=== PATIENT | female | born 1980 | race Caucasian/White ===

== ENCOUNTER 2022-12-18 22:52 | Emergency (ER) | payer OTHER, SELFPAY ==
[2022-12-18 23:06] VITALS: BP 133/70; PULSE 89; RESP 20; TEMP 36.9; O2SAT 96; BMI 39.2
--- NOTE | 2022-12-18 23:16 | ECG_ITS ---
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
--- NOTE | 2022-12-18 23:42 | CT_ITS ---
[address] [address] Patient Name: JONES HALEY MRN: [id number] date: 1980 Sex: F Assigned Patient Location: ER Current Patient Location: Accession/Order Number: [id number] Exam Date: 12/18/2022 23:53 Report Date: 12/19/2022 00:26 At the request of: JORJE ANDERSON Procedure: CT abdomen pelvis wo con EXAMINATION: CT abdomen pelvis wo con HISTORY: flank pain for 4 days; increasing left upper quadrant pressure COMPARISON: No relevant comparison available. TECHNIQUE: Axial, Coronal, and Sagittal images were obtained without and/or with IV contrast as indicated by examination type. Dose reduction techniques were achieved by using automated exposure control and/or adjustment of mA and/or kV according to patient size and/or use of iterative reconstruction technique. FINDINGS: LUNG BASES: No visible pulmonary or pleural disease. LIVER: No enlargement, atrophy, suspicious density, or significant focal lesion. BILIARY: No dilatation or calcification. PANCREAS: No lesion, fluid collection, or abnormal duct dilatation. SPLEEN: No enlargement or focal lesion. ADRENALS: No mass or enlargement. KIDNEYS: No mass, obstruction, or calcification. BOWEL/MESENTERY: No visible mass, obstruction, or bowel wall thickening. AORTA/VASCULAR: No aneurysm or dissection. RETROPERITONEUM: No mass or adenopathy. LYMPH NODES: No adenopathy. URINARY BLADDER: No visible focal wall thickening, lesion, or calculus. PELVIC ORGANS: Suspect 2.5 cm left ovarian cyst. No visible mass. Pelvic organs appropriate for patient age. ABDOMINAL WALL: No mass or hernia. BONES: No bony lesion or fracture. OTHER: Negative. CT/CT abdomen pelvis wo con IMPRESSION: 1. No acute findings to account for patient's symptoms. 2.Bilateral ovarian cysts, largest is on left, 2.5 cm, questionable clinical significance. Electronically authenticated by: SAYDA ANN Date: 12/19/2022 00:26
--- NOTE | 2022-12-18 23:51 | PC.NURSE ---
States left flank pain is a constant ache
[2022-12-18 23:56] LABS: Bilirubin Urine NEGATIVE (NEGATIVE); Blood Urine TRACE-I (NEGATIVE); Clarity Urine CLEAR (CLEAR); Color Urine LT. YELLOW (YELLOW); Glucose Urine UA NEGATIVE (NEGATIVE); Ketones Urine NEGATIVE (NEGATIVE); Leukocyte Esterase Urine NEGATIVE (NEGATIVE); Nitrite Urine NEGATIVE (NEGATIVE); Protein Urine NEGATIVE (NEG/TRACE); Specific Gravity Urine 1.025 (1.005-1.025); Urobilinogen Urine 0.2 EU/dL (0.2-1.0)
[2022-12-18 23:58] LABS: Basophils Percent Auto 0.4 % (0.2-2.0); Eosinophils Absolute Auto 0.1 10^3/uL (0.0-0.7); Eosinophils Percent Auto 0.6 % (0.9-7.0); Hematocrit 40.3 % (36.0-48.0); Hemoglobin 13.4 g/dL (12.0-16.0); Immature Granulocytes Abs Auto 0.07 10^3/uL (0.00-0.03); Immature Granulocytes Pct Auto 0.6 % (0.0-0.5); Lymphocytes Absolute Auto 2.6 10^3/uL (1.2-3.8); Lymphocytes Percent Auto 24.2 % (20.5-60.0); Mean Corpuscular HGB Conc 33.3 g/dL (29.9-35.2); Mean Corpuscular Hemoglobin 30.5 pg (26.7-34.0); Mean Corpuscular Volume 91.8 fL (81.0-99.0); Mean Platelet Volume 10.5 fL (9.5-13.5); Monocytes Absolute Auto 0.7 10^3/uL (0.3-0.8); Monocytes Percent Auto 6.4 % (1.7-12.0); Neutrophils Absolute Auto 7.3 10^3/uL (1.4-6.5); Neutrophils Percent Auto 67.8 % (43.0-75.0); Platelet Count 288 10^3/uL (150-450); Red Blood Count 4.39 10^6/uL (4.20-5.40); Red Cell Distribution Width 14.7 % (11.0-15.0); White Blood Count 10.8 10^3/uL (4.0-11.0)
[2022-12-18 23:59] LABS: Urine Microscopic Indicated YES
[2022-12-19 00:03] LABS: HCG Qualitative NEGATIVE (NEGATIVE)
[2022-12-19 00:05] LABS: Bacteria Urine NONE SEEN #/HPF (NONE SEEN); Cast Seen? NONE SEEN #/LPF (NONE SEEN); Crystals Seen? None Seen #/HPF (None Seen); Mucus Urine TRACE (NONE SEEN); Squamous Epithelial Cell Urine FEW #/LPF (NONE/RARE); Urine Culture Indicated NO; WBC Urine NONE SEEN #/HPF (NONE SEEN)
[2022-12-19] MEDS: FAMOTIDINE/PF 20 MG/2 ML VIAL IV (00:07)
[2022-12-19] MEDS: KETOROLAC TROMETHAMINE 30 MG/ML VIAL 15 MG IM (00:10)
[2022-12-19 00:12] LABS: Alanine Aminotransferase 42 U/L (14-59); Albumin Globulin Ratio 0.9; Albumin Level 3.7 g/dL (3.4-5.0); Alkaline Phosphatase 62 U/L (46-116); Anion Gap 14.9; Aspartate Amino Transferase 29 U/L (15-37); BUN Creatinine Ratio 22.1; Bilirubin Total 0.6 mg/dL (0.2-1.0); Calcium 9.1 mg/dL (8.5-10.1); Carbon Dioxide 26.1 mmol/L (21.0-32.0); Chloride 102 mmol/L (98-107); Estimated GFR (African America >60 (>=60); Estimated GFR (Non-African Ame >60 (>=60); Glucose 100 mg/dL (74-106); Sodium 138 mmol/L (136-145); Total Protein 7.7 g/dL (6.4-8.2)
[2022-12-19 00:14] LABS: Troponin I High Sensitivity 9.3 pg/mL (4.0-51.3)
[2022-12-19 00:25] LABS: Prothrombin Time 9.4 sec (9.0-11.6)
[2022-12-19 00:28] LABS: INR <0.93
--- NOTE | 2022-12-19 00:39 | ED.BACK1 ---
HPI - Back Pain/Injury General Chief Complaint: Back Pain/Injury Stated Complaint: FLANK PAIN Time Seen by Provider: 12/18/22 23:15 Source: patient Mode of arrival: walk-in Limitations: no limitations History of Present Illness HPI Narrative: The patient have history of lupus coming to the ER with bilateral flank pain that has been at least for few days she mentioned that she already was diagnosed with UTI by her telemetry medicine doctor and she finished her Keflex. She is denying any frequency urgency or any burning with urination and she denies any fever no nausea no vomiting She feels her pain from her flank is to the front right now of both side of her abdomen there was no nausea no vomiting and no fever no chills no other complaints Related Data Home Medications Medication Instructions Recorded Confirmed 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 50 mg tablet 150 mg PO DAILY 12/18/22 12/18/22 cephalexin 500 mg capsule 500 mg PO Q12H 12/18/22 12/18/22 clindamycin phosphate 1 % topical 1 applic topical DAILY 12/18/22 12/18/22 gel clobetasol 0.05 % shampoo 1 applic topical .4 times weekly 12/18/22 12/18/22 dulaglutide 0.75 mg/0.5 mL 0.75 mg subcut .weekly 12/18/22 12/18/22 subcutaneous pen injector ([facility]) duloxetine 20 mg capsule,delayed 20 mg PO DAILY 12/18/22 12/18/22 release ergocalciferol (vitamin D2) 1,250 1,250 mcg PO .3 times weekly 12/18/22 12/18/22 mcg (50,000 unit) capsule fluocinonide 0.05 % topical 1 applic topical BID 12/18/22 12/18/22 solution folic acid 1 mg tablet 1 mg PO DAILY 12/18/22 12/18/22 hydroxychloroquine 200 mg tablet 200 mg PO BID 12/18/22 12/18/22 metformin 500 mg tablet 500 mg PO BID 12/18/22 metoprolol tartrate 25 mg tablet 50 mg PO Q12H 12/18/22 12/18/22 prednisone 10 mg tablet 10 mg PO DAILY 12/18/22 12/18/22 pregabalin 75 mg capsule 75 mg PO Q8H 12/18/22 12/18/22 simvastatin 20 mg tablet 20 mg PO DAILY 12/18/22 12/18/22 tacrolimus 0.1 % topical ointment 1 applic topical Q12H PRN forehead 12/18/22 12/18/22 Previous Rx's Medication Instructions Recorded meloxicam 15 mg tablet 15 mg PO DAILY PRN pain #10 tabs 12/19/22 Allergies Allergy/AdvReac Type Severity Reaction Status Date / Time Bactrim Allergy Intermediate Uncoded 12/18/22 23:12 Review of Systems ROS Status of ROS 10 or more systems reviewed and unremarkable except as noted in history and below [facility] Social History Smoking status: Current every day smoker Exam Narrative Exam Narrative: Nurses notes and vital signs reviewed and patient is not hypoxic. General: Well-appearing and in no apparent distress. Skin: Warm, dry, no pallor noted. No rash. Head: Normocephalic, atraumatic. Neck: Supple, non-tender. Eye: Pupils are equal, round and EOMI. No scleral icterus. Ears, Nose, Mouth, and Throat: TM are clear, no nasal mucosal hypertrophy. Oral mucosa is moist, no posterior oropharynx erythema, uvula is mid-line Cardiovascular: Regular Rate and Rhythm without murmur, gallop or rub. Respiratory: No accessory muscle use or respiratory distress. Lungs are clear to auscultation, no wheezing, rales or rhonchi Chest Wall: no tenderness Back: No midline thoracic or lumbar vertebral tenderness. No CVA tenderness Musculoskeletal: normal ROM, no calf or popliteal tenderness, no lower extremity edema/swelling GI: Abdomen is soft, non-distended. Normal bowel sounds. No masses appreciated. No tenderness to palpation. No rebound, guarding, or rigidity noted. Neurological: A&O x4. No cranial nerve dysfunction observed. No truncal ataxia. Moves all extremities. Sensation intact. Psychiatric: Cooperative and interactive. Normal mood and affect. Constitutional Vital Signs, click to edit/add: Last Vital Signs Temp 98.5 F 12/18/22 23:06 Pulse 89 12/18/22 23:06 Resp 20 12/18/22 23:06 BP 133/70 12/18/22 23:06 Pulse Ox 96 12/18/22 23:06 O2 Del Method Room Air 12/18/22 23:06 Course Vital Signs Vital signs: Vital Signs Temperature 98.5 F 12/18/22 23:06 Pulse Rate 89 12/18/22 23:06 Respiratory Rate 20 12/18/22 23:06 Blood Pressure 133/70 12/18/22 23:06 Pulse Oximetry 96 12/18/22 23:06 Oxygen Delivery Method Room Air 12/18/22 23:06 Temperature 98.5 F 12/18/22 23:06 Pulse Rate 89 12/18/22 23:06 Respiratory Rate 20 12/18/22 23:06 Blood Pressure 133/70 12/18/22 23:06 Pulse Oximetry 96 12/18/22 23:06 Oxygen Delivery Method Room Air 12/18/22 23:06 MDM - Back Pain/Injury MDM Narrative Medical decision making narrative: EKG showing sinus rhythm with a heart rate of [address] elevation or depression The patient CBC and chemistry as well as her troponin and her EKG did not show any acute pathology and her CT abdomen pelvis also did not show any pathology The patient pain right now is mostly secondary to musculoskeletal she will be treated with Mobic instructed not to use ibuprofen with it The patient is to follow up with primary care physician in next 2-3 days or to return to the emergency department should any of the signs or symptoms worsen or new symptoms develop. The patient agrees with the following Diagnosis and Treatment plan and the patient will be discharged home. Lab Data Labs: Lab Results 12/18/22 Range/Units 23:40 WBC 10.8 (4.0-11.0) 10^3/uL RBC 4.39 (4.20-5.40) 10^6/uL Hgb 13.4 (12.0-16.0) g/dL Hct 40.3 (36.0-48.0) % MCV 91.8 (81.0-99.0) fL MCH 30.5 (26.7-34.0) pg MCHC 33.3 (29.9-35.2) g/dL RDW 14.7 (11.0-15.0) % Plt Count 288 (150-450) 10^3/uL MPV 10.5 (9.5-13.5) fL Neut % (Auto) 67.8 (43.0-75.0) % Lymph % (Auto) 24.2 (20.5-60.0) % [place] % (Auto) 6.4 (1.7-12.0) % Eos % (Auto) 0.6 L (0.9-7.0) % Baso % (Auto) 0.4 (0.2-2.0) % Neut # (Auto) 7.3 H (1.4-6.5) 10^3/uL Lymph # (Auto) 2.6 (1.2-3.8) 10^3/uL [place] # (Auto) 0.7 (0.3-0.8) 10^3/uL Eos # (Auto) 0.1 (0.0-0.7) 10^3/uL Baso # (Auto) 0.0 (0.0-0.1) 10^3/uL Abs Immat Gran (auto) 0.07 H (0.00-0.03) 10^3/uL Imm/Tot Granulo (auto) 0.6 H (0.0-0.5) % PT 9.4 (9.0-11.6) sec INR <0.93 Sodium 138 (136-145) mmol/L Potassium 5.0 (3.5-5.1) mmol/L Chloride 102 (98-107) mmol/L Carbon Dioxide 26.1 (21.0-32.0) mmol/L Anion Gap 14.9 BUN 17.0 (7.0-18.0) mg/dL Creatinine 0.77 (0.55-1.02) mg/dL Est GFR ( Amer) >60 (>=60) Est GFR (Non-Af Amer) >60 (>=60) BUN/Creatinine Ratio 22.1 Glucose 100 (74-106) mg/dL Calcium 9.1 (8.5-10.1) mg/dL Total Bilirubin 0.6 (0.2-1.0) mg/dL AST 29 (15-37) U/L ALT 42 (14-59) U/L Alkaline Phosphatase 62 (46-116) U/L Troponin I High Sens 9.3 (4.0-51.3) pg/mL Total Protein 7.7 (6.4-8.2) g/dL Albumin 3.7 (3.4-5.0) g/dL Globulin 4.0 g/dL Albumin/Globulin Ratio 0.9 Serum HCG, Qual Negative (NEGATIVE) Urine Color Lt. yellow (YELLOW) Urine Clarity Clear (CLEAR) Urine pH 6.0 (5.0-9.0) Ur Specific [place] 1.025 (1.005-1.025) Urine Protein Negative (NEG/TRACE) mg/dL Urine Glucose (UA) Negative (NEGATIVE) mg/dL Urine Ketones Negative (NEGATIVE) mg/dL Urine Occult Blood Trace-i (NEGATIVE) Urine Nitrite Negative (NEGATIVE) Urine Bilirubin Negative (NEGATIVE) Urine Urobilinogen 0.2 (0.2-1.0) EU/dL Ur Leukocyte Esterase Negative (NEGATIVE) Urine RBC 2-5 A (0-2) #/HPF Urine WBC None seen (NONE SEEN) #/HPF Ur Squamous Epith Cells Few A (NONE/RARE) #/LPF Urine Crystals None seen (None Seen) #/HPF Urine Bacteria None seen (NONE SEEN) #/HPF Urine Casts None seen (NONE SEEN) #/LPF Urine Mucus Trace A (NONE SEEN) Ur Culture Indicated? No Discharge Plan Discharge Chief Complaint: Back Pain/Injury Clinical Impression: Muscle strain of upper back Patient Disposition: Home, Self-Care Time of Disposition Decision: 00:43 Prescriptions / Home Meds: New meloxicam 15 mg tablet 15 mg PO DAILY PRN (Reason: pain ) Qty: 10 0RF No Action 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 50 mg tablet 150 mg PO DAILY cephalexin 500 mg capsule 500 mg PO Q12H clindamycin phosphate 1 % gel 1 applic TOPICAL DAILY clobetasol 0.05 % shampoo 1 applic TOPICAL .4 times weekly Trulicity 0.75 mg/0.5 mL pen injector 0.75 mg SUBCUT .weekly duloxetine 20 mg capsule,delayed release(DR/EC) 20 mg PO DAILY ergocalciferol (vitamin D2) 1,250 mcg (50,000 unit) capsule 1,250 mcg PO .3 times weekly fluocinonide 0.05 % solution 1 applic TOPICAL BID folic acid 1 mg tablet 1 mg PO DAILY hydroxychloroquine 200 mg tablet 200 mg PO BID metformin 500 mg tablet 500 mg PO BID metoprolol tartrate 25 mg tablet 50 mg PO Q12H prednisone 10 mg tablet 10 mg PO DAILY pregabalin 75 mg capsule 75 mg PO Q8H simvastatin 20 mg tablet 20 mg PO DAILY tacrolimus 0.1 % ointment 1 applic TOPICAL Q12H PRN (Reason: forehead) Instructions: Flank Pain (ED) Stand Alone Forms: Portal Instructions Referrals: SAMSON ENCISO [Primary Care Provider] - 1 week
[2022-12-19 01:26] VITALS: BP 102/64; PULSE 64; RESP 18; O2SAT 97
== END 2022-12-19 01:37 | disposition home or self-care (01) ==
PROVIDERS: Emergency Provider Emergency Medicine; PCP Nurse Practitioner Family
DX: S29.012A Strain of muscle and tendon of back wall of thorax, initial encounter (principal); X58.XXXA Exposure to other specified factors, initial encounter; Z87.440 Personal history of urinary (tract) infections; Z79.899 Other long term (current) drug therapy; Z79.84 Long term (current) use of oral hypoglycemic drugs; F17.210 Nicotine dependence, cigarettes, uncomplicated
CPT/HCPCS: 36415; 74176; 80053; 81001; 81003; 84484; 84703; 85025; 85610; 93005; 99285

== ENCOUNTER 2023-06-15 07:40 | Outpatient (OUT) | payer OTHER, SELFPAY ==
--- NOTE | 2023-06-15 08:44 | CA_ITS ---
Patient Name: JONES HALEY MR#: [id number] : 1980 Exam Date: 06/15/2023 Ordering Doctor: KELI BRITTON ECHOCARDIOGRAM REPORT PROCEDURE: CA ECHO DOPPLER COMPLETE INDICATIONS: Irregular heart rate, obstructive sleep apnea, lupus, hypertension COMPARISON: None. DESCRIPTION: COMPLETE ECHOCARDIOGRAM Real-time transthoracic echocardiography with 2D, M-mode, spectral and color flow Doppler performed. QUALITY: Technical quality was good. 67 , 275#, BSA 2.32 m2 LEFT VENTRICLE: Normal chamber size. Borderline left ventricular hypertrophy. LV EF: Normal left ventricular ejection fraction, (>55%). DIASTOLIC: Normal diastolic function. ATRIAL SEPTUM: Inadequately seen. LEFT ATRIUM: Normal chamber size. RIGHT ATRIUM: Normal chamber size. RIGHT VENTRICLE: Normal chamber size. Normal right ventricular systolic function. TRICUSPID VALVE: Normal mobility and thickness. No stenosis with no regurgitation. Unable to assess right-sided pressures due to lack of measurable tricuspid regurgitation. MITRAL VALVE: Normal mobility and thickness. No evidence of mitral valve stenosis. There is no mitral annular calcification. No mitral regurgitation. AORTIC VALVE: Normal trileaflet appearance. No visible sclerosis. Normal leaflet mobility. No evidence of aortic valve stenosis. No aortic regurgitation. AORTIC ROOT: Normal diameter and appearance. PULMONIC VALVE: Normal thickness and mobility. No stenosis. No regurgitation. PERICARDIUM: Anterior free space; trivial effusion versus fat pad. IVC: Collapses with inspirations. CONCLUSION: 1. Global left ventricular systolic function is normal; visually estimated ejection fraction is 60 to 65% 2. Borderline left ventricular hypertrophy 3. The right ventricle is normal in size and systolic function 4. No significant valvular abnormalities 5. Anterior free space; trivial effusion versus fat pad Adult Echocardiography Procedure Report Left Ventricle LVEDD (3.7 - 5.6 cm): 5.00 cm LVESD (2.2 - 4.0 cm): 3.39 cm LVIVS thickness (0.6 - 1.2 cm): 1.07 cm LVPW thickness (0.5 - 1.0 cm): 1.08 cm e': 0.11 m/s E - e': 8.71 LVOT Max Gradient: 3.76 mm[Hg] LVOT Area (cm2): 0.97 m/s Peak Velocity (LVOT): 0.97 m/s Mean Velocity (LVOT): 0.60 m/s LVOT Diameter 2.26 cm Left Atrium LA Volume Index (2D A2C): 27.09 ml/m2 Left Atrium Systolic Dimension: 4.34 cm Mitral Valve MV E to A Ratio: 1.17 Mitral Valve A-Wave Peak Velocity: 0.81 m/s Mitral Valve E-Wave Peak Velocity: 0.94 m/s Right Ventricle Aorta AO Root Diam: 2.79 cm Ascending Ao Diam: 2.45 cm Aortic Valve AoV Area (Peak Dima): 3.69 cm2, 3.69 cm2 AoV Area (VTI): 4.04 cm2, 4.04 cm2 Peak Velocity(Antegrade Flow): 1.06 m/s Peak Gradient(Antegrade Flow): 4.45 mm[Hg] Mean Velocity(Antegrade Flow): 0.70 m/s Mean Gradient(Antegrade Flow): 2.25 mm[Hg] Velocity Time Integral: 23.25 cm Tricuspid Valve Pulmonic Valve Peak Velocity: 0.98 m/s Peak Gradient: 3.46 mm[Hg], 4.18 mm[Hg] Right Atrium Right Atrium Systolic Pressure: 46.40 ml, 46.40 ml Dictated by: Calos Mendoza M.D. on 06/15/2023 at 10:28 Approved by: Calos Mendoza M.D. on 06/15/2023 at 10:30
--- NOTE | 2023-06-15 08:44 | CA_ITS ---
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1980 Requested By: [id number] Order Number: [id number] Reading MD: SHWETA HOLLIDAY Interpretive Statements Predominant rhythm is sinus with average rate of 73 bpm Tachycardia - max rate of 189 bpm (PSVT) - 1 episode or PSVT w/ longest episode of 7 beats - longest episode of 45min 4sec w/ rates between 118-142 bpm Bradycardia - min rate of 50 bpm, occurring during sleep - longest episode of 46min 15sec w/ rates between 53-56 bpm Ventricular ectopy - 97 tota(l <1%) - 97 PVC Patient triggered events: 13 - not associated w/ symptoms - associated with rates of 111 and 107 bpm Impression: Predominant rhythm is sinus with average rate of 73 bpm Fastest rate of 189 bpm (PSVT) and slowest rate of 50 bpm 97 PVC No pauses or blocks Electronically Signed On 07-06-2023 20:30:27 EST by SHWETA HOLLIDAY
[2023-06-15 10:26] LABS: Free T4 1.19 ng/dL (0.76-1.46)
[2023-06-15 10:37] LABS: Chol HDL Ratio 5.5; Cholesterol 283 mg/dL (<=200); HDL Cholesterol 51 mg/dL (40-60); Thyroid Stimulating Hormone 0.381 uIU/mL (0.358-3.740); Triglycerides 289 mg/dL (<=150); VLDL CHOLESTEROL 57.8 mg/dL
== END 2023-06-15 07:41 | disposition home or self-care (01) ==
LOC: CARD 07:41
PROVIDERS: PCP Nurse Practitioner Family
DX: I49.9 Cardiac arrhythmia, unspecified (principal); G47.33 Obstructive sleep apnea (adult) (pediatric); R00.0 Tachycardia, unspecified; I10 Essential (primary) hypertension
CPT/HCPCS: 36415; 80061; 84439; 84443; 93242; 93306

== ENCOUNTER 2023-06-24 16:17 | Outpatient (OUT) | payer OTHER, SELFPAY ==
--- NOTE | 2023-06-24 16:33 | XR_ITS ---
The [address] [address] Patient Name: JONES HALEY MRN: [id number] date: 1980 Sex: F Assigned Patient Location: LAB Current Patient Location: LAB Accession/Order Number: [id number] Exam Date: 06/24/2023 16:35 Report Date: 06/24/2023 18:07 At the request of: SAMSON ENCISO Procedure: XR abdomen 1V EXAM: XR abdomen 1V HISTORY: abdominal pressure R10.9 COMPARISON: No prior KUB. CT abdomen pelvis 12/18/2022. TECHNIQUE: Supine KUB. FINDINGS: Mildly prominent small bowel gas abdomen without significant distention. Normal colon gas pattern. Stool cecum, ascending colon and descending colon. No calcification seen. XR/XR abdomen 1V IMPRESSION: Mildly prominent small bowel gas mid abdomen nonspecific. No significant distention or findings suggesting bowel obstruction. Moderate colonic stool. Electronically authenticated by: JEMMA ESPINO Date: 06/24/2023 18:07
[2023-06-24 16:50] LABS: Basophils Percent Auto 0.3 % (0.2-2.0); Eosinophils Percent Auto 0.2 % (0.9-7.0); Hematocrit 41.1 % (36.0-48.0); Hemoglobin 13.2 g/dL (12.0-16.0); Immature Granulocytes Abs Auto 0.11 10^3/uL (0.00-0.03); Immature Granulocytes Pct Auto 0.9 % (0.0-0.5); Lymphocytes Absolute Auto 2.6 10^3/uL (1.2-3.8); Lymphocytes Percent Auto 21.6 % (20.5-60.0); Mean Corpuscular HGB Conc 32.1 g/dL (29.9-35.2); Mean Corpuscular Hemoglobin 30.9 pg (26.7-34.0); Mean Corpuscular Volume 96.3 fL (81.0-99.0); Mean Platelet Volume 10.2 fL (9.5-13.5); Monocytes Absolute Auto 0.7 10^3/uL (0.3-0.8); Monocytes Percent Auto 5.8 % (1.7-12.0); Neutrophils Absolute Auto 8.6 10^3/uL (1.4-6.5); Neutrophils Percent Auto 71.2 % (43.0-75.0); Platelet Count 302 10^3/uL (150-450); Red Blood Count 4.27 10^6/uL (4.20-5.40); Red Cell Distribution Width 14.2 % (11.0-15.0); White Blood Count 12.1 10^3/uL (4.0-11.0)
[2023-06-24 17:04] LABS: Bilirubin Urine NEGATIVE (NEGATIVE); Blood Urine TRACE-I (NEGATIVE); Clarity Urine CLEAR (CLEAR); Color Urine YELLOW (YELLOW); Glucose Urine UA NEGATIVE (NEGATIVE); Ketones Urine NEGATIVE (NEGATIVE); Leukocyte Esterase Urine NEGATIVE (NEGATIVE); Nitrite Urine NEGATIVE (NEGATIVE); Protein Urine NEGATIVE (NEG/TRACE); Specific Gravity Urine >=1.030 (1.005-1.025); Urobilinogen Urine 0.2 EU/dL (0.2-1.0); pH Urine 5.5 (5.0-9.0)
[2023-06-24 17:09] LABS: Estimated Average Glucose 131 mg/dL; Glycohemoglobin A1C 6.2 % (4.5-6.2)
[2023-06-24 17:11] LABS: Urine Microscopic Indicated YES
[2023-06-24 17:12] LABS: Alanine Aminotransferase 38 U/L (14-59); Albumin Globulin Ratio 0.9; Albumin Level 3.5 g/dL (3.4-5.0); Alkaline Phosphatase 67 U/L (46-116); Anion Gap 14.6; Aspartate Amino Transferase 13 U/L (15-37); BUN Creatinine Ratio 14.9; Bilirubin Total 0.3 mg/dL (0.2-1.0); Calcium 9.2 mg/dL (8.5-10.1); Carbon Dioxide 25.1 mmol/L (21.0-32.0); Chloride 102 mmol/L (98-107); Estimated GFR (African America >60 (>=60); Estimated GFR (Non-African Ame >60 (>=60); Globulin 3.9 g/dL; Glucose 96 mg/dL (74-106); Potassium 3.7 mmol/L (3.5-5.1); Sodium 138 mmol/L (136-145); Total Protein 7.4 g/dL (6.4-8.2)
[2023-06-24 17:35] LABS: Bacteria Urine NONE SEEN #/HPF (NONE SEEN); Cast Seen? NONE SEEN #/LPF (NONE SEEN); Crystals Seen? None Seen #/HPF (None Seen); Mucus Urine NONE SEEN (NONE SEEN); RBC Urine 0-2 #/HPF (0-2); Squamous Epithelial Cell Urine RARE #/LPF (NONE/RARE); WBC Urine NONE SEEN #/HPF (NONE SEEN)
[2023-06-24 17:36] LABS: Urine Culture Indicated NO
== END 2023-06-24 16:18 | disposition home or self-care (01) ==
LOC: LAB 16:19
PROVIDERS: PCP Nurse Practitioner Family; Visit Provider Nurse Practitioner Family
DX: R10.9 Unspecified abdominal pain (principal)
CPT/HCPCS: 36415; 74018; 80053; 81001; 83036; 85025; 87086

== ENCOUNTER 2023-06-26 18:31 | Emergency (ER) | payer OTHER, SELFPAY ==
--- OUTSIDE RECORDS SUMMARY | 2023-06-26 18:38 | XMS_ITS | CCD ---
Author Name Unknown Address [address] [facility] [id number] [place] [address] Organization [facility] Care Team Providers Care Spotter Driver Name Role Phone VICTOR MANUEL GUZMAN Referring Unavailable Bettina Jiménez Admitting Unavailable Bettina Jiménez Attending Unavailable Lui Salomon Primary Care Unavailable Unavailable Primary Care Provider UnavailJAREN Stuart Referring Unavailable Britt MANAGER COUNTRY.TRUE, Gay Primary Care Provider Mirela Kelsey Unavailable Britt MANAGER COUNTRY.[place], Gay Primary Care Provider Madelaine Ferris MD Unavailable Madelaine Ferris MD Primary Care Provider [phone] Madelaine Ferris MD Unavailable Madelaine Ferris MD Primary Care Provider [phone] Madelaine Ferris MD Unavailable Madelaine Ferris MD Primary Care Provider [phone] MADELAINE LEYVA Primary Care Unavailable MISC, DR SMITH Consulting Unavailable MISC, DR SMITH Attending Unavailable MISC, DR SMITH Admitting Unavailable MADELAINE GOMEZ Consulting Unavailable ENID Harris, DR GALLEGOS Consulting Unavailable ENID ., DR GALLEGOS Attending Unavailable JOSY ., DR BURKETT Primary Care Unavailable ENID Harris, DR GALLEGOS Admitting Unavailable KRISTINA GARRETT Consulting Unavailable JOSY ., DR BURKETT Primary Care Unavailable JOSY ., DR BURKETT Consulting Unavailable JOSY ., DR BURKETT Attending Unavailable JOSY ., DR BURKETT Admitting Unavailable GAY ENCISO Attending Unavailable GAY ENCISO Admitting Unavailable JOSY Harris, DR BURKETT Primary Care Unavailable JOSY ., DR BURKETT Consulting Unavailable HOY ., DR BURKETT Primary Care Unavailable HOY ., DR UBRKETT Consulting Unavailable HOY ., DR BURKETT Attending Unavailable HOY ., DR BURKETT Admitting Unavailable BLANK, DR MIRELA Braswell Unavailable BLANK, DR DIETZ Attending Unavailable BLANK, DR DIETZ Admitting Unavailable GAY ENCISO Primary Care Unavailable BLANK, DR DIETZ Consulting Unavailable BLANK, DR DIETZ Attending Unavailable BLANK, DR DIETZ Admitting Unavailable HOY ., DR BURKETT Primary Care Unavailable PARMJIT ., MICKY Attending Unavailable PARMJIT ., MICKY Admitting Unavailable DORCHESTER, DR AURORA Pacheco Consulting Unavailable HOY ., DR BURKETT Primary Care Unavailable PARMJIT ., MICKY Consulting Unavailable HOY ., DR BURKETT Primary Care Unavailable PARMJIT ., MICKY Consulting Unavailable PARMJIT ., MICKY Attending Unavailable PARMJIT ., MICKY Admitting Unavailable HOY ., DR BURKETT Primary Care Unavailable HOY ., DR BURKETT Consulting Unavailable HOY ., DR BURKETT Attending Unavailable HOY ., DR BURKETT Admitting Unavailable ZIEBER, DR SAYDA Nelson Consulting Unavailable SHARRON ROGERS Attending Unavailab SHARRON Braden Attending Unavailab SHARRNO Braden Referring Unavailab SHARRON Braden Referring Unavailab Charles Ashraf DO Primary Care Provider Michelle Washington Unavailable MICHELLE BRITTON Attending Unavailable CHARLES MITCEHLL Primary Care Unavailab MICHELLE Paulson Referring Unavailable HOY, MADELAINE M Primary Care Unavailable LYNNE NI Referring Unavailable HOY, MADELAINE M Primary Care Unavailable LYNNE NI Attending Unavailable HOY, MADELAINE M Primary Care Unavailable HOY, MADELAINE M Primary Care Unavailable JOSE NAJERA Attending Unavailable HOY, MADELAINE M Primary Care Unavailable HOY, MADELAINE M Primary Care Unavailable JOSE NAJERA Attending Unavailable HOY, MADELAINE M Primary Care Unavailable HOY, MADELAINE M Primary Care Unavailable HOY, MADELAINE M Primary Care Unavailable HOY, MADELAINE M Primary Care Unavailable WILMER DRIVER Attending Unavailable HOY, MADELAINE M Primary Care Unavailable HOY, MADELAINE M Primary Care Unavailable CHRISTIE PHAN Referring Unavailable CHRISTIE PHAN Attending Unavailable HOY, MADELAINE M Primary Care Unavailable HOY, MADELAINE M Primary Care Unavailable TIMMY HECK Attending Unavailable HOY, MADELAINE M Primary Care Unavailable LYNNE NI Referring Unavailable HOY, MADELAINE M Primary Care Unavailable LYNNE NI Referring Unavailable WILMER DRIVER Attending Unavailable HOY, MADELAINE M Primary Care Unavailable PATADIA, MISTY Referring Unavailable PATADIA, MISTY Attending Unavailable HOY, MADELAINE M Primary Care Unavailable CHRISTIE PHAN Attending Unavailable HOY, MADELAINE M Primary Care Unavailable HOY, MADELAINE M Primary Care Unavailable HOY, MADELAINE M Primary Care Unavailable HOY, MADELAINE M Primary Care Unavailable HOY, MADELAINE M Primary Care Unavailable HOY, MADELAINE M Primary Care Unavailable HOY, MADELAINE M Primary Care Unavailable HOY, MADELAINE M Primary Care Unavailable HOY, MADELAINE M Primary Care Unavailable HOY, MADELAINE M Primary Care Unavailable HOY, MADELAINE M Primary Care Unavailable WILMER DRIVER Attending Unavailable HOY, MADELAINE M Primary Care Unavailable HOY, MADELAINE M Primary Care Unavailable CHRISTIE PHAN Attending Unavailable HOY, MADELAINE M Primary Care Unavailable HOY, MADELAINE M Primary Care Unavailable JOSE NAJERA Attending Unavailable HOY, MADELAINE M Primary Care Unavailable HOY, MADELAINE M Primary Care Unavailable CHRISTIE PHAN Attending Unavailable HOY, MADELAINE M Primary Care Unavailable HOY, MADELAINE M Primary Care Unavailable Allergies Allergy Classification Reported Allergen(s) Allergy Type Date of Onset Reaction(s) Facility Sulfamethoxazole / Trimethoprim (1 source) Sulfamethoxazole / Trimethoprim Drug Allergy 10-08-19 21 [facility] (20 sources) Codeine; Translations: [CODEINE] Drug Allergy 05-31-19 15 Other: See Comments [facility] [place] (20 sources) Latex; Translations: [LATEX] Drug Allergy 05-31-19 15 Rash [facility] [place] (20 sources) Sulfamethoxazole; Translations: [SULFAMETHOXAZOLE] Drug Allergy 05-31-19 15 GI Upset [facility] [place] (20 sources) Clindamycin; Translations: [CLINDAMYCIN] Drug Allergy 03-04-20 22 Unknown [facility] (4 sources) Sulfamethoxazole / Trimethoprim Drug Allergy lymph swelling [facility] Other (20 sources) Doxycycline; Translations: [DOXYCYCLINE] Drug Allergy 01-20-20 22 Other: See Comments, Other, Unknown [facility] [place] (20 sources) Sulfamethoxazole / Trimethoprim; Translations: [SULFAMETHOXAZOLE-T RIMETHOPRIM] Drug Allergy 02-24-20 16 Swelling, Other [facility] (20 sources) Trimethoprim; Translations: [TRIMETHOPRIM] Drug Allergy 01-20-20 22 Other: See Comments [facility] [place] (1 source) Latex Drug allergy (disorder) 10-04-19 16 [facility] (1 source) Sulfamethoxazole / Trimethoprim Drug Allergy 02-24-20 16 [facility] Medications Current Medications Medication Drug Class(es) Dates Sig (Normalized) Sig (Original) acetaminophen 500 mg oral tablet (20 sources) take 2 tablets by mouth every eight hours as needed acetaminophen (Tylenol) 500 mg tablet Take 2 tablets (1,000 mg) by mouth every 8 hours if needed for mild pain (1 - 3), moderate pain (4 - 6), headaches or fever (temp greater than 38.0 C). 0 Active acetaminophen (T YLENOL) 500 mg tablet Take 1,000 mg by mouth. 0 Active Comment on above: Take 1,000 mg by kristal th. amLODIPine 2.5 mg oral tablet (1 source) Dihydropyridine Calcium Channel Micah Start: 10-08-19 21 take 1 tablet by mouth once daily amLODIPine (NORVASC) 2.5 MG tablet Take 1 tablet by mouth daily 30 tablet 3 10/07/2020 Active amoxicillin 875 mg oral tablet (2 sources) Penicillin-class Antibacterial Start: 10-20-19 21 take 1 tablet by mouth every twelve hours Amoxicillin 875 MG 1 tablet Orally every 12 hrs for 7 days September, Active amoxicillin 875 mg / clavulanate 125 mg oral tablet (1 source) Penicillin-class Antibacterial take 1 tablet by mouth twice daily amoxicillin-clavula john (AUGMENTIN) 875-125 MG per tablet Take 1 tablet by mouth 2 times daily 0 Active aspirin 81 mg chewable tablet (20 sources) Platelet Aggregation Inhibitor, Nonsteroidal Anti-inflammatory Drug aspirin 81 mg chewable tablet Chew 1 tablet (81 mg) once daily. 0 Active Comment on above: Take 81 mg by mouth. azaTHIOprine 50 mg oral tablet (20 sources) Purine Antimetabolite Start: 02-17-20 23 take 3 tablets by mouth three times daily azaTHIOprine (Imuran) 50 mg tablet Take 3 tablets (150 mg) by mouth 3 times a day. 0 02/16/2023 Active Start: 11-24-2022 End: 02-16-2023 take 3 tablets by mouth once daily at mealtime azaTHIOprine (IMURAN) 50 mg tablet Indications: Other systemic lupus erythematosus with other organ involvement (HCC) , 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 senior living 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 TAKE 3 TABLETS BY MOUTH DAILY WITH FOOD. HOLD IF ON ANTIBIOTICS OR ILL. 90 tablet 3 02/16/2023 Active Start: 08-19-2022 End: 11-24-2022 take 2 tablets by mouth once daily at mealtime azaTHIOprine (IMURAN) 50 mg tablet Indications: Other systemic lupus erythematosus with other organ involvement (HCC) , 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 senior living 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 Take 2tab daily by mouth with food. Hold if on antibiotics or ill. 60 tablet 3 08/19/2022 11/24/2022 Discontinued Start: 06-15-2022 End: 08-19-2022 take 1 tablet by mouth once daily at mealtime azaTHIOprine (IMURAN) 50 mg tablet Indications: Other systemic lupus erythematosus with other organ involvement (HCC) Take 1tab daily by mouth with food. Hold if on antibiotics or ill. 30 tablet 3 06/15/2022 08/19/2022 Discontinued Comment on above: Take 1tab daily by m outh with food. Hold if on antibiotics or ill. Take 2tab daily by m outh with food. Hold if on antibiotics or ill. Take 3tab daily by m outh with food. Hold if on antibiotics or ill. TAKE 3 TABLETS BY MO UTH DAILY WITH FOOD. HOLD IF ON ANTIBIOTICS OR ILL. 1 ml belimumab 200 mg/ml auto-injector (15 sources) B Lymphocyte Stimulator-specific Inhibitor Start: 023 inject 1 mL by subcutaneous injection every week belimumab (Benlysta) 200 mg/mL injection Inject 1 mL (200 mg) under the skin 1 (one) time per week. 0 02/04/2023 Active Comment on above: Inject 200mg (1 pen) subcutaneously once weekly Cephalexin (2 sources) Cephalosporin Antibacterial Keflex Active clindamycin 0.01 mg/mg topical gel (1 source) Lincosamide Antibacterial Start: 024 clindamycin phosphate 1 % gel, once daily Apply topically once daily. 0 05/26/2023 Active clobetasol propionate 0.5 mg/ml medicated shampoo (1 source) Corticosteroid Start: 023 clobetasoL 0.05 % shampoo Apply topically. 1 application to the scalp in the shower topically 3-4 times a week 0 10/23/2022 Active CPAP/BIPAP/OTHER (20 sources) Start: 022 End: 050 CPAP/BIPAP/OTHER Indications: JOSE RAFAEL (obstructive sleep apnea) Type .CPAPSettings into a note to see current settings/supplies/ DME information. 1 Each 0 05/05/2022 09/19/2049 Active Start: 04-13-2022 End: 04-26-2023 CPAP/BIPAP/OTHER Indications : JOSE RAFAEL (obstructive sleep apnea) Type .CPAPSettings into a note to see current settings/supplies/DME information. 1 Each 0 04/13/2022 04/26/2023 Discontinued (Duplicate Entry) Start: 04-13-2022 End: 08-28-2049 CPAP/BIPAP/OTHER Indications : JOSE RAFAEL (obstructive sleep apnea) Type .CPAPSettings into a note to see current settings/supplies/DME information. 1 Each 0 04/13/2022 08/28/2049 Active Comment on above: Type .CPAPSettings i nto a note to see current settings/supplies/DME information. ergocalciferol 1.25 mg oral capsule (20 sources) Provitamin D2 Compound Start: 2022 End: 2022 take 1 capsule by mouth every week ergocalciferol (Vitamin D-2) 1.25 MG (91606 UT) capsule Take 1 capsule (50,000 Units) by mouth 1 (one) time per week. 0 01/24/2023 Active Start: 05-18-2022 ergocalciferol 50,000 unit capsule (VITAMIN D2, DRISDOL) Indications: Vitamin D deficiency (take by mouth with food 3times a week, ONE CAPSULE ON MON, Fri) FOR A TOTAL OF 8 WEEKS, then once a week thereafter. 28 capsule 1 05/18/2022 Active Start: 10-26-2021 End: 03-05-2022 ergocalciferol 50,000 unit c apsule (VITAMIN D2, DRISDOL) Indications: Vitamin D deficiency (take by mouth with food 2times a week, ONE CAPSULE ON Mondays, Fridays) FOR A TOTAL OF 8 WEEKS, then once a week thereafter. 20 capsule 1 03/05/2022 Active Start: 03-06-2021 ergocalciferol 50,000 unit capsule (VITAMIN D2, DRISDOL) Indications: Vitamin D deficiency (take by mouth with food 3times a week, ONE CAPSULE ON Mondays, Wed, Fridays) FOR A TOTAL OF 8 WEEKS. 24 capsule 0 03/06/2021 Active Comment on above: (take by mouth with food 3times a week, ONE CAPSULE ON Mondays, Wed, Fridays) FOR A TOTAL OF 8 WEEKS. (take by mouth with food 3times a week, ONE CAPSULE ON Mondays, Wed, Fridays) FOR A TOTAL OF 10 WEEKS, then once a week thereafter. (take by mouth with food 2times a week, ONE CAPSULE ON Mondays, Fridays) FOR A TOTAL OF 8 WEEKS, then once a week thereafter. (take by mouth with food 3times a week, ONE CAPSULE ON Mondays, Fridays) FOR A TOTAL OF 8 WEEKS, then once a week thereafter. fluocinonide 0.5 mg/ml topical solution (1 source) Corticosteroid Start: 10-21-19 fluocinonide (Lidex) 0.05 % external solution Apply topically once daily. apply to affected area on scalp topically qd-bid prn for 30 day(s) 0 10/20/2022 Active folic acid 1 mg oral tablet (20 sources) Start: 03-18-20 22 End: 03-13-20 23 take 1 tablet by mouth once daily folic acid (Folvite) 1 mg tablet Take 1 tablet (1 mg) by mouth once daily. 0 01/15/2023 Active Comment on above: Take 1 tablet by kristal th once daily. TAKE 1 TABLET BY KRISTAL TH EVERY DAY ibuprofen 200 mg oral tablet (20 sources) Nonsteroidal Anti-inflammatory Drug take 3 tablets by mouth every eight hours as needed ibuprofen 200 mg tablet Take 3 tablets (600 mg) by mouth every 8 hours if needed. 0 Active take 1 tablet by kristal th every six hours as needed for pain ibuprofen (ADVIL;MOTRIN) 200 MG tablet T jaqui 200 mg by mouth every 6 hours as needed for Pain 0 Active Comment on above: Take 600 mg by mouth . metoprolol tartrate 50 mg oral tablet (20 sources) beta-Adrenergic Micah Start: 04-23-2023 take 2 tablets by mouth twice daily metoprolol tartrate (Lopressor) 50 mg tablet Take 2 tablets by mouth twice a day. 0 04/23/2023 Active Start: 05-25-2022 take 1 tablet by [facility] twice daily metoprolol tartrate, short acting, (LOPRESSOR) 50 mg tablet Take 50 mg by mouth twice daily. 0 05/25/2022 Active Start: 07-29-2020 End: 10-07-2020 take 1 tablet by mouth twice daily metoprolol tartrate, short acting, (LOPRESSOR) 25 mg tablet Take 25 mg by mouth twice daily. 0 07/29/2020 Active Comment on above: Take 25 mg by mouth twice daily. Take 50 mg by mouth twice daily. montelukast 10 mg oral tablet (1 source) Leukotriene Receptor Antagonist Start: 4 End: 5 take 1 tablet by mouth once daily at bedtime montelukast (Singulair) 10 mg tablet Take 1 tablet (10 mg) by mouth once daily at bedtime. 0 05/25/2023 05/24/2024 Active Naltrexone (15 sources) Opioid Antagonist Start: 2 End: 3 take 1 capsule by mouth once daily naltrexone capsule 1 mg TAKE ONE CAPSULE BY MOUTH DAILY 0 01/19/2022 07/25/2022 Discontinued Start: 01-19-2022 take 1 capsule by [facility] once daily naltrexone capsule 1 mg TAKE ONE CAPSULE BY MOUTH DAILY 0 01/19/2022 Active Comment on above: TAKE ONE CAPSULE BY MOUTH DAILY nitroglycerin 0.4 mg sublingual tablet (20 sources) Nitrate Vasodilator Start: 021 End: nitroglycerin sublingual (NITROQUICK) 0.4 mg SL tablet Dissolve 0.4 mg under the tongue. 0 10/07/2020 07/25/2022 Discontinued Comment on above: Dissolve 0.4 mg unde r the tongue. phentermine hydrochloride 37.5 mg oral tablet (6 sources) Sympathomimetic Amine Anorectic Start: 12-08-23 End: take 1 tablet by mouth once daily before mealtime phentermine (Adipex-P) 37.5 mg tablet Take 1 tablet (37.5 mg) by mouth once daily in the morning. Take before meals. 0 05/26/2023 06/09/2023 Discontinued (Med List Cleanup) Comment on above: Take 1 tablet by kristal th daily before breakfast for 30 days. Take 1 tablet by kristal th daily before breakfast for 90 days. predniSONE 10 mg oral tablet (20 sources) Start: take 1 tablet by mouth once daily predniSONE (Deltasone) 10 mg tablet Take 1 tablet (10 mg) by mouth once daily. 0 05/12/2023 Active Start: 05-12-2023 predniSONE (DE LTASONE) 10 mg tablet Indications: Other systemic lupus erythematosus with other organ involvement (HCC) Take 40mg daily x 5days, then decrease 5mg every 5days until 10mg daily thereafter 120 tablet 1 05/12/2023 Active Start: 08-17-2022 predniSONE (DE LTASONE) 10 mg tablet Indications: Other systemic lupus erythematosus with other organ involvement (HCC) Take 40mg daily x 5days, then decrease 5mg every 5days until 10mg daily thereafter 120 tablet 1 08/17/2022 Active Start: 06-01-2022 End: 08-17-2022 take 1 tablet by mouth once daily predniSONE (DELTASONE) 10 mg tablet Take 10 mg by mouth once daily. 0 06/01/2022 08/17/2022 Discontinued Start: 05-06-2021 End: 10-24-2021 predniSONE (DELTASONE) 5 mg tablet Indications: Other systemic lupus erythematosus with other organ involvement (HCC) Day 1=6tabs with food, Day 2=5tabs, Day 3=4tabs, Day 4=3tabs, Day 5=2tabs, Day 6=1tab, No NSAIDs on med 21 tablet 1 10/24/2021 Active Comment on above: Day 1=6tabs with jesus d, Day 2=5tabs, Day 3=4tabs, Day 4=3tabs, Day 5=2tabs, Day 6=1tab, No NSAIDs on med Take 10 mg by mouth once daily. Take 40mg daily x 5d ays, then decrease 5mg every 5days until 10mg daily thereafter pregabalin 75 mg oral capsule (20 sources) Start: 2 End: take 1 capsule by mouth three times daily pregabalin (LYRICA) 75 mg capsule Indications: Fibromyalgia take 1 capsule by mouth three times a day 270 capsule 3 03/02/2023 03/01/2024 Active Lyrica Active Comment on above: TAKE 1 CAPSULE BY [facility] 3 TIMES A DAY FOR 30 DAYS TAKE 1 CAPSULE BY [facility] 3 TIMES A DAY take 1 capsule by [facility] three times a day 1000 ml sodium chloride 9 mg/ml injection (1 source) Start: 0.9 % sodium chloride infusion thiamine 100 mg oral tablet (1 source) Start: take 1 tablet by mouth once daily before mealtime thiamine 100 mg tablet Take 1 tablet (100 mg) by mouth once daily in the morning. Take before meals. 0 06/01/2023 Active topiramate 25 mg oral tablet (5 sources) Start: 023 End: take 1 tablet by mouth twice daily topiramate (Topamax) 25 mg tablet Take 1 tablet (25 mg) by mouth twice a day. 0 05/26/2023 Active Comment on above: Take 1 tablet by [facility] two times a day. triamcinolone acetonide 0.25 mg/ml topical lotion (1 source) Corticosteroid Start: 023 triamcinolone acetonide 0.025 % lotion 1 Application. 0 06/23/2022 Active Vitamin D 50 MCG (1999 UT) (4 sources) take 1 tablet by mouth every week Vitamin D 50 MCG (1999 UT) 1 tablet Orally weekly Active Completed/Discontinued Medications Medication Drug Class(es) Dates Sig (Normalized) Sig (Original) acyclovir 400 mg oral tablet (20 sources) Herpesvirus Nucleoside Analog DNA Polymerase Inhibitor, Herpes Simplex Virus Nucleoside Analog DNA Polymerase Inhibitor, Herpes Zoster Virus Nucleoside Analog DNA Polymerase Inhibitor Start: 10-03-2021 End: 04-26-2023 take 1 tablet by mouth once daily acyclovir (ZOVIRAX) 400 mg tablet Take 400 mg by mouth once daily. 0 10/03/2021 04/26/2023 Discontinued (Discontinued by Patient) Comment on above: Take 400 mg by mouth once daily. biotin 10 mg oral tablet (20 sources) End: 04-26-2023 Biotin 10 mg tab 2 0 04/26/2023 Discontinued (Discontinued by Patient) Comment on above: 2 cetirizine hydrochloride 10 mg oral capsule (3 sources) Histamine-1 Receptor Antagonist End: 02-25-2022 Cetirizine (ZYRTEC) 10 mg cap Take by mouth. 0 02/25/2022 Discontinued (Course of therapy completed) take 1 tablet by mouth once ankur y cetirizine (ZYRTEC ALLERGY) 10 MG tablet Take 10 mg by mouth daily 0 Active Comment on above: Take by mouth. 0.5 ml dulaglutide 3 mg/ml auto-injector (20 sources) GLP-1 Receptor Agonist Start: 11-17-19 End: 12-17-19 inject 1.5 mg by subcutaneous injection every week dulaglutide (TRULICITY) 1.5 mg/0.5 mL pen injector Indications: Obesity, Class II, BMI 35-39.9 , Prediabetes Inject 1.5 mg subcutaneously one time a week. 2 mL 0 11/16/2022 Active Start: 10-16-2022 End: 11-15-2022 inject 0.75 mg by subcutaneous injection every week dulaglutide (TRULICITY) 0.75 mg/0.5 mL pen injector Indications: Obesity, Class III, BMI 40-49.9 (morbid obesity) (HCC) , Pre-diabetes Inject 0.75 mg subcutaneously one time a week. 2 mL 0 10/16/2022 Active Start: 09-07-2022 End: 10-07-2022 inject 0.75 mg by subcutaneous injection every week dulaglutide (TRULICITY) 0.75 mg/0.5 mL pen injector Indications: Obesity, Class III, BMI 40-49.9 (morbid obesity) (HCC) , Pre-diabetes Inject 0.75 mg subcutaneously one time a week. 2 mL 0 09/07/2022 10/07/2022 Active Comment on above: Inject 0.75 mg subcu taneously one time a week. Inject 1.5 mg subcut aneously one time a week. DULoxetine 20 mg delayed release oral capsule (20 sources) Serotonin and Norepinephrine Reuptake Inhibitor Start: 10-30-19 End: 12-04-20 23 take 1 capsule by mouth once daily DULoxetine (CYMBALTA) 20 mg capsule Indications: Depression, recurrent (HCC) , Chronic pain syndrome Take 1 capsule by mouth once daily. 30 capsule 2 10/29/2022 04/26/2023 Discontinued (Course of therapy completed) Start: 03-09-2022 End: 06-07-2022 take 1 capsule by mouth once daily DULoxetine (CYMBALTA) 20 mg capsule Take 1 capsule by mouth once daily. 30 capsule 2 03/09/2022 Active Comment on above: Take 1 capsule by mo uth once daily. famotidine 20 mg oral tablet (2 sources) Histamine-2 Receptor Antagonist Start: End: take 1 tablet by mouth once daily at bedtime famotidine (PEPCID) 20 mg tablet Take 20 mg by mouth daily at bedtime. 0 07/21/2020 10/24/2021 Discontinued take 1 tablet by mouth twice sara ly famotidine (PEPCID) 20 MG tablet Take 20 mg by mouth 2 times daily 0 Active Comment on above: Take 20 mg by mouth daily at bedtime. hydroxychloroquine sulfate 200 mg oral tablet (20 sources) Antimalarial, Antirheumatic Agent Start: 10-31-19 23 hydrOXYchloroQUINE (PLAQUENIL) 200 mg tablet Indications: CHRISTIAN positive , Other systemic lupus erythematosus with other organ involvement (HCC) TAKE 1 TAB TWICE A DAY WITH FOOD *SUNSCREEN WHILE OUTDOORS/OPHTHAMOLOGY EVERY 6-12 MONTHS WHILE ON* 180 tablet 3 10/30/2022 Active Start: 05-05-2021 End: 10-24-2021 hydrOXYchloroQUINE (PLAQUENI L) 200 mg tablet Indications: CHRISTIAN positive , Other systemic lupus erythematosus with other organ involvement (HCC) Take one tab by mouth twice a day with food. Sunscreen when outdoors. See ophthalmology every 6-12months on med. 180 tablet 3 10/24/2021 Active End: 03-12-2022 hydroxychloroquine sulfate ( HYDROXYCHLOROQUINE ORAL) Hydroxychloroquine Sulfate Active 0 03/12/2022 Discontinued (Duplicate Entry) Hydroxychloroqui ne Sulfate Active Comment on above: Take one tab by mout h twice a day with food. Sunscreen when outdoors. See ophthalmology every 6-12months on med. Hydroxychloroquine S ulfate Active TAKE 1 TAB TWICE A D AY WITH FOOD *SUNSCREEN WHILE OUTDOORS/OPHTHAMOLOGY EVERY 6-12 MONTHS WHILE ON* omeprazole 40 mg delayed release oral capsule (3 sources) Proton Pump Inhibitor Start: End: take 1 capsule by mouth twice daily omeprazole (PRILOSEC) 40 mg capsule Indications: Gastroesophageal reflux disease, unspecified whether esophagitis present Take 1 capsule by mouth twice daily. 30 capsule 2 08/09/2020 02/25/2022 Discontinued (Course of therapy completed) take 2 capsules by mouth once da jennifer omeprazole (PRILOSEC) 20 MG delayed release capsule Take 40 mg by mouth daily 0 Active Comment on above: Take 1 capsule by mo [facility] twice daily. VIT/IRON FUMARATE/FA ( VITAMIN ORAL) (2 sources) End: 02-25-2022 take 1 tablet by mouth once daily VIT/IRON FUMARATE/FA ( VITAMIN ORAL) Take 1 tablet by mouth once daily. 0 02/25/2022 Discontinued (Course of therapy completed) take 1 tablet by mouth once ankur y VIT/IRON FUMARATE/FA ( VITAMIN ORAL) Take 1 tablet by mouth once daily. 0 Active Comment on above: [facility]. simvastatin 20 mg oral tablet (20 sources) HMG-CoA Reductase Inhibitor Start: 03-10-2022 End: 04-26-2023 simvastatin (ZOCOR) 20 mg tablet Problems Active Problems Problem Classification Problem Date Documented Da te Episodic/Chronic Anxiety disorders (1 source) Anxiety; Translations: [Anxiety disorder, unspecified] Onset: 06-09-2023 06-09-2023 Chronic Cardiac dysrhythmias (4 sources) Postural orthostatic tachycardia syndrome ; Translations: [POTS (postural orthostatic tachycardia syndrome)] Onset: 06-09-2023 Chronic Cardiac dysrhythmias (4 sources) Tachycardia, unspecified; Translations: [Tachycardia] Onset: 10-15-2021 Resolved: 11-26-2021 Episodic Deficiency and other anemia (2 sources) Anemia of chronic disease; Translations: [Anemia in other chronic diseases classified elsewhere] Chronic Diabetes mellitus without complication (8 sources) Increased glucose level; Translations: [Other abnormal glucose] Onset: 03-09-2022 Episodic Disorders of lipid metabolism (20 sources) Hyperlipidemia; Translations: [Hyperlipidemia, unspecified] Onset: 05-31-2014 05-31-2014 Chronic Essential hypertension (5 sources) Essential hypertension; Translations: [Essential (primary) hypertension] Onset: 06-09-2023 06-09-2023 Chronic Fever of unknown origin (1 source) Pyrexia of unknown origin; Translations: [Fever, unspecified] 04-26-2023 Episodic Malaise and fatigue (7 sources) Malaise and fatigue; Translations: [Chronic fatigue, unspecified] Chronic Menstrual disorders (13 sources) Excessive and frequent menstruation with irregular cycle; Translations: [Menometrorrhagia] Onset: 09-24-2022 Chronic Mood disorders (20 sources) Recurrent depression; Translations: [Major depressive disorder, recurrent, unspecified] Onset: 06-09-2023 06-18-2014 Chronic Nutritional deficiencies (20 sources) Vitamin D deficiency; Translations: [Vitamin D deficiency, unspecified] Onset: 03-06-2021 Chronic Osteoarthritis (20 sources) Degenerative joint disease involving multiple joints; 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] Onset: 03-05-2021 Chronic Osteoporosis (17 sources) 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; Translations: [Other osteoporosis without current pathological fracture] Onset: 02-04-2023 02-04-2023 Chronic Other aftercare (3 sources) Drug therapy status; Translations: [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 buttermaker 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] Episodic Other aftercare (1 source) Polypharmacy ; Translations: [Other buttermaker (current) drug therapy] Episodic Other circulatory disease (17 sources) Raynaud's disease; Translations: [Raynaud's syndrome without gangrene] Onset: 02-04-2023 02-04-2023 Chronic Other connective tissue disease (1 source) Pain in left foot; Translations: [Pain in left foot] Onset: 09-14-2018 Episodic Other connective tissue disease (1 source) Pain in right foot; Translations: [Pain in right foot] Onset: 09-14-2018 Episodic Other inflammatory condition of skin (20 sources) Discoid lupus erythematosus; 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] Onset: 02-14-2022 03-12-2022 Chronic Other inflammatory condition of skin (3 sources) Discoid lupus erythematosus; Translations: [DISCOID LUPUS ERYTHEMATOSUS] Onset: 02-18-2022 Chronic Other injuries and conditions due to external causes (1 source) Delayed healing of wound; Translations: [Other injury of unspecified body region, subsequent encounter] Episodic Other lower respiratory disease (2 sources) Snoring; Translations: [Snoring] Episodic Other nervous system disorders (20 sources) Chronic pain syndrome; Translations: [Chronic pain syndrome] 06-18-2014 Chronic Other nervous system disorders (2 sources) Chronic pain; Translations: [Other chronic pain] 04-26-2023 Chronic Other nervous system disorders (2 sources) Disorder of autonomic nervous system; Translations: [Disorder of the autonomic nervous system, unspecified] Onset: 06-01-2023 06-09-2023 Chronic Other nervous system disorders (2 sources) Disorder of the autonomic nervous system, unspecified; Translations: [Disorder of the autonomic nervous system, unspecified] Onset: 06-09-2023 Chronic Other nervous system disorders (1 source) Other chronic pain; Translations: [Other chronic pain] Onset: 05-26-2023 Chronic Other non-traumatic joint disorders (20 sources) Hip pain; Translations: [Pain in unspecified hip] 06-18-2014 Episodic Other nutritional; endocrine; and metabolic disorders (20 sources) Obesity; Translations: [Obesity, unspecified] 02-25-2015 Chronic Other nutritional; endocrine; and metabolic disorders (20 sources) Obese class II; Translations: [Obesity, unspecified] Onset: 03-09-2022 03-09-2022 Chronic Other nutritional; endocrine; and metabolic disorders (20 sources) Body mass index 40+ - severely obese; Translations: [Morbid (severe) obesity due to excess calories] Onset: 09-07-2022 Chronic Other nutritional; endocrine; and metabolic disorders (1 source) Insulin resistance; Translations: [Insulin resistance, unspecified] 03-10-2023 Chronic Other nutritional; endocrine; and metabolic disorders (1 source) Morbid (severe) obesity due to excess calories; Translations: [Obesity, Class III, BMI 40-49.9 (morbid obesity) (HCC)] Onset: 09-07-2022 Chronic Ovarian cyst (1 source) Unspecified ovarian cyst, left side; Translations: [UNSPECIFIED OVARIAN CYST LEFT SIDE] Onset: 09-30-2022 Episodic Residual codes; unclassified (20 sources) Obstructive sleep apnea syndrome; Translations: [Obstructive sleep apnea (adult) (pediatric)] Onset: 05-20-2022 Chronic Residual codes; unclassified (2 sources) Obstructive sleep apnea (adult) (pediatric); Translations: [Obstructive sleep apnea (adult) (pediatric)] Onset: 06-09-2023 Chronic Residual codes; unclassified (1 source) Family history of hereditary disease; Translations: [Family history of other specified conditions] Episodic Residual codes; unclassified (1 source) Family history of malignant neoplasm of breast; Translations: [FAMILY HX MALIG NEOPLASM OF BREAST] Onset: 09-06-2022 Episodic Residual codes; unclassified (1 source) Family history of malignant neoplasm of digestive organs; Translations: [FAM HX MALIG NEOPLASM DIGESTIV ORGN] Onset: 09-06-2022 Episodic Spondylosis; intervertebral disc disorders; other back problems (20 sources) Bilateral inflammation of sacroiliac joint; Translations: [Sacroiliitis, not elsewhere classified] Onset: 09-13-2015 09-13-2015 Chronic Substance-related disorders (20 sources) Tobacco user; Translations: [Nicotine dependence, unspecified, uncomplicated] 06-18-2014 Chronic Systemic lupus erythematosus and connective tissue disorders (20 sources) Systemic lupus erythematosus; Translations: [Other organ or system involvement in systemic lupus erythematosus] Onset: 10-24-2021 Chronic Unclassified (1 source) R07.81 - Pleurodynia; Translations: [R07.81 - Pleurodynia] Onset: 09-17-2018 Unclassified (1 source) Established Patient Follow-Up Onset: 04-26-2023 Past or Other Problems Problem Classification Problem Date Documented Date Episodic/Chronic Coma; stupor; and brain damage (20 sources) Daytime somnolence; Translations: [Somnolence] Onset: 05-20-2022 Episodic Deficiency and other anemia (20 sources) Megaloblastic anemia due to vitamin B>12< deficiency; Translations: [Other megaloblastic anemias, not elsewhere classified] Onset: 03-04-2022 03-04-2022 Episodic Deficiency and other anemia (1 source) Anemia, unspecified; Translations: [ANEMIA UNSPECIFIED] Onset: 03-11-2022 Episodic Deficiency and other anemia (10 sources) Anemia; Translations: [Anemia, unspecified] Onset: 03-11-2022 03-10-2023 Episodic E Codes: Fall (1 source) Fall on same level from slipping, tripping and stumbling without subsequent striking against object, initial encounter; Translations: [FALL SAME LVL SLIP NO STRK OBJ INIT] Onset: 03-23-2022 Episodic Immunizations and screening for infectious disease (20 sources) Anti-nuclear factor positive; Translations: [Other specified abnormal immunological findings in serum] Onset: 03-05-2021 Episodic Joint disorders and dislocations; trauma-related (1 source) Unspecified subluxation of right patella, initial encounter; Translations: [UNS SUBLUXATION RT PATELLA INITIAL] Onset: 03-23-2022 Episodic Lymphadenitis (20 sources) Lymphadenopathy; Translations: [Enlarged lymph nodes, unspecified] Onset: 03-05-2021 03-05-2021 Episodic Nutritional deficiencies (20 sources) Cobalamin deficiency; Translations: [Deficiency of other specified B group vitamins] Onset: 05-31-2014 Episodic Other aftercare (20 sources) Drug therapy finding; Translations: [Other buttermaker (current) drug therapy] Onset: 03-05-2021 Episodic Other aftercare (20 sources) H/O: high risk medication; Translations: [Other buttermaker (current) drug therapy] Onset: 06-15-2022 06-15-2022 Episodic Other aftercare (1 source) Other senior living (current) drug therapy; Translations: [OTH DETENTION 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 THERAPY] Onset: 03-23-2022 Episodic Other aftercare (17 sources) Long-term 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 systemic steroid; Translations: [detention (current) use of 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] Onset: 02-04-2023 02-04-2023 Episodic Other connective tissue disease (20 sources) Pain in toe; Translations: [Pain in right toe(s)] Onset: 03-05-2021 Episodic Other connective tissue disease (20 sources) Fibromyalgia; Translations: [Fibromyalgia] Onset: 10-24-2021 Episodic Other connective tissue disease (20 sources) Paraparesis; Translations: [Other symptoms and signs involving the musculoskeletal system] Onset: 03-05-2021 03-05-2021 Episodic Other connective tissue disease (1 source) Other symptoms and signs involving the musculoskeletal system; Translations: [Other musculoskeletal symptoms referable to limbs] Onset: 03-05-2021 03-05-2021 Episodic Other hematologic conditions (20 sources) ESR raised; Translations: [Elevated erythrocyte sedimentation rate] Onset: 03-05-2021 Episodic Other hematologic conditions (9 sources) Elevated erythrocyte sedimentation rate; Translations: [ELEVATED ERYTHROCYTE SED RATE] Onset: 03-05-2021 Resolved: 11-26-2021 Episodic Other injuries and conditions due to external causes (3 sources) Unspecified injury of right lower leg, initial encounter; Translations: [UNS INJURY RT LOWER LEG INITIAL ENC] Onset: 03-21-2022 Episodic Other nervous system disorders (20 sources) Ataxia; Translations: [Ataxia, unspecified] Onset: 05-31-2014 05-31-2014 Episodic Other non-traumatic joint disorders (5 sources) Pain in right knee; Translations: [PAIN IN RIGHT KNEE] Onset: 03-23-2022 Episodic Other non-traumatic joint disorders (1 source) Effusion, right knee; Translations: [EFFUSION RIGHT KNEE] Onset: 03-23-2022 Episodic Other non-traumatic joint disorders (17 sources) Bilateral wrist pain; Translations: [Pain in right wrist] Onset: 02-04-2023 02-04-2023 Episodic Other screening for suspected conditions (not mental disorders or infectious disease) (18 sources) Elevated C-reactive protein; Translations: [Elevated C-reactive protein (CRP)] Onset: 03-11-2022 Episodic Other skin disorders (20 sources) Eruption; Translations: [Rash and other nonspecific skin eruption] Onset: 03-05-2021 Episodic Other skin disorders (20 sources) Loss of hair; Translations: [Nonscarring hair loss, unspecified] Onset: 03-05-2021 Episodic Residual codes; unclassified (20 sources) FH: Crohn's disease; Translations: [Family history of other diseases of the digestive system] Onset: 03-05-2021 Episodic Residual codes; unclassified (3 sources) Flushing; Translations: [FLUSHING] Onset: 10-15-2021 Resolved: 11-26-2021 Episodic Spondylosis; intervertebral disc disorders; other back problems (20 sources) Chronic low back pain; Translations: [Lumbago with sciatica, left side] Onset: 05-31-2014 Episodic Viral infection (8 sources) Cytomegaloviral disease, unspecified; Translations: [CYTOMEGALOVIRAL DISEASE UNSPECIFIED] Onset: 09-11-2021 Resolved: 11-26-2021 Episodic Results Test Name Value Interpretation Reference Range Facility CNPDede 06-12-2023 CNPN Normal [facility] 25(OH)D3 Ruthannl-Salazar 2023 25-hydroxyvitamin D3 [Mass/Vol] 17.3 ng/mL Low 31.0-80.0 [facility] Comment on above: Order Comment: Speci men Type: BLOOD SPECIMENOrdering Facility: [facility] Address: [address] [place] [address] Result Comment: Clas sification of 25 [place] Vitamin D status:Deficiency/Insufficiency: < or = 30 ng/ml.Sufficiency/Optimal Levels: 31-80 ng/mLToxicity: > 100 ng/mL.Test performed by chemiluminescent immunoassay. Performed By: #### 1 989-3 ####[facility] LABCLIA [id number] [address] [place] OF [facility] CBC panel Auto (Bld)on 06-10 Erythrocyte distribution width (RBC) [Ratio] 14.5 % Normal 11.5-15.0 [facility] Comment on above: Order Comment: Speci men Type: BLOOD SPECIMENOrdering Facility: [facility] Address: [address] [place] [address] Performed By: #### 5 8410-2 ####[facility] LABCLIA [id number] [place] [address] Hematocrit (Bld) [Volume fraction] 43.1 % Normal 36.0-46.0 [facility] Comment on above: Order Comment: Speci men Type: BLOOD SPECIMENOrdering Facility: [facility] Address: [address] [place] [address] Performed By: #### 5 8410-2 ####[facility] LABCLIA [id number] [place] [address] Hemoglobin (Bld) [Mass/Vol] 13.9 g/dL Normal 11.5-15.5 [facility] Comment on above: Order Comment: Speci men Type: BLOOD SPECIMENOrdering Facility: [facility] Address: [address] [place] [address] Performed By: #### 5 8410-2 ####[facility] LABCLIA [id number] [place] [address] MCH (RBC) [Entitic mass] 30.6 pg Normal 26.0-34.0 [facility] Comment on above: Order Comment: Speci men Type: BLOOD SPECIMENOrdering Facility: [facility] Address: [address] [place] [address] Performed By: #### 5 8410-2 ####[facility] LABCLIA [id number] [place] [address] MCHC (RBC) [Mass/Vol] 32.3 g/dL Normal 30.5-36.0 [facility] Comment on above: Order Comment: Speci men Type: BLOOD SPECIMENOrdering Facility: [facility] Address: [address] [place] [address] Performed By: #### 5 8410-2 ####[facility] LABIA [id number] [place] [address] MCV (RBC) [Entitic vol] 94.9 fL Normal 80.0-100.0 [facility] Comment on above: Order Comment: Speci men Type: BLOOD SPECIMENOrdering Facility: [facility] Address: [address] [place] [address] Performed By: #### 5 8410-2 ####[facility] LABCLIA [id number] [place] [address] Nucleated RBC (Bld) [#/Vol] 10*3/uL Normal <0.01 [facility] Comment on above: Order Comment: Speci men Type: BLOOD SPECIMENOrdering Facility: [facility] Address: [address] [place] [address] Performed By: #### 5 8410-2 ####[facility] LABCLIA [id number] [place] [address] Platelet mean volume (Bld) [Entitic vol] 9.5 fL Normal 9.0-12.7 [facility] Comment on above: Order Comment: Speci men Type: BLOOD SPECIMENOrdering Facility: [facility] Address: [address] [place] [address] Performed By: #### 5 8410-2 ####[facility] LABCLIA [id number] [place] [address] Platelets (Bld) [#/Vol] 320 10*3/uL Normal 150-400 [facility] Comment on above: Order Comment: Speci men Type: BLOOD SPECIMENOrdering Facility: [facility] Address: [address] [place] [address] Performed By: #### 5 8410-2 ####[facility] LABIA [id number] [place] [address] RBC (Bld) [#/Vol] 4.54 10*6/uL Normal 3.90-5.20 [facility] Comment on above: Order Comment: Speci men Type: BLOOD SPECIMENOrdering Facility: [facility] Address: [address] [place] [address] Performed By: #### 5 8410-2 ####[facility] LABIA [id number] [place] [address] WBC (Bld) [#/Vol] 15.15 10*3/uL High 3.70-11.00 [facility] Comment on above: Order Comment: Speci men Type: BLOOD SPECIMENOrdering Facility: [facility] Address: [address] [place] [address] Performed By: #### 5 8410-2 ####[facility] LABIA [id number] [place] [address] CNNURSEon 06-10-2023 CNNURSE Normal [facility] CNOVSPon 06-10-2023 CNOVSP Normal [facility] CRP SerPl-mCncon 06-10-2023 CRP [Mass/Vol] mg/L Normal <0.9 [facility] Comment on above: Order Comment: Speci men Type: BLOOD SPECIMENOrdering Facility: [facility] Address: [address] [place] [address] Performed By: #### 1 988-5 ####[facility] LABCLIA [id number] [facility] [place] [address] [facility] Comprehensive metabolic 2000 panelon 06-10-2023 Albumin [Mass/Vol] 4.1 g/dL Normal 3.9-4.9 [facility] Comment on above: Order Comment: Speci men Type: BLOOD SPECIMENOrdering Facility: [facility] Address: [address] [place] [address] Performed By: #### 2 4323-8 ####[facility] LABCLIA [id number] [place] [address] ALP [Catalytic activity/Vol] 72 U/L Normal 34-123 [facility] Comment on above: Order Comment: Speci men Type: BLOOD SPECIMENOrdering Facility: [facility] Address: [address] [place] [address] Performed By: #### 2 4323-8 ####[facility] LABCLIA [id number] [place] [address] ALT [Catalytic activity/Vol] 22 U/L Normal 7-38 [facility] Comment on above: Order Comment: Speci men Type: BLOOD SPECIMENOrdering Facility: [facility] Address: [address] [place] [address] Performed By: #### 2 4323-8 ####[facility] LABCLIA [id number] [place] [address] Anion gap [Moles/Vol] 10 mmol/L Normal 9-18 [facility] Comment on above: Order Comment: Speci men Type: BLOOD SPECIMENOrdering Facility: [facility] Address: [address] [place] [address] Performed By: #### 2 4323-8 ####[facility] LABCLIA [id number] [place] [address] AST [Catalytic activity/Vol] 9 U/L Low 13-35 [facility] Comment on above: Order Comment: Speci men Type: BLOOD SPECIMENOrdering Facility: [facility] Address: [address] [place] [address] Performed By: #### 2 4323-8 ####[facility] LABCLIA [id number] [place] [address] Bilirubin [Mass/Vol] 0.2 mg/dL Normal 0.2-1.3 [facility] Comment on above: Order Comment: Speci men Type: BLOOD SPECIMENOrdering Facility: [facility] Address: [address] [place] [address] Performed By: #### 2 4323-8 ####[facility] LABCLIA [id number] [place] [address] Calcium [Mass/Vol] 9.8 mg/dL Normal 8.5-10.2 [facility] Comment on above: Order Comment: Speci men Type: BLOOD SPECIMENOrdering Facility: [facility] Address: [address] [place] [address] Performed By: #### 2 4323-8 ####[facility] LABCLIA [id number] [place] [address] Chloride [Moles/Vol] 107 mmol/L High 97-105 [facility] Comment on above: Order Comment: Speci men Type: BLOOD SPECIMENOrdering Facility: [facility] Address: [address] [place] [address] Performed By: #### 2 4323-8 ####[facility] LABCLIA [id number] [place] [address] CO2 [Moles/Vol] 24 mmol/L Normal 22-30 [facility] Comment on above: Order Comment: Speci men Type: BLOOD SPECIMENOrdering Facility: [facility] Address: [address] [place] [address] Performed By: #### 2 4323-8 ####[facility] LABCLIA [id number] [place] [address] Creatinine [Mass/Vol] 0.80 mg/dL Normal 0.58-0.96 [facility] Comment on above: Order Comment: Speci men Type: BLOOD SPECIMENOrdering Facility: [facility] Address: [address] [place] [address] Performed By: #### 2 4323-8 ####[facility] LABCLIA [id number] [place] [address] Creatinine and Glomerular filtration rate.predicted panel (S/P/Bld) 94 mL/min/1.73m??? Normal >=60 [facility] Comment on above: Order Comment: Speci men Type: BLOOD SPECIMENOrdering Facility: [facility] Address: [address] [place] [address] Result Comment: Erin mated Glomerular Filtration Rate (eGFR) is calculated using the 2020 CKD-EPI creatinine equation. This equation utilizes serum creatinine, sex, and age as parameters. The creatinine assay has traceable calibration to isotope dilution-mass spectrometry. Refer to KDIGO guidelines for clinical interpretation. In patients with unstable renal function, e.g. those with acute kidney injury, the eGFR may not accurately reflect actual GFR. Performed By: #### 2 4323-8 ####[facility] LABCLIA [id number] [place] [address] Glucose [Mass/Vol] 98 mg/dL Normal 74-99 [facility] Comment on above: Order Comment: Speci men Type: BLOOD SPECIMENOrdering Facility: [facility] Address: [address] [place] [address] Result Comment: The [place] Diabetes Association (ADA) provides guidance for cutoff values for fasting glucose and random glucose. The ADA defines fasting as no caloric intake for at least 8 hours. Fasting plasma glucose results between 100 to 125 mg/dL indicate increased risk for diabetes (prediabetes).Fasting plasma glucose results greater than or equal to 126 mg/dL meet the criteria for diagnosis of diabetes. In the absence of unequivocal hyperglycemia, results should be confirmed by repeat testing. In a patient with classic symptoms of hyperglycemia or hyperglycemic crisis, random plasma glucose results greater than or equal to 200 mg/dL meet the criteria for diagnosis of diabetes.Reference: Standards of Medical Care in Diabetes 2016, [place] Diabetes Association. Diabetes Care. 2016.39(Suppl 1). Performed By: #### 2 4323-8 ####[facility] LABCLIA [id number] [place] [address] Potassium [Moles/Vol] 3.6 mmol/L Low 3.7-5.1 [facility] Comment on above: Order Comment: Speci men Type: BLOOD SPECIMENOrdering Facility: [facility] Address: [address] [place] [address] Performed By: #### 2 4323-8 ####[facility] LABCLIA [id number] [place] [address] Protein [Mass/Vol] 7.0 g/dL Normal 6.3-8.0 [facility] Comment on above: Order Comment: Speci men Type: BLOOD SPECIMENOrdering Facility: [facility] Address: [address] [place] [address] Performed By: #### 2 4323-8 ####[facility] LABCLIA [id number] [place] [address] Sodium [Moles/Vol] 141 mmol/L Normal 136-144 [facility] Comment on above: Order Comment: Speci men Type: BLOOD SPECIMENOrdering Facility: [facility] Address: [address] [place] [address] Performed By: #### 2 4323-8 ####[facility] LABCLIA [id number] [place] [address] Urea nitrogen [Mass/Vol] 17 mg/dL Normal 7-21 [facility] Comment on above: Order Comment: Speci men Type: BLOOD SPECIMENOrdering Facility: [facility] Address: [address] [place] [address] Performed By: #### 2 4323-8 ####[facility] LABCLIA [id number] [place] [address] ESR Westergren method (Bld) [Velocity]on 06-10-2023 ESR (Bld) [Velocity] 28 mm/h High 0-20 [facility] Comment on above: Order Comment: Speci men Type: BLOOD SPECIMENOrdering Facility: [facility] Address: [address] [place] [address] Performed By: #### 4 537-7 ####[facility] LABCLIA [id number] [facility] [id number] [place] [address] [place] CBC W Auto Differential pane l (Bld)on 06-03-2023 Basophils (Bld) [#/Vol] 0.05 10*3/uL Normal <0.11 [facility] Comment on above: Order Comment: Speci men Type: BLOOD SPECIMENOrdering Facility: [facility] Address: [address] [place] [address] Performed By: #### 5 7021-8 ####[facility] LABIA [id number] [place] [address] Basophils/100 WBC (Bld) 0.4 % Normal [facility] Comment on above: Order Comment: Speci men Type: BLOOD SPECIMENOrdering Facility: [facility] Address: [address] [place] [address] Performed By: #### 5 7021-8 ####[facility] LABCLIA [id number] [place] [address] Differential cell count method Nom (Bld) Auto Normal [facility] Comment on above: Order Comment: Speci men Type: BLOOD SPECIMENOrdering Facility: [facility] Address: [address] [place] [address] Performed By: #### 5 7021-8 ####[facility] LABCLIA [id number] [place] [address] Eosinophils (Bld) [#/Vol] 0.14 10*3/uL Normal <0.46 [facility] Comment on above: Order Comment: Speci men Type: BLOOD SPECIMENOrdering Facility: [facility] Address: [address] [place] [address] Performed By: #### 5 7021-8 ####[facility] LABCLIA [id number] [place] [address] Eosinophils/100 WBC (Bld) 1.1 % Normal [facility] Comment on above: Order Comment: Speci men Type: BLOOD SPECIMENOrdering Facility: [facility] Address: [address] [place] [address] Performed By: #### 5 7021-8 ####[facility] LABCLIA [id number] [place] [address] Erythrocyte distribution width (RBC) [Ratio] 14.5 % Normal 11.5-15.0 [facility] Comment on above: Order Comment: Speci men Type: BLOOD SPECIMENOrdering Facility: [facility] Address: [address] [place] [address] Performed By: #### 5 7021-8 ####[facility] LABCLIA [id number] [place] [address] Hematocrit (Bld) [Volume fraction] 40.5 % Normal 36.0-46.0 [facility] Comment on above: Order Comment: Speci men Type: BLOOD SPECIMENOrdering Facility: [facility] Address: [address] [place] [address] Performed By: #### 5 7021-8 ####[facility] LABCLIA [id number] [place] [address] Hemoglobin (Bld) [Mass/Vol] 13.1 g/dL Normal 11.5-15.5 [facility] Comment on above: Order Comment: Speci men Type: BLOOD SPECIMENOrdering Facility: [facility] Address: [address] [place] [address] Performed By: #### 5 7021-8 ####[facility] LABCLIA [id number] [place] [address] Immature granulocytes (Bld) [#/Vol] 0.20 10*3/uL High <0.10 [facility] Comment on above: Order Comment: Speci men Type: BLOOD SPECIMENOrdering Facility: [facility] Address: [address] [place] [address] Performed By: #### 5 7021-8 ####[facility] LABCLIA [id number] [place] [address] Immature granulocytes/100 WBC (Bld) 1.6 % Normal [facility] Comment on above: Order Comment: Speci men Type: BLOOD SPECIMENOrdering Facility: [facility] Address: [address] [place] [address] Performed By: #### 5 7021-8 ####[facility] LABCLIA [id number] [place] [address] Lymphocytes (Bld) [#/Vol] 4.13 10*3/uL High 1.00-4.00 [facility] Comment on above: Order Comment: Speci men Type: BLOOD SPECIMENOrdering Facility: [facility] Address: [address] [place] [address] Performed By: #### 5 7021-8 ####[facility] LABCLIA [id number] [place] [address] Lymphocytes/100 WBC (Bld) 32.1 % Normal [facility] Comment on above: Order Comment: Speci men Type: BLOOD SPECIMENOrdering Facility: [facility] Address: [address] [place] [address] Performed By: #### 5 7021-8 ####[facility] LABCLIA [id number] [place] [address] MCH (RBC) [Entitic mass] 30.8 pg Normal 26.0-34.0 [facility] Comment on above: Order Comment: Speci men Type: BLOOD SPECIMENOrdering Facility: [facility] Address: [address] [place] [address] Performed By: #### 5 7021-8 ####[facility] LABCLIA [id number] [place] [address] MCHC (RBC) [Mass/Vol] 32.3 g/dL Normal 30.5-36.0 [facility] Comment on above: Order Comment: Speci men Type: BLOOD SPECIMENOrdering Facility: [facility] Address: [address] [place] [address] Performed By: #### 5 7021-8 ####[facility] LABCLIA [id number] [place] [address] MCV (RBC) [Entitic vol] 95.1 fL Normal 80.0-100.0 [facility] Comment on above: Order Comment: Speci men Type: BLOOD SPECIMENOrdering Facility: [facility] Address: [address] [place] [address] Performed By: #### 5 7021-8 ####[facility] LABCLIA [id number] [place] [address] Monocytes (Bld) [#/Vol] 0.79 10*3/uL Normal <0.87 [facility] Comment on above: Order Comment: Speci men Type: BLOOD SPECIMENOrdering Facility: [facility] Address: [address] [place] [address] Performed By: #### 5 7021-8 ####[facility] LABCLIA [id number] [place] [address] Monocytes/100 WBC (Bld) 6.1 % Normal [facility] Comment on above: Order Comment: Speci men Type: BLOOD SPECIMENOrdering Facility: [facility] Address: [address] [place] [address] Performed By: #### 5 7021-8 ####[facility] LABCLIA [id number] [place] [address] Neutrophils (Bld) [#/Vol] 7.56 10*3/uL High 1.45-7.50 [facility] Comment on above: Order Comment: Speci men Type: BLOOD SPECIMENOrdering Facility: [facility] Address: [address] [place] [address] Performed By: #### 5 7021-8 ####[facility] LABCLIA [id number] [place] [address] Neutrophils/100 WBC (Bld) 58.7 % Normal [facility] Comment on above: Order Comment: Speci men Type: BLOOD SPECIMENOrdering Facility: [facility] Address: [address] [place] [address] Performed By: #### 5 7021-8 ####[facility] LABCLIA [id number] [place] [address] Nucleated RBC (Bld) [#/Vol] 10*3/uL Normal <0.01 [facility] Comment on above: Order Comment: Speci men Type: BLOOD SPECIMENOrdering Facility: [facility] Address: [address] [place] [address] Performed By: #### 5 7021-8 ####[facility] LABCLIA [id number] [place] [address] Nucleated RBC/100 WBC (Bld) [Ratio] 0.0 /100 WBC Normal [facility] Comment on above: Order Comment: Speci men Type: BLOOD SPECIMENOrdering Facility: [facility] Address: [address] [place] [address] Performed By: #### 5 7021-8 ####[facility] LABCLIA [id number] [place] [address] Platelet mean volume (Bld) [Entitic vol] 9.7 fL Normal 9.0-12.7 [facility] Comment on above: Order Comment: Speci men Type: BLOOD SPECIMENOrdering Facility: [facility] Address: [address] [place] [address] Performed By: #### 5 7021-8 ####[facility] LABCLIA [id number] [place] [address] Platelets (Bld) [#/Vol] 261 10*3/uL Normal 150-400 [facility] Comment on above: Order Comment: Speci men Type: BLOOD SPECIMENOrdering Facility: [facility] Address: [address] [place] [address] Performed By: #### 5 7021-8 ####[facility] LABCLIA [id number] [place] [address] RBC (Bld) [#/Vol] 4.26 10*6/uL Normal 3.90-5.20 [facility] Comment on above: Order Comment: Speci men Type: BLOOD SPECIMENOrdering Facility: [facility] Address: [address] [place] [address] Performed By: #### 5 7021-8 ####[facility] LABCLIA [id number] [place] [address] WBC (Bld) [#/Vol] 12.87 10*3/uL High 3.70-11.00 [facility] Comment on above: Order Comment: Speci men Type: BLOOD SPECIMENOrdering Facility: [facility] Address: [address] [place] [address] Performed By: #### 5 7021-8 ####[facility] LABCLIA [id number] [place] [address] Comprehensive metabolic 2000 panelon 06-03-2023 Albumin [Mass/Vol] 4.0 g/dL Normal 3.9-4.9 [facility] Comment on above: Order Comment: Speci men Type: BLOOD SPECIMENOrdering Facility: [facility] Address: [address] [place] [address] Performed By: #### 2 4323-8 ####[facility] LABCLIA [id number] [place] [address] ALP [Catalytic activity/Vol] 73 U/L Normal 34-123 [facility] Comment on above: Order Comment: Speci men Type: BLOOD SPECIMENOrdering Facility: [facility] Address: [address] [place] [address] Performed By: #### 2 4323-8 ####[facility] LABCLIA [id number] [place] [address] ALT [Catalytic activity/Vol] 21 U/L Normal 7-38 [facility] Comment on above: Order Comment: Speci men Type: BLOOD SPECIMENOrdering Facility: [facility] Address: [address] [place] [address] Performed By: #### 2 4323-8 ####[facility] LABCLIA [id number] [place] [address] Anion gap [Moles/Vol] 10 mmol/L Normal 9-18 [facility] Comment on above: Order Comment: Speci men Type: BLOOD SPECIMENOrdering Facility: [facility] Address: [address] [place] [address] Performed By: #### 2 4323-8 ####[facility] LABCLIA [id number] [place] [address] AST [Catalytic activity/Vol] 10 U/L Low 13-35 [facility] Comment on above: Order Comment: Speci men Type: BLOOD SPECIMENOrdering Facility: [facility] Address: [address] [place] [address] Performed By: #### 2 4323-8 ####[facility] LABCLIA [id number] [place] [address] Bilirubin [Mass/Vol] 0.2 mg/dL Normal 0.2-1.3 [facility] Comment on above: Order Comment: Speci men Type: BLOOD SPECIMENOrdering Facility: [facility] Address: [address] [place] [address] Performed By: #### 2 4323-8 ####[facility] LABCLIA [id number] [place] [address] Calcium [Mass/Vol] 9.6 mg/dL Normal 8.5-10.2 [facility] Comment on above: Order Comment: Speci men Type: BLOOD SPECIMENOrdering Facility: [facility] Address: [address] [place] [address] Performed By: #### 2 4323-8 ####[facility] LABCLIA [id number] [place] [address] Chloride [Moles/Vol] 108 mmol/L High 97-105 [facility] Comment on above: Order Comment: Speci men Type: BLOOD SPECIMENOrdering Facility: [facility] Address: [address] [place] [address] Performed By: #### 2 4323-8 ####[facility] LABCLIA [id number] [place] [address] CO2 [Moles/Vol] 24 mmol/L Normal 22-30 [facility] Comment on above: Order Comment: Speci men Type: BLOOD SPECIMENOrdering Facility: [facility] Address: [address] [place] [address] Performed By: #### 2 4323-8 ####[facility] LABCLIA [id number] [place] [address] Creatinine [Mass/Vol] 0.70 mg/dL Normal 0.58-0.96 [facility] Comment on above: Order Comment: Speci men Type: BLOOD SPECIMENOrdering Facility: [facility] Address: [address] [place] [address] Performed By: #### 2 4323-8 ####[facility] LABIA [id number] [place] [address] Creatinine and Glomerular filtration rate.predicted panel (S/P/Bld) 111 mL/min/1.73m??? Normal >=60 [facility] Comment on above: Order Comment: Speci men Type: BLOOD SPECIMENOrdering Facility: [facility] Address: [address] [place] [address] Result Comment: Erin mated Glomerular Filtration Rate (eGFR) is calculated using the 2020 CKD-EPI creatinine equation. This equation utilizes serum creatinine, sex, and age as parameters. The creatinine assay has traceable calibration to isotope dilution-mass spectrometry. Refer to KDIGO guidelines for clinical interpretation. In patients with unstable renal function, e.g. those with acute kidney injury, the eGFR may not accurately reflect actual GFR. Performed By: #### 2 4323-8 ####[facility] LABCLIA [id number] [place] [address] Glucose [Mass/Vol] 106 mg/dL High 74-99 [facility] Comment on above: Order Comment: Speci men Type: BLOOD SPECIMENOrdering Facility: [facility] Address: [address] [place] [address] Result Comment: The [place] Diabetes Association (ADA) provides guidance for cutoff values for fasting glucose and random glucose. The ADA defines fasting as no caloric intake for at least 8 hours. Fasting plasma glucose results between 100 to 125 mg/dL indicate increased risk for diabetes (prediabetes).Fasting plasma glucose results greater than or equal to 126 mg/dL meet the criteria for diagnosis of diabetes. In the absence of unequivocal hyperglycemia, results should be confirmed by repeat testing. In a patient with classic symptoms of hyperglycemia or hyperglycemic crisis, random plasma glucose results greater than or equal to 200 mg/dL meet the criteria for diagnosis of diabetes.Reference: Standards of Medical Care in Diabetes 2016, [place] Diabetes Association. Diabetes Care. 2016.39(Suppl 1). Performed By: #### 2 4323-8 ####[facility] LABCLIA [id number] [place] [address] Potassium [Moles/Vol] 4.0 mmol/L Normal 3.7-5.1 [facility] Comment on above: Order Comment: Speci men Type: BLOOD SPECIMENOrdering Facility: [facility] Address: [address] [place] [address] Performed By: #### 2 4323-8 ####[facility] LABCLIA [id number] [place] [address] Protein [Mass/Vol] 6.8 g/dL Normal 6.3-8.0 [facility] Comment on above: Order Comment: Speci men Type: BLOOD SPECIMENOrdering Facility: [facility] Address: [address] [place] [address] Performed By: #### 2 4323-8 ####[facility] LABCLIA [id number] [place] [address] Sodium [Moles/Vol] 142 mmol/L Normal 136-144 [facility] Comment on above: Order Comment: Speci men Type: BLOOD SPECIMENOrdering Facility: [facility] Address: [address] [place] [address] Performed By: #### 2 4323-8 ####[facility] LABCLIA [id number] [place] [address] Urea nitrogen [Mass/Vol] 12 mg/dL Normal 7-21 [facility] Comment on above: Order Comment: Speci men Type: BLOOD SPECIMENOrdering Facility: [facility] Address: [address] [place] [address] Performed By: #### 2 4323-8 ####[facility] LABCLIA [id number] [place] [address] ESR Westergren method (Bld) [Velocity]on 06-03-2023 ESR (Bld) [Velocity] 35 mm/h High 0-20 [facility] Comment on above: Order Comment: Speci men Type: BLOOD SPECIMENOrdering Facility: [facility] Address: [address] [place] [address] Performed By: #### 4 537-7 ####[facility] LABCLIA [id number] [place] [address] [place] Ferritin SerPl-mCncon 2023 Ferritin [Mass/Vol] 23.4 ng/mL Normal 14.7-205.1 [facility] Comment on above: Order Comment: Speci men Type: BLOOD SPECIMENOrdering Facility: [facility] Address: [address] [place] [id number] Performed By: #### 5 0190-8, 2132-01, 2275-08, 2283-12 ####[facility] LABCLIA [id number] [address] [address] [place] Folate SerPl-ncon 06-03-19 Folate [Mass/Vol] 8.2 ng/mL Normal >4.7 [facility] Comment on above: Order Comment: Speci men Type: BLOOD SPECIMENOrdering Facility: [facility] Address: [address] [place] [address] Performed By: #### 5 0190-8, 2132-01, 2275-08, 2283-12 ####[facility] LABCLIA [id number] [place] [address] [place] Iron and Iron binding capaci panel 06-03-2023 Iron [Mass/Vol] 67 ug/dL Normal 41-186 [facility] Comment on above: Order Comment: Speci men Type: BLOOD SPECIMENOrdering Facility: [facility] Address: [place] [address] Performed By: #### 5 0190-8, 2132-01, 2275-08, 2283-12 ####[facility] LABCLIA [id number] [place] [id number] [place] Iron binding capacity [Mass/Vol] 395 ug/dL High 232-386 [facility] Comment on above: Order Comment: Speci men Type: BLOOD SPECIMENOrdering Facility: [facility] Address: [address] [place] [address] Performed By: #### 5 0190-8, 2132-01, 2275-08, 2283-12 ####[facility] LABCLIA [id number] [place] [id number] [place] Iron/TIBC [Molar ratio] 17.0 % Normal 15.0-57.0 [facility] Comment on above: Order Comment: Speci men Type: BLOOD SPECIMENOrdering Facility: [facility] Address: [place] [address] Performed By: #### 5 0190-8, 2131-9, 6-4, 8 ####[facility] LABCLIA [id number] [address] [place] Vit B12 [facility] Cobalamin (Vitamin B12) [Mass/Vol] 428 pg/mL Normal 232-1245 [facility] Comment on above: Order Comment: Speci men Type: BLOOD SPECIMENOrdering Facility: [facility] Address: [address] [place] [address] Performed By: #### 5 0190-8, 9, 6-4, 8 ####[facility] LABCLIA [id number] [address] [place] CNNURSEon 05-10-2023 CNNURSE Normal [facility] XR CERVICAL SPINE COMPLETE 4 -5 VIEWSon 05-10-2023 XR CERVICAL SPINE COMPLETE 4-5 VIEWS CLINICAL HISTORY: postural headache, neck pain COMPARISON: NONE. FINDINGS: There is no acute fracture or subluxation. There is no loss of vertebral body height. There is preservation of the lordotic curvature of the cervical spine. There is no intervertebral disc space narrowing. The prevertebral tissues are unremarkable. The airway is patent IMPRESSION: There are no acute osseous changes. ELECTRONICALLY SIGNED BY: Alden Thompson MD Normal Not Available MR BRAIN WO CONTRASTon 05-06 MR BRAIN WO CONTRAST EXAMINATION: MR BRA IN WO CONTRAST CLINICAL HISTORY: low pressure headache COMPARISONS: None TECHNIQUE: Multiplanar multisequence images of the brain were obtained without contrast. Diffusion perfusion imaging was obtained. BRAIN MRI FINDINGS: There are no extra-axial collections. There is no evidence of hemorrhage. There are no areas of perfusion diffusion signal abnormality to suggest ischemia. The susceptibility images do not demonstrate evidence of hemosiderin deposition within the brain parenchyma or the leptomeninges. There is preservation of the saini-white matter differentiation. There are no areas of signal abnormality within the brain parenchyma or the posterior fossa to suggest lesion. The sulci and ventricles are within normal limits without evidence of hydrocephalus. The midline structures are intact, the corpus callosum is within normal limits. The region of the pineal gland and the sella turcica are unremarkable. There are no space-occupying lesions in the posterior fossa. The basilar cisterns are patent. The craniocervical junction is unremarkable. The visualized portions of the orbits are within normal limits, the globes are intact. The visualized portions of the paranasal sinuses are within normal limits. The calvarium and soft tissues are unremarkable. IMPRESSION: There are no acute intracranial changes, no evidence of ischemia or hemorrhage. There are no regions of signal abnormality. ELECTRONICALLY SIGNED BY: Alden Thompson MD Normal Not Available CNPNon 04-22-2023 CNPN Normal [facility] CNNURSEon 04-16-2023 CNNURSE Normal [facility] CNOVSPon 04-16-2023 CNOVSP Normal [facility] CBC W Auto Differential pane l (Bld)on 04-09-2023 Basophils (Bld) [#/Vol] 0.05 10*3/uL Normal <0.11 [facility] Comment on above: Order Comment: Speci men Type: BLOOD SPECIMENOrdering Facility: [facility] Address: [address] [place] [address] Performed By: #### 5 7021-8 ####[facility] LABCLIA [id number] [place] [address] Basophils/100 WBC (Bld) 0.5 % Normal [facility] Comment on above: Order Comment: Speci men Type: BLOOD SPECIMENOrdering Facility: [facility] Address: [address] [place] [address] Performed By: #### 5 7021-8 ####[facility] LABCLIA [id number] [place] [address] Differential cell count method Nom (Bld) Auto Normal [facility] Comment on above: Order Comment: Speci men Type: BLOOD SPECIMENOrdering Facility: [facility] Address: [address] [place] [address] Performed By: #### 5 7021-8 ####[facility] LABCLIA [id number] [place] [address] Eosinophils (Bld) [#/Vol] 0.09 10*3/uL Normal <0.46 [facility] Comment on above: Order Comment: Speci men Type: BLOOD SPECIMENOrdering Facility: [facility] Address: [address] [place] [address] Performed By: #### 5 7021-8 ####[facility] LABCLIA [id number] [place] [address] Eosinophils/100 WBC (Bld) 0.9 % Normal [facility] Comment on above: Order Comment: Speci men Type: BLOOD SPECIMENOrdering Facility: [facility] Address: [address] [place] [address] Performed By: #### 5 7021-8 ####[facility] LABCLIA [id number] [place] [address] Erythrocyte distribution width (RBC) [Ratio] 14.8 % Normal 11.5-15.0 [facility] Comment on above: Order Comment: Speci men Type: BLOOD SPECIMENOrdering Facility: [facility] Address: [address] [place] [address] Performed By: #### 5 7021-8 ####[facility] LABCLIA [id number] [place] [address] Hematocrit (Bld) [Volume fraction] 41.1 % Normal 36.0-46.0 [facility] Comment on above: Order Comment: Speci men Type: BLOOD SPECIMENOrdering Facility: [facility] Address: [address] [place] [address] Performed By: #### 5 7021-8 ####[facility] LABCLIA [id number] [place] [address] Hemoglobin (Bld) [Mass/Vol] 13.1 g/dL Normal 11.5-15.5 [facility] Comment on above: Order Comment: Speci men Type: BLOOD SPECIMENOrdering Facility: [facility] Address: [address] [place] [address] Performed By: #### 5 7021-8 ####[facility] LABCLIA [id number] [place] [address] Immature granulocytes (Bld) [#/Vol] 0.05 10*3/uL Normal <0.10 [facility] Comment on above: Order Comment: Speci men Type: BLOOD SPECIMENOrdering Facility: [facility] Address: [address] [place] [address] Performed By: #### 5 7021-8 ####[facility] LABCLIA [id number] [place] [address] Immature granulocytes/100 WBC (Bld) 0.5 % Normal [facility] Comment on above: Order Comment: Speci men Type: BLOOD SPECIMENOrdering Facility: [facility] Address: [address] [place] [address] Performed By: #### 5 7021-8 ####[facility] LABCLIA [id number] [place] [address] Lymphocytes (Bld) [#/Vol] 2.90 10*3/uL Normal 1.00-4.00 [facility] Comment on above: Order Comment: Speci men Type: BLOOD SPECIMENOrdering Facility: [facility] Address: [address] [place] [address] Performed By: #### 5 7021-8 ####[facility] LABCLIA [id number] [place] [address] Lymphocytes/100 WBC (Bld) 28.9 % Normal [facility] Comment on above: Order Comment: Speci men Type: BLOOD SPECIMENOrdering Facility: [facility] Address: [address] [place] [address] Performed By: #### 5 7021-8 ####[facility] LABCLIA [id number] [place] [address] MCH (RBC) [Entitic mass] 30.5 pg Normal 26.0-34.0 [facility] Comment on above: Order Comment: Speci men Type: BLOOD SPECIMENOrdering Facility: [facility] Address: [address] [place] [address] Performed By: #### 5 7021-8 ####[facility] LABCLIA [id number] [place] [address] MCHC (RBC) [Mass/Vol] 31.9 g/dL Normal 30.5-36.0 [facility] Comment on above: Order Comment: Speci men Type: BLOOD SPECIMENOrdering Facility: [facility] Address: [address] [place] [address] Performed By: #### 5 7021-8 ####[facility] LABCLIA [id number] [place] [address] MCV (RBC) [Entitic vol] 95.8 fL Normal 80.0-100.0 [facility] Comment on above: Order Comment: Speci men Type: BLOOD SPECIMENOrdering Facility: [facility] Address: [address] [place] [address] Performed By: #### 5 7021-8 ####[facility] LABCLIA [id number] [place] [address] Monocytes (Bld) [#/Vol] 0.54 10*3/uL Normal <0.87 [facility] Comment on above: Order Comment: Speci men Type: BLOOD SPECIMENOrdering Facility: [facility] Address: [address] [place] [address] Performed By: #### 5 7021-8 ####[facility] LABCLIA [id number] [place] [address] Monocytes/100 WBC (Bld) 5.4 % Normal [facility] Comment on above: Order Comment: Speci men Type: BLOOD SPECIMENOrdering Facility: [facility] Address: [address] [place] [address] Performed By: #### 5 7021-8 ####[facility] LABCLIA [id number] [place] [address] Neutrophils (Bld) [#/Vol] 6.41 10*3/uL Normal 1.45-7.50 [facility] Comment on above: Order Comment: Speci men Type: BLOOD SPECIMENOrdering Facility: [facility] Address: [address] [place] [address] Performed By: #### 5 7021-8 ####[facility] LABCLIA [id number] [place] [address] Neutrophils/100 WBC (Bld) 63.8 % Normal [facility] Comment on above: Order Comment: Speci men Type: BLOOD SPECIMENOrdering Facility: [facility] Address: [address] [place] [address] Performed By: #### 5 7021-8 ####[facility] LABCLIA [id number] [place] [address] Nucleated RBC (Bld) [#/Vol] 10*3/uL Normal <0.01 [facility] Comment on above: Order Comment: Speci men Type: BLOOD SPECIMENOrdering Facility: [facility] Address: [address] [place] [address] Performed By: #### 5 7021-8 ####[facility] LABCLIA [id number] [place] [address] Nucleated RBC/100 WBC (Bld) [Ratio] 0.0 /100 WBC Normal [facility] Comment on above: Order Comment: Speci men Type: BLOOD SPECIMENOrdering Facility: [facility] Address: [address] [place] [address] Performed By: #### 5 7021-8 ####[facility] LABCLIA [id number] [place] [address] Platelet mean volume (Bld) [Entitic vol] 9.4 fL Normal 9.0-12.7 [facility] Comment on above: Order Comment: Speci men Type: BLOOD SPECIMENOrdering Facility: [facility] Address: [address] [place] [address] Performed By: #### 5 7021-8 ####[facility] LABCLIA [id number] [place] [address] Platelets (Bld) [#/Vol] 290 10*3/uL Normal 150-400 [facility] Comment on above: Order Comment: Speci men Type: BLOOD SPECIMENOrdering Facility: [facility] Address: [address] [place] [address] Performed By: #### 5 7021-8 ####[facility] LABIA [id number] [place] [address] RBC (Bld) [#/Vol] 4.29 10*6/uL Normal 3.90-5.20 [facility] Comment on above: Order Comment: Speci men Type: BLOOD SPECIMENOrdering Facility: [facility] Address: [address] [place] [address] Performed By: #### 5 7021-8 ####[facility] LABIA [id number] [place] [address] WBC (Bld) [#/Vol] 10.04 10*3/uL Normal 3.70-11.00 [facility] Comment on above: Order Comment: Speci men Type: BLOOD SPECIMENOrdering Facility: [facility] Address: [address] [place] [address] Performed By: #### 5 7021-8 ####[facility] LABIA [id number] [place] [address] Comprehensive metabolic 2000 panelon 04-09-2023 Albumin [Mass/Vol] 4.1 g/dL Normal 3.9-4.9 [facility] Comment on above: Order Comment: Speci men Type: BLOOD SPECIMENOrdering Facility: [facility] Address: [address] [place] [address] Performed By: #### 2 4323-8 ####[facility] LABCLIA [id number] [place] [address] ALP [Catalytic activity/Vol] 74 U/L Normal 34-123 [facility] Comment on above: Order Comment: Speci men Type: BLOOD SPECIMENOrdering Facility: [facility] Address: [address] [place] [address] Performed By: #### 2 4323-8 ####[facility] LABCLIA [id number] [place] [address] ALT [Catalytic activity/Vol] 17 U/L Normal 7-38 [facility] Comment on above: Order Comment: Speci men Type: BLOOD SPECIMENOrdering Facility: [facility] Address: [address] [place] [address] Performed By: #### 2 4323-8 ####[facility] LABCLIA [id number] [place] [address] Anion gap [Moles/Vol] 12 mmol/L Normal 9-18 [facility] Comment on above: Order Comment: Speci men Type: BLOOD SPECIMENOrdering Facility: [facility] Address: [address] [place] [address] Performed By: #### 2 4323-8 ####[facility] LABCLIA [id number] [place] [address] AST [Catalytic activity/Vol] 11 U/L Low 13-35 [facility] Comment on above: Order Comment: Speci men Type: BLOOD SPECIMENOrdering Facility: [facility] Address: [address] [place] [address] Performed By: #### 2 4323-8 ####[facility] LABCLIA [id number] [place] [address] Bilirubin [Mass/Vol] 0.2 mg/dL Normal 0.2-1.3 [facility] Comment on above: Order Comment: Speci men Type: BLOOD SPECIMENOrdering Facility: [facility] Address: [address] [place] [address] Performed By: #### 2 4323-8 ####[facility] LABCLIA [id number] [place] [address] Calcium [Mass/Vol] 9.4 mg/dL Normal 8.5-10.2 [facility] Comment on above: Order Comment: Speci men Type: BLOOD SPECIMENOrdering Facility: [facility] Address: [address] [place] [address] Performed By: #### 2 4323-8 ####[facility] LABCLIA [id number] [place] [address] Chloride [Moles/Vol] 106 mmol/L High 97-105 [facility] Comment on above: Order Comment: Speci men Type: BLOOD SPECIMENOrdering Facility: [facility] Address: [address] [place] [address] Performed By: #### 2 4323-8 ####[facility] LABCLIA [id number] [place] [address] CO2 [Moles/Vol] 26 mmol/L Normal 22-30 [facility] Comment on above: Order Comment: Speci men Type: BLOOD SPECIMENOrdering Facility: [facility] Address: [address] [place] [address] Performed By: #### 2 4323-8 ####[facility] LABCLIA [id number] [place] [address] Creatinine [Mass/Vol] 0.89 mg/dL Normal 0.58-0.96 [facility] Comment on above: Order Comment: Speci men Type: BLOOD SPECIMENOrdering Facility: [facility] Address: [address] [place] [address] Performed By: #### 2 4323-8 ####[facility] LABCLIA [id number] [place] [address] Creatinine and Glomerular filtration rate.predicted panel (S/P/Bld) 83 mL/min/1.73m??? Normal >=60 [facility] Comment on above: Order Comment: Semaj cortés Type: BLOOD SPECIMENOrdering Facility: [facility] Address: [address] [place] [address] Result Comment: Erin mated Glomerular Filtration Rate (eGFR) is calculated using the 2020 CKD-EPI creatinine equation. This equation utilizes serum creatinine, sex, and age as parameters. The creatinine assay has traceable calibration to isotope dilution-mass spectrometry. Refer to KDIGO guidelines for clinical interpretation. In patients with unstable renal function, e.g. those with acute kidney injury, the eGFR may not accurately reflect actual GFR. Performed By: #### 2 4323-8 ####[facility] LABCLIA [id number] [place] [address] Glucose [Mass/Vol] 120 mg/dL High 74-99 [facility] Comment on above: Order Comment: Semaj cortés Type: BLOOD SPECIMENOrdering Facility: [facility] Address: [address] [place] [address] Result Comment: The [place] Diabetes Association (ADA) provides guidance for cutoff values for fasting glucose and random glucose. The ADA defines fasting as no caloric intake for at least 8 hours. Fasting plasma glucose results between 100 to 125 mg/dL indicate increased risk for diabetes (prediabetes).Fasting plasma glucose results greater than or equal to 126 mg/dL meet the criteria for diagnosis of diabetes. In the absence of unequivocal hyperglycemia, results should be confirmed by repeat testing. In a patient with classic symptoms of hyperglycemia or hyperglycemic crisis, random plasma glucose results greater than or equal to 200 mg/dL meet the criteria for diagnosis of diabetes.Reference: Standards of Medical Care in Diabetes 2016, [place] Diabetes Association. Diabetes Care. 2016.39(Suppl 1). Performed By: #### 2 4323-8 ####[facility] LABCLIA [id number] [place] [address] Potassium [Moles/Vol] 3.7 mmol/L Normal 3.7-5.1 [facility] Comment on above: Order Comment: Semaj cortés Type: BLOOD SPECIMENOrdering Facility: [facility] Address: [address] [place] [place] [id number] Performed By: #### 2 4323-8 ####[facility] LABCLIA [id number] [place] [address] Protein [Mass/Vol] 6.7 g/dL Normal 6.3-8.0 [facility] Comment on above: Order Comment: Speci men Type: BLOOD SPECIMENOrdering Facility: [facility] Address: [address] [place] [address] Performed By: #### 2 4323-8 ####[facility] LABCLIA [id number] [place] [address] Sodium [Moles/Vol] 144 mmol/L Normal 136-144 [facility] Comment on above: Order Comment: Speci men Type: BLOOD SPECIMENOrdering Facility: [facility] Address: [address] [place] [address] Performed By: #### 2 4323-8 ####[facility] LABCLIA [id number] [place] [address] Urea nitrogen [Mass/Vol] 24 mg/dL High 7-21 [facility] Comment on above: Order Comment: Speci men Type: BLOOD SPECIMENOrdering Facility: [facility] Address: [address] [place] [address] Performed By: #### 2 4323-8 ####[facility] LABCLIA [id number] [place] [address] Ferritin SerPl-mCncon 2022 Ferritin [Mass/Vol] 21.2 ng/mL Normal 14.7-205.1 [facility] Comment on above: Order Comment: Speci men Type: BLOOD SPECIMENOrdering Facility: [facility] Address: [address] [place] [address] Performed By: #### 2 276-4, 2284-8, 45239-4, 2132-9 ####[facility] LABCLIA [id number] [place] [address] [address] [place] Folate SerPl-mCncon 04-09-20 23 Folate [Mass/Vol] 10.7 ng/mL Normal >4.7 [facility] Comment on above: Order Comment: Speci men Type: BLOOD SPECIMENOrdering Facility: [facility] Address: [address] [place] [address] Performed By: #### 2 276-4, 2284-8, 75448-1, 2132-9 ####[facility] LABIA [id number] [place] [address] [place] INSULIN ANTIBODY BLDon 04-09 Insulin Ab Qn (S) <0.4 Normal <0.4 [facility] Comment on above: Order Comment: Speci men Type: BLOOD SPECIMENOrdering Facility: [facility] Address: [address] [place] [address] Result Comment: Anti -insulin antibody test is used as an aid in diagnosis and prognosis of autoimmune diabetes mellitus in combination with other tests such as anti-GAD65 and anti-IA-2 antibody. A single negative result cannot rule out autoimmune diabetes mellitus. The test is not reliable in patients who had previously received exogenous insulin. Clinical correlation is required. Performed By: #### I NSLAB ####[facility] LABIA [id number] [place] [address] [place] INSULIN ANTIBODY, QUALITATIVE Negative Normal Negative [facility] Comment on above: Order Comment: Speci men Type: BLOOD SPECIMENOrdering Facility: [facility] Address: [address] [place] [address] Performed By: #### I NSLAB ####[facility] LABIA [id number] [place] [address] [place] Insulin SerPl-aCncon 023 Insulin Qn 266.5 u[IU]/mL High 3.0-25.0 [facility] Comment on above: Order Comment: Speci men Type: BLOOD SPECIMENOrdering Facility: [facility] Address: [address] [place] [address] Performed By: #### 2 0448-7 ####[facility] LABIA [id number] [place] [id number] [place] Iron and Iron binding capaci ty panelon 04-09-2023 Iron [Mass/Vol] 105 ug/dL Normal 41-186 [facility] Comment on above: Order Comment: Speci men Type: BLOOD SPECIMENOrdering Facility: [facility] Address: [address] [place] [address] Performed By: #### 2 276-4, 2284-8, 16982-9, 9 ####[facility] LABIA [id number] [place] [address] [place] Iron binding capacity [Mass/Vol] 414 ug/dL High 232-386 [facility] Comment on above: Order Comment: Speci men Type: BLOOD SPECIMENOrdering Facility: [facility] Address: [address] [place] [address] Performed By: #### 2 276-4, 2284-8, 69429-7, 2132-01 ####[facility] [id number] [place] [address] [place] Iron/TIBC [Molar ratio] 25.4 % Normal 15.0-57.0 [facility] Comment on above: Order Comment: Speci men Type: BLOOD SPECIMENOrdering Facility: [facility] Address: [address] [place] [address] Performed By: #### 2 276-4, 2284-8, 88419-1, 2132-01 ####[facility] [id number] [place] [id number] [place] Vit B12 [facility]Pl[facility] Cobalamin (Vitamin B12) [Mass/Vol] 370 pg/mL Normal 232-1245 [facility] Comment on above: Order Comment: Speci men Type: BLOOD SPECIMENOrdering Facility: [facility] Address: [address] [place] [address] Performed By: #### 2 276-4, 2284-8, 36297-4, 2132-9 ####[facility] LABCLIA [id number] [place] [id number] [place] CNNURSEon 03-19-2023 CNNURSE Normal [facility] CNNURSEon 03-11-2023 CNNURSE Normal [facility] CNPNon 03-01-2023 CNPN Normal [facility] CNNURSEon 02-19-2023 CNNURSE Normal [facility] CNOVSPon 02-19-2023 CNOVSP Normal [facility] B2 Microglob SerPl-mCncon Fyqp-3-Tjnkgyknfrboe [Mass/Vol] 1.9 ug/mL Normal 0.8-2.4 [facility] Comment on above: Order Comment: Speci men Type: BLOOD SPECIMENOrdering Facility: [facility] Address: [address] [place] [address] Result Comment: Beta -2 Microglobulin test is performed using the [employer] immunoturbidimetric method. Results obtained with different methods or kits cannot be used interchangeably. Performed By: #### 1 952-1, 39266-5, 2276-4 ####[facility] LABCLIA [id number] [place] [address] [place] CBC W Auto Differential pane l (Bld)on 02-11-2023 Basophils (Bld) [#/Vol] 0.08 10*3/uL Normal <0.11 [facility] Comment on above: Order Comment: Speci men Type: BLOOD SPECIMENOrdering Facility: [facility] Address: [address] [place] [id number] Performed By: #### 5 7021-8 ####[facility] LABCLIA [id number] [place] [address] Basophils/100 WBC (Bld) 0.8 % Normal [facility] Comment on above: Order Comment: Speci men Type: BLOOD SPECIMENOrdering Facility: [facility] Address: [address] [place] [address] Performed By: #### 5 7021-8 ####[facility] LABCLIA [id number] [place] [address] Differential cell count method Nom (Bld) Auto Normal [facility] Comment on above: Order Comment: Speci men Type: BLOOD SPECIMENOrdering Facility: [facility] Address: [address] [place] [address] Performed By: #### 5 7021-8 ####[facility] LABCLIA [id number] [place] [address] Eosinophils (Bld) [#/Vol] 0.16 10*3/uL Normal <0.46 [facility] Comment on above: Order Comment: Speci men Type: BLOOD SPECIMENOrdering Facility: [facility] Address: [address] [place] [address] Performed By: #### 5 7021-8 ####[facility] LABCLIA [id number] [place] [address] Eosinophils/100 WBC (Bld) 1.6 % Normal [facility] Comment on above: Order Comment: Speci men Type: BLOOD SPECIMENOrdering Facility: [facility] Address: [address] [place] [address] Performed By: #### 5 7021-8 ####[facility] LABCLIA [id number] [place] [address] Erythrocyte distribution width (RBC) [Ratio] 14.6 % Normal 11.5-15.0 [facility] Comment on above: Order Comment: Speci men Type: BLOOD SPECIMENOrdering Facility: [facility] Address: [address] [place] [address] Performed By: #### 5 7021-8 ####[facility] LABCLIA [id number] [place] [address] Hematocrit (Bld) [Volume fraction] 41.0 % Normal 36.0-46.0 [facility] Comment on above: Order Comment: Speci men Type: BLOOD SPECIMENOrdering Facility: [facility] Address: [address] [place] [address] Performed By: #### 5 7021-8 ####[facility] LABCLIA [id number] [place] [address] Hemoglobin (Bld) [Mass/Vol] 13.2 g/dL Normal 11.5-15.5 [facility] Comment on above: Order Comment: Speci men Type: BLOOD SPECIMENOrdering Facility: [facility] Address: [address] [place] [address] Performed By: #### 5 7021-8 ####[facility] LABIA [id number] [place] [address] Immature granulocytes (Bld) [#/Vol] 0.07 10*3/uL Normal <0.10 [facility] Comment on above: Order Comment: Speci men Type: BLOOD SPECIMENOrdering Facility: [facility] Address: [address] [place] [address] Performed By: #### 5 7021-8 ####[facility] LABIA [id number] [place] [address] Immature granulocytes/100 WBC (Bld) 0.7 % Normal [facility] Comment on above: Order Comment: Speci men Type: BLOOD SPECIMENOrdering Facility: [facility] Address: [address] [place] [address] Performed By: #### 5 7021-8 ####[facility] LABIA [id number] [place] [address] Lymphocytes (Bld) [#/Vol] 2.29 10*3/uL Normal 1.00-4.00 [facility] Comment on above: Order Comment: Speci men Type: BLOOD SPECIMENOrdering Facility: [facility] Address: [address] [place] [address] Performed By: #### 5 7021-8 ####[facility] LABCLIA [id number] [place] [address] Lymphocytes/100 WBC (Bld) 22.4 % Normal [facility] Comment on above: Order Comment: Speci men Type: BLOOD SPECIMENOrdering Facility: [facility] Address: [address] [place] [address] Performed By: #### 5 7021-8 ####[facility] LABCLIA [id number] [place] [address] MCH (RBC) [Entitic mass] 30.6 pg Normal 26.0-34.0 [facility] Comment on above: Order Comment: Speci men Type: BLOOD SPECIMENOrdering Facility: [facility] Address: [address] [place] [address] Performed By: #### 5 7021-8 ####[facility] LABCLIA [id number] [place] [address] MCHC (RBC) [Mass/Vol] 32.2 g/dL Normal 30.5-36.0 [facility] Comment on above: Order Comment: Speci men Type: BLOOD SPECIMENOrdering Facility: [facility] Address: [address] [place] [address] Performed By: #### 5 7021-8 ####[facility] LABCLIA [id number] [place] [address] MCV (RBC) [Entitic vol] 94.9 fL Normal 80.0-100.0 [facility] Comment on above: Order Comment: Speci men Type: BLOOD SPECIMENOrdering Facility: [facility] Address: [address] [place] [address] Performed By: #### 5 7021-8 ####[facility] LABIA [id number] [place] [address] Monocytes (Bld) [#/Vol] 0.62 10*3/uL Normal <0.87 [facility] Comment on above: Order Comment: Speci men Type: BLOOD SPECIMENOrdering Facility: [facility] Address: [address] [place] [address] Performed By: #### 5 7021-8 ####[facility] LABCLIA [id number] [place] [address] Monocytes/100 WBC (Bld) 6.1 % Normal [facility] Comment on above: Order Comment: Speci men Type: BLOOD SPECIMENOrdering Facility: [facility] Address: [address] [place] [address] Performed By: #### 5 7021-8 ####[facility] LABCLIA [id number] [place] [address] Neutrophils (Bld) [#/Vol] 6.99 10*3/uL Normal 1.45-7.50 [facility] Comment on above: Order Comment: Speci men Type: BLOOD SPECIMENOrdering Facility: [facility] Address: [address] [place] [address] Performed By: #### 5 7021-8 ####[facility] LABIA [id number] [place] [address] Neutrophils/100 WBC (Bld) 68.4 % Normal [facility] Comment on above: Order Comment: Speci men Type: BLOOD SPECIMENOrdering Facility: [facility] Address: [address] Performed By: #### 5 7021-8 ####[facility] LABCLIA [id number] [place] [address] Nucleated RBC (Bld) [#/Vol] 10*3/uL Normal <0.01 [facility] Comment on above: Order Comment: Speci men Type: BLOOD SPECIMENOrdering Facility: [facility] Address: [address] [place] [address] Performed By: #### 5 7021-8 ####[facility] LABCLIA [id number] [place] [address] Nucleated RBC/100 WBC (Bld) [Ratio] 0.0 /100 WBC Normal [facility] Comment on above: Order Comment: Speci men Type: BLOOD SPECIMENOrdering Facility: [facility] Address: [address] [place] [address] Performed By: #### 5 7021-8 ####[facility] LABCLIA [id number] [place] [address] Platelet mean volume (Bld) [Entitic vol] 9.6 fL Normal 9.0-12.7 [facility] Comment on above: Order Comment: Speci men Type: BLOOD SPECIMENOrdering Facility: [facility] Address: [address] [place] [address] Performed By: #### 5 7021-8 ####[facility] LABIA [id number] [place] [address] Platelets (Bld) [#/Vol] 258 10*3/uL Normal 150-400 [facility] Comment on above: Order Comment: Speci men Type: BLOOD SPECIMENOrdering Facility: [facility] Address: [address] [place] [address] Performed By: #### 5 7021-8 ####[facility] LABCLIA [id number] [place] [address] RBC (Bld) [#/Vol] 4.32 10*6/uL Normal 3.90-5.20 [facility] Comment on above: Order Comment: Speci men Type: BLOOD SPECIMENOrdering Facility: [facility] Address: [address] [place] [address] Performed By: #### 5 7021-8 ####[facility] LABIA [id number] [place] [address] WBC (Bld) [#/Vol] 10.21 10*3/uL Normal 3.70-11.00 [facility] Comment on above: Order Comment: Speci men Type: BLOOD SPECIMENOrdering Facility: [facility] Address: [address] [place] [address] Performed By: #### 5 7021-8 ####[facility] LABCLIA [id number] [place] [address] Calcium.ionized [Moles/Vol]o n 02-11-2023 Calcium.ionized (Bld) [Mass/Vol] 1.32 mmol/L High 1.08-1.30 [facility] Comment on above: Order Comment: Speci men Type: BLOOD SPECIMENOrdering Facility: [facility] Address: [address] [place] [address] Performed By: #### 1 995-0 ####[facility] LABIA [id number] [place] [address] [place] Calcium.ionized adjusted to pH 7.4 (Bld) [Moles/Vol] 1.27 mmol/L Normal 1.08-1.30 [facility] Comment on above: Order Comment: Speci men Type: BLOOD SPECIMENOrdering Facility: [facility] Address: [address] [place] [address] Performed By: #### 1 995-0 ####[facility] LABIA [id number] [place] [address] [place] Comprehensive metabolic 2000 panelon 02-11-2023 Albumin [Mass/Vol] 4.0 g/dL Normal 3.9-4.9 [facility] Comment on above: Order Comment: Speci men Type: BLOOD SPECIMENOrdering Facility: [facility] Address: [address] [place] [address] Performed By: #### 2 4323-8, 2532-0, 2777-1, 3084-1 ####[facility] LABCLIA [id number] [place] [address] ALP [Catalytic activity/Vol] 75 U/L Normal 34-123 [facility] Comment on above: Order Comment: Speci men Type: BLOOD SPECIMENOrdering Facility: [facility] Address: [address] [address] Performed By: #### 2 4323-8, 2532-0, 7-1, 3083-1 ####[facility] LABCLIA [id number] [place] [address] ALT [Catalytic activity/Vol] 21 U/L Normal 7-38 [facility] Comment on above: Order Comment: Speci men Type: BLOOD SPECIMENOrdering Facility: [facility] Address: [address] [place] [address] Performed By: #### 2 4323-8, 2-0, 2776-1, 3083-1 ####[facility] LABIA [id number] [place] [address] Anion gap [Moles/Vol] 11 mmol/L Normal 9-18 [facility] Comment on above: Order Comment: Speci men Type: BLOOD SPECIMENOrdering Facility: [facility] Address: [address] [place] [address] Performed By: #### 2 4323-8, 2-0, 2776-1, 3083-1 ####[facility] LABIA [id number] [place] [address] AST [Catalytic activity/Vol] 11 U/L Low 13-35 [facility] Comment on above: Order Comment: Speci men Type: BLOOD SPECIMENOrdering Facility: [facility] Address: [address] [place] [address] Performed By: #### 2 4323-8, 2532-0, 2776-1, 308-1 ####[facility] LABIA [id number] [place] [address] Bilirubin [Mass/Vol] mg/dL Low 0.2-1.3 [facility] Comment on above: Order Comment: Speci men Type: BLOOD SPECIMENOrdering Facility: [facility] Address: [address] [place] [address] Performed By: #### 2 4323-8, 2532-0, 2777-1, 3084-1 ####[facility] LABCLIA [id number] [place] [address] Calcium [Mass/Vol] 9.7 mg/dL Normal 8.5-10.2 [facility] Comment on above: Order Comment: Speci men Type: BLOOD SPECIMENOrdering Facility: [facility] Address: [address] [address] Performed By: #### 2 4323-8, 2532-0, 2777-1, 3084-1 ####[facility] LABCLIA [id number] [place] [address] Chloride [Moles/Vol] 107 mmol/L High 97-105 [facility] Comment on above: Order Comment: Speci men Type: BLOOD SPECIMENOrdering Facility: [facility] Address: [address] [place] [address] Performed By: #### 2 4323-8, 2532-0, 2777-1, 3084-1 ####[facility] LABCLIA [id number] [place] [address] CO2 [Moles/Vol] 23 mmol/L Normal 22-30 [facility] Comment on above: Order Comment: Speci men Type: BLOOD SPECIMENOrdering Facility: [facility] Address: [address] [place] [address] Performed By: #### 2 4323-8, 2532-0, 2777-1, 3084-1 ####[facility] LABCLIA [id number] [place] [address] Creatinine [Mass/Vol] 0.76 mg/dL Normal 0.58-0.96 [facility] Comment on above: Order Comment: Speci men Type: BLOOD SPECIMENOrdering Facility: [facility] Address: [address] [place] [address] Performed By: #### 2 4323-8, 2532-0, 2777-1, 3084-1 ####[facility] LABCLIA [id number] [place] [address] Creatinine and Glomerular filtration rate.predicted panel (S/P/Bld) 100 mL/min/1.73m??? Normal >=60 [facility] Comment on above: Order Comment: Semaj cortés Type: BLOOD SPECIMENOrdering Facility: [facility] Address: [address] [place] [address] Result Comment: Erin mated Glomerular Filtration Rate (eGFR) is calculated using the 2020 CKD-EPI creatinine equation. This equation utilizes serum creatinine, sex, and age as parameters. The creatinine assay has traceable calibration to isotope dilution-mass spectrometry. Refer to KDIGO guidelines for clinical interpretation. In patients with unstable renal function, e.g. those with acute kidney injury, the eGFR may not accurately reflect actual GFR. Performed By: #### 2 4323-8, 2532-0, 2777-1, 3084-1 ####[facility] LABCLIA [id number] [place] [address] Glucose [Mass/Vol] 164 mg/dL High 74-99 [facility] Comment on above: Order Comment: Semaj cortés Type: BLOOD SPECIMENOrdering Facility: [facility] Address: [address] [place] [address] Result Comment: The [place] Diabetes Association (ADA) provides guidance for cutoff values for fasting glucose and random glucose. The ADA defines fasting as no caloric intake for at least 8 hours. Fasting plasma glucose results between 100 to 125 mg/dL indicate increased risk for diabetes (prediabetes).Fasting plasma glucose results greater than or equal to 126 mg/dL meet the criteria for diagnosis of diabetes. In the absence of unequivocal hyperglycemia, results should be confirmed by repeat testing. In a patient with classic symptoms of hyperglycemia or hyperglycemic crisis, random plasma glucose results greater than or equal to 200 mg/dL meet the criteria for diagnosis of diabetes.Reference: Standards of Medical Care in Diabetes 2016, [place] Diabetes Association. Diabetes Care. 2016.39(Suppl 1). Performed By: #### 2 4323-8, 2532-0, 2777-1, 3084-1 ####[facility] LABIA [id number] [place] [address] Potassium [Moles/Vol] 4.0 mmol/L Normal 3.7-5.1 [facility] Comment on above: Order Comment: Speci men Type: BLOOD SPECIMENOrdering Facility: [facility] Address: [address] [address] Performed By: #### 2 4323-8, 2532-0, 2777-1, 3084-1 ####[facility] LABIA [id number] [place] [address] Protein [Mass/Vol] 6.5 g/dL Normal 6.3-8.0 [facility] Comment on above: Order Comment: Speci men Type: BLOOD SPECIMENOrdering Facility: [facility] Address: [address] [place] [address] Performed By: #### 2 4323-8, 2532-0, 2776-1, 3084-1 ####[facility]ITAL[facility] [id number] [place] [address] Sodium [Moles/Vol] 141 mmol/L Normal 136-144 [facility] Comment on above: Order Comment: Speci men Type: BLOOD SPECIMENOrdering Facility: [facility] Address: [address] [place] [address] Performed By: #### 2 4323-8, 2532-0, 7-1, 3084-1 ####[facility] LABIA [id number] [place] [address] Urea nitrogen [Mass/Vol] 15 mg/dL Normal 7-21 [facility] Comment on above: Order Comment: Speci men Type: BLOOD SPECIMENOrdering Facility: [facility] Address: [address] [place] [address] Performed By: #### 2 4323-8, 2532-0, 2777-1, 3084-1 ####[facility] LABCLIA [id number] [place] [address] Ferritin SerPl-mCncon 2022 Ferritin [Mass/Vol] 34.2 ng/mL Normal 14.7-205.1 [facility] Comment on above: Order Comment: Speci men Type: BLOOD SPECIMENOrdering Facility: [facility] Address: [address] [place] [address] Performed By: #### 1 952-1, 90051-2, 2276-4 ####[facility] LABCLIA [id number] [address] [place] Folate SerPl-mCncon 02-12-20 Folate [Mass/Vol] ng/mL Normal >4.7 [facility] Comment on above: Order Comment: Speci men Type: BLOOD SPECIMENOrdering Facility: [facility] Address: [address] [place] [address] Result Comment: A re sult of > 20 ng/mL is not necessarily indicative of a pathologic or treatable condition: it reflects a limitation of the test methodology.Assay reference range: 4.8 to 24.2 ng/mL. Suitable for detection of folate deficiency.Reference:Folate III (Folate III) [package insert V 1.0 [place]]. [facility], [place], [place]: March 2015. Performed By: #### 2 885-2, 2132-9, 2284-8 ####[facility] LABIA [id number] [address] [place] IMMUNOFIXATION SCREEN, SERUM on 02-11-2023 MPA RESULT No M protein is identified. Normal No M protein is identified. [facility] Comment on above: Order Comment: Speci men Type: BLOOD SPECIMENOrdering Facility: [facility] Address: [address] [place] [address] Performed By: #### I [facility] ####[facility] LABCLIA [id number] [address] [place] STAFF REVIEW (MPA) Reviewed by Daphne vyas M.D. Normal [facility] Comment on above: Order Comment: Speci men Type: BLOOD SPECIMENOrdering Facility: [facility] Address: [address] [place] [address] Performed By: #### I FESC ####[facility] LABCLIA [id number] [place] [address] [place] IMMUNOGLOBULINS GAMon 2022 IgA [Mass/Vol] 178 mg/dL Normal 70-400 [facility] Comment on above: Order Comment: Speci men Type: BLOOD SPECIMENOrdering Facility: [facility] Address: [address] [place] [address] Performed By: #### S ERIMM ####[facility] LABCLIA [id number] [address] [place] IgG [Mass/Vol] 534 mg/dL Low 700-1600 [facility] Comment on above: Order Comment: Speci men Type: BLOOD SPECIMENOrdering Facility: [facility] Address: [address] [place] [address] Performed By: #### S ERIMM ####[facility] LABCLIA [id number] [place] [address] [place] IgM [Mass/Vol] 453 mg/dL High 40-230 [facility] Comment on above: Order Comment: Speci men Type: BLOOD SPECIMENOrdering Facility: [facility] Address: [address] [place] [address] Performed By: #### S ERIMM ####[facility] LABIA [id number] [place] [address] [place] Iron and Iron binding capaci ty panelon 02-11-2023 Iron [Mass/Vol] 55 ug/dL Normal 41-186 [facility] Comment on above: Order Comment: Speci men Type: BLOOD SPECIMENOrdering Facility: [facility] Address: [address] [id number] Performed By: #### 1 952-1, 40067-6, 2276-4 ####[facility] LABCLIA [id number] [place] [address] [place] Iron binding capacity [Mass/Vol] 339 ug/dL Normal 232-386 [facility] Comment on above: Order Comment: Speci men Type: BLOOD SPECIMENOrdering Facility: [facility] Address: [address] Performed By: #### 1 952-1, 94403-9, 2275-4 ####[facility] LABIA [id number] [place] [address] [place] Iron/TIBC [Molar ratio] 16.2 % Normal 15.0-57.0 [facility] Comment on above: Order Comment: Speci men Type: BLOOD SPECIMENOrdering Facility: [facility] Address: [address] [place], [place] [address] Performed By: #### 1 952-1, 62319-1, 2275-4 ####[facility] LABIA [id number] [place] [address] [place] KAPPA/FARMER,FREE,SERon 2022 Immunoglobulin light chains.kappa.free (S) [Mass/Vol] 13.1 mg/L Normal 3.3-19.4 [facility] Comment on above: Order Comment: [facility] Type: BLOOD SPECIMENOrdering Facility: [facility] Address: [address] [place], [place] [address] Result Comment: Rare ly, increased serum free light chains levels may not be detected or accurately quantified due to prozone phenomenon or in high viscosity samples using this immunoturbidimetric assay. Correlation with other laboratory results and clinical findings is recommended.The Ney Free Light Chain was performed using the Binding Site Optilite immunoturbidimetric method. Result obtained with different assay methods or kits cannot be used interchangeably. Performed By: #### K LFRS ####[facility] LABIA [id number] [address] Immunoglobulin light chains.kappa/Immunog lobulin light chains.lambda (S) [Mass ratio] 1.22 Normal 0.26-1.65 [facility] Comment on above: Order Comment: Speci men Type: BLOOD SPECIMENOrdering Facility: [facility] Address: [address] [place] [address] Performed By: #### K LFRS ####[facility] [id number] [address] Immunoglobulin light chains.lambda.free [Mass/Vol] 10.7 mg/L Normal 5.7-26.3 [facility] Comment on above: Order Comment: [facility]i [facility] Type: BLOOD SPECIMENOrdering Facility: [facility] Address: [address] [place] [address] Result Comment: Rare ly, increased serum free light chains levels may not be detected or accurately quantified due to prozone phenomenon or in high viscosity samples using this immunoturbidimetric assay. Correlation with other laboratory results and clinical findings is recommended.The Lambda Free Light Chain was performed using the Binding Site Optilite immunoturbidimetric method. Result obtained with different assay methods or kits cannot be used interchangeably. Performed By: #### K LFRS ####[facility] LABIA [id number] [place] [address] [place] LDH SerPl-cCncon 02-11-2023 LDH [Catalytic activity/Vol] 190 U/L Normal 135-214 [facility] Comment on above: Order Comment: Speci men Type: BLOOD SPECIMENOrdering Facility: [facility] Address: [address] [place] [address] Result Comment: Hemo lysis present. The origin of the hemolysis, in vitro versus an in vivo hemolytic process, cannot be distinguished via this assay alone. In vitro hemolysis may lead to non-physiological (spurious) elevation in lactate dehydrogenase (LDH) results. Theresult should be interpreted in context of the clinical setting and other test results. Suggest reorder as clinically indicated. Performed By: #### 2 4323-8, 2532-0, 2777-1, 3084-1 ####[facility] LABCLIA [id number] [place] [address] PROTEIN ELECTROPHORESIS SERU M (P)on 02-11-2023 Albumin [Mass/Vol] 3.61 g/dL Normal 3.43-5.41 [facility] Comment on above: Order Comment: Speci men Type: BLOOD SPECIMENOrdering Facility: [facility] Address: [address] [place] [address] Performed By: #### L [id number] ####[facility] LABCLIA [id number] [place] [address] [place] Alpha 1 globulin Elph [Mass/Vol] 0.31 g/dL Normal 0.18-0.43 [facility] Comment on above: Order Comment: Speci men Type: BLOOD SPECIMENOrdering Facility: [facility] Address: [address] [place] [address] Performed By: #### L [id number] ####[facility] LABCLIA [id number] [place] [address] [place] Alpha 2 globulin Elph [Mass/Vol] 0.76 g/dL Normal 0.42-0.98 [facility] Comment on above: Order Comment: Speci men Type: BLOOD SPECIMENOrdering Facility: [facility] Address: [address] [address] Performed By: #### L [id number] ####[facility] LABCLIA [id number] [place] [address] [place] Beta globulin Elph [Mass/Vol] 0.85 g/dL Normal 0.61-1.17 [facility] Comment on above: Order Comment: Speci men Type: BLOOD SPECIMENOrdering Facility: [facility] Address: [address] Performed By: #### L [id number] ####[facility] LABIA [id number] [address] [place] Gamma globulin Elph [Mass/Vol] 0.66 g/dL Normal 0.53-1.51 [facility] Comment on above: Order Comment: Speci men Type: BLOOD SPECIMENOrdering Facility: [facility] Address: [address] [address] Performed By: #### L [id number] ####[facility] [id number] [address] [place] M-PROTEIN LOCATION Normal [facility] Comment on above: Order Comment: Speci men Type: BLOOD SPECIMENOrdering Facility: [facility] Address: [address] [place] [address] Result Comment: Not Applicable. Performed By: #### L [id number] ####[facility]ITAL[facility] [id number] [place] [address] [place] Protein Fractions [Interp] No definitive M protein is identified on protein electrophoresis. Normal No definitive M protein is identified on protein electrophore sis. [facility] Comment on above: Order Comment: Speci men Type: BLOOD SPECIMENOrdering Facility: [facility] Address: [address] [address] Performed By: #### L [id number] ####[facility] LABIA [id number] [address] [place] Protein.monoclonal Elph [Mass/Vol] 0.00 g/dL Normal <=0.00 [facility] Comment on above: Order Comment: Speci men Type: BLOOD SPECIMENOrdering Facility: [facility] Address: [address] [address] Performed By: #### L [id number] ####[facility] LABIA [id number] [place] [address] [place] SPE STAFF REVIEW Reviewed by Daphne vyas M.D. Normal [facility] Comment on above: Order Comment: Speci men Type: BLOOD SPECIMENOrdering Facility: [facility] Address: [address] [place] [address] Performed By: #### L [id number] ####[facility] LABCLIA [id number] [place] [address] [place] Phosphate SerPl-mCncon 02-11 Phosphate [Mass/Vol] 3.4 mg/dL Normal 2.7-4.8 [facility] Comment on above: Order Comment: Speci men Type: BLOOD SPECIMENOrdering Facility: [facility] Address: [address] [place] [address] Performed By: #### 2 4323-8, 2532-0, 2777-1, 3084-1 ####[facility] LABCLIA [id number] [place] [address] Prot SerPl-mCncon 02-11-2023 Protein [Mass/Vol] 6.2 g/dL Low 6.3-8.0 [facility] Comment on above: Order Comment: Speci men Type: BLOOD SPECIMENOrdering Facility: [facility] Address: [address] [place] [address] Performed By: #### 2 885-2, 2132-9, 2284-8 ####[facility] LABCLIA [id number] [place] [address] [place] Urate SerPl-mCncon Urate [Mass/Vol] 4.3 mg/dL Normal 2.5-6.6 [facility] Comment on above: Order Comment: Speci men Type: BLOOD SPECIMENOrdering Facility: [facility] Address: [address] [place] [address] Performed By: #### 2 4323-8, 2532-0, 2777-1, 3084-1 ####[facility] LABCLIA [id number] [place] [address] Vit B12 [facility] Cobalamin (Vitamin B12) [Mass/Vol] 598 pg/mL Normal 232-1245 [facility] Comment on above: Order Comment: Speci men Type: BLOOD SPECIMENOrdering Facility: [facility] Address: [address] [place] [address] Performed By: #### 2 885-2, 2132-9, 2284-8 ####[facility] LABIA [id number] [address] [place] CNPNon 02-04-2023 CNPN Normal [facility] CNPNon 01-24-2023 CNPN Normal [facility] 25(OH)D3 [facility] 2022 25-hydroxyvitamin D3 [Mass/Vol] 25.1 ng/mL Low 31.0-80.0 [facility] Comment on above: Order Comment: Speci men Type: BLOOD SPECIMENOrdering Facility: [facility] Address: [address] [place] [address] Result Comment: Clas sification of 25 [place] Vitamin D status:Deficiency/Insufficiency: < or = 30 ng/ml.Sufficiency/Optimal Levels: 31-80 ng/mLToxicity: > 100 ng/mL.Test performed by chemiluminescent immunoassay. Performed By: #### 1 989-3 ####[facility] LABIA [id number] [address] [place] CBC panel Auto (Bld)on 01-22 Erythrocyte distribution width (RBC) [Ratio] 14.8 % Normal 11.5-15.0 [facility] Comment on above: Order Comment: Speci men Type: BLOOD SPECIMENOrdering Facility: [facility] Address: [address] [place] [address] Performed By: #### 5 8410-2 ####[facility] LABCLIA [id number] [place] [address] Hematocrit (Bld) [Volume fraction] 40.9 % Normal 36.0-46.0 [facility] Comment on above: Order Comment: Speci men Type: BLOOD SPECIMENOrdering Facility: [facility] Address: [address] [place] [address] Performed By: #### 5 8410-2 ####[facility] LABIA [id number] [place] [address] Hemoglobin (Bld) [Mass/Vol] 13.4 g/dL Normal 11.5-15.5 [facility] Comment on above: Order Comment: Speci men Type: BLOOD SPECIMENOrdering Facility: [facility] Address: [address] [place] [address] Performed By: #### 5 8410-2 ####[facility] LABIA [id number] [place] [address] MCH (RBC) [Entitic mass] 30.1 pg Normal 26.0-34.0 [facility] Comment on above: Order Comment: Speci men Type: BLOOD SPECIMENOrdering Facility: [facility] Address: [address] [place] [address] Performed By: #### 5 8410-2 ####[facility] LABIA [id number] [place] [address] MCHC (RBC) [Mass/Vol] 32.8 g/dL Normal 30.5-36.0 [facility] Comment on above: Order Comment: Speci men Type: BLOOD SPECIMENOrdering Facility: [facility] Address: [address] [place] [address] Performed By: #### 5 8410-2 ####[facility] LABIA [id number] [place] [address] MCV (RBC) [Entitic vol] 91.9 fL Normal 80.0-100.0 [facility] Comment on above: Order Comment: Speci men Type: BLOOD SPECIMENOrdering Facility: [facility] Address: [address] [address] Performed By: #### 5 8410-2 ####[facility] LABCLIA [id number] [place] [address] Nucleated RBC (Bld) [#/Vol] 10*3/uL Normal <0.01 [facility] Comment on above: Order Comment: Speci men Type: BLOOD SPECIMENOrdering Facility: [facility] Address: [address] [address] Performed By: #### 5 8410-2 ####[facility] LABCLIA [id number] [place] [address] Platelet mean volume (Bld) [Entitic vol] 9.6 fL Normal 9.0-12.7 [facility] Comment on above: Order Comment: Speci men Type: BLOOD SPECIMENOrdering Facility: [facility] Address: [address] [address] Performed By: #### 5 8410-2 ####[facility] LABCLIA [id number] [place] [address] Platelets (Bld) [#/Vol] 285 10*3/uL Normal 150-400 [facility] Comment on above: Order Comment: Speci men Type: BLOOD SPECIMENOrdering Facility: [facility] Address: [address] [address] Performed By: #### 5 8410-2 ####[facility] LABCLIA [id number] [place] [address] RBC (Bld) [#/Vol] 4.45 10*6/uL Normal 3.90-5.20 [facility] Comment on above: Order Comment: Speci men Type: BLOOD SPECIMENOrdering Facility: [facility] Address: [address] [place] [address] Performed By: #### 5 8410-2 ####[facility] LABCLIA [id number] [place] [address] WBC (Bld) [#/Vol] 13.80 10*3/uL High 3.70-11.00 [facility] Comment on above: Order Comment: Speci men Type: BLOOD SPECIMENOrdering Facility: [facility] Address: [address] [place] [address] Performed By: #### 5 8410-2 ####[facility] LABCLIA [id number] [place] [address] CNNURSEon 01-22-2023 CNNURSE Normal [facility] CRP SerPl-mCncon 01-22-2023 CRP [Mass/Vol] mg/L Normal <0.9 [facility] Comment on above: Order Comment: Speci men Type: BLOOD SPECIMENOrdering Facility: [facility] Address: [address] [place] [address] Performed By: #### 1 988-5 ####[facility] LABCLIA [id number] [place] [address] [facility] Comprehensive metabolic 2000 panelon 01-22-2023 Albumin [Mass/Vol] 4.1 g/dL Normal 3.9-4.9 [facility] Comment on above: Order Comment: Speci men Type: BLOOD SPECIMENOrdering Facility: [facility] Address: [address] [place] [address] Performed By: #### 2 4323-8 ####[facility] LABCLIA [id number] [place] [address] ALP [Catalytic activity/Vol] 62 U/L Normal 34-123 [facility] Comment on above: Order Comment: Speci men Type: BLOOD SPECIMENOrdering Facility: [facility] Address: [address] [place] [address] Performed By: #### 2 4323-8 ####[facility] LABCLIA [id number] [place] [address] ALT [Catalytic activity/Vol] 27 U/L Normal 7-38 [facility] Comment on above: Order Comment: Speci men Type: BLOOD SPECIMENOrdering Facility: [facility] Address: [address] [address] Performed By: #### 2 4323-8 ####[facility] LABCLIA [id number] [place] [address] Anion gap [Moles/Vol] 10 mmol/L Normal 9-18 [facility] Comment on above: Order Comment: Speci men Type: BLOOD SPECIMENOrdering Facility: [facility] Address: [address] [address] Performed By: #### 2 4323-8 ####[facility] LABCLIA [id number] [place] [address] AST [Catalytic activity/Vol] 12 U/L Low 13-35 [facility] Comment on above: Order Comment: Speci men Type: BLOOD SPECIMENOrdering Facility: [facility] Address: [address] [address] Performed By: #### 2 4323-8 ####[facility] LABCLIA [id number] [place] [address] Bilirubin [Mass/Vol] 0.2 mg/dL Normal 0.2-1.3 [facility] Comment on above: Order Comment: Speci men Type: BLOOD SPECIMENOrdering Facility: [facility] Address: [address] [address] Performed By: #### 2 4323-8 ####[facility] LABCLIA [id number] [place] [address] Calcium [Mass/Vol] 9.4 mg/dL Normal 8.5-10.2 [facility] Comment on above: Order Comment: Speci men Type: BLOOD SPECIMENOrdering Facility: [facility] Address: [address] [place] [address] Performed By: #### 2 4323-8 ####[facility] LABCLIA [id number] [place] [address] Chloride [Moles/Vol] 107 mmol/L High 97-105 [facility] Comment on above: Order Comment: Speci men Type: BLOOD SPECIMENOrdering Facility: [facility] Address: [address] [place] [address] Performed By: #### 2 4323-8 ####[facility] LABCLIA [id number] [place] [address] CO2 [Moles/Vol] 24 mmol/L Normal 22-30 [facility] Comment on above: Order Comment: Speci men Type: BLOOD SPECIMENOrdering Facility: [facility] Address: [address] [place] [address] Performed By: #### 2 4323-8 ####[facility] LABCLIA [id number] [place] [address] Creatinine [Mass/Vol] 0.71 mg/dL Normal 0.58-0.96 [facility] Comment on above: Order Comment: Speci men Type: BLOOD SPECIMENOrdering Facility: [facility] Address: [address] [place] [address] Performed By: #### 2 4323-8 ####[facility] LABCLIA [id number] [place] [address] Creatinine and Glomerular filtration rate.predicted panel (S/P/Bld) 109 mL/min/1.73m??? Normal >=60 [facility] Comment on above: Order Comment: Speci men Type: BLOOD SPECIMENOrdering Facility: [facility] Address: [address] [place] [address] Result Comment: Erin mated Glomerular Filtration Rate (eGFR) is calculated using the 2020 CKD-EPI creatinine equation. This equation utilizes serum creatinine, sex, and age as parameters. The creatinine assay has traceable calibration to isotope dilution-mass spectrometry. Refer to KDIGO guidelines for clinical interpretation. In patients with unstable renal function, e.g. those with acute kidney injury, the eGFR may not accurately reflect actual GFR. Performed By: #### 2 4323-8 ####[facility] LABCLIA [id number] [place] [address] Glucose [Mass/Vol] 60 mg/dL Low 74-99 [facility] Comment on above: Order Comment: Semaj cortés Type: BLOOD SPECIMENOrdering Facility: [facility] Address: [address] [address] Result Comment: The [place] Diabetes Association (ADA) provides guidance for cutoff values for fasting glucose and random glucose. The ADA defines fasting as no caloric intake for at least 8 hours. Fasting plasma glucose results between 100 to 125 mg/dL indicate increased risk for diabetes (prediabetes).Fasting plasma glucose results greater than or equal to 126 mg/dL meet the criteria for diagnosis of diabetes. In the absence of unequivocal hyperglycemia, results should be confirmed by repeat testing. In a patient with classic symptoms of hyperglycemia or hyperglycemic crisis, random plasma glucose results greater than or equal to 200 mg/dL meet the criteria for diagnosis of diabetes.Reference: Standards of Medical Care in Diabetes 2016, [place] Diabetes Association. Diabetes Care. 2016.39(Suppl 1). Performed By: #### 2 4323-8 ####[facility] LABCLIA [id number] [place] [address] Potassium [Moles/Vol] 4.0 mmol/L Normal 3.7-5.1 [facility] Comment on above: Order Comment: Semaj cortés Type: BLOOD SPECIMENOrdering Facility: [facility] Address: [address] [address] Performed By: #### 2 4323-8 ####[facility] LABCLIA [id number] [place] [address] Protein [Mass/Vol] 6.7 g/dL Normal 6.3-8.0 [facility] Comment on above: Order Comment: Semaj cortés Type: BLOOD SPECIMENOrdering Facility: [facility] Address: [address] [address] Performed By: #### 2 4323-8 ####[facility] LABCLIA [id number] [place] [address] Sodium [Moles/Vol] 141 mmol/L Normal 136-144 [facility] Comment on above: Order Comment: Speci men Type: BLOOD SPECIMENOrdering Facility: [facility] Address: [address] [place] [address] Performed By: #### 2 4323-8 ####[facility] LABCLIA [id number] [place] [address] Urea nitrogen [Mass/Vol] 13 mg/dL Normal 7-21 [facility] Comment on above: Order Comment: Speci men Type: BLOOD SPECIMENOrdering Facility: [facility] Address: [address] [place] [address] Performed By: #### 2 4323-8 ####[facility] LABCLIA [id number] [place] [address] ESR Westergren method (Bld) [Velocity]on 01-22-2023 ESR (Bld) [Velocity] 20 mm/h Normal 0-20 [facility] Comment on above: Order Comment: Speci men Type: BLOOD SPECIMENOrdering Facility: [facility] Address: [address] [place] [address] Performed By: #### 4 537-7 ####[facility] LABCLIA [id number] [place] [address] [place] CNNURSEon 12-29-2022 CNNURSE Normal [facility] CNPNon 12-18-2022 CNPN Normal [facility] CNPNon 12-16-2022 CNPN Normal [facility] CBC W Auto Differential pane l (Bld)on 12-08-2022 Basophils (Bld) [#/Vol] 0.06 10*3/uL Normal <0.11 [facility] Comment on above: Order Comment: Speci men Type: BLOOD SPECIMENOrdering Facility: [facility] Address: [address] [address] Performed By: #### 5 7021-8 ####[facility] LABCLIA [id number] [place] [address] Basophils/100 WBC (Bld) 0.4 % Normal [facility] Comment on above: Order Comment: Speci men Type: BLOOD SPECIMENOrdering Facility: [facility] Address: [address] [place] [address] Performed By: #### 5 7021-8 ####[facility] LABCLIA [id number] [place] [address] Differential cell count method Nom (Bld) Auto Normal [facility] Comment on above: Order Comment: Speci men Type: BLOOD SPECIMENOrdering Facility: [facility] Address: [address] [place] [address] Performed By: #### 5 7021-8 ####[facility] LABCLIA [id number] [place] [address] Eosinophils (Bld) [#/Vol] 0.11 10*3/uL Normal <0.46 [facility] Comment on above: Order Comment: Speci men Type: BLOOD SPECIMENOrdering Facility: [facility] Address: [address] [place] [address] Performed By: #### 5 7021-8 ####[facility] LABCLIA [id number] [place] [address] Eosinophils/100 WBC (Bld) 0.8 % Normal [facility] Comment on above: Order Comment: Speci men Type: BLOOD SPECIMENOrdering Facility: [facility] Address: [address] [place] [address] Performed By: #### 5 7021-8 ####[facility] LABCLIA [id number] [place] [address] Erythrocyte distribution width (RBC) [Ratio] 14.6 % Normal 11.5-15.0 [facility] Comment on above: Order Comment: Speci men Type: BLOOD SPECIMENOrdering Facility: [facility] Address: [address] [address] Performed By: #### 5 7021-8 ####[facility] LABCLIA [id number] [place] [address] Hematocrit (Bld) [Volume fraction] 42.0 % Normal 36.0-46.0 [facility] Comment on above: Order Comment: Speci men Type: BLOOD SPECIMENOrdering Facility: [facility] Address: [address] [place] [address] Performed By: #### 5 7021-8 ####[facility] LABCLIA [id number] [place] [address] Hemoglobin (Bld) [Mass/Vol] 13.3 g/dL Normal 11.5-15.5 [facility] Comment on above: Order Comment: Speci men Type: BLOOD SPECIMENOrdering Facility: [facility] Address: [address] [place] [address] Performed By: #### 5 7021-8 ####[facility] LABCLIA [id number] [place] [address] Immature granulocytes (Bld) [#/Vol] 0.11 10*3/uL High <0.10 [facility] Comment on above: Order Comment: Speci men Type: BLOOD SPECIMENOrdering Facility: [facility] Address: [address] [place] [address] Performed By: #### 5 7021-8 ####[facility] LABCLIA [id number] [place] [address] Immature granulocytes/100 WBC (Bld) 0.8 % Normal [facility] Comment on above: Order Comment: Speci men Type: BLOOD SPECIMENOrdering Facility: [facility] Address: [address] [address] Performed By: #### 5 7021-8 ####[facility] LABCLIA [id number] [place] [address] Lymphocytes (Bld) [#/Vol] 3.75 10*3/uL Normal 1.00-4.00 [facility] Comment on above: Order Comment: Speci men Type: BLOOD SPECIMENOrdering Facility: [facility] Address: [address] [place] [address] Performed By: #### 5 7021-8 ####[facility] LABCLIA [id number] [place] [address] Lymphocytes/100 WBC (Bld) 27.4 % Normal [facility] Comment on above: Order Comment: Speci men Type: BLOOD SPECIMENOrdering Facility: [facility] Address: [address] [place] [address] Performed By: #### 5 7021-8 ####[facility] LABCLIA [id number] [place] [address] MCH (RBC) [Entitic mass] 29.8 pg Normal 26.0-34.0 [facility] Comment on above: Order Comment: Speci men Type: BLOOD SPECIMENOrdering Facility: [facility] Address: [address] [place] [address] Performed By: #### 5 7021-8 ####[facility] LABCLIA [id number] [place] [address] MCHC (RBC) [Mass/Vol] 31.7 g/dL Normal 30.5-36.0 [facility] Comment on above: Order Comment: Speci men Type: BLOOD SPECIMENOrdering Facility: [facility] Address: [address] [place] [address] Performed By: #### 5 7021-8 ####[facility] LABIA [id number] [place] [address] MCV (RBC) [Entitic vol] 94.0 fL Normal 80.0-100.0 [facility] Comment on above: Order Comment: Speci men Type: BLOOD SPECIMENOrdering Facility: [facility] Address: [address] [address] Performed By: #### 5 7021-8 ####[facility] LABCLIA [id number] [place] [address] Monocytes (Bld) [#/Vol] 1.07 10*3/uL High <0.87 [facility] Comment on above: Order Comment: Speci men Type: BLOOD SPECIMENOrdering Facility: [facility] Address: [address] [place] [address] Performed By: #### 5 7021-8 ####[facility] LABCLIA [id number] [place] [address] Monocytes/100 WBC (Bld) 7.8 % Normal [facility] Comment on above: Order Comment: Speci men Type: BLOOD SPECIMENOrdering Facility: [facility] Address: [address] [place] [address] Performed By: #### 5 7021-8 ####[facility] LABCLIA [id number] [place] [address] Neutrophils (Bld) [#/Vol] 8.57 10*3/uL High 1.45-7.50 [facility] Comment on above: Order Comment: Speci men Type: BLOOD SPECIMENOrdering Facility: [facility] Address: [address] [place] [address] Performed By: #### 5 7021-8 ####[facility] LABCLIA [id number] [place] [address] Neutrophils/100 WBC (Bld) 62.8 % Normal [facility] Comment on above: Order Comment: Speci men Type: BLOOD SPECIMENOrdering Facility: [facility] Address: [address] [place] [address] Performed By: #### 5 7021-8 ####[facility] LABCLIA [id number] [place] [address] Nucleated RBC (Bld) [#/Vol] 10*3/uL Normal <0.01 [facility] Comment on above: Order Comment: Speci men Type: BLOOD SPECIMENOrdering Facility: [facility] Address: [address] [place] [address] Performed By: #### 5 7021-8 ####[facility] LABCLIA [id number] [place] [address] Nucleated RBC/100 WBC (Bld) [Ratio] 0.0 /100 WBC Normal [facility] Comment on above: Order Comment: Speci men Type: BLOOD SPECIMENOrdering Facility: [facility] Address: [address] [place] [address] Performed By: #### 5 7021-8 ####[facility] LABIA [id number] [place] [address] Platelet mean volume (Bld) [Entitic vol] 9.6 fL Normal 9.0-12.7 [facility] Comment on above: Order Comment: Speci men Type: BLOOD SPECIMENOrdering Facility: [facility] Address: [address] [place] [address] Performed By: #### 5 7021-8 ####[facility] LABCLIA [id number] [place] [address] Platelets (Bld) [#/Vol] 301 10*3/uL Normal 150-400 [facility] Comment on above: Order Comment: Speci men Type: BLOOD SPECIMENOrdering Facility: [facility] Address: [address] [place] [address] Performed By: #### 5 7021-8 ####[facility] LABIA [id number] [place] [address] RBC (Bld) [#/Vol] 4.47 10*6/uL Normal 3.90-5.20 [facility] Comment on above: Order Comment: Speci men Type: BLOOD SPECIMENOrdering Facility: [facility] Address: [address] [address] Performed By: #### 5 7021-8 ####[facility] LABCLIA [id number] [place] [address] WBC (Bld) [#/Vol] 13.67 10*3/uL High 3.70-11.00 [facility] Comment on above: Order Comment: Speci men Type: BLOOD SPECIMENOrdering Facility: [facility] Address: [address] [address] Performed By: #### 5 7021-8 ####[facility] LABCLIA [id number] [place] [address] CNPNon 12-08-2022 CNPN Normal [facility] metabolic 2000 panelon 12-08-2022 Albumin [Mass/Vol] 4.3 g/dL Normal 3.9-4.9 [facility] Comment on above: Order Comment: Speci men Type: BLOOD SPECIMENOrdering Facility: [facility] Address: [address] [address] Performed By: #### 2 4323-8 ####[facility] LABIA [id number] [place] [address] ALP [Catalytic activity/Vol] 63 U/L Normal 34-123 [facility] Comment on above: Order Comment: Speci men Type: BLOOD SPECIMENOrdering Facility: [facility] Address: [address] [address] Performed By: #### 2 4323-8 ####[facility] LABCLIA [id number] [place] [address] ALT [Catalytic activity/Vol] 19 U/L Normal 7-38 [facility] Comment on above: Order Comment: Speci men Type: BLOOD SPECIMENOrdering Facility: [facility] Address: [address] [address] Performed By: #### 2 4323-8 ####[facility] LABCLIA [id number] [place] [address] Anion gap [Moles/Vol] 5 mmol/L Low 9-18 [facility] Comment on above: Order Comment: Speci men Type: BLOOD SPECIMENOrdering Facility: [facility] Address: [address] [place] [address] Performed By: #### 2 4323-8 ####[facility] LABCLIA [id number] [place] [address] AST [Catalytic activity/Vol] 10 U/L Low 13-35 [facility] Comment on above: Order Comment: Speci men Type: BLOOD SPECIMENOrdering Facility: [facility] Address: [address] [place] [address] Performed By: #### 2 4323-8 ####[facility] LABCLIA [id number] [place] [address] Bilirubin [Mass/Vol] 0.2 mg/dL Normal 0.2-1.3 [facility] Comment on above: Order Comment: Speci men Type: BLOOD SPECIMENOrdering Facility: [facility] Address: [address] [place] [address] Performed By: #### 2 4323-8 ####[facility] LABCLIA [id number] [place] [address] Calcium [Mass/Vol] 9.9 mg/dL Normal 8.5-10.2 [facility] Comment on above: Order Comment: Speci men Type: BLOOD SPECIMENOrdering Facility: [facility] Address: [address] [place] [address] Performed By: #### 2 4323-8 ####[facility] LABCLIA [id number] [place] [address] Chloride [Moles/Vol] 106 mmol/L High 97-105 [facility] Comment on above: Order Comment: Speci men Type: BLOOD SPECIMENOrdering Facility: [facility] Address: [address] [address] Performed By: #### 2 4323-8 ####[facility] LABCLIA [id number] [place] [address] CO2 [Moles/Vol] 26 mmol/L Normal 22-30 [facility] Comment on above: Order Comment: Speci men Type: BLOOD SPECIMENOrdering Facility: [facility] Address: [address] [place] [address] Performed By: #### 2 4323-8 ####[facility] LABCLIA [id number] [place] [address] Creatinine [Mass/Vol] 0.80 mg/dL Normal 0.58-0.96 [facility] Comment on above: Order Comment: Speci men Type: BLOOD SPECIMENOrdering Facility: [facility] Address: [address] [place] [address] Performed By: #### 2 4323-8 ####[facility] LABCLIA [id number] [place] [address] ESTIMATED GLOMERULAR FILTRATION RATE 94 mL/min/1.73m??? Normal >=60 [facility] Comment on above: Order Comment: Speci men Type: BLOOD SPECIMENOrdering Facility: [facility] Address: [address] [place] [address] Result Comment: Erin mated Glomerular Filtration Rate (eGFR) is calculated using the 2020 CKD-EPI creatinine equation. This equation utilizes serum creatinine, sex, and age as parameters. The creatinine assay has traceable calibration to isotope dilution-mass spectrometry. Refer to KDIGO guidelines for clinical interpretation. In patients with unstable renal function, e.g. those with acute kidney injury, the eGFR may not accurately reflect actual GFR. Performed By: #### 2 4323-8 ####[facility] LABCLIA [id number] [place] [address] Glucose [Mass/Vol] 91 mg/dL Normal 74-99 [facility] Comment on above: Order Comment: Speci men Type: BLOOD SPECIMENOrdering Facility: [facility] Address: [address] [address] Result Comment: The [place] Diabetes Association (ADA) provides guidance for cutoff values for fasting glucose and random glucose. The ADA defines fasting as no caloric intake for at least 8 hours. Fasting plasma glucose results between 100 to 125 mg/dL indicate increased risk for diabetes (prediabetes).Fasting plasma glucose results greater than or equal to 126 mg/dL meet the criteria for diagnosis of diabetes. In the absence of unequivocal hyperglycemia, results should be confirmed by repeat testing. In a patient with classic symptoms of hyperglycemia or hyperglycemic crisis, random plasma glucose results greater than or equal to 200 mg/dL meet the criteria for diagnosis of diabetes.Reference: Standards of Medical Care in Diabetes 2016, [place] Diabetes Association. Diabetes Care. 2016.39(Suppl 1). Performed By: #### 2 4323-8 ####[facility] LABCLIA [id number] [place] [address] Potassium [Moles/Vol] 3.9 mmol/L Normal 3.7-5.1 [facility] Comment on above: Order Comment: Speci men Type: BLOOD SPECIMENOrdering Facility: [facility] Address: [address] [address] Performed By: #### 2 4323-8 ####[facility] LABCLIA [id number] [place] [address] Protein [Mass/Vol] 7.1 g/dL Normal 6.3-8.0 [facility] Comment on above: Order Comment: Speci men Type: BLOOD SPECIMENOrdering Facility: [facility] Address: [address] [address] Performed By: #### 2 4323-8 ####[facility] LABCLIA [id number] [place] [address] Sodium [Moles/Vol] 137 mmol/L Normal 136-144 [facility] Comment on above: Order Comment: Speci men Type: BLOOD SPECIMENOrdering Facility: [facility] Address: [address] [address] Performed By: #### 2 4323-8 ####[facility] LABCLIA [id number] [place] [address] Urea nitrogen [Mass/Vol] 20 mg/dL Normal 7-21 [facility] Comment on above: Order Comment: Speci men Type: BLOOD SPECIMENOrdering Facility: [facility] Address: [address] [place] [address] Performed By: #### 2 4323-8 ####[facility] LABCLIA [id number] [place] [address] Ferritin SerPl-mCncon 2022 Ferritin [Mass/Vol] 26.6 ng/mL Normal 14.7-205.1 [facility] Comment on above: Order Comment: Speci men Type: BLOOD SPECIMENOrdering Facility: [facility] Address: [address] [place] [address] Performed By: #### 5 0190-8, 2131-9, 6-4, 2284-8 ####[facility] LABIA [id number] [place] [address] [place] Folate SerPl-mCncon 12-09-19 23 Folate [Mass/Vol] 2.6 ng/mL Low >4.7 [facility] Comment on above: Order Comment: Speci men Type: BLOOD SPECIMENOrdering Facility: [facility] Address: [address] [place], [place] [address] Performed By: #### 5 0190-8, 2131-9, 6-4, 2283-8 ####[facility] LABIA [id number] [place] [address] [place] Iron and Iron binding capaci ty panelon 12-08-2022 Iron [Mass/Vol] 48 ug/dL Normal 41-186 [facility] Comment on above: Order Comment: Speci men Type: BLOOD SPECIMENOrdering Facility: [facility] Address: [address] [place], [place] [address] Performed By: #### 5 0190-8, 9, 4, 8 ####[facility] LABCLIA [id number] [place] [address] [place] Iron binding capacity [Mass/Vol] 382 ug/dL Normal 232-386 [facility] Comment on above: Order Comment: Speci men Type: BLOOD SPECIMENOrdering Facility: [facility] Address: [address] [address] Performed By: #### 5 0190-8, 9, 4, 2283-12 ####[facility] LABIA [id number] [place] [address] [place] Iron/TIBC [Molar ratio] 12.6 % Low 15.0-57.0 [facility] Comment on above: Order Comment: Speci men Type: BLOOD SPECIMENOrdering Facility: [facility] Address: [address] Performed By: #### 5 0190-8, 9, 2275-08, 2283-12 ####[facility] LABIA [id number] [place] [address] [place] Vit B12 [facility] 07-18-2 023 Cobalamin (Vitamin B12) [Mass/Vol] 336 pg/mL Normal 232-1245 [facility] Comment on above: Order Comment: Speci men Type: BLOOD SPECIMENOrdering Facility: [facility] Address: [address] Performed By: #### 5 0190-8, 9, 2275-08, 2283-12 ####[facility] LABCLIA [id number] [place] [id number] [place] CNNURSEon 11-19-2022 CNNURSE Normal [facility] CNPNon 10-31-2022 CNPN Normal [facility] CNNURSEon 10-22-2022 CNNURSE Normal [facility] CNOVSPon 10-22-2022 CNOVSP Normal [facility] TPMT PHENOTYPE/ENZYME ACTIVI TYon 10-22-2022 TPMT ACTIVITY 33.5 U/mL Normal 24.0-44.0 [facility] Comment on above: Order Comment: Speci men Type: BLOOD SPECIMENOrdering Facility: [facility] Address: [address] [place] [id number] Result Comment: INTE RPRETIVE INFORMATION: Thiopurine Methyltransferase, RBCNormal TPMT activity:24.0-44.0 U/mL................Individuals are predicted to be atlow risk of bone marrow toxicity (myelosuppression) as aconsequence of standard thiopurine therapy; no dose adjustment isrecommended.Intermediate TPMT activity:17.0-23.9 U/mL................Individuals are predicted to be at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 risk of bone marrow toxicity (myelosuppression) as aconsequence of standard thiopurine therapy; a dose reduction andtherapeutic drug management is recommended.Low TPMT activity:less than 17.0 U/mL...........Individuals are predicted to be athigh risk of bone marrow toxicity (myelosuppression) as aconsequence of standard thiopurine dosing. It is recommended toavoid the use of thiopurine drugs.High TPMT activity:greater than 44.0 U/mL........Individuals are not predicted to beat risk for bone marrow toxicity (myelosuppression) as aconsequence of standard thiopurine dosing, but may be at risk fortherapeutic failure due to excessive inactivation of thiopurinedrugs. Individuals may require higher than the normal standarddose. Therapeutic drug management is recommended.The TPMT, RBC assay is used as a screen to detect individuals withlow and 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 TPMT activity who may be at risk formyelosuppression when exposed to standard doses of thiopurines,including 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 (Imuran) and 6-mercaptopurine (Purinethol).TPMT is the primary metabolic route for inactivation of thiopurinedrugs in the bone marrow. When TPMT activity is low, it ispredicted that proportionately more 6-mercaptopurine can beconverted into the cytotoxic 6-thioguanine nucleotides thataccumulate in the bone marrow causing excessive toxicity. Theactivity of TPMT is measured by the nanomoles of6-methylmercaptopurine (inactive metabolite) produced per 1 mL ofpacked red blood cells, (U/mL).TPMT phenotype testing does not replace the need for clinicalmonitoring of patients treated with thiopurine drugs. Genotype forTPMT cannot be inferred from TPMT activity (phenotype). Phenotypetesting should not be requested for patients currently treatedwith thiopurine drugs. Current TPMT phenotype may not reflectfuture TPMT phenotype, particularly in patients who received bloodtransfusion within 30-60 days of testing. TPMT enzyme activitycan be inhibited by several drugs such as: naproxen (Aleve),ibuprofen (Advil, Motrin), ketoprofen (Orudis), furosemide(Lasix), sulfasalazine (Azulfidine), mesalamine (Asacol),olsalazine (Dipentum), mefenamic acid (Ponstel), thiazidediuretics, and benzoic acid inhibitors. TPMT inhibitors maycontribute to falsely low results; patients should abstain fromthese drugs for at least 48 hours prior to TPMT testing. Falselylow results may also occur as a result of inappropriate specimenhandling and hemolysis.This test was developed and its performance characteristicsdetermined by [facility]. It has not been cleared orapproved by the [place] Food and Drug Administration. This test wasperformed in a CLIA certified laboratory and is intended forclinical purposes.Performed By: [facility] [place], [place] [address]Zbbolqtyrj Director: Ole Love MD, PhD Performed By: #### T PMT ####[facility] [id number] [place] [address] CNPNon 10-16-2022 CNPN Normal [facility] 25(OH)D3 [facility] 2022 25-hydroxyvitamin D3 [Mass/Vol] 28.3 ng/mL Low 31.0-80.0 [facility] Comment on above: Order Comment: Speci men Type: BLOOD SPECIMENOrdering Facility: [facility] Address: [address] [address] Result Comment: Clas sification of 25 [place] Vitamin D status:Deficiency/Insufficiency: < or = 30 ng/ml.Sufficiency/Optimal Levels: 31-80 ng/mLToxicity: > 100 ng/mL.Test performed by chemiluminescent immunoassay. Performed By: #### 1 989-3 ####[facility] LABCLIA [id number] [facility] [id number] STATES OF [facility] CBC W Auto Differential pane l (Bld)on 10-15-2022 Basophils (Bld) [#/Vol] 0.07 10*3/uL Normal <0.11 [facility] Comment on above: Order Comment: Speci men Type: BLOOD SPECIMENOrdering Facility: [facility] Address: [address] [place] [address] Performed By: #### 5 7021-8 ####[facility] LABCLIA [id number] [place] [address] Basophils/100 WBC (Bld) 0.6 % Normal [facility] Comment on above: Order Comment: Speci men Type: BLOOD SPECIMENOrdering Facility: [facility] Address: [address] [place] [address] Performed By: #### 5 7021-8 ####[facility] LABCLIA [id number] [place] [address] Differential cell count method Nom (Bld) Auto Normal [facility] Comment on above: Order Comment: Speci men Type: BLOOD SPECIMENOrdering Facility: [facility] Address: [address] [place] [address] Performed By: #### 5 7021-8 ####[facility] LABCLIA [id number] [place] [address] Eosinophils (Bld) [#/Vol] 0.16 10*3/uL Normal <0.46 [facility] Comment on above: Order Comment: Speci men Type: BLOOD SPECIMENOrdering Facility: [facility] Address: [address] [place] [address] Performed By: #### 5 7021-8 ####[facility] LABCLIA [id number] [place] [address] Eosinophils/100 WBC (Bld) 1.3 % Normal [facility] Comment on above: Order Comment: Speci men Type: BLOOD SPECIMENOrdering Facility: [facility] Address: [address] [place] [address] Performed By: #### 5 7021-8 ####[facility] LABIA [id number] [place] [address] Erythrocyte distribution width (RBC) [Ratio] 14.6 % Normal 11.5-15.0 [facility] Comment on above: Order Comment: Speci men Type: BLOOD SPECIMENOrdering Facility: [facility] Address: [address] [place] [address] Performed By: #### 5 7021-8 ####[facility] LABIA [id number] [place] [address] Hematocrit (Bld) [Volume fraction] 40.8 % Normal 36.0-46.0 [facility] Comment on above: Order Comment: Speci men Type: BLOOD SPECIMENOrdering Facility: [facility] Address: [address] [place] [address] Performed By: #### 5 7021-8 ####[facility] LABIA [id number] [place] [address] Hemoglobin (Bld) [Mass/Vol] 13.1 g/dL Normal 11.5-15.5 [facility] Comment on above: Order Comment: Speci men Type: BLOOD SPECIMENOrdering Facility: [facility] Address: [address] [place] [address] Performed By: #### 5 7021-8 ####[facility] LABCLIA [id number] [place] [address] Immature granulocytes (Bld) [#/Vol] 0.07 10*3/uL Normal <0.10 [facility] Comment on above: Order Comment: Speci men Type: BLOOD SPECIMENOrdering Facility: [facility] Address: [address] [place] [address] Performed By: #### 5 7021-8 ####[facility] LABCLIA [id number] [place] [address] Immature granulocytes/100 WBC (Bld) 0.6 % Normal [facility] Comment on above: Order Comment: Speci men Type: BLOOD SPECIMENOrdering Facility: [facility] Address: [address] [place] [address] Performed By: #### 5 7021-8 ####[facility] LABCLIA [id number] [place] [address] Lymphocytes (Bld) [#/Vol] 3.62 10*3/uL Normal 1.00-4.00 [facility] Comment on above: Order Comment: Speci men Type: BLOOD SPECIMENOrdering Facility: [facility] Address: [address] [place] [address] Performed By: #### 5 7021-8 ####[facility] LABCLIA [id number] [place] [address] Lymphocytes/100 WBC (Bld) 30.3 % Normal [facility] Comment on above: Order Comment: Speci men Type: BLOOD SPECIMENOrdering Facility: [facility] Address: [address] [place] [address] Performed By: #### 5 7021-8 ####[facility] LABCLIA [id number] [place] [address] MCH (RBC) [Entitic mass] 29.2 pg Normal 26.0-34.0 [facility] Comment on above: Order Comment: Speci men Type: BLOOD SPECIMENOrdering Facility: [facility] Address: [address] [address] Performed By: #### 5 7021-8 ####[facility] LABCLIA [id number] [place] [address] MCHC (RBC) [Mass/Vol] 32.1 g/dL Normal 30.5-36.0 [facility] Comment on above: Order Comment: Speci men Type: BLOOD SPECIMENOrdering Facility: [facility] Address: [address] [place] [address] Performed By: #### 5 7021-8 ####[facility] LABIA [id number] [place] [address] MCV (RBC) [Entitic vol] 90.9 fL Normal 80.0-100.0 [facility] Comment on above: Order Comment: Speci men Type: BLOOD SPECIMENOrdering Facility: [facility] Address: [address] [place] [address] Performed By: #### 5 7021-8 ####[facility] LABIA [id number] [place] [address] Monocytes (Bld) [#/Vol] 0.66 10*3/uL Normal <0.87 [facility] Comment on above: Order Comment: Speci men Type: BLOOD SPECIMENOrdering Facility: [facility] Address: [address] [place] [address] Performed By: #### 5 7021-8 ####[facility] LABCLIA [id number] [place] [address] Monocytes/100 WBC (Bld) 5.5 % Normal [facility] Comment on above: Order Comment: Speci men Type: BLOOD SPECIMENOrdering Facility: [facility] Address: [address] [place] [address] Performed By: #### 5 7021-8 ####[facility] LABCLIA [id number] [place] [address] Neutrophils (Bld) [#/Vol] 7.35 10*3/uL Normal 1.45-7.50 [facility] Comment on above: Order Comment: Speci men Type: BLOOD SPECIMENOrdering Facility: [facility] Address: [address] [place] [address] Performed By: #### 5 7021-8 ####[facility] LABCLIA [id number] [place] [address] Neutrophils/100 WBC (Bld) 61.7 % Normal [facility] Comment on above: Order Comment: Speci men Type: BLOOD SPECIMENOrdering Facility: [facility] Address: [address] [place] [address] Performed By: #### 5 7021-8 ####[facility] LABCLIA [id number] [place] [address] Nucleated RBC (Bld) [#/Vol] 10*3/uL Normal <0.01 [facility] Comment on above: Order Comment: Speci men Type: BLOOD SPECIMENOrdering Facility: [facility] Address: [address] [place] [address] Performed By: #### 5 7021-8 ####[facility] LABCLIA [id number] [place] [address] Nucleated RBC/100 WBC (Bld) [Ratio] 0.0 /100 WBC Normal [facility] Comment on above: Order Comment: Speci men Type: BLOOD SPECIMENOrdering Facility: [facility] Address: [address] [place] [address] Performed By: #### 5 7021-8 ####[facility] LABCLIA [id number] [place] [address] Platelet mean volume (Bld) [Entitic vol] 9.7 fL Normal 9.0-12.7 [facility] Comment on above: Order Comment: Speci men Type: BLOOD SPECIMENOrdering Facility: [facility] Address: [address] Performed By: #### 5 7021-8 ####[facility] LABCLIA [id number] [place] [address] Platelets (Bld) [#/Vol] 295 10*3/uL Normal 150-400 [facility] Comment on above: Order Comment: Speci men Type: BLOOD SPECIMENOrdering Facility: [facility] Address: [address] [address] Performed By: #### 5 7021-8 ####[facility] LABCLIA [id number] [place] [address] RBC (Bld) [#/Vol] 4.49 10*6/uL Normal 3.90-5.20 [facility] Comment on above: Order Comment: Speci men Type: BLOOD SPECIMENOrdering Facility: [facility] Address: [address] [address] Performed By: #### 5 7021-8 ####[facility] LABIA [id number] [place] [address] WBC (Bld) [#/Vol] 11.93 10*3/uL High 3.70-11.00 [facility] Comment on above: Order Comment: Speci men Type: BLOOD SPECIMENOrdering Facility: [facility] Address: [address] [address] Performed By: #### 5 7021-8 ####[facility] LABCLIA [id number] [place] [address] CRP [facility] 10-15-2022 CRP [Mass/Vol] 0.3 mg/dL Normal <0.9 [facility] Comment on above: Order Comment: Speci men Type: BLOOD SPECIMENOrdering Facility: [facility] Address: [address] [place] [address] Performed By: #### 1 988-5, 2885-2, 2132-9 ####[facility] LABCLIA [id number] [place]I [id number] [address] [place] Comprehensive metabolic 2000 panelon 10-15-2022 Albumin [Mass/Vol] 4.0 g/dL Normal 3.9-4.9 [facility] Comment on above: Order Comment: Speci men Type: BLOOD SPECIMENOrdering Facility: [facility] Address: [address] [place] [address] Performed By: #### 2 532-0, 12809-0 ####[facility] LABCLIA [id number] [place] [address] ALP [Catalytic activity/Vol] 59 U/L Normal 34-123 [facility] Comment on above: Order Comment: Speci men Type: BLOOD SPECIMENOrdering Facility: [facility] Address: [address] [place] [address] Performed By: #### 2 532-0, 68146-9 ####[facility] LABIA [id number] [place] [address] ALT [Catalytic activity/Vol] 19 U/L Normal 7-38 [facility] Comment on above: Order Comment: Speci men Type: BLOOD SPECIMENOrdering Facility: [facility] Address: [address] [place] [address] Performed By: #### 2 532-0, 53932-2 ####[facility] LABIA [id number] [place] [address] Anion gap [Moles/Vol] 12 mmol/L Normal 9-18 [facility] Comment on above: Order Comment: Speci men Type: BLOOD SPECIMENOrdering Facility: [facility] Address: [address] [place] [address] Performed By: #### 2 532-0, 50009-7 ####[facility] LABIA [id number] [place] [address] AST [Catalytic activity/Vol] 10 U/L Low 13-35 [facility] Comment on above: Order Comment: Speci men Type: BLOOD SPECIMENOrdering Facility: [facility] Address: [address] [address] Performed By: #### 2 532-0, ####[facility] LABCLIA [id number] [place] [address] Bilirubin [Mass/Vol] 0.2 mg/dL Normal 0.2-1.3 [facility] Comment on above: Order Comment: Speci men Type: BLOOD SPECIMENOrdering Facility: [facility] Address: [address] [address] Performed By: #### 2 532-0, ####[facility] LABIA [id number] [place] [address] Calcium [Mass/Vol] 9.6 mg/dL Normal 8.5-10.2 [facility] Comment on above: Order Comment: Speci men Type: BLOOD SPECIMENOrdering Facility: [facility] Address: [address] [address] Performed By: #### 2 532-0, ####[facility] LABIA [id number] [place] [address] Chloride [Moles/Vol] 104 mmol/L Normal 97-105 [facility] Comment on above: Order Comment: Speci men Type: BLOOD SPECIMENOrdering Facility: [facility] Address: [address] [address] Performed By: #### 2 532-0, ####[facility] LABIA [id number] [place] [address] CO2 [Moles/Vol] 21 mmol/L Low 22-30 [facility] Comment on above: Order Comment: Speci men Type: BLOOD SPECIMENOrdering Facility: [facility] Address: [address] [address] Performed By: #### 2 532-0, ####[facility] LABCLIA [id number] [place] [address] Creatinine [Mass/Vol] 0.72 mg/dL Normal 0.58-0.96 [facility] Comment on above: Order Comment: Semaj cortés Type: BLOOD SPECIMENOrdering Facility: [facility] Address: [address] [place] [address] Performed By: #### 2 532-0, 40438-9 ####[facility] LABCLIA [id number] [place] [address] ESTIMATED GLOMERULAR FILTRATION RATE 107 mL/min/1.73m??? Normal >=60 [facility] Comment on above: Order Comment: Semaj cortés Type: BLOOD SPECIMENOrdering Facility: [facility] Address: [address] [place] [address] Result Comment: Erin mated Glomerular Filtration Rate (eGFR) is calculated using the 2020 CKD-EPI creatinine equation. This equation utilizes serum creatinine, sex, and age as parameters. The creatinine assay has traceable calibration to isotope dilution-mass spectrometry. Refer to KDIGO guidelines for clinical interpretation. In patients with unstable renal function, e.g. those with acute kidney injury, the eGFR may not accurately reflect actual GFR. Performed By: #### 2 532-0, 07061-4 ####[facility] LABCLIA [id number] [place] [address] Glucose [Mass/Vol] 157 mg/dL High 74-99 [facility] Comment on above: Order Comment: Semaj cortés Type: BLOOD SPECIMENOrdering Facility: [facility] Address: [address] [place] [address] Result Comment: The [place] Diabetes Association (ADA) provides guidance for cutoff values for fasting glucose and random glucose. The ADA defines fasting as no caloric intake for at least 8 hours. Fasting plasma glucose results between 100 to 125 mg/dL indicate increased risk for diabetes (prediabetes).Fasting plasma glucose results greater than or equal to 126 mg/dL meet the criteria for diagnosis of diabetes. In the absence of unequivocal hyperglycemia, results should be confirmed by repeat testing. In a patient with classic symptoms of hyperglycemia or hyperglycemic crisis, random plasma glucose results greater than or equal to 200 mg/dL meet the criteria for diagnosis of diabetes.Reference: Standards of Medical Care in Diabetes 2016, [place] Diabetes Association. Diabetes Care. 2016.39(Suppl 1). Performed By: #### 2 532-0, ####[facility] LABCLIA [id number] [place] [address] Potassium [Moles/Vol] 3.8 mmol/L Normal 3.7-5.1 [facility] Comment on above: Order Comment: Speci men Type: BLOOD SPECIMENOrdering Facility: [facility] Address: [address] [address] Performed By: #### 2 532-0, ####[facility] LABIA [id number] [place] [address] Protein [Mass/Vol] 6.8 g/dL Normal 6.3-8.0 [facility] Comment on above: Order Comment: Speci men Type: BLOOD SPECIMENOrdering Facility: [facility] Address: [address] [address] Performed By: #### 2 532-0, ####[facility] LABIA [id number] [place] [address] Sodium [Moles/Vol] 137 mmol/L Normal 136-144 [facility] Comment on above: Order Comment: Speci men Type: BLOOD SPECIMENOrdering Facility: [facility] Address: [address] [address] Performed By: #### 2 532-0, ####[facility] LABIA [id number] [place] [address] Urea nitrogen [Mass/Vol] 16 mg/dL Normal 7-21 [facility] Comment on above: Order Comment: Speci men Type: BLOOD SPECIMENOrdering Facility: [facility] Address: [address] [address] Performed By: #### 2 532-0, 60510-7 ####[facility] LABIA [id number] [place] [address] ESR Westergren method (Bld) [Velocity]on 10-15-2022 ESR (Bld) [Velocity] 27 mm/h High 0-20 [facility] Comment on above: Order Comment: Speci men Type: BLOOD SPECIMENOrdering Facility: [facility] Address: [address] [place] [address] Performed By: #### 4 537-7 ####[facility] LABIA [id number] [address] IMMUNOFIXATION SCREEN, SERUM on 10-15-2022 MPA RESULT No M protein is identified. Normal No M protein is identified. [facility] Comment on above: Order Comment: Speci men Type: BLOOD SPECIMENOrdering Facility: [facility] Address: [address] [place] [address] Performed By: #### I FES ####[facility] LABIA [id number] [address] OF [place] STAFF REVIEW (MPA) Reviewed by Chapito holt MD, Ph.D ([id number]) Normal [facility] Comment on above: Order Comment: Speci men Type: BLOOD SPECIMENOrdering Facility: [facility] Address: [address] [place], [place] [address] Performed By: #### I FESC ####[facility] LABIA [id number] [place] [id number] [place] IMMUNOGLOBULINS GAMon 2022 IgA [Mass/Vol] 184 mg/dL Normal 70-400 [facility] Comment on above: Order Comment: Speci men Type: BLOOD SPECIMENOrdering Facility: [facility] Address: [address] [address] Performed By: #### S ERIMM ####[facility] LABCLIA [id number] [place] [address] [place] IgG [Mass/Vol] 540 mg/dL Low 700-1600 [facility] Comment on above: Order Comment: Speci men Type: BLOOD SPECIMENOrdering Facility: [facility] Address: [address] [place] [address] Performed By: #### S ERIMM ####[facility] LABCLIA [id number] [address] [place] IgM [Mass/Vol] 504 mg/dL High 40-230 [facility] Comment on above: Order Comment: Speci men Type: BLOOD SPECIMENOrdering Facility: [facility] Address: [address] [place] [address] Performed By: #### S ERIMM ####[facility] LABIA [id number] [place] [address] [place] KAPPA/FARMER,FREE,SERon 2022 Immunoglobulin light chains.kappa.free (S) [Mass/Vol] 14.2 mg/L Normal 3.3-19.4 [facility] Comment on above: Order Comment: Speci men Type: BLOOD SPECIMENOrdering Facility: [facility] Address: [address] [place] [address] Result Comment: Rare ly, increased serum free light chains levels may not be detected or accurately quantified due to prozone phenomenon or in high viscosity samples using this immunoturbidimetric assay. Correlation with other laboratory results and clinical findings is recommended.The Ney Free Light Chain was performed using the Binding Site Optilite immunoturbidimetric method. Result obtained with different assay methods or kits cannot be used interchangeably. Performed By: #### K LFRS ####[facility] LABIA [id number] [address] [place] Immunoglobulin light chains.kappa/Immunog lobulin light chains.lambda (S) [Mass ratio] 1.34 Normal 0.26-1.65 [facility] Comment on above: Order Comment: Speci men Type: BLOOD SPECIMENOrdering Facility: [facility] Address: [address] [place] [address] Performed By: #### K LFRS ####[facility] LABCLIA [id number] [place] [address] [place] Immunoglobulin light chains.lambda.free [Mass/Vol] 10.6 mg/L Normal 5.7-26.3 [facility] Comment on above: Order Comment: Speci men Type: BLOOD SPECIMENOrdering Facility: [facility] Address: [address] [place] [address] Result Comment: Rare ly, increased serum free light chains levels may not be detected or accurately quantified due to prozone phenomenon or in high viscosity samples using this immunoturbidimetric assay. Correlation with other laboratory results and clinical findings is recommended.The Lambda Free Light Chain was performed using the Binding Site Optilite immunoturbidimetric method. Result obtained with different assay methods or kits cannot be used interchangeably. Performed By: #### K LFRS ####[facility] LABIA [id number] [place] [address] [place] LDH SerPl-cCncon 10-15-2022 LDH [Catalytic activity/Vol] 155 U/L Normal 135-214 [facility] Comment on above: Order Comment: Speci men Type: BLOOD SPECIMENOrdering Facility: [facility] Address: [address] [place] [address] Performed By: #### 2 532-0, 17244-9 ####[facility] LABCLIA [id number] [place] [address] PROTEIN ELECTROPHORESIS SERU M WITH DANA (P)on 10-15-2022 Albumin [Mass/Vol] 3.92 g/dL Normal 3.43-5.41 [facility] Comment on above: Order Comment: Speci men Type: BLOOD SPECIMENOrdering Facility: [facility] Address: [address] [place] [address] Performed By: #### L [id number] ####[facility] LABIA [id number] [address] [place] Alpha 1 globulin Elph [Mass/Vol] 0.34 g/dL Normal 0.18-0.43 [facility] Comment on above: Order Comment: Speci men Type: BLOOD SPECIMENOrdering Facility: [facility] Address: [address] [place], [place] [address] Performed By: #### L [id number] ####[facility] [id number] [address] [place] Alpha 2 globulin Elph [Mass/Vol] 0.84 g/dL Normal 0.42-0.98 [facility] Comment on above: Order Comment: Speci men Type: BLOOD SPECIMENOrdering Facility: [facility] Address: [address] [place], [place] [address] Performed By: #### L [id number] ####[facility] [id number] [address] [place] Beta globulin Elph [Mass/Vol] 0.92 g/dL Normal 0.61-1.17 [facility] Comment on above: Order Comment: Speci men Type: BLOOD SPECIMENOrdering Facility: [facility] Address: [address] [place], [place] [address] Performed By: #### L [id number] ####[facility] [id number] [place] [address] [place] COMMENT (SERUM PROT ELECTRO) Monoclonal Protein analysis (immunofixation) is not indicated. Normal [facility] Comment on above: Order Comment: Speci men Type: BLOOD SPECIMENOrdering Facility: [facility] Address: [address] [place], [place] [address] Performed By: #### L [id number] ####[facility] [id number] [place] [address] [place] Gamma globulin Elph [Mass/Vol] 0.68 g/dL Normal 0.53-1.51 [facility] Comment on above: Order Comment: Speci men Type: BLOOD SPECIMENOrdering Facility: [facility] Address: [address] [place] [address] Performed By: #### L [id number] ####[facility] LABCLIA [id number] [address] [place] M-PROTEIN LOCATION Normal [facility] Comment on above: Order Comment: Speci men Type: BLOOD SPECIMENOrdering Facility: [facility] Address: [address] [place] [address] Result Comment: Not Applicable. Performed By: #### L [id number] ####[facility] LABCLIA [id number] [address] [place] Protein Fractions [Interp] No definitive M protein is identified on protein electrophoresis. Normal No definitive M protein is identified on protein electrophore sis. [facility] Comment on above: Order Comment: Speci men Type: BLOOD SPECIMENOrdering Facility: [facility] Address: [address] [place] [address] Performed By: #### L [id number] ####[facility] LABCLIA [id number] [address] [place] Protein.monoclonal Elph [Mass/Vol] 0.00 g/dL Normal <=0.00 [facility] Comment on above: Order Comment: Speci men Type: BLOOD SPECIMENOrdering Facility: [facility] Address: [address] [place] [address] Performed By: #### L [id number] ####[facility] LABIA [id number] [place] [address] [place] SPE STAFF REVIEW Reviewed by Chapito holt MD, Ph.D ([id number]) Normal [facility] Comment on above: Order Comment: Speci men Type: BLOOD SPECIMENOrdering Facility: [facility] Address: [address] [address] Performed By: #### L [id number] ####[facility] LABCLIA [id number] [address] Prot SerPl-mCncon 10-15-2022 Protein [Mass/Vol] 6.7 g/dL Normal 6.3-8.0 [facility] Comment on above: Order Comment: Speci men Type: BLOOD SPECIMENOrdering Facility: [facility] Address: [address] [address] Performed By: #### 1 988-5, 28809-22, 2132-01 ####[facility] LABIA [id number] [address] Vit B12 [facility] 023 Cobalamin (Vitamin B12) [Mass/Vol] 368 pg/mL Normal 232-1245 [facility] Comment on above: Order Comment: Speci men Type: BLOOD SPECIMENOrdering Facility: [facility] Address: [address] [address] Performed By: #### 1 988-5, 28809-22, 2132-01 ####[facility] [id number] [address] [place] CBC AUTO DIFFon 09-24-2022 BASO # 0.1 103/ul Normal 0.0-0.1 [facility] Comment on above: Performed By: #### U AMIC #### [facility] [address] [address] [address] Manda York Basophils/100 WBC (Bld) 0.6 % Normal 0.2-2.0 [facility] Comment on above: Performed By: #### U AMIC #### [facility] [address] [address] [address] Manda York EO # 0.1 103/ul Normal 0.0-0.7 [facility] Comment on above: Performed By: #### U AMIC #### [facility] [address] [address] [address] Manda York Eosinophils/100 WBC (Bld) 0.6 % Critically low 0.9-7.0 [facility] Comment on above: Performed By: #### U AMIC #### [facility] [address] [place] [address] Dr. Manda York Erythrocyte distribution width (RBC) [Ratio] 14.6 % Normal 11.0-15.0 [facility] Comment on above: Performed By: #### U AMIC #### [facility] [address] [place] [address] Dr. Manda York Hematocrit (Bld) [Volume fraction] 43.4 % Normal 36.0-48.0 [facility] Comment on above: Performed By: #### U AMIC #### [facility] [address] [place] [address] Dr. Manda York Hemoglobin (Bld) [Mass/Vol] 13.7 g/dL Normal 12.0-16.0 [facility] Comment on above: Performed By: #### U AMIC #### [facility] [address] [place] [address] Dr. Manda York IG # 0.12 10e3/ul Critically high 0.00-0.03 [facility] Comment on above: Performed By: #### U AMIC #### [facility] [address] [place] [address] Dr. Manda York IG % 0.8 % Critically high 0.0-0.5 [facility] Comment on above: Performed By: #### U AMIC #### [facility] [address] [place] [address] Dr. Manda York LYMPH # 2.6 103/ul Normal 1.2-3.8 [facility] Comment on above: Performed By: #### U AMIC #### [facility] [address] [place] [address] Dr. Manda York Lymphocytes/100 WBC (Bld) 18.3 % Critically low 20.5-60.0 [facility] Comment on above: Performed By: #### U AMIC #### [facility] [address] [place] [address] Dr. Manda York MANUAL DIFF REQ NO Normal [facility] Comment on above: Performed By: #### U AMIC #### [facility] [address] [place] [address] Dr. Manda York MCH (RBC) [Entitic mass] 29.0 pg Normal 26.7-34.0 [facility] Comment on above: Performed By: #### U AMIC #### [facility] [address] [place] [address] Dr. Manda York MCHC (RBC) [Mass/Vol] 31.6 g/dL Normal 29.9-35.2 [facility] Comment on above: Performed By: #### U AMIC #### [facility] [address] [place] [address] Dr. Manda York MCV (RBC) [Entitic vol] 91.8 fL Normal 81.0-99.0 [facility] Comment on above: Performed By: #### U AMIC #### [facility] [address] [place] [address] Dr. Manda York MONO # 0.7 103/ul Normal 0.3-0.8 [facility] Comment on above: Performed By: #### U AMIC #### [facility] [address] [place] [address] Dr. Manda York Monocytes/100 WBC (Bld) 5.1 % Normal 1.7-12.0 [facility] Comment on above: Performed By: #### U AMIC #### [facility] [address] [place] [address] Dr. Manda York NEUT # 10.6 103/ul Critically high 1.4-6.5 [facility] Comment on above: Performed By: #### U AMIC #### [facility] [address] [place] [address] Dr. Manda York Neutrophils/100 WBC (Bld) 74.6 % Normal 43.0-75.0 [facility] Comment on above: Performed By: #### U AMIC #### [facility] [address] [address] [address] Manda York Platelet mean volume (Bld) [Entitic vol] 9.4 fL Critically low 9.5-13.5 [facility] Comment on above: Performed By: #### U AMIC #### [facility] [address] [address] [address] Manda York PLT 307 103/ul Normal 150-450 [facility] Comment on above: Performed By: #### U AMIC #### [facility] [address] [address] [address] Manda York RBC 4.73 106/ul Normal 4.20-5.40 [facility] Comment on above: Performed By: #### U AMIC #### [facility] [address] [address] [address] Manda York WBC 14.2 103/ul Critically high 4.0-11.0 [facility] Comment on above: Performed By: #### U AMIC #### [facility] [address] [address] [address] Manda York CNNURSEon 09-24-2022 CNNURSE Normal [facility] FREE T4on 09-24-2022 Free T4 [Mass/Vol] 1.31 ng/dL Normal 0.76-1.46 [facility] Comment on above: Performed By: #### F T4 #### [facility] [address] [address] [address] Manda York GLYCOHEMOGLOBIN A1Con 2022 ADA RECOMMENDATION SEE BELOW Normal [facility] Comment on above: Result Comment: ADA RECOMMENDED LIMIT 4.0 - 6.0 ADA THERAPEUTIC TARGET < 7.0 ACTION SUGGESTED > 7.0 Performed By: #### A 1C #### [facility] [address] [place] [address] Dr. Manda York Glucose [Mass/Vol] 120 mg/dL Normal [facility] Comment on above: Performed By: #### A 1C #### [facility] [address] [place] [address] Dr. Manda York HbA1c (Bld) [Mass fraction] 5.8 % Normal 4.5-6.2 [facility] Comment on above: Performed By: #### A 1C #### [facility] [address] [place] [address] Dr. Manda York PREG QUANT HCGon 09-24-2022 HCG QUANT <1 Normal [facility] Comment on above: Performed By: #### F T4 #### [facility] [address] [place] [address] Dr. Manda York HCG RANGE SEE BELOW Normal [facility] Comment on above: Result Comment: 5-50 0.2-1 WEEK 50-500 1-2 WEEKS 100-5,000 2-3 WEEKS 500-10,000 3-4 WEEKS 1,000-50,000 4-5 WEEKS 10,000-100,000 5-6 WEEKS 15,000-200,000 6-8 WEEKS 10,000-100,000 2-3 MONTHS Performed By: #### F T4 #### [facility] [address] [place] [address] Dr. Manda York PROTIMEon 09-24-2022 INR Coag (PPP) [Relative time] {INR} Normal [facility] Comment on above: Performed By: #### F T4 #### [facility] [address] [place] [address] Dr. Manda York INR GUIDELINES SEE BELOW Normal [facility] Comment on above: Result Comment: SHERRY RED INR: 2.0 - 3.0 CONDITIONS NOT LISTED BELOW 2.5 - 3.5 FOR PROSTHETIC HEART VALVE REPLACEMENT 2.5 - 3.5 RECURRENT THROMBOSIS Performed By: #### F T4 #### [facility] [address] [place] [address] Dr. Manda York PT Coag (PPP) [Time] 9.6 s Normal 9.0-11.6 [facility] Comment on above: Performed By: #### F T4 #### [facility] [address] [place] [address] Dr. Manda York PTTon 09-24-2022 aPTT Coag (Bld) [Time] 28.2 s Normal 22.3-36.2 [facility] Comment on above: Performed By: #### F T4 #### [facility] [address] [address] [address] Manda York TSHon 09-24-2022 TSH 0.300 uIU/mL Critically low 0.358-3.740 [facility] Comment on above: Performed By: #### F T4 #### [facility] [address] [address] [address] Manda York US PELVIS TRANSVAGon 023 US PELVIS TRANSVAG EXAMINATION: US PELV IS TRANSVAG HISTORY: Excessive menstruation with irregular cycle COMPARISON: No relevant comparison available. FINDINGS: The uterus is normal in size and contour measuring 8.1 x 5.5 x 4.7 cm. Retroverted. Identified in the posterior myometrium is a focal 2.0 x 1.1 x 2.1 cm area of hypoechogenicity with multiple punctate areas of hyperechogenicity likely representing calcification The endometrium measures 12.3 mm, normal. The right ovary measures 1.9 x 1.4 x 1.6 cm. Normal color and Doppler flow The left ovary measures 3.4 x 1.8 x 2.4 cm. Normal color and Doppler flow. Area of anechoic echogenicity measuring 2.8 cm, simple cyst No free fluid . IMPRESSION: 2.1 cm posterior myometrial calcified mass. A fibroid is favored 2.8 cm left ovarian cyst Electronically authenticated by: AURORA SHAIKH Date: 2022-09-24 17:50 Normal [facility] PAP ACOG PANEL 2: 30 to 65on 09-18-2022 . . Normal [facility] Comment on above: Result Comment: Perf ormed at: WB Performed By: #### F T4 #### [facility] [address] [address] [address] Manda York Age Gdln ACOG Testing 30-65 Normal [facility] Comment on above: Performed By: #### F T4 #### [facility] [id number] Manda York DIAGNOSIS: Comment Normal [facility] Comment on above: Result Comment: NEGA TIVE FOR INTRAEPITHELIAL LESION OR MALIGNANCY. Performed at: WB Performed By: #### F T4 #### [facility] [address] [address] [address] Manda York HPV Aptima Negative Normal Negative [facility] Comment on above: Result Comment: This nucleic acid amplification test detects fourteen high-risk HPV types (16,18,31,33,35,39,45,51,52,56,58,59,66,68) without differentiation. Performed at: =G Performed By: #### F T4 #### [facility] [address] [address] [address] Manda York HPV Genotype Reflex Comment Normal [facility] Comment on above: Result Comment: Crit eria not met, HPV Genotype not performed. Performed at: WB Performed By: #### F T4 #### [facility] [address] [address] [address] Manda York Methodology: Comment Normal [facility] Comment on above: Result Comment: This liquid based ThinPrep(R) pap test was screened with the use of an image guided system. Performed at: WB Performed By: #### F T4 #### [facility] [address] [address] [address] Manda York Note: Comment Normal [facility] Comment on above: Result Comment: The Pap smear is a screening test designed to aid in the detection of premalignant and malignant conditions of the uterine cervix. It is not a diagnostic procedure and should not be used as the sole means of detecting cervical cancer. Both false-positive and false-negative reports do occur. . Performed at: WB Performed By: #### F T4 #### [facility] [address] [address] [address] Manda York Performed by: Comment Normal [facility] Comment on above: Result Comment: Lorena Peters, Oil Rigger (ASCP) Performed at: WB Performed By: #### F T4 #### [facility] [address] [address] [address] Manda York Specimen adequacy: Comment Normal [facility] Comment on above: Result Comment: Sati sfactory for evaluation. Endocervical and/or squamous metaplastic cells (endocervical component) are present. Performed at: WB Performed By: #### F T4 #### [facility] [address] [address] [address] Manda York CNPNon 09-08-2022 CNPN Normal [facility] MG MAMM SCREEN 3D MARK CADon 09-01-2022 MG MAMM SCREEN 3D MARK CAD Patient: JONES HALEY Exam Date: 09/01/2022 : 1980 Gender:F Ordering : DR MADELAINE FERRIS . Admission #: [id number] Family : Order #: [id number] CLICK HERE TO VIEW EXAM RADIOLOGY REPORT PROCEDURE: MAMMOGRAM SCREENING 3D BILATERAL CAD COMPARISON: MG MAMM SCREEN 3D MARK CAD, 12/05/2020. INDICATIONS: Screening mammography Calculator Name NCI Breast Cancer Risk Assessment Tool 5 Year Breast Cancer Risk 0.80% Lifetime Breast Cancer Risk 13.50% Personal Breast Cancer No Personal Ovarian Cancer No Treatments None Family Cancers Grandmother-paternal with breast cancer at age 67; Aunt-paternal with breast cancer at age 50; Father with stomach cancer at age 56. LOCATION: [facility] BREAST COMPOSITION: Scattered areas fibroglandular density. FINDINGS: DIAGNOSTIC CATEGORY 2--BENIGN FINDING: RIGHT BREAST: No significant suspicious finding. Scattered benign-appearing calcifications are present. Scattered benign-appearing lymph nodes are present. No significant change has occurred. LEFT BREAST: No significant suspicious finding. Scattered benign-appearing lymph nodes are present. No significant change has occurred. RECOMMENDATIONS: ROUTINE MAMMOGRAM AND CLINICAL EVALUATION IN 12 MONTHS. PLEASE NOTE: A NORMAL MAMMOGRAM DOES NOT EXCLUDE THE POSSIBILITY OF BREAST CANCER. A CLINICALLY SUSPICIOUS PALPABLE LUMP SHOULD BE BIOPSIED. Dictated by: Sayda Yusuf M.D. on 09/02/2022 at 12:26 Approved by: Sayda Yusuf M.D. on 09/02/2022 at 12:32 Normal [facility] CNNURSEon 08-27-2022 CNNURSE Normal [facility] CNOVSPon 08-27-2022 CNOVSP Normal [facility] CNPNon 08-19-2022 CNPN Normal [facility] 25(OH)D3 SerPl-mCncon 2022 25-hydroxyvitamin D3 [Mass/Vol] 33.1 ng/mL Normal 31.0-80.0 [facility] Comment on above: Order Comment: Speci men Type: BLOOD SPECIMENOrdering Facility: [facility] Address: [address] [id number] Result Comment: Clas sification of 25 OH Vitamin D status:Deficiency/Insufficiency: < or = 30 ng/ml.Sufficiency/Optimal Levels: 31-80 ng/mLToxicity: > 100 ng/mL.Test performed by chemiluminescent immunoassay. Performed By: #### 1 989-3 ####[facility] LABCLIA [id number] [place] [address] [place] B2 Microglob SerPl-mCncon Upnr-2-Igawambhfsyci [Mass/Vol] 1.6 ug/mL Normal 0.8-2.4 [facility] Comment on above: Order Comment: Speci men Type: BLOOD SPECIMENOrdering Facility: [facility] Address: [address] Result Comment: Beta -2 Microglobulin test is performed using the [employer] immunoturbidimetric method. Results obtained with different methods or kits cannot be used interchangeably. Performed By: #### 1 952-1, 1987-5, 2885-2, 2132-9 ####[facility] LABCLIA [id number] [place] [address] [place] CBC W Auto Differential pane l (Bld)on 08-18-2022 Basophils (Bld) [#/Vol] 0.03 10*3/uL Normal <0.11 [facility] Comment on above: Order Comment: Speci men Type: BLOOD SPECIMENOrdering Facility: [facility] Address: [address] [place], [place] [address] Performed By: #### 5 7021-8 ####[facility] LABCLIA [id number] [place] [address] Basophils/100 WBC (Bld) 0.2 % Normal [facility] Comment on above: Order Comment: Speci men Type: BLOOD SPECIMENOrdering Facility: [facility] Address: [address] [place] [address] Performed By: #### 5 7021-8 ####[facility] LABCLIA [id number] [place] [address] Differential cell count method Nom (Bld) Auto Normal [facility] Comment on above: Order Comment: Speci men Type: BLOOD SPECIMENOrdering Facility: [facility] Address: [address] [place] [address] Performed By: #### 5 7021-8 ####[facility] LABCLIA [id number] [place] [address] Eosinophils (Bld) [#/Vol] 0.08 10*3/uL Normal <0.46 [facility] Comment on above: Order Comment: Speci men Type: BLOOD SPECIMENOrdering Facility: [facility] Address: [address] [place] [address] Performed By: #### 5 7021-8 ####[facility] LABCLIA [id number] [place] [address] Eosinophils/100 WBC (Bld) 0.5 % Normal [facility] Comment on above: Order Comment: Speci men Type: BLOOD SPECIMENOrdering Facility: [facility] Address: [address] [place] [address] Performed By: #### 5 7021-8 ####[facility] LABCLIA [id number] [place] [address] Erythrocyte distribution width (RBC) [Ratio] 14.6 % Normal 11.5-15.0 [facility] Comment on above: Order Comment: Speci men Type: BLOOD SPECIMENOrdering Facility: [facility] Address: [address] [place] [address] Performed By: #### 5 7021-8 ####[facility] LABCLIA [id number] [place] [address] Hematocrit (Bld) [Volume fraction] 41.1 % Normal 36.0-46.0 [facility] Comment on above: Order Comment: Speci men Type: BLOOD SPECIMENOrdering Facility: [facility] Address: [address] [place] [address] Performed By: #### 5 7021-8 ####[facility] LABCLIA [id number] [place] [address] Hemoglobin (Bld) [Mass/Vol] 13.1 g/dL Normal 11.5-15.5 [facility] Comment on above: Order Comment: Speci men Type: BLOOD SPECIMENOrdering Facility: [facility] Address: [address] [place] [address] Performed By: #### 5 7021-8 ####[facility] LABCLIA [id number] [place] [address] Immature granulocytes (Bld) [#/Vol] 0.11 10*3/uL High <0.10 [facility] Comment on above: Order Comment: Speci men Type: BLOOD SPECIMENOrdering Facility: [facility] Address: [address] [place] [address] Performed By: #### 5 7021-8 ####[facility] LABCLIA [id number] [place] [address] Immature granulocytes/100 WBC (Bld) 0.7 % Normal [facility] Comment on above: Order Comment: Speci men Type: BLOOD SPECIMENOrdering Facility: [facility] Address: [address] [place] [address] Performed By: #### 5 7021-8 ####[facility] LABCLIA [id number] [place] [address] Lymphocytes (Bld) [#/Vol] 3.19 10*3/uL Normal 1.00-4.00 [facility] Comment on above: Order Comment: Speci men Type: BLOOD SPECIMENOrdering Facility: [facility] Address: [address] [address] Performed By: #### 5 7021-8 ####[facility] LABCLIA [id number] [place] [address] Lymphocytes/100 WBC (Bld) 21.7 % Normal [facility] Comment on above: Order Comment: Speci men Type: BLOOD SPECIMENOrdering Facility: [facility] Address: [address] [place] [address] Performed By: #### 5 7021-8 ####[facility] LABCLIA [id number] [place] [address] MCH (RBC) [Entitic mass] 28.9 pg Normal 26.0-34.0 [facility] Comment on above: Order Comment: Speci men Type: BLOOD SPECIMENOrdering Facility: [facility] Address: [address] [place] [address] Performed By: #### 5 7021-8 ####[facility] LABCLIA [id number] [place] [address] MCHC (RBC) [Mass/Vol] 31.9 g/dL Normal 30.5-36.0 [facility] Comment on above: Order Comment: Speci men Type: BLOOD SPECIMENOrdering Facility: [facility] Address: [address] [place] [address] Performed By: #### 5 7021-8 ####[facility] LABCLIA [id number] [place] [address] MCV (RBC) [Entitic vol] 90.7 fL Normal 80.0-100.0 [facility] Comment on above: Order Comment: Speci men Type: BLOOD SPECIMENOrdering Facility: [facility] Address: [address] [place] [address] Performed By: #### 5 7021-8 ####[facility] LABCLIA [id number] [place] [address] Monocytes (Bld) [#/Vol] 0.87 10*3/uL High <0.87 [facility] Comment on above: Order Comment: Speci men Type: BLOOD SPECIMENOrdering Facility: [facility] Address: [address] [address] Performed By: #### 5 7021-8 ####[facility] LABCLIA [id number] [place] [address] Monocytes/100 WBC (Bld) 5.9 % Normal [facility] Comment on above: Order Comment: Speci men Type: BLOOD SPECIMENOrdering Facility: [facility] Address: [address] [address] Performed By: #### 5 7021-8 ####[facility] LABCLIA [id number] [place] [address] Neutrophils (Bld) [#/Vol] 10.44 10*3/uL High 1.45-7.50 [facility] Comment on above: Order Comment: Speci men Type: BLOOD SPECIMENOrdering Facility: [facility] Address: [address] [address] Performed By: #### 5 7021-8 ####[facility] LABCLIA [id number] [place] [address] Neutrophils/100 WBC (Bld) 71.0 % Normal [facility] Comment on above: Order Comment: Speci men Type: BLOOD SPECIMENOrdering Facility: [facility] Address: [address] [address] Performed By: #### 5 7021-8 ####[facility] LABCLIA [id number] [place] [address] Nucleated RBC (Bld) [#/Vol] 10*3/uL Normal <0.01 [facility] Comment on above: Order Comment: Speci men Type: BLOOD SPECIMENOrdering Facility: [facility] Address: [address] [place] [address] Performed By: #### 5 7021-8 ####[facility] LABCLIA [id number] [place] [address] Nucleated RBC/100 WBC (Bld) [Ratio] 0.0 /100 WBC Normal [facility] Comment on above: Order Comment: Speci men Type: BLOOD SPECIMENOrdering Facility: [facility] Address: [address] [place] [address] Performed By: #### 5 7021-8 ####[facility] LABCLIA [id number] [place] [address] Platelet mean volume (Bld) [Entitic vol] 9.8 fL Normal 9.0-12.7 [facility] Comment on above: Order Comment: Speci men Type: BLOOD SPECIMENOrdering Facility: [facility] Address: [address] [place] [address] Performed By: #### 5 7021-8 ####[facility] LABIA [id number] [place] [address] Platelets (Bld) [#/Vol] 309 10*3/uL Normal 150-400 [facility] Comment on above: Order Comment: Speci men Type: BLOOD SPECIMENOrdering Facility: [facility] Address: [address] [place] [address] Performed By: #### 5 7021-8 ####[facility] LABIA [id number] [place] [address] RBC (Bld) [#/Vol] 4.53 10*6/uL Normal 3.90-5.20 [facility] Comment on above: Order Comment: Speci men Type: BLOOD SPECIMENOrdering Facility: [facility] Address: [address] [place] [address] Performed By: #### 5 7021-8 ####[facility] LABIA [id number] [place] [address] WBC (Bld) [#/Vol] 14.72 10*3/uL High 3.70-11.00 [facility] Comment on above: Order Comment: Speci men Type: BLOOD SPECIMENOrdering Facility: [facility] Address: [address] [place] [address] Performed By: #### 5 7021-8 ####[facility] LABCLIA [id number] [place] [address] CRP SerPl-ncon 08-18-2022 CRP [Mass/Vol] 0.3 mg/dL Normal <0.9 [facility] Comment on above: Order Comment: Speci men Type: BLOOD SPECIMENOrdering Facility: [facility] Address: [address] [place] [address] Performed By: #### 1 952-1, 1987-09, 2885-2, 2132-9 ####[facility] LABCLIA [id number] [place] [address] [place] Calcium.ionized [Moles/Vol]o n 08-18-2022 Calcium.ionized (Bld) [Mass/Vol] 1.29 mmol/L Normal 1.08-1.30 [facility] Comment on above: Order Comment: Speci men Type: BLOOD SPECIMENOrdering Facility: [facility] Address: [address] [place] [address] Performed By: #### 1 995-0 ####[facility] LABCLIA [id number] [place] [address] [place] Calcium.ionized adjusted to pH 7.4 (Bld) [Moles/Vol] 1.27 mmol/L Normal 1.08-1.30 [facility] Comment on above: Order Comment: Speci men Type: BLOOD SPECIMENOrdering Facility: [facility] Address: [address] [place], [place] [address] Performed By: #### 1 995-0 ####[facility] LABCLIA [id number] [place] [address] [place] Comprehensive metabolic 2000 panelon 08-18-2022 Albumin [Mass/Vol] 4.2 g/dL Normal 3.9-4.9 [facility] Comment on above: Order Comment: Speci men Type: BLOOD SPECIMENOrdering Facility: [facility] Address: [address] [place] [address] Performed By: #### 2 532-0, 2777-1, 3084-1, 06270-2 ####[facility] LABCLIA [id number] [place] [address] ALP [Catalytic activity/Vol] 66 U/L Normal 34-123 [facility] Comment on above: Order Comment: Speci men Type: BLOOD SPECIMENOrdering Facility: [facility] Address: [address] [place] [address] Performed By: #### 2 532-0, 2777-1, 3084-1, 91697-0 ####[facility] LABIA [id number] [place] [address] ALT [Catalytic activity/Vol] 22 U/L Normal 7-38 [facility] Comment on above: Order Comment: Speci men Type: BLOOD SPECIMENOrdering Facility: [facility] Address: [address] [place] [address] Performed By: #### 2 532-0, 2777-1, 3084-1, 98525-4 ####[facility] LABIA [id number] [place] [address] Anion gap [Moles/Vol] 11 mmol/L Normal 9-18 [facility] Comment on above: Order Comment: Speci men Type: BLOOD SPECIMENOrdering Facility: [facility] Address: [address] [place] [address] Performed By: #### 2 532-0, 2777-1, 3084-1, 98994-5 ####[facility] LABIA [id number] [place] [address] AST [Catalytic activity/Vol] 9 U/L Low 13-35 [facility] Comment on above: Order Comment: Speci men Type: BLOOD SPECIMENOrdering Facility: [facility] Address: [address] [place] [address] Performed By: #### 2 532-0, 277-1, 3083-, ####[facility] LABCLIA [id number] [place] [address] Bilirubin [Mass/Vol] 0.2 mg/dL Normal 0.2-1.3 [facility] Comment on above: Order Comment: Speci men Type: BLOOD SPECIMENOrdering Facility: [facility] Address: [address] [place] [address] Performed By: #### 2 532-0, 277-1, 3083-05, ####[facility] LABCLIA [id number] [place] [address] Calcium [Mass/Vol] 9.3 mg/dL Normal 8.5-10.2 [facility] Comment on above: Order Comment: Speci men Type: BLOOD SPECIMENOrdering Facility: [facility] Address: [address] [place] [address] Performed By: #### 2 532-0, 2776-1, 3083-05, ####[facility] LABCLIA [id number] [place] [address] Chloride [Moles/Vol] 106 mmol/L High 97-105 [facility] Comment on above: Order Comment: Speci men Type: BLOOD SPECIMENOrdering Facility: [facility] Address: [address] [place] [address] Performed By: #### 2 532-0, 2776-1, 3083-05, ####[facility] LABCLIA [id number] [place] [address] CO2 [Moles/Vol] 23 mmol/L Normal 22-30 [facility] Comment on above: Order Comment: Speci men Type: BLOOD SPECIMENOrdering Facility: [facility] Address: [address] Performed By: #### 2 532-0, 7-1, 3083-05, ####[facility] LABCLIA [id number] [place] [address] Creatinine [Mass/Vol] 0.68 mg/dL Normal 0.58-0.96 [facility] Comment on above: Order Comment: Speci men Type: BLOOD SPECIMENOrdering Facility: [facility] Address: [address] [place] [address] Performed By: #### 2 532-0, 2776-1, 3083-05, ####[facility] LABCLIA [id number] [place] [address] ESTIMATED GLOMERULAR FILTRATION RATE 112 mL/min/1.73m??? Normal >=60 [facility] Comment on above: Order Comment: Speci men Type: BLOOD SPECIMENOrdering Facility: [facility] Address: [address] [address] Result Comment: Erin mated Glomerular Filtration Rate (eGFR) is calculated using the 2020 CKD-EPI creatinine equation. This equation utilizes serum creatinine, sex, and age as parameters. The creatinine assay has traceable calibration to isotope dilution-mass spectrometry. Refer to KDIGO guidelines for clinical interpretation. In patients with unstable renal function, e.g. those with acute kidney injury, the eGFR may not accurately reflect actual GFR. Performed By: #### 2 532-0, 2777-1, 3083-05, ####[facility] LABCLIA [id number] [place] [address] Glucose [Mass/Vol] 119 mg/dL High 74-99 [facility] Comment on above: Order Comment: Speci men Type: BLOOD SPECIMENOrdering Facility: [facility] Address: [address] [address] Result Comment: The [place] Diabetes Association (ADA) provides guidance for cutoff values for fasting glucose and random glucose. The ADA defines fasting as no caloric intake for at least 8 hours. Fasting plasma glucose results between 100 to 125 mg/dL indicate increased risk for diabetes (prediabetes).Fasting plasma glucose results greater than or equal to 126 mg/dL meet the criteria for diagnosis of diabetes. In the absence of unequivocal hyperglycemia, results should be confirmed by repeat testing. In a patient with classic symptoms of hyperglycemia or hyperglycemic crisis, random plasma glucose results greater than or equal to 200 mg/dL meet the criteria for diagnosis of diabetes.Reference: Standards of Medical Care in Diabetes 2016, [place] Diabetes Association. Diabetes Care. 2016.39(Suppl 1). Performed By: #### 2 532-0, 2777-1, 3084-1, 80741-9 ####[facility] LABIA [id number] [place] [address] Potassium [Moles/Vol] 3.7 mmol/L Normal 3.7-5.1 [facility] Comment on above: Order Comment: Speci men Type: BLOOD SPECIMENOrdering Facility: [facility] Address: [address] [id number] Performed By: #### 2 532-0, 2777-1, 308-, 21709-6 ####[facility] LABIA [id number] [place] [address] Protein [Mass/Vol] 7.1 g/dL Normal 6.3-8.0 [facility] Comment on above: Order Comment: Speci men Type: BLOOD SPECIMENOrdering Facility: [facility] Address: [address] [phone] Performed By: #### 2 532-0, 2777-1, 308-, 93838-9 ####[facility] LABIA [id number] [place] [address] Sodium [Moles/Vol] 140 mmol/L Normal 136-144 [facility] Comment on above: Order Comment: Speci men Type: BLOOD SPECIMENOrdering Facility: [facility] Address: [address] [phone] Performed By: #### 2 532-0, 2777-1, 3084-1, 66525-9 ####[facility] LABCLIA [id number] [place] [address] Urea nitrogen [Mass/Vol] 11 mg/dL Normal 7-21 [facility] Comment on above: Order Comment: Speci men Type: BLOOD SPECIMENOrdering Facility: [facility] Address: [address] [place] [address] Performed By: #### 2 532-0, 2777-1, 3084-1, 31879-7 ####[facility] LABCLIA [id number] [place] [address] ESR Westergren method (Bld) [Velocity]on 08-18-2022 ESR (Bld) [Velocity] 25 mm/h High 0-20 [facility] Comment on above: Order Comment: Speci men Type: BLOOD SPECIMENOrdering Facility: [facility] Address: [address] [place] [address] Performed By: #### 4 537-7 ####[facility] [id number] [address] [place] IMMUNOFIXATION SCREEN, SERUM on 08-18-2022 MPA RESULT No M protein is identified. Normal No M protein is identified. [facility] Comment on above: Order Comment: Speci men Type: BLOOD SPECIMENOrdering Facility: [facility] Address: [address] [place], [place] [address] Performed By: #### I FESC ####[facility] LABIA [id number] [address] [place] STAFF REVIEW (MPA) Reviewed by Dr. Gregg Ortez MD [facility] Comment on above: Order Comment: Speci men Type: BLOOD SPECIMENOrdering Facility: [facility] Address: [address] [place] [address] Performed By: #### I FESC ####[facility] LABCLIA [id number] [place] [address] [place] IMMUNOGLOBULINS GAMon 2022 IgA [Mass/Vol] 188 mg/dL Normal 70-400 [facility] Comment on above: Order Comment: Speci men Type: BLOOD SPECIMENOrdering Facility: [facility] Address: [address] [place] [address] Performed By: #### S ERIMM ####[facility] LABCLIA [id number] [place] [address] [place] IgG [Mass/Vol] 591 mg/dL Low 700-1600 [facility] Comment on above: Order Comment: Speci men Type: BLOOD SPECIMENOrdering Facility: [facility] Address: [address] [place] [address] Performed By: #### S ERIMM ####[facility] LABCLIA [id number] [address] [place] IgM [Mass/Vol] 513 mg/dL High 40-230 [facility] Comment on above: Order Comment: Speci men Type: BLOOD SPECIMENOrdering Facility: [facility] Address: [address] [place] [address] Performed By: #### S ERIMM ####[facility] LABCLIA [id number] [place] [address] [place] KAPPA/FARMER,FREE,SERon 2022 Immunoglobulin light chains.kappa.free (S) [Mass/Vol] 13.9 mg/L Normal 3.3-19.4 [facility] Comment on above: Order Comment: Speci men Type: BLOOD SPECIMENOrdering Facility: [facility] Address: [address] [place] [address] Result Comment: Rare ly, increased serum free light chains levels may not be detected or accurately quantified due to prozone phenomenon or in high viscosity samples using this immunoturbidimetric assay. Correlation with other laboratory results and clinical findings is recommended.The Ney Free Light Chain was performed using the Binding Site Optilite immunoturbidimetric method. Result obtained with different assay methods or kits cannot be used interchangeably. Performed By: #### K LFRS ####[facility] LABCLIA [id number] [place] [address] [place] Immunoglobulin light chains.kappa/Immunog lobulin light chains.lambda (S) [Mass ratio] 1.51 Normal 0.26-1.65 [facility] Comment on above: Order Comment: Speci men Type: BLOOD SPECIMENOrdering Facility: [facility] Address: [address] [place] [address] Performed By: #### K LFRS ####[facility] LABIA [id number] [place] [address] [place] Immunoglobulin light chains.lambda.free [Mass/Vol] 9.2 mg/L Normal 5.7-26.3 [facility] Comment on above: Order Comment: Speci men Type: BLOOD SPECIMENOrdering Facility: [facility] Address: [address] [place] [address] Result Comment: Rare ly, increased serum free light chains levels may not be detected or accurately quantified due to prozone phenomenon or in high viscosity samples using this immunoturbidimetric assay. Correlation with other laboratory results and clinical findings is recommended.The Lambda Free Light Chain was performed using the Binding Site Optilite immunoturbidimetric method. Result obtained with different assay methods or kits cannot be used interchangeably. Performed By: #### K LFRS ####[facility] LABIA [id number] [place] [address] [place] LDH SerPl-cCncon 08-18-2022 LDH [Catalytic activity/Vol] 164 U/L Normal 135-214 [facility] Comment on above: Order Comment: Speci men Type: BLOOD SPECIMENOrdering Facility: [facility] Address: [address] [place] [address] Performed By: #### 2 532-0, 2777-1, 3084-1, 49469-2 ####[facility] LABCLIA [id number] [place] [address] PROTEIN ELECTROPHORESIS SERU M (P)on 08-18-2022 Albumin [Mass/Vol] 3.95 g/dL Normal 3.43-5.41 [facility] Comment on above: Order Comment: Speci men Type: BLOOD SPECIMENOrdering Facility: [facility] Address: [address] [place] [address] Performed By: #### L [id number] ####[facility] LABIA [id number] [place] [address] [place] Alpha 1 globulin Elph [Mass/Vol] 0.35 g/dL Normal 0.18-0.43 [facility] Comment on above: Order Comment: Speci men Type: BLOOD SPECIMENOrdering Facility: [facility] Address: [address] [place] [address] Performed By: #### L [id number] ####[facility] LABIA [id number] [place] [address] [place] Alpha 2 globulin Elph [Mass/Vol] 0.80 g/dL Normal 0.42-0.98 [facility] Comment on above: Order Comment: Speci men Type: BLOOD SPECIMENOrdering Facility: [facility] Address: [address] [place] [address] Performed By: #### L [id number] ####[facility] LABCLIA [id number] [place] [address] [place] Beta globulin Elph [Mass/Vol] 1.06 g/dL Normal 0.61-1.17 [facility] Comment on above: Order Comment: Speci men Type: BLOOD SPECIMENOrdering Facility: [facility] Address: [address] [place] [address] Performed By: #### L [id number] ####[facility] LABCLIA [id number] [address] [place] Gamma globulin Elph [Mass/Vol] 0.74 g/dL Normal 0.53-1.51 [facility] Comment on above: Order Comment: Speci men Type: BLOOD SPECIMENOrdering Facility: [facility] Address: [address] [place] [address] Performed By: #### L [id number] ####[facility] LABCLIA [id number] [address] [place] M-PROTEIN LOCATION Normal [facility] Comment on above: Order Comment: Speci men Type: BLOOD SPECIMENOrdering Facility: [facility] Address: [address] [place] [address] Result Comment: Not Applicable. Performed By: #### L [id number] ####[facility] LABIA [id number] [address] [place] Protein Fractions [Interp] No definitive M protein is identified on protein electrophoresis. Normal No definitive M protein is identified on protein electrophore sis. [facility] Comment on above: Order Comment: Speci men Type: BLOOD SPECIMENOrdering Facility: [facility] Address: [address] [place] [address] Performed By: #### L [id number] ####[facility] LABCLIA [id number] [address] [place] Protein.monoclonal Elph [Mass/Vol] 0.00 g/dL Normal <=0.00 [facility] Comment on above: Order Comment: Speci men Type: BLOOD SPECIMENOrdering Facility: [facility] Address: [address] [place] [address] Performed By: #### L [id number] ####[facility] LABCLIA [id number] [place] [address] [place] SPE STAFF REVIEW Reviewed by Dr. Gregg Ortez MD [facility] Comment on above: Order Comment: Speci men Type: BLOOD SPECIMENOrdering Facility: [facility] Address: [address] [place] [address] Performed By: #### L [id number] ####[facility] LABCLIA [id number] [place] [address] [place] Phosphate SerPl-mCncon 08-18 Phosphate [Mass/Vol] 3.6 mg/dL Normal 2.7-4.8 [facility] Comment on above: Order Comment: Speci men Type: BLOOD SPECIMENOrdering Facility: [facility] Address: [address] [place] [address] Performed By: #### 2 532-0, 277-1, 308-1, 00189-8 ####[facility] LABCLIA [id number] [place] [address] Prot SerPl-mCncon 08-18-2022 Protein [Mass/Vol] 6.9 g/dL Normal 6.3-8.0 [facility] Comment on above: Order Comment: Speci men Type: BLOOD SPECIMENOrdering Facility: [facility] Address: [address] [place] [address] Performed By: #### 1 952-1, 1987-5, 2885-2, 2132-9 ####[facility] LABCLIA [id number] [place] [address] [place] Urate SerPl-mCncon Urate [Mass/Vol] 3.8 mg/dL Normal 2.5-6.6 [facility] Comment on above: Order Comment: Speci men Type: BLOOD SPECIMENOrdering Facility: [facility] Address: [address] Performed By: #### 2 532-0, 2777-1, 3084-1, 53566-3 ####[facility] LABCLIA [id number] [place] [address] Vit B12 SerPl-mCncon 023 Cobalamin (Vitamin B12) [Mass/Vol] 325 pg/mL Normal 232-1245 [facility] Comment on above: Order Comment: Speci men Type: BLOOD SPECIMENOrdering Facility: [facility] Address: [address] [place] [address] Performed By: #### 1 952-1, 1987-5, 2885-2, 2131- ####[facility] LABCLIA [id number] [address] [address] [place] CNPNon 07-28-2022 CNPN Normal [facility] CNPNon 07-24-2022 CNPN Normal [facility] MRI KNEE RT WO CONon 022 MRI KNEE RT WO CON HISTORY: Right knee pain since a tripping injury. MRI KNEE RT WO CON: 03/31/2022 1:46 PM EST COMPARISON: Radiographs right knee 03/21/2022. TECHNIQUE: Multiplanar, multisequence MRI images of the right knee were obtained. FINDINGS: JOINT SPACES: There is a moderate-sized joint effusion. There are linear low signal intensity filling defects within this joint effusion which are probably secondary to a hemarthrosis. LIGAMENTS AND TENDONS: There is a small amount of soft tissue edema adjacent to the proximal portion of the medial collateral ligament. The lateral collateral ligament, posterior cruciate ligament, iliotibial band, patellar tendon, and visualized distal quadriceps tendon appear within normal limits. There is a rupture of the anterior cruciate ligament and the torn fibers have flipped anterior to the intercondylar notch. MENISCI: There is a complex morphology tear of the body and entire posterior horn of the medial meniscus with a probable meniscal flap fragment displaced anterior to the posterior horn root. There appears to be a probable small undersurface tear of the posterior horn lateral meniscus root. BONES: The bone marrow signal intensity is age appropriate. There is a small nondisplaced fracture of the posterior cortex of the lateral tibial plateau with a small amount of adjacent bone marrow edema. There is a small 2 x 3 mm partial-thickness chondral defect of the adjacent posterior aspect of the lateral tibial plateau cartilage. There is a small bone contusion within the posterior aspect of the medial tibial plateau. MUSCLES AND SOFT TISSUES: The visualized musculature appears of normal signal intensity. There is no Macias cyst. IMPRESSION: 1. Acute rupture of the anterior cruciate ligament with an associated small nondisplaced fracture of the posterior aspect of the lateral tibial plateau and a small bone contusion in the posterior aspect of the medial tibial plateau. 2. Complex morphology tear of the body and posterior horn of the medial meniscus. 3. Probable small undersurface tear of the posterior horn lateral meniscus root. 4. There is a small 2 x 3 mm partial-thickness chondral defect of the posterior aspect of the lateral tibial plateau cartilage. The remaining articular cartilage appears grossly within normal limits. 5. Moderate-sized hemarthrosis. Electronically authenticated by: MADELAINE GOMEZ Date: 2022-04-01 08:24 Normal [facility] PNEUMOCOCCAL IGG ABS, 23 SER OTYPESon 03-21-2022 Pneumococcal Interpretation See Note [facility] S. pneumoniae 1 IgG (S) [Mass/Vol] 0.27 ug/mL [facility] S. pneumoniae 12 IgG (S) [Mass/Vol] 0.08 ug/mL [facility] S. pneumoniae 14 IgG (S) [Mass/Vol] 0.19 ug/mL [facility] S. pneumoniae 17 IgG (S) [Mass/Vol] 1.72 ug/mL [facility] S. pneumoniae 19 IgG (S) [Mass/Vol] 1.52 ug/mL [facility] S. pneumoniae 2 IgG (S) [Mass/Vol] 0.44 ug/mL [facility] S. pneumoniae 20 IgG (S) [Mass/Vol] 1.53 ug/mL [facility] S. pneumoniae 22 IgG (S) [Mass/Vol] 0.99 ug/mL [facility] S. pneumoniae 23 IgG (S) [Mass/Vol] 0.14 ug/mL [facility] S. pneumoniae 3 IgG (S) [Mass/Vol] 0.36 ug/mL [facility] S. pneumoniae 34 IgG (S) [Mass/Vol] 5.77 ug/mL [facility] S. pneumoniae 4 IgG (S) [Mass/Vol] 0.06 ug/mL [facility] S. pneumoniae 43 IgG (S) [Mass/Vol] 0.93 ug/mL [facility] S. pneumoniae 5 IgG (S) [Mass/Vol] 0.89 ug/mL [facility] S. pneumoniae 8 IgG (S) [Mass/Vol] 0.58 ug/mL [facility] S. pneumoniae 9 IgG (S) [Mass/Vol] 0.4 ug/mL [facility] S. pneumoniae Estonian type 15B IgG (S) [Mass/Vol] 8.27 ug/mL [facility] S. pneumoniae Estonian type 18C IgG (S) [Mass/Vol] 0.39 ug/mL [facility] S. pneumoniae [place]ian type 19A IgG (S) [Mass/Vol] 17.72 ug/mL [facility] S. pneumoniae [place]ian type 33F IgG (S) [Mass/Vol] 3.04 ug/mL [facility] S. pneumoniae [place]ian type 6B IgG (S) [Mass/Vol] 0.82 ug/mL [facility] S. pneumoniae [place] type 7F IgG (S) [Mass/Vol] 0.34 ug/mL [facility] S. pneumoniae [place]ian type 9V IgG (S) [Mass/Vol] 0.78 ug/mL [facility] XR KNEE RT 4V or >on 022 XR KNEE RT 4V or > IMAGES REVIEWED: XR KNEE RT 4V or > COMPARISON: None available. CLINICAL INDICATION: Injury of right knee FINDINGS/IMPRESSION: 1. No evidence of acute osseous abnormality of the right knee. 2. Nonspecific small suprapatellar effusion. 3. Mild anterior infrapatellar knee soft tissue swelling. Electronically authenticated by: KRISTINA GARRETT Date: 2022-03-21 16:47 Normal [facility] DIPHTHER/TETANUS ABon 2021 C. diphtheriae IgG Qn (S) 0.1 IU/mL [facility] C. tetani toxoid IgG IA Qn 1 IU/mL [facility] IGA BLDon 03-18-2022 IgA [Mass/Vol] 182 mg/dL 70 - 400 mg/dL [facility] IGE BLDon 03-18-2022 IgE Qn 12.3 kU/l <114.0 kU/l [facility] IGGon 03-18-2022 IgG [Mass/Vol] 618 mg/dL Low 700 - 1,600 mg/dL [facility] IGMon 03-18-2022 IgM [Mass/Vol] 514 mg/dL High 40 - 230 mg/dL [facility] Immunodeficiency panel FC (B ld)on 03-18-2022 CD3 cells (Bld) [#/Vol] 2841 cells/uL High 958 - 2,388 cells/uL [facility] CD3 cells/100 cells (Bld) 81 % 60 - 89 % [facility] CD3+CD4+ (T4 helper) cells (Bld) [#/Vol] 1621 cells/uL 533 - 1,674 cells/uL [facility] CD3+CD4+ (T4 helper) cells/100 cells (Bld) 46 % 34 - 61 % [facility] CD3+CD4+ (T4 helper) cells/CD3+CD8+ (T8 suppressor cells) cells (Bld) [# ratio] 1.55 % 1.10 - 3.25 [facility] CD3+CD8+ (T8 suppressor cells) cells (Bld) [#/Vol] 1049 cells/uL High 175 - 958 cells/uL [facility] CD3+CD8+ (T8 suppressor cells) cells/100 cells (Bld) 30 % 10 - 41 % [facility] CD3-CD16+CD56+ (Natural killer) cells (Bld) [#/Vol] 193 cells/uL 102 - 565 cells/uL [facility] CD3-CD16+CD56+ (Natural killer) cells/100 cells (Bld) 5 % 5 - 25 % [facility] CD3-CD19+ cells (Bld) [#/Vol] 475 cells/uL 75 - 660 cells/uL [facility] CD3-CD19+ cells/100 cells (Bld) 13 % 5 - 22 % [facility] CBC W Auto Differential pane l (Bld)on 03-17-2022 Basophils (Bld) [#/Vol] 0.07 10*3/uL <0.11 k/uL [facility] Basophils/100 WBC (Bld) 0.6 % [facility] Differential cell count method Nom (Bld) Auto [facility] Eosinophils (Bld) [#/Vol] 0.18 10*3/uL <0.46 k/uL [facility] Eosinophils/100 WBC (Bld) 1.6 % [facility] Erythrocyte distribution width (RBC) [Ratio] 14.6 % 11.5 - 15.0 % [facility] Hematocrit (Bld) [Volume fraction] 40.5 % 36.0 - 46.0 % [facility] Hemoglobin (Bld) [Mass/Vol] 13.0 g/dL 11.5 - 15.5 g/dL [facility] Immature granulocytes (Bld) [#/Vol] 0.06 10*3/uL <0.10 k/uL [facility] Immature granulocytes/100 WBC (Bld) 0.5 % [facility] Lymphocytes (Bld) [#/Vol] 2.97 10*3/uL 1.00 - 4.00 k/uL [facility] Lymphocytes/100 WBC (Bld) 26.9 % [facility] MCH (RBC) [Entitic mass] 28.4 pg 26.0 - 34.0 pg [facility] MCHC (RBC) [Mass/Vol] 32.1 g/dL 30.5 - 36.0 g/dL [facility] MCV (RBC) [Entitic vol] 88.4 fL 80.0 - 100.0 fL [facility] Monocytes (Bld) [#/Vol] 0.79 10*3/uL <0.87 k/uL [facility] Monocytes/100 WBC (Bld) 7.2 % [facility] Neutrophils (Bld) [#/Vol] 6.97 10*3/uL 1.45 - 7.50 k/uL [facility] Neutrophils/100 WBC (Bld) 63.2 % [facility] Nucleated RBC (Bld) [#/Vol] <0.01 k/uL [facility] Nucleated RBC/100 WBC (Bld) [Ratio] 0.0 /100 WBC [facility] Platelet mean volume (Bld) [Entitic vol] 9.9 fL 9.0 - 12.7 fL [facility] Platelets (Bld) [#/Vol] 314 10*3/uL 150 - 400 k/uL [facility] RBC (Bld) [#/Vol] 4.58 10*6/uL 3.90 - 5.2 0 m/uL [facility] WBC (Bld) [#/Vol] 11.04 10*3/uL High 3.70 - 11 .00 k/uL [facility] ECHOCARDIO M/2D COMPLETEon ECHOCARDIO M/2D COMPLETE Patient: JONES HALEY Exam Date: 03/12/2022 : 1980 Gender:F Ordering : DR MADELAINE FERRIS . Admission #: [id number] Family : Order #: [id number] CLICK HERE TO VIEW EXAM ECHOCARDIOGRAM REPORT PROCEDURE: CARDIO PULMONARY ECHOCARDIO M/2D COMP INDICATIONS: Abnormal EKG COMPARISON: None. DESCRIPTION: COMPLETE ECHOCARDIOGRAM Real-time transthoracic echocardiography with 2D, M-mode, spectral and color flow Doppler performed. QUALITY: Technical quality was good. LEFT VENTRICLE: Normal chamber size. Mild concentric left ventricular hypertrophy. LV EF: Global left ventricular systolic function is normal; visually estimated ejection fraction is 60-65 %. No significant wall motion abnormalities. DIASTOLIC: Normal diastolic function. ATRIAL SEPTUM: Inadequately seen. LEFT ATRIUM: Normal chamber size. RIGHT ATRIUM: Normal chamber size. RIGHT VENTRICLE: Normal chamber size. Normal right ventricular systolic function. TRICUSPID VALVE: Normal mobility and thickness. No stenosis with trivial regurgitation. No evidence of pulmonary hypertension. MITRAL VALVE: Normal mobility and thickness. No mitral valve prolapse. No evidence of mitral valve stenosis. There is no mitral annular calcification. Trivial mitral regurgitation. AORTIC VALVE: Normal trileaflet appearance. No visible sclerosis. Normal leaflet mobility. No evidence of aortic valve stenosis. No aortic regurgitation. AORTIC ROOT: Normal diameter and appearance. PULMONIC VALVE: Normal thickness and mobility. No stenosis. Trivial regurgitation. PERICARDIUM: Anterior free space; trivial effusion versus fat pad. IVC: Collapses with inspirations. Normal size CONCLUSION: Global left ventricular systolic function is normal; visually estimated ejection fraction is 60-65%. No significant wall motion abnormalities. Diastolic function is normal. Mild left ventricular hypertrophy. The right ventricle is normal in size and systolic function. No significant valvular abnormalities. Anterior free space; trivial effusion versus fat pad. Adult Echocardiography Procedure Report Left Ventricle LVEDD (3.7 - 5.6 cm): 4.23 cm LVESD (2.2 - 4.0 cm): 2.89 cm LVIVS thickness (0.6 - 1.2 cm): 1.13 cm LVPW thickness (0.5 - 1.0 cm): 1.13 cm e': 0.13 m/s E - e': 4.51 LVOT Max Gradient: 3.00 mm[Hg] Peak Velocity (LVOT): 0.87 m/s Mean Velocity (LVOT): 0.58 m/s LVOT Diameter 2.17 cm Left Ventricular Ejection Fraction: 59.95 %, 59.95 % Left Atrium LA Volume Index (2D A2C): 54.51 ml, 54.51 ml Left Atrium Systolic Dimension: 3.73 cm Mitral Valve MV E to A Ratio: 1.06 Mitral Valve A-Wave Peak Velocity: 0.57 m/s Mitral Valve E-Wave Peak Velocity: 0.60 m/s Right Ventricle RV Internal Diastolic Dimension: 3.38 cm Aorta AO Root Diam: 2.84 cm Ascending Ao Diam: 2.61 cm Aortic Valve AoV Area (Peak Dima): 3.11 cm2, 3.11 cm2 AoV Area (VTI): 3.12 cm2, 3.12 cm2 Peak Velocity(Antegrade Flow): 1.02 m/s Peak Gradient(Antegrade Flow): 4.20 mm[Hg] Mean Velocity(Antegrade Flow): 0.75 m/s Mean Gradient(Antegrade Flow): 2.56 mm[Hg] Velocity Time Integral: 24.66 cm Tricuspid Valve Peak Velocity (Regurgitant Flow): 0.98 m/s Peak Velocity: 0.41 m/s Pulmonic Valve Mean Gradient: 2.75 mm[Hg], 2.53 mm[Hg] Mean Velocity: 0.77 m/s, 0.74 m/s Peak Velocity: 1.12 m/s, 1.09 m/s Peak Gradient: 5.05 mm[Hg], 4.73 mm[Hg] Right Atrium Right Atrium Systolic Pressure: 40.04 ml, 40.04 ml Dictated by: Calos Mendoza M.D. on 03/16/2022 at 16:43 Approved by: Calos Mendoza M.D. on 03/16/2022 at 16:47 Normal [facility] INSULINon 03-11-2022 Insulin 17.8 uIU/mL Normal 2.6-24.9 [facility] Comment on above: Performed By: #### C BC #### [facility] [address] [address] [address] Manda York CBC AUTO DIFFon 03-09-2022 BASO # 0.1 103/ul Normal 0.0-0.1 [facility] Comment on above: Performed By: #### C BC #### [facility] [address] [address] [address] Manda York Basophils/100 WBC (Bld) 0.4 % Normal 0.2-2.0 [facility] Comment on above: Performed By: #### C BC #### [facility] [address] [place] [address] Dr. Manda York EO # 0.2 103/ul Normal 0.0-0.7 [facility] Comment on above: Performed By: #### C BC #### [facility] [address] [place] [address] Dr. Manda York Eosinophils/100 WBC (Bld) 1.2 % Normal 0.9-7.0 [facility] Comment on above: Performed By: #### C BC #### [facility] [address] [place] [address] Dr. Manda York Erythrocyte distribution width (RBC) [Ratio] 14.6 % Normal 11.0-15.0 [facility] Comment on above: Performed By: #### C BC #### [facility] [address] [place] [address] Dr. Manda York Hematocrit (Bld) [Volume fraction] 39.2 % Normal 36.0-48.0 [facility] Comment on above: Performed By: #### C BC #### [facility] [address] [place] [address] Dr. Manda York Hemoglobin (Bld) [Mass/Vol] 12.7 g/dL Normal 12.0-16.0 [facility] Comment on above: Performed By: #### C BC #### [facility] [address] [place] [address] Dr. Manda York IG # 0.06 10e3/ul Critically high 0.00-0.03 [facility] Comment on above: Performed By: #### C BC #### [facility] [address] [place] [address] Dr. Manda York IG % 0.5 % Normal 0.0-0.5 [facility] Comment on above: Performed By: #### C BC #### [facility] [address] [place] [address] Dr. Manda York LYMPH # 3.7 103/ul Normal 1.2-3.8 [facility] Comment on above: Performed By: #### C BC #### [facility] [address] [place] [address] Dr. Manda York Lymphocytes/100 WBC (Bld) 31.0 % Normal 20.5-60.0 [facility] Comment on above: Performed By: #### C BC #### [facility] [address] [place] [address] Dr. Manda York MANUAL DIFF REQ NO Normal [facility] Comment on above: Performed By: #### C BC #### [facility] [address] [place] [address] Dr. Manda York MCH (RBC) [Entitic mass] 28.9 pg Normal 26.7-34.0 [facility] Comment on above: Performed By: #### C BC #### [facility] [address] [place] [address] Dr. Manda York MCHC (RBC) [Mass/Vol] 32.4 g/dL Normal 29.9-35.2 [facility] Comment on above: Performed By: #### C BC #### [facility] [address] [place] [address] Dr. Manda York MCV (RBC) [Entitic vol] 89.1 fL Normal 81.0-99.0 [facility] Comment on above: Performed By: #### C BC #### [facility] [address] [place] [address] Dr. Manda York MONO # 0.7 103/ul Normal 0.3-0.8 [facility] Comment on above: Performed By: #### C BC #### [facility] [address] [place] [address] Dr. Manda York Monocytes/100 WBC (Bld) 5.8 % Normal 1.7-12.0 [facility] Comment on above: Performed By: #### C BC #### [facility] [address] [place] [address] Dr. Manda York NEUT # 7.3 103/ul Critically high 1.4-6.5 [facility] Comment on above: Performed By: #### C BC #### [facility] [address] [place] [address] Dr. Manda York Neutrophils/100 WBC (Bld) 61.1 % Normal 43.0-75.0 [facility] Comment on above: Performed By: #### C BC #### [facility] [address] [place] [address] Dr. Manda York Platelet mean volume (Bld) [Entitic vol] 9.7 fL Normal 9.5-13.5 [facility] Comment on above: Performed By: #### C BC #### [facility] [address] [place] [address] Dr. Manda York PLT 297 103/ul Normal 150-450 [facility] Comment on above: Performed By: #### C BC #### [facility] [address] [place] [address] Dr. Manda York RBC 4.40 106/ul Normal 4.20-5.40 [facility] Comment on above: Performed By: #### C BC #### [facility] [address] [place] [address] Dr. Manda York WBC 12.0 103/ul Critically high 4.0-11.0 [facility] Comment on above: Performed By: #### C BC #### [facility] [address] [place] [address] Dr. Manda York FREE THYROXINE INDEX T7on FTI 3.81 Normal 1.30-4.50 [facility] Comment on above: Performed By: #### U AMIC #### [facility] [address] [place] [address] Dr. Manda York T3U 34.0 % Normal 30.0-39.0 [facility] Comment on above: Performed By: #### U AMIC #### [facility] [address] [place] [address] Dr. Manda York T4 [Mass/Vol] 11.20 ug/dL Normal 4.80-13.90 [facility] Comment on above: Performed By: #### U AMIC #### [facility] [address] [address] [address] Manda York GLYCOHEMOGLOBIN A1Con 2021 ADA RECOMMENDATION SEE BELOW Normal [facility] Comment on above: Result Comment: ADA RECOMMENDED LIMIT 4.0 - 6.0 ADA THERAPEUTIC TARGET < 7.0 ACTION SUGGESTED > 7.0 Performed By: #### S LUIGI MELO #### [facility] [address] [address] [address] Manda York Glucose [Mass/Vol] 117 mg/dL Normal [facility] Comment on above: Performed By: #### S LUIGI MELO #### [facility] [address] [address] [address] Manda York HbA1c (Bld) [Mass fraction] 5.7 % Normal 4.5-6.2 [facility] Comment on above: Performed By: #### S LUIGI MELO #### [facility] [address] [place] [address] Dr. Manda York IRONon 03-09-2022 Iron [Mass/Vol] 61.0 ug/dL Normal 50.0-170.0 [facility] Comment on above: Performed By: #### C BC #### [facility] [address] [place] [address] Dr. Manda York LIPID PROFILEon 03-09-2022 CHOL-HDL RATIO NORM SEE BELOW Normal [facility] Comment on above: Result Comment: 3.3 - 4.4 LOW RISK 4.4 - 7.1 AVERAGE RISK 7.1 - 11.0 MODERATE RISK >11.0 HIGH RISK Performed By: #### U AMIC #### [facility] [address] [place] [address] Dr. Manda York Cholesterol [Mass/Vol] 260 mg/dL Critically high <=200 [facility] Comment on above: Performed By: #### U AMIC #### [facility] [address] [place] [address] Dr. Manda York Cholesterol in HDL [Mass/Vol] 38 mg/dL Critically low 40-60 [facility] Comment on above: Performed By: #### U AMIC #### [facility] [address] [address] [address] Manda York Cholesterol in LDL [Mass/Vol] 170.8 mg/dL Normal [facility] Comment on above: Performed By: #### U AMIC #### [facility] [address] [address] [address] Manda York Cholesterol.total/Ch olesterol in HDL [Mass ratio] 6.8 {ratio} Normal [facility] Comment on above: Performed By: #### U AMIC #### [facility] [address] [address] [address] Manda York HDL NORMAL > or = 60 mg/dl - LO W CARDIOVASCULAR RISK <40 mg/dl - HIGH CARDIOVASCULAR RISK Normal [facility] Comment on above: Performed By: #### U AMIC #### [facility] [address] [address] [address] Manda York LDL CALC NORMAL SEE BELOW Normal [facility] Comment on above: Result Comment: <100 mg/dl OPTIMAL 100 - 129 mg/dl NEAR OR ABOVE OPTIMAL 130 - 159 mg/dl BORDERLINE HIGH 160 - 189 mg/dl HIGH >190 mg/dl VERY HIGH Performed By: #### U AMIC #### [facility] [address] [address] [address] Manda York Triglyceride [Mass/Vol] 256 mg/dL Critically high <=150 [facility] Comment on above: Performed By: #### U AMIC #### [facility] [address] [address] [address] Manda York VLDL CALC 51.2 mg/dL Normal [facility] Comment on above: Performed By: #### U AMIC #### [facility] [address] [address] [address] Manda York PROF 14(COMP METB)on 022 Albumin [Mass/Vol] 3.8 g/dL Normal 3.4-5.0 [facility] Comment on above: Performed By: #### U AMIC #### [facility] [address] [place] [address] Dr. Manda York Albumin/Globulin [Mass ratio] 1.0 {ratio} Normal [facility] Comment on above: Performed By: #### U AMIC #### [facility] [address] [address] [address] Manda York ALP [Catalytic activity/Vol] 66 U/L Normal 46-116 [facility] Comment on above: Performed By: #### U AMIC #### [facility] [address] [address] [address] Manda York ALT [Catalytic activity/Vol] 27 U/L Normal 14-59 [facility] Comment on above: Performed By: #### U AMIC #### [facility] [address] [address] [address] Manda York Anion gap [Moles/Vol] 11.8 mmol/L Normal [facility] Comment on above: Performed By: #### U AMIC #### [facility] [address] [address] [address] Manda York AST [Catalytic activity/Vol] 9 U/L Critically low 15-37 [facility] Comment on above: Performed By: #### U AMIC #### [facility] [address] [address] [address] Manda York Bilirubin [Mass/Vol] 0.2 mg/dL Normal 0.2-1.0 [facility] Comment on above: Performed By: #### U AMIC #### [facility] [address] [address] [address] Manda York Calcium [Mass/Vol] 9.1 mg/dL Normal 8.5-10.1 [facility] Comment on above: Performed By: #### U AMIC #### [facility] [address] [address] [address] Manda York Chloride [Moles/Vol] 101 mmol/L Normal 98-107 [facility] Comment on above: Performed By: #### U AMIC #### [facility] [address] [address] [address] Manda York CO2 [Moles/Vol] 26.1 mmol/L Normal 21.0-32.0 [facility] Comment on above: Performed By: #### U AMIC #### [facility] [address] [address] [address] Manda York Creatinine [Mass/Vol] 0.80 mg/dL Normal 0.55-1.02 [facility] Comment on above: Performed By: #### U AMIC #### [facility] [address] [address] [address] Manda York EGFR-AF FILIPINO >60 Normal >=60 [facility] Comment on above: Performed By: #### U AMIC #### [facility] [address] [address] [address] Manda York EGFR-NON AF FILIPINO >60 Normal >=60 [facility] Comment on above: Performed By: #### U AMIC #### [facility] [address] [place] [address] Dr. Manda York Globulin (S) [Mass/Vol] 3.8 g/dL Normal [facility] Comment on above: Performed By: #### U AMIC #### [facility] [address] [place] [address] Dr. Manda York Glucose [Mass/Vol] 93 mg/dL Normal 74-106 [facility] Comment on above: Performed By: #### U AMIC #### [facility] [address] [place] [address] Dr. Manda York Potassium [Moles/Vol] 3.9 mmol/L Normal 3.5-5.1 [facility] Comment on above: Performed By: #### U AMIC #### [facility] [address] [place] [address] Dr. Manda York Protein [Mass/Vol] 7.6 g/dL Normal 6.4-8.2 [facility] Comment on above: Performed By: #### U AMIC #### [facility] [address] [address] [address] Manda York Sodium [Moles/Vol] 135 mmol/L Critically low 136-145 [facility] Comment on above: Performed By: #### U AMIC #### [facility] [address] [address] [address] Manda York Urea nitrogen [Mass/Vol] 10.0 mg/dL Normal 7.0-18.0 [facility] Comment on above: Performed By: #### U AMIC #### [facility] [address] [address] [address] Manda York Urea nitrogen/Creatinine [Mass ratio] 12.5 mg/mg Normal [facility] Comment on above: Performed By: #### U AMIC #### [facility] [address] [address] [address] Manda York TSHon 03-09-2022 TSH 0.610 uIU/mL Normal 0.358-3.740 [facility] Comment on above: Performed By: #### U AMIC #### [facility] [address] [address] [address] Manda York B2 MICROGLOBULIN [facility] 022 Ovmh-[id number] [Mass/Vol] 1.8 ug/mL 0.8 - 2.4 mg/L [facility] FERRITIN BLDon 03-05-2022 Ferritin [Mass/Vol] 33.2 ng/mL 14.7 - 2 05.1 ng/mL [facility] FOLATE SERUMon 03-05-2022 Folate [Mass/Vol] 6.6 ng/mL >4.7 ng/mL [facility] Iron and Iron binding capaci ty panelon 03-05-2022 Iron [Mass/Vol] 49 ug/dL 41 - 186 ug/dL [facility] Iron binding capacity [Mass/Vol] 392 ug/dL High 232 - 386 ug/dL [facility] Iron/TIBC [Molar ratio] 12.5 % Low 15.0 - 57.0 % [facility] CBC W Auto Differential pane l (Bld)on 03-04-2022 Basophils (Bld) [#/Vol] 0.07 10*3/uL <0.11 k/uL [facility] Basophils/100 WBC (Bld) 0.6 % [facility] Differential cell count method Nom (Bld) Auto [facility] Eosinophils (Bld) [#/Vol] 0.19 10*3/uL <0.46 k/uL [facility] Eosinophils/100 WBC (Bld) 1.7 % [facility] Erythrocyte distribution width (RBC) [Ratio] 14.7 % 11.5 - 15.0 % [facility] Hematocrit (Bld) [Volume fraction] 40.0 % 36.0 - 46.0 % [facility] Hemoglobin (Bld) [Mass/Vol] 13.0 g/dL 11.5 - 15.5 g/dL [facility] Immature granulocytes (Bld) [#/Vol] 0.07 10*3/uL <0.10 k/uL [facility] Immature granulocytes/100 WBC (Bld) 0.6 % [facility] Lymphocytes (Bld) [#/Vol] 3.31 10*3/uL 1.00 - 4.00 k/uL [facility] Lymphocytes/100 WBC (Bld) 30.2 % [facility] MCH (RBC) [Entitic mass] 28.9 pg 26.0 - 34.0 pg [facility] MCHC (RBC) [Mass/Vol] 32.5 g/dL 30.5 - 36.0 g/dL [facility] MCV (RBC) [Entitic vol] 88.9 fL 80.0 - 100.0 fL [facility] Monocytes (Bld) [#/Vol] 0.70 10*3/uL <0.87 k/uL [facility] Monocytes/100 WBC (Bld) 6.4 % [facility] Neutrophils (Bld) [#/Vol] 6.63 10*3/uL 1.45 - 7.50 k/uL [facility] Neutrophils/100 WBC (Bld) 60.5 % [facility] Nucleated RBC (Bld) [#/Vol] <0.01 k/uL [facility] [place] Nucleated RBC/100 WBC (Bld) [Ratio] 0.0 /100 WBC [facility] Platelet mean volume (Bld) [Entitic vol] 9.6 fL 9.0 - 12.7 fL [facility] Platelets (Bld) [#/Vol] 355 10*3/uL 150 - 400 k/uL [facility] RBC (Bld) [#/Vol] 4.50 10*6/uL 3.90 - 5.2 0 m/uL [facility] WBC (Bld) [#/Vol] 10.97 10*3/uL 3.70 - 11 .00 k/uL [facility] Calcium.ionized [Moles/Vol]o n 03-04-2022 Calcium.ionized (Bld) [Mass/Vol] 1.26 mmol/L 1.08 - 1.30 mmol/L [facility] Calcium.ionized adjusted to pH 7.4 (Bld) [Moles/Vol] 1.25 mmol/L 1.08 - 1.30 mmol/L [facility] Comprehensive metabolic 2000 panelon 03-04-2022 Albumin [Mass/Vol] 4.3 g/dL 3.9 - 4.9 g/dL [facility] ALP [Catalytic activity/Vol] 70 U/L 34 - 123 U/L [facility] ALT [Catalytic activity/Vol] 26 U/L 7 - 38 U/L [facility] Anion gap [Moles/Vol] 7 mmol/L Low 9 - 18 mmol/L [facility] AST [Catalytic activity/Vol] 12 U/L Low 13 - 35 U/L [facility] Bilirubin [Mass/Vol] 0.2 mg/dL 0.2 - 1 .3 mg/dL [facility] Calcium [Mass/Vol] 9.3 mg/dL 8.5 - 10. 2 mg/dL [facility] Chloride [Moles/Vol] 103 mmol/L 97 - 10 5 mmol/L [facility] CO2 [Moles/Vol] 28 mmol/L 22 - 30 mmol/L [facility] Creatinine [Mass/Vol] 0.69 mg/dL 0.58 - 0.96 mg/dL [facility] Estimated Glomerular Filtration Rate 112 mL/min/1.73m >=60 mL/min/1.73m [facility] Glucose [Mass/Vol] 100 mg/dL High 74 - 99 mg/dL [facility] Potassium [Moles/Vol] 3.9 mmol/L 3.7 - 5.1 mmol/L [facility] Protein [Mass/Vol] 7.0 g/dL 6.3 - 8.0 g/dL [facility] Sodium [Moles/Vol] 138 mmol/L 136 - 144 mmol/L [facility] Urea nitrogen [Mass/Vol] 12 mg/dL 7 - 21 mg/dL [facility] LD LACTATE DEHYDROon 022 LDH [Catalytic activity/Vol] 135 U/L 135 - 214 U/L [facility] [place] PHOSPHORUS INORGANICon 03-04 Phosphate [Mass/Vol] 3.2 mg/dL 2.7 - 4 .8 mg/dL [facility] URIC ACID BLOODon 03-04-2022 Urate [Mass/Vol] 5.2 mg/dL 2.5 - 6.6 mg/dL [facility] IMMUNOGLOBULINS IGA/IGM/IGG/ IGE QUANTITAon 02-20-2022 Immunoglobulin A, Qn, Serum 189 mg/dL Normal 87-352 [facility] Comment on above: Result Comment: Perf ormed at: CB Performed By: #### Tye MELO THYLC #### [facility] [address] [address] [address] Manda York Immunoglobulin E, Total 10 IU/mL Normal 6-495 [facility] Comment on above: Result Comment: Perf ormed at: BN Performed By: #### Tye MELO THYLC #### [facility] [address] [address] [address] Manda York Immunoglobulin G, Qn, Serum 598 mg/dL Normal 586-1602 [facility] Comment on above: Result Comment: Perf ormed at: CB Performed By: #### LEANN PATRICKC #### [facility] [address] [address] [address] Manda York Immunoglobulin M, Qn, Serum 493 mg/dL Critically high 26-217 [facility] Comment on above: Result Comment: Perf ormed at: CB Performed By: #### Tye MELO THYLC #### [facility] [address] [address] [address] Manda York CHRISTIAN by IFAon 02-19-2022 Antinuclear Antibodies, IFA Negative Normal [facility] Comment on above: Result Comment: Nega tive <1:80 Borderline 1:80 Positive >1:80 ICAP nomenclature: AC-[id number] For more information about Hep-2 cell patterns use ANApatterns.org, the official website for the International Consensus on Antinuclear Antibody (CHRISTIAN) Patterns (ICAP). Performed By: #### LEANN PATRICKC #### [facility] [address] [address] [address] Manda York THYROID ANTIBODIESon Thyroglobulin Antibody <1.0 Normal 0.0-0.9 [facility] Comment on above: Result Comment: Thyr oglobulin Antibody measured by [email or web address] Methodology Performed By: #### F T4 #### [facility] [address] [place] [address] Dr. Manda York Thyroid Peroxidase (TPO) Ab <8 Normal 0-34 [facility] Comment on above: Performed By: #### F T4 #### [facility] [address] [place] [address] Dr. Manda York PROTEIN ELECTROPHERESISon Albumin [Mass/Vol] 3.2 g/dL Normal 2.9-4.4 [facility] Comment on above: Performed By: #### F T4 #### [facility] [address] [place] [address] Dr. Manda York Albumin/Globulin [Mass ratio] 1.0 {ratio} Normal 0.7-1.7 [facility] Comment on above: Performed By: #### F T4 #### [facility] [address] [place] [address] Dr. Manda York Cyboe-8-Faorcipm 0.2 g/dL Normal 0.0-0.4 [facility] Comment on above: Performed By: #### F T4 #### [facility] [address] [place] [address] Dr. Manda York Uorua-0-Zcxppenm 0.9 g/dL Normal 0.4-1.0 [facility] Comment on above: Performed By: #### F T4 #### [facility] [address] [place] [address] Dr. Manda York Beta Globulin 1.2 g/dL Normal 0.7-1.3 [facility] Comment on above: Performed By: #### F T4 #### [facility] [address] [place] [address] Dr. Manda York Gamma Globulin 0.9 g/dL Normal 0.4-1.8 [facility] Comment on above: Performed By: #### F T4 #### [facility] [address] [place] [address] Dr. Manda York Globulin (S) [Mass/Vol] 3.2 g/dL Normal 2.2-3.9 [facility] Comment on above: Performed By: #### F T4 #### [facility] [address] [place] [address] Dr. Manda York M-Jose De Jesus Not Observed Normal Not Observed [facility] Comment on above: Performed By: #### F T4 #### [facility] [address] [place] [address] Dr. Manda York PDF . Normal [facility] Comment on above: Performed By: #### F T4 #### [facility] [address] [place] [address] Dr. Manda York Please note: Comment Normal [facility] Comment on above: Result Comment: Prot ein electrophoresis scan will follow via computer, mail, or simplex operator delivery. Performed By: #### F T4 #### [facility] [address] [place] [address] Dr. Manda York Protein [Mass/Vol] 6.4 g/dL Normal 6.0-8.5 [facility] Comment on above: Performed By: #### F T4 #### [facility] [address] [place] [address] Dr. Manda York SLE PROFILE Aon 02-16-2022 Anti-DNA (DS) Ab Qn 9 IU/mL Normal 0-9 [facility] Comment on above: Result Comment: Nega tive <5 Equivocal 5 - 9 Positive >9 Performed By: #### S LUIGI MELO #### [facility] [address] [place] [address] Dr. Manda York Antichromatin Antibodies <0.2 Normal 0.0-0.9 [facility] Comment on above: Performed By: #### S LUIGI MELO #### [facility] [address] [place] [address] Dr. Manda York RA Latex Turbid. <10.0 Normal <14.0 [facility] Comment on above: Performed By: #### S LEANN MELOC #### [facility] [address] [place] [address] Dr. Manda York DISEASE CASE MANAGER Antibodies <0.2 Normal 0.0-0.9 [facility] Comment on above: Performed By: #### LEANN PATRICKC #### [facility] [address] [place] [address] Dr. Manda York Sjogryaniv'tye Anti-SS-A <0.2 Normal 0.0-0.9 [facility] Comment on above: Performed By: #### S LUIGI MELO #### [facility] [address] [place] [address] Dr. Manda Solorzanoogryaniv'tye Anti-SS-B <0.2 Normal 0.0-0.9 [facility] Comment on above: Performed By: #### LUIGI PATRICK #### [facility] [address] [place] [address] Dr. Manda York Schneider Antibodies <0.2 Normal 0.0-0.9 [facility] Comment on above: Performed By: #### LUIGI PATRICK #### [facility] [address] [place] [address] Dr. Manda York ANTISTREPTOLYSIN O AB (ASO)o n 02-15-2022 Antistreptolysin O Ab 49.6 IU/mL Normal 0.0-200.0 [facility] Comment on above: Performed By: #### A SOAB #### [facility] [address] [place] [address] Dr. Manda York MICROALBUMIN URINEon 022 Albumin, Urine <3.0 Normal Not Estab. [facility] Comment on above: Result Comment: Ve rified by repeat analysis Performed By: #### C BC #### [facility] [address] [place] [address] Dr. Manda York T4, T3U, FTI LABCORPon 02-15 Free Thyroxine Index 2.6 Normal 1.2-4.9 [facility] Comment on above: Performed By: #### S LUIGI MELO #### [facility] [address] [place] [address] Dr. Manda York T3 Uptake 26 % Normal 24-39 [facility] Comment on above: Performed By: #### S LEANN MELOC #### [facility] [address] [place] [address] Dr. Manda York T4 [Mass/Vol] 9.9 ug/dL Normal 4.5-12.0 [facility] Comment on above: Performed By: #### S LEANN MELO #### [facility] [address] [place] [address] Dr. Manda York CBC AUTO DIFFon 02-14-2022 BASO # 0.1 103/ul Normal 0.0-0.1 [facility] Comment on above: Performed By: #### U AMIC #### [facility] [address] [place] [address] Dr. Manda York Basophils/100 WBC (Bld) 0.6 % Normal 0.2-2.0 [facility] Comment on above: Performed By: #### U AMIC #### [facility] [address] [place] [address] Dr. Manda York EO # 0.3 103/ul Normal 0.0-0.7 [facility] Comment on above: Performed By: #### U AMIC #### [facility] [address] [place] [address] Dr. Manda York Eosinophils/100 WBC (Bld) 3.4 % Normal 0.9-7.0 [facility] Comment on above: Performed By: #### U AMIC #### [facility] [address] [place] [address] Dr. Manda York Erythrocyte distribution width (RBC) [Ratio] 14.6 % Normal 11.0-15.0 [facility] Comment on above: Performed By: #### U AMIC #### [facility] [address] [place] [address] Dr. Manda York Hematocrit (Bld) [Volume fraction] 39.1 % Normal 36.0-48.0 [facility] Comment on above: Performed By: #### U AMIC #### [facility] [address] [address] [address] Manda York Hemoglobin (Bld) [Mass/Vol] 12.4 g/dL Normal 12.0-16.0 [facility] Comment on above: Performed By: #### U AMIC #### [facility] [address] [address] [address] Manda York IG # 0.03 10e3/ul Normal 0.00-0.03 [facility] Comment on above: Performed By: #### U AMIC #### [facility] [address] [address] [address] Manda York IG % 0.3 % Normal 0.0-0.5 [facility] Comment on above: Performed By: #### U AMIC #### [facility] [address] [address] [address] Manda York LYMPH # 3.6 103/ul Normal 1.2-3.8 [facility] Comment on above: Performed By: #### U AMIC #### [facility] [address] [address] [address] Manda York Lymphocytes/100 WBC (Bld) 39.9 % Normal 20.5-60.0 [facility] Comment on above: Performed By: #### U AMIC #### [facility] [address] [address] [address] Manda York MANUAL DIFF REQ NO Normal [facility] Comment on above: Performed By: #### U AMIC #### [facility] [address] [address] [address] Manda York MCH (RBC) [Entitic mass] 28.4 pg Normal 26.7-34.0 [facility] Comment on above: Performed By: #### U AMIC #### [facility] [address] [address] [address] Manda York MCHC (RBC) [Mass/Vol] 31.7 g/dL Normal 29.9-35.2 [facility] Comment on above: Performed By: #### U AMIC #### [facility] [address] [address] [address] Manda York MCV (RBC) [Entitic vol] 89.7 fL Normal 81.0-99.0 [facility] Comment on above: Performed By: #### U AMIC #### [facility] [address] [address] [address] Manda York MONO # 0.7 103/ul Normal 0.3-0.8 [facility] Comment on above: Performed By: #### U AMIC #### [facility] [address] [address] [address] Manda York Monocytes/100 WBC (Bld) 7.3 % Normal 1.7-12.0 [facility] Comment on above: Performed By: #### U AMIC #### [facility] [address] [place] [address] Dr. Manda York NEUT # 4.4 103/ul Normal 1.4-6.5 [facility] Comment on above: Performed By: #### U AMIC #### [facility] [address] [place] [address] Dr. Manda York Neutrophils/100 WBC (Bld) 48.5 % Normal 43.0-75.0 [facility] Comment on above: Performed By: #### U AMIC #### [facility] [address] [place] [address] Dr. Manda York Platelet mean volume (Bld) [Entitic vol] 10.1 fL Normal 9.5-13.5 [facility] Comment on above: Performed By: #### U AMIC #### [facility] [address] [place] [address] Dr. Manda York PLT 310 103/ul Normal 150-450 [facility] Comment on above: Performed By: #### U AMIC #### [facility] [address] [address] [address] Manda York RBC 4.36 106/ul Normal 4.20-5.40 [facility] Comment on above: Performed By: #### U AMIC #### [facility] [address] [place] [address] Dr. Manda York WBC 9.0 103/ul Normal 4.0-11.0 [facility] Comment on above: Performed By: #### U AMIC #### [facility] [address] [place] [address] Dr. Manda York CRPon 02-14-2022 CRP [Mass/Vol] mg/L Normal <=1.0 [facility] Comment on above: Performed By: #### U AMIC #### [facility] [address] [place] [address] Dr. Manda York CULTURE URINEon 02-14-2022 CULTURE URINE Culture Observations : LIGHT GROWTH OF MIXED GENITAL AMBER. NO POTENTIAL PATHOGENS SEEN. Normal [facility] Comment on above: Performed By: #### C BC #### [facility] [address] [place] [address] Dr. Manda York PROF 14(COMP METB)on 022 Albumin [Mass/Vol] 3.5 g/dL Normal 3.4-5.0 [facility] Comment on above: Performed By: #### U AMIC #### [facility] [address] [place] [address] Dr. Manda York Albumin/Globulin [Mass ratio] 1.0 {ratio} Normal [facility] Comment on above: Performed By: #### U AMIC #### [facility] [address] [place] [address] Dr. Manda York ALP [Catalytic activity/Vol] 71 U/L Normal 46-116 [facility] Comment on above: Performed By: #### U AMIC #### [facility] [address] [place] [address] Dr. Manda York ALT [Catalytic activity/Vol] 46 U/L Normal 14-59 [facility] Comment on above: Performed By: #### U AMIC #### [facility] [address] [place] [address] Dr. Manda York Anion gap [Moles/Vol] 11.6 mmol/L Normal [facility] Comment on above: Performed By: #### U AMIC #### [facility] [address] [address] [address] Manda York AST [Catalytic activity/Vol] 15 U/L Normal 15-37 [facility] Comment on above: Performed By: #### U AMIC #### [facility] [address] [address] [address] Manda York Bilirubin [Mass/Vol] 0.2 mg/dL Normal 0.2-1.0 [facility] Comment on above: Performed By: #### U AMIC #### [facility] [address] [address] [address] Manda oYrk Calcium [Mass/Vol] 8.7 mg/dL Normal 8.5-10.1 [facility] Comment on above: Performed By: #### U AMIC #### [facility] [address] [address] [address] Manda York Chloride [Moles/Vol] 104 mmol/L Normal 98-107 [facility] Comment on above: Performed By: #### U AMIC #### [facility] [address] [address] [address] Manda York CO2 [Moles/Vol] 25.1 mmol/L Normal 21.0-32.0 [facility] Comment on above: Performed By: #### U AMIC #### [facility] [address] [address] [address] Manda York Creatinine [Mass/Vol] 0.80 mg/dL Normal 0.55-1.02 [facility] Comment on above: Performed By: #### U AMIC #### [facility] [address] [address] [address] Manda York EGFR-AF FILIPINO >60 Normal >=60 [facility] Comment on above: Performed By: #### U AMIC #### [facility] [address] [address] [address] Manda York EGFR-NON AF FILIPINO >60 Normal >=60 [facility] Comment on above: Performed By: #### U AMIC #### [facility] [address] [address] [address] Manda York Globulin (S) [Mass/Vol] 3.6 g/dL Normal [facility] Comment on above: Performed By: #### U AMIC #### [facility] [address] [address] [address] Manda York Glucose [Mass/Vol] 92 mg/dL Normal 74-106 [facility] Comment on above: Performed By: #### U AMIC #### [facility] [address] [address] [address] Manda York Potassium [Moles/Vol] 3.7 mmol/L Normal 3.5-5.1 [facility] Comment on above: Performed By: #### U AMIC #### [facility] [address] [address] [address] Manda York Protein [Mass/Vol] 7.1 g/dL Normal 6.4-8.2 [facility] Comment on above: Performed By: #### U AMIC #### [facility] [address] [address] [address] Manda York Sodium [Moles/Vol] 137 mmol/L Normal 136-145 [facility] Comment on above: Performed By: #### U AMIC #### [facility] [address] [address] [address] Manda York Urea nitrogen [Mass/Vol] 17.0 mg/dL Normal 7.0-18.0 [facility] Comment on above: Performed By: #### U AMIC #### [facility] [address] [address] [address] Manda York Urea nitrogen/Creatinine [Mass ratio] 21.2 mg/mg Normal [facility] Comment on above: Performed By: #### U AMIC #### [facility] [address] [address] [address] Manda York SED RATE [facility] 2021 SED RATE 40 mm/hr Critically high <=20 [facility] Comment on above: Performed By: #### S EDR #### [facility] [address] [address] [address] Manda York TSHon 02-14-2022 TSH 1.155 uIU/mL Normal 0.358-3.740 [facility] Comment on above: Performed By: #### U AMIC #### [facility] [address] [address] [address] Manda York UA RANDOM W/MICROSCOPICon BACTERIA NONE SEEN Normal NONE SEEN [facility] Comment on above: Performed By: #### U AMIC #### [facility] [address] [place] [address] Dr. Manda York Bilirubin Ql (U) Negative Normal NEGATIVE [facility] Comment on above: Performed By: #### U AMIC #### [facility] [address] [place] [address] Dr. Manda York CAST NONE SEEN Normal NONE SEEN [facility] Comment on above: Performed By: #### U AMIC #### [facility] [address] [place] [address] Dr. Manda York Clarity (U) CLEAR Normal CLEAR [facility] Comment on above: Performed By: #### U AMIC #### [facility] [address] [place] [address] Dr. Manda York Color (U) LT. YELLOW Normal YELLOW [facility] Comment on above: Performed By: #### U AMIC #### [facility] [address] [place] [address] Dr. Manda York Crystals LM Nom (Urine sed) NONE SEEN Normal NONE SEEN [facility] Comment on above: Performed By: #### U AMIC #### [facility] [address] [place] [address] Dr. Manda York Epithelial cells LM Ql (Urine sed) RARE Normal NONE SEEN /RARE [facility] Comment on above: Performed By: #### U AMIC #### [facility] [address] [place] [address] Dr. Manda York Glucose Ql (U) Negative Normal NEGATIVE [facility] Comment on above: Performed By: #### U AMIC #### [facility] [address] [address] [address] Manda York Hemoglobin Ql (U) Negative Normal NEGATIVE [facility] Comment on above: Performed By: #### U AMIC #### [facility] [address] [address] [address] Manda York Ketones Ql (U) Negative Normal NEGATIVE [facility] Comment on above: Performed By: #### U AMIC #### [facility] [address] [address] [address] Manda York LEUKOCYTES Negative Normal NEGATIVE [facility] Comment on above: Performed By: #### U AMIC #### [facility] [address] [place] [address] Dr. Manda York MUCOUS NONE SEEN Normal NONE SEEN [facility] Comment on above: Performed By: #### U AMIC #### [facility] [address] [place] [address] Dr. Manda York Nitrite Ql (U) Negative Normal NEGATIVE [facility] Comment on above: Performed By: #### U AMIC #### [facility] [address] [place] [address] Dr. Manda York pH (U) 6.0 [pH] Normal 5-9 [facility] Comment on above: Performed By: #### U AMIC #### [facility] [address] [place] [address] Dr. Manda York RBC NONE SEEN Abnormal 0-2 [facility] Comment on above: Performed By: #### U AMIC #### [facility] [address] [place] [address] Dr. Manda York SPEC GRAVITY 1.005 Normal 1.005-<=1.02 5 [facility] Comment on above: Performed By: #### U AMIC #### [facility] [address] [place] [address] Dr. Manda York UA PROTEIN Negative Normal NEGATIVE/ TRACE [facility] Comment on above: Performed By: #### U AMIC #### [facility] [address] [place] [address] Dr. Manda York Urobilinogen Qn (U) 0.2 {Carmella'U}/dL Normal 0.2 - 1. 0 [facility] Comment on above: Performed By: #### U AMIC #### [facility] [address] [place] [address] Dr. Manda York WBC NONE SEEN Normal NONE SEEN [facility] Comment on above: Performed By: #### U AMIC #### [facility] [address] [place] [address] Dr. Manda York URIC ACID SERUMon 02-14-2022 Urate [Mass/Vol] 4.2 mg/dL Normal 2.6-6.0 [facility] Comment on above: Performed By: #### U AMIC #### [facility] [address] [place] [address] Dr. Manda York VITAMIN D 25 OHon 02-14-2022 VIT D 25-OH 22.4 ng/mL Normal [facility] Comment on above: Performed By: #### F T4 #### [facility] [address] [place] [address] Dr. Manda York VIT D RANGES SEE BELOW Normal [facility] Comment on above: Result Comment: <20 ng/mL Vit D deficient 20 - <30 ng/mL Vit D insufficient 30 - 100 ng/mL Vit D sufficient >100 ng/mL Potential Toxicity Performed By: #### F T4 #### [facility] [address] [place] [address] Dr. Manda York METANEPHRINES FRAC. QNT 24 H R URINEon 11-28-2021 Metanephrine, U,24hr Comment Normal 36-209 [facility] Comment on above: Result Comment: No t otal volume submitted. Unable to calculate 24 hour result. Performed By: #### S LUIGI MELO #### [facility] [address] [place] [address] Dr. Manda York Metanephrine, Ur 57 ug/L Normal Undefined [facility] Comment on above: Performed By: #### S LEANN MELOC #### [facility] [address] [place] [address] Dr. Manda York Normetanephr.,U,24h Comment Normal 131-612 [facility] Comment on above: Result Comment: No t otal volume submitted. Unable to calculate 24 hour result. Performed By: #### LEANN PATRICK #### [facility] [address] [place] [address] Dr. Manda York Normetanephrine, Ur 116 ug/L Normal Undefined [facility] Comment on above: Performed By: #### LEANN PATRICK #### [facility] [address] [place] [address] Dr. Manda York METANEPHRINES PLASMA FREEon 11-27-2021 Metanephrine, Pl 22.1 pg/mL Normal 0.0-88.0 [facility] Comment on above: Performed By: #### LEANN PATRICK #### [facility] [address] [place] [address] Dr. Manda York Normetanephrine, Pl 50.7 pg/mL Normal 0.0-218.9 [facility] Comment on above: Performed By: #### LEANN PATRICK #### [facility] [address] [place] [address] Dr. Manda York CMV PLASMA PCRon 11-19-2021 CMV Quant DNA PCR (Plasma) Negative Normal Negative [facility] Comment on above: Result Comment: No C MV DNA detected. The quantitative range of this assay is 200 to 1 million IU/mL. Performed By: #### LEANN PATRICK #### [facility] [address] [place] [address] Dr. Manda York log10 CMV Qn DNA Pl UPTCAL Normal [facility] Comment on above: Result Comment: Unab le to calculate result since non-numeric result obtained for component test. Performed By: #### LEANN PATRICKC #### [facility] [address] [place] [address] Dr. Manda York CMV AB IGMon 11-18-2021 Cytomegalovirus (CMV) Ab, IgM 43.2 AU/mL Critically high 0.0-29.9 [facility] Comment on above: Result Comment: Nega tive <30.0 Equivocal 30.0 - 34.9 Positive >34.9 A positive result is generally indicative of acute infection, reactivation or persistent IgM production. Performed By: #### S LUIGI MELO #### [facility] [address] [place] [address] Dr. Manda York CMV AB, IGGon 11-18-2021 Cytomegalovirus (CMV) Ab, IgG >10.00 Critically high 0.00-0.59 [facility] Comment on above: Result Comment: Nega tive <0.60 Equivocal 0.60 - 0.69 Positive >0.69 Performed By: #### C MVIGG #### [facility] [address] [place] [address] Dr. Manda York CBC AUTO DIFFon 11-17-2021 BASO # 0.1 103/ul Normal 0.0-0.1 [facility] Comment on above: Performed By: #### C BC #### [facility] [address] [place] [address] Dr. Manda York Basophils/100 WBC (Bld) 0.6 % Normal 0.2-2.0 [facility] Comment on above: Performed By: #### C BC #### [facility] [address] [place] [address] Dr. Manda York EO # 0.2 103/ul Normal 0.0-0.7 [facility] Comment on above: Performed By: #### C BC #### [facility] [address] [place] [address] Dr. Manda York Eosinophils/100 WBC (Bld) 2.3 % Normal 0.9-7.0 [facility] Comment on above: Performed By: #### C BC #### [facility] [address] [place] [address] Dr. Manda York Erythrocyte distribution width (RBC) [Ratio] 14.2 % Normal 11.0-15.0 [facility] Comment on above: Performed By: #### C BC #### [facility] [address] [place] [address] Dr. Manda York Hematocrit (Bld) [Volume fraction] 40.2 % Normal 36.0-48.0 [facility] Comment on above: Performed By: #### C BC #### [facility] [address] [place] [address] Dr. Manda York Hemoglobin (Bld) [Mass/Vol] 12.8 g/dL Normal 12.0-16.0 [facility] Comment on above: Performed By: #### C BC #### [facility] [address] [place] [address] Dr. Manda York IG # 0.02 10e3/ul Normal 0.00-0.03 [facility] Comment on above: Performed By: #### C BC #### [facility] [address] [place] [address] Dr. Manda York IG % 0.2 % Normal 0.0-0.5 [facility] Comment on above: Performed By: #### C BC #### [facility] [address] [place] [address] Dr. Manda York LYMPH # 2.5 103/ul Normal 1.2-3.8 [facility] Comment on above: Performed By: #### C BC #### [facility] [address] [place] [address] Dr. Manda York Lymphocytes/100 WBC (Bld) 24.9 % Normal 20.5-60.0 [facility] Comment on above: Performed By: #### C BC #### [facility] [address] [place] [address] Dr. Manda York MANUAL DIFF REQ NO Normal [facility] Comment on above: Performed By: #### C BC #### [facility] [address] [place] [address] Dr. Manda York MCH (RBC) [Entitic mass] 27.9 pg Normal 26.7-34.0 [facility] Comment on above: Performed By: #### C BC #### [facility] [address] [place] [address] Dr. Manda York MCHC (RBC) [Mass/Vol] 31.8 g/dL Normal 29.9-35.2 [facility] Comment on above: Performed By: #### C BC #### [facility] [address] [address] [address] Manda York MCV (RBC) [Entitic vol] 87.6 fL Normal 81.0-99.0 [facility] Comment on above: Performed By: #### C BC #### [facility] [address] [address] [address] Manda York MONO # 0.6 103/ul Normal 0.3-0.8 [facility] Comment on above: Performed By: #### C BC #### [facility] [address] [address] [address] Manda York Monocytes/100 WBC (Bld) 6.3 % Normal 1.7-12.0 [facility] Comment on above: Performed By: #### C BC #### [facility] [address] [place] [address] Dr. Manda York NEUT # 6.5 103/ul Normal 1.4-6.5 [facility] Comment on above: Performed By: #### C BC #### [facility] [address] [place] [address] Dr. Manda York Neutrophils/100 WBC (Bld) 65.7 % Normal 43.0-75.0 [facility] Comment on above: Performed By: #### C BC #### [facility] [address] [address] [address] Manda York Platelet mean volume (Bld) [Entitic vol] 10.1 fL Normal 9.5-13.5 [facility] Comment on above: Performed By: #### C BC #### [facility] [address] [address] [address] Manda York PLT 304 103/ul Normal 150-450 [facility] Comment on above: Performed By: #### C BC #### [facility] [address] [address] [address] Manda York RBC 4.59 106/ul Normal 4.20-5.40 [facility] Comment on above: Performed By: #### C BC #### [facility] [address] [place] [address] Dr. Manda York WBC 9.9 103/ul Normal 4.0-11.0 [facility] Comment on above: Performed By: #### C BC #### [facility] [address] [place] [address] Dr. Manda York PROF 14(COMP METB)on 022 Albumin [Mass/Vol] 3.7 g/dL Normal 3.4-5.0 [facility] Comment on above: Performed By: #### C BC #### [facility] [address] [place] [address] Dr. Manda York Albumin/Globulin [Mass ratio] 1.0 {ratio} Normal [facility] Comment on above: Performed By: #### C BC #### [facility] [address] [place] [address] Dr. Manda York ALP [Catalytic activity/Vol] 65 U/L Normal 46-116 [facility] Comment on above: Performed By: #### C BC #### [facility] [address] [place] [address] Dr. Manda York ALT [Catalytic activity/Vol] 35 U/L Normal 14-59 [facility] Comment on above: Performed By: #### C BC #### [facility] [address] [place] [address] Dr. Manda York Anion gap [Moles/Vol] 13.0 mmol/L Normal [facility] Comment on above: Performed By: #### C BC #### [facility] [address] [place] [address] Dr. Manda York AST [Catalytic activity/Vol] 12 U/L Critically low 15-37 [facility] Comment on above: Performed By: #### C BC #### [facility] [address] [place] [address] Dr. Manda York Bilirubin [Mass/Vol] 0.2 mg/dL Normal 0.2-1.0 [facility] Comment on above: Performed By: #### C BC #### [facility] [address] [place] [address] Dr. Manda York Calcium [Mass/Vol] 8.7 mg/dL Normal 8.5-10.1 [facility] Comment on above: Performed By: #### C BC #### [facility] [address] [place] [address] Dr. Manda York Chloride [Moles/Vol] 104 mmol/L Normal 98-107 [facility] Comment on above: Performed By: #### C BC #### [facility] [address] [place] [address] Dr. Manda York CO2 [Moles/Vol] 24.9 mmol/L Normal 21.0-32.0 [facility] Comment on above: Performed By: #### C BC #### [facility] [address] [place] [address] Dr. Manda York Creatinine [Mass/Vol] 0.77 mg/dL Normal 0.55-1.02 [facility] Comment on above: Performed By: #### C BC #### [facility] [address] [place] [address] Dr. Manda York EGFR-AF FILIPINO >=60 Normal >=60 [facility] Comment on above: Performed By: #### C BC #### [facility] [address] [place] [address] Dr. Manda York EGFR-NON AF FILIPINO >=60 Normal >=60 [facility] Comment on above: Performed By: #### C BC #### [facility] [address] [place] [address] Dr. Manda York Globulin (S) [Mass/Vol] 3.8 g/dL Normal [facility] Comment on above: Performed By: #### C BC #### [facility] [address] [place] [address] Dr. Manda York Glucose [Mass/Vol] 110 mg/dL Critically high 74-106 [facility] Comment on above: Performed By: #### C BC #### [facility] [address] [place] [address] Dr. Manda York Potassium [Moles/Vol] 3.9 mmol/L Normal 3.5-5.1 [facility] Comment on above: Performed By: #### C BC #### [facility] [address] [place] [address] Dr. Manda York Protein [Mass/Vol] 7.5 g/dL Normal 6.4-8.2 [facility] Comment on above: Performed By: #### C BC #### [facility] [address] [address] [address] Manda York Sodium [Moles/Vol] 138 mmol/L Normal 136-145 [facility] Comment on above: Performed By: #### C BC #### [facility] [address] [place] [address] Dr. Manda York Urea nitrogen [Mass/Vol] 17.0 mg/dL Normal 7.0-18.0 [facility] Comment on above: Performed By: #### C BC #### [facility] [address] [place] [address] Dr. Manda York Urea nitrogen/Creatinine [Mass ratio] 22.1 mg/mg Normal [facility] Comment on above: Performed By: #### C BC #### [facility] [address] [place] [address] Dr. Manda York SED RATE [facility] 2021 SED RATE 45 mm/hr Critically high <=20 [facility] Comment on above: Performed By: #### F T4 #### [facility] [address] [place] [address] Dr. Manda York CHRISTIAN EIA W/REFLEX 5 BIOMARKER Son 10-06-2021 CHRISTIAN Direct Positive Abnormal Negative [facility] Comment on above: Performed By: #### C BC #### [facility] [address] [place] [address] Dr. Manda York Anti-DNA (DS) Ab Qn 10 IU/mL Critically high 0-9 [facility] Comment on above: Result Comment: Nega tive <5 Equivocal 5 - 9 Positive >9 Performed By: #### C BC #### [facility] [address] [place] [address] Dr. Manda York DISEASE CASE MANAGER Antibodies <0.2 Normal 0.0-0.9 [facility] Comment on above: Performed By: #### C BC #### [facility] [address] [place] [address] [address] [address] Manda York SEE BELOW: Comment Normal [facility] Comment on above: Result Comment: Auto antibody Disease Association Condition Frequency --------- Antinuclear Antibody, SLE, mixed connective Direct (CHRISTIAN-D) tissue diseases --------- dsDNA SLE 40 - 60% --------- Chromatin Drug induced SLE 90% SLE 48 - 97% --------- SSA (Ro) SLE 25 - 35% Sjogren's Syndrome 40 - 70% Lupus 100% --------- SSB (La) SLE 10% Sjogren's Syndrome 30% --------- Sm (anti-Schneider) SLE 15 - 30% --------- DISEASE CASE MANAGER Mixed Connective Tissue Disease 95% (U1 nRNP, SLE 30 - 50% anti-ribonucleoprotein) Polymyositis and/or Dermatomyositis 20% --------- Scl-70 (antiDNA Scleroderma (diffuse) 20 - 35% topoisomerase) Crest 13% --------- Felicita-1 Polymyositis and/or Dermatomyositis 20 - 40% --------- Centromere B Scleroderma - Crest variant 80% Performed By: #### C BC #### [facility] [address] [place] [address] Dr. Manda Solorzanoogryaniv'tye Anti-SS-A <0.2 Normal 0.0-0.9 [facility] Comment on above: Performed By: #### C BC #### [facility] [address] [place] [address] Dr. Manda Solorzanoogryaniv'tye Anti-SS-B <0.2 Normal 0.0-0.9 [facility] Comment on above: Performed By: #### C BC #### [facility] [address] [place] [address] Dr. Yilan York Schneider Antibodies <0.2 Normal 0.0-0.9 [facility] Comment on above: Performed By: #### C BC #### [facility] [address] [place] [address] Dr. Manda York CMV PLASMA PCRon 10-06-2021 CMV Quant DNA PCR (Plasma) Negative Normal Negative [facility] Comment on above: Result Comment: No C MV DNA detected. The quantitative range of this assay is 200 to 1 million IU/mL. Performed By: #### C MVPL #### [facility] [address] [place] [address] Dr. Manda York log10 CMV Qn DNA Pl UPTCAL Normal [facility] Comment on above: Result Comment: Unab le to calculate result since non-numeric result obtained for component test. Performed By: #### C MVPL #### [facility] [address] [place] [address] Dr. Manda York CMV AB IGMon 2021 Cytomegalovirus (CMV) Ab, IgM 35.5 AU/mL Critically high 0.0-29.9 [facility] Comment on above: Result Comment: Nega tive <30.0 Equivocal 30.0 - 34.9 Positive >34.9 A positive result is generally indicative of acute infection, reactivation or persistent IgM production. Performed By: #### S LEANN MELOC #### [facility] [address] [place] [address] Dr. Manda York CMV AB, IGGon 2021 Cytomegalovirus (CMV) Ab, IgG 6.30 U/mL Critically high 0.00-0.59 [facility] Comment on above: Result Comment: Nega tive <0.60 Equivocal 0.60 - 0.69 Positive >0.69 Performed By: #### S LEANN MELOC #### [facility] [address] [place] [address] Dr. Manda York CBC AUTO DIFFon 10-03-2021 BASO # 0.1 103/ul Normal 0.0-0.1 [facility] Comment on above: Performed By: #### C BC #### [facility] [address] [place] [address] Dr. Manda York Basophils/100 WBC (Bld) 0.7 % Normal 0.2-2.0 [facility] Comment on above: Performed By: #### C BC #### [facility] [address] [place] [address] Dr. Manda York EO # 0.2 103/ul Normal 0.0-0.7 [facility] Comment on above: Performed By: #### C BC #### [facility] [address] [place] [address] Dr. Manda York Eosinophils/100 WBC (Bld) 2.0 % Normal 0.9-7.0 [facility] Comment on above: Performed By: #### C BC #### [facility] [address] [place] [address] Dr. Manda York Erythrocyte distribution width (RBC) [Ratio] 14.4 % Normal 11.0-15.0 [facility] Comment on above: Performed By: #### C BC #### [facility] [address] [place] [address] Dr. Manda York Hematocrit (Bld) [Volume fraction] 37.2 % Normal 36.0-48.0 [facility] Comment on above: Performed By: #### C BC #### [facility] [address] [place] [address] Dr. Manda York Hemoglobin (Bld) [Mass/Vol] 12.3 g/dL Normal 12.0-16.0 [facility] Comment on above: Performed By: #### C BC #### [facility] [address] [place] [address] Dr. Manda York IG # 0.02 10e3/ul Normal 0.00-0.03 [facility] Comment on above: Performed By: #### C BC #### [facility] [address] [place] [address] Dr. Manda York IG % 0.2 % Normal 0.0-0.5 [facility] Comment on above: Performed By: #### C BC #### [facility] [address] [place] [address] Dr. Manda York LYMPH # 2.1 103/ul Normal 1.2-3.8 [facility] Comment on above: Performed By: #### C BC #### [facility] [address] [place] [address] Dr. Manda York Lymphocytes/100 WBC (Bld) 26.4 % Normal 20.5-60.0 [facility] Comment on above: Performed By: #### C BC #### [facility] [address] [place] [address] Dr. Manda York MANUAL DIFF REQ NO Normal [facility] Comment on above: Performed By: #### C BC #### [facility] [address] [place] [address] Dr. Manda York MCH (RBC) [Entitic mass] 29.2 pg Normal 26.7-34.0 [facility] Comment on above: Performed By: #### C BC #### [facility] [address] [place] [address] Dr. Manda York MCHC (RBC) [Mass/Vol] 33.1 g/dL Normal 29.9-35.2 [facility] Comment on above: Performed By: #### C BC #### [facility] [address] [place] [address] Dr. Manda York MCV (RBC) [Entitic vol] 88.4 fL Normal 81.0-99.0 [facility] Comment on above: Performed By: #### C BC #### [facility] [address] [place] [address] Dr. Manda York MONO # 0.5 103/ul Normal 0.3-0.8 [facility] Comment on above: Performed By: #### C BC #### [facility] [address] [place] [address] Dr. Manda York Monocytes/100 WBC (Bld) 6.7 % Normal 1.7-12.0 [facility] Comment on above: Performed By: #### C BC #### [facility] [address] [place] [address] Dr. Manda York NEUT # 5.2 103/ul Normal 1.4-6.5 [facility] Comment on above: Performed By: #### C BC #### [facility] [address] [place] [address] Dr. Manda York Neutrophils/100 WBC (Bld) 64.0 % Normal 43.0-75.0 [facility] Comment on above: Performed By: #### C BC #### [facility] [address] [place] [address] Dr. Manda York Platelet mean volume (Bld) [Entitic vol] 10.5 fL Normal 9.5-13.5 [facility] Comment on above: Performed By: #### C BC #### [facility] [address] [place] [address] Dr. Manda York PLT 265 103/ul Normal 150-450 [facility] Comment on above: Performed By: #### C BC #### [facility] [address] [place] [address] Dr. Manda York RBC 4.21 106/ul Normal 4.20-5.40 [facility] Comment on above: Performed By: #### C BC #### [facility] [address] [place] [address] Dr. Manda York WBC 8.1 103/ul Normal 4.0-11.0 [facility] Comment on above: Performed By: #### C BC #### [facility] [address] [place] [address] Dr. Manda York CRPon 10-03-2021 CRP [Mass/Vol] mg/L Normal <=1.0 [facility] Comment on above: Performed By: #### F T4 #### [facility] [address] [place] [address] Dr. Manda [facility] mm/hr Critically high <=20 [facility] Comment on above: Performed By: #### C BC #### [facility] [address] [place] [address] Dr. Manda York CHLORIDE (POC)Ordered By: Jae Holley on 10-07-2020 Chloride [Moles/Vol] 106 mmol/L 98 - 10 7 mmol/L [employer] Work Phone: Catheterization and angiogra phy procedure details panelOrdered By: Jaren Holley on 10-07-2020 Cardiac Diagnostic R eport Demographics Patient TERA Torres Date of Study 10/07/2020 Name Date of 1980 Gender Female Age 40 year(s) Race Room 1965391^LEYDI^JAREN Height: 67 inch, 170.18 cm Number Corporate [id number] Weight: 234 pounds, 106.1 kg ID # Patient [id number] BSA: 2.16 m^2 BMI: 36.65 kg/m^2 Acct # MR # [id number] Performing Jaren Holley Physician Referring # Physician Assisting Physician Additional Comments H&P reviewed and patient examined by performing physician prior to the procedure on 10/04/20 at No changes noted. If changes, see note below. ASA Classification / Mallampati : per Physician. Procedure Procedure Type: Diagnostic procedure: Lt Heart, Coronary Angio, LVgram Complications: - No complication Indications: - Atypical angina - Coronary risk factors - Abnormal nuclear perfusion test Conclusions Procedure Summary Normal coronary arteries Normal LV function Recommendations Medical treatments Risk factor modification. Signature Angiographic Findings Cardiac Arteries and Lesion Findings LMCA: Normal 0% stenosis. LAD: Normal 0% stenosis. LCx: Normal 0% stenosis. RCA: Normal 0% stenosis. Coronary Tree Dominance: Right LV Analysis LV function assessed as:Normal. Ejection Fraction + +---+ !Method !EF%! + +---+ !LV gram !55 ! + +---+ Procedure Data Procedure Start Time: 10/07/2020 10:25. Procedure End Time: 10/07/2020 10:34. The procedure was explained in detail to the patient. Risks, complications and alternative treatments were reviewed. Written consent was obtained. Diagnostic Cath Status: Elective Entry Locations - Retrograde Percutaneous access was performed through the Right Radial artery. A 6 Fr sheath was inserted. Hemostasis was successfully obtained using Vasc Band. Procedure Medications: - Versed I.V. 2 mg. - Fentanyl I.V. 50 mcg. - Lidocaine HCl 1% 10mg/ml S.Q. 5 ml. - Nitroglycerin I.A. 400 mcg. - Heparin I.A. 2000 units. - Verapamil I.A. 2.5 mg. - Fentanyl I.V. 50 mcg. Catheters and Wires: - 6 Fr. Radial TIG 4.0 was used for Left ventriculography. - 6 Fr. Radial TIG 4.0 was used for Left coronary angiography. - 6 Fr. Radial TIG 4.0 was used for Right coronary angiography. Contrast Material: - Isovue 19871 ml Fluoroscopy Time: Diagnostic: 2:12 minutes. Total: 2:12 minutes. Medical History Allergies - Bactrim. Risk Factors The patient risk factors include:obesity, treated hypercholesterolemia, treated hypertension, diet-treated diabetes mellitus, chronic lung disease, last creatinine: 0.6 mg/dl, creatinine clearance: 208.84 ml/min, dyslipidemia and Current - Every day tobacco use. Admission Data Admission Date: 10/07/2020 Admission Status: Outpatient. -The patient's anginal syndrome was assessed as CCS II according to the Tynan clinical classification. Hemodynamics Condition: Baseline Room Air Estimated: 246.52Heart Rate: 103 bpm Pressure +-----+ + !Site !Pressure ! +-----+ + !AO !106/68 (86) ! +-----+ + !AO !104/ (87) ! +-----+ + !AO !112/66 (86) ! +-----+ + !LV !126/0 ,1 ! +-----+ + !LV !126/0 ,5 ! +-----+ + Valve Gradients and Areas + +---------+---- -----+---------+ + ---------+ + !Valve !Peak !Mean !Area !Index !Flow !Source ! + +---------+---- -----+---------+ + ---------+ + !Aortic (more content not included)... [employer] Work Phone: Jr, pn Incoming C ardio Results From [facility] - 10/07/2020 10:37 AM EDT Cardiac Diagnostic Report Demographics Patient TERA Torres Date of Study 10/07/2020 Name Date of 1980 Gender Female Age 40 year(s) Race Room [id number]^LEYDI^JAREN Height: 67 inch, 170.18 cm Number Corporate [id number] Weight: 234 pounds, 106.1 kg ID # Patient [id number] BSA: 2.16 m^2 BMI: 36.65 kg/m^2 Acct # MR # [id number] Performing Jaren Holley Physician Referring # Physician Assisting Physician Additional Comments H&P reviewed and patient examined by performing physician prior to the procedure on 10/04/20 at No changes noted. If changes, see note below. ASA Classification / Mallampati : per Physician. Procedure Procedure Type: Diagnostic procedure: Lt Heart, Coronary Angio, LVgram Complications: - No complication Indications: - Atypical angina - Coronary risk factors - Abnormal nuclear perfusion test Conclusions Procedure Summary Normal coronary arteries Normal LV function Recommendations Medical treatments Risk factor modification. Signature Angiographic Findings Cardiac Arteries and Lesion Findings LMCA: Normal 0% stenosis. LAD: Normal 0% stenosis. LCx: Normal 0% stenosis. RCA: Normal 0% stenosis. Coronary Tree Dominance: Right LV Analysis LV function assessed as:Normal. Ejection Fraction + +--- + !Method !EF%! + +--- + !LV gram !55 ! + +--- + Procedure Data Procedure Start Time: 10/07/2020 10:25. Procedure End Time: 10/07/2020 10:34. The procedure was explained in detail to the patient. Risks, complications and alternative treatments were reviewed. Written consent was obtained. Diagnostic Cath Status: Elective Entry Locations - Retrograde Percutaneous access was performed through the Right Radial artery. A 6 Fr sheath was inserted. Hemostasis was successfully obtained using Vasc Band. Procedure Medications: - Versed I.V. 2 mg. - Fentanyl I.V. 50 mcg. - Lidocaine HCl 1% 10mg/ml S.Q. 5 ml. - Nitroglycerin I.A. 400 mcg. - Heparin I.A. 2000 units. - Verapamil I.A. 2.5 mg. - Fentanyl I.V. 50 mcg. Catheters and Wires: - 6 Fr. Radial TIG 4.0 was used for Left ventriculography. - 6 Fr. Radial TIG 4.0 was used for Left coronary angiography. - 6 Fr. Radial TIG 4.0 was used for Right coronary angiography. Contrast Material: - Isovue 57290 ml Fluoroscopy Time: Diagnostic: 2:12 minutes. Total: 2:12 minutes. Medical History Allergies - Bactrim. Risk Factors The patient risk factors include:obesity, treated hypercholesterolemia, treated hypertension, diet-treated diabetes mellitus, chronic lung disease, last creatinine: 0.6 mg/dl, creatinine clearance: 208.84 ml/min, dyslipidemia and Current - Every day tobacco use. Admission Data Admission Date: 10/07/2020 Admission Status: Outpatient. -The patient's anginal syndrome was assessed as CCS II according to the Tynan clinical classification. Hemodynamics Condition: Baseline Room Air Estimated: 246.52Heart Rate: 103 bpm Pressure +-----+ + !Site !Pressure ! +-----+ + !AO !106/68 (86) ! +-----+ + !AO !104/71 (87) ! +-----+ + !AO !112/66 (86) ! +-----+ + !LV !126/0 ,1 ! +-----+ + !LV !126/0 ,5 ! +-----+ + Valve Gradients and Areas + +---------+---- -----+---------+ + ---------+ + !Valve !Peak !Mean !Area !Index !Flow !Source ! + +---------+---- -----+---------+ + ---------+ + !Aortic !16 !12 ! ! ! ! ! + +---------+---- -----+---------+ + ---------+ + !Aortic !16 !12 ! ! ! ! ! + +---------+---- -----+---------+ + ---------+ + Shunts Oxygen Values O2 Fmmqaoll639.4O2 Alvdhuxtayz023.52 [employer] Phone: [employer] Phone: [employer] Phone: Creatinine W/GFR Point of Ca reOrdered By: Jaren Holley on 10-07-2020 Creatinine [Mass/Vol] 0.64 mg/dL 0.51 - 1.19 mg/dL [employer] Phone: GFR Non- >60 >60 mL/min [employer] Phone: GFR/1.73 sq M.predicted MDRD (S/P/Bld) [Vol rate/Area] mL/min/{1.73_m2} >60 mL/min [employer] Phone: GFR/1.73 sq M.predicted MDRD (S/P/Bld) [Vol rate/Area] [employer] Phone: Comment on above: Average GFR for 40-4 9 years old: 99 mL/min/1.73sq m Chronic Kidney Disease: <60 mL/min/1.73sq m Kidney failure: <15 mL/min/1.73sq m eGFR calculated using average adult body mass. Additional eGFR calculator available at: http://www.Vrvana/multiple_crcl_2012.htm Hemoglobin and hematocrit, b loodOrdered By: Jaren Holley on 10-07-2020 Hematocrit (Bld) [Volume fraction] 41 % 36 - 46 % [employer] Phone: Hemoglobin (Bld) [Mass/Vol] 14.0 g/dL 12.0 - 16.0 g/dL [employer] Phone: No Panel InformationOrdered By: Jaren Holley on 10-07-2020 [employer] Phone: POCT GlucoseOrdered By: Anu Holley on 10-07-2020 Glucose [Mass/Vol] 98 mg/dL 74 - 100 mg/dL [employer] Phone: POCT urine pregnancyOrdered By: Jaren Holley on 10-07-2020 Beta HCG ( test) Ql (U) Negative NEGATIVE [employer] Phone: Comment on above: Specimens with hCG l evels near the threshold of the test (25 mIU/mL) may give a negative or indeterminate result. In such cases, another test should be performed with a new specimen in 48-72 hours. If early is suspected clinically in this setting, correlation with quantitative serum b-hCG level is suggested. [employer] Phone: POTASSIUM (POC)Ordered By: Al Holley on 10-07-2020 Potassium [Moles/Vol] 3.8 mmol/L 3.5 - 4.5 mmol/L [employer] Phone: Platelet Counton 10-07-2020 Platelets (Bld) [#/Vol] 299 10*3/uL Normal 138-453 [facility] Comment on above: Performed By: #### P LT #### [employer] [address] [place] [id number] [place] Instructor: Rick Serrano MD Platelet countOrdered By: Jae Holley on 10-07-2020 Platelets (Bld) [#/Vol] 299 10*3/uL [employer] Phone: [employer] Phone: SODIUM (POC)Ordered By: Anu Holley on 10-07-2020 Sodium [Moles/Vol] 141 mmol/L 138 - 146 mmol/L [employer] Phone: Coding Summary.on 01-12-2019 Coding Summary. CODING DATE: 019 FINAL [facility] STATUS: Home (Routine DC) PAYOR: Medicaid EAPG DESCRIPTION 0413 CARDIOGRAM 0457 VENIPUNCTURE 0407 LEVEL II CLOTTING TESTS 0403 ORGAN OR DISEASE ORIENTED PANELS 0408 LEVEL I HEMATOLOGY TESTS 0401 LEVEL II CHEMISTRY TESTS 0471 PLAIN FILM 0604 CHEST PAIN ADMIT DX: REASON FOR VISIT DX: R07.9 Chest pain, unspecified FINAL DX: PRINCIPAL: R07.9 Chest pain, unspecified SECONDARY: F17.210 Nicotine dependence, cigarettes, uncomplicated E66.9 Obesity, unspecified Z68.34 Body mass index (BMI) 34.0-34.9, adult Z79.899 Other buttermaker (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 However, the narrative phrase printed from the coding software may appear abbreviated, or result in slightly different terminology. Coded By: Luz Judd Date Saved: 01/12/2019 10:25 am [facility] Coding Summary. CODING DATE: 019 [facility] STATUS: Home (Routine DC) PAYOR: Medicaid EAPG DESCRIPTION 0413 CARDIOGRAM 0457 VENIPUNCTURE 0407 LEVEL II CLOTTING TESTS 0403 ORGAN OR DISEASE ORIENTED PANELS 0408 LEVEL I HEMATOLOGY TESTS 0401 LEVEL II CHEMISTRY TESTS 0471 PLAIN FILM 0604 CHEST PAIN ADMIT DX: REASON FOR VISIT DX: R07.9 Chest pain, unspecified FINAL DX: PRINCIPAL: R07.9 Chest pain, unspecified SECONDARY: F17.210 Nicotine dependence, cigarettes, uncomplicated E66.9 Obesity, unspecified Z68.34 Body mass index (BMI) 34.0-34.9, adult Z79.899 Other buttermaker (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 However, the narrative phrase printed from the coding software may appear abbreviated, or result in slightly different terminology. Revised Coded By: Luz Judd Revised Date Saved: 01/12/2019 10:25 am [facility] XR Chest 2 Viewson 9 XR Chest 2 Views Exam Date/Time: 01/11/2019 18:05 EDT Reason for Exam: Chest pain Report IMPRESSION: NO EVIDENCE OF ACTIVE CHEST DISEASE. CLINICAL HISTORY: Chest pain. COMMENT: The heart is normal in size. The mediastinum is unremarkable. The lungs appear clear. No infiltration nor pleural effusion is evident. FINAL REPORT Dictated: 01/12/2019 7:50 am Micheal Valenzuela M.D. Signed (Electronic Signature): 01/12/2019 7:50 am Signed by: Micheal Valenzuela M.D. Transcribed by: BILL Technologist: ZOILA [facility] Auto Diffon 01-11-2019 Basophils/100 WBC (Bld) 0.8 % Normal 0.0-2.[address] [facility] Comment on above: Order Comment: Order Added by Discern Expert. Performed By: #### 1 9563027, 2821431, 3856255, 2918421, 78071095, 9520145, 4378238, 9309629, 3321992, 34264045, 7556920 #### [facility] [address] [place] [address] Basophils/Leukocytes Auto (Bld) [Pure # fraction] 0.1 E9/L Normal 0.0-0.[address] [facility] Comment on above: Order Comment: Order Added by Discern Expert. Performed By: #### 1 4275232, 9039798, 2291550, 4401604, 49675088, 1130813, 7516616, 2048057, 0119724, 14832678, 9334503 #### [facility] [address] [place] [address] Eosinophils/100 WBC (Bld) 1.9 % Normal 0.0-8.[address] [facility] Comment on above: Order Comment: Order Added by Discern Expert. Performed By: #### 1 6605659, 7560533, 8067308, 0037548, 96840467, 2017884, 4731860, 1427547, 3623923, 98111283, 4114544 #### [facility] [address] [place] [address] Eosinophils/Leukocyt es Auto (Bld) [Pure # fraction] 0.1 E9/L Normal 0.0-0.[address] [facility] Comment on above: Order Comment: Order Added by Discern Expert. Performed By: #### 1 5250684, 4155157, 8900411, 4335294, 37202028, 8227753, 4553353, 4061076, 6891241, 20214767, 7606820 #### [facility] [address] [place] [address] Lymphocytes/100 WBC (Bld) 28.0 % Normal 14.0-50.[address] [facility] Comment on above: Order Comment: Order Added by Discern Expert. Performed By: #### 1 6786104, 4714775, 1543814, 9215681, 21269885, 2700556, 8576443, 9399248, 7957181, 56220374, 1212723 #### [facility] [address] [place] [address] Lymphocytes/Leukocyt es Auto (Bld) [Pure # fraction] 2.2 E9/L Normal 1.0-4.[address] [facility] Comment on above: Order Comment: Order Added by Discern Expert. Performed By: #### 1 0130647, 0141134, 3144078, 8174637, 12002694, 9730463, 6277966, 9487281, 7926340, 65254281, 3400747 #### [facility] [address] [place] [address] Monocytes/100 WBC (Bld) 7.0 % Normal 4.0-14.[address] [facility] Comment on above: Order Comment: Order Added by Discern Expert. Performed By: #### 1 5025004, 4103717, 7596296, 3354502, 79117204, 7875954, 0522233, 5250416, 5097510, 21045805, 0017221 #### [facility] [address] [place] [address] Monocytes/Leukocytes Auto (Bld) [Pure # fraction] 0.6 E9/L Normal 0.2-1.[address] [facility] Comment on above: Order Comment: Order Added by Discern Expert. Performed By: #### 1 6086149, 5139155, 5539014, 3119578, 63753486, 1894500, 8247884, 6352452, 2893551, 36485790, 7013824 #### [facility] [address] [place] [address] Neutrophils/100 WBC (Bld) 62.3 % Normal 36.0-75.[address] [facility] Comment on above: Order Comment: Order Added by Discern Expert. Performed By: #### 1 3655220, 3711077, 5643411, 5193592, 73023779, 5865309, 5252318, 1563224, 8925045, 18173907, 1748257 #### [facility] [address] [place] [address] Neutrophils/Leukocyt es Auto (Bld) [Pure # fraction] 4.9 E9/L Normal 2.0-7.[address] [facility] Comment on above: Order Comment: Order Added by Discern Expert. Performed By: #### 1 0813092, 1824840, 1763084, 0944672, 02349832, 7158993, 8613661, 3755291, 6292275, 67262996, 3598231 #### [facility] [address] [place] [address] BMPon 01-11-2019 Creatinine [Mass/Vol] 0.7 mg/dL Normal 0.5-1.[address] [facility] Comment on above: Performed By: #### 1 2395292, 3081929, 2506516, 8685327, 01191316, 2278065, 7458394, 2178568, 8754989, 39392282, 6764784 #### [facility] [address] [place] [address] Urea nitrogen [Mass/Vol] 11 mg/dL Normal 5-[address] [facility] Comment on above: Performed By: #### 1 6115065, 9031620, 6805346, 3386900, 83597236, 7080455, 8719382, 5949086, 8619025, 99663980, 8740192 #### [facility] [address] [place] [address] Urea nitrogen/Creatinine [Mass ratio] 16 No Units Normal 10-[address] [facility] Comment on above: Performed By: #### 1 5591485, 9239107, 6766501, 0872893, 92613277, 0327404, 4595571, 8579648, 9674453, 99663821, 4147089 #### [facility] [address] [place] [address] Anion gap [Moles/Vol] 14 mmol/L Normal 6-[address] [facility] Comment on above: Performed By: #### 1 6924713, 8968498, 1559726, 7710784, 52737216, 2724465, 7580496, 4418936, 9751127, 57790880, 7061745 #### [facility] [address] [place] [address] Calcium [Mass/Vol] 8.9 mg/dL Normal 8.9-11.[address] [facility] Comment on above: Performed By: #### 1 7773677, 9686677, 1652290, 3012466, 85785941, 3583546, 3713465, 4056918, 2380265, 27186713, 8820165 #### [facility] [address] [place] [address] Chloride [Moles/Vol] 107 mmol/L Normal 101-111 [facility] Comment on above: Performed By: #### 1 3113872, 2078897, 9658773, 0709451, 85517051, 0623367, 7030506, 1957165, 3049396, 49409337, 1403152 #### [facility] [address] [place] [address] CO2 [Moles/Vol] 22 mmol/L Normal 21-[address] [facility] Comment on above: Performed By: #### 1 3186376, 7511056, 1739090, 7746310, 25696992, 4382623, 1026536, 9505953, 6725176, 97898150, 4298258 #### [facility] [address] [place] [address] Glucose [Mass/Vol] 122 mg/dL Normal 55-[address] [facility] Comment on above: Result Comment: If t his glucose result represents a fasting glucose, interpretation should refer to the following reference range: 55-99 mg/dL Performed By: #### 1 0972954, 3714329, 7615573, 6602168, 65285703, 3766363, 6298648, 5524067, 3143357, 42187806, 8722499 #### [facility] [address] [place] [address] Potassium [Moles/Vol] 3.8 mmol/L Normal 3.5-5.[address] [facility] Comment on above: Performed By: #### 1 3067025, 9379495, 7099871, 0625126, 26307120, 4735591, 3326860, 9743537, 6277628, 72631343, 8309983 #### [facility] [address] [place] [address] Sodium [Moles/Vol] 139 mmol/L Normal 135-[address] [facility] Comment on above: Performed By: #### 1 8041357, 4950739, 8117271, 7452021, 05421536, 1308492, 6229949, 0689580, 5461507, 08027937, 2724280 #### [facility] [address] [place] [address] CBC w/ Auto Diffon 9 Erythrocyte distribution width (RBC) [Ratio] 14.0 % Normal 10.9-14.[address] [facility] Comment on above: Performed By: #### 1 8725200, 9025155, 8257708, 6009952, 39678474, 2643165, 1353424, 1843958, 0150043, 22793096, 8553494 #### [facility] [address] [place] [address] Hematocrit (Bld) [Volume fraction] 39.9 % Normal 34.0-46.[address] [facility] Comment on above: Performed By: #### 1 8914632, 0375156, 8504538, 9445301, 86950682, 0188815, 6413930, 6020847, 4080582, 74863279, 9408525 #### [facility] [address] [place] [address] Hemoglobin (Bld) [Mass/Vol] 13.5 g/dL Normal 12.0-16.[address] [facility] Comment on above: Performed By: #### 1 3787396, 3436491, 3294920, 9290223, 30666414, 1520265, 3077455, 4959285, 6674407, 08321659, 8662018 #### [facility] [address] [place] [address] MCH (RBC) [Entitic mass] 29.4 pg Normal 27.0-34.[address] [facility] Comment on above: Performed By: #### 1 0058144, 0436421, 3485228, 6541047, 46535686, 9118702, 5066830, 4344574, 5458938, 43944355, 5785668 #### [facility] [address] [place] [address] MCHC (RBC) [Mass/Vol] 33.7 g/dL Normal 33.3-35.[address] [facility] Comment on above: Performed By: #### 1 7189151, 1867130, 1314401, 2480999, 02893639, 2512431, 6506614, 6775409, 9701755, 68400120, 3363319 #### [facility] [address] [place] [address] MCV (RBC) [Entitic vol] 87.4 fL Normal 80.0-100.[address] [facility] Comment on above: Performed By: #### 1 9775582, 0645242, 8568720, 9525108, 63763605, 7577086, 8337848, 3349970, 3085435, 16943583, 0109378 #### [facility] [address] [place] [address] Platelet mean volume (Bld) [Entitic vol] 8.5 fL Normal 6.4-10.[address] [facility] Comment on above: Performed By: #### 1 9096745, 3852681, 1968773, 6056395, 25824786, 3873846, 1931897, 3859655, 2488272, 54333852, 7011263 #### [facility] [address] [place] [address] Platelets (Bld) [#/Vol] 244.0 E9/L Normal 150.0-500.[address] [facility] Comment on above: Performed By: #### 1 2732786, 7662241, 0638834, 2253670, 44764642, 2011594, 1078579, 0303798, 1444692, 47222248, 6816527 #### [facility] [address] [place] [address] RBC (Bld) [#/Vol] 4.6 E12/L Normal 4.3-5.[address] [facility] Comment on above: Performed By: #### 1 2966927, 8562021, 6315646, 6393022, 15572919, 0861597, 9679933, 2852297, 7344828, 35399287, 9378618 #### [facility] [address] [place] [address] WBC corrected for nucl RBC Auto (Bld) [#/Vol] 7.9 E9/L Normal 4.0-11.[address] [facility] Comment on above: Performed By: #### 1 1798806, 6805583, 0563204, 6375612, 08961155, 3948373, 9009982, 0753075, 4326862, 39662390, 5911820 #### [facility] [address] [place] [address] D-Dimeron 01-11-2019 Fibrin D-dimer FEU (PPP) [Mass/Vol] 265 ng/mL Normal 215-[address] [facility] Comment on above: Result Comment: This D-Dimer assay may be used in conjunction with a non-high clinical pretest probability assessment to exclude deep-vein thrombosis(DVT). For exclusion of venous thrombosis or pulmonary embolism the analyte D-Dimer should not be used as an aid in patients with: Therapeutic dose anticoagulant therapy for >24 hours Fibrinolytic therapy within previous 7 days Trauma or surgery within previous 4 weeks Disseminated malignacies Aortic aneurysm Sepsis, severe infections, pneumonia, severe skin infections Liver cirrhosis Performed By: #### 1 0242175, 7250052, 6381316, 0356029, 34220687, 6775027, 2863994, 5720285, 8364888, 40073064, 2632093 #### [facility] [address] [place] [address] ED Clinical Summaryon 2018 ED Clinical Summary (Inserted Image. Melissa ble to display) [address] [address] ED Clinical Summary Person Information Name: JONES HALEY [place] Age: 38 Years : 1980 12:00 AM Sex: Female Language: Bolivian PCP: Charles Mitchell DO Marital Status: Single Phone: [phone] Visit Id: Visit Reason: Chest pain; CHEST DISCOMFORT - RANDOM, OFF AND ON SINCE LAST NIGHT Speciality: Acuity: 3 Enc Type: Emergency Med Service: Emergency Arrival: 01/11/2019 3:44 PM Discharge: 01/11/2019 6:42 PM LOS: 000 02:58 Checkin: 01/11/2019 3:44 PM Checkout: 01/11/2019 6:42 PM Dispo Type: Home (Routine DC) EVENTS: Event Name Event Status Request Date/Time Start Date/Time Complete Date/Time Arrive Complete 01/11/2019 3:44 PM 01/11/2019 3:44 PM 01/11/2019 3:44 PM Document Home Meds Request 01/11/2019 3:44 PM Triage Complete 01/11/2019 3:44 PM 01/11/2019 3:52 PM 01/11/2019 3:52 PM Bed Assign Complete 01/11/2019 3:46 PM 01/11/2019 3:46 PM 01/11/2019 3:[address] Exam Complete 01/11/2019 3:46 PM 01/11/2019 3:47 PM 01/11/2019 3:47 PM RN Exam Complete 01/11/2019 3:46 PM 01/11/2019 4:06 PM 01/11/2019 4:06 PM EKG Complete 01/11/2019 3:47 PM 01/11/2019 3:51 PM Registration Complete 01/11/2019 3:47 PM 01/11/2019 3:55 PM 01/11/2019 3:55 PM Isolation Screening Request 01/11/2019 3:52 PM Reg Complete Request 01/11/2019 3:55 PM Reg Bed Request Complete 01/11/2019 3:55 PM 01/11/2019 3:55 PM 01/11/2019 3:55 PM Pending Labs Request 01/11/2019 4:13 PM Lab Complete 01/11/2019 4:13 PM 01/11/2019 5:11 PM Patient Care Request 01/11/2019 4:13 PM Pending Labs Complete 01/11/2019 4:50 PM 01/11/2019 4:50 PM 01/11/2019 5:08 PM Lab Complete 01/11/2019 4:50 PM 01/11/2019 4:50 PM 01/11/2019 5:08 PM Pending Labs Complete 01/11/2019 5:11 PM 01/11/2019 5:11 PM 01/11/2019 5:11 PM Lab Complete 01/11/2019 5:11 PM 01/11/2019 5:11 PM 01/11/2019 5:11 PM X-Ray Complete 01/11/2019 5:45 PM 01/11/2019 6:05 PM Wet Read Request 01/11/2019 6:05 PM Discharge Complete 01/11/2019 6:34 PM 01/11/2019 6:42 PM 01/11/2019 6:42 PM Transfer Complete 01/11/2019 6:42 PM 01/11/2019 6:42 PM 01/11/2019 6:42 PM ADDRESS: [address] [place] [phone] [facility] DOC NOTES: MEDICAL INFORMATION: Prescriptions Given: PATIENT EDUCATION INFORMATION: Instructions: Smoking Cessation; Chest Pain (Nonspecific) Follow up: With: Address: When: [place] [phone] Business (1) Within 2 to 3 days Comments: Return to ED if symptoms worsen DIAGNOSIS: 1:Chest pain Normal [facility] ED Note-Physicianon 01-12-20 19 ED Note-Physician Basic Information Time Seen: Orin Browne DO 01/11/2019 15:47 Chief Complaint Pt with intermittent left side chest pain that started last night. Denies cardiac hx. No SOB. No N/V. No pain meds today. History of Present Illness Pt 38 yo female presents with chest pain. Pt with intermittent episodes of left sided chest pain since last night, sometimes seem related to movements. No shortness of breath or palpitations. She has had pleurisy in the past. Pt has been taking Phentermine and Topamax for two months for weight loss and is worried that she may have something wrong with her heart. She is smoker and takes control pills. She has never had a PE or DVT. Never had a cardiac stress test. No falls or chest wall injury. No cough, headache, neck pain, abdominal pain, nausea, vomiting, diarrhea, edema, palpitations, fevers, chills, or sweats. Has lost 15 lbs in the past two months. Review of Systems All organ systems are reviewed. Pertinent positive and negative findings as mentioned in the HPI. Physical Exam Vitals & Measurements T: 36.7 ?C (Oral) HR: 73(Monitored) RR: 18 BP: 106/59 SpO2: 98% HT: 170 cm WT: 100.5 kg BMI: 34.78 General: alert, no acute distress, alone Skin: warm, dry, intact, no rashes to the back or trunk Head: atraumatic, normocephalic Neck: full ROM, no tenderness to palpation Eye: vision grossly intact, clear conjunctiva ENT: moist mucous membranes, nares clear, voice normal Cardiovascular: regular rate and rhythm, no murmur, no edema Respiratory: Lungs CTA, no wheezes/rales/rhonchi, non-labored Chest wall: no tenderness with palpation Gastrointestinal: soft, non-tender, normal bowel sounds, no guarding/rebound tenderness/rigidity Back: full ROM, no tenderness with palpation Extremities: no deformity, full ROM, normal strength, ambulatory Neurological: alert and oriented, normal speech, normal sensory and motor exam Medical Decision Making 1830: ED tests discussed with Pt. Her HEART score is 1 putting her at low risk for adverse cardiac event. Her EKG has no ischemic changes, negative D-dimer, and negative troponin. Informed conversation about things that she would need to return to the ED for. All questions answered. Pt feels comfortable with this plan of care. Assessment/Plan 1. Chest pain (R07.9: Chest pain, unspecified) Orders: Automated Diff Basic Metabolic Panel CBC w/ Auto Diff D-Dimer ED Cardiac Monitoring eGFR Oxygen Saturation Troponin 0 Hr. Troponin 3 Hr. XR Chest 2 Views Disposition Plan Patient Discharge Condition Stable Discharge Disposition Home Discharge Prescription List Prescriptions No active prescription medications Follow-up With When Contact Information [facility] Within 2 to 3 days [address] [place] [address]- [facility] (1) Additional Instructions: Return to ED if symptoms worsen Patient Education Smoking Cessation Chest Pain (Nonspecific) Problem List/Past Medical History Ongoing Anxiety Arthritis Obesity Smoker Historical Insulin resistance Procedure/Surgical History Cystectomy, D&C - Dilatation and curettage, Diagnostic laparoscopy. Medications Inpatient No active inpatient medications Home metformin 500 mg ER Tab, 250 mg, Oral, BID Allergies Bactrim (sick) Latex (Rash) codeine (Trouble breathing 17-JUN-2015 17:55:17<$>) Social History Alcohol - Denies Alcohol Use, 01/11/2019 Current, 09/13/2018 Substance Abuse - Denies Substance Abuse, 01/11/2019 Current, 09/13/2018 Tobacco - High Risk, 01/11/2019 10 or more cigarettes (1/2 pack or more)/day in last 30 days Tobacco Use:., 09/13/2018 Lab Results WBC: 7.9 E9/L (01/11/19 16:46:00 EDT) RBC: 4.6 E12/L (01/11/19 16:46:00 EDT) Hgb: 13.5 gm/dL (01/11/19 16:46:00 EDT) Hct: 39.9 % (01/11/19 16:46:00 EDT) MCV: 87.4 fL (01/11/19 16:46:00 EDT) MCH: 29.4 pg (01/11/19 16:46:00 EDT) MCHC: 33.7 gm/dL (01/11/19 16:46:00 EDT) RDW: 14 % (01/11/19 16:46:00 EDT) Platelet: 244 E9/L (01/11/19 16:46:00 EDT) MPV: 8.5 fL (01/11/19 16:46:00 EDT) Neutro Auto: 62.3 % (01/11/19 16:46:00 EDT) Lymph Auto: 28 % (01/11/19 16:46:00 EDT) [place] Auto: 7 % (01/11/19 16:46:00 EDT) Eos Auto: 1.9 % (01/11/19 16:46:00 EDT) Basophil Auto: 0.8 % (01/11/19 16:46:00 EDT) Neutro Absolute: 4.9 E9/L (01/11/19 16:46:00 EDT) Lymph Absolute: 2.2 E9/L (01/11/19 16:46:00 EDT) [place] Absolute: 0.6 E9/L (01/11/19 16:46:00 EDT) Eos Absolute: 0.1 E9/L (01/11/19 16:46:00 EDT) Basophil Absolute: 0.1 E9/L (01/11/19 16:46:00 EDT) D-Dimer: 265 ng/mL (01/11/19 16:46:00 EDT) Glucose Lvl: 122 mg/dL (01/11/19 16:46:00 EDT) BUN: 11 mg/dL (01/11/19 16:46:00 EDT) Creatinine: 0.7 mg/dL (01/11/19 16:46:00 EDT) eGFR: >60 (01/11/19 16:46:00 EDT) eGFR AA: >60 (01/11/19 16:46:00 EDT) BUN/Creat Ratio: 16 (01/11/19 16:46:00 EDT) Sodium Lvl: 139 mmol/L (01/11/19 16:46:00 EDT) Potassium Lvl: 3.8 mmol/L (01/11/19 16:46:00 EDT) Chloride: 107 mmol/L (01/11/19 16:46:00 EDT) CO2: 22 mmol/L (01/11/19 16:46:00 EDT) AGAP: 14 mEq/L (01/11/19 16:46:00 EDT) Calcium Lvl: 8.9 mg/dL (01/11/19 16:46:00 EDT) Troponin: <0.03 (01/11/19 16:46:00 EDT) Diagnostic Results XR Chest 2 Views * Preliminary * 01/11/19 18:31:23 NEGATIVE: No infiltrate, mass or other acute cardiopulmonary abnormality Read By: Orin Browne DO EKG Results EC01/11/19: SINUS RHYTHM RATE 84, NORMAL LA AND QRS, NO ST ELEVATION OR DEPRSSION, NORMAL AXIS, NORMAL QTC NORMAL ECG Signed By: Orin Browne DO 01/11/2019 15:54:[address] [facility] Comment on above: Result Comment: Elec tronically Signed By: Orin Browne DO\.br\Date and Time Signed: 01/11/19 18:36 EDT ED Patient Education Noteon 01-11-2019 ED Patient Education Note Family Medicine Smoking Cessation Quitting smoking is important to your health and has many advantages. However, it is not always easy to quit since nicotine is a very addictive drug. Oftentimes, people try 3 times or more before being able to quit. This document explains the best ways for you to prepare to quit smoking. Quitting takes hard work and a lot of effort, but you can do it. ADVANTAGES OF QUITTING SMOKING ? You will live longer, feel better, and live better. ? Your body will feel the impact of quitting smoking almost immediately. ? Within 20 minutes, blood pressure decreases. Your pulse returns to its normal level. ? After 8 hours, carbon monoxide levels in the blood return to normal. Your oxygen level increases. ? After 24 hours, the chance of having a heart attack starts to decrease. Your breath, hair, and body stop smelling like smoke. ? After 48 hours, damaged nerve endings begin to recover. Your sense of taste and smell improve. ? After 72 hours, the body is virtually free of nicotine. Your bronchial tubes relax and breathing becomes easier. ? After 2 to 12 weeks, lungs can hold more air. Exercise becomes easier and circulation improves. ? The risk of having a heart attack, stroke, cancer, or lung disease is greatly reduced. ? After 1 year, the risk of coronary heart disease is cut in half. ? After 5 years, the risk of stroke falls to the same as a nonsmoker. ? After 10 years, the risk of lung cancer is cut in half and the risk of other cancers decreases significantly. ? After 15 years, the risk of coronary heart disease drops, usually to the level of a nonsmoker. ? If you are , quitting smoking will improve your chances of having a healthy baby. ? The people you live with, especially any children, will be healthier. ? You will have extra money to spend on things other than cigarettes. QUESTIONS TO THINK ABOUT BEFORE ATTEMPTING TO QUIT You may want to talk about your answers with your health care provider. ? Why do you want to quit? ? If you tried to quit in the past, what helped and what did not? ? What will be the most difficult situations for you after you quit? How will you plan to handle them? ? Who can help you through the tough times? Your family? Friends? A health care provider? ? What pleasures do you get from smoking? What ways can you still get pleasure if you quit? Here are some questions to ask your health care provider: ? How can you help me to be successful at quitting? ? What medicine do you think would be best for me and how should I take it? ? What should I do if I need more help? ? What is smoking withdrawal like? How can I get information on withdrawal? GET READY ? Set a quit date. ? Change your environment by getting rid of all cigarettes, ashtrays, matches, and lighters in your home, car, or work. Do not let people smoke in your home. ? Review your past attempts to quit. Think about what worked and what did not. GET SUPPORT AND ENCOURAGEMENT You have a better chance of being successful if you have help. You can get support in many ways. ? Tell your family, friends, and coworkers that you are going to quit and need their support. Ask them not to smoke around you. ? Get individual, group, or telephone counseling and support. Programs are available at local hospitals and health centers. Call your local health department for information about programs in your area. ? Spiritual beliefs and practices may help some smokers quit. ? Download a quit meter on your computer to keep track of quit statistics, such as how long you have gone without smoking, cigarettes not smoked, and money saved. ? Get a self-help book about quitting smoking and staying off tobacco. LEARN NEW SKILLS AND BEHAVIORS ? Distract yourself from urges to smoke. Talk to someone, go for a walk, or occupy your time with a task. ? Change your normal routine. Take a different route to work. Drink tea instead of coffee. Eat breakfast in a different place. ? Reduce your stress. Take a hot bath, exercise, or read a book. ? Plan something enjoyable to do every day. Reward yourself for not smoking. ? Explore interactive web-based programs that specialize in helping you quit. GET MEDICINE AND USE IT CORRECTLY Medicines can help you stop smoking and decrease the urge to smoke. Combining medicine with the above behavioral methods and support can greatly increase your chances of successfully quitting smoking. ? Nicotine replacement therapy helps deliver nicotine to your body without the negative effects and risks of smoking. Nicotine replacement therapy includes nicotine gum, lozenges, inhalers, nasal sprays, and skin patches. Some may be available [id number] and others require a prescription. ? Antidepressant medicine helps people abstain from smoking, but how this works is unknown. This medicine is available by prescription. ? Nicotinic receptor partial agonist medicine simulates the effect of nicotine in your brain. This medicine is available by prescription. Ask your health care provider for advice about which medicines to use and how to use them based on your health history. Your health care provider will tell you what side effects to look out for if you choose to be on a medicine or therapy. Carefully read the information on the package. Do not use any other product containing nicotine while using a nicotine replacement product. RELAPSE OR DIFFICULT SITUATIONS Most relapses occur within the first 3 months after quitting. Do not be discouraged if you start smoking again. Remember, most people try several times before finally quitting. You may have symptoms of withdrawal because your body is used to nicotine. You may crave cigarettes, be irritable, feel very hungry, cough often, get headaches, or have difficulty concentrating. The withdrawal symptoms are only temporary. They are strongest when you first quit, but they will go away within 10?14 days. To reduce the chances of relapse, try to: ? Avoid drinking alcohol. Drinking lowers your chances of successfully quitting. ? Reduce the amount of caffeine you consume. Once you quit smoking, the amount of caffeine in your body increases and can give you symptoms, such as a rapid heartbeat, sweating, and anxiety. ? Avoid smokers because they can make you want to smoke. ? Do not let weight gain distract you. Many smokers will gain weight when they quit, usually less than 10 pounds. Eat a healthy diet and stay active. You can always lose the weight gained after you quit. ? Find ways to improve your mood other than smoking. FOR MORE INFORMATION www.smokefree.gov Document Released: 05/04/2002 Document Revised: 09/24/2014 Document Reviewed: 08/18/2012 ExitCare? Patient Information ?2014 [employer]. This information is not intended to replace advice given to you by your health care provider. Make sure you discuss any questions you have with your health care provider. Return if you have any problems or concerns. Call your regular provider for a follow up appointment. May use Ibuprofen as directed for pain. Chest Pain (Nonspecific) It is often hard to give a specific diagnosis for the cause of chest pain. There is always a chance that your pain could be related to something serious, such as a heart attack or a blood clot in the lungs. You need to follow up with your health care provider for further evaluation. CAUSES ? Heartburn. ? Pneumonia or bronchitis. ? Anxiety or stress. ? Inflammation around your heart (pericarditis) or lung (pleuritis or pleurisy). ? A blood clot in the lung. ? A collapsed lung (pneumothorax). It can develop suddenly on its own (spontaneous pneumothorax) or from trauma to the chest. ? Shingles infection (herpes zoster virus). The chest wall is composed of bones, muscles, and cartilage. Any of these can be the source of the pain. ? The bones can be bruised by injury. ? The muscles or cartilage can be strained by coughing or overwork. ? The cartilage can be affected by inflammation and become sore (costochondritis). DIAGNOSIS Lab tests or other studies may be needed to find the cause of your pain. Your health care provider may have you take a test called an ambulatory electrocardiogram (ECG). An ECG records your heartbeat patterns over a 24-hour period. You may also have other tests, such as: ? Transthoracic echocardiogram (TTE). During echocardiography, sound waves are used to evaluate how blood flows through your heart. ? Transesophageal echocardiogram (MICHELLE). ? Cardiac monitoring. This allows your health care provider to monitor your heart rate and rhythm in real time. ? Holter monitor. This is a portable device that records your heartbeat and can help diagnose heart arrhythmias. It allows your health care provider to track your heart activity for several days, if needed. ? Stress tests by exercise or by giving medicine that makes the heart beat faster. TREATMENT ? Treatment depends on what may be causing your chest pain. Treatment may include: ? Acid blockers for heartburn. ? Anti-inflammatory medicine. ? Pain medicine for inflammatory conditions. ? Antibiotics if an infection is present. ? You may be advised to change lifestyle habits. This includes stopping smoking and avoiding alcohol, caffeine, and chocolate. ? You may be advised to keep your head raised (elevated) when sleeping. This reduces the chance of acid going backward from your stomach into your esophagus. Most of the time, nonspecific chest pain will improve within 2?3 days with rest and mild pain medicine. HOME CARE INSTRUCTIONS ? If antibiotics were prescribed, take them as directed. Finish them even if you start to feel better. ? For the next few days, avoid physical activities that bring on chest pain. Continue physical activities as directed. ? Do not use any tobacco products, including cigarettes, chewing tobacco, or electronic cigarettes. ? Avoid drinking alcohol. ? Only take medicine as directed by your health care provider. ? Follow your health care provider's suggestions for further testing if your chest pain does not go away. ? Keep any follow-up appointments you made. If you do not go to an appointment, you could develop lasting (chronic) problems with pain. If there is any problem keeping an appointment, call to reschedule. SEEK MEDICAL CARE IF: ? Your chest pain does not go away, even after treatment. ? You have a rash with blisters on your chest. ? You have a fever. SEEK IMMEDIATE MEDICAL CARE IF: ? You have increased chest pain or pain that spreads to your arm, neck, jaw, back, or abdomen. ? You have shortness of breath. ? You have an increasing cough, or you cough up blood. ? You have severe back or abdominal pain. ? You feel nauseous or vomit. ? You have severe weakness. ? You faint. ? You have chills. This is an emergency. Do not wait to see if the pain will go away. Get medical help at once. Call your local emergency services (911 in [place] Do not drive yourself to the hospital. MAKE SURE YOU: ? Understand these instructions. ? Will watch your condition. ? Will get help right away if you are not doing well or get worse. Document Released: 02/17/2006 Document Revised: 05/15/2014 Document Reviewed: 12/13/2008 ExitCare? Patient Information ?2015 [employer], [place]. This information is not intended to replace advice given to you by your health care provider. Make sure you discuss any questions you have with your health care provider. Normal [facility] ED Patient Summaryon 019 ED Patient Summary (Inserted Image. Melissa ble to display) [place] [id number] Patient Discharge Instructions Person Information Name: JONES HALEY Age: 38 Years Arrival Date: 01/11/2019 3:44 PM Discharge Diagnosis: 1:Chest pain Primary Care Physician: Cahrles Mitchell DO Provider Information Primary Provider: Orin Browne DO Advanced Equity Structurer:None The exam and treatment you received in the Emergency Department were for an urgent problem and are not intended as complete care. It is important that you follow up with a doctor, nurse practitioner, or physician?s rehabilitation assistant for ongoing care. If your symptoms become worse or you do not improve as expected and you are unable to reach your usual health care provider, you should return to the Emergency Department. We are available 24 hours a day. JONES HALEY has been given the following list of patient education materials, prescriptions and follow-up instructions: Follow-up Instructions: With: Address: When: Charles Mitchell [address] [place] [address] [facility] (1) Within 2 to 3 days Comments: Return to ED if symptoms worsen In the event that this physician does not participate in your insurance network, please consult with your insurance company to find a nearby participating provider. Patient Education Materials: Smoking Cessation; Chest Pain (Nonspecific) A MESSAGE TO ALL PATIENTS REGARDING OPIOIDS PRESCRIPTION OPIOIDS: WHAT YOU NEED TO KNOW Prescription opioids can be used to help relieve [id number] pain and are often prescribed following a surgery or injury, or for certain health conditions. These medications can be an important part of the treatment but also come with serious risks. It is important to work with your healthcare provider to make sure you are getting the safest, most effective care. WHAT ARE THE RISKS AND SIDE EFFECTS OF OPIOID USE? Prescription opioids carry serious risks of addiction and overdose, especially with prolonged use. An opioid overdose, often marked by slowed breathing, can cause sudden . The use of prescription opioids can have a number of side effects as well, even when taken as directed: ? Tolerance?meaning you might need to take more of the medication for the same pain relief ? Physical dependence?meaning you have symptoms of withdrawal when a medication is stopped ? Increased sensitivity to pain ? Constipation ? Nausea, vomiting, and dry mouth ? Sleepiness and dizziness ? Confusion ? Depression ? Low levels of testosterone that can result in lower sex drive, energy, and strength ? Itching and sweating RISKS ARE GREATER WITH: ? History of drug misuse, substance use disorder, or overdose ? Mental health conditions (such as depression or anxiety) ? Sleep apnea ? Older age (65 years and older) ? Avoid alcohol while taking prescription opioids. Also, unless specifically advised by your health care provider, medications to avoid include: ? Benzodiazepines (such as Xanax or Valium) ? Muscle relaxants (such as Soma or Flexeril) ? Hypnotics (such as Ambien or Lunesta) ? Other prescription opioids KNOW YOUR OPTIONS Talk to your health care provider about ways to manage your pain that don?t involve prescription opioids. Some of these options may actually work better and have fewer risks and side effects. Options may include: ? Pain relievers such as acetaminophen, ibuprofen, and naproxen ? Some medication that are also used for depression or seizures ? Physical therapy and exercise ? Cognitive behavioral therapy, a psychological, goal-directed approach, in which patients learn how to modify physical, behavioral, and emotional triggers of pain and stress. IF YOU ARE PRESCRIBED OPIOIDS FOR PAIN: ? Never take opioids in greater amounts or more often than prescribed. ? Follow up with your primary health care provider. o Work together to create a plan on how to manage your pain. o Talk about ways to help manage your pain that don?t involve prescription opioids. o Talk about any and all concerns and side effects. ? Help prevent misuse and abuse o Never sell or share prescription opioids. o Never use another person?s prescription opioids. ? Store prescription opioids in a secure place and out of reach of others (this may include visitors, children, friends, and family). ? Safely dispose of unused prescription opioids: Find your community drug take-back program or your pharmacy mail-back program, or flush them down the toilet, following guidance from the Food and Drug Administration (www.fda.gov/Drugs/Resource sForYou). ? Visit www.cdc.gov/drugoverdose to learn about the risks of opioids abuse and overdose. ? If you believe you may be struggling with addiction, tell your health care management associate and ask for guidance or call SAMHSA?S National Helpline at 9-065-949-FEVO. v Source: [place] Department of Health and Human Services/Center for Disease Control & Prevention [facility] Medications Given: Medication Dose Route No medications found. Medication Information: Medications to Continue with No Changes Other Medications metformin (metformin 500 mg ER Tab) 250 Milligram By Mouth 2 times a day. Comment: Pharmacy Information: Thank you for choosing [facility] Patient Education Materials: Smoking Cessation Quitting smoking is important to your health and has many advantages. However, it is not always easy to quit since nicotine is a very addictive drug. Oftentimes, people try 3 times or more before being able to quit. This document explains the best ways for you to prepare to quit smoking. Quitting takes hard work and a lot of effort, but you can do it. ADVANTAGES OF QUITTING SMOKING ? You will live longer, feel better, and live better. ? Your body will feel the impact of quitting smoking almost immediately. ? Within 20 minutes, blood pressure decreases. Your pulse returns to its normal level. ? After 8 hours, carbon monoxide levels in the blood return to normal. Your oxygen level increases. ? After 24 hours, the chance of having a heart attack starts to decrease. Your breath, hair, and body stop smelling like smoke. ? After 48 hours, damaged nerve endings begin to recover. Your sense of taste and smell improve. ? After 72 hours, the body is virtually free of nicotine. Your bronchial tubes relax and breathing becomes easier. ? After 2 to 12 weeks, lungs can hold more air. Exercise becomes easier and circulation improves. ? The risk of having a heart attack, stroke, cancer, or lung disease is greatly reduced. ? After 1 year, the risk of coronary heart disease is cut in half. ? After 5 years, the risk of stroke falls to the same as a nonsmoker. ? After 10 years, the risk of lung cancer is cut in half and the risk of other cancers decreases significantly. ? After 15 years, the risk of coronary heart disease drops, usually to the level of a nonsmoker. ? If you are , quitting smoking will improve your chances of having a healthy baby. ? The people you live with, especially any children, will be healthier. ? You will have extra money to spend on things other than cigarettes. QUESTIONS TO THINK ABOUT BEFORE ATTEMPTING TO QUIT You may want to talk about your answers with your health care provider. ? Why do you want to quit? ? If you tried to quit in the past, what helped and what did not? ? What will be the most difficult situations for you after you quit? How will you plan to handle them? ? Who can help you through the tough times? Your family? Friends? A health care provider? ? What pleasures do you get from smoking? What ways can you still get pleasure if you quit? Here are some questions to ask your health care provider: ? How can you help me to be successful at quitting? ? What medicine do you think would be best for me and how should I take it? ? What should I do if I need more help? ? What is smoking withdrawal like? How can I get information on withdrawal? GET READY ? Set a quit date. ? Change your environment by getting rid of all cigarettes, ashtrays, matches, and lighters in your home, car, or work. Do not let people smoke in your home. ? Review your past attempts to quit. Think about what worked and what did not. GET SUPPORT AND ENCOURAGEMENT You have a better chance of being successful if you have help. You can get support in many ways. ? Tell your family, friends, and coworkers that you are going to quit and need their support. Ask them not to smoke around you. ? Get individual, group, or telephone counseling and support. Programs are available at local hospitals and health centers. Call your local health department for information about programs in your area. ? Spiritual beliefs and practices may help some smokers quit. ? Download a quit meter on your computer to keep track of quit statistics, such as how long you have gone without smoking, cigarettes not smoked, and money saved. ? Get a self-help book about quitting smoking and staying off tobacco. LEARN NEW SKILLS AND BEHAVIORS ? Distract yourself from urges to smoke. Talk to someone, go for a walk, or occupy your time with a task. ? Change your normal routine. Take a different route to work. Drink tea instead of coffee. Eat breakfast in a different place. ? Reduce your stress. Take a hot bath, exercise, or read a book. ? Plan something enjoyable to do every day. Reward yourself for not smoking. ? Explore interactive web-based programs that specialize in helping you quit. GET MEDICINE AND USE IT CORRECTLY Medicines can help you stop smoking and decrease the urge to smoke. Combining medicine with the above behavioral methods and support can greatly increase your chances of successfully quitting smoking. ? Nicotine replacement therapy helps deliver nicotine to your body without the negative effects and risks of smoking. Nicotine replacement therapy includes nicotine gum, lozenges, inhalers, nasal sprays, and skin patches. Some may be available [id number]-wkl-bosjkce and others require a prescription. ? Antidepressant medicine helps people abstain from smoking, but how this works is unknown. This medicine is available by prescription. ? Nicotinic receptor partial agonist medicine simulates the effect of nicotine in your brain. This medicine is available by prescription. Ask your health care provider for advice about which medicines to use and how to use them based on your health history. Your health care provider will tell you what side effects to look out for if you choose to be on a medicine or therapy. Carefully read the information on the package. Do not use any other product containing nicotine while using a nicotine replacement product. RELAPSE OR DIFFICULT SITUATIONS Most relapses occur within the first 3 months after quitting. Do not be discouraged if you start smoking again. Remember, most people try several times before finally quitting. You may have symptoms of withdrawal because your body is used to nicotine. You may crave cigarettes, be irritable, feel very hungry, cough often, get headaches, or have difficulty concentrating. The withdrawal symptoms are only temporary. They are strongest when you first quit, but they will go away within 10?14 days. To reduce the chances of relapse, try to: ? Avoid drinking alcohol. Drinking lowers your chances of successfully quitting. ? Reduce the amount of caffeine you consume. Once you quit smoking, the amount of caffeine in your body increases and can give you symptoms, such as a rapid heartbeat, sweating, and anxiety. ? Avoid smokers because they can make you want to smoke. ? Do not let weight gain distract you. Many smokers will gain weight when they quit, usually less than 10 pounds. Eat a healthy diet and stay active. You can always lose the weight gained after you quit. ? Find ways to improve your mood other than smoking. FOR MORE INFORMATION www.smokefree.gov Document Released: 05/04/2002 Document Revised: 09/24/2014 Document Reviewed: 08/18/2012 ExitCare? Patient Information ?2015 [employer]. This information is not intended to replace advice given to you by your health care provider. Make sure you discuss any questions you have with your health care provider. Return if you have any problems or concerns. Call your regular provider for a follow up appointment. May use Ibuprofen as directed for pain. Chest Pain (Nonspecific) It is often hard to give a specific diagnosis for the cause of chest pain. There is always a chance that your pain could be related to something serious, such as a heart attack or a blood clot in the lungs. You need to follow up with your health care provider for further evaluation. CAUSES ? Heartburn. ? Pneumonia or bronchitis. ? Anxiety or stress. ? Inflammation around your heart (pericarditis) or lung (pleuritis or pleurisy). ? A blood clot in the lung. ? A collapsed lung (pneumothorax). It can develop suddenly on its own (spontaneous pneumothorax) or from trauma to the chest. ? Shingles infection (herpes zoster virus). The chest wall is composed of bones, muscles, and cartilage. Any of these can be the source of the pain. ? The bones can be bruised by injury. ? The muscles or cartilage can be strained by coughing or overwork. ? The cartilage can be affected by inflammation and become sore (costochondritis). DIAGNOSIS Lab tests or other studies may be needed to find the cause of your pain. Your health care provider may have you take a test called an ambulatory electrocardiogram (ECG). An ECG records your heartbeat patterns over a 24-hour period. You may also have other tests, such as: ? Transthoracic echocardiogram (TTE). During echocardiography, sound waves are used to evaluate how blood flows through your heart. ? Transesophageal echocardiogram (MICHELLE). ? Cardiac monitoring. This allows your health care provider to monitor your heart rate and rhythm in real time. ? Holter monitor. This is a portable device that records your heartbeat and can help diagnose heart arrhythmias. It allows your health care provider to track your heart activity for several days, if needed. ? Stress tests by exercise or by giving medicine that makes the heart beat faster. TREATMENT ? Treatment depends on what may be causing your chest pain. Treatment may include: ? Acid blockers for heartburn. ? Anti-inflammatory medicine. ? Pain medicine for inflammatory conditions. ? Antibiotics if an infection is present. ? You may be advised to change lifestyle habits. This includes stopping smoking and avoiding alcohol, caffeine, and chocolate. ? You may be advised to keep your head raised (elevated) when sleeping. This reduces the chance of acid going backward from your stomach into your esophagus. Most of the time, nonspecific chest pain will improve within 2?3 days with rest and mild pain medicine. HOME CARE INSTRUCTIONS ? If antibiotics were prescribed, take them as directed. Finish them even if you start to feel better. ? For the next few days, avoid physical activities that bring on chest pain. Continue physical activities as directed. ? Do not use any tobacco products, including cigarettes, chewing tobacco, or electronic cigarettes. ? Avoid drinking alcohol. ? Only take medicine as directed by your health care provider. ? Follow your health care provider's suggestions for further testing if your chest pain does not go away. ? Keep any follow-up appointments you made. If you do not go to an appointment, you could develop lasting (chronic) problems with pain. If there is any problem keeping an appointment, call to reschedule. SEEK MEDICAL CARE IF: ? Your chest pain does not go away, even after treatment. ? You have a rash with blisters on your chest. ? You have a fever. SEEK IMMEDIATE MEDICAL CARE IF: ? You have increased chest pain or pain that spreads to your arm, neck, jaw, back, or abdomen. ? You have shortness of breath. ? You have an increasing cough, or you cough up blood. ? You have severe back or abdominal pain. ? You feel nauseous or vomit. ? You have severe weakness. ? You faint. ? You have chills. This is an emergency. Do not wait to see if the pain will go away. Get medical help at once. Call your local emergency services (911 in [place] Do not drive yourself to the hospital. MAKE SURE YOU: ? Understand these instructions. ? Will watch your condition. ? Will get help right away if you are not doing well or get worse. Document Released: 02/17/2006 Document Revised: 05/15/2014 Document Reviewed: 12/13/2008 ExitCare? Patient Information ?2014 [employer]. This information is not intended to replace advice given to you by your health care provider. Make sure you discuss any questions you have with your health care provider. TERA Dorantes NICOLE B , have received the following patient education materials/instructions and have verbalized understanding: Patient Education Materials: Smoking Cessation; Chest Pain (Nonspecific) Follow-up Instructions: With: Address: When: [place] [phone] Business (1) Within 2 to 3 days Comments: Return to ED if symptoms worsen Prescriptions: Patient Signature Date Clinician/Nurse Signature Date 01/11/19 18:42:[address] [facility] Progress Note-Nurseon 2018 Progress Note-Nurse Pt explained dischar ge instructions and voiced understanding. Pt sts she will follow up with her PCP and denies any furthe questions at this time. Normal [facility] Troponin 0 Hr.on 01-11-2019 Troponin I.cardiac [Mass/Vol] ng/mL Normal <=0.[address] [facility] Comment on above: Result Comment: New Troponin Assay 10/05/13 [place] Cutoff value > or = 0.03 ng/mL in conjunction with clinical conditions of myocardial infarction. (www.escardio.org/guidelines) Performed By: #### 1 1988951, 1593717, 4603314, 0372923, 70064412, 7621790, 5901331, 2600979, 2137921, 37102484, 4727759 #### [facility] [address] [place] [address] eGFRon 01-11-2019 GFR/1.73 sq M predicted among blacks MDRD (S/P/Bld) [Vol rate/Area] mL/min/{1.73_m2} Normal >=[address] [facility] Comment on above: Order Comment: Order added by Discern Expert. Result Comment: eGFR is race adjusted. AA=. Performed By: #### 1 7551619, 1171396, 8967673, 3549260, 93071329, 9737470, 2720748, 8382806, 2718275, 22504262, 0413914 #### [facility] [address] [place] [address] GFR/1.73 sq M predicted among non-blacks MDRD (S/P/Bld) [Vol rate/Area] mL/min/{1.73_m2} Normal >=[address] [facility] Comment on above: Order Comment: Order added by Discern Expert. Result Comment: Area Captain anthony kidney disease could be indicated at eGFR's of less than 60 mL/min/1.73m2. Kidney failure is indicated at less than 15 mL/min/1.73m2. Performed By: #### 1 8309784, 0111132, 5221616, 4558090, 65868155, 8571386, 6550680, 5138385, 2230671, 94431587, 6597904 #### [facility] [address] [place] [address] SPINE, LUMBOSACRAL CMPLT(TOOTIE DING)on 12-05-2018 SPINE, LUMBOSACRAL CMPLT(BENDING) Patient Name: JONES HALEY STUDY: SPINE, LUMBOSACRAL; CMPLT(BENDING); 12/05/2018 1:47 pm INDICATION: LUMBAR XR. COMPARISON: None. ACCESSION NUMBER(S): [id number] ORDERING CLINICIAN: JUAN LUIS EARLY FINDINGS: No lumbar spine fracture. Scattered small endplate osteophytes. Vertebral body and disc space heights are are maintained. 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 No spondylolisthesis. No instability on flexion or extension. IMPRESSION: Degenerative changes of the lumbar spine without instability. Electronically signed by: EARNESTINE MANUEL MD [facility] XR chest 2V*on 09-17-2018 XR chest 2V* [facility] Main [place] [id number] XRay Report Signed Patient: Jones Haley MR#: [id number] : 1980 Acct:[id number] Age/Sex: 37 / F ADM Date: 09/17/18 Loc: XDUCLY Room: Type: [facility] Attending Dr: Bettina COREAS Ordering Provider: Bettina Jiménez Date of Service: 09/17/18 XR/XR chest 2V*: Rib pain Copies to: Bettina Jiménez PA AND LATERAL CHEST: CLINICAL HISTORY: Nonproductive cough and anterior lower rib pain COMPARISON: 01/04/2015 There is mild coarsening of interstitial markings. There is no focal parenchymal consolidation, effusion or pneumothorax. The cardiac, hilar and mediastinal silhouettes are within normal limits. There is no vascular congestion. The visualized bony thorax is intact. XR/XR chest 2V* IMPRESSION: MINIMAL NONSPECIFIC INTERSTITIAL CHANGE. NO OTHER ACUTE CARDIOPULMONARY ABNORMALITY. Impression dictated by: Simin Nelson M.D.09/17/2018 2:04 PM Dictation Location: [facility] Transcribed By: KATHRIN 09/17/18 1404 Dictated By: Simin Nelson MD 09/17/18 1403 Signed By: 09/17/18 1404 [facility] Coding Summary.on 09-15-2018 Coding Summary. CODING DATE: 019 FINAL [facility] STATUS: Home (Routine DC) PAYOR: Medicaid EAPG DESCRIPTION 0457 VENIPUNCTURE 0413 CARDIOGRAM 0406 LEVEL I CLOTTING TESTS 0408 LEVEL I HEMATOLOGY TESTS 0471 PLAIN FILM 0403 ORGAN OR DISEASE ORIENTED PANELS 0400 LEVEL I CHEMISTRY TESTS 0402 BASIC CHEMISTRY TESTS 0401 LEVEL II CHEMISTRY TESTS 0410 URINALYSIS ADMIT DX: REASON FOR VISIT DX: R20.0 Anesthesia of skin FINAL DX: PRINCIPAL: G25.81 Restless legs syndrome SECONDARY: E88.81 Metabolic syndrome F17.210 Nicotine dependence, cigarettes, uncomplicated Z79.899 Other senior living (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 However, the narrative phrase printed from the coding software may appear abbreviated, or result in slightly different terminology. Coded By: Luz Judd Date Saved: 09/15/2018 07:15 am Normal [facility] Auto Diffon 09-14-2018 Basophils/100 WBC (Bld) 0.6 % Normal 0.0-2.[address] [facility] Comment on above: Order Comment: Order Added by Discern Expert. Performed By: #### 1 4686297, 4229636, 8692192, 1774111, 28935857, 9913094, 5031793, 4540414, 4616888, 66675224, 1412412 #### [facility] [address] [place] [address] Basophils/Leukocytes Auto (Bld) [Pure # fraction] 0.1 E9/L Normal 0.0-0.[address] [facility] Comment on above: Order Comment: Order Added by Discern Expert. Performed By: #### 1 2227625, 0726494, 7394425, 9707352, 80925827, 6843285, 0703640, 8784795, 5077893, 10494845, 5562181 #### [facility] [address] [place] [address] Eosinophils/100 WBC (Bld) 2.2 % Normal 0.0-8.[address] [facility] Comment on above: Order Comment: Order Added by Discern Expert. Performed By: #### 1 4645717, 1270315, 7365626, 4315862, 00992377, 5277689, 9985690, 4021914, 6148969, 04477143, 5750376 #### [facility] [address] [place] [address] Eosinophils/Leukocyt es Auto (Bld) [Pure # fraction] 0.2 E9/L Normal 0.0-0.[address] [facility] Comment on above: Order Comment: Order Added by Discern Expert. Performed By: #### 1 6353789, 8052006, 4608997, 0096061, 29697825, 5870375, 8462808, 4793986, 2179197, 37511531, 8677508 #### [facility] [address] [place] [address] Lymphocytes/100 WBC (Bld) 30.6 % Normal 14.0-50.[address] [facility] Comment on above: Order Comment: Order Added by Discern Expert. Performed By: #### 1 6047318, 0383093, 2676713, 4687227, 56412577, 6369786, 1420871, 4433642, 2150383, 05237515, 1048890 #### [facility] [address] [place] [address] Lymphocytes/Leukocyt es Auto (Bld) [Pure # fraction] 3.0 E9/L Normal 1.0-4.[address] [facility] Comment on above: Order Comment: Order Added by Discern Expert. Performed By: #### 1 6372768, 0256080, 4838620, 4544158, 72885129, 8630724, 3171957, 5195625, 2725892, 63648464, 9056723 #### [facility] [address] [place] [address] Monocytes/100 WBC (Bld) 7.2 % Normal 4.0-14.[address] [facility] Comment on above: Order Comment: Order Added by Discern Expert. Performed By: #### 1 2899809, 9726366, 5469085, 0191968, 38200322, 9385770, 6378375, 0348256, 6265262, 39399946, 0958960 #### [facility] [address] [place] [address] Monocytes/Leukocytes Auto (Bld) [Pure # fraction] 0.7 E9/L Normal 0.2-1.[address] [facility] Comment on above: Order Comment: Order Added by Discern Expert. Performed By: #### 1 7914264, 3136439, 0656424, 4424342, 76096268, 5561062, 7198325, 1627351, 8012121, 39781471, 4978083 #### [facility] [address] [place] [address] Neutrophils/100 WBC (Bld) 59.4 % Normal 36.0-75.[address] [facility] Comment on above: Order Comment: Order Added by Discern Expert. Performed By: #### 1 2747209, 4146554, 1081853, 7834996, 15667955, 9906104, 5422585, 1775504, 7404541, 34687682, 7093065 #### [facility] [address] [place] [address] Neutrophils/Leukocyt es Auto (Bld) [Pure # fraction] 5.9 E9/L Normal 2.0-7.[address] [facility] Comment on above: Order Comment: Order Added by Discern Expert. Performed By: #### 1 1357177, 5933236, 4645944, 0326906, 73976045, 3859853, 6882254, 9563949, 4438103, 14454129, 8476717 #### [facility] [address] [place] [address] BMPon 09-14-2018 Creatinine [Mass/Vol] 0.6 mg/dL Normal 0.5-1.[address] [facility] Comment on above: Performed By: #### 1 1593483, 0630645, 6144163, 1463270, 71035263, 0663363, 8747845, 2105386, 8375816, 88387823, 6387711 #### [facility] [address] [place] [address] Urea nitrogen [Mass/Vol] 15 mg/dL Normal 5-[address] [facility] Comment on above: Performed By: #### 1 4340012, 3568621, 3376625, 8355690, 98549051, 6505964, 8658436, 6019616, 0767976, 17361467, 8994204 #### [facility] [address] [place] [address] Urea nitrogen/Creatinine [Mass ratio] 25 No Units High 10-[address] [facility] Comment on above: Performed By: #### 1 9284631, 5454234, 3747295, 3016775, 06334084, 1923881, 5099323, 6733962, 5408283, 09422307, 4837076 #### [facility] [address] [place] [address] Anion gap [Moles/Vol] 13 mmol/L Normal 6-[address] [facility] Comment on above: Performed By: #### 1 6494138, 3517140, 2738812, 8152041, 15494151, 2050590, 8181549, 0591135, 7258718, 29426907, 6918522 #### [facility] [address] [place] [address] Calcium [Mass/Vol] 9.5 mg/dL Normal 8.9-11.[address] [facility] Comment on above: Performed By: #### 1 8522282, 3115429, 3150798, 7666656, 86875505, 8447958, 3977844, 1405441, 5179441, 17142907, 0733423 #### [facility] [address] [place] [address] Chloride [Moles/Vol] 103 mmol/L Normal 101-111 [facility] Comment on above: Performed By: #### 1 9399918, 5504720, 9498536, 9956233, 41620750, 5873366, 6434973, 8930370, 7954047, 86402836, 7345859 #### [facility] [address] [place] [address] CO2 [Moles/Vol] 24 mmol/L Normal 21-[address] [facility] Comment on above: Performed By: #### 1 7137096, 8262281, 0822631, 1633461, 66126510, 5828222, 8853536, 5510351, 0488213, 98415235, 0410909 #### [facility] [address] [place] [address] Glucose [Mass/Vol] 102 mg/dL Normal 55-[address] [facility] Comment on above: Result Comment: If t his glucose result represents a fasting glucose, interpretation should refer to the following reference range: 55-99 mg/dL Performed By: #### 1 3054242, 8461263, 6890192, 0424339, 73049779, 3883351, 9387173, 4129831, 3552717, 53107840, 3598121 #### [facility] [address] [place] [address] Potassium [Moles/Vol] 3.6 mmol/L Normal 3.5-5.[address] [facility] Comment on above: Performed By: #### 1 6535120, 1569413, 7524530, 6406077, 83841010, 9145014, 3468475, 9401727, 5016397, 71074485, 2605453 #### [facility] [address] [place] [address] Sodium [Moles/Vol] 136 mmol/L Normal 135-[address] [facility] Comment on above: Performed By: #### 1 6554236, 4465820, 0298923, 1242517, 23512668, 4655437, 0850820, 7491780, 3007638, 65918065, 5304163 #### [facility] [address] [place] [address] CBC w/ Auto Diffon 9 Erythrocyte distribution width (RBC) [Ratio] 14.2 % Normal 10.9-14.[address] [facility] Comment on above: Performed By: #### 1 3473166, 2847789, 8964061, 5110699, 86979677, 0032841, 0061307, 4188273, 7309994, 56974410, 8317858 #### [facility] [address] [place] [address] Hematocrit (Bld) [Volume fraction] 39.4 % Normal 34.0-46.[address] [facility] Comment on above: Performed By: #### 1 7054073, 8395875, 4979190, 7081626, 05782568, 1322019, 0393187, 7153656, 2113196, 93152525, 5145356 #### [facility] [address] [place] [address] Hemoglobin (Bld) [Mass/Vol] 13.3 g/dL Normal 12.0-16.[address] [facility] Comment on above: Performed By: #### 1 7402357, 1529691, 6957431, 4754185, 77401688, 6661714, 7878679, 4185146, 9988474, 26474334, 6423295 #### [facility] [address] [place] [address] MCH (RBC) [Entitic mass] 29.2 pg Normal 27.0-34.[address] [facility] Comment on above: Performed By: #### 1 7039323, 7732451, 4685874, 9880406, 96155660, 8791807, 0107769, 7211025, 6662407, 46696266, 2711902 #### [facility] [address] [place] [address] MCHC (RBC) [Mass/Vol] 33.8 g/dL Normal 33.3-35.[address] [facility] Comment on above: Performed By: #### 1 1601411, 6036146, 7986465, 2475341, 63128815, 3706223, 5594520, 3675959, 5822387, 65050072, 6066544 #### [facility] [address] [place] [address] MCV (RBC) [Entitic vol] 86.6 fL Normal 80.0-100.[address] [facility] Comment on above: Performed By: #### 1 6131619, 7190394, 3634002, 2347479, 18223691, 9848978, 6323637, 9264370, 4063976, 07011837, 5357006 #### [facility] [address] [place] [address] Platelet mean volume (Bld) [Entitic vol] 8.8 fL Normal 6.4-10.[address] [facility] Comment on above: Performed By: #### 1 0810518, 0419243, 7331567, 5752974, 32550347, 4944738, 0738572, 3399350, 8834664, 09211877, 8098851 #### [facility] [address] [place] [address] Platelets (Bld) [#/Vol] 307.0 E9/L Normal 150.0-500.[address] [facility] Comment on above: Performed By: #### 1 4822254, 9122034, 3516062, 9188080, 25566149, 4639095, 5765641, 1664904, 3513115, 88703865, 6711983 #### [facility] [address] [place] [address] RBC (Bld) [#/Vol] 4.6 E12/L Normal 4.3-5.[address] [facility] Comment on above: Performed By: #### 1 1816654, 0789946, 6810970, 5323814, 47345630, 7942879, 1564769, 0237320, 6321564, 36044529, 4784634 #### [facility] [address] [place] [address] WBC corrected for nucl RBC Auto (Bld) [#/Vol] 9.9 E9/L Normal 4.0-11.[address] [facility] Comment on above: Performed By: #### 1 2286910, 0061822, 7018227, 5890421, 91381793, 5257161, 5680853, 7794082, 1109080, 02327637, 7806236 #### [facility] [address] [place] [address] CKon 09-14-2018 CK [Catalytic activity/Vol] 53 Int._Unit/L Normal 14-[address] [facility] Comment on above: Performed By: #### 1 1776103, 1284883, 3694666, 8204404, 56029163, 2386058, 0608960, 1179693, 5287224, 54833696, 3932209 #### [facility] [facility] [address] [place] [address] ED Clinical Summaryon 2018 ED Clinical Summary (Inserted Image. Melissa ble to display) [address] [address] ED Clinical Summary Person Information Name: JONES HALEY/NewTommy Age: 37 Years : 1980 12:00 AM Sex: Female Language: Bolivian PCP: Charles Mitchell DO Marital Status: Single Phone: [phone] Visit Id: Visit Reason: Anxiety; Paraesthesia; NUMBNESS BILATERAL LEGS Speciality: Acuity: 3 Enc Type: Emergency Med Service: Emergency Arrival: 09/13/2018 10:16 PM Discharge: 09/14/2018 12:17 AM LOS: 000 02:01 Checkin: 09/13/2018 10:16 PM Checkout: 09/14/2018 12:17 AM Dispo Type: Home (Routine DC) EVENTS: Event Name Event Status Request Date/Time Start Date/Time Complete Date/Time Arrive Complete 09/13/2018 10:16 PM 09/13/2018 10:16 PM 09/13/2018 10:16 PM Document Home Meds Complete 09/13/2018 10:16 PM 09/13/2018 10:40 PM 09/13/2018 10:40 PM Triage Complete 09/13/2018 10:16 PM 09/13/2018 10:29 PM 09/13/2018 10:29 PM Isolation Screening Request 09/13/2018 10:29 PM Bed Assign Complete 09/13/2018 10:30 PM 09/13/2018 10:30 PM 09/13/2018 10:[address] Exam Complete 09/13/2018 10:30 PM 09/13/2018 10:45 PM 09/13/2018 10:45 PM RN Exam Complete 09/13/2018 10:30 PM 09/13/2018 10:40 PM 09/13/2018 10:40 PM Registration Complete 09/13/2018 10:45 PM 09/13/2018 11:00 PM 09/13/2018 11:00 PM EKG Complete 09/13/2018 10:53 PM 09/13/2018 11:06 PM Pending Labs Complete 09/13/2018 10:53 PM 09/13/2018 11:45 PM Lab Complete 09/13/2018 10:53 PM 09/13/2018 11:45 PM Patient Care Request 09/13/2018 10:53 PM RT Request 09/13/2018 10:53 PM X-Ray Complete 09/13/2018 10:53 PM 09/13/2018 11:25 PM 09/13/2018 11:44 PM Pending Labs Collected 09/13/2018 10:57 PM Lab Collected 09/13/2018 10:57 PM Urine Collect Collected 09/13/2018 10:57 PM Meds Admin Request 09/13/2018 10:57 PM Reg Complete Request 09/13/2018 11:00 PM Reg Bed Request Complete 09/13/2018 11:00 PM 09/13/2018 11:00 PM 09/13/2018 11:00 PM Pending Labs Complete 09/13/2018 11:06 PM 09/13/2018 11:06 PM 09/14/2018 12:08 AM Lab Complete 09/13/2018 11:06 PM 09/13/2018 11:06 PM 09/14/2018 12:08 AM Pending Labs Complete 09/13/2018 11:21 PM 09/13/2018 11:21 PM 09/13/2018 11:45 PM Lab Complete 09/13/2018 11:21 PM 09/13/2018 11:21 PM 09/13/2018 11:45 PM Pending Labs Complete 09/13/2018 11:39 PM 09/13/2018 11:39 PM 09/13/2018 11:39 PM Lab Complete 09/13/2018 11:39 PM 09/13/2018 11:39 PM 09/13/2018 11:39 PM Wet Read Request 09/13/2018 11:44 PM Discharge Complete 09/14/2018 12:02 AM 09/14/2018 12:17 AM 09/14/2018 12:17 AM Transfer Complete 09/14/2018 12:17 AM 09/14/2018 12:17 AM 09/14/2018 12:17 AM ADDRESS: [address] [place] [phone] PHYS DOC NOTES: MEDICAL INFORMATION: Prescriptions Given: Prescription Display gabapentin (gabapentin 100 mg Cap) 100 mg = 1 cap(s), Oral, Daily, X 7 day(s), # 7 cap(s), Refills(s) 0, Pharmacy: [facility] gabapentin (gabapentin 100 mg Cap) 100 mg = 1 cap(s), Oral, Daily, X 7 day(s), # 7 cap(s), Refills(s) 0, Pharmacy: [facility][id number] magnesium oxide (magnesium oxide 400 mg Tab) 400 mg = 1 tab(s), Oral, Daily, X 7 day(s), # 7 tab(s), Refills(s) 0, Pharmacy: [facility] magnesium oxide (magnesium oxide 400 mg Tab) 400 mg = 1 tab(s), Oral, Daily, X 7 day(s), # 7 tab(s), Refills(s) 0, Pharmacy: [facility] #[id number] Home Meds Display metformin (metformin 500 mg ER Tab) 250 mg, Oral, BID, Refills(s) 0 PATIENT EDUCATION INFORMATION: Instructions: Paresthesia, [id number]; Restless Legs Syndrome Follow up: With: Address: When: Sayda Kelley [address] [place] [address] Business (1) Within 1 to 2 days Comments: neurologist you may also follow up with him With: Address: When: [address] [address] Business (1) Within 1 to 2 days Comments: Return to ED if symptoms worsen DIAGNOSIS: 1:Restless leg syndrome Normal [facility] ED Note-Nursingon 09-14-2018 ED Note-Nursing Pt up to RR, gait steady. Normal [facility] ED Note-Nursing Aware of need for ur ine specimen, denies urge at present, states will notify when able to produce sample, will monitor. Normal [facility] ED Note-Physicianon 09-15-19 19 ED Note-Physician Basic Information Time Seen: Génesis Lozoya DO 09/13/2018 22:45 Chief Complaint C/o bilateral lower leg numbness up to knees that progressed today. Pt reports 1 week ago she had some numbness, but today progress. Pt reports weakness in lower legs as well, Pt reports very anxious over situation as well History of Present Illness 37F PRESENTS TO THE ED WITH ANXIETY AND MULTIPLE CONCERNS SHE STATES SHE HAS HAD CHRONIC PAIN IN BOTH HER FEET FOR OVER A YEAR SHE WAS DIAGNOSED WITH PLANTAR FASCIITIS SHE STATES SHE REALLY DOUBTS SHE HAS THIS SHE NOT VERY ACTIVE. SHE STATES SHE WAS READING ONLINE AND RESEARCHING HER SYMPTOMS. SHE IS CONCERNED SHE HAS CANCER FROM WHAT SHE HAS BEEN READING ONLINE SHE STATES SHE HAS HAD NUMBNESS AND TINGLING IN HER FEET BUT TODAY IT HAS WORSENED SHE NOW REPORTS TINGLING SENSATION EXTENDING PAST HER KNEE ON THE RIGHT AND UP TO HER CALF ON THE RIGHT NO FALLS OR INJURY SHE IS ABLE TO AMBULATE WITHOUT DIFFICULTY BUT COMPLAINS OF WEAKNESS IN HER LEGS NO FEVERS OR CHILLS. NO WEIGHT LOSS. NO NIGHT SWEATS. SHE HAS NOT HAD ANY RECENT ILLNESS IN THE PAST 2 MONTHS NO NAUSEA, VOMITING, DIARRHEA OR ABDOMINAL PAIN NO URINARY SYMPTOMS NO BACK PAIN. NO RASH SHE HAS NOT TAKEN ANYTHING FOR HER SYMPTOMS. SHE IS VERY ANXIOUS TODAY REGARDING HAVING POSSIBLE CANCER Review of Systems All organ systems are reviewed. Pertinent positive and negative findings as mentioned in HPI Physical Exam Vitals & Measurements T: 36.7 ?C (Oral) HR: 82(Peripheral) RR: 18 BP: 110/51 SpO2: 97% WT: 106.1 kg Nursing notes reviewed. Vitals reviewed. No hypoxia. Afebrile. General: Alert, no acute distress, patient resting comfortably, patient does not appear toxic or ill. Skin: warm, intact, no pallor noted Head: Normocephalic, atraumatic Eye: Normal conjunctiva Cardiac: Normal peripheral perfusion. Respiratory: No acute distress. Respirations nonlabored. Musculoskeletal: No deformity, full ROM. No edema. Neurological: alert and oriented, normal sensory and motor observed. reflex 2/4 in the lower extremities bilaterally. sensation and motor intact. CN II -XII are grossly intact. Psychiatric: Cooperative Medical Decision Making WILL CHECK LABS AND ELECTROLYTES WILL CHECK CK AND MYOGLOBIN EKG SHOWS NO ACUTE ISCHEMIC INJURY PATTERN CXR SHOWS NO ACUTE CARDIOPULMONARY PROCESS LABS ARE REVIEWED AND WITHIN NORMAL LIMITS DISCUSSED WITH PATIENT, SHE COULD HAVE RESTLESS LEGS AND/OR NEUROPATHY FROM HER INSULIN RESISTANCE WE CAN TRY GABAPENTIN AND MAGNESIUM RECOMMENDED FOLLOW UP WITH PCP NEUROLOGY FOLLOW UP ALSO RECOMMENDED DISCUSSED WITH PATIENT TO NOT BELIEVE EVERYTHING SHE READS ONLINE THIS MAY BE FALSE OR EXAGGERATED INFORMATION. SHE VOICES UNDERSTANDING. SHE STATES SHE ALSO LOOKED UP THAT SHE COULD HAVE B12 DEFICIENCY AND WAS WONDERING IF SHE SHOULD START B12 SUPPLEMENTS B12 IS WATER SOLUBLE, I RECOMMENDED SHE CAN START THEM TO SEE IF IT HELPS, HER LABS HOWEVER SHOW NO ANEMIA OR FINDINGS CONSISTENT WITH B12 OR FOLATE DEFICIENCY. SHE VOICES UNDERSTANDING DISCHARGED HOME IN STABLE CONDITION Assessment/Plan 1. Restless leg syndrome Orders: gabapentin, 100 mg = 1 cap(s), Oral, Daily, X 7 day(s), # 7 cap(s), Refills(s) 0, Pharmacy: [facility][id number] magnesium oxide, 400 mg = 1 tab(s), Oral, Daily, X 7 day(s), # 7 tab(s), Refills(s) 0, Pharmacy: [facility] #[id number] Sodium Chloride 0.9% intravenous solution 1,000 mL, 1,000 mL, IV Piggyback, 1,000 mL/hr, for 2 hour(s), Stop date 09/14/18 0:55:00 EDT, STAT, Start date 09/13/18 22:56:00 EDT, 1 hour(s), Total volume (mL): 1,000, Bolus Dose: 1,000 mL Automated Diff Basic Metabolic Panel CBC w/ Auto Diff Creatine Kinase ECG 12 Lead Adult ED Cardiac Monitoring eGFR Hepatic Function Panel Magnesium Level Myoglobin Oxygen Saturation Oxygen Therapy Phosphorus Level PT & PTT Saline Lock Insert Troponin 0 Hr. UA With Cult Reflex XR Chest Single View Medications Administered Given NS 1000 ml Bolus 1,000 mL, 1000 mL, IV Piggyback Disposition Plan Patient Discharge Condition STABLE Discharge Disposition HOME Discharge Prescription List Prescriptions gabapentin 100 mg Cap, 100 mg= 1 cap(s), Oral, Daily magnesium oxide 400 mg Tab, 400 mg= 1 tab(s), Oral, Daily Follow-up With When Contact Information Sayda Kelley Within 1 to [address] [phone]- Business (1) Additional Instructions: neurologist you may also follow up with him Charles Mitchell Within 1 to [address] [place] [phone]- Business (1) Additional Instructions: Return to ED if symptoms worsen Patient Education Paresthesia, [id number] Restless Legs Syndrome Problem List/Past Medical History Ongoing Anxiety Arthritis Obesity Smoker Historical Insulin resistance Procedure/Surgical History Cystectomy, D&C - Dilatation and curettage, Diagnostic laparoscopy. Medications Inpatient No active inpatient medications Home gabapentin 100 mg Cap, 100 mg= 1 cap(s), Oral, Daily magnesium oxide 400 mg Tab, 400 mg= 1 tab(s), Oral, Daily metformin 500 mg ER Tab, 250 mg, Oral, BID Allergies Bactrim (sick) Latex (Rash) codeine (Trouble breathing 17-JUN-2015 17:55:17<$>) Social History Alcohol Current, 09/13/2018 Substance Abuse Current, 09/13/2018 Tobacco 10 or more cigarettes (1/2 pack or more)/day in last 30 days Tobacco Use:., 09/13/2018 Lab Results WBC: 9.9 E9/L (09/13/18 23:03:00 EDT) RBC: 4.6 E12/L (09/13/18 23:03:00 EDT) Hgb: 13.3 gm/dL (09/13/18 23:03:00 EDT) Hct: 39.4 % (09/13/18 23:03:00 EDT) MCV: 86.6 fL (09/13/18 23:03:00 EDT) MCH: 29.2 pg (09/13/18 23:03:00 EDT) MCHC: 33.8 gm/dL (09/13/18 23:03:00 EDT) RDW: 14.2 % (09/13/18 23:03:00 EDT) Platelet: 307 E9/L (09/13/18 23:03:00 EDT) MPV: 8.8 fL (09/13/18 23:03:00 EDT) Neutro Auto: 59.4 % (09/13/18 23:03:00 EDT) Lymph Auto: 30.6 % (09/13/18 23:03:00 EDT) [place] Auto: 7.2 % (09/13/18 23:03:00 EDT) Eos Auto: 2.2 % (09/13/18 23:03:00 EDT) Basophil Auto: 0.6 % (09/13/18 23:03:00 EDT) Neutro Absolute: 5.9 E9/L (09/13/18 23:03:00 EDT) Lymph Absolute: 3 E9/L (09/13/18 23:03:00 EDT) [place] Absolute: 0.7 E9/L (09/13/18 23:03:00 EDT) Eos Absolute: 0.2 E9/L (09/13/18 23:03:00 EDT) Basophil Absolute: 0.1 E9/L (09/13/18 23:03:00 EDT) PT: 11.2 second(s) (09/13/18 23:03:00 EDT) INR: 1 (09/13/18 23:03:00 EDT) PTT: 34.5 second(s) (09/13/18 23:03:00 EDT) Glucose Lvl: 102 mg/dL (09/13/18 23:03:00 EDT) BUN: 15 mg/dL (09/13/18 23:03:00 EDT) Creatinine: 0.6 mg/dL (09/13/18 23:03:00 EDT) eGFR: >60 (09/13/18 23:03:00 EDT) eGFR AA: >60 (09/13/18 23:03:00 EDT) BUN/Creat Ratio: 25 High (09/13/18 23:03:00 EDT) Sodium Lvl: 136 mmol/L (09/13/18 23:03:00 EDT) Potassium Lvl: 3.6 mmol/L (09/13/18 23:03:00 EDT) Chloride: 103 mmol/L (09/13/18 23:03:00 EDT) CO2: 24 mmol/L (09/13/18 23:03:00 EDT) AGAP: 13 mEq/L (09/13/18 23:03:00 EDT) Calcium Lvl: 9.5 mg/dL (09/13/18 23:03:00 EDT) Alk Phos: 69 Int._Unit/L (09/13/18 23:03:00 EDT) ALT: 27 Int._Unit/L (09/13/18 23:03:00 EDT) AST: 16 Int._Unit/L (09/13/18 23:03:00 EDT) Total Protein: 7.8 gm/dL (09/13/18 23:03:00 EDT) Albumin Lvl: 4.1 gm/dL (09/13/18 23:03:00 EDT) Globulin: 3.7 gm/dL (09/13/18 23:03:00 EDT) A/G Ratio: 1.1 (09/13/18 23:03:00 EDT) Bili Total: 0.5 mg/dL (09/13/18 23:03:00 EDT) Bili Direct: <0.1 (09/13/18 23:03:00 EDT) Bili Indirect: Unable to Calculate Abnormal (09/13/18 23:03:00 EDT) Phosphorus: 3.8 mg/dL (09/13/18 23:03:00 EDT) Magnesium: 1.9 mg/dL (09/13/18 23:03:00 EDT) Myoglobin: 9 ng/mL (09/13/18 23:03:00 EDT) Troponin: <0.03 (09/13/18 23:03:00 EDT) Total CK: 53 Int._Unit/L (09/13/18 23:03:00 EDT) UA Spec Desc: Clean Catch (09/14/18 00:08:00 EDT) UA Color: Yellow2 (09/14/18 00:08:00 EDT) UA Clarity: Clear2 (09/14/18 00:08:00 EDT) UA Spec Grav: 1.010 (09/14/18 00:08:00 EDT) UA pH: 6.0 (09/14/18 00:08:00 EDT) UA Protein: NEGATIVE1 (09/14/18 00:08:00 EDT) UA Glucose: NEGATIVE1 (09/14/18 00:08:00 EDT) UA Ketones: NEGATIVE1 (09/14/18 00:08:00 EDT) UA Bili: NEGATIVE1 (09/14/18 00:08:00 EDT) UA Blood: NEGATIVE1 (09/14/18 00:08:00 EDT) UA Nitrite: NEGATIVE1 (09/14/18 00:08:00 EDT) UA Urobilinogen: 0.2 (09/14/18 00:08:00 EDT) UA Leuk Est: NEGATIVE1 (09/14/18 00:08:00 EDT) UA RBC: 0-3 (09/14/18 00:08:00 EDT) UA Squam Epithelial: 0-2 (09/14/18 00:08:00 EDT) UA WBC: 0-5 (09/14/18 00:08:00 EDT) UA Bacteria: Trace2 (09/14/18 00:08:00 EDT) UA Mucous: Trace2 (09/14/18 00:08:00 EDT) Diagnostic Results No qualifying data available. Normal [facility] Comment on above: Result Comment: Elec tronically Signed By: Génesis Lozoya DO\.dyan\Date and Time Signed: 09/14/18 01:59 EDT ED Patient Education Noteon 09-14-2018 ED Patient Education Note Family Medicine Paresthesia Paresthesia is a burning or prickling feeling. This feeling can happen in any part of the body. It often happens in the hands, arms, legs, or feet. HOME CARE ? Avoid drinking alcohol. ? Try massage or needle therapy (acupuncture) to help with your problems. ? Keep all doctor visits as told. GET HELP RIGHT AWAY IF: ? You feel weak. ? You have trouble walking or moving. ? You have problems speaking or seeing. ? You feel confused. ? You cannot control when you poop (bowel movement) or pee (urinate). ? You lose feeling (numbness) after an injury. ? You pass out (faint). ? Your burning or prickling feeling gets worse when you walk. ? You have pain, cramps, or feel dizzy. ? You have a rash. MAKE SURE YOU: ? Understand these instructions. ? Will watch your condition. ? Will get help right away if you are not doing well or get worse. Document Released: 04/22/2009 Document Revised: 08/01/2012 Document Reviewed: 01/29/2012 ExitCare? Patient Information ?2015 [employer]. This information is not intended to replace advice given to you by your health care provider. Make sure you discuss any questions you have with your health care provider. Restless Legs Syndrome Restless legs syndrome is a movement disorder. It may also be called a sensorimotor disorder. CAUSES No one knows what specifically causes restless legs syndrome, but it tends to run in families. It is also more common in people with low iron, in , in people who need dialysis, and those with nerve damage (neuropathy).?Some medications may make restless legs syndrome worse.?Those medications include drugs to treat high blood pressure, some heart conditions, nausea, colds, allergies, and depression. SYMPTOMS Symptoms include uncomfortable sensations in the legs. These leg sensations are worse during periods of inactivity or rest. They are also worse while sitting or lying down. Individuals that have the disorder describe sensations in the legs that feel like: ? Pulling. ? Drawing. ? Crawling. ? Worming. ? [place]. ? Tingling. ? Pins and needles. ? Prickling. ? Pain. The sensations are usually accompanied by an overwhelming urge to move the legs. Sudden muscle jerks may also occur. Movement provides temporary relief from the discomfort. In rare cases, the arms may also be affected. Symptoms may interfere with going to sleep (sleep onset insomnia). Restless legs syndrome may also be related to periodic limb movement disorder (PLMD). PLMD is another more common motor disorder. It also causes interrupted sleep. The symptoms from PLMD usually occur most often when you are awake. TREATMENT Treatment for restless legs syndrome is symptomatic. This means that the symptoms are treated. ? Massage and cold compresses may provide temporary relief. ? Walk, stretch, or take a cold or hot bath. ? Get regular exercise and a good night's sleep. ? Avoid caffeine, alcohol, nicotine, and medications that can make it worse. ? Do activities that provide mental stimulation like discussions, needlework, and video games. These may be helpful if you are not able to walk or stretch. Some medications are effective in relieving the symptoms. However, many of these medications have side effects. Ask your caregiver about medications that may help your symptoms. Correcting iron deficiency may improve symptoms for some patients. Document Released: 04/30/2003 Document Revised: 09/24/2014 Document Reviewed: 08/06/2011 ExitCare? Patient Information ?2015 [employer]. This information is not intended to replace advice given to you by your health care provider. Make sure you discuss any questions you have with your health care provider. Normal [facility] ED Patient Summaryon 019 ED Patient Summary (Inserted Image. Melissa ble to display) [address] [address] Patient Discharge Instructions Person Information Name: JONES HALEY Age: 37 Years Arrival Date: 09/13/2018 10:16 PM Discharge Diagnosis: 1:Restless leg syndrome Primary Care Physician: Charles Mitchell DO Provider Information Primary Provider: Génesis Lozoya DO Advanced Equity Structurer:None The exam and treatment you received in the Emergency Department were for an urgent problem and are not intended as complete care. It is important that you follow up with a doctor, nurse practitioner, or physician?s rehabilitation assistant for ongoing care. If your symptoms become worse or you do not improve as expected and you are unable to reach your usual health care provider, you should return to the Emergency Department. We are available 24 hours a day. JONES HALEY has been given the following list of patient education materials, prescriptions and follow-up instructions: Follow-up Instructions: With: Address: When: Sayda Kelley [facility], [address] [place] [address] Business (1) Within 1 to 2 days Comments: neurologist you may also follow up with him With: Address: When: Charles Mitchell [address] [place] [address] Business (1) Within 1 to 2 days Comments: Return to ED if symptoms worsen In the event that this physician does not participate in your insurance network, please consult with your insurance company to find a nearby participating provider. Patient Education Materials: Paresthesia, [id number]-[id number]; Restless Legs Syndrome A MESSAGE TO ALL PATIENTS REGARDING OPIOIDS PRESCRIPTION OPIOIDS: WHAT YOU NEED TO KNOW Prescription opioids can be used to help relieve [id number]-pcspcr pain and are often prescribed following a surgery or injury, or for certain health conditions. These medications can be an important part of the treatment but also come with serious risks. It is important to work with your healthcare provider to make sure you are getting the safest, most effective care. WHAT ARE THE RISKS AND SIDE EFFECTS OF OPIOID USE? Prescription opioids carry serious risks of addiction and overdose, especially with prolonged use. An opioid overdose, often marked by slowed breathing, can cause sudden . The use of prescription opioids can have a number of side effects as well, even when taken as directed: ? Tolerance?meaning you might need to take more of the medication for the same pain relief ? Physical dependence?meaning you have symptoms of withdrawal when a medication is stopped ? Increased sensitivity to pain ? Constipation ? Nausea, vomiting, and dry mouth ? Sleepiness and dizziness ? Confusion ? Depression ? Low levels of testosterone that can result in lower sex drive, energy, and strength ? Itching and sweating RISKS ARE GREATER WITH: ? History of drug misuse, substance use disorder, or overdose ? Mental health conditions (such as depression or anxiety) ? Sleep apnea ? Older age (65 years and older) ? Avoid alcohol while taking prescription opioids. Also, unless specifically advised by your health care provider, medications to avoid include: ? Benzodiazepines (such as Xanax or Valium) ? Muscle relaxants (such as Soma or Flexeril) ? Hypnotics (such as Ambien or Lunesta) ? Other prescription opioids KNOW YOUR OPTIONS Talk to your health care provider about ways to manage your pain that don?t involve prescription opioids. Some of these options may actually work better and have fewer risks and side effects. Options may include: ? Pain relievers such as acetaminophen, ibuprofen, and naproxen ? Some medication that are also used for depression or seizures ? Physical therapy and exercise ? Cognitive behavioral therapy, a psychological, goal-directed approach, in which patients learn how to modify physical, behavioral, and emotional triggers of pain and stress. IF YOU ARE PRESCRIBED OPIOIDS FOR PAIN: ? Never take opioids in greater amounts or more often than prescribed. ? Follow up with your primary health care provider. o Work together to create a plan on how to manage your pain. o Talk about ways to help manage your pain that don?t involve prescription opioids. o Talk about any and all concerns and side effects. ? Help prevent misuse and abuse o Never sell or share prescription opioids. o Never use another person?s prescription opioids. ? Store prescription opioids in a secure place and out of reach of others (this may include visitors, children, friends, and family). ? Safely dispose of unused prescription opioids: Find your community drug take-back program or your pharmacy mail-back program, or flush them down the toilet, following guidance from the Food and Drug Administration (www.fda.gov/Drugs/Resource sForYou). ? Visit www.cdc.gov/drugoverdose to learn about the risks of opioids abuse and overdose. ? If you believe you may be struggling with addiction, tell your health care management associate and ask for guidance or call [facility] National Helpline at 8-205-116-WEOJ. g Source: [place] Department of Health and Human Services/Center for Disease Control & Prevention [facility] Medications Given: Medication Dose Route Sodium Chloride 0.9% intravenous solution 1000.00 mL Initial Volume 1000.00 mL/hr IV Piggyback Left Mid Forearm Medication Information: New Medications [id number], [address], [place] [id number], [phone] gabapentin (gabapentin 100 mg Cap) 1 Capsules By Mouth every day for 7 Days. Refills: 0. magnesium oxide (magnesium oxide 400 mg Tab) 1 Tabs By Mouth every day for 7 Days. Refills: 0. [facility], [address] [place], [place] [id number], [phone] gabapentin (gabapentin 100 mg Cap) 1 Capsules By Mouth every day for 7 Days. Refills: 0. magnesium oxide (magnesium oxide 400 mg Tab) 1 Tabs By Mouth every day for 7 Days. Refills: 0. Medications to Continue with No Changes Other Medications metformin (metformin 500 mg ER Tab) 250 Milligram By Mouth 2 times a day. Comment: Pharmacy Information: Thank you for choosing [facility] Patient Education Materials: Paresthesia Paresthesia is a burning or prickling feeling. This feeling can happen in any part of the body. It often happens in the hands, arms, legs, or feet. HOME CARE ? Avoid drinking alcohol. ? Try massage or needle therapy (acupuncture) to help with your problems. ? Keep all doctor visits as told. GET HELP RIGHT AWAY IF: ? You feel weak. ? You have trouble walking or moving. ? You have problems speaking or seeing. ? You feel confused. ? You cannot control when you poop (bowel movement) or pee (urinate). ? You lose feeling (numbness) after an injury. ? You pass out (faint). ? Your burning or prickling feeling gets worse when you walk. ? You have pain, cramps, or feel dizzy. ? You have a rash. MAKE SURE YOU: ? Understand these instructions. ? Will watch your condition. ? Will get help right away if you are not doing well or get worse. Document Released: 04/22/2009 Document Revised: 08/01/2012 Document Reviewed: 01/29/2012 ExitCare? Patient Information ?2015 [facility]. This information is not intended to replace advice given to you by your health care provider. Make sure you discuss any questions you have with your health care provider. Restless Legs Syndrome Restless legs syndrome is a movement disorder. It may also be called a sensorimotor disorder. CAUSES No one knows what specifically causes restless legs syndrome, but it tends to run in families. It is also more common in people with low iron, in , in people who need dialysis, and those with nerve damage (neuropathy).?Some medications may make restless legs syndrome worse.?Those medications include drugs to treat high blood pressure, some heart conditions, nausea, colds, allergies, and depression. SYMPTOMS Symptoms include uncomfortable sensations in the legs. These leg sensations are worse during periods of inactivity or rest. They are also worse while sitting or lying down. Individuals that have the disorder describe sensations in the legs that feel like: ? Pulling. ? Drawing. ? Crawling. ? Worming. ? [place]. ? Tingling. ? Pins and needles. ? Prickling. ? Pain. The sensations are usually accompanied by an overwhelming urge to move the legs. Sudden muscle jerks may also occur. Movement provides temporary relief from the discomfort. In rare cases, the arms may also be affected. Symptoms may interfere with going to sleep (sleep onset insomnia). Restless legs syndrome may also be related to periodic limb movement disorder (PLMD). PLMD is another more common motor disorder. It also causes interrupted sleep. The symptoms from PLMD usually occur most often when you are awake. TREATMENT Treatment for restless legs syndrome is symptomatic. This means that the symptoms are treated. ? Massage and cold compresses may provide temporary relief. ? Walk, stretch, or take a cold or hot bath. ? Get regular exercise and a good night's sleep. ? Avoid caffeine, alcohol, nicotine, and medications that can make it worse. ? Do activities that provide mental stimulation like discussions, needlework, and video games. These may be helpful if you are not able to walk or stretch. Some medications are effective in relieving the symptoms. However, many of these medications have side effects. Ask your caregiver about medications that may help your symptoms. Correcting iron deficiency may improve symptoms for some patients. Document Released: 04/30/2003 Document Revised: 09/24/2014 Document Reviewed: 08/06/2011 ExitCare? Patient Information ?2014 [employer]. This information is not intended to replace advice given to you by your health care provider. Make sure you discuss any questions you have with your health care provider. TERA Dorantes NICOLE B , have received the following patient education materials/instructions and have verbalized understanding: Patient Education Materials: Paresthesia, Geem-cf-Rxfh; Restless Legs Syndrome Follow-up Instructions: With: Address: When: Sayda Kelley [facility], [address] [place] [address] Business (1) Within 1 to 2 days Comments: neurologist you may also follow up with him With: Address: When: [address] [address] Business (1) Within 1 to 2 days Comments: Return to ED if symptoms worsen Prescriptions: [gabapentin (gabapentin 100 mg Cap)] [gabapentin (gabapentin 100 mg Cap)] [magnesium oxide (magnesium oxide 400 mg Tab)] [magnesium oxide (magnesium oxide 400 mg Tab)] Patient Signature Date Clinician/Nurse Signature Date 09/14/18 00:21:[address] [facility] Hep Func Panelon 09-14-2018 Bilirubin.direct [Mass/Vol] UTC Abnormal 0.1-0.[address] [facility] Comment on above: Result Comment: Resu lt verified by Discern Rule. Performed result [facility] (Unable to Calculate) was sent as an Alpha code due the inability to calculate a valid numeric value. Performed By: #### 1 [id number], 6415238, 4160787, 8193347, 09683617, 1885376, 2453101, 6929792, 0594315, 15435335, 3778384 #### [facility] [address] [place] [address] Albumin [Mass/Vol] 1.1 g/dL Normal 1.1-2.[address] [facility] Comment on above: Performed By: #### 1 [id number], 8227901, 2519227, 9205518, 99130860, 0915507, 7358564, 8594865, 8294821, 88565459, 8727059 #### [facility] [address] [place] [address] Albumin [Mass/Vol] 4.1 g/dL Normal 3.3-5.[address] [facility] Comment on above: Performed By: #### 1 0071064, 6156806, 3663373, 8026516, 15882344, 5181594, 0358317, 4728198, 7368156, 75476026, 5053607 #### [facility] [address] [place] [address] ALP [Catalytic activity/Vol] 69 Int._Unit/L Normal 21-[address] [facility] Comment on above: Performed By: #### 1 1351779, 6130636, 9452393, 0465615, 42695962, 0241744, 0417906, 8060964, 0126344, 48626412, 7226706 #### [facility] [address] [place] [address] ALT No additional P-5'-P [Catalytic activity/Vol] 27 Int._Unit/L Normal 6-[address] [facility] Comment on above: Performed By: #### 1 9308806, 7152200, 8402108, 5063667, 93122012, 7397102, 0335172, 0679024, 1843704, 48151832, 5191106 #### [facility] [address] [place] [address] AST [Catalytic activity/Vol] 16 Int._Unit/L Normal 5-[address] [facility] Comment on above: Performed By: #### 1 1420219, 5312811, 8313338, 0172966, 57883086, 3092938, 3371838, 6143910, 1233738, 84061000, 3468188 #### [facility] [address] [place] [address] Bilirubin [Mass/Vol] 0.5 mg/dL Normal 0.0-1.1 [facility] Comment on above: Performed By: #### 1 9016790, 7745472, 5989108, 9486844, 11021009, 9278692, 8384987, 1218686, 0478294, 18607587, 4569681 #### [facility] [address] [place] [address] Bilirubin.direct [Mass/Vol] mg/dL Normal 0.1-0.[address] [facility] Comment on above: Performed By: #### 1 1428665, 7925277, 4697405, 1271459, 70859249, 3007724, 1710146, 7599086, 3300316, 12724604, 7325875 #### [facility] [address] [place] [address] Globulin (S) [Mass/Vol] 3.7 g/dL Normal 1.4-4.[address] [facility] Comment on above: Performed By: #### 1 4018860, 6512554, 8758697, 0527042, 60308497, 5339925, 4656601, 1566900, 0929735, 62066259, 5302691 #### [facility] [address] [place] [address] Protein [Mass/Vol] 7.8 g/dL Normal 6.0-7.[address] [facility] Comment on above: Performed By: #### 1 4518413, 8173734, 3666661, 3184233, 88899343, 5961838, 8959038, 3110383, 6288230, 49481134, 0693634 #### [facility] [address] [place] [address] Magnesiumon 09-14-2018 Magnesium [Mass/Vol] 1.9 mg/dL Normal 1.3-2.4 [facility] Comment on above: Performed By: #### 1 5457838, 9859210, 6325879, 8620164, 36040350, 5125179, 0974831, 5810062, 0468053, 54400476, 2075307 #### [facility] [address] [place] [address] Myoglobinon 09-14-2018 Myoglobin [Mass/Vol] 9 ng/mL Normal <=69 [facility] Comment on above: Performed By: #### 1 6571852, 3419934, 4616532, 7133035, 60934285, 7985699, 4508690, 8834110, 6372545, 92037545, 0279379 #### [facility] [address] [place] [address] PT & PTTon 09-14-2018 aPTT Coag (PPP) [Time] 34.5 second(s) Normal 25.1-36.[address] [facility] Comment on above: Result Comment: Hepa rin therapeutic range (represented by Anti-Factor Xa activity of 0.2 - 0.4 U/mL) corresponds to PTT of 56.6 - 109.0 sec. Performed By: #### 1 0408905, 6362888, 9715200, 6299324, 91641032, 7118996, 3313063, 8256640, 6070634, 90523740, 2867263 #### [facility] [address] [place] [address] INR Coag (PPP) [Relative time] 1.0 {INR} [facility] Comment on above: Result Comment: INR results are specifically intended to assess patients stabilized on long-term Anticoagulation therapy suggested INR?s ?Less Intensive Anticoagulation? 2.0 ? 3.0 Conventional Range 3.0 ? 4.5 Performed By: #### 1 6286305, 5024031, 8822439, 7360043, 44702566, 1883571, 9103913, 2004232, 1553548, 07246137, 5617751 #### [facility] [address] [place] [address] PT Coag (PPP) [Time] 11.2 second(s) Normal 10.2-12.[address] [facility] Comment on above: Performed By: #### 1 2704785, 3157074, 8138792, 5488632, 17498067, 6076436, 3910475, 3337586, 1727735, 35608726, 6857824 #### [facility] [address] [place] [address] Phosphoruson 09-14-2018 Phosphate [Mass/Vol] 3.8 mg/dL Normal 1.9-4.6 [facility] Comment on above: Performed By: #### 1 1783285, 0929506, 7758308, 7548241, 05941027, 5108161, 6996986, 7776035, 8868379, 32536849, 8369106 #### [facility] [address] [place] [address] Troponin 0 Hr.on 09-14-2018 Troponin I.cardiac [Mass/Vol] ng/mL Normal <=0.[address] [facility] Comment on above: Result Comment: New Troponin Assay 10/05/13 [place] Cutoff value > or = 0.03 ng/mL in conjunction with clinical conditions of myocardial infarction. ([email or web address]) Performed By: #### 1 6905380, 8256180, 6087470, 6426269, 78445663, 4234495, 2771326, 8067364, 8392620, 90988205, 9100633 #### [facility] [address] [place] [address] UA With Cult Reflexon 2018 Bacteria LM Ql (Urine sed) TRACE Normal Trace [facility] Comment on above: Performed By: #### 1 7064335, 0100644, 3296738, 8314704, 21584389, 0580662, 2826868, 5208388, 1485599, 91487083, 7010905 #### [facility] [address] [place] [address] Bilirubin Ql (U) Negative Normal Negative [facility] Comment on above: Performed By: #### 1 7803970, 1256251, 1784000, 0801225, 70051496, 0392234, 3778260, 7083353, 1369755, 28880590, 4197777 #### [facility] [address] [place] [address] Clarity (U) CLEAR Normal Clear [facility] Comment on above: Performed By: #### 1 9007468, 9419982, 2607098, 5902041, 99402390, 1186149, 2774101, 3869650, 1136334, 45670378, 5596936 #### [facility] [address] [place] [address] Color (U) YELLOW Normal Yellow [facility] Comment on above: Performed By: #### 1 2840728, 0065917, 1791058, 6404869, 77026467, 1364500, 0462814, 4167786, 2304127, 89016291, 6525268 #### [facility] [address] [place] [address] Epithelial cells.squamous LM.HPF (Urine sed) [#/Area] 0-2 Normal 0-[address] [facility] Comment on above: Performed By: #### 1 3911447, 4112640, 1137170, 5858197, 60063956, 8581036, 5150270, 8019790, 5014701, 10155800, 2419263 #### [facility] [address] [place] [address] Glucose Test strip (U) [Mass/Vol] Negative Normal Negative [facility] Comment on above: Performed By: #### 1 2627295, 6349004, 3186989, 9619737, 14509750, 4407378, 4311879, 4188952, 9095684, 16322204, 2282543 #### [facility] [address] [place] [address] Hemoglobin Ql (U) Negative Normal Negative [facility] Comment on above: Performed By: #### 1 8802431, 6927244, 4387231, 0561878, 45838913, 8393078, 2826746, 6307761, 1395842, 01830364, 0617660 #### [facility] [address] [place] [address] Ketones (U) [Mass/Vol] Negative Normal Negative [facility] Comment on above: Performed By: #### 1 4886881, 7732623, 8151605, 8754131, 36284477, 3908183, 4771985, 5650994, 4113439, 70967765, 8027487 #### [facility] [address] [place], [place] [address] [place].plasma/Lithi um.RBC (Bld) [Mass ratio] 0-3 Normal 0-[address] [facility] Comment on above: Performed By: #### 1 0176813, 6007220, 7075524, 9041790, 53907556, 8730169, 4424941, 5427084, 6440206, 60781425, 2705360 #### [facility] [address] [place] [address] Mucus Ql (Urine sed) TRACE Normal [facility] Comment on above: Performed By: #### 1 8274846, 7684910, 9297875, 8738131, 07004575, 6699021, 3392205, 0391583, 0798186, 98964292, 8288743 #### [facility] [address] [place] [address] Nitrite Ql (U) Negative Normal Negative [facility] Comment on above: Performed By: #### 1 8937364, 7112970, 5486275, 9475128, 75191785, 0482831, 1653284, 9744574, 7745550, 92389623, 2674690 #### [facility] [address] [place] [address] pH (U) 6.0 [pH] 5.0-9.[address] [facility] Comment on above: Performed By: #### 1 3718260, 1052064, 8296896, 0960486, 72509250, 5017099, 0806800, 3997503, 4060859, 01205597, 8469257 #### [facility] [address] [place] [address] Protein (U) [Mass/Vol] Negative Normal Negative [facility] Comment on above: Performed By: #### 1 3849785, 2855914, 5071790, 3548021, 54402085, 5984347, 8405367, 4782852, 4652122, 91286111, 3100375 #### [facility] [address] [place] [address] Specific gravity (U) [Rel density] 1.010 1.005-1.[address] [facility] Comment on above: Performed By: #### 1 4357433, 5955322, 1381524, 4236969, 91281409, 8135572, 0244633, 8458625, 1944377, 33350574, 4554053 #### [facility] [address] [place] [address] UA Spec Desc Clean Catch Normal [facility] Comment on above: Performed By: #### 1 1614721, 8535254, 9098070, 0177700, 78170986, 8048758, 0321772, 6092306, 7084832, 63731380, 3027972 #### [facility] [address] [place] [address] Urobilinogen Qn (U) 0.2 {Carmella'U}/dL Normal 0.0-1.[address] [facility] Comment on above: Performed By: #### 1 1902852, 2316760, 4320106, 6619013, 52610441, 8679404, 7289169, 6936061, 4075997, 93126856, 6487875 #### [facility] [address] [place] [address] WBC Auto Ql (U) Negative Normal Negative [facility] Comment on above: Performed By: #### 1 6409512, 6472951, 7345997, 0275768, 65246259, 2584667, 9695073, 7003902, 1349037, 40818372, 8844771 #### [facility] [address] [place] [address] WBC LM.HPF (Urine sed) [#/Area] 0-5 Normal 0-[address] [facility] Comment on above: Performed By: #### 1 5912202, 7152743, 1463302, 3050727, 66629790, 0951367, 9409304, 7242509, 3534428, 65320088, 9760026 #### [facility] [address] [place] [address] XR Chest Single Viewon 09-14 XR Chest Single View Exam Date/Time: 09/13/2018 23:44 EDT Reason for Exam: Chest pain Report IMPRESSION: NO ACTIVE PULMONARY DISEASE. COMMENT: AP portable chest shows normal-sized heart and unremarkable bronchovascular markings. There are no pneumonic infiltrates or consolidation. Both costophrenic angles are sharp. FINAL REPORT Dictated: 09/14/2018 8:03 am Sanjay Alcocer M.D. Signed (Electronic Signature): 09/14/2018 9:01 am Signed by: Sanjay Alcocer M.D. Transcribed by: [email or web address] Technologist: AP Normal [facility] XR FOOT LEFT (MIN 3 VIEWS)on 09-14-2018 XR FOOT LEFT (MIN 3 VIEWS) Radiology exam is complete. No Radiologist dictation. Please follow up with ordering provider. Final result Normal [facility] XR FOOT RIGHT (MIN 3 VIEWS)o n 09-14-2018 XR FOOT RIGHT (MIN 3 VIEWS) Radiology exam is complete. No Radiologist dictation. Please follow up with ordering provider. Final result Normal [facility] eGFRon 09-14-2018 GFR/1.73 sq M predicted among blacks MDRD (S/P/Bld) [Vol rate/Area] mL/min/{1.73_m2} Normal >=[address] [facility] Comment on above: Order Comment: Order added by Discern Expert. Result Comment: eGFR is race adjusted. AA=. Performed By: #### 1 2467899, 5955773, 8235500, 4985550, 71047737, 6910352, 1713973, 2322371, 5807080, 77321827, 9551240 #### [facility] [address] [place] [address] GFR/1.73 sq M predicted among non-blacks MDRD (S/P/Bld) [Vol rate/Area] mL/min/{1.73_m2} Normal >=[address] [facility] Comment on above: Order Comment: Order added by Discern Expert. Result Comment: Area Captain anthony kidney disease could be indicated at eGFR's of less than 60 mL/min/1.73m2. Kidney failure is indicated at less than 15 mL/min/1.73m2. Performed By: #### 1 2261769, 2901751, 4471600, 8125463, 91348547, 1113943, 1137466, 9170523, 0129942, 30109441, 0397477 #### [facility] [address] [place] [address] Vital Signs Date Time Vital Sign Value Performing Clinician Facility 06-09-2023 08:45-0500 Body height 170.2 cm Michelle TABOR Work Phone: [facility] 06-09-2023 08:45-0500 Body mass index (BMI) [Ratio] 44.48 kg/m2 Michelle Britton APRN-PSYCH THERAPIST Work Phone: [facility] 06-09-2023 08:45-0500 Body weight 128.82 kg Michelle Britton APRN-PSYCH THERAPIST Work Phone: [facility] 06-09-2023 08:45-0500 Diastolic blood pressure 82 mm[Hg] Michelle Britton APRN-PSYCH THERAPIST Work Phone: [facility] 06-09-2023 08:45-0500 Heart rate 80 /min Michelle Britton MANAGER COUNTRY-PSYCH THERAPIST Work Phone: [facility] 06-09-2023 08:45-0500 Systolic blood pressure 146 mm[Hg] Michelle Britton MANAGER COUNTRY-PSYCH THERAPIST Work Phone: [facility] 05-26-2023 17:17-0500 Body weight 123.83 kg Christie Phan MD Work Phone: [facility] [place] 04-26-2023 14:42-0500 Body weight 125.19 kg Christie Phan MD Work Phone: [facility] [place] 03-19-2023 11:16-0400 Body temperature 97.7 [degF] Ma Sand Work Phone: [facility] 03-19-2023 11:16-0400 Diastolic blood pressure 54 mm[Hg] Ma Sand Work Phone: [facility] 03-19-2023 11:16-0400 Heart rate 75 /min Ma Sand Work Phone: [facility] [place] 03-19-2023 11:16-0400 Respiratory rate 16 /min Ma Sand Work Phone: [facility] [place] 03-19-2023 11:16-0400 SaO2% (BldA) [Mass fraction] 96 % Ma Sand Work Phone: [facility] [place] 03-19-2023 11:16-0400 Systolic blood pressure 111 mm[Hg] Ma Sand Work Phone: [facility] [place] 02-19-2023 10:56-0400 Body height 170.2 cm Jose Najera MD Work Phone: [facility] [place] 02-19-2023 10:56-0400 Body temperature 97.39 [degF] Jose Najera MD Work Phone: [facility] [place] 02-19-2023 10:56-0400 Body weight 120.75 kg Jose Najera MD Work Phone: [facility] 02-19-2023 10:56-0400 Diastolic blood pressure 69 mm[Hg] Jose Najera MD Work Phone: [facility] [place] 02-19-2023 10:56-0400 Heart rate 110 /min Jose Najera MD Work Phone: [facility] [place] 02-19-2023 10:56-0400 Respiratory rate 16 /min Jose Najera MD Work Phone: [facility] [place] 02-19-2023 10:56-0400 SaO2% (BldA) [Mass fraction] 96 % Jose Najera MD Work Phone: [facility] [place] 02-19-2023 10:56-0400 Systolic blood pressure 132 mm[Hg] Jose Najera MD Work Phone: [facility] [place] 01-22-2023 12:09-0400 Diastolic blood pressure 76 mm[Hg] Ma Sand Work Phone: [facility] [place] 01-22-2023 12:09-0400 Systolic blood pressure 107 mm[Hg] Ma Sand Work Phone: [facility] [place] 01-22-2023 12:08-0400 Body temperature 97.59 [degF] Ma Sand Work Phone: [facility] [place] 01-22-2023 12:08-0400 Heart rate 102 /min Ma Sand Work Phone: [facility] [place] 01-22-2023 12:08-0400 Respiratory rate 16 /min Ma Sand Work Phone: [facility] [place] 01-22-2023 12:08-0400 SaO2% (BldA) [Mass fraction] 97 % Ma Sand Work Phone: [facility] [place] 11-19-2022 11:00-0400 Body temperature 97.2 [degF] Ma Sand Work Phone: [facility] [place] 11-19-2022 11:00-0400 Diastolic blood pressure 54 mm[Hg] Ma Sand Work Phone: [facility] [place] 11-19-2022 11:00-0400 Heart rate 98 /min Ma Sand Work Phone: [facility] [place] 11-19-2022 11:00-0400 Respiratory rate 16 /min Ma Sand Work Phone: [facility] [place] 11-19-2022 11:00-0400 SaO2% (BldA) [Mass fraction] 98 % Ma Sand Work Phone: [facility] [place] 11-19-2022 11:00-0400 Systolic blood pressure 126 mm[Hg] Ma Sand Work Phone: [facility] [place] 10-22-2022 11:51-0400 Body height 170.2 cm Ma Sand Work Phone: [facility] [place] 10-22-2022 11:51-0400 Body weight 120.66 kg Ma Sand Work Phone: [facility] [place] 10-22-2022 11:51-0400 Respiratory rate 16 /min Ma Sand Work Phone: [facility] [place] 10-22-2022 10:50-0400 Body height 170.2 cm Jose Najera MD Work Phone: [facility] [place] 10-22-2022 10:50-0400 Body temperature 97 [degF] Jose Najera MD Work Phone: [facility] [place] 10-22-2022 10:50-0400 Body weight 120.75 kg Jose Najera MD Work Phone: [facility] [place] 10-22-2022 10:50-0400 Diastolic blood pressure 55 mm[Hg] Jose Najera MD Work Phone: [facility] [place] 10-22-2022 10:50-0400 Heart rate 78 /min Jose Najera MD Work Phone: [facility] [place] 10-22-2022 10:50-0400 Respiratory rate 16 /min Jose Najera MD Work Phone: [facility] [place] 10-22-2022 10:50-0400 SaO2% (BldA) [Mass fraction] 98 % Jose Najera MD Work Phone: [facility] [place] 10-22-2022 10:50-0400 Systolic blood pressure 132 mm[Hg] Jose Najera MD Work Phone: [facility] [place] 09-24-2022 10:22-0400 Body height 170.2 cm Ma Sand Work Phone: [facility] [place] 09-24-2022 10:22-0400 Body temperature 97 [degF] Ma Sand Work Phone: [facility] [place] 09-24-2022 10:22-0400 Body weight 120.2 kg Ma Sand Work Phone: [facility] [place] 09-24-2022 10:22-0400 Diastolic blood pressure 81 mm[Hg] Ma Sand Work Phone: [facility] [place] 09-24-2022 10:22-0400 Heart rate 77 /min Ma Sand Work Phone: [facility] [place] 09-24-2022 10:22-0400 Respiratory rate 16 /min Ma Sand Work Phone: [facility] [place] 09-24-2022 10:22-0400 SaO2% (BldA) [Mass fraction] 97 % Ma Sand Work Phone: [facility] 09-24-2022 10:22-0400 Systolic blood pressure 116 mm[Hg] Ma Sand Work Phone: [facility] 09-07-2022 14:03-0400 Body weight 120.2 kg Christie Phan MD Work Phone: [facility] [place] 08-27-2022 09:45-0400 Body height 170.2 cm Wilmer Driver APRN.PSYCH THERAPIST Work Phone: [facility] [place] 08-27-2022 09:45-0400 Body temperature 97.7 [degF] Wilmer Driver APRN.PSYCH THERAPIST Work Phone: [facility] [place] 08-27-2022 09:45-0400 Body weight 118.66 kg Wilmer Driver MANAGER COUNTRY.PSYCH THERAPIST Work Phone: [facility] [place] 08-27-2022 09:45-0400 Diastolic blood pressure 55 mm[Hg] Wilmer Driver MANAGER COUNTRY.PSYCH THERAPIST Work Phone: [facility] [place] 08-27-2022 09:45-0400 Heart rate 63 /min Wilmer Driver MANAGER COUNTRY.PSYCH THERAPIST Work Phone: [facility] [place] 08-27-2022 09:45-0400 Respiratory rate 16 /min Wilmer Driver MANAGER COUNTRY.PSYCH THERAPIST Work Phone: [facility] [place] 08-27-2022 09:45-0400 SaO2% (BldA) [Mass fraction] 96 % Wilmer Driver MANAGER COUNTRY.PSYCH THERAPIST Work Phone: [facility] [place] 08-27-2022 09:45-0400 Systolic blood pressure 117 mm[Hg] Wilmer Driver MANAGER COUNTRY.PSYCH THERAPIST Work Phone: [facility] [place] 05-20-2022 13:28-0500 Body height 170.2 cm Jose Najera MD Work Phone: [facility] [place] 05-20-2022 13:28-0500 Body temperature 97.7 [degF] Jose Najera MD Work Phone: [facility] [place] 05-20-2022 13:28-0500 Diastolic blood pressure 70 mm[Hg] Jose Najera MD Work Phone: [facility] [place] 05-20-2022 13:28-0500 Heart rate 93 /min Jose Najera MD Work Phone: [facility] [place] 05-20-2022 13:28-0500 Respiratory rate 16 /min Jose Najera MD Work Phone: [facility] [place] 05-20-2022 13:28-0500 SaO2% (BldA) [Mass fraction] 97 % Jose Najera MD Work Phone: [facility] [place] 05-20-2022 13:28-0500 Systolic blood pressure 127 mm[Hg] Jose Najera MD Work Phone: [facility] [place] 03-18-2022 10:49-0400 Body height 170.2 cm Jose Najera MD Work Phone: [facility] [place] 03-18-2022 10:49-0400 Body temperature 97.81 [degF] Jose Najera MD Work Phone: [facility] [place] 03-18-2022 10:49-0400 Body weight 113.4 kg Jose Najera MD Work Phone: [facility] [place] 03-18-2022 10:49-0400 Diastolic blood pressure 49 mm[Hg] Jose Najera MD Work Phone: [facility] [place] 03-18-2022 10:49-0400 Heart rate 86 /min Jose Najera MD Work Phone: [facility] [place] 03-18-2022 10:49-0400 Respiratory rate 16 /min Jose Najera MD Work Phone: [facility] [place] 03-18-2022 10:49-0400 SaO2% (BldA) [Mass fraction] 98 % Jose Najera MD Work Phone: [facility] [place] 03-18-2022 10:49-0400 Systolic blood pressure 145 mm[Hg] Jose Najera MD Work Phone: [facility] [place] 03-09-2022 11:41-0400 Body height 170.2 cm Christie Phan MD Work Phone: [facility] [place] 03-09-2022 11:41-0400 Body weight 112.49 kg Christie Phan MD Work Phone: [facility] [place] 03-09-2022 11:41-0400 Diastolic blood pressure 100 mm[Hg] Christie Phan MD Work Phone: [facility] [place] 03-09-2022 11:41-0400 Systolic blood pressure 158 mm[Hg] Christie Phan MD Work Phone: [facility] [place] 03-04-2022 10:39-0400 Body height 170.2 cm Jose Najera MD Work Phone: [facility] [place] 03-04-2022 10:39-0400 Body temperature 97.5 [degF] Jose Najera MD Work Phone: [facility] [place] 03-04-2022 10:39-0400 Body weight 112.76 kg Jose Najera MD Work Phone: [facility] [place] 03-04-2022 10:39-0400 Diastolic blood pressure 48 mm[Hg] Jose Najera MD Work Phone: [facility] [place] 03-04-2022 10:39-0400 Heart rate 79 /min Jose Najera MD Work Phone: [facility] [place] 03-04-2022 10:39-0400 Respiratory rate 16 /min Jose Najera MD Work Phone: [facility] [place] 03-04-2022 10:39-0400 SaO2% (BldA) [Mass fraction] 99 % Jose Najera MD Work Phone: [facility] [place] 03-04-2022 10:39-0400 Systolic blood pressure 132 mm[Hg] Jose Najera MD Work Phone: [facility] [place] 11-26-2021 16:00-0400 Body height 168.91 cm Mirela Kelsey Other [employer] Other 11-26-2021 16:00-0400 Body mass index (BMI) [Ratio] 37.68 kg/m2 Mirela Kelsey Other [employer] Other 11-26-2021 16:00-0400 Body temperature 98.4 [degF] Mirela Kelsey Other [employer] Other 11-26-2021 16:00-0400 Body weight 107.5 kg Mirela Kelsey Other [employer] Other 11-26-2021 16:00-0400 Diastolic blood pressure 61 mm[Hg] Mirela Kelsey Other [employer] Other 11-26-2021 16:00-0400 Systolic blood pressure 115 mm[Hg] Mirela Kelsey Other [employer] Other 10-24-2021 08:18-0400 Body weight 108.86 kg Lynne Ni MD Work Phone: [facility] [place] 10-24-2021 08:18-0400 Diastolic blood pressure 42 mm[Hg] Lynne Ni MD Work Phone: [facility] [place] 10-24-2021 08:18-0400 Heart rate 72 /min Lynne Ni MD Work Phone: [facility] [place] 10-24-2021 08:18-0400 Systolic blood pressure 106 mm[Hg] Lynne Ni MD Work Phone: [facility] [place] 10-15-2021 15:45-0400 Body height 168.91 cm Mirela Kelsey Other [employer] Other 10-15-2021 15:45-0400 Body mass index (BMI) [Ratio] 38.31 kg/m2 Mirela Kelsey Other [employer] Other 10-15-2021 15:45-0400 Body temperature 98.1 [degF] Mirela Kelsey Other [employer] Other 10-15-2021 15:45-0400 Body weight 109.32 kg Mirela Kelsey Other [employer] Other 10-15-2021 15:45-0400 Diastolic blood pressure 60 mm[Hg] Mirela Kelsey Other [employer] Other 10-15-2021 15:45-0400 Systolic blood pressure 114 mm[Hg] Mirela Kelsey Other [employer] Other 09-11-2021 15:15-0400 Body height 168.91 cm Mirela Kelsey Other [employer] Other 09-11-2021 15:15-0400 Body mass index (BMI) [Ratio] 37.99 kg/m2 Mirela Kelsey Other [employer] Other 09-11-2021 15:15-0400 Body temperature 97.9 [degF] Mirela Kelsey Other [employer] Other 09-11-2021 15:15-0400 Body weight 108.41 kg Mirela Kelsey Other [employer] Other 09-11-2021 15:15-0400 Diastolic blood pressure 83 mm[Hg] Mirela Kelsey Other [employer] Other 09-11-2021 15:15-0400 Systolic blood pressure 144 mm[Hg] Mirela Kelsey Other [employer] Other 10-07-2020 12:45-0400 Diastolic blood pressure 78 mm[Hg] [facility] [employer] Phone: 10-07-2020 12:45-0400 Heart rate 68 /min [facility] [employer] Phone: 10-07-2020 12:45-0400 SaO2% (BldA) [Mass fraction] 99 % Stv [facility] Work Phone: 10-07-2020 12:45-0400 Systolic blood pressure 112 mm[Hg] [facility] [employer] Phone: 10-07-2020 10:45-0400 Respiratory rate 22 /min [employer] [employer] Phone: 10-07-2020 09:01-0400 Body height 170.2 cm [facility] [employer] Phone: 10-07-2020 09:01-0400 Body mass index (BMI) [Ratio] 36.65 kg/m2 [employer] [employer] Phone: 10-07-2020 09:01-0400 Body temperature 97.81 [degF] [facility] [employer] Phone: 10-07-2020 09:01-0400 Body weight 106.14 kg [facility] [employer] Phone: Encounters Encounter Date Encounter Type Care Provider Facility Start: 06-10-2023 End: 06-10-2023 ambulatory MADELAINE FERRIS Facility:[facility] Start: 06-09-2023 End: 06-09-2023 ambulatory [facility] Ambulatory Start: 06-09-2023 End: 06-09-2023 Office outpatient new 60 minutes [facility] MANAGER COUNTRY-PSYCH THERAPIST Work Phone: [facility] Comment on above: Irregular heart rate (Primary Dx); Essential hypertension; Autonomic dysfunction; Obstructive sleep apnea syndrome; Primary hypertension Start: 06-03-2023 End: 06-03-2023 ambulatory MADELAINE FERRIS Facility:[facility] Start: 06-01-2023 End: 06-01-2023 ambulatory MADELAINE FERRIS Facility:[facility] Start: 06-01-2023 End: 06-01-2023 ambulatory SHARRON ROGERS Not Available Start: 05-26-2023 End: 05-26-2023 ambulatory MADELAINE FERRIS Facility:[facility] Start: 05-26-2023 End: 05-26-2023 Office outpatient visit 40 minutes Christie Phan MD Work Phone: [facility] Comment on above: Obesity, Class III, BMI >= 40 (Primary Dx); Other chronic pain Start: 05-10-2023 End: 05-11-2023 ambulatory SHARRON ROGERS Not Available Start: 05-06-2023 End: 05-07-2023 ambulatory SHARRON ROGERS Not Available Start: 04-26-2023 End: 04-26-2023 Office outpatient visit 40 minutes Christie Phan MD Work Phone: [facility] Comment on above: Obesity, Class III, BMI >= 40 (Primary Dx); FUO (fever of unknown origin); Other chronic pain Start: 04-26-2023 End: 04-26-2023 ambulatory Christie Phan MD Work Phone: [facility] Comment on above: Phentermine Start: 04-22-2023 Telephone encounter Enma Osuna Hematology/Oncology Comment on above: Results Start: 04-21-2023 End: 04-21-2023 ambulatory SHARRON ROGERS Not Available Start: 04-16-2023 End: 04-16-2023 ambulatory MADELAINE Lynne [facility] Facility:[facility] Start: 04-16-2023 End: 04-16-2023 Nursing evaluation of patient and report Cele Marshall Work Phone: Hematology/Oncology Comment on above: 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); Elevated sed rate Start: 04-09-2023 End: 04-09-2023 ambulatory MADELAINE Lynne Cristina Facility:[facility] Start: 03-19-2023 End: 03-19-2023 ambulatory [facility] Facility:[facility] Start: 03-19-2023 End: 03-19-2023 Nursing evaluation of patient and report Cele Marshall Work Phone: Hematology/Oncology Comment on above: 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); Elevated sed rate Start: 03-16-2023 [facility] Work Phone: Neurology Comment on above: CMN Start: 03-11-2023 End: 03-11-2023 ambulatory [facility] Facility:[facility] Start: 03-11-2023 End: 03-11-2023 Nursing evaluation of patient and report Nurse Mora jain Fu Work Phone: Rheumatology Comment on above: Systemic lupus eryth ematosus, unspecified SLE type, unspecified organ involvement status (HCC) (Primary Dx) Start: 03-03-2023 End: 03-03-2023 ambulatory [facility] Facility:[facility] Start: 03-01-2023 Telephone encounter Lynne shaw MD Work Phone: Rheumatology Comment on above: Results (Eye Exam) Start: 02-19-2023 End: 02-19-2023 [facility] Facility:[facility] Start: 02-19-2023 End: 02-19-2023 Nursing evaluation of patient and report Ma Nurse Dre Marshall Work Phone: Hematology/Oncology Comment on above: 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); Elevated sed rate Start: 02-19-2023 End: 02-19-2023 Office outpatient visit 15 minutes Jose Najera MD Work Phone: Hematology/Oncology Comment on above: 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); Elevated sed rate; Chronic fatigue and malaise; High total serum IgM; JOSE RAFAEL (obstructive sleep apnea) Start: 02-13-2023 Refill Lynne Ni MD Work Phone: Rheumatology Comment on above: Refill Request Start: 02-11-2023 End: 02-11-2023 ambulatory [facility] Facility:[facility] Start: 02-04-2023 End: 02-04-2023 ambulatory Lynne Ni MD Work Phone: Rheumatology Comment on above: Other systemic lupus erythematosus with other organ involvement (HCC) (Primary Dx); CHRISTIAN positive; Family history of Crohn's disease; Fibromyalgia; Secondary osteoarthritis of multiple sites; Chronic bilateral low back pain with bilateral sciatica; Chronic pain of toes of both feet; Hair loss; Long-term use of Plaquenil; Vitamin B12 deficiency; Long-term use of high-risk medication; Discoid lupus erythematosus; Vitamin D deficiency; Elevated sed rate; Bilateral wrist pain; 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 Start: 02-04-2023 End: 02-04-2023 Telemedicine consultation with patient Lynne Ni MD Work Phone: [facility] Start: 01-28-2023 Refill Christie Hays Work Phone: Integrated Medicine Comment on above: Refill Request Start: 01-24-2023 Telephone encounter Lynne shaw MD Work Phone: Rheumatology Comment on above: Results Start: 01-22-2023 End: 01-22-2023 ambulatory [facility] Facility:[facility] Start: 01-22-2023 End: 01-22-2023 Nursing evaluation of patient and report Ne Nurse Dre Marshall Work Phone: Hematology/Oncology Comment on above: 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); Elevated sed rate Start: 01-17-2023 Orders Only Jose nelson MD Work Phone: Hematology/Oncology Comment on above: 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); High total serum IgM; Elevated sed rate Start: 01-01-2023 End: 01-01-2023 ambulatory Misty Nelson MD Work Phone: Allergy Comment on above: High total serum IgM (Primary Dx); Low serum IgG for age; Current smoker Start: 01-01-2023 End: 01-01-2023 Telemedicine consultation with patient Misty Nelson MD Work Phone: [facility] Start: 12-29-2022 End: 12-29-2022 ambulatory MADELAINE Batista Cristina Facility:[facility] Start: 12-24-2022 Refill Christie Hays Work Phone: [facility] Comment on above: Refill Request Start: 12-18-2022 Telephone encounter Lidia Argueta RN Work Phone: Hematology/Oncology Comment on above: Care Coordination (a ppointment) Start: 12-17-2022 End: 12-18-2022 ambulatory MADELAINE Batista Cristina Facility:[facility] Start: 12-17-2022 End: 12-18-2022 ambulatory Wilmer Driver APRN.PSYCH THERAPIST Work Phone: Hematology/Oncology Comment on above: 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); Chronic fatigue and malaise Start: 12-17-2022 End: 12-18-2022 Telemedicine consultation with patient Wilmer Driver APRN.PSYCH THERAPIST Work Phone: [facility] Start: 12-16-2022 Telephone encounter Pamella bernstein RN Work Phone: Hematology/Oncology Comment on above: Appointment Start: 12-08-2022 End: 12-08-2022 ambulatory Jose Najera MD Work Phone: Hematology/Oncology Comment on above: Test results Start: 12-08-2022 Telephone encounter Enma Osuna Hematology/Oncology Comment on above: Results Start: 11-22-2022 ambulatory Lynne Ni MD Work Phone: Rheumatology Comment on above: update Start: 11-19-2022 End: 11-19-2022 ambulatory MADELAINE Lynne Cristina Facility:[facility] Start: 11-19-2022 End: 11-19-2022 Nursing evaluation of patient and report Cele Marshall Work Phone: Hematology/Oncology Comment on above: 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); Elevated sed rate Start: 10-29-2022 End: 10-29-2022 ambulatory MADELAINE FERRIS Facility:[facility] Start: 10-22-2022 End: 10-22-2022 ambulatory MADELAINE FERRIS Facility:[facility] Start: 10-22-2022 End: 10-22-2022 Nursing evaluation of patient and report Cele Marshall Work Phone: Hematology/Oncology Comment on above: 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); Elevated sed rate Start: 10-22-2022 End: 10-22-2022 Office outpatient visit 15 minutes Jose Najera MD Work Phone: Hematology/Oncology Comment on above: 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); Elevated sed rate; High total serum IgM; Chronic fatigue and malaise; Obstructive sleep apnea syndrome Start: 10-15-2022 End: 10-15-2022 ambulatory MADELAINE FERRIS Facility:[facility] Start: 09-24-2022 End: 09-25-2022 ambulatory MICKY PARNELL . Facility: Start: 09-24-2022 End: 09-24-2022 ambulatory MADELAINE FERRIS Facility:[facility] Start: 09-24-2022 End: 09-24-2022 Nursing evaluation of patient and report Cele Marshall Work Phone: Hematology/Oncology Comment on above: 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); Elevated sed rate Start: 09-10-2022 End: 09-10-[address] MADELAINE FERRIS . Facility: Start: 09-08-2022 Telephone encounter Angelia Washington [facility] Home Delivery - Compliance Comment on above: Compliance Adherence Start: 09-07-2022 End: 09-07-2022 ambulatory MADELAINE FERRIS Facility:[facility] Start: 09-07-2022 End: 09-07-2022 Office outpatient visit 40 minutes Christie Phan MD Work Phone: [facility] Comment on above: Obesity, Class III, BMI >= 40 (Primary Dx); Polypharmacy; Pre-diabetes Start: 09-01-2022 End: 09-02-[address] MADELAINE FERRIS . Facility: Start: 08-29-2022 Refill Lynne Ni MD Work Phone: Rheumatology Comment on above: Refill Request Start: 08-27-2022 End: 08-27-2022 Nursing evaluation of patient and report Ne Nurse Dre Marshall Work Phone: Hematology/Oncology Comment on above: 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); Elevated sed rate Start: 08-27-2022 End: 08-27-2022 ambulatory Wilmer Driver APRN.PSYCH THERAPIST Work Phone: Hematology/Oncology Comment on above: 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); Elevated sed rate; High total serum IgM; Chronic fatigue and malaise; JOSE RAFAEL (obstructive sleep apnea) Start: 08-27-2022 End: 08-27-2022 Patient encounter procedure Wilmer Driver APRN.PSYCH THERAPIST Work Phone: [facility] Start: 08-19-2022 Telephone encounter Lynne shaw MD Work Phone: Rheumatology Comment on above: Results Start: 08-18-2022 End: 08-18-2022 ambulatory MADELAINE FERRIS Facility:[facility] Start: 08-15-2022 ambulatory Lynne Ni MD Work Phone: Rheumatology Comment on above: update Start: 08-10-2022 Refill Christie Hays Work Phone: [facility] Comment on above: Refill Request Start: 07-27-2022 End: 07-27-2022 ambulatory MADELAINE FERRIS Facility:[facility] Start: 07-27-2022 End: 07-27-2022 ambulatory Timmy Heck APRN.PSYCH THERAPIST Work Phone: Neurology Comment on above: JOSE RAFAEL (obstructive sle ep apnea) (Primary Dx) Start: 07-27-2022 End: 07-27-2022 Telemedicine consultation with patient Timmy Heck APRN.PSYCH THERAPIST Work Phone: [facility] Start: 07-24-2022 ambulatory Lynne Ni MD Work Phone: Rheumatology Comment on above: Blood work Start: 07-24-2022 Telephone encounter Jose hooker MD Work Phone: Hematology/Oncology Comment on above: Orders (Lab Orders E xpire Before Appointment) Start: 07-21-2022 ambulatory Lawanda Miranda MD Work Phone: [facility] Start: 07-21-2022 Patient encounter procedure Lawanda Miranda MD Work Phone: Neurology Comment on above: Appointment Start: 05-20-2022 End: 05-20-2022 Nursing evaluation of patient and report Ma Nurse Dre Marshall Work Phone: Hematology/Oncology Comment on above: 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); Elevated sed rate Start: 05-20-2022 End: 05-20-2022 ambulatory Jose Najera MD Work Phone: Hematology/Oncology Comment on above: High total serum IgM (Primary Dx); Elevated sed rate; Somnolence, daytime; JOSE RAFAEL (obstructive sleep apnea) Start: 05-20-2022 End: 05-20-2022 Patient encounter procedure Jose Najera MD Work Phone: [facility] Start: 05-05-2022 ambulatory Lawanda Miranda MD Work Phone: Neurology Comment on above: Cpap Start: 05-05-2022 Telephone encounter Jami WILSON [facility] Comment on above: PAP Therapy Follow U p PAP Rx Faxed ([facility]) Start: 04-24-2022 Telephone encounter Luann Carrizales v, MD Work Phone: [facility] Comment on above: Future Appointment ( Scheduling questions/concerns) Start: 04-22-2022 Telephone encounter Eliza thapa Research Coordinator [employer] Comment on above: Appointment; Care Co ordinator - Other Start: 03-31-2022 End: 04-01-[address] MADELAINE FERRIS . Facility: Start: 03-31-2022 Refill Christie Hays Work Phone: [facility] Comment on above: Refill Request Start: 03-30-2022 ambulatory Misty Nelson MD Work Phone: Allergy Comment on above: Pneumovax Start: 03-30-2022 E-mail encounter fro m caregiver Misty Nelson MD Work Phone: [facility] Start: 03-26-2022 Telephone encounter Misty boyer MD Work Phone: Allergy Comment on above: Pneumovax Start: 03-21-2022 End: 03-21-[address] EL ROSSI . Facility: Start: 03-18-2022 End: 03-18-2022 ambulatory Jose Najera MD Work Phone: Hematology/Oncology Comment on above: 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); High total serum IgM A1c Start: 03-18-2022 E-mail encounter fro m caregiver Christie Phan MD Work Phone: [facility] Start: 03-18-2022 End: 03-18-2022 Patient encounter procedure Jose Najera MD Work Phone: [facility] Start: 03-12-2022 End: 03-13-[address] MADELAINE FERRIS . Facility: Start: 03-10-2022 End: 03-10-2022 ambulatory Tiffany Adilene DO Work Phone: Infectious Disease Comment on above: results Raised level of immu noglobulins (Primary Dx); Wound healing, delayed; Current smoker Start: 03-10-2022 E-mail encounter fro m caregiver Tiffany Head Work Phone: [facility] Start: 03-10-2022 End: 03-10-2022 Telemedicine consultation with patient [facility] Start: 03-09-2022 End: 03-10-2022 ambulatory GAY ENCISO Facility:[facility] Start: 03-09-2022 End: 03-09-2022 Office consultation new/estab patient 80 min Christie Phan MD Work Phone: [facility] Comment on above: Obesity, Class II, B OK 35-39.9 (Primary Dx); Somnolence, daytime; Chronic fatigue and malaise; Obesity, unspecified classification, unspecified obesity type, unspecified whether serious comorbidity present; Snoring; POTS (postural orthostatic tachycardia syndrome); Elevated glucose; Raised level of immunoglobulins Start: 03-06-2022 Telephone encounter Tiffany Garcia DO Work Phone: Infectious Disease Comment on above: Opened In Error Start: 03-05-2022 ambulatory Lynne Ni MD Work Phone: Rheumatology Comment on above: results Start: 03-05-2022 Telephone encounter Lynne shaw MD Work Phone: Rheumatology Comment on above: Results Start: 03-04-2022 End: 03-04-2022 ambulatory Jose Najera MD Work Phone: Hematology/Oncology Comment on above: High total serum IgM (Primary Dx); Megaloblastic anemia due to vitamin B12 deficiency; Somnolence, daytime; Snoring; Chronic fatigue and malaise; Obesity, unspecified classification, unspecified obesity type, unspecified whether serious comorbidity present Start: 03-04-2022 End: 03-04-2022 Patient encounter procedure Jose Najera MD Work Phone: [facility] Start: 03-02-2022 Chart abstracting Jose waterman MD Work Phone: Hematology/Oncology Start: 03-02-2022 Telephone encounter Milena alas MD Work Phone: Infectious Disease Comment on above: Opened In Error Start: 02-24-2022 End: 02-24-2022 ambulatory Tiffany Head DO Work Phone: Infectious Disease Comment on above: Swelling of lymph no dot (Primary Dx); Other systemic lupus erythematosus with other organ involvement (HCC); On prednisone therapy; Hair loss; Bilateral sacroiliitis (HCC); Long-term use of Plaquenil Start: 02-24-2022 End: 02-24-2022 Telemedicine consultation with patient Tiffany Head DO Work Phone: [facility] Start: 02-14-2022 End: 02-15-[address] MADELAINE FERRIS . Facility:[facility] Start: 11-26-2021 End: 11-26-2021 ambulatory Mirela Kelsey Other [employer] Other Start: 11-26-2021 Office outpatient vi sit 25 minutes Mirela Kelsey [facility] Start: 11-17-2021 End: 11-18-[address] MIRELA KELSEY Facility:[facility] Start: 10-24-2021 End: 10-24-2021 Patient encounter procedure Lynne Ni MD Work Phone: Rheumatology Comment on above: Other systemic lupus erythematosus with other organ involvement (HCC) (Primary Dx); CHRISTIAN positive; Elevated sed rate; Vitamin D deficiency; Vitamin B12 deficiency; Secondary osteoarthritis of multiple sites; Chronic bilateral low back pain with bilateral sciatica; Rash and nonspecific skin eruption; Chronic pain of toes of both feet; Hair loss; Long-term use of Plaquenil; Family history of Crohn's disease; Fibromyalgia Start: 10-15-2021 End: 10-15-2021 ambulatory Mirela Kelsey Other [employer] Other Start: 10-15-2021 Office outpatient vi sit 25 minutes Mirela LOPEZ Infectious Disease Start: 10-03-2021 End: [address] MIRELA KELSEY Facility:[facility] Start: 09-18-2021 End: 09-18-2021 ambulatory Mirela Kelsey Other [employer] Other Start: 09-18-2021 Telephone encounter Mirela Kelsey [facility] Start: 09-11-2021 End: 09-11-2021 ambulatory Mirela Kelsey Other [facility] Other Start: 09-11-2021 Office outpatient ne w 45 minutes Mirela Kelsey [facility] Start: 10-07-2020 End: 10-08-2020 ambulatory JAREN HOLLEY [facility] Start: 10-07-2020 End: 10-07-2020 Subsequent hospital visit by physician [facility] Pull[facility] Rm Al [facility] Last Puller Comment on above: Arrived Start: 09-17-2018 End: 09-17-2018 Patient encounter procedure Bettina Jiménez Facility[facility] Start: 09-14-2018 End: 09-17-2018 Patient encounter procedure VICTOR MANUEL Batista THOMAS [facility] Procedures Date Procedure Procedure Detail Performing Clinician Start: 06-09-2023 ECG 12-LEAD MICHELLE [place] Start: 06-09-2023 Ecg routine ecg w/le ast 12 lds w/i&r Michelle Britton MANAGER COUNTRY-[employer]YCH THERAPIST Work Phone: Start: 10-07-2020 End: 10-07-2020 Cardiac catheterization Jaren Holley MD Work Phone: Start: 10-07-2020 Chloride [Moles/volu me] in Serum or Plasma Jaren Holley MD Work Phone: Start: 10-07-2020 CREATININE W/GFR POI NT OF CARE Jaren Holley MD Work Phone: Start: 10-07-2020 End: 10-07-2020 Gluc bld gluc mntr dev cleared fda spec home use Jaren Holley MD Work Phone: Start: 10-07-2020 Potassium [Moles/vol ume] in Serum or Plasma Jaren Holley MD Work Phone: Start: 10-07-2020 Sodium [Moles/volume ] in Serum or Plasma Jaren Holley MD Work Phone: Start: 10-07-2020 Urine test visual color cmprsn meths Jaren Holley MD Work Phone: Start: 09-14-2018 Radex foot complete minimum 3 views VICTOR MANUEL GUZMAN Plan of Treatment Date Care Activity Detail Author Start: 03-17-2025 Diabetes mellitus screening Diabetes Screening [facility] Start: 07-19-2023 End: 07-19-2023 Patient encounter procedure 07/19/2023 9:15 AM EST Office Visit [facility] [address] [place] [id number] Aurora Patel MD [address] [facility] [address] [place] [address] [facility] Start: 06-09-2023 End: 06-09-2024 Holter monitor study Holter Or Event Blood Bank Credit Clerk Cardiac Services Routine Irregular heart rate Expected: 06/09/2023 (Approximate), Expires: 06/09/2024 [facility] Work Phone: Comment on above: Expected: 06/09/2023 (Approximate), Expires: 06/09/2024 Start: 06-09-2023 End: 06-09-2024 Lipid 1996 panel - Serum or Plasma Lipid Panel Lab Routine Primary hypertension Expected: 06/09/2023 (Approximate), Expires: 06/09/2024 [facility] Work Phone: Comment on above: Expected: 06/09/2023 (Approximate), Expires: 06/09/2024 Start: 06-09-2023 End: 06-09-2024 Thyrotropin [Units/volume] in Serum or Plasma Thyroid Stimulating Hormone Lab Routine Irregular heart rate Expected: 06/09/2023 (Approximate), Expires: 06/09/2024 [facility] Work Phone: Comment on above: Expected: 06/09/2023 (Approximate), Expires: 06/09/2024 Start: 06-09-2023 End: 06-09-2024 Thyroxine (T4) free [Mass/volume] in Serum or Plasma Thyroxine, Free Lab Routine Irregular heart rate Expected: 06/09/2023 (Approximate), Expires: 06/09/2024 [facility] Work Phone: Comment on above: Expected: 06/09/2023 (Approximate), Expires: 06/09/2024 Start: 06-09-2023 End: 06-09-2025 US Heart Transthoracic Transthoracic Echo (TTE) Complete Echocardiography Routine Irregular heart rate Obstructive sleep apnea syndrome Expected: 06/09/2023 (Approximate), Expires: 06/09/2025 [facility] Service Area Work Phone: Comment on above: Expected: 06/09/2023 (Approximate), Expires: 06/09/2025 Start: 04-25-2023 End: 01-25-2024 25-hydroxyvitamin D3 [Mass/volume] in Serum or Plasma VITAMIN D 25 HYDROXY Lab Routine Vitamin D deficiency Expected: 04/25/2023 (Approximate), Expires: 01/25/2024 [facility] Work Phone: Comment on above: Expected: 04/25/2023 (Approximate), Expires: 01/25/2024 Start: 04-25-2023 End: 01-25-2024 C reactive protein [Mass/volume] in Serum or Plasma C-REACTIVE PROTEIN (CRP) Lab Routine Elevated sed rate Elevated C-reactive protein (CRP) Expected: 04/25/2023 (Approximate), Expires: 01/25/2024 [facility] Work Phone: Comment on above: Expected: 04/25/2023 (Approximate), Expires: 01/25/2024 Start: 04-25-2023 End: 01-25-2024 CBC panel - Blood by Automated count CBC Lab Routine Anemia of chronic disease Expected: 04/25/2023 (Approximate), Expires: 01/25/2024 [facility] Work Phone: Comment on above: Expected: 04/25/2023 (Approximate), Expires: 01/25/2024 Start: 04-25-2023 End: 01-25-2024 Comprehensive metabolic 2000 panel - Serum or Plasma COMP METABOLIC PANEL Lab Routine Elevated LFTs Expected: 04/25/2023 (Approximate), Expires: 01/25/2024 [facility] Work Phone: Comment on above: Expected: 04/25/2023 (Approximate), Expires: 01/25/2024 Start: 04-25-2023 End: 01-25-2024 Erythrocyte sedimentation rate SED RATE WESTERGREN Lab Routine Elevated sed rate Elevated C-reactive protein (CRP) Expected: 04/25/2023 (Approximate), Expires: 01/25/2024 [facility] Work Phone: Comment on above: Expected: 04/25/2023 (Approximate), Expires: 01/25/2024 Start: 04-20-2023 COVID-19 Vaccine (4 - Pfizer risk series) COVID-19 Vaccine (4 - Pfizer risk series) [facility] Start: 04-20-2023 Covid-19 Vaccine () Covid-19 Vaccine () [facility] Start: 04-20-2023 Covid-19 Vaccine () Covid-19 Vaccine () [facility] Start: 04-16-2023 End: 02-20-2024 CBC W Auto Differential panel - Blood CBC + DIFF Lab Routine Megaloblastic anemia due to vitamin B12 deficiency Elevated sed rate Chronic fatigue and malaise High total serum IgM JOSE RAFAEL (obstructive sleep apnea) Expected: 04/16/2023 (Approximate), Expires: 02/20/2024 [facility] Work Phone: Comment on above: Expected: 04/16/2023 (Approximate), Expires: 02/20/2024 Start: 04-16-2023 End: 02-20-2024 Cobalamin (Vitamin B12) [Mass/volume] in Serum or Plasma VITAMIN B12 BLOOD Lab Routine Megaloblastic anemia due to vitamin B12 deficiency Elevated sed rate Chronic fatigue and malaise High total serum IgM JOSE RAFAEL (obstructive sleep apnea) Expected: 04/16/2023 (Approximate), Expires: 02/20/2024 [facility] Work Phone: Comment on above: Expected: 04/16/2023 (Approximate), Expires: 02/20/2024 Start: 04-16-2023 End: 02-20-2024 Comprehensive metabolic 2000 panel - Serum or Plasma COMP METABOLIC PANEL Lab Routine Megaloblastic anemia due to vitamin B12 deficiency Elevated sed rate Chronic fatigue and malaise High total serum IgM JOSE RAFAEL (obstructive sleep apnea) Expected: 04/16/2023 (Approximate), Expires: 02/20/2024 [facility] Work Phone: Comment on above: Expected: 04/16/2023 (Approximate), Expires: 02/20/2024 Start: 04-16-2023 End: 02-20-2024 Ferritin [Mass/volume] in Serum or Plasma FERRITIN BLD Lab Routine Megaloblastic anemia due to vitamin B12 deficiency Elevated sed rate Chronic fatigue and malaise High total serum IgM JOSE RAFAEL (obstructive sleep apnea) Expected: 04/16/2023 (Approximate), Expires: 02/20/2024 [facility] Work Phone: Comment on above: Expected: 04/16/2023 (Approximate), Expires: 02/20/2024 Start: 04-16-2023 End: 02-20-2024 Folate [Mass/volume] in Serum or Plasma FOLATE SERUM Lab Routine Megaloblastic anemia due to vitamin B12 deficiency Elevated sed rate Chronic fatigue and malaise High total serum IgM JOSE RAFAEL (obstructive sleep apnea) Expected: 04/16/2023 (Approximate), Expires: 02/20/2024 [facility] Work Phone: Comment on above: Expected: 04/16/2023 (Approximate), Expires: 02/20/2024 Start: 04-16-2023 End: 02-20-2024 Iron and Iron binding capacity panel - Serum or Plasma IRON + TIBC Lab Routine Megaloblastic anemia due to vitamin B12 deficiency Elevated sed rate Chronic fatigue and malaise High total serum IgM JOSE RAFAEL (obstructive sleep apnea) Expected: 04/16/2023 (Approximate), Expires: 02/20/2024 [facility] Work Phone: Comment on above: Expected: 04/16/2023 (Approximate), Expires: 02/20/2024 Start: 03-10-2023 End: 06-09-2023 Insulin [Units/volume] in Serum or Plasma INSULIN ASSAY BLOOD Lab Routine Insulin resistance, unspecified Expected: 03/10/2023, Expires: 06/09/2023 [facility] Work Phone: Comment on above: Expected: 03/10/2023 , Expires: 06/09/2023 Start: 03-10-2023 End: 06-09-2023 INSULIN ANTIBODY BLD INSULIN ANTIBODY BLD Lab Routine Insulin resistance, unspecified Expected: 03/10/2023, Expires: 06/09/2023 [facility] Work Phone: Comment on above: Expected: 03/10/2023 , Expires: 06/09/2023 Start: 02-11-2023 End: 02-08-2024 [id number] [Mass/volume] in Serum or Plasma B2 MICROGLOBULIN B Lab Routine Megaloblastic anemia due to vitamin B12 deficiency High total serum IgM Elevated sed rate Expected: 02/11/2023 (Approximate), Expires: 02/08/2024 [facility] Work Phone: Comment on above: Expected: 02/11/2023 (Approximate), Expires: 02/08/2024 Start: 02-11-2023 End: 02-08-2024 Calcium.ionized [Moles/volume] in Blood CALCIUM IONIZED BLOOD Lab Routine Megaloblastic anemia due to vitamin B12 deficiency High total serum IgM Elevated sed rate Expected: 02/11/2023 (Approximate), Expires: 02/08/2024 [facility] Work Phone: Comment on above: Expected: 02/11/2023 (Approximate), Expires: 02/08/2024 Start: 02-11-2023 End: 02-08-2024 CBC W Auto Differential panel - Blood CBC + DIFF Lab Routine Megaloblastic anemia due to vitamin B12 deficiency High total serum IgM Elevated sed rate Expected: 02/11/2023 (Approximate), Expires: 02/08/2024 [facility] Work Phone: Comment on above: Expected: 02/11/2023 (Approximate), Expires: 02/08/2024 Start: 02-11-2023 End: 02-08-2024 Cobalamin (Vitamin B12) [Mass/volume] in Serum or Plasma VITAMIN B12 BLOOD Lab Routine Megaloblastic anemia due to vitamin B12 deficiency High total serum IgM Elevated sed rate Expected: 02/11/2023 (Approximate), Expires: 02/08/2024 [facility] Work Phone: Comment on above: Expected: 02/11/2023 (Approximate), Expires: 02/08/2024 Start: 02-11-2023 End: 02-08-2024 Comprehensive metabolic 2000 panel - Serum or Plasma COMP METABOLIC PANEL Lab Routine Megaloblastic anemia due to vitamin B12 deficiency High total serum IgM Elevated sed rate Expected: 02/11/2023 (Approximate), Expires: 02/08/2024 [facility] Work Phone: Comment on above: Expected: 02/11/2023 (Approximate), Expires: 02/08/2024 Start: 02-11-2023 End: 02-08-2024 Ferritin [Mass/volume] in Serum or Plasma FERRITIN BLD Lab Routine Megaloblastic anemia due to vitamin B12 deficiency High total serum IgM Elevated sed rate Expected: 02/11/2023 (Approximate), Expires: 02/08/2024 [facility] Work Phone: Comment on above: Expected: 02/11/2023 (Approximate), Expires: 02/08/2024 Start: 02-11-2023 End: 02-08-2024 Folate [Mass/volume] in Serum or Plasma FOLATE SERUM Lab Routine Megaloblastic anemia due to vitamin B12 deficiency High total serum IgM Elevated sed rate Expected: 02/11/2023 (Approximate), Expires: 02/08/2024 [facility] Work Phone: Comment on above: Expected: 02/11/2023 (Approximate), Expires: 02/08/2024 Start: 02-11-2023 End: 02-08-2024 Iron and Iron binding capacity panel - Serum or Plasma IRON + TIBC Lab Routine Megaloblastic anemia due to vitamin B12 deficiency High total serum IgM Elevated sed rate Expected: 02/11/2023 (Approximate), Expires: 02/08/2024 [facility] Work Phone: Comment on above: Expected: 02/11/2023 (Approximate), Expires: 02/08/2024 Start: 02-11-2023 End: 04-13-2023 KAPPA/FARMER,FREE,SER KAPPA/FARMER,FREE,SER Lab Routine Megaloblastic anemia due to vitamin B12 deficiency High total serum IgM Elevated sed rate Expected: 02/11/2023 (Approximate), Expires: 04/13/2023 [facility] Work Phone: Comment on above: Expected: 02/11/2023 (Approximate), Expires: 04/13/2023 Start: 02-11-2023 End: 02-08-2024 Lactate dehydrogenase [Enzymatic activity/volume] in Serum or Plasma LD LACTATE DEHYDRO Lab Routine Megaloblastic anemia due to vitamin B12 deficiency High total serum IgM Elevated sed rate Expected: 02/11/2023 (Approximate), Expires: 02/08/2024 [facility] Work Phone: Comment on above: Expected: 02/11/2023 (Approximate), Expires: 02/08/2024 Start: 02-11-2023 End: 02-08-2024 MONOCLONAL PROTEIN, SERUM (BLOOD) MONOCLONAL PROTEIN, SERUM (BLOOD) Lab Routine Megaloblastic anemia due to vitamin B12 deficiency High total serum IgM Elevated sed rate Expected: 02/11/2023 (Approximate), Expires: 02/08/2024 [facility] Work Phone: Comment on above: Expected: 02/11/2023 (Approximate), Expires: 02/08/2024 Start: 02-11-2023 End: 02-08-2024 Phosphate [Mass/volume] in Serum or Plasma PHOSPHORUS INORGANIC Lab Routine Megaloblastic anemia due to vitamin B12 deficiency High total serum IgM Elevated sed rate Expected: 02/11/2023 (Approximate), Expires: 02/08/2024 [facility] Work Phone: Comment on above: Expected: 02/11/2023 (Approximate), Expires: 02/08/2024 Start: 02-11-2023 End: 02-08-2024 PROTEIN ELECTROPHORESIS SERUM W/INTERP PROTEIN ELECTROPHORESIS SERUM W/INTERP Lab Routine Megaloblastic anemia due to vitamin B12 deficiency High total serum IgM Elevated sed rate Expected: 02/11/2023 (Approximate), Expires: 02/08/2024 [facility] Work Phone: Comment on above: Expected: 02/11/2023 (Approximate), Expires: 02/08/2024 Start: 02-11-2023 End: 02-08-2024 Urate [Mass/volume] in Serum or Plasma URIC ACID BLOOD Lab Routine Megaloblastic anemia due to vitamin B12 deficiency High total serum IgM Elevated sed rate Expected: 02/11/2023 (Approximate), Expires: 02/08/2024 [facility] Work Phone: Comment on above: Expected: 02/11/2023 (Approximate), Expires: 02/08/2024 Start: 01-22-2023 Influenza vaccination C [facility] Start: 12-17-2022 End: 10-23-2023 CBC W Auto Differential panel - Blood CBC + DIFF Lab Routine Megaloblastic anemia due to vitamin B12 deficiency Expected: 12/17/2022 (Approximate), Expires: 10/23/2023 [facility] Work Phone: Comment on above: Expected: 12/17/2022 (Approximate), Expires: 10/23/2023 Start: 12-17-2022 End: 10-23-2023 Cobalamin (Vitamin B12) [Mass/volume] in Serum or Plasma VITAMIN B12 BLOOD Lab Routine Megaloblastic anemia due to vitamin B12 deficiency Expected: 12/17/2022 (Approximate), Expires: 10/23/2023 [facility] Work Phone: Comment on above: Expected: 12/17/2022 (Approximate), Expires: 10/23/2023 Start: 12-17-2022 End: 10-23-2023 Comprehensive metabolic 2000 panel - Serum or Plasma COMP METABOLIC PANEL Lab Routine Megaloblastic anemia due to vitamin B12 deficiency Expected: 12/17/2022 (Approximate), Expires: 10/23/2023 [facility] Work Phone: Comment on above: Expected: 12/17/2022 (Approximate), Expires: 10/23/2023 Start: 12-17-2022 End: 10-23-2023 Ferritin [Mass/volume] in Serum or Plasma FERRITIN BLD Lab Routine Megaloblastic anemia due to vitamin B12 deficiency Expected: 12/17/2022 (Approximate), Expires: 10/23/2023 [facility] Work Phone: Comment on above: Expected: 12/17/2022 (Approximate), Expires: 10/23/2023 Start: 12-17-2022 End: 10-23-2023 Folate [Mass/volume] in Serum or Plasma FOLATE SERUM Lab Routine Megaloblastic anemia due to vitamin B12 deficiency Expected: 12/17/2022 (Approximate), Expires: 10/23/2023 [facility] Work Phone: Comment on above: Expected: 12/17/2022 (Approximate), Expires: 10/23/2023 Start: 12-17-2022 End: 10-23-2023 Iron and Iron binding capacity panel - Serum or Plasma IRON + TIBC Lab Routine Megaloblastic anemia due to vitamin B12 deficiency Expected: 12/17/2022 (Approximate), Expires: 10/23/2023 [facility] Work Phone: Comment on above: Expected: 12/17/2022 (Approximate), Expires: 10/23/2023 Start: 10-23-2022 End: 12-23-2022 25-hydroxyvitamin D3 [Mass/volume] in Serum or Plasma VITAMIN D 25 HYDROXY Lab Routine Megaloblastic anemia due to vitamin B12 deficiency Elevated sed rate High total serum IgM Chronic fatigue and malaise JOSE RAFAEL (obstructive sleep apnea) Expected: 10/23/2022, Expires: 12/23/2022 [facility] Work Phone: Comment on above: Expected: 10/23/2022 , Expires: 12/23/2022 Start: 10-23-2022 End: 12-23-2022 C reactive protein [Mass/volume] in Serum or Plasma C-REACTIVE PROTEIN (CRP) Lab Routine Megaloblastic anemia due to vitamin B12 deficiency Elevated sed rate High total serum IgM Chronic fatigue and malaise JOSE RAFAEL (obstructive sleep apnea) Expected: 10/23/2022, Expires: 12/23/2022 [facility] Work Phone: Comment on above: Expected: 10/23/2022 , Expires: 12/23/2022 Start: 10-23-2022 End: 12-23-2022 CBC W Auto Differential panel - Blood CBC + DIFF Lab Routine Megaloblastic anemia due to vitamin B12 deficiency Elevated sed rate High total serum IgM Chronic fatigue and malaise JOSE RAFAEL (obstructive sleep apnea) Expected: 10/23/2022, Expires: 12/23/2022 [facility] Work Phone: Comment on above: Expected: 10/23/2022 , Expires: 12/23/2022 Start: 10-23-2022 End: 12-23-2022 Cobalamin (Vitamin B12) [Mass/volume] in Serum or Plasma VITAMIN B12 BLOOD Lab Routine Megaloblastic anemia due to vitamin B12 deficiency Elevated sed rate High total serum IgM Chronic fatigue and malaise JOSE RAFAEL (obstructive sleep apnea) Expected: 10/23/2022, Expires: 12/23/2022 [facility] Work Phone: Comment on above: Expected: 10/23/2022 , Expires: 12/23/2022 Start: 10-23-2022 End: 12-23-2022 Comprehensive metabolic 2000 panel - Serum or Plasma COMP METABOLIC PANEL Lab Routine Megaloblastic anemia due to vitamin B12 deficiency Elevated sed rate High total serum IgM Chronic fatigue and malaise JOSE RAFAEL (obstructive sleep apnea) Expected: 10/23/2022, Expires: 12/23/2022 [facility] Work Phone: Comment on above: Expected: 10/23/2022 , Expires: 12/23/2022 Start: 10-23-2022 End: 12-23-2022 Erythrocyte sedimentation rate SED RATE WESTERGREN Lab Routine Megaloblastic anemia due to vitamin B12 deficiency Elevated sed rate High total serum IgM Chronic fatigue and malaise JOSE RAFAEL (obstructive sleep apnea) Expected: 10/23/2022, Expires: 12/23/2022 [facility] Work Phone: Comment on above: Expected: 10/23/2022 , Expires: 12/23/2022 Start: 10-23-2022 End: 12-23-2022 Lactate dehydrogenase [Enzymatic activity/volume] in Serum or Plasma LD LACTATE DEHYDRO Lab Routine Megaloblastic anemia due to vitamin B12 deficiency Elevated sed rate High total serum IgM Chronic fatigue and malaise JOSE RAFAEL (obstructive sleep apnea) Expected: 10/23/2022, Expires: 12/23/2022 [facility] Work Phone: Comment on above: Expected: 10/23/2022 , Expires: 12/23/2022 Start: 10-23-2022 End: 12-23-2022 MONOCLONAL PROTEIN, SERUM (BLOOD) MONOCLONAL PROTEIN, SERUM (BLOOD) Lab Routine Megaloblastic anemia due to vitamin B12 deficiency Elevated sed rate High total serum IgM Chronic fatigue and malaise JOSE RAFAEL (obstructive sleep apnea) Expected: 10/23/2022, Expires: 12/23/2022 [facility] Work Phone: Comment on above: Expected: 10/23/2022 , Expires: 12/23/2022 Start: 10-23-2022 End: 12-23-2022 PROT ELECT SERUM WITH DANA AND INTERP PROT ELECT SERUM WITH DANA AND INTERP Lab Routine Megaloblastic anemia due to vitamin B12 deficiency Elevated sed rate High total serum IgM Chronic fatigue and malaise JOSE RAFAEL (obstructive sleep apnea) Expected: 10/23/2022, Expires: 12/23/2022 [facility] Work Phone: Comment on above: Expected: 10/23/2022 , Expires: 12/23/2022 Start: 09-19-2022 End: 08-20-2023 CBC panel - Blood by Automated count CBC Lab Routine Anemia of chronic disease Expected: 09/19/2022 (Approximate), Expires: 08/20/2023 [facility] Work Phone: Comment on above: Expected: 09/19/2022 (Approximate), Expires: 08/20/2023 Start: 09-19-2022 End: 08-20-2023 Comprehensive metabolic 2000 panel - Serum or Plasma COMP METABOLIC PANEL Lab Routine Elevated LFTs Expected: 09/19/2022 (Approximate), Expires: 08/20/2023 [facility] Work Phone: Comment on above: Expected: 09/19/2022 (Approximate), Expires: 08/20/2023 Start: 09-19-2022 End: 11-19-2022 TPMT PHENOTYPE/ENZYME ACTIVITY TPMT PHENOTYPE/ENZYME ACTIVITY Lab Routine 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 senior living 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 Expected: 09/19/2022 (Approximate), Expires: 11/19/2022 [facility] Work Phone: Comment on above: Expected: 09/19/2022 (Approximate), Expires: 11/19/2022 Start: 08-28-2022 End: 10-28-2022 25-hydroxyvitamin D3 [Mass/volume] in Serum or Plasma VITAMIN D 25 HYDROXY Lab Routine Megaloblastic anemia due to vitamin B12 deficiency Elevated sed rate High total serum IgM Chronic fatigue and malaise Expected: 08/28/2022 (Approximate), Expires: 10/28/2022 [facility] Work Phone: Comment on above: Expected: 08/28/2022 (Approximate), Expires: 10/28/2022 Start: 08-28-2022 End: 07-26-2023 [id number] [Mass/volume] in Serum or Plasma B2 MICROGLOBULIN B Lab Routine Megaloblastic anemia due to vitamin B12 deficiency Elevated sed rate High total serum IgM Chronic fatigue and malaise Expected: 08/28/2022 (Approximate), Expires: 07/26/2023 [facility] Work Phone: Comment on above: Expected: 08/28/2022 (Approximate), Expires: 07/26/2023 Start: 08-28-2022 End: 10-28-2022 C reactive protein [Mass/volume] in Serum or Plasma C-REACTIVE PROTEIN (CRP) Lab Routine Megaloblastic anemia due to vitamin B12 deficiency Elevated sed rate High total serum IgM Chronic fatigue and malaise Expected: 08/28/2022 (Approximate), Expires: 10/28/2022 [facility] Work Phone: Comment on above: Expected: 08/28/2022 (Approximate), Expires: 10/28/2022 Start: 08-28-2022 End: 07-26-2023 Calcium.ionized [Moles/volume] in Blood CALCIUM IONIZED BLOOD Lab Routine Megaloblastic anemia due to vitamin B12 deficiency Elevated sed rate High total serum IgM Chronic fatigue and malaise Expected: 08/28/2022 (Approximate), Expires: 07/26/2023 [facility] Work Phone: Comment on above: Expected: 08/28/2022 (Approximate), Expires: 07/26/2023 Start: 08-28-2022 End: 07-26-2023 CBC W Auto Differential panel - Blood CBC + DIFF Lab Routine Megaloblastic anemia due to vitamin B12 deficiency Elevated sed rate High total serum IgM Chronic fatigue and malaise Expected: 08/28/2022 (Approximate), Expires: 07/26/2023 [facility] Work Phone: Comment on above: Expected: 08/28/2022 (Approximate), Expires: 07/26/2023 Start: 08-28-2022 End: 10-28-2022 Cobalamin (Vitamin B12) [Mass/volume] in Serum or Plasma VITAMIN B12 BLOOD Lab Routine Megaloblastic anemia due to vitamin B12 deficiency Elevated sed rate High total serum IgM Chronic fatigue and malaise Expected: 08/28/2022 (Approximate), Expires: 10/28/2022 [facility] Work Phone: Comment on above: Expected: 08/28/2022 (Approximate), Expires: 10/28/2022 Start: 08-28-2022 End: 07-26-2023 Comprehensive metabolic 2000 panel - Serum or Plasma COMP METABOLIC PANEL Lab Routine Megaloblastic anemia due to vitamin B12 deficiency Elevated sed rate High total serum IgM Chronic fatigue and malaise Expected: 08/28/2022 (Approximate), Expires: 07/26/2023 [facility] Work Phone: Comment on above: Expected: 08/28/2022 (Approximate), Expires: 07/26/2023 Start: 08-28-2022 End: 10-28-2022 Erythrocyte sedimentation rate SED RATE WESTERGREN Lab Routine Megaloblastic anemia due to vitamin B12 deficiency Elevated sed rate High total serum IgM Chronic fatigue and malaise Expected: 08/28/2022 (Approximate), Expires: 10/28/2022 [facility] Work Phone: Comment on above: Expected: 08/28/2022 (Approximate), Expires: 10/28/2022 Start: 08-28-2022 End: 10-28-2022 KAPPA/FARMER,FREE,SER KAPPA/FARMER,FREE,SER Lab Routine Megaloblastic anemia due to vitamin B12 deficiency Elevated sed rate High total serum IgM Chronic fatigue and malaise Expected: 08/28/2022 (Approximate), Expires: 10/28/2022 [facility] Work Phone: Comment on above: Expected: 08/28/2022 (Approximate), Expires: 10/28/2022 Start: 08-28-2022 End: 07-26-2023 Lactate dehydrogenase [Enzymatic activity/volume] in Serum or Plasma LD LACTATE DEHYDRO Lab Routine Megaloblastic anemia due to vitamin B12 deficiency Elevated sed rate High total serum IgM Chronic fatigue and malaise Expected: 08/28/2022 (Approximate), Expires: 07/26/2023 [facility] Work Phone: Comment on above: Expected: 08/28/2022 (Approximate), Expires: 07/26/2023 Start: 08-28-2022 End: 07-26-2023 MONOCLONAL PROTEIN, SERUM (BLOOD) MONOCLONAL PROTEIN, SERUM (BLOOD) Lab Routine Megaloblastic anemia due to vitamin B12 deficiency Elevated sed rate High total serum IgM Chronic fatigue and malaise Expected: 08/28/2022 (Approximate), Expires: 07/26/2023 [facility] Work Phone: Comment on above: Expected: 08/28/2022 (Approximate), Expires: 07/26/2023 Start: 08-28-2022 End: 07-26-2023 Phosphate [Mass/volume] in Serum or Plasma PHOSPHORUS INORGANIC Lab Routine Megaloblastic anemia due to vitamin B12 deficiency Elevated sed rate High total serum IgM Chronic fatigue and malaise Expected: 08/28/2022 (Approximate), Expires: 07/26/2023 [facility] Work Phone: Comment on above: Expected: 08/28/2022 (Approximate), Expires: 07/26/2023 Start: 08-28-2022 End: 07-26-2023 PROTEIN ELECTROPHORESIS SERUM W/INTERP PROTEIN ELECTROPHORESIS SERUM W/INTERP Lab Routine Megaloblastic anemia due to vitamin B12 deficiency Elevated sed rate High total serum IgM Chronic fatigue and malaise Expected: 08/28/2022 (Approximate), Expires: 07/26/2023 [facility] Work Phone: Comment on above: Expected: 08/28/2022 (Approximate), Expires: 07/26/2023 Start: 08-28-2022 End: 07-26-2023 Urate [Mass/volume] in Serum or Plasma URIC ACID BLOOD Lab Routine Megaloblastic anemia due to vitamin B12 deficiency Elevated sed rate High total serum IgM Chronic fatigue and malaise Expected: 08/28/2022 (Approximate), Expires: 07/26/2023 [facility] Work Phone: Comment on above: Expected: 08/28/2022 (Approximate), Expires: 07/26/2023 Start: 07-15-2022 End: 05-20-2023 [id number] [Mass/volume] in Serum or Plasma B2 MICROGLOBULIN B Lab Routine High total serum IgM Expected: 07/15/2022 (Approximate), Expires: 05/20/2023 [facility] Work Phone: Comment on above: Expected: 07/15/2022 (Approximate), Expires: 05/20/2023 Start: 07-15-2022 End: 05-20-2023 Calcium.ionized [Moles/volume] in Blood CALCIUM IONIZED BLOOD Lab Routine High total serum IgM Expected: 07/15/2022 (Approximate), Expires: 05/20/2023 [facility] Work Phone: Comment on above: Expected: 07/15/2022 (Approximate), Expires: 05/20/2023 Start: 07-15-2022 End: 05-20-2023 CBC W Auto Differential panel - Blood CBC + DIFF Lab Routine High total serum IgM Expected: 07/15/2022 (Approximate), Expires: 05/20/2023 [facility] Work Phone: Comment on above: Expected: 07/15/2022 (Approximate), Expires: 05/20/2023 Start: 07-15-2022 End: 05-20-2023 Comprehensive metabolic 2000 panel - Serum or Plasma COMP METABOLIC PANEL Lab Routine High total serum IgM Expected: 07/15/2022 (Approximate), Expires: 05/20/2023 [facility] Work Phone: Comment on above: Expected: 07/15/2022 (Approximate), Expires: 05/20/2023 Start: 07-15-2022 End: 09-14-2022 KAPPA/FARMER,FREE,SER KAPPA/FARMER,FREE,SER Lab Routine High total serum IgM Expected: 07/15/2022 (Approximate), Expires: 09/14/2022 [facility] Work Phone: Comment on above: Expected: 07/15/2022 (Approximate), Expires: 09/14/2022 Start: 07-15-2022 End: 05-20-2023 Lactate dehydrogenase [Enzymatic activity/volume] in Serum or Plasma LD LACTATE DEHYDRO Lab Routine High total serum IgM Expected: 07/15/2022 (Approximate), Expires: 05/20/2023 [facility] Work Phone: Comment on above: Expected: 07/15/2022 (Approximate), Expires: 05/20/2023 Start: 07-15-2022 End: 05-20-2023 MONOCLONAL PROTEIN, SERUM (BLOOD) MONOCLONAL PROTEIN, SERUM (BLOOD) Lab Routine High total serum IgM Expected: 07/15/2022 (Approximate), Expires: 05/20/2023 [facility] Work Phone: Comment on above: Expected: 07/15/2022 (Approximate), Expires: 05/20/2023 Start: 07-15-2022 End: 05-20-2023 Phosphate [Mass/volume] in Serum or Plasma PHOSPHORUS INORGANIC Lab Routine High total serum IgM Expected: 07/15/2022 (Approximate), Expires: 05/20/2023 [facility] Work Phone: Comment on above: Expected: 07/15/2022 (Approximate), Expires: 05/20/2023 Start: 07-15-2022 End: 05-20-2023 PROTEIN ELECTROPHORESIS SERUM W/INTERP PROTEIN ELECTROPHORESIS SERUM W/INTERP Lab Routine High total serum IgM Expected: 07/15/2022 (Approximate), Expires: 05/20/2023 [facility] Work Phone: Comment on above: Expected: 07/15/2022 (Approximate), Expires: 05/20/2023 Start: 07-15-2022 End: 05-20-2023 Urate [Mass/volume] in Serum or Plasma URIC ACID BLOOD Lab Routine High total serum IgM Expected: 07/15/2022 (Approximate), Expires: 05/20/2023 [facility] Work Phone: Comment on above: Expected: 07/15/2022 (Approximate), Expires: 05/20/2023 Start: 06-05-2022 End: 03-05-2023 25-hydroxyvitamin D3 [Mass/volume] in Serum or Plasma VITAMIN D 25 HYDROXY Lab Routine Vitamin D deficiency Expected: 06/05/2022 (Approximate), Expires: 03/05/2023 [facility] Work Phone: Comment on above: Expected: 06/05/2022 (Approximate), Expires: 03/05/2023 Start: 06-05-2022 End: 03-05-2023 C reactive protein [Mass/volume] in Serum or Plasma C-REACTIVE PROTEIN (CRP) Lab Routine Elevated sed rate Elevated C-reactive protein (CRP) Expected: 06/05/2022 (Approximate), Expires: 03/05/2023 [facility] Work Phone: Comment on above: Expected: 06/05/2022 (Approximate), Expires: 03/05/2023 Start: 06-05-2022 End: 03-05-2023 Cobalamin (Vitamin B12) [Mass/volume] in Serum or Plasma VITAMIN B12 BLOOD Lab Routine Vitamin B12 deficiency Expected: 06/05/2022 (Approximate), Expires: 03/05/2023 [facility] Work Phone: Comment on above: Expected: 06/05/2022 (Approximate), Expires: 03/05/2023 Start: 06-05-2022 End: 03-05-2023 Erythrocyte sedimentation rate SED RATE WESTERGREN Lab Routine Elevated sed rate Elevated C-reactive protein (CRP) Expected: 06/05/2022 (Approximate), Expires: 03/05/2023 [facility] Work Phone: Comment on above: Expected: 06/05/2022 (Approximate), Expires: 03/05/2023 Start: 05-06-2022 End: 03-18-2023 [id number] [Mass/volume] in Serum or Plasma B2 MICROGLOBULIN B Lab Routine Megaloblastic anemia due to vitamin B12 deficiency High total serum IgM Expected: 05/06/2022 (Approximate), Expires: 03/18/2023 [facility] Work Phone: Comment on above: Expected: 05/06/2022 (Approximate), Expires: 03/18/2023 Start: 05-06-2022 End: 03-18-2023 Calcium.ionized [Moles/volume] in Blood CALCIUM IONIZED BLOOD Lab Routine Megaloblastic anemia due to vitamin B12 deficiency High total serum IgM Expected: 05/06/2022 (Approximate), Expires: 03/18/2023 [facility] Work Phone: Comment on above: Expected: 05/06/2022 (Approximate), Expires: 03/18/2023 Start: 05-06-2022 End: 03-18-2023 CBC W Auto Differential panel - Blood CBC + DIFF Lab Routine Megaloblastic anemia due to vitamin B12 deficiency High total serum IgM Expected: 05/06/2022 (Approximate), Expires: 03/18/2023 [facility] Work Phone: Comment on above: Expected: 05/06/2022 (Approximate), Expires: 03/18/2023 Start: 05-06-2022 End: 03-18-2023 Comprehensive metabolic 2000 panel - Serum or Plasma COMP METABOLIC PANEL Lab Routine Megaloblastic anemia due to vitamin B12 deficiency High total serum IgM Expected: 05/06/2022 (Approximate), Expires: 03/18/2023 [facility] Work Phone: Comment on above: Expected: 05/06/2022 (Approximate), Expires: 03/18/2023 Start: 05-06-2022 End: 03-18-2023 Ferritin [Mass/volume] in Serum or Plasma FERRITIN BLD Lab Routine Megaloblastic anemia due to vitamin B12 deficiency High total serum IgM Expected: 05/06/2022 (Approximate), Expires: 03/18/2023 [facility] Work Phone: Comment on above: Expected: 05/06/2022 (Approximate), Expires: 03/18/2023 Start: 05-06-2022 End: 03-18-2023 Iron and Iron binding capacity panel - Serum or Plasma IRON + TIBC Lab Routine Megaloblastic anemia due to vitamin B12 deficiency High total serum IgM Expected: 05/06/2022 (Approximate), Expires: 03/18/2023 [facility] Work Phone: Comment on above: Expected: 05/06/2022 (Approximate), Expires: 03/18/2023 Start: 05-06-2022 End: 03-18-2023 Lactate dehydrogenase [Enzymatic activity/volume] in Serum or Plasma LD LACTATE DEHYDRO Lab Routine Megaloblastic anemia due to vitamin B12 deficiency High total serum IgM Expected: 05/06/2022 (Approximate), Expires: 03/18/2023 [facility] Work Phone: Comment on above: Expected: 05/06/2022 (Approximate), Expires: 03/18/2023 Start: 05-06-2022 End: 03-18-2023 MONOCLONAL PROTEIN, SERUM (BLOOD) MONOCLONAL PROTEIN, SERUM (BLOOD) Lab Routine Megaloblastic anemia due to vitamin B12 deficiency High total serum IgM Expected: 05/06/2022 (Approximate), Expires: 03/18/2023 [facility] Work Phone: Comment on above: Expected: 05/06/2022 (Approximate), Expires: 03/18/2023 Start: 05-06-2022 End: 03-18-2023 Phosphate [Mass/volume] in Serum or Plasma PHOSPHORUS INORGANIC Lab Routine Megaloblastic anemia due to vitamin B12 deficiency High total serum IgM Expected: 05/06/2022 (Approximate), Expires: 03/18/2023 [facility] Work Phone: Comment on above: Expected: 05/06/2022 (Approximate), Expires: 03/18/2023 Start: 05-06-2022 End: 03-18-2023 PROTEIN ELECTROPHORESIS SERUM W/INTERP PROTEIN ELECTROPHORESIS SERUM W/INTERP Lab Routine Megaloblastic anemia due to vitamin B12 deficiency High total serum IgM Expected: 05/06/2022 (Approximate), Expires: 03/18/2023 [facility] Work Phone: Comment on above: Expected: 05/06/2022 (Approximate), Expires: 03/18/2023 Start: 05-06-2022 End: 03-18-2023 Urate [Mass/volume] in Serum or Plasma URIC ACID BLOOD Lab Routine Megaloblastic anemia due to vitamin B12 deficiency High total serum IgM Expected: 05/06/2022 (Approximate), Expires: 03/18/2023 [facility] Work Phone: Comment on above: Expected: 05/06/2022 (Approximate), Expires: 03/18/2023 Start: 04-05-2022 COVID-19 VACCINE (5 - Pfizer risk series) COVID-19 VACCINE (5 - Pfizer risk series) [facility] Start: 03-09-2022 End: 05-09-2022 Hemoglobin A1c in Blood HGB A1C Lab Routine Elevated glucose Expected: 03/09/2022, Expires: 05/09/2022 [facility] Work Phone: Comment on above: Expected: 03/09/2022 , Expires: 05/09/2022 Start: 02-24-2022 End: 04-26-2022 BARTONELLA AB PANEL BARTONELLA AB PANEL Lab Routine Swelling of lymph nodes Expected: 02/24/2022, Expires: 04/26/2022 [facility] Work Phone: Comment on above: Expected: 02/24/2022 , Expires: 04/26/2022 Start: 02-24-2022 End: 04-26-2022 BRUCELLA AB TOTAL BRUCELLA AB TOTAL Lab Routine Swelling of lymph nodes Expected: 02/24/2022, Expires: 04/26/2022 [facility] Work Phone: Comment on above: Expected: 02/24/2022 , Expires: 04/26/2022 Start: 02-24-2022 End: 04-26-2022 Cryptococcus sp Ag [Presence] in Unspecified specimen by Latex agglutination CRYPTOCOCCUS AG DET Microbiology Routine Swelling of lymph nodes Expected: 02/24/2022, Expires: 04/26/2022 [facility] Work Phone: Comment on above: Expected: 02/24/2022 , Expires: 04/26/2022 Start: 02-24-2022 End: 04-26-2022 HISTOPLASMA AG URINE HISTOPLASMA AG URINE Lab Routine Swelling of lymph nodes Expected: 02/24/2022, Expires: 04/26/2022 [facility] Work Phone: Comment on above: Expected: 02/24/2022 , Expires: 04/26/2022 Start: 02-24-2022 End: 04-26-2022 HIV 1 RNA [#/volume] (viral load) in Serum or Plasma by YESSI with probe detection HIV RNA VIRAL LOAD Lab Routine Swelling of lymph nodes Expected: 02/24/2022, Expires: 04/26/2022 [facility] Work Phone: Comment on above: Expected: 02/24/2022 , Expires: 04/26/2022 Start: 02-24-2022 End: 04-26-2022 SYPHILIS TOTAL W/REFLEX SYPHILIS TOTAL W/REFLEX Lab Routine Swelling of lymph nodes Expected: 02/24/2022, Expires: 04/26/2022 [facility] Work Phone: Comment on above: Expected: 02/24/2022 , Expires: 04/26/2022 Start: 01-22-2022 Influenza vaccination C [facility] Start: 08-24-2021 COVID-19 VACCINE (4 - Booster for Pfizer series) COVID-19 VACCINE (4 - Booster for Pfizer series) [facility] Start: 01-22-2021 Influenza vaccination Flu vacc ine (Season Ended) [facility] Work Phone: Start: 2020 Lipid panel Lipid screen [facility] Work Phone: Start: 2020 Mammography [facility] Start: 2020 Screening for malign ant neoplasm of breast [facility] Start: 2010 HPV TESTING HPV TESTING [facility] Start: 2010 Screening for malign ant neoplasm of cervix HPV Testing [facility] Start: 2002 DTaP/Tdap/Td Vaccine s (1 - Tdap) DTaP/Tdap/Td Vaccines (1 - Tdap) [facility] Start: 2001 PAP TESTING PAP TESTING [facility] Start: 2001 Screening for malign ant neoplasm of cervix [facility] Start: 10-05-1999 DTaP/Tdap/Td vaccine (1 - Tdap) DTaP/Tdap/Td vaccine (1 - Tdap) [facility] Work Phone: Start: 10-05-1999 SHINGRIX VACCINE (1 of 2) SHINGRIX VACCINE (1 of 2) [facility] Start: 10-05-1999 Urine microalbumin profile [facility] Start: 10-05-1999 Zoster Vaccines (1 of 2) Zoster Vacc aston (1 of 2) [facility] Start: 1998 Hepatitis C screening Hepatitis C [facility] Start: 1998 HIV SCREENING HIV SCREENING [facility] Start: 1998 HIV screening HIV Screening [facility] Start: 10-05-1995 HIV screening HIV screen [facility] Work Phone: Start: 1992 COVID-19 Vaccine (1) COVID-19 Vaccin e (1) [facility] Phone: Start: 1986 PNEUMOCOCCAL (1 - PCV) PNEUMOCOCCAL (1 - PCV) [facility] Start: 1986 Pneumococcal vaccination [facility] Start: 1986 Pneumococcal Vaccine : Pediatrics (0 to 5 Years) and At-Risk Patients (6 to 64 Years) (1 - PCV) Pneumococcal Vaccine: Pediatrics (0 to 5 Years) and At-Risk Patients (6 to 64 Years) (1 - PCV) [facility] Start: 1981 MMR Vaccines (1 of 1 - Standard series) MMR Vaccines (1 of 1 - Standard series) [facility] Start: 1981 Varicella vaccination Varicell a Vaccines (1 of 2 - 2-dose childhood series) [facility] Start: 1981 Varicella vaccine (1 of 2 - 2-dose childhood series) Varicella vaccine (1 of 2 - 2-dose childhood series) [facility] Start: [facility] HEPATITIS B (1 of 3 - 3-dose series) HEPATITIS B (1 of 3 - 3-dose series) [facility] Start: 1980 Hepatitis B Vaccine (1 of 3 - 3-dose series) Hepatitis B Vaccine (1 of 3 - 3-dose series) [facility] Start: 1980 Hepatitis B Vaccines (1 of 3 - 3-dose series) Hepatitis B Vaccines (1 of 3 - 3-dose series) [facility] Start: 1980 Hepatitis C screening Hepatitis C sc thuy [facility] Phone: Start: 1980 HIV screening HIV Screening [facility] Start: 1980 Lipid panel Lipid Panel [facility] Start: 1980 Screening for osteoporosis Bone Density Scan [facility] Start: 1980 Yearly Adult Physical Yearly Adult P hysical [facility] Cardiovascular funct ion eval w/tilt table w/mntr TILT TABLE EVALUATION Cardiology Routine POTS (postural orthostatic tachycardia syndrome) Ordered: 03/09/2022 [facility] Work Phone: Comment on above: Ordered: 03/09/2022 End: 03-05-2024 DXA-AXIAL SKELETON DXA-AXIAL SKELETON Radiology Routine Steroid-induced osteoporosis 1 Occurrences starting 02/04/2023 until 03/05/2024 [facility] Work Phone: Comment on above: 1 Occurrences starti ng 02/04/2023 until 03/05/2024 End: 03-05-2024 DXA-FOREARM SKELETON DXA-FOREARM SKELETON Radiology Routine Steroid-induced osteoporosis 1 Occurrences starting 02/04/2023 until 03/05/2024 [facility] Work Phone: Comment on above: 1 Occurrences starti ng 02/04/2023 until 03/05/2024 ECG 12 Lead ECG 12 Lead ECG Routine Irregular heart rate 06/09/2023 8:28 AM EST [facility] Work Phone: End: 03-09-2023 HOME SLEEP APNEA TEST (HSAT) HOME SLEEP APNEA TEST (HSAT) Procedures Routine Somnolence, daytime Snoring 1 Occurrences starting 03/09/2022 until 03/09/2023 [facility] Work Phone: Comment on above: 1 Occurrences starti ng 03/09/2022 until 03/09/2023 Oxygen therapy [[facility] Data Set] Initiate Oxygen Therapy Protocol Respiratory Care Routine Daily until discontinued starting 10/07/2020 [facility] Work Phone: Comment on above: Daily until disconti nued starting 10/07/2020 End: 03-04-2023 Polysomnogram POLYSOMNOGRAM (PSG) Procedures Routine Somnolence, daytime Snoring 1 Occurrences starting 03/04/2022 until 03/04/2023 [facility] Work Phone: Comment on above: 1 Occurrences starti ng 03/04/2022 until 03/04/2023 [facility] Immunizations Immunization Date Immunization Notes Care Provider Fa cility 02-23-2023 COVID-19 vaccine, ag e 12+ yr, 2022- season (PFIZER-BIONTECH) Lynne Ni MD Work Phone: [facility] Payers Date Payer Category Payer Self-pay 2017 Unknown [employer] [id number] 2017-Present [address] [place] [address] [id number] 2009 Medicaid [employer] [id number] 2009-Present [phone] [address] [place] [address] Medicaid [id number] 2009 Medicaid [id number] 1980 Unknown [id number] 1980 Unknown [id number] [id number] 1980 Unknown [id number] [id number] 1980 Unknown [id number] [id number] 1980 Unknown [id number] [id number] 1980 Unknown [id number] [id number] 1980 Unknown [id number] [id number] 1980 Unknown [id number] [id number] 1980 Unknown [id number] [id number] 1980 Unknown [id number] [id number] 1980 Unknown [id number] [id number] 1980 Unknown [id number] [id number] 1980 Unknown [id number] [id number] 1980 Unknown [id number] [id number] 1980 Unknown [id number] [id number] 1980 Unknown [id number] [id number] 1980 Unknown [id number] [id number] 1959 Unknown [id number] 1959 Unknown [id number] Unknown [id number] Social History Date Type Detail Facility Start: 10-07-2020 End: 06-09-2023 Tobacco smoking status NJIS Current every day smoker [facility] Start: 10-07-2020 End: 06-09-2023 Tobacco use and exposure Never used [facility] Start: 10-07-2020 Alcohol intake Lifetime non-d claudia (finding) [facility] Work Phone: Start: 10-07-2020 History SDOH Alcohol Frequency 1 [facility] Phone: Start: 1980 Sex Assigned At Not on file [facility] Phone: Start: 02-22-2022 End: 06-09-2023 Exposure to SARS-CoV-2 (event) Not sure [facility] History of tobacco use Cigarette Smoker C [facility] Start: 05-31-2014 End: 06-09-2023 Cigarettes smoked current (pack per day) - Reported 1 [facility] Start: 10-24-2021 End: 04-26-2023 Alcohol intake Current non-drinker of alcohol (finding) [facility] Start: 10-14-2021 End: 10-24-2021 Exposure to SARS-CoV-2 (event) Unable to assess [facility] Start: 10-22-2022 End: 06-09-2023 Sex Assigned At [facility] Adult Depression Screening Assessment 1 [facility] Clinical Notes 05-31-2014 to 06-15-2023 Mihcelle Britton APRN-PSYCH THERAPIST - 06/09/2023 8:30 AM ESTPatient InstructionsChristie Phan MD - 05/26/2023 5:00 PM ESTTelephone Encounter - Renate Lawrence MA - 04/26/2023 5:26 PM ESTPatient Instructions Note Date & Type Note [facility] 06-15-2023 Note [facility] 06-10-2023 Note [facility] 06-09-2023 History of Presen t illness Narrative Jones aHley is a 42 y.o. female that presents to the office today for new patient evaluation as self referral for palpitations and elevated heart rates. She has a PMH of HTN, HLD, tachycardia, anemia, JOSE RAFAEL with CPAP compliance, lupus, autonomic dysfunction, arthritis, chronic back pain. She has undergone cardiac workup in the past in [place] as noted below. She also states that she follows with Neurology for possible POTS syndrome. Admits to daily tobacco use, 1 pack of cigarettes per day. Denies vaping, ETOH, recreational drugs. Admits to drinking approximately 1 pot of coffee per day. Denies daily exercise. 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 She is in a [employer] relations ship and has children. Family history negative for heart disease other than maternal grandmother CABG. She states that her palpitations/tachycardia started approximately 2019 for which she was started on Metoprolol tartrate. She states that her palpitations and elevated heart rate have continued to increase in frequency since then with increased doses of metoprolol tartrate to current dose of 100 mg twice day. She states that she notices her palpitations/tachycardia do not occur when she is laying down but when she is sitting up or with activity. Stating that sometime they are so bad she cannot walk from one room to the other. She also admits to labile blood pressure stating that if she is laying down her blood pressure is low but as soon as she gets up her blood pressure is elevated and continues to elevate. She also admits to exertional shortness of breath and occasional left sided chest discomfort that sometimes radiates to her left arm and jaw. She also admits of frequent lightheadedness and dizziness. Testing Reviewed EKG obtained in the office today and verified with Dr. Patel shows NSR HR 80 bpm, QT/Qtc 368/424. 06/03/2023 labs; NA 142, K4.0, BUN 12, creatinine 0.70, ALT 21, AST 10, WBC 12.8, Hgb 13, HCT 40, platelets 261, Sed rate 35. 2020 Left heart cath: Normal coronary arteries, Normal LV function I have reviewed EKG, PMH, medications and assessment with Dr. Patel who recommends obtaining holter monitor and Echocardiogram. It is also felt that Adipex may be cause of her symptoms and she may need to be changed to a different weight loss medication by her PCP. Assessment/Plan Palpitations/Tachycardia: EKG as noted in office today. Will obtain 48 hr holter monitor to assess for atrial and ventricular arrhythmias. Will also obtain TSH and Atif T$. We have discussed Adipex and she states that this medication was prescribed for her but she has not yet started it. I have recommended that she not start this medication due to its side effects of hypertension, tachycardia and cardiomyopathy which she is agreeable to. She states that she was on this medication in 2019 but has not taken it since. She is also in agreement to have this medication removed from her current medication list. Exertional shortness of breath: Will obtain Echocardiogram to assess for valve and pump function Chest discomfort: Negative left heart cath 2020. Possible secondary to palpitations or muscular/skeletal. Further cardiac testing pending echo results Hyperlipidemia: She states that she has a history of high cholesterol. I am unable to find recent Lipid panel. Will obtain Lipid panel. Hypertension: labile hypertension. Further recommendations pending testing results. Further recommendations pending labs and testing results Follow in office with Dr. Patel after testing or sooner if needed. Patient Active Problem List Diagnosis Anemia, unspecified Anxiety Autonomic dysfunction Depression, recurrent (CMS/HCC) Discoid lupus erythematosus Chronic bilateral low back pain with bilateral sciatica Hyperlipidemia Obesity, Class III, BMI 40-49.9 (morbid obesity) (CMS/HCC) Obstructive sleep apnea syndrome Arthritis Tachycardia Vitamin B12 deficiency Vitamin D deficiency Essential hypertension Social History Tobacco Use Smoking status: Every Day Types: Cigarettes Smokeless tobacco: Never No past medical history on file. Current Outpatient Medications: azaTHIOprine (Imuran) 50 mg tablet, Take 3 tablets (150 mg) by mouth 3 times a day., Disp: , Rfl: belimumab (Benlysta) 200 mg/mL injection, Inject 1 mL (200 mg) under the skin 1 (one) time per week., Disp: , Rfl: clindamycin phosphate 1 % gel, once daily, Apply topically once daily., Disp: , Rfl: clobetasoL 0.05 % shampoo, Apply topically. 1 application to the scalp in the shower topically 3-4 times a week, Disp: , Rfl: ergocalciferol (Vitamin D-2) 1.25 MG (08459 UT) capsule, Take 1 capsule (50,000 Units) by mouth 1 (one) time per week., Disp: , Rfl: fluocinonide (Lidex) 0.05 % external solution, Apply topically once daily. apply to affected area on scalp topically qd-bid prn for 30 day(s), Disp: , Rfl: folic acid (Folvite) 1 mg tablet, Take 1 tablet (1 mg) by mouth once daily., Disp: , Rfl: metoprolol tartrate (Lopressor) 50 mg tablet, Take 2 tablets by mouth twice a day., Disp: , Rfl: montelukast (Singulair) 10 mg tablet, Take 1 tablet (10 mg) by mouth once daily at bedtime., Disp: , Rfl: predniSONE (Deltasone) 10 mg tablet, Take 1 tablet (10 mg) by mouth once daily., Disp: , Rfl: thiamine 100 mg tablet, Take 1 tablet (100 mg) by mouth once daily in the morning. Take before meals., Disp: , Rfl: topiramate (Topamax) 25 mg tablet, Take 1 tablet (25 mg) by mouth twice a day., Disp: , Rfl: triamcinolone acetonide 0.025 % lotion, 1 Application., Disp: , Rfl: acetaminophen (Tylenol) 500 mg tablet, Take 2 tablets (1,000 mg) by mouth every 8 hours if needed for mild pain (1 - 3), moderate pain (4 - 6), headaches or fever (temp greater than 38.0 C)., Disp: , Rfl: aspirin 81 mg chewable tablet, Chew 1 tablet (81 mg) once daily., Disp: , Rfl: hydroxychloroquine (Plaquenil) 200 mg tablet, Take 1 tablet (200 mg) by mouth 2 times a day., Disp: , Rfl: ibuprofen 200 mg tablet, Take 3 tablets (600 mg) by mouth every 8 hours if needed., Disp: , Rfl: pregabalin (Lyrica) 75 mg capsule, Take 1 capsule (75 mg) by mouth 3 times a day., Disp: , Rfl: Doxycycline and Sulfamethoxazole-trimethoprim No family history on file. No past surgical history on file. Review of systems Constitutional: No weight loss, fever, chills, weakness or fatigue HEENT: No visual loss, blurred vision, double vision or yellow sclerae Skin: No rash or itching Cardiovascular: Positive for chest discomfort and palpitations. Denies edema. Respiratory: Positive for exertional shortness of breath, denies cough or sputum Gastrointestinal: No nausea, vomiting or diarrhea. No bloody or dark tarry stools. Neurological: Positive for lightheadedness, dizziness, No headache, syncope. No numbness or tingling in the extremities. No change in mood, affect, memory, metation. Musculoskeletal: Positive for chronic back pain and lower extremity weakness. Hematologic: No anemia, bleeding or bruising. BP 146/82 (BP Location: Right arm, Patient Position: Sitting) Pulse 80 Ht 1.702 m (5' 7 ) Wt 129 kg (284 lb) BMI 44.48 kg/m Patient Active Problem List Diagnosis Anemia, unspecified Anxiety Autonomic dysfunction Depression, recurrent ([facility]/HCC) Discoid lupus erythematosus Chronic bilateral low back pain with bilateral sciatica Hyperlipidemia Obesity, Class III, BMI 40-49.9 (morbid obesity) (CMS/[facility]) Obstructive sleep apnea syndrome Arthritis Tachycardia Vitamin B12 deficiency Vitamin D deficiency Essential hypertension Physical Exam Constitutional: Well developed, awake/alert x 3, no distress. Head/Neck: No JVD, No bruits Respiratory/Thorax: patent airways, CTAB, normal breath sounds with good expansion. Cardiovascular: Regular rate and rhythm, no murmurs, normal S1 and S2, Gastrointestinal: Non distended, soft, non-tender, no rebound tenderness or guarding. Extremities: No cyanosis, edema. Neurological: Alert and oriented x 3. Moves extremities spontaneous with purpose. Psychological: Appropriate mood and behavior Skin: Warm and Dry. No lesions or rashes. Please excuse any errors in grammar or translation related to dictation, voice recognition software was used to prepare this document. documented in this encounter [facility] Work Phone: 06-01-2023 Note [facility] 05-26-2023 Note [facility] 05-26-2023 Instructions Christie Phan MD - 05/26/2023 5:43 PM EST Images from the original note were not included. https://Sabrix/emmau-bolgayese/ https://nutritionstudies.org/ho y-ql-lseatrfcy-ythdrtbl-zd-cvcx o-i-ncreb-tozd-fsulu-aecjg-life style/ https://www.Cliq.c om/blog/plantbasedkids https://[employer]/p gair-mwhxs-zsgd-for-kids/ https://Cint.HackMyPic/how-t s-wtiicoueey-oevf-fzwd-sl-s-randee vn-vykaj-ptmk/ WHAT TO EAT? Breakfast: Overnight Oats Base ingredients: 1/3 cup rolled oats, 1/3 cup plain almond milk, 1tsp kyle seeds. Optional add-ins: cinnamon, flax seeds, honey or maple syrup, nut butter, chopped nuts. Toppings: Any fresh fruit chopped. Mix together and place in refrigerator. Can make 5 at a time for the whole week. Homemade fresh oatmeal. Can also make in the crockpot. Bolivian muffin/almond butter topped with fresh berries Bolivian muffin, cooked egg/egg white, tomato, thin slice norwegian cheese Fresh berries, hard boiled egg, whole wheat toast Plain yogurt topped with berries, unsalted nuts, drizzle of honey Whole grain toast/Bolivian muffin topped with mashed avocado and tomatoes Lunch: Dinner leftovers packed in Tupperware, side of fruit Salad mixture topped with a protein (chick breast/tuna/hard boiled egg/beans), dressing and side of fruit Dinner - Refer to plate senior planner pictures to help select foods and portion ratios of protein, vegetables/starches. Keep it simple and rotate your favorite meals. Sheet nix meals Soups Grilled protein/vegetables/side of starch (plate senior planner picture) Stir can with protein, mixed vegetables, and riced cauliflower or portion controlled whole grain rice. Make your own bowls - Kiswahili/Mozambican/ theme [place] with Zoodles (spiralized vegetable noodles). Roasted vegetable wraps Alter traditional recipes to reflect HIGH QUALITY ingredients in the right QUANTITIES. Snacks - portion controlled: Raw veggies (can have with hummus, mashed avocado, salsa). Unsalted nuts Fruit (1 serving). (optional side of peanut butter) Air pop popcorn [place] and low fat norwegian cheese rolled up String cheese Protein balls (mix rolled oats, nut butter, flax seeds, dash almond milk). Beverages: Water Coffee, Hot tea Unsweetened ice tea EATING OUT: Research menu online, include nutritional information. Make your order decision before getting to restaurant. Stick to recommended portions (plate senior planner picture). Ask for substitutions or modifications. Consider splitting entr e with someone or requesting portion. Ask for dressings on side. Request light for sauces, cheese, sour cream, etc. or go without. Avoid fried foods. Skip the bread basket/appetizers/dessert Healthy Proteins: Lean animal/fish protein: chicken breast, turnkey breast, lean pork chop, pork tenderloin, salmon, white fish, tuna, grouper, perch, walleye. Plant based proteins: Tofu, edamame, lentils, chickpeas, unsalted nuts, nut butter, quinoa, kyle seeds, hemp seeds, beans , baked potato, sprouted grain bread, chick peas https://www.beRecruited/[place]/7480953/mediterranean-diet- eqyj-iym-ehpjwyukl/ https://www.beRecruited/Syntaxin/4274/vtzzexrtrmnxm-kvsj-hn nter/ https://www.beRecruited/Syntaxin/4300/sodqszmlxrjxc-ucej-vu al-plans/ My current favorite cookbooks are documented in this encounter [facility] 05-26-2023 History of Presen t illness Narrative Images from the original note were not included. [facility] Follow-Up Appointment Assessment Jones Haley is a 41 year old female with a PMH of Chronic Pain, Chronic Fatigue, Fibromyalgia, HLD, B12 def, Elevated ESR, anemia, lupus, depression, CHRISTIAN +, bit d def., Obesity (BMI 41.65) who is here to improve pain and weight with lifestyle and integrative medicine. Note can't exercise because of POTS (safety issue). She feels like the medication is helping. We will see how she does over the next 3 months. Will refer to nutrition to work towards a WFPB diet Plan Diagnoses and all orders for this visit: Obesity, Class III, BMI >= 40 - Phentermine HCl 37.5 mg tablet; Take 1 tablet by mouth daily before breakfast for 90 days. - CONSULT TO NUTRITION WELLNESS; Future - FOLLOW UP - WELLNESS; Future Other chronic pain - topiramate (TOPAMAX) 25 mg tablet; Take 1 tablet by mouth two times a day. - FOLLOW UP - WELLNESS; Future F/U: 3 months SUBJECTIVE: Jones Hlaey is a 42 year old female with a pertinent PMH as listed above presents for a lifestyle consult follow-up. Previous Will start phentermine and Topamax, then LDN at least 2 weeks later. Current - Need up in a flare for lupus, to a 40 mg taper.... - has lost about 7 lbs, despite taper on phentermine and topamax - is having head pressure, thinks its the new medication for lupus. Did an MRI. - bought alfred protein drink, low carb bread and pizza sauce with chicken, also bought some nuts PHYSICAL EXAMINATION: Physical Exam Constitutional: General: She is not in acute distress. Appearance: Normal appearance. She is not ill-appearing. HENT: Head: Normocephalic and atraumatic. Comments: Hearing grossly intact Eyes: General: No scleral icterus. Extraocular Movements: Extraocular movements intact. Pulmonary: Effort: Pulmonary effort is normal. Neurological: Mental Status: She is alert and oriented to person, place, and time. Psychiatric: Mood and Affect: Mood normal. Behavior: Behavior normal. Thought Content: Thought content normal. Judgment: Judgment normal. I spent a total of 45 minutes on the date of the service which included jrjy-sz-vfxf patient care, completing clinical documentation, performing a medically appropriate examination, counseling and educating the patient/family/caregiver, and ordering medications, tests, or procedures. Christie Phan MD, MA, [facility] Lifestyle Medicine Specialist documented in this encounter [facility] 05-19-2023 Note [facility] 04-26-2023 Note [facility] 04-26-2023 Miscellaneous Notes Medication pending with new pharmacy information. documented in this encounter [facility] 04-26-2023 History of Presen t illness Narrative Images from the original note were not included. [facility] Virtual Follow-Up Appointment Assessment Jones Haley is a 41 year old female with a PMH of Chronic Pain, Chronic Fatigue, Fibromyalgia, HLD, B12 def, Elevated ESR, anemia, lupus, depression, CHRISTIAN +, bit d def., Obesity (BMI 41.65) who is here to improve pain and weight with lifestyle and integrative medicine. Plan Will start phentermine and Topamax, then LDN at least 2 weeks later. Jones was seen today for established patient follow-up. Diagnoses and all orders for this visit: Obesity, Class III, BMI >= 40 - Phentermine HCl 37.5 mg tablet; Take 1 tablet by mouth daily before breakfast for 30 days. - FOLLOW UP - WELLNESS; Future FUO (fever of unknown origin) - FOLLOW UP - WELLNESS; Future Other chronic pain - topiramate (TOPAMAX) 25 mg tablet; Take 1 tablet by mouth two times a day. F/U: 4 weeks SUBJECTIVE: It s great to see you again. I want to confirm you are in [place] or [place] today, and check in to confirm your consent to be seen virtually. Jones Haley is a 42 year old female with a pertinent PMH as listed above presents for a lifestyle consult follow-up. Current Still having fevers, is lasting days. Lips go numb when this is starting to happen. Okay when PHYSICAL EXAMINATION: Physical Exam Constitutional: General: She is not in acute distress. Appearance: Normal appearance. She is not ill-appearing. HENT: Head: Normocephalic and atraumatic. Comments: Hearing grossly intact Eyes: General: No scleral icterus. Extraocular Movements: Extraocular movements intact. Pulmonary: Effort: Pulmonary effort is normal. Neurological: Mental Status: She is alert and oriented to person, place, and time. Psychiatric: Mood and Affect: Mood normal. Behavior: Behavior normal. Thought Content: Thought content normal. Judgment: Judgment normal. I spent a total of 40 minutes on the date of the service which included hibi-ig-mile patient care, completing clinical documentation, performing a medically appropriate examination, counseling and educating the patient/family/caregiver, and ordering medications, tests, or procedures. I have communicated my name and active licensure. The patient's identity and physical location were verified at the time of this visit. Either the patient or their legal installation service representative has been informed of the risks and benefits of -- and alternatives to -- treatment through a remote evaluation and consents to proceed with the evaluation remotely. Christie Phan MD, MA, [facility] Lifestyle Medicine Specialist documented in this encounter [facility] 04-26-2023 Note [facility] 04-26-2023 Nurse Note Spoke to Jones Haley, confirmed patient is registered on [employer] and is prepared for their appointment. Confirmed the patient has updated medications, allergies, and questionnaires via [employer]. Informed patient if there is an issue with the connection, provider will send the patient a secure link. If provider is running late, patient should remain connected to the visit. Patient verbalized understanding. documented in this encounter [facility] 04-22-2023 Miscellaneous Notes Pt called for Iron results; possible need for transfusion. Pt aware no need for iron infusion at this time. Enma Hamm RN documented in this encounter [facility] 04-16-2023 Note [facility] 04-16-2023 Note HNO ID: [id number] Author: Kenzie Shannon Service: ? Author Type: ? Type: Progress Notes Filed: 04/16/2023 11:10 AM Note Text: Patient Identification confirmed: yes. Injection given and documented on JUL per provider order. Kenzei Shannon [facility] 04-16-2023 History of Presen t illness Narrative Patient Identification confirmed: yes. Injection given and documented on MAR per provider order. Kenzie Shannon documented in this encounter [facility] 04-01-2023 Note [facility] 03-19-2023 Note HNO ID: [id number] Author: Kenzie Shannon Service: ? Author Type: ? Type: Progress Notes Filed: 03/19/2023 11:22 AM Note Text: Patient Identification confirmed: yes. Injection given and documented on MAR per provider order. Kenzie Shannon [facility] 03-19-2023 History of Presen t illness Narrative Patient Identification confirmed: yes. Injection given and documented on MAR per provider order. Kenzie Shannon documented in this encounter [facility] 03-16-2023 Note [facility] 03-16-2023 History of Presen t illness Narrative CMN RECEIVED BY [employer] VIA FAX, COMPLETED, AND PLACED IN PROVIDER MAILBOX FOR SIGNATURE On March 16, 2023 By Marija Ziegler [employer]. [employer] SENDING CMN: JOSH SIGNED AND DATED CMN, FAXED TO [employer] & CONFIRMATION PAGE RECEIVED: 03.24.23 documented in this encounter [facility] 03-11-2023 Note [facility] 03-11-2023 History of Presen t illness Narrative AMBULATORY PATIENT EDUCATION TOPIC: SURVIVAL SKILLS: weekly self injections of Benlysta READINESS TO LEARN COGNITIVE ABILITY: Alert and oriented MOTIVATION TO LEARN: Eager Interested FAMILY SUPPORT: Unable to assess - Family not present INSTRUCTION PROVIDED TO: Patient PATIENT LEARNS BEST BY: Individual Instruction Demonstration FACTORS AFFECTING LEARNING: None PHYSICAL LIMITATIONS AFFECTING LEARNING: None LEARNING RESPONSE DIAGNOSIS: SLE METHOD OF INSTRUCTION: Individual instruction Verbal instruction Demonstration-Hands on Learning PATIENT / FAMILY RESPONSE: Performs skill independently: SELF INJECTION- Able to administer self injection using clean technique FOLLOW-UP PLAN: Patient instructed to call with any further issues SUPPLEMENTAL MATERIAL: None REFERRAL (RECOMMENDATION): None Electronically Signed By Beatriz Sanchez LPN In Department: RHEUMATOLOGY documented in this encounter [facility] 03-10-2023 Miscellaneous Notes Spoke with patient. We stopped her trulicity because of side effects. She only took the cymbalta for a week. She will restart and we will see how she is doing in 2 months. Have also ordered insulin labs to check for insulin resistance. documented in this encounter [facility] 03-01-2023 Miscellaneous Notes For chart: Eye exam 02/26/23 no ocular complication related to medication. Received eye exam from [facility]. Placed on your desk for review. documented in this encounter [facility] 02-19-2023 Note [facility] 02-19-2023 Nurse Note Patient Identification confirmed: yes. Injection given and documented on JUL per provider order. Radha Schofield MA documented in this encounter [facility] 02-19-2023 Instructions Jose Najera MD - 02/19/2023 11:40 AM EDT B12 shot today and every 4 weeks. Continue Folic acid. Follow up in 8 Weeks - labs 1 week before. documented in this encounter [facility] 02-19-2023 History of Presen t illness Narrative Images from the original note were not included. AMBULATORY TELEPHONE VISIT Jones Haley has consented to this telephone encounter. Persons Present: Patient and myself Chief Complaint/Reason: Anemia; To review recent blood work. HPI: Total Time Spent: 21 minutes Wilmer Driver APRN.PSYCH THERAPIST NAME: Jones Haley CLINIC NO.: [id number] DATE OF SERVICE: February 19, 2023 ([facility]) Some elements in this clinic note that are critical to medical decision making have been carefully reviewed and included from a prior clinic note dated: December 17, 2022 (Bob) & October 22, 2022 ([facility]) Referring Provider: Dr. Madelaine Ferris Additional Clinicians involved in Jones Haley's care: DIAGNOSIS: Multiple symptoms ASSESSMENT: 42 year old woman with generalized malaise for approximately 2 years. She has lymphadenopathy that has been biopsied in 2020 that came back negative and she reports intermittent fevers. She has had a heart cath for heart palpitations that was negative. She states that she hurts everywhere and her legs get weak she takes a long time for skin sores to heal and reports numbness around her bra line. She has an elevated IgM of unclear etiology, But is most likely reactive. On recheck, she is not anemic, iron is decreased, folate is low, IgM and IgG both decreasing. Currently on heart monitor for frequent tachycardia and palpitations. Diagnosis of sleep apnea. This could address a lot of her symptoms but hasn't seemed to improve that much since May. PLAN: B12 shot today and every 4 weeks. Continue Folic acid. Follow up in 8 Weeks - labs 1 week before. HPI: CASE HISTORY: Currently 2021 ongoing and generalized malaise with elevated IgM. 2020 lymph node biopsy from neck negative for malignancy. 2020 had a respiratory illness with dyspnea, possible bronchitis, no cough Updated Visit, February 19, 2023: Starting on benlysta for SLE on March 11 B12 is improving Folate replete When she is able to keep her CPAP on overnight, she feels pretty good (rested). Otherwise stiffness and pain is unchanged. Updated Visit, December 17, 2022: Virtual visit (Bob) Patient had requested that this visit be changed to a telephone visit due to scheduling and transportation. She states that her days are hit and miss . She also states that she is struggling with kidneys . She was in contact with her PCP who was unable to get her scheduled until next week. Her PCP did start her on Keflex. She admits to not taking the ffolic acid and states that she just resumed the folic acid. She has been having heavy menses the last couple of months. She remains on prednisone 10 mg daily. Data Reviewed: Most recent labs Assessment: No diagnosis found. Plan: Patient will continue the folic acid and encouraged to take daily. She will return to the office next week as scheduled for B12 injection. At that time we will determine if we will change the frequency of the B12 injections. We will plan to see her back in 2 months for follow-up. She will have labs drawn 1 week prior to her follow-up. Updated Visit, October 22, 2022: Increased dose of imuran for Lupus and thinks she is starting to feel a little better Had a biopsy of her lower lip done 2 days ago at [facility] - awaiting results. B12 helps especially at beginning of the month. Might consider every 3 weeks in future Forehead is swollen. Not sure it is related to plaquenil and gets worse on days she take the full dose vs. A partial dose. Will follow dermatology regarding this. Started Trulicity. Completing steroid taper now down to 10 mg. And stable there. Updated Visit, August 27, 2022: Jones Haley returns for follow-up and B12 injection. She has missed a few B12 injections. She follows with multiple doctors including and research methods instructor, digital analytics manager, biological technical officer and PCP. She has been told they are thinking her problems are related to lupus and/or fibromyalgia. She is on medication for POTS. She states that she has been sick since 2019. She states that its constantly something . She has had intermittent chest pain episodes. She states she feels like she has fevers but does not actually have a fever. She has a strange sensation to her scalp. She has lost some hair. She states that her body is stiff and everything hurts. She states that something is wrong and just exhausted with nobody finding exactly what is wrong with her. Her physicians have recently increased her prednisone. She remains on folic acid. She has been wearing her CPAP nightly. Updated Visit, May 20, 2022: 41 yo woman with chronic fatigue and elevated IgM. skin of her forehead is swelling and red. Rec trial of zyrtec. Failed sleep study and due for CPAP setup. IgM decreasing IgG still decreased. No M-spike Updated Visit, March 18, 2022: Returns to review labs. Still having significant fatigue and pains in extremities. Sleep study pending. Heart monitor for tachycardia in place. She is not anemic although has mild iron deficiency. IgM still elevated but decreasing. Initial Visit, March 04, 2022: Jones Haley presents today Hematology and Oncology evaluation. She is a 41 year old female who presents for heme-onc opinion regarding elevated IgM and constellation of constitutional symptoms. She is here with her preschool-aged daughter. 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 She was told she had bronchitis but never had a cough. Following this she ended up with what appeared to be a cold and then since then has been having persistent and intermittent low-grade fevers with palpitations. She had a cardiac cath done for palpitations and was negative. She also noted waxing and waning lymphadenopathy in her neck and jaw and had a biopsy done approximately 1 year ago that she reports is negative. She also notes that she has poor dentition and does not like to go to the dentist. This may be a cause of this lymphadenopathy. She has an elevated sedimentation rate but this is fairly common and obesity as well as nonmalignant inflammatory conditions. On further questioning she reports snoring as well as daytime fatigue and reflux. She has gained approximately 18 pounds since she has been on and off prednisone. Causes of her elevated IgM could be related to poor dentition as well as chemical pneumonitis caused by sleep apnea due to excessive reflux. I also noted that her B12 level is relatively low. REVIEW OF SYSTEMS Per HPI and otherwise negative by full review of organ systems. ECOG PERFORMANCE STATUS: 0 PHYSICAL EXAMINATION: Vitals: BP 132/69 Pulse 110 Temp (Src) 97.4 (Temporal) Resp 16 Ht 5' 7.008 (1.70m) Wt 266 lb 3.2 oz (120.7kg) SpO2 96% LMP 02/26/2022 BMI 41.68 kg/(m^2). Body surface area is 2.39 meters squared. Exam limited to gross visualization where appropriate. Gen.: This is an age-appropriate patient in no acute distress. Head: Appears atraumatic with no visible lesions. Eyes: Pupils equally round and reactive to light, extraocular muscles are intact. Neck: Supple. Respiratory: Appears to be respiring comfortably. Neurologic: Nonfocal to gross visualization. Alert and oriented 3. Psychiatric: No evidence of inappropriate anxiety or depression. Skin: Visible areas of skin without rash, lesions, wounds or petechiae. ALLERGIES: ALLERGIES Allergen Reactions Bactrim [Sulfametho* GI Upset Codeine Other: See Comments Make her feel Jittery. OTHERWISE, NO SOB/WHEEZING, and NO DYSPHAGIA, NO URTICARIA, NO ANGIOEDEMA Clindamycin Unknown Patient states it was a long time ago and she did not have a severe reaction. She does not believe she is allergic, she just thinks she just experienced side effects. Doxycycline Other: See Comments Patient states it was a long time ago and she did not have a severe reaction. She does not believe she is allergic, she just thinks she just experienced side effects. Latex Rash Patient states it was a long time ago and she did not have a severe reaction. She does not believe she is allergic, she just thinks she just experienced side effects. Sulfamethoxazole-Tr* Swelling Patient states it was a long time ago and she did not have a severe reaction. She does not believe she is allergic, she just thinks she just experienced side effects. Trimethoprim Other: See Comments Patient states it was a long time ago and she did not have a severe reaction. She does not believe she is allergic, she just thinks she just experienced side effects. MEDICATIONS: azaTHIOprine (IMURAN) 50 mg tablet^TAKE 3 TABLETS BY MOUTH DAILY WITH FOOD. HOLD IF ON ANTIBIOTICS OR ILL.^Disp: 90 tablet^Rfl: 3 belimumab (BENLYSTA) 200 mg/mL^Inject 200mg (1 pen) subcutaneously once weekly^Disp: 12 mL^Rfl: 3 ergocalciferol 50,000 unit capsule (VITAMIN D2, DRISDOL)^(take by mouth with food 3times a week, ONE CAPSULE ON Mondays, Fridays) FOR A TOTAL OF 8 WEEKS, then once a week thereafter.^Disp: 28 capsule^Rfl: 1 folic acid 1 mg tablet^TAKE 1 TABLET BY MOUTH EVERY DAY^Disp: 90 tablet^Rfl: 3 hydrOXYchloroQUINE (PLAQUENIL) 200 mg tablet^TAKE 1 TAB TWICE A DAY WITH FOOD *SUNSCREEN WHILE OUTDOORS/OPHTHAMOLOGY EVERY 6-12 MONTHS WHILE ON*^Disp: 180 tablet^Rfl: 3 predniSONE (DELTASONE) 10 mg tablet^Take 40mg daily x 5days, then decrease 5mg every 5days until 10mg daily thereafter^Disp: 120 tablet^Rfl: 1 pregabalin (LYRICA) 75 mg capsule^TAKE 1 CAPSULE BY MOUTH 3 TIMES A DAY^Disp: 270 capsule^Rfl: 1 metoprolol tartrate, short acting, (LOPRESSOR) 50 mg tablet^Take 50 mg by mouth twice daily.^Disp: ^Rfl: CPAP/BIPAP/OTHER^Type .CPAPSettings into a note to see current settings/supplies/DME information.^Disp: 1 Each^Rfl: 0 CPAP/BIPAP/OTHER^Type .CPAPSettings into a note to see current settings/supplies/DME information.^Disp: 1 Each^Rfl: 0 simvastatin (ZOCOR) 20 mg tablet^^Disp: ^Rfl: Biotin 10 mg tab^2^Disp: ^Rfl: acyclovir (ZOVIRAX) 400 mg tablet^Take 400 mg by mouth once daily.^Disp: ^Rfl: acetaminophen (TYLENOL) 500 mg tablet^Take 1,000 mg by mouth.^Disp: ^Rfl: aspirin 81 mg chewable tablet^Take 81 mg by mouth.^Disp: ^Rfl: ibuprofen (MOTRIN) 200 mg tablet^Take 600 mg by mouth. ^Disp: ^Rfl: dulaglutide (TRULICITY) 1.5 mg/0.5 mL pen injector^Inject 1.5 mg subcutaneously one time a week.^Disp: 2 mL^Rfl: 0 DULoxetine (CYMBALTA) 20 mg capsule^Take 1 capsule by mouth once daily.^Disp: 30 capsule^Rfl: 2 dulaglutide (TRULICITY) 0.75 mg/0.5 mL pen injector^Inject 0.75 mg subcutaneously one time a week.^Disp: 2 mL^Rfl: 0 LABORATORY VALUES: WBC (k/uL) Date Value 02/11/2023 10.21 RBC (m/uL) Date Value 02/11/2023 4.32 Hemoglobin (g/dL) Date Value 02/11/2023 13.2 Hematocrit (%) Date Value 02/11/2023 41.0 MCV (fL) Date Value 02/11/2023 94.9 MCH (pg) Date Value 02/11/2023 30.6 MCHC (g/dL) Date Value 02/11/2023 32.2 RDW-CV (%) Date Value 02/11/2023 14.6 Platelet Count (k/uL) Date Value 02/11/2023 258 MPV (fL) Date Value 02/11/2023 9.6 Glucose (mg/dL) Date Value 02/11/2023 164 (H) BUN (mg/dL) Date Value 02/11/2023 15 Creatinine (mg/dL) Date Value 02/11/2023 0.76 Sodium (mmol/L) Date Value 02/11/2023 141 Potassium (mmol/L) Date Value 02/11/2023 4.0 Chloride (mmol/L) Date Value 02/11/2023 107 (H) CO2 (mmol/L) Date Value 02/11/2023 23 Protein, Total (g/dL) Date Value 02/11/2023 6.5 02/11/2023 6.2 (L) Albumin (g/dL) Date Value 02/11/2023 4.0 Calcium, Total (mg/dL) Date Value 02/11/2023 9.7 Alkaline Phosphatase (U/L) Date Value 02/11/2023 75 Bilirubin, Total (mg/dL) Date Value 02/11/2023 <0.2 (L) AST (U/L) Date Value 02/11/2023 11 (L) ALT (U/L) Date Value 02/11/2023 21 Cholesterol, Total (mg/dL) Date Value 05/21/2015 217 (H) Triglyceride (mg/dL) Date Value 05/21/2015 242 (H) DIAGNOSIS: (D53.1) Megaloblastic anemia due to vitamin B12 deficiency (primary encounter diagnosis) Plan: CBC + DIFF, COMP METABOLIC PANEL, IRON + TIBC, FERRITIN BLD, VITAMIN B12 BLOOD, FOLATE SERUM, DISCONTINUED: cyanocobalamin 1,000 mcg injection (R70.0) Elevated sed rate Plan: CBC + DIFF, COMP METABOLIC PANEL, IRON + TIBC, FERRITIN BLD, VITAMIN B12 BLOOD, FOLATE SERUM, DISCONTINUED: cyanocobalamin 1,000 mcg injection (R53.82, R53.81) Chronic fatigue and malaise Plan: CBC + DIFF, COMP METABOLIC PANEL, IRON + TIBC, FERRITIN BLD, VITAMIN B12 BLOOD, FOLATE SERUM (R76.8) High total serum IgM Plan: CBC + DIFF, COMP METABOLIC PANEL, IRON + TIBC, FERRITIN BLD, VITAMIN B12 BLOOD, FOLATE SERUM (G47.33) JOSE RAFAEL (obstructive sleep apnea) Plan: CBC + DIFF, COMP METABOLIC PANEL, IRON + TIBC, FERRITIN BLD, VITAMIN B12 BLOOD, FOLATE SERUM PAST MEDICAL HISTORY Diagnosis Date Chronic pain syndrome Depression, recurrent (HCC) Diffuse cystic mastopathy H/O mammogram 11/09/2013 Hypotension, unspecified Low back pain Megaloblastic anemia due to vitamin B12 deficiency 03/04/2022 Mixed hyperlipidemia Obesity, unspecified Pain, hip Physical exam, annual 01/16/14 Pilonidal cyst with abscess Sacroiliitis (HCC) Sciatica Tobacco use disorder Vitamin B12 deficiency Vitamin D deficiency PAST SURGICAL HISTORY Procedure Laterality Date PAST SURGICAL HISTORY OF 2011 and 2012 pilonidal cyst PAST SURGICAL HISTORY OF D & C PAST SURGICAL HISTORY OF ablation Social History Tobacco Use Smoking status: Every Day Packs/day: 1.00 Years: 20.00 Additional pack years: 0.00 Total pack years: 20.00 Types: Cigarettes Smokeless tobacco: Never Vaping Use Vaping Use: Never used Substance Use Topics Alcohol use: No Drug use: Yes Types: Marijuana Comment: Past use of marijuana at age of 18 FAMILY HISTORY Problem Relation Age of Onset Cancer Father stomach other (Crohn's [Other]) Mother I spent a total of 20 minutes on the date of the service which included preparing to see the patient, [id number] patient care, completing clinical documentation, performing a medically appropriate examination, counseling and educating the patient/family/caregiver, ordering medications, tests, or procedures, and independently interpreting results (not separately reported). Jose Najera MD, CPE Hematology and Oncology Services Provided at: [place], [place] CC: Madelaine Ferris MD [id number] [id number] documented in this encounter [facility] [place] 02-16-2023 Miscellaneous Notes Notify patient medication sent as requested Thank you. Patient's request for medication is as follows: Requested Prescriptions Pending Prescriptions Disp Refills azaTHIOprine (IMURAN) 50 mg tablet [Pharmacy Med Name: AZATHIOPRINE 50 MG TABLET] 90 tablet 3 Sig: TAKE 3 TABLETS BY MOUTH DAILY WITH FOOD. HOLD IF ON ANTIBIOTICS OR ILL. Prescription(s) as above. Please process accordingly. 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 Last Visual Field Exam No resulted procedures found. CBC: CBC Latest Ref Rng & Units 01/22/2023 02/11/2023 WBC 3.70 - 11.00 k/uL 13.80(H) 10.21 HEMOGLOBIN 11.5 - 15.5 g/dL 13.4 13.2 HEMATOCRIT 36.0 - 46.0 % 40.9 41.0 PLATELETS 150 - 400 k/uL 285 258 ABS NEUT (ANC) 1.45 - 7.50 k/uL - 6.99 ABS LYMPH 1.00 - 4.00 k/uL - 2.29 Vitamin D: Vitamin D Latest Ref Rng & Units 10/15/2022 01/22/2023 VITAMIN D 25 HYDROXY 31.0 - 80.0 ng/mL 28.3(L) 25.1(L) LFT: CMP Latest Ref Rng & Units 01/22/2023 02/11/2023 SODIUM 136 - 144 mmol/L 141 141 POTASSIUM 3.7 - 5.1 mmol/L 4.0 4.0 CHLORIDE 97 - 105 mmol/L 107(H) 107(H) CO2 22 - 30 mmol/L 24 23 GLUCOSE 74 - 99 mg/dL 60(L) 164(H) BUN 7 - 21 mg/dL 13 15 CREATININE 0.58 - 0.96 mg/dL 0.71 0.76 CALCIUM, TOTAL 8.5 - 10.2 mg/dL 9.4 9.7 AST 13 - 35 U/L 12(L) 11(L) ALT 7 - 38 U/L 27 21 ALKALINE PHOSPHATASE 34 - 123 U/L 62 75 Hepatic Function: Creatinine: Creatinine Latest Ref Rng & Units 01/22/2023 02/11/2023 CREAT 0.58 - 0.96 mg/dL 0.71 0.76 ESR/CRP: ESR, WSR Latest Ref Rng & Units 10/15/2022 01/22/2023 WSR 0 - 20 mm/hr 27(H) 20 CRP Latest Ref Rng & Units 10/15/2022 01/22/2023 CRP <0.9 mg/dL 0.3 <0.3 Uric Acid: Uric Acid Latest Ref Rng & Units 08/18/2022 02/11/2023 URIC ACID 2.5 - 6.6 mg/dL 3.8 4.3 Open Standing (Multiple Instance) Lab Orders None Open Future (Single Instance) Lab Orders Expected Expires Ordered COMP METABOLIC PANEL [SQCMP] 04/25/23 01/25/24 01/24/23 Auth. provider: Lynne Ni MD Assoc. diagnoses: Elevated LFTs CBC [SQCBC] 04/25/23 01/25/24 01/24/23 Auth. provider: Lynne Ni MD Assoc. diagnoses: Anemia of chronic disease SED RATE WESTERGREN [SQWSR] 04/25/23 01/25/24 01/24/23 Auth. provider: Lynne Ni MD Assoc. diagnoses: Elevated sed rate, Elevated C-reactive protein (CRP) C-REACTIVE PROTEIN (CRP) [SQCRP] 04/25/23 01/25/24 01/24/23 Auth. provider: Lynne Ni MD Assoc. diagnoses: Elevated sed rate, Elevated C-reactive protein (CRP) VITAMIN D 25 HYDROXY [SQVITD] 04/25/23 01/25/24 01/24/23 Auth. provider: Lynne Ni MD Assoc. diagnoses: Vitamin D deficiency documented in this encounter [facility] 02-08-2023 Miscellaneous Notes Spoke with patient Will get labs done when she does labs in Dec for Dre/Onc Mailed orders for DXA to pt so she can go to [facility] Pre cert Benlyst Scheduled Teaching visit for 4 weeks out to give time for ins and to receive medication. Will edison if not auth or received Scheduled [address] Ni in 6 mo Mirela Carlos February 08, 2023 11:15 AM Please call and schedule nonfasting labs 04/2023 Due for bone mineral density (1st time) patient requests order for Lamar Please schedule follow up office visit for lupus in 6months Please precert benlysta for lupus Failed 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, plaquenil Sent script to specialty pharmacy. Please Enroll in patient assistance Please Schedule nurse visit for injection instruction if approved/received Thank you. Patient's request for medication is as follows: Requested Prescriptions Signed Prescriptions Disp Refills belimumab (BENLYSTA) 200 mg/mL 12 mL 3 Sig: Sq prefilled pen 200mg injection once a week. Hold if on antibiotics or ill. Authorizing Provider: LYNNE NI Prescription(s) as above. Please process accordingly. Lynne Ni MD documented in this encounter [facility] 02-04-2023 Note [facility] 02-04-2023 Note [facility] 02-04-2023 Note [facility] 02-04-2023 Note [facility] 02-04-2023 Note [facility] 02-04-2023 History of Presen t illness Narrative [facility] received prescription(s) for Benlysta from Dr. Ni. Benefits investigation was conducted, indicating that a prior authorization is required by patients plan with [facility]. Encounter will be updated once prior authorization has been submitted by [facility]. Carlene Rendon CPhT [facility], [facility] P: [phone] F: [phone] documented in this encounter [facility] 02-04-2023 History of Presen t illness Narrative THIS IS A AMBULATORY VIRTUAL VISIT Patient has verbally agreed/consented to this virtual encounter, not originating from a related Evaluation & Management service provided within the previous 7 days. NOTE: Cannot be used if an Evaluation & Management service or procedure is planned within the next 24 hours. I have communicated my name and active licensure. The patient's identity and physical location were verified at the time of this visit. Either the patient or their legal installation service representative has been informed of the risks and benefits of -- and alternatives to -- treatment through a remote evaluation and consents to proceed with the evaluation remotely. It required patient-provider interaction for the medical decision making as documented below. Persons Present: self (in home) Provider: (in office) VIRTUAL VISIT Follow up for:osteoarthritis/low vitamin D/b12/ +CHRISTIAN/high esr/+tumid lupus biopsy Today's visit 02/04/23:due for labs 04/2023.reports heartburn, hairloss, numbness, swollen glands, rash. 01/22/23 vitamin b12 injection per heme/onc 01/11/23 saw derm for suture removal of left axilla punch biopsy, treated with keflex 01/01/23 saw allergy/immunology for high igm, low igg 11/23/22 patient increases to 3tabs daily 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 per patient request (had been taking 2tabs daily for a few months) 10/22/22 normal TPMT activity. Taking vitamin D script, plaquenil 2tabs daily 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 2tab daily, folic acid daily, cymbalta, tylenol, motrin. Patient interested in starting benlysta 07/2022 recent oral steroids. Has GERD/ no crohns. 2weeks ago eye exam, due for plaquenil testing soon. limited exercise due to POTs. More raynauds in feet. L>R wrist swelling. Chronic current pain in scalp/hair, legs, arms, wrists worse in last 2weeks. Reports pain 6/10. Has 10min minimal AM stiffness. Fevers off and on. COVID vaccine 09/28/20, 10/19/20, 05/26/21, 02/08/22. Skin changes better with prednisone/currently taking 10mg daily. In ED for rib cage pain, negative workup, gave mobic. Feels safe at home. Has enough food, supplies and medications. Overall uncomfortable but happy with rheum care. No falls/fx/trauma/illness/oral sores//jaw pain/dysphagia/epistaxis/hemopt ysis since last visit. No adverse effects with meds. No other complaints. Patient denies fever, chills, cp, dyspnea, nausea, vomiting, night sweats, scalp tenderness, visual changes, hernandez, bowel/bladder changes, weight changes or other complaints. 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, see primary care provider for recurrent flank pain/UTIs, improved with plaquenil 2tabs daily, start photoprotection, see ophthalmology, steroids per primary care provider/try weaning off, see derm/?eval recurrent boils, see spine/pain clinic/improved with lyrica/may increase if needed, see derm, start prn heat/ice/otc arthritis creams, low impact weightbearing exercise as tolerated, see neurology/on metoprolol for POTs, avoid aggravating triggers, senior living pain recommendations per primary care provider/pain clinic/patient currently declined cymbalta/lyrica, see ortho, prn brace, start fall precautions 06/15/22:in R knee brace since ACL with meniscal tear from fall/tripped over groceries 02/2022 initially in wheelchair, will treat with PT, has not started yet. saw hematology 05/20/22 for monthly vitamin B12 injections, daily folic acid. Reports numbness, swollen glands, weight changes, fevers. Had two vitamin b12 injections. On CPAP for JOSE RAFAEL. taking vitamin D script,did not take cymbalta due to side effect concerns, improved burning pain of back of pain lyrica/stopped since burning pain decreased thus patient self stopped, plaquenil 2tabs daily, motrin. Less hair loss lately. Due eye exam. On prednisone 2-3months ago 5-10mg daily from . original skin changes from biopsy improved with plaquenil. Steroids improved rest of skin except red puffiness of forehead. More boils on side of breast, buttocks (has had twice in past year even before steroids/plaquenil). Will see derm soon. Neurology offered medication for pain but patient declined due to side effect concerns. Red feet on soles. Feet very cold and painful. Chronic current pain in low back, neck, shoulders, all over. Feels all over heaviness comes in flares, better with steroids. Reports pain 10/31. minimal AM stiffness. COVID vaccine 09/28/20, , 05/26/21, 02/08/22. Feels safe at home. Has enough food, supplies and medications. Overall mildly uncomfortable but happy with rheum care. No falls/fx/trauma/illness/oral sores/rash/hairloss/jaw pain/dysphagia/epistaxis/hemopt ysis since last visit. No adverse effects with meds. No other complaints. Patient denies fever, chills, cp, dyspnea, nausea, vomiting, night sweats, scalp tenderness, visual changes, hernandez, bowel/bladder changes, or other complaints. 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 Episodes of fever/all over pain/flank pain. Flank pain better with antibiotics when home urine test abnormal. Has recurrent flank pain. Worst pain episode 03/2021 and less severe 08/2021 (better since taking plaquenil). Only started vitamin D script after 06/2021 lab resulted. Taking plaquenil 2tab daily. Due for eye exam. Labs sent to [place]/completed in 06/2021 (no results faxed to office, but patient pulled up results on her phone). Chronic current pain in neck, flank area, mid back, knees, legs, arms, all over pain. Better with lyrica 75mg 3times a day. Reports pain 4-12/31. Couple hrs AM stiffness. COVID vaccine [employer] 09/28/20, 10/19/20, 05/26/21. Feels safe at home. Has enough food, supplies and medications. Overall uncomfortable but happy with rheum care. No falls/fx/trauma/illness/oral sores/rash/hairloss/jaw pain/dysphagia/epistaxis/hemopt ysis since last visit. No adverse effects with meds. No other complaints. Patient denies fever, chills, cp, dyspnea, nausea, vomiting, night sweats, scalp tenderness, visual changes, hernandez, bowel/bladder changes, weight changes or other complaints. Last visit supportive care, start plaquenil/notify office if not tolerated, start photoprotection, see ophthalmology, see spine clinic, see derm, start prn heat/ice/otc arthritis creams, low impact weightbearing exercise as tolerated, avoid aggravating triggers March 05, 2021 SUBJECTIVE Ms. Haley is a 40 year old female who presents for +CHRISTIAN/high esr eval. 12years of back pain, abnormal LE EMG, no response with muscle relaxants, lyrica, or injections Waiting for MRI lumbar not approved until PT sessions completed Heel pain 3years ago, lost weight, better with steroids 07/2019 sore throat (told her she has gerd), also had lymph nodes swelling once in neck, painful in axilla Treated with antibiotics, unsure if helpful hairloss earlier in year. 10/2020 patches of raised rash on arms/chest, better with steroid injection 01/2021 Had wisdom tooth extracted 01/2021, then R jaw neck/swelling, improved with steroids injections Leg weakness lately Tibial pain Last month mid foot pain, worse with walking or sitting Pain worse in legs low back Painful to walk or play with children hands random painful/tingling Once a month feels feverish Bottom of feet red since few months Does not like prednisone, hungry, palpitations Does better with dexamethasone Reports pain 2-7/10 No falls/fx/trauma/illness/oral sores/rash/hairloss/jaw pain/dysphagia/epistaxis/hemopt ysis. No adverse effects with meds. No other complaints. Patient denies fever, chills, cp, dyspnea, nausea, vomiting, night sweats, scalp tenderness, visual changes, hernandez, bowel/bladder changes, weight changes or other complaints. COMPLETE REVIEW OF SYSTEMS: RHEUM. ROS: Joint pain: yes axilla, low back, legs, feet, flank pain Joint swelling: no Am stiffness: yes all day Low back pain: yes H/o precedent/frequent infection(s): as above Enthesopathy/Gillian's/heel/randee ntar tenderness: hands random painful/tingling Skin thickening, psoriasis, photosensitivity, purpura: as above Alpecia, patchy: yes Eye inflammation: glasses GI problems-diarrhea/bleeding/IBD/ Gluten intolerence/Dysphagia: as above Fatigue: yes, sleeps 10 hr/night PMR/GCA ROS: negative Patient denies history of Gout or Pseudogout, Psoriasis, Rheumatic Fever, GERD, PUD, Liver Disease, Hepatitis , Kidney Disease, Kidney Stones, DM, HTN, CAD, PAD, Sinusitis, Asthma, TB infection or exposure, Pneumonias, Anemia, Seizures, Stroke, MS, Clots, Cancer, Thyroid Disease, Transfusions, Tattoos and Alcohol dependency. Other ROS:The remainder of the review of systems is negative. All other reviewed and negative other than HPI. PATIENT REPORTS: Cardiac stress test:stable. Cardiac cath stable Breast exam:negative Pap exam: normal, last menses 02/26/21 late, not taking hormones; G7, P4, 3miscarriage Colonoscopy: no Bone Density:no History of Fractures:stress fracture R foot 2009 Height Loss: no IMMUNIZATION HX: Immunization History Administered Date(s) Administered COVID-19 original vaccine, age 12+ yr, monovalent (built[employer]io - [facility]) 09/28/2020 10/19/2020 05/26/2021 COVID-19 vaccine, age 12+ yr, bivalent (built[employer]) 02/08/2022 Pneumovax no Flu shot no Tetanus yes Last PPD: negative PAST MEDICAL HISTORY: PMH depression, diffuse cystic mastopathy, hypotension, hyperlipidemia, pilonidal cyst with abscess treated with I&D, s/p wisdom tooth extraction, s/p D&C , stress fracture R foot 2008 PAST SURGICAL HISTORY: s/p wisdom tooth extraction, s/p D&C PAST SURGICAL HISTORY Procedure Laterality Date PAST SURGICAL HISTORY OF 2011 and 2012 pilonidal cyst PAST SURGICAL HISTORY OF D & C PAST SURGICAL HISTORY OF ablation FAMILY HISTORY: mother-crohns, arthritis;father-pancreatic cancer;son-PTX; FAMILY HISTORY Problem Relation Age of Onset Cancer Father stomach other (Crohn's [Other]) Mother SOCIAL HISTORY: Social History Tobacco Use Smoking status: Every Day Packs/day: 1.00 Years: 20.00 Additional pack years: 0.00 Total pack years: 20.00 Types: Cigarettes Smokeless tobacco: Never Vaping Use Vaping Use: Never used Substance Use Topics Alcohol use: No Drug use: Yes Types: Marijuana Comment: Past use of marijuana at age of 18 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1, glucose 60;normal rest of cmp, cbc, esr 20, crp<0.3; 01/22/23 vitamin b12 injection per heme/onc 01/11/23 saw derm for suture removal of left axilla punch biopsy, treated with keflex 01/01/23 saw allergy/immunology for high igm, low igg 11/23/22 patient increases to 3tabs daily 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 per patient request (had been taking 2tabs daily for a few months) 10/22/22 normal TPMT activity. 10/15/22 high wbc 11.93, glucose 157, IGM 504, esr 27;low IGG 540, vitamin D 28.3;normal rest of cbc, cmp, crp 0.3, LDH 155, vitamin b12-368;negative spep; 08/18/22 hgh esr 25 (23);low vitamin b12-325;normal crp 0.3, uric acid 3.8, vitamin D 33.1; 05/12/22 low vitamin D 20.2, vitamin b12-293, potassium 3.2, igg 569, LD 134;high esr 23 (3), wbc 14, glucose 160, igm 509;normal rest of cbc, cmp, crp<0.3, uric acid 4.7, iron 77;negative spep, M protein; 03/04/22 low vitamin D 30.5 (189), IGG 645;high vitamin b12>2000, IGM 540;normal cbc, cmp, iron studies, folate 6.6, uric acid 5.2, bev 3.2;negative syphilis, HIV; 10/24/21 low vitamin b12-283, vitamin D 18.9;high esr 30 (33);NL cbc, cmp, negative hla b27; Outside [place] 06/2021 low vitamin D 16, vitamin b12-307;high wbc 11.1, esr 21;NL rest of hgb 12.2, plts 314, crp<0.5mg/dL; 03/05/21 low vitamin D 11 (6.7), vitamin b12-358;high esr 33;NL crp 0.5, ck 59, aldolase 3.9;negative pramod, ccp<15, hepatitis panel,quantiferon tb; Outside 11/2020 high esr 48, +CHRISTIAN 1:80/speckled;low tsh 0.41;NL crp<0.5, uric acid 4.1;negative RF<10, ASO; Outside 12/2019 lumbar xrays- mild facet arthrosis at L405, L5-S1 PHYSICAL EXAM:reviewed vitals General Appearance: WD/WN, NAD. Appropriate grooming. Very pleasant. Ambulates slowly with assistance right knee brace, uncomfortable due to pain, speaks in full sentences without distress SKIN: areas of redness on forehead, no psoriasis, no purpura, no ulcers, no skin thickening/tightness, no telangiectasias. HEENT: No patchy alopecia, normal temporal artery pulsations, non-tender, scalp non-tender, no conjunctival injection or icterus, no oral ulcers, no thrush, normal nasal mucosa, no sinus tenderness, normal TM's. yes glasses, dentition NECK: no visible thyromegaly or LAD. EXTREMITIES:No clubbing,discoloration,scleroda ctyly, periungual erythema, digital ulcers, nail pitting, edema, varicosities. MUSCULOSK: No joint deformities, no rheumatoid nodules, calcifications or tophi. No SI tenderness, no gillian's tenderness, no heel/plantar tenderness, lumbar flexion full, negative Sumaya's test, tinel's and phil tests Swoll JTS:no Tend. JTS: lumbar area, neck, knees, diffusely UEs, axilla, legs, feet, flank pain, decreased range of motion due to pain; no warmth/erythema No clinical synovitis in the DIP's, PIP's, MCP's, wrists, elbows, shoulders, knees, ankles, midfoot, or toes. no knee effusions bilateral. 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 Haley is a 42 year old female with PMH depression, diffuse cystic mastopathy, hypotension, hyperlipidemia, pilonidal cyst with abscess treated with I&D, s/p wisdom tooth extraction, s/p D&C 1990s, stress fracture R foot 2009 presents with 12years of back pain, abnormal LE EMG, no response with muscle relaxants, lyrica, or injections Waiting for MRI lumbar not approved until PT sessions completed Heel pain 3years ago, lost weight, better with steroids 07/2019 sore throat (told her she has gerd), also had lymph nodes swelling once in neck, painful in axilla Treated with antibiotics, unsure if helpful hairloss earlier in year. 10/2020 patches of raised rash on arms/chest, better with steroid injection 01/2021 Had wisdom tooth extracted 01/2021, then R jaw neck/swelling, improved with steroids injections Leg weakness lately Tibial pain Last month mid foot pain, worse with walking or sitting Pain worse in legs low back Painful to walk or play with children hands random painful/tingling Once a month feels feverish Bottom of feet red since few months Does not like prednisone, hungry, palpitations Does better with dexamethasone Reports pain 2-11/30 Outside 11/2020 high esr 48, +CHRISTIAN 1:80/speckled;low tsh 0.41; Arthrosis on imaging Has findings with inflammatory arthritis/+CHRISTIAN/high esr, secondary osteoarthritis of multiple joints, lumbago with sciatica, low vitamin D/b12, here recent skin biopsy showed tumoid lupus. 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 Episodes of fever/all over pain/flank pain. Flank pain better with antibiotics when home urine test abnormal. Has recurrent flank pain. Worst pain episode 03/2021 and less severe 08/2021 (better since taking plaquenil). in R knee brace since ACL with meniscal tear from fall/tripped over groceries 02/2022 initially in wheelchair, will treat with PT, has not started yet. saw hematology 05/20/22 for monthly vitamin B12 injections, daily folic acid. Reports numbness, swollen glands, weight changes, fevers. Had two vitamin b12 injections. On CPAP for JOSE RAFAEL. taking vitamin D script,did not take cymbalta due to side effect concerns, improved burning pain of back of pain lyrica/stopped since burning pain decreased thus patient self stopped,On prednisone 2-3months ago 5-10mg daily from . original skin changes from biopsy improved with plaquenil. Steroids improved rest of skin except red puffiness of forehead. More boils on side of breast, buttocks (has had twice in past year even before steroids/plaquenil). Will see derm soon. Neurology offered medication for pain but patient declined due to side effect concerns. Red feet on soles. Feet very cold and painful. due for labs 04/2023.reports heartburn, hairloss, numbness, swollen glands, rash. 01/22/23 vitamin b12 injection per heme/onc 01/11/23 saw derm for suture removal of left axilla punch biopsy, treated with keflex 01/01/23 saw allergy/immunology for high igm, low igg 11/23/22 patient increases to 3tabs daily 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 per patient request (had been taking 2tabs daily for a few months) 10/22/22 normal TPMT activity. Taking vitamin D script, plaquenil 2tabs daily 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 2tab daily, folic acid daily, cymbalta, tylenol, motrin. Patient interested in starting benlysta 07/2022 recent oral steroids. Has GERD/ no crohns. 2weeks ago eye exam, due for plaquenil testing soon. limited exercise due to POTs. More raynauds in feet. L>R wrist swelling. Chronic current pain in scalp/hair, legs, arms, wrists worse in last 2weeks. Reports pain 6/10. Has 10min minimal AM stiffness. Fevers off and on. COVID vaccine 09/28/20, 10/19/20, 05/26/21, 02/08/22. Skin changes better with prednisone/currently taking 10mg daily. In ED for rib cage pain, negative workup, gave mobic. Feels safe at home. Has enough food, supplies and medications. Overall uncomfortable but happy with rheum care. 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, see primary care provider for recurrent flank pain/UTIs, improved with plaquenil 2tabs daily, start photoprotection, see ophthalmology, steroids/prednisone 10mg daily/ per primary care provider/try weaning off, see derm/?eval recurrent boils, see spine/pain clinic/improved with lyrica/may increase if needed, see derm, start prn heat/ice/otc arthritis creams, low impact weightbearing exercise as tolerated, see neurology/on metoprolol for POTs, avoid aggravating triggers, senior living pain recommendations per primary care provider/pain clinic/patient currently declined cymbalta/lyrica, see ortho, prn brace, start fall precautions, answered all questions and concerns, patient voiced understanding. RECOMMENDATION/PLAN: [facility] Medigram on 02/04/23 DXA-AXIAL SKELETON DXA-FOREARM SKELETON Reviewed labs/tests with patient Provided printed info 02/04/23 precert for benlysta 02/04/23 check nonfasting labs every 3months 02/04/23 SLAQ 24;Modified 02/04/23 KRISTEN 0, pain 60%;06/15/22 KRISTEN 0, pain60%;10/24/21 KRISTEN 0, pain 40-80%;March 05, 2021 KRISTEN 0, pain 20-70%; May apply over the counter arthritis creams/patches (biofreeze, icy hot, asper cream, tiger balm, capsacin, lidocaine, salon pas, voltaren gel, etc.) or over the counter pain patches to painful joints up to four times a day. Avoid contact with eyes. May take Extra Strength acetaminophen 500mg every 4-6hours for joint pain. Do not exceed 3000mg /day. Decrease stress Improve sleep May apply heat/ice 20minutes on and off to areas of pain Avoid aggravating triggers If needed, may take Calcium 1000mg daily with food in DIVIDED doses If labs normal, take Vitamin D 4000 International Units daily with food after script completed Hydroxychloroquine/Plaquenil: Please take one tab (200mg) daily with a meal Please see wood flour miller every 6-12months while on Hydroxychloroquine. Start 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 daily with food. Please hold 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 if on antibiotics or if you have any signs/symptoms of infection. Recommend goal: exercising 30minutes 3-5 times a week Recommend weight-bearing aerobic exercises such as walking, dancing, low impact aerobics, elliptical machine, stair climbing, gardening flexibility exercises and strength training exercises Recommend avoiding high impact exercises such as jumping, running or jogging or movements where you bend forward and twist the waist, for instance- touching your toes, sit-ups, using row machine buttermaker pain recommendations per primary care provider/pain clinic Additional time spent with patient on healthy lifestyle, healthy food and anti-inflammatory diet (with emphasis on whole plant based diet), avoiding refined carbs/sugars and processed food, appropriate exercise (stretching, cardio and strengthening), good sleep hygiene, stress mgt, and supplementing vital deficiencies and maintaining healthy wt and BMI. Additional information provided with references and educational information. Bone Health Recommendations: -Bone Density: After age 70 yrs, sooner if new clinical risk factors, or systemic steroid use of 3 months or more. -Vitamin D supplementation recommended, optimal dose is the dose necessary to achieve Vitamin D 25-OH blood level in range of 40-60 ng/mL. -Recommended daily dose of calcium: 1000-1200mg total a day in divided doses. Calcium from dietary sources, if not sufficient, or if with h/o calcium nephrolithiasis would recommend Calcium Citrate supplement, as it is recommended to avoid calcium carbonate products, which as main dietary calcium source. The after visit summary has information on dietary calcium and instructions on reading calcium label and converting the %DV to mg. -Regular weight-bearing and muscle-strengthening exercise -Avoidance of tobacco smoking, excessive alcohol intake and excessive caffeine intake. -Fall and fracture precautions -Continued regular dental follow up visits and good dental/gum care Stressed the importance of following up with PCP and specialists for his/her chronic diseases, health, CV, and cancer screening and continued care. Will follow disease activity/progression and adjust therapeutic regimen to disease activity and severity. Discussed medication dosage, usage, goals of therapy, and side effects. Available test results were reviewed An additional 20minutes were spent outside of the patient visit to review records. Additional time spent with the patient to discuss their questions. Additional time spent with the patient devoted to discussing treatment strategy, planning, and implementation. Discussed findings, impression and plan with patient. Patient understands above plan; questions asked and answered. Patient agrees to plan as noted above. Total time spent on this visit, with more than 50% of time spent via video & audio (virtual) or phone or face to face with patient, in consultation, and in addition to Counseling and Coordination of Care, explanation of diagnosis, and planning of further management; I spent a total of 30 minutes 8:09-39AM on the date of the service in addition to 10-15min preparing to see the patient, video & audio (virtual) or phone or [id number] patient care, completing clinical documentation, obtaining and/or reviewing separately obtained history, performing a medically appropriate examination, counseling and educating the patient/family/caregiver, ordering medications, tests, or procedures, communicating with other HCPs (not separately reported), independently interpreting results (not separately reported), communicating results to the patient/family/caregiver and care coordination (not separately reported) Follow up 4-6months, earlier if needed Recommendations to share with referring physician/Primary care physician : Dear Dr.Douglas Sai Ferris MD and Gay Enciso CNP: I had the pleasure of seeing your patient, Jones Haley. I have enclosed a copy of my clinic note with my assessment and recommendations for this patient. Recommendations for your consideration as you deem necessary: -Continuous follow up with Primary care physician for cardiovascular disease prevention, for age appropriate cancer screening and routine health maintenance and wellness, and infection precautions and age appropriate immunization recommended. Thank you for allowing me to participate in the care of your patient. Lynne Ni MD I will relay my findings and recommendations to the physician requesting the consult by letter/electronic shared medical records. cc Gay Enciso CNP;Dr.Douglas Sai Ferris MD [facility] VISIT INTAKE QUESTIONNAIRE Question 02/02/2023 10:32 PM EDT - Filed by Patient 12/25/2022 1:11 PM EDT - Filed by Patient 12/16/2022 8:52 PM EDT - Filed by Patient Has the Patient Had 2 Falls in the Last Year or 1 Fall with Injury or Currently Using an Ambulatory Assistive Device (Walker, Cane, Wheelchair, Crutches, etc.) No No No Are you having pain associated with your visit today? Yes No No What is your Pain Level? 7 Pain Location Other: See Comment Description Aching Numbness Sore Stiffness Tightness Duration Amount of Time Duration Units Months Frequency Continuous Intervention/Comfort measure Medication Reposition Cold Heat Positioning Comments [facility] [place] [facility]O Question 02/02/2023 10:32 PM EDT - Filed by Patient Is this visit related to an accident, other than Workers' Compensation? No Is this visit related to Workers' Compensation? No Do you need an javascript front end developer? No [facility] MYCHART ZOOM MESSAGE Question 02/02/2023 10:32 PM EDT - Filed by Patient Install Zoom I have Zoom installed [facility] PROMIS CAT V2.0-PHYSICAL FUNCTION-28 DAYS Question 02/02/2023 10:33 PM EDT - Filed by Patient Does your health now limit you in doing two hours of physical labor? Cannot do Are you able to do chores such as vacuuming or yard work? Unable to do Are you able to carry a shopping bag or briefcase? With some difficulty Are you able to run errands and shop? With much difficulty PROMIS Physical Function T-Score (range: 10 - 90) 29 (severe dysfunction) PROMIS Physical Function Percentile (range: 0 - 100) 2 [facility] PROMIS CAT V1.0 - FATIGUE-28 DAYS Question 02/02/2023 10:33 PM EDT - Filed by Patient How often did you have to push yourself to get things done because of your fatigue? Often I have trouble starting things because I am tired Very much How run-down did you feel on average? Quite a bit I feel fatigued Very much PROMIS Fatigue T-Score (range: 10 - 90) 68 (moderate) PROMIS Fatigue Percentile (range: 0 - 100) 4 [facility] PROMIS CAT V1.1-PAIN INTERFERENCE-28 DAYS Question 02/02/2023 10:34 PM EDT - Filed by Patient How much did pain interfere with your day to day activities? Very much How much did pain interfere with your ability to participate in social activities? Very much How often did pain keep you from socializing with others? Often How much did pain interfere with your family life? Very much PROMIS Pain Interference T-Score (range: 10 - 90) (range: 10 - 90) 74 (severe) PROMIS Pain Interference Percentile (range: 0 - 100) 1 Answers submitted by the patient for this visit: Review of Systems Rheumatology (Submitted on 02/02/2023) Fever : Yes Recent Unintentional Weight Change: Yes Eye Pain: No Eye Redness: No Vision Disturbance: No Eye Dryness: No Nose Bleeds: No Sores in your Mouth: Yes Trouble Swallowing: No Dry Mouth: No Chest Pain: Yes Leg Swelling: No A Cough: No Shortness of Breath: No Pain with Breathing: No Heartburn: Yes Abdominal Pain: No Diarrhea: No Black Tarry Stools: No Blood in Urine: No Pain or Burning with Urination: No Joint Pain or Stiffness: Yes Muscle Weakness: Yes Muscle Aches: Yes Joint Swelling: Yes Morning Stiffness in Joints: Yes A Rash: Yes Do you have sun sensitive rashes?: Yes Skin Color Changes: No Hair Loss: Yes Nail Changes: No Headaches: No Numbness: Yes Memory Loss: No Swollen Glands: Yes [facility] SLAQ QUESTIONNAIRE Question 02/02/2023 10:38 PM EDT - Filed by Patient IN THE PAST 3 MONTHS, have you had a lupus flare? (A lupus flare is when your lupus gets worse). Which of the following responses best describes you? Yes, moderate flare Please review the following list of lupus symptoms. IN THE PAST 3 MONTHS, how bad has each of the symptoms been? Lost weight without trying Moderate Fatigue Moderate Fevers (greater than 101 F, 38.5 C) taken by a thermometer Severe Sores in mouth or nose Mild Rash on cheeks (shaped like a butterfly) Moderate Other rash Mild Dark blue or purple spots you could feel on your skin No problem Rash or feeling sick after going out in the sun Severe Bald patches on scalp, or clumps of hair on pillow Severe Swollen glands (nodes) in the neck Moderate Shortness of breath No problem Chest pain with a deep breath No problem Fingers or toes turning white or very pale in the cold (Raynaud's) Severe Stomach or belly pain No problem Persistent numbness or tingling in your arms or legs Moderate Seizures No problem Stroke No problem Forgetfulness No problem Feeling depressed Mild Unusual headaches Mild Muscle pain Severe Muscle weakness Moderate Pain or stiffness in joints Severe Swelling in joints Severe Please rate the disease activity of your lupus DURING THE PAST 3 MONTHS on the scale below, where 0 is no activity and 10 is the most activity. (Select your most active day). 5 SLAQ Score (range: 0 - 47) 24 MYC PROVIDER UNDERSTANDING CURRENT HEALTH RHEUMATOLOGY Question 02/02/2023 10:38 PM EDT - Filed by Patient These questions will help my provider understand my health Agree MYC DOCUMENT/IMAGE UPLOAD Question 02/02/2023 10:38 PM EDT - Filed by Patient Photo ID If there are images or documents you'd like to share with your provider during your visit, you may upload up to a total of five files. For body images use the pencil icon to label your image. When labeling the image, please use the following format: The name of the body part followed by the side. For example, Back of Right Forearm or Lower Left Leg. MYC PROMIS 10 ADULT SHORT FORM V1.0 GLOBAL HEALTH Question 12/16/2022 8:54 PM EDT - Filed by Patient 08/15/2022 5:03 PM EDT - Filed by Patient In the past 7 days In general, would you say your health is: Poor Abnormal Poor Abnormal In general, would you say your quality of life is: Poor Abnormal Poor Abnormal In general, how would you rate your physical health? Poor Abnormal Poor Abnormal In general, how would you rate your mental health, including your mood and your ability to think? Very good Fair Abnormal In general, how would you rate your satisfaction with your social activities and relationships? Fair Abnormal Fair Abnormal In general, please rate how well you carry out your usual social activities and roles. (This includes activities at home, at work and in your community, and responsibilities as a parent, child, spouse, employee, friend, etc.) Fair Abnormal Poor Abnormal To what extent are you able to carry out your everyday physical activities such as walking, climbing stairs, carrying groceries, or moving a chair? A little Abnormal A little Abnormal In the past 7 days In the past 7 days, how often have you been bothered by emotional problems such as feeling anxious, depressed or irritable? Rarely Rarely In the past 7 days, how would you rate your fatigue on average? Moderate Moderate In the past 7 days, how would you rate your pain on average? 7 Abnormal 7 Abnormal PROMIS Adult Short Form-Global Health Score (Physical) (range: 16 - 68) 29.6 (Poor) 29.6 (Poor) PROMIS Adult Short Form-Global Health Score (Mental) (range: 21 - 68) 41.1 (Good) 36.3 (Fair) [facility] Physical Score Compared To Last (range: -2 - 3) 3 (WITHIN +/- 5) 3 (WITHIN +/- 5) [facility] Mental Score Compared To Last (range: -2 - 3) 3 (WITHIN +/- 5) 2 (LESS < or = 5) documented in this encounter [facility] [place] 02-04-2023 Instructions Lynne Ni MD - 02/04/2023 6:17 AM EDT May apply over the counter arthritis creams/patches (biofreeze, icy hot, asper cream, tiger balm, capsacin, lidocaine, salon pas, voltaren gel, etc.) or over the counter pain patches to painful joints up to four times a day. Avoid contact with eyes. May take Extra Strength acetaminophen 500mg every 4-6hours for joint pain. Do not exceed 3000mg /day. Decrease stress Improve sleep May apply heat/ice 20minutes on and off to areas of pain Avoid aggravating triggers If needed, may take Calcium 1000mg daily with food in DIVIDED doses take Vitamin D with food as instructed Hydroxychloroquine/Plaquenil: Please take two tabs (200mg) daily with a meal Please see wood flour miller every 6-12months while on Hydroxychloroquine. 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 daily with food. Please hold 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 if on antibiotics or if you have any signs/symptoms of infection. Vitamin b12 as intsructed Recommend goal: exercising 30minutes 3-5 times a week Recommend weight-bearing aerobic exercises such as walking, dancing, low impact aerobics, elliptical machine, stair climbing, gardening flexibility exercises and strength training exercises Recommend avoiding high impact exercises such as jumping, running or jogging or movements where you bend forward and twist the waist, for instance- touching your toes, sit-ups, using row machine buttermaker pain recommendations per primary care provider/pain clinic Thank you. BONE MINERAL DENSITY PATIENT INSTRUCTIONS Bone mineral density testing measures the amount of calcium in certain parts of your bones. This information determines how strong your bones are. The test is used to detect osteoporosis, a disease in which the bone's mineral content and density are low, increasing a person's risk of fractures. The lumbar spine (lower back) and the hip are the skeletal sites usually examined. For the test, remember that: 1. You cannot take this test if you are . 2. Eat a normal diet on the day of the test. 3. Take your medications as you normally would. 4. DO NOT take calcium supplements (such as Tums) for 24 hours before the test. 5. On the day of the test, leave valuables (jewelry or credit cards) at home. 6. The test should be performed prior to oral, rectal or IV contrast studies, or at least 7 days after any of these studies. For the test, you may be asked to wear a hospital gown. You will lie on your back, on a padded table, in a comfortable position. Generally, you can resume your usual activities immediately. documented in this encounter [facility] [place] 01-26-2023 Miscellaneous Notes patient has viewed the [employer] message per [employer]. Please Call patient if [employer] note not read to review results/released to My Chart if tests completed at [facility]: mildly high normal wbc- will monitor. Mildly low vitamin D- increase and stay on vitamin D script. Improved/ normal rest of rheum labs. If infection free and off antibiotics may take 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 2tabs daily if agreeable. New script sent to pharmacy. Notify office if medication change is not tolerated. Recheck nonfasting labs in 3months, orders have been placed. Happy to further review and discuss at follow up visit. Continue rest of treatment plan per instructions at last office visit. Thank you. 01/22/23 high wbc 13.8;low vitamin D 25.1, glucose 60;normal rest of cmp, cbc, esr 20, crp<0.3; 01/22/23 vitamin b12 injection per heme/onc 01/11/23 saw derm for suture removal of left axilla punch biopsy, treated with keflex 01/01/23 saw allergy/immunology for high igm, low igg 11/23/22 patient increases to 3tabs daily 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 per patient request (had been taking 2tabs daily for a few months) 10/22/22 normal TPMT activity. 10/15/22 high wbc 11.93, glucose 157, IGM 504, esr 27;low IGG 540, vitamin D 28.3;normal rest of cbc, cmp, crp 0.3, LDH 155, vitamin b12-368;negative spep; 08/18/22 hgh esr 25 (23);low vitamin b12-325;normal crp 0.3, uric acid 3.8, vitamin D 33.1; Patient's request for medication is as follows: Requested Prescriptions Signed Prescriptions Disp Refills ergocalciferol 50,000 unit capsule (VITAMIN D2, DRISDOL) 28 capsule 1 Sig: (take by mouth with food 3times a week, ONE CAPSULE ON Mondays, Fridays) FOR A TOTAL OF 8 WEEKS, then once a week thereafter. Authorizing Provider: LYNNE NI Prescription(s) as above. Please process accordingly. Lynne Ni MD documented in this encounter [facility] [place] 01-22-2023 Nurse Note Patient Identification confirmed: yes. Injection given and documented on JUL per provider order. Radha Schofield MA documented in this encounter [facility] [place] 01-12-2023 Miscellaneous Notes Patient needs appointment before I can refill. Patient's request for medication is as follows: Requested Prescriptions Pending Prescriptions Disp Refills dulaglutide (TRULICITY) 1.5 mg/0.5 mL pen injector 2 mL 0 Sig: Inject 1.5 mg subcutaneously one time a week. Please approve the above prescription(s) to electronically send to [facility] pharmacy. Milagro Mendiola MA documented in this encounter [facility] [place] 01-01-2023 Note [facility] 01-01-2023 History of Presen t illness Narrative VIRTUAL VISIT PROGRESS NOTE This is a virtual visit using [employer] video visit. It required patient-provider interaction for the medical decision making as documented below. I have communicated my name and active licensure. The patient's identity and physical location were verified at the time of this visit. Either the patient or their legal installation service representative has been informed of the risks and benefits of -- and alternatives to -- treatment through a remote evaluation and consents to proceed with the evaluation remotely. Last seen by virtual visit Feb 2022 Initial immune evaluation showed elevated IgM (504) and mildly low IgG, which was last checked in 10/13. IgG at that time was 540. The patient was on prednisone at that time. She had baseline pneumococcal titers, but did not complete pneumovax and postvaccination titers She has seen other specialists including dermatology, rheumatology, and hematology She feels that symptoms have continued since last visit She has sensation of feeling unwell She will have symptoms for a few days, and then will resolve for a few weeks She has LN swelling in the axillary areas off and on Hair has been falling out She feels feverish, but does not have an elevated temperature when she checks it She has symptoms of POTS - takes metoprolol BID, but sometimes still feels like her heart is beating very hard She has body aches Since last visit she was treated for UTI/kidney infection - one episode that cleared with antibiotics. Every few months she has pain in the kidney area. UA will be normal but she has the kidney pain recurrently. 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 Would also recheck IgG and IgM at that time. She would like to consider this and wait until she is feeling better before having this done. HISTORY REVIEWED (electronic chart updated): PAST MEDICAL HISTORY Diagnosis Date Chronic pain syndrome Depression, recurrent (HCC) Diffuse cystic mastopathy H/O mammogram 11/09/2013 Hypotension, unspecified Low back pain Megaloblastic anemia due to vitamin B12 deficiency 03/04/2022 Mixed hyperlipidemia Obesity, unspecified Pain, hip Physical exam, annual 01/16/14 Pilonidal cyst with abscess Sacroiliitis (HCC) Sciatica Tobacco use disorder Vitamin B12 deficiency Vitamin D deficiency PAST SURGICAL HISTORY Procedure Laterality Date PAST SURGICAL HISTORY OF 2011 and 2012 pilonidal cyst PAST SURGICAL HISTORY OF D & C PAST SURGICAL HISTORY OF ablation FAMILY HISTORY Problem Relation Age of Onset Cancer Father stomach other (Crohn's [Other]) Mother Social History Tobacco Use Smoking status: Every Day Packs/day: 1.00 Years: 20.00 Total pack years: 20.00 Types: Cigarettes Smokeless tobacco: Never Vaping Use Vaping Use: Never used Substance Use Topics Alcohol use: No Drug use: Yes Types: Marijuana Comment: Past use of marijuana at age of 18 Current Outpatient Medications Medication Sig azaTHIOprine (IMURAN) 50 mg tablet Take 3tab daily by mouth with food. Hold if on antibiotics or ill. ergocalciferol 50,000 unit capsule (VITAMIN D2, DRISDOL) (take by mouth with food 3times a week, ONE CAPSULE ON Mondays, Fridays) FOR A TOTAL OF 8 WEEKS, then once a week thereafter. hydrOXYchloroQUINE (PLAQUENIL) 200 mg tablet TAKE 1 TAB TWICE A DAY WITH FOOD *SUNSCREEN WHILE OUTDOORS/OPHTHAMOLOGY EVERY 6-12 MONTHS WHILE ON* dulaglutide (TRULICITY) 1.5 mg/0.5 mL pen injector Inject 1.5 mg subcutaneously one time a week. DULoxetine (CYMBALTA) 20 mg capsule Take 1 capsule by mouth once daily. dulaglutide (TRULICITY) 0.75 mg/0.5 mL pen injector Inject 0.75 mg subcutaneously one time a week. predniSONE (DELTASONE) 10 mg tablet Take 40mg daily x 5days, then decrease 5mg every 5days until 10mg daily thereafter pregabalin (LYRICA) 75 mg capsule TAKE 1 CAPSULE BY MOUTH 3 TIMES A DAY metoprolol tartrate, short acting, (LOPRESSOR) 50 mg tablet Take 50 mg by mouth twice daily. CPAP/BIPAP/OTHER Type .CPAPSettings into a note to see current settings/supplies/DME information. CPAP/BIPAP/OTHER Type .CPAPSettings into a note to see current settings/supplies/DME information. folic acid 1 mg tablet Take 1 tablet by mouth once daily. simvastatin (ZOCOR) 20 mg tablet Biotin 10 mg tab 2 acyclovir (ZOVIRAX) 400 mg tablet Take 400 mg by mouth once daily. acetaminophen (TYLENOL) 500 mg tablet Take 1,000 mg by mouth. aspirin 81 mg chewable tablet Take 81 mg by mouth. ibuprofen (MOTRIN) 200 mg tablet Take 600 mg by mouth. No current facility-administered medications for this visit. ALLERGIES Allergen Reactions Bactrim [Sulfametho* GI Upset Codeine Other: See Comments Make her feel Jittery. OTHERWISE, NO SOB/WHEEZING, and NO DYSPHAGIA, NO URTICARIA, NO ANGIOEDEMA Clindamycin Unknown Patient states it was a long time ago and she did not have a severe reaction. She does not believe she is allergic, she just thinks she just experienced side effects. Doxycycline Other: See Comments Patient states it was a long time ago and she did not have a severe reaction. She does not believe she is allergic, she just thinks she just experienced side effects. Latex Rash Patient states it was a long time ago and she did not have a severe reaction. She does not believe she is allergic, she just thinks she just experienced side effects. Sulfamethoxazole-Tr* Swelling Patient states it was a long time ago and she did not have a severe reaction. She does not believe she is allergic, she just thinks she just experienced side effects. Trimethoprim Other: See Comments Patient states it was a long time ago and she did not have a severe reaction. She does not believe she is allergic, she just thinks she just experienced side effects. REVIEW OF SYSTEMS: All other ROS: negative PHYSICAL EXAMINATION: VIDEO EXAM: (if completed, performed via video enabled technology) GENERAL: alert and appropriate, in no distress SKIN: no rash noted HEAD: normocephalic, no abnormality or lesion noted EYES: no injection EARS: hearing grossly normal NOSE: external nose normal without rhinorrhea RESPIRATORY: breathing non-labored NEUROLOGIC: no obvious deficit ASSESSMENT/PLAN: 1. Elevated IgM, low IgG -she has diagnosis of lupus, and elevated IgM may be related to inflammation. She has had evaluation through hematology as well -discussed that her symptoms could be explained by her rheumatologic diagnosis; she will continue to follow with rheumatology -the low IgG is in the setting of illness and chronic prednisone use. -recommended completing the immune evaluation with receiving pneumovax and then checking post-vaccination labs. She will consider this, but wants to wait until she is feeling better to complete it. There are no Patient Instructions on file for this visit. Misty Nelson MD documented in this encounter [facility] [place] 12-18-2022 Note [facility] 12-18-2022 Miscellaneous Notes Spoke with patient this morning, 12/18/2022. Wilmer Driver APRN.TRUE Pt called operations support coordinator service last evening stating she was suppose to have a phone call with Wilmer at 330 and never received a call. Pt is still waiting (536 pm 12/17/22). Please advise Lidia Argueta RN documented in this encounter [facility] [place] 12-18-2022 History of Presen t illness Narrative Images from the original note were not included. AMBULATORY TELEPHONE VISIT Jones Haley has consented to this telephone encounter. Persons Present: Patient and myself Chief Complaint/Reason: Anemia; To review recent blood work. HPI: Patient had requested that this visit be changed to a telephone visit due to scheduling and transportation. She states that her days are hit and miss . She also states that she is struggling with kidneys . She was in contact with her PCP who was unable to get her scheduled until next week. Her PCP did start her on Keflex. She admits to not taking the ffolic acid and states that she just resumed the folic acid. She has been having heavy menses the last couple of months. She remains on prednisone 10 mg daily. Data Reviewed: Most recent labs Assessment: (D53.1) Megaloblastic anemia due to vitamin B12 deficiency (primary encounter diagnosis) (R53.82, R53.81) Chronic fatigue and malaise Plan: Patient will continue the folic acid and encouraged to take daily. She will return to the office next week as scheduled for B12 injection. At that time we will determine if we will change the frequency of the B12 injections. We will plan to see her back in 2 months for follow-up. She will have labs drawn 1 week prior to her follow-up. Total Time Spent: 21 minutes Wilmer Driver APRN.PSYCH THERAPIST NAME: Jose Carlosfrancisco javierJones CLINIC NO.: [id number] DATE OF SERVICE: October 22, 2022 (Marquis) Some elements in this clinic note that are critical to medical decision making have been carefully reviewed and included from a prior clinic note dated: August 27, 2022 (Bob) Referring Provider: Dr. Madelaine Ferris Additional Clinicians involved in Jones Haley's care: DIAGNOSIS: Multiple symptoms ASSESSMENT: 42 year old woman with generalized malaise for approximately 2 years. She has lymphadenopathy that has been biopsied in 2020 that came back negative and she reports intermittent fevers. She has had a heart cath for heart palpitations that was negative. She states that she hurts everywhere and her legs get weak she takes a long time for skin sores to heal and reports numbness around her bra line. She has an elevated IgM of unclear etiology, But is most likely reactive. On recheck, she is not anemic, iron is decreased, folate is low, IgM and IgG both decreasing. Currently on heart monitor for frequent tachycardia and palpitations. Diagnosis of sleep apnea. This could address a lot of her symptoms but hasn't seemed to improve that much since May. PLAN: B12 shot today and every 4 weeks. Continue Folic acid. Follow up in 8 Weeks - labs 1 week before. HPI: CASE HISTORY: Currently 2021 ongoing and generalized malaise with elevated IgM. 2020 lymph node biopsy from neck negative for malignancy. 2020 had a respiratory illness with dyspnea, possible bronchitis, no cough Updated Visit, October 22, 2022: Increased dose of imuran for Lupus and thinks she is starting to feel a little better Had a biopsy of her lower lip done 2 days ago at [facility] - awaiting results. B12 helps especially at beginning of the month. Might consider every 3 weeks in future Forehead is swollen. Not sure it is related to plaquenil and gets worse on days she take the full dose vs. A partial dose. Will follow dermatology regarding this. Started Trulicity. Completing steroid taper now down to 10 mg. And stable there. Updated Visit, August 27, 2022: Jones Haley returns for follow-up and B12 injection. She has missed a few B12 injections. She follows with multiple doctors including and research methods instructor, digital analytics manager, biological technical officer and PCP. She has been told they are thinking her problems are related to lupus and/or fibromyalgia. She is on medication for POTS. She states that she has been sick since 2019. She states that its constantly something . She has had intermittent chest pain episodes. She states she feels like she has fevers but does not actually have a fever. She has a strange sensation to her scalp. She has lost some hair. She states that her body is stiff and everything hurts. She states that something is wrong and just exhausted with nobody finding exactly what is wrong with her. Her physicians have recently increased her prednisone. She remains on folic acid. She has been wearing her CPAP nightly. Updated Visit, May 20, 2022: 41 yo woman with chronic fatigue and elevated IgM. skin of her forehead is swelling and red. Rec trial of zyrtec. Failed sleep study and due for CPAP setup. IgM decreasing IgG still decreased. No M-spike Updated Visit, March 18, 2022: Returns to review labs. Still having significant fatigue and pains in extremities. Sleep study pending. Heart monitor for tachycardia in place. She is not anemic although has mild iron deficiency. IgM still elevated but decreasing. Initial Visit, March 04, 2022: Jones Haley presents today Hematology and Oncology evaluation. She is a 41 year old female who presents for heme-onc opinion regarding elevated IgM and constellation of constitutional symptoms. She is here with her preschool-aged daughter. 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 She was told she had bronchitis but never had a cough. Following this she ended up with what appeared to be a cold and then since then has been having persistent and intermittent low-grade fevers with palpitations. She had a cardiac cath done for palpitations and was negative. She also noted waxing and waning lymphadenopathy in her neck and jaw and had a biopsy done approximately 1 year ago that she reports is negative. She also notes that she has poor dentition and does not like to go to the dentist. This may be a cause of this lymphadenopathy. She has an elevated sedimentation rate but this is fairly common and obesity as well as nonmalignant inflammatory conditions. On further questioning she reports snoring as well as daytime fatigue and reflux. She has gained approximately 18 pounds since she has been on and off prednisone. Causes of her elevated IgM could be related to poor dentition as well as chemical pneumonitis caused by sleep apnea due to excessive reflux. I also noted that her B12 level is relatively low. REVIEW OF SYSTEMS Per HPI and otherwise negative by full review of organ systems. ECOG PERFORMANCE STATUS: 0 PHYSICAL EXAMINATION: Vitals: [facility] 02/26/2022 There is no height or weight on file to calculate BSA. Exam limited to gross visualization where appropriate. Gen.: This is an age-appropriate patient in no acute distress. Head: Appears atraumatic with no visible lesions. Eyes: Pupils equally round and reactive to light, extraocular muscles are intact. Neck: Supple. Respiratory: Appears to be respiring comfortably. Neurologic: Nonfocal to gross visualization. Alert and oriented 3. Psychiatric: No evidence of inappropriate anxiety or depression. Skin: Visible areas of skin without rash, lesions, wounds or petechiae. ALLERGIES: ALLERGIES Allergen Reactions Bactrim [Sulfametho* GI Upset Codeine Other: See Comments Make her feel Jittery. OTHERWISE, NO SOB/WHEEZING, and NO DYSPHAGIA, NO URTICARIA, NO ANGIOEDEMA Clindamycin Unknown Patient states it was a long time ago and she did not have a severe reaction. She does not believe she is allergic, she just thinks she just experienced side effects. Doxycycline Other: See Comments Patient states it was a long time ago and she did not have a severe reaction. She does not believe she is allergic, she just thinks she just experienced side effects. Latex Rash Patient states it was a long time ago and she did not have a severe reaction. She does not believe she is allergic, she just thinks she just experienced side effects. Sulfamethoxazole-Tr* Swelling Patient states it was a long time ago and she did not have a severe reaction. She does not believe she is allergic, she just thinks she just experienced side effects. Trimethoprim Other: See Comments Patient states it was a long time ago and she did not have a severe reaction. She does not believe she is allergic, she just thinks she just experienced side effects. MEDICATIONS: azaTHIOprine (IMURAN) 50 mg tablet Take 3tab daily by mouth with food. Hold if on antibiotics or ill. ergocalciferol 50,000 unit capsule (VITAMIN D2, DRISDOL) (take by mouth with food 3times a week, ONE CAPSULE ON Mondays, Fridays) FOR A TOTAL OF 8 WEEKS, then once a week thereafter. hydrOXYchloroQUINE (PLAQUENIL) 200 mg tablet TAKE 1 TAB TWICE A DAY WITH FOOD *SUNSCREEN WHILE OUTDOORS/OPHTHAMOLOGY EVERY 6-12 MONTHS WHILE ON* dulaglutide (TRULICITY) 1.5 mg/0.5 mL pen injector Inject 1.5 mg subcutaneously one time a week. DULoxetine (CYMBALTA) 20 mg capsule Take 1 capsule by mouth once daily. dulaglutide (TRULICITY) 0.75 mg/0.5 mL pen injector Inject 0.75 mg subcutaneously one time a week. predniSONE (DELTASONE) 10 mg tablet Take 40mg daily x 5days, then decrease 5mg every 5days until 10mg daily thereafter pregabalin (LYRICA) 75 mg capsule TAKE 1 CAPSULE BY MOUTH 3 TIMES A DAY metoprolol tartrate, short acting, (LOPRESSOR) 50 mg tablet Take 50 mg by mouth twice daily. CPAP/BIPAP/OTHER Type .CPAPSettings into a note to see current settings/supplies/DME information. CPAP/BIPAP/OTHER Type .CPAPSettings into a note to see current settings/supplies/DME information. folic acid 1 mg tablet Take 1 tablet by mouth once daily. simvastatin (ZOCOR) 20 mg tablet Biotin 10 mg tab 2 acyclovir (ZOVIRAX) 400 mg tablet Take 400 mg by mouth once daily. acetaminophen (TYLENOL) 500 mg tablet Take 1,000 mg by mouth. aspirin 81 mg chewable tablet Take 81 mg by mouth. ibuprofen (MOTRIN) 200 mg tablet Take 600 mg by mouth. LABORATORY VALUES: WBC (k/uL) Date Value 12/08/2022 13.67 (H) RBC (m/uL) Date Value 12/08/2022 4.47 Hemoglobin (g/dL) Date Value 12/08/2022 13.3 Hematocrit (%) Date Value 12/08/2022 42.0 MCV (fL) Date Value 12/08/2022 94.0 MCH (pg) Date Value 12/08/2022 29.8 MCHC (g/dL) Date Value 12/08/2022 31.7 RDW-CV (%) Date Value 12/08/2022 14.6 Platelet Count (k/uL) Date Value 12/08/2022 301 MPV (fL) Date Value 12/08/2022 9.6 Glucose (mg/dL) Date Value 12/08/2022 91 BUN (mg/dL) Date Value 12/08/2022 20 Creatinine (mg/dL) Date Value 12/08/2022 0.80 Sodium (mmol/L) Date Value 12/08/2022 137 Potassium (mmol/L) Date Value 12/08/2022 3.9 Chloride (mmol/L) Date Value 12/08/2022 106 (H) CO2 (mmol/L) Date Value 12/08/2022 26 Protein, Total (g/dL) Date Value 12/08/2022 7.1 Albumin (g/dL) Date Value 12/08/2022 4.3 Calcium, Total (mg/dL) Date Value 12/08/2022 9.9 Alkaline Phosphatase (U/L) Date Value 12/08/2022 63 Bilirubin, Total (mg/dL) Date Value 12/08/2022 0.2 AST (U/L) Date Value 12/08/2022 10 (L) ALT (U/L) Date Value 12/08/2022 19 Cholesterol, Total (mg/dL) Date Value 05/21/2015 217 (H) Triglyceride (mg/dL) Date Value 05/21/2015 242 (H) DIAGNOSIS: No diagnosis found. PAST MEDICAL HISTORY Diagnosis Date Chronic pain syndrome Depression, recurrent (HCC) Diffuse cystic mastopathy H/O mammogram 11/09/2013 Hypotension, unspecified Low back pain Megaloblastic anemia due to vitamin B12 deficiency 03/04/2022 Mixed hyperlipidemia Obesity, unspecified Pain, hip Physical exam, annual 01/16/14 Pilonidal cyst with abscess Sacroiliitis (HCC) Sciatica Tobacco use disorder Vitamin B12 deficiency Vitamin D deficiency PAST SURGICAL HISTORY Procedure Laterality Date PAST SURGICAL HISTORY OF 2011 and 2013 pilonidal cyst PAST SURGICAL HISTORY OF D & C PAST SURGICAL HISTORY OF ablation Social History Tobacco Use Smoking status: Every Day Packs/day: 1.00 Years: 20.00 Total pack years: 20.00 Types: Cigarettes Smokeless tobacco: Never Vaping Use Vaping Use: Never used Substance Use Topics Alcohol use: No Drug use: Yes Types: Marijuana Comment: Past use of marijuana at age of 18 FAMILY HISTORY Problem Relation Age of Onset Cancer Father stomach other (Crohn's [Other]) Mother I spent a total of 20 minutes on the date of the service which included preparing to see the patient, [id number] patient care, completing clinical documentation, performing a medically appropriate examination, counseling and educating the patient/family/caregiver, ordering medications, tests, or procedures, and independently interpreting results (not separately reported). Jose Najera MD, CPE Hematology and Oncology Services Provided at: [place], [place] CC: Madelaine Ferris MD [employer] [address] documented in this encounter [facility] 12-16-2022 Miscellaneous Notes Pt notified and verbalizes understanding. Clerical: Please change tomorrow's appointment to a phone visit at the end of Wilmer's day. Preferred number is [phone]. In addition, pt will be in next 12/25/22 @ 1130 for her B12 shot. Please add her to the MA schedule. Thanks! Pamella Bettencourt, RN That would be okay. Have her added at the end of the day. Thanks, Wilmer Driver APRN.PSYCH THERAPIST Pt is scheduled for w/ Wilmer & B12 tomorrow. She would like to make this a telephone appointment instead and come back next week for B12. Pt had her labs drawn last week. Wilmer: Any objections to meeting w/ pt over the phone tomorrow or would you prefer we switch her to Mason's schedule? Pamella Bettencourt RN documented in this encounter [facility] 12-13-2022 Miscellaneous Notes No clinical utility or implication for a low anion gap. No other concerning findings. I hope that helps. MyChart message from pt: Hi, just got some blood work back, and I seen that the anion gap is low at only 5 and the abs mono is high. I was wondering if that is concerning? Online it says that low anion gap is rare, and usually some other blood work is off on mine ,but not those so was a little concerned.Please let me know if its anything to worry about. Thank you MASON/HM: please review and advise Enma Hamm RN documented in this encounter [facility] 11-24-2022 Miscellaneous Notes Please call patient Thank you for the update. May try 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/imuran 3tabs daily. Please continue plaquenil/hydroxychloroquine 2tabs daily. New script sent to pharmacy. Notify office if medication change is not tolerated. Recheck nonfasting labs in at the end the month, orders have been placed. Thank you. Patient's request for medication is as follows: Requested Prescriptions Signed Prescriptions Disp Refills azaTHIOprine (IMURAN) 50 mg tablet 90 tablet 3 Sig: Take 3tab daily by mouth with food. Hold if on antibiotics or ill. Prescription(s) as above. Please process accordingly. Lynne Ni MD documented in this encounter [facility] 11-19-2022 Nurse Note Patient Identification confirmed: yes. Injection given and documented on JUL per provider order. Margret Cuenca documented in this encounter [facility] 10-29-2022 Note [facility] 10-22-2022 Note [facility] 10-22-2022 Nurse Note Patient Identification confirmed: yes. Injection given and documented on JUL per provider order. Stacy Gutiérrez Ma documented in this encounter [facility] 10-22-2022 Instructions Jose Najera MD - 10/22/2022 11:43 AM EDT B12 Shot today and every 4 weeks. Continue Folic acid. Follow up in 8 Weeks - labs 1 week before. documented in this encounter [facility] 10-22-2022 History of Presen t illness Narrative Images from the original note were not included. NAME: Jones Haley CLINIC NO.: [id number] DATE OF SERVICE: October 22, 2022 (Marquis) Some elements in this clinic note that are critical to medical decision making have been carefully reviewed and included from a prior clinic note dated: August 27, 2022 (Bob) Referring Provider: Dr. Madelaine Ferris Additional Clinicians involved in Jones Haley's care: DIAGNOSIS: Multiple symptoms ASSESSMENT: 42 year old woman with generalized malaise for approximately 2 years. She has lymphadenopathy that has been biopsied in 2020 that came back negative and she reports intermittent fevers. She has had a heart cath for heart palpitations that was negative. She states that she hurts everywhere and her legs get weak she takes a long time for skin sores to heal and reports numbness around her bra line. She has an elevated IgM of unclear etiology, But is most likely reactive. On recheck, she is not anemic, iron is decreased, folate is low, IgM and IgG both decreasing. Currently on heart monitor for frequent tachycardia and palpitations. Diagnosis of sleep apnea. This could address a lot of her symptoms but hasn't seemed to improve that much since May. PLAN: B12 Shot today and every 4 weeks. Continue Folic acid. Follow up in 8 Weeks - labs 1 week before. HPI: CASE HISTORY: Currently 2021 ongoing and generalized malaise with elevated IgM. 2020 lymph node biopsy from neck negative for malignancy. 2020 had a respiratory illness with dyspnea, possible bronchitis, no cough Updated Visit, October 22, 2022: Increased dose of imuran for Lupus and thinks she is starting to feel a little better Had a biopsy of her lower lip done 2 days ago at [facility] - awaiting results. B12 helps especially at beginning of the month. Might consider every 3 weeks in future Forehead is swollen. Not sure it is related to plaquenil and gets worse on days she take the full dose vs. A partial dose. Will follow dermatology regarding this. Started Trulicity. Completing steroid taper now down to 10 mg. And stable there. Updated Visit, August 27, 2022: Jones Haley returns for follow-up and B12 injection. She has missed a few B12 injections. She follows with multiple doctors including and research methods instructor, digital analytics manager, biological technical officer and PCP. She has been told they are thinking her problems are related to lupus and/or fibromyalgia. She is on medication for POTS. She states that she has been sick since 2019. She states that its constantly something . She has had intermittent chest pain episodes. She states she feels like she has fevers but does not actually have a fever. She has a strange sensation to her scalp. She has lost some hair. She states that her body is stiff and everything hurts. She states that something is wrong and just exhausted with nobody finding exactly what is wrong with her. Her physicians have recently increased her prednisone. She remains on folic acid. She has been wearing her CPAP nightly. Updated Visit, May 20, 2022: 41 yo woman with chronic fatigue and elevated IgM. skin of her forehead is swelling and red. Rec trial of zyrtec. Failed sleep study and due for CPAP setup. IgM decreasing IgG still decreased. No M-spike Updated Visit, March 18, 2022: Returns to review labs. Still having significant fatigue and pains in extremities. Sleep study pending. Heart monitor for tachycardia in place. She is not anemic although has mild iron deficiency. IgM still elevated but decreasing. Initial Visit, March 04, 2022: Jones Haley presents today Hematology and Oncology evaluation. She is a 41 year old female who presents for heme-onc opinion regarding elevated IgM and constellation of constitutional symptoms. She is here with her preschool-aged daughter. 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 She was told she had bronchitis but never had a cough. Following this she ended up with what appeared to be a cold and then since then has been having persistent and intermittent low-grade fevers with palpitations. She had a cardiac cath done for palpitations and was negative. She also noted waxing and waning lymphadenopathy in her neck and jaw and had a biopsy done approximately 1 year ago that she reports is negative. She also notes that she has poor dentition and does not like to go to the dentist. This may be a cause of this lymphadenopathy. She has an elevated sedimentation rate but this is fairly common and obesity as well as nonmalignant inflammatory conditions. On further questioning she reports snoring as well as daytime fatigue and reflux. She has gained approximately 18 pounds since she has been on and off prednisone. Causes of her elevated IgM could be related to poor dentition as well as chemical pneumonitis caused by sleep apnea due to excessive reflux. I also noted that her B12 level is relatively low. REVIEW OF SYSTEMS Per HPI and otherwise negative by full review of organ systems. ECOG PERFORMANCE STATUS: 0 PHYSICAL EXAMINATION: Vitals: BP 132/55 Pulse 78 Temp (Src) 97 (Temporal) Resp 16 Ht 5' 7.008 (1.70m) Wt 266 lb 3.2 oz (120.7kg) SpO2 98% LMP 02/26/2022 BMI 41.68 kg/(m^2). Body surface area is 2.39 meters squared. Exam limited to gross visualization where appropriate. Gen.: This is an age-appropriate patient in no acute distress. Head: Appears atraumatic with no visible lesions. Eyes: Pupils equally round and reactive to light, extraocular muscles are intact. Neck: Supple. Respiratory: Appears to be respiring comfortably. Neurologic: Nonfocal to gross visualization. Alert and oriented 3. Psychiatric: No evidence of inappropriate anxiety or depression. Skin: Visible areas of skin without rash, lesions, wounds or petechiae. ALLERGIES: ALLERGIES Allergen Reactions Bactrim [Sulfametho* GI Upset Codeine Other: See Comments Make her feel Jittery. OTHERWISE, NO SOB/WHEEZING, and NO DYSPHAGIA, NO URTICARIA, NO ANGIOEDEMA Clindamycin Unknown Patient states it was a long time ago and she did not have a severe reaction. She does not believe she is allergic, she just thinks she just experienced side effects. Doxycycline Other: See Comments Patient states it was a long time ago and she did not have a severe reaction. She does not believe she is allergic, she just thinks she just experienced side effects. Latex Rash Patient states it was a long time ago and she did not have a severe reaction. She does not believe she is allergic, she just thinks she just experienced side effects. Sulfamethoxazole-Tr* Swelling Patient states it was a long time ago and she did not have a severe reaction. She does not believe she is allergic, she just thinks she just experienced side effects. Trimethoprim Other: See Comments Patient states it was a long time ago and she did not have a severe reaction. She does not believe she is allergic, she just thinks she just experienced side effects. MEDICATIONS: dulaglutide (TRULICITY) 0.75 mg/0.5 mL pen injector Inject 0.75 mg subcutaneously one time a week. azaTHIOprine (IMURAN) 50 mg tablet Take 2tab daily by mouth with food. Hold if on antibiotics or ill. predniSONE (DELTASONE) 10 mg tablet Take 40mg daily x 5days, then decrease 5mg every 5days until 10mg daily thereafter pregabalin (LYRICA) 75 mg capsule TAKE 1 CAPSULE BY MOUTH 3 TIMES A DAY metoprolol tartrate, short acting, (LOPRESSOR) 50 mg tablet Take 50 mg by mouth twice daily. ergocalciferol 50,000 unit capsule (VITAMIN D2, DRISDOL) (take by mouth with food 3times a week, ONE CAPSULE ON Mondays, Fridays) FOR A TOTAL OF 8 WEEKS, then once a week thereafter. CPAP/BIPAP/OTHER Type .CPAPSettings into a note to see current settings/supplies/DME information. CPAP/BIPAP/OTHER Type .CPAPSettings into a note to see current settings/supplies/DME information. folic acid 1 mg tablet Take 1 tablet by mouth once daily. simvastatin (ZOCOR) 20 mg tablet Biotin 10 mg tab 2 acyclovir (ZOVIRAX) 400 mg tablet Take 400 mg by mouth once daily. hydrOXYchloroQUINE (PLAQUENIL) 200 mg tablet Take one tab by mouth twice a day with food. Sunscreen when outdoors. See ophthalmology every 6-12months on med. acetaminophen (TYLENOL) 500 mg tablet Take 1,000 mg by mouth. aspirin 81 mg chewable tablet Take 81 mg by mouth. ibuprofen (MOTRIN) 200 mg tablet Take 600 mg by mouth. DULoxetine (CYMBALTA) 20 mg capsule Take 1 capsule by mouth once daily. LABORATORY VALUES: WBC (k/uL) Date Value 10/15/2022 11.93 (H) RBC (m/uL) Date Value 10/15/2022 4.49 Hemoglobin (g/dL) Date Value 10/15/2022 13.1 Hematocrit (%) Date Value 10/15/2022 40.8 MCV (fL) Date Value 10/15/2022 90.9 MCH (pg) Date Value 10/15/2022 29.2 MCHC (g/dL) Date Value 10/15/2022 32.1 RDW-CV (%) Date Value 10/15/2022 14.6 Platelet Count (k/uL) Date Value 10/15/2022 295 MPV (fL) Date Value 10/15/2022 9.7 Glucose (mg/dL) Date Value 10/15/2022 157 (H) BUN (mg/dL) Date Value 10/15/2022 16 Creatinine (mg/dL) Date Value 10/15/2022 0.72 Sodium (mmol/L) Date Value 10/15/2022 137 Potassium (mmol/L) Date Value 10/15/2022 3.8 Chloride (mmol/L) Date Value 10/15/2022 104 CO2 (mmol/L) Date Value 10/15/2022 21 (L) Protein, Total (g/dL) Date Value 10/15/2022 6.8 10/15/2022 6.7 Albumin (g/dL) Date Value 10/15/2022 4.0 Calcium, Total (mg/dL) Date Value 10/15/2022 9.6 Alkaline Phosphatase (U/L) Date Value 10/15/2022 59 Bilirubin, Total (mg/dL) Date Value 10/15/2022 0.2 AST (U/L) Date Value 10/15/2022 10 (L) ALT (U/L) Date Value 10/15/2022 19 Cholesterol, Total (mg/dL) Date Value 05/21/2015 217 (H) Triglyceride (mg/dL) Date Value 05/21/2015 242 (H) DIAGNOSIS: (D53.1) Megaloblastic anemia due to vitamin B12 deficiency (primary encounter diagnosis) (R70.0) Elevated sed rate (R76.8) High total serum IgM (R53.82, R53.81) Chronic fatigue and malaise (G47.33) Obstructive sleep apnea syndrome PAST MEDICAL HISTORY Diagnosis Date Chronic pain syndrome Depression, recurrent (HCC) Diffuse cystic mastopathy H/O mammogram 11/09/2013 Hypotension, unspecified Low back pain Megaloblastic anemia due to vitamin B12 deficiency 03/04/2022 Mixed hyperlipidemia Obesity, unspecified Pain, hip Physical exam, annual 01/16/14 Pilonidal cyst with abscess Sacroiliitis (HCC) Sciatica Tobacco use disorder Vitamin B12 deficiency Vitamin D deficiency PAST SURGICAL HISTORY Procedure Laterality Date PAST SURGICAL HISTORY OF 2011 and 2012 pilonidal cyst PAST SURGICAL HISTORY OF D & C PAST SURGICAL HISTORY OF ablation Social History Tobacco Use Smoking status: Every Day Packs/day: 1.00 Years: 20.00 Pack years: 20.00 Types: Cigarettes Smokeless tobacco: Never Vaping Use Vaping Use: Never used Substance Use Topics Alcohol use: No Drug use: Yes Types: Marijuana Comment: Past use of marijuana at age of 18 FAMILY HISTORY Problem Relation Age of Onset Cancer Father stomach other (Crohn's [Other]) Mother I spent a total of 20 minutes on the date of the service which included preparing to see the patient, [id number] patient care, completing clinical documentation, performing a medically appropriate examination, counseling and educating the patient/family/caregiver, ordering medications, tests, or procedures, and independently interpreting results (not separately reported). Jose Najera MD, CPE Hematology and Oncology Services Provided at: [place], [place] CC: Maedlaine Ferris MD [address] [facility] [address] documented in this encounter [facility] 09-24-2022 Nurse Note Patient Identification confirmed: yes. Injection given and documented on JUL per provider order. Stacy Gutiérrez Ma documented in this encounter [facility] 09-11-2022 Note HNO ID: [id number] Author: Joselito Joshi Service: ? Author Type: ? Type: Progress Notes Filed: 09/11/2022 9:10 AM Note Text: Called patient and patient stated she will call back and schedule. Joselito Joshi [facility] 09-08-2022 Miscellaneous Notes Pharmacy-Reviewed Medication History Patient Name:.Jones Haley : 1980 Patient Contact Attempt: First attempt Adherence Packing Program Accepted? No, patient does not wish to participate. Patient is not eligible for adherence packaging because PCP is not within [facility]. Patient wishes to continue at [facility] since medication bottles will look the same and then she can pick-up the medications when she needs them. Stacy Hernandez September 08, 2022 2:28 PM [facility] [phone] documented in this encounter [facility] 09-07-2022 Note [facility] 09-07-2022 History of Presen t illness Narrative Images from the original note were not included. [facility] Virtual Follow-Up Appointment Assessment Jones Haley is a 41 year old female with a PMH of Chronic Pain, Chronic Fatigue, Fibromyalgia, HLD, B12 def, Elevated ESR, anemia, lupus, depression, CHRISTIAN +, bit d def., Obesity (BMI 38.84) who is here to improve pain and weight with lifestyle and integrative medicine. Plan Will try trulicity if approved by insurance company and will have pharmacy reach out to see if adherence packaging would be helpful. Pt will check with PCP to see if she can do extended release BB. She will also start LDN or Cymbalta. Diagnoses and all orders for this visit: Obesity, Class III, BMI >= 40 - dulaglutide (TRULICITY) 0.75 mg/0.5 mL pen injector; Inject 0.75 mg subcutaneously one time a week. Polypharmacy - RX CONSULT TO OUTPATIENT PHARMACY Pre-diabetes - dulaglutide (TRULICITY) 0.75 mg/0.5 mL pen injector; Inject 0.75 mg subcutaneously one time a week. F/U: 6-8 weeks SUBJECTIVE: Jones Haley is a 41 year old female with a pertinent PMH as listed above presents for a lifestyle consult follow-up. Last Plan Lifestyle Goals deferred, follow up consults and cymbalta. Will tackle nutritoin, sleep, PA, and stress at next visit. HSAT- at least subhash JOSE RAFAEL- started CPAP in May- Saw, (Misty Nelson) Tilt Table- not performed- PCP upped medication to 100 BID and this is helping. Sometimes needs to take it 3x a day. Weight has gained 35-40 lbs in the last 3-4 months. Not able to exercise with the POTS. REVIEW OF SYSTEMS: Review of Systems Constitutional: Negative for fever. Respiratory: Negative for shortness of breath. Gastrointestinal: Negative for constipation, diarrhea, nausea and vomiting. Psychiatric/Behavioral: Negative for behavioral problems, dysphoric mood and sleep disturbance. PHYSICAL EXAMINATION: Physical Exam I spent a total of 45 minutes on the date of the service which included preparing to see the patient, [id number] patient care, completing clinical documentation, performing a medically appropriate examination, counseling and educating the patient/family/caregiver, ordering medications, tests, or procedures, and communicating with other HCPs (not separately reported). I have communicated my name and active licensure. The patient's identity and physical location were verified at the time of this visit. Either the patient or their legal installation service representative has been informed of the risks and benefits of -- and alternatives to -- treatment through a remote evaluation and consents to proceed with the evaluation remotely. Christie Phan MD, MA, [facility] Lifestyle Medicine Specialist documented in this encounter [facility] 09-07-2022 Nurse Note Called pt to do intake for video visit pt unavailable lft vm msg sent my chart. Milagro Mendiola MA documented in this encounter [facility] 08-31-2022 Miscellaneous Notes called [facility] pharmacy - pharmacy had 1 refill remaining no action needed from our office documented in this encounter [facility] 08-27-2022 Note [facility] 08-27-2022 Nurse Note Patient Identification confirmed: yes. Injection given and documented on JUL per provider order. Stacy Gutiérrez Ma documented in this encounter [facility] 08-27-2022 History of Presen t illness Narrative Images from the original note were not included. NAME: Jones Haley [facility] NO.: [id number] DATE OF SERVICE: August 27, 2022 (Bob) Some elements in this clinic note that are critical to medical decision making have been carefully reviewed and included from a prior clinic note dated: May 20, 2022. (Dr. Najera) Referring Provider: Dr. Madelaine Ferris Additional Clinicians involved in Jones Haley's care: DIAGNOSIS: Multiple symptoms ASSESSMENT: 41 year old woman with generalized malaise for approximately 2 years. She has lymphadenopathy that has been biopsied in 2020 that came back negative and she reports intermittent fevers. She has had a heart cath for heart palpitations that was negative. She states that she hurts everywhere and her legs get weak she takes a long time for skin sores to heal and reports numbness around her bra line. She has an elevated IgM of unclear etiology, But is most likely reactive. On recheck, she is not anemic, iron is decreased, folate is low, IgM and IgG both decreasing. Currently on heart monitor for frequent tachycardia and palpitations. Diagnosis of sleep apnea will address a lot once it is treated. PLAN: B12 Shot today and every 4 weeks. Continue Folic acid. Follow up in 8 Weeks - labs 1 week before. HPI: CASE HISTORY: Currently 2021 ongoing and generalized malaise with elevated IgM. 2020 lymph node biopsy from neck negative for malignancy. 2020 had a respiratory illness with dyspnea, possible bronchitis, no cough Updated Visit, August 27, 2022: Jones Haley returns for follow-up and B12 injection. She has missed a few B12 injections. She follows with multiple doctors including and research methods instructor, digital analytics manager, biological technical officer and PCP. She has been told they are thinking her problems are related to lupus and/or fibromyalgia. She is on medication for POTS. She states that she has been sick since 2019. She states that its constantly something . She has had intermittent chest pain episodes. She states she feels like she has fevers but does not actually have a fever. She has a strange sensation to her scalp. She has lost some hair. She states that her body is stiff and everything hurts. She states that something is wrong and just exhausted with nobody finding exactly what is wrong with her. Her physicians have recently increased her prednisone. She remains on folic acid. She has been wearing her CPAP nightly. Updated Visit, May 20, 2022: 41 yo woman with chronic fatigue and elevated IgM. skin of her forehead is swelling and red. Rec trial of zyrtec. Failed sleep study and due for CPAP setup. IgM decreasing IgG still decreased. No M-spike Updated Visit, March 18, 2022: Returns to review labs. Still having significant fatigue and pains in extremities. Sleep study pending. Heart monitor for tachycardia in place. She is not anemic although has mild iron deficiency. IgM still elevated but decreasing. Initial Visit, March 04, 2022: Jones Haley presents today Hematology and Oncology evaluation. She is a 41 year old female who presents for heme-onc opinion regarding elevated IgM and constellation of constitutional symptoms. She is here with her preschool-aged daughter. 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 She was told she had bronchitis but never had a cough. Following this she ended up with what appeared to be a cold and then since then has been having persistent and intermittent low-grade fevers with palpitations. She had a cardiac cath done for palpitations and was negative. She also noted waxing and waning lymphadenopathy in her neck and jaw and had a biopsy done approximately 1 year ago that she reports is negative. She also notes that she has poor dentition and does not like to go to the dentist. This may be a cause of this lymphadenopathy. She has an elevated sedimentation rate but this is fairly common and obesity as well as nonmalignant inflammatory conditions. On further questioning she reports snoring as well as daytime fatigue and reflux. She has gained approximately 18 pounds since she has been on and off prednisone. Causes of her elevated IgM could be related to poor dentition as well as chemical pneumonitis caused by sleep apnea due to excessive reflux. I also noted that her B12 level is relatively low. REVIEW OF SYSTEMS Per HPI and otherwise negative by full review of organ systems. ECOG PERFORMANCE STATUS: 0 PHYSICAL EXAMINATION: Vitals: BP 117/55 Pulse 63 Temp (Src) 97.7 (Temporal) Resp 16 Ht 5' 7.008 (1.70m) Wt 261 lb 9.6 oz (118.7kg) SpO2 96% LMP 02/26/2022 BMI 40.96 kg/(m^2). Body surface area is 2.37 meters squared. Exam limited to gross visualization where appropriate due to COVID-19. Gen.: This is an age-appropriate patient in no acute distress. Obese. Head: Appears atraumatic with no visible lesions. Eyes: Pupils equally round and reactive to light, extraocular muscles are intact. Neck: Supple. Mouth: Masked. Respiratory: Appears to be respiring comfortably. Neurologic: Nonfocal to gross visualization. Alert and oriented 3. Psychiatric: No evidence of inappropriate anxiety or depression. Skin: Visible areas of skin without rash, lesions, wounds or petechiae. ALLERGIES: ALLERGIES Allergen Reactions Bactrim [Sulfametho* GI Upset Codeine Other: See Comments Make her feel Jittery. OTHERWISE, NO SOB/WHEEZING, and NO DYSPHAGIA, NO URTICARIA, NO ANGIOEDEMA Clindamycin Unknown Patient states it was a long time ago and she did not have a severe reaction. She does not believe she is allergic, she just thinks she just experienced side effects. Doxycycline Other: See Comments Patient states it was a long time ago and she did not have a severe reaction. She does not believe she is allergic, she just thinks she just experienced side effects. Latex Rash Patient states it was a long time ago and she did not have a severe reaction. She does not believe she is allergic, she just thinks she just experienced side effects. Sulfamethoxazole-Tr* Swelling Patient states it was a long time ago and she did not have a severe reaction. She does not believe she is allergic, she just thinks she just experienced side effects. Trimethoprim Other: See Comments Patient states it was a long time ago and she did not have a severe reaction. She does not believe she is allergic, she just thinks she just experienced side effects. MEDICATIONS: azaTHIOprine (IMURAN) 50 mg tablet Take 2tab daily by mouth with food. Hold if on antibiotics or ill. predniSONE (DELTASONE) 10 mg tablet Take 40mg daily x 5days, then decrease 5mg every 5days until 10mg daily thereafter pregabalin (LYRICA) 75 mg capsule TAKE 1 CAPSULE BY MOUTH 3 TIMES A DAY metoprolol tartrate, short acting, (LOPRESSOR) 50 mg tablet Take 50 mg by mouth twice daily. ergocalciferol 50,000 unit capsule (VITAMIN D2, DRISDOL) (take by mouth with food 3times a week, ONE CAPSULE ON Mondays, Fridays) FOR A TOTAL OF 8 WEEKS, then once a week thereafter. CPAP/BIPAP/OTHER Type .CPAPSettings into a note to see current settings/supplies/DME information. CPAP/BIPAP/OTHER Type .CPAPSettings into a note to see current settings/supplies/DME information. folic acid 1 mg tablet Take 1 tablet by mouth once daily. simvastatin (ZOCOR) 20 mg tablet Biotin 10 mg tab 2 DULoxetine (CYMBALTA) 20 mg capsule Take 1 capsule by mouth once daily. acyclovir (ZOVIRAX) 400 mg tablet Take 400 mg by mouth once daily. hydrOXYchloroQUINE (PLAQUENIL) 200 mg tablet Take one tab by mouth twice a day with food. Sunscreen when outdoors. See ophthalmology every 6-12months on med. acetaminophen (TYLENOL) 500 mg tablet Take 1,000 mg by mouth. aspirin 81 mg chewable tablet Take 81 mg by mouth. ibuprofen (MOTRIN) 200 mg tablet Take 600 mg by mouth. LABORATORY VALUES: Hemoglobin (g/dL) Date Value 08/18/2022 13.1 05/21/2015 12.8 Hematocrit (%) Date Value 08/18/2022 41.1 05/21/2015 39.3 WBC (k/uL) Date Value 08/18/2022 14.72 05/21/2015 8.30 Platelet Count (k/uL) Date Value 08/18/2022 309 05/21/2015 262 DIAGNOSIS: (D53.1) Megaloblastic anemia due to vitamin B12 deficiency (primary encounter diagnosis) (R70.0) Elevated sed rate (R76.8) High total serum IgM (R53.82, R53.81) Chronic fatigue and malaise (G47.33) JOSE RAFAEL (obstructive sleep apnea) PAST MEDICAL HISTORY Diagnosis Date Chronic pain syndrome Depression, recurrent (HCC) Diffuse cystic mastopathy H/O mammogram 11/09/2013 Hypotension, unspecified Low back pain Megaloblastic anemia due to vitamin B12 deficiency 03/04/2022 Mixed hyperlipidemia Obesity, unspecified Pain, hip Physical exam, annual 01/16/14 Pilonidal cyst with abscess Sacroiliitis (HCC) Sciatica Tobacco use disorder Vitamin B12 deficiency Vitamin D deficiency PAST SURGICAL HISTORY Procedure Laterality Date PAST SURGICAL HISTORY OF 2011 and 2012 pilonidal cyst PAST SURGICAL HISTORY OF D & C PAST SURGICAL HISTORY OF ablation Social History Tobacco Use Smoking status: Every Day Packs/day: 1.00 Years: 20.00 Pack years: 20.00 Types: Cigarettes Smokeless tobacco: Never Vaping Use Vaping Use: Never used Substance Use Topics Alcohol use: No Drug use: Yes Types: Marijuana Comment: Past use of marijuana at age of 18 FAMILY HISTORY Problem Relation Age of Onset Cancer Father stomach other (Crohn's [Other]) Mother Wilmer Bob, MANAGER COUNTRY.PSYCH THERAPIST Hematology and Oncology Services Provided at: [place], [place] CC: Madelaine Ferris MD [address] [facility] [address] I spent a total of 30 minutes on the date of the service which included preparing to see the patient, [id number] patient care, completing clinical documentation, obtaining and/or reviewing separately obtained history, performing a medically appropriate examination, counseling and educating the patient/family/caregiver, ordering medications, tests, or procedures, independently interpreting results (not separately reported), and communicating results to the patient/family/caregiver. documented in this encounter [facility] 08-19-2022 Miscellaneous Notes -noted MyChart message read by patient 08/19/22 . Last read by Jones Haley at 3:33 PM on 08/19/2022 Please Call patient if MyChart note not read to review results/released to My Chart if tests completed at F: Improved/ mildly high normal inflammatory test- will monitor. Improved/mildly low vitamin b12- take over the counter 0227-1395 mcg daily. Improved/ normal rest of rheum labs. Take once a week vitamin D script with food. May try 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 2tabs daily if agreeable. New script sent to pharmacy. Notify office if medication change is not tolerated. Recheck nonfasting labs in 1month, orders have been placed. Happy to further review and discuss at follow up visit. Continue rest of treatment plan per instructions at last office visit. Thank you. 08/18/22 hgh esr 25 (23);low vitamin b12-325;normal crp 0.3, uric acid 3.8, vitamin D 33.1; Patient's request for medication is as follows: Requested Prescriptions Signed Prescriptions Disp Refills azaTHIOprine (IMURAN) 50 mg tablet 60 tablet 3 Sig: Take 2tab daily by mouth with food. Hold if on antibiotics or ill. Authorizing Provider: LYNNE NI Prescription(s) as above. Please process accordingly. Lynne Ni MD documented in this encounter [facility] 08-18-2022 Miscellaneous Notes [facility] read by patient. Please call patient. Thank you for the update. Sorry to hear about your discomfort. May increase prednisone for the flare. May restart/increase lyrica if agreeable. New script sent to pharmacy. Notify office if medication change is not tolerated. Recheck nonfasting labs in 08/2022, orders have been placed. Hope you feel better soon! Warm regards, :) Patient's request for medication is as follows: Requested Prescriptions Signed Prescriptions Disp Refills predniSONE (DELTASONE) 10 mg tablet 120 tablet 1 Sig: Take 40mg daily x 5days, then decrease 5mg every 5days until 10mg daily thereafter pregabalin (LYRICA) 75 mg capsule 270 capsule 1 Sig: TAKE 1 CAPSULE BY MOUTH 3 TIMES A DAY Prescription(s) as above. Please process accordingly. Lynne Ni MD documented in this encounter [facility] 08-10-2022 Miscellaneous Notes [facility] requesting refill, patient never started according to the chart and I have not seen her in follow-up. [facility] request for the following refill(s): Requested Prescriptions Pending Prescriptions Disp Refills DULoxetine (CYMBALTA) 20 mg capsule [Pharmacy Med Name: DULOXETINE HCL DR 20 MG CAP] 30 capsule 2 Sig: TAKE 1 CAPSULE BY MOUTH ONCE DAILY Please review and advise. Jami Everett Cma documented in this encounter [facility] 07-27-2022 Instructions Timmy Heck APRN.PSYCH THERAPIST - 07/27/2022 9:12 PM EST Images from the original note were not included. Your most recent body mass index (BMI) that we have on record is 40.56 kg/m2. Obstructive sleep apnea (JOSE RAFAEL) worsens with an increase in weight; reduction in weight may improve or resolve your JOSE RAFAEL. If you are not already seeking treatment, there are resources available at the [facility] such as a nutrition consultation or referral to weight management programs at our [facility]. Please let us know if we can assist with a referral. - Continue CPAP at 5-15 cmH2O. - Remember to clean your mask and equipment regularly, as directed. - You should be eligible for new supplies approximately every 3-6 months, depending on your insurance coverage. Contact your [employer] (DME) company for new supplies. -Your insurance requires compliance with CPAP, which is at least 4 hours per night for 70% of the time. - Your insurance also requires at least yearly follow ups to continue to pay for CPAP supplies. - Encourage healthy lifestyle with adequate sleep (7-8 hours), diet and exercise. - Avoid driving when drowsy. Would recommend that if you are dozing off while driving, that you do not drive until your sleepiness is appropriately treated. - Avoid medications or substances that can relax the airway muscles (alcohol, benzodiazepines, and opioids). - Follow up in 6 months. PAP Supply Guidelines Below are the guidelines for reordering your supplies. You will be responsible for your deductible, co-payments, and out of pocket expenses. Item Medicare & Commercial Insurance Medicaid & HCAP Nasal Mask (no headgear) 1 every 3 months 1 per year Nasal Mask Cushion 1 every month 2 per year Full Face Mask (no headgear) 1 every 3 months 1 per year Full Face Mask Cushion 1 every month *Self-Pay Nasal Pillows 2 every month 2 per year Headgear 1 every 6 months 1 per year Chin Strap 1 every 6 months 2 per year Tubing 1 every 3 months 1 per year Filters: Reusable 1 every 6 months 4 per year Filters: Disposable 2 every month 1 per month Humidifier Chamber(disposable) 1 every 6 months *Self-Pay Any appointments can be scheduled through the central scheduling system for the [facility] at [phone]. [facility] now offers direct scheduling for patients to schedule appointments. Virtual visits are also available. If not covered by your insurance, there is a 35% discount. Please contact your insurance to determine coverage. Call the office at [phone], option #5 for questions. documented in this encounter [facility] 07-27-2022 Note [facility] 07-27-2022 History of Presen t illness Narrative Images from the original note were not included. [facility] Virtual Visit Follow up/ Established patient visit Date of last visit : 04/13/2022 IMPRESSION/PLAN: G47.33 JOSE RAFAEL (obstructive sleep apnea) (primary encounter diagnosis) R06.83 Snoring R40.0 Somnolence, daytime E66.9 Obesity, Class II, BMI 35-39.9 Discussed the home sleep test results -Discussed the pathophysiology of obstructive sleep apnea -Untreated sleep apnea is associated with a variety of consequences, including, but not limited to hypertension, heart disease, stroke, obesity, and daytime sleepiness that can affect normal daytime functioning. Because of these consequences, treatment of sleep apnea is recommended. -Treatment options for sleep apnea, including positive airway pressure (PAP) therapy, surgery, oral appliance and conservative measures (avoidance of alcohol, sedative medications and sleeping in the back position, management of nasal obstruction and weight loss) -Counseled in regards to CPAP therapy. - Will start Auto CPAP 5-15 cmH2O with a Nasal mask. - I will have a prescription sent to a [employer] company - [employer] who will be calling you in the next 1-2 weeks or so. Please call them directly or us if you do not hear from them in this time frame. - Will request formal mask fitting - You should be eligible for new supplies approximately every 3-6 months, depending on your insurance coverage. - If your mask doesn't fit well, call the [employer] company before 30 days are up to get a new mask without an additional charge. - Insurance requires regular usage and periodic office follow ups for PAP therapy, to continue to cover supplies. Have advised to maintain a sleep/wake diary- reports frequent daytime naps, with days where she may spend > 12 hours in bed. If hypersomnia persists after AHI normalized will consider additional testing. Although today she has an EPSS of 4. Tips for good sleep hygiene shared in MyChart. - Follow up in 2 months in the office. Recommend scheduling this appointment now to ensure the best time for you. [facility] on 04/13/22 CONSULT TO SLEEP MEDICINE - ADULT CPAP/BIPAP/OTHER PAP THERAPY ORDER Lawanda Miranda MD Interval history : Here for follow up for sleep apnea management. SLEEP APNEA Sleep apnea type : JOSE RAFAEL Most Recent Apnea-Hypopnea Index (AHI): 5.3 Treatment : PAP therapy DME: [facility] DME fax: [phone] DME ph: [phone] PAP History: Current PAP settin-15 cm H2O. Uses AutoPAP nightly. Difficulties with AutoPAP: None Reviewed objective PAP compliance data: Mask type: nasal pillow interface Mask issues: none Uses humidity: Yes, distilled water There is a perceived benefit by the patient: better sleep SLEEP HYGIENE QUESTIONS: She does not have a scheduled bedtime. Estimated total sleep time ( in a 24 hour period of time) : 12 hrs Naps : 2 hrs PATIENT-ENTERED QUESTIONNAIRE SLEEP SCORES Sleep Questions 07/23/2022 Reason for visit: Sleep apnea, Excessive daytime sleepiness Average hours slept in 24 hours: 12 Average hours of CPAP per night: 5 Percent of nights CPAP used at least 4 hours: 80 Accidents or near accidents due to drowsy drivin [place] Sleepiness Scale 04/12/2022 07/23/2022 Score 4 (No daytime sleepiness) 8 (No daytime sleepiness) PROMIS CAT Sleep Disturbance 04/12/2022 07/23/2022 PROMIS Sleep Disturbance T-Score 62 (moderate) 54 (within normal limits) Insomnia Severity Index 04/12/2022 Score 17 PHQ-9 04/12/2022 07/23/2022 Score 7 8 PROMIS Global Health - (T-Scores - the mean of general population = 50. Five points is a clinically meaningful difference.) 03/10/2022 05/18/2022 05/19/2022 Physical T-Score 29.6 29.6 29.6 Mental T-Score 43.5 43.5 43.5 ALLERGIES Allergen Reactions Bactrim [Sulfametho* GI Upset Codeine Other: See Comments Make her feel Jittery. OTHERWISE, NO SOB/WHEEZING, and NO DYSPHAGIA, NO URTICARIA, NO ANGIOEDEMA Clindamycin Unknown Patient states it was a long time ago and she did not have a severe reaction. She does not believe she is allergic, she just thinks she just experienced side effects. Doxycycline Other: See Comments Patient states it was a long time ago and she did not have a severe reaction. She does not believe she is allergic, she just thinks she just experienced side effects. Latex Rash Patient states it was a long time ago and she did not have a severe reaction. She does not believe she is allergic, she just thinks she just experienced side effects. Sulfamethoxazole-Tr* Swelling Patient states it was a long time ago and she did not have a severe reaction. She does not believe she is allergic, she just thinks she just experienced side effects. Trimethoprim Other: See Comments Patient states it was a long time ago and she did not have a severe reaction. She does not believe she is allergic, she just thinks she just experienced side effects. CURRENT MEDICATIONS: metoprolol tartrate, short acting, (LOPRESSOR) 50 mg tablet Take 50 mg by mouth twice daily. predniSONE (DELTASONE) 10 mg tablet Take 10 mg by mouth once daily. azaTHIOprine (IMURAN) 50 mg tablet Take 1tab daily by mouth with food. Hold if on antibiotics or ill. ergocalciferol 50,000 unit capsule (VITAMIN D2, DRISDOL) (take by mouth with food 3times a week, ONE CAPSULE ON Mondays, Fridays) FOR A TOTAL OF 8 WEEKS, then once a week thereafter. CPAP/BIPAP/OTHER Type .CPAPSettings into a note to see current settings/supplies/DME information. CPAP/BIPAP/OTHER Type .CPAPSettings into a note to see current settings/supplies/DME information. folic acid 1 mg tablet Take 1 tablet by mouth once daily. simvastatin (ZOCOR) 20 mg tablet Biotin 10 mg tab 2 DULoxetine (CYMBALTA) 20 mg capsule Take 1 capsule by mouth once daily. pregabalin (LYRICA) 75 mg capsule TAKE 1 CAPSULE BY MOUTH 3 TIMES A DAY FOR 30 DAYS acyclovir (ZOVIRAX) 400 mg tablet Take 400 mg by mouth once daily. hydrOXYchloroQUINE (PLAQUENIL) 200 mg tablet Take one tab by mouth twice a day with food. Sunscreen when outdoors. See ophthalmology every 6-12months on med. acetaminophen (TYLENOL) 500 mg tablet Take 1,000 mg by mouth. aspirin 81 mg chewable tablet Take 81 mg by mouth. ibuprofen (MOTRIN) 200 mg tablet Take 600 mg by mouth. REVIEW OF SYSTEMS: GENERAL: feeling well without fatigue, no recent change in weight, no fever, activity level is normal PHYSICAL EXAMINATION: VIDEO EXAM: (if completed, performed via video enabled technology) GENERAL: alert and appropriate, in no distress and well-hydrated, well nourished, interactive IMPRESSION/PLAN: Jose Rafael (obstructive sleep apnea) (primary encounter diagnosis) 41 year old female with PMH of JOSE RAFAEL, Fibromyalgia, HLD, SLE, Depression and Obesity presents for a virtual sleep apnea visit. - She is compliant with PAP therapy and reports benefits from treatment. - We reviewed PAP compliance report. Residual AHI 0.9. - Stable. Continue at current settings of 5-15 cmH2O. - Discussed the pathophysiology of sleep apnea and risks of not treating including cardiac, stroke and drowsy driving risks. - Discussed compliance parameters with minimum goal for PAP usage>70% of nights >4 hours/night. - Encourage regular change and maintenance of supplies. - Encourage to avoid drowsy driving. - Encourage proper sleep hygiene and to obtain 7-8 hours sleep daily. - As part of the evaluation today, the patient record has been reviewed. - Patient has been advised to call with any questions or change in symptoms. - Return Visit in 6 months. Timmy Heck APRN.TRUE I spent a total of 30 minutes on the date of the service which included preparing to see the patient, completing clinical documentation, counseling and educating the patient/family/caregiver and ordering medications, tests, or procedures. documented in this encounter [facility] 07-24-2022 Miscellaneous Notes Patient called today. : 1980 Allergies: Bactrim [Sulfamethoxazole], Codeine, Clindamycin, Doxycycline, Latex, Sulfamethoxazole-Trimethoprim, and Trimethoprim Reason for call: Patient calling. Due to changing her lab appointment to coincide with being on her medications for 1 month, the orders placed to be done by 07/15/22 will no longer be valid. Please place orders again and call the patient at above verified phone to advise when complete. Thank you. Patient last appointment: 05/20/2022 The patients preferred pharmacy has been captured for this encounter? not asked ANALILIA [facility] Patient Operations Support Team (POST) Please note: Please do not re-route phone encounters back to this agent, please send to appropriate office pool. 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 documented in this encounter [facility] 07-22-2022 Miscellaneous Notes [facility] message sent documented in this encounter [facility] 05-20-2022 History of Presen t illness Narrative Patient Identification confirmed: yes. Injection given and documented on JUL per provider order. Kenzie Shannon documented in this encounter [facility] 05-20-2022 Miscellaneous Notes Addended by: JOSE NAJERA on: 05/20/2022 02:27 PM Modules accepted: Orders documented in this encounter [facility] 05-20-2022 Instructions Jose Najera MD - 05/20/2022 2:23 PM EST B12 Shot Today and every 4 weeks Get fit for CPAP mask and setting this 05/28/2021 Continue Folic acid. RTC in 8 Weeks - labs 1 week before. documented in this encounter [facility] 05-20-2022 History of Presen t illness Narrative Images from the original note were not included. NAME: Jones Haley CLINIC NO.: [id number] DATE OF SERVICE: May 20, 2022 ([facility]) Some elements in this clinic note that are critical to medical decision making have been carefully reviewed and included from a prior clinic note dated: March 18, 2022 ([facility]) Referring Provider: Madelaine Ferris Additional Clinicians involved in Jones Haley's care: DIAGNOSIS: Multiple symptoms ASSESSMENT: 41 year old woman with generalized malaise for approximately 2 years. She has lymphadenopathy that has been biopsied in 2020 that came back negative and she reports intermittent fevers. She has had a heart cath for heart palpitations that was negative. She states that she hurts everywhere and her legs get weak she takes a long time for skin sores to heal and reports numbness around her bra line. She has an elevated IgM of unclear etiology, But is most likely reactive. On recheck, she is not anemic, iron is decreased, folate is low, IgM and IgG both decreasing. Currently on heart monitor for frequent tachycardia and palpitations. Diagnosis of sleep apnea will address a lot once it is treated. PLAN: B12 Shot Today and every 4 weeks Get fit for CPAP mask and setting this 05/28/2021 Continue Folic acid. RTC in 8 Weeks - labs 1 week before. HPI: CASE HISTORY: Currently 2021 ongoing and generalized malaise with elevated IgM. 2020 lymph node biopsy from neck negative for malignancy. 2020 had a respiratory illness with dyspnea, possible bronchitis, no cough Updated Visit, May 20, 2022: 41 yo woman with chronic fatigue and elevated IgM. skin of her forehead is swelling and red. Rec trial of zyrtec. Failed sleep study and due for CPAP setup. IgM decreasing IgG still decreased. No M-spike Updated Visit, March 18, 2022: Returns to review labs. Still having significant fatigue and pains in extremities. Sleep study pending. Heart monitor for tachycardia in place. She is not anemic although has mild iron deficiency. IgM still elevated but decreasing. Initial Visit, March 04, 2022: Jones Haley presents today Hematology and Oncology evaluation. She is a 41 year old female who presents for heme-onc opinion regarding elevated IgM and constellation of constitutional symptoms. She is here with her preschool-aged daughter. 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 She was told she had bronchitis but never had a cough. Following this she ended up with what appeared to be a cold and then since then has been having persistent and intermittent low-grade fevers with palpitations. She had a cardiac cath done for palpitations and was negative. She also noted waxing and waning lymphadenopathy in her neck and jaw and had a biopsy done approximately 1 year ago that she reports is negative. She also notes that she has poor dentition and does not like to go to the dentist. This may be a cause of this lymphadenopathy. She has an elevated sedimentation rate but this is fairly common and obesity as well as nonmalignant inflammatory conditions. On further questioning she reports snoring as well as daytime fatigue and reflux. She has gained approximately 18 pounds since she has been on and off prednisone. Causes of her elevated IgM could be related to poor dentition as well as chemical pneumonitis caused by sleep apnea due to excessive reflux. I also noted that her B12 level is relatively low. REVIEW OF SYSTEMS Per HPI and otherwise negative by full review of organ systems. ECOG PERFORMANCE STATUS: 0 PHYSICAL EXAMINATION: Vitals: BP 127/70 Pulse 93 Temp (Src) 97.7 (Temporal) Resp 16 Ht 5' 7.008 (1.70m) Wt 0 lb (0.0kg) SpO2 97% LMP 02/26/2022 Body surface area is 2.32 meters squared. Exam limited to gross visualization where appropriate due to COVID-19. Gen.: This is an age-appropriate patient in no acute distress. Obese. Head: Appears atraumatic with no visible lesions. Eyes: Pupils equally round and reactive to light, extraocular muscles are intact. Neck: Supple. Mouth: Masked. Respiratory: Appears to be respiring comfortably. Neurologic: Nonfocal to gross visualization. Alert and oriented 3. Psychiatric: No evidence of inappropriate anxiety or depression. Skin: Visible areas of skin without rash, lesions, wounds or petechiae. ALLERGIES: ALLERGIES Allergen Reactions Bactrim [Sulfametho* GI Upset Codeine Other: See Comments Make her feel Jittery. OTHERWISE, NO SOB/WHEEZING, and NO DYSPHAGIA, NO URTICARIA, NO ANGIOEDEMA Clindamycin Unknown Patient states it was a long time ago and she did not have a severe reaction. She does not believe she is allergic, she just thinks she just experienced side effects. Doxycycline Other: See Comments Patient states it was a long time ago and she did not have a severe reaction. She does not believe she is allergic, she just thinks she just experienced side effects. Latex Rash Patient states it was a long time ago and she did not have a severe reaction. She does not believe she is allergic, she just thinks she just experienced side effects. Sulfamethoxazole-Tr* Swelling Patient states it was a long time ago and she did not have a severe reaction. She does not believe she is allergic, she just thinks she just experienced side effects. Trimethoprim Other: See Comments Patient states it was a long time ago and she did not have a severe reaction. She does not believe she is allergic, she just thinks she just experienced side effects. MEDICATIONS: ergocalciferol 50,000 unit capsule (VITAMIN D2, DRISDOL) (take by mouth with food 3times a week, ONE CAPSULE ON Mondays, Fridays) FOR A TOTAL OF 8 WEEKS, then once a week thereafter. CPAP/BIPAP/OTHER Type .CPAPSettings into a note to see current settings/supplies/DME information. CPAP/BIPAP/OTHER Type .CPAPSettings into a note to see current settings/supplies/DME information. folic acid 1 mg tablet Take 1 tablet by mouth once daily. naltrexone capsule 1 mg TAKE ONE CAPSULE BY MOUTH DAILY simvastatin (ZOCOR) 20 mg tablet Biotin 10 mg tab 2 DULoxetine (CYMBALTA) 20 mg capsule Take 1 capsule by mouth once daily. pregabalin (LYRICA) 75 mg capsule TAKE 1 CAPSULE BY MOUTH 3 TIMES A DAY FOR 30 DAYS acyclovir (ZOVIRAX) 400 mg tablet Take 400 mg by mouth once daily. hydrOXYchloroQUINE (PLAQUENIL) 200 mg tablet Take one tab by mouth twice a day with food. Sunscreen when outdoors. See ophthalmology every 6-12months on med. predniSONE (DELTASONE) 5 mg tablet Day 1=6tabs with food, Day 2=5tabs, Day 3=4tabs, Day 4=3tabs, Day 5=2tabs, Day 6=1tab, No NSAIDs on med acetaminophen (TYLENOL) 500 mg tablet Take 1,000 mg by mouth. aspirin 81 mg chewable tablet Take 81 mg by mouth. ibuprofen (MOTRIN) 200 mg tablet Take 600 mg by mouth. nitroglycerin sublingual (NITROQUICK) 0.4 mg SL tablet Dissolve 0.4 mg under the tongue. metoprolol tartrate, short acting, (LOPRESSOR) 25 mg tablet Take 25 mg by mouth twice daily. LABORATORY VALUES: WBC (k/uL) Date Value 05/12/2022 14.00 (H) RBC (m/uL) Date Value 05/12/2022 4.55 Hemoglobin (g/dL) Date Value 05/12/2022 13.3 Hematocrit (%) Date Value 05/12/2022 40.5 MCV (fL) Date Value 05/12/2022 89.0 MCH (pg) Date Value 05/12/2022 29.2 MCHC (g/dL) Date Value 05/12/2022 32.8 RDW-CV (%) Date Value 05/12/2022 14.6 Platelet Count (k/uL) Date Value 05/12/2022 318 MPV (fL) Date Value 05/12/2022 9.4 Glucose (mg/dL) Date Value 05/12/2022 160 (H) BUN (mg/dL) Date Value 05/12/2022 13 Creatinine (mg/dL) Date Value 05/12/2022 0.66 Sodium (mmol/L) Date Value 05/12/2022 137 Potassium (mmol/L) Date Value 05/12/2022 3.2 (L) Chloride (mmol/L) Date Value 05/12/2022 104 CO2 (mmol/L) Date Value 05/12/2022 23 Protein, Total (g/dL) Date Value 05/12/2022 6.8 05/12/2022 6.5 Albumin (g/dL) Date Value 05/12/2022 4.2 Calcium, Total (mg/dL) Date Value 05/12/2022 9.4 Alkaline Phosphatase (U/L) Date Value 05/12/2022 66 Bilirubin, Total (mg/dL) Date Value 05/12/2022 0.2 AST (U/L) Date Value 05/12/2022 11 (L) ALT (U/L) Date Value 05/12/2022 30 Cholesterol, Total (mg/dL) Date Value 05/21/2015 217 (H) Triglyceride (mg/dL) Date Value 05/21/2015 242 (H) DIAGNOSIS: (R76.8) High total serum IgM (primary encounter diagnosis) Plan: B2 MICROGLOBULIN B, CBC + DIFF, COMP METABOLIC PANEL, LD LACTATE DEHYDRO, PHOSPHORUS INORGANIC, PROTEIN ELECTROPHORESIS SERUM W/INTERP, MONOCLONAL PROTEIN, SERUM (BLOOD), URIC ACID BLOOD, CALCIUM IONIZED BLOOD, KAPPA/FARMER,FREE,SER (R70.0) Elevated sed rate (R40.0) Somnolence, daytime (G47.33) JOSE RAFAEL (obstructive sleep apnea) PAST MEDICAL HISTORY Diagnosis Date Chronic pain syndrome Depression, recurrent (HCC) Diffuse cystic mastopathy H/O mammogram 11/09/2013 Hypotension, unspecified Low back pain Megaloblastic anemia due to vitamin B12 deficiency 03/04/2022 Mixed hyperlipidemia Obesity, unspecified Pain, hip Physical exam, annual 01/16/14 Pilonidal cyst with abscess Sacroiliitis (HCC) Sciatica Tobacco use disorder Vitamin B12 deficiency Vitamin D deficiency PAST SURGICAL HISTORY Procedure Laterality Date PAST SURGICAL HISTORY OF 2011 and 2012 pilonidal cyst PAST SURGICAL HISTORY OF D & C PAST SURGICAL HISTORY OF ablation Social History Tobacco Use Smoking status: Every Day Packs/day: 1.00 Years: 20.00 Pack years: 20.00 Types: Cigarettes Smokeless tobacco: Never Vaping Use Vaping Use: Never used Substance Use Topics Alcohol use: No Drug use: Yes Types: Marijuana Comment: Past use of marijuana at age of 18 FAMILY HISTORY Problem Relation Age of Onset Cancer Father stomach other (Crohn's [Other]) Mother I spent a total of 30 minutes on the date of the service which included preparing to see the patient, [id number] patient care, completing clinical documentation, performing a medically appropriate examination, counseling and educating the patient/family/caregiver, ordering medications, tests, or procedures, and independently interpreting results (not separately reported). Jose Najera MD, CPE Hematology and Oncology Services Provided at: [place], [place] CC: Jose Najera [address] [place] [address] [place] [address] Madelaine Ferris MD, [address] [place] [id number] CC: Madelaine Ferris MD [address] [place], [place] [id number] documented in this encounter [facility] 05-05-2022 Miscellaneous Notes Faxed order, office notes, demographics, and sleep study to: DME name: Josh Seo DME fax: [phone] DME ph: [phone] Confirmation received. documented in this encounter [facility] 05-05-2022 Miscellaneous Notes [employer] message sent documented in this encounter [facility] 05-05-2022 Miscellaneous Notes [facility] Home [facility] received your PAP order. Due to a major [employer] recall and manufacturing shortage, we are unable to fulfill the request to provide your patient with a CPAP/BIPAP machine at this time. We will keep the request on file and provide when inventory is available or you can forward the order to another DME provider such as [facility], [facility] or [facility]. Caring for our patients is our top priority and we apologize for this delay. Thank you for your patience during this time. [phone] #1 documented in this encounter [facility] 04-24-2022 Miscellaneous Notes After review of Jones's referral, it was determined that the visit needed to be in person to allow for detailed physical exam for connective tissue disorder evaluation. I called today to discuss her concerns about in-person visit for connective tissue disorder evaluation. She did not report hypermobility, however, she noted that her allergy doctor has noted concern for EDS. Her digital analytics manager has told her that she has Lupus. Based on her history, I noted we can offer in-person evaluations for herself and/or her son to see if any genetic testing may be useful. I validated and provided support on the difficulty with her ambulation and transport concerns. I noted [facility] does not have other locations and only available at [address] [place]. I offered social work and/or transport assistance for the visit. She declined this and will discuss with her regarding the transport. She verbalized understanding the reasons for in-person evaluation recommended. She has the [facility] line and will call to reschedule for an in-person evaluation at [facility]. Luann Lance MD Cinder Worker, Associate Staff [facility] documented in this encounter [facility] 04-22-2022 Miscellaneous Notes Reached out to Jones to discuss her son's history of genetic testing She explained her son had genetic testing for Marfan, but did not know any of the details. She has does not have a copy of the report. Let her know I would be sending her an email with a release of records form, which she can send to her son to complete. Once she sends it back, we will request a copy of the report. Confirmed patient's email [email or web address] Eliza Licea Genetic Counselor Machine Staker documented in this encounter [facility] 03-31-2022 Miscellaneous Notes [facility] pharmacy electronically requests the following refill(s) Requested Prescriptions Pending Prescriptions Disp Refills DULoxetine (CYMBALTA) 20 mg capsule [Pharmacy Med Name: DULOXETINE HCL DR 20 MG CAP] 30 capsule 2 Sig: TAKE 1 CAPSULE BY MOUTH ONCE DAILY Renate Lawrence MA documented in this encounter [facility] 03-30-2022 Miscellaneous Notes LVM and sent MyChart regarding Dr. Nelson's directive. Please see mychart message. Please contact patient and confirm that she has not previously received pneumovax. If not, then she should receive the pneumovax (can be done through her PCP if she prefers). She would need post-vaccination labs with us after at least 6 weeks. Thanks. Misty Nelson MD documented in this encounter [facility] 03-30-2022 Miscellaneous Notes LVM and sent MyChart regarding Dr. Nelson's directive. documented in this encounter [facility] 03-18-2022 Instructions Jose Najera MD - 03/18/2022 11:16 AM EDT Referral for sleep study pending Start on Folic acid. RTC in 8 Weeks - labs 1 week before. documented in this encounter [facility] 03-18-2022 History of Presen t illness Narrative Images from the original note were not included. NAME: Jones Haley CLINIC NO.: [id number] DATE OF SERVICE: March 18, 2022 ([facility]) Some elements in this clinic note that are critical to medical decision making have been carefully reviewed and included from a prior clinic note dated: March 04, 2022 ([facility]) Referring Provider: Madelaine Ferris Additional Clinicians involved in Jones Torres Tera's care: DIAGNOSIS: Multiple symptoms ASSESSMENT: 41 year old woman with generalized malaise for approximately 2 years. She has lymphadenopathy that has been biopsied in 2020 that came back negative and she reports intermittent fevers. She has had a heart cath for heart palpitations that was negative. She states that she hurts everywhere and her legs get weak she takes a long time for skin sores to heal and reports numbness around her bra line. She has an elevated IgM of unclear etiology, But is most likely reactive. On recheck, she is not anemic, iron is decreased, folate is low, IgM and IgG both decreasing. Currently on heart monitor for frequent tachycardia and palpitations. PLAN: Referral for sleep study pending Start on Folic acid. RTC in 8 Weeks - labs 1 week before. HPI: CASE HISTORY: Currently 2021 ongoing and generalized malaise with elevated IgM. 2020 lymph node biopsy from neck negative for malignancy. 2019 had a respiratory illness with dyspnea, possible bronchitis, no cough Updated Visit, March 18, 2022: Returns to review labs. Still having significant fatigue and pains in extremities. Sleep study pending. Heart monitor for tachycardia in place. She is not anemic although has mild iron deficiency. IgM still elevated but decreasing. Initial Visit, March 04, 2022: Jones Haley presents today Hematology and Oncology evaluation. She is a 41 year old female who presents for heme-onc opinion regarding elevated IgM and constellation of constitutional symptoms. She is here with her preschool-aged daughter. 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 She was told she had bronchitis but never had a cough. Following this she ended up with what appeared to be a cold and then since then has been having persistent and intermittent low-grade fevers with palpitations. She had a cardiac cath done for palpitations and was negative. She also noted waxing and waning lymphadenopathy in her neck and jaw and had a biopsy done approximately 1 year ago that she reports is negative. She also notes that she has poor dentition and does not like to go to the dentist. This may be a cause of this lymphadenopathy. She has an elevated sedimentation rate but this is fairly common and obesity as well as nonmalignant inflammatory conditions. On further questioning she reports snoring as well as daytime fatigue and reflux. She has gained approximately 18 pounds since she has been on and off prednisone. Causes of her elevated IgM could be related to poor dentition as well as chemical pneumonitis caused by sleep apnea due to excessive reflux. I also noted that her B12 level is relatively low. REVIEW OF SYSTEMS Per HPI and otherwise negative by full review of organ systems. ECOG PERFORMANCE STATUS: 0 PHYSICAL EXAMINATION: Vitals: BP 145/49 Pulse 86 Temp (Src) 97.8 (Temporal) Resp 16 Ht 5' 7.008 (1.70m) Wt 250 lb (113.4kg) SpO2 98% LMP 02/26/2022 BMI 39.15 kg/(m^2). Body surface area is 2.32 meters squared. Exam limited to gross visualization where appropriate due to COVID-19. Gen.: This is an age-appropriate patient in no acute distress. Obese. Head: Appears atraumatic with no visible lesions. Eyes: Pupils equally round and reactive to light, extraocular muscles are intact. Neck: Supple. Mouth: Masked. Respiratory: Appears to be respiring comfortably. Neurologic: Nonfocal to gross visualization. Alert and oriented 3. Psychiatric: No evidence of inappropriate anxiety or depression. Skin: Visible areas of skin without rash, lesions, wounds or petechiae. ALLERGIES: ALLERGIES Allergen Reactions Bactrim [Sulfametho* GI Upset Codeine Other: See Comments Make her feel Jittery. OTHERWISE, NO SOB/WHEEZING, and NO DYSPHAGIA, NO URTICARIA, NO ANGIOEDEMA Clindamycin Unknown Patient states it was a long time ago and she did not have a severe reaction. She does not believe she is allergic, she just thinks she just experienced side effects. Doxycycline Other: See Comments Patient states it was a long time ago and she did not have a severe reaction. She does not believe she is allergic, she just thinks she just experienced side effects. Latex Rash Patient states it was a long time ago and she did not have a severe reaction. She does not believe she is allergic, she just thinks she just experienced side effects. Sulfamethoxazole-Tr* Swelling Patient states it was a long time ago and she did not have a severe reaction. She does not believe she is allergic, she just thinks she just experienced side effects. Trimethoprim Other: See Comments Patient states it was a long time ago and she did not have a severe reaction. She does not believe she is allergic, she just thinks she just experienced side effects. MEDICATIONS: naltrexone capsule 1 mg TAKE ONE CAPSULE BY MOUTH DAILY simvastatin (ZOCOR) 20 mg tablet Biotin 10 mg tab 2 DULoxetine (CYMBALTA) 20 mg capsule Take 1 capsule by mouth once daily. (Patient not taking: Reported on 03/10/2022) ergocalciferol 50,000 unit capsule (VITAMIN D2, DRISDOL) (take by mouth with food 2times a week, ONE CAPSULE ON Mondays, Fridays) FOR A TOTAL OF 8 WEEKS, then once a week thereafter. pregabalin (LYRICA) 75 mg capsule TAKE 1 CAPSULE BY MOUTH 3 TIMES A DAY FOR 30 DAYS acyclovir (ZOVIRAX) 400 mg tablet Take 400 mg by mouth once daily. (Patient not taking: Reported on 03/10/2022) hydrOXYchloroQUINE (PLAQUENIL) 200 mg tablet Take one tab by mouth twice a day with food. Sunscreen when outdoors. See ophthalmology every 6-12months on med. predniSONE (DELTASONE) 5 mg tablet Day 1=6tabs with food, Day 2=5tabs, Day 3=4tabs, Day 4=3tabs, Day 5=2tabs, Day 6=1tab, No NSAIDs on med acetaminophen (TYLENOL) 500 mg tablet Take 1,000 mg by mouth. aspirin 81 mg chewable tablet Take 81 mg by mouth. ibuprofen (MOTRIN) 200 mg tablet Take 600 mg by mouth. nitroglycerin sublingual (NITROQUICK) 0.4 mg SL tablet Dissolve 0.4 mg under the tongue. metoprolol tartrate, short acting, (LOPRESSOR) 25 mg tablet Take 25 mg by mouth twice daily. LABORATORY VALUES: WBC (k/uL) Date Value 03/17/2022 11.04 (H) RBC (m/uL) Date Value 03/17/2022 4.58 Hemoglobin (g/dL) Date Value 03/17/2022 13.0 Hematocrit (%) Date Value 03/17/2022 40.5 MCV (fL) Date Value 03/17/2022 88.4 MCH (pg) Date Value 03/17/2022 28.4 MCHC (g/dL) Date Value 03/17/2022 32.1 RDW-CV (%) Date Value 03/17/2022 14.6 Platelet Count (k/uL) Date Value 03/17/2022 314 MPV (fL) Date Value 03/17/2022 9.9 Glucose (mg/dL) Date Value 03/04/2022 100 (H) BUN (mg/dL) Date Value 03/04/2022 12 Creatinine (mg/dL) Date Value 03/04/2022 0.69 Sodium (mmol/L) Date Value 03/04/2022 138 Potassium (mmol/L) Date Value 03/04/2022 3.9 Chloride (mmol/L) Date Value 03/04/2022 103 CO2 (mmol/L) Date Value 03/04/2022 28 Protein, Total (g/dL) Date Value 03/04/2022 7.0 03/04/2022 6.9 Albumin (g/dL) Date Value 03/04/2022 4.3 Calcium, Total (mg/dL) Date Value 03/04/2022 9.3 Alkaline Phosphatase (U/L) Date Value 03/04/2022 70 Bilirubin, Total (mg/dL) Date Value 03/04/2022 0.2 AST (U/L) Date Value 03/04/2022 12 (L) ALT (U/L) Date Value 03/04/2022 26 Cholesterol, Total (mg/dL) Date Value 05/21/2015 217 (H) Triglyceride (mg/dL) Date Value 05/21/2015 242 (H) DIAGNOSIS: (D53.1) Megaloblastic anemia due to vitamin B12 deficiency (primary encounter diagnosis) Plan: B2 MICROGLOBULIN B, CBC + DIFF, COMP METABOLIC PANEL, LD LACTATE DEHYDRO, PHOSPHORUS INORGANIC, PROTEIN ELECTROPHORESIS SERUM W/INTERP, MONOCLONAL PROTEIN, SERUM (BLOOD), URIC ACID BLOOD, CALCIUM IONIZED BLOOD, FERRITIN BLD, IRON + TIBC (R76.8) High total serum IgM Plan: B2 MICROGLOBULIN B, CBC + DIFF, COMP METABOLIC PANEL, LD LACTATE DEHYDRO, PHOSPHORUS INORGANIC, PROTEIN ELECTROPHORESIS SERUM W/INTERP, MONOCLONAL PROTEIN, SERUM (BLOOD), URIC ACID BLOOD, CALCIUM IONIZED BLOOD, FERRITIN BLD, IRON + TIBC PAST MEDICAL HISTORY Diagnosis Date Chronic pain syndrome Depression, recurrent (HCC) Diffuse cystic mastopathy H/O mammogram 11/09/2013 Hypotension, unspecified Low back pain Megaloblastic anemia due to vitamin B12 deficiency 03/04/2022 Mixed hyperlipidemia Obesity, unspecified Pain, hip Physical exam, annual 01/16/14 Pilonidal cyst with abscess Sacroiliitis (HCC) Sciatica Tobacco use disorder Vitamin B12 deficiency Vitamin D deficiency PAST SURGICAL HISTORY Procedure Laterality Date PAST SURGICAL HISTORY OF 2011 and 2012 pilonidal cyst PAST SURGICAL HISTORY OF D & C PAST SURGICAL HISTORY OF ablation Social History Tobacco Use Smoking status: Every Day Packs/day: 1.00 Years: 20.00 Pack years: 20.00 Types: Cigarettes Smokeless tobacco: Never Vaping Use Vaping Use: Never used Substance Use Topics Alcohol use: No Drug use: Yes Types: Marijuana Comment: Past use of marijuana at age of 18 FAMILY HISTORY Problem Relation Age of Onset Cancer Father stomach other (Crohn's [Other]) Mother I spent a total of 25 minutes on the date of the service which included preparing to see the patient, [id number] patient care, completing clinical documentation, performing a medically appropriate examination, counseling and educating the patient/family/caregiver, ordering medications, tests, or procedures, and independently interpreting results (not separately reported). Jose Najera MD, CPE Hematology and Oncology Services Provided at: [place], [place] CC: Madelaine Ferris MD [id number] [facility] [id number] documented in this encounter [facility] 03-10-2022 History of Presen t illness Narrative VIRTUAL VISIT PROGRESS NOTE This is a virtual visit using [employer] video visit. It required patient-provider interaction for the medical decision making as documented below. Jones Haley is a 41 year old female seen for initial evaluation of elevated immunoglobulins. 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 She usually has temp 97F She has time when she feels hot and temp will be 99 Does not go above 99 Goes on for 3-4 days and then resolves; last one was 1.5 weeks of symptoms Occurs intermittently It is not periodic She was treated with plaquenil and lyrica Lyrica did help the burning pain that she has in her back She was treated with acyclovir for CMV through neurology She is better when she is on prednisone She was treated with metoprolol for feeling of CP 2 years ago Went to the ED She had heart cath and Holter monitor Tachycardia when she walks around and is doing activity Raises to 120 and feels that she has to lay down Usually resolves with lying down - but can last They are doing to re-do the Holter She feels that the metoprolol helps, but only lasts about 5 hours and then she feels that the HR increases again 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 [place] PCP is running the Holter and echo Feels like the blood rushes to her head No syncope She feels fatigued and has to take a lot of naps When symptoms first started she had a sore throat and sob the next day when she was at PT for SI joint pain Went to and was told she had bronchitis - no cough Resolved and then was ok for 2 weeks, and then the symptoms started She has been on plaquenil -not sure if it is helping overall, but did help the rash She has been very cautious because of COVID and has not been going anywhere Works from home and does not visit her friends in person She wears a mask when she goes anywhere She has not been getting sick frequently She was having kidney pain and negative UA - was treated anyway for UTI with antibiotic and felt better Also has pressure under her ribs recently that comes and goes She has history of recurrent bronchitis - a few episodes in her lifetime; treated with antibiotics Pneumonia once around age 26; not hospitalized; treated with antibiotics Dx with CXR When she had the back pain, was initially was told it was pleurisy but she did not have pain with breathing No sinusitis or otitis frequently No other major infections No IV antibiotics No meningitis or bloodstream infections She had childhood vaccine Tetanus - not sure of when she had last one - does not think that she had it as an adult POTS was discussed but was not pursued yet Lives in [place] She did have LN biopsy in the neck a few years ago She has not had LN biopsy of the axillary LN Her PCP is treating her with prednisone 5mg once daily She has used augmentin or keflex or cefdinir for the LN swelling Not sure if it helped Spleen has not been assessed Son had spontaneous pneumothorax - son had genetic test negative for Marfan's Could consider genetics referral HISTORY REVIEWED (electronic chart updated): PAST MEDICAL HISTORY Diagnosis Date Chronic pain syndrome Depression, recurrent (HCC) Diffuse cystic mastopathy H/O mammogram 11/09/2013 Hypotension, unspecified Low back pain Megaloblastic anemia due to vitamin B12 deficiency 03/04/2022 Mixed hyperlipidemia Obesity, unspecified Pain, hip Physical exam, annual 01/16/14 Pilonidal cyst with abscess Sacroiliitis (HCC) Sciatica Tobacco use disorder Vitamin B12 deficiency Vitamin D deficiency PAST SURGICAL HISTORY Procedure Laterality Date PAST SURGICAL HISTORY OF 2011 and 2012 pilonidal cyst PAST SURGICAL HISTORY OF D & C PAST SURGICAL HISTORY OF ablation FAMILY HISTORY Problem Relation Age of Onset Cancer Father stomach other (Crohn's [Other]) Mother Social History Tobacco Use Smoking status: Every Day Packs/day: 1.00 Years: 20.00 Pack years: 20.00 Types: Cigarettes Smokeless tobacco: Never Vaping Use Vaping Use: Never used Substance Use Topics Alcohol use: No Drug use: Yes Types: Marijuana Comment: Past use of marijuana at age of 18 Current Outpatient Medications Medication Sig ergocalciferol 50,000 unit capsule (VITAMIN D2, DRISDOL) (take by mouth with food 2times a week, ONE CAPSULE ON Mondays, Fridays) FOR A TOTAL OF 8 WEEKS, then once a week thereafter. pregabalin (LYRICA) 75 mg capsule TAKE 1 CAPSULE BY MOUTH 3 TIMES A DAY FOR 30 DAYS hydrOXYchloroQUINE (PLAQUENIL) 200 mg tablet Take one tab by mouth twice a day with food. Sunscreen when outdoors. See ophthalmology every 6-12months on med. predniSONE (DELTASONE) 5 mg tablet Day 1=6tabs with food, Day 2=5tabs, Day 3=4tabs, Day 4=3tabs, Day 5=2tabs, Day 6=1tab, No NSAIDs on med acetaminophen (TYLENOL) 500 mg tablet Take 1,000 mg by mouth. aspirin 81 mg chewable tablet Take 81 mg by mouth. ibuprofen (MOTRIN) 200 mg tablet Take 600 mg by mouth. nitroglycerin sublingual (NITROQUICK) 0.4 mg SL tablet Dissolve 0.4 mg under the tongue. metoprolol tartrate, short acting, (LOPRESSOR) 25 mg tablet Take 25 mg by mouth twice daily. folic acid 1 mg tablet Take 1 tablet by mouth once daily. naltrexone capsule 1 mg TAKE ONE CAPSULE BY MOUTH DAILY simvastatin (ZOCOR) 20 mg tablet Biotin 10 mg tab 2 DULoxetine (CYMBALTA) 20 mg capsule Take 1 capsule by mouth once daily. acyclovir (ZOVIRAX) 400 mg tablet Take 400 mg by mouth once daily. No current facility-administered medications for this visit. ALLERGIES Allergen Reactions Bactrim [Sulfametho* GI Upset Codeine Other: See Comments Make her feel Jittery. OTHERWISE, NO SOB/WHEEZING, and NO DYSPHAGIA, NO URTICARIA, NO ANGIOEDEMA Clindamycin Unknown Patient states it was a long time ago and she did not have a severe reaction. She does not believe she is allergic, she just thinks she just experienced side effects. Doxycycline Other: See Comments Patient states it was a long time ago and she did not have a severe reaction. She does not believe she is allergic, she just thinks she just experienced side effects. Latex Rash Patient states it was a long time ago and she did not have a severe reaction. She does not believe she is allergic, she just thinks she just experienced side effects. Sulfamethoxazole-Tr* Swelling Patient states it was a long time ago and she did not have a severe reaction. She does not believe she is allergic, she just thinks she just experienced side effects. Trimethoprim Other: See Comments Patient states it was a long time ago and she did not have a severe reaction. She does not believe she is allergic, she just thinks she just experienced side effects. REVIEW OF SYSTEMS: All other ROS: negative PHYSICAL EXAMINATION: VIDEO EXAM: (if completed, performed via video enabled technology) GENERAL: alert and appropriate, in no distress SKIN: no rash noted HEAD: normocephalic, no abnormality or lesion noted EYES: no injection EARS: hearing grossly normal NOSE: external nose normal without rhinorrhea RESPIRATORY: breathing non-labored NEUROLOGIC: no obvious deficit ASSESSMENTPLAN: 1. Elevated IgM, poor wound healing -will check baseline immune evaluation -continue to see rheum and ID for other symptoms -genetics consult due to FH of spontaneous pneumothorax 2. Elevated heartrate -consider POTS; will refer if needed There are no Patient Instructions on file for this visit. Misty Nelson MD documented in this encounter [facility] [place] 03-09-2022 History of Past i llness Narrative Problem Noted Date Diagnosed Date Resolved Date Obesity, Class II, BMI 35-39.9 03/09/2022 03/10/2023 Obesity (BMI 30-39.9) 05/31/20142016 documented as of this encounter (statuses as of 03/10/2023) [address] History of Past illness Narrative* Problem Noted Date Diagnosed Date Resolved Date Obesity, Class II, BMI 35-39.9 03/09/2022 03/10/2023 Obesity (BMI 30-39.9) 05/31/20142016 documented as of this encounter (statuses as of 03/11/2023) [address]22 History of Past illness Narrative* Problem Noted Date Diagnosed Date Resolved Date Obesity, Class II, BMI 35-39.9 03/09/2022 03/10/2023 Obesity (BMI 30-39.9) 05/31/20142016 documented as of this encounter (statuses as of 03/19/2023) [address]17-2022 History of Past illness Narrative* Problem Noted Date Diagnosed Date Resolved Date Obesity, Class II, BMI 35-39.9 03/09/2022 03/10/2023 Obesity (BMI 30-39.9) 05/31/20142016 documented as of this encounter (statuses as of 03/24/2023) [address]17-2022 History of Past illness Narrative* Problem Noted Date Diagnosed Date Resolved Date Obesity, Class II, BMI 35-39.9 03/09/2022 03/10/2023 Obesity (BMI 30-39.9) 05/31/20142016 documented as of this encounter (statuses as of 04/16/2023) [address]17-2022 History of Past illness Narrative* Problem Noted Date Diagnosed Date Resolved Date Obesity, Class II, BMI 35-39.9 03/09/2022 03/10/2023 Obesity (BMI 30-39.9) 05/31/20142016 documented as of this encounter (statuses as of 04/23/2023) [address]17-2022 History of Past illness Narrative* Problem Noted Date Diagnosed Date Resolved Date Obesity, Class II, BMI 35-39.9 03/09/2022 03/10/2023 Obesity (BMI 30-39.9) 05/31/20142016 documented as of this encounter (statuses as of 04/27/2023) [facility]10-17-2022 History of Past illness Narrative* Problem Noted Date Diagnosed Date Resolved Date Obesity, Class II, BMI 35-39.9 03/09/2022 03/10/2023 Obesity (BMI 30-39.9) 05/31/20142016 documented as of this encounter (statuses as of 04/27/2023) [facility] [place]10-17-2022 History of Past illness Narrative* Problem Noted Date Diagnosed Date Resolved Date Obesity, Class II, BMI 35-39.9 03/09/2022 03/10/2023 Obesity (BMI 30-39.9) 05/31/20142016 documented as of this encounter (statuses as of 05/31/2023) [facility] [place]10-17-2022 Instructions* Patient Instructions* Christie Phan MD - 03/09/2022 12:47 PM EDT Check EKG for prolonged QT. If normal, I would try going back on the Lexapro, can recheck an EKG inabout a month to make sure that things are going ok. (I'm leaving this, but we are changing to Cymbalta) Tilt Table Test [email or web address] documented [facility] [place] History of Present illness Narrative* Christie Phan MD - 03/09/2022 12:08 PM EDT Images from the original note were not included. [facility] Virtual Initial Consult ASSESSMENT and PLAN: Consultation requested by Jose Najera MD for an opinion regarding Jones Haley. My finalrecommendations will be communicated back to the referring provider by way of shared medical record. Jones Haley is a 41 year old female with a PMH of Chronic Pain, Chronic Fatigue, Fibromyalgia, HLD, B12 def, Elevated ESR, anemia, lupus, depression, CHRISTIAN +, bit d def., Obesity (BMI 38.84 who is here to improve pain and weight with lifestyle and integrative medicine. Jones was seen today for new patient. Diagnoses and all orders for this visit: Snoring - HOME SLEEP APNEA TEST (HSAT); Future Somnolence, daytime - CONSULT TO LIFESTYLE MEDICINE MD - HOME SLEEP APNEA TEST (HSAT); Future Chronic fatigue and malaise - CONSULT TO LIFESTYLE MEDICINE MD Obesity, unspecified classification, unspecified obesity type, unspecified whether serious comorbidity present - CONSULT TO LIFESTYLE MEDICINE MD Obesity, Class II, BMI 35-39.9 POTS (postural orthostatic tachycardia syndrome) - TILT TABLE EVALUATION Elevated glucose - HGB A1C; Future Raised level of immunoglobulins - CONSULT TO IMMUNOLOGY; Future Other orders - DULoxetine (CYMBALTA) 20 mg capsule; Take 1 capsule by mouth once daily. (Patient not taking: Reported on 03/10/2022) Lifestyle Goals deferred, follow up consults and cymbalta. Will tackle nutritoin, sleep, PA, and stress at next visit. F/U: 6 weeks SUBJECTIVE: Jones Haley is a 41 year old female with a pertinent PMH as listed above is a new patient whopresents for a lifestyle consult. CC: pain and weight, lack of diagnosis HPI: Has for the last couple of years experienced a steep decline in health. Despite having a fair number of positive test results, none seem to correlate fully with a specific diagnosis or all of her symptoms. This is causing great distress as it is affecting her daily activities of life includingher ability to work. DIET OVERVIEW: Following a specific diet? Normal diet, # takeout/fast food/ or restaurant meals/week: From scratch or prepared foods/frozen entrees? Scratch. Lots of crockpot meal . Who cooks at home? Self Food allergies or sensitivities: no DIETARY RECALL: Breakfast: grapes and toast Lunch: skips ( meena. When working from home) salads when shes at work. Dinner: tacos Daytime/Evening Snacks: Sweets: told she was pre-diabetic, has experienced hypoglycemia. Beverages Alcohol: No Caffeinated: 1 pot a day coffee, with milk MEAL TIMING: Breakfast: Lunch: skips Dinner: 4-5 pm What time do you finishing eatin-10 after snack PHYSICAL ACTIVITY: Exercise is off the table. Some think it's lupus (HR increases when she stands) 2 years ago Has never really been a great intensivist Went to [place] was able to walk around, had some low back pain. Denies cardio, resistance, stretching/yoga: Is seeing a chiropractor and this really helps with stiffness. SLEEP: Sleep quality in the past month: Always tired, when she feels her body isn't going to cooperate shewill take extra naps. Goes from 1-2 times per night to 50x a night. Kidneys are sore, no burning when she pees, urinary urgency, this is improved with ABX, although negative for UTI. Sleep good during the night Difficulty falling asleep (awake 30+ mins, staying asleep): has a couple of episodes where she feltlike she was going to ( not breathing) Activities before bed: getting daughter ready for bed; on phone Bedtime: 9pm when she's working, midnight when she's not working. Wake time: 8am Average hours sleep time per night: mabye 12 hours total, 8 at night, the rest is in naps PAP therapy: snoring, STOP BANG Questionnaire 1. Snoring Do you snore loudly (louder than talking or loud enough to be heard through closed doors)? YES 2. Tired Do you often feel tired, fatigued, or sleepy during daytime? YES 3. Observed Has anyone observed you stop breathing during your sleep? NO 4. Blood Pressure Do you have or are you being treated for high blood pressure? NO usually 100/60, will be 158/100 or 90/50 - its all over the place. 5. BMI BMI more than 35 kg/m2? YES 6. Age Age over 50 yr old? NO 7. Neck circumference Neck circumference greater than 40 cm? N/A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 disease. Will complete work up for lymphadenopathy although low suspicion for infectious etiology. PLAN: - Patient to send in immunoglobulins from OSH lab - HIV screen ordered - Syphilis IgG ordered - histoplasma urinary ag and crypto urinary ag ordered - bartonella and brucella serologies ordered - treat urinary symptoms based on future UA/ culture results - follow up based on results of lab work Tiffany Head DO February 24, 2022 documented in this encounter[facility] [place] Evaluation note* Encounter Date Diagnosis Assessment Notes Treatment Notes Treatment Clinical Notes Nov, Elevated sed rate (ICD-10 - R70.0) Nov, Cytomegalovirus infection, 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 It seems when she is not feeling well her IgM raises. She has been having symptoms essentially since 2019 but only has had CMV testing apparently over the last couple months. Obviously the CMV IgM can stay positive for months as we know but despite not feeling well her CMV DNA PCR remains negative. Therefore it seems less likely that she has a viremia. She also was told that she has some sort of lupus variant. She does see rheumatology and is on hydroxychloroquine. Her digital analytics manager is Dr. Ni. Dr. Ni and I talked regarding patient's clinical symptoms. It was her thought that in addition to lupus there may be a fibromyalgia -type component to her symptoms. It was also her conclusion along with mind that we do not think CMV is contributing to her various physical complaints that encompassed burning in her back joint pains and lower leg muscle aches. 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 Episodes of fever/all over pain/flank pain. Flank pain better with antibiotics when home urine test abnormal. Has recurrent flank pain. Worst pain episode 03/2021 and less severe 08/2021 (better since taking plaquenil). Only started vitamin D script after 06/2021 lab resulted. Taking plaquenil 2tab daily. Due for eye exam. Labs sent to [place]/completed in 06/2021 (no results faxed to office, but patient pulled up results on her phone). Chronic current pain in neck, flank area, mid back, knees, legs, arms, all over pain. Better with lyrica 75mg 3times a day. Reports pain 4-8/10. Couple hrs AM stiffness. COVID vaccine [employer] 09/28/20, 10/19/20, 05/26/21. Feels safe at home. Has enough food, supplies and medications. Overall uncomfortable but happy with rheum care. No falls/fx/trauma/illness/oral sores/rash/hairloss/jaw pain/dysphagia/epistaxis/hemoptysis since last visit. No adverse effects with meds. No other complaints. Patient denies fever, chills, cp, dyspnea, nausea, vomiting, night sweats, scalp tenderness, visual changes, hernandez, bowel/bladder changes, weight changes or other complaints. Last visit supportive care, start plaquenil/notify office if not tolerated, start photoprotection, see ophthalmology, see spine clinic, see derm, start prn heat/ice/otc arthritis creams, low impact weightbearing exercise as tolerated, avoid aggravating triggers March 05, 2021 SUBJECTIVE Ms. Haley is a 40 year old female who presents for +CHRISTIAN/high esr eval. 12years of back pain, abnormal LE EMG, no response with muscle relaxants, lyrica, or injections Waiting for MRI lumbar not approved until PT sessions completed Heel pain 3years ago, lost weight, better with steroids 07/2019 sore throat (told her she has gerd), also had lymph nodes swelling once in neck, painful in axilla Treated with antibiotics, unsure if helpful hairloss earlier in year. 10/2020 patches of raised rash on arms/chest, better with steroid injection 01/2021 Had wisdom tooth extracted 01/2021, then R jaw neck/swelling, improved with steroids injections Leg weakness lately Tibial pain Last month mid foot pain, worse with walking or sitting Pain worse in legs low back Painful to walk or play with children hands random painful/tingling Once a month feels feverish Bottom of feet red since few months Does not like prednisone, hungry, palpitations Does better with dexamethasone Reports pain -11/30 No falls/fx/trauma/illness/oral sores/rash/hairloss/jaw pain/dysphagia/epistaxis/hemoptysis. No adverse effects with meds. No other complaints. Patient denies fever, chills, cp, dyspnea, nausea, vomiting, night sweats, scalp tenderness, visual changes, hernandez, bowel/bladder changes, weight changes or other complaints. COMPLETE REVIEW OF SYSTEMS: RHEUM. ROS: Joint pain: yes axilla, low back, legs, feet, flank pain Joint swelling: no Am stiffness: yes all day Low back pain: yes H/o precedent/frequent infection(s): as above Enthesopathy/[place]'s/heel/plantar tenderness: hands random painful/tingling Skin thickening, psoriasis, photosensitivity, purpura: as above Alpecia, patchy: yes Eye inflammation: glasses GI problems-diarrhea/bleeding/IBD/Gluten intolerence/Dysphagia: as above Fatigue: yes, sleeps 10 hr/night PMR/GCA ROS: negative Patient denies history of Gout or Pseudogout, Psoriasis, Rheumatic Fever, GERD, PUD, Liver Disease,Hepatitis , Kidney Disease, Kidney Stones, DM, HTN, CAD, PAD, Sinusitis, Asthma, TB infection or exposure, Pneumonias, Anemia, Seizures, Stroke, MS, Clots, Cancer, Thyroid Disease, Transfusions, Tattoos and Alcohol dependency. Other ROS:The remainder of the review of systems is negative. All other reviewed and negative other than HPI. PATIENT REPORTS: Cardiac stress test:stable. Cardiac cath stable Breast exam:negative Pap exam: normal, last menses 02/26/21 late, not taking hormones; G7, P4, 3miscarriage Colonoscopy: no Bone Density:no History of Fractures:stress fracture R foot 2008 Height Loss: no IMMUNIZATION HX: Immunization History Administered Date(s) Administered COVID-19 vaccine, age 12+ yr ([employer] - PURPLE TOP) 09/28/2020 10/19/2020 Pneumovax no Flu shot no Tetanus yes Last PPD: negative PAST MEDICAL HISTORY: PMH depression, diffuse cystic mastopathy, hypotension, hyperlipidemia, pilonidal cyst with abscess treated with I&D, s/p wisdom tooth extraction, s/p D&C , stress fracture R foot 2008 PAST SURGICAL HISTORY: s/p wisdom tooth extraction, s/p D&C PAST SURGICAL HISTORY Procedure Laterality Date PAST SURGICAL HISTORY OF 2011 and 2012 pilonidal cyst PAST SURGICAL HISTORY OF D & C PAST SURGICAL HISTORY OF ablation FAMILY HISTORY: mother-crohns, arthritis;father-pancreatic cancer;son-PTX; FAMILY HISTORY Problem Relation Age of Onset Cancer Father stomach other (Crohn's [Other]) Mother SOCIAL HISTORY: Social History Tobacco Use Smoking status: Current Every Day Smoker Packs/day: 1.00 Years: 20.00 Pack years: 20.00 Types: Cigarettes Smokeless tobacco: Never Used Substance Use Topics Alcohol use: No Drug use: Yes Types: Marijuana Comment: Past use of marijuana at age of 18 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, 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 Smoking 1ppd x 20years etoh no No gout MEDICATIONS: reviewed medlist 10/24/21 Calcium no Vitamin D script CURRENT ALLERGIES: Allergies As of Date: 10/24/2021 Allergen Noted Reaction BACTRIM [SULFAMETHOXAZOLE] 05/31/2014 GI Upset CODEINE 05/31/2014 Other: See Comments LATEX 05/31/2014 Rash Fully Assessed 03/05/2021 TESTS:All Diagnostic tests reviewed for today's visit: Outside [facility] 06/2021 low vitamin D 16, vitamin b12-307;high wbc 11.1, esr 21;NL rest of hgb 12.2, plts 314, crp<0.5mg/dL; 03/05/21 low vitamin D 11 (6.7), vitamin b12-358;high esr 33;NL crp 0.5, ck 59, aldolase 3.9;negative pramod, ccp<15, hepatitis panel,quantiferon tb; Outside 11/2020 high esr 48, +CHRISTIAN 1:80/speckled;low tsh 0.41;NL crp<0.5, uric acid 4.1;negative RF<10, ASO; Outside 12/2019 lumbar xrays- mild facet arthrosis at L405, L5-S1 PHYSICAL EXAM:reviewed vitals BP (!) 106/42 Pulse 72 Wt 108.9 kg (240 lb) LMP 05/31/2015 BMI 37.59 kg/m General Appearance: WD/WN, NAD. Appropriate grooming. Very pleasant. Ambulates fair without assistance or without assistive devices, speaks in full sentences without distress SKIN: areas of redness on forehead, no psoriasis, no purpura, no ulcers, no skin thickening/tightness, no telangiectasias. HEENT: No patchy alopecia, normal temporal artery pulsations, non-tender, scalp non-tender, no conjunctival injection or icterus, no oral ulcers, no thrush, normal nasal mucosa, no sinus tenderness, normal TM's. yes glasses, dentition NECK: neck supple w/o masses, no thyromegaly, no LAD. LUNGS: CTA, Good respiratory effort. HEART: RRR, - m/r/g ABDOMEN: soft, non-tender, no HSM/masses/bruits. EXTREMITIES: Adequate pulses b/l UE ; No clubbing,discoloration,sclerodactyly, periungual erythema,digital ulcers, nail pitting, edema, varicosities. MUSCULOSK: No joint deformities, no rheumatoid nodules, calcifications or tophi. No SI tenderness, no gillian's tenderness, no heel/plantar tenderness, lumbar flexion full, negative Sumaya's test, tinel's and phil tests Swoll JTS:no Tend. JTS: neck, knees, diffusely UEs, axilla, low back, legs, feet, flank pain, decreased range ofmotion due to pain; no warmth/erythema No clinical synovitis in the DIP's, PIP's, MCP's, wrists, elbows, shoulders, knees, ankles, midfoot, or toes. no knee effusions bilateral. Shoulder exam:fair range of motion; no warmth/erythema Hip rom without pain LIMITATION of Motion of Joints: yes Thoracic/Lumbar Spine: No percussion tenderness SLR:negative No instability in any upper or lower extremity joints. NEURO: Mental Status: alert and oriented x 3, anxious, CN II - XII grossly intact Motor: 5/5 proximally and distally b/l Sensory: intact to fine touch TENDER POINTS: 05/10 Gait: see above Toe and heel walk normal. Tone: normal IMPRESSION/DIAGNOSIS:10/24/21 M32.19 Other systemic lupus erythematosus with other organ involvement (HCC) (primary encounter diagnosis) R76.8 CHRISTIAN positive R70.0 Elevated sed rate E55.9 Vitamin D deficiency E53.8 Vitamin B12 deficiency 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 M54.42, M54.41, G89.29 Chronic bilateral low back pain with bilateral sciatica R21 Rash and nonspecific skin eruption M79.674, M79.675, G89.29 Chronic pain of toes of both feet L65.9 Hair loss Z79.899 Long-term use of Plaquenil Z83.79 Family history of Crohn's disease M79.7 Fibromyalgia Ms. Haley is a 41 year old female with PMH depression, diffuse cystic mastopathy, hypotension, hyperlipidemia, pilonidal cyst with abscess treated with I&D, s/p wisdom tooth extraction, s/p D&C , stress fracture R foot 2008 presents with 12years of back pain, abnormal LE EMG, no response with muscle relaxants, lyrica, or injections Waiting for MRI lumbar not approved until PT sessions completed Heel pain 3years ago, lost weight, better with steroids 07/2019 sore throat (told her she has gerd), also had lymph nodes swelling once in neck, painful in axilla Treated with antibiotics, unsure if helpful hairloss earlier in year. 10/2020 patches of raised rash on arms/chest, better with steroid injection 01/2021 Had wisdom tooth extracted 01/2021, then R jaw neck/swelling, improved with steroids injections Leg weakness lately Tibial pain Last month mid foot pain, worse with walking or sitting Pain worse in legs low back Painful to walk or play with children hands random painful/tingling Once a month feels feverish Bottom of feet red since few months Does not like prednisone, hungry, palpitations Does better with dexamethasone Reports pain 2-11/30 Outside 11/2020 high esr 48, +CHRISTIAN 1:80/speckled;low tsh 0.41; Arthrosis on imaging Has findings consistent with inflammatory arthritis/+CHRISTIAN/high esr, secondary osteoarthritis of multiple joints, lumbago with sciatica, low vitamin D/b12, here recent skin biopsy showed tumoid lupus. 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 Episodes of fever/all over pain/flank pain. Flank pain better with antibiotics when home urine test abnormal. Has recurrent flankpain. Worst pain episode 03/2021 and less severe 08/2021 (better since taking plaquenil). Only started vitamin D script after 06/2021 lab resulted. Taking plaquenil 2tab daily. Due for eye exam. Labs sent to [place]/completed in 06/2021 (no results faxed to office, but patient pulled up results on her phone). Chronic current pain in neck, flank area, mid back, knees, legs, arms, all over pain. Better with lyrica 75mg 3times a day. Reports pain -12/31. Couple hrs AM stiffness. COVID vaccine Pfizer09/28/20, 10/19/20, 05/26/21. Feels safe at home. Has enough food, supplies and medications. Overall uncomfortable but happy with rheum care. = supportive care, follow up with ID/CMV infection/on antiviral, see primary care provider for recurrent flank pain/UTIs, improved with plaquenil 2tabs daily, start photoprotection, see ophthalmology, notify office when infection free to start additional dmards, see spine/pain clinic/improved with lyrica/may increase if needed, see derm, start prn heat/ice/otc arthritis creams, low impact weightbearing exercise as tolerated, avoid aggravating triggers, answered all questions and concerns, patient voiced understanding. RECOMMENDATION/PLAN: Reviewed labs/tests with patient Provided printed info 10/24/21 check nonfasting labs Modified 10/24/21 KRISTEN 0, pain 40-80%;March 05, 2021 KRISTEN 0, pain 20-70%; May apply over the counter arthritis creams/patches (biofreeze, icy hot, asper cream, tiger balm, capsacin, lidocaine, salon pas, voltaren gel, etc.) or over the counter pain patches to painful joints up to four times a day. Avoid contact with eyes. May take Extra Strength acetaminophen 500mg every 4-6hours for joint pain. Do not exceed 3000mg /day. Decrease stress Improve sleep May apply heat/ice 20minutes on and off to areas of pain Avoid aggravating triggers Calcium 1000mg daily with food in DIVIDED doses If labs normal, take Vitamin D 4000 International Units daily with food after script completed Hydroxychloroquine/Plaquenil: Please take one tab (200mg) daily with a meal Please see wood flour miller every 6-12months while on Hydroxychloroquine. Recommend goal: exercising 30minutes 3-5 times a week Recommend weight-bearing aerobic exercises such as walking, dancing, low impact aerobics, elliptical machine, stair climbing, gardening flexibility exercises and strength training exercises Recommend avoiding high impact exercises such as jumping, running or jogging or movements where youbend forward and twist the waist, for instance- touching your toes, sit-ups, using row machine senior living pain recommendations per primary care provider/pain clinic Additional time spent with patient on healthy lifestyle, healthy food and anti- inflammatory diet (with emphasis on whole plant based diet), avoiding refined carbs/sugars and processed food, appropriate exercise (stretching, cardio and strengthening), good sleep hygiene, stress mgt, and supplementing vital deficiencies and maintaining healthy wt and BMI. Additional information provided with references and educational information. Bone Health Recommendations: -Bone Density: After age 70 yrs, sooner if new clinical risk factors, or systemic steroid use of 3 months or more. -Vitamin D supplementation recommended, optimal dose is the dose necessary to achieve Vitamin D 25-OH blood level in range of 40-60 ng/mL. -Recommended daily dose of calcium: 1000-1200mg total a day in divided doses. Calcium from dietary sources, if not sufficient, or if with h/o calcium nephrolithiasis would recommend Calcium Citrate supplement, as it is recommended to avoid calcium carbonate products, which as main dietary calcium source. The after visit summary has information on dietary calcium and instructions on reading calcium label and converting the %DV to mg. -Regular weight-bearing and muscle-strengthening exercise -Avoidance of tobacco smoking, excessive alcohol intake and excessive caffeine intake. -Fall and fracture precautions -Continued regular dental follow up visits and good dental/gum care Stressed the importance of following up with PCP and specialists for his/her chronic diseases, health, CV, and cancer screening and continued care. Will follow disease activity/progression and adjusttherapeutic regimen to disease activity and severity. Discussed medication dosage, usage, goals of therapy, and side effects. Available test results were reviewed An additional 20minutes were spent outside of the patient visit to review records. Additional time spent with the patient to discuss their questions. Additional time spent with the patient devoted to discussing treatment strategy, planning, and implementation. Discussed findings, impression and plan with patient. Patient understands above plan; questions asked and answered. Patient agrees to plan as noted above. Total time spent on this visit, with more than 50% of time spent via video & audio (virtual) orphone or face to face with patient, in consultation, and in addition to Counseling and Coordinationof Care, explanation of diagnosis, and planning of further management; I spent a total of 30 minutes on the date of the service which included preparing to see the patient, video & audio (virtual) or phone or [id number] patient care, completing clinical documentation, obtaining and/or reviewing separately obtained history, performing a medically appropriate examination, counseling and educating the patient/family/caregiver, ordering medications, tests, or procedures, communicating with other HCPs (not separately reported), independently interpreting results (not separately reported), communicating results to the patient/family/caregiver and care coordination (not separately reported) Follow up 4-6months, earlier if needed Recommendations to share with referring physician/Primary care physician : Dear Gay Enciso CNP: I had the pleasure of seeing your patient, Jones Haley. I have enclosed a copy of my clinic note with my assessment and recommendations for this patient. Recommendations for your consideration as you deem necessary: -Continuous follow up with Primary care physician for cardiovascular disease prevention, for age appropriate cancer screening and routine health maintenance and wellness, and infection precautions and age appropriate immunization recommended. Thank you for allowing me to participate in the care of your patient. Lynne Ni MD I will relay my findings and recommendations to the physician requesting the consult by letter/electronic shared medical records. cc Gay Enciso CNP Answers for HPI/ROS submitted by the patient on 10/23/2021 Fever : No Recent Unintentional Weight Change: No Eye Pain: No Eye Redness: No Vision Disturbance: No Eye Dryness: No Nose Bleeds: No Sores in your Mouth: No Trouble Swallowing: No Dry Mouth: No Chest Pain: Yes Leg Swelling: No A Cough: No Shortness of Breath: No Pain with Breathing: No Heartburn: No Abdominal Pain: No Diarrhea: No Black Tarry Stools: No Blood in Urine: No Pain or Burning with Urination: No Joint Pain or Stiffness: Yes Muscle Weakness: Yes Muscle Aches: Yes Joint Swelling: No Morning Stiffness in Joints: Yes A Rash: Yes Do you have sun sensitive rashes?: Yes Skin Color Changes: No Hair Loss: Yes Nail Changes: No Headaches: No Numbness: Yes Memory Loss: No Swollen Glands: Yes [facility] PROMIS CAT V2.0-PHYSICAL FUNCTION-28 DAYS Question 10/23/2021 11:21 PM EDT - Filed by Patient Does your health now limit you in doing two hours of physical labor? Cannot do Are you able to do chores such as vacuuming or yard work? Unable to do Are you able to carry a shopping bag or briefcase? With a little difficulty Are you able to run errands and shop? With much difficulty PROMIS Physical Function T-Score (range: 10 - 90) 30 (moderate dysfunction) PROMIS Physical Function Percentile (range: 0 - 1) 2 [facility] PROMIS CAT V1.0 FATIGUE-28 DAYS Question 10/23/2021 11:22 PM EDT - Filed by Patient How often did you have to push yourself to get things done because of your fatigue? Often I have trouble starting things because I am tired Somewhat How run-down did you feel on average? Somewhat How much were you bothered by your fatigue on average? Somewhat PROMIS Fatigue T-Score (range: 10 - 90) 59 (mild) PROMIS Fatigue Percentile (range: 0 - 100) 18 [facility] PROMIS CAT V1.1-PAIN INTERFERENCE-28 DAYS Question 10/23/2021 11:23 PM EDT - Filed by Patient How much did pain interfere with your day to day activities? Quite a bit How much did pain interfere with your ability to participate in social activities? Quite a bit How much did pain interfere with your enjoyment of social activities? Quite a bit How much did pain interfere with work around the home? Quite a bit PROMIS Pain Interference T-Score (range: 10 - 90) (range: 10 - 90) 67 (moderate) PROMIS Pain Interference Percentile (range: 0 - 1) 4 [facility] RAPID 3 Question 10/23/2021 11:25 PM EDT - Filed by Patient Dress yourself, including typing shoelaces and doing buttons? Without ANY difficulty Get in and out of bed? With SOME difficulty Lift a full cup or glass to your mouth? Without ANY difficulty Walk outdoors on flat ground? Without ANY difficulty Wash and dry your entire body? With SOME difficulty Bend down to picker operator clothing from the floor? With SOME difficulty Turn regular faucets on and off? Without ANY difficulty Get in and out of a car, bus, train, or airplane? Without ANY difficulty Walk tow miles or three kilometers, if you wish? UNABLE to do Participate in recreational activities and sports as you would like, if you wish? UNABLE to do Get a good night's sleep? With SOME difficulty Deal with feelings of anxiety or being nervous? With SOME difficulty Deal with feelings of depression or feeling blue? Without ANY difficulty RAPID 3 Pain Level 6.5 RAPID 3 HOW DOING OVERALL 7 RAPID 3 Functional Status Score (range: 0 - 10) 3 PAIN LEVEL (range: 0 - 10) 6.5 Global Estimate (PTGE) (range: 0 - 10) 7 RAPID 3 CUMULATIVE SCORE (range: 0 - 30) 16.5 RAPID 3 Weighed Score (range: 0 - 10) 5.5 (High Severity (HS)) Weighed Score Percentage Change Compared to Last (range: -500 - 500) -9.98 [facility] PROMIS 10 ADULT SHORT FORM V1.0 GLOBAL HEALTH Question 10/23/2021 11:29 PM EDT - Filed by Patient In the past 7 days In general, would you say your health is: Poor In general, would you say your quality of life is: Poor In general, how would you rate your physical health? Poor In general, how would you rate your mental health, including your mood and your ability to think? Very good In general, how would you rate your satisfaction with your social activities and relationships? Good In general, please rate how well you carry out your usual social activities and roles. (This includes activities at home, at work and in your community, and responsibilities as a parent, child, spouse, employee, friend, etc.) Good To what extent are you able to carry out your everyday physical activities such as walking, climbing stairs, carrying groceries, or moving a chair? A little In the past 7 days In the past 7 days, how often have you been bothered by emotional problems such as feeling anxious,depressed or irritable? Rarely In the past 7 days, how would you rate your fatigue on average? Moderate In the past 7 days, how would you rate your pain on average? 6 PROMIS Adult Short Form-Global Health Score (Physical) (range: 16 - 68) 32.4 (Poor) PROMIS Adult Short Form-Global Health Score (Mental) (range: 21 - 68) 43.5 (Good) Myc Promis Gh Physical Score Compared To Last (range: -2 - 3) 3 (WITHIN +/- 5) Myc Promis Gh Mental Score Compared To Last (range: -2 - 3) 3 (WITHIN +/- 5) MYC PROVIDER UNDERSTANDING CURRENT HEALTH RHEUMATOLOGY Question 10/23/2021 11:29 PM EDT - Filed by Patient These questions will help my provider understand my health Strongly Agree [facility] [place]* Patient Instructions* Lynne Ni MD - 10/24/2021 8:20 AM EDT May apply over the counter arthritis creams/patches (biofreeze, icy hot, asper cream, tiger balm, capsacin, lidocaine, salon pas, voltaren gel, etc.) or over the counter pain patches to painful joints up to four times a day. Avoid contact with eyes. May take Extra Strength acetaminophen 500mg every 4-6hours for joint pain. Do not exceed 3000mg /day. Decrease stress Improve sleep May apply heat/ice 20minutes on and off to areas of pain Avoid aggravating triggers If needed, may take Calcium 1000mg daily with food in DIVIDED doses If labs normal, take Vitamin D 4000 International Units daily with food after script completed Hydroxychloroquine/Plaquenil: Please take two tabs (200mg) daily with a meal Please see wood flour miller every 6-12months while on Hydroxychloroquine. Recommend goal: exercising 30minutes 3-5 times a week Recommend weight-bearing aerobic exercises such as walking, dancing, low impact aerobics, elliptical machine, stair climbing, gardening flexibility exercises and strength training exercises Recommend avoiding high impact exercises such as jumping, running or jogging or movements where youbend forward and twist the waist, for instance- touching your toes, sit-ups, using row machine senior living pain recommendations per primary care provider/pain clinic Thank you. documented in this encounter[facility] [place] Evaluation note* Encounter Date Diagnosis Assessment Notes Treatment Notes Treatment Clinical Notes September, Elevated sed rate (ICD-10 - R70.0) Patient has had quite an extensive work-up already to date with only abnormalities being elevated CMV titers. Her IgM however still was elevated but lower than previous values. At some point in time this should revert to normal. Obviously with reactivation of potential viruses like this I would expect a positive PCR result for which she did not have. She states when her last titers were done she was feeling good. Have given her an order to have repeat labs done for when she feels bad as she states her symptoms cycle. She also is on hydroxychloroquine she tells me from rheumatology due to a questionable diagnosis of lupus. I do not know if there is other autoimmune or rheumatological issues occurring for this patient but her CHRISTIAN was negative. Her exam is really unyielding. Given the repeated complaints of episodic flushing and tachycardia and subjective fevers will order urine and serum for metanephrines but feel that pheochromocytoma a stretch but worth checking given lack of other etiologies. 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 Exam really was unyielding. Labs that were partially sent to me do show an elevation of his CMV IgM + IgG level. 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 Generally CMV infection is self-limiting and she did share with me rather normal AST ALT on a screenshot that was not dated. I favor obtaining some labs today as well as repeat labs mid-September. Therefore we can reevaluate her CMV serologies as well as consider CMV DNA PCR of the blood to be obtained at that time. She does not have any significant known immunosuppressive condition that would put patient at risk for CMV viremia that would be a significant worry. The labs were going to obtain in the next few days will include a CBC as well as markers of inflammation just for further evaluation. TSH was within normal limits based on labs that were faxed to me. I do not have any imaging or any results of the biopsy that she tells me have been done. For now she is to come off the acyclovir. As for the hydroxychloroquine without any significant lupus diagnosis I will defer that to her digital analytics manager. 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 Exam really was unyielding. Labs that were partially sent to me do show an elevation of his CMV IgM + IgG level. 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 Generally CMV infection is self-limiting and she did share with me rather normal AST ALT on a screenshot that was not dated. I favor obtaining some labs today as well as repeat labs mid-September. Therefore we can reevaluate her CMV serologies as well as consider CMV DNA PCR of the blood to be obtained at that time. She does not have any significant known immunosuppressive condition that would put patient at risk for CMV viremia that would be a significant worry. The labs were going to obtain in the next few days will include a CBC as well as markers of inflammation just for further evaluation. TSH was within normal limits based on labs that were faxed to me. I do not have any imaging or any results of the biopsy that she tells me have been done. For now she is to come off the acyclovir. As for the hydroxychloroquine without any significant lupus diagnosis I will defer that to her digital analytics manager. [employer] Other 05-17-2021 Hospital Discharge instructions* Instructions* So Carlisle RN - 10/07/2020 DISCHARGE INSTRUCTIONS / ARM CARE POST CATHERIZATION ENCOURAGE FLUIDS REMOVE ARMBOARDTHE FOLLOWING DAY NO STRENUOUS LIFTING WITH AFFECTED ARM FOR 3 DAYS ANYTHING HEAVIER THAN 8 TO 10 POUNDS REMOVE BAND-AID/PRESSURE DRESSING THE FOLLOWING DAY AND DO NOT APPLY ANY FURTHER BAND-AIDS KEEP INCISION CLEAN DRY AND OPEN TO THE AIR / NO HAND LOTION NEAR PUNCTURE SITE WATCH FOR SIGNS OF INFECTION / REDNESS / SWELLING / DRAINAGE / WARMTH / TEMPERATURE GREATER THAN 101 IF BLEEDING OCCURS HOLD MANUAL PRESSURE DIRECTLY OVER SITE (YOU WILL FEEL PULSATION OF ARTERY) AND IF BLEEDING DOES NOT STOP AFTER 2 MINUTES CALL 911 OK TO SHOWER THE NEXT DAY, NO TUB BATHING OR HOT TUBS/SWIMMING FOR 7 DAYS IF AREA BECOMES HARD AND SWOLLEN AND IF YOU ARE AT ALL CONCERNED SEEK HELP IMMEDIATELY SEEK HELP IMMEDIATELY IF AFFECTED ARM BECOMES COLD / NUMB / SEVERE PAIN / NAILBEDS TURN BLUE IF ON METFORMIN / GLUCOPHAGE DO NOT RESTART MEDICATION FOR 48 HOURS PLEASE PRACTICE GOOD HAND WASHING AND INCLUDE PUNCTURE SITE ESPECIALLY AFTER USING THE RESTROOM SEDATION / ANALGESIA INFORMATION / HOME GOING ADVICE You have received the sedation/analgesia medication during your visit Sedation/analgesia is used during short medical procedures under controlled supervision. The medication will produce a strong relaxation. You will be able to hear, speak and follow instructions, but your memory and alertness will be decreased. You will be able to swallow and breathe on your own. During sedation/analgesia your blood pressure,heart and breathing will be watched closely. After the procedure, you may not remember what was said or done. You may have the following effects from the medication. Drowsiness, dizziness, sleepiness or confusion. Difficulty remembering or delayed reaction times. Loss of fine muscle control or difficulty with your balance especially while walking. Difficulty focusing or blurred vision. You may not be aware of slight changes in your behavior and/or your reaction time because of the medication used during the procedure. Therefore you should follow these instructions. Have someone responsible help you with your care. Do not drive for 24 hours. Do not operate equipment for 24 hours (lawnmowers, power tools, kitchen accessories, stove). Do not drink any alcoholic beverages for a minimum of 24 hours. Do not make important personal, legal or business decisions for 24 hours. You may experience dizziness or lightheadedness. Move slowly and carefully, do not make sudden position changes. Drink extra amounts of fluids today. Increase your diet as tolerated (unless you have received specific instructions from your doctor). If you feel nauseated, continue with liquids until the nausea is gone. Notify your physician if you have not urinated within 8 hours after the procedure. Resume your medications unless otherwise instructed. * Attachments The following attachments cannot be sent through [facility] Everywhere. * amlodipine (Bolivian) * nitroglycerin (oral/sublingual) (Bolivian) [facility] Phone: [phone]) 426-390005-17-2021 History of Present illness Narrative* So Carlisle RN - 10/07/2020 1:20 PM EDT Remaining air removed from TR band, no bleeding or hematoma noted. Radial pulse palpable. Pressure dressing applied with arm board in place. * So Carlisle RN - 10/07/2020 10:00 AM EDT All discharge instructions reviewed, questions answered, paper signed and given copy. Patient discharged with and belongings. * So Carlisle RN - 10/07/2020 9:09 AM EDT Patient admitted, consent signed and questions answered. Patient ready for procedure. Call light toreach with side rails up 2 of 2. Family at bedside with patient. History and physical needs to be completed. [facility] Phone: [phone]) 917-277801-08-2015 History of Past illness Narrative* Problem Noted Date Resolved Date Obesity (BMI 30-39.9) 05/31/2014 07/06/2016 documented as of this encounter (statuses as of 10/24/2021) [place] [id number] History of Past illness Narrative* Problem Noted Date Resolved Date Obesity (BMI 30-39.9) 05/31/2014 07/06/2016 documented as of this encounter (statuses as of 02/25/2022) [place] [id number] History of Past illness Narrative* Problem Noted Date Resolved Date Obesity (BMI 30-39.9) 05/31/2014 07/06/2016 documented as of this encounter (statuses as of 03/02/2022) [facility] [place] History of Past illness Narrative* Problem Noted Date Resolved Date Obesity (BMI 30-39.9) 05/31/2014 07/06/2016 documented as of this encounter (statuses as of 03/04/2022) [place] [id number] History of Past illness Narrative* Problem Noted Date Resolved Date Obesity (BMI 30-39.9) 05/31/2014 07/06/2016 documented as of this encounter (statuses as of 03/05/2022) [address]08-2015 History of Past illness Narrative* Problem Noted Date Resolved Date Obesity (BMI 30-39.9) 05/31/2014 07/06/2016 documented as of this encounter (statuses as of 03/06/2022) [address]08-2015 History of Past illness Narrative* Problem Noted Date Resolved Date Obesity (BMI 30-39.9) 05/31/2014 07/06/2016 documented as of this encounter (statuses as of 03/09/2022) [address]-2015 History of Past illness Narrative* Problem Noted Date Resolved Date Obesity (BMI 30-39.9) 05/31/2014 07/06/2016 documented as of this encounter (statuses as of 03/10/2022) [address]08-2015 History of Past illness Narrative* Problem Noted Date Resolved Date Obesity (BMI 30-39.9) 05/31/2014 07/06/2016 documented as of this encounter (statuses as of 03/10/2022) [address]-2015 History of Past illness Narrative* Problem Noted Date Resolved Date Obesity (BMI 30-39.9) 05/31/2014 07/06/2016 documented as of this encounter (statuses as of 03/12/2022) [address]-2015 History of Past illness Narrative* Problem Noted Date Resolved Date Obesity (BMI 30-39.9) 05/31/2014 07/06/2016 documented as of this encounter (statuses as of 03/18/2022) [address]-2015 History of Past illness Narrative* Problem Noted Date Resolved Date Obesity (BMI 30-39.9) 05/31/2014 07/06/2016 documented as of this encounter (statuses as of 03/22/2022) [address]-2015 History of Past illness Narrative* Problem Noted Date Resolved Date Obesity (BMI 30-39.9) 05/31/2014 07/06/2016 documented as of this encounter (statuses as of 03/30/2022) [address]-2015 History of Past illness Narrative* Problem Noted Date Resolved Date Obesity (BMI 30-39.9) 05/31/2014 07/06/2016 documented as of this encounter (statuses as of 03/30/2022) [address]-2015 History of Past illness Narrative* Problem Noted Date Resolved Date Obesity (BMI 30-39.9) 05/31/2014 07/06/2016 documented as of this encounter (statuses as of 04/03/2022) [address]-2015 History of Past illness Narrative* Problem Noted Date Resolved Date Obesity (BMI 30-39.9) 05/31/2014 07/06/2016 documented as of this encounter (statuses as of 04/03/2022) [address]-2015 History of Past illness Narrative* Problem Noted Date Resolved Date Obesity (BMI 30-39.9) 05/31/2014 07/06/2016 documented as of this encounter (statuses as of 04/22/2022) [address]-2015 History of Past illness Narrative* Problem Noted Date Resolved Date Obesity (BMI 30-39.9) 05/31/2014 07/06/2016 documented as of this encounter (statuses as of 04/24/2022) [address]-2015 History of Past illness Narrative* Problem Noted Date Resolved Date Obesity (BMI 30-39.9) 05/31/2014 07/06/2016 documented as of this encounter (statuses as of 05/05/2022) [address]-2015 History of Past illness Narrative* Problem Noted Date Resolved Date Obesity (BMI 30-39.9) 05/31/2014 07/06/2016 documented as of this encounter (statuses as of 05/05/2022) [address]-2015 History of Past illness Narrative* Problem Noted Date Resolved Date Obesity (BMI 30-39.9) 05/31/2014 07/06/2016 documented as of this encounter (statuses as of 05/05/2022) [address]-2015 History of Past illness Narrative* Problem Noted Date Resolved Date Obesity (BMI 30-39.9) 05/31/2014 07/06/2016 documented as of this encounter (statuses as of 05/26/2022) [address]-2015 History of Past illness Narrative* Problem Noted Date Resolved Date Obesity (BMI 30-39.9) 05/31/2014 07/06/2016 documented as of this encounter (statuses as of 05/27/2022) [address]-2015 History of Past illness Narrative* Problem Noted Date Resolved Date Obesity (BMI 30-39.9) 05/31/2014 07/06/2016 documented as of this encounter (statuses as of 07/22/2022) [address]-2015 History of Past illness Narrative* Problem Noted Date Resolved Date Obesity (BMI 30-39.9) 05/31/2014 07/06/2016 documented as of this encounter (statuses as of 07/25/2022) [address]-2015 History of Past illness Narrative* Problem Noted Date Resolved Date Obesity (BMI 30-39.9) 05/31/2014 07/06/2016 documented as of this encounter (statuses as of 07/27/2022) [address]08-2015 History of Past illness Narrative* Problem Noted Date Resolved Date Obesity (BMI 30-39.9) 05/31/2014 07/06/2016 documented as of this encounter (statuses as of 07/28/2022) [address]08-2015 History of Past illness Narrative* Problem Noted Date Resolved Date Obesity (BMI 30-39.9) 05/31/2014 07/06/2016 documented as of this encounter (statuses as of 08/10/2022) [address]08-2015 History of Past illness Narrative* Problem Noted Date Resolved Date Obesity (BMI 30-39.9) 05/31/2014 07/06/2016 documented as of this encounter (statuses as of 08/18/2022) [address]08-2015 History of Past illness Narrative* Problem Noted Date Resolved Date Obesity (BMI 30-39.9) 05/31/2014 07/06/2016 documented as of this encounter (statuses as of 08/19/2022) [address]-2015 History of Past illness Narrative* Problem Noted Date Resolved Date Obesity (BMI 30-39.9) 05/31/2014 07/06/2016 documented as of this encounter (statuses as of 08/27/2022) [address]08-2015 History of Past illness Narrative* Problem Noted Date Resolved Date Obesity (BMI 30-39.9) 05/31/2014 07/06/2016 documented as of this encounter (statuses as of 08/29/2022) [address]08-2015 History of Past illness Narrative* Problem Noted Date Resolved Date Obesity (BMI 30-39.9) 05/31/2014 07/06/2016 documented as of this encounter (statuses as of 08/31/2022) [address]08-2015 History of Past illness Narrative* Problem Noted Date Resolved Date Obesity (BMI 30-39.9) 05/31/2014 07/06/2016 documented as of this encounter (statuses as of 09/08/2022) [address]08-2015 History of Past illness Narrative* Problem Noted Date Resolved Date Obesity (BMI 30-39.9) 05/31/2014 07/06/2016 documented as of this encounter (statuses as of 09/08/2022) [address]08-2015 History of Past illness Narrative* Problem Noted Date Resolved Date Obesity (BMI 30-39.9) 05/31/2014 07/06/2016 documented as of this encounter (statuses as of 09/24/2022) [address]08-2015 History of Past illness Narrative* Problem Noted Date Resolved Date Obesity (BMI 30-39.9) 05/31/2014 07/06/2016 documented as of this encounter (statuses as of 10/22/2022) [address]08-2015 History of Past illness Narrative* Problem Noted Date Resolved Date Obesity (BMI 30-39.9) 05/31/2014 07/06/2016 documented as of this encounter (statuses as of 10/25/2022) [address]08-2015 History of Past illness Narrative* Problem Noted Date Resolved Date Obesity (BMI 30-39.9) 05/31/2014 07/06/2016 documented as of this encounter (statuses as of 11/19/2022) [address]08-2015 History of Past illness Narrative* Problem Noted Date Resolved Date Obesity (BMI 30-39.9) 05/31/2014 07/06/2016 documented as of this encounter (statuses as of 11/25/2022) [address]08-2015 History of Past illness Narrative* Problem Noted Date Diagnosed Date Resolved Date Obesity (BMI 30-39.9) 05/31/20142016 documented as of this encounter (statuses as of 12/08/2022) [address]08-2015 History of Past illness Narrative* Problem Noted Date Diagnosed Date Resolved Date Obesity (BMI 30-39.9) 05/31/20142016 documented as of this encounter (statuses as of 12/18/2022) [address]08-2015 History of Past illness Narrative* Problem Noted Date Diagnosed Date Resolved Date Obesity (BMI 30-39.9) 05/31/20142016 documented as of this encounter (statuses as of 12/18/2022) [address]08-2015 History of Past illness Narrative* Problem Noted Date Diagnosed Date Resolved Date Obesity (BMI 30-39.9) 05/31/20142016 documented as of this encounter (statuses as of 12/21/2022) [address]08-2015 History of Past illness Narrative* Problem Noted Date Diagnosed Date Resolved Date Obesity (BMI 30-39.9) 05/31/20142016 documented as of this encounter (statuses as of 12/22/2022) [address]08-2015 History of Past illness Narrative* Problem Noted Date Diagnosed Date Resolved Date Obesity (BMI 30-39.9) 05/31/20142016 documented as of this encounter (statuses as of 01/02/2023) [address]08-2015 History of Past illness Narrative* Problem Noted Date Diagnosed Date Resolved Date Obesity (BMI 30-39.9) 05/31/20142016 documented as of this encounter (statuses as of 01/13/2023) [address]08-2015 History of Past illness Narrative* Problem Noted Date Diagnosed Date Resolved Date Obesity (BMI 30-39.9) 05/31/20142016 documented as of this encounter (statuses as of 01/22/2023) [address]08-2015 History of Past illness Narrative* Problem Noted Date Diagnosed Date Resolved Date Obesity (BMI 30-39.9) 05/31/20142016 documented as of this encounter (statuses as of 01/26/2023) [address]08-2015 History of Past illness Narrative* Problem Noted Date Diagnosed Date Resolved Date Obesity (BMI 30-39.9) 05/31/20142016 documented as of this encounter (statuses as of 02/04/2023) [address]08-2015 History of Past illness Narrative* Problem Noted Date Diagnosed Date Resolved Date Obesity (BMI 30-39.9) 05/31/20142016 documented as of this encounter (statuses as of 02/04/2023) [address]08-2015 History of Past illness Narrative* Problem Noted Date Diagnosed Date Resolved Date Obesity (BMI 30-39.9) 05/31/20142016 documented as of this encounter (statuses as of 02/07/2023) [address]08-2015 History of Past illness Narrative* Problem Noted Date Diagnosed Date Resolved Date Obesity (BMI 30-39.9) 05/31/20142016 documented as of this encounter (statuses as of 02/08/2023) [address]08-2015 History of Past illness Narrative* Problem Noted Date Diagnosed Date Resolved Date Obesity (BMI 30-39.9) 05/31/20142016 documented as of this encounter (statuses as of 02/16/2023) [address]08-2015 History of Past illness Narrative* Problem Noted Date Diagnosed Date Resolved Date Obesity (BMI 30-39.9) 05/31/20142016 documented as of this encounter (statuses as of 02/19/2023) [address]08-2015 History of Past illness Narrative* Problem Noted Date Diagnosed Date Resolved Date Obesity (BMI 30-39.9) 05/31/20142016 documented as of this encounter (statuses as of 02/21/2023) [address]-2015 History of Past illness Narrative* Problem Noted Date Diagnosed Date Resolved Date Obesity (BMI 30-39.9) 05/31/20142016 documented as of this encounter (statuses as of 03/02/2023) [facility] Diagnosis Other systemic lupus erythematosus with other organ involvement (HCC)- Primary CHRISTIAN positive Other and unspecified nonspecific immunological findings Elevated sed rate Elevated sedimentation rate Vitamin D deficiency Unspecified vitamin D deficiency Vitamin B12 deficiency Other B-complex deficiencies Secondary osteoarthritis of multiple sites Osteoarthrosis involving, or with mention of more than one site, but not specified as generalized, multiple sites Chronic bilateral low back pain with bilateral sciatica Rash and nonspecific skin eruption Rash and other nonspecific skin eruption Chronic pain of toes of both feet Hair loss Alopecia, unspecified Long-term use of Plaquenil 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-term (current) use of other medications Family history of Crohn's disease Family history of other digestive disorders Fibromyalgia Mylagia and myositis, unspecified documented [facility] this encounter [facility] Diagnosis Swelling of lymph nodes- Primary Enlargement of lymph nodes Other systemic lupus erythematosus with other organ involvement (HCC) On prednisone therapy Hair loss Alopecia, unspecified Bilateral sacroiliitis (HCC) Long-term use of Plaquenil 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-term (current) use of other medications documented [facility] Diagnosis Vitamin B12 deficiency- Primary Other B-complex deficiencies Vitamin D deficiency Unspecified vitamin D deficiency Elevated sed rate Elevated sedimentation rate Elevated C-reactive protein (CRP) documented [facility] this encounter [facility]* Diagnosis 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 Other vitamin B12 deficiency anemia Somnolence, daytime Hypersomnia, unspecified Snoring Other dyspnea and respiratory abnormality Chronic fatigue and malaise Chronic fatigue syndrome Obesity, unspecified classification, unspecified obesity type, unspecified whether serious comorbidity present documented [facility] this [facility] Diagnosis Obesity, Class II, BMI 35-39.9- Primary Obesity, unspecified Somnolence, daytime Hypersomnia, unspecified Chronic fatigue and malaise Chronic fatigue syndrome Obesity, unspecified classification, unspecified obesity type, unspecified whether serious comorbidity present Snoring Other dyspnea and respiratory abnormality POTS (postural orthostatic tachycardia syndrome) Tachycardia, unspecified Elevated glucose Other abnormal glucose Raised level of immunoglobulins Other and unspecified nonspecific immunological findings documented [facility] Diagnosis 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 Other vitamin B12 deficiency anemia High total serum IgM [facility]* Diagnosis Raised level of immunoglobulins- Primary Other and unspecified nonspecific immunological findings Wound healing, delayed Open wound(s) (multiple) of unspecified site(s), complicated Current smoker Tobacco use disorder documented [facility] Diagnosis Family history of genetic disease- Primary Family history of other condition documented [facility] Diagnosis High total serum IgM- Primary Elevated sed rate Elevated sedimentation rate Somnolence, daytime Hypersomnia, unspecified JOSE RAFAEL (obstructive sleep apnea) Obstructive sleep apnea (adult) (pediatric) [facility] 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 Other vitamin B12 deficiency anemia Elevated sed rate Elevated sedimentation rate [facility] Diagnosis 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 Other vitamin B12 deficiency anemia Elevated sed rate Elevated sedimentation rate High total serum IgM Chronic fatigue and malaise Chronic fatigue syndrome [facility] JOSE RAFAEL (obstructive sleep apnea)- Primary Obstructive sleep apnea (adult) (pediatric) [facility] Diagnosis Other systemic lupus erythematosus with other organ involvement (HCC)- Primary Family history of Crohn's disease Family history of other digestive disorders Fibromyalgia Mylagia and myositis, unspecified [facility] Diagnosis Other systemic lupus erythematosus with other organ involvement (HCC)- Primary Elevated LFTs Other abnormal blood chemistry Anemia of chronic disease Anemia of other chronic disease 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 buttermaker 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-term (current) use of other medications [facility] Diagnosis 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 Other vitamin B12 deficiency anemia Elevated sed rate Elevated sedimentation rate [facility] Diagnosis 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 Other vitamin B12 deficiency anemia Elevated sed rate Elevated sedimentation rate High total serum IgM Chronic fatigue and malaise Chronic fatigue syndrome JOSE RAFAEL (obstructive sleep apnea) Obstructive sleep apnea (adult) (pediatric) [facility] Vitamin D deficiency Unspecified vitamin D deficiency [facility] Diagnosis Obesity, Class III, BMI >= 40- Primary Morbid obesity Polypharmacy 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-term (current) use of other medications Pre-diabetes Other abnormal glucose [facility] Diagnosis 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 Other vitamin B12 deficiency anemia Elevated sed rate Elevated sedimentation rate [facility] Diagnosis 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 Other vitamin B12 deficiency anemia Elevated sed rate Elevated sedimentation rate documented [facility] [place] Diagnosis 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 Other vitamin B12 deficiency anemia Elevated sed rate Elevated sedimentation rate High total serum IgM Chronic fatigue and malaise Chronic fatigue syndrome Obstructive sleep apnea syndrome Obstructive sleep apnea (adult) (pediatric) documented in this encounter [facility]* Diagnosis 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 Other vitamin B12 deficiency anemia Elevated sed rate Elevated sedimentation rate documented in this encounter [facility]* Diagnosis Other systemic lupus erythematosus with other organ involvement (HCC) 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 buttermaker 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-term (current) use of other medications documented [facility] Diagnosis 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 Other vitamin B12 deficiency anemia Chronic fatigue and malaise Chronic fatigue syndrome documented in this [facility] [place] Diagnosis High total serum IgM- Primary Low serum IgG for age Current smoker Tobacco use disorder documented [facility] this [facility]* Diagnosis Obesity, Class II, BMI 35-39.9 Obesity, unspecified Prediabetes Other abnormal glucose documented in this encounter [facility]* Diagnosis 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 Other vitamin B12 deficiency anemia Elevated sed rate Elevated sedimentation rate [facility] this [facility]* Diagnosis Other systemic lupus erythematosus with other organ involvement (HCC)- Primary Vitamin D deficiency Unspecified vitamin D deficiency Elevated LFTs Other abnormal blood chemistry Anemia of chronic disease Anemia of other chronic disease Elevated sed rate Elevated sedimentation rate Elevated C-reactive protein (CRP) [facility] Diagnosis Other systemic lupus erythematosus with other organ involvement (HCC)- Primary CHRISTIAN positive Other and unspecified nonspecific immunological findings Family history of Crohn's disease Family history of other digestive disorders Fibromyalgia Mylagia and myositis, unspecified Secondary osteoarthritis of multiple sites Osteoarthrosis involving, or with mention of more than one site, but not specified as generalized, multiple sites Chronic bilateral low back pain with bilateral sciatica Chronic pain of toes of both feet Hair loss Alopecia, unspecified Long-term use of Plaquenil 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-term (current) use of other medications Vitamin B12 deficiency Other B-complex deficiencies Long-term use of high-risk medication Discoid lupus erythematosus Lupus erythematosus Vitamin D deficiency Unspecified vitamin D deficiency Elevated sed rate Elevated sedimentation rate Bilateral wrist pain 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, forearm detention 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-term (current) use of steroids Steroid-induced osteoporosis Other osteoporosis 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 [facility] Diagnosis Systemic lupus erythematosus with other organ involvement (HCC)- Primary [facility] Diagnosis 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 Other vitamin B12 deficiency anemia High total serum IgM Elevated sed rate Elevated sedimentation rate [facility] Diagnosis Other systemic lupus erythematosus with other organ involvement (HCC)- Primary [facility] Diagnosis Other systemic lupus erythematosus with other organ involvement (HCC) 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 buttermaker 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-term (current) use of other medications [facility] Diagnosis 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 Other vitamin B12 deficiency anemia Elevated sed rate Elevated sedimentation rate [facility] Diagnosis 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 Other vitamin B12 deficiency anemia Elevated sed rate Elevated sedimentation rate Chronic fatigue and malaise Chronic fatigue syndrome High total serum IgM JOSE RAFAEL (obstructive sleep apnea) Obstructive sleep apnea (adult) (pediatric) [facility] Diagnosis Insulin resistance, unspecified- Primary Depression, recurrent (HCC) Major depressive disorder, recurrent episode, unspecified Chronic pain syndrome [facility] Diagnosis Systemic lupus erythematosus, unspecified SLE type, unspecified organ involvement status (HCC)- Primary [facility] Diagnosis 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 Other vitamin B12 deficiency anemia Elevated sed rate Elevated sedimentation rate documented in this encounter [facility] Diagnosis 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 Other vitamin B12 deficiency anemia Elevated sed rate Elevated sedimentation rate [facility] Diagnosis Obesity, Class III, BMI >= 40- Primary Morbid obesity FUO (fever of unknown origin) Fever, unspecified Other chronic pain [facility]* Diagnosis Obesity, Class III, BMI >= 40 Morbid obesity [facility] Diagnosis Obesity, Class III, BMI >= 40- Primary Morbid obesity Other chronic pain documented in this encounter [facility]* Diagnosis Irregular heart rate- Primary Essential hypertension Unspecified essential hypertension Autonomic dysfunction Obstructive sleep apnea syndrome Obstructive sleep apnea (adult) (pediatric) Primary hypertension Unspecified essential hypertension documented in this encounter [facility] Work Phone: History general Narrative - Reported* Type Description Date Medical History hyperlipidemia Medical History insulin resistance Medical History CMV Surgical History cyst removal pilonidal Surgical History D&C Hospitalization History [employer] Other Reason for referral (narrative)* Diagnostic Procedure Only (Routine) - Pending Review Specialty Diagnoses / Procedures Referred By Contac t Referred To Contact XR IMAGING Diagnoses Steroid-induced osteoporosis Procedures DXA-FOREARM SKELETON DXA BONE DENSITY STUDY 1/>SITES APPENDICLR Lynne Perera MD [address] [place] [address] [place] [id number] Referral ID Status Reason Start Date Expiration Date Visits Requested Visits Authorized [id number] Pending Review Auto-Generat ed Referral 02/04/2023 03/05/2024 1 1 [facility] for referral (narrative)* Consultation (Routine) - Authorized Specialty Diagnoses / Procedures Referred By Contac t Referred To Contact Cardiology Diagnoses Irregular heart rate Essential hypertension Autonomic dysfunction Obstructive sleep apnea syndrome Primary hypertension Procedures Follow Up In Cardiology Michelle Britton, MAURILIO-PSYCH THERAPIST [address] [facility] [address] [place] [address] Aurora Patel MD [address] [facility] [address] [place] [address] Referral ID Status Reason Start Date Expiration Date V isits Requested Visits Authorized [id number] Authorized 06/09/2023 06/08/2024 1 1 * Cardiovascular (Routine) - Pending Review Specialty Diagnoses / Procedures Referred By Contac t Referred To Contact Cardiology Diagnoses Irregular heart rate Procedures Holter Or Event Blood Bank Credit Clerk Michelle Britton APRN-CNP [address] [facility] [address] [place] [address] Referral ID Status Reason Start Date Expiration Date V isits Requested Visits Authorized Pending Review 06/09/2023 06/08/2024 1 1 * CV Imaging (Routine) - Pending Review Specialty Diagnoses / Procedures Referred By Contac t Referred To Contact Cardiology Diagnoses Irregular heart rate Obstructive sleep apnea syndrome Procedures Transthoracic Echo (TTE) Complete LA ECHO TTHRC R-T 2D W/WOM-MODE COMPL SPEC&COLR D Michelle Britton APRN-CNP [facility] [address] [place] [address] Referral ID Status Reason Start Date Expiration Date Visits Requested Visits Authorized Pending Review Perform Procedure 06/09/2023 06/08/2024 1 1 * Cardiovascular (Routine) - Authorized Specialty Diagnoses / Procedures Referred By Contac t Referred To Contact Diagnoses Irregular heart rate Procedures ECG 12 Lead Michelle Britton APRN-CNP [address] [facility] [address] [place] [address] Referral ID Status Reason Start Date Expiration Date V isits Requested Visits Authorized [id number] Authorized 06/09/2023 06/08/2024 1 1 [facility] Work Phone: Summary Purpose Family History No Family History Records FoundNo Family History Records FoundNo Family History Records FoundNo Family History Records FoundNo Family History Records FoundNo Family History Records FoundNo Family History Records FoundNo Family History Records FoundNo Family History Records Found Advance Directives No Advanced Directives Records FoundDocuments on File Type Date Recorded Patient Quantitative Software Engineer Expl anation ACP-Advance Directive ACP-Power of System Developer Associate Manager Latest Code Status on File Code Status Date Activated Date Inactivated Comments Full Code 10/07/2020 8:32 AM Documents on File Type Date Recorded Patient Quantitative Software Engineer Expl anation Advance Directive(s) 09/13/2015 8:36 AM Reason for Referral Specialty Diagnoses / Procedures Referred By Contac t Referred To Contact Diagnoses Obesity, Class III, BMI 40-49.9 (morbid obesity) (HCC) Pre-diabetes Christie Phan MD [address] [place] [address] Referral ID Status Reason Start Date Expiration Date Visits Re quested Visits Authorized [id number] Closed 1 1 Specialty Diagnoses / Procedures Referred By Contac t Referred To Contact Diagnoses Wound healing, delayed Procedures CONSULT TO MEDICAL GENETICS - GENERAL OFFICE/OUTPATIENT [facility] 60-74 MINUTES MEDICAL GENETICS COUNSELING EACH 30 MINUTES Misty Nelson MD [facility] [place] [phone] [facility] [place] [address] [place] [phone] Referral ID Status Reason Start Date Expiration Date Visits Requested Visits Authorized [id number] Authorized PCP Requested Referral Auto-Generate d Referral 2 03/10/2023 1 1 Specialty Diagnoses / Procedures Referred By Contac t Referred To Contact Neurology Diagnoses POTS (postural orthostatic tachycardia syndrome) Procedures CONSULT TO NEUROLOGY OFFICE/OUTPATIENT [facility] 60-74 MINUTES Christie Phan MD [address] [place] [address] Referral ID Status Reason Start Date Expiration Date Visits Requested Visits Authorized [id number] Authorized PCP Requested Referral 2 03/12/2023 1 1 Specialty Diagnoses / Procedures Referred By Contac t Referred To Contact Immunology Diagnoses Raised level of immunoglobulins Procedures CONSULT TO IMMUNOLOGY OFFICE/OUTPATIENT [facility] 60-74 MINUTES Christie Phan MD [address] [place] [phone] Referral ID Status Reason Start Date Expiration Date V isits Requested Visits Authorized [id number] Closed PCP Requested Referral 03/09/2022 03/09/2023 1 1 Specialty Diagnoses / Procedures Referred By Contac t Referred To Contact [facility] Diagnoses Somnolence, daytime Snoring Procedures HOME SLEEP APNEA TEST (HSAT) SLEEP STD AIRFLOW HRT RATE&O2 SAT EFFORT UNATT Christie Phan MD [address] [place] [address] [facility] [place] [address] [place] [address] Referral ID Status Reason Start Date Expiration Date Visits Requested Visits Authorized [id number] Authorized Auto-Generat ed Referral 2 03/09/2023 1 1 Specialty Diagnoses / Procedures Referred By Nahid t Referred To Contact Diagnoses Somnolence, daytime Chronic fatigue and malaise Obesity, unspecified classification, unspecified obesity type, unspecified whether serious comorbidity present Procedures CONSULT TO LIFESTYLE MEDICINE MD OFFICE/OUTPATIENT [facility] 60-74 MINUTES Jose Najera MD [address] [place] [address] [place] [address] Referral ID Status Reason Start Date Expiration Date V isits Requested Visits Authorized [id number] Closed PCP Requested Referral 03/04/2022 03/04/2023 1 1 Specialty Diagnoses / Procedures Referred By Nahid t Referred To Contact Diagnoses Somnolence, daytime Snoring Procedures CONSULT TO SLEEP MEDICINE - ADULT OFFICE/OUTPATIENT [facility] 60-74 MINUTES Jose Najera MD [address] [place] [address] [place] [address] Referral ID Status Reason Start Date Expiration Date Visits Requested Visits Authorized [id number] Authorized PCP Requested Referral 2 03/04/2023 1 1 Medications Administered Section Inactive Administered Medications - up to 3 most recent administrations Medication Order MAR Action Action Date Dose Rate Site cyanocobalamin 1,000 mcg injection 1,000 mcg, INTRAMUSCULAR, ONCE, 1 dose, On Wed05/20/22 at 1430 Given 05/20/2022 2:44 PM EST 1,000 mcg Deltoid, Right Inactive Administered Medications - up to 3 most recent administrations Medication Order MAR Action Action Date Dose Rate Site cyanocobalamin 1,000 mcg injection 1,000 mcg, INTRAMUSCULAR, ONCE, 1 dose, On Wed08/27/22 at 1000 Given 08/27/2022 10:15 AM EDT 1,000 mcg Deltoid, Right Inactive Administered Medications - up to 3 most recent administrations Medication Order MAR Action Action Date Dose Rate Site cyanocobalamin 1,000 mcg injection 1,000 mcg, INTRAMUSCULAR, ONCE, 1 dose, On Wed09/24/22 at 1030 Given 09/24/2022 10:27 AM EDT 1,000 mcg Deltoid, Right Inactive Administered Medications - up to 3 most recent administrations Medication Order MAR Action Action Date Dose Rate Site cyanocobalamin 1,000 mcg injection 1,000 mcg, INTRAMUSCULAR, ONCE, 1 dose, On Wed10/22/22 at 1200 Given 10/22/2022 12:03 PM EDT 1,000 mcg Deltoid, Right Inactive Administered Medications - up to 3 most recent administrations Medication Order MAR Action Action Date Dose Rate Site cyanocobalamin 1,000 mcg injection 1,000 mcg, INTRAMUSCULAR, ONCE, 1 dose, On Wed11/19/22 at 1100 Given 11/19/2022 11:00 AM EDT 1,000 mcg Deltoid, Right Inactive Administered Medications - up to 3 most recent administrations Medication Order MAR Action Action Date Dose Rate Site cyanocobalamin 1,000 mcg injection 1,000 mcg, INTRAMUSCULAR, ONCE, 1 dose, On Wed01/22/23 at 1130 Given 01/22/2023 11:30 AM EDT 1,000 mcg Deltoid, Right Inactive Administered Medications - up to 3 most recent administrations Medication Order MAR Action Action Date Dose Rate Site cyanocobalamin 1,000 mcg injection 1,000 mcg, INTRAMUSCULAR, ONCE, 1 dose, On Wed02/19/23 at 1130 Given 02/19/2023 11:47 AM EDT 1,000 mcg Deltoid, Left Inactive Administered Medications - up to 3 most recent administrations Medication Order MAR Action Action Date Dose Rate Site cyanocobalamin 1,000 mcg injection 1,000 mcg, INTRAMUSCULAR, ONCE, 1 dose, On Wed03/19/23 at 1130 Given 03/19/2023 11:15 AM EDT 1,000 mcg Deltoid, Right Inactive Administered Medications - up to 3 most recent administrations Medication Order MAR Action Action Date Dose Rate Site cyanocobalamin 1,000 mcg injection 1,000 mcg, INTRAMUSCULAR, ONCE, 1 dose, On Wed04/16/23 at 1100 Given 04/16/2023 11:09 AM EST 1,000 mcg Deltoid, Right Additional Source Comments INFORMATION SOURCE (unrecogn ized section and content) DATE CREATED AUTHOR 09/20/2018 [facility] DATE CREATED AUTHOR AUTHOR'S ORGANIZ ATION 09/23/2018 [facility] DATE CREATED AUTHOR AUTHOR'S ORGANIZ ATION 12/10/2018 [facility] DATE CREATED AUTHOR AUTHOR'S ORGANIZ ATION 01/13/2019 [facility] DATE CREATED AUTHOR AUTHOR'S ORGANIZ ATION 06/28/2021 [facility] DATE CREATED AUTHOR AUTHOR'S ORGANIZ ATION 10/01/2022 [facility] DATE CREATED AUTHOR AUTHOR'S ORGANIZ ATION 06/02/2023 [facility] DATE CREATED AUTHOR AUTHOR'S ORGANIZ ATION 06/10/2023 [facility] DATE CREATED AUTHOR AUTHOR'S ORGANIZ ATION 06/18/2023 [facility] Reason for Visit (unrecogniz ed section and content) Status Reason Specialty Diagnoses / Procedures Referre d By Contact Referred To Contact [facility] Reason Comments Pain ongoing generalized pain. Reason Comments New Reason Comments Opened In Error Reason Comments Results Reason Comments Abnormal labs New patient consult Reason Comments New Patient Virtual visit Specialty Diagnoses / Procedures Referred By Contac t Referred To Contact Diagnoses Somnolence, daytime Chronic fatigue and malaise Obesity, unspecified classification, unspecified obesity type, unspecified whether serious comorbidity present Procedures CONSULT TO LIFESTYLE MEDICINE MD OFFICE/OUTPATIENT NEW HIGH MDM 60-74 MINUTES Jose Najera MD [address] [place] [address] [place] [address] Referral ID Status Reason Start Date Expiration Date V isits Requested Visits Authorized [id number] Closed PCP Requested Referral 03/04/2022 03/04/2023 1 1 Reason Comments High Total serum IgM Anemia Reason Comments Consult Specialty Diagnoses / Procedures Referred By Contac t Referred To Contact Immunology Diagnoses Raised level of immunoglobulins Procedures CONSULT TO IMMUNOLOGY OFFICE/OUTPATIENT NEW HIGH MDM 60-74 MINUTES Christie Phan MD [address] [place] [id number] Referral ID Status Reason Start Date Expiration Date V isits Requested Visits Authorized [id number] Closed PCP Requested Referral 03/09/2022 03/09/2023 1 1 Reason Comments Pneumovax Reason Comments Refill Request Reason Comments 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 - 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 Reason Comments Future Appointment Scheduling questions /concerns Reason Comments PAP Therapy Follow Up Reason Comments PAP Rx Faxed DME Josh Seo Reason Comments Anemia 8 week follow up Reason Comments Orders Lab Orders Be fore Appointment Reason Comments Sleep Apnea Reason Comments Anemia Reason Comments Pain Weight Management Reason Comments Reason Comments Care Coordination appointment Reason Comments Established Patient Reason Comments Appointment Reason Comments Follow Up Reason Onset Date Comments Refill Request 12/24/2022 Reason Comments SLE Reason Onset Date Comments SPP Inflammatory Conditions - Treatment Referral 02/04/2023 [employer] Insurance Authorization 02/04/2023 [place] submi ssion pending Reason Comments Appointment Orders Medication Authorization Reason Comments Results Eye Exam Reason Comments Allied Health Visit [employer] teaching Reason Comments CMN Reason Comments Established Patient Follow-Up Reason Comments Weight Management Reason Comments New Patient Visit HEART RATE/ BP Specialty Diagnoses / Procedures Referred By Contac t Referred To Contact Diagnoses Irregular heart rate Procedures ECG 12 Lead Michelle Britton, MANAGER COUNTRY-PSYCH THERAPIST [address] [facility] [address] [place] [address] Referral ID Status Reason Start Date Expiration Date V isits Requested Visits Authorized [id number] Authorized 06/09/2023 06/08/2024 1 1 Ordered Prescriptions (unrec ognized section and content) Prescription Sig Dispensed Refills Start Date End Da te nitroGLYCERIN (NITROSTAT) 0.[address] 1 tablet under the tongue every 5 minutes as needed for Chest pain up to max of 3 total doses. If no relief after 1 dose, call 911. 25 tablet 3 10/07/2020 amLODIPine (NORVASC) 2.5 MG tablet Take 1 tablet by mouth daily 30 tablet 3 10/07/2020 Source Comments (unrecognize d section and content) In the event this informatio n is protected by the Federal Confidentiality of Alcohol and Drug Abuse Patient Records regulations: The Federal rules restrict any use of the information to criminally investigate or prosecute any alcohol or drug abuse patient.[facility] the event this information is protected by the Federal Confidentiality of Alcohol and Drug Abuse Patient Records regulations: The Federal rules restrict any use of the information to criminally investigate or prosecute any alcohol or drug abuse patient.[facility] the event this information is protected by the Federal Confidentiality of Alcohol and Drug Abuse Patient Records regulations: The Federal rules restrict any use of the information to criminally investigate or prosecute any alcohol or drug abuse patient.[facility] the event this information is protected by the Federal Confidentiality of Alcohol and Drug Abuse Patient Records regulations: The Federal rules restrict any use of the information to criminally investigate or prosecute any alcohol or drug abuse patient.[facility] the event this information is protected by the Federal Confidentiality of Alcohol and Drug Abuse Patient Records regulations: The Federal rules restrict any use of the information to criminally investigate or prosecute any alcohol or drug abuse patient.[facility] the event this information is protected by the Federal Confidentiality of Alcohol and Drug Abuse Patient Records regulations: The Federal rules restrict any use of the information to criminally investigate or prosecute any alcohol or drug abuse patient.[facility] the event this information is protected by the Federal Confidentiality of Alcohol and Drug Abuse Patient Records regulations: The Federal rules restrict any use of the information to criminally investigate or prosecute any alcohol or drug abuse patient.[facility] the event this information is protected by the Federal Confidentiality of Alcohol and Drug Abuse Patient Records regulations: The Federal rules restrict any use of the information to criminally investigate or prosecute any alcohol or drug abuse patient.[facility] the event this information is protected by the Federal Confidentiality of Alcohol and Drug Abuse Patient Records regulations: The Federal rules restrict any use of the information to criminally investigate or prosecute any alcohol or drug abuse patient.[facility] the event this information is protected by the Federal Confidentiality of Alcohol and Drug Abuse Patient Records regulations: The Federal rules restrict any use of the information to criminally investigate or prosecute any alcohol or drug abuse patient.[facility] the event this information is protected by the Federal Confidentiality of Alcohol and Drug Abuse Patient Records regulations: The Federal rules restrict any use of the information to criminally investigate or prosecute any alcohol or drug abuse patient.[facility] the event this information is protected by the Federal Confidentiality of Alcohol and Drug Abuse Patient Records regulations: The Federal rules restrict any use of the information to criminally investigate or prosecute any alcohol or drug abuse patient.[facility] the event this information is protected by the Federal Confidentiality of Alcohol and Drug Abuse Patient Records regulations: The Federal rules restrict any use of the information to criminally investigate or prosecute any alcohol or drug abuse patient.[facility] the event this information is protected by the Federal Confidentiality of Alcohol and Drug Abuse Patient Records regulations: The Federal rules restrict any use of the information to criminally investigate or prosecute any alcohol or drug abuse patient.[facility] the event this information is protected by the Federal Confidentiality of Alcohol and Drug Abuse Patient Records regulations: The Federal rules restrict any use of the information to criminally investigate or prosecute any alcohol or drug abuse patient.[facility] the event this information is protected by the Federal Confidentiality of Alcohol and Drug Abuse Patient Records regulations: The Federal rules restrict any use of the information to criminally investigate or prosecute any alcohol or drug abuse patient.[facility]In the event this information is protected by the Federal Confidentiality of Alcohol and Drug Abuse Patient Records regulations: The Federal rules restrict any use of the information to criminally investigate or prosecute any alcohol or drug abuse patient.[facility] the event this information is protected by the Federal Confidentiality of Alcohol and Drug Abuse Patient Records regulations: The Federal rules restrict any use of the information to criminally investigate or prosecute any alcohol or drug abuse patient.[facility]In the event this information is protected by the Federal Confidentiality of Alcohol and Drug Abuse Patient Records regulations: The Federal rules restrict any use of the information to criminally investigate or prosecute any alcohol or drug abuse patient.[facility]In the event this information is protected by the Federal Confidentiality of Alcohol and Drug Abuse Patient Records regulations: The Federal rules restrict any use of the information to criminally investigate or prosecute any alcohol or drug abuse patient.[facility]In the event this information is protected by the Federal Confidentiality of Alcohol and Drug Abuse Patient Records regulations: The Federal rules restrict any use of the information to criminally investigate or prosecute any alcohol or drug abuse patient.[facility]In the event this information is protected by the Federal Confidentiality of Alcohol and Drug Abuse Patient Records regulations: The Federal rules restrict any use of the information to criminally investigate or prosecute any alcohol or drug abuse patient.[facility]In the event this information is protected by the Federal Confidentiality of Alcohol and Drug Abuse Patient Records regulations: The Federal rules restrict any use of the information to criminally investigate or prosecute any alcohol or drug abuse patient.[facility]In the event this information is protected by the Federal Confidentiality of Alcohol and Drug Abuse Patient Records regulations: The Federal rules restrict any use of the information to criminally investigate or prosecute any alcohol or drug abuse patient.[facility]In the event this information is protected by the Federal Confidentiality of Alcohol and Drug Abuse Patient Records regulations: The Federal rules restrict any use of the information to criminally investigate or prosecute any alcohol or drug abuse patient.[facility]In the event this information is protected by the Federal Confidentiality of Alcohol and Drug Abuse Patient Records regulations: The Federal rules restrict any use of the information to criminally investigate or prosecute any alcohol or drug abuse patient.[facility]onIn the event this information is protected by the Federal Confidentiality of Alcohol and Drug Abuse Patient Records regulations: The Federal rules restrict any use of the information to criminally investigate or prosecute any alcohol or drug abuse patient.[facility], [place]In the event this information is protected by the Federal Confidentiality of Alcohol and Drug Abuse Patient Records regulations: The Federal rules restrict any use of the information to criminally investigate or prosecute any alcohol or drug abuse patient.[facility] the event this information is protected by the Federal Confidentiality of Alcohol and Drug Abuse Patient Records regulations: The Federal rules restrict any use of the information to criminally investigate or prosecute any alcohol or drug abuse patient.[facility], [place]In the event this information is protected by the Federal Confidentiality of Alcohol and Drug Abuse Patient Records regulations: The Federal rules restrict any use of the information to criminally investigate or prosecute any alcohol or drug abuse patient.[facility], [place]In the event this information is protected by the Federal Confidentiality of Alcohol and Drug Abuse Patient Records regulations: The Federal rules restrict any use of the information to criminally investigate or prosecute any alcohol or drug abuse patient.[facility], [place]In the event this information is protected by the Federal Confidentiality of Alcohol and Drug Abuse Patient Records regulations: The Federal rules restrict any use of the information to criminally investigate or prosecute any alcohol or drug abuse patient.[facility], [place]In the event this information is protected by the Federal Confidentiality of Alcohol and Drug Abuse Patient Records regulations: The Federal rules restrict any use of the information to criminally investigate or prosecute any alcohol or drug abuse patient.[facility], [place]In the event this information is protected by the Federal Confidentiality of Alcohol and Drug Abuse Patient Records regulations: The Federal rules restrict any use of the information to criminally investigate or prosecute any alcohol or drug abuse patient.[facility], [place]In the event this information is protected by the Federal Confidentiality of Alcohol and Drug Abuse Patient Records regulations: The Federal rules restrict any use of the information to criminally investigate or prosecute any alcohol or drug abuse patient.[facility], [place]In the event this information is protected by the Federal Confidentiality of Alcohol and Drug Abuse Patient Records regulations: The Federal rules restrict any use of the information to criminally investigate or prosecute any alcohol or drug abuse patient.[facility], [place]In the event this information is protected by the Federal Confidentiality of Alcohol and Drug Abuse Patient Records regulations: The Federal rules restrict any use of the information to criminally investigate or prosecute any alcohol or drug abuse patient.[facility], [place]In the event this information is protected by the Federal Confidentiality of Alcohol and Drug Abuse Patient Records regulations: The Federal rules restrict any use of the information to criminally investigate or prosecute any alcohol or drug abuse patient.[facility], [place]In the event this information is protected by the Federal Confidentiality of Alcohol and Drug Abuse Patient Records regulations: The Federal rules restrict any use of the information to criminally investigate or prosecute any alcohol or drug abuse patient.[facility], [place]In the event this information is protected by the Federal Confidentiality of Alcohol and Drug Abuse Patient Records regulations: The Federal rules restrict any use of the information to criminally investigate or prosecute any alcohol or drug abuse patient.[facility], [place]In the event this information is protected by the Federal Confidentiality of Alcohol and Drug Abuse Patient Records regulations: The Federal rules restrict any use of the information to criminally investigate or prosecute any alcohol or drug abuse patient.[facility], [place]In the event this information is protected by the Federal Confidentiality of Alcohol and Drug Abuse Patient Records regulations: The Federal rules restrict any use of the information to criminally investigate or prosecute any alcohol or drug abuse patient.[facility], [place]In the event this information is protected by the Federal Confidentiality of Alcohol and Drug Abuse Patient Records regulations: The Federal rules restrict any use of the information to criminally investigate or prosecute any alcohol or drug abuse patient.[facility], [place]In the event this information is protected by the Federal Confidentiality of Alcohol and Drug Abuse Patient Records regulations: The Federal rules restrict any use of the information to criminally investigate or prosecute any alcohol or drug abuse patient.[facility], [place]In the event this information is protected by the Federal Confidentiality of Alcohol and Drug Abuse Patient Records regulations: The Federal rules restrict any use of the information to criminally investigate or prosecute any alcohol or drug abuse patient.[facility], [place]In the event this information is protected by the Federal Confidentiality of Alcohol and Drug Abuse Patient Records regulations: The Federal rules restrict any use of the information to criminally investigate or prosecute any alcohol or drug abuse patient.[facility], [place]In the event this information is protected by the Federal Confidentiality of Alcohol and Drug Abuse Patient Records regulations: The Federal rules restrict any use of the information to criminally investigate or prosecute any alcohol or drug abuse patient.[facility], [place]In the event this information is protected by the Federal Confidentiality of Alcohol and Drug Abuse Patient Records regulations: The Federal rules restrict any use of the information to criminally investigate or prosecute any alcohol or drug abuse patient.[facility], [place]In the event this information is protected by the Federal Confidentiality of Alcohol and Drug Abuse Patient Records regulations: The Federal rules restrict any use of the information to criminally investigate or prosecute any alcohol or drug abuse patient.[facility], [place]In the event this information is protected by the Federal Confidentiality of Alcohol and Drug Abuse Patient Records regulations: The Federal rules restrict any use of the information to criminally investigate or prosecute any alcohol or drug abuse patient.[facility], [place]In the event this information is protected by the Federal Confidentiality of Alcohol and Drug Abuse Patient Records regulations: The Federal rules restrict any use of the information to criminally investigate or prosecute any alcohol or drug abuse patient.[facility], [place]In the event this information is protected by the Federal Confidentiality of Alcohol and Drug Abuse Patient Records regulations: The Federal rules restrict any use of the information to criminally investigate or prosecute any alcohol or drug abuse patient.[facility], [place]In the event this information is protected by the Federal Confidentiality of Alcohol and Drug Abuse Patient Records regulations: The Federal rules restrict any use of the information to criminally investigate or prosecute any alcohol or drug abuse patient.[facility], [place]In the event this information is protected by the Federal Confidentiality of Alcohol and Drug Abuse Patient Records regulations: The Federal rules restrict any use of the information to criminally investigate or prosecute any alcohol or drug abuse patient.[facility], [place]In the event this information is protected by the Federal Confidentiality of Alcohol and Drug Abuse Patient Records regulations: The Federal rules restrict any use of the information to criminally investigate or prosecute any alcohol or drug abuse patient.[facility], [place]In the event this information is protected by the Federal Confidentiality of Alcohol and Drug Abuse Patient Records regulations: The Federal rules restrict any use of the information to criminally investigate or prosecute any alcohol or drug abuse patient.[facility], [place]In the event this information is protected by the Federal Confidentiality of Alcohol and Drug Abuse Patient Records regulations: The Federal rules restrict any use of the information to criminally investigate or prosecute any alcohol or drug abuse patient.[facility], [place]In the event this information is protected by the Federal Confidentiality of Alcohol and Drug Abuse Patient Records regulations: The Federal rules restrict any use of the information to criminally investigate or prosecute any alcohol or drug abuse patient.[facility], [place]In the event this information is protected by the Federal Confidentiality of Alcohol and Drug Abuse Patient Records regulations: The Federal rules restrict any use of the information to criminally investigate or prosecute any alcohol or drug abuse patient.[facility], [place]In the event this information is protected by the Federal Confidentiality of Alcohol and Drug Abuse Patient Records regulations: The Federal rules restrict any use of the information to criminally investigate or prosecute any alcohol or drug abuse patient.[facility], [place]In the event this information is protected by the Federal Confidentiality of Alcohol and Drug Abuse Patient Records regulations: The Federal rules restrict any use of the information to criminally investigate or prosecute any alcohol or drug abuse patient.[facility], [place]In the event this information is protected by the Federal Confidentiality of Alcohol and Drug Abuse Patient Records regulations: The Federal rules restrict any use of the information to criminally investigate or prosecute any alcohol or drug abuse patient.[facility], [place]In the event this information is protected by the Federal Confidentiality of Alcohol and Drug Abuse Patient Records regulations: The Federal rules restrict any use of the information to criminally investigate or prosecute any alcohol or drug abuse patient.[facility], [place]In the event this information is protected by the Federal Confidentiality of Alcohol and Drug Abuse Patient Records regulations: The Federal rules restrict any use of the information to criminally investigate or prosecute any alcohol or drug abuse patient.[facility], [place]In the event this information is protected by the Federal Confidentiality of Alcohol and Drug Abuse Patient Records regulations: The Federal rules restrict any use of the information to criminally investigate or prosecute any alcohol or drug abuse patient.[facility], [place]In the event this information is protected by the Federal Confidentiality of Alcohol and Drug Abuse Patient Records regulations: The Federal rules restrict any use of the information to criminally investigate or prosecute any alcohol or drug abuse patient.[facility] [place] Care Teams (unrecognized sec tion and content) Spotter Driver Relationship Specialty Start Date End Date Gay Enciso, MANAGER COUNTRY.PSYCH THERAPIST [address] [place] [address] PCP - General Family Practice 10/24/21 Spotter Driver Relationship Specialty Start Date End Date Gay Enciso, MANAGER COUNTRY.PSYCH THERAPIST [address] [place] [address] PCP - General Family Medicine 10/24/21 Madelaine Ferris MD [address] [place] [address] Referring Family Medicine 02/12/22 Spotter Driver Relationship Specialty Start Date End Date Madelaine Ferris MD [address] [facility] [place] [address] PCP - General Family Medicine 02/27/22 Madelaine Ferris MD [address] [facility] [place] [address] Referring Family Medicine 02/12/22 Spotter Driver Relationship Specialty Start Date End Date Madelaine Ferris MD [address] [facility] [place] [address] PCP - General Family Medicine 02/27/22 Madelaine Ferris MD [address] [facility] [place] [address] Referring Family Medicine 02/12/22 Spotter Driver Relationship Specialty Start Date End Date Madelaine Ferris MD [address] [facility] [place] [address] PCP - General Family Medicine 02/27/22 Madelaine Ferrsi MD [address] [facility] [place] [address] Referring Family Medicine 02/12/22 Spotter Driver Relationship Specialty Start Date End Date Madelaine Ferris MD [address] [facility] [place] [address] PCP - General Family Medicine 02/27/22 Madelaine Ferris MD [address] [facility] [place] [address] Referring Family Medicine 02/12/22 Spotter Driver Relationship Specialty Start Date End Date Madelaine Ferris MD [address] [facility] [place] [address] PCP - General Family Medicine 02/27/22 Madelaine Ferris MD [address] [facility] Referring Family Medicine 02/12/22 Spotter Driver Relationship Specialty Start Date End Date Madelaine Ferris MD [address] [facility] [place] [address] PCP - General Family Medicine 02/27/22 Madelaine Ferris MD [address] [facility] [place] [address] Referring Family Medicine 02/12/22 Spotter Driver Relationship Specialty Start Date End Date Madelaine Ferris MD [address] [facility] [place] [address] PCP - General Family Medicine 02/27/22 Madelaine Ferris MD [address] [facility] [place] [address] Referring Family Medicine 02/12/22 Spotter Driver Relationship Specialty Start Date End Date Madelaine Ferris MD [address] [facility] [place] [address] PCP - General Family Medicine 02/27/22 Madelaine Ferris MD [address] [facility] [place] [address] Referring Family Medicine 02/12/22 Spotter Driver Relationship Specialty Start Date End Date Madelaine Ferris MD [address] [facility] [place] [address] PCP - General Family Medicine 02/27/22 Madelaine Ferris MD [address] [facility] [place] [address] Referring Family Medicine 02/12/22 Spotter Driver Relationship Specialty Start Date End Date Madelaine Ferris MD [address] [facility] [place] [address] PCP - General Family Medicine 02/27/22 Madelaine Ferris MD [address] [facility] [place] [address] Referring Family Medicine 02/12/22 Spotter Driver Relationship Specialty Start Date End Date Madelaine Ferris MD [address] [facility] [place] [address] PCP - General Family Medicine 02/27/22 Madelaine Ferris MD [address] [facility] [place] [address] Referring Family Medicine 02/12/22 Spotter Driver Relationship Specialty Start Date End Date Madelaine Ferris MD [address] [facility] [place] [address] PCP - General Family Medicine 02/27/22 Madelaine Ferris MD [address] [facility] [place] [address] Referring Family Medicine 02/12/22 Spotter Driver Relationship Specialty Start Date End Date Madelaine Ferris MD [address] [facility] [place] [address] PCP - General Family Medicine 02/27/22 Madelaine Ferris MD [address] [facility] [place] [address] Referring Family Medicine 02/12/22 Spotter Driver Relationship Specialty Start Date End Date Madelaine Ferris MD [address] [facility] [place] [address] PCP - General Family Medicine 02/27/22 Madelaine Ferris MD [address] [facility] [place] [address] Referring Family Medicine 02/12/22 Spotter Driver Relationship Specialty Start Date End Date Madelaine Ferris MD [address] [facility] [place] [address] PCP - General Family Medicine 02/27/22 Madelaine Ferris MD [address] [facility] [place] [address] Referring Family Medicine 02/12/22 Spotter Driver Relationship Specialty Start Date End Date Madelaine Ferris MD [address] [facility] [place] [address] PCP - General Family Medicine 02/27/22 Madelaine Ferris MD [address] [facility] [place] [address] Referring Family Medicine 02/12/22 Spotter Driver Relationship Specialty Start Date End Date Madelaine Ferris MD [address] [facility] [place] [address] PCP - General Family Medicine 02/27/22 Madelaine Ferris MD [address] [facility] [place] [address] Referring Family Medicine 02/12/22 Spotter Driver Relationship Specialty Start Date End Date Madelaine Ferris MD [address] [facility] [place] [address] PCP - General Family Medicine 02/27/22 Madelaine Ferris MD [address] [facility] [place] [address] Referring Family Medicine 02/12/22 Spotter Driver Relationship Specialty Start Date End Date Madelaine Ferris MD [address] [facility] [place] [address] PCP - General Family Medicine 02/27/22 Madelaine Ferris MD [address] [facility] [place] [address] Referring Family Medicine 02/12/22 Spotter Driver Relationship Specialty Start Date End Date Madelaine Ferris MD [address] [facility] [place] [address] PCP - General Family Medicine 02/27/22 Madelaine Ferris MD [address] [facility] [place] [address] Referring Family Medicine 02/12/22 Spotter Driver Relationship Specialty Start Date End Date Madelaine Ferris MD [address] [facility] [place] [address] PCP - General Family Medicine 02/27/22 Madelaine Ferris MD [address] [facility] [place] [address] Referring Family Medicine 02/12/22 Spotter Driver Relationship Specialty Start Date End Date Madelaine Ferris MD PCP - General Family Medicine 02/27/22 Madelaine Ferris MD Referring Family Medicine 02/12/22 Spotter Driver Relationship Specialty Start Date End Date Madelaine Ferris MD PCP - General Family Medicine 02/27/22 Madelaine Ferris MD Referring Family Medicine 02/12/22 Spotter Driver Relationship Specialty Start Date End Date Madelaine Ferris MD PCP - General Family Medicine 02/27/22 Madelaine Ferris MD Referring Family Medicine 02/12/22 Spotter Driver Relationship Specialty Start Date End Date Madelaine Ferris MD PCP - General Family Medicine 02/27/22 Madelaine Ferris MD Referring Family Medicine 02/12/22 Spotter Driver Relationship Specialty Start Date End Date Madelaine Ferris MD PCP - General Family Medicine 02/27/22 Madelaine Ferris MD Referring Family Medicine 02/12/22 Spotter Driver Relationship Specialty Start Date End Date Madelaine Ferris MD PCP - General Family Medicine 02/27/22 Madelaine Ferris MD Referring Family Medicine 02/12/22 Spotter Driver Relationship Specialty Start Date End Date Madelaine Ferris MD PCP - General Family Medicine 02/27/22 Madelaine Ferris MD Referring Family Medicine 02/12/22 Spotter Driver Relationship Specialty Start Date End Date Madelaine Ferris MD PCP - General Family Medicine 02/27/22 Madelaine Ferris MD Referring Family Medicine 02/12/22 Spotter Driver Relationship Specialty Start Date End Date Madelaine Ferris MD PCP - General Family Medicine 02/27/22 Madelaine Ferris MD Referring Family Medicine 02/12/22 Spotter Driver Relationship Specialty Start Date End Date Madelaine Ferris MD PCP - General Family Medicine 02/27/22 Madelaine Ferris MD Referring Family Medicine 02/12/22 Spotter Driver Relationship Specialty Start Date End Date Madelaine Ferris MD PCP - General Family Medicine 02/27/22 Madelaine Ferris MD Referring Family Medicine 02/12/22 Spotter Driver Relationship Specialty Start Date End Date Madelaine Ferris MD PCP - General Family Medicine 02/27/22 Madelaine Ferris MD Referring Family Medicine 02/12/22 Spotter Driver Relationship Specialty Start Date End Date Madelaine Ferris MD PCP - General Family Medicine 02/27/22 Madelaine Ferris MD Referring Family Medicine 02/12/22 Spotter Driver Relationship Specialty Start Date End Date Madelaine Ferris MD PCP - General Family Medicine 02/27/22 Madelaine Ferris MD Referring Family Medicine 02/12/22 Spotter Driver Relationship Specialty Start Date End Date Madelaine Ferris MD PCP - General Family Medicine 02/27/22 Madelaine Ferris MD Referring Family Medicine 02/12/22 Spotter Driver Relationship Specialty Start Date End Date Madelaine Ferris MD PCP - General Family Medicine 02/27/22 Madelaine Ferris MD Referring Family Medicine 02/12/22 Spotter Driver Relationship Specialty Start Date End Date Madelaine Ferris MD PCP - General Family Medicine 02/27/22 Madelaine Ferris MD Referring Family Medicine 02/12/22 Spotter Driver Relationship Specialty Start Date End Date Madelaine Ferris MD PCP - General Family Medicine 02/27/22 Madelaine Ferris MD Referring Family Medicine 02/12/22 Spotter Driver Relationship Specialty Start Date End Date Madelaine Ferris MD PCP - General Family Medicine 02/27/22 Madelaine Ferris MD Referring Family Medicine 02/12/22 Spotter Driver Relationship Specialty Start Date End Date Madelaine Ferris MD PCP - General Family Medicine 02/27/22 Madelaine Ferris MD Referring Family Medicine 02/12/22 Spotter Driver Relationship Specialty Start Date End Date Madelaine Ferris MD PCP - General Family Medicine 02/27/22 Madelaine Ferris MD Referring Family Medicine 02/12/22 Spotter Driver Relationship Specialty Start Date End Date Madelaine Ferris MD PCP - General Family Medicine 02/27/22 Madelaine Ferrsi MD Referring Family Medicine 02/12/22 Spotter Driver Relationship Specialty Start Date End Date Madelaine Ferris MD PCP - General Family Medicine 02/27/22 Madelaine Ferris MD Referring Family Medicine 02/12/22 Spotter Driver Relationship Specialty Start Date End Date Madelaine Ferris MD PCP - General Family Medicine 02/27/22 Madelaine Ferris MD Referring Family Medicine 02/12/22 Spotter Driver Relationship Specialty Start Date End Date Madelaine Ferris MD PCP - General Family Medicine 02/27/22 Madelaine Ferris MD Referring Family Medicine 02/12/22 Spotter Driver Relationship Specialty Start Date End Date Madelaine Ferris MD PCP - General Family Medicine 02/27/22 Madelaine Ferris MD Referring Family Medicine 02/12/22 Spotter Driver Relationship Specialty Start Date End Date Charles Mitchell DO [address] [place] [address] PCP - General 10/22/18 Michelle Britton, MANAGER COUNTRY-PSYCH THERAPIST [address] [place] [address] [address] [place] [address] Nurse Practitioner Cardiology 06/08/23 FOR RECORDS PERTAINING TO PATIENTS WHO ARE OR HAVE BEEN ENROLLED IN A CHEMICAL DEPENDENCY/SUBSTANCEABUSE PROGRAM, SOME INFORMATION MAY BE OMITTED. This clinical summary was aggregated from multiple sources. Caution should be exercised in using it in the provision of clinical care. This summary normalizes information from multiple sources, and as a consequence, information in this document may materially change the coding, format and clinical context of patient data. In addition, data may be omitted in some cases. CLINICAL DECISIONS SHOULD BE BASED ON THE PRIMARY CLINICAL RECORDS. [facility] [employer] provides no warranty or guarantee of the accuracy or completeness of information in this document.
[2023-06-26 18:39] VITALS: BP 165/95; PULSE 80; RESP 22; TEMP 36.8; O2SAT 98; BMI 43.9
--- NOTE | 2023-06-26 18:44 | ECG_ITS ---
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
--- NOTE | 2023-06-26 18:52 | CT_ITS ---
[address] [place], [place] [address] Patient Name: JONES HALEY MRN: [id number] date: 1980 Sex: F Assigned Patient Location: ER Current Patient Location: ED.MAIN Accession/Order Number: [id number] Exam Date: 06/26/2023 21:09 Report Date: 06/26/2023 22:13 At the request of: BHARGAV MURPHY Procedure: CT abdomen pelvis w con EXAM: CT abdomen pelvis w con HISTORY: abdominal pain COMPARISON: 12/18/2022 TECHNIQUE: CT of the abdomen and pelvis with intravenous contrast. Dose reduction techniques were achieved by using automated exposure control and/or adjustment of mA and/or kV according to patient size and/or use of iterative reconstruction technique. FINDINGS: TUBES AND IMPLANTS: None. LOWER CHEST: Unremarkable ABDOMEN and PELVIS ABDOMINAL WALL AND SOFT TISSUES: Unremarkable. BONES: No suspicious lesions. Multilevel degenerative changes of the spine. ARTERIES: No aortoiliac aneurysm VEINS: Unremarkable. LYMPH NODES: Unremarkable. PERITONEUM/ RETROPERITONEUM: Unremarkable. BOWEL: No obstruction APPENDIX: Unremarkable LIVER: No suspicious lesions. GALLBLADDER: Unremarkable. BILE DUCTS: Not dilated SPLEEN: Unremarkable. PANCREAS: Unremarkable. ADRENALS: Unremarkable. KIDNEYS/ URETERS: No stones or hydronephrosis REPRODUCTIVE ORGANS: Unremarkable URINARY BLADDER: Unremarkable. CT/CT abdomen pelvis w con IMPRESSION: No acute abdominopelvic process is identified. Electronically authenticated by: OLIVIA ARTEAGA Date: 06/26/2023 22:13
[2023-06-26] MEDS: 0.9 % SODIUM CHLORIDE 1,000 ML 999 ML IV (20:00)
--- NOTE | 2023-06-26 20:10 | ED_ITS ---
HPI - Abdominal Pain General Chief Complaint: Abdominal Pain Stated Complaint: a lot of pressure in stomach Time Seen by Provider: 06/26/23 18:51 Source: patient Mode of arrival: walk-in Limitations: no limitations History of Present Illness HPI narrative: Patient is a 42-year-old female who presents to the emergency department for the evaluation of abdominal pain ongoing for the last 3 to 4 weeks. She states that she was on antibiotics about 1 month ago, she took clindamycin for possible MRSA and an abscess. She states today she has had an increase in pain associated with multiple episodes of diarrhea. She denies any fevers, chills, vomiting. She denies any blood in her stool. She saw her PCP for the pressure in the abdomen 2 days ago, she had outpatient labs and x-rays that were unremarkable. She was not started on any new medications. No sick contacts in the home. No previous abdominal surgeries. She is not concerned for . Related Data Home Medications Medication Instructions Recorded Confirmed 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 50 mg tablet 150 mg PO DAILY 12/18/22 06/26/23 clindamycin phosphate 1 % topical 1 applic topical DAILY 12/18/22 06/26/23 gel clobetasol 0.05 % shampoo 1 applic topical .4 times weekly 12/18/22 06/26/23 ergocalciferol (vitamin D2) 1,250 1,250 mcg PO .3 times weekly 12/18/22 06/26/23 mcg (50,000 unit) capsule fluocinonide 0.05 % topical 1 applic topical BID 12/18/22 06/26/23 solution folic acid 1 mg tablet 1 mg PO DAILY 12/18/22 06/26/23 hydroxychloroquine 200 mg tablet 200 mg PO BID 12/18/22 06/26/23 metoprolol tartrate 25 mg tablet 100 mg PO Q12H 12/18/22 06/26/23 prednisone 10 mg tablet 10 mg PO DAILY 12/18/22 06/26/23 pregabalin 75 mg capsule 75 mg PO Q8H 12/18/22 06/26/23 tacrolimus 0.1 % topical ointment 1 applic topical Q12H PRN forehead 12/18/22 06/26/23 Previous Rx's Medication Instructions Recorded hyoscyamine sulfate 0.125 mg 0.125 mg PO Q6H PRN abdominal pain 06/26/23 tablet (Levsin) #12 tabs magnesium citrate (Citrate of 296 ml PO DAILY constipation #296 06/26/23 Magnesia oral) mL ondansetron 4 mg disintegrating 4 mg PO Q6H PRN nausea and 06/26/23 tablet vomiting #12 tabs Allergies Allergy/AdvReac Type Severity Reaction Status Date / Time Bactrim Allergy Intermediate Uncoded 12/18/22 23:12 Review of Systems ROS Constitutional Denies: fever or chills Eyes Denies: change in vision Ears, nose, mouth, and throat Denies: throat pain or nasal congestion Respiratory Denies: shortness of breath Gastrointestinal Reports: abdominal pain and diarrhea; Denies: vomiting Genitourinary Denies: painful urination Musculoskeletal Denies: back pain Integumentary/Breast Denies: rash Neurological Denies: headache Hematologic/Lymphatic Denies: easy bruising PFSH PFS Social History Smoking status: Current every day smoker Exam Narrative Exam Narrative: Gen.: Awake, alert, in no distress Head: Normocephalic, atraumatic ENT: Moist mucous membranes Respiratory: No respiratory distress, lungs clear bilaterally Cardio: Regular rate and rhythm Gastrointestinal: Abdomen is soft, Mildly distended and Diffusely tender to palpation with no guarding or rebound Extremities: Moves extremities equally Psych: Normal mood and affect Neuro: No focal neuro deficit Skin: Warm, dry, intact Constitutional Vital Signs, click to edit/add: Last Vital Signs Temp 98.3 F 06/26/23 18:39 Pulse 80 06/26/23 18:39 Resp 22 06/26/23 18:39 BP 165/95 H 06/26/23 18:39 Pulse Ox 98 06/26/23 18:39 O2 Del Method Room Air 06/26/23 18:39 Course Vital Signs Vital signs: Vital Signs Temperature 98.3 F 06/26/23 18:39 Pulse Rate 80 06/26/23 18:39 Respiratory Rate 22 06/26/23 18:39 Blood Pressure 165/95 H 06/26/23 18:39 Pulse Oximetry 98 06/26/23 18:39 Oxygen Delivery Method Room Air 06/26/23 18:39 Temperature 98.3 F 06/26/23 18:39 Pulse Rate 80 06/26/23 18:39 Respiratory Rate 22 06/26/23 18:39 Blood Pressure 165/95 H 06/26/23 18:39 Pulse Oximetry 98 06/26/23 18:39 Oxygen Delivery Method Room Air 06/26/23 18:39 MDM - Abdominal Pain MDM Narrative Medical decision making narrative: 2210: Patient was ordered to have IV fluids, Levsin, Toradol. She had no complaint of nausea or vomiting. Labs show improved white blood cell count from outpatient labs 2 days ago. The remainder of her labs including bilirubin, LFTs and lipase are normal. CT of the abdomen and pelvis with IV contrast was obtained. No acute abnormalities noted by the radiologist. Patient did not produce a stool specimen in the ER, she will be given an order for GI panel as an outpatient. Magnesium citrate, Zofran, Levsin given for home. Follow-up with PCP and return to the ER if symptoms change or worsen. Medical Records Attestation: I reviewed the patient's medical records. Lab Data Attestation: I reviewed the patient's lab results. Labs: Lab Results 06/26/23 Range/Units 20:00 WBC 11.4 H (4.0-11.0) 10^3/uL RBC 4.13 L (4.20-5.40) 10^6/uL Hgb 12.6 (12.0-16.0) g/dL Hct 39.8 (36.0-48.0) % MCV 96.4 (81.0-99.0) fL MCH 30.5 (26.7-34.0) pg MCHC 31.7 (29.9-35.2) g/dL RDW 14.1 (11.0-15.0) % Plt Count 255 (150-450) 10^3/uL MPV 10.6 (9.5-13.5) fL Neut % (Auto) 66.3 (43.0-75.0) % Lymph % (Auto) 24.4 (20.5-60.0) % [place] % (Auto) 7.5 (1.7-12.0) % Eos % (Auto) 0.4 L (0.9-7.0) % Baso % (Auto) 0.4 (0.2-2.0) % Neut # (Auto) 7.6 H (1.4-6.5) 10^3/uL Lymph # (Auto) 2.8 (1.2-3.8) 10^3/uL [place] # (Auto) 0.9 H (0.3-0.8) 10^3/uL Eos # (Auto) 0.0 (0.0-0.7) 10^3/uL Baso # (Auto) 0.1 (0.0-0.1) 10^3/uL Abs Immat Gran (auto) 0.11 H (0.00-0.03) 10^3/uL Imm/Tot Granulo (auto) 1.0 H (0.0-0.5) % Sodium 141 (136-145) mmol/L Potassium 3.7 (3.5-5.1) mmol/L Chloride 106 (98-107) mmol/L Carbon Dioxide 24.8 (21.0-32.0) mmol/L Anion Gap 13.9 BUN 12.0 (7.0-18.0) mg/dL Creatinine 0.69 (0.55-1.02) mg/dL Est GFR ( Amer) >60 (>=60) Est GFR (Non-Af Amer) >60 (>=60) BUN/Creatinine Ratio 17.4 Glucose 91 (74-106) mg/dL Lactate 1.6 (0.4-2.0) mmol/L Calcium 8.9 (8.5-10.1) mg/dL Total Bilirubin 0.2 (0.2-1.0) mg/dL AST 8 L (15-37) U/L ALT 31 (14-59) U/L Alkaline Phosphatase 64 (46-116) U/L Total Protein 7.1 (6.4-8.2) g/dL Albumin 3.3 L (3.4-5.0) g/dL Globulin 3.8 g/dL Albumin/Globulin Ratio 0.9 Lipase 27.0 (16.0-77.0) U/L Serum HCG, Qual Negative (NEGATIVE) Imaging Data CT scan - abdomen: Attestation: I have reviewed the pertinent imaging results. Radiologist's impression: ITS Impressions Abdomen/Pelvis CT 06/26/23 18:52 IMPRESSION: No acute abdominopelvic process is identified. Electronically authenticated by: OLIVIA ARTEAGA Date: 06/26/2023 22:13 Discharge Plan Discharge Chief Complaint: Abdominal Pain Clinical Impression: Abdominal pain Patient Disposition: Home, Self-Care Time of Disposition Decision: 22:22 Condition: Good Prescriptions / Home Meds: New hyoscyamine sulfate [Levsin] 0.125 mg tablet 0.125 mg PO Q6H PRN (Reason: abdominal pain) Qty: 12 0RF ondansetron 4 mg tablet,disintegrating 4 mg PO Q6H PRN (Reason: nausea and vomiting) Qty: 12 0RF magnesium citrate [Citrate of Magnesia] Solution 296 ml PO DAILY Qty: 296 0RF Rx Instructions: Take half of the bottle with 8 oz of water, take the other half after 1 hour with 8 oz of water No Action 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 50 mg tablet 150 mg PO DAILY clindamycin phosphate 1 % gel 1 applic TOPICAL DAILY clobetasol 0.05 % shampoo 1 applic TOPICAL .4 times weekly ergocalciferol (vitamin D2) 1,250 mcg (50,000 unit) capsule 1,250 mcg PO .3 times weekly fluocinonide 0.05 % solution 1 applic TOPICAL BID folic acid 1 mg tablet 1 mg PO DAILY hydroxychloroquine 200 mg tablet 200 mg PO BID metoprolol tartrate 25 mg tablet 100 mg PO Q12H prednisone 10 mg tablet 10 mg PO DAILY pregabalin 75 mg capsule 75 mg PO Q8H tacrolimus 0.1 % ointment 1 applic TOPICAL Q12H PRN (Reason: forehead) Instructions: Abdominal Pain (ED) Stand Alone Forms: Portal Instructions Referrals: SAMSON ENCISO [Primary Care Provider] - 1 week
[2023-06-26 20:19] LABS: Basophils Absolute Auto 0.1 10^3/uL (0.0-0.1); Basophils Percent Auto 0.4 % (0.2-2.0); Eosinophils Percent Auto 0.4 % (0.9-7.0); Hematocrit 39.8 % (36.0-48.0); Hemoglobin 12.6 g/dL (12.0-16.0); Immature Granulocytes Abs Auto 0.11 10^3/uL (0.00-0.03); Lymphocytes Absolute Auto 2.8 10^3/uL (1.2-3.8); Lymphocytes Percent Auto 24.4 % (20.5-60.0); Mean Corpuscular HGB Conc 31.7 g/dL (29.9-35.2); Mean Corpuscular Hemoglobin 30.5 pg (26.7-34.0); Mean Corpuscular Volume 96.4 fL (81.0-99.0); Mean Platelet Volume 10.6 fL (9.5-13.5); Monocytes Absolute Auto 0.9 10^3/uL (0.3-0.8); Monocytes Percent Auto 7.5 % (1.7-12.0); Neutrophils Absolute Auto 7.6 10^3/uL (1.4-6.5); Neutrophils Percent Auto 66.3 % (43.0-75.0); Platelet Count 255 10^3/uL (150-450); Red Blood Count 4.13 10^6/uL (4.20-5.40); Red Cell Distribution Width 14.1 % (11.0-15.0); White Blood Count 11.4 10^3/uL (4.0-11.0)
[2023-06-26 20:37] LABS: Alanine Aminotransferase 31 U/L (14-59); Albumin Globulin Ratio 0.9; Albumin Level 3.3 g/dL (3.4-5.0); Alkaline Phosphatase 64 U/L (46-116); Anion Gap 13.9; Aspartate Amino Transferase 8 U/L (15-37); BUN Creatinine Ratio 17.4; Bilirubin Total 0.2 mg/dL (0.2-1.0); Calcium 8.9 mg/dL (8.5-10.1); Carbon Dioxide 24.8 mmol/L (21.0-32.0); Chloride 106 mmol/L (98-107); Estimated GFR (African America >60 (>=60); Estimated GFR (Non-African Ame >60 (>=60); Globulin 3.8 g/dL; Glucose 91 mg/dL (74-106); HCG Qualitative NEGATIVE (NEGATIVE); Potassium 3.7 mmol/L (3.5-5.1); Sodium 141 mmol/L (136-145); Total Protein 7.1 g/dL (6.4-8.2)
[2023-06-26 20:40] LABS: Lactate/Lactic Acid 1.6 mmol/L (0.4-2.0)
[2023-06-26] MEDS: HYOSCYAMINE SULFATE 0.125 MG TAB.SUBL SL (20:57)
[2023-06-26] MEDS: KETOROLAC TROMETHAMINE 30 MG/ML VIAL IVP (21:04)
[2023-06-26 22:30] VITALS: BP 135/60; PULSE 78; RESP 20; O2SAT 100
[2023-06-26 22:39] LABS: Bilirubin Urine NEGATIVE (NEGATIVE); Blood Urine NEGATIVE (NEGATIVE); Clarity Urine CLEAR (CLEAR); Color Urine YELLOW (YELLOW); Glucose Urine UA NEGATIVE (NEGATIVE); Ketones Urine NEGATIVE (NEGATIVE); Leukocyte Esterase Urine NEGATIVE (NEGATIVE); Nitrite Urine NEGATIVE (NEGATIVE); Protein Urine NEGATIVE (NEG/TRACE); Urine Microscopic Indicated NO; Urobilinogen Urine 0.2 EU/dL (0.2-1.0)
== END 2023-06-26 22:30 | disposition home or self-care (01) ==
PROVIDERS: Physician Assistant; Emergency Provider Emergency Medicine; PCP Nurse Practitioner Family
DX: R10.9 Unspecified abdominal pain (principal); R19.7 Diarrhea, unspecified; F17.200 Nicotine dependence, unspecified, uncomplicated
CPT/HCPCS: 36415; 74177; 80053; 81003; 83605; 83690; 84703; 85025; 93005; 96374; 99285; J1885; Q9967

== ENCOUNTER 2023-06-27 17:23 | Outpatient (REF) | payer OTHER, SELFPAY ==
--- OUTSIDE RECORDS SUMMARY | 2023-06-28 17:41 | XMS_ITS | CCD ---
Author Name Unknown Address [address] [facility] [address] [place] [address] Organization [facility] Care Team Providers [employer] Assistant Name Role Phone VICTOR MANUEL GUZMAN Referring Unavailable Bettina Jiménez Admitting Unavailable Bettina Jiménez Attending Unavailable Lui Salomon Primary Care Unavailable Unavailable Primary Care Provider UnavailJAREN Stuart Referring Unavailable Britt PRACTICE ADVISOR.TRUE, Gay Primary Care Provider Mirela Kelsey Unavailable Britt PRACTICE ADVISOR.TRUE, Gay Primary Care Provider [phone] Madelaine Ferris MD Unavailable Madelaine Ferris MD Primary Care Provider [phone] Madelaine Ferris MD Unavailable Madelaine Ferris MD Primary Care Provider [phone] Madelaine Ferris MD Unavailable Madelaine Ferris MD Primary Care Provider [phone] MADELAINE LEYVA Primary Care Unavailable [...] Attending Unavailable PARMJIT ., MICKY Admitting Unavailable ALMO, DR AURORA Pacheco Consulting Unavailable HOY ., [...] ROGERS Attending Unavailab SHARRON Braden Attending Unavailab SHARRON Braden Referring Unavailab SHARRON Braden Referring Unavailab Charles Ashraf DO Primary Care Provider Michelle Washington Unavailable MICHELLE BRITTON Attending Unavailable CHARLES MITCHELL Primary Care Unavailab MICHELLE Paulson Referring Unavailable [...] Sulfamethoxazole / Trimethoprim Drug Allergy 10-08-19 21 [facility] (20 sources) Codeine; Translations: [CODEINE] Drug Allergy 05-31-19 15 Other: See Comments [facility] (20 sources) Latex; Translations: [LATEX] Drug Allergy 05-31-19 15 Rash [facility] (20 sources) Sulfamethoxazole; Translations: [SULFAMETHOXAZOLE] Drug Allergy 05-31-19 15 GI Upset [facility] (20 sources) Clindamycin; Translations: [CLINDAMYCIN] Drug Allergy 03-04-20 22 Unknown [facility] (4 sources) Sulfamethoxazole / Trimethoprim Drug Allergy lymph swelling [facility] Other (20 sources) Doxycycline; Translations: [DOXYCYCLINE] Drug Allergy 01-20-20 22 Other: See Comments, Other, Unknown [facility] (20 sources) Sulfamethoxazole / Trimethoprim; Translations: [SULFAMETHOXAZOLE-T RIMETHOPRIM] Drug Allergy 02-24-20 16 Swelling, Other [facility] (20 sources) Trimethoprim; Translations: [TRIMETHOPRIM] Drug Allergy 01-20-20 22 Other: See Comments [facility] (1 source) Latex Drug allergy (disorder) 10-04-19 16 [facility] (1 source) Sulfamethoxazole / Trimethoprim Drug Allergy 02-24-20 16 [facility] Medications Current Medications Medication Drug Class(es) [...] other organ involvement (HCC) , 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 custodial 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 TAKE 3 TABLETS BY MOUTH DAILY WITH FOOD. HOLD IF ON ANTIBIOTICS OR ILL. 90 tablet 3 02/16/2023 Active Start: 08-19-2022 End: 11-24-2022 take 2 tablets by mouth once daily at mealtime azaTHIOprine (IMURAN) 50 mg tablet Indications: Other systemic lupus erythematosus with other organ involvement (HCC) , 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 custodial 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 Take 2tab daily [...] every week ergocalciferol (Vitamin D-2) 1.25 MG (82649 UT) capsule Take 1 capsule (50,000 Units) [...] Active Start: 05-25-2022 take 1 tablet by [facility] twice daily metoprolol tartrate, short acting, (LOPRESSOR) [...] Discontinued Start: 01-19-2022 take 1 capsule by [facility] once daily naltrexone capsule 1 mg TAKE [...] Comment on above: TAKE 1 CAPSULE BY [facility] 3 TIMES A DAY FOR 30 DAYS TAKE 1 CAPSULE BY [facility] 3 TIMES A DAY take 1 capsule by [facility] three times a day 1000 ml sodium [...] Comment on above: Take 1 tablet by [facility] two times a day. triamcinolone acetonide 0.25 [...] on above: Take 1 capsule by mo [facility] twice daily. VIT/IRON FUMARATE/FA ( VITAMIN ORAL) [...] Comment on above: Take 1 tablet by [facility] once daily. simvastatin 20 mg oral [...] sources) Drug therapy status; Translations: [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] Episodic Other aftercare (1 source) Polypharmacy ; Translations: [Other 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) drug therapy] Episodic Other circulatory disease [...] (20 sources) Drug therapy finding; Translations: [Other 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) drug therapy] Onset: 03-05-2021 Episodic Other aftercare (20 sources) H/O: high risk medication; Translations: [Other 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) drug therapy] Onset: 06-15-2022 06-15-2022 Episodic Other aftercare (1 source) Other custodial (current) drug therapy; Translations: [OTH RETIREMENT 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 THERAPY] Onset: 03-23-2022 Episodic Other aftercare (17 sources) Long-term 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 systemic steroid; Translations: [skilled nursing (current) use of 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] Onset: 02-04-2023 [...] Reference Range Facility CNPDede 06-12-2023 CNPN Normal [facility] 25(OH)D3 Ruthannl-Salazar 2023 25-hydroxyvitamin D3 [Mass/Vol] 17.3 ng/mL Low 31.0-80.0 [facility] Comment on above: Order Comment: Speci men Type: BLOOD SPECIMENOrdering Facility: [facility] Address: [address] [place] [address] Result Comment: Clas sification of 25 [place] Vitamin D status:Deficiency/Insufficiency: < or = 30 ng/ml.Sufficiency/Optimal Levels: 31-80 ng/mLToxicity: > 100 ng/mL.Test performed by chemiluminescent immunoassay. Performed By: #### 1 989-3 ####[facility] LABCLIA [id number] [address] STATES OF [facility] CBC panel Auto (Bld)on 06-10 Erythrocyte distribution width (RBC) [Ratio] 14.5 % Normal 11.5-15.0 [facility] Comment on above: Order Comment: Speci men Type: BLOOD SPECIMENOrdering Facility: [facility] Address: [address] [place] [address] Performed By: #### 5 8410-2 ####[facility] LABCLIA [id number] [place] [address] Hematocrit (Bld) [Volume fraction] 43.1 % Normal 36.0-46.0 [facility] Comment on above: Order Comment: Speci men Type: BLOOD SPECIMENOrdering Facility: [facility] Address: [address] [place] [address] Performed By: #### 5 8410-2 ####[facility] LABCLIA [id number] [place] [address] Hemoglobin (Bld) [Mass/Vol] 13.9 g/dL Normal 11.5-15.5 [facility] Comment on above: Order Comment: Speci men Type: BLOOD SPECIMENOrdering Facility: [facility] Address: [address] [place] [address] Performed By: #### 5 8410-2 ####[facility] LABCLIA [id number] [place] [address] MCH (RBC) [Entitic mass] 30.6 pg Normal 26.0-34.0 [facility] Comment on above: Order Comment: Speci men Type: BLOOD SPECIMENOrdering Facility: [facility] Address: [address] [place] [address] Performed By: #### 5 8410-2 ####[facility] LABCLIA [id number] [place] [address] MCHC (RBC) [Mass/Vol] 32.3 g/dL Normal 30.5-36.0 [facility] Comment on above: Order Comment: Speci men Type: BLOOD SPECIMENOrdering Facility: [facility] Address: [address] [place] [address] Performed By: #### 5 8410-2 ####[facility] LABIA [id number] [place] [address] MCV (RBC) [Entitic vol] 94.9 fL Normal 80.0-100.0 [facility] Comment on above: Order Comment: Speci men Type: BLOOD SPECIMENOrdering Facility: [facility] Address: [address] [place] [address] Performed By: #### 5 8410-2 ####[facility] LABCLIA [id number] [place] [address] Nucleated RBC (Bld) [#/Vol] 10*3/uL Normal <0.01 [facility] Comment on above: Order Comment: Speci men Type: BLOOD SPECIMENOrdering Facility: [facility] Address: [address] [place] [address] Performed By: #### 5 8410-2 ####[facility] LABCLIA [id number] [place] [address] Platelet mean volume (Bld) [Entitic vol] 9.5 fL Normal 9.0-12.7 [facility] Comment on above: Order Comment: Speci men Type: BLOOD SPECIMENOrdering Facility: [facility] Address: [address] [place] [address] Performed By: #### 5 8410-2 ####[facility] LABCLIA [id number] [place] [address] Platelets (Bld) [#/Vol] 320 10*3/uL Normal 150-400 [facility] Comment on above: Order Comment: Speci men Type: BLOOD SPECIMENOrdering Facility: [facility] Address: [address] [place] [address] Performed By: #### 5 8410-2 ####[facility] LABIA [id number] [place] [address] RBC (Bld) [#/Vol] 4.54 10*6/uL Normal 3.90-5.20 [facility] Comment on above: Order Comment: Speci men Type: BLOOD SPECIMENOrdering Facility: [facility] Address: [address] [place] [address] Performed By: #### 5 8410-2 ####[facility] LABIA [id number] [place] [address] WBC (Bld) [#/Vol] 15.15 10*3/uL High 3.70-11.00 [facility] Comment on above: Order Comment: Speci men Type: BLOOD SPECIMENOrdering Facility: [facility] Address: [address] [place] [address] Performed By: #### 5 8410-2 ####[facility] LABIA [id number] [place] [address] CNNURSEon 06-10-2023 CNNURSE Normal [facility] CNOVSPon 06-10-2023 CNOVSP Normal [facility] CRP SerPl-mCncon 06-10-2023 CRP [Mass/Vol] mg/L Normal <0.9 [facility] Comment on above: Order Comment: Speci men Type: BLOOD SPECIMENOrdering Facility: [facility] Address: [address] [place] [address] Performed By: #### 1 988-5 ####[facility] LABCLIA [id number] [facility] [id number] [address] [facility] Comprehensive metabolic 2000 panelon 06-10-2023 Albumin [Mass/Vol] 4.1 g/dL Normal 3.9-4.9 [facility] Comment on above: Order Comment: Speci men Type: BLOOD SPECIMENOrdering Facility: [facility] Address: [address] [place] [address] Performed By: #### 2 4323-8 ####[facility] LABCLIA [id number] [place] [address] ALP [Catalytic activity/Vol] 72 U/L Normal 34-123 [facility] Comment on above: Order Comment: Speci men Type: BLOOD SPECIMENOrdering Facility: [facility] Address: [address] [place] [address] Performed By: #### 2 4323-8 ####[facility] LABCLIA [id number] [place] [address] ALT [Catalytic activity/Vol] 22 U/L Normal 7-38 [facility] Comment on above: Order Comment: Speci men Type: BLOOD SPECIMENOrdering Facility: [facility] Address: [address] [place] [address] Performed By: #### 2 4323-8 ####[facility] LABCLIA [id number] [place] [address] Anion gap [Moles/Vol] 10 mmol/L Normal 9-18 [facility] Comment on above: Order Comment: Speci men Type: BLOOD SPECIMENOrdering Facility: [facility] Address: [address] [place] [address] Performed By: #### 2 4323-8 ####[facility] LABCLIA [id number] [place] [address] AST [Catalytic activity/Vol] 9 U/L Low 13-35 [facility] Comment on above: Order Comment: Speci men Type: BLOOD SPECIMENOrdering Facility: [facility] Address: [address] [place] [address] Performed By: #### 2 4323-8 ####[facility] LABCLIA [id number] [place] [address] Bilirubin [Mass/Vol] 0.2 mg/dL Normal 0.2-1.3 [facility] Comment on above: Order Comment: Speci men Type: BLOOD SPECIMENOrdering Facility: [facility] Address: [address] [place] [address] Performed By: #### 2 4323-8 ####[facility] LABCLIA [id number] [place] [address] Calcium [Mass/Vol] 9.8 mg/dL Normal 8.5-10.2 [facility] Comment on above: Order Comment: Speci men Type: BLOOD SPECIMENOrdering Facility: [facility] Address: [address] [place] [address] Performed By: #### 2 4323-8 ####[facility] LABCLIA [id number] [place] [address] Chloride [Moles/Vol] 107 mmol/L High 97-105 [facility] Comment on above: Order Comment: Speci men Type: BLOOD SPECIMENOrdering Facility: [facility] Address: [address] [place] [address] Performed By: #### 2 4323-8 ####[facility] LABCLIA [id number] [place] [address] CO2 [Moles/Vol] 24 mmol/L Normal 22-30 [facility] Comment on above: Order Comment: Speci men Type: BLOOD SPECIMENOrdering Facility: [facility] Address: [address] [place] [address] Performed By: #### 2 4323-8 ####[facility] LABCLIA [id number] [place] [address] Creatinine [Mass/Vol] 0.80 mg/dL Normal 0.58-0.96 [facility] Comment on above: Order Comment: Speci men Type: BLOOD SPECIMENOrdering Facility: [facility] Address: [address] [place] [address] Performed By: #### 2 4323-8 ####[facility] LABCLIA [id number] [place] [address] Creatinine and Glomerular filtration rate.predicted panel (S/P/Bld) 94 mL/min/1.73m??? Normal >=60 [facility] Comment on above: Order Comment: Speci men Type: BLOOD SPECIMENOrdering Facility: [facility] Address: [address] [place] [address] Result Comment: Erin mated Glomerular Filtration Rate [...] actual GFR. Performed By: #### 2 4323-8 ####[facility] LABCLIA [id number] [place] [address] Glucose [Mass/Vol] 98 mg/dL Normal 74-99 [facility] Comment on above: Order Comment: Speci men Type: BLOOD SPECIMENOrdering Facility: [facility] Address: [address] [place] [address] Result Comment: The [place] Diabetes Association (ADA) provides guidance for cutoff [...] Standards of Medical Care in Diabetes 2016, [place] [employer]. Diabetes Care. 2016.39(Suppl 1). Performed By: #### 2 4323-8 ####[facility] LABCLIA [id number] [place] [address] Potassium [Moles/Vol] 3.6 mmol/L Low 3.7-5.1 [facility] Comment on above: Order Comment: Speci men Type: BLOOD SPECIMENOrdering Facility: [facility] Address: [address] [place] [address] Performed By: #### 2 4323-8 ####[facility] LABCLIA [id number] [place] [address] Protein [Mass/Vol] 7.0 g/dL Normal 6.3-8.0 [facility] Comment on above: Order Comment: Speci men Type: BLOOD SPECIMENOrdering Facility: [facility] Address: [address] [place] [address] Performed By: #### 2 4323-8 ####[facility] LABCLIA [id number] [place] [address] Sodium [Moles/Vol] 141 mmol/L Normal 136-144 [facility] Comment on above: Order Comment: Speci men Type: BLOOD SPECIMENOrdering Facility: [facility] Address: [address] [place] [address] Performed By: #### 2 4323-8 ####[facility] LABCLIA [id number] [place] [address] Urea nitrogen [Mass/Vol] 17 mg/dL Normal 7-21 [facility] Comment on above: Order Comment: Speci men Type: BLOOD SPECIMENOrdering Facility: [facility] Address: [address] [place] [address] Performed By: #### 2 4323-8 ####[facility] LABCLIA [id number] [place] [address] ESR Westergren method (Bld) [Velocity]on 06-10-2023 ESR (Bld) [Velocity] 28 mm/h High 0-20 [facility] Comment on above: Order Comment: Speci men Type: BLOOD SPECIMENOrdering Facility: [facility] Address: [address] [place] [address] Performed By: #### 4 537-7 ####[facility] LABCLIA [id number] [facility] [id number] [place] [address] [place] CBC W Auto Differential pane l (Bld)on 06-03-2023 Basophils (Bld) [#/Vol] 0.05 10*3/uL Normal <0.11 [facility] Comment on above: Order Comment: Speci men Type: BLOOD SPECIMENOrdering Facility: [facility] Address: [address] [place] [address] Performed By: #### 5 7021-8 ####[facility] LABIA [id number] [place] [address] Basophils/100 WBC (Bld) 0.4 % Normal [facility] Comment on above: Order Comment: Speci men Type: BLOOD SPECIMENOrdering Facility: [facility] Address: [address] [place] [address] Performed By: #### 5 7021-8 ####[facility] LABCLIA [id number] [place] [address] Differential cell count method Nom (Bld) Auto Normal [facility] Comment on above: Order Comment: Speci men Type: BLOOD SPECIMENOrdering Facility: [facility] Address: [address] [place] [address] Performed By: #### 5 7021-8 ####[facility] LABCLIA [id number] [place] [address] Eosinophils (Bld) [#/Vol] 0.14 10*3/uL Normal <0.46 [facility] Comment on above: Order Comment: Speci men Type: BLOOD SPECIMENOrdering Facility: [facility] Address: [address] [place] [address] Performed By: #### 5 7021-8 ####[facility] LABCLIA [id number] [place] [address] Eosinophils/100 WBC (Bld) 1.1 % Normal [facility] Comment on above: Order Comment: Speci men Type: BLOOD SPECIMENOrdering Facility: [facility] Address: [address] [place] [address] Performed By: #### 5 7021-8 ####[facility] LABCLIA [id number] [place] [address] Erythrocyte distribution width (RBC) [Ratio] 14.5 % Normal 11.5-15.0 [facility] Comment on above: Order Comment: Speci men Type: BLOOD SPECIMENOrdering Facility: [facility] Address: [address] [place] [address] Performed By: #### 5 7021-8 ####[facility] LABCLIA [id number] [place] [address] Hematocrit (Bld) [Volume fraction] 40.5 % Normal 36.0-46.0 [facility] Comment on above: Order Comment: Speci men Type: BLOOD SPECIMENOrdering Facility: [facility] Address: [address] [place] [address] Performed By: #### 5 7021-8 ####[facility] LABCLIA [id number] [place] [address] Hemoglobin (Bld) [Mass/Vol] 13.1 g/dL Normal 11.5-15.5 [facility] Comment on above: Order Comment: Speci men Type: BLOOD SPECIMENOrdering Facility: [facility] Address: [address] [place] [address] Performed By: #### 5 7021-8 ####[facility] LABCLIA [id number] [place] [address] Immature granulocytes (Bld) [#/Vol] 0.20 10*3/uL High <0.10 [facility] Comment on above: Order Comment: Speci men Type: BLOOD SPECIMENOrdering Facility: [facility] Address: [address] [place] [address] Performed By: #### 5 7021-8 ####[facility] LABCLIA [id number] [place] [address] Immature granulocytes/100 WBC (Bld) 1.6 % Normal [facility] Comment on above: Order Comment: Speci men Type: BLOOD SPECIMENOrdering Facility: [facility] Address: [address] [place] [address] Performed By: #### 5 7021-8 ####[facility] LABCLIA [id number] [place] [address] Lymphocytes (Bld) [#/Vol] 4.13 10*3/uL High 1.00-4.00 [facility] Comment on above: Order Comment: Speci men Type: BLOOD SPECIMENOrdering Facility: [facility] Address: [address] [place] [address] Performed By: #### 5 7021-8 ####[facility] LABCLIA [id number] [place] [address] Lymphocytes/100 WBC (Bld) 32.1 % Normal [facility] Comment on above: Order Comment: Speci men Type: BLOOD SPECIMENOrdering Facility: [facility] Address: [address] [place] [address] Performed By: #### 5 7021-8 ####[facility] LABCLIA [id number] [place] [address] MCH (RBC) [Entitic mass] 30.8 pg Normal 26.0-34.0 [facility] Comment on above: Order Comment: Speci men Type: BLOOD SPECIMENOrdering Facility: [facility] Address: [address] [place] [address] Performed By: #### 5 7021-8 ####[facility] LABCLIA [id number] [place] [address] MCHC (RBC) [Mass/Vol] 32.3 g/dL Normal 30.5-36.0 [facility] Comment on above: Order Comment: Speci men Type: BLOOD SPECIMENOrdering Facility: [facility] Address: [address] [place] [address] Performed By: #### 5 7021-8 ####[facility] LABCLIA [id number] [place] [address] MCV (RBC) [Entitic vol] 95.1 fL Normal 80.0-100.0 [facility] Comment on above: Order Comment: Speci men Type: BLOOD SPECIMENOrdering Facility: [facility] Address: [address] [place] [address] Performed By: #### 5 7021-8 ####[facility] LABCLIA [id number] [place] [address] Monocytes (Bld) [#/Vol] 0.79 10*3/uL Normal <0.87 [facility] Comment on above: Order Comment: Speci men Type: BLOOD SPECIMENOrdering Facility: [facility] Address: [address] [place] [address] Performed By: #### 5 7021-8 ####[facility] LABCLIA [id number] [place] [address] Monocytes/100 WBC (Bld) 6.1 % Normal [facility] Comment on above: Order Comment: Speci men Type: BLOOD SPECIMENOrdering Facility: [facility] Address: [address] [place] [address] Performed By: #### 5 7021-8 ####[facility] LABCLIA [id number] [place] [address] Neutrophils (Bld) [#/Vol] 7.56 10*3/uL High 1.45-7.50 [facility] Comment on above: Order Comment: Speci men Type: BLOOD SPECIMENOrdering Facility: [facility] Address: [address] [place] [address] Performed By: #### 5 7021-8 ####[facility] LABCLIA [id number] [place] [address] Neutrophils/100 WBC (Bld) 58.7 % Normal [facility] Comment on above: Order Comment: Speci men Type: BLOOD SPECIMENOrdering Facility: [facility] Address: [address] [place] [address] Performed By: #### 5 7021-8 ####[facility] LABCLIA [id number] [place] [address] Nucleated RBC (Bld) [#/Vol] 10*3/uL Normal <0.01 [facility] Comment on above: Order Comment: Speci men Type: BLOOD SPECIMENOrdering Facility: [facility] Address: [address] [place] [address] Performed By: #### 5 7021-8 ####[facility] LABCLIA [id number] [place] [address] Nucleated RBC/100 WBC (Bld) [Ratio] 0.0 /100 WBC Normal [facility] Comment on above: Order Comment: Speci men Type: BLOOD SPECIMENOrdering Facility: [facility] Address: [address] [place] [address] Performed By: #### 5 7021-8 ####[facility] LABCLIA [id number] [place] [address] Platelet mean volume (Bld) [Entitic vol] 9.7 fL Normal 9.0-12.7 [facility] Comment on above: Order Comment: Speci men Type: BLOOD SPECIMENOrdering Facility: [facility] Address: [address] [place] [address] Performed By: #### 5 7021-8 ####[facility] LABCLIA [id number] [place] [address] Platelets (Bld) [#/Vol] 261 10*3/uL Normal 150-400 [facility] Comment on above: Order Comment: Speci men Type: BLOOD SPECIMENOrdering Facility: [facility] Address: [address] [place] [address] Performed By: #### 5 7021-8 ####[facility] LABCLIA [id number] [place] [address] RBC (Bld) [#/Vol] 4.26 10*6/uL Normal 3.90-5.20 [facility] Comment on above: Order Comment: Speci men Type: BLOOD SPECIMENOrdering Facility: [facility] Address: [address] [place] [address] Performed By: #### 5 7021-8 ####[facility] LABCLIA [id number] [place] [address] WBC (Bld) [#/Vol] 12.87 10*3/uL High 3.70-11.00 [facility] Comment on above: Order Comment: Speci men Type: BLOOD SPECIMENOrdering Facility: [facility] Address: [address] [place] [address] Performed By: #### 5 7021-8 ####[facility] LABCLIA [id number] [place] [address] Comprehensive metabolic 2000 panelon 06-03-2023 Albumin [Mass/Vol] 4.0 g/dL Normal 3.9-4.9 [facility] Comment on above: Order Comment: Speci men Type: BLOOD SPECIMENOrdering Facility: [facility] Address: [address] [place] [address] Performed By: #### 2 4323-8 ####[facility] LABCLIA [id number] [place] [address] ALP [Catalytic activity/Vol] 73 U/L Normal 34-123 [facility] Comment on above: Order Comment: Speci men Type: BLOOD SPECIMENOrdering Facility: [facility] Address: [address] [place] [address] Performed By: #### 2 4323-8 ####[facility] LABCLIA [id number] [place] [address] ALT [Catalytic activity/Vol] 21 U/L Normal 7-38 [facility] Comment on above: Order Comment: Speci men Type: BLOOD SPECIMENOrdering Facility: [facility] Address: [address] [place] [address] Performed By: #### 2 4323-8 ####[facility] LABCLIA [id number] [place] [address] Anion gap [Moles/Vol] 10 mmol/L Normal 9-18 [facility] Comment on above: Order Comment: Speci men Type: BLOOD SPECIMENOrdering Facility: [facility] Address: [address] [place] [address] Performed By: #### 2 4323-8 ####[facility] LABCLIA [id number] [place] [address] AST [Catalytic activity/Vol] 10 U/L Low 13-35 [facility] Comment on above: Order Comment: Speci men Type: BLOOD SPECIMENOrdering Facility: [facility] Address: [address] [place] [address] Performed By: #### 2 4323-8 ####[facility] LABCLIA [id number] [place] [address] Bilirubin [Mass/Vol] 0.2 mg/dL Normal 0.2-1.3 [facility] Comment on above: Order Comment: Speci men Type: BLOOD SPECIMENOrdering Facility: [facility] Address: [address] [place] [address] Performed By: #### 2 4323-8 ####[facility] LABCLIA [id number] [place] [address] Calcium [Mass/Vol] 9.6 mg/dL Normal 8.5-10.2 [facility] Comment on above: Order Comment: Speci men Type: BLOOD SPECIMENOrdering Facility: [facility] Address: [address] [place] [address] Performed By: #### 2 4323-8 ####[facility] LABCLIA [id number] [place] [address] Chloride [Moles/Vol] 108 mmol/L High 97-105 [facility] Comment on above: Order Comment: Speci men Type: BLOOD SPECIMENOrdering Facility: [facility] Address: [address] [place] [address] Performed By: #### 2 4323-8 ####[facility] LABCLIA [id number] [place] [address] CO2 [Moles/Vol] 24 mmol/L Normal 22-30 [facility] Comment on above: Order Comment: Speci men Type: BLOOD SPECIMENOrdering Facility: [facility] Address: [address] [place] [address] Performed By: #### 2 4323-8 ####[facility] LABCLIA [id number] [place] [address] Creatinine [Mass/Vol] 0.70 mg/dL Normal 0.58-0.96 [facility] Comment on above: Order Comment: Speci men Type: BLOOD SPECIMENOrdering Facility: [facility] Address: [address] [place] [address] Performed By: #### 2 4323-8 ####[facility] LABIA [id number] [place] [address] Creatinine and Glomerular filtration rate.predicted panel (S/P/Bld) 111 mL/min/1.73m??? Normal >=60 [facility] Comment on above: Order Comment: Speci men Type: BLOOD SPECIMENOrdering Facility: [facility] Address: [address] [place] [address] Result Comment: Erin mated Glomerular Filtration Rate [...] actual GFR. Performed By: #### 2 4323-8 ####[facility] LABCLIA [id number] [place] [address] Glucose [Mass/Vol] 106 mg/dL High 74-99 [facility] Comment on above: Order Comment: Speci men Type: BLOOD SPECIMENOrdering Facility: [facility] Address: [address] [place] [address] Result Comment: The [place] Diabetes Association (ADA) provides guidance for cutoff [...] Standards of Medical Care in Diabetes 2016, [place] [employer]. Diabetes Care. 2016.39(Suppl 1). Performed By: #### 2 4323-8 ####[facility] LABCLIA [id number] [place] [address] Potassium [Moles/Vol] 4.0 mmol/L Normal 3.7-5.1 [facility] Comment on above: Order Comment: Speci men Type: BLOOD SPECIMENOrdering Facility: [facility] Address: [address] [place] [address] Performed By: #### 2 4323-8 ####[facility] LABCLIA [id number] [place] [address] Protein [Mass/Vol] 6.8 g/dL Normal 6.3-8.0 [facility] Comment on above: Order Comment: Speci men Type: BLOOD SPECIMENOrdering Facility: [facility] Address: [address] [place] [address] Performed By: #### 2 4323-8 ####[facility] LABCLIA [id number] [place] [address] Sodium [Moles/Vol] 142 mmol/L Normal 136-144 [facility] Comment on above: Order Comment: Speci men Type: BLOOD SPECIMENOrdering Facility: [facility] Address: [address] [place] [address] Performed By: #### 2 4323-8 ####[facility] LABCLIA [id number] [place] [address] Urea nitrogen [Mass/Vol] 12 mg/dL Normal 7-21 [facility] Comment on above: Order Comment: Speci men Type: BLOOD SPECIMENOrdering Facility: [facility] Address: [address] [place] [address] Performed By: #### 2 4323-8 ####[facility] LABCLIA [id number] [place] [address] ESR Westergren method (Bld) [Velocity]on 06-03-2023 ESR (Bld) [Velocity] 35 mm/h High 0-20 [facility] Comment on above: Order Comment: Speci men Type: BLOOD SPECIMENOrdering Facility: [facility] Address: [address] [place] [address] Performed By: #### 4 537-7 ####[facility] LABCLIA [id number] [place] [address] [place] Ferritin SerPl-mCncon 2023 Ferritin [Mass/Vol] 23.4 ng/mL Normal 14.7-205.1 [facility] Comment on above: Order Comment: Speci men Type: BLOOD SPECIMENOrdering Facility: [facility] Address: [address] [place] [id number] Performed By: #### 5 0190-8, 2132-01, 2275-08, 2283-12 ####[facility] LABCLIA [id number] [address] [address] [place] Folate SerPl-ncon 06-03-19 Folate [Mass/Vol] 8.2 ng/mL Normal >4.7 [facility] Comment on above: Order Comment: Speci men Type: BLOOD SPECIMENOrdering Facility: [facility] Address: [address] [place] [address] Performed By: #### 5 0190-8, 2132-01, 2275-08, 2283-12 ####[facility] LABCLIA [id number] [place] [address] [place] Iron and Iron binding capaci panel 06-03-2023 Iron [Mass/Vol] 67 ug/dL Normal 41-186 [facility] Comment on above: Order Comment: Speci men Type: BLOOD SPECIMENOrdering Facility: [facility] Address: [place] [address] Performed By: #### 5 0190-8, 2132-01, 2275-08, 2283-12 ####[facility] LABCLIA [id number] [place] [id number] [place] Iron binding capacity [Mass/Vol] 395 ug/dL High 232-386 [facility] Comment on above: Order Comment: Speci men Type: BLOOD SPECIMENOrdering Facility: [facility] Address: [address] [place] [address] Performed By: #### 5 0190-8, 2132-01, 2275-08, 2283-12 ####[facility] LABCLIA [id number] [place] [address] [place] Iron/TIBC [Molar ratio] 17.0 % Normal 15.0-57.0 [facility] Comment on above: Order Comment: Speci men Type: BLOOD SPECIMENOrdering Facility: [facility] Address: [place] [address] Performed By: #### 5 0190-8, 2131-9, 6-4, 8 ####[facility] LABCLIA [id number] [address] [place] Vit B12 SerPl-[facility] Foundationon 024 Cobalamin (Vitamin B12) [Mass/Vol] 428 pg/mL Normal 232-1245 [facility] Comment on above: Order Comment: Speci men Type: BLOOD SPECIMENOrdering Facility: [facility] Address: [address] [address] Performed By: #### 5 0190-8, 9, 6-4, 8 ####[facility] LABCLIA [id number] [address] [place] CNNURSEon 05-10-2023 CNNURSE Normal [facility] XR CERVICAL SPINE COMPLETE 4 -5 VIEWSon [...] Normal Not Available CNPNon 04-22-2023 CNPN Normal [facility] CNNURSEon 04-16-2023 CNNURSE Normal [facility] CNOVSPon 04-16-2023 CNOVSP Normal [facility] CBC W Auto Differential pane l (Bld)on 04-09-2023 Basophils (Bld) [#/Vol] 0.05 10*3/uL Normal <0.11 [facility] Comment on above: Order Comment: Speci men Type: BLOOD SPECIMENOrdering Facility: [facility] Address: [address] [place] [address] Performed By: #### 5 7021-8 ####[facility] LABCLIA [id number] [place] [address] Basophils/100 WBC (Bld) 0.5 % Normal [facility] Comment on above: Order Comment: Speci men Type: BLOOD SPECIMENOrdering Facility: [facility] Address: [address] [place] [address] Performed By: #### 5 7021-8 ####[facility] LABCLIA [id number] [place] [address] Differential cell count method Nom (Bld) Auto Normal [facility] Comment on above: Order Comment: Speci men Type: BLOOD SPECIMENOrdering Facility: [facility] Address: [address] [place] [address] Performed By: #### 5 7021-8 ####[facility] LABCLIA [id number] [place] [address] Eosinophils (Bld) [#/Vol] 0.09 10*3/uL Normal <0.46 [facility] Comment on above: Order Comment: Speci men Type: BLOOD SPECIMENOrdering Facility: [facility] Address: [address] [place] [address] Performed By: #### 5 7021-8 ####[facility] LABCLIA [id number] [place] [address] Eosinophils/100 WBC (Bld) 0.9 % Normal [facility] Comment on above: Order Comment: Speci men Type: BLOOD SPECIMENOrdering Facility: [facility] Address: [address] [place] [address] Performed By: #### 5 7021-8 ####[facility] LABCLIA [id number] [place] [address] Erythrocyte distribution width (RBC) [Ratio] 14.8 % Normal 11.5-15.0 [facility] Comment on above: Order Comment: Speci men Type: BLOOD SPECIMENOrdering Facility: [facility] Address: [address] [place] [address] Performed By: #### 5 7021-8 ####[facility] LABCLIA [id number] [place] [address] Hematocrit (Bld) [Volume fraction] 41.1 % Normal 36.0-46.0 [facility] Comment on above: Order Comment: Speci men Type: BLOOD SPECIMENOrdering Facility: [facility] Address: [address] [place] [address] Performed By: #### 5 7021-8 ####[facility] LABCLIA [id number] [place] [address] Hemoglobin (Bld) [Mass/Vol] 13.1 g/dL Normal 11.5-15.5 [facility] Comment on above: Order Comment: Speci men Type: BLOOD SPECIMENOrdering Facility: [facility] Address: [address] [place] [address] Performed By: #### 5 7021-8 ####[facility] LABCLIA [id number] [place] [address] Immature granulocytes (Bld) [#/Vol] 0.05 10*3/uL Normal <0.10 [facility] Comment on above: Order Comment: Speci men Type: BLOOD SPECIMENOrdering Facility: [facility] Address: [address] [place] [address] Performed By: #### 5 7021-8 ####[facility] LABCLIA [id number] [place] [address] Immature granulocytes/100 WBC (Bld) 0.5 % Normal [facility] Comment on above: Order Comment: Speci men Type: BLOOD SPECIMENOrdering Facility: [facility] Address: [address] [place] [address] Performed By: #### 5 7021-8 ####[facility] LABCLIA [id number] [place] [address] Lymphocytes (Bld) [#/Vol] 2.90 10*3/uL Normal 1.00-4.00 [facility] Comment on above: Order Comment: Speci men Type: BLOOD SPECIMENOrdering Facility: [facility] Address: [address] [place] [address] Performed By: #### 5 7021-8 ####[facility] LABCLIA [id number] [place] [address] Lymphocytes/100 WBC (Bld) 28.9 % Normal [facility] Comment on above: Order Comment: Speci men Type: BLOOD SPECIMENOrdering Facility: [facility] Address: [address] [place] [address] Performed By: #### 5 7021-8 ####[facility] LABCLIA [id number] [place] [address] MCH (RBC) [Entitic mass] 30.5 pg Normal 26.0-34.0 [facility] Comment on above: Order Comment: Speci men Type: BLOOD SPECIMENOrdering Facility: [facility] Address: [address] [place] [address] Performed By: #### 5 7021-8 ####[facility] LABCLIA [id number] [place] [address] MCHC (RBC) [Mass/Vol] 31.9 g/dL Normal 30.5-36.0 [facility] Comment on above: Order Comment: Speci men Type: BLOOD SPECIMENOrdering Facility: [facility] Address: [address] [place] [address] Performed By: #### 5 7021-8 ####[facility] LABCLIA [id number] [place] [address] MCV (RBC) [Entitic vol] 95.8 fL Normal 80.0-100.0 [facility] Comment on above: Order Comment: Speci men Type: BLOOD SPECIMENOrdering Facility: [facility] Address: [address] [place] [address] Performed By: #### 5 7021-8 ####[facility] LABCLIA [id number] [place] [address] Monocytes (Bld) [#/Vol] 0.54 10*3/uL Normal <0.87 [facility] Comment on above: Order Comment: Speci men Type: BLOOD SPECIMENOrdering Facility: [facility] Address: [address] [place] [address] Performed By: #### 5 7021-8 ####[facility] LABCLIA [id number] [place] [address] Monocytes/100 WBC (Bld) 5.4 % Normal [facility] Comment on above: Order Comment: Speci men Type: BLOOD SPECIMENOrdering Facility: [facility] Address: [address] [place] [address] Performed By: #### 5 7021-8 ####[facility] LABCLIA [id number] [place] [address] Neutrophils (Bld) [#/Vol] 6.41 10*3/uL Normal 1.45-7.50 [facility] Comment on above: Order Comment: Speci men Type: BLOOD SPECIMENOrdering Facility: [facility] Address: [address] [place] [address] Performed By: #### 5 7021-8 ####[facility] LABCLIA [id number] [place] [address] Neutrophils/100 WBC (Bld) 63.8 % Normal [facility] Comment on above: Order Comment: Speci men Type: BLOOD SPECIMENOrdering Facility: [facility] Address: [address] [place] [address] Performed By: #### 5 7021-8 ####[facility] LABCLIA [id number] [place] [address] Nucleated RBC (Bld) [#/Vol] 10*3/uL Normal <0.01 [facility] Comment on above: Order Comment: Speci men Type: BLOOD SPECIMENOrdering Facility: [facility] Address: [address] [place] [address] Performed By: #### 5 7021-8 ####[facility] LABCLIA [id number] [place] [address] Nucleated RBC/100 WBC (Bld) [Ratio] 0.0 /100 WBC Normal [facility] Comment on above: Order Comment: Speci men Type: BLOOD SPECIMENOrdering Facility: [facility] Address: [address] [place] [address] Performed By: #### 5 7021-8 ####[facility] LABCLIA [id number] [place] [address] Platelet mean volume (Bld) [Entitic vol] 9.4 fL Normal 9.0-12.7 [facility] Comment on above: Order Comment: Speci men Type: BLOOD SPECIMENOrdering Facility: [facility] Address: [address] [place] [address] Performed By: #### 5 7021-8 ####[facility] LABCLIA [id number] [place] [address] Platelets (Bld) [#/Vol] 290 10*3/uL Normal 150-400 [facility] Comment on above: Order Comment: Speci men Type: BLOOD SPECIMENOrdering Facility: [facility] Address: [address] [place] [address] Performed By: #### 5 7021-8 ####[facility] LABIA [id number] [place] [address] RBC (Bld) [#/Vol] 4.29 10*6/uL Normal 3.90-5.20 [facility] Comment on above: Order Comment: Speci men Type: BLOOD SPECIMENOrdering Facility: [facility] Address: [address] [place] [address] Performed By: #### 5 7021-8 ####[facility] LABIA [id number] [place] [address] WBC (Bld) [#/Vol] 10.04 10*3/uL Normal 3.70-11.00 [facility] Comment on above: Order Comment: Speci men Type: BLOOD SPECIMENOrdering Facility: [facility] Address: [address] [place] [address] Performed By: #### 5 7021-8 ####[facility] LABIA [id number] [place] [address] Comprehensive metabolic 2000 panelon 04-09-2023 Albumin [Mass/Vol] 4.1 g/dL Normal 3.9-4.9 [facility] Comment on above: Order Comment: Speci men Type: BLOOD SPECIMENOrdering Facility: [facility] Address: [address] [place] [address] Performed By: #### 2 4323-8 ####[facility] LABCLIA [id number] [place] [address] ALP [Catalytic activity/Vol] 74 U/L Normal 34-123 [facility] Comment on above: Order Comment: Speci men Type: BLOOD SPECIMENOrdering Facility: [facility] Address: [address] [place] [address] Performed By: #### 2 4323-8 ####[facility] LABCLIA [id number] [place] [address] ALT [Catalytic activity/Vol] 17 U/L Normal 7-38 [facility] Comment on above: Order Comment: Speci men Type: BLOOD SPECIMENOrdering Facility: [facility] Address: [address] [place] [address] Performed By: #### 2 4323-8 ####[facility] LABCLIA [id number] [place] [address] Anion gap [Moles/Vol] 12 mmol/L Normal 9-18 [facility] Comment on above: Order Comment: Speci men Type: BLOOD SPECIMENOrdering Facility: [facility] Address: [address] [place] [address] Performed By: #### 2 4323-8 ####[facility] LABCLIA [id number] [place] [address] AST [Catalytic activity/Vol] 11 U/L Low 13-35 [facility] Comment on above: Order Comment: Speci men Type: BLOOD SPECIMENOrdering Facility: [facility] Address: [address] [place] [address] Performed By: #### 2 4323-8 ####[facility] LABCLIA [id number] [place] [address] Bilirubin [Mass/Vol] 0.2 mg/dL Normal 0.2-1.3 [facility] Comment on above: Order Comment: Speci men Type: BLOOD SPECIMENOrdering Facility: [facility] Address: [address] [place] [address] Performed By: #### 2 4323-8 ####[facility] LABCLIA [id number] [place] [address] Calcium [Mass/Vol] 9.4 mg/dL Normal 8.5-10.2 [facility] Comment on above: Order Comment: Speci men Type: BLOOD SPECIMENOrdering Facility: [facility] Address: [address] [place] [address] Performed By: #### 2 4323-8 ####[facility] LABCLIA [id number] [place] [address] Chloride [Moles/Vol] 106 mmol/L High 97-105 [facility] Comment on above: Order Comment: Speci men Type: BLOOD SPECIMENOrdering Facility: [facility] Address: [address] [place] [address] Performed By: #### 2 4323-8 ####[facility] LABCLIA [id number] [place] [address] CO2 [Moles/Vol] 26 mmol/L Normal 22-30 [facility] Comment on above: Order Comment: Speci men Type: BLOOD SPECIMENOrdering Facility: [facility] Address: [address] [place] [address] Performed By: #### 2 4323-8 ####[facility] LABCLIA [id number] [place] [address] Creatinine [Mass/Vol] 0.89 mg/dL Normal 0.58-0.96 [facility] Comment on above: Order Comment: Speci men Type: BLOOD SPECIMENOrdering Facility: [facility] Address: [address] [place] [address] Performed By: #### 2 4323-8 ####[facility] LABCLIA [id number] [place] [address] Creatinine and Glomerular filtration rate.predicted panel (S/P/Bld) 83 mL/min/1.73m??? Normal >=60 [facility] Comment on above: Order Comment: Semaj cortés Type: BLOOD SPECIMENOrdering Facility: [facility] Address: [address] [place] [address] Result Comment: Erin mated Glomerular Filtration Rate [...] actual GFR. Performed By: #### 2 4323-8 ####[facility] LABCLIA [id number] [place] [address] Glucose [Mass/Vol] 120 mg/dL High 74-99 [facility] Comment on above: Order Comment: Semaj cortés Type: BLOOD SPECIMENOrdering Facility: [facility] Address: [address] [place] [address] Result Comment: The [place] [employer] (ADA) provides guidance for cutoff [...] Standards of Medical Care in Diabetes 2016, [place] [employer]. Diabetes Care. 2016.39(Suppl 1). Performed By: #### 2 4323-8 ####[facility] LABCLIA [id number] [place] [address] Potassium [Moles/Vol] 3.7 mmol/L Normal 3.7-5.1 [facility] Comment on above: Order Comment: Semaj cortés Type: BLOOD SPECIMENOrdering Facility: [facility] Address: [address] [id number] Performed By: #### 2 4323-8 ####[facility] LABCLIA [id number] [place] [address] Protein [Mass/Vol] 6.7 g/dL Normal 6.3-8.0 [facility] Comment on above: Order Comment: Speci men Type: BLOOD SPECIMENOrdering Facility: [facility] Address: [address] [place] [address] Performed By: #### 2 4323-8 ####[facility] LABCLIA [id number] [place] [address] Sodium [Moles/Vol] 144 mmol/L Normal 136-144 [facility] Comment on above: Order Comment: Speci men Type: BLOOD SPECIMENOrdering Facility: [facility] Address: [address] [place] [address] Performed By: #### 2 4323-8 ####[facility] LABCLIA [id number] [place] [address] Urea nitrogen [Mass/Vol] 24 mg/dL High 7-21 [facility] Comment on above: Order Comment: Speci men Type: BLOOD SPECIMENOrdering Facility: [facility] Address: [address] [place] [address] Performed By: #### 2 4323-8 ####[facility] LABCLIA [id number] [place] [address] Ferritin SerPl-mCncon 2022 Ferritin [Mass/Vol] 21.2 ng/mL Normal 14.7-205.1 [facility] Comment on above: Order Comment: Speci men Type: BLOOD SPECIMENOrdering Facility: [facility] Address: [address] [place] [address] Performed By: #### 2 276-4, 2284-8, 87275-1, 2132-9 ####[facility] LABCLIA [id number] [address] [address] [address] [place] Folate SerPl-mCncon 04-09-20 23 Folate [Mass/Vol] 10.7 ng/mL Normal >4.7 [facility] Comment on above: Order Comment: Speci men Type: BLOOD SPECIMENOrdering Facility: [facility] Address: [address] [place] [address] Performed By: #### 2 276-4, 2284-8, 70187-0, 2132-9 ####[facility] LABIA [id number] [place] [address] [place] INSULIN ANTIBODY BLDon 04-09 Insulin Ab Qn (S) <0.4 Normal <0.4 [facility] Comment on above: Order Comment: Speci men Type: BLOOD SPECIMENOrdering Facility: [facility] Address: [address] [place] [address] Result Comment: Anti -insulin antibody test is used as an aid in diagnosis and prognosis of autoimmune diabetes mellitus in combination with other tests such as anti-GAD65 and anti-IA-2 antibody. A single negative result cannot rule out autoimmune diabetes mellitus. The test is not reliable in patients who had previously received exogenous insulin. Clinical correlation is required. Performed By: #### I NSLAB ####[facility] LABIA [id number] [place] [address] [place] INSULIN ANTIBODY, QUALITATIVE Negative Normal Negative [facility] Comment on above: Order Comment: Speci men Type: BLOOD SPECIMENOrdering Facility: [facility] Address: [address] [place] [address] Performed By: #### I NSLAB ####[facility] LABIA [id number] [place] [address] [place] Insulin SerPl-aCncon 023 Insulin Qn 266.5 u[IU]/mL High 3.0-25.0 [facility] Comment on above: Order Comment: Speci men Type: BLOOD SPECIMENOrdering Facility: [facility] Address: [address] [place] [address] Performed By: #### 2 0448-7 ####[facility] LABIA [id number] [place] [id number] [place] Iron and Iron binding capaci ty panelon 04-09-2023 Iron [Mass/Vol] 105 ug/dL Normal 41-186 [facility] Comment on above: Order Comment: Speci men Type: BLOOD SPECIMENOrdering Facility: [facility] Address: [address] [place] [address] Performed By: #### 2 276-4, 2284-8, 47656-7, 9 ####[facility] LABIA [id number] [place] [address] [place] Iron binding capacity [Mass/Vol] 414 ug/dL High 232-386 [facility] Comment on above: Order Comment: Speci men Type: BLOOD SPECIMENOrdering Facility: [facility] Address: [address] [place] [address] Performed By: #### 2 276-4, 2284-8, 85187-9, 2132-01 ####[facility] [id number] [place] [address] [place] Iron/TIBC [Molar ratio] 25.4 % Normal 15.0-57.0 [facility] Comment on above: Order Comment: Speci men Type: BLOOD SPECIMENOrdering Facility: [facility] Address: [address] [place] [address] Performed By: #### 2 276-4, 2284-8, 02531-4, 2132-01 ####[facility] [id number] [place] [id number] [place] Vit B12 SerPl-[facility] Foundationon 023 Cobalamin (Vitamin B12) [Mass/Vol] 370 pg/mL Normal 232-1245 [facility] Comment on above: Order Comment: Speci men Type: BLOOD SPECIMENOrdering Facility: [facility] Address: [address] [place] [address] Performed By: #### 2 276-4, 2284-8, 30854-1, 2132-9 ####[facility] LABCLIA [id number] [place] [id number] [place] CNNURSEon 03-19-2023 CNNURSE Normal [facility] CNNURSEon 03-11-2023 CNNURSE Normal [facility] CNPNon 03-01-2023 CNPN Normal [facility] CNNURSEon 02-19-2023 CNNURSE Normal [facility] CNOVSPon 02-19-2023 CNOVSP Normal [facility] B2 Microglob SerPl-mCncon Whwx-0-Mducxxvrmmnel [Mass/Vol] 1.9 ug/mL Normal 0.8-2.4 [facility] Comment on above: Order Comment: Speci men Type: BLOOD SPECIMENOrdering Facility: [facility] Address: [address] [place] [address] Result Comment: Beta -2 Microglobulin test is performed using the [facility] immunoturbidimetric method. Results obtained with different methods or kits cannot be used interchangeably. Performed By: #### 1 952-1, 78821-0, 2276-4 ####[facility] LABCLIA [id number] [place] [address] [place] CBC W Auto Differential pane l (Bld)on 02-11-2023 Basophils (Bld) [#/Vol] 0.08 10*3/uL Normal <0.11 [facility] Comment on above: Order Comment: Speci men Type: BLOOD SPECIMENOrdering Facility: [facility] Address: [address] [id number] Performed By: #### 5 7021-8 ####[facility] LABCLIA [id number] [place] [address] Basophils/100 WBC (Bld) 0.8 % Normal [facility] Comment on above: Order Comment: Speci men Type: BLOOD SPECIMENOrdering Facility: [facility] Address: [address] [place] [address] Performed By: #### 5 7021-8 ####[facility] LABCLIA [id number] [place] [address] Differential cell count method Nom (Bld) Auto Normal [facility] Comment on above: Order Comment: Speci men Type: BLOOD SPECIMENOrdering Facility: [facility] Address: [address] [place] [address] Performed By: #### 5 7021-8 ####[facility] LABCLIA [id number] [place] [address] Eosinophils (Bld) [#/Vol] 0.16 10*3/uL Normal <0.46 [facility] Comment on above: Order Comment: Speci men Type: BLOOD SPECIMENOrdering Facility: [facility] Address: [address] [place] [address] Performed By: #### 5 7021-8 ####[facility] LABCLIA [id number] [place] [address] Eosinophils/100 WBC (Bld) 1.6 % Normal [facility] Comment on above: Order Comment: Speci men Type: BLOOD SPECIMENOrdering Facility: [facility] Address: [address] [place] [address] Performed By: #### 5 7021-8 ####[facility] LABCLIA [id number] [place] [address] Erythrocyte distribution width (RBC) [Ratio] 14.6 % Normal 11.5-15.0 [facility] Comment on above: Order Comment: Speci men Type: BLOOD SPECIMENOrdering Facility: [facility] Address: [address] [place] [address] Performed By: #### 5 7021-8 ####[facility] LABCLIA [id number] [place] [address] Hematocrit (Bld) [Volume fraction] 41.0 % Normal 36.0-46.0 [facility] Comment on above: Order Comment: Speci men Type: BLOOD SPECIMENOrdering Facility: [facility] Address: [address] [address] Performed By: #### 5 7021-8 ####[facility] LABCLIA [id number] [place] [address] Hemoglobin (Bld) [Mass/Vol] 13.2 g/dL Normal 11.5-15.5 [facility] Comment on above: Order Comment: Speci men Type: BLOOD SPECIMENOrdering Facility: [facility] Address: [address] [address] Performed By: #### 5 7021-8 ####[facility] LABIA [id number] [place] [address] Immature granulocytes (Bld) [#/Vol] 0.07 10*3/uL Normal <0.10 [facility] Comment on above: Order Comment: Speci men Type: BLOOD SPECIMENOrdering Facility: [facility] Address: [address] [address] Performed By: #### 5 7021-8 ####[facility] LABIA [id number] [place] [address] Immature granulocytes/100 WBC (Bld) 0.7 % Normal [facility] Comment on above: Order Comment: Speci men Type: BLOOD SPECIMENOrdering Facility: [facility] Address: [address] [address] Performed By: #### 5 7021-8 ####[facility] LABIA [id number] [place] [address] Lymphocytes (Bld) [#/Vol] 2.29 10*3/uL Normal 1.00-4.00 [facility] Comment on above: Order Comment: Speci men Type: BLOOD SPECIMENOrdering Facility: [facility] Address: [address] [address] Performed By: #### 5 7021-8 ####[facility] LABCLIA [id number] [place] [address] Lymphocytes/100 WBC (Bld) 22.4 % Normal [facility] Comment on above: Order Comment: Speci men Type: BLOOD SPECIMENOrdering Facility: [facility] Address: [address] [place] [address] Performed By: #### 5 7021-8 ####[facility] LABCLIA [id number] [place] [address] MCH (RBC) [Entitic mass] 30.6 pg Normal 26.0-34.0 [facility] Comment on above: Order Comment: Speci men Type: BLOOD SPECIMENOrdering Facility: [facility] Address: [address] [place] [address] Performed By: #### 5 7021-8 ####[facility] LABCLIA [id number] [place] [address] MCHC (RBC) [Mass/Vol] 32.2 g/dL Normal 30.5-36.0 [facility] Comment on above: Order Comment: Speci men Type: BLOOD SPECIMENOrdering Facility: [facility] Address: [address] [place] [address] Performed By: #### 5 7021-8 ####[facility] LABCLIA [id number] [place] [address] MCV (RBC) [Entitic vol] 94.9 fL Normal 80.0-100.0 [facility] Comment on above: Order Comment: Speci men Type: BLOOD SPECIMENOrdering Facility: [facility] Address: [address] [place] [address] Performed By: #### 5 7021-8 ####[facility] LABIA [id number] [place] [address] Monocytes (Bld) [#/Vol] 0.62 10*3/uL Normal <0.87 [facility] Comment on above: Order Comment: Speci men Type: BLOOD SPECIMENOrdering Facility: [facility] Address: [address] [address] Performed By: #### 5 7021-8 ####[facility] LABCLIA [id number] [place] [address] Monocytes/100 WBC (Bld) 6.1 % Normal [facility] Comment on above: Order Comment: Speci men Type: BLOOD SPECIMENOrdering Facility: [facility] Address: [address] [address] Performed By: #### 5 7021-8 ####[facility] LABCLIA [id number] [place] [address] Neutrophils (Bld) [#/Vol] 6.99 10*3/uL Normal 1.45-7.50 [facility] Comment on above: Order Comment: Speci men Type: BLOOD SPECIMENOrdering Facility: [facility] Address: [address] [address] Performed By: #### 5 7021-8 ####[facility] LABIA [id number] [place] [address] Neutrophils/100 WBC (Bld) 68.4 % Normal [facility] Comment on above: Order Comment: Speci men Type: BLOOD SPECIMENOrdering Facility: [facility] Address: [address] Performed By: #### 5 7021-8 ####[facility] LABCLIA [id number] [place] [address] Nucleated RBC (Bld) [#/Vol] 10*3/uL Normal <0.01 [facility] Comment on above: Order Comment: Speci men Type: BLOOD SPECIMENOrdering Facility: [facility] Address: [address] [place] [address] Performed By: #### 5 7021-8 ####[facility] LABCLIA [id number] [place] [address] Nucleated RBC/100 WBC (Bld) [Ratio] 0.0 /100 WBC Normal [facility] Comment on above: Order Comment: Speci men Type: BLOOD SPECIMENOrdering Facility: [facility] Address: [address] [place] [address] Performed By: #### 5 7021-8 ####[facility] LABCLIA [id number] [place] [address] Platelet mean volume (Bld) [Entitic vol] 9.6 fL Normal 9.0-12.7 [facility] Comment on above: Order Comment: Speci men Type: BLOOD SPECIMENOrdering Facility: [facility] Address: [address] [place] [address] Performed By: #### 5 7021-8 ####[facility] LABIA [id number] [place] [address] Platelets (Bld) [#/Vol] 258 10*3/uL Normal 150-400 [facility] Comment on above: Order Comment: Speci men Type: BLOOD SPECIMENOrdering Facility: [facility] Address: [address] [place] [address] Performed By: #### 5 7021-8 ####[facility] LABCLIA [id number] [place] [address] RBC (Bld) [#/Vol] 4.32 10*6/uL Normal 3.90-5.20 [facility] Comment on above: Order Comment: Speci men Type: BLOOD SPECIMENOrdering Facility: [facility] Address: [address] [place] [address] Performed By: #### 5 7021-8 ####[facility] LABIA [id number] [place] [address] WBC (Bld) [#/Vol] 10.21 10*3/uL Normal 3.70-11.00 [facility] Comment on above: Order Comment: Speci men Type: BLOOD SPECIMENOrdering Facility: [facility] Address: [address] [place] [address] Performed By: #### 5 7021-8 ####[facility] LABCLIA [id number] [place] [address] Calcium.ionized [Moles/Vol]o n 02-11-2023 Calcium.ionized (Bld) [Mass/Vol] 1.32 mmol/L High 1.08-1.30 [facility] Comment on above: Order Comment: Speci men Type: BLOOD SPECIMENOrdering Facility: [facility] Address: [address] [place] [address] Performed By: #### 1 995-0 ####[facility] LABIA [id number] [place] [address] [place] Calcium.ionized adjusted to pH 7.4 (Bld) [Moles/Vol] 1.27 mmol/L Normal 1.08-1.30 [facility] Comment on above: Order Comment: Speci men Type: BLOOD SPECIMENOrdering Facility: [facility] Address: [address] [place] [address] Performed By: #### 1 995-0 ####[facility] LABIA [id number] [place] [address] [place] Comprehensive metabolic 2000 panelon 02-11-2023 Albumin [Mass/Vol] 4.0 g/dL Normal 3.9-4.9 [facility] Comment on above: Order Comment: Speci men Type: BLOOD SPECIMENOrdering Facility: [facility] Address: [address] [place] [address] Performed By: #### 2 4323-8, 2532-0, 2777-1, 3084-1 ####[facility] LABCLIA [id number] [place] [address] ALP [Catalytic activity/Vol] 75 U/L Normal 34-123 [facility] Comment on above: Order Comment: Speci men Type: BLOOD SPECIMENOrdering Facility: [facility] Address: [address] [address] Performed By: #### 2 4323-8, 2532-0, 7-1, 3083-1 ####[facility] LABCLIA [id number] [place] [address] ALT [Catalytic activity/Vol] 21 U/L Normal 7-38 [facility] Comment on above: Order Comment: Speci men Type: BLOOD SPECIMENOrdering Facility: [facility] Address: [address] [place] [address] Performed By: #### 2 4323-8, 2-0, 2776-1, 3083-1 ####[facility] LABIA [id number] [place] [address] Anion gap [Moles/Vol] 11 mmol/L Normal 9-18 [facility] Comment on above: Order Comment: Speci men Type: BLOOD SPECIMENOrdering Facility: [facility] Address: [address] [place] [address] Performed By: #### 2 4323-8, 2-0, 2776-1, 3083-1 ####[facility] LABIA [id number] [place] [address] AST [Catalytic activity/Vol] 11 U/L Low 13-35 [facility] Comment on above: Order Comment: Speci men Type: BLOOD SPECIMENOrdering Facility: [facility] Address: [address] [place] [address] Performed By: #### 2 4323-8, 2532-0, 2776-1, 308-1 ####[facility] LABIA [id number] [place] [address] Bilirubin [Mass/Vol] mg/dL Low 0.2-1.3 [facility] Comment on above: Order Comment: Speci men Type: BLOOD SPECIMENOrdering Facility: [facility] Address: [address] [place] [address] Performed By: #### 2 4323-8, 2532-0, 2777-1, 3084-1 ####[facility] LABCLIA [id number] [place] [address] Calcium [Mass/Vol] 9.7 mg/dL Normal 8.5-10.2 [facility] Comment on above: Order Comment: Speci men Type: BLOOD SPECIMENOrdering Facility: [facility] Address: [address] [address] Performed By: #### 2 4323-8, 2532-0, 2777-1, 3084-1 ####[facility]IAN [facility] LABCLIA [id number] [place] [address] Chloride [Moles/Vol] 107 mmol/L High 97-105 [facility] Comment on above: Order Comment: Speci men Type: BLOOD SPECIMENOrdering Facility: [facility] Address: [address] [place] [address] Performed By: #### 2 4323-8, 2532-0, 2777-1, 3084-1 ####[facility] LABCLIA [id number] [place] [address] CO2 [Moles/Vol] 23 mmol/L Normal 22-30 [facility] Comment on above: Order Comment: Speci men Type: BLOOD SPECIMENOrdering Facility: [facility] Address: [address] [place] [address] Performed By: #### 2 4323-8, 2532-0, 2777-1, 3084-1 ####[facility] LABCLIA [id number] [place] [address] Creatinine [Mass/Vol] 0.76 mg/dL Normal 0.58-0.96 [facility] Comment on above: Order Comment: Speci men Type: BLOOD SPECIMENOrdering Facility: [facility] Address: [address] [place] [address] Performed By: #### 2 4323-8, 2532-0, 2777-1, 3084-1 ####[facility] LABCLIA [id number] [place] [address] Creatinine and Glomerular filtration rate.predicted panel (S/P/Bld) 100 mL/min/1.73m??? Normal >=60 [facility] Comment on above: Order Comment: Semaj cortés Type: BLOOD SPECIMENOrdering Facility: [facility] Address: [address] [place] [address] Result Comment: Erin mated Glomerular Filtration Rate [...] By: #### 2 4323-8, 2532-0, 2777-1, 3084-1 ####[facility] LABCLIA [id number] [place] [address] Glucose [Mass/Vol] 164 mg/dL High 74-99 [facility] Comment on above: Order Comment: Semaj cortés Type: BLOOD SPECIMENOrdering Facility: [facility] Address: [address] [place] [address] Result Comment: The [place] Diabetes Association (ADA) provides guidance for cutoff [...] Standards of Medical Care in Diabetes 2016, [place] [employer]. Diabetes Care. 2016.39(Suppl 1). Performed By: #### 2 4323-8, 2532-0, 2777-1, 3084-1 ####[facility] LABIA [id number] [place] [address] Potassium [Moles/Vol] 4.0 mmol/L Normal 3.7-5.1 [facility] Comment on above: Order Comment: Speci men Type: BLOOD SPECIMENOrdering Facility: [facility] Address: [address] [address] Performed By: #### 2 4323-8, 2532-0, 2777-1, 3084-1 ####[facility] LABIA [id number] [place] [address] Protein [Mass/Vol] 6.5 g/dL Normal 6.3-8.0 [facility] Comment on above: Order Comment: Speci men Type: BLOOD SPECIMENOrdering Facility: [facility] Address: [address] [place] [address] Performed By: #### 2 4323-8, 2532-0, 2776-1, 3084-1 ####[facility] [id number] [place] [address] Sodium [Moles/Vol] 141 mmol/L Normal 136-144 [facility] Comment on above: Order Comment: Speci men Type: BLOOD SPECIMENOrdering Facility: [facility] Address: [address] [place] [address] Performed By: #### 2 4323-8, 2532-0, 7-1, 3084-1 ####[facility] LABIA [id number] [place] [address] Urea nitrogen [Mass/Vol] 15 mg/dL Normal 7-21 [facility] Comment on above: Order Comment: Speci men Type: BLOOD SPECIMENOrdering Facility: [facility] Address: [address] [place] [address] Performed By: #### 2 4323-8, 2532-0, 2777-1, 3084-1 ####[facility]ITAL[facility] LABCLIA [id number] [place] [address] Ferritin SerPl-mCncon 2022 Ferritin [Mass/Vol] 34.2 ng/mL Normal 14.7-205.1 [facility] Comment on above: Order Comment: Speci men Type: BLOOD SPECIMENOrdering Facility: [facility] Address: [address] [place] [address] Performed By: #### 1 952-1, 46973-4, 2276-4 ####[facility] LABCLIA [id number] [address] [place] Folate SerPl-mCncon 02-12-20 Folate [Mass/Vol] ng/mL Normal >4.7 [facility] Comment on above: Order Comment: Speci men Type: BLOOD SPECIMENOrdering Facility: [facility] Address: [address] [place] [address] Result Comment: A re sult of > 20 ng/mL is not necessarily indicative of a pathologic or treatable condition: it reflects a limitation of the test methodology.Assay reference range: 4.8 to 24.2 ng/mL. Suitable for detection of folate deficiency.Reference:Folate III (Folate III) [package insert V 1.0 [place]]. [facility], [place], [place]: March 2015. Performed By: #### 2 885-2, 2132-9, 2284-8 ####[facility] LABIA [id number] [address] [place] IMMUNOFIXATION SCREEN, SERUM on 02-11-2023 MPA RESULT No M protein is identified. Normal No M protein is identified. [facility] Comment on above: Order Comment: Speci men Type: BLOOD SPECIMENOrdering Facility: [facility] Address: [address] [place] [address] Performed By: #### I [facility] ####[facility] LABCLIA [id number] [address] [place] STAFF REVIEW (MPA) Reviewed by Daphne vyas M.D. Normal [facility] Comment on above: Order Comment: Speci men Type: BLOOD SPECIMENOrdering Facility: [facility] Address: [address] [place] [address] Performed By: #### I FESC ####[facility] LABCLIA [id number] [place] [address] [place] IMMUNOGLOBULINS GAMon 2022 IgA [Mass/Vol] 178 mg/dL Normal 70-400 [facility] Comment on above: Order Comment: Speci men Type: BLOOD SPECIMENOrdering Facility: [facility] Address: [address] [place] [address] Performed By: #### S ERIMM ####[facility] LABCLIA [id number] [address] STATES OF [place] IgG [Mass/Vol] 534 mg/dL Low 700-1600 [facility] Comment on above: Order Comment: Speci men Type: BLOOD SPECIMENOrdering Facility: [facility] Address: [address] [place] [address] Performed By: #### S ERIMM ####[facility] LABCLIA [id number] [place] [address] [place] IgM [Mass/Vol] 453 mg/dL High 40-230 [facility] Comment on above: Order Comment: Speci men Type: BLOOD SPECIMENOrdering Facility: [facility] Address: [address] [place] [address] Performed By: #### S ERIMM ####[facility] LABIA [id number] [place] [address] [place] Iron and Iron binding capaci ty panelon 02-11-2023 Iron [Mass/Vol] 55 ug/dL Normal 41-186 [facility] Comment on above: Order Comment: Speci men Type: BLOOD SPECIMENOrdering Facility: [facility] Address: [address] [id number] Performed By: #### 1 952-1, 88441-4, 2276-4 ####[facility] LABCLIA [id number] [place] [address] [place] Iron binding capacity [Mass/Vol] 339 ug/dL Normal 232-386 [facility] Comment on above: Order Comment: Speci men Type: BLOOD SPECIMENOrdering Facility: [facility] Address: [address] Performed By: #### 1 952-1, 43180-7, 2275-4 ####[facility] LABIA [id number] [place] [address] [place] Iron/TIBC [Molar ratio] 16.2 % Normal 15.0-57.0 [facility] Comment on above: Order Comment: Speci men Type: BLOOD SPECIMENOrdering Facility: [facility] Address: [address] [place], [place] [address] Performed By: #### 1 952-1, 51826-4, 2275-4 ####[facility] LABIA [id number] [place] [address] [place] KAPPA/FARMER,FREE,SERon 2022 Immunoglobulin light chains.kappa.free (S) [Mass/Vol] 13.1 mg/L Normal 3.3-19.4 [facility] Comment on above: Order Comment: Speci [facility] Type: BLOOD SPECIMENOrdering Facility: [facility] Address: [address] [place], [place] [address] Result Comment: Rare ly, increased serum free light chains levels may not be detected or accurately quantified due to prozone phenomenon or in high viscosity samples using this immunoturbidimetric assay. Correlation with other laboratory results and clinical findings is recommended.The Rives Free Light Chain was performed using the Binding Site Optilite immunoturbidimetric method. Result obtained with different assay methods or kits cannot be used interchangeably. Performed By: #### K LFRS ####[facility] LABIA [id number] [address] Immunoglobulin light chains.kappa/Immunog lobulin light chains.lambda (S) [Mass ratio] 1.22 Normal 0.26-1.65 [facility] Comment on above: Order Comment: Speci men Type: BLOOD SPECIMENOrdering Facility: [facility] Address: [address] [place] [address] Performed By: #### K LFRS ####[facility] [id number] [address] Immunoglobulin light chains.lambda.free [Mass/Vol] 10.7 mg/L Normal 5.7-26.3 [facility] Comment on above: Order Comment: Speci [facility] Type: BLOOD SPECIMENOrdering Facility: [facility] Address: [address] [place] [address] Result Comment: Rare ly, increased serum free [...] used interchangeably. Performed By: #### K LFRS ####[facility] LABIA [id number] [place] [address] [place] LDH SerPl-cCncon 02-11-2023 LDH [Catalytic activity/Vol] 190 U/L Normal 135-214 [facility] Comment on above: Order Comment: Speci men Type: BLOOD SPECIMENOrdering Facility: [facility] Address: [address] [place] [address] Result Comment: Hemo lysis present. The origin [...] By: #### 2 4323-8, 2532-0, 2777-1, 3084-1 ####[facility]ITAL[facility] LABCLIA [id number] [place] [address] PROTEIN ELECTROPHORESIS SERU M (P)on 02-11-2023 Albumin [Mass/Vol] 3.61 g/dL Normal 3.43-5.41 [facility] Comment on above: Order Comment: Speci men Type: BLOOD SPECIMENOrdering Facility: [facility] Address: [address] [place] [address] Performed By: #### L [id number] ####[facility] LABCLIA [id number] [place] [address] [place] Alpha 1 globulin Elph [Mass/Vol] 0.31 g/dL Normal 0.18-0.43 [facility] Comment on above: Order Comment: Speci men Type: BLOOD SPECIMENOrdering Facility: [facility] Address: [address] [place] [address] Performed By: #### L [id number] ####[facility] LABCLIA [id number] [place] [address] [place] Alpha 2 globulin Elph [Mass/Vol] 0.76 g/dL Normal 0.42-0.98 [facility] Comment on above: Order Comment: Speci men Type: BLOOD SPECIMENOrdering Facility: [facility] Address: [address] [address] Performed By: #### L [id number] ####[facility] LABCLIA [id number] [place] [address] [place] Beta globulin Elph [Mass/Vol] 0.85 g/dL Normal 0.61-1.17 [facility] Comment on above: Order Comment: Speci men Type: BLOOD SPECIMENOrdering Facility: [facility] Address: [address] Performed By: #### L [id number] ####[facility] LABIA [id number] [address] [place] Gamma globulin Elph [Mass/Vol] 0.66 g/dL Normal 0.53-1.51 [facility] Comment on above: Order Comment: Speci men Type: BLOOD SPECIMENOrdering Facility: [facility] Address: [address] [address] Performed By: #### L [id number] ####[facility] [id number] [address] OF [place] M-PROTEIN LOCATION Normal [facility] Comment on above: Order Comment: Speci men Type: BLOOD SPECIMENOrdering Facility: [facility] Address: [address] [place] [address] Result Comment: Not Applicable. Performed By: #### L [id number] ####[facility] [id number] [place] [address] [place] Protein Fractions [Interp] No definitive M protein is identified on protein electrophoresis. Normal No definitive M protein is identified on protein electrophore sis. [facility] Comment on above: Order Comment: Speci men Type: BLOOD SPECIMENOrdering Facility: [facility] Address: [address] [address] Performed By: #### L [id number] ####[facility] LABIA [id number] [address] [place] Protein.monoclonal Elph [Mass/Vol] 0.00 g/dL Normal <=0.00 [facility] Comment on above: Order Comment: Speci men Type: BLOOD SPECIMENOrdering Facility: [facility] Address: [address] [address] Performed By: #### L [id number] ####[facility] LABIA [id number] [place] [address] [place] SPE STAFF REVIEW Reviewed by Daphne vyas M.D. Normal [facility] Comment on above: Order Comment: Speci men Type: BLOOD SPECIMENOrdering Facility: [facility] Address: [address] [place] [address] Performed By: #### L [id number] ####[facility] LABCLIA [id number] [place] [address] [place] Phosphate SerPl-mCncon 02-11 Phosphate [Mass/Vol] 3.4 mg/dL Normal 2.7-4.8 [facility] Comment on above: Order Comment: Speci men Type: BLOOD SPECIMENOrdering Facility: [facility] Address: [address] [place] [address] Performed By: #### 2 4323-8, 2532-0, 2777-1, 3084-1 ####[facility] LABCLIA [id number] [place] [address] Prot SerPl-mCncon 02-11-2023 Protein [Mass/Vol] 6.2 g/dL Low 6.3-8.0 [facility] Comment on above: Order Comment: Speci men Type: BLOOD SPECIMENOrdering Facility: [facility] Address: [address] [place] [address] Performed By: #### 2 885-2, 2132-9, 2284-8 ####[facility] LABCLIA [id number] [place] [address] [place] Urate SerPl-mCncon Urate [Mass/Vol] 4.3 mg/dL Normal 2.5-6.6 [facility] Comment on above: Order Comment: Speci men Type: BLOOD SPECIMENOrdering Facility: [facility] Address: [address] [place] [address] Performed By: #### 2 4323-8, 2532-0, 2777-1, 3084-1 ####[facility] LABCLIA [id number] [place] [address] Vit B12 [facility] Foundationon 023 Cobalamin (Vitamin B12) [Mass/Vol] 598 pg/mL Normal 232-1245 [facility] Comment on above: Order Comment: Speci men Type: BLOOD SPECIMENOrdering Facility: [facility] Address: [address] [place] [address] Performed By: #### 2 885-2, 2132-9, 2284-8 ####[facility] LABIA [id number] [address] [place] CNPNon 02-04-2023 CNPN Normal [facility] CNPNon 01-24-2023 CNPN Normal [facility] 25(OH)D3 [facility] 2022 25-hydroxyvitamin D3 [Mass/Vol] 25.1 ng/mL Low 31.0-80.0 [facility] Comment on above: Order Comment: Speci men Type: BLOOD SPECIMENOrdering Facility: [facility] Address: [address] [place] [address] Result Comment: Clas sification of 25 [place] Vitamin D status:Deficiency/Insufficiency: < or = 30 ng/ml.Sufficiency/Optimal Levels: 31-80 ng/mLToxicity: > 100 ng/mL.Test performed by chemiluminescent immunoassay. Performed By: #### 1 989-3 ####[facility] LABIA [id number] [address] [place] CBC panel Auto (Bld)on 01-22 Erythrocyte distribution width (RBC) [Ratio] 14.8 % Normal 11.5-15.0 [facility] Comment on above: Order Comment: Speci men Type: BLOOD SPECIMENOrdering Facility: [facility] Address: [address] [place] [address] Performed By: #### 5 8410-2 ####[facility] LABCLIA [id number] [place] [address] Hematocrit (Bld) [Volume fraction] 40.9 % Normal 36.0-46.0 [facility] Comment on above: Order Comment: Speci men Type: BLOOD SPECIMENOrdering Facility: [facility] Address: [address] [place] [address] Performed By: #### 5 8410-2 ####[facility] LABIA [id number] [place] [address] Hemoglobin (Bld) [Mass/Vol] 13.4 g/dL Normal 11.5-15.5 [facility] Comment on above: Order Comment: Speci men Type: BLOOD SPECIMENOrdering Facility: [facility] Address: [address] [place] [address] Performed By: #### 5 8410-2 ####[facility] LABIA [id number] [place] [address] MCH (RBC) [Entitic mass] 30.1 pg Normal 26.0-34.0 [facility] Comment on above: Order Comment: Speci men Type: BLOOD SPECIMENOrdering Facility: [facility] Address: [address] [place] [address] Performed By: #### 5 8410-2 ####[facility] LABIA [id number] [place] [address] MCHC (RBC) [Mass/Vol] 32.8 g/dL Normal 30.5-36.0 [facility] Comment on above: Order Comment: Speci men Type: BLOOD SPECIMENOrdering Facility: [facility] Address: [address] [place] [address] Performed By: #### 5 8410-2 ####[facility] LABIA [id number] [place] [address] MCV (RBC) [Entitic vol] 91.9 fL Normal 80.0-100.0 [facility] Comment on above: Order Comment: Speci men Type: BLOOD SPECIMENOrdering Facility: [facility] Address: [address] [address] Performed By: #### 5 8410-2 ####[facility] LABCLIA [id number] [place] [address] Nucleated RBC (Bld) [#/Vol] 10*3/uL Normal <0.01 [facility] Comment on above: Order Comment: Speci men Type: BLOOD SPECIMENOrdering Facility: [facility] Address: [address] [address] Performed By: #### 5 8410-2 ####[facility] LABCLIA [id number] [place] [address] Platelet mean volume (Bld) [Entitic vol] 9.6 fL Normal 9.0-12.7 [facility] Comment on above: Order Comment: Speci men Type: BLOOD SPECIMENOrdering Facility: [facility] Address: [address] [address] Performed By: #### 5 8410-2 ####[facility] LABCLIA [id number] [place] [address] Platelets (Bld) [#/Vol] 285 10*3/uL Normal 150-400 [facility] Comment on above: Order Comment: Speci men Type: BLOOD SPECIMENOrdering Facility: [facility] Address: [address] [address] Performed By: #### 5 8410-2 ####[facility] LABCLIA [id number] [place] [address] RBC (Bld) [#/Vol] 4.45 10*6/uL Normal 3.90-5.20 [facility] Comment on above: Order Comment: Speci men Type: BLOOD SPECIMENOrdering Facility: [facility] Address: [address] [place] [address] Performed By: #### 5 8410-2 ####[facility] LABCLIA [id number] [place] [address] WBC (Bld) [#/Vol] 13.80 10*3/uL High 3.70-11.00 [facility] Comment on above: Order Comment: Speci men Type: BLOOD SPECIMENOrdering Facility: [facility] Address: [address] [place] [address] Performed By: #### 5 8410-2 ####[facility] LABCLIA [id number] [place] [address] CNNURSEon 01-22-2023 CNNURSE Normal [facility] CRP SerPl-mCncon 01-22-2023 CRP [Mass/Vol] mg/L Normal <0.9 [facility] Comment on above: Order Comment: Speci men Type: BLOOD SPECIMENOrdering Facility: [facility] Address: [address] [place] [address] Performed By: #### 1 988-5 ####[facility] LABCLIA [id number] [place] [address] [facility] Comprehensive metabolic 2000 panelon 01-22-2023 Albumin [Mass/Vol] 4.1 g/dL Normal 3.9-4.9 [facility] Comment on above: Order Comment: Speci men Type: BLOOD SPECIMENOrdering Facility: [facility] Address: [address] [place] [address] Performed By: #### 2 4323-8 ####[facility] LABCLIA [id number] [place] [address] ALP [Catalytic activity/Vol] 62 U/L Normal 34-123 [facility] Comment on above: Order Comment: Speci men Type: BLOOD SPECIMENOrdering Facility: [facility] Address: [address] [place] [address] Performed By: #### 2 4323-8 ####[facility] LABCLIA [id number] [place] [address] ALT [Catalytic activity/Vol] 27 U/L Normal 7-38 [facility] Comment on above: Order Comment: Speci men Type: BLOOD SPECIMENOrdering Facility: [facility] Address: [address] [address] Performed By: #### 2 4323-8 ####[facility] LABCLIA [id number] [place] [address] Anion gap [Moles/Vol] 10 mmol/L Normal 9-18 [facility] Comment on above: Order Comment: Speci men Type: BLOOD SPECIMENOrdering Facility: [facility] Address: [address] [address] Performed By: #### 2 4323-8 ####[facility] LABCLIA [id number] [place] [address] AST [Catalytic activity/Vol] 12 U/L Low 13-35 [facility] Comment on above: Order Comment: Speci men Type: BLOOD SPECIMENOrdering Facility: [facility] Address: [address] [address] Performed By: #### 2 4323-8 ####[facility] LABCLIA [id number] [place] [address] Bilirubin [Mass/Vol] 0.2 mg/dL Normal 0.2-1.3 [facility] Comment on above: Order Comment: Speci men Type: BLOOD SPECIMENOrdering Facility: [facility] Address: [address] [address] Performed By: #### 2 4323-8 ####[facility] LABCLIA [id number] [place] [address] Calcium [Mass/Vol] 9.4 mg/dL Normal 8.5-10.2 [facility] Comment on above: Order Comment: Speci men Type: BLOOD SPECIMENOrdering Facility: [facility] Address: [address] [place] [address] Performed By: #### 2 4323-8 ####[facility] LABCLIA [id number] [place] [address] Chloride [Moles/Vol] 107 mmol/L High 97-105 [facility] Comment on above: Order Comment: Speci men Type: BLOOD SPECIMENOrdering Facility: [facility] Address: [address] [place] [address] Performed By: #### 2 4323-8 ####[facility] LABCLIA [id number] [place] [address] CO2 [Moles/Vol] 24 mmol/L Normal 22-30 [facility] Comment on above: Order Comment: Speci men Type: BLOOD SPECIMENOrdering Facility: [facility] Address: [address] [place] [address] Performed By: #### 2 4323-8 ####[facility] LABCLIA [id number] [place] [address] Creatinine [Mass/Vol] 0.71 mg/dL Normal 0.58-0.96 [facility] Comment on above: Order Comment: Speci men Type: BLOOD SPECIMENOrdering Facility: [facility] Address: [address] [place] [address] Performed By: #### 2 4323-8 ####[facility] LABCLIA [id number] [place] [address] Creatinine and Glomerular filtration rate.predicted panel (S/P/Bld) 109 mL/min/1.73m??? Normal >=60 [facility] Comment on above: Order Comment: Speci men Type: BLOOD SPECIMENOrdering Facility: [facility] Address: [address] [place] [address] Result Comment: Erin mated Glomerular Filtration Rate [...] actual GFR. Performed By: #### 2 4323-8 ####[facility] LABCLIA [id number] [place] [address] Glucose [Mass/Vol] 60 mg/dL Low 74-99 [facility] Comment on above: Order Comment: Semaj cortés Type: BLOOD SPECIMENOrdering Facility: [facility] Address: [address] [address] Result Comment: The [place] Diabetes Association (ADA) provides guidance for cutoff [...] Standards of Medical Care in Diabetes 2016, [place] [employer]. Diabetes Care. 2016.39(Suppl 1). Performed By: #### 2 4323-8 ####[facility] LABCLIA [id number] [place] [address] Potassium [Moles/Vol] 4.0 mmol/L Normal 3.7-5.1 [facility] Comment on above: Order Comment: Semaj cortés Type: BLOOD SPECIMENOrdering Facility: [facility] Address: [address] [address] Performed By: #### 2 4323-8 ####[facility] LABCLIA [id number] [place] [address] Protein [Mass/Vol] 6.7 g/dL Normal 6.3-8.0 [facility] Comment on above: Order Comment: Semaj cortés Type: BLOOD SPECIMENOrdering Facility: [facility] Address: [address] [address] Performed By: #### 2 4323-8 ####[facility] LABCLIA [id number] [place] [address] Sodium [Moles/Vol] 141 mmol/L Normal 136-144 [facility] Comment on above: Order Comment: Speci men Type: BLOOD SPECIMENOrdering Facility: [facility] Address: [address] [place] [address] Performed By: #### 2 4323-8 ####[facility] LABCLIA [id number] [place] [address] Urea nitrogen [Mass/Vol] 13 mg/dL Normal 7-21 [facility] Comment on above: Order Comment: Speci men Type: BLOOD SPECIMENOrdering Facility: [facility] Address: [address] [place] [address] Performed By: #### 2 4323-8 ####[facility] LABCLIA [id number] [place] [address] ESR Westergren method (Bld) [Velocity]on 01-22-2023 ESR (Bld) [Velocity] 20 mm/h Normal 0-20 [facility] Comment on above: Order Comment: Speci men Type: BLOOD SPECIMENOrdering Facility: [facility] Address: [address] [place] [address] Performed By: #### 4 537-7 ####[facility] LABCLIA [id number] [place] [address] [place] CNNURSEon 12-29-2022 CNNURSE Normal [facility] CNPNon 12-18-2022 CNPN Normal [facility] CNPNon 12-16-2022 CNPN Normal [facility] CBC W Auto Differential pane l (Bld)on 12-08-2022 Basophils (Bld) [#/Vol] 0.06 10*3/uL Normal <0.11 [facility] Comment on above: Order Comment: Speci men Type: BLOOD SPECIMENOrdering Facility: [facility] Address: [address] [address] Performed By: #### 5 7021-8 ####[facility] LABCLIA [id number] [place] [address] Basophils/100 WBC (Bld) 0.4 % Normal [facility] Comment on above: Order Comment: Speci men Type: BLOOD SPECIMENOrdering Facility: [facility] Address: [address] [place] [address] Performed By: #### 5 7021-8 ####[facility] LABCLIA [id number] [place] [address] Differential cell count method Nom (Bld) Auto Normal [facility] Comment on above: Order Comment: Speci men Type: BLOOD SPECIMENOrdering Facility: [facility] Address: [address] [place] [address] Performed By: #### 5 7021-8 ####[facility] LABCLIA [id number] [place] [address] Eosinophils (Bld) [#/Vol] 0.11 10*3/uL Normal <0.46 [facility] Comment on above: Order Comment: Speci men Type: BLOOD SPECIMENOrdering Facility: [facility] Address: [address] [place] [address] Performed By: #### 5 7021-8 ####[facility] LABCLIA [id number] [place] [address] Eosinophils/100 WBC (Bld) 0.8 % Normal [facility] Comment on above: Order Comment: Speci men Type: BLOOD SPECIMENOrdering Facility: [facility] Address: [address] [place] [address] Performed By: #### 5 7021-8 ####[facility] LABCLIA [id number] [place] [address] Erythrocyte distribution width (RBC) [Ratio] 14.6 % Normal 11.5-15.0 [facility] Comment on above: Order Comment: Speci men Type: BLOOD SPECIMENOrdering Facility: [facility] Address: [address] [address] Performed By: #### 5 7021-8 ####[facility] LABCLIA [id number] [place] [address] Hematocrit (Bld) [Volume fraction] 42.0 % Normal 36.0-46.0 [facility] Comment on above: Order Comment: Speci men Type: BLOOD SPECIMENOrdering Facility: [facility] Address: [address] [place] [address] Performed By: #### 5 7021-8 ####[facility] LABCLIA [id number] [place] [address] Hemoglobin (Bld) [Mass/Vol] 13.3 g/dL Normal 11.5-15.5 [facility] Comment on above: Order Comment: Speci men Type: BLOOD SPECIMENOrdering Facility: [facility] Address: [address] [place] [address] Performed By: #### 5 7021-8 ####[facility] LABCLIA [id number] [place] [address] Immature granulocytes (Bld) [#/Vol] 0.11 10*3/uL High <0.10 [facility] Comment on above: Order Comment: Speci men Type: BLOOD SPECIMENOrdering Facility: [facility] Address: [address] [place] [address] Performed By: #### 5 7021-8 ####[facility] LABCLIA [id number] [place] [address] Immature granulocytes/100 WBC (Bld) 0.8 % Normal [facility] Comment on above: Order Comment: Speci men Type: BLOOD SPECIMENOrdering Facility: [facility] Address: [address] [place] [address] Performed By: #### 5 7021-8 ####[facility] LABCLIA [id number] [place] [address] Lymphocytes (Bld) [#/Vol] 3.75 10*3/uL Normal 1.00-4.00 [facility] Comment on above: Order Comment: Speci men Type: BLOOD SPECIMENOrdering Facility: [facility] Address: [address] [place] [address] Performed By: #### 5 7021-8 ####[facility] LABCLIA [id number] [place] [address] Lymphocytes/100 WBC (Bld) 27.4 % Normal [facility] Comment on above: Order Comment: Speci men Type: BLOOD SPECIMENOrdering Facility: [facility] Address: [address] [place] [address] Performed By: #### 5 7021-8 ####[facility] LABCLIA [id number] [place] [address] MCH (RBC) [Entitic mass] 29.8 pg Normal 26.0-34.0 [facility] Comment on above: Order Comment: Speci men Type: BLOOD SPECIMENOrdering Facility: [facility] Address: [address] [place] [address] Performed By: #### 5 7021-8 ####[facility] LABCLIA [id number] [place] [address] MCHC (RBC) [Mass/Vol] 31.7 g/dL Normal 30.5-36.0 [facility] Comment on above: Order Comment: Speci men Type: BLOOD SPECIMENOrdering Facility: [facility] Address: [address] [place] [address] Performed By: #### 5 7021-8 ####[facility] LABIA [id number] [place] [address] MCV (RBC) [Entitic vol] 94.0 fL Normal 80.0-100.0 [facility] Comment on above: Order Comment: Speci men Type: BLOOD SPECIMENOrdering Facility: [facility] Address: [address] [place] [address] Performed By: #### 5 7021-8 ####[facility] LABCLIA [id number] [place] [address] Monocytes (Bld) [#/Vol] 1.07 10*3/uL High <0.87 [facility] Comment on above: Order Comment: Speci men Type: BLOOD SPECIMENOrdering Facility: [facility] Address: [address] [place] [address] Performed By: #### 5 7021-8 ####[facility] LABCLIA [id number] [place] [address] Monocytes/100 WBC (Bld) 7.8 % Normal [facility] Comment on above: Order Comment: Speci men Type: BLOOD SPECIMENOrdering Facility: [facility] Address: [address] [place] [address] Performed By: #### 5 7021-8 ####[facility] LABCLIA [id number] [place] [address] Neutrophils (Bld) [#/Vol] 8.57 10*3/uL High 1.45-7.50 [facility] Comment on above: Order Comment: Speci men Type: BLOOD SPECIMENOrdering Facility: [facility] Address: [address] [place] [address] Performed By: #### 5 7021-8 ####[facility] LABCLIA [id number] [place] [address] Neutrophils/100 WBC (Bld) 62.8 % Normal [facility] Comment on above: Order Comment: Speci men Type: BLOOD SPECIMENOrdering Facility: [facility] Address: [address] [place] [address] Performed By: #### 5 7021-8 ####[facility] LABCLIA [id number] [place] [address] Nucleated RBC (Bld) [#/Vol] 10*3/uL Normal <0.01 [facility] Comment on above: Order Comment: Speci men Type: BLOOD SPECIMENOrdering Facility: [facility] Address: [address] [place] [address] Performed By: #### 5 7021-8 ####[facility] LABCLIA [id number] [place] [address] Nucleated RBC/100 WBC (Bld) [Ratio] 0.0 /100 WBC Normal [facility] Comment on above: Order Comment: Speci men Type: BLOOD SPECIMENOrdering Facility: [facility] Address: [address] [place] [address] Performed By: #### 5 7021-8 ####[facility] LABIA [id number] [place] [address] Platelet mean volume (Bld) [Entitic vol] 9.6 fL Normal 9.0-12.7 [facility] Comment on above: Order Comment: Speci men Type: BLOOD SPECIMENOrdering Facility: [facility] Address: [address] [place] [address] Performed By: #### 5 7021-8 ####[facility] LABCLIA [id number] [place] [address] Platelets (Bld) [#/Vol] 301 10*3/uL Normal 150-400 [facility] Comment on above: Order Comment: Speci men Type: BLOOD SPECIMENOrdering Facility: [facility] Address: [address] [place] [address] Performed By: #### 5 7021-8 ####[facility] LABIA [id number] [place] [address] RBC (Bld) [#/Vol] 4.47 10*6/uL Normal 3.90-5.20 [facility] Comment on above: Order Comment: Speci men Type: BLOOD SPECIMENOrdering Facility: [facility] Address: [address] [place] [address] Performed By: #### 5 7021-8 ####[facility] LABCLIA [id number] [place] [address] WBC (Bld) [#/Vol] 13.67 10*3/uL High 3.70-11.00 [facility] Comment on above: Order Comment: Speci men Type: BLOOD SPECIMENOrdering Facility: [facility] Address: [address] [place] [address] Performed By: #### 5 7021-8 ####[facility] LABCLIA [id number] [place] [address] CNPNon 12-08-2022 CNPN Normal [facility] metabolic 2000 panelon 12-08-2022 Albumin [Mass/Vol] 4.3 g/dL Normal 3.9-4.9 [facility] Comment on above: Order Comment: Speci men Type: BLOOD SPECIMENOrdering Facility: [facility] Address: [address] [place] [address] Performed By: #### 2 4323-8 ####[facility] LABIA [id number] [place] [address] ALP [Catalytic activity/Vol] 63 U/L Normal 34-123 [facility] Comment on above: Order Comment: Speci men Type: BLOOD SPECIMENOrdering Facility: [facility] Address: [address] [place] [address] Performed By: #### 2 4323-8 ####[facility] LABCLIA [id number] [place] [address] ALT [Catalytic activity/Vol] 19 U/L Normal 7-38 [facility] Comment on above: Order Comment: Speci men Type: BLOOD SPECIMENOrdering Facility: [facility] Address: [address] [place] [address] Performed By: #### 2 4323-8 ####[facility] LABCLIA [id number] [place] [address] Anion gap [Moles/Vol] 5 mmol/L Low 9-18 [facility] Comment on above: Order Comment: Speci men Type: BLOOD SPECIMENOrdering Facility: [facility] Address: [address] [place] [address] Performed By: #### 2 4323-8 ####[facility] LABCLIA [id number] [place] [address] AST [Catalytic activity/Vol] 10 U/L Low 13-35 [facility] Comment on above: Order Comment: Speci men Type: BLOOD SPECIMENOrdering Facility: [facility] Address: [address] [place] [address] Performed By: #### 2 4323-8 ####[facility] LABCLIA [id number] [place] [address] Bilirubin [Mass/Vol] 0.2 mg/dL Normal 0.2-1.3 [facility] Comment on above: Order Comment: Speci men Type: BLOOD SPECIMENOrdering Facility: [facility] Address: [address] [place] [address] Performed By: #### 2 4323-8 ####[facility] LABCLIA [id number] [place] [address] Calcium [Mass/Vol] 9.9 mg/dL Normal 8.5-10.2 [facility] Comment on above: Order Comment: Speci men Type: BLOOD SPECIMENOrdering Facility: [facility] Address: [address] [place] [address] Performed By: #### 2 4323-8 ####[facility] LABCLIA [id number] [place] [address] Chloride [Moles/Vol] 106 mmol/L High 97-105 [facility] Comment on above: Order Comment: Speci men Type: BLOOD SPECIMENOrdering Facility: [facility] Address: [address] [place] [address] Performed By: #### 2 4323-8 ####[facility] LABCLIA [id number] [place] [address] CO2 [Moles/Vol] 26 mmol/L Normal 22-30 [facility] Comment on above: Order Comment: Speci men Type: BLOOD SPECIMENOrdering Facility: [facility] Address: [address] [place] [address] Performed By: #### 2 4323-8 ####[facility] LABCLIA [id number] [place] [address] Creatinine [Mass/Vol] 0.80 mg/dL Normal 0.58-0.96 [facility] Comment on above: Order Comment: Speci men Type: BLOOD SPECIMENOrdering Facility: [facility] Address: [address] [place] [address] Performed By: #### 2 4323-8 ####[facility] LABCLIA [id number] [place] [address] ESTIMATED GLOMERULAR FILTRATION RATE 94 mL/min/1.73m??? Normal >=60 [facility] Comment on above: Order Comment: Speci men Type: BLOOD SPECIMENOrdering Facility: [facility] Address: [address] [place] [address] Result Comment: Erin mated Glomerular Filtration Rate [...] actual GFR. Performed By: #### 2 4323-8 ####[facility] LABCLIA [id number] [place] [address] Glucose [Mass/Vol] 91 mg/dL Normal 74-99 [facility] Comment on above: Order Comment: Speci men Type: BLOOD SPECIMENOrdering Facility: [facility] Address: [address] [place] [address] Result Comment: The [place] Diabetes Association (ADA) provides guidance for cutoff [...] Standards of Medical Care in Diabetes 2016, [place] [employer]. Diabetes Care. 2016.39(Suppl 1). Performed By: #### 2 4323-8 ####[facility] LABCLIA [id number] [place] [address] Potassium [Moles/Vol] 3.9 mmol/L Normal 3.7-5.1 [facility] Comment on above: Order Comment: Speci men Type: BLOOD SPECIMENOrdering Facility: [facility] Address: [address] [place] [address] Performed By: #### 2 4323-8 ####[facility] LABCLIA [id number] [place] [address] Protein [Mass/Vol] 7.1 g/dL Normal 6.3-8.0 [facility] Comment on above: Order Comment: Speci men Type: BLOOD SPECIMENOrdering Facility: [facility] Address: [address] [place] [address] Performed By: #### 2 4323-8 ####[facility] LABCLIA [id number] [place] [address] Sodium [Moles/Vol] 137 mmol/L Normal 136-144 [facility] Comment on above: Order Comment: Speci men Type: BLOOD SPECIMENOrdering Facility: [facility] Address: [address] [place] [address] Performed By: #### 2 4323-8 ####[facility] LABCLIA [id number] [place] [address] Urea nitrogen [Mass/Vol] 20 mg/dL Normal 7-21 [facility] Comment on above: Order Comment: Speci men Type: BLOOD SPECIMENOrdering Facility: [facility] Address: [address] [place] [address] Performed By: #### 2 4323-8 ####[facility] LABCLIA [id number] [place] [address] Ferritin SerPl-mCncon 2022 Ferritin [Mass/Vol] 26.6 ng/mL Normal 14.7-205.1 [facility] Comment on above: Order Comment: Speci men Type: BLOOD SPECIMENOrdering Facility: [facility] Address: [address] [place] [address] Performed By: #### 5 0190-8, 2131-9, 6-4, 2284-8 ####[facility] LABIA [id number] [place] [address] [place] Folate SerPl-mCncon 12-09-19 23 Folate [Mass/Vol] 2.6 ng/mL Low >4.7 [facility] Comment on above: Order Comment: Speci men Type: BLOOD SPECIMENOrdering Facility: [facility] Address: [address] [place], [place] [address] Performed By: #### 5 0190-8, 2131-9, 6-4, 2283-8 ####[facility] LABIA [id number] [place] [address] [place] Iron and Iron binding capaci ty panelon 12-08-2022 Iron [Mass/Vol] 48 ug/dL Normal 41-186 [facility] Comment on above: Order Comment: Speci men Type: BLOOD SPECIMENOrdering Facility: [facility] Address: [address] [place], [place] [id number] Performed By: #### 5 0190-8, 9, 4, 8 ####[facility] LABCLIA [id number] [place] [address] [place] Iron binding capacity [Mass/Vol] 382 ug/dL Normal 232-386 [facility] Comment on above: Order Comment: Speci men Type: BLOOD SPECIMENOrdering Facility: [facility] Address: [address] [place] [address] Performed By: #### 5 0190-8, 9, 4, 2283-12 ####[facility] LABIA [id number] [place] [address] [place] Iron/TIBC [Molar ratio] 12.6 % Low 15.0-57.0 [facility] Comment on above: Order Comment: Speci men Type: BLOOD SPECIMENOrdering Facility: [facility] Address: [address] Performed By: #### 5 0190-8, 9, 2275-08, 2283-12 ####[facility] LABIA [id number] [place] [address] [place] Vit B12 [facility] 07-18-2 023 Cobalamin (Vitamin B12) [Mass/Vol] 336 pg/mL Normal 232-1245 [facility] Comment on above: Order Comment: Speci men Type: BLOOD SPECIMENOrdering Facility: [facility] Address: [address] Performed By: #### 5 0190-8, 9, 2275-08, 2283-12 ####[facility] LABCLIA [id number] [place] [address] [place] CNNURSEon 11-19-2022 CNNURSE Normal [facility] CNPNon 10-31-2022 CNPN Normal [facility] CNNURSEon 10-22-2022 CNNURSE Normal [facility] CNOVSPon 10-22-2022 CNOVSP Normal [facility] TPMT PHENOTYPE/ENZYME ACTIVI TYon 10-22-2022 TPMT ACTIVITY 33.5 U/mL Normal 24.0-44.0 [facility] Comment on above: Order Comment: Speci men Type: BLOOD SPECIMENOrdering Facility: [facility] Address: [address] [place] [id number] Result Comment: INTE RPRETIVE INFORMATION: Thiopurine Methyltransferase, [...] was developed and its performance characteristicsdetermined by [facility]. It has not been cleared orapproved by the [place] Food and Drug Administration. This test wasperformed in a CLIA certified laboratory and is intended forclinical purposes.Performed By: [facility] [place], [place] [address]Lygl[facility]wl Director: Ole Love MD, PhD Performed By: #### T PMT ####[facility] [id number] [place] [address] CNPNon 10-16-2022 CNPN Normal [facility] 25(OH)D3 [facility] 2022 25-hydroxyvitamin D3 [Mass/Vol] 28.3 ng/mL Low 31.0-80.0 [facility] Comment on above: Order Comment: Speci men Type: BLOOD SPECIMENOrdering Facility: [facility] Address: [address] [place] [address] Result Comment: Clas sification of 25 [place] Vitamin D status:Deficiency/Insufficiency: < or = 30 ng/ml.Sufficiency/Optimal Levels: 31-80 ng/mLToxicity: > 100 ng/mL.Test performed by chemiluminescent immunoassay. Performed By: #### 1 989-3 ####[facility] LABCLIA [id number] [facility] [id number] STATES OF [facility] CBC W Auto Differential pane l (Bld)on 10-15-2022 Basophils (Bld) [#/Vol] 0.07 10*3/uL Normal <0.11 [facility] Comment on above: Order Comment: Speci men Type: BLOOD SPECIMENOrdering Facility: [facility] Address: [address] [place] [address] Performed By: #### 5 7021-8 ####[facility] LABCLIA [id number] [place] [address] Basophils/100 WBC (Bld) 0.6 % Normal [facility] Comment on above: Order Comment: Speci men Type: BLOOD SPECIMENOrdering Facility: [facility] Address: [address] [place] [address] Performed By: #### 5 7021-8 ####[facility] LABCLIA [id number] [place] [address] Differential cell count method Nom (Bld) Auto Normal [facility] Comment on above: Order Comment: Speci men Type: BLOOD SPECIMENOrdering Facility: [facility] Address: [address] [place] [address] Performed By: #### 5 7021-8 ####[facility] LABCLIA [id number] [place] [address] Eosinophils (Bld) [#/Vol] 0.16 10*3/uL Normal <0.46 [facility] Comment on above: Order Comment: Speci men Type: BLOOD SPECIMENOrdering Facility: [facility] Address: [address] [place] [address] Performed By: #### 5 7021-8 ####[facility] LABCLIA [id number] [place] [address] Eosinophils/100 WBC (Bld) 1.3 % Normal [facility] Comment on above: Order Comment: Speci men Type: BLOOD SPECIMENOrdering Facility: [facility] Address: [address] [place] [address] Performed By: #### 5 7021-8 ####[facility] LABIA [id number] [place] [address] Erythrocyte distribution width (RBC) [Ratio] 14.6 % Normal 11.5-15.0 [facility] Comment on above: Order Comment: Speci men Type: BLOOD SPECIMENOrdering Facility: [facility] Address: [address] [place] [address] Performed By: #### 5 7021-8 ####[facility] LABIA [id number] [place] [address] Hematocrit (Bld) [Volume fraction] 40.8 % Normal 36.0-46.0 [facility] Comment on above: Order Comment: Speci men Type: BLOOD SPECIMENOrdering Facility: [facility] Address: [address] [place] [address] Performed By: #### 5 7021-8 ####[facility] LABIA [id number] [place] [address] Hemoglobin (Bld) [Mass/Vol] 13.1 g/dL Normal 11.5-15.5 [facility] Comment on above: Order Comment: Speci men Type: BLOOD SPECIMENOrdering Facility: [facility] Address: [address] [place] [address] Performed By: #### 5 7021-8 ####[facility] LABCLIA [id number] [place] [address] Immature granulocytes (Bld) [#/Vol] 0.07 10*3/uL Normal <0.10 [facility] Comment on above: Order Comment: Speci men Type: BLOOD SPECIMENOrdering Facility: [facility] Address: [address] [place] [address] Performed By: #### 5 7021-8 ####[facility] LABCLIA [id number] [place] [address] Immature granulocytes/100 WBC (Bld) 0.6 % Normal [facility] Comment on above: Order Comment: Speci men Type: BLOOD SPECIMENOrdering Facility: [facility] Address: [address] [place] [address] Performed By: #### 5 7021-8 ####[facility] LABCLIA [id number] [place] [address] Lymphocytes (Bld) [#/Vol] 3.62 10*3/uL Normal 1.00-4.00 [facility] Comment on above: Order Comment: Speci men Type: BLOOD SPECIMENOrdering Facility: [facility] Address: [address] [place] [address] Performed By: #### 5 7021-8 ####[facility] LABCLIA [id number] [place] [address] Lymphocytes/100 WBC (Bld) 30.3 % Normal [facility] Comment on above: Order Comment: Speci men Type: BLOOD SPECIMENOrdering Facility: [facility] Address: [address] [place] [address] Performed By: #### 5 7021-8 ####[facility] LABCLIA [id number] [place] [address] MCH (RBC) [Entitic mass] 29.2 pg Normal 26.0-34.0 [facility] Comment on above: Order Comment: Speci men Type: BLOOD SPECIMENOrdering Facility: [facility] Address: [address] [address] Performed By: #### 5 7021-8 ####[facility] LABCLIA [id number] [place] [address] MCHC (RBC) [Mass/Vol] 32.1 g/dL Normal 30.5-36.0 [facility] Comment on above: Order Comment: Speci men Type: BLOOD SPECIMENOrdering Facility: [facility] Address: [address] [place] [address] Performed By: #### 5 7021-8 ####[facility] LABIA [id number] [place] [address] MCV (RBC) [Entitic vol] 90.9 fL Normal 80.0-100.0 [facility] Comment on above: Order Comment: Speci men Type: BLOOD SPECIMENOrdering Facility: [facility] Address: [address] [place] [address] Performed By: #### 5 7021-8 ####[facility] LABIA [id number] [place] [address] Monocytes (Bld) [#/Vol] 0.66 10*3/uL Normal <0.87 [facility] Comment on above: Order Comment: Speci men Type: BLOOD SPECIMENOrdering Facility: [facility] Address: [address] [place] [address] Performed By: #### 5 7021-8 ####[facility] LABCLIA [id number] [place] [address] Monocytes/100 WBC (Bld) 5.5 % Normal [facility] Comment on above: Order Comment: Speci men Type: BLOOD SPECIMENOrdering Facility: [facility] Address: [address] [place] [address] Performed By: #### 5 7021-8 ####[facility] LABCLIA [id number] [place] [address] Neutrophils (Bld) [#/Vol] 7.35 10*3/uL Normal 1.45-7.50 [facility] Comment on above: Order Comment: Speci men Type: BLOOD SPECIMENOrdering Facility: [facility] Address: [address] [place] [address] Performed By: #### 5 7021-8 ####[facility] LABCLIA [id number] [place] [address] Neutrophils/100 WBC (Bld) 61.7 % Normal [facility] Comment on above: Order Comment: Speci men Type: BLOOD SPECIMENOrdering Facility: [facility] Address: [address] [place] [address] Performed By: #### 5 7021-8 ####[facility] LABCLIA [id number] [place] [address] Nucleated RBC (Bld) [#/Vol] 10*3/uL Normal <0.01 [facility] Comment on above: Order Comment: Speci men Type: BLOOD SPECIMENOrdering Facility: [facility] Address: [address] [place] [address] Performed By: #### 5 7021-8 ####[facility] LABCLIA [id number] [place] [address] Nucleated RBC/100 WBC (Bld) [Ratio] 0.0 /100 WBC Normal [facility] Comment on above: Order Comment: Speci men Type: BLOOD SPECIMENOrdering Facility: [facility] Address: [address] [place] [address] Performed By: #### 5 7021-8 ####[facility] LABCLIA [id number] [place] [address] Platelet mean volume (Bld) [Entitic vol] 9.7 fL Normal 9.0-12.7 [facility] Comment on above: Order Comment: Speci men Type: BLOOD SPECIMENOrdering Facility: [facility] Address: [address] Performed By: #### 5 7021-8 ####[facility] LABCLIA [id number] [place] [address] Platelets (Bld) [#/Vol] 295 10*3/uL Normal 150-400 [facility] Comment on above: Order Comment: Speci men Type: BLOOD SPECIMENOrdering Facility: [facility] Address: [address] [address] Performed By: #### 5 7021-8 ####[facility] LABCLIA [id number] [place] [address] RBC (Bld) [#/Vol] 4.49 10*6/uL Normal 3.90-5.20 [facility] Comment on above: Order Comment: Speci men Type: BLOOD SPECIMENOrdering Facility: [facility] Address: [address] [address] Performed By: #### 5 7021-8 ####[facility] LABIA [id number] [place] [address] WBC (Bld) [#/Vol] 11.93 10*3/uL High 3.70-11.00 [facility] Comment on above: Order Comment: Speci men Type: BLOOD SPECIMENOrdering Facility: [facility] [facility] Address: [address] [address] Performed By: #### 5 7021-8 ####[facility] LABCLIA [id number] [place] [address] CRP [facility] 10-15-2022 CRP [Mass/Vol] 0.3 mg/dL Normal <0.9 [facility] Comment on above: Order Comment: Speci men Type: BLOOD SPECIMENOrdering Facility: [facility] Address: [address] [place] [address] Performed By: #### 1 988-5, 2885-2, 2132-9 ####[facility] LABCLIA [id number] RUCHI BERRIOS [id number] [address] [place] Comprehensive metabolic 2000 panelon 10-15-2022 Albumin [Mass/Vol] 4.0 g/dL Normal 3.9-4.9 [facility] Comment on above: Order Comment: Speci men Type: BLOOD SPECIMENOrdering Facility: [facility] Address: [address] [place] [address] Performed By: #### 2 532-0, 75822-3 ####[facility] LABCLIA [id number] [place] [address] ALP [Catalytic activity/Vol] 59 U/L Normal 34-123 [facility] Comment on above: Order Comment: Speci men Type: BLOOD SPECIMENOrdering Facility: [facility] Address: [address] [place] [address] Performed By: #### 2 532-0, 65461-0 ####[facility] LABIA [id number] [place] [address] ALT [Catalytic activity/Vol] 19 U/L Normal 7-38 [facility] Comment on above: Order Comment: Speci men Type: BLOOD SPECIMENOrdering Facility: [facility] Address: [address] [place] [address] Performed By: #### 2 532-0, 80946-2 ####[facility] LABIA [id number] [place] [address] Anion gap [Moles/Vol] 12 mmol/L Normal 9-18 [facility] Comment on above: Order Comment: Speci men Type: BLOOD SPECIMENOrdering Facility: [facility] Address: [address] [place] [address] Performed By: #### 2 532-0, 80053-8 ####[facility] LABIA [id number] [place] [address] AST [Catalytic activity/Vol] 10 U/L Low 13-35 [facility] Comment on above: Order Comment: Speci men Type: BLOOD SPECIMENOrdering Facility: [facility] Address: [address] [address] Performed By: #### 2 532-0, ####[facility] LABCLIA [id number] [place] [address] Bilirubin [Mass/Vol] 0.2 mg/dL Normal 0.2-1.3 [facility] Comment on above: Order Comment: Speci men Type: BLOOD SPECIMENOrdering Facility: [facility] Address: [address] [address] Performed By: #### 2 532-0, ####JULIAN [facility] LABIA [id number] [place] [address] Calcium [Mass/Vol] 9.6 mg/dL Normal 8.5-10.2 [facility] Comment on above: Order Comment: Speci men Type: BLOOD SPECIMENOrdering Facility: [facility] Address: [address] [address] Performed By: #### 2 532-0, ####JULIAN [facility] LABIA [id number] [place] [address] Chloride [Moles/Vol] 104 mmol/L Normal 97-105 [facility] Comment on above: Order Comment: Speci men Type: BLOOD SPECIMENOrdering Facility: [facility] Address: [address] [address] Performed By: #### 2 532-0, ####[facility] LABIA [id number] [place] [address] CO2 [Moles/Vol] 21 mmol/L Low 22-30 [facility] Comment on above: Order Comment: Speci men Type: BLOOD SPECIMENOrdering Facility: [facility] Address: [address] [address] Performed By: #### 2 532-0, ####[facility] LABCLIA [id number] [place] [address] Creatinine [Mass/Vol] 0.72 mg/dL Normal 0.58-0.96 [facility] Comment on above: Order Comment: Semaj cortés Type: BLOOD SPECIMENOrdering Facility: [facility] Address: [address] [place] [address] Performed By: #### 2 532-0, 79622-6 ####[facility] LABCLIA [id number] [place] [address] ESTIMATED GLOMERULAR FILTRATION RATE 107 mL/min/1.73m??? Normal >=60 [facility] Comment on above: Order Comment: Semaj cortés Type: BLOOD SPECIMENOrdering Facility: [facility] Address: [address] [place] [address] Result Comment: Erin mated Glomerular Filtration Rate [...] actual GFR. Performed By: #### 2 532-0, 48187-5 ####[facility] LABCLIA [id number] [place] [address] Glucose [Mass/Vol] 157 mg/dL High 74-99 [facility] Comment on above: Order Comment: Semaj cortés Type: BLOOD SPECIMENOrdering Facility: [facility] Address: [address] [place] [address] Result Comment: The [place] Diabetes Association (ADA) provides guidance for cutoff [...] Standards of Medical Care in Diabetes 2016, [place] Diabetes Association. Diabetes Care. 2016.39(Suppl 1). Performed By: #### 2 532-0, ####[facility] LABCLIA [id number] [place] [address] Potassium [Moles/Vol] 3.8 mmol/L Normal 3.7-5.1 [facility] Comment on above: Order Comment: Speci men Type: BLOOD SPECIMENOrdering Facility: [facility] Address: [address] [address] Performed By: #### 2 532-0, ####[facility] LABIA [id number] [place] [address] Protein [Mass/Vol] 6.8 g/dL Normal 6.3-8.0 [facility] Comment on above: Order Comment: Speci men Type: BLOOD SPECIMENOrdering Facility: [facility] Address: [address] [address] Performed By: #### 2 532-0, ####[facility] LABIA [id number] [place] [address] Sodium [Moles/Vol] 137 mmol/L Normal 136-144 [facility] Comment on above: Order Comment: Speci men Type: BLOOD SPECIMENOrdering Facility: [facility] Address: [address] [address] Performed By: #### 2 532-0, ####[facility] LABIA [id number] [place] [address] Urea nitrogen [Mass/Vol] 16 mg/dL Normal 7-21 [facility] Comment on above: Order Comment: Speci men Type: BLOOD SPECIMENOrdering Facility: [facility] Address: [address] [address] Performed By: #### 2 532-0, 74936-9 ####[facility] LABIA [id number] [place] [address] ESR Westergren method (Bld) [Velocity]on 10-15-2022 ESR (Bld) [Velocity] 27 mm/h High 0-20 [facility] Comment on above: Order Comment: Speci men Type: BLOOD SPECIMENOrdering Facility: [facility] Address: [address] [place] [address] Performed By: #### 4 537-7 ####[facility] LABIA [id number] [address] IMMUNOFIXATION SCREEN, SERUM on 10-15-2022 MPA RESULT No M protein is identified. Normal No M protein is identified. [facility] Comment on above: Order Comment: Speci men Type: BLOOD SPECIMENOrdering Facility: [facility] Address: [address] [place] [address] Performed By: #### I FES ####[facility] LABIA [id number] [address] [place] STAFF REVIEW (MPA) Reviewed by Chapito holt MD, Ph.D ([id number]) Normal [facility] Comment on above: Order Comment: Speci men Type: BLOOD SPECIMENOrdering Facility: [facility] Address: [address] [place], [place] [address] Performed By: #### I FESC ####[facility] LABIA [id number] [place] [id number] [place] IMMUNOGLOBULINS GAMon 2022 IgA [Mass/Vol] 184 mg/dL Normal 70-400 [facility] Comment on above: Order Comment: Speci men Type: BLOOD SPECIMENOrdering Facility: [facility] Address: [address] [address] Performed By: #### S ERIMM ####[facility] LABCLIA [id number] [place] [address] [place] IgG [Mass/Vol] 540 mg/dL Low 700-1600 [facility] Comment on above: Order Comment: Speci men Type: BLOOD SPECIMENOrdering Facility: [facility] Address: [address] [place] [address] Performed By: #### S ERIMM ####[facility] LABCLIA [id number] [address] [place] IgM [Mass/Vol] 504 mg/dL High 40-230 [facility] Comment on above: Order Comment: Speci men Type: BLOOD SPECIMENOrdering Facility: [facility] Address: [address] [place] [address] Performed By: #### S ERIMM ####[facility] LABIA [id number] [place] [address] [place] KAPPA/FARMER,FREE,SERon 2022 Immunoglobulin light chains.kappa.free (S) [Mass/Vol] 14.2 mg/L Normal 3.3-19.4 [facility] Comment on above: Order Comment: Speci men Type: BLOOD SPECIMENOrdering Facility: [facility] Address: [address] [place] [address] Result Comment: Rare ly, increased serum free light chains levels may not be detected or accurately quantified due to prozone phenomenon or in high viscosity samples using this immunoturbidimetric assay. Correlation with other laboratory results and clinical findings is recommended.The Rives Free Light Chain was performed using the Binding Site Optilite immunoturbidimetric method. Result obtained with different assay methods or kits cannot be used interchangeably. Performed By: #### K LFRS ####[facility] LABIA [id number] [address] [place] Immunoglobulin light chains.kappa/Immunog lobulin light chains.lambda (S) [Mass ratio] 1.34 Normal 0.26-1.65 [facility] Comment on above: Order Comment: Speci men Type: BLOOD SPECIMENOrdering Facility: [facility] Address: [address] [place] [address] Performed By: #### K LFRS ####[facility] LABCLIA [id number] [place] [address] [place] Immunoglobulin light chains.lambda.free [Mass/Vol] 10.6 mg/L Normal 5.7-26.3 [facility] Comment on above: Order Comment: Speci men Type: BLOOD SPECIMENOrdering Facility: [facility] Address: [address] [place] [address] Result Comment: Rare ly, increased serum free [...] used interchangeably. Performed By: #### K LFRS ####[facility] LABIA [id number] [place] [address] [place] LDH SerPl-cCncon 10-15-2022 LDH [Catalytic activity/Vol] 155 U/L Normal 135-214 [facility] Comment on above: Order Comment: Speci men Type: BLOOD SPECIMENOrdering Facility: [facility] Address: [address] [place] [address] Performed By: #### 2 532-0, 99817-7 ####[facility] LABCLIA [id number] [place] [address] PROTEIN ELECTROPHORESIS SERU M WITH DANA (P)on 10-15-2022 Albumin [Mass/Vol] 3.92 g/dL Normal 3.43-5.41 [facility] Comment on above: Order Comment: Speci men Type: BLOOD SPECIMENOrdering Facility: [facility] Address: [address] [place] [address] Performed By: #### L [id number] ####[facility] LABIA [id number] [address] [place] Alpha 1 globulin Elph [Mass/Vol] 0.34 g/dL Normal 0.18-0.43 [facility] Comment on above: Order Comment: Speci men Type: BLOOD SPECIMENOrdering Facility: [facility] Address: [address] [place], [place] [address] Performed By: #### L [id number] ####[facility] [id number] [address] [place] Alpha 2 globulin Elph [Mass/Vol] 0.84 g/dL Normal 0.42-0.98 [facility] Comment on above: Order Comment: Speci men Type: BLOOD SPECIMENOrdering Facility: [facility] Address: [address] [place], [place] [address] Performed By: #### L [id number] ####[facility] [id number] [address] [place] Beta globulin Elph [Mass/Vol] 0.92 g/dL Normal 0.61-1.17 [facility] Comment on above: Order Comment: Speci men Type: BLOOD SPECIMENOrdering Facility: [facility] Address: [address] [place], [place] [address] Performed By: #### L [id number] ####[facility] [id number] [place] [address] [place] COMMENT (SERUM PROT ELECTRO) Monoclonal Protein analysis (immunofixation) is not indicated. Normal [facility] Comment on above: Order Comment: Speci men Type: BLOOD SPECIMENOrdering Facility: [facility] Address: [address] [place], [place] [address] Performed By: #### L [id number] ####[facility] [id number] [place] [address] [place] Gamma globulin Elph [Mass/Vol] 0.68 g/dL Normal 0.53-1.51 [facility] Comment on above: Order Comment: Speci men Type: BLOOD SPECIMENOrdering Facility: [facility] Address: [address] [place] [address] Performed By: #### L [id number] ####[facility] LABCLIA [id number] [address] [place] M-PROTEIN LOCATION Normal [facility] Comment on above: Order Comment: Speci men Type: BLOOD SPECIMENOrdering Facility: [facility] Address: [address] [place] [address] Result Comment: Not Applicable. Performed By: #### L [id number] ####[facility] LABCLIA [id number] [address] [place] Protein Fractions [Interp] No definitive M protein is identified on protein electrophoresis. Normal No definitive M protein is identified on protein electrophore sis. [facility] Comment on above: Order Comment: Speci men Type: BLOOD SPECIMENOrdering Facility: [facility] Address: [address] [place] [address] Performed By: #### L [id number] ####[facility] LABCLIA [id number] [address] [place] Protein.monoclonal Elph [Mass/Vol] 0.00 g/dL Normal <=0.00 [facility] Comment on above: Order Comment: Speci men Type: BLOOD SPECIMENOrdering Facility: [facility] Address: [address] [place] [address] Performed By: #### L [id number] ####[facility] LABIA [id number] [place] [address] [place] SPE STAFF REVIEW Reviewed by Chapito holt MD, Ph.D ([id number]) Normal [facility] Comment on above: Order Comment: Speci men Type: BLOOD SPECIMENOrdering Facility: [facility] Address: [address] [address] Performed By: #### L [id number] ####[facility] LABCLIA [id number] [address] Prot SerPl-mCncon 10-15-2022 Protein [Mass/Vol] 6.7 g/dL Normal 6.3-8.0 [facility] Comment on above: Order Comment: Speci men Type: BLOOD SPECIMENOrdering Facility: [facility] Address: [address] [address] Performed By: #### 1 988-5, 28809-22, 2132-01 ####[facility] LABIA [id number] [address] Vit B12 [facility] 023 Cobalamin (Vitamin B12) [Mass/Vol] 368 pg/mL Normal 232-1245 [facility] Comment on above: Order Comment: Speci men Type: BLOOD SPECIMENOrdering Facility: [facility] Address: [address] [address] Performed By: #### 1 988-5, 28809-22, 2132-01 ####[facility] [id number] [address] [place] CBC AUTO DIFFon 09-24-2022 BASO # 0.1 103/ul Normal 0.0-0.1 [facility] Comment on above: Performed By: #### U AMIC #### [facility] [address] [address] [address] Manda York Basophils/100 WBC (Bld) 0.6 % Normal 0.2-2.0 [facility] Comment on above: Performed By: #### U AMIC #### [facility] [address] [address] [address] Manda York EO # 0.1 103/ul Normal 0.0-0.7 [facility] Comment on above: Performed By: #### U AMIC #### [facility] [address] [address] [address] Manda York Eosinophils/100 WBC (Bld) 0.6 % Critically low 0.9-7.0 [facility] Comment on above: Performed By: #### U AMIC #### [facility] [address] [place] [address] Dr. Manda York Erythrocyte distribution width (RBC) [Ratio] 14.6 % Normal 11.0-15.0 [facility] Comment on above: Performed By: #### U AMIC #### [facility] [address] [place] [address] Dr. Manda York Hematocrit (Bld) [Volume fraction] 43.4 % Normal 36.0-48.0 [facility] Comment on above: Performed By: #### U AMIC #### [facility] [address] [place] [address] Dr. Manda York Hemoglobin (Bld) [Mass/Vol] 13.7 g/dL Normal 12.0-16.0 [facility] Comment on above: Performed By: #### U AMIC #### [facility] [address] [place] [address] Dr. Manda York IG # 0.12 10e3/ul Critically high 0.00-0.03 [facility] Comment on above: Performed By: #### U AMIC #### [facility] [address] [place] [address] Dr. Manda York IG % 0.8 % Critically high 0.0-0.5 [facility] Comment on above: Performed By: #### U AMIC #### [facility] [address] [place] [address] Dr. Manda York LYMPH # 2.6 103/ul Normal 1.2-3.8 [facility] Comment on above: Performed By: #### U AMIC #### [facility] [address] [place] [address] Dr. Manda York Lymphocytes/100 WBC (Bld) 18.3 % Critically low 20.5-60.0 [facility] Comment on above: Performed By: #### U AMIC #### [facility] [address] [place] [address] Dr. Manda York MANUAL DIFF REQ NO Normal [facility] Comment on above: Performed By: #### U AMIC #### [facility] [address] [place] [address] Dr. Manda York MCH (RBC) [Entitic mass] 29.0 pg Normal 26.7-34.0 [facility] Comment on above: Performed By: #### U AMIC #### [facility] [address] [place] [address] Dr. Manda York MCHC (RBC) [Mass/Vol] 31.6 g/dL Normal 29.9-35.2 [facility] Comment on above: Performed By: #### U AMIC #### [facility] [address] [place] [address] Dr. Manda York MCV (RBC) [Entitic vol] 91.8 fL Normal 81.0-99.0 [facility] Comment on above: Performed By: #### U AMIC #### [facility] [address] [place] [address] Dr. Manda York MONO # 0.7 103/ul Normal 0.3-0.8 [facility] Comment on above: Performed By: #### U AMIC #### [facility] [address] [place] [address] Dr. Manda York Monocytes/100 WBC (Bld) 5.1 % Normal 1.7-12.0 [facility] Comment on above: Performed By: #### U AMIC #### [facility] [address] [place] [address] Dr. Manda York NEUT # 10.6 103/ul Critically high 1.4-6.5 [facility] Comment on above: Performed By: #### U AMIC #### [facility] [address] [place] [address] Dr. Manda York Neutrophils/100 WBC (Bld) 74.6 % Normal 43.0-75.0 [facility] Comment on above: Performed By: #### U AMIC #### [facility] [address] [address] [address] Manda York Platelet mean volume (Bld) [Entitic vol] 9.4 fL Critically low 9.5-13.5 [facility] Comment on above: Performed By: #### U AMIC #### [facility] [address] [address] [address] Manda York PLT 307 103/ul Normal 150-450 [facility] Comment on above: Performed By: #### U AMIC #### [facility] [address] [address] [address] Manda York RBC 4.73 106/ul Normal 4.20-5.40 [facility] Comment on above: Performed By: #### U AMIC #### [facility] [address] [address] [address] Manda York WBC 14.2 103/ul Critically high 4.0-11.0 [facility] Comment on above: Performed By: #### U AMIC #### [facility] [address] [address] [address] Manda York CNNURSEon 09-24-2022 CNNURSE Normal [facility] FREE T4on 09-24-2022 Free T4 [Mass/Vol] 1.31 ng/dL Normal 0.76-1.46 [facility] Comment on above: Performed By: #### F T4 #### [facility] [address] [address] [address] Manda York GLYCOHEMOGLOBIN A1Con 2022 ADA RECOMMENDATION SEE BELOW Normal [facility] Comment on above: Result Comment: ADA RECOMMENDED LIMIT 4.0 - 6.0 ADA THERAPEUTIC TARGET < 7.0 ACTION SUGGESTED > 7.0 Performed By: #### A 1C #### [facility] [address] [place] [address] Dr. Manda York Glucose [Mass/Vol] 120 mg/dL Normal [facility] Comment on above: Performed By: #### A 1C #### [facility] [address] [place] [address] Dr. Manda York HbA1c (Bld) [Mass fraction] 5.8 % Normal 4.5-6.2 [facility] Comment on above: Performed By: #### A 1C #### [facility] [address] [place] [address] Dr. Manda York PREG QUANT HCGon 09-24-2022 HCG QUANT <1 Normal [facility] Comment on above: Performed By: #### F T4 #### [facility] [address] [place] [address] Dr. Manda York HCG RANGE SEE BELOW Normal [facility] Comment on above: Result Comment: 5-50 0.2-1 WEEK 50-500 1-2 WEEKS 100-5,000 2-3 WEEKS 500-10,000 3-4 WEEKS 1,000-50,000 4-5 WEEKS 10,000-100,000 5-6 WEEKS 15,000-200,000 6-8 WEEKS 10,000-100,000 2-3 MONTHS Performed By: #### F T4 #### [facility] [address] [place] [address] Dr. Manda York PROTIMEon 09-24-2022 INR Coag (PPP) [Relative time] {INR} Normal [facility] Comment on above: Performed By: #### F T4 #### [facility] [address] [place] [address] Dr. Manda York INR GUIDELINES SEE BELOW Normal [facility] Comment on above: Result Comment: SHERRY RED INR: 2.0 - 3.0 CONDITIONS NOT LISTED BELOW 2.5 - 3.5 FOR PROSTHETIC HEART VALVE REPLACEMENT 2.5 - 3.5 RECURRENT THROMBOSIS Performed By: #### F T4 #### [facility] [address] [place] [address] Dr. Manda York PT Coag (PPP) [Time] 9.6 s Normal 9.0-11.6 [facility] Comment on above: Performed By: #### F T4 #### [facility] [address] [place] [address] Dr. Manda York PTTon 09-24-2022 aPTT Coag (Bld) [Time] 28.2 s Normal 22.3-36.2 [facility] Comment on above: Performed By: #### F T4 #### [facility] [address] [address] [address] Manda York TSHon 09-24-2022 TSH 0.300 uIU/mL Critically low 0.358-3.740 [facility] Comment on above: Performed By: #### F T4 #### [facility] [address] [address] [address] Manda York US PELVIS TRANSVAGon 023 [...] by: AURORA SHAIKH Date: 2022-09-24 17:50 Normal [facility] PAP ACOG PANEL 2: 30 to 65on 09-18-2022 . . Normal [facility] Comment on above: Result Comment: Perf ormed at: WB Performed By: #### F T4 #### [facility] [address] [address] [address] Manda York Age Gdln ACOG Testing 30-65 Normal [facility] Comment on above: Performed By: #### F T4 #### [facility] [id number] Manda York DIAGNOSIS: Comment Normal [facility] Comment on above: Result Comment: NEGA TIVE FOR INTRAEPITHELIAL LESION OR MALIGNANCY. Performed at: WB Performed By: #### F T4 #### [facility] [address] [address] [address] Manda York HPV Aptima Negative Normal Negative [facility] Comment on above: Result Comment: This nucleic acid amplification test detects fourteen high-risk HPV types (16,18,31,33,35,39,45,51,52,56,58,59,66,68) without differentiation. Performed at: =G Performed By: #### F T4 #### [facility] [address] [address] [address] Manda York HPV Genotype Reflex Comment Normal [facility] Comment on above: Result Comment: Crit eria not met, HPV Genotype not performed. Performed at: WB Performed By: #### F T4 #### [facility] [address] [address] [address] Manda York Methodology: Comment Normal [facility] Comment on above: Result Comment: This liquid based ThinPrep(R) pap test was screened with the use of an image guided system. Performed at: WB Performed By: #### F T4 #### [facility] [address] [address] [address] Manda York Note: Comment Normal [facility] Comment on above: Result Comment: The Pap smear is a screening test designed to aid in the detection of premalignant and malignant conditions of the uterine cervix. It is not a diagnostic procedure and should not be used as the sole means of detecting cervical cancer. Both false-positive and false-negative reports do occur. . Performed at: WB Performed By: #### F T4 #### [facility] [address] [address] [address] Manda York Performed by: Comment Normal [facility] Comment on above: Result Comment: Lorena Peters, [facility] (ASCP) Performed at: WB Performed By: #### F T4 #### [facility] [address] [address] [address] Manda York Specimen adequacy: Comment Normal [facility] Comment on above: Result Comment: Sati sfactory for evaluation. Endocervical and/or squamous metaplastic cells (endocervical component) are present. Performed at: WB Performed By: #### F T4 #### [facility] [address] [address] [address] Manda York CNPNon 09-08-2022 CNPN Normal [facility] MG MAMM SCREEN 3D MARK CADon 09-01-2022 MG MAMM SCREEN 3D MARK CAD Patient: JONES HALEY Exam Date: 09/01/2022 : 1980 Gender:F Ordering : DR MADELAINE FERRIS . Admission #: [id number] Family : Order #: [id number] CLICK HERE TO VIEW EXAM RADIOLOGY REPORT [...] stomach cancer at age 56. LOCATION: [facility] BREAST COMPOSITION: Scattered areas fibroglandular density. FINDINGS: [...] Yusuf M.D. on 09/02/2022 at 12:32 Normal [facility] CNNURSEon 08-27-2022 CNNURSE Normal [facility] CNOVSPon 08-27-2022 CNOVSP Normal [facility] CNPNon 08-19-2022 CNPN Normal [facility] 25(OH)D3 SerPl-mCncon 2022 25-hydroxyvitamin D3 [Mass/Vol] 33.1 ng/mL Normal 31.0-80.0 [facility] Comment on above: Order Comment: Speci men Type: BLOOD SPECIMENOrdering Facility: [facility] Address: [address] [id number] Result Comment: Clas sification of 25 OH Vitamin D status:Deficiency/Insufficiency: < or = 30 ng/ml.Sufficiency/Optimal Levels: 31-80 ng/mLToxicity: > 100 ng/mL.Test performed by chemiluminescent immunoassay. Performed By: #### 1 989-3 ####[facility] LABCLIA [id number] [place] [address] [place] B2 Microglob SerPl-mCncon Lawz-1-Ziuemfarsraiq [Mass/Vol] 1.6 ug/mL Normal 0.8-2.4 [facility] Comment on above: Order Comment: Speci men Type: BLOOD SPECIMENOrdering Facility: [facility] Address: [address] Result Comment: Beta -2 Microglobulin test is performed using the [employer] immunoturbidimetric method. Results obtained with different methods or kits cannot be used interchangeably. Performed By: #### 1 952-1, 1987-5, 2885-2, 2132-9 ####[facility] LABCLIA [id number] [place] [address] [place] CBC W Auto Differential pane l (Bld)on 08-18-2022 Basophils (Bld) [#/Vol] 0.03 10*3/uL Normal <0.11 [facility] Comment on above: Order Comment: Speci men Type: BLOOD SPECIMENOrdering Facility: [facility] Address: [address] [place], [place] [address] Performed By: #### 5 7021-8 ####[facility] LABCLIA [id number] [place] [address] Basophils/100 WBC (Bld) 0.2 % Normal [facility] Comment on above: Order Comment: Speci men Type: BLOOD SPECIMENOrdering Facility: [facility] Address: [address] [place] [address] Performed By: #### 5 7021-8 ####[facility] LABCLIA [id number] [place] [address] Differential cell count method Nom (Bld) Auto Normal [facility] Comment on above: Order Comment: Speci men Type: BLOOD SPECIMENOrdering Facility: [facility] Address: [address] [place] [address] Performed By: #### 5 7021-8 ####[facility] LABCLIA [id number] [place] [address] Eosinophils (Bld) [#/Vol] 0.08 10*3/uL Normal <0.46 [facility] Comment on above: Order Comment: Speci men Type: BLOOD SPECIMENOrdering Facility: [facility] Address: [address] [place] [address] Performed By: #### 5 7021-8 ####[facility] LABCLIA [id number] [place] [address] Eosinophils/100 WBC (Bld) 0.5 % Normal [facility] Comment on above: Order Comment: Speci men Type: BLOOD SPECIMENOrdering Facility: [facility] Address: [address] [place] [address] Performed By: #### 5 7021-8 ####[facility] LABCLIA [id number] [place] [address] Erythrocyte distribution width (RBC) [Ratio] 14.6 % Normal 11.5-15.0 [facility] Comment on above: Order Comment: Speci men Type: BLOOD SPECIMENOrdering Facility: [facility] Address: [address] [place] [address] Performed By: #### 5 7021-8 ####[facility] LABCLIA [id number] [place] [address] Hematocrit (Bld) [Volume fraction] 41.1 % Normal 36.0-46.0 [facility] Comment on above: Order Comment: Speci men Type: BLOOD SPECIMENOrdering Facility: [facility] Address: [address] [place] [address] Performed By: #### 5 7021-8 ####[facility] LABCLIA [id number] [place] [address] Hemoglobin (Bld) [Mass/Vol] 13.1 g/dL Normal 11.5-15.5 [facility] Comment on above: Order Comment: Speci men Type: BLOOD SPECIMENOrdering Facility: [facility] Address: [address] [place] [address] Performed By: #### 5 7021-8 ####[facility] LABCLIA [id number] [place] [address] Immature granulocytes (Bld) [#/Vol] 0.11 10*3/uL High <0.10 [facility] Comment on above: Order Comment: Speci men Type: BLOOD SPECIMENOrdering Facility: [facility] Address: [address] [place] [address] Performed By: #### 5 7021-8 ####[facility] LABCLIA [id number] [place] [address] Immature granulocytes/100 WBC (Bld) 0.7 % Normal [facility] Comment on above: Order Comment: Speci men Type: BLOOD SPECIMENOrdering Facility: [facility] Address: [address] [place] [address] Performed By: #### 5 7021-8 ####[facility] LABCLIA [id number] [place] [address] Lymphocytes (Bld) [#/Vol] 3.19 10*3/uL Normal 1.00-4.00 [facility] Comment on above: Order Comment: Speci men Type: BLOOD SPECIMENOrdering Facility: [facility] Address: [address] [address] Performed By: #### 5 7021-8 ####[facility] LABCLIA [id number] [place] [address] Lymphocytes/100 WBC (Bld) 21.7 % Normal [facility] Comment on above: Order Comment: Speci men Type: BLOOD SPECIMENOrdering Facility: [facility] Address: [address] [place] [address] Performed By: #### 5 7021-8 ####[facility] LABCLIA [id number] [place] [address] MCH (RBC) [Entitic mass] 28.9 pg Normal 26.0-34.0 [facility] Comment on above: Order Comment: Speci men Type: BLOOD SPECIMENOrdering Facility: [facility] Address: [address] [place] [address] Performed By: #### 5 7021-8 ####[facility] LABCLIA [id number] [place] [address] MCHC (RBC) [Mass/Vol] 31.9 g/dL Normal 30.5-36.0 [facility] Comment on above: Order Comment: Speci men Type: BLOOD SPECIMENOrdering Facility: [facility] Address: [address] [place] [address] Performed By: #### 5 7021-8 ####[facility] LABCLIA [id number] [place] [address] MCV (RBC) [Entitic vol] 90.7 fL Normal 80.0-100.0 [facility] Comment on above: Order Comment: Speci men Type: BLOOD SPECIMENOrdering Facility: [facility] Address: [address] [place] [address] Performed By: #### 5 7021-8 ####[facility] LABCLIA [id number] [place] [address] Monocytes (Bld) [#/Vol] 0.87 10*3/uL High <0.87 [facility] Comment on above: Order Comment: Speci men Type: BLOOD SPECIMENOrdering Facility: [facility] Address: [address] [address] Performed By: #### 5 7021-8 ####[facility] LABCLIA [id number] [place] [address] Monocytes/100 WBC (Bld) 5.9 % Normal [facility] Comment on above: Order Comment: Speci men Type: BLOOD SPECIMENOrdering Facility: [facility] Address: [address] [address] Performed By: #### 5 7021-8 ####[facility] LABCLIA [id number] [place] [address] Neutrophils (Bld) [#/Vol] 10.44 10*3/uL High 1.45-7.50 [facility] Comment on above: Order Comment: Speci men Type: BLOOD SPECIMENOrdering Facility: [facility] Address: [address] [address] Performed By: #### 5 7021-8 ####[facility] LABCLIA [id number] [place] [address] Neutrophils/100 WBC (Bld) 71.0 % Normal [facility] Comment on above: Order Comment: Speci men Type: BLOOD SPECIMENOrdering Facility: [facility] Address: [address] [address] Performed By: #### 5 7021-8 ####[facility] LABCLIA [id number] [place] [address] Nucleated RBC (Bld) [#/Vol] 10*3/uL Normal <0.01 [facility] Comment on above: Order Comment: Speci men Type: BLOOD SPECIMENOrdering Facility: [facility] Address: [address] [place] [address] Performed By: #### 5 7021-8 ####[facility] LABCLIA [id number] [place] [address] Nucleated RBC/100 WBC (Bld) [Ratio] 0.0 /100 WBC Normal [facility] Comment on above: Order Comment: Speci men Type: BLOOD SPECIMENOrdering Facility: [facility] Address: [address] [place] [address] Performed By: #### 5 7021-8 ####[facility] LABCLIA [id number] [place] [address] Platelet mean volume (Bld) [Entitic vol] 9.8 fL Normal 9.0-12.7 [facility] Comment on above: Order Comment: Speci men Type: BLOOD SPECIMENOrdering Facility: [facility] Address: [address] [place] [address] Performed By: #### 5 7021-8 ####[facility] LABIA [id number] [place] [address] Platelets (Bld) [#/Vol] 309 10*3/uL Normal 150-400 [facility] Comment on above: Order Comment: Speci men Type: BLOOD SPECIMENOrdering Facility: [facility] Address: [address] [place] [address] Performed By: #### 5 7021-8 ####[facility] LABIA [id number] [place] [address] RBC (Bld) [#/Vol] 4.53 10*6/uL Normal 3.90-5.20 [facility] Comment on above: Order Comment: Speci men Type: BLOOD SPECIMENOrdering Facility: [facility] Address: [address] [place] [address] Performed By: #### 5 7021-8 ####[facility] LABIA [id number] [place] [address] WBC (Bld) [#/Vol] 14.72 10*3/uL High 3.70-11.00 [facility] Comment on above: Order Comment: Speci men Type: BLOOD SPECIMENOrdering Facility: [facility] Address: [address] [place] [address] Performed By: #### 5 7021-8 ####[facility] LABCLIA [id number] [place] [address] CRP SerPl-ncon 08-18-2022 CRP [Mass/Vol] 0.3 mg/dL Normal <0.9 [facility] Comment on above: Order Comment: Speci men Type: BLOOD SPECIMENOrdering Facility: [facility] Address: [address] [place] [address] Performed By: #### 1 952-1, 1987-09, 2885-2, 2132-9 ####[facility] LABCLIA [id number] [place] [address] [place] Calcium.ionized [Moles/Vol]o n 08-18-2022 Calcium.ionized (Bld) [Mass/Vol] 1.29 mmol/L Normal 1.08-1.30 [facility] Comment on above: Order Comment: Speci men Type: BLOOD SPECIMENOrdering Facility: [facility] Address: [address] [place] [address] Performed By: #### 1 995-0 ####[facility] LABCLIA [id number] [place] [address] [place] Calcium.ionized adjusted to pH 7.4 (Bld) [Moles/Vol] 1.27 mmol/L Normal 1.08-1.30 [facility] Comment on above: Order Comment: Speci men Type: BLOOD SPECIMENOrdering Facility: [facility] Address: [address] [place], [place] [address] Performed By: #### 1 995-0 ####[facility] LABCLIA [id number] [place] [address] [place] Comprehensive metabolic 2000 panelon 08-18-2022 Albumin [Mass/Vol] 4.2 g/dL Normal 3.9-4.9 [facility] Comment on above: Order Comment: Speci men Type: BLOOD SPECIMENOrdering Facility: [facility] Address: [address] [place] [address] Performed By: #### 2 532-0, 2777-1, 3084-1, 44800-6 ####[facility] LABCLIA [id number] [place] [address] ALP [Catalytic activity/Vol] 66 U/L Normal 34-123 [facility] Comment on above: Order Comment: Speci men Type: BLOOD SPECIMENOrdering Facility: [facility] Address: [address] [place] [address] Performed By: #### 2 532-0, 2777-1, 3084-1, 24679-4 ####[facility] LABIA [id number] [place] [address] ALT [Catalytic activity/Vol] 22 U/L Normal 7-38 [facility] Comment on above: Order Comment: Speci men Type: BLOOD SPECIMENOrdering Facility: [facility] Address: [address] [place] [address] Performed By: #### 2 532-0, 2777-1, 3084-1, 65015-6 ####[facility] LABIA [id number] [place] [address] Anion gap [Moles/Vol] 11 mmol/L Normal 9-18 [facility] Comment on above: Order Comment: Speci men Type: BLOOD SPECIMENOrdering Facility: [facility] Address: [address] [place] [address] Performed By: #### 2 532-0, 2777-1, 3084-1, 07216-7 ####[facility] LABIA [id number] [place] [address] AST [Catalytic activity/Vol] 9 U/L Low 13-35 [facility] Comment on above: Order Comment: Speci men Type: BLOOD SPECIMENOrdering Facility: [facility] Address: [address] [place] [address] Performed By: #### 2 532-0, 277-1, 3083-, ####JULIAN [facility] LABCLIA [id number] [place] [address] Bilirubin [Mass/Vol] 0.2 mg/dL Normal 0.2-1.3 [facility] Comment on above: Order Comment: Speci men Type: BLOOD SPECIMENOrdering Facility: [facility] Address: [address] [place] [address] Performed By: #### 2 532-0, 277-1, 3083-05, ####[facility] LABCLIA [id number] [place] [address] Calcium [Mass/Vol] 9.3 mg/dL Normal 8.5-10.2 [facility] Comment on above: Order Comment: Speci men Type: BLOOD SPECIMENOrdering Facility: [facility] Address: [address] [place] [address] Performed By: #### 2 532-0, 2776-1, 3083-05, ####[facility] LABCLIA [id number] [place] [address] Chloride [Moles/Vol] 106 mmol/L High 97-105 [facility] Comment on above: Order Comment: Speci men Type: BLOOD SPECIMENOrdering Facility: [facility] Address: [address] [place] [address] Performed By: #### 2 532-0, 2776-1, 3083-05, ####[facility] LABCLIA [id number] [place] [address] CO2 [Moles/Vol] 23 mmol/L Normal 22-30 [facility] Comment on above: Order Comment: Speci men Type: BLOOD SPECIMENOrdering Facility: [facility] Address: [address] Performed By: #### 2 532-0, 7-1, 3083-05, ####[facility] LABCLIA [id number] [place] [address] Creatinine [Mass/Vol] 0.68 mg/dL Normal 0.58-0.96 [facility] Comment on above: Order Comment: Speci men Type: BLOOD SPECIMENOrdering Facility: [facility] Address: [address] [address] Performed By: #### 2 532-0, 2776-1, 3083-05, ####[facility] LABCLIA [id number] [place] [address] ESTIMATED GLOMERULAR FILTRATION RATE 112 mL/min/1.73m??? Normal >=60 [facility] Comment on above: Order Comment: Speci men Type: BLOOD SPECIMENOrdering Facility: [facility] Address: [address] [address] Result Comment: Erin mated Glomerular Filtration Rate [...] Performed By: #### 2 532-0, 2777-1, 3083-05, ####[facility] LABCLIA [id number] [place] [address] Glucose [Mass/Vol] 119 mg/dL High 74-99 [facility] Comment on above: Order Comment: Speci men Type: BLOOD SPECIMENOrdering Facility: [facility] Address: [address] [address] Result Comment: The [place] Diabetes Association (ADA) provides guidance for cutoff [...] Standards of Medical Care in Diabetes 2016, [place] [employer]. Diabetes Care. 2016.39(Suppl 1). Performed By: #### 2 532-0, 2777-1, 3084-1, 82911-9 ####[facility] LABIA [id number] [place] [address] Potassium [Moles/Vol] 3.7 mmol/L Normal 3.7-5.1 [facility] Comment on above: Order Comment: Speci men Type: BLOOD SPECIMENOrdering Facility: [facility] Address: [address] [id number] Performed By: #### 2 532-0, 2777-1, 308-, 83525-7 ####[facility] LABIA [id number] [place] [address] Protein [Mass/Vol] 7.1 g/dL Normal 6.3-8.0 [facility] Comment on above: Order Comment: Speci men Type: BLOOD SPECIMENOrdering Facility: [facility] Address: [address] [id number] Performed By: #### 2 532-0, 2777-1, 308-, 99069-2 ####[facility] LABIA [id number] [place] [address] Sodium [Moles/Vol] 140 mmol/L Normal 136-144 [facility] Comment on above: Order Comment: Speci men Type: BLOOD SPECIMENOrdering Facility: [facility] Address: [address] [phone] Performed By: #### 2 532-0, 2777-1, 3084-1, 05955-6 ####[facility] LABCLIA [id number] [place] [address] Urea nitrogen [Mass/Vol] 11 mg/dL Normal 7-21 [facility] Comment on above: Order Comment: Speci men Type: BLOOD SPECIMENOrdering Facility: [facility] Address: [address] [place] [address] Performed By: #### 2 532-0, 2777-1, 3084-1, 31410-3 ####[facility] LABCLIA [id number] [place] [address] ESR Westergren method (Bld) [Velocity]on 08-18-2022 ESR (Bld) [Velocity] 25 mm/h High 0-20 [facility] Comment on above: Order Comment: Speci men Type: BLOOD SPECIMENOrdering Facility: [facility] Address: [address] [place] [address] Performed By: #### 4 537-7 ####[facility] [id number] [address] [place] IMMUNOFIXATION SCREEN, SERUM on 08-18-2022 MPA RESULT No M protein is identified. Normal No M protein is identified. [facility] Comment on above: Order Comment: Speci men Type: BLOOD SPECIMENOrdering Facility: [facility] Address: [address] [place], [place] [address] Performed By: #### I FESC ####[facility] LABIA [id number] [address] [place] STAFF REVIEW (MPA) Reviewed by Dr. Gregg Ortez MD [facility] Comment on above: Order Comment: Speci men Type: BLOOD SPECIMENOrdering Facility: [facility] Address: [address] [place] [address] Performed By: #### I FESC ####[facility] LABCLIA [id number] [place] [address] [place] IMMUNOGLOBULINS GAMon 2022 IgA [Mass/Vol] 188 mg/dL Normal 70-400 [facility] Comment on above: Order Comment: Speci men Type: BLOOD SPECIMENOrdering Facility: [facility] Address: [address] [place] [address] Performed By: #### S ERIMM ####[facility] LABCLIA [id number] [place] [address] [place] IgG [Mass/Vol] 591 mg/dL Low 700-1600 [facility] Comment on above: Order Comment: Speci men Type: BLOOD SPECIMENOrdering Facility: [facility] Address: [address] [place] [address] Performed By: #### S ERIMM ####[facility] LABCLIA [id number] [address] [place] IgM [Mass/Vol] 513 mg/dL High 40-230 [facility] Comment on above: Order Comment: Speci men Type: BLOOD SPECIMENOrdering Facility: [facility] Address: [address] [place] [address] Performed By: #### S ERIMM ####[facility] LABCLIA [id number] [place] [address] [place] KAPPA/FARMER,FREE,SERon 2022 Immunoglobulin light chains.kappa.free (S) [Mass/Vol] 13.9 mg/L Normal 3.3-19.4 [facility] Comment on above: Order Comment: Speci men Type: BLOOD SPECIMENOrdering Facility: [facility] Address: [address] [place] [address] Result Comment: Rare ly, increased serum free light chains levels may not be detected or accurately quantified due to prozone phenomenon or in high viscosity samples using this immunoturbidimetric assay. Correlation with other laboratory results and clinical findings is recommended.The Rives Free Light Chain was performed using the Binding Site [employer] immunoturbidimetric method. Result obtained with different assay methods or kits cannot be used interchangeably. Performed By: #### K LFRS ####[facility] LABCLIA [id number] [place] [address] [place] Immunoglobulin light chains.kappa/Immunog lobulin light chains.lambda (S) [Mass ratio] 1.51 Normal 0.26-1.65 [facility] Comment on above: Order Comment: Speci men Type: BLOOD SPECIMENOrdering Facility: [facility] Address: [address] [place] [address] Performed By: #### K LFRS ####[facility] LABIA [id number] [place] [address] [place] Immunoglobulin light chains.lambda.free [Mass/Vol] 9.2 mg/L Normal 5.7-26.3 [facility] Comment on above: Order Comment: Speci men Type: BLOOD SPECIMENOrdering Facility: [facility] Address: [address] [place] [address] Result Comment: Rare ly, increased serum free [...] used interchangeably. Performed By: #### K LFRS ####[facility] LABIA [id number] [place] [address] [place] LDH SerPl-cCncon 08-18-2022 LDH [Catalytic activity/Vol] 164 U/L Normal 135-214 [facility] Comment on above: Order Comment: Speci men Type: BLOOD SPECIMENOrdering Facility: [facility] Address: [address] [place] [address] Performed By: #### 2 532-0, 2777-1, 3084-1, 39485-4 ####[facility] LABCLIA [id number] [place] [address] PROTEIN ELECTROPHORESIS SERU M (P)on 08-18-2022 Albumin [Mass/Vol] 3.95 g/dL Normal 3.43-5.41 [facility] Comment on above: Order Comment: Speci men Type: BLOOD SPECIMENOrdering Facility: [facility] Address: [address] [place] [address] Performed By: #### L [id number] ####[facility] LABIA [id number] [place] [address] [place] Alpha 1 globulin Elph [Mass/Vol] 0.35 g/dL Normal 0.18-0.43 [facility] Comment on above: Order Comment: Speci men Type: BLOOD SPECIMENOrdering Facility: [facility] Address: [address] [place] [address] Performed By: #### L [id number] ####[facility] LABIA [id number] [place] [address] [place] Alpha 2 globulin Elph [Mass/Vol] 0.80 g/dL Normal 0.42-0.98 [facility] Comment on above: Order Comment: Speci men Type: BLOOD SPECIMENOrdering Facility: [facility] Address: [address] [place] [address] Performed By: #### L [id number] ####[facility] LABCLIA [id number] [place] [address] [place] Beta globulin Elph [Mass/Vol] 1.06 g/dL Normal 0.61-1.17 [facility] Comment on above: Order Comment: Speci men Type: BLOOD SPECIMENOrdering Facility: [facility] Address: [address] [place] [address] Performed By: #### L [id number] ####[facility] LABCLIA [id number] [address] [place] Gamma globulin Elph [Mass/Vol] 0.74 g/dL Normal 0.53-1.51 [facility] Comment on above: Order Comment: Speci men Type: BLOOD SPECIMENOrdering Facility: [facility] Address: [address] [place] [address] Performed By: #### L [id number] ####[facility] LABCLIA [id number] [address] [place] M-PROTEIN LOCATION Normal [facility] Comment on above: Order Comment: Speci men Type: BLOOD SPECIMENOrdering Facility: [facility] Address: [address] [place] [address] Result Comment: Not Applicable. Performed By: #### L [id number] ####[facility] LABIA [id number] [address] [place] Protein Fractions [Interp] No definitive M protein is identified on protein electrophoresis. Normal No definitive M protein is identified on protein electrophore sis. [facility] Comment on above: Order Comment: Speci men Type: BLOOD SPECIMENOrdering Facility: [facility] Address: [address] [place] [address] Performed By: #### L [id number] ####[facility] LABCLIA [id number] [address] [place] Protein.monoclonal Elph [Mass/Vol] 0.00 g/dL Normal <=0.00 [facility] Comment on above: Order Comment: Speci men Type: BLOOD SPECIMENOrdering Facility: [facility] Address: [address] [place] [address] Performed By: #### L [id number] ####[facility] LABCLIA [id number] [place] [address] [place] SPE STAFF REVIEW Reviewed by Dr. Gregg Ortez MD [facility] Comment on above: Order Comment: Speci men Type: BLOOD SPECIMENOrdering Facility: [facility] Address: [address] [place] [address] Performed By: #### L [id number] ####[facility] LABCLIA [id number] [place] [address] [place] Phosphate SerPl-mCncon 08-18 Phosphate [Mass/Vol] 3.6 mg/dL Normal 2.7-4.8 [facility] Comment on above: Order Comment: Speci men Type: BLOOD SPECIMENOrdering Facility: [facility] Address: [address] [place] [address] Performed By: #### 2 532-0, 277-1, 308-1, 97312-0 ####[facility] LABCLIA [id number] [place] [address] Prot SerPl-mCncon 08-18-2022 Protein [Mass/Vol] 6.9 g/dL Normal 6.3-8.0 [facility] Comment on above: Order Comment: Speci men Type: BLOOD SPECIMENOrdering Facility: [facility] Address: [address] [place] [address] Performed By: #### 1 952-1, 1987-5, 2885-2, 2132-9 ####[facility] LABCLIA [id number] [place] [address] [place] Urate SerPl-mCncon Urate [Mass/Vol] 3.8 mg/dL Normal 2.5-6.6 [facility] Comment on above: Order Comment: Speci men Type: BLOOD SPECIMENOrdering Facility: [facility] Address: [address] Performed By: #### 2 532-0, 2777-1, 3084-1, 04457-8 ####[facility] LABCLIA [id number] [place] [address] Vit B12 SerPl-mCncon 023 Cobalamin (Vitamin B12) [Mass/Vol] 325 pg/mL Normal 232-1245 [facility] Comment on above: Order Comment: Speci men Type: BLOOD SPECIMENOrdering Facility: [facility] Address: [address] [place] [address] Performed By: #### 1 952-1, 1987-5, 2885-2, 2131- ####[facility] LABCLIA [id number] [address] [address] [place] CNPNon 07-28-2022 CNPN Normal [facility] CNPNon 07-24-2022 CNPN Normal [facility] MRI KNEE RT WO CONon 022 MRI [...] MADELAINE GOMEZ Date: 2022-04-01 08:24 Normal [facility] PNEUMOCOCCAL IGG ABS, 23 SER OTYPESon 03-21-2022 Pneumococcal Interpretation See Note [facility] S. pneumoniae 1 IgG (S) [Mass/Vol] 0.27 ug/mL [facility] S. pneumoniae 12 IgG (S) [Mass/Vol] 0.08 ug/mL [facility] S. pneumoniae 14 IgG (S) [Mass/Vol] 0.19 ug/mL [facility] S. pneumoniae 17 IgG (S) [Mass/Vol] 1.72 ug/mL [facility] S. pneumoniae 19 IgG (S) [Mass/Vol] 1.52 ug/mL [facility] S. pneumoniae 2 IgG (S) [Mass/Vol] 0.44 ug/mL [facility] S. pneumoniae 20 IgG (S) [Mass/Vol] 1.53 ug/mL [facility] S. pneumoniae 22 IgG (S) [Mass/Vol] 0.99 ug/mL [facility] S. pneumoniae 23 IgG (S) [Mass/Vol] 0.14 ug/mL [facility] S. pneumoniae 3 IgG (S) [Mass/Vol] 0.36 ug/mL [facility] S. pneumoniae 34 IgG (S) [Mass/Vol] 5.77 ug/mL [facility] S. pneumoniae 4 IgG (S) [Mass/Vol] 0.06 ug/mL [facility] S. pneumoniae 43 IgG (S) [Mass/Vol] 0.93 ug/mL [facility] S. pneumoniae 5 IgG (S) [Mass/Vol] 0.89 ug/mL [facility] S. pneumoniae 8 IgG (S) [Mass/Vol] 0.58 ug/mL [facility] S. pneumoniae 9 IgG (S) [Mass/Vol] 0.4 ug/mL [facility] S. pneumoniae [place] type 15B IgG (S) [Mass/Vol] 8.27 ug/mL [facility] S. pneumoniae [place]e type 18C IgG (S) [Mass/Vol] 0.39 ug/mL [facility] S. pneumoniae [place] type 19A IgG (S) [Mass/Vol] 17.72 ug/mL [facility] S. pneumoniae [place] type 33F IgG (S) [Mass/Vol] 3.04 ug/mL [facility] S. pneumoniae [place] type 6B IgG (S) [Mass/Vol] 0.82 ug/mL [facility] S. pneumoniae [place] type 7F IgG (S) [Mass/Vol] 0.34 ug/mL [facility] S. pneumoniae [place] type 9V IgG (S) [Mass/Vol] 0.78 ug/mL [facility] XR KNEE RT 4V or >on 022 [...] by: KRISTINA GARRETT Date: 2022-03-21 16:47 Normal [facility] DIPHTHER/TETANUS ABon 2021 C. diphtheriae IgG Qn (S) 0.1 IU/mL [facility] C. tetani toxoid IgG IA Qn 1 IU/mL [facility] IGA BLDon 03-18-2022 IgA [Mass/Vol] 182 mg/dL 70 - 400 mg/dL [facility] IGE BLDon 03-18-2022 IgE Qn 12.3 kU/l <114.0 kU/l [facility] IGGon 03-18-2022 IgG [Mass/Vol] 618 mg/dL Low 700 - 1,600 mg/dL [facility] IGMon 03-18-2022 IgM [Mass/Vol] 514 mg/dL High 40 - 230 mg/dL [facility] Immunodeficiency panel FC (B ld)on 03-18-2022 CD3 cells (Bld) [#/Vol] 2841 cells/uL High 958 - 2,388 cells/uL [facility] CD3 cells/100 cells (Bld) 81 % 60 - 89 % [facility] CD3+CD4+ (T4 helper) cells (Bld) [#/Vol] 1621 cells/uL 533 - 1,674 cells/uL [facility] CD3+CD4+ (T4 helper) cells/100 cells (Bld) 46 % 34 - 61 % [facility] CD3+CD4+ (T4 helper) cells/CD3+CD8+ (T8 suppressor cells) cells (Bld) [# ratio] 1.55 % 1.10 - 3.25 [facility] CD3+CD8+ (T8 suppressor cells) cells (Bld) [#/Vol] 1049 cells/uL High 175 - 958 cells/uL [facility] CD3+CD8+ (T8 suppressor cells) cells/100 cells (Bld) 30 % 10 - 41 % [facility] CD3-CD16+CD56+ (Natural killer) cells (Bld) [#/Vol] 193 cells/uL 102 - 565 cells/uL [facility] CD3-CD16+CD56+ (Natural killer) cells/100 cells (Bld) 5 % 5 - 25 % [facility] CD3-CD19+ cells (Bld) [#/Vol] 475 cells/uL 75 - 660 cells/uL [facility] CD3-CD19+ cells/100 cells (Bld) 13 % 5 - 22 % [facility] CBC W Auto Differential pane l (Bld)on 03-17-2022 Basophils (Bld) [#/Vol] 0.07 10*3/uL <0.11 k/uL [facility] Basophils/100 WBC (Bld) 0.6 % [facility] Differential cell count method Nom (Bld) Auto [facility] Eosinophils (Bld) [#/Vol] 0.18 10*3/uL <0.46 k/uL [facility] Eosinophils/100 WBC (Bld) 1.6 % [facility] Erythrocyte distribution width (RBC) [Ratio] 14.6 % 11.5 - 15.0 % [facility] Hematocrit (Bld) [Volume fraction] 40.5 % 36.0 - 46.0 % [facility] Hemoglobin (Bld) [Mass/Vol] 13.0 g/dL 11.5 - 15.5 g/dL [facility] Immature granulocytes (Bld) [#/Vol] 0.06 10*3/uL <0.10 k/uL [facility] Immature granulocytes/100 WBC (Bld) 0.5 % [facility] Lymphocytes (Bld) [#/Vol] 2.97 10*3/uL 1.00 - 4.00 k/uL [facility] Lymphocytes/100 WBC (Bld) 26.9 % [facility] MCH (RBC) [Entitic mass] 28.4 pg 26.0 - 34.0 pg [facility] MCHC (RBC) [Mass/Vol] 32.1 g/dL 30.5 - 36.0 g/dL [facility] MCV (RBC) [Entitic vol] 88.4 fL 80.0 - 100.0 fL [facility] Monocytes (Bld) [#/Vol] 0.79 10*3/uL <0.87 k/uL [facility] Monocytes/100 WBC (Bld) 7.2 % [facility] Neutrophils (Bld) [#/Vol] 6.97 10*3/uL 1.45 - 7.50 k/uL [facility] Neutrophils/100 WBC (Bld) 63.2 % [facility] Nucleated RBC (Bld) [#/Vol] <0.01 k/uL [facility] Nucleated RBC/100 WBC (Bld) [Ratio] 0.0 /100 WBC [facility] Platelet mean volume (Bld) [Entitic vol] 9.9 fL 9.0 - 12.7 fL [facility] Platelets (Bld) [#/Vol] 314 10*3/uL 150 - 400 k/uL [facility] RBC (Bld) [#/Vol] 4.58 10*6/uL 3.90 - 5.2 0 m/uL [facility] WBC (Bld) [#/Vol] 11.04 10*3/uL High 3.70 - 11 .00 k/uL [facility] ECHOCARDIO M/2D COMPLETEon ECHOCARDIO M/2D COMPLETE Patient: JONES HALEY Exam Date: 03/12/2022 : 1980 Gender:F Ordering : DR MADELAINE FERRIS . Admission #: [id number] Family : Order #: [id number] CLICK HERE TO VIEW EXAM ECHOCARDIOGRAM REPORT [...] M.D. on 03/16/2022 at 16:47 Normal [facility] INSULINon 03-11-2022 Insulin 17.8 uIU/mL Normal 2.6-24.9 [facility] Comment on above: Performed By: #### C BC #### [facility] [address] [address] [address] Manda York CBC AUTO DIFFon 03-09-2022 BASO # 0.1 103/ul Normal 0.0-0.1 [facility] Comment on above: Performed By: #### C BC #### [facility] [address] [address] [address] Manda York Basophils/100 WBC (Bld) 0.4 % Normal 0.2-2.0 [facility] Comment on above: Performed By: #### C BC #### [facility] [address] [place] [address] Dr. Manda York EO # 0.2 103/ul Normal 0.0-0.7 [facility] Comment on above: Performed By: #### C BC #### [facility] [address] [place] [address] Dr. Manda York Eosinophils/100 WBC (Bld) 1.2 % Normal 0.9-7.0 [facility] Comment on above: Performed By: #### C BC #### [facility] [address] [place] [address] Dr. Manda York Erythrocyte distribution width (RBC) [Ratio] 14.6 % Normal 11.0-15.0 [facility] Comment on above: Performed By: #### C BC #### [facility] [address] [place] [address] Dr. Manda York Hematocrit (Bld) [Volume fraction] 39.2 % Normal 36.0-48.0 [facility] Comment on above: Performed By: #### C BC #### [facility] [address] [place] [address] Dr. Manda York Hemoglobin (Bld) [Mass/Vol] 12.7 g/dL Normal 12.0-16.0 [facility] Comment on above: Performed By: #### C BC #### [facility] [address] [place] [address] Dr. Manda York IG # 0.06 10e3/ul Critically high 0.00-0.03 [facility] Comment on above: Performed By: #### C BC #### [facility] [address] [place] [address] Dr. Manda York IG % 0.5 % Normal 0.0-0.5 [facility] Comment on above: Performed By: #### C BC #### [facility] [address] [place] [address] Dr. Manda York LYMPH # 3.7 103/ul Normal 1.2-3.8 [facility] Comment on above: Performed By: #### C BC #### [facility] [address] [place] [address] Dr. Manda York Lymphocytes/100 WBC (Bld) 31.0 % Normal 20.5-60.0 [facility] Comment on above: Performed By: #### C BC #### [facility] [address] [place] [address] Dr. Manda York MANUAL DIFF REQ NO Normal [facility] Comment on above: Performed By: #### C BC #### [facility] [address] [place] [address] Dr. Manda York MCH (RBC) [Entitic mass] 28.9 pg Normal 26.7-34.0 [facility] Comment on above: Performed By: #### C BC #### [facility] [address] [place] [address] Dr. Manda York MCHC (RBC) [Mass/Vol] 32.4 g/dL Normal 29.9-35.2 [facility] Comment on above: Performed By: #### C BC #### [facility] [address] [place] [address] Dr. Manda York MCV (RBC) [Entitic vol] 89.1 fL Normal 81.0-99.0 [facility] Comment on above: Performed By: #### C BC #### [facility] [address] [place] [address] Dr. Manda York MONO # 0.7 103/ul Normal 0.3-0.8 [facility] Comment on above: Performed By: #### C BC #### [facility] [address] [place] [address] Dr. Manda York Monocytes/100 WBC (Bld) 5.8 % Normal 1.7-12.0 [facility] Comment on above: Performed By: #### C BC #### [facility] [address] [place] [address] Dr. Manda York NEUT # 7.3 103/ul Critically high 1.4-6.5 [facility] Comment on above: Performed By: #### C BC #### [facility] [address] [place] [address] Dr. Manda York Neutrophils/100 WBC (Bld) 61.1 % Normal 43.0-75.0 [facility] Comment on above: Performed By: #### C BC #### [facility] [address] [place] [address] Dr. Manda York Platelet mean volume (Bld) [Entitic vol] 9.7 fL Normal 9.5-13.5 [facility] Comment on above: Performed By: #### C BC #### [facility] [address] [place] [address] Dr. Manda York PLT 297 103/ul Normal 150-450 [facility] Comment on above: Performed By: #### C BC #### [facility] [address] [place] [address] Dr. Manda York RBC 4.40 106/ul Normal 4.20-5.40 [facility] Comment on above: Performed By: #### C BC #### [facility] [address] [place] [address] Dr. Manda York WBC 12.0 103/ul Critically high 4.0-11.0 [facility] Comment on above: Performed By: #### C BC #### [facility] [address] [place] [address] Dr. Manda York FREE THYROXINE INDEX T7on FTI 3.81 Normal 1.30-4.50 [facility] Comment on above: Performed By: #### U AMIC #### [facility] [address] [place] [address] Dr. Manda York T3U 34.0 % Normal 30.0-39.0 [facility] Comment on above: Performed By: #### U AMIC #### [facility] [address] [place] [address] Dr. Manda York T4 [Mass/Vol] 11.20 ug/dL Normal 4.80-13.90 [facility] Comment on above: Performed By: #### U AMIC #### [facility] [address] [address] [address] Manda York GLYCOHEMOGLOBIN A1Con 2021 ADA RECOMMENDATION SEE BELOW Normal [facility] Comment on above: Result Comment: ADA RECOMMENDED LIMIT 4.0 - 6.0 ADA THERAPEUTIC TARGET < 7.0 ACTION SUGGESTED > 7.0 Performed By: #### S LUIGI MELO #### [facility] [address] [address] [address] Manda York Glucose [Mass/Vol] 117 mg/dL Normal [facility] Comment on above: Performed By: #### S LUIGI MELO #### [facility] [address] [address] [address] Manda York HbA1c (Bld) [Mass fraction] 5.7 % Normal 4.5-6.2 [facility] Comment on above: Performed By: #### S LUIGI MELO #### [facility] [address] [place] [address] Dr. Manda York IRONon 03-09-2022 Iron [Mass/Vol] 61.0 ug/dL Normal 50.0-170.0 [facility] Comment on above: Performed By: #### C BC #### [facility] [address] [place] [address] Dr. Manda York LIPID PROFILEon 03-09-2022 CHOL-HDL RATIO NORM SEE BELOW Normal [facility] Comment on above: Result Comment: 3.3 - 4.4 LOW RISK 4.4 - 7.1 AVERAGE RISK 7.1 - 11.0 MODERATE RISK >11.0 HIGH RISK Performed By: #### U AMIC #### [facility] [address] [place] [address] Dr. Manda York Cholesterol [Mass/Vol] 260 mg/dL Critically high <=200 [facility] Comment on above: Performed By: #### U AMIC #### [facility] [address] [place] [address] Dr. Manda York Cholesterol in HDL [Mass/Vol] 38 mg/dL Critically low 40-60 [facility] Comment on above: Performed By: #### U AMIC #### [facility] [address] [address] [address] Manda York Cholesterol in LDL [Mass/Vol] 170.8 mg/dL Normal [facility] Comment on above: Performed By: #### U AMIC #### [facility] [address] [address] [address] Manda York Cholesterol.total/Ch olesterol in HDL [Mass ratio] 6.8 {ratio} Normal [facility] Comment on above: Performed By: #### U AMIC #### [facility] [address] [address] [address] Manda York HDL NORMAL > or = 60 mg/dl - LO W CARDIOVASCULAR RISK <40 mg/dl - HIGH CARDIOVASCULAR RISK Normal [facility] Comment on above: Performed By: #### U AMIC #### [facility] [address] [address] [address] Manda York LDL CALC NORMAL SEE BELOW Normal [facility] Comment on above: Result Comment: <100 mg/dl OPTIMAL 100 - 129 mg/dl NEAR OR ABOVE OPTIMAL 130 - 159 mg/dl BORDERLINE HIGH 160 - 189 mg/dl HIGH >190 mg/dl VERY HIGH Performed By: #### U AMIC #### [facility] [address] [address] [address] Manda York Triglyceride [Mass/Vol] 256 mg/dL Critically high <=150 [facility] Comment on above: Performed By: #### U AMIC #### [facility] [address] [address] [address] Manda York VLDL CALC 51.2 mg/dL Normal [facility] Comment on above: Performed By: #### U AMIC #### [facility] [address] [address] [address] Manda York PROF 14(COMP METB)on 022 Albumin [Mass/Vol] 3.8 g/dL Normal 3.4-5.0 [facility] Comment on above: Performed By: #### U AMIC #### [facility] [address] [place] [address] Dr. Manda York Albumin/Globulin [Mass ratio] 1.0 {ratio} Normal [facility] Comment on above: Performed By: #### U AMIC #### [facility] [address] [address] [address] Manda York ALP [Catalytic activity/Vol] 66 U/L Normal 46-116 [facility] Comment on above: Performed By: #### U AMIC #### [facility] [address] [address] [address] Manda York ALT [Catalytic activity/Vol] 27 U/L Normal 14-59 [facility] Comment on above: Performed By: #### U AMIC #### [facility] [address] [address] [address] Manda York Anion gap [Moles/Vol] 11.8 mmol/L Normal [facility] Comment on above: Performed By: #### U AMIC #### [facility] [address] [address] [address] Manda York AST [Catalytic activity/Vol] 9 U/L Critically low 15-37 [facility] Comment on above: Performed By: #### U AMIC #### [facility] [address] [address] [address] Manda York Bilirubin [Mass/Vol] 0.2 mg/dL Normal 0.2-1.0 [facility] Comment on above: Performed By: #### U AMIC #### [facility] [address] [address] [address] Manda York Calcium [Mass/Vol] 9.1 mg/dL Normal 8.5-10.1 [facility] Comment on above: Performed By: #### U AMIC #### [facility] [address] [address] [address] Manda York Chloride [Moles/Vol] 101 mmol/L Normal 98-107 [facility] Comment on above: Performed By: #### U AMIC #### [facility] [address] [address] [address] Manda York CO2 [Moles/Vol] 26.1 mmol/L Normal 21.0-32.0 [facility] Comment on above: Performed By: #### U AMIC #### [facility] [address] [address] [address] Manda York Creatinine [Mass/Vol] 0.80 mg/dL Normal 0.55-1.02 [facility] Comment on above: Performed By: #### U AMIC #### [facility] [address] [address] [address] Manda York EGFR-AF SWEDISH >60 Normal >=60 [facility] Comment on above: Performed By: #### U AMIC #### [facility] [address] [address] [address] Manda York EGFR-NON AF SWEDISH >60 Normal >=60 [facility] Comment on above: Performed By: #### U AMIC #### [facility] [address] [place] [address] Dr. Manda York Globulin (S) [Mass/Vol] 3.8 g/dL Normal [facility] Comment on above: Performed By: #### U AMIC #### [facility] [address] [place] [address] Dr. Manda York Glucose [Mass/Vol] 93 mg/dL Normal 74-106 [facility] Comment on above: Performed By: #### U AMIC #### [facility] [address] [place] [address] Dr. Manda York Potassium [Moles/Vol] 3.9 mmol/L Normal 3.5-5.1 [facility] Comment on above: Performed By: #### U AMIC #### [facility] [address] [place] [address] Dr. Manda York Protein [Mass/Vol] 7.6 g/dL Normal 6.4-8.2 [facility] Comment on above: Performed By: #### U AMIC #### [facility] [address] [address] [address] Manda York Sodium [Moles/Vol] 135 mmol/L Critically low 136-145 [facility] Comment on above: Performed By: #### U AMIC #### [facility] [address] [address] [address] Manda York Urea nitrogen [Mass/Vol] 10.0 mg/dL Normal 7.0-18.0 [facility] Comment on above: Performed By: #### U AMIC #### [facility] [address] [address] [address] Manda York Urea nitrogen/Creatinine [Mass ratio] 12.5 mg/mg Normal [facility] Comment on above: Performed By: #### U AMIC #### [facility] [address] [address] [address] Manda York TSHon 03-09-2022 TSH 0.610 uIU/mL Normal 0.358-3.740 [facility] Comment on above: Performed By: #### U AMIC #### [facility] [address] [address] [address] Manda York B2 MICROGLOBULIN [facility] 022 [id number] [Mass/Vol] 1.8 ug/mL 0.8 - 2.4 mg/L [facility] FERRITIN BLDon 03-05-2022 Ferritin [Mass/Vol] 33.2 ng/mL 14.7 - 2 05.1 ng/mL [facility] FOLATE SERUMon 03-05-2022 Folate [Mass/Vol] 6.6 ng/mL >4.7 ng/mL [facility] Iron and Iron binding capaci ty panelon 03-05-2022 Iron [Mass/Vol] 49 ug/dL 41 - 186 ug/dL [facility] Iron binding capacity [Mass/Vol] 392 ug/dL High 232 - 386 ug/dL [facility] Iron/TIBC [Molar ratio] 12.5 % Low 15.0 - 57.0 % [facility] CBC W Auto Differential pane l (Bld)on 03-04-2022 Basophils (Bld) [#/Vol] 0.07 10*3/uL <0.11 k/uL [facility] Basophils/100 WBC (Bld) 0.6 % [facility] Differential cell count method Nom (Bld) Auto [facility] Eosinophils (Bld) [#/Vol] 0.19 10*3/uL <0.46 k/uL [facility] Eosinophils/100 WBC (Bld) 1.7 % [facility] Erythrocyte distribution width (RBC) [Ratio] 14.7 % 11.5 - 15.0 % [facility] Hematocrit (Bld) [Volume fraction] 40.0 % 36.0 - 46.0 % [facility] Hemoglobin (Bld) [Mass/Vol] 13.0 g/dL 11.5 - 15.5 g/dL [facility] Immature granulocytes (Bld) [#/Vol] 0.07 10*3/uL <0.10 k/uL [facility] Immature granulocytes/100 WBC (Bld) 0.6 % [facility] Lymphocytes (Bld) [#/Vol] 3.31 10*3/uL 1.00 - 4.00 k/uL [facility] Lymphocytes/100 WBC (Bld) 30.2 % [facility] MCH (RBC) [Entitic mass] 28.9 pg 26.0 - 34.0 pg [facility] MCHC (RBC) [Mass/Vol] 32.5 g/dL 30.5 - 36.0 g/dL [facility] MCV (RBC) [Entitic vol] 88.9 fL 80.0 - 100.0 fL [facility] Monocytes (Bld) [#/Vol] 0.70 10*3/uL <0.87 k/uL [facility] Monocytes/100 WBC (Bld) 6.4 % [facility] Neutrophils (Bld) [#/Vol] 6.63 10*3/uL 1.45 - 7.50 k/uL [facility] Neutrophils/100 WBC (Bld) 60.5 % [facility] Nucleated RBC (Bld) [#/Vol] <0.01 k/uL [facility] Nucleated RBC/100 WBC (Bld) [Ratio] 0.0 /100 WBC [facility] Platelet mean volume (Bld) [Entitic vol] 9.6 fL 9.0 - 12.7 fL [facility] Platelets (Bld) [#/Vol] 355 10*3/uL 150 - 400 k/uL [facility] RBC (Bld) [#/Vol] 4.50 10*6/uL 3.90 - 5.2 0 m/uL [facility] WBC (Bld) [#/Vol] 10.97 10*3/uL 3.70 - 11 .00 k/uL [facility] Calcium.ionized [Moles/Vol]o n 03-04-2022 Calcium.ionized (Bld) [Mass/Vol] 1.26 mmol/L 1.08 - 1.30 mmol/L [facility] Calcium.ionized adjusted to pH 7.4 (Bld) [Moles/Vol] 1.25 mmol/L 1.08 - 1.30 mmol/L [facility] Comprehensive metabolic 2000 panelon 03-04-2022 Albumin [Mass/Vol] 4.3 g/dL 3.9 - 4.9 g/dL [facility] ALP [Catalytic activity/Vol] 70 U/L 34 - 123 U/L [facility] ALT [Catalytic activity/Vol] 26 U/L 7 - 38 U/L [facility] Anion gap [Moles/Vol] 7 mmol/L Low 9 - 18 mmol/L [facility] AST [Catalytic activity/Vol] 12 U/L Low 13 - 35 U/L [facility] Bilirubin [Mass/Vol] 0.2 mg/dL 0.2 - 1 .3 mg/dL [facility] Calcium [Mass/Vol] 9.3 mg/dL 8.5 - 10. 2 mg/dL [facility] Chloride [Moles/Vol] 103 mmol/L 97 - 10 5 mmol/L [facility] CO2 [Moles/Vol] 28 mmol/L 22 - 30 mmol/L [facility] Creatinine [Mass/Vol] 0.69 mg/dL 0.58 - 0.96 mg/dL [facility] Estimated Glomerular Filtration Rate 112 mL/min/1.73m >=60 mL/min/1.73m [facility] Glucose [Mass/Vol] 100 mg/dL High 74 - 99 mg/dL [facility] Potassium [Moles/Vol] 3.9 mmol/L 3.7 - 5.1 mmol/L [facility] Protein [Mass/Vol] 7.0 g/dL 6.3 - 8.0 g/dL [facility] Sodium [Moles/Vol] 138 mmol/L 136 - 144 mmol/L [facility] Urea nitrogen [Mass/Vol] 12 mg/dL 7 - 21 mg/dL [facility] LD LACTATE DEHYDROon 022 LDH [Catalytic activity/Vol] 135 U/L 135 - 214 U/L [facility] PHOSPHORUS INORGANICon 03-04 Phosphate [Mass/Vol] 3.2 mg/dL 2.7 - 4 .8 mg/dL [facility] URIC ACID BLOODon 03-04-2022 Urate [Mass/Vol] 5.2 mg/dL 2.5 - 6.6 mg/dL [facility] IMMUNOGLOBULINS IGA/IGM/IGG/ IGE QUANTITAon 02-20-2022 Immunoglobulin A, Qn, Serum 189 mg/dL Normal 87-352 [facility] Comment on above: Result Comment: Perf ormed at: CB Performed By: #### Tye MELO THYLC #### [facility] [address] [address] [address] Manda York Immunoglobulin E, Total 10 IU/mL Normal 6-495 [facility] Comment on above: Result Comment: Perf ormed at: BN Performed By: #### Tye MELO THYLC #### [facility] [address] [address] [address] Manda York Immunoglobulin G, Qn, Serum 598 mg/dL Normal 586-1602 [facility] Comment on above: Result Comment: Perf ormed at: CB Performed By: #### LEANN PATRICKC #### [facility] [address] [address] [address] Manda York Immunoglobulin M, Qn, Serum 493 mg/dL Critically high 26-217 [facility] Comment on above: Result Comment: Perf ormed at: CB Performed By: #### Tye MELO THYLC #### [facility] [address] [address] [address] Manda York CHRISTIAN by IFAon 02-19-2022 Antinuclear Antibodies, IFA Negative Normal [facility] Comment on above: Result Comment: Nega tive <1:80 Borderline 1:80 Positive >1:80 ICAP nomenclature: AC-0 For more information about Hep-2 cell patterns use ANApatterns.org, the official website for the International Consensus on Antinuclear Antibody (CHRISTIAN) Patterns (ICAP). Performed By: #### LEANN PATRICKC #### [facility] [address] [address] [address] Manda York THYROID ANTIBODIESon Thyroglobulin Antibody <1.0 Normal 0.0-0.9 [facility] Comment on above: Result Comment: Thyr oglobulin Antibody measured by Radiojar Methodology Performed By: #### F T4 #### [facility] [address] [place] [address] Dr. Manda York Thyroid Peroxidase (TPO) Ab <8 Normal 0-34 [facility] Comment on above: Performed By: #### F T4 #### [facility] [address] [place] [address] Dr. Manda York PROTEIN ELECTROPHERESISon Albumin [Mass/Vol] 3.2 g/dL Normal 2.9-4.4 [facility] Comment on above: Performed By: #### F T4 #### [facility] [address] [place] [address] Dr. Manda York Albumin/Globulin [Mass ratio] 1.0 {ratio} Normal 0.7-1.7 [facility] Comment on above: Performed By: #### F T4 #### [facility] [address] [place] [address] Dr. Manda York Znsua-9-Pjrnkwwc 0.2 g/dL Normal 0.0-0.4 [facility] Comment on above: Performed By: #### F T4 #### [facility] [address] [place] [address] Dr. Manda York Uaowa-9-Epgqbaxc 0.9 g/dL Normal 0.4-1.0 [facility] Comment on above: Performed By: #### F T4 #### [facility] [address] [place] [address] Dr. Manda York Beta Globulin 1.2 g/dL Normal 0.7-1.3 [facility] Comment on above: Performed By: #### F T4 #### [facility] [address] [place] [address] Dr. Manda York Gamma Globulin 0.9 g/dL Normal 0.4-1.8 [facility] Comment on above: Performed By: #### F T4 #### [facility] [address] [place] [address] Dr. Manda York Globulin (S) [Mass/Vol] 3.2 g/dL Normal 2.2-3.9 [facility] Comment on above: Performed By: #### F T4 #### [facility] [address] [place] [address] Dr. Manda York M-Jose De Jesus Not Observed Normal Not Observed [facility] Comment on above: Performed By: #### F T4 #### [facility] [address] [place] [address] Dr. Manda York PDF . Normal [facility] Comment on above: Performed By: #### F T4 #### [facility] [address] [place] [address] Dr. Manda York Please note: Comment Normal [facility] Comment on above: Result Comment: Prot ein electrophoresis scan will follow via computer, mail, or radio engineer delivery. Performed By: #### F T4 #### [facility] [address] [place] [address] Dr. Manda York Protein [Mass/Vol] 6.4 g/dL Normal 6.0-8.5 [facility] Comment on above: Performed By: #### F T4 #### [facility] [address] [place] [address] Dr. Manda York SLE PROFILE Aon 02-16-2022 Anti-DNA (DS) Ab Qn 9 IU/mL Normal 0-9 [facility] Comment on above: Result Comment: Nega tive <5 Equivocal 5 - 9 Positive >9 Performed By: #### S LUIGI MELO #### [facility] [address] [place] [address] Dr. Manda York Antichromatin Antibodies <0.2 Normal 0.0-0.9 [facility] Comment on above: Performed By: #### S LUIGI MELO #### [facility] [address] [place] [address] Dr. Manda York RA Latex Turbid. <10.0 Normal <14.0 [facility] Comment on above: Performed By: #### S LEANN MELOC #### [facility] [address] [place] [address] Dr. Manda York TAX INTERN Antibodies <0.2 Normal 0.0-0.9 [facility] Comment on above: Performed By: #### LEANN PATRICKC #### [facility] [address] [place] [address] Dr. Manda York Sjogryaniv'tye Anti-SS-A <0.2 Normal 0.0-0.9 [facility] Comment on above: Performed By: #### S LUIGI MELO #### [facility] [address] [place] [address] Dr. Manda Solorzanoogryaniv'tye Anti-SS-B <0.2 Normal 0.0-0.9 [facility] Comment on above: Performed By: #### LUIGI PATRICK #### [facility] [address] [place] [address] Dr. Manda York Schneider Antibodies <0.2 Normal 0.0-0.9 [facility] Comment on above: Performed By: #### LUIGI PATRICK #### [facility] [address] [place] [address] Dr. Manda York ANTISTREPTOLYSIN O AB (ASO)o n 02-15-2022 Antistreptolysin O Ab 49.6 IU/mL Normal 0.0-200.0 [facility] Comment on above: Performed By: #### A SOAB #### [facility] [address] [place] [address] Dr. Manda York MICROALBUMIN URINEon 022 Albumin, Urine <3.0 Normal Not Estab. [facility] Comment on above: Result Comment: Ve rified by repeat analysis Performed By: #### C BC #### [facility] [address] [place] [address] Dr. Manda York T4, T3U, FTI LABCORPon 02-15 Free Thyroxine Index 2.6 Normal 1.2-4.9 [facility] Comment on above: Performed By: #### S LUIGI MELO #### [facility] [address] [place] [address] Dr. Manda York T3 Uptake 26 % Normal 24-39 [facility] Comment on above: Performed By: #### S LEANN MELOC #### [facility] [address] [place] [address] Dr. Manda York T4 [Mass/Vol] 9.9 ug/dL Normal 4.5-12.0 [facility] Comment on above: Performed By: #### S LEANN MELO #### [facility] [address] [place] [address] Dr. Manda York CBC AUTO DIFFon 02-14-2022 BASO # 0.1 103/ul Normal 0.0-0.1 [facility] Comment on above: Performed By: #### U AMIC #### [facility] [address] [place] [address] Dr. Manda York Basophils/100 WBC (Bld) 0.6 % Normal 0.2-2.0 [facility] Comment on above: Performed By: #### U AMIC #### [facility] [address] [place] [address] Dr. Manda York EO # 0.3 103/ul Normal 0.0-0.7 [facility] Comment on above: Performed By: #### U AMIC #### [facility] [address] [place] [address] Dr. Manda York Eosinophils/100 WBC (Bld) 3.4 % Normal 0.9-7.0 [facility] Comment on above: Performed By: #### U AMIC #### [facility] [address] [place] [address] Dr. Manda York Erythrocyte distribution width (RBC) [Ratio] 14.6 % Normal 11.0-15.0 [facility] Comment on above: Performed By: #### U AMIC #### [facility] [address] [place] [address] Dr. Manda York Hematocrit (Bld) [Volume fraction] 39.1 % Normal 36.0-48.0 [facility] Comment on above: Performed By: #### U AMIC #### [facility] [address] [address] [address] Manda York Hemoglobin (Bld) [Mass/Vol] 12.4 g/dL Normal 12.0-16.0 [facility] Comment on above: Performed By: #### U AMIC #### [facility] [address] [address] [address] Manda York IG # 0.03 10e3/ul Normal 0.00-0.03 [facility] Comment on above: Performed By: #### U AMIC #### [facility] [address] [address] [address] Manda York IG % 0.3 % Normal 0.0-0.5 [facility] Comment on above: Performed By: #### U AMIC #### [facility] [address] [address] [address] Manda York LYMPH # 3.6 103/ul Normal 1.2-3.8 [facility] Comment on above: Performed By: #### U AMIC #### [facility] [address] [address] [address] Manda York Lymphocytes/100 WBC (Bld) 39.9 % Normal 20.5-60.0 [facility] Comment on above: Performed By: #### U AMIC #### [facility] [address] [address] [address] Manda York MANUAL DIFF REQ NO Normal [facility] Comment on above: Performed By: #### U AMIC #### [facility] [address] [address] [address] Manda York MCH (RBC) [Entitic mass] 28.4 pg Normal 26.7-34.0 [facility] Comment on above: Performed By: #### U AMIC #### [facility] [address] [address] [address] Manda York MCHC (RBC) [Mass/Vol] 31.7 g/dL Normal 29.9-35.2 [facility] Comment on above: Performed By: #### U AMIC #### [facility] [address] [address] [address] Manda York MCV (RBC) [Entitic vol] 89.7 fL Normal 81.0-99.0 [facility] Comment on above: Performed By: #### U AMIC #### [facility] [address] [address] [address] Manda York MONO # 0.7 103/ul Normal 0.3-0.8 [facility] Comment on above: Performed By: #### U AMIC #### [facility] [address] [address] [address] Manda York Monocytes/100 WBC (Bld) 7.3 % Normal 1.7-12.0 [facility] Comment on above: Performed By: #### U AMIC #### [facility] [address] [place] [address] Dr. Manda York NEUT # 4.4 103/ul Normal 1.4-6.5 [facility] Comment on above: Performed By: #### U AMIC #### [facility] [address] [place] [address] Dr. Manda York Neutrophils/100 WBC (Bld) 48.5 % Normal 43.0-75.0 [facility] Comment on above: Performed By: #### U AMIC #### [facility] [address] [place] [address] Dr. Manda York Platelet mean volume (Bld) [Entitic vol] 10.1 fL Normal 9.5-13.5 [facility] Comment on above: Performed By: #### U AMIC #### [facility] [address] [place] [address] Dr. Manda York PLT 310 103/ul Normal 150-450 [facility] Comment on above: Performed By: #### U AMIC #### [facility] [address] [address] [address] Manda York RBC 4.36 106/ul Normal 4.20-5.40 [facility] Comment on above: Performed By: #### U AMIC #### [facility] [address] [place] [address] Dr. Manda York WBC 9.0 103/ul Normal 4.0-11.0 [facility] Comment on above: Performed By: #### U AMIC #### [facility] [address] [place] [address] Dr. Manda York CRPon 02-14-2022 CRP [Mass/Vol] mg/L Normal <=1.0 [facility] Comment on above: Performed By: #### U AMIC #### [facility] [address] [place] [address] Dr. Manda York CULTURE URINEon 02-14-2022 CULTURE URINE Culture Observations : LIGHT GROWTH OF MIXED GENITAL AMBER. NO POTENTIAL PATHOGENS SEEN. Normal [facility] Comment on above: Performed By: #### C BC #### [facility] [address] [place] [address] Dr. Manda York PROF 14(COMP METB)on 022 Albumin [Mass/Vol] 3.5 g/dL Normal 3.4-5.0 [facility] Comment on above: Performed By: #### U AMIC #### [facility] [address] [place] [address] Dr. Manda York Albumin/Globulin [Mass ratio] 1.0 {ratio} Normal [facility] Comment on above: Performed By: #### U AMIC #### [facility] [address] [place] [address] Dr. Manda York ALP [Catalytic activity/Vol] 71 U/L Normal 46-116 [facility] Comment on above: Performed By: #### U AMIC #### [facility] [address] [place] [address] Dr. Manda York ALT [Catalytic activity/Vol] 46 U/L Normal 14-59 [facility] Comment on above: Performed By: #### U AMIC #### [facility] [address] [place] [address] Dr. Manda York Anion gap [Moles/Vol] 11.6 mmol/L Normal [facility] Comment on above: Performed By: #### U AMIC #### [facility] [address] [address] [address] Manda York AST [Catalytic activity/Vol] 15 U/L Normal 15-37 [facility] Comment on above: Performed By: #### U AMIC #### [facility] [address] [address] [address] Manda York Bilirubin [Mass/Vol] 0.2 mg/dL Normal 0.2-1.0 [facility] Comment on above: Performed By: #### U AMIC #### [facility] [address] [address] [address] Manda York Calcium [Mass/Vol] 8.7 mg/dL Normal 8.5-10.1 [facility] Comment on above: Performed By: #### U AMIC #### [facility] [address] [address] [address] Manda York Chloride [Moles/Vol] 104 mmol/L Normal 98-107 [facility] Comment on above: Performed By: #### U AMIC #### [facility] [address] [address] [address] Manda Yrok CO2 [Moles/Vol] 25.1 mmol/L Normal 21.0-32.0 [facility] Comment on above: Performed By: #### U AMIC #### [facility] [facility] [address] [address] [address] Manda York Creatinine [Mass/Vol] 0.80 mg/dL Normal 0.55-1.02 [facility] Comment on above: Performed By: #### U AMIC #### [facility] [address] [address] [address] Manda York EGFR-AF SWEDISH >60 Normal >=60 [facility] Comment on above: Performed By: #### U AMIC #### [facility] [address] [address] [address] Manda York EGFR-NON AF SWEDISH >60 Normal >=60 [facility] Comment on above: Performed By: #### U AMIC #### [facility] [address] [address] [address] Manda York Globulin (S) [Mass/Vol] 3.6 g/dL Normal [facility] Comment on above: Performed By: #### U AMIC #### [facility] [address] [address] [address] Manda York Glucose [Mass/Vol] 92 mg/dL Normal 74-106 [facility] Comment on above: Performed By: #### U AMIC #### [facility] [address] [address] [address] Manda York Potassium [Moles/Vol] 3.7 mmol/L Normal 3.5-5.1 [facility] Comment on above: Performed By: #### U AMIC #### [facility] [address] [address] [address] Manda York Protein [Mass/Vol] 7.1 g/dL Normal 6.4-8.2 [facility] Comment on above: Performed By: #### U AMIC #### [facility] [address] [address] [address] Manda York Sodium [Moles/Vol] 137 mmol/L Normal 136-145 [facility] Comment on above: Performed By: #### U AMIC #### [facility] [address] [address] [address] Manda York Urea nitrogen [Mass/Vol] 17.0 mg/dL Normal 7.0-18.0 [facility] Comment on above: Performed By: #### U AMIC #### [facility] [address] [address] [address] Manda York Urea nitrogen/Creatinine [Mass ratio] 21.2 mg/mg Normal [facility] Comment on above: Performed By: #### U AMIC #### [facility] [address] [address] [address] Manda York SED RATE [facility] 2021 SED RATE 40 mm/hr Critically high <=20 [facility] Comment on above: Performed By: #### S EDR #### [facility] [address] [address] [address] Manda York TSHon 02-14-2022 TSH 1.155 uIU/mL Normal 0.358-3.740 [facility] Comment on above: Performed By: #### U AMIC #### [facility] [address] [address] [address] Manda York UA RANDOM W/MICROSCOPICon BACTERIA NONE SEEN Normal NONE SEEN [facility] Comment on above: Performed By: #### U AMIC #### [facility] [address] [place] [address] Dr. Manda York Bilirubin Ql (U) Negative Normal NEGATIVE [facility] Comment on above: Performed By: #### U AMIC #### [facility] [address] [place] [address] Dr. Manda York CAST NONE SEEN Normal NONE SEEN [facility] Comment on above: Performed By: #### U AMIC #### [facility] [address] [place] [address] Dr. Manda York Clarity (U) CLEAR Normal CLEAR [facility] Comment on above: Performed By: #### U AMIC #### [facility] [address] [place] [address] Dr. Manda York Color (U) LT. YELLOW Normal YELLOW [facility] Comment on above: Performed By: #### U AMIC #### [facility] [address] [place] [address] Dr. Manda York Crystals LM Nom (Urine sed) NONE SEEN Normal NONE SEEN [facility] Comment on above: Performed By: #### U AMIC #### [facility] [address] [place] [address] Dr. Manda York Epithelial cells LM Ql (Urine sed) RARE Normal NONE SEEN /RARE [facility] Comment on above: Performed By: #### U AMIC #### [facility] [address] [place] [address] Dr. Manda York Glucose Ql (U) Negative Normal NEGATIVE [facility] Comment on above: Performed By: #### U AMIC #### [facility] [address] [address] [address] Manda York Hemoglobin Ql (U) Negative Normal NEGATIVE [facility] Comment on above: Performed By: #### U AMIC #### [facility] [address] [address] [address] Manda York Ketones Ql (U) Negative Normal NEGATIVE [facility] Comment on above: Performed By: #### U AMIC #### [facility] [address] [address] [address] Manda York LEUKOCYTES Negative Normal NEGATIVE [facility] Comment on above: Performed By: #### U AMIC #### [facility] [address] [place] [address] Dr. Manda York MUCOUS NONE SEEN Normal NONE SEEN [facility] Comment on above: Performed By: #### U AMIC #### [facility] [address] [place] [address] Dr. Manda York Nitrite Ql (U) Negative Normal NEGATIVE [facility] Comment on above: Performed By: #### U AMIC #### [facility] [address] [place] [address] Dr. Manda York pH (U) 6.0 [pH] Normal 5-9 [facility] Comment on above: Performed By: #### U AMIC #### [facility] [address] [place] [address] Dr. Manda York RBC NONE SEEN Abnormal 0-2 [facility] Comment on above: Performed By: #### U AMIC #### [facility] [address] [place] [address] Dr. Manda York SPEC GRAVITY 1.005 Normal 1.005-<=1.02 5 [facility] Comment on above: Performed By: #### U AMIC #### [facility] [address] [place] [address] Dr. Manda York UA PROTEIN Negative Normal NEGATIVE/ TRACE [facility] Comment on above: Performed By: #### U AMIC #### [facility] [address] [place] [address] Dr. Manda York Urobilinogen Qn (U) 0.2 {Carmella'U}/dL Normal 0.2 - 1. 0 [facility] Comment on above: Performed By: #### U AMIC #### [facility] [address] [place] [address] Dr. Manda York WBC NONE SEEN Normal NONE SEEN [facility] Comment on above: Performed By: #### U AMIC #### [facility] [address] [place] [address] Dr. Manda York URIC ACID SERUMon 02-14-2022 Urate [Mass/Vol] 4.2 mg/dL Normal 2.6-6.0 [facility] Comment on above: Performed By: #### U AMIC #### [facility] [address] [place] [address] Dr. Manda York VITAMIN D 25 OHon 02-14-2022 VIT D 25-OH 22.4 ng/mL Normal [facility] Comment on above: Performed By: #### F T4 #### [facility] [address] [place] [address] Dr. Manda York VIT D RANGES SEE BELOW Normal [facility] Comment on above: Result Comment: <20 ng/mL Vit D deficient 20 - <30 ng/mL Vit D insufficient 30 - 100 ng/mL Vit D sufficient >100 ng/mL Potential Toxicity Performed By: #### F T4 #### [facility] [address] [place] [address] Dr. Manda York METANEPHRINES FRAC. QNT 24 H R URINEon 11-28-2021 Metanephrine, U,24hr Comment Normal 36-209 [facility] Comment on above: Result Comment: No t otal volume submitted. Unable to calculate 24 hour result. Performed By: #### S LUIGI MELO #### [facility] [address] [place] [address] Dr. Manda York Metanephrine, Ur 57 ug/L Normal Undefined [facility] Comment on above: Performed By: #### S LEANN MELOC #### [facility] [address] [place] [address] Dr. Manda York Normetanephr.,U,24h Comment Normal 131-612 [facility] Comment on above: Result Comment: No t otal volume submitted. Unable to calculate 24 hour result. Performed By: #### LEANN PATRICK #### [facility] [address] [place] [address] Dr. Manda York Normetanephrine, Ur 116 ug/L Normal Undefined [facility] Comment on above: Performed By: #### LEANN PATRICK #### [facility] [address] [place] [address] Dr. Manda York METANEPHRINES PLASMA FREEon 11-27-2021 Metanephrine, Pl 22.1 pg/mL Normal 0.0-88.0 [facility] Comment on above: Performed By: #### LEANN PATRICK #### [facility] [address] [place] [address] Dr. Manda York Normetanephrine, Pl 50.7 pg/mL Normal 0.0-218.9 [facility] Comment on above: Performed By: #### LEANN PATRICK #### [facility] [address] [place] [address] Dr. Manda York CMV PLASMA PCRon 11-19-2021 CMV Quant DNA PCR (Plasma) Negative Normal Negative [facility] Comment on above: Result Comment: No C MV DNA detected. The quantitative range of this assay is 200 to 1 million IU/mL. Performed By: #### LEANN PATRICK #### [facility] [address] [place] [address] Dr. Manda York log10 CMV Qn DNA Pl UPTCAL Normal [facility] Comment on above: Result Comment: Unab le to calculate result since non-numeric result obtained for component test. Performed By: #### LEANN PATRICKC #### [facility] [address] [place] [address] Dr. Manda York CMV AB IGMon 11-18-2021 Cytomegalovirus (CMV) Ab, IgM 43.2 AU/mL Critically high 0.0-29.9 [facility] Comment on above: Result Comment: Nega tive <30.0 Equivocal 30.0 - 34.9 Positive >34.9 A positive result is generally indicative of acute infection, reactivation or persistent IgM production. Performed By: #### S LUIGI MELO #### [facility] [address] [place] [address] Dr. Manda York CMV AB, IGGon 11-18-2021 Cytomegalovirus (CMV) Ab, IgG >10.00 Critically high 0.00-0.59 [facility] Comment on above: Result Comment: Nega tive <0.60 Equivocal 0.60 - 0.69 Positive >0.69 Performed By: #### C MVIGG #### [facility] [address] [place] [address] Dr. Manda York CBC AUTO DIFFon 11-17-2021 BASO # 0.1 103/ul Normal 0.0-0.1 [facility] Comment on above: Performed By: #### C BC #### [facility] [address] [place] [address] Dr. Manda York Basophils/100 WBC (Bld) 0.6 % Normal 0.2-2.0 [facility] Comment on above: Performed By: #### C BC #### [facility] [address] [place] [address] Dr. Manda York EO # 0.2 103/ul Normal 0.0-0.7 [facility] Comment on above: Performed By: #### C BC #### [facility] [address] [place] [address] Dr. Manda York Eosinophils/100 WBC (Bld) 2.3 % Normal 0.9-7.0 [facility] Comment on above: Performed By: #### C BC #### [facility] [address] [place] [address] Dr. Manda York Erythrocyte distribution width (RBC) [Ratio] 14.2 % Normal 11.0-15.0 [facility] Comment on above: Performed By: #### C BC #### [facility] [address] [place] [address] Dr. Manda York Hematocrit (Bld) [Volume fraction] 40.2 % Normal 36.0-48.0 [facility] Comment on above: Performed By: #### C BC #### [facility] [address] [place] [address] Dr. Manda York Hemoglobin (Bld) [Mass/Vol] 12.8 g/dL Normal 12.0-16.0 [facility] Comment on above: Performed By: #### C BC #### [facility] [address] [place] [address] Dr. Manda York IG # 0.02 10e3/ul Normal 0.00-0.03 [facility] Comment on above: Performed By: #### C BC #### [facility] [address] [place] [address] Dr. Manda York IG % 0.2 % Normal 0.0-0.5 [facility] Comment on above: Performed By: #### C BC #### [facility] [address] [place] [address] Dr. Manda York LYMPH # 2.5 103/ul Normal 1.2-3.8 [facility] Comment on above: Performed By: #### C BC #### [facility] [address] [place] [address] Dr. Manda York Lymphocytes/100 WBC (Bld) 24.9 % Normal 20.5-60.0 [facility] Comment on above: Performed By: #### C BC #### [facility] [address] [place] [address] Dr. Manda York MANUAL DIFF REQ NO Normal [facility] Comment on above: Performed By: #### C BC #### [facility] [address] [place] [address] Dr. Manda York MCH (RBC) [Entitic mass] 27.9 pg Normal 26.7-34.0 [facility] Comment on above: Performed By: #### C BC #### [facility] [address] [place] [address] Dr. Manda York MCHC (RBC) [Mass/Vol] 31.8 g/dL Normal 29.9-35.2 [facility] Comment on above: Performed By: #### C BC #### [facility] [address] [address] [address] aMnda York MCV (RBC) [Entitic vol] 87.6 fL Normal 81.0-99.0 [facility] Comment on above: Performed By: #### C BC #### [facility] [address] [address] [address] Manda York MONO # 0.6 103/ul Normal 0.3-0.8 [facility] Comment on above: Performed By: #### C BC #### [facility] [address] [address] [address] Manda York Monocytes/100 WBC (Bld) 6.3 % Normal 1.7-12.0 [facility] Comment on above: Performed By: #### C BC #### [facility] [address] [place] [address] Dr. Manda York NEUT # 6.5 103/ul Normal 1.4-6.5 [facility] Comment on above: Performed By: #### C BC #### [facility] [address] [place] [address] Dr. Manda York Neutrophils/100 WBC (Bld) 65.7 % Normal 43.0-75.0 [facility] Comment on above: Performed By: #### C BC #### [facility] [address] [address] [address] Manda York Platelet mean volume (Bld) [Entitic vol] 10.1 fL Normal 9.5-13.5 [facility] Comment on above: Performed By: #### C BC #### [facility] [address] [address] [address] Manda York PLT 304 103/ul Normal 150-450 [facility] Comment on above: Performed By: #### C BC #### [facility] [address] [address] [address] Manda York RBC 4.59 106/ul Normal 4.20-5.40 [facility] Comment on above: Performed By: #### C BC #### [facility] [address] [place] [address] Dr. Manda York WBC 9.9 103/ul Normal 4.0-11.0 [facility] Comment on above: Performed By: #### C BC #### [facility] [address] [place] [address] Dr. Manda York PROF 14(COMP METB)on 022 Albumin [Mass/Vol] 3.7 g/dL Normal 3.4-5.0 [facility] Comment on above: Performed By: #### C BC #### [facility] [address] [place] [address] Dr. Manda York Albumin/Globulin [Mass ratio] 1.0 {ratio} Normal [facility] Comment on above: Performed By: #### C BC #### [facility] [address] [place] [address] Dr. Manda York ALP [Catalytic activity/Vol] 65 U/L Normal 46-116 [facility] Comment on above: Performed By: #### C BC #### [facility] [address] [place] [address] Dr. Manda York ALT [Catalytic activity/Vol] 35 U/L Normal 14-59 [facility] Comment on above: Performed By: #### C BC #### [facility] [address] [place] [address] Dr. Manda York Anion gap [Moles/Vol] 13.0 mmol/L Normal [facility] Comment on above: Performed By: #### C BC #### [facility] [address] [place] [address] Dr. Manda York AST [Catalytic activity/Vol] 12 U/L Critically low 15-37 [facility] Comment on above: Performed By: #### C BC #### [facility] [address] [place] [address] Dr. Manda York Bilirubin [Mass/Vol] 0.2 mg/dL Normal 0.2-1.0 [facility] Comment on above: Performed By: #### C BC #### [facility] [address] [place] [address] Dr. Manda York Calcium [Mass/Vol] 8.7 mg/dL Normal 8.5-10.1 [facility] Comment on above: Performed By: #### C BC #### [facility] [address] [place] [address] Dr. Manda York Chloride [Moles/Vol] 104 mmol/L Normal 98-107 [facility] Comment on above: Performed By: #### C BC #### [facility] [address] [place] [address] Dr. Manda York CO2 [Moles/Vol] 24.9 mmol/L Normal 21.0-32.0 [facility] Comment on above: Performed By: #### C BC #### [facility] [address] [place] [address] Dr. Manda York Creatinine [Mass/Vol] 0.77 mg/dL Normal 0.55-1.02 [facility] Comment on above: Performed By: #### C BC #### [facility] [address] [place] [address] Dr. Manda York EGFR-AF SWEDISH >=60 Normal >=60 [facility] Comment on above: Performed By: #### C BC #### [facility] [address] [place] [address] Dr. Manda York EGFR-NON AF SWEDISH >=60 Normal >=60 [facility] Comment on above: Performed By: #### C BC #### [facility] [address] [place] [address] Dr. Manda York Globulin (S) [Mass/Vol] 3.8 g/dL Normal [facility] Comment on above: Performed By: #### C BC #### [facility] [address] [place] [address] Dr. Manda York Glucose [Mass/Vol] 110 mg/dL Critically high 74-106 [facility] Comment on above: Performed By: #### C BC #### [facility] [address] [place] [address] Dr. Manda York Potassium [Moles/Vol] 3.9 mmol/L Normal 3.5-5.1 [facility] Comment on above: Performed By: #### C BC #### [facility] [address] [place] [address] Dr. Manda York Protein [Mass/Vol] 7.5 g/dL Normal 6.4-8.2 [facility] Comment on above: Performed By: #### C BC #### [facility] [address] [address] [address] Manda York Sodium [Moles/Vol] 138 mmol/L Normal 136-145 [facility] Comment on above: Performed By: #### C BC #### [facility] [address] [place] [address] Dr. Manda York Urea nitrogen [Mass/Vol] 17.0 mg/dL Normal 7.0-18.0 [facility] Comment on above: Performed By: #### C BC #### [facility] [address] [place] [address] Dr. Manda York Urea nitrogen/Creatinine [Mass ratio] 22.1 mg/mg Normal [facility] Comment on above: Performed By: #### C BC #### [facility] [address] [place] [address] Dr. Manda York SED RATE [facility] 2021 SED RATE 45 mm/hr Critically high <=20 [facility] Comment on above: Performed By: #### F T4 #### [facility] [address] [place] [address] Dr. Manda York CHRISTIAN EIA W/REFLEX 5 BIOMARKER Son 10-06-2021 CHRISTIAN Direct Positive Abnormal Negative [facility] Comment on above: Performed By: #### C BC #### [facility] [address] [place] [address] Dr. Manda York Anti-DNA (DS) Ab Qn 10 IU/mL Critically high 0-9 [facility] Comment on above: Result Comment: Nega tive <5 Equivocal 5 - 9 Positive >9 Performed By: #### C BC #### [facility] [address] [place] [address] Dr. Manda York TAX INTERN Antibodies <0.2 Normal 0.0-0.9 [facility] Comment on above: Performed By: #### C BC #### [facility] [address] [place] [address] [address] Manda York SEE BELOW: Comment Normal [facility] Comment on above: Result Comment: Auto antibody [...] Sm (anti-Schneider) SLE 15 - 30% --------- TAX INTERN Mixed Connective Tissue Disease 95% (U1 nRNP, SLE 30 - 50% anti-ribonucleoprotein) Polymyositis and/or Dermatomyositis 20% --------- Scl-70 (antiDNA Scleroderma (diffuse) 20 - 35% topoisomerase) Crest 13% --------- Felicita-1 Polymyositis and/or Dermatomyositis 20 - 40% --------- Centromere B Scleroderma - Crest variant 80% Performed By: #### C BC #### [facility] [address] [place] [address] Dr. Manda Solorzanoogryaniv'tye Anti-SS-A <0.2 Normal 0.0-0.9 [facility] Comment on above: Performed By: #### C BC #### [facility] [address] [place] [address] Dr. Manda Solorzanoogryaniv'tye Anti-SS-B <0.2 Normal 0.0-0.9 [facility] Comment on above: Performed By: #### C BC #### [facility] [address] [place] [address] Dr. Yilan York Schneider Antibodies <0.2 Normal 0.0-0.9 [facility] Comment on above: Performed By: #### C BC #### [facility] [address] [place] [address] Dr. Manda York CMV PLASMA PCRon 10-06-2021 CMV Quant DNA PCR (Plasma) Negative Normal Negative [facility] Comment on above: Result Comment: No C MV DNA detected. The quantitative range of this assay is 200 to 1 million IU/mL. Performed By: #### C MVPL #### [facility] [address] [place] [address] Dr. Manda York log10 CMV Qn DNA Pl UPTCAL Normal [facility] Comment on above: Result Comment: Unab le to calculate result since non-numeric result obtained for component test. Performed By: #### C MVPL #### [facility] [address] [place] [address] Dr. Manda York CMV AB IGMon 2021 Cytomegalovirus (CMV) Ab, IgM 35.5 AU/mL Critically high 0.0-29.9 [facility] Comment on above: Result Comment: Nega tive <30.0 Equivocal 30.0 - 34.9 Positive >34.9 A positive result is generally indicative of acute infection, reactivation or persistent IgM production. Performed By: #### S LEANN MELOC #### [facility] [address] [place] [address] Dr. Manda York CMV AB, IGGon 2021 Cytomegalovirus (CMV) Ab, IgG 6.30 U/mL Critically high 0.00-0.59 [facility] Comment on above: Result Comment: Nega tive <0.60 Equivocal 0.60 - 0.69 Positive >0.69 Performed By: #### S LEANN MELOC #### [facility] [address] [place] [address] Dr. Manda York CBC AUTO DIFFon 10-03-2021 BASO # 0.1 103/ul Normal 0.0-0.1 [facility] Comment on above: Performed By: #### C BC #### [facility] [address] [place] [address] Dr. Manda York Basophils/100 WBC (Bld) 0.7 % Normal 0.2-2.0 [facility] Comment on above: Performed By: #### C BC #### [facility] [address] [place] [address] Dr. Manda York EO # 0.2 103/ul Normal 0.0-0.7 [facility] Comment on above: Performed By: #### C BC #### [facility] [address] [place] [address] Dr. Manda York Eosinophils/100 WBC (Bld) 2.0 % Normal 0.9-7.0 [facility] Comment on above: Performed By: #### C BC #### [facility] [address] [place] [address] Dr. Manda York Erythrocyte distribution width (RBC) [Ratio] 14.4 % Normal 11.0-15.0 [facility] Comment on above: Performed By: #### C BC #### [facility] [address] [place] [address] Dr. Manda York Hematocrit (Bld) [Volume fraction] 37.2 % Normal 36.0-48.0 [facility] Comment on above: Performed By: #### C BC #### [facility] [address] [place] [address] Dr. Manda York Hemoglobin (Bld) [Mass/Vol] 12.3 g/dL Normal 12.0-16.0 [facility] Comment on above: Performed By: #### C BC #### [facility] [address] [place] [address] Dr. Manda York IG # 0.02 10e3/ul Normal 0.00-0.03 [facility] Comment on above: Performed By: #### C BC #### [facility] [address] [place] [address] Dr. Manda York IG % 0.2 % Normal 0.0-0.5 [facility] Comment on above: Performed By: #### C BC #### [facility] [address] [place] [address] Dr. Manda York LYMPH # 2.1 103/ul Normal 1.2-3.8 [facility] Comment on above: Performed By: #### C BC #### [facility] [address] [place] [address] Dr. Manda York Lymphocytes/100 WBC (Bld) 26.4 % Normal 20.5-60.0 [facility] Comment on above: Performed By: #### C BC #### [facility] [address] [place] [address] Dr. Manda York MANUAL DIFF REQ NO Normal [facility] Comment on above: Performed By: #### C BC #### [facility] [address] [place] [address] Dr. Manda York MCH (RBC) [Entitic mass] 29.2 pg Normal 26.7-34.0 [facility] Comment on above: Performed By: #### C BC #### [facility] [address] [place] [address] Dr. Manda York MCHC (RBC) [Mass/Vol] 33.1 g/dL Normal 29.9-35.2 [facility] Comment on above: Performed By: #### C BC #### [facility] [address] [place] [address] Dr. Manda York MCV (RBC) [Entitic vol] 88.4 fL Normal 81.0-99.0 [facility] Comment on above: Performed By: #### C BC #### [facility] [address] [place] [address] Dr. Manda York MONO # 0.5 103/ul Normal 0.3-0.8 [facility] Comment on above: Performed By: #### C BC #### [facility] [address] [place] [address] Dr. Manda York Monocytes/100 WBC (Bld) 6.7 % Normal 1.7-12.0 [facility] Comment on above: Performed By: #### C BC #### [facility] [address] [place] [address] Dr. Manda York NEUT # 5.2 103/ul Normal 1.4-6.5 [facility] Comment on above: Performed By: #### C BC #### [facility] [address] [place] [address] Dr. Manda York Neutrophils/100 WBC (Bld) 64.0 % Normal 43.0-75.0 [facility] Comment on above: Performed By: #### C BC #### [facility] [address] [place] [address] Dr. Manda York Platelet mean volume (Bld) [Entitic vol] 10.5 fL Normal 9.5-13.5 [facility] Comment on above: Performed By: #### C BC #### [facility] [address] [place] [address] Dr. Manda York PLT 265 103/ul Normal 150-450 [facility] Comment on above: Performed By: #### C BC #### [facility] [address] [place] [address] Dr. Manda York RBC 4.21 106/ul Normal 4.20-5.40 [facility] Comment on above: Performed By: #### C BC #### [facility] [address] [place] [address] Dr. Manda York WBC 8.1 103/ul Normal 4.0-11.0 [facility] Comment on above: Performed By: #### C BC #### [facility] [address] [place] [address] Dr. Manda York CRPon 10-03-2021 CRP [Mass/Vol] mg/L Normal <=1.0 [facility] Comment on above: Performed By: #### F T4 #### [facility] [address] [place] [address] Dr. Manda [facility] mm/hr Critically high <=20 [facility] Comment on above: Performed By: #### C BC #### [facility] [address] [place] [address] Dr. Manda York CHLORIDE (POC)Ordered By: Jae Holley on 10-07-2020 Chloride [Moles/Vol] 106 mmol/L 98 - 10 7 mmol/L [employer] Work Phone: Catheterization and angiogra phy procedure details panelOrdered By: Jaren Holley on 10-07-2020 Cardiac Diagnostic R eport Demographics Patient TERA Torres Date of Study 10/07/2020 Name Date of 1980 Gender Female Age 40 year(s) Race Room [id number]^LEYDI^JAREN Height: 67 inch, 170.18 cm Number Corporate [id number] Weight: 234 pounds, 106.1 kg ID # Patient [id number] BSA: 2.16 m^2 BMI: 36.65 kg/m^2 Acct # MR # [id number] Performing Jaren Holley Physician Referring # Physician [...] Right coronary angiography. Contrast Material: - Isovue 31452 ml Fluoroscopy Time: Diagnostic: 2:12 minutes. Total: [...] assessed as CCS II according to the [place] clinical classification. Hemodynamics Condition: Baseline Room Air [...] ---------+ + !Aortic (more content not included)... [employer] Work Phone: Jr, pn Incoming C ardio Results From [facility] - 10/07/2020 10:37 AM EDT Cardiac Diagnostic Report Demographics Patient TERA Torres Date of Study 10/07/2020 Name Date of 1980 Gender Female Age 40 year(s) Race Room [id number]^LEYDI^JAREN Height: 67 inch, 170.18 cm Number Corporate [id number] Weight: 234 pounds, 106.1 kg ID # Patient [id number] BSA: 2.16 m^2 BMI: 36.65 kg/m^2 Acct # MR # [id number] Performing Jaren Holley Physician Referring # Physician [...] Right coronary angiography. Contrast Material: - Isovue 41911 ml Fluoroscopy Time: Diagnostic: 2:12 minutes. Total: [...] assessed as CCS II according to the [place] clinical classification. Hemodynamics Condition: Baseline Room Air [...] + ---------+ + Shunts Oxygen Values O2 Aauailko343.4O2 Eusvriwszes354.52 [employer] Phone: [employer] Phone: [employer] Phone: Creatinine W/GFR Point of Ca reOrdered By: Jaren Holley on 10-07-2020 Creatinine [Mass/Vol] 0.64 mg/dL 0.51 - 1.19 mg/dL [employer] Phone: GFR Non- >60 >60 mL/min [employer] Phone: GFR/1.73 sq M.predicted MDRD (S/P/Bld) [Vol rate/Area] mL/min/{1.73_m2} >60 mL/min [employer] Phone: GFR/1.73 sq M.predicted MDRD (S/P/Bld) [Vol rate/Area] [employer] Phone: Comment on above: Average GFR for 40-4 9 years old: 99 mL/min/1.73sq m Chronic Kidney Disease: <60 mL/min/1.73sq m Kidney failure: <15 mL/min/1.73sq m eGFR calculated using average adult body mass. Additional eGFR calculator available at: http://www.Privepass/multiple_crcl_2012.htm Hemoglobin and hematocrit, b loodOrdered By: Jaren Holley on 10-07-2020 Hematocrit (Bld) [Volume fraction] 41 % 36 - 46 % [employer] Phone: Hemoglobin (Bld) [Mass/Vol] 14.0 g/dL 12.0 - 16.0 g/dL [employer] Phone: No Panel InformationOrdered By: Jaren Holley on 10-07-2020 [employer] Phone: POCT GlucoseOrdered By: Anu Holley on 10-07-2020 Glucose [Mass/Vol] 98 mg/dL 74 - 100 mg/dL [employer] Phone: POCT urine pregnancyOrdered By: Jraen Holley on 10-07-2020 Beta HCG ( test) Ql (U) Negative NEGATIVE [employer] Phone: Comment on above: Specimens with hCG l evels near the threshold of the test (25 mIU/mL) may give a negative or indeterminate result. In such cases, another test should be performed with a new specimen in 48-72 hours. If early is suspected clinically in this setting, correlation with quantitative serum b-hCG level is suggested. [employer] Phone: POTASSIUM (POC)Ordered By: Al Holley on 10-07-2020 Potassium [Moles/Vol] 3.8 mmol/L 3.5 - 4.5 mmol/L [employer] Phone: Platelet Counton 10-07-2020 Platelets (Bld) [#/Vol] 299 10*3/uL Normal 138-453 [facility] Comment on above: Performed By: #### P LT #### [employer] [address] [place] [address] Brim Molder: Rick Serrano MD Platelet countOrdered By: Jae Holley on 10-07-2020 Platelets (Bld) [#/Vol] 299 10*3/uL [employer] Phone: [employer] Phone: SODIUM (POC)Ordered By: Anu Holley on 10-07-2020 Sodium [Moles/Vol] 141 mmol/L 138 - 146 mmol/L [employer] Phone: Coding Summary.on 01-12-2019 Coding Summary. 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 However, the narrative phrase printed from the coding software may appear abbreviated, or result in slightly different terminology. Coded By: Luz Judd Date Saved: 01/12/2019 10:[address] [facility] Coding Summary. 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 However, the narrative phrase printed from the coding software may appear abbreviated, or result in slightly different terminology. Revised Coded By: Luz Judd Revised Date Saved: 01/12/2019 10:[address] [facility] XR Chest 2 Viewson 9 XR [...] Valenzuela M.D. Transcribed by: BILL Technologist: ZOILA [facility] Auto Diffon 01-11-2019 Basophils/100 WBC (Bld) 0.8 % Normal 0.0-2.0 [facility] Comment on above: Order Comment: Order Added by Discern Expert. Performed By: #### 1 5430080, 2189040, 6669966, 6788948, 96286023, 4734191, 9169720, 1791113, 1049050, 39790264, 8734193 #### [facility] [address] [place] [address] Basophils/Leukocytes Auto (Bld) [Pure # fraction] 0.1 E9/L Normal 0.0-0.2 [facility] Comment on above: Order Comment: Order Added by Discern Expert. Performed By: #### 1 [id number], 8050263, 9229790, 7780019, 42172161, 3341274, 6557960, 1003406, 1712428, 96807309, 4813313 #### [facility] [address] [place] [address] Eosinophils/100 WBC (Bld) 1.9 % Normal 0.0-8.0 [facility] Comment on above: Order Comment: Order Added by Discern Expert. Performed By: #### 1 4823666, 5090098, 4759232, 2172641, 39286494, 6396800, 2425415, 9271583, 3762207, 69957146, 5301888 #### [facility] [address] [place] [address] Eosinophils/Leukocyt es Auto (Bld) [Pure # fraction] 0.1 E9/L Normal 0.0-0.5 [facility] Comment on above: Order Comment: Order Added by Discern Expert. Performed By: #### 1 6456618, 9318981, 4679080, 3022584, 21810802, 0178163, 9472878, 3856336, 0516406, 77667238, 5214682 #### [facility] [address] [place] [address] Lymphocytes/100 WBC (Bld) 28.0 % Normal 14.0-50.0 [facility] Comment on above: Order Comment: Order Added by Discern Expert. Performed By: #### 1 [id number], 1528157, 8472035, 9866671, 09247947, 5821657, 6339726, 2764381, 7992295, 28253540, 0443611 #### [facility] [address] [place] [address] Lymphocytes/Leukocyt es Auto (Bld) [Pure # fraction] 2.2 E9/L Normal 1.0-4.0 [facility] Comment on above: Order Comment: Order Added by Discern Expert. Performed By: #### 1 1747602, 2150867, 9510258, 4264048, 99245888, 0829547, 8746649, 8610650, 3845395, 09658521, 3396143 #### [facility] [address] [place] [address] Monocytes/100 WBC (Bld) 7.0 % Normal 4.0-14.0 [facility] Comment on above: Order Comment: Order Added by Discern Expert. Performed By: #### 1 8984596, 1063488, 1818166, 4075820, 83820489, 6857065, 3915968, 4366262, 5412138, 40483199, 3648182 #### [facility] [address] [place] [address] Monocytes/Leukocytes Auto (Bld) [Pure # fraction] 0.6 E9/L Normal 0.2-1.0 [facility] Comment on above: Order Comment: Order Added by Discern Expert. Performed By: #### 1 5121255, 8267628, 2398621, 6458132, 34507862, 0418962, 1612805, 3037412, 2033478, 94607718, 2915815 #### [facility] [address] [place] [address] Neutrophils/100 WBC (Bld) 62.3 % Normal 36.0-75.0 [facility] Comment on above: Order Comment: Order Added by Discern Expert. Performed By: #### 1 3915273, 0754119, 7186573, 9314622, 59340055, 4023940, 5215887, 6348494, 1277058, 02881062, 7983124 #### [facility] [address] [place] [address] Neutrophils/Leukocyt es Auto (Bld) [Pure # fraction] 4.9 E9/L Normal 2.0-7.5 [facility] Comment on above: Order Comment: Order Added by Discern Expert. Performed By: #### 1 1341799, 9595325, 1028207, 3499068, 02481848, 2080370, 7816842, 4624984, 0611501, 22805749, 1888436 #### [facility] [address] [place] [address] BMPon 01-11-2019 Creatinine [Mass/Vol] 0.7 mg/dL Normal 0.5-1.3 [facility] Comment on above: Performed By: #### 1 4006830, 9518916, 2172914, 3985173, 25488883, 8263014, 9206564, 2137411, 8324944, 57632794, 5447508 #### [facility] [address] [place] [address] Urea nitrogen [Mass/Vol] 11 mg/dL Normal 5-21 [facility] Comment on above: Performed By: #### 1 3842597, 3912131, 9768317, 1841103, 18176209, 2344897, 9827635, 0092380, 4215439, 95138270, 5861942 #### [facility] [address] [place] [address] Urea nitrogen/Creatinine [Mass ratio] 16 No Units Normal 10-20 [facility] Comment on above: Performed By: #### 1 9613485, 2708047, 2694241, 4266521, 72908770, 5481740, 1226621, 9864061, 9822475, 51711542, 4849533 #### [facility] [address] [place] [address] Anion gap [Moles/Vol] 14 mmol/L Normal 6-16 [facility] Comment on above: Performed By: #### 1 8958447, 7578675, 0506793, 7445905, 42608163, 0724834, 8823827, 6771475, 6221892, 49529012, 0257437 #### [facility] [address] [place] [address] Calcium [Mass/Vol] 8.9 mg/dL Normal 8.9-11.1 [facility] Comment on above: Performed By: #### 1 3066025, 5263507, 7875048, 6550373, 36673981, 5063966, 1472917, 2259727, 5249600, 59710860, 2658533 #### [facility] [address] [place] [address] Chloride [Moles/Vol] 107 mmol/L Normal 101-111 [facility] Comment on above: Performed By: #### 1 6611005, 8128514, 2966877, 4666686, 53522477, 3495983, 7578529, 2509864, 8936045, 59097507, 8102721 #### [facility] [address] [place] [address] CO2 [Moles/Vol] 22 mmol/L Normal 21-31 [facility] Comment on above: Performed By: #### 1 6577497, 0705713, 3934480, 1797438, 93050459, 2919068, 3301456, 3620397, 0501966, 91834436, 1311155 #### [facility] [address] [place] [address] Glucose [Mass/Vol] 122 mg/dL Normal 55-199 [facility] Comment on above: Result Comment: If t his glucose result represents a fasting glucose, interpretation should refer to the following reference range: 55-99 mg/dL Performed By: #### 1 8786694, 5410245, 5766090, 2889497, 49214157, 1319848, 7182999, 4567784, 7270161, 47020591, 6028285 #### [facility] [address] [place] [address] Potassium [Moles/Vol] 3.8 mmol/L Normal 3.5-5.3 [facility] Comment on above: Performed By: #### 1 1770911, 3275750, 7109782, 6516901, 74347669, 0983739, 7908890, 8781102, 3641643, 59278635, 7409502 #### [facility] [address] [place] [address] Sodium [Moles/Vol] 139 mmol/L Normal 135-145 [facility] Comment on above: Performed By: #### 1 6616514, 8865054, 6608725, 4349182, 71517397, 0384853, 1971664, 5241532, 8677792, 44654253, 5493929 #### [facility] [address] [place] [address] CBC w/ Auto Diffon 9 Erythrocyte distribution width (RBC) [Ratio] 14.0 % Normal 10.9-14.2 [facility] Comment on above: Performed By: #### 1 7434790, 6358647, 5147151, 7904471, 55555788, 1468215, 7355402, 0342530, 3338830, 18441192, 6147653 #### [facility] [address] [place] [address] Hematocrit (Bld) [Volume fraction] 39.9 % Normal 34.0-46.0 [facility] Comment on above: Performed By: #### 1 3958676, 3436187, 2894263, 8948390, 40701544, 3428662, 3476714, 5596254, 9593710, 26179669, 9032427 #### [facility] [address] [place] [address] Hemoglobin (Bld) [Mass/Vol] 13.5 g/dL Normal 12.0-16.0 [facility] Comment on above: Performed By: #### 1 9268530, 9624512, 3829543, 0128669, 76364641, 4165517, 1107962, 4921111, 9350881, 38047226, 1795882 #### [facility] [address] [place] [address] MCH (RBC) [Entitic mass] 29.4 pg Normal 27.0-34.0 [facility] Comment on above: Performed By: #### 1 1577359, 4462464, 7695795, 7372809, 27958613, 2311302, 2704085, 7451678, 9147087, 28654817, 7526205 #### [facility] [address] [place] [address] MCHC (RBC) [Mass/Vol] 33.7 g/dL Normal 33.3-35.7 [facility] Comment on above: Performed By: #### 1 3741886, 6340296, 0353649, 0268553, 88332960, 6236641, 2123069, 0600550, 9133714, 96352398, 3877105 #### [facility] [address] [place] [address] MCV (RBC) [Entitic vol] 87.4 fL Normal 80.0-100.0 [facility] Comment on above: Performed By: #### 1 9148707, 0747394, 9481600, 3400135, 42737363, 1624778, 1410039, 5437359, 8597311, 77229226, 8511331 #### [facility] [address] [place] [address] Platelet mean volume (Bld) [Entitic vol] 8.5 fL Normal 6.4-10.8 [facility] Comment on above: Performed By: #### 1 0854756, 8743091, 0551176, 9487278, 75910311, 8065765, 7443370, 8579666, 9084303, 93071487, 5962995 #### [facility] [address] [place] [address] Platelets (Bld) [#/Vol] 244.0 E9/L Normal 150.0-500.0 [facility] Comment on above: Performed By: #### 1 8676109, 0224830, 0431665, 3012835, 29342989, 8135430, 7341676, 6449375, 7472285, 45709774, 5926387 #### [facility] [address] [place] [address] RBC (Bld) [#/Vol] 4.6 E12/L Normal 4.3-5.9 [facility] Comment on above: Performed By: #### 1 3528446, 2214402, 7759592, 1502856, 17233238, 0435993, 6973240, 6789833, 6436122, 64779151, 3915446 #### [facility] [address] [place] [address] WBC corrected for nucl RBC Auto (Bld) [#/Vol] 7.9 E9/L Normal 4.0-11.0 [facility] Comment on above: Performed By: #### 1 0211791, 6888420, 1027582, 7058254, 20257054, 3237517, 4080795, 8247035, 5930426, 26161821, 5238411 #### [facility] [address] [place] [address] D-Dimeron 01-11-2019 Fibrin D-dimer FEU (PPP) [Mass/Vol] 265 ng/mL Normal 215-500 [facility] Comment on above: Result Comment: This D-Dimer [...] infections Liver cirrhosis Performed By: #### 1 2229505, 4036626, 6015890, 0677978, 80391064, 6284825, 0748274, 7528678, 7677612, 86791291, 5023271 #### [facility] [address] [place] [address] ED Clinical Summaryon 2018 ED Clinical Summary (Inserted Image. Melissa ble to display) [address] [address] ED Clinical Summary Person Information Name: JONES HALEY [place] Age: 38 Years : 1980 12:00 AM Sex: Female Language: [place] PCP: Charles Mitchell DO Marital Status: Single Phone: [phone] Visit Id: Visit Reason: Chest pain; CHEST [...] 01/11/2019 6:42 PM 01/11/2019 6:42 PM ADDRESS: [address] [place] [address] [id number] [facility] DOC NOTES: MEDICAL INFORMATION: Prescriptions Given: PATIENT EDUCATION INFORMATION: Instructions: Smoking Cessation; Chest Pain (Nonspecific) Follow up: With: Address: When: [place] [phone] Business (1) Within 2 to 3 days Comments: Return to ED if symptoms worsen DIAGNOSIS: 1:Chest pain Normal [facility] ED Note-Physicianon 01-12-20 19 ED Note-Physician Basic [...] prescription medications Follow-up With When Contact Information [facility] Within 2 to 3 days [address] [place] [address]- [facility] (1) Additional Instructions: Return to [...] Lymph Auto: 28 % (01/11/19 16:46:00 EDT) [place] Auto: 7 % (01/11/19 16:46:00 EDT) Eos Auto: 1.9 % (01/11/19 16:46:00 EDT) Basophil Auto: 0.8 % (01/11/19 16:46:00 EDT) Neutro Absolute: 4.9 E9/L (01/11/19 16:46:00 EDT) Lymph Absolute: 2.2 E9/L (01/11/19 16:46:00 EDT) [place] Absolute: 0.6 E9/L (01/11/19 16:46:00 EDT) Eos [...] Results EC01/11/19: SINUS RHYTHM RATE 84, NORMAL DC AND QRS, NO ST ELEVATION OR DEPRSSION, NORMAL AXIS, NORMAL QTC NORMAL ECG Signed By: Orin Browne DO 01/11/2019 15:54:18 Normal [facility] Comment on above: Result Comment: Elec tronically [...] and skin patches. Some may be available uyor-ntt-njbwrxs and others require a prescription. ? Antidepressant [...] Document Reviewed: 08/18/2012 ExitCare? Patient Information ?2014 [employer]. This information is not intended to replace [...] Document Reviewed: 12/13/2008 ExitCare? Patient Information ?2015 [employer], [employer]. This information is not intended to replace advice given to you by your health care provider. Make sure you discuss any questions you have with your health care provider. Normal [facility] ED Patient Summaryon 019 ED Patient Summary (Inserted Image. Melissa ble to display) [place] [id number] Patient Discharge Instructions Person Information Name: JONES HALEY Age: 38 Years Arrival Date: 01/11/2019 3:44 PM Discharge Diagnosis: 1:Chest pain Primary Care Physician: Charles Mitchell DO Provider Information Primary Provider: Orin Browne DO Advanced Boat[employer] Wood:None The exam and treatment you received in the Emergency Department were for an urgent problem and are not intended as complete care. It is important that you follow up with a doctor, nurse practitioner, or physician?s social media assistant for ongoing care. If your symptoms [...] Follow-up Instructions: With: Address: When: Charles Mitchell [address] [place] [address] [facility] (1) Within 2 to 3 [...] opioids can be used to help relieve pdrjhqjn-sq-jbfbrw pain and are often prescribed following a [...] be struggling with addiction, tell your health manager critical care and ask for guidance or call [employer]?S National Helpline at 1-946-008-FWHZ. v Source: US Department of Health and Human Services/Center for Disease Control & Prevention [facility] Medications Given: Medication Dose Route No medications found. Medication Information: Medications to Continue with No Changes Other Medications metformin (metformin 500 mg ER Tab) 250 Milligram By Mouth 2 times a day. Comment: Pharmacy Information: Thank you for choosing [facility] Patient Education Materials: Smoking Cessation Quitting [...] and skin patches. Some may be available vzhp-bwj-dxpoxce and others require a prescription. ? Antidepressant [...] Document Reviewed: 08/18/2012 ExitCare? Patient Information ?2015 [employer]. This information is not intended to replace [...] Document Reviewed: 12/13/2008 ExitCare? Patient Information ?2014 [employer]. This information is not intended to replace advice given to you by your health care provider. Make sure you discuss any questions you have with your health care provider. TERA Dorantes NICOLE B , have received the following patient education materials/instructions and have verbalized understanding: Patient Education Materials: Smoking Cessation; Chest Pain (Nonspecific) Follow-up Instructions: With: Address: When: [place] [phone] Business (1) Within 2 to 3 days Comments: Return to ED if symptoms worsen Prescriptions: Patient Signature Date Clinician/Nurse Signature Date 01/11/19 18:42:28 Normal [facility] Progress Note-Nurseon 2018 Progress Note-Nurse Pt explained dischar ge instructions and voiced understanding. Pt sts she will follow up with her PCP and denies any furthe questions at this time. Normal [facility] Troponin 0 Hr.on 01-11-2019 Troponin I.cardiac [Mass/Vol] ng/mL Normal <=0.03 [facility] Comment on above: Result Comment: New Troponin Assay 10/05/13 KRISHNA MS Cutoff value > or = 0.03 ng/mL in conjunction with clinical conditions of myocardial infarction. (www.escardio.org/guidelines) Performed By: #### 1 1706579, 7003838, 3187088, 7023509, 02958246, 9291668, 5612726, 0617999, 1426823, 75717169, 3258229 #### [facility] [address] [place] [address] eGFRon 01-11-2019 GFR/1.73 sq M predicted among blacks MDRD (S/P/Bld) [Vol rate/Area] mL/min/{1.73_m2} Normal >=59 [facility] Comment on above: Order Comment: Order added by Discern Expert. Result Comment: eGFR is race adjusted. AA=. Performed By: #### 1 3621445, 5637369, 1345773, 4346958, 30208157, 2084172, 1138096, 3313142, 0837701, 54430160, 5769554 #### [facility] [address] [place] [address] GFR/1.73 sq M predicted among non-blacks MDRD (S/P/Bld) [Vol rate/Area] mL/min/{1.73_m2} Normal >=59 [facility] Comment on above: Order Comment: Order added by Discern Expert. 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 Kidney failure is indicated at less than 15 mL/min/1.73m2. Performed By: #### 1 1118661, 1279416, 9269959, 5699120, 99465508, 1024335, 7474912, 2304798, 6542621, 85510021, 1671988 #### [facility] [address] [place] [address] SPINE, LUMBOSACRAL CMPLT(TOOTIE DING)on 12-05-2018 SPINE, LUMBOSACRAL CMPLT(BENDING) Patient Name: JONES HALEY STUDY: SPINE, LUMBOSACRAL; CMPLT(BENDING); 12/05/2018 1:47 pm INDICATION: LUMBAR XR. COMPARISON: None. ACCESSION NUMBER(S): [id number] ORDERING CLINICIAN: JUAN LUIS EARLY FINDINGS: No lumbar spine fracture. Scattered small endplate osteophytes. Vertebral body and disc space heights are are maintained. 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 No spondylolisthesis. No instability on flexion or extension. IMPRESSION: Degenerative changes of the lumbar spine without instability. Electronically signed by: EARNESTINE MANEUL MD [facility] XR chest 2V*on 09-17-2018 XR chest 2V* [facility] Main [place] [id number] XRay Report Signed Patient: Jones Haley MR#: [id number] : 1980 Acct:[id number] Age/Sex: 37 / F ADM Date: 09/17/18 Loc: XDUCLY Room: Type: [facility] Attending Dr: Bettina COREAS Ordering Provider: Bettina [...] Simin Nelson M.D.09/17/2018 2:04 PM Dictation Location: [facility] Transcribed By: KATHRIN 09/17/18 1404 Dictated By: Simin Nelson MD 09/17/18 1403 Signed By: 09/17/18 1404 [facility] Coding Summary.on 09-15-2018 Coding Summary. CODING DATE: 019 FINAL [facility] STATUS: Home (Routine DC) PAYOR: Medicaid [...] F17.210 Nicotine dependence, cigarettes, uncomplicated Z79.899 Other custodial (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 However, the narrative phrase printed from the coding software may appear abbreviated, or result in slightly different terminology. Coded By: Luz Judd Date Saved: 09/15/2018 07:15 am Normal [facility] Auto Diffon 09-14-2018 Basophils/100 WBC (Bld) 0.6 % Normal 0.0-2.0 [facility] Comment on above: Order Comment: Order Added by Discern Expert. Performed By: #### 1 9640021, 9540444, 2736150, 5087750, 99682471, 4738982, 0910136, 7757743, 2781680, 33079564, 1644355 #### [facility] [address] [place] [address] Basophils/Leukocytes Auto (Bld) [Pure # fraction] 0.1 E9/L Normal 0.0-0.2 [facility] Comment on above: Order Comment: Order Added by Discern Expert. Performed By: #### 1 2142959, 9870248, 5863847, 5301317, 84055237, 0356207, 8492989, 0409233, 4805558, 38632758, 6386721 #### [facility] [address] [place] [address] Eosinophils/100 WBC (Bld) 2.2 % Normal 0.0-8.0 [facility] Comment on above: Order Comment: Order Added by Discern Expert. Performed By: #### 1 9349236, 0356169, 9275765, 9743324, 71558532, 9823717, 8531016, 0738309, 6059875, 05718090, 9472996 #### [facility] [address] [place] [address] Eosinophils/Leukocyt es Auto (Bld) [Pure # fraction] 0.2 E9/L Normal 0.0-0.5 [facility] Comment on above: Order Comment: Order Added by Discern Expert. Performed By: #### 1 2005240, 3547614, 5593909, 9645602, 25522043, 0626809, 5387381, 3125682, 1539473, 06579359, 7108237 #### [facility] [address] [place] [address] Lymphocytes/100 WBC (Bld) 30.6 % Normal 14.0-50.0 [facility] Comment on above: Order Comment: Order Added by Discern Expert. Performed By: #### 1 0714273, 5193305, 4830777, 2877345, 58767393, 0613443, 6612577, 7938219, 5778378, 65168853, 5505129 #### [facility] [address] [place] [address] Lymphocytes/Leukocyt es Auto (Bld) [Pure # fraction] 3.0 E9/L Normal 1.0-4.0 [facility] Comment on above: Order Comment: Order Added by Discern Expert. Performed By: #### 1 1965091, 2284924, 1395818, 3156507, 71953285, 0197191, 7669736, 4615914, 2735651, 82182269, 2700859 #### [facility] [address] [place] [address] Monocytes/100 WBC (Bld) 7.2 % Normal 4.0-14.0 [facility] Comment on above: Order Comment: Order Added by Discern Expert. Performed By: #### 1 5537038, 3995789, 2402017, 7785475, 03924622, 0715701, 0702310, 7451334, 2969087, 38105781, 6760466 #### [facility] [address] [place] [address] Monocytes/Leukocytes Auto (Bld) [Pure # fraction] 0.7 E9/L Normal 0.2-1.0 [facility] Comment on above: Order Comment: Order Added by Discern Expert. Performed By: #### 1 4252080, 8594620, 1544270, 5602990, 44981873, 8330888, 3832009, 9121679, 9681050, 94130610, 9310824 #### [facility] [address] [place] [address] Neutrophils/100 WBC (Bld) 59.4 % Normal 36.0-75.0 [facility] Comment on above: Order Comment: Order Added by Discern Expert. Performed By: #### 1 8468327, 8694181, 6121807, 9913903, 53786532, 7107640, 9484290, 7760444, 4998954, 29846447, 9073916 #### [facility] [address] [place] [address] Neutrophils/Leukocyt es Auto (Bld) [Pure # fraction] 5.9 E9/L Normal 2.0-7.5 [facility] Comment on above: Order Comment: Order Added by Discern Expert. Performed By: #### 1 1618075, 2756253, 5353686, 4676375, 61992781, 4377787, 4708233, 5611105, 8342693, 91218086, 8818428 #### [facility] [address] [place] [address] BMPon 09-14-2018 Creatinine [Mass/Vol] 0.6 mg/dL Normal 0.5-1.3 [facility] Comment on above: Performed By: #### 1 4186010, 7968515, 0309214, 8591629, 08975128, 6956046, 3488626, 5408341, 6638776, 25734580, 0753500 #### [facility] [address] [place] [address] Urea nitrogen [Mass/Vol] 15 mg/dL Normal 5-21 [facility] Comment on above: Performed By: #### 1 0849350, 7453144, 5828092, 0668322, 36612849, 8493382, 1437073, 6284034, 4140473, 82763260, 3380963 #### [facility] [address] [place] [address] Urea nitrogen/Creatinine [Mass ratio] 25 No Units High 10-20 [facility] Comment on above: Performed By: #### 1 0861482, 1748314, 0435944, 7096995, 56959158, 8411675, 6778073, 5056729, 5119185, 41456057, 4130767 #### [facility] [address] [place] [address] Anion gap [Moles/Vol] 13 mmol/L Normal 6-16 [facility] Comment on above: Performed By: #### 1 2067447, 2857376, 9385120, 1108962, 64667738, 1038371, 5097740, 8220357, 2412286, 49630877, 4533382 #### [facility] [address] [place] [address] Calcium [Mass/Vol] 9.5 mg/dL Normal 8.9-11.1 [facility] Comment on above: Performed By: #### 1 8613729, 7700240, 6995968, 1326422, 70809221, 0147611, 5207582, 0710728, 4988643, 60026185, 8593870 #### [facility] [address] [place] [address] Chloride [Moles/Vol] 103 mmol/L Normal 101-111 [facility] Comment on above: Performed By: #### 1 2636350, 7515224, 3651873, 5656687, 95756141, 2579135, 7137044, 2880600, 5185769, 43469483, 3860549 #### [facility] [address] [place] [address] CO2 [Moles/Vol] 24 mmol/L Normal 21-31 [facility] Comment on above: Performed By: #### 1 3995254, 2530462, 3242199, 7227827, 42000789, 2600756, 6051982, 3772434, 6187818, 97825393, 1821501 #### [facility] [address] [place] [address] Glucose [Mass/Vol] 102 mg/dL Normal 55-199 [facility] Comment on above: Result Comment: If t his glucose result represents a fasting glucose, interpretation should refer to the following reference range: 55-99 mg/dL Performed By: #### 1 9055474, 1790133, 4855001, 9519774, 64957435, 5804503, 4420580, 8073221, 8283830, 50650955, 5551325 #### [facility] [address] [place] [address] Potassium [Moles/Vol] 3.6 mmol/L Normal 3.5-5.3 [facility] Comment on above: Performed By: #### 1 4798324, 2328026, 0873132, 3181277, 45032596, 1005809, 1477159, 1694638, 6090027, 38092678, 8986287 #### [facility] [address] [place] [address] Sodium [Moles/Vol] 136 mmol/L Normal 135-145 [facility] Comment on above: Performed By: #### 1 1390901, 2588035, 9532562, 1357307, 66066967, 1117850, 6022552, 9511627, 8459294, 25952231, 9076865 #### [facility] [address] [place] [address] CBC w/ Auto Diffon 9 Erythrocyte distribution width (RBC) [Ratio] 14.2 % Normal 10.9-14.2 [facility] Comment on above: Performed By: #### 1 4946641, 8400444, 2776015, 0918936, 62870720, 5737909, 7419293, 4893352, 8753808, 77344215, 8769646 #### [facility] [address] [place] [address] Hematocrit (Bld) [Volume fraction] 39.4 % Normal 34.0-46.0 [facility] Comment on above: Performed By: #### 1 0932765, 7111976, 8788976, 7273571, 36013512, 4095269, 7484814, 4581158, 4772899, 59620703, 6369213 #### [facility] [address] [place] [address] Hemoglobin (Bld) [Mass/Vol] 13.3 g/dL Normal 12.0-16.0 [facility] Comment on above: Performed By: #### 1 3409764, 4673435, 1034788, 1585674, 51118894, 8999396, 8406373, 9189239, 4646225, 78308260, 6688968 #### [facility] [address] [place] [address] MCH (RBC) [Entitic mass] 29.2 pg Normal 27.0-34.0 [facility] Comment on above: Performed By: #### 1 2724116, 2869039, 9252686, 6729780, 34282651, 4104230, 8987301, 9725577, 7563088, 27330893, 2924781 #### [facility] [address] [place] [address] MCHC (RBC) [Mass/Vol] 33.8 g/dL Normal 33.3-35.7 [facility] Comment on above: Performed By: #### 1 1264853, 1856449, 1024360, 3035441, 58790225, 3796406, 7199682, 7092777, 9657513, 97754231, 3393256 #### [facility] [address] [place] [address] MCV (RBC) [Entitic vol] 86.6 fL Normal 80.0-100.0 [facility] Comment on above: Performed By: #### 1 4060648, 9863689, 2239672, 1305269, 20994481, 1131967, 4351791, 3664393, 1779328, 60029754, 4688958 #### [facility] [address] [place] [address] Platelet mean volume (Bld) [Entitic vol] 8.8 fL Normal 6.4-10.8 [facility] Comment on above: Performed By: #### 1 1567890, 5941689, 4975292, 9554354, 34160593, 6014602, 5152716, 2049169, 1562276, 90537277, 9336612 #### [facility] [address] [place] [address] Platelets (Bld) [#/Vol] 307.0 E9/L Normal 150.0-500.0 [facility] Comment on above: Performed By: #### 1 1707840, 3047903, 9106245, 9030886, 23592478, 8782070, 4629185, 0991866, 6034064, 82858254, 8244982 #### [facility] [address] [place] [address] RBC (Bld) [#/Vol] 4.6 E12/L Normal 4.3-5.9 [facility] Comment on above: Performed By: #### 1 2811619, 8027035, 6940088, 9858705, 20080958, 7288973, 5512114, 7071043, 4423052, 30149195, 3541457 #### [facility] [address] [place] [address] WBC corrected for nucl RBC Auto (Bld) [#/Vol] 9.9 E9/L Normal 4.0-11.0 [facility] Comment on above: Performed By: #### 1 1772118, 4549190, 2132681, 1047467, 16591242, 8447702, 6833246, 9714905, 2524125, 81590303, 3530745 #### [facility] [address] [place] [address] CKon 09-14-2018 CK [Catalytic activity/Vol] 53 Int._Unit/L Normal 14-261 [facility] Comment on above: Performed By: #### 1 4865824, 1609591, 3236654, 8319656, 63481565, 4370329, 3235740, 4040918, 2998774, 89168489, 2584765 #### [facility] [address] [place] [address] ED Clinical Summaryon 2018 ED Clinical Summary (Inserted Image. Melissa ble to display) [address] [address] ED Clinical Summary Person Information Name: JONES HALEY/NewTommy Age: 37 Years : 1980 12:00 AM Sex: Female Language: Central African PCP: Charles Mitchell DO Marital Status: Single Phone: [phone] Visit Id: Visit Reason: Anxiety; Paraesthesia; NUMBNESS [...] 09/14/2018 12:17 AM 09/14/2018 12:17 AM ADDRESS: [address] [place] [id number] PHYS DOC NOTES: MEDICAL INFORMATION: Prescriptions Given: Prescription Display gabapentin (gabapentin 100 mg Cap) 100 mg = 1 cap(s), Oral, Daily, X 7 day(s), # 7 cap(s), Refills(s) 0, Pharmacy: [facility] gabapentin (gabapentin 100 mg Cap) 100 mg = 1 cap(s), Oral, Daily, X 7 day(s), # 7 cap(s), Refills(s) 0, Pharmacy: [facility]/pharmacy #6177 magnesium oxide (magnesium oxide 400 mg Tab) 400 mg = 1 tab(s), Oral, Daily, X 7 day(s), # 7 tab(s), Refills(s) 0, Pharmacy: [facility] magnesium oxide (magnesium oxide 400 mg Tab) 400 mg = 1 tab(s), Oral, Daily, X 7 day(s), # 7 tab(s), Refills(s) 0, Pharmacy: [facility]/pharmacy #6177 Home Meds Display metformin (metformin 500 mg ER Tab) 250 mg, Oral, BID, Refills(s) 0 PATIENT EDUCATION INFORMATION: Instructions: Paresthesia, Lwyp-vo-Kokk; Restless Legs Syndrome Follow up: With: Address: When: Sayda Kelley [address] [place] [address] Business (1) Within 1 to 2 days Comments: neurologist you may also follow up with him With: Address: When: [address] [address] Business (1) Within 1 to 2 days Comments: Return to ED if symptoms worsen DIAGNOSIS: 1:Restless leg syndrome Normal [facility] ED Note-Nursingon 09-14-2018 ED Note-Nursing Pt up to RR, gait steady. Normal [facility] ED Note-Nursing Aware of need for ur ine specimen, denies urge at present, states will notify when able to produce sample, will monitor. Normal [facility] ED Note-Physicianon 09-15-19 19 ED Note-Physician Basic [...] day(s), # 7 cap(s), Refills(s) 0, Pharmacy: [facility]/pharmacy #6177 magnesium oxide, 400 mg = 1 tab(s), Oral, Daily, X 7 day(s), # 7 tab(s), Refills(s) 0, Pharmacy: [facility]/pharmacy #6177 Sodium Chloride 0.9% intravenous solution 1,000 [...] Sayda Kelley Within 1 to [address] [address]- Business (1) Additional Instructions: neurologist you may also follow up with him Charles Mitchell Within 1 to [address] [place] [address]- Business (1) Additional Instructions: Return to ED if symptoms worsen Patient Education Paresthesia, Mdrj-la-Xjfi Restless Legs Syndrome Problem List/Past Medical History [...] Lymph Auto: 30.6 % (09/13/18 23:03:00 EDT) [place] Auto: 7.2 % (09/13/18 23:03:00 EDT) Eos Auto: 2.2 % (09/13/18 23:03:00 EDT) Basophil Auto: 0.6 % (09/13/18 23:03:00 EDT) Neutro Absolute: 5.9 E9/L (09/13/18 23:03:00 EDT) Lymph Absolute: 3 E9/L (09/13/18 23:03:00 EDT) [place] Absolute: 0.7 E9/L (09/13/18 23:03:00 EDT) Eos [...] No qualifying data available. Normal [facility] Comment on above: Result Comment: Elec tronically [...] Document Reviewed: 01/29/2012 ExitCare? Patient Information ?2015 [employer]. This information is not intended to replace [...] ? Drawing. ? Crawling. ? Worming. ? Idanha. ? Tingling. ? Pins and needles. ? [...] Document Reviewed: 08/06/2011 ExitCare? Patient Information ?2015 [employer]. This information is not intended to replace advice given to you by your health care provider. Make sure you discuss any questions you have with your health care provider. Normal [facility] ED Patient Summaryon 019 ED Patient Summary (Inserted Image. Melissa ble to display) [address] [address] Patient Discharge Instructions Person Information Name: JONES HALEY Age: 37 Years Arrival Date: 09/13/2018 10:16 PM Discharge Diagnosis: 1:Restless leg syndrome Primary Care Physician: Charles Mitchell DO Provider Information Primary Provider: Génesis Lozoya DO Advanced [employer] Wood:None The exam and treatment you received in the Emergency Department were for an urgent problem and are not intended as complete care. It is important that you follow up with a doctor, nurse practitioner, or physician?s social media assistant for ongoing care. If your symptoms [...] Follow-up Instructions: With: Address: When: Sayda Kelley [facility], [address] [place] [address] Business (1) Within 1 to 2 days Comments: neurologist you may also follow up with him With: Address: When: Charles Mitchell [address] [place] [address] Business (1) Within 1 to 2 days Comments: Return to ED if symptoms worsen In the event that this physician does not participate in your insurance network, please consult with your insurance company to find a nearby participating provider. Patient Education Materials: Paresthesia, Lceo-kv-Hgqc; Restless Legs Syndrome A MESSAGE TO ALL PATIENTS REGARDING OPIOIDS PRESCRIPTION OPIOIDS: WHAT YOU NEED TO KNOW Prescription opioids can be used to help relieve qxcirmmx-qu-udhjnj pain and are often prescribed following a [...] be struggling with addiction, tell your health manager critical care and ask for guidance or call [facility] National Helpline at 9-952-049-XEHB. s Source: US Department of Health and Human Services/Center for Disease Control & Prevention [facility] Medications Given: Medication Dose Route Sodium Chloride 0.9% intravenous solution 1000.00 mL Initial Volume 1000.00 mL/hr IV Piggyback Left Mid Forearm Medication Information: New Medications [id number], [address], [place] [id number], [phone] gabapentin (gabapentin 100 mg Cap) 1 Capsules By Mouth every day for 7 Days. Refills: 0. magnesium oxide (magnesium oxide 400 mg Tab) 1 Tabs By Mouth every day for 7 Days. Refills: 0. [facility], [address] [facility] [address] [place], [place] [id number], [phone] gabapentin (gabapentin 100 mg Cap) 1 Capsules By Mouth every day for 7 Days. Refills: 0. magnesium oxide (magnesium oxide 400 mg Tab) 1 Tabs By Mouth every day for 7 Days. Refills: 0. Medications to Continue with No Changes Other Medications metformin (metformin 500 mg ER Tab) 250 Milligram By Mouth 2 times a day. Comment: Pharmacy Information: Thank you for choosing [facility] Patient Education Materials: Paresthesia Paresthesia is [...] Document Reviewed: 01/29/2012 ExitCare? Patient Information ?2015 [employer] [facility]. This information is not intended to [...] ? Drawing. ? Crawling. ? Worming. ? Idanha. ? Tingling. ? Pins and needles. ? [...] Document Reviewed: 08/06/2011 ExitCare? Patient Information ?2014 [employer] [facility]. This information is not intended to replace advice given to you by your health care provider. Make sure you discuss any questions you have with your health care provider. TERA Dorantes NICOLE B , have received the following patient education materials/instructions and have verbalized understanding: Patient Education Materials: Paresthesia, Hbam-sc-Byhj; Restless Legs Syndrome Follow-up Instructions: With: Address: When: Sayda Kelley [facility], [address] [place] [address] Business (1) Within 1 to 2 days Comments: neurologist you may also follow up with him With: Address: When: [address] [address] Business (1) Within 1 to 2 days Comments: Return to ED if symptoms worsen Prescriptions: [gabapentin (gabapentin 100 mg Cap)] [gabapentin (gabapentin 100 mg Cap)] [magnesium oxide (magnesium oxide 400 mg Tab)] [magnesium oxide (magnesium oxide 400 mg Tab)] Patient Signature Date Clinician/Nurse Signature Date 09/14/18 00:21:38 Normal [facility] Hep Func Panelon 09-14-2018 Bilirubin.direct [Mass/Vol] UTC Abnormal 0.1-0.9 [facility] Comment on above: Result Comment: Resu lt verified by Discern Rule. Performed result [facility] (Unable to Calculate) was sent as an Alpha code due the inability to calculate a valid numeric value. Performed By: #### 1 [id number], 6923017, 0555739, 2619243, 76821421, 3304521, 5701488, 6674792, 6820966, 92267492, 2672142 #### [facility] [address] [place] [address] Albumin [Mass/Vol] 1.1 g/dL Normal 1.1-2.2 [facility] Comment on above: Performed By: #### 1 2481629, 2956642, 1603681, 1882629, 46913812, 8542333, 8898830, 7524137, 4444481, 76932527, 7456765 #### [facility] [address] [place] [address] Albumin [Mass/Vol] 4.1 g/dL Normal 3.3-5.0 [facility] Comment on above: Performed By: #### 1 7609495, 6892118, 7823855, 2731852, 15619264, 1479744, 1948795, 2644790, 0429100, 55400914, 8523245 #### [facility] [address] [place] [address] ALP [Catalytic activity/Vol] 69 Int._Unit/L Normal 21-98 [facility] Comment on above: Performed By: #### 1 1504647, 4554645, 0969616, 3713915, 98810672, 1556569, 1985995, 6834334, 8947407, 55609469, 6126148 #### [facility] [address] [place] [address] ALT No additional P-5'-P [Catalytic activity/Vol] 27 Int._Unit/L Normal 6-46 [facility] Comment on above: Performed By: #### 1 7313092, 9922497, 7556544, 5131010, 06808378, 2291342, 2025813, 8674324, 1516464, 35151051, 5939985 #### [facility] [address] [place] [address] AST [Catalytic activity/Vol] 16 Int._Unit/L Normal 5-43 [facility] Comment on above: Performed By: #### 1 2228925, 0362220, 5966273, 8187340, 99120276, 8625824, 6297769, 1463844, 9797131, 00212206, 9712461 #### [facility] [address] [place] [address] Bilirubin [Mass/Vol] 0.5 mg/dL Normal 0.0-1.1 [facility] Comment on above: Performed By: #### 1 5354985, 5135670, 6915843, 6602146, 12275201, 6772100, 9529401, 2210598, 7665084, 76725344, 7180357 #### [facility] [address] [place] [address] Bilirubin.direct [Mass/Vol] mg/dL Normal 0.1-0.4 [facility] Comment on above: Performed By: #### 1 4754044, 4857545, 5714172, 9893479, 88467292, 5109976, 9340385, 7125061, 2834291, 17560071, 9186375 #### [facility] [address] [place] [address] Globulin (S) [Mass/Vol] 3.7 g/dL Normal 1.4-4.0 [facility] Comment on above: Performed By: #### 1 8327105, 5824984, 2231160, 8457282, 66488295, 5510510, 4026141, 3395885, 7720361, 14296537, 0237879 #### [facility] [address] [place] [address] Protein [Mass/Vol] 7.8 g/dL Normal 6.0-7.8 [facility] Comment on above: Performed By: #### 1 3417593, 9003887, 2343004, 6088717, 40733421, 5371334, 0110611, 8593966, 8712313, 72960516, 1880149 #### [facility] [address] [place] [address] Magnesiumon 09-14-2018 Magnesium [Mass/Vol] 1.9 mg/dL Normal 1.3-2.4 [facility] Comment on above: Performed By: #### 1 3880766, 8876022, 6827969, 7352097, 23584619, 3136385, 0537843, 6474112, 6835122, 40875584, 1590032 #### [facility] [address] [place] [address] Myoglobinon 09-14-2018 Myoglobin [Mass/Vol] 9 ng/mL Normal <=69 [facility] Comment on above: Performed By: #### 1 1484013, 7822256, 1055558, 5218933, 13427410, 5738870, 4441122, 0006858, 0628802, 03585395, 0872547 #### [facility] [address] [place] [address] PT & PTTon 09-14-2018 aPTT Coag (PPP) [Time] 34.5 second(s) Normal 25.1-36.5 [facility] Comment on above: Result Comment: Hepa rin therapeutic range (represented by Anti-Factor Xa activity of 0.2 - 0.4 U/mL) corresponds to PTT of 56.6 - 109.0 sec. Performed By: #### 1 5577922, 9653448, 2600579, 0477691, 62439064, 2727043, 7936778, 4515807, 9355274, 88357500, 1212419 #### [facility] [address] [place] [address] INR Coag (PPP) [Relative time] 1.0 {INR} [facility] Comment on above: Result Comment: INR results are specifically intended to assess patients stabilized on long-term Anticoagulation therapy suggested INR?s ?Less Intensive Anticoagulation? 2.0 ? 3.0 Conventional Range 3.0 ? 4.5 Performed By: #### 1 3738639, 1229616, 5805925, 0230501, 99243840, 8171996, 7044874, 6081739, 2814552, 81719626, 0372270 #### [facility] [address] [place] [address] PT Coag (PPP) [Time] 11.2 second(s) Normal 10.2-12.9 [facility] Comment on above: Performed By: #### 1 3110101, 3248546, 8273266, 9489050, 64626939, 8573378, 0664760, 0460090, 6831487, 70643354, 1743227 #### [facility] [address] [place] [address] Phosphoruson 09-14-2018 Phosphate [Mass/Vol] 3.8 mg/dL Normal 1.9-4.6 [facility] Comment on above: Performed By: #### 1 5332616, 5968885, 5206288, 5074025, 14949327, 2414122, 1124279, 3041993, 2755650, 97638420, 4932228 #### [facility] [address] [place] [address] Troponin 0 Hr.on 09-14-2018 Troponin I.cardiac [Mass/Vol] ng/mL Normal <=0.03 [facility] Comment on above: Result Comment: New Troponin Assay 10/05/13 KRISHNA MS Cutoff value > or = 0.03 ng/mL in conjunction with clinical conditions of myocardial infarction. ([email or web address]) Performed By: #### 1 8206750, 6457112, 6212187, 2909019, 42920373, 6880363, 0833586, 3560081, 5199200, 89611966, 1030492 #### [facility] [address] [place] [address] UA With Cult Reflexon 2018 Bacteria LM Ql (Urine sed) TRACE Normal Trace [facility] Comment on above: Performed By: #### 1 0880963, 6174132, 8410568, 3161319, 43562615, 2750767, 4224524, 5816437, 1818280, 54046679, 0300756 #### [facility] [address] [place] [address] Bilirubin Ql (U) Negative Normal Negative [facility] Comment on above: Performed By: #### 1 4354997, 7476257, 1494613, 4697997, 78382825, 4034529, 1828001, 9270915, 2239147, 68369336, 3253696 #### [facility] [address] [place] [address] Clarity (U) CLEAR Normal Clear [facility] Comment on above: Performed By: #### 1 8550115, 0089784, 2019367, 2910829, 73168218, 9172339, 5497368, 3346905, 5349321, 30739461, 4873302 #### [facility] [address] [place] [address] Color (U) YELLOW Normal Yellow [facility] Comment on above: Performed By: #### 1 0719513, 8400417, 7171209, 3128306, 33206362, 0754242, 0998451, 2837236, 2177939, 71685222, 1408602 #### [facility] [address] [place] [address] Epithelial cells.squamous LM.HPF (Urine sed) [#/Area] 0-2 Normal 0-2 [facility] Comment on above: Performed By: #### 1 9149846, 8721068, 9824181, 6504035, 17448206, 4107727, 4377691, 2499607, 7959949, 88192010, 1451101 #### [facility] [address] [place] [address] Glucose Test strip (U) [Mass/Vol] Negative Normal Negative [facility] Comment on above: Performed By: #### 1 4260964, 5420428, 7160283, 1709948, 93434370, 6309372, 6861355, 9654753, 4441992, 65878157, 4697096 #### [facility] [address] [place] [address] Hemoglobin Ql (U) Negative Normal Negative [facility] Comment on above: Performed By: #### 1 9160673, 9812262, 7052433, 9560094, 10719652, 2799311, 2077620, 0408443, 7413686, 03758429, 8177157 #### [facility] [address] [place] [address] Ketones (U) [Mass/Vol] Negative Normal Negative [facility] Comment on above: Performed By: #### 1 6586845, 6191573, 3480757, 8692022, 00196830, 3790656, 7884221, 6847058, 7275364, 01062182, 8359519 #### [facility] [address] [place], [place] [address] [place].plasma/Lithi um.RBC (Bld) [Mass ratio] 0-3 Normal 0-3 [facility] Comment on above: Performed By: #### 1 6204827, 0976302, 7924562, 7551373, 03585425, 9706826, 4598894, 4889051, 4720481, 85486204, 7471930 #### [facility] [address] [place] [address] Mucus Ql (Urine sed) TRACE Normal [facility] Comment on above: Performed By: #### 1 3543701, 2765252, 3906892, 0303358, 53235463, 0358685, 1882227, 1357860, 8293090, 65268190, 2619269 #### [facility] [address] [place] [address] Nitrite Ql (U) Negative Normal Negative [facility] Comment on above: Performed By: #### 1 6404665, 7119560, 0870740, 6316628, 96307671, 5843093, 3434516, 2379836, 3060357, 58938861, 3649171 #### [facility] [address] [place] [address] pH (U) 6.0 [pH] 5.0-9.0 [facility] Comment on above: Performed By: #### 1 9532973, 9280363, 9491153, 1800885, 29432270, 2744238, 7091547, 1657504, 9332758, 82601653, 4622642 #### [facility] [address] [place] [address] Protein (U) [Mass/Vol] Negative Normal Negative [facility] Comment on above: Performed By: #### 1 3924381, 0346197, 9324817, 6483891, 01687441, 6108471, 6205008, 4512837, 6330692, 00071899, 1326007 #### [facility] [address] [place] [address] Specific gravity (U) [Rel density] 1.010 1.005-1.030 [facility] Comment on above: Performed By: #### 1 4745804, 7078077, 3872872, 4899266, 05954228, 1556094, 9227617, 2677972, 8964150, 21101895, 0804063 #### [facility] [address] [place] [address] UA Spec Desc Clean Catch Normal [facility] Comment on above: Performed By: #### 1 5173768, 3758463, 7765898, 7951181, 17952880, 6617227, 0904857, 5027705, 9645442, 40012962, 0639743 #### [facility] [address] [place] [address] Urobilinogen Qn (U) 0.2 {Carmella'U}/dL Normal 0.0-1.0 [facility] Comment on above: Performed By: #### 1 5523942, 8978301, 5193776, 7191239, 00926151, 1659590, 5861460, 6671585, 3230876, 06860986, 3612831 #### [facility] [address] [place] [address] WBC Auto Ql (U) Negative Normal Negative [facility] Comment on above: Performed By: #### 1 7351795, 4001967, 9632294, 4573418, 00620888, 9073396, 9436811, 4807510, 1804026, 45077565, 5647065 #### [facility] [address] [place] [address] WBC LM.HPF (Urine sed) [#/Area] 0-5 Normal 0-5 [facility] Comment on above: Performed By: #### 1 6137549, 5224904, 0542537, 5585651, 15042072, 8876423, 8748183, 7589952, 3380794, 82623528, 0116759 #### [facility] [address] [place] [address] XR Chest Single Viewon 09-14 XR Chest [...] by: minoo Technologist: AP Normal [facility] XR FOOT LEFT (MIN 3 VIEWS)on 09-14-2018 XR FOOT LEFT (MIN 3 VIEWS) Radiology exam is complete. No Radiologist dictation. Please follow up with ordering provider. Final result Normal [facility] XR FOOT RIGHT (MIN 3 VIEWS)o n 09-14-2018 XR FOOT RIGHT (MIN 3 VIEWS) Radiology exam is complete. No Radiologist dictation. Please follow up with ordering provider. Final result Normal [facility] eGFRon 09-14-2018 GFR/1.73 sq M predicted among blacks MDRD (S/P/Bld) [Vol rate/Area] mL/min/{1.73_m2} Normal >=59 [facility] Comment on above: Order Comment: Order added by Discern Expert. Result Comment: eGFR is race adjusted. AA=. Performed By: #### 1 6954124, 4271318, 4888481, 5099173, 53936089, 4925844, 8997960, 1557957, 7904102, 07490535, 1530661 #### [facility] [address] [place] [address] GFR/1.73 sq M predicted among non-blacks MDRD (S/P/Bld) [Vol rate/Area] mL/min/{1.73_m2} Normal >=59 [facility] Comment on above: Order Comment: Order added by Discern Expert. 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 Kidney failure is indicated at less than 15 mL/min/1.73m2. Performed By: #### 1 3183596, 1248504, 6791360, 8905357, 20733421, 0723098, 7178816, 9005644, 3574986, 50997124, 1540521 #### [facility] [address] [place] [address] Vital Signs Date Time Vital Sign Value Performing Clinician Facility 06-09-2023 08:45-0500 Body height 170.2 cm Michelle TBAOR Work Phone: [facility] 06-09-2023 08:45-0500 Body mass index (BMI) [Ratio] 44.48 kg/m2 Michelle Britton APRN-ORTHOPEDIC TECHNICIAN Work Phone: [facility] 06-09-2023 08:45-0500 Body weight 128.82 kg Michelle Britton APRN-ORTHOPEDIC TECHNICIAN Work Phone: [facility] 06-09-2023 08:45-0500 Diastolic blood pressure 82 mm[Hg] Michelle Britton APRN-ORTHOPEDIC TECHNICIAN Work Phone: [facility] 06-09-2023 08:45-0500 Heart rate 80 /min Michelle Britton PRACTICE ADVISOR-ORTHOPEDIC TECHNICIAN Work Phone: [facility] 06-09-2023 08:45-0500 Systolic blood pressure 146 mm[Hg] Michelle Britton PRACTICE ADVISOR-ORTHOPEDIC TECHNICIAN Work Phone: [facility] 05-26-2023 17:17-0500 Body weight 123.83 kg Christie Phan MD Work Phone: [facility] 04-26-2023 14:42-0500 Body weight 125.19 kg Christie Phan MD Work Phone: [facility] 03-19-2023 11:16-0400 Body temperature 97.7 [degF] Ma Sand Work Phone: [facility] 03-19-2023 11:16-0400 Diastolic blood pressure 54 mm[Hg] Ma Sand Work Phone: [facility] 03-19-2023 11:16-0400 Heart rate 75 /min Ma Sand Work Phone: [facility] 03-19-2023 11:16-0400 Respiratory rate 16 /min Ma Sand Work Phone: [facility] 03-19-2023 11:16-0400 SaO2% (BldA) [Mass fraction] 96 % Ma Sand Work Phone: [facility] 03-19-2023 11:16-0400 Systolic blood pressure 111 mm[Hg] Ma Sand Work Phone: [facility] 02-19-2023 10:56-0400 Body height 170.2 cm Jose Najera MD Work Phone: [facility] 02-19-2023 10:56-0400 Body temperature 97.39 [degF] Jose Najera MD Work Phone: [facility] 02-19-2023 10:56-0400 Body weight 120.75 kg Jose Najera MD Work Phone: [facility] 02-19-2023 10:56-0400 Diastolic blood pressure 69 mm[Hg] Jose Najera MD Work Phone: [facility] 02-19-2023 10:56-0400 Heart rate 110 /min Jose Najera MD Work Phone: [facility] 02-19-2023 10:56-0400 Respiratory rate 16 /min Jose Najera MD Work Phone: [facility] 02-19-2023 10:56-0400 SaO2% (BldA) [Mass fraction] 96 % Jose Najera MD Work Phone: [facility] 02-19-2023 10:56-0400 Systolic blood pressure 132 mm[Hg] Jose Najera MD Work Phone: [facility] 01-22-2023 12:09-0400 Diastolic blood pressure 76 mm[Hg] Ma Sand Work Phone: [facility] 01-22-2023 12:09-0400 Systolic blood pressure 107 mm[Hg] Ma Sand Work Phone: [facility] 01-22-2023 12:08-0400 Body temperature 97.59 [degF] Ma Sand Work Phone: [facility] 01-22-2023 12:08-0400 Heart rate 102 /min Ma Sand Work Phone: [facility] 01-22-2023 12:08-0400 Respiratory rate 16 /min Ma Sand Work Phone: [facility] 01-22-2023 12:08-0400 SaO2% (BldA) [Mass fraction] 97 % Ma Sand Work Phone: [facility] 11-19-2022 11:00-0400 Body temperature 97.2 [degF] Ma Sand Work Phone: [facility] 11-19-2022 11:00-0400 Diastolic blood pressure 54 mm[Hg] Ma Sand Work Phone: [facility] 11-19-2022 11:00-0400 Heart rate 98 /min Ma Sand Work Phone: [facility] 11-19-2022 11:00-0400 Respiratory rate 16 /min Ma Sand Work Phone: [facility] 11-19-2022 11:00-0400 SaO2% (BldA) [Mass fraction] 98 % Ma Sand Work Phone: [facility] 11-19-2022 11:00-0400 Systolic blood pressure 126 mm[Hg] Ma Sand Work Phone: [facility] 10-22-2022 11:51-0400 Body height 170.2 cm Ma Sand Work Phone: [facility] 10-22-2022 11:51-0400 Body weight 120.66 kg Ma Sand Work Phone: [facility] 10-22-2022 11:51-0400 Respiratory rate 16 /min Ma Sand Work Phone: [facility] 10-22-2022 10:50-0400 Body height 170.2 cm Jose Najera MD Work Phone: [facility] 10-22-2022 10:50-0400 Body temperature 97 [degF] Joes Najera MD Work Phone: [facility] 10-22-2022 10:50-0400 Body weight 120.75 kg Jose Najera MD Work Phone: [facility] 10-22-2022 10:50-0400 Diastolic blood pressure 55 mm[Hg] Jose Najera MD Work Phone: [facility] 10-22-2022 10:50-0400 Heart rate 78 /min Jose Najera MD Work Phone: [facility] 10-22-2022 10:50-0400 Respiratory rate 16 /min Jose Najera MD Work Phone: [facility] 10-22-2022 10:50-0400 SaO2% (BldA) [Mass fraction] 98 % Jose Najera MD Work Phone: [facility] 10-22-2022 10:50-0400 Systolic blood pressure 132 mm[Hg] Jose Najera MD Work Phone: [facility] 09-24-2022 10:22-0400 Body height 170.2 cm Ma Sand Work Phone: [facility] 09-24-2022 10:22-0400 Body temperature 97 [degF] Ma Sand Work Phone: [facility] 09-24-2022 10:22-0400 Body weight 120.2 kg Ma Sand Work Phone: [facility] 09-24-2022 10:22-0400 Diastolic blood pressure 81 mm[Hg] Ma Sand Work Phone: [facility] 09-24-2022 10:22-0400 Heart rate 77 /min Ma Sand Work Phone: [facility] 09-24-2022 10:22-0400 Respiratory rate 16 /min Ma Sand Work Phone: [facility] 09-24-2022 10:22-0400 SaO2% (BldA) [Mass fraction] 97 % Ma Sand Work Phone: [facility] 09-24-2022 10:22-0400 Systolic blood pressure 116 mm[Hg] Ma Sand Work Phone: [facility] 09-07-2022 14:03-0400 Body weight 120.2 kg Christie Phan MD Work Phone: [facility] 08-27-2022 09:45-0400 Body height 170.2 cm Wilmer Driver APRN.ORTHOPEDIC TECHNICIAN Work Phone: [facility] 08-27-2022 09:45-0400 Body temperature 97.7 [degF] Wilmer Driver APRN.ORTHOPEDIC TECHNICIAN Work Phone: [facility] 08-27-2022 09:45-0400 Body weight 118.66 kg Wilmer Driver PRACTICE ADVISOR.ORTHOPEDIC TECHNICIAN Work Phone: [facility] 08-27-2022 09:45-0400 Diastolic blood pressure 55 mm[Hg] Wilmer Driver PRACTICE ADVISOR.ORTHOPEDIC TECHNICIAN Work Phone: [facility] 08-27-2022 09:45-0400 Heart rate 63 /min Wilmer Driver PRACTICE ADVISOR.ORTHOPEDIC TECHNICIAN Work Phone: [facility] 08-27-2022 09:45-0400 Respiratory rate 16 /min Wilmer Driver PRACTICE ADVISOR.ORTHOPEDIC TECHNICIAN Work Phone: [facility] 08-27-2022 09:45-0400 SaO2% (BldA) [Mass fraction] 96 % Wilmer Driver PRACTICE ADVISOR.ORTHOPEDIC TECHNICIAN Work Phone: [facility] 08-27-2022 09:45-0400 Systolic blood pressure 117 mm[Hg] Wilmer Driver PRACTICE ADVISOR.ORTHOPEDIC TECHNICIAN Work Phone: [facility] 05-20-2022 13:28-0500 Body height 170.2 cm Jose Najera MD Work Phone: [facility] 05-20-2022 13:28-0500 Body temperature 97.7 [degF] Jose Najera MD Work Phone: [facility] 05-20-2022 13:28-0500 Diastolic blood pressure 70 mm[Hg] Jose Najera MD Work Phone: [facility] 05-20-2022 13:28-0500 Heart rate 93 /min Jose Najera MD Work Phone: [facility] 05-20-2022 13:28-0500 Respiratory rate 16 /min Jose Najera MD Work Phone: [facility] 05-20-2022 13:28-0500 SaO2% (BldA) [Mass fraction] 97 % Jose Najera MD Work Phone: [facility] 05-20-2022 13:28-0500 Systolic blood pressure 127 mm[Hg] Jose Najera MD Work Phone: [facility] 03-18-2022 10:49-0400 Body height 170.2 cm Jose Najera MD Work Phone: [facility] 03-18-2022 10:49-0400 Body temperature 97.81 [degF] Jose Najera MD Work Phone: [facility] 03-18-2022 10:49-0400 Body weight 113.4 kg Jose Najera MD Work Phone: [facility] 03-18-2022 10:49-0400 Diastolic blood pressure 49 mm[Hg] Jose Najera MD Work Phone: [facility] 03-18-2022 10:49-0400 Heart rate 86 /min Jose Najera MD Work Phone: [facility] 03-18-2022 10:49-0400 Respiratory rate 16 /min Jose Najera MD Work Phone: [facility] 03-18-2022 10:49-0400 SaO2% (BldA) [Mass fraction] 98 % Jose Najera MD Work Phone: [facility] 03-18-2022 10:49-0400 Systolic blood pressure 145 mm[Hg] Jose Najera MD Work Phone: [facility] 03-09-2022 11:41-0400 Body height 170.2 cm Christie Phan MD Work Phone: [facility] 03-09-2022 11:41-0400 Body weight 112.49 kg Christie Phan MD Work Phone: [facility] 03-09-2022 11:41-0400 Diastolic blood pressure 100 mm[Hg] Christie Phan MD Work Phone: [facility] 03-09-2022 11:41-0400 Systolic blood pressure 158 mm[Hg] Christie Phan MD Work Phone: [facility] 03-04-2022 10:39-0400 Body height 170.2 cm Jose Najera MD Work Phone: [facility] 03-04-2022 10:39-0400 Body temperature 97.5 [degF] Jose Najera MD Work Phone: [facility] 03-04-2022 10:39-0400 Body weight 112.76 kg Jose Najera MD Work Phone: [facility] 03-04-2022 10:39-0400 Diastolic blood pressure 48 mm[Hg] Jose Najera MD Work Phone: [facility] 03-04-2022 10:39-0400 Heart rate 79 /min Jose Najera MD Work Phone: [facility] 03-04-2022 10:39-0400 Respiratory rate 16 /min Jose Najera MD Work Phone: [facility] 03-04-2022 10:39-0400 SaO2% (BldA) [Mass fraction] 99 % Jose Najera MD Work Phone: [facility] 03-04-2022 10:39-0400 Systolic blood pressure 132 mm[Hg] Jose Najera MD Work Phone: [facility] 11-26-2021 16:00-0400 Body height 168.91 cm Mirela Kelsey Other [employer] Other 11-26-2021 16:00-0400 Body mass index (BMI) [Ratio] 37.68 kg/m2 Mirela Kelsey Other [employer] Other 11-26-2021 16:00-0400 Body temperature 98.4 [degF] Mirela Kelsey Other [facility] Other 11-26-2021 16:00-0400 Body weight 107.5 kg Mirela Kelsey Other [facility] Other 11-26-2021 16:00-0400 Diastolic blood pressure 61 mm[Hg] Mirela Kelsey Other [facility] Other 11-26-2021 16:00-0400 Systolic blood pressure 115 mm[Hg] Mirela Kelsey Other [employer] Other 10-24-2021 08:18-0400 Body weight 108.86 kg Lynne Ni MD Work Phone: [facility] 10-24-2021 08:18-0400 Diastolic blood pressure 42 mm[Hg] Lynne Ni MD Work Phone: [facility] 10-24-2021 08:18-0400 Heart rate 72 /min Lynne Ni MD Work Phone: [facility] 10-24-2021 08:18-0400 Systolic blood pressure 106 mm[Hg] Lynne Ni MD Work Phone: [facility] 10-15-2021 15:45-0400 Body height 168.91 cm Mirela Kelsey Other [employer] Other 10-15-2021 15:45-0400 Body mass index (BMI) [Ratio] 38.31 kg/m2 Mirela Kelsey Other [employer] Other 10-15-2021 15:45-0400 Body temperature 98.1 [degF] Mirela Kelsey Other [employer] Other 10-15-2021 15:45-0400 Body weight 109.32 kg Mirela Kelsey Other [employer] Other 10-15-2021 15:45-0400 Diastolic blood pressure 60 mm[Hg] Mirela Kelsey Other [employer] Other 10-15-2021 15:45-0400 Systolic blood pressure 114 mm[Hg] Mirela Kelsey Other [employer] Other 09-11-2021 15:15-0400 Body height 168.91 cm Mirela Kelsey Other [employer] Other 09-11-2021 15:15-0400 Body mass index (BMI) [Ratio] 37.99 kg/m2 Mirela Kelsey Other [employer] Other 09-11-2021 15:15-0400 Body temperature 97.9 [degF] Mirela Kelsey Other [employer] Other 09-11-2021 15:15-0400 Body weight 108.41 kg Mirela Kelsey Other [employer] Other 09-11-2021 15:15-0400 Diastolic blood pressure 83 mm[Hg] Mirela Kelsey Other [employer] Other 09-11-2021 15:15-0400 Systolic blood pressure 144 mm[Hg] Mirela Kelsey Other [employer] Other 10-07-2020 12:45-0400 Diastolic blood pressure 78 mm[Hg] [facility] [employer] Phone: 10-07-2020 12:45-0400 Heart rate 68 /min [facility] [employer] Phone: 10-07-2020 12:45-0400 SaO2% (BldA) [Mass fraction] 99 % [email or web address] Work Phone: 10-07-2020 12:45-0400 Systolic blood pressure 112 mm[Hg] [facility] [employer] Phone: 10-07-2020 10:45-0400 Respiratory rate 22 /min [employer] Phone: 10-07-2020 09:01-0400 Body height 170.2 cm [employer] Phone: 10-07-2020 09:01-0400 Body mass index (BMI) [Ratio] 36.65 kg/m2 [employer] Phone: 10-07-2020 09:01-0400 Body temperature 97.81 [degF] [employer] Phone: 10-07-2020 09:01-0400 Body weight 106.14 kg [employer] Phone: Encounters Encounter Date Encounter Type Care Provider Facility Start: 06-10-2023 End: 06-10-2023 ambulatory MADELAINE FERRIS Facility:[facility] Start: 06-09-2023 End: 06-09-2023 ambulatory [facility] Start: 06-09-2023 End: 06-09-2023 Office outpatient new 60 minutes [facility] PRACTICE ADVISOR-ORTHOPEDIC TECHNICIAN Work Phone: [facility] Comment on above: Irregular heart rate (Primary Dx); Essential hypertension; Autonomic dysfunction; Obstructive sleep apnea syndrome; Primary hypertension Start: 06-03-2023 End: 06-03-2023 ambulatory MADELAINE FERRIS Facility:[facility] Start: 06-01-2023 End: 06-01-2023 ambulatory MADELAINE FERRIS Facility:[facility] Start: 06-01-2023 End: 06-01-2023 ambulatory SHARRON ROGERS Not Available Start: 05-26-2023 End: 05-26-2023 ambulatory MADELAINE FERRIS Facility:[facility] Start: 05-26-2023 End: 05-26-2023 Office [...] Start: 04-16-2023 End: 04-16-2023 ambulatory [facility]ADELAINE Lynne [facility] Facility:[facility] Start: 04-16-2023 End: 04-16-2023 Nursing evaluation of patient and report Cele Marshall Work Phone: Hematology/Oncology Comment on above: 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); Elevated sed rate Start: 04-09-2023 End: 04-09-2023 ambulatory MADELAINE Lynne Cristina Facility:[facility] Start: 03-19-2023 End: 03-19-2023 ambulatory [facility] Facility:[facility] Start: 03-19-2023 End: 03-19-2023 Nursing evaluation of patient and report Cele Marshall Work Phone: Hematology/Oncology Comment on above: 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); Elevated sed rate Start: 03-16-2023 [facility] Work Phone: Neurology Comment on above: CMN Start: 03-11-2023 End: 03-11-2023 ambulatory [facility] Facility:[facility] Start: 03-11-2023 End: 03-11-2023 Nursing evaluation of patient and report Nurse Mora jian Fu Work Phone: Rheumatology Comment on above: Systemic lupus eryth ematosus, unspecified SLE type, unspecified organ involvement status (HCC) (Primary Dx) Start: 03-03-2023 End: 03-03-2023 ambulatory [facility] Facility:[facility] Start: 03-01-2023 Telephone encounter Lynne shaw MD Work Phone: Rheumatology Comment on above: Results (Eye Exam) Start: 02-19-2023 End: 02-19-2023 [facility] [place] Facility:[facility] Start: 02-19-2023 End: 02-19-2023 Nursing [...] Refill Request Start: 02-11-2023 End: 02-11-2023 ambulatory [facility] Facility:[facility] Start: 02-04-2023 End: 02-04-2023 ambulatory [...] deficiency; Elevated sed rate; Bilateral wrist pain; 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; Steroid-induced osteoporosis; 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 Start: 02-04-2023 Patient encounter procedure Clinton Schroeder (Pharmacist) [facility] Comment on above: SPP Inflammatory Con ditions - Treatment Referral (Benlysta); Insurance Authorization ([place] submission pending) Start: 02-04-2023 Telephone encounter Lynne shaw MD Work Phone: Rheumatology Comment on above: Appointment; Orders; Medication Authorization Start: 02-04-2023 End: 02-04-2023 ambulatory [facility] Facility:[facility] Start: 02-04-2023 End: 02-04-2023 Telemedicine consultation with patient Lynne Ni MD Work Phone: [facility] Start: 01-28-2023 Refill Christie Hays Work Phone: Integrated Medicine Comment on above: Refill Request Start: 01-24-2023 Telephone encounter Lynne shaw MD Work Phone: Rheumatology Comment on above: Results Start: 01-22-2023 End: 01-22-2023 ambulatory [facility] Facility:[facility] Start: 01-22-2023 End: 01-22-2023 Nursing evaluation of patient and report Ar Nurse Dre Marshall Work Phone: Hematology/Oncology Comment [...] with patient Misty Nelson MD Work Phone: [facility] Start: 12-29-2022 End: 12-29-2022 ambulatory MADELAINE Batista Cristina Facility:[facility] Start: 12-24-2022 Refill Christie Hays Work Phone: [facility] Comment on above: Refill Request Start: 12-18-2022 Telephone encounter Lidia Argueta RN Work Phone: Hematology/Oncology Comment on above: Care Coordination (a ppointment) Start: 12-17-2022 End: 12-18-2022 ambulatory MADELAINE Batista Cristina Facility:[facility] Start: 12-17-2022 End: 12-18-2022 ambulatory Wilmer Driver APRN.ORTHOPEDIC TECHNICIAN Work Phone: Hematology/Oncology Comment on above: 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); Chronic fatigue and malaise Start: 12-17-2022 End: 12-18-2022 Telemedicine consultation with patient Wilmer Driver APRN.ORTHOPEDIC TECHNICIAN Work Phone: [facility] Start: 12-16-2022 Telephone encounter [...] 11-19-2022 End: 11-19-2022 ambulatory MADELAINE Lynne Cristina Facility:[facility] Start: 11-19-2022 End: 11-19-2022 Nursing evaluation of patient and report Cele Marshall Work Phone: Hematology/Oncology Comment on above: 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); Elevated sed rate Start: 10-29-2022 End: 10-29-2022 ambulatory MADELAINE FERRIS Facility:[facility] Start: 10-22-2022 End: 10-22-2022 ambulatory MADELAINE FERRIS Facility:[facility] Start: 10-22-2022 End: 10-22-2022 Nursing [...] Start: 10-15-2022 End: 10-15-2022 ambulatory MADELAINE FERRIS Facility:[facility] Start: 09-24-2022 End: 09-25-2022 ambulatory MICKY PARNELL . Facility: Start: 09-24-2022 End: 09-24-2022 ambulatory MADELAINE FERRIS Facility:[facility] Start: 09-24-2022 End: 09-24-2022 Nursing evaluation of patient and report Cele Marshall Work Phone: Hematology/Oncology Comment on above: 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); Elevated sed rate Start: 09-10-2022 End: 09-10-[address] MADELAINE FERRIS . Facility: Start: 09-08-2022 Telephone encounter Angelia Washington [facility] - Compl[facility] Comment on above: Compliance Adherence Start: 09-07-2022 End: 09-07-2022 ambulatory MADELAINE FERRIS Facility:[facility] Start: 09-07-2022 End: 09-07-2022 Office [...] 08-27-2022 Nursing evaluation of patient and report Ar Nurse Dre Marshall Work Phone: Hematology/Oncology Comment on above: 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); Elevated sed rate Start: 08-27-2022 End: 08-27-2022 ambulatory Wimler Driver APRN.ORTHOPEDIC TECHNICIAN Work Phone: Hematology/Oncology Comment on above: 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); Elevated sed rate; High total serum IgM; Chronic fatigue and malaise; JOSE RAFAEL (obstructive sleep apnea) Start: 08-27-2022 End: 08-27-2022 Patient encounter procedure Wilmer Driver APRN.ORTHOPEDIC TECHNICIAN Work Phone: [facility] Start: 08-19-2022 Telephone encounter Lynne shaw MD Work Phone: Rheumatology Comment on above: Results Start: 08-18-2022 End: 08-18-2022 ambulatory MADELAINE FERRIS Facility:[facility] Start: 08-15-2022 ambulatory Lynne Ni MD Work Phone: Rheumatology Comment on above: update Start: 08-10-2022 Refill Christie Hays Work Phone: [facility] Comment on above: Refill Request Start: 07-27-2022 End: 07-27-2022 ambulatory MADELAINE FERRIS Facility:[facility] Start: 07-27-2022 End: 07-27-2022 ambulatory Timmy Heck APRN.ORTHOPEDIC TECHNICIAN Work Phone: Neurology Comment on above: JOSE RAFAEL (obstructive sle ep apnea) (Primary Dx) Start: 07-27-2022 End: 07-27-2022 Telemedicine consultation with patient Timmy Heck APRN.ORTHOPEDIC TECHNICIAN Work Phone: [facility] Start: 07-24-2022 ambulatory Lynne Ni MD Work Phone: Rheumatology Comment on above: Blood work Start: 07-24-2022 Telephone encounter Jose hooker MD Work Phone: Hematology/Oncology Comment on above: Orders (Lab Orders E xpire Before Appointment) Start: 07-21-2022 ambulatory Lawanda Miranda MD Work Phone: [facility] Start: 07-21-2022 Patient encounter procedure Lawanda [...] Start: 03-31-2022 Refill Christie Hays Work Phone: [facility] Comment on above: Refill [...] m caregiver Christie Phan MD Work Phone: [facility] Start: 03-18-2022 End: 03-18-2022 Patient encounter procedure Jose Najera MD Work Phone: [facility] Start: 03-12-2022 End: 03-13-[address] MADELAINE FERRIS . Facility: Start: 03-10-2022 End: 03-10-2022 ambulatory Tiffany Adilene DO Work Phone: Infectious Disease Comment on above: results Raised level of immu noglobulins (Primary Dx); Wound healing, delayed; Current smoker Start: 03-10-2022 E-mail encounter fro m caregiver Tiffany Head Work Phone: [facility] Start: 03-10-2022 End: 03-10-2022 Telemedicine consultation with patient Misty Nelson MD [facility] Start: 03-09-2022 End: 03-10-2022 ambulatory GAY ENCISO Facility:[facility] Start: 03-09-2022 End: 03-09-2022 Office consultation new/estab patient 80 min Christie Phan MD Work Phone: [facility] Comment on above: Obesity, Class II, B MS 35-39.9 (Primary Dx); Somnolence, daytime; Chronic fatigue [...] with patient Tiffany Head DO Work Phone: [facility] Start: 02-14-2022 End: 02-15-[address] MADELAINE FERRIS . Facility:[facility] Start: 11-26-2021 End: 11-26-2021 ambulatory Mirela Kelsey Other [facility] Other Start: 11-26-2021 Office outpatient vi sit [...] disease; Fibromyalgia Start: 10-15-2021 End: 10-15-2021 ambulatory iMrela Kelsey Other [employer] Other Start: 10-15-2021 Office outpatient vi sit 25 minutes Mirela LOPEZ Infectious Disease Start: 10-03-2021 End: [address] MIRELA KELSEY Facility:[facility] Start: 09-18-2021 End: 09-18-2021 ambulatory Mirela Kelsey Other [employer] Other Start: 09-18-2021 Telephone encounter Mirela Kelsey [facility] Infectious Disease Start: 09-11-2021 End: 09-11-2021 ambulatory Mirela Kelsey Other [facility] [employer] Other Start: 09-11-2021 Office outpatient ne w 45 minutes Mirela Kelsey [facility] Start: 10-07-2020 End: 10-08-2020 ambulatory JAREN HOLLEY [facility] Start: 10-07-2020 End: 10-07-2020 Subsequent hospital visit by physician [facility] Rm Al [facility] Comment on above: Arrived Start: 09-17-2018 End: 09-17-2018 Patient encounter procedure Bettina Jiménez Facility:[facility] Start: 09-14-2018 End: 09-17-2018 Patient encounter procedure VICTOR MANUEL Batista THOMAS [facility] Procedures Date Procedure Procedure Detail Performing Clinician Start: 06-09-2023 ECG 12-LEAD MICHELLE [place] Start: 06-09-2023 Ecg routine ecg w/le ast 12 lds w/i&r Michelle Britton PRACTICE ADVISOR-ORTHOPEDIC TECHNICIAN Work Phone: Start: 10-07-2020 End: 10-07-2020 Cardiac [...] Start: 03-17-2025 Diabetes mellitus screening Diabetes Screening [facility] Start: 07-19-2023 End: 07-19-2023 Patient encounter procedure 07/19/2023 9:15 AM EST Office Visit [facility] [address] [place] [id number] Aurora Patel MD [address] [facility] [address] [place] [address] [facility] Start: 06-09-2023 End: 06-09-2024 Holter monitor study Holter Or Event Release Engineer Cardiac Services Routine Irregular heart rate Expected: 06/09/2023 (Approximate), Expires: 06/09/2024 [facility] Work Phone: Comment on above: Expected: 06/09/2023 (Approximate), Expires: 06/09/2024 Start: 06-09-2023 End: 06-09-2024 Lipid 1996 panel - Serum or Plasma Lipid Panel Lab Routine Primary hypertension Expected: 06/09/2023 (Approximate), Expires: 06/09/2024 [facility] Work Phone: Comment on above: Expected: 06/09/2023 (Approximate), Expires: 06/09/2024 Start: 06-09-2023 End: 06-09-2024 Thyrotropin [Units/volume] in Serum or Plasma Thyroid Stimulating Hormone Lab Routine Irregular heart rate Expected: 06/09/2023 (Approximate), Expires: 06/09/2024 [facility] Work Phone: Comment on above: Expected: 06/09/2023 (Approximate), Expires: 06/09/2024 Start: 06-09-2023 End: 06-09-2024 Thyroxine (T4) free [Mass/volume] in Serum or Plasma Thyroxine, Free Lab Routine Irregular heart rate Expected: 06/09/2023 (Approximate), Expires: 06/09/2024 [facility] Work Phone: Comment on above: Expected: 06/09/2023 (Approximate), Expires: 06/09/2024 Start: 06-09-2023 End: 06-09-2025 US Heart Transthoracic Transthoracic Echo (TTE) Complete Echocardiography Routine Irregular heart rate Obstructive sleep apnea syndrome Expected: 06/09/2023 (Approximate), Expires: 06/09/2025 [facility] Work Phone: Comment on above: Expected: 06/09/2023 (Approximate), Expires: 06/09/2025 Start: 04-25-2023 End: 01-25-2024 25-hydroxyvitamin D3 [Mass/volume] in Serum or Plasma VITAMIN D 25 HYDROXY Lab Routine Vitamin D deficiency Expected: 04/25/2023 (Approximate), Expires: 01/25/2024 [facility] Work Phone: Comment on above: Expected: 04/25/2023 (Approximate), Expires: 01/25/2024 Start: 04-25-2023 End: 01-25-2024 C reactive protein [Mass/volume] in Serum or Plasma C-REACTIVE PROTEIN (CRP) Lab Routine Elevated sed rate Elevated C-reactive protein (CRP) Expected: 04/25/2023 (Approximate), Expires: 01/25/2024 [facility] Work Phone: Comment on above: Expected: 04/25/2023 (Approximate), Expires: 01/25/2024 Start: 04-25-2023 End: 01-25-2024 CBC panel - Blood by Automated count CBC Lab Routine Anemia of chronic disease Expected: 04/25/2023 (Approximate), Expires: 01/25/2024 [facility] Work Phone: Comment on above: Expected: 04/25/2023 (Approximate), Expires: 01/25/2024 Start: 04-25-2023 End: 01-25-2024 Comprehensive metabolic 2000 panel - Serum or Plasma COMP METABOLIC PANEL Lab Routine Elevated LFTs Expected: 04/25/2023 (Approximate), Expires: 01/25/2024 [facility] Work Phone: Comment on above: Expected: 04/25/2023 (Approximate), Expires: 01/25/2024 Start: 04-25-2023 End: 01-25-2024 Erythrocyte sedimentation rate SED RATE WESTERGREN Lab Routine Elevated sed rate Elevated C-reactive protein (CRP) Expected: 04/25/2023 (Approximate), Expires: 01/25/2024 [facility] Work Phone: Comment on above: Expected: 04/25/2023 (Approximate), Expires: 01/25/2024 Start: 04-20-2023 COVID-19 Vaccine (4 - Pfizer risk series) COVID-19 Vaccine (4 - Pfizer risk series) [facility] Start: 04-20-2023 Covid-19 Vaccine () Covid-19 Vaccine () [facility] Start: 04-20-2023 Covid-19 Vaccine () Covid-19 Vaccine () [facility] Start: 04-16-2023 End: 02-20-2024 CBC W Auto Differential panel - Blood CBC + DIFF Lab Routine Megaloblastic anemia due to vitamin B12 deficiency Elevated sed rate Chronic fatigue and malaise High total serum IgM JOSE RAFAEL (obstructive sleep apnea) Expected: 04/16/2023 (Approximate), Expires: 02/20/2024 [facility] Work Phone: Comment on above: Expected: 04/16/2023 (Approximate), Expires: 02/20/2024 Start: 04-16-2023 End: 02-20-2024 Cobalamin (Vitamin B12) [Mass/volume] in Serum or Plasma VITAMIN B12 BLOOD Lab Routine Megaloblastic anemia due to vitamin B12 deficiency Elevated sed rate Chronic fatigue and malaise High total serum IgM JOSE RAFAEL (obstructive sleep apnea) Expected: 04/16/2023 (Approximate), Expires: 02/20/2024 [facility] Work Phone: Comment on above: Expected: 04/16/2023 (Approximate), Expires: 02/20/2024 Start: 04-16-2023 End: 02-20-2024 Comprehensive metabolic 2000 panel - Serum or Plasma COMP METABOLIC PANEL Lab Routine Megaloblastic anemia due to vitamin B12 deficiency Elevated sed rate Chronic fatigue and malaise High total serum IgM JOSE RAFAEL (obstructive sleep apnea) Expected: 04/16/2023 (Approximate), Expires: 02/20/2024 [facility] Work Phone: Comment on above: Expected: 04/16/2023 (Approximate), Expires: 02/20/2024 Start: 04-16-2023 End: 02-20-2024 Ferritin [Mass/volume] in Serum or Plasma FERRITIN BLD Lab Routine Megaloblastic anemia due to vitamin B12 deficiency Elevated sed rate Chronic fatigue and malaise High total serum IgM JOSE RAFAEL (obstructive sleep apnea) Expected: 04/16/2023 (Approximate), Expires: 02/20/2024 [facility] Work Phone: Comment on above: Expected: 04/16/2023 (Approximate), Expires: 02/20/2024 Start: 04-16-2023 End: 02-20-2024 Folate [Mass/volume] in Serum or Plasma FOLATE SERUM Lab Routine Megaloblastic anemia due to vitamin B12 deficiency Elevated sed rate Chronic fatigue and malaise High total serum IgM JOSE RAFAEL (obstructive sleep apnea) Expected: 04/16/2023 (Approximate), Expires: 02/20/2024 [facility] Work Phone: Comment on above: Expected: 04/16/2023 (Approximate), Expires: 02/20/2024 Start: 04-16-2023 End: 02-20-2024 Iron and Iron binding capacity panel - Serum or Plasma IRON + TIBC Lab Routine Megaloblastic anemia due to vitamin B12 deficiency Elevated sed rate Chronic fatigue and malaise High total serum IgM JOSE RAFAEL (obstructive sleep apnea) Expected: 04/16/2023 (Approximate), Expires: 02/20/2024 [facility] Work Phone: Comment on above: Expected: 04/16/2023 (Approximate), Expires: 02/20/2024 Start: 03-10-2023 End: 06-09-2023 Insulin [Units/volume] in Serum or Plasma INSULIN ASSAY BLOOD Lab Routine Insulin resistance, unspecified Expected: 03/10/2023, Expires: 06/09/2023 [facility] Work Phone: Comment on above: Expected: 03/10/2023 , Expires: 06/09/2023 Start: 03-10-2023 End: 06-09-2023 INSULIN ANTIBODY BLD INSULIN ANTIBODY BLD Lab Routine Insulin resistance, unspecified Expected: 03/10/2023, Expires: 06/09/2023 [facility] Work Phone: Comment on above: Expected: 03/10/2023 , Expires: 06/09/2023 Start: 02-11-2023 End: 02-08-2024 [id number] [Mass/volume] in Serum or Plasma B2 MICROGLOBULIN B Lab Routine Megaloblastic anemia due to vitamin B12 deficiency High total serum IgM Elevated sed rate Expected: 02/11/2023 (Approximate), Expires: 02/08/2024 [facility] Work Phone: Comment on above: Expected: 02/11/2023 (Approximate), Expires: 02/08/2024 Start: 02-11-2023 End: 02-08-2024 Calcium.ionized [Moles/volume] in Blood CALCIUM IONIZED BLOOD Lab Routine Megaloblastic anemia due to vitamin B12 deficiency High total serum IgM Elevated sed rate Expected: 02/11/2023 (Approximate), Expires: 02/08/2024 [facility] Work Phone: Comment on above: Expected: 02/11/2023 (Approximate), Expires: 02/08/2024 Start: 02-11-2023 End: 02-08-2024 CBC W Auto Differential panel - Blood CBC + DIFF Lab Routine Megaloblastic anemia due to vitamin B12 deficiency High total serum IgM Elevated sed rate Expected: 02/11/2023 (Approximate), Expires: 02/08/2024 [facility] Work Phone: Comment on above: Expected: 02/11/2023 (Approximate), Expires: 02/08/2024 Start: 02-11-2023 End: 02-08-2024 Cobalamin (Vitamin B12) [Mass/volume] in Serum or Plasma VITAMIN B12 BLOOD Lab Routine Megaloblastic anemia due to vitamin B12 deficiency High total serum IgM Elevated sed rate Expected: 02/11/2023 (Approximate), Expires: 02/08/2024 [facility] Work Phone: Comment on above: Expected: 02/11/2023 (Approximate), Expires: 02/08/2024 Start: 02-11-2023 End: 02-08-2024 Comprehensive metabolic 2000 panel - Serum or Plasma COMP METABOLIC PANEL Lab Routine Megaloblastic anemia due to vitamin B12 deficiency High total serum IgM Elevated sed rate Expected: 02/11/2023 (Approximate), Expires: 02/08/2024 [facility] Work Phone: Comment on above: Expected: 02/11/2023 (Approximate), Expires: 02/08/2024 Start: 02-11-2023 End: 02-08-2024 Ferritin [Mass/volume] in Serum or Plasma FERRITIN BLD Lab Routine Megaloblastic anemia due to vitamin B12 deficiency High total serum IgM Elevated sed rate Expected: 02/11/2023 (Approximate), Expires: 02/08/2024 [facility] Work Phone: Comment on above: Expected: 02/11/2023 (Approximate), Expires: 02/08/2024 Start: 02-11-2023 End: 02-08-2024 Folate [Mass/volume] in Serum or Plasma FOLATE SERUM Lab Routine Megaloblastic anemia due to vitamin B12 deficiency High total serum IgM Elevated sed rate Expected: 02/11/2023 (Approximate), Expires: 02/08/2024 [facility] Work Phone: Comment on above: Expected: 02/11/2023 (Approximate), Expires: 02/08/2024 Start: 02-11-2023 End: 02-08-2024 Iron and Iron binding capacity panel - Serum or Plasma IRON + TIBC Lab Routine Megaloblastic anemia due to vitamin B12 deficiency High total serum IgM Elevated sed rate Expected: 02/11/2023 (Approximate), Expires: 02/08/2024 [facility] Work Phone: Comment on above: Expected: 02/11/2023 (Approximate), Expires: 02/08/2024 Start: 02-11-2023 End: 04-13-2023 KAPPA/FARMER,FREE,SER KAPPA/FARMER,FREE,SER Lab Routine Megaloblastic anemia due to vitamin B12 deficiency High total serum IgM Elevated sed rate Expected: 02/11/2023 (Approximate), Expires: 04/13/2023 [facility] Work Phone: Comment on above: Expected: 02/11/2023 (Approximate), Expires: 04/13/2023 Start: 02-11-2023 End: 02-08-2024 Lactate dehydrogenase [Enzymatic activity/volume] in Serum or Plasma LD LACTATE DEHYDRO Lab Routine Megaloblastic anemia due to vitamin B12 deficiency High total serum IgM Elevated sed rate Expected: 02/11/2023 (Approximate), Expires: 02/08/2024 [facility] Work Phone: Comment on above: Expected: 02/11/2023 (Approximate), Expires: 02/08/2024 Start: 02-11-2023 End: 02-08-2024 MONOCLONAL PROTEIN, SERUM (BLOOD) MONOCLONAL PROTEIN, SERUM (BLOOD) Lab Routine Megaloblastic anemia due to vitamin B12 deficiency High total serum IgM Elevated sed rate Expected: 02/11/2023 (Approximate), Expires: 02/08/2024 [facility] Work Phone: Comment on above: Expected: 02/11/2023 (Approximate), Expires: 02/08/2024 Start: 02-11-2023 End: 02-08-2024 Phosphate [Mass/volume] in Serum or Plasma PHOSPHORUS INORGANIC Lab Routine Megaloblastic anemia due to vitamin B12 deficiency High total serum IgM Elevated sed rate Expected: 02/11/2023 (Approximate), Expires: 02/08/2024 [facility] Work Phone: Comment on above: Expected: 02/11/2023 (Approximate), Expires: 02/08/2024 Start: 02-11-2023 End: 02-08-2024 PROTEIN ELECTROPHORESIS SERUM W/INTERP PROTEIN ELECTROPHORESIS SERUM W/INTERP Lab Routine Megaloblastic anemia due to vitamin B12 deficiency High total serum IgM Elevated sed rate Expected: 02/11/2023 (Approximate), Expires: 02/08/2024 [facility] Work Phone: Comment on above: Expected: 02/11/2023 (Approximate), Expires: 02/08/2024 Start: 02-11-2023 End: 02-08-2024 Urate [Mass/volume] in Serum or Plasma URIC ACID BLOOD Lab Routine Megaloblastic anemia due to vitamin B12 deficiency High total serum IgM Elevated sed rate Expected: 02/11/2023 (Approximate), Expires: 02/08/2024 [facility] Work Phone: Comment on above: Expected: 02/11/2023 (Approximate), Expires: 02/08/2024 Start: 01-22-2023 Influenza vaccination C [facility] Start: 12-17-2022 End: 10-23-2023 CBC W Auto Differential panel - Blood CBC + DIFF Lab Routine Megaloblastic anemia due to vitamin B12 deficiency Expected: 12/17/2022 (Approximate), Expires: 10/23/2023 [facility] Work Phone: Comment on above: Expected: 12/17/2022 (Approximate), Expires: 10/23/2023 Start: 12-17-2022 End: 10-23-2023 Cobalamin (Vitamin B12) [Mass/volume] in Serum or Plasma VITAMIN B12 BLOOD Lab Routine Megaloblastic anemia due to vitamin B12 deficiency Expected: 12/17/2022 (Approximate), Expires: 10/23/2023 [facility] Work Phone: Comment on above: Expected: 12/17/2022 (Approximate), Expires: 10/23/2023 Start: 12-17-2022 End: 10-23-2023 Comprehensive metabolic 2000 panel - Serum or Plasma COMP METABOLIC PANEL Lab Routine Megaloblastic anemia due to vitamin B12 deficiency Expected: 12/17/2022 (Approximate), Expires: 10/23/2023 [facility] Work Phone: Comment on above: Expected: 12/17/2022 (Approximate), Expires: 10/23/2023 Start: 12-17-2022 End: 10-23-2023 Ferritin [Mass/volume] in Serum or Plasma FERRITIN BLD Lab Routine Megaloblastic anemia due to vitamin B12 deficiency Expected: 12/17/2022 (Approximate), Expires: 10/23/2023 [facility] Work Phone: Comment on above: Expected: 12/17/2022 (Approximate), Expires: 10/23/2023 Start: 12-17-2022 End: 10-23-2023 Folate [Mass/volume] in Serum or Plasma FOLATE SERUM Lab Routine Megaloblastic anemia due to vitamin B12 deficiency Expected: 12/17/2022 (Approximate), Expires: 10/23/2023 [facility] Work Phone: Comment on above: Expected: 12/17/2022 (Approximate), Expires: 10/23/2023 Start: 12-17-2022 End: 10-23-2023 Iron and Iron binding capacity panel - Serum or Plasma IRON + TIBC Lab Routine Megaloblastic anemia due to vitamin B12 deficiency Expected: 12/17/2022 (Approximate), Expires: 10/23/2023 [facility] Work Phone: Comment on above: Expected: 12/17/2022 (Approximate), Expires: 10/23/2023 Start: 10-23-2022 End: 12-23-2022 25-hydroxyvitamin D3 [Mass/volume] in Serum or Plasma VITAMIN D 25 HYDROXY Lab Routine Megaloblastic anemia due to vitamin B12 deficiency Elevated sed rate High total serum IgM Chronic fatigue and malaise JOSE RAFAEL (obstructive sleep apnea) Expected: 10/23/2022, Expires: 12/23/2022 [facility] Work Phone: Comment on above: Expected: 10/23/2022 , Expires: 12/23/2022 Start: 10-23-2022 End: 12-23-2022 C reactive protein [Mass/volume] in Serum or Plasma C-REACTIVE PROTEIN (CRP) Lab Routine Megaloblastic anemia due to vitamin B12 deficiency Elevated sed rate High total serum IgM Chronic fatigue and malaise JOSE RAFAEL (obstructive sleep apnea) Expected: 10/23/2022, Expires: 12/23/2022 [facility] Work Phone: Comment on above: Expected: 10/23/2022 , Expires: 12/23/2022 Start: 10-23-2022 End: 12-23-2022 CBC W Auto Differential panel - Blood CBC + DIFF Lab Routine Megaloblastic anemia due to vitamin B12 deficiency Elevated sed rate High total serum IgM Chronic fatigue and malaise JOSE RAFAEL (obstructive sleep apnea) Expected: 10/23/2022, Expires: 12/23/2022 [facility] Work Phone: Comment on above: Expected: 10/23/2022 , Expires: 12/23/2022 Start: 10-23-2022 End: 12-23-2022 Cobalamin (Vitamin B12) [Mass/volume] in Serum or Plasma VITAMIN B12 BLOOD Lab Routine Megaloblastic anemia due to vitamin B12 deficiency Elevated sed rate High total serum IgM Chronic fatigue and malaise JOSE RAFAEL (obstructive sleep apnea) Expected: 10/23/2022, Expires: 12/23/2022 [facility] Work Phone: Comment on above: Expected: 10/23/2022 , Expires: 12/23/2022 Start: 10-23-2022 End: 12-23-2022 Comprehensive metabolic 2000 panel - Serum or Plasma COMP METABOLIC PANEL Lab Routine Megaloblastic anemia due to vitamin B12 deficiency Elevated sed rate High total serum IgM Chronic fatigue and malaise JOSE RAFAEL (obstructive sleep apnea) Expected: 10/23/2022, Expires: 12/23/2022 [facility] Work Phone: Comment on above: Expected: 10/23/2022 , Expires: 12/23/2022 Start: 10-23-2022 End: 12-23-2022 Erythrocyte sedimentation rate SED RATE WESTERGREN Lab Routine Megaloblastic anemia due to vitamin B12 deficiency Elevated sed rate High total serum IgM Chronic fatigue and malaise JOSE RAFAEL (obstructive sleep apnea) Expected: 10/23/2022, Expires: 12/23/2022 [facility] Work Phone: Comment on above: Expected: 10/23/2022 , Expires: 12/23/2022 Start: 10-23-2022 End: 12-23-2022 Lactate dehydrogenase [Enzymatic activity/volume] in Serum or Plasma LD LACTATE DEHYDRO Lab Routine Megaloblastic anemia due to vitamin B12 deficiency Elevated sed rate High total serum IgM Chronic fatigue and malaise JOSE RAFAEL (obstructive sleep apnea) Expected: 10/23/2022, Expires: 12/23/2022 [facility] Work Phone: Comment on above: Expected: 10/23/2022 , Expires: 12/23/2022 Start: 10-23-2022 End: 12-23-2022 MONOCLONAL PROTEIN, SERUM (BLOOD) MONOCLONAL PROTEIN, SERUM (BLOOD) Lab Routine Megaloblastic anemia due to vitamin B12 deficiency Elevated sed rate High total serum IgM Chronic fatigue and malaise JOSE RAFAEL (obstructive sleep apnea) Expected: 10/23/2022, Expires: 12/23/2022 [facility] Work Phone: Comment on above: Expected: 10/23/2022 , Expires: 12/23/2022 Start: 10-23-2022 End: 12-23-2022 PROT ELECT SERUM WITH DANA AND INTERP PROT ELECT SERUM WITH DANA AND INTERP Lab Routine Megaloblastic anemia due to vitamin B12 deficiency Elevated sed rate High total serum IgM Chronic fatigue and malaise JOSE RAFAEL (obstructive sleep apnea) Expected: 10/23/2022, Expires: 12/23/2022 [facility] Work Phone: Comment on above: Expected: 10/23/2022 , Expires: 12/23/2022 Start: 09-19-2022 End: 08-20-2023 CBC panel - Blood by Automated count CBC Lab Routine Anemia of chronic disease Expected: 09/19/2022 (Approximate), Expires: 08/20/2023 [facility] Work Phone: Comment on above: Expected: 09/19/2022 (Approximate), Expires: 08/20/2023 Start: 09-19-2022 End: 08-20-2023 Comprehensive metabolic 2000 panel - Serum or Plasma COMP METABOLIC PANEL Lab Routine Elevated LFTs Expected: 09/19/2022 (Approximate), Expires: 08/20/2023 [facility] Work Phone: Comment on above: Expected: 09/19/2022 (Approximate), Expires: 08/20/2023 Start: 09-19-2022 End: 11-19-2022 TPMT PHENOTYPE/ENZYME ACTIVITY TPMT PHENOTYPE/ENZYME ACTIVITY Lab Routine 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 custodial 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 Expected: 09/19/2022 (Approximate), Expires: 11/19/2022 [facility] Work Phone: Comment on above: Expected: 09/19/2022 (Approximate), Expires: 11/19/2022 Start: 08-28-2022 End: 10-28-2022 25-hydroxyvitamin D3 [Mass/volume] in Serum or Plasma VITAMIN D 25 HYDROXY Lab Routine Megaloblastic anemia due to vitamin B12 deficiency Elevated sed rate High total serum IgM Chronic fatigue and malaise Expected: 08/28/2022 (Approximate), Expires: 10/28/2022 [facility] Work Phone: Comment on above: Expected: 08/28/2022 (Approximate), Expires: 10/28/2022 Start: 08-28-2022 End: 07-26-2023 [id number] [Mass/volume] in Serum or Plasma B2 MICROGLOBULIN B Lab Routine Megaloblastic anemia due to vitamin B12 deficiency Elevated sed rate High total serum IgM Chronic fatigue and malaise Expected: 08/28/2022 (Approximate), Expires: 07/26/2023 [facility] Work Phone: Comment on above: Expected: 08/28/2022 (Approximate), Expires: 07/26/2023 Start: 08-28-2022 End: 10-28-2022 C reactive protein [Mass/volume] in Serum or Plasma C-REACTIVE PROTEIN (CRP) Lab Routine Megaloblastic anemia due to vitamin B12 deficiency Elevated sed rate High total serum IgM Chronic fatigue and malaise Expected: 08/28/2022 (Approximate), Expires: 10/28/2022 [facility] Work Phone: Comment on above: Expected: 08/28/2022 (Approximate), Expires: 10/28/2022 Start: 08-28-2022 End: 07-26-2023 Calcium.ionized [Moles/volume] in Blood CALCIUM IONIZED BLOOD Lab Routine Megaloblastic anemia due to vitamin B12 deficiency Elevated sed rate High total serum IgM Chronic fatigue and malaise Expected: 08/28/2022 (Approximate), Expires: 07/26/2023 [facility] Work Phone: Comment on above: Expected: 08/28/2022 (Approximate), Expires: 07/26/2023 Start: 08-28-2022 End: 07-26-2023 CBC W Auto Differential panel - Blood CBC + DIFF Lab Routine Megaloblastic anemia due to vitamin B12 deficiency Elevated sed rate High total serum IgM Chronic fatigue and malaise Expected: 08/28/2022 (Approximate), Expires: 07/26/2023 [facility] Work Phone: Comment on above: Expected: 08/28/2022 (Approximate), Expires: 07/26/2023 Start: 08-28-2022 End: 10-28-2022 Cobalamin (Vitamin B12) [Mass/volume] in Serum or Plasma VITAMIN B12 BLOOD Lab Routine Megaloblastic anemia due to vitamin B12 deficiency Elevated sed rate High total serum IgM Chronic fatigue and malaise Expected: 08/28/2022 (Approximate), Expires: 10/28/2022 [facility] Work Phone: Comment on above: Expected: 08/28/2022 (Approximate), Expires: 10/28/2022 Start: 08-28-2022 End: 07-26-2023 Comprehensive metabolic 2000 panel - Serum or Plasma COMP METABOLIC PANEL Lab Routine Megaloblastic anemia due to vitamin B12 deficiency Elevated sed rate High total serum IgM Chronic fatigue and malaise Expected: 08/28/2022 (Approximate), Expires: 07/26/2023 [facility] Work Phone: Comment on above: Expected: 08/28/2022 (Approximate), Expires: 07/26/2023 Start: 08-28-2022 End: 10-28-2022 Erythrocyte sedimentation rate SED RATE WESTERGREN Lab Routine Megaloblastic anemia due to vitamin B12 deficiency Elevated sed rate High total serum IgM Chronic fatigue and malaise Expected: 08/28/2022 (Approximate), Expires: 10/28/2022 [facility] Work Phone: Comment on above: Expected: 08/28/2022 (Approximate), Expires: 10/28/2022 Start: 08-28-2022 End: 10-28-2022 KAPPA/FARMER,FREE,SER KAPPA/FARMER,FREE,SER Lab Routine Megaloblastic anemia due to vitamin B12 deficiency Elevated sed rate High total serum IgM Chronic fatigue and malaise Expected: 08/28/2022 (Approximate), Expires: 10/28/2022 [facility] Work Phone: Comment on above: Expected: 08/28/2022 (Approximate), Expires: 10/28/2022 Start: 08-28-2022 End: 07-26-2023 Lactate dehydrogenase [Enzymatic activity/volume] in Serum or Plasma LD LACTATE DEHYDRO Lab Routine Megaloblastic anemia due to vitamin B12 deficiency Elevated sed rate High total serum IgM Chronic fatigue and malaise Expected: 08/28/2022 (Approximate), Expires: 07/26/2023 [facility] Work Phone: Comment on above: Expected: 08/28/2022 (Approximate), Expires: 07/26/2023 Start: 08-28-2022 End: 07-26-2023 MONOCLONAL PROTEIN, SERUM (BLOOD) MONOCLONAL PROTEIN, SERUM (BLOOD) Lab Routine Megaloblastic anemia due to vitamin B12 deficiency Elevated sed rate High total serum IgM Chronic fatigue and malaise Expected: 08/28/2022 (Approximate), Expires: 07/26/2023 [facility] Work Phone: Comment on above: Expected: 08/28/2022 (Approximate), Expires: 07/26/2023 Start: 08-28-2022 End: 07-26-2023 Phosphate [Mass/volume] in Serum or Plasma PHOSPHORUS INORGANIC Lab Routine Megaloblastic anemia due to vitamin B12 deficiency Elevated sed rate High total serum IgM Chronic fatigue and malaise Expected: 08/28/2022 (Approximate), Expires: 07/26/2023 [facility] Work Phone: Comment on above: Expected: 08/28/2022 (Approximate), Expires: 07/26/2023 Start: 08-28-2022 End: 07-26-2023 PROTEIN ELECTROPHORESIS SERUM W/INTERP PROTEIN ELECTROPHORESIS SERUM W/INTERP Lab Routine Megaloblastic anemia due to vitamin B12 deficiency Elevated sed rate High total serum IgM Chronic fatigue and malaise Expected: 08/28/2022 (Approximate), Expires: 07/26/2023 [facility] Work Phone: Comment on above: Expected: 08/28/2022 (Approximate), Expires: 07/26/2023 Start: 08-28-2022 End: 07-26-2023 Urate [Mass/volume] in Serum or Plasma URIC ACID BLOOD Lab Routine Megaloblastic anemia due to vitamin B12 deficiency Elevated sed rate High total serum IgM Chronic fatigue and malaise Expected: 08/28/2022 (Approximate), Expires: 07/26/2023 [facility] Work Phone: Comment on above: Expected: 08/28/2022 (Approximate), Expires: 07/26/2023 Start: 07-15-2022 End: 05-20-2023 [id number] [Mass/volume] in Serum or Plasma B2 MICROGLOBULIN B Lab Routine High total serum IgM Expected: 07/15/2022 (Approximate), Expires: 05/20/2023 [facility] Work Phone: Comment on above: Expected: 07/15/2022 (Approximate), Expires: 05/20/2023 Start: 07-15-2022 End: 05-20-2023 Calcium.ionized [Moles/volume] in Blood CALCIUM IONIZED BLOOD Lab Routine High total serum IgM Expected: 07/15/2022 (Approximate), Expires: 05/20/2023 [facility] Work Phone: Comment on above: Expected: 07/15/2022 (Approximate), Expires: 05/20/2023 Start: 07-15-2022 End: 05-20-2023 CBC W Auto Differential panel - Blood CBC + DIFF Lab Routine High total serum IgM Expected: 07/15/2022 (Approximate), Expires: 05/20/2023 [facility] Work Phone: Comment on above: Expected: 07/15/2022 (Approximate), Expires: 05/20/2023 Start: 07-15-2022 End: 05-20-2023 Comprehensive metabolic 2000 panel - Serum or Plasma COMP METABOLIC PANEL Lab Routine High total serum IgM Expected: 07/15/2022 (Approximate), Expires: 05/20/2023 [facility] Work Phone: Comment on above: Expected: 07/15/2022 (Approximate), Expires: 05/20/2023 Start: 07-15-2022 End: 09-14-2022 KAPPA/FARMER,FREE,SER KAPPA/FARMER,FREE,SER Lab Routine High total serum IgM Expected: 07/15/2022 (Approximate), Expires: 09/14/2022 [facility] Work Phone: Comment on above: Expected: 07/15/2022 (Approximate), Expires: 09/14/2022 Start: 07-15-2022 End: 05-20-2023 Lactate dehydrogenase [Enzymatic activity/volume] in Serum or Plasma LD LACTATE DEHYDRO Lab Routine High total serum IgM Expected: 07/15/2022 (Approximate), Expires: 05/20/2023 [facility] Work Phone: Comment on above: Expected: 07/15/2022 (Approximate), Expires: 05/20/2023 Start: 07-15-2022 End: 05-20-2023 MONOCLONAL PROTEIN, SERUM (BLOOD) MONOCLONAL PROTEIN, SERUM (BLOOD) Lab Routine High total serum IgM Expected: 07/15/2022 (Approximate), Expires: 05/20/2023 [facility] Work Phone: Comment on above: Expected: 07/15/2022 (Approximate), Expires: 05/20/2023 Start: 07-15-2022 End: 05-20-2023 Phosphate [Mass/volume] in Serum or Plasma PHOSPHORUS INORGANIC Lab Routine High total serum IgM Expected: 07/15/2022 (Approximate), Expires: 05/20/2023 [facility] Work Phone: Comment on above: Expected: 07/15/2022 (Approximate), Expires: 05/20/2023 Start: 07-15-2022 End: 05-20-2023 PROTEIN ELECTROPHORESIS SERUM W/INTERP PROTEIN ELECTROPHORESIS SERUM W/INTERP Lab Routine High total serum IgM Expected: 07/15/2022 (Approximate), Expires: 05/20/2023 [facility] Work Phone: Comment on above: Expected: 07/15/2022 (Approximate), Expires: 05/20/2023 Start: 07-15-2022 End: 05-20-2023 Urate [Mass/volume] in Serum or Plasma URIC ACID BLOOD Lab Routine High total serum IgM Expected: 07/15/2022 (Approximate), Expires: 05/20/2023 [facility] Work Phone: Comment on above: Expected: 07/15/2022 (Approximate), Expires: 05/20/2023 Start: 06-05-2022 End: 03-05-2023 25-hydroxyvitamin D3 [Mass/volume] in Serum or Plasma VITAMIN D 25 HYDROXY Lab Routine Vitamin D deficiency Expected: 06/05/2022 (Approximate), Expires: 03/05/2023 [facility] Work Phone: Comment on above: Expected: 06/05/2022 (Approximate), Expires: 03/05/2023 Start: 06-05-2022 End: 03-05-2023 C reactive protein [Mass/volume] in Serum or Plasma C-REACTIVE PROTEIN (CRP) Lab Routine Elevated sed rate Elevated C-reactive protein (CRP) Expected: 06/05/2022 (Approximate), Expires: 03/05/2023 [facility] Work Phone: Comment on above: Expected: 06/05/2022 (Approximate), Expires: 03/05/2023 Start: 06-05-2022 End: 03-05-2023 Cobalamin (Vitamin B12) [Mass/volume] in Serum or Plasma VITAMIN B12 BLOOD Lab Routine Vitamin B12 deficiency Expected: 06/05/2022 (Approximate), Expires: 03/05/2023 [facility] Work Phone: Comment on above: Expected: 06/05/2022 (Approximate), Expires: 03/05/2023 Start: 06-05-2022 End: 03-05-2023 Erythrocyte sedimentation rate SED RATE WESTERGREN Lab Routine Elevated sed rate Elevated C-reactive protein (CRP) Expected: 06/05/2022 (Approximate), Expires: 03/05/2023 [facility] Work Phone: Comment on above: Expected: 06/05/2022 (Approximate), Expires: 03/05/2023 Start: 05-06-2022 End: 03-18-2023 [id number] [Mass/volume] in Serum or Plasma B2 MICROGLOBULIN B Lab Routine Megaloblastic anemia due to vitamin B12 deficiency High total serum IgM Expected: 05/06/2022 (Approximate), Expires: 03/18/2023 [facility] Work Phone: Comment on above: Expected: 05/06/2022 (Approximate), Expires: 03/18/2023 Start: 05-06-2022 End: 03-18-2023 Calcium.ionized [Moles/volume] in Blood CALCIUM IONIZED BLOOD Lab Routine Megaloblastic anemia due to vitamin B12 deficiency High total serum IgM Expected: 05/06/2022 (Approximate), Expires: 03/18/2023 [facility] Work Phone: Comment on above: Expected: 05/06/2022 (Approximate), Expires: 03/18/2023 Start: 05-06-2022 End: 03-18-2023 CBC W Auto Differential panel - Blood CBC + DIFF Lab Routine Megaloblastic anemia due to vitamin B12 deficiency High total serum IgM Expected: 05/06/2022 (Approximate), Expires: 03/18/2023 [facility] Work Phone: Comment on above: Expected: 05/06/2022 (Approximate), Expires: 03/18/2023 Start: 05-06-2022 End: 03-18-2023 Comprehensive metabolic 2000 panel - Serum or Plasma COMP METABOLIC PANEL Lab Routine Megaloblastic anemia due to vitamin B12 deficiency High total serum IgM Expected: 05/06/2022 (Approximate), Expires: 03/18/2023 [facility] Work Phone: Comment on above: Expected: 05/06/2022 (Approximate), Expires: 03/18/2023 Start: 05-06-2022 End: 03-18-2023 Ferritin [Mass/volume] in Serum or Plasma FERRITIN BLD Lab Routine Megaloblastic anemia due to vitamin B12 deficiency High total serum IgM Expected: 05/06/2022 (Approximate), Expires: 03/18/2023 [facility] Work Phone: Comment on above: Expected: 05/06/2022 (Approximate), Expires: 03/18/2023 Start: 05-06-2022 End: 03-18-2023 Iron and Iron binding capacity panel - Serum or Plasma IRON + TIBC Lab Routine Megaloblastic anemia due to vitamin B12 deficiency High total serum IgM Expected: 05/06/2022 (Approximate), Expires: 03/18/2023 [facility] Work Phone: Comment on above: Expected: 05/06/2022 (Approximate), Expires: 03/18/2023 Start: 05-06-2022 End: 03-18-2023 Lactate dehydrogenase [Enzymatic activity/volume] in Serum or Plasma LD LACTATE DEHYDRO Lab Routine Megaloblastic anemia due to vitamin B12 deficiency High total serum IgM Expected: 05/06/2022 (Approximate), Expires: 03/18/2023 [facility] Work Phone: Comment on above: Expected: 05/06/2022 (Approximate), Expires: 03/18/2023 Start: 05-06-2022 End: 03-18-2023 MONOCLONAL PROTEIN, SERUM (BLOOD) MONOCLONAL PROTEIN, SERUM (BLOOD) Lab Routine Megaloblastic anemia due to vitamin B12 deficiency High total serum IgM Expected: 05/06/2022 (Approximate), Expires: 03/18/2023 [facility] Work Phone: Comment on above: Expected: 05/06/2022 (Approximate), Expires: 03/18/2023 Start: 05-06-2022 End: 03-18-2023 Phosphate [Mass/volume] in Serum or Plasma PHOSPHORUS INORGANIC Lab Routine Megaloblastic anemia due to vitamin B12 deficiency High total serum IgM Expected: 05/06/2022 (Approximate), Expires: 03/18/2023 [facility] Work Phone: Comment on above: Expected: 05/06/2022 (Approximate), Expires: 03/18/2023 Start: 05-06-2022 End: 03-18-2023 PROTEIN ELECTROPHORESIS SERUM W/INTERP PROTEIN ELECTROPHORESIS SERUM W/INTERP Lab Routine Megaloblastic anemia due to vitamin B12 deficiency High total serum IgM Expected: 05/06/2022 (Approximate), Expires: 03/18/2023 [facility] Work Phone: Comment on above: Expected: 05/06/2022 (Approximate), Expires: 03/18/2023 Start: 05-06-2022 End: 03-18-2023 Urate [Mass/volume] in Serum or Plasma URIC ACID BLOOD Lab Routine Megaloblastic anemia due to vitamin B12 deficiency High total serum IgM Expected: 05/06/2022 (Approximate), Expires: 03/18/2023 [facility] Work Phone: Comment on above: Expected: 05/06/2022 (Approximate), Expires: 03/18/2023 Start: 04-05-2022 COVID-19 VACCINE (5 - Pfizer risk series) COVID-19 VACCINE (5 - Pfizer risk series) [facility] Start: 03-09-2022 End: 05-09-2022 Hemoglobin A1c in Blood HGB A1C Lab Routine Elevated glucose Expected: 03/09/2022, Expires: 05/09/2022 [facility] Work Phone: Comment on above: Expected: 03/09/2022 , Expires: 05/09/2022 Start: 02-24-2022 End: 04-26-2022 BARTONELLA AB PANEL BARTONELLA AB PANEL Lab Routine Swelling of lymph nodes Expected: 02/24/2022, Expires: 04/26/2022 [facility] Work Phone: Comment on above: Expected: 02/24/2022 , Expires: 04/26/2022 Start: 02-24-2022 End: 04-26-2022 BRUCELLA AB TOTAL BRUCELLA AB TOTAL Lab Routine Swelling of lymph nodes Expected: 02/24/2022, Expires: 04/26/2022 [facility] Work Phone: Comment on above: Expected: 02/24/2022 , Expires: 04/26/2022 Start: 02-24-2022 End: 04-26-2022 Cryptococcus sp Ag [Presence] in Unspecified specimen by Latex agglutination CRYPTOCOCCUS AG DET Microbiology Routine Swelling of lymph nodes Expected: 02/24/2022, Expires: 04/26/2022 [facility] Work Phone: Comment on above: Expected: 02/24/2022 , Expires: 04/26/2022 Start: 02-24-2022 End: 04-26-2022 HISTOPLASMA AG URINE HISTOPLASMA AG URINE Lab Routine Swelling of lymph nodes Expected: 02/24/2022, Expires: 04/26/2022 [facility] Work Phone: Comment on above: Expected: 02/24/2022 , Expires: 04/26/2022 Start: 02-24-2022 End: 04-26-2022 HIV 1 RNA [#/volume] (viral load) in Serum or Plasma by YESSI with probe detection HIV RNA VIRAL LOAD Lab Routine Swelling of lymph nodes Expected: 02/24/2022, Expires: 04/26/2022 [facility] Work Phone: Comment on above: Expected: 02/24/2022 , Expires: 04/26/2022 Start: 02-24-2022 End: 04-26-2022 SYPHILIS TOTAL W/REFLEX SYPHILIS TOTAL W/REFLEX Lab Routine Swelling of lymph nodes Expected: 02/24/2022, Expires: 04/26/2022 [facility] Work Phone: Comment on above: Expected: 02/24/2022 , Expires: 04/26/2022 Start: 01-22-2022 Influenza vaccination [facility] Start: 08-24-2021 COVID-19 VACCINE (4 - Booster for Pfizer series) COVID-19 VACCINE (4 - Booster for Pfizer series) [facility] Start: 01-22-2021 Influenza vaccination Flu vacc ine (Season Ended) [facility] Work Phone: Start: [address] [facility] Work Phone: Start: 2020 Mammography [facility] Start: 2020 Screening for malign ant neoplasm of breast [facility] Start: 2010 HPV TESTING HPV TESTING [facility] Start: 2010 Screening for malign ant neoplasm of cervix HPV Testing [facility] Start: 2002 DTaP/Tdap/Td Vaccine s (1 - Tdap) DTaP/Tdap/Td Vaccines (1 - Tdap) [facility] Start: 2001 PAP TESTING PAP TESTING [facility] Start: 2001 Screening for malign ant neoplasm of cervix [facility] Start: 10-05-1999 DTaP/Tdap/Td vaccine (1 - Tdap) DTaP/Tdap/Td vaccine (1 - Tdap) [facility] Work Phone: Start: 10-05-1999 SHINGRIX VACCINE (1 of 2) SHINGRIX VACCINE (1 of 2) [facility] Start: 10-05-1999 Urine microalbumin profile [facility] Start: 10-05-1999 Zoster Vaccines (1 of 2) Zoster Vacc aston (1 of 2) [facility] Start: 1998 Hepatitis C screening Hepatitis C [facility] Start: 1998 HIV SCREENING HIV SCREENING [facility] Start: 1998 HIV screening HIV Screening [facility] Start: 10-05-1995 HIV screening HIV screen [facility] Work Phone: Start: 1992 COVID-19 Vaccine (1) COVID-19 Vaccin e (1) [employer] Phone: Start: 1986 PNEUMOCOCCAL (1 - PCV) PNEUMOCOCCAL (1 - PCV) [facility] Start: 1986 Pneumococcal vaccination [facility] Start: 1986 Pneumococcal Vaccine : Pediatrics (0 to 5 Years) and At-Risk Patients (6 to 64 Years) (1 - PCV) Pneumococcal Vaccine: Pediatrics (0 to 5 Years) and At-Risk Patients (6 to 64 Years) (1 - PCV) [facility] Start: 1981 MMR Vaccines (1 of 1 - Standard series) MMR Vaccines (1 of 1 - Standard series) [facility] Start: 1981 Varicella vaccination Varicell a Vaccines (1 of 2 - 2-dose childhood series) [facility] Start: 1981 Varicella vaccine (1 of 2 - 2-dose childhood series) Varicella vaccine (1 of 2 - 2-dose childhood series) [facility] Start: 1980 HEPATITIS B (1 of 3 - 3-dose series) HEPATITIS B (1 of 3 - 3-dose series) [facility] Start: 1980 Hepatitis B Vaccine (1 of 3 - 3-dose series) Hepatitis B Vaccine (1 of 3 - 3-dose series) [facility] Start: 1980 Hepatitis B Vaccines (1 of 3 - 3-dose series) Hepatitis B Vaccines (1 of 3 - 3-dose series) [facility] Start: 1980 Hepatitis C screening Hepatitis C sc thuy [facility] Phone: Start: 1980 HIV screening HIV Screening [facility] Start: [address]id Panel [facility] Start: 1980 Screening for osteoporosis Bone Density Scan [facility] Start: 1980 Yearly Adult Physical Yearly Adult P hysical [facility] Cardiovascular funct ion eval w/tilt table w/mntr TILT TABLE EVALUATION Cardiology Routine POTS (postural orthostatic tachycardia syndrome) Ordered: 03/09/2022 [facility] Work Phone: Comment on above: Ordered: 03/09/2022 End: 03-05-2024 DXA-AXIAL SKELETON DXA-AXIAL SKELETON Radiology Routine Steroid-induced osteoporosis 1 Occurrences starting 02/04/2023 until 03/05/2024 [facility] Work Phone: Comment on above: 1 Occurrences starti ng 02/04/2023 until 03/05/2024 End: 03-05-2024 DXA-FOREARM SKELETON DXA-FOREARM SKELETON Radiology Routine Steroid-induced osteoporosis 1 Occurrences starting 02/04/2023 until 03/05/2024 [facility] Work Phone: Comment on above: 1 Occurrences starti ng 02/04/2023 until 03/05/2024 ECG 12 Lead ECG 12 Lead ECG Routine Irregular heart rate 06/09/2023 8:[address] [facility] Work Phone: End: 03-09-2023 HOME SLEEP APNEA TEST (HSAT) HOME SLEEP APNEA TEST (HSAT) Procedures Routine Somnolence, daytime Snoring 1 Occurrences starting 03/09/2022 until 03/09/2023 [facility] Work Phone: Comment on above: 1 Occurrences starti ng 03/09/2022 until 03/09/2023 Oxygen therapy [[facility] Data Set] Initiate Oxygen Therapy Protocol Respiratory Care Routine Daily until discontinued starting 10/07/2020 [facility] Work Phone: Comment on above: Daily until disconti nued starting 10/07/2020 End: 03-04-2023 Polysomnogram POLYSOMNOGRAM (PSG) Procedures Routine Somnolence, daytime Snoring 1 Occurrences starting 03/04/2022 until 03/04/2023 [facility] Work Phone: Comment on above: 1 Occurrences starti ng 03/04/2022 until 03/04/[address] [facility] Immunizations Immunization Date Immunization Notes Care Provider Fa cility 02-23-2023 COVID-19 vaccine, ag e 12+ yr, 2022- season (PFIZER-BIONTECH) Lynne Ni MD Work Phone: [facility] Payers Date Payer Category Payer Self-pay 2017 Unknown [employer] [id number] 2017-Present [address] [place] [address] [id number] 2009 Medicaid [employer] [id number] 2009-Present [phone] [address] [place] [address] Medicaid [id number] 2009 Medicaid [id number]. [id number] 1980 Unknown [id number] 1980 Unknown [id number] 2.16.840.1.846591.3.579.2.175 1980 Unknown [id number] 2.16.840.1.793510.3.579.2.593 1980 Unknown [id number] 2.16.840.1.022135.3.579.2.593 1980 Unknown [id number] 2.16.840.1.809711.3.579.2.593 1980 Unknown [id number] 2.16.840.1.168975.3.579.2.593 1980 Unknown [id number] 2.16.840.1.510960.3.579.2.593 1980 Unknown [id number] 2.16.840.1.646370.3.579.2.593 1980 Unknown [id number] 2.16.840.1.814515.3.579.2.593 1980 Unknown [id number] 2.16.840.1.685951.3.579.2.593 1980 Unknown [id number] 2.16.840.1.647213.3.579.2.59 1980 Unknown [id number] 2.16.840.1.925510.3.579.2.593 1980 Unknown [id number] 2.16.840.1.706762.3.579.2.1259 1980 Unknown [id number] 2.16.840.1.039313.3.579.2.9 1980 Unknown [id number] 2.16.840.1.644487.3.579.2.9 1980 Unknown [id number] 2.16.840.1.007830.3.579.2.9 1980 Unknown [id number] 2.16.840.1.655827.3.579.2.1244 1959 Unknown [id number] 1959 Unknown [id number] Unknown [id number] [id number] Social History Date Type Detail Facility Start: 10-07-2020 End: 06-09-2023 Tobacco smoking status DCIS Current every day smoker [facility] Start: 10-07-2020 End: 06-09-2023 Tobacco use and exposure Never used [employer] Start: 10-07-2020 Alcohol intake Lifetime non-d claudia (finding) [employer] Work Phone: Start: 10-07-2020 History SDOH Alcohol Frequency 1 [employer] Phone: Start: 1980 Sex Assigned At Not on file [employer] Phone: Start: 02-22-2022 End: 06-09-2023 Exposure to SARS-CoV-2 (event) Not sure [employer] History of tobacco use Cigarette Smoker [facility] Start: 05-31-2014 End: 06-09-2023 Cigarettes smoked current (pack per day) - Reported 1 [facility] Start: 10-24-2021 End: 04-26-2023 Alcohol intake Current non-drinker of alcohol (finding) [facility] Start: 10-14-2021 End: 10-24-2021 Exposure to SARS-CoV-2 (event) Unable to assess [facility] Start: 10-22-2022 End: 06-09-2023 Sex Assigned At [facility] Adult Depression Screening Assessment 1 [facility] Clinical Notes 05-31-2014 to 06-15-2023 Michelle Britton APRN-ORTHOPEDIC TECHNICIAN - 06/09/2023 8:30 AM ESTPatient InstructionsChristie Phan MD - 05/26/2023 5:00 PM ESTTelephone Encounter - Renate Lawrence MA - 04/26/2023 5:26 PM ESTPatient Instructions Note Date & Type Note [facility] 06-15-2023 Note [facility] 06-10-2023 Note [facility] 06-09-2023 History of Presen t illness Narrative Jones Haley is a 42 y.o. female that presents to the office today for new patient evaluation as self referral for palpitations and elevated heart rates. She has a PMH of HTN, HLD, tachycardia, anemia, JOSE RAFAEL with CPAP compliance, lupus, autonomic dysfunction, arthritis, chronic back pain. She has undergone cardiac workup in the past in [place] as noted below. She also states that she follows with Neurology for possible POTS syndrome. Admits to daily tobacco use, 1 pack of cigarettes per day. Denies vaping, ETOH, recreational drugs. Admits to drinking approximately 1 pot of coffee per day. Denies daily exercise. 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 Family history [...] , Rfl: ergocalciferol (Vitamin D-2) 1.25 MG (19331 UT) capsule, Take 1 capsule (50,000 Units) [...] Anemia, unspecified Anxiety Autonomic dysfunction Depression, recurrent ([facility]/HCC) Discoid lupus erythematosus Chronic bilateral low back pain with bilateral sciatica Hyperlipidemia Obesity, Class III, BMI 40-49.9 (morbid obesity) (CMS/[facility]) Obstructive sleep apnea syndrome Arthritis Tachycardia Vitamin [...] prepare this document. documented in this encounter [facility] Work Phone: 06-01-2023 Note [facility] 05-26-2023 Note [facility] 05-26-2023 Instructions Christie Phan MD - 05/26/2023 5:43 PM EST Images from the original note were not included. https://[employer]/emmau-bolgayese/ https://nutritionstudies.org/ho y-zk-uyyufbgad-entcgrea-ma-ljia i-z-yisyj-irbb-ccscf-yubzt-life style/ https://www.Tiempo Development.c om/blog/plantbasedkids https://Actiwave/p invk-xtuxd-pqbr-for-kids/ https://Power2Switch.Altobridge/how-t c-irztxjulxd-izbb-rwtw-cl-w-randee wf-ccldj-wkuh/ WHAT TO EAT? Breakfast: Overnight Oats Base ingredients: 1/3 cup rolled oats, 1/3 cup plain almond milk, 1tsp kyle seeds. Optional add-ins: cinnamon, flax seeds, honey or maple syrup, nut butter, chopped nuts. Toppings: Any fresh fruit chopped. Mix together and place in refrigerator. Can make 5 at a time for the whole week. Homemade fresh oatmeal. Can also make in the crockpot. Central African muffin/almond butter topped with fresh berries Central African muffin, cooked egg/egg white, tomato, thin slice nepalese cheese Fresh berries, hard boiled egg, whole wheat toast Plain yogurt topped with berries, unsalted nuts, drizzle of honey Whole grain toast/Central African muffin topped with mashed avocado and tomatoes Lunch: Dinner leftovers packed in Tupperware, side of fruit Salad mixture topped with a protein (chick breast/tuna/hard boiled egg/beans), dressing and side of fruit Dinner - Refer to plate senior media planner pictures to help select foods and portion ratios of protein, vegetables/starches. Keep it simple and rotate your favorite meals. Sheet nix meals Soups Grilled protein/vegetables/side of starch (plate senior media planner picture) Stir can with protein, mixed vegetables, and riced cauliflower or portion controlled whole grain rice. Make your own bowls - Yi/Tajik/ theme [place] with Zoodles (spiralized vegetable noodles). Roasted vegetable wraps Alter traditional recipes to reflect HIGH QUALITY ingredients in the right QUANTITIES. Snacks - portion controlled: Raw veggies (can have with hummus, mashed avocado, salsa). Unsalted nuts Fruit (1 serving). (optional side of peanut butter) Air pop popcorn [place] and low fat nepalese cheese rolled up String cheese Protein balls (mix rolled oats, nut butter, flax seeds, dash almond milk). Beverages: Water Coffee, Hot tea Unsweetened ice tea EATING OUT: Research menu online, include nutritional information. Make your order decision before getting to restaurant. Stick to recommended portions (plate senior media planner picture). Ask for substitutions or modifications. [...] baked potato, sprouted grain bread, chick peas https://www.HiConversion/[place] le[place]o/2853679/mediterranean-diet- vkdi-mio-nrjwyzvdq/ https://www.HiConversion/[employer]/4274/quhtzoravrpzx-nnvs-je nter/ https://www.HiConversion/[employer]/4300/vbxfbbmrgmjsy-cwta-wx al-plans/ My current favorite cookbooks are documented in this encounter [facility] 05-26-2023 History of Presen t illness Narrative Images from the original note were not included. [facility] Follow-Up Appointment [...] WELLNESS; Future F/U: 3 months SUBJECTIVE: Jones Haley is a 42 year old [...] the date of the service which included xbas-xy-rmba patient care, completing clinical documentation, performing a medically appropriate examination, counseling and educating the patient/family/caregiver, and ordering medications, tests, or procedures. Christie Phan MD, MA, [facility] Lifestyle Medicine Specialist documented in this encounter [facility] 05-19-2023 Note [facility] 04-26-2023 Note [facility] 04-26-2023 Miscellaneous Notes Medication pending with new pharmacy information. documented in this encounter [facility] 04-26-2023 History of Presen t illness Narrative Images from the original note were not included. [facility] Virtual Follow-Up [...] the date of the service which included fqjm-rn-zhvw patient care, completing clinical documentation, performing a medically appropriate examination, counseling and educating the patient/family/caregiver, and ordering medications, tests, or procedures. I have communicated my name and active licensure. The patient's identity and physical location were verified at the time of this visit. Either the patient or their legal disability representative has been informed of the risks and benefits of -- and alternatives to -- treatment through a remote evaluation and consents to proceed with the evaluation remotely. Christie Phan MD, MA, [facility] Lifestyle Medicine Specialist documented in this encounter [facility] 04-26-2023 Note [facility] 04-26-2023 Nurse Note Spoke to Jones Haley, confirmed patient is registered on v2 Ratings and is prepared for their appointment. Confirmed the patient has updated medications, allergies, and questionnaires via v2 Ratings. Informed patient if there is an issue with the connection, provider will send the patient a secure link. If provider is running late, patient should remain connected to the visit. Patient verbalized understanding. documented in this encounter [facility] 04-22-2023 Miscellaneous Notes Pt called for Iron results; possible need for transfusion. Pt aware no need for iron infusion at this time. Enma Hamm RN documented in this encounter [facility] 04-16-2023 Note [facility] 04-16-2023 Note HNO ID: [id number] Author: Kenzie Shannon Service: ? Author Type: ? Type: Progress Notes Filed: 04/16/2023 11:10 AM Note Text: Patient Identification confirmed: yes. Injection given and documented on JUL per provider order. Kenzie Shannon [facility] 04-16-2023 History of Presen t illness Narrative Patient Identification confirmed: yes. Injection given and documented on MAR per provider order. Kenzie Shannon documented in this encounter [facility] 04-01-2023 Note [facility] 03-19-2023 Note HNO ID: [id number] Author: Kenzie Shannon Service: ? Author Type: ? Type: Progress Notes Filed: 03/19/2023 11:22 AM Note Text: Patient Identification confirmed: yes. Injection given and documented on MAR per provider order. Kenzie Shannon [facility] 03-19-2023 History of Presen t illness Narrative Patient Identification confirmed: yes. Injection given and documented on MAR per provider order. Kenzie Shannon documented in this encounter [facility] 03-16-2023 Note [facility] 03-16-2023 History of Presen t illness Narrative CMN RECEIVED BY [facility] VIA FAX, COMPLETED, AND PLACED IN PROVIDER MAILBOX FOR SIGNATURE On March 16, 2023 By Marija Ziegler Casino Controller II. [employer] SENDING CMN: JOSH SIGNED AND DATED CMN, FAXED TO [employer] & CONFIRMATION PAGE RECEIVED: 03.24.23 documented in this encounter [facility] 03-11-2023 Note [facility] 03-11-2023 History of Presen t illness Narrative [...] In Department: RHEUMATOLOGY documented in this encounter [facility] 03-10-2023 Miscellaneous Notes Spoke with patient. We stopped her trulicity because of side effects. She only took the cymbalta for a week. She will restart and we will see how she is doing in 2 months. Have also ordered insulin labs to check for insulin resistance. documented in this encounter [facility] 03-01-2023 Miscellaneous Notes For chart: Eye exam 02/26/23 no ocular complication related to medication. Received eye exam from [facility] Placed on your desk for review. documented in this encounter [facility] 02-19-2023 Note [facility] 02-19-2023 Nurse Note Patient Identification confirmed: yes. Injection given and documented on JUL per provider order. Radha Schofield MA documented in this encounter [facility] 02-19-2023 Instructions Jose Najera MD - 02/19/2023 11:40 AM EDT B12 shot today and every 4 weeks. Continue Folic acid. Follow up in 8 Weeks - labs 1 week before. documented in this encounter [facility] 02-19-2023 History of Presen t illness Narrative Images from the original note were not included. AMBULATORY TELEPHONE VISIT Jones Haley has consented to this telephone encounter. Persons Present: Patient and myself Chief Complaint/Reason: Anemia; To review recent blood work. HPI: Total Time Spent: 21 minutes Wilmer Driver APRN.ORTHOPEDIC TECHNICIAN NAME: Jones Haley CLINIC NO.: [id number] DATE OF SERVICE: February 19, 2023 ([place]) [...] lower lip done 2 days ago at [facility] - awaiting results. B12 helps especially at [...] She follows with multiple doctors including and barrel endshake adjuster, crate tier, filer helper and PCP. She has been told they [...] which included preparing to see the patient, fglq-wb-dabw patient care, completing clinical documentation, performing a medically appropriate examination, counseling and educating the patient/family/caregiver, ordering medications, tests, or procedures, and independently interpreting results (not separately reported). Jose Najera MD, CPE [facility] On[facility] Provided at: [place], [place] CC: Madelaine Ferris MD [id number] [id number] documented in this encounter [facility] 02-16-2023 Miscellaneous Notes Notify patient medication sent [...] RAYRAY INJECTION TEACHING 03/11/2023 7:30 AM [facility] VIDEO SPEC EST 08/12/2023 9:00 [facility] Last Ophthalmology Check for Plaquenil (Hydroxychloroquine) [...] Vitamin D deficiency documented in this encounter [facility] 02-08-2023 Miscellaneous Notes Spoke with patient Will get labs done when she does labs in Dec for Dre/Onc Mailed orders for DXA to pt so she can go to [facility] Pre cert [place] Scheduled Teaching visit for 4 weeks out to give time for ins and to receive medication. Will edison if not auth or received Scheduled [address] Ni in 6 mo Mirela Carlos February 08, 2023 11:15 AM Please call and schedule nonfasting labs 04/2023 Due for bone mineral density (1st time) patient requests order for [place] Please schedule follow up office visit for [...] Lynne Ni MD documented in this encounter [facility] 02-04-2023 Note [facility] 02-04-2023 Note [facility] 02-04-2023 Note [facility] 02-04-2023 Note [facility] 02-04-2023 Note [facility] 02-04-2023 History of Presen t illness Narrative [facility] received prescription(s) for Benlysta from Dr. Ni. Benefits investigation was conducted, indicating that a prior authorization is required by patients plan with [facility]. Encounter will be updated once prior authorization has been submitted by [facility]. Carlene Rendon CPhT [facility], Inflammatory P: [phone] F: [phone] documented in this encounter [facility] 02-04-2023 History of Presen t illness Narrative [...] visit. Either the patient or their legal disability representative has been informed of the risks [...] neurology/on metoprolol for POTs, avoid aggravating triggers, custodial pain recommendations per primary care provider/pain clinic/patient [...] Due for eye exam. Labs sent to [facility]/completed in 06/2021 (no results faxed to office, but patient pulled up results on her phone). Chronic current pain in neck, flank area, mid back, knees, legs, arms, all over pain. Better with lyrica 75mg 3times a day. Reports pain 4-12/31. Couple hrs AM stiffness. COVID vaccine AddMyBest 09/28/20, 10/19/20, 05/26/21. Feels safe at home. 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 RECOMMENDATION/PLAN: [facility] [employer] on 02/04/23 DXA-AXIAL SKELETON DXA-FOREARM SKELETON Reviewed [...] (200mg) daily with a meal Please see meal room hand every 6-12months while on Hydroxychloroquine. 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 No Is this visit related to Workers' Compensation? No Do you need an cattle rancher? No [facility] MYCHART ZOOM MESSAGE Question 02/02/2023 10:32 [...] or = 5) documented in this encounter [facility] 02-04-2023 Instructions Lynne Ni MD - 02/04/2023 [...] (200mg) daily with a meal Please see meal room hand every 6-12months while on Hydroxychloroquine. 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 daily [...] touching your toes, sit-ups, using row machine 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 marine oil terminal pain recommendations per primary care provider/pain clinic [...] usual activities immediately. documented in this encounter [facility] 01-26-2023 Miscellaneous Notes patient has viewed the iloho message per [employer]. Please Call patient if [employer]2 [employer]ings note not read to review results/released to My Chart if tests completed at [facility]: mildly high normal wbc- will monitor. Mildly [...] Lynne Ni MD documented in this encounter [facility] 01-22-2023 Nurse Note Patient Identification confirmed: yes. Injection given and documented on JUL per provider order. Radha Schofield MA documented in this encounter [facility] 01-12-2023 Miscellaneous Notes Patient needs appointment before I can refill. Patient's request for medication is as follows: Requested Prescriptions Pending Prescriptions Disp Refills dulaglutide (TRULICITY) 1.5 mg/0.5 mL pen injector 2 mL 0 Sig: Inject 1.5 mg subcutaneously one time a week. Please approve the above prescription(s) to electronically send to [facility] pharmacy. Milagro Mendiola MA documented in this encounter [facility] 01-01-2023 Note [facility] 01-01-2023 History of Presen t illness Narrative VIRTUAL VISIT PROGRESS NOTE This is a virtual visit using v2 Ratings video visit. It required patient-provider interaction for the medical decision making as documented below. I have communicated my name and active licensure. The patient's identity and physical location were verified at the time of this visit. Either the patient or their legal disability representative has been informed of the risks [...] otitis or sinusitis No pneumonia She sees crate tier and was diagnosed with lupus She is on Plaquenil, 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 Prednisone 10mg once daily for the past year; every few months she gets treated with higher doses of prednisone for flares of her symptoms The medications seem to help the body aches She saw the cabinetmaker apprentice Treated with B12 and folic acid We [...] Misty Nelson MD documented in this encounter [facility] 12-18-2022 Note [facility] 12-18-2022 Miscellaneous Notes Spoke with patient this morning, 12/18/2022. Wilmer Driver APRN.TRUE Pt called investigation division captain service last evening stating she was suppose to have a phone call with Wilmer at 330 and never received a call. Pt is still waiting (536 pm 12/17/22). Please advise Lidia Argueta RN documented in this encounter [facility] 12-18-2022 History of Presen t illness Narrative [...] Total Time Spent: 21 minutes Wilmer Driver APRN.ORTHOPEDIC TECHNICIAN NAME: Jose Carlosfrancisco javierJones CLINIC NO.: [id number] DATE OF SERVICE: October 22, 2022 (Marquis) [...] lower lip done 2 days ago at [facility] - awaiting results. B12 helps especially at [...] She follows with multiple doctors including and barrel endshake adjuster, crate tier, filer helper and PCP. She has been told they [...] ECOG PERFORMANCE STATUS: 0 PHYSICAL EXAMINATION: Vitals: [facility] 02/26/2022 There is no height or weight [...] which included preparing to see the patient, [id number] patient care, completing clinical documentation, performing a medically appropriate examination, counseling and educating the patient/family/caregiver, ordering medications, tests, or procedures, and independently interpreting results (not separately reported). Jose Najera MD, CPE Hematology and Oncology Services Provided at: [place], [place] CC: Madelaine Ferris MD [facility] [address] documented in this encounter [facility] 12-16-2022 Miscellaneous Notes Pt notified and verbalizes understanding. Clerical: Please change tomorrow's appointment to a phone visit at the end of Wilmer's day. Preferred number is [phone]. In addition, pt will be in next 12/25/22 @ 1130 for her B12 shot. Please add her to the MA schedule. Thanks! Pamella Bettencourt, RN That would be okay. Have her added at the end of the day. Thanks, Wilmer Driver APRN.ORTHOPEDIC TECHNICIAN Pt is scheduled for w/ Wilmer & B12 tomorrow. She would like to make this a telephone appointment instead and come back next week for B12. Pt had her labs drawn last week. Wilmer: Any objections to meeting w/ pt over the phone tomorrow or would you prefer we switch her to Mason's schedule? Pamella Bettencourt RN documented in this encounter [facility] 12-13-2022 Miscellaneous Notes No clinical utility or [...] Enma Hamm RN documented in this encounter [facility] 11-24-2022 Miscellaneous Notes Please call patient Thank [...] Lynne Ni MD documented in this encounter [facility] 11-19-2022 Nurse Note Patient Identification confirmed: yes. Injection given and documented on JUL per provider order. Margret Cuenca documented in this encounter [facility] 10-29-2022 Note [facility] 10-22-2022 Note [facility] 10-22-2022 Nurse Note Patient Identification confirmed: yes. Injection given and documented on JUL per provider order. Stacy Gutiérrez Ma documented in this encounter [facility] 10-22-2022 Instructions Jose Najera MD - 10/22/2022 11:43 AM EDT B12 Shot today and every 4 weeks. Continue Folic acid. Follow up in 8 Weeks - labs 1 week before. documented in this encounter [facility] 10-22-2022 History of Presen t illness Narrative Images from the original note were not included. NAME: Jones Haley CLINIC NO.: [id number] DATE OF SERVICE: October 22, 2022 (Marquis) [...] lower lip done 2 days ago at [facility] - awaiting results. B12 helps especially at [...] She follows with multiple doctors including and barrel endshake adjuster, crate tier, filer helper and PCP. She has been told they [...] which included preparing to see the patient, lynb-kr-[id number] patient care, completing clinical documentation, performing a medically appropriate examination, counseling and educating the patient/family/caregiver, ordering medications, tests, or procedures, and independently interpreting results (not separately reported). Jose Najera MD, CPE Hematology and Oncology Services Provided at: [place], [place] CC: Madelaine Ferris MD [address] [facility] [address] documented in this encounter [facility] 09-24-2022 Nurse Note Patient Identification confirmed: yes. Injection given and documented on JUL per provider order. Stacy Gutiérrez Ma documented in this encounter [facility] 09-11-2022 Note HNO ID: [id number] Author: Joselito Joshi Service: ? Author Type: ? Type: Progress Notes Filed: 09/11/2022 9:10 AM Note Text: Called patient and patient stated she will call back and schedule. Joselito Joshi [facility] 09-08-2022 Miscellaneous Notes Pharmacy-Reviewed Medication History Patient Name:.Jones Haley : 1980 Patient Contact Attempt: First attempt Adherence Packing Program Accepted? No, patient does not wish to participate. Patient is not eligible for adherence packaging because PCP is not within [facility]. Patient wishes to continue at [facility] since medication bottles will look the same and then she can pick-up the medications when she needs them. Stacy Hernandez September 08, 2022 2:28 PM [facility] [phone] documented in this encounter [facility] 09-07-2022 Note [facility] 09-07-2022 History of Presen t illness Narrative Images from the original note were not included. [facility] Virtual Follow-Up [...] which included preparing to see the patient, niew-tl-mfkj patient care, completing clinical documentation, performing a medically appropriate examination, counseling and educating the patient/family/caregiver, ordering medications, tests, or procedures, and communicating with other HCPs (not separately reported). I have communicated my name and active licensure. The patient's identity and physical location were verified at the time of this visit. Either the patient or their legal disability representative has been informed of the risks and benefits of -- and alternatives to -- treatment through a remote evaluation and consents to proceed with the evaluation remotely. Christie Phan MD, MA, [facility] Lifestyle Medicine Specialist documented in this encounter [facility] 09-07-2022 Nurse Note Called pt to do intake for video visit pt unavailable lft vm msg sent my chart. Milagro Mendiola MA documented in this encounter [facility] 08-31-2022 Miscellaneous Notes called [facility] pharmacy - pharmacy had 1 refill remaining no action needed from our office documented in this encounter [facility] 08-27-2022 Note [facility] 08-27-2022 Nurse Note Patient Identification confirmed: yes. Injection given and documented on JUL per provider order. Stacy Gutiérrez Ma documented in this encounter [facility] 08-27-2022 History of Presen t illness Narrative Images from the original note were not included. NAME: Jones Haley [facility] NO.: [id number] DATE OF SERVICE: August 27, 2022 (Bob) [...] no cough Updated Visit, August 27, 2022: Jonse Haley returns for follow-up and B12 injection. She has missed a few B12 injections. She follows with multiple doctors including and barrel endshake adjuster, crate tier, filer helper and PCP. She has been told they [...] stomach other (Crohn's [Other]) Mother Wilmer Bob, PRACTICE ADVISOR.ORTHOPEDIC TECHNICIAN Hematology and Oncology Services Provided at: [place], [place] CC: Madelaine Ferris MD [address] [facility] [address] I spent a total of 30 minutes on the date of the service which included preparing to see the patient, ujfa-yy-agwy patient care, completing clinical documentation, obtaining and/or reviewing separately obtained history, performing a medically appropriate examination, counseling and educating the patient/family/caregiver, ordering medications, tests, or procedures, independently interpreting results (not separately reported), and communicating results to the patient/family/caregiver. documented in this encounter [facility] 08-19-2022 Miscellaneous Notes -noted MyChart message read by patient 08/19/22 . Last read by Jones Haley at 3:33 PM on 08/19/2022 Please Call patient if MyChart note not read to review results/released to My Chart if tests completed at F: Improved/ mildly high normal inflammatory test- will monitor. Improved/mildly low vitamin b12- take over the counter 4831-0628 mcg daily. Improved/ normal rest of rheum [...] Lynne Ni MD documented in this encounter [facility] 08-18-2022 Miscellaneous Notes MC read by patient. [...] Lynne Ni MD documented in this encounter [facility] 08-10-2022 Miscellaneous Notes [facility] requesting refill, patient never started according to the chart and I have not seen her in follow-up. [facility] Pharmacy request for the following refill(s): Requested Prescriptions Pending Prescriptions Disp Refills DULoxetine (CYMBALTA) 20 mg capsule [Pharmacy Med Name: DULOXETINE HCL DR 20 MG CAP] 30 capsule 2 Sig: TAKE 1 CAPSULE BY MOUTH ONCE DAILY Please review and advise. Jami Everett Cma documented in this encounter [facility] 07-27-2022 Instructions Timmy Heck APRN.ORTHOPEDIC TECHNICIAN - 07/27/2022 9:12 PM EST Images from the original note were not included. Your most recent body mass index (BMI) that we have on record is 40.56 kg/m2. Obstructive sleep apnea (JOSE RAFAEL) worsens with an increase in weight; reduction in weight may improve or resolve your JOSE RAFAEL. If you are not already seeking treatment, there are resources available at the [facility] such as a nutrition consultation or referral to weight management programs at our [facility]. Please let us know if we can assist with a referral. - Continue CPAP at 5-15 cmH2O. - Remember to clean your mask and equipment regularly, as directed. - You should be eligible for new supplies approximately every 3-6 months, depending on your insurance coverage. Contact your [employer] (DME) company for new supplies. [...] the central scheduling system for the [facility] at [phone]. Smartsheet now offers direct scheduling for patients to schedule appointments. Virtual visits are also available. If not covered by your insurance, there is a 35% discount. Please contact your insurance to determine coverage. Call the office at [phone], option #5 for questions. documented in this encounter [facility] 07-27-2022 Note [facility] 07-27-2022 History of Presen t illness Narrative Images from the original note were not included. [facility] Virtual Visit Follow up/ [...] will have a prescription sent to a [employer] company - [facility] who will be calling you in the next 1-2 weeks or so. Please call them directly or us if you do not hear from them in this time frame. - Will request formal mask fitting - You should be eligible for new supplies approximately every 3-6 months, depending on your insurance coverage. - If your mask doesn't fit well, call the [employer] company before 30 days are up to [...] to ensure the best time for you. [facility] on 04/13/22 CONSULT TO SLEEP MEDICINE - ADULT CPAP/BIPAP/OTHER PAP THERAPY ORDER Lawanda Miranda MD Interval history : Here for follow up for sleep apnea management. SLEEP APNEA Sleep apnea type : JOSE RAFAEL Most Recent Apnea-Hypopnea Index (AHI): 5.3 Treatment : PAP therapy DME: Josh Seo DME fax: [phone] DME ph: [phone] PAP History: Current PAP settin-15 cm H2O. [...] or near accidents due to drowsy drivin [place] Sleepiness Scale 04/12/2022 07/23/2022 Score 4 (No [...] tests, or procedures. documented in this encounter [facility] 07-24-2022 Miscellaneous Notes Patient called today. : [...] patient specific tasks. documented in this encounter [facility] 07-22-2022 Miscellaneous Notes [employer] message sent documented in this encounter [facility] 05-20-2022 History of Presen t illness Narrative Patient Identification confirmed: yes. Injection given and documented on JUL per provider order. Kenzie Shannon documented in this encounter [facility] 05-20-2022 Miscellaneous Notes Addended by: JOSE NAJERA on: 05/20/2022 02:27 PM Modules accepted: Orders documented in this encounter [facility] 05-20-2022 Instructions Jose Najera MD - 05/20/2022 2:23 PM EST B12 Shot Today and every 4 weeks Get fit for CPAP mask and setting this 05/28/2021 Continue Folic acid. RTC in 8 Weeks - labs 1 week before. documented in this encounter [facility] 05-20-2022 History of Presen t illness Narrative Images from the original note were not included. NAME: Jones Haley CLINIC NO.: [id number] DATE OF SERVICE: May 20, 2022 (Marquis) [...] which included preparing to see the patient, neqf-lc-derh patient care, completing clinical documentation, performing a medically appropriate examination, counseling and educating the patient/family/caregiver, ordering medications, tests, or procedures, and independently interpreting results (not separately reported). Jose Najera MD, CPE Hematology and Oncology Services Provided at: [place], [place] CC: Jose Najera [address] [place] [address] [place] [address] Madelaine Ferris MD, [address] [place] [address] CC: Madelaine Ferris MD [address] [place], [place] [id number] documented in this encounter [facility] 05-05-2022 Miscellaneous Notes Faxed order, office notes, demographics, and sleep study to: DME name: Josh Seo DME fax: [phone] DME ph: [phone] Confirmation received. documented in this encounter [facility] 05-05-2022 Miscellaneous Notes [employer] message sent documented in this encounter [facility] 05-05-2022 Miscellaneous Notes [facility] received your PAP order. Due to a major Epic! recall and manufacturing shortage, we are unable to fulfill the request to provide your patient with a CPAP/BIPAP machine at this time. We will keep the request on file and provide when inventory is available or you can forward the order to another DME provider such as [facility], [employer] or [employer]. Caring for our patients is our top priority and we apologize for this delay. Thank you for your patience during this time. [phone] #1 documented in this encounter [facility] 04-24-2022 Miscellaneous Notes After review of Jones's referral, it was determined that the visit needed to be in person to allow for detailed physical exam for connective tissue disorder evaluation. I called today to discuss her concerns about in-person visit for connective tissue disorder evaluation. She did not report hypermobility, however, she noted that her allergy doctor has noted concern for EDS. Her crate tier has told her that she has Lupus. Based on her history, I noted we can offer in-person evaluations for herself and/or her son to see if any genetic testing may be useful. I validated and provided support on the difficulty with her ambulation and transport concerns. I noted [facility] does not have other locations and only available at [address] [place]. I offered social work and/or transport assistance for the visit. She declined this and will discuss with her regarding the transport. She verbalized understanding the reasons for in-person evaluation recommended. She has the [facility] line and will call to reschedule for an in-person evaluation at [facility]. Luann Lance MD Civil Engineering Assistant, Associate Staff [facility] documented in this encounter [facility] 04-22-2022 Miscellaneous Notes Reached out to Jones [...] copy of the report. Confirmed patient's email [email or web address] Eliza Licea Genetic Counselor Group Fitness Department Head documented in this encounter [facility] 03-31-2022 Miscellaneous Notes [facility] pharmacy electronically requests the following refill(s) Requested Prescriptions Pending Prescriptions Disp Refills DULoxetine (CYMBALTA) 20 mg capsule [Pharmacy Med Name: DULOXETINE HCL DR 20 MG CAP] 30 capsule 2 Sig: TAKE 1 CAPSULE BY MOUTH ONCE DAILY Renate Lawrence MA documented in this encounter [facility] 03-30-2022 Miscellaneous Notes LVM and sent MyChart regarding Dr. Nelson's directive. Please see mychart message. Please contact patient and confirm that she has not previously received pneumovax. If not, then she should receive the pneumovax (can be done through her PCP if she prefers). She would need post-vaccination labs with us after at least 6 weeks. Thanks. Misyt Nelson MD documented in this encounter [facility] 03-30-2022 Miscellaneous Notes LVM and sent MyChart regarding Dr. Nelson's directive. documented in this encounter [facility] 03-18-2022 Instructions Jose Najera MD - 03/18/2022 11:16 AM EDT Referral for sleep study pending Start on Folic acid. RTC in 8 Weeks - labs 1 week before. documented in this encounter [facility] 03-18-2022 History of Presen t illness Narrative Images from the original note were not included. NAME: Jones Haley CLINIC NO.: [id number] DATE OF SERVICE: March 18, 2022 (Marquis) [...] which included preparing to see the patient, wzcw-mq-[id number] patient care, completing clinical documentation, performing a medically appropriate examination, counseling and educating the patient/family/caregiver, ordering medications, tests, or procedures, and independently interpreting results (not separately reported). Jose Najera MD, CPE Hematology and Oncology Services Provided at: [place], [place] CC: Madelaine Ferris MD [address] [facility] [address] documented in this encounter [facility] 03-10-2022 History of Presen t illness Narrative VIRTUAL VISIT PROGRESS NOTE This is a virtual visit using v2 Ratings video visit. It required patient-provider interaction for [...] the HR increases again She sees a knitted goods shaper in [place] PCP is running the Holter and echo [...] but was not pursued yet Lives in [place] She did have LN biopsy in the [...] Misty Nelson MD documented in this encounter [facility] 03-09-2022 History of Past i llness Narrative Problem Noted Date Diagnosed Date Resolved Date Obesity, Class II, BMI 35-39.9 03/09/2022 03/10/2023 Obesity (BMI 30-39.9) 05/31/20142016 documented as of this encounter (statuses as of 03/10/2023) [address] History of Past illness Narrative* Problem Noted Date Diagnosed Date Resolved Date Obesity, Class II, BMI 35-39.9 03/09/2022 03/10/2023 Obesity (BMI 30-39.9) 05/31/20142016 documented as of this encounter (statuses as of 03/11/2023) [address] History of Past illness Narrative* Problem Noted Date Diagnosed Date Resolved Date Obesity, Class II, BMI 35-39.9 03/09/2022 03/10/2023 Obesity (BMI 30-39.9) 05/31/20142016 documented as of this encounter (statuses as of 03/19/2023) [address]17-2022 History of Past illness Narrative* Problem Noted Date Diagnosed Date Resolved Date Obesity, Class II, BMI 35-39.9 03/09/2022 03/10/2023 Obesity (BMI 30-39.9) 05/31/20142016 documented as of this encounter (statuses as of 03/24/2023) [address]17-[address]22 History of Past illness Narrative* Problem Noted Date Diagnosed Date Resolved Date Obesity, Class II, BMI 35-39.9 03/09/2022 03/10/2023 Obesity (BMI 30-39.9) 05/31/20142016 documented as of this encounter (statuses as of 04/16/2023) [address]17-2022 History of Past illness Narrative* Problem Noted Date Diagnosed Date Resolved Date Obesity, Class II, BMI 35-39.9 03/09/2022 03/10/2023 Obesity (BMI 30-39.9) 05/31/20142016 documented as of this encounter (statuses as of 04/23/2023) [address]17-2022 History of Past illness Narrative* Problem Noted Date Diagnosed Date Resolved Date Obesity, Class II, BMI 35-39.9 03/09/2022 03/10/2023 Obesity (BMI 30-39.9) 05/31/20142016 documented as of this encounter (statuses as of 04/27/2023) [facility] History of Past illness Narrative* Problem Noted Date Diagnosed Date Resolved Date Obesity, Class II, BMI 35-39.9 03/09/2022 03/10/2023 Obesity (BMI 30-39.9) 05/31/20142016 documented as of this encounter (statuses as of 04/27/2023) [facility] History of Past illness Narrative* Problem Noted Date Diagnosed Date Resolved Date Obesity, Class II, BMI 35-39.9 03/09/2022 03/10/2023 Obesity (BMI 30-39.9) 05/31/20142016 documented as of this encounter (statuses as of 05/31/2023) [facility] Instructions* Patient Instructions* Christie Phan MD - 03/09/2022 12:47 PM EDT Check EKG for prolonged QT. If normal, I would try going back on the Lexapro, can recheck an EKG inabout a month to make sure that things are going ok. (I'm leaving this, but we are changing to Cymbalta) Tilt Table Test [email or web address] [facility] History of Present illness Narrative* Christie Phan MD - 03/09/2022 12:08 PM EDT Images from the original note were not included. 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 [facility] Miscellaneous Notes* Telephone Encounter - Krista Braswell [...] accordingly. Lynne Ni MD [facility] Instructions* Patient Instructions* Jose Najera MD - 03/04/2022 11:42 AM EDT Labs today. Referral for sleep study. RTC in 2 weeks. Consider immunology referral. Referral to lifestyle medicine [facility] History of Present illness Narrative* Jose Najera MD - 03/04/2022 11:19 AM EDT Images from the original note were not included. NAME: Jose Carlosfrancisco javierJones [facility] NO[facility] [id number] DATE OF SERVICE: March 04, 2022 Referring [...] 2 weeks. Consider immunology referral. Referral to [facility] HPI: CASE HISTORY: Currently 2021 ongoing [...] which included preparing to see the patient, [id number] patient care, completing clinical documentation, obtaining and/or reviewing separately obtained history, performing a medically appropriate examination, counseling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 Contac t Referred To Contact Cardiology Diagnoses Irregular heart rate Procedures Holter Or Event Release Engineer Michelle Britton APRN-CNP [address] [facility] [address] [place] [address] Referral ID Status Reason Start Date Expiration Date V isits Requested Visits Authorized Pending Review 06/09/2023 06/08/2024 1 1 * CV Imaging (Routine) - Pending Review Specialty Diagnoses / Procedures Referred By Contac t Referred To Contact Cardiology Diagnoses Irregular heart rate Obstructive sleep apnea syndrome Procedures Transthoracic Echo (TTE) Complete DC ECHO TTHRC R-T 2D W/WOM-MODE COMPL SPEC&COLR D Michelle Britton APRN-CNP [address] [facility] [address] [place] [address] Referral ID Status Reason Start Date Expiration Date Visits Requested Visits Authorized Pending Review Perform Procedure 06/09/2023 06/08/2024 1 1 * Cardiovascular (Routine) - Authorized Specialty Diagnoses / Procedures Referred By Contac t Referred To Contact Diagnoses Irregular heart rate Procedures ECG 12 Lead Michelle Britton APRN-CNP [address] [facility] [address] [place] [address] Referral ID Status Reason Start Date Expiration Date V isits Requested Visits Authorized [id number] Authorized 06/09/2023 06/08/[address] 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 ACP-Advance Directive ACP-Power of Band Manager Latest Code Status on File Code Status Date Activated Date Inactivated Comments Full Code 10/07/2020 8:32 AM Documents on File Type Date Recorded 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 Advance Directive(s) 09/13/2015 8:36 AM Reason for Referral Specialty Diagnoses / Procedures Referred By Contac t Referred To Contact Diagnoses Obesity, Class III, BMI 40-49.9 (morbid obesity) (HCC) Pre-diabetes Christie Pahn MD [address] [place] [address] Referral ID Status Reason Start Date Expiration Date Visits Re quested Visits Authorized [id number] Closed 1 1 Specialty Diagnoses / Procedures Referred By Contac t Referred To Contact Diagnoses Wound healing, delayed Procedures CONSULT TO MEDICAL GENETICS - GENERAL OFFICE/OUTPATIENT [facility] 60-74 MINUTES MEDICAL GENETICS COUNSELING EACH 30 MINUTES Misty Nelson MD [facility] [place] [id number] [facility] Medicine [place] [address] [place] [id number] Referral ID Status Reason Start Date Expiration Date Visits Requested Visits Authorized [id number] Authorized PCP Requested Referral Auto-Generate d Referral 2 03/10/2023 1 1 Specialty Diagnoses / Procedures Referred By Contac t Referred To Contact Neurology Diagnoses POTS (postural orthostatic tachycardia syndrome) Procedures CONSULT TO NEUROLOGY OFFICE/OUTPATIENT [facility] 60-74 MINUTES Christie Phan MD [address] [place] [address] Referral ID Status Reason Start Date Expiration Date Visits Requested Visits Authorized [id number] Authorized PCP Requested Referral 2 03/12/2023 1 1 Specialty Diagnoses / Procedures Referred By Contac t Referred To Contact Immunology Diagnoses Raised level of immunoglobulins Procedures CONSULT TO IMMUNOLOGY OFFICE/OUTPATIENT [facility] 60-74 MINUTES Christie Phan MD [address] [place] [phone] Referral ID Status Reason Start Date Expiration Date V isits Requested Visits Authorized [id number] Closed PCP Requested Referral 03/09/2022 03/09/2023 1 1 Specialty Diagnoses / Procedures Referred By Contac t Referred To Contact [facility] Diagnoses Somnolence, daytime Snoring Procedures HOME SLEEP APNEA TEST (HSAT) SLEEP STD AIRFLOW HRT RATE&O2 SAT EFFORT UNATT Christie Phan MD [address] [place] [address] Neurological [place] [place] [address] Referral ID Status Reason Start Date Expiration Date Visits Requested Visits Authorized [id number] Authorized Auto-Generat ed Referral 2 03/09/2023 1 1 Specialty Diagnoses / Procedures Referred By Nahid t Referred To Contact Diagnoses Somnolence, daytime Chronic fatigue and malaise Obesity, unspecified classification, unspecified obesity type, unspecified whether serious comorbidity present Procedures CONSULT TO LIFESTYLE MEDICINE MD OFFICE/OUTPATIENT [facility] 60-74 MINUTES Jose Najera MD [address] [place] [address] [place] [address] Referral ID Status Reason Start Date Expiration Date V isits Requested Visits Authorized [id number] Closed PCP Requested Referral 03/04/2022 03/04/2023 1 1 Specialty Diagnoses / Procedures Referred By Nahid t Referred To Contact Diagnoses Somnolence, daytime Snoring Procedures CONSULT TO SLEEP MEDICINE - ADULT OFFICE/OUTPATIENT [facility] 60-74 MINUTES Jose Najera MD [address] [place] [address] [place] [address] Referral ID Status Reason Start Date Expiration Date Visits Requested Visits Authorized [id number] Authorized PCP Requested Referral 2 03/04/2023 1 [...] section and content) DATE CREATED AUTHOR 09/20/[address] [facility] ital DATE CREATED AUTHOR AUTHOR'S ORGANIZ ATION 09/23/2018 [facility] DATE CREATED AUTHOR AUTHOR'S ORGANIZ ATION 12/10/2018 [facility] DATE CREATED AUTHOR AUTHOR'S ORGANIZ ATION 01/13/2019 [facility] DATE CREATED AUTHOR AUTHOR'S ORGANIZ ATION 06/28/[address] [facility] DATE CREATED AUTHOR AUTHOR'S ORGANIZ ATION 10/01/2022 [facility] DATE CREATED AUTHOR AUTHOR'S ORGANIZ ATION 06/02/2023 [facility] EPIC DATE CREATED AUTHOR AUTHOR'S ORGANIZ ATION 06/10/2023 [facility] DATE CREATED AUTHOR AUTHOR'S ORGANIZ ATION 06/18/2023 [facility] Reason for Visit (unrecogniz ed section and content) Status Reason Specialty Diagnoses / Procedures Referre d By Contact [facility]erred [facility] Reason Comments Pain ongoing generalized pain. Reason [...] HIGH MDM 60-74 MINUTES Jose Najera MD [address] [place] [address] [place] [address] Referral ID Status Reason Start Date Expiration Date V isits Requested Visits Authorized [id number] Closed PCP Requested Referral 03/04/2022 03/04/2023 1 1 Reason Comments High Total serum IgM Anemia Reason Comments Consult Specialty Diagnoses / Procedures Referred By Contac t Referred To Contact Immunology Diagnoses Raised level of immunoglobulins Procedures CONSULT TO IMMUNOLOGY OFFICE/OUTPATIENT NEW HIGH MDM 60-74 MINUTES Christie Phan MD [address] [place] [phone] Referral ID Status Reason Start Date Expiration Date V isits Requested Visits Authorized [id number] Closed PCP Requested Referral 03/09/2022 03/09/2023 1 1 Reason Comments Pneumovax Reason Comments Refill Request Reason Comments 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 Reason Comments Future Appointment Scheduling [...] rate Procedures ECG 12 Lead Michelle Britton, PRACTICE ADVISOR-ORTHOPEDIC TECHNICIAN [address] [facility] [address] [place] [address] Referral ID Status Reason Start Date Expiration Date V isits Requested Visits Authorized [id number] Authorized 06/09/2023 06/08/2024 1 1 Ordered Prescriptions [...] or prosecute any alcohol or drug abuse patient.[facility] the event this information is protected by the Federal Confidentiality of Alcohol and Drug Abuse Patient Records regulations: The Federal rules restrict any use of the information to criminally investigate or prosecute any alcohol or drug abuse patient.[facility] the event this information is protected by the Federal Confidentiality of Alcohol and Drug Abuse Patient Records regulations: The Federal rules restrict any use of the information to criminally investigate or prosecute any alcohol or drug abuse patient.[facility] HospitalIn the event this information is protected by the Federal Confidentiality of Alcohol and Drug Abuse Patient Records regulations: The Federal rules restrict any use of the information to criminally investigate or prosecute any alcohol or drug abuse patient.[facility] HospitalIn the event this information is protected by the Federal Confidentiality of Alcohol and Drug Abuse Patient Records regulations: The Federal rules restrict any use of the information to criminally investigate or prosecute any alcohol or drug abuse patient.[facility] HospitalIn the event this information is protected by the Federal Confidentiality of Alcohol and Drug Abuse Patient Records regulations: The Federal rules restrict any use of the information to criminally investigate or prosecute any alcohol or drug abuse patient.[facility] HospitalIn the event this information is protected by the Federal Confidentiality of Alcohol and Drug Abuse Patient Records regulations: The Federal rules restrict any use of the information to criminally investigate or prosecute any alcohol or drug abuse patient.[facility] HospitalIn the event this information is protected by the Federal Confidentiality of Alcohol and Drug Abuse Patient Records regulations: The Federal rules restrict any use of the information to criminally investigate or prosecute any alcohol or drug abuse patient.[facility] HospitalIn the event this information is protected by the Federal Confidentiality of Alcohol and Drug Abuse Patient Records regulations: The Federal rules restrict any use of the information to criminally investigate or prosecute any alcohol or drug abuse patient.[facility] HospitalIn the event this information is protected by the Federal Confidentiality of Alcohol and Drug Abuse Patient Records regulations: The Federal rules restrict any use of the information to criminally investigate or prosecute any alcohol or drug abuse patient.[facility] HospitalIn the event this information is protected by the Federal Confidentiality of Alcohol and Drug Abuse Patient Records regulations: The Federal rules restrict any use of the information to criminally investigate or prosecute any alcohol or drug abuse patient.[facility] HospitalIn the event this information is protected by the Federal Confidentiality of Alcohol and Drug Abuse Patient Records regulations: The Federal rules restrict any use of the information to criminally investigate or prosecute any alcohol or drug abuse patient.[facility] HospitalIn the event this information is protected by the Federal Confidentiality of Alcohol and Drug Abuse Patient Records regulations: The Federal rules restrict any use of the information to criminally investigate or prosecute any alcohol or drug abuse patient.[facility] HospitalIn the event this information is protected by the Federal Confidentiality of Alcohol and Drug Abuse Patient Records regulations: The Federal rules restrict any use of the information to criminally investigate or prosecute any alcohol or drug abuse patient.[facility] HospitalIn the event this information is protected by the Federal Confidentiality of Alcohol and Drug Abuse Patient Records regulations: The Federal rules restrict any use of the information to criminally investigate or prosecute any alcohol or drug abuse patient.[facility] HospitalIn the event this information is protected by the Federal Confidentiality of Alcohol and Drug Abuse Patient Records regulations: The Federal rules restrict any use of the information to criminally investigate or prosecute any alcohol or drug abuse patient.[facility] HospitalIn the event this information is protected by the Federal Confidentiality of Alcohol and Drug Abuse Patient Records regulations: The Federal rules restrict any use of the information to criminally investigate or prosecute any alcohol or drug abuse patient.[facility] HospitalIn the event this information is protected by the Federal Confidentiality of Alcohol and Drug Abuse Patient Records regulations: The Federal rules restrict any use of the information to criminally investigate or prosecute any alcohol or drug abuse patient.[facility] HospitalIn the event this information is protected by the Federal Confidentiality of Alcohol and Drug Abuse Patient Records regulations: The Federal rules restrict any use of the information to criminally investigate or prosecute any alcohol or drug abuse patient.[facility] HospitalIn the event this information is protected by the Federal Confidentiality of Alcohol and Drug Abuse Patient Records regulations: The Federal rules restrict any use of the information to criminally investigate or prosecute any alcohol or drug abuse patient.[facility] HospitalIn the event this information is protected by the Federal Confidentiality of Alcohol and Drug Abuse Patient Records regulations: The Federal rules restrict any use of the information to criminally investigate or prosecute any alcohol or drug abuse patient.[facility] HospitalIn the event this information is protected by the Federal Confidentiality of Alcohol and Drug Abuse Patient Records regulations: The Federal rules restrict any use of the information to criminally investigate or prosecute any alcohol or drug abuse patient.[facility] HospitalIn the event this information is protected by the Federal Confidentiality of Alcohol and Drug Abuse Patient Records regulations: The Federal rules restrict any use of the information to criminally investigate or prosecute any alcohol or drug abuse patient.[facility] HospitalIn the event this information is protected by the Federal Confidentiality of Alcohol and Drug Abuse Patient Records regulations: The Federal rules restrict any use of the information to criminally investigate or prosecute any alcohol or drug abuse patient.[facility] HospitalIn the event this information is protected by the Federal Confidentiality of Alcohol and Drug Abuse Patient Records regulations: The Federal rules restrict any use of the information to criminally investigate or prosecute any alcohol or drug abuse patient.[facility] HospitalIn the event this information is protected by the Federal Confidentiality of Alcohol and Drug Abuse Patient Records regulations: The Federal rules restrict any use of the information to criminally investigate or prosecute any alcohol or drug abuse patient.[facility] HospitalIn the event this information is protected by the Federal Confidentiality of Alcohol and Drug Abuse Patient Records regulations: The Federal rules restrict any use of the information to criminally investigate or prosecute any alcohol or drug abuse patient.[facility] HospitalIn the event this information is protected by the Federal Confidentiality of Alcohol and Drug Abuse Patient Records regulations: The Federal rules restrict any use of the information to criminally investigate or prosecute any alcohol or drug abuse patient.[facility] the event this information is protected by the Federal Confidentiality of Alcohol and Drug Abuse Patient Records regulations: The Federal rules restrict any use of the information to criminally investigate or prosecute any alcohol or drug abuse patient.[facility] HospitalIn the event this information is protected by the Federal Confidentiality of Alcohol and Drug Abuse Patient Records regulations: The Federal rules restrict any use of the information to criminally investigate or prosecute any alcohol or drug abuse patient.[facility] HospitalIn the event this information is protected by the Federal Confidentiality of Alcohol and Drug Abuse Patient Records regulations: The Federal rules restrict any use of the information to criminally investigate or prosecute any alcohol or drug abuse patient.[facility] HospitalIn the event this information is protected by the Federal Confidentiality of Alcohol and Drug Abuse Patient Records regulations: The Federal rules restrict any use of the information to criminally investigate or prosecute any alcohol or drug abuse patient.[facility] HospitalIn the event this information is protected by the Federal Confidentiality of Alcohol and Drug Abuse Patient Records regulations: The Federal rules restrict any use of the information to criminally investigate or prosecute any alcohol or drug abuse patient.[facility] HospitalIn the event this information is protected by the Federal Confidentiality of Alcohol and Drug Abuse Patient Records regulations: The Federal rules restrict any use of the information to criminally investigate or prosecute any alcohol or drug abuse patient.[facility] HospitalIn the event this information is protected by the Federal Confidentiality of Alcohol and Drug Abuse Patient Records regulations: The Federal rules restrict any use of the information to criminally investigate or prosecute any alcohol or drug abuse patient.[facility] HospitalIn the event this information is protected by the Federal Confidentiality of Alcohol and Drug Abuse Patient Records regulations: The Federal rules restrict any use of the information to criminally investigate or prosecute any alcohol or drug abuse patient.[facility] HospitalIn the event this information is protected by the Federal Confidentiality of Alcohol and Drug Abuse Patient Records regulations: The Federal rules restrict any use of the information to criminally investigate or prosecute any alcohol or drug abuse patient.[facility] HospitalIn the event this information is protected by the Federal Confidentiality of Alcohol and Drug Abuse Patient Records regulations: The Federal rules restrict any use of the information to criminally investigate or prosecute any alcohol or drug abuse patient.[facility] HospitalIn the event this information is protected by the Federal Confidentiality of Alcohol and Drug Abuse Patient Records regulations: The Federal rules restrict any use of the information to criminally investigate or prosecute any alcohol or drug abuse patient.[facility] HospitalIn the event this information is protected by the Federal Confidentiality of Alcohol and Drug Abuse Patient Records regulations: The Federal rules restrict any use of the information to criminally investigate or prosecute any alcohol or drug abuse patient.[facility] HospitalIn the event this information is protected by the Federal Confidentiality of Alcohol and Drug Abuse Patient Records regulations: The Federal rules restrict any use of the information to criminally investigate or prosecute any alcohol or drug abuse patient.[facility] HospitalIn the event this information is protected by the Federal Confidentiality of Alcohol and Drug Abuse Patient Records regulations: The Federal rules restrict any use of the information to criminally investigate or prosecute any alcohol or drug abuse patient.[facility] HospitalIn the event this information is protected by the Federal Confidentiality of Alcohol and Drug Abuse Patient Records regulations: The Federal rules restrict any use of the information to criminally investigate or prosecute any alcohol or drug abuse patient.[facility] HospitalIn the event this information is protected by the Federal Confidentiality of Alcohol and Drug Abuse Patient Records regulations: The Federal rules restrict any use of the information to criminally investigate or prosecute any alcohol or drug abuse patient.[facility] HospitalIn the event this information is protected by the Federal Confidentiality of Alcohol and Drug Abuse Patient Records regulations: The Federal rules restrict any use of the information to criminally investigate or prosecute any alcohol or drug abuse patient.[facility] HospitalIn the event this information is protected by the Federal Confidentiality of Alcohol and Drug Abuse Patient Records regulations: The Federal rules restrict any use of the information to criminally investigate or prosecute any alcohol or drug abuse patient.[facility] HospitalIn the event this information is protected by the Federal Confidentiality of Alcohol and Drug Abuse Patient Records regulations: The Federal rules restrict any use of the information to criminally investigate or prosecute any alcohol or drug abuse patient.[facility] HospitalIn the event this information is protected by the Federal Confidentiality of Alcohol and Drug Abuse Patient Records regulations: The Federal rules restrict any use of the information to criminally investigate or prosecute any alcohol or drug abuse patient.[facility] HospitalIn the event this information is protected by the Federal Confidentiality of Alcohol and Drug Abuse Patient Records regulations: The Federal rules restrict any use of the information to criminally investigate or prosecute any alcohol or drug abuse patient.[facility] HospitalIn the event this information is protected by the Federal Confidentiality of Alcohol and Drug Abuse Patient Records regulations: The Federal rules restrict any use of the information to criminally investigate or prosecute any alcohol or drug abuse patient.[facility] HospitalIn the event this information is protected by the Federal Confidentiality of Alcohol and Drug Abuse Patient Records regulations: The Federal rules restrict any use of the information to criminally investigate or prosecute any alcohol or drug abuse patient.[facility] HospitalIn the event this information is protected by the Federal Confidentiality of Alcohol and Drug Abuse Patient Records regulations: The Federal rules restrict any use of the information to criminally investigate or prosecute any alcohol or drug abuse patient.[facility] HospitalIn the event this information is protected by the Federal Confidentiality of Alcohol and Drug Abuse Patient Records regulations: The Federal rules restrict any use of the information to criminally investigate or prosecute any alcohol or drug abuse patient.[facility] HospitalIn the event this information is protected by the Federal Confidentiality of Alcohol and Drug Abuse Patient Records regulations: The Federal rules restrict any use of the information to criminally investigate or prosecute any alcohol or drug abuse patient.[facility] HospitalIn the event this information is protected by the Federal Confidentiality of Alcohol and Drug Abuse Patient Records regulations: The Federal rules restrict any use of the information to criminally investigate or prosecute any alcohol or drug abuse patient.[facility] HospitalIn the event this information is protected by the Federal Confidentiality of Alcohol and Drug Abuse Patient Records regulations: The Federal rules restrict any use of the information to criminally investigate or prosecute any alcohol or drug abuse patient.[facility] HospitalIn the event this information is protected by the Federal Confidentiality of Alcohol and Drug Abuse Patient Records regulations: The Federal rules restrict any use of the information to criminally investigate or prosecute any alcohol or drug abuse patient.[facility] HospitalIn the event this information is protected by the Federal Confidentiality of Alcohol and Drug Abuse Patient Records regulations: The Federal rules restrict any use of the information to criminally investigate or prosecute any alcohol or drug abuse patient.[facility] HospitalIn the event this information is protected by the Federal Confidentiality of Alcohol and Drug Abuse Patient Records regulations: The Federal rules restrict any use of the information to criminally investigate or prosecute any alcohol or drug abuse patient.[facility] HospitalIn the event this information is protected by the Federal Confidentiality of Alcohol and Drug Abuse Patient Records regulations: The Federal rules restrict any use of the information to criminally investigate or prosecute any alcohol or drug abuse patient.[facility] HospitalIn the event this information is protected by the Federal Confidentiality of Alcohol and Drug Abuse Patient Records regulations: The Federal rules restrict any use of the information to criminally investigate or prosecute any alcohol or drug abuse patient.[facility] HospitalIn the event this information is protected by the Federal Confidentiality of Alcohol and Drug Abuse Patient Records regulations: The Federal rules restrict any use of the information to criminally investigate or prosecute any alcohol or drug abuse patient.[facility] HospitalIn the event this information is protected by the Federal Confidentiality of Alcohol and Drug Abuse Patient Records regulations: The Federal rules restrict any use of the information to criminally investigate or prosecute any alcohol or drug abuse patient.[facility] HospitalIn the event this information is protected by the Federal Confidentiality of Alcohol and Drug Abuse Patient Records regulations: The Federal rules restrict any use of the information to criminally investigate or prosecute any alcohol or drug abuse patient.[facility] HospitalIn the event this information is protected by the Federal Confidentiality of Alcohol and Drug Abuse Patient Records regulations: The Federal rules restrict any use of the information to criminally investigate or prosecute any alcohol or drug abuse patient.[facility] HospitalIn the event this information is protected by the Federal Confidentiality of Alcohol and Drug Abuse Patient Records regulations: The Federal rules restrict any use of the information to criminally investigate or prosecute any alcohol or drug abuse patient.[facility] Care Teams (unrecognized sec tion and content) [employer] Laboratory Assistant Relationship Specialty Start Date End Date Gay Enciso, PRACTICE ADVISOR.ORTHOPEDIC TECHNICIAN [address] [place] [address] PCP - General Family Practice 10/24/21 [employer] Laboratory Assistant Relationship Specialty Start Date End Date Gay Enciso, PRACTICE ADVISOR.ORTHOPEDIC TECHNICIAN [address] [place] [address] PCP - General Family Medicine 10/24/21 Madelaine Ferris MD [address] [place] [address] Referring Family Medicine 02/12/22 [employer] Laboratory Assistant Relationship Specialty Start Date End Date Madelaine Ferris MD [address] [facility] [place] [address] PCP - General Family Medicine 02/27/22 Madelaine Ferris MD [address] [facility] [place] [address] Referring Family Medicine 02/12/22 [employer] Laboratory Assistant Relationship Specialty Start Date End Date Madelaine Ferris MD [address] [facility] [place] [address] PCP - General Family Medicine 02/27/22 Madelaine Ferris MD [address] [facility] [place] [address] Referring Family Medicine 02/12/22 [employer] Laboratory Assistant Relationship Specialty Start Date End Date Madelaine Ferris MD [address] [facility] [place] [address] PCP - General Family Medicine 02/27/22 Madelaine Ferris MD [address] [facility] [place] [address] Referring Family Medicine 02/12/22 [employer] Laboratory Assistant Relationship Specialty Start Date End Date Madelaine Ferris MD [address] [facility] [place] [address] PCP - General Family Medicine 02/27/22 Madelaine Ferris MD [address] [facility] [place] [address] Referring Family Medicine 02/12/22 [employer] Laboratory Assistant Relationship Specialty Start Date End Date Madelaine Ferris MD [address] [facility] [place] [address] PCP - General Family Medicine 02/27/22 Madelaine Ferris MD [address] [facility] Referring Family Medicine 02/12/22 [employer] Laboratory Assistant Relationship Specialty Start Date End Date Madelaine Ferris MD [address] [facility] [place] [address] PCP - General Family Medicine 02/27/22 Madelaine Ferris MD [address] [facility] [place] [address] Referring Family Medicine 02/12/22 [employer] Laboratory Assistant Relationship Specialty Start Date End Date Madelaine Ferris MD [address] [facility] [place] [address] PCP - General Family Medicine 02/27/22 Madelaine Ferris MD [address] [facility] [place] [address] Referring Family Medicine 02/12/22 [employer] Laboratory Assistant Relationship Specialty Start Date End Date Madelaine Ferris MD [address] [facility] [place] [address] PCP - General Family Medicine 02/27/22 Madelaine Ferris MD [address] [facility] [place] [address] Referring Family Medicine 02/12/22 [employer] Laboratory Assistant Relationship Specialty Start Date End Date Madelaine Ferris MD [address] [facility] [place] [address] PCP - General Family Medicine 02/27/22 Madelaine Ferris MD [address] [facility] [place] [address] Referring Family Medicine 02/12/22 [employer] Laboratory Assistant Relationship Specialty Start Date End Date Madelaine Ferris MD [address] [facility] [place] [address] PCP - General Family Medicine 02/27/22 Madelaine Ferris MD [address] [facility] [place] [address] Referring Family Medicine 02/12/22 [employer] Laboratory Assistant Relationship Specialty Start Date End Date Madelaine Ferris MD [address] [facility] [place] [address] PCP - General Family Medicine 02/27/22 Madelaine Ferris MD [address] [facility] [place] [address] Referring Family Medicine 02/12/22 [employer] Laboratory Assistant Relationship Specialty Start Date End Date Madelaine Ferris MD [address] [facility] [place] [address] PCP - General Family Medicine 02/27/22 Madelaine Ferris MD [address] [facility] [place] [address] Referring Family Medicine 02/12/22 [employer] Laboratory Assistant Relationship Specialty Start Date End Date Madelaine Ferris MD [address] [facility] [place] [address] PCP - General Family Medicine 02/27/22 Madelaine Ferris MD [address] [facility] [place] [address] Referring Family Medicine 02/12/22 [employer] Laboratory Assistant Relationship Specialty Start Date End Date Madelaine Ferris MD [address] [facility] [place] [address] PCP - General Family Medicine 02/27/22 Madelaine Ferris MD [address] [facility] [place] [address] Referring Family Medicine 02/12/22 [employer] Laboratory Assistant Relationship Specialty Start Date End Date Madelaine Ferris MD [address] [facility] [place] [address] PCP - General Family Medicine 02/27/22 Madelaine Ferris MD [address] [facility] [place] [address] Referring Family Medicine 02/12/22 [employer] Laboratory Assistant Relationship Specialty Start Date End Date Madelaine Ferris MD [address] [facility] [place] [address] PCP - General Family Medicine 02/27/22 Madelaine Ferris MD [address] [facility] [place] [address] Referring Family Medicine 02/12/22 [employer] Laboratory Assistant Relationship Specialty Start Date End Date Madelaine Ferris MD [address] [facility] [place] [address] PCP - General Family Medicine 02/27/22 Madelaine Ferris MD [address] [facility] [place] [address] Referring Family Medicine 02/12/22 [employer] Laboratory Assistant Relationship Specialty Start Date End Date Madelaine Ferris MD [address] [facility] [place] [address] PCP - General Family Medicine 02/27/22 Madelaine Ferris MD [address] [facility] [place] [address] Referring Family Medicine 02/12/22 [employer] Laboratory Assistant Relationship Specialty Start Date End Date Madelaine Ferris MD [address] [facility] [place] [address] PCP - General Family Medicine 02/27/22 Madelaine Ferris MD [address] [facility] [place] [address] Referring Family Medicine 02/12/22 [employer] Laboratory Assistant Relationship Specialty Start Date End Date Madelaine Ferris MD [address] [facility] [place] [address] PCP - General Family Medicine 02/27/22 Madelaine Ferris MD [address] [facility] [place] [address] Referring Family Medicine 02/12/22 [employer] Laboratory Assistant Relationship Specialty Start Date End Date Madelaine Ferris MD [address] [facility] [place] [address] PCP - General Family Medicine 02/27/22 Madelaine Ferris MD [address] [facility] [place] [address] Referring Family Medicine 02/12/22 [employer] Laboratory Assistant Relationship Specialty Start Date End Date Madelaine Ferris MD PCP - General Family Medicine 02/27/22 Madelaine Ferris MD Referring Family Medicine 02/12/22 [employer] Laboratory Assistant Relationship Specialty Start Date End Date Madelaine Ferris MD PCP - General Family Medicine 02/27/22 Madelaine Ferris MD Referring Family Medicine 02/12/22 [employer] Laboratory Assistant Relationship Specialty Start Date End Date Madelaine Ferris MD PCP - General Family Medicine 02/27/22 Madelaine Ferris MD Referring Family Medicine 02/12/22 [employer] Laboratory Assistant Relationship Specialty Start Date End Date Madelaine Ferris MD PCP - General Family Medicine 02/27/22 Madelaine Ferris MD Referring Family Medicine 02/12/22 [employer] Laboratory Assistant Relationship Specialty Start Date End Date Madelaine Ferris MD PCP - General Family Medicine 02/27/22 Madelaine Ferris MD Referring Family Medicine 02/12/22 [employer] Laboratory Assistant Relationship Specialty Start Date End Date Madelaine Ferris MD PCP - General Family Medicine 02/27/22 Madelaine Ferris MD Referring Family Medicine 02/12/22 [employer] Laboratory Assistant Relationship Specialty Start Date End Date Madelaine Ferris MD PCP - General Family Medicine 02/27/22 Madelaine Ferris MD Referring Family Medicine 02/12/22 [employer] Laboratory Assistant Relationship Specialty Start Date End Date Madelaine Ferris MD PCP - General Family Medicine 02/27/22 Madelaine Ferris MD Referring Family Medicine 02/12/22 [employer] Laboratory Assistant Relationship Specialty Start Date End Date Madelaine Ferris MD PCP - General Family Medicine 02/27/22 Madelaine Ferris MD Referring Family Medicine 02/12/22 [employer] Laboratory Assistant Relationship Specialty Start Date End Date Madelaine Ferris MD PCP - General Family Medicine 02/27/22 Madelaine Ferris MD Referring Family Medicine 02/12/22 [employer] Laboratory Assistant Relationship Specialty Start Date End Date Madelaine Ferris MD PCP - General Family Medicine 02/27/22 Madelaine Ferris MD Referring Family Medicine 02/12/22 [employer] Laboratory Assistant Relationship Specialty Start Date End Date Madelaine Ferris MD PCP - General Family Medicine 02/27/22 Madelaine Ferris MD Referring Family Medicine 02/12/22 [employer] Laboratory Assistant Relationship Specialty Start Date End Date Madelaine Ferris MD PCP - General Family Medicine 02/27/22 Madelaine Ferris MD Referring Family Medicine 02/12/22 [employer] Laboratory Assistant Relationship Specialty Start Date End Date Madelaine Ferris MD PCP - General Family Medicine 02/27/22 Madelaine Ferris MD Referring Family Medicine 02/12/22 [employer] Laboratory Assistant Relationship Specialty Start Date End Date Madelaine Ferris MD PCP - General Family Medicine 02/27/22 Madelaine Ferris MD Referring Family Medicine 02/12/22 [employer] Laboratory Assistant Relationship Specialty Start Date End Date Madelaine Ferris MD PCP - General Family Medicine 02/27/22 Madelaine Ferris MD Referring Family Medicine 02/12/22 [employer] Laboratory Assistant Relationship Specialty Start Date End Date Madelaine Ferris MD PCP - General Family Medicine 02/27/22 Madelaine Ferris MD Referring Family Medicine 02/12/22 [employer] Laboratory Assistant Relationship Specialty Start Date End Date Madelaine Ferris MD PCP - General Family Medicine 02/27/22 Madelaine Ferris MD Referring Family Medicine 02/12/22 [employer] Laboratory Assistant Relationship Specialty Start Date End Date Madelaine Freris MD PCP - General Family Medicine 02/27/22 Madelaine Ferris MD Referring Family Medicine 02/12/22 [employer] Laboratory Assistant Relationship Specialty Start Date End Date Madelaine Ferris MD PCP - General Family Medicine 02/27/22 Madelaine Ferris MD Referring Family Medicine 02/12/22 [employer] Laboratory Assistant Relationship Specialty Start Date End Date Madelaine Ferris MD PCP - General Family Medicine 02/27/22 Madelaine Ferris MD Referring Family Medicine 02/12/22 [employer] Laboratory Assistant Relationship Specialty Start Date End Date Madelaine Ferris MD PCP - General Family Medicine 02/27/22 Madelaine Ferris MD Referring Family Medicine 02/12/22 [employer] Laboratory Assistant Relationship Specialty Start Date End Date Madelaine Ferris MD PCP - General Family Medicine 02/27/22 Madelaine Ferris MD Referring Family Medicine 02/12/22 [employer] Laboratory Assistant Relationship Specialty Start Date End Date Madelaine Ferris MD PCP - General Family Medicine 02/27/22 Madelaine Ferris MD Referring Family Medicine 02/12/22 [employer] Laboratory Assistant Relationship Specialty Start Date End Date Madelaine Ferris MD PCP - General Family Medicine 02/27/22 Madelaine Ferris MD Referring Family Medicine 02/12/22 [employer] Laboratory Assistant Relationship Specialty Start Date End Date Madelaine Ferris MD PCP - General Family Medicine 02/27/22 Madelaine Ferris MD Referring Family Medicine 02/12/22 [employer] Laboratory Assistant Relationship Specialty Start Date End Date Charles Mitchell DO [address] [place] [address] PCP - General 10/22/18 Michelle Britton, PRACTICE ADVISOR-ORTHOPEDIC TECHNICIAN [address] [place] [address] [address] [place] [address] Nurse Practitioner Cardiology 06/08/23 FOR RECORDS PERTAINING [...] BE BASED ON THE PRIMARY CLINICAL RECORDS. [facility] [employer] provides no warranty or guarantee of the accuracy or completeness of information in this document.
--- OUTSIDE RECORDS SUMMARY | 2023-06-28 18:56 | XMS_ITS | CCD ---
Author Name Unknown Address [address] [facility] [address] [place] [address] Organization [facility] Care Team Providers Care [employer] Field Roustabout Name Role Phone VICTOR MANUEL GUZMAN Referring Unavailable Bettina Jiménez Admitting Unavailable Bettina Jiménez Attending Unavailable Lui Salomon Primary Care Unavailable Unavailable Primary Care Provider UnavailJAREN Stuart Referring Unavailable Britt [employer]IGH [employer]CHO[employer] TUTOR.TRUE, Gay Primary Care Provider Mirela Kelsey Unavailable Britt HIGH SCHOOL TUTOR.TREU, Gay Primary Care Provider [phone] Madelaine Ferris MD Unavailable Madelaine Ferris MD Primary Care Provider [phone] Madelaine Ferris MD Unavailable Madelaine Ferris MD Primary Care Provider [phone] Madelaine Ferris MD Unavailable Madelaine Ferris MD Primary Care Provider [phone] MADELAINE LEYVA Primary Care Unavailable MISC, DR SMITH Consulting Unavailable MISC, DR SMITH Attending Unavailable MISC, DR SMITH Admitting Unavailable MADELAINE GOMEZ Consulting Unavailable ENID aHrris, DR GALLEGOS Consulting Unavailable ENID ., DR [...] Attending Unavailable PARMJIT ., MICKY Admitting Unavailable MILFORD, DR AURORA Pacheco Consulting Unavailable HOY ., [...] Primary Care Provider Michelle Washington Unavailable MICHELLE BRITOTN Attending Unavailable CHARLES MITCHELL Primary Care Unavailab [...] Sulfamethoxazole / Trimethoprim Drug Allergy 10-08-19 21 [facility] (20 sources) Codeine; Translations: [CODEINE] Drug Allergy 05-31-19 15 Other: See Comments [facility] (20 sources) Latex; Translations: [LATEX] Drug Allergy 05-31-19 15 Rash [facility] (20 sources) Sulfamethoxazole; Translations: [SULFAMETHOXAZOLE] Drug Allergy 05-31-19 15 GI Upset [facility] (20 sources) Clindamycin; Translations: [CLINDAMYCIN] Drug Allergy 03-04-20 22 Unknown [facility] (4 sources) Sulfamethoxazole / Trimethoprim Drug Allergy lymph swelling [place] Other (20 sources) Doxycycline; Translations: [DOXYCYCLINE] Drug Allergy 01-20-20 22 Other: See Comments, Other, Unknown [facility] (20 sources) Sulfamethoxazole / Trimethoprim; Translations: [SULFAMETHOXAZOLE-T RIMETHOPRIM] Drug Allergy 02-24-20 16 Swelling, Other [facility] (20 sources) Trimethoprim; Translations: [TRIMETHOPRIM] Drug Allergy 01-20-20 22 Other: See Comments [facility] (1 source) Latex Drug allergy (disorder) 10-04-19 16 [facility] (1 source) Sulfamethoxazole / Trimethoprim Drug Allergy 02-24-20 16 [facility] Medications Current Medications Medication Drug [...] other organ involvement (HCC) , 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 skilled nursing 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 TAKE 3 TABLETS BY MOUTH DAILY WITH FOOD. HOLD IF ON ANTIBIOTICS OR ILL. 90 tablet 3 02/16/2023 Active Start: 08-19-2022 End: 11-24-2022 take 2 tablets by mouth once daily at mealtime azaTHIOprine (IMURAN) 50 mg tablet Indications: Other systemic lupus erythematosus with other organ involvement (HCC) , 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 skilled nursing 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 Take 2tab daily [...] Start: 04-13-2022 End: 04-26-2023 CPAP/BIPAP/OTHER Indications : JOS ERAFAEL (obstructive sleep apnea) Type .CPAPSettings into a [...] every week ergocalciferol (Vitamin D-2) 1.25 MG (81697 UT) capsule Take 1 capsule (50,000 Units) [...] Active Start: 05-25-2022 take 1 tablet by [facility] twice daily metoprolol tartrate, short acting, [...] Discontinued Start: 01-19-2022 take 1 capsule by [facility] once daily naltrexone capsule 1 mg TAKE [...] on above: TAKE 1 CAPSULE BY [facility] 3 TIMES A DAY FOR 30 DAYS TAKE 1 CAPSULE BY [facility] 3 TIMES A DAY take 1 capsule by [facility] three times a day 1000 ml sodium [...] Comment on above: Take 1 tablet by [facility] two times a day. triamcinolone acetonide [...] on above: Take 1 capsule by [facility] twice daily. VIT/IRON FUMARATE/FA ( VITAMIN [...] Comment on above: [facility] 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) drug therapy] Onset: 03-05-2021 Episodic Other aftercare (20 sources) H/O: high risk medication; Translations: [Other terminal computer operator (current) drug therapy] Onset: 06-15-2022 06-15-2022 Episodic Other aftercare (1 source) Other skilled nursing (current) drug therapy; Translations: [OTH CUSTODIAL 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 THERAPY] Onset: 03-23-2022 Episodic Other aftercare (17 sources) Long-term 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 systemic steroid; Translations: [FCI (current) use of 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] Onset: 02-04-2023 [...] Reference Range Facility CNPDede 06-12-2023 CNPN Normal [facility] 25(OH)D3 Ruthannl-Salazar 2023 25-hydroxyvitamin D3 [Mass/Vol] 17.3 ng/mL Low 31.0-80.0 [facility] Comment on above: Order Comment: Speci men Type: BLOOD SPECIMENOrdering Facility: [facility] Address: [address] [place] [address] Result Comment: Clas sification of 25 [place] Vitamin D status:Deficiency/Insufficiency: < or = 30 ng/ml.Sufficiency/Optimal Levels: 31-80 ng/mLToxicity: > 100 ng/mL.Test performed by chemiluminescent immunoassay. Performed By: #### 1 989-3 ####[facility] LABCLIA [id number] [address] [place] OF [facility] CBC panel Auto (Bld)on 06-10 Erythrocyte distribution width (RBC) [Ratio] 14.5 % Normal 11.5-15.0 [facility] Comment on above: Order Comment: Speci men Type: BLOOD SPECIMENOrdering Facility: [facility] Address: [address] [place] [address] Performed By: #### 5 8410-2 ####[facility] LABCLIA [id number] [place] [address] Hematocrit (Bld) [Volume fraction] 43.1 % Normal 36.0-46.0 [facility] Comment on above: Order Comment: Speci men Type: BLOOD SPECIMENOrdering Facility: [facility] Address: [address] [place] [address] Performed By: #### 5 8410-2 ####[facility] LABCLIA [id number] [place] [address] Hemoglobin (Bld) [Mass/Vol] 13.9 g/dL Normal 11.5-15.5 [facility] Comment on above: Order Comment: Speci men Type: BLOOD SPECIMENOrdering Facility: [facility] Address: [address] [place] [address] Performed By: #### 5 8410-2 ####[facility] LABCLIA [id number] [place] [address] MCH (RBC) [Entitic mass] 30.6 pg Normal 26.0-34.0 [facility] Comment on above: Order Comment: Speci men Type: BLOOD SPECIMENOrdering Facility: [facility] Address: [address] [place] [address] Performed By: #### 5 8410-2 ####[facility] LABCLIA [id number] [place] [address] MCHC (RBC) [Mass/Vol] 32.3 g/dL Normal 30.5-36.0 [facility] Comment on above: Order Comment: Speci men Type: BLOOD SPECIMENOrdering Facility: [facility] Address: [address] [place] [address] Performed By: #### 5 8410-2 ####[facility] LABIA [id number] [place] [address] MCV (RBC) [Entitic vol] 94.9 fL Normal 80.0-100.0 [facility] Comment on above: Order Comment: Speci men Type: BLOOD SPECIMENOrdering Facility: [facility] Address: [address] [place] [address] Performed By: #### 5 8410-2 ####[facility] LABCLIA [id number] [place] [address] Nucleated RBC (Bld) [#/Vol] 10*3/uL Normal <0.01 [facility] Comment on above: Order Comment: Speci men Type: BLOOD SPECIMENOrdering Facility: [facility] Address: [address] [place] [address] Performed By: #### 5 8410-2 ####[facility] LABCLIA [id number] [place] [address] Platelet mean volume (Bld) [Entitic vol] 9.5 fL Normal 9.0-12.7 [facility] Comment on above: Order Comment: Speci men Type: BLOOD SPECIMENOrdering Facility: [facility] Address: [address] [place] [address] Performed By: #### 5 8410-2 ####[facility] LABCLIA [id number] [place] [address] Platelets (Bld) [#/Vol] 320 10*3/uL Normal 150-400 [facility] Comment on above: Order Comment: Speci men Type: BLOOD SPECIMENOrdering Facility: [facility] Address: [address] [place] [address] Performed By: #### 5 8410-2 ####[facility] LABIA [id number] [place] [address] RBC (Bld) [#/Vol] 4.54 10*6/uL Normal 3.90-5.20 [facility] Comment on above: Order Comment: Speci men Type: BLOOD SPECIMENOrdering Facility: [facility] Address: [address] [place] [address] Performed By: #### 5 8410-2 ####[facility] LABIA [id number] [place] [address] WBC (Bld) [#/Vol] 15.15 10*3/uL High 3.70-11.00 [facility] Comment on above: Order Comment: Speci men Type: BLOOD SPECIMENOrdering Facility: [facility] Address: [address] [place] [address] Performed By: #### 5 8410-2 ####[facility] LABIA [id number] [place] [address] CNNURSEon 06-10-2023 CNNURSE Normal [facility] CNOVSPon 06-10-2023 CNOVSP Normal [facility] CRP SerPl-mCncon 06-10-2023 CRP [Mass/Vol] mg/L Normal <0.9 [facility] Comment on above: Order Comment: Speci men Type: BLOOD SPECIMENOrdering Facility: [facility] Address: [address] [place] [address] Performed By: #### 1 988-5 ####[facility] LABCLIA [id number] [facility] [id number] [address] [facility] Comprehensive metabolic 2000 panelon 06-10-2023 Albumin [Mass/Vol] 4.1 g/dL Normal 3.9-4.9 [facility] Comment on above: Order Comment: Speci men Type: BLOOD SPECIMENOrdering Facility: [facility] Address: [address] [place] [address] Performed By: #### 2 4323-8 ####[facility] LABCLIA [id number] [place] [address] ALP [Catalytic activity/Vol] 72 U/L Normal 34-123 [facility] Comment on above: Order Comment: Speci men Type: BLOOD SPECIMENOrdering Facility: [facility] Address: [address] [place] [address] Performed By: #### 2 4323-8 ####[facility] LABCLIA [id number] [place] [address] ALT [Catalytic activity/Vol] 22 U/L Normal 7-38 [facility] Comment on above: Order Comment: Speci men Type: BLOOD SPECIMENOrdering Facility: [facility] Address: [address] [place] [address] Performed By: #### 2 4323-8 ####[facility] LABCLIA [id number] [place] [address] Anion gap [Moles/Vol] 10 mmol/L Normal 9-18 [facility] Comment on above: Order Comment: Speci men Type: BLOOD SPECIMENOrdering Facility: [facility] Address: [address] [place] [address] Performed By: #### 2 4323-8 ####[facility] LABCLIA [id number] [place] [address] AST [Catalytic activity/Vol] 9 U/L Low 13-35 [facility] Comment on above: Order Comment: Speci men Type: BLOOD SPECIMENOrdering Facility: [facility] Address: [address] [place] [address] Performed By: #### 2 4323-8 ####[facility] LABCLIA [id number] [place] [address] Bilirubin [Mass/Vol] 0.2 mg/dL Normal 0.2-1.3 [facility] Comment on above: Order Comment: Speci men Type: BLOOD SPECIMENOrdering Facility: [facility] Address: [address] [place] [address] Performed By: #### 2 4323-8 ####[facility] LABCLIA [id number] [place] [address] Calcium [Mass/Vol] 9.8 mg/dL Normal 8.5-10.2 [facility] Comment on above: Order Comment: Speci men Type: BLOOD SPECIMENOrdering Facility: [facility] Address: [address] [place] [address] Performed By: #### 2 4323-8 ####[facility] LABCLIA [id number] [place] [address] Chloride [Moles/Vol] 107 mmol/L High 97-105 [facility] Comment on above: Order Comment: Speci men Type: BLOOD SPECIMENOrdering Facility: [facility] Address: [address] [place] [address] Performed By: #### 2 4323-8 ####[facility] LABCLIA [id number] [place] [address] CO2 [Moles/Vol] 24 mmol/L Normal 22-30 [facility] Comment on above: Order Comment: Speci men Type: BLOOD SPECIMENOrdering Facility: [facility] Address: [address] [place] [address] Performed By: #### 2 4323-8 ####[facility] LABCLIA [id number] [place] [address] Creatinine [Mass/Vol] 0.80 mg/dL Normal 0.58-0.96 [facility] Comment on above: Order Comment: Speci men Type: BLOOD SPECIMENOrdering Facility: [facility] Address: [address] [place] [address] Performed By: #### 2 4323-8 ####[facility] LABCLIA [id number] [place] [address] Creatinine and Glomerular filtration rate.predicted panel (S/P/Bld) 94 mL/min/1.73m??? Normal >=60 [facility] Comment on above: Order Comment: Speci men Type: BLOOD SPECIMENOrdering Facility: [facility] Address: [address] [place] [address] Result Comment: Erin mated Glomerular Filtration Rate [...] actual GFR. Performed By: #### 2 4323-8 ####[facility] LABCLIA [id number] [place] [address] Glucose [Mass/Vol] 98 mg/dL Normal 74-99 [facility] Comment on above: Order Comment: Speci men Type: BLOOD SPECIMENOrdering Facility: [facility] Address: [address] [place] [address] Result Comment: The [employer] (ADA) provides guidance for cutoff [...] Standards of Medical Care in Diabetes 2016, [place] [employer]. Diabetes Care. 2016.39(Suppl 1). Performed By: #### 2 4323-8 ####[facility] LABCLIA [id number] [place] [address] Potassium [Moles/Vol] 3.6 mmol/L Low 3.7-5.1 [facility] Comment on above: Order Comment: Speci men Type: BLOOD SPECIMENOrdering Facility: [facility] Address: [address] [place] [address] Performed By: #### 2 4323-8 ####[facility] LABCLIA [id number] [place] [address] Protein [Mass/Vol] 7.0 g/dL Normal 6.3-8.0 [facility] Comment on above: Order Comment: Speci men Type: BLOOD SPECIMENOrdering Facility: [facility] Address: [address] [place] [address] Performed By: #### 2 4323-8 ####[facility] LABCLIA [id number] [place] [address] Sodium [Moles/Vol] 141 mmol/L Normal 136-144 [facility] Comment on above: Order Comment: Speci men Type: BLOOD SPECIMENOrdering Facility: [facility] Address: [address] [place] [address] Performed By: #### 2 4323-8 ####[facility] LABCLIA [id number] [place] [address] Urea nitrogen [Mass/Vol] 17 mg/dL Normal 7-21 [facility] Comment on above: Order Comment: Speci men Type: BLOOD SPECIMENOrdering Facility: [facility] Address: [address] [place] [address] Performed By: #### 2 4323-8 ####[facility] LABCLIA [id number] [place] [address] ESR Westergren method (Bld) [Velocity]on 06-10-2023 ESR (Bld) [Velocity] 28 mm/h High 0-20 [facility] Comment on above: Order Comment: Speci men Type: BLOOD SPECIMENOrdering Facility: [facility] Address: [address] [place] [address] Performed By: #### 4 537-7 ####[facility] LABCLIA [id number] [facility] [id number] [place] [address] [place] CBC W Auto Differential pane l (Bld)on 06-03-2023 Basophils (Bld) [#/Vol] 0.05 10*3/uL Normal <0.11 [facility] Comment on above: Order Comment: Speci men Type: BLOOD SPECIMENOrdering Facility: [facility] Address: [address] [place] [address] Performed By: #### 5 7021-8 ####[facility] LABIA [id number] [place] [address] Basophils/100 WBC (Bld) 0.4 % Normal [facility] Comment on above: Order Comment: Speci men Type: BLOOD SPECIMENOrdering Facility: [facility] Address: [address] [place] [address] Performed By: #### 5 7021-8 ####[facility] LABCLIA [id number] [place] [address] Differential cell count method Nom (Bld) Auto Normal [facility] Comment on above: Order Comment: Speci men Type: BLOOD SPECIMENOrdering Facility: [facility] Address: [address] [place] [address] Performed By: #### 5 7021-8 ####[facility] LABCLIA [id number] [place] [address] Eosinophils (Bld) [#/Vol] 0.14 10*3/uL Normal <0.46 [facility] Comment on above: Order Comment: Speci men Type: BLOOD SPECIMENOrdering Facility: [facility] Address: [address] [place] [address] Performed By: #### 5 7021-8 ####[facility] LABCLIA [id number] [place] [address] Eosinophils/100 WBC (Bld) 1.1 % Normal [facility] Comment on above: Order Comment: Speci men Type: BLOOD SPECIMENOrdering Facility: [facility] Address: [address] [place] [address] Performed By: #### 5 7021-8 ####[facility] LABCLIA [id number] [place] [address] Erythrocyte distribution width (RBC) [Ratio] 14.5 % Normal 11.5-15.0 [facility] Comment on above: Order Comment: Speci men Type: BLOOD SPECIMENOrdering Facility: [facility] Address: [address] [place] [address] Performed By: #### 5 7021-8 ####[facility] LABCLIA [id number] [place] [address] Hematocrit (Bld) [Volume fraction] 40.5 % Normal 36.0-46.0 [facility] Comment on above: Order Comment: Speci men Type: BLOOD SPECIMENOrdering Facility: [facility] Address: [address] [place] [address] Performed By: #### 5 7021-8 ####[facility] LABCLIA [id number] [place] [address] Hemoglobin (Bld) [Mass/Vol] 13.1 g/dL Normal 11.5-15.5 [facility] Comment on above: Order Comment: Speci men Type: BLOOD SPECIMENOrdering Facility: [facility] Address: [address] [place] [address] Performed By: #### 5 7021-8 ####[facility] LABCLIA [id number] [place] [address] Immature granulocytes (Bld) [#/Vol] 0.20 10*3/uL High <0.10 [facility] Comment on above: Order Comment: Speci men Type: BLOOD SPECIMENOrdering Facility: [facility] Address: [address] [place] [address] Performed By: #### 5 7021-8 ####[facility] LABCLIA [id number] [place] [address] Immature granulocytes/100 WBC (Bld) 1.6 % Normal [facility] Comment on above: Order Comment: Speci men Type: BLOOD SPECIMENOrdering Facility: [facility] Address: [address] [place] [address] Performed By: #### 5 7021-8 ####[facility] LABCLIA [id number] [place] [address] Lymphocytes (Bld) [#/Vol] 4.13 10*3/uL High 1.00-4.00 [facility] Comment on above: Order Comment: Speci men Type: BLOOD SPECIMENOrdering Facility: [facility] Address: [address] [place] [address] Performed By: #### 5 7021-8 ####[facility] LABCLIA [id number] [place] [address] Lymphocytes/100 WBC (Bld) 32.1 % Normal [facility] Comment on above: Order Comment: Speci men Type: BLOOD SPECIMENOrdering Facility: [facility] Address: [address] [place] [address] Performed By: #### 5 7021-8 ####[facility] LABCLIA [id number] [place] [address] MCH (RBC) [Entitic mass] 30.8 pg Normal 26.0-34.0 [facility] Comment on above: Order Comment: Speci men Type: BLOOD SPECIMENOrdering Facility: [facility] Address: [address] [place] [address] Performed By: #### 5 7021-8 ####[facility] LABCLIA [id number] [place] [address] MCHC (RBC) [Mass/Vol] 32.3 g/dL Normal 30.5-36.0 [facility] Comment on above: Order Comment: Speci men Type: BLOOD SPECIMENOrdering Facility: [facility] Address: [address] [place] [address] Performed By: #### 5 7021-8 ####[facility] LABCLIA [id number] [place] [address] MCV (RBC) [Entitic vol] 95.1 fL Normal 80.0-100.0 [facility] Comment on above: Order Comment: Speci men Type: BLOOD SPECIMENOrdering Facility: [facility] Address: [address] [place] [address] Performed By: #### 5 7021-8 ####[facility] LABCLIA [id number] [place] [address] Monocytes (Bld) [#/Vol] 0.79 10*3/uL Normal <0.87 [facility] Comment on above: Order Comment: Speci men Type: BLOOD SPECIMENOrdering Facility: [facility] Address: [address] [place] [address] Performed By: #### 5 7021-8 ####[facility] LABCLIA [id number] [place] [address] Monocytes/100 WBC (Bld) 6.1 % Normal [facility] Comment on above: Order Comment: Speci men Type: BLOOD SPECIMENOrdering Facility: [facility] Address: [address] [place] [address] Performed By: #### 5 7021-8 ####[facility] LABCLIA [id number] [place] [address] Neutrophils (Bld) [#/Vol] 7.56 10*3/uL High 1.45-7.50 [facility] Comment on above: Order Comment: Speci men Type: BLOOD SPECIMENOrdering Facility: [facility] Address: [address] [place] [address] Performed By: #### 5 7021-8 ####[facility] LABCLIA [id number] [place] [address] Neutrophils/100 WBC (Bld) 58.7 % Normal [facility] Comment on above: Order Comment: Speci men Type: BLOOD SPECIMENOrdering Facility: [facility] Address: [address] [place] [address] Performed By: #### 5 7021-8 ####[facility] LABCLIA [id number] [place] [address] Nucleated RBC (Bld) [#/Vol] 10*3/uL Normal <0.01 [facility] Comment on above: Order Comment: Speci men Type: BLOOD SPECIMENOrdering Facility: [facility] Address: [address] [place] [address] Performed By: #### 5 7021-8 ####[facility] LABCLIA [id number] [place] [address] Nucleated RBC/100 WBC (Bld) [Ratio] 0.0 /100 WBC Normal [facility] Comment on above: Order Comment: Speci men Type: BLOOD SPECIMENOrdering Facility: [facility] Address: [address] [place] [address] Performed By: #### 5 7021-8 ####[facility] LABCLIA [id number] [place] [address] Platelet mean volume (Bld) [Entitic vol] 9.7 fL Normal 9.0-12.7 [facility] Comment on above: Order Comment: Speci men Type: BLOOD SPECIMENOrdering Facility: [facility] Address: [address] [place] [address] Performed By: #### 5 7021-8 ####[facility] LABCLIA [id number] [place] [address] Platelets (Bld) [#/Vol] 261 10*3/uL Normal 150-400 [facility] Comment on above: Order Comment: Speci men Type: BLOOD SPECIMENOrdering Facility: [facility] Address: [address] [place] [address] Performed By: #### 5 7021-8 ####[facility] LABCLIA [id number] [place] [address] RBC (Bld) [#/Vol] 4.26 10*6/uL Normal 3.90-5.20 [facility] Comment on above: Order Comment: Speci men Type: BLOOD SPECIMENOrdering Facility: [facility] Address: [address] [place] [address] Performed By: #### 5 7021-8 ####[facility] LABCLIA [id number] [place] [address] WBC (Bld) [#/Vol] 12.87 10*3/uL High 3.70-11.00 [facility] Comment on above: Order Comment: Speci men Type: BLOOD SPECIMENOrdering Facility: [facility] Address: [address] [place] [address] Performed By: #### 5 7021-8 ####[facility] LABCLIA [id number] [place] [address] Comprehensive metabolic 2000 panelon 06-03-2023 Albumin [Mass/Vol] 4.0 g/dL Normal 3.9-4.9 [facility] Comment on above: Order Comment: Speci men Type: BLOOD SPECIMENOrdering Facility: [facility] Address: [address] [place] [address] Performed By: #### 2 4323-8 ####[facility] LABCLIA [id number] [place] [address] ALP [Catalytic activity/Vol] 73 U/L Normal 34-123 [facility] Comment on above: Order Comment: Speci men Type: BLOOD SPECIMENOrdering Facility: [facility] Address: [address] [place] [address] Performed By: #### 2 4323-8 ####[facility] LABCLIA [id number] [place] [address] ALT [Catalytic activity/Vol] 21 U/L Normal 7-38 [facility] Comment on above: Order Comment: Speci men Type: BLOOD SPECIMENOrdering Facility: [facility] Address: [address] [place] [address] Performed By: #### 2 4323-8 ####[facility] LABCLIA [id number] [place] [address] Anion gap [Moles/Vol] 10 mmol/L Normal 9-18 [facility] Comment on above: Order Comment: Speci men Type: BLOOD SPECIMENOrdering Facility: [facility] Address: [address] [place] [address] Performed By: #### 2 4323-8 ####[facility] LABCLIA [id number] [place] [address] AST [Catalytic activity/Vol] 10 U/L Low 13-35 [facility] Comment on above: Order Comment: Speci men Type: BLOOD SPECIMENOrdering Facility: [facility] Address: [address] [place] [address] Performed By: #### 2 4323-8 ####[facility] LABCLIA [id number] [place] [address] Bilirubin [Mass/Vol] 0.2 mg/dL Normal 0.2-1.3 [facility] Comment on above: Order Comment: Speci men Type: BLOOD SPECIMENOrdering Facility: [facility] Address: [address] [place] [address] Performed By: #### 2 4323-8 ####[facility] LABCLIA [id number] [place] [address] Calcium [Mass/Vol] 9.6 mg/dL Normal 8.5-10.2 [facility] Comment on above: Order Comment: Speci men Type: BLOOD SPECIMENOrdering Facility: [facility] Address: [address] [place] [address] Performed By: #### 2 4323-8 ####[facility] LABCLIA [id number] [place] [address] Chloride [Moles/Vol] 108 mmol/L High 97-105 [facility] Comment on above: Order Comment: Speci men Type: BLOOD SPECIMENOrdering Facility: [facility] Address: [address] [place] [address] Performed By: #### 2 4323-8 ####[facility] LABCLIA [id number] [place] [address] CO2 [Moles/Vol] 24 mmol/L Normal 22-30 [facility] Comment on above: Order Comment: Speci men Type: BLOOD SPECIMENOrdering Facility: [facility] Address: [address] [place] [address] Performed By: #### 2 4323-8 ####[facility] LABCLIA [id number] [place] [address] Creatinine [Mass/Vol] 0.70 mg/dL Normal 0.58-0.96 [facility] Comment on above: Order Comment: Speci men Type: BLOOD SPECIMENOrdering Facility: [facility] Address: [address] [place] [address] Performed By: #### 2 4323-8 ####[facility] LABIA [id number] [place] [address] Creatinine and Glomerular filtration rate.predicted panel (S/P/Bld) 111 mL/min/1.73m??? Normal >=60 [facility] Comment on above: Order Comment: Speci men Type: BLOOD SPECIMENOrdering Facility: [facility] Address: [address] [place] [address] Result Comment: Erin mated Glomerular Filtration Rate [...] actual GFR. Performed By: #### 2 4323-8 ####[facility] LABCLIA [id number] [place] [address] Glucose [Mass/Vol] 106 mg/dL High 74-99 [facility] Comment on above: Order Comment: Speci men Type: BLOOD SPECIMENOrdering Facility: [facility] Address: [address] [place] [address] Result Comment: The [employer] (ADA) provides guidance for cutoff [...] Standards of Medical Care in Diabetes 2016, [place] [employer]. Diabetes Care. 2016.39(Suppl 1). Performed By: #### 2 4323-8 ####[facility] LABCLIA [id number] [place] [address] Potassium [Moles/Vol] 4.0 mmol/L Normal 3.7-5.1 [facility] Comment on above: Order Comment: Speci men Type: BLOOD SPECIMENOrdering Facility: [facility] Address: [address] [place] [address] Performed By: #### 2 4323-8 ####[facility] LABCLIA [id number] [place] [address] Protein [Mass/Vol] 6.8 g/dL Normal 6.3-8.0 [facility] Comment on above: Order Comment: Speci men Type: BLOOD SPECIMENOrdering Facility: [facility] Address: [address] [place] [address] Performed By: #### 2 4323-8 ####[facility] LABCLIA [id number] [place] [address] Sodium [Moles/Vol] 142 mmol/L Normal 136-144 [facility] Comment on above: Order Comment: Speci men Type: BLOOD SPECIMENOrdering Facility: [facility] Address: [address] [place] [address] Performed By: #### 2 4323-8 ####[facility] LABCLIA [id number] [place] [address] Urea nitrogen [Mass/Vol] 12 mg/dL Normal 7-21 [facility] Comment on above: Order Comment: Speci men Type: BLOOD SPECIMENOrdering Facility: [facility] Address: [address] [place] [address] Performed By: #### 2 4323-8 ####[facility] LABCLIA [id number] [place] [address] ESR Westergren method (Bld) [Velocity]on 06-03-2023 ESR (Bld) [Velocity] 35 mm/h High 0-20 [facility] Comment on above: Order Comment: Speci men Type: BLOOD SPECIMENOrdering Facility: [facility] Address: [address] [place] [address] Performed By: #### 4 537-7 ####[facility] LABCLIA [id number] [place] [address] [place] Ferritin SerPl-mCncon 2023 Ferritin [Mass/Vol] 23.4 ng/mL Normal 14.7-205.1 [facility] Comment on above: Order Comment: Speci men Type: BLOOD SPECIMENOrdering Facility: [facility] Address: [address] [place] [id number] Performed By: #### 5 0190-8, 2132-01, 2275-08, 2283-12 ####[facility] LABCLIA [id number] [address] [address] [place] Folate SerPl-ncon 06-03-19 Folate [Mass/Vol] 8.2 ng/mL Normal >4.7 [facility] Comment on above: Order Comment: Speci men Type: BLOOD SPECIMENOrdering Facility: [facility] Address: [address] [place] [address] Performed By: #### 5 0190-8, 2132-01, 2275-08, 2283-12 ####[facility] LABCLIA [id number] [place] [address] [place] Iron and Iron binding capaci panel 06-03-2023 Iron [Mass/Vol] 67 ug/dL Normal 41-186 [facility] Comment on above: Order Comment: Speci men Type: BLOOD SPECIMENOrdering Facility: [facility] Address: [place] [address] Performed By: #### 5 0190-8, 2132-01, 2275-08, 2283-12 ####[facility] LABCLIA [id number] [place] [id number] [place] Iron binding capacity [Mass/Vol] 395 ug/dL High 232-386 [facility] Comment on above: Order Comment: Speci men Type: BLOOD SPECIMENOrdering Facility: [facility] Address: [address] [place] [address] Performed By: #### 5 0190-8, 2132-01, 2275-08, 2283-12 ####[facility] LABCLIA [id number] [place] [id number] [place] Iron/TIBC [Molar ratio] 17.0 % Normal 15.0-57.0 [facility] Comment on above: Order Comment: Speci men Type: BLOOD SPECIMENOrdering Facility: [facility] Address: [place] [address] Performed By: #### 5 0190-8, 2131-9, 6-4, 8 ####[facility] LABCLIA [id number] [address] [place] Vit B12 [facility] Cobalamin (Vitamin B12) [Mass/Vol] 428 pg/mL Normal 232-1245 [facility] Comment on above: Order Comment: Speci men Type: BLOOD SPECIMENOrdering Facility: [facility] Address: [address] [address] Performed By: #### 5 0190-8, 9, 6-4, 8 ####[facility] LABCLIA [id number] [address] [place] CNNURSEon 05-10-2023 CNNURSE Normal [facility] XR CERVICAL SPINE COMPLETE 4 -5 VIEWSon [...] Normal Not Available CNPNon 04-22-2023 CNPN Normal [facility] CNNURSEon 04-16-2023 CNNURSE Normal [facility] CNOVSPon 04-16-2023 CNOVSP Normal [facility] CBC W Auto Differential pane l (Bld)on 04-09-2023 Basophils (Bld) [#/Vol] 0.05 10*3/uL Normal <0.11 [facility] Comment on above: Order Comment: Speci men Type: BLOOD SPECIMENOrdering Facility: [facility] Address: [address] [place] [address] Performed By: #### 5 7021-8 ####[facility] LABCLIA [id number] [place] [address] Basophils/100 WBC (Bld) 0.5 % Normal [facility] Comment on above: Order Comment: Speci men Type: BLOOD SPECIMENOrdering Facility: [facility] Address: [address] [place] [address] Performed By: #### 5 7021-8 ####[facility] LABCLIA [id number] [place] [address] Differential cell count method Nom (Bld) Auto Normal [facility] Comment on above: Order Comment: Speci men Type: BLOOD SPECIMENOrdering Facility: [facility] Address: [address] [place] [address] Performed By: #### 5 7021-8 ####[facility] LABCLIA [id number] [place] [address] Eosinophils (Bld) [#/Vol] 0.09 10*3/uL Normal <0.46 [facility] Comment on above: Order Comment: Speci men Type: BLOOD SPECIMENOrdering Facility: [facility] Address: [address] [place] [address] Performed By: #### 5 7021-8 ####[facility] LABCLIA [id number] [place] [address] Eosinophils/100 WBC (Bld) 0.9 % Normal [facility] Comment on above: Order Comment: Speci men Type: BLOOD SPECIMENOrdering Facility: [facility] Address: [address] [place] [address] Performed By: #### 5 7021-8 ####[facility] LABCLIA [id number] [place] [address] Erythrocyte distribution width (RBC) [Ratio] 14.8 % Normal 11.5-15.0 [facility] Comment on above: Order Comment: Speci men Type: BLOOD SPECIMENOrdering Facility: [facility] Address: [address] [place] [address] Performed By: #### 5 7021-8 ####[facility] LABCLIA [id number] [place] [address] Hematocrit (Bld) [Volume fraction] 41.1 % Normal 36.0-46.0 [facility] Comment on above: Order Comment: Speci men Type: BLOOD SPECIMENOrdering Facility: [facility] Address: [address] [place] [address] Performed By: #### 5 7021-8 ####[facility] LABCLIA [id number] [place] [address] Hemoglobin (Bld) [Mass/Vol] 13.1 g/dL Normal 11.5-15.5 [facility] Comment on above: Order Comment: Speci men Type: BLOOD SPECIMENOrdering Facility: [facility] Address: [address] [place] [address] Performed By: #### 5 7021-8 ####[facility] LABCLIA [id number] [place] [address] Immature granulocytes (Bld) [#/Vol] 0.05 10*3/uL Normal <0.10 [facility] Comment on above: Order Comment: Speci men Type: BLOOD SPECIMENOrdering Facility: [facility] Address: [address] [place] [address] Performed By: #### 5 7021-8 ####[facility] LABCLIA [id number] [place] [address] Immature granulocytes/100 WBC (Bld) 0.5 % Normal [facility] Comment on above: Order Comment: Speci men Type: BLOOD SPECIMENOrdering Facility: [facility] Address: [address] [place] [address] Performed By: #### 5 7021-8 ####[facility] LABCLIA [id number] [place] [address] Lymphocytes (Bld) [#/Vol] 2.90 10*3/uL Normal 1.00-4.00 [facility] Comment on above: Order Comment: Speci men Type: BLOOD SPECIMENOrdering Facility: [facility] Address: [address] [place] [address] Performed By: #### 5 7021-8 ####[facility] LABCLIA [id number] [place] [address] Lymphocytes/100 WBC (Bld) 28.9 % Normal [facility] Comment on above: Order Comment: Speci men Type: BLOOD SPECIMENOrdering Facility: [facility] Address: [address] [place] [address] Performed By: #### 5 7021-8 ####[facility] LABCLIA [id number] [place] [address] MCH (RBC) [Entitic mass] 30.5 pg Normal 26.0-34.0 [facility] Comment on above: Order Comment: Speci men Type: BLOOD SPECIMENOrdering Facility: [facility] Address: [address] [place] [address] Performed By: #### 5 7021-8 ####[facility] LABCLIA [id number] [place] [address] MCHC (RBC) [Mass/Vol] 31.9 g/dL Normal 30.5-36.0 [facility] Comment on above: Order Comment: Speci men Type: BLOOD SPECIMENOrdering Facility: [facility] Address: [address] [place] [address] Performed By: #### 5 7021-8 ####[facility] LABCLIA [id number] [place] [address] MCV (RBC) [Entitic vol] 95.8 fL Normal 80.0-100.0 [facility] Comment on above: Order Comment: Speci men Type: BLOOD SPECIMENOrdering Facility: [facility] Address: [address] [place] [address] Performed By: #### 5 7021-8 ####[facility] LABCLIA [id number] [place] [address] Monocytes (Bld) [#/Vol] 0.54 10*3/uL Normal <0.87 [facility] Comment on above: Order Comment: Speci men Type: BLOOD SPECIMENOrdering Facility: [facility] Address: [address] [place] [address] Performed By: #### 5 7021-8 ####[facility] LABCLIA [id number] [place] [address] Monocytes/100 WBC (Bld) 5.4 % Normal [facility] Comment on above: Order Comment: Speci men Type: BLOOD SPECIMENOrdering Facility: [facility] Address: [address] [place] [address] Performed By: #### 5 7021-8 ####[facility] LABCLIA [id number] [place] [address] Neutrophils (Bld) [#/Vol] 6.41 10*3/uL Normal 1.45-7.50 [facility] Comment on above: Order Comment: Speci men Type: BLOOD SPECIMENOrdering Facility: [facility] Address: [address] [place] [address] Performed By: #### 5 7021-8 ####[facility] LABCLIA [id number] [place] [address] Neutrophils/100 WBC (Bld) 63.8 % Normal [facility] Comment on above: Order Comment: Speci men Type: BLOOD SPECIMENOrdering Facility: [facility] Address: [address] [place] [address] Performed By: #### 5 7021-8 ####[facility] LABCLIA [id number] [place] [address] Nucleated RBC (Bld) [#/Vol] 10*3/uL Normal <0.01 [facility] Comment on above: Order Comment: Speci men Type: BLOOD SPECIMENOrdering Facility: [facility] Address: [address] [place] [address] Performed By: #### 5 7021-8 ####[facility] LABCLIA [id number] [place] [address] Nucleated RBC/100 WBC (Bld) [Ratio] 0.0 /100 WBC Normal [facility] Comment on above: Order Comment: Speci men Type: BLOOD SPECIMENOrdering Facility: [facility] Address: [address] [place] [address] Performed By: #### 5 7021-8 ####[facility] LABCLIA [id number] [place] [address] Platelet mean volume (Bld) [Entitic vol] 9.4 fL Normal 9.0-12.7 [facility] Comment on above: Order Comment: Speci men Type: BLOOD SPECIMENOrdering Facility: [facility] Address: [address] [place] [address] Performed By: #### 5 7021-8 ####[facility] LABCLIA [id number] [place] [address] Platelets (Bld) [#/Vol] 290 10*3/uL Normal 150-400 [facility] Comment on above: Order Comment: Speci men Type: BLOOD SPECIMENOrdering Facility: [facility] Address: [address] [place] [address] Performed By: #### 5 7021-8 ####[facility] LABIA [id number] [place] [address] RBC (Bld) [#/Vol] 4.29 10*6/uL Normal 3.90-5.20 [facility] Comment on above: Order Comment: Speci men Type: BLOOD SPECIMENOrdering Facility: [facility] Address: [address] [place] [address] Performed By: #### 5 7021-8 ####[facility] LABIA [id number] [place] [address] WBC (Bld) [#/Vol] 10.04 10*3/uL Normal 3.70-11.00 [facility] Comment on above: Order Comment: Speci men Type: BLOOD SPECIMENOrdering Facility: [facility] Address: [address] [place] [address] Performed By: #### 5 7021-8 ####[facility] LABIA [id number] [place] [address] Comprehensive metabolic 2000 panelon 04-09-2023 Albumin [Mass/Vol] 4.1 g/dL Normal 3.9-4.9 [facility] Comment on above: Order Comment: Speci men Type: BLOOD SPECIMENOrdering Facility: [facility] Address: [address] [place] [address] Performed By: #### 2 4323-8 ####[facility] LABCLIA [id number] [place] [address] ALP [Catalytic activity/Vol] 74 U/L Normal 34-123 [facility] Comment on above: Order Comment: Speci men Type: BLOOD SPECIMENOrdering Facility: [facility] Address: [address] [place] [address] Performed By: #### 2 4323-8 ####[facility] LABCLIA [id number] [place] [address] ALT [Catalytic activity/Vol] 17 U/L Normal 7-38 [facility] Comment on above: Order Comment: Speci men Type: BLOOD SPECIMENOrdering Facility: [facility] Address: [address] [place] [address] Performed By: #### 2 4323-8 ####[facility] LABCLIA [id number] [place] [address] Anion gap [Moles/Vol] 12 mmol/L Normal 9-18 [facility] Comment on above: Order Comment: Speci men Type: BLOOD SPECIMENOrdering Facility: [facility] Address: [address] [place] [address] Performed By: #### 2 4323-8 ####[facility] LABCLIA [id number] [place] [address] AST [Catalytic activity/Vol] 11 U/L Low 13-35 [facility] Comment on above: Order Comment: Speci men Type: BLOOD SPECIMENOrdering Facility: [facility] Address: [address] [place] [address] Performed By: #### 2 4323-8 ####[facility] LABCLIA [id number] [place] [address] Bilirubin [Mass/Vol] 0.2 mg/dL Normal 0.2-1.3 [facility] Comment on above: Order Comment: Speci men Type: BLOOD SPECIMENOrdering Facility: [facility] Address: [address] [place] [address] Performed By: #### 2 4323-8 ####[facility] LABCLIA [id number] [place] [address] Calcium [Mass/Vol] 9.4 mg/dL Normal 8.5-10.2 [facility] Comment on above: Order Comment: Speci men Type: BLOOD SPECIMENOrdering Facility: [facility] Address: [address] [place] [address] Performed By: #### 2 4323-8 ####[facility] LABCLIA [id number] [place] [address] Chloride [Moles/Vol] 106 mmol/L High 97-105 [facility] Comment on above: Order Comment: Speci men Type: BLOOD SPECIMENOrdering Facility: [facility] Address: [address] [place] [address] Performed By: #### 2 4323-8 ####[facility] LABCLIA [id number] [place] [address] CO2 [Moles/Vol] 26 mmol/L Normal 22-30 [facility] Comment on above: Order Comment: Speci men Type: BLOOD SPECIMENOrdering Facility: [facility] Address: [address] [place] [address] Performed By: #### 2 4323-8 ####[facility] LABCLIA [id number] [place] [address] Creatinine [Mass/Vol] 0.89 mg/dL Normal 0.58-0.96 [facility] Comment on above: Order Comment: Speci men Type: BLOOD SPECIMENOrdering Facility: [facility] Address: [address] [place] [address] Performed By: #### 2 4323-8 ####[facility] LABCLIA [id number] [place] [address] Creatinine and Glomerular filtration rate.predicted panel (S/P/Bld) 83 mL/min/1.73m??? Normal >=60 [facility] Comment on above: Order Comment: Semaj cortés Type: BLOOD SPECIMENOrdering Facility: [facility] Address: [address] [place] [address] Result Comment: Erin mated Glomerular Filtration Rate [...] actual GFR. Performed By: #### 2 4323-8 ####[facility] LABCLIA [id number] [place] [address] Glucose [Mass/Vol] 120 mg/dL High 74-99 [facility] Comment on above: Order Comment: Semaj cortés Type: BLOOD SPECIMENOrdering Facility: [facility] Address: [address] [place] [address] Result Comment: The [place] [employer] (ADA) provides guidance for cutoff [...] Standards of Medical Care in Diabetes 2016, [place] [employer]. Diabetes Care. 2016.39(Suppl 1). Performed By: #### 2 4323-8 ####[facility] LABCLIA [id number] [place] [address] Potassium [Moles/Vol] 3.7 mmol/L Normal 3.7-5.1 [facility] Comment on above: Order Comment: Semaj cortés Type: BLOOD SPECIMENOrdering Facility: [facility] Address: [address] [place] [id number] Performed By: #### 2 4323-8 ####[facility] LABCLIA [id number] [place] [address] Protein [Mass/Vol] 6.7 g/dL Normal 6.3-8.0 [facility] Comment on above: Order Comment: Speci men Type: BLOOD SPECIMENOrdering Facility: [facility] Address: [address] [place] [address] Performed By: #### 2 4323-8 ####[facility] LABCLIA [id number] [place] [address] Sodium [Moles/Vol] 144 mmol/L Normal 136-144 [facility] Comment on above: Order Comment: Speci men Type: BLOOD SPECIMENOrdering Facility: [facility] Address: [address] [place] [address] Performed By: #### 2 4323-8 ####[facility] LABCLIA [id number] [place] [address] Urea nitrogen [Mass/Vol] 24 mg/dL High 7-21 [facility] Comment on above: Order Comment: Speci men Type: BLOOD SPECIMENOrdering Facility: [facility] Address: [address] [place] [address] Performed By: #### 2 4323-8 ####[facility] LABCLIA [id number] [place] [address] Ferritin SerPl-mCncon 2022 Ferritin [Mass/Vol] 21.2 ng/mL Normal 14.7-205.1 [facility] Comment on above: Order Comment: Speci men Type: BLOOD SPECIMENOrdering Facility: [facility] Address: [address] [place] [address] Performed By: #### 2 276-4, 2284-8, 66188-6, 2132-9 ####[facility] LABCLIA [id number] [place] [id number], [place] [address] [place] Folate SerPl-mCncon 04-09-20 23 Folate [Mass/Vol] 10.7 ng/mL Normal >4.7 [facility] Comment on above: Order Comment: Speci men Type: BLOOD SPECIMENOrdering Facility: [facility] Address: [address] [place] [address] Performed By: #### 2 276-4, 2284-8, 70448-8, 2132-9 ####[facility] LABIA [id number] [place] [address] [place] INSULIN ANTIBODY BLDon 04-09 Insulin Ab Qn (S) <0.4 Normal <0.4 [facility] Comment on above: Order Comment: Speci men Type: BLOOD SPECIMENOrdering Facility: [facility] Address: [address] [place] [address] Result Comment: Anti -insulin antibody test is used as an aid in diagnosis and prognosis of autoimmune diabetes mellitus in combination with other tests such as anti-GAD65 and anti-IA-2 antibody. A single negative result cannot rule out autoimmune diabetes mellitus. The test is not reliable in patients who had previously received exogenous insulin. Clinical correlation is required. Performed By: #### I NSLAB ####[facility] LABIA [id number] [place] [address] [place] INSULIN ANTIBODY, QUALITATIVE Negative Normal Negative [facility] Comment on above: Order Comment: Speci men Type: BLOOD SPECIMENOrdering Facility: [facility] Address: [address] [place] [address] Performed By: #### I NSLAB ####[facility] LABIA [id number] [place] [address] [place] Insulin SerPl-aCncon 023 Insulin Qn 266.5 u[IU]/mL High 3.0-25.0 [facility] Comment on above: Order Comment: Speci men Type: BLOOD SPECIMENOrdering Facility: [facility] Address: [address] [place] [address] Performed By: #### 2 0448-7 ####[facility] LABIA [id number] [place] [id number] [place] Iron and Iron binding capaci ty panelon 04-09-2023 Iron [Mass/Vol] 105 ug/dL Normal 41-186 [facility] Comment on above: Order Comment: Speci men Type: BLOOD SPECIMENOrdering Facility: [facility] Address: [address] [place] [address] Performed By: #### 2 276-4, 2284-8, 13842-8, 9 ####[facility] LABIA [id number] [place] [address] [place] Iron binding capacity [Mass/Vol] 414 ug/dL High 232-386 [facility] Comment on above: Order Comment: Speci men Type: BLOOD SPECIMENOrdering Facility: [facility] Address: [address] [place] [address] Performed By: #### 2 276-4, 2284-8, 22105-8, 2132-01 ####[facility] [id number] [place] [address] [place] Iron/TIBC [Molar ratio] 25.4 % Normal 15.0-57.0 [facility] Comment on above: Order Comment: Speci men Type: BLOOD SPECIMENOrdering Facility: [facility] Address: [address] [place] [address] Performed By: #### 2 276-4, 2284-8, 90284-9, 2132-01 ####[facility] [id number] [place] [id number] [place] Vit B12 [facility]Pl[facility] Cobalamin (Vitamin B12) [Mass/Vol] 370 pg/mL Normal 232-1245 [facility] Comment on above: Order Comment: Speci men Type: BLOOD SPECIMENOrdering Facility: [facility] Address: [address] [place] [address] Performed By: #### 2 276-4, 2284-8, 80417-2, 2132-9 ####[facility] LABCLIA [id number] [place] [id number] [place] CNNURSEon 03-19-2023 CNNURSE Normal [facility] CNNURSEon 03-11-2023 CNNURSE Normal [facility] CNPNon 03-01-2023 CNPN Normal [facility] CNNURSEon 02-19-2023 CNNURSE Normal [facility] CNOVSPon 02-19-2023 CNOVSP Normal [facility] B2 Microglob SerPl-mCncon Kigr-4-Ilfnjhiahziea [Mass/Vol] 1.9 ug/mL Normal 0.8-2.4 [facility] Comment on above: Order Comment: Speci men Type: BLOOD SPECIMENOrdering Facility: [facility] Address: [address] [place] [address] Result Comment: Beta -2 Microglobulin test is performed using the [employer] immunoturbidimetric method. Results obtained with different methods or kits cannot be used interchangeably. Performed By: #### 1 952-1, 30263-4, 2276-4 ####[facility] LABCLIA [id number] [place] [address] [place] CBC W Auto Differential pane l (Bld)on 02-11-2023 Basophils (Bld) [#/Vol] 0.08 10*3/uL Normal <0.11 [facility] Comment on above: Order Comment: Speci men Type: BLOOD SPECIMENOrdering Facility: [facility] Address: [address] [id number] Performed By: #### 5 7021-8 ####[facility] LABCLIA [id number] [place] [address] Basophils/100 WBC (Bld) 0.8 % Normal [facility] Comment on above: Order Comment: Speci men Type: BLOOD SPECIMENOrdering Facility: [facility] Address: [address] [place] [address] Performed By: #### 5 7021-8 ####[facility] LABCLIA [id number] [place] [address] Differential cell count method Nom (Bld) Auto Normal [facility] Comment on above: Order Comment: Speci men Type: BLOOD SPECIMENOrdering Facility: [facility] Address: [address] [place] [address] Performed By: #### 5 7021-8 ####[facility] LABCLIA [id number] [place] [address] Eosinophils (Bld) [#/Vol] 0.16 10*3/uL Normal <0.46 [facility] Comment on above: Order Comment: Speci men Type: BLOOD SPECIMENOrdering Facility: [facility] Address: [address] [place] [address] Performed By: #### 5 7021-8 ####[facility] LABCLIA [id number] [place] [address] Eosinophils/100 WBC (Bld) 1.6 % Normal [facility] Comment on above: Order Comment: Speci men Type: BLOOD SPECIMENOrdering Facility: [facility] Address: [address] [place] [address] Performed By: #### 5 7021-8 ####[facility] LABCLIA [id number] [place] [address] Erythrocyte distribution width (RBC) [Ratio] 14.6 % Normal 11.5-15.0 [facility] Comment on above: Order Comment: Speci men Type: BLOOD SPECIMENOrdering Facility: [facility] Address: [address] [place] [address] Performed By: #### 5 7021-8 ####[facility] LABCLIA [id number] [place] [address] Hematocrit (Bld) [Volume fraction] 41.0 % Normal 36.0-46.0 [facility] Comment on above: Order Comment: Speci men Type: BLOOD SPECIMENOrdering Facility: [facility] Address: [address] [address] Performed By: #### 5 7021-8 ####[facility] LABCLIA [id number] [place] [address] Hemoglobin (Bld) [Mass/Vol] 13.2 g/dL Normal 11.5-15.5 [facility] Comment on above: Order Comment: Speci men Type: BLOOD SPECIMENOrdering Facility: [facility] Address: [address] [address] Performed By: #### 5 7021-8 ####[facility] LABIA [id number] [place] [address] Immature granulocytes (Bld) [#/Vol] 0.07 10*3/uL Normal <0.10 [facility] Comment on above: Order Comment: Speci men Type: BLOOD SPECIMENOrdering Facility: [facility] Address: [address] [address] Performed By: #### 5 7021-8 ####[facility] LABIA [id number] [place] [address] Immature granulocytes/100 WBC (Bld) 0.7 % Normal [facility] Comment on above: Order Comment: Speci men Type: BLOOD SPECIMENOrdering Facility: [facility] Address: [address] [address] Performed By: #### 5 7021-8 ####[facility] LABIA [id number] [place] [address] Lymphocytes (Bld) [#/Vol] 2.29 10*3/uL Normal 1.00-4.00 [facility] Comment on above: Order Comment: Speci men Type: BLOOD SPECIMENOrdering Facility: [facility] Address: [address] [address] Performed By: #### 5 7021-8 ####[facility] LABCLIA [id number] [place] [address] Lymphocytes/100 WBC (Bld) 22.4 % Normal [facility] Comment on above: Order Comment: Speci men Type: BLOOD SPECIMENOrdering Facility: [facility] Address: [address] [place] [address] Performed By: #### 5 7021-8 ####[facility] LABCLIA [id number] [place] [address] MCH (RBC) [Entitic mass] 30.6 pg Normal 26.0-34.0 [facility] Comment on above: Order Comment: Speci men Type: BLOOD SPECIMENOrdering Facility: [facility] Address: [address] [place] [address] Performed By: #### 5 7021-8 ####[facility] LABCLIA [id number] [place] [address] MCHC (RBC) [Mass/Vol] 32.2 g/dL Normal 30.5-36.0 [facility] Comment on above: Order Comment: Speci men Type: BLOOD SPECIMENOrdering Facility: [facility] Address: [address] [place] [address] Performed By: #### 5 7021-8 ####[facility] LABCLIA [id number] [place] [address] MCV (RBC) [Entitic vol] 94.9 fL Normal 80.0-100.0 [facility] Comment on above: Order Comment: Speci men Type: BLOOD SPECIMENOrdering Facility: [facility] Address: [address] [place] [address] Performed By: #### 5 7021-8 ####[facility] LABIA [id number] [place] [address] Monocytes (Bld) [#/Vol] 0.62 10*3/uL Normal <0.87 [facility] Comment on above: Order Comment: Speci men Type: BLOOD SPECIMENOrdering Facility: [facility] Address: [address] [address] Performed By: #### 5 7021-8 ####[facility] LABCLIA [id number] [place] [address] Monocytes/100 WBC (Bld) 6.1 % Normal [facility] Comment on above: Order Comment: Speci men Type: BLOOD SPECIMENOrdering Facility: [facility] Address: [address] [address] Performed By: #### 5 7021-8 ####[facility] LABCLIA [id number] [place] [address] Neutrophils (Bld) [#/Vol] 6.99 10*3/uL Normal 1.45-7.50 [facility] Comment on above: Order Comment: Speci men Type: BLOOD SPECIMENOrdering Facility: [facility] Address: [address] [address] Performed By: #### 5 7021-8 ####[facility] LABIA [id number] [place] [address] Neutrophils/100 WBC (Bld) 68.4 % Normal [facility] Comment on above: Order Comment: Speci men Type: BLOOD SPECIMENOrdering Facility: [facility] Address: [address] Performed By: #### 5 7021-8 ####[facility] LABCLIA [id number] [place] [address] Nucleated RBC (Bld) [#/Vol] 10*3/uL Normal <0.01 [facility] Comment on above: Order Comment: Speci men Type: BLOOD SPECIMENOrdering Facility: [facility] Address: [address] [place] [address] Performed By: #### 5 7021-8 ####[facility] LABCLIA [id number] [place] [address] Nucleated RBC/100 WBC (Bld) [Ratio] 0.0 /100 WBC Normal [facility] Comment on above: Order Comment: Speci men Type: BLOOD SPECIMENOrdering Facility: [facility] Address: [address] [place] [address] Performed By: #### 5 7021-8 ####[facility] LABCLIA [id number] [place] [address] Platelet mean volume (Bld) [Entitic vol] 9.6 fL Normal 9.0-12.7 [facility] Comment on above: Order Comment: Speci men Type: BLOOD SPECIMENOrdering Facility: [facility] Address: [address] [place] [address] Performed By: #### 5 7021-8 ####[facility] LABIA [id number] [place] [address] Platelets (Bld) [#/Vol] 258 10*3/uL Normal 150-400 [facility] Comment on above: Order Comment: Speci men Type: BLOOD SPECIMENOrdering Facility: [facility] Address: [address] [place] [address] Performed By: #### 5 7021-8 ####[facility] LABCLIA [id number] [place] [address] RBC (Bld) [#/Vol] 4.32 10*6/uL Normal 3.90-5.20 [facility] Comment on above: Order Comment: Speci men Type: BLOOD SPECIMENOrdering Facility: [facility] Address: [address] [place] [address] Performed By: #### 5 7021-8 ####[facility] LABIA [id number] [place] [address] WBC (Bld) [#/Vol] 10.21 10*3/uL Normal 3.70-11.00 [facility] Comment on above: Order Comment: Speci men Type: BLOOD SPECIMENOrdering Facility: [facility] Address: [address] [place] [address] Performed By: #### 5 7021-8 ####[facility] LABCLIA [id number] [place] [address] Calcium.ionized [Moles/Vol]o n 02-11-2023 Calcium.ionized (Bld) [Mass/Vol] 1.32 mmol/L High 1.08-1.30 [facility] Comment on above: Order Comment: Speci men Type: BLOOD SPECIMENOrdering Facility: [facility] Address: [address] [place] [address] Performed By: #### 1 995-0 ####[facility] LABIA [id number] [place] [address] [place] Calcium.ionized adjusted to pH 7.4 (Bld) [Moles/Vol] 1.27 mmol/L Normal 1.08-1.30 [facility] Comment on above: Order Comment: Speci men Type: BLOOD SPECIMENOrdering Facility: [facility] Address: [address] [place] [address] Performed By: #### 1 995-0 ####[facility] LABIA [id number] [place] [address] [place] Comprehensive metabolic 2000 panelon 02-11-2023 Albumin [Mass/Vol] 4.0 g/dL Normal 3.9-4.9 [facility] Comment on above: Order Comment: Speci men Type: BLOOD SPECIMENOrdering Facility: [facility] Address: [address] [place] [address] Performed By: #### 2 4323-8, 2532-0, 2777-1, 3084-1 ####[facility] LABCLIA [id number] [place] [address] ALP [Catalytic activity/Vol] 75 U/L Normal 34-123 [facility] Comment on above: Order Comment: Speci men Type: BLOOD SPECIMENOrdering Facility: [facility] Address: [address] [address] Performed By: #### 2 4323-8, 2532-0, 7-1, 3083-1 ####[facility] LABCLIA [id number] [place] [address] ALT [Catalytic activity/Vol] 21 U/L Normal 7-38 [facility] Comment on above: Order Comment: Speci men Type: BLOOD SPECIMENOrdering Facility: [facility] Address: [address] [place] [address] Performed By: #### 2 4323-8, 2-0, 2776-1, 3083-1 ####[facility] LABIA [id number] [place] [address] Anion gap [Moles/Vol] 11 mmol/L Normal 9-18 [facility] Comment on above: Order Comment: Speci men Type: BLOOD SPECIMENOrdering Facility: [facility] Address: [address] [place] [address] Performed By: #### 2 4323-8, 2-0, 2776-1, 3083-1 ####[facility] LABIA [id number] [place] [address] AST [Catalytic activity/Vol] 11 U/L Low 13-35 [facility] Comment on above: Order Comment: Speci men Type: BLOOD SPECIMENOrdering Facility: [facility] Address: [address] [place] [address] Performed By: #### 2 4323-8, 2532-0, 2776-1, 308-1 ####[facility] LABIA [id number] [place] [address] Bilirubin [Mass/Vol] mg/dL Low 0.2-1.3 [facility] Comment on above: Order Comment: Speci men Type: BLOOD SPECIMENOrdering Facility: [facility] Address: [address] [place] [address] Performed By: #### 2 4323-8, 2532-0, 2777-1, 3084-1 ####[facility] LABCLIA [id number] [place] [address] Calcium [Mass/Vol] 9.7 mg/dL Normal 8.5-10.2 [facility] Comment on above: Order Comment: Speci men Type: BLOOD SPECIMENOrdering Facility: [facility] Address: [address] [address] Performed By: #### 2 4323-8, 2532-0, 2777-1, 3084-1 ####[facility] LABCLIA [id number] [place] [address] Chloride [Moles/Vol] 107 mmol/L High 97-105 [facility] Comment on above: Order Comment: Speci men Type: BLOOD SPECIMENOrdering Facility: [facility] Address: [address] [place] [address] Performed By: #### 2 4323-8, 2532-0, 2777-1, 3084-1 ####[facility] LABCLIA [id number] [place] [address] CO2 [Moles/Vol] 23 mmol/L Normal 22-30 [facility] Comment on above: Order Comment: Speci men Type: BLOOD SPECIMENOrdering Facility: [facility] Address: [address] [place] [address] Performed By: #### 2 4323-8, 2532-0, 2777-1, 3084-1 ####[facility] LABCLIA [id number] [place] [address] Creatinine [Mass/Vol] 0.76 mg/dL Normal 0.58-0.96 [facility] Comment on above: Order Comment: Speci men Type: BLOOD SPECIMENOrdering Facility: [facility] Address: [address] [place] [address] Performed By: #### 2 4323-8, 2532-0, 2777-1, 3084-1 ####[facility] LABCLIA [id number] [place] [address] Creatinine and Glomerular filtration rate.predicted panel (S/P/Bld) 100 mL/min/1.73m??? Normal >=60 [facility] Comment on above: Order Comment: Semaj cortés Type: BLOOD SPECIMENOrdering Facility: [facility] Address: [address] [place] [address] Result Comment: Erin mated Glomerular Filtration Rate [...] By: #### 2 4323-8, 2532-0, 2777-1, 3084-1 ####[facility] LABCLIA [id number] [place] [address] Glucose [Mass/Vol] 164 mg/dL High 74-99 [facility] Comment on above: Order Comment: Semaj cortés Type: BLOOD SPECIMENOrdering Facility: [facility] Address: [address] [place] [address] Result Comment: The [place] [employer] (ADA) provides guidance for cutoff [...] Standards of Medical Care in Diabetes 2016, [place] [employer]. Diabetes Care. 2016.39(Suppl 1). Performed By: #### 2 4323-8, 2532-0, 2777-1, 3084-1 ####[facility] LABIA [id number] [place] [address] Potassium [Moles/Vol] 4.0 mmol/L Normal 3.7-5.1 [facility] Comment on above: Order Comment: Speci men Type: BLOOD SPECIMENOrdering Facility: [facility] Address: [address] [address] Performed By: #### 2 4323-8, 2532-0, 2777-1, 3084-1 ####[facility] LABIA [id number] [place] [address] Protein [Mass/Vol] 6.5 g/dL Normal 6.3-8.0 [facility] Comment on above: Order Comment: Speci men Type: BLOOD SPECIMENOrdering Facility: [facility] Address: [address] [place] [address] Performed By: #### 2 4323-8, 2532-0, 2776-1, 3084-1 ####[facility] [id number] [place] [address] Sodium [Moles/Vol] 141 mmol/L Normal 136-144 [facility] Comment on above: Order Comment: Speci men Type: BLOOD SPECIMENOrdering Facility: [facility] Address: [address] [place] [address] Performed By: #### 2 4323-8, 2532-0, 7-1, 3084-1 ####[facility] LABIA [id number] [place] [address] Urea nitrogen [Mass/Vol] 15 mg/dL Normal 7-21 [facility] Comment on above: Order Comment: Speci men Type: BLOOD SPECIMENOrdering Facility: [facility] Address: [address] [place] [address] Performed By: #### 2 4323-8, 2532-0, 2777-1, 3084-1 ####[facility] LABCLIA [id number] [place] [address] Ferritin SerPl-mCncon 2022 Ferritin [Mass/Vol] 34.2 ng/mL Normal 14.7-205.1 [facility] Comment on above: Order Comment: Speci men Type: BLOOD SPECIMENOrdering Facility: [facility] Address: [address] [place] [address] Performed By: #### 1 952-1, 35643-6, 2276-4 ####[facility] LABCLIA [id number] [address] [place] Folate SerPl-mCncon 02-12-20 Folate [Mass/Vol] ng/mL Normal >4.7 [facility] Comment on above: Order Comment: Speci men Type: BLOOD SPECIMENOrdering Facility: [facility] Address: [address] [place] [address] Result Comment: A re sult of > 20 ng/mL is not necessarily indicative of a pathologic or treatable condition: it reflects a limitation of the test methodology.Assay reference range: 4.8 to 24.2 ng/mL. Suitable for detection of folate deficiency.Reference:Folate III (Folate III) [package insert V 1.0 Mal[place]ian]. [facility], [place], [place]: March 2015. Performed By: #### 2 885-2, 2132-9, 2284-8 ####[facility] LABIA [id number] [address] [place] IMMUNOFIXATION SCREEN, SERUM on 02-11-2023 MPA RESULT No M protein is identified. Normal No M protein is identified. [facility] Comment on above: Order Comment: Speci men Type: BLOOD SPECIMENOrdering Facility: [facility] Address: [address] [place] [address] Performed By: #### I [facility] ####[facility] LABCLIA [id number] [address] [place] STAFF REVIEW (MPA) Reviewed by Daphne vyas M.D. Normal [facility] Comment on above: Order Comment: Speci men Type: BLOOD SPECIMENOrdering Facility: [facility] Address: [address] [place] [address] Performed By: #### I FESC ####[facility] LABCLIA [id number] [place] [address] [place] IMMUNOGLOBULINS GAMon 2022 IgA [Mass/Vol] 178 mg/dL Normal 70-400 [facility] Comment on above: Order Comment: Speci men Type: BLOOD SPECIMENOrdering Facility: [facility] Address: [address] [place] [address] Performed By: #### S ERIMM ####[facility] LABCLIA [id number] [address] [place] IgG [Mass/Vol] 534 mg/dL Low 700-1600 [facility] Comment on above: Order Comment: Speci men Type: BLOOD SPECIMENOrdering Facility: [facility] Address: [address] [place] [address] Performed By: #### S ERIMM ####[facility] LABCLIA [id number] [place] [address] [place] IgM [Mass/Vol] 453 mg/dL High 40-230 [facility] Comment on above: Order Comment: Speci men Type: BLOOD SPECIMENOrdering Facility: [facility] Address: [address] [place] [address] Performed By: #### S ERIMM ####[facility] LABIA [id number] [place] [address] [place] Iron and Iron binding capaci ty panelon 02-11-2023 Iron [Mass/Vol] 55 ug/dL Normal 41-186 [facility] Comment on above: Order Comment: Speci men Type: BLOOD SPECIMENOrdering Facility: [facility] Address: [address] [id number] Performed By: #### 1 952-1, 07528-2, 2276-4 ####[facility] LABCLIA [id number] [place] [address] [place] Iron binding capacity [Mass/Vol] 339 ug/dL Normal 232-386 [facility] Comment on above: Order Comment: Speci men Type: BLOOD SPECIMENOrdering Facility: [facility] Address: [address] Performed By: #### 1 952-1, 08559-6, 2275-4 ####[facility] LABIA [id number] [place] [address] [place] Iron/TIBC [Molar ratio] 16.2 % Normal 15.0-57.0 [facility] Comment on above: Order Comment: Speci men Type: BLOOD SPECIMENOrdering Facility: [facility] Address: [address] [place], [place] [id number] Performed By: #### 1 952-1, 74071-6, 2275-4 ####[facility] LABIA [id number] [place] [address] [place] KAPPA/FARMER,FREE,SERon 2022 Immunoglobulin light chains.kappa.free (S) [Mass/Vol] 13.1 mg/L Normal 3.3-19.4 [facility] Comment on above: Order Comment: [facility] Type: BLOOD SPECIMENOrdering Facility: [facility] Address: [address] [place], [place] [address] Result Comment: Rare ly, increased serum free light chains levels may not be detected or accurately quantified due to prozone phenomenon or in high viscosity samples using this immunoturbidimetric assay. Correlation with other laboratory results and clinical findings is recommended.The [place] Free Light Chain was performed using the Binding Site Optilite immunoturbidimetric method. Result obtained with different assay methods or kits cannot be used interchangeably. Performed By: #### K LFRS ####[facility] LABIA [id number] [address] Immunoglobulin light chains.kappa/Immunog lobulin light chains.lambda (S) [Mass ratio] 1.22 Normal 0.26-1.65 [facility] Comment on above: Order Comment: Speci men Type: BLOOD SPECIMENOrdering Facility: [facility] Address: [address] [place] [address] Performed By: #### K LFRS ####[facility] [id number] [address] Immunoglobulin light chains.lambda.free [Mass/Vol] 10.7 mg/L Normal 5.7-26.3 [facility] Comment on above: Order Comment: [facility] Type: BLOOD SPECIMENOrdering Facility: [facility] Address: [address] [place] [address] Result Comment: Rare ly, increased serum free [...] used interchangeably. Performed By: #### K LFRS ####[facility] LABIA [id number] [place] [address] [place] LDH SerPl-cCncon 02-11-2023 LDH [Catalytic activity/Vol] 190 U/L Normal 135-214 [facility] Comment on above: Order Comment: Speci men Type: BLOOD SPECIMENOrdering Facility: [facility] Address: [address] [place] [address] Result Comment: Hemo lysis present. The origin [...] By: #### 2 4323-8, 2532-0, 2777-1, 3084-1 ####[facility] LABCLIA [id number] [place] [address] PROTEIN ELECTROPHORESIS SERU M (P)on 02-11-2023 Albumin [Mass/Vol] 3.61 g/dL Normal 3.43-5.41 [facility] Comment on above: Order Comment: Speci men Type: BLOOD SPECIMENOrdering Facility: [facility] Address: [address] [place] [address] Performed By: #### L [id number] ####[facility] LABCLIA [id number] [place] [address] [place] Alpha 1 globulin Elph [Mass/Vol] 0.31 g/dL Normal 0.18-0.43 [facility] Comment on above: Order Comment: Speci men Type: BLOOD SPECIMENOrdering Facility: [facility] Address: [address] [place] [address] Performed By: #### L [id number] ####[facility] LABCLIA [id number] [place] [address] [place] Alpha 2 globulin Elph [Mass/Vol] 0.76 g/dL Normal 0.42-0.98 [facility] Comment on above: Order Comment: Speci men Type: BLOOD SPECIMENOrdering Facility: [facility] Address: [address] [address] Performed By: #### L [id number] ####[facility] LABCLIA [id number] [place] [address] [place] Beta globulin Elph [Mass/Vol] 0.85 g/dL Normal 0.61-1.17 [facility] Comment on above: Order Comment: Speci men Type: BLOOD SPECIMENOrdering Facility: [facility] Address: [address] Performed By: #### L [id number] ####[facility] LABIA [id number] [address] [place] Gamma globulin Elph [Mass/Vol] 0.66 g/dL Normal 0.53-1.51 [facility] Comment on above: Order Comment: Speci men Type: BLOOD SPECIMENOrdering Facility: [facility] Address: [address] [address] Performed By: #### L [id number] ####[facility] [id number] [address] [place] M-PROTEIN LOCATION Normal [facility] Comment on above: Order Comment: Speci men Type: BLOOD SPECIMENOrdering Facility: [facility] Address: [address] [place] [address] Result Comment: Not Applicable. Performed By: #### L [id number] ####[facility] [id number] [place] [address] [place] Protein Fractions [Interp] No definitive M protein is identified on protein electrophoresis. Normal No definitive M protein is identified on protein electrophore sis. [facility] Comment on above: Order Comment: Speci men Type: BLOOD SPECIMENOrdering Facility: [facility] Address: [address] [address] Performed By: #### L [id number] ####[facility] LABIA [id number] [address] [place] Protein.monoclonal Elph [Mass/Vol] 0.00 g/dL Normal <=0.00 [facility] Comment on above: Order Comment: Speci men Type: BLOOD SPECIMENOrdering Facility: [facility] Address: [address] [address] Performed By: #### L [id number] ####[facility] LABIA [id number] [place] [address] [place] SPE STAFF REVIEW Reviewed by Daphne vyas M.D. Normal [facility] Comment on above: Order Comment: Speci men Type: BLOOD SPECIMENOrdering Facility: [facility] Address: [address] [place] [address] Performed By: #### L [id number] ####[facility] LABCLIA [id number] [place] [address] [place] Phosphate SerPl-mCncon 02-11 Phosphate [Mass/Vol] 3.4 mg/dL Normal 2.7-4.8 [facility] Comment on above: Order Comment: Speci men Type: BLOOD SPECIMENOrdering Facility: [facility] Address: [address] [place] [address] Performed By: #### 2 4323-8, 2532-0, 2777-1, 3084-1 ####[facility] LABCLIA [id number] [place] [address] Prot SerPl-mCncon 02-11-2023 Protein [Mass/Vol] 6.2 g/dL Low 6.3-8.0 [facility] Comment on above: Order Comment: Speci men Type: BLOOD SPECIMENOrdering Facility: [facility] Address: [address] [place] [address] Performed By: #### 2 885-2, 2132-9, 2284-8 ####[facility] LABCLIA [id number] [place] [address] [place] Urate SerPl-mCncon Urate [Mass/Vol] 4.3 mg/dL Normal 2.5-6.6 [facility] Comment on above: Order Comment: Speci men Type: BLOOD SPECIMENOrdering Facility: [facility] Address: [address] [place] [address] Performed By: #### 2 4323-8, 2532-0, 2777-1, 3084-1 ####[facility] LABCLIA [id number] [place] [address] Vit B12 [facility] Cobalamin (Vitamin B12) [Mass/Vol] 598 pg/mL Normal 232-1245 [facility] Comment on above: Order Comment: Speci men Type: BLOOD SPECIMENOrdering Facility: [facility] Address: [address] [place] [address] Performed By: #### 2 885-2, 2132-9, 2284-8 ####[facility] LABIA [id number] [address] [place] CNPNon 02-04-2023 CNPN Normal [facility] CNPNon 01-24-2023 CNPN Normal [facility] 25(OH)D3 [facility] 2022 25-hydroxyvitamin D3 [Mass/Vol] 25.1 ng/mL Low 31.0-80.0 [facility] Comment on above: Order Comment: Speci men Type: BLOOD SPECIMENOrdering Facility: [facility] Address: [address] [place] [address] Result Comment: Clas sification of 25 [place] Vitamin D status:Deficiency/Insufficiency: < or = 30 ng/ml.Sufficiency/Optimal Levels: 31-80 ng/mLToxicity: > 100 ng/mL.Test performed by chemiluminescent immunoassay. Performed By: #### 1 989-3 ####[facility] LABIA [id number] [address] [place] CBC panel Auto (Bld)on 01-22 Erythrocyte distribution width (RBC) [Ratio] 14.8 % Normal 11.5-15.0 [facility] Comment on above: Order Comment: Speci men Type: BLOOD SPECIMENOrdering Facility: [facility] Address: [address] [place] [address] Performed By: #### 5 8410-2 ####[facility] LABCLIA [id number] [place] [address] Hematocrit (Bld) [Volume fraction] 40.9 % Normal 36.0-46.0 [facility] Comment on above: Order Comment: Speci men Type: BLOOD SPECIMENOrdering Facility: [facility] Address: [address] [place] [address] Performed By: #### 5 8410-2 ####[facility] LABIA [id number] [place] [address] Hemoglobin (Bld) [Mass/Vol] 13.4 g/dL Normal 11.5-15.5 [facility] Comment on above: Order Comment: Speci men Type: BLOOD SPECIMENOrdering Facility: [facility] Address: [address] [place] [address] Performed By: #### 5 8410-2 ####[facility] LABIA [id number] [place] [address] MCH (RBC) [Entitic mass] 30.1 pg Normal 26.0-34.0 [facility] Comment on above: Order Comment: Speci men Type: BLOOD SPECIMENOrdering Facility: [facility] Address: [address] [place] [address] Performed By: #### 5 8410-2 ####[facility] LABIA [id number] [place] [address] MCHC (RBC) [Mass/Vol] 32.8 g/dL Normal 30.5-36.0 [facility] Comment on above: Order Comment: Speci men Type: BLOOD SPECIMENOrdering Facility: [facility] Address: [address] [place] [address] Performed By: #### 5 8410-2 ####[facility] LABIA [id number] [place] [address] MCV (RBC) [Entitic vol] 91.9 fL Normal 80.0-100.0 [facility] Comment on above: Order Comment: Speci men Type: BLOOD SPECIMENOrdering Facility: [facility] Address: [address] [address] Performed By: #### 5 8410-2 ####[facility] LABCLIA [id number] [place] [address] Nucleated RBC (Bld) [#/Vol] 10*3/uL Normal <0.01 [facility] Comment on above: Order Comment: Speci men Type: BLOOD SPECIMENOrdering Facility: [facility] Address: [address] [address] Performed By: #### 5 8410-2 ####[facility] LABCLIA [id number] [place] [address] Platelet mean volume (Bld) [Entitic vol] 9.6 fL Normal 9.0-12.7 [facility] Comment on above: Order Comment: Speci men Type: BLOOD SPECIMENOrdering Facility: [facility] Address: [address] [address] Performed By: #### 5 8410-2 ####[facility] LABCLIA [id number] [place] [address] Platelets (Bld) [#/Vol] 285 10*3/uL Normal 150-400 [facility] Comment on above: Order Comment: Speci men Type: BLOOD SPECIMENOrdering Facility: [facility] Address: [address] [address] Performed By: #### 5 8410-2 ####[facility] LABCLIA [id number] [place] [address] RBC (Bld) [#/Vol] 4.45 10*6/uL Normal 3.90-5.20 [facility] Comment on above: Order Comment: Speci men Type: BLOOD SPECIMENOrdering Facility: [facility] Address: [address] [place] [address] Performed By: #### 5 8410-2 ####[facility] LABCLIA [id number] [place] [address] WBC (Bld) [#/Vol] 13.80 10*3/uL High 3.70-11.00 [facility] Comment on above: Order Comment: Speci men Type: BLOOD SPECIMENOrdering Facility: [facility] Address: [address] [place] [address] Performed By: #### 5 8410-2 ####[facility] LABCLIA [id number] [place] [address] CNNURSEon 01-22-2023 CNNURSE Normal [facility] CRP SerPl-mCncon 01-22-2023 CRP [Mass/Vol] mg/L Normal <0.9 [facility] Comment on above: Order Comment: Speci men Type: BLOOD SPECIMENOrdering Facility: [facility] Address: [address] [place] [address] Performed By: #### 1 988-5 ####[facility] LABCLIA [id number] [place] [address] [facility] Comprehensive metabolic 2000 panelon 01-22-2023 Albumin [Mass/Vol] 4.1 g/dL Normal 3.9-4.9 [facility] Comment on above: Order Comment: Speci men Type: BLOOD SPECIMENOrdering Facility: [facility] Address: [address] [place] [address] Performed By: #### 2 4323-8 ####[facility] LABCLIA [id number] [place] [address] ALP [Catalytic activity/Vol] 62 U/L Normal 34-123 [facility] Comment on above: Order Comment: Speci men Type: BLOOD SPECIMENOrdering Facility: [facility] Address: [address] [place] [address] Performed By: #### 2 4323-8 ####[facility] LABCLIA [id number] [place] [address] ALT [Catalytic activity/Vol] 27 U/L Normal 7-38 [facility] Comment on above: Order Comment: Speci men Type: BLOOD SPECIMENOrdering Facility: [facility] Address: [address] [address] Performed By: #### 2 4323-8 ####[facility] LABCLIA [id number] [place] [address] Anion gap [Moles/Vol] 10 mmol/L Normal 9-18 [facility] Comment on above: Order Comment: Speci men Type: BLOOD SPECIMENOrdering Facility: [facility] Address: [address] [address] Performed By: #### 2 4323-8 ####[facility] LABCLIA [id number] [place] [address] AST [Catalytic activity/Vol] 12 U/L Low 13-35 [facility] Comment on above: Order Comment: Speci men Type: BLOOD SPECIMENOrdering Facility: [facility] Address: [address] [address] Performed By: #### 2 4323-8 ####[facility] LABCLIA [id number] [place] [address] Bilirubin [Mass/Vol] 0.2 mg/dL Normal 0.2-1.3 [facility] Comment on above: Order Comment: Speci men Type: BLOOD SPECIMENOrdering Facility: [facility] Address: [address] [address] Performed By: #### 2 4323-8 ####[facility] LABCLIA [id number] [place] [address] Calcium [Mass/Vol] 9.4 mg/dL Normal 8.5-10.2 [facility] Comment on above: Order Comment: Speci men Type: BLOOD SPECIMENOrdering Facility: [facility] Address: [address] [place] [address] Performed By: #### 2 4323-8 ####[facility] LABCLIA [id number] [place] [address] Chloride [Moles/Vol] 107 mmol/L High 97-105 [facility] Comment on above: Order Comment: Speci men Type: BLOOD SPECIMENOrdering Facility: [facility] Address: [address] [place] [address] Performed By: #### 2 4323-8 ####[facility] LABCLIA [id number] [place] [address] CO2 [Moles/Vol] 24 mmol/L Normal 22-30 [facility] Comment on above: Order Comment: Speci men Type: BLOOD SPECIMENOrdering Facility: [facility] Address: [address] [place] [address] Performed By: #### 2 4323-8 ####[facility] LABCLIA [id number] [place] [address] Creatinine [Mass/Vol] 0.71 mg/dL Normal 0.58-0.96 [facility] Comment on above: Order Comment: Speci men Type: BLOOD SPECIMENOrdering Facility: [facility] Address: [address] [place] [address] Performed By: #### 2 4323-8 ####[facility] LABCLIA [id number] [place] [address] Creatinine and Glomerular filtration rate.predicted panel (S/P/Bld) 109 mL/min/1.73m??? Normal >=60 [facility] Comment on above: Order Comment: Speci men Type: BLOOD SPECIMENOrdering Facility: [facility] Address: [address] [place] [address] Result Comment: Erin mated Glomerular Filtration Rate [...] actual GFR. Performed By: #### 2 4323-8 ####[facility] LABCLIA [id number] [place] [address] Glucose [Mass/Vol] 60 mg/dL Low 74-99 [facility] Comment on above: Order Comment: Semaj cortés Type: BLOOD SPECIMENOrdering Facility: [facility] Address: [address] [address] Result Comment: The [place] [employer] (ADA) provides guidance for cutoff [...] Standards of Medical Care in Diabetes 2016, [place] [employer]. Diabetes Care. 2016.39(Suppl 1). Performed By: #### 2 4323-8 ####[facility] LABCLIA [id number] [place] [address] Potassium [Moles/Vol] 4.0 mmol/L Normal 3.7-5.1 [facility] Comment on above: Order Comment: Semaj cortés Type: BLOOD SPECIMENOrdering Facility: [facility] Address: [address] [address] Performed By: #### 2 4323-8 ####[facility] LABCLIA [id number] [place] [address] Protein [Mass/Vol] 6.7 g/dL Normal 6.3-8.0 [facility] Comment on above: Order Comment: Semaj cortés Type: BLOOD SPECIMENOrdering Facility: [facility] Address: [address] [address] Performed By: #### 2 4323-8 ####[facility] LABCLIA [id number] [place] [address] Sodium [Moles/Vol] 141 mmol/L Normal 136-144 [facility] Comment on above: Order Comment: Speci men Type: BLOOD SPECIMENOrdering Facility: [facility] Address: [address] [place] [address] Performed By: #### 2 4323-8 ####[facility] LABCLIA [id number] [place] [address] Urea nitrogen [Mass/Vol] 13 mg/dL Normal 7-21 [facility] Comment on above: Order Comment: Speci men Type: BLOOD SPECIMENOrdering Facility: [facility] Address: [address] [place] [address] Performed By: #### 2 4323-8 ####[facility] LABCLIA [id number] [place] [address] ESR Westergren method (Bld) [Velocity]on 01-22-2023 ESR (Bld) [Velocity] 20 mm/h Normal 0-20 [facility] Comment on above: Order Comment: Speci men Type: BLOOD SPECIMENOrdering Facility: [facility] Address: [address] [place] [address] Performed By: #### 4 537-7 ####[facility] LABCLIA [id number] [place] [address] [place] CNNURSEon 12-29-2022 CNNURSE Normal [facility] CNPNon 12-18-2022 CNPN Normal [facility] CNPNon 12-16-2022 CNPN Normal [facility] CBC W Auto Differential pane l (Bld)on 12-08-2022 Basophils (Bld) [#/Vol] 0.06 10*3/uL Normal <0.11 [facility] Comment on above: Order Comment: Speci men Type: BLOOD SPECIMENOrdering Facility: [facility] Address: [address] [address] Performed By: #### 5 7021-8 ####[facility] LABCLIA [id number] [place] [address] Basophils/100 WBC (Bld) 0.4 % Normal [facility] Comment on above: Order Comment: Speci men Type: BLOOD SPECIMENOrdering Facility: [facility] Address: [address] [place] [address] Performed By: #### 5 7021-8 ####[facility] LABCLIA [id number] [place] [address] Differential cell count method Nom (Bld) Auto Normal [facility] Comment on above: Order Comment: Speci men Type: BLOOD SPECIMENOrdering Facility: [facility] Address: [address] [place] [address] Performed By: #### 5 7021-8 ####[facility] LABCLIA [id number] [place] [address] Eosinophils (Bld) [#/Vol] 0.11 10*3/uL Normal <0.46 [facility] Comment on above: Order Comment: Speci men Type: BLOOD SPECIMENOrdering Facility: [facility] Address: [address] [place] [address] Performed By: #### 5 7021-8 ####[facility] LABCLIA [id number] [place] [address] Eosinophils/100 WBC (Bld) 0.8 % Normal [facility] Comment on above: Order Comment: Speci men Type: BLOOD SPECIMENOrdering Facility: [facility] Address: [address] [place] [address] Performed By: #### 5 7021-8 ####[facility] LABCLIA [id number] [place] [address] Erythrocyte distribution width (RBC) [Ratio] 14.6 % Normal 11.5-15.0 [facility] Comment on above: Order Comment: Speci men Type: BLOOD SPECIMENOrdering Facility: [facility] Address: [address] [address] Performed By: #### 5 7021-8 ####[facility] LABCLIA [id number] [place] [address] Hematocrit (Bld) [Volume fraction] 42.0 % Normal 36.0-46.0 [facility] Comment on above: Order Comment: Speci men Type: BLOOD SPECIMENOrdering Facility: [facility] Address: [address] [place] [address] Performed By: #### 5 7021-8 ####[facility] LABCLIA [id number] [place] [address] Hemoglobin (Bld) [Mass/Vol] 13.3 g/dL Normal 11.5-15.5 [facility] Comment on above: Order Comment: Speci men Type: BLOOD SPECIMENOrdering Facility: [facility] Address: [address] [place] [address] Performed By: #### 5 7021-8 ####[facility] LABCLIA [id number] [place] [address] Immature granulocytes (Bld) [#/Vol] 0.11 10*3/uL High <0.10 [facility] Comment on above: Order Comment: Speci men Type: BLOOD SPECIMENOrdering Facility: [facility] Address: [address] [place] [address] Performed By: #### 5 7021-8 ####[facility] LABCLIA [id number] [place] [address] Immature granulocytes/100 WBC (Bld) 0.8 % Normal [facility] Comment on above: Order Comment: Speci men Type: BLOOD SPECIMENOrdering Facility: [facility] Address: [address] [address] Performed By: #### 5 7021-8 ####[facility] LABCLIA [id number] [place] [address] Lymphocytes (Bld) [#/Vol] 3.75 10*3/uL Normal 1.00-4.00 [facility] Comment on above: Order Comment: Speci men Type: BLOOD SPECIMENOrdering Facility: [facility] Address: [address] [place] [address] Performed By: #### 5 7021-8 ####[facility] LABCLIA [id number] [place] [address] Lymphocytes/100 WBC (Bld) 27.4 % Normal [facility] Comment on above: Order Comment: Speci men Type: BLOOD SPECIMENOrdering Facility: [facility] Address: [address] [place] [address] Performed By: #### 5 7021-8 ####[facility] LABCLIA [id number] [place] [address] MCH (RBC) [Entitic mass] 29.8 pg Normal 26.0-34.0 [facility] Comment on above: Order Comment: Speci men Type: BLOOD SPECIMENOrdering Facility: [facility] Address: [address] [place] [address] Performed By: #### 5 7021-8 ####[facility] LABCLIA [id number] [place] [address] MCHC (RBC) [Mass/Vol] 31.7 g/dL Normal 30.5-36.0 [facility] Comment on above: Order Comment: Speci men Type: BLOOD SPECIMENOrdering Facility: [facility] Address: [address] [place] [address] Performed By: #### 5 7021-8 ####[facility] LABIA [id number] [place] [address] MCV (RBC) [Entitic vol] 94.0 fL Normal 80.0-100.0 [facility] Comment on above: Order Comment: Speci men Type: BLOOD SPECIMENOrdering Facility: [facility] Address: [address] [address] Performed By: #### 5 7021-8 ####[facility] LABCLIA [id number] [place] [address] Monocytes (Bld) [#/Vol] 1.07 10*3/uL High <0.87 [facility] Comment on above: Order Comment: Speci men Type: BLOOD SPECIMENOrdering Facility: [facility] Address: [address] [place] [address] Performed By: #### 5 7021-8 ####[facility] LABCLIA [id number] [place] [address] Monocytes/100 WBC (Bld) 7.8 % Normal [facility] Comment on above: Order Comment: Speci men Type: BLOOD SPECIMENOrdering Facility: [facility] Address: [address] [place] [address] Performed By: #### 5 7021-8 ####[facility] LABCLIA [id number] [place] [address] Neutrophils (Bld) [#/Vol] 8.57 10*3/uL High 1.45-7.50 [facility] Comment on above: Order Comment: Speci men Type: BLOOD SPECIMENOrdering Facility: [facility] Address: [address] [place] [address] Performed By: #### 5 7021-8 ####[facility] LABCLIA [id number] [place] [address] Neutrophils/100 WBC (Bld) 62.8 % Normal [facility] Comment on above: Order Comment: Speci men Type: BLOOD SPECIMENOrdering Facility: [facility] Address: [address] [place] [address] Performed By: #### 5 7021-8 ####[facility] LABCLIA [id number] [place] [address] Nucleated RBC (Bld) [#/Vol] 10*3/uL Normal <0.01 [facility] Comment on above: Order Comment: Speci men Type: BLOOD SPECIMENOrdering Facility: [facility] Address: [address] [place] [address] Performed By: #### 5 7021-8 ####[facility] LABCLIA [id number] [place] [address] Nucleated RBC/100 WBC (Bld) [Ratio] 0.0 /100 WBC Normal [facility] Comment on above: Order Comment: Speci men Type: BLOOD SPECIMENOrdering Facility: [facility] Address: [address] [place] [address] Performed By: #### 5 7021-8 ####[facility] LABIA [id number] [place] [address] Platelet mean volume (Bld) [Entitic vol] 9.6 fL Normal 9.0-12.7 [facility] Comment on above: Order Comment: Speci men Type: BLOOD SPECIMENOrdering Facility: [facility] Address: [address] [place] [address] Performed By: #### 5 7021-8 ####[facility] LABCLIA [id number] [place] [address] Platelets (Bld) [#/Vol] 301 10*3/uL Normal 150-400 [facility] Comment on above: Order Comment: Speci men Type: BLOOD SPECIMENOrdering Facility: [facility] Address: [address] [place] [address] Performed By: #### 5 7021-8 ####[facility] LABIA [id number] [place] [address] RBC (Bld) [#/Vol] 4.47 10*6/uL Normal 3.90-5.20 [facility] Comment on above: Order Comment: Speci men Type: BLOOD SPECIMENOrdering Facility: [facility] Address: [address] [address] Performed By: #### 5 7021-8 ####[facility] LABCLIA [id number] [place] [address] WBC (Bld) [#/Vol] 13.67 10*3/uL High 3.70-11.00 [facility] Comment on above: Order Comment: Speci men Type: BLOOD SPECIMENOrdering Facility: [facility] Address: [address] [address] Performed By: #### 5 7021-8 ####[facility] LABCLIA [id number] [place] [address] CNPNon 12-08-2022 CNPN Normal [facility] metabolic 2000 panelon 12-08-2022 Albumin [Mass/Vol] 4.3 g/dL Normal 3.9-4.9 [facility] Comment on above: Order Comment: Speci men Type: BLOOD SPECIMENOrdering Facility: [facility] Address: [address] [address] Performed By: #### 2 4323-8 ####[facility] LABIA [id number] [place] [address] ALP [Catalytic activity/Vol] 63 U/L Normal 34-123 [facility] Comment on above: Order Comment: Speci men Type: BLOOD SPECIMENOrdering Facility: [facility] Address: [address] [address] Performed By: #### 2 4323-8 ####[facility] LABCLIA [id number] [place] [address] ALT [Catalytic activity/Vol] 19 U/L Normal 7-38 [facility] Comment on above: Order Comment: Speci men Type: BLOOD SPECIMENOrdering Facility: [facility] Address: [address] [address] Performed By: #### 2 4323-8 ####[facility] LABCLIA [id number] [place] [address] Anion gap [Moles/Vol] 5 mmol/L Low 9-18 [facility] Comment on above: Order Comment: Speci men Type: BLOOD SPECIMENOrdering Facility: [facility] Address: [address] [place] [address] Performed By: #### 2 4323-8 ####[facility] LABCLIA [id number] [place] [address] AST [Catalytic activity/Vol] 10 U/L Low 13-35 [facility] Comment on above: Order Comment: Speci men Type: BLOOD SPECIMENOrdering Facility: [facility] Address: [address] [place] [address] Performed By: #### 2 4323-8 ####[facility] LABCLIA [id number] [place] [address] Bilirubin [Mass/Vol] 0.2 mg/dL Normal 0.2-1.3 [facility] Comment on above: Order Comment: Speci men Type: BLOOD SPECIMENOrdering Facility: [facility] Address: [address] [place] [address] Performed By: #### 2 4323-8 ####[facility] LABCLIA [id number] [place] [address] Calcium [Mass/Vol] 9.9 mg/dL Normal 8.5-10.2 [facility] Comment on above: Order Comment: Speci men Type: BLOOD SPECIMENOrdering Facility: [facility] Address: [address] [place] [address] Performed By: #### 2 4323-8 ####[facility] LABCLIA [id number] [place] [address] Chloride [Moles/Vol] 106 mmol/L High 97-105 [facility] Comment on above: Order Comment: Speci men Type: BLOOD SPECIMENOrdering Facility: [facility] Address: [address] [address] Performed By: #### 2 4323-8 ####[facility] LABCLIA [id number] [place] [address] CO2 [Moles/Vol] 26 mmol/L Normal 22-30 [facility] Comment on above: Order Comment: Speci men Type: BLOOD SPECIMENOrdering Facility: [facility] Address: [address] [place] [address] Performed By: #### 2 4323-8 ####[facility] LABCLIA [id number] [place] [address] Creatinine [Mass/Vol] 0.80 mg/dL Normal 0.58-0.96 [facility] Comment on above: Order Comment: Speci men Type: BLOOD SPECIMENOrdering Facility: [facility] Address: [address] [place] [address] Performed By: #### 2 4323-8 ####[facility] LABCLIA [id number] [place] [address] ESTIMATED GLOMERULAR FILTRATION RATE 94 mL/min/1.73m??? Normal >=60 [facility] Comment on above: Order Comment: Speci men Type: BLOOD SPECIMENOrdering Facility: [facility] Address: [address] [place] [address] Result Comment: Erin mated Glomerular Filtration Rate [...] actual GFR. Performed By: #### 2 4323-8 ####[facility] LABCLIA [id number] [place] [address] Glucose [Mass/Vol] 91 mg/dL Normal 74-99 [facility] Comment on above: Order Comment: Speci men Type: BLOOD SPECIMENOrdering Facility: [facility] Address: [address] [address] Result Comment: The [place] [employer] (ADA) provides guidance for cutoff [...] Standards of Medical Care in Diabetes 2016, [place] [employer]. Diabetes Care. 2016.39(Suppl 1). Performed By: #### 2 4323-8 ####[facility] LABCLIA [id number] [place] [address] Potassium [Moles/Vol] 3.9 mmol/L Normal 3.7-5.1 [facility] Comment on above: Order Comment: Speci men Type: BLOOD SPECIMENOrdering Facility: [facility] Address: [address] [address] Performed By: #### 2 4323-8 ####[facility] LABCLIA [id number] [place] [address] Protein [Mass/Vol] 7.1 g/dL Normal 6.3-8.0 [facility] Comment on above: Order Comment: Speci men Type: BLOOD SPECIMENOrdering Facility: [facility] Address: [address] [address] Performed By: #### 2 4323-8 ####[facility] LABCLIA [id number] [place] [address] Sodium [Moles/Vol] 137 mmol/L Normal 136-144 [facility] Comment on above: Order Comment: Speci men Type: BLOOD SPECIMENOrdering Facility: [facility] Address: [address] [address] Performed By: #### 2 4323-8 ####[facility] LABCLIA [id number] [place] [address] Urea nitrogen [Mass/Vol] 20 mg/dL Normal 7-21 [facility] Comment on above: Order Comment: Speci men Type: BLOOD SPECIMENOrdering Facility: [facility] Address: [address] [place] [address] Performed By: #### 2 4323-8 ####[facility] LABCLIA [id number] [place] [address] Ferritin SerPl-mCncon 2022 Ferritin [Mass/Vol] 26.6 ng/mL Normal 14.7-205.1 [facility] Comment on above: Order Comment: Speci men Type: BLOOD SPECIMENOrdering Facility: [facility] Address: [address] [place] [address] Performed By: #### 5 0190-8, 2131-9, 6-4, 2284-8 ####[facility] LABIA [id number] [place] [address] [place] Folate SerPl-mCncon 12-09-19 23 Folate [Mass/Vol] 2.6 ng/mL Low >4.7 [facility] Comment on above: Order Comment: Speci men Type: BLOOD SPECIMENOrdering Facility: [facility] Address: [address] [place], [place] [address] Performed By: #### 5 0190-8, 2131-9, 6-4, 2283-8 ####[facility] LABIA [id number] [place] [address] [place] Iron and Iron binding capaci ty panelon 12-08-2022 Iron [Mass/Vol] 48 ug/dL Normal 41-186 [facility] Comment on above: Order Comment: Speci men Type: BLOOD SPECIMENOrdering Facility: [facility] Address: [address] [place], [place] [address] Performed By: #### 5 0190-8, 9, 4, 8 ####[facility] LABCLIA [id number] [place] [address] [place] Iron binding capacity [Mass/Vol] 382 ug/dL Normal 232-386 [facility] Comment on above: Order Comment: Speci men Type: BLOOD SPECIMENOrdering Facility: [facility] Address: [address] [address] Performed By: #### 5 0190-8, 9, 4, 2283-12 ####[facility] LABIA [id number] [place] [address] [place] Iron/TIBC [Molar ratio] 12.6 % Low 15.0-57.0 [facility] Comment on above: Order Comment: Speci men Type: BLOOD SPECIMENOrdering Facility: [facility] Address: [address] Performed By: #### 5 0190-8, 9, 2275-08, 2283-12 ####[facility] LABIA [id number] [place] [address] [place] Vit B12 [facility] 07-18-2 023 Cobalamin (Vitamin B12) [Mass/Vol] 336 pg/mL Normal 232-1245 [facility] Comment on above: Order Comment: Speci men Type: BLOOD SPECIMENOrdering Facility: [facility] Address: [address] Performed By: #### 5 0190-8, 9, 2275-08, 2283-12 ####[facility] LABCLIA [id number] [place] [id number] [place] CNNURSEon 11-19-2022 CNNURSE Normal [facility] CNPNon 10-31-2022 CNPN Normal [facility] CNNURSEon 10-22-2022 CNNURSE Normal [facility] CNOVSPon 10-22-2022 CNOVSP Normal [facility] TPMT PHENOTYPE/ENZYME ACTIVI TYon 10-22-2022 TPMT ACTIVITY 33.5 U/mL Normal 24.0-44.0 [facility] Comment on above: Order Comment: Speci men Type: BLOOD SPECIMENOrdering Facility: [facility] Address: [address] [place] [id number] Result Comment: INTE RPRETIVE INFORMATION: Thiopurine Methyltransferase, [...] was developed and its performance characteristicsdetermined by [employer]. It has not been cleared orapproved by the [place] Food and Drug Administration. This test wasperformed in a CLIA certified laboratory and is intended forclinical purposes.Performed By: [employer] [place], [place] [address]Pieetlrshh Director: Ole Love MD, PhD Performed By: #### T PMT ####FiscalNoteIA [id number] [place] [address] CNPNon 10-16-2022 CNPN Normal [facility] 25(OH)D3 [facility] 2022 25-hydroxyvitamin D3 [Mass/Vol] 28.3 ng/mL Low 31.0-80.0 [facility] Comment on above: Order Comment: Speci men Type: BLOOD SPECIMENOrdering Facility: [facility] Address: [address] [address] Result Comment: Clas sification of 25 [place] Vitamin D status:Deficiency/Insufficiency: < or = 30 ng/ml.Sufficiency/Optimal Levels: 31-80 ng/mLToxicity: > 100 ng/mL.Test performed by chemiluminescent immunoassay. Performed By: #### 1 989-3 ####[facility] LABCLIA [id number] [facility] [id number] [place] OF [facility] CBC W Auto Differential pane l (Bld)on 10-15-2022 Basophils (Bld) [#/Vol] 0.07 10*3/uL Normal <0.11 [facility] Comment on above: Order Comment: Speci men Type: BLOOD SPECIMENOrdering Facility: [facility] Address: [address] [place] [address] Performed By: #### 5 7021-8 ####[facility] LABCLIA [id number] [place] [address] Basophils/100 WBC (Bld) 0.6 % Normal [facility] Comment on above: Order Comment: Speci men Type: BLOOD SPECIMENOrdering Facility: [facility] Address: [address] [place] [address] Performed By: #### 5 7021-8 ####[facility] LABCLIA [id number] [place] [address] Differential cell count method Nom (Bld) Auto Normal [facility] Comment on above: Order Comment: Speci men Type: BLOOD SPECIMENOrdering Facility: [facility] Address: [address] [place] [address] Performed By: #### 5 7021-8 ####[facility] LABCLIA [id number] [place] [address] Eosinophils (Bld) [#/Vol] 0.16 10*3/uL Normal <0.46 [facility] Comment on above: Order Comment: Speci men Type: BLOOD SPECIMENOrdering Facility: [facility] Address: [address] [place] [address] Performed By: #### 5 7021-8 ####[facility] LABCLIA [id number] [place] [address] Eosinophils/100 WBC (Bld) 1.3 % Normal [facility] Comment on above: Order Comment: Speci men Type: BLOOD SPECIMENOrdering Facility: [facility] Address: [address] [place] [address] Performed By: #### 5 7021-8 ####[facility] LABIA [id number] [place] [address] Erythrocyte distribution width (RBC) [Ratio] 14.6 % Normal 11.5-15.0 [facility] Comment on above: Order Comment: Speci men Type: BLOOD SPECIMENOrdering Facility: [facility] Address: [address] [place] [address] Performed By: #### 5 7021-8 ####[facility] LABIA [id number] [place] [address] Hematocrit (Bld) [Volume fraction] 40.8 % Normal 36.0-46.0 [facility] Comment on above: Order Comment: Speci men Type: BLOOD SPECIMENOrdering Facility: [facility] Address: [address] [place] [address] Performed By: #### 5 7021-8 ####[facility] LABIA [id number] [place] [address] Hemoglobin (Bld) [Mass/Vol] 13.1 g/dL Normal 11.5-15.5 [facility] Comment on above: Order Comment: Speci men Type: BLOOD SPECIMENOrdering Facility: [facility] Address: [address] [place] [address] Performed By: #### 5 7021-8 ####[facility] LABCLIA [id number] [place] [address] Immature granulocytes (Bld) [#/Vol] 0.07 10*3/uL Normal <0.10 [facility] Comment on above: Order Comment: Speci men Type: BLOOD SPECIMENOrdering Facility: [facility] Address: [address] [place] [address] Performed By: #### 5 7021-8 ####[facility] LABCLIA [id number] [place] [address] Immature granulocytes/100 WBC (Bld) 0.6 % Normal [facility] Comment on above: Order Comment: Speci men Type: BLOOD SPECIMENOrdering Facility: [facility] Address: [address] [place] [address] Performed By: #### 5 7021-8 ####[facility] LABCLIA [id number] [place] [address] Lymphocytes (Bld) [#/Vol] 3.62 10*3/uL Normal 1.00-4.00 [facility] Comment on above: Order Comment: Speci men Type: BLOOD SPECIMENOrdering Facility: [facility] Address: [address] [place] [address] Performed By: #### 5 7021-8 ####[facility] LABCLIA [id number] [place] [address] Lymphocytes/100 WBC (Bld) 30.3 % Normal [facility] Comment on above: Order Comment: Speci men Type: BLOOD SPECIMENOrdering Facility: [facility] Address: [address] [place] [address] Performed By: #### 5 7021-8 ####[facility] LABCLIA [id number] [place] [address] MCH (RBC) [Entitic mass] 29.2 pg Normal 26.0-34.0 [facility] Comment on above: Order Comment: Speci men Type: BLOOD SPECIMENOrdering Facility: [facility] Address: [address] [address] Performed By: #### 5 7021-8 ####[facility] LABCLIA [id number] [place] [address] MCHC (RBC) [Mass/Vol] 32.1 g/dL Normal 30.5-36.0 [facility] Comment on above: Order Comment: Speci men Type: BLOOD SPECIMENOrdering Facility: [facility] Address: [address] [place] [address] Performed By: #### 5 7021-8 ####[facility] LABIA [id number] [place] [address] MCV (RBC) [Entitic vol] 90.9 fL Normal 80.0-100.0 [facility] Comment on above: Order Comment: Speci men Type: BLOOD SPECIMENOrdering Facility: [facility] Address: [address] [place] [address] Performed By: #### 5 7021-8 ####[facility] LABIA [id number] [place] [address] Monocytes (Bld) [#/Vol] 0.66 10*3/uL Normal <0.87 [facility] Comment on above: Order Comment: Speci men Type: BLOOD SPECIMENOrdering Facility: [facility] Address: [address] [place] [address] Performed By: #### 5 7021-8 ####[facility] LABCLIA [id number] [place] [address] Monocytes/100 WBC (Bld) 5.5 % Normal [facility] Comment on above: Order Comment: Speci men Type: BLOOD SPECIMENOrdering Facility: [facility] Address: [address] [place] [address] Performed By: #### 5 7021-8 ####[facility] LABCLIA [id number] [place] [address] Neutrophils (Bld) [#/Vol] 7.35 10*3/uL Normal 1.45-7.50 [facility] Comment on above: Order Comment: Speci men Type: BLOOD SPECIMENOrdering Facility: [facility] Address: [address] [place] [address] Performed By: #### 5 7021-8 ####[facility] LABCLIA [id number] [place] [address] Neutrophils/100 WBC (Bld) 61.7 % Normal [facility] Comment on above: Order Comment: Speci men Type: BLOOD SPECIMENOrdering Facility: [facility] Address: [address] [place] [address] Performed By: #### 5 7021-8 ####[facility] LABCLIA [id number] [place] [address] Nucleated RBC (Bld) [#/Vol] 10*3/uL Normal <0.01 [facility] Comment on above: Order Comment: Speci men Type: BLOOD SPECIMENOrdering Facility: [facility] Address: [address] [place] [address] Performed By: #### 5 7021-8 ####[facility] LABCLIA [id number] [place] [address] Nucleated RBC/100 WBC (Bld) [Ratio] 0.0 /100 WBC Normal [facility] Comment on above: Order Comment: Speci men Type: BLOOD SPECIMENOrdering Facility: [facility] Address: [address] [place] [address] Performed By: #### 5 7021-8 ####[facility] LABCLIA [id number] [place] [address] Platelet mean volume (Bld) [Entitic vol] 9.7 fL Normal 9.0-12.7 [facility] Comment on above: Order Comment: Speci men Type: BLOOD SPECIMENOrdering Facility: [facility] Address: [address] Performed By: #### 5 7021-8 ####[facility] LABCLIA [id number] [place] [address] Platelets (Bld) [#/Vol] 295 10*3/uL Normal 150-400 [facility] Comment on above: Order Comment: Speci men Type: BLOOD SPECIMENOrdering Facility: [facility] Address: [address] [address] Performed By: #### 5 7021-8 ####[facility] LABCLIA [id number] [place] [address] RBC (Bld) [#/Vol] 4.49 10*6/uL Normal 3.90-5.20 [facility] Comment on above: Order Comment: Speci men Type: BLOOD SPECIMENOrdering Facility: [facility] Address: [address] [address] Performed By: #### 5 7021-8 ####[facility] LABIA [id number] [place] [address] WBC (Bld) [#/Vol] 11.93 10*3/uL High 3.70-11.00 [facility] Comment on above: Order Comment: Speci men Type: BLOOD SPECIMENOrdering Facility: [facility] Address: [address] [address] Performed By: #### 5 7021-8 ####[facility] LABCLIA [id number] [place] [address] CRP [facility] 10-15-2022 CRP [Mass/Vol] 0.3 mg/dL Normal <0.9 [facility] Comment on above: Order Comment: Speci men Type: BLOOD SPECIMENOrdering Facility: [facility] Address: [address] [place] [address] Performed By: #### 1 988-5, 2885-2, 2132-9 ####[facility] LABCLIA [id number] [place] [address] [place] Comprehensive metabolic 2000 panelon 10-15-2022 Albumin [Mass/Vol] 4.0 g/dL Normal 3.9-4.9 [facility] Comment on above: Order Comment: Speci men Type: BLOOD SPECIMENOrdering Facility: [facility] Address: [address] [place] [address] Performed By: #### 2 532-0, 63105-4 ####[facility] LABCLIA [id number] [place] [address] ALP [Catalytic activity/Vol] 59 U/L Normal 34-123 [facility] Comment on above: Order Comment: Speci men Type: BLOOD SPECIMENOrdering Facility: [facility] Address: [address] [place] [address] Performed By: #### 2 532-0, 90942-2 ####[facility] LABIA [id number] [place] [address] ALT [Catalytic activity/Vol] 19 U/L Normal 7-38 [facility] Comment on above: Order Comment: Speci men Type: BLOOD SPECIMENOrdering Facility: [facility] Address: [address] [place] [address] Performed By: #### 2 532-0, 89286-0 ####[facility] LABIA [id number] [place] [address] Anion gap [Moles/Vol] 12 mmol/L Normal 9-18 [facility] Comment on above: Order Comment: Speci men Type: BLOOD SPECIMENOrdering Facility: [facility] Address: [address] [place] [address] Performed By: #### 2 532-0, 06037-4 ####[facility] LABIA [id number] [place] [address] AST [Catalytic activity/Vol] 10 U/L Low 13-35 [facility] Comment on above: Order Comment: Speci men Type: BLOOD SPECIMENOrdering Facility: [facility] Address: [address] [address] Performed By: #### 2 532-0, ####[facility] LABCLIA [id number] [place] [address] Bilirubin [Mass/Vol] 0.2 mg/dL Normal 0.2-1.3 [facility] Comment on above: Order Comment: Speci men Type: BLOOD SPECIMENOrdering Facility: [facility] Address: [address] [address] Performed By: #### 2 532-0, ####[facility] LABIA [id number] [place] [address] Calcium [Mass/Vol] 9.6 mg/dL Normal 8.5-10.2 [facility] Comment on above: Order Comment: Speci men Type: BLOOD SPECIMENOrdering Facility: [facility] Address: [address] [address] Performed By: #### 2 532-0, ####[facility] [facility] [id number] [place] [address] Chloride [Moles/Vol] 104 mmol/L Normal 97-105 [facility] Comment on above: Order Comment: Speci men Type: BLOOD SPECIMENOrdering Facility: [facility] Address: [address] [address] Performed By: #### 2 532-0, ####[facility] LABIA [id number] [place] [address] CO2 [Moles/Vol] 21 mmol/L Low 22-30 [facility] Comment on above: Order Comment: Speci men Type: BLOOD SPECIMENOrdering Facility: [facility] Address: [address] [address] Performed By: #### 2 532-0, ####[facility] LABCLIA [id number] [place] [address] Creatinine [Mass/Vol] 0.72 mg/dL Normal 0.58-0.96 [facility] Comment on above: Order Comment: Semaj cortés Type: BLOOD SPECIMENOrdering Facility: [facility] Address: [address] [place] [address] Performed By: #### 2 532-0, 71467-3 ####[facility] LABCLIA [id number] [place] [address] ESTIMATED GLOMERULAR FILTRATION RATE 107 mL/min/1.73m??? Normal >=60 [facility] Comment on above: Order Comment: Semaj cortés Type: BLOOD SPECIMENOrdering Facility: [facility] Address: [address] [place] [address] Result Comment: Erin mated Glomerular Filtration Rate [...] actual GFR. Performed By: #### 2 532-0, 73347-2 ####[facility] LABCLIA [id number] [place] [address] Glucose [Mass/Vol] 157 mg/dL High 74-99 [facility] Comment on above: Order Comment: Semaj cortés Type: BLOOD SPECIMENOrdering Facility: [facility] Address: [address] [place] [address] Result Comment: The [place] [employer] (ADA) provides guidance for cutoff [...] Standards of Medical Care in Diabetes 2016, [place] [employer]. Diabetes Care. 2016.39(Suppl 1). Performed By: #### 2 532-0, ####[facility] LABCLIA [id number] [place] [address] Potassium [Moles/Vol] 3.8 mmol/L Normal 3.7-5.1 [facility] Comment on above: Order Comment: Speci men Type: BLOOD SPECIMENOrdering Facility: [facility] Address: [address] [address] Performed By: #### 2 532-0, ####[facility] LABIA [id number] [place] [address] Protein [Mass/Vol] 6.8 g/dL Normal 6.3-8.0 [facility] Comment on above: Order Comment: Speci men Type: BLOOD SPECIMENOrdering Facility: [facility] Address: [address] [address] Performed By: #### 2 532-0, ####[facility] LABIA [id number] [place] [address] Sodium [Moles/Vol] 137 mmol/L Normal 136-144 [facility] Comment on above: Order Comment: Speci men Type: BLOOD SPECIMENOrdering Facility: [facility] Address: [address] [address] Performed By: #### 2 532-0, ####[facility] LABIA [id number] [place] [address] Urea nitrogen [Mass/Vol] 16 mg/dL Normal 7-21 [facility] Comment on above: Order Comment: Speci men Type: BLOOD SPECIMENOrdering Facility: [facility] Address: [address] [address] Performed By: #### 2 532-0, 09558-7 ####[facility] LABIA [id number] [place] [address] ESR Westergren method (Bld) [Velocity]on 10-15-2022 ESR (Bld) [Velocity] 27 mm/h High 0-20 [facility] Comment on above: Order Comment: Speci men Type: BLOOD SPECIMENOrdering Facility: [facility] Address: [address] [place] [address] Performed By: #### 4 537-7 ####[facility] LABIA [id number] [address] IMMUNOFIXATION SCREEN, SERUM on 10-15-2022 MPA RESULT No M protein is identified. Normal No M protein is identified. [facility] Comment on above: Order Comment: Speci men Type: BLOOD SPECIMENOrdering Facility: [facility] Address: [address] [place] [address] Performed By: #### I FES ####[facility] LABIA [id number] [address] [place] STAFF REVIEW (MPA) Reviewed by Chapito holt MD, Ph.D ([id number]) Normal [facility] Comment on above: Order Comment: Speci men Type: BLOOD SPECIMENOrdering Facility: [facility] Address: [address] [place], [place] [id number] Performed By: #### I FESC ####[facility] LABIA [id number] [place] [id number] [place] IMMUNOGLOBULINS GAMon 2022 IgA [Mass/Vol] 184 mg/dL Normal 70-400 [facility] Comment on above: Order Comment: Speci men Type: BLOOD SPECIMENOrdering Facility: [facility] Address: [address] [address] Performed By: #### S ERIMM ####[facility] LABCLIA [id number] [place] [address] [place] IgG [Mass/Vol] 540 mg/dL Low 700-1600 [facility] Comment on above: Order Comment: Speci men Type: BLOOD SPECIMENOrdering Facility: [facility] Address: [address] [place] [address] Performed By: #### S ERIMM ####[facility] LABCLIA [id number] [address] [place] IgM [Mass/Vol] 504 mg/dL High 40-230 [facility] Comment on above: Order Comment: Speci men Type: BLOOD SPECIMENOrdering Facility: [facility] Address: [address] [place] [address] Performed By: #### S ERIMM ####[facility] LABIA [id number] [place] [address] [place] KAPPA/FARMER,FREE,SERon 2022 Immunoglobulin light chains.kappa.free (S) [Mass/Vol] 14.2 mg/L Normal 3.3-19.4 [facility] Comment on above: Order Comment: Speci men Type: BLOOD SPECIMENOrdering Facility: [facility] Address: [address] [place] [address] Result Comment: Rare ly, increased serum free light chains levels may not be detected or accurately quantified due to prozone phenomenon or in high viscosity samples using this immunoturbidimetric assay. Correlation with other laboratory results and clinical findings is recommended.The [place] Free Light Chain was performed using the Binding Site Optilite immunoturbidimetric method. Result obtained with different assay methods or kits cannot be used interchangeably. Performed By: #### K LFRS ####[facility] LABIA [id number] [address] [place] Immunoglobulin light chains.kappa/Immunog lobulin light chains.lambda (S) [Mass ratio] 1.34 Normal 0.26-1.65 [facility] Comment on above: Order Comment: Speci men Type: BLOOD SPECIMENOrdering Facility: [facility] Address: [address] [place] [address] Performed By: #### K LFRS ####[facility] LABCLIA [id number] [place] [address] [place] Immunoglobulin light chains.lambda.free [Mass/Vol] 10.6 mg/L Normal 5.7-26.3 [facility] Comment on above: Order Comment: Speci men Type: BLOOD SPECIMENOrdering Facility: [facility] Address: [address] [place] [address] Result Comment: Rare ly, increased serum free [...] used interchangeably. Performed By: #### K LFRS ####[facility] LABIA [id number] [place] [address] [place] LDH SerPl-cCncon 10-15-2022 LDH [Catalytic activity/Vol] 155 U/L Normal 135-214 [facility] Comment on above: Order Comment: Speci men Type: BLOOD SPECIMENOrdering Facility: [facility] Address: [address] [place] [address] Performed By: #### 2 532-0, 38280-6 ####[facility] LABCLIA [id number] [place] [address] PROTEIN ELECTROPHORESIS SERU M WITH DANA (P)on 10-15-2022 Albumin [Mass/Vol] 3.92 g/dL Normal 3.43-5.41 [facility] Comment on above: Order Comment: Speci men Type: BLOOD SPECIMENOrdering Facility: [facility] Address: [address] [place] [address] Performed By: #### L [id number] ####[facility] LABIA [id number] [address] [place] Alpha 1 globulin Elph [Mass/Vol] 0.34 g/dL Normal 0.18-0.43 [facility] Comment on above: Order Comment: Speci men Type: BLOOD SPECIMENOrdering Facility: [facility] Address: [address] [place], [place] [id number] Performed By: #### L [id number] ####[facility] [id number] [address] [place] Alpha 2 globulin Elph [Mass/Vol] 0.84 g/dL Normal 0.42-0.98 [facility] Comment on above: Order Comment: Speci men Type: BLOOD SPECIMENOrdering Facility: [facility] Address: [address] [place], [place] [address] Performed By: #### L [id number] ####[facility] [id number] [address] [place] Beta globulin Elph [Mass/Vol] 0.92 g/dL Normal 0.61-1.17 [facility] Comment on above: Order Comment: Speci men Type: BLOOD SPECIMENOrdering Facility: [facility] Address: [address] [place], [place] [address] Performed By: #### L [id number] ####[facility] [id number] [place] [address] [place] COMMENT (SERUM PROT ELECTRO) Monoclonal Protein analysis (immunofixation) is not indicated. Normal [facility] Comment on above: Order Comment: Speci men Type: BLOOD SPECIMENOrdering Facility: [facility] Address: [address] [place], [place] [address] Performed By: #### L [id number] ####[facility] [id number] [place] [address] [place] Gamma globulin Elph [Mass/Vol] 0.68 g/dL Normal 0.53-1.51 [facility] Comment on above: Order Comment: Speci men Type: BLOOD SPECIMENOrdering Facility: [facility] Address: [address] [place] [address] Performed By: #### L [id number] ####[facility] LABCLIA [id number] [address] [place] M-PROTEIN LOCATION Normal [facility] Comment on above: Order Comment: Speci men Type: BLOOD SPECIMENOrdering Facility: [facility] Address: [address] [place] [address] Result Comment: Not Applicable. Performed By: #### L [id number] ####[facility] LABCLIA [id number] [address] [place] Protein Fractions [Interp] No definitive M protein is identified on protein electrophoresis. Normal No definitive M protein is identified on protein electrophore sis. [facility] Comment on above: Order Comment: Speci men Type: BLOOD SPECIMENOrdering Facility: [facility] Address: [address] [place] [address] Performed By: #### L [id number] ####[facility] LABCLIA [id number] [address] [place] Protein.monoclonal Elph [Mass/Vol] 0.00 g/dL Normal <=0.00 [facility] Comment on above: Order Comment: Speci men Type: BLOOD SPECIMENOrdering Facility: [facility] Address: [address] [place] [address] Performed By: #### L [id number] ####[facility] LABIA [id number] [place] [address] [place] SPE STAFF REVIEW Reviewed by Chapito holt MD, Ph.D ([id number]) Normal [facility] Comment on above: Order Comment: Speci men Type: BLOOD SPECIMENOrdering Facility: [facility] Address: [address] [address] Performed By: #### L [id number] ####[facility] LABCLIA [id number] [address] Prot SerPl-mCncon 10-15-2022 Protein [Mass/Vol] 6.7 g/dL Normal 6.3-8.0 [facility] Comment on above: Order Comment: Speci men Type: BLOOD SPECIMENOrdering Facility: [facility] Address: [address] [address] Performed By: #### 1 988-5, 28809-22, 2132-01 ####[facility] LABIA [id number] [address] Vit B12 [facility] 023 Cobalamin (Vitamin B12) [Mass/Vol] 368 pg/mL Normal 232-1245 [facility] Comment on above: Order Comment: Speci men Type: BLOOD SPECIMENOrdering Facility: [facility] Address: [address] [address] Performed By: #### 1 988-5, 28809-22, 2132-01 ####[facility] [id number] [address] [place] CBC AUTO DIFFon 09-24-2022 BASO # 0.1 103/ul Normal 0.0-0.1 [facility] Comment on above: Performed By: #### U AMIC #### [facility] [address] [address] [address] Manda York Basophils/100 WBC (Bld) 0.6 % Normal 0.2-2.0 [facility] Comment on above: Performed By: #### U AMIC #### [facility] [address] [address] [address] Manda York EO # 0.1 103/ul Normal 0.0-0.7 [facility] Comment on above: Performed By: #### U AMIC #### [facility] [address] [address] [address] Manda York Eosinophils/100 WBC (Bld) 0.6 % Critically low 0.9-7.0 [facility] Comment on above: Performed By: #### U AMIC #### [facility] [address] [place] [address] Dr. Manda York Erythrocyte distribution width (RBC) [Ratio] 14.6 % Normal 11.0-15.0 [facility] Comment on above: Performed By: #### U AMIC #### [facility] [address] [place] [address] Dr. Manda Yokr Hematocrit (Bld) [Volume fraction] 43.4 % Normal 36.0-48.0 [facility] Comment on above: Performed By: #### U AMIC #### [facility] [address] [place] [address] Dr. Manda York Hemoglobin (Bld) [Mass/Vol] 13.7 g/dL Normal 12.0-16.0 [facility] Comment on above: Performed By: #### U AMIC #### [facility] [address] [place] [address] Dr. Manda York IG # 0.12 10e3/ul Critically high 0.00-0.03 [facility] Comment on above: Performed By: #### U AMIC #### [facility] [address] [place] [address] Dr. Manda York IG % 0.8 % Critically high 0.0-0.5 [facility] Comment on above: Performed By: #### U AMIC #### [facility] [address] [place] [address] Dr. Manda York LYMPH # 2.6 103/ul Normal 1.2-3.8 [facility] Comment on above: Performed By: #### U AMIC #### [facility] [address] [place] [address] Dr. Manda York Lymphocytes/100 WBC (Bld) 18.3 % Critically low 20.5-60.0 [facility] Comment on above: Performed By: #### U AMIC #### [facility] [address] [place] [address] Dr. Manda York MANUAL DIFF REQ NO Normal [facility] Comment on above: Performed By: #### U AMIC #### [facility] [address] [place] [address] Dr. Manda York MCH (RBC) [Entitic mass] 29.0 pg Normal 26.7-34.0 [facility] Comment on above: Performed By: #### U AMIC #### [facility] [address] [place] [address] Dr. Manda York MCHC (RBC) [Mass/Vol] 31.6 g/dL Normal 29.9-35.2 [facility] Comment on above: Performed By: #### U AMIC #### [facility] [address] [place] [address] Dr. Manda York MCV (RBC) [Entitic vol] 91.8 fL Normal 81.0-99.0 [facility] Comment on above: Performed By: #### U AMIC #### [facility] [address] [place] [address] Dr. Manda York MONO # 0.7 103/ul Normal 0.3-0.8 [facility] Comment on above: Performed By: #### U AMIC #### [facility] [address] [place] [address] Dr. Manda York Monocytes/100 WBC (Bld) 5.1 % Normal 1.7-12.0 [facility] Comment on above: Performed By: #### U AMIC #### [facility] [address] [place] [address] Dr. Manda York NEUT # 10.6 103/ul Critically high 1.4-6.5 [facility] Comment on above: Performed By: #### U AMIC #### [facility] [address] [place] [address] Dr. Manda York Neutrophils/100 WBC (Bld) 74.6 % Normal 43.0-75.0 [facility] Comment on above: Performed By: #### U AMIC #### [facility] [address] [address] [address] Manda York Platelet mean volume (Bld) [Entitic vol] 9.4 fL Critically low 9.5-13.5 [facility] Comment on above: Performed By: #### U AMIC #### [facility] [address] [address] [address] Manda York PLT 307 103/ul Normal 150-450 [facility] Comment on above: Performed By: #### U AMIC #### [facility] [address] [address] [address] Manda York RBC 4.73 106/ul Normal 4.20-5.40 [facility] Comment on above: Performed By: #### U AMIC #### [facility] [address] [address] [address] Manda York WBC 14.2 103/ul Critically high 4.0-11.0 [facility] Comment on above: Performed By: #### U AMIC #### [facility] [address] [address] [address] Manda York CNNURSEon 09-24-2022 CNNURSE Normal [facility] FREE T4on 09-24-2022 Free T4 [Mass/Vol] 1.31 ng/dL Normal 0.76-1.46 [facility] Comment on above: Performed By: #### F T4 #### [facility] [address] [address] [address] Manda York GLYCOHEMOGLOBIN A1Con 2022 ADA RECOMMENDATION SEE BELOW Normal [facility] Comment on above: Result Comment: ADA RECOMMENDED LIMIT 4.0 - 6.0 ADA THERAPEUTIC TARGET < 7.0 ACTION SUGGESTED > 7.0 Performed By: #### A 1C #### [facility] [address] [place] [address] Dr. Manda York Glucose [Mass/Vol] 120 mg/dL Normal [facility] Comment on above: Performed By: #### A 1C #### [facility] [address] [place] [address] Dr. Manda York HbA1c (Bld) [Mass fraction] 5.8 % Normal 4.5-6.2 [facility] Comment on above: Performed By: #### A 1C #### [facility] [address] [place] [address] Dr. Manda York PREG QUANT HCGon 09-24-2022 HCG QUANT <1 Normal [facility] Comment on above: Performed By: #### F T4 #### [facility] [address] [place] [address] Dr. Manda York HCG RANGE SEE BELOW Normal [facility] Comment on above: Result Comment: 5-50 0.2-1 WEEK 50-500 1-2 WEEKS 100-5,000 2-3 WEEKS 500-10,000 3-4 WEEKS 1,000-50,000 4-5 WEEKS 10,000-100,000 5-6 WEEKS 15,000-200,000 6-8 WEEKS 10,000-100,000 2-3 MONTHS Performed By: #### F T4 #### [facility] [address] [place] [address] Dr. Manda York PROTIMEon 09-24-2022 INR Coag (PPP) [Relative time] {INR} Normal [facility] Comment on above: Performed By: #### F T4 #### [facility] [address] [place] [address] Dr. Manda York INR GUIDELINES SEE BELOW Normal [facility] Comment on above: Result Comment: SHERRY RED INR: 2.0 - 3.0 CONDITIONS NOT LISTED BELOW 2.5 - 3.5 FOR PROSTHETIC HEART VALVE REPLACEMENT 2.5 - 3.5 RECURRENT THROMBOSIS Performed By: #### F T4 #### [facility] [address] [place] [address] Dr. Manda York PT Coag (PPP) [Time] 9.6 s Normal 9.0-11.6 [facility] Comment on above: Performed By: #### F T4 #### [facility] [address] [place] [address] Dr. Manda York PTTon 09-24-2022 aPTT Coag (Bld) [Time] 28.2 s Normal 22.3-36.2 [facility] Comment on above: Performed By: #### F T4 #### [facility] [address] [address] [address] Manda York TSHon 09-24-2022 TSH 0.300 uIU/mL Critically low 0.358-3.740 [facility] Comment on above: Performed By: #### F T4 #### [facility] [address] [address] [address] Manda York US PELVIS TRANSVAGon 023 [...] by: AURORA SHAIKH Date: 2022-09-24 17:50 Normal [facility] PAP ACOG PANEL 2: 30 to 65on 09-18-2022 . . Normal [facility] Comment on above: Result Comment: Perf ormed at: WB Performed By: #### F T4 #### [facility] [address] [address] [address] Manda York Age Gdln ACOG Testing 30-65 Normal [facility] Comment on above: Performed By: #### F T4 #### [facility] [address] [id number] Manda York DIAGNOSIS: Comment Normal [facility] Comment on above: Result Comment: NEGA TIVE FOR INTRAEPITHELIAL LESION OR MALIGNANCY. Performed at: WB Performed By: #### F T4 #### [facility] [address] [address] [address] Manda York HPV Aptima Negative Normal Negative [facility] Comment on above: Result Comment: This nucleic acid amplification test detects fourteen high-risk HPV types (16,18,31,33,35,39,45,51,52,56,58,59,66,68) without differentiation. Performed at: =G Performed By: #### F T4 #### [facility] [address] [address] [address] Manda York HPV Genotype Reflex Comment Normal [facility] Comment on above: Result Comment: Crit eria not met, HPV Genotype not performed. Performed at: WB Performed By: #### F T4 #### [facility] [address] [address] [address] Manda York Methodology: Comment Normal [facility] Comment on above: Result Comment: This liquid based ThinPrep(R) pap test was screened with the use of an image guided system. Performed at: WB Performed By: #### F T4 #### [facility] [address] [address] [address] Manda York Note: Comment Normal [facility] Comment on above: Result Comment: The [...] WB Performed By: #### F T4 #### [facility] [address] [address] [address] Manda York Performed by: Comment Normal [facility] Comment on above: Result Comment: Lorena Peters, Forestry Faculty Member (ASCP) Performed at: WB Performed By: #### F T4 #### [facility] [address] [address] [address] Manda York Specimen adequacy: Comment Normal [facility] Comment on above: Result Comment: Sati sfactory for evaluation. Endocervical and/or squamous metaplastic cells (endocervical component) are present. Performed at: WB Performed By: #### F T4 #### [facility] [address] [address] [address] Manda York CNPNon 09-08-2022 CNPN Normal [facility] MG MAMM SCREEN 3D MARK CADon 09-01-2022 MG MAMM SCREEN 3D MARK CAD Patient: JONES HALEY Exam Date: 09/01/2022 : 1980 Gender:F Ordering : DR MADELAINE FERRIS . Admission #: [id number] Family : Order #: [id number] CLICK HERE TO VIEW EXAM RADIOLOGY REPORT [...] stomach cancer at age 56. LOCATION: [facility] BREAST COMPOSITION: Scattered areas fibroglandular density. [...] Yusuf M.D. on 09/02/2022 at 12:32 Normal [facility] CNNURSEon 08-27-2022 CNNURSE Normal [facility] CNOVSPon 08-27-2022 CNOVSP Normal [facility] CNPNon 08-19-2022 CNPN Normal [facility] 25(OH)D3 SerPl-mCncon 2022 25-hydroxyvitamin D3 [Mass/Vol] 33.1 ng/mL Normal 31.0-80.0 [facility] Comment on above: Order Comment: Speci men Type: BLOOD SPECIMENOrdering Facility: [facility] Address: [address] [id number] Result Comment: Clas sification of 25 [place] Vitamin D status:Deficiency/Insufficiency: < or = 30 ng/ml.Sufficiency/Optimal Levels: 31-80 ng/mLToxicity: > 100 ng/mL.Test performed by chemiluminescent immunoassay. Performed By: #### 1 989-3 ####[facility] LABCLIA [id number] [place] [address] [place] B2 Microglob SerPl-mCncon Ryfe-1-Zycpxfmxzlvbf [Mass/Vol] 1.6 ug/mL Normal 0.8-2.4 [facility] Comment on above: Order Comment: Speci men Type: BLOOD SPECIMENOrdering Facility: [facility] Address: [address] Result Comment: Beta -2 Microglobulin test is performed using the [employer] immunoturbidimetric method. Results obtained with different methods or kits cannot be used interchangeably. Performed By: #### 1 952-1, 1987-5, 2885-2, 2132-9 ####[facility] LABCLIA [id number] [place] [address] [place] CBC W Auto Differential pane l (Bld)on 08-18-2022 Basophils (Bld) [#/Vol] 0.03 10*3/uL Normal <0.11 [facility] Comment on above: Order Comment: Speci men Type: BLOOD SPECIMENOrdering Facility: [facility] Address: [address] [place], [place] [address] Performed By: #### 5 7021-8 ####[facility] LABCLIA [id number] [place] [address] Basophils/100 WBC (Bld) 0.2 % Normal [facility] Comment on above: Order Comment: Speci men Type: BLOOD SPECIMENOrdering Facility: [facility] Address: [address] [place] [address] Performed By: #### 5 7021-8 ####[facility] LABCLIA [id number] [place] [address] Differential cell count method Nom (Bld) Auto Normal [facility] Comment on above: Order Comment: Speci men Type: BLOOD SPECIMENOrdering Facility: [facility] Address: [address] [place] [address] Performed By: #### 5 7021-8 ####[facility] LABCLIA [id number] [place] [address] Eosinophils (Bld) [#/Vol] 0.08 10*3/uL Normal <0.46 [facility] Comment on above: Order Comment: Speci men Type: BLOOD SPECIMENOrdering Facility: [facility] Address: [address] [place] [address] Performed By: #### 5 7021-8 ####[facility] LABCLIA [id number] [place] [address] Eosinophils/100 WBC (Bld) 0.5 % Normal [facility] Comment on above: Order Comment: Speci men Type: BLOOD SPECIMENOrdering Facility: [facility] Address: [address] [place] [address] Performed By: #### 5 7021-8 ####[facility] LABCLIA [id number] [place] [address] Erythrocyte distribution width (RBC) [Ratio] 14.6 % Normal 11.5-15.0 [facility] Comment on above: Order Comment: Speci men Type: BLOOD SPECIMENOrdering Facility: [facility] Address: [address] [place] [address] Performed By: #### 5 7021-8 ####[facility] LABCLIA [id number] [place] [address] Hematocrit (Bld) [Volume fraction] 41.1 % Normal 36.0-46.0 [facility] Comment on above: Order Comment: Speci men Type: BLOOD SPECIMENOrdering Facility: [facility] Address: [address] [place] [address] Performed By: #### 5 7021-8 ####[facility] LABCLIA [id number] [place] [address] Hemoglobin (Bld) [Mass/Vol] 13.1 g/dL Normal 11.5-15.5 [facility] Comment on above: Order Comment: Speci men Type: BLOOD SPECIMENOrdering Facility: [facility] Address: [address] [place] [address] Performed By: #### 5 7021-8 ####[facility] LABCLIA [id number] [place] [address] Immature granulocytes (Bld) [#/Vol] 0.11 10*3/uL High <0.10 [facility] Comment on above: Order Comment: Speci men Type: BLOOD SPECIMENOrdering Facility: [facility] Address: [address] [place] [address] Performed By: #### 5 7021-8 ####[facility] LABCLIA [id number] [place] [address] Immature granulocytes/100 WBC (Bld) 0.7 % Normal [facility] Comment on above: Order Comment: Speci men Type: BLOOD SPECIMENOrdering Facility: [facility] Address: [address] [place] [address] Performed By: #### 5 7021-8 ####[facility] LABCLIA [id number] [place] [address] Lymphocytes (Bld) [#/Vol] 3.19 10*3/uL Normal 1.00-4.00 [facility] Comment on above: Order Comment: Speci men Type: BLOOD SPECIMENOrdering Facility: [facility] Address: [address] [address] Performed By: #### 5 7021-8 ####[facility] LABCLIA [id number] [place] [address] Lymphocytes/100 WBC (Bld) 21.7 % Normal [facility] Comment on above: Order Comment: Speci men Type: BLOOD SPECIMENOrdering Facility: [facility] Address: [address] [place] [address] Performed By: #### 5 7021-8 ####[facility] LABCLIA [id number] [place] [address] MCH (RBC) [Entitic mass] 28.9 pg Normal 26.0-34.0 [facility] Comment on above: Order Comment: Speci men Type: BLOOD SPECIMENOrdering Facility: [facility] Address: [address] [place] [address] Performed By: #### 5 7021-8 ####[facility] LABCLIA [id number] [place] [address] MCHC (RBC) [Mass/Vol] 31.9 g/dL Normal 30.5-36.0 [facility] Comment on above: Order Comment: Speci men Type: BLOOD SPECIMENOrdering Facility: [facility] Address: [address] [place] [address] Performed By: #### 5 7021-8 ####[facility] LABCLIA [id number] [place] [address] MCV (RBC) [Entitic vol] 90.7 fL Normal 80.0-100.0 [facility] Comment on above: Order Comment: Speci men Type: BLOOD SPECIMENOrdering Facility: [facility] Address: [address] [place] [address] Performed By: #### 5 7021-8 ####[facility] LABCLIA [id number] [place] [address] Monocytes (Bld) [#/Vol] 0.87 10*3/uL High <0.87 [facility] Comment on above: Order Comment: Speci men Type: BLOOD SPECIMENOrdering Facility: [facility] Address: [address] [address] Performed By: #### 5 7021-8 ####[facility] LABCLIA [id number] [place] [address] Monocytes/100 WBC (Bld) 5.9 % Normal [facility] Comment on above: Order Comment: Speci men Type: BLOOD SPECIMENOrdering Facility: [facility] Address: [address] [address] Performed By: #### 5 7021-8 ####[facility] LABCLIA [id number] [place] [address] Neutrophils (Bld) [#/Vol] 10.44 10*3/uL High 1.45-7.50 [facility] Comment on above: Order Comment: Speci men Type: BLOOD SPECIMENOrdering Facility: [facility] Address: [address] [address] Performed By: #### 5 7021-8 ####[facility] LABCLIA [id number] [place] [address] Neutrophils/100 WBC (Bld) 71.0 % Normal [facility] Comment on above: Order Comment: Speci men Type: BLOOD SPECIMENOrdering Facility: [facility] Address: [address] [address] Performed By: #### 5 7021-8 ####[facility] LABCLIA [id number] [place] [address] Nucleated RBC (Bld) [#/Vol] 10*3/uL Normal <0.01 [facility] Comment on above: Order Comment: Speci men Type: BLOOD SPECIMENOrdering Facility: [facility] Address: [address] [place] [address] Performed By: #### 5 7021-8 ####[facility] LABCLIA [id number] [place] [address] Nucleated RBC/100 WBC (Bld) [Ratio] 0.0 /100 WBC Normal [facility] Comment on above: Order Comment: Speci men Type: BLOOD SPECIMENOrdering Facility: [facility] Address: [address] [place] [address] Performed By: #### 5 7021-8 ####[facility] LABCLIA [id number] [place] [address] Platelet mean volume (Bld) [Entitic vol] 9.8 fL Normal 9.0-12.7 [facility] Comment on above: Order Comment: Speci men Type: BLOOD SPECIMENOrdering Facility: [facility] Address: [address] [place] [address] Performed By: #### 5 7021-8 ####[facility] LABIA [id number] [place] [address] Platelets (Bld) [#/Vol] 309 10*3/uL Normal 150-400 [facility] Comment on above: Order Comment: Speci men Type: BLOOD SPECIMENOrdering Facility: [facility] Address: [address] [place] [address] Performed By: #### 5 7021-8 ####[facility] LABIA [id number] [place] [address] RBC (Bld) [#/Vol] 4.53 10*6/uL Normal 3.90-5.20 [facility] Comment on above: Order Comment: Speci men Type: BLOOD SPECIMENOrdering Facility: [facility] Address: [address] [place] [address] Performed By: #### 5 7021-8 ####[facility] LABIA [id number] [place] [address] WBC (Bld) [#/Vol] 14.72 10*3/uL High 3.70-11.00 [facility] Comment on above: Order Comment: Speci men Type: BLOOD SPECIMENOrdering Facility: [facility] Address: [address] [place] [address] Performed By: #### 5 7021-8 ####[facility] LABCLIA [id number] [place] [address] CRP SerPl-ncon 08-18-2022 CRP [Mass/Vol] 0.3 mg/dL Normal <0.9 [facility] Comment on above: Order Comment: Speci men Type: BLOOD SPECIMENOrdering Facility: [facility] Address: [address] [place] [address] Performed By: #### 1 952-1, 1987-09, 2885-2, 2132-9 ####[facility] LABCLIA [id number] [place] [address] [place] Calcium.ionized [Moles/Vol]o n 08-18-2022 Calcium.ionized (Bld) [Mass/Vol] 1.29 mmol/L Normal 1.08-1.30 [facility] Comment on above: Order Comment: Speci men Type: BLOOD SPECIMENOrdering Facility: [facility] Address: [address] [place] [address] Performed By: #### 1 995-0 ####[facility] LABCLIA [id number] [place] [address] [place] Calcium.ionized adjusted to pH 7.4 (Bld) [Moles/Vol] 1.27 mmol/L Normal 1.08-1.30 [facility] Comment on above: Order Comment: Speci men Type: BLOOD SPECIMENOrdering Facility: [facility] Address: [address] [place], [place] [address] Performed By: #### 1 995-0 ####[facility] LABCLIA [id number] [place] [address] [place] Comprehensive metabolic 2000 panelon 08-18-2022 Albumin [Mass/Vol] 4.2 g/dL Normal 3.9-4.9 [facility] Comment on above: Order Comment: Speci men Type: BLOOD SPECIMENOrdering Facility: [facility] Address: [address] [place] [address] Performed By: #### 2 532-0, 2777-1, 3084-1, 00470-2 ####[facility] LABCLIA [id number] [place] [address] ALP [Catalytic activity/Vol] 66 U/L Normal 34-123 [facility] Comment on above: Order Comment: Speci men Type: BLOOD SPECIMENOrdering Facility: [facility] Address: [address] [place] [address] Performed By: #### 2 532-0, 2777-1, 3084-1, 96322-4 ####[facility] LABIA [id number] [place] [address] ALT [Catalytic activity/Vol] 22 U/L Normal 7-38 [facility] Comment on above: Order Comment: Speci men Type: BLOOD SPECIMENOrdering Facility: [facility] Address: [address] [place] [address] Performed By: #### 2 532-0, 2777-1, 3084-1, 35409-4 ####[facility] LABIA [id number] [place] [address] Anion gap [Moles/Vol] 11 mmol/L Normal 9-18 [facility] Comment on above: Order Comment: Speci men Type: BLOOD SPECIMENOrdering Facility: [facility] Address: [address] [place] [address] Performed By: #### 2 532-0, 2777-1, 3084-1, 31095-8 ####[facility] LABIA [id number] [place] [address] AST [Catalytic activity/Vol] 9 U/L Low 13-35 [facility] Comment on above: Order Comment: Speci men Type: BLOOD SPECIMENOrdering Facility: [facility] Address: [address] [place] [address] Performed By: #### 2 532-0, 277-1, 3083-, ####JULIAN [facility] LABCLIA [id number] [place] [address] Bilirubin [Mass/Vol] 0.2 mg/dL Normal 0.2-1.3 [facility] Comment on above: Order Comment: Speci men Type: BLOOD SPECIMENOrdering Facility: [facility] Address: [address] [place] [address] Performed By: #### 2 532-0, 277-1, 3083-05, ####[facility] LABCLIA [id number] [place] [address] Calcium [Mass/Vol] 9.3 mg/dL Normal 8.5-10.2 [facility] Comment on above: Order Comment: Speci men Type: BLOOD SPECIMENOrdering Facility: [facility] Address: [address] [place] [address] Performed By: #### 2 532-0, 2776-1, 3083-05, ####[facility] LABCLIA [id number] [place] [address] Chloride [Moles/Vol] 106 mmol/L High 97-105 [facility] Comment on above: Order Comment: Speci men Type: BLOOD SPECIMENOrdering Facility: [facility] Address: [address] [place] [address] Performed By: #### 2 532-0, 2776-1, 3083-05, ####[facility] LABCLIA [id number] [place] [address] CO2 [Moles/Vol] 23 mmol/L Normal 22-30 [facility] Comment on above: Order Comment: Speci men Type: BLOOD SPECIMENOrdering Facility: [facility] Address: [address] Performed By: #### 2 532-0, 7-1, 3083-05, ####[facility] LABCLIA [id number] [place] [address] Creatinine [Mass/Vol] 0.68 mg/dL Normal 0.58-0.96 [facility] Comment on above: Order Comment: Speci men Type: BLOOD SPECIMENOrdering Facility: [facility] Address: [address] [address] Performed By: #### 2 532-0, 2776-1, 3083-05, ####[facility] LABCLIA [id number] [place] [address] ESTIMATED GLOMERULAR FILTRATION RATE 112 mL/min/1.73m??? Normal >=60 [facility] Comment on above: Order Comment: Speci men Type: BLOOD SPECIMENOrdering Facility: [facility] Address: [address] [address] Result Comment: Erin mated Glomerular Filtration Rate [...] Performed By: #### 2 532-0, 2777-1, 3083-05, ####[facility] LABCLIA [id number] [place] [address] Glucose [Mass/Vol] 119 mg/dL High 74-99 [facility] Comment on above: Order Comment: Speci men Type: BLOOD SPECIMENOrdering Facility: [facility] Address: [address] [address] Result Comment: The [place] [employer] (ADA) provides guidance for cutoff [...] Standards of Medical Care in Diabetes 2016, [place] [employer]. Diabetes Care. 2016.39(Suppl 1). Performed By: #### 2 532-0, 2777-1, 3084-1, 65572-4 ####[facility] LABIA [id number] [place] [address] Potassium [Moles/Vol] 3.7 mmol/L Normal 3.7-5.1 [facility] Comment on above: Order Comment: Speci men Type: BLOOD SPECIMENOrdering Facility: [facility] Address: [address] [id number] Performed By: #### 2 532-0, 2777-1, 308-, 62909-5 ####[facility] LABIA [id number] [place] [address] Protein [Mass/Vol] 7.1 g/dL Normal 6.3-8.0 [facility] Comment on above: Order Comment: Speci men Type: BLOOD SPECIMENOrdering Facility: [facility] Address: [address] [id number] Performed By: #### 2 532-0, 2777-1, 308-, 23754-7 ####[facility] LABIA [id number] [place] [address] Sodium [Moles/Vol] 140 mmol/L Normal 136-144 [facility] Comment on above: Order Comment: Speci men Type: BLOOD SPECIMENOrdering Facility: [facility] Address: [address] [id number] Performed By: #### 2 532-0, 2777-1, 3084-1, 63377-4 ####[facility] LABCLIA [id number] [place] [address] Urea nitrogen [Mass/Vol] 11 mg/dL Normal 7-21 [facility] Comment on above: Order Comment: Speci men Type: BLOOD SPECIMENOrdering Facility: [facility] Address: [address] [place] [address] Performed By: #### 2 532-0, 2777-1, 3084-1, 26072-4 ####[facility] LABCLIA [id number] [place] [address] ESR Westergren method (Bld) [Velocity]on 08-18-2022 ESR (Bld) [Velocity] 25 mm/h High 0-20 [facility] Comment on above: Order Comment: Speci men Type: BLOOD SPECIMENOrdering Facility: [facility] Address: [address] [place] [address] Performed By: #### 4 537-7 ####[facility] [id number] [address] [place] IMMUNOFIXATION SCREEN, SERUM on 08-18-2022 MPA RESULT No M protein is identified. Normal No M protein is identified. [facility] Comment on above: Order Comment: Speci men Type: BLOOD SPECIMENOrdering Facility: [facility] Address: [address] [place], [place] [address] Performed By: #### I FESC ####[facility] LABIA [id number] [address] [place] STAFF REVIEW (MPA) Reviewed by Dr. Gregg Ortez MD [facility] Comment on above: Order Comment: Speci men Type: BLOOD SPECIMENOrdering Facility: [facility] Address: [address] [place] [address] Performed By: #### I FESC ####[facility] LABCLIA [id number] [place] [address] [place] IMMUNOGLOBULINS GAMon 2022 IgA [Mass/Vol] 188 mg/dL Normal 70-400 [facility] Comment on above: Order Comment: Speci men Type: BLOOD SPECIMENOrdering Facility: [facility] Address: [address] [place] [address] Performed By: #### S ERIMM ####[facility] LABCLIA [id number] [place] [address] [place] IgG [Mass/Vol] 591 mg/dL Low 700-1600 [facility] Comment on above: Order Comment: Speci men Type: BLOOD SPECIMENOrdering Facility: [facility] Address: [address] [place] [address] Performed By: #### S ERIMM ####[facility] LABCLIA [id number] [address] [place] IgM [Mass/Vol] 513 mg/dL High 40-230 [facility] Comment on above: Order Comment: Speci men Type: BLOOD SPECIMENOrdering Facility: [facility] Address: [address] [place] [address] Performed By: #### S ERIMM ####[facility] LABCLIA [id number] [place] [address] [place] KAPPA/FARMER,FREE,SERon 2022 Immunoglobulin light chains.kappa.free (S) [Mass/Vol] 13.9 mg/L Normal 3.3-19.4 [facility] Comment on above: Order Comment: Speci men Type: BLOOD SPECIMENOrdering Facility: [facility] Address: [address] [place] [address] Result Comment: Rare ly, increased serum free light chains levels may not be detected or accurately quantified due to prozone phenomenon or in high viscosity samples using this immunoturbidimetric assay. Correlation with other laboratory results and clinical findings is recommended.The [place] Free Light Chain was performed using the Binding Site [employer] immunoturbidimetric method. Result obtained with different assay methods or kits cannot be used interchangeably. Performed By: #### K LFRS ####[facility] LABCLIA [id number] [place] [address] [place] Immunoglobulin light chains.kappa/Immunog lobulin light chains.lambda (S) [Mass ratio] 1.51 Normal 0.26-1.65 [facility] Comment on above: Order Comment: Speci men Type: BLOOD SPECIMENOrdering Facility: [facility] Address: [address] [place] [address] Performed By: #### K LFRS ####[facility] LABIA [id number] [place] [address] [place] Immunoglobulin light chains.lambda.free [Mass/Vol] 9.2 mg/L Normal 5.7-26.3 [facility] Comment on above: Order Comment: Speci men Type: BLOOD SPECIMENOrdering Facility: [facility] Address: [address] [place] [address] Result Comment: Rare ly, increased serum free [...] used interchangeably. Performed By: #### K LFRS ####[facility] LABIA [id number] [place] [address] [place] LDH SerPl-cCncon 08-18-2022 LDH [Catalytic activity/Vol] 164 U/L Normal 135-214 [facility] Comment on above: Order Comment: Speci men Type: BLOOD SPECIMENOrdering Facility: [facility] Address: [address] [place] [address] Performed By: #### 2 532-0, 2777-1, 3084-1, 36305-4 ####[facility] LABCLIA [id number] [place] [address] PROTEIN ELECTROPHORESIS SERU M (P)on 08-18-2022 Albumin [Mass/Vol] 3.95 g/dL Normal 3.43-5.41 [facility] Comment on above: Order Comment: Speci men Type: BLOOD SPECIMENOrdering Facility: [facility] Address: [address] [place] [address] Performed By: #### L [id number] ####[facility] LABIA [id number] [place] [address] [place] Alpha 1 globulin Elph [Mass/Vol] 0.35 g/dL Normal 0.18-0.43 [facility] Comment on above: Order Comment: Speci men Type: BLOOD SPECIMENOrdering Facility: [facility] Address: [address] [place] [address] Performed By: #### L [id number] ####[facility] LABIA [id number] [place] [address] [place] Alpha 2 globulin Elph [Mass/Vol] 0.80 g/dL Normal 0.42-0.98 [facility] Comment on above: Order Comment: Speci men Type: BLOOD SPECIMENOrdering Facility: [facility] Address: [address] [place] [address] Performed By: #### L [id number] ####[facility] LABCLIA [id number] [place] [address] [place] Beta globulin Elph [Mass/Vol] 1.06 g/dL Normal 0.61-1.17 [facility] Comment on above: Order Comment: Speci men Type: BLOOD SPECIMENOrdering Facility: [facility] Address: [address] [place] [address] Performed By: #### L [id number] ####[facility] LABCLIA [id number] [address] [place] Gamma globulin Elph [Mass/Vol] 0.74 g/dL Normal 0.53-1.51 [facility] Comment on above: Order Comment: Speci men Type: BLOOD SPECIMENOrdering Facility: [facility] Address: [address] [place] [address] Performed By: #### L [id number] ####[facility] LABCLIA [id number] [address] [place] M-PROTEIN LOCATION Normal [facility] Comment on above: Order Comment: Speci men Type: BLOOD SPECIMENOrdering Facility: [facility] Address: [address] [place] [address] Result Comment: Not Applicable. Performed By: #### L [id number] ####[facility] LABIA [id number] [address] [place] Protein Fractions [Interp] No definitive M protein is identified on protein electrophoresis. Normal No definitive M protein is identified on protein electrophore sis. [facility] Comment on above: Order Comment: Speci men Type: BLOOD SPECIMENOrdering Facility: [facility] Address: [address] [place] [address] Performed By: #### L [id number] ####[facility] LABCLIA [id number] [address] [place] Protein.monoclonal Elph [Mass/Vol] 0.00 g/dL Normal <=0.00 [facility] Comment on above: Order Comment: Speci men Type: BLOOD SPECIMENOrdering Facility: [facility] Address: [address] [place] [address] Performed By: #### L [id number] ####[facility] LABCLIA [id number] [place] [address] [place] SPE STAFF REVIEW Reviewed by Dr. Gregg Ortez MD [facility] Comment on above: Order Comment: Speci men Type: BLOOD SPECIMENOrdering Facility: [facility] Address: [address] [place] [address] Performed By: #### L [id number] ####[facility] LABCLIA [id number] [place] [address] [place] Phosphate SerPl-mCncon 08-18 Phosphate [Mass/Vol] 3.6 mg/dL Normal 2.7-4.8 [facility] Comment on above: Order Comment: Speci men Type: BLOOD SPECIMENOrdering Facility: [facility] Address: [address] [place] [address] Performed By: #### 2 532-0, 277-1, 308-1, 30074-0 ####[facility] LABCLIA [id number] [place] [address] Prot SerPl-mCncon 08-18-2022 Protein [Mass/Vol] 6.9 g/dL Normal 6.3-8.0 [facility] Comment on above: Order Comment: Speci men Type: BLOOD SPECIMENOrdering Facility: [facility] Address: [address] [place] [address] Performed By: #### 1 952-1, 1987-5, 2885-2, 2132-9 ####[facility] LABCLIA [id number] [place] [address] [place] Urate SerPl-mCncon Urate [Mass/Vol] 3.8 mg/dL Normal 2.5-6.6 [facility] Comment on above: Order Comment: Speci men Type: BLOOD SPECIMENOrdering Facility: [facility] Address: [address] Performed By: #### 2 532-0, 2777-1, 3084-1, 63203-6 ####[facility] LABCLIA [id number] [place] [address] Vit B12 SerPl-mCncon 023 Cobalamin (Vitamin B12) [Mass/Vol] 325 pg/mL Normal 232-1245 [facility] Comment on above: Order Comment: Speci men Type: BLOOD SPECIMENOrdering Facility: [facility] Address: [address] [place] [address] Performed By: #### 1 952-1, 1987-5, 2885-2, 2131- ####[facility] LABCLIA [id number] [address] [address] [place] CNPNon 07-28-2022 CNPN Normal [facility] CNPNon 07-24-2022 CNPN Normal [facility] MRI KNEE RT WO CONon 022 MRI [...] MADELAINE GOMEZ Date: 2022-04-01 08:24 Normal [facility] PNEUMOCOCCAL IGG ABS, 23 SER OTYPESon 03-21-2022 Pneumococcal Interpretation See Note [facility] S. pneumoniae 1 IgG (S) [Mass/Vol] 0.27 ug/mL [facility] S. pneumoniae 12 IgG (S) [Mass/Vol] 0.08 ug/mL [facility] S. pneumoniae 14 IgG (S) [Mass/Vol] 0.19 ug/mL [facility] S. pneumoniae 17 IgG (S) [Mass/Vol] 1.72 ug/mL [facility] S. pneumoniae 19 IgG (S) [Mass/Vol] 1.52 ug/mL [facility] S. pneumoniae 2 IgG (S) [Mass/Vol] 0.44 ug/mL [facility] S. pneumoniae 20 IgG (S) [Mass/Vol] 1.53 ug/mL [facility] S. pneumoniae 22 IgG (S) [Mass/Vol] 0.99 ug/mL [facility] S. pneumoniae 23 IgG (S) [Mass/Vol] 0.14 ug/mL [facility] S. pneumoniae 3 IgG (S) [Mass/Vol] 0.36 ug/mL [facility] S. pneumoniae 34 IgG (S) [Mass/Vol] 5.77 ug/mL [facility] S. pneumoniae 4 IgG (S) [Mass/Vol] 0.06 ug/mL [facility] S. pneumoniae 43 IgG (S) [Mass/Vol] 0.93 ug/mL [facility] S. pneumoniae 5 IgG (S) [Mass/Vol] 0.89 ug/mL [facility] S. pneumoniae 8 IgG (S) [Mass/Vol] 0.58 ug/mL [facility] S. pneumoniae 9 IgG (S) [Mass/Vol] 0.4 ug/mL [facility] S. pneumoniae Chilean type 15B IgG (S) [Mass/Vol] 8.27 ug/mL [facility] S. pneumoniae Chilean type 18C IgG (S) [Mass/Vol] 0.39 ug/mL [facility] S. pneumoniae Chilean type 19A IgG (S) [Mass/Vol] 17.72 ug/mL [facility] S. pneumoniae Chilean type 33F IgG (S) [Mass/Vol] 3.04 ug/mL [facility] S. pneumoniae Chilean type 6B IgG (S) [Mass/Vol] 0.82 ug/mL [facility] S. pneumoniae Chilean type 7F IgG (S) [Mass/Vol] 0.34 ug/mL [facility] S. pneumoniae Chilean type 9V IgG (S) [Mass/Vol] 0.78 ug/mL [facility] XR KNEE RT 4V or >on 022 [...] by: KRISTINA GARRETT Date: 2022-03-21 16:47 Normal [facility] DIPHTHER/TETANUS ABon 2021 C. diphtheriae IgG Qn (S) 0.1 IU/mL [facility] C. tetani toxoid IgG IA Qn 1 IU/mL [facility] IGA BLDon 03-18-2022 IgA [Mass/Vol] 182 mg/dL 70 - 400 mg/dL [facility] IGE BLDon 03-18-2022 IgE Qn 12.3 kU/l <114.0 kU/l [facility] IGGon 03-18-2022 IgG [Mass/Vol] 618 mg/dL Low 700 - 1,600 mg/dL [facility] IGMon 03-18-2022 IgM [Mass/Vol] 514 mg/dL High 40 - 230 mg/dL [facility] Immunodeficiency panel FC (B ld)on 03-18-2022 CD3 cells (Bld) [#/Vol] 2841 cells/uL High 958 - 2,388 cells/uL [facility] CD3 cells/100 cells (Bld) 81 % 60 - 89 % [facility] CD3+CD4+ (T4 helper) cells (Bld) [#/Vol] 1621 cells/uL 533 - 1,674 cells/uL [facility] CD3+CD4+ (T4 helper) cells/100 cells (Bld) 46 % 34 - 61 % [facility] CD3+CD4+ (T4 helper) cells/CD3+CD8+ (T8 suppressor cells) cells (Bld) [# ratio] 1.55 % 1.10 - 3.25 [facility] CD3+CD8+ (T8 suppressor cells) cells (Bld) [#/Vol] 1049 cells/uL High 175 - 958 cells/uL [facility] CD3+CD8+ (T8 suppressor cells) cells/100 cells (Bld) 30 % 10 - 41 % [facility] CD3-CD16+CD56+ (Natural killer) cells (Bld) [#/Vol] 193 cells/uL 102 - 565 cells/uL [facility] CD3-CD16+CD56+ (Natural killer) cells/100 cells (Bld) 5 % 5 - 25 % [facility] CD3-CD19+ cells (Bld) [#/Vol] 475 cells/uL 75 - 660 cells/uL [facility] CD3-CD19+ cells/100 cells (Bld) 13 % 5 - 22 % [facility] CBC W Auto Differential pane l (Bld)on 03-17-2022 Basophils (Bld) [#/Vol] 0.07 10*3/uL <0.11 k/uL [facility] Basophils/100 WBC (Bld) 0.6 % [facility] Differential cell count method Nom (Bld) Auto [facility] Eosinophils (Bld) [#/Vol] 0.18 10*3/uL <0.46 k/uL [facility] Eosinophils/100 WBC (Bld) 1.6 % [facility] Erythrocyte distribution width (RBC) [Ratio] 14.6 % 11.5 - 15.0 % [facility] Hematocrit (Bld) [Volume fraction] 40.5 % 36.0 - 46.0 % [facility] Hemoglobin (Bld) [Mass/Vol] 13.0 g/dL 11.5 - 15.5 g/dL [facility] Immature granulocytes (Bld) [#/Vol] 0.06 10*3/uL <0.10 k/uL [facility] Immature granulocytes/100 WBC (Bld) 0.5 % [facility] Lymphocytes (Bld) [#/Vol] 2.97 10*3/uL 1.00 - 4.00 k/uL [facility] Lymphocytes/100 WBC (Bld) 26.9 % [facility] MCH (RBC) [Entitic mass] 28.4 pg 26.0 - 34.0 pg [facility] MCHC (RBC) [Mass/Vol] 32.1 g/dL 30.5 - 36.0 g/dL [facility] MCV (RBC) [Entitic vol] 88.4 fL 80.0 - 100.0 fL [facility] Monocytes (Bld) [#/Vol] 0.79 10*3/uL <0.87 k/uL [facility] Monocytes/100 WBC (Bld) 7.2 % [facility] Neutrophils (Bld) [#/Vol] 6.97 10*3/uL 1.45 - 7.50 k/uL [facility] Neutrophils/100 WBC (Bld) 63.2 % [facility] Nucleated RBC (Bld) [#/Vol] <0.01 k/uL [facility] Nucleated RBC/100 WBC (Bld) [Ratio] 0.0 /100 WBC [facility] Platelet mean volume (Bld) [Entitic vol] 9.9 fL 9.0 - 12.7 fL [facility] Platelets (Bld) [#/Vol] 314 10*3/uL 150 - 400 k/uL [facility] RBC (Bld) [#/Vol] 4.58 10*6/uL 3.90 - 5.2 0 m/uL [facility] WBC (Bld) [#/Vol] 11.04 10*3/uL High 3.70 - 11 .00 k/uL [facility] ECHOCARDIO M/2D COMPLETEon ECHOCARDIO M/2D COMPLETE Patient: JONES HALEY Exam Date: 03/12/2022 : 1980 Gender:F Ordering : DR MADELAINE FERRIS . Admission #: [id number] Family : Order #: [id number] CLICK HERE TO VIEW EXAM ECHOCARDIOGRAM REPORT [...] M.D. on 03/16/2022 at 16:47 Normal [facility] INSULINon 03-11-2022 Insulin 17.8 uIU/mL Normal 2.6-24.9 [facility] Comment on above: Performed By: #### C BC #### [facility] [address] [address] [address] Manda York CBC AUTO DIFFon 03-09-2022 BASO # 0.1 103/ul Normal 0.0-0.1 [facility] Comment on above: Performed By: #### C BC #### [facility] [address] [address] [address] Manda York Basophils/100 WBC (Bld) 0.4 % Normal 0.2-2.0 [facility] Comment on above: Performed By: #### C BC #### [facility] [address] [place] [address] Dr. Manda York EO # 0.2 103/ul Normal 0.0-0.7 [facility] Comment on above: Performed By: #### C BC #### [facility] [address] [place] [address] Dr. Manda York Eosinophils/100 WBC (Bld) 1.2 % Normal 0.9-7.0 [facility] Comment on above: Performed By: #### C BC #### [facility] [address] [place] [address] Dr. Manda York Erythrocyte distribution width (RBC) [Ratio] 14.6 % Normal 11.0-15.0 [facility] Comment on above: Performed By: #### C BC #### [facility] [address] [place] [address] Dr. Manda York Hematocrit (Bld) [Volume fraction] 39.2 % Normal 36.0-48.0 [facility] Comment on above: Performed By: #### C BC #### [facility] [address] [place] [address] Dr. Manda York Hemoglobin (Bld) [Mass/Vol] 12.7 g/dL Normal 12.0-16.0 [facility] Comment on above: Performed By: #### C BC #### [facility] [address] [place] [address] Dr. Manda York IG # 0.06 10e3/ul Critically high 0.00-0.03 [facility] Comment on above: Performed By: #### C BC #### [facility] [address] [place] [address] Dr. Manda York IG % 0.5 % Normal 0.0-0.5 [facility] Comment on above: Performed By: #### C BC #### [facility] [address] [place] [address] Dr. Manda York LYMPH # 3.7 103/ul Normal 1.2-3.8 [facility] Comment on above: Performed By: #### C BC #### [facility] [address] [place] [address] Dr. Manda York Lymphocytes/100 WBC (Bld) 31.0 % Normal 20.5-60.0 [facility] Comment on above: Performed By: #### C BC #### [facility] [address] [place] [address] Dr. Manda York MANUAL DIFF REQ NO Normal [facility] Comment on above: Performed By: #### C BC #### [facility] [address] [place] [address] Dr. Manda York MCH (RBC) [Entitic mass] 28.9 pg Normal 26.7-34.0 [facility] Comment on above: Performed By: #### C BC #### [facility] [address] [place] [address] Dr. Manda York MCHC (RBC) [Mass/Vol] 32.4 g/dL Normal 29.9-35.2 [facility] Comment on above: Performed By: #### C BC #### [facility] [address] [place] [address] Dr. Manda York MCV (RBC) [Entitic vol] 89.1 fL Normal 81.0-99.0 [facility] Comment on above: Performed By: #### C BC #### [facility] [address] [place] [address] Dr. Manda York MONO # 0.7 103/ul Normal 0.3-0.8 [facility] Comment on above: Performed By: #### C BC #### [facility] [address] [place] [address] Dr. Manda York Monocytes/100 WBC (Bld) 5.8 % Normal 1.7-12.0 [facility] Comment on above: Performed By: #### C BC #### [facility] [address] [place] [address] Dr. Manda York NEUT # 7.3 103/ul Critically high 1.4-6.5 [facility] Comment on above: Performed By: #### C BC #### [facility] [address] [place] [address] Dr. Manda York Neutrophils/100 WBC (Bld) 61.1 % Normal 43.0-75.0 [facility] Comment on above: Performed By: #### C BC #### [facility] [address] [place] [address] Dr. Mnada York Platelet mean volume (Bld) [Entitic vol] 9.7 fL Normal 9.5-13.5 [facility] Comment on above: Performed By: #### C BC #### [facility] [address] [place] [address] Dr. Manda York PLT 297 103/ul Normal 150-450 [facility] Comment on above: Performed By: #### C BC #### [facility] [address] [place] [address] Dr. Manda York RBC 4.40 106/ul Normal 4.20-5.40 [facility] Comment on above: Performed By: #### C BC #### [facility] [address] [place] [address] Dr. Manda York WBC 12.0 103/ul Critically high 4.0-11.0 [facility] Comment on above: Performed By: #### C BC #### [facility] [address] [place] [address] Dr. Manda York FREE THYROXINE INDEX T7on FTI 3.81 Normal 1.30-4.50 [facility] Comment on above: Performed By: #### U AMIC #### [facility] [address] [place] [address] Dr. Manda York T3U 34.0 % Normal 30.0-39.0 [facility] Comment on above: Performed By: #### U AMIC #### [facility] [address] [place] [address] Dr. Manda York T4 [Mass/Vol] 11.20 ug/dL Normal 4.80-13.90 [facility] Comment on above: Performed By: #### U AMIC #### [facility] [address] [address] [address] Manda York GLYCOHEMOGLOBIN A1Con 2021 ADA RECOMMENDATION SEE BELOW Normal [facility] Comment on above: Result Comment: ADA RECOMMENDED LIMIT 4.0 - 6.0 ADA THERAPEUTIC TARGET < 7.0 ACTION SUGGESTED > 7.0 Performed By: #### S LUIGI MELO #### [facility] [address] [address] [address] Manda York Glucose [Mass/Vol] 117 mg/dL Normal [facility] Comment on above: Performed By: #### S LUIGI MELO #### [facility] [address] [address] [address] Manda York HbA1c (Bld) [Mass fraction] 5.7 % Normal 4.5-6.2 [facility] Comment on above: Performed By: #### S LUIGI MELO #### [facility] [address] [place] [address] Dr. Manda York IRONon 03-09-2022 Iron [Mass/Vol] 61.0 ug/dL Normal 50.0-170.0 [facility] Comment on above: Performed By: #### C BC #### [facility] [address] [place] [address] Dr. Manda York LIPID PROFILEon 03-09-2022 CHOL-HDL RATIO NORM SEE BELOW Normal [facility] Comment on above: Result Comment: 3.3 - 4.4 LOW RISK 4.4 - 7.1 AVERAGE RISK 7.1 - 11.0 MODERATE RISK >11.0 HIGH RISK Performed By: #### U AMIC #### [facility] [address] [place] [address] Dr. Manda York Cholesterol [Mass/Vol] 260 mg/dL Critically high <=200 [facility] Comment on above: Performed By: #### U AMIC #### [facility] [address] [place] [address] Dr. Manda York Cholesterol in HDL [Mass/Vol] 38 mg/dL Critically low 40-60 [facility] Comment on above: Performed By: #### U AMIC #### [facility] [address] [address] [address] Manda York Cholesterol in LDL [Mass/Vol] 170.8 mg/dL Normal [facility] Comment on above: Performed By: #### U AMIC #### [facility] [address] [address] [address] Manda York Cholesterol.total/Ch olesterol in HDL [Mass ratio] 6.8 {ratio} Normal [facility] Comment on above: Performed By: #### U AMIC #### [facility] [address] [address] [address] Manda York HDL NORMAL > or = 60 mg/dl - LO W CARDIOVASCULAR RISK <40 mg/dl - HIGH CARDIOVASCULAR RISK Normal [facility] Comment on above: Performed By: #### U AMIC #### [facility] [address] [address] [address] Manda York LDL CALC NORMAL SEE BELOW Normal [facility] Comment on above: Result Comment: <100 mg/dl OPTIMAL 100 - 129 mg/dl NEAR OR ABOVE OPTIMAL 130 - 159 mg/dl BORDERLINE HIGH 160 - 189 mg/dl HIGH >190 mg/dl VERY HIGH Performed By: #### U AMIC #### [facility] [address] [address] [address] Manda York Triglyceride [Mass/Vol] 256 mg/dL Critically high <=150 [facility] Comment on above: Performed By: #### U AMIC #### [facility] [address] [address] [address] Manda York VLDL CALC 51.2 mg/dL Normal [facility] Comment on above: Performed By: #### U AMIC #### [facility] [address] [address] [address] Manda York PROF 14(COMP METB)on 022 Albumin [Mass/Vol] 3.8 g/dL Normal 3.4-5.0 [facility] Comment on above: Performed By: #### U AMIC #### [facility] [address] [place] [address] Dr. Manda York Albumin/Globulin [Mass ratio] 1.0 {ratio} Normal [facility] Comment on above: Performed By: #### U AMIC #### [facility] [address] [address] [address] Manda York ALP [Catalytic activity/Vol] 66 U/L Normal 46-116 [facility] Comment on above: Performed By: #### U AMIC #### [facility] [address] [address] [address] Manda York ALT [Catalytic activity/Vol] 27 U/L Normal 14-59 [facility] Comment on above: Performed By: #### U AMIC #### [facility] [address] [address] [address] Manda York Anion gap [Moles/Vol] 11.8 mmol/L Normal [facility] Comment on above: Performed By: #### U AMIC #### [facility] [address] [address] [address] Manda York AST [Catalytic activity/Vol] 9 U/L Critically low 15-37 [facility] Comment on above: Performed By: #### U AMIC #### [facility] [address] [address] [address] Manda York Bilirubin [Mass/Vol] 0.2 mg/dL Normal 0.2-1.0 [facility] Comment on above: Performed By: #### U AMIC #### [facility] [address] [address] [address] Manda York Calcium [Mass/Vol] 9.1 mg/dL Normal 8.5-10.1 [facility] Comment on above: Performed By: #### U AMIC #### [facility] [address] [address] [address] Manda York Chloride [Moles/Vol] 101 mmol/L Normal 98-107 [facility] Comment on above: Performed By: #### U AMIC #### [facility] [address] [address] [address] Manda Yrok CO2 [Moles/Vol] 26.1 mmol/L Normal 21.0-32.0 [facility] Comment on above: Performed By: #### U AMIC #### [facility] [address] [address] [address] Manda York Creatinine [Mass/Vol] 0.80 mg/dL Normal 0.55-1.02 [facility] Comment on above: Performed By: #### U AMIC #### [facility] [address] [address] [address] Manda York EGFR-AF GABONESE >60 Normal >=60 [facility] Comment on above: Performed By: #### U AMIC #### [facility] [address] [address] [address] Manda York EGFR-NON AF GABONESE >60 Normal >=60 [facility] Comment on above: Performed By: #### U AMIC #### [facility] [address] [place] [address] Dr. Manda York Globulin (S) [Mass/Vol] 3.8 g/dL Normal [facility] Comment on above: Performed By: #### U AMIC #### [facility] [address] [place] [address] Dr. Manda York Glucose [Mass/Vol] 93 mg/dL Normal 74-106 [facility] Comment on above: Performed By: #### U AMIC #### [facility] [address] [place] [address] Dr. Manda York Potassium [Moles/Vol] 3.9 mmol/L Normal 3.5-5.1 [facility] Comment on above: Performed By: #### U AMIC #### [facility] [address] [place] [address] Dr. Manda York Protein [Mass/Vol] 7.6 g/dL Normal 6.4-8.2 [facility] Comment on above: Performed By: #### U AMIC #### [facility] [address] [address] [address] Manda York Sodium [Moles/Vol] 135 mmol/L Critically low 136-145 [facility] Comment on above: Performed By: #### U AMIC #### [facility] [address] [address] [address] Manda York Urea nitrogen [Mass/Vol] 10.0 mg/dL Normal 7.0-18.0 [facility] Comment on above: Performed By: #### U AMIC #### [facility] [address] [address] [address] Manda York Urea nitrogen/Creatinine [Mass ratio] 12.5 mg/mg Normal [facility] Comment on above: Performed By: #### U AMIC #### [facility] [address] [address] [address] Manda York TSHon 03-09-2022 TSH 0.610 uIU/mL Normal 0.358-3.740 [facility] Comment on above: Performed By: #### U AMIC #### [facility] [address] [address] [address] Manda York B2 MICROGLOBULIN [facility] 022 Zewr-4-Lemjenoubdqyp [Mass/Vol] 1.8 ug/mL 0.8 - 2.4 mg/L [facility] FERRITIN BLDon 03-05-2022 Ferritin [Mass/Vol] 33.2 ng/mL 14.7 - 2 05.1 ng/mL [facility] FOLATE SERUMon 03-05-2022 Folate [Mass/Vol] 6.6 ng/mL >4.7 ng/mL [facility] Iron and Iron binding capaci ty panelon 03-05-2022 Iron [Mass/Vol] 49 ug/dL 41 - 186 ug/dL [facility] Iron binding capacity [Mass/Vol] 392 ug/dL High 232 - 386 ug/dL [facility] Iron/TIBC [Molar ratio] 12.5 % Low 15.0 - 57.0 % [facility] CBC W Auto Differential pane l (Bld)on 03-04-2022 Basophils (Bld) [#/Vol] 0.07 10*3/uL <0.11 k/uL [facility] Basophils/100 WBC (Bld) 0.6 % [facility] Differential cell count method Nom (Bld) Auto [facility] Eosinophils (Bld) [#/Vol] 0.19 10*3/uL <0.46 k/uL [facility] Eosinophils/100 WBC (Bld) 1.7 % [facility] Erythrocyte distribution width (RBC) [Ratio] 14.7 % 11.5 - 15.0 % [facility] Hematocrit (Bld) [Volume fraction] 40.0 % 36.0 - 46.0 % [facility] Hemoglobin (Bld) [Mass/Vol] 13.0 g/dL 11.5 - 15.5 g/dL [facility] Immature granulocytes (Bld) [#/Vol] 0.07 10*3/uL <0.10 k/uL [facility] Immature granulocytes/100 WBC (Bld) 0.6 % [facility] Lymphocytes (Bld) [#/Vol] 3.31 10*3/uL 1.00 - 4.00 k/uL [facility] Lymphocytes/100 WBC (Bld) 30.2 % [facility] MCH (RBC) [Entitic mass] 28.9 pg 26.0 - 34.0 pg [facility] MCHC (RBC) [Mass/Vol] 32.5 g/dL 30.5 - 36.0 g/dL [facility] MCV (RBC) [Entitic vol] 88.9 fL 80.0 - 100.0 fL [facility] Monocytes (Bld) [#/Vol] 0.70 10*3/uL <0.87 k/uL [facility] Monocytes/100 WBC (Bld) 6.4 % [facility] Neutrophils (Bld) [#/Vol] 6.63 10*3/uL 1.45 - 7.50 k/uL [facility] Neutrophils/100 WBC (Bld) 60.5 % [facility] Nucleated RBC (Bld) [#/Vol] <0.01 k/uL [facility] Nucleated RBC/100 WBC (Bld) [Ratio] 0.0 /100 WBC [facility] Platelet mean volume (Bld) [Entitic vol] 9.6 fL 9.0 - 12.7 fL [facility] Platelets (Bld) [#/Vol] 355 10*3/uL 150 - 400 k/uL [facility] RBC (Bld) [#/Vol] 4.50 10*6/uL 3.90 - 5.2 0 m/uL [facility] WBC (Bld) [#/Vol] 10.97 10*3/uL 3.70 - 11 .00 k/uL [facility] Calcium.ionized [Moles/Vol]o n 03-04-2022 Calcium.ionized (Bld) [Mass/Vol] 1.26 mmol/L 1.08 - 1.30 mmol/L [facility] Calcium.ionized adjusted to pH 7.4 (Bld) [Moles/Vol] 1.25 mmol/L 1.08 - 1.30 mmol/L [facility] Comprehensive metabolic 2000 panelon 03-04-2022 Albumin [Mass/Vol] 4.3 g/dL 3.9 - 4.9 g/dL [facility] ALP [Catalytic activity/Vol] 70 U/L 34 - 123 U/L [facility] ALT [Catalytic activity/Vol] 26 U/L 7 - 38 U/L [facility] Anion gap [Moles/Vol] 7 mmol/L Low 9 - 18 mmol/L [facility] AST [Catalytic activity/Vol] 12 U/L Low 13 - 35 U/L [facility] Bilirubin [Mass/Vol] 0.2 mg/dL 0.2 - 1 .3 mg/dL [facility] Calcium [Mass/Vol] 9.3 mg/dL 8.5 - 10. 2 mg/dL [facility] Chloride [Moles/Vol] 103 mmol/L 97 - 10 5 mmol/L [facility] CO2 [Moles/Vol] 28 mmol/L 22 - 30 mmol/L [facility] Creatinine [Mass/Vol] 0.69 mg/dL 0.58 - 0.96 mg/dL [facility] Estimated Glomerular Filtration Rate 112 mL/min/1.73m >=60 mL/min/1.73m [facility] Glucose [Mass/Vol] 100 mg/dL High 74 - 99 mg/dL [facility] Potassium [Moles/Vol] 3.9 mmol/L 3.7 - 5.1 mmol/L [facility] Protein [Mass/Vol] 7.0 g/dL 6.3 - 8.0 g/dL [facility] Sodium [Moles/Vol] 138 mmol/L 136 - 144 mmol/L [facility] Urea nitrogen [Mass/Vol] 12 mg/dL 7 - 21 mg/dL [facility] LD LACTATE DEHYDROon 022 LDH [Catalytic activity/Vol] 135 U/L 135 - 214 U/L [facility] PHOSPHORUS INORGANICon 03-04 Phosphate [Mass/Vol] 3.2 mg/dL 2.7 - 4 .8 mg/dL [facility] URIC ACID BLOODon 03-04-2022 Urate [Mass/Vol] 5.2 mg/dL 2.5 - 6.6 mg/dL [facility] IMMUNOGLOBULINS IGA/IGM/IGG/ IGE QUANTITAon 02-20-2022 Immunoglobulin A, Qn, Serum 189 mg/dL Normal 87-352 [facility] Comment on above: Result Comment: Perf ormed at: CB Performed By: #### Tye MELO THYLC #### [facility] [address] [address] [address] Manda York Immunoglobulin E, Total 10 IU/mL Normal 6-495 [facility] Comment on above: Result Comment: Perf ormed at: BN Performed By: #### Tye MELO THYLC #### [facility] [address] [address] [address] Manda York Immunoglobulin G, Qn, Serum 598 mg/dL Normal 586-1602 [facility] Comment on above: Result Comment: Perf ormed at: CB Performed By: #### LEANN PATRICKC #### [facility] [address] [address] [address] Manda York Immunoglobulin M, Qn, Serum 493 mg/dL Critically high 26-217 [facility] Comment on above: Result Comment: Perf ormed at: CB Performed By: #### Tye MELO THYLC #### [facility] [address] [address] [address] Manda York CHRISTIAN by IFAon 02-19-2022 Antinuclear Antibodies, IFA Negative Normal [facility] Comment on above: Result Comment: Nega tive <1:80 Borderline 1:80 Positive >1:80 ICAP nomenclature: AC-0 For more information about Hep-2 cell patterns use ANApatterns.org, the official website for the International Consensus on Antinuclear Antibody (CHRISTIAN) Patterns (ICAP). Performed By: #### LEANN PATRICKC #### [facility] [address] [address] [address] Manda York THYROID ANTIBODIESon Thyroglobulin Antibody <1.0 Normal 0.0-0.9 [facility] Comment on above: Result Comment: Thyr oglobulin Antibody measured by [employer] Performed By: #### F T4 #### [facility] [address] [place] [address] Dr. Manda York Thyroid Peroxidase (TPO) Ab <8 Normal 0-34 [facility] Comment on above: Performed By: #### F T4 #### [facility] [address] [place] [address] Dr. Manda York PROTEIN ELECTROPHERESISon Albumin [Mass/Vol] 3.2 g/dL Normal 2.9-4.4 [facility] Comment on above: Performed By: #### F T4 #### [facility] [address] [place] [address] Dr. Manad York Albumin/Globulin [Mass ratio] 1.0 {ratio} Normal 0.7-1.7 [facility] Comment on above: Performed By: #### F T4 #### [facility] [address] [place] [address] Dr. Manda York Qlhgu-9-Shxywalp 0.2 g/dL Normal 0.0-0.4 [facility] Comment on above: Performed By: #### F T4 #### [facility] [address] [place] [address] Dr. Manda York Xyntn-6-Rtziewnq 0.9 g/dL Normal 0.4-1.0 [facility] Comment on above: Performed By: #### F T4 #### [facility] [address] [place] [address] Dr. Manda York Beta Globulin 1.2 g/dL Normal 0.7-1.3 [facility] Comment on above: Performed By: #### F T4 #### [facility] [address] [place] [address] Dr. Manda York Gamma Globulin 0.9 g/dL Normal 0.4-1.8 [facility] Comment on above: Performed By: #### F T4 #### [facility] [address] [place] [address] Dr. Manda York Globulin (S) [Mass/Vol] 3.2 g/dL Normal 2.2-3.9 [facility] Comment on above: Performed By: #### F T4 #### [facility] [address] [place] [address] Dr. Manda York M-Jose De Jesus Not Observed Normal Not Observed [facility] Comment on above: Performed By: #### F T4 #### [facility] [address] [place] [address] Dr. Manda York PDF . Normal [facility] Comment on above: Performed By: #### F T4 #### [facility] [address] [place] [address] Dr. Manda York Please note: Comment Normal [facility] Comment on above: Result Comment: Prot ein electrophoresis scan will follow via computer, mail, or design verification engineer delivery. Performed By: #### F T4 #### [facility] [address] [place] [address] Dr. Manda York Protein [Mass/Vol] 6.4 g/dL Normal 6.0-8.5 [facility] Comment on above: Performed By: #### F T4 #### [facility] [address] [place] [address] Dr. Madna York SLE PROFILE Aon 02-16-2022 Anti-DNA (DS) Ab Qn 9 IU/mL Normal 0-9 [facility] Comment on above: Result Comment: Nega tive <5 Equivocal 5 - 9 Positive >9 Performed By: #### S LUIGI MELO #### [facility] [address] [place] [address] Dr. Manda York Antichromatin Antibodies <0.2 Normal 0.0-0.9 [facility] Comment on above: Performed By: #### S LUIGI MELO #### [facility] [address] [place] [address] Dr. Manda York RA Latex Turbid. <10.0 Normal <14.0 [facility] Comment on above: Performed By: #### S LEANN MELOC #### [facility] [address] [place] [address] Dr. Manda York [employer] CONSULTANT Antibodies <0.2 Normal 0.0-0.9 [facility] Comment on above: Performed By: #### LEANN PATRICKC #### [facility] [address] [place] [address] Dr. Manda York Sjogryaniv'tye Anti-SS-A <0.2 Normal 0.0-0.9 [facility] Comment on above: Performed By: #### S LUIGI MELO #### [facility] [address] [place] [address] Dr. Manda Solorzanoogryaniv'tye Anti-SS-B <0.2 Normal 0.0-0.9 [facility] Comment on above: Performed By: #### LUIGI PATRICK #### [facility] [address] [place] [address] Dr. Manda York Schneider Antibodies <0.2 Normal 0.0-0.9 [facility] Comment on above: Performed By: #### LUIGI PATRICK #### [facility] [address] [place] [address] Dr. Manda York ANTISTREPTOLYSIN O AB (ASO)o n 02-15-2022 Antistreptolysin O Ab 49.6 IU/mL Normal 0.0-200.0 [facility] Comment on above: Performed By: #### A SOAB #### [facility] [address] [place] [address] Dr. Manda York MICROALBUMIN URINEon 022 Albumin, Urine <3.0 Normal Not Estab. [facility] Comment on above: Result Comment: Ve rified by repeat analysis Performed By: #### C BC #### [facility] [address] [place] [address] Dr. Manda York T4, T3U, FTI LABCORPon 02-15 Free Thyroxine Index 2.6 Normal 1.2-4.9 [facility] Comment on above: Performed By: #### S LUIGI MELO #### [facility] [address] [place] [address] Dr. Manda York T3 Uptake 26 % Normal 24-39 [facility] Comment on above: Performed By: #### S LEANN MELOC #### [facility] [address] [place] [address] Dr. Manda York T4 [Mass/Vol] 9.9 ug/dL Normal 4.5-12.0 [facility] Comment on above: Performed By: #### S LEANN MELO #### [facility] [address] [place] [address] Dr. Manda York CBC AUTO DIFFon 02-14-2022 BASO # 0.1 103/ul Normal 0.0-0.1 [facility] Comment on above: Performed By: #### U AMIC #### [facility] [address] [place] [address] Dr. Manda York Basophils/100 WBC (Bld) 0.6 % Normal 0.2-2.0 [facility] Comment on above: Performed By: #### U AMIC #### [facility] [address] [place] [address] Dr. Manda York EO # 0.3 103/ul Normal 0.0-0.7 [facility] Comment on above: Performed By: #### U AMIC #### [facility] [address] [place] [address] Dr. Manda York Eosinophils/100 WBC (Bld) 3.4 % Normal 0.9-7.0 [facility] Comment on above: Performed By: #### U AMIC #### [facility] [address] [place] [address] Dr. Manda York Erythrocyte distribution width (RBC) [Ratio] 14.6 % Normal 11.0-15.0 [facility] Comment on above: Performed By: #### U AMIC #### [facility] [address] [place] [address] Dr. Manda York Hematocrit (Bld) [Volume fraction] 39.1 % Normal 36.0-48.0 [facility] Comment on above: Performed By: #### U AMIC #### [facility] [address] [address] [address] Manda York Hemoglobin (Bld) [Mass/Vol] 12.4 g/dL Normal 12.0-16.0 [facility] Comment on above: Performed By: #### U AMIC #### [facility] [address] [address] [address] Manda York IG # 0.03 10e3/ul Normal 0.00-0.03 [facility] Comment on above: Performed By: #### U AMIC #### [facility] [address] [address] [address] Manda York IG % 0.3 % Normal 0.0-0.5 [facility] Comment on above: Performed By: #### U AMIC #### [facility] [address] [address] [address] Manda York LYMPH # 3.6 103/ul Normal 1.2-3.8 [facility] Comment on above: Performed By: #### U AMIC #### [facility] [address] [address] [address] Manda York Lymphocytes/100 WBC (Bld) 39.9 % Normal 20.5-60.0 [facility] Comment on above: Performed By: #### U AMIC #### [facility] [address] [address] [address] Manda York MANUAL DIFF REQ NO Normal [facility] Comment on above: Performed By: #### U AMIC #### [facility] [address] [address] [address] Manda York MCH (RBC) [Entitic mass] 28.4 pg Normal 26.7-34.0 [facility] Comment on above: Performed By: #### U AMIC #### [facility] [address] [address] [address] Manda York MCHC (RBC) [Mass/Vol] 31.7 g/dL Normal 29.9-35.2 [facility] Comment on above: Performed By: #### U AMIC #### [facility] [address] [address] [address] Manda York MCV (RBC) [Entitic vol] 89.7 fL Normal 81.0-99.0 [facility] Comment on above: Performed By: #### U AMIC #### [facility] [address] [address] [address] Manda York MONO # 0.7 103/ul Normal 0.3-0.8 [facility] Comment on above: Performed By: #### U AMIC #### [facility] [address] [address] [address] Manda York Monocytes/100 WBC (Bld) 7.3 % Normal 1.7-12.0 [facility] Comment on above: Performed By: #### U AMIC #### [facility] [address] [place] [address] Dr. Manda York NEUT # 4.4 103/ul Normal 1.4-6.5 [facility] Comment on above: Performed By: #### U AMIC #### [facility] [address] [place] [address] Dr. Manda York Neutrophils/100 WBC (Bld) 48.5 % Normal 43.0-75.0 [facility] Comment on above: Performed By: #### U AMIC #### [facility] [address] [place] [address] Dr. Manda York Platelet mean volume (Bld) [Entitic vol] 10.1 fL Normal 9.5-13.5 [facility] Comment on above: Performed By: #### U AMIC #### [facility] [address] [place] [address] Dr. Manda York PLT 310 103/ul Normal 150-450 [facility] Comment on above: Performed By: #### U AMIC #### [facility] [address] [address] [address] Manda York RBC 4.36 106/ul Normal 4.20-5.40 [facility] Comment on above: Performed By: #### U AMIC #### [facility] [address] [place] [address] Dr. Manda York WBC 9.0 103/ul Normal 4.0-11.0 [facility] Comment on above: Performed By: #### U AMIC #### [facility] [address] [place] [address] Dr. Manda York CRPon 02-14-2022 CRP [Mass/Vol] mg/L Normal <=1.0 [facility] Comment on above: Performed By: #### U AMIC #### [facility] [address] [place] [address] Dr. Manda York CULTURE URINEon 02-14-2022 CULTURE URINE Culture Observations : LIGHT GROWTH OF MIXED GENITAL AMBER. NO POTENTIAL PATHOGENS SEEN. Normal [facility] Comment on above: Performed By: #### C BC #### [facility] [address] [place] [address] Dr. Manda York PROF 14(COMP METB)on 022 Albumin [Mass/Vol] 3.5 g/dL Normal 3.4-5.0 [facility] Comment on above: Performed By: #### U AMIC #### [facility] [address] [place] [address] Dr. Manda York Albumin/Globulin [Mass ratio] 1.0 {ratio} Normal [facility] Comment on above: Performed By: #### U AMIC #### [facility] [address] [place] [address] Dr. Manda York ALP [Catalytic activity/Vol] 71 U/L Normal 46-116 [facility] Comment on above: Performed By: #### U AMIC #### [facility] [address] [place] [address] Dr. Manda York ALT [Catalytic activity/Vol] 46 U/L Normal 14-59 [facility] Comment on above: Performed By: #### U AMIC #### [facility] [address] [place] [address] Dr. Manda York Anion gap [Moles/Vol] 11.6 mmol/L Normal [facility] Comment on above: Performed By: #### U AMIC #### [facility] [address] [address] [address] Manda York AST [Catalytic activity/Vol] 15 U/L Normal 15-37 [facility] Comment on above: Performed By: #### U AMIC #### [facility] [address] [address] [address] Manda York Bilirubin [Mass/Vol] 0.2 mg/dL Normal 0.2-1.0 [facility] Comment on above: Performed By: #### U AMIC #### [facility] [address] [address] [address] Manda York Calcium [Mass/Vol] 8.7 mg/dL Normal 8.5-10.1 [facility] Comment on above: Performed By: #### U AMIC #### [facility] [address] [address] [address] Manda York Chloride [Moles/Vol] 104 mmol/L Normal 98-107 [facility] Comment on above: Performed By: #### U AMIC #### [facility] [address] [address] [address] Manda York CO2 [Moles/Vol] 25.1 mmol/L Normal 21.0-32.0 [facility] Comment on above: Performed By: #### U AMIC #### [facility] [address] [address] [address] Manda York Creatinine [Mass/Vol] 0.80 mg/dL Normal 0.55-1.02 [facility] Comment on above: Performed By: #### U AMIC #### [facility] [address] [address] [address] Manda York EGFR-AF GABONESE >60 Normal >=60 [facility] Comment on above: Performed By: #### U AMIC #### [facility] [address] [address] [address] Manda York EGFR-NON AF GABONESE >60 Normal >=60 [facility] Comment on above: Performed By: #### U AMIC #### [facility] [address] [address] [address] Manda Yokr Globulin (S) [Mass/Vol] 3.6 g/dL Normal [facility] Comment on above: Performed By: #### U AMIC #### [facility] [address] [address] [address] Manda York Glucose [Mass/Vol] 92 mg/dL Normal 74-106 [facility] Comment on above: Performed By: #### U AMIC #### [facility] [address] [address] [address] Manda York Potassium [Moles/Vol] 3.7 mmol/L Normal 3.5-5.1 [facility] Comment on above: Performed By: #### U AMIC #### [facility] [address] [address] [address] Manda York Protein [Mass/Vol] 7.1 g/dL Normal 6.4-8.2 [facility] Comment on above: Performed By: #### U AMIC #### [facility] [address] [address] [address] Manda York Sodium [Moles/Vol] 137 mmol/L Normal 136-145 [facility] Comment on above: Performed By: #### U AMIC #### [facility] [address] [address] [address] Manda York Urea nitrogen [Mass/Vol] 17.0 mg/dL Normal 7.0-18.0 [facility] Comment on above: Performed By: #### U AMIC #### [facility] [address] [address] [address] Manda York Urea nitrogen/Creatinine [Mass ratio] 21.2 mg/mg Normal [facility] Comment on above: Performed By: #### U AMIC #### [facility] [address] [address] [address] Manda York SED RATE [facility] 2021 SED RATE 40 mm/hr Critically high <=20 [facility] Comment on above: Performed By: #### S EDR #### [facility] [address] [address] [address] Manda York TSHon 02-14-2022 TSH 1.155 uIU/mL Normal 0.358-3.740 [facility] Comment on above: Performed By: #### U AMIC #### [facility] [address] [address] [address] Manda York UA RANDOM W/MICROSCOPICon BACTERIA NONE SEEN Normal NONE SEEN [facility] Comment on above: Performed By: #### U AMIC #### [facility] [address] [place] [address] Dr. Manda York Bilirubin Ql (U) Negative Normal NEGATIVE [facility] Comment on above: Performed By: #### U AMIC #### [facility] [address] [place] [address] Dr. Manda York CAST NONE SEEN Normal NONE SEEN [facility] Comment on above: Performed By: #### U AMIC #### [facility] [address] [place] [address] Dr. Manda York Clarity (U) CLEAR Normal CLEAR [facility] Comment on above: Performed By: #### U AMIC #### [facility] [address] [place] [address] Dr. Manda York Color (U) LT. YELLOW Normal YELLOW [facility] Comment on above: Performed By: #### U AMIC #### [facility] [address] [place] [address] Dr. Manda York Crystals LM Nom (Urine sed) NONE SEEN Normal NONE SEEN [facility] Comment on above: Performed By: #### U AMIC #### [facility] [address] [place] [address] Dr. Manda York Epithelial cells LM Ql (Urine sed) RARE Normal NONE SEEN /RARE [facility] Comment on above: Performed By: #### U AMIC #### [facility] [address] [place] [address] Dr. Manda York Glucose Ql (U) Negative Normal NEGATIVE [facility] Comment on above: Performed By: #### U AMIC #### [facility] [address] [address] [address] Manda York Hemoglobin Ql (U) Negative Normal NEGATIVE [facility] Comment on above: Performed By: #### U AMIC #### [facility] [address] [address] [address] Manda York Ketones Ql (U) Negative Normal NEGATIVE [facility] Comment on above: Performed By: #### U AMIC #### [facility] [address] [address] [address] Manda York LEUKOCYTES Negative Normal NEGATIVE [facility] Comment on above: Performed By: #### U AMIC #### [facility] [address] [place] [address] Dr. Manda York MUCOUS NONE SEEN Normal NONE SEEN [facility] Comment on above: Performed By: #### U AMIC #### [facility] [address] [place] [address] Dr. Manda York Nitrite Ql (U) Negative Normal NEGATIVE [facility] Comment on above: Performed By: #### U AMIC #### [facility] [address] [place] [address] Dr. Manda York pH (U) 6.0 [pH] Normal 5-9 [facility] Comment on above: Performed By: #### U AMIC #### [facility] [address] [place] [address] Dr. Manda York RBC NONE SEEN Abnormal 0-2 [facility] Comment on above: Performed By: #### U AMIC #### [facility] [address] [place] [address] Dr. Manda York SPEC GRAVITY 1.005 Normal 1.005-<=1.02 5 [facility] Comment on above: Performed By: #### U AMIC #### [facility] [address] [place] [address] Dr. Manda York UA PROTEIN Negative Normal NEGATIVE/ TRACE [facility] Comment on above: Performed By: #### U AMIC #### [facility] [address] [place] [address] Dr. Manda York Urobilinogen Qn (U) 0.2 {Carmella'U}/dL Normal 0.2 - 1. 0 [facility] Comment on above: Performed By: #### U AMIC #### [facility] [address] [place] [address] Dr. Manda York WBC NONE SEEN Normal NONE SEEN [facility] Comment on above: Performed By: #### U AMIC #### [facility] [address] [place] [address] Dr. Manda York URIC ACID SERUMon 02-14-2022 Urate [Mass/Vol] 4.2 mg/dL Normal 2.6-6.0 [facility] Comment on above: Performed By: #### U AMIC #### [facility] [address] [place] [address] Dr. Manda York VITAMIN D 25 OHon 02-14-2022 VIT D 25-OH 22.4 ng/mL Normal [facility] Comment on above: Performed By: #### F T4 #### [facility] [address] [place] [address] Dr. Manda York VIT D RANGES SEE BELOW Normal [facility] Comment on above: Result Comment: <20 ng/mL Vit D deficient 20 - <30 ng/mL Vit D insufficient 30 - 100 ng/mL Vit D sufficient >100 ng/mL Potential Toxicity Performed By: #### F T4 #### [facility] [address] [place] [address] Dr. Manda York METANEPHRINES FRAC. QNT 24 H R URINEon 11-28-2021 Metanephrine, U,24hr Comment Normal 36-209 [facility] Comment on above: Result Comment: No t otal volume submitted. Unable to calculate 24 hour result. Performed By: #### S LUIGI MELO #### [facility] [address] [place] [address] Dr. Manda York Metanephrine, Ur 57 ug/L Normal Undefined [facility] Comment on above: Performed By: #### S LEANN MELOC #### [facility] [address] [place] [address] Dr. Manda York Normetanephr.,U,24h Comment Normal 131-612 [facility] Comment on above: Result Comment: No t otal volume submitted. Unable to calculate 24 hour result. Performed By: #### LEANN PATRICK #### [facility] [address] [place] [address] Dr. Manda York Normetanephrine, Ur 116 ug/L Normal Undefined [facility] Comment on above: Performed By: #### LEANN PATRICK #### [facility] [address] [place] [address] Dr. Manda York METANEPHRINES PLASMA FREEon 11-27-2021 Metanephrine, Pl 22.1 pg/mL Normal 0.0-88.0 [facility] Comment on above: Performed By: #### LEANN PATRICK #### [facility] [address] [place] [address] Dr. Manda York Normetanephrine, Pl 50.7 pg/mL Normal 0.0-218.9 [facility] Comment on above: Performed By: #### LEANN PATRICK #### [facility] [address] [place] [address] Dr. Manda York CMV PLASMA PCRon 11-19-2021 CMV Quant DNA PCR (Plasma) Negative Normal Negative [facility] Comment on above: Result Comment: No C MV DNA detected. The quantitative range of this assay is 200 to 1 million IU/mL. Performed By: #### LEANN PATRICK #### [facility] [address] [place] [address] Dr. Manda York log10 CMV Qn DNA Pl UPTCAL Normal [facility] Comment on above: Result Comment: Unab le to calculate result since non-numeric result obtained for component test. Performed By: #### LEANN PATRICKC #### [facility] [address] [place] [address] Dr. Manda York CMV AB IGMon 11-18-2021 Cytomegalovirus (CMV) Ab, IgM 43.2 AU/mL Critically high 0.0-29.9 [facility] Comment on above: Result Comment: Nega tive <30.0 Equivocal 30.0 - 34.9 Positive >34.9 A positive result is generally indicative of acute infection, reactivation or persistent IgM production. Performed By: #### S LUIGI MELO #### [facility] [address] [place] [address] Dr. Manda York CMV AB, IGGon 11-18-2021 Cytomegalovirus (CMV) Ab, IgG >10.00 Critically high 0.00-0.59 [facility] Comment on above: Result Comment: Nega tive <0.60 Equivocal 0.60 - 0.69 Positive >0.69 Performed By: #### C MVIGG #### [facility] [address] [place] [address] Dr. Manda York CBC AUTO DIFFon 11-17-2021 BASO # 0.1 103/ul Normal 0.0-0.1 [facility] Comment on above: Performed By: #### C BC #### [facility] [address] [place] [address] Dr. Manda York Basophils/100 WBC (Bld) 0.6 % Normal 0.2-2.0 [facility] Comment on above: Performed By: #### C BC #### [facility] [address] [place] [address] Dr. Manda York EO # 0.2 103/ul Normal 0.0-0.7 [facility] Comment on above: Performed By: #### C BC #### [facility] [address] [place] [address] Dr. Manda York Eosinophils/100 WBC (Bld) 2.3 % Normal 0.9-7.0 [facility] Comment on above: Performed By: #### C BC #### [facility] [address] [place] [address] Dr. Manda York Erythrocyte distribution width (RBC) [Ratio] 14.2 % Normal 11.0-15.0 [facility] Comment on above: Performed By: #### C BC #### [facility] [address] [place] [address] Dr. Manda York Hematocrit (Bld) [Volume fraction] 40.2 % Normal 36.0-48.0 [facility] Comment on above: Performed By: #### C BC #### [facility] [address] [place] [address] Dr. Manda York Hemoglobin (Bld) [Mass/Vol] 12.8 g/dL Normal 12.0-16.0 [facility] Comment on above: Performed By: #### C BC #### [facility] [address] [place] [address] Dr. Manda York IG # 0.02 10e3/ul Normal 0.00-0.03 [facility] Comment on above: Performed By: #### C BC #### [facility] [address] [place] [address] Dr. Manda York IG % 0.2 % Normal 0.0-0.5 [facility] Comment on above: Performed By: #### C BC #### [facility] [address] [place] [address] Dr. Manda York LYMPH # 2.5 103/ul Normal 1.2-3.8 [facility] Comment on above: Performed By: #### C BC #### [facility] [address] [place] [address] Dr. Manda York Lymphocytes/100 WBC (Bld) 24.9 % Normal 20.5-60.0 [facility] Comment on above: Performed By: #### C BC #### [facility] [address] [place] [address] Dr. Manda York MANUAL DIFF REQ NO Normal [facility] Comment on above: Performed By: #### C BC #### [facility] [address] [place] [address] Dr. Manda York MCH (RBC) [Entitic mass] 27.9 pg Normal 26.7-34.0 [facility] Comment on above: Performed By: #### C BC #### [facility] [address] [place] [address] Dr. Manda York MCHC (RBC) [Mass/Vol] 31.8 g/dL Normal 29.9-35.2 [facility] Comment on above: Performed By: #### C BC #### [facility] [address] [address] [address] Manda York MCV (RBC) [Entitic vol] 87.6 fL Normal 81.0-99.0 [facility] Comment on above: Performed By: #### C BC #### [facility] [address] [address] [address] Manda York MONO # 0.6 103/ul Normal 0.3-0.8 [facility] Comment on above: Performed By: #### C BC #### [facility] [address] [address] [address] Manda York Monocytes/100 WBC (Bld) 6.3 % Normal 1.7-12.0 [facility] Comment on above: Performed By: #### C BC #### [facility] [address] [place] [address] Dr. Manda York NEUT # 6.5 103/ul Normal 1.4-6.5 [facility] Comment on above: Performed By: #### C BC #### [facility] [address] [place] [address] Dr. Manda York Neutrophils/100 WBC (Bld) 65.7 % Normal 43.0-75.0 [facility] Comment on above: Performed By: #### C BC #### [facility] [address] [address] [address] Manda York Platelet mean volume (Bld) [Entitic vol] 10.1 fL Normal 9.5-13.5 [facility] Comment on above: Performed By: #### C BC #### [facility] [address] [address] [address] Manda York PLT 304 103/ul Normal 150-450 [facility] Comment on above: Performed By: #### C BC #### [facility] [address] [address] [address] Manda York RBC 4.59 106/ul Normal 4.20-5.40 [facility] Comment on above: Performed By: #### C BC #### [facility] [address] [place] [address] Dr. Manda York WBC 9.9 103/ul Normal 4.0-11.0 [facility] Comment on above: Performed By: #### C BC #### [facility] [address] [place] [address] Dr. Manda York PROF 14(COMP METB)on 022 Albumin [Mass/Vol] 3.7 g/dL Normal 3.4-5.0 [facility] Comment on above: Performed By: #### C BC #### [facility] [address] [place] [address] Dr. Manda York Albumin/Globulin [Mass ratio] 1.0 {ratio} Normal [facility] Comment on above: Performed By: #### C BC #### [facility] [address] [place] [address] Dr. Manda York ALP [Catalytic activity/Vol] 65 U/L Normal 46-116 [facility] Comment on above: Performed By: #### C BC #### [facility] [address] [place] [address] Dr. Manda York ALT [Catalytic activity/Vol] 35 U/L Normal 14-59 [facility] Comment on above: Performed By: #### C BC #### [facility] [address] [place] [address] Dr. Manda York Anion gap [Moles/Vol] 13.0 mmol/L Normal [facility] Comment on above: Performed By: #### C BC #### [facility] [address] [place] [address] Dr. Manda York AST [Catalytic activity/Vol] 12 U/L Critically low 15-37 [facility] Comment on above: Performed By: #### C BC #### [facility] [address] [place] [address] Dr. Manda York Bilirubin [Mass/Vol] 0.2 mg/dL Normal 0.2-1.0 [facility] Comment on above: Performed By: #### C BC #### [facility] [address] [place] [address] Dr. Manda York Calcium [Mass/Vol] 8.7 mg/dL Normal 8.5-10.1 [facility] Comment on above: Performed By: #### C BC #### [facility] [address] [place] [address] Dr. Manda York Chloride [Moles/Vol] 104 mmol/L Normal 98-107 [facility] Comment on above: Performed By: #### C BC #### [facility] [address] [place] [address] Dr. Manda York CO2 [Moles/Vol] 24.9 mmol/L Normal 21.0-32.0 [facility] Comment on above: Performed By: #### C BC #### [facility] [address] [place] [address] Dr. Manda York Creatinine [Mass/Vol] 0.77 mg/dL Normal 0.55-1.02 [facility] Comment on above: Performed By: #### C BC #### [facility] [address] [place] [address] Dr. Manda York EGFR-AF GABONESE >=60 Normal >=60 [facility] Comment on above: Performed By: #### C BC #### [facility] [address] [place] [address] Dr. Manda York EGFR-NON AF GABONESE >=60 Normal >=60 [facility] Comment on above: Performed By: #### C BC #### [facility] [address] [place] [address] Dr. Manda York Globulin (S) [Mass/Vol] 3.8 g/dL Normal [facility] Comment on above: Performed By: #### C BC #### [facility] [address] [place] [address] Dr. Manda York Glucose [Mass/Vol] 110 mg/dL Critically high 74-106 [facility] Comment on above: Performed By: #### C BC #### [facility] [address] [place] [address] Dr. Manda York Potassium [Moles/Vol] 3.9 mmol/L Normal 3.5-5.1 [facility] Comment on above: Performed By: #### C BC #### [facility] [address] [place] [address] Dr. Manda York Protein [Mass/Vol] 7.5 g/dL Normal 6.4-8.2 [facility] Comment on above: Performed By: #### C BC #### [facility] [address] [address] [address] Manda York Sodium [Moles/Vol] 138 mmol/L Normal 136-145 [facility] Comment on above: Performed By: #### C BC #### [facility] [address] [place] [address] Dr. Manda York Urea nitrogen [Mass/Vol] 17.0 mg/dL Normal 7.0-18.0 [facility] Comment on above: Performed By: #### C BC #### [facility] [address] [place] [address] Dr. Manda York Urea nitrogen/Creatinine [Mass ratio] 22.1 mg/mg Normal [facility] Comment on above: Performed By: #### C BC #### [facility] [address] [place] [address] Dr. Manda York SED RATE [facility] 2021 SED RATE 45 mm/hr Critically high <=20 [facility] Comment on above: Performed By: #### F T4 #### [facility] [address] [place] [address] Dr. Manda York CHRISTIAN EIA W/REFLEX 5 BIOMARKER Son 10-06-2021 CHRISTIAN Direct Positive Abnormal Negative [facility] Comment on above: Performed By: #### C BC #### [facility] [address] [place] [address] Dr. Madna York Anti-DNA (DS) Ab Qn 10 IU/mL Critically high 0-9 [facility] Comment on above: Result Comment: Nega tive <5 Equivocal 5 - 9 Positive >9 Performed By: #### C BC #### [facility] [address] [place] [address] Dr. Manda York [employer] Antibodies <0.2 Normal 0.0-0.9 [facility] Comment on above: Performed By: #### C BC #### [facility] [address] [place] [address] [address] [address] Manda York SEE BELOW: Comment Normal [facility] Comment on above: Result Comment: Auto [...] Sm (anti-Schneider) SLE 15 - 30% --------- [employer] Mixed Connective Tissue Disease 95% (U1 nRNP, SLE 30 - 50% anti-ribonucleoprotein) Polymyositis and/or Dermatomyositis 20% --------- Scl-70 (antiDNA Scleroderma (diffuse) 20 - 35% topoisomerase) Crest 13% --------- Felicita-1 Polymyositis and/or Dermatomyositis 20 - 40% --------- Centromere B Scleroderma - Crest variant 80% Performed By: #### C BC #### [facility] [address] [place] [address] Dr. Manda Solorzanoogryaniv'tye Anti-SS-A <0.2 Normal 0.0-0.9 [facility] Comment on above: Performed By: #### C BC #### [facility] [address] [place] [address] Dr. Manda Solorzanoogryaniv'tye Anti-SS-B <0.2 Normal 0.0-0.9 [facility] Comment on above: Performed By: #### C BC #### [facility] [address] [place] [address] Dr. Yilan York Schneider Antibodies <0.2 Normal 0.0-0.9 [facility] Comment on above: Performed By: #### C BC #### [facility] [address] [place] [address] Dr. Manda York CMV PLASMA PCRon 10-06-2021 CMV Quant DNA PCR (Plasma) Negative Normal Negative [facility] Comment on above: Result Comment: No C MV DNA detected. The quantitative range of this assay is 200 to 1 million IU/mL. Performed By: #### C MVPL #### [facility] [address] [place] [address] Dr. Manda York log10 CMV Qn DNA Pl UPTCAL Normal [facility] Comment on above: Result Comment: Unab le to calculate result since non-numeric result obtained for component test. Performed By: #### C MVPL #### [facility] [address] [place] [address] Dr. Manda York CMV AB IGMon 2021 Cytomegalovirus (CMV) Ab, IgM 35.5 AU/mL Critically high 0.0-29.9 [facility] Comment on above: Result Comment: Nega tive <30.0 Equivocal 30.0 - 34.9 Positive >34.9 A positive result is generally indicative of acute infection, reactivation or persistent IgM production. Performed By: #### S LEANN MELOC #### [facility] [address] [place] [address] Dr. Manda York CMV AB, IGGon 2021 Cytomegalovirus (CMV) Ab, IgG 6.30 U/mL Critically high 0.00-0.59 [facility] Comment on above: Result Comment: Nega tive <0.60 Equivocal 0.60 - 0.69 Positive >0.69 Performed By: #### S LEANN MELOC #### [facility] [address] [place] [address] Dr. Manda York CBC AUTO DIFFon 10-03-2021 BASO # 0.1 103/ul Normal 0.0-0.1 [facility] Comment on above: Performed By: #### C BC #### [facility] [address] [place] [address] Dr. Manda York Basophils/100 WBC (Bld) 0.7 % Normal 0.2-2.0 [facility] Comment on above: Performed By: #### C BC #### [facility] [address] [place] [address] Dr. Manda York EO # 0.2 103/ul Normal 0.0-0.7 [facility] Comment on above: Performed By: #### C BC #### [facility] [address] [place] [address] Dr. Manda York Eosinophils/100 WBC (Bld) 2.0 % Normal 0.9-7.0 [facility] Comment on above: Performed By: #### C BC #### [facility] [address] [place] [address] Dr. Manda York Erythrocyte distribution width (RBC) [Ratio] 14.4 % Normal 11.0-15.0 [facility] Comment on above: Performed By: #### C BC #### [facility] [address] [place] [address] Dr. Manda York Hematocrit (Bld) [Volume fraction] 37.2 % Normal 36.0-48.0 [facility] Comment on above: Performed By: #### C BC #### [facility] [address] [place] [address] Dr. Manda York Hemoglobin (Bld) [Mass/Vol] 12.3 g/dL Normal 12.0-16.0 [facility] Comment on above: Performed By: #### C BC #### [facility] [address] [place] [address] Dr. Manda York IG # 0.02 10e3/ul Normal 0.00-0.03 [facility] Comment on above: Performed By: #### C BC #### [facility] [address] [place] [address] Dr. Manda York IG % 0.2 % Normal 0.0-0.5 [facility] Comment on above: Performed By: #### C BC #### [facility] [address] [place] [address] Dr. Manda York LYMPH # 2.1 103/ul Normal 1.2-3.8 [facility] Comment on above: Performed By: #### C BC #### [facility] [address] [place] [address] Dr. Manda York Lymphocytes/100 WBC (Bld) 26.4 % Normal 20.5-60.0 [facility] Comment on above: Performed By: #### C BC #### [facility] [address] [place] [address] Dr. Manda York MANUAL DIFF REQ NO Normal [facility] Comment on above: Performed By: #### C BC #### [facility] [address] [place] [address] Dr. Manda York MCH (RBC) [Entitic mass] 29.2 pg Normal 26.7-34.0 [facility] Comment on above: Performed By: #### C BC #### [facility] [address] [place] [address] Dr. Manda York MCHC (RBC) [Mass/Vol] 33.1 g/dL Normal 29.9-35.2 [facility] Comment on above: Performed By: #### C BC #### [facility] [address] [place] [address] Dr. Manda York MCV (RBC) [Entitic vol] 88.4 fL Normal 81.0-99.0 [facility] Comment on above: Performed By: #### C BC #### [facility] [address] [place] [address] Dr. Manda York MONO # 0.5 103/ul Normal 0.3-0.8 [facility] Comment on above: Performed By: #### C BC #### [facility] [address] [place] [address] Dr. Manda York Monocytes/100 WBC (Bld) 6.7 % Normal 1.7-12.0 [facility] Comment on above: Performed By: #### C BC #### [facility] [address] [place] [address] Dr. Manda York NEUT # 5.2 103/ul Normal 1.4-6.5 [facility] Comment on above: Performed By: #### C BC #### [facility] [address] [place] [address] Dr. Manda York Neutrophils/100 WBC (Bld) 64.0 % Normal 43.0-75.0 [facility] Comment on above: Performed By: #### C BC #### [facility] [address] [place] [address] Dr. Manda York Platelet mean volume (Bld) [Entitic vol] 10.5 fL Normal 9.5-13.5 [facility] Comment on above: Performed By: #### C BC #### [facility] [address] [place] [address] Dr. Manda York PLT 265 103/ul Normal 150-450 [facility] Comment on above: Performed By: #### C BC #### [facility] [address] [place] [address] Dr. Manda York RBC 4.21 106/ul Normal 4.20-5.40 [facility] Comment on above: Performed By: #### C BC #### [facility] [address] [place] [address] Dr. Manda York WBC 8.1 103/ul Normal 4.0-11.0 [facility] Comment on above: Performed By: #### C BC #### [facility] [address] [place] [address] Dr. Manda York CRPon 10-03-2021 CRP [Mass/Vol] mg/L Normal <=1.0 [facility] Comment on above: Performed By: #### F T4 #### [facility] [address] [place] [address] Dr. [facility] mm/hr Critically high <=20 [facility] Comment on above: Performed By: #### C BC #### [facility] [address] [place] [address] Dr. Manda York CHLORIDE (POC)Ordered By: Jae Holley on 10-07-2020 Chloride [Moles/Vol] 106 mmol/L 98 - 10 7 mmol/L [employer] Work Phone: Catheterization and angiogra phy procedure details panelOrdered By: Jaren Holley on 10-07-2020 Cardiac Diagnostic R eport Demographics Patient TERA Torres Date of Study 10/07/2020 Name Date of 1980 Gender Female Age 40 year(s) Race Room [id number]^LEYDI^JAREN Height: 67 inch, 170.18 cm Number Corporate [id number] Weight: 234 pounds, 106.1 kg ID # Patient [id number] BSA: 2.16 m^2 BMI: 36.65 kg/m^2 Acct # MR # [id number] Performing Jaren Holley Physician Referring # Physician [...] Right coronary angiography. Contrast Material: - Isovue 89120 ml Fluoroscopy Time: Diagnostic: 2:12 minutes. Total: [...] assessed as CCS II according to the [place] clinical classification. Hemodynamics Condition: Baseline Room Air [...] ---------+ + !Aortic (more content not included)... [employer] Work Phone: Jr, pn Incoming C ardio Results From [facility] - 10/07/2020 10:37 AM EDT Cardiac Diagnostic Report Demographics Patient TERA Torres Date of Study 10/07/2020 Name Date of 1980 Gender Female Age 40 year(s) Race Room [id number]^LEYDI^JAREN Height: 67 inch, 170.18 cm Number Corporate [id number] Weight: 234 pounds, 106.1 kg ID # Patient [id number] BSA: 2.16 m^2 BMI: 36.65 kg/m^2 Acct # MR # [id number] Performing Jaren Holley Physician Referring # Physician [...] Right coronary angiography. Contrast Material: - Isovue 69828 ml Fluoroscopy Time: Diagnostic: 2:12 minutes. Total: [...] assessed as CCS II according to the [place] clinical classification. Hemodynamics Condition: Baseline Room Air [...] + ---------+ + Shunts Oxygen Values O2 [id number] [employer] Phone: [employer] Phone: [employer] Phone: Creatinine W/GFR Point of Ca reOrdered By: Jaren Holley on 10-07-2020 Creatinine [Mass/Vol] 0.64 mg/dL 0.51 - 1.19 mg/dL [employer] Phone: GFR Non- >60 >60 mL/min [employer] Phone: GFR/1.73 sq M.predicted MDRD (S/P/Bld) [Vol rate/Area] mL/min/{1.73_m2} >60 mL/min [employer] Phone: GFR/1.73 sq M.predicted MDRD (S/P/Bld) [Vol rate/Area] [employer] Phone: Comment on above: Average GFR for 40-4 9 years old: 99 mL/min/1.73sq m Chronic Kidney Disease: <60 mL/min/1.73sq m Kidney failure: <15 mL/min/1.73sq m eGFR calculated using average adult body mass. Additional eGFR calculator available at: http://www.Cargoh.com/multiple_crcl_2012.htm Hemoglobin and hematocrit, b loodOrdered By: Jaren Holley on 10-07-2020 Hematocrit (Bld) [Volume fraction] 41 % 36 - 46 % [employer] Phone: Hemoglobin (Bld) [Mass/Vol] 14.0 g/dL 12.0 - 16.0 g/dL [employer] Phone: No Panel InformationOrdered By: Jaren Holley on 10-07-2020 [employer] Phone: POCT GlucoseOrdered By: Anu Holley on 10-07-2020 Glucose [Mass/Vol] 98 mg/dL 74 - 100 mg/dL [employer] Phone: POCT urine pregnancyOrdered By: Jaren Holley on 10-07-2020 Beta HCG ( test) Ql (U) Negative NEGATIVE [employer] Phone: Comment on above: Specimens with hCG l evels near the threshold of the test (25 mIU/mL) may give a negative or indeterminate result. In such cases, another test should be performed with a new specimen in 48-72 hours. If early is suspected clinically in this setting, correlation with quantitative serum b-hCG level is suggested. [employer] Phone: POTASSIUM (POC)Ordered By: Al Holley on 10-07-2020 Potassium [Moles/Vol] 3.8 mmol/L 3.5 - 4.5 mmol/L [employer] Phone: Platelet Counton 10-07-2020 Platelets (Bld) [#/Vol] 299 10*3/uL Normal 138-453 [facility] Comment on above: Performed By: #### P LT #### [employer] [address] [place] [address] Flight Nurse: Rick Serrano MD Platelet countOrdered By: Jae Holley on 10-07-2020 Platelets (Bld) [#/Vol] 299 10*3/uL [employer] Phone: [employer] Phone: SODIUM (POC)Ordered By: nAu Holley on 10-07-2020 Sodium [Moles/Vol] 141 mmol/L 138 - 146 mmol/L [employer] Phone: Coding Summary.on 01-12-2019 Coding Summary. CODING DATE: 019 FINAL [facility] STATUS: Home (Routine DC) PAYOR: Medicaid EAPG [...] mass index (BMI) 34.0-34.9, adult Z79.899 Other terminal computer operator (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 However, the narrative phrase printed from the coding software may appear abbreviated, or result in slightly different terminology. Coded By: Luz Judd Date Saved: 01/12/2019 10:25 am [facility] Coding Summary. CODING DATE: 019 [facility] STATUS: Home (Routine DC) PAYOR: Medicaid [...] mass index (BMI) 34.0-34.9, adult Z79.899 Other terminal computer operator (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 However, the narrative phrase printed from the coding software may appear abbreviated, or result in slightly different terminology. Revised Coded By: Luz Judd Revised Date Saved: 01/12/2019 10:25 am [facility] XR Chest 2 Viewson 9 XR [...] Valenzuela M.D. Transcribed by: BILL Technologist: ZOILA [facility] Auto Diffon 01-11-2019 Basophils/100 WBC (Bld) 0.8 % Normal 0.0-2.0 [facility] Comment on above: Order Comment: Order Added by Discern Expert. Performed By: #### 1 [id number], 0979841, 0869614, 2437282, 87695733, 2055140, 2912139, 8872727, 0876662, 84748361, 2244208 #### [facility] [address] [place] [address] Basophils/Leukocytes Auto (Bld) [Pure # fraction] 0.1 E9/L Normal 0.0-0.2 [facility] Comment on above: Order Comment: Order Added by Discern Expert. Performed By: #### 1 1911560, 9280944, 0566922, 8518448, 88390749, 3351806, 9057178, 7264092, 4203591, 50154667, 4924305 #### [facility] [address] [place] [address] Eosinophils/100 WBC (Bld) 1.9 % Normal 0.0-8.0 [facility] Comment on above: Order Comment: Order Added by Discern Expert. Performed By: #### 1 5488616, 1920016, 6164311, 5507215, 68718072, 8853935, 3517937, 6087765, 4545148, 90815682, 2844259 #### [facility] [address] [place] [address] Eosinophils/Leukocyt es Auto (Bld) [Pure # fraction] 0.1 E9/L Normal 0.0-0.5 [facility] Comment on above: Order Comment: Order Added by Discern Expert. Performed By: #### 1 9522094, 8969461, 1532804, 9539481, 04883519, 3821875, 8732699, 7508841, 3982673, 32088587, 4401594 #### [facility] [address] [place] [address] Lymphocytes/100 WBC (Bld) 28.0 % Normal 14.0-50.0 [facility] Comment on above: Order Comment: Order Added by Discern Expert. Performed By: #### 1 3314556, 9257039, 6316903, 4750368, 04119363, 5922077, 8377729, 4023741, 9264574, 45454411, 8143169 #### [facility] [address] [place] [address] Lymphocytes/Leukocyt es Auto (Bld) [Pure # fraction] 2.2 E9/L Normal 1.0-4.0 [facility] Comment on above: Order Comment: Order Added by Discern Expert. Performed By: #### 1 9081683, 5296154, 8642405, 6302007, 69561691, 0917403, 9095304, 0764880, 6619777, 78597699, 4445727 #### [facility] [address] [place] [address] Monocytes/100 WBC (Bld) 7.0 % Normal 4.0-14.0 [facility] Comment on above: Order Comment: Order Added by Discern Expert. Performed By: #### 1 5178930, 0022731, 1498384, 6165464, 62049737, 6417106, 4920966, 3860176, 1381318, 51672702, 5783119 #### [facility] [address] [place] [address] Monocytes/Leukocytes Auto (Bld) [Pure # fraction] 0.6 E9/L Normal 0.2-1.0 [facility] Comment on above: Order Comment: Order Added by Discern Expert. Performed By: #### 1 0275672, 1295737, 2778053, 6105793, 97328152, 4057085, 4142460, 5700873, 2470708, 43958898, 9141457 #### [facility] [address] [place] [address] Neutrophils/100 WBC (Bld) 62.3 % Normal 36.0-75.0 [facility] Comment on above: Order Comment: Order Added by Discern Expert. Performed By: #### 1 2299866, 4140978, 1453639, 5428966, 36145216, 1072070, 7428115, 2611794, 4368717, 90707014, 0339015 #### [facility] [address] [place] [address] Neutrophils/Leukocyt es Auto (Bld) [Pure # fraction] 4.9 E9/L Normal 2.0-7.5 [facility] Comment on above: Order Comment: Order Added by Discern Expert. Performed By: #### 1 1793002, 3300564, 8219234, 5188599, 32553384, 4454279, 9694090, 9557787, 1734022, 85360165, 9074989 #### [facility] [address] [place] [address] BMPon 01-11-2019 Creatinine [Mass/Vol] 0.7 mg/dL Normal 0.5-1.3 [facility] Comment on above: Performed By: #### 1 0400530, 5670910, 8871812, 7850973, 01611191, 1359386, 1839180, 0919242, 6386059, 75707650, 1757485 #### [facility] [address] [place] [address] Urea nitrogen [Mass/Vol] 11 mg/dL Normal 5-21 [facility] Comment on above: Performed By: #### 1 7087883, 9408004, 7088975, 4613544, 06376178, 9882069, 7755969, 3478442, 3147455, 89170725, 8314107 #### [facility] [address] [place] [address] Urea nitrogen/Creatinine [Mass ratio] 16 No Units Normal 10-20 [facility] Comment on above: Performed By: #### 1 5416085, 8587539, 8243036, 9529498, 56060643, 9721223, 2277623, 6831266, 9796148, 39015085, 8627138 #### [facility] [address] [place] [address] Anion gap [Moles/Vol] 14 mmol/L Normal 6-16 [facility] Comment on above: Performed By: #### 1 3609340, 1770797, 6273916, 7629819, 36009482, 2216652, 8507521, 9182195, 6057899, 70501928, 9019519 #### [facility] [address] [place] [address] Calcium [Mass/Vol] 8.9 mg/dL Normal 8.9-11.1 [facility] Comment on above: Performed By: #### 1 5881792, 7732487, 0981704, 3150474, 02720496, 4827150, 3549044, 3411147, 0587968, 46811525, 4792283 #### [facility] [address] [place] [address] Chloride [Moles/Vol] 107 mmol/L Normal 101-111 [facility] Comment on above: Performed By: #### 1 8678872, 4977520, 8185553, 1492587, 88098462, 1872573, 5951467, 3987043, 1590998, 06116000, 3462363 #### [facility] [address] [place] [address] CO2 [Moles/Vol] 22 mmol/L Normal 21-31 [facility] Comment on above: Performed By: #### 1 5369497, 0449071, 9996957, 3247298, 75600969, 8575791, 6655828, 3020707, 2767608, 54178311, 5111908 #### [facility] [address] [place] [address] Glucose [Mass/Vol] 122 mg/dL Normal 55-199 [facility] Comment on above: Result Comment: If t his glucose result represents a fasting glucose, interpretation should refer to the following reference range: 55-99 mg/dL Performed By: #### 1 1541594, 2967307, 9508723, 7735740, 72104529, 3204336, 8257019, 0482474, 4210672, 20747050, 9265305 #### [facility] [address] [place] [address] Potassium [Moles/Vol] 3.8 mmol/L Normal 3.5-5.3 [facility] Comment on above: Performed By: #### 1 8827517, 4248424, 5607944, 7785169, 53615027, 7443160, 8905404, 6604465, 0360404, 78280534, 8248357 #### [facility] [address] [place] [address] Sodium [Moles/Vol] 139 mmol/L Normal 135-145 [facility] Comment on above: Performed By: #### 1 9351636, 9833555, 2928269, 5542253, 41654475, 2308472, 3719949, 2108819, 5927777, 27973305, 8543203 #### [facility] [address] [place] [address] CBC w/ Auto Diffon 9 Erythrocyte distribution width (RBC) [Ratio] 14.0 % Normal 10.9-14.2 [facility] Comment on above: Performed By: #### 1 4532777, 1222831, 8254915, 0024993, 38278679, 1700970, 3953044, 8891868, 4631528, 57774820, 7257969 #### [facility] [address] [place] [address] Hematocrit (Bld) [Volume fraction] 39.9 % Normal 34.0-46.0 [facility] Comment on above: Performed By: #### 1 2795702, 5416116, 1420814, 0857912, 80622537, 3093161, 4574879, 0765596, 1162378, 86228065, 9436362 #### [facility] [address] [place] [address] Hemoglobin (Bld) [Mass/Vol] 13.5 g/dL Normal 12.0-16.0 [facility] Comment on above: Performed By: #### 1 3210787, 6682684, 4046831, 0082309, 62732708, 5050631, 1011717, 9922004, 8390364, 50651905, 9998962 #### [facility] [address] [place] [address] MCH (RBC) [Entitic mass] 29.4 pg Normal 27.0-34.0 [facility] Comment on above: Performed By: #### 1 0198503, 8758939, 8426812, 0705636, 07497665, 5825335, 6717001, 5533885, 0232985, 07161972, 4164838 #### [facility] [address] [place] [address] MCHC (RBC) [Mass/Vol] 33.7 g/dL Normal 33.3-35.7 [facility] Comment on above: Performed By: #### 1 3883165, 4877831, 5054932, 3394765, 55918811, 1512257, 5753122, 1719091, 9504166, 20531421, 4514527 #### [facility] [address] [place] [address] MCV (RBC) [Entitic vol] 87.4 fL Normal 80.0-100.0 [facility] Comment on above: Performed By: #### 1 2212864, 3056162, 5062145, 3570324, 39880778, 3635278, 7282492, 5468895, 5377485, 88899840, 5204927 #### [facility] [address] [place] [address] Platelet mean volume (Bld) [Entitic vol] 8.5 fL Normal 6.4-10.8 [facility] Comment on above: Performed By: #### 1 2892745, 3567688, 2518998, 4344043, 91409545, 2669592, 1831101, 8721864, 0114881, 20737639, 4491355 #### [facility] [address] [place] [address] Platelets (Bld) [#/Vol] 244.0 E9/L Normal 150.0-500.0 [facility] Comment on above: Performed By: #### 1 3495419, 9200632, 7010738, 9974718, 63927930, 7429222, 7047392, 5951205, 3997435, 94588081, 5073503 #### [facility] [address] [place] [address] RBC (Bld) [#/Vol] 4.6 E12/L Normal 4.3-5.9 [facility] Comment on above: Performed By: #### 1 8674296, 7934875, 0794340, 6736226, 02132156, 9077091, 3646709, 7238167, 4772418, 79200704, 8785470 #### [facility] [address] [place] [address] WBC corrected for nucl RBC Auto (Bld) [#/Vol] 7.9 E9/L Normal 4.0-11.0 [facility] Comment on above: Performed By: #### 1 5871084, 6530810, 0679349, 9568541, 64631212, 2504442, 0248261, 9503905, 5212700, 14352842, 5591657 #### [facility] [address] [place] [address] D-Dimeron 01-11-2019 Fibrin D-dimer FEU (PPP) [Mass/Vol] 265 ng/mL Normal 215-500 [facility] Comment on above: Result Comment: [...] infections Liver cirrhosis Performed By: #### 1 1542827, 5620342, 4895044, 4821965, 97023019, 5690409, 5279097, 5451436, 0955966, 12888081, 8783287 #### [facility] [address] [place] [address] ED Clinical Summaryon 2018 ED Clinical Summary (Inserted Image. Melissa ble to display) [address] [address] ED Clinical Summary Person Information Name: JONES HALEY [place] Age: 38 Years : 1980 12:00 AM Sex: Female Language: Maldivian PCP: Charles Mitchell DO Marital Status: Single Phone: [phone] Visit Id: Visit Reason: Chest pain; CHEST [...] 01/11/2019 6:42 PM 01/11/2019 6:42 PM ADDRESS: [address] [place] [id number] [facility] DOC NOTES: MEDICAL INFORMATION: Prescriptions Given: PATIENT EDUCATION INFORMATION: Instructions: Smoking Cessation; Chest Pain (Nonspecific) Follow up: With: Address: When: [place] [phone] Business (1) Within 2 to 3 days Comments: Return to ED if symptoms worsen DIAGNOSIS: 1:Chest pain Normal [facility] ED Note-Physicianon 01-12-20 19 ED [...] prescription medications Follow-up With When Contact Information [facility] Within 2 to 3 days [address] [place] [address]- [facility] (1) Additional Instructions: Return to ED if [...] Lymph Auto: 28 % (01/11/19 16:46:00 EDT) [place] Auto: 7 % (01/11/19 16:46:00 EDT) Eos Auto: 1.9 % (01/11/19 16:46:00 EDT) Basophil Auto: 0.8 % (01/11/19 16:46:00 EDT) Neutro Absolute: 4.9 E9/L (01/11/19 16:46:00 EDT) Lymph Absolute: 2.2 E9/L (01/11/19 16:46:00 EDT) [place] Absolute: 0.6 E9/L (01/11/19 16:46:00 EDT) Eos [...] Results EC01/11/19: SINUS RHYTHM RATE 84, NORMAL IL AND QRS, NO ST ELEVATION OR DEPRSSION, NORMAL AXIS, NORMAL QTC NORMAL ECG Signed By: Orin Browne DO 01/11/2019 15:54:18 Normal [facility] Comment on above: Result Comment: [...] and skin patches. Some may be available [id number]-rhayysi and others require a prescription. ? Antidepressant [...] Document Reviewed: 08/18/2012 ExitCare? Patient Information ?2014 CleanMyCRM. This information is not intended to replace [...] flows through your heart. ? Transesophageal echocardiogram (MCIHELLE). ? Cardiac monitoring. This allows your health [...] Document Reviewed: 12/13/2008 ExitCare? Patient Information ?2015 Navmii, IXcellerate. This information is not intended to replace advice given to you by your health care provider. Make sure you discuss any questions you have with your health care provider. Normal [facility] ED Patient Summaryon 019 ED Patient Summary (Inserted Image. Melissa ble to display) [place] [id number] Patient Discharge Instructions Person Information Name: JONES HALEY Age: 38 Years Arrival Date: 01/11/2019 3:44 PM Discharge Diagnosis: 1:Chest pain Primary Care Physician: Charles Mitchell DO Provider Information Primary Provider: Orin Browne DO Advanced Director Epidemiology:None The exam and treatment you received in the Emergency Department were for an urgent problem and are not intended as complete care. It is important that you follow up with a doctor, nurse practitioner, or physician?s paralegal assistant for ongoing care. If your symptoms [...] Follow-up Instructions: With: Address: When: Charles Mitchell [address] [place] [address] [facility] (1) Within 2 to 3 days Comments: [...] opioids can be used to help relieve zrsdzmvy-bo-pzzgqa pain and are often prescribed following a [...] be struggling with addiction, tell your health healthcare interpreter and ask for guidance or call SAMHSA?S National Helpline at 0-308-719-LVZA. v Source: [place] Department of Health and Human Services/Center for Disease Control & Prevention [facility] Medications Given: Medication Dose Route No medications found. Medication Information: Medications to Continue with No Changes Other Medications metformin (metformin 500 mg ER Tab) 250 Milligram By Mouth 2 times a day. Comment: Pharmacy Information: Thank you for choosing [facility] Patient Education Materials: Smoking Cessation Quitting smoking [...] and skin patches. Some may be available [id number]-tmzseyb and others require a prescription. ? Antidepressant [...] Document Reviewed: 08/18/2012 ExitCare? Patient Information ?2015 CleanMyCRM. This information is not intended to replace [...] Document Reviewed: 12/13/2008 ExitCare? Patient Information ?2014 CleanMyCRM. This information is not intended to replace advice given to you by your health care provider. Make sure you discuss any questions you have with your health care provider. TERA Dorantes NICOLE B , have received the following patient education materials/instructions and have verbalized understanding: Patient Education Materials: Smoking Cessation; Chest Pain (Nonspecific) Follow-up Instructions: With: Address: When: [place] [phone] Business (1) Within 2 to 3 days Comments: Return to ED if symptoms worsen Prescriptions: Patient Signature Date Clinician/Nurse Signature Date 01/11/19 18:42:28 Normal [facility] Progress Note-Nurseon 2018 Progress Note-Nurse Pt explained dischar ge instructions and voiced understanding. Pt sts she will follow up with her PCP and denies any furthe questions at this time. Normal [facility] Troponin 0 Hr.on 01-11-2019 Troponin I.cardiac [Mass/Vol] ng/mL Normal <=0.03 [facility] Comment on above: Result Comment: New Troponin Assay 10/05/13 KRISHNA DE Cutoff value > or = 0.03 ng/mL in conjunction with clinical conditions of myocardial infarction. (www.escardio.org/guidelines) Performed By: #### 1 4885366, 4927181, 3125687, 8791234, 01166793, 2884523, 2395404, 0778982, 7880741, 19584111, 1023073 #### [facility] [address] [place] [address] eGFRon 01-11-2019 GFR/1.73 sq M predicted among blacks MDRD (S/P/Bld) [Vol rate/Area] mL/min/{1.73_m2} Normal >=59 [facility] Comment on above: Order Comment: Order added by Discern Expert. Result Comment: eGFR is race adjusted. AA=. Performed By: #### 1 4196611, 4373922, 2613303, 2981528, 86361429, 3823612, 7695200, 8189491, 7054539, 89466881, 1121178 #### [facility] [address] [place] [address] GFR/1.73 sq M predicted among non-blacks MDRD (S/P/Bld) [Vol rate/Area] mL/min/{1.73_m2} Normal >=59 [facility] Comment on above: Order Comment: Order added by Discern Expert. Result Comment: Hvac Manager anthony kidney disease could be indicated at eGFR's of less than 60 mL/min/1.73m2. Kidney failure is indicated at less than 15 mL/min/1.73m2. Performed By: #### 1 7690834, 2203507, 9376770, 8826997, 23944326, 7918931, 1170542, 4733243, 6345692, 03313890, 3130366 #### [facility] [address] [place] [address] SPINE, LUMBOSACRAL CMPLT(TOOTIE DING)on 12-05-2018 SPINE, LUMBOSACRAL CMPLT(BENDING) Patient Name: JONES HALEY STUDY: SPINE, LUMBOSACRAL; CMPLT(BENDING); 12/05/2018 1:47 pm INDICATION: LUMBAR XR. COMPARISON: None. ACCESSION NUMBER(S): [id number] ORDERING CLINICIAN: JUAN LUIS EARLY FINDINGS: No lumbar spine fracture. Scattered small endplate osteophytes. Vertebral body and disc space heights are are maintained. 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 No spondylolisthesis. No instability on flexion or extension. IMPRESSION: Degenerative changes of the lumbar spine without instability. Electronically signed by: EARNESTINE MANUEL MD [facility] XR chest 2V*on 09-17-2018 XR chest 2V* [facility] Main [place] [id number] XRay Report Signed Patient: Jones Haley MR#: [id number] : 1980 Acct:[id number] Age/Sex: 37 / F ADM Date: 09/17/18 Loc: XDUCLY Room: Type: [facility] Attending Dr: Bettina COREAS Ordering Provider: Bettina [...] Simin Nelson M.D.09/17/2018 2:04 PM Dictation Location: [facility] Transcribed By: KATHRIN 09/17/18 1404 Dictated By: Simin Nelson MD 09/17/18 1403 Signed By: 09/17/18 1404 [facility] Coding Summary.on 09-15-2018 Coding Summary. CODING DATE: 019 FINAL [facility] STATUS: Home (Routine DC) PAYOR: Medicaid EAPG [...] F17.210 Nicotine dependence, cigarettes, uncomplicated Z79.899 Other skilled nursing (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 However, the narrative phrase printed from the coding software may appear abbreviated, or result in slightly different terminology. Coded By: Luz Judd Date Saved: 09/15/2018 07:15 am Normal [facility] Auto Diffon 09-14-2018 Basophils/100 WBC (Bld) 0.6 % Normal 0.0-2.0 [facility] Comment on above: Order Comment: Order Added by Discern Expert. Performed By: #### 1 4586324, 8179926, 5600892, 3703342, 27154459, 0337438, 8568655, 6503602, 8631285, 96389150, 0573666 #### [facility] [address] [place] [address] Basophils/Leukocytes Auto (Bld) [Pure # fraction] 0.1 E9/L Normal 0.0-0.2 [facility] Comment on above: Order Comment: Order Added by Discern Expert. Performed By: #### 1 9491993, 7048715, 6143098, 0741577, 23526824, 8645350, 6543909, 9727401, 7392519, 84930179, 5758511 #### [facility] [address] [place] [address] Eosinophils/100 WBC (Bld) 2.2 % Normal 0.0-8.0 [facility] Comment on above: Order Comment: Order Added by Discern Expert. Performed By: #### 1 9636327, 5357483, 3585869, 2604610, 86240829, 2687344, 3892046, 8795210, 2191374, 28195869, 9387802 #### [facility] [address] [place] [address] Eosinophils/Leukocyt es Auto (Bld) [Pure # fraction] 0.2 E9/L Normal 0.0-0.5 [facility] Comment on above: Order Comment: Order Added by Discern Expert. Performed By: #### 1 4246034, 0221808, 0434090, 1940657, 83791676, 5872745, 8164959, 9133515, 0136034, 65506289, 3244855 #### [facility] [address] [place] [address] Lymphocytes/100 WBC (Bld) 30.6 % Normal 14.0-50.0 [facility] Comment on above: Order Comment: Order Added by Discern Expert. Performed By: #### 1 9575850, 6655309, 3678394, 7573024, 41759975, 7535728, 7354131, 5143786, 5784391, 63098257, 8855949 #### [facility] [address] [place] [address] Lymphocytes/Leukocyt es Auto (Bld) [Pure # fraction] 3.0 E9/L Normal 1.0-4.0 [facility] Comment on above: Order Comment: Order Added by Discern Expert. Performed By: #### 1 0074388, 5134712, 6214940, 0605032, 43625889, 8164834, 9689584, 3298049, 3336630, 13740899, 8739951 #### [facility] [address] [place] [place] [address] Monocytes/100 WBC (Bld) 7.2 % Normal 4.0-14.0 [facility] Comment on above: Order Comment: Order Added by Discern Expert. Performed By: #### 1 8561073, 6777788, 3391760, 1805708, 43264411, 8812770, 5359940, 6408323, 1491035, 38092900, 6589995 #### [facility] [address] [place] [address] Monocytes/Leukocytes Auto (Bld) [Pure # fraction] 0.7 E9/L Normal 0.2-1.0 [facility] Comment on above: Order Comment: Order Added by Discern Expert. Performed By: #### 1 6508451, 5387578, 4806756, 9347495, 42583618, 6617302, 2045691, 1968398, 9117072, 11050182, 4254581 #### [facility] [address] [place] [address] Neutrophils/100 WBC (Bld) 59.4 % Normal 36.0-75.0 [facility] Comment on above: Order Comment: Order Added by Discern Expert. Performed By: #### 1 6000003, 0917225, 5040538, 7117579, 61567747, 9433065, 7563266, 8921572, 1956972, 27664580, 2876355 #### [facility] [address] [place] [address] Neutrophils/Leukocyt es Auto (Bld) [Pure # fraction] 5.9 E9/L Normal 2.0-7.5 [facility] Comment on above: Order Comment: Order Added by Discern Expert. Performed By: #### 1 1287625, 2781724, 3219878, 2784219, 30245635, 9520686, 8037667, 3215567, 1475656, 08412560, 3289630 #### [facility] [address] [place] [address] BMPon 09-14-2018 Creatinine [Mass/Vol] 0.6 mg/dL Normal 0.5-1.3 [facility] Comment on above: Performed By: #### 1 9562664, 4404908, 1363255, 7952001, 86198418, 6893819, 6823894, 9265291, 5895302, 34956218, 7207943 #### [facility] [address] [place] [address] Urea nitrogen [Mass/Vol] 15 mg/dL Normal 5-21 [facility] Comment on above: Performed By: #### 1 9206368, 7588596, 0492660, 3950699, 21263550, 6139318, 2524418, 4596500, 4983686, 34258924, 1074515 #### [facility] [address] [place] [address] Urea nitrogen/Creatinine [Mass ratio] 25 No Units High 10-20 [facility] Comment on above: Performed By: #### 1 6823888, 6180394, 3919439, 3928288, 94015149, 3481329, 5824555, 1136823, 1639685, 12047519, 6473522 #### [facility] [address] [place] [address] Anion gap [Moles/Vol] 13 mmol/L Normal 6-16 [facility] Comment on above: Performed By: #### 1 2590414, 4952009, 1076909, 7947062, 43068644, 2690135, 8612481, 4929797, 5836205, 27745189, 7320635 #### [facility] [address] [place] [address] Calcium [Mass/Vol] 9.5 mg/dL Normal 8.9-11.1 [facility] Comment on above: Performed By: #### 1 4356157, 9698816, 7035567, 2175795, 06793725, 8615073, 3904884, 7490227, 1569406, 92601130, 4764861 #### [facility] [address] [place] [address] Chloride [Moles/Vol] 103 mmol/L Normal 101-111 [facility] Comment on above: Performed By: #### 1 9801907, 6770018, 8803381, 2878682, 24056689, 1471472, 4428062, 7028486, 2727397, 52015615, 7551198 #### [facility] [address] [place] [address] CO2 [Moles/Vol] 24 mmol/L Normal 21-31 [facility] Comment on above: Performed By: #### 1 3508310, 5356381, 4630360, 6670274, 15281823, 6772680, 7356160, 2476965, 0340923, 20373972, 8986500 #### [facility] [address] [place] [address] Glucose [Mass/Vol] 102 mg/dL Normal 55-199 [facility] Comment on above: Result Comment: If t his glucose result represents a fasting glucose, interpretation should refer to the following reference range: 55-99 mg/dL Performed By: #### 1 5487188, 2822394, 3377267, 7130953, 28165075, 9741169, 2878459, 3190849, 6590031, 58382232, 6517584 #### [facility] [address] [place] [address] Potassium [Moles/Vol] 3.6 mmol/L Normal 3.5-5.3 [facility] Comment on above: Performed By: #### 1 1085977, 0390781, 0522823, 2669965, 29176861, 3319558, 0348015, 5303534, 0917120, 24963244, 5678883 #### [facility] [address] [place] [address] Sodium [Moles/Vol] 136 mmol/L Normal 135-145 [facility] Comment on above: Performed By: #### 1 1591993, 3251139, 9385054, 3137079, 40496567, 1065785, 2133827, 1280109, 6356524, 45881896, 9214581 #### [facility] [address] [place] [address] CBC w/ Auto Diffon 9 Erythrocyte distribution width (RBC) [Ratio] 14.2 % Normal 10.9-14.2 [facility] Comment on above: Performed By: #### 1 9303329, 4187062, 7831618, 9684891, 66580236, 6696670, 2075818, 1075108, 6054183, 00884851, 4125138 #### [facility] [address] [place] [address] Hematocrit (Bld) [Volume fraction] 39.4 % Normal 34.0-46.0 [facility] Comment on above: Performed By: #### 1 1870563, 1802070, 3270757, 5690804, 33770384, 4078855, 1603510, 7421289, 0113351, 79248248, 3496755 #### [facility] [address] [place] [address] Hemoglobin (Bld) [Mass/Vol] 13.3 g/dL Normal 12.0-16.0 [facility] Comment on above: Performed By: #### 1 9763122, 1964912, 7715062, 1842761, 43912085, 3189593, 8314090, 9411733, 7801903, 48621489, 8513515 #### [facility] [address] [place] [address] MCH (RBC) [Entitic mass] 29.2 pg Normal 27.0-34.0 [facility] Comment on above: Performed By: #### 1 4160901, 3930568, 0115141, 8135929, 70661721, 2043576, 9609283, 7470321, 7541983, 99560654, 4104604 #### [facility] [address] [place] [address] MCHC (RBC) [Mass/Vol] 33.8 g/dL Normal 33.3-35.7 [facility] Comment on above: Performed By: #### 1 7332291, 9938446, 7645830, 0590808, 13246406, 5479225, 2717408, 7509541, 1005650, 73137700, 1827439 #### [facility] [address] [place] [address] MCV (RBC) [Entitic vol] 86.6 fL Normal 80.0-100.0 [facility] Comment on above: Performed By: #### 1 7862441, 5777712, 3435643, 7826940, 98009515, 4352539, 2783975, 7662397, 1338666, 53564517, 4121241 #### [facility] [address] [place] [address] Platelet mean volume (Bld) [Entitic vol] 8.8 fL Normal 6.4-10.8 [facility] Comment on above: Performed By: #### 1 1555302, 5057232, 6271497, 0644554, 11298170, 3466139, 2755684, 0735120, 2838350, 52291347, 0601393 #### [facility] [address] [place] [address] Platelets (Bld) [#/Vol] 307.0 E9/L Normal 150.0-500.0 [facility] Comment on above: Performed By: #### 1 2746007, 1877766, 3531499, 1318554, 23343471, 8358151, 9307319, 4256646, 1041275, 14740254, 2421195 #### [facility] [address] [place] [address] RBC (Bld) [#/Vol] 4.6 E12/L Normal 4.3-5.9 [facility] Comment on above: Performed By: #### 1 1923630, 4494557, 3375836, 2167851, 39655405, 7317066, 4067605, 7851320, 7116342, 97812041, 7810694 #### [facility] [address] [place] [address] WBC corrected for nucl RBC Auto (Bld) [#/Vol] 9.9 E9/L Normal 4.0-11.0 [facility] Comment on above: Performed By: #### 1 2689490, 9110588, 7782709, 6352494, 69320387, 6126431, 9229536, 9414555, 4494341, 45809878, 8682263 #### [facility] [address] [place] [address] CKon 09-14-2018 CK [Catalytic activity/Vol] 53 Int._Unit/L Normal 14-261 [facility] Comment on above: Performed By: #### 1 8374228, 8915002, 2319083, 6344900, 84706156, 4956259, 9327746, 8249551, 9090144, 01552461, 3799606 #### [facility] [address] [place] [address] ED Clinical Summaryon 2018 ED Clinical Summary (Inserted Image. Melissa ble to display) [address] [address] ED Clinical Summary Person Information Name: JONES HALEY/NewTommy Age: 37 Years : 1980 12:00 AM Sex: Female Language: Maldivian PCP: Charles Mitchell DO Marital Status: Single Phone: [phone] Visit Id: Visit Reason: Anxiety; Paraesthesia; NUMBNESS [...] 09/14/2018 12:17 AM 09/14/2018 12:17 AM ADDRESS: [address] [place] [id number] PHYS DOC NOTES: MEDICAL INFORMATION: Prescriptions Given: Prescription Display gabapentin (gabapentin 100 mg Cap) 100 mg = 1 cap(s), Oral, Daily, X 7 day(s), # 7 cap(s), Refills(s) 0, Pharmacy: [facility] gabapentin (gabapentin 100 mg Cap) 100 mg = 1 cap(s), Oral, Daily, X 7 day(s), # 7 cap(s), Refills(s) 0, Pharmacy: [facility][id number] magnesium oxide (magnesium oxide 400 mg Tab) 400 mg = 1 tab(s), Oral, Daily, X 7 day(s), # 7 tab(s), Refills(s) 0, Pharmacy: [facility] magnesium oxide (magnesium oxide 400 mg Tab) 400 mg = 1 tab(s), Oral, Daily, X 7 day(s), # 7 tab(s), Refills(s) 0, Pharmacy: [facility]/pharmacy #[id number] Home Meds Display metformin (metformin 500 mg ER Tab) 250 mg, Oral, BID, Refills(s) 0 PATIENT EDUCATION INFORMATION: Instructions: Paresthesia, [id number]; Restless Legs Syndrome Follow up: With: Address: When: Sayda Kelley [address] [place] [address] Business (1) Within 1 to 2 days Comments: neurologist you may also follow up with him With: Address: When: [address] [address] Business (1) Within 1 to 2 days Comments: Return to ED if symptoms worsen DIAGNOSIS: 1:Restless leg syndrome Normal [facility] ED Note-Nursingon 09-14-2018 ED Note-Nursing Pt up to RR, gait steady. Normal [facility] ED Note-Nursing Aware of need for ur ine specimen, denies urge at present, states will notify when able to produce sample, will monitor. Normal [facility] ED Note-Physicianon 09-15-19 19 ED [...] day(s), # 7 cap(s), Refills(s) 0, Pharmacy: [facility]/pharmacy #[id number] magnesium oxide, 400 mg = 1 tab(s), Oral, Daily, X 7 day(s), # 7 tab(s), Refills(s) 0, Pharmacy: [facility]/pharmacy #[id number] Sodium Chloride 0.9% intravenous solution [...] Sayda Kelley Within 1 to [address] [address]- Business (1) Additional Instructions: neurologist you may also follow up with him Charles Mitchell Within 1 to [address] [place] [address]- Business (1) Additional Instructions: Return to ED if symptoms worsen Patient Education Paresthesia, Lwhs-tk-Awyy Restless Legs Syndrome Problem List/Past Medical History [...] Lymph Auto: 30.6 % (09/13/18 23:03:00 EDT) [place] Auto: 7.2 % (09/13/18 23:03:00 EDT) Eos Auto: 2.2 % (09/13/18 23:03:00 EDT) Basophil Auto: 0.6 % (09/13/18 23:03:00 EDT) Neutro Absolute: 5.9 E9/L (09/13/18 23:03:00 EDT) Lymph Absolute: 3 E9/L (09/13/18 23:03:00 EDT) [place] Absolute: 0.7 E9/L (09/13/18 23:03:00 EDT) Eos [...] Diagnostic Results No qualifying data available. Normal [facility] Comment on above: Result Comment: [...] Document Reviewed: 01/29/2012 ExitCare? Patient Information ?2015 [employer]. This information is not intended to replace [...] ? Drawing. ? Crawling. ? Worming. ? Kin[place]y. ? Tingling. ? Pins and needles. ? [...] Document Reviewed: 08/06/2011 ExitCare? Patient Information ?2015 [employer]. This information is not intended to replace advice given to you by your health care provider. Make sure you discuss any questions you have with your health care provider. Normal [facility] ED Patient Summaryon 019 ED Patient Summary (Inserted Image. Melissa ble to display) [address] [address] Patient Discharge Instructions Person Information Name: JONES HALEY Age: 37 Years Arrival Date: 09/13/2018 10:16 PM Discharge Diagnosis: 1:Restless leg syndrome Primary Care Physician: Charles Mitchell DO Provider Information Primary Provider: Génesis Lozoya DO Advanced Director Epidemiology:None The exam and treatment you received in the Emergency Department were for an urgent problem and are not intended as complete care. It is important that you follow up with a doctor, nurse practitioner, or physician?s paralegal assistant for ongoing care. If your symptoms [...] Follow-up Instructions: With: Address: When: Sayda Kelley [facility], [address] [place] [address] Business (1) Within 1 to 2 days Comments: neurologist you may also follow up with him With: Address: When: Charles Mitchell [address] [place] [address] Business (1) Within 1 to 2 days Comments: Return to ED if symptoms worsen In the event that this physician does not participate in your insurance network, please consult with your insurance company to find a nearby participating provider. Patient Education Materials: Paresthesia, Bbma-ae-Nyyp; Restless Legs Syndrome A MESSAGE TO ALL PATIENTS REGARDING OPIOIDS PRESCRIPTION OPIOIDS: WHAT YOU NEED TO KNOW Prescription opioids can be used to help relieve diuvshvs-rn-emnapd pain and are often prescribed following a [...] be struggling with addiction, tell your health healthcare interpreter and ask for guidance or call [facility] National Helpline at 5-159-424-IPGK. Source: [place] Department of Health and Human Services/Center for Disease Control & Prevention [facility] Medications Given: Medication Dose Route Sodium Chloride 0.9% intravenous solution 1000.00 mL Initial Volume 1000.00 mL/hr IV Piggyback Left Mid Forearm Medication Information: New Medications [id number], [address] [place], [place] [id number], [phone] gabapentin (gabapentin 100 mg Cap) 1 Capsules By Mouth every day for 7 Days. Refills: 0. magnesium oxide (magnesium oxide 400 mg Tab) 1 Tabs By Mouth every day for 7 Days. Refills: 0. [facility], [address] [facility] [address] [place], [place] [id number], [phone] gabapentin (gabapentin 100 mg Cap) 1 Capsules By Mouth every day for 7 Days. Refills: 0. magnesium oxide (magnesium oxide 400 mg Tab) 1 Tabs By Mouth every day for 7 Days. Refills: 0. Medications to Continue with No Changes Other Medications metformin (metformin 500 mg ER Tab) 250 Milligram By Mouth 2 times a day. Comment: Pharmacy Information: Thank you for choosing [facility] Patient Education Materials: Paresthesia Paresthesia is a [...] Document Reviewed: 01/29/2012 ExitCare? Patient Information ?2015 [employer] [facility]. This information is not intended to replace [...] ? Drawing. ? Crawling. ? Worming. ? [place]y. ? Tingling. ? Pins and needles. ? [...] Document Reviewed: 08/06/2011 ExitCare? Patient Information ?2014 [employer] [facility]. This information is not intended to replace advice given to you by your health care provider. Make sure you discuss any questions you have with your health care provider. TERA Dorantes NICOLE B , have received the following patient education materials/instructions and have verbalized understanding: Patient Education Materials: Paresthesia, Pgwf-tb-[id number]; Restless Legs Syndrome Follow-up Instructions: With: Address: When: Sayda Kelley [facility], [address] [place] [address] Business (1) Within 1 to 2 days Comments: neurologist you may also follow up with him With: Address: When: [address] [address] Business (1) Within 1 to 2 days Comments: Return to ED if symptoms worsen Prescriptions: [gabapentin (gabapentin 100 mg Cap)] [gabapentin (gabapentin 100 mg Cap)] [magnesium oxide (magnesium oxide 400 mg Tab)] [magnesium oxide (magnesium oxide 400 mg Tab)] Patient Signature Date Clinician/Nurse Signature Date 09/14/18 00:21:38 Normal [facility] Hep Func Panelon 09-14-2018 Bilirubin.direct [Mass/Vol] UTC Abnormal 0.1-0.9 [facility] Comment on above: Result Comment: Resu lt verified by Discern Rule. Performed result [facility] (Unable to Calculate) was sent as an Alpha code due the inability to calculate a valid numeric value. Performed By: #### 1 7015409, 5319339, 5235667, 3595015, 91417112, 5828958, 7777370, 0456332, 8082764, 66599352, 4765900 #### [facility] [address] [place] [address] Albumin [Mass/Vol] 1.1 g/dL Normal 1.1-2.2 [facility] Comment on above: Performed By: #### 1 2184082, 5331072, 8830010, 8424053, 73140212, 9114402, 8961788, 8894518, 8210000, 63133835, 2775501 #### [facility] [address] [place] [address] Albumin [Mass/Vol] 4.1 g/dL Normal 3.3-5.0 [facility] Comment on above: Performed By: #### 1 7318213, 4343282, 5364008, 5054934, 32948007, 0516920, 2872602, 3387453, 2482405, 49691394, 0192735 #### [facility] [address] [place] [address] ALP [Catalytic activity/Vol] 69 Int._Unit/L Normal 21-98 [facility] Comment on above: Performed By: #### 1 9583203, 5880134, 3111041, 3933179, 64175533, 5284578, 9640355, 4388148, 7603464, 90945654, 7394670 #### [facility] [address] [place] [address] ALT No additional P-5'-P [Catalytic activity/Vol] 27 Int._Unit/L Normal 6-46 [facility] Comment on above: Performed By: #### 1 4513226, 4482535, 2121519, 3540666, 20324971, 2129787, 6759369, 4829596, 4365238, 51949536, 1919842 #### [facility] [address] [place] [address] AST [Catalytic activity/Vol] 16 Int._Unit/L Normal 5-43 [facility] Comment on above: Performed By: #### 1 1015012, 4627317, 3765426, 5278524, 75727087, 8558733, 5125855, 0279471, 8613496, 30950098, 2251618 #### [facility] [address] [place] [address] Bilirubin [Mass/Vol] 0.5 mg/dL Normal 0.0-1.1 [facility] Comment on above: Performed By: #### 1 4990872, 6498506, 8767723, 2591831, 45022807, 6803342, 2953481, 3064357, 2569891, 46803285, 3550204 #### [facility] [address] [place] [address] Bilirubin.direct [Mass/Vol] mg/dL Normal 0.1-0.4 [facility] Comment on above: Performed By: #### 1 7119014, 0996142, 9876960, 7492406, 13697643, 5325954, 2320842, 5907684, 6823656, 46209887, 3133272 #### [facility] [address] [place] [address] Globulin (S) [Mass/Vol] 3.7 g/dL Normal 1.4-4.0 [facility] Comment on above: Performed By: #### 1 2335670, 9547787, 8622097, 3773038, 35730905, 2125087, 5594150, 7497389, 8778125, 53812214, 8224308 #### [facility] [address] [place] [address] Protein [Mass/Vol] 7.8 g/dL Normal 6.0-7.8 [facility] Comment on above: Performed By: #### 1 1652660, 0033756, 9739149, 4996345, 82208384, 8398027, 5631197, 8335878, 5735284, 01758329, 0718105 #### [facility] [address] [place] [address] Magnesiumon 09-14-2018 Magnesium [Mass/Vol] 1.9 mg/dL Normal 1.3-2.4 [facility] Comment on above: Performed By: #### 1 6006250, 4043212, 8573357, 4689858, 00032718, 4850633, 4649990, 0099900, 6714489, 50703712, 7606629 #### [facility] [address] [place] [address] Myoglobinon 09-14-2018 Myoglobin [Mass/Vol] 9 ng/mL Normal <=69 [facility] Comment on above: Performed By: #### 1 9113061, 7025787, 9202773, 1890511, 39230421, 3550626, 9744259, 9829838, 5477976, 12388607, 5949279 #### [facility] [address] [place] [address] PT & PTTon 09-14-2018 aPTT Coag (PPP) [Time] 34.5 second(s) Normal 25.1-36.5 [facility] Comment on above: Result Comment: Hepa rin therapeutic range (represented by Anti-Factor Xa activity of 0.2 - 0.4 U/mL) corresponds to PTT of 56.6 - 109.0 sec. Performed By: #### 1 9278869, 2350699, 0674141, 9448340, 68291274, 3958115, 7982861, 3714758, 5583654, 98322809, 3553501 #### [facility] [address] [place] [address] INR Coag (PPP) [Relative time] 1.0 {INR} [facility] Comment on above: Result Comment: INR results are specifically intended to assess patients stabilized on long-term Anticoagulation therapy suggested INR?s ?Less Intensive Anticoagulation? 2.0 ? 3.0 Conventional Range 3.0 ? 4.5 Performed By: #### 1 5627613, 4661205, 1741333, 7293959, 22198665, 9355410, 6874490, 7047741, 4918608, 55508214, 5114083 #### [facility] [address] [place] [address] PT Coag (PPP) [Time] 11.2 second(s) Normal 10.2-12.9 [facility] Comment on above: Performed By: #### 1 7185286, 9167255, 2259767, 7977249, 75873149, 5344280, 6568098, 3756589, 0653398, 30112874, 2930012 #### [facility] [address] [place] [address] Phosphoruson 09-14-2018 Phosphate [Mass/Vol] 3.8 mg/dL Normal 1.9-4.[address] [facility] Comment on above: Performed By: #### 1 7005499, 0484049, 2129813, 7387251, 47549045, 7952609, 2995501, 5738747, 8591929, 55655509, 7578782 #### [facility] [address] [place] [address] Troponin 0 Hr.on 09-14-2018 Troponin I.cardiac [Mass/Vol] ng/mL Normal <=0.03 [facility] Comment on above: Result Comment: New Troponin Assay 10/05/13 KRISHNA DE Cutoff value > or = 0.03 ng/mL in conjunction with clinical conditions of myocardial infarction. ([email or web address]) Performed By: #### 1 7280725, 2713786, 8941250, 5915207, 36934145, 1838903, 9692507, 0333335, 4504660, 65846296, 9065368 #### [facility] [address] [place] [address] UA With Cult Reflexon 2018 Bacteria LM Ql (Urine sed) TRACE Normal Trace [facility] Comment on above: Performed By: #### 1 5333216, 9527820, 7648579, 2114521, 32654259, 4285006, 5641310, 3569866, 8313309, 81446656, 8267981 #### [facility] [address] [place] [address] Bilirubin Ql (U) Negative Normal Negative [facility] Comment on above: Performed By: #### 1 4516576, 7169752, 4964707, 1938123, 51047866, 5757750, 5742247, 9303445, 9300095, 13334825, 7992585 #### [facility] [address] [place] [address] Clarity (U) CLEAR Normal Clear [facility] Comment on above: Performed By: #### 1 6907908, 1557452, 8240983, 7536112, 00015348, 4099902, 0304977, 1353948, 0938717, 39182185, 1207857 #### [facility] [address] [place] [address] Color (U) YELLOW Normal Yellow [facility] Comment on above: Performed By: #### 1 4921016, 8880331, 0387758, 0446197, 83453287, 4265644, 1927663, 4599922, 7843102, 16486530, 7407046 #### [facility] [address] [place] [address] Epithelial cells.squamous LM.HPF (Urine sed) [#/Area] 0-2 Normal 0-2 [facility] Comment on above: Performed By: #### 1 3514502, 1299957, 8121985, 0832766, 54369474, 1303254, 8317184, 3788866, 6817431, 03594797, 5689941 #### [facility] [address] [place] [address] Glucose Test strip (U) [Mass/Vol] Negative Normal Negative [facility] Comment on above: Performed By: #### 1 2499148, 0937944, 5946843, 0375716, 45802892, 0416151, 2130424, 6189399, 2997946, 83847679, 7734833 #### [facility] [address] [place] [address] Hemoglobin Ql (U) Negative Normal Negative [facility] Comment on above: Performed By: #### 1 4137462, 1102587, 1409087, 9712483, 50433342, 3220817, 4191905, 8595116, 7649970, 76827819, 1228294 #### [facility] [address] [place] [address] Ketones (U) [Mass/Vol] Negative Normal Negative [facility] Comment on above: Performed By: #### 1 3529399, 2475108, 1547183, 2231601, 44460500, 5801976, 6660367, 3054899, 8503515, 06334570, 4651239 #### [facility] [facility] [address] [place], [place] [id number] [place].plasma/Lithi um.RBC (Bld) [Mass ratio] 0-3 Normal 0-3 [facility] Comment on above: Performed By: #### 1 [id number], [id number], 1564545, 1644881, 99441947, 7164960, 9491681, 5068561, 7442061, [id number], [id number] #### [facility] [address] [place] [address] Mucus Ql (Urine sed) TRACE Normal [facility] Comment on above: Performed By: #### 1 [id number], 7343436, 4889211, 6324780, 19171785, 8197905, 3747913, 8721315, 4207165, 88527485, [id number] #### [facility] [address] [place] [address] Nitrite Ql (U) Negative Normal Negative [facility] Comment on above: Performed By: #### 1 [id number], 8928270, 2692475, 0768612, 47140348, 1118131, 2422014, 8409445, 5934941, 82023873, 9314765 #### [facility] [address] [place] [address] pH (U) 6.0 [pH] 5.0-9.0 [facility] Comment on above: Performed By: #### 1 [id number], 9507958, 5392226, 1776608, 95432758, 4477144, 0548264, 8258772, 9786178, 08483332, 8160021 #### [facility] [address] [place] [address] Protein (U) [Mass/Vol] Negative Normal Negative [facility] Comment on above: Performed By: #### 1 [id number], 3956243, 3535808, 7611547, 22814577, 2221027, 9126740, 9679324, 3530181, 57087831, 9870889 #### [facility] [address] [place] [address] Specific gravity (U) [Rel density] 1.010 1.005-1.030 [facility] Comment on above: Performed By: #### 1 [id number], 5759430, 4714136, 1646839, 45306613, 3140509, 5502704, 7680966, 8944780, 87857761, 9418367 #### [facility] [address] [place] [address] UA Spec Desc Clean Catch Normal [facility] Comment on above: Performed By: #### 1 [id number], 8997280, 4008146, 1410945, 45402190, 1538937, 5924085, 3818553, 7850245, 10480419, 0189741 #### [facility] [address] [place] [address] Urobilinogen Qn (U) 0.2 {Carmella'U}/dL Normal 0.0-1.0 [facility] Comment on above: Performed By: #### 1 [id number], 1306853, 4108589, 6229026, 26933835, 3605393, 5680655, 2785628, 7307847, 92305046, 0224314 #### [facility] [address] [place] [address] WBC Auto Ql (U) Negative Normal Negative [facility] Comment on above: Performed By: #### 1 [id number], 0521256, 9391815, 6681169, 08407035, 1549353, 2981029, 3856854, 4626686, 72733033, 1678133 #### [facility] [address] [place] [address] WBC LM.HPF (Urine sed) [#/Area] 0-5 Normal 0-5 [facility] Comment on above: Performed By: #### 1 [id number], 4434986, 5486132, 0129175, 58002001, 7006351, 4014045, 5539862, 0008016, 72306372, 1335819 #### [facility] [address] [place] [address] XR Chest Single Viewon 09-14 XR Chest [...] M.D. Transcribed by: minoo Technologist: AP Normal [facility] XR FOOT LEFT (MIN 3 VIEWS)on 09-14-2018 XR FOOT LEFT (MIN 3 VIEWS) Radiology exam is complete. No Radiologist dictation. Please follow up with ordering provider. Final result Normal [facility] XR FOOT RIGHT (MIN 3 VIEWS)o n 09-14-2018 XR FOOT RIGHT (MIN 3 VIEWS) Radiology exam is complete. No Radiologist dictation. Please follow up with ordering provider. Final result Normal [facility] eGFRon 09-14-2018 GFR/1.73 sq M predicted among blacks MDRD (S/P/Bld) [Vol rate/Area] mL/min/{1.73_m2} Normal >=59 [facility] Comment on above: Order Comment: Order added by Discern Expert. Result Comment: eGFR is race adjusted. AA=. Performed By: #### 1 [id number], 6881666, 1027846, 3601427, 09584972, 0916550, 7159774, 6178187, 6505268, 15755899, 6995836 #### [facility] [address] [place] [address] GFR/1.73 sq M predicted among non-blacks MDRD (S/P/Bld) [Vol rate/Area] mL/min/{1.73_m2} Normal >=59 [facility] Comment on above: Order Comment: Order added by Discern Expert. Result Comment: Hvac Manager anthony kidney disease could be indicated at eGFR's of less than 60 mL/min/1.73m2. Kidney failure is indicated at less than 15 mL/min/1.73m2. Performed By: #### 1 [id number], 8098154, 5560100, 7635004, 14330135, 7675164, 1311043, 3775830, 8589514, 16337501, 1010564 #### [facility] [address] [place] [address] Vital Signs Date Time Vital Sign Value Performing Clinician Facility 06-09-2023 08:45-0500 Body height 170.2 cm Michelle TABOR Work Phone: [facility] 06-09-2023 08:45-0500 Body mass index (BMI) [Ratio] 44.48 kg/m2 Michelle Britton APRN-OLD COIN DEALER Work Phone: [facility] 06-09-2023 08:45-0500 Body weight 128.82 kg Michelle Britton APRN-[employer] DEALER Work Phone: [facility] 06-09-2023 08:45-0500 Diastolic blood pressure 82 mm[Hg] Michelle Britton APRN-OLD CO[employer] DEALER Work Phone: [facility] 06-09-2023 08:45-0500 Heart rate 80 /min Michelle Britton HIGH SCHOOL TUTOR-[employer]ER Work Phone: [facility] 06-09-2023 08:45-0500 Systolic blood pressure 146 mm[Hg] Michelle Britton HIGH SCHOOL TUTOR-[employer]ER Work Phone: [facility] 05-26-2023 17:17-0500 Body weight 123.83 kg Christie Phan MD Work Phone: [facility] 04-26-2023 14:42-0500 Body weight 125.19 kg Christie Phan MD Work Phone: [facility] 03-19-2023 11:16-0400 Body temperature 97.7 [degF] Ma Sand Work Phone: [facility] 03-19-2023 11:16-0400 Diastolic blood pressure 54 mm[Hg] Ma Sand Work Phone: [facility] 03-19-2023 11:16-0400 Heart rate 75 /min Ma Sand Work Phone: [facility] 03-19-2023 11:16-0400 Respiratory rate 16 /min Ma Sand Work Phone: [facility] 03-19-2023 11:16-0400 SaO2% (BldA) [Mass fraction] 96 % Ma Sand Work Phone: [facility] 03-19-2023 11:16-0400 Systolic blood pressure 111 mm[Hg] Ma Sand Work Phone: [facility] 02-19-2023 10:56-0400 Body height 170.2 cm Jose Najera MD Work Phone: [facility] 02-19-2023 10:56-0400 Body temperature 97.39 [degF] Jose Najera MD Work Phone: [facility] 02-19-2023 10:56-0400 Body weight 120.75 kg Jose Najera MD Work Phone: [facility] 02-19-2023 10:56-0400 Diastolic blood pressure 69 mm[Hg] Jose Najera MD Work Phone: [facility] 02-19-2023 10:56-0400 Heart rate 110 /min Jose Najera MD Work Phone: [facility] 02-19-2023 10:56-0400 Respiratory rate 16 /min Jose Najera MD Work Phone: [facility] 02-19-2023 10:56-0400 SaO2% (BldA) [Mass fraction] 96 % Jose Najera MD Work Phone: [facility] 02-19-2023 10:56-0400 Systolic blood pressure 132 mm[Hg] Jose Najera MD Work Phone: [facility] 01-22-2023 12:09-0400 Diastolic blood pressure 76 mm[Hg] Ma Sand Work Phone: [facility] 01-22-2023 12:09-0400 Systolic blood pressure 107 mm[Hg] Ma Sand Work Phone: [facility] 01-22-2023 12:08-0400 Body temperature 97.59 [degF] Ma Sand Work Phone: [facility] 01-22-2023 12:08-0400 Heart rate 102 /min Ma Sand Work Phone: [facility] 01-22-2023 12:08-0400 Respiratory rate 16 /min Ma Sand Work Phone: [facility] 01-22-2023 12:08-0400 SaO2% (BldA) [Mass fraction] 97 % Ma Sand Work Phone: [facility] 11-19-2022 11:00-0400 Body temperature 97.2 [degF] Ma Sand Work Phone: [facility] 11-19-2022 11:00-0400 Diastolic blood pressure 54 mm[Hg] Ma Sand Work Phone: [facility] 11-19-2022 11:00-0400 Heart rate 98 /min Ma Sand Work Phone: [facility] 11-19-2022 11:00-0400 Respiratory rate 16 /min Ma Sand Work Phone: [facility] 11-19-2022 11:00-0400 SaO2% (BldA) [Mass fraction] 98 % Ma Sand Work Phone: [facility] 11-19-2022 11:00-0400 Systolic blood pressure 126 mm[Hg] Ma Sand Work Phone: [facility] 10-22-2022 11:51-0400 Body height 170.2 cm Ma Sand Work Phone: [facility] 10-22-2022 11:51-0400 Body weight 120.66 kg Ma Sand Work Phone: [facility] 10-22-2022 11:51-0400 Respiratory rate 16 /min Ma Sand Work Phone: [facility] 10-22-2022 10:50-0400 Body height 170.2 cm Jose Najera MD Work Phone: [facility] 10-22-2022 10:50-0400 Body temperature 97 [degF] Jose Najera MD Work Phone: [facility] 10-22-2022 10:50-0400 Body weight 120.75 kg Jose Najera MD Work Phone: [facility] 10-22-2022 10:50-0400 Diastolic blood pressure 55 mm[Hg] Jose Najera MD Work Phone: [facility] 10-22-2022 10:50-0400 Heart rate 78 /min Jose Najera MD Work Phone: [facility] 10-22-2022 10:50-0400 Respiratory rate 16 /min Jose Najera MD Work Phone: [facility] 10-22-2022 10:50-0400 SaO2% (BldA) [Mass fraction] 98 % Jose Najera MD Work Phone: [facility] 10-22-2022 10:50-0400 Systolic blood pressure 132 mm[Hg] Jose Najera MD Work Phone: [facility] 09-24-2022 10:22-0400 Body height 170.2 cm Ma Sand Work Phone: [facility] 09-24-2022 10:22-0400 Body temperature 97 [degF] Ma Sand Work Phone: [facility] 09-24-2022 10:22-0400 Body weight 120.2 kg Ma Sand Work Phone: [facility] 09-24-2022 10:22-0400 Diastolic blood pressure 81 mm[Hg] Ma Sand Work Phone: [facility] 09-24-2022 10:22-0400 Heart rate 77 /min Ma Sand Work Phone: [facility] 09-24-2022 10:22-0400 Respiratory rate 16 /min Ma Sand Work Phone: [facility] 09-24-2022 10:22-0400 SaO2% (BldA) [Mass fraction] 97 % Ma Sand Work Phone: [facility] 09-24-2022 10:22-0400 Systolic blood pressure 116 mm[Hg] Ma Sand Work Phone: [facility] 09-07-2022 14:03-0400 Body weight 120.2 kg Christie Phan MD Work Phone: [facility] 08-27-2022 09:45-0400 Body height 170.2 cm Wilmer Driver APRN.[employer] DEALER Work Phone: [facility] 08-27-2022 09:45-0400 Body temperature 97.7 [degF] Wilmer Driver APRN.[employer] DEALER Work Phone: [facility] 08-27-2022 09:45-0400 Body weight 118.66 kg Wilmre Driver HIGH SCHOOL TUTOR.[employer] DEALER Work Phone: [facility] 08-27-2022 09:45-0400 Diastolic blood pressure 55 mm[Hg] Wilmer Driver HIGH SCHOOL TUTOR.[employer] DEALER Work Phone: [facility] 08-27-2022 09:45-0400 Heart rate 63 /min Wilmer Driver HIGH SCHOOL TUTOR.[employer] DEALER Work Phone: [facility] 08-27-2022 09:45-0400 Respiratory rate 16 /min Wilmer Driver HIGH SCHOOL TUTOR.[employer] DEALER Work Phone: [facility] 08-27-2022 09:45-0400 SaO2% (BldA) [Mass fraction] 96 % Wilmer Driver HIGH SCHOOL TUTOR.[employer] DEALER Work Phone: [facility] 08-27-2022 09:45-0400 Systolic blood pressure 117 mm[Hg] Wilmer Driver HIGH SCHOOL TUTOR.[employer] DEALER Work Phone: [facility] 05-20-2022 13:28-0500 Body height 170.2 cm Jose Najera MD Work Phone: [facility] 05-20-2022 13:28-0500 Body temperature 97.7 [degF] Jose Najera MD Work Phone: [facility] 05-20-2022 13:28-0500 Diastolic blood pressure 70 mm[Hg] Jose Najera MD Work Phone: [facility] 05-20-2022 13:28-0500 Heart rate 93 /min Jose Najera MD Work Phone: [facility] 05-20-2022 13:28-0500 Respiratory rate 16 /min Jose Najera MD Work Phone: [facility] 05-20-2022 13:28-0500 SaO2% (BldA) [Mass fraction] 97 % Jose Najera MD Work Phone: [facility] 05-20-2022 13:28-0500 Systolic blood pressure 127 mm[Hg] Jose Najera MD Work Phone: [facility] 03-18-2022 10:49-0400 Body height 170.2 cm Jose Najera MD Work Phone: [facility] 03-18-2022 10:49-0400 Body temperature 97.81 [degF] Jose Najera MD Work Phone: [facility] 03-18-2022 10:49-0400 Body weight 113.4 kg Jose Najera MD Work Phone: [facility] 03-18-2022 10:49-0400 Diastolic blood pressure 49 mm[Hg] Jose Najera MD Work Phone: [facility] 03-18-2022 10:49-0400 Heart rate 86 /min Jose Najera MD Work Phone: [facility] 03-18-2022 10:49-0400 Respiratory rate 16 /min Jose Najera MD Work Phone: [facility] 03-18-2022 10:49-0400 SaO2% (BldA) [Mass fraction] 98 % Jose Najera MD Work Phone: [facility] 03-18-2022 10:49-0400 Systolic blood pressure 145 mm[Hg] Jose Najera MD Work Phone: [facility] 03-09-2022 11:41-0400 Body height 170.2 cm Christie Phan MD Work Phone: [facility] 03-09-2022 11:41-0400 Body weight 112.49 kg Christie Phan MD Work Phone: [facility] 03-09-2022 11:41-0400 Diastolic blood pressure 100 mm[Hg] Christie Phan MD Work Phone: [facility] 03-09-2022 11:41-0400 Systolic blood pressure 158 mm[Hg] Christie Phan MD Work Phone: [facility] 03-04-2022 10:39-0400 Body height 170.2 cm Jose Najera MD Work Phone: [facility] 03-04-2022 10:39-0400 Body temperature 97.5 [degF] Jose Najera MD Work Phone: [facility] 03-04-2022 10:39-0400 Body weight 112.76 kg Jose Najera MD Work Phone: [facility] 03-04-2022 10:39-0400 Diastolic blood pressure 48 mm[Hg] Jose Najera MD Work Phone: [facility] 03-04-2022 10:39-0400 Heart rate 79 /min Jose Najera MD Work Phone: [facility] 03-04-2022 10:39-0400 Respiratory rate 16 /min Jose Najera MD Work Phone: [facility] 03-04-2022 10:39-0400 SaO2% (BldA) [Mass fraction] 99 % Jose Najera MD Work Phone: [facility] 03-04-2022 10:39-0400 Systolic blood pressure 132 mm[Hg] Jose Najera MD Work Phone: [facility] 11-26-2021 16:00-0400 Body height 168.91 cm Mirela Kelsey Other [facility] Other 11-26-2021 16:00-0400 Body mass index (BMI) [Ratio] 37.68 kg/m2 Mirela Kelsey Other [facility] Other 11-26-2021 16:00-0400 Body temperature 98.4 [degF] Mirela Kelsey Other [facility] Other 11-26-2021 16:00-0400 Body weight 107.5 kg Mirela Kelsey Other [facility] Other 11-26-2021 16:00-0400 Diastolic blood pressure 61 mm[Hg] Mirela Kelsey Other [facility] Other 11-26-2021 16:00-0400 Systolic blood pressure 115 mm[Hg] Mirela Kelsey Other [facility] Other 10-24-2021 08:18-0400 Body weight 108.86 kg Lynne Ni MD Work Phone: [facility] 10-24-2021 08:18-0400 Diastolic blood pressure 42 mm[Hg] Lynne Ni MD Work Phone: [facility] 10-24-2021 08:18-0400 Heart rate 72 /min Lynne Ni MD Work Phone: [facility] 10-24-2021 08:18-0400 Systolic blood pressure 106 mm[Hg] Lynne Ni MD Work Phone: [facility] 10-15-2021 15:45-0400 Body height 168.91 cm Mirela Kelsey Other [facility] Other 10-15-2021 15:45-0400 Body mass index (BMI) [Ratio] 38.31 kg/m2 Mirela Kelsey Other [facility] Other 10-15-2021 15:45-0400 Body temperature 98.1 [degF] Mirela Kelsey Other [facility] Other 10-15-2021 15:45-0400 Body weight 109.32 kg Mirela Kelsey Other [facility] Other 10-15-2021 15:45-0400 Diastolic blood pressure 60 mm[Hg] Mirela Kelsey Other [facility] Other 10-15-2021 15:45-0400 Systolic blood pressure 114 mm[Hg] Mirela Kelsey Other [facility] Other 09-11-2021 15:15-0400 Body height 168.91 cm Mirela Kelsey Other [facility] Other 09-11-2021 15:15-0400 Body mass index (BMI) [Ratio] 37.99 kg/m2 Mirela Kelsey Other [facility] Other 09-11-2021 15:15-0400 Body temperature 97.9 [degF] Mirela Kelsey Other [facility] Other 09-11-2021 15:15-0400 Body weight 108.41 kg Mirela Kelsey Other [facility] Other 09-11-2021 15:15-0400 Diastolic blood pressure 83 mm[Hg] Mirela Kelsey Other [facility] Other 09-11-2021 15:15-0400 Systolic blood pressure 144 mm[Hg] Mirela Kelsey Other [facility] Other 10-07-2020 12:45-0400 Diastolic blood pressure 78 mm[Hg] [facility] [employer] Phone: 10-07-2020 12:45-0400 Heart rate 68 /min [facility] [employer] Phone: 10-07-2020 12:45-0400 SaO2% (BldA) [Mass fraction] 99 % [facility] Work Phone: 10-07-2020 12:45-0400 Systolic blood pressure 112 mm[Hg] [facility] [employer] Phone: 10-07-2020 10:45-0400 Respiratory rate 22 /min [facility] Phone: 10-07-2020 09:01-0400 Body height 170.2 cm [facility] Phone: 10-07-2020 09:01-0400 Body mass index (BMI) [Ratio] 36.65 kg/m2 [facility] Phone: 10-07-2020 09:01-0400 Body temperature 97.81 [degF] [facility] Phone: 10-07-2020 09:01-0400 Body weight 106.14 kg [facility] Phone: Encounters Encounter Date Encounter Type Care Provider Facility Start: 06-10-2023 End: 06-10-2023 ambulatory MADELAINE FERRIS Facility:[facility] Start: 06-09-2023 End: 06-09-2023 ambulatory [facility] Start: 06-09-2023 End: 06-09-2023 Office outpatient new 60 minutes [facility] HIGH SCHOOL TUTOR-[employer]ER Work Phone: [facility] Comment on above: Irregular heart rate (Primary Dx); Essential hypertension; Autonomic dysfunction; Obstructive sleep apnea syndrome; Primary hypertension Start: 06-03-2023 End: 06-03-2023 ambulatory MADELAINE FERRIS Facility:[facility] Start: 06-01-2023 End: 06-01-2023 ambulatory MADELAINE FERRIS Facility:[facility] Start: 06-01-2023 End: 06-01-2023 ambulatory SHARRON ROGERS Not Available Start: 05-26-2023 End: 05-26-2023 ambulatory MADELAINE FERRIS Facility:[facility] Start: 05-26-2023 End: 05-26-2023 Office outpatient visit [...] Start: 04-16-2023 End: 04-16-2023 ambulatory MADELAINE Lynne [facility] Facility:[facility] Start: 04-16-2023 End: 04-16-2023 Nursing evaluation of patient and report Cele Marshall Work Phone: Hematology/Oncology Comment on above: 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); Elevated sed rate Start: 04-09-2023 End: 04-09-2023 ambulatory MADELAINE Lynne Cristina Facility:[facility] Start: 03-19-2023 End: 03-19-2023 ambulatory [facility] Facility:[facility] Start: 03-19-2023 End: 03-19-2023 Nursing evaluation of patient and report Cele Marshall Work Phone: Hematology/Oncology Comment on above: 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); Elevated sed rate Start: 03-16-2023 [facility] Work Phone: Neurology Comment on above: CMN Start: 03-11-2023 End: 03-11-2023 ambulatory [facility] Facility:[facility] Start: 03-11-2023 End: 03-11-2023 Nursing evaluation of patient and report Nurse Mora jian Fu Work Phone: Rheumatology Comment on above: Systemic lupus eryth ematosus, unspecified SLE type, unspecified organ involvement status (HCC) (Primary Dx) Start: 03-03-2023 End: 03-03-2023 ambulatory [facility] Facility:[facility] Start: 03-01-2023 Telephone encounter Lynne shaw MD Work Phone: Rheumatology Comment on above: Results (Eye Exam) Start: 02-19-2023 End: 02-19-2023 [facility] Facility:[facility] Start: 02-19-2023 End: 02-19-2023 Nursing evaluation of [...] Refill Request Start: 02-11-2023 End: 02-11-2023 ambulatory [facility] Facility:[facility] Start: 02-04-2023 End: 02-04-2023 ambulatory Lynne Ni [...] Elevated sed rate; Bilateral wrist pain; 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; Steroid-induced osteoporosis; 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 Start: 02-04-2023 Patient encounter procedure Clinton Schroeder (Pharmacist) [facility] Comment on above: SPP Inflammatory Con ditions - Treatment Referral (Benlysta); Insurance Authorization ([place] submission pending) Start: 02-04-2023 Telephone encounter Lynne shaw MD Work Phone: Rheumatology Comment on above: Appointment; Orders; Medication Authorization Start: 02-04-2023 End: 02-04-2023 ambulatory [facility] Facility:[facility] Start: 02-04-2023 End: 02-04-2023 Telemedicine consultation with patient Lynne Ni MD Work Phone: [facility] Start: 01-28-2023 Refill Christie Hays Work Phone: Integrated Medicine Comment on above: Refill Request Start: 01-24-2023 Telephone encounter Lynne shaw MD Work Phone: Rheumatology Comment on above: Results Start: 01-22-2023 End: 01-22-2023 ambulatory [facility] Facility:[facility] Start: 01-22-2023 End: 01-22-2023 Nursing evaluation of patient and report Sc Nurse Dre Marshall Work Phone: Hematology/Oncology Comment [...] with patient Misty Nelson MD Work Phone: [facility] Start: 12-29-2022 End: 12-29-2022 ambulatory MADELAINE Batista Cristina Facility:[facility] Start: 12-24-2022 Refill Christie Hays Work Phone: [facility] Comment on above: Refill Request Start: 12-18-2022 Telephone encounter Lidia Argueta RN Work Phone: Hematology/Oncology Comment on above: Care Coordination (a ppointment) Start: 12-17-2022 End: 12-18-2022 ambulatory MADELAINE Batista Cristina Facility:[facility] Start: 12-17-2022 End: 12-18-2022 ambulatory Wilmer Driver APRN.[employer] Work Phone: Hematology/Oncology Comment on above: 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); Chronic fatigue and malaise Start: 12-17-2022 End: 12-18-2022 Telemedicine consultation with patient Wilmer Driver APRN.[employer] DEALER Work Phone: [facility] Start: 12-16-2022 Telephone encounter [...] 11-19-2022 End: 11-19-2022 ambulatory MADELAINE Lynne Cristina Facility:[facility] Start: 11-19-2022 End: 11-19-2022 Nursing evaluation of patient and report Cele Marshall Work Phone: Hematology/Oncology Comment on above: 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); Elevated sed rate Start: 10-29-2022 End: 10-29-2022 ambulatory MADELAINE FERRIS Facility:[facility] Start: 10-22-2022 End: 10-22-2022 ambulatory MADELAINE FERRIS Facility:[facility] Start: 10-22-2022 End: 10-22-2022 Nursing evaluation of [...] Start: 10-15-2022 End: 10-15-2022 ambulatory MADELAINE FERRIS Facility:[facility] Start: 09-24-2022 End: 09-25-2022 ambulatory MICKY PARNELL . Facility: Start: 09-24-2022 End: 09-24-2022 ambulatory MADELAINE FERRIS Facility:[facility] Start: 09-24-2022 End: 09-24-2022 Nursing evaluation of patient and report Cele Marshall Work Phone: Hematology/Oncology Comment on above: 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); Elevated sed rate Start: 09-10-2022 End: 09-10-[address] MADELAINE FERRIS . Facility: Start: 09-08-2022 Telephone encounter Angelia [facility] Comment on above: Compliance Adherence Start: 09-07-2022 End: 09-07-2022 ambulatory MADELAINE FERRIS Facility:[facility] Start: 09-07-2022 End: 09-07-2022 Office outpatient visit [...] 08-27-2022 Nursing evaluation of patient and report Sc Nurse Dre Marshall Work Phone: Hematology/Oncology Comment on above: 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); Elevated sed rate Start: 08-27-2022 End: 08-27-2022 ambulatory Wilmer Driver APRN.[employer] Work Phone: Hematology/Oncology Comment on above: 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); Elevated sed rate; High total serum IgM; Chronic fatigue and malaise; JOSE RAFAEL (obstructive sleep apnea) Start: 08-27-2022 End: 08-27-2022 Patient encounter procedure Wilmer Driver APRN.[employer] DEALER Work Phone: [facility] Start: 08-19-2022 Telephone encounter Lynne shaw MD Work Phone: Rheumatology Comment on above: Results Start: 08-18-2022 End: 08-18-2022 ambulatory MADELAINE FERRIS Facility:[facility] Start: 08-15-2022 ambulatory Lynne Ni MD Work Phone: Rheumatology Comment on above: update Start: 08-10-2022 Refill Christie Hays Work Phone: [facility] Comment on above: Refill Request Start: 07-27-2022 End: 07-27-2022 ambulatory MADELAINE FERRIS Facility:[facility] Start: 07-27-2022 End: 07-27-2022 ambulatory Timmy Heck APRN.[employer] Work Phone: Neurology Comment on above: JOSE RAFAEL (obstructive sle ep apnea) (Primary Dx) Start: 07-27-2022 End: 07-27-2022 Telemedicine consultation with patient Timmy Heck APRN.[employer] DEALER Work Phone: [facility] Start: 07-24-2022 ambulatory Lynne Ni MD Work Phone: Rheumatology Comment on above: Blood work Start: 07-24-2022 Telephone encounter Jose hooker MD Work Phone: Hematology/Oncology Comment on above: Orders (Lab Orders E xpire Before Appointment) Start: 07-21-2022 ambulatory Lawanda Miranda MD Work Phone: [facility] Start: 07-21-2022 Patient encounter procedure [...] Start: 03-31-2022 Refill Christie Hays Work Phone: [facility] Comment on above: [...] m caregiver Christie Phan MD Work Phone: [facility] Start: 03-18-2022 End: 03-18-2022 Patient encounter procedure Jose Najera MD Work Phone: [place] Start: 03-12-2022 End: 03-13-[address] MADELAINE FERRIS . Facility: Start: 03-10-2022 End: 03-10-2022 ambulatory Tiffany Adilene DO Work Phone: Infectious Disease Comment on above: results Raised level of immu noglobulins (Primary Dx); Wound healing, delayed; Current smoker Start: 03-10-2022 E-mail encounter fro m caregiver Tiffany Head Work Phone: [facility] Start: 03-10-2022 End: 03-10-2022 [facility]medicine consultation with [facility] Start: 03-09-2022 End: 03-10-2022 ambulatory GAY ENCIOS Facility:[facility] Start: 03-09-2022 End: 03-09-2022 Office consultation new/estab patient 80 min Christie Phan MD Work Phone: [facility] Comment on above: Obesity, Class II, B DE 35-39.9 (Primary Dx); Somnolence, daytime; Chronic fatigue [...] Results Start: 03-04-2022 End: 03-04-2022 ambulatory Jose Njaera MD Work Phone: Hematology/Oncology Comment on above: [...] with patient Tiffany Head DO Work Phone: [facility] Start: 02-14-2022 End: 02-15-[address] MADELAINE FERRIS . Facility:[facility] Start: 11-26-2021 End: 11-26-2021 ambulatory Mirela Kelsey Other [facility] Other Start: 11-26-2021 Office outpatient vi sit [...] 10-15-2021 End: 10-15-2021 ambulatory Mirela Kelsey Other [facility] Other Start: 10-15-2021 Office outpatient vi sit 25 minutes Mirela LOPEZ Infectious Disease Start: 10-03-2021 End: [address] MIRELA KELSEY Facility:[facility] Start: 09-18-2021 End: 09-18-2021 ambulatory Mirela Kelsey Other [facility] Other Start: 09-18-2021 Telephone encounter Mirela Kelsey FP [facility] Infectious Disease Start: 09-11-2021 End: 09-11-2021 ambulatory Mirela Kelsey Other [facility] [employer] Other Start: 09-11-2021 Office outpatient ne w 45 minutes Mirela Kelsey [facility] Infect[facility] Disease Start: 10-07-2020 End: 10-08-2020 ambulatory JAREN HOLLEY [facility] Start: 10-07-2020 End: 10-07-2020 Subsequent hospital visit by physician Stv Surface Water Technician Rm Al STVZ Surface Water Technician Comment on above: Arrived Start: 09-17-2018 End: 09-17-2018 Patient encounter procedure Bettina Jiménez Facility:[facility] Start: 09-14-2018 End: 09-17-2018 Patient encounter procedure VICTOR MANUEL Batista THOMAS [facility] Procedures Date Procedure Procedure Detail Performing Clinician Start: 06-09-2023 ECG 12-LEAD MICHELLE [place] Start: 06-09-2023 Ecg routine ecg w/le ast 12 lds w/i&r Michelle Britton [employer] TUTOR-[employer]ER Work Phone: Start: 10-07-2020 End: 10-07-2020 Cardiac [...] Start: 03-17-2025 Diabetes mellitus screening Diabetes Screening [facility] Start: 07-19-2023 End: 07-19-2023 Patient encounter procedure 07/19/2023 9:15 AM EST Office Visit [facility] [address] [place] [id number] Aurora Patel MD [address] [facility] [address] [place] [address] [facility] Start: 06-09-2023 End: 06-09-2024 Holter monitor study Holter Or Event [employer] Standards Coach Cardiac Services Routine Irregular heart rate Expected: 06/09/2023 (Approximate), Expires: 06/09/2024 [facility] Work Phone: Comment on above: Expected: 06/09/2023 (Approximate), Expires: 06/09/2024 Start: 06-09-2023 End: 06-09-2024 Lipid 1996 panel - Serum or Plasma Lipid Panel Lab Routine Primary hypertension Expected: 06/09/2023 (Approximate), Expires: 06/09/2024 [facility] Work Phone: Comment on above: Expected: 06/09/2023 (Approximate), Expires: 06/09/2024 Start: 06-09-2023 End: 06-09-2024 Thyrotropin [Units/volume] in Serum or Plasma Thyroid Stimulating Hormone Lab Routine Irregular heart rate Expected: 06/09/2023 (Approximate), Expires: 06/09/2024 [facility] Work Phone: Comment on above: Expected: 06/09/2023 (Approximate), Expires: 06/09/2024 Start: 06-09-2023 End: 06-09-2024 Thyroxine (T4) free [Mass/volume] in Serum or Plasma Thyroxine, Free Lab Routine Irregular heart rate Expected: 06/09/2023 (Approximate), Expires: 06/09/2024 [facility] Work Phone: Comment on above: Expected: 06/09/2023 (Approximate), Expires: 06/09/2024 Start: 06-09-2023 End: 06-09-2025 US Heart Transthoracic Transthoracic Echo (TTE) Complete Echocardiography Routine Irregular heart rate Obstructive sleep apnea syndrome Expected: 06/09/2023 (Approximate), Expires: 06/09/2025 [facility] Service Area Work Phone: Comment on above: Expected: 06/09/2023 (Approximate), Expires: 06/09/2025 Start: 04-25-2023 End: 01-25-2024 25-hydroxyvitamin D3 [Mass/volume] in Serum or Plasma VITAMIN D 25 HYDROXY Lab Routine Vitamin D deficiency Expected: 04/25/2023 (Approximate), Expires: 01/25/2024 [facility] Work Phone: Comment on above: Expected: 04/25/2023 (Approximate), Expires: 01/25/2024 Start: 04-25-2023 End: 01-25-2024 C reactive protein [Mass/volume] in Serum or Plasma C-REACTIVE PROTEIN (CRP) Lab Routine Elevated sed rate Elevated C-reactive protein (CRP) Expected: 04/25/2023 (Approximate), Expires: 01/25/2024 [facility] Work Phone: Comment on above: Expected: 04/25/2023 (Approximate), Expires: 01/25/2024 Start: 04-25-2023 End: 01-25-2024 CBC panel - Blood by Automated count CBC Lab Routine Anemia of chronic disease Expected: 04/25/2023 (Approximate), Expires: 01/25/2024 [facility] Work Phone: Comment on above: Expected: 04/25/2023 (Approximate), Expires: 01/25/2024 Start: 04-25-2023 End: 01-25-2024 Comprehensive metabolic 2000 panel - Serum or Plasma COMP METABOLIC PANEL Lab Routine Elevated LFTs Expected: 04/25/2023 (Approximate), Expires: 01/25/2024 [facility] Work Phone: Comment on above: Expected: 04/25/2023 (Approximate), Expires: 01/25/2024 Start: 04-25-2023 End: 01-25-2024 Erythrocyte sedimentation rate SED RATE WESTERGREN Lab Routine Elevated sed rate Elevated C-reactive protein (CRP) Expected: 04/25/2023 (Approximate), Expires: 01/25/2024 [facility] Work Phone: Comment on above: Expected: 04/25/2023 (Approximate), Expires: 01/25/2024 Start: 04-20-2023 COVID-19 Vaccine (4 - Pfizer risk series) COVID-19 Vaccine (4 - Pfizer risk series) [facility] Start: 04-20-2023 Covid-19 Vaccine () Covid-19 Vaccine () [facility] Start: 04-20-2023 Covid-19 Vaccine () Covid-19 Vaccine () [facility] Start: 04-16-2023 End: 02-20-2024 CBC W Auto Differential panel - Blood CBC + DIFF Lab Routine Megaloblastic anemia due to vitamin B12 deficiency Elevated sed rate Chronic fatigue and malaise High total serum IgM JOSE RAFAEL (obstructive sleep apnea) Expected: 04/16/2023 (Approximate), Expires: 02/20/2024 [facility] Work Phone: Comment on above: Expected: 04/16/2023 (Approximate), Expires: 02/20/2024 Start: 04-16-2023 End: 02-20-2024 Cobalamin (Vitamin B12) [Mass/volume] in Serum or Plasma VITAMIN B12 BLOOD Lab Routine Megaloblastic anemia due to vitamin B12 deficiency Elevated sed rate Chronic fatigue and malaise High total serum IgM JOSE RAFAEL (obstructive sleep apnea) Expected: 04/16/2023 (Approximate), Expires: 02/20/2024 [facility] Work Phone: Comment on above: Expected: 04/16/2023 (Approximate), Expires: 02/20/2024 Start: 04-16-2023 End: 02-20-2024 Comprehensive metabolic 2000 panel - Serum or Plasma COMP METABOLIC PANEL Lab Routine Megaloblastic anemia due to vitamin B12 deficiency Elevated sed rate Chronic fatigue and malaise High total serum IgM JOSE RAFAEL (obstructive sleep apnea) Expected: 04/16/2023 (Approximate), Expires: 02/20/2024 [facility] Work Phone: Comment on above: Expected: 04/16/2023 (Approximate), Expires: 02/20/2024 Start: 04-16-2023 End: 02-20-2024 Ferritin [Mass/volume] in Serum or Plasma FERRITIN BLD Lab Routine Megaloblastic anemia due to vitamin B12 deficiency Elevated sed rate Chronic fatigue and malaise High total serum IgM JOSE RAFAEL (obstructive sleep apnea) Expected: 04/16/2023 (Approximate), Expires: 02/20/2024 [facility] Work Phone: Comment on above: Expected: 04/16/2023 (Approximate), Expires: 02/20/2024 Start: 04-16-2023 End: 02-20-2024 Folate [Mass/volume] in Serum or Plasma FOLATE SERUM Lab Routine Megaloblastic anemia due to vitamin B12 deficiency Elevated sed rate Chronic fatigue and malaise High total serum IgM JOSE RAFAEL (obstructive sleep apnea) Expected: 04/16/2023 (Approximate), Expires: 02/20/2024 [facility] Work Phone: Comment on above: Expected: 04/16/2023 (Approximate), Expires: 02/20/2024 Start: 04-16-2023 End: 02-20-2024 Iron and Iron binding capacity panel - Serum or Plasma IRON + TIBC Lab Routine Megaloblastic anemia due to vitamin B12 deficiency Elevated sed rate Chronic fatigue and malaise High total serum IgM JOSE RAFAEL (obstructive sleep apnea) Expected: 04/16/2023 (Approximate), Expires: 02/20/2024 [facility] Work Phone: Comment on above: Expected: 04/16/2023 (Approximate), Expires: 02/20/2024 Start: 03-10-2023 End: 06-09-2023 Insulin [Units/volume] in Serum or Plasma INSULIN ASSAY BLOOD Lab Routine Insulin resistance, unspecified Expected: 03/10/2023, Expires: 06/09/2023 [facility] Work Phone: Comment on above: Expected: 03/10/2023 , Expires: 06/09/2023 Start: 03-10-2023 End: 06-09-2023 INSULIN ANTIBODY BLD INSULIN ANTIBODY BLD Lab Routine Insulin resistance, unspecified Expected: 03/10/2023, Expires: 06/09/2023 [facility] Work Phone: Comment on above: Expected: 03/10/2023 , Expires: 06/09/2023 Start: 02-11-2023 End: 02-08-2024 [id number] [Mass/volume] in Serum or Plasma B2 MICROGLOBULIN B Lab Routine Megaloblastic anemia due to vitamin B12 deficiency High total serum IgM Elevated sed rate Expected: 02/11/2023 (Approximate), Expires: 02/08/2024 [facility] Work Phone: Comment on above: Expected: 02/11/2023 (Approximate), Expires: 02/08/2024 Start: 02-11-2023 End: 02-08-2024 Calcium.ionized [Moles/volume] in Blood CALCIUM IONIZED BLOOD Lab Routine Megaloblastic anemia due to vitamin B12 deficiency High total serum IgM Elevated sed rate Expected: 02/11/2023 (Approximate), Expires: 02/08/2024 [facility] Work Phone: Comment on above: Expected: 02/11/2023 (Approximate), Expires: 02/08/2024 Start: 02-11-2023 End: 02-08-2024 CBC W Auto Differential panel - Blood CBC + DIFF Lab Routine Megaloblastic anemia due to vitamin B12 deficiency High total serum IgM Elevated sed rate Expected: 02/11/2023 (Approximate), Expires: 02/08/2024 [facility] Work Phone: Comment on above: Expected: 02/11/2023 (Approximate), Expires: 02/08/2024 Start: 02-11-2023 End: 02-08-2024 Cobalamin (Vitamin B12) [Mass/volume] in Serum or Plasma VITAMIN B12 BLOOD Lab Routine Megaloblastic anemia due to vitamin B12 deficiency High total serum IgM Elevated sed rate Expected: 02/11/2023 (Approximate), Expires: 02/08/2024 [facility] Work Phone: Comment on above: Expected: 02/11/2023 (Approximate), Expires: 02/08/2024 Start: 02-11-2023 End: 02-08-2024 Comprehensive metabolic 2000 panel - Serum or Plasma COMP METABOLIC PANEL Lab Routine Megaloblastic anemia due to vitamin B12 deficiency High total serum IgM Elevated sed rate Expected: 02/11/2023 (Approximate), Expires: 02/08/2024 [facility] Work Phone: Comment on above: Expected: 02/11/2023 (Approximate), Expires: 02/08/2024 Start: 02-11-2023 End: 02-08-2024 Ferritin [Mass/volume] in Serum or Plasma FERRITIN BLD Lab Routine Megaloblastic anemia due to vitamin B12 deficiency High total serum IgM Elevated sed rate Expected: 02/11/2023 (Approximate), Expires: 02/08/2024 [facility] Work Phone: Comment on above: Expected: 02/11/2023 (Approximate), Expires: 02/08/2024 Start: 02-11-2023 End: 02-08-2024 Folate [Mass/volume] in Serum or Plasma FOLATE SERUM Lab Routine Megaloblastic anemia due to vitamin B12 deficiency High total serum IgM Elevated sed rate Expected: 02/11/2023 (Approximate), Expires: 02/08/2024 [facility] Work Phone: Comment on above: Expected: 02/11/2023 (Approximate), Expires: 02/08/2024 Start: 02-11-2023 End: 02-08-2024 Iron and Iron binding capacity panel - Serum or Plasma IRON + TIBC Lab Routine Megaloblastic anemia due to vitamin B12 deficiency High total serum IgM Elevated sed rate Expected: 02/11/2023 (Approximate), Expires: 02/08/2024 [facility] Work Phone: Comment on above: Expected: 02/11/2023 (Approximate), Expires: 02/08/2024 Start: 02-11-2023 End: 04-13-2023 KAPPA/FARMER,FREE,SER KAPPA/FARMER,FREE,SER Lab Routine Megaloblastic anemia due to vitamin B12 deficiency High total serum IgM Elevated sed rate Expected: 02/11/2023 (Approximate), Expires: 04/13/2023 [facility] Work Phone: Comment on above: Expected: 02/11/2023 (Approximate), Expires: 04/13/2023 Start: 02-11-2023 End: 02-08-2024 Lactate dehydrogenase [Enzymatic activity/volume] in Serum or Plasma LD LACTATE DEHYDRO Lab Routine Megaloblastic anemia due to vitamin B12 deficiency High total serum IgM Elevated sed rate Expected: 02/11/2023 (Approximate), Expires: 02/08/2024 [facility] Work Phone: Comment on above: Expected: 02/11/2023 (Approximate), Expires: 02/08/2024 Start: 02-11-2023 End: 02-08-2024 MONOCLONAL PROTEIN, SERUM (BLOOD) MONOCLONAL PROTEIN, SERUM (BLOOD) Lab Routine Megaloblastic anemia due to vitamin B12 deficiency High total serum IgM Elevated sed rate Expected: 02/11/2023 (Approximate), Expires: 02/08/2024 [facility] Work Phone: Comment on above: Expected: 02/11/2023 (Approximate), Expires: 02/08/2024 Start: 02-11-2023 End: 02-08-2024 Phosphate [Mass/volume] in Serum or Plasma PHOSPHORUS INORGANIC Lab Routine Megaloblastic anemia due to vitamin B12 deficiency High total serum IgM Elevated sed rate Expected: 02/11/2023 (Approximate), Expires: 02/08/2024 [facility] Work Phone: Comment on above: Expected: 02/11/2023 (Approximate), Expires: 02/08/2024 Start: 02-11-2023 End: 02-08-2024 PROTEIN ELECTROPHORESIS SERUM W/INTERP PROTEIN ELECTROPHORESIS SERUM W/INTERP Lab Routine Megaloblastic anemia due to vitamin B12 deficiency High total serum IgM Elevated sed rate Expected: 02/11/2023 (Approximate), Expires: 02/08/2024 [facility] Work Phone: Comment on above: Expected: 02/11/2023 (Approximate), Expires: 02/08/2024 Start: 02-11-2023 End: 02-08-2024 Urate [Mass/volume] in Serum or Plasma URIC ACID BLOOD Lab Routine Megaloblastic anemia due to vitamin B12 deficiency High total serum IgM Elevated sed rate Expected: 02/11/2023 (Approximate), Expires: 02/08/2024 [facility] Work Phone: Comment on above: Expected: 02/11/2023 (Approximate), Expires: 02/08/2024 Start: 01-22-2023 Influenza vaccination C [facility] Start: 12-17-2022 End: 10-23-2023 CBC W Auto Differential panel - Blood CBC + DIFF Lab Routine Megaloblastic anemia due to vitamin B12 deficiency Expected: 12/17/2022 (Approximate), Expires: 10/23/2023 [facility] Work Phone: Comment on above: Expected: 12/17/2022 (Approximate), Expires: 10/23/2023 Start: 12-17-2022 End: 10-23-2023 Cobalamin (Vitamin B12) [Mass/volume] in Serum or Plasma VITAMIN B12 BLOOD Lab Routine Megaloblastic anemia due to vitamin B12 deficiency Expected: 12/17/2022 (Approximate), Expires: 10/23/2023 [facility] Work Phone: Comment on above: Expected: 12/17/2022 (Approximate), Expires: 10/23/2023 Start: 12-17-2022 End: 10-23-2023 Comprehensive metabolic 2000 panel - Serum or Plasma COMP METABOLIC PANEL Lab Routine Megaloblastic anemia due to vitamin B12 deficiency Expected: 12/17/2022 (Approximate), Expires: 10/23/2023 [facility] Work Phone: Comment on above: Expected: 12/17/2022 (Approximate), Expires: 10/23/2023 Start: 12-17-2022 End: 10-23-2023 Ferritin [Mass/volume] in Serum or Plasma FERRITIN BLD Lab Routine Megaloblastic anemia due to vitamin B12 deficiency Expected: 12/17/2022 (Approximate), Expires: 10/23/2023 [facility] Work Phone: Comment on above: Expected: 12/17/2022 (Approximate), Expires: 10/23/2023 Start: 12-17-2022 End: 10-23-2023 Folate [Mass/volume] in Serum or Plasma FOLATE SERUM Lab Routine Megaloblastic anemia due to vitamin B12 deficiency Expected: 12/17/2022 (Approximate), Expires: 10/23/2023 [facility] Work Phone: Comment on above: Expected: 12/17/2022 (Approximate), Expires: 10/23/2023 Start: 12-17-2022 End: 10-23-2023 Iron and Iron binding capacity panel - Serum or Plasma IRON + TIBC Lab Routine Megaloblastic anemia due to vitamin B12 deficiency Expected: 12/17/2022 (Approximate), Expires: 10/23/2023 [facility] Work Phone: Comment on above: Expected: 12/17/2022 (Approximate), Expires: 10/23/2023 Start: 10-23-2022 End: 12-23-2022 25-hydroxyvitamin D3 [Mass/volume] in Serum or Plasma VITAMIN D 25 HYDROXY Lab Routine Megaloblastic anemia due to vitamin B12 deficiency Elevated sed rate High total serum IgM Chronic fatigue and malaise JOSE RAFAEL (obstructive sleep apnea) Expected: 10/23/2022, Expires: 12/23/2022 [facility] Work Phone: Comment on above: Expected: 10/23/2022 , Expires: 12/23/2022 Start: 10-23-2022 End: 12-23-2022 C reactive protein [Mass/volume] in Serum or Plasma C-REACTIVE PROTEIN (CRP) Lab Routine Megaloblastic anemia due to vitamin B12 deficiency Elevated sed rate High total serum IgM Chronic fatigue and malaise JOSE RAFAEL (obstructive sleep apnea) Expected: 10/23/2022, Expires: 12/23/2022 [facility] Work Phone: Comment on above: Expected: 10/23/2022 , Expires: 12/23/2022 Start: 10-23-2022 End: 12-23-2022 CBC W Auto Differential panel - Blood CBC + DIFF Lab Routine Megaloblastic anemia due to vitamin B12 deficiency Elevated sed rate High total serum IgM Chronic fatigue and malaise JOSE RAFAEL (obstructive sleep apnea) Expected: 10/23/2022, Expires: 12/23/2022 [facility] Work Phone: Comment on above: Expected: 10/23/2022 , Expires: 12/23/2022 Start: 10-23-2022 End: 12-23-2022 Cobalamin (Vitamin B12) [Mass/volume] in Serum or Plasma VITAMIN B12 BLOOD Lab Routine Megaloblastic anemia due to vitamin B12 deficiency Elevated sed rate High total serum IgM Chronic fatigue and malaise JOSE RAFAEL (obstructive sleep apnea) Expected: 10/23/2022, Expires: 12/23/2022 [facility] Work Phone: Comment on above: Expected: 10/23/2022 , Expires: 12/23/2022 Start: 10-23-2022 End: 12-23-2022 Comprehensive metabolic 2000 panel - Serum or Plasma COMP METABOLIC PANEL Lab Routine Megaloblastic anemia due to vitamin B12 deficiency Elevated sed rate High total serum IgM Chronic fatigue and malaise JOSE RAFAEL (obstructive sleep apnea) Expected: 10/23/2022, Expires: 12/23/2022 [facility] Work Phone: Comment on above: Expected: 10/23/2022 , Expires: 12/23/2022 Start: 10-23-2022 End: 12-23-2022 Erythrocyte sedimentation rate SED RATE WESTERGREN Lab Routine Megaloblastic anemia due to vitamin B12 deficiency Elevated sed rate High total serum IgM Chronic fatigue and malaise JOSE RAFAEL (obstructive sleep apnea) Expected: 10/23/2022, Expires: 12/23/2022 [facility] Work Phone: Comment on above: Expected: 10/23/2022 , Expires: 12/23/2022 Start: 10-23-2022 End: 12-23-2022 Lactate dehydrogenase [Enzymatic activity/volume] in Serum or Plasma LD LACTATE DEHYDRO Lab Routine Megaloblastic anemia due to vitamin B12 deficiency Elevated sed rate High total serum IgM Chronic fatigue and malaise JOSE RAFAEL (obstructive sleep apnea) Expected: 10/23/2022, Expires: 12/23/2022 [facility] Work Phone: Comment on above: Expected: 10/23/2022 , Expires: 12/23/2022 Start: 10-23-2022 End: 12-23-2022 MONOCLONAL PROTEIN, SERUM (BLOOD) MONOCLONAL PROTEIN, SERUM (BLOOD) Lab Routine Megaloblastic anemia due to vitamin B12 deficiency Elevated sed rate High total serum IgM Chronic fatigue and malaise JOSE RAFAEL (obstructive sleep apnea) Expected: 10/23/2022, Expires: 12/23/2022 [facility] Work Phone: Comment on above: Expected: 10/23/2022 , Expires: 12/23/2022 Start: 10-23-2022 End: 12-23-2022 PROT ELECT SERUM WITH DANA AND INTERP PROT ELECT SERUM WITH DANA AND INTERP Lab Routine Megaloblastic anemia due to vitamin B12 deficiency Elevated sed rate High total serum IgM Chronic fatigue and malaise JOSE RAFAEL (obstructive sleep apnea) Expected: 10/23/2022, Expires: 12/23/2022 [facility] Work Phone: Comment on above: Expected: 10/23/2022 , Expires: 12/23/2022 Start: 09-19-2022 End: 08-20-2023 CBC panel - Blood by Automated count CBC Lab Routine Anemia of chronic disease Expected: 09/19/2022 (Approximate), Expires: 08/20/2023 [facility] Work Phone: Comment on above: Expected: 09/19/2022 (Approximate), Expires: 08/20/2023 Start: 09-19-2022 End: 08-20-2023 Comprehensive metabolic 2000 panel - Serum or Plasma COMP METABOLIC PANEL Lab Routine Elevated LFTs Expected: 09/19/2022 (Approximate), Expires: 08/20/2023 [facility] Work Phone: Comment on above: Expected: 09/19/2022 (Approximate), Expires: 08/20/2023 Start: 09-19-2022 End: 11-19-2022 TPMT PHENOTYPE/ENZYME ACTIVITY TPMT PHENOTYPE/ENZYME ACTIVITY Lab Routine 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 skilled nursing 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 Expected: 09/19/2022 (Approximate), Expires: 11/19/2022 [facility] Work Phone: Comment on above: Expected: 09/19/2022 (Approximate), Expires: 11/19/2022 Start: 08-28-2022 End: 10-28-2022 25-hydroxyvitamin D3 [Mass/volume] in Serum or Plasma VITAMIN D 25 HYDROXY Lab Routine Megaloblastic anemia due to vitamin B12 deficiency Elevated sed rate High total serum IgM Chronic fatigue and malaise Expected: 08/28/2022 (Approximate), Expires: 10/28/2022 [facility] Work Phone: Comment on above: Expected: 08/28/2022 (Approximate), Expires: 10/28/2022 Start: 08-28-2022 End: 07-26-2023 [id number] [Mass/volume] in Serum or Plasma B2 MICROGLOBULIN B Lab Routine Megaloblastic anemia due to vitamin B12 deficiency Elevated sed rate High total serum IgM Chronic fatigue and malaise Expected: 08/28/2022 (Approximate), Expires: 07/26/2023 [facility] Work Phone: Comment on above: Expected: 08/28/2022 (Approximate), Expires: 07/26/2023 Start: 08-28-2022 End: 10-28-2022 C reactive protein [Mass/volume] in Serum or Plasma C-REACTIVE PROTEIN (CRP) Lab Routine Megaloblastic anemia due to vitamin B12 deficiency Elevated sed rate High total serum IgM Chronic fatigue and malaise Expected: 08/28/2022 (Approximate), Expires: 10/28/2022 [facility] Work Phone: Comment on above: Expected: 08/28/2022 (Approximate), Expires: 10/28/2022 Start: 08-28-2022 End: 07-26-2023 Calcium.ionized [Moles/volume] in Blood CALCIUM IONIZED BLOOD Lab Routine Megaloblastic anemia due to vitamin B12 deficiency Elevated sed rate High total serum IgM Chronic fatigue and malaise Expected: 08/28/2022 (Approximate), Expires: 07/26/2023 [facility] Work Phone: Comment on above: Expected: 08/28/2022 (Approximate), Expires: 07/26/2023 Start: 08-28-2022 End: 07-26-2023 CBC W Auto Differential panel - Blood CBC + DIFF Lab Routine Megaloblastic anemia due to vitamin B12 deficiency Elevated sed rate High total serum IgM Chronic fatigue and malaise Expected: 08/28/2022 (Approximate), Expires: 07/26/2023 [facility] Work Phone: Comment on above: Expected: 08/28/2022 (Approximate), Expires: 07/26/2023 Start: 08-28-2022 End: 10-28-2022 Cobalamin (Vitamin B12) [Mass/volume] in Serum or Plasma VITAMIN B12 BLOOD Lab Routine Megaloblastic anemia due to vitamin B12 deficiency Elevated sed rate High total serum IgM Chronic fatigue and malaise Expected: 08/28/2022 (Approximate), Expires: 10/28/2022 [facility] Work Phone: Comment on above: Expected: 08/28/2022 (Approximate), Expires: 10/28/2022 Start: 08-28-2022 End: 07-26-2023 Comprehensive metabolic 2000 panel - Serum or Plasma COMP METABOLIC PANEL Lab Routine Megaloblastic anemia due to vitamin B12 deficiency Elevated sed rate High total serum IgM Chronic fatigue and malaise Expected: 08/28/2022 (Approximate), Expires: 07/26/2023 [facility] Work Phone: Comment on above: Expected: 08/28/2022 (Approximate), Expires: 07/26/2023 Start: 08-28-2022 End: 10-28-2022 Erythrocyte sedimentation rate SED RATE WESTERGREN Lab Routine Megaloblastic anemia due to vitamin B12 deficiency Elevated sed rate High total serum IgM Chronic fatigue and malaise Expected: 08/28/2022 (Approximate), Expires: 10/28/2022 [facility] Work Phone: Comment on above: Expected: 08/28/2022 (Approximate), Expires: 10/28/2022 Start: 08-28-2022 End: 10-28-2022 KAPPA/FARMER,FREE,SER KAPPA/FARMER,FREE,SER Lab Routine Megaloblastic anemia due to vitamin B12 deficiency Elevated sed rate High total serum IgM Chronic fatigue and malaise Expected: 08/28/2022 (Approximate), Expires: 10/28/2022 [facility] Work Phone: Comment on above: Expected: 08/28/2022 (Approximate), Expires: 10/28/2022 Start: 08-28-2022 End: 07-26-2023 Lactate dehydrogenase [Enzymatic activity/volume] in Serum or Plasma LD LACTATE DEHYDRO Lab Routine Megaloblastic anemia due to vitamin B12 deficiency Elevated sed rate High total serum IgM Chronic fatigue and malaise Expected: 08/28/2022 (Approximate), Expires: 07/26/2023 [facility] Work Phone: Comment on above: Expected: 08/28/2022 (Approximate), Expires: 07/26/2023 Start: 08-28-2022 End: 07-26-2023 MONOCLONAL PROTEIN, SERUM (BLOOD) MONOCLONAL PROTEIN, SERUM (BLOOD) Lab Routine Megaloblastic anemia due to vitamin B12 deficiency Elevated sed rate High total serum IgM Chronic fatigue and malaise Expected: 08/28/2022 (Approximate), Expires: 07/26/2023 [facility] Work Phone: Comment on above: Expected: 08/28/2022 (Approximate), Expires: 07/26/2023 Start: 08-28-2022 End: 07-26-2023 Phosphate [Mass/volume] in Serum or Plasma PHOSPHORUS INORGANIC Lab Routine Megaloblastic anemia due to vitamin B12 deficiency Elevated sed rate High total serum IgM Chronic fatigue and malaise Expected: 08/28/2022 (Approximate), Expires: 07/26/2023 [facility] Work Phone: Comment on above: Expected: 08/28/2022 (Approximate), Expires: 07/26/2023 Start: 08-28-2022 End: 07-26-2023 PROTEIN ELECTROPHORESIS SERUM W/INTERP PROTEIN ELECTROPHORESIS SERUM W/INTERP Lab Routine Megaloblastic anemia due to vitamin B12 deficiency Elevated sed rate High total serum IgM Chronic fatigue and malaise Expected: 08/28/2022 (Approximate), Expires: 07/26/2023 [facility] Work Phone: Comment on above: Expected: 08/28/2022 (Approximate), Expires: 07/26/2023 Start: 08-28-2022 End: 07-26-2023 Urate [Mass/volume] in Serum or Plasma URIC ACID BLOOD Lab Routine Megaloblastic anemia due to vitamin B12 deficiency Elevated sed rate High total serum IgM Chronic fatigue and malaise Expected: 08/28/2022 (Approximate), Expires: 07/26/2023 [facility] Work Phone: Comment on above: Expected: 08/28/2022 (Approximate), Expires: 07/26/2023 Start: 07-15-2022 End: 05-20-2023 [id number] [Mass/volume] in Serum or Plasma B2 MICROGLOBULIN B Lab Routine High total serum IgM Expected: 07/15/2022 (Approximate), Expires: 05/20/2023 [facility] Work Phone: Comment on above: Expected: 07/15/2022 (Approximate), Expires: 05/20/2023 Start: 07-15-2022 End: 05-20-2023 Calcium.ionized [Moles/volume] in Blood CALCIUM IONIZED BLOOD Lab Routine High total serum IgM Expected: 07/15/2022 (Approximate), Expires: 05/20/2023 [facility] Work Phone: Comment on above: Expected: 07/15/2022 (Approximate), Expires: 05/20/2023 Start: 07-15-2022 End: 05-20-2023 CBC W Auto Differential panel - Blood CBC + DIFF Lab Routine High total serum IgM Expected: 07/15/2022 (Approximate), Expires: 05/20/2023 [facility] Work Phone: Comment on above: Expected: 07/15/2022 (Approximate), Expires: 05/20/2023 Start: 07-15-2022 End: 05-20-2023 Comprehensive metabolic 2000 panel - Serum or Plasma COMP METABOLIC PANEL Lab Routine High total serum IgM Expected: 07/15/2022 (Approximate), Expires: 05/20/2023 [facility] Work Phone: Comment on above: Expected: 07/15/2022 (Approximate), Expires: 05/20/2023 Start: 07-15-2022 End: 09-14-2022 KAPPA/FARMER,FREE,SER KAPPA/FARMER,FREE,SER Lab Routine High total serum IgM Expected: 07/15/2022 (Approximate), Expires: 09/14/2022 [facility] Work Phone: Comment on above: Expected: 07/15/2022 (Approximate), Expires: 09/14/2022 Start: 07-15-2022 End: 05-20-2023 Lactate dehydrogenase [Enzymatic activity/volume] in Serum or Plasma LD LACTATE DEHYDRO Lab Routine High total serum IgM Expected: 07/15/2022 (Approximate), Expires: 05/20/2023 [facility] Work Phone: Comment on above: Expected: 07/15/2022 (Approximate), Expires: 05/20/2023 Start: 07-15-2022 End: 05-20-2023 MONOCLONAL PROTEIN, SERUM (BLOOD) MONOCLONAL PROTEIN, SERUM (BLOOD) Lab Routine High total serum IgM Expected: 07/15/2022 (Approximate), Expires: 05/20/2023 [facility] Work Phone: Comment on above: Expected: 07/15/2022 (Approximate), Expires: 05/20/2023 Start: 07-15-2022 End: 05-20-2023 Phosphate [Mass/volume] in Serum or Plasma PHOSPHORUS INORGANIC Lab Routine High total serum IgM Expected: 07/15/2022 (Approximate), Expires: 05/20/2023 [facility] Work Phone: Comment on above: Expected: 07/15/2022 (Approximate), Expires: 05/20/2023 Start: 07-15-2022 End: 05-20-2023 PROTEIN ELECTROPHORESIS SERUM W/INTERP PROTEIN ELECTROPHORESIS SERUM W/INTERP Lab Routine High total serum IgM Expected: 07/15/2022 (Approximate), Expires: 05/20/2023 [facility] Work Phone: Comment on above: Expected: 07/15/2022 (Approximate), Expires: 05/20/2023 Start: 07-15-2022 End: 05-20-2023 Urate [Mass/volume] in Serum or Plasma URIC ACID BLOOD Lab Routine High total serum IgM Expected: 07/15/2022 (Approximate), Expires: 05/20/2023 [facility] Work Phone: Comment on above: Expected: 07/15/2022 (Approximate), Expires: 05/20/2023 Start: 06-05-2022 End: 03-05-2023 25-hydroxyvitamin D3 [Mass/volume] in Serum or Plasma VITAMIN D 25 HYDROXY Lab Routine Vitamin D deficiency Expected: 06/05/2022 (Approximate), Expires: 03/05/2023 [facility] Work Phone: Comment on above: Expected: 06/05/2022 (Approximate), Expires: 03/05/2023 Start: 06-05-2022 End: 03-05-2023 C reactive protein [Mass/volume] in Serum or Plasma C-REACTIVE PROTEIN (CRP) Lab Routine Elevated sed rate Elevated C-reactive protein (CRP) Expected: 06/05/2022 (Approximate), Expires: 03/05/2023 [facility] Work Phone: Comment on above: Expected: 06/05/2022 (Approximate), Expires: 03/05/2023 Start: 06-05-2022 End: 03-05-2023 Cobalamin (Vitamin B12) [Mass/volume] in Serum or Plasma VITAMIN B12 BLOOD Lab Routine Vitamin B12 deficiency Expected: 06/05/2022 (Approximate), Expires: 03/05/2023 [facility] Work Phone: Comment on above: Expected: 06/05/2022 (Approximate), Expires: 03/05/2023 Start: 06-05-2022 End: 03-05-2023 Erythrocyte sedimentation rate SED RATE WESTERGREN Lab Routine Elevated sed rate Elevated C-reactive protein (CRP) Expected: 06/05/2022 (Approximate), Expires: 03/05/2023 [facility] Work Phone: Comment on above: Expected: 06/05/2022 (Approximate), Expires: 03/05/2023 Start: 05-06-2022 End: 03-18-2023 [id number] [Mass/volume] in Serum or Plasma B2 MICROGLOBULIN B Lab Routine Megaloblastic anemia due to vitamin B12 deficiency High total serum IgM Expected: 05/06/2022 (Approximate), Expires: 03/18/2023 [facility] Work Phone: Comment on above: Expected: 05/06/2022 (Approximate), Expires: 03/18/2023 Start: 05-06-2022 End: 03-18-2023 Calcium.ionized [Moles/volume] in Blood CALCIUM IONIZED BLOOD Lab Routine Megaloblastic anemia due to vitamin B12 deficiency High total serum IgM Expected: 05/06/2022 (Approximate), Expires: 03/18/2023 [facility] Work Phone: Comment on above: Expected: 05/06/2022 (Approximate), Expires: 03/18/2023 Start: 05-06-2022 End: 03-18-2023 CBC W Auto Differential panel - Blood CBC + DIFF Lab Routine Megaloblastic anemia due to vitamin B12 deficiency High total serum IgM Expected: 05/06/2022 (Approximate), Expires: 03/18/2023 [facility] Work Phone: Comment on above: Expected: 05/06/2022 (Approximate), Expires: 03/18/2023 Start: 05-06-2022 End: 03-18-2023 Comprehensive metabolic 2000 panel - Serum or Plasma COMP METABOLIC PANEL Lab Routine Megaloblastic anemia due to vitamin B12 deficiency High total serum IgM Expected: 05/06/2022 (Approximate), Expires: 03/18/2023 [facility] Work Phone: Comment on above: Expected: 05/06/2022 (Approximate), Expires: 03/18/2023 Start: 05-06-2022 End: 03-18-2023 Ferritin [Mass/volume] in Serum or Plasma FERRITIN BLD Lab Routine Megaloblastic anemia due to vitamin B12 deficiency High total serum IgM Expected: 05/06/2022 (Approximate), Expires: 03/18/2023 [facility] Work Phone: Comment on above: Expected: 05/06/2022 (Approximate), Expires: 03/18/2023 Start: 05-06-2022 End: 03-18-2023 Iron and Iron binding capacity panel - Serum or Plasma IRON + TIBC Lab Routine Megaloblastic anemia due to vitamin B12 deficiency High total serum IgM Expected: 05/06/2022 (Approximate), Expires: 03/18/2023 [facility] Work Phone: Comment on above: Expected: 05/06/2022 (Approximate), Expires: 03/18/2023 Start: 05-06-2022 End: 03-18-2023 Lactate dehydrogenase [Enzymatic activity/volume] in Serum or Plasma LD LACTATE DEHYDRO Lab Routine Megaloblastic anemia due to vitamin B12 deficiency High total serum IgM Expected: 05/06/2022 (Approximate), Expires: 03/18/2023 [facility] Work Phone: Comment on above: Expected: 05/06/2022 (Approximate), Expires: 03/18/2023 Start: 05-06-2022 End: 03-18-2023 MONOCLONAL PROTEIN, SERUM (BLOOD) MONOCLONAL PROTEIN, SERUM (BLOOD) Lab Routine Megaloblastic anemia due to vitamin B12 deficiency High total serum IgM Expected: 05/06/2022 (Approximate), Expires: 03/18/2023 [facility] Work Phone: Comment on above: Expected: 05/06/2022 (Approximate), Expires: 03/18/2023 Start: 05-06-2022 End: 03-18-2023 Phosphate [Mass/volume] in Serum or Plasma PHOSPHORUS INORGANIC Lab Routine Megaloblastic anemia due to vitamin B12 deficiency High total serum IgM Expected: 05/06/2022 (Approximate), Expires: 03/18/2023 [facility] Work Phone: Comment on above: Expected: 05/06/2022 (Approximate), Expires: 03/18/2023 Start: 05-06-2022 End: 03-18-2023 PROTEIN ELECTROPHORESIS SERUM W/INTERP PROTEIN ELECTROPHORESIS SERUM W/INTERP Lab Routine Megaloblastic anemia due to vitamin B12 deficiency High total serum IgM Expected: 05/06/2022 (Approximate), Expires: 03/18/2023 [facility] Work Phone: Comment on above: Expected: 05/06/2022 (Approximate), Expires: 03/18/2023 Start: 05-06-2022 End: 03-18-2023 Urate [Mass/volume] in Serum or Plasma URIC ACID BLOOD Lab Routine Megaloblastic anemia due to vitamin B12 deficiency High total serum IgM Expected: 05/06/2022 (Approximate), Expires: 03/18/2023 [facility] Work Phone: Comment on above: Expected: 05/06/2022 (Approximate), Expires: 03/18/2023 Start: 04-05-2022 COVID-19 VACCINE (5 - Pfizer risk series) COVID-19 VACCINE (5 - Pfizer risk series) [facility] Start: 03-09-2022 End: 05-09-2022 Hemoglobin A1c in Blood HGB A1C Lab Routine Elevated glucose Expected: 03/09/2022, Expires: 05/09/2022 [facility] Work Phone: Comment on above: Expected: 03/09/2022 , Expires: 05/09/2022 Start: 02-24-2022 End: 04-26-2022 BARTONELLA AB PANEL BARTONELLA AB PANEL Lab Routine Swelling of lymph nodes Expected: 02/24/2022, Expires: 04/26/2022 [facility] Work Phone: Comment on above: Expected: 02/24/2022 , Expires: 04/26/2022 Start: 02-24-2022 End: 04-26-2022 BRUCELLA AB TOTAL BRUCELLA AB TOTAL Lab Routine Swelling of lymph nodes Expected: 02/24/2022, Expires: 04/26/2022 [facility] Work Phone: Comment on above: Expected: 02/24/2022 , Expires: 04/26/2022 Start: 02-24-2022 End: 04-26-2022 Cryptococcus sp Ag [Presence] in Unspecified specimen by Latex agglutination CRYPTOCOCCUS AG DET Microbiology Routine Swelling of lymph nodes Expected: 02/24/2022, Expires: 04/26/2022 [facility] Work Phone: Comment on above: Expected: 02/24/2022 , Expires: 04/26/2022 Start: 02-24-2022 End: 04-26-2022 HISTOPLASMA AG URINE HISTOPLASMA AG URINE Lab Routine Swelling of lymph nodes Expected: 02/24/2022, Expires: 04/26/2022 [facility] Work Phone: Comment on above: Expected: 02/24/2022 , Expires: 04/26/2022 Start: 02-24-2022 End: 04-26-2022 HIV 1 RNA [#/volume] (viral load) in Serum or Plasma by YESSI with probe detection HIV RNA VIRAL LOAD Lab Routine Swelling of lymph nodes Expected: 02/24/2022, Expires: 04/26/2022 [facility] Work Phone: Comment on above: Expected: 02/24/2022 , Expires: 04/26/2022 Start: 02-24-2022 End: 04-26-2022 SYPHILIS TOTAL W/REFLEX SYPHILIS TOTAL W/REFLEX Lab Routine Swelling of lymph nodes Expected: 02/24/2022, Expires: 04/26/2022 [facility] Work Phone: Comment on above: Expected: 02/24/2022 , Expires: 04/26/2022 Start: 01-22-2022 Influenza vaccination C [facility] Start: 08-24-2021 COVID-19 VACCINE (4 - Booster for Pfizer series) COVID-19 VACCINE (4 - Booster for Pfizer series) [facility] Start: 01-22-2021 Influenza vaccination Flu vacc ine (Season Ended) [facility] Work Phone: Start: 2020 Lipid panel Lipid screen [facility] Work Phone: Start: 2020 Mammography [facility] Start: 2020 Screening for malign ant neoplasm of breast [facility] Start: 2010 HPV TESTING HPV TESTING [facility] Start: 2010 Screening for malign ant neoplasm of cervix HPV Testing [facility] Start: 2002 DTaP/Tdap/Td Vaccine s (1 - Tdap) DTaP/Tdap/Td Vaccines (1 - Tdap) [facility] Start: 2001 PAP TESTING PAP TESTING [facility] Start: 2001 Screening for malign ant neoplasm of cervix [facility] Start: 10-05-1999 DTaP/Tdap/Td vaccine (1 - Tdap) DTaP/Tdap/Td vaccine (1 - Tdap) [facility] Work Phone: Start: 10-05-1999 SHINGRIX VACCINE (1 of 2) SHINGRIX VACCINE (1 of 2) [facility] Start: 10-05-1999 Urine microalbumin profile [facility] Start: 10-05-1999 Zoster Vaccines (1 of 2) Zoster Vacc aston (1 of 2) [facility] Start: 1998 Hepatitis C screening Hepatitis C [facility] Start: 1998 HIV SCREENING HIV SCREENING [facility] Start: 1998 HIV screening HIV Screening [facility] Start: 10-05-1995 HIV screening HIV screen [facility] Work Phone: Start: 1992 COVID-19 Vaccine (1) COVID-19 Vaccin e (1) [employer] Phone: Start: 1986 PNEUMOCOCCAL (1 - PCV) PNEUMOCOCCAL (1 - PCV) [facility] Start: 1986 Pneumococcal vaccination [facility] Start: 1986 Pneumococcal Vaccine : Pediatrics (0 to 5 Years) and At-Risk Patients (6 to 64 Years) (1 - PCV) Pneumococcal Vaccine: Pediatrics (0 to 5 Years) and At-Risk Patients (6 to 64 Years) (1 - PCV) [facility] Start: 1981 MMR Vaccines (1 of 1 - Standard series) MMR Vaccines (1 of 1 - Standard series) [facility] Start: 1981 Varicella vaccination Varicell a Vaccines (1 of 2 - 2-dose childhood series) [facility] Start: 1981 Varicella vaccine (1 of 2 - 2-dose childhood series) Varicella vaccine (1 of 2 - 2-dose childhood series) [facility] Start: 1980 HEPATITIS B (1 of 3 - 3-dose series) HEPATITIS B (1 of 3 - 3-dose series) [facility] Start: 1980 Hepatitis B Vaccine (1 of 3 - 3-dose series) Hepatitis B Vaccine (1 of 3 - 3-dose series) [facility] Start: 1980 Hepatitis B Vaccines (1 of 3 - 3-dose series) Hepatitis B Vaccines (1 of 3 - 3-dose series) [facility] Start: 1980 Hepatitis C screening Hepatitis C sc thuy [employer] Phone: Start: 1980 HIV screening HIV Screening [facility] Start: 1980 Lipid panel Lipid Panel [facility] Start: 1980 Screening for osteoporosis Bone Density Scan [facility] Start: 1980 Yearly Adult Physical Yearly Adult P hysical [facility] Cardiovascular funct ion eval w/tilt table w/mntr TILT TABLE EVALUATION Cardiology Routine POTS (postural orthostatic tachycardia syndrome) Ordered: 03/09/2022 [facility] Work Phone: Comment on above: Ordered: 03/09/2022 End: 03-05-2024 DXA-AXIAL SKELETON DXA-AXIAL SKELETON Radiology Routine Steroid-induced osteoporosis 1 Occurrences starting 02/04/2023 until 03/05/2024 [facility] Work Phone: Comment on above: 1 Occurrences starti ng 02/04/2023 until 03/05/2024 End: 03-05-2024 DXA-FOREARM SKELETON DXA-FOREARM SKELETON Radiology Routine Steroid-induced osteoporosis 1 Occurrences starting 02/04/2023 until 03/05/2024 [facility] Work Phone: Comment on above: 1 Occurrences starti ng 02/04/2023 until 03/05/2024 ECG 12 Lead ECG 12 Lead ECG Routine Irregular heart rate 06/09/2023 8:28 AM EST [facility] Work Phone: End: 03-09-2023 HOME SLEEP APNEA TEST (HSAT) HOME SLEEP APNEA TEST (HSAT) Procedures Routine Somnolence, daytime Snoring 1 Occurrences starting 03/09/2022 until 03/09/2023 [facility] Work Phone: Comment on above: 1 Occurrences starti ng 03/09/2022 until 03/09/2023 Oxygen therapy [[facility] Data Set] Initiate Oxygen Therapy Protocol Respiratory Care Routine Daily until discontinued starting 10/07/2020 [facility] Work Phone: Comment on above: Daily until disconti nued starting 10/07/2020 End: 03-04-2023 Polysomnogram POLYSOMNOGRAM (PSG) Procedures Routine Somnolence, daytime Snoring 1 Occurrences starting 03/04/2022 until 03/04/2023 [facility] Work Phone: Comment on above: 1 Occurrences starti ng 03/04/2022 until 03/04/2023 [facility] Immunizations Immunization Date Immunization Notes Care Provider Fa cility 02-23-2023 COVID-19 vaccine, ag e 12+ yr, 2022- season (PFIZER-BIONTECH) Lynne Ni MD Work Phone: [facility] Payers Date Payer Category Payer Self-pay 2017 Unknown [employer] [id number] 2017-Present [address] [place] [address] [id number] 2009 Medicaid [employer] [id number] 2009-Present [phone] [address] [place] [address] Medicaid [id number] 2009 Medicaid [id number] 1980 Unknown [id number] 1980 Unknown [id number] [id number] 1980 Unknown [id number] [id number] 1980 Unknown [id number] [id number] 1980 Unknown [id number] [id number] 1980 Unknown [id number] [id number] 1980 Unknown [id number] [id number] 1980 Unknown [id number] [id number] 1980 Unknown [id number] [id number] 1980 Unknown [id number] [id number] 1980 Unknown [id number] [id number] 1980 Unknown [id number] [id number] 1980 Unknown [id number] [id number] 1980 Unknown [id number] [id number] 1980 Unknown [id number] [id number] 1980 Unknown [id number] [id number] 1980 Unknown [id number] [id number] 1959 Unknown [id number] 1959 Unknown [id number] Unknown [id number] Social History Date Type Detail Facility Start: 10-07-2020 End: 06-09-2023 Tobacco smoking status COIS Current every day smoker [facility] Start: 10-07-2020 End: 06-09-2023 Tobacco use and exposure Never used [facility] Start: 10-07-2020 Alcohol intake Lifetime non-d claudia (finding) [facility] Work Phone: Start: 10-07-2020 History SDOH Alcohol Frequency 1 [employer] Phone: Start: 1980 Sex Assigned At Not on file [facility] Phone: Start: 02-22-2022 End: 06-09-2023 Exposure to SARS-CoV-2 (event) Not sure [facility] History of tobacco use Cigarette Smoker C [facility] Start: 05-31-2014 End: 06-09-2023 Cigarettes smoked current (pack per day) - Reported 1 [facility] Start: 10-24-2021 End: 04-26-2023 Alcohol intake Current non-drinker of alcohol (finding) [facility] Start: 10-14-2021 End: 10-24-2021 Exposure to SARS-CoV-2 (event) Unable to assess [facility] Start: 10-22-2022 End: 06-09-2023 Sex Assigned At [facility] Adult Depression Screening Assessment 1 [facility] Clinical Notes 05-31-2014 to 06-15-2023 Michelle Britton APRN-[employer] - 06/09/2023 8:30 AM ESTPatient InstructionsChristie Phan MD - 05/26/2023 5:00 PM ESTTelephone Encounter - Renate Lawrence MA - 04/26/2023 5:26 PM ESTPatient Instructions Note Date & Type Note [facility] 06-15-2023 Note [facility] 06-10-2023 Note [facility] 06-09-2023 History of Presen t illness Narrative Jones Haley is a 42 y.o. female that presents to the office today for new patient evaluation as self referral for palpitations and elevated heart rates. She has a PMH of HTN, HLD, tachycardia, anemia, JOSE RAFAEL with CPAP compliance, lupus, autonomic dysfunction, arthritis, chronic back pain. She has undergone cardiac workup in the past in [place] as noted below. She also states that she follows with Neurology for possible POTS syndrome. Admits to daily tobacco use, 1 pack of cigarettes per day. Denies vaping, ETOH, recreational drugs. Admits to drinking approximately 1 pot of coffee per day. Denies daily exercise. 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 Family history [...] , Rfl: ergocalciferol (Vitamin D-2) 1.25 MG (95570 UT) capsule, Take 1 capsule (50,000 Units) [...] Anemia, unspecified Anxiety Autonomic dysfunction Depression, recurrent ([facility]/HCC) Discoid lupus erythematosus Chronic bilateral low back pain with bilateral sciatica Hyperlipidemia Obesity, Class III, BMI 40-49.9 (morbid obesity) (CMS/[facility]) Obstructive sleep apnea syndrome Arthritis Tachycardia Vitamin [...] prepare this document. documented in this encounter [facility] Work Phone: 06-01-2023 Note [facility] 05-26-2023 Note [facility] 05-26-2023 Instructions Christie Phan MD - 05/26/2023 5:43 PM EST Images from the original note were not included. https://Revalesio/emmau-bolgayese/ https://nutritionstudies.org/ho n-ee-tzzycolyb-zztaimkj-wz-wuql k-i-fcyay-mfhz-gydxh-xbfsg-life style/ https://www.Netlist.c om/blog/plantbasedkids https://Wantreez Music/p hbtm-lasys-zbhk-for-kids/ https://Cityzenith.YouFetch/how-t k-vlwsmuklqm-agho-zhks-te-e-arndee sa-zsrnt-gbeq/ WHAT TO EAT? Breakfast: Overnight Oats Base ingredients: 1/3 cup rolled oats, 1/3 cup plain almond milk, 1tsp kyle seeds. Optional add-ins: cinnamon, flax seeds, honey or maple syrup, nut butter, chopped nuts. Toppings: Any fresh fruit chopped. Mix together and place in refrigerator. Can make 5 at a time for the whole week. Homemade fresh oatmeal. Can also make in the crockpot. Maldivian muffin/almond butter topped with fresh berries Maldivian muffin, cooked egg/egg white, tomato, thin slice tajik cheese Fresh berries, hard boiled egg, whole wheat toast Plain yogurt topped with berries, unsalted nuts, drizzle of honey Whole grain toast/Maldivian muffin topped with mashed avocado and tomatoes Lunch: Dinner leftovers packed in Tupperware, side of fruit Salad mixture topped with a protein (chick breast/tuna/hard boiled egg/beans), dressing and side of fruit Dinner - Refer to plate business planner pictures to help select foods and portion ratios of protein, vegetables/starches. Keep it simple and rotate your favorite meals. Sheet nix meals Soups Grilled protein/vegetables/side of starch (plate business planner picture) Stir can with protein, mixed vegetables, and riced cauliflower or portion controlled whole grain rice. Make your own bowls - Bulgarian/Peruvian/ theme [place] with Zoodles (spiralized vegetable noodles). Roasted vegetable wraps Alter traditional recipes to reflect HIGH QUALITY ingredients in the right QUANTITIES. Snacks - portion controlled: Raw veggies (can have with hummus, mashed avocado, salsa). Unsalted nuts Fruit (1 serving). (optional side of peanut butter) Air pop popcorn [place] and low fat tajik cheese rolled up String cheese Protein balls (mix rolled oats, nut butter, flax seeds, dash almond milk). Beverages: Water Coffee, Hot tea Unsweetened ice tea EATING OUT: Research menu online, include nutritional information. Make your order decision before getting to restaurant. Stick to recommended portions (plate business planner picture). Ask for substitutions or modifications. [...] baked potato, sprouted grain bread, chick peas https://www.MobiClub/[place] leopoldo/9787852/mediterranean-diet- mgzj-ivr-zittxtykp/ https://www.MobiClub/Ombitron/4274/qkubezvbbrksc-tfek-df nter/ https://www.MobiClub/Ombitron/4300/bnpxivfljglou-sifr-gd al-plans/ My current favorite cookbooks are documented in this encounter [facility] 05-26-2023 History of Presen t illness Narrative Images from the original note were not included. [facility] Follow-Up Appointment [...] the date of the service which included wnai-kl-yxru patient care, completing clinical documentation, performing a medically appropriate examination, counseling and educating the patient/family/caregiver, and ordering medications, tests, or procedures. Christie Phan MD, MA, [facility] Lifestyle Medicine Specialist documented in this encounter [facility] 05-19-2023 Note [facility] 04-26-2023 Note [facility] 04-26-2023 Miscellaneous Notes Medication pending with new pharmacy information. documented in this encounter [facility] 04-26-2023 History of Presen t illness Narrative Images from the original note were not included. [facility] Virtual Follow-Up [...] the date of the service which included cjxu-ta-nuga patient care, completing clinical documentation, performing a medically appropriate examination, counseling and educating the patient/family/caregiver, and ordering medications, tests, or procedures. I have communicated my name and active licensure. The patient's identity and physical location were verified at the time of this visit. Either the patient or their legal fraud representative has been informed of the risks and benefits of -- and alternatives to -- treatment through a remote evaluation and consents to proceed with the evaluation remotely. Christie Phan MD, MA, [facility] Lifestyle Medicine Specialist documented in this encounter [facility] 04-26-2023 Note [facility] 04-26-2023 Nurse Note Spoke to Jones Haley, confirmed patient is registered on ALOHA and is prepared for their appointment. Confirmed the patient has updated medications, allergies, and questionnaires via ALOHA. Informed patient if there is an issue with the connection, provider will send the patient a secure link. If provider is running late, patient should remain connected to the visit. Patient verbalized understanding. documented in this encounter [facility] 04-22-2023 Miscellaneous Notes Pt called for Iron results; possible need for transfusion. Pt aware no need for iron infusion at this time. Enma Hamm RN documented in this encounter [facility] 04-16-2023 Note [facility] 04-16-2023 Note HNO ID: [id number] Author: Kenzie Shannon Service: ? Author Type: ? Type: Progress Notes Filed: 04/16/2023 11:10 AM Note Text: Patient Identification confirmed: yes. Injection given and documented on JUL per provider order. Kenzie Shannon [facility] 04-16-2023 History of Presen t illness Narrative Patient Identification confirmed: yes. Injection given and documented on MAR per provider order. Kenzie Shannon documented in this encounter [facility] 04-01-2023 Note [facility] 03-19-2023 Note HNO ID: [id number] Author: Kenzie Shannon Service: ? Author Type: ? Type: Progress Notes Filed: 03/19/2023 11:22 AM Note Text: Patient Identification confirmed: yes. Injection given and documented on MAR per provider order. Kenzie Shannon [facility] 03-19-2023 History of Presen t illness Narrative Patient Identification confirmed: yes. Injection given and documented on MAR per provider order. Kenzie Shannon documented in this encounter [facility] 03-16-2023 Note [facility] 03-16-2023 History of Presen t illness Narrative CMN RECEIVED BY [employer] VIA FAX, COMPLETED, AND PLACED IN PROVIDER MAILBOX FOR SIGNATURE On March 16, 2023 By Marija Ziegler [employer]. [place] SENDING CMN: JOSH SIGNED AND DATED CMN, FAXED TO [employer] & CONFIRMATION PAGE RECEIVED: 03.24.23 documented in this encounter [facility] 03-11-2023 Note [facility] 03-11-2023 History of Presen t illness Narrative [...] In Department: RHEUMATOLOGY documented in this encounter [facility] 03-10-2023 Miscellaneous Notes Spoke with patient. We stopped her trulicity because of side effects. She only took the cymbalta for a week. She will restart and we will see how she is doing in 2 months. Have also ordered insulin labs to check for insulin resistance. documented in this encounter [facility] 03-01-2023 Miscellaneous Notes For chart: Eye exam 02/26/23 no ocular complication related to medication. Received eye exam from [facility] Placed on your desk for review. documented in this encounter [facility] 02-19-2023 Note [facility] 02-19-2023 Nurse Note Patient Identification confirmed: yes. Injection given and documented on JUL per provider order. Radha Schofield MA documented in this encounter [facility] 02-19-2023 Instructions Jose Najera MD - 02/19/2023 11:40 AM EDT B12 shot today and every 4 weeks. Continue Folic acid. Follow up in 8 Weeks - labs 1 week before. documented in this encounter [facility] 02-19-2023 History of Presen t illness Narrative Images from the original note were not included. AMBULATORY TELEPHONE VISIT Jones Haley has consented to this telephone encounter. Persons Present: Patient and myself Chief Complaint/Reason: Anemia; To review recent blood work. HPI: Total Time Spent: 21 minutes Wilmer Driver APRN.OLD COIN DEALER NAME: Jones Haley CLINIC NO.: [id number] DATE OF SERVICE: February 19, 2023 ([facility]) [...] lower lip done 2 days ago at [facility] - awaiting results. B12 helps especially [...] She follows with multiple doctors including and cloth shrinking supervisor, power tool repairer, helium arc welder and PCP. She has been told they [...] which included preparing to see the patient, xepu-oo-kzbb patient care, completing clinical documentation, performing a medically appropriate examination, counseling and educating the patient/family/caregiver, ordering medications, tests, or procedures, and independently interpreting results (not separately reported). Jose Najera MD, CPE Hematology and Oncology Services Provided at: [place], [place] CC: Madelaine Ferris MD [address] [address] documented in this encounter [facility] 02-16-2023 Miscellaneous Notes Notify patient medication sent [...] RAYRAY INJECTION TEACHING 03/11/2023 7:30 AM RHEU [facility] ME[facility] VIDEO SPEC EST 08/12/2023 9:00 AM [facility] Last Ophthalmology Check for Plaquenil (Hydroxychloroquine) [...] Vitamin D deficiency documented in this encounter [facility] 02-08-2023 Miscellaneous Notes Spoke with patient Will get labs done when she does labs in Dec for Dre/Onc Mailed orders for DXA to pt so she can go to [facility] Pre cert Ben[place]st Scheduled Teaching visit for 4 weeks out to give time for ins and to receive medication. Will edison if not auth or received Scheduled [address] Ni in 6 mo Mirela Carlos February 08, 2023 11:15 AM Please call and schedule nonfasting labs 04/2023 Due for bone mineral density (1st time) patient requests order for [place] Please schedule follow up office visit for [...] Lynne Ni MD documented in this encounter [facility] 02-04-2023 Note [facility] 02-04-2023 Note [facility] 02-04-2023 Note [facility] 02-04-2023 Note [facility] 02-04-2023 Note [facility] 02-04-2023 History of Presen t illness Narrative [facility] received prescription(s) for Benlysta from Dr. Ni. Benefits investigation was conducted, indicating that a prior authorization is required by patients plan with [facility]. Encounter will be updated once prior authorization has been submitted by [facility]. Carlene Rendon CPhT [facility], Inflammatory P: [phone] F: [phone] documented in this encounter [facility] 02-04-2023 History of Presen t [...] visit. Either the patient or their legal fraud representative has been informed of the risks [...] neurology/on metoprolol for POTs, avoid aggravating triggers, skilled nursing pain recommendations per primary care provider/pain clinic/patient [...] Due for eye exam. Labs sent to [facility]/completed in 06/2021 (no results faxed to office, but patient pulled up results on her phone). Chronic current pain in neck, flank area, mid back, knees, legs, arms, all over pain. Better with lyrica 75mg 3times a day. Reports pain 4-12/31. Couple hrs AM stiffness. COVID vaccine W4 09/28/20, 10/19/20, 05/26/21. Feels safe at home. 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 RECOMMENDATION/PLAN: [facility] Second Half Playbook on 02/04/23 DXA-AXIAL SKELETON DXA-FOREARM SKELETON Reviewed [...] (200mg) daily with a meal Please see call center operator every 6-12months while on Hydroxychloroquine. Start 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 [...] touching your toes, sit-ups, using row machine terminal computer operator pain recommendations per primary care provider/pain clinic [...] video & audio (virtual) or phone or xsom-dr-ejat patient care, completing clinical documentation, obtaining and/or [...] by letter/electronic shared medical records. cc Gay Ecniso CNP;Dr.Douglas Sai Ferris MD [facility] AMBULATORY VISIT INTAKE QUESTIONNAIRE Question 02/02/2023 [...] Medication Reposition Cold Heat Positioning Comments [facility] Question 02/02/2023 10:32 PM EDT - Filed by Patient Is this visit related to an accident, other than Workers' Compensation? No Is this visit related to Workers' Compensation? No Do you need an foreign language interpreter? No [facility] MYCHART ZOOM MESSAGE Question 02/02/2023 10:32 [...] or = 5) documented in this encounter [facility] 02-04-2023 Instructions Lynne Ni MD - 02/04/2023 [...] (200mg) daily with a meal Please see call center operator every 6-12months while on Hydroxychloroquine. 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 daily [...] touching your toes, sit-ups, using row machine terminal computer operator pain recommendations per primary care provider/pain clinic [...] usual activities immediately. documented in this encounter [facility] 01-26-2023 Miscellaneous Notes patient has viewed the [employer] message per [facility] [facility]. Please Call patient if ALOHA note not read to review results/released to My Chart if tests completed at [facility]: mildly high normal wbc- will monitor. Mildly [...] Lynne Ni MD documented in this encounter [facility] 01-22-2023 Nurse Note Patient Identification confirmed: yes. Injection given and documented on JUL per provider order. Radha Schofield MA documented in this encounter [facility] 01-12-2023 Miscellaneous Notes Patient needs appointment before I can refill. Patient's request for medication is as follows: Requested Prescriptions Pending Prescriptions Disp Refills dulaglutide (TRULICITY) 1.5 mg/0.5 mL pen injector 2 mL 0 Sig: Inject 1.5 mg subcutaneously one time a week. Please approve the above prescription(s) to electronically send to [facility] pharmacy. Milagro Mendiola MA documented in this encounter [facility] 01-01-2023 Note [facility] 01-01-2023 History of Presen t illness Narrative VIRTUAL VISIT PROGRESS NOTE This is a virtual visit using ALOHA video visit. It required patient-provider interaction for the medical decision making as documented below. I have communicated my name and active licensure. The patient's identity and physical location were verified at the time of this visit. Either the patient or their legal fraud representative has been informed of the risks [...] otitis or sinusitis No pneumonia She sees power tool repairer and was diagnosed with lupus She is on Plaquenil, 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 Prednisone 10mg once daily for the past year; every few months she gets treated with higher doses of prednisone for flares of her symptoms The medications seem to help the body aches She saw the day porter Treated with B12 and folic acid We [...] Misty Nelson MD documented in this encounter [facility] 12-18-2022 Note [facility] 12-18-2022 Miscellaneous Notes Spoke with patient this morning, 12/18/2022. Wilmer Driver APRN.TRUE Pt called concrete stone fabricator service last evening stating she was suppose to have a phone call with Wilmer at 330 and never received a call. Pt is still waiting (536 pm 12/17/22). Please advise Lidia Argueta RN documented in this encounter [facility] 12-18-2022 History of Presen t illness Narrative [...] Total Time Spent: 21 minutes Wilmer Driver APRN.OLD COIN DEALER NAME: Jose Carlosfrancisco javierJones CLINIC NO.: [id number] DATE OF SERVICE: October 22, 2022 ([facility]) [...] lower lip done 2 days ago at [facility] - awaiting results. B12 helps especially [...] She follows with multiple doctors including and cloth shrinking supervisor, power tool repairer, helium arc welder and PCP. She has been told they [...] ECOG PERFORMANCE STATUS: 0 PHYSICAL EXAMINATION: Vitals: [facility] 02/26/2022 There is no height or [...] which included preparing to see the patient, pgnv-ua-nnsg patient care, completing clinical documentation, performing a medically appropriate examination, counseling and educating the patient/family/caregiver, ordering medications, tests, or procedures, and independently interpreting results (not separately reported). Jose Najera MD, CPE Hematology and Oncology Services Provided at: [place], [place] CC: Madelaine Ferris MD [facility] [address] documented in this encounter [facility] 12-16-2022 Miscellaneous Notes Pt notified and verbalizes understanding. Clerical: Please change tomorrow's appointment to a phone visit at the end of Wilmer's day. Preferred number is [phone]. In addition, pt will be in next 12/25/22 @ 1130 for her B12 shot. Please add her to the MA schedule. Thanks! Pamella Bettencourt, RN That would be okay. Have her added at the end of the day. Thanks, Wilmer Driver APRN.OLD COIN DEALER Pt is scheduled for w/ Wilmer & B12 tomorrow. She would like to make this a telephone appointment instead and come back next week for B12. Pt had her labs drawn last week. Wilmer: Any objections to meeting w/ pt over the phone tomorrow or would you prefer we switch her to Mason's schedule? Pamella Bettencourt RN documented in this encounter [facility] 12-13-2022 Miscellaneous Notes No clinical utility or [...] Enma Hamm RN documented in this encounter [facility] 11-24-2022 Miscellaneous Notes Please call patient Thank [...] Lynne Ni MD documented in this encounter [facility] 11-19-2022 Nurse Note Patient Identification confirmed: yes. Injection given and documented on JUL per provider order. Margret Cuenca documented in this encounter [facility] 10-29-2022 Note [facility] 10-22-2022 Note [facility] 10-22-2022 Nurse Note Patient Identification confirmed: yes. Injection given and documented on JUL per provider order. Stacy Gutiérrez Ma documented in this encounter [facility] 10-22-2022 Instructions Jose Najera MD - 10/22/2022 11:43 AM EDT B12 Shot today and every 4 weeks. Continue Folic acid. Follow up in 8 Weeks - labs 1 week before. documented in this encounter [facility] 10-22-2022 History of Presen t illness Narrative Images from the original note were not included. NAME: Jones Haley CLINIC NO.: [id number] DATE OF SERVICE: October 22, 2022 ([facility]) [...] lower lip done 2 days ago at [facility] - awaiting results. B12 helps especially [...] She follows with multiple doctors including and cloth shrinking supervisor, power tool repairer, helium arc welder and PCP. She has been told they [...] which included preparing to see the patient, pvmu-lk-kxbp patient care, completing clinical documentation, performing a medically appropriate examination, counseling and educating the patient/family/caregiver, ordering medications, tests, or procedures, and independently interpreting results (not separately reported). Jose Najera MD, CPE Hematology and Oncology Services Provided at: [place], [place] CC: Madelaine Ferris MD [address] [facility] [address] documented in this encounter [facility] 09-24-2022 Nurse Note Patient Identification confirmed: yes. Injection given and documented on JUL per provider order. Stacy Gutiérrez Ma documented in this encounter [facility] 09-11-2022 Note HNO ID: [id number] Author: Joselito Joshi Service: ? Author Type: ? Type: Progress Notes Filed: 09/11/2022 9:10 AM Note Text: Called patient and patient stated she will call back and schedule. Joselito Joshi [facility] 09-08-2022 Miscellaneous Notes Pharmacy-Reviewed Medication History Patient Name:.Jones Haley : 1980 Patient Contact Attempt: First attempt Adherence Packing Program Accepted? No, patient does not wish to participate. Patient is not eligible for adherence packaging because PCP is not within [facility]. Patient wishes to continue at [facility] since medication bottles will look the same and then she can pick-up the medications when she needs them. Stacy Hernandez September 08, 2022 2:28 PM [facility] [phone] documented in this encounter [facility] 09-07-2022 Note [facility] 09-07-2022 History of Presen t illness Narrative Images from the original note were not included. [facility] Virtual Follow-Up [...] which included preparing to see the patient, msrc-fs-soly patient care, completing clinical documentation, performing a medically appropriate examination, counseling and educating the patient/family/caregiver, ordering medications, tests, or procedures, and communicating with other HCPs (not separately reported). I have communicated my name and active licensure. The patient's identity and physical location were verified at the time of this visit. Either the patient or their legal fraud representative has been informed of the risks and benefits of -- and alternatives to -- treatment through a remote evaluation and consents to proceed with the evaluation remotely. Christie Phan MD, MA, [facility] Lifestyle Medicine Specialist documented in this encounter [facility] 09-07-2022 Nurse Note Called pt to do intake for video visit pt unavailable lft vm msg sent my chart. Milagro Mendiola MA documented in this encounter [facility] 08-31-2022 Miscellaneous Notes called [facility] pharmacy - pharmacy had 1 refill remaining no action needed from our office documented in this encounter [facility] 08-27-2022 Note [facility] 08-27-2022 Nurse Note Patient Identification confirmed: yes. Injection given and documented on JUL per provider order. Stacy Gutiérrez Ma documented in this encounter [facility] 08-27-2022 History of Presen t illness Narrative Images from the original note were not included. NAME: Jones Haley [facility] NO.: [id number] DATE OF SERVICE: August 27, 2022 (Bob) [...] She follows with multiple doctors including and cloth shrinking supervisor, power tool repairer, helium arc welder and PCP. She has been told they [...] stomach other (Crohn's [Other]) Mother Wilmer Bob, HIGH SCHOOL TUTOR.OLD COIN DEALER Hematology and Oncology Services Provided at: [place], [place] CC: Madelaine Ferris MD [address] [facility] [address] I spent a total of 30 minutes on the date of the service which included preparing to see the patient, khvi-rx-uokp patient care, completing clinical documentation, obtaining and/or reviewing separately obtained history, performing a medically appropriate examination, counseling and educating the patient/family/caregiver, ordering medications, tests, or procedures, independently interpreting results (not separately reported), and communicating results to the patient/family/caregiver. documented in this encounter [facility] 08-19-2022 Miscellaneous Notes -noted MyChart message read by patient 08/19/22 . Last read by Jones Haley at 3:33 PM on 08/19/2022 Please Call patient if MyChart note not read to review results/released to My Chart if tests completed at F: Improved/ mildly high normal inflammatory test- will monitor. Improved/mildly low vitamin b12- take over the counter 8855-3433 mcg daily. Improved/ normal rest of rheum [...] Lynne Ni MD documented in this encounter [facility] 08-18-2022 Miscellaneous Notes MC read by patient. [...] Lynne Ni MD documented in this encounter [facility] 08-10-2022 Miscellaneous Notes [facility] requesting refill, patient never started according to the chart and I have not seen her in follow-up. [facility] Pharmacy request for the following refill(s): Requested Prescriptions Pending Prescriptions Disp Refills DULoxetine (CYMBALTA) 20 mg capsule [Pharmacy Med Name: DULOXETINE HCL DR 20 MG CAP] 30 capsule 2 Sig: TAKE 1 CAPSULE BY MOUTH ONCE DAILY Please review and advise. Jami Everett Cma documented in this encounter [facility] 07-27-2022 Instructions Timmy Heck APRN.OLD COIN DEALER - 07/27/2022 9:12 PM EST Images from the original note were not included. Your most recent body mass index (BMI) that we have on record is 40.56 kg/m2. Obstructive sleep apnea (JOSE RAFAEL) worsens with an increase in weight; reduction in weight may improve or resolve your JOSE RAFAEL. If you are not already seeking treatment, there are resources available at the [facility] such as a nutrition consultation or referral to weight management programs at our [facility]. Please let us know if we can assist with a referral. - Continue CPAP at 5-15 cmH2O. - Remember to clean your mask and equipment regularly, as directed. - You should be eligible for new supplies approximately every 3-6 months, depending on your insurance coverage. Contact your [employer] (DME) company for new supplies. [...] the central scheduling system for the [facility] at [phone]. [facility] now offers direct scheduling for patients to schedule appointments. Virtual visits are also available. If not covered by your insurance, there is a 35% discount. Please contact your insurance to determine coverage. Call the office at [phone], option #5 for questions. documented in this encounter [facility] 07-27-2022 Note [facility] 07-27-2022 History of Presen t illness Narrative Images from the original note were not included. [facility] Virtual Visit Follow up/ [...] will have a prescription sent to a [employer] ([employer]) company - Company who will be calling you in the next 1-2 weeks or so. Please call them directly or us if you do not hear from them in this time frame. - Will request formal mask fitting - You should be eligible for new supplies approximately every 3-6 months, depending on your insurance coverage. - If your mask doesn't fit well, call the [employer] company before 30 days are up to [...] to ensure the best time for you. [facility] on 04/13/22 CONSULT TO SLEEP MEDICINE - ADULT CPAP/BIPAP/OTHER PAP THERAPY ORDER Lawanda Miranda MD Interval history : Here for follow up for sleep apnea management. SLEEP APNEA Sleep apnea type : JOSE RAFAEL Most Recent Apnea-Hypopnea Index (AHI): 5.3 Treatment : PAP therapy DME: Josh Seo DME fax: [phone] DME ph: [phone] PAP History: Current PAP settin-15 cm H2O. [...] or near accidents due to drowsy drivin [place] Sleepiness Scale 04/12/2022 07/23/2022 Score 4 (No [...] tests, or procedures. documented in this encounter [facility] 07-24-2022 Miscellaneous Notes Patient called today. : [...] patient specific tasks. documented in this encounter [facility] 07-22-2022 Miscellaneous Notes [facility] message sent documented in this encounter [facility] 05-20-2022 History of Presen t illness Narrative Patient Identification confirmed: yes. Injection given and documented on JUL per provider order. Kenzie Shannon documented in this encounter [facility] 05-20-2022 Miscellaneous Notes Addended by: JOSE NAJERA on: 05/20/2022 02:27 PM Modules accepted: Orders documented in this encounter [facility] 05-20-2022 Instructions Jose Najera MD - 05/20/2022 2:23 PM EST B12 Shot Today and every 4 weeks Get fit for CPAP mask and setting this 05/28/2021 Continue Folic acid. RTC in 8 Weeks - labs 1 week before. documented in this encounter [facility] 05-20-2022 History of Presen t illness Narrative Images from the original note were not included. NAME: Jones Haley CLINIC NO.: [id number] DATE OF SERVICE: May 20, 2022 ([place]) [...] which included preparing to see the patient, iubr-tt-lhps patient care, completing clinical documentation, performing a medically appropriate examination, counseling and educating the patient/family/caregiver, ordering medications, tests, or procedures, and independently interpreting results (not separately reported). Jose Najera MD, CPE Hematology and Oncology Services Provided at: [place], [place] CC: Jose Najera [address] [place] [address] [place] [address] Madelaine Ferris MD, [address] [place] [address] CC: Madelaine Ferris MD [address] [place], [place] [id number] documented in this encounter [facility] 05-05-2022 Miscellaneous Notes Faxed order, office notes, demographics, and sleep study to: DME name: Josh Seo DME fax: [phone] DME ph: [phone] Confirmation received. documented in this encounter [facility] 05-05-2022 Miscellaneous Notes [employer] message sent documented in this encounter [facility] 05-05-2022 Miscellaneous Notes [facility] received your PAP order. Due to a major [email or web address] recall and manufacturing shortage, we are unable to fulfill the request to provide your patient with a CPAP/BIPAP machine at this time. We will keep the request on file and provide when inventory is available or you can forward the order to another DME provider such as Company, [employer] or [employer]. Caring for our patients is our top priority and we apologize for this delay. Thank you for your patience during this time. [phone] #1 documented in this encounter [facility] 04-24-2022 Miscellaneous Notes After review of Jones's referral, it was determined that the visit needed to be in person to allow for detailed physical exam for connective tissue disorder evaluation. I called today to discuss her concerns about in-person visit for connective tissue disorder evaluation. She did not report hypermobility, however, she noted that her allergy doctor has noted concern for EDS. Her power tool repairer has told her that she has Lupus. Based on her history, I noted we can offer in-person evaluations for herself and/or her son to see if any genetic testing may be useful. I validated and provided support on the difficulty with her ambulation and transport concerns. I noted [facility] does not have other locations and only available at [facility] [place]. I offered social work and/or transport assistance for the visit. She declined this and will discuss with her regarding the transport. She verbalized understanding the reasons for in-person evaluation recommended. She has the [facility] line and will call to reschedule for an in-person evaluation at [facility]. Luann Lance MD Extrusion Die Template Maker, Associate Staff [facility] documented in this encounter [facility] 04-22-2022 Miscellaneous Notes Reached out to Jones [...] copy of the report. Confirmed patient's email [email or web address] Licea Genetic Counselor Telegraph Equipment Maintainer documented in this encounter [facility] 03-31-2022 Miscellaneous Notes [facility] pharmacy electronically requests the following refill(s) Requested Prescriptions Pending Prescriptions Disp Refills DULoxetine (CYMBALTA) 20 mg capsule [Pharmacy Med Name: DULOXETINE HCL DR 20 MG CAP] 30 capsule 2 Sig: TAKE 1 CAPSULE BY MOUTH ONCE DAILY Renate Lawrence MA documented in this encounter [facility] 03-30-2022 Miscellaneous Notes LVM and sent MyChart [...] Misty Nelson MD documented in this encounter [facility] 03-30-2022 Miscellaneous Notes LVM and sent MyChart regarding Dr. Nelson's directive. documented in this encounter [facility] 03-18-2022 Instructions Jose Najera MD - 03/18/2022 11:16 AM EDT Referral for sleep study pending Start on Folic acid. RTC in 8 Weeks - labs 1 week before. documented in this encounter [facility] 03-18-2022 History of Presen t illness Narrative Images from the original note were not included. NAME: Jones Haley CLINIC NO.: [id number] DATE OF SERVICE: March 18, 2022 ([place]) [...] which included preparing to see the patient, hbwh-dy-mztt patient care, completing clinical documentation, performing a medically appropriate examination, counseling and educating the patient/family/caregiver, ordering medications, tests, or procedures, and independently interpreting results (not separately reported). Jose Najera MD, CPE Hematology and Oncology Services Provided at: [place], [place] CC: Madelaine Ferris MD [address] [facility] [address] documented in this encounter [facility] 03-10-2022 History of Presen t illness Narrative VIRTUAL VISIT PROGRESS NOTE This is a virtual visit using ALOHA video visit. It required patient-provider interaction for [...] the HR increases again She sees a business line manager in [place] PCP is running the Holter and echo [...] but was not pursued yet Lives in [place] She did have LN biopsy in the [...] Misty Nelson MD documented in this encounter [facility] 03-09-2022 History of Past i llness Narrative Problem Noted Date Diagnosed Date Resolved Date Obesity, Class II, BMI 35-39.9 03/09/2022 03/10/2023 Obesity (BMI 30-39.9) 05/31/20142016 documented as of this encounter (statuses as of 03/10/2023) [address]2022 History of Past illness Narrative* Problem Noted Date Diagnosed Date Resolved Date Obesity, Class II, BMI 35-39.9 03/09/2022 03/10/2023 Obesity (BMI 30-39.9) 05/31/20142016 documented as of this encounter (statuses as of 03/11/2023) [address]2022 History of Past illness Narrative* Problem Noted Date Diagnosed Date Resolved Date Obesity, Class II, BMI 35-39.9 03/09/2022 03/10/2023 Obesity (BMI 30-39.9) 05/31/20142016 documented as of this encounter (statuses as of 03/19/2023) [address]17-2022 History of Past illness Narrative* Problem Noted Date Diagnosed Date Resolved Date Obesity, Class II, BMI 35-39.9 03/09/2022 03/10/2023 Obesity (BMI 30-39.9) 05/31/20142016 documented as of this encounter (statuses as of 03/24/2023) [address]17-2022 History of Past illness Narrative* Problem Noted Date Diagnosed Date Resolved Date Obesity, Class II, BMI 35-39.9 03/09/2022 03/10/2023 Obesity (BMI 30-39.9) 05/31/20142016 documented as of this encounter (statuses as of 04/16/2023) [address]17-2022 History of Past illness Narrative* Problem Noted Date Diagnosed Date Resolved Date Obesity, Class II, BMI 35-39.9 03/09/2022 03/10/2023 Obesity (BMI 30-39.9) 05/31/20142016 documented as of this encounter (statuses as of 04/23/2023) [address]17-2022 History of Past illness Narrative* Problem Noted Date Diagnosed Date Resolved Date Obesity, Class II, BMI 35-39.9 03/09/2022 03/10/2023 Obesity (BMI 30-39.9) 05/31/20142016 documented as of this encounter (statuses as of 04/27/2023) [facility] History of Past illness Narrative* Problem Noted Date Diagnosed Date Resolved Date Obesity, Class II, BMI 35-39.9 03/09/2022 03/10/2023 Obesity (BMI 30-39.9) 05/31/20142016 documented as of this encounter (statuses as of 04/27/2023) [facility] History of Past illness Narrative* Problem Noted Date Diagnosed Date Resolved Date Obesity, Class II, BMI 35-39.9 03/09/2022 03/10/2023 Obesity (BMI 30-39.9) 05/31/20142016 documented as of this encounter (statuses as of 05/31/2023) [facility]10-17-[facility] Instructions* Patient Instructions* Christie Phan MD - 03/09/2022 12:47 PM EDT Check EKG for prolonged QT. If normal, I would try going back on the Lexapro, can recheck an EKG inabout a month to make sure that things are going ok. (I'm leaving this, but we are changing to Cymbalta) Tilt Table Test [email or web address] documented in this [facility] History of Present illness Narrative* Christie Phan MD - 03/09/2022 12:08 PM EDT Images from the original note were not included. 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 documented in this [facility] Miscellaneous Notes* Telephone Encounter - Krista Braswell [...] accordingly. Lynne Ni MD documented in this encounterC[facility] Instructions* Patient Instructions* Jose Najera MD - 03/04/2022 11:42 AM EDT Labs today. Referral for sleep study. RTC in 2 weeks. Consider immunology referral. Referral to lifestyle medicine documented in this encounterC[facility] History of Present illness Narrative* Jose Najera MD - 03/04/2022 11:19 AM EDT Images from the original note were not included. NAME: Jose Carlosfrancisco javierJones [facility] NO.: [id number] DATE OF SERVICE: March 04, 2022 Referring [...] 2 weeks. Consider immunology referral. Referral to [facility] medicine HPI: CASE HISTORY: Currently [...] which included preparing to see the patient, uuxi-yu-vool patient care, completing clinical documentation, obtaining and/or reviewing separately obtained history, performing a medically appropriate examination, counseling and educating the pat ient/family/caregiver, ordering medications, tests, or procedures, and independently interpreting results (not separately reported). Jose Najera MD, CPE Hematology and Oncology Services Provided at: [place], [place] CC: Madelaine Ferris MD [address] [address] [place], [address] [place], [place] [id number] [facility] History of Present illness Narrative* Tiffany Head DO - 02/24/2022 6:00 PM EDT VIRTUAL VISIT PROGRESS NOTE This is a virtual visit using ALOHA video visit. 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 Review Perform Procedure 06/09/2023 06/08/2024 1 1 * Cardiovascular (Routine) - Authorized Specialty Diagnoses / Procedures Referred By Contac t Referred To Contact Diagnoses Irregular heart rate Procedures ECG 12 Lead Michelle Britton APRN-CNP [address] [facility] [address] [place] [address] Referral ID Status Reason Start Date Expiration Date V isits Requested Visits Authorized [id number] Authorized 06/09/2023 06/08/2024 1 1 [facility] Work Phone: Summary Purpose Family History No Family History Records FoundNo Family History Records FoundNo Family History Records FoundNo Family History Records FoundNo Family History Records FoundNo Family History Records FoundNo Family History Records FoundNo Family History Records FoundNo Family History Records Found Advance Directives No Advanced Directives Records FoundDocuments on File Type Date Recorded 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 Expl anation ACP-Advance Directive ACP-Power of Currency Counter Latest Code Status on File Code Status Date Activated Date Inactivated Comments Full Code 10/07/2020 8:32 AM Documents on File Type Date Recorded 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 Supervisor Expl anation Advance Directive(s) 09/13/2015 8:36 AM Reason for Referral Specialty Diagnoses / Procedures Referred By Contac t Referred To Contact Diagnoses Obesity, Class III, BMI 40-49.9 (morbid obesity) (HCC) Pre-diabetes Christie Phan MD [address] [place] [address] Referral ID Status Reason Start Date Expiration Date Visits Re quested Visits Authorized [id number] Closed 1 1 Specialty Diagnoses / Procedures Referred By Contac t Referred To Contact Diagnoses Wound healing, delayed Procedures CONSULT TO MEDICAL GENETICS - GENERAL OFFICE/OUTPATIENT [facility] 60-74 MINUTES MEDICAL GENETICS COUNSELING EACH 30 MINUTES Misty Nelson MD [facility] [place] [id number] [facility] [place] [address] [place] [id number] Referral ID Status Reason Start Date Expiration Date Visits Requested Visits Authorized [id number] Authorized PCP Requested Referral Auto-Generate d Referral 2 03/10/2023 1 1 Specialty Diagnoses / Procedures Referred By Contac t Referred To Contact Neurology Diagnoses POTS (postural orthostatic tachycardia syndrome) Procedures CONSULT TO NEUROLOGY OFFICE/OUTPATIENT [facility] 60-74 MINUTES Christie Phan MD [address] [place] [address] Referral ID Status Reason Start Date Expiration Date Visits Requested Visits Authorized [id number] Authorized PCP Requested Referral 2 03/12/2023 1 1 Specialty Diagnoses / Procedures Referred By Contac t Referred To Contact Immunology Diagnoses Raised level of immunoglobulins Procedures CONSULT TO IMMUNOLOGY OFFICE/OUTPATIENT [facility] 60-74 MINUTES Christie Phan MD [address] [place] [phone] Referral ID Status Reason Start Date Expiration Date V isits Requested Visits Authorized [id number] Closed PCP Requested Referral 03/09/2022 03/09/2023 1 1 Specialty Diagnoses / Procedures Referred By Contac t Referred To Contact [facility] Diagnoses Somnolence, daytime Snoring Procedures HOME SLEEP APNEA TEST (HSAT) SLEEP STD AIRFLOW HRT RATE&O2 SAT EFFORT UNATT Christie Phan MD [address] [place] [address] Neu[facility] [place] [address] [place] [address] Referral ID Status Reason Start Date Expiration Date Visits Requested Visits Authorized [id number] Authorized Auto-Generat ed Referral 2 03/09/2023 1 1 Specialty Diagnoses / Procedures Referred By Nahid t Referred To Contact Diagnoses Somnolence, daytime Chronic fatigue and malaise Obesity, unspecified classification, unspecified obesity type, unspecified whether serious comorbidity present Procedures CONSULT TO LIFESTYLE MEDICINE MD OFFICE/OUTPATIENT [facility] 60-74 MINUTES Jose Najera MD [address] [place] [address] [place] [address] Referral ID Status Reason Start Date Expiration Date V isits Requested Visits Authorized [id number] Closed PCP Requested Referral 03/04/2022 03/04/2023 1 1 Specialty Diagnoses / Procedures Referred By Nahid t Referred To Contact Diagnoses Somnolence, daytime Snoring Procedures CONSULT TO SLEEP MEDICINE - ADULT OFFICE/OUTPATIENT [facility] 60-74 MINUTES Jose Najera MD [address] [place] [address] [place] [address] Referral ID Status Reason Start Date Expiration Date Visits Requested Visits Authorized [id number] Authorized PCP Requested Referral 2 03/04/2023 1 [...] section and content) DATE CREATED AUTHOR 09/20/2018 [facility] DATE CREATED AUTHOR AUTHOR'S ORGANIZ ATION 09/23/2018 [facility] DATE CREATED AUTHOR AUTHOR'S ORGANIZ ATION 12/10/2018 [facility] DATE CREATED AUTHOR AUTHOR'S ORGANIZ ATION 01/13/2019 [facility] DATE CREATED AUTHOR AUTHOR'S ORGANIZ ATION 06/28/2021 [facility] DATE CREATED AUTHOR AUTHOR'S ORGANIZ ATION 10/01/2022 [facility] DATE CREATED AUTHOR AUTHOR'S ORGANIZ ATION 06/02/2023 [facility] EPIC DATE CREATED AUTHOR AUTHOR'S ORGANIZ ATION 06/10/2023 [facility] DATE CREATED AUTHOR AUTHOR'S ORGANIZ ATION 06/18/2023 [facility] Reason for Visit (unrecogniz ed section and content) Status Reason Specialty Diagnoses / Procedures Referre d By Contact Referred To Contact [facility] Reason Comments Pain ongoing generalized pain. Reason [...] HIGH MDM 60-74 MINUTES Jose Najera MD [address] [place] [address] [place] [address] Referral ID Status Reason Start Date Expiration Date V isits Requested Visits Authorized [id number] Closed PCP Requested Referral 03/04/2022 03/04/2023 1 1 Reason Comments High Total serum IgM Anemia Reason Comments Consult Specialty Diagnoses / Procedures Referred By Contac t Referred To Contact Immunology Diagnoses Raised level of immunoglobulins Procedures CONSULT TO IMMUNOLOGY OFFICE/OUTPATIENT NEW HIGH MDM 60-74 MINUTES Christie Phan MD [address] [place] [id number] Referral ID Status Reason Start Date Expiration Date V isits Requested Visits Authorized [id number] Closed PCP Requested Referral 03/09/2022 03/09/2023 1 1 Reason Comments Pneumovax Reason Comments Refill Request Reason Comments Appointment [employer] - Other Reason Comments Future Appointment Scheduling [...] rate Procedures ECG 12 Lead Michelle Britton, [employer] [address] [facility] [address] [place] [address] Referral ID Status Reason Start Date Expiration Date V isits Requested Visits Authorized [id number] Authorized 06/09/2023 06/08/2024 1 1 Ordered Prescriptions [...] or prosecute any alcohol or drug abuse patient.[facility] the event this information is protected by the Federal Confidentiality of Alcohol and Drug Abuse Patient Records regulations: The Federal rules restrict any use of the information to criminally investigate or prosecute any alcohol or drug abuse patient.[facility] CenterIn the event this information is protected by the Federal Confidentiality of Alcohol and Drug Abuse Patient Records regulations: The Federal rules restrict any use of the information to criminally investigate or prosecute any alcohol or drug abuse patient.[facility] CenterIn the event this information is protected by the Federal Confidentiality of Alcohol and Drug Abuse Patient Records regulations: The Federal rules restrict any use of the information to criminally investigate or prosecute any alcohol or drug abuse patient.[facility] CenterIn the event this information is protected by the Federal Confidentiality of Alcohol and Drug Abuse Patient Records regulations: The Federal rules restrict any use of the information to criminally investigate or prosecute any alcohol or drug abuse patient.[facility] CenterIn the event this information is protected by the Federal Confidentiality of Alcohol and Drug Abuse Patient Records regulations: The Federal rules restrict any use of the information to criminally investigate or prosecute any alcohol or drug abuse patient.[facility] CenterIn the event this information is protected by the Federal Confidentiality of Alcohol and Drug Abuse Patient Records regulations: The Federal rules restrict any use of the information to criminally investigate or prosecute any alcohol or drug abuse patient.[facility] CenterIn the event this information is protected by the Federal Confidentiality of Alcohol and Drug Abuse Patient Records regulations: The Federal rules restrict any use of the information to criminally investigate or prosecute any alcohol or drug abuse patient.[facility] CenterIn the event this information is protected by the Federal Confidentiality of Alcohol and Drug Abuse Patient Records regulations: The Federal rules restrict any use of the information to criminally investigate or prosecute any alcohol or drug abuse patient.[facility] CenterIn the event this information is protected by the Federal Confidentiality of Alcohol and Drug Abuse Patient Records regulations: The Federal rules restrict any use of the information to criminally investigate or prosecute any alcohol or drug abuse patient.[facility] CenterIn the event this information is protected by the Federal Confidentiality of Alcohol and Drug Abuse Patient Records regulations: The Federal rules restrict any use of the information to criminally investigate or prosecute any alcohol or drug abuse patient.[facility] CenterIn the event this information is protected by the Federal Confidentiality of Alcohol and Drug Abuse Patient Records regulations: The Federal rules restrict any use of the information to criminally investigate or prosecute any alcohol or drug abuse patient.[facility] CenterIn the event this information is protected by the Federal Confidentiality of Alcohol and Drug Abuse Patient Records regulations: The Federal rules restrict any use of the information to criminally investigate or prosecute any alcohol or drug abuse patient.[facility] CenterIn the event this information is protected by the Federal Confidentiality of Alcohol and Drug Abuse Patient Records regulations: The Federal rules restrict any use of the information to criminally investigate or prosecute any alcohol or drug abuse patient.[facility] CenterIn the event this information is protected by the Federal Confidentiality of Alcohol and Drug Abuse Patient Records regulations: The Federal rules restrict any use of the information to criminally investigate or prosecute any alcohol or drug abuse patient.[facility] CenterIn the event this information is protected by the Federal Confidentiality of Alcohol and Drug Abuse Patient Records regulations: The Federal rules restrict any use of the information to criminally investigate or prosecute any alcohol or drug abuse patient.[facility] CenterIn the event this information is protected by the Federal Confidentiality of Alcohol and Drug Abuse Patient Records regulations: The Federal rules restrict any use of the information to criminally investigate or prosecute any alcohol or drug abuse patient.[facility] CenterIn the event this information is protected by the Federal Confidentiality of Alcohol and Drug Abuse Patient Records regulations: The Federal rules restrict any use of the information to criminally investigate or prosecute any alcohol or drug abuse patient.[facility] CenterIn the event this information is protected by the Federal Confidentiality of Alcohol and Drug Abuse Patient Records regulations: The Federal rules restrict any use of the information to criminally investigate or prosecute any alcohol or drug abuse patient.[facility] CenterIn the event this information is protected by the Federal Confidentiality of Alcohol and Drug Abuse Patient Records regulations: The Federal rules restrict any use of the information to criminally investigate or prosecute any alcohol or drug abuse patient.[facility] CenterIn the event this information is protected by the Federal Confidentiality of Alcohol and Drug Abuse Patient Records regulations: The Federal rules restrict any use of the information to criminally investigate or prosecute any alcohol or drug abuse patient.[facility] CenterIn the event this information is protected by the Federal Confidentiality of Alcohol and Drug Abuse Patient Records regulations: The Federal rules restrict any use of the information to criminally investigate or prosecute any alcohol or drug abuse patient.[facility] CenterIn the event this information is protected by the Federal Confidentiality of Alcohol and Drug Abuse Patient Records regulations: The Federal rules restrict any use of the information to criminally investigate or prosecute any alcohol or drug abuse patient.[facility] CenterIn the event this information is protected by the Federal Confidentiality of Alcohol and Drug Abuse Patient Records regulations: The Federal rules restrict any use of the information to criminally investigate or prosecute any alcohol or drug abuse patient.[facility] CenterIn the event this information is protected by the Federal Confidentiality of Alcohol and Drug Abuse Patient Records regulations: The Federal rules restrict any use of the information to criminally investigate or prosecute any alcohol or drug abuse patient.[facility] CenterIn the event this information is protected by the Federal Confidentiality of Alcohol and Drug Abuse Patient Records regulations: The Federal rules restrict any use of the information to criminally investigate or prosecute any alcohol or drug abuse patient.[facility] CenterIn the event this information is protected by the Federal Confidentiality of Alcohol and Drug Abuse Patient Records regulations: The Federal rules restrict any use of the information to criminally investigate or prosecute any alcohol or drug abuse patient.[facility] CenterIn the event this information is protected by the Federal Confidentiality of Alcohol and Drug Abuse Patient Records regulations: The Federal rules restrict any use of the information to criminally investigate or prosecute any alcohol or drug abuse patient.[facility] the event this information is protected by the Federal Confidentiality of Alcohol and Drug Abuse Patient Records regulations: The Federal rules restrict any use of the information to criminally investigate or prosecute any alcohol or drug abuse patient.[facility] CenterIn the event this information is protected by the Federal Confidentiality of Alcohol and Drug Abuse Patient Records regulations: The Federal rules restrict any use of the information to criminally investigate or prosecute any alcohol or drug abuse patient.[facility] CenterIn the event this information is protected by the Federal Confidentiality of Alcohol and Drug Abuse Patient Records regulations: The Federal rules restrict any use of the information to criminally investigate or prosecute any alcohol or drug abuse patient.[facility] CenterIn the event this information is protected by the Federal Confidentiality of Alcohol and Drug Abuse Patient Records regulations: The Federal rules restrict any use of the information to criminally investigate or prosecute any alcohol or drug abuse patient.[facility] CenterIn the event this information is protected by the Federal Confidentiality of Alcohol and Drug Abuse Patient Records regulations: The Federal rules restrict any use of the information to criminally investigate or prosecute any alcohol or drug abuse patient.[facility] CenterIn the event this information is protected by the Federal Confidentiality of Alcohol and Drug Abuse Patient Records regulations: The Federal rules restrict any use of the information to criminally investigate or prosecute any alcohol or drug abuse patient.[facility] CenterIn the event this information is protected by the Federal Confidentiality of Alcohol and Drug Abuse Patient Records regulations: The Federal rules restrict any use of the information to criminally investigate or prosecute any alcohol or drug abuse patient.[facility] CenterIn the event this information is protected by the Federal Confidentiality of Alcohol and Drug Abuse Patient Records regulations: The Federal rules restrict any use of the information to criminally investigate or prosecute any alcohol or drug abuse patient.[facility] CenterIn the event this information is protected by the Federal Confidentiality of Alcohol and Drug Abuse Patient Records regulations: The Federal rules restrict any use of the information to criminally investigate or prosecute any alcohol or drug abuse patient.[facility] CenterIn the event this information is protected by the Federal Confidentiality of Alcohol and Drug Abuse Patient Records regulations: The Federal rules restrict any use of the information to criminally investigate or prosecute any alcohol or drug abuse patient.[facility] CenterIn the event this information is protected by the Federal Confidentiality of Alcohol and Drug Abuse Patient Records regulations: The Federal rules restrict any use of the information to criminally investigate or prosecute any alcohol or drug abuse patient.[facility] CenterIn the event this information is protected by the Federal Confidentiality of Alcohol and Drug Abuse Patient Records regulations: The Federal rules restrict any use of the information to criminally investigate or prosecute any alcohol or drug abuse patient.[facility] CenterIn the event this information is protected by the Federal Confidentiality of Alcohol and Drug Abuse Patient Records regulations: The Federal rules restrict any use of the information to criminally investigate or prosecute any alcohol or drug abuse patient.[facility] CenterIn the event this information is protected by the Federal Confidentiality of Alcohol and Drug Abuse Patient Records regulations: The Federal rules restrict any use of the information to criminally investigate or prosecute any alcohol or drug abuse patient.[facility] CenterIn the event this information is protected by the Federal Confidentiality of Alcohol and Drug Abuse Patient Records regulations: The Federal rules restrict any use of the information to criminally investigate or prosecute any alcohol or drug abuse patient.[facility] CenterIn the event this information is protected by the Federal Confidentiality of Alcohol and Drug Abuse Patient Records regulations: The Federal rules restrict any use of the information to criminally investigate or prosecute any alcohol or drug abuse patient.[facility] CenterIn the event this information is protected by the Federal Confidentiality of Alcohol and Drug Abuse Patient Records regulations: The Federal rules restrict any use of the information to criminally investigate or prosecute any alcohol or drug abuse patient.[facility] CenterIn the event this information is protected by the Federal Confidentiality of Alcohol and Drug Abuse Patient Records regulations: The Federal rules restrict any use of the information to criminally investigate or prosecute any alcohol or drug abuse patient.[facility] CenterIn the event this information is protected by the Federal Confidentiality of Alcohol and Drug Abuse Patient Records regulations: The Federal rules restrict any use of the information to criminally investigate or prosecute any alcohol or drug abuse patient.[facility] CenterIn the event this information is protected by the Federal Confidentiality of Alcohol and Drug Abuse Patient Records regulations: The Federal rules restrict any use of the information to criminally investigate or prosecute any alcohol or drug abuse patient.[facility] CenterIn the event this information is protected by the Federal Confidentiality of Alcohol and Drug Abuse Patient Records regulations: The Federal rules restrict any use of the information to criminally investigate or prosecute any alcohol or drug abuse patient.[facility] CenterIn the event this information is protected by the Federal Confidentiality of Alcohol and Drug Abuse Patient Records regulations: The Federal rules restrict any use of the information to criminally investigate or prosecute any alcohol or drug abuse patient.[facility] CenterIn the event this information is protected by the Federal Confidentiality of Alcohol and Drug Abuse Patient Records regulations: The Federal rules restrict any use of the information to criminally investigate or prosecute any alcohol or drug abuse patient.[facility] CenterIn the event this information is protected by the Federal Confidentiality of Alcohol and Drug Abuse Patient Records regulations: The Federal rules restrict any use of the information to criminally investigate or prosecute any alcohol or drug abuse patient.[facility] CenterIn the event this information is protected by the Federal Confidentiality of Alcohol and Drug Abuse Patient Records regulations: The Federal rules restrict any use of the information to criminally investigate or prosecute any alcohol or drug abuse patient.[facility] CenterIn the event this information is protected by the Federal Confidentiality of Alcohol and Drug Abuse Patient Records regulations: The Federal rules restrict any use of the information to criminally investigate or prosecute any alcohol or drug abuse patient.[facility] CenterIn the event this information is protected by the Federal Confidentiality of Alcohol and Drug Abuse Patient Records regulations: The Federal rules restrict any use of the information to criminally investigate or prosecute any alcohol or drug abuse patient.[facility] CenterIn the event this information is protected by the Federal Confidentiality of Alcohol and Drug Abuse Patient Records regulations: The Federal rules restrict any use of the information to criminally investigate or prosecute any alcohol or drug abuse patient.[facility] CenterIn the event this information is protected by the Federal Confidentiality of Alcohol and Drug Abuse Patient Records regulations: The Federal rules restrict any use of the information to criminally investigate or prosecute any alcohol or drug abuse patient.[facility] CenterIn the event this information is protected by the Federal Confidentiality of Alcohol and Drug Abuse Patient Records regulations: The Federal rules restrict any use of the information to criminally investigate or prosecute any alcohol or drug abuse patient.[facility] CenterIn the event this information is protected by the Federal Confidentiality of Alcohol and Drug Abuse Patient Records regulations: The Federal rules restrict any use of the information to criminally investigate or prosecute any alcohol or drug abuse patient.[facility] CenterIn the event this information is protected by the Federal Confidentiality of Alcohol and Drug Abuse Patient Records regulations: The Federal rules restrict any use of the information to criminally investigate or prosecute any alcohol or drug abuse patient.[facility] CenterIn the event this information is protected by the Federal Confidentiality of Alcohol and Drug Abuse Patient Records regulations: The Federal rules restrict any use of the information to criminally investigate or prosecute any alcohol or drug abuse patient.[facility] CenterIn the event this information is protected by the Federal Confidentiality of Alcohol and Drug Abuse Patient Records regulations: The Federal rules restrict any use of the information to criminally investigate or prosecute any alcohol or drug abuse patient.[facility] CenterIn the event this information is protected by the Federal Confidentiality of Alcohol and Drug Abuse Patient Records regulations: The Federal rules restrict any use of the information to criminally investigate or prosecute any alcohol or drug abuse patient.[facility] CenterIn the event this information is protected by the Federal Confidentiality of Alcohol and Drug Abuse Patient Records regulations: The Federal rules restrict any use of the information to criminally investigate or prosecute any alcohol or drug abuse patient.[facility] CenterIn the event this information is protected by the Federal Confidentiality of Alcohol and Drug Abuse Patient Records regulations: The Federal rules restrict any use of the information to criminally investigate or prosecute any alcohol or drug abuse patient.[facility] CenterIn the event this information is protected by the Federal Confidentiality of Alcohol and Drug Abuse Patient Records regulations: The Federal rules restrict any use of the information to criminally investigate or prosecute any alcohol or drug abuse patient.[facility] Care Teams (unrecognized sec tion and content) [employer] Relationship Specialty Start Date End Date Gay Enciso, HIGH SCHOOL [employer]UTOR.[employer]ER [address] [place] [address] PCP - General Family Practice 10/24/21 [employer] Relationship Specialty Start Date End Date Gay Enciso, H[employer] SCHO[employer]ER [address] [place] [address] PCP - General Family Medicine 10/24/21 Madelaine Ferris MD [address] [place] [address] Referring Family Medicine 02/12/22 [employer] Relationship Specialty Start Date End Date Madelaine Ferris MD [address] [facility] [place] [place] [id number] PCP - General Family Medicine 02/27/22 Madelaine Ferris MD [address] [place] [place] [id number] Referring Family Medicine 02/12/22 [employer] Relationship Specialty Start Date End Date Madelaine Ferris MD [address] [place] [place] [place] [id number] PCP - General Family Medicine 02/27/22 Madelaine Ferris MD [address] [place] [place] [address] Referring Family Medicine 02/12/22 [employer] Relationship Specialty Start Date End Date Madelaine Ferris MD [address] [place] [address] PCP - General Family Medicine 02/27/22 Madelaine Ferris MD [address] [place] [place] [address] Referring Family Medicine 02/12/22 [employer] Relationship Specialty Start Date End Date Madelaine Ferris MD [address] [place] [place] [id number] PCP - General Family Medicine 02/27/22 Madelaine Ferris MD [address] [place] [place] [id number] Referring Family Medicine 02/12/22 [employer] Relationship Specialty Start Date End Date Madelaine Ferris MD [address] [place] [id number] PCP - General Family Medicine 02/27/22 Madelaine Ferris MD [address] [id number] Referring Family Medicine 02/12/22 [employer] Relationship Specialty Start Date End Date Madelaine Ferris MD [address] [place] [id number] PCP - General Family Medicine 02/27/22 Madelaine Ferris MD [address] [place] [place] [place] [id number] Referring Family Medicine 02/12/22 [employer] Relationship Specialty Start Date End Date Madelaine Ferris MD [address] [place] [id number] PCP - General Family Medicine 02/27/22 Madelaine Ferris MD [address] [place] [place] [place] [address] Referring Family Medicine 02/12/22 [employer] Relationship Specialty Start Date End Date Madelaine Ferris MD [address] [place] [id number] PCP - General Family Medicine 02/27/22 Madelaine Ferris MD [address] [place] [place] [address] Referring Family Medicine 02/12/22 [employer] Relationship Specialty Start Date End Date Madelaine Ferris MD [address] [place] [place] [place] [address] PCP - General Family Medicine 02/27/22 Madelaine Ferris MD [address] [place] [place] [place] [address] Referring Family Medicine 02/12/22 [employer] Relationship Specialty Start Date End Date Madelaine Ferris MD [address] [place] [place] [address] PCP - General Family Medicine 02/27/22 Madelaine Ferris MD [address] [place] [place] [place] [address] Referring Family Medicine 02/12/22 [employer] Relationship Specialty Start Date End Date Madelaine Ferris MD [address] [place] [place] [place] [address] PCP - General Family Medicine 02/27/22 Madelaine Ferris MD [address] [place] [place] [place] [address] Referring Family Medicine 02/12/22 [employer] Relationship Specialty Start Date End Date Madelaine Ferris MD [address] [place] [place] [address] PCP - General Family Medicine 02/27/22 Madelaine Ferris MD [address] [place] [place] [place] [address] Referring Family Medicine 02/12/22 [employer] Relationship Specialty Start Date End Date Madelaine Ferris MD [address] [place] [place] [place] [address] PCP - General Family Medicine 02/27/22 Madelaine Ferris MD [address] [place] [place] [place] [address] Referring Family Medicine 02/12/22 [employer] Relationship Specialty Start Date End Date Madelaine Ferris MD [address] [place] [place] [place] [address] PCP - General Family Medicine 02/27/22 Madelaine Ferris MD [address] [place] [place] [address] Referring Family Medicine 02/12/22 [employer] Relationship Specialty Start Date End Date Madelaine Ferris MD [address] [place] [place] [place] [address] PCP - General Family Medicine 02/27/22 Madelaine Ferris MD [address] [place] [place] [place] [address] Referring Family Medicine 02/12/22 [employer] Relationship Specialty Start Date End Date Madelaine Ferris MD [address] [place] [place] [place] [address] PCP - General Family Medicine 02/27/22 Madelaine Ferris MD [address] [place] [place] [address] Referring Family Medicine 02/12/22 [employer] Relationship Specialty Start Date End Date Madelaine Ferris MD [address] [place] [place] [address] PCP - General Family Medicine 02/27/22 Madelaine Ferris MD [address] [place] [address] Referring Family Medicine 02/12/22 [employer] Relationship Specialty Start Date End Date Madelaine Ferris MD [address] [place] [place] [place] [address] PCP - General Family Medicine 02/27/22 Madelaine Ferris MD [address] [place] [place] [place] [address] Referring Family Medicine 02/12/22 [employer] Relationship Specialty Start Date End Date Madelaine Ferris MD [address] [place] [place] [address] PCP - General Family Medicine 02/27/22 Madelaine Ferris MD [address] [place] [address] Referring Family Medicine 02/12/22 [employer] Relationship Specialty Start Date End Date Madelaine Ferris MD [address] [place] [place] [place] [address] PCP - General Family Medicine 02/27/22 Madelaine Ferris MD [address] [place] [address] Referring Family Medicine 02/12/22 [employer] Relationship Specialty Start Date End Date Madelaine Ferris MD [address] [place] [address] PCP - General Family Medicine 02/27/22 Madelaine Ferris MD [address] [place] [address] Referring Family Medicine 02/12/22 [employer] Relationship Specialty Start Date End Date Madelaine Ferris MD PCP - General Family Medicine 02/27/22 Madelaine Ferris MD Referring Family Medicine 02/12/22 [employer] Relationship Specialty Start Date End Date Madelaine Ferris MD PCP - General Family Medicine 02/27/22 Madelaine Ferris MD Referring Family Medicine 02/12/22 [employer] Relationship Specialty Start Date End Date Madelaine Ferris MD PCP - General Family Medicine 02/27/22 Madelaine Ferris MD Referring Family Medicine 02/12/22 [employer] Relationship Specialty Start Date End Date Madelaine Ferris MD PCP - General Family Medicine 02/27/22 Madelaine Ferris MD Referring Family Medicine 02/12/22 [employer] Relationship Specialty Start Date End Date Madelaine Ferris MD PCP - General Family Medicine 02/27/22 Madelaine Ferris MD Referring Family Medicine 02/12/22 [employer] Relationship Specialty Start Date End Date Madelaine Ferris MD PCP - General Family Medicine 02/27/22 Madelaine Ferris MD Referring Family Medicine 02/12/22 [employer] Relationship Specialty Start Date End Date Madelaine Ferris MD PCP - General Family Medicine 02/27/22 Madelaine Ferris MD Referring Family Medicine 02/12/22 [employer] Relationship Specialty Start Date End Date Madelaine Ferris MD PCP - General Family Medicine 02/27/22 Madelaine Ferris MD Referring Family Medicine 02/12/22 [employer] Relationship Specialty Start Date End Date Madelaine Ferris MD PCP - General Family Medicine 02/27/22 Madelaine Ferris MD Referring Family Medicine 02/12/22 [employer] Relationship Specialty Start Date End Date Madelaine Ferris MD PCP - General Family Medicine 02/27/22 Madelaine Ferris MD Referring Family Medicine 02/12/22 [employer] Relationship Specialty Start Date End Date Madelaine Ferris MD PCP - General Family Medicine 02/27/22 Madelaine Ferris MD Referring Family Medicine 02/12/22 [employer] Relationship Specialty Start Date End Date Madelaine Ferris MD PCP - General Family Medicine 02/27/22 Madelaine Ferris MD Referring Family Medicine 02/12/22 [employer] Relationship Specialty Start Date End Date Madelaine Ferris MD PCP - General Family Medicine 02/27/22 Madelaine Ferris MD Referring Family Medicine 02/12/22 [employer] Relationship Specialty Start Date End Date Madelaine Ferris MD PCP - General Family Medicine 02/27/22 Madelaine Ferris MD Referring Family Medicine 02/12/22 [employer] Relationship Specialty Start Date End Date Madelaine Ferris MD PCP - General Family Medicine 02/27/22 Madelaine Ferris MD Referring Family Medicine 02/12/22 [employer] Relationship Specialty Start Date End Date Madelaine Ferris MD PCP - General Family Medicine 02/27/22 Madelaine Ferris MD Referring Family Medicine 02/12/22 [employer] Relationship Specialty Start Date End Date Madelaine Ferris MD PCP - General Family Medicine 02/27/22 Madelaine Ferris MD Referring Family Medicine 02/12/22 [employer] Relationship Specialty Start Date End Date Madelaine Ferris MD PCP - General Family Medicine 02/27/22 Madelaine eFrris MD Referring Family Medicine 02/12/22 [employer] Relationship Specialty Start Date End Date Madelaine Ferris MD PCP - General Family Medicine 02/27/22 Madelaine Ferris MD Referring Family Medicine 02/12/22 [employer] Relationship Specialty Start Date End Date Madelaine Ferris MD PCP - General Family Medicine 02/27/22 Madelaine Ferris MD Referring Family Medicine 02/12/22 [employer] Relationship Specialty Start Date End Date Madelaine Ferris MD PCP - General Family Medicine 02/27/22 Madelaine Freris MD Referring Family Medicine 02/12/22 [employer] Relationship Specialty Start Date End Date Madelaine Ferris MD PCP - General Family Medicine 02/27/22 Madelaine Ferris MD Referring Family Medicine 02/12/22 [employer] Relationship Specialty Start Date End Date Madelaine Ferris MD PCP - General Family Medicine 02/27/22 Madelaine Ferris MD Referring Family Medicine 02/12/22 [employer] Relationship Specialty Start Date End Date Madelaine Ferris MD PCP - General Family Medicine 02/27/22 Madelaine Ferris MD Referring Family Medicine 02/12/22 [employer] Relationship Specialty Start Date End Date Madelaine Ferris MD PCP - General Family Medicine 02/27/22 Madelaine Ferris MD Referring Family Medicine 02/12/22 [employer] Relationship Specialty Start Date End Date Madelaine Ferris MD PCP - General Family Medicine 02/27/22 Madelaine Ferris MD Referring Family Medicine 02/12/22 [employer] Relationship Specialty Start Date End Date Charles Mitchell DO [address] [place] [address] PCP - General 10/22/18 Michelle Britton, [employer] [address] [place] [address] [address] [place] [address] Nurse Practitioner Cardiology 06/08/23 FOR RECORDS PERTAINING [...] BE BASED ON THE PRIMARY CLINICAL RECORDS. [facility] [employer] provides no warranty or guarantee of the accuracy or completeness of information in this document.
[2023-06-28 19:04] LABS: Adenovirus F 40/41 NOT DETECTED (NOT DETECTE); Astrovirus NOT DETECTED (NOT DETECTE); Campylobacter NOT DETECTED (NOT DETECTE); Cryptosporidium NOT DETECTED (NOT DETECTE); Cyclospora cayetanensis NOT DETECTED (NOT DETECTE); Entamoeba histolytica NOT DETECTED (NOT DETECTE); Enteroaggregative E.coli NOT DETECTED (NOT DETECTE); Enteropathogenic E.coli NOT DETECTED (NOT DETECTE); Enterotoxigenic E. coli NOT DETECTED (NOT DETECTE); Giardia lamblia NOT DETECTED (NOT DETECTE); Norovirus GI/GII NOT DETECTED (NOT DETECTE); Plesiomonas shigelloides NOT DETECTED (NOT DETECTE); Rotavirus A NOT DETECTED (NOT DETECTE); Salmonella NOT DETECTED (NOT DETECTE); Sapovirus NOT DETECTED (NOT DETECTE); Shiga-like toxin-producing E.C NOT DETECTED (NOT DETECTE); Shigella/Enteroinvasive E.coli NOT DETECTED (NOT DETECTE); Vibrio NOT DETECTED (NOT DETECTE); Vibrio cholerae NOT DETECTED (NOT DETECTE); Yersinia enterocolitica NOT DETECTED (NOT DETECTE)
== END 2023-06-27 17:24 | disposition home or self-care (01) ==
LOC: LAB 17:23
PROVIDERS: PCP Nurse Practitioner Family; Visit Provider Physician Assistant
DX: R19.7 Diarrhea, unspecified (principal)
CPT/HCPCS: 87507

== ENCOUNTER 2023-07-07 22:07 | Emergency (ER) | payer OTHER, SELFPAY ==
[2023-07-07] VITALS (8 sets, daily range): BP systolic 128; BP diastolic 83; PULSE 73–96; RESP 16–25; TEMP 37.2; O2SAT 97; BMI 43.9
--- NOTE | 2023-07-07 22:15 | ED.SOB1 ---
HPI - SOB/Dyspnea General Stated Complaint: Abdominal Pain Time Seen by Provider: 07/07/23 22:10 Source: patient Mode of arrival: walk-in History of Present Illness HPI Narrative: This 42-year-old female, nonsmoker with a history of elizabeth and polycystic ovarian syndrome presents for evaluation of dry cough with shortness of breath and pain with trying to take a deep breath starting this morning. She has had some chills and sweats. She denies any dizziness or syncope. In May she was treated for an upper respiratory and with the Zithromax. She states her cough started improving after that and she has been feeling well until earlier today. She denies any nausea vomiting or diarrhea. She has no abdominal pain or back pain. She does get some swelling of her feet and ankles when she is on her feet for an extended period of time but does not have any calf pain or swelling. She states she has been using her albuterol inhaler without significant improvement. She feels like she cannot get a good breath in due to the pain in her anterior chest with deep breathing. Related Data Home Medications Medication Instructions Recorded Confirmed 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 50 mg tablet 150 mg PO DAILY 12/18/22 06/26/23 clindamycin phosphate 1 % topical 1 applic topical DAILY 12/18/22 06/26/23 gel clobetasol 0.05 % shampoo 1 applic topical .4 times weekly 12/18/22 06/26/23 ergocalciferol (vitamin D2) 1,250 1,250 mcg PO .3 times weekly 12/18/22 06/26/23 mcg (50,000 unit) capsule fluocinonide 0.05 % topical 1 applic topical BID 12/18/22 06/26/23 solution folic acid 1 mg tablet 1 mg PO DAILY 12/18/22 06/26/23 hydroxychloroquine 200 mg tablet 200 mg PO BID 12/18/22 06/26/23 metoprolol tartrate 25 mg tablet 100 mg PO Q12H 12/18/22 06/26/23 prednisone 10 mg tablet 10 mg PO DAILY 12/18/22 06/26/23 pregabalin 75 mg capsule 75 mg PO Q8H 12/18/22 06/26/23 tacrolimus 0.1 % topical ointment 1 applic topical Q12H PRN forehead 07/28/23 02/03/24 Previous Rx's Medication Instructions Recorded hyoscyamine sulfate 0.125 mg 0.125 mg PO Q6H PRN abdominal pain 06/26/23 tablet (Levsin) #12 tabs magnesium citrate (Citrate of 296 ml PO DAILY constipation #296 06/26/23 Magnesia oral) mL ondansetron 4 mg disintegrating 4 mg PO Q6H PRN nausea and 06/26/23 tablet vomiting #12 tabs metronidazole 500 mg tablet 500 mg PO Q12H 10 days #20 tabs 06/28/23 Allergies Allergy/AdvReac Type Severity Reaction Status Date / Time Bactrim Allergy Intermediate Uncoded 12/18/22 23:12 PFSH PFSH Social History Smoking status: Current every day smoker Discharge Plan Discharge Prescriptions / Home Meds: No Action 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 50 mg tablet 150 mg PO DAILY clindamycin phosphate 1 % gel 1 applic TOPICAL DAILY clobetasol 0.05 % shampoo 1 applic TOPICAL .4 times weekly ergocalciferol (vitamin D2) 1,250 mcg (50,000 unit) capsule 1,250 mcg PO .3 times weekly fluocinonide 0.05 % solution 1 applic TOPICAL BID folic acid 1 mg tablet 1 mg PO DAILY hydroxychloroquine 200 mg tablet 200 mg PO BID metoprolol tartrate 25 mg tablet 100 mg PO Q12H prednisone 10 mg tablet 10 mg PO DAILY pregabalin 75 mg capsule 75 mg PO Q8H tacrolimus 0.1 % ointment 1 applic TOPICAL Q12H PRN (Reason: forehead) hyoscyamine sulfate [Levsin] 0.125 mg tablet 0.125 mg PO Q6H PRN (Reason: abdominal pain) Qty: 12 0RF ondansetron 4 mg tablet,disintegrating 4 mg PO Q6H PRN (Reason: nausea and vomiting) Qty: 12 0RF magnesium citrate [Citrate of Magnesia] Solution 296 ml PO DAILY Qty: 296 0RF Rx Instructions: Take half of the bottle with 8 oz of water, take the other half after 1 hour with 8 oz of water metronidazole 500 mg tablet 500 mg PO Q12H 10 Days Qty: 20 0RF Referrals: SAMSON ENCISO [Primary Care Provider] - 1 week
--- OUTSIDE RECORDS SUMMARY | 2023-07-07 22:16 | XMS_ITS | CCD ---
Author Name Unknown Address [address] [place] [address] Organization [facility] Care Team Providers Care Drywall 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 Name Role Phone VICTOR MANUEL GUZMAN Referring Unavailable Bettina Jiménez Admitting Unavailable Bettina Jiménez Attending Unavailable Lui Salomon Primary Care Unavailable Unavailable Primary Care Provider UnavailJAREN Stuart Referring Unavailable Britt GARBAGE TRUCK HELPER.TRUE, Gay Primary Care Provider [phone] Mirela Kelsey Unavailable Britt GARBAGE TRUCK HELPER.Gay BISWAS Primary Care Provider Madelaine Ferris MD Unavailable Madelaine Ferris MD Primary Care Provider Madelaine Ferris MD Unavailable Madelaine Ferris MD Primary Care Provider [phone] Madelaine Ferris MD Unavailable Madelaine Ferris MD Primary Care Provider [phone] MADELAINE LEYVA Primary Care Unavailable MISC, DR SMITH Consulting Unavailable MISC, DR SMITH Attending Unavailable MISC, DR SMITH Admitting Unavailable MADELAINE GOMEZ Consulting Unavailable ENID ., DR GALLEGOS Consulting Unavailable ENID ., DR GALLEGOS Attending Unavailable JOSY ., DR BURKETT Primary Care Unavailable ENID ., DR GALLEGOS Admitting Unavailable KRISTINA GARRETT Consulting Unavailable JOSY ., DR BURKETT Primary Care Unavailable JOSY ., DR BURKETT Consulting Unavailable JOSY ., DR BURKETT Attending Unavailable JOSY ., DR BURKETT Admitting Unavailable GAY ENCISO Attending Unavailable GAY ENCISO Admitting Unavailable JOSY ., DR BURKETT Primary Care [...] Attending Unavailable PARMJIT ., MICKY Admitting Unavailable MONCURE, DR AURORA Pacheco Consulting Unavailable HOY ., [...] Unavailable HOY, MADELAINE M Primary Care Unavailable VENUS NAJERAEK Attending Unavailable HOY, MADELAINE M Primary Care Unavailable HOY, MADELAINE M Primary Care Unavailable VENUS NAJERAEK Attending Unavailable HOY, MADELAINE M Primary Care Unavailable HOY, MADELAINE M Primary Care Unavailable HOY, MADELAINE M Primary Care Unavailable HOY, MADELAINE M Primary Care Unavailable WILMER DRIVER Attending Unavailable HOY, MADELAINE M Primary Care Unavailable HOY, MADELAINE M Primary Care Unavailable CHRISTIE PHAN Referring Unavailable CHRISTIE PHAN Attending Unavailable HOY, MADELAINE M Primary Care Unavailable HOY, MADELAINE M Primary Care Unavailable TIMMY HCEK Attending Unavailable HOY, MADELAINE M Primary Care [...] Unavailable HOY, MADELAINE M Primary Care Unavailable Unavailable Primary Care Provider Unavailabl e Allergies Allergy Classification Reported Allergen(s) Allergy Type Date of Onset Reaction(s) Facility Sulfamethoxazole / Trimethoprim (1 source) Sulfamethoxazole / Trimethoprim Drug Allergy [facility] (20 sources) Codeine; Translations: [CODEINE] Drug Allergy Other: See Comments [facility] (20 sources) Latex; Translations: [LATEX] Drug Allergy Rash [facility] (20 sources) Sulfamethoxazole; Translations: [SULFAMETHOXAZOLE] Drug Allergy GI Upset [facility] (20 sources) Clindamycin; Translations: [CLINDAMYCIN] Drug Allergy Unknown [facility] (4 sources) Sulfamethoxazole / Trimethoprim Drug Allergy lymph swelling [facility] Other (20 sources) Doxycycline; Translations: [DOXYCYCLINE] Drug Allergy Other: See Comments, Other, Unknown [facility] (20 sources) Sulfamethoxazole / Trimethoprim; Translations: [SULFAMETHOXAZOLE-T RIMETHOPRIM] Drug Allergy Swelling, Other [facility] (20 sources) Trimethoprim; Translations: [TRIMETHOPRIM] Drug Allergy Other: See Comments [facility] (1 source) Latex Drug allergy (disorder) [facility] (1 source) Sulfamethoxazole / Trimethoprim Drug Allergy [facility] (3 sources) Sulfamethoxazole Allergy to substance [facility] (2 sources) Latex Propensity to adverse reactions Rash [facility] Medications Current Medications Medication Drug Class(es) Dates Sig (Normalized) Sig (Original) acetaminophen 325 mg oral tablet (20 sources) acetaminophen (T ylenol) 325 MG tablet every 4 (four) hours. 0 Active take 2 tablets by mo [facility] every eight hours as needed acetaminophen (Tylenol) 500 mg tablet Ta ke 2 tablets (1,000 mg) by mouth every 8 hours if needed for mild pain (1 - 3), moderate pain (4 - 6), headaches or fever (temp greater than 38.0 C). 0 Active acetaminophen (T YLENOL) 500 mg tablet Take 1,000 mg by mouth. 0 Active Comment on above: Take 1,000 mg by kristal th. ALPRAZolam 0.25 mg oral tablet (2 sources) Benzodiazepine Start: 06-24-19 24 take 1 tablet by mouth once daily as needed ALPRAZolam (Xanax) 0.25 MG tablet TAKE 1 TABLET BY MOUTH EVERY DAY NEEDED FOR 30 DAYS 0 06/24/2023 Active amLODIPine 2.5 mg oral tablet (1 source) Dihydropyridine Calcium Channel Judie Start: 10-08-19 21 take 1 tablet by [...] Aggregation Inhibitor, Nonsteroidal Anti-inflammatory Drug aspirin 81 MG chewable tablet Chew 81 mg in the morning. 0 Active Comment on above: Take 81 mg by mouth. azaTHIOprine 50 mg oral tablet (20 sources) Purine Antimetabolite Start: 02-17-20 take 3 tablets by mouth in the morning azaTHIOprine (Imuran) 50 MG tablet Take 150 mg by mouth in the morning. 0 05/24/2023 Active Start: 11-24-2022 End: 02-16-2023 take 3 tablets by mouth once daily at mealtime azaTHIOprine (IMURAN) 50 mg tablet Indications: Other systemic lupus erythematosus with other organ involvement (HCC) , 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 correction 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 TAKE 3 TABLETS BY MOUTH DAILY WITH FOOD. HOLD IF ON ANTIBIOTICS OR ILL. 90 tablet 3 02/16/2023 Active Start: 08-19-2022 End: 11-24-2022 take 2 tablets by mouth once daily at mealtime azaTHIOprine (IMURAN) 50 mg tablet Indications: Other systemic lupus erythematosus with other organ involvement (HCC) , 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 director long term care 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 Take 2tab daily [...] ILL. 1 ml belimumab 200 mg/ml auto-injector (18 sources) B Lymphocyte Stimulator-specific Inhibitor Start: 023 inject 200 mg by subcutaneous injection every week belimumab (Benlysta) 200 MG/ML injection Inject 200 mg under the skin 1 (one) time per week 0 02/04/2023 Active Comment on above: Inject 200mg (1 pen) subcutaneously once weekly cephalexin 500 mg oral capsule (5 sources) Cephalosporin Antibacterial Start: 023 cephalexin (Keflex) 500 MG capsule Indications: Postoperative stitch abscess Take 1 tablet twice a day x 7 days 14 capsule 0 01/07/2023 Active Keflex Active clindamycin 0.01 mg/mg topical gel (4 sources) Lincosamide Antibacterial Start: 06-23-2022 clindamycin (Clindagel) 1 % gel 1 (one) time each day at the same time. 0 06/23/2022 Active clobetasol propionate 0.5 mg/ml medicated shampoo (4 sources) Corticosteroid Start: 10-23-2022 Clobetasol Propionate 0.05 % shampoo Indications: Other seborrheic dermatitis 1 application to the scalp in the shower topically 3-4 times a week 236 mL 11 10/23/2022 Active CPAP/BIPAP/OTHER (20 sources) Start: 05-05-2022 End: 09-19-2049 CPAP/BIPAP/OTHER Indications: JOSE RAFAEL (obstructive sleep apnea) Type .CPAPSettings into a note to see current settings/supplies/DM E information. 1 Each 0 05/05/2022 09/19/2049 Active [...] every week ergocalciferol (Vitamin D-2) 1.25 MG (80980 UT) capsule Take 1 capsule (50,000 Units) [...] 8 WEEKS. 24 capsule 0 03/06/2021 Active take 1 capsule by mo uth every week ergocalciferol (Vitamin D2) 1.25 MG (95904 UT) capsule Take 50,000 Units by mouth 1 (one) time per week 0 Active Comment on above: (take by mouth [...] 8 WEEKS, then once a week thereafter. fludrocortisone acetate 0.1 mg oral tablet (3 sources) Start: End: take 1 tablet by mouth at bedtime fludrocortisone (Florinef) 0.1 MG tablet Indications: Autonomic dysfunction Take 1 tablet (0.1 mg) by mouth at bedtime 30 tablet 11 06/01/2023 05/31/2024 Active fluocinonide 0.5 mg/ml topical solution (4 sources) Corticosteroid Start: fluocinonide (Lidex) 0.05 % external solution Indications: Other seborrheic dermatitis apply to affected area on scalp topically qd-bid prn for 30 day(s) 120 mL 11 10/20/2022 Active folic acid 1 mg oral tablet (20 sources) Start: End: take 1 tablet by mouth in the morning folic acid (Folvite) 1 MG tablet Take 1 mg by mouth in the morning. 0 01/15/2023 Active Comment on above: Take 1 tablet by kristal once daily. TAKE 1 TABLET BY KIRSTAL EVERY DAY hyoscyamine sulfate 0.125 mg oral tablet (2 sources) Start: take 1 tablet by mouth every six hours as needed for pain hyoscyamine (Anaspaz,Levsin) 0.125 MG tablet TAKE 1 TABLET BY MOUTH EVERY 6 HOURS NEEDED FOR ABDOMINAL PAIN 0 06/27/2023 Active ibuprofen 200 mg oral tablet (20 sources) Nonsteroidal Anti-inflammatory Drug ibuprofen 200 MG tablet every 8 (eight) hours. 0 Active take 3 tablets by mo [facility] every eight hours as needed ibuprofen 200 mg tablet Take 3 tablets (600 mg) by mouth every 8 hours if needed. 0 Active take 1 tablet by kristal every six hours as needed for pain ibuprofen (ADVIL;MOTRIN) 200 MG tablet Take 200 mg by mouth every 6 hours as needed for Pain 0 Active Comment on above: Take 600 mg by mouth . magnesium citrate 58.2 mg/ml oral solution (2 sources) Start: 06-27-2023 [facility] Magnesium Citrate oral solution TAKE HALF OF THE BOTTLE WITH 8 OZ OF WATER, TAKE THE OTHER HALF AFTER 1 HOUR WITH 8 OZ OF WATER 0 06/27/2023 Active metoprolol tartrate 50 mg oral tablet (20 sources) beta-Adrenergic Judie Start: 04-23-2023 take 2 tablets by mouth in the morning metoprolol tartrate (Lopressor) 50 MG tablet Take 100 mg by mouth in the morning and 100 mg before bedtime. 0 04/23/2023 Active Start: 05-25-2022 [facility] metoprolol tartrate, short acting, [...] twice daily. montelukast 10 mg oral tablet (4 sources) Leukotriene Receptor Antagonist Start: 4 End: 5 take 1 tablet by mouth at bedtime montelukast (Singulair) 10 MG tablet Indications: Headache due to low cerebrospinal fluid pressure , Allergic disorder, sequela Take 1 tablet (10 mg) by mouth at bedtime 30 tablet 11 05/25/2023 05/24/2024 Active Naltrexone (15 sources) Opioid Antagonist Start: 2 End: 3 take 1 capsule by mouth once daily naltrexone capsule 1 mg TAKE ONE CAPSULE BY MOUTH DAILY 0 01/19/2022 07/25/2022 Discontinued Start: 01-19-2022 take 1 capsule by mo [facility] once daily naltrexone capsule 1 mg TAKE ONE CAPSULE BY MOUTH DAILY 0 01/19/2022 Active Comment on above: TAKE ONE CAPSULE BY MOUTH DAILY nitroglycerin 0.4 mg sublingual tablet (20 sources) Nitrate Vasodilator Start: 021 End: 023 nitroglycerin sublingual (NITROQUICK) 0.4 mg SL tablet Dissolve 0.4 mg under the tongue. 0 10/07/2020 07/25/2022 Discontinued Comment on above: Dissolve 0.4 mg unde r the tongue. nystatin [id number] unt/ml topical cream (3 sources) Polyene Antifungal Start: 023 nystatin (Mycostatin) cream Indications: Candidiasis of skin Apply to left armpit BID until clear 15 g 0 01/15/2023 Active ondansetron 4 mg disintegrating oral tablet (2 sources) Serotonin-3 Receptor Antagonist Start: take 1 tablet by mouth every six hours as needed for nausea and vomiting ondansetron ODT (Zofran-ODT) 4 MG disintegrating tablet DISSOLVE 1 TABLET IN MOUTH EVERY 6 HOURS NEEDED FOR NAUSEA AND VOMITING 0 06/27/2023 Active phentermine hydrochloride 37.5 mg oral tablet (9 sources) Sympathomimetic Amine Anorectic Start: End: take 1 tablet by mouth before mealtime phentermine (Adipex-P) 37.5 MG tablet Take 37.5 mg by mouth in the morning. Take before meals. 0 05/26/2023 08/24/2023 Active Comment on above: Take 1 tablet by kristal th daily before breakfast for 30 days. Take 1 tablet by kristal th daily before breakfast for 90 days. pravastatin sodium 20 mg oral tablet (2 sources) HMG-CoA Reductase Inhibitor Start: take 1 tablet by mouth once daily pravastatin (Pravachol) 20 MG tablet TAKE 1 TABLET BY MOUTH EVERY DAY FOR 30 DAYS 0 06/24/2023 Active predniSONE 10 mg oral tablet (20 sources) [...] every 5days until 10mg daily thereafter pregabalin 100 mg oral capsule (20 sources) Start: take 1 capsule by mouth three times daily pregabalin (Lyrica) 100 MG capsule Indications: Lumbosacral radiculopathy TAKE 1 CAPSULE BY MOUTH THREE TIMES A DAY for 30 90 capsule 2 07/06/2023 Active Start: 10-13-2021 End: 03-01-2024 take 1 capsule by mouth three times daily pregabalin (Lyrica) 75 MG capsule TAKE 1 CAPSULE BY MOUTH THREE TIMES A DAY for 30 0 08/05/2022 07/06/2023 Discontinued (Reorder) Lyrica Active Comment on above: TAKE 1 CAPSULE BY MO UT 3 TIMES A DAY FOR 30 DAYS TAKE 1 CAPSULE BY MO UTH 3 TIMES A DAY take 1 capsule by mo uth three times a day 1000 ml sodium chloride 9 mg/ml injection (1 source) Start: 10-08-19 21 0.9 % sodium chloride infusion thiamine 100 mg oral tablet (4 sources) Start: 06-01-19 24 End: 05-31-19 take 1 tablet by mouth in the morning thiamine (Vitamin B-1) 100 MG tablet Indications: Autoimmune disease (CMS/HCC) , Fibromyalgia , Numbness Take 1 tablet (100 mg) by mouth in the morning. 30 tablet 11 06/01/2023 05/31/2024 Active topiramate 25 mg oral tablet (8 sources) Start: 04-26-20 End: 08-24-19 24 take 1 tablet by mouth twice daily topiramate (Topamax) 25 mg tablet Take 1 tablet (25 mg) by mouth twice a day. 0 05/26/2023 Active Comment on above: Take 1 tablet by kristal two times a day. triamcinolone acetonide 0.25 mg/ml topical lotion (4 sources) Corticosteroid Start: 06-23-19 Triamcinolone Acetonide 0.025 % lotion 1 application. 0 06/23/2022 Active Vitamin D 50 MCG [...] and Norepinephrine Reuptake Inhibitor Start: 10-30-19 End: 04-26-20 23 take 1 capsule by mouth once [...] Comment on above: Take 1 capsule by [facility] once daily. famotidine 20 mg oral tablet (2 sources) Histamine-2 Receptor Antagonist Start: 1 End: 2 take 1 tablet by mouth once daily [...] (20 sources) Antimalarial, Antirheumatic Agent Start: 10-31-19 hydrOXYchloroQUINE (PLAQUENIL) 200 mg tablet Indications: CHRISTIAN [...] on med. 180 tablet 3 10/24/2021 Active hydroxychloroqui ne (Plaquenil) 400 MG tablet 1 (one) time each day at the same time. 0 Active End: 03-12-2022 hydroxychloroquine sulfate ( HYDROXYCHLOROQUINE [...] above: Take 1 capsule by mo uth twice daily. VIT/IRON FUMARATE/FA ( VITAMIN ORAL) [...] 1 tablet by kristal th once daily. simvastatin 20 mg oral tablet (20 sources) HMG-CoA Reductase Inhibitor Start: 03-10-2022 End: 04-26-2023 simvastatin (ZOCOR) 20 mg tablet Problems Active Problems Problem Classification Problem Date Documented Date Episodic/Chronic Anxiety disorders (3 sources) Anxiety; Translations: [Anxiety disorder, unspecified] Onset: 06-09-2023 06-09-2023 Chronic Cardiac dysrhythmias (4 sources) Postural orthostatic tachycardia syndrome ; Translations: [POTS (postural orthostatic tachycardia syndrome)] Onset: 06-09-2023 Chronic Cardiac dysrhythmias (7 sources) Tachycardia, unspecified; Translations: [Tachycardia] Onset: 10-15-2021 Resolved: 11-26-2021 Episodic Conditions associated with dizziness or vertigo (3 sources) Dizziness; Translations: [Dizziness and giddiness] Onset: 06-01-2023 06-01-2023 Episodic Deficiency and other anemia (2 sources) Anemia of chronic disease; Translations: [Anemia in other chronic diseases classified elsewhere] Chronic Diabetes mellitus without complication (8 sources) Increased glucose level; Translations: [Other abnormal glucose] Onset: 03-09-2022 Episodic Diseases of mouth; excluding dental (2 sources) Oral lesion; Translations: [Unspecified lesions of oral mucosa] Onset: 07-06-2023 07-06-2023 Episodic Disorders of lipid metabolism (20 sources) Hyperlipidemia; Translations: [Hyperlipidemia, unspecified] Onset: 05-31-2014 05-31-2014 Chronic Esophageal disorders (2 sources) Laryngopharyngeal reflux; Translations: [Gastro-esophageal reflux disease without esophagitis] Onset: 07-06-2023 07-06-2023 Chronic Essential hypertension (7 sources) Essential hypertension; Translations: [Essential (primary) hypertension] Onset: 06-09-2023 06-09-2023 Chronic Fever of unknown origin (1 source) Pyrexia of unknown origin; Translations: [Fever, unspecified] 04-26-2023 Episodic Headache; including migraine (3 sources) Headache; Translations: [Nonintractable episodic headache] Onset: 06-01-2023 06-01-2023 Episodic Malaise and fatigue (9 sources) Malaise and fatigue; Translations: [Chronic fatigue, unspecified] Onset: 06-10-2023 Chronic Menstrual disorders (15 sources) Excessive and frequent menstruation with irregular cycle; Translations: [Menometrorrhagia] Onset: 09-24-2022 Chronic Mood disorders (20 sources) Recurrent depression; Translations: [Major depressive disorder, recurrent, unspecified] Onset: 06-09-2023 06-18-2014 Chronic Nutritional deficiencies (20 sources) Vitamin D deficiency; Translations: [Vitamin D deficiency, unspecified] Onset: 03-06-2021 Chronic Osteoarthritis (20 sources) Degenerative joint disease involving multiple joints; 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] Onset: 03-05-2021 Chronic Osteoporosis (19 sources) 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; Translations: [Other osteoporosis without current pathological fracture] Onset: 02-04-2023 02-04-2023 Chronic Other aftercare (3 sources) Drug therapy status; Translations: [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 correction 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] Episodic Other aftercare (1 source) Polypharmacy ; Translations: [Other director long term care (current) drug therapy] Episodic Other circulatory disease (19 sources) Raynaud's disease; Translations: [Raynaud's syndrome without gangrene] Onset: 02-04-2023 02-04-2023 Chronic Other connective tissue disease (1 source) Pain in left foot; Translations: [Pain in left foot] Onset: 09-14-2018 Episodic Other connective tissue disease (1 source) Pain in right foot; Translations: [Pain in right foot] Onset: 09-14-2018 Episodic Other connective tissue disease (20 sources) Fibromyalgia; Translations: [Fibromyalgia] Onset: 10-24-2021 Episodic Other connective tissue disease (20 sources) Paraparesis; Translations: [Other symptoms and signs involving the musculoskeletal system] Onset: 03-05-2021 03-05-2021 Episodic Other connective tissue disease (2 sources) Enthesopathy of hip region; Translations: [Other specified enthesopathies of unspecified lower limb, excluding foot] Onset: 07-06-2023 07-06-2023 Episodic Other connective tissue disease (2 sources) Muscle pain; Translations: [Myalgia, unspecified site] Onset: 07-06-2023 07-06-2023 Episodic Other inflammatory condition of skin (20 [...] pain] 04-26-2023 Chronic Other nervous system disorders (7 sources) Disorder of autonomic nervous system; Translations: [Disorder of the autonomic nervous system, unspecified] Onset: 06-01-2023 06-09-2023 Chronic Other nervous system disorders (2 sources) Disorder of the autonomic nervous system, unspecified; Translations: [Disorder of the autonomic nervous system, unspecified] Onset: 06-09-2023 Chronic Other nervous system disorders (1 source) Other chronic pain; Translations: [Other chronic pain] Onset: 05-26-2023 Chronic Other nervous system disorders (2 sources) Skin sensation disturbance; Translations: [Unspecified disturbances of skin sensation] Onset: 07-06-2023 07-06-2023 Episodic Other non-traumatic joint disorders (20 sources) Hip pain; Translations: [Pain in unspecified hip] Onset: 07-06-2023 06-18-2014 Episodic Other nutritional; endocrine; and metabolic [...] [Obesity, Class III, BMI 40-49.9 (morbid obesity) ([facility])] Onset: 09-07-2022 Chronic Other upper respiratory disease (2 sources) Chronic pharyngolaryngitis; Translations: [Chronic laryngitis] Onset: 07-06-2023 07-06-2023 Chronic Ovarian cyst (1 source) Unspecified ovarian [...] not elsewhere classified] Onset: 09-13-2015 09-13-2015 Chronic Spondylosis; intervertebral disc disorders; other back problems (20 sources) Chronic low back pain; Translations: [Lumbago with sciatica, left side] Onset: 05-31-2014 Episodic Substance-related disorders (20 sources) Tobacco user; Translations: [Nicotine dependence, unspecified, uncomplicated] Onset: 07-06-2023 06-18-2014 Chronic Systemic lupus erythematosus and connective tissue disorders (20 sources) Systemic lupus erythematosus; Translations: [Other organ or system involvement in systemic lupus erythematosus] Onset: 10-24-2021 Chronic Unclassified (1 source) R07.81 - Pleurodynia; Translations: [R07.81 - Pleurodynia] Onset: 09-17-2018 Unclassified (1 source) Established Patient Follow-Up Onset: 04-26-2023 Viral infection (10 sources) Cytomegaloviral disease, unspecified; 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] Onset: 09-11-2021 Resolved: 11-26-2021 Episodic Past or Other Problems Problem Classification Problem [...] Onset: 03-11-2022 Episodic Deficiency and other anemia (12 sources) Anemia; Translations: [Anemia, unspecified] Onset: 03-11-2022 [...] (20 sources) Drug therapy finding; Translations: [Other correction (current) drug therapy] Onset: 03-05-2021 Episodic Other aftercare (20 sources) H/O: high risk medication; Translations: [Other director long term care (current) drug therapy] Onset: 06-15-2022 06-15-2022 Episodic Other aftercare (1 source) Other correction (current) drug therapy; Translations: [OTH IRONER 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 THERAPY] Onset: 03-23-2022 Episodic Other aftercare (19 sources) Long-term 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 systemic steroid; 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] Onset: 02-04-2023 02-04-2023 Episodic Other connective tissue disease (20 sources) Pain in toe; Translations: [Pain in right toe(s)] Onset: 03-05-2021 Episodic Other connective tissue disease (1 [...] Onset: 03-23-2022 Episodic Other non-traumatic joint disorders (19 sources) Bilateral wrist pain; Translations: [Pain in right wrist] Onset: 02-04-2023 02-04-2023 Episodic Other screening for suspected conditions (not mental disorders or infectious disease) (18 sources) Elevated C-reactive protein; Translations: [Elevated C-reactive protein (CRP)] Onset: 10-19-2022 Episodic Other skin disorders (20 sources) Eruption; [...] Translations: [FLUSHING] Onset: 10-15-2021 Resolved: 11-26-2021 Episodic Results Test Name Value Interpretation Reference Range Facility CNPNon 06-12-2023 CNPN Normal [facility] 25(OH)D3 [facility] 25-hydroxyvitamin D3 [Mass/Vol] 17.3 ng/mL Low 31.0-80.0 [facility] Comment on above: Order Comment: Semaj cortés Type: BLOOD SPECIMENOrdering Facility: [facility] Address: [address] [place] [address] Result Comment: Clas sification of 25 [place] Vitamin D status:Deficiency/Insufficiency: < or = 30 ng/ml.Sufficiency/Optimal Levels: 31-80 ng/mLToxicity: > 100 ng/mL.Test performed by chemiluminescent immunoassay. Performed By: #### 1 [id number] ####[facility]CL[facility] [id number] [place] [address] [place] CBC panel Auto (Bld)on 06-10 Erythrocyte distribution width (RBC) [Ratio] 14.5 % Normal 11.5-15.0 [facility] Comment on above: Order Comment: Semaj cortés Type: BLOOD SPECIMENOrdering Facility: [facility] Address: [address] [place] [address] Performed By: #### 5 [id number] ####[facility] LABCLIA [id number] [place] [address] Hematocrit (Bld) [Volume fraction] 43.1 % Normal 36.0-46.0 [facility] Comment on above: Order Comment: Speci men Type: BLOOD SPECIMENOrdering Facility: [facility] Address: [address] [place] [address] Performed By: #### 5 [id number] ####[facility] LABCLIA [id number] [place] [address] Hemoglobin (Bld) [Mass/Vol] 13.9 g/dL Normal 11.5-15.5 [facility] Comment on above: Order Comment: Speci men Type: BLOOD SPECIMENOrdering Facility: [facility] Address: [address] [place] [address] Performed By: #### 5 [id number] ####[facility] LABCLIA [id number] [place] [address] MCH (RBC) [Entitic mass] 30.6 pg Normal 26.0-34.0 [facility] [facility] Comment on above: Order Comment: Speci men Type: BLOOD SPECIMENOrdering Facility: [facility] Address: [address] [place] [address] Performed By: #### 5 8410-2 ####[facility] LABCLIA [id number] [place] [address] MCHC (RBC) [Mass/Vol] 32.3 g/dL Normal 30.5-36.0 [facility] Comment on above: Order Comment: Speci men Type: BLOOD SPECIMENOrdering Facility: [facility] Address: [address] [place] [address] Performed By: #### 5 8410-2 ####[facility] LABCLIA [id number] [place] [address] MCV (RBC) [Entitic vol] 94.9 fL Normal 80.0-100.0 [facility] Comment on above: Order Comment: Speci men Type: BLOOD SPECIMENOrdering Facility: [facility] Address: [address] [place] [address] Performed By: #### 5 8410-2 ####[facility] LABCLIA [id number] [place] [address] Nucleated RBC (Bld) [#/Vol] 10*3/uL Normal <0.01 [facility] Comment on above: Order Comment: Speci men Type: BLOOD SPECIMENOrdering Facility: [facility] Address: [address] [place] [address] Performed By: #### 5 8410-2 ####[facility] LABCLIA [id number] [place] [address] Platelet mean volume (Bld) [Entitic vol] 9.5 fL Normal 9.0-12.7 [facility] Comment on above: Order Comment: Speci men Type: BLOOD SPECIMENOrdering Facility: [facility] Address: [address] [place] [address] Performed By: #### 5 8410-2 ####[facility] LABCLIA [id number] [place] [address] Platelets (Bld) [#/Vol] 320 10*3/uL Normal 150-400 [facility] Comment on above: Order Comment: Speci men Type: BLOOD SPECIMENOrdering Facility: [facility] Address: [address] [place] [address] Performed By: #### 5 8410-2 ####[facility] LABCLIA [id number] [place] [address] RBC (Bld) [#/Vol] 4.54 10*6/uL Normal 3.90-5.20 [facility] Comment on above: Order Comment: Speci men Type: BLOOD SPECIMENOrdering Facility: [facility] Address: [address] [place] [address] Performed By: #### 5 8410-2 ####[facility] LABCLIA [id number] [place] [address] WBC (Bld) [#/Vol] 15.15 10*3/uL High 3.70-11.00 [facility] Comment on above: Order Comment: Speci men Type: BLOOD SPECIMENOrdering Facility: [facility] Address: [address] [place] [address] Performed By: #### 5 8410-2 ####[facility] LABCLIA [id number] [place] [address] CNNURSEon 06-10-2023 CNNURSE Normal [facility] CNOVSPon 06-10-2023 CNOVSP Normal [facility] CRP SerPl-mCncon 06-10-2023 CRP [Mass/Vol] mg/L Normal <0.9 [facility] Comment on above: Order Comment: Speci men Type: BLOOD SPECIMENOrdering Facility: [facility] Address: [address] [place] [address] Performed By: #### 1 988-5 ####[facility] LABCLIA [id number] [address] [address] [facility] Comprehensive metabolic 2000 panelon 06-10-2023 Albumin [Mass/Vol] 4.1 g/dL Normal 3.9-4.9 [facility] Comment on above: Order Comment: Speci men Type: BLOOD SPECIMENOrdering Facility: [facility] Address: [address] [place] [address] Performed By: #### 2 4323-8 ####[facility] LABCLIA [id number] [place] [address] ALP [Catalytic activity/Vol] 72 U/L Normal 34-123 [facility] Comment on above: Order Comment: Speci men Type: BLOOD SPECIMENOrdering Facility: [facility] Address: [address] [place] [address] Performed By: #### 2 4323-8 ####[facility] LABCLIA [id number] [place] [address] ALT [Catalytic activity/Vol] 22 U/L Normal 7-38 [facility] Comment on above: Order Comment: Speci men Type: BLOOD SPECIMENOrdering Facility: [facility] Address: [address] [place] [address] Performed By: #### 2 4323-8 ####[facility] LABCLIA [id number] [place] [address] Anion gap [Moles/Vol] 10 mmol/L Normal 9-18 [facility] Comment on above: Order Comment: Speci men Type: BLOOD SPECIMENOrdering Facility: [facility] Address: [address] [place] [address] Performed By: #### 2 4323-8 ####[facility] LABCLIA [id number] [place] [address] AST [Catalytic activity/Vol] 9 U/L Low 13-35 [facility] Comment on above: Order Comment: Speci men Type: BLOOD SPECIMENOrdering Facility: [facility] Address: [address] [place] [address] Performed By: #### 2 4323-8 ####[facility] LABCLIA [id number] [place] [address] Bilirubin [Mass/Vol] 0.2 mg/dL Normal 0.2-1.3 [facility] Comment on above: Order Comment: Speci men Type: BLOOD SPECIMENOrdering Facility: [facility] Address: [address] [place] [address] Performed By: #### 2 4323-8 ####[facility] LABCLIA [id number] [place] [address] Calcium [Mass/Vol] 9.8 mg/dL Normal 8.5-10.2 [facility] Comment on above: Order Comment: Speci men Type: BLOOD SPECIMENOrdering Facility: [facility] Address: [address] [place] [address] Performed By: #### 2 4323-8 ####[facility] LABCLIA [id number] [place] [address] Chloride [Moles/Vol] 107 mmol/L High 97-105 [facility] Comment on above: Order Comment: Speci men Type: BLOOD SPECIMENOrdering Facility: [facility] Address: [address] [place] [address] Performed By: #### 2 4323-8 ####[facility] LABCLIA [id number] [place] [address] CO2 [Moles/Vol] 24 mmol/L Normal 22-30 [facility] Comment on above: Order Comment: Speci men Type: BLOOD SPECIMENOrdering Facility: [facility] Address: [address] [place] [address] Performed By: #### 2 4323-8 ####[facility] LABCLIA [id number] [place] [address] Creatinine [Mass/Vol] 0.80 mg/dL Normal 0.58-0.96 [facility] Comment on above: Order Comment: Speci men Type: BLOOD SPECIMENOrdering Facility: [facility] Address: [address] [place] [address] Performed By: #### 2 4323-8 ####[facility] LABCLIA [id number] [place] [address] Creatinine and Glomerular filtration rate.predicted panel (S/P/Bld) 94 mL/min/1.73m??? Normal >=60 [facility] Comment on above: Order Comment: Speci men Type: BLOOD SPECIMENOrdering Facility: [facility] Address: [address] [place] [address] Result Comment: Erin mated Glomerular Filtration Rate [...] actual GFR. Performed By: #### 2 4323-8 ####[facility] LABCLIA [id number] [place] [address] Glucose [Mass/Vol] 98 mg/dL Normal 74-99 [facility] Comment on above: Order Comment: Speci men Type: BLOOD SPECIMENOrdering Facility: [facility] Address: [address] [place], [place] [address] Result Comment: The [place] Diabetes [employer] (ADA) provides guidance for cutoff [...] Standards of Medical Care in Diabetes 2016, [place] [employer]. Diabetes Care. 2016.39(Suppl 1). Performed By: #### 2 4323-8 ####[facility] LABCLIA [id number] [place] [address] Potassium [Moles/Vol] 3.6 mmol/L Low 3.7-5.1 [facility] Comment on above: Order Comment: Speci men Type: BLOOD SPECIMENOrdering Facility: [facility] Address: [address] [place] [address] Performed By: #### 2 4323-8 ####[facility] LABCLIA [id number] [place] [address] Protein [Mass/Vol] 7.0 g/dL Normal 6.3-8.0 [facility] Comment on above: Order Comment: Speci men Type: BLOOD SPECIMENOrdering Facility: [facility] Address: [address] [place] [address] Performed By: #### 2 4323-8 ####[facility] LABCLIA [id number] [place] [address] Sodium [Moles/Vol] 141 mmol/L Normal 136-144 [facility] Comment on above: Order Comment: Speci men Type: BLOOD SPECIMENOrdering Facility: [facility] Address: [address] [place] [address] Performed By: #### 2 4323-8 ####[facility] LABCLIA [id number] [place] [address] Urea nitrogen [Mass/Vol] 17 mg/dL Normal 7-21 [facility] Comment on above: Order Comment: Speci men Type: BLOOD SPECIMENOrdering Facility: [facility] Address: [address] [place] [address] Performed By: #### 2 4323-8 ####[facility] LABCLIA [id number] [place] [address] ESR Westergren method (Bld) [Velocity]on 06-10-2023 ESR (Bld) [Velocity] 28 mm/h High 0-20 [facility] Comment on above: Order Comment: Speci men Type: BLOOD SPECIMENOrdering Facility: [facility] Address: [address] [place] [address] Performed By: #### 4 537-7 ####[facility] LABCLIA [id number] [place] [address] [place] CBC W Auto Differential pane l (Bld)on 06-03-2023 Basophils (Bld) [#/Vol] 0.05 10*3/uL Normal <0.11 [facility] Comment on above: Order Comment: Speci men Type: BLOOD SPECIMENOrdering Facility: [facility] Address: [address] [place] [address] Performed By: #### 5 7021-8 ####[facility] LABCLIA [id number] [place] [address] Basophils/100 WBC (Bld) 0.4 % Normal [facility] Comment on above: Order Comment: Speci men Type: BLOOD SPECIMENOrdering Facility: [facility] Address: [address] [place] [address] Performed By: #### 5 7021-8 ####[facility] LABCLIA [id number] [place] [address] Differential cell count method Nom (Bld) Auto Normal [facility] Comment on above: Order Comment: Speci men Type: BLOOD SPECIMENOrdering Facility: [facility] Address: [address] [place] [address] Performed By: #### 5 7021-8 ####[facility] LABCLIA [id number] [place] [address] Eosinophils (Bld) [#/Vol] 0.14 10*3/uL Normal <0.46 [facility] Comment on above: Order Comment: Speci men Type: BLOOD SPECIMENOrdering Facility: [facility] Address: [address] [place] [address] Performed By: #### 5 7021-8 ####[facility] LABCLIA [id number] [place] [address] Eosinophils/100 WBC (Bld) 1.1 % Normal [facility] Comment on above: Order Comment: Speci men Type: BLOOD SPECIMENOrdering Facility: [facility] Address: [address] [place] [address] Performed By: #### 5 7021-8 ####[facility] LABCLIA [id number] [place] [address] Erythrocyte distribution width (RBC) [Ratio] 14.5 % Normal 11.5-15.0 [facility] Comment on above: Order Comment: Speci men Type: BLOOD SPECIMENOrdering Facility: [facility] Address: [address] [place] [address] Performed By: #### 5 7021-8 ####[facility] LABIA [id number] [place] [address] Hematocrit (Bld) [Volume fraction] 40.5 % Normal 36.0-46.0 [facility] Comment on above: Order Comment: Speci men Type: BLOOD SPECIMENOrdering Facility: [facility] Address: [address] [place] [address] Performed By: #### 5 7021-8 ####[facility] LABCLIA [id number] [place] [address] Hemoglobin (Bld) [Mass/Vol] 13.1 g/dL Normal 11.5-15.5 [facility] Comment on above: Order Comment: Speci men Type: BLOOD SPECIMENOrdering Facility: [facility] Address: [address] [place] [address] Performed By: #### 5 7021-8 ####[facility] LABCLIA [id number] [place] [address] Immature granulocytes (Bld) [#/Vol] 0.20 10*3/uL High <0.10 [facility] Comment on above: Order Comment: Speci men Type: BLOOD SPECIMENOrdering Facility: [facility] Address: [address] [place] [address] Performed By: #### 5 7021-8 ####[facility] LABCLIA [id number] [place] [address] Immature granulocytes/100 WBC (Bld) 1.6 % Normal [facility] Comment on above: Order Comment: Speci men Type: BLOOD SPECIMENOrdering Facility: [facility] Address: [address] [place] [address] Performed By: #### 5 7021-8 ####[facility] LABCLIA [id number] [place] [address] Lymphocytes (Bld) [#/Vol] 4.13 10*3/uL High 1.00-4.00 [facility] Comment on above: Order Comment: Speci men Type: BLOOD SPECIMENOrdering Facility: [facility] Address: [address] [place] [address] Performed By: #### 5 7021-8 ####[facility] LABCLIA [id number] [place] [address] Lymphocytes/100 WBC (Bld) 32.1 % Normal [facility] Comment on above: Order Comment: Speci men Type: BLOOD SPECIMENOrdering Facility: [facility] Address: [address] [place] [address] Performed By: #### 5 7021-8 ####[facility] LABCLIA [id number] [place] [address] MCH (RBC) [Entitic mass] 30.8 pg Normal 26.0-34.0 [facility] Comment on above: Order Comment: Speci men Type: BLOOD SPECIMENOrdering Facility: [facility] Address: [address] [place] [address] Performed By: #### 5 7021-8 ####[facility] LABCLIA [id number] [place] [address] MCHC (RBC) [Mass/Vol] 32.3 g/dL Normal 30.5-36.0 [facility] Comment on above: Order Comment: Speci men Type: BLOOD SPECIMENOrdering Facility: [facility] Address: [address] [place] [address] Performed By: #### 5 7021-8 ####[facility] LABIA [id number] [place] [address] MCV (RBC) [Entitic vol] 95.1 fL Normal 80.0-100.0 [facility] Comment on above: Order Comment: Speci men Type: BLOOD SPECIMENOrdering Facility: [facility] Address: [address] [place] [address] Performed By: #### 5 7021-8 ####[facility] LABCLIA [id number] [place] [address] Monocytes (Bld) [#/Vol] 0.79 10*3/uL Normal <0.87 [facility] Comment on above: Order Comment: Speci men Type: BLOOD SPECIMENOrdering Facility: [facility] Address: [address] [place] [address] Performed By: #### 5 7021-8 ####[facility] LABCLIA [id number] [place] [address] Monocytes/100 WBC (Bld) 6.1 % Normal [facility] Comment on above: Order Comment: Speci men Type: BLOOD SPECIMENOrdering Facility: [facility] Address: [address] [place] [address] Performed By: #### 5 7021-8 ####[facility] LABCLIA [id number] [place] [address] Neutrophils (Bld) [#/Vol] 7.56 10*3/uL High 1.45-7.50 [facility] Comment on above: Order Comment: Speci men Type: BLOOD SPECIMENOrdering Facility: [facility] Address: [address] [place] [address] Performed By: #### 5 7021-8 ####[facility] LABCLIA [id number] [place] [address] Neutrophils/100 WBC (Bld) 58.7 % Normal [facility] Comment on above: Order Comment: Speci men Type: BLOOD SPECIMENOrdering Facility: [facility] Address: [address] [place] [address] Performed By: #### 5 7021-8 ####[facility] LABCLIA [id number] [place] [address] Nucleated RBC (Bld) [#/Vol] 10*3/uL Normal <0.01 [facility] Comment on above: Order Comment: Speci men Type: BLOOD SPECIMENOrdering Facility: [facility] Address: [address] [place] [address] Performed By: #### 5 7021-8 ####[facility] LABIA [id number] [place] [address] Nucleated RBC/100 WBC (Bld) [Ratio] 0.0 /100 WBC Normal [facility] Comment on above: Order Comment: Speci men Type: BLOOD SPECIMENOrdering Facility: [facility] Address: [address] [place] [address] Performed By: #### 5 7021-8 ####[facility] LABCLIA [id number] [place] [address] Platelet mean volume (Bld) [Entitic vol] 9.7 fL Normal 9.0-12.7 [facility] Comment on above: Order Comment: Speci men Type: BLOOD SPECIMENOrdering Facility: [facility] Address: [address] [place] [address] Performed By: #### 5 7021-8 ####[facility] LABCLIA [id number] [place] [address] Platelets (Bld) [#/Vol] 261 10*3/uL Normal 150-400 [facility] Comment on above: Order Comment: Speci men Type: BLOOD SPECIMENOrdering Facility: [facility] Address: [address] [place] [address] Performed By: #### 5 7021-8 ####[facility] LABCLIA [id number] [place] [address] RBC (Bld) [#/Vol] 4.26 10*6/uL Normal 3.90-5.20 [facility] Comment on above: Order Comment: Speci men Type: BLOOD SPECIMENOrdering Facility: [facility] Address: [address] [place] [address] Performed By: #### 5 7021-8 ####[facility] LABCLIA [id number] [place] [address] WBC (Bld) [#/Vol] 12.87 10*3/uL High 3.70-11.00 [facility] Comment on above: Order Comment: Speci men Type: BLOOD SPECIMENOrdering Facility: [facility] Address: [address] [place] [address] Performed By: #### 5 7021-8 ####[facility] LABCLIA [id number] [place] [address] Comprehensive metabolic 2000 panelon 06-03-2023 Albumin [Mass/Vol] 4.0 g/dL Normal 3.9-4.9 [facility] Comment on above: Order Comment: Speci men Type: BLOOD SPECIMENOrdering Facility: [facility] Address: [address] [place] [address] Performed By: #### 2 4323-8 ####[facility] LABCLIA [id number] [place] [address] ALP [Catalytic activity/Vol] 73 U/L Normal 34-123 [facility] Comment on above: Order Comment: Speci men Type: BLOOD SPECIMENOrdering Facility: [facility] Address: [address] [place] [address] Performed By: #### 2 4323-8 ####[facility] LABCLIA [id number] [place] [address] ALT [Catalytic activity/Vol] 21 U/L Normal 7-38 [facility] Comment on above: Order Comment: Speci men Type: BLOOD SPECIMENOrdering Facility: [facility] Address: [address] [place] [address] Performed By: #### 2 4323-8 ####[facility] LABCLIA [id number] [place] [address] Anion gap [Moles/Vol] 10 mmol/L Normal 9-18 [facility] Comment on above: Order Comment: Speci men Type: BLOOD SPECIMENOrdering Facility: [facility] Address: [address] [place] [address] Performed By: #### 2 4323-8 ####[facility] LABCLIA [id number] [place] [address] AST [Catalytic activity/Vol] 10 U/L Low 13-35 [facility] Comment on above: Order Comment: Speci men Type: BLOOD SPECIMENOrdering Facility: [facility] Address: [address] [place] [address] Performed By: #### 2 4323-8 ####[facility] LABCLIA [id number] [place] [address] Bilirubin [Mass/Vol] 0.2 mg/dL Normal 0.2-1.3 [facility] Comment on above: Order Comment: Speci men Type: BLOOD SPECIMENOrdering Facility: [facility] Address: [address] [place] [address] Performed By: #### 2 4323-8 ####[facility] LABCLIA [id number] [place] [address] Calcium [Mass/Vol] 9.6 mg/dL Normal 8.5-10.2 [facility] Comment on above: Order Comment: Speci men Type: BLOOD SPECIMENOrdering Facility: [facility] Address: [address] [place] [address] Performed By: #### 2 4323-8 ####[facility] LABCLIA [id number] [place] [address] Chloride [Moles/Vol] 108 mmol/L High 97-105 [facility] Comment on above: Order Comment: Speci men Type: BLOOD SPECIMENOrdering Facility: [facility] Address: [address] [place] [address] Performed By: #### 2 4323-8 ####[facility] LABCLIA [id number] [place] [address] CO2 [Moles/Vol] 24 mmol/L Normal 22-30 [facility] Comment on above: Order Comment: Speci men Type: BLOOD SPECIMENOrdering Facility: [facility] Address: [address] [place] [address] Performed By: #### 2 4323-8 ####[facility] LABCLIA [id number] [place] [address] Creatinine [Mass/Vol] 0.70 mg/dL Normal 0.58-0.96 [facility] Comment on above: Order Comment: Speci men Type: BLOOD SPECIMENOrdering Facility: [facility] Address: [address] [place] [address] Performed By: #### 2 4323-8 ####[facility] LABCLIA [id number] [place] [address] Creatinine and Glomerular filtration rate.predicted panel (S/P/Bld) 111 mL/min/1.73m??? Normal >=60 [facility] Comment on above: Order Comment: Semaj cortés Type: BLOOD SPECIMENOrdering Facility: [facility] Address: [address] [place] [address] Result Comment: Erin mated Glomerular Filtration Rate [...] actual GFR. Performed By: #### 2 4323-8 ####[facility] LABCLIA [id number] [place] [address] Glucose [Mass/Vol] 106 mg/dL High 74-99 [facility] Comment on above: Order Comment: Semaj cortés Type: BLOOD SPECIMENOrdering Facility: [facility] Address: [address] [place] [address] Result Comment: The [place] [employer] (ADA) provides guidance for cutoff [...] Standards of Medical Care in Diabetes 2016, [place] [employer]. Diabetes Care. 2016.39(Suppl 1). Performed By: #### 2 4323-8 ####[facility] LABCLIA [id number] [place] [address] Potassium [Moles/Vol] 4.0 mmol/L Normal 3.7-5.1 [facility] Comment on above: Order Comment: Speci men Type: BLOOD SPECIMENOrdering Facility: [facility] Address: [address] [place] [address] Performed By: #### 2 4323-8 ####[facility] LABCLIA [id number] [place] [address] Protein [Mass/Vol] 6.8 g/dL Normal 6.3-8.0 [facility] Comment on above: Order Comment: Speci men Type: BLOOD SPECIMENOrdering Facility: [facility] Address: [address] [place] [address] Performed By: #### 2 4323-8 ####[facility] LABCLIA [id number] [place] [address] Sodium [Moles/Vol] 142 mmol/L Normal 136-144 [facility] Comment on above: Order Comment: Speci men Type: BLOOD SPECIMENOrdering Facility: [facility] Address: [address] [place] [address] Performed By: #### 2 4323-8 ####[facility] LABCLIA [id number] [place] [address] Urea nitrogen [Mass/Vol] 12 mg/dL Normal 7-21 [facility] Comment on above: Order Comment: Speci men Type: BLOOD SPECIMENOrdering Facility: [facility] Address: [address] [place] [address] Performed By: #### 2 4323-8 ####[facility] LABCLIA [id number] [place] [address] ESR Westergren method (Bld) [Velocity]on 06-03-2023 ESR (Bld) [Velocity] 35 mm/h High 0-20 [facility] Comment on above: Order Comment: Speci men Type: BLOOD SPECIMENOrdering Facility: [facility] Address: [address] [place] [address] Performed By: #### 4 537-7 ####[facility] LABCLIA [id number] [place] [address] [place] [facility] Ferritin [Mass/Vol] 23.4 ng/mL Normal 14.7-205.1 [facility] Comment on above: Order Comment: Speci men Type: BLOOD SPECIMENOrdering Facility: [facility] Address: [address] [place] [address] Performed By: #### 5 0190-8, 9, 2275-08, 8 ####[facility] LABCLIA [id number] [place] [address] [place] Folate SerPl[facility] Folate [Mass/Vol] 8.2 ng/mL Normal >4.7 [facility] Comment on above: Order Comment: Speci men Type: BLOOD SPECIMENOrdering Facility: [facility] Address: [address] [place] [address] Performed By: #### 5 0190-8, 9, 2275-08, 2283-12 ####[facility] [id number] [place] [address] [place] Iron and Iron binding capaci ty panelon 06-03-2023 Iron [Mass/Vol] 67 ug/dL Normal 41-186 [facility] Comment on above: Order Comment: Speci men Type: BLOOD SPECIMENOrdering Facility: [facility] Address: [address] [place] [address] Performed By: #### 5 0190-8, 9, 2275-08, 2283-12 ####[facility] [id number] [place] [address] [place] Iron binding capacity [Mass/Vol] 395 ug/dL High 232-386 [facility] Comment on above: Order Comment: Speci men Type: BLOOD SPECIMENOrdering Facility: [facility] Address: [address] [place] [id number] Performed By: #### 5 0190-8, 2132-01, 2275-08, 2283-12 ####[facility] [id number] [place] [id number] [place] Iron/TIBC [Molar ratio] 17.0 % Normal 15.0-57.0 [facility] Comment on above: Order Comment: Speci men Type: BLOOD SPECIMENOrdering Facility: [facility] Address: [address] [place] [address] Performed By: #### 5 0190-8, 2132-01, 2275-08, 2283-12 ####[facility] LABIA [id number] [place] [id number] [place] Vit B12 [facility] 024 Cobalamin (Vitamin B12) [Mass/Vol] 428 pg/mL Normal 232-1245 [facility] Comment on above: Order Comment: Speci men Type: BLOOD SPECIMENOrdering Facility: [facility] Address: [address] [place] [id number] Performed By: #### 5 0190-8, 2132-01, 2275-08, 2283-12 ####[facility] LABIA [id number] [place] [id number] [place] CNNURSEon 05-10-2023 CNNURSE Normal [facility] XR CERVICAL SPINE COMPLETE 4 -5 VIEWSon [...] Normal Not Available CNPNon 04-22-2023 CNPN Normal [facility] CNNURSEon 04-16-2023 CNNURSE Normal [facility] CNOVSPon 04-16-2023 CNOVSP Normal [facility] CBC W Auto Differential pane l (Bld)on 04-09-2023 Basophils (Bld) [#/Vol] 0.05 10*3/uL Normal <0.11 [facility] Comment on above: Order Comment: Speci moo Type: BLOOD SPECIMENOrdering Facility: [facility] Address: [address] [place] [address] Performed By: #### 5 7021-8 ####[facility] LABCLIA [id number] [place] [address] Basophils/100 WBC (Bld) 0.5 % Normal [facility] Comment on above: Order Comment: Speci men Type: BLOOD SPECIMENOrdering Facility: [facility] Address: [address] [place] [address] Performed By: #### 5 7021-8 ####[facility] LABCLIA [id number] [place] [address] Differential cell count method Nom (Bld) Auto Normal [facility] Comment on above: Order Comment: Speci men Type: BLOOD SPECIMENOrdering Facility: [facility] Address: [address] [place] [address] Performed By: #### 5 7021-8 ####[facility] LABCLIA [id number] [place] [address] Eosinophils (Bld) [#/Vol] 0.09 10*3/uL Normal <0.46 [facility] Comment on above: Order Comment: Speci men Type: BLOOD SPECIMENOrdering Facility: [facility] Address: [address] [place] [address] Performed By: #### 5 7021-8 ####[facility] LABCLIA [id number] [place] [address] Eosinophils/100 WBC (Bld) 0.9 % Normal [facility] Comment on above: Order Comment: Speci men Type: BLOOD SPECIMENOrdering Facility: [facility] Address: [address] [place] [address] Performed By: #### 5 7021-8 ####[facility] LABCLIA [id number] [place] [address] Erythrocyte distribution width (RBC) [Ratio] 14.8 % Normal 11.5-15.0 [facility] Comment on above: Order Comment: Speci men Type: BLOOD SPECIMENOrdering Facility: [facility] Address: [address] [place] [address] Performed By: #### 5 7021-8 ####[facility] LABCLIA [id number] [place] [address] Hematocrit (Bld) [Volume fraction] 41.1 % Normal 36.0-46.0 [facility] Comment on above: Order Comment: Speci men Type: BLOOD SPECIMENOrdering Facility: [facility] Address: [address] [place] [address] Performed By: #### 5 7021-8 ####[facility] LABCLIA [id number] [place] [address] Hemoglobin (Bld) [Mass/Vol] 13.1 g/dL Normal 11.5-15.5 [facility] Comment on above: Order Comment: Speci men Type: BLOOD SPECIMENOrdering Facility: [facility] Address: [address] [place] [address] Performed By: #### 5 7021-8 ####[facility] LABCLIA [id number] [place] [address] Immature granulocytes (Bld) [#/Vol] 0.05 10*3/uL Normal <0.10 [facility] Comment on above: Order Comment: Speci men Type: BLOOD SPECIMENOrdering Facility: [facility] Address: [address] [place] [address] Performed By: #### 5 7021-8 ####[facility] LABCLIA [id number] [place] [address] Immature granulocytes/100 WBC (Bld) 0.5 % Normal [facility] Comment on above: Order Comment: Speci men Type: BLOOD SPECIMENOrdering Facility: [facility] Address: [address] [place] [address] Performed By: #### 5 7021-8 ####[facility] LABCLIA [id number] [place] [address] Lymphocytes (Bld) [#/Vol] 2.90 10*3/uL Normal 1.00-4.00 [facility] Comment on above: Order Comment: Speci men Type: BLOOD SPECIMENOrdering Facility: [facility] Address: [address] [place] [address] Performed By: #### 5 7021-8 ####[facility] LABCLIA [id number] [place] [address] Lymphocytes/100 WBC (Bld) 28.9 % Normal [facility] Comment on above: Order Comment: Speci men Type: BLOOD SPECIMENOrdering Facility: [facility] Address: [address] [place] [address] Performed By: #### 5 7021-8 ####[facility] LABCLIA [id number] [place] [address] MCH (RBC) [Entitic mass] 30.5 pg Normal 26.0-34.0 [facility] Comment on above: Order Comment: Speci men Type: BLOOD SPECIMENOrdering Facility: [facility] Address: [address] [place] [address] Performed By: #### 5 7021-8 ####[facility] LABIA [id number] [place] [address] MCHC (RBC) [Mass/Vol] 31.9 g/dL Normal 30.5-36.0 [facility] Comment on above: Order Comment: Speci men Type: BLOOD SPECIMENOrdering Facility: [facility] Address: [address] [place] [address] Performed By: #### 5 7021-8 ####[facility] LABCLIA [id number] [place] [address] MCV (RBC) [Entitic vol] 95.8 fL Normal 80.0-100.0 [facility] Comment on above: Order Comment: Speci men Type: BLOOD SPECIMENOrdering Facility: [facility] Address: [address] [place] [address] Performed By: #### 5 7021-8 ####[facility] LABIA [id number] [place] [address] Monocytes (Bld) [#/Vol] 0.54 10*3/uL Normal <0.87 [facility] Comment on above: Order Comment: Speci men Type: BLOOD SPECIMENOrdering Facility: [facility] Address: [address] [place] [address] Performed By: #### 5 7021-8 ####[facility] LABCLIA [id number] [place] [address] Monocytes/100 WBC (Bld) 5.4 % Normal [facility] Comment on above: Order Comment: Speci men Type: BLOOD SPECIMENOrdering Facility: [facility] Address: [address] [place] [address] Performed By: #### 5 7021-8 ####[facility] LABCLIA [id number] [place] [address] Neutrophils (Bld) [#/Vol] 6.41 10*3/uL Normal 1.45-7.50 [facility] Comment on above: Order Comment: Speci men Type: BLOOD SPECIMENOrdering Facility: [facility] Address: [address] [place] [address] Performed By: #### 5 7021-8 ####[facility] LABCLIA [id number] [place] [address] Neutrophils/100 WBC (Bld) 63.8 % Normal [facility] Comment on above: Order Comment: Speci men Type: BLOOD SPECIMENOrdering Facility: [facility] Address: [address] [place] [address] Performed By: #### 5 7021-8 ####[facility] LABCLIA [id number] [place] [address] Nucleated RBC (Bld) [#/Vol] 10*3/uL Normal <0.01 [facility] Comment on above: Order Comment: Speci men Type: BLOOD SPECIMENOrdering Facility: [facility] Address: [address] [place] [address] Performed By: #### 5 7021-8 ####[facility] LABCLIA [id number] [place] [address] Nucleated RBC/100 WBC (Bld) [Ratio] 0.0 /100 WBC Normal [facility] Comment on above: Order Comment: Speci men Type: BLOOD SPECIMENOrdering Facility: [facility] Address: [address] [place] [address] Performed By: #### 5 7021-8 ####[facility] LABCLIA [id number] [place] [address] Platelet mean volume (Bld) [Entitic vol] 9.4 fL Normal 9.0-12.7 [facility] Comment on above: Order Comment: Speci men Type: BLOOD SPECIMENOrdering Facility: [facility] Address: [address] [place] [address] Performed By: #### 5 7021-8 ####[facility] LABCLIA [id number] [place] [address] Platelets (Bld) [#/Vol] 290 10*3/uL Normal 150-400 [facility] Comment on above: Order Comment: Speci men Type: BLOOD SPECIMENOrdering Facility: [facility] Address: [address] [place] [address] Performed By: #### 5 7021-8 ####[facility] LABIA [id number] [place] [address] RBC (Bld) [#/Vol] 4.29 10*6/uL Normal 3.90-5.20 [facility] Comment on above: Order Comment: Speci men Type: BLOOD SPECIMENOrdering Facility: [facility] Address: [address] [place] [address] Performed By: #### 5 7021-8 ####[facility] LABCLIA [id number] [place] [address] WBC (Bld) [#/Vol] 10.04 10*3/uL Normal 3.70-11.00 [facility] Comment on above: Order Comment: Speci men Type: BLOOD SPECIMENOrdering Facility: [facility] Address: [address] [place] [address] Performed By: #### 5 7021-8 ####[facility] LABCLIA [id number] [place] [address] Comprehensive metabolic 2000 panelon 04-09-2023 Albumin [Mass/Vol] 4.1 g/dL Normal 3.9-4.9 [facility] Comment on above: Order Comment: Speci men Type: BLOOD SPECIMENOrdering Facility: [facility] Address: [address] [place] [address] Performed By: #### 2 4323-8 ####[facility] LABCLIA [id number] [place] [address] ALP [Catalytic activity/Vol] 74 U/L Normal 34-123 [facility] Comment on above: Order Comment: Speci men Type: BLOOD SPECIMENOrdering Facility: [facility] Address: [address] [place] [address] Performed By: #### 2 4323-8 ####[facility] LABCLIA [id number] [place] [address] ALT [Catalytic activity/Vol] 17 U/L Normal 7-38 [facility] Comment on above: Order Comment: Speci men Type: BLOOD SPECIMENOrdering Facility: [facility] Address: [address] [place] [address] Performed By: #### 2 4323-8 ####[facility] LABCLIA [id number] [place] [address] Anion gap [Moles/Vol] 12 mmol/L Normal 9-18 [facility] Comment on above: Order Comment: Speci men Type: BLOOD SPECIMENOrdering Facility: [facility] Address: [address] [place] [address] Performed By: #### 2 4323-8 ####[facility] LABCLIA [id number] [place] [address] AST [Catalytic activity/Vol] 11 U/L Low 13-35 [facility] Comment on above: Order Comment: Speci men Type: BLOOD SPECIMENOrdering Facility: [facility] Address: [address] [place] [address] Performed By: #### 2 4323-8 ####[facility] LABCLIA [id number] [place] [address] Bilirubin [Mass/Vol] 0.2 mg/dL Normal 0.2-1.3 [facility] Comment on above: Order Comment: Speci men Type: BLOOD SPECIMENOrdering Facility: [facility] Address: [address] [place] [address] Performed By: #### 2 4323-8 ####[facility] LABCLIA [id number] [place] [address] Calcium [Mass/Vol] 9.4 mg/dL Normal 8.5-10.2 [facility] Comment on above: Order Comment: Speci men Type: BLOOD SPECIMENOrdering Facility: [facility] Address: [address] [place] [address] Performed By: #### 2 4323-8 ####[facility] LABCLIA [id number] [place] [address] Chloride [Moles/Vol] 106 mmol/L High 97-105 [facility] Comment on above: Order Comment: Speci men Type: BLOOD SPECIMENOrdering Facility: [facility] Address: [address] [place] [address] Performed By: #### 2 4323-8 ####[facility] LABCLIA [id number] [place] [address] CO2 [Moles/Vol] 26 mmol/L Normal 22-30 [facility] Comment on above: Order Comment: Speci men Type: BLOOD SPECIMENOrdering Facility: [facility] Address: [address] [place] [address] Performed By: #### 2 4323-8 ####[facility] LABCLIA [id number] [place] [address] Creatinine [Mass/Vol] 0.89 mg/dL Normal 0.58-0.96 [facility] Comment on above: Order Comment: Semaj cortés Type: BLOOD SPECIMENOrdering Facility: [facility] Address: [address] [place] [address] Performed By: #### 2 4323-8 ####[facility] LABCLIA [id number] [place] [address] Creatinine and Glomerular filtration rate.predicted panel (S/P/Bld) 83 mL/min/1.73m??? Normal >=60 [facility] Comment on above: Order Comment: Semaj cortés Type: BLOOD SPECIMENOrdering Facility: [facility] Address: [address] [place] [address] Result Comment: Erin mated Glomerular Filtration Rate [...] actual GFR. Performed By: #### 2 4323-8 ####[facility] LABCLIA [id number] [place] [address] Glucose [Mass/Vol] 120 mg/dL High 74-99 [facility] Comment on above: Order Comment: Semaj cortés Type: BLOOD SPECIMENOrdering Facility: [facility] Address: [address] [place] [address] Result Comment: The [place] [employer] (ADA) provides guidance for cutoff [...] Standards of Medical Care in Diabetes 2016, [place] [employer]. Diabetes Care. 2016.39(Suppl 1). Performed By: #### 2 4323-8 ####[facility] LABCLIA [id number] [place] [address] Potassium [Moles/Vol] 3.7 mmol/L Normal 3.7-5.1 [facility] Comment on above: Order Comment: Speci men Type: BLOOD SPECIMENOrdering Facility: [facility] Address: [address] [place] [address] Performed By: #### 2 4323-8 ####[facility] LABCLIA [id number] [place] [address] Protein [Mass/Vol] 6.7 g/dL Normal 6.3-8.0 [facility] Comment on above: Order Comment: Speci men Type: BLOOD SPECIMENOrdering Facility: [facility] Address: [address] [place] [address] Performed By: #### 2 4323-8 ####[facility] LABCLIA [id number] [place] [address] Sodium [Moles/Vol] 144 mmol/L Normal 136-144 [facility] Comment on above: Order Comment: Speci men Type: BLOOD SPECIMENOrdering Facility: [facility] Address: [address] [place] [address] Performed By: #### 2 4323-8 ####[facility] LABCLIA [id number] [place] [address] Urea nitrogen [Mass/Vol] 24 mg/dL High 7-21 [facility] Comment on above: Order Comment: Speci men Type: BLOOD SPECIMENOrdering Facility: [facility] Address: [address] [place] [address] Performed By: #### 2 4323-8 ####[facility] LABCLIA [id number] [place] [address] Ferritin [facility] 2022 Ferritin [Mass/Vol] 21.2 ng/mL Normal 14.7-205.1 [facility] Comment on above: Order Comment: Speci men Type: BLOOD SPECIMENOrdering Facility: [facility] Address: [address] [place] [address] Performed By: #### 2 276-4, 2284-8, 57131-7, 9 ####[facility]CL[facility] [id number] [place] [address] [place] Folate [facility] Folate [Mass/Vol] 10.7 ng/mL Normal >4.7 [facility] Comment on above: Order Comment: Speci men Type: BLOOD SPECIMENOrdering Facility: [facility] Address: [address] [place] [address] Performed By: #### 2 276-4, 2284-8, 48843-0, 2132-01 ####[facility]CLIA [id number] [place] [address] [place] INSULIN ANTIBODY [facility] 04-09 Insulin Ab Qn (S) <0.4 Normal <0.4 [facility] Comment on above: Order Comment: Speci men Type: BLOOD SPECIMENOrdering Facility: [facility] Address: [address] [place] [address] Result Comment: Anti -insulin antibody test is [...] Performed By: #### I NSLAB ####[facility]CLIA [id number] [place] [address] [place] INSULIN ANTIBODY, QUALITATIVE Negative Normal Negative [facility] Comment on above: Order Comment: Speci men Type: BLOOD SPECIMENOrdering Facility: [facility] Address: [address] [place] [address] Performed By: #### I NSLAB ####[facility]CLIA [id number] [place] [id number] [place] Insulin SerPl-aCncon 023 Insulin Qn 266.5 u[IU]/mL High 3.0-25.0 [facility] Comment on above: Order Comment: Speci men Type: BLOOD SPECIMENOrdering Facility: [facility] Address: [address] [place] [address] Performed By: #### 2 0448-7 ####[facility] LABIA [id number] [place] [id number] [place] Iron and Iron binding capaci ty panelon 04-09-2023 Iron [Mass/Vol] 105 ug/dL Normal 41-186 [facility] Comment on above: Order Comment: Speci men Type: BLOOD SPECIMENOrdering Facility: [facility] Address: [address] [place] [address] Performed By: #### 2 276-4, 2284-8, 03783-5, 2132-01 ####[facility] LABIA [id number] [place] [address] [place] Iron binding capacity [Mass/Vol] 414 ug/dL High 232-386 [facility] Comment on above: Order Comment: Speci men Type: BLOOD SPECIMENOrdering Facility: [facility] Address: [address] [place] [address] Performed By: #### 2 276-4, 2284-8, 99850-5, 2132-01 ####[facility] LABIA [id number] [place] [id number] [place] Iron/TIBC [Molar ratio] 25.4 % Normal 15.0-57.0 [facility] Comment on above: Order Comment: Speci men Type: BLOOD SPECIMENOrdering Facility: [facility] Address: [address] [place] [address] Performed By: #### 2 276-4, 2284-8, 08184-7, 9 ####[facility] LABCLIA [id number] [place] [address] [place] Vit B12 [facility] 023 Cobalamin (Vitamin B12) [Mass/Vol] 370 pg/mL Normal 232-1245 [facility] Comment on above: Order Comment: Speci men Type: BLOOD SPECIMENOrdering Facility: [facility] Address: [address] [place] [address] Performed By: #### 2 276-4, 2284-8, 36641-8, 2132-9 ####[facility] [id number] [place] [address] [place] CNNURSEon 03-19-2023 CNNURSE Normal [facility] CNNURSEon 03-11-2023 CNNURSE Normal [facility] CNPNon 03-01-2023 CNPN Normal [facility] CNNURSEon 02-19-2023 CNNURSE Normal [facility] CNOVSPon 02-19-2023 CNOVSP Normal [facility] B2 Microglob SerPl-ncon Stfw-5-Bkriyrwrkqfwu [Mass/Vol] 1.9 ug/mL Normal 0.8-2.4 [facility] Comment on above: Order Comment: Speci men Type: BLOOD SPECIMENOrdering Facility: [facility] Address: [address] [place], [place] [id number] Result Comment: Beta -2 Microglobulin test is performed using the [employer] immunoturbidimetric method. Results obtained with different methods or kits cannot be used interchangeably. Performed By: #### 1 952-1, 66631-6, 2276-4 ####[facility] LABIA [id number] [place] [address] [place] CBC W Auto Differential pane l (Bld)on 02-11-2023 Basophils (Bld) [#/Vol] 0.08 10*3/uL Normal <0.11 [facility] Comment on above: Order Comment: Speci men Type: BLOOD SPECIMENOrdering Facility: [facility] Address: [address] [place] [address] Performed By: #### 5 7021-8 ####[facility] LABCLIA [id number] [place] [address] Basophils/100 WBC (Bld) 0.8 % Normal [facility] Comment on above: Order Comment: Speci men Type: BLOOD SPECIMENOrdering Facility: [facility] Address: [address] [place] [address] Performed By: #### 5 7021-8 ####[facility] LABCLIA [id number] [place] [address] Differential cell count method Nom (Bld) Auto Normal [facility] Comment on above: Order Comment: Speci men Type: BLOOD SPECIMENOrdering Facility: [facility] Address: [address] [place] [address] Performed By: #### 5 7021-8 ####[facility] LABCLIA [id number] [place] [address] Eosinophils (Bld) [#/Vol] 0.16 10*3/uL Normal <0.46 [facility] Comment on above: Order Comment: Speci men Type: BLOOD SPECIMENOrdering Facility: [facility] Address: [address] [place] [address] Performed By: #### 5 7021-8 ####[facility] LABCLIA [id number] [place] [address] Eosinophils/100 WBC (Bld) 1.6 % Normal [facility] Comment on above: Order Comment: Speci men Type: BLOOD SPECIMENOrdering Facility: [facility] Address: [address] [place] [address] Performed By: #### 5 7021-8 ####[facility] LABCLIA [id number] [place] [address] Erythrocyte distribution width (RBC) [Ratio] 14.6 % Normal 11.5-15.0 [facility] Comment on above: Order Comment: Speci men Type: BLOOD SPECIMENOrdering Facility: [facility] Address: [address] [place] [address] Performed By: #### 5 7021-8 ####[facility] LABCLIA [id number] [place] [address] Hematocrit (Bld) [Volume fraction] 41.0 % Normal 36.0-46.0 [facility] Comment on above: Order Comment: Speci men Type: BLOOD SPECIMENOrdering Facility: [facility] Address: [address] [place] [address] Performed By: #### 5 7021-8 ####[facility] LABCLIA [id number] [place] [address] Hemoglobin (Bld) [Mass/Vol] 13.2 g/dL Normal 11.5-15.5 [facility] Comment on above: Order Comment: Speci men Type: BLOOD SPECIMENOrdering Facility: [facility] Address: [address] [place] [address] Performed By: #### 5 7021-8 ####[facility] LABCLIA [id number] [place] [address] Immature granulocytes (Bld) [#/Vol] 0.07 10*3/uL Normal <0.10 [facility] Comment on above: Order Comment: Speci men Type: BLOOD SPECIMENOrdering Facility: [facility] Address: [address] [place] [address] Performed By: #### 5 7021-8 ####[facility] LABIA [id number] [place] [address] Immature granulocytes/100 WBC (Bld) 0.7 % Normal [facility] Comment on above: Order Comment: Speci men Type: BLOOD SPECIMENOrdering Facility: [facility] Address: [address] [place] [address] Performed By: #### 5 7021-8 ####[facility] LABCLIA [id number] [place] [address] Lymphocytes (Bld) [#/Vol] 2.29 10*3/uL Normal 1.00-4.00 [facility] Comment on above: Order Comment: Speci men Type: BLOOD SPECIMENOrdering Facility: [facility] Address: [address] [place] [address] Performed By: #### 5 7021-8 ####[facility] LABCLIA [id number] [place] [address] Lymphocytes/100 WBC (Bld) 22.4 % Normal [facility] Comment on above: Order Comment: Speci men Type: BLOOD SPECIMENOrdering Facility: [facility] Address: [address] [place] [address] Performed By: #### 5 7021-8 ####[facility] LABCLIA [id number] [place] [address] MCH (RBC) [Entitic mass] 30.6 pg Normal 26.0-34.0 [facility] Comment on above: Order Comment: Speci men Type: BLOOD SPECIMENOrdering Facility: [facility] Address: [address] [place] [address] Performed By: #### 5 7021-8 ####[facility] LABCLIA [id number] [place] [address] MCHC (RBC) [Mass/Vol] 32.2 g/dL Normal 30.5-36.0 [facility] Comment on above: Order Comment: Speci men Type: BLOOD SPECIMENOrdering Facility: [facility] Address: [address] [place] [address] Performed By: #### 5 7021-8 ####[facility] LABIA [id number] [place] [address] MCV (RBC) [Entitic vol] 94.9 fL Normal 80.0-100.0 [facility] Comment on above: Order Comment: Speci men Type: BLOOD SPECIMENOrdering Facility: [facility] Address: [address] [address] Performed By: #### 5 7021-8 ####[facility] LABCLIA [id number] [place] [address] Monocytes (Bld) [#/Vol] 0.62 10*3/uL Normal <0.87 [facility] Comment on above: Order Comment: Speci men Type: BLOOD SPECIMENOrdering Facility: [facility] Address: [address] [address] Performed By: #### 5 7021-8 ####[facility] LABCLIA [id number] [place] [address] Monocytes/100 WBC (Bld) 6.1 % Normal [facility] Comment on above: Order Comment: Speci men Type: BLOOD SPECIMENOrdering Facility: [facility] Address: [address] [place] [address] Performed By: #### 5 7021-8 ####[facility] LABCLIA [id number] [place] [address] Neutrophils (Bld) [#/Vol] 6.99 10*3/uL Normal 1.45-7.50 [facility] Comment on above: Order Comment: Speci men Type: BLOOD SPECIMENOrdering Facility: [facility] Address: [address] [place] [address] Performed By: #### 5 7021-8 ####[facility] LABCLIA [id number] [place] [address] Neutrophils/100 WBC (Bld) 68.4 % Normal [facility] Comment on above: Order Comment: Speci men Type: BLOOD SPECIMENOrdering Facility: [facility] Address: [address] [place] [address] Performed By: #### 5 7021-8 ####[facility] LABCLIA [id number] [place] [address] Nucleated RBC (Bld) [#/Vol] 10*3/uL Normal <0.01 [facility] Comment on above: Order Comment: Speci men Type: BLOOD SPECIMENOrdering Facility: [facility] Address: [address] [place] [address] Performed By: #### 5 7021-8 ####[facility] LABCLIA [id number] [place] [address] Nucleated RBC/100 WBC (Bld) [Ratio] 0.0 /100 WBC Normal [facility] Comment on above: Order Comment: Speci men Type: BLOOD SPECIMENOrdering Facility: [facility] Address: [address] [place] [address] Performed By: #### 5 7021-8 ####[facility] LABIA [id number] [place] [address] Platelet mean volume (Bld) [Entitic vol] 9.6 fL Normal 9.0-12.7 [facility] Comment on above: Order Comment: Speci men Type: BLOOD SPECIMENOrdering Facility: [facility] Address: [address] [place] [address] Performed By: #### 5 7021-8 ####[facility] LABCLIA [id number] [place] [address] Platelets (Bld) [#/Vol] 258 10*3/uL Normal 150-400 [facility] Comment on above: Order Comment: Speci men Type: BLOOD SPECIMENOrdering Facility: [facility] Address: [address] [place] [address] Performed By: #### 5 7021-8 ####[facility] LABIA [id number] [place] [address] RBC (Bld) [#/Vol] 4.32 10*6/uL Normal 3.90-5.20 [facility] Comment on above: Order Comment: Speci men Type: BLOOD SPECIMENOrdering Facility: [facility] Address: [address] Performed By: #### 5 7021-8 ####[facility] LABCLIA [id number] [place] [address] WBC (Bld) [#/Vol] 10.21 10*3/uL Normal 3.70-11.00 [facility] Comment on above: Order Comment: Speci men Type: BLOOD SPECIMENOrdering Facility: [facility] Address: [address] [place] [address] Performed By: #### 5 7021-8 ####[facility] LABCLIA [id number] [place] [address] Calcium.ionized [Moles/Vol]o n 02-11-2023 Calcium.ionized (Bld) [Mass/Vol] 1.32 mmol/L High 1.08-1.30 [facility] Comment on above: Order Comment: Speci men Type: BLOOD SPECIMENOrdering Facility: [facility] Address: [address] [place] [address] Performed By: #### 1 995-0 ####[facility] LABIA [id number] [place] [address] [place] Calcium.ionized adjusted to pH 7.4 (Bld) [Moles/Vol] 1.27 mmol/L Normal 1.08-1.30 [facility] Comment on above: Order Comment: Speci men Type: BLOOD SPECIMENOrdering Facility: [facility] Address: [address] [place], [place] [address] Performed By: #### 1 995-0 ####[facility] LABIA [id number] [place] [address] [place] Comprehensive metabolic 2000 panelon 02-11-2023 Albumin [Mass/Vol] 4.0 g/dL Normal 3.9-4.9 [facility] Comment on above: Order Comment: Speci men Type: BLOOD SPECIMENOrdering Facility: [facility] Address: [address] [address] Performed By: #### 2 4323-8, 2532-0, 2777-1, 3084-1 ####[facility] LABCLIA [id number] [place] [address] ALP [Catalytic activity/Vol] 75 U/L Normal 34-123 [facility] Comment on above: Order Comment: Speci men Type: BLOOD SPECIMENOrdering Facility: [facility] Address: [address] [address] Performed By: #### 2 4323-8, 2532-0, 2777-1, 3084-1 ####[facility] LABIA [id number] [place] [address] ALT [Catalytic activity/Vol] 21 U/L Normal 7-38 [facility] Comment on above: Order Comment: Speci men Type: BLOOD SPECIMENOrdering Facility: [facility] Address: [address] [place] [address] Performed By: #### 2 4323-8, 2532-0, 2777-1, 3084-1 ####[facility] LABIA [id number] [place] [address] Anion gap [Moles/Vol] 11 mmol/L Normal 9-18 [facility] Comment on above: Order Comment: Speci men Type: BLOOD SPECIMENOrdering Facility: [facility] Address: [address] [place] [address] Performed By: #### 2 4323-8, 2532-0, 2777-1, 3084-1 ####[facility] LABIA [id number] [place] [address] AST [Catalytic activity/Vol] 11 U/L Low 13-35 [facility] Comment on above: Order Comment: Speci men Type: BLOOD SPECIMENOrdering Facility: [facility] Address: [address] [place] [address] Performed By: #### 2 4323-8, 2532-0, 2777-1, 3084-1 ####[facility] LABIA [id number] [place] [address] Bilirubin [Mass/Vol] mg/dL Low 0.2-1.3 [facility] Comment on above: Order Comment: Speci men Type: BLOOD SPECIMENOrdering Facility: [facility] Address: [address] [place], [place] [address] Performed By: #### 2 4323-8, 2532-0, 7-1, 3084-1 ####[facility] LABIA [id number] [place] [address] Calcium [Mass/Vol] 9.7 mg/dL Normal 8.5-10.2 [facility] Comment on above: Order Comment: Speci men Type: BLOOD SPECIMENOrdering Facility: [facility] Address: [address] [place], [place] [address] Performed By: #### 2 4323-8, 2532-0, 7-1, 3084-1 ####[facility] LABIA [id number] [place] [address] Chloride [Moles/Vol] 107 mmol/L High 97-105 [facility] Comment on above: Order Comment: Speci men Type: BLOOD SPECIMENOrdering Facility: [facility] Address: [address] [place] [address] Performed By: #### 2 4323-8, 2532-0, 7-1, 3084-1 ####[facility] LABIA [id number] [place] [address] CO2 [Moles/Vol] 23 mmol/L Normal 22-30 [facility] Comment on above: Order Comment: Speci men Type: BLOOD SPECIMENOrdering Facility: [facility] Address: [address] [place], [place] [address] Performed By: #### 2 4323-8, 2532-0, 2777-1, 3083-1 ####[facility] LABCLIA [id number] [place] [address] Creatinine [Mass/Vol] 0.76 mg/dL Normal 0.58-0.96 [facility] Comment on above: Order Comment: Semaj cortés Type: BLOOD SPECIMENOrdering Facility: [facility] Address: [address] [place] [address] Performed By: #### 2 4323-8, 2532-0, 2776-1, 3083- ####[facility] LABCLIA [id number] [place] [address] Creatinine and Glomerular filtration rate.predicted panel (S/P/Bld) 100 mL/min/1.73m??? Normal >=60 [facility] Comment on above: Order Comment: Semaj cortés Type: BLOOD SPECIMENOrdering Facility: [facility] Address: [address] [place] [address] Result Comment: Erin mated Glomerular Filtration Rate [...] actual GFR. Performed By: #### 2 4323-8, 2-0, 2776-, 3083-05 ####[facility] LABCLIA [id number] [place] [address] Glucose [Mass/Vol] 164 mg/dL High 74-99 [facility] Comment on above: Order Comment: Semaj moo Type: BLOOD SPECIMENOrdering Facility: [facility] Address: [address] [place] [address] Result Comment: The [place] Diabetes Association (ADA) provides guidance for cutoff [...] Standards of Medical Care in Diabetes 2016, [place] [employer] Association. Diabetes Care. 2016.39(Suppl 1). Performed By: #### 2 4323-8, 2532-0, 2776-, 3083- ####[facility] LABCLIA [id number] [place] [address] Potassium [Moles/Vol] 4.0 mmol/L Normal 3.7-5.1 [facility] Comment on above: Order Comment: Speci men Type: BLOOD SPECIMENOrdering Facility: [facility] Address: [address] [place] [address] Performed By: #### 2 4323-8, 2-0, 2776-05, 3083-05 ####[facility] LABIA [id number] [place] [address] Protein [Mass/Vol] 6.5 g/dL Normal 6.3-8.0 [facility] Comment on above: Order Comment: Speci men Type: BLOOD SPECIMENOrdering Facility: [facility] Address: [address] [place] [address] Performed By: #### 2 4323-8, 2531-0, 2776-05, 3083-05 ####[facility] LABIA [id number] [place] [address] Sodium [Moles/Vol] 141 mmol/L Normal 136-144 [facility] Comment on above: Order Comment: Speci men Type: BLOOD SPECIMENOrdering Facility: [facility] Address: [address] [address] Performed By: #### 2 4323-8, 2-0, 2776-1, 3084-1 ####[facility] LABCLIA [id number] [place] [address] Urea nitrogen [Mass/Vol] 15 mg/dL Normal 7-21 [facility] Comment on above: Order Comment: Speci men Type: BLOOD SPECIMENOrdering Facility: [facility] Address: [address] [place] [address] Performed By: #### 2 4323-8, 2532-0, 2777-1, 3084-1 ####[facility] LABCLIA [id number] [place] [address] Ferritin SerPl-mCncon 2022 Ferritin [Mass/Vol] 34.2 ng/mL Normal 14.7-205.1 [facility] Comment on above: Order Comment: Speci men Type: BLOOD SPECIMENOrdering Facility: [facility] Address: [address] [place] [address] Performed By: #### 1 952-1, 02006-1, 2276-4 ####[facility] LABIA [id number] [address] [place] Folate SerPl-mCncon 02-12-20 23 Folate [Mass/Vol] ng/mL Normal >4.7 [facility] Comment on above: Order Comment: Speci men Type: BLOOD SPECIMENOrdering Facility: [facility] Address: [address] [place] [address] Result Comment: A re sult of > 20 ng/mL is not necessarily indicative of a pathologic or treatable condition: it reflects a limitation of the test methodology.Assay reference range: 4.8 to 24.2 ng/mL. Suitable for detection of folate deficiency.Reference:Folate III (Folate III) [package insert V 1.0 Indonesian]. [facility], [place], [place]: March 2015. Performed By: #### 2 885-2, 2132-9, 2284-8 ####[facility] LABCLIA [id number] [place] AV[id number] IMMUNOFIXATION SCREEN, SERUM on 02-11-2023 MPA RESULT No M protein is identified. Normal No M protein is identified. [facility] Comment on above: Order Comment: Speci men Type: BLOOD SPECIMENOrdering Facility: [facility] Address: [address] [place] [address] Performed By: #### I FESC ####[facility] LABCLIA [id number] [address] STAFF REVIEW (MPA) Reviewed by Daphne vyas M.D. [facility] Comment on above: Order Comment: Speci men Type: BLOOD SPECIMENOrdering Facility: [facility] Address: [address] [place] [address] Performed By: #### I FES ####[facility] LABCLIA [id number] [place] [address] [place] IMMUNOGLOBULINS GAMon 2022 IgA [Mass/Vol] 178 mg/dL Normal 70-400 [facility] Comment on above: Order Comment: Speci men Type: BLOOD SPECIMENOrdering Facility: [facility] Address: [address] [place], [place] [address] Performed By: #### S ERIMM ####[facility] LABCLIA [id number] [place] [address] [place] IgG [Mass/Vol] 534 mg/dL Low 700-1600 [facility] Comment on above: Order Comment: Speci men Type: BLOOD SPECIMENOrdering Facility: [facility] Address: [address] [place], [place] [address] Performed By: #### S ERIMM ####[facility] LABCLIA [id number] [place] [address] [place] IgM [Mass/Vol] 453 mg/dL High 40-230 [facility] Comment on above: Order Comment: Speci men Type: BLOOD SPECIMENOrdering Facility: [facility] Address: [address] [place] [address] Performed By: #### S ERIMM ####[facility] [id number] [place] [address] [place] Iron and Iron binding capaci ty panelon 02-11-2023 Iron [Mass/Vol] 55 ug/dL Normal 41-186 [facility] Comment on above: Order Comment: Speci men Type: BLOOD SPECIMENOrdering Facility: [facility] Address: [address] [place] [address] Performed By: #### 1 952-1, 92931-3, 2276-4 ####[facility] [id number] [address] [place] Iron binding capacity [Mass/Vol] 339 ug/dL Normal 232-386 [facility] Comment on above: Order Comment: Speci men Type: BLOOD SPECIMENOrdering Facility: [facility] Address: [address] [place] [address] Performed By: #### 1 952-1, 99783-4, 6-4 ####[facility] [id number] [address] [place] Iron/TIBC [Molar ratio] 16.2 % Normal 15.0-57.0 [facility] Comment on above: Order Comment: Speci men Type: BLOOD SPECIMENOrdering Facility: [facility] Address: [address] [place], [place] [address] Performed By: #### 1 952-1, 75370-2, 6-4 ####[facility] [id number] [place] [address] [place] KAPPA/FARMER,FREE,SERon 2022 Immunoglobulin light chains.kappa.free (S) [Mass/Vol] 13.1 mg/L Normal 3.3-19.4 [facility] Comment on above: Order Comment: Speci men Type: BLOOD SPECIMENOrdering Facility: [facility] Address: [address] [place] [address] Result Comment: Rare ly, increased serum free light chains levels may not be detected or accurately quantified due to prozone phenomenon or in high viscosity samples using this immunoturbidimetric assay. Correlation with other laboratory results and clinical findings is recommended.The [place] Free Light Chain was performed using the Binding Site Optilite immunoturbidimetric method. Result obtained with different assay methods or kits cannot be used interchangeably. Performed By: #### K LFRS ####[facility] LABCLIA [id number] [place] [address] [place] Immunoglobulin light chains.kappa/Immunog lobulin light chains.lambda (S) [Mass ratio] 1.22 Normal 0.26-1.65 [facility] Comment on above: Order Comment: Speci men Type: BLOOD SPECIMENOrdering Facility: [facility] Address: [address] [place] [address] Performed By: #### K LFRS ####[facility] LABCLIA [id number] [place] [address] [place] Immunoglobulin light chains.lambda.free [Mass/Vol] 10.7 mg/L Normal 5.7-26.3 [facility] Comment on above: Order Comment: Speci men Type: BLOOD SPECIMENOrdering Facility: [facility] Address: [address] [place] [address] Result Comment: Rare ly, increased serum free [...] Performed By: #### K LFRS ####[facility] LABCLIA [id number] [place] [address] [place] LDH SerPl-cCncon 02-11-2023 LDH [Catalytic activity/Vol] 190 U/L Normal 135-214 [facility] Comment on above: Order Comment: Speci men Type: BLOOD SPECIMENOrdering Facility: [facility] Address: [address] [place] [address] Result Comment: Hemo lysis present. The origin [...] By: #### 2 4323-8, 2532-0, 2777-1, 3084-1 ####[facility] LABCLIA [id number] [place] [address] PROTEIN ELECTROPHORESIS SERU M (P)on 02-11-2023 Albumin [Mass/Vol] 3.61 g/dL Normal 3.43-5.41 [facility] Comment on above: Order Comment: Speci men Type: BLOOD SPECIMENOrdering Facility: [facility] Address: [address] [address] Performed By: #### L [id number] ####[facility] LABCLIA [id number] [place] [address] [place] Alpha 1 globulin Elph [Mass/Vol] 0.31 g/dL Normal 0.18-0.43 [facility] Comment on above: Order Comment: Speci men Type: BLOOD SPECIMENOrdering Facility: [facility] Address: [address] Performed By: #### L [id number] ####[facility] LABCLIA [id number] [place] [address] [place] Alpha 2 globulin Elph [Mass/Vol] 0.76 g/dL Normal 0.42-0.98 [facility] Comment on above: Order Comment: Speci men Type: BLOOD SPECIMENOrdering Facility: [facility] Address: [address] [address] Performed By: #### L [id number] ####[facility] LABCLIA [id number] [place] [address] [place] Beta globulin Elph [Mass/Vol] 0.85 g/dL Normal 0.61-1.17 [facility] Comment on above: Order Comment: Speci men Type: BLOOD SPECIMENOrdering Facility: [facility] Address: [address] [place] [address] Performed By: #### L [id number] ####[facility] LABIA [id number] [address] [facility] Gamma globulin Elph [Mass/Vol] 0.66 g/dL Normal 0.53-1.51 [facility] Comment on above: Order Comment: Speci men Type: BLOOD SPECIMENOrdering Facility: [facility] Address: [address] [place] [address] Performed By: #### L [id number] ####[facility] LABIA [id number] [address] STATES [facility] M-PROTEIN LOCATION Normal [facility] Comment on above: Order Comment: Speci men Type: BLOOD SPECIMENOrdering Facility: [facility] Address: [address] [place] [address] Result Comment: Not Applicable. Performed By: #### L [id number] ####[facility] LABIA [id number] [place] [address] [place] Protein Fractions [Interp] No definitive M protein is identified on protein electrophoresis. Normal No definitive M protein is identified on protein electrophore sis. [facility] Comment on above: Order Comment: Speci men Type: BLOOD SPECIMENOrdering Facility: [facility] Address: [address] [place] [address] Performed By: #### L [id number] ####[facility] LABIA [id number] [address] [place] Protein.monoclonal Elph [Mass/Vol] 0.00 g/dL Normal <=0.00 [facility] Comment on above: Order Comment: Speci men Type: BLOOD SPECIMENOrdering Facility: [facility] Address: [address] [place] [address] Performed By: #### L [id number] ####[facility] LABCLIA [id number] [address] [facility] SPE STAFF REVIEW Reviewed by Daphne vyas M.D. Normal [facility] Comment on above: Order Comment: Speci men Type: BLOOD SPECIMENOrdering Facility: [facility] Address: [address] [place] [address] Performed By: #### L [id number] ####[facility] LABCLIA [id number] [address] [facility] Phosphate SerPl-mCncon 02-11 Phosphate [Mass/Vol] 3.4 mg/dL Normal 2.7-4.8 [facility] Comment on above: Order Comment: Speci men Type: BLOOD SPECIMENOrdering Facility: [facility] Address: [address] [place] [address] Performed By: #### 2 4323-8, 2532-0, 2777-1, 3084-1 ####[facility] LABCLIA [id number] [place] [id number] Prot SerPl-mCncon 02-11-2023 Protein [Mass/Vol] 6.2 g/dL Low 6.3-8.0 [facility] Comment on above: Order Comment: Speci men Type: BLOOD SPECIMENOrdering Facility: [facility] Address: [address] [place] [address] Performed By: #### 2 885-2, 2132-9, 2284-8 ####[facility] LABCLIA [id number] [place] [address] [place] Urate [facility] 3 Urate [Mass/Vol] 4.3 mg/dL Normal 2.5-6.6 [facility] Comment on above: Order Comment: Speci men Type: BLOOD SPECIMENOrdering Facility: [facility] Address: [address] [address] Performed By: #### 2 4323-8, 2532-0, 2777-1, 3084-1 ####[facility] LABCLIA [id number] [place] [address] Vit B12 [facility] Cobalamin (Vitamin B12) [Mass/Vol] 598 pg/mL Normal 232-1245 [facility] Comment on above: Order Comment: Speci men Type: BLOOD SPECIMENOrdering Facility: [facility] Address: [address] [place] [address] Performed By: #### 2 885-2, 2132-9, 2284-8 ####[facility] LABCLIA [id number] [address] [place] CNPNon 02-04-2023 CNPN Normal [facility] CNPNon 01-24-2023 CNPN Normal [facility] 25([place])D3 [facility] 2022 25-hydroxyvitamin D3 [Mass/Vol] 25.1 ng/mL Low 31.0-80.0 [facility] Comment on above: Order Comment: Speci men Type: BLOOD SPECIMENOrdering Facility: [facility] Address: [address] Result Comment: Clas sification of 25 [place] Vitamin D status:Deficiency/Insufficiency: < or = 30 ng/ml.Sufficiency/Optimal Levels: 31-80 ng/mLToxicity: > 100 ng/mL.Test performed by chemiluminescent immunoassay. Performed By: #### 1 989-3 ####[facility] LABCLIA [id number] [place] [address] [place] CBC panel Auto (Bld)on 01-22 Erythrocyte distribution width (RBC) [Ratio] 14.8 % Normal 11.5-15.0 [facility] Comment on above: Order Comment: Speci men Type: BLOOD SPECIMENOrdering Facility: [facility] Address: [address] [place] [address] Performed By: #### 5 8410-2 ####[facility] LABCLIA [id number] [place] [address] Hematocrit (Bld) [Volume fraction] 40.9 % Normal 36.0-46.0 [facility] Comment on above: Order Comment: Speci men Type: BLOOD SPECIMENOrdering Facility: [facility] Address: [address] [place] [address] Performed By: #### 5 8410-2 ####[facility] LABIA [id number] [place] [address] Hemoglobin (Bld) [Mass/Vol] 13.4 g/dL Normal 11.5-15.5 [facility] Comment on above: Order Comment: Speci men Type: BLOOD SPECIMENOrdering Facility: [facility] Address: [address] [place] [address] Performed By: #### 5 8410-2 ####[facility] LABCLIA [id number] [place] [address] MCH (RBC) [Entitic mass] 30.1 pg Normal 26.0-34.0 [facility] Comment on above: Order Comment: Speci men Type: BLOOD SPECIMENOrdering Facility: [facility] Address: [address] [place] [address] Performed By: #### 5 8410-2 ####[facility] LABIA [id number] [place] [address] MCHC (RBC) [Mass/Vol] 32.8 g/dL Normal 30.5-36.0 [facility] Comment on above: Order Comment: Speci men Type: BLOOD SPECIMENOrdering Facility: [facility] Address: [address] [place] [address] Performed By: #### 5 8410-2 ####[facility] LABCLIA [id number] [place] [address] MCV (RBC) [Entitic vol] 91.9 fL Normal 80.0-100.0 [facility] Comment on above: Order Comment: Speci men Type: BLOOD SPECIMENOrdering Facility: [facility] Address: [address] [place] [address] Performed By: #### 5 8410-2 ####[facility] LABCLIA [id number] [place] [address] Nucleated RBC (Bld) [#/Vol] 10*3/uL Normal <0.01 [facility] Comment on above: Order Comment: Speci men Type: BLOOD SPECIMENOrdering Facility: [facility] Address: [address] [place] [address] Performed By: #### 5 8410-2 ####[facility] LABIA [id number] [place] [address] Platelet mean volume (Bld) [Entitic vol] 9.6 fL Normal 9.0-12.7 [facility] Comment on above: Order Comment: Speci men Type: BLOOD SPECIMENOrdering Facility: [facility] Address: [address] [place] [address] Performed By: #### 5 8410-2 ####[facility] LABCLIA [id number] [place] [address] Platelets (Bld) [#/Vol] 285 10*3/uL Normal 150-400 [facility] Comment on above: Order Comment: Speci men Type: BLOOD SPECIMENOrdering Facility: [facility] Address: [address] [place] [address] Performed By: #### 5 8410-2 ####[facility] LABCLIA [id number] [place] [address] RBC (Bld) [#/Vol] 4.45 10*6/uL Normal 3.90-5.20 [facility] Comment on above: Order Comment: Speci men Type: BLOOD SPECIMENOrdering Facility: [facility] Address: [address] [place] [address] Performed By: #### 5 8410-2 ####[facility] LABCLIA [id number] [place] [address] WBC (Bld) [#/Vol] 13.80 10*3/uL High 3.70-11.00 [facility] Comment on above: Order Comment: Speci men Type: BLOOD SPECIMENOrdering Facility: [facility] Address: [address] [place] [address] Performed By: #### 5 8410-2 ####[facility] LABCLIA [id number] [place] [address] CNNURSEon 01-22-2023 CNNURSE Normal [facility] CRP SerPl-mCncon 01-22-2023 CRP [Mass/Vol] mg/L Normal <0.9 [facility] Comment on above: Order Comment: Speci men Type: BLOOD SPECIMENOrdering Facility: [facility] Address: [address] [place] [address] Performed By: #### 1 988-5 ####[facility] LABCLIA [id number] [place] [address] [facility] Comprehensive metabolic 2000 panelon 01-22-2023 Albumin [Mass/Vol] 4.1 g/dL Normal 3.9-4.9 [facility] Comment on above: Order Comment: Speci men Type: BLOOD SPECIMENOrdering Facility: [facility] Address: [address] [place] [address] Performed By: #### 2 4323-8 ####[facility] LABCLIA [id number] [place] [address] ALP [Catalytic activity/Vol] 62 U/L Normal 34-123 [facility] Comment on above: Order Comment: Speci men Type: BLOOD SPECIMENOrdering Facility: [facility] Address: [address] [address] Performed By: #### 2 4323-8 ####[facility] LABCLIA [id number] [place] [address] ALT [Catalytic activity/Vol] 27 U/L Normal 7-38 [facility] Comment on above: Order Comment: Speci men Type: BLOOD SPECIMENOrdering Facility: [facility] Address: [address] [place] [address] Performed By: #### 2 4323-8 ####[facility] LABCLIA [id number] [place] [address] Anion gap [Moles/Vol] 10 mmol/L Normal 9-18 [facility] Comment on above: Order Comment: Speci men Type: BLOOD SPECIMENOrdering Facility: [facility] Address: [address] [address] Performed By: #### 2 4323-8 ####[facility] LABCLIA [id number] [place] [address] AST [Catalytic activity/Vol] 12 U/L Low 13-35 [facility] Comment on above: Order Comment: Speci men Type: BLOOD SPECIMENOrdering Facility: [facility] Address: [address] [address] Performed By: #### 2 4323-8 ####[facility] LABCLIA [id number] [place] [address] Bilirubin [Mass/Vol] 0.2 mg/dL Normal 0.2-1.3 [facility] Comment on above: Order Comment: Speci men Type: BLOOD SPECIMENOrdering Facility: [facility] Address: [address] [place] [address] Performed By: #### 2 4323-8 ####[facility] LABCLIA [id number] [place] [address] Calcium [Mass/Vol] 9.4 mg/dL Normal 8.5-10.2 [facility] Comment on above: Order Comment: Speci men Type: BLOOD SPECIMENOrdering Facility: [facility] Address: [address] [place] [address] Performed By: #### 2 4323-8 ####[facility] LABCLIA [id number] [place] [address] Chloride [Moles/Vol] 107 mmol/L High 97-105 [facility] Comment on above: Order Comment: Speci men Type: BLOOD SPECIMENOrdering Facility: [facility] Address: [address] [place] [address] Performed By: #### 2 4323-8 ####[facility] LABCLIA [id number] [place] [address] CO2 [Moles/Vol] 24 mmol/L Normal 22-30 [facility] Comment on above: Order Comment: Speci men Type: BLOOD SPECIMENOrdering Facility: [facility] Address: [address] [place] [address] Performed By: #### 2 4323-8 ####[facility] LABCLIA [id number] [place] [address] Creatinine [Mass/Vol] 0.71 mg/dL Normal 0.58-0.96 [facility] Comment on above: Order Comment: Speci men Type: BLOOD SPECIMENOrdering Facility: [facility] Address: [address] [place] [address] Performed By: #### 2 4323-8 ####[facility] LABCLIA [id number] [place] [address] Creatinine and Glomerular filtration rate.predicted panel (S/P/Bld) 109 mL/min/1.73m??? Normal >=60 [facility] Comment on above: Order Comment: Semaj cortés Type: BLOOD SPECIMENOrdering Facility: [facility] Address: [address] [phone] Result Comment: Erin mated Glomerular Filtration Rate [...] actual GFR. Performed By: #### 2 4323-8 ####[facility] LABIA [id number] [place] [address] Glucose [Mass/Vol] 60 mg/dL Low 74-99 [facility] Comment on above: Order Comment: Semaj cortés Type: BLOOD SPECIMENOrdering Facility: [facility] Address: [address] [address] Result Comment: The [place] Diabetes Association (ADA) provides guidance for cutoff [...] Standards of Medical Care in Diabetes 2016, [place] [employer]. Diabetes Care. 2016.39(Suppl 1). Performed By: #### 2 4323-8 ####[facility] LABIA [id number] [place] [address] Potassium [Moles/Vol] 4.0 mmol/L Normal 3.7-5.1 [facility] Comment on above: Order Comment: Semaj cortés Type: BLOOD SPECIMENOrdering Facility: [facility] Address: [address] Performed By: #### 2 4323-8 ####[facility] LABCLIA [id number] [place] [address] Protein [Mass/Vol] 6.7 g/dL Normal 6.3-8.0 [facility] Comment on above: Order Comment: Speci men Type: BLOOD SPECIMENOrdering Facility: [facility] Address: [address] [place] [address] Performed By: #### 2 4323-8 ####[facility] LABCLIA [id number] [place] [address] Sodium [Moles/Vol] 141 mmol/L Normal 136-144 [facility] Comment on above: Order Comment: Speci men Type: BLOOD SPECIMENOrdering Facility: [facility] Address: [address] [place] [address] Performed By: #### 2 4323-8 ####[facility] LABCLIA [id number] [place] [address] Urea nitrogen [Mass/Vol] 13 mg/dL Normal 7-21 [facility] Comment on above: Order Comment: Speci men Type: BLOOD SPECIMENOrdering Facility: [facility] Address: [address] [place] [address] Performed By: #### 2 4323-8 ####[facility] LABCLIA [id number] [place] [address] ESR Westergren method (Bld) [Velocity]on 01-22-2023 ESR (Bld) [Velocity] 20 mm/h Normal 0-20 [facility] Comment on above: Order Comment: Speci men Type: BLOOD SPECIMENOrdering Facility: [facility] Address: [address] [place] [address] Performed By: #### 4 537-7 ####[facility] LABCLIA [id number] [place] [id number] [place] CNNURSEon 12-29-2022 CNNURSE Normal [facility] CNPNon 12-18-2022 CNPN Normal [facility] CNPNon 12-16-2022 CNPN Normal [facility] CBC W Auto Differential pane l (Bld)on 12-08-2022 Basophils (Bld) [#/Vol] 0.06 10*3/uL Normal <0.11 [facility] Comment on above: Order Comment: Speci men Type: BLOOD SPECIMENOrdering Facility: [facility] Address: [address] [place] [address] Performed By: #### 5 7021-8 ####[facility] LABCLIA [id number] [place] [address] Basophils/100 WBC (Bld) 0.4 % Normal [facility] Comment on above: Order Comment: Speci men Type: BLOOD SPECIMENOrdering Facility: [facility] Address: [address] [place] [address] Performed By: #### 5 7021-8 ####[facility] LABCLIA [id number] [place] [address] Differential cell count method Nom (Bld) Auto Normal [facility] Comment on above: Order Comment: Speci men Type: BLOOD SPECIMENOrdering Facility: [facility] Address: [address] [place] [address] Performed By: #### 5 7021-8 ####[facility] LABCLIA [id number] [place] [address] Eosinophils (Bld) [#/Vol] 0.11 10*3/uL Normal <0.46 [facility] Comment on above: Order Comment: Speci men Type: BLOOD SPECIMENOrdering Facility: [facility] Address: [address] [place] [address] Performed By: #### 5 7021-8 ####[facility] LABCLIA [id number] [place] [address] Eosinophils/100 WBC (Bld) 0.8 % Normal [facility] Comment on above: Order Comment: Speci men Type: BLOOD SPECIMENOrdering Facility: [facility] Address: [address] [address] Performed By: #### 5 7021-8 ####[facility] LABCLIA [id number] [place] [address] Erythrocyte distribution width (RBC) [Ratio] 14.6 % Normal 11.5-15.0 [facility] Comment on above: Order Comment: Speci men Type: BLOOD SPECIMENOrdering Facility: [facility] Address: [address] [place] [address] Performed By: #### 5 7021-8 ####[facility] LABCLIA [id number] [place] [address] Hematocrit (Bld) [Volume fraction] 42.0 % Normal 36.0-46.0 [facility] Comment on above: Order Comment: Speci men Type: BLOOD SPECIMENOrdering Facility: [facility] Address: [address] [place] [address] Performed By: #### 5 7021-8 ####[facility] LABIA [id number] [place] [address] Hemoglobin (Bld) [Mass/Vol] 13.3 g/dL Normal 11.5-15.5 [facility] Comment on above: Order Comment: Speci men Type: BLOOD SPECIMENOrdering Facility: [facility] Address: [address] [place] [address] Performed By: #### 5 7021-8 ####[facility] LABCLIA [id number] [place] [address] Immature granulocytes (Bld) [#/Vol] 0.11 10*3/uL High <0.10 [facility] Comment on above: Order Comment: Speci men Type: BLOOD SPECIMENOrdering Facility: [facility] Address: [address] [place] [address] Performed By: #### 5 7021-8 ####[facility] LABCLIA [id number] [place] [address] Immature granulocytes/100 WBC (Bld) 0.8 % Normal [facility] Comment on above: Order Comment: Speci men Type: BLOOD SPECIMENOrdering Facility: [facility] Address: [address] [place] [address] Performed By: #### 5 7021-8 ####[facility] LABCLIA [id number] [place] [address] Lymphocytes (Bld) [#/Vol] 3.75 10*3/uL Normal 1.00-4.00 [facility] Comment on above: Order Comment: Speci men Type: BLOOD SPECIMENOrdering Facility: [facility] Address: [address] [place] [address] Performed By: #### 5 7021-8 ####[facility] LABCLIA [id number] [place] [address] Lymphocytes/100 WBC (Bld) 27.4 % Normal [facility] Comment on above: Order Comment: Speci men Type: BLOOD SPECIMENOrdering Facility: [facility] Address: [address] [place] [address] Performed By: #### 5 7021-8 ####[facility] LABCLIA [id number] [place] [address] MCH (RBC) [Entitic mass] 29.8 pg Normal 26.0-34.0 [facility] Comment on above: Order Comment: Speci men Type: BLOOD SPECIMENOrdering Facility: [facility] Address: [address] [place] [address] Performed By: #### 5 7021-8 ####[facility] LABCLIA [id number] [place] [address] MCHC (RBC) [Mass/Vol] 31.7 g/dL Normal 30.5-36.0 [facility] Comment on above: Order Comment: Speci men Type: BLOOD SPECIMENOrdering Facility: [facility] Address: [address] [place] [address] Performed By: #### 5 7021-8 ####[facility] LABIA [id number] [place] [address] MCV (RBC) [Entitic vol] 94.0 fL Normal 80.0-100.0 [facility] Comment on above: Order Comment: Speci men Type: BLOOD SPECIMENOrdering Facility: [facility] Address: [address] [place] [address] Performed By: #### 5 7021-8 ####[facility] LABIA [id number] [place] [address] Monocytes (Bld) [#/Vol] 1.07 10*3/uL High <0.87 [facility] Comment on above: Order Comment: Speci men Type: BLOOD SPECIMENOrdering Facility: [facility] Address: [address] [place] [address] Performed By: #### 5 7021-8 ####[facility] LABIA [id number] [place] [address] Monocytes/100 WBC (Bld) 7.8 % Normal [facility] Comment on above: Order Comment: Speci men Type: BLOOD SPECIMENOrdering Facility: [facility] Address: [address] [place] [address] Performed By: #### 5 7021-8 ####[facility] LABCLIA [id number] [place] [address] Neutrophils (Bld) [#/Vol] 8.57 10*3/uL High 1.45-7.50 [facility] Comment on above: Order Comment: Speci men Type: BLOOD SPECIMENOrdering Facility: [facility] Address: [address] [place] [address] Performed By: #### 5 7021-8 ####[facility] LABCLIA [id number] [place] [address] Neutrophils/100 WBC (Bld) 62.8 % Normal [facility] Comment on above: Order Comment: Speci men Type: BLOOD SPECIMENOrdering Facility: [facility] Address: [address] [place] [address] Performed By: #### 5 7021-8 ####[facility] LABCLIA [id number] [place] [address] Nucleated RBC (Bld) [#/Vol] 10*3/uL Normal <0.01 [facility] Comment on above: Order Comment: Speci men Type: BLOOD SPECIMENOrdering Facility: [facility] Address: [address] [place] [address] Performed By: #### 5 7021-8 ####[facility] LABCLIA [id number] [place] [address] Nucleated RBC/100 WBC (Bld) [Ratio] 0.0 /100 WBC Normal [facility] Comment on above: Order Comment: Speci men Type: BLOOD SPECIMENOrdering Facility: [facility] Address: [address] [place] [address] Performed By: #### 5 7021-8 ####[facility] LABCLIA [id number] [place] [address] Platelet mean volume (Bld) [Entitic vol] 9.6 fL Normal 9.0-12.7 [facility] Comment on above: Order Comment: Speci men Type: BLOOD SPECIMENOrdering Facility: [facility] Address: [address] [place] [address] Performed By: #### 5 7021-8 ####[facility] LABIA [id number] [place] [address] Platelets (Bld) [#/Vol] 301 10*3/uL Normal 150-400 [facility] Comment on above: Order Comment: Speci men Type: BLOOD SPECIMENOrdering Facility: [facility] Address: [address] [place], [place] [id number] Performed By: #### 5 7021-8 ####[facility] LABCLIA [id number] [place] [address] RBC (Bld) [#/Vol] 4.47 10*6/uL Normal 3.90-5.20 [facility] Comment on above: Order Comment: Speci men Type: BLOOD SPECIMENOrdering Facility: [facility] Address: [address] [address] Performed By: #### 5 7021-8 ####[facility] LABCLIA [id number] [place] [address] WBC (Bld) [#/Vol] 13.67 10*3/uL High 3.70-11.00 [facility] Comment on above: Order Comment: Speci men Type: BLOOD SPECIMENOrdering Facility: [facility] Address: [address] [address] Performed By: #### 5 7021-8 ####[facility] LABIA [id number] [place] [address] CNPNon 12-08-2022 CNPN Normal [facility] Comprehensive metabolic 2000 panelon 12-08-2022 Albumin [Mass/Vol] 4.3 g/dL Normal 3.9-4.9 [facility] Comment on above: Order Comment: Speci men Type: BLOOD SPECIMENOrdering Facility: [facility] Address: [address] [address] Performed By: #### 2 4323-8 ####[facility] LABCLIA [id number] [place] [address] ALP [Catalytic activity/Vol] 63 U/L Normal 34-123 [facility] Comment on above: Order Comment: Speci men Type: BLOOD SPECIMENOrdering Facility: [facility] Address: [address] [address] Performed By: #### 2 4323-8 ####[facility] LABCLIA [id number] [place] [address] ALT [Catalytic activity/Vol] 19 U/L Normal 7-38 [facility] Comment on above: Order Comment: Speci men Type: BLOOD SPECIMENOrdering Facility: [facility] Address: [address] [place] [address] Performed By: #### 2 4323-8 ####[facility] LABCLIA [id number] [place] [address] Anion gap [Moles/Vol] 5 mmol/L Low 9-18 [facility] Comment on above: Order Comment: Speci men Type: BLOOD SPECIMENOrdering Facility: [facility] Address: [address] [place] [address] Performed By: #### 2 4323-8 ####[facility] LABCLIA [id number] [place] [address] AST [Catalytic activity/Vol] 10 U/L Low 13-35 [facility] Comment on above: Order Comment: Speci men Type: BLOOD SPECIMENOrdering Facility: [facility] Address: [address] [place] [address] Performed By: #### 2 4323-8 ####[facility] LABCLIA [id number] [place] [address] Bilirubin [Mass/Vol] 0.2 mg/dL Normal 0.2-1.3 [facility] Comment on above: Order Comment: Speci men Type: BLOOD SPECIMENOrdering Facility: [facility] Address: [address] [place] [address] Performed By: #### 2 4323-8 ####[facility] LABCLIA [id number] [place] [address] Calcium [Mass/Vol] 9.9 mg/dL Normal 8.5-10.2 [facility] Comment on above: Order Comment: Speci men Type: BLOOD SPECIMENOrdering Facility: [facility] Address: [address] [address] Performed By: #### 2 4323-8 ####[facility] LABCLIA [id number] [place] [address] Chloride [Moles/Vol] 106 mmol/L High 97-105 [facility] Comment on above: Order Comment: Speci men Type: BLOOD SPECIMENOrdering Facility: [facility] Address: [address] [place] [address] Performed By: #### 2 4323-8 ####[facility] LABCLIA [id number] [place] [address] CO2 [Moles/Vol] 26 mmol/L Normal 22-30 [facility] Comment on above: Order Comment: Speci men Type: BLOOD SPECIMENOrdering Facility: [facility] Address: [address] [place] [address] Performed By: #### 2 4323-8 ####[facility] LABCLIA [id number] [place] [address] Creatinine [Mass/Vol] 0.80 mg/dL Normal 0.58-0.96 [facility] Comment on above: Order Comment: Speci men Type: BLOOD SPECIMENOrdering Facility: [facility] Address: [address] [place] [address] Performed By: #### 2 4323-8 ####[facility] LABCLIA [id number] [place] [address] ESTIMATED GLOMERULAR FILTRATION RATE 94 mL/min/1.73m??? Normal >=60 [facility] Comment on above: Order Comment: Speci men Type: BLOOD SPECIMENOrdering Facility: [facility] Address: [address] [place] [address] Result Comment: Erin mated Glomerular Filtration Rate [...] actual GFR. Performed By: #### 2 4323-8 ####[facility] LABCLIA [id number] [place] [address] Glucose [Mass/Vol] 91 mg/dL Normal 74-99 [facility] Comment on above: Order Comment: Semaj cortés Type: BLOOD SPECIMENOrdering Facility: [facility] Address: [address] [place] [address] Result Comment: The [place] Diabetes Association (ADA) provides guidance for cutoff [...] Standards of Medical Care in Diabetes 2016, [place] [employer]. Diabetes Care. 2016.39(Suppl 1). Performed By: #### 2 4323-8 ####[facility] LABCLIA [id number] [place] [address] Potassium [Moles/Vol] 3.9 mmol/L Normal 3.7-5.1 [facility] Comment on above: Order Comment: Semaj cortés Type: BLOOD SPECIMENOrdering Facility: [facility] Address: [address] [phone] Performed By: #### 2 4323-8 ####[facility] LABCLIA [id number] [place] [address] Protein [Mass/Vol] 7.1 g/dL Normal 6.3-8.0 [facility] Comment on above: Order Comment: Semaj cortés Type: BLOOD SPECIMENOrdering Facility: [facility] Address: [address] [place] [address] Performed By: #### 2 4323-8 ####[facility] LABCLIA [id number] [place] [address] Sodium [Moles/Vol] 137 mmol/L Normal 136-144 [facility] Comment on above: Order Comment: Speci men Type: BLOOD SPECIMENOrdering Facility: [facility] Address: [address] [address] Performed By: #### 2 4323-8 ####[facility] LABCLIA [id number] [place] [address] Urea nitrogen [Mass/Vol] 20 mg/dL Normal 7-21 [facility] Comment on above: Order Comment: Speci men Type: BLOOD SPECIMENOrdering Facility: [facility] Address: [address] [address] Performed By: #### 2 4323-8 ####[facility] LABCLIA [id number] [place] [address] Ferritin SerPl-mCncon 2022 Ferritin [Mass/Vol] 26.6 ng/mL Normal 14.7-205.1 [facility] Comment on above: Order Comment: Speci men Type: BLOOD SPECIMENOrdering Facility: [facility] Address: [address] [address] Performed By: #### 5 0190-8, 2131-9, 4, 2283-8 ####[facility] LABCLIA [id number] [facility] [id number] [address] [place] Folate SerPl-mCncon 12-09-19 23 Folate [Mass/Vol] 2.6 ng/mL Low >4.7 [facility] Comment on above: Order Comment: Speci men Type: BLOOD SPECIMENOrdering Facility: [facility] Address: [address] [address] Performed By: #### 5 0190-8, 9, 2275-08, 2283-12 ####[facility] LABCLIA [id number] [place] [id number] [place] [employer] capaci ty panelon 12-08-2022 Iron [Mass/Vol] 48 ug/dL Normal 41-186 [facility] Comment on above: Order Comment: Speci men Type: BLOOD SPECIMENOrdering Facility: [facility] Address: [address] [place] [address] Performed By: #### 5 0190-8, 9, 2275-08, 2283-12 ####[facility] [id number] [place] [address] [place] Iron binding capacity [Mass/Vol] 382 ug/dL Normal 232-386 [facility] Comment on above: Order Comment: Speci men Type: BLOOD SPECIMENOrdering Facility: [facility] Address: [address] [place] [address] Performed By: #### 5 0190-8, 9, 2275-08, 2283-12 ####[facility] [id number] [place] [address] [place] Iron/TIBC [Molar ratio] 12.6 % Low 15.0-57.0 [facility] Comment on above: Order Comment: Speci men Type: BLOOD SPECIMENOrdering Facility: [facility] Address: [address] [place], [place] [address] Performed By: #### 5 0190-8, 9, 2275-08, 2283-12 ####[facility] [id number] [place] [id number] [place] Vit B12 SerPl-mCncon 023 Cobalamin (Vitamin B12) [Mass/Vol] 336 pg/mL Normal 232-1245 [facility] Comment on above: Order Comment: Speci men Type: BLOOD SPECIMENOrdering Facility: [facility] Address: [address] [place] [address] [place] [address] Performed By: #### 5 0190-8, 2132-9, 2276-4, 2284-8 ####[facility] [id number] [facility]ICSaúl [facility] [address] [place] CNNURSEon 11-19-2022 CNNURSE Normal [facility] CNPNon 10-31-2022 CNPN Normal [facility] CNNURSEon 10-22-2022 CNNURSE Normal [facility] CNOVSPon 10-22-2022 CNOVSP Normal [facility] TPMT PHENOTYPE/ENZYME ACTIVI TYon 10-22-2022 TPMT ACTIVITY 33.5 U/mL Normal 24.0-44.0 [facility] Comment on above: Order Comment: Speci men Type: BLOOD SPECIMENOrdering Facility: [facility] Address: [address] [place] [address] Result Comment: INTE RPRETIVE INFORMATION: Thiopurine Methyltransferase, [...] was developed and its performance characteristicsdetermined by [facility] It has not been cleared orapproved by the [place] Food and Drug Administration. This test wasperformed in a CLIA certified laboratory and is intended forclinical purposes.Performed By: [facility] [employer])[address] [place] [id number] Director: Ole Love MD, PhD Performed By: #### T PMT ####[facility] [id number] [place] [address] CNPNon 10-16-2022 CNPN Normal [facility] 25(OH)D3 SerPl-mCncon 2022 25-hydroxyvitamin D3 [Mass/Vol] 28.3 ng/mL Low 31.0-80.0 [facility] Comment on above: Order Comment: Speci men Type: BLOOD SPECIMENOrdering Facility: [facility] Address: [address] [address] Result Comment: Clas sification of 25 [place] Vitamin D status:Deficiency/Insufficiency: < or = 30 ng/ml.Sufficiency/Optimal Levels: 31-80 ng/mLToxicity: > 100 ng/mL.Test performed by chemiluminescent immunoassay. Performed By: #### 1 989-3 ####[facility] [id number] [address] STATES OF [facility] CBC W Auto Differential pane l (Bld)on 10-15-2022 Basophils (Bld) [#/Vol] 0.07 10*3/uL Normal <0.11 [facility] Comment on above: Order Comment: Speci men Type: BLOOD SPECIMENOrdering Facility: [facility] Address: [address] [address] Performed By: #### 5 7021-8 ####[facility] LABCLIA [id number] [place] [address] Basophils/100 WBC (Bld) 0.6 % Normal [facility] Comment on above: Order Comment: Speci men Type: BLOOD SPECIMENOrdering Facility: [facility] Address: [address] [address] Performed By: #### 5 7021-8 ####[facility] LABCLIA [id number] [place] [address] Differential cell count method Nom (Bld) Auto Normal [facility] Comment on above: Order Comment: Speci men Type: BLOOD SPECIMENOrdering Facility: [facility] Address: [address] [place] [address] Performed By: #### 5 7021-8 ####[facility] LABCLIA [id number] [place] [address] Eosinophils (Bld) [#/Vol] 0.16 10*3/uL Normal <0.46 [facility] Comment on above: Order Comment: Speci men Type: BLOOD SPECIMENOrdering Facility: [facility] Address: [address] [place] [address] Performed By: #### 5 7021-8 ####[facility] LABCLIA [id number] [place] [address] Eosinophils/100 WBC (Bld) 1.3 % Normal [facility] Comment on above: Order Comment: Speci men Type: BLOOD SPECIMENOrdering Facility: [facility] Address: [address] [place] [address] Performed By: #### 5 7021-8 ####[facility] LABCLIA [id number] [place] [address] Erythrocyte distribution width (RBC) [Ratio] 14.6 % Normal 11.5-15.0 [facility] Comment on above: Order Comment: Speci men Type: BLOOD SPECIMENOrdering Facility: [facility] Address: [address] [place] [address] Performed By: #### 5 7021-8 ####[facility] LABCLIA [id number] [place] [address] Hematocrit (Bld) [Volume fraction] 40.8 % Normal 36.0-46.0 [facility] Comment on above: Order Comment: Speci men Type: BLOOD SPECIMENOrdering Facility: [facility] Address: [address] [place] [address] Performed By: #### 5 7021-8 ####[facility] LABCLIA [id number] [place] [address] Hemoglobin (Bld) [Mass/Vol] 13.1 g/dL Normal 11.5-15.5 [facility] Comment on above: Order Comment: Speci men Type: BLOOD SPECIMENOrdering Facility: [facility] Address: [address] [place] [address] Performed By: #### 5 7021-8 ####[facility] LABCLIA [id number] [place] [address] Immature granulocytes (Bld) [#/Vol] 0.07 10*3/uL Normal <0.10 [facility] Comment on above: Order Comment: Speci men Type: BLOOD SPECIMENOrdering Facility: [facility] Address: [address] [place] [address] Performed By: #### 5 7021-8 ####[facility] LABCLIA [id number] [place] [address] Immature granulocytes/100 WBC (Bld) 0.6 % Normal [facility] Comment on above: Order Comment: Speci men Type: BLOOD SPECIMENOrdering Facility: [facility] Address: [address] [place] [address] Performed By: #### 5 7021-8 ####[facility] LABCLIA [id number] [place] [address] Lymphocytes (Bld) [#/Vol] 3.62 10*3/uL Normal 1.00-4.00 [facility] Comment on above: Order Comment: Speci men Type: BLOOD SPECIMENOrdering Facility: [facility] Address: [address] [place] [address] Performed By: #### 5 7021-8 ####[facility] LABCLIA [id number] [place] [address] Lymphocytes/100 WBC (Bld) 30.3 % Normal [facility] Comment on above: Order Comment: Speci men Type: BLOOD SPECIMENOrdering Facility: [facility] Address: [address] [address] Performed By: #### 5 7021-8 ####[facility] LABCLIA [id number] [place] [address] MCH (RBC) [Entitic mass] 29.2 pg Normal 26.0-34.0 [facility] Comment on above: Order Comment: Speci men Type: BLOOD SPECIMENOrdering Facility: [facility] Address: [address] [address] Performed By: #### 5 7021-8 ####[facility] LABIA [id number] [place] [address] MCHC (RBC) [Mass/Vol] 32.1 g/dL Normal 30.5-36.0 [facility] Comment on above: Order Comment: Speci men Type: BLOOD SPECIMENOrdering Facility: [facility] Address: [address] [place] [address] Performed By: #### 5 7021-8 ####[facility] LABIA [id number] [place] [address] MCV (RBC) [Entitic vol] 90.9 fL Normal 80.0-100.0 [facility] Comment on above: Order Comment: Speci men Type: BLOOD SPECIMENOrdering Facility: [facility] Address: [address] [place] [address] Performed By: #### 5 7021-8 ####[facility] LABCLIA [id number] [place] [address] Monocytes (Bld) [#/Vol] 0.66 10*3/uL Normal <0.87 [facility] Comment on above: Order Comment: Speci men Type: BLOOD SPECIMENOrdering Facility: [facility] Address: [address] [place] [address] Performed By: #### 5 7021-8 ####[facility] LABCLIA [id number] [place] [address] Monocytes/100 WBC (Bld) 5.5 % Normal [facility] Comment on above: Order Comment: Speci men Type: BLOOD SPECIMENOrdering Facility: [facility] Address: [address] [place] [address] Performed By: #### 5 7021-8 ####[facility] LABCLIA [id number] [place] [address] Neutrophils (Bld) [#/Vol] 7.35 10*3/uL Normal 1.45-7.50 [facility] Comment on above: Order Comment: Speci men Type: BLOOD SPECIMENOrdering Facility: [facility] Address: [address] [place] [address] Performed By: #### 5 7021-8 ####[facility] LABCLIA [id number] [place] [address] Neutrophils/100 WBC (Bld) 61.7 % Normal [facility] Comment on above: Order Comment: Speci men Type: BLOOD SPECIMENOrdering Facility: [facility] Address: [address] [place] [address] Performed By: #### 5 7021-8 ####[facility] LABCLIA [id number] [place] [address] Nucleated RBC (Bld) [#/Vol] 10*3/uL Normal <0.01 [facility] Comment on above: Order Comment: Speci men Type: BLOOD SPECIMENOrdering Facility: [facility] Address: [address] [place] [address] Performed By: #### 5 7021-8 ####[facility] LABCLIA [id number] [place] [address] Nucleated RBC/100 WBC (Bld) [Ratio] 0.0 /100 WBC Normal [facility] Comment on above: Order Comment: Speci men Type: BLOOD SPECIMENOrdering Facility: [facility] Address: [address] [place] [address] Performed By: #### 5 7021-8 ####[facility] LABCLIA [id number] [place] [address] Platelet mean volume (Bld) [Entitic vol] 9.7 fL Normal 9.0-12.7 [facility] Comment on above: Order Comment: Speci men Type: BLOOD SPECIMENOrdering Facility: [facility] Address: [address] [place] [address] Performed By: #### 5 7021-8 ####[facility] LABCLIA [id number] [place] [address] Platelets (Bld) [#/Vol] 295 10*3/uL Normal 150-400 [facility] Comment on above: Order Comment: Speci men Type: BLOOD SPECIMENOrdering Facility: [facility] Address: [address] [place] [address] Performed By: #### 5 7021-8 ####[facility] LABIA [id number] [place] [address] RBC (Bld) [#/Vol] 4.49 10*6/uL Normal 3.90-5.20 [facility] Comment on above: Order Comment: Speci men Type: BLOOD SPECIMENOrdering Facility: [facility] Address: [address] [place] [address] Performed By: #### 5 7021-8 ####[facility] LABCLIA [id number] [place] [address] WBC (Bld) [#/Vol] 11.93 10*3/uL High 3.70-11.00 [facility] Comment on above: Order Comment: Speci men Type: BLOOD SPECIMENOrdering Facility: [facility] Address: [address] [place] [address] Performed By: #### 5 7021-8 ####[facility] LABCLIA [id number] [place] [address] CRP SerPl-ncon 10-15-2022 CRP [Mass/Vol] 0.3 mg/dL Normal <0.9 [facility] Comment on above: Order Comment: Speci men Type: BLOOD SPECIMENOrdering Facility: [facility] Address: [address] [place] [address] Performed By: #### 1 988-5, 2885-2, 2132-9 ####[facility] [id number] [address] OF [facility] Comprehensive metabolic 2000 panelon 10-15-2022 Albumin [Mass/Vol] 4.0 g/dL Normal 3.9-4.9 [facility] Comment on above: Order Comment: Speci men Type: BLOOD SPECIMENOrdering Facility: [facility] Address: [address] [place] [address] Performed By: #### 2 532-0, 65879-7 ####[facility] LABCLIA [id number] [place] [address] ALP [Catalytic activity/Vol] 59 U/L Normal 34-123 [facility] Comment on above: Order Comment: Speci men Type: BLOOD SPECIMENOrdering Facility: [facility] Address: [address] [place] [address] Performed By: #### 2 532-0, 65700-8 ####[facility] LABCLIA [id number] [place] [address] ALT [Catalytic activity/Vol] 19 U/L Normal 7-38 [facility] Comment on above: Order Comment: Speci men Type: BLOOD SPECIMENOrdering Facility: [facility] Address: [address] [place] [address] Performed By: #### 2 532-0, 95762-8 ####[facility] LABCLIA [id number] [place] [address] Anion gap [Moles/Vol] 12 mmol/L Normal 9-18 [facility] Comment on above: Order Comment: Speci men Type: BLOOD SPECIMENOrdering Facility: [facility] Address: [address] [address] Performed By: #### 2 532-0, ####[facility] LABCLIA [id number] [place] [address] AST [Catalytic activity/Vol] 10 U/L Low 13-35 [facility] Comment on above: Order Comment: Speci men Type: BLOOD SPECIMENOrdering Facility: [facility] Address: [address] [address] Performed By: #### 2 532-0, ####[facility] LABIA [id number] [place] [address] Bilirubin [Mass/Vol] 0.2 mg/dL Normal 0.2-1.3 [facility] Comment on above: Order Comment: Speci men Type: BLOOD SPECIMENOrdering Facility: [facility] Address: [address] [address] Performed By: #### 2 532-0, ####[facility] LABIA [id number] [place] [address] Calcium [Mass/Vol] 9.6 mg/dL Normal 8.5-10.2 [facility] Comment on above: Order Comment: Speci men Type: BLOOD SPECIMENOrdering Facility: [facility] Address: [address] [place] [address] Performed By: #### 2 532-0, ####[facility] LABIA [id number] [place] [address] Chloride [Moles/Vol] 104 mmol/L Normal 97-105 [facility] Comment on above: Order Comment: Speci men Type: BLOOD SPECIMENOrdering Facility: [facility] Address: [address] [address] Performed By: #### 2 532-0, ####[facility] LABCLIA [id number] [place] [address] CO2 [Moles/Vol] 21 mmol/L Low 22-30 [facility] Comment on above: Order Comment: Speci men Type: BLOOD SPECIMENOrdering Facility: [facility] Address: [address] [place] [address] Performed By: #### 2 532-0, ####[facility] LABCLIA [id number] [place] [address] Creatinine [Mass/Vol] 0.72 mg/dL Normal 0.58-0.96 [facility] Comment on above: Order Comment: Speci men Type: BLOOD SPECIMENOrdering Facility: [facility] Address: [address] [place] [address] Performed By: #### 2 532-0, ####[facility] LABIA [id number] [place] [address] ESTIMATED GLOMERULAR FILTRATION RATE 107 mL/min/1.73m??? Normal >=60 [facility] Comment on above: Order Comment: Speci men Type: BLOOD SPECIMENOrdering Facility: [facility] Address: [address] [place] [address] Result Comment: Erin mated Glomerular Filtration Rate [...] actual GFR. Performed By: #### 2 532-0, 32758-9 ####[facility] LABIA [id number] [place] [address] Glucose [Mass/Vol] 157 mg/dL High 74-99 [facility] Comment on above: Order Comment: Speci men Type: BLOOD SPECIMENOrdering Facility: [facility] Address: [address] [phone] Result Comment: The [place] Diabetes Association (ADA) provides guidance for cutoff [...] Standards of Medical Care in Diabetes 2016, [place] [employer]. Diabetes Care. 2016.39(Suppl 1). Performed By: #### 2 532-0, 45058-2 ####[facility] LABCLIA [id number] [place] [address] Potassium [Moles/Vol] 3.8 mmol/L Normal 3.7-5.1 [facility] Comment on above: Order Comment: Speci men Type: BLOOD SPECIMENOrdering Facility: [facility] Address: [address] Performed By: #### 2 532-0, 76413-0 ####[facility] LABCLIA [id number] [place] [address] Protein [Mass/Vol] 6.8 g/dL Normal 6.3-8.0 [facility] Comment on above: Order Comment: Speci men Type: BLOOD SPECIMENOrdering Facility: [facility] Address: [address] [phone] Performed By: #### 2 532-0, 51415-1 ####[facility] LABCLIA [id number] [place] [address] Sodium [Moles/Vol] 137 mmol/L Normal 136-144 [facility] Comment on above: Order Comment: Speci men Type: BLOOD SPECIMENOrdering Facility: [facility] Address: [address] [phone] Performed By: #### 2 532-0, 97195-2 ####[facility] LABCLIA [id number] [place] [address] Urea nitrogen [Mass/Vol] 16 mg/dL Normal 7-21 [facility] Comment on above: Order Comment: Speci men Type: BLOOD SPECIMENOrdering Facility: [facility] Address: [address] [place], [place] [address] Performed By: #### 2 532-0, 87939-6 ####[facility] LABCLIA [id number] [place] [address] ESR Westergren method (Bld) [Velocity]on 10-15-2022 ESR (Bld) [Velocity] 27 mm/h High 0-20 [facility] Comment on above: Order Comment: Speci men Type: BLOOD SPECIMENOrdering Facility: [facility] Address: [address] [place] [address] Performed By: #### 4 537-7 ####[facility] [id number] [address] [place] IMMUNOFIXATION SCREEN, SERUM on 10-15-2022 MPA RESULT No M protein is identified. Normal No M protein is identified. [facility] Comment on above: Order Comment: Speci men Type: BLOOD SPECIMENOrdering Facility: [facility] Address: [address] [place], [place] [address] Performed By: #### I FESC ####[facility] [id number] [address] [place] STAFF REVIEW (MPA) Reviewed by Chapito holt MD, Ph.D ([id number]) Normal [facility] Comment on above: Order Comment: Speci men Type: BLOOD SPECIMENOrdering Facility: [facility] Address: [address] [place], [place] [address] Performed By: #### I FESC ####[facility] [id number] [place] [address] [place] IMMUNOGLOBULINS GAMon 2022 IgA [Mass/Vol] 184 mg/dL Normal 70-400 [facility] Comment on above: Order Comment: Speci men Type: BLOOD SPECIMENOrdering Facility: [facility] Address: [address] [place] [address] Performed By: #### S ERIMM ####[facility] [id number] [place] [address] [place] IgG [Mass/Vol] 540 mg/dL Low 700-1600 [facility] Comment on above: Order Comment: Speci men Type: BLOOD SPECIMENOrdering Facility: [facility] Address: [address] [place] [address] Performed By: #### S ERIMM ####[facility] [id number] [address] [place] IgM [Mass/Vol] 504 mg/dL High 40-230 [facility] Comment on above: Order Comment: Speci men Type: BLOOD SPECIMENOrdering Facility: [facility] Address: [address] [place] [address] Performed By: #### S ERIMM ####[facility] [id number] [place] [address] [place] KAPPA/FARMER,FREE,SERon 2022 Immunoglobulin light chains.kappa.free (S) [Mass/Vol] 14.2 mg/L Normal 3.3-19.4 [facility] Comment on above: Order Comment: Speci men Type: BLOOD SPECIMENOrdering Facility: [facility] Address: [address] [place] [address] Result Comment: Rare ly, increased serum free light chains levels may not be detected or accurately quantified due to prozone phenomenon or in high viscosity samples using this immunoturbidimetric assay. Correlation with other laboratory results and clinical findings is recommended.The [place] Free Light Chain was performed using the Binding Site Optilite immunoturbidimetric method. Result obtained with different assay methods or kits cannot be used interchangeably. Performed By: #### K LFRS ####[facility] [id number] [address] [place] Immunoglobulin light chains.kappa/Immunog lobulin light chains.lambda (S) [Mass ratio] 1.34 Normal 0.26-1.65 [facility] Comment on above: Order Comment: Speci men Type: BLOOD SPECIMENOrdering Facility: [facility] Address: [address] [place] [address] Performed By: #### K LFRS ####[facility] [id number] [address] [place] Immunoglobulin light chains.lambda.free [Mass/Vol] 10.6 mg/L Normal 5.7-26.3 [facility] Comment on above: Order Comment: Speci men Type: BLOOD SPECIMENOrdering Facility: [facility] Address: [address] [place] [address] Result Comment: Rare ly, increased serum free [...] Performed By: #### K LFRS ####[facility] [id number] [place] [address] [place] LDH SerPl-cCncon 10-15-2022 LDH [Catalytic activity/Vol] 155 U/L Normal 135-214 [facility] Comment on above: Order Comment: Speci men Type: BLOOD SPECIMENOrdering Facility: [facility] Address: [address] [place] [address] Performed By: #### 2 532-0, 74333-6 ####[facility] LABCLIA [id number] [place] [address] PROTEIN ELECTROPHORESIS SERU M WITH DANA (P)on 10-15-2022 Albumin [Mass/Vol] 3.92 g/dL Normal 3.43-5.41 [facility] Comment on above: Order Comment: Speci men Type: BLOOD SPECIMENOrdering Facility: [facility] Address: [address] [place] [address] Performed By: #### L [id number] ####[facility]CL[facility] [id number] [place] [address] [place] Alpha 1 globulin Elph [Mass/Vol] 0.34 g/dL Normal 0.18-0.43 [facility] Comment on above: Order Comment: Speci men Type: BLOOD SPECIMENOrdering Facility: [facility] Address: [address] [place] [address] Performed By: #### L [id number] ####[facility] [id number] [address] [place] Alpha 2 globulin Elph [Mass/Vol] 0.84 g/dL Normal 0.42-0.98 [facility] Comment on above: Order Comment: Speci men Type: BLOOD SPECIMENOrdering Facility: [facility] Address: [address] [place] [address] Performed By: #### L [id number] ####[facility] [id number] [place] [address] [place] Beta globulin Elph [Mass/Vol] 0.92 g/dL Normal 0.61-1.17 [facility] Comment on above: Order Comment: Speci men Type: BLOOD SPECIMENOrdering Facility: [facility] Address: [address] [place] [address] Performed By: #### L [id number] ####[facility] [id number] [place] [address] [place] COMMENT (SERUM PROT ELECTRO) Monoclonal Protein analysis (immunofixation) is not indicated. Normal [facility] Comment on above: Order Comment: Speci men Type: BLOOD SPECIMENOrdering Facility: [facility] Address: [address] [place] [address] Performed By: #### L [id number] ####[facility] [id number] [address] Gamma globulin Elph [Mass/Vol] 0.68 g/dL Normal 0.53-1.51 [facility] Comment on above: Order Comment: Speci men Type: BLOOD SPECIMENOrdering Facility: [facility] Address: [address] [place] [address] Performed By: #### L [id number] ####[facility] [id number] [address] M-PROTEIN LOCATION Normal [facility] Comment on above: Order Comment: Speci men Type: BLOOD SPECIMENOrdering Facility: [facility] Address: [address] [place] [address] Result Comment: Not Applicable. Performed By: #### L [id number] ####[facility] [id number] [address] [place] Protein Fractions [Interp] No definitive M protein is identified on protein electrophoresis. Normal No definitive M protein is identified on protein electrophore sis. [facility] Comment on above: Order Comment: Speci men Type: BLOOD SPECIMENOrdering Facility: [facility] Address: [address] [place] [address] Performed By: #### L [id number] ####[facility] [id number] [address] Protein.monoclonal Elph [Mass/Vol] 0.00 g/dL Normal <=0.00 [facility] Comment on above: Order Comment: Speci men Type: BLOOD SPECIMENOrdering Facility: [facility] Address: [address] [address] Performed By: #### L [id number] ####[facility] [id number] [address] SPE STAFF REVIEW Reviewed by Chapito holt MD, Ph.D ([id number]) Normal [facility] Comment on above: Order Comment: Speci men Type: BLOOD SPECIMENOrdering Facility: [facility] Address: [address] [place] [address] Performed By: #### L [id number] ####[facility] [id number] [place] [address] [facility] Prot SerPl-mCncon 10-15-2022 Protein [Mass/Vol] 6.7 g/dL Normal 6.3-8.0 [facility] Comment on above: Order Comment: Speci men Type: BLOOD SPECIMENOrdering Facility: [facility] Address: [address] [place] [address] Performed By: #### 1 988-5, 2885-2, 2132-01 ####[facility] [id number] [address] Vit B12 SerPl-ncon 023 Cobalamin (Vitamin B12) [Mass/Vol] 368 pg/mL Normal 232-1245 [facility] Comment on above: Order Comment: Speci men Type: BLOOD SPECIMENOrdering Facility: [facility] Address: [address] Performed By: #### 1 988-5, 2885-2, 9 ####[facility] [id number] [place] [address] [place] CBC AUTO DIFFon 09-24-2022 BASO # 0.1 103/ul Normal 0.0-0.1 [facility] Comment on above: Performed By: #### U AMI #### [facility] [address] [address] [address] Manda York Basophils/100 WBC (Bld) 0.6 % Normal 0.2-2.0 [facility] Comment on above: Performed By: #### U AMIC #### [facility] [address] [address] [address] Manda York EO # 0.1 103/ul Normal 0.0-0.7 [facility] Comment on above: Performed By: #### U AMIC #### [facility] [address] [address] [address] Manda York Eosinophils/100 WBC (Bld) 0.6 % Critically low 0.9-7.0 [facility] Comment on above: Performed By: #### U AMIC #### [facility] [address] [place] [address] Dr. Manda York Erythrocyte distribution width (RBC) [Ratio] 14.6 % Normal 11.0-15.0 [facility] Comment on above: Performed By: #### U AMIC #### [facility] [address] [place] [address] Dr. Manda York Hematocrit (Bld) [Volume fraction] 43.4 % Normal 36.0-48.0 [facility] Comment on above: Performed By: #### U AMIC #### [facility] [address] [place] [address] Dr. Manda York Hemoglobin (Bld) [Mass/Vol] 13.7 g/dL Normal 12.0-16.0 [facility] Comment on above: Performed By: #### U AMIC #### [facility] [address] [place] [address] Dr. Manda York IG # 0.12 10e3/ul Critically high 0.00-0.03 [facility] Comment on above: Performed By: #### U AMIC #### [facility] [address] [place] [address] Dr. Manda York IG % 0.8 % Critically high 0.0-0.5 [facility] Comment on above: Performed By: #### U AMIC #### [facility] [address] [address] [address] Manda York LYMPH # 2.6 103/ul Normal 1.2-3.8 [facility] Comment on above: Performed By: #### U AMIC #### [facility] [address] [address] [address] Manda York Lymphocytes/100 WBC (Bld) 18.3 % Critically low 20.5-60.0 [facility] Comment on above: Performed By: #### U AMIC #### [facility] [address] [address] [address] Manda York MANUAL DIFF REQ NO Normal [facility] Comment on above: Performed By: #### U AMIC #### [facility] [address] [place] [address] Dr. Manda York MCH (RBC) [Entitic mass] 29.0 pg Normal 26.7-34.0 [facility] Comment on above: Performed By: #### U AMIC #### [facility] [address] [place] [address] Dr. Manda York MCHC (RBC) [Mass/Vol] 31.6 g/dL Normal 29.9-35.2 [facility] Comment on above: Performed By: #### U AMIC #### [facility] [address] [place] [address] Dr. Manda York MCV (RBC) [Entitic vol] 91.8 fL Normal 81.0-99.0 [facility] Comment on above: Performed By: #### U AMIC #### [facility] [address] [place] [address] Dr. Manda York MONO # 0.7 103/ul Normal 0.3-0.8 [facility] Comment on above: Performed By: #### U AMIC #### [facility] [address] [address] [address] Manda York Monocytes/100 WBC (Bld) 5.1 % Normal 1.7-12.0 [facility] Comment on above: Performed By: #### U AMIC #### [facility] [address] [address] [address] Manda York NEUT # 10.6 103/ul Critically high 1.4-6.5 [facility] Comment on above: Performed By: #### U AMIC #### [facility] [address] [address] [address] Manda York Neutrophils/100 WBC (Bld) 74.6 % Normal 43.0-75.0 [facility] Comment on above: Performed By: #### U AMIC #### [facility] [address] [address] [address] Manda York Platelet mean volume (Bld) [Entitic vol] 9.4 fL Critically low 9.5-13.5 [facility] Comment on above: Performed By: #### U AMIC #### [facility] [address] [place] [address] Dr. Manda York PLT 307 103/ul Normal 150-450 [facility] Comment on above: Performed By: #### U AMIC #### [facility] [address] [address] [address] Manda York RBC 4.73 106/ul Normal 4.20-5.40 [facility] Comment on above: Performed By: #### U AMIC #### [facility] [address] [address] [address] Manda York WBC 14.2 103/ul Critically high 4.0-11.0 [facility] Comment on above: Performed By: #### U AMIC #### [facility] [address] [address] [address] Manda York CNNURSEon 09-24-2022 CNNURSE [facility] FREE T4on 09-24-2022 Free T4 [Mass/Vol] 1.31 ng/dL Normal 0.76-1.46 [facility] Comment on above: Performed By: #### F T4 #### [facility] [address] [address] [address] Manda York GLYCOHEMOGLOBIN A1Con 05-04- 2023 ADA RECOMMENDATION SEE BELOW Normal [facility] Comment on above: Result Comment: ADA RECOMMENDED LIMIT 4.0 - 6.0 ADA THERAPEUTIC TARGET < 7.0 ACTION SUGGESTED > 7.0 Performed By: #### A 1C #### [facility] [address] [place] [address] Dr. Manda York Glucose [Mass/Vol] 120 mg/dL Normal [facility] Comment on above: Performed By: #### A 1C #### [facility] [address] [place] [address] Dr. Manda York HbA1c (Bld) [Mass fraction] 5.8 % Normal 4.5-6.2 [facility] Comment on above: Performed By: #### A 1C #### [facility] [address] [place] [address] Dr. Manda York PREG QUANT HCGon 09-24-2022 HCG QUANT <1 Normal [facility] Comment on above: Performed By: #### F T4 #### [facility] [address] [place] [address] Dr. Manda York HCG RANGE SEE BELOW Normal [facility] Comment on above: Result Comment: 5-50 0.2-1 WEEK 50-500 1-2 WEEKS 100-5,000 2-3 WEEKS 500-10,000 3-4 WEEKS 1,000-50,000 4-5 WEEKS 10,000-100,000 5-6 WEEKS 15,000-200,000 6-8 WEEKS 10,000-100,000 2-3 MONTHS Performed By: #### F T4 #### [facility] [address] [place] [address] Dr. Manda York PROTIMEon 09-24-2022 INR Coag (PPP) [Relative time] {INR} Normal [facility] Comment on above: Performed By: #### F T4 #### [facility] [address] [place] [address] Dr. Manda York INR GUIDELINES SEE BELOW Normal [facility] Comment on above: Result Comment: SHERRY RED INR: 2.0 - 3.0 CONDITIONS NOT LISTED BELOW 2.5 - 3.5 FOR PROSTHETIC HEART VALVE REPLACEMENT 2.5 - 3.5 RECURRENT THROMBOSIS Performed By: #### F T4 #### [facility] [address] [address] [address] Manda York PT Coag (PPP) [Time] 9.6 s Normal 9.0-11.6 [facility] Comment on above: Performed By: #### F T4 #### [facility] [address] [place] [address] Dr. Manda York PTTon 09-24-2022 aPTT Coag (Bld) [Time] 28.2 s Normal 22.3-36.2 [facility] Comment on above: Performed By: #### F T4 #### [facility] [address] [place] [address] Dr. Manda York TSHon 09-24-2022 TSH 0.300 uIU/mL Critically low 0.358-3.740 [facility] Comment on above: Performed By: #### F T4 #### [facility] [address] [place] [address] Dr. Manda York US PELVIS TRANSVAGon 023 [...] by: AURORA SHAIKH Date: 2022-09-24 17:50 Normal [facility] PAP ACOG PANEL 2: 30 to 65on 09-18-2022 . . Normal [facility] Comment on above: Result Comment: Perf ormed at: WB Performed By: #### F T4 #### [facility] [address] [place] [address] Dr. Manda York Age Gdln ACOG Testing 30-65 Normal [facility] Comment on above: Performed By: #### F T4 #### [facility] [address] [address] [address] Manda York DIAGNOSIS: Comment Normal [facility] Comment on above: Result Comment: NEGA TIVE FOR INTRAEPITHELIAL LESION OR MALIGNANCY. Performed at: WB Performed By: #### F T4 #### [facility] [address] [place] [address] Dr. Manda York HPV Aptima Negative Normal Negative [facility] Comment on above: Result Comment: This nucleic acid amplification test detects fourteen high-risk HPV types (16,18,31,33,35,39,45,51,52,56,58,59,66,68) without differentiation. Performed at: =G Performed By: #### F T4 #### [facility] [address] [place] [address] Dr. Manda York HPV Genotype Reflex Comment Normal [facility] Comment on above: Result Comment: Crit eria not met, HPV Genotype not performed. Performed at: WB Performed By: #### F T4 #### [facility] [address] [place] [address] Dr. Manda York Methodology: Comment Normal [facility] Comment on above: Result Comment: This liquid based ThinPrep(R) pap test was screened with the use of an image guided system. Performed at: WB Performed By: #### F T4 #### [facility] [address] [place] [address] Dr. Manda York Note: Comment Normal [facility] Comment on above: Result Comment: The Pap smear is a screening test designed to aid in the detection of premalignant and malignant conditions of the uterine cervix. It is not a diagnostic procedure and should not be used as the sole means of detecting cervical cancer. Both false-positive and false-negative reports do occur. . Performed at: WB Performed By: #### F T4 #### [facility] [address] [place], [place] [address] Dr. Manda York Performed by: Comment Normal [facility] Comment on above: Result Comment: Lorena Peters, Brace Maker (ASCP) Performed at: WB Performed By: #### F T4 #### [facility] [address] [place], [place] [address] Dr. Manda York Specimen adequacy: Comment Normal [facility] Comment on above: Result Comment: Sati sfactory for evaluation. Endocervical and/or squamous metaplastic cells (endocervical component) are present. Performed at: WB Performed By: #### F T4 #### [facility] [address] [address] [address] Manda York CNPNon 09-08-2022 CNPN Normal [facility] MG MAMM SCREEN 3D MARK CADon 09-01-2022 MG MAMM SCREEN 3D MARK CAD Patient: JONES HALEY Exam Date: 09/01/2022 : 1980 Gender:F Ordering : DR MADELAINE FERRIS . Admission #: [id number] Family : Order #: [id number] CLICK HERE TO VIEW EXAM RADIOLOGY REPORT [...] stomach cancer at age 56. LOCATION: [facility] BREAST COMPOSITION: Scattered areas fibroglandular density. FINDINGS: [...] Yusuf M.D. on 09/02/2022 at 12:32 Normal [facility] CNNURSEon 08-27-2022 CNNURSE Normal [facility] CNOVSPon 08-27-2022 CNOVSP Normal [facility] CNPNon 08-19-2022 CNPN Normal [facility] 25(OH)D3 SerPl-mCncon 2022 25-hydroxyvitamin D3 [Mass/Vol] 33.1 ng/mL Normal 31.0-80.0 [facility] Comment on above: Order Comment: Speci men Type: BLOOD SPECIMENOrdering Facility: [facility] Address: [address] [place] [address] Result Comment: Clas sification of 25 [place] Vitamin D status:Deficiency/Insufficiency: < or = 30 ng/ml.Sufficiency/Optimal Levels: 31-80 ng/mLToxicity: > 100 ng/mL.Test performed by chemiluminescent immunoassay. Performed By: #### 1 989-3 ####[facility] [id number] [place] [address] [place] B2 Microglob [facility] Fzss-2-Oewbxhbqfivpc [Mass/Vol] 1.6 ug/mL Normal 0.8-2.4 [facility] Comment on above: Order Comment: Semaj cortés Type: BLOOD SPECIMENOrdering Facility: [facility] Address: [address] [place] [address] Result Comment: Beta -2 Microglobulin test is performed using the [employer] immunoturbidimetric method. Results obtained with different methods or kits cannot be used interchangeably. Performed By: #### 1 952-1, 1988-5, 2885-2, 2132-9 ####[facility] [id number] [place] [address] [place] CBC W Auto Differential pane l (Bld)on 08-18-2022 Basophils (Bld) [#/Vol] 0.03 10*3/uL Normal <0.11 [facility] Comment on above: Order Comment: Speci men Type: BLOOD SPECIMENOrdering Facility: [facility] Address: [address] [address] Performed By: #### 5 7021-8 ####[facility] LABCLIA [id number] [place] [address] Basophils/100 WBC (Bld) 0.2 % Normal [facility] Comment on above: Order Comment: Speci men Type: BLOOD SPECIMENOrdering Facility: [facility] Address: [address] [address] Performed By: #### 5 7021-8 ####[facility] LABCLIA [id number] [place] [address] Differential cell count method Nom (Bld) Auto Normal [facility] Comment on above: Order Comment: Speci men Type: BLOOD SPECIMENOrdering Facility: [facility] Address: [address] [address] Performed By: #### 5 7021-8 ####[facility] LABCLIA [id number] [place] [address] Eosinophils (Bld) [#/Vol] 0.08 10*3/uL Normal <0.46 [facility] Comment on above: Order Comment: Speci men Type: BLOOD SPECIMENOrdering Facility: [facility] Address: [address] [address] Performed By: #### 5 7021-8 ####[facility] LABCLIA [id number] [place] [address] Eosinophils/100 WBC (Bld) 0.5 % Normal [facility] Comment on above: Order Comment: Speci men Type: BLOOD SPECIMENOrdering Facility: [facility] Address: [address] [place] [address] Performed By: #### 5 7021-8 ####[facility] LABCLIA [id number] [place] [address] Erythrocyte distribution width (RBC) [Ratio] 14.6 % Normal 11.5-15.0 [facility] Comment on above: Order Comment: Speci men Type: BLOOD SPECIMENOrdering Facility: [facility] Address: [address] [place] [address] Performed By: #### 5 7021-8 ####[facility] LABCLIA [id number] [place] [address] Hematocrit (Bld) [Volume fraction] 41.1 % Normal 36.0-46.0 [facility] Comment on above: Order Comment: Speci men Type: BLOOD SPECIMENOrdering Facility: [facility] Address: [address] [place] [address] Performed By: #### 5 7021-8 ####[facility] LABCLIA [id number] [place] [address] Hemoglobin (Bld) [Mass/Vol] 13.1 g/dL Normal 11.5-15.5 [facility] Comment on above: Order Comment: Speci men Type: BLOOD SPECIMENOrdering Facility: [facility] Address: [address] [place] [address] Performed By: #### 5 7021-8 ####[facility] LABCLIA [id number] [place] [address] Immature granulocytes (Bld) [#/Vol] 0.11 10*3/uL High <0.10 [facility] Comment on above: Order Comment: Speci men Type: BLOOD SPECIMENOrdering Facility: [facility] Address: [address] [place] [address] Performed By: #### 5 7021-8 ####[facility] LABCLIA [id number] [place] [address] Immature granulocytes/100 WBC (Bld) 0.7 % Normal [facility] Comment on above: Order Comment: Speci men Type: BLOOD SPECIMENOrdering Facility: [facility] Address: [address] [place] [address] Performed By: #### 5 7021-8 ####[facility] LABCLIA [id number] [place] [address] Lymphocytes (Bld) [#/Vol] 3.19 10*3/uL Normal 1.00-4.00 [facility] Comment on above: Order Comment: Speci men Type: BLOOD SPECIMENOrdering Facility: [facility] Address: [address] [place] [address] Performed By: #### 5 7021-8 ####[facility] LABCLIA [id number] [place] [address] Lymphocytes/100 WBC (Bld) 21.7 % Normal [facility] Comment on above: Order Comment: Speci men Type: BLOOD SPECIMENOrdering Facility: [facility] Address: [address] [place] [address] Performed By: #### 5 7021-8 ####[facility] LABCLIA [id number] [place] [address] MCH (RBC) [Entitic mass] 28.9 pg Normal 26.0-34.0 [facility] Comment on above: Order Comment: Speci men Type: BLOOD SPECIMENOrdering Facility: [facility] Address: [address] [place] [address] Performed By: #### 5 7021-8 ####[facility] LABCLIA [id number] [place] [address] MCHC (RBC) [Mass/Vol] 31.9 g/dL Normal 30.5-36.0 [facility] Comment on above: Order Comment: Speci men Type: BLOOD SPECIMENOrdering Facility: [facility] Address: [address] [place] [address] Performed By: #### 5 7021-8 ####[facility] LABCLIA [id number] [place] [address] MCV (RBC) [Entitic vol] 90.7 fL Normal 80.0-100.0 [facility] Comment on above: Order Comment: Speci men Type: BLOOD SPECIMENOrdering Facility: [facility] Address: [address] [address] Performed By: #### 5 7021-8 ####[facility] LABCLIA [id number] [place] [address] Monocytes (Bld) [#/Vol] 0.87 10*3/uL High <0.87 [facility] Comment on above: Order Comment: Speci men Type: BLOOD SPECIMENOrdering Facility: [facility] Address: [address] [address] Performed By: #### 5 7021-8 ####[facility] LABCLIA [id number] [place] [address] Monocytes/100 WBC (Bld) 5.9 % Normal [facility] Comment on above: Order Comment: Speci men Type: BLOOD SPECIMENOrdering Facility: [facility] Address: [address] [address] Performed By: #### 5 7021-8 ####[facility] LABCLIA [id number] [place] [address] Neutrophils (Bld) [#/Vol] 10.44 10*3/uL High 1.45-7.50 [facility] Comment on above: Order Comment: Speci men Type: BLOOD SPECIMENOrdering Facility: [facility] Address: [address] [address] Performed By: #### 5 7021-8 ####[facility] LABCLIA [id number] [place] [address] Neutrophils/100 WBC (Bld) 71.0 % Normal [facility] Comment on above: Order Comment: Speci men Type: BLOOD SPECIMENOrdering Facility: [facility] Address: [address] [address] Performed By: #### 5 7021-8 ####[facility] LABCLIA [id number] [place] [address] Nucleated RBC (Bld) [#/Vol] 10*3/uL Normal <0.01 [facility] Comment on above: Order Comment: Speci men Type: BLOOD SPECIMENOrdering Facility: [facility] Address: [address] [place] [address] Performed By: #### 5 7021-8 ####[facility] LABCLIA [id number] [place] [address] Nucleated RBC/100 WBC (Bld) [Ratio] 0.0 /100 WBC Normal [facility] Comment on above: Order Comment: Speci men Type: BLOOD SPECIMENOrdering Facility: [facility] Address: [address] [place] [address] Performed By: #### 5 7021-8 ####[facility] LABCLIA [id number] [place] [address] Platelet mean volume (Bld) [Entitic vol] 9.8 fL Normal 9.0-12.7 [facility] Comment on above: Order Comment: Speci men Type: BLOOD SPECIMENOrdering Facility: [facility] Address: [address] [place] [address] Performed By: #### 5 7021-8 ####[facility] LABCLIA [id number] [place] [address] Platelets (Bld) [#/Vol] 309 10*3/uL Normal 150-400 [facility] Comment on above: Order Comment: Speci men Type: BLOOD SPECIMENOrdering Facility: [facility] Address: [address] [place] [address] Performed By: #### 5 7021-8 ####[facility] LABCLIA [id number] [place] [address] RBC (Bld) [#/Vol] 4.53 10*6/uL Normal 3.90-5.20 [facility] Comment on above: Order Comment: Speci men Type: BLOOD SPECIMENOrdering Facility: [facility] Address: [address] Performed By: #### 5 7021-8 ####[facility] LABCLIA [id number] [place] [address] WBC (Bld) [#/Vol] 14.72 10*3/uL High 3.70-11.00 [facility] Comment on above: Order Comment: Speci men Type: BLOOD SPECIMENOrdering Facility: [facility] Address: [address] [address] Performed By: #### 5 7021-8 ####[facility] LABCLIA [id number] [place] [address] CRP [facility] CRP [Mass/Vol] 0.3 mg/dL Normal <0.9 [facility] Comment on above: Order Comment: Speci men Type: BLOOD SPECIMENOrdering Facility: [facility] Address: [address] [place] [address] Performed By: #### 1 952-1, 1987-09, 5-2, 2139 ####[facility]CLIA [id number] [place] [address] [place] Calcium.ionized [Moles/Vol]o n 08-18-2022 Calcium.ionized (Bld) [Mass/Vol] 1.29 mmol/L Normal 1.08-1.30 [facility] Comment on above: Order Comment: Speci men Type: BLOOD SPECIMENOrdering Facility: [facility] Address: [address] Performed By: #### 1 995-0 ####[facility]CL[facility] [id number] [place] [address] [place] Calcium.ionized adjusted to pH 7.4 (Bld) [Moles/Vol] 1.27 mmol/L Normal 1.08-1.30 [facility] Comment on above: Order Comment: Speci men Type: BLOOD SPECIMENOrdering Facility: [facility] Address: [address] [place] [address] Performed By: #### 1 995-0 ####[facility]CLIA [id number] [facility] [id number] [place] [id number] [facility] Comprehensive metabolic 2000 panelon 08-18-2022 Albumin [Mass/Vol] 4.2 g/dL Normal 3.9-4.9 [facility] Comment on above: Order Comment: Speci men Type: BLOOD SPECIMENOrdering Facility: [facility] Address: [address] [place] [address] Performed By: #### 2 532-0, 2777-1, 3084-1, 84689-1 ####[facility] LABCLIA [id number] [place] [address] ALP [Catalytic activity/Vol] 66 U/L Normal 34-123 [facility] Comment on above: Order Comment: Speci men Type: BLOOD SPECIMENOrdering Facility: [facility] Address: [address] [place] [address] Performed By: #### 2 532-0, 2777-1, 3084-1, 18220-8 ####[facility] LABCLIA [id number] [place] [address] ALT [Catalytic activity/Vol] 22 U/L Normal 7-38 [facility] Comment on above: Order Comment: Speci men Type: BLOOD SPECIMENOrdering Facility: [facility] Address: [place] [address] Performed By: #### 2 532-0, 2777-1, 3084-1, 98547-8 ####[facility] LABCLIA [id number] [place] [address] Anion gap [Moles/Vol] 11 mmol/L Normal 9-18 [facility] Comment on above: Order Comment: Speci men Type: BLOOD SPECIMENOrdering Facility: [facility] Address: [address] [place] [address] Performed By: #### 2 532-0, 2776-1, 3083-05, ####[facility] LABCLIA [id number] [place] [address] AST [Catalytic activity/Vol] 9 U/L Low 13-35 [facility] Comment on above: Order Comment: Speci men Type: BLOOD SPECIMENOrdering Facility: [facility] Address: [address] [place] [address] Performed By: #### 2 532-0, 277-1, 3083-05, ####[facility] LABIA [id number] [place] [address] Bilirubin [Mass/Vol] 0.2 mg/dL Normal 0.2-1.3 [facility] Comment on above: Order Comment: Speci men Type: BLOOD SPECIMENOrdering Facility: [facility] Address: [address] [place] [address] Performed By: #### 2 532-0, 277-1, 3083-05, ####[facility] LABIA [id number] [place] [address] Calcium [Mass/Vol] 9.3 mg/dL Normal 8.5-10.2 [facility] Comment on above: Order Comment: Speci men Type: BLOOD SPECIMENOrdering Facility: [facility] Address: [address] [place], [place] [address] Performed By: #### 2 532-0, 277-1, 3083-05, ####[facility] LABIA [id number] [place] [address] Chloride [Moles/Vol] 106 mmol/L High 97-105 [facility] Comment on above: Order Comment: Speci men Type: BLOOD SPECIMENOrdering Facility: [facility] Address: [address] [place], [place] [address] Performed By: #### 2 532-0, 2777-1, 3083-05, 58959-0 ####[facility] LABCLIA [id number] [place] [address] CO2 [Moles/Vol] 23 mmol/L Normal 22-30 [facility] Comment on above: Order Comment: Speci men Type: BLOOD SPECIMENOrdering Facility: [facility] Address: [address] [place], [place] [address] Performed By: #### 2 532-0, 2777-1, 3083-05, ####[facility] LABCLIA [id number] [place] [address] Creatinine [Mass/Vol] 0.68 mg/dL Normal 0.58-0.96 [facility] Comment on above: Order Comment: Speci men Type: BLOOD SPECIMENOrdering Facility: [facility] Address: [address] [place], [place] [address] Performed By: #### 2 532-0, 2777-1, 3083-05, ####[facility] LABCLIA [id number] [place] [address] ESTIMATED GLOMERULAR FILTRATION RATE 112 mL/min/1.73m??? Normal >=60 [facility] Comment on above: Order Comment: Speci men Type: BLOOD SPECIMENOrdering Facility: [facility] Address: [address] [place] [address] Result Comment: Erin mated Glomerular Filtration Rate [...] GFR. Performed By: #### 2 532-0, 2777-1, 3083-, 40168-8 ####[facility] LABCLIA [id number] [place] [address] Glucose [Mass/Vol] 119 mg/dL High 74-99 [facility] Comment on above: Order Comment: Speci men Type: BLOOD SPECIMENOrdering Facility: [facility] Address: [address] [place], [place] [address] Result Comment: The [place] Diabetes Association (ADA) provides guidance for cutoff [...] Standards of Medical Care in Diabetes 2016, [place] [employer] Association. Diabetes Care. 2016.39(Suppl 1). Performed By: #### 2 532-0, 2777-1, 3084-1, 83079-6 ####[facility] LABCLIA [id number] [place] [address] Potassium [Moles/Vol] 3.7 mmol/L Normal 3.7-5.1 [facility] Comment on above: Order Comment: Speci men Type: BLOOD SPECIMENOrdering Facility: [facility] Address: [address] [place], [place] [address] Performed By: #### 2 532-0, 2777-1, 308-1, 70079-6 ####[facility] LABIA [id number] [place] [address] Protein [Mass/Vol] 7.1 g/dL Normal 6.3-8.0 [facility] Comment on above: Order Comment: Speci men Type: BLOOD SPECIMENOrdering Facility: [facility] Address: [address] [place], [place] [address] Performed By: #### 2 532-0, 2777-1, 3084-1, 29422-2 ####[facility] LABCLIA [id number] [place] [address] Sodium [Moles/Vol] 140 mmol/L Normal 136-144 [facility] Comment on above: Order Comment: Speci men Type: BLOOD SPECIMENOrdering Facility: [facility] Address: [address] [place] [address] Performed By: #### 2 532-0, 2777-1, 3084-1, 11356-7 ####[facility] LABCLIA [id number] [place] [address] Urea nitrogen [Mass/Vol] 11 mg/dL Normal 7-21 [facility] Comment on above: Order Comment: Speci men Type: BLOOD SPECIMENOrdering Facility: [facility] Address: [address] [place] [address] Performed By: #### 2 532-0, 2777-1, 3084-1, 02118-7 ####[facility] LABCLIA [id number] [place] [address] ESR Westergren method (Bld) [Velocity]on 08-18-2022 ESR (Bld) [Velocity] 25 mm/h High 0-20 [facility] Comment on above: Order Comment: Speci men Type: BLOOD SPECIMENOrdering Facility: [facility] Address: [address] [place] [address] Performed By: #### 4 537-7 ####[facility] LABCLIA [id number] [facility] [id number] [address] [place] [facility] IMMUNOFIXATION SCREEN, SERUM on 08-18-2022 MPA RESULT No M protein is identified. Normal No M protein is identified. [facility] Comment on above: Order Comment: Speci men Type: BLOOD SPECIMENOrdering Facility: [facility] Address: [address] [place] [address] Performed By: #### I [facility] ####[facility] LABCLIA [id number] [address] OF [place] STAFF REVIEW ([facility]) Reviewed by Dr. Gregg Ortez MD Normal [facility] Comment on above: Order Comment: Speci men Type: BLOOD SPECIMENOrdering Facility: [facility] Address: [address] [place] [address] Performed By: #### I FES ####[facility] LABCLIA [id number] [place] [address] [place] IMMUNOGLOBULINS GAMon 2022 IgA [Mass/Vol] 188 mg/dL Normal 70-400 [facility] Comment on above: Order Comment: Speci men Type: BLOOD SPECIMENOrdering Facility: [facility] Address: [address] [place] [address] Performed By: #### S ERIMM ####[facility] LABIA [id number] [place] [address] [place] IgG [Mass/Vol] 591 mg/dL Low 700-1600 [facility] Comment on above: Order Comment: Speci men Type: BLOOD SPECIMENOrdering Facility: [facility] Address: [address] [place] [address] Performed By: #### S ERIMM ####[facility] LABIA [id number] [place] [address] [place] IgM [Mass/Vol] 513 mg/dL High 40-230 [facility] Comment on above: Order Comment: Speci men Type: BLOOD SPECIMENOrdering Facility: [facility] Address: [address] [place] [address] Performed By: #### S ERIMM ####[facility] LABIA [id number] [place] [address] [place] KAPPA/FARMER,FREE,SERon 2022 Immunoglobulin light chains.kappa.free (S) [Mass/Vol] 13.9 mg/L Normal 3.3-19.4 [facility] Comment on above: Order Comment: Speci men Type: BLOOD SPECIMENOrdering Facility: [facility] Address: [address] [place] [address] Result Comment: Rare ly, increased serum free light chains levels may not be detected or accurately quantified due to prozone phenomenon or in high viscosity samples using this immunoturbidimetric assay. Correlation with other laboratory results and clinical findings is recommended.The [place] Free Light Chain was performed using the Binding Site Optilite immunoturbidimetric method. Result obtained with different assay methods or kits cannot be used interchangeably. Performed By: #### K LFRS ####[facility] LABCLIA [id number] [place] [address] [place] Immunoglobulin light chains.kappa/Immunog lobulin light chains.lambda (S) [Mass ratio] 1.51 Normal 0.26-1.65 [facility] Comment on above: Order Comment: Speci men Type: BLOOD SPECIMENOrdering Facility: [facility] Address: [address] [place] [address] Performed By: #### K LFRS ####[facility] LABCLIA [id number] [place] [address] [place] Immunoglobulin light chains.lambda.free [Mass/Vol] 9.2 mg/L Normal 5.7-26.3 [facility] Comment on above: Order Comment: Speci men Type: BLOOD SPECIMENOrdering Facility: [facility] Address: [address] [place] [address] Result Comment: Rare ly, increased serum free [...] Performed By: #### K LFRS ####[facility] LABCLIA [id number] [place] [address] [place] LDH SerPl-cCncon 08-18-2022 LDH [Catalytic activity/Vol] 164 U/L Normal 135-214 [facility] Comment on above: Order Comment: Speci men Type: BLOOD SPECIMENOrdering Facility: [facility] Address: [address] [place] [address] Performed By: #### 2 532-0, 2777-1, 3084-1, 12216-1 ####[facility] LABCLIA [id number] [place] [address] PROTEIN ELECTROPHORESIS SERU M (P)on 08-18-2022 Albumin [Mass/Vol] 3.95 g/dL Normal 3.43-5.41 [facility] Comment on above: Order Comment: Speci men Type: BLOOD SPECIMENOrdering Facility: [facility] Address: [address] [place] [address] Performed By: #### L [id number] ####[facility] LABCLIA [id number] [place] [address] [place] Alpha 1 globulin Elph [Mass/Vol] 0.35 g/dL Normal 0.18-0.43 [facility] Comment on above: Order Comment: Speci men Type: BLOOD SPECIMENOrdering Facility: [facility] Address: [address] [place] [address] Performed By: #### L [id number] ####[facility] LABCLIA [id number] [place] [address] [place] Alpha 2 globulin Elph [Mass/Vol] 0.80 g/dL Normal 0.42-0.98 [facility] Comment on above: Order Comment: Speci men Type: BLOOD SPECIMENOrdering Facility: [facility] Address: [address] [place] [address] Performed By: #### L [id number] ####[facility] LABIA [id number] [address] [place] Beta globulin Elph [Mass/Vol] 1.06 g/dL Normal 0.61-1.17 [facility] Comment on above: Order Comment: Speci men Type: BLOOD SPECIMENOrdering Facility: [facility] Address: [address] [place] [address] Performed By: #### L [id number] ####[facility] LABCLIA [id number] [address] Gamma globulin Elph [Mass/Vol] 0.74 g/dL Normal 0.53-1.51 [facility] Comment on above: Order Comment: Speci men Type: BLOOD SPECIMENOrdering Facility: [facility] Address: [address] [place] [address] Performed By: #### L [id number] ####[facility] LABIA [id number] [address] OF [facility] M-PROTEIN LOCATION Normal [facility] Comment on above: Order Comment: Speci men Type: BLOOD SPECIMENOrdering Facility: [facility] Address: [address] [place] [address] Result Comment: Not Applicable. Performed By: #### L [id number] ####[facility] LABCLIA [id number] [place] [address] [place] Protein Fractions [Interp] No definitive M protein is identified on protein electrophoresis. Normal No definitive M protein is identified on protein electrophore sis. [facility] Comment on above: Order Comment: Speci men Type: BLOOD SPECIMENOrdering Facility: [facility] Address: [address] [place] [address] Performed By: #### L [id number] ####[facility] LABCLIA [id number] [address] [place] Protein.monoclonal Elph [Mass/Vol] 0.00 g/dL Normal <=0.00 [facility] Comment on above: Order Comment: Speci men Type: BLOOD SPECIMENOrdering Facility: [facility] Address: [address] [place] [address] Performed By: #### L [id number] ####[facility] LABCLIA [id number] [place] [address] [place] SPE STAFF REVIEW Reviewed by Dr. Gregg Ortez MD [facility] Comment on above: Order Comment: Speci men Type: BLOOD SPECIMENOrdering Facility: [facility] Address: [address] [place] [address] Performed By: #### L [id number] ####[facility] LABCLIA [id number] [place] [address] [place] Phosphate SerPl-mCncon 08-18 Phosphate [Mass/Vol] 3.6 mg/dL Normal 2.7-4.8 [facility] Comment on above: Order Comment: Speci men Type: BLOOD SPECIMENOrdering Facility: [facility] Address: [address] [place] [address] Performed By: #### 2 532-0, 2777-1, 3084-1, 01806-9 ####[facility] LABCLIA [id number] [place] [address] Prot SerPl-mCncon 08-18-2022 Protein [Mass/Vol] 6.9 g/dL Normal 6.3-8.0 [facility] Comment on above: Order Comment: Speci men Type: BLOOD SPECIMENOrdering Facility: [facility] Address: [address] [place] [address] Performed By: #### 1 952-1, 1988-5, 2885-2, 2132-9 ####[facility] LABCLIA [id number] [place] [address] [place] Urate SerPl-mCncon Urate [Mass/Vol] 3.8 mg/dL Normal 2.5-6.6 [facility] Comment on above: Order Comment: Speci men Type: BLOOD SPECIMENOrdering Facility: [facility] Address: [place] [facility] [address] Performed By: #### 2 532-0, 2777-1, 3084-1, 09457-3 ####[facility] LABCLIA [id number] [place] [address] Vit B12 [facility] 023 Cobalamin (Vitamin B12) [Mass/Vol] 325 pg/mL Normal 232-1245 [facility] Comment on above: Order Comment: Speci men Type: BLOOD SPECIMENOrdering Facility: [facility] Address: [place] [address] Performed By: #### 1 952-1, 1988-5, 2885-2, 2131-9 ####[facility] LABCLIA [id number] [address] [address] [facility] [place] CNPNon 07-28-2022 CNPN Normal [facility] CNPNon 07-24-2022 CNPN Normal [facility] MRI KNEE RT WO CONon 022 MRI [...] MADELAINE GOMEZ Date: 2022-04-01 08:24 Normal [facility] PNEUMOCOCCAL IGG ABS, 23 SER OTYPESon 03-21-2022 Pneumococcal Interpretation See Note [facility] S. pneumoniae 1 IgG (S) [Mass/Vol] 0.27 ug/mL [facility] S. pneumoniae 12 IgG (S) [Mass/Vol] 0.08 ug/mL [facility] S. pneumoniae 14 IgG (S) [Mass/Vol] 0.19 ug/mL [facility] S. pneumoniae 17 IgG (S) [Mass/Vol] 1.72 ug/mL [facility] S. pneumoniae 19 IgG (S) [Mass/Vol] 1.52 ug/mL [facility] S. pneumoniae 2 IgG (S) [Mass/Vol] 0.44 ug/mL [facility] S. pneumoniae 20 IgG (S) [Mass/Vol] 1.53 ug/mL [facility] S. pneumoniae 22 IgG (S) [Mass/Vol] 0.99 ug/mL [facility] S. pneumoniae 23 IgG (S) [Mass/Vol] 0.14 ug/mL [facility] S. pneumoniae 3 IgG (S) [Mass/Vol] 0.36 ug/mL [facility] S. pneumoniae 34 IgG (S) [Mass/Vol] 5.77 ug/mL [facility] S. pneumoniae 4 IgG (S) [Mass/Vol] 0.06 ug/mL [facility] S. pneumoniae 43 IgG (S) [Mass/Vol] 0.93 ug/mL [facility] S. pneumoniae 5 IgG (S) [Mass/Vol] 0.89 ug/mL [facility] S. pneumoniae 8 IgG (S) [Mass/Vol] 0.58 ug/mL [facility] S. pneumoniae 9 IgG (S) [Mass/Vol] 0.4 ug/mL [facility] S. pneumoniae Romanian type 15B IgG (S) [Mass/Vol] 8.27 ug/mL [facility] S. pneumoniae Romanian type 18C IgG (S) [Mass/Vol] 0.39 ug/mL [facility] S. pneumoniae Romanian type 19A IgG (S) [Mass/Vol] 17.72 ug/mL [facility] S. pneumoniae Romanian type 33F IgG (S) [Mass/Vol] 3.04 ug/mL [facility] S. pneumoniae Romanian type 6B IgG (S) [Mass/Vol] 0.82 ug/mL [facility] S. pneumoniae Romanian type 7F IgG (S) [Mass/Vol] 0.34 ug/mL [facility] S. pneumoniae Romanian type 9V IgG (S) [Mass/Vol] 0.78 ug/mL [facility] XR KNEE RT 4V or >on [...] by: KRISTINA GARRETT Date: 2022-03-21 16:47 Normal [facility] DIPHTHER/TETANUS ABon 2021 C. diphtheriae IgG Qn (S) 0.1 IU/mL [facility] C. tetani toxoid IgG IA Qn 1 IU/mL [facility] IGA BLDon 03-18-2022 IgA [Mass/Vol] 182 mg/dL 70 - 400 mg/dL [facility] IGE BLDon 03-18-2022 IgE Qn 12.3 kU/l <114.0 kU/l [facility] IGGon 03-18-2022 IgG [Mass/Vol] 618 mg/dL Low 700 - 1,600 mg/dL [facility] IGMon 03-18-2022 IgM [Mass/Vol] 514 mg/dL High 40 - 230 mg/dL [facility] Immunodeficiency panel FC (B ld)on 03-18-2022 CD3 cells (Bld) [#/Vol] 2841 cells/uL High 958 - 2,388 cells/uL [facility] CD3 cells/100 cells (Bld) 81 % 60 - 89 % [facility] CD3+CD4+ (T4 helper) cells (Bld) [#/Vol] 1621 cells/uL 533 - 1,674 cells/uL [facility] CD3+CD4+ (T4 helper) cells/100 cells (Bld) 46 % 34 - 61 % [facility] CD3+CD4+ (T4 helper) cells/CD3+CD8+ (T8 suppressor cells) cells (Bld) [# ratio] 1.55 % 1.10 - 3.25 [facility] CD3+CD8+ (T8 suppressor cells) cells (Bld) [#/Vol] 1049 cells/uL High 175 - 958 cells/uL [facility] CD3+CD8+ (T8 suppressor cells) cells/100 cells (Bld) 30 % 10 - 41 % [facility] CD3-CD16+CD56+ (Natural killer) cells (Bld) [#/Vol] 193 cells/uL 102 - 565 cells/uL [facility] CD3-CD16+CD56+ (Natural killer) cells/100 cells (Bld) 5 % 5 - 25 % [facility] CD3-CD19+ cells (Bld) [#/Vol] 475 cells/uL 75 - 660 cells/uL [facility] CD3-CD19+ cells/100 cells (Bld) 13 % 5 - 22 % [facility] CBC W Auto Differential pane l (Bld)on 03-17-2022 Basophils (Bld) [#/Vol] 0.07 10*3/uL <0.11 k/uL [facility] Basophils/100 WBC (Bld) 0.6 % [facility] Differential cell count method Nom (Bld) Auto [facility] Eosinophils (Bld) [#/Vol] 0.18 10*3/uL <0.46 k/uL [facility] Eosinophils/100 WBC (Bld) 1.6 % [facility] Erythrocyte distribution width (RBC) [Ratio] 14.6 % 11.5 - 15.0 % [facility] Hematocrit (Bld) [Volume fraction] 40.5 % 36.0 - 46.0 % [facility] Hemoglobin (Bld) [Mass/Vol] 13.0 g/dL 11.5 - 15.5 g/dL [facility] Immature granulocytes (Bld) [#/Vol] 0.06 10*3/uL <0.10 k/uL [facility] Immature granulocytes/100 WBC (Bld) 0.5 % [facility] Lymphocytes (Bld) [#/Vol] 2.97 10*3/uL 1.00 - 4.00 k/uL [facility] Lymphocytes/100 WBC (Bld) 26.9 % [facility] MCH (RBC) [Entitic mass] 28.4 pg 26.0 - 34.0 pg [facility] MCHC (RBC) [Mass/Vol] 32.1 g/dL 30.5 - 36.0 g/dL [facility] MCV (RBC) [Entitic vol] 88.4 fL 80.0 - 100.0 fL [facility] Monocytes (Bld) [#/Vol] 0.79 10*3/uL <0.87 k/uL [facility] Monocytes/100 WBC (Bld) 7.2 % [facility] Neutrophils (Bld) [#/Vol] 6.97 10*3/uL 1.45 - 7.50 k/uL [facility] Neutrophils/100 WBC (Bld) 63.2 % [facility] Nucleated RBC (Bld) [#/Vol] <0.01 k/uL [facility] Nucleated RBC/100 WBC (Bld) [Ratio] 0.0 /100 WBC [facility] Platelet mean volume (Bld) [Entitic vol] 9.9 fL 9.0 - 12.7 fL [facility] Platelets (Bld) [#/Vol] 314 10*3/uL 150 - 400 k/uL [facility] RBC (Bld) [#/Vol] 4.58 10*6/uL 3.90 - 5.2 0 m/uL [facility] WBC (Bld) [#/Vol] 11.04 10*3/uL High 3.70 - 11 .00 k/uL [facility] ECHOCARDIO M/2D COMPLETEon 1 ECHOCARDIO M/2D COMPLETE Patient: JONES HALEY Exam Date: 03/12/2022 : 1980 Gender:F Ordering : DR MADELAINE FERRIS . Admission #: [id number] Family : Order #: [id number] CLICK HERE TO VIEW EXAM ECHOCARDIOGRAM REPORT [...] M.D. on 03/16/2022 at 16:47 Normal [facility] INSULINon 03-11-2022 Insulin 17.8 uIU/mL Normal 2.6-24.9 [facility] Comment on above: Performed By: #### C BC #### [facility] [address] [place] [address] Dr. Manda York CBC AUTO DIFFon 03-09-2022 BASO # 0.1 103/ul Normal 0.0-0.1 [facility] Comment on above: Performed By: #### C BC #### [facility] [address] [place] [address] Dr. Manda York Basophils/100 WBC (Bld) 0.4 % Normal 0.2-2.0 [facility] Comment on above: Performed By: #### C BC #### [facility] [address] [place] [address] Dr. Manda York EO # 0.2 103/ul Normal 0.0-0.7 [facility] Comment on above: Performed By: #### C BC #### [facility] [address] [place] [address] Dr. Manda York Eosinophils/100 WBC (Bld) 1.2 % Normal 0.9-7.0 [facility] Comment on above: Performed By: #### C BC #### [facility] [address] [place] [address] Dr. Manda York Erythrocyte distribution width (RBC) [Ratio] 14.6 % Normal 11.0-15.0 [facility] Comment on above: Performed By: #### C BC #### [facility] [address] [place] [address] Dr. Manda York Hematocrit (Bld) [Volume fraction] 39.2 % Normal 36.0-48.0 [facility] Comment on above: Performed By: #### C BC #### [facility] [address] [place] [address] Dr. Manda York Hemoglobin (Bld) [Mass/Vol] 12.7 g/dL Normal 12.0-16.0 [facility] Comment on above: Performed By: #### C BC #### [facility] [address] [place] [address] Dr. Manda York IG # 0.06 10e3/ul Critically high 0.00-0.03 [facility] Comment on above: Performed By: #### C BC #### [facility] [address] [place] [address] Dr. Manda York IG % 0.5 % Normal 0.0-0.5 [facility] Comment on above: Performed By: #### C BC #### [facility] [address] [place] [address] Dr. Manda York LYMPH # 3.7 103/ul Normal 1.2-3.8 [facility] Comment on above: Performed By: #### C BC #### [facility] [address] [place] [address] Dr. Manda York Lymphocytes/100 WBC (Bld) 31.0 % Normal 20.5-60.0 [facility] Comment on above: Performed By: #### C BC #### [facility] [address] [place] [address] Dr. Manda York MANUAL DIFF REQ NO Normal [facility] Comment on above: Performed By: #### C BC #### [facility] [address] [place] [address] Dr. Manda York MCH (RBC) [Entitic mass] 28.9 pg Normal 26.7-34.0 [facility] Comment on above: Performed By: #### C BC #### [facility] [address] [place] [address] Dr. Manda York MCHC (RBC) [Mass/Vol] 32.4 g/dL Normal 29.9-35.2 [facility] Comment on above: Performed By: #### C BC #### [facility] [address] [place] [address] Dr. Manda York MCV (RBC) [Entitic vol] 89.1 fL Normal 81.0-99.0 [facility] Comment on above: Performed By: #### C BC #### [facility] [address] [place] [address] Dr. Manda York MONO # 0.7 103/ul Normal 0.3-0.8 [facility] Comment on above: Performed By: #### C BC #### [facility] [address] [place] [address] Dr. Manda York Monocytes/100 WBC (Bld) 5.8 % Normal 1.7-12.0 [facility] Comment on above: Performed By: #### C BC #### [facility] [address] [place] [address] Dr. Manda York NEUT # 7.3 103/ul Critically high 1.4-6.5 [facility] Comment on above: Performed By: #### C BC #### [facility] [address] [place] [address] Dr. Manda York Neutrophils/100 WBC (Bld) 61.1 % Normal 43.0-75.0 [facility] Comment on above: Performed By: #### C BC #### [facility] [address] [place] [address] Dr. Manda York Platelet mean volume (Bld) [Entitic vol] 9.7 fL Normal 9.5-13.5 [facility] Comment on above: Performed By: #### C BC #### [facility] [address] [place] [address] Dr. Manda York PLT 297 103/ul Normal 150-450 [facility] Comment on above: Performed By: #### C BC #### [facility] [address] [place] [address] Dr. Manda York RBC 4.40 106/ul Normal 4.20-5.40 [facility] Comment on above: Performed By: #### C BC #### [facility] [address] [place] [address] Dr. Manda York WBC 12.0 103/ul Critically high 4.0-11.0 [facility] Comment on above: Performed By: #### C BC #### [facility] [address] [place] [address] Dr. Manda York FREE THYROXINE INDEX T7on FTI 3.81 Normal 1.30-4.50 [facility] Comment on above: Performed By: #### U AMIC #### [facility] [address] [place] [address] Dr. Manda York T3U 34.0 % Normal 30.0-39.0 [facility] Comment on above: Performed By: #### U AMIC #### [facility] [address] [address] [address] Manda York T4 [Mass/Vol] 11.20 ug/dL Normal 4.80-13.90 [facility] Comment on above: Performed By: #### U AMIC #### [facility] [address] [address] [address] Manda York GLYCOHEMOGLOBIN A1Con 2021 ADA RECOMMENDATION SEE BELOW Normal [facility] Comment on above: Result Comment: ADA RECOMMENDED LIMIT 4.0 - 6.0 ADA THERAPEUTIC TARGET < 7.0 ACTION SUGGESTED > 7.0 Performed By: #### S LUIGI MELO #### [facility] [address] [address] [address] Manda York Glucose [Mass/Vol] 117 mg/dL Normal [facility] Comment on above: Performed By: #### S LEANN MELOC #### [facility] [address] [address] [address] Manda York HbA1c (Bld) [Mass fraction] 5.7 % Normal 4.5-6.2 [facility] Comment on above: Performed By: #### S LEANN MELOC #### [facility] [address] [address] [address] Manda York IRONon 03-09-2022 Iron [Mass/Vol] 61.0 ug/dL Normal 50.0-170.0 [facility] Comment on above: Performed By: #### C BC #### [facility] [address] [address] [address] Manda York LIPID PROFILEon 03-09-2022 CHOL-HDL RATIO NORM SEE BELOW Normal [facility] Comment on above: Result Comment: 3.3 - 4.4 LOW RISK 4.4 - 7.1 AVERAGE RISK 7.1 - 11.0 MODERATE RISK >11.0 HIGH RISK Performed By: #### Oren AMIC #### [facility] [address] [address] [address] Manda York Cholesterol [Mass/Vol] 260 mg/dL Critically high <=200 [facility] Comment on above: Performed By: #### U AMIC #### [facility] [address] [address] [address] Manda York Cholesterol in HDL [Mass/Vol] 38 mg/dL Critically low 40-60 [facility] Comment on above: Performed By: #### U AMIC #### [facility] [address] [address] [address] Manda York Cholesterol in LDL [Mass/Vol] 170.8 mg/dL Normal [facility] Comment on above: Performed By: #### U AMIC #### [facility] [address] [address] [address] Manda York Cholesterol.total/Ch olesterol in HDL [Mass ratio] 6.8 {ratio} Normal [facility] Comment on above: Performed By: #### U AMIC #### [facility] [address] [address] [address] Manda York HDL NORMAL > or = 60 mg/dl - LO W CARDIOVASCULAR RISK <40 mg/dl - HIGH CARDIOVASCULAR RISK Normal [facility] Comment on above: Performed By: #### U AMIC #### [facility] [address] [address] [address] Manda York LDL CALC NORMAL SEE BELOW Normal [facility] Comment on above: Result Comment: <100 mg/dl OPTIMAL 100 - 129 mg/dl NEAR OR ABOVE OPTIMAL 130 - 159 mg/dl BORDERLINE HIGH 160 - 189 mg/dl HIGH >190 mg/dl VERY HIGH Performed By: #### U AMIC #### [facility] [address] [address] [address] Manda York Triglyceride [Mass/Vol] 256 mg/dL Critically high <=150 [facility] Comment on above: Performed By: #### U AMIC #### [facility] [address] [address] [address] Manda York VLDL CALC 51.2 mg/dL Normal [facility] Comment on above: Performed By: #### U AMIC #### [facility] [address] [address] [address] Manda York PROF 14(COMP METB)on 022 Albumin [Mass/Vol] 3.8 g/dL Normal 3.4-5.0 [facility] Comment on above: Performed By: #### U AMIC #### [facility] [address] [address] [address] Manda York Albumin/Globulin [Mass ratio] 1.0 {ratio} Normal [facility] Comment on above: Performed By: #### U AMIC #### [facility] [address] [address] [address] Manda York ALP [Catalytic activity/Vol] 66 U/L Normal 46-116 [facility] Comment on above: Performed By: #### U AMIC #### [facility] [address] [address] [address] Manda York ALT [Catalytic activity/Vol] 27 U/L Normal 14-59 [facility] Comment on above: Performed By: #### U AMIC #### [facility] [address] [address] [address] Manda York Anion gap [Moles/Vol] 11.8 mmol/L Normal [facility] Comment on above: Performed By: #### U AMIC #### [facility] [address] [address] [address] Manda York AST [Catalytic activity/Vol] 9 U/L Critically low 15-37 [facility] Comment on above: Performed By: #### U AMIC #### [facility] [address] [address] [address] Manda York Bilirubin [Mass/Vol] 0.2 mg/dL Normal 0.2-1.0 [facility] Comment on above: Performed By: #### U AMIC #### [facility] [address] [address] [address] Manda York Calcium [Mass/Vol] 9.1 mg/dL Normal 8.5-10.1 [facility] Comment on above: Performed By: #### U AMIC #### [facility] [address] [address] [address] Manda York Chloride [Moles/Vol] 101 mmol/L Normal 98-107 [facility] Comment on above: Performed By: #### U AMIC #### [facility] [address] [address] [address] Manda York CO2 [Moles/Vol] 26.1 mmol/L Normal 21.0-32.0 [facility] Comment on above: Performed By: #### U AMIC #### [facility] [address] [address] [address] Manda York Creatinine [Mass/Vol] 0.80 mg/dL Normal 0.55-1.02 [facility] Comment on above: Performed By: #### U AMIC #### [facility] [address] [place] [address] Dr. Manda York EGFR-AF [place]ORE[place] >60 Normal >=60 [facility] Comment on above: Performed By: #### U AMIC #### [facility] [address] [address] [address] Manda York EGFR-NON AF [place] >60 Normal >=60 [facility] Comment on above: Performed By: #### U AMIC #### [facility] [address] [place] [address] Dr. Manda York Globulin (S) [Mass/Vol] 3.8 g/dL Normal [facility] Comment on above: Performed By: #### U AMIC #### [facility] [address] [place] [address] Dr. Manda York Glucose [Mass/Vol] 93 mg/dL Normal 74-106 [facility] Comment on above: Performed By: #### U AMIC #### [facility] [address] [address] [address] Manda York Potassium [Moles/Vol] 3.9 mmol/L Normal 3.5-5.1 [facility] Comment on above: Performed By: #### U AMIC #### [facility] [address] [address] [address] Manda York Protein [Mass/Vol] 7.6 g/dL Normal 6.4-8.2 [facility] Comment on above: Performed By: #### U AMIC #### [facility] [address] [address] [address] Manda York Sodium [Moles/Vol] 135 mmol/L Critically low 136-145 [facility] Comment on above: Performed By: #### U AMIC #### [facility] [address] [address] [address] Manda York Urea nitrogen [Mass/Vol] 10.0 mg/dL Normal 7.0-18.0 [facility] Comment on above: Performed By: #### U AMIC #### [facility] [address] [address] [address] Manda York Urea nitrogen/Creatinine [Mass ratio] 12.5 mg/mg Normal [facility] Comment on above: Performed By: #### U AMIC #### [facility] [address] [address] [address] Manda York TSHon 03-09-2022 TSH 0.610 uIU/mL Normal 0.358-3.740 [facility] Comment on above: Performed By: #### U AMIC #### [facility] [address] [place] [address] Dr. Manda York B2 MICROGLOBULIN [facility] 022 [id number] [Mass/Vol] 1.8 ug/mL 0.8 - 2.4 mg/L [facility] FERRITIN BLDon 03-05-2022 Ferritin [Mass/Vol] 33.2 ng/mL 14.7 - 2 05.1 ng/mL [facility] FOLATE SERUMon 03-05-2022 Folate [Mass/Vol] 6.6 ng/mL >4.7 ng/mL [facility] Iron and Iron binding capaci ty panelon 03-05-2022 Iron [Mass/Vol] 49 ug/dL 41 - 186 ug/dL [facility] Iron binding capacity [Mass/Vol] 392 ug/dL High 232 - 386 ug/dL [facility] Iron/TIBC [Molar ratio] 12.5 % Low 15.0 - 57.0 % [facility] CBC W Auto Differential pane l (Bld)on 03-04-2022 Basophils (Bld) [#/Vol] 0.07 10*3/uL <0.11 k/uL [facility] Basophils/100 WBC (Bld) 0.6 % [facility] Differential cell count method Nom (Bld) Auto [facility] Eosinophils (Bld) [#/Vol] 0.19 10*3/uL <0.46 k/uL [facility] Eosinophils/100 WBC (Bld) 1.7 % [facility] Erythrocyte distribution width (RBC) [Ratio] 14.7 % 11.5 - 15.0 % [facility] Hematocrit (Bld) [Volume fraction] 40.0 % 36.0 - 46.0 % [facility] Hemoglobin (Bld) [Mass/Vol] 13.0 g/dL 11.5 - 15.5 g/dL [facility] Immature granulocytes (Bld) [#/Vol] 0.07 10*3/uL <0.10 k/uL [facility] Immature granulocytes/100 WBC (Bld) 0.6 % [facility] Lymphocytes (Bld) [#/Vol] 3.31 10*3/uL 1.00 - 4.00 k/uL [facility] Lymphocytes/100 WBC (Bld) 30.2 % [facility] MCH (RBC) [Entitic mass] 28.9 pg 26.0 - 34.0 pg [facility] MCHC (RBC) [Mass/Vol] 32.5 g/dL 30.5 - 36.0 g/dL [facility] MCV (RBC) [Entitic vol] 88.9 fL 80.0 - 100.0 fL [facility] Monocytes (Bld) [#/Vol] 0.70 10*3/uL <0.87 k/uL [facility] Monocytes/100 WBC (Bld) 6.4 % [facility] Neutrophils (Bld) [#/Vol] 6.63 10*3/uL 1.45 - 7.50 k/uL [facility] Neutrophils/100 WBC (Bld) 60.5 % [facility] Nucleated RBC (Bld) [#/Vol] <0.01 k/uL [facility] Nucleated RBC/100 WBC (Bld) [Ratio] 0.0 /100 WBC [facility] Platelet mean volume (Bld) [Entitic vol] 9.6 fL 9.0 - 12.7 fL [facility] Platelets (Bld) [#/Vol] 355 10*3/uL 150 - 400 k/uL [facility] RBC (Bld) [#/Vol] 4.50 10*6/uL 3.90 - 5.2 0 m/uL [facility] WBC (Bld) [#/Vol] 10.97 10*3/uL 3.70 - 11 .00 k/uL [facility] Calcium.ionized [Moles/Vol]o n 03-04-2022 Calcium.ionized (Bld) [Mass/Vol] 1.26 mmol/L 1.08 - 1.30 mmol/L [facility] Calcium.ionized adjusted to pH 7.4 (Bld) [Moles/Vol] 1.25 mmol/L 1.08 - 1.30 mmol/L [facility] Comprehensive metabolic 2000 panelon 03-04-2022 Albumin [Mass/Vol] 4.3 g/dL 3.9 - 4.9 g/dL [facility] ALP [Catalytic activity/Vol] 70 U/L 34 - 123 U/L [facility] ALT [Catalytic activity/Vol] 26 U/L 7 - 38 U/L [facility] Anion gap [Moles/Vol] 7 mmol/L Low 9 - 18 mmol/L [facility] AST [Catalytic activity/Vol] 12 U/L Low 13 - 35 U/L [facility] Bilirubin [Mass/Vol] 0.2 mg/dL 0.2 - 1 .3 mg/dL [facility] Calcium [Mass/Vol] 9.3 mg/dL 8.5 - 10. 2 mg/dL [facility] Chloride [Moles/Vol] 103 mmol/L 97 - 10 5 mmol/L [facility] CO2 [Moles/Vol] 28 mmol/L 22 - 30 mmol/L [facility] Creatinine [Mass/Vol] 0.69 mg/dL 0.58 - 0.96 mg/dL [facility] Estimated Glomerular Filtration Rate 112 mL/min/1.73m >=60 mL/min/1.73m [facility] Glucose [Mass/Vol] 100 mg/dL High 74 - 99 mg/dL [facility] Potassium [Moles/Vol] 3.9 mmol/L 3.7 - 5.1 mmol/L [facility] Protein [Mass/Vol] 7.0 g/dL 6.3 - 8.0 g/dL [facility] Sodium [Moles/Vol] 138 mmol/L 136 - 144 mmol/L [facility] Urea nitrogen [Mass/Vol] 12 mg/dL 7 - 21 mg/dL [facility] LD LACTATE DEHYDROon LDH [Catalytic activity/Vol] 135 U/L 135 - 214 U/L [facility] PHOSPHORUS INORGANICon 03-04 Phosphate [Mass/Vol] 3.2 mg/dL 2.7 - 4 .8 mg/dL [facility] URIC ACID BLOODon 03-04-2022 Urate [Mass/Vol] 5.2 mg/dL 2.5 - 6.6 mg/dL [facility] IMMUNOGLOBULINS IGA/IGM/IGG/ IGE QUANTITAon 02-20-2022 Immunoglobulin A, Qn, Serum 189 mg/dL Normal 87-352 [facility] Comment on above: Result Comment: Perf ormed at: CB Performed By: #### S LORIE THYLC #### [facility] [address] [address] [address] Manda York Immunoglobulin E, Total 10 IU/mL Normal 6-495 [facility] Comment on above: Result Comment: Perf ormed at: BN Performed By: #### Tye MELO THYLC #### [facility] [address] [address] [address] Manda York Immunoglobulin G, Qn, Serum 598 mg/dL Normal 586-1602 [facility] Comment on above: Result Comment: Perf ormed at: CB Performed By: #### S LORIE THYLC #### [facility] [address] [place], [place] [address] Dr. Manda York Immunoglobulin M, Qn, Serum 493 mg/dL Critically high 26-217 [facility] Comment on above: Result Comment: Perf ormed at: CB Performed By: #### S LORIE THYLC #### [facility] [address] [address] [address] Manda York CHRISTIAN by IFAon 02-19-2022 Antinuclear Antibodies, IFA Negative Normal [facility] Comment on above: Result Comment: Nega tive <1:80 Borderline 1:80 Positive >1:80 ICAP nomenclature: AC-0 For more information about Hep-2 cell patterns use ANApatterns.org, the official website for the International Consensus on Antinuclear Antibody (CHRISTIAN) Patterns (ICAP). Performed By: #### S LUIGI MELO #### [facility] [address] [place] [address] Dr. Manda York THYROID ANTIBODIESon 022 Thyroglobulin Antibody <1.0 Normal 0.0-0.9 [facility] Comment on above: Result Comment: Thyr oglobulin Antibody measured by [employer] Method[employer] Performed By: #### F T4 #### [facility] [address] [place] [address] Dr. Manda York Thyroid Peroxidase (TPO) Ab <8 Normal 0-34 [facility] Comment on above: Performed By: #### F T4 #### [facility] [address] [place] [address] Dr. Manda York PROTEIN ELECTROPHERESISon Albumin [Mass/Vol] 3.2 g/dL Normal 2.9-4.4 [facility] Comment on above: Performed By: #### F T4 #### [facility] [address] [place] [address] Dr. Manda York Albumin/Globulin [Mass ratio] 1.0 {ratio} Normal 0.7-1.7 [facility] Comment on above: Performed By: #### F T4 #### [facility] [address] [place] [address] Dr. Manda York Ytwyo-6-[id number] 0.2 g/dL Normal 0.0-0.4 [facility] Comment on above: Performed By: #### F T4 #### [facility] [address] [place] [address] Dr. Manda York Jlhbj-3-Tugwgjtl 0.9 g/dL Normal 0.4-1.0 [facility] Comment on above: Performed By: #### F T4 #### [facility] [address] [place] [address] Dr. Manda York Beta Globulin 1.2 g/dL Normal 0.7-1.3 [facility] Comment on above: Performed By: #### F T4 #### [facility] [address] [place] [address] Dr. Manda York Gamma Globulin 0.9 g/dL Normal 0.4-1.8 [facility] Comment on above: Performed By: #### F T4 #### [facility] [address] [place] [address] Dr. Manda York Globulin (S) [Mass/Vol] 3.2 g/dL Normal 2.2-3.9 [facility] Comment on above: Performed By: #### F T4 #### [facility] [address] [place] [address] Dr. Manda York M-Jose De Jesus Not Observed Normal Not Observed [facility] Comment on above: Performed By: #### F T4 #### [facility] [address] [place] [address] Dr. Manda York PDF . Normal [facility] Comment on above: Performed By: #### F T4 #### [facility] [address] [place] [address] Dr. Manda York Please note: Comment Normal [facility] Comment on above: Result Comment: Prot ein electrophoresis scan will follow via computer, mail, or engineering illustrator delivery. Performed By: #### F T4 #### [facility] [address] [place] [address] Dr. Manda York Protein [Mass/Vol] 6.4 g/dL Normal 6.0-8.5 [facility] Comment on above: Performed By: #### F T4 #### [facility] [address] [place] [address] Dr. Manda York SLE PROFILE Aon 02-16-2022 Anti-DNA (DS) Ab Qn 9 IU/mL Normal 0-9 [facility] Comment on above: Result Comment: Nega tive <5 Equivocal 5 - 9 Positive >9 Performed By: #### S LUIGI MELO #### [facility] [address] [place] [address] Dr. Manda York Antichromatin Antibodies <0.2 Normal 0.0-0.9 [facility] Comment on above: Performed By: #### LUIGI PATRICK #### [facility] [address] [place] [address] Dr. Manda York RA Latex Turbid. <10.0 Normal <14.0 [facility] Comment on above: Performed By: #### LUIGI PATRICK #### [facility] [address] [place] [address] Dr. Manda York [employer]CHITECT Antibodies <0.2 Normal 0.0-0.9 [facility] Comment on above: Performed By: #### LUIGI PATRICK #### [facility] [address] [place] [address] Dr. Manda York Sjogren'tye Anti-SS-A <0.2 Normal 0.0-0.9 [facility] Comment on above: Performed By: #### LUIGI PATRICK #### [facility] [address] [place] [address] Dr. Manda York Sjogryaniv'tye Anti-SS-B <0.2 Normal 0.0-0.9 [facility] Comment on above: Performed By: #### LUIGI PATRICK #### [facility] [address] [place] [address] Dr. Manda York Schneider Antibodies <0.2 Normal 0.0-0.9 [facility] Comment on above: Performed By: #### LUIGI PATRICK #### [facility] [address] [place] [address] Dr. Manda York ANTISTREPTOLYSIN O AB (ASO)o n 02-15-2022 Antistreptolysin O Ab 49.6 IU/mL Normal 0.0-200.0 [facility] Comment on above: Performed By: #### A SOAB #### [facility] [address] [place] [address] Dr. Manda York MICROALBUMIN URINEon 022 Albumin, Urine <3.0 Normal Not Estab. [facility] Comment on above: Result Comment: Ve rified by repeat analysis Performed By: #### C BC #### [facility] [address] [place] [address] Dr. Manda York T4, T3U, FTI LABCORPon 02-15 Free Thyroxine Index 2.6 Normal 1.2-4.9 [facility] Comment on above: Performed By: #### LUIIG PATRICK #### [facility] [address] [place] [address] Dr. Manda York T3 Uptake 26 % Normal 24-39 [facility] Comment on above: Performed By: #### LUIGI PATRICK #### [facility] [address] [place] [address] Dr. Manda York T4 [Mass/Vol] 9.9 ug/dL Normal 4.5-12.0 [facility] Comment on above: Performed By: #### LUIGI PATRICK #### [facility] [address] [place] [address] Dr. Manda York CBC AUTO DIFFon 02-14-2022 BASO # 0.1 103/ul Normal 0.0-0.1 [facility] Comment on above: Performed By: #### Oren AMIC #### [facility] [address] [place] [address] Dr. Manda York Basophils/100 WBC (Bld) 0.6 % Normal 0.2-2.0 [facility] Comment on above: Performed By: #### U AMIC #### [facility] [address] [place] [address] Dr. Manda York EO # 0.3 103/ul Normal 0.0-0.7 [facility] Comment on above: Performed By: #### U AMIC #### [facility] [address] [place] [address] Dr. Manda York Eosinophils/100 WBC (Bld) 3.4 % Normal 0.9-7.0 [facility] Comment on above: Performed By: #### U AMIC #### [facility] [address] [place] [address] Dr. Manda York Erythrocyte distribution width (RBC) [Ratio] 14.6 % Normal 11.0-15.0 [facility] Comment on above: Performed By: #### U AMIC #### [facility] [address] [place] [address] Dr. Manda York Hematocrit (Bld) [Volume fraction] 39.1 % Normal 36.0-48.0 [facility] Comment on above: Performed By: #### U AMIC #### [facility] [address] [place] [address] Dr. Manda York Hemoglobin (Bld) [Mass/Vol] 12.4 g/dL Normal 12.0-16.0 [facility] Comment on above: Performed By: #### U AMIC #### [facility] [address] [place] [address] Dr. Manda York IG # 0.03 10e3/ul Normal 0.00-0.03 [facility] Comment on above: Performed By: #### U AMIC #### [facility] [address] [place] [address] Dr. Manda York IG % 0.3 % Normal 0.0-0.5 [facility] Comment on above: Performed By: #### U AMIC #### [facility] [address] [place] [address] Dr. Manda York LYMPH # 3.6 103/ul Normal 1.2-3.8 [facility] Comment on above: Performed By: #### U AMIC #### [facility] [address] [place] [address] Dr. Manda York Lymphocytes/100 WBC (Bld) 39.9 % Normal 20.5-60.0 [facility] Comment on above: Performed By: #### U AMIC #### [facility] [address] [place] [address] Dr. Manda York MANUAL DIFF REQ NO Normal [facility] Comment on above: Performed By: #### U AMIC #### [facility] [address] [place] [address] Dr. Manda York MCH (RBC) [Entitic mass] 28.4 pg Normal 26.7-34.0 [facility] Comment on above: Performed By: #### U AMIC #### [facility] [address] [address] [address] Manda York MCHC (RBC) [Mass/Vol] 31.7 g/dL Normal 29.9-35.2 [facility] Comment on above: Performed By: #### U AMIC #### [facility] [address] [place] [address] Dr. Manda York MCV (RBC) [Entitic vol] 89.7 fL Normal 81.0-99.0 [facility] Comment on above: Performed By: #### U AMIC #### [facility] [address] [place] [address] Dr. Manda York MONO # 0.7 103/ul Normal 0.3-0.8 [facility] Comment on above: Performed By: #### U AMIC #### [facility] [address] [place] [address] Dr. Manda York Monocytes/100 WBC (Bld) 7.3 % Normal 1.7-12.0 [facility] Comment on above: Performed By: #### U AMIC #### [facility] [address] [place] [address] Dr. Manda York NEUT # 4.4 103/ul Normal 1.4-6.5 [facility] Comment on above: Performed By: #### U AMIC #### [facility] [address] [place] [address] Dr. Manda York Neutrophils/100 WBC (Bld) 48.5 % Normal 43.0-75.0 [facility] Comment on above: Performed By: #### U AMIC #### [facility] [address] [place] [address] Dr. Manda York Platelet mean volume (Bld) [Entitic vol] 10.1 fL Normal 9.5-13.5 [facility] Comment on above: Performed By: #### U AMIC #### [facility] [address] [address] [address] Manda York PLT 310 103/ul Normal 150-450 [facility] Comment on above: Performed By: #### U AMIC #### [facility] [address] [place] [address] Dr. Manda York RBC 4.36 106/ul Normal 4.20-5.40 [facility] Comment on above: Performed By: #### U AMIC #### [facility] [address] [place] [address] Dr. Manda York WBC 9.0 103/ul Normal 4.0-11.0 [facility] Comment on above: Performed By: #### U AMIC #### [facility] [address] [place] [address] Dr. Manda York CRPon 02-14-2022 CRP [Mass/Vol] mg/L Normal <=1.0 [facility] Comment on above: Performed By: #### U AMIC #### [facility] [address] [place] [address] Dr. Manda York CULTURE URINEon 02-14-2022 CULTURE URINE Culture Observations : LIGHT GROWTH OF MIXED GENITAL AMBER. NO POTENTIAL PATHOGENS SEEN. Normal [facility] Comment on above: Performed By: #### C BC #### [facility] [address] [place] [address] Dr. Manda York PROF 14(COMP METB)on 022 Albumin [Mass/Vol] 3.5 g/dL Normal 3.4-5.0 [facility] Comment on above: Performed By: #### U AMIC #### [facility] [address] [place] [address] Dr. Manda York Albumin/Globulin [Mass ratio] 1.0 {ratio} Normal [facility] Comment on above: Performed By: #### U AMIC #### [facility] [address] [place] [address] Dr. Manda York ALP [Catalytic activity/Vol] 71 U/L Normal 46-116 [facility] Comment on above: Performed By: #### U AMIC #### [facility] [address] [address] [address] Manda York ALT [Catalytic activity/Vol] 46 U/L Normal 14-59 [facility] Comment on above: Performed By: #### U AMIC #### [facility] [address] [address] [address] Manda York Anion gap [Moles/Vol] 11.6 mmol/L Normal [facility] Comment on above: Performed By: #### U AMIC #### [facility] [address] [address] [address] Manda York AST [Catalytic activity/Vol] 15 U/L Normal 15-37 [facility] Comment on above: Performed By: #### U AMIC #### [facility] [address] [place] [address] Dr. Manda York Bilirubin [Mass/Vol] 0.2 mg/dL Normal 0.2-1.0 [facility] Comment on above: Performed By: #### U AMIC #### [facility] [address] [place] [address] Dr. Manda York Calcium [Mass/Vol] 8.7 mg/dL Normal 8.5-10.1 [facility] Comment on above: Performed By: #### U AMIC #### [facility] [address] [place] [address] Dr. Manda York Chloride [Moles/Vol] 104 mmol/L Normal 98-107 [facility] Comment on above: Performed By: #### U AMIC #### [facility] [address] [address] [address] Manda York CO2 [Moles/Vol] 25.1 mmol/L Normal 21.0-32.0 [facility] Comment on above: Performed By: #### U AMIC #### [facility] [address] [place] [address] Dr. Manda York Creatinine [Mass/Vol] 0.80 mg/dL Normal 0.55-1.02 [facility] Comment on above: Performed By: #### U AMIC #### [facility] [address] [address] [address] Manda York EGFR-AF [place] >60 Normal >=60 [facility] Comment on above: Performed By: #### U AMIC #### [facility] [address] [address] [address] Manda York EGFR-NON AF [place] >60 Normal >=60 [facility] Comment on above: Performed By: #### U AMIC #### [facility] [address] [address] [address] Manda York Globulin (S) [Mass/Vol] 3.6 g/dL Normal [facility] Comment on above: Performed By: #### U AMIC #### [facility] [address] [place] [address] Dr. Manda York Glucose [Mass/Vol] 92 mg/dL Normal 74-106 [facility] Comment on above: Performed By: #### U AMIC #### [facility] [address] [address] [address] Manda York Potassium [Moles/Vol] 3.7 mmol/L Normal 3.5-5.1 [facility] Comment on above: Performed By: #### U AMIC #### [facility] [address] [place] [address] Dr. Manda York Protein [Mass/Vol] 7.1 g/dL Normal 6.4-8.2 [facility] Comment on above: Performed By: #### U AMIC #### [facility] [address] [address] [address] Manda York Sodium [Moles/Vol] 137 mmol/L Normal 136-145 [facility] Comment on above: Performed By: #### U AMIC #### [facility] [address] [place] [address] Dr. Manda York Urea nitrogen [Mass/Vol] 17.0 mg/dL Normal 7.0-18.0 [facility] Comment on above: Performed By: #### U AMIC #### [facility] [address] [place] [address] Dr. Manda York Urea nitrogen/Creatinine [Mass ratio] 21.2 mg/mg Normal [facility] Comment on above: Performed By: #### U AMIC #### [facility] [address] [place] [address] Dr. Manda York SED RATE WESTERGRENon 2021 SED RATE 40 mm/hr Critically high <=20 [facility] Comment on above: Performed By: #### S EDR #### [facility] [address] [place] [address] Dr. Manda York TSHon 02-14-2022 TSH 1.155 uIU/mL Normal 0.358-3.740 [facility] Comment on above: Performed By: #### U AMIC #### [facility] [address] [place] [address] Dr. Manda York UA RANDOM W/MICROSCOPICon BACTERIA NONE SEEN Normal NONE SEEN [facility] Comment on above: Performed By: #### U AMIC #### [facility] [address] [place] [address] Dr. Manda York Bilirubin Ql (U) Negative Normal NEGATIVE [facility] Comment on above: Performed By: #### U AMIC #### [facility] [address] [place] [address] Dr. Manda York CAST NONE SEEN Normal NONE SEEN [facility] Comment on above: Performed By: #### U AMIC #### [facility] [address] [place] [address] Dr. Manda York Clarity (U) CLEAR Normal CLEAR [facility] Comment on above: Performed By: #### U AMIC #### [facility] [address] [place] [address] Dr. Manda York Color (U) LT. YELLOW Normal YELLOW [facility] Comment on above: Performed By: #### U AMIC #### [facility] [address] [place] [address] Dr. Manda York Crystals LM Nom (Urine sed) NONE SEEN Normal NONE SEEN [facility] Comment on above: Performed By: #### U AMIC #### [facility] [address] [place] [address] Dr. Manda York Epithelial cells LM Ql (Urine sed) RARE Normal NONE SEEN /RARE [facility] Comment on above: Performed By: #### U AMIC #### [facility] [address] [place] [address] Dr. Manda York Glucose Ql (U) Negative Normal NEGATIVE [facility] Comment on above: Performed By: #### U AMIC #### [facility] [address] [address] [address] Manda York Hemoglobin Ql (U) Negative Normal NEGATIVE [facility] Comment on above: Performed By: #### U AMIC #### [facility] [address] [place] [address] Dr. Manda York Ketones Ql (U) Negative Normal NEGATIVE [facility] Comment on above: Performed By: #### U AMIC #### [facility] [address] [place] [address] Dr. Manda York LEUKOCYTES Negative Normal NEGATIVE [facility] Comment on above: Performed By: #### U AMIC #### [facility] [address] [place] [address] Dr. Manda York MUCOUS NONE SEEN Normal NONE SEEN [facility] Comment on above: Performed By: #### U AMIC #### [facility] [address] [place] [address] Dr. Manda York Nitrite Ql (U) Negative Normal NEGATIVE [facility] Comment on above: Performed By: #### U AMIC #### [facility] [address] [place] [address] Dr. Manda York pH (U) 6.0 [pH] Normal 5-9 [facility] Comment on above: Performed By: #### U AMIC #### [facility] [address] [place] [address] Dr. Manda York RBC NONE SEEN Abnormal 0-2 [facility] Comment on above: Performed By: #### U AMIC #### [facility] [address] [place] [address] Dr. Manda York SPEC GRAVITY 1.005 Normal 1.005-<=1.02 5 [facility] Comment on above: Performed By: #### U AMIC #### [facility] [address] [place] [address] Dr. Manda York UA PROTEIN Negative Normal NEGATIVE/ TRACE [facility] Comment on above: Performed By: #### U AMIC #### [facility] [address] [place] [address] Dr. Manda York Urobilinogen Qn (U) 0.2 {Carmella'U}/dL Normal 0.2 - 1. 0 [facility] Comment on above: Performed By: #### U AMIC #### [facility] [address] [place] [address] Dr. Manda York WBC NONE SEEN Normal NONE SEEN [facility] Comment on above: Performed By: #### U AMIC #### [facility] [address] [place] [address] Dr. Manda York URIC ACID SERUMon 02-14-2022 Urate [Mass/Vol] 4.2 mg/dL Normal 2.6-6.0 [facility] Comment on above: Performed By: #### U AMIC #### [facility] [address] [place] [address] Dr. Manda York VITAMIN D 25 OHon 02-14-2022 VIT D 25-OH 22.4 ng/mL Normal [facility] Comment on above: Performed By: #### F T4 #### [facility] [address] [place] [address] Dr. Manda York VIT D RANGES SEE BELOW Normal [facility] Comment on above: Result Comment: <20 ng/mL Vit D deficient 20 - <30 ng/mL Vit D insufficient 30 - 100 ng/mL Vit D sufficient >100 ng/mL Potential Toxicity Performed By: #### F T4 #### [facility] [address] [place] [address] Dr. Manda York METANEPHRINES FRAC. QNT 24 H R URINEon 11-28-2021 Metanephrine, U,24hr Comment Normal 36-209 [facility] Comment on above: Result Comment: No t otal volume submitted. Unable to calculate 24 hour result. Performed By: #### LEANN PATRICKC #### [facility] [address] [place] [address] Dr. Manda York Metanephrine, Ur 57 ug/L Normal Undefined [facility] Comment on above: Performed By: #### LEANN PATRICKC #### [facility] [address] [place] [address] Dr. Manda York Normetanephr.,U,24h Comment Normal 131-612 [facility] Comment on above: Result Comment: No t otal volume submitted. Unable to calculate 24 hour result. Performed By: #### LEANN PATRICKC #### [facility] [address] [place] [address] Dr. Manda York Normetanephrine, Ur 116 ug/L Normal Undefined [facility] Comment on above: Performed By: #### LEANN PATRICKC #### [facility] [address] [place] [address] Dr. Manda York METANEPHRINES PLASMA FREEon 11-27-2021 Metanephrine, Pl 22.1 pg/mL Normal 0.0-88.0 [facility] Comment on above: Performed By: #### LUIGI PATRICK #### [facility] [address] [place] [address] Dr. Manda York Normetanephrine, Pl 50.7 pg/mL Normal 0.0-218.9 [facility] Comment on above: Performed By: #### LEANN PATRICKC #### [facility] [address] [place] [address] Dr. Manda York CMV PLASMA PCRon 11-19-2021 CMV Quant DNA PCR (Plasma) Negative Normal Negative [facility] Comment on above: Result Comment: No C MV DNA detected. The quantitative range of this assay is 200 to 1 million IU/mL. Performed By: #### LEANN PATRICKC #### [facility] [address] [place] [address] Dr. Manda York log10 CMV Qn DNA Pl UPTCAL Normal [facility] Comment on above: Result Comment: Unab le to calculate result since non-numeric result obtained for component test. Performed By: #### S LUIGI MELO #### [facility] [address] [place] [address] Dr. Manda York CMV AB IGMon 11-18-2021 Cytomegalovirus (CMV) Ab, IgM 43.2 AU/mL Critically high 0.0-29.9 [facility] Comment on above: Result Comment: Nega tive <30.0 Equivocal 30.0 - 34.9 Positive >34.9 A positive result is generally indicative of acute infection, reactivation or persistent IgM production. Performed By: #### S LUIGI MELO #### [facility] [address] [place] [address] Dr. Manda York CMV AB, IGGon 11-18-2021 Cytomegalovirus (CMV) Ab, IgG >10.00 Critically high 0.00-0.59 [facility] Comment on above: Result Comment: Nega tive <0.60 Equivocal 0.60 - 0.69 Positive >0.69 Performed By: #### C MVIGG #### [facility] [address] [place] [address] Dr. Manda York CBC AUTO DIFFon 11-17-2021 BASO # 0.1 103/ul Normal 0.0-0.1 [facility] Comment on above: Performed By: #### C BC #### [facility] [address] [place] [address] Dr. Manda York Basophils/100 WBC (Bld) 0.6 % Normal 0.2-2.0 [facility] Comment on above: Performed By: #### C BC #### [facility] [address] [place] [address] Dr. Manda York EO # 0.2 103/ul Normal 0.0-0.7 [facility] Comment on above: Performed By: #### C BC #### [facility] [address] [place] [address] Dr. Manda York Eosinophils/100 WBC (Bld) 2.3 % Normal 0.9-7.0 [facility] Comment on above: Performed By: #### C BC #### [facility] [address] [place] [address] Dr. Manda York Erythrocyte distribution width (RBC) [Ratio] 14.2 % Normal 11.0-15.0 [facility] Comment on above: Performed By: #### C BC #### [facility] [address] [place] [address] Dr. Manda York Hematocrit (Bld) [Volume fraction] 40.2 % Normal 36.0-48.0 [facility] Comment on above: Performed By: #### C BC #### [facility] [address] [place] [address] Dr. Manda York Hemoglobin (Bld) [Mass/Vol] 12.8 g/dL Normal 12.0-16.0 [facility] Comment on above: Performed By: #### C BC #### [facility] [address] [place] [address] Dr. Manda York IG # 0.02 10e3/ul Normal 0.00-0.03 [facility] Comment on above: Performed By: #### C BC #### [facility] [address] [place] [address] Dr. Manda York IG % 0.2 % Normal 0.0-0.5 [facility] Comment on above: Performed By: #### C BC #### [facility] [address] [place] [address] Dr. Manda York LYMPH # 2.5 103/ul Normal 1.2-3.8 [facility] Comment on above: Performed By: #### C BC #### [facility] [address] [place] [address] Dr. Manda York Lymphocytes/100 WBC (Bld) 24.9 % Normal 20.5-60.0 [facility] Comment on above: Performed By: #### C BC #### [facility] [address] [place] [address] Dr. Manda York MANUAL DIFF REQ NO Normal [facility] Comment on above: Performed By: #### C BC #### [facility] [address] [address] [address] Manda Yokr MCH (RBC) [Entitic mass] 27.9 pg Normal 26.7-34.0 [facility] Comment on above: Performed By: #### C BC #### [facility] [address] [place] [address] Dr. Manda oYrk MCHC (RBC) [Mass/Vol] 31.8 g/dL Normal 29.9-35.2 [facility] Comment on above: Performed By: #### C BC #### [facility] [address] [place] [address] Dr. Manda York MCV (RBC) [Entitic vol] 87.6 fL Normal 81.0-99.0 [facility] Comment on above: Performed By: #### C BC #### [facility] [address] [place] [address] Dr. Manda York MONO # 0.6 103/ul Normal 0.3-0.8 [facility] Comment on above: Performed By: #### C BC #### [facility] [address] [place] [address] Dr. Manda York Monocytes/100 WBC (Bld) 6.3 % Normal 1.7-12.0 [facility] Comment on above: Performed By: #### C BC #### [facility] [address] [place] [address] Dr. Manda York NEUT # 6.5 103/ul Normal 1.4-6.5 [facility] Comment on above: Performed By: #### C BC #### [facility] [address] [place] [address] Dr. Manda York Neutrophils/100 WBC (Bld) 65.7 % Normal 43.0-75.0 [facility] Comment on above: Performed By: #### C BC #### [facility] [address] [place] [address] Dr. Manda York Platelet mean volume (Bld) [Entitic vol] 10.1 fL Normal 9.5-13.5 [facility] Comment on above: Performed By: #### C BC #### [facility] [address] [place] [address] Dr. Manda York PLT 304 103/ul Normal 150-450 [facility] Comment on above: Performed By: #### C BC #### [facility] [address] [place] [address] Dr. Manda York RBC 4.59 106/ul Normal 4.20-5.40 [facility] Comment on above: Performed By: #### C BC #### [facility] [address] [place] [address] Dr. Manda York WBC 9.9 103/ul Normal 4.0-11.0 [facility] Comment on above: Performed By: #### C BC #### [facility] [address] [place] [address] Dr. Manda York PROF 14(COMP METB)on 022 Albumin [Mass/Vol] 3.7 g/dL Normal 3.4-5.0 [facility] Comment on above: Performed By: #### C BC #### [facility] [address] [place] [address] Dr. Manda York Albumin/Globulin [Mass ratio] 1.0 {ratio} Normal [facility] Comment on above: Performed By: #### C BC #### [facility] [address] [place] [address] Dr. Manda York ALP [Catalytic activity/Vol] 65 U/L Normal 46-116 [facility] Comment on above: Performed By: #### C BC #### [facility] [address] [place] [address] Dr. Manda York ALT [Catalytic activity/Vol] 35 U/L Normal 14-59 [facility] Comment on above: Performed By: #### C BC #### [facility] [address] [place] [address] Dr. Manda York Anion gap [Moles/Vol] 13.0 mmol/L Normal [facility] Comment on above: Performed By: #### C BC #### [facility] [address] [place] [address] Dr. Manda York AST [Catalytic activity/Vol] 12 U/L Critically low 15-37 [facility] Comment on above: Performed By: #### C BC #### [facility] [address] [place] [address] Dr. Manda York Bilirubin [Mass/Vol] 0.2 mg/dL Normal 0.2-1.0 [facility] Comment on above: Performed By: #### C BC #### [facility] [address] [address] [address] Manda York Calcium [Mass/Vol] 8.7 mg/dL Normal 8.5-10.1 [facility] Comment on above: Performed By: #### C BC #### [facility] [address] [place] [address] Dr. Manda York Chloride [Moles/Vol] 104 mmol/L Normal 98-107 [facility] Comment on above: Performed By: #### C BC #### [facility] [address] [place] [address] Dr. Manda York CO2 [Moles/Vol] 24.9 mmol/L Normal 21.0-32.0 [facility] Comment on above: Performed By: #### C BC #### [facility] [address] [place] [address] Dr. Manda York Creatinine [Mass/Vol] 0.77 mg/dL Normal 0.55-1.02 [facility] Comment on above: Performed By: #### C BC #### [facility] [address] [place] [address] Dr. Manda York EGFR-AF [place]OU[place]ORE[place] >=60 Normal >=60 [facility] Comment on above: Performed By: #### C BC #### [facility] [address] [place] [address] Dr. Manda York EGFR-NON AF [place] >=60 Normal >=60 [facility] Comment on above: Performed By: #### C BC #### [facility] [address] [place] [address] Dr. Manda York Globulin (S) [Mass/Vol] 3.8 g/dL Normal [facility] Comment on above: Performed By: #### C BC #### [facility] [address] [address] [address] Manda York Glucose [Mass/Vol] 110 mg/dL Critically high 74-106 [facility] Comment on above: Performed By: #### C BC #### [facility] [address] [address] [address] Manda York Potassium [Moles/Vol] 3.9 mmol/L Normal 3.5-5.1 [facility] Comment on above: Performed By: #### C BC #### [facility] [address] [address] [address] Manda York Protein [Mass/Vol] 7.5 g/dL Normal 6.4-8.2 [facility] Comment on above: Performed By: #### C BC #### [facility] [address] [address] [address] Manda York Sodium [Moles/Vol] 138 mmol/L Normal 136-145 [facility] Comment on above: Performed By: #### C BC #### [facility] [address] [address] [address] Manda York Urea nitrogen [Mass/Vol] 17.0 mg/dL Normal 7.0-18.0 [facility] Comment on above: Performed By: #### C BC #### [facility] [address] [address] [address] Manda York Urea nitrogen/Creatinine [Mass ratio] 22.1 mg/mg Normal [facility] Comment on above: Performed By: #### C BC #### [facility] [address] [address] [address] [facility] mm/hr Critically high <=20 [facility] Comment on above: Performed By: #### F T4 #### [facility] [address] [address] [address] Manda York CHRISTIAN EIA W/REFLEX 5 BIOMARKER Son 10-06-2021 CHRISTIAN Direct Positive Abnormal Negative [facility] Comment on above: Performed By: #### C BC #### [facility] [address] [address] [address] Manda York Anti-DNA (DS) Ab Qn 10 IU/mL Critically high 0-9 [facility] Comment on above: Result Comment: Nega tive <5 Equivocal 5 - 9 Positive >9 Performed By: #### C BC #### [facility] [address] [address] [address] Manda York NETWORK [employer]ITY [employer]CH[employer] Antibodies <0.2 Normal 0.0-0.9 [facility] Comment on above: Performed By: #### C BC #### [facility] [address] [address] [address] Manda York SEE BELOW: Comment Normal [facility] Comment on above: Result Comment: Auto antibody [...] Sm (anti-Schneider) SLE 15 - 30% --------- NETWORK SECURITY ARCHITECT Mixed Connective Tissue Disease 95% (U1 nRNP, SLE 30 - 50% anti-ribonucleoprotein) Polymyositis and/or Dermatomyositis 20% --------- Scl-70 (antiDNA Scleroderma (diffuse) 20 - 35% topoisomerase) Crest 13% --------- Felicita-1 Polymyositis and/or Dermatomyositis 20 - 40% --------- Centromere B Scleroderma - Crest variant 80% Performed By: #### C BC #### [facility] [address] [place] [address] Dr. Manda Solorzanoogren'tye Anti-SS-A <0.2 Normal 0.0-0.9 [facility] Comment on above: Performed By: #### C BC #### [facility] [address] [place] [address] Dr. Manda York Sjogren's Anti-SS-B <0.2 Normal 0.0-0.9 [facility] Comment on above: Performed By: #### C BC #### [facility] [address] [place] [address] Dr. Manda York Schneider Antibodies <0.2 Normal 0.0-0.9 [facility] Comment on above: Performed By: #### C BC #### [facility] [address] [place] [address] Dr. Manda York CMV PLASMA PCRon 10-06-2021 CMV Quant DNA PCR (Plasma) Negative Normal Negative [facility] Comment on above: Result Comment: No C MV DNA detected. The quantitative range of this assay is 200 to 1 million IU/mL. Performed By: #### C MVPL #### [facility] [address] [place] [address] Dr. Manda York log10 CMV Qn DNA Pl UPTCAL Normal [facility] Comment on above: Result Comment: Unab le to calculate result since non-numeric result obtained for component test. Performed By: #### C MVPL #### [facility] [address] [place] [address] Dr. Manda York CMV AB IGMon 2021 Cytomegalovirus (CMV) Ab, IgM 35.5 AU/mL Critically high 0.0-29.9 [facility] Comment on above: Result Comment: Nega tive <30.0 Equivocal 30.0 - 34.9 Positive >34.9 A positive result is generally indicative of acute infection, reactivation or persistent IgM production. Performed By: #### S LEANN MELOC #### [facility] [address] [place] [address] Dr. Manda York CMV AB, IGGon 2021 Cytomegalovirus (CMV) Ab, IgG 6.30 U/mL Critically high 0.00-0.59 [facility] Comment on above: Result Comment: Nega tive <0.60 Equivocal 0.60 - 0.69 Positive >0.69 Performed By: #### S LEANN MELO #### [facility] [address] [place] [address] Dr. Manda York CBC AUTO DIFFon 10-03-2021 BASO # 0.1 103/ul Normal 0.0-0.1 [facility] Comment on above: Performed By: #### C BC #### [facility] [address] [place] [address] Dr. Manda York Basophils/100 WBC (Bld) 0.7 % Normal 0.2-2.0 [facility] Comment on above: Performed By: #### C BC #### [facility] [address] [place] [address] Dr. Manda York EO # 0.2 103/ul Normal 0.0-0.7 [facility] Comment on above: Performed By: #### C BC #### [facility] [address] [place] [address] Dr. Manda York Eosinophils/100 WBC (Bld) 2.0 % Normal 0.9-7.0 [facility] Comment on above: Performed By: #### C BC #### [facility] [address] [place] [address] Dr. Manda York Erythrocyte distribution width (RBC) [Ratio] 14.4 % Normal 11.0-15.0 [facility] Comment on above: Performed By: #### C BC #### [facility] [address] [place] [address] Dr. Manda York Hematocrit (Bld) [Volume fraction] 37.2 % Normal 36.0-48.0 [facility] Comment on above: Performed By: #### C BC #### [facility] [address] [place] [address] Dr. Manda York Hemoglobin (Bld) [Mass/Vol] 12.3 g/dL Normal 12.0-16.0 [facility] Comment on above: Performed By: #### C BC #### [facility] [address] [place] [address] Dr. Manda York IG # 0.02 10e3/ul Normal 0.00-0.03 [facility] Comment on above: Performed By: #### C BC #### [facility] [address] [place] [address] Dr. Manda York IG % 0.2 % Normal 0.0-0.5 [facility] Comment on above: Performed By: #### C BC #### [facility] [address] [place] [address] Dr. Manda York LYMPH # 2.1 103/ul Normal 1.2-3.8 [facility] Comment on above: Performed By: #### C BC #### [facility] [address] [place] [address] Dr. Manda York Lymphocytes/100 WBC (Bld) 26.4 % Normal 20.5-60.0 [facility] Comment on above: Performed By: #### C BC #### [facility] [address] [place] [address] Dr. Manda York MANUAL DIFF REQ NO Normal [facility] Comment on above: Performed By: #### C BC #### [facility] [address] [place] [address] Dr. Manda York MCH (RBC) [Entitic mass] 29.2 pg Normal 26.7-34.0 [facility] Comment on above: Performed By: #### C BC #### [facility] [address] [place] [address] Dr. Manda York MCHC (RBC) [Mass/Vol] 33.1 g/dL Normal 29.9-35.2 [facility] Comment on above: Performed By: #### C BC #### [facility] [address] [place] [address] Dr. Manda York MCV (RBC) [Entitic vol] 88.4 fL Normal 81.0-99.0 [facility] Comment on above: Performed By: #### C BC #### [facility] [address] [place] [address] Dr. Manda York MONO # 0.5 103/ul Normal 0.3-0.8 [facility] Comment on above: Performed By: #### C BC #### [facility] [address] [place] [address] Dr. Manda York Monocytes/100 WBC (Bld) 6.7 % Normal 1.7-12.0 [facility] Comment on above: Performed By: #### C BC #### [facility] [address] [place] [address] Dr. Manda York NEUT # 5.2 103/ul Normal 1.4-6.5 [facility] Comment on above: Performed By: #### C BC #### [facility] [address] [place] [address] Dr. Manda York Neutrophils/100 WBC (Bld) 64.0 % Normal 43.0-75.0 [facility] Comment on above: Performed By: #### C BC #### [facility] [address] [place] [address] Dr. Manda York Platelet mean volume (Bld) [Entitic vol] 10.5 fL Normal 9.5-13.5 [facility] Comment on above: Performed By: #### C BC #### [facility] [address] [place] [address] Dr. Manda York PLT 265 103/ul Normal 150-450 [facility] Comment on above: Performed By: #### C BC #### [facility] [address] [place] [address] Dr. Manda York RBC 4.21 106/ul Normal 4.20-5.40 [facility] Comment on above: Performed By: #### C BC #### [facility] [address] [place] [address] Dr. Manda York WBC 8.1 103/ul Normal 4.0-11.0 [facility] Comment on above: Performed By: #### C BC #### [facility] [address] [place] [address] Dr. Manda York CRPon 10-03-2021 CRP [Mass/Vol] mg/L Normal <=1.0 [facility] Comment on above: Performed By: #### F T4 #### [facility] [address] [address] [address] Manda York SED RATE [facility] 2021 SED RATE 34 mm/hr Critically high <=20 [facility] Comment on above: Performed By: #### C BC #### [facility] [address] [address] [address] Manda York CHLORIDE (POC)Ordered By: Jae Holley on 10-07-2020 Chloride [Moles/Vol] 106 mmol/L 98 - 10 7 mmol/L [employer] Phone: Catheterization and angiogra phy procedure details panelOrdered By: Jaren Holley on 10-07-2020 Cardiac Diagnostic R eport Demographics Patient TERA Torres Date of Study 10/07/2020 Name Date of 1980 Gender Female Age 40 year(s) Race Room [id number]^GINO Height: 67 inch, 170.18 cm Number Corporate [id number] Weight: 234 pounds, 106.1 kg ID # Patient [id number] BSA: 2.16 m^2 BMI: 36.65 kg/m^2 Acct # MR # [id number] Performing Jaren Holley Physician Referring # Physician [...] Right coronary angiography. Contrast Material: - Isovue 04890 ml Fluoroscopy Time: Diagnostic: 2:12 minutes. Total: [...] assessed as CCS II according to the [place] clinical classification. Hemodynamics Condition: Baseline Room Air Estimated: 246.52Heart Rate: 103 bpm Pressure +-----+ + !Site !Pressure ! +-----+ + !AO !106/68 (86) ! +-----+ + !AO !/71 (87) ! +-----+ + !AO !112/66 (86) ! +-----+ + !LV !126/0 ,1 ! +-----+ + !LV !126/0 ,5 ! +-----+ + Valve Gradients and Areas + +---------+---- -----+---------+ + ---------+ + !Valve !Peak !Mean !Area !Index !Flow !Source ! + +---------+---- -----+---------+ + ---------+ + !Aortic (more content not included)... [employer] Work Phone: Gwyn Norris Incoming C ardio Results From Cpacs/Ge - 10/07/2020 10:37 AM EDT Cardiac Diagnostic Report Demographics Patient TERA Torres Date of Study 10/07/2020 Name Date of 1980 Gender Female Age 40 year(s) Race Room [id number]^LEYDI^JAREN Height: 67 inch, 170.18 cm Number Corporate [id number] Weight: 234 pounds, 106.1 kg ID # Patient [id number] BSA: 2.16 m^2 BMI: 36.65 kg/m^2 Acct # MR # [id number] Performing Jaren Holley Physician Referring # Physician [...] Right coronary angiography. Contrast Material: - Isovue 88064 ml Fluoroscopy Time: Diagnostic: 2:12 minutes. Total: [...] assessed as CCS II according to the [place] clinical classification. Hemodynamics Condition: Baseline Room Air [...] + ---------+ + Shunts Oxygen Values O2 Lwmniukg318.4O2 Oskojqtapog548.52 [facility] Phone: [facility] Phone: [facility] Phone: Creatinine W/GFR Point of Ca reOrdered By: Jaren Holley on 10-07-2020 Creatinine [Mass/Vol] 0.64 mg/dL 0.51 - 1.19 mg/dL [facility] Phone: GFR Non- >60 >60 mL/min [employer] Phone: GFR/1.73 sq M.predicted MDRD (S/P/Bld) [Vol rate/Area] mL/min/{1.73_m2} >60 mL/min [facility] Phone: GFR/1.73 sq M.predicted MDRD (S/P/Bld) [Vol rate/Area] [employer] Phone: Comment on above: Average GFR for 40-4 9 years old: 99 mL/min/1.73sq m Chronic Kidney Disease: <60 mL/min/1.73sq m Kidney failure: <15 mL/min/1.73sq m eGFR calculated using average adult body mass. Additional eGFR calculator available at: http://www.Bluetrain.io/multiple_crcl_2012.htm Hemoglobin and hematocrit, b loodOrdered By: Jaren Holley on 10-07-2020 Hematocrit (Bld) [Volume fraction] 41 % 36 - 46 % [facility] Phone: Hemoglobin (Bld) [Mass/Vol] 14.0 g/dL 12.0 - 16.0 g/dL [facility] Phone: No Panel InformationOrdered By: Jaren Holley on 10-07-2020 [facility] Phone: POCT GlucoseOrdered By: Anu Holley on 10-07-2020 Glucose [Mass/Vol] 98 mg/dL 74 - 100 mg/dL [facility] Phone: POCT urine pregnancyOrdered By: Jaren Holley on 10-07-2020 Beta HCG ( test) Ql (U) Negative NEGATIVE [facility] Phone: Comment on above: Specimens with hCG l evels near the threshold of the test (25 mIU/mL) may give a negative or indeterminate result. In such cases, another test should be performed with a new specimen in 48-72 hours. If early is suspected clinically in this setting, correlation with quantitative serum b-hCG level is suggested. [employer] Phone: POTASSIUM (POC)Ordered By: Al Holley on 10-07-2020 Potassium [Moles/Vol] 3.8 mmol/L 3.5 - 4.5 mmol/L [facility] Phone: Platelet Counton 10-07-2020 Platelets (Bld) [#/Vol] 299 10*3/uL Normal 138-453 [facility] Comment on above: Performed By: #### P LT #### [employer] [address] [place] [address] So[employer] Hides: Rick Serrano MD Platelet countOrdered By: Jae Holley on 10-07-2020 Platelets (Bld) [#/Vol] 299 10*3/uL [facility] Phone: [employer] Phone: SODIUM (POC)Ordered By: Anu Holley on 10-07-2020 Sodium [Moles/Vol] 141 mmol/L 138 - 146 mmol/L [facility] Phone: Coding Summary.on 01-12-2019 Coding Summary. CODING DATE: 019 FINAL [facility] STATUS: Home (Routine DC) PAYOR: Medicaid [...] mass index (BMI) 34.0-34.9, adult Z79.899 Other director long term care (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 However, the narrative phrase printed from the coding software may appear abbreviated, or result in slightly different terminology. Coded By: Luz Judd Date Saved: 01/12/2019 10:25 am [facility] Coding Summary. CODING DATE: 019 [facility] STATUS: Home (Routine DC) PAYOR: Medicaid EA DESCRIPTION 0413 CARDIOGRAM 0457 VENIPUNCTURE 0407 LEVEL [...] mass index (BMI) 34.0-34.9, adult Z79.899 Other correction (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 However, the narrative phrase printed from the coding software may appear abbreviated, or result in slightly different terminology. Revised Coded By: Luz Judd Revised Date Saved: 01/12/2019 10:25 am [facility] XR Chest 2 Viewson 9 XR [...] Valenzuela M.D. Transcribed by: BILL Technologist: ZOILA Kenney [facility] Auto Diffon 01-11-2019 Basophils/100 WBC (Bld) 0.8 % Normal 0.0-2.0 [facility] Comment on above: Order Comment: Order Added by Discern Expert. Performed By: #### 1 [id number], 9745745, 1437195, 9210211, 08874226, 8692739, 9202003, 7881390, 0470567, 95445342, 7899779 #### [facility] [address] [place] [address] Basophils/Leukocytes Auto (Bld) [Pure # fraction] 0.1 E9/L Normal 0.0-0.2 [facility] Comment on above: Order Comment: Order Added by Discern Expert. Performed By: #### 1 3947542, 4636033, 5281691, 1530889, 25586288, 7414485, 5669847, 4701796, 5614154, 34071385, 6828671 #### [facility] [address] [place] [address] Eosinophils/100 WBC (Bld) 1.9 % Normal 0.0-8.0 [facility] Comment on above: Order Comment: Order Added by Discern Expert. Performed By: #### 1 1934594, 6202497, 3923436, 3412658, 78365696, 3505143, 8470616, 2823550, 9848721, 07004156, 7188707 #### [facility] [address] [place] [address] Eosinophils/Leukocyt es Auto (Bld) [Pure # fraction] 0.1 E9/L Normal 0.0-0.5 [facility] Comment on above: Order Comment: Order Added by Discern Expert. Performed By: #### 1 3261799, 9762780, 3418134, 3272115, 89440009, 2998607, 0748600, 7599124, 5253030, 00969356, 9569603 #### [facility] [address] [place] [address] Lymphocytes/100 WBC (Bld) 28.0 % Normal 14.0-50.0 [facility] Comment on above: Order Comment: Order Added by Discern Expert. Performed By: #### 1 0562700, 6301971, 7030793, 9242402, 86882086, 9422448, 5028105, 2226239, 1265560, 07608950, 5524859 #### [facility] [address] [place] [address] Lymphocytes/Leukocyt es Auto (Bld) [Pure # fraction] 2.2 E9/L Normal 1.0-4.0 [facility] Comment on above: Order Comment: Order Added by Discern Expert. Performed By: #### 1 6489282, 2421501, 6106980, 1602710, 21443212, 8059121, 4819759, 3156469, 4166362, 97296945, 5845457 #### [facility] [address] [place] [address] Monocytes/100 WBC (Bld) 7.0 % Normal 4.0-14.0 [facility] Comment on above: Order Comment: Order Added by Discern Expert. Performed By: #### 1 4917559, 0455199, 0370541, 4095084, 85218844, 5677411, 3731846, 2483576, 3007029, 96981813, 0178098 #### [facility] [address] [place] [address] Monocytes/Leukocytes Auto (Bld) [Pure # fraction] 0.6 E9/L Normal 0.2-1.0 [facility] Comment on above: Order Comment: Order Added by Discern Expert. Performed By: #### 1 3204292, 3148563, 8492559, 3909907, 78983124, 1661874, 5956184, 0695555, 2147404, 94498447, 5299727 #### [facility] [address] [place] [address] Neutrophils/100 WBC (Bld) 62.3 % Normal 36.0-75.0 [facility] Comment on above: Order Comment: Order Added by Discern Expert. Performed By: #### 1 6049424, 6281090, 2983181, 2041550, 48425202, 6245250, 7579218, 1365769, 0653722, 02598373, 2291511 #### [facility] [address] [place] [address] Neutrophils/Leukocyt es Auto (Bld) [Pure # fraction] 4.9 E9/L Normal 2.0-7.5 [facility] Comment on above: Order Comment: Order Added by Discern Expert. Performed By: #### 1 3797890, 4869037, 2488190, 5785491, 61112469, 5676889, 1644964, 9622109, 5729017, 55003699, 1784601 #### [facility] [address] [place] [address] BMPon 01-11-2019 Creatinine [Mass/Vol] 0.7 mg/dL Normal 0.5-1.3 [facility] Comment on above: Performed By: #### 1 3157136, 0503276, 8484700, 6594045, 72506279, 9614618, 3072580, 5748087, 6277285, 53062957, 7749492 #### [facility] [address] [place] [address] Urea nitrogen [Mass/Vol] 11 mg/dL Normal 5-21 [facility] Comment on above: Performed By: #### 1 5950012, 2176519, 9660504, 9536557, 01403555, 9838417, 6148015, 5037047, 3881585, 10208901, 7213480 #### [facility] [address] [place] [address] Urea nitrogen/Creatinine [Mass ratio] 16 No Units Normal 10-20 [facility] Comment on above: Performed By: #### 1 2697310, 7204732, 3545085, 6421957, 46757148, 8790490, 6649778, 8892646, 5558406, 07710051, 9853764 #### [facility] [address] [place] [address] Anion gap [Moles/Vol] 14 mmol/L Normal 6-16 [facility] Comment on above: Performed By: #### 1 2010771, 4650711, 3522299, 0605360, 49772865, 1706421, 6506212, 4575338, 4419589, 40219280, 6502465 #### [facility] [address] [place] [address] Calcium [Mass/Vol] 8.9 mg/dL Normal 8.9-11.1 [facility] Comment on above: Performed By: #### 1 3460710, 4301405, 4754910, 5057498, 87817721, 5472544, 6112073, 2831363, 0864334, 69418454, 4213833 #### [facility] [address] [place] [address] Chloride [Moles/Vol] 107 mmol/L Normal 101-111 [facility] Comment on above: Performed By: #### 1 6359124, 6177543, 8958915, 1409333, 43246180, 2828875, 2512592, 6477961, 3846553, 42902944, 3264212 #### [facility] [address] [place] [address] CO2 [Moles/Vol] 22 mmol/L Normal 21-31 [facility] Comment on above: Performed By: #### 1 9423988, 9140046, 8025423, 0314785, 32014449, 7355744, 9814214, 6312150, 3203207, 72940648, 2714230 #### [facility] [address] [place] [address] Glucose [Mass/Vol] 122 mg/dL Normal 55-199 [facility] Comment on above: Result Comment: If t his glucose result represents a fasting glucose, interpretation should refer to the following reference range: 55-99 mg/dL Performed By: #### 1 2817185, 8637520, 2192504, 4416667, 03817406, 4641236, 5947407, 0452458, 4579452, 17295630, 0831939 #### [facility] [address] [place] [address] Potassium [Moles/Vol] 3.8 mmol/L Normal 3.5-5.3 [facility] Comment on above: Performed By: #### 1 3729844, 4658375, 2145625, 2318570, 47127765, 6979748, 0958455, 3197519, 0730162, 45828772, 2100692 #### [facility] [address] [place] [address] Sodium [Moles/Vol] 139 mmol/L Normal 135-145 [facility] Comment on above: Performed By: #### 1 1118437, 2063833, 9082232, 2547306, 31055848, 8790620, 0476667, 3437724, 2074331, 54555065, 7603432 #### [facility] [address] [place] [address] CBC w/ Auto Diffon 9 Erythrocyte distribution width (RBC) [Ratio] 14.0 % Normal 10.9-14.2 [facility] Comment on above: Performed By: #### 1 4844912, 9141667, 2175840, 7185094, 62526306, 6008884, 2779783, 9776924, 1904885, 62790110, 3178719 #### [facility] [address] [place] [address] Hematocrit (Bld) [Volume fraction] 39.9 % Normal 34.0-46.0 [facility] Comment on above: Performed By: #### 1 0662165, 3191162, 2145617, 3934239, 74222611, 3453387, 6891768, 7773666, 1686809, 98480293, 6024831 #### [facility] [address] [place] [address] Hemoglobin (Bld) [Mass/Vol] 13.5 g/dL Normal 12.0-16.0 [facility] Comment on above: Performed By: #### 1 6514606, 4427824, 0983760, 4997067, 29819458, 7581071, 5691019, 8278921, 5569747, 68905378, 4280130 #### [facility] [address] [place] [address] MCH (RBC) [Entitic mass] 29.4 pg Normal 27.0-34.0 [facility] Comment on above: Performed By: #### 1 8054441, 2261736, 7984723, 3177743, 11901228, 8829187, 3741466, 7445472, 1895633, 43277556, 3158690 #### [facility] [address] [place] [address] MCHC (RBC) [Mass/Vol] 33.7 g/dL Normal 33.3-35.7 [facility] Comment on above: Performed By: #### 1 0910209, 3469687, 4311637, 5864825, 83696122, 3592364, 5175334, 1033386, 5823919, 92344295, 7659558 #### [facility] [address] [place] [address] MCV (RBC) [Entitic vol] 87.4 fL Normal 80.0-100.0 [facility] Comment on above: Performed By: #### 1 8802847, 2471827, 7383667, 2912926, 47762030, 1440143, 0271681, 9028190, 3479169, 82535035, 4162449 #### [facility] [address] [place] [address] Platelet mean volume (Bld) [Entitic vol] 8.5 fL Normal 6.4-10.8 [facility] Comment on above: Performed By: #### 1 7912932, 1137796, 6785707, 8657357, 98869760, 5580343, 2865322, 6677844, 3962227, 89835924, 3819126 #### [facility] [address] [place] [address] Platelets (Bld) [#/Vol] 244.0 E9/L Normal 150.0-500.0 [facility] Comment on above: Performed By: #### 1 1166061, 4627371, 2315614, 6930311, 83519454, 3929589, 4223013, 8580363, 1815198, 13142028, 9632124 #### [facility] [address] [place] [address] RBC (Bld) [#/Vol] 4.6 E12/L Normal 4.3-5.9 [facility] Comment on above: Performed By: #### 1 8615960, 1504170, 9470382, 9713360, 38266322, 3948639, 7558447, 2338799, 1924248, 03418793, 0120413 #### [facility] [address] [place] [address] WBC corrected for nucl RBC Auto (Bld) [#/Vol] 7.9 E9/L Normal 4.0-11.0 [facility] Comment on above: Performed By: #### 1 0032916, 9053760, 5545815, 7629032, 48092094, 7220776, 6074650, 1332101, 2975927, 58712235, 2148997 #### [facility] [address] [place] [address] D-Dimeron 01-11-2019 Fibrin D-dimer FEU (PPP) [Mass/Vol] 265 ng/mL Normal 215-500 [facility] Comment on above: Result Comment: This [...] infections Liver cirrhosis Performed By: #### 1 2632257, 3590559, 4949002, 3601147, 52135751, 0491952, 1386055, 6188175, 2773319, 42432294, 0958510 #### [facility] [address] [place] [address] ED Clinical Summaryon 2018 ED Clinical Summary (Inserted Image. Melissa ble to display) [address] [address] ED Clinical Summary Person Information Name: JONES HALEY [facility] Age: 38 Years : 1980 12:00 AM Sex: Female Language: Indonesian PCP: Charles Mitchell DO Marital Status: Single Phone: [phone] Visit Id: Visit Reason: Chest pain; CHEST [...] 01/11/2019 6:42 PM 01/11/2019 6:42 PM ADDRESS: [address] [place] [id number] PHYS DOC NOTES: MEDICAL INFORMATION: Prescriptions Given: PATIENT EDUCATION INFORMATION: Instructions: Smoking Cessation; Chest Pain (Nonspecific) Follow up: With: Address: When: [address] [phone] Business (1) Within 2 to 3 days Comments: Return to ED if symptoms worsen DIAGNOSIS: 1:Chest pain Normal [facility] ED Note-Physicianon 01-12-20 ED Note-Physician Basic Information Time Seen: Orin [...] prescription medications Follow-up With When Contact Information [facility] Within 2 to [address] [place] [address] [facility] (1) Additional Instructions: Return to ED [...] Lymph Auto: 28 % (01/11/19 16:46:00 EDT) [place] Auto: 7 % (01/11/19 16:46:00 EDT) Eos Auto: 1.9 % (01/11/19 16:46:00 EDT) Basophil Auto: 0.8 % (01/11/19 16:46:00 EDT) Neutro Absolute: 4.9 E9/L (01/11/19 16:46:00 EDT) Lymph Absolute: 2.2 E9/L (01/11/19 16:46:00 EDT) [place] Absolute: 0.6 E9/L (01/11/19 16:46:00 EDT) Eos [...] Results EC01/11/19: SINUS RHYTHM RATE 84, NORMAL NV AND QRS, NO ST ELEVATION OR DEPRSSION, NORMAL AXIS, NORMAL QTC NORMAL ECG Signed By: Orin Browne DO 01/11/2019 15:54:18 Normal [facility] Comment on above: Result Comment: Elec [...] and skin patches. Some may be available ljio-ahm-zzhrqyn and others require a prescription. ? Antidepressant [...] Document Reviewed: 08/18/2012 ExitCare? Patient Information ?2014 [employer]. This information is not intended to replace [...] Document Reviewed: 12/13/2008 ExitCare? Patient Information ?2015 [place], [employer]. This information is not intended to replace advice given to you by your health care provider. Make sure you discuss any questions you have with your health care provider. Normal [facility] ED Patient Summaryon 019 ED Patient Summary (Inserted Image. Melissa ble to display) [address] [address] Patient Discharge Instructions Person Information Name: JONES HALEY Age: 38 Years Arrival Date: 01/11/2019 3:44 PM Discharge Diagnosis: 1:Chest pain Primary Care Physician: Charles Mitchell DO Provider Information Primary Provider: Orin Browne DO Advanced Script Girl:None The exam and treatment you received in the Emergency Department were for an urgent problem and are not intended as complete care. It is important that you follow up with a doctor, nurse practitioner, or physician?s bookkeeping assistant for ongoing care. If your symptoms [...] Follow-up Instructions: With: Address: When: Charles Mitchell [address] [place], [place] [phone] Business (1) Within 2 to 3 days [...] opioids can be used to help relieve kzmemwly-zy-htrrau pain and are often prescribed following a [...] be struggling with addiction, tell your health child care director and ask for guidance or call JOSEFAl[employer] National Helpline at 3-536-188-NIBR. v Source: [place] Department of Health and Human Services/Center for Disease Control & Prevention [facility] Medications Given: Medication Dose Route No medications found. Medication Information: Medications to Continue with No Changes Other Medications metformin (metformin 500 mg ER Tab) 250 Milligram By Mouth 2 times a day. Comment: Pharmacy Information: Thank you for choosing [facility] Patient Education Materials: Smoking Cessation Quitting smoking [...] and skin patches. Some may be available tcih-nmq-mzqyqog and others require a prescription. ? Antidepressant [...] Document Reviewed: 08/18/2012 ExitCare? Patient Information ?2014 [employer]. This information is not intended to replace [...] Document Reviewed: 12/13/2008 ExitCare? Patient Information ?2014 [employer]. This information is not intended to replace advice given to you by your health care provider. Make sure you discuss any questions you have with your health care provider. TERA Dorantes NICOLE B , have received the following patient education materials/instructions and have verbalized understanding: Patient Education Materials: Smoking Cessation; Chest Pain (Nonspecific) Follow-up Instructions: With: Address: When: [place] [address] [facility] () Within 2 to 3 days Comments: Return to ED if symptoms worsen Prescriptions: Patient Signature Date Clinician/Nurse Signature Date 01/11/19 18:42:28 Normal [facility] Progress Note-Nurseon 2018 Progress Note-Nurse Pt explained dischar ge instructions and voiced understanding. Pt sts she will follow up with her PCP and denies any furthe questions at this time. Normal [facility] Troponin 0 Hr.on 01-11-2019 Troponin I.cardiac [Mass/Vol] ng/mL Normal <=0.03 [facility] Comment on above: Result Comment: New Troponin Assay 10/05/13 [place] Cutoff value > or = 0.03 ng/mL in conjunction with clinical conditions of myocardial infarction. (www.escardio.org/guidelines) Performed By: #### 1 4721820, 8879379, 0759648, 5749613, 93387190, 3888284, 4125725, 1177177, 7698377, 81341410, 1210663 #### [facility] [address] [place] [address] eGFRon 01-11-2019 GFR/1.73 sq M predicted among blacks MDRD (S/P/Bld) [Vol rate/Area] mL/min/{1.73_m2} Normal >=59 [facility] Comment on above: Order Comment: Order added by Discern Expert. Result Comment: eGFR is race adjusted. AA=. Performed By: #### 1 7683921, 1448079, 6910437, 6870613, 50022906, 9661003, 3710401, 5006929, 3085605, 46004299, 9817325 #### [facility] [address] [place] [address] GFR/1.73 sq M predicted among non-blacks MDRD (S/P/Bld) [Vol rate/Area] mL/min/{1.73_m2} Normal >=59 [facility] Comment on above: Order Comment: Order added by Discern Expert. Result Comment: Promotions Officer anthony kidney disease could be indicated at eGFR's of less than 60 mL/min/1.73m2. Kidney failure is indicated at less than 15 mL/min/1.73m2. Performed By: #### 1 6300397, 7467172, 1056691, 5233893, 86548294, 5363518, 5328988, 1328876, 4203712, 37189867, 9938451 #### [facility] [address] [place] [address] SPINE, LUMBOSACRAL CMPLT(TOOTIE DING)on 12-05-2018 SPINE, LUMBOSACRAL CMPLT(BENDING) Patient Name: JONES HALEY STUDY: SPINE, LUMBOSACRAL; CMPLT(BENDING); 12/05/2018 1:47 pm INDICATION: LUMBAR XR. COMPARISON: None. ACCESSION NUMBER(S): [id number] ORDERING CLINICIAN: JUAN LUIS RICHARDSON FINDINGS: No lumbar spine fracture. Scattered small endplate osteophytes. Vertebral body and disc space heights are are maintained. 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 No spondylolisthesis. No instability on flexion or extension. IMPRESSION: Degenerative changes of the lumbar spine without instability. Electronically signed by: EARNESTINE MANUEL MD [facility] XR chest 2V*on 09-17-2018 XR chest 2V* [facility] [place] [address] [place] [address] XRay Report Signed Patient: Jones Haley MR#: [id number] : 1980 Acct:[id number] Age/Sex: 37 / F ADM Date: 09/17/18 Loc: XDUCLY Room: Type: [facility] Attending Dr: Bettina COREAS Ordering [...] Simin Nelson M.D.09/17/2018 2:04 PM Dictation Location: [facility] Transcribed By: [facility] 09/17/18 1404 Dictated By: Simin Nelson MD 09/17/18 1403 Signed By: 09/17/18 1404 [facility] Coding Summary.on 09-15-2018 Coding Summary. CODING DATE: 019 FINAL [facility] DSC STATUS: Home (Routine DC) PAYOR: Medicaid EA DESCRIPTION 0457 VENIPUNCTURE 0413 CARDIOGRAM 0406 LEVEL [...] F17.210 Nicotine dependence, cigarettes, uncomplicated Z79.899 Other correction (current) drug therapy PYMT PROC EA STAT DESCRIPTION DOCTOR NAME DATE NOTE: The code number assigned matches the documented diagnosis and / or procedure in the patient's chart. However, the narrative phrase printed from the coding software may appear abbreviated, or result in slightly different terminology. Coded By: Luz Judd Date Saved: 09/15/2018 07:15 am Normal [facility] Auto Diffon 09-14-2018 Basophils/100 WBC (Bld) 0.6 % Normal 0.0-2.0 [facility] Comment on above: Order Comment: Order Added by Discern Expert. Performed By: #### 1 2853506, 0273993, 1164829, 6809098, 41216996, 4424401, 9303428, 0323963, 2821749, 79998109, 7709201 #### [facility] [address] [place] [address] Basophils/Leukocytes Auto (Bld) [Pure # fraction] 0.1 E9/L Normal 0.0-0.2 [facility] Comment on above: Order Comment: Order Added by Discern Expert. Performed By: #### 1 4731490, 5569452, 4770056, 5811406, 06518860, 3363052, 4436107, 0725274, 0598263, 75036642, 5198196 #### [facility] [address] [place] [address] Eosinophils/100 WBC (Bld) 2.2 % Normal 0.0-8.0 [facility] Comment on above: Order Comment: Order Added by Discern Expert. Performed By: #### 1 4629770, 5235537, 0741450, 1305628, 34729550, 6583680, 8189764, 7393890, 4301257, 43820220, 2705066 #### [facility] [address] [place] [address] Eosinophils/Leukocyt es Auto (Bld) [Pure # fraction] 0.2 E9/L Normal 0.0-0.5 [facility] Comment on above: Order Comment: Order Added by Discern Expert. Performed By: #### 1 2437174, 0710551, 2503063, 6925582, 80822897, 2934124, 5933107, 7853443, 5317011, 64098590, 3736944 #### [facility] [address] [place] [address] Lymphocytes/100 WBC (Bld) 30.6 % Normal 14.0-50.0 [facility] Comment on above: Order Comment: Order Added by Discern Expert. Performed By: #### 1 3411426, 6145248, 1888704, 1031782, 89657997, 0009064, 2503835, 6530260, 2430482, 35487964, 3855590 #### [facility] [address] [place] [address] Lymphocytes/Leukocyt es Auto (Bld) [Pure # fraction] 3.0 E9/L Normal 1.0-4.0 [facility] Comment on above: Order Comment: Order Added by Discern Expert. Performed By: #### 1 0138038, 9082860, 8059336, 1750604, 21829275, 1293796, 9437984, 7548803, 9059382, 93505917, 9922300 #### [facility] [address] [place] [address] Monocytes/100 WBC (Bld) 7.2 % Normal 4.0-14.0 [facility] Comment on above: Order Comment: Order Added by Discern Expert. Performed By: #### 1 2674377, 4966302, 6512786, 8101912, 97666140, 5553389, 3821372, 8959645, 5835081, 39438286, 3069166 #### [facility] [address] [place] [address] Monocytes/Leukocytes Auto (Bld) [Pure # fraction] 0.7 E9/L Normal 0.2-1.0 [facility] Comment on above: Order Comment: Order Added by Discern Expert. Performed By: #### 1 3205991, 1121115, 4023166, 1403987, 76516199, 6486928, 7320925, 4651645, 9740230, 08395680, 6096532 #### [facility] [address] [place] [address] Neutrophils/100 WBC (Bld) 59.4 % Normal 36.0-75.0 [facility] Comment on above: Order Comment: Order Added by Discern Expert. Performed By: #### 1 2107865, 5397325, 1022866, 1645121, 15820147, 5509714, 7864061, 1988363, 1037761, 83871804, 4252868 #### [facility] [address] [place] [address] Neutrophils/Leukocyt es Auto (Bld) [Pure # fraction] 5.9 E9/L Normal 2.0-7.5 [facility] Comment on above: Order Comment: Order Added by Discern Expert. Performed By: #### 1 8319108, 7378959, 0026885, 7039487, 91851958, 4221878, 6380222, 0712966, 2742435, 88296711, 3585214 #### [facility] [address] [place] [address] BMPon 09-14-2018 Creatinine [Mass/Vol] 0.6 mg/dL Normal 0.5-1.3 [facility] Comment on above: Performed By: #### 1 0934210, 5998669, 6103380, 0811247, 26595301, 6844721, 9624221, 8470248, 3841976, 43492036, 7332762 #### [facility] [address] [place] [address] Urea nitrogen [Mass/Vol] 15 mg/dL Normal 5-21 [facility] Comment on above: Performed By: #### 1 8842910, 7324875, 9461764, 6512244, 63668479, 9999556, 2181253, 4248698, 6805636, 21041266, 3313796 #### [facility] [address] [place] [address] Urea nitrogen/Creatinine [Mass ratio] 25 No Units High 10-20 [facility] Comment on above: Performed By: #### 1 5379399, 5365590, 4440895, 0575918, 78705644, 3967716, 2541779, 1721293, 2614646, 65430296, 8705894 #### [facility] [address] [place] [address] Anion gap [Moles/Vol] 13 mmol/L Normal 6-16 [facility] Comment on above: Performed By: #### 1 8360495, 8687644, 9097110, 3823758, 73247479, 0651892, 7874847, 6856245, 5343065, 00095809, 4531418 #### [facility] [address] [place] [address] Calcium [Mass/Vol] 9.5 mg/dL Normal 8.9-11.1 [facility] Comment on above: Performed By: #### 1 9442203, 6917737, 1748681, 8541114, 28269812, 4619279, 8564067, 9847461, 4364194, 90291373, 4820881 #### [facility] [address] [place] [address] Chloride [Moles/Vol] 103 mmol/L Normal 101-111 [facility] Comment on above: Performed By: #### 1 2116100, 2637465, 7628732, 1689292, 68818452, 7205742, 7253023, 9363079, 5165038, 38662555, 7215150 #### [facility] [address] [place] [address] CO2 [Moles/Vol] 24 mmol/L Normal 21-31 [facility] Comment on above: Performed By: #### 1 3863521, 8563607, 7886221, 4853540, 59430694, 2878163, 6911534, 5184673, 6529939, 72449872, 8174746 #### [facility] [address] [place] [address] Glucose [Mass/Vol] 102 mg/dL Normal 55-199 [facility] Comment on above: Result Comment: If t his glucose result represents a fasting glucose, interpretation should refer to the following reference range: 55-99 mg/dL Performed By: #### 1 8678331, 4737923, 1898372, 8525857, 35568986, 8419191, 3441035, 3441054, 9400773, 13468278, 7904111 #### [facility] [address] [place] [address] Potassium [Moles/Vol] 3.6 mmol/L Normal 3.5-5.3 [facility] Comment on above: Performed By: #### 1 1820039, 2238753, 2570077, 3980877, 31175279, 4120964, 0889586, 6485737, 8279237, 51812350, 5239978 #### [facility] [address] [place] [address] Sodium [Moles/Vol] 136 mmol/L Normal 135-145 [facility] Comment on above: Performed By: #### 1 6865801, 3426770, 9400082, 8928607, 94388777, 9614811, 9026071, 7193212, 4204470, 57244289, 8006886 #### [facility] [address] [place] [address] CBC w/ Auto Diffon 9 Erythrocyte distribution width (RBC) [Ratio] 14.2 % Normal 10.9-14.2 [facility] Comment on above: Performed By: #### 1 5706359, 8057626, 2033021, 9792621, 62850659, 1136110, 3460197, 5390673, 9960385, 23495688, 3471106 #### [facility] [address] [place] [address] Hematocrit (Bld) [Volume fraction] 39.4 % Normal 34.0-46.0 [facility] Comment on above: Performed By: #### 1 5406752, 2976633, 6211121, 0216682, 03660172, 0584174, 4412103, 4661695, 7955465, 80175700, 7236258 #### [facility] [address] [place] [address] Hemoglobin (Bld) [Mass/Vol] 13.3 g/dL Normal 12.0-16.0 [facility] Comment on above: Performed By: #### 1 2837983, 3544723, 2290473, 8031866, 27980827, 6585906, 1384020, 5790365, 7094635, 94399233, 8192924 #### [facility] [address] [place] [address] MCH (RBC) [Entitic mass] 29.2 pg Normal 27.0-34.0 [facility] Comment on above: Performed By: #### 1 1403478, 4290915, 9836558, 0088190, 96556502, 7549169, 7159189, 8714782, 9536162, 26972821, 1367232 #### [facility] [address] [place] [address] MCHC (RBC) [Mass/Vol] 33.8 g/dL Normal 33.3-35.7 [facility] Comment on above: Performed By: #### 1 2862289, 4500077, 0526785, 9478369, 68991486, 8658368, 4022460, 2679699, 9535311, 10070345, 7861718 #### [facility] [address] [place] [address] MCV (RBC) [Entitic vol] 86.6 fL Normal 80.0-100.0 [facility] Comment on above: Performed By: #### 1 2176400, 0178595, 7095536, 8139033, 14346744, 1360850, 9032154, 1370887, 8263553, 08013767, 2945412 #### [facility] [address] [place] [address] Platelet mean volume (Bld) [Entitic vol] 8.8 fL Normal 6.4-10.8 [facility] Comment on above: Performed By: #### 1 3163054, 9868971, 7785986, 8684892, 34008104, 4961370, 0749834, 3762945, 0213644, 51934077, 5470451 #### [facility] [address] [place] [address] Platelets (Bld) [#/Vol] 307.0 E9/L Normal 150.0-500.0 [facility] Comment on above: Performed By: #### 1 3448434, 6953538, 1020040, 6246441, 16709697, 8132618, 9537817, 4403135, 3244157, 42384642, 6785394 #### [facility] [address] [place] [address] RBC (Bld) [#/Vol] 4.6 E12/L Normal 4.3-5.9 [facility] Comment on above: Performed By: #### 1 2778378, 7431749, 1299509, 3729640, 39770168, 7861498, 1201224, 4856287, 4089988, 86566460, 2082944 #### [facility] [address] [place] [address] WBC corrected for nucl RBC Auto (Bld) [#/Vol] 9.9 E9/L Normal 4.0-11.0 [facility] Comment on above: Performed By: #### 1 1317448, 6476877, 0793630, 5994312, 31237127, 4198361, 2989126, 7993401, 0205037, 20727975, 2664008 #### [facility] [address] [place] [address] CKon 09-14-2018 CK [Catalytic activity/Vol] 53 Int._Unit/L Normal 14-261 [facility] Comment on above: Performed By: #### 1 6594913, 0249418, 8023384, 1822419, 08359161, 7941342, 4506629, 0361105, 4942198, 04627001, 4241141 #### [facility] [address] [place] [address] ED Clinical Summaryon 2018 ED Clinical Summary (Inserted Image. Melissa ble to display) [address] [address] ED Clinical Summary Person Information Name: JONES HALEY [facility] Age: 37 Years : 1980 12:00 AM Sex: Female Language: Indonesian PCP: Charles Mitchell DO Marital Status: Single Phone: [phone] Visit Id: Visit Reason: Anxiety; Paraesthesia; NUMBNESS [...] 09/14/2018 12:17 AM 09/14/2018 12:17 AM ADDRESS: [address] [place] [address] [place] [id number] PHYS DOC NOTES: MEDICAL INFORMATION: Prescriptions Given: Prescription Display gabapentin (gabapentin 100 mg Cap) 100 mg = 1 cap(s), Oral, Daily, X 7 day(s), # 7 cap(s), Refills(s) 0, Pharmacy: [facility]24 gabapentin (gabapentin 100 mg Cap) 100 mg = 1 cap(s), Oral, Daily, X 7 day(s), # 7 cap(s), Refills(s) 0, Pharmacy: [facility]/pharmacy #6177 magnesium oxide (magnesium oxide 400 mg Tab) 400 mg = 1 tab(s), Oral, Daily, X 7 day(s), # 7 tab(s), Refills(s) 0, Pharmacy: [facility] #24 magnesium oxide (magnesium oxide 400 mg Tab) 400 mg = 1 tab(s), Oral, Daily, X 7 day(s), # 7 tab(s), Refills(s) 0, Pharmacy: [facility]/pharmacy #6177 Home Meds Display metformin (metformin 500 mg ER Tab) 250 mg, Oral, BID, Refills(s) 0 PATIENT EDUCATION INFORMATION: Instructions: Paresthesia, Zhku-rt-Ktak; Restless Legs Syndrome Follow up: With: Address: When: Sayda Kelley [address] [address] Business (1) Within 1 to 2 days Comments: neurologist you may also follow up with him With: Address: When: [address] [address] Business (1) Within 1 to 2 days Comments: Return to ED if symptoms worsen DIAGNOSIS: 1:Restless leg syndrome Normal [facility] ED Note-Nursingon 09-14-2018 ED Note-Nursing Pt up to RR, gait steady. Normal [facility] ED Note-Nursing Aware of need for ur ine specimen, denies urge at present, states will notify when able to produce sample, will monitor. Normal [facility] ED Note-Physicianon 09-15-19 ED Note-Physician Basic Information Time Seen: Génesis [...] day(s), # 7 cap(s), Refills(s) 0, Pharmacy: [facility]/pharmacy #6177 magnesium oxide, 400 mg = 1 tab(s), Oral, Daily, X 7 day(s), # 7 tab(s), Refills(s) 0, [facility] [id number] Sodium Chloride 0.9% intravenous solution 1,000 [...] Sayda Kelley Within 1 to 2 days [place] [address] [place] [address]- Business (1) Additional Instructions: neurologist you may also follow up with him Charles Mitchell Within 1 to 2 days [address] [place] [address]- Business (1) Additional Instructions: Return to ED if symptoms worsen Patient Education Paresthesia, Eacc-ov-Wraj Restless Legs Syndrome Problem List/Past Medical History [...] Lymph Auto: 30.6 % (09/13/18 23:03:00 EDT) [place] Auto: 7.2 % (09/13/18 23:03:00 EDT) Eos Auto: 2.2 % (09/13/18 23:03:00 EDT) Basophil Auto: 0.6 % (09/13/18 23:03:00 EDT) Neutro Absolute: 5.9 E9/L (09/13/18 23:03:00 EDT) Lymph Absolute: 3 E9/L (09/13/18 23:03:00 EDT) [place] Absolute: 0.7 E9/L (09/13/18 23:03:00 EDT) Eos [...] Diagnostic Results No qualifying data available. Normal [facility] Comment on above: Result Comment: Elec tronically Signed By: Génesis Lozoya DO\.br\Date and Time Signed: 09/14/18 01:59 EDT ED [...] 08/01/2012 Document Reviewed: 01/29/2012 ExitCare? Patient Information ?2014 [place], [facility]. This information is not intended to [...] ? Drawing. ? Crawling. ? Worming. ? [place]. ? Tingling. ? Pins and needles. ? [...] Document Reviewed: 08/06/2011 ExitCare? Patient Information ?2015 [employer] [facility]. This information is not intended to replace advice given to you by your health care provider. Make sure you discuss any questions you have with your health care provider. Normal [facility] ED Patient Summaryon 019 ED Patient Summary (Inserted Image. Melissa ble to display) [place] [id number] Patient Discharge Instructions Person Information Name: JONES HALEY Age: 37 Years Arrival Date: 09/13/2018 10:16 PM Discharge Diagnosis: 1:Restless leg syndrome Primary Care Physician: Charles Mitchell DO Provider Information Primary Provider: Génesis Lozoya DO Advanced Script Girl:None The exam and treatment you received in the Emergency Department were for an urgent problem and are not intended as complete care. It is important that you follow up with a doctor, nurse practitioner, or physician?s bookkeeping assistant for ongoing care. If your symptoms become worse or you do not improve as expected and you are unable to reach your usual health care provider, you should return to the Emergency Department. We are available 24 hours a day. JONES HALEY has been given the following list of patient education materials, prescriptions and follow-up instructions: Follow-up Instructions: With: Address: When: Sayda Paez[address] [place] [id number] Business (1) Within 1 to 2 days Comments: neurologist you may also follow up with him With: Address: When: Charles Mitchell [address] [place] [address] Business (1) Within 1 to 2 days Comments: Return to ED if symptoms worsen In the event that this physician does not participate in your insurance network, please consult with your insurance company to find a nearby participating provider. Patient Education Materials: Paresthesia, Ipzw-lc-Aqfb; Restless Legs Syndrome A MESSAGE TO ALL PATIENTS REGARDING OPIOIDS PRESCRIPTION OPIOIDS: WHAT YOU NEED TO KNOW Prescription opioids can be used to help relieve ynkzmswm-vt-kniyaz pain and are often prescribed following a [...] be struggling with addiction, tell your health child care director and ask for guidance or call [facility]?S National Helpline at 6-411-233-HELP. v Source: [place] Department of Health and Human Services/Center for Disease Control & Prevention [facility] Medications Given: Medication Dose Route Sodium Chloride 0.9% intravenous solution 1000.00 mL Initial Volume 1000.00 mL/hr IV Piggyback Left Mid Forearm Medication Information: New Medications [id number], [address], [place] [id number], [phone] gabapentin (gabapentin 100 mg Cap) 1 Capsules By Mouth every day for 7 Days. Refills: 0. magnesium oxide (magnesium oxide 400 mg Tab) 1 Tabs By Mouth every day for 7 Days. Refills: 0. [facility], [address], [place] [id number], [phone] gabapentin (gabapentin 100 mg Cap) 1 Capsules [...] Information: Thank you for choosing [facility] Patient Education Materials: Paresthesia Paresthesia is a [...] Document Reviewed: 01/29/2012 ExitCare? Patient Information ?2015 [employer]. This information is not intended to replace [...] ? Drawing. ? Crawling. ? Worming. ? [place]. ? Tingling. ? Pins and needles. ? [...] Document Reviewed: 08/06/2011 ExitCare? Patient Information ?2015 [employer]. This information is not intended to replace advice given to you by your health care provider. Make sure you discuss any questions you have with your health care provider. TERA Dorantes NICOLE B , have received the following patient education materials/instructions and have verbalized understanding: Patient Education Materials: Paresthesia, Mvjb-ai-Ramq; Restless Legs Syndrome Follow-up Instructions: With: Address: When: [facility], [address] [place] [address] [employer] (1) Within 1 to 2 days Comments: neurologist you may also follow up with him With: Address: When: [address] [address] [employer] () Within 1 to 2 days Comments: Return to ED if symptoms worsen Prescriptions: [gabapentin (gabapentin 100 mg Cap)] [gabapentin (gabapentin 100 mg Cap)] [magnesium oxide (magnesium oxide 400 mg Tab)] [magnesium oxide (magnesium oxide 400 mg Tab)] Patient Signature Date Clinician/Nurse Signature Date 09/14/18 00:21:38 Normal [facility] Hep Func Panelon 09-14-2018 Bilirubin.direct [Mass/Vol] UTC Abnormal 0.1-0.9 [facility] Comment on above: Result Comment: Resu lt verified by Discern Rule. Performed result UTC (Unable to Calculate) was sent as an Alpha code due the inability to calculate a valid numeric value. Performed By: #### 1 [id number], 3405513, 6632815, 4531821, 12446417, 9397977, 8229979, 9153212, 2984937, 59797941, 0236973 #### [facility] [address] [place] [address] Albumin [Mass/Vol] 1.1 g/dL Normal 1.1-2.2 [facility] Comment on above: Performed By: #### 1 3319653, 5296533, 7231191, 4096217, 80922164, 7450782, 2502665, 0403912, 0914359, 65499662, 8523409 #### [facility] [address] [place] [address] Albumin [Mass/Vol] 4.1 g/dL Normal 3.3-5.0 [facility] Comment on above: Performed By: #### 1 5382713, 7579317, 5414017, 3842950, 01282217, 5696066, 8242381, 2771495, 4016226, 86276641, 9313741 #### [facility] [address] [place] [address] ALP [Catalytic activity/Vol] 69 Int._Unit/L Normal 21-98 [facility] Comment on above: Performed By: #### 1 1799242, 8200985, 6791318, 0960096, 08055358, 9936794, 2056796, 7151958, 1769257, 08065284, 1831025 #### [facility] [address] [place] [address] ALT No additional P-5'-P [Catalytic activity/Vol] 27 Int._Unit/L Normal 6-46 [facility] Comment on above: Performed By: #### 1 8494851, 0168009, 9839829, 0382330, 63293029, 2685778, 7935509, 9133381, 2131415, 54800804, 4222676 #### [facility] [address] [place] [address] AST [Catalytic activity/Vol] 16 Int._Unit/L Normal 5-43 [facility] Comment on above: Performed By: #### 1 4866269, 6145720, 6984188, 3405150, 82008399, 9814744, 7838113, 8909999, 4180929, 32153761, 8018383 #### [facility] [address] [place], [place] [address] Bilirubin [Mass/Vol] 0.5 mg/dL Normal 0.0-1.1 [facility] Comment on above: Performed By: #### 1 0543565, 5298947, 1945450, 5379228, 48038149, 6185392, 3078966, 6500025, 5164936, 94262457, 9877874 #### [facility] [address] [place] [address] Bilirubin.direct [Mass/Vol] mg/dL Normal 0.1-0.4 [facility] Comment on above: Performed By: #### 1 4480828, 3877344, 8438312, 6590692, 75968968, 3463709, 3311947, 3952557, 9959662, 46444190, 3025473 #### [facility] [address] [place] [address] Globulin (S) [Mass/Vol] 3.7 g/dL Normal 1.4-4.0 [facility] Comment on above: Performed By: #### 1 2395893, 6982119, 0667215, 7947903, 24084445, 5882164, 4433087, 5057806, 9107708, 37579486, 5181181 #### [facility] [address] [place] [address] Protein [Mass/Vol] 7.8 g/dL Normal 6.0-7.8 [facility] Comment on above: Performed By: #### 1 6004005, 7260531, 2796248, 0702206, 28496181, 8155126, 7118163, 3676995, 7152485, 20602061, 1211088 #### [facility] [address] [place] [address] Magnesiumon 09-14-2018 Magnesium [Mass/Vol] 1.9 mg/dL Normal 1.3-2.4 [facility] Comment on above: Performed By: #### 1 9556344, 0457913, 2205068, 1827990, 89790138, 3783951, 8935009, 9965774, 1611819, 74338603, 3655773 #### [facility] [address] [place] [address] Myoglobinon 09-14-2018 Myoglobin [Mass/Vol] 9 ng/mL Normal <=69 [facility] Comment on above: Performed By: #### 1 2612382, 2683351, 6388544, 1117127, 38693330, 1230187, 9844979, 5520213, 6724895, 30862892, 7276880 #### [facility] [address] [place] [address] PT & PTTon 09-14-2018 aPTT Coag (PPP) [Time] 34.5 second(s) Normal 25.1-36.5 [facility] Comment on above: Result Comment: Hepa rin therapeutic range (represented by Anti-Factor Xa activity of 0.2 - 0.4 U/mL) corresponds to PTT of 56.6 - 109.0 sec. Performed By: #### 1 2209017, 4500518, 4505839, 9639416, 33078036, 7840193, 0347811, 6855340, 7586915, 89750930, 8972383 #### [facility] [address] [place] [address] INR Coag (PPP) [Relative time] 1.0 {INR} [facility] Comment on above: Result Comment: INR results are specifically intended to assess patients stabilized on long-term Anticoagulation therapy suggested INR?s ?Less Intensive Anticoagulation? 2.0 ? 3.0 Conventional Range 3.0 ? 4.5 Performed By: #### 1 3108573, 2196602, 6026751, 1935815, 48908787, 8473231, 0021056, 2625557, 3981623, 58973582, 0710251 #### [facility] [address] [place] [address] PT Coag (PPP) [Time] 11.2 second(s) Normal 10.2-12.9 [facility] Comment on above: Performed By: #### 1 4475022, 5608176, 0298405, 4431908, 58186272, 4983499, 0996137, 4469958, 8521355, 37508815, 0185403 #### [facility] [address] [place] [address] Phosphoruson 09-14-2018 Phosphate [Mass/Vol] 3.8 mg/dL Normal 1.9-4.6 [facility] Comment on above: Performed By: #### 1 3281295, 3848248, 0928647, 7676267, 01560123, 3663757, 2743844, 6046291, 5854022, 60817709, 8892148 #### [facility] [address] [place] [address] Troponin 0 Hr.on 09-14-2018 Troponin I.cardiac [Mass/Vol] ng/mL Normal <=0.03 [facility] Comment on above: Result Comment: New Troponin Assay 10/05/13 [place] Cutoff value > or = 0.03 ng/mL in conjunction with clinical conditions of myocardial infarction. ([email or web address]/guidelines) Performed By: #### 1 1140004, 6029883, 7891630, 4284107, 64668119, 4371819, 3275578, 8178435, 7909983, 73852284, 9475719 #### [facility] [address] [place] [address] UA With Cult Reflexon 2018 Bacteria LM Ql (Urine sed) TRACE Normal Trace [facility] Comment on above: Performed By: #### 1 4232844, 1150181, 5659253, 2651348, 24411868, 1194333, 6380312, 6081307, 6419430, 78217027, 2400976 #### [facility] [address] [place] [address] Bilirubin Ql (U) Negative Normal Negative [facility] Comment on above: Performed By: #### 1 9252341, 8114045, 4620149, 8856897, 54555759, 1806926, 7226366, 2645109, 5133079, 02607497, 5762352 #### [facility] [address] [place] [address] Clarity (U) CLEAR Normal Clear [facility] Comment on above: Performed By: #### 1 5380601, 8450648, 5768507, 6808599, 40546755, 0086389, 0996251, 3067361, 4093471, 77456393, 4134575 #### [facility] [address] [place] [address] Color (U) YELLOW Normal Yellow [facility] Comment on above: Performed By: #### 1 1708534, 9990771, 3280946, 7454131, 79034688, 7118669, 6747538, 8110631, 6527798, 76892158, 3707401 #### [facility] [address] [place] [address] Epithelial cells.squamous LM.HPF (Urine sed) [#/Area] 0-2 Normal 0-2 [facility] Comment on above: Performed By: #### 1 9106925, 0124125, 1666854, 3750713, 72235302, 9692524, 0417207, 3149877, 3136024, 57337995, 5642426 #### [facility] [address] [place] [address] Glucose Test strip (U) [Mass/Vol] Negative Normal Negative [facility] Comment on above: Performed By: #### 1 3688528, 6826820, 8921646, 3912683, 58967864, 6333249, 1177023, 0126307, 2303949, 45541659, 4560768 #### [facility] [address] [place] [address] Hemoglobin Ql (U) Negative Normal Negative [facility] Comment on above: Performed By: #### 1 4320791, 1475834, 2051311, 6218435, 93399432, 3559419, 8316321, 9898753, 0225611, 18508069, 1248213 #### [facility] [address] [place] [address] Ketones (U) [Mass/Vol] Negative Normal Negative [facility] Comment on above: Performed By: #### 1 7839271, 3076199, 3221866, 9676011, 48503260, 5955914, 0601425, 0382924, 0316763, 55235273, 2407570 #### [facility] [address] [place] [address] [place].plasma/Lithi um.RBC (Bld) [Mass ratio] 0-3 Normal 0-3 [facility] Comment on above: Performed By: #### 1 4980827, 5130123, 2537241, 5073916, 13888089, 9543489, 5081121, 0885106, 7230350, 82091454, 4149711 #### [facility] [address] [place] [address] Mucus Ql (Urine sed) TRACE Normal [facility] Comment on above: Performed By: #### 1 7544162, 9441496, 2244921, 3632796, 40445588, 9575046, 8615577, 7276444, 5902616, 52408464, 1401561 #### [facility] [address] [place] [address] Nitrite Ql (U) Negative Normal Negative [facility] Comment on above: Performed By: #### 1 2206300, 7208570, 1005392, 8030265, 21811262, 9304806, 4040220, 1354645, 2728899, 80008594, 7562634 #### [facility] [address] [place] [address] pH (U) 6.0 [pH] 5.0-9.0 [facility] Comment on above: Performed By: #### 1 0789415, 3865882, 3213947, 2480641, 81483172, 8284049, 8278140, 4127727, 3810926, 10923122, 3414010 #### [facility] [address] [place] [address] Protein (U) [Mass/Vol] Negative Normal Negative [facility] Comment on above: Performed By: #### 1 9523233, 1328905, 0727605, 1524287, 03717696, 4342049, 1206052, 7441981, 5287871, 69633372, 6387999 #### [facility] [address] [place] [address] Specific gravity (U) [Rel density] 1.010 1.005-1.030 [facility] Comment on above: Performed By: #### 1 3903950, 0616081, 5868634, 1109392, 77707282, 2116695, 7080849, 1404424, 8593538, 87073037, 1485335 #### [facility] [address] [place] [address] UA Spec Desc Clean Catch Normal [facility] Comment on above: Performed By: #### 1 5359941, 7758929, 6827217, 5563799, 75819622, 4043175, 5550381, 1568759, 7102135, 62322627, 6772664 #### [facility] [address] [place] [address] Urobilinogen Qn (U) 0.2 {Carmella'U}/dL Normal 0.0-1.0 [facility] Comment on above: Performed By: #### 1 5516972, 4556271, 8469003, 5771948, 69636596, 7744630, 2496013, 7586143, 6745518, 42776518, 1134936 #### [facility] [address] [place] [address] WBC Auto Ql (U) Negative Normal Negative [facility] Comment on above: Performed By: #### 1 5038424, 2086328, 7476808, 7082351, 57751717, 8627710, 6861385, 1927962, 8615241, 60690166, 1536675 #### [facility] [address] [place] [address] WBC LM.HPF (Urine sed) [#/Area] 0-5 Normal 0-5 [facility] Comment on above: Performed By: #### 1 4405087, 4559651, 4476067, 6198941, 93969678, 7237565, 1319728, 6541977, 6598005, 81248083, 8619241 #### [facility] [address] [place] [address] XR Chest Single Viewon 09-14 XR Chest [...] Signed by: Sanjay Alcocer M.D. Transcribed by: gls Technologist: AP Normal [facility] XR FOOT LEFT (MIN 3 VIEWS)on 09-14-2018 XR FOOT LEFT (MIN 3 VIEWS) Radiology exam is complete. No Radiologist dictation. Please follow up with ordering provider. Final result Normal [facility] XR FOOT RIGHT (MIN 3 VIEWS)o n 09-14-2018 XR FOOT RIGHT (MIN 3 VIEWS) Radiology exam is complete. No Radiologist dictation. Please follow up with ordering provider. Final result Normal [facility] eGFRon 09-14-2018 GFR/1.73 sq M predicted among blacks MDRD (S/P/Bld) [Vol rate/Area] mL/min/{1.73_m2} Normal >=59 [facility] Comment on above: Order Comment: Order added by Discern Expert. Result Comment: eGFR is race adjusted. AA=. Performed By: #### 1 6080319, 1516056, 8784260, 2345503, 57695817, 3424342, 5144950, 2546347, 0152134, 22100030, 9571128 #### [facility] [address] [place] [address] GFR/1.73 sq M predicted among non-blacks MDRD (S/P/Bld) [Vol rate/Area] mL/min/{1.73_m2} Normal >=59 [facility] Comment on above: Order Comment: Order added by Discern Expert. Result Comment: Promotions Officer anthony kidney disease could be indicated at eGFR's of less than 60 mL/min/1.73m2. Kidney failure is indicated at less than 15 mL/min/1.73m2. Performed By: #### 1 3526036, 8518373, 7057643, 4440551, 29496778, 1650285, 2768084, 3574472, 1786371, 90017823, 5244616 #### [facility] [address] [place] [address] Vital Signs Date Time Vital Sign Value Performing Clinician Facility 07-06-2023 14:48-0500 Body mass index (BMI) [Ratio] 41.81 kg/m2 Juan Luis Richardson MD Work Phone: [facility] 07-06-2023 14:48-0500 Body weight 119.3 kg Juan Luis Richardson MD Work Phone: [facility] 06-09-2023 08:45-0500 Body height 170.2 cm Michelle Britton [employer]ARBAGE TRUCK HELPER-DESIGN PRINTING MACHINE SET UP OPERATOR Work Phone: [facility] 06-09-2023 08:45-0500 Body mass index (BMI) [Ratio] 44.48 kg/m2 Michelle Mitali [employer]ARBAGE TRUCK HELPER-DESIGN PRINTING MACHINE SET UP OPERATOR Work Phone: [facility] 06-09-2023 08:45-0500 Body weight 128.82 kg Michelle Britton GARBAGE TRUCK HELPER-DESIGN PRINTING MACHINE SET UP OPERATOR Work Phone: [facility] 06-09-2023 08:45-0500 Diastolic blood pressure 82 mm[Hg] Michelle Britton GARBAGE TRUCK HELPER-DESIGN PRINTING MACHINE SET UP OPERATOR Work Phone: [facility] 06-09-2023 08:45-0500 Heart rate 80 /min Michelle Britton GARBAGE TRUCK HELPER-DESIGN PRINTING MACHINE SET UP OPERATOR Work Phone: [facility] 06-09-2023 08:45-0500 Systolic blood pressure 146 mm[Hg] Michelle Britton GARBAGE TRUCK HELPER-DESIGN PRINTING MACHINE SET UP OPERATOR Work Phone: [facility] 05-26-2023 17:17-0500 Body weight 123.83 kg Crhistie Phan MD Work Phone: [facility] 04-26-2023 14:42-0500 Body weight 125.19 kg Christie Phan MD Work Phone: [facility] 03-19-2023 11:16-0400 Body temperature 97.7 [degF] Ma Sand Work Phone: [facility] 03-19-2023 11:16-0400 Diastolic blood pressure 54 mm[Hg] Ma Sand Work Phone: [facility] 03-19-2023 11:16-0400 Heart rate 75 /min Ma Sand Work Phone: [facility] 03-19-2023 11:16-0400 Respiratory rate 16 /min Ma Sand Work Phone: [facility] 03-19-2023 11:16-0400 SaO2% (BldA) [Mass fraction] 96 % Ma Sand Work Phone: [facility] 03-19-2023 11:16-0400 Systolic blood pressure 111 mm[Hg] Ma Sand Work Phone: [facility] 02-19-2023 10:56-0400 Body height 170.2 cm Jose Najera MD Work Phone: [facility] 02-19-2023 10:56-0400 Body temperature 97.39 [degF] Jose Najera MD Work Phone: [facility] 02-19-2023 10:56-0400 Body weight 120.75 kg Jose Najera MD Work Phone: [facility] 02-19-2023 10:56-0400 Diastolic blood pressure 69 mm[Hg] Jose Najera MD Work Phone: [facility] 02-19-2023 10:56-0400 Heart rate 110 /min Jose Najera MD Work Phone: [facility] 02-19-2023 10:56-0400 Respiratory rate 16 /min Jose Najera MD Work Phone: [facility] 02-19-2023 10:56-0400 SaO2% (BldA) [Mass fraction] 96 % Jose Najera MD Work Phone: [facility] 02-19-2023 10:56-0400 Systolic blood pressure 132 mm[Hg] Jose Najera MD Work Phone: [facility] 01-22-2023 12:09-0400 Diastolic blood pressure 76 mm[Hg] Ma Sand Work Phone: [facility] 01-22-2023 12:09-0400 Systolic blood pressure 107 mm[Hg] Ma Sand Work Phone: [facility] 01-22-2023 12:08-0400 Body temperature 97.59 [degF] Ma Sand Work Phone: [facility] 01-22-2023 12:08-0400 Heart rate 102 /min Ma Sand Work Phone: [facility] 01-22-2023 12:08-0400 Respiratory rate 16 /min Ma Sand Work Phone: [facility] 01-22-2023 12:08-0400 SaO2% (BldA) [Mass fraction] 97 % Ma Sand Work Phone: [facility] 11-19-2022 11:00-0400 Body temperature 97.2 [degF] Ma Sand Work Phone: [facility] 11-19-2022 11:00-0400 Diastolic blood pressure 54 mm[Hg] Ma Sand Work Phone: [facility] 11-19-2022 11:00-0400 Heart rate 98 /min Ma Sand Work Phone: [facility] 11-19-2022 11:00-0400 Respiratory rate 16 /min Ma Sand Work Phone: [facility] 11-19-2022 11:00-0400 SaO2% (BldA) [Mass fraction] 98 % Ma Sand Work Phone: [facility] 11-19-2022 11:00-0400 Systolic blood pressure 126 mm[Hg] Ma Sand Work Phone: [facility] 10-22-2022 11:51-0400 Body height 170.2 cm Ma Sand Work Phone: [facility] 10-22-2022 11:51-0400 Body weight 120.66 kg Ma Sand Work Phone: [facility] 10-22-2022 11:51-0400 Respiratory rate 16 /min Ma Sand Work Phone: [facility] 10-22-2022 10:50-0400 Body height 170.2 cm Jose Najera MD Work Phone: [facility] 10-22-2022 10:50-0400 Body temperature 97 [degF] Jose Najera MD Work Phone: [facility] 10-22-2022 10:50-0400 Body weight 120.75 kg Jose Najera MD Work Phone: [facility] 10-22-2022 10:50-0400 Diastolic blood pressure 55 mm[Hg] Jose Najera MD Work Phone: [facility] 10-22-2022 10:50-0400 Heart rate 78 /min Jose Najera MD Work Phone: [facility] 10-22-2022 10:50-0400 Respiratory rate 16 /min Jose Najera MD Work Phone: [facility] 10-22-2022 10:50-0400 SaO2% (BldA) [Mass fraction] 98 % Jose Najera MD Work Phone: [facility] 10-22-2022 10:50-0400 Systolic blood pressure 132 mm[Hg] Jose Najera MD Work Phone: [facility] 09-24-2022 10:22-0400 Body height 170.2 cm Ma Sand Work Phone: [facility] 09-24-2022 10:22-0400 Body temperature 97 [degF] Ma Sand Work Phone: [facility] 09-24-2022 10:22-0400 Body weight 120.2 kg Ma Sand Work Phone: [facility] 09-24-2022 10:22-0400 Diastolic blood pressure 81 mm[Hg] Ma Sand Work Phone: [facility] 09-24-2022 10:22-0400 Heart rate 77 /min Ma Sand Work Phone: [facility] 09-24-2022 10:22-0400 Respiratory rate 16 /min Ma Sand Work Phone: [facility] 09-24-2022 10:22-0400 SaO2% (BldA) [Mass fraction] 97 % Cele Marshall Work Phone: [facility] 09-24-2022 10:22-0400 Systolic blood pressure 116 mm[Hg] Cele Marshall Work Phone: [facility] 09-07-2022 14:03-0400 Body weight 120.2 kg Christie Phan MD Work Phone: [facility] 08-27-2022 09:45-0400 Body height 170.2 cm Wilmer Driver APRN.DESIGN PRINTING MACHINE SET UP OPERATOR Work Phone: [facility] 08-27-2022 09:45-0400 Body temperature 97.7 [degF] Wilmer Driver APRN.DESIGN PRINTING MACHINE SET UP OPERATOR Work Phone: [facility] 08-27-2022 09:45-0400 Body weight 118.66 kg Wilmer Driver APRN.DESIGN PRINTING MACHINE SET UP OPERATOR Work Phone: [facility] 08-27-2022 09:45-0400 Diastolic blood pressure 55 mm[Hg] Wilmer Driver APRN.DESIGN PRINTING MACHINE SET UP OPERATOR Work Phone: [facility] 08-27-2022 09:45-0400 Heart rate 63 /min Wilmer Driver APRN.DESIGN PRINTING MACHINE SET UP OPERATOR Work Phone: [facility] 08-27-2022 09:45-0400 Respiratory rate 16 /min Wilmer Driver APRN.DESIGN PRINTING MACHINE SET UP OPERATOR Work Phone: [facility] 08-27-2022 09:45-0400 SaO2% (BldA) [Mass fraction] 96 % Wilmer Driver APRN.DESIGN PRINTING MACHINE SET UP OPERATOR Work Phone: [facility] 08-27-2022 09:45-0400 Systolic blood pressure 117 mm[Hg] Wilmer Driver APRN.DESIGN PRINTING MACHINE SET UP OPERATOR Work Phone: [facility] 05-20-2022 13:28-0500 Body height 170.2 cm Jose Najera MD Work Phone: [facility] 05-20-2022 13:28-0500 Body temperature 97.7 [degF] Jose Najera MD Work Phone: [facility] 05-20-2022 13:28-0500 Diastolic blood pressure 70 mm[Hg] Jose Najera MD Work Phone: [facility] 05-20-2022 13:28-0500 Heart rate 93 /min Jose Najera MD Work Phone: [facility] 05-20-2022 13:28-0500 Respiratory rate 16 /min Jose Najera MD Work Phone: [facility] 05-20-2022 13:28-0500 SaO2% (BldA) [Mass fraction] 97 % Jose Najera MD Work Phone: [facility] 05-20-2022 13:28-0500 Systolic blood pressure 127 mm[Hg] Jose Najera MD Work Phone: [facility] 03-18-2022 10:49-0400 Body height 170.2 cm Jose Najera MD Work Phone: [facility] 03-18-2022 10:49-0400 Body temperature 97.81 [degF] Jose Najera MD Work Phone: [facility] 03-18-2022 10:49-0400 Body weight 113.4 kg Jose Najera MD Work Phone: [facility] 03-18-2022 10:49-0400 Diastolic blood pressure 49 mm[Hg] Jose Najera MD Work Phone: [facility] 03-18-2022 10:49-0400 Heart rate 86 /min Jose Najera MD Work Phone: [facility] 03-18-2022 10:49-0400 Respiratory rate 16 /min Jose Najera MD Work Phone: [facility] 03-18-2022 10:49-0400 SaO2% (BldA) [Mass fraction] 98 % Jose Najera MD Work Phone: [facility] 03-18-2022 10:49-0400 Systolic blood pressure 145 mm[Hg] Jose Najera MD Work Phone: [facility] 03-09-2022 11:41-0400 Body height 170.2 cm Christie Phan MD Work Phone: [facility] 03-09-2022 11:41-0400 Body weight 112.49 kg Christie Phan MD Work Phone: [facility] 03-09-2022 11:41-0400 Diastolic blood pressure 100 mm[Hg] hCristie Phan MD Work Phone: [facility] 03-09-2022 11:41-0400 Systolic blood pressure 158 mm[Hg] Christie Phan MD Work Phone: [facility] 03-04-2022 10:39-0400 Body height 170.2 cm Jose Najera MD Work Phone: [facility] 03-04-2022 10:39-0400 Body temperature 97.5 [degF] Jose Najera MD Work Phone: [facility] 03-04-2022 10:39-0400 Body weight 112.76 kg Jose Najera MD Work Phone: [facility] 03-04-2022 10:39-0400 Diastolic blood pressure 48 mm[Hg] Jose Najera MD Work Phone: [facility] 03-04-2022 10:39-0400 Heart rate 79 /min Jose Najera MD Work Phone: [facility] 03-04-2022 10:39-0400 Respiratory rate 16 /min Jose Najera MD Work Phone: [facility] 03-04-2022 10:39-0400 SaO2% (BldA) [Mass fraction] 99 % Jose Najera MD Work Phone: [facility] 03-04-2022 10:39-0400 Systolic blood pressure 132 mm[Hg] Jose Najera MD Work Phone: [facility] 11-26-2021 16:00-0400 Body height 168.91 cm Mirela Kelsey Other [facility] Other 11-26-2021 16:00-0400 Body mass index (BMI) [Ratio] 37.68 kg/m2 Mirela Kelsey Other [facility] Other 11-26-2021 16:00-0400 Body temperature 98.4 [degF] Mirela Kelsey Other [facility] Other 11-26-2021 16:00-0400 Body weight 107.5 kg Mirela Kelsey Other [facility] Other 11-26-2021 16:00-0400 Diastolic blood pressure 61 mm[Hg] Mirela Kelsey Other [facility] Other 11-26-2021 16:00-0400 Systolic blood pressure 115 mm[Hg] Mirela Buffy Other [facility] Other 10-24-2021 08:18-0400 Body weight 108.86 kg Lynne Ni MD Work Phone: [facility] 10-24-2021 08:18-0400 Diastolic blood pressure 42 mm[Hg] Lynne Ni MD Work Phone: [facility] 10-24-2021 08:18-0400 Heart rate 72 /min Lynne Ni MD Work Phone: [facility] 10-24-2021 08:18-0400 Systolic blood pressure 106 mm[Hg] Lynne Ni MD Work Phone: [facility] 10-15-2021 15:45-0400 Body height 168.91 cm Mirela Buffy Other [facility] Other 10-15-2021 15:45-0400 Body mass index (BMI) [Ratio] 38.31 kg/m2 Mirela Kelsey Other [facility] Other 10-15-2021 15:45-0400 Body temperature 98.1 [degF] Mirela Kelsey Other [facility] Other 10-15-2021 15:45-0400 Body weight 109.32 kg Mirela Kelsey Other [facility] Other 10-15-2021 15:45-0400 Diastolic blood pressure 60 mm[Hg] Mirela Kelsey Other [facility] Other 10-15-2021 15:45-0400 Systolic blood pressure 114 mm[Hg] Mirela Kelsey Other [facility] Other 09-11-2021 15:15-0400 Body height 168.91 cm Mirela Kelsey Other [facility] Other 09-11-2021 15:15-0400 Body mass index (BMI) [Ratio] 37.99 kg/m2 Mirela Kelsey Other [facility] Other 09-11-2021 15:15-0400 Body temperature 97.9 [degF] Mirela Buffy Other [facility] Other 09-11-2021 15:15-0400 Body weight 108.41 kg Mirela Buffy Other [facility] Other 09-11-2021 15:15-0400 Diastolic blood pressure 83 mm[Hg] Mirela Kelsey Other [facility] Other 09-11-2021 15:15-0400 Systolic blood pressure 144 mm[Hg] Mirela Kelsey Other [facility] Other 10-07-2020 12:45-0400 Diastolic blood pressure 78 mm[Hg] Stv [facility] Phone: 10-07-2020 12:45-0400 Heart rate 68 /min [facility] Phone: 10-07-2020 12:45-0400 SaO2% (BldA) [Mass fraction] 99 % [facility] Phone: 10-07-2020 12:45-0400 Systolic blood pressure 112 mm[Hg] [facility] Phone: 10-07-2020 10:45-0400 Respiratory rate 22 /min [facility] Phone: 10-07-2020 09:01-0400 Body height 170.2 cm Stv [facility] Phone: 10-07-2020 09:01-0400 Body mass index (BMI) [Ratio] 36.65 kg/m2 [facility] Phone: 10-07-2020 09:01-0400 Body temperature 97.81 [degF] [facility] Phone: 10-07-2020 09:01-0400 Body weight 106.14 kg [facility]v [facility] Phone: Encounters Encounter Date Encounter Type Care Provider Facility Start: 07-06-2023 End: 07-06-2023 Office outpatient visit 25 minutes Juan Luis Richardson MD Work Phone: [facility] 210 Comment on above: Autoimmune disease ( CMS/HCC) (Primary Dx); Autonomic dysfunction; Lumbosacral radiculopathy; Bilateral leg weakness Start: 07-05-2023 Chart abstracting Juan Luis ramirez MD Work Phone: [facility] 210 Start: 06-10-2023 End: 06-10-2023 ambulatory MADELAINE FERRIS Facility:[facility] Start: 06-09-2023 End: 06-09-2023 ambulatory [facility] Ambulatory Start: 06-09-2023 End: 06-09-2023 Office outpatient new 60 minutes [facility] GARBAGE TRUCK HELPER-DESIGN PRINTING MACHINE SET UP OPERATOR Work Phone: [facility] Comment on above: Irregular heart rate (Primary Dx); Essential hypertension; Autonomic dysfunction; Obstructive sleep apnea syndrome; Primary hypertension Start: 06-03-2023 End: 06-03-2023 ambulatory MADELAINE Daniela Cristina Facility:[facility] Start: 06-01-2023 End: 06-01-2023 ambulatory MADELAINE Batista Cristina Facility:[facility] Start: 06-01-2023 End: 06-01-2023 ambulatory SHARRON ROGERS Not Available Start: 05-26-2023 End: 05-26-2023 ambulatory MADELAINE Daniela Cristina Facility:[facility] Start: 05-26-2023 End: 05-26-2023 Office outpatient [...] Not Available Start: 04-16-2023 End: 04-16-2023 ambulatory [facility] Facility:[facility] Start: 04-16-2023 End: 04-16-2023 Nursing evaluation of patient and report Cele Marshall Work Phone: Hematology/Oncology Comment on above: 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); Elevated sed rate Start: 04-09-2023 End: 04-09-2023 ambulatory [facility] Facility:[facility] Start: 03-19-2023 End: 03-19-2023 [facility] Facility:[facility] Start: 03-19-2023 End: 03-19-2023 Nursing evaluation of patient and report Cele Marshall Work Phone: Hematology/Oncology Comment on above: 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); Elevated sed rate Start: 03-16-2023 Chart abstracting [facility] Work Phone: Neurology Comment on above: CMN Start: 03-11-2023 End: 03-11-2023 ambulatory [facility] Facility:[facility] Start: 03-11-2023 End: 03-11-2023 Nursing evaluation of patient and report Nurse Mora [facility] Nickie Work Phone: Rheumatology Comment on above: Systemic lupus eryth ematosus, unspecified SLE type, unspecified organ involvement status (HCC) (Primary Dx) Start: 03-03-2023 End: 03-03-2023 ambulatory [facility] Facility:[facility] Start: 03-01-2023 Telephone encounter Lynne shaw MD Work Phone: Rheumatology Comment on above: Results (Eye Exam) Start: 02-19-2023 End: 02-19-2023 ambulatory [facility] Facility:[facility] Start: 02-19-2023 End: 02-19-2023 Nursing evaluation of patient and report Ma Nurse Dre Joanna Work Phone: Hematology/Oncology Comment on above: Megaloblastic [...] above: Refill Request Start: 02-11-2023 End: 02-11-2023 [facility] Facility:[facility] Start: 02-04-2023 End: 02-04-2023 ambulatory Lynne [...] deficiency; Elevated sed rate; Bilateral wrist pain; senior living 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; Steroid-induced osteoporosis; 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 Start: 02-04-2023 Patient encounter procedure Clinton Schroeder (Pharmacist) [facility] Comment on above: SPP Inflammatory Con ditions - Treatment Referral (Benlysta); Insurance Authorization ([place] submission pending) Start: 02-04-2023 Telephone encounter Lynne shaw MD Work Phone: Rheumatology Comment on above: Appointment; Orders; Medication Authorization Start: 02-04-2023 End: 02-04-2023 [facility] Facility:[facility] Start: 02-04-2023 End: 02-04-2023 Telemedicine consultation with patient Lynne Ni MD Work Phone: [facility] Start: 01-28-2023 Refill Christie Hays Work Phone: Integrated Medicine Comment on above: Refill Request Start: 01-24-2023 Telephone encounter Lynne shaw MD Work Phone: Rheumatology Comment on above: Results Start: 01-22-2023 End: 01-22-2023 ambulatory MADELAINE FERRIS Facility:[facility] Start: 01-22-2023 End: 01-22-2023 Nursing evaluation of patient and report Ma [...] with patient Misty Nelson MD Work Phone: [facility] Start: 12-29-2022 End: 12-29-2022 ambulatory MADELAINE FERRIS Facility:[facility] Start: 12-24-2022 Refill Christie Hays Work Phone: Integrated Medicine Comment on above: Refill Request Start: 12-18-2022 Telephone encounter Lidia Argueta RN Work Phone: Hematology/Oncology Comment on above: Care Coordination (a ppointment) Start: 12-17-2022 End: 12-18-2022 ambulatory MADELAINE FERRIS Facility:[facility] Start: 12-17-2022 End: 12-18-2022 ambulatory Wilmer Driver MAURILIO.DESIGN PRINTING MACHINE SET UP OPERATOR Work Phone: Hematology/Oncology Comment on above: 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); Chronic fatigue and malaise Start: 12-17-2022 End: 12-18-2022 Telemedicine consultation with patient Wilmer Driver APRN.DESIGN PRINTING MACHINE SET UP OPERATOR Work Phone: [facility] Start: 12-16-2022 Telephone encounter Pamella bernstein RN Work Phone: Hematology/Oncology Comment on above: Appointment Start: 12-08-2022 End: 12-08-2022 ambulatory Jose Najera MD Work Phone: Hematology/Oncology Comment on above: Test results Start: 12-08-2022 Telephone encounter Enma Osuna Hematology/Oncology Comment on above: Results Start: 11-22-2022 ambulatory Lynne Ni MD Work Phone: Rheumatology Comment on above: update Start: 11-19-2022 End: 11-19-2022 ambulatory MADELAINE FERRIS Facility:[facility] Start: 11-19-2022 End: 11-19-2022 Nursing evaluation of patient and report Cele Marshall Work Phone: Hematology/Oncology Comment on above: 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); Elevated sed rate Start: 10-29-2022 End: 10-29-2022 ambulatory MADELAINE FERRIS Facility:[facility] Start: 10-22-2022 End: 10-22-2022 ambulatory MADELAINE M Cristina Facility:[facility] Start: 10-22-2022 End: 10-22-2022 Nursing evaluation [...] Start: 10-15-2022 End: 10-15-2022 ambulatory MADELAINE FERRIS Facility:[facility] Start: 09-24-2022 End: 09-25-2022 ambulatory MICKY PARNELL . Facility: Start: 09-24-2022 End: 09-24-2022 ambulatory MADELAINE FERRIS Facility:[facility] Start: 09-24-2022 End: 09-24-2022 Nursing evaluation of patient and report Cele Marshall Work Phone: Hematology/Oncology Comment on above: 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); Elevated sed rate Start: 09-10-2022 End: 09-10-[address] MADELAINE FERRIS . Facility:[facility] Start: 09-08-2022 Telephone encounter Angelia [facility] - Compliance Comment on above: Compliance Adherence Start: 09-07-2022 End: 09-07-2022 ambulatory MADELAINE FERRIS Facility:[facility] Start: 09-07-2022 End: 09-07-2022 Office outpatient visit 40 minutes Christie Phan MD Work Phone: [facility] Comment on above: Obesity, Class III, BMI >= 40 (Primary Dx); Polypharmacy; Pre-diabetes Start: 09-01-2022 End: 09-02-[address] MADELAINE FERRIS . Facility:[facility] Start: 08-29-2022 Refill Lynne Ni MD Work Phone: Rheumatology Comment on above: Refill Request Start: 08-27-2022 End: 08-27-2022 Nursing evaluation of patient and report Cele Marshall Work Phone: Hematology/Oncology Comment on above: 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); Elevated sed rate Start: 08-27-2022 End: 08-27-2022 ambulatory Wilmer Driver APRN.CNP Work Phone: Hematology/Oncology Comment on above: 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); Elevated sed rate; High total serum IgM; Chronic fatigue and malaise; JOSE RAFAEL (obstructive sleep apnea) Start: 08-27-2022 End: 08-27-2022 Patient encounter procedure Wilmer Driver GARBAGE TRUCK HELPER.DESIGN PRINTING MACHINE SET UP OPERATOR Work Phone: [facility] Start: 08-19-2022 Telephone encounter Lynne shaw MD Work Phone: Rheumatology Comment on above: Results Start: 08-18-2022 End: 08-18-2022 [facility] Start: 08-15-2022 ambulatory Lynne Ni MD Work Phone: Rheumatology Comment on above: update Start: 08-10-2022 Refill Christie Hays Work Phone: [facility] Comment on above: Refill Request Start: 07-27-2022 End: 07-27-2022 ambulatory MADELAINE Batista Cristina Facility:[facility] Start: 07-27-2022 End: 07-27-2022 ambulatory Timmy Heck GARBAGE TRUCK HELPER.DESIGN PRINTING MACHINE SET UP OPERATOR Work Phone: Neurology Comment on above: JOSE RAFAEL (obstructive sle ep apnea) (Primary Dx) Start: 07-27-2022 End: 07-27-2022 Telemedicine consultation with patient Timmy Heck APRN.DESIGN PRINTING MACHINE SET UP OPERATOR Work Phone: [facility] Start: 07-24-2022 ambulatory Lynne Ni MD Work Phone: Rheumatology Comment on above: Blood work Start: 07-24-2022 Telephone encounter Jose hooker MD Work Phone: Hematology/Oncology Comment on above: Orders (Lab Orders E xpire Before Appointment) Start: 07-21-2022 ambulatory Lawanda Miranda MD Work Phone: [facility] Start: 07-21-2022 Patient encounter procedure Lawanda Miranda [...] Follow U p PAP Rx Faxed (YUNIOR Reese) Start: 04-24-2022 Telephone encounter Luann Carrizales v, MD Work Phone: [facility] Comment on above: Future Appointment ( Scheduling questions/concerns) Start: 04-22-2022 Telephone encounter Eliza thapa Research Coordinator [facility] Comment on above: Appointment; Care Co ordinator - Other Start: 03-31-2022 End: 04-01-[address] MADELAINE FERRIS . Facility: Start: 03-31-2022 Refill Christie Hays Work Phone: [facility] Comment on above: Refill Request Start: 03-30-2022 ambulatory Misty Nelson MD Work Phone: Allergy Comment on above: Pneumovax Start: 03-30-2022 E-mail encounter fro m caregiver Misty Nelson MD Work Phone: [facility] Start: 03-26-2022 Telephone encounter Misty boyer MD Work Phone: Allergy Comment on above: Pneumovax Start: 03-21-2022 End: 03-21-[address] EL ROSSI . Facility:[facility] Start: 03-18-2022 End: 03-18-2022 ambulatory Jose Najera MD Work Phone: Hematology/Oncology Comment on above: 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); High total serum IgM A1c Start: 03-18-2022 E-mail encounter fro m caregiver Christie Phan MD Work Phone: [facility] Start: 03-18-2022 End: 03-18-2022 Patient encounter procedure Jose Najera MD Work Phone: [facility] Start: 03-12-2022 End: 03-13-[address] MADELAINE FERRIS . Facility:[facility] Start: 03-10-2022 End: 03-10-2022 ambulatory Tiffany Head DO Work Phone: Infectious Disease Comment on above: results Raised level of immu noglobulins (Primary Dx); Wound healing, delayed; Current smoker Start: 03-10-2022 E-mail encounter fro daniela caregiver Tiffany Head DO Work Phone: [facility] Start: 03-10-2022 End: 03-10-2022 Telemedicine consultation with patient Misty Leslie LEE Work Phone: [place] Start: 03-09-2022 End: 03-10-2022 ambulatory GAY ENCISO Facility:[facility] Start: 03-09-2022 End: 03-09-2022 Office consultation new/estab patient 80 min Christie Phan MD Work Phone: [facility] Comment on above: Obesity, Class II, B NV 35-39.9 (Primary Dx); Somnolence, daytime; Chronic fatigue and malaise; Obesity, unspecified classification, unspecified obesity type, unspecified whether serious comorbidity present; Snoring; POTS (postural orthostatic tachycardia syndrome); Elevated glucose; Raised level of immunoglobulins Start: 03-06-2022 Telephone encounter Tiffany Celina leroyjuancarlos DO Work Phone: Infectious Disease Comment on [...] encounter procedure Jose Najera MD Work Phone: [facility] Start: 03-02-2022 Chart abstracting Jose waterman MD [...] with patient Tiffany Head DO Work Phone: [facility] Start: 02-14-2022 End: 02-15-[address] MADELAINE FERRIS . Facility: Start: 11-26-2021 End: 11-26-2021 ambulatory Mirela Kelsey Other [facility] Other Start: 11-26-2021 Office outpatient vi sit [...] 10-15-2021 End: 10-15-2021 ambulatory Mirela Kelsey Other [facility] Other Start: 10-15-2021 Office outpatient vi sit 25 minutes Mirela LOPEZ Infectious Disease Start: 10-03-2021 End: [address] MIRELA KELSEY Facility:[facility] Start: 09-18-2021 End: 09-18-2021 ambulatory Mirela Kelsey Other [facility] Other Start: 09-18-2021 Telephone encounter Mirela Kelsey FP [facility] Infectious Disease Start: 09-11-2021 End: 09-11-2021 ambulatory Mirela Kelsey Other [facility] Other Start: 09-11-2021 Office outpatient ne w 45 minutes Mirela Kelsey [facility] Start: 10-07-2020 End: 10-08-2020 ambulatory JAREN HOLLEY [facility] Start: 10-07-2020 End: 10-07-2020 Subsequent hospital visit by physician [facility] [employer] Sales Supervisor Jameson JOHNSON Real Estate Sales Supervisor Comment on above: Arrived Start: 09-17-2018 End: 09-17-2018 Patient encounter procedure Bettina Jiménez Facility:[facility] Start: 09-14-2018 End: 09-17-2018 Patient encounter procedure VICTOR MANUEL GUZMAN [facility] Procedures Date Procedure Procedure Detail Performing Clinician Start: 06-09-2023 ECG 12-LEAD MICHELLE [place] Start: 06-09-2023 Ecg routine ecg w/le ast 12 lds w/i&r Michelle Britton GARBAGE TRUCK HELPER-DESIGN PRINTING MACHINE SET UP OPERATOR Work Phone: Start: 10-07-2020 End: 10-07-2020 Cardiac [...] Start: 03-17-2025 Diabetes mellitus screening Diabetes Screening [facility] Start: 01-24-2024 Influenza vaccination Influenza Vacc ine (#1) [facility] Comment on above: Postponed from 01/22 (Patient Refused) Start: 09-13-2023 End: 09-13-2023 Patient encounter procedure 09/13/2023 9:00 AM EDT Office Visit [facility] [address] [place] [address] Juan Luis Richardson MD [address] [place] [id number] [facility] Start: 07-19-2023 End: 07-19-2023 Patient encounter procedure 07/19/2023 9:15 AM EST Office Visit [facility] [address] [place] [address] Aurora Patel MD [address] [place] [address] [facility] Start: 07-15-2023 End: 07-15-2023 Patient encounter procedure 07/15/2023 10:50 AM EST Office Visit [facility] [address] [place] [address] Cynthia English MD [address] [place] [address] [facility] Start: 07-06-2023 End: 07-06-2023 Patient encounter procedure 07/06/2023 2:30 PM EST Office Visit [facility] [address] [facility] [address] [place] [address], [place] [id number] Juan Luis Richardson MD [address] [place] [facility] [address] [place] [address] [id number] [facility] 210 Start: 07-06-2023 End: 07-06-2024 Protein electrophoresis, serum Protein electrophoresis, serum Lab Routine Autoimmune disease (CMS/HCC) Autonomic dysfunction Expected: 07/06/2023 (Approximate), Expires: 07/06/2024 [facility] Work Phone: Comment on above: Expected: 07/06/2023 (Approximate), Expires: 07/06/2024 Start: 07-06-2023 End: 07-06-2024 Protein electrophoresis, urine Protein electrophoresis, urine Lab Routine Autoimmune disease (CMS/HCC) Autonomic dysfunction Expected: 07/06/2023 (Approximate), Expires: 07/06/2024 [facility] Comment on above: Expected: 07/06/2023 (Approximate), Expires: 07/06/2024 Start: 06-09-2023 End: 06-09-2024 Holter monitor study Holter Or Event 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 Specialist Cardiac Services Routine Irregular heart rate Expected: 06/09/2023 (Approximate), Expires: 06/09/2024 [facility] Work Phone: Comment on above: Expected: 06/09/2023 (Approximate), Expires: 06/09/2024 Start: 06-09-2023 End: 06-09-2024 Lipid 1996 panel - Serum or Plasma Lipid Panel Lab Routine Primary hypertension Expected: 06/09/2023 (Approximate), Expires: 06/09/2024 [facility] Work Phone: Comment on above: Expected: 06/09/2023 (Approximate), Expires: 06/09/2024 Start: 06-09-2023 End: 06-09-2024 Thyrotropin [Units/volume] in Serum or Plasma Thyroid Stimulating Hormone Lab Routine Irregular heart rate Expected: 06/09/2023 (Approximate), Expires: 06/09/2024 [facility] Work Phone: Comment on above: Expected: 06/09/2023 (Approximate), Expires: 06/09/2024 Start: 06-09-2023 End: 06-09-2024 Thyroxine (T4) free [Mass/volume] in Serum or Plasma Thyroxine, Free Lab Routine Irregular heart rate Expected: 06/09/2023 (Approximate), Expires: 06/09/2024 [facility] Work Phone: Comment on above: Expected: 06/09/2023 (Approximate), Expires: 06/09/2024 Start: 06-09-2023 End: 06-09-2025 US Heart Transthoracic Transthoracic Echo (TTE) Complete Echocardiography Routine Irregular heart rate Obstructive sleep apnea syndrome Expected: 06/09/2023 (Approximate), Expires: 06/09/2025 [facility] Service Area Work Phone: Comment on above: Expected: 06/09/2023 (Approximate), Expires: 06/09/2025 Start: 04-25-2023 End: 01-25-2024 25-hydroxyvitamin D3 [Mass/volume] in Serum or Plasma VITAMIN D 25 HYDROXY Lab Routine Vitamin D deficiency Expected: 04/25/2023 (Approximate), Expires: 01/25/2024 [facility] Work Phone: Comment on above: Expected: 04/25/2023 (Approximate), Expires: 01/25/2024 Start: 04-25-2023 End: 01-25-2024 C reactive protein [Mass/volume] in Serum or Plasma C-REACTIVE PROTEIN (CRP) Lab Routine Elevated sed rate Elevated C-reactive protein (CRP) Expected: 04/25/2023 (Approximate), Expires: 01/25/2024 [facility] Work Phone: Comment on above: Expected: 04/25/2023 (Approximate), Expires: 01/25/2024 Start: 04-25-2023 End: 01-25-2024 CBC panel - Blood by Automated count CBC Lab Routine Anemia of chronic disease Expected: 04/25/2023 (Approximate), Expires: 01/25/2024 [facility] Work Phone: Comment on above: Expected: 04/25/2023 (Approximate), Expires: 01/25/2024 Start: 04-25-2023 End: 01-25-2024 Comprehensive metabolic 2000 panel - Serum or Plasma COMP METABOLIC PANEL Lab Routine Elevated LFTs Expected: 04/25/2023 (Approximate), Expires: 01/25/2024 [facility] Work Phone: Comment on above: Expected: 04/25/2023 (Approximate), Expires: 01/25/2024 Start: 04-25-2023 End: 01-25-2024 Erythrocyte sedimentation rate SED RATE WESTERGREN Lab Routine Elevated sed rate Elevated C-reactive protein (CRP) Expected: 04/25/2023 (Approximate), Expires: 01/25/2024 [facility] Work Phone: Comment on above: Expected: 04/25/2023 (Approximate), Expires: 01/25/2024 Start: 04-20-2023 COVID-19 Vaccine (4 - Pfizer risk series) COVID-19 Vaccine (4 - Pfizer risk series) [facility] Start: 04-20-2023 Covid-19 Vaccine ( season) Covid-19 Vaccine ( season) [facility] Start: 04-20-2023 Covid-19 Vaccine ( season) Covid-19 Vaccine () [facility] Start: 04-16-2023 End: 02-20-2024 CBC W Auto Differential panel - Blood CBC + DIFF Lab Routine Megaloblastic anemia due to vitamin B12 deficiency Elevated sed rate Chronic fatigue and malaise High total serum IgM JOSE RAFAEL (obstructive sleep apnea) Expected: 04/16/2023 (Approximate), Expires: 02/20/2024 [facility] Work Phone: Comment on above: Expected: 04/16/2023 (Approximate), Expires: 02/20/2024 Start: 04-16-2023 End: 02-20-2024 Cobalamin (Vitamin B12) [Mass/volume] in Serum or Plasma VITAMIN B12 BLOOD Lab Routine Megaloblastic anemia due to vitamin B12 deficiency Elevated sed rate Chronic fatigue and malaise High total serum IgM JOSE RAFAEL (obstructive sleep apnea) Expected: 04/16/2023 (Approximate), Expires: 02/20/2024 [facility] Work Phone: Comment on above: Expected: 04/16/2023 (Approximate), Expires: 02/20/2024 Start: 04-16-2023 End: 02-20-2024 Comprehensive metabolic 2000 panel - Serum or Plasma COMP METABOLIC PANEL Lab Routine Megaloblastic anemia due to vitamin B12 deficiency Elevated sed rate Chronic fatigue and malaise High total serum IgM JOSE RAFAEL (obstructive sleep apnea) Expected: 04/16/2023 (Approximate), Expires: 02/20/2024 [facility] Work Phone: Comment on above: Expected: 04/16/2023 (Approximate), Expires: 02/20/2024 Start: 04-16-2023 End: 02-20-2024 Ferritin [Mass/volume] in Serum or Plasma FERRITIN BLD Lab Routine Megaloblastic anemia due to vitamin B12 deficiency Elevated sed rate Chronic fatigue and malaise High total serum IgM JOSE RAFAEL (obstructive sleep apnea) Expected: 04/16/2023 (Approximate), Expires: 02/20/2024 [facility] Work Phone: Comment on above: Expected: 04/16/2023 (Approximate), Expires: 02/20/2024 Start: 04-16-2023 End: 02-20-2024 Folate [Mass/volume] in Serum or Plasma FOLATE SERUM Lab Routine Megaloblastic anemia due to vitamin B12 deficiency Elevated sed rate Chronic fatigue and malaise High total serum IgM JOSE RAFAEL (obstructive sleep apnea) Expected: 04/16/2023 (Approximate), Expires: 02/20/2024 [facility] Work Phone: Comment on above: Expected: 04/16/2023 (Approximate), Expires: 02/20/2024 Start: 04-16-2023 End: 02-20-2024 Iron and Iron binding capacity panel - Serum or Plasma IRON + TIBC Lab Routine Megaloblastic anemia due to vitamin B12 deficiency Elevated sed rate Chronic fatigue and malaise High total serum IgM JOSE RAFAEL (obstructive sleep apnea) Expected: 04/16/2023 (Approximate), Expires: 02/20/2024 [facility] Work Phone: Comment on above: Expected: 04/16/2023 (Approximate), Expires: 02/20/2024 Start: 03-10-2023 End: 06-09-2023 Insulin [Units/volume] in Serum or Plasma INSULIN ASSAY BLOOD Lab Routine Insulin resistance, unspecified Expected: 03/10/2023, Expires: 06/09/2023 [facility] Work Phone: Comment on above: Expected: 03/10/2023 , Expires: 06/09/2023 Start: 03-10-2023 End: 06-09-2023 INSULIN ANTIBODY BLD INSULIN ANTIBODY BLD Lab Routine Insulin resistance, unspecified Expected: 03/10/2023, Expires: 06/09/2023 [facility] Work Phone: Comment on above: Expected: 03/10/2023 , Expires: 06/09/2023 Start: 02-11-2023 End: 02-08-2024 [id number] [Mass/volume] in Serum or Plasma B2 MICROGLOBULIN B Lab Routine Megaloblastic anemia due to vitamin B12 deficiency High total serum IgM Elevated sed rate Expected: 02/11/2023 (Approximate), Expires: 02/08/2024 [facility] Work Phone: Comment on above: Expected: 02/11/2023 (Approximate), Expires: 02/08/2024 Start: 02-11-2023 End: 02-08-2024 Calcium.ionized [Moles/volume] in Blood CALCIUM IONIZED BLOOD Lab Routine Megaloblastic anemia due to vitamin B12 deficiency High total serum IgM Elevated sed rate Expected: 02/11/2023 (Approximate), Expires: 02/08/2024 [facility] Work Phone: Comment on above: Expected: 02/11/2023 (Approximate), Expires: 02/08/2024 Start: 02-11-2023 End: 02-08-2024 CBC W Auto Differential panel - Blood CBC + DIFF Lab Routine Megaloblastic anemia due to vitamin B12 deficiency High total serum IgM Elevated sed rate Expected: 02/11/2023 (Approximate), Expires: 02/08/2024 [facility] Work Phone: Comment on above: Expected: 02/11/2023 (Approximate), Expires: 02/08/2024 Start: 02-11-2023 End: 02-08-2024 Cobalamin (Vitamin B12) [Mass/volume] in Serum or Plasma VITAMIN B12 BLOOD Lab Routine Megaloblastic anemia due to vitamin B12 deficiency High total serum IgM Elevated sed rate Expected: 02/11/2023 (Approximate), Expires: 02/08/2024 [facility] Work Phone: Comment on above: Expected: 02/11/2023 (Approximate), Expires: 02/08/2024 Start: 02-11-2023 End: 02-08-2024 Comprehensive metabolic 2000 panel - Serum or Plasma COMP METABOLIC PANEL Lab Routine Megaloblastic anemia due to vitamin B12 deficiency High total serum IgM Elevated sed rate Expected: 02/11/2023 (Approximate), Expires: 02/08/2024 [facility] Work Phone: Comment on above: Expected: 02/11/2023 (Approximate), Expires: 02/08/2024 Start: 02-11-2023 End: 02-08-2024 Ferritin [Mass/volume] in Serum or Plasma FERRITIN BLD Lab Routine Megaloblastic anemia due to vitamin B12 deficiency High total serum IgM Elevated sed rate Expected: 02/11/2023 (Approximate), Expires: 02/08/2024 [facility] Work Phone: Comment on above: Expected: 02/11/2023 (Approximate), Expires: 02/08/2024 Start: 02-11-2023 End: 02-08-2024 Folate [Mass/volume] in Serum or Plasma FOLATE SERUM Lab Routine Megaloblastic anemia due to vitamin B12 deficiency High total serum IgM Elevated sed rate Expected: 02/11/2023 (Approximate), Expires: 02/08/2024 [facility] Work Phone: Comment on above: Expected: 02/11/2023 (Approximate), Expires: 02/08/2024 Start: 02-11-2023 End: 02-08-2024 Iron and Iron binding capacity panel - Serum or Plasma IRON + TIBC Lab Routine Megaloblastic anemia due to vitamin B12 deficiency High total serum IgM Elevated sed rate Expected: 02/11/2023 (Approximate), Expires: 02/08/2024 [facility] Work Phone: Comment on above: Expected: 02/11/2023 (Approximate), Expires: 02/08/2024 Start: 02-11-2023 End: 04-13-2023 KAPPA/FARMER,FREE,SER KAPPA/FARMER,FREE,SER Lab Routine Megaloblastic anemia due to vitamin B12 deficiency High total serum IgM Elevated sed rate Expected: 02/11/2023 (Approximate), Expires: 04/13/2023 [facility] Work Phone: Comment on above: Expected: 02/11/2023 (Approximate), Expires: 04/13/2023 Start: 02-11-2023 End: 02-08-2024 Lactate dehydrogenase [Enzymatic activity/volume] in Serum or Plasma LD LACTATE DEHYDRO Lab Routine Megaloblastic anemia due to vitamin B12 deficiency High total serum IgM Elevated sed rate Expected: 02/11/2023 (Approximate), Expires: 02/08/2024 [facility] Work Phone: Comment on above: Expected: 02/11/2023 (Approximate), Expires: 02/08/2024 Start: 02-11-2023 End: 02-08-2024 MONOCLONAL PROTEIN, SERUM (BLOOD) MONOCLONAL PROTEIN, SERUM (BLOOD) Lab Routine Megaloblastic anemia due to vitamin B12 deficiency High total serum IgM Elevated sed rate Expected: 02/11/2023 (Approximate), Expires: 02/08/2024 [facility] Work Phone: Comment on above: Expected: 02/11/2023 (Approximate), Expires: 02/08/2024 Start: 02-11-2023 End: 02-08-2024 Phosphate [Mass/volume] in Serum or Plasma PHOSPHORUS INORGANIC Lab Routine Megaloblastic anemia due to vitamin B12 deficiency High total serum IgM Elevated sed rate Expected: 02/11/2023 (Approximate), Expires: 02/08/2024 [facility] Work Phone: Comment on above: Expected: 02/11/2023 (Approximate), Expires: 02/08/2024 Start: 02-11-2023 End: 02-08-2024 PROTEIN ELECTROPHORESIS SERUM W/INTERP PROTEIN ELECTROPHORESIS SERUM W/INTERP Lab Routine Megaloblastic anemia due to vitamin B12 deficiency High total serum IgM Elevated sed rate Expected: 02/11/2023 (Approximate), Expires: 02/08/2024 [facility] Work Phone: Comment on above: Expected: 02/11/2023 (Approximate), Expires: 02/08/2024 Start: 02-11-2023 End: 02-08-2024 Urate [Mass/volume] in Serum or Plasma URIC ACID BLOOD Lab Routine Megaloblastic anemia due to vitamin B12 deficiency High total serum IgM Elevated sed rate Expected: 02/11/2023 (Approximate), Expires: 02/08/2024 [facility] Work Phone: Comment on above: Expected: 02/11/2023 (Approximate), Expires: 02/08/2024 Start: 01-22-2023 Influenza vaccination [facility] Start: 12-17-2022 End: 10-23-2023 CBC W Auto Differential panel - Blood CBC + DIFF Lab Routine Megaloblastic anemia due to vitamin B12 deficiency Expected: 12/17/2022 (Approximate), Expires: 10/23/2023 [facility] Work Phone: Comment on above: Expected: 12/17/2022 (Approximate), Expires: 10/23/2023 Start: 12-17-2022 End: 10-23-2023 Cobalamin (Vitamin B12) [Mass/volume] in Serum or Plasma VITAMIN B12 BLOOD Lab Routine Megaloblastic anemia due to vitamin B12 deficiency Expected: 12/17/2022 (Approximate), Expires: 10/23/2023 [facility] Work Phone: Comment on above: Expected: 12/17/2022 (Approximate), Expires: 10/23/2023 Start: 12-17-2022 End: 10-23-2023 Comprehensive metabolic 2000 panel - Serum or Plasma COMP METABOLIC PANEL Lab Routine Megaloblastic anemia due to vitamin B12 deficiency Expected: 12/17/2022 (Approximate), Expires: 10/23/2023 [facility] Work Phone: Comment on above: Expected: 12/17/2022 (Approximate), Expires: 10/23/2023 Start: 12-17-2022 End: 10-23-2023 Ferritin [Mass/volume] in Serum or Plasma FERRITIN BLD Lab Routine Megaloblastic anemia due to vitamin B12 deficiency Expected: 12/17/2022 (Approximate), Expires: 10/23/2023 [facility] Work Phone: Comment on above: Expected: 12/17/2022 (Approximate), Expires: 10/23/2023 Start: 12-17-2022 End: 10-23-2023 Folate [Mass/volume] in Serum or Plasma FOLATE SERUM Lab Routine Megaloblastic anemia due to vitamin B12 deficiency Expected: 12/17/2022 (Approximate), Expires: 10/23/2023 [facility] Work Phone: Comment on above: Expected: 12/17/2022 (Approximate), Expires: 10/23/2023 Start: 12-17-2022 End: 10-23-2023 Iron and Iron binding capacity panel - Serum or Plasma IRON + TIBC Lab Routine Megaloblastic anemia due to vitamin B12 deficiency Expected: 12/17/2022 (Approximate), Expires: 10/23/2023 [facility] Work Phone: Comment on above: Expected: 12/17/2022 (Approximate), Expires: 10/23/2023 Start: 10-23-2022 End: 12-23-2022 25-hydroxyvitamin D3 [Mass/volume] in Serum or Plasma VITAMIN D 25 HYDROXY Lab Routine Megaloblastic anemia due to vitamin B12 deficiency Elevated sed rate High total serum IgM Chronic fatigue and malaise JOSE RAFAEL (obstructive sleep apnea) Expected: 10/23/2022, Expires: 12/23/2022 [facility] Work Phone: Comment on above: Expected: 10/23/2022 , Expires: 12/23/2022 Start: 10-23-2022 End: 12-23-2022 C reactive protein [Mass/volume] in Serum or Plasma C-REACTIVE PROTEIN (CRP) Lab Routine Megaloblastic anemia due to vitamin B12 deficiency Elevated sed rate High total serum IgM Chronic fatigue and malaise JOSE RAFAEL (obstructive sleep apnea) Expected: 10/23/2022, Expires: 12/23/2022 [facility] Work Phone: Comment on above: Expected: 10/23/2022 , Expires: 12/23/2022 Start: 10-23-2022 End: 12-23-2022 CBC W Auto Differential panel - Blood CBC + DIFF Lab Routine Megaloblastic anemia due to vitamin B12 deficiency Elevated sed rate High total serum IgM Chronic fatigue and malaise JOSE RAFAEL (obstructive sleep apnea) Expected: 10/23/2022, Expires: 12/23/2022 [facility] Work Phone: Comment on above: Expected: 10/23/2022 , Expires: 12/23/2022 Start: 10-23-2022 End: 12-23-2022 Cobalamin (Vitamin B12) [Mass/volume] in Serum or Plasma VITAMIN B12 BLOOD Lab Routine Megaloblastic anemia due to vitamin B12 deficiency Elevated sed rate High total serum IgM Chronic fatigue and malaise JOSE RAFAEL (obstructive sleep apnea) Expected: 10/23/2022, Expires: 12/23/2022 [facility] Work Phone: Comment on above: Expected: 10/23/2022 , Expires: 12/23/2022 Start: 10-23-2022 End: 12-23-2022 Comprehensive metabolic 2000 panel - Serum or Plasma COMP METABOLIC PANEL Lab Routine Megaloblastic anemia due to vitamin B12 deficiency Elevated sed rate High total serum IgM Chronic fatigue and malaise JOSE RAFAEL (obstructive sleep apnea) Expected: 10/23/2022, Expires: 12/23/2022 [facility] Work Phone: Comment on above: Expected: 10/23/2022 , Expires: 12/23/2022 Start: 10-23-2022 End: 12-23-2022 Erythrocyte sedimentation rate SED RATE WESTERGREN Lab Routine Megaloblastic anemia due to vitamin B12 deficiency Elevated sed rate High total serum IgM Chronic fatigue and malaise JOSE RAFAEL (obstructive sleep apnea) Expected: 10/23/2022, Expires: 12/23/2022 [facility] Work Phone: Comment on above: Expected: 10/23/2022 , Expires: 12/23/2022 Start: 10-23-2022 End: 12-23-2022 Lactate dehydrogenase [Enzymatic activity/volume] in Serum or Plasma LD LACTATE DEHYDRO Lab Routine Megaloblastic anemia due to vitamin B12 deficiency Elevated sed rate High total serum IgM Chronic fatigue and malaise JOSE RAFAEL (obstructive sleep apnea) Expected: 10/23/2022, Expires: 12/23/2022 [facility] Work Phone: Comment on above: Expected: 10/23/2022 , Expires: 12/23/2022 Start: 10-23-2022 End: 12-23-2022 MONOCLONAL PROTEIN, SERUM (BLOOD) MONOCLONAL PROTEIN, SERUM (BLOOD) Lab Routine Megaloblastic anemia due to vitamin B12 deficiency Elevated sed rate High total serum IgM Chronic fatigue and malaise JOSE RAFAEL (obstructive sleep apnea) Expected: 10/23/2022, Expires: 12/23/2022 [facility] Work Phone: Comment on above: Expected: 10/23/2022 , Expires: 12/23/2022 Start: 10-23-2022 End: 12-23-2022 PROT ELECT SERUM WITH DANA AND INTERP PROT ELECT SERUM WITH DANA AND INTERP Lab Routine Megaloblastic anemia due to vitamin B12 deficiency Elevated sed rate High total serum IgM Chronic fatigue and malaise JOSE RAFAEL (obstructive sleep apnea) Expected: 10/23/2022, Expires: 12/23/2022 [facility] Work Phone: Comment on above: Expected: 10/23/2022 , Expires: 12/23/2022 Start: 09-19-2022 End: 08-20-2023 CBC panel - Blood by Automated count CBC Lab Routine Anemia of chronic disease Expected: 09/19/2022 (Approximate), Expires: 08/20/2023 [facility] Work Phone: Comment on above: Expected: 09/19/2022 (Approximate), Expires: 08/20/2023 Start: 09-19-2022 End: 08-20-2023 Comprehensive metabolic 2000 panel - Serum or Plasma COMP METABOLIC PANEL Lab Routine Elevated LFTs Expected: 09/19/2022 (Approximate), Expires: 08/20/2023 [facility] Work Phone: Comment on above: Expected: 09/19/2022 (Approximate), Expires: 08/20/2023 Start: 09-19-2022 End: 11-19-2022 TPMT PHENOTYPE/ENZYME ACTIVITY TPMT PHENOTYPE/ENZYME ACTIVITY Lab Routine 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 correction 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 Expected: 09/19/2022 (Approximate), Expires: 11/19/2022 [facility] Work Phone: Comment on above: Expected: 09/19/2022 (Approximate), Expires: 11/19/2022 Start: 08-28-2022 End: 10-28-2022 25-hydroxyvitamin D3 [Mass/volume] in Serum or Plasma VITAMIN D 25 HYDROXY Lab Routine Megaloblastic anemia due to vitamin B12 deficiency Elevated sed rate High total serum IgM Chronic fatigue and malaise Expected: 08/28/2022 (Approximate), Expires: 10/28/2022 [facility] Work Phone: Comment on above: Expected: 08/28/2022 (Approximate), Expires: 10/28/2022 Start: 08-28-2022 End: 07-26-2023 [id number] [Mass/volume] in Serum or Plasma B2 MICROGLOBULIN B Lab Routine Megaloblastic anemia due to vitamin B12 deficiency Elevated sed rate High total serum IgM Chronic fatigue and malaise Expected: 08/28/2022 (Approximate), Expires: 07/26/2023 [facility] Work Phone: Comment on above: Expected: 08/28/2022 (Approximate), Expires: 07/26/2023 Start: 08-28-2022 End: 10-28-2022 C reactive protein [Mass/volume] in Serum or Plasma C-REACTIVE PROTEIN (CRP) Lab Routine Megaloblastic anemia due to vitamin B12 deficiency Elevated sed rate High total serum IgM Chronic fatigue and malaise Expected: 08/28/2022 (Approximate), Expires: 10/28/2022 [facility] Work Phone: Comment on above: Expected: 08/28/2022 (Approximate), Expires: 10/28/2022 Start: 08-28-2022 End: 07-26-2023 Calcium.ionized [Moles/volume] in Blood CALCIUM IONIZED BLOOD Lab Routine Megaloblastic anemia due to vitamin B12 deficiency Elevated sed rate High total serum IgM Chronic fatigue and malaise Expected: 08/28/2022 (Approximate), Expires: 07/26/2023 [facility] Work Phone: Comment on above: Expected: 08/28/2022 (Approximate), Expires: 07/26/2023 Start: 08-28-2022 End: 07-26-2023 CBC W Auto Differential panel - Blood CBC + DIFF Lab Routine Megaloblastic anemia due to vitamin B12 deficiency Elevated sed rate High total serum IgM Chronic fatigue and malaise Expected: 08/28/2022 (Approximate), Expires: 07/26/2023 [facility] Work Phone: Comment on above: Expected: 08/28/2022 (Approximate), Expires: 07/26/2023 Start: 08-28-2022 End: 10-28-2022 Cobalamin (Vitamin B12) [Mass/volume] in Serum or Plasma VITAMIN B12 BLOOD Lab Routine Megaloblastic anemia due to vitamin B12 deficiency Elevated sed rate High total serum IgM Chronic fatigue and malaise Expected: 08/28/2022 (Approximate), Expires: 10/28/2022 [facility] Work Phone: Comment on above: Expected: 08/28/2022 (Approximate), Expires: 10/28/2022 Start: 08-28-2022 End: 07-26-2023 Comprehensive metabolic 2000 panel - Serum or Plasma COMP METABOLIC PANEL Lab Routine Megaloblastic anemia due to vitamin B12 deficiency Elevated sed rate High total serum IgM Chronic fatigue and malaise Expected: 08/28/2022 (Approximate), Expires: 07/26/2023 [facility] Work Phone: Comment on above: Expected: 08/28/2022 (Approximate), Expires: 07/26/2023 Start: 08-28-2022 End: 10-28-2022 Erythrocyte sedimentation rate SED RATE WESTERGREN Lab Routine Megaloblastic anemia due to vitamin B12 deficiency Elevated sed rate High total serum IgM Chronic fatigue and malaise Expected: 08/28/2022 (Approximate), Expires: 10/28/2022 [facility] Work Phone: Comment on above: Expected: 08/28/2022 (Approximate), Expires: 10/28/2022 Start: 08-28-2022 End: 10-28-2022 KAPPA/FARMER,FREE,SER KAPPA/FARMER,FREE,SER Lab Routine Megaloblastic anemia due to vitamin B12 deficiency Elevated sed rate High total serum IgM Chronic fatigue and malaise Expected: 08/28/2022 (Approximate), Expires: 10/28/2022 [facility] Work Phone: Comment on above: Expected: 08/28/2022 (Approximate), Expires: 10/28/2022 Start: 08-28-2022 End: 07-26-2023 Lactate dehydrogenase [Enzymatic activity/volume] in Serum or Plasma LD LACTATE DEHYDRO Lab Routine Megaloblastic anemia due to vitamin B12 deficiency Elevated sed rate High total serum IgM Chronic fatigue and malaise Expected: 08/28/2022 (Approximate), Expires: 07/26/2023 [facility] Work Phone: Comment on above: Expected: 08/28/2022 (Approximate), Expires: 07/26/2023 Start: 08-28-2022 End: 07-26-2023 MONOCLONAL PROTEIN, SERUM (BLOOD) MONOCLONAL PROTEIN, SERUM (BLOOD) Lab Routine Megaloblastic anemia due to vitamin B12 deficiency Elevated sed rate High total serum IgM Chronic fatigue and malaise Expected: 08/28/2022 (Approximate), Expires: 07/26/2023 [facility] Work Phone: Comment on above: Expected: 08/28/2022 (Approximate), Expires: 07/26/2023 Start: 08-28-2022 End: 07-26-2023 Phosphate [Mass/volume] in Serum or Plasma PHOSPHORUS INORGANIC Lab Routine Megaloblastic anemia due to vitamin B12 deficiency Elevated sed rate High total serum IgM Chronic fatigue and malaise Expected: 08/28/2022 (Approximate), Expires: 07/26/2023 [facility] Work Phone: Comment on above: Expected: 08/28/2022 (Approximate), Expires: 07/26/2023 Start: 08-28-2022 End: 07-26-2023 PROTEIN ELECTROPHORESIS SERUM W/INTERP PROTEIN ELECTROPHORESIS SERUM W/INTERP Lab Routine Megaloblastic anemia due to vitamin B12 deficiency Elevated sed rate High total serum IgM Chronic fatigue and malaise Expected: 08/28/2022 (Approximate), Expires: 07/26/2023 [facility] Work Phone: Comment on above: Expected: 08/28/2022 (Approximate), Expires: 07/26/2023 Start: 08-28-2022 End: 07-26-2023 Urate [Mass/volume] in Serum or Plasma URIC ACID BLOOD Lab Routine Megaloblastic anemia due to vitamin B12 deficiency Elevated sed rate High total serum IgM Chronic fatigue and malaise Expected: 08/28/2022 (Approximate), Expires: 07/26/2023 [facility] Work Phone: Comment on above: Expected: 08/28/2022 (Approximate), Expires: 07/26/2023 Start: 07-15-2022 End: 05-20-2023 [id number] [Mass/volume] in Serum or Plasma B2 MICROGLOBULIN B Lab Routine High total serum IgM Expected: 07/15/2022 (Approximate), Expires: 05/20/2023 [facility] Work Phone: Comment on above: Expected: 07/15/2022 (Approximate), Expires: 05/20/2023 Start: 07-15-2022 End: 05-20-2023 Calcium.ionized [Moles/volume] in Blood CALCIUM IONIZED BLOOD Lab Routine High total serum IgM Expected: 07/15/2022 (Approximate), Expires: 05/20/2023 [facility] Work Phone: Comment on above: Expected: 07/15/2022 (Approximate), Expires: 05/20/2023 Start: 07-15-2022 End: 05-20-2023 CBC W Auto Differential panel - Blood CBC + DIFF Lab Routine High total serum IgM Expected: 07/15/2022 (Approximate), Expires: 05/20/2023 [facility] Work Phone: Comment on above: Expected: 07/15/2022 (Approximate), Expires: 05/20/2023 Start: 07-15-2022 End: 05-20-2023 Comprehensive metabolic 2000 panel - Serum or Plasma COMP METABOLIC PANEL Lab Routine High total serum IgM Expected: 07/15/2022 (Approximate), Expires: 05/20/2023 [facility] Work Phone: Comment on above: Expected: 07/15/2022 (Approximate), Expires: 05/20/2023 Start: 07-15-2022 End: 09-14-2022 KAPPA/FARMER,FREE,SER KAPPA/FARMER,FREE,SER Lab Routine High total serum IgM Expected: 07/15/2022 (Approximate), Expires: 09/14/2022 [facility] Work Phone: Comment on above: Expected: 07/15/2022 (Approximate), Expires: 09/14/2022 Start: 07-15-2022 End: 05-20-2023 Lactate dehydrogenase [Enzymatic activity/volume] in Serum or Plasma LD LACTATE DEHYDRO Lab Routine High total serum IgM Expected: 07/15/2022 (Approximate), Expires: 05/20/2023 [facility] Work Phone: Comment on above: Expected: 07/15/2022 (Approximate), Expires: 05/20/2023 Start: 07-15-2022 End: 05-20-2023 MONOCLONAL PROTEIN, SERUM (BLOOD) MONOCLONAL PROTEIN, SERUM (BLOOD) Lab Routine High total serum IgM Expected: 07/15/2022 (Approximate), Expires: 05/20/2023 [facility] Work Phone: Comment on above: Expected: 07/15/2022 (Approximate), Expires: 05/20/2023 Start: 07-15-2022 End: 05-20-2023 Phosphate [Mass/volume] in Serum or Plasma PHOSPHORUS INORGANIC Lab Routine High total serum IgM Expected: 07/15/2022 (Approximate), Expires: 05/20/2023 [facility] Work Phone: Comment on above: Expected: 07/15/2022 (Approximate), Expires: 05/20/2023 Start: 07-15-2022 End: 05-20-2023 PROTEIN ELECTROPHORESIS SERUM W/INTERP PROTEIN ELECTROPHORESIS SERUM W/INTERP Lab Routine High total serum IgM Expected: 07/15/2022 (Approximate), Expires: 05/20/2023 [facility] Work Phone: Comment on above: Expected: 07/15/2022 (Approximate), Expires: 05/20/2023 Start: 07-15-2022 End: 05-20-2023 Urate [Mass/volume] in Serum or Plasma URIC ACID BLOOD Lab Routine High total serum IgM Expected: 07/15/2022 (Approximate), Expires: 05/20/2023 [facility] Work Phone: Comment on above: Expected: 07/15/2022 (Approximate), Expires: 05/20/2023 Start: 06-05-2022 End: 03-05-2023 25-hydroxyvitamin D3 [Mass/volume] in Serum or Plasma VITAMIN D 25 HYDROXY Lab Routine Vitamin D deficiency Expected: 06/05/2022 (Approximate), Expires: 03/05/2023 [facility] Work Phone: Comment on above: Expected: 06/05/2022 (Approximate), Expires: 03/05/2023 Start: 06-05-2022 End: 03-05-2023 C reactive protein [Mass/volume] in Serum or Plasma C-REACTIVE PROTEIN (CRP) Lab Routine Elevated sed rate Elevated C-reactive protein (CRP) Expected: 06/05/2022 (Approximate), Expires: 03/05/2023 [facility] Work Phone: Comment on above: Expected: 06/05/2022 (Approximate), Expires: 03/05/2023 Start: 06-05-2022 End: 03-05-2023 Cobalamin (Vitamin B12) [Mass/volume] in Serum or Plasma VITAMIN B12 BLOOD Lab Routine Vitamin B12 deficiency Expected: 06/05/2022 (Approximate), Expires: 03/05/2023 [facility] Work Phone: Comment on above: Expected: 06/05/2022 (Approximate), Expires: 03/05/2023 Start: 06-05-2022 End: 03-05-2023 Erythrocyte sedimentation rate SED RATE WESTERGREN Lab Routine Elevated sed rate Elevated C-reactive protein (CRP) Expected: 06/05/2022 (Approximate), Expires: 03/05/2023 [facility] Work Phone: Comment on above: Expected: 06/05/2022 (Approximate), Expires: 03/05/2023 Start: 05-06-2022 End: 03-18-2023 [id number] [Mass/volume] in Serum or Plasma B2 MICROGLOBULIN B Lab Routine Megaloblastic anemia due to vitamin B12 deficiency High total serum IgM Expected: 05/06/2022 (Approximate), Expires: 03/18/2023 [facility] Work Phone: Comment on above: Expected: 05/06/2022 (Approximate), Expires: 03/18/2023 Start: 05-06-2022 End: 03-18-2023 Calcium.ionized [Moles/volume] in Blood CALCIUM IONIZED BLOOD Lab Routine Megaloblastic anemia due to vitamin B12 deficiency High total serum IgM Expected: 05/06/2022 (Approximate), Expires: 03/18/2023 [facility] Work Phone: Comment on above: Expected: 05/06/2022 (Approximate), Expires: 03/18/2023 Start: 05-06-2022 End: 03-18-2023 CBC W Auto Differential panel - Blood CBC + DIFF Lab Routine Megaloblastic anemia due to vitamin B12 deficiency High total serum IgM Expected: 05/06/2022 (Approximate), Expires: 03/18/2023 [facility] Work Phone: Comment on above: Expected: 05/06/2022 (Approximate), Expires: 03/18/2023 Start: 05-06-2022 End: 03-18-2023 Comprehensive metabolic 2000 panel - Serum or Plasma COMP METABOLIC PANEL Lab Routine Megaloblastic anemia due to vitamin B12 deficiency High total serum IgM Expected: 05/06/2022 (Approximate), Expires: 03/18/2023 [facility] Work Phone: Comment on above: Expected: 05/06/2022 (Approximate), Expires: 03/18/2023 Start: 05-06-2022 End: 03-18-2023 Ferritin [Mass/volume] in Serum or Plasma FERRITIN BLD Lab Routine Megaloblastic anemia due to vitamin B12 deficiency High total serum IgM Expected: 05/06/2022 (Approximate), Expires: 03/18/2023 [facility] Work Phone: Comment on above: Expected: 05/06/2022 (Approximate), Expires: 03/18/2023 Start: 05-06-2022 End: 03-18-2023 Iron and Iron binding capacity panel - Serum or Plasma IRON + TIBC Lab Routine Megaloblastic anemia due to vitamin B12 deficiency High total serum IgM Expected: 05/06/2022 (Approximate), Expires: 03/18/2023 [facility] Work Phone: Comment on above: Expected: 05/06/2022 (Approximate), Expires: 03/18/2023 Start: 05-06-2022 End: 03-18-2023 Lactate dehydrogenase [Enzymatic activity/volume] in Serum or Plasma LD LACTATE DEHYDRO Lab Routine Megaloblastic anemia due to vitamin B12 deficiency High total serum IgM Expected: 05/06/2022 (Approximate), Expires: 03/18/2023 [facility] Work Phone: Comment on above: Expected: 05/06/2022 (Approximate), Expires: 03/18/2023 Start: 05-06-2022 End: 03-18-2023 MONOCLONAL PROTEIN, SERUM (BLOOD) MONOCLONAL PROTEIN, SERUM (BLOOD) Lab Routine Megaloblastic anemia due to vitamin B12 deficiency High total serum IgM Expected: 05/06/2022 (Approximate), Expires: 03/18/2023 [facility] Work Phone: Comment on above: Expected: 05/06/2022 (Approximate), Expires: 03/18/2023 Start: 05-06-2022 End: 03-18-2023 Phosphate [Mass/volume] in Serum or Plasma PHOSPHORUS INORGANIC Lab Routine Megaloblastic anemia due to vitamin B12 deficiency High total serum IgM Expected: 05/06/2022 (Approximate), Expires: 03/18/2023 [facility] Work Phone: Comment on above: Expected: 05/06/2022 (Approximate), Expires: 03/18/2023 Start: 05-06-2022 End: 03-18-2023 PROTEIN ELECTROPHORESIS SERUM W/INTERP PROTEIN ELECTROPHORESIS SERUM W/INTERP Lab Routine Megaloblastic anemia due to vitamin B12 deficiency High total serum IgM Expected: 05/06/2022 (Approximate), Expires: 03/18/2023 [facility] Work Phone: Comment on above: Expected: 05/06/2022 (Approximate), Expires: 03/18/2023 Start: 05-06-2022 End: 03-18-2023 Urate [Mass/volume] in Serum or Plasma URIC ACID BLOOD Lab Routine Megaloblastic anemia due to vitamin B12 deficiency High total serum IgM Expected: 05/06/2022 (Approximate), Expires: 03/18/2023 [facility] Work Phone: Comment on above: Expected: 05/06/2022 (Approximate), Expires: 03/18/2023 Start: 04-05-2022 COVID-19 VACCINE (5 - Pfizer risk series) COVID-19 VACCINE (5 - Pfizer risk series) [facility] Start: 03-09-2022 End: 05-09-2022 Hemoglobin A1c in Blood HGB A1C Lab Routine Elevated glucose Expected: 03/09/2022, Expires: 05/09/2022 [facility] Work Phone: Comment on above: Expected: 03/09/2022 , Expires: 05/09/2022 Start: 02-24-2022 End: 04-26-2022 BARTONELLA AB PANEL BARTONELLA AB PANEL Lab Routine Swelling of lymph nodes Expected: 02/24/2022, Expires: 04/26/2022 [facility] Work Phone: Comment on above: Expected: 02/24/2022 , Expires: 04/26/2022 Start: 02-24-2022 End: 04-26-2022 BRUCELLA AB TOTAL BRUCELLA AB TOTAL Lab Routine Swelling of lymph nodes Expected: 02/24/2022, Expires: 04/26/2022 [facility] Work Phone: Comment on above: Expected: 02/24/2022 , Expires: 04/26/2022 Start: 02-24-2022 End: 04-26-2022 Cryptococcus sp Ag [Presence] in Unspecified specimen by Latex agglutination CRYPTOCOCCUS AG DET Microbiology Routine Swelling of lymph nodes Expected: 02/24/2022, Expires: 04/26/2022 [facility] Work Phone: Comment on above: Expected: 02/24/2022 , Expires: 04/26/2022 Start: 02-24-2022 End: 04-26-2022 HISTOPLASMA AG URINE HISTOPLASMA AG URINE Lab Routine Swelling of lymph nodes Expected: 02/24/2022, Expires: 04/26/2022 [facility] Work Phone: Comment on above: Expected: 02/24/2022 , Expires: 04/26/2022 Start: 02-24-2022 End: 04-26-2022 HIV 1 RNA [#/volume] (viral load) in Serum or Plasma by YESSI with probe detection HIV RNA VIRAL LOAD Lab Routine Swelling of lymph nodes Expected: 02/24/2022, Expires: 04/26/2022 [facility] Work Phone: Comment on above: Expected: 02/24/2022 , Expires: 04/26/2022 Start: 02-24-2022 End: 04-26-2022 SYPHILIS TOTAL W/REFLEX SYPHILIS TOTAL W/REFLEX Lab Routine Swelling of lymph nodes Expected: 02/24/2022, Expires: 04/26/2022 [facility] Work Phone: Comment on above: Expected: 02/24/2022 , Expires: 04/26/2022 Start: 01-22-2022 Influenza vaccination [facility] Start: 08-24-2021 COVID-19 VACCINE (4 - Booster for Pfizer series) COVID-19 VACCINE (4 - Booster for Pfizer series) [facility] Start: 01-22-2021 Influenza vaccination Flu vacc ine (Season Ended) [facility] Work Phone: Start: 2020 Lipid panel Lipid screen [facility] Work Phone: Start: 2020 Mammography [facility] Start: 2020 Screening for malign ant neoplasm of breast [facility] Start: 2010 HPV TESTING HPV TESTING [facility] Start: 2010 Screening for malign ant neoplasm of cervix [facility] Start: 2002 DTaP/Tdap/Td Vaccine s (1 - Tdap) DTaP/Tdap/Td Vaccines (1 - Tdap) [facility] Start: 2001 PAP TESTING PAP TESTING [facility] Start: 2001 Screening for malign ant neoplasm of cervix [facility] Start: 10-05-1999 DTaP/Tdap/Td vaccine (1 - Tdap) DTaP/Tdap/Td vaccine (1 - Tdap) [facility] Work Phone: Start: 10-05-1999 SHINGRIX VACCINE (1 of 2) SHINGRIX VACCINE (1 of 2) [facility] Start: 10-05-1999 Urine microalbumin profile [facility] Start: 10-05-1999 Zoster Vaccines (1 of 2) Zoster Vacc aston (1 of 2) [facility] Start: 1998 Hepatitis C screening Hepatitis C [facility] Start: 1998 HIV SCREENING HIV SCREENING [facility] Start: 1998 HIV screening HIV Screening [facility] Start: 10-05-1995 HIV screening HIV screen [facility] Work Phone: Start: 1992 COVID-19 Vaccine (1) COVID-19 Vaccin e (1) [facility] Work Phone: Start: 1986 PNEUMOCOCCAL (1 - PCV) PNEUMOCOCCAL (1 - PCV) [facility] Start: 1986 Pneumococcal vaccination [facility] Start: 1986 Pneumococcal Vaccine : Pediatrics (0 to 5 Years) and At-Risk Patients (6 to 64 Years) (1 - PCV) Pneumococcal Vaccine: Pediatrics (0 to 5 Years) and At-Risk Patients (6 to 64 Years) (1 - PCV) [facility] Start: 1981 MMR Vaccines (1 of 1 - Standard series) MMR Vaccines (1 of 1 - Standard series) [facility] Start: 1981 Varicella vaccination Varicell a Vaccines (1 of 2 - 2-dose childhood series) [facility] Start: 1981 Varicella vaccine (1 of 2 - 2-dose childhood series) Varicella vaccine (1 of 2 - 2-dose childhood series) [employer] Phone: Start: 1980 HEPATITIS B (1 of 3 - 3-dose series) HEPATITIS B (1 of 3 - 3-dose series) [facility] Start: 1980 Hepatitis B Vaccine (1 of 3 - 3-dose series) Hepatitis B Vaccine (1 of 3 - 3-dose series) [facility] Start: 1980 Hepatitis B Vaccines (1 of 3 - 3-dose series) Hepatitis B Vaccines (1 of 3 - 3-dose series) [facility] Start: 1980 Hepatitis C screening Hepatitis C sc reen [employer] Phone: Start: 1980 HIV screening HIV Screening [facility] Start: 1980 Lipid panel Lipid Panel [facility] Start: 1980 Screening for osteoporosis Bone Density Scan [facility] Start: 1980 Yearly Adult Physical Yearly Adult P hysical [facility] Cardiovascular funct ion eval w/tilt table w/mntr TILT TABLE EVALUATION Cardiology Routine POTS (postural orthostatic tachycardia syndrome) Ordered: 03/09/2022 [facility] [employer] Work Phone: Comment on above: Ordered: 03/09/2022 End: 03-05-2024 DXA-AXIAL SKELETON DXA-AXIAL SKELETON Radiology Routine Steroid-induced osteoporosis 1 Occurrences starting 02/04/2023 until 03/05/2024 [facility] [employer] Work Phone: Comment on above: 1 Occurrences starti ng 02/04/2023 until 03/05/2024 End: 03-05-2024 DXA-FOREARM SKELETON DXA-FOREARM SKELETON Radiology Routine Steroid-induced osteoporosis 1 Occurrences starting 02/04/2023 until 03/05/2024 [facility] [employer] Work Phone: Comment on above: 1 Occurrences starti ng 02/04/2023 until 03/05/2024 ECG 12 Lead ECG 12 Lead ECG Routine Irregular heart rate 06/09/2023 8:28 AM EST [facility] Work Phone: End: 03-09-2023 HOME SLEEP APNEA TEST (HSAT) HOME SLEEP APNEA TEST (HSAT) Procedures Routine Somnolence, daytime Snoring 1 Occurrences starting 03/09/2022 until 03/09/2023 [facility] Work Phone: Comment on above: 1 Occurrences starti ng 03/09/2022 until 03/09/2023 Oxygen therapy [[facility] Data Set] Initiate Oxygen Therapy Protocol Respiratory Care Routine Daily until discontinued starting 10/07/2020 [facility] Work Phone: Comment on above: Daily until disconti nued starting 10/07/2020 End: 03-04-2023 Polysomnogram POLYSOMNOGRAM (PSG) Procedures Routine Somnolence, daytime Snoring 1 Occurrences starting 03/04/2022 until 03/04/2023 [facility] Work Phone: Comment on above: 1 Occurrences starti ng 03/04/2022 until 03/04/2023 [facility] Immunizations Immunization Date Immunization Notes Care Provider Reginaldo mcginnis 02-23-2023 COVID-19 vaccine, ag e 12+ yr, 2022- season (PFIZER-BIONTECH) Lynne Ni MD Work Phone: [facility] Payers Date Payer Category Payer Self-pay 2017 Unknown [employer] [id number] 2017-Present [address] [place] [address] [id number] 2009 Medicaid [employer] [id number] 2009-Present [phone] [address] [place] [address] Medicaid [id number] 2009 Medicaid [id number] 1980 Unknown [id number] 1980 Unknown [id number] 1980 Unknown [id number] [id number] 1980 Unknown [id number] [id number] 1980 Unknown [id number] [id number] 1980 Unknown [id number] [id number] 1980 Unknown [id number] [id number] 1980 Unknown [id number] [id number] 1980 Unknown [id number] [id number] 1980 Unknown [id number] [id number] 1980 Unknown [id number] [id number] 1980 Unknown [id number] [id number] 1980 Unknown [id number] [id number] 1980 Unknown [id number] [id number] 1980 Unknown [id number] [id number] 1980 Unknown [id number] [id number] 1980 Unknown [id number] [id number] 1959 Unknown [id number] 1959 Unknown [id number] Unknown [id number] Social History Date Type Detail Facility Start: 10-07-2020 End: 04-20-2023 Tobacco smoking status NHIS Current every day smoker [facility] Start: 10-07-2020 End: 04-20-2023 Tobacco use and exposure Never used [employer] Start: 10-07-2020 End: 07-06-2023 Alcohol intake Lifetime non-drinker (finding) [employer] Phone: Start: 10-07-2020 History SDOH Alcohol Frequency 1 [employer] Phone: Start: 1980 Sex Assigned At Not on file [facility] [employer] Phone: Start: 02-22-2022 End: 06-09-2023 Exposure to SARS-CoV-2 (event) Not sure [employer] History of tobacco use Cigarette Smoker [facility] Start: 05-31-2014 End: 07-06-2023 Cigarettes smoked current (pack per day) - Reported 1 [facility] Start: 10-24-2021 End: 04-26-2023 Alcohol intake Current non-drinker of alcohol (finding) [facility] Start: 10-14-2021 End: 10-24-2021 Exposure to SARS-CoV-2 (event) Unable to assess [facility] Start: 10-22-2022 End: 07-06-2023 Sex Assigned At [facility] Adult Depression Screening Assessment 1 [facility] Start: 10-19-2022 Tobacco Comment Current smoker , everyday, 11-20 cigarettes/day [facility] Start: 05-31-2023 Alcohol Comment Caffeine intak e : > 4 cups per day [facility] Clinical Notes 05-31-2014 to 07-06-2023 Juan Luis Richardson MD - 07/06/2023 2:30 PM ESTCarol Surya Britton APRN-[facility] - 06/09/2023 8:30 AM ESTPatient Christie Mcclendon MD - 05/26/2023 5:00 PM Christie Yi MD - 04/26/2023 4:15 PM EST Note Date & Type Note Facility 07-06-2023 History of Present illness Narrative Subjective Jones Haley is a 42 y.o. female. HPI Patient is here for a follow up. She states that she was put in Doxycycline prior for 7-10 days and was getting increased head pressure. She was getting headaches and abdominal pressure. Headaches feel like fevers where her lips go numb. Pulls up on her neck then she gets relief with her headache. She did have x-rays and MRI. She has been going to chiropractor, has done traction and exercises. Legs are very heavy and hard to ambulate and lift legs. She states it feels like she has exercised land like her legs are in cement. States that she will get heart palpitations and feels like her heart is racing even when she is not exerting herself. She has been put on beta judie. She does wear a back brace. When she moves a certain way her blood pressure and heart rate will fluctuate. Admits to low back pain and heavy pressure in abdominal area. Feels like someone is sitting on her. No other concerns. Wt 263 lb BMI 41.81 kg/m Allergies Allergen Reactions Codeine Other Reaction(s): Other: See Comments, Trouble breathing ... Make her feel Jittery. OTHERWISE, NO SOB/WHEEZING, and NO DYSPHAGIA, NO URTICARIA, NO ANGIOEDEMA Doxycycline Unknown Sulfamethoxazole Other Reaction(s): gi Trimethoprim Other Reaction(s): gi Clindamycin Other Reaction(s): Unknown Patient states it was a long time ago and she did not have a severe reaction. She does not believe she is allergic, she just thinks she just experienced side effects. Latex Rash Other Reaction(s): Rash Patient states it was a long time ago and she did not have a severe reaction. She does not believe she is allergic, she just thinks she just experienced side effects. Sulfamethoxazole-Trimethoprim Swelling Other Reaction(s): Other, sick Patient states it was a long time ago and she did not have a severe reaction. She does not believe she is allergic, she just thinks she just experienced side effects. Patient states it was a long time ago and she did not have a severe reaction. She does not believe she is allergic, she just thinks she just experienced side effects. Current Outpatient Medications: acetaminophen (Tylenol) 325 MG tablet, every 4 (four) hours., Disp: , Rfl: ALPRAZolam (Xanax) 0.25 MG tablet, TAKE 1 TABLET BY MOUTH EVERY DAY NEEDED FOR 30 DAYS, Disp: , Rfl: aspirin 81 MG chewable tablet, Chew 81 mg in the morning., Disp: , Rfl: azaTHIOprine (Imuran) 50 MG tablet, Take 150 mg by mouth in the morning., Disp: , Rfl: belimumab (Benlysta) 200 MG/ML injection, Inject 200 mg under the skin 1 (one) time per week, Disp: , Rfl: cephalexin (Keflex) 500 MG capsule, Take 1 tablet twice a day x 7 days, Disp: 14 capsule, Rfl: 0 clindamycin (Clindagel) 1 % gel, 1 (one) time each day at the same time., Disp: , Rfl: Clobetasol Propionate 0.05 % shampoo, 1 application to the scalp in the shower topically 3-4 times a week, Disp: 236 mL, Rfl: 11 [employer] Magnesium Citrate oral solution, TAKE HALF OF THE BOTTLE WITH 8 OZ OF WATER, TAKE THE OTHER HALF AFTER 1 HOUR WITH 8 OZ OF WATER, Disp: , Rfl: ergocalciferol (Vitamin D2) 1.25 MG (83909 UT) capsule, Take 50,000 Units by mouth 1 (one) time per week, Disp: , Rfl: fludrocortisone (Florinef) 0.1 MG tablet, Take 1 tablet (0.1 mg) by mouth at bedtime, Disp: 30 tablet, Rfl: 11 fluocinonide (Lidex) 0.05 % external solution, apply to affected area on scalp topically qd-bid prn for 30 day(s), Disp: 120 mL, Rfl: 11 folic acid (Folvite) 1 MG tablet, Take 1 mg by mouth in the morning., Disp: , Rfl: hydroxychloroquine (Plaquenil) 400 MG tablet, 1 (one) time each day at the same time., Disp: , Rfl: hyoscyamine (Anaspaz,Levsin) 0.125 MG tablet, TAKE 1 TABLET BY MOUTH EVERY 6 HOURS NEEDED FOR ABDOMINAL PAIN, Disp: , Rfl: ibuprofen 200 MG tablet, every 8 (eight) hours., Disp: , Rfl: metoprolol tartrate (Lopressor) 50 MG tablet, Take 100 mg by mouth in the morning and 100 mg before bedtime., Disp: , Rfl: montelukast (Singulair) 10 MG tablet, Take 1 tablet (10 mg) by mouth at bedtime, Disp: 30 tablet, Rfl: 11 nystatin (Mycostatin) cream, Apply to left armpit BID until clear, Disp: 15 g, Rfl: 0 ondansetron ODT (Zofran-ODT) 4 MG disintegrating tablet, DISSOLVE 1 TABLET IN MOUTH EVERY 6 HOURS NEEDED FOR NAUSEA AND VOMITING, Disp: , Rfl: phentermine (Adipex-P) 37.5 MG tablet, Take 37.5 mg by mouth in the morning. Take before meals., Disp: , Rfl: pravastatin (Pravachol) 20 MG tablet, TAKE 1 TABLET BY MOUTH EVERY DAY FOR 30 DAYS, Disp: , Rfl: predniSONE 10 MG (21) tablet therapy pack, Take 10 mg by mouth 1 (one) time each day at the same time, Disp: , Rfl: pregabalin (Lyrica) 75 MG capsule, TAKE 1 CAPSULE BY MOUTH THREE TIMES A DAY for 30, Disp: , Rfl: thiamine (Vitamin B-1) 100 MG tablet, Take 1 tablet (100 mg) by mouth in the morning., Disp: 30 tablet, Rfl: 11 topiramate (Topamax) 25 MG tablet, Take 25 mg by mouth in the morning and 25 mg before bedtime., Disp: , Rfl: Triamcinolone Acetonide 0.025 % lotion, 1 application., Disp: , Rfl: Past Medical History: Diagnosis Date Chronic laryngopharyngitis COVID-19 vaccine administered x 2 ([employer]) History of removal of cyst 2013 tailbone x2 Hx of abnormal cervical Pap smear Hyperlipidemia (CMS/HCC) Insulin resistance Laryngopharyngeal reflux disease Oral lesion Oral thrush Tachycardia Past Surgical History: Procedure Laterality Date CYST REMOVAL DILATION AND CURETTAGE OTHER SURGICAL HISTORY cervical cryo VAGINAL DELIVERY Family History Problem Relation Name Age of Onset Crohn's disease Mother Thyroid disease Mother Stomach cancer Father No Known Problems Sister 1 No Known Problems Daughter Lung disease Son Other (lung issue) Child 1 son with lung issue, 3 daughters reports that she has been smoking cigarettes. She has been smoking an average of 1 pack per day. She has never used smokeless tobacco. She reports that she does not drink alcohol. Review of Systems Constitutional: Positive for fatigue. Negative for chills, diaphoresis and fever. HENT: Negative for ear pain, tinnitus and trouble swallowing. Eyes: Negative for photophobia and visual disturbance. Respiratory: Negative for cough and shortness of breath. Cardiovascular: Negative for palpitations and leg swelling. Gastrointestinal: Negative for abdominal pain and nausea. Genitourinary: Negative for difficulty urinating and urgency. Musculoskeletal: Positive for back pain, gait problem, neck pain and neck stiffness. Negative for arthralgias and myalgias. Neurological: Positive for weakness, numbness and headaches. Negative for tremors and light-headedness. Psychiatric/Behavioral: Negative for agitation, confusion and suicidal ideas. Objective Neurological Exam Mental Status Awake, alert and oriented to person, place and time. Oriented to person, place and time. Recent and remote memory are intact. Speech is normal. Language is fluent with no aphasia. Attention and concentration are normal. Cranial Nerves CN II: Visual acuity is normal. Visual lomeli full to confrontation. CN III, IV, : Extraocular movements intact bilaterally. Normal lids and orbits bilaterally. Pupils equal round and reactive to light bilaterally. CN V: Facial sensation is normal. CN VII: Full and symmetric facial movement. CN VIII: Hearing is normal. CN XII: Tongue midline without atrophy or fasciculations. Motor Normal muscle bulk throughout. Normal muscle tone. Right Left Wrist flexion 5 5 Wrist extension 5 5 Right Left Deltoid 5 5 Biceps 5 5 Triceps 5 5 Wrist flexor 5 5 Wrist extensor 5 5 Glutei 5 5 Iliopsoas 5 5 Quadriceps 5 5 Gastrocnemius 5 5 Anterior tibialis 5 5 Posterior tibialis 5 5 Sensory Light touch is normal in upper and lower extremities. Pinprick is normal in upper and lower extremities. Vibration is normal in upper and lower extremities. Reflexes Right Left Brachioradialis 2+ 2+ Biceps 2+ 2+ Patellar 2+ 2+ Achilles 2+ 2+ Right Plantar: downgoing Left Plantar: downgoing Right pathological reflexes: Stu's absent. Ankle clonus absent. Left pathological reflexes: Stu's absent. Ankle clonus absent. Coordination Dchmsp-cn-upao, rapid alternating movements and onra-kv-cnoe normal bilaterally without dysmetria. Gait Normal casual, toe, heel and tandem gait. Romberg is absent. Assessment/Plan Diagnoses and all orders for this visit: Autoimmune disease ([facility]) - Protein electrophoresis, serum; Future - Protein electrophoresis, urine; Future Autonomic dysfunction - Protein electrophoresis, serum; Future - Protein electrophoresis, urine; Future Lumbosacral radiculopathy - pregabalin (Lyrica) 100 MG capsule; TAKE 1 CAPSULE BY MOUTH THREE TIMES A DAY for 30 Bilateral leg weakness sensory disturbance in the distal lower extremities manifested predominantly as numbness and paresthesia in his bilateral feet which have been progressive over the past 8 months, Possible etiologies would include a generalized process affecting large fibers such as peripheral neuropathy, lumbar radiculopathy, or lumbosacral plexopathy. I cannot exclude a small fiber neuropathy contributing to predominantly sensory symptoms in the lower extremities, I cannot exclude it medical condition or metabolic process contributing to peripheral nerve dysfunction including polyneuropathy. I will place order for blood work UPEP & SPEP. Increase Lyrica 100 mg TID. She is on prednisone 10 mg once daily. Increase prednisone 10 mg BID for 10 days. documented in this encounter [facility] 06-15-2023 Note [facility] 06-10-2023 Note [facility] 06-09-2023 History of Present illness Narrative Jones Haley is a 42 y.o. female that presents to the office today for new patient evaluation as self referral for palpitations and elevated heart rates. She has a PMH of HTN, HLD, tachycardia, anemia, JOSE RAFAEL with CPAP compliance, lupus, autonomic dysfunction, arthritis, chronic back pain. She has undergone cardiac workup in the past in [place] as noted below. She also states that she follows with Neurology for possible POTS syndrome. Admits to daily tobacco use, 1 pack of cigarettes per day. Denies vaping, ETOH, recreational drugs. Admits to drinking approximately 1 pot of coffee per day. Denies daily exercise. 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 Family history negative [...] , Rfl: ergocalciferol (Vitamin D-2) 1.25 MG (33819 UT) capsule, Take 1 capsule (50,000 Units) [...] Anemia, unspecified Anxiety Autonomic dysfunction Depression, recurrent ([facility]) Discoid lupus erythematosus Chronic bilateral low back pain with bilateral sciatica Hyperlipidemia Obesity, Class III, BMI 40-49.9 (morbid obesity) ([facility]) Obstructive sleep apnea syndrome Arthritis Tachycardia Vitamin [...] prepare this document. documented in this encounter [facility] Work Phone: 06-01-2023 Note [facility] 05-26-2023 Note [facility] 05-26-2023 Instructions Christie Phan MD - 05/26/2023 5:43 PM EST Images from the original note were not included. https://[place]/tofu-bolognese/ https://nutritionstudies.org/how- yf-ypqiocshy-cbcfalps-to-adopt-a- bqsxu-dpqs-dzdbg-based-lifestyle/ https://www.Whimseybox /blog/plantbasedkids https://NetMinder/randee we-ytpdc-troy-for-kids/ https://[employer]Authority Technologies/how-to- mtvrrzxaww-bdko-phmj-hx-j-lkjdz-b ased-diet/ WHAT TO EAT? Breakfast: Overnight Oats Base ingredients: 1/3 cup rolled oats, 1/3 cup plain almond milk, 1tsp kyle seeds. Optional add-ins: cinnamon, flax seeds, honey or maple syrup, nut butter, chopped nuts. Toppings: Any fresh fruit chopped. Mix together and place in refrigerator. Can make 5 at a time for the whole week. Homemade fresh oatmeal. Can also make in the crockpot. Indonesian muffin/almond butter topped with fresh berries Indonesian muffin, cooked egg/egg white, tomato, thin slice anguillan cheese Fresh berries, hard boiled egg, whole wheat toast Plain yogurt topped with berries, unsalted nuts, drizzle of honey Whole grain toast/Indonesian muffin topped with mashed avocado and tomatoes Lunch: Dinner leftovers packed in Tupperware, side of fruit Salad mixture topped with a protein (chick breast/tuna/hard boiled egg/beans), dressing and side of fruit Dinner - Refer to plate conservation planner pictures to help select foods and portion ratios of protein, vegetables/starches. Keep it simple and rotate your favorite meals. Sheet nix meals Soups Grilled protein/vegetables/side of starch (plate conservation planner picture) Stir can with protein, mixed vegetables, and riced cauliflower or portion controlled whole grain rice. Make your own bowls - Botswanan/Ecuadorean/ theme [place] with Zoodles (spiralized vegetable noodles). Roasted vegetable wraps Alter traditional recipes to reflect HIGH QUALITY ingredients in the right QUANTITIES. Snacks - portion controlled: Raw veggies (can have with hummus, mashed avocado, salsa). Unsalted nuts Fruit (1 serving). (optional side of peanut butter) Air pop popcorn [place] and low fat anguillan cheese rolled up String cheese Protein balls (mix rolled oats, nut butter, flax seeds, dash almond milk). Beverages: Water Coffee, Hot tea Unsweetened ice tea EATING OUT: Research menu online, include nutritional information. Make your order decision before getting to restaurant. Stick to recommended portions (plate conservation planner picture). Ask for substitutions or modifications. [...] baked potato, sprouted grain bread, chick peas https://www.Jumping Nuts.CashStar/articl e/4558202/lwyyauswgdnwp-jscb-flzs -for-beginners/ https://www.Jumping Nuts.com/catego ry/4274/ntvymzgjsjnwo-ybon-fwcagm / https://www.Jumping Nuts.com/catego ry/4300/egmofumamgont-llcu-dihg-p lans/ My current favorite cookbooks are documented in this encounter [facility] 05-26-2023 History of Present illness Narrative Images from the original note were not included. [facility] Follow-Up Appointment [...] refer to nutrition to work towards a [facility] diet Plan Diagnoses and all orders for [...] the date of the service which included neyi-ot-thec patient care, completing clinical documentation, performing a medically appropriate examination, counseling and educating the patient/family/caregiver, and ordering medications, tests, or procedures. Christie Phan MD, MA, [facility] Lifestyle Medicine Specialist documented in this encounter [facility] 05-19-2023 Note [facility] 04-26-2023 Note [facility] 04-26-2023 Miscellaneous Notes Medication pending with new pharmacy information. documented in this encounter [facility] 04-26-2023 History of Present illness Narrative Images from the original note were not included. [facility] Virtual Follow-Up [...] the date of the service which included rzfr-ds-sewd patient care, completing clinical documentation, performing a medically appropriate examination, counseling and educating the patient/family/caregiver, and ordering medications, tests, or procedures. I have communicated my name and active licensure. The patient's identity and physical location were verified at the time of this visit. Either the patient or their legal airport representative has been informed of the risks and benefits of -- and alternatives to -- treatment through a remote evaluation and consents to proceed with the evaluation remotely. Christie Phan MD, MA, [facility] Lifestyle Medicine Specialist documented in this encounter [facility] 04-26-2023 Note [facility] 04-26-2023 Nurse Note Spoke to Jones Haley, confirmed patient is registered on [employer] and is prepared for their appointment. Confirmed the patient has updated medications, allergies, and questionnaires via [employer]. Informed patient if there is an issue with the connection, provider will send the patient a secure link. If provider is running late, patient should remain connected to the visit. Patient verbalized understanding. documented in this encounter [facility] 04-22-2023 Miscellaneous Notes Pt called for Iron results; possible need for transfusion. Pt aware no need for iron infusion at this time. Enma Hamm RN documented in this encounter [facility] 04-16-2023 Note [facility] 04-16-2023 Note HNO ID: [id number] Author: Kenzie Shannon Service: ? Author Type: ? Type: Progress Notes Filed: 04/16/2023 11:10 AM Note Text: Patient Identification confirmed: yes. Injection given and documented on JUL per provider order. Kenzie Shannon [facility] 04-16-2023 History of Present illness Narrative Patient Identification confirmed: yes. Injection given and documented on MAR per provider order. Kenzie Shannon documented in this encounter [facility] 04-01-2023 Note [facility] 03-19-2023 Note HNO ID: [id number] Author: Kenzie Shannon Service: ? Author Type: ? Type: Progress Notes Filed: 03/19/2023 11:22 AM Note Text: Patient Identification confirmed: yes. Injection given and documented on MAR per provider order. Kenzie Shannon [facility] 03-19-2023 History of Present illness Narrative Patient Identification confirmed: yes. Injection given and documented on MAR per provider order. Kenzie Shannon documented in this encounter [facility] 03-16-2023 Note [facility] 03-16-2023 History of Present illness Narrative CMN RECEIVED BY [employer] [facility] VIA FAX, COMPLETED, AND PLACED IN PROVIDER MAILBOX FOR SIGNATURE On March 16, 2023 By Marija Ziegler Cut Off Machine Helper II. [employer] SENDING CMN: JOSH SIGNED AND DATED CMN, FAXED TO [facility] [place] [place] & CONFIRMATION PAGE RECEIVED: 03.24.23 documented in this encounter [facility] 03-11-2023 Note [facility] 03-11-2023 History of Present illness Narrative AMBULATORY PATIENT EDUCATION TOPIC: SURVIVAL [...] In Department: RHEUMATOLOGY documented in this encounter [facility] 03-10-2023 Miscellaneous Notes Spoke with patient. We stopped her trulicity because of side effects. She only took the cymbalta for a week. She will restart and we will see how she is doing in 2 months. Have also ordered insulin labs to check for insulin resistance. documented in this encounter [facility] 03-01-2023 Miscellaneous Notes For chart: Eye exam 02/26/23 no ocular complication related to medication. Received eye exam from [facility] Placed on your desk for review. documented in this encounter [facility] 02-19-2023 Note [facility] 02-19-2023 Nurse Note Patient Identification confirmed: yes. Injection given and documented on JUL per provider order. Radha Schofield MA documented in this encounter [facility] 02-19-2023 Instructions Jose Najera MD - 02/19/2023 11:40 AM EDT B12 shot today and every 4 weeks. Continue Folic acid. Follow up in 8 Weeks - labs 1 week before. documented in this encounter [facility] 02-19-2023 History of Present illness Narrative Images from the original note were not included. AMBULATORY TELEPHONE VISIT Jones Haley has consented to this telephone encounter. Persons Present: Patient and myself Chief Complaint/Reason: Anemia; To review recent blood work. HPI: Total Time Spent: 21 minutes Wilmer Driver APRN.DESIGN PRINTING MACHINE SET UP OPERATOR NAME: Jones Haley [facility] NO.: [id number] DATE OF SERVICE: February 19, 2023 ([place]) [...] ongoing and generalized malaise with elevated IgM. 2021 lymph node biopsy from neck negative for [...] She follows with multiple doctors including and joint setter, burr mill operator, editor city and PCP. She has been told they [...] which included preparing to see the patient, dfnh-df-dnsi patient care, completing clinical documentation, performing a medically appropriate examination, counseling and educating the patient/family/caregiver, ordering medications, tests, or procedures, and independently interpreting results (not separately reported). Jose Najera MD, CPE Hematology [facility] Oncology Services Provided at: [place], [place] CC: Madelaine Ferris MD [address] [facility] [address] documented in this encounter [facility] 02-16-2023 Miscellaneous Notes Notify patient medication [...] Department RAYRAY INJECTION TEACHING 03/11/2023 7:30 AM [facility] VIDEO SPEC EST 08/12/2023 9:00 AM [facility] Last Ophthalmology Check for Plaquenil (Hydroxychloroquine) Last [...] Vitamin D deficiency documented in this encounter [facility] 02-08-2023 Miscellaneous Notes Spoke with patient Will get labs done when she does labs in Dec for Dre/Onc Mailed orders for DXA to pt so she can go to [facility] Pre cert Benlyst Scheduled Teaching visit for 4 weeks out to give time for ins and to receive medication. Will edison if not auth or received Scheduled [address] Ni in 6 mo Mirela Carlos February 08, 2023 11:15 AM Please call and schedule nonfasting labs 04/2023 Due for bone mineral density (1st time) patient requests order for Javid Please schedule follow up office visit for [...] Lynne Ni MD documented in this encounter [facility] 02-04-2023 Note [facility] 02-04-2023 Note [facility] 02-04-2023 Note [facility] 02-04-2023 Note [facility] 02-04-2023 Note [facility] 02-04-2023 History of Present illness Narrative [facility] received prescription(s) for Benlysta from Dr. Ni. Benefits investigation was conducted, indicating that a prior authorization is required by patients plan with [facility]. Encounter will be updated once prior authorization has been submitted by [facility]. Carlene Rendon CPhT [facility], Inflammatory P: [phone] F: [phone] documented in this encounter [facility] 02-04-2023 History of Present illness Narrative THIS IS A AMBULATORY VIRTUAL [...] visit. Either the patient or their legal airport representative has been informed of the risks [...] wrists worse in last 2weeks. Reports pain /10. Has 10min minimal AM stiffness. Fevers off and on. COVID vaccine 09/28/20, 10/19/20, 05/26/21, 02/08/22. Skin changes better with prednisone/currently taking 10mg daily. In ED for rib cage pain, negative workup, gave mobic. Feels safe at home. Has enough food, supplies and medications. Overall uncomfortable but happy with rheum care. No falls/fx/trauma/illness/oral sores//jaw pain/dysphagia/epistaxis/hemoptys is since last visit. No adverse effects with [...] neurology/on metoprolol for POTs, avoid aggravating triggers, correction pain recommendations per primary care provider/pain clinic/patient [...] in flares, better with steroids. Reports pain /10. minimal AM stiffness. COVID vaccine 09/28/20, , 05/26/21, 02/08/22. Feels safe at home. Has enough food, supplies and medications. Overall mildly uncomfortable but happy with rheum care. No falls/fx/trauma/illness/oral sores/rash/hairloss/jaw pain/dysphagia/epistaxis/hemoptys is since last visit. No adverse effects with [...] Due for eye exam. Labs sent to [place]/completed in 06/2021 (no results faxed to office, but patient pulled up results on her phone). Chronic current pain in neck, flank area, mid back, knees, legs, arms, all over pain. Better with lyrica 75mg 3times a day. Reports pain 4-12/31. Couple hrs AM stiffness. COVID vaccine [employer] 09/28/20, 10/19/20, 05/26/21. Feels safe at home. Has enough food, supplies and medications. Overall uncomfortable but happy with rheum care. No falls/fx/trauma/illness/oral sores/rash/hairloss/jaw pain/dysphagia/epistaxis/hemoptys is since last visit. No adverse effects with [...] dexamethasone Reports pain -11/30 No falls/fx/trauma/illness/oral sores/rash/hairloss/jaw pain/dysphagia/epistaxis/hemoptys is. No adverse effects with meds. No other complaints. Patient denies fever, chills, cp, dyspnea, nausea, vomiting, night sweats, scalp tenderness, visual changes, hernandez, bowel/bladder changes, weight changes or other complaints. COMPLETE REVIEW OF SYSTEMS: RHEUM. ROS: Joint pain: yes axilla, low back, legs, feet, flank pain Joint swelling: no Am stiffness: yes all day Low back pain: yes H/o precedent/frequent infection(s): as above Enthesopathy/Gillian's/heel/plant ar tenderness: hands random painful/tingling Skin thickening, psoriasis, photosensitivity, purpura: as above Alpecia, patchy: yes Eye inflammation: glasses GI problems-diarrhea/bleeding/IBD/Gl uten intolerence/Dysphagia: as above Fatigue: yes, sleeps 10 [...] COVID-19 original vaccine, age 12+ yr, monovalent (opinions.h - PURPLE TOP) 09/28/2020 10/19/2020 05/26/2021 COVID-19 vaccine, age 12+ yr, bivalent ([employer]) 02/08/2022 Pneumovax no Flu shot no Tetanus [...] (33);NL cbc, cmp, negative hla b27; Outside [place] 06/2021 low vitamin D 16, vitamin b12-307;high [...] NECK: no visible thyromegaly or LAD. 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 RECOMMENDATION/PLAN: [facility] [employer] on 02/04/23 DXA-AXIAL SKELETON DXA-FOREARM SKELETON Reviewed [...] (200mg) daily with a meal Please see special needs caregiver every 6-12months while on Hydroxychloroquine. Start 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 [...] touching your toes, sit-ups, using row machine director long term care pain recommendations per primary care provider/pain clinic [...] video & audio (virtual) or phone or hnmw-ar-fmqn patient care, completing clinical documentation, obtaining and/or [...] cc Gay Enciso CNP;Dr.Douglas Sai Ferris MD [facility] AMBULATORY VISIT INTAKE QUESTIONNAIRE Question 02/02/2023 10:32 [...] Medication Reposition Cold Heat Positioning Comments [facility] MYCHART ADDITIONAL DEMO Question 02/02/2023 10:32 PM EDT - Filed by Patient Is this visit related to an accident, other than Workers' Compensation? No Is this visit related to Workers' Compensation? No Do you need an assistant art director? No [facility] MYCHART ZOOM MESSAGE Question 02/02/2023 10:32 PM [...] SLAQ Score (range: 0 - 47) 24 [facility] PROVIDER UNDERSTANDING CURRENT HEALTH RHEUMATOLOGY Question 02/02/2023 10:38 PM EDT - Filed by Patient These questions will help my provider understand my health Agree [facility] DOCUMENT/IMAGE UPLOAD Question 02/02/2023 10:38 PM EDT [...] of Right Forearm or Lower Left Leg. [facility] PROMIS 10 ADULT SHORT FORM V1.0 GLOBAL [...] or = 5) documented in this encounter [facility] 02-04-2023 Instructions Lynne Ni MD - [...] (200mg) daily with a meal Please see special needs caregiver every 6-12months while on Hydroxychloroquine. 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 daily [...] touching your toes, sit-ups, using row machine director long term care pain recommendations per primary care provider/pain clinic Thank you. BONE MINERAL DENSITY PATIENT INSTRUCTIONS ======== Bone mineral density testing measures the amount [...] usual activities immediately. documented in this encounter [facility] 01-26-2023 Miscellaneous Notes patient has viewed the mySociety message per [employer] Please Call patient if [employer]ide note not read to review results/released to My Chart if tests completed at [facility]: mildly high normal wbc- will monitor. Mildly [...] Lynne Ni MD documented in this encounter [facility] 01-22-2023 Nurse Note Patient Identification confirmed: yes. Injection given and documented on JUL per provider order. Radha Schofield MA documented in this encounter [facility] 01-12-2023 Miscellaneous Notes Patient needs appointment before I can refill. Patient's request for medication is as follows: Requested Prescriptions Pending Prescriptions Disp Refills dulaglutide (TRULICITY) 1.5 mg/0.5 mL pen injector 2 mL 0 Sig: Inject 1.5 mg subcutaneously one time a week. Please approve the above prescription(s) to electronically send to [facility] pharmacy. Milagro Mendiola MA documented in this encounter [facility] 01-01-2023 Note [facility] 01-01-2023 History of Present illness Narrative VIRTUAL VISIT PROGRESS NOTE This is a virtual visit using [employer] video visit. It required patient-provider interaction for the medical decision making as documented below. I have communicated my name and active licensure. The patient's identity and physical location were verified at the time of this visit. 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 Misty eNlson MD documented in this encounter [facility] 12-18-2022 Note [facility] 12-18-2022 Miscellaneous Notes Spoke with patient this morning, 12/18/2022. Wilmer Driver APRN.DESIGN PRINTING MACHINE SET UP OPERATOR Pt called tobacco conditioner service last evening stating she was suppose to have a phone call with Wilmer at 330 and never received a call. Pt is still waiting (536 pm 12/17/22). Please advise Lidia Argueta RN documented in this encounter [facility] 12-18-2022 History of Present illness Narrative Images from the original note [...] Total Time Spent: 21 minutes Wilmer Driver APRN.DESIGN PRINTING MACHINE SET UP OPERATOR NAME: Jones Haley CLINIC NO.: [id number] DATE OF SERVICE: October 22, 2022 (Marquis) [...] She follows with multiple doctors including and joint setter, burr mill operator, editor city and PCP. She has been told they [...] ECOG PERFORMANCE STATUS: 0 PHYSICAL EXAMINATION: Vitals: LMP 02/26/2022 There is no height or weight [...] which included preparing to see the patient, byyf-he-ptme patient care, completing clinical documentation, performing a medically appropriate examination, counseling and educating the patient/family/caregiver, ordering medications, tests, or procedures, and independently interpreting results (not separately reported). Jose Najera MD, CPE Hematology and Oncology Services Provided at: [place], [place] CC: Madelaine Ferris MD [address] [facility] [address] documented in this encounter [facility] 12-16-2022 Miscellaneous Notes Pt notified and verbalizes understanding. Clerical: Please change tomorrow's appointment to a phone visit at the end of Wilmer's day. Preferred number is [phone]. In addition, pt will be in next 12/25/22 @ 1130 for her B12 shot. Please add her to the MA schedule. Thanks! Pamella Bettencourt RN That would be okay. Have her added at the end of the day. Thanks, Wilmer Driver APRN.DESIGN PRINTING MACHINE SET UP OPERATOR Pt is scheduled for RV w/ Wilmer & B12 tomorrow. She would like to make this a telephone appointment instead and come back next week for B12. Pt had her labs drawn last week. Wilmer: Any objections to meeting w/ pt over the phone tomorrow or would you prefer we switch her to Mason's schedule? Pamella Bettencourt RN documented in this encounter [facility] 12-13-2022 Miscellaneous Notes No clinical utility [...] Enma Hamm RN documented in this encounter [facility] 11-24-2022 Miscellaneous Notes Please call patient [...] Lynne Ni MD documented in this encounter [facility] 11-19-2022 Nurse Note Patient Identification confirmed: yes. Injection given and documented on JUL per provider order. Margret Cuenca documented in this encounter [facility] 10-29-2022 Note [facility] 10-22-2022 Note [facility] 10-22-2022 Nurse Note Patient Identification confirmed: yes. Injection given and documented on JUL per provider order. Stacy Gutiérrez Ma documented in this encounter [facility] 10-22-2022 Instructions Jose Najera MD - 10/22/2022 11:43 AM EDT B12 Shot today and every 4 weeks. Continue Folic acid. Follow up in 8 Weeks - labs 1 week before. documented in this encounter [facility] 10-22-2022 History of Present illness Narrative Images from the original note were not included. NAME: Jones Haley CLINIC NO.: [id number] DATE OF SERVICE: October 22, 2022 ([place]) [...] She follows with multiple doctors including and joint setter, burr mill operator, editor city and PCP. She has been told they [...] which included preparing to see the patient, wcjr-re-zhzj patient care, completing clinical documentation, performing a medically appropriate examination, counseling and educating the patient/family/caregiver, ordering medications, tests, or procedures, and independently interpreting results (not separately reported). Jose Najera MD, CPE Hematology and Oncology Services Provided at: [place], [place] CC: Madelaine Ferris MD [address] [facility] [address] documented in this encounter [facility] 09-24-2022 Nurse Note Patient Identification confirmed: yes. Injection given and documented on JUL per provider order. Stacy Gutiérrez Ma documented in this encounter [facility] 09-11-2022 Note HNO ID: [id number] Author: Joselito Joshi Service: ? Author Type: ? Type: Progress Notes Filed: 09/11/2022 9:10 AM Note Text: Called patient and patient stated she will call back and schedule. Joselito Joshi [facility] 09-08-2022 Miscellaneous Notes Pharmacy-Reviewed Medication History Patient Name:Jim Haley : 1980 Patient Contact Attempt: First attempt Adherence Packing Program Accepted? No, patient does not wish to participate. Patient is not eligible for adherence packaging because PCP is not within [facility]. Patient wishes to continue at [facility] since medication bottles will look the same and then she can pick-up the medications when she needs them. Stacy Hernandez September 08, 2022 2:28 PM [facility] [phone] documented in this encounter [facility] 09-07-2022 Note [facility] 09-07-2022 History of Present illness Narrative Images from the original note were not included. [facility] Virtual Follow-Up [...] which included preparing to see the patient, muhf-wy-nacd patient care, completing clinical documentation, performing a medically appropriate examination, counseling and educating the patient/family/caregiver, ordering medications, tests, or procedures, and communicating with other HCPs (not separately reported). I have communicated my name and active licensure. The patient's identity and physical location were verified at the time of this visit. Either the patient or their legal airport representative has been informed of the risks and benefits of -- and alternatives to -- treatment through a remote evaluation and consents to proceed with the evaluation remotely. Christie Phan MD, MA, [facility] Lifestyle Medicine Specialist documented in this encounter [facility] 09-07-2022 Nurse Note Called pt to do intake for video visit pt unavailable lft vm msg sent my chart. Milagro Mendiola MA documented in this encounter [facility] 08-31-2022 Miscellaneous Notes called [facility] pharmacy - pharmacy had 1 refill remaining no action needed from our office documented in this encounter [facility] 08-27-2022 Note [facility] 08-27-2022 Nurse Note Patient Identification confirmed: yes. Injection given and documented on JUL per provider order. Stacy Gutiérrez Ma documented in this encounter [facility] 08-27-2022 History of Present illness Narrative Images from the original note were not included. NAME: Jones Haley [facility] NO.: [id number] DATE OF SERVICE: August 27, 2022 (Bob) [...] She follows with multiple doctors including and joint setter, burr mill operator, editor city and PCP. She has been told they [...] Father stomach other (Crohn's [Other]) Mother Wilmer Driver APRN.TRUE Hematology and Oncology Services Provided at: [place], [place] CC: Madelaine Ferris MD [address] [facility] [address] I spent a total of 30 minutes on the date of the service which included preparing to see the patient, lkuy-jw-asig patient care, completing clinical documentation, obtaining and/or reviewing separately obtained history, performing a medically appropriate examination, counseling and educating the patient/family/caregiver, ordering medications, tests, or procedures, independently interpreting results (not separately reported), and communicating results to the patient/family/caregiver. documented in this encounter [facility] 08-19-2022 Miscellaneous Notes -noted MyChart message read by patient 08/19/22 . Last read by Jones Haley at 3:33 PM on 08/19/2022 Please Call patient if MyChart note not read to review results/released to My Chart if tests completed at F: Improved/ mildly high normal inflammatory test- will monitor. Improved/mildly low vitamin b12- take over the counter 6430-5027 mcg daily. Improved/ normal rest of rheum [...] Lynne Ni MD documented in this encounter [facility] 08-18-2022 Miscellaneous Notes read by patient. Please call patient. Thank [...] Lynne Ni MD documented in this encounter [facility] 08-10-2022 Miscellaneous Notes [facility] requesting refill, patient never started according to the chart and I have not seen her in follow-up. [facility] Pharmacy request for the following refill(s): Requested Prescriptions Pending Prescriptions Disp Refills DULoxetine (CYMBALTA) 20 mg capsule [Pharmacy Med Name: DULOXETINE HCL DR 20 MG CAP] 30 capsule 2 Sig: TAKE 1 CAPSULE BY MOUTH ONCE DAILY Please review and advise. Jami Everett Cma documented in this encounter [facility] 07-27-2022 Instructions Timmy Heck APRN.DESIGN PRINTING MACHINE SET UP OPERATOR - 07/27/2022 9:12 PM EST Images from the original note were not included. Your most recent body mass index (BMI) that we have on record is 40.56 kg/m2. Obstructive sleep apnea (JOSE RAFAEL) worsens with an increase in weight; reduction in weight may improve or resolve your JOSE RAFAEL. If you are not already seeking treatment, there are resources available at the [facility] such as a nutrition consultation or referral to weight management programs at our [facility]. Please let us know if we can assist with a referral. - Continue CPAP at 5-15 cmH2O. - Remember to clean your mask and equipment regularly, as directed. - You should be eligible for new supplies approximately every 3-6 months, depending on your insurance coverage. Contact your [facility] [employer] (DME) company for new supplies. [...] the central scheduling system for the [facility] [place] at [phone]. [facility] now offers direct scheduling for patients to schedule appointments. Virtual visits are also available. If not covered by your insurance, there is a 35% discount. Please contact your insurance to determine coverage. Call the office at [phone], option #5 for questions. documented in this encounter [facility] 07-27-2022 Note [facility] 07-27-2022 History of Present illness Narrative Images from the original note were not included. [facility] Virtual Visit Follow [...] will have a prescription sent to a [employer] company - [employer] who will be calling you in the next 1-2 weeks or so. Please call them directly or us if you do not hear from them in this time frame. - Will request formal mask fitting - You should be eligible for new supplies approximately every 3-6 months, depending on your insurance coverage. - If your mask doesn't fit well, call the DME company before 30 days are up to [...] Tips for good sleep hygiene shared in [facility]. - Follow up in 2 months in the office. Recommend scheduling this appointment now to ensure the best time for you. [facility]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 [address]08[address]2015 History of Past illness Narrative* Problem Noted Date Diagnosed Date Resolved Date Obesity (BMI 30-39.9) 05/31/20142016 documented as of this encounter (statuses as of 01/02/2023) [address]08[address]2015 History of Past illness Narrative* Problem Noted Date Diagnosed Date Resolved Date Obesity (BMI 30-39.9) 05/31/20142016 documented as of this encounter (statuses as of 01/13/2023) [address]08[address]2015 History of Past illness Narrative* Problem Noted Date Diagnosed Date Resolved Date Obesity (BMI 30-39.9) 05/31/20142016 documented as of this encounter (statuses as of 01/22/2023) [address]08[address]2015 History of Past illness Narrative* Problem Noted Date Diagnosed Date Resolved Date Obesity (BMI 30-39.9) 05/31/20142016 documented as of this encounter (statuses as of 01/26/2023) [address]08[address]2015 History of Past illness Narrative* Problem Noted Date Diagnosed Date Resolved Date Obesity (BMI 30-39.9) 05/31/20142016 documented as of this encounter (statuses as of 02/04/2023) [address]08[address]2015 History of Past illness Narrative* Problem Noted Date Diagnosed Date Resolved Date Obesity (BMI 30-39.9) 05/31/20142016 documented as of this encounter (statuses as of 02/04/2023) [address]08[address]2015 History of Past illness Narrative* Problem Noted Date Diagnosed Date Resolved Date Obesity (BMI 30-39.9) 05/31/20142016 documented as of this encounter (statuses as of 02/07/2023) [address]08[address]2015 History of Past illness Narrative* Problem Noted Date Diagnosed Date Resolved Date Obesity (BMI 30-39.9) 05/31/20142016 documented as of this encounter (statuses as of 02/08/2023) [address]08-2015 History of Past illness Narrative* Problem Noted Date Diagnosed Date Resolved Date Obesity (BMI 30-39.9) 05/31/20142016 documented as of this encounter (statuses as of 02/16/2023) [address]08[address]2015 History of Past illness Narrative* Problem Noted Date Diagnosed Date Resolved Date Obesity (BMI 30-39.9) 05/31/20142016 documented as of this encounter (statuses as of 02/19/2023) [address]08[address]2015 History of Past illness Narrative* Problem Noted Date Diagnosed Date Resolved Date Obesity (BMI 30-39.9) 05/31/20142016 documented as of this encounter (statuses as of 02/21/2023) [address]08[address]2015 History of Past illness Narrative* Problem Noted Date Diagnosed Date Resolved Date Obesity (BMI 30-39.9) 05/31/20142016 documented as of this encounter (statuses as of 03/02/2023) [facility] Diagnosis Other systemic lupus erythematosus [...] and myositis, unspecified [facility] Diagnosis Swelling of lymph nodes- Primary Enlargement of lymph nodes Other systemic lupus erythematosus with other organ involvement (HCC) On prednisone therapy Hair loss Alopecia, unspecified Bilateral sacroiliitis (HCC) Long-term use of Plaquenil 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-term (current) use of other medications [facility] encounter [facility]* Diagnosis Vitamin B12 deficiency- Primary Other B-complex deficiencies Vitamin D deficiency Unspecified vitamin D deficiency Elevated sed rate Elevated sedimentation rate Elevated C-reactive protein (CRP) [facility] encounter [facility]* Diagnosis 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 Other vitamin B12 deficiency anemia Somnolence, daytime Hypersomnia, unspecified Snoring Other dyspnea and respiratory abnormality Chronic fatigue and malaise Chronic fatigue syndrome Obesity, unspecified classification, unspecified obesity type, unspecified whether serious comorbidity present [facility] this encounter [facility]* Diagnosis Obesity, Class II, BMI 35-39.9- [...] nonspecific immunological findings documented in this encounter [facility] note* Diagnosis 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 Other vitamin B12 deficiency anemia High total serum IgM [facility] Diagnosis Raised level of immunoglobulins- Primary Other and unspecified nonspecific immunological findings Wound healing, delayed Open wound(s) (multiple) of unspecified site(s), complicated Current smoker Tobacco use disorder [facility]* Diagnosis Family history of genetic disease- Primary Family history of other condition [facility] Diagnosis High total serum IgM- Primary Elevated sed rate Elevated sedimentation rate Somnolence, daytime Hypersomnia, unspecified JOSE RAFAEL (obstructive sleep apnea) Obstructive sleep apnea (adult) (pediatric) documented [facility]* Diagnosis 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 Other vitamin B12 deficiency anemia Elevated sed rate Elevated sedimentation rate [facility] Diagnosis 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 Other vitamin B12 deficiency anemia Elevated sed rate Elevated sedimentation rate High total serum IgM Chronic fatigue and malaise Chronic fatigue syndrome [facility] Diagnosis JOSE RAFAEL (obstructive sleep apnea)- Primary Obstructive sleep apnea (adult) (pediatric) [facility]* Diagnosis Other systemic lupus erythematosus with other organ involvement (HCC)- Primary Family history of Crohn's disease Family history of other digestive disorders Fibromyalgia Mylagia and myositis, unspecified [facility] Diagnosis Other systemic lupus erythematosus with other organ involvement (HCC)- Primary Elevated LFTs Other abnormal blood chemistry Anemia of chronic disease Anemia of other chronic disease 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 director long term care 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-term (current) use of other medications [facility] Diagnosis 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 Other vitamin B12 deficiency anemia Elevated sed rate Elevated sedimentation rate [facility] Diagnosis 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 Other vitamin B12 deficiency anemia Elevated sed rate Elevated sedimentation rate High total serum IgM Chronic fatigue and malaise Chronic fatigue syndrome JOSE RAFAEL (obstructive sleep apnea) Obstructive sleep apnea (adult) (pediatric) documented [facility] Diagnosis Vitamin D deficiency Unspecified vitamin D deficiency [facility] Diagnosis Obesity, Class III, BMI >= 40- Primary Morbid obesity Polypharmacy 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-term (current) use of other medications Pre-diabetes Other abnormal glucose [facility] Diagnosis 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 Other vitamin B12 deficiency anemia Elevated sed rate Elevated sedimentation rate [facility] Diagnosis 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 Other vitamin B12 deficiency anemia Elevated sed rate Elevated sedimentation rate [facility] Diagnosis 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 Other vitamin B12 deficiency anemia Elevated sed rate Elevated sedimentation rate High total serum IgM Chronic fatigue and malaise Chronic fatigue syndrome Obstructive sleep apnea syndrome Obstructive sleep apnea (adult) (pediatric) [facility] Diagnosis 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 Other vitamin B12 deficiency anemia Elevated sed rate Elevated sedimentation rate [facility] Diagnosis Other systemic lupus erythematosus with other organ involvement (HCC) 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 correction 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-term (current) use of other medications [facility] Diagnosis 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 Other vitamin B12 deficiency anemia Chronic fatigue and malaise Chronic fatigue syndrome [facility] Diagnosis High total serum IgM- Primary Low serum IgG for age Current smoker Tobacco use disorder [facility]* Diagnosis Obesity, Class II, BMI 35-39.9 Obesity, unspecified Prediabetes Other abnormal glucose [facility] Diagnosis 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 Other vitamin B12 deficiency anemia Elevated sed rate Elevated sedimentation rate [facility] Diagnosis Other systemic lupus erythematosus with other organ involvement (HCC)- Primary Vitamin D deficiency Unspecified vitamin D deficiency Elevated LFTs Other abnormal blood chemistry Anemia of chronic disease Anemia of other chronic disease Elevated sed rate Elevated sedimentation rate Elevated C-reactive protein (CRP) [facility] Diagnosis Other systemic lupus erythematosus [...] Bilateral wrist pain 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, forearm senior living 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-term (current) use of steroids Steroid-induced osteoporosis Other osteoporosis 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 [facility] Diagnosis Systemic lupus erythematosus with other organ involvement (HCC)- Primary [facility] Diagnosis 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 Other vitamin B12 deficiency anemia High total serum IgM Elevated sed rate Elevated sedimentation rate [facility] Diagnosis Other systemic lupus erythematosus with other organ involvement (HCC)- [facility] Diagnosis Other systemic lupus erythematosus with other organ involvement (HCC) 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 correction 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-term (current) use of other medications [facility] Diagnosis 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 Other vitamin B12 deficiency anemia Elevated sed rate Elevated sedimentation rate [facility] Diagnosis 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 Other vitamin B12 deficiency anemia Elevated sed rate Elevated sedimentation rate Chronic fatigue and malaise Chronic fatigue syndrome High total serum IgM JOSE RAFAEL (obstructive sleep apnea) Obstructive sleep apnea (adult) (pediatric) [facility] Diagnosis Insulin resistance, unspecified- Primary Depression, recurrent (HCC) Major depressive disorder, recurrent episode, unspecified Chronic pain syndrome [facility] Diagnosis Systemic lupus erythematosus, unspecified SLE type, unspecified organ involvement status (HCC)- Primary [facility] Diagnosis 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 Other vitamin B12 deficiency anemia Elevated sed rate Elevated sedimentation rate [facility]* Diagnosis 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 Other vitamin B12 deficiency anemia Elevated sed rate Elevated sedimentation rate documented in this encounter [facility] note* Diagnosis Obesity, Class III, BMI >= 40- Primary Morbid obesity FUO (fever of unknown origin) Fever, unspecified Other chronic pain documented in this encounter [facility] note* Diagnosis Obesity, Class III, BMI >= 40 Morbid obesity documented in this encounter [facility] note* Diagnosis Obesity, Class III, BMI >= 40- Primary Morbid obesity Other chronic pain documented in this encounter [facility] note* Diagnosis Irregular heart rate- Primary Essential hypertension Unspecified essential hypertension Autonomic dysfunction Obstructive sleep apnea syndrome Obstructive sleep apnea (adult) (pediatric) Primary hypertension Unspecified essential hypertension documented in this encounter [facility] Work Phone: Evaluation note* Diagnosis Autoimmune disease (CMS/HCC)- Primary Autoimmune disease, not elsewhere classified Autonomic dysfunction Lumbosacral radiculopathy Thoracic or lumbosacral neuritis or radiculitis, unspecified Bilateral leg weakness Muscle weakness (generalized) [facility] - [facility]orted* Type Description Date Medical History hyperlipidemia Medical History insulin resistance Medical History CMV Surgical History cyst removal pilonidal Surgical History D&C Hospitalization History Geddit Other Reason for referral (narrative)* Diagnostic Procedure Only (Routine) - Pending Review Specialty Diagnoses / Procedures Referred By Nahid tran Referred To Contact XR IMAGING Diagnoses Steroid-induced osteoporosis Procedures DXA-FOREARM SKELETON DXA BONE DENSITY STUDY 1/>SITES APPENDICLR Lynne Perera MD [address] [place] [address] [place] [id number] Referral ID Status Reason Start Date Expiration Date Visits Requested Visits Authorized [id number] Pending Review Auto-Generat ed Referral 02/04/2023 03/05/2024 1 1 [facility] for referral (narrative)* Consultation (Routine) - Authorized Specialty Diagnoses / Procedures Referred By Contac t Referred To Contact Cardiology Diagnoses Irregular heart rate Essential hypertension Autonomic dysfunction Obstructive sleep apnea syndrome Primary hypertension Procedures Follow Up In Cardiology Michelle Britton APRN-CNP [address] [facility] [address] [place] [address] Aurora Patel MD [address] [address] Referral ID Status Reason Start Date Expiration Date V isits Requested Visits Authorized [id number] Authorized 06/09/2023 06/08/2024 1 1 * Cardiovascular (Routine) - Pending Review Specialty Diagnoses / Procedures Referred By Contac t Referred To Contact Cardiology Diagnoses Irregular heart rate Procedures Holter Or Event 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 Specialist [facility] [address] [facility] [address] [place] [address] Referral ID Status Reason Start Date Expiration Date V isits Requested Visits Authorized Pending Review 06/09/2023 06/08/2024 1 1 * CV Imaging (Routine) - Pending Review Specialty Diagnoses / Procedures Referred By Contac t Referred To Contact Cardiology Diagnoses Irregular heart rate Obstructive sleep apnea syndrome Procedures Transthoracic Echo (TTE) Complete NV ECHO TTHRC R-T 2D W/WOM-MODE COMPL SPEC&COLR D [facility] [address] [facility] [address] [place] [address] Referral ID Status Reason Start Date Expiration Date Visits Requested Visits Authorized Pending Review Perform Procedure 06/09/2023 06/08/2024 1 1 * Cardiovascular (Routine) - Authorized Specialty Diagnoses / Procedures [facility] Referred To Contact Diagnoses Irregular heart rate Procedures ECG 12 Lead [facility] [address] [facility] [address] [place] [address] Referral ID Status Reason Start Date Expiration Date V isits Requested Visits Authorized [id number] Authorized 06/09/2023 06/08/2024 1 1 [facility] Work Phone: Summary Purpose Family History No Family History Records FoundNo Family History Records FoundNo Family History Records FoundNo Family History Records FoundNo Family History Records FoundNo Family History Records FoundNo Family History Records FoundNo Family History Records FoundNo Family History Records Found Advance Directives Documents on File Type Date Recorded Patient Content Producer Expl anation ACP-Advance Directive ACP-Power of Cellar Supervisor Latest Code Status on File Code Status Date Activated Date Inactivated Comments Full Code 10/07/2020 8:32 AM Documents on File Type Date Recorded Patient Content Producer Expl anation Advance Directive(s) 09/13/2015 8:36 AM Reason for Referral Specialty Diagnoses / Procedures Referred By Contac t Referred To Contact Diagnoses Obesity, Class III, BMI 40-49.9 (morbid obesity) (HCC) Pre-diabetes Christie Phan MD [address] [place] [address] Referral ID Status Reason Start Date Expiration Date Visits Re quested Visits Authorized [id number] Closed 1 1 Specialty Diagnoses / Procedures Referred By Contac t Referred To Contact Diagnoses Wound healing, delayed Procedures CONSULT TO MEDICAL GENETICS - GENERAL OFFICE/OUTPATIENT [facility] 60-74 MINUTES MEDICAL GENETICS COUNSELING EACH 30 MINUTES Misty Nelson MD [address] [place] [address] [facility] Medicine [place] [address] [place] [address] Referral ID Status Reason Start Date Expiration Date Visits Requested Visits Authorized [id number] Authorized PCP Requested Referral Auto-Generate d Referral 2 03/10/2023 1 1 Specialty Diagnoses / Procedures Referred By Contac t Referred To Contact Neurology Diagnoses POTS (postural orthostatic tachycardia syndrome) Procedures CONSULT TO NEUROLOGY OFFICE/OUTPATIENT [facility] 60-74 MINUTES Christie Phan MD [address] [place] [address] Referral ID Status Reason Start Date Expiration Date Visits Requested Visits Authorized [id number] Authorized PCP Requested Referral 2 03/12/2023 1 1 Specialty Diagnoses / Procedures Referred By Nahid t Referred To Contact Immunology Diagnoses Raised level of immunoglobulins Procedures CONSULT TO IMMUNOLOGY OFFICE/OUTPATIENT [facility] 60-74 MINUTES Christie Phan MD [address] [place], [place] [id number] Referral ID Status Reason Start Date Expiration Date V isits Requested Visits Authorized [id number] Closed PCP Requested Referral 03/09/2022 03/09/2023 1 1 Specialty Diagnoses / Procedures Referred By Nahid t Referred To Contact [facility] Diagnoses Somnolence, daytime Snoring Procedures HOME SLEEP APNEA TEST (HSAT) SLEEP STD AIRFLOW HRT RATE&O2 SAT EFFORT UNATT Christie Phan MD [address] [place], [place] [phone] Neurological [place] [address] [place] [address] Referral ID Status Reason Start Date Expiration Date Visits Requested Visits Authorized [id number] Authorized Auto-Generat ed Referral 2 03/09/2023 1 1 Specialty Diagnoses / Procedures Referred By Nahid tran Referred To Contact Diagnoses Somnolence, daytime Chronic fatigue and malaise Obesity, unspecified classification, unspecified obesity type, unspecified whether serious comorbidity present Procedures CONSULT TO LIFESTYLE MEDICINE MD OFFICE/OUTPATIENT [facility] 60-74 MINUTES Jose Najera MD [address] [place] [address] [place] [address] Referral ID Status Reason Start Date Expiration Date V isits Requested Visits Authorized [id number] Closed PCP Requested Referral 03/04/2022 03/04/2023 1 1 Specialty Diagnoses / Procedures Referred By Nahid tran Referred To Contact Diagnoses Somnolence, daytime Snoring Procedures CONSULT TO SLEEP MEDICINE - ADULT OFFICE/OUTPATIENT [facility] 60-74 MINUTES Jose Najera MD [facility] [place] [address] Referral ID Status Reason Start Date Expiration Date Visits Requested Visits Authorized [id number] Authorized PCP Requested Referral 2 03/04/2023 1 [...] section and content) DATE CREATED AUTHOR 09/20/2018 [facility] DATE CREATED AUTHOR AUTHOR'S ORGANIZ ATION 09/23/2018 [facility] DATE CREATED AUTHOR AUTHOR'S ORGANIZ ATION 12/10/2018 [facility] DATE CREATED AUTHOR AUTHOR'S ORGANIZ ATION 01/13/2019 [facility] DATE CREATED AUTHOR AUTHOR'S ORGANIZ ATION 06/28/2021 [facility] DATE CREATED AUTHOR AUTHOR'S ORGANIZ ATION 10/01/2022 [facility] DATE CREATED AUTHOR AUTHOR'S ORGANIZ ATION 06/02/2023 [facility] DATE CREATED AUTHOR AUTHOR'S ORGANIZ ATION 06/10/2023 [facility] DATE CREATED AUTHOR AUTHOR'S ORGANIZ ATION 06/18/2023 [facility] Reason for Visit (unrecogniz ed section and content) Status Reason Specialty Diagnoses / Procedures Referre d By Contact Referred To Contact [facility] Reason Comments Pain ongoing generalized pain. Reason Comments New Reason Comments Opened In Error Reason Comments Results Reason Comments Abnormal labs New patient consult Reason Comments New Patient Virtual visit Specialty Diagnoses / Procedures Referred By Nahid tran Referred To Contact Diagnoses Somnolence, daytime Chronic fatigue and malaise Obesity, unspecified classification, unspecified obesity type, unspecified whether serious comorbidity present Procedures CONSULT TO LIFESTYLE MEDICINE MD OFFICE/OUTPATIENT [facility] 60-74 MINUTES Jose Najera MD [address] [place] [address] [place] [address] Referral ID Status Reason Start Date Expiration Date V isits Requested Visits Authorized [id number] Closed PCP Requested Referral 03/04/2022 03/04/2023 1 1 Reason Comments High Total serum IgM Anemia Reason Comments Consult Specialty Diagnoses / Procedures Referred By Contac t Referred To Contact Immunology Diagnoses Raised level of immunoglobulins Procedures CONSULT TO IMMUNOLOGY OFFICE/OUTPATIENT [facility] 60-74 MINUTES Christie Phan MD [address], [place] [address] Referral ID Status Reason Start Date Expiration Date V isits Requested Visits Authorized [id number] Closed PCP Requested Referral 03/09/2022 03/09/2023 1 1 Reason Comments Pneumovax Reason Comments Refill Request Reason Comments Appointment Storm Sash Maker - Other Reason Comments Future Appointment Scheduling questions /concerns Reason Comments PAP Therapy Follow Up Reason Comments PAP Rx Faxed DME Josh Reese Reason Comments Anemia 8 week follow up [...] BP Specialty Diagnoses / Procedures Referred By Nahid t Referred To Contact Diagnoses Irregular heart rate Procedures ECG 12 Lead Michelle Britton, GARBAGE TRUCK HELPER-DESIGN PRINTING MACHINE SET UP OPERATOR [address] [facility] [address] [place] [address] Referral ID Status Reason Start Date Expiration Date V isits Requested Visits Authorized [id number] Authorized 06/09/2023 06/08/2024 1 1 Ordered Prescriptions [...] or prosecute any alcohol or drug abuse patient.[facility] the event this information is protected by the Federal Confidentiality of Alcohol and Drug Abuse Patient Records regulations: The Federal rules restrict any use of the information to criminally investigate or prosecute any alcohol or drug abuse patient.[facility] Hospital[facility] the event this information is protected by the Federal Confidentiality of Alcohol and Drug Abuse Patient Records regulations: The Federal rules restrict any use of the information to criminally investigate or prosecute any alcohol or drug abuse patient.[facility] Hospital[facility] the event this information is protected by the Federal Confidentiality of Alcohol and Drug Abuse Patient Records regulations: The Federal rules restrict any use of the information to criminally investigate or prosecute any alcohol or drug abuse patient.[facility] Hospital[facility] the event this information is protected by the Federal Confidentiality of Alcohol and Drug Abuse Patient Records regulations: The Federal rules restrict any use of the information to criminally investigate or prosecute any alcohol or drug abuse patient.[facility] Hospital[facility] the event this information is protected by the Federal Confidentiality of Alcohol and Drug Abuse Patient Records regulations: The Federal rules restrict any use of the information to criminally investigate or prosecute any alcohol or drug abuse patient.[facility] Hospital[facility] the event this information is protected by the Federal Confidentiality of Alcohol and Drug Abuse Patient Records regulations: The Federal rules restrict any use of the information to criminally investigate or prosecute any alcohol or drug abuse patient.[facility] Hospital[facility] the event this information is protected by the Federal Confidentiality of Alcohol and Drug Abuse Patient Records regulations: The Federal rules restrict any use of the information to criminally investigate or prosecute any alcohol or drug abuse patient.[facility] Hospital[facility] the event this information is protected by the Federal Confidentiality of Alcohol and Drug Abuse Patient Records regulations: The Federal rules restrict any use of the information to criminally investigate or prosecute any alcohol or drug abuse patient.[facility] Hospital[facility] the event this information is protected by the Federal Confidentiality of Alcohol and Drug Abuse Patient Records regulations: The Federal rules restrict any use of the information to criminally investigate or prosecute any alcohol or drug abuse patient.[facility] Hospital[facility] the event this information is protected by the Federal Confidentiality of Alcohol and Drug Abuse Patient Records regulations: The Federal rules restrict any use of the information to criminally investigate or prosecute any alcohol or drug abuse patient.[facility] Hospital[facility] the event this information is protected by the Federal Confidentiality of Alcohol and Drug Abuse Patient Records regulations: The Federal rules restrict any use of the information to criminally investigate or prosecute any alcohol or drug abuse patient.[facility] HospitalIn the event this information is protected by the Federal Confidentiality of Alcohol and Drug Abuse Patient Records regulations: The Federal rules restrict any use of the information to criminally investigate or prosecute any alcohol or drug abuse patient.[facility] Hospital[facility] the event this information is protected by the Federal Confidentiality of Alcohol and Drug Abuse Patient Records regulations: The Federal rules restrict any use of the information to criminally investigate or prosecute any alcohol or drug abuse patient.[facility] Hospital[facility] the event this information is protected by the Federal Confidentiality of Alcohol and Drug Abuse Patient Records regulations: The Federal rules restrict any use of the information to criminally investigate or prosecute any alcohol or drug abuse patient.[facility] HospitalIn the event this information is protected by the Federal Confidentiality of Alcohol and Drug Abuse Patient Records regulations: The Federal rules restrict any use of the information to criminally investigate or prosecute any alcohol or drug abuse patient.[facility] HospitalIn the event this information is protected by the Federal Confidentiality of Alcohol and Drug Abuse Patient Records regulations: The Federal rules restrict any use of the information to criminally investigate or prosecute any alcohol or drug abuse patient.[facility] HospitalIn the event this information is protected by the Federal Confidentiality of Alcohol and Drug Abuse Patient Records regulations: The Federal rules restrict any use of the information to criminally investigate or prosecute any alcohol or drug abuse patient.[facility] HospitalIn the event this information is protected by the Federal Confidentiality of Alcohol and Drug Abuse Patient Records regulations: The Federal rules restrict any use of the information to criminally investigate or prosecute any alcohol or drug abuse patient.[facility] HospitalIn the event this information is protected by the Federal Confidentiality of Alcohol and Drug Abuse Patient Records regulations: The Federal rules restrict any use of the information to criminally investigate or prosecute any alcohol or drug abuse patient.[facility] HospitalIn the event this information is protected by the Federal Confidentiality of Alcohol and Drug Abuse Patient Records regulations: The Federal rules restrict any use of the information to criminally investigate or prosecute any alcohol or drug abuse patient.[facility] the event this information is protected by the Federal Confidentiality of Alcohol and Drug Abuse Patient Records regulations: The Federal rules restrict any use of the information to criminally investigate or prosecute any alcohol or drug abuse patient.[facility] HospitalIn the event this information is protected by the Federal Confidentiality of Alcohol and Drug Abuse Patient Records regulations: The Federal rules restrict any use of the information to criminally investigate or prosecute any alcohol or drug abuse patient.[facility] HospitalIn the event this information is protected by the Federal Confidentiality of Alcohol and Drug Abuse Patient Records regulations: The Federal rules restrict any use of the information to criminally investigate or prosecute any alcohol or drug abuse patient.[facility] HospitalIn the event this information is protected by the Federal Confidentiality of Alcohol and Drug Abuse Patient Records regulations: The Federal rules restrict any use of the information to criminally investigate or prosecute any alcohol or drug abuse patient.[facility] HospitalIn the event this information is protected by the Federal Confidentiality of Alcohol and Drug Abuse Patient Records regulations: The Federal rules restrict any use of the information to criminally investigate or prosecute any alcohol or drug abuse patient.[facility] HospitalIn the event this information is protected by the Federal Confidentiality of Alcohol and Drug Abuse Patient Records regulations: The Federal rules restrict any use of the information to criminally investigate or prosecute any alcohol or drug abuse patient.[facility] HospitalIn the event this information is protected by the Federal Confidentiality of Alcohol and Drug Abuse Patient Records regulations: The Federal rules restrict any use of the information to criminally investigate or prosecute any alcohol or drug abuse patient.[facility] HospitalIn the event this information is protected by the Federal Confidentiality of Alcohol and Drug Abuse Patient Records regulations: The Federal rules restrict any use of the information to criminally investigate or prosecute any alcohol or drug abuse patient.[facility] HospitalIn the event this information is protected by the Federal Confidentiality of Alcohol and Drug Abuse Patient Records regulations: The Federal rules restrict any use of the information to criminally investigate or prosecute any alcohol or drug abuse patient.[facility] HospitalIn the event this information is protected by the Federal Confidentiality of Alcohol and Drug Abuse Patient Records regulations: The Federal rules restrict any use of the information to criminally investigate or prosecute any alcohol or drug abuse patient.[facility] HospitalIn the event this information is protected by the Federal Confidentiality of Alcohol and Drug Abuse Patient Records regulations: The Federal rules restrict any use of the information to criminally investigate or prosecute any alcohol or drug abuse patient.[facility] HospitalIn the event this information is protected by the Federal Confidentiality of Alcohol and Drug Abuse Patient Records regulations: The Federal rules restrict any use of the information to criminally investigate or prosecute any alcohol or drug abuse patient.[facility] HospitalIn the event this information is protected by the Federal Confidentiality of Alcohol and Drug Abuse Patient Records regulations: The Federal rules restrict any use of the information to criminally investigate or prosecute any alcohol or drug abuse patient.[facility] HospitalIn the event this information is protected by the Federal Confidentiality of Alcohol and Drug Abuse Patient Records regulations: The Federal rules restrict any use of the information to criminally investigate or prosecute any alcohol or drug abuse patient.[facility] HospitalIn the event this information is protected by the Federal Confidentiality of Alcohol and Drug Abuse Patient Records regulations: The Federal rules restrict any use of the information to criminally investigate or prosecute any alcohol or drug abuse patient.[facility] HospitalIn the event this information is protected by the Federal Confidentiality of Alcohol and Drug Abuse Patient Records regulations: The Federal rules restrict any use of the information to criminally investigate or prosecute any alcohol or drug abuse patient.[facility] HospitalIn the event this information is protected by the Federal Confidentiality of Alcohol and Drug Abuse Patient Records regulations: The Federal rules restrict any use of the information to criminally investigate or prosecute any alcohol or drug abuse patient.[facility] HospitalIn the event this information is protected by the Federal Confidentiality of Alcohol and Drug Abuse Patient Records regulations: The Federal rules restrict any use of the information to criminally investigate or prosecute any alcohol or drug abuse patient.[facility] HospitalIn the event this information is protected by the Federal Confidentiality of Alcohol and Drug Abuse Patient Records regulations: The Federal rules restrict any use of the information to criminally investigate or prosecute any alcohol or drug abuse patient.[facility] HospitalIn the event this information is protected by the Federal Confidentiality of Alcohol and Drug Abuse Patient Records regulations: The Federal rules restrict any use of the information to criminally investigate or prosecute any alcohol or drug abuse patient.[facility] the event this information is protected by the Federal Confidentiality of Alcohol and Drug Abuse Patient Records regulations: The Federal rules restrict any use of the information to criminally investigate or prosecute any alcohol or drug abuse patient.[facility] HospitalIn the event this information is protected by the Federal Confidentiality of Alcohol and Drug Abuse Patient Records regulations: The Federal rules restrict any use of the information to criminally investigate or prosecute any alcohol or drug abuse patient.[facility] HospitalIn the event this information is protected by the Federal Confidentiality of Alcohol and Drug Abuse Patient Records regulations: The Federal rules restrict any use of the information to criminally investigate or prosecute any alcohol or drug abuse patient.[facility] HospitalIn the event this information is protected by the Federal Confidentiality of Alcohol and Drug Abuse Patient Records regulations: The Federal rules restrict any use of the information to criminally investigate or prosecute any alcohol or drug abuse patient.[facility] HospitalIn the event this information is protected by the Federal Confidentiality of Alcohol and Drug Abuse Patient Records regulations: The Federal rules restrict any use of the information to criminally investigate or prosecute any alcohol or drug abuse patient.[facility] HospitalIn the event this information is protected by the Federal Confidentiality of Alcohol and Drug Abuse Patient Records regulations: The Federal rules restrict any use of the information to criminally investigate or prosecute any alcohol or drug abuse patient.[facility] HospitalIn the event this information is protected by the Federal Confidentiality of Alcohol and Drug Abuse Patient Records regulations: The Federal rules restrict any use of the information to criminally investigate or prosecute any alcohol or drug abuse patient.[facility] HospitalIn the event this information is protected by the Federal Confidentiality of Alcohol and Drug Abuse Patient Records regulations: The Federal rules restrict any use of the information to criminally investigate or prosecute any alcohol or drug abuse patient.[facility] HospitalIn the event this information is protected by the Federal Confidentiality of Alcohol and Drug Abuse Patient Records regulations: The Federal rules restrict any use of the information to criminally investigate or prosecute any alcohol or drug abuse patient.[facility] HospitalIn the event this information is protected by the Federal Confidentiality of Alcohol and Drug Abuse Patient Records regulations: The Federal rules restrict any use of the information to criminally investigate or prosecute any alcohol or drug abuse patient.[facility] HospitalIn the event this information is protected by the Federal Confidentiality of Alcohol and Drug Abuse Patient Records regulations: The Federal rules restrict any use of the information to criminally investigate or prosecute any alcohol or drug abuse patient.[facility] HospitalIn the event this information is protected by the Federal Confidentiality of Alcohol and Drug Abuse Patient Records regulations: The Federal rules restrict any use of the information to criminally investigate or prosecute any alcohol or drug abuse patient.[facility] HospitalIn the event this information is protected by the Federal Confidentiality of Alcohol and Drug Abuse Patient Records regulations: The Federal rules restrict any use of the information to criminally investigate or prosecute any alcohol or drug abuse patient.[facility] HospitalIn the event this information is protected by the Federal Confidentiality of Alcohol and Drug Abuse Patient Records regulations: The Federal rules restrict any use of the information to criminally investigate or prosecute any alcohol or drug abuse patient.[facility] HospitalIn the event this information is protected by the Federal Confidentiality of Alcohol and Drug Abuse Patient Records regulations: The Federal rules restrict any use of the information to criminally investigate or prosecute any alcohol or drug abuse patient.[facility] HospitalIn the event this information is protected by the Federal Confidentiality of Alcohol and Drug Abuse Patient Records regulations: The Federal rules restrict any use of the information to criminally investigate or prosecute any alcohol or drug abuse patient.[facility] HospitalIn the event this information is protected by the Federal Confidentiality of Alcohol and Drug Abuse Patient Records regulations: The Federal rules restrict any use of the information to criminally investigate or prosecute any alcohol or drug abuse patient.[facility] HospitalIn the event this information is protected by the Federal Confidentiality of Alcohol and Drug Abuse Patient Records regulations: The Federal rules restrict any use of the information to criminally investigate or prosecute any alcohol or drug abuse patient.[facility] HospitalIn the event this information is protected by the Federal Confidentiality of Alcohol and Drug Abuse Patient Records regulations: The Federal rules restrict any use of the information to criminally investigate or prosecute any alcohol or drug abuse patient.[facility] HospitalIn the event this information is protected by the Federal Confidentiality of Alcohol and Drug Abuse Patient Records regulations: The Federal rules restrict any use of the information to criminally investigate or prosecute any alcohol or drug abuse patient.[facility] HospitalIn the event this information is protected by the Federal Confidentiality of Alcohol and Drug Abuse Patient Records regulations: The Federal rules restrict any use of the information to criminally investigate or prosecute any alcohol or drug abuse patient.[facility] HospitalIn the event this information is protected by the Federal Confidentiality of Alcohol and Drug Abuse Patient Records regulations: The Federal rules restrict any use of the information to criminally investigate or prosecute any alcohol or drug abuse patient.[facility] HospitalIn the event this information is protected by the Federal Confidentiality of Alcohol and Drug Abuse Patient Records regulations: The Federal rules restrict any use of the information to criminally investigate or prosecute any alcohol or drug abuse patient.[facility] HospitalIn the event this information is protected by the Federal Confidentiality of Alcohol and Drug Abuse Patient Records regulations: The Federal rules restrict any use of the information to criminally investigate or prosecute any alcohol or drug abuse patient.[facility] HospitalIn the event this information is protected by the Federal Confidentiality of Alcohol and Drug Abuse Patient Records regulations: The Federal rules restrict any use of the information to criminally investigate or prosecute any alcohol or drug abuse patient.[facility] Care Teams (unrecognized sec tion and content) Drywall 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 Relationship Specialty Start Date End Date Gay Ecniso, MAURILIO.DESIGN PRINTING MACHINE SET UP OPERATOR [address] [place] [address] PCP - General Family Practice 10/24/21 Drywall 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 Relationship Specialty Start Date End Date Gay Enciso, GARBAGE TRUCK HELPER.DESIGN PRINTING MACHINE SET UP OPERATOR [address] [place] [address] PCP - General Family Medicine 10/24/21 Madelaine Ferris MD [address] [place] [address] Referring Family Medicine 02/12/22 Drywall 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 Relationship Specialty Start Date End Date Madelaine Ferris MD [address] [place] [address] PCP - General Family Medicine 02/27/22 Madelaine Ferris MD [address] [place] [address] Referring Family Medicine 02/12/22 Drywall 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 Relationship Specialty Start Date End Date Madelaine Ferris MD [address] [facility] [place] [address] PCP - General Family Medicine 02/27/22 Madelaine Ferris MD [address] [facility] [place] [address] Referring Family Medicine 02/12/22 Drywall 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 Relationship Specialty Start Date End Date Madelaine Ferris MD [address] [facility] [place] [address] PCP - General Family Medicine 02/27/22 Madelaine Ferris MD [address] [facility] [place] [address] Referring Family Medicine 02/12/22 Drywall 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 Relationship Specialty Start Date End Date Madelaine Ferris MD [address] [facility] [place] [address] PCP - General Family Medicine 02/27/22 Madelaine Ferris MD [address] [facility] [place] [address] Referring Family Medicine 02/12/22 Drywall 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 Relationship Specialty Start Date End Date Madelaine Ferris MD [address] [facility] [place] [address] PCP - General Family Medicine 02/27/22 Madelaine Ferris MD [address] [facility] [place] [address] Referring Family Medicine 02/12/22 Drywall 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 Relationship Specialty Start Date End Date Madelaine Ferris MD [address] [facility] [place] [address] PCP - General Family Medicine 02/27/22 Madelaine Ferris MD [address] [facility] [place] [address] Referring Family Medicine 02/12/22 Drywall 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 Relationship Specialty Start Date End Date Madelaine Ferris MD [address] [facility] [place] [address] PCP - General Family Medicine 02/27/22 Madelaine Ferris MD [address] [facility] [place] [address] Referring Family Medicine 02/12/22 Drywall 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 Relationship Specialty Start Date End Date Madelaine Ferris MD [address] [facility] [place] [address] PCP - General Family Medicine 02/27/22 Madelaine Ferris MD [address] [facility] [place] [address] Referring Family Medicine 02/12/22 Drywall 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 Relationship Specialty Start Date End Date Madelaine Ferris MD [address] [facility] [place] [address] PCP - General Family Medicine 02/27/22 Madelaine Ferris MD [address] [facility] [place] [address] Referring Family Medicine 02/12/22 Drywall 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 Relationship Specialty Start Date End Date Madelaine Ferris MD [address] [facility] [place] [address] PCP - General Family Medicine 02/27/22 Madelaine Ferris MD [address] [facility] [place] [address] Referring Family Medicine 02/12/22 Drywall 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 Relationship Specialty Start Date End Date Madelaine Ferris MD [address] [facility] [place] [address] PCP - General Family Medicine 02/27/22 Madelaine Ferris MD [address] [facility] [place] [address] Referring Family Medicine 02/12/22 Drywall 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 Relationship Specialty Start Date End Date Madelaine Ferris MD [address] [facility] [place] [address] PCP - General Family Medicine 02/27/22 Madelaine Ferris MD [address] [facility] [place] [address] Referring Family Medicine 02/12/22 Drywall 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 Relationship Specialty Start Date End Date Madelaine Ferris MD [address] [facility] [place] [address] PCP - General Family Medicine 02/27/22 Madelaine Ferris MD [address] [facility] [place] [address] Referring Family Medicine 02/12/22 Drywall 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 Relationship Specialty Start Date End Date Madelaine Ferris MD [address] [facility] [place] [address] PCP - General Family Medicine 02/27/22 Madelaine Ferris MD [address] [facility] [place] [address] Referring Family Medicine 02/12/22 Drywall 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 Relationship Specialty Start Date End Date Madelaine Ferris MD [address] [facility] [place] [address] PCP - General Family Medicine 02/27/22 Madelaine Ferris MD [address] [facility] [place] [address] Referring Family Medicine 02/12/22 Drywall 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 Relationship Specialty Start Date End Date Madelaine Ferris MD [address] [facility] [place] [address] PCP - General Family Medicine 02/27/22 Madelaine Ferris MD [address] [facility] [place] [address] Referring Family Medicine 02/12/22 Drywall 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 Relationship Specialty Start Date End Date Madelaine Ferris MD [address] [facility] [place] [address] PCP - General Family Medicine 02/27/22 Madelaine Ferris MD [address] [facility] [place] [address] Referring Family Medicine 02/12/22 Drywall 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 Relationship Specialty Start Date End Date Madelaine Ferris MD [address] [facility] [place] [address] PCP - General Family Medicine 02/27/22 Madelaine Ferris MD [address] [facility] [place] [address] Referring Family Medicine 02/12/22 Drywall 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 Relationship Specialty Start Date End Date Madelaine Ferris MD [address] [facility] [place] [address] PCP - General Family Medicine 02/27/22 Madelaine Ferris MD [address] [facility] [address] Referring Family Medicine 02/12/22 Drywall 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 Relationship Specialty Start Date End Date Madelaine Ferris MD [address] [facility] [place] [address] PCP - General Family Medicine 02/27/22 Madelaine Ferris MD [address] [facility] [place] [address] Referring Family Medicine 02/12/22 Drywall 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 Relationship Specialty Start Date End Date Madelaine Ferris MD [address] [place] [address] PCP - General Family Medicine 02/27/22 Madelaine Ferris MD [address] [place] [address] Referring Family Medicine 02/12/22 Drywall 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 Relationship Specialty Start Date End Date Madelaine Ferris MD PCP - General Family Medicine 02/27/22 Madelaine Ferris MD Referring Family Medicine 02/12/22 Drywall 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 Relationship Specialty Start Date End Date Madelaine Ferris MD PCP - General Family Medicine 02/27/22 Madelaine Ferris MD Referring Family Medicine 02/12/22 Drywall 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 Relationship Specialty Start Date End Date Madelaine Ferris MD PCP - General Family Medicine 02/27/22 Madelaine Ferris MD Referring Family Medicine 02/12/22 Drywall 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 Relationship Specialty Start Date End Date Madelaine Ferris MD PCP - General Family Medicine 02/27/22 Madelaine Ferris MD Referring Family Medicine 02/12/22 Drywall 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 Relationship Specialty Start Date End Date Madelaine Ferris MD PCP - General Family Medicine 02/27/22 Madelaine Ferris MD Referring Family Medicine 02/12/22 Drywall 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 Relationship Specialty Start Date End Date Madelaine Ferris MD PCP - General Family Medicine 02/27/22 Madelaine Ferris MD Referring Family Medicine 02/12/22 Drywall 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 Relationship Specialty Start Date End Date Madelaine Ferris MD PCP - General Family Medicine 02/27/22 Madelaine Ferris MD Referring Family Medicine 02/12/22 Drywall 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 Relationship Specialty Start Date End Date Madelaine Ferris MD PCP - General Family Medicine 02/27/22 Madelaine Ferris MD Referring Family Medicine 02/12/22 Drywall 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 Relationship Specialty Start Date End Date Madelaine Ferris MD PCP - General Family Medicine 02/27/22 Madelaine Ferris MD Referring Family Medicine 02/12/22 Drywall 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 Relationship Specialty Start Date End Date Madelaine Ferris MD PCP - General Family Medicine 02/27/22 Madelaine Ferris MD Referring Family Medicine 02/12/22 Drywall 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 Relationship Specialty Start Date End Date Madelaine Ferris MD PCP - General Family Medicine 02/27/22 Madelaine Ferris MD Referring Family Medicine 02/12/22 Drywall 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 Relationship Specialty Start Date End Date Madelaine Ferris MD PCP - General Family Medicine 02/27/22 Madelaine Ferris MD Referring Family Medicine 02/12/22 Drywall 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 Relationship Specialty Start Date End Date Madelaine Ferris MD PCP - General Family Medicine 02/27/22 Madelaine Ferris MD Referring Family Medicine 02/12/22 Drywall 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 Relationship Specialty Start Date End Date Madelaine Ferris MD PCP - General Family Medicine 02/27/22 Madelaine Ferris MD Referring Family Medicine 02/12/22 Drywall 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 Relationship Specialty Start Date End Date Madelaine Ferris MD PCP - General Family Medicine 02/27/22 Madelaine Ferris MD Referring Family Medicine 02/12/22 Drywall 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 Relationship Specialty Start Date End Date Madelaine Ferris MD PCP - General Family Medicine 02/27/22 Madelaine Ferris MD Referring Family Medicine 02/12/22 Drywall 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 Relationship Specialty Start Date End Date Madelaine Ferris MD PCP - General Family Medicine 02/27/22 Madelaine Ferris MD Referring Family Medicine 02/12/22 Drywall 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 Relationship Specialty Start Date End Date Madelaine Ferris MD PCP - General Family Medicine 02/27/22 Madelaine Ferris MD Referring Family Medicine 02/12/22 Drywall 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 Relationship Specialty Start Date End Date Madelaine Ferris MD PCP - General Family Medicine 02/27/22 Madelaine Ferris MD Referring Family Medicine 02/12/22 Drywall 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 Relationship Specialty Start Date End Date Madelaine Ferris MD PCP - General Family Medicine 02/27/22 Madelaine Ferris MD Referring Family Medicine 02/12/22 Drywall 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 Relationship Specialty Start Date End Date Madelaine Ferris MD PCP - General Family Medicine 02/27/22 Madelaine Ferris MD Referring Family Medicine 02/12/22 Drywall 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 Relationship Specialty Start Date End Date Madelaine Ferris MD PCP - General Family Medicine 02/27/22 Madelaine Ferris MD Referring Family Medicine 02/12/22 Drywall 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 Relationship Specialty Start Date End Date Madelaine Ferris MD PCP - General Family Medicine 02/27/22 Madelaine Ferris MD Referring Family Medicine 02/12/22 Drywall 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 Relationship Specialty Start Date End Date Madelaine Ferris MD PCP - General Family Medicine 02/27/22 Madelaine Ferris MD Referring Family Medicine 02/12/22 Drywall 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 Relationship Specialty Start Date End Date Madelaine Ferris MD PCP - General Family Medicine 02/27/22 Madelaine Ferris MD Referring Family Medicine 02/12/22 Drywall 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 Relationship Specialty Start Date End Date Madelaine Ferris MD PCP - General Family Medicine 02/27/22 Madelaine Ferris MD Referring Family Medicine 02/12/22 Drywall 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 Relationship Specialty Start Date End Date Charles Mitchell DO [address] [place] [address] PCP - General 10/22/18 Michelle Britton APRN-DESIGN PRINTING MACHINE SET UP OPERATOR [address] [place] [id number] Nurse Practitioner Cardiology 1/16/24 FOR RECORDS PERTAINING TO PATIENTS WHO ARE [...] BE BASED ON THE PRIMARY CLINICAL RECORDS. [facility]. provides no warranty or guarantee of the accuracy or completeness of information in this document.
--- NOTE | 2023-07-07 22:30 | ECG_ITS ---
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
--- NOTE | 2023-07-07 22:31 | ED_ITS ---
HPI - General Adult General Chief complaint: Abdominal Pain Stated complaint: C Diff Time Seen by Provider: 07/07/23 22:10 Source: patient Mode of arrival: walk-in Limitations: no limitations History of Present Illness HPI narrative: This 43-year-old female who was recently diagnosed with C. difficile after being treated for a boil on her inner thigh with 2 different antibiotics and is currently on antibiotics for C. difficile and has a history of lupus but is off her lupus medications due to the infection and being on antibiotics presents for evaluation of feeling weak and dehydrated. The patient states she has been taking the medications for approximately 10 days. She was initially prescribed Flagyl but then her family physician changed to Flagyl 2 different antibiotic, Fidaxomicin (Difficid). States she thought she was improving and yesterday only had 2-3 sodas of diarrhea but today she had 6 or 7 episodes of loose watery stool. She states she is eating very little because she is afraid it will give her diarrhea. She is drinking very little as well and feels that she is becoming dehydrated. She does not have any abdominal pain or vomiting at this time. She has had intermittent chills. She has no chest pain or shortness of breath. She has not had any dizziness or syncope. Related Data Home Medications Medication Instructions Recorded Confirmed 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 50 mg tablet 150 mg PO DAILY 12/18/22 07/07/23 clindamycin phosphate 1 % topical 1 applic topical DAILY 12/18/22 07/07/23 gel clobetasol 0.05 % shampoo 1 applic topical .4 times weekly 12/18/22 07/07/23 ergocalciferol (vitamin D2) 1,250 1,250 mcg PO .3 times weekly 12/18/22 07/07/23 mcg (50,000 unit) capsule fluocinonide 0.05 % topical 1 applic topical BID 12/18/22 07/07/23 solution folic acid 1 mg tablet 1 mg PO DAILY 12/18/22 07/07/23 hydroxychloroquine 200 mg tablet 200 mg PO BID 12/18/22 07/07/23 metoprolol tartrate 25 mg tablet 100 mg PO Q12H 12/18/22 07/07/23 prednisone 10 mg tablet 10 mg PO DAILY 12/18/22 07/07/23 pregabalin 75 mg capsule 75 mg PO Q8H 12/18/22 07/07/23 tacrolimus 0.1 % topical ointment 1 applic topical Q12H PRN forehead 12/18/22 07/07/23 fidaxomicin 200 mg tablet (Dificid) mg 07/07/23 metoprolol tartrate 50 mg tablet mg 07/07/23 Previous Rx's Medication Instructions Recorded hyoscyamine sulfate 0.125 mg 0.125 mg PO Q6H PRN abdominal pain 06/26/23 tablet (Levsin) #12 tabs magnesium citrate (Citrate of 296 ml PO DAILY constipation #296 06/26/23 Magnesia oral) mL ondansetron 4 mg disintegrating 4 mg PO Q6H PRN nausea and 06/26/23 tablet vomiting #12 tabs metronidazole 500 mg tablet 500 mg PO Q12H 10 days #20 tabs 06/28/23 Allergies Allergy/AdvReac Type Severity Reaction Status Date / Time Bactrim Allergy Intermediate Uncoded 07/07/23 22:18 Review of Systems ROS Status of ROS 10 or more systems reviewed and unremark able except as noted in history and below [facility] Social History Smoking status: Current every day smoker Exam Narrative Exam Narrative: Nurses note and vital signs reviewed and patient is not hypoxic.Pulses elevated at 96, blood pressure is stable at 120/83 General: Anxious, tearful at times overweight female resting comfortably on the stretcher, no respiratory distress Skin: Warm, dry, no pallor noted. There is no rash noted. Head: Normocephalic, atraumatic Eye: Normal conjunctiva, no drainage, EOMI. PERRL Ears, Nose, Mouth, and Throat: oral mucosa is dry, No oral lesions noted Cardiovascular: Regular Rate and Rhythm S1S2, no murmurs, rubs or gallops, pulses are brisk and equal bilaterally Respiratory: Patient is in no distress, no accessory muscle use, lungs are clear to auscultation, no wheezing, rales or rhonchi Back: non-tender, no CVA tenderness bilaterally to percussion. GI: Normal bowel sounds, no tenderness to palpation, no masses appreciated. No rebound, guarding, or rigidity noted. Musculoskeletal: The patient has no evidence of calf tenderness, no pitting edema, symmetrical pulses noted bilaterally Neurological: A&O x4, normal speech Psychiatric: Cooperative Constitutional Vital Signs, click to edit/add: Last Vital Signs Temp 97.6 F 07/08/23 00:46 Pulse 77 07/08/23 01:50 Resp 16 07/08/23 01:50 BP 112/73 07/08/23 00:46 Pulse Ox 96 07/08/23 01:50 O2 Del Method Room Air 07/07/23 22:12 Course Vital Signs Vital signs: Vital Signs Temperature 99.0 F 07/07/23 22:12 Pulse Rate 96 H 07/07/23 22:12 Respiratory Rate 22 07/07/23 22:12 Blood Pressure 128/83 07/07/23 22:12 Pulse Oximetry 97 07/07/23 22:12 Oxygen Delivery Method Room Air 07/07/23 22:12 Temperature 97.6 F 07/08/23 00:46 Pulse Rate 77 07/08/23 01:50 Respiratory Rate 16 07/08/23 01:50 Blood Pressure 112/73 07/08/23 00:46 Pulse Oximetry 96 07/08/23 01:50 Oxygen Delivery Method Room Air 07/07/23 22:12 Medical Decision Making MDM Narrative Medical decision making narrative: 42-year-old female with a history of lupus presents for evaluation and concerns of dehydration. She was recently found to have C. difficile. She is on antibiotics and was taken off of her medications for lupus. She states that yesterday she was starting to feel better and her stool started to firm up but today she had 6-8 episodes of loose watery stool some of the stool was floating. She states she has been drinking but is not eating much and is concerned that she is becoming dehydrated. She has been looking up side effects from C. difficile online and was afraid that she was becoming dehydrated or developing a megacolon. She is not having any abdominal pain or vomiting. Her abdomen is soft. She did not have any additional episodes of diarrhea while in the emergency department. In light of the concern for dehydration she was done upon arrival sinus rhythm at 70 bpm. An IV was placed and she was medicated with IV fluids. Routine labs are ordered and are reviewed. She has a normal white count and hemoglobin. Her lactic acid is mildly elevated at 2.5. Electrolytes are normal with the exception of an elevated sodium of 146 and chloride of 109. Her BUN and creatinine are normal at this time. She was given a liter of normal saline and reevaluated. She is hemodynamically stable. She is agreeable to additional 500 mL of normal saline and while it is running we will retest her la ctic acid.His offered something to drink but declines drinking anything because she is afraid is going to give her more diarrhea. I encouraged her to continue taking po fluids and continue her Difficid medication for the C diff infection. Repeat lactic acid is 1.0. She is feeling better and has not had any additional episodes of diarrhea while in the ED. Lab Data Labs: Lab Results 07/07/23 07/08/23 Range/Units 22:48 01:25 WBC 10.5 (4.0-11.0) 10^3/uL RBC 4.05 L (4.20-5.40) 10^6/uL Hgb 12.5 (12.0-16.0) g/dL Hct 38.5 (36.0-48.0) % MCV 95.1 (81.0-99.0) fL MCH 30.9 (26.7-34.0) pg MCHC 32.5 (29.9-35.2) g/dL RDW 14.2 (11.0-15.0) % Plt Count 309 (150-450) 10^3/uL MPV 10.3 (9.5-13.5) fL Neut % (Auto) 58.8 (43.0-75.0) % Lymph % (Auto) 31.4 (20.5-60.0) % Butler % (Auto) 7.5 (1.7-12.0) % Eos % (Auto) 1.0 (0.9-7.0) % Baso % (Auto) 0.6 (0.2-2.0) % Neut # (Auto) 6.2 (1.4-6.5) 10^3/uL Lymph # (Auto) 3.3 (1.2-3.8) 10^3/uL Butler # (Auto) 0.8 (0.3-0.8) 10^3/uL Eos # (Auto) 0.1 (0.0-0.7) 10^3/uL Baso # (Auto) 0.1 (0.0-0.1) 10^3/uL Abs Immat Gran (auto) 0.07 H (0.00-0.03) 10^3/uL Imm/Tot Granulo (auto) 0.7 H (0.0-0.5) % Sodium 146 H (136-145) mmol/L Potassium 3.4 L (3.5-5.1) mmol/L Chloride 109 H (98-107) mmol/L Carbon Dioxide 21.8 (21.0-32.0) mmol/L Anion Gap 18.6 BUN 10.0 (7.0-18.0) mg/dL Creatinine 0.74 (0.55-1.02) mg/dL Est GFR ( Amer) >60 (>=60) Est GFR (Non-Af Amer) >60 (>=60) BUN/Creatinine Ratio 13.5 Glucose 109 H (74-106) mg/dL Lactate 2.5 H* 1.0 (0.4-2.0) mmol/L Calcium 8.4 L (8.5-10.1) mg/dL Total Bilirubin 0.3 (0.2-1.0) mg/dL AST 24 (15-37) U/L ALT 62 H (14-59) U/L Alkaline Phosphatase 53 (46-116) U/L Total Protein 6.8 (6.4-8.2) g/dL Albumin 3.3 L (3.4-5.0) g/dL Globulin 3.5 g/dL Albumin/Globulin Ratio 0.9 ECG Data Attestation: I personally reviewed and interpreted this ECG as follows: (Sinus rhythm at 70 beats for minute, normal axis, normal intervals, no acute ST segment elevation or T-wave inversion) Discharge Plan Discharge Chief Complaint: Abdominal Pain Clinical Impression: C. difficile colitis, Dehydration, mild Patient Disposition: Home, Self-Care Time of Disposition Decision: 02:09 Condition: Good Prescriptions / Home Meds: No Action 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 50 mg tablet 150 mg PO DAILY Hold Instructions: while on antibiotics clindamycin phosphate 1 % gel 1 applic TOPICAL DAILY clobetasol 0.05 % shampoo 1 applic TOPICAL .4 times weekly ergocalciferol (vitamin D2) 1,250 mcg (50,000 unit) capsule 1,250 mcg PO .3 times weekly fluocinonide 0.05 % solution 1 applic TOPICAL BID folic acid 1 mg tablet 1 mg PO DAILY hydroxychloroquine 200 mg tablet 200 mg PO BID metoprolol tartrate 25 mg tablet 100 mg PO Q12H prednisone 10 mg tablet 10 mg PO DAILY pregabalin 75 mg capsule 75 mg PO Q8H tacrolimus 0.1 % ointment 1 applic TOPICAL Q12H PRN (Reason: forehead) hyoscyamine sulfate [Levsin] 0.125 mg tablet 0.125 mg PO Q6H PRN (Reason: abdominal pain) Qty: 12 0RF ondansetron 4 mg tablet,disintegrating 4 mg PO Q6H PRN (Reason: nausea and vomiting) Qty: 12 0RF magnesium citrate [Citrate of Magnesia] Solution 296 ml PO DAILY Qty: 296 0RF Rx Instructions: Take half of the bottle with 8 oz of water, take the other half after 1 hour with 8 oz of water metronidazole 500 mg tablet 500 mg PO Q12H 10 Days Qty: 20 0RF Hold Instructions: PCP changed metoprolol tartrate 50 mg tablet Dificid 200 mg tablet Instructions: Dehydration (ED), C. Diff (Clostridioides Difficile) Infection (ED) Stand Alone Forms: Portal Instructions Referrals: SAMSON ENCISO [Primary Care Provider] - 1 week
[2023-07-07] MEDS: KETOROLAC TROMETHAMINE 30 MG/ML VIAL IVP (22:48)
[2023-07-07 22:58] LABS: Basophils Absolute Auto 0.1 10^3/uL (0.0-0.1); Basophils Percent Auto 0.6 % (0.2-2.0); Eosinophils Absolute Auto 0.1 10^3/uL (0.0-0.7); Hematocrit 38.5 % (36.0-48.0); Hemoglobin 12.5 g/dL (12.0-16.0); Immature Granulocytes Abs Auto 0.07 10^3/uL (0.00-0.03); Immature Granulocytes Pct Auto 0.7 % (0.0-0.5); Lymphocytes Absolute Auto 3.3 10^3/uL (1.2-3.8); Lymphocytes Percent Auto 31.4 % (20.5-60.0); Mean Corpuscular HGB Conc 32.5 g/dL (29.9-35.2); Mean Corpuscular Hemoglobin 30.9 pg (26.7-34.0); Mean Corpuscular Volume 95.1 fL (81.0-99.0); Mean Platelet Volume 10.3 fL (9.5-13.5); Monocytes Absolute Auto 0.8 10^3/uL (0.3-0.8); Monocytes Percent Auto 7.5 % (1.7-12.0); Neutrophils Absolute Auto 6.2 10^3/uL (1.4-6.5); Neutrophils Percent Auto 58.8 % (43.0-75.0); Platelet Count 309 10^3/uL (150-450); Red Blood Count 4.05 10^6/uL (4.20-5.40); Red Cell Distribution Width 14.2 % (11.0-15.0); White Blood Count 10.5 10^3/uL (4.0-11.0)
[2023-07-07] MEDS: 0.9 % SODIUM CHLORIDE 1,000 ML 1000 ML IV (23:03)
[2023-07-07 23:14] LABS: Alanine Aminotransferase 62 U/L (14-59); Albumin Globulin Ratio 0.9; Albumin Level 3.3 g/dL (3.4-5.0); Alkaline Phosphatase 53 U/L (46-116); Anion Gap 18.6; Aspartate Amino Transferase 24 U/L (15-37); BUN Creatinine Ratio 13.5; Bilirubin Total 0.3 mg/dL (0.2-1.0); Calcium 8.4 mg/dL (8.5-10.1); Carbon Dioxide 21.8 mmol/L (21.0-32.0); Chloride 109 mmol/L (98-107); Estimated GFR (African America >60 (>=60); Estimated GFR (Non-African Ame >60 (>=60); Globulin 3.5 g/dL; Glucose 109 mg/dL (74-106); Potassium 3.4 mmol/L (3.5-5.1); Sodium 146 mmol/L (136-145); Total Protein 6.8 g/dL (6.4-8.2)
[2023-07-07 23:19] LABS: Lactate/Lactic Acid 2.5 mmol/L (0.4-2.0)
[2023-07-08] VITALS (12 sets, daily range): BP systolic 100–112; BP diastolic 70–73; PULSE 64–77; RESP 9–26; TEMP 36.4; O2SAT 96–100
[2023-07-08] MEDS: 0.9 % SODIUM CHLORIDE 500 ML IV (00:35)
== END 2023-07-08 02:25 | disposition home or self-care (01) ==
PROVIDERS: Emergency Provider Emergency Medicine; PCP Nurse Practitioner Family
DX: E86.0 Dehydration (principal); A04.72 Enterocolitis due to Clostridium difficile, not specified as recurrent; Z79.899 Other long term (current) drug therapy; F17.210 Nicotine dependence, cigarettes, uncomplicated
CPT/HCPCS: 36415; 80053; 83605; 85025; 93005; 96361; 96374; 99284; J1885

== ENCOUNTER 2023-07-13 12:32 | Outpatient (OUT) | payer OTHER, SELFPAY ==
--- OUTSIDE RECORDS SUMMARY | 2023-07-13 12:45 | XMS_ITS | CCD ---
Author Name Unknown Address [address] [place] [address] Organization [facility] Care Team Providers Care Dock Manager Name Role Phone VICTOR MANUEL GUZMAN Referring Unavailable Bettina Jiménez Admitting Unavailable Bettina Jiménez Attending Unavailable Lui Salomon Primary Care Unavailable Unavailable Primary Care Provider UnavailJAREN Stuart Referring Unavailable Britt STOCK OR DELIVERY CLERK.TRUE, Gay Primary Care Provider Mirela Kelsey Unavailable Britt STOCK OR DELIVERY CLERK.Gay BISWAS Primary Care Provider [phone] Madelaine Ferris MD Unavailable Madelaine Ferris MD Primary Care Provider Madelaine Ferris MD Unavailable Madelaine Ferris MD Primary Care Provider [phone] Madelaine Ferris MD Unavailable Madelaine Ferris MD Primary Care Provider [phone] MADELAINE LEYVA Primary Care Unavailable MISC, DR SMITH Consulting Unavailable MISC, DR SMITH Attending Unavailable MISC, DR SMITH Admitting Unavailable MADELAINE GOMEZ Consulting Unavailable ENID Harris, DR GALLEGOS Consulting Unavailable ENID ., DR GALLEGOS Attending Unavailable JOSY ., DR BURKETT Primary Care Unavailable ENID Harris, DR GALLEGOS Admitting Unavailable KRISTINA GARRETT Consulting Unavailable JOSY ., DR BURKETT Primary Care Unavailable JOSY Harris, DR BURKETT Consulting Unavailable JOSY ., DR BURKETT Attending Unavailable JOSY ., DR BURKETT Admitting Unavailable GAY ENCISO Attending Unavailable GAY ENCISO Admitting Unavailable JOSY Harris, DR BURKETT Primary Care Unavailable JOSY Harris, DR BURKETT Consulting Unavailable HOY ., DR BURKETT Primary Care Unavailable HOY ., DR BURKETT Consulting Unavailable HOY ., DR BURKETT Attending Unavailable HOY ., DR BURKETT Admitting Unavailable BLANK, DR DIETZ Consulting Unavailable BLANK, DR DIETZ Attending Unavailable BLANK, DR DIETZ Admitting Unavailable GAY ENCISO Primary Care Unavailable BLANK, DR DIETZ Consulting Unavailable BLANK, DR DIETZ Attending Unavailable BLANK, DR DIETZ Admitting Unavailable HOY ., DR BURKETT Primary Care Unavailable PARMJIT ., MICKY Attending Unavailable PARMJIT ., MICKY Admitting Unavailable MINTURN, DR AURORA Pacheco Consulting Unavailable HOY ., [...] Unavailable HOY ., DR BURKETT Admitting Unavailable MARISSA, DR SAYDA Nelson Consulting Unavailable Charles Mitchell DO Primary Care Provider Mitali STOCK OR DELIVERY CLERK-Michelle BISWAS Unavailable MICHELLE BRITTON Attending Unavailable CHARLES MITCHELL [facility] Primary Care Unavailab MICHELLE BRITTON Referring Unavailable HOY, MADELAINE M Primary Care Unavailable LAST, LYNNE Referring Unavailable HOY, MADELAINE M Primary Care Unavailable LAST, LYNNE Attending Unavailable HOY, MADELAINE M Primary Care Unavailable HOY, MADELAINE M Primary Care Unavailable JOSE NAJERA Attending Unavailable HOY, MADELAINE M Primary Care Unavailable HOY, MADELAINE M Primary Care Unavailable ABJOSE VALDERRAMA Attending Unavailable HOY, MADELAINE M Primary Care [...] Unavailable HOY, MADELAINE M Primary Care Unavailable LAST, LYNNE Referring Unavailable HOY, MADELAINE M Primary Care Unavailable LAST, LYNNE Referring Unavailable WILMER DRIVER Attending Unavailable HOY, MADELAINE M Primary Care Unavailable PATMAYRAA, MISTY Referring Unavailable PATMAYRAA MISTY Attending Unavailable HOY, MADELAINE M Primary [...] Primary Care Unavailable Unavailable Primary Care Provider UnavailSHARRON Edmondson Attending Unavailab JUAN LUIS Mejía Attending Unavailable SHARRON ROGERS Attending Unavailab SHARRON Braden Referring Unavailab SHARRON Braden Referring Unavailab le Allergies Allergy Classification Reported Allergen(s) Allergy Type Date of Onset Reaction(s) Facility Sulfamethoxazole / Trimethoprim (1 source) Sulfamethoxazole / Trimethoprim Drug Allergy [facility] (20 sources) Codeine; Translations: [CODEINE] Drug Allergy Other: See Comments [facility] (20 sources) Latex; Translations: [LATEX] Drug Allergy Rash [facility] (20 sources) Sulfamethoxazole; Translations: [SULFAMETHOXAZOLE] Drug Allergy GI Upset [facility] (20 sources) Clindamycin; Translations: [CLINDAMYCIN] Drug Allergy Unknown [facility] (4 sources) Sulfamethoxazole / Trimethoprim Drug Allergy lymph swelling [facility] Other (20 sources) Doxycycline; Translations: [DOXYCYCLINE] Drug Allergy Other: See Comments, Other, Unknown [facility] (20 sources) Sulfamethoxazole / Trimethoprim; Translations: [SULFAMETHOXAZOLE-T RIMETHOPRIM] Drug Allergy Swelling, Other [facility] (20 sources) Trimethoprim; Translations: [TRIMETHOPRIM] Drug Allergy Other: See Comments [facility] (1 source) Latex Drug allergy (disorder) [facility] (1 source) Sulfamethoxazole / Trimethoprim Drug Allergy [facility] (3 sources) Sulfamethoxazole Allergy to substance [facility] (2 sources) Latex Propensity to adverse reactions Rash [facility] Medications Current Medications Medication Drug Class(es) Dates Sig (Normalized) Sig (Original) acetaminophen 325 mg oral tablet (20 sources) acetaminophen (T ylenol) 325 MG tablet every 4 (four) hours. 0 Active take 2 tablets by mo [facility] every eight hours as needed acetaminophen (Tylenol) [...] Orally every 12 hrs for 7 days 29 May, 2021 Active amoxicillin 875 mg / clavulanate 125 [...] other organ involvement (HCC) , 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 jail 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 TAKE 3 TABLETS BY MOUTH DAILY WITH FOOD. HOLD IF ON ANTIBIOTICS OR ILL. 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 TAKE 1 TABLET BY KRISTAL EVERY DAY hyoscyamine sulfate 0.125 mg oral [...] 0 Active take 3 tablets by mo [facility] every eight hours as needed ibuprofen 200 [...] Active Start: 05-25-2022 take 1 tablet by kristal twice daily metoprolol tartrate, short acting, (LOPRESSOR) [...] Start: 01-19-2022 take 1 capsule by mo [facility] once daily naltrexone capsule 1 mg TAKE ONE CAPSULE BY MOUTH DAILY 0 01/19/2022 Active Comment on above: TAKE ONE CAPSULE BY MOUTH DAILY nitroglycerin 0.4 mg sublingual tablet (20 sources) Nitrate Vasodilator Start: End: nitroglycerin sublingual (NITROQUICK) 0.4 mg SL tablet Dissolve 0.4 mg under the tongue. 0 10/07/2020 07/25/2022 Discontinued Comment on above: Dissolve 0.4 mg unde r the tongue. nystatin 614677 unt/ml topical cream (3 sources) Polyene Antifungal [...] on above: TAKE 1 CAPSULE BY MO UTH 3 TIMES A DAY FOR 30 DAYS TAKE 1 CAPSULE BY MO UTH 3 TIMES A DAY take 1 capsule by mo uth three times a day 1000 ml sodium chloride 9 mg/ml injection (1 source) Start: 10-08-19 0.9 % sodium chloride infusion thiamine 100 mg oral tablet (4 sources) Start: 06-01-19 End: 05-31-19 take 1 tablet by mouth [...] above: Take 1 tablet by kristal th two times a day. triamcinolone acetonide 0.25 mg/ml topical lotion (4 sources) Corticosteroid Start: 06-23-19 Triamcinolone Acetonide 0.025 % lotion 1 application. 0 06/23/2022 Active Vitamin D 50 MCG (1999) (4 sources) take 1 tablet by mouth every week Vitamin D 50 MCG (1999) 1 tablet Orally weekly Active Completed/Discontinued Medications [...] Norepinephrine Reuptake Inhibitor Start: 10-30-19 End: 04-26-20 take 1 capsule by mouth once daily [...] Comment on above: Take 1 capsule by [facility] once daily. famotidine 20 mg oral tablet [...] (3 sources) Proton Pump Inhibitor Start: End: 022 take 1 capsule by mouth twice daily [...] Pyrexia of unknown origin; Translations: [Fever, unspecified] 12-04-2023 Episodic Headache; including migraine (3 sources) Headache; [...] sources) Drug therapy status; Translations: [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 jail 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] Episodic Other aftercare (1 source) Polypharmacy ; Translations: [Other jail (current) drug therapy] Episodic Other circulatory disease [...] [Obesity, Class III, BMI 40-49.9 (morbid obesity) (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) drug therapy; Translations: [OTH DETENTION 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 THERAPY] Onset: 03-23-2022 Episodic Other aftercare (19 sources) Long-term 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 systemic steroid; Translations: [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 accountant (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 Performed By: #### 1 989-3 ####[facility] LABCLIA [id number] [place] [address] [place] CBC panel Auto (Bld)on 06-10 Erythrocyte distribution width (RBC) [Ratio] 14.5 % Normal 11.5-15.0 [facility] Comment on above: Order Comment: Speci men Type: BLOOD SPECIMENOrdering Facility: [facility] Address: [address] [place] [address] Performed By: #### 5 8410-2 ####[facility] LABCLIA [id number] [place] [address] Hematocrit (Bld) [Volume fraction] 43.1 % Normal 36.0-46.0 [facility] Comment on above: Order Comment: Speci men Type: BLOOD SPECIMENOrdering Facility: [facility] Address: [address] [place] [address] Performed By: #### 5 8410-2 ####[facility] LABCLIA [id number] [place] [address] Hemoglobin (Bld) [Mass/Vol] 13.9 g/dL Normal 11.5-15.5 [facility] Comment on above: Order Comment: Speci men Type: BLOOD SPECIMENOrdering Facility: [facility] Address: [address] [place] [address] Performed By: #### 5 8410-2 ####[facility] LABCLIA [id number] [place] [address] MCH (RBC) [Entitic mass] 30.6 pg Normal 26.0-34.0 [facility] Comment on above: Order Comment: Speci men Type: BLOOD SPECIMENOrdering Facility: [facility] Address: [address] [place] [address] Performed By: #### 5 8410-2 ####[facility] LABIA [id number] [place] [address] MCHC (RBC) [Mass/Vol] 32.3 g/dL Normal 30.5-36.0 [facility] Comment on above: Order Comment: Speci men Type: BLOOD SPECIMENOrdering Facility: [facility] Address: [address] [place] [address] Performed By: #### 5 8410-2 ####[facility] LABCLIA [id number] [place] [address] MCV (RBC) [Entitic vol] 94.9 fL Normal 80.0-100.0 [facility] Comment on above: Order Comment: Speci men Type: BLOOD SPECIMENOrdering Facility: [facility] Address: [address] [place] [address] Performed By: #### 5 8410-2 ####[facility] LABCLIA [id number] [place] [address] Nucleated RBC (Bld) [#/Vol] 10*3/uL Normal <0.01 [facility] Comment on above: Order Comment: Speci men Type: BLOOD SPECIMENOrdering Facility: [facility] Address: [address] [place] [address] Performed By: #### 5 8410-2 ####[facility] LABCLIA [id number] [place] [address] Platelet mean volume (Bld) [Entitic vol] 9.5 fL Normal 9.0-12.7 [facility] Comment on above: Order Comment: Speci men Type: BLOOD SPECIMENOrdering Facility: [facility] Address: [address] [place] [address] Performed By: #### 5 8410-2 ####[facility] LABCLIA [id number] [place] [address] Platelets (Bld) [#/Vol] 320 10*3/uL Normal 150-400 [facility] Comment on above: Order Comment: Speci men Type: BLOOD SPECIMENOrdering Facility: [facility] Address: [address] [place] [address] Performed By: #### 5 8410-2 ####[facility] LABCLIA [id number] [place] [address] RBC (Bld) [#/Vol] 4.54 10*6/uL Normal 3.90-5.20 [facility] Comment on above: Order Comment: Speci men Type: BLOOD SPECIMENOrdering Facility: [facility] Address: [address] [place] [address] Performed By: #### 5 8410-2 ####[facility] LABCLIA [id number] [place] [address] WBC (Bld) [#/Vol] 15.15 10*3/uL High 3.70-11.00 [facility] Comment on above: Order Comment: Speci men Type: BLOOD SPECIMENOrdering Facility: [facility] Address: [address] [place] [address] Performed By: #### 5 8410-2 ####[facility] LABCLIA [id number] [place] [address] CNNURSEon 06-10-2023 CNNURSE Normal [facility] CNOVSPon 06-10-2023 CNOVSP Normal [facility] CRP SerPl-mCncon 06-10-2023 CRP [Mass/Vol] mg/L Normal <0.9 [facility] Comment on above: Order Comment: Speci men Type: BLOOD SPECIMENOrdering Facility: [facility] Address: [address] [place] [address] Performed By: #### 1 988-5 ####[facility] LABCLIA [id number] [address] [address] [facility] Comprehensive metabolic 2000 panelon 06-10-2023 Albumin [Mass/Vol] 4.1 g/dL Normal 3.9-4.9 [facility] Comment on above: Order Comment: Speci men Type: BLOOD SPECIMENOrdering Facility: [facility] Address: [address] [place] [address] Performed By: #### 2 4323-8 ####[facility] LABCLIA [id number] [place] [address] ALP [Catalytic activity/Vol] 72 U/L Normal 34-123 [facility] Comment on above: Order Comment: Speci men Type: BLOOD SPECIMENOrdering Facility: [facility] Address: [address] [place] [address] Performed By: #### 2 4323-8 ####[facility] LABCLIA [id number] [place] [address] ALT [Catalytic activity/Vol] 22 U/L Normal 7-38 [facility] Comment on above: Order Comment: Speci men Type: BLOOD SPECIMENOrdering Facility: [facility] Address: [address] [place] [address] Performed By: #### 2 4323-8 ####[facility] LABCLIA [id number] [place] [address] Anion gap [Moles/Vol] 10 mmol/L Normal 9-18 [facility] Comment on above: Order Comment: Speci men Type: BLOOD SPECIMENOrdering Facility: [facility] Address: [address] [place] [address] Performed By: #### 2 4323-8 ####[facility] LABCLIA [id number] [place] [address] AST [Catalytic activity/Vol] 9 U/L Low 13-35 [facility] Comment on above: Order Comment: Speci men Type: BLOOD SPECIMENOrdering Facility: [facility] Address: [address] [place] [address] Performed By: #### 2 4323-8 ####[facility] LABCLIA [id number] [place] [address] Bilirubin [Mass/Vol] 0.2 mg/dL Normal 0.2-1.3 [facility] Comment on above: Order Comment: Speci men Type: BLOOD SPECIMENOrdering Facility: [facility] Address: [address] [place] [address] Performed By: #### 2 4323-8 ####[facility] LABCLIA [id number] [place] [address] Calcium [Mass/Vol] 9.8 mg/dL Normal 8.5-10.2 [facility] Comment on above: Order Comment: Speci men Type: BLOOD SPECIMENOrdering Facility: [facility] Address: [address] [place] [address] Performed By: #### 2 4323-8 ####[facility] LABCLIA [id number] [place] [address] Chloride [Moles/Vol] 107 mmol/L High 97-105 [facility] Comment on above: Order Comment: Speci men Type: BLOOD SPECIMENOrdering Facility: [facility] Address: [address] [place] [address] Performed By: #### 2 4323-8 ####[facility] LABCLIA [id number] [place] [address] CO2 [Moles/Vol] 24 mmol/L Normal 22-30 [facility] Comment on above: Order Comment: Speci men Type: BLOOD SPECIMENOrdering Facility: [facility] Address: [address] [place] [address] Performed By: #### 2 4323-8 ####[facility] LABCLIA [id number] [place] [address] Creatinine [Mass/Vol] 0.80 mg/dL Normal 0.58-0.96 [facility] Comment on above: Order Comment: Speci men Type: BLOOD SPECIMENOrdering Facility: [facility] Address: [address] [place] [address] Performed By: #### 2 4323-8 ####[facility] LABCLIA [id number] [place] [address] Creatinine and Glomerular filtration rate.predicted panel (S/P/Bld) 94 mL/min/1.73m??? Normal >=60 [facility] Comment on above: Order Comment: Speci men Type: BLOOD SPECIMENOrdering Facility: [facility] Address: [address] [place] [address] Result Comment: Erin mated Glomerular Filtration Rate [...] actual GFR. Performed By: #### 2 4323-8 ####[facility] LABCLIA [id number] [place] [address] Glucose [Mass/Vol] 98 mg/dL Normal 74-99 [facility] Comment on above: Order Comment: Speci men Type: BLOOD SPECIMENOrdering Facility: [facility] Address: [address] [place] [address] Result Comment: The [place] [employer] Association (ADA) provides guidance for cutoff [...] Standards of Medical Care in Diabetes 2016, [place] [employer]. Diabetes Care. 2016.39(Suppl 1). Performed By: #### 2 4323-8 ####[facility] LABCLIA [id number] [place] [address] Potassium [Moles/Vol] 3.6 mmol/L Low 3.7-5.1 [facility] Comment on above: Order Comment: Speci men Type: BLOOD SPECIMENOrdering Facility: [facility] Address: [address] [place] [address] Performed By: #### 2 4323-8 ####[facility] LABCLIA [id number] [place] [address] Protein [Mass/Vol] 7.0 g/dL Normal 6.3-8.0 [facility] Comment on above: Order Comment: Speci men Type: BLOOD SPECIMENOrdering Facility: [facility] Address: [address] [place] [address] Performed By: #### 2 4323-8 ####[facility] LABCLIA [id number] [place] [address] Sodium [Moles/Vol] 141 mmol/L Normal 136-144 [facility] Comment on above: Order Comment: Speci men Type: BLOOD SPECIMENOrdering Facility: [facility] Address: [address] [place] [address] Performed By: #### 2 4323-8 ####[facility] LABCLIA [id number] [place] [address] Urea nitrogen [Mass/Vol] 17 mg/dL Normal 7-21 [facility] Comment on above: Order Comment: Speci men Type: BLOOD SPECIMENOrdering Facility: [facility] Address: [address] [place] [address] Performed By: #### 2 4323-8 ####[facility] LABCLIA [id number] [place] [id number] ESR Westergren method (Bld) [Velocity]on 06-10-2023 ESR (Bld) [Velocity] 28 mm/h High 0-20 [facility] Comment on above: Order Comment: Speci men Type: BLOOD SPECIMENOrdering Facility: [facility] Address: [address] [place] [address] Performed By: #### 4 537-7 ####[facility] LABCLIA [id number] [place] [address] [place] CBC W Auto Differential pane l (Bld)on 06-03-2023 Basophils (Bld) [#/Vol] 0.05 10*3/uL Normal <0.11 [facility] Comment on above: Order Comment: Speci men Type: BLOOD SPECIMENOrdering Facility: [facility] Address: [address] [place] [address] Performed By: #### 5 7021-8 ####[facility] LABCLIA [id number] [place] [id number] Basophils/100 WBC (Bld) 0.4 % Normal [facility] Comment on above: Order Comment: Speci men Type: BLOOD SPECIMENOrdering Facility: [facility] Address: [address] [place] [address] Performed By: #### 5 7021-8 ####[facility] LABCLIA [id number] [place] [address] Differential cell count method Nom (Bld) Auto Normal [facility] Comment on above: Order Comment: Speci men Type: BLOOD SPECIMENOrdering Facility: [facility] Address: [address] [place] [address] Performed By: #### 5 7021-8 ####[facility] LABCLIA [id number] [place] [address] Eosinophils (Bld) [#/Vol] 0.14 10*3/uL Normal <0.46 [facility] Comment on above: Order Comment: Speci men Type: BLOOD SPECIMENOrdering Facility: [facility] Address: [address] [place] [address] Performed By: #### 5 7021-8 ####[facility] LABCLIA [id number] [place] [address] Eosinophils/100 WBC (Bld) 1.1 % Normal [facility] Comment on above: Order Comment: Speci men Type: BLOOD SPECIMENOrdering Facility: [facility] Address: [address] [place] [address] Performed By: #### 5 7021-8 ####[facility] LABCLIA [id number] [place] [address] Erythrocyte distribution width (RBC) [Ratio] 14.5 % Normal 11.5-15.0 [facility] Comment on above: Order Comment: Speci men Type: BLOOD SPECIMENOrdering Facility: [facility] Address: [address] [place] [address] Performed By: #### 5 7021-8 ####[facility] LABIA [id number] [place] [address] Hematocrit (Bld) [Volume fraction] 40.5 % Normal 36.0-46.0 [facility] Comment on above: Order Comment: Speci men Type: BLOOD SPECIMENOrdering Facility: [facility] Address: [address] [place] [address] Performed By: #### 5 7021-8 ####[facility] LABCLIA [id number] [place] [address] Hemoglobin (Bld) [Mass/Vol] 13.1 g/dL Normal 11.5-15.5 [facility] Comment on above: Order Comment: Speci men Type: BLOOD SPECIMENOrdering Facility: [facility] Address: [address] [place] [address] Performed By: #### 5 7021-8 ####[facility] LABCLIA [id number] [place] [address] Immature granulocytes (Bld) [#/Vol] 0.20 10*3/uL High <0.10 [facility] Comment on above: Order Comment: Speci men Type: BLOOD SPECIMENOrdering Facility: [facility] Address: [address] [place] [address] Performed By: #### 5 7021-8 ####[facility] LABCLIA [id number] [place] [address] Immature granulocytes/100 WBC (Bld) 1.6 % Normal [facility] Comment on above: Order Comment: Speci men Type: BLOOD SPECIMENOrdering Facility: [facility] Address: [address] [place] [address] Performed By: #### 5 7021-8 ####[facility] LABCLIA [id number] [place] [address] Lymphocytes (Bld) [#/Vol] 4.13 10*3/uL High 1.00-4.00 [facility] Comment on above: Order Comment: Speci men Type: BLOOD SPECIMENOrdering Facility: [facility] Address: [address] [place] [address] Performed By: #### 5 7021-8 ####[facility] LABCLIA [id number] [place] [address] Lymphocytes/100 WBC (Bld) 32.1 % Normal [facility] Comment on above: Order Comment: Speci men Type: BLOOD SPECIMENOrdering Facility: [facility] Address: [address] [place] [address] Performed By: #### 5 7021-8 ####[facility] LABIA [id number] [place] [address] MCH (RBC) [Entitic mass] 30.8 pg Normal 26.0-34.0 [facility] Comment on above: Order Comment: Speci men Type: BLOOD SPECIMENOrdering Facility: [facility] Address: [address] [place] [address] Performed By: #### 5 7021-8 ####[facility] LABIA [id number] [place] [address] MCHC (RBC) [Mass/Vol] 32.3 g/dL Normal 30.5-36.0 [facility] Comment on above: Order Comment: Speci men Type: BLOOD SPECIMENOrdering Facility: [facility] Address: [address] [place] [address] Performed By: #### 5 7021-8 ####[facility] LABIA [id number] [place] [address] MCV (RBC) [Entitic vol] 95.1 fL Normal 80.0-100.0 [facility] Comment on above: Order Comment: Speci men Type: BLOOD SPECIMENOrdering Facility: [facility] Address: [address] [place] [address] Performed By: #### 5 7021-8 ####[facility] LABIA [id number] [place] [address] Monocytes (Bld) [#/Vol] 0.79 10*3/uL Normal <0.87 [facility] Comment on above: Order Comment: Speci men Type: BLOOD SPECIMENOrdering Facility: [facility] Address: [address] [place] [address] Performed By: #### 5 7021-8 ####[facility] LABCLIA [id number] [place] [address] Monocytes/100 WBC (Bld) 6.1 % Normal [facility] Comment on above: Order Comment: Speci men Type: BLOOD SPECIMENOrdering Facility: [facility] Address: [address] [place] [address] Performed By: #### 5 7021-8 ####[facility] LABCLIA [id number] [place] [address] Neutrophils (Bld) [#/Vol] 7.56 10*3/uL High 1.45-7.50 [facility] Comment on above: Order Comment: Speci men Type: BLOOD SPECIMENOrdering Facility: [facility] Address: [address] [place] [address] Performed By: #### 5 7021-8 ####[facility] LABCLIA [id number] [place] [address] Neutrophils/100 WBC (Bld) 58.7 % Normal [facility] Comment on above: Order Comment: Speci men Type: BLOOD SPECIMENOrdering Facility: [facility] Address: [address] [place] [address] Performed By: #### 5 7021-8 ####[facility] LABCLIA [id number] [place] [address] Nucleated RBC (Bld) [#/Vol] 10*3/uL Normal <0.01 [facility] Comment on above: Order Comment: Speci men Type: BLOOD SPECIMENOrdering Facility: [facility] Address: [address] [place] [address] Performed By: #### 5 7021-8 ####[facility] LABIA [id number] [place] [address] Nucleated RBC/100 WBC (Bld) [Ratio] 0.0 /100 WBC Normal [facility] Comment on above: Order Comment: Speci men Type: BLOOD SPECIMENOrdering Facility: [facility] Address: [address] [place] [address] Performed By: #### 5 7021-8 ####[facility] LABCLIA [id number] [place] [address] Platelet mean volume (Bld) [Entitic vol] 9.7 fL Normal 9.0-12.7 [facility] Comment on above: Order Comment: Speci men Type: BLOOD SPECIMENOrdering Facility: [facility] Address: [address] [place] [address] Performed By: #### 5 7021-8 ####[facility] LABCLIA [id number] [place] [address] Platelets (Bld) [#/Vol] 261 10*3/uL Normal 150-400 [facility] Comment on above: Order Comment: Speci men Type: BLOOD SPECIMENOrdering Facility: [facility] Address: [address] [place] [address] Performed By: #### 5 7021-8 ####[facility] LABCLIA [id number] [place] [address] RBC (Bld) [#/Vol] 4.26 10*6/uL Normal 3.90-5.20 [facility] Comment on above: Order Comment: Speci men Type: BLOOD SPECIMENOrdering Facility: [facility] Address: [address] [place] [address] Performed By: #### 5 7021-8 ####[facility] LABCLIA [id number] [place] [address] WBC (Bld) [#/Vol] 12.87 10*3/uL High 3.70-11.00 [facility] Comment on above: Order Comment: Speci men Type: BLOOD SPECIMENOrdering Facility: [facility] Address: [address] [place] [address] Performed By: #### 5 7021-8 ####[facility] LABCLIA [id number] [place] [address] Comprehensive metabolic 2000 panelon 06-03-2023 Albumin [Mass/Vol] 4.0 g/dL Normal 3.9-4.9 [facility] Comment on above: Order Comment: Speci men Type: BLOOD SPECIMENOrdering Facility: [facility] Address: [address] [place] [address] Performed By: #### 2 4323-8 ####[facility] LABCLIA [id number] [place] [address] ALP [Catalytic activity/Vol] 73 U/L Normal 34-123 [facility] Comment on above: Order Comment: Speci men Type: BLOOD SPECIMENOrdering Facility: [facility] Address: [address] [place] [address] Performed By: #### 2 4323-8 ####[facility] LABCLIA [id number] [place] [address] ALT [Catalytic activity/Vol] 21 U/L Normal 7-38 [facility] Comment on above: Order Comment: Speci men Type: BLOOD SPECIMENOrdering Facility: [facility] Address: [address] [place] [address] Performed By: #### 2 4323-8 ####[facility] LABCLIA [id number] [place] [address] Anion gap [Moles/Vol] 10 mmol/L Normal 9-18 [facility] Comment on above: Order Comment: Speci men Type: BLOOD SPECIMENOrdering Facility: [facility] Address: [address] [place] [address] Performed By: #### 2 4323-8 ####[facility] LABCLIA [id number] [place] [address] AST [Catalytic activity/Vol] 10 U/L Low 13-35 [facility] Comment on above: Order Comment: Speci men Type: BLOOD SPECIMENOrdering Facility: [facility] Address: [address] [place] [address] Performed By: #### 2 4323-8 ####[facility] LABCLIA [id number] [place] [address] Bilirubin [Mass/Vol] 0.2 mg/dL Normal 0.2-1.3 [facility] Comment on above: Order Comment: Speci men Type: BLOOD SPECIMENOrdering Facility: [facility] Address: [address] [place] [address] Performed By: #### 2 4323-8 ####[facility] LABCLIA [id number] [place] [address] Calcium [Mass/Vol] 9.6 mg/dL Normal 8.5-10.2 [facility] Comment on above: Order Comment: Speci men Type: BLOOD SPECIMENOrdering Facility: [facility] Address: [address] [place] [address] Performed By: #### 2 4323-8 ####[facility] LABCLIA [id number] [place] [address] Chloride [Moles/Vol] 108 mmol/L High 97-105 [facility] Comment on above: Order Comment: Speci men Type: BLOOD SPECIMENOrdering Facility: [facility] Address: [address] [place] [address] Performed By: #### 2 4323-8 ####[facility] LABCLIA [id number] [place] [address] CO2 [Moles/Vol] 24 mmol/L Normal 22-30 [facility] Comment on above: Order Comment: Speci men Type: BLOOD SPECIMENOrdering Facility: [facility] Address: [address] [place] [address] Performed By: #### 2 4323-8 ####[facility] LABCLIA [id number] [place] [address] Creatinine [Mass/Vol] 0.70 mg/dL Normal 0.58-0.96 [facility] Comment on above: Order Comment: Speci men Type: BLOOD SPECIMENOrdering Facility: [facility] Address: [address] [place] [address] Performed By: #### 2 4323-8 ####[facility] LABCLIA [id number] [place] [address] Creatinine and Glomerular filtration rate.predicted panel (S/P/Bld) 111 mL/min/1.73m??? Normal >=60 [facility] Comment on above: Order Comment: Speci men Type: BLOOD SPECIMENOrdering Facility: [facility] Address: [address] [place] [address] Result Comment: Erin mated Glomerular Filtration Rate [...] actual GFR. Performed By: #### 2 4323-8 ####[facility] LABCLIA [id number] [place] [address] Glucose [Mass/Vol] 106 mg/dL High 74-99 [facility] Comment on above: Order Comment: Speci men Type: BLOOD SPECIMENOrdering Facility: [facility] Address: [address] [place] [address] Result Comment: The [place] [employer] (ADA) provides guidance for cutoff [...] Standards of Medical Care in Diabetes 2016, [place] [employer]. Diabetes Care. 2016.39(Suppl 1). Performed By: #### 2 4323-8 ####[facility] LABCLIA [id number] [place] [address] Potassium [Moles/Vol] 4.0 mmol/L Normal 3.7-5.1 [facility] Comment on above: Order Comment: Speci men Type: BLOOD SPECIMENOrdering Facility: [facility] Address: [address] [place] [address] Performed By: #### 2 4323-8 ####[facility] LABCLIA [id number] [place] [address] Protein [Mass/Vol] 6.8 g/dL Normal 6.3-8.0 [facility] Comment on above: Order Comment: Speci men Type: BLOOD SPECIMENOrdering Facility: [facility] Address: [address] [place] [address] Performed By: #### 2 4323-8 ####[facility] LABCLIA [id number] [place] [address] Sodium [Moles/Vol] 142 mmol/L Normal 136-144 [facility] Comment on above: Order Comment: Speci men Type: BLOOD SPECIMENOrdering Facility: [facility] Address: [address] [place] [address] Performed By: #### 2 4323-8 ####[facility] LABCLIA [id number] [place] [address] Urea nitrogen [Mass/Vol] 12 mg/dL Normal 7-21 [facility] Comment on above: Order Comment: Speci men Type: BLOOD SPECIMENOrdering Facility: [facility] Address: [address] [place] [address] Performed By: #### 2 4323-8 ####[facility] LABIA [id number] [place] [address] ESR Westergren method (Bld) [Velocity]on 06-03-2023 ESR (Bld) [Velocity] 35 mm/h High 0-20 [facility] Comment on above: Order Comment: Speci men Type: BLOOD SPECIMENOrdering Facility: [facility] Address: [address] [place] [address] Performed By: #### 4 537-7 ####[facility] LABCLIA [id number] [place] [address] [place] Ferritin SerPl-mCncon 2023 Ferritin [Mass/Vol] 23.4 ng/mL Normal 14.7-205.1 [facility] Comment on above: Order Comment: Speci men Type: BLOOD SPECIMENOrdering Facility: [facility] Address: [address] [place] [address] Performed By: #### 5 0190-8, 2132-01, 2275-08, 2283-12 ####[facility] LABCLIA [id number] [place] [address] [place] Folate SerPl-mCncon 06-03-19 Folate [Mass/Vol] 8.2 ng/mL Normal >4.7 [facility] Comment on above: Order Comment: Speci men Type: BLOOD SPECIMENOrdering Facility: [facility] Address: [address] [place] [address] Performed By: #### 5 0190-8, 2132-01, 2275-08, 2283-12 ####[facility] LABCLIA [id number] [place] [address] [place] Iron and Iron binding capaci ty panelon 06-03-2023 Iron [Mass/Vol] 67 ug/dL Normal 41-186 [facility] Comment on above: Order Comment: Speci men Type: BLOOD SPECIMENOrdering Facility: [facility] Address: [address] [place] [address] Performed By: #### 5 0190-8, 2132-01, 2275-08, 2283-12 ####[facility] LABCLIA [id number] [place] [address] [place] Iron binding capacity [Mass/Vol] 395 ug/dL High 232-386 [facility] Comment on above: Order Comment: Speci men Type: BLOOD SPECIMENOrdering Facility: [facility] Address: [address] [place] [address] Performed By: #### 5 0190-8, 2132-01, 2275-08, 2283-12 ####[facility] LABCLIA [id number] [place] [address] [place] Iron/TIBC [Molar ratio] 17.0 % Normal 15.0-57.0 [facility] Comment on above: Order Comment: Speci men Type: BLOOD SPECIMENOrdering Facility: [facility] Address: [place] [address] Performed By: #### 5 0190-8, 2132-01, 2275-08, 2283-12 ####[facility] LABIA [id number] [place] [address] [place] Vit B12 [facility] 024 Cobalamin (Vitamin B12) [Mass/Vol] 428 pg/mL Normal 232-1245 [facility] Comment on above: Order Comment: Speci men Type: BLOOD SPECIMENOrdering Facility: [facility] Address: [place] [address] Performed By: #### 5 0190-8, 2132-01, 2275-08, 2283-12 ####[facility] LABIA [id number] [place] [id number] [place] CNNURSEon 05-10-2023 CNNURSE Normal [facility] XR CERVICAL SPINE COMPLETE 4 -5 VIEWSon [...] Normal Not Available CNPNon 04-22-2023 CNPN Normal [facility] CNNURSEon 04-16-2023 CNNURSE Normal [facility] CNOVSPon 04-16-2023 CNOVSP Normal [facility] CBC W Auto Differential pane l (Bld)on 04-09-2023 Basophils (Bld) [#/Vol] 0.05 10*3/uL Normal <0.11 [facility] Comment on above: Order Comment: Speci men Type: BLOOD SPECIMENOrdering Facility: [facility] Address: [place] [address] Performed By: #### 5 7021-8 ####[facility] LABCLIA [id number] [place] [address] Basophils/100 WBC (Bld) 0.5 % Normal [facility] Comment on above: Order Comment: Speci men Type: BLOOD SPECIMENOrdering Facility: [facility] Address: [address] [place] [address] Performed By: #### 5 7021-8 ####[facility] LABCLIA [id number] [place] [address] Differential cell count method Nom (Bld) Auto Normal [facility] Comment on above: Order Comment: Speci men Type: BLOOD SPECIMENOrdering Facility: [facility] Address: [address] [place] [address] Performed By: #### 5 7021-8 ####[facility] LABCLIA [id number] [place] [address] Eosinophils (Bld) [#/Vol] 0.09 10*3/uL Normal <0.46 [facility] Comment on above: Order Comment: Speci men Type: BLOOD SPECIMENOrdering Facility: [facility] Address: [address] [place] [address] Performed By: #### 5 7021-8 ####[facility] LABCLIA [id number] [place] [address] Eosinophils/100 WBC (Bld) 0.9 % Normal [facility] Comment on above: Order Comment: Speci men Type: BLOOD SPECIMENOrdering Facility: [facility] Address: [address] [place] [address] Performed By: #### 5 7021-8 ####[facility] LABCLIA [id number] [place] [address] Erythrocyte distribution width (RBC) [Ratio] 14.8 % Normal 11.5-15.0 [facility] Comment on above: Order Comment: Speci men Type: BLOOD SPECIMENOrdering Facility: [facility] Address: [address] [place] [address] Performed By: #### 5 7021-8 ####[facility] LABCLIA [id number] [place] [address] Hematocrit (Bld) [Volume fraction] 41.1 % Normal 36.0-46.0 [facility] Comment on above: Order Comment: Speci men Type: BLOOD SPECIMENOrdering Facility: [facility] Address: [address] [place] [address] Performed By: #### 5 7021-8 ####[facility] LABCLIA [id number] [place] [address] Hemoglobin (Bld) [Mass/Vol] 13.1 g/dL Normal 11.5-15.5 [facility] Comment on above: Order Comment: Speci men Type: BLOOD SPECIMENOrdering Facility: [facility] Address: [address] [place] [address] Performed By: #### 5 7021-8 ####[facility] LABCLIA [id number] [place] [address] Immature granulocytes (Bld) [#/Vol] 0.05 10*3/uL Normal <0.10 [facility] Comment on above: Order Comment: Speci men Type: BLOOD SPECIMENOrdering Facility: [facility] Address: [address] [place] [address] Performed By: #### 5 7021-8 ####[facility] LABCLIA [id number] [place] [address] Immature granulocytes/100 WBC (Bld) 0.5 % Normal [facility] Comment on above: Order Comment: Speci men Type: BLOOD SPECIMENOrdering Facility: [facility] Address: [address] [place] [address] Performed By: #### 5 7021-8 ####[facility] LABCLIA [id number] [place] [address] Lymphocytes (Bld) [#/Vol] 2.90 10*3/uL Normal 1.00-4.00 [facility] Comment on above: Order Comment: Speci men Type: BLOOD SPECIMENOrdering Facility: [facility] Address: [address] [place] [address] Performed By: #### 5 7021-8 ####[facility] LABCLIA [id number] [place] [address] Lymphocytes/100 WBC (Bld) 28.9 % Normal [facility] Comment on above: Order Comment: Speci men Type: BLOOD SPECIMENOrdering Facility: [facility] Address: [address] [place] [address] Performed By: #### 5 7021-8 ####[facility] LABCLIA [id number] [place] [address] MCH (RBC) [Entitic mass] 30.5 pg Normal 26.0-34.0 [facility] Comment on above: Order Comment: Speci men Type: BLOOD SPECIMENOrdering Facility: [facility] Address: [address] [place] [address] Performed By: #### 5 7021-8 ####[facility] LABCLIA [id number] [place] [address] MCHC (RBC) [Mass/Vol] 31.9 g/dL Normal 30.5-36.0 [facility] Comment on above: Order Comment: Speci men Type: BLOOD SPECIMENOrdering Facility: [facility] Address: [address] [place] [address] Performed By: #### 5 7021-8 ####[facility] LABCLIA [id number] [place] [address] MCV (RBC) [Entitic vol] 95.8 fL Normal 80.0-100.0 [facility] Comment on above: Order Comment: Speci men Type: BLOOD SPECIMENOrdering Facility: [facility] Address: [address] [place] [address] Performed By: #### 5 7021-8 ####[facility] LABCLIA [id number] [place] [address] Monocytes (Bld) [#/Vol] 0.54 10*3/uL Normal <0.87 [facility] Comment on above: Order Comment: Speci men Type: BLOOD SPECIMENOrdering Facility: [facility] Address: [address] [place] [address] Performed By: #### 5 7021-8 ####[facility] LABCLIA [id number] [place] [address] Monocytes/100 WBC (Bld) 5.4 % Normal [facility] Comment on above: Order Comment: Speci men Type: BLOOD SPECIMENOrdering Facility: [facility] Address: [address] [place] [address] Performed By: #### 5 7021-8 ####[facility] LABCLIA [id number] [place] [address] Neutrophils (Bld) [#/Vol] 6.41 10*3/uL Normal 1.45-7.50 [facility] Comment on above: Order Comment: Speci men Type: BLOOD SPECIMENOrdering Facility: [facility] Address: [address] [place] [address] Performed By: #### 5 7021-8 ####[facility] LABCLIA [id number] [place] [address] Neutrophils/100 WBC (Bld) 63.8 % Normal [facility] Comment on above: Order Comment: Speci men Type: BLOOD SPECIMENOrdering Facility: [facility] Address: [address] [place] [address] Performed By: #### 5 7021-8 ####[facility] LABCLIA [id number] [place] [address] Nucleated RBC (Bld) [#/Vol] 10*3/uL Normal <0.01 [facility] Comment on above: Order Comment: Speci men Type: BLOOD SPECIMENOrdering Facility: [facility] Address: [address] [place] [address] Performed By: #### 5 7021-8 ####[facility] LABCLIA [id number] [place] [address] Nucleated RBC/100 WBC (Bld) [Ratio] 0.0 /100 WBC Normal [facility] Comment on above: Order Comment: Speci men Type: BLOOD SPECIMENOrdering Facility: [facility] Address: [address] [place] [address] Performed By: #### 5 7021-8 ####[facility] LABCLIA [id number] [place] [address] Platelet mean volume (Bld) [Entitic vol] 9.4 fL Normal 9.0-12.7 [facility] Comment on above: Order Comment: Speci men Type: BLOOD SPECIMENOrdering Facility: [facility] Address: [address] [place] [address] Performed By: #### 5 7021-8 ####[facility] LABCLIA [id number] [place] [address] Platelets (Bld) [#/Vol] 290 10*3/uL Normal 150-400 [facility] Comment on above: Order Comment: Speci men Type: BLOOD SPECIMENOrdering Facility: [facility] Address: [address] [place] [address] Performed By: #### 5 7021-8 ####[facility] LABIA [id number] [place] [address] RBC (Bld) [#/Vol] 4.29 10*6/uL Normal 3.90-5.20 [facility] Comment on above: Order Comment: Speci men Type: BLOOD SPECIMENOrdering Facility: [facility] Address: [address] [place] [address] Performed By: #### 5 7021-8 ####[facility] LABIA [id number] [place] [address] WBC (Bld) [#/Vol] 10.04 10*3/uL Normal 3.70-11.00 [facility] Comment on above: Order Comment: Speci men Type: BLOOD SPECIMENOrdering Facility: [facility] Address: [address] [place] [address] Performed By: #### 5 7021-8 ####[facility] LABCLIA [id number] [place] [address] Comprehensive metabolic 2000 panelon 04-09-2023 Albumin [Mass/Vol] 4.1 g/dL Normal 3.9-4.9 [facility] Comment on above: Order Comment: Speci men Type: BLOOD SPECIMENOrdering Facility: [facility] Address: [address] [place] [address] Performed By: #### 2 4323-8 ####[facility] LABCLIA [id number] [place] [address] ALP [Catalytic activity/Vol] 74 U/L Normal 34-123 [facility] Comment on above: Order Comment: Speci men Type: BLOOD SPECIMENOrdering Facility: [facility] Address: [address] [place] [address] Performed By: #### 2 4323-8 ####[facility] LABCLIA [id number] [place] [address] ALT [Catalytic activity/Vol] 17 U/L Normal 7-38 [facility] Comment on above: Order Comment: Speci men Type: BLOOD SPECIMENOrdering Facility: [facility] Address: [address] [place] [address] Performed By: #### 2 4323-8 ####[facility] LABCLIA [id number] [place] [address] Anion gap [Moles/Vol] 12 mmol/L Normal 9-18 [facility] Comment on above: Order Comment: Speci men Type: BLOOD SPECIMENOrdering Facility: [facility] Address: [address] [place] [address] Performed By: #### 2 4323-8 ####[facility] LABCLIA [id number] [place] [address] AST [Catalytic activity/Vol] 11 U/L Low 13-35 [facility] Comment on above: Order Comment: Speci men Type: BLOOD SPECIMENOrdering Facility: [facility] Address: [address] [place] [address] Performed By: #### 2 4323-8 ####[facility] LABCLIA [id number] [place] [address] Bilirubin [Mass/Vol] 0.2 mg/dL Normal 0.2-1.3 [facility] Comment on above: Order Comment: Speci men Type: BLOOD SPECIMENOrdering Facility: [facility] Address: [address] [place] [address] Performed By: #### 2 4323-8 ####[facility] LABCLIA [id number] [place] [address] Calcium [Mass/Vol] 9.4 mg/dL Normal 8.5-10.2 [facility] Comment on above: Order Comment: Speci men Type: BLOOD SPECIMENOrdering Facility: [facility] Address: [address] [place] [address] Performed By: #### 2 4323-8 ####[facility] LABCLIA [id number] [place] [address] Chloride [Moles/Vol] 106 mmol/L High 97-105 [facility] Comment on above: Order Comment: Speci men Type: BLOOD SPECIMENOrdering Facility: [facility] Address: [address] [place] [address] Performed By: #### 2 4323-8 ####[facility] LABCLIA [id number] [place] [address] CO2 [Moles/Vol] 26 mmol/L Normal 22-30 [facility] Comment on above: Order Comment: Speci men Type: BLOOD SPECIMENOrdering Facility: [facility] Address: [address] [place] [address] Performed By: #### 2 4323-8 ####[facility] LABCLIA [id number] [place] [address] Creatinine [Mass/Vol] 0.89 mg/dL Normal 0.58-0.96 [facility] Comment on above: Order Comment: Semaj cortés Type: BLOOD SPECIMENOrdering Facility: [facility] Address: [place] [address] Performed By: #### 2 4323-8 ####[facility] LABCLIA [id number] [place] [address] Creatinine and Glomerular filtration rate.predicted panel (S/P/Bld) 83 mL/min/1.73m??? Normal >=60 [facility] Comment on above: Order Comment: Semaj cortés Type: BLOOD SPECIMENOrdering Facility: [facility] Address: [place] [address] Result Comment: Erin mated Glomerular Filtration Rate [...] actual GFR. Performed By: #### 2 4323-8 ####[facility] LABCLIA [id number] [place] [address] Glucose [Mass/Vol] 120 mg/dL High 74-99 [facility] Comment on above: Order Comment: Semaj cortés Type: BLOOD SPECIMENOrdering Facility: [facility] Address: [address] [place] [id number] Result Comment: The [place] Diabetes Association (ADA) provides guidance for cutoff [...] Standards of Medical Care in Diabetes 2016, [place] [employer]. Diabetes Care. 2016.39(Suppl 1). Performed By: #### 2 4323-8 ####[facility] LABCLIA [id number] [place] [address] Potassium [Moles/Vol] 3.7 mmol/L Normal 3.7-5.1 [facility] Comment on above: Order Comment: Speci men Type: BLOOD SPECIMENOrdering Facility: [facility] Address: [address] [place] [address] Performed By: #### 2 4323-8 ####[facility] LABCLIA [id number] [place] [address] Protein [Mass/Vol] 6.7 g/dL Normal 6.3-8.0 [facility] Comment on above: Order Comment: Speci men Type: BLOOD SPECIMENOrdering Facility: [facility] Address: [address] [place] [address] Performed By: #### 2 4323-8 ####[facility] LABCLIA [id number] [place] [address] Sodium [Moles/Vol] 144 mmol/L Normal 136-144 [facility] Comment on above: Order Comment: Speci men Type: BLOOD SPECIMENOrdering Facility: [facility] Address: [address] [place] [address] Performed By: #### 2 4323-8 ####[facility] LABCLIA [id number] [place] [address] Urea nitrogen [Mass/Vol] 24 mg/dL High 7-21 [facility] Comment on above: Order Comment: Speci men Type: BLOOD SPECIMENOrdering Facility: [facility] Address: [address] [place] [address] Performed By: #### 2 4323-8 ####[facility] LABCLIA [id number] [place] [address] Ferritin SerPl-ncon 2022 Ferritin [Mass/Vol] 21.2 ng/mL Normal 14.7-205.1 [facility] Comment on above: Order Comment: Speci men Type: BLOOD SPECIMENOrdering Facility: [facility] Address: [address] [place] [address] Performed By: #### 2 276-4, 2284-8, 67261-7, 9 ####[facility] LABCLIA [id number] [place] [address] [place] Folate SerPl-mCncon 04-09-20 Folate [Mass/Vol] 10.7 ng/mL Normal >4.7 [facility] Comment on above: Order Comment: Leolai men Type: BLOOD SPECIMENOrdering Facility: [facility] Address: [address] [place] [address] Performed By: #### 2 276-4, 2284-8, 15827-9, 2132-01 ####[facility] LABIA [id number] [place] [address] [place] INSULIN ANTIBODY [facility] 04-09 Insulin Ab Qn (S) <0.4 Normal <0.4 [facility] Comment on above: Order Comment: Speci men Type: BLOOD SPECIMENOrdering Facility: [facility] Address: [address] [place] [address] Result Comment: Anti -insulin antibody test is used as an aid in diagnosis and prognosis of autoimmune diabetes mellitus in combination with other tests such as anti-GAD65 and anti-IA-2 antibody. A single negative result cannot rule out autoimmune diabetes mellitus. The test is not reliable in patients who had previously received exogenous insulin. Clinical correlation is required. Performed By: #### I NSLAB ####[facility] LABCLIA [id number] [place] [address] [place] INSULIN ANTIBODY, QUALITATIVE Negative Normal Negative [facility] Comment on above: Order Comment: Speci men Type: BLOOD SPECIMENOrdering Facility: [facility] Address: [address] [place] [address] Performed By: #### I NSLAB ####[facility] LABCLIA [id number] [address] [address] [place] Insulin SerPl-aCncon 023 Insulin Qn 266.5 u[IU]/mL High 3.0-25.0 [facility] Comment on above: Order Comment: Speci men Type: BLOOD SPECIMENOrdering Facility: [facility] Address: [address] [place] [address] Performed By: #### 2 0448-7 ####[facility] LABIA [id number] [place] [id number] [place] Iron and Iron binding capaci ty panelon 04-09-2023 Iron [Mass/Vol] 105 ug/dL Normal 41-186 [facility] Comment on above: Order Comment: Speci men Type: BLOOD SPECIMENOrdering Facility: [facility] Address: [address] [place] [address] Performed By: #### 2 276-4, 2284-8, 60066-1, 2132-01 ####[facility] LABIA [id number] [place] [address] [place] Iron binding capacity [Mass/Vol] 414 ug/dL High 232-386 [facility] Comment on above: Order Comment: Speci men Type: BLOOD SPECIMENOrdering Facility: [facility] Address: [address] [place] [address] Performed By: #### 2 276-4, 2284-8, 72530-4, 2132-01 ####[facility] LABIA [id number] [place] [id number] [place] Iron/TIBC [Molar ratio] 25.4 % Normal 15.0-57.0 [facility] Comment on above: Order Comment: Speci men Type: BLOOD SPECIMENOrdering Facility: [facility] Address: [address] [place] [address] Performed By: #### 2 276-4, 2284-8, 88712-1, 2132-01 ####[facility] LABCLIA [id number] [address] [place] Vit B12 SerPl-ncon 17-2 023 Cobalamin (Vitamin B12) [Mass/Vol] 370 pg/mL Normal 232-1245 [facility] Comment on above: Order Comment: Speci men Type: BLOOD SPECIMENOrdering Facility: [facility] Address: [address] [place] [address] Performed By: #### 2 276-4, 2284-8, 92443-4, 2132-01 ####[facility] [id number] [address] [place] CNNURSEon 03-19-2023 CNNURSE Normal [facility] CNNURSEon 03-11-2023 CNNURSE Normal [facility] CNPNon 03-01-2023 CNPN Normal [facility] CNNURSEon 02-19-2023 CNNURSE Normal [facility] CNOVSPon 02-19-2023 CNOVSP Normal [facility] B2 Microglob SerPl-ncon Pnby-3-Isgsyuowecowg [Mass/Vol] 1.9 ug/mL Normal 0.8-2.4 [facility] Comment on above: Order Comment: Speci men Type: BLOOD SPECIMENOrdering Facility: [facility] Address: [address] [place], [place] [address] Result Comment: Beta -2 Microglobulin test is performed using the [employer] immunoturbidimetric method. Results obtained with different methods or kits cannot be used interchangeably. Performed By: #### 1 952-1, 57456-8, 2276-4 ####[facility] LABIA [id number] [place] [address] [place] CBC W Auto Differential pane l (Bld)on 02-11-2023 Basophils (Bld) [#/Vol] 0.08 10*3/uL Normal <0.11 [facility] Comment on above: Order Comment: Speci men Type: BLOOD SPECIMENOrdering Facility: [facility] Address: [address] [place] [address] Performed By: #### 5 7021-8 ####[facility] LABCLIA [id number] [place] [address] Basophils/100 WBC (Bld) 0.8 % Normal [facility] Comment on above: Order Comment: Speci men Type: BLOOD SPECIMENOrdering Facility: [facility] Address: [address] [place] [address] Performed By: #### 5 7021-8 ####[facility] LABCLIA [id number] [place] [address] Differential cell count method Nom (Bld) Auto Normal [facility] Comment on above: Order Comment: Speci men Type: BLOOD SPECIMENOrdering Facility: [facility] Address: [address] [place] [address] Performed By: #### 5 7021-8 ####[facility] LABCLIA [id number] [place] [address] Eosinophils (Bld) [#/Vol] 0.16 10*3/uL Normal <0.46 [facility] Comment on above: Order Comment: Speci men Type: BLOOD SPECIMENOrdering Facility: [facility] Address: [address] [place] [address] Performed By: #### 5 7021-8 ####[facility] LABCLIA [id number] [place] [address] Eosinophils/100 WBC (Bld) 1.6 % Normal [facility] Comment on above: Order Comment: Speci men Type: BLOOD SPECIMENOrdering Facility: [facility] Address: [address] [place] [address] Performed By: #### 5 7021-8 ####[facility] LABCLIA [id number] [place] [address] Erythrocyte distribution width (RBC) [Ratio] 14.6 % Normal 11.5-15.0 [facility] Comment on above: Order Comment: Speci men Type: BLOOD SPECIMENOrdering Facility: [facility] Address: [address] [place] [address] Performed By: #### 5 7021-8 ####[facility] LABCLIA [id number] [place] [address] Hematocrit (Bld) [Volume fraction] 41.0 % Normal 36.0-46.0 [facility] Comment on above: Order Comment: Speci men Type: BLOOD SPECIMENOrdering Facility: [facility] Address: [address] [place] [address] Performed By: #### 5 7021-8 ####[facility] LABCLIA [id number] [place] [address] Hemoglobin (Bld) [Mass/Vol] 13.2 g/dL Normal 11.5-15.5 [facility] Comment on above: Order Comment: Speci men Type: BLOOD SPECIMENOrdering Facility: [facility] Address: [address] [place] [address] Performed By: #### 5 7021-8 ####[facility] LABCLIA [id number] [place] [address] Immature granulocytes (Bld) [#/Vol] 0.07 10*3/uL Normal <0.10 [facility] Comment on above: Order Comment: Speci men Type: BLOOD SPECIMENOrdering Facility: [facility] Address: [address] [place] [address] Performed By: #### 5 7021-8 ####[facility] LABCLIA [id number] [place] [address] Immature granulocytes/100 WBC (Bld) 0.7 % Normal [facility] Comment on above: Order Comment: Speci men Type: BLOOD SPECIMENOrdering Facility: [facility] Address: [address] [place] [address] Performed By: #### 5 7021-8 ####[facility] LABCLIA [id number] [place] [address] Lymphocytes (Bld) [#/Vol] 2.29 10*3/uL Normal 1.00-4.00 [facility] Comment on above: Order Comment: Speci men Type: BLOOD SPECIMENOrdering Facility: [facility] Address: [address] [place] [address] Performed By: #### 5 7021-8 ####[facility] LABCLIA [id number] [place] [address] Lymphocytes/100 WBC (Bld) 22.4 % Normal [facility] Comment on above: Order Comment: Speci men Type: BLOOD SPECIMENOrdering Facility: [facility] Address: [address] [place] [address] Performed By: #### 5 7021-8 ####[facility] LABCLIA [id number] [place] [address] MCH (RBC) [Entitic mass] 30.6 pg Normal 26.0-34.0 [facility] Comment on above: Order Comment: Speci men Type: BLOOD SPECIMENOrdering Facility: [facility] Address: [address] [place] [address] Performed By: #### 5 7021-8 ####[facility] LABCLIA [id number] [place] [address] MCHC (RBC) [Mass/Vol] 32.2 g/dL Normal 30.5-36.0 [facility] Comment on above: Order Comment: Speci men Type: BLOOD SPECIMENOrdering Facility: [facility] Address: [address] [place] [address] Performed By: #### 5 7021-8 ####[facility] LABCLIA [id number] [place] [address] MCV (RBC) [Entitic vol] 94.9 fL Normal 80.0-100.0 [facility] Comment on above: Order Comment: Speci men Type: BLOOD SPECIMENOrdering Facility: [facility] Address: [address] [place] [address] Performed By: #### 5 7021-8 ####[facility] LABCLIA [id number] [place] [address] Monocytes (Bld) [#/Vol] 0.62 10*3/uL Normal <0.87 [facility] Comment on above: Order Comment: Speci men Type: BLOOD SPECIMENOrdering Facility: [facility] Address: [address] [place] [address] Performed By: #### 5 7021-8 ####[facility] LABCLIA [id number] [place] [address] Monocytes/100 WBC (Bld) 6.1 % Normal [facility] Comment on above: Order Comment: Speci men Type: BLOOD SPECIMENOrdering Facility: [facility] Address: [address] [place] [address] Performed By: #### 5 7021-8 ####[facility] LABCLIA [id number] [place] [address] Neutrophils (Bld) [#/Vol] 6.99 10*3/uL Normal 1.45-7.50 [facility] Comment on above: Order Comment: Speci men Type: BLOOD SPECIMENOrdering Facility: [facility] Address: [address] [place] [address] Performed By: #### 5 7021-8 ####[facility] LABCLIA [id number] [place] [address] Neutrophils/100 WBC (Bld) 68.4 % Normal [facility] Comment on above: Order Comment: Speci men Type: BLOOD SPECIMENOrdering Facility: [facility] Address: [address] [place] [address] Performed By: #### 5 7021-8 ####[facility] LABCLIA [id number] [place] [address] Nucleated RBC (Bld) [#/Vol] 10*3/uL Normal <0.01 [facility] Comment on above: Order Comment: Speci men Type: BLOOD SPECIMENOrdering Facility: [facility] Address: [address] [place] [address] Performed By: #### 5 7021-8 ####[facility] LABCLIA [id number] [place] [address] Nucleated RBC/100 WBC (Bld) [Ratio] 0.0 /100 WBC Normal [facility] Comment on above: Order Comment: Speci men Type: BLOOD SPECIMENOrdering Facility: [facility] Address: [address] [place] [address] Performed By: #### 5 7021-8 ####[facility] LABIA [id number] [place] [address] Platelet mean volume (Bld) [Entitic vol] 9.6 fL Normal 9.0-12.7 [facility] Comment on above: Order Comment: Speci men Type: BLOOD SPECIMENOrdering Facility: [facility] Address: [address] [place] [address] Performed By: #### 5 7021-8 ####[facility] LABCLIA [id number] [place] [address] Platelets (Bld) [#/Vol] 258 10*3/uL Normal 150-400 [facility] Comment on above: Order Comment: Speci men Type: BLOOD SPECIMENOrdering Facility: [facility] Address: [address] [place] [address] Performed By: #### 5 7021-8 ####[facility] LABCLIA [id number] [place] [address] RBC (Bld) [#/Vol] 4.32 10*6/uL Normal 3.90-5.20 [facility] Comment on above: Order Comment: Speci men Type: BLOOD SPECIMENOrdering Facility: [facility] Address: [address] Performed By: #### 5 7021-8 ####[facility] LABCLIA [id number] [place] [address] WBC (Bld) [#/Vol] 10.21 10*3/uL Normal 3.70-11.00 [facility] Comment on above: Order Comment: Speci men Type: BLOOD SPECIMENOrdering Facility: [facility] Address: [address] Performed By: #### 5 7021-8 ####[facility] LABCLIA [id number] [place] [address] Calcium.ionized [Moles/Vol]o n 02-11-2023 Calcium.ionized (Bld) [Mass/Vol] 1.32 mmol/L High 1.08-1.30 [facility] Comment on above: Order Comment: Speci men Type: BLOOD SPECIMENOrdering Facility: [facility] Address: [address] [place], [place] [address] Performed By: #### 1 995-0 ####[facility] LABIA [id number] [address] STATES OF [facility] Calcium.ionized adjusted to pH 7.4 (Bld) [Moles/Vol] 1.27 mmol/L Normal 1.08-1.30 [facility] Comment on above: Order Comment: Speci men Type: BLOOD SPECIMENOrdering Facility: [facility] Address: [address] [place], [place] [address] Performed By: #### 1 995-0 ####[facility] LABIA [id number] [place] [address] [place] Comprehensive metabolic 2000 panelon 02-11-2023 Albumin [Mass/Vol] 4.0 g/dL Normal 3.9-4.9 [facility] Comment on above: Order Comment: Speci men Type: BLOOD SPECIMENOrdering Facility: [facility] Address: [address] [place] [address] Performed By: #### 2 4323-8, 2532-0, 2776-1, 3083-1 ####[facility] LABCLIA [id number] [place] [address] ALP [Catalytic activity/Vol] 75 U/L Normal 34-123 [facility] Comment on above: Order Comment: Speci men Type: BLOOD SPECIMENOrdering Facility: [facility] Address: [address] [place] [address] Performed By: #### 2 4323-8, 2-0, 2776-1, 3083-1 ####[facility] LABIA [id number] [place] [address] ALT [Catalytic activity/Vol] 21 U/L Normal 7-38 [facility] Comment on above: Order Comment: Speci men Type: BLOOD SPECIMENOrdering Facility: [facility] Address: [address] [place] [address] Performed By: #### 2 4323-8, 2-0, 2776-1, 3083-1 ####[facility] LABIA [id number] [place] [address] Anion gap [Moles/Vol] 11 mmol/L Normal 9-18 [facility] Comment on above: Order Comment: Speci men Type: BLOOD SPECIMENOrdering Facility: [facility] Address: [address] [place] [address] Performed By: #### 2 4323-8, 2532-0, 2776-1, 3083-1 ####[facility] LABIA [id number] [place] [address] AST [Catalytic activity/Vol] 11 U/L Low 13-35 [facility] Comment on above: Order Comment: Speci men Type: BLOOD SPECIMENOrdering Facility: [facility] Address: [address] [place] [address] Performed By: #### 2 4323-8, 2532-0, 2777-1, 3084-1 ####[facility] LABIA [id number] [place] [address] Bilirubin [Mass/Vol] mg/dL Low 0.2-1.3 [facility] Comment on above: Order Comment: Speci men Type: BLOOD SPECIMENOrdering Facility: [facility] Address: [address] [place] [address] Performed By: #### 2 4323-8, 2532-0, 2777-1, 3084-1 ####[facility] LABIA [id number] [place] [address] Calcium [Mass/Vol] 9.7 mg/dL Normal 8.5-10.2 [facility] Comment on above: Order Comment: Speci men Type: BLOOD SPECIMENOrdering Facility: [facility] Address: [address] [place] [address] Performed By: #### 2 4323-8, 2532-0, 2777-1, 3084-1 ####[facility]ITAL[facility] [id number] [place] [address] Chloride [Moles/Vol] 107 mmol/L High 97-105 [facility] Comment on above: Order Comment: Speci men Type: BLOOD SPECIMENOrdering Facility: [facility] Address: [address] [place] [address] Performed By: #### 2 4323-8, 2532-0, 2777-1, 3084-1 ####[facility] LABIA [id number] [place] [address] CO2 [Moles/Vol] 23 mmol/L Normal 22-30 [facility] Comment on above: Order Comment: Speci men Type: BLOOD SPECIMENOrdering Facility: [facility] Address: [address] [place] [address] Performed By: #### 2 4323-8, 2532-0, 7-1, 3083-1 ####[facility] LABCLIA [id number] [place] [address] Creatinine [Mass/Vol] 0.76 mg/dL Normal 0.58-0.96 [facility] Comment on above: Order Comment: Speci men Type: BLOOD SPECIMENOrdering Facility: [facility] Address: [address] [place] [address] Performed By: #### 2 4323-8, 2532-0, 7-1, 3083-1 ####[facility] LABCLIA [id number] [place] [address] Creatinine and Glomerular filtration rate.predicted panel (S/P/Bld) 100 mL/min/1.73m??? Normal >=60 [facility] Comment on above: Order Comment: Speci men Type: BLOOD SPECIMENOrdering Facility: [facility] Address: [address] [place] [address] Result Comment: Erin mated Glomerular Filtration Rate [...] GFR. Performed By: #### 2 4323-8, 2532-0, 2776-, 3083- ####[facility] LABCLIA [id number] [place] [address] Glucose [Mass/Vol] 164 mg/dL High 74-99 [facility] Comment on above: Order Comment: Speci men Type: BLOOD SPECIMENOrdering Facility: [facility] Address: [address] [place] [address] Result Comment: The [place] [employer] (ADA) provides guidance for cutoff [...] Standards of Medical Care in Diabetes 2016, [place] [employer]. Diabetes Care. 2016.39(Suppl 1). Performed By: #### 2 4323-8, 2532-0, 7-1, 3084-1 ####[facility] LABCLIA [id number] [place] [address] Potassium [Moles/Vol] 4.0 mmol/L Normal 3.7-5.1 [facility] Comment on above: Order Comment: Speci men Type: BLOOD SPECIMENOrdering Facility: [facility] Address: [address] [place] [address] Performed By: #### 2 4323-8, 2-0, 2776-, 3083- ####[facility] LABIA [id number] [place] [address] Protein [Mass/Vol] 6.5 g/dL Normal 6.3-8.0 [facility] Comment on above: Order Comment: Speci men Type: BLOOD SPECIMENOrdering Facility: [facility] Address: [address] [place] [address] Performed By: #### 2 4323-8, 2532-0, 2776-, 3083- ####[facility] LABIA [id number] [place] [address] Sodium [Moles/Vol] 141 mmol/L Normal 136-144 [facility] Comment on above: Order Comment: Speci men Type: BLOOD SPECIMENOrdering Facility: [facility] Address: [address] [place] [address] Performed By: #### 2 4323-8, 2532-0, 2777-1, 3084-1 ####[facility] LABCLIA [id number] [place] [address] Urea nitrogen [Mass/Vol] 15 mg/dL Normal 7-21 [facility] Comment on above: Order Comment: Speci men Type: BLOOD SPECIMENOrdering Facility: [facility] Address: [address] [place] [address] Performed By: #### 2 4323-8, 2532-0, 2777-1, 3084-1 ####[facility] LABCLIA [id number] [place] [address] Ferritin SerPl-mCncon 2022 Ferritin [Mass/Vol] 34.2 ng/mL Normal 14.7-205.1 [facility] Comment on above: Order Comment: Speci men Type: BLOOD SPECIMENOrdering Facility: [facility] Address: [address] [place] [address] Performed By: #### 1 952-1, 86300-6, 2276-4 ####[facility] LABCLIA [id number] [place] [id number] [place] Folate SerPl-mCncon 02-12-20 23 Folate [Mass/Vol] ng/mL Normal >4.7 [facility] Comment on above: Order Comment: Speci men Type: BLOOD SPECIMENOrdering Facility: [facility] Address: [address] [place] [address] Result Comment: A re sult of > 20 ng/mL is not necessarily indicative of a pathologic or treatable condition: it reflects a limitation of the test methodology.Assay reference range: 4.8 to 24.2 ng/mL. Suitable for detection of folate deficiency.Reference:Folate III (Folate III) [package insert V 1.0 [place]]. [facility], [place], [place]: March 2015. Performed By: #### 2 885-2, 2132-9, 2284-8 ####[facility] LABCLIA [id number] [address] IMMUNOFIXATION SCREEN, SERUM on 02-11-2023 MPA RESULT No M protein is identified. Normal No M protein is identified. [facility] Comment on above: Order Comment: Speci men Type: BLOOD SPECIMENOrdering Facility: [facility] Address: [address] [place] [address] Performed By: #### I FESC ####[facility] LABCLIA [id number] [address] STAFF REVIEW (MPA) Reviewed by Daphne vyas M.D. Normal [facility] Comment on above: Order Comment: Speci men Type: BLOOD SPECIMENOrdering Facility: [facility] Address: [address] [place] [address] Performed By: #### I FES ####[facility] LABCLIA [id number] [place] [address] [place] IMMUNOGLOBULINS GAMon 2022 IgA [Mass/Vol] 178 mg/dL Normal 70-400 [facility] Comment on above: Order Comment: Speci men Type: BLOOD SPECIMENOrdering Facility: [facility] Address: [address] [place] [address] Performed By: #### S ERIMM ####[facility] LABCLIA [id number] [place] [address] [place] IgG [Mass/Vol] 534 mg/dL Low 700-1600 [facility] Comment on above: Order Comment: Speci men Type: BLOOD SPECIMENOrdering Facility: [facility] Address: [address] [place] [address] Performed By: #### S ERIMM ####[facility] LABCLIA [id number] [place] [address] [place] IgM [Mass/Vol] 453 mg/dL High 40-230 [facility] Comment on above: Order Comment: Speci men Type: BLOOD SPECIMENOrdering Facility: [facility] Address: [address] [place] [address] Performed By: #### S ERIMM ####[facility] LABIA [id number] [place] [address] [place] Iron and Iron binding capaci ty panelon 02-11-2023 Iron [Mass/Vol] 55 ug/dL Normal 41-186 [facility] Comment on above: Order Comment: Speci men Type: BLOOD SPECIMENOrdering Facility: [facility] Address: [address] [place] [address] Performed By: #### 1 952-1, 73454-3, 2276-4 ####[facility] [id number] [place] [address] [place] Iron binding capacity [Mass/Vol] 339 ug/dL Normal 232-386 [facility] Comment on above: Order Comment: Speci men Type: BLOOD SPECIMENOrdering Facility: [facility] Address: [address] [place] [address] Performed By: #### 1 952-1, 70545-0, 2276-4 ####[facility] [id number] [address] [place] Iron/TIBC [Molar ratio] 16.2 % Normal 15.0-57.0 [facility] Comment on above: Order Comment: Speci men Type: BLOOD SPECIMENOrdering Facility: [facility] Address: [address] [place] [address] Performed By: #### 1 952-1, 87169-8, 2276-4 ####[facility] [id number] [place] [address] [place] KAPPA/FARMER,FREE,SERon 2022 Immunoglobulin light chains.kappa.free (S) [Mass/Vol] 13.1 mg/L Normal 3.3-19.4 [facility] Comment on above: Order Comment: Speci men Type: BLOOD SPECIMENOrdering Facility: [facility] Address: [address] [place] [address] Result Comment: Rare ly, increased serum free light chains levels may not be detected or accurately quantified due to prozone phenomenon or in high viscosity samples using this immunoturbidimetric assay. Correlation with other laboratory results and clinical findings is recommended.The Tatums Free Light Chain was performed using the Binding Site Optilite immunoturbidimetric method. Result obtained with different assay methods or kits cannot be used interchangeably. Performed By: #### K LFRS ####[facility] LABCLIA [id number] [place] [address] [place] Immunoglobulin light chains.kappa/Immunog lobulin light chains.lambda (S) [Mass ratio] 1.22 Normal 0.26-1.65 [facility] Comment on above: Order Comment: Speci men Type: BLOOD SPECIMENOrdering Facility: [facility] Address: [address] [place] [address] Performed By: #### K LFRS ####[facility] LABCLIA [id number] [place] [address] [place] Immunoglobulin light chains.lambda.free [Mass/Vol] 10.7 mg/L Normal 5.7-26.3 [facility] Comment on above: Order Comment: Speci men Type: BLOOD SPECIMENOrdering Facility: [facility] Address: [address] [place] [address] Result Comment: Rare ly, increased serum free [...] used interchangeably. Performed By: #### K LFRS ####[facility] LABCLIA [id number] [place] [address] [place] LDH SerPl-cCncon 02-11-2023 LDH [Catalytic activity/Vol] 190 U/L Normal 135-214 [facility] Comment on above: Order Comment: Speci men Type: BLOOD SPECIMENOrdering Facility: [facility] Address: [address] [place] [address] Result Comment: Hemo lysis present. The origin [...] By: #### 2 4323-8, 2532-0, 2777-1, 3084-1 ####[facility] LABCLIA [id number] [place] [address] PROTEIN ELECTROPHORESIS SERU M (P)on 02-11-2023 Albumin [Mass/Vol] 3.61 g/dL Normal 3.43-5.41 [facility] Comment on above: Order Comment: Speci men Type: BLOOD SPECIMENOrdering Facility: [facility] Address: [address] [place] [address] Performed By: #### L [id number] ####[facility] LABCLIA [id number] [address] [place] Alpha 1 globulin Elph [Mass/Vol] 0.31 g/dL Normal 0.18-0.43 [facility] Comment on above: Order Comment: Speci men Type: BLOOD SPECIMENOrdering Facility: [facility] Address: [address] [address] Performed By: #### L [id number] ####[facility] LABCLIA [id number] [address] [place] Alpha 2 globulin Elph [Mass/Vol] 0.76 g/dL Normal 0.42-0.98 [facility] Comment on above: Order Comment: Speci men Type: BLOOD SPECIMENOrdering Facility: [facility] Address: [address] [address] Performed By: #### L [id number] ####[facility] LABIA [id number] [address] OF [facility] Beta globulin Elph [Mass/Vol] 0.85 g/dL Normal 0.61-1.17 [facility] Comment on above: Order Comment: Speci men Type: BLOOD SPECIMENOrdering Facility: [facility] Address: [address] [place] [address] Performed By: #### L [id number] ####[facility] LABIA [id number] [address] OF [facility] Gamma globulin Elph [Mass/Vol] 0.66 g/dL Normal 0.53-1.51 [facility] Comment on above: Order Comment: Speci men Type: BLOOD SPECIMENOrdering Facility: [facility] Address: [address] [place] [address] Performed By: #### L [id number] ####[facility] LABIA [id number] [address] [place] M-PROTEIN LOCATION Normal [facility] Comment on above: Order Comment: Speci men Type: BLOOD SPECIMENOrdering Facility: [facility] Address: [address] [place] [address] Result Comment: Not Applicable. Performed By: #### L [id number] ####[facility] LABIA [id number] [address] [place] Protein Fractions [Interp] No definitive M protein is identified on protein electrophoresis. Normal No definitive M protein is identified on protein electrophore sis. [facility] Comment on above: Order Comment: Speci men Type: BLOOD SPECIMENOrdering Facility: [facility] Address: [address] [place] [address] Performed By: #### L [id number] ####[facility] LABIA [id number] [place] [address] [place] Protein.monoclonal Elph [Mass/Vol] 0.00 g/dL Normal <=0.00 [facility] Comment on above: Order Comment: Speci men Type: BLOOD SPECIMENOrdering Facility: [facility] Address: [address] [place] [address] Performed By: #### L [id number] ####[facility] LABCLIA [id number] [address] [place] SPE STAFF REVIEW Reviewed by Daphne vyas M.D. [facility] Comment on above: Order Comment: Speci men Type: BLOOD SPECIMENOrdering Facility: [facility] Address: [address] [place] [address] Performed By: #### L [id number] ####[facility] LABCLIA [id number] [place] [address] [place] Phosphate SerPl-mCncon 02-11 Phosphate [Mass/Vol] 3.4 mg/dL Normal 2.7-4.8 [facility] Comment on above: Order Comment: Speci men Type: BLOOD SPECIMENOrdering Facility: [facility] Address: [address] [place] [address] Performed By: #### 2 4323-8, 2532-0, 2777-1, 3084-1 ####[facility] LABCLIA [id number] [place] [address] Prot SerPl-mCncon 02-11-2023 Protein [Mass/Vol] 6.2 g/dL Low 6.3-8.0 [facility] Comment on above: Order Comment: Speci men Type: BLOOD SPECIMENOrdering Facility: [facility] Address: [address] [place] [address] Performed By: #### 2 885-2, 2132-9, 2284-8 ####[facility] LABCLIA [id number] [place] [address] [place] Urate [facility] 3 Urate [Mass/Vol] 4.3 mg/dL Normal 2.5-6.6 [facility] Comment on above: Order Comment: Speci men Type: BLOOD SPECIMENOrdering Facility: [facility] Address: [address] [address] Performed By: #### 2 4323-8, 2532-0, 2777-1, 3084-1 ####[facility] LABCLIA [id number] [place] [address] Vit B12 [facility] 023 Cobalamin (Vitamin B12) [Mass/Vol] 598 pg/mL Normal 232-1245 [facility] Comment on above: Order Comment: Speci men Type: BLOOD SPECIMENOrdering Facility: [facility] Address: [address] [address] Performed By: #### 2 885-2, 2132-9, 2284-8 ####[facility] LABCLIA [id number] [place] [address] [place] CNPNon 02-04-2023 CNPN Normal [facility] CNPNon 01-24-2023 CNPN Normal [facility] 25([place])D3 [facility] 2022 25-hydroxyvitamin D3 [Mass/Vol] 25.1 ng/mL Low 31.0-80.0 [facility] Comment on above: Order Comment: Speci men Type: BLOOD SPECIMENOrdering Facility: [facility] Address: [address] [address] Result Comment: Clas sification of 25 [place] Vitamin D status:Deficiency/Insufficiency: < or = 30 ng/ml.Sufficiency/Optimal Levels: 31-80 ng/mLToxicity: > 100 ng/mL.Test performed by chemiluminescent immunoassay. Performed By: #### 1 989-3 ####[facility] LABCLIA [id number] [facility] [id number] OF [facility] CBC panel Auto (Bld)on 01-22 Erythrocyte distribution width (RBC) [Ratio] 14.8 % Normal 11.5-15.0 [facility] Comment on above: Order Comment: Speci men Type: BLOOD SPECIMENOrdering Facility: [facility] Address: [address] [place] [address] Performed By: #### 5 8410-2 ####[facility] LABCLIA [id number] [place] [address] Hematocrit (Bld) [Volume fraction] 40.9 % Normal 36.0-46.0 [facility] Comment on above: Order Comment: Speci men Type: BLOOD SPECIMENOrdering Facility: [facility] Address: [address] [place] [address] Performed By: #### 5 8410-2 ####[facility] LABIA [id number] [place] [address] Hemoglobin (Bld) [Mass/Vol] 13.4 g/dL Normal 11.5-15.5 [facility] Comment on above: Order Comment: Speci men Type: BLOOD SPECIMENOrdering Facility: [facility] Address: [address] [place] [address] Performed By: #### 5 8410-2 ####[facility] LABIA [id number] [place] [address] MCH (RBC) [Entitic mass] 30.1 pg Normal 26.0-34.0 [facility] Comment on above: Order Comment: Speci men Type: BLOOD SPECIMENOrdering Facility: [facility] Address: [address] [place] [address] Performed By: #### 5 8410-2 ####[facility] LABIA [id number] [place] [address] MCHC (RBC) [Mass/Vol] 32.8 g/dL Normal 30.5-36.0 [facility] Comment on above: Order Comment: Speci men Type: BLOOD SPECIMENOrdering Facility: [facility] Address: [address] [address] Performed By: #### 5 8410-2 ####[facility] LABCLIA [id number] [place] [address] MCV (RBC) [Entitic vol] 91.9 fL Normal 80.0-100.0 [facility] Comment on above: Order Comment: Speci men Type: BLOOD SPECIMENOrdering Facility: [facility] Address: [address] [address] Performed By: #### 5 8410-2 ####[facility] LABCLIA [id number] [place] [address] Nucleated RBC (Bld) [#/Vol] 10*3/uL Normal <0.01 [facility] Comment on above: Order Comment: Speci men Type: BLOOD SPECIMENOrdering Facility: [facility] Address: [address] [address] Performed By: #### 5 8410-2 ####[facility] LABIA [id number] [place] [address] Platelet mean volume (Bld) [Entitic vol] 9.6 fL Normal 9.0-12.7 [facility] Comment on above: Order Comment: Speci men Type: BLOOD SPECIMENOrdering Facility: [facility] Address: [address] Performed By: #### 5 8410-2 ####[facility] LABCLIA [id number] [place] [address] Platelets (Bld) [#/Vol] 285 10*3/uL Normal 150-400 [facility] Comment on above: Order Comment: Speci men Type: BLOOD SPECIMENOrdering Facility: [facility] Address: [address] [address] Performed By: #### 5 8410-2 ####[facility] LABCLIA [id number] [place] [address] RBC (Bld) [#/Vol] 4.45 10*6/uL Normal 3.90-5.20 [facility] Comment on above: Order Comment: Speci men Type: BLOOD SPECIMENOrdering Facility: [facility] Address: [address] [place] [address] Performed By: #### 5 8410-2 ####[facility] LABCLIA [id number] [place] [address] WBC (Bld) [#/Vol] 13.80 10*3/uL High 3.70-11.00 [facility] Comment on above: Order Comment: Speci men Type: BLOOD SPECIMENOrdering Facility: [facility] Address: [address] [place] [address] Performed By: #### 5 8410-2 ####[facility] LABCLIA [id number] [place] [address] CNNURSEon 01-22-2023 CNNURSE Normal [facility] CRP SerPl-mCncon 01-22-2023 CRP [Mass/Vol] mg/L Normal <0.9 [facility] Comment on above: Order Comment: Speci men Type: BLOOD SPECIMENOrdering Facility: [facility] Address: [address] [place] [address] Performed By: #### 1 988-5 ####[facility] LABCLIA [id number] [facility] [id number] V[id number] [facility] Comprehensive metabolic 2000 panelon 01-22-2023 Albumin [Mass/Vol] 4.1 g/dL Normal 3.9-4.9 [facility] Comment on above: Order Comment: Speci men Type: BLOOD SPECIMENOrdering Facility: [facility] Address: [address] [place] [address] Performed By: #### 2 4323-8 ####[facility] LABCLIA [id number] [place] [address] ALP [Catalytic activity/Vol] 62 U/L Normal 34-123 [facility] Comment on above: Order Comment: Speci men Type: BLOOD SPECIMENOrdering Facility: [facility] Address: [address] [address] Performed By: #### 2 4323-8 ####[facility] LABCLIA [id number] [place] [address] ALT [Catalytic activity/Vol] 27 U/L Normal 7-38 [facility] Comment on above: Order Comment: Speci men Type: BLOOD SPECIMENOrdering Facility: [facility] Address: [address] [place] [address] Performed By: #### 2 4323-8 ####[facility] LABCLIA [id number] [place] [address] Anion gap [Moles/Vol] 10 mmol/L Normal 9-18 [facility] Comment on above: Order Comment: Speci men Type: BLOOD SPECIMENOrdering Facility: [facility] Address: [address] [place] [address] Performed By: #### 2 4323-8 ####[facility] LABCLIA [id number] [place] [address] AST [Catalytic activity/Vol] 12 U/L Low 13-35 [facility] Comment on above: Order Comment: Speci men Type: BLOOD SPECIMENOrdering Facility: [facility] Address: [address] [place] [address] Performed By: #### 2 4323-8 ####[facility] LABCLIA [id number] [place] [address] Bilirubin [Mass/Vol] 0.2 mg/dL Normal 0.2-1.3 [facility] Comment on above: Order Comment: Speci men Type: BLOOD SPECIMENOrdering Facility: [facility] Address: [address] [place] [address] Performed By: #### 2 4323-8 ####[facility] LABCLIA [id number] [place] [address] Calcium [Mass/Vol] 9.4 mg/dL Normal 8.5-10.2 [facility] Comment on above: Order Comment: Speci men Type: BLOOD SPECIMENOrdering Facility: [facility] Address: [address] [place] [address] Performed By: #### 2 4323-8 ####[facility] LABCLIA [id number] [place] [address] Chloride [Moles/Vol] 107 mmol/L High 97-105 [facility] Comment on above: Order Comment: Speci men Type: BLOOD SPECIMENOrdering Facility: [facility] Address: [address] [place] [address] Performed By: #### 2 4323-8 ####[facility] LABCLIA [id number] [place] [address] CO2 [Moles/Vol] 24 mmol/L Normal 22-30 [facility] Comment on above: Order Comment: Speci men Type: BLOOD SPECIMENOrdering Facility: [facility] Address: [address] [place] [address] Performed By: #### 2 4323-8 ####[facility] LABCLIA [id number] [place] [address] Creatinine [Mass/Vol] 0.71 mg/dL Normal 0.58-0.96 [facility] Comment on above: Order Comment: Speci men Type: BLOOD SPECIMENOrdering Facility: [facility] Address: [address] [place] [address] Performed By: #### 2 4323-8 ####[facility] LABCLIA [id number] [place] [address] Creatinine and Glomerular filtration rate.predicted panel (S/P/Bld) 109 mL/min/1.73m??? Normal >=60 [facility] Comment on above: Order Comment: Semaj cortés Type: BLOOD SPECIMENOrdering Facility: [facility] Address: [address] [place] [address] Result Comment: Erin mated Glomerular Filtration Rate [...] actual GFR. Performed By: #### 2 4323-8 ####[facility] LABCLIA [id number] [place] [address] Glucose [Mass/Vol] 60 mg/dL Low 74-99 [facility] Comment on above: Order Comment: Semaj cortés Type: BLOOD SPECIMENOrdering Facility: [facility] Address: [address] [place] [id number] Result Comment: The [place] [employer] (ADA) provides guidance for cutoff [...] Standards of Medical Care in Diabetes 2016, [place] [employer]. Diabetes Care. 2016.39(Suppl 1). Performed By: #### 2 4323-8 ####[facility] LABCLIA [id number] [place] [address] Potassium [Moles/Vol] 4.0 mmol/L Normal 3.7-5.1 [facility] Comment on above: Order Comment: Semaj cortés Type: BLOOD SPECIMENOrdering Facility: [facility] Address: [address] [address] Performed By: #### 2 4323-8 ####[facility] LABCLIA [id number] [place] [address] Protein [Mass/Vol] 6.7 g/dL Normal 6.3-8.0 [facility] Comment on above: Order Comment: Speci men Type: BLOOD SPECIMENOrdering Facility: [facility] Address: [address] [place] [address] Performed By: #### 2 4323-8 ####[facility] LABCLIA [id number] [place] [address] Sodium [Moles/Vol] 141 mmol/L Normal 136-144 [facility] Comment on above: Order Comment: Speci men Type: BLOOD SPECIMENOrdering Facility: [facility] Address: [address] [place] [address] Performed By: #### 2 4323-8 ####[facility] LABCLIA [id number] [place] [address] Urea nitrogen [Mass/Vol] 13 mg/dL Normal 7-21 [facility] Comment on above: Order Comment: Speci men Type: BLOOD SPECIMENOrdering Facility: [facility] Address: [address] [place] [address] Performed By: #### 2 4323-8 ####[facility] LABCLIA [id number] [place] [address] ESR Westergren method (Bld) [Velocity]on 01-22-2023 ESR (Bld) [Velocity] 20 mm/h Normal 0-20 [facility] Comment on above: Order Comment: Speci men Type: BLOOD SPECIMENOrdering Facility: [facility] Address: [address] [place] [address] Performed By: #### 4 537-7 ####[facility] LABCLIA [id number] [facility] [id number] CNNURSEon 12-29-2022 CNNURSE Normal [facility] CNPNon 12-18-2022 CNPN Normal [facility] CNPNon 12-16-2022 CNPN Normal [facility] CBC W Auto Differential pane l (Bld)on 12-08-2022 Basophils (Bld) [#/Vol] 0.06 10*3/uL Normal <0.11 [facility] Comment on above: Order Comment: Speci men Type: BLOOD SPECIMENOrdering Facility: [facility] Address: [address] [place] [address] Performed By: #### 5 7021-8 ####[facility] LABCLIA [id number] [place] [address] Basophils/100 WBC (Bld) 0.4 % Normal [facility] Comment on above: Order Comment: Speci men Type: BLOOD SPECIMENOrdering Facility: [facility] Address: [address] [place] [address] Performed By: #### 5 7021-8 ####[facility] LABCLIA [id number] [place] [address] Differential cell count method Nom (Bld) Auto Normal [facility] Comment on above: Order Comment: Speci men Type: BLOOD SPECIMENOrdering Facility: [facility] Address: [address] [place] [address] Performed By: #### 5 7021-8 ####[facility] LABCLIA [id number] [place] [address] Eosinophils (Bld) [#/Vol] 0.11 10*3/uL Normal <0.46 [facility] Comment on above: Order Comment: Speci men Type: BLOOD SPECIMENOrdering Facility: [facility] Address: [address] [place] [address] Performed By: #### 5 7021-8 ####[facility] LABCLIA [id number] [place] [address] Eosinophils/100 WBC (Bld) 0.8 % Normal [facility] Comment on above: Order Comment: Speci men Type: BLOOD SPECIMENOrdering Facility: [facility] Address: [address] [place] [address] Performed By: #### 5 7021-8 ####[facility] LABCLIA [id number] [place] [address] Erythrocyte distribution width (RBC) [Ratio] 14.6 % Normal 11.5-15.0 [facility] Comment on above: Order Comment: Speci men Type: BLOOD SPECIMENOrdering Facility: [facility] Address: [address] [place] [address] Performed By: #### 5 7021-8 ####[facility] LABCLIA [id number] [place] [address] Hematocrit (Bld) [Volume fraction] 42.0 % Normal 36.0-46.0 [facility] Comment on above: Order Comment: Speci men Type: BLOOD SPECIMENOrdering Facility: [facility] Address: [address] [place] [address] Performed By: #### 5 7021-8 ####[facility] LABIA [id number] [place] [address] Hemoglobin (Bld) [Mass/Vol] 13.3 g/dL Normal 11.5-15.5 [facility] Comment on above: Order Comment: Speci men Type: BLOOD SPECIMENOrdering Facility: [facility] Address: [address] [place] [address] Performed By: #### 5 7021-8 ####[facility] LABCLIA [id number] [place] [address] Immature granulocytes (Bld) [#/Vol] 0.11 10*3/uL High <0.10 [facility] Comment on above: Order Comment: Speci men Type: BLOOD SPECIMENOrdering Facility: [facility] Address: [address] [place] [address] Performed By: #### 5 7021-8 ####[facility] LABCLIA [id number] [place] [address] Immature granulocytes/100 WBC (Bld) 0.8 % Normal [facility] Comment on above: Order Comment: Speci men Type: BLOOD SPECIMENOrdering Facility: [facility] Address: [address] [place] [address] Performed By: #### 5 7021-8 ####[facility] LABCLIA [id number] [place] [address] Lymphocytes (Bld) [#/Vol] 3.75 10*3/uL Normal 1.00-4.00 [facility] Comment on above: Order Comment: Speci men Type: BLOOD SPECIMENOrdering Facility: [facility] Address: [address] [place] [address] Performed By: #### 5 7021-8 ####[facility] LABCLIA [id number] [place] [address] Lymphocytes/100 WBC (Bld) 27.4 % Normal [facility] Comment on above: Order Comment: Speci men Type: BLOOD SPECIMENOrdering Facility: [facility] Address: [address] [place] [address] Performed By: #### 5 7021-8 ####[facility] LABCLIA [id number] [place] [address] MCH (RBC) [Entitic mass] 29.8 pg Normal 26.0-34.0 [facility] Comment on above: Order Comment: Speci men Type: BLOOD SPECIMENOrdering Facility: [facility] Address: [address] [place] [address] Performed By: #### 5 7021-8 ####[facility] LABCLIA [id number] [place] [address] MCHC (RBC) [Mass/Vol] 31.7 g/dL Normal 30.5-36.0 [facility] Comment on above: Order Comment: Speci men Type: BLOOD SPECIMENOrdering Facility: [facility] Address: [address] [address] Performed By: #### 5 7021-8 ####[facility] LABCLIA [id number] [place] [address] MCV (RBC) [Entitic vol] 94.0 fL Normal 80.0-100.0 [facility] Comment on above: Order Comment: Speci men Type: BLOOD SPECIMENOrdering Facility: [facility] Address: [address] [address] Performed By: #### 5 7021-8 ####[facility] LABCLIA [id number] [place] [address] Monocytes (Bld) [#/Vol] 1.07 10*3/uL High <0.87 [facility] Comment on above: Order Comment: Speci men Type: BLOOD SPECIMENOrdering Facility: [facility] Address: [address] [address] Performed By: #### 5 7021-8 ####[facility] LABCLIA [id number] [place] [address] Monocytes/100 WBC (Bld) 7.8 % Normal [facility] Comment on above: Order Comment: Speci men Type: BLOOD SPECIMENOrdering Facility: [facility] Address: [address] Performed By: #### 5 7021-8 ####[facility] LABCLIA [id number] [place] [address] Neutrophils (Bld) [#/Vol] 8.57 10*3/uL High 1.45-7.50 [facility] Comment on above: Order Comment: Speci men Type: BLOOD SPECIMENOrdering Facility: [facility] Address: [address] Performed By: #### 5 7021-8 ####[facility] LABCLIA [id number] [place] [address] Neutrophils/100 WBC (Bld) 62.8 % Normal [facility] Comment on above: Order Comment: Speci men Type: BLOOD SPECIMENOrdering Facility: [facility] Address: [address] [place] [address] Performed By: #### 5 7021-8 ####[facility] LABCLIA [id number] [place] [address] Nucleated RBC (Bld) [#/Vol] 10*3/uL Normal <0.01 [facility] Comment on above: Order Comment: Speci men Type: BLOOD SPECIMENOrdering Facility: [facility] Address: [address] [place] [address] Performed By: #### 5 7021-8 ####[facility] LABCLIA [id number] [place] [address] Nucleated RBC/100 WBC (Bld) [Ratio] 0.0 /100 WBC Normal [facility] Comment on above: Order Comment: Speci men Type: BLOOD SPECIMENOrdering Facility: [facility] Address: [address] [place] [address] Performed By: #### 5 7021-8 ####[facility] LABCLIA [id number] [place] [address] Platelet mean volume (Bld) [Entitic vol] 9.6 fL Normal 9.0-12.7 [facility] Comment on above: Order Comment: Speci men Type: BLOOD SPECIMENOrdering Facility: [facility] Address: [address] [place] [address] Performed By: #### 5 7021-8 ####[facility] LABCLIA [id number] [place] [address] Platelets (Bld) [#/Vol] 301 10*3/uL Normal 150-400 [facility] Comment on above: Order Comment: Speci men Type: BLOOD SPECIMENOrdering Facility: [facility] Address: [address] [address] Performed By: #### 5 7021-8 ####[facility] LABIA [id number] [place] [address] RBC (Bld) [#/Vol] 4.47 10*6/uL Normal 3.90-5.20 [facility] Comment on above: Order Comment: Speci men Type: BLOOD SPECIMENOrdering Facility: [facility] Address: [address] [address] Performed By: #### 5 7021-8 ####[facility] LABIA [id number] [place] [address] WBC (Bld) [#/Vol] 13.67 10*3/uL High 3.70-11.00 [facility] Comment on above: Order Comment: Speci men Type: BLOOD SPECIMENOrdering Facility: [facility] Address: [address] [place] [address] Performed By: #### 5 7021-8 ####[facility] LABIA [id number] [place] [address] CNPNon 12-08-2022 CNPN Normal [facility] Comprehensive metabolic 2000 panelon 12-08-2022 Albumin [Mass/Vol] 4.3 g/dL Normal 3.9-4.9 [facility] Comment on above: Order Comment: Speci men Type: BLOOD SPECIMENOrdering Facility: [facility] Address: [address] [place] [address] Performed By: #### 2 4323-8 ####[facility] LABIA [id number] [place] [address] ALP [Catalytic activity/Vol] 63 U/L Normal 34-123 [facility] Comment on above: Order Comment: Speci men Type: BLOOD SPECIMENOrdering Facility: [facility] Address: [address] [place] [address] Performed By: #### 2 4323-8 ####[facility] LABCLIA [id number] [place] [address] ALT [Catalytic activity/Vol] 19 U/L Normal 7-38 [facility] Comment on above: Order Comment: Speci men Type: BLOOD SPECIMENOrdering Facility: [facility] Address: [address] [place] [address] Performed By: #### 2 4323-8 ####[facility] LABCLIA [id number] [place] [address] Anion gap [Moles/Vol] 5 mmol/L Low 9-18 [facility] Comment on above: Order Comment: Speci men Type: BLOOD SPECIMENOrdering Facility: [facility] Address: [address] [place] [address] Performed By: #### 2 4323-8 ####[facility] LABCLIA [id number] [place] [address] AST [Catalytic activity/Vol] 10 U/L Low 13-35 [facility] Comment on above: Order Comment: Speci men Type: BLOOD SPECIMENOrdering Facility: [facility] Address: [address] [place] [address] Performed By: #### 2 4323-8 ####[facility] LABCLIA [id number] [place] [address] Bilirubin [Mass/Vol] 0.2 mg/dL Normal 0.2-1.3 [facility] Comment on above: Order Comment: Speci men Type: BLOOD SPECIMENOrdering Facility: [facility] Address: [address] [place] [address] Performed By: #### 2 4323-8 ####[facility] LABCLIA [id number] [place] [address] Calcium [Mass/Vol] 9.9 mg/dL Normal 8.5-10.2 [facility] Comment on above: Order Comment: Speci men Type: BLOOD SPECIMENOrdering Facility: [facility] Address: [address] [place] [address] Performed By: #### 2 4323-8 ####[facility] LABCLIA [id number] [place] [address] Chloride [Moles/Vol] 106 mmol/L High 97-105 [facility] Comment on above: Order Comment: Speci men Type: BLOOD SPECIMENOrdering Facility: [facility] Address: [address] [place] [address] Performed By: #### 2 4323-8 ####[facility] LABCLIA [id number] [place] [address] CO2 [Moles/Vol] 26 mmol/L Normal 22-30 [facility] Comment on above: Order Comment: Speci men Type: BLOOD SPECIMENOrdering Facility: [facility] Address: [address] [place] [address] Performed By: #### 2 4323-8 ####[facility] LABCLIA [id number] [place] [address] Creatinine [Mass/Vol] 0.80 mg/dL Normal 0.58-0.96 [facility] Comment on above: Order Comment: Speci men Type: BLOOD SPECIMENOrdering Facility: [facility] Address: [address] [place] [address] Performed By: #### 2 4323-8 ####[facility] LABCLIA [id number] [place] [address] ESTIMATED GLOMERULAR FILTRATION RATE 94 mL/min/1.73m??? Normal >=60 [facility] Comment on above: Order Comment: Speci men Type: BLOOD SPECIMENOrdering Facility: [facility] Address: [address] [place] [address] Result Comment: Erin mated Glomerular Filtration Rate [...] actual GFR. Performed By: #### 2 4323-8 ####[facility] LABCLIA [id number] [place] [address] Glucose [Mass/Vol] 91 mg/dL Normal 74-99 [facility] Comment on above: Order Comment: Speci men Type: BLOOD SPECIMENOrdering Facility: [facility] Address: [address] [place] [phone] Result Comment: The [place] [employer] (ADA) provides guidance for cutoff [...] Standards of Medical Care in Diabetes 2016, [place] [employer]. Diabetes Care. 2016.39(Suppl 1). Performed By: #### 2 4323-8 ####[facility] LABCLIA [id number] [place] [address] Potassium [Moles/Vol] 3.9 mmol/L Normal 3.7-5.1 [facility] Comment on above: Order Comment: Speci men Type: BLOOD SPECIMENOrdering Facility: [facility] Address: [address] [place] [phone] Performed By: #### 2 4323-8 ####[facility] LABCLIA [id number] [place] [address] Protein [Mass/Vol] 7.1 g/dL Normal 6.3-8.0 [facility] Comment on above: Order Comment: Speci men Type: BLOOD SPECIMENOrdering Facility: [facility] Address: [address] [address] Performed By: #### 2 4323-8 ####[facility] LABCLIA [id number] [place] [address] Sodium [Moles/Vol] 137 mmol/L Normal 136-144 [facility] Comment on above: Order Comment: Speci men Type: BLOOD SPECIMENOrdering Facility: [facility] Address: [address] [address] Performed By: #### 2 4323-8 ####[facility] LABCLIA [id number] [place] [address] Urea nitrogen [Mass/Vol] 20 mg/dL Normal 7-21 [facility] Comment on above: Order Comment: Speci men Type: BLOOD SPECIMENOrdering Facility: [facility] Address: [address] [address] Performed By: #### 2 4323-8 ####[facility] LABCLIA [id number] [place] [address] Ferritin SerPl-mCncon 2022 Ferritin [Mass/Vol] 26.6 ng/mL Normal 14.7-205.1 [facility] Comment on above: Order Comment: Speci men Type: BLOOD SPECIMENOrdering Facility: [facility] Address: [address] [address] Performed By: #### 5 0190-8, 2132-9, 2276-4, 2284-8 ####[facility] LABCLIA [id number] [place] [address] [place] Folate SerPl-mCncon 12-09-19 23 Folate [Mass/Vol] 2.6 ng/mL Low >4.7 [facility] Comment on above: Order Comment: Speci men Type: BLOOD SPECIMENOrdering Facility: [facility] Address: [address] [address] Performed By: #### 5 0190-8, 2131-9, 2275-4, 2283-8 ####[facility] LABIA [id number] [place] [id number] [place] Iron and Iron binding capaci panelon 12-08-2022 Iron [Mass/Vol] 48 ug/dL Normal 41-186 [facility] Comment on above: Order Comment: Speci men Type: BLOOD SPECIMENOrdering Facility: [facility] Address: [address] [place] [address] Performed By: #### 5 0190-8, 2131-9, 4, 8 ####[facility] [id number] [address] [place] Iron binding capacity [Mass/Vol] 382 ug/dL Normal 232-386 [facility] Comment on above: Order Comment: Speci men Type: BLOOD SPECIMENOrdering Facility: [facility] Address: [address] [place] [address] Performed By: #### 5 0190-8, 2131-9, 2275-4, 8 ####[facility] LABIA [id number] [address] [place] Iron/TIBC [Molar ratio] 12.6 % Low 15.0-57.0 [facility] Comment on above: Order Comment: Speci men Type: BLOOD SPECIMENOrdering Facility: [facility] Address: [address] [place] [address] Performed By: #### 5 0190-8, 2131-9, 2275-4, 8 ####[facility] [id number] [place] [address] [place] Vit B12 [facility] 0[facility] Cobalamin (Vitamin B12) [Mass/Vol] 336 pg/mL Normal 232-1245 [facility] Comment on above: Order Comment: Speci men Type: BLOOD SPECIMENOrdering Facility: [facility] Address: [address] [place] [address] Performed By: #### 5 0190-8, 2132-9, 2276-4, 2284-8 ####[facility] LABCLIA [id number] JERAD BERRIOS [address] [place] CNNURSEon 11-19-2022 CNNURSE Normal [facility] CNPNon 10-31-2022 CNPN Normal [facility] CNNURSEon 10-22-2022 CNNURSE Normal [facility] CNOVSPon 10-22-2022 CNOVSP Normal [facility] TPMT PHENOTYPE/ENZYME ACTIVI TYon 10-22-2022 TPMT ACTIVITY 33.5 U/mL Normal 24.0-44.0 [facility] Comment on above: Order Comment: Speci men Type: BLOOD SPECIMENOrdering Facility: [facility] Address: [address] [phone] Result Comment: INTE RPRETIVE INFORMATION: Thiopurine Methyltransferase, [...] was developed and its performance characteristicsdetermined by [facility]. It has not been cleared orapproved by the [place] Food and Drug Administration. This test wasperformed in a CLIA certified laboratory and is intended forclinical purposes.Performed By: [facility] [place], [place] [address] Director: Ole Love MD, PhD Performed By: #### T PMT ####[facility] [id number] [place] [address] CNPNon 10-16-2022 CNPN Normal [facility] 25(OH)D3 SerPl-mCncon 2022 25-hydroxyvitamin D3 [Mass/Vol] 28.3 ng/mL Low 31.0-80.0 [facility] Comment on above: Order Comment: Speci men Type: BLOOD SPECIMENOrdering Facility: [facility] Address: [address] [place] [address] Result Comment: Clas sification of 25 [place] Vitamin D status:Deficiency/Insufficiency: < or = 30 ng/ml.Sufficiency/Optimal Levels: 31-80 ng/mLToxicity: > 100 ng/mL.Test performed by chemiluminescent immunoassay. Performed By: #### 1 989-3 ####[facility] LABCLIA [id number] [address] CBC W Auto Differential pane l (Bld)on 10-15-2022 Basophils (Bld) [#/Vol] 0.07 10*3/uL Normal <0.11 [facility] Comment on above: Order Comment: Speci men Type: BLOOD SPECIMENOrdering Facility: [facility] Address: [address] [address] Performed By: #### 5 7021-8 ####[facility] LABCLIA [id number] [place] [address] Basophils/100 WBC (Bld) 0.6 % Normal [facility] Comment on above: Order Comment: Speci men Type: BLOOD SPECIMENOrdering Facility: [facility] Address: [address] [address] Performed By: #### 5 7021-8 ####[facility] LABCLIA [id number] [place] [address] Differential cell count method Nom (Bld) Auto Normal [facility] Comment on above: Order Comment: Speci men Type: BLOOD SPECIMENOrdering Facility: [facility] Address: [address] [address] Performed By: #### 5 7021-8 ####[facility] LABCLIA [id number] [place] [address] Eosinophils (Bld) [#/Vol] 0.16 10*3/uL Normal <0.46 [facility] Comment on above: Order Comment: Speci men Type: BLOOD SPECIMENOrdering Facility: [facility] Address: [address] [place] [address] Performed By: #### 5 7021-8 ####[facility] LABCLIA [id number] [place] [address] Eosinophils/100 WBC (Bld) 1.3 % Normal [facility] Comment on above: Order Comment: Speci men Type: BLOOD SPECIMENOrdering Facility: [facility] Address: [address] [place] [address] Performed By: #### 5 7021-8 ####[facility] LABCLIA [id number] [place] [address] Erythrocyte distribution width (RBC) [Ratio] 14.6 % Normal 11.5-15.0 [facility] Comment on above: Order Comment: Speci men Type: BLOOD SPECIMENOrdering Facility: [facility] Address: [address] [place] [address] Performed By: #### 5 7021-8 ####[facility] LABCLIA [id number] [place] [address] Hematocrit (Bld) [Volume fraction] 40.8 % Normal 36.0-46.0 [facility] Comment on above: Order Comment: Speci men Type: BLOOD SPECIMENOrdering Facility: [facility] Address: [address] [place] [address] Performed By: #### 5 7021-8 ####[facility] LABCLIA [id number] [place] [address] Hemoglobin (Bld) [Mass/Vol] 13.1 g/dL Normal 11.5-15.5 [facility] Comment on above: Order Comment: Speci men Type: BLOOD SPECIMENOrdering Facility: [facility] Address: [address] [place] [address] Performed By: #### 5 7021-8 ####[facility] LABCLIA [id number] [place] [address] Immature granulocytes (Bld) [#/Vol] 0.07 10*3/uL Normal <0.10 [facility] Comment on above: Order Comment: Speci men Type: BLOOD SPECIMENOrdering Facility: [facility] Address: [address] [place] [address] Performed By: #### 5 7021-8 ####[facility] LABCLIA [id number] [place] [address] Immature granulocytes/100 WBC (Bld) 0.6 % Normal [facility] Comment on above: Order Comment: Speci men Type: BLOOD SPECIMENOrdering Facility: [facility] Address: [address] [place] [address] Performed By: #### 5 7021-8 ####[facility] LABCLIA [id number] [place] [address] Lymphocytes (Bld) [#/Vol] 3.62 10*3/uL Normal 1.00-4.00 [facility] Comment on above: Order Comment: Speci men Type: BLOOD SPECIMENOrdering Facility: [facility] Address: [address] [place] [address] Performed By: #### 5 7021-8 ####[facility] LABCLIA [id number] [place] [address] Lymphocytes/100 WBC (Bld) 30.3 % Normal [facility] Comment on above: Order Comment: Speci men Type: BLOOD SPECIMENOrdering Facility: [facility] Address: [address] [address] Performed By: #### 5 7021-8 ####[facility] LABCLIA [id number] [place] [address] MCH (RBC) [Entitic mass] 29.2 pg Normal 26.0-34.0 [facility] Comment on above: Order Comment: Speci men Type: BLOOD SPECIMENOrdering Facility: [facility] Address: [address] [place] [address] Performed By: #### 5 7021-8 ####[facility] LABCLIA [id number] [place] [address] MCHC (RBC) [Mass/Vol] 32.1 g/dL Normal 30.5-36.0 [facility] Comment on above: Order Comment: Speci men Type: BLOOD SPECIMENOrdering Facility: [facility] Address: [address] [place] [address] Performed By: #### 5 7021-8 ####[facility] LABIA [id number] [place] [address] MCV (RBC) [Entitic vol] 90.9 fL Normal 80.0-100.0 [facility] Comment on above: Order Comment: Speci men Type: BLOOD SPECIMENOrdering Facility: [facility] Address: [address] [place] [address] Performed By: #### 5 7021-8 ####[facility] LABIA [id number] [place] [address] Monocytes (Bld) [#/Vol] 0.66 10*3/uL Normal <0.87 [facility] Comment on above: Order Comment: Speci men Type: BLOOD SPECIMENOrdering Facility: [facility] Address: [address] [place] [address] Performed By: #### 5 7021-8 ####[facility] LABCLIA [id number] [place] [address] Monocytes/100 WBC (Bld) 5.5 % Normal [facility] Comment on above: Order Comment: Speci men Type: BLOOD SPECIMENOrdering Facility: [facility] Address: [address] [place] [address] Performed By: #### 5 7021-8 ####[facility] LABCLIA [id number] [place] [address] Neutrophils (Bld) [#/Vol] 7.35 10*3/uL Normal 1.45-7.50 [facility] Comment on above: Order Comment: Speci men Type: BLOOD SPECIMENOrdering Facility: [facility] Address: [address] [place] [address] Performed By: #### 5 7021-8 ####[facility] LABCLIA [id number] [place] [address] Neutrophils/100 WBC (Bld) 61.7 % Normal [facility] Comment on above: Order Comment: Speci men Type: BLOOD SPECIMENOrdering Facility: [facility] Address: [address] [place] [address] Performed By: #### 5 7021-8 ####[facility] LABCLIA [id number] [place] [address] Nucleated RBC (Bld) [#/Vol] 10*3/uL Normal <0.01 [facility] Comment on above: Order Comment: Speci men Type: BLOOD SPECIMENOrdering Facility: [facility] Address: [address] [place] [address] Performed By: #### 5 7021-8 ####[facility] LABCLIA [id number] [place] [address] Nucleated RBC/100 WBC (Bld) [Ratio] 0.0 /100 WBC Normal [facility] Comment on above: Order Comment: Speci men Type: BLOOD SPECIMENOrdering Facility: [facility] Address: [facility] [place] [address] Performed By: #### 5 7021-8 ####[facility] LABCLIA [id number] [place] [address] Platelet mean volume (Bld) [Entitic vol] 9.7 fL Normal 9.0-12.7 [facility] Comment on above: Order Comment: Speci men Type: BLOOD SPECIMENOrdering Facility: [facility] Address: [address] [place] [address] Performed By: #### 5 7021-8 ####[facility] LABCLIA [id number] [place] [address] Platelets (Bld) [#/Vol] 295 10*3/uL Normal 150-400 [facility] Comment on above: Order Comment: Speci men Type: BLOOD SPECIMENOrdering Facility: [facility] Address: [address] [place] [address] Performed By: #### 5 7021-8 ####[facility] LABCLIA [id number] [place] [address] RBC (Bld) [#/Vol] 4.49 10*6/uL Normal 3.90-5.20 [facility] Comment on above: Order Comment: Speci men Type: BLOOD SPECIMENOrdering Facility: [facility] Address: [address] [address] Performed By: #### 5 7021-8 ####[facility] LABCLIA [id number] [place] [address] WBC (Bld) [#/Vol] 11.93 10*3/uL High 3.70-11.00 [facility] Comment on above: Order Comment: Speci men Type: BLOOD SPECIMENOrdering Facility: [facility] Address: [address] [place] [address] Performed By: #### 5 7021-8 ####[facility] LABCLIA [id number] [place] [address] CRP SerPl-ncon 10-15-2022 CRP [Mass/Vol] 0.3 mg/dL Normal <0.9 [facility] Comment on above: Order Comment: Speci men Type: BLOOD SPECIMENOrdering Facility: [facility] Address: [address] [place] [address] Performed By: #### 1 988-5, 2885-2, 2132-9 ####[facility] LABCLIA [id number] [place] [id number] [facility] Comprehensive metabolic 2000 panelon 10-15-2022 Albumin [Mass/Vol] 4.0 g/dL Normal 3.9-4.9 [facility] Comment on above: Order Comment: Speci men Type: BLOOD SPECIMENOrdering Facility: [facility] Address: [address] [place] [address] Performed By: #### 2 532-0, 66769-5 ####[facility] LABCLIA [id number] [place] [address] ALP [Catalytic activity/Vol] 59 U/L Normal 34-123 [facility] Comment on above: Order Comment: Speci men Type: BLOOD SPECIMENOrdering Facility: [facility] Address: [address] [place] [address] Performed By: #### 2 532-0, 54816-2 ####[facility] LABCLIA [id number] [place] [address] ALT [Catalytic activity/Vol] 19 U/L Normal 7-38 [facility] Comment on above: Order Comment: Speci men Type: BLOOD SPECIMENOrdering Facility: [facility] Address: [address] [place] [address] Performed By: #### 2 532-0, 96761-0 ####[facility] LABCLIA [id number] [place] [address] Anion gap [Moles/Vol] 12 mmol/L Normal 9-18 [facility] Comment on above: Order Comment: Speci men Type: BLOOD SPECIMENOrdering Facility: [facility] Address: [address] Performed By: #### 2 532-0, ####[facility] LABCLIA [id number] [place] [address] AST [Catalytic activity/Vol] 10 U/L Low 13-35 [facility] Comment on above: Order Comment: Speci men Type: BLOOD SPECIMENOrdering Facility: [facility] Address: [address] [address] Performed By: #### 2 532-0, ####[facility] LABIA [id number] [place] [address] Bilirubin [Mass/Vol] 0.2 mg/dL Normal 0.2-1.3 [facility] Comment on above: Order Comment: Speci men Type: BLOOD SPECIMENOrdering Facility: [facility] Address: [address] [address] Performed By: #### 2 532-0, ####[facility] LABIA [id number] [place] [address] Calcium [Mass/Vol] 9.6 mg/dL Normal 8.5-10.2 [facility] Comment on above: Order Comment: Speci men Type: BLOOD SPECIMENOrdering Facility: [facility] Address: [address] Performed By: #### 2 532-0, ####[facility] LABIA [id number] [place] [address] Chloride [Moles/Vol] 104 mmol/L Normal 97-105 [facility] Comment on above: Order Comment: Speci men Type: BLOOD SPECIMENOrdering Facility: [facility] Address: [address] Performed By: #### 2 532-0, ####[facility] LABCLIA [id number] [place] [address] CO2 [Moles/Vol] 21 mmol/L Low 22-30 [facility] Comment on above: Order Comment: Speci men Type: BLOOD SPECIMENOrdering Facility: [facility] Address: [address] [place] [address] Performed By: #### 2 532-0, ####[facility] LABCLIA [id number] [place] [address] Creatinine [Mass/Vol] 0.72 mg/dL Normal 0.58-0.96 [facility] Comment on above: Order Comment: Speci men Type: BLOOD SPECIMENOrdering Facility: [facility] Address: [address] [place] [address] Performed By: #### 2 532-0, ####[facility] LABCLIA [id number] [place] [address] ESTIMATED GLOMERULAR FILTRATION RATE 107 mL/min/1.73m??? Normal >=60 [facility] Comment on above: Order Comment: Speci men Type: BLOOD SPECIMENOrdering Facility: [facility] Address: [address] [place] [address] Result Comment: Erin mated Glomerular Filtration Rate [...] actual GFR. Performed By: #### 2 532-0, ####[facility] LABCLIA [id number] [place] [address] Glucose [Mass/Vol] 157 mg/dL High 74-99 [facility] Comment on above: Order Comment: Speci men Type: BLOOD SPECIMENOrdering Facility: [facility] Address: [address] [place], [place] [address] Result Comment: The [place] Diabetes Association (ADA) provides guidance for cutoff [...] Standards of Medical Care in Diabetes 2016, [place] [employer]. Diabetes Care. 2016.39(Suppl 1). Performed By: #### 2 532-0, 14181-3 ####[facility] LABCLIA [id number] [place] [address] Potassium [Moles/Vol] 3.8 mmol/L Normal 3.7-5.1 [facility] Comment on above: Order Comment: Speci men Type: BLOOD SPECIMENOrdering Facility: [facility] Address: [address] [place], [place] [address] Performed By: #### 2 532-0, 27881-6 ####[facility] LABCLIA [id number] [place] [address] Protein [Mass/Vol] 6.8 g/dL Normal 6.3-8.0 [facility] Comment on above: Order Comment: Speci men Type: BLOOD SPECIMENOrdering Facility: [facility] Address: [address] [place], [place] [address] Performed By: #### 2 532-0, ####[facility] LABCLIA [id number] [place] [address] Sodium [Moles/Vol] 137 mmol/L Normal 136-144 [facility] Comment on above: Order Comment: Speci men Type: BLOOD SPECIMENOrdering Facility: [facility] Address: [address] [address] Performed By: #### 2 532-0, 61810-9 ####[facility] LABIA [id number] [place] [address] Urea nitrogen [Mass/Vol] 16 mg/dL Normal 7-21 [facility] Comment on above: Order Comment: Speci men Type: BLOOD SPECIMENOrdering Facility: [facility] Address: [address] [address] Performed By: #### 2 532-0, 44534-5 ####[facility] [id number] [place] [address] ESR Westergren method (Bld) [Velocity]on 10-15-2022 ESR (Bld) [Velocity] 27 mm/h High 0-20 [facility] Comment on above: Order Comment: Speci men Type: BLOOD SPECIMENOrdering Facility: [facility] Address: [address] [place] [address] Performed By: #### 4 537-7 ####[facility] LABIA [id number] [address] IMMUNOFIXATION SCREEN, SERUM on 10-15-2022 MPA RESULT No M protein is identified. Normal No M protein is identified. [facility] Comment on above: Order Comment: Speci men Type: BLOOD SPECIMENOrdering Facility: [facility] Address: [address] [place] [address] Performed By: #### I FESC ####[facility] LABIA [id number] [address] [place] STAFF REVIEW (MPA) Reviewed by Chapito holt MD, Ph.D ([id number]) Normal [facility] Comment on above: Order Comment: Speci men Type: BLOOD SPECIMENOrdering Facility: [facility] Address: [address] [place] [address] Performed By: #### I FESC ####[facility] LABCLIA [id number] [place] [address] [place] IMMUNOGLOBULINS GAMon 2022 IgA [Mass/Vol] 184 mg/dL Normal 70-400 [facility] Comment on above: Order Comment: Speci men Type: BLOOD SPECIMENOrdering Facility: [facility] Address: [address] [place] [address] Performed By: #### S ERIMM ####[facility] LABCLIA [id number] [place] [address] [place] IgG [Mass/Vol] 540 mg/dL Low 700-1600 [facility] Comment on above: Order Comment: Speci men Type: BLOOD SPECIMENOrdering Facility: [facility] Address: [address] [place] [address] Performed By: #### S ERIMM ####[facility] LABCLIA [id number] [place] [address] [place] IgM [Mass/Vol] 504 mg/dL High 40-230 [facility] Comment on above: Order Comment: Speci men Type: BLOOD SPECIMENOrdering Facility: [facility] Address: [address] [place] [address] Performed By: #### S ERIMM ####[facility] LABIA [id number] [place] [address] [place] KAPPA/FARMER,FREE,SERon 2022 Immunoglobulin light chains.kappa.free (S) [Mass/Vol] 14.2 mg/L Normal 3.3-19.4 [facility] Comment on above: Order Comment: Speci men Type: BLOOD SPECIMENOrdering Facility: [facility] Address: [address] [place] [address] Result Comment: Rare ly, increased serum free light chains levels may not be detected or accurately quantified due to prozone phenomenon or in high viscosity samples using this immunoturbidimetric assay. Correlation with other laboratory results and clinical findings is recommended.The Tatums Free Light Chain was performed using the Binding Site Optilite immunoturbidimetric method. Result obtained with different assay methods or kits cannot be used interchangeably. Performed By: #### K LFRS ####[facility] LABCLIA [id number] [place] [address] [place] Immunoglobulin light chains.kappa/Immunog lobulin light chains.lambda (S) [Mass ratio] 1.34 Normal 0.26-1.65 [facility] Comment on above: Order Comment: Speci men Type: BLOOD SPECIMENOrdering Facility: [facility] Address: [address] [place] [address] Performed By: #### K LFRS ####[facility] LABIA [id number] [address] [place] Immunoglobulin light chains.lambda.free [Mass/Vol] 10.6 mg/L Normal 5.7-26.3 [facility] Comment on above: Order Comment: Speci men Type: BLOOD SPECIMENOrdering Facility: [facility] Address: [address] [place] [address] Result Comment: Rare ly, increased serum free [...] used interchangeably. Performed By: #### K LFRS ####[facility] LABIA [id number] [place] [address] [place] LDH SerPl-cCncon 10-15-2022 LDH [Catalytic activity/Vol] 155 U/L Normal 135-214 [facility] Comment on above: Order Comment: Speci men Type: BLOOD SPECIMENOrdering Facility: [facility] Address: [address] [place] [address] Performed By: #### 2 532-0, 02440-2 ####[facility] LABCLIA [id number] [place] [address] PROTEIN ELECTROPHORESIS SERU M WITH DANA (P)on 10-15-2022 Albumin [Mass/Vol] 3.92 g/dL Normal 3.43-5.41 [facility] Comment on above: Order Comment: Speci men Type: BLOOD SPECIMENOrdering Facility: [facility] Address: [address] [address] Performed By: #### L [id number] ####[facility] LABCLIA [id number] [place] [address] [place] Alpha 1 globulin Elph [Mass/Vol] 0.34 g/dL Normal 0.18-0.43 [facility] Comment on above: Order Comment: Speci men Type: BLOOD SPECIMENOrdering Facility: [facility] Address: [address] [place] [address] Performed By: #### L [id number] ####[facility] LABCLIA [id number] [place] [address] [place] Alpha 2 globulin Elph [Mass/Vol] 0.84 g/dL Normal 0.42-0.98 [facility] Comment on above: Order Comment: Speci men Type: BLOOD SPECIMENOrdering Facility: [facility] Address: [address] [place] [address] Performed By: #### L [id number] ####[facility] LABCLIA [id number] [place] [address] [place] Beta globulin Elph [Mass/Vol] 0.92 g/dL Normal 0.61-1.17 [facility] Comment on above: Order Comment: Speci men Type: BLOOD SPECIMENOrdering Facility: [facility] Address: [address] [address] Performed By: #### L [id number] ####[facility] LABCLIA [id number] [address] STATES [facility] COMMENT (SERUM PROT ELECTRO) Monoclonal Protein analysis (immunofixation) is not indicated. Normal [facility] Comment on above: Order Comment: Speci men Type: BLOOD SPECIMENOrdering Facility: [facility] Address: [address] [place] [address] Performed By: #### L [id number] ####[facility] LABIA [id number] [address] Gamma globulin Elph [Mass/Vol] 0.68 g/dL Normal 0.53-1.51 [facility] Comment on above: Order Comment: Speci men Type: BLOOD SPECIMENOrdering Facility: [facility] Address: [address] [place] [address] Performed By: #### L [id number] ####[facility] [id number] [address] M-PROTEIN LOCATION Normal [facility] Comment on above: Order Comment: Speci men Type: BLOOD SPECIMENOrdering Facility: [facility] Address: [address] [place] [address] Result Comment: Not Applicable. Performed By: #### L [id number] ####[facility] LABIA [id number] [address] [place] Protein Fractions [Interp] No definitive M protein is identified on protein electrophoresis. Normal No definitive M protein is identified on protein electrophore sis. [facility] Comment on above: Order Comment: Speci men Type: BLOOD SPECIMENOrdering Facility: [facility] Address: [address] [place] [address] Performed By: #### L [id number] ####[facility] LABIA [id number] [address] Protein.monoclonal Elph [Mass/Vol] 0.00 g/dL Normal <=0.00 [facility] Comment on above: Order Comment: Speci men Type: BLOOD SPECIMENOrdering Facility: [facility] Address: [address] [place] [address] Performed By: #### L [id number] ####[facility] LABIA [id number] [address] SPE STAFF REVIEW Reviewed by Chapito holt MD, Ph.D ([id number]) Normal [facility] Comment on above: Order Comment: Speci men Type: BLOOD SPECIMENOrdering Facility: [facility] Address: [address] [place] [address] Performed By: #### L [id number] ####[facility] LABIA [id number] [address] [place] Prot SerPl-mCncon 10-15-2022 Protein [Mass/Vol] 6.7 g/dL Normal 6.3-8.0 [facility] Comment on above: Order Comment: Speci men Type: BLOOD SPECIMENOrdering Facility: [facility] Address: [address] [place] [address] Performed By: #### 1 988-5, 2885-2, 2132-01 ####[facility] LABIA [id number] [address] Vit B12 SerPl-mCncon 023 Cobalamin (Vitamin B12) [Mass/Vol] 368 pg/mL Normal 232-1245 [facility] Comment on above: Order Comment: Speci men Type: BLOOD SPECIMENOrdering Facility: [facility] Address: [address] [place], [place] [address] Performed By: #### 1 988-5, 2885-2, 2132-01 ####[facility] LABIA [id number] [place] [address] [place] CBC AUTO DIFFon 09-24-2022 BASO # 0.1 103/ul Normal 0.0-0.1 [facility] Comment on above: Performed By: #### U AMIC #### [facility] [address] [address] [address] Manda [place] Basophils/100 WBC (Bld) 0.6 % Normal 0.2-2.0 [facility] Comment on above: Performed By: #### U AMIC #### [facility] [address] [address] [address] Manda [place] EO # 0.1 103/ul Normal 0.0-0.7 [facility] Comment on above: Performed By: #### U AMIC #### [facility] [address] [address] [address] Manda [place] Eosinophils/100 WBC (Bld) 0.6 % Critically low 0.9-7.0 [facility] Comment on above: Performed By: #### U AMIC #### [facility] [address] [address] [address] Manda [place] Erythrocyte distribution width (RBC) [Ratio] 14.6 % Normal 11.0-15.0 [facility] Comment on above: Performed By: #### U AMIC #### [facility] [address] [address] [address] Manda [place] Hematocrit (Bld) [Volume fraction] 43.4 % Normal 36.0-48.0 [facility] Comment on above: Performed By: #### U AMIC #### [facility] [address] [address] [address] Manda [place] Hemoglobin (Bld) [Mass/Vol] 13.7 g/dL Normal 12.0-16.0 [facility] Comment on above: Performed By: #### U AMIC #### [facility] [address] [address] [address] Manda York IG # 0.12 10e3/ul Critically high 0.00-0.03 [facility] Comment on above: Performed By: #### U AMIC #### [facility] [address] [address] [address] Manda York IG % 0.8 % Critically high 0.0-0.5 [facility] Comment on above: Performed By: #### U AMIC #### [facility] [address] [address] [address] Manda York LYMPH # 2.6 103/ul Normal 1.2-3.8 [facility] Comment on above: Performed By: #### U AMIC #### [facility] [address] [address] [address] Manda [place] Lymphocytes/100 WBC (Bld) 18.3 % Critically low 20.5-60.0 [facility] Comment on above: Performed By: #### U AMIC #### [facility] [address] [address] [address] Manda [place] MANUAL DIFF REQ NO Normal [facility] Comment on above: Performed By: #### U AMIC #### [facility] [address] [place] [address] Dr. Manda [place] MCH (RBC) [Entitic mass] 29.0 pg Normal 26.7-34.0 [facility] Comment on above: Performed By: #### U AMIC #### [facility] [address] [place] [address] Dr. Manda [place] MCHC (RBC) [Mass/Vol] 31.6 g/dL Normal 29.9-35.2 [facility] Comment on above: Performed By: #### U AMIC #### [facility] [address] [address] [address] Manda [place] MCV (RBC) [Entitic vol] 91.8 fL Normal 81.0-99.0 [facility] Comment on above: Performed By: #### U AMIC #### [facility] [address] [address] [address] Manda York MONO # 0.7 103/ul Normal 0.3-0.8 [facility] Comment on above: Performed By: #### U AMIC #### [facility] [address] [place] [address] Dr. Manda York Monocytes/100 WBC (Bld) 5.1 % Normal 1.7-12.0 [facility] Comment on above: Performed By: #### U AMIC #### [facility] [address] [address] [address] Manda York NEUT # 10.6 103/ul Critically high 1.4-6.5 [facility] Comment on above: Performed By: #### U AMIC #### [facility] [address] [address] [address] Manda York Neutrophils/100 WBC (Bld) 74.6 % Normal 43.0-75.0 [facility] Comment on above: Performed By: #### U AMIC #### [facility] [address] [address] [address] Manda [place] Platelet mean volume (Bld) [Entitic vol] 9.4 fL Critically low 9.5-13.5 [facility] Comment on above: Performed By: #### U AMIC #### [facility] [address] [place] [address] Dr. Manda York PLT 307 103/ul Normal 150-450 [facility] Comment on above: Performed By: #### U AMIC #### [facility] [address] [address] [address] Manda York RBC 4.73 106/ul Normal 4.20-5.40 [facility] Comment on above: Performed By: #### U AMIC #### [facility] [address] [place] [address] Dr. Manda York WBC 14.2 103/ul Critically high 4.0-11.0 [facility] Comment on above: Performed By: #### U AMIC #### [facility] [address] [address] [address] Manda York CNNURSEon 09-24-2022 CNNURSE Normal [facility] FREE T4on 09-24-2022 Free T4 [Mass/Vol] 1.31 ng/dL Normal 0.76-1.46 [facility] Comment on above: Performed By: #### F T4 #### [facility] [address] [place] [address] Dr. Manda [place] GLYCOHEMOGLOBIN A1Con 2022 ADA RECOMMENDATION SEE BELOW Normal [facility] Comment on above: Result Comment: ADA RECOMMENDED LIMIT 4.0 - 6.0 ADA THERAPEUTIC TARGET < 7.0 ACTION SUGGESTED > 7.0 Performed By: #### A 1C #### [facility] [address] [place] [address] Dr. Manda York Glucose [Mass/Vol] 120 mg/dL Normal [facility] Comment on above: Performed By: #### A 1C #### [facility] [address] [place] [address] Dr. Manda York HbA1c (Bld) [Mass fraction] 5.8 % Normal 4.5-6.2 [facility] Comment on above: Performed By: #### A 1C #### [facility] [address] [place] [address] Dr. Manda [place] PREG QUANT HCGon 09-24-2022 HCG QUANT <1 Normal [facility] Comment on above: Performed By: #### F T4 #### [facility] [address] [place] [address] Dr. Manda York HCG RANGE SEE BELOW Normal [facility] Comment on above: Result Comment: 5-50 0.2-1 WEEK 50-500 1-2 WEEKS 100-5,000 2-3 WEEKS 500-10,000 3-4 WEEKS 1,000-50,000 4-5 WEEKS 10,000-100,000 5-6 WEEKS 15,000-200,000 6-8 WEEKS 10,000-100,000 2-3 MONTHS Performed By: #### F T4 #### [facility] [address] [place] [address] Dr. Manda [place] PROTIMEon 09-24-2022 INR Coag (PPP) [Relative time] {INR} Normal [facility] Comment on above: Performed By: #### F T4 #### [facility] [address] [place] [address] Dr. Manda York INR GUIDELINES SEE BELOW Normal [facility] Comment on above: Result Comment: SHERRY RED INR: 2.0 - 3.0 CONDITIONS NOT LISTED BELOW 2.5 - 3.5 FOR PROSTHETIC HEART VALVE REPLACEMENT 2.5 - 3.5 RECURRENT THROMBOSIS Performed By: #### F T4 #### [facility] [address] [address] [address] Manda York PT Coag (PPP) [Time] 9.6 s Normal 9.0-11.6 [facility] Comment on above: Performed By: #### F T4 #### [facility] [address] [address] [address] Manda York PTTon 09-24-2022 aPTT Coag (Bld) [Time] 28.2 s Normal 22.3-36.2 [facility] Comment on above: Performed By: #### F T4 #### [facility] [address] [place] [address] Dr. Manda York TSHon 09-24-2022 TSH 0.300 uIU/mL Critically low 0.358-3.740 [facility] Comment on above: Performed By: #### F T4 #### [facility] [address] [place] [address] Dr. Manda York US PELVIS TRANSVAGon 023 [...] AURORA SHAIKH Date: 2022-09-24 17:50 Normal [facility] PAP ACOG PANEL 2: 30 to 65on 09-18-2022 . . Normal [facility] Comment on above: Result Comment: Perf ormed at: WB Performed By: #### F T4 #### [facility] [address] [place] [address] Dr. Manda York Age Gdln ACOG Testing 30-65 [facility] Comment on above: Performed By: #### F T4 #### [facility] [address] [address] [address] Manda York DIAGNOSIS: Comment Normal [facility] Comment on above: Result Comment: NEGA TIVE FOR INTRAEPITHELIAL LESION OR MALIGNANCY. Performed at: WB Performed By: #### F T4 #### [facility] [address] [address] [address] Manda York HPV Aptima Negative Normal Negative [facility] Comment on above: Result Comment: This nucleic acid amplification test detects fourteen high-risk HPV types (16,18,31,33,35,39,45,51,52,56,58,59,66,68) without differentiation. Performed at: =G Performed By: #### F T4 #### [facility] [address] [address] [address] Manda York HPV Genotype Reflex Comment Normal [facility] Comment on above: Result Comment: Crit eria not met, HPV Genotype not performed. Performed at: WB Performed By: #### F T4 #### [facility] [address] [place] [address] Dr. Manda York Methodology: Comment Normal [facility] Comment on above: Result Comment: This liquid based ThinPrep(R) pap test was screened with the use of an image guided system. Performed at: WB Performed By: #### F T4 #### [facility] [address] [address] [address] Manda York Note: Comment Normal [facility] Comment on above: Result Comment: The [...] WB Performed By: #### F T4 #### [facility] [address] [place], [place] [address] Dr. Manda York Performed by: Comment Normal [facility] Comment on above: Result Comment: Lorena Peters, Catia Designer (ASCP) Performed at: WB Performed By: #### F T4 #### [facility] [address] [place], [place] [address] Dr. Manda York Specimen adequacy: Comment Normal [facility] Comment on above: Result Comment: Sati sfactory for evaluation. Endocervical and/or squamous metaplastic cells (endocervical component) are present. Performed at: WB Performed By: #### F T4 #### [facility] [address] [address] [address] Manda York CNPNon 09-08-2022 CNPN Normal [facility] MG MAMM SCREEN 3D MARK CADon 09-01-2022 MG MAMM SCREEN 3D MARK CAD Patient: JONES HALEY Exam Date: 09/01/2022 : 1980 Gender:F Ordering : DR MADELAINE FERRIS . Admission #: [id number] Family : Order #: [id number] CLICK HERE TO VIEW EXAM RADIOLOGY REPORT [...] stomach cancer at age 56. LOCATION: [facility] BREAST COMPOSITION: Scattered areas fibroglandular density. [...] Yusuf M.D. on 09/02/2022 at 12:32 Normal [facility] CNNURSEon 08-27-2022 CNNURSE Normal [facility] CNOVSPon 08-27-2022 CNOVSP Normal [facility] CNPNon 08-19-2022 CNPN Normal [facility] 25([place])[facility] 25-hydroxyvitamin D3 [Mass/Vol] 33.1 ng/mL Normal 31.0-80.0 [facility] Comment on above: Order Comment: Speci men Type: BLOOD SPECIMENOrdering Facility: [facility] Address: [address] [place] [address] Result Comment: Clas sification of 25 [place] Vitamin D status:Deficiency/Insufficiency: < or = 30 ng/ml.Sufficiency/Optimal Levels: 31-80 ng/mLToxicity: > 100 ng/mL.Test performed by chemiluminescent immunoassay. Performed By: #### 1 989-3 ####[facility] LABIA [id number] [address] [facility] B2 Microglob [facility] Mset-9-Zhjdywizisrlu [Mass/Vol] 1.6 ug/mL Normal 0.8-2.4 [facility] Comment on above: Order Comment: Speci moo Type: BLOOD SPECIMENOrdering Facility: [facility] Address: [address] [place] [address] Result Comment: Beta -2 Microglobulin test is performed using the [employer] immunoturbidimetric method. Results obtained with different methods or kits cannot be used interchangeably. Performed By: #### 1 952-1, 1988-5, 2885-2, 2132-9 ####[facility] LABCLIA [id number] [address] [place] CBC W Auto Differential pane l (Bld)on 08-18-2022 Basophils (Bld) [#/Vol] 0.03 10*3/uL Normal <0.11 [facility] Comment on above: Order Comment: Speci men Type: BLOOD SPECIMENOrdering Facility: [facility] Address: [address] [address] Performed By: #### 5 7021-8 ####[facility] LABCLIA [id number] [place] [address] Basophils/100 WBC (Bld) 0.2 % Normal [facility] Comment on above: Order Comment: Speci men Type: BLOOD SPECIMENOrdering Facility: [facility] Address: [address] [address] Performed By: #### 5 7021-8 ####[facility] LABCLIA [id number] [place] [address] Differential cell count method Nom (Bld) Auto Normal [facility] Comment on above: Order Comment: Speci men Type: BLOOD SPECIMENOrdering Facility: [facility] Address: [address] [address] Performed By: #### 5 7021-8 ####[facility] LABCLIA [id number] [place] [address] Eosinophils (Bld) [#/Vol] 0.08 10*3/uL Normal <0.46 [facility] Comment on above: Order Comment: Speci men Type: BLOOD SPECIMENOrdering Facility: [facility] Address: [address] [address] Performed By: #### 5 7021-8 ####[facility] LABCLIA [id number] [place] [address] Eosinophils/100 WBC (Bld) 0.5 % Normal [facility] Comment on above: Order Comment: Speci men Type: BLOOD SPECIMENOrdering Facility: [facility] Address: [address] [address] Performed By: #### 5 7021-8 ####[facility] LABCLIA [id number] [place] [address] Erythrocyte distribution width (RBC) [Ratio] 14.6 % Normal 11.5-15.0 [facility] Comment on above: Order Comment: Speci men Type: BLOOD SPECIMENOrdering Facility: [facility] Address: [address] [place] [address] Performed By: #### 5 7021-8 ####[facility] LABIA [id number] [place] [address] Hematocrit (Bld) [Volume fraction] 41.1 % Normal 36.0-46.0 [facility] Comment on above: Order Comment: Speci men Type: BLOOD SPECIMENOrdering Facility: [facility] Address: [address] [place] [address] Performed By: #### 5 7021-8 ####[facility] LABIA [id number] [place] [address] Hemoglobin (Bld) [Mass/Vol] 13.1 g/dL Normal 11.5-15.5 [facility] Comment on above: Order Comment: Speci men Type: BLOOD SPECIMENOrdering Facility: [facility] Address: [address] [place] [address] Performed By: #### 5 7021-8 ####[facility] LABIA [id number] [place] [address] Immature granulocytes (Bld) [#/Vol] 0.11 10*3/uL High <0.10 [facility] Comment on above: Order Comment: Speci men Type: BLOOD SPECIMENOrdering Facility: [facility] Address: [address] [place] [address] Performed By: #### 5 7021-8 ####[facility] LABIA [id number] [place] [address] Immature granulocytes/100 WBC (Bld) 0.7 % Normal [facility] Comment on above: Order Comment: Speci men Type: BLOOD SPECIMENOrdering Facility: [facility] Address: [address] [address] Performed By: #### 5 7021-8 ####[facility] LABCLIA [id number] [place] [address] Lymphocytes (Bld) [#/Vol] 3.19 10*3/uL Normal 1.00-4.00 [facility] Comment on above: Order Comment: Speci men Type: BLOOD SPECIMENOrdering Facility: [facility] Address: [address] [place] [address] Performed By: #### 5 7021-8 ####[facility] LABIA [id number] [place] [address] Lymphocytes/100 WBC (Bld) 21.7 % Normal [facility] Comment on above: Order Comment: Speci men Type: BLOOD SPECIMENOrdering Facility: [facility] Address: [address] [place] [address] Performed By: #### 5 7021-8 ####[facility] LABIA [id number] [place] [address] MCH (RBC) [Entitic mass] 28.9 pg Normal 26.0-34.0 [facility] Comment on above: Order Comment: Speci men Type: BLOOD SPECIMENOrdering Facility: [facility] Address: [address] [place] [address] Performed By: #### 5 7021-8 ####[facility] LABIA [id number] [place] [address] MCHC (RBC) [Mass/Vol] 31.9 g/dL Normal 30.5-36.0 [facility] Comment on above: Order Comment: Speci men Type: BLOOD SPECIMENOrdering Facility: [facility] Address: [address] [place] [address] Performed By: #### 5 7021-8 ####[facility] LABIA [id number] [place] [address] MCV (RBC) [Entitic vol] 90.7 fL Normal 80.0-100.0 [facility] Comment on above: Order Comment: Speci men Type: BLOOD SPECIMENOrdering Facility: [facility] Address: [address] [place] [address] Performed By: #### 5 7021-8 ####[facility] LABCLIA [id number] [place] [address] Monocytes (Bld) [#/Vol] 0.87 10*3/uL High <0.87 [facility] Comment on above: Order Comment: Speci men Type: BLOOD SPECIMENOrdering Facility: [facility] Address: [address] [place] [address] Performed By: #### 5 7021-8 ####[facility] LABCLIA [id number] [place] [address] Monocytes/100 WBC (Bld) 5.9 % Normal [facility] Comment on above: Order Comment: Speci men Type: BLOOD SPECIMENOrdering Facility: [facility] Address: [address] [place] [address] Performed By: #### 5 7021-8 ####[facility] LABCLIA [id number] [place] [address] Neutrophils (Bld) [#/Vol] 10.44 10*3/uL High 1.45-7.50 [facility] Comment on above: Order Comment: Speci men Type: BLOOD SPECIMENOrdering Facility: [facility] Address: [address] [place] [address] Performed By: #### 5 7021-8 ####[facility] LABCLIA [id number] [place] [address] Neutrophils/100 WBC (Bld) 71.0 % Normal [facility] Comment on above: Order Comment: Speci men Type: BLOOD SPECIMENOrdering Facility: [facility] Address: [address] [place] [address] Performed By: #### 5 7021-8 ####[facility] LABCLIA [id number] [place] [address] Nucleated RBC (Bld) [#/Vol] 10*3/uL Normal <0.01 [facility] Comment on above: Order Comment: Speci men Type: BLOOD SPECIMENOrdering Facility: [facility] Address: [address] [place] [address] Performed By: #### 5 7021-8 ####[facility] LABCLIA [id number] [place] [address] Nucleated RBC/100 WBC (Bld) [Ratio] 0.0 /100 WBC Normal [facility] Comment on above: Order Comment: Speci men Type: BLOOD SPECIMENOrdering Facility: [facility] Address: [address] [place] [address] Performed By: #### 5 7021-8 ####[facility] LABIA [id number] [place] [address] Platelet mean volume (Bld) [Entitic vol] 9.8 fL Normal 9.0-12.7 [facility] Comment on above: Order Comment: Speci men Type: BLOOD SPECIMENOrdering Facility: [facility] Address: [address] [place] [address] Performed By: #### 5 7021-8 ####[facility] LABCLIA [id number] [place] [address] Platelets (Bld) [#/Vol] 309 10*3/uL Normal 150-400 [facility] Comment on above: Order Comment: Speci men Type: BLOOD SPECIMENOrdering Facility: [facility] Address: [address] [place], [place] [id number] Performed By: #### 5 7021-8 ####[facility] LABCLIA [id number] [place] [address] RBC (Bld) [#/Vol] 4.53 10*6/uL Normal 3.90-5.20 [facility] Comment on above: Order Comment: Speci men Type: BLOOD SPECIMENOrdering Facility: [facility] Address: [address] [place] [address] Performed By: #### 5 7021-8 ####[facility] LABCLIA [id number] [place] [address] WBC (Bld) [#/Vol] 14.72 10*3/uL High 3.70-11.00 [facility] Comment on above: Order Comment: Speci men Type: BLOOD SPECIMENOrdering Facility: [facility] Address: [address] [place] [address] Performed By: #### 5 7021-8 ####[facility] LABCLIA [id number] [place] [address] CRP [facility] CRP [Mass/Vol] 0.3 mg/dL Normal <0.9 [facility] Comment on above: Order Comment: Speci men Type: BLOOD SPECIMENOrdering Facility: [facility] Address: [address] [place] [address] Performed By: #### 1 952-1, 1987-5, 2885-2, 213-9 ####[facility] LABCLIA [id number] [place] [address] [place] Calcium.ionized [Moles/Vol]o n 08-18-2022 Calcium.ionized (Bld) [Mass/Vol] 1.29 mmol/L Normal 1.08-1.30 [facility] Comment on above: Order Comment: Speci men Type: BLOOD SPECIMENOrdering Facility: [facility] Address: [address] [place] [address] Performed By: #### 1 995-0 ####[facility] LABCLIA [id number] [place] [address] [place] Calcium.ionized adjusted to pH 7.4 (Bld) [Moles/Vol] 1.27 mmol/L Normal 1.08-1.30 [facility] Comment on above: Order Comment: Speci men Type: BLOOD SPECIMENOrdering Facility: [facility] Address: [address] [place] [address] Performed By: #### 1 995-0 ####[facility] LABCLIA [id number] [facility] [id number] [id number] [place] Comprehensive metabolic 2000 panelon 08-18-2022 Albumin [Mass/Vol] 4.2 g/dL Normal 3.9-4.9 [facility] Comment on above: Order Comment: Speci men Type: BLOOD SPECIMENOrdering Facility: [facility] Address: [address] [place] [address] Performed By: #### 2 532-0, 2777-1, 3084-1, 38115-6 ####[facility] LABCLIA [id number] [place] [address] ALP [Catalytic activity/Vol] 66 U/L Normal 34-123 [facility] Comment on above: Order Comment: Speci men Type: BLOOD SPECIMENOrdering Facility: [facility] Address: [address] [place] [address] Performed By: #### 2 532-0, 2777-1, 3084-1, 02238-1 ####[facility] LABCLIA [id number] [place] [address] ALT [Catalytic activity/Vol] 22 U/L Normal 7-38 [facility] Comment on above: Order Comment: Speci men Type: BLOOD SPECIMENOrdering Facility: [facility] Address: [address] [place] [address] Performed By: #### 2 532-0, 2777-1, 3084-1, 27564-7 ####[facility] LABCLIA [id number] [place] [address] Anion gap [Moles/Vol] 11 mmol/L Normal 9-18 [facility] Comment on above: Order Comment: Speci men Type: BLOOD SPECIMENOrdering Facility: [facility] Address: [address] [place] [address] Performed By: #### 2 532-0, 7-1, 3083-, ####[facility] LABCLIA [id number] [place] [address] AST [Catalytic activity/Vol] 9 U/L Low 13-35 [facility] Comment on above: Order Comment: Speci men Type: BLOOD SPECIMENOrdering Facility: [facility] Address: [address] [place] [address] Performed By: #### 2 532-0, 2777-1, 3083-, ####[facility] LABCLIA [id number] [place] [address] Bilirubin [Mass/Vol] 0.2 mg/dL Normal 0.2-1.3 [facility] Comment on above: Order Comment: Speci men Type: BLOOD SPECIMENOrdering Facility: [facility] Address: [address] [place] [address] Performed By: #### 2 532-0, 2776-1, 3083-05, ####[facility] LABIA [id number] [place] [address] Calcium [Mass/Vol] 9.3 mg/dL Normal 8.5-10.2 [facility] Comment on above: Order Comment: Speci men Type: BLOOD SPECIMENOrdering Facility: [facility] Address: [address] [place] [address] Performed By: #### 2 532-0, 277-1, 3083-05, ####[facility] LABCLIA [id number] [place] [address] Chloride [Moles/Vol] 106 mmol/L High 97-105 [facility] Comment on above: Order Comment: Speci men Type: BLOOD SPECIMENOrdering Facility: [facility] Address: [address] [id number] Performed By: #### 2 532-0, 277-1, 3083-05, ####[facility] LABCLIA [id number] [place] [address] CO2 [Moles/Vol] 23 mmol/L Normal 22-30 [facility] Comment on above: Order Comment: Speci men Type: BLOOD SPECIMENOrdering Facility: [facility] Address: [address] [place], [place] [phone] Performed By: #### 2 532-0, 277-1, 3083-05, ####[facility] LABCLIA [id number] [place] [address] Creatinine [Mass/Vol] 0.68 mg/dL Normal 0.58-0.96 [facility] Comment on above: Order Comment: Speci men Type: BLOOD SPECIMENOrdering Facility: [facility] Address: [address] [place], [place] [id number] Performed By: #### 2 532-0, 2771, 3083-05, ####[facility] LABCLIA [id number] [place] [address] ESTIMATED GLOMERULAR FILTRATION RATE 112 mL/min/1.73m??? Normal >=60 [facility] Comment on above: Order Comment: Speci men Type: BLOOD SPECIMENOrdering Facility: [facility] Address: [address] [place], [place] [phone] Result Comment: Erin mated Glomerular Filtration Rate [...] GFR. Performed By: #### 2 532-0, 2777-1, 3084-1, 62044-7 ####[facility] LABCLIA [id number] [place] [address] Glucose [Mass/Vol] 119 mg/dL High 74-99 [facility] Comment on above: Order Comment: Speci men Type: BLOOD SPECIMENOrdering Facility: [facility] Address: [address] [place], [place] [phone] Result Comment: The [place] [employer] Association (ADA) provides guidance for cutoff [...] Standards of Medical Care in Diabetes 2016, [place] [employer]. Diabetes Care. 2016.39(Suppl 1). Performed By: #### 2 532-0, 2777-1, 3083-1, 54725-8 ####[facility] LABIA [id number] [place] [address] Potassium [Moles/Vol] 3.7 mmol/L Normal 3.7-5.1 [facility] Comment on above: Order Comment: Speci men Type: BLOOD SPECIMENOrdering Facility: [facility] Address: [place] [address] Performed By: #### 2 532-0, 2777-1, 3084-1, 08759-5 ####[facility] LABIA [id number] [place] [address] Protein [Mass/Vol] 7.1 g/dL Normal 6.3-8.0 [facility] Comment on above: Order Comment: Speci men Type: BLOOD SPECIMENOrdering Facility: [facility] Address: [address] [place] [id number] Performed By: #### 2 532-0, 2777-1, 3084-1, 95004-1 ####[facility] LABCLIA [id number] [place] [address] Sodium [Moles/Vol] 140 mmol/L Normal 136-144 [facility] Comment on above: Order Comment: Speci men Type: BLOOD SPECIMENOrdering Facility: [facility] Address: [address] [place] [address] Performed By: #### 2 532-0, 2777-1, 3084-1, 75598-0 ####[facility] LABCLIA [id number] [place] [address] Urea nitrogen [Mass/Vol] 11 mg/dL Normal 7-21 [facility] Comment on above: Order Comment: Speci men Type: BLOOD SPECIMENOrdering Facility: [facility] Address: [address] [place] [address] Performed By: #### 2 532-0, 2777-1, 3084-1, 46929-8 ####[facility] LABCLIA [id number] [place] [address] ESR Westergren method (Bld) [Velocity]on 08-18-2022 ESR (Bld) [Velocity] 25 mm/h High 0-20 [facility] Comment on above: Order Comment: Speci men Type: BLOOD SPECIMENOrdering Facility: [facility] Address: [address] [place] [address] Performed By: #### 4 537-7 ####[facility] LABCLIA [id number] [place] [id number] [place] IMMUNOFIXATION SCREEN, SERUM on 08-18-2022 MPA RESULT No M protein is identified. Normal No M protein is identified. [facility] Comment on above: Order Comment: Speci men Type: BLOOD SPECIMENOrdering Facility: [facility] Address: [address] [place] [address] Performed By: #### I FES ####[facility] LABCLIA [id number] [address] [place] STAFF REVIEW (MPA) Reviewed by Dr. Gregg Ortez MD Normal [facility] Comment on above: Order Comment: Speci men Type: BLOOD SPECIMENOrdering Facility: [facility] Address: [address] [place] [address] Performed By: #### I FES ####[facility] LABCLIA [id number] [place] [address] [place] IMMUNOGLOBULINS GAMon 2022 IgA [Mass/Vol] 188 mg/dL Normal 70-400 [facility] Comment on above: Order Comment: Speci men Type: BLOOD SPECIMENOrdering Facility: [facility] Address: [address] [place] [address] Performed By: #### S ERIMM ####[facility] LABCLIA [id number] [place] [address] [place] IgG [Mass/Vol] 591 mg/dL Low 700-1600 [facility] Comment on above: Order Comment: Speci men Type: BLOOD SPECIMENOrdering Facility: [facility] Address: [address] [place] [address] Performed By: #### S ERIMM ####[facility] LABCLIA [id number] [place] [address] [place] IgM [Mass/Vol] 513 mg/dL High 40-230 [facility] Comment on above: Order Comment: Speci men Type: BLOOD SPECIMENOrdering Facility: [facility] Address: [address] [place], [place] [id number] Performed By: #### S ERIMM ####[facility] LABCLIA [id number] [place] [address] [place] KAPPA/FARMER,FREE,SERon 2022 Immunoglobulin light chains.kappa.free (S) [Mass/Vol] 13.9 mg/L Normal 3.3-19.4 [facility] Comment on above: Order Comment: Speci men Type: BLOOD SPECIMENOrdering Facility: [facility] Address: [address] [place] [address] Result Comment: Rare ly, increased serum free light chains levels may not be detected or accurately quantified due to prozone phenomenon or in high viscosity samples using this immunoturbidimetric assay. Correlation with other laboratory results and clinical findings is recommended.The Tatums Free Light Chain was performed using the Binding Site Optilite immunoturbidimetric method. Result obtained with different assay methods or kits cannot be used interchangeably. Performed By: #### K LFRS ####[facility] LABCLIA [id number] [place] [address] [place] Immunoglobulin light chains.kappa/Immunog lobulin light chains.lambda (S) [Mass ratio] 1.51 Normal 0.26-1.65 [facility] Comment on above: Order Comment: Speci men Type: BLOOD SPECIMENOrdering Facility: [facility] Address: [address] [place] [address] Performed By: #### K LFRS ####[facility] LABCLIA [id number] [place] [address] [place] Immunoglobulin light chains.lambda.free [Mass/Vol] 9.2 mg/L Normal 5.7-26.3 [facility] Comment on above: Order Comment: Speci men Type: BLOOD SPECIMENOrdering Facility: [facility] Address: [address] [place] [address] Result Comment: Rare ly, increased serum free [...] used interchangeably. Performed By: #### K LFRS ####[facility] LABCLIA [id number] [place] [address] [place] LDH SerPl-cCncon 08-18-2022 LDH [Catalytic activity/Vol] 164 U/L Normal 135-214 [facility] Comment on above: Order Comment: Speci men Type: BLOOD SPECIMENOrdering Facility: [facility] Address: [address] [place] [address] Performed By: #### 2 532-0, 2777-1, 3084-1, 09901-4 ####[facility] LABCLIA [id number] [place] [address] PROTEIN ELECTROPHORESIS SERU M (P)on 08-18-2022 Albumin [Mass/Vol] 3.95 g/dL Normal 3.43-5.41 [facility] Comment on above: Order Comment: Speci men Type: BLOOD SPECIMENOrdering Facility: [facility] Address: [address] [place] [address] Performed By: #### L [id number] ####[facility] LABCLIA [id number] [place] [address] [place] Alpha 1 globulin Elph [Mass/Vol] 0.35 g/dL Normal 0.18-0.43 [facility] Comment on above: Order Comment: Speci men Type: BLOOD SPECIMENOrdering Facility: [facility] Address: [address] [place] [address] Performed By: #### L [id number] ####[facility] LABCLIA [id number] [place] [address] [place] Alpha 2 globulin Elph [Mass/Vol] 0.80 g/dL Normal 0.42-0.98 [facility] Comment on above: Order Comment: Speci men Type: BLOOD SPECIMENOrdering Facility: [facility] Address: [address] [place] [address] Performed By: #### L [id number] ####[facility] LABCLIA [id number] [place] [address] [place] Beta globulin Elph [Mass/Vol] 1.06 g/dL Normal 0.61-1.17 [facility] Comment on above: Order Comment: Speci men Type: BLOOD SPECIMENOrdering Facility: [facility] Address: [address] [place] [address] Performed By: #### L [id number] ####[facility] [id number] [address] [facility] Gamma globulin Elph [Mass/Vol] 0.74 g/dL Normal 0.53-1.51 [facility] Comment on above: Order Comment: Speci men Type: BLOOD SPECIMENOrdering Facility: [facility] Address: [address] [place] [address] Performed By: #### L [id number] ####[facility] [id number] [address] OF [place] M-PROTEIN LOCATION Normal [facility] Comment on above: Order Comment: Speci men Type: BLOOD SPECIMENOrdering Facility: [facility] Address: [address] [place] [address] Result Comment: Not Applicable. Performed By: #### L [id number] ####[facility] [id number] [place] [address] [place] Protein Fractions [Interp] No definitive M protein is identified on protein electrophoresis. Normal No definitive M protein is identified on protein electrophore sis. [facility] Comment on above: Order Comment: Speci men Type: BLOOD SPECIMENOrdering Facility: [facility] Address: [address] [place] [address] Performed By: #### L [id number] ####[facility] LABIA [id number] [place] [address] [place] Protein.monoclonal Elph [Mass/Vol] 0.00 g/dL Normal <=0.00 [facility] Comment on above: Order Comment: Speci men Type: BLOOD SPECIMENOrdering Facility: [facility] Address: [address] Performed By: #### L [id number] ####[facility] LABCLIA [id number] [place] [address] [place] SPE STAFF REVIEW Reviewed by Dr. Gregg Ortez MD [facility] Comment on above: Order Comment: Speci men Type: BLOOD SPECIMENOrdering Facility: [facility] Address: [address] Performed By: #### L [id number] ####[facility] LABCLIA [id number] [place] [address] [place] Phosphate SerPl-mCncon 08-18 Phosphate [Mass/Vol] 3.6 mg/dL Normal 2.7-4.8 [facility] Comment on above: Order Comment: Speci men Type: BLOOD SPECIMENOrdering Facility: [facility] Address: [address] [address] Performed By: #### 2 532-0, 2777-1, 3084-1, 82232-3 ####[facility] LABCLIA [id number] [place] [address] Prot SerPl-mCncon 08-18-2022 Protein [Mass/Vol] 6.9 g/dL Normal 6.3-8.0 [facility] Comment on above: Order Comment: Speci men Type: BLOOD SPECIMENOrdering Facility: [facility] Address: [address] Performed By: #### 1 952-1, 1987-5, 2885-2, 2132-9 ####[facility] LABCLIA [id number] [place] [address] [place] Urate SerPl-mCncon 3 Urate [Mass/Vol] 3.8 mg/dL Normal 2.5-6.6 [facility] Comment on above: Order Comment: Speci men Type: BLOOD SPECIMENOrdering Facility: [facility] Address: [place] [address] Performed By: #### 2 532-0, 2777-1, 3084-1, 18448-0 ####[facility] LABCLIA [id number] [place] [address] Vit B12 [facility] 023 Cobalamin (Vitamin B12) [Mass/Vol] 325 pg/mL Normal 232-1245 [facility] Comment on above: Order Comment: Semaj moo Type: BLOOD SPECIMENOrdering Facility: [facility] Address: [place] [address] Performed By: #### 1 952-1, 1987-5, 2885-2, 9 ####[facility] LABCLIA [id number] [address] [address] [place] CNPNon 07-28-2022 CNPN Normal [facility] CNPNon 07-24-2022 CNPN Normal [facility] MRI KNEE RT WO CONon 022 MRI [...] 5. Moderate-sized hemarthrosis. Electronically authenticated by: MADELAINE READER Date: 2022-04-01 08:24 Normal [facility] PNEUMOCOCCAL IGG ABS, 23 SER OTYPESon 03-21-2022 Pneumococcal Interpretation See Note [facility] [place] [facility] S. pneumoniae 1 IgG (S) [Mass/Vol] 0.27 ug/mL [facility] [place] [facility] S. pneumoniae 12 IgG (S) [Mass/Vol] 0.08 ug/mL [facility] [place] [facility] S. pneumoniae 14 IgG (S) [Mass/Vol] 0.19 ug/mL [facility] [place] [facility] S. pneumoniae 17 IgG (S) [Mass/Vol] 1.72 ug/mL [facility] [place] [facility] S. pneumoniae 19 IgG (S) [Mass/Vol] 1.52 ug/mL [facility] [place] [facility] S. pneumoniae 2 IgG (S) [Mass/Vol] 0.44 ug/mL [facility] [place] [facility] S. pneumoniae 20 IgG (S) [Mass/Vol] 1.53 ug/mL [facility] [place] [facility] S. pneumoniae 22 IgG (S) [Mass/Vol] 0.99 ug/mL [facility] [place] [facility] S. pneumoniae 23 IgG (S) [Mass/Vol] 0.14 ug/mL [facility] [place] [facility] S. pneumoniae 3 IgG (S) [Mass/Vol] 0.36 ug/mL [facility] [place] [facility] S. pneumoniae 34 IgG (S) [Mass/Vol] 5.77 ug/mL [facility] [place] [facility] S. pneumoniae 4 IgG (S) [Mass/Vol] 0.06 ug/mL [facility] [place] [facility] S. pneumoniae 43 IgG (S) [Mass/Vol] 0.93 ug/mL [facility] [place] [facility] S. pneumoniae 5 IgG (S) [Mass/Vol] 0.89 ug/mL [facility] [place] [facility] S. pneumoniae 8 IgG (S) [Mass/Vol] 0.58 ug/mL [facility] [place] [facility] S. pneumoniae 9 IgG (S) [Mass/Vol] 0.4 ug/mL [facility] [place] [facility] S. pneumoniae [place] type 15B IgG (S) [Mass/Vol] 8.27 ug/mL [facility] [place] [facility] S. pneumoniae [place] type 18C IgG (S) [Mass/Vol] 0.39 ug/mL [facility] [place] [facility] S. pneumoniae [place] type 19A IgG (S) [Mass/Vol] 17.72 ug/mL [facility] [place] [facility] S. pneumoniae [place] type 33F IgG (S) [Mass/Vol] 3.04 ug/mL [facility] [place] [facility] S. pneumoniae [place] type 6B IgG (S) [Mass/Vol] 0.82 ug/mL [facility] [place] [facility] S. pneumoniae [place] type 7F IgG (S) [Mass/Vol] 0.34 ug/mL [facility] [place] [facility] S. pneumoniae [place] type 9V IgG (S) [Mass/Vol] 0.78 ug/mL [facility] [place] [facility] XR KNEE RT 4V or [...] by: KRISTINA GARRETT Date: 2022-03-21 16:47 Normal [facility] DIPHTHER/TETANUS ABon 2021 C. diphtheriae IgG Qn (S) 0.1 IU/mL [facility] [place] [facility] C. tetani toxoid IgG IA Qn 1 IU/mL [facility] [place] [facility] IGA BLDon 03-18-2022 IgA [Mass/Vol] 182 mg/dL 70 - 400 mg/dL [facility] [place] [facility] IGE BLDon 03-18-2022 IgE Qn 12.3 kU/l <114.0 kU/l [facility] [place] [facility] IGGon 03-18-2022 IgG [Mass/Vol] 618 mg/dL Low 700 - 1,600 mg/dL [facility] [place] [facility] IGMon 03-18-2022 IgM [Mass/Vol] 514 mg/dL High 40 - 230 mg/dL [facility] [place] [facility] Immunodeficiency panel FC (B ld)on 03-18-2022 CD3 cells (Bld) [#/Vol] 2841 cells/uL High 958 - 2,388 cells/uL [facility] [place] [facility] CD3 cells/100 cells (Bld) 81 % 60 - 89 % [facility] [place] [facility] CD3+CD4+ (T4 helper) cells (Bld) [#/Vol] 1621 cells/uL 533 - 1,674 cells/uL [facility] [place] [facility] CD3+CD4+ (T4 helper) cells/100 cells (Bld) 46 % 34 - 61 % [facility] [place] [facility] CD3+CD4+ (T4 helper) cells/CD3+CD8+ (T8 suppressor cells) cells (Bld) [# ratio] 1.55 % 1.10 - 3.25 [facility] [place] [facility] CD3+CD8+ (T8 suppressor cells) cells (Bld) [#/Vol] 1049 cells/uL High 175 - 958 cells/uL [facility] [place] [facility] CD3+CD8+ (T8 suppressor cells) cells/100 cells (Bld) 30 % 10 - 41 % [facility] [place] [facility] CD3-CD16+CD56+ (Natural killer) cells (Bld) [#/Vol] 193 cells/uL 102 - 565 cells/uL [facility] [place] [facility] CD3-CD16+CD56+ (Natural killer) cells/100 cells (Bld) 5 % 5 - 25 % [facility] [place] [facility] CD3-CD19+ cells (Bld) [#/Vol] 475 cells/uL 75 - 660 cells/uL [facility] [place] [facility] CD3-CD19+ cells/100 cells (Bld) 13 % 5 - 22 % [facility] [place] [facility] CBC W Auto Differential pane l (Bld)on 03-17-2022 Basophils (Bld) [#/Vol] 0.07 10*3/uL <0.11 k/uL [facility] [place] [facility] Basophils/100 WBC (Bld) 0.6 % [facility] [place] [facility] Differential cell count method Nom (Bld) Auto [facility] Eosinophils (Bld) [#/Vol] 0.18 10*3/uL <0.46 k/uL [facility] [place] [facility] Eosinophils/100 WBC (Bld) 1.6 % [facility] [place] [facility] Erythrocyte distribution width (RBC) [Ratio] 14.6 % 11.5 - 15.0 % [facility] [place] [facility] Hematocrit (Bld) [Volume fraction] 40.5 % 36.0 - 46.0 % [facility] [place] [facility] Hemoglobin (Bld) [Mass/Vol] 13.0 g/dL 11.5 - 15.5 g/dL [facility] [place] [facility] Immature granulocytes (Bld) [#/Vol] 0.06 10*3/uL <0.10 k/uL [facility] [place] [facility] Immature granulocytes/100 WBC (Bld) 0.5 % [facility] Lymphocytes (Bld) [#/Vol] 2.97 10*3/uL 1.00 - 4.00 k/uL [facility] [place] [facility] Lymphocytes/100 WBC (Bld) 26.9 % [facility] [place] [facility] MCH (RBC) [Entitic mass] 28.4 pg 26.0 - 34.0 pg [facility] [place] [facility] MCHC (RBC) [Mass/Vol] 32.1 g/dL 30.5 - 36.0 g/dL [facility] [place] [facility] MCV (RBC) [Entitic vol] 88.4 fL 80.0 - 100.0 fL [facility] [place] [facility] Monocytes (Bld) [#/Vol] 0.79 10*3/uL <0.87 k/uL [facility] [place] [facility] Monocytes/100 WBC (Bld) 7.2 % [facility] [place] [facility] Neutrophils (Bld) [#/Vol] 6.97 10*3/uL 1.45 - 7.50 k/uL [facility] [place] [facility] Neutrophils/100 WBC (Bld) 63.2 % [facility] [place] [facility] Nucleated RBC (Bld) [#/Vol] <0.01 k/uL [facility] [place] [facility] Nucleated RBC/100 WBC (Bld) [Ratio] 0.0 /100 WBC [facility] [place] [facility] Platelet mean volume (Bld) [Entitic vol] 9.9 fL 9.0 - 12.7 fL [facility] [place] [facility] Platelets (Bld) [#/Vol] 314 10*3/uL 150 - 400 k/uL [facility] [place] [facility] RBC (Bld) [#/Vol] 4.58 10*6/uL 3.90 - 5.2 0 m/uL [facility] [place] [facility] WBC (Bld) [#/Vol] 11.04 10*3/uL High 3.70 - 11 .00 k/uL [facility] [place] [facility] ECHOCARDIO M/2D COMPLETEon 1 ECHOCARDIO M/2D COMPLETE Patient: JONES HALEY Exam Date: 03/12/2022 : 1980 Gender:F Ordering : DR MADELAINE FERRIS . Admission #: [id number] Family : Order #: [id number] CLICK HERE TO VIEW EXAM ECHOCARDIOGRAM REPORT [...] M.D. on 03/16/2022 at 16:47 Normal [facility] INSULINon 03-11-2022 Insulin 17.8 uIU/mL Normal 2.6-24.9 [facility] Comment on above: Performed By: #### C BC #### [facility] [address] [address] [address] Manda York CBC AUTO DIFFon 03-09-2022 BASO # 0.1 103/ul Normal 0.0-0.1 [facility] Comment on above: Performed By: #### C BC #### [facility] [address] [address] [address] Manda York Basophils/100 WBC (Bld) 0.4 % Normal 0.2-2.0 [facility] Comment on above: Performed By: #### C BC #### [facility] [address] [place] [address] Dr. Manda York EO # 0.2 103/ul Normal 0.0-0.7 [facility] Comment on above: Performed By: #### C BC #### [facility] [address] [place] [address] Dr. Manda York Eosinophils/100 WBC (Bld) 1.2 % Normal 0.9-7.0 [facility] Comment on above: Performed By: #### C BC #### [facility] [address] [place] [address] Dr. Manda York Erythrocyte distribution width (RBC) [Ratio] 14.6 % Normal 11.0-15.0 [facility] Comment on above: Performed By: #### C BC #### [facility] [address] [place] [address] Dr. Manda York Hematocrit (Bld) [Volume fraction] 39.2 % Normal 36.0-48.0 [facility] Comment on above: Performed By: #### C BC #### [facility] [address] [place] [address] Dr. Manda York Hemoglobin (Bld) [Mass/Vol] 12.7 g/dL Normal 12.0-16.0 [facility] Comment on above: Performed By: #### C BC #### [facility] [address] [place] [address] Dr. Manda York IG # 0.06 10e3/ul Critically high 0.00-0.03 [facility] Comment on above: Performed By: #### C BC #### [facility] [address] [place] [address] Dr. Manda York IG % 0.5 % Normal 0.0-0.5 [facility] Comment on above: Performed By: #### C BC #### [facility] [address] [place] [address] Dr. Manda York LYMPH # 3.7 103/ul Normal 1.2-3.8 [facility] Comment on above: Performed By: #### C BC #### [facility] [address] [place] [address] Dr. Manda York Lymphocytes/100 WBC (Bld) 31.0 % Normal 20.5-60.0 [facility] Comment on above: Performed By: #### C BC #### [facility] [address] [place] [address] Dr. Manda York MANUAL DIFF REQ NO Normal [facility] Comment on above: Performed By: #### C BC #### [facility] [address] [place] [address] Dr. Manda York MCH (RBC) [Entitic mass] 28.9 pg Normal 26.7-34.0 [facility] Comment on above: Performed By: #### C BC #### [facility] [address] [place] [address] Dr. Manda York MCHC (RBC) [Mass/Vol] 32.4 g/dL Normal 29.9-35.2 [facility] Comment on above: Performed By: #### C BC #### [facility] [address] [place] [address] Dr. Manda York MCV (RBC) [Entitic vol] 89.1 fL Normal 81.0-99.0 [facility] Comment on above: Performed By: #### C BC #### [facility] [address] [place] [address] Dr. Manda York MONO # 0.7 103/ul Normal 0.3-0.8 [facility] Comment on above: Performed By: #### C BC #### [facility] [address] [place] [address] Dr. Manda York Monocytes/100 WBC (Bld) 5.8 % Normal 1.7-12.0 [facility] Comment on above: Performed By: #### C BC #### [facility] [address] [place] [address] Dr. Manda York NEUT # 7.3 103/ul Critically high 1.4-6.5 [facility] Comment on above: Performed By: #### C BC #### [facility] [address] [place] [address] Dr. Manda York Neutrophils/100 WBC (Bld) 61.1 % Normal 43.0-75.0 [facility] Comment on above: Performed By: #### C BC #### [facility] [address] [place] [address] Dr. Manda York Platelet mean volume (Bld) [Entitic vol] 9.7 fL Normal 9.5-13.5 [facility] Comment on above: Performed By: #### C BC #### [facility] [address] [place] [address] Dr. Manda York PLT 297 103/ul Normal 150-450 [facility] Comment on above: Performed By: #### C BC #### [facility] [address] [place] [address] Dr. Manda Yrok RBC 4.40 106/ul Normal 4.20-5.40 [facility] Comment on above: Performed By: #### C BC #### [facility] [address] [place] [address] Dr. Manda York WBC 12.0 103/ul Critically high 4.0-11.0 [facility] Comment on above: Performed By: #### C BC #### [facility] [address] [place] [address] Dr. Manda York FREE THYROXINE INDEX T7on FTI 3.81 Normal 1.30-4.50 [facility] Comment on above: Performed By: #### U AMIC #### [facility] [address] [address] [address] Manda York T3U 34.0 % Normal 30.0-39.0 [facility] Comment on above: Performed By: #### U AMIC #### [facility] [address] [address] [address] Manda York T4 [Mass/Vol] 11.20 ug/dL Normal 4.80-13.90 [facility] Comment on above: Performed By: #### U AMIC #### [facility] [address] [address] [address] Manda York GLYCOHEMOGLOBIN A1Con 2021 ADA RECOMMENDATION SEE BELOW Normal [facility] Comment on above: Result Comment: ADA RECOMMENDED LIMIT 4.0 - 6.0 ADA THERAPEUTIC TARGET < 7.0 ACTION SUGGESTED > 7.0 Performed By: #### S LEANN MELOC #### [facility] [address] [place] [address] Dr. Manda York Glucose [Mass/Vol] 117 mg/dL Normal [facility] Comment on above: Performed By: #### S LEANN MELOC #### [facility] [address] [address] [address] Manda York HbA1c (Bld) [Mass fraction] 5.7 % Normal 4.5-6.2 [facility] Comment on above: Performed By: #### S LORIE THYLC #### [facility] [address] [place] [address] Dr. Manda York IRONon 03-09-2022 Iron [Mass/Vol] 61.0 ug/dL Normal 50.0-170.0 [facility] Comment on above: Performed By: #### C BC #### [facility] [address] [place] [address] Dr. Manda York LIPID PROFILEon 03-09-2022 CHOL-HDL RATIO NORM SEE BELOW Normal [facility] Comment on above: Result Comment: 3.3 - 4.4 LOW RISK 4.4 - 7.1 AVERAGE RISK 7.1 - 11.0 MODERATE RISK >11.0 HIGH RISK Performed By: #### U AMIC #### [facility] [address] [place], [place] [address] Dr. Manda York Cholesterol [Mass/Vol] 260 mg/dL Critically high <=200 [facility] Comment on above: Performed By: #### U AMIC #### [facility] [address] [place], [place] [address] Dr. Manda York Cholesterol in HDL [Mass/Vol] 38 mg/dL Critically low 40-60 [facility] Comment on above: Performed By: #### U AMIC #### [facility] [address] [address] [address] Manda York Cholesterol in LDL [Mass/Vol] 170.8 mg/dL Normal [facility] Comment on above: Performed By: #### U AMIC #### [facility] [address] [address] [address] Manda York Cholesterol.total/Ch olesterol in HDL [Mass ratio] 6.8 {ratio} Normal [facility] Comment on above: Performed By: #### U AMIC #### [facility] [address] [address] [address] Manda York HDL NORMAL > or = 60 mg/dl - LO W CARDIOVASCULAR RISK <40 mg/dl - HIGH CARDIOVASCULAR RISK Normal [facility] Comment on above: Performed By: #### U AMIC #### [facility] [address] [address] [address] Manda York LDL CALC NORMAL SEE BELOW Normal [facility] Comment on above: Result Comment: <100 mg/dl OPTIMAL 100 - 129 mg/dl NEAR OR ABOVE OPTIMAL 130 - 159 mg/dl BORDERLINE HIGH 160 - 189 mg/dl HIGH >190 mg/dl VERY HIGH Performed By: #### U AMIC #### [facility] [address] [address] [address] Manda York Triglyceride [Mass/Vol] 256 mg/dL Critically high <=150 [facility] Comment on above: Performed By: #### U AMIC #### [facility] [address] [address] [address] Manda York VLDL CALC 51.2 mg/dL Normal [facility] Comment on above: Performed By: #### U AMIC #### [facility] [address] [address] [address] Manda York PROF 14(COMP METB)on 03-09- 022 Albumin [Mass/Vol] 3.8 g/dL Normal 3.4-5.0 [facility] Comment on above: Performed By: #### U AMIC #### [facility] [address] [address] [address] Manda York Albumin/Globulin [Mass ratio] 1.0 {ratio} Normal [facility] Comment on above: Performed By: #### U AMIC #### [facility] [address] [place] [address] Dr. Manda York ALP [Catalytic activity/Vol] 66 U/L Normal 46-116 [facility] Comment on above: Performed By: #### U AMIC #### [facility] [address] [place] [address] Dr. Manda York ALT [Catalytic activity/Vol] 27 U/L Normal 14-59 [facility] Comment on above: Performed By: #### U AMIC #### [facility] [address] [place] [address] Dr. Manda York Anion gap [Moles/Vol] 11.8 mmol/L Normal [facility] Comment on above: Performed By: #### U AMIC #### [facility] [address] [address] [address] Manda York AST [Catalytic activity/Vol] 9 U/L Critically low 15-37 [facility] Comment on above: Performed By: #### U AMIC #### [facility] [facility] [address] [address] [address] Manda York Bilirubin [Mass/Vol] 0.2 mg/dL Normal 0.2-1.0 [facility] Comment on above: Performed By: #### U AMIC #### [facility] [address] [place] [address] Dr. Manda York Calcium [Mass/Vol] 9.1 mg/dL Normal 8.5-10.1 [facility] Comment on above: Performed By: #### U AMIC #### [facility] [address] [address] [address] Manda York Chloride [Moles/Vol] 101 mmol/L Normal 98-107 [facility] Comment on above: Performed By: #### U AMIC #### [facility] [address] [address] [address] Manda York CO2 [Moles/Vol] 26.1 mmol/L Normal 21.0-32.0 [facility] Comment on above: Performed By: #### U AMIC #### [facility] [address] [address] [address] Manda York Creatinine [Mass/Vol] 0.80 mg/dL Normal 0.55-1.02 [facility] Comment on above: Performed By: #### U AMIC #### [facility] [address] [place] [address] Dr. Manda York EGFR-AF CHILEAN >60 Normal >=60 [facility] Comment on above: Performed By: #### U AMIC #### [facility] [address] [address] [address] Manda York EGFR-NON AF CHILEAN >60 Normal >=60 [facility] Comment on above: Performed By: #### U AMIC #### [facility] [address] [place] [address] Dr. Manda York Globulin (S) [Mass/Vol] 3.8 g/dL Normal [facility] Comment on above: Performed By: #### U AMIC #### [facility] [address] [address] [address] Manda York Glucose [Mass/Vol] 93 mg/dL Normal 74-106 [facility] Comment on above: Performed By: #### U AMIC #### [facility] [address] [address] [address] Manda York Potassium [Moles/Vol] 3.9 mmol/L Normal 3.5-5.1 [facility] Comment on above: Performed By: #### U AMIC #### [facility] [address] [address] [address] Manda York Protein [Mass/Vol] 7.6 g/dL Normal 6.4-8.2 [facility] Comment on above: Performed By: #### U AMIC #### [facility] [address] [address] [address] Manda York Sodium [Moles/Vol] 135 mmol/L Critically low 136-145 [facility] Comment on above: Performed By: #### U AMIC #### [facility] [address] [address] [address] Manda York Urea nitrogen [Mass/Vol] 10.0 mg/dL Normal 7.0-18.0 [facility] Comment on above: Performed By: #### U AMIC #### [facility] [address] [address] [address] Manda York Urea nitrogen/Creatinine [Mass ratio] 12.5 mg/mg Normal [facility] Comment on above: Performed By: #### U AMIC #### [facility] [address] [address] [address] Manda York TSHon 03-09-2022 TSH 0.610 uIU/mL Normal 0.358-3.740 [facility] Comment on above: Performed By: #### U AMIC #### [facility] [address] [address] [address] Manda York B2 MICROGLOBULIN [facility] 022 Xfex-4-Fzbxprxtcixku [Mass/Vol] 1.8 ug/mL 0.8 - 2.4 mg/L [facility] FERRITIN BLDon 03-05-2022 Ferritin [Mass/Vol] 33.2 ng/mL 14.7 - 2 05.1 ng/mL [facility] FOLATE SERUMon 03-05-2022 Folate [Mass/Vol] 6.6 ng/mL >4.7 ng/mL [facility] Iron and Iron binding capaci ty panelon 03-05-2022 Iron [Mass/Vol] 49 ug/dL 41 - 186 ug/dL [facility] Iron binding capacity [Mass/Vol] 392 ug/dL High 232 - 386 ug/dL [facility] Iron/TIBC [Molar ratio] 12.5 % Low 15.0 - 57.0 % [facility] CBC W Auto Differential pane l (Bld)on 03-04-2022 Basophils (Bld) [#/Vol] 0.07 10*3/uL <0.11 k/uL [facility] Basophils/100 WBC (Bld) 0.6 % [facility] Differential cell count method Nom (Bld) Auto [facility] Eosinophils (Bld) [#/Vol] 0.19 10*3/uL <0.46 k/uL [facility] Eosinophils/100 WBC (Bld) 1.7 % [facility] Erythrocyte distribution width (RBC) [Ratio] 14.7 % 11.5 - 15.0 % [facility] Hematocrit (Bld) [Volume fraction] 40.0 % 36.0 - 46.0 % [facility] Hemoglobin (Bld) [Mass/Vol] 13.0 g/dL 11.5 - 15.5 g/dL [facility] Immature granulocytes (Bld) [#/Vol] 0.07 10*3/uL <0.10 k/uL [facility] Immature granulocytes/100 WBC (Bld) 0.6 % [facility] Lymphocytes (Bld) [#/Vol] 3.31 10*3/uL 1.00 - 4.00 k/uL [facility] Lymphocytes/100 WBC (Bld) 30.2 % [facility] MCH (RBC) [Entitic mass] 28.9 pg 26.0 - 34.0 pg [facility] MCHC (RBC) [Mass/Vol] 32.5 g/dL 30.5 - 36.0 g/dL [facility] MCV (RBC) [Entitic vol] 88.9 fL 80.0 - 100.0 fL [facility] Monocytes (Bld) [#/Vol] 0.70 10*3/uL <0.87 k/uL [facility] Monocytes/100 WBC (Bld) 6.4 % [facility] Neutrophils (Bld) [#/Vol] 6.63 10*3/uL 1.45 - 7.50 k/uL [facility] Neutrophils/100 WBC (Bld) 60.5 % [facility] Nucleated RBC (Bld) [#/Vol] <0.01 k/uL [facility] Nucleated RBC/100 WBC (Bld) [Ratio] 0.0 /100 WBC [facility] Platelet mean volume (Bld) [Entitic vol] 9.6 fL 9.0 - 12.7 fL [facility] Platelets (Bld) [#/Vol] 355 10*3/uL 150 - 400 k/uL [facility] RBC (Bld) [#/Vol] 4.50 10*6/uL 3.90 - 5.2 0 m/uL [facility] WBC (Bld) [#/Vol] 10.97 10*3/uL 3.70 - 11 .00 k/uL [facility] Calcium.ionized [Moles/Vol]o n 03-04-2022 Calcium.ionized (Bld) [Mass/Vol] 1.26 mmol/L 1.08 - 1.30 mmol/L [facility] Calcium.ionized adjusted to pH 7.4 (Bld) [Moles/Vol] 1.25 mmol/L 1.08 - 1.30 mmol/L [facility] Comprehensive metabolic 2000 panelon 03-04-2022 Albumin [Mass/Vol] 4.3 g/dL 3.9 - 4.9 g/dL [facility] ALP [Catalytic activity/Vol] 70 U/L 34 - 123 U/L [facility] ALT [Catalytic activity/Vol] 26 U/L 7 - 38 U/L [facility] Anion gap [Moles/Vol] 7 mmol/L Low 9 - 18 mmol/L [facility] AST [Catalytic activity/Vol] 12 U/L Low 13 - 35 U/L [facility] Bilirubin [Mass/Vol] 0.2 mg/dL 0.2 - 1 .3 mg/dL [facility] Calcium [Mass/Vol] 9.3 mg/dL 8.5 - 10. 2 mg/dL [facility] Chloride [Moles/Vol] 103 mmol/L 97 - 10 5 mmol/L [facility] CO2 [Moles/Vol] 28 mmol/L 22 - 30 mmol/L [facility] Creatinine [Mass/Vol] 0.69 mg/dL 0.58 - 0.96 mg/dL [facility] Estimated Glomerular Filtration Rate 112 mL/min/1.73m >=60 mL/min/1.73m [facility] Glucose [Mass/Vol] 100 mg/dL High 74 - 99 mg/dL [facility] Potassium [Moles/Vol] 3.9 mmol/L 3.7 - 5.1 mmol/L [facility] Protein [Mass/Vol] 7.0 g/dL 6.3 - 8.0 g/dL [facility] Sodium [Moles/Vol] 138 mmol/L 136 - 144 mmol/L [facility] Urea nitrogen [Mass/Vol] 12 mg/dL 7 - 21 mg/dL [facility] LD LACTATE DEHYDROon 022 LDH [Catalytic activity/Vol] 135 U/L 135 - 214 U/L [facility] PHOSPHORUS INORGANICon 03-04 Phosphate [Mass/Vol] 3.2 mg/dL 2.7 - 4 .8 mg/dL [facility] URIC ACID BLOODon 03-04-2022 Urate [Mass/Vol] 5.2 mg/dL 2.5 - 6.6 mg/dL [facility] IMMUNOGLOBULINS IGA/IGM/IGG/ IGE QUANTITAon 02-20-2022 Immunoglobulin A, Qn, Serum 189 mg/dL Normal 87-352 [facility] Comment on above: Result Comment: Perf ormed at: CB Performed By: #### S LORIE THYLC #### [facility] [address] [address] [address] Manda York Immunoglobulin E, Total 10 IU/mL Normal 6-495 [facility] Comment on above: Result Comment: Perf ormed at: BN Performed By: #### S LORIE THYLC #### [facility] [address] [address] [address] Manda York Immunoglobulin G, Qn, Serum 598 mg/dL Normal 586-1602 [facility] Comment on above: Result Comment: Perf ormed at: CB Performed By: #### S LORIE, THYLC #### [facility] [address] [address] [address] Manda York Immunoglobulin M, Qn, Serum 493 mg/dL Critically high 26-217 [facility] Comment on above: Result Comment: Perf ormed at: CB Performed By: #### S LORIE THYLC #### [facility] [address] [address] [address] Manda York CHRISTIAN by IFAon 02-19-2022 Antinuclear Antibodies, IFA Negative Normal [facility] Comment on above: Result Comment: Nega tive <1:80 Borderline 1:80 Positive >1:80 ICAP nomenclature: AC-0 For more information about Hep-2 cell patterns use ANApatterns.org, the official website for the International Consensus on Antinuclear Antibody (CHRISTIAN) Patterns (ICAP). Performed By: #### S LUIGI MELO #### [facility] [address] [place] [address] Dr. Manda York THYROID ANTIBODIESon 022 Thyroglobulin Antibody <1.0 Normal 0.0-0.9 [facility] Comment on above: Result Comment: Thyr oglobulin Antibody measured by [employer] Methodology Performed By: #### F T4 #### [facility] [address] [place] [address] Dr. Manda York Thyroid Peroxidase (TPO) Ab <8 Normal 0-34 [facility] Comment on above: Performed By: #### F T4 #### [facility] [address] [place] [address] Dr. Manda York PROTEIN ELECTROPHERESISon Albumin [Mass/Vol] 3.2 g/dL Normal 2.9-4.4 [facility] Comment on above: Performed By: #### F T4 #### [facility] [address] [place] [address] Dr. Manda York Albumin/Globulin [Mass ratio] 1.0 {ratio} Normal 0.7-1.7 [facility] Comment on above: Performed By: #### F T4 #### [facility] [address] [place] [address] Dr. Manda York Jtbsm-9-Chpyxbrx 0.2 g/dL Normal 0.0-0.4 [facility] Comment on above: Performed By: #### F T4 #### [facility] [address] [place] [address] Dr. Manda York Moqyz-2-Daqfvgbb 0.9 g/dL Normal 0.4-1.0 [facility] Comment on above: Performed By: #### F T4 #### [facility] [address] [place] [address] Dr. Manda York Beta Globulin 1.2 g/dL Normal 0.7-1.3 [facility] Comment on above: Performed By: #### F T4 #### [facility] [address] [place] [address] Dr. Manda York Gamma Globulin 0.9 g/dL Normal 0.4-1.8 [facility] Comment on above: Performed By: #### F T4 #### [facility] [address] [place] [address] Dr. Manda York Globulin (S) [Mass/Vol] 3.2 g/dL Normal 2.2-3.9 [facility] Comment on above: Performed By: #### F T4 #### [facility] [address] [place] [address] Dr. Manda York M-Jose De Jesus Not Observed Normal Not Observed [facility] Comment on above: Performed By: #### F T4 #### [facility] [address] [place] [address] Dr. Manda York PDF . Normal [facility] Comment on above: Performed By: #### F T4 #### [facility] [address] [place] [address] Dr. Manda York Please note: Comment Normal [facility] Comment on above: Result Comment: Prot ein electrophoresis scan will follow via computer, mail, or blanket cutting machine operator delivery. Performed By: #### F T4 #### [facility] [address] [place] [address] Dr. Manda York Protein [Mass/Vol] 6.4 g/dL Normal 6.0-8.5 [facility] Comment on above: Performed By: #### F T4 #### [facility] [address] [place] [address] Dr. Manda York SLE PROFILE Aon 02-16-2022 Anti-DNA (DS) Ab Qn 9 IU/mL Normal 0-9 [facility] Comment on above: Result Comment: Nega tive <5 Equivocal 5 - 9 Positive >9 Performed By: #### S LUIGI MELO #### [facility] [address] [place] [address] Dr. Manda York Antichromatin Antibodies <0.2 Normal 0.0-0.9 [facility] Comment on above: Performed By: #### LEANN PATRICKC #### [facility] [address] [place] [address] Dr. Manda York RA Latex Turbid. <10.0 Normal <14.0 [facility] Comment on above: Performed By: #### Tye MELO THYLC #### [facility] [address] [place] [address] Dr. Manda York BICYCLE REPAIR TECHNICIAN Antibodies <0.2 Normal 0.0-0.9 [facility] Comment on above: Performed By: #### LEANN PATRICKC #### [facility] [address] [place] [address] Dr. Manda York Sjogren'tye Anti-SS-A <0.2 Normal 0.0-0.9 [facility] Comment on above: Performed By: #### LUIGI PATRICK #### [facility] [address] [place] [address] Dr. Manda York Sjogryaniv'tye Anti-SS-B <0.2 Normal 0.0-0.9 [facility] Comment on above: Performed By: #### LEANN PATRICKC #### [facility] [address] [place] [address] Dr. Manda York Schneider Antibodies <0.2 Normal 0.0-0.9 [facility] Comment on above: Performed By: #### LEANN PATRICKC #### [facility] [address] [place] [address] Dr. Manda York ANTISTREPTOLYSIN O AB (ASO)o n 02-15-2022 Antistreptolysin O Ab 49.6 IU/mL Normal 0.0-200.0 [facility] Comment on above: Performed By: #### A SOAB #### [facility] [address] [place] [address] Dr. Manda York MICROALBUMIN URINEon 022 Albumin, Urine <3.0 Normal Not Estab. [facility] Comment on above: Result Comment: Ve rified by repeat analysis Performed By: #### C BC #### [facility] [address] [place] [address] Dr. Manda York T4, T3U, FTI LABCORPon 02-15 Free Thyroxine Index 2.6 Normal 1.2-4.9 [facility] Comment on above: Performed By: #### S LUIGI MELO #### [facility] [address] [place] [address] Dr. Manda York T3 Uptake 26 % Normal 24-39 [facility] Comment on above: Performed By: #### S LUIGI MELO #### [facility] [address] [place] [address] Dr. Manda York T4 [Mass/Vol] 9.9 ug/dL Normal 4.5-12.0 [facility] Comment on above: Performed By: #### LUIGI PATRICK #### [facility] [address] [place] [address] Dr. Manda York CBC AUTO DIFFon 02-14-2022 BASO # 0.1 103/ul Normal 0.0-0.1 [facility] Comment on above: Performed By: #### U AMIC #### [facility] [address] [place] [address] Dr. Manda York Basophils/100 WBC (Bld) 0.6 % Normal 0.2-2.0 [facility] Comment on above: Performed By: #### U AMIC #### [facility] [address] [place] [address] Dr. Manda York EO # 0.3 103/ul Normal 0.0-0.7 [facility] Comment on above: Performed By: #### U AMIC #### [facility] [address] [place] [address] Dr. Manda York Eosinophils/100 WBC (Bld) 3.4 % Normal 0.9-7.0 [facility] Comment on above: Performed By: #### U AMIC #### [facility] [address] [address] [address] Manda York Erythrocyte distribution width (RBC) [Ratio] 14.6 % Normal 11.0-15.0 [facility] Comment on above: Performed By: #### U AMIC #### [facility] [address] [place] [address] Dr. Manda York Hematocrit (Bld) [Volume fraction] 39.1 % Normal 36.0-48.0 [facility] Comment on above: Performed By: #### U AMIC #### [facility] [address] [place] [address] Dr. Manda York Hemoglobin (Bld) [Mass/Vol] 12.4 g/dL Normal 12.0-16.0 [facility] Comment on above: Performed By: #### U AMIC #### [facility] [address] [place] [address] Dr. Manda York IG # 0.03 10e3/ul Normal 0.00-0.03 [facility] Comment on above: Performed By: #### U AMIC #### [facility] [address] [place] [address] Dr. Manda York IG % 0.3 % Normal 0.0-0.5 [facility] Comment on above: Performed By: #### U AMIC #### [facility] [address] [place] [address] Dr. Manda York LYMPH # 3.6 103/ul Normal 1.2-3.8 [facility] Comment on above: Performed By: #### U AMIC #### [facility] [address] [place] [address] Dr. Manda York Lymphocytes/100 WBC (Bld) 39.9 % Normal 20.5-60.0 [facility] Comment on above: Performed By: #### U AMIC #### [facility] [address] [place] [address] Dr. Manda York MANUAL DIFF REQ NO Normal [facility] Comment on above: Performed By: #### U AMIC #### [facility] [address] [address] [address] Manda York MCH (RBC) [Entitic mass] 28.4 pg Normal 26.7-34.0 [facility] Comment on above: Performed By: #### U AMIC #### [facility] [address] [place] [address] Dr. Manda York MCHC (RBC) [Mass/Vol] 31.7 g/dL Normal 29.9-35.2 [facility] Comment on above: Performed By: #### U AMIC #### [facility] [address] [place] [address] Dr. Manda York MCV (RBC) [Entitic vol] 89.7 fL Normal 81.0-99.0 [facility] Comment on above: Performed By: #### U AMIC #### [facility] [address] [place] [address] Dr. Manda York MONO # 0.7 103/ul Normal 0.3-0.8 [facility] Comment on above: Performed By: #### U AMIC #### [facility] [address] [place] [address] Dr. Manda York Monocytes/100 WBC (Bld) 7.3 % Normal 1.7-12.0 [facility] Comment on above: Performed By: #### U AMIC #### [facility] [address] [place] [address] Dr. Manda York NEUT # 4.4 103/ul Normal 1.4-6.5 [facility] Comment on above: Performed By: #### U AMIC #### [facility] [address] [place] [address] Dr. Manda York Neutrophils/100 WBC (Bld) 48.5 % Normal 43.0-75.0 [facility] Comment on above: Performed By: #### U AMIC #### [facility] [address] [place] [address] Dr. Manda York Platelet mean volume (Bld) [Entitic vol] 10.1 fL Normal 9.5-13.5 [facility] Comment on above: Performed By: #### U AMIC #### [facility] [address] [address] [address] Manda York PLT 310 103/ul Normal 150-450 [facility] Comment on above: Performed By: #### U AMIC #### [facility] [address] [address] [address] Manda York RBC 4.36 106/ul Normal 4.20-5.40 [facility] Comment on above: Performed By: #### U AMIC #### [facility] [address] [address] [address] Manda York WBC 9.0 103/ul Normal 4.0-11.0 [facility] Comment on above: Performed By: #### U AMIC #### [facility] [address] [place] [address] Dr. Manda York CRPon 02-14-2022 CRP [Mass/Vol] mg/L Normal <=1.0 [facility] Comment on above: Performed By: #### U AMIC #### [facility] [address] [place] [address] Dr. Manda York CULTURE URINEon 02-14-2022 CULTURE URINE Culture Observations : LIGHT GROWTH OF MIXED GENITAL AMBER. NO POTENTIAL PATHOGENS SEEN. Normal [facility] Comment on above: Performed By: #### C BC #### [facility] [address] [place] [address] Dr. Manda York PROF 14(COMP METB)on 022 Albumin [Mass/Vol] 3.5 g/dL Normal 3.4-5.0 [facility] Comment on above: Performed By: #### U AMIC #### [facility] [address] [place] [address] Dr. Manda York Albumin/Globulin [Mass ratio] 1.0 {ratio} Normal [facility] Comment on above: Performed By: #### U AMIC #### [facility] [address] [place] [address] Dr. Manda York ALP [Catalytic activity/Vol] 71 U/L Normal 46-116 [facility] Comment on above: Performed By: #### U AMIC #### [facility] [address] [address] [address] Manda York ALT [Catalytic activity/Vol] 46 U/L Normal 14-59 [facility] Comment on above: Performed By: #### U AMIC #### [facility] [address] [address] [address] Manda York Anion gap [Moles/Vol] 11.6 mmol/L Normal [facility] Comment on above: Performed By: #### U AMIC #### [facility] [address] [address] [address] Manda York AST [Catalytic activity/Vol] 15 U/L Normal 15-37 [facility] Comment on above: Performed By: #### U AMIC #### [facility] [address] [place] [address] Dr. Manda York Bilirubin [Mass/Vol] 0.2 mg/dL Normal 0.2-1.0 [facility] Comment on above: Performed By: #### U AMIC #### [facility] [address] [place] [address] Dr. Manda York Calcium [Mass/Vol] 8.7 mg/dL Normal 8.5-10.1 [facility] Comment on above: Performed By: #### U AMIC #### [facility] [address] [address] [address] Manda York Chloride [Moles/Vol] 104 mmol/L Normal 98-107 [facility] Comment on above: Performed By: #### U AMIC #### [facility] [address] [address] [address] Manda York CO2 [Moles/Vol] 25.1 mmol/L Normal 21.0-32.0 [facility] Comment on above: Performed By: #### U AMIC #### [facility] [address] [address] [address] Manda York Creatinine [Mass/Vol] 0.80 mg/dL Normal 0.55-1.02 [facility] Comment on above: Performed By: #### U AMIC #### [facility] [address] [address] [address] Manda York EGFR-AF CHILEAN >60 Normal >=60 [facility] Comment on above: Performed By: #### U AMIC #### [facility] [address] [address] [address] Manda York EGFR-NON AF CHILEAN >60 Normal >=60 [facility] Comment on above: Performed By: #### U AMIC #### [facility] [address] [address] [address] Manda York Globulin (S) [Mass/Vol] 3.6 g/dL Normal [facility] Comment on above: Performed By: #### U AMIC #### [facility] [address] [address] [address] Manda York Glucose [Mass/Vol] 92 mg/dL Normal 74-106 [facility] Comment on above: Performed By: #### U AMIC #### [facility] [address] [address] [address] Manda York Potassium [Moles/Vol] 3.7 mmol/L Normal 3.5-5.1 [facility] Comment on above: Performed By: #### U AMIC #### [facility] [address] [address] [address] Manda York Protein [Mass/Vol] 7.1 g/dL Normal 6.4-8.2 [facility] Comment on above: Performed By: #### U AMIC #### [facility] [address] [address] [address] Manda Yrok Sodium [Moles/Vol] 137 mmol/L Normal 136-145 [facility] Comment on above: Performed By: #### U AMIC #### [facility] [address] [address] [address] Manda York Urea nitrogen [Mass/Vol] 17.0 mg/dL Normal 7.0-18.0 [facility] Comment on above: Performed By: #### U AMIC #### [facility] [address] [place] [address] Dr. Manda York Urea nitrogen/Creatinine [Mass ratio] 21.2 mg/mg Normal [facility] Comment on above: Performed By: #### U AMIC #### [facility] [address] [place] [address] Dr. Manda York SED RATE WESTERGRENon 2021 SED RATE 40 mm/hr Critically high <=20 [facility] Comment on above: Performed By: #### S EDR #### [facility] [address] [place] [address] Dr. Manda York TSHon 02-14-2022 TSH 1.155 uIU/mL Normal 0.358-3.740 [facility] Comment on above: Performed By: #### U AMIC #### [facility] [address] [place] [address] Dr. Manda York UA RANDOM W/MICROSCOPICon BACTERIA NONE SEEN Normal NONE SEEN [facility] Comment on above: Performed By: #### U AMIC #### [facility] [address] [place] [address] Dr. Manda York Bilirubin Ql (U) Negative Normal NEGATIVE [facility] Comment on above: Performed By: #### U AMIC #### [facility] [address] [place] [address] Dr. Manda York CAST NONE SEEN Normal NONE SEEN [facility] Comment on above: Performed By: #### U AMIC #### [facility] [address] [place] [address] Dr. Manda York Clarity (U) CLEAR Normal CLEAR [facility] Comment on above: Performed By: #### U AMIC #### [facility] [address] [place] [address] Dr. Manda York Color (U) LT. YELLOW Normal YELLOW [facility] Comment on above: Performed By: #### U AMIC #### [facility] [address] [place] [address] Dr. Manda York Crystals LM Nom (Urine sed) NONE SEEN Normal NONE SEEN [facility] Comment on above: Performed By: #### U AMIC #### [facility] [address] [address] [address] Manda York Epithelial cells LM Ql (Urine sed) RARE Normal NONE SEEN /RARE [facility] Comment on above: Performed By: #### U AMIC #### [facility] [address] [address] [address] Manda York Glucose Ql (U) Negative Normal NEGATIVE [facility] Comment on above: Performed By: #### U AMIC #### [facility] [address] [place] [address] Dr. Manda York Hemoglobin Ql (U) Negative Normal NEGATIVE [facility] Comment on above: Performed By: #### U AMIC #### [facility] [address] [place] [address] Dr. Manda York Ketones Ql (U) Negative Normal NEGATIVE [facility] Comment on above: Performed By: #### U AMIC #### [facility] [address] [address] [address] Manda York LEUKOCYTES Negative Normal NEGATIVE [facility] Comment on above: Performed By: #### U AMIC #### [facility] [address] [address] [address] Manda York MUCOUS NONE SEEN Normal NONE SEEN [facility] Comment on above: Performed By: #### U AMIC #### [facility] [address] [place] [address] Dr. Manda York Nitrite Ql (U) Negative Normal NEGATIVE [facility] Comment on above: Performed By: #### U AMIC #### [facility] [address] [address] [address] Manda York pH (U) 6.0 [pH] Normal 5-9 [facility] Comment on above: Performed By: #### U AMIC #### [facility] [address] [place] [address] Dr. Manda York RBC NONE SEEN Abnormal 0-2 [facility] Comment on above: Performed By: #### U AMIC #### [facility] [address] [place] [address] Dr. Manda York SPEC GRAVITY 1.005 Normal 1.005-<=1.02 5 [facility] Comment on above: Performed By: #### U AMIC #### [facility] [address] [place] [address] Dr. Manda York UA PROTEIN Negative Normal NEGATIVE/ TRACE [facility] Comment on above: Performed By: #### U AMIC #### [facility] [address] [place] [address] Dr. Manda York Urobilinogen Qn (U) 0.2 {Carmella'U}/dL Normal 0.2 - 1. 0 [facility] Comment on above: Performed By: #### U AMIC #### [facility] [address] [place] [address] Dr. Manda York WBC NONE SEEN Normal NONE SEEN [facility] Comment on above: Performed By: #### U AMIC #### [facility] [address] [place] [address] Dr. Manda York URIC ACID SERUMon 02-14-2022 Urate [Mass/Vol] 4.2 mg/dL Normal 2.6-6.0 [facility] Comment on above: Performed By: #### U AMIC #### [facility] [address] [place] [address] Dr. Manda York VITAMIN D 25 OHon 02-14-2022 VIT D 25-OH 22.4 ng/mL Normal [facility] Comment on above: Performed By: #### F T4 #### [facility] [address] [place] [address] Dr. Manda York VIT D RANGES SEE BELOW Normal [facility] Comment on above: Result Comment: <20 ng/mL Vit D deficient 20 - <30 ng/mL Vit D insufficient 30 - 100 ng/mL Vit D sufficient >100 ng/mL Potential Toxicity Performed By: #### F T4 #### [facility] [address] [place] [address] Dr. Manda York METANEPHRINES FRAC. QNT 24 H R URINEon 11-28-2021 Metanephrine, U,24hr Comment Normal 36-209 [facility] Comment on above: Result Comment: No t otal volume submitted. Unable to calculate 24 hour result. Performed By: #### LEANN PATRICKC #### [facility] [address] [place] [address] Dr. Manda York Metanephrine, Ur 57 ug/L Normal Undefined [facility] Comment on above: Performed By: #### LEANN PATRICKC #### [facility] [address] [place] [address] Dr. Manda York Normetanephr.,U,24h Comment Normal 131-612 [facility] Comment on above: Result Comment: No t otal volume submitted. Unable to calculate 24 hour result. Performed By: #### LEANN PATRICKC #### [facility] [address] [place] [address] Dr. Manda York Normetanephrine, Ur 116 ug/L Normal Undefined [facility] Comment on above: Performed By: #### LEANN PATRICKC #### [facility] [address] [place] [address] Dr. Manda York METANEPHRINES PLASMA FREEon 11-27-2021 Metanephrine, Pl 22.1 pg/mL Normal 0.0-88.0 [facility] Comment on above: Performed By: #### LEANN PATRICKC #### [facility] [address] [place] [address] Dr. Manda York Normetanephrine, Pl 50.7 pg/mL Normal 0.0-218.9 [facility] Comment on above: Performed By: #### LEANN PATRICKC #### [facility] [address] [place] [address] Dr. Manda York CMV PLASMA PCRon 11-19-2021 CMV Quant DNA PCR (Plasma) Negative Normal Negative [facility] Comment on above: Result Comment: No C MV DNA detected. The quantitative range of this assay is 200 to 1 million IU/mL. Performed By: #### LEANN PATRICKC #### [facility] [address] [place] [address] Dr. Manda York log10 CMV Qn DNA Pl UPTCAL Normal [facility] Comment on above: Result Comment: Unab le to calculate result since non-numeric result obtained for component test. Performed By: #### S LUIGI MELO #### [facility] [address] [place] [address] Dr. Manda York CMV AB IGMon 11-18-2021 Cytomegalovirus (CMV) Ab, IgM 43.2 AU/mL Critically high 0.0-29.9 [facility] Comment on above: Result Comment: Nega tive <30.0 Equivocal 30.0 - 34.9 Positive >34.9 A positive result is generally indicative of acute infection, reactivation or persistent IgM production. Performed By: #### S LUIGI MELO #### [facility] [address] [place] [address] Dr. Manda York CMV AB, IGGon 11-18-2021 Cytomegalovirus (CMV) Ab, IgG >10.00 Critically high 0.00-0.59 [facility] Comment on above: Result Comment: Nega tive <0.60 Equivocal 0.60 - 0.69 Positive >0.69 Performed By: #### C MVIGG #### [facility] [address] [place] [address] Dr. Manda York CBC AUTO DIFFon 11-17-2021 BASO # 0.1 103/ul Normal 0.0-0.1 [facility] Comment on above: Performed By: #### C BC #### [facility] [address] [place] [address] Dr. Manda York Basophils/100 WBC (Bld) 0.6 % Normal 0.2-2.0 [facility] Comment on above: Performed By: #### C BC #### [facility] [address] [place] [address] Dr. Manda York EO # 0.2 103/ul Normal 0.0-0.7 [facility] Comment on above: Performed By: #### C BC #### [facility] [address] [place] [address] Dr. Manda York Eosinophils/100 WBC (Bld) 2.3 % Normal 0.9-7.0 [facility] Comment on above: Performed By: #### C BC #### [facility] [address] [place] [address] Dr. Manda York Erythrocyte distribution width (RBC) [Ratio] 14.2 % Normal 11.0-15.0 [facility] Comment on above: Performed By: #### C BC #### [facility] [address] [place] [address] Dr. Manda York Hematocrit (Bld) [Volume fraction] 40.2 % Normal 36.0-48.0 [facility] Comment on above: Performed By: #### C BC #### [facility] [address] [place] [address] Dr. Manda York Hemoglobin (Bld) [Mass/Vol] 12.8 g/dL Normal 12.0-16.0 [facility] Comment on above: Performed By: #### C BC #### [facility] [address] [place] [address] Dr. Manda York IG # 0.02 10e3/ul Normal 0.00-0.03 [facility] Comment on above: Performed By: #### C BC #### [facility] [address] [place] [address] Dr. Manda York IG % 0.2 % Normal 0.0-0.5 [facility] Comment on above: Performed By: #### C BC #### [facility] [address] [place] [address] Dr. Manda York LYMPH # 2.5 103/ul Normal 1.2-3.8 [facility] Comment on above: Performed By: #### C BC #### [facility] [address] [place] [address] Dr. Manda York Lymphocytes/100 WBC (Bld) 24.9 % Normal 20.5-60.0 [facility] Comment on above: Performed By: #### C BC #### [facility] [address] [place] [address] Dr. Manda York MANUAL DIFF REQ NO Normal [facility] Comment on above: Performed By: #### C BC #### [facility] [address] [place] [address] Dr. Manda York MCH (RBC) [Entitic mass] 27.9 pg Normal 26.7-34.0 [facility] Comment on above: Performed By: #### C BC #### [facility] [address] [place] [address] Dr. Manda York MCHC (RBC) [Mass/Vol] 31.8 g/dL Normal 29.9-35.2 [facility] Comment on above: Performed By: #### C BC #### [facility] [address] [place] [address] Dr. Manda York MCV (RBC) [Entitic vol] 87.6 fL Normal 81.0-99.0 [facility] Comment on above: Performed By: #### C BC #### [facility] [address] [place] [address] Dr. Manda York MONO # 0.6 103/ul Normal 0.3-0.8 [facility] Comment on above: Performed By: #### C BC #### [facility] [address] [place] [address] Dr. Manda York Monocytes/100 WBC (Bld) 6.3 % Normal 1.7-12.0 [facility] Comment on above: Performed By: #### C BC #### [facility] [address] [place] [address] Dr. Manda York NEUT # 6.5 103/ul Normal 1.4-6.5 [facility] Comment on above: Performed By: #### C BC #### [facility] [address] [place] [address] Dr. Manda York Neutrophils/100 WBC (Bld) 65.7 % Normal 43.0-75.0 [facility] Comment on above: Performed By: #### C BC #### [facility] [address] [place] [address] Dr. Manda York Platelet mean volume (Bld) [Entitic vol] 10.1 fL Normal 9.5-13.5 [facility] Comment on above: Performed By: #### C BC #### [facility] [address] [place] [address] Dr. Manda York PLT 304 103/ul Normal 150-450 [facility] Comment on above: Performed By: #### C BC #### [facility] [address] [place] [address] Dr. Manda York RBC 4.59 106/ul Normal 4.20-5.40 [facility] Comment on above: Performed By: #### C BC #### [facility] [address] [place] [address] Dr. Manda York WBC 9.9 103/ul Normal 4.0-11.0 [facility] Comment on above: Performed By: #### C BC #### [facility] [address] [place] [address] Dr. Manda York PROF 14(COMP METB)on 022 Albumin [Mass/Vol] 3.7 g/dL Normal 3.4-5.0 [facility] Comment on above: Performed By: #### C BC #### [facility] [address] [place] [address] Dr. Manda York Albumin/Globulin [Mass ratio] 1.0 {ratio} Normal [facility] Comment on above: Performed By: #### C BC #### [facility] [address] [place] [address] Dr. Manda York ALP [Catalytic activity/Vol] 65 U/L Normal 46-116 [facility] Comment on above: Performed By: #### C BC #### [facility] [address] [place] [address] Dr. Manda York ALT [Catalytic activity/Vol] 35 U/L Normal 14-59 [facility] Comment on above: Performed By: #### C BC #### [facility] [address] [place] [address] Dr. Manda York Anion gap [Moles/Vol] 13.0 mmol/L Normal [facility] Comment on above: Performed By: #### C BC #### [facility] [address] [place] [address] Dr. Manda York AST [Catalytic activity/Vol] 12 U/L Critically low 15-37 [facility] Comment on above: Performed By: #### C BC #### [facility] [address] [place] [address] Dr. Manda York Bilirubin [Mass/Vol] 0.2 mg/dL Normal 0.2-1.0 [facility] Comment on above: Performed By: #### C BC #### [facility] [address] [place] [address] Dr. Manda York Calcium [Mass/Vol] 8.7 mg/dL Normal 8.5-10.1 [facility] Comment on above: Performed By: #### C BC #### [facility] [address] [place] [address] Dr. Manda York Chloride [Moles/Vol] 104 mmol/L Normal 98-107 [facility] Comment on above: Performed By: #### C BC #### [facility] [address] [place] [address] Dr. Manda York CO2 [Moles/Vol] 24.9 mmol/L Normal 21.0-32.0 [facility] Comment on above: Performed By: #### C BC #### [facility] [address] [place] [address] Dr. Manda York Creatinine [Mass/Vol] 0.77 mg/dL Normal 0.55-1.02 [facility] Comment on above: Performed By: #### C BC #### [facility] [address] [place] [address] Dr. Manda York EGFR-AF CHILEAN >=60 Normal >=60 [facility] Comment on above: Performed By: #### C BC #### [facility] [address] [place] [address] Dr. Manda York EGFR-NON AF CHILEAN >=60 Normal >=60 [facility] Comment on above: Performed By: #### C BC #### [facility] [address] [place] [address] Dr. Manda York Globulin (S) [Mass/Vol] 3.8 g/dL Normal [facility] Comment on above: Performed By: #### C BC #### [facility] [address] [address] [address] Manda York Glucose [Mass/Vol] 110 mg/dL Critically high 74-106 [facility] Comment on above: Performed By: #### C BC #### [facility] [address] [address] [address] Manda York Potassium [Moles/Vol] 3.9 mmol/L Normal 3.5-5.1 [facility] Comment on above: Performed By: #### C BC #### [facility] [address] [address] [address] Manda York Protein [Mass/Vol] 7.5 g/dL Normal 6.4-8.2 [facility] Comment on above: Performed By: #### C BC #### [facility] [address] [address] [address] Manda York Sodium [Moles/Vol] 138 mmol/L Normal 136-145 [facility] Comment on above: Performed By: #### C BC #### [facility] [address] [address] [address] Manda York Urea nitrogen [Mass/Vol] 17.0 mg/dL Normal 7.0-18.0 [facility] Comment on above: Performed By: #### C BC #### [facility] [address] [address] [address] Manda York Urea nitrogen/Creatinine [Mass ratio] 22.1 mg/mg Normal [facility] Comment on above: Performed By: #### C BC #### [facility] [address] [address] [address] Manda York SED RATE Merged with [facility] 2021 SED RATE 45 mm/hr Critically high <=20 [facility] Comment on above: Performed By: #### F T4 #### [facility] [address] [address] [address] Manda York CHRISTIAN EIA W/REFLEX 5 BIOMARKER Son 10-06-2021 CHRISTIAN Direct Positive Abnormal Negative [facility] Comment on above: Performed By: #### C BC #### [facility] [address] [address] [address] Manda York Anti-DNA (DS) Ab Qn 10 IU/mL Critically high 0-9 [facility] Comment on above: Result Comment: Nega tive <5 Equivocal 5 - 9 Positive >9 Performed By: #### C BC #### [facility] [address] [place] [address] Dr. Manda York BICYCLE REPAIR TECHNICIAN Antibodies <0.2 Normal 0.0-0.9 [facility] Comment on above: Performed By: #### C BC #### [facility] [address] [place] [address] Dr. Manda York SEE BELOW: Comment Normal [facility] Comment on above: Result Comment: Auto [...] Sm (anti-Schneider) SLE 15 - 30% --------- BICYCLE REPAIR TECHNICIAN Mixed Connective Tissue Disease 95% (U1 nRNP, SLE 30 - 50% anti-ribonucleoprotein) Polymyositis and/or Dermatomyositis 20% --------- Scl-70 (antiDNA Scleroderma (diffuse) 20 - 35% topoisomerase) Crest 13% --------- Felicita-1 Polymyositis and/or Dermatomyositis 20 - 40% --------- Centromere B Scleroderma - Crest variant 80% Performed By: #### C BC #### [place] [address] [address] Yilan York Sjogren's Anti-SS-A <0.2 Normal 0.0-0.9 [facility] Comment on above: Performed By: #### C BC #### [facility] [address] [place] [address] Dr. Manda York Sjogren's Anti-SS-B <0.2 Normal 0.0-0.9 [facility] Comment on above: Performed By: #### C BC #### [facility] [address] [place] [address] Dr. Manda York Schneider Antibodies <0.2 Normal 0.0-0.9 [facility] Comment on above: Performed By: #### C BC #### [facility] [address] [place] [address] Dr. Manda York CMV PLASMA PCRon 10-06-2021 CMV Quant DNA PCR (Plasma) Negative Normal Negative [facility] Comment on above: Result Comment: No C MV DNA detected. The quantitative range of this assay is 200 to 1 million IU/mL. Performed By: #### C MVPL #### [facility] [address] [place] [address] Dr. Manda York log10 CMV Qn DNA Pl UPTCAL Normal [facility] Comment on above: Result Comment: Unab le to calculate result since non-numeric result obtained for component test. Performed By: #### C MVPL #### [facility] [address] [place] [address] Dr. Manda York CMV AB IGMon 2021 Cytomegalovirus (CMV) Ab, IgM 35.5 AU/mL Critically high 0.0-29.9 [facility] Comment on above: Result Comment: Nega tive <30.0 Equivocal 30.0 - 34.9 Positive >34.9 A positive result is generally indicative of acute infection, reactivation or persistent IgM production. Performed By: #### S LEANN MELOC #### [facility] [address] [place] [address] Dr. Manda York CMV AB, IGGon 2021 Cytomegalovirus (CMV) Ab, IgG 6.30 U/mL Critically high 0.00-0.59 [facility] Comment on above: Result Comment: Nega tive <0.60 Equivocal 0.60 - 0.69 Positive >0.69 Performed By: #### S [facility] #### [facility] [facility] [address] [place] [address] Dr. Manda York CBC AUTO DIFFon 10-03-2021 BASO # 0.1 103/ul Normal 0.0-0.1 [facility] Comment on above: Performed By: #### C BC #### [facility] [address] [place] [address] Dr. Manda York Basophils/100 WBC (Bld) 0.7 % Normal 0.2-2.0 [facility] Comment on above: Performed By: #### C BC #### [facility] [address] [place] [address] Dr. Manda York EO # 0.2 103/ul Normal 0.0-0.7 [facility] Comment on above: Performed By: #### C BC #### [facility] [address] [place] [address] Dr. Manda York Eosinophils/100 WBC (Bld) 2.0 % Normal 0.9-7.0 [facility] Comment on above: Performed By: #### C BC #### [facility] [address] [place] [address] Dr. Manda York Erythrocyte distribution width (RBC) [Ratio] 14.4 % Normal 11.0-15.0 [facility] Comment on above: Performed By: #### C BC #### [facility] [address] [place] [address] Dr. Manda York Hematocrit (Bld) [Volume fraction] 37.2 % Normal 36.0-48.0 [facility] Comment on above: Performed By: #### C BC #### [facility] [address] [place] [address] Dr. Manda York Hemoglobin (Bld) [Mass/Vol] 12.3 g/dL Normal 12.0-16.0 [facility] Comment on above: Performed By: #### C BC #### [facility] [address] [place] [address] Dr. Manda York IG # 0.02 10e3/ul Normal 0.00-0.03 [facility] Comment on above: Performed By: #### C BC #### [facility] [address] [place] [address] Dr. Manda York IG % 0.2 % Normal 0.0-0.5 [facility] Comment on above: Performed By: #### C BC #### [facility] [address] [place] [address] Dr. Manda York LYMPH # 2.1 103/ul Normal 1.2-3.8 [facility] Comment on above: Performed By: #### C BC #### [facility] [address] [place] [address] Dr. Manda York Lymphocytes/100 WBC (Bld) 26.4 % Normal 20.5-60.0 [facility] Comment on above: Performed By: #### C BC #### [facility] [address] [place] [address] Dr. Manda York MANUAL DIFF REQ NO Normal [facility] Comment on above: Performed By: #### C BC #### [facility] [address] [place] [address] Dr. Manda York MCH (RBC) [Entitic mass] 29.2 pg Normal 26.7-34.0 [facility] Comment on above: Performed By: #### C BC #### [facility] [address] [place] [address] Dr. Manda York MCHC (RBC) [Mass/Vol] 33.1 g/dL Normal 29.9-35.2 [facility] Comment on above: Performed By: #### C BC #### [facility] [address] [place] [address] Dr. Manda York MCV (RBC) [Entitic vol] 88.4 fL Normal 81.0-99.0 [facility] Comment on above: Performed By: #### C BC #### [facility] [address] [place] [address] Dr. Manda York MONO # 0.5 103/ul Normal 0.3-0.8 [facility] Comment on above: Performed By: #### C BC #### [facility] [address] [place] [address] Dr. Manda York Monocytes/100 WBC (Bld) 6.7 % Normal 1.7-12.0 [facility] Comment on above: Performed By: #### C BC #### [facility] [address] [place] [address] Dr. Manda York NEUT # 5.2 103/ul Normal 1.4-6.5 [facility] Comment on above: Performed By: #### C BC #### [facility] [address] [place] [address] Dr. Manda York Neutrophils/100 WBC (Bld) 64.0 % Normal 43.0-75.0 [facility] Comment on above: Performed By: #### C BC #### [facility] [address] [place] [address] Dr. Manda York Platelet mean volume (Bld) [Entitic vol] 10.5 fL Normal 9.5-13.5 [facility] Comment on above: Performed By: #### C BC #### [facility] [address] [place] [address] Dr. Manda York PLT 265 103/ul Normal 150-450 [facility] Comment on above: Performed By: #### C BC #### [facility] [address] [place] [address] Dr. Manda York RBC 4.21 106/ul Normal 4.20-5.40 [facility] Comment on above: Performed By: #### C BC #### [facility] [address] [place] [address] Dr. Manda York WBC 8.1 103/ul Normal 4.0-11.0 [facility] Comment on above: Performed By: #### C BC #### [facility] [address] [place] [address] Dr. Manda York CRPon 10-03-2021 CRP [Mass/Vol] mg/L Normal <=1.0 [facility] Comment on above: Performed By: #### F T4 #### [facility] [address] [address] [address] Manda York SED RATE Merged with [facility] 2021 SED RATE 34 mm/hr Critically high <=20 [facility] Comment on above: Performed By: #### C BC #### [facility] [address] [address] [address] Manda York CHLORIDE (POC)Ordered By: Jae Holley on 10-07-2020 Chloride [Moles/Vol] 106 mmol/L 98 - 10 7 mmol/L Ushi Phone: Catheterization and angiogra phy procedure details panelOrdered By: Jaren Holley on 10-07-2020 Cardiac Diagnostic R eport Demographics Patient TERA Torres Date of Study 10/07/2020 Name Date of 1980 Gender Female Age 40 year(s) Race Room [id number]^GINO Height: 67 inch, 170.18 cm Number Corporate [id number] Weight: 234 pounds, 106.1 kg ID # Patient [id number] BSA: 2.16 m^2 BMI: 36.65 kg/m^2 Acct # MR # [id number] Performing Jaren Holley Physician Referring # Physician [...] Right coronary angiography. Contrast Material: - Isovue 32327 ml Fluoroscopy Time: Diagnostic: 2:12 minutes. Total: [...] assessed as CCS II according to the Yemeni clinical classification. Hemodynamics Condition: Baseline Room Air [...] ---------+ + !Aortic (more content not included)... Ushi Phone: Jr, Mhpn Incoming C ardio Results From Cpacs/Ge - 10/07/2020 10:37 AM EDT Cardiac Diagnostic Report Demographics Patient TERA Torres Date of Study 10/07/2020 Name Date of 1980 Gender Female Age 40 year(s) Race Room 1120586^LEYDI^JAREN Height: 67 inch, 170.18 cm Number Corporate [id number] Weight: 234 pounds, 106.1 kg ID # Patient [id number] BSA: 2.16 m^2 BMI: 36.65 kg/m^2 Acct # MR # [id number] Performing Jaren Holley Physician Referring # Physician [...] Right coronary angiography. Contrast Material: - Isovue 72157 ml Fluoroscopy Time: Diagnostic: 2:12 minutes. Total: [...] assessed as CCS II according to the Yemeni clinical classification. Hemodynamics Condition: Baseline Room Air Estimated: 246.52Heart Rate: 103 bpm Pressure +-----+ + !Site !Pressure ! +-----+ + !AO !106/68 (86) ! +-----+ + !AO !104/ (87) ! +-----+ + !AO !112/ (86) ! +-----+ + !LV !126/0 ,1 [...] + ---------+ + Shunts Oxygen Values O2 Esgfidwk088.4O2 Rxavdqcvkwj883.52 Ushi Phone: Ushi Phone: Ushi Phone: Creatinine W/GFR Point of Ca reOrdered By: Jaren Holley on 10-07-2020 Creatinine [Mass/Vol] 0.64 mg/dL 0.51 - 1.19 mg/dL Ushi Phone: GFR Non- >60 >60 mL/min Ushi Phone: GFR/1.73 sq M.predicted MDRD (S/P/Bld) [Vol rate/Area] mL/min/{1.73_m2} >60 mL/min Ushi Phone: GFR/1.73 sq M.predicted MDRD (S/P/Bld) [Vol rate/Area] Ushi Phone: Comment on above: Average GFR for 40-4 9 years old: 99 mL/min/1.73sq m Chronic Kidney Disease: <60 mL/min/1.73sq m Kidney failure: <15 mL/min/1.73sq m eGFR calculated using average adult body mass. Additional eGFR calculator available at: http://www.Mobileye/multiple_crcl_2012.htm Hemoglobin and hematocrit, b loodOrdered By: Jaren Holley on 10-07-2020 Hematocrit (Bld) [Volume fraction] 41 % 36 - 46 % Ushi Phone: Hemoglobin (Bld) [Mass/Vol] 14.0 g/dL 12.0 - 16.0 g/dL Ushi Phone: No Panel InformationOrdered By: Jaren Holley on 10-07-2020 Ushi Phone: POCT GlucoseOrdered By: Anu Holley on 10-07-2020 Glucose [Mass/Vol] 98 mg/dL 74 - 100 mg/dL Ushi Phone: POCT urine pregnancyOrdered By: Jaren Holley on 10-07-2020 Beta HCG ( test) Ql (U) Negative NEGATIVE Ushi Phone: Comment on above: Specimens with hCG l evels near the threshold of the test (25 mIU/mL) may give a negative or indeterminate result. In such cases, another test should be performed with a new specimen in 48-72 hours. If early is suspected clinically in this setting, correlation with quantitative serum b-hCG level is suggested. Ushi Phone: POTASSIUM (POC)Ordered By: Al Holley on 10-07-2020 Potassium [Moles/Vol] 3.8 mmol/L 3.5 - 4.5 mmol/L Ushi Phone: Platelet Counton 10-07-2020 Platelets (Bld) [#/Vol] 299 10*3/uL Normal 138-453 [facility] Comment on above: Performed By: #### P LT #### [employer] [address] [place] [id number] Database Admin: Rick Serrano MD Platelet countOrdered By: Jae Holley on 10-07-2020 Platelets (Bld) [#/Vol] 299 10*3/uL Ushi Phone: Ushi Phone: SODIUM (POC)Ordered By: Anu Holley on 10-07-2020 Sodium [Moles/Vol] 141 mmol/L 138 - 146 mmol/L Ushi Phone: Coding Summary.on 01-12-2019 Coding Summary. CODING DATE: 019 [facility] STATUS: Home (Routine [place]) PAYOR: Medicaid EA [...] mass index (BMI) 34.0-34.9, adult Z79.899 Other jail (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 However, the narrative phrase printed from the coding software may appear abbreviated, or result in slightly different terminology. Coded By: Luz Judd Date Saved: 01/12/2019 10:25 am [facility] Coding Summary. CODING DATE: 019 [facility] STATUS: Home (Routine [place]) PAYOR: Medicaid EA DESCRIPTION 0413 CARDIOGRAM 0457 [...] mass index (BMI) 34.0-34.9, adult Z79.899 Other jail (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 However, the narrative phrase printed from the coding software may appear abbreviated, or result in slightly different terminology. Revised Coded By: Luz Judd Revised Date Saved: 01/12/2019 10:25 am [facility] XR Chest 2 Viewson 9 XR [...] Valenzuela M.D. Transcribed by: BILL Technologist: ZOILA Normal [facility] Auto Diffon 01-11-2019 Basophils/100 WBC (Bld) 0.8 % Normal 0.0-2.0 [facility] Comment on above: Order Comment: Order Added by Discern Expert. Performed By: #### 1 [id number], 8112141, 4415583, 5562667, 01502163, 3881359, 9187974, 1903432, 9271548, 40369322, 9446094 #### [facility] [address] [place] [address] Basophils/Leukocytes Auto (Bld) [Pure # fraction] 0.1 E9/L Normal 0.0-0.2 [facility] Comment on above: Order Comment: Order Added by Discern Expert. Performed By: #### 1 9262897, 0951048, 9261964, 2091499, 70941711, 5781845, 9887703, 1524628, 4220407, 54489725, 4232467 #### [facility] [address] [place] [address] Eosinophils/100 WBC (Bld) 1.9 % Normal 0.0-8.0 [facility] Comment on above: Order Comment: Order Added by Discern Expert. Performed By: #### 1 3838754, 0397939, 9633408, 7966801, 75597943, 3602048, 0084558, 2782642, 5618561, 45484551, 0702780 #### [facility] [address] [place] [address] Eosinophils/Leukocyt es Auto (Bld) [Pure # fraction] 0.1 E9/L Normal 0.0-0.5 [facility] Comment on above: Order Comment: Order Added by Discern Expert. Performed By: #### 1 6101978, 9057775, 1533581, 7527540, 26312253, 4998022, 2659193, 7991032, 2301345, 06198508, 7762207 #### [facility] [address] [place] [address] Lymphocytes/100 WBC (Bld) 28.0 % Normal 14.0-50.0 [facility] Comment on above: Order Comment: Order Added by Discern Expert. Performed By: #### 1 7841288, 8095741, 5524036, 5829809, 27997722, 8616842, 1797120, 1907825, 6254872, 88768932, 5210487 #### [facility] [address] [place] [address] Lymphocytes/Leukocyt es Auto (Bld) [Pure # fraction] 2.2 E9/L Normal 1.0-4.0 [facility] Comment on above: Order Comment: Order Added by Discern Expert. Performed By: #### 1 3220822, 8802800, 0624048, 3749154, 91660259, 3656822, 5827054, 6892913, 2597813, 18688415, 7390274 #### [facility] [address] [place] [address] Monocytes/100 WBC (Bld) 7.0 % Normal 4.0-14.0 [facility] Comment on above: Order Comment: Order Added by Discern Expert. Performed By: #### 1 3293525, 4926590, 4365838, 6351026, 67318592, 7592162, 0928811, 0388696, 4773692, 94407956, 0161125 #### [facility] [address] [place] [address] Monocytes/Leukocytes Auto (Bld) [Pure # fraction] 0.6 E9/L Normal 0.2-1.0 [facility] Comment on above: Order Comment: Order Added by Discern Expert. Performed By: #### 1 7319858, 6557349, 4813396, 9598231, 56360414, 8887590, 5104021, 5806374, 5119435, 64973830, 9187366 #### [facility] [address] [place] [address] Neutrophils/100 WBC (Bld) 62.3 % Normal 36.0-75.0 [facility] Comment on above: Order Comment: Order Added by Discern Expert. Performed By: #### 1 2073118, 7048381, 3473822, 6505098, 92685142, 3560381, 6784278, 9335290, 3786785, 48770079, 3927299 #### [facility] [address] [place] [address] Neutrophils/Leukocyt es Auto (Bld) [Pure # fraction] 4.9 E9/L Normal 2.0-7.5 [facility] Comment on above: Order Comment: Order Added by Discern Expert. Performed By: #### 1 1698851, 1384996, 0685333, 5675999, 60798484, 4437803, 8241658, 7212842, 8145843, 50930344, 9356431 #### [facility] [address] [place] [address] BMPon 01-11-2019 Creatinine [Mass/Vol] 0.7 mg/dL Normal 0.5-1.3 [facility] Comment on above: Performed By: #### 1 0651298, 0426418, 5159226, 9926908, 14234528, 1341284, 5157522, 6646548, 0811912, 09828522, 1469287 #### [facility] [address] [place] [address] Urea nitrogen [Mass/Vol] 11 mg/dL Normal 5-21 [facility] Comment on above: Performed By: #### 1 3257950, 9672311, 1445472, 6449737, 15495398, 4222166, 9637392, 8947292, 0695546, 96004481, 1406632 #### [facility] [address] [place] [address] Urea nitrogen/Creatinine [Mass ratio] 16 No Units Normal 10-20 [facility] Comment on above: Performed By: #### 1 9430771, 9251956, 2545140, 7064399, 07261863, 8919385, 4436193, 0207185, 5546874, 40124250, 4868451 #### [facility] [address] [place] [address] Anion gap [Moles/Vol] 14 mmol/L Normal 6-16 [facility] Comment on above: Performed By: #### 1 9155400, 8409785, 1525086, 0031626, 41684389, 4619986, 1448527, 0559504, 6631875, 43281251, 7518504 #### [facility] [address] [place] [address] Calcium [Mass/Vol] 8.9 mg/dL Normal 8.9-11.1 [facility] Comment on above: Performed By: #### 1 2602197, 9460707, 8536321, 3419551, 42864274, 7870099, 4892115, 7122841, 5797712, 85233611, 2447109 #### [facility] [address] [place] [address] Chloride [Moles/Vol] 107 mmol/L Normal 101-111 [facility] Comment on above: Performed By: #### 1 5319593, 4254488, 2474307, 6562239, 83888141, 0603488, 2184535, 9588649, 9493746, 82895340, 0039638 #### [facility] [address] [place] [address] CO2 [Moles/Vol] 22 mmol/L Normal 21-31 [facility] Comment on above: Performed By: #### 1 0326859, 2463079, 9988727, 0227508, 01811577, 7728335, 3689216, 3845085, 5934692, 11722705, 2678111 #### [facility] [address] [place] [address] Glucose [Mass/Vol] 122 mg/dL Normal 55-199 [facility] Comment on above: Result Comment: If t his glucose result represents a fasting glucose, interpretation should refer to the following reference range: 55-99 mg/dL Performed By: #### 1 6855501, 2220153, 3479267, 3516603, 06522747, 3414928, 4842005, 5796526, 0633185, 10460018, 7274076 #### [facility] [address] [place] [address] Potassium [Moles/Vol] 3.8 mmol/L Normal 3.5-5.3 [facility] Comment on above: Performed By: #### 1 3154369, 4788280, 3487956, 1534637, 08527041, 5188188, 6906846, 0913560, 9967519, 77357651, 1766749 #### [facility] [address] [place] [address] Sodium [Moles/Vol] 139 mmol/L Normal 135-145 [facility] Comment on above: Performed By: #### 1 7303600, 4719789, 4903983, 5678057, 63874900, 2199856, 4792852, 7782852, 9652320, 53587978, 0944587 #### [facility] [address] [place] [address] CBC w/ Auto Diffon 9 Erythrocyte distribution width (RBC) [Ratio] 14.0 % Normal 10.9-14.2 [facility] Comment on above: Performed By: #### 1 7953832, 7228683, 7496227, 3258728, 22486197, 0960902, 2353482, 1150503, 1477337, 96794711, 3699719 #### [facility] [address] [place] [address] Hematocrit (Bld) [Volume fraction] 39.9 % Normal 34.0-46.0 [facility] Comment on above: Performed By: #### 1 8581537, 4667543, 5554122, 5715988, 62047132, 2825948, 7629278, 1101642, 7978062, 51352681, 1318405 #### [facility] [address] [place] [address] Hemoglobin (Bld) [Mass/Vol] 13.5 g/dL Normal 12.0-16.0 [facility] Comment on above: Performed By: #### 1 5567091, 7978824, 5079465, 0707514, 63515130, 8144346, 5535180, 5084156, 1156458, 45150727, 2213689 #### [facility] [address] [place] [address] MCH (RBC) [Entitic mass] 29.4 pg Normal 27.0-34.0 [facility] Comment on above: Performed By: #### 1 7011076, 2731220, 3465268, 6416653, 11681682, 7223747, 4220071, 1620914, 1746855, 00584061, 8049054 #### [facility] [address] [place] [address] MCHC (RBC) [Mass/Vol] 33.7 g/dL Normal 33.3-35.7 [facility] Comment on above: Performed By: #### 1 8010169, 9827075, 1438695, 0975846, 48074766, 7790517, 5894153, 6878411, 3469667, 64228158, 6250494 #### [facility] [address] [place] [address] MCV (RBC) [Entitic vol] 87.4 fL Normal 80.0-100.0 [facility] Comment on above: Performed By: #### 1 9287896, 0301582, 0322903, 0767979, 87568558, 5159135, 9293225, 6801267, 9558947, 07387369, 8553402 #### [facility] [address] [place] [address] Platelet mean volume (Bld) [Entitic vol] 8.5 fL Normal 6.4-10.8 [facility] Comment on above: Performed By: #### 1 0434820, 8145649, 1265069, 8654801, 50023975, 2244656, 0531738, 0612855, 6540309, 27350518, 1554839 #### [facility] [address] [place] [address] Platelets (Bld) [#/Vol] 244.0 E9/L Normal 150.0-500.0 [facility] Comment on above: Performed By: #### 1 0097617, 5594599, 6885346, 3320006, 38200369, 4420243, 6869398, 3292591, 7821338, 18921926, 1959698 #### [facility] [address] [place] [address] RBC (Bld) [#/Vol] 4.6 E12/L Normal 4.3-5.9 [facility] Comment on above: Performed By: #### 1 3735117, 4949452, 9523849, 8187023, 71358028, 5526476, 5345099, 9688424, 6600986, 06897254, 4541330 #### [facility] [address] [place] [address] WBC corrected for nucl RBC Auto (Bld) [#/Vol] 7.9 E9/L Normal 4.0-11.0 [facility] Comment on above: Performed By: #### 1 7903129, 0367475, 6150511, 2365493, 66555582, 3421482, 9359027, 7153182, 0788205, 49462653, 0816922 #### [facility] [address] [place] [address] D-Dimeron 01-11-2019 Fibrin D-dimer FEU (PPP) [Mass/Vol] 265 ng/mL Normal 215-500 [facility] Comment on above: Result Comment: This D-Dimer [...] infections Liver cirrhosis Performed By: #### 1 3406761, 0393465, 6747194, 1320230, 34852562, 5027358, 5609705, 9013769, 2864444, 52940502, 4987578 #### [facility] [address] [place] [address] ED Clinical Summaryon 2018 ED Clinical Summary (Inserted Image. Melissa ble to display) [address] [address] ED Clinical Summary Person Information Name: JONES HALEY [facility] Age: 38 Years : 1980 12:00 AM Sex: Female Language: South Sudanese PCP: Charles Mitchell DO Marital Status: Single Phone: [phone] Visit Id: Visit Reason: Chest pain; CHEST [...] 01/11/2019 6:42 PM 01/11/2019 6:42 PM ADDRESS: [address] [place] [id number] PHYS DOC NOTES: MEDICAL INFORMATION: Prescriptions Given: PATIENT EDUCATION INFORMATION: Instructions: Smoking Cessation; Chest Pain (Nonspecific) Follow up: With: Address: When: [address] [address] Business (1) Within 2 to 3 days Comments: Return to ED if symptoms worsen DIAGNOSIS: 1:Chest pain Normal [facility] ED Note-Physicianon 01-12-20 ED Note-Physician Basic Information [...] prescription medications Follow-up With When Contact Information [facility] Within 2 to [address] [place] [address] [facility] (1) Additional Instructions: Return to ED [...] Lymph Auto: 28 % (01/11/19 16:46:00 EDT) [place] Auto: 7 % (01/11/19 16:46:00 EDT) Eos Auto: 1.9 % (01/11/19 16:46:00 EDT) Basophil Auto: 0.8 % (01/11/19 16:46:00 EDT) Neutro Absolute: 4.9 E9/L (01/11/19 16:46:00 EDT) Lymph Absolute: 2.2 E9/L (01/11/19 16:46:00 EDT) [place] Absolute: 0.6 E9/L (01/11/19 16:46:00 EDT) Eos [...] Results EC01/11/19: SINUS RHYTHM RATE 84, NORMAL VT AND QRS, NO ST ELEVATION OR DEPRSSION, NORMAL AXIS, NORMAL QTC NORMAL ECG Signed By: Orin Browne DO 01/11/2019 15:54:18 Normal [facility] Comment on above: Result Comment: [...] and skin patches. Some may be available ylrr-zxh-xyxubwo and others require a prescription. ? Antidepressant [...] Document Reviewed: 08/18/2012 ExitCare? Patient Information ?2014 [employer]. This information is not intended to replace [...] Document Reviewed: 12/13/2008 ExitCare? Patient Information ?2014 [employer]. This information is not intended to replace advice given to you by your health care provider. Make sure you discuss any questions you have with your health care provider. Normal [facility] ED Patient Summaryon 019 ED Patient Summary (Inserted Image. Melissa ble to display) [address] [address] Patient Discharge Instructions Person Information Name: JONES HALEY Age: 38 Years Arrival Date: 01/11/2019 3:44 PM Discharge Diagnosis: 1:Chest pain Primary Care Physician: Charles Mitchell DO Provider Information Primary Provider: Orin Browne DO [employer]inist:None The exam and treatment you received in the Emergency Department were for an urgent problem and are not intended as complete care. It is important that you follow up with a doctor, nurse practitioner, or physician?s assistant editor for ongoing care. If your symptoms become worse or you do not improve as expected and you are unable to reach your usual health care provider, you should return to the Emergency Department. We are available 24 hours a day. JONES HALEY has been given the following list of patient education materials, prescriptions and follow-up instructions: Follow-up Instructions: With: Address: When: Charles Mitchell [address] [place] [phone] Business (1) Within 2 to 3 days [...] opioids can be used to help relieve ycserxcr-fh-leclwo pain and are often prescribed following a [...] be struggling with addiction, tell your health personal carer and ask for guidance or call [employer] at 5-788-132-HELP. v Source: [place] Department of Health and Human Services/Center for Disease Control & Prevention [facility] Medications Given: Medication Dose Route No medications found. Medication Information: Medications to Continue with No Changes Other Medications metformin (metformin 500 mg ER Tab) 250 Milligram By Mouth 2 times a day. Comment: Pharmacy Information: Thank you for choosing [facility] Patient Education Materials: Smoking Cessation Quitting smoking [...] and skin patches. Some may be available iptk-bnr-rxcewdm and others require a prescription. ? Antidepressant [...] Document Reviewed: 08/18/2012 ExitCare? Patient Information ?2014 MolecularMD. This information is not intended to replace [...] Document Reviewed: 12/13/2008 ExitCare? Patient Information ?2014 MolecularMD. This information is not intended to replace advice given to you by your health care provider. Make sure you discuss any questions you have with your health care provider. TERA Dorantes NICOLE B , have received the following patient education materials/instructions and have verbalized understanding: Patient Education Materials: Smoking Cessation; Chest Pain (Nonspecific) Follow-up Instructions: With: Address: When: [place] [address] [facility] () Within 2 to 3 days Comments: Return to ED if symptoms worsen Prescriptions: Patient Signature Date Clinician/Nurse Signature Date 01/11/19 18:42:28 Normal [facility] Progress Note-Nurseon 2018 Progress Note-Nurse Pt explained dischar ge instructions and voiced understanding. Pt sts she will follow up with her PCP and denies any furthe questions at this time. Normal [facility] Troponin 0 Hr.on 01-11-2019 Troponin I.cardiac [Mass/Vol] ng/mL Normal <=0.03 [facility] Comment on above: Result Comment: New Troponin Assay 10/05/13 [place] Cutoff value > or = 0.03 ng/mL in conjunction with clinical conditions of myocardial infarction. (www.escardio.org/guidelines) Performed By: #### 1 1133546, 3687115, 6841437, 1780639, 58224905, 2439251, 7536650, 8701416, 3359770, 35719290, 5229212 #### [facility] [address] [place] [address] eGFRon 01-11-2019 GFR/1.73 sq M predicted among blacks MDRD (S/P/Bld) [Vol rate/Area] mL/min/{1.73_m2} Normal >=59 [facility] Comment on above: Order Comment: Order added by Discern Expert. Result Comment: eGFR is race adjusted. AA=. Performed By: #### 1 7763561, 4548743, 5325535, 2233995, 16490245, 4503655, 3054099, 4693008, 3398537, 77601659, 0880613 #### [facility] [address] [place] [address] GFR/1.73 sq M predicted among non-blacks MDRD (S/P/Bld) [Vol rate/Area] mL/min/{1.73_m2} Normal >=59 [facility] Comment on above: Order Comment: Order added by Discern Expert. Result Comment: It Intern anthony kidney disease could be indicated at eGFR's of less than 60 mL/min/1.73m2. Kidney failure is indicated at less than 15 mL/min/1.73m2. Performed By: #### 1 7487449, 7175023, 3018914, 1170296, 14284674, 2395303, 2760008, 3087298, 3180755, 42643689, 2012941 #### [facility] [address] [place] [address] SPINE, LUMBOSACRAL CMPLT(TOOTIE DING)on 12-05-2018 SPINE, LUMBOSACRAL CMPLT(BENDING) Patient Name: JONES HALEY STUDY: SPINE, LUMBOSACRAL; CMPLT(BENDING); 12/05/2018 1:47 pm INDICATION: LUMBAR XR. COMPARISON: None. ACCESSION NUMBER(S): [id number] ORDERING CLINICIAN: JUAN LUIS RICHARDSON FINDINGS: No lumbar spine fracture. Scattered small endplate osteophytes. Vertebral body and disc space heights are are maintained. 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 No spondylolisthesis. No instability on flexion or extension. IMPRESSION: Degenerative changes of the lumbar spine without instability. Electronically signed by: EARNESTINE MANUEL MD [facility] XR chest 2V*on 09-17-2018 XR chest 2V* [facility] [place] [address] [place] [address] XRay Report Signed Patient: Jones Haley MR#: [id number] : 1980 Acct:[id number] Age/Sex: 37 / F ADM Date: 09/17/18 Loc: XDUCLY Room: Type: [facility] Attending Dr: Bettina COREAS Ordering Provider: [...] Simin Nelson M.D.09/17/2018 2:04 PM Dictation Location: [facility] Transcribed By: [facility] 09/17/18 1404 Dictated By: Simin Nelson MD 09/17/18 1403 Signed By: 09/17/18 1404 [facility] Coding Summary.on 09-15-2018 Coding Summary. 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 However, the narrative phrase printed from the coding software may appear abbreviated, or result in slightly different terminology. Coded By: Luz Judd Date Saved: 09/15/2018 07:15 am Normal [facility] Auto Diffon 09-14-2018 Basophils/100 WBC (Bld) 0.6 % Normal 0.0-2.0 [facility] Comment on above: Order Comment: Order Added by Discern Expert. Performed By: #### 1 7274198, 8572297, 9676209, 6234046, 21073802, 0903730, 0375692, 4571517, 3830891, 95522429, 7465977 #### [facility] [address] [place] [address] Basophils/Leukocytes Auto (Bld) [Pure # fraction] 0.1 E9/L Normal 0.0-0.2 [facility] Comment on above: Order Comment: Order Added by Discern Expert. Performed By: #### 1 6507583, 0055655, 4656950, 2949088, 39283089, 2939702, 8790518, 8731282, 0339322, 55897314, 0984076 #### [facility] [address] [place] [address] Eosinophils/100 WBC (Bld) 2.2 % Normal 0.0-8.0 [facility] Comment on above: Order Comment: Order Added by Discern Expert. Performed By: #### 1 3874322, 7462896, 3087884, 8101962, 03295537, 5705857, 5534924, 9424466, 6168766, 18372390, 3440532 #### [facility] [address] [place] [address] Eosinophils/Leukocyt es Auto (Bld) [Pure # fraction] 0.2 E9/L Normal 0.0-0.5 [facility] Comment on above: Order Comment: Order Added by Discern Expert. Performed By: #### 1 0603288, 4570283, 4993334, 5787082, 49373636, 1718694, 2420979, 9862185, 9197558, 02621100, 5531455 #### [facility] [address] [place] [address] Lymphocytes/100 WBC (Bld) 30.6 % Normal 14.0-50.0 [facility] Comment on above: Order Comment: Order Added by Discern Expert. Performed By: #### 1 9420435, 3363268, 5958978, 4621113, 75161466, 9586890, 5001233, 8183276, 8263876, 27779737, 2620277 #### [facility] [address] [place] [address] Lymphocytes/Leukocyt es Auto (Bld) [Pure # fraction] 3.0 E9/L Normal 1.0-4.0 [facility] Comment on above: Order Comment: Order Added by Discern Expert. Performed By: #### 1 0534409, 6604543, 8442407, 2580659, 35604826, 2241794, 5220861, 3831347, 9846658, 52916481, 6723406 #### [facility] [address] [place] [address] Monocytes/100 WBC (Bld) 7.2 % Normal 4.0-14.0 [facility] Comment on above: Order Comment: Order Added by Discern Expert. Performed By: #### 1 2709764, 3558772, 7524953, 8391684, 98388259, 3655032, 7909653, 7335002, 3970359, 14465287, 4764810 #### [facility] [address] [place] [address] Monocytes/Leukocytes Auto (Bld) [Pure # fraction] 0.7 E9/L Normal 0.2-1.0 [facility] Comment on above: Order Comment: Order Added by Discern Expert. Performed By: #### 1 8749528, 8670486, 7279903, 2992957, 14394658, 5819605, 7988049, 8458939, 6557175, 02796741, 2695924 #### [facility] [address] [place] [address] Neutrophils/100 WBC (Bld) 59.4 % Normal 36.0-75.0 [facility] Comment on above: Order Comment: Order Added by Discern Expert. Performed By: #### 1 6959212, 4967966, 3372593, 5781690, 72201438, 6034452, 0214636, 1158380, 5589659, 52527481, 3355096 #### [facility] [address] [place] [address] Neutrophils/Leukocyt es Auto (Bld) [Pure # fraction] 5.9 E9/L Normal 2.0-7.5 [facility] Comment on above: Order Comment: Order Added by Discern Expert. Performed By: #### 1 8938681, 2385646, 5519885, 5582574, 45752099, 0324227, 2166065, 2709857, 0182821, 74775270, 8291854 #### [facility] [address] [place] [address] [facility] 09-14-2018 Creatinine [Mass/Vol] 0.6 mg/dL Normal 0.5-1.3 [facility] Comment on above: Performed By: #### 1 4208966, 9930699, 2923525, 2644077, 62650471, 3901725, 8008647, 0742008, 1380225, 45630515, 1096264 #### [facility] [address] [place] [address] Urea nitrogen [Mass/Vol] 15 mg/dL Normal 5-21 [facility] Comment on above: Performed By: #### 1 3347137, 1235605, 7928854, 7793453, 62692796, 1877629, 8809662, 0880582, 7295299, 05802000, 2476768 #### [facility] [address] [place] [address] Urea nitrogen/Creatinine [Mass ratio] 25 No Units High 10-20 [facility] Comment on above: Performed By: #### 1 7172377, 3195875, 5100898, 9807181, 55711553, 8326653, 7205539, 1715417, 6522177, 97648063, 4931111 #### [facility] [address] [place] [address] Anion gap [Moles/Vol] 13 mmol/L Normal 6-16 [facility] Comment on above: Performed By: #### 1 3523067, 5075051, 8187807, 3912615, 96132198, 4341515, 8571127, 2039244, 3070965, 64634482, 9423923 #### [facility] [address] [place] [address] Calcium [Mass/Vol] 9.5 mg/dL Normal 8.9-11.1 [facility] Comment on above: Performed By: #### 1 8340235, 9309905, 5284698, 8303054, 07956764, 1939541, 4210187, 1246153, 4113505, 56851381, 0752462 #### [facility] [address] [place] [address] Chloride [Moles/Vol] 103 mmol/L Normal 101-111 [facility] Comment on above: Performed By: #### 1 5069987, 1369723, 3287433, 6641474, 84683359, 1854452, 3259079, 0657006, 1826883, 47938855, 3563231 #### [facility] [address] [place] [address] CO2 [Moles/Vol] 24 mmol/L Normal 21-31 [facility] Comment on above: Performed By: #### 1 1228069, 4916905, 9128945, 7988052, 07206375, 6787929, 3821957, 4892693, 5470112, 47797083, 8898365 #### [facility] [address] [place] [address] Glucose [Mass/Vol] 102 mg/dL Normal 55-199 [facility] Comment on above: Result Comment: If t his glucose result represents a fasting glucose, interpretation should refer to the following reference range: 55-99 mg/dL Performed By: #### 1 7379106, 0148418, 9202824, 6072857, 36160185, 5951176, 8546507, 2787782, 0037595, 64722334, 1016968 #### [facility] [address] [place] [address] Potassium [Moles/Vol] 3.6 mmol/L Normal 3.5-5.3 [facility] Comment on above: Performed By: #### 1 3363449, 5979763, 2654225, 2358450, 90981875, 9574837, 2823508, 5621833, 1188333, 56221913, 0692721 #### [facility] [address] [place] [address] Sodium [Moles/Vol] 136 mmol/L Normal 135-145 [facility] Comment on above: Performed By: #### 1 3427716, 4312635, 5225463, 6012892, 67940620, 2996613, 7984020, 6728599, 5416517, 24297080, 3953197 #### [facility] [address] [place] [address] CBC w/ Auto Diffon 9 Erythrocyte distribution width (RBC) [Ratio] 14.2 % Normal 10.9-14.2 [facility] Comment on above: Performed By: #### 1 8531414, 9443483, 8654397, 9422023, 52457099, 4076050, 7219329, 1568191, 9137665, 31195198, 7280919 #### [facility] [address] [place] [address] Hematocrit (Bld) [Volume fraction] 39.4 % Normal 34.0-46.0 [facility] Comment on above: Performed By: #### 1 4889323, 8811687, 9582527, 5453849, 35784766, 2683162, 7793728, 0540439, 4721812, 37786717, 2353062 #### [facility] [address] [place] [address] Hemoglobin (Bld) [Mass/Vol] 13.3 g/dL Normal 12.0-16.0 [facility] Comment on above: Performed By: #### 1 3528274, 6516128, 1620622, 9909652, 46768088, 9643078, 6783679, 5541001, 1358578, 70798409, 2823922 #### [facility] [address] [place] [address] MCH (RBC) [Entitic mass] 29.2 pg Normal 27.0-34.0 [facility] Comment on above: Performed By: #### 1 7617226, 0432488, 1855148, 4814546, 35394940, 1459291, 9413999, 4449106, 5611101, 48607035, 4778876 #### [facility] [address] [place] [address] MCHC (RBC) [Mass/Vol] 33.8 g/dL Normal 33.3-35.7 [facility] Comment on above: Performed By: #### 1 7771215, 4291228, 6625323, 7500949, 54261032, 5448087, 5760969, 9265068, 5133554, 44360565, 3236379 #### [facility] [address] [place] [address] MCV (RBC) [Entitic vol] 86.6 fL Normal 80.0-100.0 [facility] Comment on above: Performed By: #### 1 7019085, 7602730, 5210839, 3700882, 06656950, 6229894, 3616993, 9658760, 7367061, 98005938, 5511385 #### [facility] [address] [place] [address] Platelet mean volume (Bld) [Entitic vol] 8.8 fL Normal 6.4-10.8 [facility] Comment on above: Performed By: #### 1 6584312, 5716812, 7506305, 9154429, 95948278, 4687409, 9349496, 8177524, 6504822, 26516801, 7972176 #### [facility] [address] [place] [address] Platelets (Bld) [#/Vol] 307.0 E9/L Normal 150.0-500.0 [facility] Comment on above: Performed By: #### 1 1805791, 6072394, 7342626, 3395988, 43808475, 0649695, 9440427, 5059082, 3346804, 06628696, 5772345 #### [facility] [address] [place] [address] RBC (Bld) [#/Vol] 4.6 E12/L Normal 4.3-5.9 [facility] Comment on above: Performed By: #### 1 8418303, 2600688, 3304167, 1970826, 02845982, 5150467, 6918258, 1013008, 2202034, 67558059, 4225945 #### [facility] [address] [place] [address] WBC corrected for nucl RBC Auto (Bld) [#/Vol] 9.9 E9/L Normal 4.0-11.0 [facility] Comment on above: Performed By: #### 1 0158261, 0624745, 8244798, 4055888, 84586008, 1724291, 3283399, 5733951, 8377435, 47329726, 6771335 #### [facility] [address] [place] [address] CKon 09-14-2018 CK [Catalytic activity/Vol] 53 Int._Unit/L Normal 14-261 [facility] Comment on above: Performed By: #### 1 6556060, 9272877, 6981416, 8865887, 75921953, 1764956, 2115997, 8668696, 4906599, 37405672, 7779221 #### [facility] [address] [place] [address] ED Clinical Summaryon 2018 ED Clinical Summary (Inserted Image. Melissa ble to display) [address] [address] ED Clinical Summary Person Information Name: JONES HALEY [facility] Age: 37 Years : 1980 12:00 AM Sex: Female Language: South Sudanese PCP: Charles Mitchell DO Marital Status: Single Phone: [phone] Visit Id: Visit Reason: Anxiety; Paraesthesia; NUMBNESS [...] 09/14/2018 12:17 AM 09/14/2018 12:17 AM ADDRESS: [address] [place] [address] [place] [id number] PHYS DOC NOTES: MEDICAL INFORMATION: Prescriptions Given: Prescription Display gabapentin (gabapentin 100 mg Cap) 100 mg = 1 cap(s), Oral, Daily, X 7 day(s), # 7 cap(s), Refills(s) 0, Pharmacy: [facility] gabapentin (gabapentin 100 mg Cap) 100 mg = 1 cap(s), Oral, Daily, X 7 day(s), # 7 cap(s), Refills(s) 0, Pharmacy: [facility]/pharmacy #6177 magnesium oxide (magnesium oxide 400 mg Tab) 400 mg = 1 tab(s), Oral, Daily, X 7 day(s), # 7 tab(s), Refills(s) 0, Pharmacy: [facility] magnesium oxide (magnesium oxide 400 mg Tab) 400 mg = 1 tab(s), Oral, Daily, X 7 day(s), # 7 tab(s), Refills(s) 0, Pharmacy: [facility]/pharmacy #6177 Home Meds Display metformin (metformin 500 mg ER Tab) 250 mg, Oral, BID, Refills(s) 0 PATIENT EDUCATION INFORMATION: Instructions: Paresthesia, Froc-fr-Ohqy; Restless Legs Syndrome Follow up: With: Address: When: Sayda Kelley [address] [address] Business (1) Within 1 to 2 days Comments: neurologist you may also follow up with him With: Address: When: [address] [address] Business (1) Within 1 to 2 days Comments: Return to ED if symptoms worsen DIAGNOSIS: 1:Restless leg syndrome Normal [facility] ED Note-Nursingon 09-14-2018 ED Note-Nursing Pt up to RR, gait steady. Normal [facility] ED Note-Nursing Aware of need for ur ine specimen, denies urge at present, states will notify when able to produce sample, will monitor. Normal [facility] ED Note-Physicianon 09-15-19 19 ED Note-Physician Basic [...] day(s), # 7 cap(s), Refills(s) 0, Pharmacy: [facility]/pharmacy #6177 magnesium oxide, 400 mg = 1 tab(s), Oral, Daily, X 7 day(s), # 7 tab(s), Refills(s) 0, Pharmacy: [facility]/pharmacy #6177 Sodium Chloride 0.9% intravenous solution [...] Sayda Kelley Within 1 to 2 days [facility] [place] [address]- Business (1) Additional Instructions: neurologist you may also follow up with him Charles Mitchell Within 1 to [address] [place] [address]- Business (1) Additional Instructions: Return to ED if symptoms worsen Patient Education Paresthesia, Dajt-eu-Hgxb Restless Legs Syndrome Problem List/Past Medical History [...] Lymph Auto: 30.6 % (09/13/18 23:03:00 EDT) [place] Auto: 7.2 % (09/13/18 23:03:00 EDT) Eos Auto: 2.2 % (09/13/18 23:03:00 EDT) Basophil Auto: 0.6 % (09/13/18 23:03:00 EDT) Neutro Absolute: 5.9 E9/L (09/13/18 23:03:00 EDT) Lymph Absolute: 3 E9/L (09/13/18 23:03:00 EDT) [place] Absolute: 0.7 E9/L (09/13/18 23:03:00 EDT) Eos [...] Diagnostic Results No qualifying data available. Normal [facility] Comment on above: Result Comment: Elec tronically [...] Document Reviewed: 01/29/2012 ExitCare? Patient Information ?2014 MolecularMD. This information is not intended to replace [...] ? Drawing. ? Crawling. ? Worming. ? [place]. ? Tingling. ? Pins and needles. ? [...] Document Reviewed: 08/06/2011 ExitCare? Patient Information ?2014 [employer] [facility]. This information is not intended to replace advice given to you by your health care provider. Make sure you discuss any questions you have with your health care provider. Normal [facility] ED Patient Summaryon 019 ED Patient Summary (Inserted Image. Mleissa ble to display) [address] [address] Patient Discharge Instructions Person Information Name: JONES HALEY Age: 37 Years Arrival Date: 09/13/2018 10:16 PM Discharge Diagnosis: 1:Restless leg syndrome Primary Care Physician: Charles Mitchell DO Provider Information Primary Provider: Génesis Lozoya DO [employer] Machinist:None The exam and treatment you received in the Emergency Department were for an urgent problem and are not intended as complete care. It is important that you follow up with a doctor, nurse practitioner, or physician?s assistant editor for ongoing care. If your symptoms become worse or you do not improve as expected and you are unable to reach your usual health care provider, you should return to the Emergency Department. We are available 24 hours a day. JONES HALEY has been given the following list of patient education materials, prescriptions and follow-up instructions: Follow-up Instructions: With: Address: When: Sayda Warren [address] [address] Business (1) Within 1 to 2 days Comments: neurologist you may also follow up with him With: Address: When: Charles Mitchell [address] [place] [address] Business (1) Within 1 to 2 days Comments: Return to ED if symptoms worsen In the event that this physician does not participate in your insurance network, please consult with your insurance company to find a nearby participating provider. Patient Education Materials: Paresthesia, Pmoh-zf-Mnxw; Restless Legs Syndrome A MESSAGE TO ALL PATIENTS REGARDING OPIOIDS PRESCRIPTION OPIOIDS: WHAT YOU NEED TO KNOW Prescription opioids can be used to help relieve ualcuxoo-lh-xvrdnn pain and are often prescribed following a [...] be struggling with addiction, tell your health personal carer and ask for guidance or call [facility]?S National Helpline at 1-053-096-SUMH. r Source: US Department of Health and Human Services/Center for Disease Control & Prevention [facility] Medications Given: Medication Dose Route Sodium Chloride 0.9% intravenous solution 1000.00 mL Initial Volume 1000.00 mL/hr IV Piggyback Left Mid Forearm Medication Information: New Medications [facility], [address] [place], [place] [id number], [phone] gabapentin (gabapentin 100 mg Cap) 1 Capsules By Mouth every day for 7 Days. Refills: 0. magnesium oxide (magnesium oxide 400 mg Tab) 1 Tabs By Mouth every day for 7 Days. Refills: 0. [facility], [address] [place], [place] [id number], [phone] gabapentin (gabapentin 100 mg Cap) 1 Capsules By Mouth every day for 7 Days. Refills: 0. magnesium oxide (magnesium oxide 400 mg Tab) 1 Tabs By Mouth every day for 7 Days. Refills: 0. Medications to Continue with No Changes Other Medications metformin (metformin 500 mg ER Tab) 250 Milligram By Mouth 2 times a day. Comment: Pharmacy Information: Thank you for choosing [facility] Patient Education Materials: Paresthesia Paresthesia is a [...] Document Reviewed: 01/29/2012 ExitCare? Patient Information ?2015 MolecularMD. This information is not intended to replace [...] ? Drawing. ? Crawling. ? Worming. ? Afton. ? Tingling. ? Pins and needles. ? [...] Document Reviewed: 08/06/2011 ExitCare? Patient Information ?2015 MolecularMD. This information is not intended to replace advice given to you by your health care provider. Make sure you discuss any questions you have with your health care provider. TERA Dorantes NICOLE B , have received the following patient education materials/instructions and have verbalized understanding: Patient Education Materials: Paresthesia, Udrl-ku-Pgng; Restless Legs Syndrome Follow-up Instructions: With: Address: When: Sayda Kelley [address] [address] [employer] (1) Within 1 to 2 days Comments: neurologist you may also follow up with him With: Address: When: [address] [address] [employer] (1) Within 1 to 2 days Comments: Return to ED if symptoms worsen Prescriptions: [gabapentin (gabapentin 100 mg Cap)] [gabapentin (gabapentin 100 mg Cap)] [magnesium oxide (magnesium oxide 400 mg Tab)] [magnesium oxide (magnesium oxide 400 mg Tab)] Patient Signature Date Clinician/Nurse Signature Date 09/14/18 00:21:38 Normal [facility] Hep Func Panelon 09-14-2018 Bilirubin.direct [Mass/Vol] UTC Abnormal 0.1-0.9 [facility] Comment on above: Result Comment: Resu lt verified by Discern Rule. Performed result UTC (Unable to Calculate) was sent as an Alpha code due the inability to calculate a valid numeric value. Performed By: #### 1 6757242, 9325188, 4980598, 3080031, 43967470, 1012662, 9619048, 3269314, 8126538, 19917183, 5551469 #### [facility] [address] [place] [address] Albumin [Mass/Vol] 1.1 g/dL Normal 1.1-2.2 [facility] Comment on above: Performed By: #### 1 4727458, 7739175, 6027043, 9563860, 72020565, 9250677, 7618300, 1842741, 4220323, 58800716, 6326835 #### [facility] [address] [place] [address] Albumin [Mass/Vol] 4.1 g/dL Normal 3.3-5.0 [facility] Comment on above: Performed By: #### 1 3212384, 9212751, 9470307, 6251174, 18962749, 8110197, 6319111, 2815485, 6141527, 99733830, 4420466 #### [facility] [address] [place] [address] ALP [Catalytic activity/Vol] 69 Int._Unit/L Normal 21-98 [facility] Comment on above: Performed By: #### 1 6238859, 3105108, 2486713, 3254509, 71090086, 3786255, 8150457, 9126117, 4426313, 84170036, 4936350 #### [facility] [address] [place] [address] ALT No additional P-5'-P [Catalytic activity/Vol] 27 Int._Unit/L Normal 6-46 [facility] Comment on above: Performed By: #### 1 0658594, 4587730, 9794203, 2962948, 29972223, 8858967, 8574983, 0633222, 7890483, 18799986, 0881612 #### [facility] [address] [place] [address] AST [Catalytic activity/Vol] 16 Int._Unit/L Normal 5-43 [facility] Comment on above: Performed By: #### 1 9420788, 4030714, 1119093, 1919743, 56995359, 8776166, 0095906, 1646104, 9563909, 01523226, 2170177 #### [facility] [address] [place] [address] Bilirubin [Mass/Vol] 0.5 mg/dL Normal 0.0-1.1 [facility] Comment on above: Performed By: #### 1 [id number], 1765595, 4738712, 1654444, 12096363, 7704565, 4356840, 2406918, 0238733, 03844963, 9459174 #### [facility] [address] [place] [address] Bilirubin.direct [Mass/Vol] mg/dL Normal 0.1-0.4 [facility] Comment on above: Performed By: #### 1 1983685, 6994148, 2048762, 4127680, 97346884, 6912502, 3013565, 5793434, 9421472, 80814522, 7855738 #### [facility] [address] [place] [address] Globulin (S) [Mass/Vol] 3.7 g/dL Normal 1.4-4.0 [facility] Comment on above: Performed By: #### 1 5918378, 2538215, 5509633, 1201635, 96794666, 6208680, 3511162, 0887815, 6698930, 16504424, 4546398 #### [facility] [address] [place] [address] Protein [Mass/Vol] 7.8 g/dL Normal 6.0-7.8 [facility] Comment on above: Performed By: #### 1 2531278, 6312755, 1229415, 6604232, 05407689, 2462513, 0436465, 7587894, 8889766, 55017274, 3668519 #### [facility] [address] [place] [address] Magnesiumon 09-14-2018 Magnesium [Mass/Vol] 1.9 mg/dL Normal 1.3-2.4 [facility] Comment on above: Performed By: #### 1 8326838, 5185613, 1430081, 7952079, 79322638, 0413682, 6194412, 8561971, 9936356, 95713848, 1137980 #### [facility] [address] [place] [address] Myoglobinon 09-14-2018 Myoglobin [Mass/Vol] 9 ng/mL Normal <=69 [facility] Comment on above: Performed By: #### 1 6368184, 8028575, 9996195, 4111118, 06732231, 8824780, 4591497, 1597596, 9700750, 81922533, 9785683 #### [facility] [address] [place] [address] PT & PTTon 09-14-2018 aPTT Coag (PPP) [Time] 34.5 second(s) Normal 25.1-36.5 [facility] Comment on above: Result Comment: Hepa rin therapeutic range (represented by Anti-Factor Xa activity of 0.2 - 0.4 U/mL) corresponds to PTT of 56.6 - 109.0 sec. Performed By: #### 1 8712802, 2811584, 3023601, 7772856, 51027209, 2156969, 7026488, 9231343, 5644373, 91234597, 0046584 #### [facility] [address] [place] [address] INR Coag (PPP) [Relative time] 1.0 {INR} [facility] Comment on above: Result Comment: INR results are specifically intended to assess patients stabilized on long-term Anticoagulation therapy suggested INR?s ?Less Intensive Anticoagulation? 2.0 ? 3.0 Conventional Range 3.0 ? 4.5 Performed By: #### 1 3745575, 6406016, 3410074, 6417070, 21413689, 8842751, 5140803, 1583995, 7613160, 94204157, 2654583 #### [facility] [address] [place] [address] PT Coag (PPP) [Time] 11.2 second(s) Normal 10.2-12.9 [facility] Comment on above: Performed By: #### 1 1550802, 4244416, 1859846, 4103206, 47379247, 3111069, 6580553, 3396449, 5252158, 39602703, 3119025 #### [facility] [address] [place] [address] Phosphoruson 09-14-2018 Phosphate [Mass/Vol] 3.8 mg/dL Normal 1.9-4.6 [facility] Comment on above: Performed By: #### 1 3819904, 9989466, 6023706, 9316738, 76485256, 1613071, 4443278, 8922142, 2729550, 80711996, 8102935 #### [facility] [address] [place] [address] Troponin 0 Hr.on 09-14-2018 Troponin I.cardiac [Mass/Vol] ng/mL Normal <=0.03 [facility] Comment on above: Result Comment: New Troponin Assay 10/05/13 [place] Cutoff value > or = 0.03 ng/mL in conjunction with clinical conditions of myocardial infarction. ([email or web address]) Performed By: #### 1 9663400, 6897768, 9587445, 1714856, 19775131, 8988820, 5068065, 7588325, 4453704, 02652859, 4565707 #### [facility] [address] [place] [address] UA With Cult Reflexon 2018 Bacteria LM Ql (Urine sed) TRACE Normal Trace [facility] Comment on above: Performed By: #### 1 9743706, 8353416, 2508265, 0422403, 37782843, 4087313, 0490853, 8567304, 2815210, 88458379, 3195392 #### [facility] [address] [place] [address] Bilirubin Ql (U) Negative Normal Negative [facility] Comment on above: Performed By: #### 1 1436475, 9528394, 4648714, 3244436, 22210543, 6299143, 0127015, 5190993, 6718582, 09837573, 1485973 #### [facility] [address] [place] [address] Clarity (U) CLEAR Normal Clear [facility] Comment on above: Performed By: #### 1 5163573, 9197419, 5069687, 1579668, 73124285, 2964214, 3895148, 0799528, 8124836, 10272369, 9367543 #### [facility] [address] [place] [address] Color (U) YELLOW Normal Yellow [facility] Comment on above: Performed By: #### 1 5816109, 2803696, 9533697, 1183230, 78819653, 6625871, 3657053, 3872415, 2380491, 44110381, 9695326 #### [facility] [address] [place] [address] Epithelial cells.squamous LM.HPF (Urine sed) [#/Area] 0-2 Normal 0-2 [facility] Comment on above: Performed By: #### 1 8824759, 1688696, 3567974, 8310833, 70526083, 3920599, 7096263, 3791098, 5620474, 17352766, 1439301 #### [facility] [address] [place] [address] Glucose Test strip (U) [Mass/Vol] Negative Normal Negative [facility] Comment on above: Performed By: #### 1 4705965, 2534265, 1485568, 6666417, 69571279, 3991455, 3639886, 9016964, 0600797, 21231213, 9041742 #### [facility] [address] [place] [address] Hemoglobin Ql (U) Negative Normal Negative [facility] Comment on above: Performed By: #### 1 0835732, 2056413, 6682586, 5047263, 30190306, 6167483, 4440973, 6412818, 9728470, 72044980, 9905431 #### [facility] [address] [place] [address] Ketones (U) [Mass/Vol] Negative Normal Negative [facility] Comment on above: Performed By: #### 1 1004781, 2318634, 5803148, 2727840, 54227818, 1421657, 9178813, 6428912, 1495504, 06055420, 4236777 #### [facility] [address] [place] [address] Maize.plasma/Lithi um.RBC (Bld) [Mass ratio] 0-3 Normal 0-3 [facility] Comment on above: Performed By: #### 1 4054998, 0955814, 9497519, 9782292, 02540318, 8222686, 5183195, 7777879, 9668086, 31082695, 1212075 #### [facility] [address] [place] [address] Mucus Ql (Urine sed) TRACE Normal Fish [facility] Comment on above: Performed By: #### 1 4347056, 2622054, 0559452, 9272947, 90247730, 2177556, 2107781, 6465793, 8325285, 88627796, 2946977 #### [facility] [address] [place] [address] Nitrite Ql (U) Negative Normal Negative [facility] Comment on above: Performed By: #### 1 1054777, 6494666, 0430399, 1741962, 31559650, 3192398, 0085213, 4488681, 5187091, 24728313, 3421189 #### [facility] [address] [place] [address] pH (U) 6.0 [pH] 5.0-9.0 [facility] Comment on above: Performed By: #### 1 3598788, 2447580, 1838791, 2360708, 64880443, 0928893, 2792222, 3422688, 6479134, 75430814, 3671355 #### [facility] [address] [place] [address] Protein (U) [Mass/Vol] Negative Normal Negative [facility] Comment on above: Performed By: #### 1 6626416, 6704507, 0672758, 5063570, 59201655, 5440897, 6378784, 9616160, 2952521, 62938300, 9984940 #### [facility] [address] [place] [address] Specific gravity (U) [Rel density] 1.010 1.005-1.030 [facility] Comment on above: Performed By: #### 1 7842687, 8605119, 8421397, 7378922, 74056180, 9041789, 1286115, 7154103, 6423199, 94912028, 6568792 #### [facility] [address] [place] [address] UA Spec Desc Clean Catch Normal [facility] Comment on above: Performed By: #### 1 6681472, 2464287, 0772670, 4399808, 82885924, 4439886, 8711557, 3914606, 9471917, 67277537, 3018017 #### [facility] [address] [place] [address] Urobilinogen Qn (U) 0.2 {Carmella'U}/dL Normal 0.0-1.0 [facility] Comment on above: Performed By: #### 1 9821282, 9536024, 6388896, 8295431, 67509838, 8841984, 1231922, 6357803, 8224740, 00274835, 4821215 #### [facility] [address] [place] [address] WBC Auto Ql (U) Negative Normal Negative [facility] Comment on above: Performed By: #### 1 1939056, 7806531, 5695679, 4658826, 28168303, 2527984, 2338967, 4129519, 6104257, 56453265, 0649204 #### [facility] [address] [place] [address] WBC LM.HPF (Urine sed) [#/Area] 0-5 Normal 0-5 [facility] Comment on above: Performed By: #### 1 0683321, 9700442, 2487385, 2996565, 03822068, 1059898, 0093257, 8500656, 8908590, 93783038, 6552526 #### [facility] [address] [place] [address] XR Chest Single Viewon 09-14 XR Chest [...] M.D. Transcribed by: minoo Technologist: AP Normal [facility] XR FOOT LEFT (MIN 3 VIEWS)on 09-14-2018 XR FOOT LEFT (MIN 3 VIEWS) Radiology exam is complete. No Radiologist dictation. Please follow up with ordering provider. Final result Normal [facility] XR FOOT RIGHT (MIN 3 VIEWS)o n 09-14-2018 XR FOOT RIGHT (MIN 3 VIEWS) Radiology exam is complete. No Radiologist dictation. Please follow up with ordering provider. Final result Normal [facility] eGFRon 09-14-2018 GFR/1.73 sq M predicted among blacks MDRD (S/P/Bld) [Vol rate/Area] mL/min/{1.73_m2} Normal >=59 [facility] Comment on above: Order Comment: Order added by Discern Expert. Result Comment: eGFR is race adjusted. AA=. Performed By: #### 1 4267553, 6068581, 0725360, 5333692, 50768086, 2890265, 1990380, 2878443, 5259953, 14633032, 1052128 #### [facility] [address] [place] [address] GFR/1.73 sq M predicted among non-blacks MDRD (S/P/Bld) [Vol rate/Area] mL/min/{1.73_m2} Normal >=59 [facility] Comment on above: Order Comment: Order added by Discern Expert. Result Comment: It Intern anthony kidney disease could be indicated at eGFR's of less than 60 mL/min/1.73m2. Kidney failure is indicated at less than 15 mL/min/1.73m2. Performed By: #### 1 1638986, 9675208, 2735180, 1600588, 65772809, 1870189, 1496915, 2587564, 5209779, 81148940, 6529198 #### [facility] [address] [place] [address] Vital Signs Date Time Vital Sign Value Performing Clinician Facility 07-06-2023 14:48-0500 Body mass index (BMI) [Ratio] 41.81 kg/m2 Juan Luis Richardson MD Work Phone: [facility] 07-06-2023 14:48-0500 Body weight 119.3 kg Juan Luis Richardson MD Work Phone: [facility] 06-09-2023 08:45-0500 Body height 170.2 cm Michelle Britton 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 Work Phone: [facility] 06-09-2023 08:45-0500 Body mass index (BMI) [Ratio] 44.48 kg/m2 Michelle Britton 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 Work Phone: [facility] 06-09-2023 08:45-0500 Body weight 128.82 kg Michelle Mitali 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 Work Phone: [facility] 06-09-2023 08:45-0500 Diastolic blood pressure 82 mm[Hg] Michelle Mitali 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 Work Phone: [facility] 06-09-2023 08:45-0500 Heart rate 80 /min Michelle Britton 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 Work Phone: [facility] 06-09-2023 08:45-0500 Systolic blood pressure 146 mm[Hg] Michelle Mitali 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 Work Phone: [facility] 05-26-2023 17:17-0500 Body weight 123.83 kg Christie Phan MD Work Phone: [facility] 04-26-2023 14:42-0500 Body weight 125.19 kg Christie Phan MD Work Phone: [facility] 03-19-2023 11:16-0400 Body temperature 97.7 [degF] Ma Sand Work Phone: [facility] 03-19-2023 11:16-0400 Diastolic blood pressure 54 mm[Hg] Ma Sand Work Phone: [facility] 03-19-2023 11:16-0400 Heart rate 75 /min Ma Sand Work Phone: [facility] 03-19-2023 11:16-0400 Respiratory rate 16 /min Ma Sand Work Phone: [facility] 03-19-2023 11:16-0400 SaO2% (BldA) [Mass fraction] 96 % Ma Sand Work Phone: [facility] 03-19-2023 11:16-0400 Systolic blood pressure 111 mm[Hg] Ma Sand Work Phone: [facility] 02-19-2023 10:56-0400 Body height 170.2 cm Jose Najera MD Work Phone: [facility] 02-19-2023 10:56-0400 Body temperature 97.39 [degF] Jose Najera MD Work Phone: [facility] 02-19-2023 10:56-0400 Body weight 120.75 kg Jose Najera MD Work Phone: [facility] 02-19-2023 10:56-0400 Diastolic blood pressure 69 mm[Hg] Jose Najera MD Work Phone: [facility] 02-19-2023 10:56-0400 Heart rate 110 /min Jose Najera MD Work Phone: [facility] 02-19-2023 10:56-0400 Respiratory rate 16 /min Jose Najera MD Work Phone: [facility] 02-19-2023 10:56-0400 SaO2% (BldA) [Mass fraction] 96 % Jose Najera MD Work Phone: [facility] 02-19-2023 10:56-0400 Systolic blood pressure 132 mm[Hg] Jose Najera MD Work Phone: [facility] 01-22-2023 12:09-0400 Diastolic blood pressure 76 mm[Hg] Ma Sand Work Phone: [facility] 01-22-2023 12:09-0400 Systolic blood pressure 107 mm[Hg] Ma Sand Work Phone: [facility] 01-22-2023 12:08-0400 Body temperature 97.59 [degF] Ma Sand Work Phone: [facility] 01-22-2023 12:08-0400 Heart rate 102 /min Ma Sand Work Phone: [facility] 01-22-2023 12:08-0400 Respiratory rate 16 /min Ma Sand Work Phone: [facility] 01-22-2023 12:08-0400 SaO2% (BldA) [Mass fraction] 97 % Ma Sand Work Phone: [facility] 11-19-2022 11:00-0400 Body temperature 97.2 [degF] Ma Sand Work Phone: [facility] 11-19-2022 11:00-0400 Diastolic blood pressure 54 mm[Hg] Ma Sand Work Phone: [facility] 11-19-2022 11:00-0400 Heart rate 98 /min Ma Sand Work Phone: [facility] 11-19-2022 11:00-0400 Respiratory rate 16 /min Ma Sand Work Phone: [facility] 11-19-2022 11:00-0400 SaO2% (BldA) [Mass fraction] 98 % Ma Sand Work Phone: [facility] 11-19-2022 11:00-0400 Systolic blood pressure 126 mm[Hg] Ma Sand Work Phone: [facility] 10-22-2022 11:51-0400 Body height 170.2 cm Ma Sand Work Phone: [facility] 10-22-2022 11:51-0400 Body weight 120.66 kg Ma Sand Work Phone: [facility] 10-22-2022 11:51-0400 Respiratory rate 16 /min Ma Sand Work Phone: [facility] 10-22-2022 10:50-0400 Body height 170.2 cm Jose Najera MD Work Phone: [facility] 10-22-2022 10:50-0400 Body temperature 97 [degF] Jose Najera MD Work Phone: [facility] 10-22-2022 10:50-0400 Body weight 120.75 kg Jose Najera MD Work Phone: [facility] 10-22-2022 10:50-0400 Diastolic blood pressure 55 mm[Hg] Jose Najera MD Work Phone: [facility] 10-22-2022 10:50-0400 Heart rate 78 /min Jose Najera MD Work Phone: [facility] 10-22-2022 10:50-0400 Respiratory rate 16 /min Jose Najera MD Work Phone: [facility] 10-22-2022 10:50-0400 SaO2% (BldA) [Mass fraction] 98 % Jose Najera MD Work Phone: [facility] 10-22-2022 10:50-0400 Systolic blood pressure 132 mm[Hg] Jose Najera MD Work Phone: [facility] 09-24-2022 10:22-0400 Body height 170.2 cm Ma Sand Work Phone: [facility] 09-24-2022 10:22-0400 Body temperature 97 [degF] Ma Sand Work Phone: [facility] 09-24-2022 10:22-0400 Body weight 120.2 kg Ma Sand Work Phone: [facility] 09-24-2022 10:22-0400 Diastolic blood pressure 81 mm[Hg] Ma Sand Work Phone: [facility] 09-24-2022 10:22-0400 Heart rate 77 /min Ma Sand Work Phone: [facility] 09-24-2022 10:22-0400 Respiratory rate 16 /min Cele Sand Work Phone: [facility] 09-24-2022 10:22-0400 SaO2% (BldA) [Mass fraction] 97 % Cele Sand Work Phone: [facility] 09-24-2022 10:22-0400 Systolic blood pressure 116 mm[Hg] Cele Sand Work Phone: [facility] 09-07-2022 14:03-0400 Body weight 120.2 kg Christie Phan MD Work Phone: [facility] 08-27-2022 09:45-0400 Body height 170.2 cm Wilmer Driver STOCK OR DELIVERY CLERK.SUBSTATION OPERATOR AUTOMATIC Work Phone: [facility] 08-27-2022 09:45-0400 Body temperature 97.7 [degF] Wilmer Driver STOCK OR DELIVERY CLERK.SUBSTATION OPERATOR AUTOMATIC Work Phone: [facility] 08-27-2022 09:45-0400 Body weight 118.66 kg Wilmer Driver APRN.SUBSTATION OPERATOR AUTOMATIC Work Phone: [facility] 08-27-2022 09:45-0400 Diastolic blood pressure 55 mm[Hg] Wilmer Driver STOCK OR DELIVERY CLERK.SUBSTATION OPERATOR AUTOMATIC Work Phone: [facility] 08-27-2022 09:45-0400 Heart rate 63 /min Wilmer Driver APRN.SUBSTATION OPERATOR AUTOMATIC Work Phone: [facility] 08-27-2022 09:45-0400 Respiratory rate 16 /min Wilmer Driver APRN.SUBSTATION OPERATOR AUTOMATIC Work Phone: [facility] 08-27-2022 09:45-0400 SaO2% (BldA) [Mass fraction] 96 % Wilmer Driver APRN.SUBSTATION OPERATOR AUTOMATIC Work Phone: [facility] 08-27-2022 09:45-0400 Systolic blood pressure 117 mm[Hg] Wilmer Driver STOCK OR DELIVERY CLERK.SUBSTATION OPERATOR AUTOMATIC Work Phone: [facility] 05-20-2022 13:28-0500 Body height 170.2 cm Jose Najera MD Work Phone: [facility] 05-20-2022 13:28-0500 Body temperature 97.7 [degF] Jose Najera MD Work Phone: [facility] 05-20-2022 13:28-0500 Diastolic blood pressure 70 mm[Hg] Jose Najera MD Work Phone: [facility] 05-20-2022 13:28-0500 Heart rate 93 /min Jose Najera MD Work Phone: [facility] 05-20-2022 13:28-0500 Respiratory rate 16 /min Jose Najera MD Work Phone: [facility] 05-20-2022 13:28-0500 SaO2% (BldA) [Mass fraction] 97 % Jose Najera MD Work Phone: [facility] 05-20-2022 13:28-0500 Systolic blood pressure 127 mm[Hg] Jose Najera MD Work Phone: [facility] 03-18-2022 10:49-0400 Body height 170.2 cm Jose Najera MD Work Phone: [facility] 03-18-2022 10:49-0400 Body temperature 97.81 [degF] Jose Najera MD Work Phone: [facility] 03-18-2022 10:49-0400 Body weight 113.4 kg Jose Najera MD Work Phone: [facility] 03-18-2022 10:49-0400 Diastolic blood pressure 49 mm[Hg] Jose Najera MD Work Phone: [facility] 03-18-2022 10:49-0400 Heart rate 86 /min Jose Najera MD Work Phone: [facility] 03-18-2022 10:49-0400 Respiratory rate 16 /min Jose Najera MD Work Phone: [facility] 03-18-2022 10:49-0400 SaO2% (BldA) [Mass fraction] 98 % Jose Najera MD Work Phone: [facility] 03-18-2022 10:49-0400 Systolic blood pressure 145 mm[Hg] Jose Najera MD Work Phone: [facility] 03-09-2022 11:41-0400 Body height 170.2 cm Christie Phan MD Work Phone: [facility] 03-09-2022 11:41-0400 Body weight 112.49 kg Christie Phan MD Work Phone: [facility] 03-09-2022 11:41-0400 Diastolic blood pressure 100 mm[Hg] Christie Phan MD Work Phone: [facility] 03-09-2022 11:41-0400 Systolic blood pressure 158 mm[Hg] Christie Phan MD Work Phone: [facility] 03-04-2022 10:39-0400 Body height 170.2 cm Jose Najera MD Work Phone: [facility] 03-04-2022 10:39-0400 Body temperature 97.5 [degF] Jose Najera MD Work Phone: [facility] 03-04-2022 10:39-0400 Body weight 112.76 kg Jose Najera MD Work Phone: [facility] 03-04-2022 10:39-0400 Diastolic blood pressure 48 mm[Hg] Jose Najera MD Work Phone: [facility] 03-04-2022 10:39-0400 Heart rate 79 /min Jose Najera MD Work Phone: [facility] 03-04-2022 10:39-0400 Respiratory rate 16 /min Jose Najera MD Work Phone: [facility] 03-04-2022 10:39-0400 SaO2% (BldA) [Mass fraction] 99 % Jose Najera MD Work Phone: [facility] 03-04-2022 10:39-0400 Systolic blood pressure 132 mm[Hg] Jose Najera MD Work Phone: [facility] 11-26-2021 16:00-0400 Body height 168.91 cm Mirela Buffy Other [employer] Other 11-26-2021 16:00-0400 Body mass index (BMI) [Ratio] 37.68 kg/m2 Mirela Kelsey Other [employer] Other 11-26-2021 16:00-0400 Body temperature 98.4 [degF] Mirela Kelsey Other [employer] Other 11-26-2021 16:00-0400 Body weight 107.5 kg Mirela Buffy Other [employer] Other 11-26-2021 16:00-0400 Diastolic blood pressure 61 mm[Hg] Mirela Kelsey Other [employer] Other 11-26-2021 16:00-0400 Systolic blood pressure 115 mm[Hg] Mirela Kelsey Other [employer] Other 10-24-2021 08:18-0400 Body weight 108.86 kg Lynne Ni MD Work Phone: [facility] 10-24-2021 08:18-0400 Diastolic blood pressure 42 mm[Hg] Lynne Ni MD Work Phone: [facility] 10-24-2021 08:18-0400 Heart rate 72 /min Lynne Ni MD Work Phone: [facility] 10-24-2021 08:18-0400 Systolic blood pressure 106 mm[Hg] Lynne Ni MD Work Phone: [facility] 10-15-2021 15:45-0400 Body height 168.91 cm Mirela Buffy Other [employer] Other 10-15-2021 15:45-0400 Body mass index (BMI) [Ratio] 38.31 kg/m2 Mirela Kelsey Other [employer] Other 10-15-2021 15:45-0400 Body temperature 98.1 [degF] Mirela Kelsey Other [employer] Other 10-15-2021 15:45-0400 Body weight 109.32 kg Mirela Kelsey Other [employer] Other 10-15-2021 15:45-0400 Diastolic blood pressure 60 mm[Hg] Mirela Kelsey Other [employer] Other 10-15-2021 15:45-0400 Systolic blood pressure 114 mm[Hg] Mirela Kelsey Other [employer] Other 09-11-2021 15:15-0400 Body height 168.91 cm Mirela Buffy Other [employer] Other 09-11-2021 15:15-0400 Body mass index (BMI) [Ratio] 37.99 kg/m2 Mirela Kelsey Other [employer] Other 09-11-2021 15:15-0400 Body temperature 97.9 [degF] Mirela Kelsey Other [employer] Other 09-11-2021 15:15-0400 Body weight 108.41 kg Mirela Buffy Other [employer] Other 09-11-2021 15:15-0400 Diastolic blood pressure 83 mm[Hg] Mirela Kelsey Other [employer] Other 09-11-2021 15:15-0400 Systolic blood pressure 144 mm[Hg] Mirela Kelsey Other [employer] Other 10-07-2020 12:45-0400 Diastolic blood pressure 78 mm[Hg] Stv A Ushi Phone: 10-07-2020 12:45-0400 Heart rate 68 /min Stv A Ushi Phone: 10-07-2020 12:45-0400 SaO2% (BldA) [Mass fraction] 99 % [facility]v [facility] Phone: 10-07-2020 12:45-0400 Systolic blood pressure 112 mm[Hg] Stv A Ushi Phone: 10-07-2020 10:45-0400 Respiratory rate 22 /min [facility] Phone: 10-07-2020 09:01-0400 Body height 170.2 cm Stv A Ushi Phone: 10-07-2020 09:01-0400 Body mass index (BMI) [Ratio] 36.65 kg/m2 [facility] Phone: 10-07-2020 09:01-0400 Body temperature 97.81 [degF] [facility]v [facility] Phone: 10-07-2020 09:01-0400 Body weight 106.14 kg [facility] Phone: Encounters Encounter Date Encounter Type Care Provider Facility Start: 07-06-2023 End: 07-06-2023 ambulatory JUAN LUIS RICHARDSON Not Available Start: 07-06-2023 End: 07-06-2023 Office outpatient visit 25 minutes Juan Luis Richardson MD Work Phone: [facility] Comment on above: Autoimmune disease ( CMS/HCC) (Primary Dx); Autonomic dysfunction; Lumbosacral radiculopathy; Bilateral leg weakness Start: 07-05-2023 Chart abstracting Juan Luis ramirez MD Work Phone: [facility] Start: 06-10-2023 End: 06-10-2023 ambulatory MADELAINE M HOY Facility:[facility] Start: 06-09-2023 End: 06-09-2023 ambulatory [facility] Start: 06-09-2023 End: 06-09-2023 Office outpatient new 60 minutes [facility] 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 Work Phone: [facility] Comment on above: Irregular heart rate (Primary Dx); Essential hypertension; Autonomic dysfunction; Obstructive sleep apnea syndrome; Primary hypertension Start: 06-03-2023 End: 06-03-2023 ambulatory MADELAINE M HOY Facility:[facility] Start: 06-01-2023 End: 06-01-2023 ambulatory MADELAINE M HOY Facility:[facility] Start: 06-01-2023 End: 06-01-2023 ambulatory SHARRON ROGERS Not Available Start: 05-26-2023 End: 05-26-2023 ambulatory MADELAINE M HOY Facility:[facility] Start: 05-26-2023 End: 05-26-2023 Office outpatient visit 40 minutes Christie Phan MD Work Phone: Integrated Medicine Comment on above: Obesity, Class III, BMI >= 40 (Primary Dx); Other chronic pain Start: 05-10-2023 End: 05-11-2023 ambulatory MADELAINE M HOY Facility:[facility] Start: 05-06-2023 End: 05-07-2023 ambulatory SHARRON ROGERS [...] Not Available Start: 04-16-2023 End: 04-16-2023 ambulatory [facility] Facility:[facility] Start: 04-16-2023 End: 04-16-2023 Nursing evaluation of patient and report Cele Marshall Work Phone: Hematology/Oncology Comment on above: 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); Elevated sed rate Start: 04-09-2023 End: 04-09-2023 ambulatory [facility] Facility:[facility] Start: 03-19-2023 End: 03-19-2023 ambulatory [facility] Facility:[facility] Start: 03-19-2023 End: 03-19-2023 Nursing evaluation of patient and report Cele Marshall Work Phone: Hematology/Oncology Comment on above: 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); Elevated sed rate Start: 03-16-2023 Chart [facility] Work Phone: Neurology Comment on above: CMN Start: 03-11-2023 End: 03-11-2023 ambulatory [facility] Facility:[facility] Start: 03-11-2023 End: 03-11-2023 Nursing evaluation of patient and report Nurse Morgan Fu Work Phone: Rheumatology Comment on above: Systemic lupus eryth ematosus, unspecified SLE type, unspecified organ involvement status (HCC) (Primary Dx) Start: 03-03-2023 End: 03-03-2023 ambulatory [facility] Facility:[facility] Start: 03-01-2023 Telephone encounter Lynne shaw MD Work Phone: Rheumatology Comment on above: Results (Eye Exam) Start: 02-19-2023 End: 02-19-2023 ambulatory [facility] Facility:[facility] Start: 02-19-2023 End: 02-19-2023 Nursing evaluation of patient and report Cele [...] above: Refill Request Start: 02-11-2023 End: 02-11-2023 [facility] Facility:[facility] Start: 02-04-2023 End: 02-04-2023 ambulatory [...] deficiency; Elevated sed rate; Bilateral wrist pain; 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; Steroid-induced osteoporosis; 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 Start: 02-04-2023 Patient encounter procedure Clinton Schroeder (Pharmacist) [facility] Comment on above: SPP Inflammatory Con ditions - Treatment Referral (Benlysta); Insurance Authorization ([place] submission pending) Start: 02-04-2023 Telephone encounter Lynne shaw MD Work Phone: Rheumatology Comment on above: Appointment; Orders; Medication Authorization Start: 02-04-2023 End: 02-04-2023 ambulatory [facility] Facility:[facility] Start: 02-04-2023 End: 02-04-2023 Telemedicine consultation with patient Lynne Ni MD Work Phone: [facility] Start: 01-28-2023 Refill Christie Hays Work Phone: Integrated Medicine Comment on above: Refill Request Start: 01-24-2023 Telephone encounter Lynne shaw MD Work Phone: Rheumatology Comment on above: Results Start: 01-22-2023 End: 01-22-2023 ambulatory [facility] Facility:[facility] Start: 01-22-2023 End: 01-22-2023 Nursing evaluation of patient and report Mi Nurse Dre Marshall Work Phone: Hematology/Oncology Comment [...] with patient Misty Nelson MD Work Phone: [facility] Start: 12-29-2022 End: 12-29-2022 ambulatory [facility] Facility:[facility] Start: 12-24-2022 Refill Christie Hays Work Phone: Integrated Medicine Comment on above: Refill Request Start: 12-18-2022 Telephone encounter Lidia Argueta RN Work Phone: Hematology/Oncology Comment on above: Care Coordination (a ppointment) Start: 12-17-2022 End: 12-18-2022 ambulatory MADELAINE FERRIS Facility:[facility] Start: 12-17-2022 End: 12-18-2022 ambulatory Wilmer Driver STOCK OR DELIVERY CLERK.SUBSTATION OPERATOR AUTOMATIC Work Phone: Hematology/Oncology Comment on above: 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); Chronic fatigue and malaise Start: 12-17-2022 End: 12-18-2022 Telemedicine consultation with patient Wilmer Driver APRN.SUBSTATION OPERATOR AUTOMATIC Work Phone: [place] Start: 12-16-2022 Telephone encounter Pamella bernstein RN Work Phone: Hematology/Oncology Comment on above: Appointment Start: 12-08-2022 End: 12-08-2022 ambulatory Jose Najera MD Work Phone: Hematology/Oncology Comment on above: Test results Start: 12-08-2022 Telephone encounter Enma Osuna Hematology/Oncology Comment on above: Results Start: 11-22-2022 ambulatory Lynne Ni MD Work Phone: Rheumatology Comment on above: update Start: 11-19-2022 End: 11-19-2022 ambulatory MADELAINE Daniela Cristina Facility:[facility] Start: 11-19-2022 End: 11-19-2022 Nursing evaluation of patient and report Cele Marshall Work Phone: Hematology/Oncology Comment on above: 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); Elevated sed rate Start: 10-29-2022 End: 10-29-2022 ambulatory MADELAINE Daniela Cristina Facility:[facility] Start: 10-22-2022 End: 10-22-2022 ambulatory [facility] Facility:[facility] Start: 10-22-2022 End: 10-22-2022 Nursing [...] Start: 10-15-2022 End: 10-15-2022 ambulatory MADELAINE FERRIS Facility:[facility] Start: 09-24-2022 End: 09-25-2022 ambulatory MICKY PARNELL . Facility: Start: 09-24-2022 End: 09-24-2022 ambulatory MADELAINE Daniela JOSY Facility:[facility] Start: 09-24-2022 End: 09-24-2022 Nursing evaluation of patient and report Cele Marshall Work Phone: Hematology/Oncology Comment on above: 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); Elevated sed rate Start: 09-10-2022 End: 09-10-[address] MADELAINE FERRIS . Facility: Start: 09-08-2022 Telephone encounter Angelia Washington [facility] Comment on above: Compliance Adherence Start: 09-07-2022 End: 09-07-2022 ambulatory MADELAINE FERRIS Facility:[facility] Start: 09-07-2022 End: 09-07-2022 Office [...] Start: 08-27-2022 End: 08-27-2022 ambulatory Wilmer Driver STOCK OR DELIVERY CLERK.SUBSTATION OPERATOR AUTOMATIC Work Phone: Hematology/Oncology Comment on above: 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); Elevated sed rate; High total serum IgM; Chronic fatigue and malaise; JOSE RAFAEL (obstructive sleep apnea) Start: 08-27-2022 End: 08-27-2022 Patient encounter procedure Wilmer Driver APRN.SUBSTATION OPERATOR AUTOMATIC Work Phone: [place] Start: 08-19-2022 Telephone encounter Lynne shaw MD Work Phone: Rheumatology Comment on above: Results Start: 08-18-2022 End: 08-18-2022 ambulatory [facility] Facility:[facility] Start: 08-15-2022 ambulatory Lynne Ni MD Work Phone: Rheumatology Comment on above: update Start: 08-10-2022 Refill Christie Hays Work Phone: [facility] Comment on above: Refill Request Start: 07-27-2022 End: 07-27-2022 ambulatory [facility] Facility:[facility] Start: 07-27-2022 End: 07-27-2022 ambulatory Timmy Heck MAURILIO.SUBSTATION OPERATOR AUTOMATIC Work Phone: Neurology Comment on above: JOSE RAFAEL (obstructive sle ep apnea) (Primary Dx) Start: 07-27-2022 End: 07-27-2022 Telemedicine consultation with patient Timmy Heck APRN.SUBSTATION OPERATOR AUTOMATIC Work Phone: [facility] Start: 07-24-2022 ambulatory Lynne Ni MD Work Phone: Rheumatology Comment on above: Blood work Start: 07-24-2022 Telephone encounter Jose hooker MD Work Phone: Hematology/Oncology Comment on above: Orders (Lab Orders E xpire Before Appointment) Start: 07-21-2022 ambulatory Lawanda Miranda MD Work Phone: [facility] Start: 07-21-2022 Patient encounter procedure [...] Start: 03-30-2022 E-mail encounter fro m caregiver Misyt Nelson MD Work Phone: [facility] Start: 03-26-2022 [...] m caregiver Christie Phan MD Work Phone: [facility] Start: 03-18-2022 End: 03-18-2022 Patient encounter procedure Jose Najera MD Work Phone: [place] Start: 03-12-2022 End: 03-13-[address] MADELAINE FERRIS . Facility:[facility] Start: 03-10-2022 End: 03-10-2022 ambulatory Tiffany Head Work Phone: Infectious Disease Comment on above: results Raised level of immu noglobulins (Primary Dx); Wound healing, delayed; Current smoker Start: 03-10-2022 E-mail encounter fro daniela caregiver Tiffany Head Work Phone: [facility] Start: 03-10-2022 End: 03-10-2022 Telemedicine consultation with patient Misty Nelson MD Work Phone: [place] Start: 03-09-2022 End: 03-10-2022 ambulatory GAY ENCISO Facility:[facility] Start: 03-09-2022 End: 03-09-2022 Office consultation new/estab patient 80 min Christie Phan MD Work Phone: [facility] Comment on above: Obesity, Class II, B NH 35-39.9 (Primary Dx); Somnolence, daytime; Chronic fatigue [...] encounter procedure Jose Najera MD Work Phone: [place] Start: 03-02-2022 Chart abstracting Jose waterman MD [...] with patient Tiffany Head DO Work Phone: [facility] Start: 02-14-2022 End: 02-15-[address] MADELAINE FERRIS . Facility: Start: 11-26-2021 End: 11-26-2021 ambulatory Mirela Kelsey Other [facility] Other Start: 11-26-2021 Office outpatient vi sit [...] 10-15-2021 End: 10-15-2021 ambulatory Mirela Kelsey Other [facility] Other Start: 10-15-2021 Office outpatient vi sit 25 minutes Mirela Kelsey [facility] Infectious Disease Start: 10-03-2021 End: [address] MIRELA KELSEY Facility:[facility] Start: 09-18-2021 End: 09-18-2021 ambulatory Mirela Kelsey Other [facility] Other Start: 09-18-2021 Telephone encounter Mirela Kelsey [facility] Infectious Disease Start: 09-11-2021 End: 09-11-2021 ambulatory Mirela Kelsey Other [facility] Other Start: 09-11-2021 Office outpatient ne w 45 minutes Mirela Kelsey [facility] Infectious Disease Start: 10-07-2020 End: 10-08-2020 ambulatory JAREN HOLLEY [facility] Start: 10-07-2020 End: 10-07-2020 Subsequent hospital visit by physician [employer] [employer] Jameson Melendez [facility] [facility] Comment on above: Arrived Start: 09-17-2018 End: 09-17-2018 Patient encounter procedure Bettina Jiménez Facility:[facility] Start: 09-14-2018 End: 09-17-2018 Patient encounter procedure VICTOR MANUEL Daniela GUZMAN [facility] Procedures Date Procedure Procedure Detail Performing Clinician Start: 06-09-2023 ECG 12-LEAD MICHELLE [place] Start: 06-09-2023 Ecg routine ecg w/le ast 12 lds w/i&r Michelle Britton 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 Work Phone: Start: 10-07-2020 End: 10-07-2020 Cardiac [...] Start: 03-17-2025 Diabetes mellitus screening Diabetes Screening [facility] Start: 01-24-2024 Influenza vaccination Influenza Vacc ine (#1) [facility] Comment on above: Postponed from 01/22 (Patient Refused) Start: 09-13-2023 End: 09-13-2023 Patient encounter procedure 09/13/2023 9:00 AM EDT Office Visit [facility] [address] [place] [address] Juan Luis Richardson MD [address] [place] [id number] [facility] Start: 07-19-2023 End: 07-19-2023 Patient encounter procedure 07/19/2023 9:15 AM EST Office Visit [facility] [address] [place] [address] Aurora Patel MD [address] [facility] [address] [place] [address] [facility] Start: 07-15-2023 End: 07-15-2023 Patient encounter procedure 07/15/2023 10:50 AM EST Office Visit [facility] [address] [facility] [address] [place] [address] Cynthia English MD [address] [facility] [address] [place] [address] [facility] Start: 07-06-2023 End: 07-06-2023 Patient encounter procedure 07/06/2023 2:30 PM EST Office Visit [facility] [address] [facility] [address] [place] [address], [place] [phone] Juan Luis Richardson MD [address] [facility] [address] [place] [address] [facility] [address] Start: 07-06-2023 End: 07-06-2024 Protein electrophoresis, serum Protein electrophoresis, serum Lab Routine Autoimmune disease (CMS/HCC) Autonomic dysfunction Expected: 07/06/2023 (Approximate), Expires: 07/06/2024 [facility] Work Phone: Comment on above: Expected: 07/06/2023 (Approximate), Expires: 07/06/2024 Start: 07-06-2023 End: 07-06-2024 Protein electrophoresis, urine Protein electrophoresis, urine Lab Routine Autoimmune disease (CMS/HCC) Autonomic dysfunction Expected: 07/06/2023 (Approximate), Expires: 07/06/2024 [facility] Comment on above: Expected: 07/06/2023 (Approximate), Expires: 07/06/2024 Start: 06-09-2023 End: 06-09-2024 Holter monitor study 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 Cardiac Services Routine Irregular heart rate Expected: 06/09/2023 (Approximate), Expires: 06/09/2024 [facility] Work Phone: Comment on above: Expected: 06/09/2023 (Approximate), Expires: 06/09/2024 Start: 06-09-2023 End: 06-09-2024 Lipid 1996 panel - Serum or Plasma Lipid Panel Lab Routine Primary hypertension Expected: 06/09/2023 (Approximate), Expires: 06/09/2024 [facility] Work Phone: Comment on above: Expected: 06/09/2023 (Approximate), Expires: 06/09/2024 Start: 06-09-2023 End: 06-09-2024 Thyrotropin [Units/volume] in Serum or Plasma Thyroid Stimulating Hormone Lab Routine Irregular heart rate Expected: 06/09/2023 (Approximate), Expires: 06/09/2024 [facility] Work Phone: Comment on above: Expected: 06/09/2023 (Approximate), Expires: 06/09/2024 Start: 06-09-2023 End: 06-09-2024 Thyroxine (T4) free [Mass/volume] in Serum or Plasma Thyroxine, Free Lab Routine Irregular heart rate Expected: 06/09/2023 (Approximate), Expires: 06/09/2024 [facility] Work Phone: Comment on above: Expected: 06/09/2023 (Approximate), Expires: 06/09/2024 Start: 06-09-2023 End: 06-09-2025 Heart Transthoracic Transthoracic Echo (TTE) Complete Echocardiography Routine Irregular heart rate Obstructive sleep apnea syndrome Expected: 06/09/2023 (Approximate), Expires: 06/09/2025 [facility] Service Area Work Phone: Comment on above: Expected: 06/09/2023 (Approximate), Expires: 06/09/2025 Start: 04-25-2023 End: 01-25-2024 25-hydroxyvitamin D3 [Mass/volume] in Serum or Plasma VITAMIN D 25 HYDROXY Lab Routine Vitamin D deficiency Expected: 04/25/2023 (Approximate), Expires: 01/25/2024 [facility] Work Phone: Comment on above: Expected: 04/25/2023 (Approximate), Expires: 01/25/2024 Start: 04-25-2023 End: 01-25-2024 C reactive protein [Mass/volume] in Serum or Plasma C-REACTIVE PROTEIN (CRP) Lab Routine Elevated sed rate Elevated C-reactive protein (CRP) Expected: 04/25/2023 (Approximate), Expires: 01/25/2024 [facility] Work Phone: Comment on above: Expected: 04/25/2023 (Approximate), Expires: 01/25/2024 Start: 04-25-2023 End: 01-25-2024 CBC panel - Blood by Automated count CBC Lab Routine Anemia of chronic disease Expected: 04/25/2023 (Approximate), Expires: 01/25/2024 [facility] Work Phone: Comment on above: Expected: 04/25/2023 (Approximate), Expires: 01/25/2024 Start: 04-25-2023 End: 01-25-2024 Comprehensive metabolic 2000 panel - Serum or Plasma COMP METABOLIC PANEL Lab Routine Elevated LFTs Expected: 04/25/2023 (Approximate), Expires: 01/25/2024 [facility] Work Phone: Comment on above: Expected: 04/25/2023 (Approximate), Expires: 01/25/2024 Start: 04-25-2023 End: 01-25-2024 Erythrocyte sedimentation rate SED RATE WESTERGREN Lab Routine Elevated sed rate Elevated C-reactive protein (CRP) Expected: 04/25/2023 (Approximate), Expires: 01/25/2024 [facility] Work Phone: Comment on above: Expected: 04/25/2023 (Approximate), Expires: 01/25/2024 Start: 04-20-2023 COVID-19 Vaccine (4 - Pfizer risk series) COVID-19 Vaccine (4 - Pfizer risk series) [facility] Start: 04-20-2023 Covid-19 Vaccine ( season) Covid-19 Vaccine () [facility] Start: 04-20-2023 Covid-19 Vaccine () Covid-19 Vaccine () [facility] Start: 04-16-2023 End: 02-20-2024 CBC W Auto Differential panel - Blood CBC + DIFF Lab Routine Megaloblastic anemia due to vitamin B12 deficiency Elevated sed rate Chronic fatigue and malaise High total serum IgM JOSE RAFAEL (obstructive sleep apnea) Expected: 04/16/2023 (Approximate), Expires: 02/20/2024 [facility] Work Phone: Comment on above: Expected: 04/16/2023 (Approximate), Expires: 02/20/2024 Start: 04-16-2023 End: 02-20-2024 Cobalamin (Vitamin B12) [Mass/volume] in Serum or Plasma VITAMIN B12 BLOOD Lab Routine Megaloblastic anemia due to vitamin B12 deficiency Elevated sed rate Chronic fatigue and malaise High total serum IgM JOSE RAFAEL (obstructive sleep apnea) Expected: 04/16/2023 (Approximate), Expires: 02/20/2024 [facility] Work Phone: Comment on above: Expected: 04/16/2023 (Approximate), Expires: 02/20/2024 Start: 04-16-2023 End: 02-20-2024 Comprehensive metabolic 2000 panel - Serum or Plasma COMP METABOLIC PANEL Lab Routine Megaloblastic anemia due to vitamin B12 deficiency Elevated sed rate Chronic fatigue and malaise High total serum IgM JOSE RAFAEL (obstructive sleep apnea) Expected: 04/16/2023 (Approximate), Expires: 02/20/2024 [facility] Work Phone: Comment on above: Expected: 04/16/2023 (Approximate), Expires: 02/20/2024 Start: 04-16-2023 End: 02-20-2024 Ferritin [Mass/volume] in Serum or Plasma FERRITIN BLD Lab Routine Megaloblastic anemia due to vitamin B12 deficiency Elevated sed rate Chronic fatigue and malaise High total serum IgM JOSE RAFAEL (obstructive sleep apnea) Expected: 04/16/2023 (Approximate), Expires: 02/20/2024 [facility] Work Phone: Comment on above: Expected: 04/16/2023 (Approximate), Expires: 02/20/2024 Start: 04-16-2023 End: 02-20-2024 Folate [Mass/volume] in Serum or Plasma FOLATE SERUM Lab Routine Megaloblastic anemia due to vitamin B12 deficiency Elevated sed rate Chronic fatigue and malaise High total serum IgM JOSE RAFAEL (obstructive sleep apnea) Expected: 04/16/2023 (Approximate), Expires: 02/20/2024 [facility] Work Phone: Comment on above: Expected: 04/16/2023 (Approximate), Expires: 02/20/2024 Start: 04-16-2023 End: 02-20-2024 Iron and Iron binding capacity panel - Serum or Plasma IRON + TIBC Lab Routine Megaloblastic anemia due to vitamin B12 deficiency Elevated sed rate Chronic fatigue and malaise High total serum IgM JOSE RAFAEL (obstructive sleep apnea) Expected: 04/16/2023 (Approximate), Expires: 02/20/2024 [facility] Work Phone: Comment on above: Expected: 04/16/2023 (Approximate), Expires: 02/20/2024 Start: 03-10-2023 End: 06-09-2023 Insulin [Units/volume] in Serum or Plasma INSULIN ASSAY BLOOD Lab Routine Insulin resistance, unspecified Expected: 03/10/2023, Expires: 06/09/2023 [facility] Work Phone: Comment on above: Expected: 03/10/2023 , Expires: 06/09/2023 Start: 03-10-2023 End: 06-09-2023 INSULIN ANTIBODY BLD INSULIN ANTIBODY BLD Lab Routine Insulin resistance, unspecified Expected: 03/10/2023, Expires: 06/09/2023 [facility] Work Phone: Comment on above: Expected: 03/10/2023 , Expires: 06/09/2023 Start: 02-11-2023 End: 02-08-2024 [id number] [Mass/volume] in Serum or Plasma B2 MICROGLOBULIN B Lab Routine Megaloblastic anemia due to vitamin B12 deficiency High total serum IgM Elevated sed rate Expected: 02/11/2023 (Approximate), Expires: 02/08/2024 [facility] Work Phone: Comment on above: Expected: 02/11/2023 (Approximate), Expires: 02/08/2024 Start: 02-11-2023 End: 02-08-2024 Calcium.ionized [Moles/volume] in Blood CALCIUM IONIZED BLOOD Lab Routine Megaloblastic anemia due to vitamin B12 deficiency High total serum IgM Elevated sed rate Expected: 02/11/2023 (Approximate), Expires: 02/08/2024 [facility] Work Phone: Comment on above: Expected: 02/11/2023 (Approximate), Expires: 02/08/2024 Start: 02-11-2023 End: 02-08-2024 CBC W Auto Differential panel - Blood CBC + DIFF Lab Routine Megaloblastic anemia due to vitamin B12 deficiency High total serum IgM Elevated sed rate Expected: 02/11/2023 (Approximate), Expires: 02/08/2024 [facility] Work Phone: Comment on above: Expected: 02/11/2023 (Approximate), Expires: 02/08/2024 Start: 02-11-2023 End: 02-08-2024 Cobalamin (Vitamin B12) [Mass/volume] in Serum or Plasma VITAMIN B12 BLOOD Lab Routine Megaloblastic anemia due to vitamin B12 deficiency High total serum IgM Elevated sed rate Expected: 02/11/2023 (Approximate), Expires: 02/08/2024 [facility] Work Phone: Comment on above: Expected: 02/11/2023 (Approximate), Expires: 02/08/2024 Start: 02-11-2023 End: 02-08-2024 Comprehensive metabolic 2000 panel - Serum or Plasma COMP METABOLIC PANEL Lab Routine Megaloblastic anemia due to vitamin B12 deficiency High total serum IgM Elevated sed rate Expected: 02/11/2023 (Approximate), Expires: 02/08/2024 [facility] Work Phone: Comment on above: Expected: 02/11/2023 (Approximate), Expires: 02/08/2024 Start: 02-11-2023 End: 02-08-2024 Ferritin [Mass/volume] in Serum or Plasma FERRITIN BLD Lab Routine Megaloblastic anemia due to vitamin B12 deficiency High total serum IgM Elevated sed rate Expected: 02/11/2023 (Approximate), Expires: 02/08/2024 [facility] Work Phone: Comment on above: Expected: 02/11/2023 (Approximate), Expires: 02/08/2024 Start: 02-11-2023 End: 02-08-2024 Folate [Mass/volume] in Serum or Plasma FOLATE SERUM Lab Routine Megaloblastic anemia due to vitamin B12 deficiency High total serum IgM Elevated sed rate Expected: 02/11/2023 (Approximate), Expires: 02/08/2024 [facility] Work Phone: Comment on above: Expected: 02/11/2023 (Approximate), Expires: 02/08/2024 Start: 02-11-2023 End: 02-08-2024 Iron and Iron binding capacity panel - Serum or Plasma IRON + TIBC Lab Routine Megaloblastic anemia due to vitamin B12 deficiency High total serum IgM Elevated sed rate Expected: 02/11/2023 (Approximate), Expires: 02/08/2024 [facility] Work Phone: Comment on above: Expected: 02/11/2023 (Approximate), Expires: 02/08/2024 Start: 02-11-2023 End: 04-13-2023 KAPPA/FARMER,FREE,SER KAPPA/FARMER,FREE,SER Lab Routine Megaloblastic anemia due to vitamin B12 deficiency High total serum IgM Elevated sed rate Expected: 02/11/2023 (Approximate), Expires: 04/13/2023 [facility] Work Phone: Comment on above: Expected: 02/11/2023 (Approximate), Expires: 04/13/2023 Start: 02-11-2023 End: 02-08-2024 Lactate dehydrogenase [Enzymatic activity/volume] in Serum or Plasma LD LACTATE DEHYDRO Lab Routine Megaloblastic anemia due to vitamin B12 deficiency High total serum IgM Elevated sed rate Expected: 02/11/2023 (Approximate), Expires: 02/08/2024 [facility] Work Phone: Comment on above: Expected: 02/11/2023 (Approximate), Expires: 02/08/2024 Start: 02-11-2023 End: 02-08-2024 MONOCLONAL PROTEIN, SERUM (BLOOD) MONOCLONAL PROTEIN, SERUM (BLOOD) Lab Routine Megaloblastic anemia due to vitamin B12 deficiency High total serum IgM Elevated sed rate Expected: 02/11/2023 (Approximate), Expires: 02/08/2024 [facility] Work Phone: Comment on above: Expected: 02/11/2023 (Approximate), Expires: 02/08/2024 Start: 02-11-2023 End: 02-08-2024 Phosphate [Mass/volume] in Serum or Plasma PHOSPHORUS INORGANIC Lab Routine Megaloblastic anemia due to vitamin B12 deficiency High total serum IgM Elevated sed rate Expected: 02/11/2023 (Approximate), Expires: 02/08/2024 [facility] Work Phone: Comment on above: Expected: 02/11/2023 (Approximate), Expires: 02/08/2024 Start: 02-11-2023 End: 02-08-2024 PROTEIN ELECTROPHORESIS SERUM W/INTERP PROTEIN ELECTROPHORESIS SERUM W/INTERP Lab Routine Megaloblastic anemia due to vitamin B12 deficiency High total serum IgM Elevated sed rate Expected: 02/11/2023 (Approximate), Expires: 02/08/2024 [facility] Work Phone: Comment on above: Expected: 02/11/2023 (Approximate), Expires: 02/08/2024 Start: 02-11-2023 End: 02-08-2024 Urate [Mass/volume] in Serum or Plasma URIC ACID BLOOD Lab Routine Megaloblastic anemia due to vitamin B12 deficiency High total serum IgM Elevated sed rate Expected: 02/11/2023 (Approximate), Expires: 02/08/2024 [facility] Work Phone: Comment on above: Expected: 02/11/2023 (Approximate), Expires: 02/08/2024 Start: 01-22-2023 Influenza vaccination C [facility] Start: 12-17-2022 End: 10-23-2023 CBC W Auto Differential panel - Blood CBC + DIFF Lab Routine Megaloblastic anemia due to vitamin B12 deficiency Expected: 12/17/2022 (Approximate), Expires: 10/23/2023 [facility] Work Phone: Comment on above: Expected: 12/17/2022 (Approximate), Expires: 10/23/2023 Start: 12-17-2022 End: 10-23-2023 Cobalamin (Vitamin B12) [Mass/volume] in Serum or Plasma VITAMIN B12 BLOOD Lab Routine Megaloblastic anemia due to vitamin B12 deficiency Expected: 12/17/2022 (Approximate), Expires: 10/23/2023 [facility] Work Phone: Comment on above: Expected: 12/17/2022 (Approximate), Expires: 10/23/2023 Start: 12-17-2022 End: 10-23-2023 Comprehensive metabolic 2000 panel - Serum or Plasma COMP METABOLIC PANEL Lab Routine Megaloblastic anemia due to vitamin B12 deficiency Expected: 12/17/2022 (Approximate), Expires: 10/23/2023 [facility] Work Phone: Comment on above: Expected: 12/17/2022 (Approximate), Expires: 10/23/2023 Start: 12-17-2022 End: 10-23-2023 Ferritin [Mass/volume] in Serum or Plasma FERRITIN BLD Lab Routine Megaloblastic anemia due to vitamin B12 deficiency Expected: 12/17/2022 (Approximate), Expires: 10/23/2023 [facility] Work Phone: Comment on above: Expected: 12/17/2022 (Approximate), Expires: 10/23/2023 Start: 12-17-2022 End: 10-23-2023 Folate [Mass/volume] in Serum or Plasma FOLATE SERUM Lab Routine Megaloblastic anemia due to vitamin B12 deficiency Expected: 12/17/2022 (Approximate), Expires: 10/23/2023 [facility] Work Phone: Comment on above: Expected: 12/17/2022 (Approximate), Expires: 10/23/2023 Start: 12-17-2022 End: 10-23-2023 Iron and Iron binding capacity panel - Serum or Plasma IRON + TIBC Lab Routine Megaloblastic anemia due to vitamin B12 deficiency Expected: 12/17/2022 (Approximate), Expires: 10/23/2023 [facility] Work Phone: Comment on above: Expected: 12/17/2022 (Approximate), Expires: 10/23/2023 Start: 10-23-2022 End: 12-23-2022 25-hydroxyvitamin D3 [Mass/volume] in Serum or Plasma VITAMIN D 25 HYDROXY Lab Routine Megaloblastic anemia due to vitamin B12 deficiency Elevated sed rate High total serum IgM Chronic fatigue and malaise JOSE RAFAEL (obstructive sleep apnea) Expected: 10/23/2022, Expires: 12/23/2022 [facility] Work Phone: Comment on above: Expected: 10/23/2022 , Expires: 12/23/2022 Start: 10-23-2022 End: 12-23-2022 C reactive protein [Mass/volume] in Serum or Plasma C-REACTIVE PROTEIN (CRP) Lab Routine Megaloblastic anemia due to vitamin B12 deficiency Elevated sed rate High total serum IgM Chronic fatigue and malaise JOSE RAFAEL (obstructive sleep apnea) Expected: 10/23/2022, Expires: 12/23/2022 [facility] Work Phone: Comment on above: Expected: 10/23/2022 , Expires: 12/23/2022 Start: 10-23-2022 End: 12-23-2022 CBC W Auto Differential panel - Blood CBC + DIFF Lab Routine Megaloblastic anemia due to vitamin B12 deficiency Elevated sed rate High total serum IgM Chronic fatigue and malaise JOSE RAFAEL (obstructive sleep apnea) Expected: 10/23/2022, Expires: 12/23/2022 [facility] Work Phone: Comment on above: Expected: 10/23/2022 , Expires: 12/23/2022 Start: 10-23-2022 End: 12-23-2022 Cobalamin (Vitamin B12) [Mass/volume] in Serum or Plasma VITAMIN B12 BLOOD Lab Routine Megaloblastic anemia due to vitamin B12 deficiency Elevated sed rate High total serum IgM Chronic fatigue and malaise JOSE RAFAEL (obstructive sleep apnea) Expected: 10/23/2022, Expires: 12/23/2022 [facility] Work Phone: Comment on above: Expected: 10/23/2022 , Expires: 12/23/2022 Start: 10-23-2022 End: 12-23-2022 Comprehensive metabolic 2000 panel - Serum or Plasma COMP METABOLIC PANEL Lab Routine Megaloblastic anemia due to vitamin B12 deficiency Elevated sed rate High total serum IgM Chronic fatigue and malaise JOSE RAFAEL (obstructive sleep apnea) Expected: 10/23/2022, Expires: 12/23/2022 [facility] Work Phone: Comment on above: Expected: 10/23/2022 , Expires: 12/23/2022 Start: 10-23-2022 End: 12-23-2022 Erythrocyte sedimentation rate SED RATE WESTERGREN Lab Routine Megaloblastic anemia due to vitamin B12 deficiency Elevated sed rate High total serum IgM Chronic fatigue and malaise JOSE RAFAEL (obstructive sleep apnea) Expected: 10/23/2022, Expires: 12/23/2022 [facility] Work Phone: Comment on above: Expected: 10/23/2022 , Expires: 12/23/2022 Start: 10-23-2022 End: 12-23-2022 Lactate dehydrogenase [Enzymatic activity/volume] in Serum or Plasma LD LACTATE DEHYDRO Lab Routine Megaloblastic anemia due to vitamin B12 deficiency Elevated sed rate High total serum IgM Chronic fatigue and malaise JOSE RAFAEL (obstructive sleep apnea) Expected: 10/23/2022, Expires: 12/23/2022 [facility] Work Phone: Comment on above: Expected: 10/23/2022 , Expires: 12/23/2022 Start: 10-23-2022 End: 12-23-2022 MONOCLONAL PROTEIN, SERUM (BLOOD) MONOCLONAL PROTEIN, SERUM (BLOOD) Lab Routine Megaloblastic anemia due to vitamin B12 deficiency Elevated sed rate High total serum IgM Chronic fatigue and malaise JOSE RAFAEL (obstructive sleep apnea) Expected: 10/23/2022, Expires: 12/23/2022 [facility] Work Phone: Comment on above: Expected: 10/23/2022 , Expires: 12/23/2022 Start: 10-23-2022 End: 12-23-2022 PROT ELECT SERUM WITH DANA AND INTERP PROT ELECT SERUM WITH DANA AND INTERP Lab Routine Megaloblastic anemia due to vitamin B12 deficiency Elevated sed rate High total serum IgM Chronic fatigue and malaise JOSE RAFAEL (obstructive sleep apnea) Expected: 10/23/2022, Expires: 12/23/2022 [facility] Work Phone: Comment on above: Expected: 10/23/2022 , Expires: 12/23/2022 Start: 09-19-2022 End: 08-20-2023 CBC panel - Blood by Automated count CBC Lab Routine Anemia of chronic disease Expected: 09/19/2022 (Approximate), Expires: 08/20/2023 [facility] Work Phone: Comment on above: Expected: 09/19/2022 (Approximate), Expires: 08/20/2023 Start: 09-19-2022 End: 08-20-2023 Comprehensive metabolic 2000 panel - Serum or Plasma COMP METABOLIC PANEL Lab Routine Elevated LFTs Expected: 09/19/2022 (Approximate), Expires: 08/20/2023 [facility] Work Phone: Comment on above: Expected: 09/19/2022 (Approximate), Expires: 08/20/2023 Start: 09-19-2022 End: 11-19-2022 TPMT PHENOTYPE/ENZYME ACTIVITY TPMT PHENOTYPE/ENZYME ACTIVITY Lab Routine 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 Expected: 09/19/2022 (Approximate), Expires: 11/19/2022 [facility] Work Phone: Comment on above: Expected: 09/19/2022 (Approximate), Expires: 11/19/2022 Start: 08-28-2022 End: 10-28-2022 25-hydroxyvitamin D3 [Mass/volume] in Serum or Plasma VITAMIN D 25 HYDROXY Lab Routine Megaloblastic anemia due to vitamin B12 deficiency Elevated sed rate High total serum IgM Chronic fatigue and malaise Expected: 08/28/2022 (Approximate), Expires: 10/28/2022 [facility] Work Phone: Comment on above: Expected: 08/28/2022 (Approximate), Expires: 10/28/2022 Start: 08-28-2022 End: 07-26-2023 [id number] [Mass/volume] in Serum or Plasma B2 MICROGLOBULIN B Lab Routine Megaloblastic anemia due to vitamin B12 deficiency Elevated sed rate High total serum IgM Chronic fatigue and malaise Expected: 08/28/2022 (Approximate), Expires: 07/26/2023 [facility] Work Phone: Comment on above: Expected: 08/28/2022 (Approximate), Expires: 07/26/2023 Start: 08-28-2022 End: 10-28-2022 C reactive protein [Mass/volume] in Serum or Plasma C-REACTIVE PROTEIN (CRP) Lab Routine Megaloblastic anemia due to vitamin B12 deficiency Elevated sed rate High total serum IgM Chronic fatigue and malaise Expected: 08/28/2022 (Approximate), Expires: 10/28/2022 [facility] Work Phone: Comment on above: Expected: 08/28/2022 (Approximate), Expires: 10/28/2022 Start: 08-28-2022 End: 07-26-2023 Calcium.ionized [Moles/volume] in Blood CALCIUM IONIZED BLOOD Lab Routine Megaloblastic anemia due to vitamin B12 deficiency Elevated sed rate High total serum IgM Chronic fatigue and malaise Expected: 08/28/2022 (Approximate), Expires: 07/26/2023 [facility] Work Phone: Comment on above: Expected: 08/28/2022 (Approximate), Expires: 07/26/2023 Start: 08-28-2022 End: 07-26-2023 CBC W Auto Differential panel - Blood CBC + DIFF Lab Routine Megaloblastic anemia due to vitamin B12 deficiency Elevated sed rate High total serum IgM Chronic fatigue and malaise Expected: 08/28/2022 (Approximate), Expires: 07/26/2023 [facility] Work Phone: Comment on above: Expected: 08/28/2022 (Approximate), Expires: 07/26/2023 Start: 08-28-2022 End: 10-28-2022 Cobalamin (Vitamin B12) [Mass/volume] in Serum or Plasma VITAMIN B12 BLOOD Lab Routine Megaloblastic anemia due to vitamin B12 deficiency Elevated sed rate High total serum IgM Chronic fatigue and malaise Expected: 08/28/2022 (Approximate), Expires: 10/28/2022 [facility] Work Phone: Comment on above: Expected: 08/28/2022 (Approximate), Expires: 10/28/2022 Start: 08-28-2022 End: 07-26-2023 Comprehensive metabolic 2000 panel - Serum or Plasma COMP METABOLIC PANEL Lab Routine Megaloblastic anemia due to vitamin B12 deficiency Elevated sed rate High total serum IgM Chronic fatigue and malaise Expected: 08/28/2022 (Approximate), Expires: 07/26/2023 [facility] Work Phone: Comment on above: Expected: 08/28/2022 (Approximate), Expires: 07/26/2023 Start: 08-28-2022 End: 10-28-2022 Erythrocyte sedimentation rate SED RATE WESTERGREN Lab Routine Megaloblastic anemia due to vitamin B12 deficiency Elevated sed rate High total serum IgM Chronic fatigue and malaise Expected: 08/28/2022 (Approximate), Expires: 10/28/2022 [facility] Work Phone: Comment on above: Expected: 08/28/2022 (Approximate), Expires: 10/28/2022 Start: 08-28-2022 End: 10-28-2022 KAPPA/FARMER,FREE,SER KAPPA/FARMER,FREE,SER Lab Routine Megaloblastic anemia due to vitamin B12 deficiency Elevated sed rate High total serum IgM Chronic fatigue and malaise Expected: 08/28/2022 (Approximate), Expires: 10/28/2022 [facility] Work Phone: Comment on above: Expected: 08/28/2022 (Approximate), Expires: 10/28/2022 Start: 08-28-2022 End: 07-26-2023 Lactate dehydrogenase [Enzymatic activity/volume] in Serum or Plasma LD LACTATE DEHYDRO Lab Routine Megaloblastic anemia due to vitamin B12 deficiency Elevated sed rate High total serum IgM Chronic fatigue and malaise Expected: 08/28/2022 (Approximate), Expires: 07/26/2023 [facility] Work Phone: Comment on above: Expected: 08/28/2022 (Approximate), Expires: 07/26/2023 Start: 08-28-2022 End: 07-26-2023 MONOCLONAL PROTEIN, SERUM (BLOOD) MONOCLONAL PROTEIN, SERUM (BLOOD) Lab Routine Megaloblastic anemia due to vitamin B12 deficiency Elevated sed rate High total serum IgM Chronic fatigue and malaise Expected: 08/28/2022 (Approximate), Expires: 07/26/2023 [facility] Work Phone: Comment on above: Expected: 08/28/2022 (Approximate), Expires: 07/26/2023 Start: 08-28-2022 End: 07-26-2023 Phosphate [Mass/volume] in Serum or Plasma PHOSPHORUS INORGANIC Lab Routine Megaloblastic anemia due to vitamin B12 deficiency Elevated sed rate High total serum IgM Chronic fatigue and malaise Expected: 08/28/2022 (Approximate), Expires: 07/26/2023 [facility] Work Phone: Comment on above: Expected: 08/28/2022 (Approximate), Expires: 07/26/2023 Start: 08-28-2022 End: 07-26-2023 PROTEIN ELECTROPHORESIS SERUM W/INTERP PROTEIN ELECTROPHORESIS SERUM W/INTERP Lab Routine Megaloblastic anemia due to vitamin B12 deficiency Elevated sed rate High total serum IgM Chronic fatigue and malaise Expected: 08/28/2022 (Approximate), Expires: 07/26/2023 [facility] Work Phone: Comment on above: Expected: 08/28/2022 (Approximate), Expires: 07/26/2023 Start: 08-28-2022 End: 07-26-2023 Urate [Mass/volume] in Serum or Plasma URIC ACID BLOOD Lab Routine Megaloblastic anemia due to vitamin B12 deficiency Elevated sed rate High total serum IgM Chronic fatigue and malaise Expected: 08/28/2022 (Approximate), Expires: 07/26/2023 [facility] Work Phone: Comment on above: Expected: 08/28/2022 (Approximate), Expires: 07/26/2023 Start: 07-15-2022 End: 05-20-2023 [id number] [Mass/volume] in Serum or Plasma B2 MICROGLOBULIN B Lab Routine High total serum IgM Expected: 07/15/2022 (Approximate), Expires: 05/20/2023 [facility] Work Phone: Comment on above: Expected: 07/15/2022 (Approximate), Expires: 05/20/2023 Start: 07-15-2022 End: 05-20-2023 Calcium.ionized [Moles/volume] in Blood CALCIUM IONIZED BLOOD Lab Routine High total serum IgM Expected: 07/15/2022 (Approximate), Expires: 05/20/2023 [facility] Work Phone: Comment on above: Expected: 07/15/2022 (Approximate), Expires: 05/20/2023 Start: 07-15-2022 End: 05-20-2023 CBC W Auto Differential panel - Blood CBC + DIFF Lab Routine High total serum IgM Expected: 07/15/2022 (Approximate), Expires: 05/20/2023 [facility] Work Phone: Comment on above: Expected: 07/15/2022 (Approximate), Expires: 05/20/2023 Start: 07-15-2022 End: 05-20-2023 Comprehensive metabolic 2000 panel - Serum or Plasma COMP METABOLIC PANEL Lab Routine High total serum IgM Expected: 07/15/2022 (Approximate), Expires: 05/20/2023 [facility] Work Phone: Comment on above: Expected: 07/15/2022 (Approximate), Expires: 05/20/2023 Start: 07-15-2022 End: 09-14-2022 KAPPA/FARMER,FREE,SER KAPPA/FARMER,FREE,SER Lab Routine High total serum IgM Expected: 07/15/2022 (Approximate), Expires: 09/14/2022 [facility] Work Phone: Comment on above: Expected: 07/15/2022 (Approximate), Expires: 09/14/2022 Start: 07-15-2022 End: 05-20-2023 Lactate dehydrogenase [Enzymatic activity/volume] in Serum or Plasma LD LACTATE DEHYDRO Lab Routine High total serum IgM Expected: 07/15/2022 (Approximate), Expires: 05/20/2023 [facility] Work Phone: Comment on above: Expected: 07/15/2022 (Approximate), Expires: 05/20/2023 Start: 07-15-2022 End: 05-20-2023 MONOCLONAL PROTEIN, SERUM (BLOOD) MONOCLONAL PROTEIN, SERUM (BLOOD) Lab Routine High total serum IgM Expected: 07/15/2022 (Approximate), Expires: 05/20/2023 [facility] Work Phone: Comment on above: Expected: 07/15/2022 (Approximate), Expires: 05/20/2023 Start: 07-15-2022 End: 05-20-2023 Phosphate [Mass/volume] in Serum or Plasma PHOSPHORUS INORGANIC Lab Routine High total serum IgM Expected: 07/15/2022 (Approximate), Expires: 05/20/2023 [facility] Work Phone: Comment on above: Expected: 07/15/2022 (Approximate), Expires: 05/20/2023 Start: 07-15-2022 End: 05-20-2023 PROTEIN ELECTROPHORESIS SERUM W/INTERP PROTEIN ELECTROPHORESIS SERUM W/INTERP Lab Routine High total serum IgM Expected: 07/15/2022 (Approximate), Expires: 05/20/2023 [facility] Work Phone: Comment on above: Expected: 07/15/2022 (Approximate), Expires: 05/20/2023 Start: 07-15-2022 End: 05-20-2023 Urate [Mass/volume] in Serum or Plasma URIC ACID BLOOD Lab Routine High total serum IgM Expected: 07/15/2022 (Approximate), Expires: 05/20/2023 [facility] Work Phone: Comment on above: Expected: 07/15/2022 (Approximate), Expires: 05/20/2023 Start: 06-05-2022 End: 03-05-2023 25-hydroxyvitamin D3 [Mass/volume] in Serum or Plasma VITAMIN D 25 HYDROXY Lab Routine Vitamin D deficiency Expected: 06/05/2022 (Approximate), Expires: 03/05/2023 [facility] Work Phone: Comment on above: Expected: 06/05/2022 (Approximate), Expires: 03/05/2023 Start: 06-05-2022 End: 03-05-2023 C reactive protein [Mass/volume] in Serum or Plasma C-REACTIVE PROTEIN (CRP) Lab Routine Elevated sed rate Elevated C-reactive protein (CRP) Expected: 06/05/2022 (Approximate), Expires: 03/05/2023 [facility] Work Phone: Comment on above: Expected: 06/05/2022 (Approximate), Expires: 03/05/2023 Start: 06-05-2022 End: 03-05-2023 Cobalamin (Vitamin B12) [Mass/volume] in Serum or Plasma VITAMIN B12 BLOOD Lab Routine Vitamin B12 deficiency Expected: 06/05/2022 (Approximate), Expires: 03/05/2023 [facility] Work Phone: Comment on above: Expected: 06/05/2022 (Approximate), Expires: 03/05/2023 Start: 06-05-2022 End: 03-05-2023 Erythrocyte sedimentation rate SED RATE WESTERGREN Lab Routine Elevated sed rate Elevated C-reactive protein (CRP) Expected: 06/05/2022 (Approximate), Expires: 03/05/2023 [facility] Work Phone: Comment on above: Expected: 06/05/2022 (Approximate), Expires: 03/05/2023 Start: 05-06-2022 End: 03-18-2023 [id number] [Mass/volume] in Serum or Plasma B2 MICROGLOBULIN B Lab Routine Megaloblastic anemia due to vitamin B12 deficiency High total serum IgM Expected: 05/06/2022 (Approximate), Expires: 03/18/2023 [facility] Work Phone: Comment on above: Expected: 05/06/2022 (Approximate), Expires: 03/18/2023 Start: 05-06-2022 End: 03-18-2023 Calcium.ionized [Moles/volume] in Blood CALCIUM IONIZED BLOOD Lab Routine Megaloblastic anemia due to vitamin B12 deficiency High total serum IgM Expected: 05/06/2022 (Approximate), Expires: 03/18/2023 [facility] Work Phone: Comment on above: Expected: 05/06/2022 (Approximate), Expires: 03/18/2023 Start: 05-06-2022 End: 03-18-2023 CBC W Auto Differential panel - Blood CBC + DIFF Lab Routine Megaloblastic anemia due to vitamin B12 deficiency High total serum IgM Expected: 05/06/2022 (Approximate), Expires: 03/18/2023 [facility] Work Phone: Comment on above: Expected: 05/06/2022 (Approximate), Expires: 03/18/2023 Start: 05-06-2022 End: 03-18-2023 Comprehensive metabolic 2000 panel - Serum or Plasma COMP METABOLIC PANEL Lab Routine Megaloblastic anemia due to vitamin B12 deficiency High total serum IgM Expected: 05/06/2022 (Approximate), Expires: 03/18/2023 [facility] Work Phone: Comment on above: Expected: 05/06/2022 (Approximate), Expires: 03/18/2023 Start: 05-06-2022 End: 03-18-2023 Ferritin [Mass/volume] in Serum or Plasma FERRITIN BLD Lab Routine Megaloblastic anemia due to vitamin B12 deficiency High total serum IgM Expected: 05/06/2022 (Approximate), Expires: 03/18/2023 [facility] Work Phone: Comment on above: Expected: 05/06/2022 (Approximate), Expires: 03/18/2023 Start: 05-06-2022 End: 03-18-2023 Iron and Iron binding capacity panel - Serum or Plasma IRON + TIBC Lab Routine Megaloblastic anemia due to vitamin B12 deficiency High total serum IgM Expected: 05/06/2022 (Approximate), Expires: 03/18/2023 [facility] Work Phone: Comment on above: Expected: 05/06/2022 (Approximate), Expires: 03/18/2023 Start: 05-06-2022 End: 03-18-2023 Lactate dehydrogenase [Enzymatic activity/volume] in Serum or Plasma LD LACTATE DEHYDRO Lab Routine Megaloblastic anemia due to vitamin B12 deficiency High total serum IgM Expected: 05/06/2022 (Approximate), Expires: 03/18/2023 [facility] Work Phone: Comment on above: Expected: 05/06/2022 (Approximate), Expires: 03/18/2023 Start: 05-06-2022 End: 03-18-2023 MONOCLONAL PROTEIN, SERUM (BLOOD) MONOCLONAL PROTEIN, SERUM (BLOOD) Lab Routine Megaloblastic anemia due to vitamin B12 deficiency High total serum IgM Expected: 05/06/2022 (Approximate), Expires: 03/18/2023 [facility] Work Phone: Comment on above: Expected: 05/06/2022 (Approximate), Expires: 03/18/2023 Start: 05-06-2022 End: 03-18-2023 Phosphate [Mass/volume] in Serum or Plasma PHOSPHORUS INORGANIC Lab Routine Megaloblastic anemia due to vitamin B12 deficiency High total serum IgM Expected: 05/06/2022 (Approximate), Expires: 03/18/2023 [facility] Work Phone: Comment on above: Expected: 05/06/2022 (Approximate), Expires: 03/18/2023 Start: 05-06-2022 End: 03-18-2023 PROTEIN ELECTROPHORESIS SERUM W/INTERP PROTEIN ELECTROPHORESIS SERUM W/INTERP Lab Routine Megaloblastic anemia due to vitamin B12 deficiency High total serum IgM Expected: 05/06/2022 (Approximate), Expires: 03/18/2023 [facility] Work Phone: Comment on above: Expected: 05/06/2022 (Approximate), Expires: 03/18/2023 Start: 05-06-2022 End: 03-18-2023 Urate [Mass/volume] in Serum or Plasma URIC ACID BLOOD Lab Routine Megaloblastic anemia due to vitamin B12 deficiency High total serum IgM Expected: 05/06/2022 (Approximate), Expires: 03/18/2023 [facility] Work Phone: Comment on above: Expected: 05/06/2022 (Approximate), Expires: 03/18/2023 Start: 04-05-2022 COVID-19 VACCINE (5 - Pfizer risk series) COVID-19 VACCINE (5 - Pfizer risk series) [facility] Start: 03-09-2022 End: 05-09-2022 Hemoglobin A1c in Blood HGB A1C Lab Routine Elevated glucose Expected: 03/09/2022, Expires: 05/09/2022 [facility] Work Phone: Comment on above: Expected: 03/09/2022 , Expires: 05/09/2022 Start: 02-24-2022 End: 04-26-2022 BARTONELLA AB PANEL BARTONELLA AB PANEL Lab Routine Swelling of lymph nodes Expected: 02/24/2022, Expires: 04/26/2022 [facility] Work Phone: Comment on above: Expected: 02/24/2022 , Expires: 04/26/2022 Start: 02-24-2022 End: 04-26-2022 BRUCELLA AB TOTAL BRUCELLA AB TOTAL Lab Routine Swelling of lymph nodes Expected: 02/24/2022, Expires: 04/26/2022 [facility] Work Phone: Comment on above: Expected: 02/24/2022 , Expires: 04/26/2022 Start: 02-24-2022 End: 04-26-2022 Cryptococcus sp Ag [Presence] in Unspecified specimen by Latex agglutination CRYPTOCOCCUS AG DET Microbiology Routine Swelling of lymph nodes Expected: 02/24/2022, Expires: 04/26/2022 [facility] Work Phone: Comment on above: Expected: 02/24/2022 , Expires: 04/26/2022 Start: 02-24-2022 End: 04-26-2022 HISTOPLASMA AG URINE HISTOPLASMA AG URINE Lab Routine Swelling of lymph nodes Expected: 02/24/2022, Expires: 04/26/2022 [facility] Work Phone: Comment on above: Expected: 02/24/2022 , Expires: 04/26/2022 Start: 02-24-2022 End: 04-26-2022 HIV 1 RNA [#/volume] (viral load) in Serum or Plasma by YESSI with probe detection HIV RNA VIRAL LOAD Lab Routine Swelling of lymph nodes Expected: 02/24/2022, Expires: 04/26/2022 [facility] Work Phone: Comment on above: Expected: 02/24/2022 , Expires: 04/26/2022 Start: 02-24-2022 End: 04-26-2022 SYPHILIS TOTAL W/REFLEX SYPHILIS TOTAL W/REFLEX Lab Routine Swelling of lymph nodes Expected: 02/24/2022, Expires: 04/26/2022 [facility] Work Phone: Comment on above: Expected: 02/24/2022 , Expires: 04/26/2022 Start: 01-22-2022 Influenza vaccination [facility] Start: 08-24-2021 COVID-19 VACCINE (4 - Booster for Pfizer series) COVID-19 VACCINE (4 - Booster for Pfizer series) [facility] Start: 01-22-2021 Influenza vaccination Flu vacc ine (Season Ended) [facility] Work Phone: Start: 2020 Lipid panel Lipid screen [facility] Work Phone: Start: 2020 Mammography [facility] Start: 2020 Screening for malign ant neoplasm of breast [facility] Start: 2010 HPV TESTING HPV TESTING [facility] Start: 2010 Screening for malign ant neoplasm of cervix [facility] Start: 2002 DTaP/Tdap/Td Vaccine s (1 - Tdap) DTaP/Tdap/Td Vaccines (1 - Tdap) [facility] Start: 2001 PAP TESTING PAP TESTING [facility] Start: 2001 Screening for malign ant neoplasm of cervix [facility] Start: 10-05-1999 DTaP/Tdap/Td vaccine (1 - Tdap) DTaP/Tdap/Td vaccine (1 - Tdap) [facility] Work Phone: Start: 10-05-1999 SHINGRIX VACCINE (1 of 2) SHINGRIX VACCINE (1 of 2) [facility] Start: 10-05-1999 Urine microalbumin profile [facility] Start: 10-05-1999 Zoster Vaccines (1 of 2) Zoster Vacc aston (1 of 2) [facility] Start: 1998 Hepatitis C screening Hepatitis C [facility] Start: 1998 HIV SCREENING HIV SCREENING [facility] Start: 1998 HIV screening HIV Screening [facility] Start: 10-05-1995 HIV screening HIV screen Lety [facility] Work Phone: Start: 1992 COVID-19 Vaccine (1) COVID-19 Vaccin e (1) [facility] Work Phone: Start: 1986 PNEUMOCOCCAL (1 - PCV) PNEUMOCOCCAL (1 - PCV) [facility] Start: 1986 Pneumococcal vaccination [facility] Start: 1986 Pneumococcal Vaccine : Pediatrics (0 to 5 Years) and At-Risk Patients (6 to 64 Years) (1 - PCV) Pneumococcal Vaccine: Pediatrics (0 to 5 Years) and At-Risk Patients (6 to 64 Years) (1 - PCV) [facility] Start: 1981 MMR Vaccines (1 of 1 - Standard series) MMR Vaccines (1 of 1 - Standard series) [facility] Start: 1981 Varicella vaccination Varicell a Vaccines (1 of 2 - 2-dose childhood series) [facility] Start: 1981 Varicella vaccine (1 of 2 - 2-dose childhood series) Varicella vaccine (1 of 2 - 2-dose childhood series) [facility] Phone: Start: 1980 HEPATITIS B (1 of 3 - 3-dose series) HEPATITIS B (1 of 3 - 3-dose series) [facility] Start: 1980 Hepatitis B Vaccine (1 of 3 - 3-dose series) Hepatitis B Vaccine (1 of 3 - 3-dose series) [facility] Start: 1980 Hepatitis B Vaccines (1 of 3 - 3-dose series) Hepatitis B Vaccines (1 of 3 - 3-dose series) [facility] Start: 1980 Hepatitis C screening Hepatitis C sc reen [facility] Phone: Start: 1980 HIV screening HIV Screening [facility] Start: 1980 Lipid panel Lipid Panel [facility] Start: 1980 Screening for osteoporosis Bone Density Scan [facility] Start: 1980 Yearly Adult Physical Yearly Adult P hysical [facility] Cardiovascular funct ion eval w/tilt table w/mntr TILT TABLE EVALUATION Cardiology Routine POTS (postural orthostatic tachycardia syndrome) Ordered: 03/09/2022 [facility] Work Phone: Comment on above: Ordered: 03/09/2022 End: 03-05-2024 DXA-AXIAL SKELETON DXA-AXIAL SKELETON Radiology Routine Steroid-induced osteoporosis 1 Occurrences starting 02/04/2023 until 03/05/2024 [facility] Work Phone: Comment on above: 1 Occurrences starti ng 02/04/2023 until 03/05/2024 End: 03-05-2024 DXA-FOREARM SKELETON DXA-FOREARM SKELETON Radiology Routine Steroid-induced osteoporosis 1 Occurrences starting 02/04/2023 until 03/05/2024 [facility] Work Phone: Comment on above: 1 Occurrences starti ng 02/04/2023 until 03/05/2024 ECG 12 Lead ECG 12 Lead ECG Routine Irregular heart rate 06/09/2023 8:28 AM EST [facility] Work Phone: End: 03-09-2023 HOME SLEEP APNEA TEST (HSAT) HOME SLEEP APNEA TEST (HSAT) Procedures Routine Somnolence, daytime Snoring 1 Occurrences starting 03/09/2022 until 03/09/2023 [facility] Work Phone: Comment on above: 1 Occurrences starti ng 03/09/2022 until 03/09/2023 Oxygen therapy [[facility] Data Set] Initiate Oxygen Therapy Protocol Respiratory Care Routine Daily until discontinued starting 10/07/2020 [facility] Work Phone: Comment on above: Daily until disconti nued starting 10/07/2020 End: 03-04-2023 Polysomnogram POLYSOMNOGRAM (PSG) Procedures Routine Somnolence, daytime Snoring 1 Occurrences starting 03/04/2022 until 03/04/2023 [facility] Work Phone: Comment on above: 1 Occurrences starti ng 03/04/2022 until 03/04/2023 [facility] Immunizations Immunization Date Immunization Notes Care Provider Reginaldo mcginnis 02-23-2023 COVID-19 vaccine, ag e 12+ yr, season (PFIZER-BIONTECH) Lynne Ni MD Work Phone: [facility] Payers Date Payer Category Payer Self-pay 2017 Unknown HAYLEY LEGER [id number] 2017-Present [address] [place] [address] [id number] 2009 Medicaid [employer] [id number] 2009-Present [phone] [address] [place] [address] Medicaid [id number] 2009 Medicaid [id number]. [id number] 1980 Unknown [id number] [id number]5 1980 Unknown [id number] 2.16.840.1.807160.3.579.2.175 1980 Unknown [id number] 2.16.840.1.934549.3.579.2.593 1980 Unknown [id number] 2.16.840.1.805252.3.579.2.593 1980 Unknown [id number] 2.16.840.1.082273.3.579.2.593 1980 Unknown [id number] 2.16.840.1.283430.3.579.2.593 1980 Unknown [id number] 2.16.840.1.398283.3.579.2.593 1980 Unknown [id number] 2.16.840.1.955533.3.579.2.593 1980 Unknown [id number] 2.16.840.1.083846.3.579.2.593 1980 Unknown [id number] 2.16.840.1.419329.3.579.2.593 1980 Unknown [id number] 2.16.840.1.833309.3.579.2.593 1980 Unknown [id number] 2.16.840.1.164257.3.579.2.593 1980 Unknown [id number] 2.16.840.1.475519.3.579.2.1244 1980 Unknown [id number] 2.16.840.1.409727.3.579.2.1259 1980 Unknown [id number] 2.16.840.1.900443.3.579.2.1259 1980 Unknown [id number] 2.16.840.1.768803.3.579.2.1259 1980 Unknown [id number] 2.16.840.1.879891.3.579.2.1259 1980 Unknown [id number] 2.16.840.1.359745.3.579.2.1259 1959 Unknown [id number] 1959 Unknown [id number] Unknown [id number] 2.16.840.1.138422.3.579.2.531 Social History Date Type Detail Facility Start: 10-07-2020 End: 04-20-2023 Tobacco smoking status RIIS Current every day smoker [facility] Start: 10-07-2020 End: 04-20-2023 Tobacco use and exposure Never used [employer] Start: 10-07-2020 End: 07-06-2023 Alcohol intake Lifetime non-drinker (finding) [facility] Phone: Start: 10-07-2020 History SDOH Alcohol Frequency 1 [facility] Phone: Start: 1980 Sex Assigned At Not on file [facility] Phone: Start: 02-22-2022 End: 06-09-2023 Exposure to SARS-CoV-2 (event) Not sure [facility] History of tobacco use Cigarette Smoker [facility] Start: 05-31-2014 End: 07-06-2023 Cigarettes smoked current (pack per day) - Reported 1 [facility] Start: 10-24-2021 End: 04-26-2023 Alcohol intake Current non-drinker of alcohol (finding) [facility] Start: 10-14-2021 End: 10-24-2021 Exposure to SARS-CoV-2 (event) Unable to assess [facility] Start: 10-22-2022 End: 07-06-2023 Sex Assigned At [facility] Adult Depression Screening Assessment 1 [facility] Start: 10-19-2022 Tobacco Comment Current smoker , everyday, 11-20 cigarettes/day [facility] Start: 05-31-2023 Alcohol Comment Caffeine intak e : > 4 cups per day [facility] Clinical Notes 05-31-2014 to 07-06-2023 Juan Luis Richardson MD - 07/06/2023 2:30 PM ESTCarol Surya Britton APRN-SUBSTATION OPERATOR AUTOMATIC - 06/09/2023 8:30 AM ESTPatient Christie Mcclendon [...] , Rfl: ergocalciferol (Vitamin D2) 1.25 MG (17041 UT) capsule, Take 50,000 Units by mouth [...] Chronic laryngopharyngitis COVID-19 vaccine administered x 2 ([employer]) History of removal of cyst 2013 tailbone [...] reflexes: Stu's absent. Ankle clonus absent. Coordination Yhhrlz-ln-binr, rapid alternating movements and intx-kx-jzfm normal bilaterally without dysmetria. Gait Normal casual, toe, heel and tandem gait. Romberg is absent. Assessment/Plan Diagnoses and all orders for this visit: Autoimmune disease (CMS/[facility]) - Protein electrophoresis, serum; Future - Protein [...] for 10 days. documented in this encounter [facility] 06-15-2023 Note [facility] 06-10-2023 Note [facility] 06-09-2023 History of Present illness Narrative Jones Haley is a 42 y.o. female that presents to the office today for new patient evaluation as self referral for palpitations and elevated heart rates. She has a PMH of HTN, HLD, tachycardia, anemia, JOSE RAFAEL with CPAP compliance, lupus, autonomic dysfunction, arthritis, chronic back pain. She has undergone cardiac workup in the past in [place] as noted below. She also states that she follows with Neurology for possible POTS syndrome. Admits to daily tobacco use, 1 pack of cigarettes per day. Denies vaping, ETOH, recreational drugs. Admits to drinking approximately 1 pot of coffee per day. Denies daily exercise. 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 She is in a [employer] and has children. Family history negative for [...] Anemia, unspecified Anxiety Autonomic dysfunction Depression, recurrent (CMS/[facility]) Discoid lupus erythematosus Chronic bilateral low back [...] , Rfl: ergocalciferol (Vitamin D-2) 1.25 MG (88651 UT) capsule, Take 1 capsule (50,000 Units) [...] Anemia, unspecified Anxiety Autonomic dysfunction Depression, recurrent ([facility]) Discoid lupus erythematosus Chronic bilateral low back pain with bilateral sciatica Hyperlipidemia Obesity, Class III, BMI 40-49.9 (morbid obesity) ([facility]/HCC) Obstructive sleep apnea syndrome Arthritis Tachycardia Vitamin [...] prepare this document. documented in this encounter [facility] Work Phone: 06-01-2023 Note [facility] 05-26-2023 Note [facility] 05-26-2023 Instructions Christie Phan MD - 05/26/2023 5:43 PM EST Images from the original note were not included. https://Viewex/tofu-bolognese/ https://nutritionstudies.org/how- jw-xtaacoqau-nyrrvyve-to-adopt-a- htujg-ujyo-onafk-based-lifestyle/ https://www.ClearSaleing /blog/plantbasedkids https://[employer] CRM/randee vp-zaetb-nyul-for-kids/ https://FloorPrep Solutions/how-to- nsgmpvrcbj-dzhz-nlpm-lm-o-nkvfi-b ased-diet/ WHAT TO EAT? Breakfast: Overnight Oats [...] oatmeal. Can also make in the crockpot. [place] muffin/almond butter topped with fresh berries [place] muffin, cooked egg/egg white, tomato, thin slice tongan cheese Fresh berries, hard boiled egg, whole wheat toast Plain yogurt topped with berries, unsalted nuts, drizzle of honey Whole grain toast/[place] muffin topped with mashed avocado and tomatoes Lunch: Dinner leftovers packed in Tupperware, side of fruit Salad mixture topped with a protein (chick breast/tuna/hard boiled egg/beans), dressing and side of fruit Dinner - Refer to plate nurse discharge planner pictures to help select foods and portion ratios of protein, vegetables/starches. Keep it simple and rotate your favorite meals. Sheet nix meals Soups Grilled protein/vegetables/side of starch (plate nurse discharge planner picture) Stir can with protein, mixed vegetables, and riced cauliflower or portion controlled whole grain rice. Make your own bowls - Chinese/Dutch/ theme [place] with Zoodles (spiralized vegetable noodles). Roasted vegetable wraps Alter traditional recipes to reflect HIGH QUALITY ingredients in the right QUANTITIES. Snacks - portion controlled: Raw veggies (can have with hummus, mashed avocado, salsa). Unsalted nuts Fruit (1 serving). (optional side of peanut butter) Air pop popcorn [place] and low fat tongan cheese rolled up String cheese Protein balls (mix rolled oats, nut butter, flax seeds, dash almond milk). Beverages: Water Coffee, Hot tea Unsweetened ice tea EATING OUT: Research menu online, include nutritional information. Make your order decision before getting to restaurant. Stick to recommended portions (plate nurse discharge planner picture). Ask for substitutions or modifications. [...] baked potato, sprouted grain bread, chick peas https://www.[employer].com/articl e/6734952/yfhulzauaukgj-weva-ddju -for-beginners/ https://www.eatingTravelShark.com/catego ry/4274/vpidbslcfjltz-vtug-kaenex / https://www.eatingTravelShark.com/catego ry/4300/aykznsvrhvdmj-hrqn-swix-p lans/ My current favorite cookbooks are documented in this encounter [facility] 05-26-2023 History of Present illness Narrative Images from the original note were not included. [facility] Follow-Up Appointment [...] refer to nutrition to work towards a [facility] diet Plan Diagnoses and all orders [...] the date of the service which included hhps-na-ddbp patient care, completing clinical documentation, performing a medically appropriate examination, counseling and educating the patient/family/caregiver, and ordering medications, tests, or procedures. Christie Phan MD, MA, [facility] Lifestyle Medicine Specialist documented in this encounter [facility] 05-19-2023 Note [facility] 04-26-2023 Note [facility] 04-26-2023 Miscellaneous Notes Medication pending with new pharmacy information. documented in this encounter [facility] 04-26-2023 History of Present illness Narrative Images from the original note were not included. [facility] Virtual Follow-Up [...] the date of the service which included mint-yx-ebuq patient care, completing clinical documentation, performing a medically appropriate examination, counseling and educating the patient/family/caregiver, and ordering medications, tests, or procedures. I have communicated my name and active licensure. The patient's identity and physical location were verified at the time of this visit. Either the patient or their legal tax representative has been informed of the risks and benefits of -- and alternatives to -- treatment through a remote evaluation and consents to proceed with the evaluation remotely. Christie Phan MD, MA, [facility] Lifestyle Medicine Specialist documented in this encounter [facility] 04-26-2023 Note [facility] 04-26-2023 Nurse Note Spoke to Jones Haley, confirmed patient is registered on [employer] and is prepared for their appointment. Confirmed the patient has updated medications, allergies, and questionnaires via [employer] Informed patient if there is an issue with the connection, provider will send the patient a secure link. If provider is running late, patient should remain connected to the visit. Patient verbalized understanding. documented in this encounter [facility] 04-22-2023 Miscellaneous Notes Pt called for Iron results; possible need for transfusion. Pt aware no need for iron infusion at this time. Enma Hamm RN documented in this encounter [facility] 04-16-2023 Note [facility] 04-16-2023 Note HNO ID: [id number] Author: Kenzie Shannon Service: ? Author Type: ? Type: Progress Notes Filed: 04/16/2023 11:10 AM Note Text: Patient Identification confirmed: yes. Injection given and documented on MAR per provider order. Kenzie Shannon [facility] 04-16-2023 History of Present illness Narrative Patient Identification confirmed: yes. Injection given and documented on MAR per provider order. Kenzie Shannon documented in this encounter [facility] 04-01-2023 Note [facility] 03-19-2023 Note HNO ID: [id number] Author: Kenzie Shannon Service: ? Author Type: ? Type: Progress Notes Filed: 03/19/2023 11:22 AM Note Text: Patient Identification confirmed: yes. Injection given and documented on MAR per provider order. Kenzie Shannon [facility] 03-19-2023 History of Present illness Narrative Patient Identification confirmed: yes. Injection given and documented on MAR per provider order. Kenzie Shannon documented in this encounter [facility] 03-16-2023 Note [facility] 03-16-2023 History of Present illness Narrative CMN RECEIVED BY Bubbli [facility] VIA FAX, COMPLETED, AND PLACED IN PROVIDER MAILBOX FOR SIGNATURE On March 16, 2023 By Marija Ziegler Building Construction Estimator [employer]. [employer] SENDING CMN: JOSH SIGNED AND DATED CMN, FAXED TO DME & CONFIRMATION PAGE RECEIVED: 03.24.23 documented in this encounter [facility] 03-11-2023 Note [facility] 03-11-2023 History of Present illness Narrative AMBULATORY [...] In Department: RHEUMATOLOGY documented in this encounter [facility] 03-10-2023 Miscellaneous Notes Spoke with patient. We stopped her trulicity because of side effects. She only took the cymbalta for a week. She will restart and we will see how she is doing in 2 months. Have also ordered insulin labs to check for insulin resistance. documented in this encounter [facility] 03-01-2023 Miscellaneous Notes For chart: Eye exam 02/26/23 no ocular complication related to medication. [facility] exam from [facility] Placed on your desk for review. documented in this encounter [facility] 02-19-2023 Note [facility] 02-19-2023 Nurse Note Patient Identification confirmed: yes. Injection given and documented on JUL per provider order. Radha Schofield MA documented in this encounter [facility] 02-19-2023 Instructions Jose Najera MD - 02/19/2023 11:40 AM EDT B12 shot today and every 4 weeks. Continue Folic acid. Follow up in 8 Weeks - labs 1 week before. documented in this encounter [facility] 02-19-2023 History of Present illness Narrative Images from the original note were not included. AMBULATORY TELEPHONE VISIT Jones Haley has consented to this telephone encounter. Persons Present: Patient and myself Chief Complaint/Reason: Anemia; To review recent blood work. HPI: Total Time Spent: 21 minutes Wilmer Driver APRN.SUBSTATION OPERATOR AUTOMATIC NAME: Jones Haley CLINIC NO.: [id number] DATE OF SERVICE: February 19, 2023 (Marquis) [...] lower lip done 2 days ago at [facility] - awaiting results. B12 helps especially at [...] there. Updated Visit, August 27, 2022: Jones Melissa Branchfrancisco javier returns for follow-up and B12 injection. She has missed a few B12 injections. She follows with multiple doctors including and dumbwaiter operator, cutting machine tender decorative, inspector line and PCP. She has been told they [...] decreasing. Initial Visit, March 04, 2022: Jones Torres Jose Carlosfrancisco javier presents today Hematology and Oncology evaluation. She [...] which included preparing to see the patient, fkhw-tv-ixob patient care, completing clinical documentation, performing a medically appropriate examination, counseling and educating the patient/family/caregiver, ordering medications, tests, or procedures, and independently interpreting results (not separately reported). Jose Najera MD, CPE Hematology and Oncology Services Provided at: [place], [place] CC: Madelaine Ferris MD [address] [facility] [address] documented in this encounter [facility] 02-16-2023 Miscellaneous Notes Notify patient [...] Department RAYRAY INJECTION TEACHING 03/11/2023 7:30 AM [facility] ME[facility] VIDEO SPEC EST 08/12/2023 9:00 AM [facility] Last Ophthalmology Check for Plaquenil (Hydroxychloroquine) [...] MD Assoc. diagnoses: Elevated LFTs CBC [SQCBC] 12/08/1301/25/24 01/24/23 Auth. provider: Lynne Ni MD Assoc. [...] Vitamin D deficiency documented in this encounter [facility] 02-08-2023 Miscellaneous Notes Spoke with patient Will get labs done when she does labs in Dec for Dre/Onc Mailed orders for DXA to pt so she can go to [facility] Pre cert Benlyst Scheduled Teaching visit for 4 weeks out to give time for ins and to receive medication. Will edison if not auth or received Scheduled [address] Ni in 6 mo Mirela Carlos February 08, 2023 11:15 AM Please call and schedule nonfasting labs 04/2023 Due for bone mineral density (1st time) patient requests order for [place] Please schedule follow up office visit for [...] Lynne Ni MD documented in this encounter [facility] 02-04-2023 Note [facility] 02-04-2023 Note [facility] 02-04-2023 Note [facility] 02-04-2023 Note [facility] 02-04-2023 Note [facility] 02-04-2023 History of Present illness Narrative [facility] received prescription(s) for Benlysta from Dr. Ni. Benefits investigation was conducted, indicating that a prior authorization is required by patients plan with [facility]. Encounter will be updated once prior authorization has been submitted by [facility]. Carlene Rendon CPhT [facility], Inflammatory P: [phone] F: [phone] documented in this encounter [facility] 02-04-2023 History of Present illness Narrative THIS [...] visit. Either the patient or their legal tax representative has been informed of the risks and benefits of -- and alternatives to -- treatment through a remote evaluation and consents to proceed with the evaluation remotely. It required patient-provider interaction for the medical decision making as documented below. Persons Present: self (in home) Provider: (in office) VIRTUAL VISIT Follow up for:osteoarthritis/low vitamin D/b12/ +HCRISTIAN/high esr/+tumid lupus biopsy Today's visit 02/04/23:due for [...] neurology/on metoprolol for POTs, avoid aggravating triggers, jail pain recommendations per primary care provider/pain clinic/patient [...] in flares, better with steroids. Reports pain 6/10. minimal AM stiffness. COVID vaccine 09/28/20, , [...] Due for eye exam. Labs sent to [facility]/completed in 06/2021 (no results faxed to office, [...] pain: yes H/o precedent/frequent infection(s): as above Enthesopathy/Franklin's/heel/plant ar tenderness: hands random painful/tingling Skin thickening, [...] COVID-19 original vaccine, age 12+ yr, monovalent (Veosearch - PURPLE TOP) 09/28/2020 10/19/2020 05/26/2021 COVID-19 vaccine, age 12+ yr, bivalent (Veosearch) 02/08/2022 Pneumovax no Flu shot no Tetanus [...] (33);NL cbc, cmp, negative hla b27; Outside [place] 06/2021 low vitamin D 16, vitamin b12-307;high [...] calcifications or tophi. 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 RECOMMENDATION/PLAN: [facility] on 02/04/23 DXA-AXIAL SKELETON DXA-FOREARM SKELETON Reviewed [...] (200mg) daily with a meal Please see dry transfer man every 6-12months while on Hydroxychloroquine. Start 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 [...] touching your toes, sit-ups, using row machine jail pain recommendations per primary care provider/pain clinic [...] video & audio (virtual) or phone or gatw-ur-igaf patient care, completing clinical documentation, obtaining and/or [...] letter/electronic shared medical records. cc Gay Enciso CNP;MD MUMTAZ MariaDIGNITY HEALTH ST[facility] CENTERAnahi AMBULATORY VISIT INTAKE QUESTIONNAIRE Question 02/02/2023 10:32 [...] Workers' Compensation? No Do you need an statistical modeler? No [facility] ZOOM MESSAGE Question 02/02/2023 10:32 PM EDT [...] of Right Forearm or Lower Left Leg. [facility] [place] PROMIS 10 ADULT SHORT FORM V1.0 GLOBAL [...] or = 5) documented in this encounter [facility] 02-04-2023 Instructions Lynne Ni MD [...] (200mg) daily with a meal Please see dry transfer man every 6-12months while on Hydroxychloroquine. 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 documented in this encounter [facility] 01-26-2023 Miscellaneous Notes patient has viewed the [place] message per [employer]. Please Call patient if [employer] note not read to review results/released to My Chart if tests completed at [facility]: mildly high normal wbc- will monitor. [...] Lynne Ni MD documented in this encounter [facility] 01-22-2023 Nurse Note Patient Identification confirmed: yes. Injection given and documented on JUL per provider order. Radha Schofield MA documented in this encounter [facility] 01-12-2023 Miscellaneous Notes Patient needs appointment before I can refill. Patient's request for medication is as follows: Requested Prescriptions Pending Prescriptions Disp Refills dulaglutide (TRULICITY) 1.5 mg/0.5 mL pen injector 2 mL 0 Sig: Inject 1.5 mg subcutaneously one time a week. Please approve the above prescription(s) to electronically send to [facility] pharmacy. Milagro Mendiola MA documented in this encounter [facility] 01-01-2023 Note [facility] 01-01-2023 History of Present illness Narrative VIRTUAL VISIT PROGRESS NOTE This is a virtual visit using [employer] video visit. It required patient-provider interaction for the medical decision making as documented below. I have communicated my name and active licensure. The patient's identity and physical location were verified at the time of this visit. Either the patient or their legal tax representative has been informed of the risks [...] otitis or sinusitis No pneumonia She sees cutting machine tender decorative and was diagnosed with lupus She is on Plaquenil, 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 Prednisone 10mg once daily for the past year; every few months she gets treated with higher doses of prednisone for flares of her symptoms The medications seem to help the body aches She saw the basket bottom machine operator Treated with B12 and folic acid We [...] Misty Nelson MD documented in this encounter [facility] 12-18-2022 Note [facility] 12-18-2022 Miscellaneous Notes Spoke with patient this morning, 12/18/2022. Wimler Driver APRN.TRUE Pt called chain maker loom control service last evening stating she was suppose to have a phone call with Wilmer at 330 and never received a call. Pt is still waiting (536 pm 12/17/22). Please advise Lidia Argueta RN documented in this encounter [facility] 12-18-2022 History of Present illness Narrative Images [...] Total Time Spent: 21 minutes Wilmer Driver APRN.SUBSTATION OPERATOR AUTOMATIC NAME: Jones Haley CLINIC NO.: [id number] DATE OF SERVICE: October 22, 2022 (Marquis) [...] lower lip done 2 days ago at [facility] - awaiting results. B12 helps especially at [...] there. Updated Visit, August 27, 2022: Jones Torres hugo returns for follow-up and B12 injection. She has missed a few B12 injections. She follows with multiple doctors including and dumbwaiter operator, cutting machine tender decorative, inspector line and PCP. She has been told they [...] which included preparing to see the patient, gmzi-rd-nozg patient care, completing clinical documentation, performing a medically appropriate examination, counseling and educating the patient/family/caregiver, ordering medications, tests, or procedures, and independently interpreting results (not separately reported). Jose Najera MD, CPE Hematology and Oncology Services Provided at: [place], [place] CC: Madelaine Ferris MD [address] [facility] [address] documented in this encounter [facility] 12-16-2022 Miscellaneous Notes Pt notified and verbalizes understanding. Clerical: Please change tomorrow's appointment to a phone visit at the end of Wilmer's day. Preferred number is [phone]. In addition, pt will be in next 12/25/22 @ 1130 for her B12 shot. Please add her to the MA schedule. Thanks! Pamella Bettencourt RN That would be okay. Have her added at the end of the day. Thanks, Wilmer Driver APRN.SUBSTATION OPERATOR AUTOMATIC Pt is scheduled for RV w/ Wilmer & B12 tomorrow. She would like to make this a telephone appointment instead and come back next week for B12. Pt had her labs drawn last week. Wilmer: Any objections to meeting w/ pt over the phone tomorrow or would you prefer we switch her to Mason's schedule? Pamella Bettencourt RN documented in this encounter [facility] 12-13-2022 Miscellaneous Notes No clinical [...] Enma Hamm RN documented in this encounter [facility] 11-24-2022 Miscellaneous Notes Please call [...] Lynne Ni MD documented in this encounter [facility] 11-19-2022 Nurse Note Patient Identification confirmed: yes. Injection given and documented on MAR per provider order. Margret Cuenca documented in this encounter [facility] 10-29-2022 Note [facility] 10-22-2022 Note [facility] 10-22-2022 Nurse Note Patient Identification confirmed: yes. Injection given and documented on MAR per provider order. Stacy Gutiérrez Ma documented in this encounter [facility] 10-22-2022 Instructions Jose Najera MD - 10/22/2022 11:43 AM EDT B12 Shot today and every 4 weeks. Continue Folic acid. Follow up in 8 Weeks - labs 1 week before. documented in this encounter [facility] 10-22-2022 History of Present illness Narrative Images from the original note were not included. NAME: Jones Haley CLINIC NO.: [id number] DATE OF SERVICE: October 22, 2022 (lizzettenhung) Some elements in this clinic note that [...] lower lip done 2 days ago at [facility] - awaiting results. B12 helps especially at [...] She follows with multiple doctors including and dumbwaiter operator, cutting machine tender decorative, inspector line and PCP. She has been told they [...] Procedure Laterality Date PAST SURGICAL HISTORY OF 2012 and 2013 pilonidal cyst PAST SURGICAL HISTORY [...] which included preparing to see the patient, gdnt-my-etbv patient care, completing clinical documentation, performing a medically appropriate examination, counseling and educating the patient/family/caregiver, ordering medications, tests, or procedures, and independently interpreting results (not separately reported). Jose Najera MD, CPE Hematology and Oncology Services Provided at: [place], [place] CC: Madelaine Ferris MD [address] [facility] [address] documented in this encounter [facility] 09-24-2022 Nurse Note Patient Identification confirmed: yes. Injection given and documented on JUL per provider order. Stacy Gutiérrez Ma documented in this encounter [facility] 09-11-2022 Note HNO ID: [id number] Author: Joselito Joshi Service: ? Author Type: ? Type: Progress Notes Filed: 09/11/2022 9:10 AM Note Text: Called patient and patient stated she will call back and schedule. Joselito Joshi [facility] 09-08-2022 Miscellaneous Notes Pharmacy-Reviewed Medication History Patient Name:Jim Haley : 1980 Patient Contact Attempt: First attempt Adherence Packing Program Accepted? No, patient does not wish to participate. Patient is not eligible for adherence packaging because PCP is not within [facility]. Patient wishes to continue at [facility] since medication bottles will look the same and then she can pick-up the medications when she needs them. Stacymaria e Hernandez September 08, 2022 2:28 PM [facility] [phone] documented in this encounter [facility] 09-07-2022 Note [facility] 09-07-2022 History of Present illness Narrative Images from the original note were not included. [facility] Virtual Follow-Up [...] which included preparing to see the patient, zzbj-oh-ngnz patient care, completing clinical documentation, performing a medically appropriate examination, counseling and educating the patient/family/caregiver, ordering medications, tests, or procedures, and communicating with other HCPs (not separately reported). I have communicated my name and active licensure. The patient's identity and physical location were verified at the time of this visit. Either the patient or their legal tax representative has been informed of the risks and benefits of -- and alternatives to -- treatment through a remote evaluation and consents to proceed with the evaluation remotely. Christie Phan MD, MA, [facility] Lifestyle Medicine Specialist documented in this encounter [facility] 09-07-2022 Nurse Note Called pt to do intake for video visit pt unavailable lft vm msg sent my chart. Milagro Mendiola MA documented in this encounter [facility] 08-31-[address] [facility] pharmacy - pharmacy had 1 refill remaining no action needed from our office documented in this encounter [facility] 08-27-2022 Note [facility] 08-27-2022 Nurse Note Patient Identification confirmed: yes. Injection given and documented on JUL per provider order. Stacy Gutiérrez Ma documented in this encounter [facility] 08-27-2022 History of Present illness Narrative Images from the original note were not included. NAME: Jones Haley CLINIC NO.: [id number] DATE OF SERVICE: August 27, 2022 (Bob) [...] She follows with multiple doctors including and dumbwaiter operator, cutting machine tender decorative, inspector line and PCP. She has been told they [...] APRN.TRUE Hematology and Oncology Services Provided at: [place], [place] CC: Madelaine Ferris MD [address] [facility] [address] I spent a total of 30 minutes on the date of the service which included preparing to see the patient, kygl-eu-iknx patient care, completing clinical documentation, obtaining and/or reviewing separately obtained history, performing a medically appropriate examination, counseling and educating the patient/family/caregiver, ordering medications, tests, or procedures, independently interpreting results (not separately reported), and communicating results to the patient/family/caregiver. documented in this encounter [facility] 08-19-2022 Miscellaneous Notes -noted MyChart message read by patient 08/19/22 . Last read by Jones Haley at 3:33 PM on 08/19/2022 Please Call patient if MyChart note not read to review results/released to My Chart if tests completed at [facility]: Improved/ mildly high normal inflammatory test- will monitor. Improved/mildly low vitamin b12- take over the counter 8407-9454 mcg daily. Improved/ normal rest of rheum [...] Lynne Ni MD documented in this encounter [facility] 08-18-2022 Miscellaneous Notes MC read [...] Lynne Ni MD documented in this encounter [facility] 08-10-2022 Miscellaneous Notes [facility] requesting refill, patient never started according to the chart and I have not seen her in follow-up. [facility] Pharmacy request for the following refill(s): Requested Prescriptions Pending Prescriptions Disp Refills DULoxetine (CYMBALTA) 20 mg capsule [Pharmacy Med Name: DULOXETINE HCL DR 20 MG CAP] 30 capsule 2 Sig: TAKE 1 CAPSULE BY MOUTH ONCE DAILY Please review and advise. Jami Everett Cma documented in this encounter [facility] 07-27-2022 Instructions Timmy Heck APRN.[facility] - 07/27/2022 9:12 PM EST Images from the original note were not included. Your most recent body mass index (BMI) that we have on record is 40.56 kg/m2. Obstructive sleep apnea (JOSE RAFAEL) worsens with an increase in weight; reduction in weight may improve or resolve your JOSE RAFAEL. If you are not already seeking treatment, there are resources available at the [facility] such as a nutrition consultation or referral to weight management programs at our [facility]. Please let us know if we can assist with a referral. - Continue CPAP at 5-15 cmH2O. - Remember to clean your mask and equipment regularly, as directed. - You should be eligible for new supplies approximately every 3-6 months, depending on your insurance coverage. Contact your Durable Medical Equipment (DME) company for new supplies. [...] the central scheduling system for the [facility] at [phone]. [facility] now offers direct scheduling for patients to schedule appointments. Virtual visits are also available. If not covered by your insurance, there is a 35% discount. Please contact your insurance to determine coverage. Call the office at [phone], option #5 for questions. documented in this encounter [facility] 07-27-2022 Note [facility] 07-27-2022 History of Present illness Narrative Images from the original note were not included. [facility] Virtual Visit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 01/02/2023) [address]08[address]2015 History of Past illness Narrative* Problem Noted Date Diagnosed Date Resolved Date Obesity (BMI 30-39.9) 05/31/20142016 documented as of this encounter (statuses as of 01/13/2023) [address]2015 History of Past illness Narrative* Problem Noted Date Diagnosed Date Resolved Date Obesity (BMI 30-39.9) 05/31/20142016 documented as of this encounter (statuses as of 01/22/2023) [address]2015 History of Past illness Narrative* Problem Noted Date Diagnosed Date Resolved Date Obesity (BMI 30-39.9) 05/31/20142016 documented as of this encounter (statuses as of 01/26/2023) [address]08[address]2015 History of Past illness Narrative* Problem Noted Date Diagnosed Date Resolved Date Obesity (BMI 30-39.9) 05/31/20142016 documented as of this encounter (statuses as of 02/04/2023) [address]08[address]2015 History of Past illness Narrative* Problem Noted Date Diagnosed Date Resolved Date Obesity (BMI 30-39.9) 05/31/20142016 documented as of this encounter (statuses as of 02/04/2023) [address]08[address]2015 History of Past illness Narrative* Problem Noted Date Diagnosed Date Resolved Date Obesity (BMI 30-39.9) 05/31/20142016 documented as of this encounter (statuses as of 02/07/2023) [address]08[address]2015 History of Past illness Narrative* Problem Noted Date Diagnosed Date Resolved Date Obesity (BMI 30-39.9) 05/31/20142016 documented as of this encounter (statuses as of 02/08/2023) [address]2015 History of Past illness Narrative* Problem Noted Date Diagnosed Date Resolved Date Obesity (BMI 30-39.9) 05/31/20142016 documented as of this encounter (statuses as of 02/16/2023) [address]2015 History of Past illness Narrative* Problem Noted Date Diagnosed Date Resolved Date Obesity (BMI 30-39.9) 05/31/20142016 documented as of this encounter (statuses as of 02/19/2023) [address]2015 History of Past illness Narrative* Problem Noted Date Diagnosed Date Resolved Date Obesity (BMI 30-39.9) 05/31/20142016 documented as of this encounter (statuses as of 02/21/2023) [facility] Narrative* Problem Noted Date Diagnosed Date Resolved Date Obesity (BMI 30-39.9) 05/31/20142016 documented as of this encounter (statuses as of 03/02/2023) [facility] Diagnosis Other systemic lupus [...] and myositis, unspecified [facility] Diagnosis Swelling of lymph nodes- Primary Enlargement of lymph nodes Other systemic lupus erythematosus with other organ involvement (HCC) On prednisone therapy Hair loss Alopecia, unspecified Bilateral sacroiliitis (HCC) Long-term use of Plaquenil 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-term (current) use of other medications [facility] Diagnosis Vitamin B12 deficiency- Primary Other B-complex deficiencies Vitamin D deficiency Unspecified vitamin D deficiency Elevated sed rate Elevated sedimentation rate Elevated C-reactive protein (CRP) [facility] Diagnosis 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 Other vitamin B12 deficiency anemia Somnolence, daytime Hypersomnia, unspecified Snoring Other dyspnea and respiratory abnormality Chronic fatigue and malaise Chronic fatigue syndrome Obesity, unspecified classification, unspecified obesity type, unspecified whether serious comorbidity present [facility] Diagnosis Obesity, [...] nonspecific immunological findings [facility] Diagnosis 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 Other vitamin B12 deficiency anemia High total serum IgM [facility] Diagnosis Raised level of immunoglobulins- Primary Other and unspecified nonspecific immunological findings Wound healing, delayed Open wound(s) (multiple) of unspecified site(s), complicated Current smoker Tobacco use disorder [facility] Diagnosis Family history of genetic disease- Primary Family history of other condition [facility] Diagnosis High total serum IgM- Primary Elevated sed rate Elevated sedimentation rate Somnolence, daytime Hypersomnia, unspecified JOSE RAFAEL (obstructive sleep apnea) Obstructive sleep apnea (adult) (pediatric) [facility]* Diagnosis 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 Other vitamin B12 deficiency anemia Elevated sed rate Elevated sedimentation rate [facility] Diagnosis 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 Other vitamin B12 deficiency anemia Elevated sed rate Elevated sedimentation rate High total serum IgM Chronic fatigue and malaise Chronic fatigue syndrome [facility] Diagnosis JOSE RAFAEL (obstructive sleep apnea)- Primary Obstructive sleep apnea (adult) (pediatric) [facility] Diagnosis Other systemic lupus erythematosus with other organ involvement (HCC)- Primary Family history of Crohn's disease Family history of other digestive disorders Fibromyalgia Mylagia and myositis, unspecified [facility] Diagnosis Other systemic lupus erythematosus with other organ involvement (HCC)- Primary Elevated LFTs Other abnormal blood chemistry Anemia of chronic disease Anemia of other chronic disease 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-term (current) use of other medications [facility] Diagnosis 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 Other vitamin B12 deficiency anemia Elevated sed rate Elevated sedimentation rate [facility] Diagnosis 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 Other vitamin B12 deficiency anemia Elevated sed rate Elevated sedimentation rate High total serum IgM Chronic fatigue and malaise Chronic fatigue syndrome JOSE RAFAEL (obstructive sleep apnea) Obstructive sleep apnea (adult) (pediatric) [facility] Vitamin D deficiency Unspecified vitamin D deficiency [facility] Diagnosis Obesity, Class III, BMI >= 40- Primary Morbid obesity Polypharmacy 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-term (current) use of other medications Pre-diabetes Other abnormal glucose [facility] Diagnosis 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 Other vitamin B12 deficiency anemia Elevated sed rate Elevated sedimentation rate [facility] Diagnosis 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 Other vitamin B12 deficiency anemia Elevated sed rate Elevated sedimentation rate [facility] Diagnosis 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 Other vitamin B12 deficiency anemia Elevated sed rate Elevated sedimentation rate High total serum IgM Chronic fatigue and malaise Chronic fatigue syndrome Obstructive sleep apnea syndrome Obstructive sleep apnea (adult) (pediatric) [facility] Diagnosis 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 Other vitamin B12 deficiency anemia Elevated sed rate Elevated sedimentation rate [facility] Diagnosis Other systemic lupus erythematosus with other organ involvement (HCC) 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-term (current) use of other medications [facility] Diagnosis 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 Other vitamin B12 deficiency anemia Chronic fatigue and malaise Chronic fatigue syndrome [facility] Diagnosis High total serum IgM- Primary Low serum IgG for age Current smoker Tobacco use disorder [facility] Diagnosis Obesity, Class II, BMI 35-39.9 Obesity, unspecified Prediabetes Other abnormal glucose [facility] Diagnosis 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 Other vitamin B12 deficiency anemia Elevated sed rate Elevated sedimentation rate [facility] Diagnosis Other systemic lupus erythematosus with other organ involvement (HCC)- Primary Vitamin D deficiency Unspecified vitamin D deficiency Elevated LFTs Other abnormal blood chemistry Anemia of chronic disease Anemia of other chronic disease Elevated sed rate Elevated sedimentation rate Elevated C-reactive protein (CRP) [facility] Diagnosis Other systemic lupus erythematosus [...] Bilateral wrist pain 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, forearm 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 [...] with other organ involvement (HCC) 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-term [...] apnea (adult) (pediatric) [facility] Diagnosis Insulin resistance, unspecified- Primary Depression, recurrent (HCC) Major depressive disorder, recurrent episode, unspecified Chronic pain syndrome documented in this encounter [facility] note* Diagnosis Systemic lupus erythematosus, unspecified SLE type, unspecified organ involvement status (HCC)- Primary [facility] Diagnosis 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 Other vitamin B12 deficiency anemia Elevated sed rate Elevated sedimentation rate [facility] Diagnosis 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 Other vitamin B12 deficiency anemia Elevated sed rate Elevated sedimentation rate [facility] Diagnosis Obesity, Class III, BMI >= 40- Primary Morbid obesity FUO (fever of unknown origin) Fever, unspecified Other chronic pain documented in this encounter [facility] note* Diagnosis Obesity, Class III, BMI >= 40 Morbid obesity documented in this encounter [facility] note* Diagnosis Obesity, Class III, BMI >= 40- Primary Morbid obesity Other chronic pain documented in this encounter [facility] note* Diagnosis Irregular heart rate- Primary Essential hypertension Unspecified essential hypertension Autonomic dysfunction Obstructive sleep apnea syndrome Obstructive sleep apnea (adult) (pediatric) Primary hypertension Unspecified essential hypertension documented in this encounter [facility] Work Phone: Evaluation note* Diagnosis Autoimmune disease [...] removal pilonidal Surgical History D&C Hospitalization History [facility]5 Other Reason for referral (narrative)* Diagnostic Procedure Only (Routine) - Pending Review Specialty Diagnoses / Procedures Referred By Nahid t Referred To Contact XR IMAGING Diagnoses Steroid-induced osteoporosis Procedures DXA-FOREARM SKELETON DXA BONE DENSITY STUDY 1/>SITES APPENDICLR Lynne Perera MD [address] [place] [address] [place] [address] Referral ID Status Reason Start Date Expiration Date Visits Requested Visits Authorized [id number] Pending Review Auto-Generat ed Referral 02/04/2023 03/05/2024 1 1 [facility] for referral (narrative)* Consultation (Routine) - Authorized Specialty Diagnoses / Procedures Referred By Contac t Referred To Contact Cardiology Diagnoses Irregular heart rate Essential hypertension Autonomic dysfunction Obstructive sleep apnea syndrome Primary hypertension Procedures Follow Up In Cardiology Michelle Britton APRN-[facility] [address] [facility] [address] [place] [address] Aurora Patel MD [address] [address] Referral ID Status Reason Start Date Expiration Date V isits Requested Visits Authorized [id number] Authorized 06/09/2023 06/08/2024 1 1 * Cardiovascular (Routine) - Pending Review Specialty Diagnoses / Procedures Referred By Contac t Referred To Contact Cardiology Diagnoses Irregular heart rate Procedures 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 [facility] [address] [facility] [address] [place] [address] Referral ID Status Reason Start Date Expiration Date V isits Requested Visits Authorized Pending Review 06/09/2023 06/08/2024 1 1 * CV Imaging (Routine) - Pending Review Specialty Diagnoses / Procedures Referred By Contac t Referred To Contact Cardiology Diagnoses Irregular heart rate Obstructive sleep apnea syndrome Procedures Transthoracic Echo (TTE) Complete VT ECHO TTHRC R-T 2D W/WOM-MODE COMPL SPEC&COLR D Michelle Britt[facility] [address] [facility] [address] [place] [address] Referral ID Status Reason Start Date Expiration Date Visits Requested Visits Authorized Pending Review Perform Procedure 06/09/2023 06/08/2024 1 1 * Cardiovascular (Routine) - Authorized Specialty Diagnoses / Procedures Referred By Contac t Referred To Contact Diagnoses Irregular heart rate Procedures ECG 12 Lead Michelle Britton APRN-CNP [address] [facility] [address] [place] [address] Referral ID Status Reason Start Date Expiration Date V isits Requested Visits Authorized [id number] Authorized 06/09/2023 06/08/2024 1 1 [facility] Work Phone: Summary Purpose Family History No Family History Records FoundNo Family History Records FoundNo Family History Records FoundNo Family History Records FoundNo Family History Records FoundNo Family History Records FoundNo Family History Records FoundNo Family History Records FoundNo Family History Records Found Advance Directives No Advanced Directives Records FoundDocuments on File Type Date Recorded Patient It Risk And Assurance Senior Manager Expl anation ACP-Advance Directive ACP-Power of Inspector Assemblies And Installations Latest Code Status on File Code Status Date Activated Date Inactivated Comments Full Code 10/07/2020 8:32 AM Documents on File Type Date Recorded Patient It Risk And Assurance Senior Manager Expl anation Advance Directive(s) 09/13/2015 8:36 AM Reason for Referral Specialty Diagnoses / Procedures Referred By Contiliana t Referred To Contact Diagnoses Obesity, Class III, BMI 40-49.9 (morbid obesity) (HCC) Pre-diabetes Christie Phan MD [address] [place], [place] [id number] Referral ID Status Reason Start Date Expiration Date Visits Re quested Visits Authorized [id number] Closed 1 1 Specialty Diagnoses / Procedures Referred By Contac t Referred To Contact Diagnoses Wound healing, delayed Procedures CONSULT TO MEDICAL GENETICS - GENERAL OFFICE/OUTPATIENT [facility] 60-74 MINUTES MEDICAL GENETICS COUNSELING EACH 30 MINUTES Misty Nelson MD [facility] [place] [address] [facility] Medicine [place] [address] [place] [address] Referral ID Status Reason Start Date Expiration Date Visits Requested Visits Authorized [id number] Authorized PCP Requested Referral Auto-Generate d Referral 2 03/10/2023 1 1 Specialty Diagnoses / Procedures Referred By Contac t Referred To Contact Neurology Diagnoses POTS (postural orthostatic tachycardia syndrome) Procedures CONSULT TO NEUROLOGY OFFICE/OUTPATIENT [facility] 60-74 MINUTES Christie Phan MD [address] [phone] Referral ID Status Reason Start Date Expiration Date Visits Requested Visits Authorized [id number] Authorized PCP Requested Referral 2 03/12/2023 1 1 Specialty Diagnoses / Procedures Referred By Contac t Referred To Contact Immunology Diagnoses Raised level of immunoglobulins Procedures CONSULT TO IMMUNOLOGY OFFICE/OUTPATIENT [facility] 60-74 MINUTES Christie Phan MD [address] [place] [address] Referral ID Status Reason Start Date Expiration Date V isits Requested Visits Authorized [id number] Closed PCP Requested Referral 03/09/2022 03/09/2023 1 1 Specialty Diagnoses / Procedures Referred By Contac t Referred To Contact [facility] Diagnoses Somnolence, daytime Snoring Procedures HOME SLEEP APNEA TEST (HSAT) SLEEP STD AIRFLOW HRT RATE&O2 SAT EFFORT UNATT Christie Phan MD [address] [place] [address] Neurological [place] [address] [place] [address] Referral ID Status Reason Start Date Expiration Date Visits Requested Visits Authorized [id number] Authorized Auto-Generat ed Referral 2 03/09/2023 1 1 Specialty Diagnoses / Procedures Referred By Contac t Referred To Contact Diagnoses Somnolence, daytime Chronic fatigue and malaise Obesity, unspecified classification, unspecified obesity type, unspecified whether serious comorbidity present Procedures CONSULT TO LIFESTYLE MEDICINE MD OFFICE/OUTPATIENT [facility] 60-74 MINUTES Jose Najera MD [address] [place] [address] [place] [address] Referral ID Status Reason Start Date Expiration Date V isits Requested Visits Authorized [id number] Closed PCP Requested Referral 03/04/2022 03/04/2023 1 1 Specialty Diagnoses / Procedures Referred By Contac t Referred To Contact Diagnoses Somnolence, daytime Snoring Procedures CONSULT TO SLEEP MEDICINE - ADULT OFFICE/OUTPATIENT [facility] MDM 60-74 MINUTES Jose Najera MD [address] [place] [address] [place] [address] Referral ID Status Reason Start Date Expiration Date Visits Requested Visits Authorized [id number] Authorized PCP Requested Referral 2 03/04/2023 1 [...] section and content) DATE CREATED AUTHOR 09/20/2018 [facility] DATE CREATED AUTHOR AUTHOR'S ORGANIZ ATION 09/23/2018 [facility] DATE CREATED AUTHOR AUTHOR'S ORGANIZ ATION 12/10/2018 [facility] DATE CREATED AUTHOR AUTHOR'S ORGANIZ ATION 01/13/2019 [facility] DATE CREATED AUTHOR AUTHOR'S ORGANIZ ATION 06/28/2021 [facility] DATE CREATED AUTHOR AUTHOR'S ORGANIZ ATION 10/01/2022 [facility] DATE CREATED AUTHOR AUTHOR'S ORGANIZ ATION 06/10/2023 [facility] DATE CREATED AUTHOR AUTHOR'S ORGANIZ ATION 06/18/2023 [facility] DATE CREATED AUTHOR AUTHOR'S ORGANIZ ATION 07/08/2023 [facility] dical Specialists EPIC Reason for Visit (unrecogniz ed section and content) Status Reason Specialty Diagnoses / Procedures Referre d By Contact Referred To Contact [facility] Reason Comments Pain ongoing generalized pain. Reason [...] HIGH MDM 60-74 MINUTES Jose Najera MD [address] [place] [address] [place] [address] Referral ID Status Reason Start Date Expiration Date V isits Requested Visits Authorized [id number] Closed PCP Requested Referral 03/04/2022 03/04/2023 1 1 Reason Comments High Total serum IgM Anemia Reason Comments Consult Specialty Diagnoses / Procedures Referred By Nahid tran Referred To Contact Immunology Diagnoses Raised level of immunoglobulins Procedures CONSULT TO IMMUNOLOGY OFFICE/OUTPATIENT NEW [facility]IGH MDM 60-74 MINUTES Christie Phan MD [address] [place], [place] [phone] Referral ID Status Reason Start Date Expiration Date V isits Requested Visits Authorized [id number] Closed PCP Requested Referral 03/09/2022 03/09/2023 1 1 Reason Comments Pneumovax Reason Comments Refill Request Reason Comments 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 Reason Comments Future Appointment Scheduling questions /concerns Reason Comments PAP Therapy Follow Up Reason Comments PAP Rx Faxed [facility] [place] Reason Comments Anemia 8 week [...] rate Procedures ECG 12 Lead Michelle Britton, 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 [address] [facility] [address] [place] [address] Referral ID Status Reason Start Date Expiration Date V isits Requested Visits Authorized Authorized 06/09/2023 06/08/2024 1 1 Ordered Prescriptions [...] or prosecute any alcohol or drug abuse patient.[facility] the event this information is protected by the Federal Confidentiality of Alcohol and Drug Abuse Patient Records regulations: The Federal rules restrict any use of the information to criminally investigate or prosecute any alcohol or drug abuse patient.[facility] the event this information is protected by the Federal Confidentiality of Alcohol and Drug Abuse Patient Records regulations: The Federal rules restrict any use of the information to criminally investigate or prosecute any alcohol or drug abuse patient.[facility] the event this information is protected by the Federal Confidentiality of Alcohol and Drug Abuse Patient Records regulations: The Federal rules restrict any use of the information to criminally investigate or prosecute any alcohol or drug abuse patient.[facility] Center[facility] the event this information is protected by the Federal Confidentiality of Alcohol and Drug Abuse Patient Records regulations: The Federal rules restrict any use of the information to criminally investigate or prosecute any alcohol or drug abuse patient.[facility] CenterIn the event this information is protected by the Federal Confidentiality of Alcohol and Drug Abuse Patient Records regulations: The Federal rules restrict any use of the information to criminally investigate or prosecute any alcohol or drug abuse patient.[facility] Center[facility] the event this information is protected by the Federal Confidentiality of Alcohol and Drug Abuse Patient Records regulations: The Federal rules restrict any use of the information to criminally investigate or prosecute any alcohol or drug abuse patient.[facility] CenterIn the event this information is protected by the Federal Confidentiality of Alcohol and Drug Abuse Patient Records regulations: The Federal rules restrict any use of the information to criminally investigate or prosecute any alcohol or drug abuse patient.[facility] Center[facility] the event this information is protected by the Federal Confidentiality of Alcohol and Drug Abuse Patient Records regulations: The Federal rules restrict any use of the information to criminally investigate or prosecute any alcohol or drug abuse patient.[facility] Center[facility] the event this information is protected by the Federal Confidentiality of Alcohol and Drug Abuse Patient Records regulations: The Federal rules restrict any use of the information to criminally investigate or prosecute any alcohol or drug abuse patient.[facility] Center[facility] the event this information is protected by the Federal Confidentiality of Alcohol and Drug Abuse Patient Records regulations: The Federal rules restrict any use of the information to criminally investigate or prosecute any alcohol or drug abuse patient.[facility] CenterIn the event this information is protected by the Federal Confidentiality of Alcohol and Drug Abuse Patient Records regulations: The Federal rules restrict any use of the information to criminally investigate or prosecute any alcohol or drug abuse patient.[facility] Center[facility] the event this information is protected by the Federal Confidentiality of Alcohol and Drug Abuse Patient Records regulations: The Federal rules restrict any use of the information to criminally investigate or prosecute any alcohol or drug abuse patient.[facility] CenterIn the event this information is protected by the Federal Confidentiality of Alcohol and Drug Abuse Patient Records regulations: The Federal rules restrict any use of the information to criminally investigate or prosecute any alcohol or drug abuse patient.[facility] CenterIn the event this information is protected by the Federal Confidentiality of Alcohol and Drug Abuse Patient Records regulations: The Federal rules restrict any use of the information to criminally investigate or prosecute any alcohol or drug abuse patient.[facility] CenterIn the event this information is protected by the Federal Confidentiality of Alcohol and Drug Abuse Patient Records regulations: The Federal rules restrict any use of the information to criminally investigate or prosecute any alcohol or drug abuse patient.[facility] CenterIn the event this information is protected by the Federal Confidentiality of Alcohol and Drug Abuse Patient Records regulations: The Federal rules restrict any use of the information to criminally investigate or prosecute any alcohol or drug abuse patient.[facility] CenterIn the event this information is protected by the Federal Confidentiality of Alcohol and Drug Abuse Patient Records regulations: The Federal rules restrict any use of the information to criminally investigate or prosecute any alcohol or drug abuse patient.[facility] CenterIn the event this information is protected by the Federal Confidentiality of Alcohol and Drug Abuse Patient Records regulations: The Federal rules restrict any use of the information to criminally investigate or prosecute any alcohol or drug abuse patient.[facility] CenterIn the event this information is protected by the Federal Confidentiality of Alcohol and Drug Abuse Patient Records regulations: The Federal rules restrict any use of the information to criminally investigate or prosecute any alcohol or drug abuse patient.[facility] CenterIn the event this information is protected by the Federal Confidentiality of Alcohol and Drug Abuse Patient Records regulations: The Federal rules restrict any use of the information to criminally investigate or prosecute any alcohol or drug abuse patient.[facility] CenterIn the event this information is protected by the Federal Confidentiality of Alcohol and Drug Abuse Patient Records regulations: The Federal rules restrict any use of the information to criminally investigate or prosecute any alcohol or drug abuse patient.[facility] CenterIn the event this information is protected by the Federal Confidentiality of Alcohol and Drug Abuse Patient Records regulations: The Federal rules restrict any use of the information to criminally investigate or prosecute any alcohol or drug abuse patient.[facility] CenterIn the event this information is protected by the Federal Confidentiality of Alcohol and Drug Abuse Patient Records regulations: The Federal rules restrict any use of the information to criminally investigate or prosecute any alcohol or drug abuse patient.[facility] CenterIn the event this information is protected by the Federal Confidentiality of Alcohol and Drug Abuse Patient Records regulations: The Federal rules restrict any use of the information to criminally investigate or prosecute any alcohol or drug abuse patient.[facility] CenterIn the event this information is protected by the Federal Confidentiality of Alcohol and Drug Abuse Patient Records regulations: The Federal rules restrict any use of the information to criminally investigate or prosecute any alcohol or drug abuse patient.[facility] CenterIn the event this information is protected by the Federal Confidentiality of Alcohol and Drug Abuse Patient Records regulations: The Federal rules restrict any use of the information to criminally investigate or prosecute any alcohol or drug abuse patient.[facility] CenterIn the event this information is protected by the Federal Confidentiality of Alcohol and Drug Abuse Patient Records regulations: The Federal rules restrict any use of the information to criminally investigate or prosecute any alcohol or drug abuse patient.[facility] CenterIn the event this information is protected by the Federal Confidentiality of Alcohol and Drug Abuse Patient Records regulations: The Federal rules restrict any use of the information to criminally investigate or prosecute any alcohol or drug abuse patient.[facility] CenterIn the event this information is protected by the Federal Confidentiality of Alcohol and Drug Abuse Patient Records regulations: The Federal rules restrict any use of the information to criminally investigate or prosecute any alcohol or drug abuse patient.[facility] CenterIn the event this information is protected by the Federal Confidentiality of Alcohol and Drug Abuse Patient Records regulations: The Federal rules restrict any use of the information to criminally investigate or prosecute any alcohol or drug abuse patient.[facility] CenterIn the event this information is protected by the Federal Confidentiality of Alcohol and Drug Abuse Patient Records regulations: The Federal rules restrict any use of the information to criminally investigate or prosecute any alcohol or drug abuse patient.[facility] CenterIn the event this information is protected by the Federal Confidentiality of Alcohol and Drug Abuse Patient Records regulations: The Federal rules restrict any use of the information to criminally investigate or prosecute any alcohol or drug abuse patient.[facility] CenterIn the event this information is protected by the Federal Confidentiality of Alcohol and Drug Abuse Patient Records regulations: The Federal rules restrict any use of the information to criminally investigate or prosecute any alcohol or drug abuse patient.[facility] CenterIn the event this information is protected by the Federal Confidentiality of Alcohol and Drug Abuse Patient Records regulations: The Federal rules restrict any use of the information to criminally investigate or prosecute any alcohol or drug abuse patient.[facility] CenterIn the event this information is protected by the Federal Confidentiality of Alcohol and Drug Abuse Patient Records regulations: The Federal rules restrict any use of the information to criminally investigate or prosecute any alcohol or drug abuse patient.[facility] CenterIn the event this information is protected by the Federal Confidentiality of Alcohol and Drug Abuse Patient Records regulations: The Federal rules restrict any use of the information to criminally investigate or prosecute any alcohol or drug abuse patient.[facility] CenterIn the event this information is protected by the Federal Confidentiality of Alcohol and Drug Abuse Patient Records regulations: The Federal rules restrict any use of the information to criminally investigate or prosecute any alcohol or drug abuse patient.[facility] CenterIn the event this information is protected by the Federal Confidentiality of Alcohol and Drug Abuse Patient Records regulations: The Federal rules restrict any use of the information to criminally investigate or prosecute any alcohol or drug abuse patient.[facility] CenterIn the event this information is protected by the Federal Confidentiality of Alcohol and Drug Abuse Patient Records regulations: The Federal rules restrict any use of the information to criminally investigate or prosecute any alcohol or drug abuse patient.[facility] CenterIn the event this information is protected by the Federal Confidentiality of Alcohol and Drug Abuse Patient Records regulations: The Federal rules restrict any use of the information to criminally investigate or prosecute any alcohol or drug abuse patient.[facility] CenterIn the event this information is protected by the Federal Confidentiality of Alcohol and Drug Abuse Patient Records regulations: The Federal rules restrict any use of the information to criminally investigate or prosecute any alcohol or drug abuse patient.[facility] CenterIn the event this information is protected by the Federal Confidentiality of Alcohol and Drug Abuse Patient Records regulations: The Federal rules restrict any use of the information to criminally investigate or prosecute any alcohol or drug abuse patient.[facility] CenterIn the event this information is protected by the Federal Confidentiality of Alcohol and Drug Abuse Patient Records regulations: The Federal rules restrict any use of the information to criminally investigate or prosecute any alcohol or drug abuse patient.[facility] CenterIn the event this information is protected by the Federal Confidentiality of Alcohol and Drug Abuse Patient Records regulations: The Federal rules restrict any use of the information to criminally investigate or prosecute any alcohol or drug abuse patient.[facility] CenterIn the event this information is protected by the Federal Confidentiality of Alcohol and Drug Abuse Patient Records regulations: The Federal rules restrict any use of the information to criminally investigate or prosecute any alcohol or drug abuse patient.[facility] CenterIn the event this information is protected by the Federal Confidentiality of Alcohol and Drug Abuse Patient Records regulations: The Federal rules restrict any use of the information to criminally investigate or prosecute any alcohol or drug abuse patient.[facility] CenterIn the event this information is protected by the Federal Confidentiality of Alcohol and Drug Abuse Patient Records regulations: The Federal rules restrict any use of the information to criminally investigate or prosecute any alcohol or drug abuse patient.[facility] CenterIn the event this information is protected by the Federal Confidentiality of Alcohol and Drug Abuse Patient Records regulations: The Federal rules restrict any use of the information to criminally investigate or prosecute any alcohol or drug abuse patient.[facility] CenterIn the event this information is protected by the Federal Confidentiality of Alcohol and Drug Abuse Patient Records regulations: The Federal rules restrict any use of the information to criminally investigate or prosecute any alcohol or drug abuse patient.[facility] CenterIn the event this information is protected by the Federal Confidentiality of Alcohol and Drug Abuse Patient Records regulations: The Federal rules restrict any use of the information to criminally investigate or prosecute any alcohol or drug abuse patient.[facility] CenterIn the event this information is protected by the Federal Confidentiality of Alcohol and Drug Abuse Patient Records regulations: The Federal rules restrict any use of the information to criminally investigate or prosecute any alcohol or drug abuse patient.[facility] CenterIn the event this information is protected by the Federal Confidentiality of Alcohol and Drug Abuse Patient Records regulations: The Federal rules restrict any use of the information to criminally investigate or prosecute any alcohol or drug abuse patient.[facility] CenterIn the event this information is protected by the Federal Confidentiality of Alcohol and Drug Abuse Patient Records regulations: The Federal rules restrict any use of the information to criminally investigate or prosecute any alcohol or drug abuse patient.[facility] CenterIn the event this information is protected by the Federal Confidentiality of Alcohol and Drug Abuse Patient Records regulations: The Federal rules restrict any use of the information to criminally investigate or prosecute any alcohol or drug abuse patient.[facility] CenterIn the event this information is protected by the Federal Confidentiality of Alcohol and Drug Abuse Patient Records regulations: The Federal rules restrict any use of the information to criminally investigate or prosecute any alcohol or drug abuse patient.[facility] CenterIn the event this information is protected by the Federal Confidentiality of Alcohol and Drug Abuse Patient Records regulations: The Federal rules restrict any use of the information to criminally investigate or prosecute any alcohol or drug abuse patient.[facility] CenterIn the event this information is protected by the Federal Confidentiality of Alcohol and Drug Abuse Patient Records regulations: The Federal rules restrict any use of the information to criminally investigate or prosecute any alcohol or drug abuse patient.[facility] CenterIn the event this information is protected by the Federal Confidentiality of Alcohol and Drug Abuse Patient Records regulations: The Federal rules restrict any use of the information to criminally investigate or prosecute any alcohol or drug abuse patient.[facility] CenterIn the event this information is protected by the Federal Confidentiality of Alcohol and Drug Abuse Patient Records regulations: The Federal rules restrict any use of the information to criminally investigate or prosecute any alcohol or drug abuse patient.[facility] CenterIn the event this information is protected by the Federal Confidentiality of Alcohol and Drug Abuse Patient Records regulations: The Federal rules restrict any use of the information to criminally investigate or prosecute any alcohol or drug abuse patient.[facility] CenterIn the event this information is protected by the Federal Confidentiality of Alcohol and Drug Abuse Patient Records regulations: The Federal rules restrict any use of the information to criminally investigate or prosecute any alcohol or drug abuse patient.[facility] CenterIn the event this information is protected by the Federal Confidentiality of Alcohol and Drug Abuse Patient Records regulations: The Federal rules restrict any use of the information to criminally investigate or prosecute any alcohol or drug abuse patient.[facility] CenterIn the event this information is protected by the Federal Confidentiality of Alcohol and Drug Abuse Patient Records regulations: The Federal rules restrict any use of the information to criminally investigate or prosecute any alcohol or drug abuse patient.[facility] CenterIn the event this information is protected by the Federal Confidentiality of Alcohol and Drug Abuse Patient Records regulations: The Federal rules restrict any use of the information to criminally investigate or prosecute any alcohol or drug abuse patient.[facility] CenterIn the event this information is protected by the Federal Confidentiality of Alcohol and Drug Abuse Patient Records regulations: The Federal rules restrict any use of the information to criminally investigate or prosecute any alcohol or drug abuse patient.[facility] Care Teams (unrecognized sec tion and content) Dock Manager Relationship Specialty Start Date End Date Gay Enciso, STOCK OR DELIVERY CLERK.SUBSTATION OPERATOR AUTOMATIC [address] [id number] PCP - General Family Practice 10/24/21 Dock Manager Relationship Specialty Start Date End Date Gay Enciso, STOCK OR DELIVERY CLERK.SUBSTATION OPERATOR AUTOMATIC [address] [place] [address] PCP - General Family Medicine 10/24/21 Madelaine Ferris MD [address] [place] [address] Referring Family Medicine 02/12/22 Dock Manager Relationship Specialty Start Date End Date Madelaine Ferris MD [address] [place] [address] PCP - General Family Medicine 02/27/22 Madelaine Ferris MD [address] [facility] [place] [address] Referring Family Medicine 02/12/22 Dock Manager Relationship Specialty Start Date End Date Madelaine Ferris MD [address] [facility] [place] [address] PCP - General Family Medicine 02/27/22 Madelaine Ferris MD [address] [facility] [place] [address] Referring Family Medicine 02/12/22 Dock Manager Relationship Specialty Start Date End Date Madelaine Ferris MD [address] [facility] [place] [address] PCP - General Family Medicine 02/27/22 Madelaine Ferris MD [address] [facility] [place] [address] Referring Family Medicine 02/12/22 Dock Manager Relationship Specialty Start Date End Date Madelaine Ferris MD [address] [facility] [place] [address] PCP - General Family Medicine 02/27/22 Madelaine Ferris MD [address] [facility] [place] [address] Referring Family Medicine 02/12/22 Dock Manager Relationship Specialty Start Date End Date Madelaine Ferris MD [address] [facility] [place] [address] PCP - General Family Medicine 02/27/22 Madelaine Ferris MD [address] [facility] [place] [address] Referring Family Medicine 02/12/22 Dock Manager Relationship Specialty Start Date End Date Madelaine Ferris MD [address] [facility] [place] [address] PCP - General Family Medicine 02/27/22 Madelaine Ferris MD [address] [facility] [place] [address] Referring Family Medicine 02/12/22 Dock Manager Relationship Specialty Start Date End Date Madelaine Ferris MD [address] [facility] [place] [address] PCP - General Family Medicine 02/27/22 Madelaine Ferris MD [address] [facility] [place] [address] Referring Family Medicine 02/12/22 Dock Manager Relationship Specialty Start Date End Date Madelaine Ferris MD [address] [facility] [place] [address] PCP - General Family Medicine 02/27/22 Madelaine Ferris MD [address] [facility] [place] [address] Referring Family Medicine 02/12/22 Dock Manager Relationship Specialty Start Date End Date Madelaine Ferris MD [address] [facility] [place] [address] PCP - General Family Medicine 02/27/22 Madelaine Ferris MD [address] [facility] [place] [address] Referring Family Medicine 02/12/22 Dock Manager Relationship Specialty Start Date End Date Madelaine Ferris MD [address] [facility] [place] [address] PCP - General Family Medicine 02/27/22 Madelaine Ferris MD [address] [facility] [place] [address] Referring Family Medicine 02/12/22 Dock Manager Relationship Specialty Start Date End Date Madelaine Ferris MD [address] [facility] [place] [address] PCP - General Family Medicine 02/27/22 Madelaine Ferris MD [address] [facility] [place] [address] Referring Family Medicine 02/12/22 Dock Manager Relationship Specialty Start Date End Date Madelaine Ferris MD [address] [facility] [place] [address] PCP - General Family Medicine 02/27/22 Madelaine Ferris MD [address] [facility] [place] [address] Referring Family Medicine 02/12/22 Dock Manager Relationship Specialty Start Date End Date Madelaine Ferris MD [address] [facility] [place] [address] PCP - General Family Medicine 02/27/22 Madelaine Ferris MD [address] [facility] [place] [address] Referring Family Medicine 02/12/22 Dock Manager Relationship Specialty Start Date End Date Madelaine Ferris MD [address] [facility] [place] [address] PCP - General Family Medicine 02/27/22 Madelaine Ferris MD [address] [facility] [place] [address] Referring Family Medicine 02/12/22 Dock Manager Relationship Specialty Start Date End Date Madelaine Ferris MD [address] [facility] [place] [address] PCP - General Family Medicine 02/27/22 Madelaine Ferris MD [address] [facility] [place] [address] Referring Family Medicine 02/12/22 Dock Manager Relationship Specialty Start Date End Date Madelaine Ferris MD [address] [facility] [place] [address] PCP - General Family Medicine 02/27/22 Madelaine Ferris MD [address] [facility] [place] [address] Referring Family Medicine 02/12/22 Dock Manager Relationship Specialty Start Date End Date Madelaine Ferris MD [address] [facility] [place] [address] PCP - General Family Medicine 02/27/22 Madelaine Ferris MD [address] [facility] [place] [address] Referring Family Medicine 02/12/22 Dock Manager Relationship Specialty Start Date End Date Madelaine Ferris MD [address] [facility] [place] [address] PCP - General Family Medicine 02/27/22 Madelaine Ferris MD [address] [facility] [place] [address] Referring Family Medicine 02/12/22 Dock Manager Relationship Specialty Start Date End Date Madelaine Ferris MD [address] [facility] [place] [address] PCP - General Family Medicine 02/27/22 Madelaine Ferris MD [address] [facility] [place] [address] Referring Family Medicine 02/12/22 Dock Manager Relationship Specialty Start Date End Date Madelaine Ferris MD [address] [facility] [place] [address] PCP - General Family Medicine 02/27/22 Madelaine Ferris MD [address] [id number] Referring Family Medicine 02/12/22 Dock Manager Relationship Specialty Start Date End Date Madelaine Ferris MD [address] [id number] PCP - General Family Medicine 02/27/22 Madelaine Ferris MD [address] [place] [address] Referring Family Medicine 02/12/22 Dock Manager Relationship Specialty Start Date End Date Madelaine Ferris MD PCP - General Family Medicine 02/27/22 Madelaine Ferris MD Referring Family Medicine 02/12/22 Dock Manager Relationship Specialty Start Date End Date Madelaine Ferris MD PCP - General Family Medicine 02/27/22 Madelaine Ferris MD Referring Family Medicine 02/12/22 Dock Manager Relationship Specialty Start Date End Date Madelaine Ferris MD PCP - General Family Medicine 02/27/22 Madelaine Ferris MD Referring Family Medicine 02/12/22 Dock Manager Relationship Specialty Start Date End Date Madelaine Ferris MD PCP - General Family Medicine 02/27/22 Madelaine Ferris MD Referring Family Medicine 02/12/22 Dock Manager Relationship Specialty Start Date End Date Madelaine Ferris MD PCP - General Family Medicine 02/27/22 Madelaine Ferris MD Referring Family Medicine 02/12/22 Dock Manager Relationship Specialty Start Date End Date Madelaine Ferris MD PCP - General Family Medicine 02/27/22 Madelaine Ferris MD Referring Family Medicine 02/12/22 Dock Manager Relationship Specialty Start Date End Date Madelaine Ferris MD PCP - General Family Medicine 02/27/22 Madelaine Ferris MD Referring Family Medicine 02/12/22 Dock Manager Relationship Specialty Start Date End Date Madelaine Ferris MD PCP - General Family Medicine 02/27/22 Madelaine Ferris MD Referring Family Medicine 02/12/22 Dock Manager Relationship Specialty Start Date End Date Madelaine Ferris MD PCP - General Family Medicine 02/27/22 Madelaine Ferris MD Referring Family Medicine 02/12/22 Dock Manager Relationship Specialty Start Date End Date Madelaine Ferris MD PCP - General Family Medicine 02/27/22 Madelaine Ferris MD Referring Family Medicine 02/12/22 Dock Manager Relationship Specialty Start Date End Date Madelaine Ferris MD PCP - General Family Medicine 02/27/22 Madelaine Ferris MD Referring Family Medicine 02/12/22 Dock Manager Relationship Specialty Start Date End Date Madelaine Ferris MD PCP - General Family Medicine 02/27/22 Madelaine Ferris MD Referring Family Medicine 02/12/22 Dock Manager Relationship Specialty Start Date End Date Madelaine Ferris MD PCP - General Family Medicine 02/27/22 Madelaine Ferris MD Referring Family Medicine 02/12/22 Dock Manager Relationship Specialty Start Date End Date Madelaine Ferris MD PCP - General Family Medicine 02/27/22 Madelaine Ferris MD Referring Family Medicine 02/12/22 Dock Manager Relationship Specialty Start Date End Date Madelaine Ferris MD PCP - General Family Medicine 02/27/22 Madelaine Ferris MD Referring Family Medicine 02/12/22 Dock Manager Relationship Specialty Start Date End Date Madelaine Ferris MD PCP - General Family Medicine 02/27/22 Madelaine Ferris MD Referring Family Medicine 02/12/22 Dock Manager Relationship Specialty Start Date End Date Madelaine Ferris MD PCP - General Family Medicine 02/27/22 Madelaine Ferris MD Referring Family Medicine 02/12/22 Dock Manager Relationship Specialty Start Date End Date Madelaine Ferris MD PCP - General Family Medicine 02/27/22 Madelaine Ferris MD Referring Family Medicine 02/12/22 Dock Manager Relationship Specialty Start Date End Date Madelaine Ferris MD PCP - General Family Medicine 02/27/22 Madelaine Ferris MD Referring Family Medicine 02/12/22 Dock Manager Relationship Specialty Start Date End Date Madelaine Ferris MD PCP - General Family Medicine 02/27/22 Madelaine Ferris MD Referring Family Medicine 02/12/22 Dock Manager Relationship Specialty Start Date End Date Madelaine Ferris MD PCP - General Family Medicine 02/27/22 Madelaine Ferris MD Referring Family Medicine 02/12/22 Dock Manager Relationship Specialty Start Date End Date Madelaine Ferris MD PCP - General Family Medicine 02/27/22 Madelaine Ferris MD Referring Family Medicine 02/12/22 Dock Manager Relationship Specialty Start Date End Date Madelaine Ferris MD PCP - General Family Medicine 02/27/22 Madelaine Ferris MD Referring Family Medicine 02/12/22 Dock Manager Relationship Specialty Start Date End Date Madelaine Ferris MD PCP - General Family Medicine 02/27/22 Madelaine Ferris MD Referring Family Medicine 02/12/22 Dock Manager Relationship Specialty Start Date End Date Madelaine Ferris MD PCP - General Family Medicine 02/27/22 Madelaine Ferris MD Referring Family Medicine 02/12/22 Dock Manager Relationship Specialty Start Date End Date Madelaine Ferris MD PCP - General Family Medicine 02/27/22 Madelaine Ferris MD Referring Family Medicine 02/12/22 Dock Manager Relationship Specialty Start Date End Date Charles Mitchell DO [address] [place] [id number] PCP - General 10/22/18 Michelle Britton, 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 [address] [place] [address] Nurse Practitioner Cardiology 06/08/23 FOR RECORDS PERTAINING [...] BE BASED ON THE PRIMARY CLINICAL RECORDS. [employer] [facility]. provides no warranty or guarantee of the accuracy or completeness of information in this document.
[2023-07-14 14:09] LABS: Albumin 3.5 g/dL (2.9-4.4); Alpha-1-Globulin 0.3 g/dL (0.0-0.4); Alpha-2-Globulin 0.9 g/dL (0.4-1.0); Gamma Globulin 0.7 g/dL (0.4-1.8); Protein, Total 6.7 g/dL (6.0-8.5)
[2023-07-15 12:10] LABS: Alpha-1-Globulin, U 4.5 % (.); Alpha-2-Globulin, U 22.5 % (.); Beta Globulin, U 29.3 % (.); Gamma Globulin, U 17.7 % (.); M-Spike, % Not Observed % (Not Observed); Protein,Total,Urine 15.7 mg/dL (Not Estab.)
== END 2023-07-13 12:33 | disposition home or self-care (01) ==
LOC: LAB 12:34
PROVIDERS: PCP Nurse Practitioner Family; Visit Provider Psychiatry & Neurology Neurology
DX: M35.9 Systemic involvement of connective tissue, unspecified (principal); G90.9 Disorder of the autonomic nervous system, unspecified
CPT/HCPCS: 36415; 84155; 84165

== ENCOUNTER 2023-07-27 11:29 | Outpatient (REF) | payer OTHER, SELFPAY | END 2023-07-27 11:30 | disposition home or self-care (01) | LOC: LAB 11:29 | PROVIDERS: PCP Nurse Practitioner Family; Visit Provider Nurse Practitioner Family | DX: R19.7 Diarrhea, unspecified (principal) | CPT/HCPCS: 87045; 87046; 87427; 87493 ==

== ENCOUNTER 2023-07-30 15:46 | Outpatient (OUT) | payer OTHER, SELFPAY ==
--- NOTE | 2023-07-30 | US_ITS ---
The [address] [address] Patient Name: JONES HALEY MRN: [id number] date: 1980 Sex: F Assigned Patient Location: US Current Patient Location: US Accession/Order Number: [id number] Exam Date: 07/30/2023 16:25 Report Date: 07/31/2023 09:47 At the request of: SAMSON ENCISO Procedure: US soft tissue head and neck EXAM: US soft tissue head and neck HISTORY: M54.2 Neck pain COMPARISON: Ultrasound thyroid 07/30/2023 TECHNIQUE: Percutaneous ultrasound of neck in area of tenderness FINDINGS: No appreciable mass, fluid collection, or suspicious findings of the soft tissues of the imaged areas of the left neck in area of tenderness. US/US soft tissue head and neck IMPRESSION: 1. No appreciable abnormality to account for patient's neck pain. 2. Please see separate report of Ultrasound evaluation of thyroid gland. Electronically authenticated by: SAYDA ANN Date: 07/31/2023 09:47
--- NOTE | 2023-07-30 | US_ITS ---
The [address] [address] Patient Name: JONES HALEY MRN: [id number] date: 1980 Sex: F Assigned Patient Location: US Current Patient Location: US Accession/Order Number: [id number] Exam Date: 07/30/2023 16:25 Report Date: 07/30/2023 18:53 At the request of: SAMSON ENCISO Procedure: US thyroid EXAM: US thyroid HISTORY: M54.2 Neck pain . Follow-up study. COMPARISON: 07/15/2020 TECHNIQUE: Multiple sonographic images of the thyroid gland were obtained, supplemented with Doppler. FINDINGS: The right lobe measures 5.3 x 1.7 x 2.3 cm. Homogeneous echoes are noted throughout. There is no cystic or solid mass seen in the right lobe. The left lobe measures 5.3 x 1.8 x 1.7 cm. In the inferior aspect there is a small cyst measuring 0.8 x 0.5 x 0.7 cm, with some peripheral calcifications. No other cystic or solid mass is identified. The isthmus measures 3 mm in thickness. There is no evidence of a focal mass or abnormal fluid collection surrounding the gland. US/US thyroid IMPRESSION: The thyroid gland is mildly enlarged diffusely. A cyst is seen in the inferior aspect of the left lobe, which is considered TI RADS 2. No other nodule is identified in the thyroid gland. The cyst in the left lobe was not identified in the prior study. The overall appearance of the thyroid gland is otherwise unchanged. Follow-up study as clinically indicated. Electronically authenticated by: DARIN VORA Date: 07/30/2023 18:53
--- OUTSIDE RECORDS SUMMARY | 2023-07-30 16:11 | XMS_ITS | CCD ---
Author Name Unknown Address [address] [place] [address] Organization [facility] Care Team Providers Care Manager Payer Name Role Phone VICTOR MANUEL GUZMAN Referring Unavailable Bettina Jiménez Admitting Unavailable Bettina Jiménez Attending Unavailable Lui Salomon Primary Care Unavailable Unavailable Primary Care Provider UnavailJAREN Stuart Referring Unavailable Fernie SPA ASSOCIATE.TRUE, Gay Primary Care Provider [phone] Mirela Kelsey Unavailable Fernie SPA ASSOCIATE.Gay BISWAS Primary Care Provider Madelaine Ferris MD Unavailable Madelaine Ferris MD Primary Care Provider [phone] Madelaine Ferris MD Unavailable Madelaine Ferris MD Primary Care Provider [phone] Madelaine Ferris MD Unavailable Madelaine Ferris MD Primary Care Provider [phone] MADELAINE LEYVA Primary Care Unavailable [...] JOSY Harris, DR BURKETT Consulting Unavailable JOSY .DR BURKETT Attending Unavailable JOSY ., DR BURKETT [...] Attending Unavailable BLANK, DR DIETZ Admitting Unavailable FERNIE, GAY Primary Care Unavailable BLANK, DR DIETZ Consulting Unavailable BLANK, DR DIETZ Attending Unavailable BLANK, DR DIETZ Admitting Unavailable HOY ., DR BURKETT Primary Care Unavailable PARMJIT ., MICKY Attending Unavailable PARMJIT ., MICKY Admitting Unavailable TOPSHAM, DR AURORA Pacheco Consulting Unavailable HOY ., [...] Charles Mitchell DO Primary Care Provider Mitali SPA ASSOCIATE-AIR DRILL OPERATORMichelle Unavailable [phone] Unavailable Primary Care Provider UnavailAurora Carney MD Unavailable Fernie SPA ASSOCIATE-AIR DRILL OPERATOR, Gay S Primary Care Provider MICHELLE BRITTON Attending Unavailable CHARLES MITCHELL Primary Care Unavailable MICHELLE BRITTON Referring Unavailable LOIS HOLM Attending Unavailable FERNIE, GAY S Primary Care Unavailable SHARRON ROGERS Attending Unavailab JUAN LUIS Mejía Attending Unavailable BERNABE ENGLISH Attending Unavailable SHARRON ROGERS Attending Unavailab susan SNEEDIANSHARRON Dorantes Referring Unavailab le GRAZIANISHARRON Referring Unavailab le HOY, MADELAINE M Primary Care Unavailable HOY, [...] Unavailable HOY, MADELAINE M Primary Care Unavailable MADY, CHRISTIE Referring Unavailable QUINTIN PHANSSICA Attending Unavailable HOY, MADELAINE M Primary Care Unavailable PATADIA, MISTY Referring Unavailable PATADIA, MISTY Attending Unavailable HOY, MADELAINE M Primary Care Unavailable HOY, MADELAINE M Primary Care Unavailable WILMER DRIVER Attending Unavailable HOY, MADELAINE M Primary Care Unavailable LSATHARPER DorantesLYNNE Referring Unavailable RUFFCHRISTIE Attending Unavailable HOY, MADELAINE M Primary Care Unavailable HOY, MADELAINE M Primary Care Unavailable HOY, MADELAINE M Primary Care Unavailable HOY, MADELAINE M Primary Care Unavailable ABHYVENUS HOOKEREK Attending Unavailable HOY, MADELAINE M Primary Care Unavailable HOY, MADELAINE M Primary Care Unavailable HOY, MADELAINE M Primary Care Unavailable ABHYVENUS HOOKEREK Attending Unavailable HOY, MADELAINE M Primary Care Unavailable HOY, MADELAINE M Primary Care Unavailable OSKAR PHANICA Attending Unavailable HOY, MADELAINE M Primary Care Unavailable HOY, MADELAINE M Primary Care Unavailable HOY, MADELAINE M Primary Care Unavailable LASTHARPERLYNNE Attending Unavailable HOY, MADELAINE M Primary Care Unavailable LAST, LYNNE Referring Unavailable HOY, MADELAINE M Primary Care Unavailable WILMER DRIVER Attending Unavailable HOY, MADELAINE M Primary Care Unavailable HOY, MADELAINE M Primary Care Unavailable TIMMY HECK Attending Unavailable HOY, MADELAINE M Primary Care Unavailable HOY, MADELAINE M Primary Care Unavailable HARPER NIARET Referring Unavailable HOY, MADELAINE M Primary Care Unavailable CHRISTIE PHAN Attending Unavailable HOY, MADELAINE M Primary Care Unavailable HOY, MADELAINE M Primary Care Unavailable HOY, MADELAINE M Primary Care Unavailable WILMER DRIVER Attending Unavailable HOY, MADELAINE M Primary Care Unavailable Allergies Allergy Classification Reported Allergen(s) Allergy Type Date of Onset Reaction(s) Facility Sulfamethoxazole / Trimethoprim (1 source) Sulfamethoxazole / Trimethoprim Drug Allergy [facility] (20 sources) Codeine; Translations: [CODEINE] Drug Allergy Other: See Comments [facility] (20 sources) Latex; Translations: [LATEX] Drug Allergy Rash [facility] (20 sources) Sulfamethoxazole; Translations: [SULFAMETHOXAZOLE] Drug Allergy GI Upset, Other: See Comments [facility] (20 sources) Clindamycin; Translations: [CLINDAMYCIN] Drug Allergy Unknown [facility] (4 sources) Sulfamethoxazole / Trimethoprim Drug Allergy lymph swelling [employer] Other (20 sources) Doxycycline; Translations: [DOXYCYCLINE] Drug Allergy Other: See Comments, Other, Unknown [facility] (20 sources) Sulfamethoxazole / Trimethoprim; Translations: [SULFAMETHOXAZOLE-T RIMETHOPRIM] Drug Allergy Swelling, Other [facility] (20 sources) Trimethoprim; Translations: [TRIMETHOPRIM] Drug Allergy Other: See Comments [facility] (1 source) Latex Drug allergy (disorder) [facility] (1 source) Sulfamethoxazole / Trimethoprim Drug Allergy [facility] (3 sources) Sulfamethoxazole Allergy to substance [facility] (2 sources) Latex Propensity to adverse reactions Rash [facility] Medications Current Medications Medication Drug Class(es) Dates Sig (Normalized) Sig (Original) ALPRAZolam 0.25 mg oral tablet (2 sources) Benzodiazepine Start: 06-24-2023 take 1 tablet by mouth once daily as needed ALPRAZolam (Xanax) 0.25 MG tablet TAKE 1 TABLET BY MOUTH EVERY DAY NEEDED FOR 30 DAYS 0 06/24/2023 Active amLODIPine 2.5 mg oral tablet (1 source) Dihydropyridine Calcium Channel Judie Start: 10-07-2020 take 1 tablet by mouth once daily amLODIPine (NORVASC) 2.5 MG tablet Take 1 tablet by mouth daily 30 tablet 3 10/07/2020 Active amoxicillin 875 mg oral tablet (2 sources) Penicillin-class Antibacterial Start: 10-19-2020 take 1 tablet by mouth every twelve hours Amoxicillin 875 MG 1 tablet Orally every 12 hrs for 7 days September, Active amoxicillin 875 mg / clavulanate 125 mg oral tablet (1 source) Penicillin-class Antibacterial take 1 tablet by mouth twice daily amoxicillin-clavul anate (AUGMENTIN) 875-125 MG per tablet Take 1 tablet by mouth 2 times daily 0 Active cephalexin 500 mg oral capsule (5 sources) Cephalosporin Antibacterial Start: 01-07-2023 cephalexin (Keflex) 500 MG capsule Indications: Postoperative stitch abscess Take 1 tablet twice a day x 7 days 14 capsule 0 01/07/2023 Active Keflex Active clindamycin 0.01 mg/mg topical gel (5 sources) Lincosamide Antibacterial Start: 06-23-2022 clindamycin phosphate 1 % gel, once daily Apply topically once daily. 0 05/26/2023 Active clobetasol propionate 0.5 mg/ml medicated shampoo (5 sources) Corticosteroid Start: 10-23-2022 clobetasoL 0.0 5 % shampoo Apply topically. 1 application to the scalp in the shower topically 3-4 times a week 0 10/23/2022 Active CPAP/BIPAP/OTHER (20 sources) Start: 05-05-2022 [...] a note to see current settings/supplies/DME information. fludrocortisone acetate 0.1 mg oral tablet (3 sources) Start : 06-01 End: 05-31 take 1 tablet by mouth at bedtime fludrocortisone (Florinef) 0.1 MG tablet Indications: Autonomic dysfunction Take 1 tablet (0.1 mg) by mouth at bedtime 30 tablet 11 06/01/2023 05/31/2024 Active fluocinonide 0.5 mg/ml topical solution (5 sources) Corticosteroid Start : 10-20 fluocinonide (Lidex) 0.05 % external solution Apply topically once daily. apply to affected area on scalp topically qd-bid prn for 30 day(s) 0 10/20/2022 Active hyoscyamine sulfate 0.125 mg oral tablet (2 sources) Start : 06-27 take 1 tablet by mouth every six hours as needed for pain hyoscyamine (Anaspaz,Levsin) 0.125 MG tablet TAKE 1 TABLET BY MOUTH EVERY 6 HOURS NEEDED FOR ABDOMINAL PAIN 0 06/27/2023 Active magnesium citrate 58.2 mg/ml oral solution (2 sources) Start : 06-27 [facility] Magnesium Citrate oral solution TAKE HALF OF THE BOTTLE WITH 8 OZ OF WATER, TAKE THE OTHER HALF AFTER 1 HOUR WITH 8 OZ OF WATER 0 06/27/2023 Active metoprolol tartrate 50 mg oral tablet (20 sources) beta-Adrenergic Judie Start : 04-23 take 2 tablets by mouth twice daily [...] twice daily. montelukast 10 mg oral tablet (5 sources) Leukotriene Receptor Antagonist Start: 4 End: [...] Start: 01-19-2022 take 1 capsule by mo [facility] once daily naltrexone capsule 1 [...] 0.4 mg unde r the tongue. nystatin [id number] unt/ml topical cream (3 sources) Polyene Antifungal Start: nystatin (Mycostatin) cream Indications: Candidiasis of skin [...] Active phentermine hydrochloride 37.5 mg oral tablet (11 sources) Sympathomimetic Amine Anorectic Start: End: take 1 tablet by mouth once daily before breakfast Phentermine HCl 37.5 mg tablet Indications: Obesity, Class III, BMI 40-49.9 (morbid obesity) (HCC) Take 1 tablet by mouth daily before breakfast for 90 days. 90 tablet 0 05/26/2023 08/24/2023 Active Comment on above: Take 1 tablet by kristal daily before breakfast for 30 days. Take 1 tablet by kristal th daily before breakfast for 90 days. pravastatin sodium 20 mg oral tablet (2 sources) HMG-CoA Reductase Inhibitor Start: take 1 tablet by mouth once daily pravastatin (Pravachol) 20 MG tablet TAKE 1 TABLET BY MOUTH EVERY DAY FOR 30 DAYS 0 06/24/2023 Active pregabalin 100 mg oral capsule (20 sources) [...] on above: TAKE 1 CAPSULE BY MO [facility] 3 TIMES A DAY FOR 30 DAYS TAKE 1 CAPSULE BY MO [facility] 3 TIMES A DAY take 1 capsule by [facility] three times a day 1000 ml sodium chloride 9 mg/ml injection (1 source) Start: 0.9 % sodium chloride infusion thiamine 100 mg oral tablet (5 sources) Start: End: take 1 tablet by mouth once daily before mealtime thiamine 100 mg tablet Take 1 tablet (100 mg) by mouth once daily in the morning. Take before meals. 0 06/01/2023 07/13/2023 Discontinued (Other) topiramate 25 mg oral tablet (11 sources) Start: End: take 1 tablet by mouth twice daily topiramate (TOPAMAX) 25 mg tablet Indications: Other chronic pain Take 1 tablet by mouth two times a day. 180 tablet 0 05/26/2023 08/24/2023 Active Comment on above: Take 1 tablet by [facility] two times a day. triamcinolone acetonide 0.25 mg/ml topical lotion (5 sources) Corticosteroid Start: 023 triamcinolone acetonide 0.025 % lotion 1 Application. 0 06/23/2022 Active Vitamin D 50 MCG (1999) (4 sources) take 1 tablet by mouth every week Vitamin D 50 MCG (1999) 1 tablet Orally weekly Active Completed/Discontinued Medications Medication Drug Class(es) Dates Sig (Normalized) Sig (Original) acetaminophen 500 mg oral tablet (20 sources) acetaminophen (T YLENOL) 500 mg tablet Take 1,000 mg by mouth. 0 Active acetaminophen (T ylenol) 325 MG tablet every 4 (four) hours. 0 Active acetaminophen (T YLENOL) 500 mg tablet Take 1,000 mg by mouth. 0 Active Comment on above: Take 1,000 mg by kristal th. acyclovir 400 mg oral tablet (20 sources) Herpesvirus Nucleoside Analog DNA Polymerase Inhibitor, Herpes Simplex Virus Nucleoside Analog DNA Polymerase Inhibitor, Herpes Zoster Virus Nucleoside Analog DNA Polymerase Inhibitor Start: 10-04-19 End: 04-26-20 take 1 tablet by mouth once daily acyclovir (ZOVIRAX) 400 mg tablet Take 400 mg by mouth once daily. 0 10/03/2021 04/26/2023 Discontinued (Discontinued by Patient) Comment on above: Take 400 mg by mouth once daily. aspirin 81 mg chewable tablet (20 sources) Platelet Aggregation Inhibitor, Nonsteroidal Anti-inflammatory Drug aspirin 81 mg chewable tablet Take 81 mg by mouth. 0 Active Comment on above: Take 81 mg by mouth. azaTHIOprine 50 mg oral tablet (20 sources) Purine Antimetabolite Start: 02-17-20 take 3 tablets by mouth three times [...] 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 jail 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 Take 2tab daily [...] ILL. 1 ml belimumab 200 mg/ml auto-injector (20 sources) B Lymphocyte Stimulator-specific Inhibitor Start: 2022 inject 200 mg by subcutaneous injection every week belimumab (BENLYSTA) 200 mg/mL auto-injector Indications: Other systemic lupus erythematosus with other organ involvement (HCC) Inject 200mg (1 pen) subcutaneously once weekly 12 mL 3 02/04/2023 Active Comment on above: Inject 200mg (1 pen) subcutaneously once weekly biotin 10 mg oral tablet (20 sources) End: 2022 Biotin 10 mg tab 2 0 04/26/2023 Discontinued (Discontinued by Patient) Comment on above: 2 cetirizine hydrochloride 10 mg oral capsule (3 sources) Histamine-1 Receptor Antagonist End: 2021 Cetirizine (ZYRTEC) 10 mg cap Take by [...] Comment on above: Take 1 capsule by [facility] once daily. ergocalciferol 1.25 mg oral capsule (20 sources) Provitamin D2 Compound Start: 06-12-2023 ergocalciferol 50,000 unit capsule (VITAMIN D2, DRISDOL) Indications: Vitamin D deficiency (take by mouth with food 3times a week, ONE CAPSULE ON Mondays, Fridays) FOR A TOTAL OF 10 WEEKS, then once a week thereafter. 34 capsule 1 06/12/2023 Active Start: 10-31-2022 End: 01-24-2023 take 1 capsule by mouth every week ergocalciferol (Vitamin D-2) 1.25 MG (04641 UT) capsule Take 1 capsule (50,000 Units) [...] 0 03/06/2021 Active take 1 capsule by [facility] every week ergocalciferol (Vitamin D2) 1.25 MG (93292 UT) capsule Take 50,000 Units by mouth [...] ON Mondays, Fridays) FOR A TOTAL OF 10 WEEKS, then once a week thereafter. famotidine 20 mg oral tablet (2 sources) [...] 20 mg by mouth daily at bedtime. folic acid 1 mg oral tablet (20 sources) Start: 2021 End: 2022 take 1 tablet by mouth once daily folic acid 1 mg tablet TAKE 1 TABLET BY MOUTH EVERY DAY 90 tablet 3 01/15/2023 Active Comment on above: Take 1 tablet by kristal th once daily. TAKE 1 TABLET BY KRISTAL TH EVERY DAY hydroxychloroquine sulfate 200 mg oral tablet (20 sources) Antimalarial, Antirheumatic Agent Start: 2022 hydrOXYchloroQUINE (PLAQUENIL) 200 mg tablet Indications: CHRISTIAN [...] WHILE OUTDOORS/OPHTHAMOLOGY EVERY 6-12 MONTHS WHILE ON* ibuprofen 200 mg oral tablet (20 sources) Nonsteroidal Anti-inflammatory Drug ibuprofen (MOTRIN) 2 00 mg tablet Take 600 mg by mouth. 0 Active ibuprofen 200 MG tablet every 8 (eight) hours. 0 Active take 1 tablet by kristal th every six hours as needed for pain ibuprofen (ADVIL;MOTRIN) 200 MG tablet T jaqui 200 mg by mouth every 6 hours as needed for Pain 0 Active Comment on above: Take 600 mg by mouth . omeprazole 40 mg delayed release oral capsule (3 sources) Proton Pump Inhibitor Start: End: 2 take 1 capsule by mouth twice daily [...] on above: Take 1 capsule by mo ut twice daily. predniSONE 10 mg oral tablet (20 sources) Start: 05-12-2023 predniSONE (DELTASONE) 10 mg tablet Indications: Other systemic lupus erythematosus with other organ involvement (HCC) Take 40mg daily x 5days, then decrease 5mg every 5days until 10mg daily thereafter 120 tablet 1 05/12/2023 Active Start: 05-12-2023 take 1 tablet by kristal th once daily predniSONE (Deltasone) 10 mg tablet Take 1 tablet (10 mg) by mouth once daily. 0 05/12/2023 Active Start: 08-17-2022 predniSONE (DE LTASONE) [...] 5mg every 5days until 10mg daily thereafter VIT/IRON FUMARATE/FA ( VITAMIN ORAL) (2 sources) [...] Problem Date Documented Date Episodic/Chronic Anxiety disorders (4 sources) Anxiety; Translations: [Anxiety disorder, unspecified] Onset: 06-09-2023 06-09-2023 Chronic Cardiac dysrhythmias (10 sources) Postural orthostatic tachycardia syndrome ; Translations: [POTS (postural orthostatic tachycardia syndrome)] Onset: 06-09-2023 Chronic Cardiac dysrhythmias (9 sources) Tachycardia, unspecified; Translations: [Tachycardia] Onset: 10-15-2021 Resolved: 11-26-2021 Episodic Conditions associated with dizziness or vertigo (3 sources) Dizziness; Translations: [Dizziness and giddiness] Onset: 06-01-2023 06-01-2023 Episodic Deficiency and other anemia (2 sources) Anemia of chronic disease; Translations: [Anemia in other chronic diseases classified elsewhere] Chronic Deficiency and other anemia (20 sources) Megaloblastic anemia due to vitamin B>12< deficiency; Translations: [Other megaloblastic anemias, not elsewhere classified] Onset: 03-04-2022 03-04-2022 Episodic Diabetes mellitus without complication (8 sources) Increased [...] esophagitis] Onset: 07-06-2023 07-06-2023 Chronic Essential hypertension (8 sources) Essential hypertension; Translations: [Essential (primary) hypertension] Onset: 06-09-2023 06-09-2023 Chronic Fever of unknown origin (1 source) Pyrexia of unknown origin; Translations: [Fever, unspecified] 04-26-2023 Episodic Headache; including migraine (3 sources) Headache; Translations: [Nonintractable episodic headache] Onset: 06-01-2023 06-01-2023 Episodic Malaise and fatigue (11 sources) Malaise and fatigue; Translations: [Chronic fatigue, unspecified] Onset: 06-10-2023 Chronic Menstrual disorders (17 sources) Excessive and frequent menstruation with irregular cycle; Translations: [Menometrorrhagia] Onset: 09-24-2022 Chronic Mood disorders (20 sources) Recurrent depression; Translations: [Major depressive disorder, recurrent, unspecified] Onset: 06-09-2023 06-18-2014 Chronic Nutritional deficiencies (20 sources) Vitamin D deficiency; Translations: [Vitamin D deficiency, unspecified] Onset: 03-06-2021 Chronic Osteoarthritis (20 sources) Degenerative joint disease involving multiple joints; 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] Onset: 03-05-2021 Chronic Osteoporosis (20 sources) 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; Translations: [Other osteoporosis without current pathological fracture] Onset: 02-04-2023 02-04-2023 Chronic Other aftercare (3 sources) Drug therapy status; Translations: [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] Episodic Other aftercare (1 source) Polypharmacy ; Translations: [Other buttermaker continuous churn (current) drug therapy] Episodic Other circulatory disease (20 sources) Raynaud's disease; Translations: [Raynaud's syndrome without [...] unspecified site] Onset: 07-06-2023 07-06-2023 Episodic Other hematologic conditions (20 sources) ESR raised; Translations: [Elevated erythrocyte sedimentation rate] Onset: 03-05-2021 Episodic Other inflammatory condition of skin (20 [...] (2 sources) Snoring; Translations: [Snoring] Episodic Other lower respiratory disease (3 sources) Dyspnea; Translations: [Shortness of breath] Onset: 07-13-2023 07-13-2023 Episodic Other lower respiratory disease (1 source) Shortness of breath; Translations: [Shortness of breath] Onset: 07-13-2023 Episodic Other nervous system disorders (20 sources) Chronic pain syndrome; Translations: [Chronic pain syndrome] 06-18-2014 Chronic Other nervous system disorders (2 sources) Chronic pain; Translations: [Other chronic pain] 04-26-2023 Chronic Other nervous system disorders (8 sources) Disorder of autonomic nervous system; Translations: [...] endocrine; and metabolic disorders (1 source) Morbid obesity; Translations: [Morbid (severe) obesity due to excess calories] 07-13-2023 Chronic Other nutritional; endocrine; and metabolic disorders (1 source) Morbid (severe) obesity due to excess calories; Translations: [Obesity, Class III, BMI 40-49.9 (morbid obesity) ([facility])] Onset: 09-07-2022 Chronic Other upper [...] MALIG NEOPLASM DIGESTIV ORGN] Onset: 09-06-2022 Episodic Residual codes; unclassified (1 source) Bilateral lower limb edema; Translations: [Localized edema] 07-13-2023 Episodic Spondylosis; intervertebral disc disorders; other back [...] - Pleurodynia] Onset: 09-17-2018 Unclassified (1 source) Supraventricular tachycardia, unspecified; Translations: [Supraventricular tachycardia, unspecified] Onset: 07-13-2023 Unclassified (1 source) Established Patient Follow-Up Onset: 04-26-2023 Viral infection (10 sources) Cytomegaloviral disease, unspecified; 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] Onset: 09-11-2021 Resolved: 11-26-2021 Episodic Past or Other Problems Problem Classification Problem Date Documented Date Episodic/Chronic Coma; stupor; and brain damage (20 sources) Daytime somnolence; Translations: [Somnolence] Onset: 05-20-2022 Episodic Deficiency and other anemia (1 source) Anemia, unspecified; Translations: [ANEMIA UNSPECIFIED] Onset: 03-11-2022 Episodic Deficiency and other anemia (15 sources) Anemia; Translations: [Anemia, unspecified] Onset: 03-11-2022 [...] sources) Drug therapy finding; Translations: [Other buttermaker continuous churn (current) drug therapy] Onset: 03-05-2021 Episodic Other aftercare (20 sources) H/O: high risk medication; Translations: [Other buttermaker continuous churn (current) drug therapy] Onset: 06-15-2022 06-15-2022 Episodic Other aftercare (1 source) Other buttermaker continuous churn (current) drug therapy; Translations: [[employer] 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 THERAPY] Onset: 03-23-2022 Episodic Other aftercare (20 sources) Long-term 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 systemic steroid; Translations: [MCC (current) use of 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] Onset: 02-04-2023 02-04-2023 Episodic Other connective tissue disease (20 sources) Pain in toe; Translations: [Pain in right toe(s)] Onset: 03-05-2021 Episodic Other connective tissue disease (20 sources) Fibromyalgia; Translations: [Fibromyalgia] Onset: 10-24-2021 Episodic Other connective tissue disease (3 sources) Other symptoms and signs involving the musculoskeletal system; Translations: [Other musculoskeletal symptoms referable to limbs] Onset: 03-05-2021 03-05-2021 Episodic Other hematologic conditions (9 sources) [...] Onset: 03-23-2022 Episodic Other non-traumatic joint disorders (20 sources) Bilateral wrist pain; Translations: [Pain in [...] with sciatica, left side] Onset: 05-31-2014 Episodic Unclassified (1 source) Onset: 07-13-2023 07-13-2023 Unclassified (1 source) Supraventricular tachycardia, unspecified; Translations: [Supraventricular tachycardia, unspecified] Onset: 07-13-2023 Results Test Name Value Interpretation Reference Range Facility CNNURSEon 07-13-2023 CNNURSE Normal [facility] ECG 12 Leadon 07-13-2023 ECG revealed normal sinus rhythm [facility] Work Phone: CNPNon 06-12-2023 CNPN Normal [facility] 25(OH)D3 SerPl-mCncon 2023 25-hydroxyvitamin D3 [Mass/Vol] 17.3 ng/mL Low 31.0-80.0 [facility] Comment on above: Order Comment: Speci men Type: BLOOD SPECIMENOrdering Facility: [facility] Address: [address] [place] [address] Result Comment: Clas sification of 25 [place] Vitamin D status:Deficiency/Insufficiency: < or = 30 ng/ml.Sufficiency/Optimal Levels: 31-80 ng/mLToxicity: > 100 ng/mL.Test performed by chemiluminescent immunoassay. Performed By: #### 1 989-3 ####[facility] LABCLIA [id number] [address] [place] CBC panel Auto (Bld)on 06-10 Erythrocyte distribution width (RBC) [Ratio] 14.5 % Normal 11.5-15.0 [facility] Comment on above: Order Comment: Speci men Type: BLOOD SPECIMENOrdering Facility: [facility] Address: [address] [place] [address] Performed By: #### 5 [id number] ####[facility] LABCLIA [id number] [place] [address] Hematocrit (Bld) [Volume fraction] 43.1 % Normal 36.0-46.0 [facility] Comment on above: Order Comment: Speci men Type: BLOOD SPECIMENOrdering Facility: [facility] Address: [address] [place] [address] Performed By: #### 5 [id number] ####[facility] LABCLIA [id number] [place] [address] Hemoglobin (Bld) [Mass/Vol] 13.9 g/dL Normal 11.5-15.5 [facility] Comment on above: Order Comment: Speci men Type: BLOOD SPECIMENOrdering Facility: [facility] Address: [address] [place] [address] Performed By: #### 5 [id number] ####[facility] LABCLIA [id number] [place] [address] MCH (RBC) [Entitic mass] 30.6 pg Normal 26.0-34.0 [facility] Comment on above: Order Comment: Speci men Type: BLOOD SPECIMENOrdering Facility: [facility] Address: [address] [place] [address] Performed By: #### 5 8410-2 ####[facility] LABIA [id number] [place] [address] MCHC (RBC) [Mass/Vol] 32.3 g/dL Normal 30.5-36.0 [facility] Comment on above: Order Comment: Speci men Type: BLOOD SPECIMENOrdering Facility: [facility] Address: [address] [place] [address] Performed By: #### 5 8410-2 ####[facility] LABIA [id number] [place] [address] MCV (RBC) [Entitic vol] 94.9 fL Normal 80.0-100.0 [facility] Comment on above: Order Comment: Speci men Type: BLOOD SPECIMENOrdering Facility: [facility] Address: [address] [place] [address] Performed By: #### 5 8410-2 ####[facility] LABCLIA [id number] [place] [address] Nucleated RBC (Bld) [#/Vol] 10*3/uL Normal <0.01 [facility] Comment on above: Order Comment: Speci men Type: BLOOD SPECIMENOrdering Facility: [facility] Address: [address] [place] [address] Performed By: #### 5 8410-2 ####[facility] LABCLIA [id number] [place] [address] Platelet mean volume (Bld) [Entitic vol] 9.5 fL Normal 9.0-12.7 [facility] Comment on above: Order Comment: Speci men Type: BLOOD SPECIMENOrdering Facility: [facility] Address: [address] [place] [address] Performed By: #### 5 8410-2 ####[facility] LABCLIA [id number] [place] [address] Platelets (Bld) [#/Vol] 320 10*3/uL Normal 150-400 [facility] Comment on above: Order Comment: Speci men Type: BLOOD SPECIMENOrdering Facility: [facility] Address: [address] [place] [address] Performed By: #### 5 8410-2 ####[facility] LABIA [id number] [place] [address] RBC (Bld) [#/Vol] 4.54 10*6/uL Normal 3.90-5.20 [facility] Comment on above: Order Comment: Speci men Type: BLOOD SPECIMENOrdering Facility: [facility] Address: [address] [place] [address] Performed By: #### 5 8410-2 ####[facility] LABIA [id number] [place] [address] WBC (Bld) [#/Vol] 15.15 10*3/uL High 3.70-11.00 [facility] Comment on above: Order Comment: Speci men Type: BLOOD SPECIMENOrdering Facility: [facility] Address: [address] [place] [address] Performed By: #### 5 8410-2 ####[facility] LABIA [id number] [place] [address] CNNURSEon 06-10-2023 CNNURSE Normal [facility] CNOVSPon 06-10-2023 CNOVSP Normal [facility] CRP SerPl-mCncon 06-10-2023 CRP [Mass/Vol] mg/L Normal <0.9 [facility] Comment on above: Order Comment: Speci men Type: BLOOD SPECIMENOrdering Facility: [facility] Address: [address] [place] [address] Performed By: #### 1 988-5 ####[facility] LABCLIA [id number] [facility] [id number] [place] [id number] [facility] Comprehensive metabolic 2000 panelon 06-10-2023 Albumin [Mass/Vol] 4.1 g/dL Normal 3.9-4.9 [facility] Comment on above: Order Comment: Speci men Type: BLOOD SPECIMENOrdering Facility: [facility] Address: [address] [place] [address] Performed By: #### 2 4323-8 ####[facility] LABCLIA [id number] [place] [address] ALP [Catalytic activity/Vol] 72 U/L Normal 34-123 [facility] Comment on above: Order Comment: Speci men Type: BLOOD SPECIMENOrdering Facility: [facility] Address: [address] [place] [address] Performed By: #### 2 4323-8 ####[facility] LABCLIA [id number] [place] [address] ALT [Catalytic activity/Vol] 22 U/L Normal 7-38 [facility] Comment on above: Order Comment: Speci men Type: BLOOD SPECIMENOrdering Facility: [facility] Address: [address] [place] [address] Performed By: #### 2 4323-8 ####[facility] LABCLIA [id number] [place] [address] Anion gap [Moles/Vol] 10 mmol/L Normal 9-18 [facility] Comment on above: Order Comment: Speci men Type: BLOOD SPECIMENOrdering Facility: [facility] Address: [address] [place] [address] Performed By: #### 2 4323-8 ####[facility] LABCLIA [id number] [place] [address] AST [Catalytic activity/Vol] 9 U/L Low 13-35 [facility] Comment on above: Order Comment: Speci men Type: BLOOD SPECIMENOrdering Facility: [facility] Address: [address] [place] [address] Performed By: #### 2 4323-8 ####[facility] LABCLIA [id number] [place] [address] Bilirubin [Mass/Vol] 0.2 mg/dL Normal 0.2-1.3 [facility] Comment on above: Order Comment: Speci men Type: BLOOD SPECIMENOrdering Facility: [facility] Address: [address] [place] [address] Performed By: #### 2 4323-8 ####[facility] LABCLIA [id number] [place] [address] Calcium [Mass/Vol] 9.8 mg/dL Normal 8.5-10.2 [facility] Comment on above: Order Comment: Speci men Type: BLOOD SPECIMENOrdering Facility: [facility] Address: [address] [place] [address] Performed By: #### 2 4323-8 ####[facility] LABCLIA [id number] [place] [address] Chloride [Moles/Vol] 107 mmol/L High 97-105 [facility] Comment on above: Order Comment: Speci men Type: BLOOD SPECIMENOrdering Facility: [facility] Address: [address] [place] [address] Performed By: #### 2 4323-8 ####[facility] LABCLIA [id number] [place] [address] CO2 [Moles/Vol] 24 mmol/L Normal 22-30 [facility] Comment on above: Order Comment: Speci men Type: BLOOD SPECIMENOrdering Facility: [facility] Address: [address] [place] [address] Performed By: #### 2 4323-8 ####[facility] LABCLIA [id number] [place] [address] Creatinine [Mass/Vol] 0.80 mg/dL Normal 0.58-0.96 [facility] Comment on above: Order Comment: Speci men Type: BLOOD SPECIMENOrdering Facility: [facility] Address: [address] [place] [address] Performed By: #### 2 4323-8 ####[facility] LABCLIA [id number] [place] [address] Creatinine and Glomerular filtration rate.predicted panel (S/P/Bld) 94 mL/min/1.73m??? Normal >=60 [facility] Comment on above: Order Comment: Speci men Type: BLOOD SPECIMENOrdering Facility: [facility] Address: [address] [place] [address] Result Comment: Erin mated Glomerular Filtration Rate [...] actual GFR. Performed By: #### 2 4323-8 ####[facility] LABCLIA [id number] [place] [address] Glucose [Mass/Vol] 98 mg/dL Normal 74-99 [facility] Comment on above: Order Comment: Semaj cortés Type: BLOOD SPECIMENOrdering Facility: [facility] Address: [address] [place] [address] Result Comment: The [place] Diabetes Association (ADA) provides guidance for cutoff [...] Standards of Medical Care in Diabetes 2016, [place] [employer]. Diabetes Care. 2016.39(Suppl 1). Performed By: #### 2 4323-8 ####[facility] LABCLIA [id number] [place] [address] Potassium [Moles/Vol] 3.6 mmol/L Low 3.7-5.1 [facility] Comment on above: Order Comment: Speci men Type: BLOOD SPECIMENOrdering Facility: [facility] Address: [address] [place] [address] Performed By: #### 2 4323-8 ####[facility] LABCLIA [id number] [place] [address] Protein [Mass/Vol] 7.0 g/dL Normal 6.3-8.0 [facility] Comment on above: Order Comment: Speci men Type: BLOOD SPECIMENOrdering Facility: [facility] Address: [address] [place] [address] Performed By: #### 2 4323-8 ####[facility] LABCLIA [id number] [place] [address] Sodium [Moles/Vol] 141 mmol/L Normal 136-144 [facility] Comment on above: Order Comment: Speci men Type: BLOOD SPECIMENOrdering Facility: [facility] Address: [address] [place] [address] Performed By: #### 2 4323-8 ####[facility] LABCLIA [id number] [place] [address] Urea nitrogen [Mass/Vol] 17 mg/dL Normal 7-21 [facility] Comment on above: Order Comment: Speci men Type: BLOOD SPECIMENOrdering Facility: [facility] Address: [address] [place] [address] Performed By: #### 2 4323-8 ####[facility] LABCLIA [id number] [place] [address] ESR Westergren method (Bld) [Velocity]on 06-10-2023 ESR (Bld) [Velocity] 28 mm/h High 0-20 [facility] Comment on above: Order Comment: Speci men Type: BLOOD SPECIMENOrdering Facility: [facility] Address: [address] [place] [address] Performed By: #### 4 537-7 ####[facility] LABCLIA [id number] [place] [address] [place] CBC W Auto Differential pane l (Bld)on 06-03-2023 Basophils (Bld) [#/Vol] 0.05 10*3/uL Normal <0.11 [facility] Comment on above: Order Comment: Speci men Type: BLOOD SPECIMENOrdering Facility: [facility] Address: [address] [place] [address] Performed By: #### 5 7021-8 ####[facility] LABIA [id number] [place] [address] Basophils/100 WBC (Bld) 0.4 % Normal [facility] Comment on above: Order Comment: Speci men Type: BLOOD SPECIMENOrdering Facility: [facility] Address: [address] [place] [address] Performed By: #### 5 7021-8 ####[facility] LABCLIA [id number] [place] [address] Differential cell count method Nom (Bld) Auto Normal [facility] Comment on above: Order Comment: Speci men Type: BLOOD SPECIMENOrdering Facility: [facility] Address: [address] [place] [address] Performed By: #### 5 7021-8 ####[facility] LABCLIA [id number] [place] [address] Eosinophils (Bld) [#/Vol] 0.14 10*3/uL Normal <0.46 [facility] Comment on above: Order Comment: Speci men Type: BLOOD SPECIMENOrdering Facility: [facility] Address: [address] [place] [address] Performed By: #### 5 7021-8 ####[facility] LABCLIA [id number] [place] [address] Eosinophils/100 WBC (Bld) 1.1 % Normal [facility] Comment on above: Order Comment: Speci men Type: BLOOD SPECIMENOrdering Facility: [facility] Address: [address] [place] [address] Performed By: #### 5 7021-8 ####[facility] LABCLIA [id number] [place] [address] Erythrocyte distribution width (RBC) [Ratio] 14.5 % Normal 11.5-15.0 [facility] Comment on above: Order Comment: Speci men Type: BLOOD SPECIMENOrdering Facility: [facility] Address: [address] [place] [address] Performed By: #### 5 7021-8 ####[facility] LABCLIA [id number] [place] [address] Hematocrit (Bld) [Volume fraction] 40.5 % Normal 36.0-46.0 [facility] Comment on above: Order Comment: Speci men Type: BLOOD SPECIMENOrdering Facility: [facility] Address: [address] [place] [address] Performed By: #### 5 7021-8 ####[facility] LABCLIA [id number] [place] [address] Hemoglobin (Bld) [Mass/Vol] 13.1 g/dL Normal 11.5-15.5 [facility] Comment on above: Order Comment: Speci men Type: BLOOD SPECIMENOrdering Facility: [facility] Address: [address] [place] [address] Performed By: #### 5 7021-8 ####[facility] LABCLIA [id number] [place] [address] Immature granulocytes (Bld) [#/Vol] 0.20 10*3/uL High <0.10 [facility] Comment on above: Order Comment: Speci men Type: BLOOD SPECIMENOrdering Facility: [facility] Address: [address] [place] [address] Performed By: #### 5 7021-8 ####[facility] LABCLIA [id number] [place] [address] Immature granulocytes/100 WBC (Bld) 1.6 % Normal [facility] Comment on above: Order Comment: Speci men Type: BLOOD SPECIMENOrdering Facility: [facility] Address: [address] [place] [address] Performed By: #### 5 7021-8 ####[facility] LABCLIA [id number] [place] [address] Lymphocytes (Bld) [#/Vol] 4.13 10*3/uL High 1.00-4.00 [facility] Comment on above: Order Comment: Speci men Type: BLOOD SPECIMENOrdering Facility: [facility] Address: [address] [place] [address] Performed By: #### 5 7021-8 ####[facility] LABCLIA [id number] [place] [address] Lymphocytes/100 WBC (Bld) 32.1 % Normal [facility] Comment on above: Order Comment: Speci men Type: BLOOD SPECIMENOrdering Facility: [facility] Address: [address] [place] [address] Performed By: #### 5 7021-8 ####[facility] LABCLIA [id number] [place] [address] MCH (RBC) [Entitic mass] 30.8 pg Normal 26.0-34.0 [facility] Comment on above: Order Comment: Speci men Type: BLOOD SPECIMENOrdering Facility: [facility] Address: [address] [place] [address] Performed By: #### 5 7021-8 ####[facility] LABCLIA [id number] [place] [address] MCHC (RBC) [Mass/Vol] 32.3 g/dL Normal 30.5-36.0 [facility] Comment on above: Order Comment: Speci men Type: BLOOD SPECIMENOrdering Facility: [facility] Address: [address] [place] [address] Performed By: #### 5 7021-8 ####[facility] LABCLIA [id number] [place] [address] MCV (RBC) [Entitic vol] 95.1 fL Normal 80.0-100.0 [facility] Comment on above: Order Comment: Speci men Type: BLOOD SPECIMENOrdering Facility: [facility] Address: [address] [place] [address] Performed By: #### 5 7021-8 ####[facility] LABIA [id number] [place] [address] Monocytes (Bld) [#/Vol] 0.79 10*3/uL Normal <0.87 [facility] Comment on above: Order Comment: Speci men Type: BLOOD SPECIMENOrdering Facility: [facility] Address: [address] [place] [address] Performed By: #### 5 7021-8 ####[facility] LABCLIA [id number] [place] [address] Monocytes/100 WBC (Bld) 6.1 % Normal [facility] Comment on above: Order Comment: Speci men Type: BLOOD SPECIMENOrdering Facility: [facility] Address: [address] [place] [address] Performed By: #### 5 7021-8 ####[facility] LABCLIA [id number] [place] [address] Neutrophils (Bld) [#/Vol] 7.56 10*3/uL High 1.45-7.50 [facility] Comment on above: Order Comment: Speci men Type: BLOOD SPECIMENOrdering Facility: [facility] Address: [address] [place] [address] Performed By: #### 5 7021-8 ####[facility] LABCLIA [id number] [place] [address] Neutrophils/100 WBC (Bld) 58.7 % Normal [facility] Comment on above: Order Comment: Speci men Type: BLOOD SPECIMENOrdering Facility: [facility] Address: [address] [place] [address] Performed By: #### 5 7021-8 ####[facility] LABCLIA [id number] [place] [address] Nucleated RBC (Bld) [#/Vol] 10*3/uL Normal <0.01 [facility] Comment on above: Order Comment: Speci men Type: BLOOD SPECIMENOrdering Facility: [facility] Address: [address] [place] [address] Performed By: #### 5 7021-8 ####[facility] LABCLIA [id number] [place] [address] Nucleated RBC/100 WBC (Bld) [Ratio] 0.0 /100 WBC Normal [facility] Comment on above: Order Comment: Speci men Type: BLOOD SPECIMENOrdering Facility: [facility] Address: [address] [place] [address] Performed By: #### 5 7021-8 ####[facility] LABCLIA [id number] [place] [address] Platelet mean volume (Bld) [Entitic vol] 9.7 fL Normal 9.0-12.7 [facility] Comment on above: Order Comment: Speci men Type: BLOOD SPECIMENOrdering Facility: [facility] Address: [address] [place] [address] Performed By: #### 5 7021-8 ####[facility] LABCLIA [id number] [place] [address] Platelets (Bld) [#/Vol] 261 10*3/uL Normal 150-400 [facility] Comment on above: Order Comment: Speci men Type: BLOOD SPECIMENOrdering Facility: [facility] Address: [address] [place] [address] Performed By: #### 5 7021-8 ####[facility] LABCLIA [id number] [place] [address] RBC (Bld) [#/Vol] 4.26 10*6/uL Normal 3.90-5.20 [facility] Comment on above: Order Comment: Speci men Type: BLOOD SPECIMENOrdering Facility: [facility] Address: [address] [place] [address] Performed By: #### 5 7021-8 ####[facility] LABCLIA [id number] [place] [address] WBC (Bld) [#/Vol] 12.87 10*3/uL High 3.70-11.00 [facility] Comment on above: Order Comment: Speci men Type: BLOOD SPECIMENOrdering Facility: [facility] Address: [address] [place] [address] Performed By: #### 5 7021-8 ####[facility] LABCLIA [id number] [place] [address] Comprehensive metabolic 2000 panelon 06-03-2023 Albumin [Mass/Vol] 4.0 g/dL Normal 3.9-4.9 [facility] Comment on above: Order Comment: Speci men Type: BLOOD SPECIMENOrdering Facility: [facility] Address: [address] [place] [address] Performed By: #### 2 4323-8 ####[facility] LABCLIA [id number] [place] [address] ALP [Catalytic activity/Vol] 73 U/L Normal 34-123 [facility] Comment on above: Order Comment: Speci men Type: BLOOD SPECIMENOrdering Facility: [facility] Address: [address] [place] [address] Performed By: #### 2 4323-8 ####[facility] LABCLIA [id number] [place] [address] ALT [Catalytic activity/Vol] 21 U/L Normal 7-38 [facility] Comment on above: Order Comment: Speci men Type: BLOOD SPECIMENOrdering Facility: [facility] Address: [address] [place] [address] Performed By: #### 2 4323-8 ####[facility] LABCLIA [id number] [place] [address] Anion gap [Moles/Vol] 10 mmol/L Normal 9-18 [facility] Comment on above: Order Comment: Speci men Type: BLOOD SPECIMENOrdering Facility: [facility] Address: [address] [place] [address] Performed By: #### 2 4323-8 ####[facility] LABCLIA [id number] [place] [address] AST [Catalytic activity/Vol] 10 U/L Low 13-35 [facility] Comment on above: Order Comment: Speci men Type: BLOOD SPECIMENOrdering Facility: [facility] Address: [address] [place] [address] Performed By: #### 2 4323-8 ####[facility] LABCLIA [id number] [place] [address] Bilirubin [Mass/Vol] 0.2 mg/dL Normal 0.2-1.3 [facility] Comment on above: Order Comment: Speci men Type: BLOOD SPECIMENOrdering Facility: [facility] Address: [address] [place] [address] Performed By: #### 2 4323-8 ####[facility] LABCLIA [id number] [place] [address] Calcium [Mass/Vol] 9.6 mg/dL Normal 8.5-10.2 [facility] Comment on above: Order Comment: Speci men Type: BLOOD SPECIMENOrdering Facility: [facility] Address: [address] [place] [address] Performed By: #### 2 4323-8 ####[facility] LABCLIA [id number] [place] [address] Chloride [Moles/Vol] 108 mmol/L High 97-105 [facility] Comment on above: Order Comment: Speci men Type: BLOOD SPECIMENOrdering Facility: [facility] Address: [address] [place] [address] Performed By: #### 2 4323-8 ####[facility] LABCLIA [id number] [place] [address] CO2 [Moles/Vol] 24 mmol/L Normal 22-30 [facility] Comment on above: Order Comment: Speci men Type: BLOOD SPECIMENOrdering Facility: [facility] Address: [address] [place] [address] Performed By: #### 2 4323-8 ####[facility] LABCLIA [id number] [place] [address] Creatinine [Mass/Vol] 0.70 mg/dL Normal 0.58-0.96 [facility] Comment on above: Order Comment: Speci men Type: BLOOD SPECIMENOrdering Facility: [facility] Address: [address] [place] [address] Performed By: #### 2 4323-8 ####[facility] LABIA [id number] [place] [address] Creatinine and Glomerular filtration rate.predicted panel (S/P/Bld) 111 mL/min/1.73m??? Normal >=60 [facility] Comment on above: Order Comment: Speci men Type: BLOOD SPECIMENOrdering Facility: [facility] Address: [address] [place] [address] Result Comment: Erin mated Glomerular Filtration Rate [...] actual GFR. Performed By: #### 2 4323-8 ####[facility] LABCLIA [id number] [place] [address] Glucose [Mass/Vol] 106 mg/dL High 74-99 [facility] Comment on above: Order Comment: Semaj cortés Type: BLOOD SPECIMENOrdering Facility: [facility] Address: [address] [place] [address] Result Comment: The [place] Diabetes Association (ADA) provides guidance for cutoff [...] Standards of Medical Care in Diabetes 2016, [place] [employer]. Diabetes Care. 2016.39(Suppl 1). Performed By: #### 2 4323-8 ####[facility] LABCLIA [id number] [place] [address] Potassium [Moles/Vol] 4.0 mmol/L Normal 3.7-5.1 [facility] Comment on above: Order Comment: Semaj cortés Type: BLOOD SPECIMENOrdering Facility: [facility] Address: [address] [place] [address] Performed By: #### 2 4323-8 ####[facility] LABCLIA [id number] [place] [address] Protein [Mass/Vol] 6.8 g/dL Normal 6.3-8.0 [facility] Comment on above: Order Comment: Speci men Type: BLOOD SPECIMENOrdering Facility: [facility] Address: [address] [place] [address] Performed By: #### 2 4323-8 ####[facility] LABCLIA [id number] [place] [address] Sodium [Moles/Vol] 142 mmol/L Normal 136-144 [facility] Comment on above: Order Comment: Speci men Type: BLOOD SPECIMENOrdering Facility: [facility] Address: [address] [place] [address] Performed By: #### 2 4323-8 ####[facility] LABCLIA [id number] [place] [address] Urea nitrogen [Mass/Vol] 12 mg/dL Normal 7-21 [facility] Comment on above: Order Comment: Speci men Type: BLOOD SPECIMENOrdering Facility: [facility] Address: [address] [place] [address] Performed By: #### 2 4323-8 ####[facility] LABCLIA [id number] [place] [address] ESR Westergren method (Bld) [Velocity]on 06-03-2023 ESR (Bld) [Velocity] 35 mm/h High 0-20 [facility] Comment on above: Order Comment: Speci men Type: BLOOD SPECIMENOrdering Facility: [facility] Address: [address] [place] [address] Performed By: #### 4 537-7 ####[facility] LABCLIA [id number] [place] [id number] [place] Ferritin SerPl-mCncon 2023 Ferritin [Mass/Vol] 23.4 ng/mL Normal 14.7-205.1 [facility] Comment on above: Order Comment: Speci men Type: BLOOD SPECIMENOrdering Facility: [facility] Address: [address] [place] [address] Performed By: #### 5 0190-8, 2132-01, 2275-08, 2283-12 ####[facility] LABCLIA [id number] [place] [id number] [place] Folate SerPl-mCncon 06-03-19 Folate [Mass/Vol] 8.2 ng/mL Normal >4.7 [facility] Comment on above: Order Comment: Speci men Type: BLOOD SPECIMENOrdering Facility: [facility] Address: [address] [place] [address] Performed By: #### 5 0190-8, 2132-01, 2275-08, 2283-12 ####[facility] LABCLIA [id number] [place] [address] [place] Iron and Iron binding capaci ty panelon 06-03-2023 Iron [Mass/Vol] 67 ug/dL Normal 41-186 [facility] Comment on above: Order Comment: Speci men Type: BLOOD SPECIMENOrdering Facility: [facility] Address: [address] [place] [address] Performed By: #### 5 0190-8, 2132-01, 2275-08, 2283-12 ####[facility] LABCLIA [id number] [place] [address] [place] Iron binding capacity [Mass/Vol] 395 ug/dL High 232-386 [facility] Comment on above: Order Comment: Speci men Type: BLOOD SPECIMENOrdering Facility: [facility] Address: [address] [place] [address] Performed By: #### 5 0190-8, 2132-01, 2275-08, 2283-12 ####[facility] LABCLIA [id number] [place] [address] [place] Iron/TIBC [Molar ratio] 17.0 % Normal 15.0-57.0 [facility] Comment on above: Order Comment: Speci men Type: BLOOD SPECIMENOrdering Facility: [facility] Address: [address] [facility] [address] Performed By: #### 5 0190-8, 2131-9, 6-4, 8 ####[facility] LABCLIA [id number] [address] [place] Vit B12 SerPl-ncon 024 Cobalamin (Vitamin B12) [Mass/Vol] 428 pg/mL Normal 232-1245 [facility] Comment on above: Order Comment: Speci men Type: BLOOD SPECIMENOrdering Facility: [facility] Address: [address] [place] [address] Performed By: #### 5 0190-8, 9, 6-4, 8 ####[facility] LABCLIA [id number] [address] [place] CNNURSEon 05-10-2023 CNNURSE Normal [facility] XR CERVICAL SPINE COMPLETE 4 [...] Normal Not Available CNPNon 04-22-2023 CNPN Normal [facility] CNNURSEon 04-16-2023 CNNURSE Normal [facility] CNOVSPon 04-16-2023 CNOVSP Normal [facility] CBC W Auto Differential pane l (Bld)on 04-09-2023 Basophils (Bld) [#/Vol] 0.05 10*3/uL Normal <0.11 [facility] Comment on above: Order Comment: Speci men Type: BLOOD SPECIMENOrdering Facility: [facility] Address: [address] [place] [address] Performed By: #### 5 7021-8 ####[facility] LABCLIA [id number] [place] [address] Basophils/100 WBC (Bld) 0.5 % Normal [facility] Comment on above: Order Comment: Speci men Type: BLOOD SPECIMENOrdering Facility: [facility] Address: [address] [place] [address] Performed By: #### 5 7021-8 ####[facility] LABCLIA [id number] [place] [address] Differential cell count method Nom (Bld) Auto Normal [facility] Comment on above: Order Comment: Speci men Type: BLOOD SPECIMENOrdering Facility: [facility] Address: [address] [place], [place] [address] Performed By: #### 5 7021-8 ####[facility] LABCLIA [id number] [place] [address] Eosinophils (Bld) [#/Vol] 0.09 10*3/uL Normal <0.46 [facility] Comment on above: Order Comment: Speci men Type: BLOOD SPECIMENOrdering Facility: [facility] Address: [address] [place] [address] Performed By: #### 5 7021-8 ####[facility] LABCLIA [id number] [place] [address] Eosinophils/100 WBC (Bld) 0.9 % Normal [facility] Comment on above: Order Comment: Speci men Type: BLOOD SPECIMENOrdering Facility: [facility] Address: [address] [place] [address] Performed By: #### 5 7021-8 ####[facility] LABCLIA [id number] [place] [address] Erythrocyte distribution width (RBC) [Ratio] 14.8 % Normal 11.5-15.0 [facility] Comment on above: Order Comment: Speci men Type: BLOOD SPECIMENOrdering Facility: [facility] Address: [address] [place] [address] Performed By: #### 5 7021-8 ####[facility] LABCLIA [id number] [place] [address] Hematocrit (Bld) [Volume fraction] 41.1 % Normal 36.0-46.0 [facility] Comment on above: Order Comment: Speci men Type: BLOOD SPECIMENOrdering Facility: [facility] Address: [address] [place] [address] Performed By: #### 5 7021-8 ####[facility] LABCLIA [id number] [place] [address] Hemoglobin (Bld) [Mass/Vol] 13.1 g/dL Normal 11.5-15.5 [facility] Comment on above: Order Comment: Speci men Type: BLOOD SPECIMENOrdering Facility: [facility] Address: [address] [place] [address] Performed By: #### 5 7021-8 ####[facility] LABCLIA [id number] [place] [address] Immature granulocytes (Bld) [#/Vol] 0.05 10*3/uL Normal <0.10 [facility] Comment on above: Order Comment: Speci men Type: BLOOD SPECIMENOrdering Facility: [facility] Address: [address] [place] [address] Performed By: #### 5 7021-8 ####[facility] LABCLIA [id number] [place] [address] Immature granulocytes/100 WBC (Bld) 0.5 % Normal [facility] Comment on above: Order Comment: Speci men Type: BLOOD SPECIMENOrdering Facility: [facility] Address: [address] [place] [address] Performed By: #### 5 7021-8 ####[facility] LABCLIA [id number] [place] [address] Lymphocytes (Bld) [#/Vol] 2.90 10*3/uL Normal 1.00-4.00 [facility] Comment on above: Order Comment: Speci men Type: BLOOD SPECIMENOrdering Facility: [facility] Address: [address] [place] [address] Performed By: #### 5 7021-8 ####[facility] LABCLIA [id number] [place] [address] Lymphocytes/100 WBC (Bld) 28.9 % Normal [facility] Comment on above: Order Comment: Speci men Type: BLOOD SPECIMENOrdering Facility: [facility] Address: [address] [place] [address] Performed By: #### 5 7021-8 ####[facility] LABCLIA [id number] [place] [address] MCH (RBC) [Entitic mass] 30.5 pg Normal 26.0-34.0 [facility] Comment on above: Order Comment: Speci men Type: BLOOD SPECIMENOrdering Facility: [facility] Address: [address] [place] [address] Performed By: #### 5 7021-8 ####[facility] LABCLIA [id number] [place] [address] MCHC (RBC) [Mass/Vol] 31.9 g/dL Normal 30.5-36.0 [facility] Comment on above: Order Comment: Speci men Type: BLOOD SPECIMENOrdering Facility: [facility] Address: [address] [place] [address] Performed By: #### 5 7021-8 ####[facility] LABIA [id number] [place] [address] MCV (RBC) [Entitic vol] 95.8 fL Normal 80.0-100.0 [facility] Comment on above: Order Comment: Speci men Type: BLOOD SPECIMENOrdering Facility: [facility] Address: [address] [place] [address] Performed By: #### 5 7021-8 ####[facility] LABCLIA [id number] [place] [address] Monocytes (Bld) [#/Vol] 0.54 10*3/uL Normal <0.87 [facility] Comment on above: Order Comment: Speci men Type: BLOOD SPECIMENOrdering Facility: [facility] Address: [address] [place] [address] Performed By: #### 5 7021-8 ####[facility] LABIA [id number] [place] [address] Monocytes/100 WBC (Bld) 5.4 % Normal [facility] Comment on above: Order Comment: Speci men Type: BLOOD SPECIMENOrdering Facility: [facility] Address: [address] [place] [address] Performed By: #### 5 7021-8 ####[facility] LABCLIA [id number] [place] [address] Neutrophils (Bld) [#/Vol] 6.41 10*3/uL Normal 1.45-7.50 [facility] Comment on above: Order Comment: Speci men Type: BLOOD SPECIMENOrdering Facility: [facility] Address: [address] [place] [address] Performed By: #### 5 7021-8 ####[facility] LABCLIA [id number] [place] [address] Neutrophils/100 WBC (Bld) 63.8 % Normal [facility] Comment on above: Order Comment: Speci men Type: BLOOD SPECIMENOrdering Facility: [facility] Address: [address] [place] [address] Performed By: #### 5 7021-8 ####[facility] LABCLIA [id number] [place] [address] Nucleated RBC (Bld) [#/Vol] 10*3/uL Normal <0.01 [facility] Comment on above: Order Comment: Speci men Type: BLOOD SPECIMENOrdering Facility: [facility] Address: [address] [place] [address] Performed By: #### 5 7021-8 ####[facility] LABCLIA [id number] [place] [address] Nucleated RBC/100 WBC (Bld) [Ratio] 0.0 /100 WBC Normal [facility] Comment on above: Order Comment: Speci men Type: BLOOD SPECIMENOrdering Facility: [facility] Address: [address] [place] [address] Performed By: #### 5 7021-8 ####[facility] LABCLIA [id number] [place] [address] Platelet mean volume (Bld) [Entitic vol] 9.4 fL Normal 9.0-12.7 [facility] Comment on above: Order Comment: Speci men Type: BLOOD SPECIMENOrdering Facility: [facility] Address: [address] [place] [address] Performed By: #### 5 7021-8 ####[facility] LABIA [id number] [place] [address] Platelets (Bld) [#/Vol] 290 10*3/uL Normal 150-400 [facility] Comment on above: Order Comment: Speci men Type: BLOOD SPECIMENOrdering Facility: [facility] Address: [address] [place] [address] Performed By: #### 5 7021-8 ####[facility] LABIA [id number] [place] [address] RBC (Bld) [#/Vol] 4.29 10*6/uL Normal 3.90-5.20 [facility] Comment on above: Order Comment: Speci men Type: BLOOD SPECIMENOrdering Facility: [facility] Address: [address] [place] [address] Performed By: #### 5 7021-8 ####[facility] LABIA [id number] [place] [address] WBC (Bld) [#/Vol] 10.04 10*3/uL Normal 3.70-11.00 [facility] Comment on above: Order Comment: Speci men Type: BLOOD SPECIMENOrdering Facility: [facility] Address: [address] [place] [address] Performed By: #### 5 7021-8 ####[facility] LABIA [id number] [place] [address] Comprehensive metabolic 2000 panelon 04-09-2023 Albumin [Mass/Vol] 4.1 g/dL Normal 3.9-4.9 [facility] Comment on above: Order Comment: Speci men Type: BLOOD SPECIMENOrdering Facility: [facility] Address: [address] [place] [address] Performed By: #### 2 4323-8 ####[facility] LABCLIA [id number] [place] [address] ALP [Catalytic activity/Vol] 74 U/L Normal 34-123 [facility] Comment on above: Order Comment: Speci men Type: BLOOD SPECIMENOrdering Facility: [facility] Address: [address] [place] [address] Performed By: #### 2 4323-8 ####[facility] LABCLIA [id number] [place] [address] ALT [Catalytic activity/Vol] 17 U/L Normal 7-38 [facility] Comment on above: Order Comment: Speci men Type: BLOOD SPECIMENOrdering Facility: [facility] Address: [address] [place] [address] Performed By: #### 2 4323-8 ####[facility] LABCLIA [id number] [place] [address] Anion gap [Moles/Vol] 12 mmol/L Normal 9-18 [facility] Comment on above: Order Comment: Speci men Type: BLOOD SPECIMENOrdering Facility: [facility] Address: [address] [place] [address] Performed By: #### 2 4323-8 ####[facility] LABCLIA [id number] [place] [address] AST [Catalytic activity/Vol] 11 U/L Low 13-35 [facility] Comment on above: Order Comment: Speci men Type: BLOOD SPECIMENOrdering Facility: [facility] Address: [address] [place] [address] Performed By: #### 2 4323-8 ####[facility] LABCLIA [id number] [place] [address] Bilirubin [Mass/Vol] 0.2 mg/dL Normal 0.2-1.3 [facility] Comment on above: Order Comment: Speci men Type: BLOOD SPECIMENOrdering Facility: [facility] Address: [address] [place] [address] Performed By: #### 2 4323-8 ####[facility] LABCLIA [id number] [place] [address] Calcium [Mass/Vol] 9.4 mg/dL Normal 8.5-10.2 [facility] Comment on above: Order Comment: Speci men Type: BLOOD SPECIMENOrdering Facility: [facility] Address: [address] [place] [address] Performed By: #### 2 4323-8 ####[facility] LABCLIA [id number] [place] [address] Chloride [Moles/Vol] 106 mmol/L High 97-105 [facility] Comment on above: Order Comment: Speci men Type: BLOOD SPECIMENOrdering Facility: [facility] Address: [address] [place] [address] Performed By: #### 2 4323-8 ####[facility] LABCLIA [id number] [place] [address] CO2 [Moles/Vol] 26 mmol/L Normal 22-30 [facility] Comment on above: Order Comment: Speci men Type: BLOOD SPECIMENOrdering Facility: [facility] Address: [address] [place] [address] Performed By: #### 2 4323-8 ####[facility] LABCLIA [id number] [place] [address] Creatinine [Mass/Vol] 0.89 mg/dL Normal 0.58-0.96 [facility] Comment on above: Order Comment: Speci men Type: BLOOD SPECIMENOrdering Facility: [facility] Address: [address] [place] [address] Performed By: #### 2 4323-8 ####[facility] LABCLIA [id number] [place] [address] Creatinine and Glomerular filtration rate.predicted panel (S/P/Bld) 83 mL/min/1.73m??? Normal >=60 [facility] Comment on above: Order Comment: Semaj cortés Type: BLOOD SPECIMENOrdering Facility: [facility] Address: [address] [place] [address] Result Comment: Erin mated Glomerular Filtration Rate [...] actual GFR. Performed By: #### 2 4323-8 ####[facility] LABCLIA [id number] [place] [address] Glucose [Mass/Vol] 120 mg/dL High 74-99 [facility] Comment on above: Order Comment: Semaj cortés Type: BLOOD SPECIMENOrdering Facility: [facility] Address: [address] [place] [address] Result Comment: The [place] Diabetes Association (ADA) provides guidance for cutoff [...] Standards of Medical Care in Diabetes 2016, [place] [employer]. Diabetes Care. 2016.39(Suppl 1). Performed By: #### 2 4323-8 ####[facility] LABCLIA [id number] [place] [address] Potassium [Moles/Vol] 3.7 mmol/L Normal 3.7-5.1 [facility] Comment on above: Order Comment: Semaj cortés Type: BLOOD SPECIMENOrdering Facility: [facility] Address: [place] [address] Performed By: #### 2 4323-8 ####[facility] LABCLIA [id number] [place] [address] Protein [Mass/Vol] 6.7 g/dL Normal 6.3-8.0 [facility] Comment on above: Order Comment: Speci men Type: BLOOD SPECIMENOrdering Facility: [facility] Address: [address] [place] [address] Performed By: #### 2 4323-8 ####[facility] LABCLIA [id number] [place] [address] Sodium [Moles/Vol] 144 mmol/L Normal 136-144 [facility] Comment on above: Order Comment: Speci men Type: BLOOD SPECIMENOrdering Facility: [facility] Address: [address] [place] [address] Performed By: #### 2 4323-8 ####[facility] LABCLIA [id number] [place] [address] Urea nitrogen [Mass/Vol] 24 mg/dL High 7-21 [facility] Comment on above: Order Comment: Speci men Type: BLOOD SPECIMENOrdering Facility: [facility] Address: [address] [place] [address] Performed By: #### 2 4323-8 ####[facility] LABCLIA [id number] [place] [address] Ferritin SerPl-mCncon 2022 Ferritin [Mass/Vol] 21.2 ng/mL Normal 14.7-205.1 [facility] Comment on above: Order Comment: Speci men Type: BLOOD SPECIMENOrdering Facility: [facility] Address: [address] [place] [address] Performed By: #### 2 276-4, 2284-8, 77482-6, 2132-9 ####[facility] LABCLIA [id number] [place] [address] [address] [place] Folate SerPl-mCncon 04-09-20 23 Folate [Mass/Vol] 10.7 ng/mL Normal >4.7 [facility] Comment on above: Order Comment: Speci men Type: BLOOD SPECIMENOrdering Facility: [facility] Address: [address] [place] [address] Performed By: #### 2 276-4, 2284-8, 48156-8, 2132-9 ####[facility] LABIA [id number] [place] [address] [place] INSULIN ANTIBODY BLDon 04-09 Insulin Ab Qn (S) <0.4 Normal <0.4 [facility] Comment on above: Order Comment: Speci men Type: BLOOD SPECIMENOrdering Facility: [facility] Address: [address] [place] [address] Result Comment: Anti -insulin antibody test is used as an aid in diagnosis and prognosis of autoimmune diabetes mellitus in combination with other tests such as anti-GAD65 and anti-IA-2 antibody. A single negative result cannot rule out autoimmune diabetes mellitus. The test is not reliable in patients who had previously received exogenous insulin. Clinical correlation is required. Performed By: #### I NSLAB ####[facility] [id number] [place] [address] [place] INSULIN ANTIBODY, QUALITATIVE Negative Normal Negative [facility] Comment on above: Order Comment: Speci men Type: BLOOD SPECIMENOrdering Facility: [facility] Address: [address] [place] [address] Performed By: #### I NSLAB ####[facility] LABIA [id number] [place] [address] [place] Insulin SerPl-aCncon 023 Insulin Qn 266.5 u[IU]/mL High 3.0-25.0 [facility] Comment on above: Order Comment: Speci men Type: BLOOD SPECIMENOrdering Facility: [facility] Address: [address] [place] [address] Performed By: #### 2 0448-7 ####[facility] LABIA [id number] [place] [id number] [place] Iron and Iron binding capaci ty panelon 04-09-2023 Iron [Mass/Vol] 105 ug/dL Normal 41-186 [facility] Comment on above: Order Comment: Speci men Type: BLOOD SPECIMENOrdering Facility: [facility] Address: [address] [place] [address] Performed By: #### 2 276-4, 2284-8, 50967-6, 9 ####[facility] LABIA [id number] [place] [address] [place] Iron binding capacity [Mass/Vol] 414 ug/dL High 232-386 [facility] Comment on above: Order Comment: Speci men Type: BLOOD SPECIMENOrdering Facility: [facility] Address: [address] [place] [address] Performed By: #### 2 276-4, 2284-8, 23834-6, 9 ####[facility] [id number] [place] [address] [place] Iron/TIBC [Molar ratio] 25.4 % Normal 15.0-57.0 [facility] Comment on above: Order Comment: Speci men Type: BLOOD SPECIMENOrdering Facility: [facility] Address: [address] [place] [address] Performed By: #### 2 276-4, 2284-8, 82536-1, 9 ####[facility] [id number] [place] [address] [place] Vit B12 SerPl-mCncon 023 Cobalamin (Vitamin B12) [Mass/Vol] 370 pg/mL Normal 232-1245 [facility] Comment on above: Order Comment: Speci men Type: BLOOD SPECIMENOrdering Facility: [facility] Address: [address] [place] [address] Performed By: #### 2 276-4, 2284-8, 85972-1, 2132-9 ####[facility] LABCLIA [id number] [place] [id number] [place] CNNURSEon 03-19-2023 CNNURSE Normal [facility] CNNURSEon 03-11-2023 CNNURSE Normal [facility] CNPNon 03-01-2023 CNPN Normal [facility] CNNURSEon 02-19-2023 CNNURSE Normal [facility] CNOVSPon 02-19-2023 CNOVSP Normal [facility] B2 Microglob SerPl-mCncon Rkub-8-Xiadclkgspdub [Mass/Vol] 1.9 ug/mL Normal 0.8-2.4 [facility] Comment on above: Order Comment: Speci men Type: BLOOD SPECIMENOrdering Facility: [facility] Address: [address] [place] [address] Result Comment: Beta -2 Microglobulin test is performed using the [employer] immunoturbidimetric method. Results obtained with different methods or kits cannot be used interchangeably. Performed By: #### 1 952-1, 47635-8, 2276-4 ####[facility] LABCLIA [id number] [place] [address] [place] CBC W Auto Differential pane l (Bld)on 02-11-2023 Basophils (Bld) [#/Vol] 0.08 10*3/uL Normal <0.11 [facility] Comment on above: Order Comment: Speci men Type: BLOOD SPECIMENOrdering Facility: [facility] Address: [address] [place] [id number] Performed By: #### 5 7021-8 ####[facility] LABCLIA [id number] [place] [address] Basophils/100 WBC (Bld) 0.8 % Normal [facility] Comment on above: Order Comment: Speci men Type: BLOOD SPECIMENOrdering Facility: [facility] Address: [address] [place] [address] Performed By: #### 5 7021-8 ####[facility] LABCLIA [id number] [place] [address] Differential cell count method Nom (Bld) Auto Normal [facility] Comment on above: Order Comment: Speci men Type: BLOOD SPECIMENOrdering Facility: [facility] Address: [address] [place] [address] Performed By: #### 5 7021-8 ####[facility] LABCLIA [id number] [place] [address] Eosinophils (Bld) [#/Vol] 0.16 10*3/uL Normal <0.46 [facility] Comment on above: Order Comment: Speci men Type: BLOOD SPECIMENOrdering Facility: [facility] Address: [address] [place] [address] Performed By: #### 5 7021-8 ####[facility] LABCLIA [id number] [place] [address] Eosinophils/100 WBC (Bld) 1.6 % Normal [facility] Comment on above: Order Comment: Speci men Type: BLOOD SPECIMENOrdering Facility: [facility] Address: [address] [place] [address] Performed By: #### 5 7021-8 ####[facility] LABCLIA [id number] [place] [address] Erythrocyte distribution width (RBC) [Ratio] 14.6 % Normal 11.5-15.0 [facility] Comment on above: Order Comment: Speci men Type: BLOOD SPECIMENOrdering Facility: [facility] Address: [address] [place] [address] Performed By: #### 5 7021-8 ####[facility] LABCLIA [id number] [place] [address] Hematocrit (Bld) [Volume fraction] 41.0 % Normal 36.0-46.0 [facility] Comment on above: Order Comment: Speci men Type: BLOOD SPECIMENOrdering Facility: [facility] Address: [address] [place] [address] Performed By: #### 5 7021-8 ####[facility] LABCLIA [id number] [place] [address] Hemoglobin (Bld) [Mass/Vol] 13.2 g/dL Normal 11.5-15.5 [facility] Comment on above: Order Comment: Speci men Type: BLOOD SPECIMENOrdering Facility: [facility] Address: [address] [place] [address] Performed By: #### 5 7021-8 ####[facility] LABIA [id number] [place] [address] Immature granulocytes (Bld) [#/Vol] 0.07 10*3/uL Normal <0.10 [facility] Comment on above: Order Comment: Speci men Type: BLOOD SPECIMENOrdering Facility: [facility] Address: [address] [place] [address] Performed By: #### 5 7021-8 ####[facility] LABIA [id number] [place] [address] Immature granulocytes/100 WBC (Bld) 0.7 % Normal [facility] Comment on above: Order Comment: Speci men Type: BLOOD SPECIMENOrdering Facility: [facility] Address: [address] [place] [address] Performed By: #### 5 7021-8 ####[facility] LABIA [id number] [place] [address] Lymphocytes (Bld) [#/Vol] 2.29 10*3/uL Normal 1.00-4.00 [facility] Comment on above: Order Comment: Speci men Type: BLOOD SPECIMENOrdering Facility: [facility] [facility] Address: [address] [address] Performed By: #### 5 7021-8 ####[facility] LABCLIA [id number] [place] [address] Lymphocytes/100 WBC (Bld) 22.4 % Normal [facility] Comment on above: Order Comment: Speci men Type: BLOOD SPECIMENOrdering Facility: [facility] Address: [address] [place] [address] Performed By: #### 5 7021-8 ####[facility] LABCLIA [id number] [place] [address] MCH (RBC) [Entitic mass] 30.6 pg Normal 26.0-34.0 [facility] Comment on above: Order Comment: Speci men Type: BLOOD SPECIMENOrdering Facility: [facility] Address: [address] [place] [address] Performed By: #### 5 7021-8 ####[facility] LABIA [id number] [place] [address] MCHC (RBC) [Mass/Vol] 32.2 g/dL Normal 30.5-36.0 [facility] Comment on above: Order Comment: Speci men Type: BLOOD SPECIMENOrdering Facility: [facility] Address: [address] [place] [address] Performed By: #### 5 7021-8 ####[facility] LABCLIA [id number] [place] [address] MCV (RBC) [Entitic vol] 94.9 fL Normal 80.0-100.0 [facility] Comment on above: Order Comment: Speci men Type: BLOOD SPECIMENOrdering Facility: [facility] Address: [address] [place] [address] Performed By: #### 5 7021-8 ####[facility] LABIA [id number] [place] [address] Monocytes (Bld) [#/Vol] 0.62 10*3/uL Normal <0.87 [facility] Comment on above: Order Comment: Speci men Type: BLOOD SPECIMENOrdering Facility: [facility] Address: [address] [address] Performed By: #### 5 7021-8 ####[facility] LABCLIA [id number] [place] [address] Monocytes/100 WBC (Bld) 6.1 % Normal [facility] Comment on above: Order Comment: Speci men Type: BLOOD SPECIMENOrdering Facility: [facility] Address: [address] [address] Performed By: #### 5 7021-8 ####[facility] LABCLIA [id number] [place] [address] Neutrophils (Bld) [#/Vol] 6.99 10*3/uL Normal 1.45-7.50 [facility] Comment on above: Order Comment: Speci men Type: BLOOD SPECIMENOrdering Facility: [facility] Address: [address] [address] Performed By: #### 5 7021-8 ####[facility] LABCLIA [id number] [place] [address] Neutrophils/100 WBC (Bld) 68.4 % Normal [facility] Comment on above: Order Comment: Speci men Type: BLOOD SPECIMENOrdering Facility: [facility] Address: [address] Performed By: #### 5 7021-8 ####[facility] LABCLIA [id number] [place] [address] Nucleated RBC (Bld) [#/Vol] 10*3/uL Normal <0.01 [facility] Comment on above: Order Comment: Speci men Type: BLOOD SPECIMENOrdering Facility: [facility] Address: [address] [place] [address] Performed By: #### 5 7021-8 ####[facility] LABCLIA [id number] [place] [address] Nucleated RBC/100 WBC (Bld) [Ratio] 0.0 /100 WBC Normal [facility] Comment on above: Order Comment: Speci men Type: BLOOD SPECIMENOrdering Facility: [facility] Address: [address] [place] [address] Performed By: #### 5 7021-8 ####[facility] LABIA [id number] [place] [address] Platelet mean volume (Bld) [Entitic vol] 9.6 fL Normal 9.0-12.7 [facility] Comment on above: Order Comment: Speci men Type: BLOOD SPECIMENOrdering Facility: [facility] Address: [address] [place] [address] Performed By: #### 5 7021-8 ####[facility] LABIA [id number] [place] [address] Platelets (Bld) [#/Vol] 258 10*3/uL Normal 150-400 [facility] Comment on above: Order Comment: Speci men Type: BLOOD SPECIMENOrdering Facility: [facility] Address: [address] [place] [address] Performed By: #### 5 7021-8 ####[facility] LABIA [id number] [place] [address] RBC (Bld) [#/Vol] 4.32 10*6/uL Normal 3.90-5.20 [facility] Comment on above: Order Comment: Speci men Type: BLOOD SPECIMENOrdering Facility: [facility] Address: [address] [place] [address] Performed By: #### 5 7021-8 ####[facility] LABIA [id number] [place] [address] WBC (Bld) [#/Vol] 10.21 10*3/uL Normal 3.70-11.00 [facility] Comment on above: Order Comment: Speci men Type: BLOOD SPECIMENOrdering Facility: [facility] Address: [address] [place], [place] [address] Performed By: #### 5 7021-8 ####[facility] LABCLIA [id number] [place] [address] Calcium.ionized [Moles/Vol]o n 02-11-2023 Calcium.ionized (Bld) [Mass/Vol] 1.32 mmol/L High 1.08-1.30 [facility] Comment on above: Order Comment: Speci men Type: BLOOD SPECIMENOrdering Facility: [facility] Address: [address] [place] [address] Performed By: #### 1 995-0 ####[facility] LABIA [id number] [place] [address] [place] Calcium.ionized adjusted to pH 7.4 (Bld) [Moles/Vol] 1.27 mmol/L Normal 1.08-1.30 [facility] Comment on above: Order Comment: Speci men Type: BLOOD SPECIMENOrdering Facility: [facility] Address: [address] [place] [address] Performed By: #### 1 995-0 ####[facility] LABIA [id number] [place] [address] [place] Comprehensive metabolic 2000 panelon 02-11-2023 Albumin [Mass/Vol] 4.0 g/dL Normal 3.9-4.9 [facility] Comment on above: Order Comment: Speci men Type: BLOOD SPECIMENOrdering Facility: [facility] Address: [address] [place], [place] [address] Performed By: #### 2 4323-8, 2532-0, 2777-1, 3084-1 ####[facility] LABCLIA [id number] [place] [address] ALP [Catalytic activity/Vol] 75 U/L Normal 34-123 [facility] Comment on above: Order Comment: Speci men Type: BLOOD SPECIMENOrdering Facility: [facility] Address: [address] [address] Performed By: #### 2 4323-8, 2532-0, 2776-1, 3083-1 ####[facility] LABCLIA [id number] [place] [address] ALT [Catalytic activity/Vol] 21 U/L Normal 7-38 [facility] Comment on above: Order Comment: Speci men Type: BLOOD SPECIMENOrdering Facility: [facility] Address: [address] [place] [address] Performed By: #### 2 4323-8, 2532-0, 2776-1, 3083-1 ####[facility] LABIA [id number] [place] [address] Anion gap [Moles/Vol] 11 mmol/L Normal 9-18 [facility] Comment on above: Order Comment: Speci men Type: BLOOD SPECIMENOrdering Facility: [facility] Address: [address] [place] [address] Performed By: #### 2 4323-8, 2-0, 2776-, 3083- ####[facility] LABIA [id number] [place] [address] AST [Catalytic activity/Vol] 11 U/L Low 13-35 [facility] Comment on above: Order Comment: Speci men Type: BLOOD SPECIMENOrdering Facility: [facility] Address: [address] [place] [address] Performed By: #### 2 4323-8, 2532-0, 2776-1, 3083-1 ####[facility] LABIA [id number] [place] [address] Bilirubin [Mass/Vol] mg/dL Low 0.2-1.3 [facility] Comment on above: Order Comment: Speci men Type: BLOOD SPECIMENOrdering Facility: [facility] Address: [address] Performed By: #### 2 4323-8, 2532-0, 2777-1, 3084-1 ####[facility] LABCLIA [id number] [place] [address] Calcium [Mass/Vol] 9.7 mg/dL Normal 8.5-10.2 [facility] Comment on above: Order Comment: Speci men Type: BLOOD SPECIMENOrdering Facility: [facility] Address: [address] [address] Performed By: #### 2 4323-8, 2532-0, 2777-1, 3084-1 ####[facility] LABCLIA [id number] [place] [address] Chloride [Moles/Vol] 107 mmol/L High 97-105 [facility] Comment on above: Order Comment: Speci men Type: BLOOD SPECIMENOrdering Facility: [facility] Address: [address] [address] Performed By: #### 2 4323-8, 2532-0, 2777-1, 3083-1 ####[facility] LABCLIA [id number] [place] [address] CO2 [Moles/Vol] 23 mmol/L Normal 22-30 [facility] Comment on above: Order Comment: Speci men Type: BLOOD SPECIMENOrdering Facility: [facility] Address: [address] [address] Performed By: #### 2 4323-8, 2532-0, 2777-1, 3084-1 ####[facility] LABCLIA [id number] [place] [address] Creatinine [Mass/Vol] 0.76 mg/dL Normal 0.58-0.96 [facility] Comment on above: Order Comment: Speci men Type: BLOOD SPECIMENOrdering Facility: [facility] Address: [address] [address] Performed By: #### 2 4323-8, 2532-0, 2777-1, 3084-1 ####[facility] LABCLIA [id number] [place] [address] Creatinine and Glomerular filtration rate.predicted panel (S/P/Bld) 100 mL/min/1.73m??? Normal >=60 [facility] Comment on above: Order Comment: Semaj cortés Type: BLOOD SPECIMENOrdering Facility: [facility] Address: [address] [place] [address] Result Comment: Erin mated Glomerular Filtration Rate [...] By: #### 2 4323-8, 2532-0, 2777-1, 3084-1 ####[facility] LABCLIA [id number] [place] [address] Glucose [Mass/Vol] 164 mg/dL High 74-99 [facility] Comment on above: Order Comment: Semaj cortés Type: BLOOD SPECIMENOrdering Facility: [facility] Address: [address] [place] [address] Result Comment: The [place] Diabetes Association (ADA) provides guidance for cutoff [...] Standards of Medical Care in Diabetes 2016, [place] [employer] Association. Diabetes Care. 2016.39(Suppl 1). Performed By: #### 2 4323-8, 2532-0, 2777-1, 3084-1 ####[facility] LABIA [id number] [place] [address] Potassium [Moles/Vol] 4.0 mmol/L Normal 3.7-5.1 [facility] Comment on above: Order Comment: Speci men Type: BLOOD SPECIMENOrdering Facility: [facility] Address: [address] [address] Performed By: #### 2 4323-8, 2532-0, 2777-1, 3084-1 ####[facility] LABIA [id number] [place] [address] Protein [Mass/Vol] 6.5 g/dL Normal 6.3-8.0 [facility] Comment on above: Order Comment: Speci men Type: BLOOD SPECIMENOrdering Facility: [facility] Address: [address] [place] [address] Performed By: #### 2 4323-8, 2532-0, 7-1, 3084-1 ####[facility] [id number] [place] [address] Sodium [Moles/Vol] 141 mmol/L Normal 136-144 [facility] Comment on above: Order Comment: Speci men Type: BLOOD SPECIMENOrdering Facility: [facility] Address: [address] [address] Performed By: #### 2 4323-8, 2532-0, 2777-1, 3084-1 ####[facility] LABIA [id number] [place] [address] Urea nitrogen [Mass/Vol] 15 mg/dL Normal 7-21 [facility] Comment on above: Order Comment: Speci men Type: BLOOD SPECIMENOrdering Facility: [facility] Address: [address] [address] Performed By: #### 2 4323-8, 2532-0, 2777-1, 3084-1 ####[facility] LABCLIA [id number] [place] [address] Ferritin SerPl-mCncon 2022 Ferritin [Mass/Vol] 34.2 ng/mL Normal 14.7-205.1 [facility] Comment on above: Order Comment: Speci men Type: BLOOD SPECIMENOrdering Facility: [facility] Address: [address] [place] [address] Performed By: #### 1 952-1, 95001-0, 2276-4 ####[facility] LABCLIA [id number] [address] [place] Folate SerPl-mCncon 02-12-20 Folate [Mass/Vol] ng/mL Normal >4.7 [facility] Comment on above: Order Comment: Speci men Type: BLOOD SPECIMENOrdering Facility: [facility] Address: [address] [place] [address] Result Comment: A re sult of > 20 ng/mL is not necessarily indicative of a pathologic or treatable condition: it reflects a limitation of the test methodology.Assay reference range: 4.8 to 24.2 ng/mL. Suitable for detection of folate deficiency.Reference:Folate III (Folate III) [package insert V 1.0 Andorran]. [facility], [place], [place]: March 2015. Performed By: #### 2 885-2, 2132-9, 2284-8 ####[facility] LABIA [id number] [address] [place] IMMUNOFIXATION SCREEN, SERUM on 02-11-2023 MPA RESULT No M protein is identified. Normal No M protein is identified. [facility] Comment on above: Order Comment: Speci men Type: BLOOD SPECIMENOrdering Facility: [facility] Address: [address] [place] [address] Performed By: #### I [facility] ####[facility] LABCLIA [id number] [address] STAFF REVIEW (MPA) Reviewed by Daphne vyas M.D. Normal [facility] Comment on above: Order Comment: Speci men Type: BLOOD SPECIMENOrdering Facility: [facility] Address: [address] [place] [address] Performed By: #### I FESC ####[facility] LABCLIA [id number] [place] [address] [place] IMMUNOGLOBULINS GAMon 2022 IgA [Mass/Vol] 178 mg/dL Normal 70-400 [facility] Comment on above: Order Comment: Speci men Type: BLOOD SPECIMENOrdering Facility: [facility] Address: [address] [place] [address] Performed By: #### S ERIMM ####[facility] LABCLIA [id number] [address] [place] IgG [Mass/Vol] 534 mg/dL Low 700-1600 [facility] Comment on above: Order Comment: Speci men Type: BLOOD SPECIMENOrdering Facility: [facility] Address: [address] [place] [address] Performed By: #### S ERIMM ####[facility] LABCLIA [id number] [address] [place] IgM [Mass/Vol] 453 mg/dL High 40-230 [facility] Comment on above: Order Comment: Speci men Type: BLOOD SPECIMENOrdering Facility: [facility] Address: [address] [place] [address] Performed By: #### S ERIMM ####[facility] LABIA [id number] [place] [address] [place] Iron and Iron binding capaci ty panelon 02-11-2023 Iron [Mass/Vol] 55 ug/dL Normal 41-186 [facility] Comment on above: Order Comment: Speci men Type: BLOOD SPECIMENOrdering Facility: [facility] Address: [address] [address] Performed By: #### 1 952-1, 74522-5, 2276-4 ####[facility] LABCLIA [id number] [place] [address] [place] Iron binding capacity [Mass/Vol] 339 ug/dL Normal 232-386 [facility] Comment on above: Order Comment: Speci men Type: BLOOD SPECIMENOrdering Facility: [facility] Address: [address] [address] Performed By: #### 1 952-1, 06737-0, 6-4 ####[facility] LABCLIA [id number] [place] [address] [place] Iron/TIBC [Molar ratio] 16.2 % Normal 15.0-57.0 [facility] Comment on above: Order Comment: Speci men Type: BLOOD SPECIMENOrdering Facility: [facility] Address: [address] [place] [address] Performed By: #### 1 952-1, 11861-5, 2275-4 ####[facility] LABIA [id number] [place] [address] [place] KAPPA/FARMER,FREE,SERon 2022 Immunoglobulin light chains.kappa.free (S) [Mass/Vol] 13.1 mg/L Normal 3.3-19.4 [facility] Comment on above: Order Comment: Speci [facility] Type: BLOOD SPECIMENOrdering Facility: [facility] Address: [address] [place] [address] Result Comment: Rare ly, increased serum free light chains levels may not be detected or accurately quantified due to prozone phenomenon or in high viscosity samples using this immunoturbidimetric assay. Correlation with other laboratory results and clinical findings is recommended.The [place] Free Light Chain was performed using the Binding Site Optilite immunoturbidimetric method. Result obtained with different assay methods or kits cannot be used interchangeably. Performed By: #### K LFRS ####[facility] LABCLIA [id number] [address] Immunoglobulin light chains.kappa/Immunog lobulin light chains.lambda (S) [Mass ratio] 1.22 Normal 0.26-1.65 [facility] Comment on above: Order Comment: Speci men Type: BLOOD SPECIMENOrdering Facility: [facility] Address: [address] [place] [address] Performed By: #### K LFRS ####[facility] [id number] [address] Immunoglobulin light chains.lambda.free [Mass/Vol] 10.7 mg/L Normal 5.7-26.3 [facility] Comment on above: Order Comment: Speci [facility] Type: BLOOD SPECIMENOrdering Facility: [facility] Address: [address] [place] [address] Result Comment: Rare ly, increased serum free [...] used interchangeably. Performed By: #### K LFRS ####[facility] LABIA [id number] [place] [address] [place] LDH SerPl-cCncon 02-11-2023 LDH [Catalytic activity/Vol] 190 U/L Normal 135-214 [facility] Comment on above: Order Comment: Speci men Type: BLOOD SPECIMENOrdering Facility: [facility] Address: [address] [place] [address] Result Comment: Hemo lysis present. The origin [...] By: #### 2 4323-8, 2532-0, 2777-1, 3084-1 ####[facility] LABCLIA [id number] [place] [address] PROTEIN ELECTROPHORESIS SERU M (P)on 02-11-2023 Albumin [Mass/Vol] 3.61 g/dL Normal 3.43-5.41 [facility] Comment on above: Order Comment: Speci men Type: BLOOD SPECIMENOrdering Facility: [facility] Address: [address] [place] [address] Performed By: #### L [id number] ####[facility] LABCLIA [id number] [place] [address] [place] Alpha 1 globulin Elph [Mass/Vol] 0.31 g/dL Normal 0.18-0.43 [facility] Comment on above: Order Comment: Speci men Type: BLOOD SPECIMENOrdering Facility: [facility] Address: [address] [place] [address] Performed By: #### L [id number] ####[facility] LABCLIA [id number] [address] [place] Alpha 2 globulin Elph [Mass/Vol] 0.76 g/dL Normal 0.42-0.98 [facility] Comment on above: Order Comment: Speci men Type: BLOOD SPECIMENOrdering Facility: [facility] Address: [address] [address] Performed By: #### L [id number] ####[facility] LABCLIA [id number] [place] [address] [place] Beta globulin Elph [Mass/Vol] 0.85 g/dL Normal 0.61-1.17 [facility] Comment on above: Order Comment: Speci men Type: BLOOD SPECIMENOrdering Facility: [facility] Address: [address] [place] [address] Performed By: #### L [id number] ####[facility] LABCLIA [id number] [place] [address] [place] Gamma globulin Elph [Mass/Vol] 0.66 g/dL Normal 0.53-1.51 [facility] Comment on above: Order Comment: Speci men Type: BLOOD SPECIMENOrdering Facility: [facility] Address: [address] [place] [address] Performed By: #### L [id number] ####[facility] LABIA [id number] [address] [place] M-PROTEIN LOCATION Normal [facility] Comment on above: Order Comment: Speci men Type: BLOOD SPECIMENOrdering Facility: [facility] Address: [address] [place] [address] Result Comment: Not Applicable. Performed By: #### L [id number] ####[facility] LABIA [id number] [place] [address] [place] Protein Fractions [Interp] No definitive M protein is identified on protein electrophoresis. Normal No definitive M protein is identified on protein electrophor esis. [facility] Comment on above: Order Comment: Speci men Type: BLOOD SPECIMENOrdering Facility: [facility] Address: [address] [place], [place] [address] Performed By: #### L [id number] ####[facility] LABIA [id number] [address] [place] Protein.monoclonal Elph [Mass/Vol] 0.00 g/dL Normal <=0.00 [facility] Comment on above: Order Comment: Speci men Type: BLOOD SPECIMENOrdering Facility: [facility] Address: [address] [place] [address] Performed By: #### L [id number] ####[facility] LABCLIA [id number] [place] [address] [place] SPE STAFF REVIEW Reviewed by Daphne vyas M.D. [facility] Comment on above: Order Comment: Speci men Type: BLOOD SPECIMENOrdering Facility: [facility] Address: [address] [place] [address] Performed By: #### L [id number] ####[facility] LABCLIA [id number] [place] [address] [place] Phosphate SerPl-mCncon 02-11 Phosphate [Mass/Vol] 3.4 mg/dL Normal 2.7-4.8 [facility] Comment on above: Order Comment: Speci men Type: BLOOD SPECIMENOrdering Facility: [facility] Address: [address] [place] [address] Performed By: #### 2 4323-8, 2532-0, 2777-1, 3084-1 ####[facility] LABCLIA [id number] [place] [address] Prot SerPl-mCncon 02-11-2023 Protein [Mass/Vol] 6.2 g/dL Low 6.3-8.0 [facility] Comment on above: Order Comment: Speci men Type: BLOOD SPECIMENOrdering Facility: [facility] Address: [address] [place] [address] Performed By: #### 2 885-2, 2132-9, 2284-8 ####[facility] LABCLIA [id number] [place] [address] [place] Urate SerPl-mCncon Urate [Mass/Vol] 4.3 mg/dL Normal 2.5-6.6 [facility] Comment on above: Order Comment: Speci men Type: BLOOD SPECIMENOrdering Facility: [facility] Address: [address] [place] [address] Performed By: #### 2 4323-8, 2532-0, 2777-1, 3084-1 ####[facility] LABCLIA [id number] [place] [address] Vit B12 [facility] 023 Cobalamin (Vitamin B12) [Mass/Vol] 598 pg/mL Normal 232-1245 [facility] Comment on above: Order Comment: Speci men Type: BLOOD SPECIMENOrdering Facility: [facility] Address: [address] [place] [address] Performed By: #### 2 885-2, 2132-9, 2284-8 ####[facility] [id number] [address] [place] CNPNon 02-04-2023 CNPN Normal [facility] CNPNon 01-24-2023 CNPN Normal [facility] 25([place])D3 [facility] 2022 25-hydroxyvitamin D3 [Mass/Vol] 25.1 ng/mL Low 31.0-80.0 [facility] Comment on above: Order Comment: Speci men Type: BLOOD SPECIMENOrdering Facility: [facility] Address: [address] [place] [address] Result Comment: Clas sification of 25 [place] Vitamin D status:Deficiency/Insufficiency: < or = 30 ng/ml.Sufficiency/Optimal Levels: 31-80 ng/mLToxicity: > 100 ng/mL.Test performed by chemiluminescent immunoassay. Performed By: #### 1 989-3 ####[facility] [id number] [address] [place] CBC panel Auto (Bld)on 01-22 Erythrocyte distribution width (RBC) [Ratio] 14.8 % Normal 11.5-15.0 [facility] Comment on above: Order Comment: Speci men Type: BLOOD SPECIMENOrdering Facility: [facility] Address: [address] [place] [address] Performed By: #### 5 8410-2 ####[facility] LABCLIA [id number] [place] [address] Hematocrit (Bld) [Volume fraction] 40.9 % Normal 36.0-46.0 [facility] Comment on above: Order Comment: Speci men Type: BLOOD SPECIMENOrdering Facility: [facility] Address: [address] [place] [address] Performed By: #### 5 8410-2 ####[facility] LABCLIA [id number] [place] [address] Hemoglobin (Bld) [Mass/Vol] 13.4 g/dL Normal 11.5-15.5 [facility] Comment on above: Order Comment: Speci men Type: BLOOD SPECIMENOrdering Facility: [facility] Address: [address] [place] [address] Performed By: #### 5 8410-2 ####[facility] LABIA [id number] [place] [address] MCH (RBC) [Entitic mass] 30.1 pg Normal 26.0-34.0 [facility] Comment on above: Order Comment: Speci men Type: BLOOD SPECIMENOrdering Facility: [facility] Address: [address] [place] [address] Performed By: #### 5 8410-2 ####[facility] LABCLIA [id number] [place] [address] MCHC (RBC) [Mass/Vol] 32.8 g/dL Normal 30.5-36.0 [facility] Comment on above: Order Comment: Speci men Type: BLOOD SPECIMENOrdering Facility: [facility] Address: [address] [place] [address] Performed By: #### 5 8410-2 ####[facility] LABIA [id number] [place] [address] MCV (RBC) [Entitic vol] 91.9 fL Normal 80.0-100.0 [facility] Comment on above: Order Comment: Speci men Type: BLOOD SPECIMENOrdering Facility: [facility] Address: [address] [address] Performed By: #### 5 8410-2 ####[facility] LABCLIA [id number] [place] [address] Nucleated RBC (Bld) [#/Vol] 10*3/uL Normal <0.01 [facility] Comment on above: Order Comment: Speci men Type: BLOOD SPECIMENOrdering Facility: [facility] Address: [address] [address] Performed By: #### 5 8410-2 ####[facility] LABCLIA [id number] [place] [address] Platelet mean volume (Bld) [Entitic vol] 9.6 fL Normal 9.0-12.7 [facility] Comment on above: Order Comment: Speci men Type: BLOOD SPECIMENOrdering Facility: [facility] Address: [address] [address] Performed By: #### 5 8410-2 ####[facility] LABCLIA [id number] [place] [address] Platelets (Bld) [#/Vol] 285 10*3/uL Normal 150-400 [facility] Comment on above: Order Comment: Speci men Type: BLOOD SPECIMENOrdering Facility: [facility] Address: [address] Performed By: #### 5 8410-2 ####GIGIILDAPHNE [facility] LABCLIA [id number] [place] [address] RBC (Bld) [#/Vol] 4.45 10*6/uL Normal 3.90-5.20 [facility] Comment on above: Order Comment: Speci men Type: BLOOD SPECIMENOrdering Facility: [facility] Address: [address] [address] Performed By: #### 5 8410-2 ####[facility] LABCLIA [id number] [place] [address] WBC (Bld) [#/Vol] 13.80 10*3/uL High 3.70-11.00 [facility] Comment on above: Order Comment: Speci men Type: BLOOD SPECIMENOrdering Facility: [facility] Address: [address] [place] [address] Performed By: #### 5 8410-2 ####[facility] LABCLIA [id number] [place] [address] CNNURSEon 01-22-2023 CNNURSE Normal [facility] CRP SerPl-mCncon 01-22-2023 CRP [Mass/Vol] mg/L Normal <0.9 [facility] Comment on above: Order Comment: Speci men Type: BLOOD SPECIMENOrdering Facility: [facility] Address: [address] [place] [address] Performed By: #### 1 988-5 ####[facility] LABCLIA [id number] [facility] [id number] [place] [address] Comprehensive metabolic 2000 panelon 01-22-2023 Albumin [Mass/Vol] 4.1 g/dL Normal 3.9-4.9 [facility] Comment on above: Order Comment: Speci men Type: BLOOD SPECIMENOrdering Facility: [facility] Address: [address] [place] [address] Performed By: #### 2 4323-8 ####[facility] LABCLIA [id number] [place] [address] ALP [Catalytic activity/Vol] 62 U/L Normal 34-123 [facility] Comment on above: Order Comment: Speci men Type: BLOOD SPECIMENOrdering Facility: [facility] Address: [address] [place] [address] Performed By: #### 2 4323-8 ####[facility] LABCLIA [id number] [place] [address] ALT [Catalytic activity/Vol] 27 U/L Normal 7-38 [facility] Comment on above: Order Comment: Speci men Type: BLOOD SPECIMENOrdering Facility: [facility] Address: [address] [address] Performed By: #### 2 4323-8 ####[facility] LABCLIA [id number] [place] [address] Anion gap [Moles/Vol] 10 mmol/L Normal 9-18 [facility] Comment on above: Order Comment: Speci men Type: BLOOD SPECIMENOrdering Facility: [facility] Address: [address] [address] Performed By: #### 2 4323-8 ####[facility] SYSTEMDAPHNE [facility] LABCLIA [id number] [place] [address] AST [Catalytic activity/Vol] 12 U/L Low 13-35 [facility] Comment on above: Order Comment: Speci men Type: BLOOD SPECIMENOrdering Facility: [facility] Address: [address] [address] Performed By: #### 2 4323-8 ####[facility] LABCLIA [id number] [place] [address] Bilirubin [Mass/Vol] 0.2 mg/dL Normal 0.2-1.3 [facility] Comment on above: Order Comment: Speci men Type: BLOOD SPECIMENOrdering Facility: [facility] Address: [address] [address] Performed By: #### 2 4323-8 ####[facility] LABCLIA [id number] [place] [address] Calcium [Mass/Vol] 9.4 mg/dL Normal 8.5-10.2 [facility] Comment on above: Order Comment: Speci men Type: BLOOD SPECIMENOrdering Facility: [facility] Address: [address] [place] [address] Performed By: #### 2 4323-8 ####[facility] LABCLIA [id number] [place] [address] Chloride [Moles/Vol] 107 mmol/L High 97-105 [facility] Comment on above: Order Comment: Speci men Type: BLOOD SPECIMENOrdering Facility: [facility] Address: [address] [place] [address] Performed By: #### 2 4323-8 ####[facility] LABCLIA [id number] [place] [address] CO2 [Moles/Vol] 24 mmol/L Normal 22-30 [facility] Comment on above: Order Comment: Speci men Type: BLOOD SPECIMENOrdering Facility: [facility] Address: [address] [place] [address] Performed By: #### 2 4323-8 ####[facility] LABCLIA [id number] [place] [address] Creatinine [Mass/Vol] 0.71 mg/dL Normal 0.58-0.96 [facility] Comment on above: Order Comment: Speci men Type: BLOOD SPECIMENOrdering Facility: [facility] Address: [address] [place] [address] Performed By: #### 2 4323-8 ####[facility] LABCLIA [id number] [place] [address] Creatinine and Glomerular filtration rate.predicted panel (S/P/Bld) 109 mL/min/1.73m??? Normal >=60 [facility] Comment on above: Order Comment: Speci men Type: BLOOD SPECIMENOrdering Facility: [facility] Address: [address] [place] [address] Result Comment: Erin mated Glomerular Filtration Rate [...] actual GFR. Performed By: #### 2 4323-8 ####[facility] LABIA [id number] [place] [address] Glucose [Mass/Vol] 60 mg/dL Low 74-99 [facility] Comment on above: Order Comment: Semaj cortés Type: BLOOD SPECIMENOrdering Facility: [facility] Address: [address] [place] [address] Result Comment: The [place] Diabetes Association (ADA) provides guidance for cutoff [...] Standards of Medical Care in Diabetes 2016, [place] [employer]. Diabetes Care. 2016.39(Suppl 1). Performed By: #### 2 4323-8 ####[facility] LABIA [id number] [place] [address] Potassium [Moles/Vol] 4.0 mmol/L Normal 3.7-5.1 [facility] Comment on above: Order Comment: Semaj cortés Type: BLOOD SPECIMENOrdering Facility: [facility] Address: [address] [id number] Performed By: #### 2 4323-8 ####[facility] LABIA [id number] [place] [address] Protein [Mass/Vol] 6.7 g/dL Normal 6.3-8.0 [facility] Comment on above: Order Comment: Semaj cortés Type: BLOOD SPECIMENOrdering Facility: [facility] Address: [address] [address] Performed By: #### 2 4323-8 ####[facility] LABCLIA [id number] [place] [address] Sodium [Moles/Vol] 141 mmol/L Normal 136-144 [facility] Comment on above: Order Comment: Speci men Type: BLOOD SPECIMENOrdering Facility: [facility] Address: [address] [place] [address] Performed By: #### 2 4323-8 ####[facility] LABCLIA [id number] [place] [address] Urea nitrogen [Mass/Vol] 13 mg/dL Normal 7-21 [facility] Comment on above: Order Comment: Speci men Type: BLOOD SPECIMENOrdering Facility: [facility] Address: [address] [place] [address] Performed By: #### 2 4323-8 ####[facility] LABCLIA [id number] [place] [address] ESR Westergren method (Bld) [Velocity]on 01-22-2023 ESR (Bld) [Velocity] 20 mm/h Normal 0-20 [facility] Comment on above: Order Comment: Speci men Type: BLOOD SPECIMENOrdering Facility: [facility] Address: [address] [place] [address] Performed By: #### 4 537-7 ####[facility] LABCLIA [id number] [facility] [place]82[place] [address] [place] CNNURSEon 12-29-2022 CNNURSE Normal [facility] CNPNon 12-18-2022 CNPN Normal [facility] CNPNon 12-16-2022 CNPN Normal [facility] CBC W Auto Differential pane l (Bld)on 12-08-2022 Basophils (Bld) [#/Vol] 0.06 10*3/uL Normal <0.11 [facility] Comment on above: Order Comment: Speci men Type: BLOOD SPECIMENOrdering Facility: [facility] Address: [address] [address] Performed By: #### 5 7021-8 ####[facility] LABCLIA [id number] [place] [address] Basophils/100 WBC (Bld) 0.4 % Normal [facility] Comment on above: Order Comment: Speci men Type: BLOOD SPECIMENOrdering Facility: [facility] Address: [address] [place] [address] Performed By: #### 5 7021-8 ####[facility] LABCLIA [id number] [place] [address] Differential cell count method Nom (Bld) Auto Normal [facility] Comment on above: Order Comment: Speci men Type: BLOOD SPECIMENOrdering Facility: [facility] Address: [address] [place] [address] Performed By: #### 5 7021-8 ####[facility] LABCLIA [id number] [place] [address] Eosinophils (Bld) [#/Vol] 0.11 10*3/uL Normal <0.46 [facility] Comment on above: Order Comment: Speci men Type: BLOOD SPECIMENOrdering Facility: [facility] Address: [address] [place] [address] Performed By: #### 5 7021-8 ####[facility] LABCLIA [id number] [place] [address] Eosinophils/100 WBC (Bld) 0.8 % Normal [facility] Comment on above: Order Comment: Speci men Type: BLOOD SPECIMENOrdering Facility: [facility] Address: [address] [place] [address] Performed By: #### 5 7021-8 ####[facility] LABCLIA [id number] [place] [address] Erythrocyte distribution width (RBC) [Ratio] 14.6 % Normal 11.5-15.0 [facility] Comment on above: Order Comment: Speci men Type: BLOOD SPECIMENOrdering Facility: [facility] Address: [address] [address] Performed By: #### 5 7021-8 ####[facility] SYSTEMDPAHNE [facility] LABCLIA [id number] [place] [address] Hematocrit (Bld) [Volume fraction] 42.0 % Normal 36.0-46.0 [facility] Comment on above: Order Comment: Speci men Type: BLOOD SPECIMENOrdering Facility: [facility] Address: [address] [place] [address] Performed By: #### 5 7021-8 ####[facility] LABCLIA [id number] [place] [address] Hemoglobin (Bld) [Mass/Vol] 13.3 g/dL Normal 11.5-15.5 [facility] Comment on above: Order Comment: Speci men Type: BLOOD SPECIMENOrdering Facility: [facility] Address: [address] [address] Performed By: #### 5 7021-8 ####[facility] LABCLIA [id number] [place] [address] Immature granulocytes (Bld) [#/Vol] 0.11 10*3/uL High <0.10 [facility] Comment on above: Order Comment: Speci men Type: BLOOD SPECIMENOrdering Facility: [facility] Address: [address] [address] Performed By: #### 5 7021-8 ####[facility] LABIA [id number] [place] [address] Immature granulocytes/100 WBC (Bld) 0.8 % Normal [facility] Comment on above: Order Comment: Speci men Type: BLOOD SPECIMENOrdering Facility: [facility] Address: [address] [address] Performed By: #### 5 7021-8 ####[facility] LABCLIA [id number] [place] [address] Lymphocytes (Bld) [#/Vol] 3.75 10*3/uL Normal 1.00-4.00 [facility] Comment on above: Order Comment: Speci men Type: BLOOD SPECIMENOrdering Facility: [facility] Address: [address] [place] [address] Performed By: #### 5 7021-8 ####[facility] LABCLIA [id number] [place] [address] Lymphocytes/100 WBC (Bld) 27.4 % Normal [facility] Comment on above: Order Comment: Speci men Type: BLOOD SPECIMENOrdering Facility: [facility] Address: [address] [place] [address] Performed By: #### 5 7021-8 ####[facility] LABCLIA [id number] [place] [address] MCH (RBC) [Entitic mass] 29.8 pg Normal 26.0-34.0 [facility] Comment on above: Order Comment: Speci men Type: BLOOD SPECIMENOrdering Facility: [facility] Address: [address] [place] [address] Performed By: #### 5 7021-8 ####[facility] LABCLIA [id number] [place] [address] MCHC (RBC) [Mass/Vol] 31.7 g/dL Normal 30.5-36.0 [facility] Comment on above: Order Comment: Speci men Type: BLOOD SPECIMENOrdering Facility: [facility] Address: [address] [place] [address] Performed By: #### 5 7021-8 ####[facility] LABIA [id number] [place] [address] MCV (RBC) [Entitic vol] 94.0 fL Normal 80.0-100.0 [facility] Comment on above: Order Comment: Speci men Type: BLOOD SPECIMENOrdering Facility: [facility] Address: [address] [address] Performed By: #### 5 7021-8 ####[facility] LABCLIA [id number] [place] [address] Monocytes (Bld) [#/Vol] 1.07 10*3/uL High <0.87 [facility] Comment on above: Order Comment: Speci men Type: BLOOD SPECIMENOrdering Facility: [facility] Address: [address] [address] Performed By: #### 5 7021-8 ####[facility] LABCLIA [id number] [place] [address] Monocytes/100 WBC (Bld) 7.8 % Normal [facility] Comment on above: Order Comment: Speci men Type: BLOOD SPECIMENOrdering Facility: [facility] Address: [address] [place] [address] Performed By: #### 5 7021-8 ####[facility] LABCLIA [id number] [place] [address] Neutrophils (Bld) [#/Vol] 8.57 10*3/uL High 1.45-7.50 [facility] Comment on above: Order Comment: Speci men Type: BLOOD SPECIMENOrdering Facility: [facility] Address: [address] [place] [address] Performed By: #### 5 7021-8 ####[facility] LABCLIA [id number] [place] [address] Neutrophils/100 WBC (Bld) 62.8 % Normal [facility] Comment on above: Order Comment: Speci men Type: BLOOD SPECIMENOrdering Facility: [facility] Address: [address] [place] [address] Performed By: #### 5 7021-8 ####[facility] LABCLIA [id number] [place] [address] Nucleated RBC (Bld) [#/Vol] 10*3/uL Normal <0.01 [facility] Comment on above: Order Comment: Speci men Type: BLOOD SPECIMENOrdering Facility: [facility] Address: [address] [place] [address] Performed By: #### 5 7021-8 ####[facility] LABCLIA [id number] [place] [address] Nucleated RBC/100 WBC (Bld) [Ratio] 0.0 /100 WBC Normal [facility] Comment on above: Order Comment: Speci men Type: BLOOD SPECIMENOrdering Facility: [facility] Address: [address] [place] [address] Performed By: #### 5 7021-8 ####[facility] LABIA [id number] [place] [address] Platelet mean volume (Bld) [Entitic vol] 9.6 fL Normal 9.0-12.7 [facility] Comment on above: Order Comment: Speci men Type: BLOOD SPECIMENOrdering Facility: [facility] Address: [address] [place] [address] Performed By: #### 5 7021-8 ####[facility] LABCLIA [id number] [place] [address] Platelets (Bld) [#/Vol] 301 10*3/uL Normal 150-400 [facility] Comment on above: Order Comment: Speci men Type: BLOOD SPECIMENOrdering Facility: [facility] Address: [address] [place] [address] Performed By: #### 5 7021-8 ####[facility] LABIA [id number] [place] [address] RBC (Bld) [#/Vol] 4.47 10*6/uL Normal 3.90-5.20 [facility] Comment on above: Order Comment: Speci men Type: BLOOD SPECIMENOrdering Facility: [facility] Address: [address] [address] Performed By: #### 5 7021-8 ####[facility] LABCLIA [id number] [place] [address] WBC (Bld) [#/Vol] 13.67 10*3/uL High 3.70-11.00 [facility] Comment on above: Order Comment: Speci men Type: BLOOD SPECIMENOrdering Facility: [facility] Address: [address] [place] [address] Performed By: #### 5 7021-8 ####[facility]CL[facility] [id number] [place] [address] CNPNon 12-08-2022 CNPN Normal [facility] metabolic 2000 panelon 12-08-2022 Albumin [Mass/Vol] 4.3 g/dL Normal 3.9-4.9 [facility] Comment on above: Order Comment: Speci men Type: BLOOD SPECIMENOrdering Facility: [facility] Address: [address] [address] Performed By: #### 2 4323-8 ####GIGIILDAPHNE [facility] LABIA [id number] [place] [address] ALP [Catalytic activity/Vol] 63 U/L Normal 34-123 [facility] Comment on above: Order Comment: Speci men Type: BLOOD SPECIMENOrdering Facility: [facility] Address: [address] [place] [address] Performed By: #### 2 4323-8 ####[facility] LABCLIA [id number] [place] [address] ALT [Catalytic activity/Vol] 19 U/L Normal 7-38 [facility] Comment on above: Order Comment: Speci men Type: BLOOD SPECIMENOrdering Facility: [facility] Address: [address] [place] [address] Performed By: #### 2 4323-8 ####[facility] SYSTEMDAPHNE [facility] LABCLIA [id number] [place] [address] Anion gap [Moles/Vol] 5 mmol/L Low 9-18 [facility] Comment on above: Order Comment: Speci men Type: BLOOD SPECIMENOrdering Facility: [facility] Address: [address] [place] [address] Performed By: #### 2 4323-8 ####[facility] LABCLIA [id number] [place] [address] AST [Catalytic activity/Vol] 10 U/L Low 13-35 [facility] Comment on above: Order Comment: Speci men Type: BLOOD SPECIMENOrdering Facility: [facility] Address: [address] [place] [address] Performed By: #### 2 4323-8 ####[facility] LABCLIA [id number] [place] [address] Bilirubin [Mass/Vol] 0.2 mg/dL Normal 0.2-1.3 [facility] Comment on above: Order Comment: Speci men Type: BLOOD SPECIMENOrdering Facility: [facility] Address: [address] [place] [address] Performed By: #### 2 4323-8 ####[facility] LABCLIA [id number] [place] [address] Calcium [Mass/Vol] 9.9 mg/dL Normal 8.5-10.2 [facility] Comment on above: Order Comment: Speci men Type: BLOOD SPECIMENOrdering Facility: [facility] Address: [address] [place] [address] Performed By: #### 2 4323-8 ####[facility] LABCLIA [id number] [place] [address] Chloride [Moles/Vol] 106 mmol/L High 97-105 [facility] Comment on above: Order Comment: Speci men Type: BLOOD SPECIMENOrdering Facility: [facility] Address: [address] [address] Performed By: #### 2 4323-8 ####[facility] LABCLIA [id number] [place] [address] CO2 [Moles/Vol] 26 mmol/L Normal 22-30 [facility] Comment on above: Order Comment: Speci men Type: BLOOD SPECIMENOrdering Facility: [facility] Address: [address] [place] [address] Performed By: #### 2 4323-8 ####[facility] LABCLIA [id number] [place] [address] Creatinine [Mass/Vol] 0.80 mg/dL Normal 0.58-0.96 [facility] Comment on above: Order Comment: Speci men Type: BLOOD SPECIMENOrdering Facility: [facility] Address: [address] [place] [address] Performed By: #### 2 4323-8 ####[facility] LABCLIA [id number] [place] [address] ESTIMATED GLOMERULAR FILTRATION RATE 94 mL/min/1.73m??? Normal >=60 [facility] Comment on above: Order Comment: Speci men Type: BLOOD SPECIMENOrdering Facility: [facility] Address: [address] [place] [address] Result Comment: Erin mated Glomerular Filtration Rate [...] actual GFR. Performed By: #### 2 4323-8 ####[facility] LABCLIA [id number] [place] [address] Glucose [Mass/Vol] 91 mg/dL Normal 74-99 [facility] Comment on above: Order Comment: Speci men Type: BLOOD SPECIMENOrdering Facility: [facility] Address: [address] [id number] Result Comment: The [place] Diabetes Association (ADA) provides guidance for cutoff [...] Standards of Medical Care in Diabetes 2016, [place] [employer]. Diabetes Care. 2016.39(Suppl 1). Performed By: #### 2 4323-8 ####[facility] LABCLIA [id number] [place] [address] Potassium [Moles/Vol] 3.9 mmol/L Normal 3.7-5.1 [facility] Comment on above: Order Comment: Speci [facility] Type: BLOOD SPECIMENOrdering Facility: [facility] Address: [address] Performed By: #### 2 4323-8 ####[facility] LABCLIA [id number] [place] [address] Protein [Mass/Vol] 7.1 g/dL Normal 6.3-8.0 [facility] Comment on above: Order Comment: Speci men Type: BLOOD SPECIMENOrdering Facility: [facility] Address: [address] [phone] Performed By: #### 2 4323-8 ####[facility] LABCLIA [id number] [place] [address] Sodium [Moles/Vol] 137 mmol/L Normal 136-144 [facility] Comment on above: Order Comment: Speci men Type: BLOOD SPECIMENOrdering Facility: [facility] Address: [address] [address] Performed By: #### 2 4323-8 ####[facility] LABCLIA [id number] [place] [address] Urea nitrogen [Mass/Vol] 20 mg/dL Normal 7-21 [facility] Comment on above: Order Comment: Speci men Type: BLOOD SPECIMENOrdering Facility: [facility] Address: [address] [place] [address] Performed By: #### 2 4323-8 ####[facility] LABCLIA [id number] [place] [address] Ferritin SerPl-ncon 2022 Ferritin [Mass/Vol] 26.6 ng/mL Normal 14.7-205.1 [facility] Comment on above: Order Comment: Speci men Type: BLOOD SPECIMENOrdering Facility: [facility] Address: [address] [place] [address] Performed By: #### 5 0190-8, 2131-9, 6-4, 2283-8 ####[facility] LABIA [id number] [place] [address] [place] Folate SerPl-mCncon 12-09-19 Folate [Mass/Vol] 2.6 ng/mL Low >4.7 [facility] Comment on above: Order Comment: Speci men Type: BLOOD SPECIMENOrdering Facility: [facility] Address: [address] [place] [address] Performed By: #### 5 0190-8, 2131-9, 6-4, 2283-8 ####[facility] LABIA [id number] [place] [address] [place] Iron and Iron binding capaci ty panelon 12-08-2022 Iron [Mass/Vol] 48 ug/dL Normal 41-186 [facility] Comment on above: Order Comment: Speci men Type: BLOOD SPECIMENOrdering Facility: [facility] Address: [address] [id number] Performed By: #### 5 0190-8, 9, 2275-08, 2283-12 ####[facility] LABCLIA [id number] [place] [address] [place] Iron binding capacity [Mass/Vol] 382 ug/dL Normal 232-386 [facility] Comment on above: Order Comment: Speci men Type: BLOOD SPECIMENOrdering Facility: [facility] Address: [address] [address] Performed By: #### 5 0190-8, 9, 2275-08, 2283-12 ####[facility] LABIA [id number] [place] [address] [place] Iron/TIBC [Molar ratio] 12.6 % Low 15.0-57.0 [facility] Comment on above: Order Comment: Speci men Type: BLOOD SPECIMENOrdering Facility: [facility] Address: [address] [place] [address] Performed By: #### 5 0190-8, 9, 2275-08, 2283-12 ####[facility] LABIA [id number] [place] [address] [place] Vit B12 [facility] 07-18-2 023 Cobalamin (Vitamin B12) [Mass/Vol] 336 pg/mL Normal 232-1245 [facility] Comment on above: Order Comment: Speci men Type: BLOOD SPECIMENOrdering Facility: [facility] Address: [address] [id number] Performed By: #### 5 0190-8, 9, 2275-08, 2283-12 ####[facility] LABIA [id number] [place] [address] [place] CNNURSEon 11-19-2022 CNNURSE Normal [facility] CNPNon 06-10-2023 CNPN Normal [facility] CNNURSEon 10-22-2022 CNNURSE Normal [facility] CNOVSPon 10-22-2022 CNOVSP Normal [facility] TPMT PHENOTYPE/ENZYME ACTIVI TYon 10-22-2022 TPMT ACTIVITY 33.5 U/mL Normal 24.0-44.0 [facility] Comment on above: Order Comment: Speci men Type: BLOOD SPECIMENOrdering Facility: [facility] Address: [address] [place] [id number] Result Comment: INTE RPRETIVE INFORMATION: Thiopurine Methyltransferase, [...] was developed and its performance characteristicsdetermined by [facility]. It has not been cleared orapproved by the [place] Food and Drug Administration. This test wasperformed in a CLIA certified laboratory and is intended forclinical purposes.Performed By: [facility] [place], [place] [address] Director: Ole Love MD, PhD Performed By: #### T PMT ####[facility] [id number] [place] [address] CNPNon 10-16-2022 CNPN Normal [facility] 25(OH)D3 [facility] 2022 25-hydroxyvitamin D3 [Mass/Vol] 28.3 ng/mL Low 31.0-80.0 [facility] Comment on above: Order Comment: Speci men Type: BLOOD SPECIMENOrdering Facility: [facility] Address: [address] [place] [address] Result Comment: Clas sification of 25 [place] Vitamin D status:Deficiency/Insufficiency: < or = 30 ng/ml.Sufficiency/Optimal Levels: 31-80 ng/mLToxicity: > 100 ng/mL.Test performed by chemiluminescent immunoassay. Performed By: #### 1 989-3 ####[facility] LABCLIA [id number] [address] [place] CBC W Auto Differential pane l (Bld)on 10-15-2022 Basophils (Bld) [#/Vol] 0.07 10*3/uL Normal <0.11 [facility] Comment on above: Order Comment: Speci men Type: BLOOD SPECIMENOrdering Facility: [facility] Address: [address] [place] [address] Performed By: #### 5 7021-8 ####[facility] LABCLIA [id number] [place] [address] Basophils/100 WBC (Bld) 0.6 % Normal [facility] Comment on above: Order Comment: Speci men Type: BLOOD SPECIMENOrdering Facility: [facility] Address: [address] [place] [address] Performed By: #### 5 7021-8 ####[facility] LABCLIA [id number] [place] [address] Differential cell count method Nom (Bld) Auto Normal [facility] Comment on above: Order Comment: Speci men Type: BLOOD SPECIMENOrdering Facility: [facility] Address: [address] [place] [address] Performed By: #### 5 7021-8 ####[facility] LABCLIA [id number] [place] [address] Eosinophils (Bld) [#/Vol] 0.16 10*3/uL Normal <0.46 [facility] Comment on above: Order Comment: Speci men Type: BLOOD SPECIMENOrdering Facility: [facility] Address: [address] [place] [address] Performed By: #### 5 7021-8 ####[facility] LABCLIA [id number] [place] [address] Eosinophils/100 WBC (Bld) 1.3 % Normal [facility] Comment on above: Order Comment: Speci men Type: BLOOD SPECIMENOrdering Facility: [facility] Address: [address] [place] [address] Performed By: #### 5 7021-8 ####[facility] LABCLIA [id number] [place] [address] Erythrocyte distribution width (RBC) [Ratio] 14.6 % Normal 11.5-15.0 [facility] Comment on above: Order Comment: Speci men Type: BLOOD SPECIMENOrdering Facility: [facility] Address: [address] [place] [address] Performed By: #### 5 7021-8 ####[facility] LABCLIA [id number] [place] [address] Hematocrit (Bld) [Volume fraction] 40.8 % Normal 36.0-46.0 [facility] Comment on above: Order Comment: Speci men Type: BLOOD SPECIMENOrdering Facility: [facility] Address: [address] [place] [address] Performed By: #### 5 7021-8 ####[facility] LABCLIA [id number] [place] [address] Hemoglobin (Bld) [Mass/Vol] 13.1 g/dL Normal 11.5-15.5 [facility] Comment on above: Order Comment: Speci men Type: BLOOD SPECIMENOrdering Facility: [facility] Address: [address] [place] [address] Performed By: #### 5 7021-8 ####[facility] LABCLIA [id number] [place] [address] Immature granulocytes (Bld) [#/Vol] 0.07 10*3/uL Normal <0.10 [facility] Comment on above: Order Comment: Speci men Type: BLOOD SPECIMENOrdering Facility: [facility] Address: [address] [place] [address] Performed By: #### 5 7021-8 ####[facility] LABCLIA [id number] [place] [address] Immature granulocytes/100 WBC (Bld) 0.6 % Normal [facility] Comment on above: Order Comment: Speci men Type: BLOOD SPECIMENOrdering Facility: [facility] Address: [address] [place] [address] Performed By: #### 5 7021-8 ####[facility] LABCLIA [id number] [place] [address] Lymphocytes (Bld) [#/Vol] 3.62 10*3/uL Normal 1.00-4.00 [facility] Comment on above: Order Comment: Speci men Type: BLOOD SPECIMENOrdering Facility: [facility] Address: [address] [place] [address] Performed By: #### 5 7021-8 ####[facility] LABCLIA [id number] [place] [address] Lymphocytes/100 WBC (Bld) 30.3 % Normal [facility] Comment on above: Order Comment: Speci men Type: BLOOD SPECIMENOrdering Facility: [facility] Address: [address] [place] [address] Performed By: #### 5 7021-8 ####[facility] LABCLIA [id number] [place] [address] MCH (RBC) [Entitic mass] 29.2 pg Normal 26.0-34.0 [facility] Comment on above: Order Comment: Speci men Type: BLOOD SPECIMENOrdering Facility: [facility] Address: [address] [place] [address] Performed By: #### 5 7021-8 ####[facility] LABCLIA [id number] [place] [address] MCHC (RBC) [Mass/Vol] 32.1 g/dL Normal 30.5-36.0 [facility] Comment on above: Order Comment: Speci men Type: BLOOD SPECIMENOrdering Facility: [facility] Address: [address] [place] [address] Performed By: #### 5 7021-8 ####[facility] LABCLIA [id number] [place] [address] MCV (RBC) [Entitic vol] 90.9 fL Normal 80.0-100.0 [facility] Comment on above: Order Comment: Speci men Type: BLOOD SPECIMENOrdering Facility: [facility] Address: [address] [place] [address] Performed By: #### 5 7021-8 ####[facility] LABCLIA [id number] [place] [address] Monocytes (Bld) [#/Vol] 0.66 10*3/uL Normal <0.87 [facility] Comment on above: Order Comment: Speci men Type: BLOOD SPECIMENOrdering Facility: [facility] Address: [address] [place] [address] Performed By: #### 5 7021-8 ####[facility] LABCLIA [id number] [place] [address] Monocytes/100 WBC (Bld) 5.5 % Normal [facility] Comment on above: Order Comment: Speci men Type: BLOOD SPECIMENOrdering Facility: [facility] Address: [address] [place] [address] Performed By: #### 5 7021-8 ####[facility] LABCLIA [id number] [place] [address] Neutrophils (Bld) [#/Vol] 7.35 10*3/uL Normal 1.45-7.50 [facility] Comment on above: Order Comment: Speci men Type: BLOOD SPECIMENOrdering Facility: [facility] Address: [address] [place] [address] Performed By: #### 5 7021-8 ####[facility] LABCLIA [id number] [place] [address] Neutrophils/100 WBC (Bld) 61.7 % Normal [facility] Comment on above: Order Comment: Speci men Type: BLOOD SPECIMENOrdering Facility: [facility] Address: [address] [place] [address] Performed By: #### 5 7021-8 ####[facility] LABCLIA [id number] [place] [address] Nucleated RBC (Bld) [#/Vol] 10*3/uL Normal <0.01 [facility] Comment on above: Order Comment: Speci men Type: BLOOD SPECIMENOrdering Facility: [facility] Address: [address] [place] [address] Performed By: #### 5 7021-8 ####[facility] LABCLIA [id number] [place] [address] Nucleated RBC/100 WBC (Bld) [Ratio] 0.0 /100 WBC Normal [facility] Comment on above: Order Comment: Speci men Type: BLOOD SPECIMENOrdering Facility: [facility] Address: [address] [place] [address] Performed By: #### 5 7021-8 ####[facility] LABCLIA [id number] [place] [address] Platelet mean volume (Bld) [Entitic vol] 9.7 fL Normal 9.0-12.7 [facility] Comment on above: Order Comment: Speci men Type: BLOOD SPECIMENOrdering Facility: [facility] Address: [address] [address] Performed By: #### 5 7021-8 ####[facility] LABCLIA [id number] [place] [address] Platelets (Bld) [#/Vol] 295 10*3/uL Normal 150-400 [facility] Comment on above: Order Comment: Speci men Type: BLOOD SPECIMENOrdering Facility: [facility] Address: [address] [place] [address] Performed By: #### 5 7021-8 ####[facility] LABCLIA [id number] [place] [address] RBC (Bld) [#/Vol] 4.49 10*6/uL Normal 3.90-5.20 [facility] Comment on above: Order Comment: Speci men Type: BLOOD SPECIMENOrdering Facility: [facility] Address: [address] [place] [address] Performed By: #### 5 7021-8 ####[facility] LABIA [id number] [place] [address] WBC (Bld) [#/Vol] 11.93 10*3/uL High 3.70-11.00 [facility] Comment on above: Order Comment: Speci men Type: BLOOD SPECIMENOrdering Facility: [facility] Address: [address] [place] [address] Performed By: #### 5 7021-8 ####[facility] LABIA [id number] [place] [address] CRP [facility] 10-15-2022 CRP [Mass/Vol] 0.3 mg/dL Normal <0.9 [facility] Comment on above: Order Comment: Speci men Type: BLOOD SPECIMENOrdering Facility: [facility] Address: [address] [place] [address] Performed By: #### 1 988-5, 2885-2, 2132-9 ####[facility] LABCLIA [id number] [facility] [place] [address] [place] Comprehensive metabolic 2000 panelon 10-15-2022 Albumin [Mass/Vol] 4.0 g/dL Normal 3.9-4.9 [facility] Comment on above: Order Comment: Speci men Type: BLOOD SPECIMENOrdering Facility: [facility] Address: [address] [address] Performed By: #### 2 532-0, 67039-0 ####[facility] LABCLIA [id number] [place] [address] ALP [Catalytic activity/Vol] 59 U/L Normal 34-123 [facility] Comment on above: Order Comment: Speci men Type: BLOOD SPECIMENOrdering Facility: [facility] Address: [address] [place] [address] Performed By: #### 2 532-0, ####[facility] LABIA [id number] [place] [address] ALT [Catalytic activity/Vol] 19 U/L Normal 7-38 [facility] Comment on above: Order Comment: Speci men Type: BLOOD SPECIMENOrdering Facility: [facility] Address: [address] [address] Performed By: #### 2 532-0, ####[facility] LABCLIA [id number] [place] [address] Anion gap [Moles/Vol] 12 mmol/L Normal 9-18 [facility] Comment on above: Order Comment: Speci men Type: BLOOD SPECIMENOrdering Facility: [facility] Address: [address] [place] [address] Performed By: #### 2 532-0, 07525-7 ####[facility] LABCLIA [id number] [place] [address] AST [Catalytic activity/Vol] 10 U/L Low 13-35 [facility] Comment on above: Order Comment: Speci men Type: BLOOD SPECIMENOrdering Facility: [facility] Address: [address] Performed By: #### 2 532-0, ####[facility] SYSTEMDAPHNE [facility] LABCLIA [id number] [place] [address] Bilirubin [Mass/Vol] 0.2 mg/dL Normal 0.2-1.3 [facility] Comment on above: Order Comment: Speci men Type: BLOOD SPECIMENOrdering Facility: [facility] Address: [address] [address] Performed By: #### 2 532-0, ####[facility]II[facility] LABIA [id number] [place] [address] Calcium [Mass/Vol] 9.6 mg/dL Normal 8.5-10.2 [facility] Comment on above: Order Comment: Speci men Type: BLOOD SPECIMENOrdering Facility: [facility] Address: [address] [address] Performed By: #### 2 532-0, ####[facility] SYSTEM[facility] LABIA [id number] [place] [address] Chloride [Moles/Vol] 104 mmol/L Normal 97-105 [facility] Comment on above: Order Comment: Speci men Type: BLOOD SPECIMENOrdering Facility: [facility] Address: [address] [address] Performed By: #### 2 532-0, ####[facility] LABIA [id number] [place] [address] CO2 [Moles/Vol] 21 mmol/L Low 22-30 [facility] Comment on above: Order Comment: Speci men Type: BLOOD SPECIMENOrdering Facility: [facility] Address: [address] Performed By: #### 2 532-0, 00514-3 ####[facility] LABCLIA [id number] [place] [address] Creatinine [Mass/Vol] 0.72 mg/dL Normal 0.58-0.96 [facility] Comment on above: Order Comment: Semaj cortés Type: BLOOD SPECIMENOrdering Facility: [facility] Address: [address] [address] Performed By: #### 2 532-0, 74881-7 ####[facility] LABCLIA [id number] [place] [address] ESTIMATED GLOMERULAR FILTRATION RATE 107 mL/min/1.73m??? Normal >=60 [facility] Comment on above: Order Comment: Semaj men Type: BLOOD SPECIMENOrdering Facility: [facility] Address: [address] [place] [address] Result Comment: Erin mated Glomerular Filtration Rate [...] actual GFR. Performed By: #### 2 532-0, 21374-3 ####[facility] LABIA [id number] [place] [address] Glucose [Mass/Vol] 157 mg/dL High 74-99 [facility] Comment on above: Order Comment: Speci moo Type: BLOOD SPECIMENOrdering Facility: [facility] Address: [address] [place] [address] Result Comment: The [place] Diabetes Association (ADA) provides guidance for cutoff [...] Standards of Medical Care in Diabetes 2016, [place] [employer] Association. Diabetes Care. 2016.39(Suppl 1). Performed By: #### 2 532-0, ####[facility] LABCLIA [id number] [place] [address] Potassium [Moles/Vol] 3.8 mmol/L Normal 3.7-5.1 [facility] Comment on above: Order Comment: Speci men Type: BLOOD SPECIMENOrdering Facility: [facility] Address: [address] [place] [address] Performed By: #### 2 532-0, ####[facility] LABIA [id number] [place] [address] Protein [Mass/Vol] 6.8 g/dL Normal 6.3-8.0 [facility] Comment on above: Order Comment: Speci men Type: BLOOD SPECIMENOrdering Facility: [facility] Address: [address] [place] [address] Performed By: #### 2 532-0, ####[facility] LABIA [id number] [place] [address] Sodium [Moles/Vol] 137 mmol/L Normal 136-144 [facility] Comment on above: Order Comment: Speci men Type: BLOOD SPECIMENOrdering Facility: [facility] Address: [address] [address] Performed By: #### 2 532-0, ####[facility] LABIA [id number] [place] [address] Urea nitrogen [Mass/Vol] 16 mg/dL Normal 7-21 [facility] Comment on above: Order Comment: Speci men Type: BLOOD SPECIMENOrdering Facility: [facility] Address: [address] [address] Performed By: #### 2 532-0, 90153-8 ####[facility] LABCLIA [id number] [place] [address] ESR Westergren method (Bld) [Velocity]on 10-15-2022 ESR (Bld) [Velocity] 27 mm/h High 0-20 [facility] Comment on above: Order Comment: Speci men Type: BLOOD SPECIMENOrdering Facility: [facility] Address: [address] [address] Performed By: #### 4 537-7 ####[facility] LABIA [id number] [address] IMMUNOFIXATION SCREEN, SERUM on 10-15-2022 MPA RESULT No M protein is identified. Normal No M protein is identified. [facility] Comment on above: Order Comment: Speci men Type: BLOOD SPECIMENOrdering Facility: [facility] Address: [address] [address] Performed By: #### I FES ####[facility] LABIA [id number] [address] STAFF REVIEW (MPA) Reviewed by Chapito holt MD, Ph.D ([id number]) Normal [facility] Comment on above: Order Comment: Speci men Type: BLOOD SPECIMENOrdering Facility: [facility] Address: [address] Performed By: #### I FESC ####[facility] LABIA [id number] [address] [place] IMMUNOGLOBULINS GAMon 2022 IgA [Mass/Vol] 184 mg/dL Normal 70-400 [facility] Comment on above: Order Comment: Speci men Type: BLOOD SPECIMENOrdering Facility: [facility] Address: [address] Performed By: #### S ERIMM ####[facility] LABCLIA [id number] [address] [place] IgG [Mass/Vol] 540 mg/dL Low 700-1600 [facility] Comment on above: Order Comment: Speci men Type: BLOOD SPECIMENOrdering Facility: [facility] Address: [address] [place] [address] Performed By: #### S ERIMM ####[facility] LABCLIA [id number] [address] STATES OF [facility] IgM [Mass/Vol] 504 mg/dL High 40-230 [facility] Comment on above: Order Comment: Speci men Type: BLOOD SPECIMENOrdering Facility: [facility] Address: [address] [place] [address] Performed By: #### S ERIMM ####[facility] LABIA [id number] [address] OF [facility] KAPPA/FARMER,FREE,SERon 2022 Immunoglobulin light chains.kappa.free (S) [Mass/Vol] 14.2 mg/L Normal 3.3-19.4 [facility] Comment on above: Order Comment: Speci men Type: BLOOD SPECIMENOrdering Facility: [facility] Address: [address] [place] [address] Result Comment: Rare ly, increased serum free light chains levels may not be detected or accurately quantified due to prozone phenomenon or in high viscosity samples using this immunoturbidimetric assay. Correlation with other laboratory results and clinical findings is recommended.The [place] Free Light Chain was performed using the Binding Site Optilite immunoturbidimetric method. Result obtained with different assay methods or kits cannot be used interchangeably. Performed By: #### K LFRS ####[facility] LABCLIA [id number] [address] [place] Immunoglobulin light chains.kappa/Immunog lobulin light chains.lambda (S) [Mass ratio] 1.34 Normal 0.26-1.65 [facility] Comment on above: Order Comment: Speci men Type: BLOOD SPECIMENOrdering Facility: [facility] Address: [address] [place] [address] Performed By: #### K LFRS ####[facility] LABCLIA [id number] [place] [address] [place] Immunoglobulin light chains.lambda.free [Mass/Vol] 10.6 mg/L Normal 5.7-26.3 [facility] Comment on above: Order Comment: Speci men Type: BLOOD SPECIMENOrdering Facility: [facility] Address: [address] [place] [address] Result Comment: Rare ly, increased serum free [...] used interchangeably. Performed By: #### K LFRS ####[facility] LABCLIA [id number] [place] [address] [place] LDH SerPl-cCncon 10-15-2022 LDH [Catalytic activity/Vol] 155 U/L Normal 135-214 [facility] Comment on above: Order Comment: Speci men Type: BLOOD SPECIMENOrdering Facility: [facility] Address: [address] [place] [address] Performed By: #### 2 532-0, 97327-5 ####[facility] LABCLIA [id number] [place] [address] PROTEIN ELECTROPHORESIS SERU M WITH DANA (P)on 10-15-2022 Albumin [Mass/Vol] 3.92 g/dL Normal 3.43-5.41 [facility] Comment on above: Order Comment: Speci men Type: BLOOD SPECIMENOrdering Facility: [facility] Address: [address] [place] [address] Performed By: #### L [id number] ####[facility] LABIA [id number] [address] OF [facility] Alpha 1 globulin Elph [Mass/Vol] 0.34 g/dL Normal 0.18-0.43 [facility] Comment on above: Order Comment: Speci men Type: BLOOD SPECIMENOrdering Facility: [facility] Address: [address] [place], [place] [address] Performed By: #### L [id number] ####[facility] LABIA [id number] [address] [place] Alpha 2 globulin Elph [Mass/Vol] 0.84 g/dL Normal 0.42-0.98 [facility] Comment on above: Order Comment: Speci men Type: BLOOD SPECIMENOrdering Facility: [facility] Address: [address] [place], [place] [address] Performed By: #### L [id number] ####[facility] [id number] [address] [place] Beta globulin Elph [Mass/Vol] 0.92 g/dL Normal 0.61-1.17 [facility] Comment on above: Order Comment: Speci men Type: BLOOD SPECIMENOrdering Facility: [facility] Address: [address] [place], [place] [address] Performed By: #### L [id number] ####[facility] LABIA [id number] [place] [address] [place] COMMENT (SERUM PROT ELECTRO) Monoclonal Protein analysis (immunofixation) is not indicated. Normal [facility] Comment on above: Order Comment: Speci men Type: BLOOD SPECIMENOrdering Facility: [facility] Address: [address] [place], [place] [address] Performed By: #### L [id number] ####[facility] LABIA [id number] [address] [place] Gamma globulin Elph [Mass/Vol] 0.68 g/dL Normal 0.53-1.51 [facility] Comment on above: Order Comment: Speci men Type: BLOOD SPECIMENOrdering Facility: [facility] Address: [address] [address] Performed By: #### L [id number] ####[facility] LABCLIA [id number] [address] [place] M-PROTEIN LOCATION Normal [facility] Comment on above: Order Comment: Speci men Type: BLOOD SPECIMENOrdering Facility: [facility] Address: [address] [place] [address] Result Comment: Not Applicable. Performed By: #### L [id number] ####[facility] LABCLIA [id number] [address] [place] Protein Fractions [Interp] No definitive M protein is identified on protein electrophoresis. Normal No definitive M protein is identified on protein electrophor esis. [facility] Comment on above: Order Comment: Speci men Type: BLOOD SPECIMENOrdering Facility: [facility] Address: [address] [place] [address] Performed By: #### L [id number] ####[facility] LABCLIA [id number] [address] [place] Protein.monoclonal Elph [Mass/Vol] 0.00 g/dL Normal <=0.00 [facility] Comment on above: Order Comment: Speci men Type: BLOOD SPECIMENOrdering Facility: [facility] Address: [address] [place], [place] [address] Performed By: #### L [id number] ####[facility] LABCLIA [id number] [address] [place] SPE STAFF REVIEW Reviewed by Chapito holt MD, Ph.D ([id number]) Normal [facility] Comment on above: Order Comment: Speci men Type: BLOOD SPECIMENOrdering Facility: [facility] Address: [address] [address] Performed By: #### L [id number] ####[facility] LABIA [id number] [place] [address] [place] Prot [facility] Protein [Mass/Vol] 6.7 g/dL Normal 6.3-8.0 [facility] Comment on above: Order Comment: Speci men Type: BLOOD SPECIMENOrdering Facility: [facility] Address: [address] [place] [address] Performed By: #### 1 988-5, 28809-22, 2132-01 ####[facility] [id number] [address] Vit B12 [facility] 023 Cobalamin (Vitamin B12) [Mass/Vol] 368 pg/mL Normal 232-1245 [facility] Comment on above: Order Comment: Speci men Type: BLOOD SPECIMENOrdering Facility: [facility] Address: [address] [address] Performed By: #### 1 988-5, 28809-22, 2132-01 ####[facility] [id number] [address] [place] CBC AUTO DIFFon 09-24-2022 BASO # 0.1 103/ul Normal 0.0-0.1 [facility] Comment on above: Performed By: #### U AMIC #### [facility] [address] [address] [address] Manda York Basophils/100 WBC (Bld) 0.6 % Normal 0.2-2.0 [facility] Comment on above: Performed By: #### U AMIC #### [facility] [address] [address] [address] Manda York EO # 0.1 103/ul Normal 0.0-0.7 [facility] Comment on above: Performed By: #### U AMIC #### [facility] [address] [place] [address] Dr. Manda York Eosinophils/100 WBC (Bld) 0.6 % Critically low 0.9-7.0 [facility] Comment on above: Performed By: #### U AMIC #### [facility] [address] [place] [address] Dr. Manda York Erythrocyte distribution width (RBC) [Ratio] 14.6 % Normal 11.0-15.0 [facility] Comment on above: Performed By: #### U AMIC #### [facility] [address] [place] [address] Dr. Manda York Hematocrit (Bld) [Volume fraction] 43.4 % Normal 36.0-48.0 [facility] Comment on above: Performed By: #### U AMIC #### [facility] [address] [place] [address] Dr. Manda York Hemoglobin (Bld) [Mass/Vol] 13.7 g/dL Normal 12.0-16.0 [facility] Comment on above: Performed By: #### U AMIC #### [facility] [address] [place] [address] Dr. Manda York IG # 0.12 10e3/ul Critically high 0.00-0.03 [facility] Comment on above: Performed By: #### U AMIC #### [facility] [address] [place] [address] Dr. Manda York IG % 0.8 % Critically high 0.0-0.[address] [facility] Comment on above: Performed By: #### U AMIC #### [facility] [address] [place] [address] Dr. Manda oYrk LYMPH # 2.6 103/ul Normal 1.2-3.[address] [facility] Comment on above: Performed By: #### U AMIC #### [facility] [address] [place] [address] Dr. Manda York Lymphocytes/100 WBC (Bld) 18.3 % Critically low 20.5-60.0 [facility] Comment on above: Performed By: #### U AMIC #### [facility] [address] [place] [address] Dr. Manda York MANUAL DIFF REQ NO Normal [facility] Comment on above: Performed By: #### U AMIC #### [facility] [address] [place] [address] Dr. Manda York MCH (RBC) [Entitic mass] 29.0 pg Normal 26.7-34.0 [facility] Comment on above: Performed By: #### U AMIC #### [facility] [address] [place] [address] Dr. Manda York MCHC (RBC) [Mass/Vol] 31.6 g/dL Normal 29.9-35.2 [facility] Comment on above: Performed By: #### U AMIC #### [facility] [address] [place] [address] Dr. Manda York MCV (RBC) [Entitic vol] 91.8 fL Normal 81.0-99.0 [facility] Comment on above: Performed By: #### U AMIC #### [facility] [address] [place] [address] Dr. Manda York MONO # 0.7 103/ul Normal 0.3-0.8 [facility] Comment on above: Performed By: #### U AMIC #### [facility] [address] [place] [address] Dr. Manda York Monocytes/100 WBC (Bld) 5.1 % Normal 1.7-12.0 [facility] Comment on above: Performed By: #### U AMIC #### [facility] [address] [place] [address] Dr. Manda York NEUT # 10.6 103/ul Critically high 1.4-6.5 [facility] Comment on above: Performed By: #### U AMIC #### [facility] [address] [place] [address] Dr. Manda York Neutrophils/100 WBC (Bld) 74.6 % Normal 43.0-75.0 [facility] Comment on above: Performed By: #### U AMIC #### [facility] [address] [address] [address] Manda York Platelet mean volume (Bld) [Entitic vol] 9.4 fL Critically low 9.5-13.5 [facility] Comment on above: Performed By: #### U AMIC #### [facility] [address] [address] [address] Manda York PLT 307 103/ul Normal 150-[address] [facility] Comment on above: Performed By: #### U AMIC #### [facility] [address] [address] [address] Manda York RBC 4.73 106/ul Normal 4.20-5.40 [facility] Comment on above: Performed By: #### U AMIC #### [facility] [address] [place] [address] Dr. Manda York WBC 14.2 103/ul Critically high 4.0-11.0 [facility] Comment on above: Performed By: #### U AMIC #### [facility] [address] [place] [address] Dr. Manda York CNNURSEon 09-24-2022 CNNURSE Normal [facility] FREE T4on 09-24-2022 Free T4 [Mass/Vol] 1.31 ng/dL Normal 0.76-1.46 [facility] Comment on above: Performed By: #### F T4 #### [facility] [address] [place] [address] Dr. Manda York GLYCOHEMOGLOBIN A1Con 2022 ADA RECOMMENDATION SEE BELOW Normal [facility] Comment on above: Result Comment: ADA RECOMMENDED LIMIT 4.0 - 6.0 ADA THERAPEUTIC TARGET < 7.0 ACTION SUGGESTED > 7.0 Performed By: #### A 1C #### [facility] [address] [place] [address] Dr. Manda York Glucose [Mass/Vol] 120 mg/dL Normal [facility] Comment on above: Performed By: #### A 1C #### [facility] [address] [place] [address] Dr. Manda York HbA1c (Bld) [Mass fraction] 5.8 % Normal 4.5-6.[address] [facility] Comment on above: Performed By: #### A 1C #### [facility] [address] [place] [address] Dr. Manda York PREG QUANT HCGon 09-24-2022 HCG QUANT <[address] [facility] Comment on above: Performed By: #### F T4 #### [facility] [address] [place] [address] Dr. Manda York HCG RANGE SEE BELOW Normal [facility] Comment on above: Result Comment: 5-50 0.2-1 WEEK 50-500 1-2 WEEKS 100-5,000 2-3 WEEKS 500-10,000 3-4 WEEKS 1,000-50,000 4-5 WEEKS 10,000-100,000 5-6 WEEKS 15,000-200,000 6-8 WEEKS 10,000-100,000 2-3 MONTHS Performed By: #### F T4 #### [facility] [address] [place] [address] Dr. Manda York PROTIMEon 09-24-2022 INR Coag (PPP) [Relative time] {INR} Normal [facility] Comment on above: Performed By: #### F T4 #### [facility] [address] [place] [address] Dr. Manda York INR GUIDELINES SEE BELOW Normal [facility] Comment on above: Result Comment: SHERRY RED INR: 2.0 - 3.0 CONDITIONS NOT LISTED BELOW 2.5 - 3.5 FOR PROSTHETIC HEART VALVE REPLACEMENT 2.5 - 3.5 RECURRENT THROMBOSIS Performed By: #### F T4 #### [facility] [address] [place] [address] Dr. Manda York PT Coag (PPP) [Time] 9.6 s Normal 9.0-11.6 [facility] Comment on above: Performed By: #### F T4 #### [facility] [address] [place] [address] Dr. Manda York PTTon 09-24-2022 aPTT Coag (Bld) [Time] 28.2 s Normal 22.3-36.2 [facility] Comment on above: Performed By: #### F T4 #### [facility] [address] [address] [address] Manda York TSHon 09-24-2022 TSH 0.300 uIU/mL Critically low 0.358-3.740 [facility] Comment on above: Performed By: #### F T4 #### [facility] [address] [address] [address] Manda York US PELVIS TRANSVAGon 023 [...] by: AURORA SHAIKH Date: 2022-09-24 17:50 Normal [facility] PAP ACOG PANEL 2: 30 to 65on 09-18-2022 . . Normal [facility] Comment on above: Result Comment: Perf ormed at: WB Performed By: #### F T4 #### [facility] [address] [address] [address] Manda York Age Gdln ACOG Testing 30-65 Normal [facility] Comment on above: Performed By: #### F T4 #### [facility] [address] [address] [address] Manda York DIAGNOSIS: Comment Normal [facility] Comment on above: Result Comment: NEGA TIVE FOR INTRAEPITHELIAL LESION OR MALIGNANCY. Performed at: WB Performed By: #### F T4 #### [facility] [address] [place] [address] Dr. Manda York HPV Aptima Negative Normal Negative [facility] Comment on above: Result Comment: This nucleic acid amplification test detects fourteen high-risk HPV types (16,18,31,33,35,39,45,51,52,56,58,59,66,68) without differentiation. Performed at: =G Performed By: #### F T4 #### [facility] [address] [place] [address] Dr. Manda York HPV Genotype Reflex Comment Normal [facility] Comment on above: Result Comment: Crit eria not met, HPV Genotype not performed. Performed at: WB Performed By: #### F T4 #### [facility] [address] [place] [address] Dr. Manda York Methodology: Comment Normal [facility] Comment on above: Result Comment: This liquid based ThinPrep(R) pap test was screened with the use of an image guided system. Performed at: WB Performed By: #### F T4 #### [facility] [address] [place] [address] Dr. Manda York Note: Comment Normal [facility] Comment on above: Result Comment: The [...] WB Performed By: #### F T4 #### [facility] [address] [place] [address] Dr. Manda York Performed by: Comment Normal [facility] Comment on above: Result Comment: Lorena Peters, Diesel Truck Driver (ASCP) Performed at: WB Performed By: #### F T4 #### [facility] [address] [place] [address] Dr. Manda York Specimen adequacy: Comment Normal [facility] Comment on above: Result Comment: Sati sfactory for evaluation. Endocervical and/or squamous metaplastic cells (endocervical component) are present. Performed at: WB Performed By: #### F T4 #### [facility] [address] [address] [address] Manda York CNPNon 09-08-2022 CNPN Normal [facility] MG MAMM SCREEN 3D MARK CADon 09-01-2022 MG MAMM SCREEN 3D MARK CAD Patient: JONES HALEY Exam Date: 09/01/2022 : 1980 Gender:F Ordering : DR MADELAINE FERRIS . Admission #: [id number] Family : Order #: [id number] CLICK HERE TO VIEW EXAM RADIOLOGY REPORT [...] stomach cancer at age 56. LOCATION: [facility] BREAST COMPOSITION: Scattered areas fibroglandular density. FINDINGS: [...] Yusuf M.D. on 09/02/2022 at 12:32 Normal [facility] CNNURSEon 08-27-2022 CNNURSE Normal [facility] CNOVSPon 08-27-2022 CNOVSP Normal [facility] CNPNon 08-19-2022 CNPN Normal [facility] 25(OH)D3 SerPl-mCncon 2022 25-hydroxyvitamin D3 [Mass/Vol] 33.1 ng/mL Normal 31.0-80.0 [facility] Comment on above: Order Comment: Speci men Type: BLOOD SPECIMENOrdering Facility: [facility] Address: [address] [address] Result Comment: Clas sification of 25 OH Vitamin D status:Deficiency/Insufficiency: < or = 30 ng/ml.Sufficiency/Optimal Levels: 31-80 ng/mLToxicity: > 100 ng/mL.Test performed by chemiluminescent immunoassay. Performed By: #### 1 989-3 ####[facility] LABCLIA [id number] [place] [address] [place] B2 Microglob SerPl-mCncon Usev-1-Cbwszkpsqyins [Mass/Vol] 1.6 ug/mL Normal 0.8-2.4 [facility] Comment on above: Order Comment: Speci men Type: BLOOD SPECIMENOrdering Facility: [facility] Address: [address] [place], [place] [address] Result Comment: Beta -2 Microglobulin test is performed using the [employer] immunoturbidimetric method. Results obtained with different methods or kits cannot be used interchangeably. Performed By: #### 1 952-1, 1987-5, 2885-2, 2132-9 ####[facility] LABCLIA [id number] [address] [place] CBC W Auto Differential pane l (Bld)on 08-18-2022 Basophils (Bld) [#/Vol] 0.03 10*3/uL Normal <0.11 [facility] Comment on above: Order Comment: Speci men Type: BLOOD SPECIMENOrdering Facility: [facility] Address: [address] [place] [address] Performed By: #### 5 7021-8 ####[facility] LABCLIA [id number] [place] [address] Basophils/100 WBC (Bld) 0.2 % Normal [facility] Comment on above: Order Comment: Speci men Type: BLOOD SPECIMENOrdering Facility: [facility] Address: [address] [place] [address] Performed By: #### 5 7021-8 ####[facility] LABCLIA [id number] [place] [address] Differential cell count method Nom (Bld) Auto Normal [facility] Comment on above: Order Comment: Speci men Type: BLOOD SPECIMENOrdering Facility: [facility] Address: [address] [address] Performed By: #### 5 7021-8 ####[facility] LABCLIA [id number] [place] [address] Eosinophils (Bld) [#/Vol] 0.08 10*3/uL Normal <0.46 [facility] Comment on above: Order Comment: Speci men Type: BLOOD SPECIMENOrdering Facility: [facility] Address: [address] [place] [address] Performed By: #### 5 7021-8 ####[facility] LABIA [id number] [place] [address] Eosinophils/100 WBC (Bld) 0.5 % Normal [facility] Comment on above: Order Comment: Speci men Type: BLOOD SPECIMENOrdering Facility: [facility] Address: [address] [place] [address] Performed By: #### 5 7021-8 ####[facility] LABCLIA [id number] [place] [address] Erythrocyte distribution width (RBC) [Ratio] 14.6 % Normal 11.5-15.0 [facility] Comment on above: Order Comment: Speci men Type: BLOOD SPECIMENOrdering Facility: [facility] Address: [address] [place] [address] Performed By: #### 5 7021-8 ####[facility] LABCLIA [id number] [place] [address] Hematocrit (Bld) [Volume fraction] 41.1 % Normal 36.0-46.0 [facility] Comment on above: Order Comment: Speci men Type: BLOOD SPECIMENOrdering Facility: [facility] Address: [address] [place] [address] Performed By: #### 5 7021-8 ####[facility] LABCLIA [id number] [place] [address] Hemoglobin (Bld) [Mass/Vol] 13.1 g/dL Normal 11.5-15.5 [facility] Comment on above: Order Comment: Speci men Type: BLOOD SPECIMENOrdering Facility: [facility] Address: [address] [place] [address] Performed By: #### 5 7021-8 ####[facility] LABIA [id number] [place] [address] Immature granulocytes (Bld) [#/Vol] 0.11 10*3/uL High <0.10 [facility] Comment on above: Order Comment: Speci men Type: BLOOD SPECIMENOrdering Facility: [facility] Address: [address] [place] [address] Performed By: #### 5 7021-8 ####[facility] LABCLIA [id number] [place] [address] Immature granulocytes/100 WBC (Bld) 0.7 % Normal [facility] Comment on above: Order Comment: Speci men Type: BLOOD SPECIMENOrdering Facility: [facility] Address: [address] [place] [address] Performed By: #### 5 7021-8 ####[facility] LABIA [id number] [place] [address] Lymphocytes (Bld) [#/Vol] 3.19 10*3/uL Normal 1.00-4.00 [facility] Comment on above: Order Comment: Speci men Type: BLOOD SPECIMENOrdering Facility: [facility] Address: [address] [address] Performed By: #### 5 7021-8 ####[facility] LABCLIA [id number] [place] [address] Lymphocytes/100 WBC (Bld) 21.7 % Normal [facility] Comment on above: Order Comment: Speci men Type: BLOOD SPECIMENOrdering Facility: [facility] Address: [address] [place] [address] Performed By: #### 5 7021-8 ####[facility] LABCLIA [id number] [place] [address] MCH (RBC) [Entitic mass] 28.9 pg Normal 26.0-34.0 [facility] Comment on above: Order Comment: Speci men Type: BLOOD SPECIMENOrdering Facility: [facility] Address: [address] [place] [address] Performed By: #### 5 7021-8 ####[facility] LABCLIA [id number] [place] [address] MCHC (RBC) [Mass/Vol] 31.9 g/dL Normal 30.5-36.0 [facility] Comment on above: Order Comment: Speci men Type: BLOOD SPECIMENOrdering Facility: [facility] Address: [address] [place] [address] Performed By: #### 5 7021-8 ####[facility] LABIA [id number] [place] [address] MCV (RBC) [Entitic vol] 90.7 fL Normal 80.0-100.0 [facility] Comment on above: Order Comment: Speci men Type: BLOOD SPECIMENOrdering Facility: [facility] Address: [address] [place] [address] Performed By: #### 5 7021-8 ####[facility] LABCLIA [id number] [place] [address] Monocytes (Bld) [#/Vol] 0.87 10*3/uL High <0.87 [facility] Comment on above: Order Comment: Speci men Type: BLOOD SPECIMENOrdering Facility: [facility] Address: [address] [address] Performed By: #### 5 7021-8 ####[facility] LABCLIA [id number] [place] [address] Monocytes/100 WBC (Bld) 5.9 % Normal [facility] Comment on above: Order Comment: Speci men Type: BLOOD SPECIMENOrdering Facility: [facility] Address: [address] [address] Performed By: #### 5 7021-8 ####[facility] LABCLIA [id number] [place] [address] Neutrophils (Bld) [#/Vol] 10.44 10*3/uL High 1.45-7.50 [facility] Comment on above: Order Comment: Speci men Type: BLOOD SPECIMENOrdering Facility: [facility] Address: [address] [address] Performed By: #### 5 7021-8 ####[facility] LABCLIA [id number] [place] [address] Neutrophils/100 WBC (Bld) 71.0 % Normal [facility] Comment on above: Order Comment: Speci men Type: BLOOD SPECIMENOrdering Facility: [facility] Address: [address] [address] Performed By: #### 5 7021-8 ####[facility] LABCLIA [id number] [place] [address] Nucleated RBC (Bld) [#/Vol] 10*3/uL Normal <0.01 [facility] Comment on above: Order Comment: Speci men Type: BLOOD SPECIMENOrdering Facility: [facility] Address: [address] [place] [address] Performed By: #### 5 7021-8 ####[facility] LABCLIA [id number] [place] [address] Nucleated RBC/100 WBC (Bld) [Ratio] 0.0 /100 WBC Normal [facility] Comment on above: Order Comment: Speci men Type: BLOOD SPECIMENOrdering Facility: [facility] Address: [address] [place] [address] Performed By: #### 5 7021-8 ####[facility] LABCLIA [id number] [place] [address] Platelet mean volume (Bld) [Entitic vol] 9.8 fL Normal 9.0-12.7 [facility] Comment on above: Order Comment: Speci men Type: BLOOD SPECIMENOrdering Facility: [facility] Address: [address] [place] [address] Performed By: #### 5 7021-8 ####[facility] LABIA [id number] [place] [address] Platelets (Bld) [#/Vol] 309 10*3/uL Normal 150-400 [facility] Comment on above: Order Comment: Speci men Type: BLOOD SPECIMENOrdering Facility: [facility] Address: [address] [place] [address] Performed By: #### 5 7021-8 ####[facility] LABCLIA [id number] [place] [address] RBC (Bld) [#/Vol] 4.53 10*6/uL Normal 3.90-5.20 [facility] Comment on above: Order Comment: Speci men Type: BLOOD SPECIMENOrdering Facility: [facility] Address: [address] [place] [address] Performed By: #### 5 7021-8 ####[facility] LABCLIA [id number] [place] [address] WBC (Bld) [#/Vol] 14.72 10*3/uL High 3.70-11.00 [facility] Comment on above: Order Comment: Speci men Type: BLOOD SPECIMENOrdering Facility: [facility] Address: [address] [place] [address] Performed By: #### 5 7021-8 ####[facility] LABCLIA [id number] [place] [address] CRP SerPl-mCncon 08-18-2022 CRP [Mass/Vol] 0.3 mg/dL Normal <0.9 [facility] Comment on above: Order Comment: Speci men Type: BLOOD SPECIMENOrdering Facility: [facility] Address: [address] [place] [address] Performed By: #### 1 952-1, 1987-09, 2885-2, 2132-9 ####[facility] LABCLIA [id number] [place] [address] [place] Calcium.ionized [Moles/Vol]o n 08-18-2022 Calcium.ionized (Bld) [Mass/Vol] 1.29 mmol/L Normal 1.08-1.30 [facility] Comment on above: Order Comment: Speci men Type: BLOOD SPECIMENOrdering Facility: [facility] Address: [address] [place] [address] Performed By: #### 1 995-0 ####[facility] LABCLIA [id number] [address] [place] Calcium.ionized adjusted to pH 7.4 (Bld) [Moles/Vol] 1.27 mmol/L Normal 1.08-1.30 [facility] Comment on above: Order Comment: Speci men Type: BLOOD SPECIMENOrdering Facility: [facility] Address: [address] [place] [address] Performed By: #### 1 995-0 ####[facility] LABCLIA [id number] [address] [place] Comprehensive metabolic 2000 panelon 08-18-2022 Albumin [Mass/Vol] 4.2 g/dL Normal 3.9-4.9 [facility] Comment on above: Order Comment: Speci men Type: BLOOD SPECIMENOrdering Facility: [facility] Address: [address] [place] [address] Performed By: #### 2 532-0, 2777-1, 3084-1, 17918-6 ####[facility] LABCLIA [id number] [place] [address] ALP [Catalytic activity/Vol] 66 U/L Normal 34-123 [facility] Comment on above: Order Comment: Speci men Type: BLOOD SPECIMENOrdering Facility: [facility] Address: [address] [place] [address] Performed By: #### 2 532-0, 2777-1, 3084-1, 39414-0 ####[facility] LABIA [id number] [place] [address] ALT [Catalytic activity/Vol] 22 U/L Normal 7-38 [facility] Comment on above: Order Comment: Speci men Type: BLOOD SPECIMENOrdering Facility: [facility] Address: [address] [place] [address] Performed By: #### 2 532-0, 2777-1, 3084-1, 42619-0 ####[facility] LABIA [id number] [place] [address] Anion gap [Moles/Vol] 11 mmol/L Normal 9-18 [facility] Comment on above: Order Comment: Speci men Type: BLOOD SPECIMENOrdering Facility: [facility] Address: [address] [place] [address] Performed By: #### 2 532-0, 2777-1, 3084-1, 20908-6 ####[facility] LABCLIA [id number] [place] [address] AST [Catalytic activity/Vol] 9 U/L Low 13-35 [facility] Comment on above: Order Comment: Speci men Type: BLOOD SPECIMENOrdering Facility: [facility] Address: [address] [place] [address] Performed By: #### 2 532-0, 2777-1, 308-, 83002-7 ####[facility] LABCLIA [id number] [place] [address] Bilirubin [Mass/Vol] 0.2 mg/dL Normal 0.2-1.3 [facility] Comment on above: Order Comment: Speci men Type: BLOOD SPECIMENOrdering Facility: [facility] Address: [address] [place] [address] Performed By: #### 2 532-0, 2777-1, 3083-05, ####[facility] LABCL[facility] [id number] [place] [address] Calcium [Mass/Vol] 9.3 mg/dL Normal 8.5-10.2 [facility] Comment on above: Order Comment: Speci men Type: BLOOD SPECIMENOrdering Facility: [facility] Address: [address] [place] [address] Performed By: #### 2 532-0, 2777-1, 3083-05, ####[facility] LABCLIA [id number] [place] [address] Chloride [Moles/Vol] 106 mmol/L High 97-105 [facility] Comment on above: Order Comment: Speci men Type: BLOOD SPECIMENOrdering Facility: [facility] Address: [address] [place] [address] Performed By: #### 2 532-0, 2777-1, 3083-05, 85697-4 ####[facility] LABCLIA [id number] [place] [address] CO2 [Moles/Vol] 23 mmol/L Normal 22-30 [facility] Comment on above: Order Comment: Speci men Type: BLOOD SPECIMENOrdering Facility: [facility] Address: [address] [address] Performed By: #### 2 532-0, 2777-1, 3083-, ####[facility] LABCLIA [id number] [place] [address] Creatinine [Mass/Vol] 0.68 mg/dL Normal 0.58-0.96 [facility] Comment on above: Order Comment: Speci men Type: BLOOD SPECIMENOrdering Facility: [facility] Address: [address] [address] Performed By: #### 2 532-0, 2776-1, 3083-05, ####[facility] LABCLIA [id number] [place] [address] ESTIMATED GLOMERULAR FILTRATION RATE 112 mL/min/1.73m??? Normal >=60 [facility] Comment on above: Order Comment: Speci men Type: BLOOD SPECIMENOrdering Facility: [facility] Address: [address] [address] Result Comment: Erin mated Glomerular Filtration Rate [...] Performed By: #### 2 532-0, 2777-1, 3083-05, ####[facility] LABIA [id number] [place] [address] Glucose [Mass/Vol] 119 mg/dL High 74-99 [facility] Comment on above: Order Comment: Speci men Type: BLOOD SPECIMENOrdering Facility: [facility] Address: [address] [address] Result Comment: The [place] Diabetes Association (ADA) provides guidance for cutoff [...] Standards of Medical Care in Diabetes 2016, [place] [employer]. Diabetes Care. 2016.39(Suppl 1). Performed By: #### 2 532-0, 2777-1, 3084-, 96824-5 ####[facility] LABCLIA [id number] [place] [address] Potassium [Moles/Vol] 3.7 mmol/L Normal 3.7-5.1 [facility] Comment on above: Order Comment: Speci men Type: BLOOD SPECIMENOrdering Facility: [facility] Address: [address] [place], [place] [id number] Performed By: #### 2 532-0, 2777-1, 3083-05, 77865-0 ####[facility] LABIA [id number] [place] [address] Protein [Mass/Vol] 7.1 g/dL Normal 6.3-8.0 [facility] Comment on above: Order Comment: Speci men Type: BLOOD SPECIMENOrdering Facility: [facility] Address: [address] [phone] Performed By: #### 2 532-0, 2777-1, 30808-22, 20740-4 ####[facility] LABIA [id number] [place] [address] Sodium [Moles/Vol] 140 mmol/L Normal 136-144 [facility] Comment on above: Order Comment: Speci men Type: BLOOD SPECIMENOrdering Facility: [facility] Address: [address] [address] Performed By: #### 2 532-0, 2777-1, 3084-1, 64153-8 ####[facility] LABCLIA [id number] [place] [address] Urea nitrogen [Mass/Vol] 11 mg/dL Normal 7-21 [facility] Comment on above: Order Comment: Speci men Type: BLOOD SPECIMENOrdering Facility: [facility] Address: [address] [address] Performed By: #### 2 532-0, 2777-1, 3084-1, 31073-5 ####[facility] LABCLIA [id number] [place] [address] ESR Westergren method (Bld) [Velocity]on 08-18-2022 ESR (Bld) [Velocity] 25 mm/h High 0-20 [facility] Comment on above: Order Comment: Speci men Type: BLOOD SPECIMENOrdering Facility: [facility] Address: [address] [address] Performed By: #### 4 537-7 ####[facility] LABIA [id number] [address] [place] IMMUNOFIXATION SCREEN, SERUM on 08-18-2022 MPA RESULT No M protein is identified. Normal No M protein is identified. [facility] Comment on above: Order Comment: Speci men Type: BLOOD SPECIMENOrdering Facility: [facility] Address: [address] [address] Performed By: #### I [facility] ####[facility] LABIA [id number] [address] [place] STAFF REVIEW (MPA) Reviewed by Dr. Gregg Ortez MD [facility] Comment on above: Order Comment: Speci men Type: BLOOD SPECIMENOrdering Facility: [facility] Address: [address] [address] Performed By: #### I FES ####[facility] LABCLIA [id number] [place] [address] [place] IMMUNOGLOBULINS GAMon 2022 IgA [Mass/Vol] 188 mg/dL Normal 70-400 [facility] Comment on above: Order Comment: Speci men Type: BLOOD SPECIMENOrdering Facility: [facility] Address: [address] [place] [address] Performed By: #### S ERIMM ####[facility] LABCLIA [id number] [place] [address] [place] IgG [Mass/Vol] 591 mg/dL Low 700-1600 [facility] Comment on above: Order Comment: Speci men Type: BLOOD SPECIMENOrdering Facility: [facility] Address: [address] [place] [address] Performed By: #### S ERIMM ####[facility] LABCLIA [id number] [place] [address] [place] IgM [Mass/Vol] 513 mg/dL High 40-230 [facility] Comment on above: Order Comment: Speci men Type: BLOOD SPECIMENOrdering Facility: [facility] Address: [address] [place] [address] Performed By: #### S ERIMM ####[facility] LABIA [id number] [place] [address] [place] KAPPA/FARMER,FREE,SERon 2022 Immunoglobulin light chains.kappa.free (S) [Mass/Vol] 13.9 mg/L Normal 3.3-19.4 [facility] Comment on above: Order Comment: Speci men Type: BLOOD SPECIMENOrdering Facility: [facility] Address: [address] [place] [address] Result Comment: Rare ly, increased serum free light chains levels may not be detected or accurately quantified due to prozone phenomenon or in high viscosity samples using this immunoturbidimetric assay. Correlation with other laboratory results and clinical findings is recommended.The [place] Free Light Chain was performed using the Binding Site Optilite immunoturbidimetric method. Result obtained with different assay methods or kits cannot be used interchangeably. Performed By: #### K LFRS ####[facility] LABCLIA [id number] [place] [address] [place] Immunoglobulin light chains.kappa/Immunog lobulin light chains.lambda (S) [Mass ratio] 1.51 Normal 0.26-1.65 [facility] Comment on above: Order Comment: Speci men Type: BLOOD SPECIMENOrdering Facility: [facility] Address: [address] [place] [address] Performed By: #### K LFRS ####[facility] [id number] [place] [address] [place] Immunoglobulin light chains.lambda.free [Mass/Vol] 9.2 mg/L Normal 5.7-26.3 [facility] Comment on above: Order Comment: Speci men Type: BLOOD SPECIMENOrdering Facility: [facility] Address: [address] [place] [address] Result Comment: Rare ly, increased serum free [...] used interchangeably. Performed By: #### K LFRS ####[facility] LABIA [id number] [place] [address] [place] LDH SerPl-cCncon 08-18-2022 LDH [Catalytic activity/Vol] 164 U/L Normal 135-214 [facility] Comment on above: Order Comment: Speci men Type: BLOOD SPECIMENOrdering Facility: [facility] Address: [address] [place] [address] Performed By: #### 2 532-0, 2777-1, 3084-1, 76250-2 ####[facility] LABCLIA [id number] [place] [id number] PROTEIN ELECTROPHORESIS SERU M (P)on 08-18-2022 Albumin [Mass/Vol] 3.95 g/dL Normal 3.43-5.41 [facility] Comment on above: Order Comment: Speci men Type: BLOOD SPECIMENOrdering Facility: [facility] Address: [address] [place] [address] Performed By: #### L [id number] ####[facility] LABCLIA [id number] [place] [address] [place] Alpha 1 globulin Elph [Mass/Vol] 0.35 g/dL Normal 0.18-0.43 [facility] Comment on above: Order Comment: Speci men Type: BLOOD SPECIMENOrdering Facility: [facility] Address: [address] [place] [address] Performed By: #### L [id number] ####[facility] LABCLIA [id number] [place] [address] [place] Alpha 2 globulin Elph [Mass/Vol] 0.80 g/dL Normal 0.42-0.98 [facility] Comment on above: Order Comment: Speci men Type: BLOOD SPECIMENOrdering Facility: [facility] Address: [address] [place] [address] Performed By: #### L [id number] ####[facility] LABCLIA [id number] [place] [address] [place] Beta globulin Elph [Mass/Vol] 1.06 g/dL Normal 0.61-1.17 [facility] Comment on above: Order Comment: Speci men Type: BLOOD SPECIMENOrdering Facility: [facility] Address: [address] [place] [address] Performed By: #### L [id number] ####[facility] LABCLIA [id number] [address] [place] Gamma globulin Elph [Mass/Vol] 0.74 g/dL Normal 0.53-1.51 [facility] Comment on above: Order Comment: Speci men Type: BLOOD SPECIMENOrdering Facility: [facility] Address: [address] [place] [address] Performed By: #### L [id number] ####[facility] LABIA [id number] [address] [place] M-PROTEIN LOCATION Normal [facility] Comment on above: Order Comment: Speci men Type: BLOOD SPECIMENOrdering Facility: [facility] Address: [address] [place] [address] Result Comment: Not Applicable. Performed By: #### L [id number] ####[facility] [id number] [address] OF [facility] Protein Fractions [Interp] No definitive M protein is identified on protein electrophoresis. Normal No definitive M protein is identified on protein electrophor esis. [facility] Comment on above: Order Comment: Speci men Type: BLOOD SPECIMENOrdering Facility: [facility] Address: [address] [place] [address] Performed By: #### L [id number] ####[facility] LABIA [id number] [address] [place] Protein.monoclonal Elph [Mass/Vol] 0.00 g/dL Normal <=0.00 [facility] Comment on above: Order Comment: Speci men Type: BLOOD SPECIMENOrdering Facility: [facility] Address: [address] [place] [address] Performed By: #### L [id number] ####[facility] LABIA [id number] [place] [address] [place] SPE STAFF REVIEW Reviewed by Dr. Gregg Ortez MD Normal [facility] Comment on above: Order Comment: Speci men Type: BLOOD SPECIMENOrdering Facility: [facility] Address: [address] [place] [address] Performed By: #### L [id number] ####[facility] LABCLIA [id number] [place] [address] [place] Phosphate SerPl-mCncon 08-18 Phosphate [Mass/Vol] 3.6 mg/dL Normal 2.7-4.8 [facility] Comment on above: Order Comment: Speci men Type: BLOOD SPECIMENOrdering Facility: [facility] Address: [address] [place] [address] Performed By: #### 2 532-0, 2777-1, 3084-1, 53226-9 ####[facility] LABIA [id number] [place] [id number] Prot SerPl-mCncon 08-18-2022 Protein [Mass/Vol] 6.9 g/dL Normal 6.3-8.0 [facility] Comment on above: Order Comment: Speci men Type: BLOOD SPECIMENOrdering Facility: [facility] Address: [address] [place] [address] Performed By: #### 1 952-1, 1987-5, 2885-2, 2132-9 ####[facility] LABCLIA [id number] [place] [address] [place] Urate SerPl-mCncon Urate [Mass/Vol] 3.8 mg/dL Normal 2.5-6.6 [facility] Comment on above: Order Comment: Speci men Type: BLOOD SPECIMENOrdering Facility: [facility] Address: [address] [place] [address] Performed By: #### 2 532-0, 2777-1, 3084-1, 03440-4 ####[facility] LABCLIA [id number] [place] [address] Vit B12 SerPl-ncon 023 Cobalamin (Vitamin B12) [Mass/Vol] 325 pg/mL Normal 232-1245 [facility] Comment on above: Order Comment: Speci men Type: BLOOD SPECIMENOrdering Facility: [facility] Address: [address] [phone] Performed By: #### 1 952-1, 1987-, 2884-2, 2132-01 ####[facility] LABCLIA [id number] [address] [address] [place] [facility] CNPNon 07-28-2022 CNPN Normal [facility] CNPNon 07-24-2022 CNPN Normal [facility] MRI KNEE RT WO CONon [...] by: MADELAINE GOMEZ Date: 2022-04-01 08:24 Normal [facility] PNEUMOCOCCAL IGG ABS, 23 SER OTYPESon 03-21-2022 Pneumococcal Interpretation See Note [facility] S. pneumoniae 1 IgG (S) [Mass/Vol] 0.27 ug/mL [facility] S. pneumoniae 12 IgG (S) [Mass/Vol] 0.08 ug/mL [facility] S. pneumoniae 14 IgG (S) [Mass/Vol] 0.19 ug/mL [facility] S. pneumoniae 17 IgG (S) [Mass/Vol] 1.72 ug/mL [facility] S. pneumoniae 19 IgG (S) [Mass/Vol] 1.52 ug/mL [facility] S. pneumoniae 2 IgG (S) [Mass/Vol] 0.44 ug/mL [facility] S. pneumoniae 20 IgG (S) [Mass/Vol] 1.53 ug/mL [facility] S. pneumoniae 22 IgG (S) [Mass/Vol] 0.99 ug/mL [facility] S. pneumoniae 23 IgG (S) [Mass/Vol] 0.14 ug/mL [facility] S. pneumoniae 3 IgG (S) [Mass/Vol] 0.36 ug/mL [facility] S. pneumoniae 34 IgG (S) [Mass/Vol] 5.77 ug/mL [facility] S. pneumoniae 4 IgG (S) [Mass/Vol] 0.06 ug/mL [facility] S. pneumoniae 43 IgG (S) [Mass/Vol] 0.93 ug/mL [facility] S. pneumoniae 5 IgG (S) [Mass/Vol] 0.89 ug/mL [facility] S. pneumoniae 8 IgG (S) [Mass/Vol] 0.58 ug/mL [facility] S. pneumoniae 9 IgG (S) [Mass/Vol] 0.4 ug/mL [facility] S. pneumoniae Armenian type 15B IgG (S) [Mass/Vol] 8.27 ug/mL [facility] S. pneumoniae Armenian type 18C IgG (S) [Mass/Vol] 0.39 ug/mL [facility] S. pneumoniae Armenian type 19A IgG (S) [Mass/Vol] 17.72 ug/mL [facility] S. pneumoniae Armenian type 33F IgG (S) [Mass/Vol] 3.04 ug/mL [facility] S. pneumoniae Armenian type 6B IgG (S) [Mass/Vol] 0.82 ug/mL [facility] S. pneumoniae Armenian type 7F IgG (S) [Mass/Vol] 0.34 ug/mL [facility] S. pneumoniae Armenian type 9V IgG (S) [Mass/Vol] 0.78 ug/mL [facility] XR KNEE RT 4V or >on 022 [...] by: KRISTINA GARRETT Date: 2022-03-21 16:[address] [facility] DIPHTHER/TETANUS ABon 2021 C. diphtheriae IgG Qn (S) 0.1 IU/mL [facility] C. tetani toxoid IgG IA Qn 1 IU/mL [facility] IGA BLDon 03-18-2022 IgA [Mass/Vol] 182 mg/dL 70 - 400 mg/dL [facility] IGE BLDon 03-18-2022 IgE Qn 12.3 kU/l <114.0 kU/l [facility] IGGon 03-18-2022 IgG [Mass/Vol] 618 mg/dL Low 700 - 1,600 mg/dL [facility] IGMon 03-18-2022 IgM [Mass/Vol] 514 mg/dL High 40 - 230 mg/dL [facility] Immunodeficiency panel FC (B ld)on 03-18-2022 CD3 cells (Bld) [#/Vol] 2841 cells/uL High 958 - 2,388 cells/uL [facility] CD3 cells/100 cells (Bld) 81 % 60 - 89 % [facility] CD3+CD4+ (T4 helper) cells (Bld) [#/Vol] 1621 cells/uL 533 - 1,674 cells/uL [facility] CD3+CD4+ (T4 helper) cells/100 cells (Bld) 46 % 34 - 61 % [facility] CD3+CD4+ (T4 helper) cells/CD3+CD8+ (T8 suppressor cells) cells (Bld) [# ratio] 1.55 % 1.10 - 3.25 [facility] CD3+CD8+ (T8 suppressor cells) cells (Bld) [#/Vol] 1049 cells/uL High 175 - 958 cells/uL [facility] CD3+CD8+ (T8 suppressor cells) cells/100 cells (Bld) 30 % 10 - 41 % [facility] CD3-CD16+CD56+ (Natural killer) cells (Bld) [#/Vol] 193 cells/uL 102 - 565 cells/uL [facility] CD3-CD16+CD56+ (Natural killer) cells/100 cells (Bld) 5 % 5 - 25 % [facility] CD3-CD19+ cells (Bld) [#/Vol] 475 cells/uL 75 - 660 cells/uL [facility] CD3-CD19+ cells/100 cells (Bld) 13 % 5 - 22 % [facility] CBC W Auto Differential pane l (Bld)on 03-17-2022 Basophils (Bld) [#/Vol] 0.07 10*3/uL <0.11 k/uL [facility] Basophils/100 WBC (Bld) 0.6 % [facility] Differential cell count method Nom (Bld) Auto [facility] Eosinophils (Bld) [#/Vol] 0.18 10*3/uL <0.46 k/uL [facility] Eosinophils/100 WBC (Bld) 1.6 % [facility] Erythrocyte distribution width (RBC) [Ratio] 14.6 % 11.5 - 15.0 % [facility] Hematocrit (Bld) [Volume fraction] 40.5 % 36.0 - 46.0 % [facility] Hemoglobin (Bld) [Mass/Vol] 13.0 g/dL 11.5 - 15.5 g/dL [facility] Immature granulocytes (Bld) [#/Vol] 0.06 10*3/uL <0.10 k/uL [facility] Immature granulocytes/100 WBC (Bld) 0.5 % [facility] Lymphocytes (Bld) [#/Vol] 2.97 10*3/uL 1.00 - 4.00 k/uL [facility] Lymphocytes/100 WBC (Bld) 26.9 % [facility] MCH (RBC) [Entitic mass] 28.4 pg 26.0 - 34.0 pg [facility] MCHC (RBC) [Mass/Vol] 32.1 g/dL 30.5 - 36.0 g/dL [facility] MCV (RBC) [Entitic vol] 88.4 fL 80.0 - 100.0 fL [facility] Monocytes (Bld) [#/Vol] 0.79 10*3/uL <0.87 k/uL [facility] Monocytes/100 WBC (Bld) 7.2 % [facility] Neutrophils (Bld) [#/Vol] 6.97 10*3/uL 1.45 - 7.50 k/uL [facility] Neutrophils/100 WBC (Bld) 63.2 % [facility] Nucleated RBC (Bld) [#/Vol] <0.01 k/uL [facility] Nucleated RBC/100 WBC (Bld) [Ratio] 0.0 /100 WBC [facility] Platelet mean volume (Bld) [Entitic vol] 9.9 fL 9.0 - 12.7 fL [facility] Platelets (Bld) [#/Vol] 314 10*3/uL 150 - 400 k/uL [facility] RBC (Bld) [#/Vol] 4.58 10*6/uL 3.90 - 5.2 0 m/uL [facility] WBC (Bld) [#/Vol] 11.04 10*3/uL High 3.70 - 11.00 k/uL [facility] ECHOCARDIO M/2D COMPLETEon 1 ECHOCARDIO M/2D COMPLETE Patient: JONES HALEY Exam Date: 03/12/2022 : 1980 Gender:F Ordering : DR MADELAINE FERRIS . Admission #: [id number] Family : Order #: [id number] CLICK HERE TO VIEW EXAM ECHOCARDIOGRAM REPORT [...] M.D. on 03/16/2022 at 16:[address] [facility] INSULINon 03-11-2022 Insulin 17.8 uIU/mL Normal 2.6-24.9 [facility] Comment on above: Performed By: #### C BC #### [facility] [address] [place] [address] Dr. Manda York CBC AUTO DIFFon 03-09-2022 BASO # 0.1 103/ul Normal 0.0-0.1 [facility] Comment on above: Performed By: #### C BC #### [facility] [address] [place] [address] Dr. Manda York Basophils/100 WBC (Bld) 0.4 % Normal 0.2-2.0 [facility] Comment on above: Performed By: #### C BC #### [facility] [address] [place] [address] Dr. Manda York EO # 0.2 103/ul Normal 0.0-0.7 [facility] Comment on above: Performed By: #### C BC #### [facility] [address] [place] [address] Dr. Manda York Eosinophils/100 WBC (Bld) 1.2 % Normal 0.9-7.0 [facility] Comment on above: Performed By: #### C BC #### [facility] [address] [place] [address] Dr. Manda York Erythrocyte distribution width (RBC) [Ratio] 14.6 % Normal 11.0-15.0 [facility] Comment on above: Performed By: #### C BC #### [facility] [address] [place] [address] Dr. Manda York Hematocrit (Bld) [Volume fraction] 39.2 % Normal 36.0-48.0 [facility] Comment on above: Performed By: #### C BC #### [facility] [address] [place] [address] Dr. Manda York Hemoglobin (Bld) [Mass/Vol] 12.7 g/dL Normal 12.0-16.0 [facility] Comment on above: Performed By: #### C BC #### [facility] [address] [place] [address] Dr. Manda York IG # 0.06 10e3/ul Critically high 0.00-0.03 [facility] Comment on above: Performed By: #### C BC #### [facility] [address] [place] [address] Dr. Manda York IG % 0.5 % Normal 0.0-0.5 [facility] Comment on above: Performed By: #### C BC #### [facility] [address] [place] [address] Dr. Manda York LYMPH # 3.7 103/ul Normal 1.2-3.8 [facility] Comment on above: Performed By: #### C BC #### [facility] [address] [place] [address] Dr. Manda York Lymphocytes/100 WBC (Bld) 31.0 % Normal 20.5-60.0 [facility] Comment on above: Performed By: #### C BC #### [facility] [address] [place] [address] Dr. Manda York MANUAL DIFF REQ NO Normal [facility] Comment on above: Performed By: #### C BC #### [facility] [address] [place] [address] Dr. Manda York MCH (RBC) [Entitic mass] 28.9 pg Normal 26.7-34.0 [facility] Comment on above: Performed By: #### C BC #### [facility] [address] [place] [address] Dr. Manda York MCHC (RBC) [Mass/Vol] 32.4 g/dL Normal 29.9-35.2 [facility] Comment on above: Performed By: #### C BC #### [facility] [address] [place] [address] Dr. Manda York MCV (RBC) [Entitic vol] 89.1 fL Normal 81.0-99.0 [facility] Comment on above: Performed By: #### C BC #### [facility] [address] [place] [address] Dr. Manda York MONO # 0.7 103/ul Normal 0.3-0.8 [facility] Comment on above: Performed By: #### C BC #### [facility] [address] [place] [address] Dr. Manda York Monocytes/100 WBC (Bld) 5.8 % Normal 1.7-12.0 [facility] Comment on above: Performed By: #### C BC #### [facility] [address] [place] [address] Dr. Manda York NEUT # 7.3 103/ul Critically high 1.4-6.[address] [facility] Comment on above: Performed By: #### C BC #### [facility] [address] [address] [address] Manda York Neutrophils/100 WBC (Bld) 61.1 % Normal 43.0-75.0 [facility] Comment on above: Performed By: #### C BC #### [facility] [address] [address] [address] Manda York Platelet mean volume (Bld) [Entitic vol] 9.7 fL Normal 9.5-13.5 [facility] Comment on above: Performed By: #### C BC #### [facility] [address] [place] [address] Dr. Manda York PLT 297 103/ul Normal 150-450 [facility] Comment on above: Performed By: #### C BC #### [facility] [address] [place] [address] Dr. Manda York RBC 4.40 106/ul Normal 4.20-5.40 [facility] Comment on above: Performed By: #### C BC #### [facility] [address] [place] [address] Dr. Manda York WBC 12.0 103/ul Critically high 4.0-11.0 [facility] Comment on above: Performed By: #### C BC #### [facility] [address] [place] [address] Dr. Manda York FREE THYROXINE INDEX T7on FTI 3.81 Normal 1.30-4.50 [facility] Comment on above: Performed By: #### U AMIC #### [facility] [address] [place] [address] Dr. Manda York T3U 34.0 % Normal 30.0-39.[address] [facility] Comment on above: Performed By: #### U AMIC #### [facility] [address] [place] [address] Dr. Manda York T4 [Mass/Vol] 11.20 ug/dL Normal 4.80-13.90 [facility] Comment on above: Performed By: #### U AMIC #### [facility] [address] [place] [address] Dr. Manda York GLYCOHEMOGLOBIN A1Con 2021 ADA RECOMMENDATION SEE BELOW Normal [facility] Comment on above: Result Comment: ADA RECOMMENDED LIMIT 4.0 - 6.0 ADA THERAPEUTIC TARGET < 7.0 ACTION SUGGESTED > 7.0 Performed By: #### S LUIGI MELO #### [facility] [address] [place] [address] Dr. Manda York Glucose [Mass/Vol] 117 mg/dL Normal [facility] Comment on above: Performed By: #### S LUIGI MELO #### [facility] [address] [place] [address] Dr. Manda York HbA1c (Bld) [Mass fraction] 5.7 % Normal 4.5-6.2 [facility] Comment on above: Performed By: #### LUIGI PATRICK #### [facility] [address] [place] [address] Dr. Manda York IRONon 03-09-2022 Iron [Mass/Vol] 61.0 ug/dL Normal 50.0-170.0 [facility] Comment on above: Performed By: #### C BC #### [facility] [address] [place] [address] Dr. Manda York LIPID PROFILEon 03-09-2022 CHOL-HDL RATIO NORM SEE BELOW Normal [facility] Comment on above: Result Comment: 3.3 - 4.4 LOW RISK 4.4 - 7.1 AVERAGE RISK 7.1 - 11.0 MODERATE RISK >11.0 HIGH RISK Performed By: #### U AMIC #### [facility] [address] [place] [address] Dr. Manda York Cholesterol [Mass/Vol] 260 mg/dL Critically high <=[address] [facility] Comment on above: Performed By: #### U AMIC #### [facility] [address] [place] [address] Dr. Manda York Cholesterol in HDL [Mass/Vol] 38 mg/dL Critically low 40-60 [facility] Comment on above: Performed By: #### U AMIC #### [facility] [address] [address] [address] Manda York Cholesterol in LDL [Mass/Vol] 170.8 mg/dL Normal [facility] Comment on above: Performed By: #### U AMIC #### [facility] [address] [address] [address] Manda York Cholesterol.total/Ch olesterol in HDL [Mass ratio] 6.8 {ratio} Normal [facility] Comment on above: Performed By: #### U AMIC #### [facility] [address] [address] [address] Manda York HDL NORMAL > or = 60 mg/dl - LO W CARDIOVASCULAR RISK <40 mg/dl - HIGH CARDIOVASCULAR RISK Normal [facility] Comment on above: Performed By: #### U AMIC #### [facility] [address] [address] [address] Manda York LDL CALC NORMAL SEE BELOW Normal [facility] Comment on above: Result Comment: <100 mg/dl OPTIMAL 100 - 129 mg/dl NEAR OR ABOVE OPTIMAL 130 - 159 mg/dl BORDERLINE HIGH 160 - 189 mg/dl HIGH >190 mg/dl VERY HIGH Performed By: #### U AMIC #### [facility] [address] [address] [address] Manda York Triglyceride [Mass/Vol] 256 mg/dL Critically high <=[address] [facility] Comment on above: Performed By: #### U AMIC #### [facility] [address] [address] [address] Manda York VLDL CALC 51.2 mg/dL Normal [facility] Comment on above: Performed By: #### U AMIC #### [facility] [address] [address] [address] Manda York PROF 14(COMP METB)on 022 Albumin [Mass/Vol] 3.8 g/dL Normal 3.4-5.0 [facility] Comment on above: Performed By: #### U AMIC #### [facility] [address] [place] [address] Dr. Manda York Albumin/Globulin [Mass ratio] 1.0 {ratio} Normal [facility] Comment on above: Performed By: #### U AMIC #### [facility] [address] [address] [address] Manda York ALP [Catalytic activity/Vol] 66 U/L Normal 46-[address] [facility] Comment on above: Performed By: #### U AMIC #### [facility] [address] [address] [address] Manda York ALT [Catalytic activity/Vol] 27 U/L Normal 14-59 [facility] Comment on above: Performed By: #### U AMIC #### [facility] [address] [address] [address] Manda York Anion gap [Moles/Vol] 11.8 mmol/L Normal [facility] Comment on above: Performed By: #### U AMIC #### [facility] [address] [address] [address] Manda York AST [Catalytic activity/Vol] 9 U/L Critically low 15-37 [facility] Comment on above: Performed By: #### U AMIC #### [facility] [address] [address] [address] Manda York Bilirubin [Mass/Vol] 0.2 mg/dL Normal 0.2-1.0 [facility] Comment on above: Performed By: #### U AMIC #### [facility] [address] [address] [address] Manda York Calcium [Mass/Vol] 9.1 mg/dL Normal 8.5-10.[address] [facility] Comment on above: Performed By: #### U AMIC #### [facility] [address] [address] [address] Manda York Chloride [Moles/Vol] 101 mmol/L Normal 98-[address] [facility] Comment on above: Performed By: #### U AMIC #### [facility] [address] [address] [address] Manda York CO2 [Moles/Vol] 26.1 mmol/L Normal 21.0-32.0 [facility] Comment on above: Performed By: #### U AMIC #### [facility] [address] [address] [address] Manda York Creatinine [Mass/Vol] 0.80 mg/dL Normal 0.55-1.02 [facility] Comment on above: Performed By: #### U AMIC #### [facility] [address] [address] [address] Manda York EGFR-AF RUSSIAN >60 Normal >=60 [facility] Comment on above: Performed By: #### U AMIC #### [facility] [address] [address] [address] Manda York EGFR-NON AF RUSSIAN >60 Normal >=60 [facility] Comment on above: Performed By: #### U AMIC #### [facility] [address] [place] [address] Dr. Manda York Globulin (S) [Mass/Vol] 3.8 g/dL Normal [facility] Comment on above: Performed By: #### U AMIC #### [facility] [address] [place] [address] Dr. Manda York Glucose [Mass/Vol] 93 mg/dL Normal 74-106 [facility] Comment on above: Performed By: #### U AMIC #### [facility] [address] [place] [address] Dr. Manda York Potassium [Moles/Vol] 3.9 mmol/L Normal 3.5-5.[address] [facility] Comment on above: Performed By: #### U AMIC #### [facility] [address] [place] [address] Dr. Manda York Protein [Mass/Vol] 7.6 g/dL Normal 6.4-8.[address] [facility] Comment on above: Performed By: #### U AMIC #### [facility] [address] [place] [address] Dr. Manda York Sodium [Moles/Vol] 135 mmol/L Critically low 136-145 [facility] Comment on above: Performed By: #### U AMIC #### [facility] [address] [address] [address] Manda York Urea nitrogen [Mass/Vol] 10.0 mg/dL Normal 7.0-18.0 [facility] Comment on above: Performed By: #### U AMIC #### [facility] [address] [address] [address] Manda York Urea nitrogen/Creatinine [Mass ratio] 12.5 mg/mg Normal [facility] Comment on above: Performed By: #### U AMIC #### [facility] [address] [address] [address] Manda York TSHon 03-09-2022 TSH 0.610 uIU/mL Normal 0.358-3.740 [facility] Comment on above: Performed By: #### U AMIC #### [facility] [address] [address] [address] Manda York B2 MICROGLOBULIN Bon 022 Eilk-9-Pefuwkgqzjetn [Mass/Vol] 1.8 ug/mL 0.8 - 2.4 mg/L [facility] FERRITIN BLDon 03-05-2022 Ferritin [Mass/Vol] 33.2 ng/mL 14.7 - 205.1 ng/mL [facility] FOLATE SERUMon 03-05-2022 Folate [Mass/Vol] 6.6 ng/mL >4.7 ng/mL [facility] Iron and Iron binding capaci ty panelon 03-05-2022 Iron [Mass/Vol] 49 ug/dL 41 - 186 ug/dL [facility] Iron binding capacity [Mass/Vol] 392 ug/dL High 232 - 386 ug/dL [facility] Iron/TIBC [Molar ratio] 12.5 % Low 15.0 - 57.0 % [facility] CBC W Auto Differential pane l (Bld)on 03-04-2022 Basophils (Bld) [#/Vol] 0.07 10*3/uL <0.11 k/uL [facility] Basophils/100 WBC (Bld) 0.6 % [facility] Differential cell count method Nom (Bld) Auto [facility] Eosinophils (Bld) [#/Vol] 0.19 10*3/uL <0.46 k/uL [facility] Eosinophils/100 WBC (Bld) 1.7 % [facility] Erythrocyte distribution width (RBC) [Ratio] 14.7 % 11.5 - 15.0 % [facility] Hematocrit (Bld) [Volume fraction] 40.0 % 36.0 - 46.0 % [facility] Hemoglobin (Bld) [Mass/Vol] 13.0 g/dL 11.5 - 15.5 g/dL [facility] Immature granulocytes (Bld) [#/Vol] 0.07 10*3/uL <0.10 k/uL [facility] Immature granulocytes/100 WBC (Bld) 0.6 % [facility] Lymphocytes (Bld) [#/Vol] 3.31 10*3/uL 1.00 - 4.00 k/uL [facility] Lymphocytes/100 WBC (Bld) 30.2 % [facility] MCH (RBC) [Entitic mass] 28.9 pg 26.0 - 34.0 pg [facility] MCHC (RBC) [Mass/Vol] 32.5 g/dL 30.5 - 36.0 g/dL [facility] MCV (RBC) [Entitic vol] 88.9 fL 80.0 - 100.0 fL [facility] Monocytes (Bld) [#/Vol] 0.70 10*3/uL <0.87 k/uL [facility] Monocytes/100 WBC (Bld) 6.4 % [facility] Neutrophils (Bld) [#/Vol] 6.63 10*3/uL 1.45 - 7.50 k/uL [facility] Neutrophils/100 WBC (Bld) 60.5 % [facility] Nucleated RBC (Bld) [#/Vol] <0.01 k/uL [facility] Nucleated RBC/100 WBC (Bld) [Ratio] 0.0 /100 WBC [facility] Platelet mean volume (Bld) [Entitic vol] 9.6 fL 9.0 - 12.7 fL [facility] Platelets (Bld) [#/Vol] 355 10*3/uL 150 - 400 k/uL [facility] RBC (Bld) [#/Vol] 4.50 10*6/uL 3.90 - 5.2 0 m/uL [facility] WBC (Bld) [#/Vol] 10.97 10*3/uL 3.70 - 11.00 k/uL [facility] Calcium.ionized [Moles/Vol]o n 03-04-2022 Calcium.ionized (Bld) [Mass/Vol] 1.26 mmol/L 1.08 - 1.30 mmol/L [facility] Calcium.ionized adjusted to pH 7.4 (Bld) [Moles/Vol] 1.25 mmol/L 1.08 - 1.30 mmol/L [facility] Comprehensive metabolic 2000 panelon 03-04-2022 Albumin [Mass/Vol] 4.3 g/dL 3.9 - 4.9 g/dL [facility] ALP [Catalytic activity/Vol] 70 U/L 34 - 123 U/L [facility] ALT [Catalytic activity/Vol] 26 U/L 7 - 38 U/L [facility] Anion gap [Moles/Vol] 7 mmol/L Low 9 - 18 mmol/L [facility] AST [Catalytic activity/Vol] 12 U/L Low 13 - 35 U/L [facility] Bilirubin [Mass/Vol] 0.2 mg/dL 0.2 - 1 .3 mg/dL [facility] Calcium [Mass/Vol] 9.3 mg/dL 8.5 - 10. 2 mg/dL [facility] Chloride [Moles/Vol] 103 mmol/L 97 - 10 5 mmol/L [facility] CO2 [Moles/Vol] 28 mmol/L 22 - 30 mmol/L [facility] Creatinine [Mass/Vol] 0.69 mg/dL 0.58 - 0.96 mg/dL [facility] Estimated Glomerular Filtration Rate 112 mL/min/1.73m >=60 mL/min/1.73 m [facility] Glucose [Mass/Vol] 100 mg/dL High 74 - 99 mg/dL [facility] Potassium [Moles/Vol] 3.9 mmol/L 3.7 - 5.1 mmol/L [facility] Protein [Mass/Vol] 7.0 g/dL 6.3 - 8.0 g/dL [facility] Sodium [Moles/Vol] 138 mmol/L 136 - 144 mmol/L [facility] Urea nitrogen [Mass/Vol] 12 mg/dL 7 - 21 mg/dL [facility] LD LACTATE DEHYDROon 022 LDH [Catalytic activity/Vol] 135 U/L 135 - 214 U/L [facility] PHOSPHORUS INORGANICon 03-04 Phosphate [Mass/Vol] 3.2 mg/dL 2.7 - 4 .8 mg/dL [facility] URIC ACID BLOODon 03-04-2022 Urate [Mass/Vol] 5.2 mg/dL 2.5 - 6.6 mg/dL [facility] IMMUNOGLOBULINS IGA/IGM/IGG/ IGE QUANTITAon 02-20-2022 Immunoglobulin A, Qn, Serum 189 mg/dL Normal 87-352 [facility] Comment on above: Result Comment: Perf ormed at: CB Performed By: #### Tye MELO THYLC #### [facility] [address] [address] [address] Manda York Immunoglobulin E, Total 10 IU/mL Normal 6-495 [facility] Comment on above: Result Comment: Perf ormed at: BN Performed By: #### LEANN PATRICKC #### [facility] [address] [address] [address] Manda York Immunoglobulin G, Qn, Serum 598 mg/dL Normal 586-1602 [facility] Comment on above: Result Comment: Perf ormed at: CB Performed By: #### LEANN PATRICKC #### [facility] [address] [address] [address] Manda York Immunoglobulin M, Qn, Serum 493 mg/dL Critically high 26-217 [facility] Comment on above: Result Comment: Perf ormed at: CB Performed By: #### Tye MELO THYLC #### [facility] [address] [place] [address] Dr. Manda York CHRISTIAN by IFAon 02-19-2022 Antinuclear Antibodies, IFA Negative Normal [facility] Comment on above: Result Comment: Nega tive <1:80 Borderline 1:80 Positive >1:80 ICAP nomenclature: AC-0 For more information about Hep-2 cell patterns use ANApatterns.org, the official website for the International Consensus on Antinuclear Antibody (CHRISTIAN) Patterns (ICAP). Performed By: #### LEANN PATRICKC #### [facility] [address] [place] [address] Dr. Manda York THYROID ANTIBODIESon Thyroglobulin Antibody <1.0 Normal 0.0-0.9 [facility] Comment on above: Result Comment: Thyr oglobulin Antibody measured by [employer] Performed By: #### F T4 #### [facility] [address] [place] [address] Dr. Manda York Thyroid Peroxidase (TPO) Ab <8 Normal 0-[address] [facility] Comment on above: Performed By: #### F T4 #### [facility] [address] [place] [address] Dr. Manda York PROTEIN ELECTROPHERESISon Albumin [Mass/Vol] 3.2 g/dL Normal 2.9-4.[address] [facility] Comment on above: Performed By: #### F T4 #### [facility] [address] [place] [address] Dr. Manda York Albumin/Globulin [Mass ratio] 1.0 {ratio} Normal 0.7-1.7 [facility] Comment on above: Performed By: #### F T4 #### [facility] [address] [place] [address] Dr. Manda York Jgqvm-4-Fwptjxxr 0.2 g/dL Normal 0.0-0.4 [facility] Comment on above: Performed By: #### F T4 #### [facility] [address] [place] [address] Dr. Manda York Ssxoq-3-Fptcysuh 0.9 g/dL Normal 0.4-1.[address] [facility] Comment on above: Performed By: #### F T4 #### [facility] [address] [place] [address] Dr. Manda York Beta Globulin 1.2 g/dL Normal 0.7-1.[address] [facility] Comment on above: Performed By: #### F T4 #### [facility] [address] [place] [address] Dr. Manda York Gamma Globulin 0.9 g/dL Normal 0.4-1.[address] [facility] Comment on above: Performed By: #### F T4 #### [facility] [address] [place] [address] Dr. Manda York Globulin (S) [Mass/Vol] 3.2 g/dL Normal 2.2-3.9 [facility] Comment on above: Performed By: #### F T4 #### [facility] [address] [place] [address] Dr. Manda York M-Jose De Jesus Not Observed Normal Not Observed [facility] Comment on above: Performed By: #### F T4 #### [facility] [address] [place] [address] Dr. Manda York PDF . Normal [facility] Comment on above: Performed By: #### F T4 #### [facility] [address] [place] [address] Dr. Manda York Please note: Comment Normal [facility] Comment on above: Result Comment: Prot ein electrophoresis scan will follow via computer, mail, or forming machine operator delivery. Performed By: #### F T4 #### [facility] [address] [place] [address] Dr. Manda York Protein [Mass/Vol] 6.4 g/dL Normal 6.0-8.5 [facility] Comment on above: Performed By: #### F T4 #### [facility] [address] [place] [address] Dr. Manda York SLE PROFILE Aon 02-16-2022 Anti-DNA (DS) Ab Qn 9 IU/mL Normal 0-[address] [facility] Comment on above: Result Comment: Nega tive <5 Equivocal 5 - 9 Positive >9 Performed By: #### S LUIGI MELO #### [facility] [address] [place] [address] Dr. Manda York Antichromatin Antibodies <0.2 Normal 0.0-0.[address] [facility] Comment on above: Performed By: #### S LEANN MELOC #### [facility] [address] [place] [address] Dr. Manda York RA Latex Turbid. <10.0 Normal <14.0 [facility] Comment on above: Performed By: #### S LEANN MELOC #### [facility] [address] [place] [address] Dr. Manda York SENIOR MANAGER ASSET PROTECTION Antibodies <0.2 Normal 0.0-0.9 [facility] Comment on above: Performed By: #### S LEANN MELOC #### [facility] [address] [place] [address] Dr. Manda York Sjogryaniv'tye Anti-SS-A <0.2 Normal 0.0-0.9 [facility] Comment on above: Performed By: #### S LEANN MELOC #### [facility] [address] [place] [address] Dr. Manda Solorzanoogryaniv'tye Anti-SS-B <0.2 Normal 0.0-0.9 [facility] Comment on above: Performed By: #### LUIGI PATRICK #### [facility] [address] [place] [address] Dr. Manda York Schneider Antibodies <0.2 Normal 0.0-0.9 [facility] Comment on above: Performed By: #### S LUIGI MELO #### [facility] [address] [place] [address] Dr. Manda York ANTISTREPTOLYSIN O AB (ASO)o n 02-15-2022 Antistreptolysin O Ab 49.6 IU/mL Normal 0.0-200.0 [facility] Comment on above: Performed By: #### A SOAB #### [facility] [address] [place] [address] Dr. Manda York MICROALBUMIN URINEon 022 Albumin, Urine <3.0 Normal Not Estab. [facility] Comment on above: Result Comment: Ve rified by repeat analysis Performed By: #### C BC #### [facility] [address] [place] [address] Dr. Manda York T4, T3U, FTI LABCORPon 02-15 Free Thyroxine Index 2.6 Normal 1.2-4.9 [facility] Comment on above: Performed By: #### S LUIGI MELO #### [facility] [address] [place] [address] Dr. Manda York T3 Uptake 26 % Normal 24-[address] [facility] Comment on above: Performed By: #### S LEANN MELOC #### [facility] [address] [place] [address] Dr. Manda York T4 [Mass/Vol] 9.9 ug/dL Normal 4.5-12.0 [facility] Comment on above: Performed By: #### S LEANN MELOC #### [facility] [address] [place] [address] Dr. Manda York CBC AUTO DIFFon 02-14-2022 BASO # 0.1 103/ul Normal 0.0-0.1 [facility] Comment on above: Performed By: #### U AMIC #### [facility] [address] [place] [address] Dr. Manda York Basophils/100 WBC (Bld) 0.6 % Normal 0.2-2.0 [facility] Comment on above: Performed By: #### U AMIC #### [facility] [address] [place] [address] Dr. Manda York EO # 0.3 103/ul Normal 0.0-0.7 [facility] Comment on above: Performed By: #### U AMIC #### [facility] [address] [place] [address] Dr. Manda York Eosinophils/100 WBC (Bld) 3.4 % Normal 0.9-7.0 [facility] Comment on above: Performed By: #### U AMIC #### [facility] [address] [place] [address] Dr. Manda York Erythrocyte distribution width (RBC) [Ratio] 14.6 % Normal 11.0-15.0 [facility] Comment on above: Performed By: #### U AMIC #### [facility] [address] [place] [address] Dr. Manda York Hematocrit (Bld) [Volume fraction] 39.1 % Normal 36.0-48.0 [facility] Comment on above: Performed By: #### U AMIC #### [facility] [address] [address] [address] Manda York Hemoglobin (Bld) [Mass/Vol] 12.4 g/dL Normal 12.0-16.0 [facility] Comment on above: Performed By: #### U AMIC #### [facility] [address] [address] [address] Manda York IG # 0.03 10e3/ul Normal 0.00-0.03 [facility] Comment on above: Performed By: #### U AMIC #### [facility] [address] [place] [address] Dr. Manda York IG % 0.3 % Normal 0.0-0.5 [facility] Comment on above: Performed By: #### U AMIC #### [facility] [address] [place] [address] Dr. Manda York LYMPH # 3.6 103/ul Normal 1.2-3.8 [facility] Comment on above: Performed By: #### U AMIC #### [facility] [address] [place] [address] Dr. Manda York Lymphocytes/100 WBC (Bld) 39.9 % Normal 20.5-60.0 [facility] Comment on above: Performed By: #### U AMIC #### [facility] [address] [place] [address] Dr. Manda York MANUAL DIFF REQ NO Normal [facility] Comment on above: Performed By: #### U AMIC #### [facility] [address] [place] [address] Dr. Manda York MCH (RBC) [Entitic mass] 28.4 pg Normal 26.7-34.0 [facility] Comment on above: Performed By: #### U AMIC #### [facility] [address] [place] [address] Dr. Manda York MCHC (RBC) [Mass/Vol] 31.7 g/dL Normal 29.9-35.2 [facility] Comment on above: Performed By: #### U AMIC #### [facility] [address] [address] [address] Manda York MCV (RBC) [Entitic vol] 89.7 fL Normal 81.0-99.0 [facility] Comment on above: Performed By: #### U AMIC #### [facility] [address] [address] [address] Manda York MONO # 0.7 103/ul Normal 0.3-0.8 [facility] Comment on above: Performed By: #### U AMIC #### [facility] [address] [address] [address] Manda York Monocytes/100 WBC (Bld) 7.3 % Normal 1.7-12.0 [facility] Comment on above: Performed By: #### U AMIC #### [facility] [address] [address] [address] Manda York NEUT # 4.4 103/ul Normal 1.4-6.5 [facility] Comment on above: Performed By: #### U AMIC #### [facility] [address] [place] [address] Dr. Manda York Neutrophils/100 WBC (Bld) 48.5 % Normal 43.0-75.0 [facility] Comment on above: Performed By: #### U AMIC #### [facility] [address] [address] [address] Manda York Platelet mean volume (Bld) [Entitic vol] 10.1 fL Normal 9.5-13.5 [facility] Comment on above: Performed By: #### U AMIC #### [facility] [address] [address] [address] Manad York PLT 310 103/ul Normal 150-[address] [facility] Comment on above: Performed By: #### U AMIC #### [facility] [address] [address] [address] Manda York RBC 4.36 106/ul Normal 4.20-5.40 [facility] Comment on above: Performed By: #### U AMIC #### [facility] [address] [address] [address] Manda York WBC 9.0 103/ul Normal 4.0-11.0 [facility] Comment on above: Performed By: #### U AMIC #### [facility] [address] [place] [address] Dr. Manda York CRPon 02-14-2022 CRP [Mass/Vol] mg/L Normal <=1.0 [facility] Comment on above: Performed By: #### U AMIC #### [facility] [address] [place] [address] Dr. Manda York CULTURE URINEon 02-14-2022 CULTURE URINE Culture Observations : LIGHT GROWTH OF MIXED GENITAL AMBER. NO POTENTIAL PATHOGENS SEEN. Normal [facility] Comment on above: Performed By: #### C BC #### [facility] [address] [place] [address] Dr. Manda York PROF 14(COMP METB)on 022 Albumin [Mass/Vol] 3.5 g/dL Normal 3.4-5.0 [facility] Comment on above: Performed By: #### U AMIC #### [facility] [address] [place] [address] Dr. Manda York Albumin/Globulin [Mass ratio] 1.0 {ratio} Normal [facility] Comment on above: Performed By: #### U AMIC #### [facility] [address] [place] [address] Dr. Manda York ALP [Catalytic activity/Vol] 71 U/L Normal 46-[address] [facility] Comment on above: Performed By: #### U AMIC #### [facility] [address] [place] [address] Dr. Manda York ALT [Catalytic activity/Vol] 46 U/L Normal 14-[address] [facility] Comment on above: Performed By: #### U AMIC #### [facility] [address] [place] [address] Dr. Manda York Anion gap [Moles/Vol] 11.6 mmol/L Normal [facility] Comment on above: Performed By: #### U AMIC #### [facility] [address] [address] [address] Manda York AST [Catalytic activity/Vol] 15 U/L Normal 15-37 [facility] Comment on above: Performed By: #### U AMIC #### [facility] [address] [address] [address] Manda York Bilirubin [Mass/Vol] 0.2 mg/dL Normal 0.2-1.0 [facility] Comment on above: Performed By: #### U AMIC #### [facility] [address] [address] [address] Manda York Calcium [Mass/Vol] 8.7 mg/dL Normal 8.5-10.1 [facility] Comment on above: Performed By: #### U AMIC #### [facility] [address] [address] [address] Manda York Chloride [Moles/Vol] 104 mmol/L Normal 98-107 [facility] Comment on above: Performed By: #### U AMIC #### [facility] [address] [address] [address] Manda York CO2 [Moles/Vol] 25.1 mmol/L Normal 21.0-32.0 [facility] Comment on above: Performed By: #### U AMIC #### [facility] [address] [address] [address] Manda York Creatinine [Mass/Vol] 0.80 mg/dL Normal 0.55-1.02 [facility] Comment on above: Performed By: #### U AMIC #### [facility] [address] [address] [address] Manad York EGFR-AF RUSSIAN >60 Normal >=[address] [facility] Comment on above: Performed By: #### U AMIC #### [facility] [address] [address] [address] Manda York EGFR-NON AF RUSSIAN >60 Normal >=60 [facility] Comment on above: Performed By: #### U AMIC #### [facility] [address] [address] [address] Manda York Globulin (S) [Mass/Vol] 3.6 g/dL Normal [facility] Comment on above: Performed By: #### U AMIC #### [facility] [address] [address] [address] Manda York Glucose [Mass/Vol] 92 mg/dL Normal 74-[address] [facility] Comment on above: Performed By: #### U AMIC #### [facility] [address] [address] [address] Manda York Potassium [Moles/Vol] 3.7 mmol/L Normal 3.5-5.1 [facility] Comment on above: Performed By: #### U AMIC #### [facility] [address] [place] [address] Dr. aMnda York Protein [Mass/Vol] 7.1 g/dL Normal 6.4-8.[address] [facility] Comment on above: Performed By: #### U AMIC #### [facility] [address] [address] [address] Manda York Sodium [Moles/Vol] 137 mmol/L Normal 136-145 [facility] Comment on above: Performed By: #### U AMIC #### [facility] [address] [place] [address] Dr. Manda York Urea nitrogen [Mass/Vol] 17.0 mg/dL Normal 7.0-18.0 [facility] Comment on above: Performed By: #### U AMIC #### [facility] [address] [address] [address] Manda York Urea nitrogen/Creatinine [Mass ratio] 21.2 mg/mg Normal [facility] Comment on above: Performed By: #### U AMIC #### [facility] [address] [address] [address] Manda York SED RATE [facility] 2021 SED RATE 40 mm/hr Critically high <=[address] [facility] Comment on above: Performed By: #### S EDR #### [facility] [address] [address] [address] Manda York TSHon 02-14-2022 TSH 1.155 uIU/mL Normal 0.358-3.[address] [facility] Comment on above: Performed By: #### U AMIC #### [facility] [address] [place] [address] Dr. Manda York UA RANDOM W/MICROSCOPICon BACTERIA NONE SEEN Normal NONE SEEN [facility] Comment on above: Performed By: #### U AMIC #### [facility] [address] [place] [address] Dr. Manda York Bilirubin Ql (U) Negative Normal NEGATIVE [facility] Comment on above: Performed By: #### U AMIC #### [facility] [address] [place] [address] Dr. Manda York CAST NONE SEEN Normal NONE SEEN [facility] Comment on above: Performed By: #### U AMIC #### [facility] [address] [place] [address] Dr. Manda York Clarity (U) CLEAR Normal CLEAR [facility] Comment on above: Performed By: #### U AMIC #### [facility] [address] [place] [address] Dr. Manda York Color (U) LT. YELLOW Normal YELLOW [facility] Comment on above: Performed By: #### U AMIC #### [facility] [address] [place] [address] Dr. Manda York Crystals LM Nom (Urine sed) NONE SEEN Normal NONE SEEN [facility] Comment on above: Performed By: #### U AMIC #### [facility] [address] [address] [address] Manda York Epithelial cells LM Ql (Urine sed) RARE Normal NONE SEEN /RARE [facility] Comment on above: Performed By: #### U AMIC #### [facility] [address] [place] [address] Dr. Manda York Glucose Ql (U) Negative Normal NEGATIVE [facility] Comment on above: Performed By: #### U AMIC #### [facility] [address] [address] [address] Manda York Hemoglobin Ql (U) Negative Normal NEGATIVE [facility] Comment on above: Performed By: #### U AMIC #### [facility] [address] [address] [address] Manda York Ketones Ql (U) Negative Normal NEGATIVE [facility] Comment on above: Performed By: #### U AMIC #### [facility] [address] [address] [address] Manda York LEUKOCYTES Negative Normal NEGATIVE [facility] Comment on above: Performed By: #### U AMIC #### [facility] [address] [place] [address] Dr. Manda York MUCOUS NONE SEEN Normal NONE SEEN [facility] Comment on above: Performed By: #### U AMIC #### [facility] [address] [place] [address] Dr. Manda York Nitrite Ql (U) Negative Normal NEGATIVE [facility] Comment on above: Performed By: #### U AMIC #### [facility] [address] [place] [address] Dr. Manda York pH (U) 6.0 [pH] Normal 5-9 [facility] Comment on above: Performed By: #### U AMIC #### [facility] [address] [place] [address] Dr. Manda York RBC NONE SEEN Abnormal 0-[address] [facility] Comment on above: Performed By: #### U AMIC #### [facility] [address] [place] [address] Dr. Manda York SPEC GRAVITY 1.005 Normal 1.005-<=1.0 25 [facility] Comment on above: Performed By: #### U AMIC #### [facility] [address] [place] [address] Dr. Manda York UA PROTEIN Negative Normal NEGATIVE/ TRACE [facility] Comment on above: Performed By: #### U AMIC #### [facility] [address] [place] [address] Dr. Manda York Urobilinogen Qn (U) 0.2 {Carmella'U}/dL Normal 0.2 - 1. 0 [facility] Comment on above: Performed By: #### U AMIC #### [facility] [address] [place] [address] Dr. Manda York WBC NONE SEEN Normal NONE SEEN [facility] Comment on above: Performed By: #### U AMIC #### [facility] [address] [place] [address] Dr. Manda York URIC ACID SERUMon 02-14-2022 Urate [Mass/Vol] 4.2 mg/dL Normal 2.6-6.0 [facility] Comment on above: Performed By: #### U AMIC #### [facility] [address] [place] [address] Dr. Manda York VITAMIN D 25 OHon 02-14-2022 VIT D 25-OH 22.4 ng/mL Normal [facility] Comment on above: Performed By: #### F T4 #### [facility] [address] [place] [address] Dr. Manda York VIT D RANGES SEE BELOW Normal [facility] Comment on above: Result Comment: <20 ng/mL Vit D deficient 20 - <30 ng/mL Vit D insufficient 30 - 100 ng/mL Vit D sufficient >100 ng/mL Potential Toxicity Performed By: #### F T4 #### [facility] [address] [place] [address] Dr. Manda York METANEPHRINES FRAC. QNT 24 H R URINEon 11-28-2021 Metanephrine, U,24hr Comment Normal 36-209 [facility] Comment on above: Result Comment: No t otal volume submitted. Unable to calculate 24 hour result. Performed By: #### S LUIGI MELO #### [facility] [address] [place] [address] Dr. Manda York Metanephrine, Ur 57 ug/L Normal Undefined [facility] Comment on above: Performed By: #### S LUIGI MELO #### [facility] [address] [place] [address] Dr. Manda York Normetanephr.,U,24h Comment Normal 131-612 [facility] Comment on above: Result Comment: No t otal volume submitted. Unable to calculate 24 hour result. Performed By: #### LEANN PATRICKC #### [facility] [address] [address] [address] Manda York Normetanephrine, Ur 116 ug/L Normal Undefined [facility] Comment on above: Performed By: #### LEANN PATRICK #### [facility] [address] [address] [address] Manda York METANEPHRINES PLASMA FREEon 11-27-2021 Metanephrine, Pl 22.1 pg/mL Normal 0.0-88.0 [facility] Comment on above: Performed By: #### LEANN PATRICK #### [facility] [address] [place] [address] Dr. Manda York Normetanephrine, Pl 50.7 pg/mL Normal 0.0-218.9 [facility] Comment on above: Performed By: #### LEANN PATRICK #### [facility] [address] [address] [address] Manda York CMV PLASMA PCRon 11-19-2021 CMV Quant DNA PCR (Plasma) Negative Normal Negative [facility] Comment on above: Result Comment: No C MV DNA detected. The quantitative range of this assay is 200 to 1 million IU/mL. Performed By: #### LEANN PATRICK #### [facility] [address] [place] [address] Dr. Manda York log10 CMV Qn DNA Pl UPTCAL Normal [facility] Comment on above: Result Comment: Unab le to calculate result since non-numeric result obtained for component test. Performed By: #### LEANN PATRICKC #### [facility] [address] [place] [address] Dr. Manda York CMV AB IGMon 11-18-2021 Cytomegalovirus (CMV) Ab, IgM 43.2 AU/mL Critically high 0.0-29.9 [facility] Comment on above: Result Comment: Nega tive <30.0 Equivocal 30.0 - 34.9 Positive >34.9 A positive result is generally indicative of acute infection, reactivation or persistent IgM production. Performed By: #### S LUIGI MELO #### [facility] [address] [place] [address] Dr. Manda York CMV AB, IGGon 11-18-2021 Cytomegalovirus (CMV) Ab, IgG >10.00 Critically high 0.00-0.59 [facility] Comment on above: Result Comment: Nega tive <0.60 Equivocal 0.60 - 0.69 Positive >0.69 Performed By: #### C MVIGG #### [facility] [address] [place] [address] Dr. Manda York CBC AUTO DIFFon 11-17-2021 BASO # 0.1 103/ul Normal 0.0-0.1 [facility] Comment on above: Performed By: #### C BC #### [facility] [address] [place] [address] Dr. Manda York Basophils/100 WBC (Bld) 0.6 % Normal 0.2-2.0 [facility] Comment on above: Performed By: #### C BC #### [facility] [address] [place] [address] Dr. Manda York EO # 0.2 103/ul Normal 0.0-0.7 [facility] Comment on above: Performed By: #### C BC #### [facility] [address] [place] [address] Dr. Manda York Eosinophils/100 WBC (Bld) 2.3 % Normal 0.9-7.0 [facility] Comment on above: Performed By: #### C BC #### [facility] [address] [place] [address] Dr. Manda York Erythrocyte distribution width (RBC) [Ratio] 14.2 % Normal 11.0-15.0 [facility] Comment on above: Performed By: #### C BC #### [facility] [address] [place] [address] Dr. Manda York Hematocrit (Bld) [Volume fraction] 40.2 % Normal 36.0-48.0 [facility] Comment on above: Performed By: #### C BC #### [facility] [address] [place] [address] Dr. Manda York Hemoglobin (Bld) [Mass/Vol] 12.8 g/dL Normal 12.0-16.0 [facility] Comment on above: Performed By: #### C BC #### [facility] [address] [place] [address] Dr. Manda Yokr IG # 0.02 10e3/ul Normal 0.00-0.03 [facility] Comment on above: Performed By: #### C BC #### [facility] [address] [place] [address] Dr. Manda York IG % 0.2 % Normal 0.0-0.5 [facility] Comment on above: Performed By: #### C BC #### [facility] [address] [place] [address] Dr. Manda York LYMPH # 2.5 103/ul Normal 1.2-3.[address] [facility] Comment on above: Performed By: #### C BC #### [facility] [address] [place] [address] Dr. Manda York Lymphocytes/100 WBC (Bld) 24.9 % Normal 20.5-60.0 [facility] Comment on above: Performed By: #### C BC #### [facility] [address] [place] [address] Dr. Manda York MANUAL DIFF REQ NO Normal [facility] Comment on above: Performed By: #### C BC #### [facility] [address] [place] [address] Dr. Manda York MCH (RBC) [Entitic mass] 27.9 pg Normal 26.7-34.0 [facility] Comment on above: Performed By: #### C BC #### [facility] [address] [place] [address] Dr. Manda York MCHC (RBC) [Mass/Vol] 31.8 g/dL Normal 29.9-35.2 [facility] Comment on above: Performed By: #### C BC #### [facility] [address] [address] [address] Manda York MCV (RBC) [Entitic vol] 87.6 fL Normal 81.0-99.0 [facility] Comment on above: Performed By: #### C BC #### [facility] [address] [address] [address] Manda York MONO # 0.6 103/ul Normal 0.3-0.8 [facility] Comment on above: Performed By: #### C BC #### [facility] [address] [place] [address] Dr. Manda York Monocytes/100 WBC (Bld) 6.3 % Normal 1.7-12.0 [facility] Comment on above: Performed By: #### C BC #### [facility] [address] [place] [address] Dr. Manda York NEUT # 6.5 103/ul Normal 1.4-6.5 [facility] Comment on above: Performed By: #### C BC #### [facility] [address] [place] [address] Dr. Manda York Neutrophils/100 WBC (Bld) 65.7 % Normal 43.0-75.0 [facility] Comment on above: Performed By: #### C BC #### [facility] [address] [place] [address] Dr. Manda York Platelet mean volume (Bld) [Entitic vol] 10.1 fL Normal 9.5-13.5 [facility] Comment on above: Performed By: #### C BC #### [facility] [address] [place] [address] Dr. Manda York PLT 304 103/ul Normal 150-[address] [facility] Comment on above: Performed By: #### C BC #### [facility] [address] [place] [address] Dr. Manda York RBC 4.59 106/ul Normal 4.20-5.40 [facility] Comment on above: Performed By: #### C BC #### [facility] [address] [place] [address] Dr. Manda York WBC 9.9 103/ul Normal 4.0-11.0 [facility] Comment on above: Performed By: #### C BC #### [facility] [address] [place] [address] Dr. Manda York PROF 14(COMP METB)on 022 Albumin [Mass/Vol] 3.7 g/dL Normal 3.4-5.0 [facility] Comment on above: Performed By: #### C BC #### [facility] [address] [place] [address] Dr. Manda York Albumin/Globulin [Mass ratio] 1.0 {ratio} Normal [facility] Comment on above: Performed By: #### C BC #### [facility] [address] [place] [address] Dr. Manda York ALP [Catalytic activity/Vol] 65 U/L Normal 46-[address] [facility] Comment on above: Performed By: #### C BC #### [facility] [address] [place] [address] Dr. Manda York ALT [Catalytic activity/Vol] 35 U/L Normal 14-59 [facility] Comment on above: Performed By: #### C BC #### [facility] [address] [place] [address] Dr. Manda York Anion gap [Moles/Vol] 13.0 mmol/L Normal [facility] Comment on above: Performed By: #### C BC #### [facility] [address] [place] [address] Dr. Manda York AST [Catalytic activity/Vol] 12 U/L Critically low 15-37 [facility] Comment on above: Performed By: #### C BC #### [facility] [address] [place] [address] Dr. Manda York Bilirubin [Mass/Vol] 0.2 mg/dL Normal 0.2-1.0 [facility] Comment on above: Performed By: #### C BC #### [facility] [address] [place] [address] Dr. Manda York Calcium [Mass/Vol] 8.7 mg/dL Normal 8.5-10.1 [facility] Comment on above: Performed By: #### C BC #### [facility] [address] [place] [address] Dr. Manda York Chloride [Moles/Vol] 104 mmol/L Normal 98-107 [facility] Comment on above: Performed By: #### C BC #### [facility] [address] [place] [address] Dr. Manda York CO2 [Moles/Vol] 24.9 mmol/L Normal 21.0-32.0 [facility] Comment on above: Performed By: #### C BC #### [facility] [address] [place] [address] Dr. Manda York Creatinine [Mass/Vol] 0.77 mg/dL Normal 0.55-1.02 [facility] Comment on above: Performed By: #### C BC #### [facility] [address] [place] [address] Dr. Manda York EGFR-AF RUSSIAN >=60 Normal >=60 [facility] Comment on above: Performed By: #### C BC #### [facility] [address] [place] [address] Dr. Manda York EGFR-NON AF RUSSIAN >=60 Normal >=60 [facility] Comment on above: Performed By: #### C BC #### [facility] [address] [place] [address] Dr. Manda York Globulin (S) [Mass/Vol] 3.8 g/dL Normal [facility] Comment on above: Performed By: #### C BC #### [facility] [address] [place] [address] Dr. Manda York Glucose [Mass/Vol] 110 mg/dL Critically high 74-106 [facility] Comment on above: Performed By: #### C BC #### [facility] [address] [place] [address] Dr. Manda York Potassium [Moles/Vol] 3.9 mmol/L Normal 3.5-5.1 [facility] Comment on above: Performed By: #### C BC #### [facility] [address] [place] [address] Dr. Manda York Protein [Mass/Vol] 7.5 g/dL Normal 6.4-8.2 [facility] Comment on above: Performed By: #### C BC #### [facility] [address] [place] [address] Dr. Manda York Sodium [Moles/Vol] 138 mmol/L Normal 136-145 [facility] Comment on above: Performed By: #### C BC #### [facility] [address] [place] [address] Dr. Manda York Urea nitrogen [Mass/Vol] 17.0 mg/dL Normal 7.0-18.0 [facility] Comment on above: Performed By: #### C BC #### [facility] [address] [place] [address] Dr. Manda York Urea nitrogen/Creatinine [Mass ratio] 22.1 mg/mg Normal [facility] Comment on above: Performed By: #### C BC #### [facility] [address] [place] [address] Dr. Manda York SED RATE [facility] 2021 SED RATE 45 mm/hr Critically high <=20 [facility] Comment on above: Performed By: #### F T4 #### [facility] [address] [place] [address] Dr. Manda York CHRISTIAN EIA W/REFLEX 5 BIOMARKER Son 10-06-2021 CHRISTIAN Direct Positive Abnormal Negative [facility] Comment on above: Performed By: #### C BC #### [facility] [address] [place] [address] Dr. Manda York Anti-DNA (DS) Ab Qn 10 IU/mL Critically high 0-9 [facility] Comment on above: Result Comment: Nega tive <5 Equivocal 5 - 9 Positive >9 Performed By: #### C BC #### [facility] [address] [place] [address] Dr. Manda York SENIOR MANAGER ASSET PROTECTION Antibodies <0.2 Normal 0.0-0.9 [facility] Comment on above: Performed By: #### C BC #### [facility] [address] [place], [place] [address] Dr. Manda York SEE BELOW: Comment Normal [facility] Comment on above: Result Comment: Auto [...] Sm (anti-Schneider) SLE 15 - 30% --------- SENIOR MANAGER ASSET PROTECTION Mixed Connective Tissue Disease 95% (U1 nRNP, SLE 30 - 50% anti-ribonucleoprotein) Polymyositis and/or Dermatomyositis 20% --------- Scl-70 (antiDNA Scleroderma (diffuse) 20 - 35% topoisomerase) Crest 13% --------- Felicita-1 Polymyositis and/or Dermatomyositis 20 - 40% --------- Centromere B Scleroderma - Crest variant 80% Performed By: #### C BC #### [facility] [address] [place] [address] Dr. Manda York Sjogren's Anti-SS-A <0.2 Normal 0.0-0.9 [facility] Comment on above: Performed By: #### C BC #### [facility] [address] [address] [address] Manda York Sjogren's Anti-SS-B <0.2 Normal 0.0-0.9 [facility] Comment on above: Performed By: #### C BC #### [facility] [address] [place] [address] Dr. Manda York Schneider Antibodies <0.2 Normal 0.0-0.9 [facility] Comment on above: Performed By: #### C BC #### [facility] [address] [place] [address] Dr. Manda York CMV PLASMA PCRon 10-06-2021 CMV Quant DNA PCR (Plasma) Negative Normal Negative [facility] Comment on above: Result Comment: No C MV DNA detected. The quantitative range of this assay is 200 to 1 million IU/mL. Performed By: #### C MVPL #### [facility] [address] [place] [address] Dr. Manda York log10 CMV Qn DNA Pl UPTCAL Normal [facility] Comment on above: Result Comment: Unab le to calculate result since non-numeric result obtained for component test. Performed By: #### C MVPL #### [facility] [address] [place] [address] Dr. Manda York CMV AB IGMon 2021 Cytomegalovirus (CMV) Ab, IgM 35.5 AU/mL Critically high 0.0-29.9 [facility] Comment on above: Result Comment: Nega tive <30.0 Equivocal 30.0 - 34.9 Positive >34.9 A positive result is generally indicative of acute infection, reactivation or persistent IgM production. Performed By: #### S LUIGI MELO #### [facility] [address] [place] [address] Dr. Manda York CMV AB, IGGon 2021 Cytomegalovirus (CMV) Ab, IgG 6.30 U/mL Critically high 0.00-0.59 [facility] Comment on above: Result Comment: Nega tive <0.60 Equivocal 0.60 - 0.69 Positive >0.69 Performed By: #### S LEANN MELOC #### [facility] [address] [place] [address] Dr. Manda York CBC AUTO DIFFon 10-03-2021 BASO # 0.1 103/ul Normal 0.0-0.1 [facility] Comment on above: Performed By: #### C BC #### [facility] [address] [address] [address] Manda York Basophils/100 WBC (Bld) 0.7 % Normal 0.2-2.[address] [facility] Comment on above: Performed By: #### C BC #### [facility] [address] [address] [address] Manda York EO # 0.2 103/ul Normal 0.0-0.[address] [facility] Comment on above: Performed By: #### C BC #### [facility] [address] [address] [address] Manda York Eosinophils/100 WBC (Bld) 2.0 % Normal 0.9-7.[address] [facility] Comment on above: Performed By: #### C BC #### [facility] [address] [place] [address] Dr. Manda York Erythrocyte distribution width (RBC) [Ratio] 14.4 % Normal 11.0-15.0 [facility] Comment on above: Performed By: #### C BC #### [facility] [address] [place] [address] Dr. Manda York Hematocrit (Bld) [Volume fraction] 37.2 % Normal 36.0-48.0 [facility] Comment on above: Performed By: #### C BC #### [facility] [address] [place] [address] Dr. Manda York Hemoglobin (Bld) [Mass/Vol] 12.3 g/dL Normal 12.0-16.[address] [facility] Comment on above: Performed By: #### C BC #### [facility] [address] [place] [address] Dr. Manda York IG # 0.02 10e3/ul Normal 0.00-0.[address] [facility] Comment on above: Performed By: #### C BC #### [facility] [address] [place] [address] Dr. Manda York IG % 0.2 % Normal 0.0-0.[address] [facility] Comment on above: Performed By: #### C BC #### [facility] [address] [place] [address] Dr. Manda York LYMPH # 2.1 103/ul Normal 1.2-3.[address] [facility] Comment on above: Performed By: #### C BC #### [facility] [address] [place] [address] Dr. Manda York Lymphocytes/100 WBC (Bld) 26.4 % Normal 20.5-60.0 [facility] Comment on above: Performed By: #### C BC #### [facility] [address] [place] [address] Dr. Manda York MANUAL DIFF REQ NO Normal [facility] Comment on above: Performed By: #### C BC #### [facility] [address] [place] [address] Dr. Manda York MCH (RBC) [Entitic mass] 29.2 pg Normal 26.7-34.0 [facility] Comment on above: Performed By: #### C BC #### [facility] [address] [place] [address] Dr. Manda York MCHC (RBC) [Mass/Vol] 33.1 g/dL Normal 29.9-35.[address] [facility] Comment on above: Performed By: #### C BC #### [facility] [address] [place] [address] Dr. Manda York MCV (RBC) [Entitic vol] 88.4 fL Normal 81.0-99.[address] [facility] Comment on above: Performed By: #### C BC #### [facility] [address] [place] [address] Dr. Manda York MONO # 0.5 103/ul Normal 0.3-0.[address] [facility] Comment on above: Performed By: #### C BC #### [facility] [address] [place] [address] Dr. Manda York Monocytes/100 WBC (Bld) 6.7 % Normal 1.7-12.[address] [facility] Comment on above: Performed By: #### C BC #### [facility] [address] [place] [address] Dr. Manda York NEUT # 5.2 103/ul Normal 1.4-6.5 [facility] Comment on above: Performed By: #### C BC #### [facility] [address] [place] [address] Dr. Manda York Neutrophils/100 WBC (Bld) 64.0 % Normal 43.0-75.0 [facility] Comment on above: Performed By: #### C BC #### [facility] [address] [place] [address] Dr. Manda York Platelet mean volume (Bld) [Entitic vol] 10.5 fL Normal 9.5-13.5 [facility] Comment on above: Performed By: #### C BC #### [facility] [address] [place] [address] Dr. Manda York PLT 265 103/ul Normal 150-[address] [facility] Comment on above: Performed By: #### C BC #### [facility] [address] [place] [address] Dr. Manda York RBC 4.21 106/ul Normal 4.20-5.[address] [facility] Comment on above: Performed By: #### C BC #### [facility] [address] [place] [address] Dr. Manda York WBC 8.1 103/ul Normal 4.0-11.0 [facility] Comment on above: Performed By: #### C BC #### [facility] [address] [place] [address] Dr. Manda York CRPon 10-03-2021 CRP [Mass/Vol] mg/L Normal <=1.0 [facility] Comment on above: Performed By: #### F T4 #### [facility] [address] [place] [address] Dr. Manda York SED RATE [facility] 2021 SED RATE 34 mm/hr Critically high <=[address] [facility] Comment on above: Performed By: #### C BC #### [facility] [address] [place] [address] Dr. Manda York CHLORIDE (POC)Ordered By: Am eer Kabour on 10-07-2020 Chloride [Moles/Vol] 106 mmol/L 98 - 10 7 mmol/L [employer] Phone: Catheterization and angiogra phy procedure details panelOrdered By: Jaren Holley on 10-07-2020 Cardiac Diagnostic R eport Demographics Patient TERA Torres Date of Study 10/07/2020 Name Date of 1980 Gender Female Age 40 year(s) Race Room [id number]^LEYDI^JAREN Height: 67 inch, 170.18 cm Number Corporate [id number] Weight: 234 pounds, 106.1 kg ID # Patient [id number] BSA: 2.16 m^2 BMI: 36.65 kg/m^2 Acct # MR # [id number] Performing Jaren Holley Physician Referring # Physician [...] Right coronary angiography. Contrast Material: - Isovue 90190 ml Fluoroscopy Time: Diagnostic: 2:12 minutes. Total: [...] assessed as CCS II according to the Peruvian clinical classification. Hemodynamics Condition: Baseline Room Air [...] ---------+ + !Aortic (more content not included)... [employer] Phone: Jr, pn Incoming C ardio Results From [facility] - 10/07/2020 10:37 AM EDT Cardiac Diagnostic Report Demographics Patient TERA Torres Date of Study 10/07/2020 Name Date of 1980 Gender Female Age 40 year(s) Race Room [id number]^LEYDI^JAREN Height: 67 inch, 170.18 cm Number Corporate [id number] Weight: 234 pounds, 106.1 kg ID # Patient [id number] BSA: 2.16 m^2 BMI: 36.65 kg/m^2 Acct # MR # [id number] Performing Jaren Holley Physician Referring # Physician [...] Right coronary angiography. Contrast Material: - Isovue 39258 ml Fluoroscopy Time: Diagnostic: 2:12 minutes. Total: [...] assessed as CCS II according to the [place]uvian clinical classification. Hemodynamics Condition: Baseline Room Air [...] + ---------+ + Shunts Oxygen Values O2 [id number] [employer] Phone: [employer] Phone: [employer] Phone: Creatinine W/GFR Point of Ca reOrdered By: Jaren Holley on 10-07-2020 Creatinine [Mass/Vol] 0.64 mg/dL 0.51 - 1.19 mg/dL [employer] Phone: GFR Non- >60 >60 mL/min [employer] Phone: GFR/1.73 sq M.predicted MDRD (S/P/Bld) [Vol rate/Area] mL/min/{1.73_m2} >60 mL/min [employer] Phone: GFR/1.73 sq M.predicted MDRD (S/P/Bld) [Vol rate/Area] [employer] Phone: Comment on above: Average GFR for 40-4 9 years old: 99 mL/min/1.73sq m Chronic Kidney Disease: <60 mL/min/1.73sq m Kidney failure: <15 mL/min/1.73sq m eGFR calculated using average adult body mass. Additional eGFR calculator available at: http://www.[employer]multiple_crcl_2012.htm Hemoglobin and hematocrit, b loodOrdered By: Jaren Holley on 10-07-2020 Hematocrit (Bld) [Volume fraction] 41 % 36 - 46 % [employer] Phone: Hemoglobin (Bld) [Mass/Vol] 14.0 g/dL 12.0 - 16.0 g/dL [employer] Phone: No Panel InformationOrdered By: Jaren Holley on 10-07-2020 [employer] Phone: POCT GlucoseOrdered By: Anu Holley on 10-07-2020 Glucose [Mass/Vol] 98 mg/dL 74 - 100 mg/dL [employer] Phone: POCT urine pregnancyOrdered By: Jaren Holley on 10-07-2020 Beta HCG ( test) Ql (U) Negative NEGATIVE [employer] Phone: Comment on above: Specimens with hCG l evels near the threshold of the test (25 mIU/mL) may give a negative or indeterminate result. In such cases, another test should be performed with a new specimen in 48-72 hours. If early is suspected clinically in this setting, correlation with quantitative serum b-hCG level is suggested. [employer] Phone: POTASSIUM (POC)Ordered By: Al Holley on 10-07-2020 Potassium [Moles/Vol] 3.8 mmol/L 3.5 - 4.5 mmol/L [employer] Phone: Platelet Counton 10-07-2020 Platelets (Bld) [#/Vol] 299 10*3/uL Normal 138-453 [facility] Comment on above: Performed By: #### P LT #### [employer] [address] [place] [id number] [employer] Analyst: Rick Serrano MD Platelet countOrdered By: Jae Holley on 10-07-2020 Platelets (Bld) [#/Vol] 299 10*3/uL [employer] Phone: [employer] Phone: SODIUM (POC)Ordered By: Anu Holley on 10-07-2020 Sodium [Moles/Vol] 141 mmol/L 138 - 146 mmol/L [employer] Phone: Coding Summary.on 01-12-2019 Coding Summary. CODING DATE: 019 FINAL [facility] STATUS: Home (Routine DC) PAYOR: Medicaid [...] Luz Judd Date Saved: 01/12/2019 10:25 am [facility] Coding Summary. 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 However, the narrative phrase printed from the coding software may appear abbreviated, or result in slightly different terminology. Revised Coded By: Luz Judd Revised Date Saved: 01/12/2019 10:25 am [facility] XR Chest 2 Viewson 9 XR Chest [...] Valenzuela M.D. Transcribed by: BILL Technologist: ZOILA [facility] Auto Diffon 01-11-2019 Basophils/100 WBC (Bld) 0.8 % Normal 0.0-2.0 [facility] Comment on above: Order Comment: Order Added by Discern Expert. Performed By: #### 1 [id number], [id number], [id number], [id number], [id number], [id number], 6762579, [id number], [id number], [id number] #### [facility] [address] [place] [address] Basophils/Leukocytes Auto (Bld) [Pure # fraction] 0.1 E9/L Normal 0.0-0.2 [facility] Comment on above: Order Comment: Order Added by Discern Expert. Performed By: #### 1 [id number], [id number], [id number], [id number], [id number], 5023946, 6834266, [id number], [id number], [id number] #### [facility] [address] [place] [address] Eosinophils/100 WBC (Bld) 1.9 % Normal 0.0-8.0 [facility] Comment on above: Order Comment: Order Added by Discern Expert. Performed By: #### 1 [id number], [id number], [id number], [id number], [id number], [id number], 5439305, 4320136, 9671572, [id number], [id number] #### [facility] [address] [place] [address] Eosinophils/Leukocyt es Auto (Bld) [Pure # fraction] 0.1 E9/L Normal 0.0-0.5 [facility] Comment on above: Order Comment: Order Added by Discern Expert. Performed By: #### 1 [id number], [id number], [id number], [id number], [id number], [id number], 4464392, 7702650, 8110910, [id number], [id number] #### [facility] [address] [place] [address] Lymphocytes/100 WBC (Bld) 28.0 % Normal 14.0-50.0 [facility] Comment on above: Order Comment: Order Added by Discern Expert. Performed By: #### 1 7959852, 0841109, 6087427, 5403162, 14462915, 3535140, 0739052, 0517109, 5897074, 79693276, 4459239 #### [facility] [address] [place] [address] Lymphocytes/Leukocyt es Auto (Bld) [Pure # fraction] 2.2 E9/L Normal 1.0-4.0 [facility] Comment on above: Order Comment: Order Added by Discern Expert. Performed By: #### 1 0528806, 8037517, 7861743, 9083043, 27074449, 7195821, 1597005, 4805403, 3555941, 13312585, 1356252 #### [facility] [address] [place] [address] Monocytes/100 WBC (Bld) 7.0 % Normal 4.0-14.0 [facility] Comment on above: Order Comment: Order Added by Discern Expert. Performed By: #### 1 1750285, 2201071, 1360012, 2692971, 80833262, 9211931, 4734785, 4471918, 7285058, 85155321, 7813314 #### [facility] [address] [place] [address] Monocytes/Leukocytes Auto (Bld) [Pure # fraction] 0.6 E9/L Normal 0.2-1.0 [facility] Comment on above: Order Comment: Order Added by Discern Expert. Performed By: #### 1 2680691, 8339920, 3858465, 1272660, 86937520, 7324943, 7863519, 4937405, 3866637, 16609300, 9269414 #### [facility] [address] [place] [address] Neutrophils/100 WBC (Bld) 62.3 % Normal 36.0-75.0 [facility] Comment on above: Order Comment: Order Added by Discern Expert. Performed By: #### 1 0976646, 5145761, 9768828, 1872807, 43404371, 8409122, 3341231, 7268619, 5084460, 32309015, 2065553 #### [facility] [address] [place] [address] Neutrophils/Leukocyt es Auto (Bld) [Pure # fraction] 4.9 E9/L Normal 2.0-7.5 [facility] Comment on above: Order Comment: Order Added by Discern Expert. Performed By: #### 1 8527688, 3873493, 5399406, 6572213, 89232132, 1711018, 5954781, 0648730, 3707702, 95991787, 1286146 #### [facility] [address] [place] [address] BMPon 01-11-2019 Creatinine [Mass/Vol] 0.7 mg/dL Normal 0.5-1.3 [facility] Comment on above: Performed By: #### 1 1244931, 7223708, 3608414, 9133637, 84476775, 0169406, 0371998, 5774791, 2985517, 31222959, 7009307 #### [facility] [address] [place] [address] Urea nitrogen [Mass/Vol] 11 mg/dL Normal 5-21 [facility] Comment on above: Performed By: #### 1 8947098, 5906965, 2204631, 2127008, 32163243, 5029241, 3235350, 3500211, 9967039, 65715461, 9903536 #### [facility] [address] [place] [address] Urea nitrogen/Creatinine [Mass ratio] 16 No Units Normal 10-20 [facility] Comment on above: Performed By: #### 1 2753562, 6927608, 3619000, 2922528, 78715720, 7711326, 8960845, 2907976, 0433983, 92198726, 3837241 #### [facility] [address] [place] [address] Anion gap [Moles/Vol] 14 mmol/L Normal 6-16 [facility] Comment on above: Performed By: #### 1 7434212, 2793698, 1819009, 7110441, 12544868, 4248254, 0733501, 9028825, 3660438, 99734667, 9914076 #### [facility] [address] [place] [address] Calcium [Mass/Vol] 8.9 mg/dL Normal 8.9-11.1 [facility] Comment on above: Performed By: #### 1 7743710, 8300854, 9510984, 7293135, 37284696, 2264960, 2963022, 0647034, 2070089, 71341190, 2416541 #### [facility] [address] [place] [address] Chloride [Moles/Vol] 107 mmol/L Normal 101-111 [facility] Comment on above: Performed By: #### 1 8213953, 6550782, 6397911, 9081667, 37721603, 5788108, 3137614, 3599664, 6576659, 44057575, 7025084 #### [facility] [address] [place] [address] CO2 [Moles/Vol] 22 mmol/L Normal 21-31 [facility] Comment on above: Performed By: #### 1 1641235, 9738243, 7835794, 3055381, 50029736, 7954035, 2990337, 5835385, 9781004, 38526211, 1359866 #### [facility] [address] [place] [address] Glucose [Mass/Vol] 122 mg/dL Normal 55-199 [facility] Comment on above: Result Comment: If t his glucose result represents a fasting glucose, interpretation should refer to the following reference range: 55-99 mg/dL Performed By: #### 1 8186851, 3681085, 2962158, 2060708, 45323778, 4398482, 2676114, 0451312, 3385168, 85971310, 7411028 #### [facility] [address] [place] [address] Potassium [Moles/Vol] 3.8 mmol/L Normal 3.5-5.3 [facility] Comment on above: Performed By: #### 1 6865897, 0230831, 0729693, 6578299, 92431318, 4234724, 2260733, 9740494, 4190558, 76436328, 4598449 #### [facility] [address] [place] [address] Sodium [Moles/Vol] 139 mmol/L Normal 135-145 [facility] Comment on above: Performed By: #### 1 1577855, 3584825, 4062718, 7778634, 00663644, 5079581, 7821432, 3188427, 7460937, 19026066, 9930602 #### [facility] [address] [place] [address] CBC w/ Auto Diffon 9 Erythrocyte distribution width (RBC) [Ratio] 14.0 % Normal 10.9-14.2 [facility] Comment on above: Performed By: #### 1 9046187, 5288663, 7597855, 5215714, 73177045, 1916006, 0636450, 3743413, 8222431, 53733258, 1274544 #### [facility] [address] [place] [address] Hematocrit (Bld) [Volume fraction] 39.9 % Normal 34.0-46.0 [facility] Comment on above: Performed By: #### 1 8444351, 3219083, 3191374, 3300576, 99294201, 1216452, 7869814, 5109632, 6434538, 48427106, 9025324 #### [facility] [address] [place] [address] Hemoglobin (Bld) [Mass/Vol] 13.5 g/dL Normal 12.0-16.0 [facility] Comment on above: Performed By: #### 1 6980694, 9368772, 9928804, 8921721, 72947681, 1796098, 1347377, 8110234, 1377799, 79775803, 3908197 #### [facility] [address] [place] [address] MCH (RBC) [Entitic mass] 29.4 pg Normal 27.0-34.0 [facility] Comment on above: Performed By: #### 1 6616552, 5449651, 7095920, 1535820, 78126976, 4948064, 7447404, 9178369, 3644419, 55183709, 9638085 #### [facility] [address] [place] [address] MCHC (RBC) [Mass/Vol] 33.7 g/dL Normal 33.3-35.7 [facility] Comment on above: Performed By: #### 1 7124529, 7993139, 8938628, 5329104, 58305474, 9552833, 5447582, 2534595, 1790176, 70997990, 4815841 #### [facility] [address] [place] [address] MCV (RBC) [Entitic vol] 87.4 fL Normal 80.0-100.0 [facility] Comment on above: Performed By: #### 1 1817755, 5303874, 4459342, 3073960, 17241177, 8111010, 8130365, 1175964, 5569463, 14753602, 4816583 #### [facility] [address] [place] [address] Platelet mean volume (Bld) [Entitic vol] 8.5 fL Normal 6.4-10.8 [facility] Comment on above: Performed By: #### 1 5719929, 4404297, 1289721, 4122271, 46990154, 7329820, 2793642, 4657174, 2802945, 48349015, 8270886 #### [facility] [address] [place] [address] Platelets (Bld) [#/Vol] 244.0 E9/L Normal 150.0-500.0 [facility] Comment on above: Performed By: #### 1 7900611, 0282415, 4868583, 8810434, 22091219, 8122939, 4812263, 6490148, 2512638, 63292336, 4170055 #### [facility] [address] [place] [address] RBC (Bld) [#/Vol] 4.6 E12/L Normal 4.3-5.9 [facility] Comment on above: Performed By: #### 1 0984815, 6342515, 5111239, 0448921, 61246149, 6961644, 4856530, 7606317, 0804393, 26698054, 0752061 #### [facility] [address] [place] [address] WBC corrected for nucl RBC Auto (Bld) [#/Vol] 7.9 E9/L Normal 4.0-11.0 [facility] Comment on above: Performed By: #### 1 4065433, 2006172, 6081303, 8651191, 18156440, 6052431, 2079806, 7649383, 3549175, 01491273, 2598901 #### [facility] [address] [place] [address] D-Dimeron 01-11-2019 Fibrin D-dimer FEU (PPP) [Mass/Vol] 265 ng/mL Normal 215-500 [facility] Comment on above: Result Comment: [...] infections Liver cirrhosis Performed By: #### 1 2698785, 9063425, 5051110, 1804357, 06962698, 8303259, 9468593, 9406016, 2907547, 73568537, 8723745 #### [facility] [address] [place] [address] ED Clinical Summaryon 2018 ED Clinical Summary (Inserted Image. Melissa ble to display) [address] [address] ED Clinical Summary Person Information Name: JONES HALEY [place] Age: 38 Years : 1980 12:00 AM Sex: Female Language: Andorran PCP: Charles Mitchell DO Marital Status: Single Phone: [phone] Visit Id: Visit Reason: Chest pain; CHEST [...] 01/11/2019 6:42 PM 01/11/2019 6:42 PM ADDRESS: [address] [place] [id number] PHYS DOC NOTES: MEDICAL INFORMATION: Prescriptions Given: PATIENT EDUCATION INFORMATION: Instructions: Smoking Cessation; Chest Pain (Nonspecific) Follow up: With: Address: When: [address] [address] Business (1) Within 2 to 3 days Comments: Return to ED if symptoms worsen DIAGNOSIS: 1:Chest pain Normal [facility] ED Note-Physicianon 01-12-20 19 ED [...] prescription medications Follow-up With When Contact Information Charles Mitchell Within 2 to [address] [place], [place] [phone]- Business (1) Additional Instructions: Return to ED [...] Lymph Auto: 28 % (01/11/19 16:46:00 EDT) Mcleod Auto: 7 % (01/11/19 16:46:00 EDT) Eos Auto: 1.9 % (01/11/19 16:46:00 EDT) Basophil Auto: 0.8 % (01/11/19 16:46:00 EDT) Neutro Absolute: 4.9 E9/L (01/11/19 16:46:00 EDT) Lymph Absolute: 2.2 E9/L (01/11/19 16:46:00 EDT) Mcleod Absolute: 0.6 E9/L (01/11/19 16:46:00 EDT) Eos [...] Results EC01/11/19: SINUS RHYTHM RATE 84, NORMAL KS AND QRS, NO ST ELEVATION OR DEPRSSION, NORMAL AXIS, NORMAL QTC NORMAL ECG Signed By: Orin Browne DO 01/11/2019 15:54:18 Normal [facility] Comment on above: Result Comment: [...] and skin patches. Some may be available ahnp-mew-lkdfooi and others require a prescription. ? Antidepressant [...] Document Reviewed: 08/18/2012 ExitCare? Patient Information ?2014 [facility]. This information is not intended to [...] Document Reviewed: 12/13/2008 ExitCare? Patient Information ?2015 [employer]. This information is not intended to replace advice given to you by your health care provider. Make sure you discuss any questions you have with your health care provider. Normal [facility] ED Patient Summaryon 019 ED Patient Summary (Inserted Image. Melissa ble to display) [place] [id number] Patient Discharge Instructions Person Information Name: JONES HALEY Age: 38 Years Arrival Date: 01/11/2019 3:44 PM Discharge Diagnosis: 1:Chest pain Primary Care Physician: Charles Mitchell DO Provider Information Primary Provider: Orin Browne DO Advanced Boring Machine Operator Helper:None The exam and treatment you received in the Emergency Department were for an urgent problem and are not intended as complete care. It is important that you follow up with a doctor, nurse practitioner, or physician?s assistant grocery store manager for ongoing care. If your symptoms become [...] Instructions: With: Address: When: Charles Mitchell [address] [place] [address] Business (1) Within 2 to 3 days [...] opioids can be used to help relieve wdvftmun-mo-jejfcm pain and are often prescribed following a [...] be struggling with addiction, tell your health career technical counselor and ask for guidance or call SAMHSA?S National Helpline at 8-001-470-WFPB. f Source: [place] Department of Health and Human Services/Center for Disease Control & Prevention [facility] Medications Given: Medication Dose Route No medications found. Medication Information: Medications to Continue with No Changes Other Medications metformin (metformin 500 mg ER Tab) 250 Milligram By Mouth 2 times a day. Comment: Pharmacy Information: Thank you for choosing [facility] Patient Education Materials: Smoking Cessation Quitting [...] and skin patches. Some may be available akkw-eue-rnwopit and others require a prescription. ? Antidepressant [...] Document Reviewed: 08/18/2012 ExitCare? Patient Information ?2014 [employer]. This information is not intended to replace [...] Document Reviewed: 12/13/2008 ExitCare? Patient Information ?2014 [employer]. This information is not intended to replace advice given to you by your health care provider. Make sure you discuss any questions you have with your health care provider. TERA Dorantes NICOLE B , have received the following patient education materials/instructions and have verbalized understanding: Patient Education Materials: Smoking Cessation; Chest Pain (Nonspecific) Follow-up Instructions: With: Address: When: [place] [phone] [facility] (1) Within 2 to 3 days Comments: Return to ED if symptoms worsen Prescriptions: Patient Signature Date Clinician/Nurse Signature Date 01/11/19 18:42:28 Normal [facility] Progress Note-Nurseon 2018 Progress Note-Nurse Pt explained dischar ge instructions and voiced understanding. Pt sts she will follow up with her PCP and denies any furthe questions at this time. Normal [facility] Troponin 0 Hr.on 01-11-2019 Troponin I.cardiac [Mass/Vol] ng/mL Normal <=0.03 [facility] Comment on above: Result Comment: New Troponin Assay 10/05/13 KRISHNA OR Cutoff value > or = 0.03 ng/mL in conjunction with clinical conditions of myocardial infarction. (www.escardio.org/guidelines) Performed By: #### 1 1269413, 8910081, 2047855, 2189658, 30640190, 5384965, 0576619, 6358363, 1319136, 69432454, 5564044 #### [facility] [address] [place] [address] eGFRon 01-11-2019 GFR/1.73 sq M predicted among blacks MDRD (S/P/Bld) [Vol rate/Area] mL/min/{1.73_m2} Normal >=59 [facility] Comment on above: Order Comment: Order added by Discern Expert. Result Comment: eGFR is race adjusted. AA=. Performed By: #### 1 0244068, 9973503, 6734418, 6608658, 02107896, 2015162, 8564602, 7544161, 1436061, 64517711, 8818470 #### [facility] [address] [place] [address] GFR/1.73 sq M predicted among non-blacks MDRD (S/P/Bld) [Vol rate/Area] mL/min/{1.73_m2} Normal >=59 [facility] Comment on above: Order Comment: Order added by Discern Expert. Result Comment: Surgery Manager anthony kidney disease could be indicated at eGFR's of less than 60 mL/min/1.73m2. Kidney failure is indicated at less than 15 mL/min/1.73m2. Performed By: #### 1 1540232, 7594631, 5150073, 0941010, 83811246, 2950057, 6392604, 9734106, 0729448, 04739110, 2732241 #### [facility] [address] [place] [address] SPINE, LUMBOSACRAL CMPLT(TOOTIE DING)on 12-05-2018 SPINE, LUMBOSACRAL CMPLT(BENDING) Patient Name: JONES HALEY STUDY: SPINE, LUMBOSACRAL; CMPLT(BENDING); 12/05/2018 1:47 pm INDICATION: LUMBAR XR. COMPARISON: None. ACCESSION NUMBER(S): [id number] ORDERING CLINICIAN: JUAN LUIS RICHARDSON FINDINGS: No lumbar spine fracture. Scattered small endplate osteophytes. Vertebral body and disc space heights are are maintained. 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 No spondylolisthesis. No instability on flexion or extension. IMPRESSION: Degenerative changes of the lumbar spine without instability. Electronically signed by: EARNESTINE MANUEL MD [facility] XR chest 2V*on 09-17-2018 XR chest 2V* [facility] [place] [address] [place] [address] XRay Report Signed Patient: Jones Haley MR#: [id number] : 1980 Acct:[id number] Age/Sex: 37 / F ADM Date: 09/17/18 Loc: XDUCLY Room: Type: [facility] Attending Dr: Bettina COREAS Ordering Provider: Bettina [...] Simin Nelson M.D.09/17/2018 2:04 PM Dictation Location: [facility] Transcribed By: [facility] 09/17/18 1404 Dictated By: Simin Nelson MD 09/17/18 1403 Signed By: 09/17/18 1404 [facility] Coding Summary.on 09-15-2018 Coding Summary. CODING DATE: 019 FINAL [facility] STATUS: Home (Routine DC) PAYOR: Medicaid [...] F17.210 Nicotine dependence, cigarettes, uncomplicated Z79.899 Other buttermaker continuous churn (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 However, the narrative phrase printed from the coding software may appear abbreviated, or result in slightly different terminology. Coded By: Luz Judd Date Saved: 09/15/2018 07:15 am Normal [facility] Auto Diffon 09-14-2018 Basophils/100 WBC (Bld) 0.6 % Normal 0.0-2.0 [facility] Comment on above: Order Comment: Order Added by Discern Expert. Performed By: #### 1 0560565, 2987371, 4685862, 8609646, 14949124, 2647234, 5058169, 3119677, 7671957, 40492154, 1203979 #### [facility] [address] [place] [address] Basophils/Leukocytes Auto (Bld) [Pure # fraction] 0.1 E9/L Normal 0.0-0.2 [facility] Comment on above: Order Comment: Order Added by Discern Expert. Performed By: #### 1 6983153, 3515067, 0061774, 6089320, 80708045, 1416889, 9117083, 2952461, 1044401, 12851067, 3058023 #### [facility] [address] [place] [address] Eosinophils/100 WBC (Bld) 2.2 % Normal 0.0-8.0 [facility] Comment on above: Order Comment: Order Added by Discern Expert. Performed By: #### 1 0761744, 0661761, 3046673, 5397356, 95897332, 2958122, 0973723, 9583634, 4922409, 84906223, 9204499 #### [facility] [address] [place] [address] Eosinophils/Leukocyt es Auto (Bld) [Pure # fraction] 0.2 E9/L Normal 0.0-0.5 [facility] Comment on above: Order Comment: Order Added by Discern Expert. Performed By: #### 1 2170158, 4099053, 9627572, 1203108, 44045809, 3451880, 3372001, 2497402, 9307260, 66703357, 7867054 #### [facility] [address] [place] [address] Lymphocytes/100 WBC (Bld) 30.6 % Normal 14.0-50.0 [facility] Comment on above: Order Comment: Order Added by Discern Expert. Performed By: #### 1 2212343, 2636275, 5291323, 9665331, 73360715, 6078689, 2396610, 2634859, 1293662, 37967391, 7131108 #### [facility] [address] [place] [address] Lymphocytes/Leukocyt es Auto (Bld) [Pure # fraction] 3.0 E9/L Normal 1.0-4.0 [facility] Comment on above: Order Comment: Order Added by Discern Expert. Performed By: #### 1 7370909, 9090471, 0163342, 7059339, 75245828, 9612287, 3180675, 5449413, 0882623, 06902299, 9367295 #### [facility] [address] [place] [address] Monocytes/100 WBC (Bld) 7.2 % Normal 4.0-14.0 [facility] Comment on above: Order Comment: Order Added by Discern Expert. Performed By: #### 1 3281483, 1011161, 3368549, 9827802, 06847416, 3682809, 2557838, 3117922, 8576687, 56812616, 7104968 #### [facility] [address] [place] [address] Monocytes/Leukocytes Auto (Bld) [Pure # fraction] 0.7 E9/L Normal 0.2-1.0 [facility] Comment on above: Order Comment: Order Added by Discern Expert. Performed By: #### 1 3259935, 0073129, 5318398, 7561355, 31034849, 4784961, 1741933, 8438143, 7399952, 23608634, 0777918 #### [facility] [address] [place] [address] Neutrophils/100 WBC (Bld) 59.4 % Normal 36.0-75.0 [facility] Comment on above: Order Comment: Order Added by Discern Expert. Performed By: #### 1 8255158, 7045193, 8088979, 5338848, 11077340, 6321524, 9138530, 6742213, 1614055, 34774897, 1808884 #### [facility] [address] [place] [address] Neutrophils/Leukocyt es Auto (Bld) [Pure # fraction] 5.9 E9/L Normal 2.0-7.5 [facility] Comment on above: Order Comment: Order Added by Discern Expert. Performed By: #### 1 6346374, 6427289, 0204628, 7690120, 51148594, 9533620, 1387267, 8477729, 7919505, 88438544, 0728740 #### [facility] [address] [place] [address] BMPon 09-14-2018 Creatinine [Mass/Vol] 0.6 mg/dL Normal 0.5-1.3 [facility] Comment on above: Performed By: #### 1 9143610, 9023452, 0784349, 8675140, 01565029, 3853377, 6236354, 9921329, 2862160, 64805208, 0404522 #### [facility] [address] [place] [address] Urea nitrogen [Mass/Vol] 15 mg/dL Normal 5-21 [facility] Comment on above: Performed By: #### 1 2512096, 1196235, 2103429, 9846256, 34963215, 7488401, 0258638, 1316890, 7683756, 55640472, 1166696 #### [facility] [address] [place] [address] Urea nitrogen/Creatinine [Mass ratio] 25 No Units High 10-20 [facility] Comment on above: Performed By: #### 1 3171604, 4993654, 9880985, 7291057, 64960832, 8531088, 6314610, 9539244, 5666697, 37012417, 9906955 #### [facility] [address] [place] [address] Anion gap [Moles/Vol] 13 mmol/L Normal 6-16 [facility] Comment on above: Performed By: #### 1 0734562, 0282715, 6678985, 9079166, 84699718, 8667348, 6367884, 6680513, 0238148, 75387946, 9073699 #### [facility] [address] [place] [address] Calcium [Mass/Vol] 9.5 mg/dL Normal 8.9-11.1 [facility] Comment on above: Performed By: #### 1 9721092, 6411040, 6428576, 0851599, 57700194, 4801272, 8477988, 5727845, 8308252, 10708181, 3396652 #### [facility] [address] [place] [address] Chloride [Moles/Vol] 103 mmol/L Normal 101-111 [facility] Comment on above: Performed By: #### 1 4729517, 5259120, 8126358, 4558798, 81982614, 3760351, 2356083, 7651748, 8768549, 31762426, 4930887 #### [facility] [address] [place] [address] CO2 [Moles/Vol] 24 mmol/L Normal 21-31 [facility] Comment on above: Performed By: #### 1 1708590, 0348145, 5888909, 5060940, 00302721, 0528555, 4156087, 5776884, 0671113, 94342488, 9776136 #### [facility] [address] [place] [address] Glucose [Mass/Vol] 102 mg/dL Normal 55-199 [facility] Comment on above: Result Comment: If t his glucose result represents a fasting glucose, interpretation should refer to the following reference range: 55-99 mg/dL Performed By: #### 1 6472406, 5904273, 8969002, 0731188, 18023956, 6257600, 4696878, 2574252, 8292384, 94831050, 8156792 #### [facility] [address] [place] [address] Potassium [Moles/Vol] 3.6 mmol/L Normal 3.5-5.3 [facility] Comment on above: Performed By: #### 1 1897362, 8134850, 8668335, 3881137, 14858159, 0072414, 0311015, 5985254, 6964924, 19403068, 6505017 #### [facility] [address] [place] [address] Sodium [Moles/Vol] 136 mmol/L Normal 135-145 [facility] Comment on above: Performed By: #### 1 0763282, 5288190, 7862271, 6778625, 62738131, 8673397, 2831198, 1167331, 6348934, 59857216, 4446612 #### [facility] [address] [place] [address] CBC w/ Auto Diffon Erythrocyte distribution width (RBC) [Ratio] 14.2 % Normal 10.9-14.2 [facility] Comment on above: Performed By: #### 1 3201302, 5211010, 5935327, 3459472, 94019034, 6746793, 3207879, 3360582, 0480242, 82391279, 6493244 #### [facility] [address] [place] [address] Hematocrit (Bld) [Volume fraction] 39.4 % Normal 34.0-46.0 [facility] Comment on above: Performed By: #### 1 5489604, 6456178, 3714723, 1114042, 24554952, 1186380, 9517134, 9207936, 8992123, 84742173, 4443787 #### [facility] [address] [place] [address] Hemoglobin (Bld) [Mass/Vol] 13.3 g/dL Normal 12.0-16.0 [facility] Comment on above: Performed By: #### 1 3339921, 3251895, 7263872, 1291358, 94619165, 5925798, 1843679, 2725886, 9504296, 43009662, 5970012 #### [facility] [address] [place] [address] MCH (RBC) [Entitic mass] 29.2 pg Normal 27.0-34.0 [facility] Comment on above: Performed By: #### 1 2897512, 7594472, 6978143, 3001100, 61614833, 5984586, 0705321, 4184034, 5423528, 31882128, 6334817 #### [facility] [address] [place] [address] MCHC (RBC) [Mass/Vol] 33.8 g/dL Normal 33.3-35.7 [facility] Comment on above: Performed By: #### 1 0910569, 2927743, 4997444, 0812391, 51255823, 3571036, 8798551, 9457987, 1725962, 97421927, 3731198 #### [facility] [address] [place] [address] MCV (RBC) [Entitic vol] 86.6 fL Normal 80.0-100.0 [facility] Comment on above: Performed By: #### 1 4579413, 0301685, 0151463, 8817228, 48527361, 7560240, 5275167, 5992366, 2571980, 56956717, 7427304 #### [facility] [address] [place] [address] Platelet mean volume (Bld) [Entitic vol] 8.8 fL Normal 6.4-10.8 [facility] Comment on above: Performed By: #### 1 6473633, 6880470, 0209443, 8972490, 85965154, 4433633, 1228507, 1258708, 7776868, 47834725, 6812063 #### [facility] [address] [place] [address] Platelets (Bld) [#/Vol] 307.0 E9/L Normal 150.0-500.0 [facility] Comment on above: Performed By: #### 1 2454471, 6182949, 2305661, 6185913, 59020249, 5841910, 4786483, 7362168, 3419446, 95428094, 4563652 #### [facility] [address] [place] [address] RBC (Bld) [#/Vol] 4.6 E12/L Normal 4.3-5.9 [facility] Comment on above: Performed By: #### 1 4693251, 9727201, 6676710, 0723304, 16330878, 8816443, 8091186, 6267388, 6774373, 42454162, 8825447 #### [facility] [address] [place] [address] WBC corrected for nucl RBC Auto (Bld) [#/Vol] 9.9 E9/L Normal 4.0-11.0 [facility] Comment on above: Performed By: #### 1 1801999, 0881616, 5829412, 4174431, 82202940, 7749744, 3830936, 6152207, 9162136, 64266498, 1792839 #### [facility] [address] [place] [address] CKon 09-14-2018 CK [Catalytic activity/Vol] 53 Int._Unit/L Normal 14-261 [facility] Comment on above: Performed By: #### 1 2619746, 9449734, 7022252, 5615054, 56850228, 2174759, 2848085, 6773913, 2519942, 32568688, 6208557 #### [facility] [address] [place] [address] ED Clinical Summaryon 2018 ED Clinical Summary (Inserted Image. Melissa ble to display) [address] [address] ED Clinical Summary Person Information Name: JONES HALEY [place] Age: 37 Years : 1980 12:00 AM Sex: Female Language: Andorran PCP: Charles Mitchell DO Marital Status: Single Phone: [phone] Visit Id: Visit Reason: Anxiety; Paraesthesia; NUMBNESS [...] 09/14/2018 12:17 AM 09/14/2018 12:17 AM ADDRESS: [address] [place] [address] [place] [phone] PHYS DOC NOTES: MEDICAL INFORMATION: Prescriptions Given: Prescription Display gabapentin (gabapentin 100 mg Cap) 100 mg = 1 cap(s), Oral, Daily, X 7 day(s), # 7 cap(s), Refills(s) 0, Pharmacy: [facility] gabapentin (gabapentin 100 mg Cap) 100 mg = 1 cap(s), Oral, Daily, X 7 day(s), # 7 cap(s), Refills(s) 0, Pharmacy: [facility]/pharmacy #6177 magnesium oxide (magnesium oxide 400 mg Tab) 400 mg = 1 tab(s), Oral, Daily, X 7 day(s), # 7 tab(s), Refills(s) 0, Pharmacy: [facility] magnesium oxide (magnesium oxide 400 mg Tab) 400 mg = 1 tab(s), Oral, Daily, X 7 day(s), # 7 tab(s), Refills(s) 0, Pharmacy: [facility]/pharmacy #6177 Home Meds Display metformin (metformin 500 mg ER Tab) 250 mg, Oral, BID, Refills(s) 0 PATIENT EDUCATION INFORMATION: Instructions: Paresthesia, Yxrq-hi-Snkw; Restless Legs Syndrome Follow up: With: Address: When: Sayda Kelley [address] [address] Business (1) Within 1 to 2 days Comments: neurologist you may also follow up with him With: Address: When: [place] [phone] [employer] (1) Within 1 to 2 days Comments: Return to ED if symptoms worsen DIAGNOSIS: 1:Restless leg syndrome Normal [facility] ED Note-Nursingon 09-14-2018 ED Note-Nursing Pt up to RR, gait steady. Normal [facility] ED Note-Nursing Aware of need for ur ine specimen, denies urge at present, states will notify when able to produce sample, will monitor. Normal [facility] ED Note-Physicianon 09-15-19 19 ED [...] day(s), # 7 cap(s), Refills(s) 0, Pharmacy: [facility]/pharmacy #6177 magnesium oxide, 400 mg = 1 tab(s), Oral, Daily, X 7 day(s), # 7 tab(s), Refills(s) 0, Pharmacy: [facility]/pharmacy #6177 Sodium Chloride 0.9% intravenous solution [...] Sayda Kelley Within 1 to [address] [address]- Business (1) Additional Instructions: neurologist you may also follow up with him Charles Mitchell Within 1 to 2 days [address] [place] [address]- Business (1) Additional Instructions: Return to ED if symptoms worsen Patient Education Paresthesia, Oplh-ei-Riwk Restless Legs Syndrome Problem List/Past Medical History [...] Lymph Auto: 30.6 % (09/13/18 23:03:00 EDT) Mcleod Auto: 7.2 % (09/13/18 23:03:00 EDT) Eos Auto: 2.2 % (09/13/18 23:03:00 EDT) Basophil Auto: 0.6 % (09/13/18 23:03:00 EDT) Neutro Absolute: 5.9 E9/L (09/13/18 23:03:00 EDT) Lymph Absolute: 3 E9/L (09/13/18 23:03:00 EDT) Mcleod Absolute: 0.7 E9/L (04/23/19 23:03:00 EDT) Eos Absolute: 0.2 E9/L (09/13/18 [...] Diagnostic Results No qualifying data available. Normal [facility] Comment on above: Result Comment: Elec tronically [...] Document Reviewed: 01/29/2012 ExitCare? Patient Information ?2015 [employer], [employer]. This information is not intended to replace [...] ? Drawing. ? Crawling. ? Worming. ? Goliad. ? Tingling. ? Pins and needles. ? [...] Document Reviewed: 08/06/2011 ExitCare? Patient Information ?2015 [employer], [employer]. This information is not intended to replace advice given to you by your health care provider. Make sure you discuss any questions you have with your health care provider. Normal [facility] ED Patient Summaryon 019 ED Patient Summary (Inserted Image. Melissa ble to display) [place] [id number] Patient Discharge Instructions Person Information Name: JONES HALEY Age: 37 Years [facility]: [id number] Arrival Date: 09/13/2018 10:16 PM Discharge Diagnosis: 1:Restless leg syndrome Primary Care Physician: Charles Mitchell DO Provider Information Primary Provider: Génesis Lozoya DO Advanced Boring Machine Operator Helper:None The exam and treatment you received in the Emergency Department were for an urgent problem and are not intended as complete care. It is important that you follow up with a doctor, nurse practitioner, or physician?s assistant grocery store manager for ongoing care. If your symptoms become worse or you do not improve as expected and you are unable to reach your usual health care provider, you should return to the Emergency Department. We are available 24 hours a day. JONES HALEY has been given the following list of patient education materials, prescriptions and follow-up instructions: Follow-up Instructions: With: Address: When: Sayda Kelley [facility], [address] [email or web address] [address] Business (1) Within 1 to 2 days Comments: neurologist you may also follow up with him With: Address: When: Charles Mitchell [address] [place] [phone] Business (1) Within 1 to 2 days Comments: Return to ED if symptoms worsen In the event that this physician does not participate in your insurance network, please consult with your insurance company to find a nearby participating provider. Patient Education Materials: Paresthesia, Pwjh-iu-Tvgx; Restless Legs Syndrome A MESSAGE TO ALL PATIENTS REGARDING OPIOIDS PRESCRIPTION OPIOIDS: WHAT YOU NEED TO KNOW Prescription opioids can be used to help relieve hlopuqqi-uq-rxhszb pain and are often prescribed following a [...] be struggling with addiction, tell your health career technical counselor and ask for guidance or call [employer]?S National Helpline at 1-259-128-EIPF. v Source: [place] Department of Health and Human Services/Center for Disease Control & Prevention [facility] Medications Given: Medication Dose Route Sodium Chloride 0.9% intravenous solution 1000.00 mL Initial Volume 1000.00 mL/hr IV Piggyback Left Mid Forearm Medication Information: New Medications [id number], [address], [place] [id number], [phone] gabapentin (gabapentin 100 mg Cap) 1 Capsules By Mouth every day for 7 Days. Refills: 0. magnesium oxide (magnesium oxide 400 mg Tab) 1 Tabs By Mouth every day for 7 Days. Refills: 0. [facility], [address] [place], [place] [id number], [phone] gabapentin (gabapentin 100 mg Cap) 1 Capsules By Mouth every day for 7 Days. Refills: 0. magnesium oxide (magnesium oxide 400 mg Tab) 1 Tabs By Mouth every day for 7 Days. Refills: 0. Medications to Continue with No Changes Other Medications metformin (metformin 500 mg ER Tab) 250 Milligram By Mouth 2 times a day. Comment: Pharmacy Information: Thank you for choosing [facility] Patient Education Materials: Paresthesia Paresthesia is [...] Document Reviewed: 01/29/2012 ExitCare? Patient Information ?2015 [employer]. This information is not intended to replace [...] ? Drawing. ? Crawling. ? Worming. ? Goliad. ? Tingling. ? Pins and needles. ? [...] Document Reviewed: 08/06/2011 ExitCare? Patient Information ?2014 [employer]. This information is not intended to replace advice given to you by your health care provider. Make sure you discuss any questions you have with your health care provider. TERA Dorantes NICOLE B , have received the following patient education materials/instructions and have verbalized understanding: Patient Education Materials: Paresthesia, Ctxy-vt-Utyp; Restless Legs Syndrome Follow-up Instructions: With: Address: When: Sayda Kelley [address] [address] Business (1) Within 1 to 2 days Comments: neurologist you may also follow up with him With: Address: When: [address] [address] Business (1) Within 1 to 2 days Comments: Return to ED if symptoms worsen Prescriptions: [gabapentin (gabapentin 100 mg Cap)] [gabapentin (gabapentin 100 mg Cap)] [magnesium oxide (magnesium oxide 400 mg Tab)] [magnesium oxide (magnesium oxide 400 mg Tab)] Patient Signature Date Clinician/Nurse Signature Date 09/14/18 00:21:38 Normal [facility] Panelon 09-14-2018 Bilirubin.direct [Mass/Vol] UTC Abnormal 0.1-0.9 [facility] Comment on above: Result Comment: Resu lt verified by Discern Rule. Performed result [facility] (Unable to Calculate) was sent as an Alpha code due the inability to calculate a valid numeric value. Performed By: #### 1 0956869, 1441800, 1791149, 5489613, 90497317, 9124093, 6929389, 7435735, 6127692, 27620013, 7139934 #### [facility] [address] [place] [address] Albumin [Mass/Vol] 1.1 g/dL Normal 1.1-2.2 [facility] Comment on above: Performed By: #### 1 1418465, 6358060, 3412535, 5732515, 08976555, 2249114, 4807043, 9517957, 9371308, 90048492, 8646685 #### [facility] [address] [place] [address] Albumin [Mass/Vol] 4.1 g/dL Normal 3.3-5.0 [facility] Comment on above: Performed By: #### 1 8659268, 5589433, 0126655, 0036838, 91048645, 7199534, 2756666, 4557198, 3423007, 95652268, 9546201 #### [facility] [address] [place] [address] ALP [Catalytic activity/Vol] 69 Int._Unit/L Normal 21-98 [facility] Comment on above: Performed By: #### 1 2252090, 5803046, 0395914, 0070276, 14801756, 0812726, 9979565, 6132671, 0352886, 78765325, 0461277 #### [facility] [address] [place] [address] ALT No additional P-5'-P [Catalytic activity/Vol] 27 Int._Unit/L Normal 6-46 [facility] Comment on above: Performed By: #### 1 4123018, 5136721, 0123994, 6283893, 52210253, 1221520, 1408144, 2596688, 2840388, 28572287, 2838732 #### [facility] [address] [place] [address] AST [Catalytic activity/Vol] 16 Int._Unit/L Normal 5-43 [facility] Comment on above: Performed By: #### 1 6388957, 6594905, 4213872, 8036503, 52124850, 9353582, 6350400, 1875327, 6155768, 26799291, 8407224 #### [facility] [address] [place] [address] Bilirubin [Mass/Vol] 0.5 mg/dL Normal 0.0-1.1 [facility] Comment on above: Performed By: #### 1 4342964, 7562229, 6372405, 0556350, 10737942, 6602588, 7155929, 9009162, 3243015, 72499026, 1553834 #### [facility] [address] [place] [address] Bilirubin.direct [Mass/Vol] mg/dL Normal 0.1-0.4 [facility] Comment on above: Performed By: #### 1 8141531, 5843935, 1089491, 2776774, 15886341, 4331157, 9825616, 7632573, 4699132, 28231008, 7663511 #### [facility] [address] [place] [address] Globulin (S) [Mass/Vol] 3.7 g/dL Normal 1.4-4.0 [facility] Comment on above: Performed By: #### 1 2969225, 4115516, 2631067, 1426197, 32730051, 3241447, 7085696, 4985149, 4484656, 20109848, 5639981 #### [facility] [address] [place] [address] Protein [Mass/Vol] 7.8 g/dL Normal 6.0-7.8 [facility] Comment on above: Performed By: #### 1 3907344, 2852879, 0372684, 0885505, 06454701, 1878013, 3308798, 9176175, 1513654, 43663850, 7493710 #### [facility] [address] [place] [address] Magnesiumon 09-14-2018 Magnesium [Mass/Vol] 1.9 mg/dL Normal 1.3-2.4 [facility] Comment on above: Performed By: #### 1 9233460, 1839612, 0006070, 4828870, 20662475, 2850875, 6752207, 5914577, 9519369, 26989964, 8249493 #### [facility] [address] [place] [address] Myoglobinon 09-14-2018 Myoglobin [Mass/Vol] 9 ng/mL Normal <=69 [facility] Comment on above: Performed By: #### 1 9052404, 4396940, 5110313, 3860109, 45593171, 0438004, 6530134, 4558566, 6116957, 26510106, 4247943 #### [facility] [address] [place] [address] PT & PTTon 09-14-2018 aPTT Coag (PPP) [Time] 34.5 second(s) Normal 25.1-36.5 [facility] Comment on above: Result Comment: Hepa rin therapeutic range (represented by Anti-Factor Xa activity of 0.2 - 0.4 U/mL) corresponds to PTT of 56.6 - 109.0 sec. Performed By: #### 1 7285957, 2432092, 8818419, 8408357, 63461302, 0783983, 4771500, 5861806, 3447160, 80275792, 8733787 #### [facility] [address] [place] [address] INR Coag (PPP) [Relative time] 1.0 {INR} [facility] Comment on above: Result Comment: INR results are specifically intended to assess patients stabilized on long-term Anticoagulation therapy suggested INR?s ?Less Intensive Anticoagulation? 2.0 ? 3.0 Conventional Range 3.0 ? 4.5 Performed By: #### 1 2955361, 8437805, 4483271, 7519768, 60126599, 0295290, 7740175, 2346377, 1678484, 41481598, 2308432 #### [facility] [address] [place] [address] PT Coag (PPP) [Time] 11.2 second(s) Normal 10.2-12.9 [facility] Comment on above: Performed By: #### 1 6426568, 2370333, 0425178, 8735451, 11466220, 5565191, 6801530, 8652399, 2300938, 24260788, 4515883 #### [facility] [address] [place] [address] Phosphoruson 09-14-2018 Phosphate [Mass/Vol] 3.8 mg/dL Normal 1.9-4.6 [facility] Comment on above: Performed By: #### 1 0782393, 9283499, 4221370, 6539539, 49901847, 5429875, 3870829, 5000544, 4334356, 88000998, 4728935 #### [facility] [address] [place] [address] Troponin 0 Hr.on 09-14-2018 Troponin I.cardiac [Mass/Vol] ng/mL Normal <=0.03 [facility] Comment on above: Result Comment: New Troponin Assay 10/05/13 KR[place] OR Cutoff value > or = 0.03 ng/mL in conjunction with clinical conditions of myocardial infarction. ([email or web address].org/guidelines) Performed By: #### 1 0720049, 0070848, 6397204, 2180259, 77370448, 2665427, 3207422, 8573923, 6351397, 62135353, 2663628 #### [facility] [address] [place] [address] UA With Cult Reflexon 2018 Bacteria LM Ql (Urine sed) TRACE Normal Trace [facility] Comment on above: Performed By: #### 1 9559307, 8632261, 3563207, 5614950, 53428922, 0603805, 5651304, 2216631, 0230771, 30597498, 5818687 #### [facility] [address] [place] [address] Bilirubin Ql (U) Negative Normal Negative [facility] Comment on above: Performed By: #### 1 2085366, 2685629, 1277257, 5544220, 58685287, 6090435, 6912150, 5259458, 9006457, 26302051, 3977306 #### [facility] [address] [place] [address] Clarity (U) CLEAR Normal Clear [facility] Comment on above: Performed By: #### 1 1651001, 6496278, 2277581, 3005757, 08681956, 6266078, 9564362, 1413237, 3700721, 11098312, 5237132 #### [facility] [address] [place] [address] Color (U) YELLOW Normal Yellow [facility] Comment on above: Performed By: #### 1 5592932, 0522947, 6592079, 6930228, 04703174, 2263023, 0348318, 0466673, 9678138, 97119177, 6046646 #### [facility] [address] [place] [address] Epithelial cells.squamous LM.HPF (Urine sed) [#/Area] 0-2 Normal 0-2 [facility] Comment on above: Performed By: #### 1 6715118, 9349756, 2966872, 1651300, 71663711, 1633586, 4963202, 9848352, 2441659, 86319490, 6209611 #### [facility] [address] [place] [address] Glucose Test strip (U) [Mass/Vol] Negative Normal Negative [facility] Comment on above: Performed By: #### 1 6274971, 7748449, 7862614, 6287749, 42608311, 2180829, 0248295, 5060185, 6218665, 15168445, 4548866 #### [facility] [address] [place] [address] Hemoglobin Ql (U) Negative Normal Negative [facility] Comment on above: Performed By: #### 1 8190093, 3462447, 5150110, 9806145, 36025903, 8139305, 9012810, 5023650, 5277106, 64257355, 1774814 #### [facility] [address] [place] [address] Ketones (U) [Mass/Vol] Negative Normal Negative [facility] Comment on above: Performed By: #### 1 7849331, 1327418, 2482237, 2351555, 42197894, 4770790, 3993144, 0797219, 1579466, 09417012, 6093917 #### [facility] [address] [place] [address] [place].plasma/Lithi um.RBC (Bld) [Mass ratio] 0-3 Normal 0-3 [facility] Comment on above: Performed By: #### 1 0061951, 3675342, 6790947, 5694324, 96033696, 1549527, 4826720, 5339941, 4924948, 94278611, 4184873 #### [facility] [address] [place] [address] Mucus Ql (Urine sed) TRACE Normal Fish [facility] Comment on above: Performed By: #### 1 9185643, 4588818, 6968327, 6430826, 01650424, 4488402, 1294829, 7330021, 8267050, 70697275, 3881746 #### [facility] [address] [place] [address] Nitrite Ql (U) Negative Normal Negative [facility] Comment on above: Performed By: #### 1 8245530, 6072076, 5234574, 7093205, 88392833, 6994247, 1616136, 9172489, 1983411, 89303685, 1898506 #### [facility] [address] [place] [address] pH (U) 6.0 [pH] 5.0-9.0 [facility] Comment on above: Performed By: #### 1 4539971, 1082446, 9664861, 0881606, 31294317, 3899668, 2898301, 9670692, 2867315, 15128919, 7451575 #### [facility] [address] [place] [address] Protein (U) [Mass/Vol] Negative Normal Negative [facility] Comment on above: Performed By: #### 1 1227398, 0985875, 1055254, 2872204, 09594876, 9243412, 7458052, 7043377, 3956291, 96782240, 5381700 #### [facility] [address] [place] [address] Specific gravity (U) [Rel density] 1.010 1.005-1.030 [facility] Comment on above: Performed By: #### 1 7976421, 0436390, 9655772, 5744827, 80162818, 3427779, 8040728, 1755364, 8726913, 88762002, 6348137 #### [facility] [address] [place] [address] UA Spec Desc Clean Catch Normal [facility] Comment on above: Performed By: #### 1 2078270, 7278503, 9234070, 4104490, 71173269, 9161062, 4008147, 1697744, 2351235, 74782936, 7082493 #### [facility] [address] [place] [address] Urobilinogen Qn (U) 0.2 {Carmella'U}/dL Normal 0.0-1.0 [facility] Comment on above: Performed By: #### 1 3184244, 4763334, 5761562, 1337816, 29450293, 2580093, 3241141, 5515670, 0439313, 18921785, 3268916 #### [facility] [address] [place] [address] WBC Auto Ql (U) Negative Normal Negative [facility] Comment on above: Performed By: #### 1 3299050, 3876392, 6633049, 7330418, 51528171, 1472749, 9703246, 0557809, 7192817, 26821570, 1023669 #### [facility] [address] [place] [address] WBC LM.HPF (Urine sed) [#/Area] 0-5 Normal 0-5 [facility] Comment on above: Performed By: #### 1 3250054, 3163194, 2594432, 2967245, 94320774, 5311343, 7835554, 5290358, 1570986, 62942927, 4367057 #### [facility] [address] [place] [address] XR Chest Single Viewon 09-14 XR Chest [...] M.D. Transcribed by: minoo Technologist: AP Normal [facility] XR FOOT LEFT (MIN 3 VIEWS)on 09-14-2018 XR FOOT LEFT (MIN 3 VIEWS) Radiology exam is complete. No Radiologist dictation. Please follow up with ordering provider. Final result Normal [facility] XR FOOT RIGHT (MIN 3 VIEWS)o n 09-14-2018 XR FOOT RIGHT (MIN 3 VIEWS) Radiology exam is complete. No Radiologist dictation. Please follow up with ordering provider. Final result Normal [facility] eGFRon 09-14-2018 GFR/1.73 sq M predicted among blacks MDRD (S/P/Bld) [Vol rate/Area] mL/min/{1.73_m2} Normal >=59 [facility] Comment on above: Order Comment: Order added by Discern Expert. Result Comment: eGFR is race adjusted. AA=. Performed By: #### 1 4956862, 5651620, 7879997, 3717370, 07395094, [id number], [id number], [id number] #### [facility] [address] [place] [address] GFR/1.73 sq M predicted among non-blacks MDRD (S/P/Bld) [Vol rate/Area] mL/min/{1.73_m2} Normal >=59 [facility] Comment on above: Order Comment: Order added by Discern Expert. Result Comment: Surgery Manager anthony kidney disease could be indicated at eGFR's of less than 60 mL/min/1.73m2. Kidney failure is indicated at less than 15 mL/min/1.73m2. Performed By: #### 1 [id number] #### [facility] [address] [place] [address] Vital Signs Date Time Vital Sign Value Performing Clinician Facility 07-13-2023 11:49-0500 Body temperature 97.5 [degF] [employer] Work Phone: [facility] 07-13-2023 11:49-0500 Diastolic blood pressure 74 mm[Hg] Ma Sand Work Phone: [facility] 07-13-2023 11:49-0500 Heart rate 83 /min Ma Yueqing [employer] Work Phone: [facility] 07-13-2023 11:49-0500 Respiratory rate 18 /min [employer] Work Phone: [facility] 07-13-2023 11:49-0500 SaO2% (BldA) [Mass fraction] 96 % Cele Marshall Work Phone: [facility] 07-13-2023 11:49-0500 Systolic blood pressure 109 mm[Hg] Cele Marshall Work Phone: [facility] 07-13-2023 10:01-0500 Diastolic blood pressure 65 mm[Hg] Lois Holm MD Work Phone: [facility] 07-13-2023 10:01-0500 Systolic blood pressure 105 mm[Hg] Lois Holm MD Work Phone: [facility] 07-13-2023 09:41-0500 Body height 170.2 cm Lois Holm MD Work Phone: [facility] 07-13-2023 09:41-0500 Body mass index (BMI) [Ratio] 43.85 kg/m2 Lois Holm MD Work Phone: [facility] 07-13-2023 09:41-0500 Body weight 127.01 kg Lois Holm MD Work Phone: [facility] 07-13-2023 09:41-0500 Heart rate 71 /min Lois Holm MD Work Phone: [facility] 07-06-2023 14:48-0500 Body mass index (BMI) [Ratio] 41.81 kg/m2 Juan Luis Richardson MD Work Phone: [facility] 07-06-2023 14:48-0500 Body weight 119.3 kg Juan Luis Richardson MD Work Phone: [facility] 06-09-2023 08:45-0500 Body height 170.2 cm Michelle TABOR Work Phone: [facility] 06-09-2023 08:45-0500 Body mass index (BMI) [Ratio] 44.48 kg/m2 Michelle TABOR Work Phone: [facility] 06-09-2023 08:45-0500 Body weight 128.82 kg Michelle Britton SPA ASSOCIATE-AIR DRILL OPERATOR Work Phone: [facility] 06-09-2023 08:45-0500 Diastolic blood pressure 82 mm[Hg] Michelle Britton SPA ASSOCIATE-AIR DRILL OPERATOR Work Phone: [facility] 06-09-2023 08:45-0500 Heart rate 80 /min Michelle Britton SPA ASSOCIATE-AIR DRILL OPERATOR Work Phone: [facility] 06-09-2023 08:45-0500 Systolic blood pressure 146 mm[Hg] Michelle Britton SPA ASSOCIATE-AIR DRILL OPERATOR Work Phone: [facility] 05-26-2023 17:17-0500 Body weight 123.83 kg Christie Phan MD Work Phone: [facility] 04-26-2023 14:42-0500 Body weight 125.19 kg Christie Phan MD Work Phone: [facility] 03-19-2023 11:16-0400 Body temperature 97.7 [degF] Ma Sand Work Phone: [facility] 03-19-2023 11:16-0400 Diastolic blood pressure 54 mm[Hg] Ma Sand Work Phone: [facility] 03-19-2023 11:16-0400 Heart rate 75 /min Ma Sand Work Phone: [facility] 03-19-2023 11:16-0400 Respiratory rate 16 /min Ma Sand Work Phone: [facility] 03-19-2023 11:16-0400 SaO2% (BldA) [Mass fraction] 96 % Ma Sand Work Phone: [facility] 03-19-2023 11:16-0400 Systolic blood pressure 111 mm[Hg] Ma Sand Work Phone: [facility] 02-19-2023 10:56-0400 Body height 170.2 cm Jose Najera MD Work Phone: [facility] 02-19-2023 10:56-0400 Body temperature 97.39 [degF] Jose Najera MD Work Phone: [facility] 02-19-2023 10:56-0400 Body weight 120.75 kg Jose Najera MD Work Phone: [facility] 02-19-2023 10:56-0400 Diastolic blood pressure 69 mm[Hg] Jose Najera MD Work Phone: [facility] 02-19-2023 10:56-0400 Heart rate 110 /min Jose Najera MD Work Phone: [facility] 02-19-2023 10:56-0400 Respiratory rate 16 /min Jose Najera MD Work Phone: [facility] 02-19-2023 10:56-0400 SaO2% (BldA) [Mass fraction] 96 % Jose Najera MD Work Phone: [facility] 02-19-2023 10:56-0400 Systolic blood pressure 132 mm[Hg] Jose Najera MD Work Phone: [facility] 01-22-2023 12:09-0400 Diastolic blood pressure 76 mm[Hg] Ma Sand Work Phone: [facility] 01-22-2023 12:09-0400 Systolic blood pressure 107 mm[Hg] Ma Sand Work Phone: [facility] 01-22-2023 12:08-0400 Body temperature 97.59 [degF] Ma Sand Work Phone: [facility] 01-22-2023 12:08-0400 Heart rate 102 /min Ma Sand Work Phone: [facility] 01-22-2023 12:08-0400 Respiratory rate 16 /min Ma Sand Work Phone: [facility] 01-22-2023 12:08-0400 SaO2% (BldA) [Mass fraction] 97 % Ma Sand Work Phone: [facility] 11-19-2022 11:00-0400 Body temperature 97.2 [degF] Ma Sand Work Phone: [facility] 11-19-2022 11:00-0400 Diastolic blood pressure 54 mm[Hg] Ma Sand Work Phone: [facility] 11-19-2022 11:00-0400 Heart rate 98 /min Ma Sand Work Phone: [facility] 11-19-2022 11:00-0400 Respiratory rate 16 /min Ma Sand Work Phone: [facility] 11-19-2022 11:00-0400 SaO2% (BldA) [Mass fraction] 98 % Ma Sand Work Phone: [facility] 11-19-2022 11:00-0400 Systolic blood pressure 126 mm[Hg] Ma Sand Work Phone: [facility] 10-22-2022 11:51-0400 Body height 170.2 cm Ma Sand Work Phone: [facility] 10-22-2022 11:51-0400 Body weight 120.66 kg Ma Sand Work Phone: [facility] 10-22-2022 11:51-0400 Respiratory rate 16 /min Ma Sand Work Phone: [facility] 10-22-2022 10:50-0400 Body height 170.2 cm Jose Najera MD Work Phone: [facility] 10-22-2022 10:50-0400 Body temperature 97 [degF] Jose Najera MD Work Phone: [facility] 10-22-2022 10:50-0400 Body weight 120.75 kg Jose Najera MD Work Phone: [facility] 10-22-2022 10:50-0400 Diastolic blood pressure 55 mm[Hg] Jose Najera MD Work Phone: [facility] 10-22-2022 10:50-0400 Heart rate 78 /min Jose Najera MD Work Phone: [facility] 10-22-2022 10:50-0400 Respiratory rate 16 /min Jose Najera MD Work Phone: [facility] 10-22-2022 10:50-0400 SaO2% (BldA) [Mass fraction] 98 % Jose Najera MD Work Phone: [facility] 10-22-2022 10:50-0400 Systolic blood pressure 132 mm[Hg] Jose Najera MD Work Phone: [facility] 09-24-2022 10:22-0400 Body height 170.2 cm Ma Sand Work Phone: [facility] 09-24-2022 10:22-0400 Body temperature 97 [degF] Ma Sand Work Phone: [facility] 09-24-2022 10:22-0400 Body weight 120.2 kg Ma Sand Work Phone: [facility] 09-24-2022 10:22-0400 Diastolic blood pressure 81 mm[Hg] Ma Sand Work Phone: [facility] 09-24-2022 10:22-0400 Heart rate 77 /min Ma Sand Work Phone: [facility] 09-24-2022 10:22-0400 Respiratory rate 16 /min Ma Sand Work Phone: [facility] 09-24-2022 10:22-0400 SaO2% (BldA) [Mass fraction] 97 % Ma Sand Work Phone: [facility] 09-24-2022 10:22-0400 Systolic blood pressure 116 mm[Hg] Ma Sand Work Phone: [facility] 09-07-2022 14:03-0400 Body weight 120.2 kg Christie Phan MD Work Phone: [facility] 08-27-2022 09:45-0400 Body height 170.2 cm Wilmer Driver APRN.AIR DRILL OPERATOR Work Phone: [facility] 08-27-2022 09:45-0400 Body temperature 97.7 [degF] Wilmer Driver SPA ASSOCIATE.AIR DRILL OPERATOR Work Phone: [facility] 08-27-2022 09:45-0400 Body weight 118.66 kg Wilmer Driver APRN.AIR DRILL OPERATOR Work Phone: [facility] 08-27-2022 09:45-0400 Diastolic blood pressure 55 mm[Hg] Wilmer Driver APRN.AIR DRILL OPERATOR Work Phone: [facility] 08-27-2022 09:45-0400 Heart rate 63 /min Wilmer Driver APRN.AIR DRILL OPERATOR Work Phone: [facility] 08-27-2022 09:45-0400 Respiratory rate 16 /min Wilmer Driver APRN.AIR DRILL OPERATOR Work Phone: [facility] 08-27-2022 09:45-0400 SaO2% (BldA) [Mass fraction] 96 % Wilmer Driver APRN.AIR DRILL OPERATOR Work Phone: [facility] 08-27-2022 09:45-0400 Systolic blood pressure 117 mm[Hg] Wilmer Driver APRN.AIR DRILL OPERATOR Work Phone: [facility] 05-20-2022 13:28-0500 Body height 170.2 cm Jose Najera MD Work Phone: [facility] 05-20-2022 13:28-0500 Body temperature 97.7 [degF] Jose Najera MD Work Phone: [facility] 05-20-2022 13:28-0500 Diastolic blood pressure 70 mm[Hg] Jose Najera MD Work Phone: [facility] 05-20-2022 13:28-0500 Heart rate 93 /min Jose Najera MD Work Phone: [facility] 05-20-2022 13:28-0500 Respiratory rate 16 /min Jose Najera MD Work Phone: [facility] 05-20-2022 13:28-0500 SaO2% (BldA) [Mass fraction] 97 % Jose Najera MD Work Phone: [facility] 05-20-2022 13:28-0500 Systolic blood pressure 127 mm[Hg] Jose Najera MD Work Phone: [facility] 03-18-2022 10:49-0400 Body height 170.2 cm Jose Najera MD Work Phone: [facility] 03-18-2022 10:49-0400 Body temperature 97.81 [degF] Jose Najera MD Work Phone: [facility] 03-18-2022 10:49-0400 Body weight 113.4 kg Jose Najera MD Work Phone: [facility] 03-18-2022 10:49-0400 Diastolic blood pressure 49 mm[Hg] Jose Najera MD Work Phone: [facility] 03-18-2022 10:49-0400 Heart rate 86 /min Jose Najera MD Work Phone: [facility] 03-18-2022 10:49-0400 Respiratory rate 16 /min Jose Najera MD Work Phone: [facility] 03-18-2022 10:49-0400 SaO2% (BldA) [Mass fraction] 98 % Jose Najera MD Work Phone: [facility] 03-18-2022 10:49-0400 Systolic blood pressure 145 mm[Hg] Jose Najera MD Work Phone: [facility] 03-09-2022 11:41-0400 Body height 170.2 cm Christie Phan MD Work Phone: [facility] 03-09-2022 11:41-0400 Body weight 112.49 kg Christie Phan MD Work Phone: [facility] 03-09-2022 11:41-0400 Diastolic blood pressure 100 mm[Hg] Christie Phan MD Work Phone: [facility] 03-09-2022 11:41-0400 Systolic blood pressure 158 mm[Hg] Christie Phan MD Work Phone: [facility] 03-04-2022 10:39-0400 Body height 170.2 cm Jose Najera MD Work Phone: [facility] 03-04-2022 10:39-0400 Body temperature 97.5 [degF] Jose Najera MD Work Phone: [facility] 03-04-2022 10:39-0400 Body weight 112.76 kg Jose Najera MD Work Phone: [facility] 03-04-2022 10:39-0400 Diastolic blood pressure 48 mm[Hg] Jose Najera MD Work Phone: [facility] 03-04-2022 10:39-0400 Heart rate 79 /min Jose Najera MD Work Phone: [facility] 03-04-2022 10:39-0400 Respiratory rate 16 /min Jose Najera MD Work Phone: [facility] 03-04-2022 10:39-0400 SaO2% (BldA) [Mass fraction] 99 % Jose Najera MD Work Phone: [facility] 03-04-2022 10:39-0400 Systolic blood pressure 132 mm[Hg] Jose Najera MD Work Phone: [facility] 11-26-2021 16:00-0400 Body height 168.91 cm Mirela Kelsey Other [employer] Other 11-26-2021 16:00-0400 Body mass index (BMI) [Ratio] 37.68 kg/m2 Mirela Kelsey Other [employer] Other 11-26-2021 16:00-0400 Body temperature 98.4 [degF] Mirela Kelsey Other [employer] Other 11-26-2021 16:00-0400 Body weight 107.5 kg Mirela Kelsey Other [employer] Other 11-26-2021 16:00-0400 Diastolic blood pressure 61 mm[Hg] Mirela Kelsey Other [employer] Other 11-26-2021 16:00-0400 Systolic blood pressure 115 mm[Hg] Mirela Kelsey Other [employer] Other 10-24-2021 08:18-0400 Body weight 108.86 kg Lynne Ni MD Work Phone: [facility] 10-24-2021 08:18-0400 Diastolic blood pressure 42 mm[Hg] Lynne Ni MD Work Phone: [facility] 10-24-2021 08:18-0400 Heart rate 72 /min Lynne Ni MD Work Phone: [facility] 10-24-2021 08:18-0400 Systolic blood pressure 106 mm[Hg] Lynne Ni MD Work Phone: [facility] 10-15-2021 15:45-0400 Body height 168.91 cm Mirela Kelsey Other [employer] Other 10-15-2021 15:45-0400 Body mass index (BMI) [Ratio] 38.31 kg/m2 Mirela Kelsey Other [employer] Other 10-15-2021 15:45-0400 Body temperature 98.1 [degF] Mirela Kelsey Other [employer] Other 10-15-2021 15:45-0400 Body weight 109.32 kg Mirela Kelsey Other [employer] Other 10-15-2021 15:45-0400 Diastolic blood pressure 60 mm[Hg] Mirela Kelsey Other [employer] Other 10-15-2021 15:45-0400 Systolic blood pressure 114 mm[Hg] Mirela Kelsey Other [employer] Other 09-11-2021 15:15-0400 Body height 168.91 cm Mirela Kelsey Other [employer] Other 09-11-2021 15:15-0400 Body mass index (BMI) [Ratio] 37.99 kg/m2 Mirela Kelsey Other [employer] Other 09-11-2021 15:15-0400 Body temperature 97.9 [degF] Mirela Kelsey Other [employer] Other 09-11-2021 15:15-0400 Body weight 108.41 kg Mirela Kelsey Other [employer] Other 09-11-2021 15:15-0400 Diastolic blood pressure 83 mm[Hg] Mirela Kelsey Other [employer] Other 09-11-2021 15:15-0400 Systolic blood pressure 144 mm[Hg] Mirela Buffy Other [employer] Other 10-07-2020 12:45-0400 Diastolic blood pressure 78 mm[Hg] [employer] Phone: 10-07-2020 12:45-0400 Heart rate 68 /min [employer] Phone: 10-07-2020 12:45-0400 SaO2% (BldA) [Mass fraction] 99 % [employer] Phone: 10-07-2020 12:45-0400 Systolic blood pressure 112 mm[Hg] [employer] Phone: 10-07-2020 10:45-0400 Respiratory rate 22 /min [employer] Phone: 10-07-2020 09:01-0400 Body height 170.2 cm [employer] Phone: 10-07-2020 09:01-0400 Body mass index (BMI) [Ratio] 36.65 kg/m2 [employer] Phone: 10-07-2020 09:01-0400 Body temperature 97.81 [degF] [employer] Phone: 10-07-2020 09:01-0400 Body weight 106.14 kg [employer] Phone: Encounters Encounter Date Encounter Type Care Provider Facility Start: 07-15-2023 End: 07-15-2023 ambulatory BERNABE ENGLISH Not Available Start: 07-13-2023 End: 07-13-2023 ambulatory Aidee Quintanilla [facility] Start: 07-13-2023 End: 07-13-2023 Nursing evaluation of patient and report Cele Marshall Work Phone: Hematology/Oncology Comment on above: 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); Elevated sed rate SPP Inflammatory Con ditions - Medication Refill (Benlysta ) Start: 07-13-2023 End: 07-13-2023 Office outpatient new 45 minutes Lois Holm MD Work Phone: [facility] Comment on above: Shortness of breath (Primary Dx); Paroxysmal supraventricular tachycardia; PAC (premature atrial contraction); Current smoker; Systemic lupus erythematosus, unspecified SLE type, unspecified organ involvement status (CMS/HCC); Palpitations; Obstructive sleep apnea syndrome; Morbid obesity (CMS/HCC); Bilateral lower extremity edema Start: 07-06-2023 End: 07-06-2023 ambulatory JUAN LUIS RICHARDSON Not Available Start: 07-06-2023 End: 07-06-2023 Office outpatient visit 25 minutes Juan Luis Richardson MD Work Phone: [facility] Comment on above: Autoimmune disease ( CMS/HCC) (Primary Dx); Autonomic dysfunction; Lumbosacral radiculopathy; Bilateral leg weakness Start: 07-05-2023 Chart abstracting Juan Luis ramirez MD Work Phone: [facility] Start: 06-10-2023 End: 06-10-2023 ambulatory MADELAINE Batista [place] Facility:[facility] Start: 06-09-2023 End: 06-09-2023 ambulatory [facility] Start: 06-09-2023 End: 06-09-2023 Office outpatient new 60 minutes [facility] [employer]PA ASSOCIATE-AIR DRILL OPERATOR Work Phone: [facility] Comment on above: Irregular heart rate (Primary Dx); Essential hypertension; Autonomic dysfunction; Obstructive sleep apnea syndrome; Primary hypertension Start: 06-03-2023 End: 06-03-2023 ambulatory MADELAINE FERRIS Facility:[facility] Start: 06-01-2023 End: 06-01-2023 ambulatory MADELAINE M Cristina Facility:[facility] Start: 06-01-2023 End: 06-01-2023 ambulatory SHARRON ROGERS Not Available Start: 05-26-2023 End: 05-26-2023 ambulatory MADELAINE Batista [place] Facility:[facility] Start: 05-26-2023 End: 05-26-2023 Office [...] Available Start: 04-16-2023 End: 04-16-2023 ambulatory MADELAINE Batista Cristina Facility:[facility] Start: 04-16-2023 End: 04-16-2023 Nursing evaluation of patient and report Cele Marshall Work Phone: Hematology/Oncology Comment on above: 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); Elevated sed rate Start: 04-09-2023 End: 04-09-2023 ambulatory MADELAINE M Cristina Facility:[facility] Start: 03-19-2023 End: 03-19-2023 [facility] Start: 03-19-2023 End: 03-19-2023 Nursing evaluation of patient and report Cele Marshall Work Phone: Hematology/Oncology Comment on above: 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); Elevated sed rate Start: 03-16-2023 Chart abstracting [facility] Work Phone: Neurology Comment on above: CMN Start: 03-11-2023 End: 03-11-2023 [facility] Facility:[facility] Start: 03-11-2023 End: 03-11-2023 Nursing evaluation of patient and report Nurse Morgan Fu Work Phone: Rheumatology Comment on above: Systemic lupus eryth ematosus, unspecified SLE type, unspecified organ involvement status (HCC) (Primary Dx) Start: 03-03-2023 End: 03-03-2023 [facility] Facility:[facility] Start: 03-01-2023 Telephone encounter Lynne shaw MD Work Phone: Rheumatology Comment on above: Results (Eye Exam) Start: 02-19-2023 End: 02-19-2023 [facility] Facility:[facility] Start: 02-19-2023 End: 02-19-2023 Nursing [...] above: Refill Request Start: 02-11-2023 End: 02-11-2023 [facility] Facility:[facility] Start: 02-04-2023 End: 02-04-2023 ambulatory [...] deficiency; Elevated sed rate; Bilateral wrist pain; MCC 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; Steroid-induced osteoporosis; 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 Start: 02-04-2023 Patient encounter procedure Clinton Schroeder (Pharmacist) [facility] Comment on above: SPP Inflammatory Con ditions - Treatment Referral (Benlysta); Insurance Authorization ([place] submission pending) Start: 02-04-2023 Telephone encounter Lynne shaw MD Work Phone: Rheumatology Comment on above: Appointment; Orders; Medication Authorization Start: 02-04-2023 End: 02-04-2023 ambulatory LYNNE TSAI Facility:[facility] Start: 02-04-2023 End: 02-04-2023 Telemedicine consultation with patient Lynne Ni MD Work Phone: [facility] Start: 01-28-2023 Refill Christie Hays Work Phone: Integrated Medicine Comment on above: Refill Request Start: 01-24-2023 Telephone encounter Lynne shaw MD Work Phone: Rheumatology Comment on above: Results Start: 01-22-2023 End: 01-22-2023 ambulatory MADELAINE FERRIS Facility:[facility] Start: 01-22-2023 End: 01-22-2023 Nursing evaluation of patient and report Ny Nurse Dre Marshall Work Phone: Hematology/Oncology Comment [...] with patient Misty Nelson MD Work Phone: [facility] Start: 12-29-2022 End: 12-29-2022 ambulatory MADELAINE FERRIS Facility:[facility] Start: 12-24-2022 Refill Christie Hays Work Phone: [facility] Comment on above: Refill Request Start: 12-18-2022 Telephone encounter Lidia Argueta RN Work Phone: Hematology/Oncology Comment on above: Care Coordination (a ppointment) Start: 12-17-2022 End: 12-18-2022 ambulatory WILMER VILLA Facility:[facility] Start: 12-17-2022 End: 12-18-2022 ambulatory Wilmer Driver SPA ASSOCIATE.AIR DRILL OPERATOR Work Phone: Hematology/Oncology Comment on above: 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); Chronic fatigue and malaise Start: 12-17-2022 End: 12-18-2022 Telemedicine consultation with patient Wilmer Driver SPA ASSOCIATE.AIR DRILL OPERATOR Work Phone: [facility] Start: 12-16-2022 Telephone [...] Start: 11-19-2022 End: 11-19-2022 ambulatory MADELAINE FERRIS Facility:[facility] Start: 11-19-2022 End: 11-19-2022 Nursing evaluation of patient and report Ma Nurse Dre Marshall Work Phone: Hematology/Oncology Comment on above: 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); Elevated sed rate Start: 10-29-2022 End: 10-29-2022 ambulatory CHRISTIE PHAN Facility:[facility] Start: 10-22-2022 End: 10-22-2022 ambulatory MADELAINE FERRIS Facility:[facility] Start: 10-22-2022 End: 10-22-2022 Nursing [...] Start: 10-15-2022 End: 10-15-2022 ambulatory MADELAINE FERRIS Facility:[facility] Start: 09-24-2022 End: 09-25-2022 ambulatory MICKY PARNELL . Facility: Start: 09-24-2022 End: 09-24-2022 ambulatory MADELAINE FERRIS Facility:[facility] Start: 09-24-2022 End: 09-24-2022 Nursing evaluation of patient and report Cele Marshall Work Phone: Hematology/Oncology Comment on above: 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); Elevated sed rate Start: 09-10-2022 End: 09-10-[address] MADELAINE FERRIS . Facility: Start: 09-08-2022 Telephone encounter Angelia [facility] Comment on above: Compliance Adherence Start: 09-07-2022 End: 09-07-2022 ambulatory CHRISTIE PHAN Facility:[facility] Start: 09-07-2022 End: 09-07-2022 Office [...] 08-27-2022 Nursing evaluation of patient and report Ma Nurse Erickson Joanna Work Phone: Hematology/Oncology Comment on above: 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); Elevated sed rate Start: 08-27-2022 End: 08-27-2022 ambulatory Wilmer Driver APRN.AIR DRILL OPERATOR Work Phone: Hematology/Oncology Comment on above: 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); Elevated sed rate; High total serum IgM; Chronic fatigue and malaise; JOSE RAFAEL (obstructive sleep apnea) Start: 08-27-2022 End: 08-27-2022 Patient encounter procedure Wilmer Driver APRN.AIR DRILL OPERATOR Work Phone: [facility] Start: 08-19-2022 Telephone encounter Lynne shaw MD Work Phone: Rheumatology Comment on above: Results Start: 08-18-2022 End: 08-18-2022 ambulatory MADELAINE FERRIS Facility:[facility] Start: 08-15-2022 ambulatory Lynne Ni MD Work Phone: Rheumatology Comment on above: update Start: 08-10-2022 Refill Christie Hays Work Phone: [facility] Comment on above: Refill Request Start: 07-27-2022 End: 07-27-2022 ambulatory TIMMY HECK Facility:[facility] Start: 07-27-2022 End: 07-27-2022 ambulatory Timmy Heck APRN.AIR DRILL OPERATOR Work Phone: Neurology Comment on above: JOSE RAFAEL (obstructive sle ep apnea) (Primary Dx) Start: 07-27-2022 End: 07-27-2022 Telemedicine consultation with patient Timmy Umang DODSONAIR DRILL OPERATOR Work Phone: [facility] Start: 07-24-2022 ambulatory Lynne Ni MD Work Phone: Rheumatology Comment on above: Blood work Start: 07-24-2022 Telephone encounter Jose hooker MD Work Phone: Hematology/Oncology Comment on above: Orders (Lab Orders E xpire Before Appointment) Start: 07-21-2022 ambulatory Lawanda Miranda MD Work Phone: [facility] Start: 07-21-2022 Patient encounter procedure Lawanda [...] End: 04-01-[address] MADELAINE FERRIS . Facility:[facility] Start: 03-31-2022 Refill Christie Hays Work Phone: [...] m caregiver Christie Phan MD Work Phone: [facility] Start: 03-18-2022 End: 03-18-2022 Patient encounter procedure Jose Najera MD Work Phone: [facility] Start: 03-12-2022 End: 03-13-[address] MADELAINE FERRIS . Facility:[facility] Start: 03-10-2022 End: 03-10-2022 ambulatory Tiffany Adilene LIVE Work Phone: Infectious Disease Comment on above: results Raised level of immu noglobulins (Primary Dx); Wound healing, delayed; Current smoker Start: 03-10-2022 E-mail encounter fro m caregiver Tiffanyasif Kelseyjuancarlos LIVE Work Phone: [facility] Start: 03-10-2022 End: 03-10-2022 Telemedicine consultation with patient Misty Nelson MD Work Phone: [employer] Start: 03-09-2022 End: 03-10-2022 ambulatory GAY ENCISO Facility:[facility] Start: 03-09-2022 End: 03-09-2022 Office consultation new/estab patient 80 min Christie Phan MD Work Phone: [facility] Comment on above: Obesity, Class II, B OR 35-39.9 (Primary Dx); Somnolence, daytime; Chronic fatigue [...] encounter procedure Jose Najera MD Work Phone: [facility] Start: 03-02-2022 Chart abstracting Jose waterman MD [...] with patient Tiffany Head DO Work Phone: [facility] Start: 02-14-2022 End: 02-15-[address] MADELAINE FERRIS . Facility:[facility] Start: 11-26-2021 End: 11-26-2021 ambulatory Mirela Kelsey Other [employer] Other Start: 11-26-2021 Office outpatient vi sit 25 minutes Mirela LOPEZ Infectious Disease Start: 11-17-2021 End: 11-18-[address] MIRELA KLESEY Facility:[facility] Start: 10-24-2021 End: 10-24-2021 Patient encounter [...] 10-15-2021 End: 10-15-2021 ambulatory Mirela Kelsey Other [employer] Other Start: 10-15-2021 Office outpatient vi sit 25 minutes Mirela LOPEZ Infectious Disease Start: 10-03-2021 End: [address] MIRELA KELSEY Facility:[facility] Start: 09-18-2021 End: 09-18-2021 ambulatory Mirela Kelsey Other [employer] Other Start: 09-18-2021 Telephone encounter Mirela Kelsey FP [facility] Infectious Disease Start: 09-11-2021 End: 09-11-2021 ambulatory Mirela Kelsey Other [employer] Other Start: 09-11-2021 Office outpatient ne w 45 minutes Mirela Buffy [facility] Start: 10-07-2020 End: 10-08-2020 ambulatory JAREN HOLLEY [facility] Start: 10-07-2020 End: 10-07-2020 Subsequent hospital visit by physician [facility] Rm A [facility] Comment on above: Arrived Start: 09-17-2018 End: 09-17-2018 Patient encounter procedure Bettina Jiménez Facility:[facility] Start: 09-14-2018 End: 09-17-2018 Patient encounter procedure VICTOR MANUEL GUZMAN [facility] Procedures Date Procedure Procedure Detail Performing Clinician Start: 07-13-2023 ECG 12-LEAD MICHELLE NAGE L Start: 07-13-2023 Ecg routine ecg w/le ast 12 lds w/i&r Lois Holm MD Work Phone: Start: 06-09-2023 ECG 12-LEAD MICHELLE NAGE L Start: 06-09-2023 Ecg routine ecg w/le ast 12 lds w/i&r Michelle Sharpeel SPA ASSOCIATE-AIR DRILL OPERATOR Work Phone: Start: 10-07-2020 End: 10-07-2020 [...] Start: 03-17-2025 Diabetes mellitus screening Diabetes Screening [facility] Start: 07-13-2024 End: 07-13-2024 Patient encounter procedure 07/13/2024 9:20 AM EST Office Visit [place] [address] [place] [address] Lois Holm MD [address] [facility] [address] [place] [address] [facility] Start: 01-24-2024 Influenza vaccination [facility] Comment on above: Postponed from 01/22 (Patient Refused) Start: 09-13-2023 End: 09-13-2023 Patient encounter procedure 09/13/2023 9:00 AM EDT Office Visit [facility] [address] [place] [address] Juan Luis Richardson MD [address] [place] [address] [id number] [facility] Start: 07-19-2023 End: 07-19-2023 Patient encounter procedure [facility] Start: 07-15-2023 End: 07-15-2023 Patient encounter procedure 07/15/2023 10:50 AM EST Office Visit [facility] [address] [place] [address] Bernabe English MD [address] [place] [address] [facility] Start: 07-06-2023 End: 07-06-2023 Patient encounter procedure 07/06/2023 2:30 PM EST Office Visit [facility] [address] [place] [address] [phone] Juan Luis Richardson MD [address] [facility] [address] [place] [id number] [facility] [address] Start: 07-06-2023 End: 07-06-2024 Protein electrophoresis, serum Protein electrophoresis, serum Lab Routine Autoimmune disease (CMS/HCC) Autonomic dysfunction Expected: 07/06/2023 (Approximate), Expires: 07/06/2024 [facility] Work Phone: Comment on above: Expected: 07/06/2023 (Approximate), Expires: 07/06/2024 Start: 07-06-2023 End: 07-06-2024 Protein electrophoresis, urine Protein electrophoresis, urine Lab Routine Autoimmune disease (CMS/HCC) Autonomic dysfunction Expected: 07/06/2023 (Approximate), Expires: 07/06/2024 [facility] Comment on above: Expected: 07/06/2023 (Approximate), Expires: 07/06/2024 Start: 06-09-2023 End: 06-09-2024 Holter monitor study 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 Cardiac Services Routine Irregular heart rate Expected: 06/09/2023 (Approximate), Expires: 06/09/2024 [facility] Work Phone: Comment on above: Expected: 06/09/2023 (Approximate), Expires: 06/09/2024 Start: 06-09-2023 End: 06-09-2024 Lipid 1996 panel - Serum or Plasma Lipid Panel Lab Routine Primary hypertension Expected: 06/09/2023 (Approximate), Expires: 06/09/2024 [facility] Work Phone: Comment on above: Expected: 06/09/2023 (Approximate), Expires: 06/09/2024 Start: 06-09-2023 End: 06-09-2024 Thyrotropin [Units/volume] in Serum or Plasma Thyroid Stimulating Hormone Lab Routine Irregular heart rate Expected: 06/09/2023 (Approximate), Expires: 06/09/2024 [facility] Work Phone: Comment on above: Expected: 06/09/2023 (Approximate), Expires: 06/09/2024 Start: 06-09-2023 End: 06-09-2024 Thyroxine (T4) free [Mass/volume] in Serum or Plasma Thyroxine, Free Lab Routine Irregular heart rate Expected: 06/09/2023 (Approximate), Expires: 06/09/2024 [facility] Work Phone: Comment on above: Expected: 06/09/2023 (Approximate), Expires: 06/09/2024 Start: 06-09-2023 End: 06-09-2025 Heart Transthoracic Transthoracic Echo (TTE) Complete Echocardiography Routine Irregular heart rate Obstructive sleep apnea syndrome Expected: 06/09/2023 (Approximate), Expires: 06/09/2025 [facility] Service [facility] Work Phone: Comment on above: Expected: 06/09/2023 (Approximate), Expires: 06/09/2025 Start: 04-25-2023 End: 01-25-2024 25-hydroxyvitamin D3 [Mass/volume] in Serum or Plasma VITAMIN D 25 HYDROXY Lab Routine Vitamin D deficiency Expected: 04/25/2023 (Approximate), Expires: 01/25/2024 [facility] Work Phone: Comment on above: Expected: 04/25/2023 (Approximate), Expires: 01/25/2024 Start: 04-25-2023 End: 01-25-2024 C reactive protein [Mass/volume] in Serum or Plasma C-REACTIVE PROTEIN (CRP) Lab Routine Elevated sed rate Elevated C-reactive protein (CRP) Expected: 04/25/2023 (Approximate), Expires: 01/25/2024 [facility] Work Phone: Comment on above: Expected: 04/25/2023 (Approximate), Expires: 01/25/2024 Start: 04-25-2023 End: 01-25-2024 CBC panel - Blood by Automated count CBC Lab Routine Anemia of chronic disease Expected: 04/25/2023 (Approximate), Expires: 01/25/2024 [facility] Work Phone: Comment on above: Expected: 04/25/2023 (Approximate), Expires: 01/25/2024 Start: 04-25-2023 End: 01-25-2024 Comprehensive metabolic 2000 panel - Serum or Plasma COMP METABOLIC PANEL Lab Routine Elevated LFTs Expected: 04/25/2023 (Approximate), Expires: 01/25/2024 [facility] Work Phone: Comment on above: Expected: 04/25/2023 (Approximate), Expires: 01/25/2024 Start: 04-25-2023 End: 01-25-2024 Erythrocyte sedimentation rate SED RATE WESTERGREN Lab Routine Elevated sed rate Elevated C-reactive protein (CRP) Expected: 04/25/2023 (Approximate), Expires: 01/25/2024 [facility] Work Phone: Comment on above: Expected: 04/25/2023 (Approximate), Expires: 01/25/2024 Start: 04-20-2023 COVID-19 Vaccine (4 - Pfizer risk series) COVID-19 Vaccine (4 - Pfizer risk series) [facility] Start: 04-20-2023 Covid-19 Vaccine ( season) Covid-19 Vaccine ( season) [facility] Start: 04-20-2023 Covid-19 Vaccine ( season) Covid-19 Vaccine ( season) [facility] Start: 04-16-2023 End: 02-20-2024 CBC W Auto Differential panel - Blood CBC + DIFF Lab Routine Megaloblastic anemia due to vitamin B12 deficiency Elevated sed rate Chronic fatigue and malaise High total serum IgM JOSE RAFAEL (obstructive sleep apnea) Expected: 04/16/2023 (Approximate), Expires: 02/20/2024 [facility] Work Phone: Comment on above: Expected: 04/16/2023 (Approximate), Expires: 02/20/2024 Start: 04-16-2023 End: 02-20-2024 Cobalamin (Vitamin B12) [Mass/volume] in Serum or Plasma VITAMIN B12 BLOOD Lab Routine Megaloblastic anemia due to vitamin B12 deficiency Elevated sed rate Chronic fatigue and malaise High total serum IgM JOSE RAFAEL (obstructive sleep apnea) Expected: 04/16/2023 (Approximate), Expires: 02/20/2024 [facility] Work Phone: Comment on above: Expected: 04/16/2023 (Approximate), Expires: 02/20/2024 Start: 04-16-2023 End: 02-20-2024 Comprehensive metabolic 2000 panel - Serum or Plasma COMP METABOLIC PANEL Lab Routine Megaloblastic anemia due to vitamin B12 deficiency Elevated sed rate Chronic fatigue and malaise High total serum IgM JOSE RAFAEL (obstructive sleep apnea) Expected: 04/16/2023 (Approximate), Expires: 02/20/2024 [facility] Work Phone: Comment on above: Expected: 04/16/2023 (Approximate), Expires: 02/20/2024 Start: 04-16-2023 End: 02-20-2024 Ferritin [Mass/volume] in Serum or Plasma FERRITIN BLD Lab Routine Megaloblastic anemia due to vitamin B12 deficiency Elevated sed rate Chronic fatigue and malaise High total serum IgM JOSE RAFAEL (obstructive sleep apnea) Expected: 04/16/2023 (Approximate), Expires: 02/20/2024 [facility] Work Phone: Comment on above: Expected: 04/16/2023 (Approximate), Expires: 02/20/2024 Start: 04-16-2023 End: 02-20-2024 Folate [Mass/volume] in Serum or Plasma FOLATE SERUM Lab Routine Megaloblastic anemia due to vitamin B12 deficiency Elevated sed rate Chronic fatigue and malaise High total serum IgM JOSE RAFAEL (obstructive sleep apnea) Expected: 04/16/2023 (Approximate), Expires: 02/20/2024 [facility] Work Phone: Comment on above: Expected: 04/16/2023 (Approximate), Expires: 02/20/2024 Start: 04-16-2023 End: 02-20-2024 Iron and Iron binding capacity panel - Serum or Plasma IRON + TIBC Lab Routine Megaloblastic anemia due to vitamin B12 deficiency Elevated sed rate Chronic fatigue and malaise High total serum IgM JOSE RAFAEL (obstructive sleep apnea) Expected: 04/16/2023 (Approximate), Expires: 02/20/2024 [facility] Work Phone: Comment on above: Expected: 04/16/2023 (Approximate), Expires: 02/20/2024 Start: 03-17-2023 Diabetes mellitus screening Diabetes Screening [facility] Start: 03-10-2023 End: 06-09-2023 Insulin [Units/volume] in Serum or Plasma INSULIN ASSAY BLOOD Lab Routine Insulin resistance, unspecified Expected: 03/10/2023, Expires: 06/09/2023 [facility] Work Phone: Comment on above: Expected: 03/10/2023 , Expires: 06/09/2023 Start: 03-10-2023 End: 06-09-2023 INSULIN ANTIBODY BLD INSULIN ANTIBODY BLD Lab Routine Insulin resistance, unspecified Expected: 03/10/2023, Expires: 06/09/2023 [facility] Work Phone: Comment on above: Expected: 03/10/2023 , Expires: 06/09/2023 Start: 02-11-2023 End: 02-08-2024 [id number] [Mass/volume] in Serum or Plasma B2 MICROGLOBULIN B Lab Routine Megaloblastic anemia due to vitamin B12 deficiency High total serum IgM Elevated sed rate Expected: 02/11/2023 (Approximate), Expires: 02/08/2024 [facility] Work Phone: Comment on above: Expected: 02/11/2023 (Approximate), Expires: 02/08/2024 Start: 02-11-2023 End: 02-08-2024 Calcium.ionized [Moles/volume] in Blood CALCIUM IONIZED BLOOD Lab Routine Megaloblastic anemia due to vitamin B12 deficiency High total serum IgM Elevated sed rate Expected: 02/11/2023 (Approximate), Expires: 02/08/2024 [facility] Work Phone: Comment on above: Expected: 02/11/2023 (Approximate), Expires: 02/08/2024 Start: 02-11-2023 End: 02-08-2024 CBC W Auto Differential panel - Blood CBC + DIFF Lab Routine Megaloblastic anemia due to vitamin B12 deficiency High total serum IgM Elevated sed rate Expected: 02/11/2023 (Approximate), Expires: 02/08/2024 [facility] Work Phone: Comment on above: Expected: 02/11/2023 (Approximate), Expires: 02/08/2024 Start: 02-11-2023 End: 02-08-2024 Cobalamin (Vitamin B12) [Mass/volume] in Serum or Plasma VITAMIN B12 BLOOD Lab Routine Megaloblastic anemia due to vitamin B12 deficiency High total serum IgM Elevated sed rate Expected: 02/11/2023 (Approximate), Expires: 02/08/2024 [facility] Work Phone: Comment on above: Expected: 02/11/2023 (Approximate), Expires: 02/08/2024 Start: 02-11-2023 End: 02-08-2024 Comprehensive metabolic 2000 panel - Serum or Plasma COMP METABOLIC PANEL Lab Routine Megaloblastic anemia due to vitamin B12 deficiency High total serum IgM Elevated sed rate Expected: 02/11/2023 (Approximate), Expires: 02/08/2024 [facility] Work Phone: Comment on above: Expected: 02/11/2023 (Approximate), Expires: 02/08/2024 Start: 02-11-2023 End: 02-08-2024 Ferritin [Mass/volume] in Serum or Plasma FERRITIN BLD Lab Routine Megaloblastic anemia due to vitamin B12 deficiency High total serum IgM Elevated sed rate Expected: 02/11/2023 (Approximate), Expires: 02/08/2024 [facility] Work Phone: Comment on above: Expected: 02/11/2023 (Approximate), Expires: 02/08/2024 Start: 02-11-2023 End: 02-08-2024 Folate [Mass/volume] in Serum or Plasma FOLATE SERUM Lab Routine Megaloblastic anemia due to vitamin B12 deficiency High total serum IgM Elevated sed rate Expected: 02/11/2023 (Approximate), Expires: 02/08/2024 [facility] Work Phone: Comment on above: Expected: 02/11/2023 (Approximate), Expires: 02/08/2024 Start: 02-11-2023 End: 02-08-2024 Iron and Iron binding capacity panel - Serum or Plasma IRON + TIBC Lab Routine Megaloblastic anemia due to vitamin B12 deficiency High total serum IgM Elevated sed rate Expected: 02/11/2023 (Approximate), Expires: 02/08/2024 [facility] Work Phone: Comment on above: Expected: 02/11/2023 (Approximate), Expires: 02/08/2024 Start: 02-11-2023 End: 04-13-2023 KAPPA/FARMER,FREE,SER KAPPA/FARMER,FREE,SER Lab Routine Megaloblastic anemia due to vitamin B12 deficiency High total serum IgM Elevated sed rate Expected: 02/11/2023 (Approximate), Expires: 04/13/2023 [facility] Work Phone: Comment on above: Expected: 02/11/2023 (Approximate), Expires: 04/13/2023 Start: 02-11-2023 End: 02-08-2024 Lactate dehydrogenase [Enzymatic activity/volume] in Serum or Plasma LD LACTATE DEHYDRO Lab Routine Megaloblastic anemia due to vitamin B12 deficiency High total serum IgM Elevated sed rate Expected: 02/11/2023 (Approximate), Expires: 02/08/2024 [facility] Work Phone: Comment on above: Expected: 02/11/2023 (Approximate), Expires: 02/08/2024 Start: 02-11-2023 End: 02-08-2024 MONOCLONAL PROTEIN, SERUM (BLOOD) MONOCLONAL PROTEIN, SERUM (BLOOD) Lab Routine Megaloblastic anemia due to vitamin B12 deficiency High total serum IgM Elevated sed rate Expected: 02/11/2023 (Approximate), Expires: 02/08/2024 [facility] Work Phone: Comment on above: Expected: 02/11/2023 (Approximate), Expires: 02/08/2024 Start: 02-11-2023 End: 02-08-2024 Phosphate [Mass/volume] in Serum or Plasma PHOSPHORUS INORGANIC Lab Routine Megaloblastic anemia due to vitamin B12 deficiency High total serum IgM Elevated sed rate Expected: 02/11/2023 (Approximate), Expires: 02/08/2024 [facility] Work Phone: Comment on above: Expected: 02/11/2023 (Approximate), Expires: 02/08/2024 Start: 02-11-2023 End: 02-08-2024 PROTEIN ELECTROPHORESIS SERUM W/INTERP PROTEIN ELECTROPHORESIS SERUM W/INTERP Lab Routine Megaloblastic anemia due to vitamin B12 deficiency High total serum IgM Elevated sed rate Expected: 02/11/2023 (Approximate), Expires: 02/08/2024 [facility] Work Phone: Comment on above: Expected: 02/11/2023 (Approximate), Expires: 02/08/2024 Start: 02-11-2023 End: 02-08-2024 Urate [Mass/volume] in Serum or Plasma URIC ACID BLOOD Lab Routine Megaloblastic anemia due to vitamin B12 deficiency High total serum IgM Elevated sed rate Expected: 02/11/2023 (Approximate), Expires: 02/08/2024 [facility] Work Phone: Comment on above: Expected: 02/11/2023 (Approximate), Expires: 02/08/2024 Start: 01-22-2023 Influenza vaccination [facility] Start: 12-17-2022 End: 10-23-2023 CBC W Auto Differential panel - Blood CBC + DIFF Lab Routine Megaloblastic anemia due to vitamin B12 deficiency Expected: 12/17/2022 (Approximate), Expires: 10/23/2023 [facility] Work Phone: Comment on above: Expected: 12/17/2022 (Approximate), Expires: 10/23/2023 Start: 12-17-2022 End: 10-23-2023 Cobalamin (Vitamin B12) [Mass/volume] in Serum or Plasma VITAMIN B12 BLOOD Lab Routine Megaloblastic anemia due to vitamin B12 deficiency Expected: 12/17/2022 (Approximate), Expires: 10/23/2023 [facility] Work Phone: Comment on above: Expected: 12/17/2022 (Approximate), Expires: 10/23/2023 Start: 12-17-2022 End: 10-23-2023 Comprehensive metabolic 2000 panel - Serum or Plasma COMP METABOLIC PANEL Lab Routine Megaloblastic anemia due to vitamin B12 deficiency Expected: 12/17/2022 (Approximate), Expires: 10/23/2023 [facility] Work Phone: Comment on above: Expected: 12/17/2022 (Approximate), Expires: 10/23/2023 Start: 12-17-2022 End: 10-23-2023 Ferritin [Mass/volume] in Serum or Plasma FERRITIN BLD Lab Routine Megaloblastic anemia due to vitamin B12 deficiency Expected: 12/17/2022 (Approximate), Expires: 10/23/2023 [facility] Work Phone: Comment on above: Expected: 12/17/2022 (Approximate), Expires: 10/23/2023 Start: 12-17-2022 End: 10-23-2023 Folate [Mass/volume] in Serum or Plasma FOLATE SERUM Lab Routine Megaloblastic anemia due to vitamin B12 deficiency Expected: 12/17/2022 (Approximate), Expires: 10/23/2023 [facility] Work Phone: Comment on above: Expected: 12/17/2022 (Approximate), Expires: 10/23/2023 Start: 12-17-2022 End: 10-23-2023 Iron and Iron binding capacity panel - Serum or Plasma IRON + TIBC Lab Routine Megaloblastic anemia due to vitamin B12 deficiency Expected: 12/17/2022 (Approximate), Expires: 10/23/2023 [facility] Work Phone: Comment on above: Expected: 12/17/2022 (Approximate), Expires: 10/23/2023 Start: 10-23-2022 End: 12-23-2022 25-hydroxyvitamin D3 [Mass/volume] in Serum or Plasma VITAMIN D 25 HYDROXY Lab Routine Megaloblastic anemia due to vitamin B12 deficiency Elevated sed rate High total serum IgM Chronic fatigue and malaise JOSE RAFAEL (obstructive sleep apnea) Expected: 10/23/2022, Expires: 12/23/2022 [facility] Work Phone: Comment on above: Expected: 10/23/2022 , Expires: 12/23/2022 Start: 10-23-2022 End: 12-23-2022 C reactive protein [Mass/volume] in Serum or Plasma C-REACTIVE PROTEIN (CRP) Lab Routine Megaloblastic anemia due to vitamin B12 deficiency Elevated sed rate High total serum IgM Chronic fatigue and malaise JOSE RAFAEL (obstructive sleep apnea) Expected: 10/23/2022, Expires: 12/23/2022 [facility] Work Phone: Comment on above: Expected: 10/23/2022 , Expires: 12/23/2022 Start: 10-23-2022 End: 12-23-2022 CBC W Auto Differential panel - Blood CBC + DIFF Lab Routine Megaloblastic anemia due to vitamin B12 deficiency Elevated sed rate High total serum IgM Chronic fatigue and malaise JOSE RAFAEL (obstructive sleep apnea) Expected: 10/23/2022, Expires: 12/23/2022 [facility] Work Phone: Comment on above: Expected: 10/23/2022 , Expires: 12/23/2022 Start: 10-23-2022 End: 12-23-2022 Cobalamin (Vitamin B12) [Mass/volume] in Serum or Plasma VITAMIN B12 BLOOD Lab Routine Megaloblastic anemia due to vitamin B12 deficiency Elevated sed rate High total serum IgM Chronic fatigue and malaise JOSE RAFAEL (obstructive sleep apnea) Expected: 10/23/2022, Expires: 12/23/2022 [facility] Work Phone: Comment on above: Expected: 10/23/2022 , Expires: 12/23/2022 Start: 10-23-2022 End: 12-23-2022 Comprehensive metabolic 2000 panel - Serum or Plasma COMP METABOLIC PANEL Lab Routine Megaloblastic anemia due to vitamin B12 deficiency Elevated sed rate High total serum IgM Chronic fatigue and malaise JOSE RAFAEL (obstructive sleep apnea) Expected: 10/23/2022, Expires: 12/23/2022 [facility] Work Phone: Comment on above: Expected: 10/23/2022 , Expires: 12/23/2022 Start: 10-23-2022 End: 12-23-2022 Erythrocyte sedimentation rate SED RATE WESTERGREN Lab Routine Megaloblastic anemia due to vitamin B12 deficiency Elevated sed rate High total serum IgM Chronic fatigue and malaise JOSE RAFAEL (obstructive sleep apnea) Expected: 10/23/2022, Expires: 12/23/2022 [facility] Work Phone: Comment on above: Expected: 10/23/2022 , Expires: 12/23/2022 Start: 10-23-2022 End: 12-23-2022 Lactate dehydrogenase [Enzymatic activity/volume] in Serum or Plasma LD LACTATE DEHYDRO Lab Routine Megaloblastic anemia due to vitamin B12 deficiency Elevated sed rate High total serum IgM Chronic fatigue and malaise JOSE RAFAEL (obstructive sleep apnea) Expected: 10/23/2022, Expires: 12/23/2022 [facility] Work Phone: Comment on above: Expected: 10/23/2022 , Expires: 12/23/2022 Start: 10-23-2022 End: 12-23-2022 MONOCLONAL PROTEIN, SERUM (BLOOD) MONOCLONAL PROTEIN, SERUM (BLOOD) Lab Routine Megaloblastic anemia due to vitamin B12 deficiency Elevated sed rate High total serum IgM Chronic fatigue and malaise JOSE RAFAEL (obstructive sleep apnea) Expected: 10/23/2022, Expires: 12/23/2022 [facility] Work Phone: Comment on above: Expected: 10/23/2022 , Expires: 12/23/2022 Start: 10-23-2022 End: 12-23-2022 PROT ELECT SERUM WITH DANA AND INTERP PROT ELECT SERUM WITH DANA AND INTERP Lab Routine Megaloblastic anemia due to vitamin B12 deficiency Elevated sed rate High total serum IgM Chronic fatigue and malaise JOSE RAFAEL (obstructive sleep apnea) Expected: 10/23/2022, Expires: 12/23/2022 [facility] Work Phone: Comment on above: Expected: 10/23/2022 , Expires: 12/23/2022 Start: 09-19-2022 End: 08-20-2023 CBC panel - Blood by Automated count CBC Lab Routine Anemia of chronic disease Expected: 09/19/2022 (Approximate), Expires: 08/20/2023 [facility] Work Phone: Comment on above: Expected: 09/19/2022 (Approximate), Expires: 08/20/2023 Start: 09-19-2022 End: 08-20-2023 Comprehensive metabolic 2000 panel - Serum or Plasma COMP METABOLIC PANEL Lab Routine Elevated LFTs Expected: 09/19/2022 (Approximate), Expires: 08/20/2023 [facility] Work Phone: Comment on above: Expected: 09/19/2022 (Approximate), Expires: 08/20/2023 Start: 09-19-2022 End: 11-19-2022 TPMT PHENOTYPE/ENZYME ACTIVITY TPMT PHENOTYPE/ENZYME ACTIVITY Lab Routine 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 jail 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 Expected: 09/19/2022 (Approximate), Expires: 11/19/2022 [facility] Work Phone: Comment on above: Expected: 09/19/2022 (Approximate), Expires: 11/19/2022 Start: 08-28-2022 End: 10-28-2022 25-hydroxyvitamin D3 [Mass/volume] in Serum or Plasma VITAMIN D 25 HYDROXY Lab Routine Megaloblastic anemia due to vitamin B12 deficiency Elevated sed rate High total serum IgM Chronic fatigue and malaise Expected: 08/28/2022 (Approximate), Expires: 10/28/2022 [facility] Work Phone: Comment on above: Expected: 08/28/2022 (Approximate), Expires: 10/28/2022 Start: 08-28-2022 End: 07-26-2023 [id number] [Mass/volume] in Serum or Plasma B2 MICROGLOBULIN B Lab Routine Megaloblastic anemia due to vitamin B12 deficiency Elevated sed rate High total serum IgM Chronic fatigue and malaise Expected: 08/28/2022 (Approximate), Expires: 07/26/2023 [facility] Work Phone: Comment on above: Expected: 08/28/2022 (Approximate), Expires: 07/26/2023 Start: 08-28-2022 End: 10-28-2022 C reactive protein [Mass/volume] in Serum or Plasma C-REACTIVE PROTEIN (CRP) Lab Routine Megaloblastic anemia due to vitamin B12 deficiency Elevated sed rate High total serum IgM Chronic fatigue and malaise Expected: 08/28/2022 (Approximate), Expires: 10/28/2022 [facility] Work Phone: Comment on above: Expected: 08/28/2022 (Approximate), Expires: 10/28/2022 Start: 08-28-2022 End: 07-26-2023 Calcium.ionized [Moles/volume] in Blood CALCIUM IONIZED BLOOD Lab Routine Megaloblastic anemia due to vitamin B12 deficiency Elevated sed rate High total serum IgM Chronic fatigue and malaise Expected: 08/28/2022 (Approximate), Expires: 07/26/2023 [facility] Work Phone: Comment on above: Expected: 08/28/2022 (Approximate), Expires: 07/26/2023 Start: 08-28-2022 End: 07-26-2023 CBC W Auto Differential panel - Blood CBC + DIFF Lab Routine Megaloblastic anemia due to vitamin B12 deficiency Elevated sed rate High total serum IgM Chronic fatigue and malaise Expected: 08/28/2022 (Approximate), Expires: 07/26/2023 [facility] Work Phone: Comment on above: Expected: 08/28/2022 (Approximate), Expires: 07/26/2023 Start: 08-28-2022 End: 10-28-2022 Cobalamin (Vitamin B12) [Mass/volume] in Serum or Plasma VITAMIN B12 BLOOD Lab Routine Megaloblastic anemia due to vitamin B12 deficiency Elevated sed rate High total serum IgM Chronic fatigue and malaise Expected: 08/28/2022 (Approximate), Expires: 10/28/2022 [facility] Work Phone: Comment on above: Expected: 08/28/2022 (Approximate), Expires: 10/28/2022 Start: 08-28-2022 End: 07-26-2023 Comprehensive metabolic 2000 panel - Serum or Plasma COMP METABOLIC PANEL Lab Routine Megaloblastic anemia due to vitamin B12 deficiency Elevated sed rate High total serum IgM Chronic fatigue and malaise Expected: 08/28/2022 (Approximate), Expires: 07/26/2023 [facility] Work Phone: Comment on above: Expected: 08/28/2022 (Approximate), Expires: 07/26/2023 Start: 08-28-2022 End: 10-28-2022 Erythrocyte sedimentation rate SED RATE WESTERGREN Lab Routine Megaloblastic anemia due to vitamin B12 deficiency Elevated sed rate High total serum IgM Chronic fatigue and malaise Expected: 08/28/2022 (Approximate), Expires: 10/28/2022 [facility] Work Phone: Comment on above: Expected: 08/28/2022 (Approximate), Expires: 10/28/2022 Start: 08-28-2022 End: 10-28-2022 KAPPA/FARMER,FREE,SER KAPPA/FARMER,FREE,SER Lab Routine Megaloblastic anemia due to vitamin B12 deficiency Elevated sed rate High total serum IgM Chronic fatigue and malaise Expected: 08/28/2022 (Approximate), Expires: 10/28/2022 [facility] Work Phone: Comment on above: Expected: 08/28/2022 (Approximate), Expires: 10/28/2022 Start: 08-28-2022 End: 07-26-2023 Lactate dehydrogenase [Enzymatic activity/volume] in Serum or Plasma LD LACTATE DEHYDRO Lab Routine Megaloblastic anemia due to vitamin B12 deficiency Elevated sed rate High total serum IgM Chronic fatigue and malaise Expected: 08/28/2022 (Approximate), Expires: 07/26/2023 [facility] Work Phone: Comment on above: Expected: 08/28/2022 (Approximate), Expires: 07/26/2023 Start: 08-28-2022 End: 07-26-2023 MONOCLONAL PROTEIN, SERUM (BLOOD) MONOCLONAL PROTEIN, SERUM (BLOOD) Lab Routine Megaloblastic anemia due to vitamin B12 deficiency Elevated sed rate High total serum IgM Chronic fatigue and malaise Expected: 08/28/2022 (Approximate), Expires: 07/26/2023 [facility] Work Phone: Comment on above: Expected: 08/28/2022 (Approximate), Expires: 07/26/2023 Start: 08-28-2022 End: 07-26-2023 Phosphate [Mass/volume] in Serum or Plasma PHOSPHORUS INORGANIC Lab Routine Megaloblastic anemia due to vitamin B12 deficiency Elevated sed rate High total serum IgM Chronic fatigue and malaise Expected: 08/28/2022 (Approximate), Expires: 07/26/2023 [facility] Work Phone: Comment on above: Expected: 08/28/2022 (Approximate), Expires: 07/26/2023 Start: 08-28-2022 End: 07-26-2023 PROTEIN ELECTROPHORESIS SERUM W/INTERP PROTEIN ELECTROPHORESIS SERUM W/INTERP Lab Routine Megaloblastic anemia due to vitamin B12 deficiency Elevated sed rate High total serum IgM Chronic fatigue and malaise Expected: 08/28/2022 (Approximate), Expires: 07/26/2023 [facility] Work Phone: Comment on above: Expected: 08/28/2022 (Approximate), Expires: 07/26/2023 Start: 08-28-2022 End: 07-26-2023 Urate [Mass/volume] in Serum or Plasma URIC ACID BLOOD Lab Routine Megaloblastic anemia due to vitamin B12 deficiency Elevated sed rate High total serum IgM Chronic fatigue and malaise Expected: 08/28/2022 (Approximate), Expires: 07/26/2023 [facility] Work Phone: Comment on above: Expected: 08/28/2022 (Approximate), Expires: 07/26/2023 Start: 07-15-2022 End: 05-20-2023 [id number] [Mass/volume] in Serum or Plasma B2 MICROGLOBULIN B Lab Routine High total serum IgM Expected: 07/15/2022 (Approximate), Expires: 05/20/2023 [facility] Work Phone: Comment on above: Expected: 07/15/2022 (Approximate), Expires: 05/20/2023 Start: 07-15-2022 End: 05-20-2023 Calcium.ionized [Moles/volume] in Blood CALCIUM IONIZED BLOOD Lab Routine High total serum IgM Expected: 07/15/2022 (Approximate), Expires: 05/20/2023 [facility] Work Phone: Comment on above: Expected: 07/15/2022 (Approximate), Expires: 05/20/2023 Start: 07-15-2022 End: 05-20-2023 CBC W Auto Differential panel - Blood CBC + DIFF Lab Routine High total serum IgM Expected: 07/15/2022 (Approximate), Expires: 05/20/2023 [facility] Work Phone: Comment on above: Expected: 07/15/2022 (Approximate), Expires: 05/20/2023 Start: 07-15-2022 End: 05-20-2023 Comprehensive metabolic 2000 panel - Serum or Plasma COMP METABOLIC PANEL Lab Routine High total serum IgM Expected: 07/15/2022 (Approximate), Expires: 05/20/2023 [facility] Work Phone: Comment on above: Expected: 07/15/2022 (Approximate), Expires: 05/20/2023 Start: 07-15-2022 End: 09-14-2022 KAPPA/FARMER,FREE,SER KAPPA/AFRMER,FREE,SER Lab Routine High total serum IgM Expected: 07/15/2022 (Approximate), Expires: 09/14/2022 [facility] Work Phone: Comment on above: Expected: 07/15/2022 (Approximate), Expires: 09/14/2022 Start: 07-15-2022 End: 05-20-2023 Lactate dehydrogenase [Enzymatic activity/volume] in Serum or Plasma LD LACTATE DEHYDRO Lab Routine High total serum IgM Expected: 07/15/2022 (Approximate), Expires: 05/20/2023 [facility] Work Phone: Comment on above: Expected: 07/15/2022 (Approximate), Expires: 05/20/2023 Start: 07-15-2022 End: 05-20-2023 MONOCLONAL PROTEIN, SERUM (BLOOD) MONOCLONAL PROTEIN, SERUM (BLOOD) Lab Routine High total serum IgM Expected: 07/15/2022 (Approximate), Expires: 05/20/2023 [facility] Work Phone: Comment on above: Expected: 07/15/2022 (Approximate), Expires: 05/20/2023 Start: 07-15-2022 End: 05-20-2023 Phosphate [Mass/volume] in Serum or Plasma PHOSPHORUS INORGANIC Lab Routine High total serum IgM Expected: 07/15/2022 (Approximate), Expires: 05/20/2023 [facility] Work Phone: Comment on above: Expected: 07/15/2022 (Approximate), Expires: 05/20/2023 Start: 07-15-2022 End: 05-20-2023 PROTEIN ELECTROPHORESIS SERUM W/INTERP PROTEIN ELECTROPHORESIS SERUM W/INTERP Lab Routine High total serum IgM Expected: 07/15/2022 (Approximate), Expires: 05/20/2023 [facility] Work Phone: Comment on above: Expected: 07/15/2022 (Approximate), Expires: 05/20/2023 Start: 07-15-2022 End: 05-20-2023 Urate [Mass/volume] in Serum or Plasma URIC ACID BLOOD Lab Routine High total serum IgM Expected: 07/15/2022 (Approximate), Expires: 05/20/2023 [facility] Work Phone: Comment on above: Expected: 07/15/2022 (Approximate), Expires: 05/20/2023 Start: 06-05-2022 End: 03-05-2023 25-hydroxyvitamin D3 [Mass/volume] in Serum or Plasma VITAMIN D 25 HYDROXY Lab Routine Vitamin D deficiency Expected: 06/05/2022 (Approximate), Expires: 03/05/2023 [facility] Work Phone: Comment on above: Expected: 06/05/2022 (Approximate), Expires: 03/05/2023 Start: 06-05-2022 End: 03-05-2023 C reactive protein [Mass/volume] in Serum or Plasma C-REACTIVE PROTEIN (CRP) Lab Routine Elevated sed rate Elevated C-reactive protein (CRP) Expected: 06/05/2022 (Approximate), Expires: 03/05/2023 [facility] Work Phone: Comment on above: Expected: 06/05/2022 (Approximate), Expires: 03/05/2023 Start: 06-05-2022 End: 03-05-2023 Cobalamin (Vitamin B12) [Mass/volume] in Serum or Plasma VITAMIN B12 BLOOD Lab Routine Vitamin B12 deficiency Expected: 06/05/2022 (Approximate), Expires: 03/05/2023 [facility] Work Phone: Comment on above: Expected: 06/05/2022 (Approximate), Expires: 03/05/2023 Start: 06-05-2022 End: 03-05-2023 Erythrocyte sedimentation rate SED RATE WESTERGREN Lab Routine Elevated sed rate Elevated C-reactive protein (CRP) Expected: 06/05/2022 (Approximate), Expires: 03/05/2023 [facility] Work Phone: Comment on above: Expected: 06/05/2022 (Approximate), Expires: 03/05/2023 Start: 05-06-2022 End: 03-18-2023 [id number] [Mass/volume] in Serum or Plasma B2 MICROGLOBULIN B Lab Routine Megaloblastic anemia due to vitamin B12 deficiency High total serum IgM Expected: 05/06/2022 (Approximate), Expires: 03/18/2023 [facility] Work Phone: Comment on above: Expected: 05/06/2022 (Approximate), Expires: 03/18/2023 Start: 05-06-2022 End: 03-18-2023 Calcium.ionized [Moles/volume] in Blood CALCIUM IONIZED BLOOD Lab Routine Megaloblastic anemia due to vitamin B12 deficiency High total serum IgM Expected: 05/06/2022 (Approximate), Expires: 03/18/2023 [facility] Work Phone: Comment on above: Expected: 05/06/2022 (Approximate), Expires: 03/18/2023 Start: 05-06-2022 End: 03-18-2023 CBC W Auto Differential panel - Blood CBC + DIFF Lab Routine Megaloblastic anemia due to vitamin B12 deficiency High total serum IgM Expected: 05/06/2022 (Approximate), Expires: 03/18/2023 [facility] Work Phone: Comment on above: Expected: 05/06/2022 (Approximate), Expires: 03/18/2023 Start: 05-06-2022 End: 03-18-2023 Comprehensive metabolic 2000 panel - Serum or Plasma COMP METABOLIC PANEL Lab Routine Megaloblastic anemia due to vitamin B12 deficiency High total serum IgM Expected: 05/06/2022 (Approximate), Expires: 03/18/2023 [facility] Work Phone: Comment on above: Expected: 05/06/2022 (Approximate), Expires: 03/18/2023 Start: 05-06-2022 End: 03-18-2023 Ferritin [Mass/volume] in Serum or Plasma FERRITIN BLD Lab Routine Megaloblastic anemia due to vitamin B12 deficiency High total serum IgM Expected: 05/06/2022 (Approximate), Expires: 03/18/2023 [facility] Work Phone: Comment on above: Expected: 05/06/2022 (Approximate), Expires: 03/18/2023 Start: 05-06-2022 End: 03-18-2023 Iron and Iron binding capacity panel - Serum or Plasma IRON + TIBC Lab Routine Megaloblastic anemia due to vitamin B12 deficiency High total serum IgM Expected: 05/06/2022 (Approximate), Expires: 03/18/2023 [facility] Work Phone: Comment on above: Expected: 05/06/2022 (Approximate), Expires: 03/18/2023 Start: 05-06-2022 End: 03-18-2023 Lactate dehydrogenase [Enzymatic activity/volume] in Serum or Plasma LD LACTATE DEHYDRO Lab Routine Megaloblastic anemia due to vitamin B12 deficiency High total serum IgM Expected: 05/06/2022 (Approximate), Expires: 03/18/2023 [facility] Work Phone: Comment on above: Expected: 05/06/2022 (Approximate), Expires: 03/18/2023 Start: 05-06-2022 End: 03-18-2023 MONOCLONAL PROTEIN, SERUM (BLOOD) MONOCLONAL PROTEIN, SERUM (BLOOD) Lab Routine Megaloblastic anemia due to vitamin B12 deficiency High total serum IgM Expected: 05/06/2022 (Approximate), Expires: 03/18/2023 [facility] Work Phone: Comment on above: Expected: 05/06/2022 (Approximate), Expires: 03/18/2023 Start: 05-06-2022 End: 03-18-2023 Phosphate [Mass/volume] in Serum or Plasma PHOSPHORUS INORGANIC Lab Routine Megaloblastic anemia due to vitamin B12 deficiency High total serum IgM Expected: 05/06/2022 (Approximate), Expires: 03/18/2023 [facility] Work Phone: Comment on above: Expected: 05/06/2022 (Approximate), Expires: 03/18/2023 Start: 05-06-2022 End: 03-18-2023 PROTEIN ELECTROPHORESIS SERUM W/INTERP PROTEIN ELECTROPHORESIS SERUM W/INTERP Lab Routine Megaloblastic anemia due to vitamin B12 deficiency High total serum IgM Expected: 05/06/2022 (Approximate), Expires: 03/18/2023 [facility] Work Phone: Comment on above: Expected: 05/06/2022 (Approximate), Expires: 03/18/2023 Start: 05-06-2022 End: 03-18-2023 Urate [Mass/volume] in Serum or Plasma URIC ACID BLOOD Lab Routine Megaloblastic anemia due to vitamin B12 deficiency High total serum IgM Expected: 05/06/2022 (Approximate), Expires: 03/18/2023 [facility] Work Phone: Comment on above: Expected: 05/06/2022 (Approximate), Expires: 03/18/2023 Start: 04-05-2022 COVID-19 VACCINE (5 - Pfizer risk series) COVID-19 VACCINE (5 - Pfizer risk series) [facility] Start: 03-09-2022 End: 05-09-2022 Hemoglobin A1c in Blood HGB A1C Lab Routine Elevated glucose Expected: 03/09/2022, Expires: 05/09/2022 [facility] Work Phone: Comment on above: Expected: 03/09/2022 , Expires: 05/09/2022 Start: 02-24-2022 End: 04-26-2022 BARTONELLA AB PANEL BARTONELLA AB PANEL Lab Routine Swelling of lymph nodes Expected: 02/24/2022, Expires: 04/26/2022 [facility] Work Phone: Comment on above: Expected: 02/24/2022 , Expires: 04/26/2022 Start: 02-24-2022 End: 04-26-2022 BRUCELLA AB TOTAL BRUCELLA AB TOTAL Lab Routine Swelling of lymph nodes Expected: 02/24/2022, Expires: 04/26/2022 [facility] Work Phone: Comment on above: Expected: 02/24/2022 , Expires: 04/26/2022 Start: 02-24-2022 End: 04-26-2022 Cryptococcus sp Ag [Presence] in Unspecified specimen by Latex agglutination CRYPTOCOCCUS AG DET Microbiology Routine Swelling of lymph nodes Expected: 02/24/2022, Expires: 04/26/2022 [facility] Work Phone: Comment on above: Expected: 02/24/2022 , Expires: 04/26/2022 Start: 02-24-2022 End: 04-26-2022 HISTOPLASMA AG URINE HISTOPLASMA AG URINE Lab Routine Swelling of lymph nodes Expected: 02/24/2022, Expires: 04/26/2022 [facility] Work Phone: Comment on above: Expected: 02/24/2022 , Expires: 04/26/2022 Start: 02-24-2022 End: 04-26-2022 HIV 1 RNA [#/volume] (viral load) in Serum or Plasma by YESSI with probe detection HIV RNA VIRAL LOAD Lab Routine Swelling of lymph nodes Expected: 02/24/2022, Expires: 04/26/2022 [facility] Work Phone: Comment on above: Expected: 02/24/2022 , Expires: 04/26/2022 Start: 02-24-2022 End: 04-26-2022 SYPHILIS TOTAL W/REFLEX SYPHILIS TOTAL W/REFLEX Lab Routine Swelling of lymph nodes Expected: 02/24/2022, Expires: 04/26/2022 [facility] Work Phone: Comment on above: Expected: 02/24/2022 , Expires: 04/26/2022 Start: 01-22-2022 Influenza vaccination [facility] Start: 08-24-2021 COVID-19 VACCINE (4 - Booster for Pfizer series) COVID-19 VACCINE (4 - Booster for Pfizer series) [facility] Start: 01-22-2021 Influenza vaccination Flu vacc ine (Season Ended) [facility] [employer] Work Phone: Start: 2020 Lipid panel Lipid screen [facility] Work Phone: Start: 2020 Mammography [facility] Start: 2020 Screening for malign ant neoplasm of breast [facility] Start: 2010 HPV TESTING HPV TESTING [facility] Start: 2010 Screening for malign ant neoplasm of cervix [facility] Start: 2002 DTaP/Tdap/Td Vaccine s (1 - Tdap) DTaP/Tdap/Td Vaccines (1 - Tdap) [facility] Start: 2001 PAP TESTING PAP TESTING [facility] Start: 2001 Screening for malign ant neoplasm of cervix [facility] Start: 10-05-1999 DTaP/Tdap/Td vaccine (1 - Tdap) DTaP/Tdap/Td vaccine (1 - Tdap) [facility] Phone: Start: 10-05-1999 SHINGRIX VACCINE (1 of 2) SHINGRIX VACCINE (1 of 2) [facility] Start: 10-05-1999 Urine microalbumin profile [facility] Start: 10-05-1999 Zoster Vaccines (1 of 2) Zoster Vacc aston (1 of 2) [facility] Start: 1998 [facility] Start: 1998 HIV SCREENING HIV SCREENING [facility] Start: 1998 HIV screening HIV Screening [facility] Start: 10-05-1995 HIV screening HIV screen [facility] Work Phone: Start: 1992 COVID-19 Vaccine (1) COVID-19 Vaccin e (1) [facility] Work Phone: Start: 1986 PNEUMOCOCCAL (1 - PCV) PNEUMOCOCCAL (1 - PCV) [facility] Start: 1986 Pneumococcal vaccination [facility] Start: 1986 Pneumococcal Vaccine : Pediatrics (0 to 5 Years) and At-Risk Patients (6 to 64 Years) (1 - PCV) Pneumococcal Vaccine: Pediatrics (0 to 5 Years) and At-Risk Patients (6 to 64 Years) (1 - PCV) [facility] Start: 1981 MMR Vaccines (1 of 1 - Standard series) MMR Vaccines (1 of 1 - Standard series) [facility] Start: 1981 Varicella vaccination Varicell a Vaccines (1 of 2 - 2-dose childhood series) [facility] Start: 1981 Varicella vaccine (1 of 2 - 2-dose childhood series) Varicella vaccine (1 of 2 - 2-dose childhood series) [facility] [employer] Phone: Start: 1980 HEPATITIS B (1 of 3 - 3-dose series) HEPATITIS B (1 of 3 - 3-dose series) [facility] Start: 1980 Hepatitis B Vaccine (1 of 3 - 3-dose series) Hepatitis B Vaccine (1 of 3 - 3-dose series) [facility] Start: 1980 Hepatitis B Vaccines (1 of 3 - 3-dose series) Hepatitis B Vaccines (1 of 3 - 3-dose series) [facility] Start: 1980 [facility]atitis C screening [facility] Work Phone: Start: 1980 HIV screening HIV Screening [facility] Start: 1980 Lipid panel Lipid Panel [facility] Start: 1980 Screening for osteoporosis Bone Density Scan [facility] Start: 1980 Yearly Adult Physical Yearly Adult P hycal [facility] Cardiovascular funct ion eval w/tilt table w/mntr TILT TABLE EVALUATION Cardiology Routine POTS (postural orthostatic tachycardia syndrome) Ordered: 03/09/2022 [facility] Work Phone: Comment on above: Ordered: 03/09/2022 End: 03-05-2024 DXA-AXIAL SKELETON DXA-AXIAL SKELETON Radiology Routine Steroid-induced osteoporosis 1 Occurrences starting 02/04/2023 until 03/05/2024 [facility] Work Phone: Comment on above: 1 Occurrences starti ng 02/04/2023 until 03/05/2024 End: 03-05-2024 DXA-FOREARM SKELETON DXA-FOREARM SKELETON Radiology Routine Steroid-induced osteoporosis 1 Occurrences starting 02/04/2023 until 03/05/2024 [facility] Work Phone: Comment on above: 1 Occurrences starti ng 02/04/2023 until 03/05/2024 ECG 12 Lead ECG 12 Lead ECG Routine Irregular heart rate 06/09/2023 8:28 AM EST [facility] Work Phone: End: 03-09-2023 HOME SLEEP APNEA TEST (HSAT) HOME SLEEP APNEA TEST (HSAT) Procedures Routine Somnolence, daytime Snoring 1 Occurrences starting 03/09/2022 until 03/09/2023 [facility] Work Phone: Comment on above: 1 Occurrences starti ng 03/09/2022 until 03/09/2023 Oxygen therapy [[facility] Data Set] Initiate Oxygen Therapy Protocol Respiratory Care Routine Daily until discontinued starting 10/07/2020 [facility] Work Phone: Comment on above: Daily until disconti nued starting 10/07/2020 End: 03-04-2023 Polysomnogram POLYSOMNOGRAM (PSG) Procedures Routine Somnolence, daytime Snoring 1 Occurrences starting 03/04/2022 until 03/04/2023 [facility] Work Phone: Comment on above: 1 Occurrences starti ng 03/04/2022 until 03/04/2023 [facility] Immunizations Immunization Date Immunization Notes Care Provider Fa cility 02-23-2023 COVID-19 vaccine, ag e 12+ yr, 2022- season ([employer]) Lynne Ni MD Work Phone: [facility] Payers Date Payer Category Payer Self-pay 2017 Unknown [employer] [id number] 2017-Present [address] [place] [address] [id number] 2009 Medicaid [employer] [id number] 2009-Present [phone] [address] [place] [address] Medicaid [id number] 2009 Medicaid [id number] 1980 Unknown [id number] [id number]5 1980 Unknown [id number] 2.16.840.1.814054.3.579.2.175 1980 Unknown [id number] 2.16.840.1.028474.3.579.2.593 1980 Unknown [id number] 2.16.840.1.038189.3.579.2.593 1980 Unknown [id number] 2.16.840.1.314719.3.579.2.59 1980 Unknown [id number] 2.16.840.1.236234.3.579.2.59 1980 Unknown [id number] 2.16.840.1.226543.3.579.2. 1980 Unknown [id number] 2.16.840.1.662145.3.579.2.59 1980 Unknown [id number] 2.16.840.1.704748.3.579.2.59 1980 Unknown [id number] 2.16.840.1.289367.3.579.2.59 1980 Unknown [id number] 2.16.840.1.214161.3.579.2. 1980 Unknown [id number] 2.16.840.1.712528.3.579.2.59 1980 Unknown [id number] 2.16.840.1.399113.3.579.2.1243 1980 Unknown [id number] 2.16.840.1.015057.3.579.2.1243 1980 Unknown [id number] 2.16.840.1.102943.3.579.2.1258 1980 Unknown [id number] 2.16.840.1.497351.3.579.2.1258 1980 Unknown [id number] 2.16.840.1.410909.3.579.2.1258 1980 Unknown [id number] 2.16.840.1.386137.3.579.2.1259 1980 Unknown [id number] 2.16.840.1.406499.3.579.2.1259 1980 Unknown [id number] 2.16.840.1.905202.3.579.2.1259 1959 Unknown [id number] 1959 Unknown [id number] Unknown [id number] 2.16.840.1.825016.3.579.2.531 Social History Date Type Detail Facility Start: 10-07-2020 End: 03-09-2022 Tobacco smoking status NHIS Current every day smoker [facility] Start: 10-07-2020 End: 03-09-2022 Tobacco use and exposure Never used [employer] Start: 10-07-2020 End: 07-13-2023 Alcohol intake Lifetime non-drinker (finding) [employer] Phone: Start: 10-07-2020 History SDOH Alcohol Frequency 1 [employer] Phone: Start: 1980 Sex Assigned At Not on file [email or web address] Phone: Start: 02-22-2022 End: 07-13-2023 Exposure to SARS-CoV-2 (event) Not sure Un[employer] History of tobacco use Cigarette Smoker C [facility] Start: 05-31-2014 End: 09-24-2022 Cigarettes smoked current (pack per day) - Reported 1 [facility] Start: 10-24-2021 End: 06-10-2023 Alcohol intake Current non-drinker of alcohol (finding) [facility] Start: 10-14-2021 End: 10-24-2021 Exposure to SARS-CoV-2 (event) Unable to assess [facility] Start: 09-24-2022 End: 10-22-2022 Sex Assigned At [facility] Adult Depression Screening Assessment 1 [facility] Start: 10-19-2022 Tobacco Comment Current smoker , everyday, 11-20 cigarettes/day [facility] Start: 05-31-2023 Alcohol Comment Caffeine intak e : > 4 cups per day [facility] Clinical Notes 05-31-2014 to 07-13-2023 Margret Cuenca - 07/13/2023 12:01 PM Olamide Holm MD - 07/13/2023 9:30 AM ESTPatient Beverley Richardson MD - 07/06/2023 2:30 PM Licha Britton, SPA ASSOCIATE-AIR DRILL OPERATOR - 06/09/2023 8:30 AM EST Note Date & Type Note Facility 07-13-2023 Note [facility] 07-13-2023 Nurse Note Patient Identification confirmed: yes. Injection given and documented on JUL per provider order. Margret Cuenca documented in this encounter [facility] 07-13-2023 History of Present illness Narrative Cardiology Consultation- New Consult Reason for referral: Palpitations HPI: Jones Haley is a 42 y.o. female who is being seen in the office for the first time to assess symptoms of chest tightness and palpitation. She was diagnosed with systemic lupus several years ago and is being cared for at the [facility] utilizing steroids, Plaquenil and injectable medication(Benlystal). The patient record indicating having had cardiac catheterization in [place] 3 years ago which was normal. I have the report available for my review. Recently had an echocardiogram at [facility] which was unremarkable and had event monitor which was remarkable for a short run of SVT for 7 beats heart rate 186 bpm. There was occasional PACs and PVCs but no complex arrhythmias. She has no history of syncope or presyncope. Patient has been gaining weight while she is on medical therapy for lupus which led to feelings of tightness across her upper abdomen specially when she bends forward. She also noticed mild lower extremity edema. She had no syncope. No febrile illnesses or infections. She does have sleep apnea on CPAP machine. Patient unfortunately also is a smoker. She has no orthopnea PND and no chest pain on exertion. EKG revealed normal sinus rhythm with no abnormalities. Assessment/recommendations: 1-dyspnea that is not cardiac in origin. It is likely caused by her weight, sleep apnea and the medicine she is on for systemic lupus. She had normal cardiac catheterization, normal echocardiogram in the last 3 years. Lifestyle changes to lose weight were recommended 2-history of tachycardia partly related to SVT which was brief based on recent monitor and would require no specific therapy beyond the beta-judie she is presently on and avoiding caffeine tobacco and stress. 3-tobacco abuse, was counseled for the need on tobacco cessation 4-systemic lupus being treated by rheumatology at the [facility] on steroids, Plaquenil and monoclonal antibody 5-sleep apnea on CPAP machine 6-morbid obesity, education to lose weight were discussed with the patient especially in view of the need for constant steroid therapy. 7-lower extremity edema likely caused by her weight and steroid therapy, inconsequential and would not require medical therapy. Past Medical History: She has no past medical history on file. Surgical History: She has no past surgical history on file. Family History: No family history on file. Social History: Social History Tobacco Use Smoking status: Every Day Packs/day: 1 Types: Cigarettes Smokeless tobacco: Never Substance Use Topics Alcohol use: Never Allergies: Doxycycline and Sulfamethoxazole-trimethoprim Current Medications: Current Outpatient Medications: acetaminophen (Tylenol) 500 mg tablet, Take 2 tablets (1,000 mg) by mouth every 8 hours if needed for mild pain (1 - 3), moderate pain (4 - 6), headaches or fever (temp greater than 38.0 C)., Disp: , Rfl: aspirin 81 mg chewable tablet, Chew 1 tablet (81 mg) once daily., Disp: , Rfl: azaTHIOprine (Imuran) 50 mg tablet, Take 3 [...] , Rfl: ergocalciferol (Vitamin D-2) 1.25 MG (29931 UT) capsule, Take 1 capsule (50,000 Units) by mouth 1 (one) time per week., Disp: , Rfl: fluocinonide (Lidex) 0.05 % external solution, Apply topically once daily. apply to affected area on scalp topically qd-bid prn for 30 day(s), Disp: , Rfl: folic acid (Folvite) 1 mg tablet, Take 1 tablet (1 mg) by mouth once daily., Disp: , Rfl: hydroxychloroquine (Plaquenil) 200 mg tablet, Take 1 tablet (200 mg) by mouth 2 times a day., Disp: , Rfl: ibuprofen 200 mg tablet, Take 3 tablets (600 mg) by mouth every 8 hours if needed., Disp: , Rfl: metoprolol tartrate (Lopressor) 50 mg tablet, Take 2 tablets by mouth twice a day., Disp: , Rfl: montelukast (Singulair) 10 mg tablet, Take 1 tablet (10 mg) by mouth once daily at bedtime., Disp: , Rfl: predniSONE (Deltasone) 10 mg tablet, Take 1 tablet (10 mg) by mouth once daily., Disp: , Rfl: pregabalin (Lyrica) 75 mg capsule, Take 1 capsule (75 mg) by mouth 3 times a day., Disp: , Rfl: topiramate (Topamax) 25 mg tablet, Take 1 tablet (25 mg) by mouth twice a day., Disp: , Rfl: triamcinolone acetonide 0.025 % lotion, 1 Application., Disp: , Rfl: Vitals: Vitals: 07/13/23 0941 07/13/23 0945 07/13/23 1001 BP: 98/70 90/70 105/65 BP Location: Left arm Left arm Patient Position: Sitting Standing Pulse: 71 Weight: 127 kg (280 lb) Height: 1.702 m (5' 7 ) Review of Systems Cardiovascular: Positive for chest pain and palpitations. Respiratory: Positive for shortness of breath. Neurological: Positive for dizziness. Objective Physical Exam Constitutional: Appearance: Normal appearance. She is normal weight. HENT: Nose: Nose normal. Neck: Vascular: No carotid bruit. Cardiovascular: Rate and Rhythm: Normal rate. Pulses: Normal pulses. Heart sounds: Normal heart sounds. Pulmonary: Effort: Pulmonary effort is normal. Abdominal: General: Bowel sounds are normal. Palpations: Abdomen is soft. Genitourinary: Rectum: Normal. Musculoskeletal: General: Normal range of motion. Cervical back: Normal range of motion. Right lower leg: No edema. Left lower leg: No edema. Skin: General: Skin is warm and dry. Neurological: General: No focal deficit present. Mental Status: She is alert. Psychiatric: Mood and Affect: Mood normal. Behavior: Behavior normal. Thought Content: Thought content normal. Judgment: Judgment normal. Assessment and Plan: 1. Shortness of breath Follow Up In Cardiology 2. Paroxysmal supraventricular tachycardia Follow Up In Cardiology ECG 12 Lead 3. PAC (premature atrial contraction) Follow Up In Cardiology ECG 12 Lead 4. Current smoker 5. Systemic lupus erythematosus, unspecified SLE type, unspecified organ involvement status (CMS/HCC) 6. Palpitations 7. Obstructive sleep apnea syndrome 8. Morbid obesity (CMS/HCC) 9. Bilateral lower extremity edema EKG done in office today Scribe Attestation By signing my name below, abril Dorantes Scribe attest that this documentation has been prepared under the direction and in the presence of Lois Holm MD. Provider Attestation - Scribe documentation All medical record entries made by the Scribe were at my direction and personally dictated by me. I have reviewed the chart and agree that the record accurately reflects my personal performance of the history, physical exam, discussion and plan. documented in this encounter [facility] Work Phone: 07-13-2023 Instructions Lila Tejeda LPN - 07/13/2023 9:30 AM EST BMI was above normal measurement. Current weight: 127 kg (280 lb) Weight change since last visit (-) denotes wt loss -4 lbs Weight loss needed to achieve BMI 25: 120.7 Lbs Weight loss needed to achieve BMI 30: 88.9 Lbs Provided instructions on dietary changes Provided instructions on exercise Advised to Increase physical activity.Please bring all medicines, vitamins, and herbal supplements with you when you come to the office. Follow up one year Same medications. Prescriptions will not be filled unless you are compliant with your follow up appointments or have a follow up appointment scheduled as per instruction of your physician. Refills should be requested at the time of your visit. documented in this encounter [facility] Work Phone: 07-06-2023 History of Present illness Narrative Subjective [...] , Rfl: ergocalciferol (Vitamin D2) 1.25 MG (68912 UT) capsule, Take 50,000 Units by mouth [...] Chronic laryngopharyngitis COVID-19 vaccine administered x 2 (Connecture) History of removal of cyst 2013 tailbone [...] reflexes: Stu's absent. Ankle clonus absent. Coordination Owrhiy-cg-pdqc, rapid alternating movements and xnge-mi-ghbz normal bilaterally without dysmetria. Gait Normal casual, toe, heel and tandem gait. Romberg is absent. Assessment/Plan Diagnoses and all orders for this visit: Autoimmune disease (CMS/HCC) - Protein electrophoresis, serum; Future - Protein [...] for 10 days. documented in this encounter [facility] 06-15-2023 Note [facility] 06-10-2023 Note [facility] 06-09-2023 History of Present illness Narrative Jones Haley is a 42 y.o. female that presents to the office today for new patient evaluation as self referral for palpitations and elevated heart rates. She has a PMH of HTN, HLD, tachycardia, anemia, JOSE RAFAEL with CPAP compliance, lupus, autonomic dysfunction, arthritis, chronic back pain. She has undergone cardiac workup in the past in [place] as noted below. She also states that she follows with Neurology for possible POTS syndrome. Admits to daily tobacco use, 1 pack of cigarettes per day. Denies vaping, ETOH, recreational drugs. Admits to drinking approximately 1 pot of coffee per day. Denies daily exercise. 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 Family history negative [...] , Rfl: ergocalciferol (Vitamin D-2) 1.25 MG (14206 UT) capsule, Take 1 capsule (50,000 Units) [...] Obesity, Class III, BMI 40-49.9 (morbid obesity) ([facility]/HCC) Obstructive sleep apnea syndrome Arthritis Tachycardia Vitamin [...] prepare this document. documented in this encounter [facility] Work Phone: 06-01-2023 Note [facility] 05-26-2023 Note [facility] 05-26-2023 Instructions Christie Phan MD - 05/26/2023 5:43 PM EST Images from the original note were not included. https://Mirantis/tofu-bolognese/ https://nutritionstudies.org/how- jr-ighatlskb-drjtazvc-to-adopt-a- wsumr-tjre-mjybw-based-lifestyle/ https://www.Zenph.Breezy Gardens /blog/plantbasedkids https://LikeList.com/randee ck-iwpbw-xafk-for-kids/ https://MediSapiens.[place]reezy Gardens/how-to- ezdfcairga-ihan-avsx-yb-s-bxfqe-b ased-diet/ WHAT TO EAT? Breakfast: Overnight Oats [...] oatmeal. Can also make in the crockpot. Andorran muffin/almond butter topped with fresh berries Andorran muffin, cooked egg/egg white, tomato, thin slice tristanian cheese Fresh berries, hard boiled egg, whole wheat toast Plain yogurt topped with berries, unsalted nuts, drizzle of honey Whole grain toast/Andorran muffin topped with mashed avocado and tomatoes Lunch: Dinner leftovers packed in Tupperware, side of fruit Salad mixture topped with a protein (chick breast/tuna/hard boiled egg/beans), dressing and side of fruit Dinner - Refer to plate cyber intel planner pictures to help select foods and portion ratios of protein, vegetables/starches. Keep it simple and rotate your favorite meals. Sheet nix meals Soups Grilled protein/vegetables/side of starch (plate cyber intel planner picture) Stir can with protein, mixed vegetables, and riced cauliflower or portion controlled whole grain rice. Make your own bowls - Hebrew/Kuwaiti/ theme [place] with Zoodles (spiralized vegetable noodles). Roasted vegetable wraps Alter traditional recipes to reflect HIGH QUALITY ingredients in the right QUANTITIES. Snacks - portion controlled: Raw veggies (can have with hummus, mashed avocado, salsa). Unsalted nuts Fruit (1 serving). (optional side of peanut butter) Air pop popcorn [place] and low fat tristanian cheese rolled up String cheese Protein balls (mix rolled oats, nut butter, flax seeds, dash almond milk). Beverages: Water Coffee, Hot tea Unsweetened ice tea EATING OUT: Research menu online, include nutritional information. Make your order decision before getting to restaurant. Stick to recommended portions (plate cyber intel planner picture). Ask for substitutions or modifications. [...] baked potato, sprouted grain bread, chick peas https://www.MediBeacon/articl e/8063283/pevwqszuilodd-fkxm-atzg -for-beginners/ https://www.SafetyWeb.Breezy Gardens/catego ry/4274/olqazbntxaiin-fcub-rldolh / https://www.SafetyWeb.Breezy Gardens/catego ry/4300/oqrdzyesbiwxo-wxhu-noaf-p lans/ My current favorite cookbooks are documented in this encounter [facility] 05-26-2023 History of Present illness Narrative Images from the original note were not included. [facility] Follow-Up Appointment [...] the date of the service which included hsnu-zx-qcwm patient care, completing clinical documentation, performing a medically appropriate examination, counseling and educating the patient/family/caregiver, and ordering medications, tests, or procedures. Christie Phan MD, MA, [facility] Lifestyle Medicine Specialist documented in this encounter [facility] 05-19-2023 Note [facility] 04-26-2023 Note [facility] 04-26-2023 Miscellaneous Notes Medication pending with new pharmacy information. documented in this encounter [facility] 04-26-2023 History of Present illness Narrative Images from the original note were not included. [facility] Virtual Follow-Up [...] the date of the service which included hthm-wt-qews patient care, completing clinical documentation, performing a medically appropriate examination, counseling and educating the patient/family/caregiver, and ordering medications, tests, or procedures. I have communicated my name and active licensure. The patient's identity and physical location were verified at the time of this visit. Either the patient or their legal jewelry sales representative has been informed of the risks and benefits of -- and alternatives to -- treatment through a remote evaluation and consents to proceed with the evaluation remotely. Christie Phan MD, MA, [facility] Lifestyle Medicine Specialist documented in this encounter [facility] 04-26-2023 Note [facility] 04-26-2023 Nurse Note Spoke to Jones Haley, confirmed patient is registered on LineHop and is prepared for their appointment. Confirmed the patient has updated medications, allergies, and questionnaires via LineHop. Informed patient if there is an issue with the connection, provider will send the patient a secure link. If provider is running late, patient should remain connected to the visit. Patient verbalized understanding. documented in this encounter [facility] 04-22-2023 Miscellaneous Notes Pt called for Iron results; possible need for transfusion. Pt aware no need for iron infusion at this time. Enma Hamm RN documented in this encounter [facility] 04-16-2023 Note [facility] 04-16-2023 Note HNO ID: [id number] Author: Kenzie Shannon Service: ? Author Type: ? Type: Progress Notes Filed: 04/16/2023 11:10 AM Note Text: Patient Identification confirmed: yes. Injection given and documented on MAR per provider order. Kenzie Shannon [facility] 04-16-2023 History of Present illness Narrative Patient Identification confirmed: yes. Injection given and documented on MAR per provider order. Kenzie Shannon documented in this encounter [facility] 04-01-2023 Note [facility] 03-19-2023 Note HNO ID: [id number] Author: Kenzie Shannon Service: ? Author Type: ? Type: Progress Notes Filed: 03/19/2023 11:22 AM Note Text: Patient Identification confirmed: yes. Injection given and documented on MAR per provider order. Kenzie Shannon [facility] 03-19-2023 History of Present illness Narrative Patient Identification confirmed: yes. Injection given and documented on JUL per provider order. Kenzie Shannon documented in this encounter [facility] 03-16-2023 Note [facility] 03-16-2023 History of Present illness Narrative CMN RECEIVED BY [employer] VIA FAX, COMPLETED, AND PLACED IN PROVIDER MAILBOX FOR SIGNATURE On March 16, 2023 By Marija Ziegler Lard Renderer II. Letyano SENDING CMN: JOSH SIGNED AND DATED CMN, FAXED TO DME & CONFIRMATION PAGE RECEIVED: 03.24.23 documented in this encounter [facility] 03-11-2023 Note [facility] 03-11-2023 History of Present illness Narrative AMBULATORY [...] In Department: RHEUMATOLOGY documented in this encounter [facility] 03-10-2023 Miscellaneous Notes Spoke with patient. We stopped her trulicity because of side effects. She only took the cymbalta for a week. She will restart and we will see how she is doing in 2 months. Have also ordered insulin labs to check for insulin resistance. documented in this encounter [facility] 03-01-2023 Miscellaneous Notes For chart: Eye exam 02/26/23 no ocular complication related to medication. Received eye exam from [facility] Placed on your desk for review. documented in this encounter [facility] 02-19-2023 Note [facility] 02-19-2023 Nurse Note Patient Identification confirmed: yes. Injection given and documented on JUL per provider order. Radha Schofield MA documented in this encounter [facility] 02-19-2023 Instructions Jose Najera MD - 02/19/2023 11:40 AM EDT B12 shot today and every 4 weeks. Continue Folic acid. Follow up in 8 Weeks - labs 1 week before. documented in this encounter [facility] 02-19-2023 History of Present illness Narrative Images from the original note were not included. AMBULATORY TELEPHONE VISIT Jones Haley has consented to this telephone encounter. Persons Present: Patient and myself Chief Complaint/Reason: Anemia; To review recent blood work. HPI: Total Time Spent: 21 minutes Wilmer Driver APRN.AIR DRILL OPERATOR NAME: Jones Haley [facility] NO.: [id number] DATE OF SERVICE: February 19, 2023 ([place]) Some elements in this clinic note that are critical to medical decision making have been carefully reviewed and included from a prior clinic note dated: December 17, 2022 ([place]) & October 22, 2022 ([place]) Referring Provider: [...] Updated Visit, December 17, 2022: Virtual visit ([place]) Patient had requested that this visit be [...] lower lip done 2 days ago at [facility] - awaiting results. B12 helps especially at [...] She follows with multiple doctors including and stonecutter apprentice hand, ferryboat operator helper, automatic equipment technician and PCP. She has been told they [...] which included preparing to see the patient, ftpw-ve-nxzk patient care, completing clinical documentation, performing a medically appropriate examination, counseling and educating the patient/family/caregiver, ordering medications, tests, or procedures, and independently interpreting results (not separately reported). Jose Najera MD, CPE Hematology [facility] Oncology Services Provided at: [place], [place] CC: Madelaine Ferris MD [facility] [address] documented in this encounter [facility] 02-16-2023 Miscellaneous Notes Notify patient medication sent [...] RAYRAY INJECTION TEACHING 03/11/2023 7:30 AM [facility] MEG VIDEO SPEC EST 08/12/2023 9[facility] Last Ophthalmology Check for [...] Vitamin D deficiency documented in this encounter [facility] 02-08-2023 Miscellaneous Notes Spoke with patient Will get labs done when she does labs in Dec for Dre/Onc Mailed orders for DXA to pt so she can go to [facility] Pre cert Benlyst Scheduled Teaching visit for 4 weeks out to give time for ins and to receive medication. Will edison if not auth or received Scheduled [address] Ni in 6 mo Mirela Carlos February 08, 2023 11:15 AM Please call and schedule nonfasting labs 04/2023 Due for bone mineral density (1st time) patient requests order for [place] Please schedule follow up office visit for [...] Lynne Ni MD documented in this encounter [facility] 02-04-2023 Note [facility] 02-04-2023 Note [facility] 02-04-2023 Note [facility] 02-04-2023 Note [facility] 02-04-2023 Note [facility] 02-04-2023 History of Present illness Narrative [facility] received prescription(s) for Benlysta from Dr. Ni. Benefits investigation was conducted, indicating that a prior authorization is required by patients plan with [facility]. Encounter will be updated once prior authorization has been submitted by [facility]. Carlene Rendon CPhT [facility], Inflammatory P: [phone] F: [phone] documented in this encounter [facility] 02-04-2023 History of Present illness Narrative THIS [...] visit. Either the patient or their legal jewelry sales representative has been informed of the risks [...] neurology/on metoprolol for POTs, avoid aggravating triggers, [employer] continuous churn pain recommendations per primary care provider/pain clinic/patient [...] lyrica 75mg 3times a day. Reports pain 4-810. Couple hrs AM stiffness. COVID vaccine Pfizer [...] COVID-19 original vaccine, age 12+ yr, monovalent ([place] - PURPLE TOP) 09/28/2020 10/19/2020 05/26/2021 COVID-19 vaccine, age 12+ yr, bivalent ([place]) 02/08/2022 Pneumovax no Flu shot no Tetanus [...] (33);NL cbc, cmp, negative hla b27; Outside [place] 06/2021 low vitamin D 16, vitamin b12-307;high [...] rate M25.531, M25.532 Bilateral wrist pain Z79.52 watermelon inspector 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 M81.8, T38.0X5A [...] wrists worse in last 2weeks. Reports pain 10. Has 10min minimal AM stiffness. Fevers off [...] and concerns, patient voiced understanding. RECOMMENDATION/PLAN: [facility] on 02/04/23 DXA-AXIAL SKELETON DXA-FOREARM SKELETON [...] (200mg) daily with a meal Please see cras every 6-12months while on Hydroxychloroquine. Start 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 [...] video & audio (virtual) or phone or cetu-ym-qwju patient care, completing clinical documentation, obtaining and/or [...] cc Gay Enciso CNP;Dr.Douglas Sai Ferris MD [facility] AMBULATORY VISIT INTAKE QUESTIONNAIRE Question 02/02/2023 10:32 [...] Workers' Compensation? No Do you need an surgical rn? No [facility] MYCHART ZOOM MESSAGE Question 02/02/2023 10:32 PM EDT - Filed by Patient Install Zoom I have Zoom installed CC PROMIS CAT V2.0-PHYSICAL FUNCTION-28 DAYS Question 02/02/2023 [...] Yes Memory Loss: No Swollen Glands: Yes [facility] QUESTIONNAIRE Question 02/02/2023 10:38 PM EDT [...] or = 5) documented in this encounter [facility] 02-04-2023 Instructions Lynne Ni MD - 02/04/2023 [...] (200mg) daily with a meal Please see cras every 6-12months while on Hydroxychloroquine. 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 daily [...] usual activities immediately. documented in this encounter [facility] 01-26-2023 Miscellaneous Notes patient has viewed the eSolar message per [employer]. Please Call patient if LineHop note not read to review results/released to My Chart if tests completed at F: mildly high normal wbc- will monitor. Mildly [...] Lynne Ni MD documented in this encounter [facility] 01-22-2023 Nurse Note Patient Identification confirmed: yes. Injection given and documented on JUL per provider order. Radha Schofield MA documented in this encounter [facility] 01-12-2023 Miscellaneous Notes Patient needs appointment before I can refill. Patient's request for medication is as follows: Requested Prescriptions Pending Prescriptions Disp Refills dulaglutide (TRULICITY) 1.5 mg/0.5 mL pen injector 2 mL 0 Sig: Inject 1.5 mg subcutaneously one time a week. Please approve the above prescription(s) to electronically send to [facility] pharmacy. Milagro Mendiola MA documented in this encounter [facility] 01-01-2023 Note [facility] 01-01-2023 History of Present illness Narrative VIRTUAL VISIT PROGRESS NOTE This is a virtual visit using LineHop video visit. It required patient-provider interaction for the medical decision making as documented below. I have communicated my name and active licensure. The patient's identity and physical location were verified at the time of this visit. Either the patient or their legal jewelry sales representative has been informed of the risks [...] otitis or sinusitis No pneumonia She sees ferryboat operator helper and was diagnosed with lupus She is on Plaquenil, 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 Prednisone 10mg once daily for the past year; every few months she gets treated with higher doses of prednisone for flares of her symptoms The medications seem to help the body aches She saw the developer relations manager Treated with B12 and folic acid We [...] Misty Nelson MD documented in this encounter [facility] 12-18-2022 Note [facility] 12-18-2022 Miscellaneous Notes Spoke with patient this morning, 12/18/2022. Wilmer Driver APRN.AIR DRILL OPERATOR Pt called aircraft air conditioning mechanic service last evening stating she was suppose to have a phone call with Wilmer at 330 and never received a call. Pt is still waiting (536 pm 12/17/22). Please advise Lidia Argueta RN documented in this encounter [facility] 12-18-2022 History of Present illness Narrative Images [...] Total Time Spent: 21 minutes Wilmer Driver APRN.AIR DRILL OPERATOR NAME: Jones Haley CLINIC NO.: [id number] DATE OF SERVICE: October 22, 2022 ([place]) Some elements in this clinic note that are critical to medical decision making have been carefully reviewed and included from a prior clinic note dated: August 27, 2022 ([place]) Referring Provider: Dr. Madelaine Ferris Additional Clinicians [...] lower lip done 2 days ago at [facility] - awaiting results. B12 helps especially at [...] She follows with multiple doctors including and stonecutter apprentice hand, ferryboat operator helper, automatic equipment technician and PCP. She has been told they [...] which included preparing to see the patient, lqjq-sw-kvtf patient care, completing clinical documentation, performing a medically appropriate examination, counseling and educating the patient/family/caregiver, ordering medications, tests, or procedures, and independently interpreting results (not separately reported). Jose Najera MD, CPE Hematology and Oncology Services Provided at: [place], [place] CC: Madelaine Ferris MD [address] [facility] [address] documented in this encounter [facility] 12-16-2022 Miscellaneous Notes Pt notified and verbalizes understanding. Clerical: Please change tomorrow's appointment to a phone visit at the end of Wilmer's day. Preferred number is [phone]. In addition, pt will be in next 12/25/22 @ 1130 for her B12 shot. Please add her to the MA schedule. Thanks! Pamella Bettencourt RN That would be okay. Have her added at the end of the day. Thanks, Wilmer Driver APRN.AIR DRILL OPERATOR Pt is scheduled for RV w/ Wilmer & B12 tomorrow. She would like to make this a telephone appointment instead and come back next week for B12. Pt had her labs drawn last week. Wilmer: Any objections to meeting w/ pt over the phone tomorrow or would you prefer we switch her to [place]'s schedule? Pamella Bettencourt RN documented in this encounter [facility] 12-13-2022 Miscellaneous Notes No clinical utility or [...] Enma Hamm RN documented in this encounter [facility] 11-24-2022 Miscellaneous Notes Please call patient Thank [...] Lynne Ni MD documented in this encounter [facility] 11-19-2022 Nurse Note Patient Identification confirmed: yes. Injection given and documented on JUL per provider order. Margret Cuenca documented in this encounter [facility] 10-29-2022 Note [facility] 10-22-2022 Note [facility] 10-22-2022 Nurse Note Patient Identification confirmed: yes. Injection given and documented on JUL per provider order. Stacy Gutiérrez Ma documented in this encounter [facility] 10-22-2022 Instructions Jose Najera MD - 10/22/2022 11:43 AM EDT B12 Shot today and every 4 weeks. Continue Folic acid. Follow up in 8 Weeks - labs 1 week before. documented in this encounter [facility] 10-22-2022 History of Present illness Narrative Images from the original note were not included. NAME: Jones Haley CLINIC NO.: [id number] DATE OF SERVICE: October 22, 2022 ([place]) Some elements in this clinic note that are critical to medical decision making have been carefully reviewed and included from a prior clinic note dated: August 27, 2022 ([place]) Referring Provider: Dr. Madelaine Ferris Additional Clinicians involved in Jones Torres Tera's care: DIAGNOSIS: Multiple symptoms ASSESSMENT: 42 year [...] lower lip done 2 days ago at [facility] - awaiting results. B12 helps especially at [...] She follows with multiple doctors including and stonecutter apprentice hand, ferryboat operator helper, automatic equipment technician and PCP. She has been told they [...] which included preparing to see the patient, yppy-mt-utab patient care, completing clinical documentation, performing a medically appropriate examination, counseling and educating the patient/family/caregiver, ordering medications, tests, or procedures, and independently interpreting results (not separately reported). Jose Najera MD, CPE Hematology and Oncology Services Provided at: [place], [place] CC: Madelaine Ferris MD [address] [facility] [address] documented in this encounter [facility] 09-24-2022 Nurse Note Patient Identification confirmed: yes. Injection given and documented on JUL per provider order. Stacy Gutiérrez Ma documented in this encounter [facility] 09-11-2022 Note HNO ID: [id number] Author: Joselito Joshi Service: ? Author Type: ? Type: Progress Notes Filed: 09/11/2022 9:10 AM Note Text: Called patient and patient stated she will call back and schedule. Joselito Joshi [facility] 09-08-2022 Miscellaneous Notes Pharmacy-Reviewed Medication History Patient Name:.Jones Haley : 1980 Patient Contact Attempt: First attempt Adherence Packing Program Accepted? No, patient does not wish to participate. Patient is not eligible for adherence packaging because PCP is not within [facility]. Patient wishes to continue at [facility] since medication bottles will look the same and then she can pick-up the medications when she needs them. Stacy Hernandez September 08, 2022 2:28 PM [facility] [phone] documented in this encounter [facility] 09-07-2022 Note [facility] 09-07-2022 History of Present illness Narrative Images from the original note were not included. [facility] Virtual Follow-Up [...] which included preparing to see the patient, fxaa-dv-tced patient care, completing clinical documentation, performing a medically appropriate examination, counseling and educating the patient/family/caregiver, ordering medications, tests, or procedures, and communicating with other HCPs (not separately reported). I have communicated my name and active licensure. The patient's identity and physical location were verified at the time of this visit. Either the patient or their legal jewelry sales representative has been informed of the risks and benefits of -- and alternatives to -- treatment through a remote evaluation and consents to proceed with the evaluation remotely. Christie Phan MD, MA, [facility] Lifestyle Medicine Specialist documented in this encounter [facility] 09-07-2022 Nurse Note Called pt to do intake for video visit pt unavailable lft vm msg sent my chart. Milagro Mendiola MA documented in this encounter [facility] 08-31-2022 Miscellaneous Notes called [facility] pharmacy - pharmacy had 1 refill remaining no action needed from our office documented in this encounter [facility] 08-27-2022 Note [facility] 08-27-2022 Nurse Note Patient Identification confirmed: yes. Injection given and documented on JUL per provider order. Stacy Gutiérrez Ma documented in this encounter [facility] 08-27-2022 History of Present illness Narrative Images from the original note were not included. NAME: Jones Haley CLINIC NO.: [id number] DATE OF SERVICE: August 27, 2022 ([place]) Some elements in this clinic note that are critical to medical decision making have been carefully reviewed and included from a prior clinic note dated: May 20, 2022. (Dr. Najera) Referring Provider: Dr. Madelaine Ferris Additional Clinicians involved in Jonessusan Haley's care: DIAGNOSIS: Multiple symptoms ASSESSMENT: 41 [...] She follows with multiple doctors including and stonecutter apprentice hand, ferryboat operator helper, automatic equipment technician and PCP. She has been told they [...] Father stomach other (Crohn's [Other]) Mother Wilmer Driver, SPA ASSOCIATE.[facility] Hematology and Oncology Services Provided at: [place], [place] CC: Madelaine Ferris MD [address] [facility] [address] I spent a total of 30 minutes on the date of the service which included preparing to see the patient, rcki-qm-[id number] patient care, completing clinical documentation, obtaining and/or reviewing separately obtained history, performing a medically appropriate examination, counseling and educating the patient/family/caregiver, ordering medications, tests, or procedures, independently interpreting results (not separately reported), and communicating results to the patient/family/caregiver. documented in this encounter [facility] 08-19-2022 Miscellaneous Notes -noted MyChart message read by patient 08/19/22 . Last read by Jones Haley at 3:33 PM on 08/19/2022 Please Call patient if MyChart note not read to review results/released to My Chart if tests completed at [facility]: Improved/ mildly high normal inflammatory test- will monitor. Improved/mildly low vitamin b12- take over the counter 0804-2499 mcg daily. Improved/ normal rest of rheum [...] Lynne Ni MD documented in this encounter [facility] 08-18-2022 Miscellaneous Notes MC read by patient. [...] Lynne Ni MD documented in this encounter [facility] 08-10-2022 Miscellaneous Notes [facility] requesting refill, patient never started according to the chart and I have not seen her in follow-up. [facility] Pharmacy request for the following refill(s): Requested Prescriptions Pending Prescriptions Disp Refills DULoxetine (CYMBALTA) 20 mg capsule [Pharmacy Med Name: DULOXETINE HCL DR 20 MG CAP] 30 capsule 2 Sig: TAKE 1 CAPSULE BY MOUTH ONCE DAILY Please review and advise. Jami Everett Cma documented in this encounter [facility] 07-27-2022 Instructions Timmy Heck APRN.TRUE - 07/27/2022 9:12 PM EST Images from the original note were not included. Your most recent body mass index (BMI) that we have on record is 40.56 kg/m2. Obstructive sleep apnea (JOSE RAFAEL) worsens with an increase in weight; reduction in weight may improve or resolve your JOSE RAFAEL. If you are not already seeking treatment, there are resources available at the [facility] such as a nutrition consultation or referral to weight management programs at our [facility]. Please let us know if we can [...] the central scheduling system for the [facility] at [phone]. [facility] now offers direct scheduling for patients to schedule appointments. Virtual visits are also available. If not covered by your insurance, there is a 35% discount. Please contact your insurance to determine coverage. Call the office at [phone], option #5 for questions. documented in this encounter [facility] 07-27-2022 Note [facility] 07-27-2022 History of Present illness Narrative Images from the original note were not included. [facility] Virtual Visit Follow up/ [...] will have a prescription sent to a [employer]) company - [employer] who will be calling you in the next 1-2 weeks or so. Please call them directly or us if you do not hear from them in this time frame. - Will request formal mask fitting - You should be eligible for new supplies approximately every 3-6 months, depending on your insurance coverage. - If your mask doesn't fit well, call the [employer] company before 30 days are up to [...] to ensure the best time for you. [facility] on 04/13/22 CONSULT TO SLEEP MEDICINE - ADULT CPAP/BIPAP/OTHER PAP THERAPY ORDER Lawanda Miranda MD Interval history : Here for follow up for sleep apnea management. SLEEP APNEA Sleep apnea type : JOSE RAFAEL Most Recent Apnea-Hypopnea Index (AHI): 5.3 Treatment : PAP therapy DME: Josh Reese DME fax: [phone] DME ph: [phone] PAP History: Current PAP settin-15 cm H2O. [...] or near accidents due to drowsy drivin [place] Sleepiness Scale 04/12/2022 07/23/2022 Score 4 (No [...] tests, or procedures. documented in this encounter [facility] 07-24-2022 Miscellaneous Notes Patient called today. : [...] patient specific tasks. documented in this encounter [facility] 07-22-2022 Miscellaneous Notes MyChart message sent documented in this encounter [facility] 05-20-2022 History of Present illness Narrative Patient Identification confirmed: yes. Injection given and documented on JUL per provider order. Kenzie Shannon documented in this encounter [facility] 05-20-2022 Miscellaneous Notes Addended by: JOSE NAJERA on: 05/20/2022 02:27 PM Modules accepted: Orders documented in this encounter [facility] 05-20-2022 Instructions Jose Najera MD - 05/20/2022 2:23 PM EST B12 Shot Today and every 4 weeks Get fit for CPAP mask and setting this 05/28/2021 Continue Folic acid. RTC in 8 Weeks - labs 1 week before. documented in this encounter [facility] 05-20-2022 History of Present illness Narrative Images from the original note were not included. NAME: Jones Haley CLINIC NO.: [id number] DATE OF SERVICE: May 20, 2022 ([place]) Some elements in this clinic note that are critical to medical decision making have been carefully reviewed and included from a prior clinic note dated: March 18, 2022 ([place]) Referring Provider: Madelaine Ferris Additional Clinicians involved in Jones De Pazlazarofrancisco javier's care: DIAGNOSIS: Multiple symptoms ASSESSMENT: 41 year [...] which included preparing to see the patient, [id number] patient care, completing clinical documentation, performing a medically appropriate examination, counseling and educating the patient/family/caregiver, ordering medications, tests, or procedures, and independently interpreting results (not separately reported). Jose Najera MD, [facility] Hematology and Oncology Services Provided at: [place], [place] CC: Jose Najera [address] [place] [address] [place] [address] Madelaine Ferris MD, [address] [place], [place] [id number] CC: Madelaine Ferris MD [address] [place], [place] [id number] documented in this encounter [facility] 05-05-2022 Miscellaneous Notes Faxed order, office notes, demographics, and sleep study to: DME name: Josh Reese [facility] fax: [phone] [facility]IOR ph: [phone] Confirmation received. documented in this encounter [facility] 05-05-2022 Miscellaneous Notes NXTMt message sent documented in this encounter [facility] 05-05-2022 Miscellaneous Notes [facility] received your PAP order. Due to a major [employer] recall and manufacturing shortage, we are unable to fulfill the request to provide your patient with a CPAP/BIPAP machine at this time. We will keep the request on file and provide when inventory is available or you can forward the order to another DME provider such as [facility], [employer] or [employer]. Caring for our patients is our top priority and we apologize for this delay. Thank you for your patience during this time. [phone] #1 documented in this encounter [facility] 04-24-2022 Miscellaneous Notes After review of Jones's referral, it was determined that the visit needed to be in person to allow for detailed physical exam for connective tissue disorder evaluation. I called today to discuss her concerns about in-person visit for connective tissue disorder evaluation. She did not report hypermobility, however, she noted that her allergy doctor has noted concern for EDS. Her ferryboat operator helper has told her that she has Lupus. Based on her history, I noted we can offer in-person evaluations for herself and/or her son to see if any genetic testing may be useful. I validated and provided support on the difficulty with her ambulation and transport concerns. I noted [facility] does not have other locations and only available at [facility]. I offered social work and/or transport assistance for the visit. She declined this and will discuss with her regarding the transport. She verbalized understanding the reasons for in-person evaluation recommended. She has the [facility] line and will call to reschedule for an in-person evaluation at [facility]. Luann Lance MD [employer] Developer, Associate Staff [facility] documented in this encounter [facility] 04-22-2022 Miscellaneous Notes Reached out to Jones [...] copy of the report. Confirmed patient's email [email or web address] Eliza Licea Genetic Counselor Cs Associate documented in this encounter [facility] 03-31-2022 Miscellaneous Notes [facility] pharmacy electronically requests the following refill(s) Requested Prescriptions Pending Prescriptions Disp Refills DULoxetine (CYMBALTA) 20 mg capsule [Pharmacy Med Name: DULOXETINE HCL DR 20 MG CAP] 30 capsule 2 Sig: TAKE 1 CAPSULE BY MOUTH ONCE DAILY Renate Lawrence MA documented in this encounter [facility] 03-30-2022 Miscellaneous Notes LVM and sent MyChart [...] Misty Nelson MD documented in this encounter [facility] 03-30-2022 Miscellaneous Notes LVM and sent MyChart regarding Dr. Nelson's directive. documented in this encounter [facility] 03-18-2022 Instructions Jose Najera MD - 03/18/2022 11:16 AM EDT Referral for sleep study pending Start on Folic acid. RTC in 8 Weeks - labs 1 week before. documented in this encounter [facility] 03-18-2022 History of Present illness Narrative Images from the original note were not included. NAME: lazarofrancisco javierJones [facility] NO.: [id number] DATE OF SERVICE: March 18, 2022 ([place]) Some elements in this clinic note that are critical to medical decision making have been carefully reviewed and included from a prior clinic note dated: March 04, 2022 ([place]) Referring Provider: Madelaine Ferris Additional Clinicians involved in Jones Melissa Haley's care: DIAGNOSIS: Multiple symptoms ASSESSMENT: 41 [...] which included preparing to see the patient, [id number] patient care, completing clinical documentation, performing a medically appropriate examination, counseling and educating the patient/family/caregiver, ordering medications, tests, or procedures, and independently interpreting results (not separately reported). Jose Najera MD, CPE Hematology and Oncology Services Provided at: [place], [place] CC: Madelaine Ferris MD [address] [facility] [address] documented in this encounter [facility] 03-10-2022 History of Present illness Narrative VIRTUAL VISIT PROGRESS NOTE This is a virtual visit using LineHop video visit. 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 [place] PCP is running the Holter and echo [...] but was not pursued yet Lives in [place] She did have LN biopsy in the [...] Misty Nelson MD documented in this encounter [facility] 03-09-2022 History of Past i llness Narrative Problem Noted Date Diagnosed Date Resolved Date Obesity, Class II, BMI 35-39.9 03/09/2022 03/10/2023 Obesity (BMI 30-39.9) 05/31/20142016 documented as of this encounter (statuses as of 03/10/2023) [facility] History of Past illness Narrative* Problem Noted Date Diagnosed Date Resolved Date Obesity, Class II, BMI 35-39.9 03/09/2022 03/10/2023 Obesity (BMI 30-39.9) 05/31/20142016 documented as of this encounter (statuses as of 03/11/2023) [address]17-2022 History of Past illness Narrative* Problem Noted Date Diagnosed Date Resolved Date Obesity, Class II, BMI 35-39.9 03/09/2022 03/10/2023 Obesity (BMI 30-39.9) 05/31/20142016 documented as of this encounter (statuses as of 03/19/2023) [address]17-2022 History of Past illness Narrative* Problem Noted Date Diagnosed Date Resolved Date Obesity, Class II, BMI 35-39.9 03/09/2022 03/10/2023 Obesity (BMI 30-39.9) 05/31/20142016 documented as of this encounter (statuses as of 03/24/2023) [address]17-2022 History of Past illness Narrative* Problem Noted Date Diagnosed Date Resolved Date Obesity, Class II, BMI 35-39.9 03/09/2022 03/10/2023 Obesity (BMI 30-39.9) 05/31/20142016 documented as of this encounter (statuses as of 04/16/2023) [address]17-2022 History of Past illness Narrative* Problem Noted Date Diagnosed Date Resolved Date Obesity, Class II, BMI 35-39.9 03/09/2022 03/10/2023 Obesity (BMI 30-39.9) 05/31/20142016 documented as of this encounter (statuses as of 04/23/2023) [address]17-2022 History of Past illness Narrative* Problem Noted Date Diagnosed Date Resolved Date Obesity, Class II, BMI 35-39.9 03/09/2022 03/10/2023 Obesity (BMI 30-39.9) 05/31/20142016 documented as of this encounter (statuses as of 04/27/2023) [address]17-2022 History of Past illness Narrative* Problem Noted Date Diagnosed Date Resolved Date Obesity, Class II, BMI 35-39.9 03/09/2022 03/10/2023 Obesity (BMI 30-39.9) 05/31/20142016 documented as of this encounter (statuses as of 04/27/2023) [facility] History of Past illness Narrative* Problem Noted Date Diagnosed Date Resolved Date Obesity, Class II, BMI 35-39.9 03/09/2022 03/10/2023 Obesity (BMI 30-39.9) 05/31/20142016 documented as of this encounter (statuses as of 05/31/2023) [facility] History of Past illness Narrative* Problem Noted Date Diagnosed Date Resolved Date Obesity, Class II, BMI 35-39.9 03/09/2022 03/10/2023 Obesity (BMI 30-39.9) 05/31/20142016 documented as of this encounter (statuses as of 07/13/2023) [facility] History of Past illness Narrative* Problem Noted Date Diagnosed Date Resolved Date Obesity, Class II, BMI 35-39.9 03/09/2022 03/10/2023 Obesity (BMI 30-39.9) 05/31/20142016 documented as of this encounter (statuses as of 07/13/2023) [facility] Instructions* Patient Instructions* Christie Phan MD - 03/09/2022 12:47 PM EDT Check EKG for prolonged QT. If normal, I would try going back on the Lexapro, can recheck an EKG inabout a month to make sure that things are going ok. (I'm leaving this, but we are changing to Cymbalta) Tilt Table Test [email or web address] documented in this encounterUniversity Hospitals Health System10-17-2022 History of Present illness Narrative* Christie Phan MD - 03/09/2022 12:08 PM EDT Images from the original note were not included. 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 documented in this encounterUniversity Hospitals Health System10-14-2022 Miscellaneous Notes* Telephone Encounter - Krista Braswell MA - 03/06/2022 7:08 AM EDT Pt was notified via . * Telephone Encounter - Lynne Ni MD - 03/05/2022 5:56 PM EDT Please Call patient if MyChart note not read to review results/released to My Chart if tests completed at [facility]: Mildly high vitamin b12- decrease over the [...] accordingly. Lynne Ni MD documented in this encounterUniversity Hospitals Health System10-12-2022 Instructions* Patient Instructions* Jose Najera MD - 03/04/2022 11:42 AM EDT Labs today. Referral for sleep study. RTC in 2 weeks. Consider immunology referral. Referral to lifestyle medicine documented in this encounterUniversity Hospitals Health System10-12-2022 History of Present illness Narrative* Jose Najera MD - 03/04/2022 11:19 AM EDT Images from the original note were not included. NAME: Jones Haley [facility] NO.: [id number] DATE OF SERVICE: March 04, 2022 Referring [...] which included preparing to see the patient, [id number] patient care, completing clinical documentation, obtaining and/or reviewing separately obtained history, performing a medically appropriate examination, counseling and educating the pat ient/family/caregiver, ordering medications, tests, or procedures, and independently interpreting results (not separately reported). Jose Najera MD, CPE [facility]ology [facility] Oncology Services Provided at: [place], [place] CC: Madelaine Ferris MD [address] [id number] Madelaine Ferris MD, MD [address] [facility] [id number] documented in this encounterUniversity Hospitals Health System2022 History of Present illness Narrative* Tiffany Head DO - 02/24/2022 6:00 PM EDT VIRTUAL VISIT PROGRESS NOTE This is a virtual visit using LineHop video visit. 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 Ni. Dr. Ni and I [...] - R00.0) Nov, [place] (ICD-10 - R23.2) [employer] Other 06-03-2022 Nurse Note* Lynne Ni MD - 10/24/2021 8:32 AM EDT See progress note documented in this encounterUniversity Hospitals Health System06-03-2022 History of Present illness Narrative* Lynne Ni [...] Due for eye exam. Labs sent to bath/completed in 06/2021 (no results faxed to office, but patient pulled up results on her phone). Chronic current pain in neck, flank area, mid back, knees, legs, arms, all over pain. Better with lyrica 75mg 3times a day. Reports pain 4-12/31. Couple hrs AM stiffness. COVID vaccine [employer] 09/28/20, 10/19/20, 05/26/21. Feels safe at home. [...] palpitations Does better with dexamethasone Reports pain 2-710 No falls/fx/trauma/illness/oral sores/rash/hairloss/jaw pain/dysphagia/epistaxis/hemoptysis. No adverse effects [...] Date(s) Administered COVID-19 vaccine, age 12+ yr ([place] - PURPLE TOP) 09/28/2020 10/19/2020 Pneumovax no [...] Diagnostic tests reviewed for today's visit: Outside [place] 06/2021 low vitamin D 16, vitamin b12-307;high [...] Due for eye exam. Labs sent to bath/completed in 06/2021 (no results faxed to office, [...] (200mg) daily with a meal Please see cras every 6-12months while on Hydroxychloroquine. Recommend goal: [...] your toes, sit-ups, using row machine buttermaker continuous churn pain recommendations per primary care provider/pain clinic [...] video & audio (virtual) or phone or [id number] patient care, completing clinical documentation, obtaining and/or [...] With SOME difficulty Bend down to picker / packer clothing from the floor? With SOME difficulty [...] my health Strongly Agree documented in this encounterUniversity Hospitals Health System06-03-2022 Instructions* Patient Instructions* Lynne Ni MD - [...] (200mg) daily with a meal Please see cras every 6-12months while on Hydroxychloroquine. Recommend goal: [...] your toes, sit-ups, using row machine buttermaker continuous churn pain recommendations per primary care provider/pain clinic Thank you. documented in this encounterUniversity Hospitals Health System05-25-2022 Evaluation note* Encounter Date Diagnosis Assessment Notes [...] diagnosis I will defer that to her ferryboat operator helper. September, Tachycardia (ICD-10 - R00.0) September, [place] (ICD-10 - R23.2) [employer] Other 04-28-2022 Evaluation note* Encounter Date Diagnosis Assessment Notes Treatment Notes Treatment Clinical Notes Aug, Elevated sed rate (ICD-10 - R70.0) [employer] Other 04-21-2022 Evaluation note* Encounter Date Diagnosis [...] diagnosis I will defer that to her ferryboat operator helper. [employer] Other 05-17-2021 Hospital Discharge instructions* Instructions* So [...] be sent through Care Everywhere. * amlodipine (Andorran) * nitroglycerin (oral/sublingual) ([place]orran) [facility] Phone: [phone] 122-871605-17-2021 History of Present illness Narrative* So [place] [...] needs to be completed. documented in this encounterJoint [facility] Phone: [phone] 428-646101-08-2015 History of Past illness Narrative* Problem Noted Date Resolved Date Obesity (BMI 30-39.9) 05/31/2014 07/06/2016 documented as of this encounter (statuses as of 10/24/2021) [facility] of [facility] Narrative* Problem Noted Date Resolved Date Obesity (BMI 30-39.9) 05/31/2014 07/06/2016 documented as of this encounter (statuses as of 02/25/2022) [facility] of Past illness Narrative* Problem Noted Date Resolved Date Obesity (BMI 30-39.9) 05/31/2014 07/06/2016 documented as of this encounter (statuses as of 03/02/2022) [facility] of [facility] Narrative* Problem Noted Date Resolved Date Obesity (BMI 30-39.9) 05/31/2014 07/06/2016 documented as of this encounter (statuses as of 03/04/2022) [address]-2015 History of Past illness Narrative* Problem Noted Date Resolved Date Obesity (BMI 30-39.9) 05/31/2014 07/06/2016 documented as of this encounter (statuses as of 03/05/2022) [address]08[address]2015 History of Past illness Narrative* Problem Noted Date Resolved Date Obesity (BMI 30-39.9) 05/31/2014 07/06/2016 documented as of this encounter (statuses as of 03/06/2022) [address]08[address]2015 History of Past illness Narrative* Problem Noted Date Resolved Date Obesity (BMI 30-39.9) 05/31/2014 07/06/2016 documented as of this encounter (statuses as of 03/09/2022) [address]08[address]2015 History of Past illness Narrative* Problem Noted Date Resolved Date Obesity (BMI 30-39.9) 05/31/2014 07/06/2016 documented as of this encounter (statuses as of 03/10/2022) [address]2015 History of Past illness Narrative* Problem Noted Date Resolved Date Obesity (BMI 30-39.9) 05/31/2014 07/06/2016 documented as of this encounter (statuses as of 03/10/2022) [address]2015 History of Past illness Narrative* Problem Noted Date Resolved Date Obesity (BMI 30-39.9) 05/31/2014 07/06/2016 documented as of this encounter (statuses as of 03/12/2022) [address]2015 History of Past illness Narrative* Problem Noted Date Resolved Date Obesity (BMI 30-39.9) 05/31/2014 07/06/2016 documented as of this encounter (statuses as of 03/18/2022) [address]2015 History of Past illness Narrative* Problem Noted Date Resolved Date Obesity (BMI 30-39.9) 05/31/2014 07/06/2016 documented as of this encounter (statuses as of 03/22/2022) [address]2015 History of Past illness Narrative* Problem Noted Date Resolved Date Obesity (BMI 30-39.9) 05/31/2014 07/06/2016 documented as of this encounter (statuses as of 03/30/2022) [address]2015 History of Past illness Narrative* Problem Noted Date Resolved Date Obesity (BMI 30-39.9) 05/31/2014 07/06/2016 documented as of this encounter (statuses as of 03/30/2022) [address]2015 History of Past illness Narrative* Problem Noted Date Resolved Date Obesity (BMI 30-39.9) 05/31/2014 07/06/2016 documented as of this encounter (statuses as of 04/03/2022) [address]2015 History of Past illness Narrative* Problem Noted Date Resolved Date Obesity (BMI 30-39.9) 05/31/2014 07/06/2016 documented as of this encounter (statuses as of 04/03/2022) [address]2015 History of Past illness Narrative* Problem Noted Date Resolved Date Obesity (BMI 30-39.9) 05/31/2014 07/06/2016 documented as of this encounter (statuses as of 04/22/2022) [address]2015 History of Past illness Narrative* Problem Noted Date Resolved Date Obesity (BMI 30-39.9) 05/31/2014 07/06/2016 documented as of this encounter (statuses as of 04/24/2022) [address]2015 History of Past illness Narrative* Problem Noted Date Resolved Date Obesity (BMI 30-39.9) 05/31/2014 07/06/2016 documented as of this encounter (statuses as of 05/05/2022) [address]2015 History of Past illness Narrative* Problem Noted Date Resolved Date Obesity (BMI 30-39.9) 05/31/2014 07/06/2016 documented as of this encounter (statuses as of 05/05/2022) [address]2015 History of Past illness Narrative* Problem Noted Date Resolved Date Obesity (BMI 30-39.9) 05/31/2014 07/06/2016 documented as of this encounter (statuses as of 05/05/2022) [address]2015 History of Past illness Narrative* Problem Noted Date Resolved Date Obesity (BMI 30-39.9) 05/31/2014 07/06/2016 documented as of this encounter (statuses as of 05/26/2022) [address] History of Past illness Narrative* Problem Noted Date Resolved Date Obesity (BMI 30-39.9) 05/31/2014 07/06/2016 documented as of this encounter (statuses as of 05/27/2022) [address]2015 History of Past illness Narrative* Problem Noted Date Resolved Date Obesity (BMI 30-39.9) 05/31/2014 07/06/2016 documented as of this encounter (statuses as of 07/22/2022) [address]2015 History of Past illness Narrative* Problem Noted Date Resolved Date Obesity (BMI 30-39.9) 05/31/2014 07/06/2016 documented as of this encounter (statuses as of 07/25/2022) [address]2015 History of Past illness Narrative* Problem Noted Date Resolved Date Obesity (BMI 30-39.9) 05/31/2014 07/06/2016 documented as of this encounter (statuses as of 07/27/2022) [address]08[address]2015 History of Past illness Narrative* Problem Noted Date Resolved Date Obesity (BMI 30-39.9) 05/31/2014 07/06/2016 documented as of this encounter (statuses as of 07/28/2022) [address]2015 History of Past illness Narrative* Problem Noted Date Resolved Date Obesity (BMI 30-39.9) 05/31/2014 07/06/2016 documented as of this encounter (statuses as of 08/10/2022) [address]2015 History of Past illness Narrative* Problem Noted Date Resolved Date Obesity (BMI 30-39.9) 05/31/2014 07/06/2016 documented as of this encounter (statuses as of 08/18/2022) [address]08[address]2015 History of Past illness Narrative* Problem Noted Date Resolved Date Obesity (BMI 30-39.9) 05/31/2014 07/06/2016 documented as of this encounter (statuses as of 08/19/2022) [address]2015 History of Past illness Narrative* Problem Noted Date Resolved Date Obesity (BMI 30-39.9) 05/31/2014 07/06/2016 documented as of this encounter (statuses as of 08/27/2022) [address]2015 History of Past illness Narrative* Problem Noted Date Resolved Date Obesity (BMI 30-39.9) 05/31/2014 07/06/2016 documented as of this encounter (statuses as of 08/29/2022) [address]2015 History of Past illness Narrative* Problem Noted Date Resolved Date Obesity (BMI 30-39.9) 05/31/2014 07/06/2016 documented as of this encounter (statuses as of 08/31/2022) [address]08[address]2015 History of Past illness Narrative* Problem Noted Date Resolved Date Obesity (BMI 30-39.9) 05/31/2014 07/06/2016 documented as of this encounter (statuses as of 09/08/2022) [address]08[address]2015 History of Past illness Narrative* Problem Noted Date Resolved Date Obesity (BMI 30-39.9) 05/31/2014 07/06/2016 documented as of this encounter (statuses as of 09/08/2022) [address]08[address]2015 History of Past illness Narrative* Problem Noted Date Resolved Date Obesity (BMI 30-39.9) 05/31/2014 07/06/2016 documented as of this encounter (statuses as of 09/24/2022) [address]08[address]2015 History of Past illness Narrative* Problem Noted Date Resolved Date Obesity (BMI 30-39.9) 05/31/2014 07/06/2016 documented as of this encounter (statuses as of 10/22/2022) [address]08[address]2015 History of Past illness Narrative* Problem Noted Date Resolved Date Obesity (BMI 30-39.9) 05/31/2014 07/06/2016 documented as of this encounter (statuses as of 10/25/2022) [address]08[address]2015 History of Past illness Narrative* Problem Noted Date Resolved Date Obesity (BMI 30-39.9) 05/31/2014 07/06/2016 documented as of this encounter (statuses as of 11/19/2022) [address]2015 History of Past illness Narrative* Problem Noted Date Resolved Date Obesity (BMI 30-39.9) 05/31/2014 07/06/2016 documented as of this encounter (statuses as of 11/25/2022) [address]08[address]2015 History of Past illness Narrative* Problem Noted Date Diagnosed Date Resolved Date Obesity (BMI 30-39.9) 05/31/20142016 documented as of this encounter (statuses as of 12/08/2022) [address]08[address]2015 History of Past illness Narrative* Problem Noted Date Diagnosed Date Resolved Date Obesity (BMI 30-39.9) 05/31/20142016 documented as of this encounter (statuses as of 12/18/2022) [address]2015 History of Past illness Narrative* Problem Noted Date Diagnosed Date Resolved Date Obesity (BMI 30-39.9) 05/31/20142016 documented as of this encounter (statuses as of 12/18/2022) [address]2015 History of Past illness Narrative* Problem Noted Date Diagnosed Date Resolved Date Obesity (BMI 30-39.9) 05/31/20142016 documented as of this encounter (statuses as of 12/21/2022) [address]2015 History of Past illness Narrative* Problem Noted Date Diagnosed Date Resolved Date Obesity (BMI 30-39.9) 05/31/20142016 documented as of this encounter (statuses as of 12/22/2022) [address]08[address]2015 History of Past illness Narrative* Problem Noted Date Diagnosed Date Resolved Date Obesity (BMI 30-39.9) 05/31/20142016 documented as of this encounter (statuses as of 01/02/2023) [address]08[address]2015 History of Past illness Narrative* Problem Noted Date Diagnosed Date Resolved Date Obesity (BMI 30-39.9) 05/31/20142016 documented as of this encounter (statuses as of 01/13/2023) [address]2015 History of Past illness Narrative* Problem Noted Date Diagnosed Date Resolved Date Obesity (BMI 30-39.9) 05/31/20142016 documented as of this encounter (statuses as of 01/22/2023) [address]08[address]2015 History of Past illness Narrative* Problem Noted Date Diagnosed Date Resolved Date Obesity (BMI 30-39.9) 05/31/20142016 documented as of this encounter (statuses as of 01/26/2023) [address]2015 History of Past illness Narrative* Problem Noted Date Diagnosed Date Resolved Date Obesity (BMI 30-39.9) 05/31/20142016 documented as of this encounter (statuses as of 02/04/2023) [address]2015 History of Past illness Narrative* Problem Noted Date Diagnosed Date Resolved Date Obesity (BMI 30-39.9) 05/31/20142016 documented as of this encounter (statuses as of 02/04/2023) [address]2015 History of Past illness Narrative* Problem Noted Date Diagnosed Date Resolved Date Obesity (BMI 30-39.9) 05/31/20142016 documented as of this encounter (statuses as of 02/07/2023) [address]2015 History of Past illness Narrative* Problem Noted Date Diagnosed Date Resolved Date Obesity (BMI 30-39.9) 05/31/20142016 documented as of this encounter (statuses as of 02/08/2023) [address]08[address]2015 History of Past illness Narrative* Problem Noted Date Diagnosed Date Resolved Date Obesity (BMI 30-39.9) 05/31/20142016 documented as of this encounter (statuses as of 02/16/2023) [address]2015 History of Past illness Narrative* Problem Noted Date Diagnosed Date Resolved Date Obesity (BMI 30-39.9) 05/31/20142016 documented as of this encounter (statuses as of 02/19/2023) [address]2015 History of Past illness Narrative* Problem Noted Date Diagnosed Date Resolved Date Obesity (BMI 30-39.9) 05/31/20142016 documented as of this encounter (statuses as of 02/21/2023) [address]2015 History of Past illness Narrative* Problem Noted Date Diagnosed Date Resolved Date Obesity (BMI 30-39.9) 05/31/20142016 documented as of this encounter (statuses as of 03/02/2023) [facility] Other systemic lupus [...] and myositis, unspecified [facility] Diagnosis Swelling of lymph nodes- Primary Enlargement of lymph nodes Other systemic lupus erythematosus with other organ involvement (HCC) On prednisone therapy Hair loss Alopecia, unspecified Bilateral sacroiliitis (HCC) Long-term use of Plaquenil 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-term (current) use of other medications [facility] Diagnosis Vitamin B12 deficiency- Primary Other B-complex deficiencies Vitamin D deficiency Unspecified vitamin D deficiency Elevated sed rate Elevated sedimentation rate Elevated C-reactive protein (CRP) documented [facility] Diagnosis 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 Other vitamin B12 deficiency anemia Somnolence, daytime Hypersomnia, unspecified Snoring Other dyspnea and respiratory abnormality Chronic fatigue and malaise Chronic fatigue syndrome Obesity, unspecified classification, unspecified obesity type, unspecified whether serious comorbidity present [facility] Diagnosis Obesity, Class II, BMI 35-39.9- [...] nonspecific immunological findings [facility]* Diagnosis 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 Other vitamin B12 deficiency anemia High total serum IgM [facility] Diagnosis Raised level of immunoglobulins- Primary Other and unspecified nonspecific immunological findings Wound healing, delayed Open wound(s) (multiple) of unspecified site(s), complicated Current smoker Tobacco use disorder [facility] Family history of genetic disease- Primary Family history of other condition [facility] Diagnosis High total serum IgM- Primary Elevated sed rate Elevated sedimentation rate Somnolence, daytime Hypersomnia, unspecified JOSE RAFAEL (obstructive sleep apnea) Obstructive sleep apnea (adult) (pediatric) [facility] 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 Other vitamin B12 deficiency anemia Elevated sed rate Elevated sedimentation rate [facility] Diagnosis 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 Other vitamin B12 deficiency anemia Elevated sed rate Elevated sedimentation rate High total serum IgM Chronic fatigue and malaise Chronic fatigue syndrome [facility] Diagnosis JOSE RAFAEL (obstructive sleep apnea)- Primary Obstructive sleep apnea (adult) (pediatric) [facility] Diagnosis Other systemic lupus erythematosus with other organ involvement (HCC)- Primary Family history of Crohn's disease Family history of other digestive disorders Fibromyalgia Mylagia and myositis, unspecified [facility] Diagnosis Other systemic lupus erythematosus with other organ involvement (HCC)- Primary Elevated LFTs Other abnormal blood chemistry Anemia of chronic disease Anemia of other chronic disease 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 jail 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-term (current) use of other medications [facility] Diagnosis 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 Other vitamin B12 deficiency anemia Elevated sed rate Elevated sedimentation rate [facility] Diagnosis 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 Other vitamin B12 deficiency anemia Elevated sed rate Elevated sedimentation rate High total serum IgM Chronic fatigue and malaise Chronic fatigue syndrome JOSE RAFAEL (obstructive sleep apnea) Obstructive sleep apnea (adult) (pediatric) [facility] Diagnosis Vitamin D deficiency Unspecified vitamin D deficiency [facility] Diagnosis Obesity, Class III, BMI >= 40- Primary Morbid obesity Polypharmacy 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-term (current) use of other medications Pre-diabetes Other abnormal glucose [facility] Diagnosis 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 Other vitamin B12 deficiency anemia Elevated sed rate Elevated sedimentation rate [facility] Diagnosis 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 Other vitamin B12 deficiency anemia Elevated sed rate Elevated sedimentation rate [facility] Diagnosis 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 Other vitamin B12 deficiency anemia Elevated sed rate Elevated sedimentation rate High total serum IgM Chronic fatigue and malaise Chronic fatigue syndrome Obstructive sleep apnea syndrome Obstructive sleep apnea (adult) (pediatric) [facility] Diagnosis 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 Other vitamin B12 deficiency anemia Elevated sed rate Elevated sedimentation rate [facility] Diagnosis Other systemic lupus erythematosus with other organ involvement (HCC) 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-term (current) use of other medications [facility] Diagnosis 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 Other vitamin B12 deficiency anemia Chronic fatigue and malaise Chronic fatigue syndrome [facility] Diagnosis High total serum IgM- Primary Low serum IgG for age Current smoker Tobacco use disorder [facility] Diagnosis Obesity, Class II, BMI 35-39.9 Obesity, unspecified Prediabetes Other abnormal glucose [facility] Diagnosis 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 Other vitamin B12 deficiency anemia Elevated sed rate Elevated sedimentation rate [facility] Diagnosis Other systemic lupus erythematosus with other organ involvement (HCC)- Primary Vitamin D deficiency Unspecified vitamin D deficiency Elevated LFTs Other abnormal blood chemistry Anemia of chronic disease Anemia of other chronic disease Elevated sed rate Elevated sedimentation rate Elevated C-reactive protein (CRP) [facility] Diagnosis Other systemic lupus erythematosus [...] Bilateral wrist pain 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, forearm MCC 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-term (current) use of steroids Steroid-induced osteoporosis Other osteoporosis 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 [facility] Diagnosis Systemic lupus erythematosus with other organ involvement (HCC)- Primary [facility] Diagnosis 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 Other vitamin B12 deficiency anemia High total serum IgM Elevated sed rate Elevated sedimentation rate [facility] Diagnosis Other systemic lupus erythematosus with other organ involvement (HCC)- Primary [facility] Diagnosis Other systemic lupus erythematosus with other organ involvement (HCC) 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-term (current) use of other medications [facility] Diagnosis 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 Other vitamin B12 deficiency anemia Elevated sed rate Elevated sedimentation rate [facility] Diagnosis 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 Other vitamin B12 deficiency anemia Elevated sed rate Elevated sedimentation rate Chronic fatigue and malaise Chronic fatigue syndrome High total serum IgM JOSE RAFAEL (obstructive sleep apnea) Obstructive sleep apnea (adult) (pediatric) [facility] Diagnosis Insulin resistance, unspecified- Primary Depression, recurrent (HCC) Major depressive disorder, recurrent episode, unspecified Chronic pain syndrome [facility] Diagnosis Systemic lupus erythematosus, unspecified SLE type, unspecified organ involvement status (HCC)- Primary [facility] Diagnosis 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 Other vitamin B12 deficiency anemia Elevated sed rate Elevated sedimentation rate [facility] Diagnosis 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 Other vitamin B12 deficiency anemia Elevated sed rate Elevated sedimentation rate [facility] Diagnosis Obesity, Class III, BMI >= 40- Primary Morbid obesity FUO (fever of unknown origin) Fever, unspecified Other chronic pain [facility] Diagnosis Obesity, Class III, BMI >= 40 Morbid obesity [facility] Diagnosis Obesity, Class III, BMI >= 40- Primary Morbid obesity Other chronic pain [facility] Diagnosis Irregular heart rate- Primary Essential hypertension Unspecified essential hypertension Autonomic dysfunction Obstructive sleep apnea syndrome Obstructive sleep apnea (adult) (pediatric) Primary hypertension Unspecified essential hypertension documented in this encounter [facility] Work Phone: Evaluation note* Diagnosis Autoimmune disease (CMS/HCC)- Primary Autoimmune disease, not elsewhere classified Autonomic dysfunction Lumbosacral radiculopathy Thoracic or lumbosacral neuritis or radiculitis, unspecified Bilateral leg weakness Muscle weakness (generalized) [facility] Diagnosis Shortness of breath- Primary Paroxysmal supraventricular tachycardia PAC (premature atrial contraction) Supraventricular premature beats Current smoker Systemic lupus erythematosus, unspecified SLE type, unspecified organ involvement status (CMS/HCC) Palpitations Obstructive sleep apnea syndrome Obstructive sleep apnea (adult) (pediatric) Morbid obesity (CMS/HCC) Morbid obesity Bilateral lower extremity edema documented in this encounter [facility] Work Phone: Evaluation note* Diagnosis 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 Other vitamin B12 deficiency anemia Elevated sed rate Elevated sedimentation rate [facility] Diagnosis Systemic lupus erythematosus with other organ involvement (HCC)- Primary documented in this encounter [facility] general Narrative - Reported* Type Description Date Medical History hyperlipidemia Medical History insulin resistance Medical History CMV Surgical History cyst removal pilonidal Surgical History D&C Hospitalization History [employer] Other Reason for referral (narrative)* Diagnostic Procedure Only (Routine) - Pending Review Specialty Diagnoses / Procedures Referred By Contac t Referred To Contact XR IMAGING Diagnoses Steroid-induced osteoporosis Procedures DXA-FOREARM SKELETON DXA BONE DENSITY STUDY 1/>SITES APPENDICLR Lynne Perera MD [address] [place] [address] [place] [address] Referral ID Status Reason Start Date Expiration Date Visits Requested Visits Authorized [id number] Pending Review Auto-Generat ed Referral 02/04/2023 03/05/2024 1 1 [facility] for referral (narrative)* Consultation (Routine) - Authorized Specialty Diagnoses / Procedures Referred By Contac t Referred To Contact Cardiology Diagnoses Irregular heart rate Essential hypertension Autonomic dysfunction Obstructive sleep apnea syndrome Primary hypertension Procedures Follow Up In Cardiology Michelle Britton APRN-CNP [address] [facility] [address] [place] [address] Aurora Patel MD [address] [address] Referral ID Status Reason Start Date Expiration Date V isits Requested Visits Authorized [id number] Authorized 06/09/2023 06/08/2024 1 1 * Cardiovascular (Routine) - Pending Review Specialty Diagnoses / Procedures Referred By Contac t Referred To Contact Cardiology Diagnoses Irregular heart rate Procedures 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 Michelle Britton APRN-CNP [address] [place] [address] Referral ID Status Reason Start Date Expiration Date V isits Requested Visits Authorized Pending Review 06/09/2023 06/08/2024 1 1 * CV Imaging (Routine) - Pending Review Specialty Diagnoses / Procedures Referred By Contac t Referred To Contact Cardiology Diagnoses Irregular heart rate Obstructive sleep apnea syndrome Procedures Transthoracic Echo (TTE) Complete KS ECHO TTHRC R-T 2D W/WOM-MODE COMPL SPEC&COLR D Michelle Britton APRN-AIR DRILL OPERATOR [address] [place] [address] Referral ID Status Reason Start Date Expiration Date Visits Requested Visits Authorized [id number] Pending Review Perform Procedure 06/09/2023 06/08/2024 1 1 * Cardiovascular (Routine) - Authorized Specialty Diagnoses / Procedures Referred By Contac t Referred To Contact Diagnoses Irregular heart rate Procedures ECG 12 Lead Michelle Britton APRN-CNP [address] [facility] [address] [place] [address] Referral ID Status Reason Start Date Expiration Date V isits Requested Visits Authorized [id number] Authorized 06/09/2023 06/08/2024 1 1 [facility] Work Phone: Summary Purpose Family History No Family History Records FoundNo Family History Records FoundNo Family History Records FoundNo Family History Records FoundNo Family History Records FoundNo Family History Records FoundNo Family History Records FoundNo Family History Records FoundNo Family History Records Found Advance Directives No Advanced Directives Records FoundDocuments on File Type Date Recorded 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 [employer] 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 ACP-Advance Directive ACP-Power of Family Day Care Provider Latest Code Status on File Code Status Date Activated Date Inactivated Comments Full Code 10/07/2020 8:32 AM Documents on File Type Date Recorded 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 [employer] anation Advance Directive(s) 09/13/2015 8:36 AM Reason for Referral Specialty Diagnoses / Procedures Referred By Contac t Referred To Contact Diagnoses Paroxysmal supraventricular tachycardia PAC (premature atrial contraction) Procedures ECG 12 Lead Lois Holm MD [address] [facility] 2, [address] [place] [address] Referral ID Status Reason Start Date Expiration Date V isits Requested Visits Authorized [id number] Authorized 07/13/2023 07/12/2024 1 1 Specialty Diagnoses / Procedures Referred By Contac t Referred To Contact Cardiology Diagnoses Shortness of breath Paroxysmal supraventricular tachycardia PAC (premature atrial contraction) Procedures Follow Up In Cardiology Lois Holm MD [address], [address] [address] Lois Holm MD [address] [facility] 2, [facility] [address] [place] [address] Referral ID Status Reason Start Date Expiration Date V isits Requested Visits Authorized [id number] Authorized 07/13/2023 07/12/2024 1 1 Specialty Diagnoses / Procedures Referred By Contac t Referred To Contact Diagnoses Obesity, Class III, BMI 40-49.9 (morbid obesity) (HCC) Pre-diabetes Christie Phan MD [address] [place], [place] [id number] Referral ID Status Reason Start Date Expiration Date Visits Re quested Visits Authorized [id number] Closed 1 1 Specialty Diagnoses / Procedures Referred By Contac t Referred To Contact Diagnoses Wound healing, delayed Procedures CONSULT TO MEDICAL GENETICS - GENERAL OFFICE/OUTPATIENT [facility] 60-74 MINUTES MEDICAL GENETICS COUNSELING EACH 30 MINUTES Misty Nelson MD [facility] [place] [phone] [facility] Medicine [place] [address] [place] [id number] Referral ID Status Reason Start Date Expiration Date Visits Requested Visits Authorized [id number] Authorized PCP Requested Referral Auto-Generate d Referral 2 03/10/2023 1 1 Specialty Diagnoses / Procedures Referred By Contac t Referred To Contact Neurology Diagnoses POTS (postural orthostatic tachycardia syndrome) Procedures CONSULT TO NEUROLOGY OFFICE/OUTPATIENT [facility] 60-74 MINUTES Christie Phan MD [address] [place] [address] Referral ID Status Reason Start Date Expiration Date Visits Requested Visits Authorized [id number] Authorized PCP Requested Referral 2 03/12/2023 1 1 Specialty Diagnoses / Procedures Referred By Contac t Referred To Contact Immunology Diagnoses Raised level of immunoglobulins Procedures CONSULT TO IMMUNOLOGY OFFICE/OUTPATIENT [facility] 60-74 MINUTES Christie Phan MD [address] [place], [place] [id number] Referral ID Status Reason Start Date Expiration Date V isits Requested Visits Authorized [id number] Closed PCP Requested Referral 03/09/2022 03/09/2023 1 1 Specialty Diagnoses / Procedures Referred By Contac t Referred To Contact NEUROLOGICAL [place] Diagnoses Somnolence, daytime Snoring Procedures HOME SLEEP APNEA TEST (HSAT) SLEEP STD AIRFLOW HRT RATE&O2 SAT EFFORT UNATT Christie Phan MD [address] [place] [phone] [facility] [place] [address] [place] [address] Referral ID Status Reason Start Date Expiration Date Visits Requested Visits Authorized [id number] Authorized Auto-Generat ed Referral 2 03/09/2023 1 1 Specialty Diagnoses / [facility] Referred To Contact Diagnoses Somnolence, daytime Chronic fatigue and malaise Obesity, unspecified classification, unspecified obesity type, unspecified whether serious comorbidity present Procedures CONSULT TO LIFESTYLE MEDICINE MD OFFICE/OUTPATIENT [facility] 60-74 MINUTES Jose Najera MD [address] [place] [address] [place] [address] Referral ID Status Reason Start Date Expiration Date V isits Requested Visits Authorized [id number] Closed PCP Requested Referral 03/04/2022 03/04/2023 1 1 Specialty Diagnoses / Procedures [facility] Referred To Contact Diagnoses Somnolence, daytime Snoring Procedures CONSULT TO SLEEP MEDICINE - ADULT OFFICE/OUTPATIENT [facility] 60-74 MINUTES Jose Najera MD [address] [place] [address] [place] [address] Referral ID Status Reason Start Date Expiration Date Visits Requested Visits Authorized [id number] Authorized PCP Requested Referral 2 03/04/2023 1 [...] section and content) DATE CREATED AUTHOR 09/20/2018 [facility] DATE CREATED AUTHOR AUTHOR'S ORGANIZ ATION 09/23/2018 [facility] DATE CREATED AUTHOR AUTHOR'S ORGANIZ ATION 12/10/2018 [facility] DATE CREATED AUTHOR AUTHOR'S ORGANIZ ATION 01/13/2019 [facility] DATE CREATED AUTHOR AUTHOR'S ORGANIZ ATION 06/28/2021 [facility] DATE CREATED AUTHOR AUTHOR'S ORGANIZ ATION 10/01/2022 [facility]ital DATE CREATED AUTHOR AUTHOR'S ORGANIZ ATION 07/14/2023 [facility] DATE CREATED AUTHOR AUTHOR'S ORGANIZ ATION 07/23/2023 [facility] DATE CREATED AUTHOR AUTHOR'S ORGANIZ ATION 07/23/2023 [facility] Reason for Visit (unrecogniz ed section and content) Status Reason Specialty Diagnoses / Procedures Referre d By Contact Referred To Contact [facility] Reason Comments Pain ongoing generalized pain. Reason Comments New Reason Comments Opened In Error Reason Comments Results Reason Comments Abnormal labs New patient consult Reason Comments New Patient Virtual visit Specialty Diagnoses / Procedures Referred By Contiliana t Referred To Contact Diagnoses Somnolence, daytime Chronic fatigue and malaise Obesity, unspecified classification, unspecified obesity type, unspecified whether serious comorbidity present Procedures CONSULT TO LIFESTYLE MEDICINE MD OFFICE/OUTPATIENT NEW HIGH MDM 60-74 MINUTES Jose Najera MD [address] [place] [address] [place] [address] Referral ID Status Reason Start Date Expiration Date V isits Requested Visits Authorized [id number] Closed PCP Requested Referral 03/04/2022 03/04/2023 1 1 Reason Comments High Total serum IgM Anemia Reason Comments Consult Specialty Diagnoses / Procedures Referred By Contac t Referred To Contact Immunology Diagnoses Raised level of immunoglobulins Procedures CONSULT TO IMMUNOLOGY OFFICE/OUTPATIENT NEW HIGH MDM 60-74 MINUTES Christie Phan MD [address] [place] [address] Referral ID Status Reason Start Date Expiration Date V isits Requested Visits Authorized [id number] Closed PCP Requested Referral 03/09/2022 03/09/2023 1 1 Reason Comments Pneumovax Reason Comments Refill Request Reason Comments Appointment Opthalmic Tech - Other Reason Comments Future Appointment Scheduling [...] rate Procedures ECG 12 Lead Michelle Britton, SPA ASSOCIATE-AIR DRILL OPERATOR [address] [facility] [address] [place] [address] Referral ID Status Reason Start Date Expiration Date V isits Requested Visits Authorized [id number] Authorized 06/09/2023 06/08/2024 1 1 Reason Comments New Patient Visit Leg Swelling, test r esults from [facility] Specialty Diagnoses / Procedures Referred By Nahid t Referred To Contact Diagnoses Paroxysmal supraventricular tachycardia PAC (premature atrial contraction) Procedures ECG 12 Lead Lois Holm MD [address] [facility] 2, [address] [place] [address] Referral ID Status Reason Start Date Expiration Date V isits Requested Visits Authorized [id number] Authorized 07/13/2023 07/12/2024 1 1 Reason Onset Date Comments SPP Inflammatory Conditions - Medication Refill 07/13/2023 [place] Ordered Prescriptions (unrec ognized section and content) [...] any alcohol or drug abuse patient.[facility] System[facility] the event this information is protected by the Federal Confidentiality of Alcohol and Drug Abuse Patient Records regulations: The Federal rules restrict any use of the information to criminally investigate or prosecute any alcohol or drug abuse patient.[facility] SystemIn the event this information is protected by the Federal Confidentiality of Alcohol and Drug Abuse Patient Records regulations: The Federal rules restrict any use of the information to criminally investigate or prosecute any alcohol or drug abuse patient.[facility] SystemIn the event this information is protected by the Federal Confidentiality of Alcohol and Drug Abuse Patient Records regulations: The Federal rules restrict any use of the information to criminally investigate or prosecute any alcohol or drug abuse patient.[facility] SystemIn the event this information is protected by the Federal Confidentiality of Alcohol and Drug Abuse Patient Records regulations: The Federal rules restrict any use of the information to criminally investigate or prosecute any alcohol or drug abuse patient.[facility] SystemIn the event this information is protected by the Federal Confidentiality of Alcohol and Drug Abuse Patient Records regulations: The Federal rules restrict any use of the information to criminally investigate or prosecute any alcohol or drug abuse patient.[facility] SystemIn the event this information is protected by the Federal Confidentiality of Alcohol and Drug Abuse Patient Records regulations: The Federal rules restrict any use of the information to criminally investigate or prosecute any alcohol or drug abuse patient.[facility] SystemIn the event this information is protected by the Federal Confidentiality of Alcohol and Drug Abuse Patient Records regulations: The Federal rules restrict any use of the information to criminally investigate or prosecute any alcohol or drug abuse patient.[facility] SystemIn the event this information is protected by the Federal Confidentiality of Alcohol and Drug Abuse Patient Records regulations: The Federal rules restrict any use of the information to criminally investigate or prosecute any alcohol or drug abuse patient.[facility] SystemIn the event this information is protected by the Federal Confidentiality of Alcohol and Drug Abuse Patient Records regulations: The Federal rules restrict any use of the information to criminally investigate or prosecute any alcohol or drug abuse patient.[facility] SystemIn the event this information is protected by the Federal Confidentiality of Alcohol and Drug Abuse Patient Records regulations: The Federal rules restrict any use of the information to criminally investigate or prosecute any alcohol or drug abuse patient.[facility] SystemIn the event this information is protected by the Federal Confidentiality of Alcohol and Drug Abuse Patient Records regulations: The Federal rules restrict any use of the information to criminally investigate or prosecute any alcohol or drug abuse patient.[facility] SystemIn the event this information is protected by the Federal Confidentiality of Alcohol and Drug Abuse Patient Records regulations: The Federal rules restrict any use of the information to criminally investigate or prosecute any alcohol or drug abuse patient.[facility] SystemIn the event this information is protected by the Federal Confidentiality of Alcohol and Drug Abuse Patient Records regulations: The Federal rules restrict any use of the information to criminally investigate or prosecute any alcohol or drug abuse patient.[facility] SystemIn the event this information is protected by the Federal Confidentiality of Alcohol and Drug Abuse Patient Records regulations: The Federal rules restrict any use of the information to criminally investigate or prosecute any alcohol or drug abuse patient.[facility] SystemIn the event this information is protected by the Federal Confidentiality of Alcohol and Drug Abuse Patient Records regulations: The Federal rules restrict any use of the information to criminally investigate or prosecute any alcohol or drug abuse patient.[facility] SystemIn the event this information is protected by the Federal Confidentiality of Alcohol and Drug Abuse Patient Records regulations: The Federal rules restrict any use of the information to criminally investigate or prosecute any alcohol or drug abuse patient.[facility] SystemIn the event this information is protected by the Federal Confidentiality of Alcohol and Drug Abuse Patient Records regulations: The Federal rules restrict any use of the information to criminally investigate or prosecute any alcohol or drug abuse patient.[facility] SystemIn the event this information is protected by the Federal Confidentiality of Alcohol and Drug Abuse Patient Records regulations: The Federal rules restrict any use of the information to criminally investigate or prosecute any alcohol or drug abuse patient.[facility] SystemIn the event this information is protected by the Federal Confidentiality of Alcohol and Drug Abuse Patient Records regulations: The Federal rules restrict any use of the information to criminally investigate or prosecute any alcohol or drug abuse patient.[facility] SystemIn the event this information is protected by the Federal Confidentiality of Alcohol and Drug Abuse Patient Records regulations: The Federal rules restrict any use of the information to criminally investigate or prosecute any alcohol or drug abuse patient.[facility] SystemIn the event this information is protected by the Federal Confidentiality of Alcohol and Drug Abuse Patient Records regulations: The Federal rules restrict any use of the information to criminally investigate or prosecute any alcohol or drug abuse patient.[facility] SystemIn the event this information is protected by the Federal Confidentiality of Alcohol and Drug Abuse Patient Records regulations: The Federal rules restrict any use of the information to criminally investigate or prosecute any alcohol or drug abuse patient.[facility] SystemIn the event this information is protected by the Federal Confidentiality of Alcohol and Drug Abuse Patient Records regulations: The Federal rules restrict any use of the information to criminally investigate or prosecute any alcohol or drug abuse patient.[facility] SystemIn the event this information is protected by the Federal Confidentiality of Alcohol and Drug Abuse Patient Records regulations: The Federal rules restrict any use of the information to criminally investigate or prosecute any alcohol or drug abuse patient.[facility] SystemIn the event this information is protected by the Federal Confidentiality of Alcohol and Drug Abuse Patient Records regulations: The Federal rules restrict any use of the information to criminally investigate or prosecute any alcohol or drug abuse patient.[facility] SystemIn the event this information is protected by the Federal Confidentiality of Alcohol and Drug Abuse Patient Records regulations: The Federal rules restrict any use of the information to criminally investigate or prosecute any alcohol or drug abuse patient.[facility] SystemIn the event this information is protected by the Federal Confidentiality of Alcohol and Drug Abuse Patient Records regulations: The Federal rules restrict any use of the information to criminally investigate or prosecute any alcohol or drug abuse patient.[facility] SystemIn the event this information is protected by the Federal Confidentiality of Alcohol and Drug Abuse Patient Records regulations: The Federal rules restrict any use of the information to criminally investigate or prosecute any alcohol or drug abuse patient.[facility] SystemIn the event this information is protected by the Federal Confidentiality of Alcohol and Drug Abuse Patient Records regulations: The Federal rules restrict any use of the information to criminally investigate or prosecute any alcohol or drug abuse patient.[facility] SystemIn the event this information is protected by the Federal Confidentiality of Alcohol and Drug Abuse Patient Records regulations: The Federal rules restrict any use of the information to criminally investigate or prosecute any alcohol or drug abuse patient.[facility] SystemIn the event this information is protected by the Federal Confidentiality of Alcohol and Drug Abuse Patient Records regulations: The Federal rules restrict any use of the information to criminally investigate or prosecute any alcohol or drug abuse patient.[facility] SystemIn the event this information is protected by the Federal Confidentiality of Alcohol and Drug Abuse Patient Records regulations: The Federal rules restrict any use of the information to criminally investigate or prosecute any alcohol or drug abuse patient.[facility] SystemIn the event this information is protected by the Federal Confidentiality of Alcohol and Drug Abuse Patient Records regulations: The Federal rules restrict any use of the information to criminally investigate or prosecute any alcohol or drug abuse patient.[facility] SystemIn the event this information is protected by the Federal Confidentiality of Alcohol and Drug Abuse Patient Records regulations: The Federal rules restrict any use of the information to criminally investigate or prosecute any alcohol or drug abuse patient.[facility] SystemIn the event this information is protected by the Federal Confidentiality of Alcohol and Drug Abuse Patient Records regulations: The Federal rules restrict any use of the information to criminally investigate or prosecute any alcohol or drug abuse patient.[facility] SystemIn the event this information is protected by the Federal Confidentiality of Alcohol and Drug Abuse Patient Records regulations: The Federal rules restrict any use of the information to criminally investigate or prosecute any alcohol or drug abuse patient.[facility] SystemIn the event this information is protected by the Federal Confidentiality of Alcohol and Drug Abuse Patient Records regulations: The Federal rules restrict any use of the information to criminally investigate or prosecute any alcohol or drug abuse patient.[facility] SystemIn the event this information is protected by the Federal Confidentiality of Alcohol and Drug Abuse Patient Records regulations: The Federal rules restrict any use of the information to criminally investigate or prosecute any alcohol or drug abuse patient.[facility] SystemIn the event this information is protected by the Federal Confidentiality of Alcohol and Drug Abuse Patient Records regulations: The Federal rules restrict any use of the information to criminally investigate or prosecute any alcohol or drug abuse patient.[facility] SystemIn the event this information is protected by the Federal Confidentiality of Alcohol and Drug Abuse Patient Records regulations: The Federal rules restrict any use of the information to criminally investigate or prosecute any alcohol or drug abuse patient.[facility] SystemIn the event this information is protected by the Federal Confidentiality of Alcohol and Drug Abuse Patient Records regulations: The Federal rules restrict any use of the information to criminally investigate or prosecute any alcohol or drug abuse patient.[facility] SystemIn the event this information is protected by the Federal Confidentiality of Alcohol and Drug Abuse Patient Records regulations: The Federal rules restrict any use of the information to criminally investigate or prosecute any alcohol or drug abuse patient.[facility] SystemIn the event this information is protected by the Federal Confidentiality of Alcohol and Drug Abuse Patient Records regulations: The Federal rules restrict any use of the information to criminally investigate or prosecute any alcohol or drug abuse patient.[facility] SystemIn the event this information is protected by the Federal Confidentiality of Alcohol and Drug Abuse Patient Records regulations: The Federal rules restrict any use of the information to criminally investigate or prosecute any alcohol or drug abuse patient.[facility] SystemIn the event this information is protected by the Federal Confidentiality of Alcohol and Drug Abuse Patient Records regulations: The Federal rules restrict any use of the information to criminally investigate or prosecute any alcohol or drug abuse patient.[facility] SystemIn the event this information is protected by the Federal Confidentiality of Alcohol and Drug Abuse Patient Records regulations: The Federal rules restrict any use of the information to criminally investigate or prosecute any alcohol or drug abuse patient.[facility] SystemIn the event this information is protected by the Federal Confidentiality of Alcohol and Drug Abuse Patient Records regulations: The Federal rules restrict any use of the information to criminally investigate or prosecute any alcohol or drug abuse patient.[facility] SystemIn the event this information is protected by the Federal Confidentiality of Alcohol and Drug Abuse Patient Records regulations: The Federal rules restrict any use of the information to criminally investigate or prosecute any alcohol or drug abuse patient.[facility] SystemIn the event this information is protected by the Federal Confidentiality of Alcohol and Drug Abuse Patient Records regulations: The Federal rules restrict any use of the information to criminally investigate or prosecute any alcohol or drug abuse patient.[facility] SystemIn the event this information is protected by the Federal Confidentiality of Alcohol and Drug Abuse Patient Records regulations: The Federal rules restrict any use of the information to criminally investigate or prosecute any alcohol or drug abuse patient.[facility] SystemIn the event this information is protected by the Federal Confidentiality of Alcohol and Drug Abuse Patient Records regulations: The Federal rules restrict any use of the information to criminally investigate or prosecute any alcohol or drug abuse patient.[facility] SystemIn the event this information is protected by the Federal Confidentiality of Alcohol and Drug Abuse Patient Records regulations: The Federal rules restrict any use of the information to criminally investigate or prosecute any alcohol or drug abuse patient.[facility] SystemIn the event this information is protected by the Federal Confidentiality of Alcohol and Drug Abuse Patient Records regulations: The Federal rules restrict any use of the information to criminally investigate or prosecute any alcohol or drug abuse patient.[facility] SystemIn the event this information is protected by the Federal Confidentiality of Alcohol and Drug Abuse Patient Records regulations: The Federal rules restrict any use of the information to criminally investigate or prosecute any alcohol or drug abuse patient.[facility] SystemIn the event this information is protected by the Federal Confidentiality of Alcohol and Drug Abuse Patient Records regulations: The Federal rules restrict any use of the information to criminally investigate or prosecute any alcohol or drug abuse patient.[facility] SystemIn the event this information is protected by the Federal Confidentiality of Alcohol and Drug Abuse Patient Records regulations: The Federal rules restrict any use of the information to criminally investigate or prosecute any alcohol or drug abuse patient.[facility] SystemIn the event this information is protected by the Federal Confidentiality of Alcohol and Drug Abuse Patient Records regulations: The Federal rules restrict any use of the information to criminally investigate or prosecute any alcohol or drug abuse patient.[facility] SystemIn the event this information is protected by the Federal Confidentiality of Alcohol and Drug Abuse Patient Records regulations: The Federal rules restrict any use of the information to criminally investigate or prosecute any alcohol or drug abuse patient.[facility] SystemIn the event this information is protected by the Federal Confidentiality of Alcohol and Drug Abuse Patient Records regulations: The Federal rules restrict any use of the information to criminally investigate or prosecute any alcohol or drug abuse patient.[facility] SystemIn the event this information is protected by the Federal Confidentiality of Alcohol and Drug Abuse Patient Records regulations: The Federal rules restrict any use of the information to criminally investigate or prosecute any alcohol or drug abuse patient.[facility] SystemIn the event this information is protected by the Federal Confidentiality of Alcohol and Drug Abuse Patient Records regulations: The Federal rules restrict any use of the information to criminally investigate or prosecute any alcohol or drug abuse patient.[facility] SystemIn the event this information is protected by the Federal Confidentiality of Alcohol and Drug Abuse Patient Records regulations: The Federal rules restrict any use of the information to criminally investigate or prosecute any alcohol or drug abuse patient.[facility] SystemIn the event this information is protected by the Federal Confidentiality of Alcohol and Drug Abuse Patient Records regulations: The Federal rules restrict any use of the information to criminally investigate or prosecute any alcohol or drug abuse patient.[facility] SystemIn the event this information is protected by the Federal Confidentiality of Alcohol and Drug Abuse Patient Records regulations: The Federal rules restrict any use of the information to criminally investigate or prosecute any alcohol or drug abuse patient.[facility] SystemIn the event this information is protected by the Federal Confidentiality of Alcohol and Drug Abuse Patient Records regulations: The Federal rules restrict any use of the information to criminally investigate or prosecute any alcohol or drug abuse patient.[facility] SystemIn the event this information is protected by the Federal Confidentiality of Alcohol and Drug Abuse Patient Records regulations: The Federal rules restrict any use of the information to criminally investigate or prosecute any alcohol or drug abuse patient.[facility] SystemIn the event this information is protected by the Federal Confidentiality of Alcohol and Drug Abuse Patient Records regulations: The Federal rules restrict any use of the information to criminally investigate or prosecute any alcohol or drug abuse patient.[facility] Care Teams (unrecognized sec tion and content) Manager Payer Relationship Specialty Start Date End Date Fernie, Gay, SPA ASSOCIATE.AIR DRILL OPERATOR [address] [facility] [place] [address] PCP - General Family Practice 10/24/21 Manager Payer Relationship Specialty Start Date End Date Gay Enciso, SPA ASSOCIATE.AIR DRILL OPERATOR [address] [facility] [place] [place] [address] PCP - General Family Medicine 10/24/21 Madelaine Ferris MD [address] [place] [facility] [place] [place] [address] Referring Family Medicine 02/12/22 Manager Payer Relationship Specialty Start Date End Date Madelaine Ferris MD [address] [place] [facility] [place] [place] [address] PCP - General Family Medicine 02/27/22 Madelaine Ferris MD [address] [place] [facility] [place] [place] [address] Referring Family Medicine 02/12/22 Manager Payer Relationship Specialty Start Date End Date Madelaine Ferris MD [address] [place] [facility] [place] [place] [address] PCP - General Family Medicine 02/27/22 Madelaine Ferris MD [address] [place] [facility] [place] [place] [address] Referring Family Medicine 02/12/22 Manager Payer Relationship Specialty Start Date End Date Madelaine Ferris MD [address] [place] [facility] [place] [place] [address] PCP - General Family Medicine 02/27/22 Madelaine Ferris MD [address] [place] [facility] [place] [place] [address] Referring Family Medicine 02/12/22 Manager Payer Relationship Specialty Start Date End Date Madelaine Ferris MD [address] [place] [facility] [place] [place] [address] PCP - General Family Medicine 02/27/22 Madelaine Ferris MD [address] [place] [facility] [place] [place] [address] Referring Family Medicine 02/12/22 Manager Payer Relationship Specialty Start Date End Date Madelaine Ferris MD [address] [place] [facility] [place] [place] [address] PCP - General Family Medicine 02/27/22 Madelaine Ferris MD [address] [place] [facility] [place] [place] [address] Referring Family Medicine 02/12/22 Manager Payer Relationship Specialty Start Date End Date Madelaine Ferris MD [address] [place] [facility] [place] [place] [address] PCP - General Family Medicine 02/27/22 Madelaine Ferris MD [address] [place] [facility] [place] [place] [address] Referring Family Medicine 02/12/22 Manager Payer Relationship Specialty Start Date End Date Madelaine Ferris MD [address] [place] [facility] [place] [place] [address] PCP - General Family Medicine 02/27/22 Madelaine Ferris MD [address] [place] [facility] [place] [place] [address] Referring Family Medicine 02/12/22 Manager Payer Relationship Specialty Start Date End Date Madelaine Ferris MD [address] [place] [facility] [place] [place] [address] PCP - General Family Medicine 02/27/22 Madelaine Ferris MD [address] [place] [facility] [place] [place] [address] Referring Family Medicine 02/12/22 Manager Payer Relationship Specialty Start Date End Date Madelaine Ferris MD [address] [place] [facility] [place] [place] [address] PCP - General Family Medicine 02/27/22 Madelaine Ferris MD [address] [place] [facility] [place] [place] [address] Referring Family Medicine 02/12/22 Manager Payer Relationship Specialty Start Date End Date Madelaine Ferris MD [address] [place] [facility] [place] [place] [address] PCP - General Family Medicine 02/27/22 Madelaine Ferris MD [address] [place] [facility] [place] [place] [address] Referring Family Medicine 02/12/22 Manager Payer Relationship Specialty Start Date End Date Madelaine Ferris MD [address] [place] [facility] [place] [place] [address] PCP - General Family Medicine 02/27/22 Madelaine Ferris MD [address] [place] [facility] [place] [place] [address] Referring Family Medicine 02/12/22 Manager Payer Relationship Specialty Start Date End Date Madelaine Ferris MD [address] [place] [place] [place] [address] PCP - General Family Medicine 02/27/22 Madelaine Ferris MD [address] [place] [place] [place] [address] Referring Family Medicine 02/12/22 Manager Payer Relationship Specialty Start Date End Date Madelaine Ferris MD [address] [place] [place] [place] [address] PCP - General Family Medicine 02/27/22 Madelaine Ferris MD [address] [place] [place] [place] [address] Referring Family Medicine 02/12/22 Manager Payer Relationship Specialty Start Date End Date Madelaine Ferris MD [address] [place] [place] [address] PCP - General Family Medicine 02/27/22 Madelaine Ferris MD [address] [place] [facility] [place] [place] [address] Referring Family Medicine 02/12/22 Manager Payer Relationship Specialty Start Date End Date Madelaine Ferris MD [address] [place] [place] [place] [address] PCP - General Family Medicine 02/27/22 Madelaine Ferris MD [address] [place] [facility] [place] [place] [address] Referring Family Medicine 02/12/22 Manager Payer Relationship Specialty Start Date End Date Madelaine Ferris MD [address] [place] [place] [place] [address] PCP - General Family Medicine 02/27/22 Madelaine Ferris MD [address] [place] [facility] [place] [place] [address] Referring Family Medicine 02/12/22 Manager Payer Relationship Specialty Start Date End Date Madelaine Ferris MD [address] [place] [place] [place] [address] PCP - General Family Medicine 02/27/22 Madelaine Ferris MD [address] [place] [place] [place] [address] Referring Family Medicine 02/12/22 Manager Payer Relationship Specialty Start Date End Date Madelaine Ferris MD [address] [place] [place] [place] [address] PCP - General Family Medicine 02/27/22 Madelaine Ferris MD [address] [place] [place] [place] [address] Referring Family Medicine 02/12/22 Manager Payer Relationship Specialty Start Date End Date Madelaine Ferris MD [address] [place] [place] [place] [address] PCP - General Family Medicine 02/27/22 Madelaine Ferris MD [address] [place] [place] [place] [address] Referring Family Medicine 02/12/22 Manager Payer Relationship Specialty Start Date End Date Madelaine Ferris MD [address] [place] [place] [place] [address] PCP - General Family Medicine 02/27/22 Madelaine Ferris MD [address] [place] [place] [place] [address] Referring Family Medicine 02/12/22 Manager Payer Relationship Specialty Start Date End Date Madelaine Ferris MD [address] [place] [place] [address] PCP - General Family Medicine 02/27/22 Madelaine Ferris MD [address] [place] [place] [address] Referring Family Medicine 02/12/22 Manager Payer Relationship Specialty Start Date End Date Madelaine Ferris MD PCP - General Family Medicine 02/27/22 Madelaine Ferris MD Referring Family Medicine 02/12/22 Manager Payer Relationship Specialty Start Date End Date Madelaine Ferris MD PCP - General Family Medicine 02/27/22 Madelaine Ferris MD Referring Family Medicine 02/12/22 Manager Payer Relationship Specialty Start Date End Date Madelaine Ferris MD PCP - General Family Medicine 02/27/22 Madelaine Ferris MD Referring Family Medicine 02/12/22 Manager Payer Relationship Specialty Start Date End Date Madelaine Ferris MD PCP - General Family Medicine 02/27/22 Madelaine Ferris MD Referring Family Medicine 02/12/22 Manager Payer Relationship Specialty Start Date End Date Madelaine Ferris MD PCP - General Family Medicine 02/27/22 Madelaine Ferris MD Referring Family Medicine 02/12/22 Manager Payer Relationship Specialty Start Date End Date Madelaine Ferris MD PCP - General Family Medicine 02/27/22 Madelaine Ferris MD Referring Family Medicine 02/12/22 Manager Payer Relationship Specialty Start Date End Date Madelaine Ferris MD PCP - General Family Medicine 02/27/22 Madelaine Ferris MD Referring Family Medicine 02/12/22 Manager Payer Relationship Specialty Start Date End Date Madelaine Ferris MD PCP - General Family Medicine 02/27/22 Madelaine Ferris MD Referring Family Medicine 02/12/22 Manager Payer Relationship Specialty Start Date End Date Madelaine Ferris MD PCP - General Family Medicine 02/27/22 Madelaine Ferris MD Referring Family Medicine 02/12/22 Manager Payer Relationship Specialty Start Date End Date Madelaine Ferris MD PCP - General Family Medicine 02/27/22 Madelaine Ferris MD Referring Family Medicine 02/12/22 Manager Payer Relationship Specialty Start Date End Date Madelaine Ferris MD PCP - General Family Medicine 02/27/22 Madelaine Ferris MD Referring Family Medicine 02/12/22 Manager Payer Relationship Specialty Start Date End Date Madelaine Ferris MD PCP - General Family Medicine 02/27/22 Madelaine Ferris MD Referring Family Medicine 02/12/22 Manager Payer Relationship Specialty Start Date End Date Madelaine Ferris MD PCP - General Family Medicine 02/27/22 Madelaine Ferris MD Referring Family Medicine 02/12/22 Manager Payer Relationship Specialty Start Date End Date Madelaine Ferris MD PCP - General Family Medicine 02/27/22 Madelaine Ferris MD Referring Family Medicine 02/12/22 Manager Payer Relationship Specialty Start Date End Date Madelaine Ferris MD PCP - General Family Medicine 02/27/22 Madelaine Ferris MD Referring Family Medicine 02/12/22 Manager Payer Relationship Specialty Start Date End Date Madelaine Ferris MD PCP - General Family Medicine 02/27/22 Madelaine Ferris MD Referring Family Medicine 02/12/22 Manager Payer Relationship Specialty Start Date End Date Madelaine Ferris MD PCP - General Family Medicine 02/27/22 Madelaine Ferris MD Referring Family Medicine 02/12/22 Manager Payer Relationship Specialty Start Date End Date Madelaine Ferris MD PCP - General Family Medicine 02/27/22 Madelaine Ferris MD Referring Family Medicine 02/12/22 Manager Payer Relationship Specialty Start Date End Date Madelaine Ferris MD PCP - General Family Medicine 02/27/22 Madelaine Ferris MD Referring Family Medicine 02/12/22 Manager Payer Relationship Specialty Start Date End Date Madelaine Ferris MD PCP - General Family Medicine 02/27/22 Madelaine Ferris MD Referring Family Medicine 02/12/22 Manager Payer Relationship Specialty Start Date End Date Madelaine Ferris MD PCP - General Family Medicine 02/27/22 Madelaine Ferris MD Referring Family Medicine 02/12/22 Manager Payer Relationship Specialty Start Date End Date Madelaine Ferris MD PCP - General Family Medicine 02/27/22 Madelaine Ferris MD Referring Family Medicine 02/12/22 Manager Payer Relationship Specialty Start Date End Date Madelaine Ferris MD PCP - General Family Medicine 02/27/22 Madelaine Ferris MD Referring Family Medicine 02/12/22 Manager Payer Relationship Specialty Start Date End Date Madelaine Ferris MD PCP - General Family Medicine 02/27/22 Madelaine Ferris MD Referring Family Medicine 02/12/22 Manager Payer Relationship Specialty Start Date End Date Madelaine Ferris MD PCP - General Family Medicine 02/27/22 Madelaine Ferris MD Referring Family Medicine 02/12/22 Manager Payer Relationship Specialty Start Date End Date Madelaine Ferris MD PCP - General Family Medicine 02/27/22 Madelaine Ferris MD Referring Family Medicine 02/12/22 Manager Payer Relationship Specialty Start Date End Date Charles MitchellDO [address] [place] [address] PCP - General 10/22/18 Michelle Britton APRN-AIR DRILL OPERATOR [address] [address] Nurse Practitioner Cardiology 06/08/23 Manager Payer Relationship Specialty Start Date End Date Gay Enciso SPA ASSOCIATE-[employer] DRILL OPERATOR [address] [place] [address] PCP - General 07/13/23 Michelle Britton SPA ASSOCIATE-[employer] DRILL OPERATOR [address] [id number] Nurse Practitioner Cardiology 06/08/23 Aurora Patel MD [address] [id number] Consulting Physician Cardiology 06/23/23 Inactive Administered Medications - up to 3 most recent administrations Administered Medications (un recognized section and content) Medication Order MAR Action Action Date Dose Rate Site cyanocobalamin 1,000 mcg injection 1,000 mcg, INTRAMUSCULAR, ONCE, 1 dose, On Tu07/13/23 at 1200 Given 07/13/2023 12:00 PM EST 1,000 mcg Deltoid, Right FOR RECORDS PERTAINING TO PATIENTS WHO ARE [...] BE BASED ON THE PRIMARY CLINICAL RECORDS. [facility]. provides no warranty or guarantee of the accuracy or completeness of information in this document.
== END 2023-07-30 15:47 | disposition home or self-care (01) ==
LOC: US 15:46
PROVIDERS: PCP Nurse Practitioner Family; Visit Provider Nurse Practitioner Family
DX: M54.2 Cervicalgia (principal); E04.1 Nontoxic single thyroid nodule
CPT/HCPCS: 76536

== ENCOUNTER 2023-08-05 11:46 | Outpatient (OUT) | payer OTHER, SELFPAY ==
--- OUTSIDE RECORDS SUMMARY | 2023-08-05 11:56 | XMS_ITS | CCD ---
Author Name Unknown Address [address] [place] [address] Organization [facility] Care Team Providers Care Laboratory Secretary Name Role Phone VICTOR MANUEL GUZMAN Referring Unavailable Bettina Jiménez Admitting Unavailable Bettina Jiménez Attending Unavailable Lui Salomon Primary Care Unavailable Unavailable Primary Care Provider UnavailJAREN Stuart Referring Unavailable Fernie GRADUATE STUDIES DEAN.TRUE, Gay Primary Care Provider [phone] Mirela Kelsey Unavailable Fernie GRADUATE STUDIES DEAN.Gay BISWAS Primary Care Provider Madelaine Ferris MD Unavailable Madelaine Ferris MD Primary Care Provider [phone] Madelaine Ferris MD Unavailable Madelaine Ferris MD Primary Care Provider [phone] Madelaine Ferris MD Unavailable Madelaine Ferris MD Primary Care Provider [phone] MADELAINE LEYVA Primary Care Unavailable [...] Attending Unavailable PARMJIT ., MICKY Admitting Unavailable DOVER, DR AURORA Pacheco Consulting Unavailable HOY ., [...] Charles Mitchell DO Primary Care Provider Mitali GRADUATE STUDIES DEAN-WIDE PIECE GOODS INSPECTORMichelle Unavailable Unavailable Primary Care Provider UnavailAurora Carney MD Unavailable Fernie GRADUATE STUDIES DEAN[employer] INSPECTOR, Gay S Primary Care Provider MICHELLE BRITTON [...] Unavailable HOY, MADELAINE M Primary Care Unavailable LASTHARPER DorantesLYNNE Referring Unavailable RUFFCHRISTIE Attending Unavailable HOY, [...] (1 source) Sulfamethoxazole / Trimethoprim Drug Allergy [facility] (20 sources) Codeine; Translations: [CODEINE] Drug Allergy Other: See Comments [facility] (20 sources) Latex; Translations: [LATEX] Drug Allergy Rash [facility] (20 sources) Sulfamethoxazole; Translations: [SULFAMETHOXAZOLE] Drug Allergy GI Upset, Other: See Comments [facility] (20 sources) Clindamycin; Translations: [CLINDAMYCIN] Drug Allergy Unknown [facility] (4 sources) Sulfamethoxazole / Trimethoprim Drug Allergy lymph swelling [facility] Other (20 sources) Doxycycline; Translations: [DOXYCYCLINE] Drug Allergy Other: See Comments, Other, Unknown [facility] (20 sources) Sulfamethoxazole / Trimethoprim; Translations: [SULFAMETHOXAZOLE-T RIMETHOPRIM] Drug Allergy Swelling, Other [facility] (20 sources) Trimethoprim; Translations: [TRIMETHOPRIM] Drug Allergy Other: See Comments [facility] (1 source) Latex Drug allergy (disorder) [facility] (1 source) Sulfamethoxazole / Trimethoprim Drug Allergy [facility] (3 sources) Sulfamethoxazole Allergy to substance [facility] (2 sources) Latex Propensity to adverse reactions Rash [facility] Medications Current Medications Medication [...] Start: 01-19-2022 take 1 capsule by mo [facility] once daily naltrexone capsule [...] 0.4 mg unde r the tongue. nystatin 250098 unt/ml topical cream (3 sources) Polyene Antifungal [...] on above: TAKE 1 CAPSULE BY [facility] 3 TIMES A DAY FOR 30 DAYS TAKE 1 CAPSULE BY [facility] 3 TIMES A DAY take 1 capsule by [facility] three times a day 1000 ml sodium [...] Comment on above: Take 1 tablet by [facility] two times a day. triamcinolone acetonide 0.25 [...] other organ involvement (HCC) , 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 TAKE 3 TABLETS BY MOUTH DAILY WITH FOOD. HOLD IF ON ANTIBIOTICS OR ILL. 90 tablet 3 02/16/2023 Active Start: 08-19-2022 End: 11-24-2022 take 2 tablets by mouth once daily at mealtime azaTHIOprine (IMURAN) 50 mg tablet Indications: Other systemic lupus erythematosus with other organ involvement (HCC) , 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 Take 2tab daily [...] on above: Take 1 capsule by [facility] once daily. ergocalciferol 1.25 mg oral capsule [...] every week ergocalciferol (Vitamin D-2) 1.25 MG (34526 UT) capsule Take 1 capsule (50,000 Units) [...] 0 03/06/2021 Active take 1 capsule by [facility] every week ergocalciferol (Vitamin D2) 1.25 MG (96869 UT) capsule Take 50,000 Units by mouth [...] sources) Drug therapy status; Translations: [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 fdc 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] Episodic Other aftercare (1 source) Polypharmacy ; Translations: [Other fdc (current) drug therapy] Episodic Other circulatory disease [...] [Obesity, Class III, BMI 40-49.9 (morbid obesity) ([facility])] Onset: 09-07-2022 Chronic Other upper [...] (20 sources) Drug therapy finding; Translations: [Other 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 manager (current) drug therapy] Onset: 03-05-2021 Episodic Other aftercare (20 sources) H/O: high risk medication; Translations: [Other 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 manager (current) drug therapy] Onset: 06-15-2022 06-15-2022 Episodic Other aftercare (1 source) Other 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 manager (current) drug therapy; Translations: [OTH STREETCAR CONDUCTOR 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 THERAPY] Onset: 03-23-2022 Episodic Other aftercare (20 sources) Long-term 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 systemic steroid; Translations: [senior care (current) use of 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] Onset: 02-04-2023 [...] Reference Range Facility CNNURSEon 07-13-2023 CNNURSE Normal [facility] ECG 12 Leadon 07-13-2023 ECG revealed normal sinus rhythm [facility] Work Phone: CNPNon 06-12-2023 CNPN Normal [facility] 25(OH)D3 SerPl-mCncon 2023 25-hydroxyvitamin D3 [Mass/Vol] 17.3 ng/mL Low 31.0-80.0 [facility] Comment on above: Order Comment: Speci men Type: BLOOD SPECIMENOrdering Facility: [facility] Address: [address] [place] [address] Result Comment: Clas sification of 25 [place] Vitamin D status:Deficiency/Insufficiency: < or = 30 ng/ml.Sufficiency/Optimal Levels: 31-80 ng/mLToxicity: > 100 ng/mL.Test performed by chemiluminescent immunoassay. Performed By: #### 1 989-3 ####[facility] LABCLIA [id number] [address] [place] CBC panel Auto (Bld)on 06-10 Erythrocyte distribution width (RBC) [Ratio] 14.5 % Normal 11.5-15.0 [facility] Comment on above: Order Comment: Speci men Type: BLOOD SPECIMENOrdering Facility: [facility] Address: [address] [place] [address] Performed By: #### 5 8410-2 ####[facility] LABCLIA [id number] [place] [address] Hematocrit (Bld) [Volume fraction] 43.1 % Normal 36.0-46.0 [facility] Comment on above: Order Comment: Speci men Type: BLOOD SPECIMENOrdering Facility: [facility] Address: [address] [place] [address] Performed By: #### 5 8410-2 ####[facility] LABCLIA [id number] [place] [address] Hemoglobin (Bld) [Mass/Vol] 13.9 g/dL Normal 11.5-15.5 [facility] Comment on above: Order Comment: Speci men Type: BLOOD SPECIMENOrdering Facility: [facility] Address: [address] [place] [address] Performed By: #### 5 8410-2 ####[facility] LABCLIA [id number] [place] [address] MCH (RBC) [Entitic mass] 30.6 pg Normal 26.0-34.0 [facility] Comment on above: Order Comment: Speci men Type: BLOOD SPECIMENOrdering Facility: [facility] Address: [address] [place] [address] Performed By: #### 5 8410-2 ####[facility] LABIA [id number] [place] [address] MCHC (RBC) [Mass/Vol] 32.3 g/dL Normal 30.5-36.0 [facility] Comment on above: Order Comment: Speci men Type: BLOOD SPECIMENOrdering Facility: [facility] Address: [address] [place] [address] Performed By: #### 5 8410-2 ####[facility] LABIA [id number] [place] [address] MCV (RBC) [Entitic vol] 94.9 fL Normal 80.0-100.0 [facility] Comment on above: Order Comment: Speci men Type: BLOOD SPECIMENOrdering Facility: [facility] Address: [address] [place] [address] Performed By: #### 5 8410-2 ####[facility] LABCLIA [id number] [place] [address] Nucleated RBC (Bld) [#/Vol] 10*3/uL Normal <0.01 [facility] Comment on above: Order Comment: Speci men Type: BLOOD SPECIMENOrdering Facility: [facility] Address: [address] [place] [address] Performed By: #### 5 8410-2 ####[facility] LABCLIA [id number] [place] [address] Platelet mean volume (Bld) [Entitic vol] 9.5 fL Normal 9.0-12.7 [facility] Comment on above: Order Comment: Speci men Type: BLOOD SPECIMENOrdering Facility: [facility] Address: [address] [place] [address] Performed By: #### 5 8410-2 ####[facility] LABCLIA [id number] [place] [address] Platelets (Bld) [#/Vol] 320 10*3/uL Normal 150-400 [facility] Comment on above: Order Comment: Speci men Type: BLOOD SPECIMENOrdering Facility: [facility] Address: [address] [place] [address] Performed By: #### 5 8410-2 ####[facility] LABIA [id number] [place] [address] RBC (Bld) [#/Vol] 4.54 10*6/uL Normal 3.90-5.20 [facility] Comment on above: Order Comment: Speci men Type: BLOOD SPECIMENOrdering Facility: [facility] Address: [address] [place] [address] Performed By: #### 5 8410-2 ####[facility] LABIA [id number] [place] [address] WBC (Bld) [#/Vol] 15.15 10*3/uL High 3.70-11.00 [facility] Comment on above: Order Comment: Speci men Type: BLOOD SPECIMENOrdering Facility: [facility] Address: [address] [place] [address] Performed By: #### 5 8410-2 ####[facility] LABIA [id number] [place] [address] CNNURSEon 06-10-2023 CNNURSE Normal [facility] CNOVSPon 06-10-2023 CNOVSP Normal [facility] CRP SerPl-mCncon 06-10-2023 CRP [Mass/Vol] mg/L Normal <0.9 [facility] Comment on above: Order Comment: Speci men Type: BLOOD SPECIMENOrdering Facility: [facility] Address: [address] [place] [address] Performed By: #### 1 988-5 ####[facility] LABCLIA [id number] [facility] [id number] VILLE [id number] [facility] Comprehensive metabolic 2000 panelon 06-10-2023 Albumin [Mass/Vol] 4.1 g/dL Normal 3.9-4.9 [facility] Comment on above: Order Comment: Speci men Type: BLOOD SPECIMENOrdering Facility: [facility] Address: [address] [place] [address] Performed By: #### 2 4323-8 ####[facility] LABCLIA [id number] [place] [address] ALP [Catalytic activity/Vol] 72 U/L Normal 34-123 [facility] Comment on above: Order Comment: Speci men Type: BLOOD SPECIMENOrdering Facility: [facility] Address: [address] [place] [address] Performed By: #### 2 4323-8 ####[facility] LABCLIA [id number] [place] [address] ALT [Catalytic activity/Vol] 22 U/L Normal 7-38 [facility] Comment on above: Order Comment: Speci men Type: BLOOD SPECIMENOrdering Facility: [facility] Address: [address] [place] [address] Performed By: #### 2 4323-8 ####[facility] LABCLIA [id number] [place] [address] Anion gap [Moles/Vol] 10 mmol/L Normal 9-18 [facility] Comment on above: Order Comment: Speci men Type: BLOOD SPECIMENOrdering Facility: [facility] Address: [address] [place] [address] Performed By: #### 2 4323-8 ####[facility] LABCLIA [id number] [place] [address] AST [Catalytic activity/Vol] 9 U/L Low 13-35 [facility] Comment on above: Order Comment: Speci men Type: BLOOD SPECIMENOrdering Facility: [facility] Address: [address] [place] [address] Performed By: #### 2 4323-8 ####[facility] LABCLIA [id number] [place] [address] Bilirubin [Mass/Vol] 0.2 mg/dL Normal 0.2-1.3 [facility] Comment on above: Order Comment: Speci men Type: BLOOD SPECIMENOrdering Facility: [facility] Address: [address] [place] [address] Performed By: #### 2 4323-8 ####[facility] LABCLIA [id number] [place] [address] Calcium [Mass/Vol] 9.8 mg/dL Normal 8.5-10.2 [facility] Comment on above: Order Comment: Speci men Type: BLOOD SPECIMENOrdering Facility: [facility] Address: [address] [place] [address] Performed By: #### 2 4323-8 ####[facility] LABCLIA [id number] [place] [address] Chloride [Moles/Vol] 107 mmol/L High 97-105 [facility] Comment on above: Order Comment: Speci men Type: BLOOD SPECIMENOrdering Facility: [facility] Address: [address] [place] [address] Performed By: #### 2 4323-8 ####[facility] LABCLIA [id number] [place] [address] CO2 [Moles/Vol] 24 mmol/L Normal 22-30 [facility] Comment on above: Order Comment: Speci men Type: BLOOD SPECIMENOrdering Facility: [facility] Address: [address] [place] [address] Performed By: #### 2 4323-8 ####[facility] LABCLIA [id number] [place] [address] Creatinine [Mass/Vol] 0.80 mg/dL Normal 0.58-0.96 [facility] Comment on above: Order Comment: Speci men Type: BLOOD SPECIMENOrdering Facility: [facility] Address: [address] [place] [address] Performed By: #### 2 4323-8 ####[facility] LABCLIA [id number] [place] [address] Creatinine and Glomerular filtration rate.predicted panel (S/P/Bld) 94 mL/min/1.73m??? Normal >=60 [facility] Comment on above: Order Comment: Speci men Type: BLOOD SPECIMENOrdering Facility: [facility] Address: [address] [place] [address] Result Comment: Erin mated Glomerular Filtration Rate [...] actual GFR. Performed By: #### 2 4323-8 ####[facility] LABCLIA [id number] [place] [address] Glucose [Mass/Vol] 98 mg/dL Normal 74-99 [facility] Comment on above: Order Comment: Semaj cortés Type: BLOOD SPECIMENOrdering Facility: [facility] Address: [address] [place] [address] Result Comment: The [place] [employer] (ADA) provides guidance for cutoff [...] Standards of Medical Care in Diabetes 2016, [place] [employer]. Diabetes Care. 2016.39(Suppl 1). Performed By: #### 2 4323-8 ####[facility] LABCLIA [id number] [place] [address] Potassium [Moles/Vol] 3.6 mmol/L Low 3.7-5.1 [facility] Comment on above: Order Comment: Speci men Type: BLOOD SPECIMENOrdering Facility: [facility] Address: [address] [place] [address] Performed By: #### 2 4323-8 ####[facility] LABCLIA [id number] [place] [address] Protein [Mass/Vol] 7.0 g/dL Normal 6.3-8.0 [facility] Comment on above: Order Comment: Speci men Type: BLOOD SPECIMENOrdering Facility: [facility] Address: [address] [place] [address] Performed By: #### 2 4323-8 ####[facility] LABCLIA [id number] [place] [address] Sodium [Moles/Vol] 141 mmol/L Normal 136-144 [facility] Comment on above: Order Comment: Speci men Type: BLOOD SPECIMENOrdering Facility: [facility] Address: [address] [place] [address] Performed By: #### 2 4323-8 ####[facility] LABCLIA [id number] [place] [address] Urea nitrogen [Mass/Vol] 17 mg/dL Normal 7-21 [facility] Comment on above: Order Comment: Speci men Type: BLOOD SPECIMENOrdering Facility: [facility] Address: [address] [place] [address] Performed By: #### 2 4323-8 ####[facility] LABCLIA [id number] [place] [address] ESR Westergren method (Bld) [Velocity]on 06-10-2023 ESR (Bld) [Velocity] 28 mm/h High 0-20 [facility] Comment on above: Order Comment: Speci men Type: BLOOD SPECIMENOrdering Facility: [facility] Address: [address] [place] [address] Performed By: #### 4 537-7 ####[facility] LABCLIA [id number] [place] [address] [place] CBC W Auto Differential pane l (Bld)on 06-03-2023 Basophils (Bld) [#/Vol] 0.05 10*3/uL Normal <0.11 [facility] Comment on above: Order Comment: Speci men Type: BLOOD SPECIMENOrdering Facility: [facility] Address: [address] [place] [address] Performed By: #### 5 7021-8 ####[facility] LABIA [id number] [place] [address] Basophils/100 WBC (Bld) 0.4 % Normal [facility] Comment on above: Order Comment: Speci men Type: BLOOD SPECIMENOrdering Facility: [facility] Address: [address] [place] [address] Performed By: #### 5 7021-8 ####[facility] LABCLIA [id number] [place] [address] Differential cell count method Nom (Bld) Auto Normal [facility] Comment on above: Order Comment: Speci men Type: BLOOD SPECIMENOrdering Facility: [facility] Address: [address] [place] [address] Performed By: #### 5 7021-8 ####[facility] LABCLIA [id number] [place] [address] Eosinophils (Bld) [#/Vol] 0.14 10*3/uL Normal <0.46 [facility] Comment on above: Order Comment: Speci men Type: BLOOD SPECIMENOrdering Facility: [facility] Address: [address] [place] [address] Performed By: #### 5 7021-8 ####[facility] LABCLIA [id number] [place] [address] Eosinophils/100 WBC (Bld) 1.1 % Normal [facility] Comment on above: Order Comment: Speci men Type: BLOOD SPECIMENOrdering Facility: [facility] Address: [address] [place] [address] Performed By: #### 5 7021-8 ####[facility] LABCLIA [id number] [place] [address] Erythrocyte distribution width (RBC) [Ratio] 14.5 % Normal 11.5-15.0 [facility] Comment on above: Order Comment: Speci men Type: BLOOD SPECIMENOrdering Facility: [facility] Address: [address] [place] [address] Performed By: #### 5 7021-8 ####[facility] LABCLIA [id number] [place] [address] Hematocrit (Bld) [Volume fraction] 40.5 % Normal 36.0-46.0 [facility] Comment on above: Order Comment: Speci men Type: BLOOD SPECIMENOrdering Facility: [facility] Address: [address] [place] [address] Performed By: #### 5 7021-8 ####[facility] LABCLIA [id number] [place] [address] Hemoglobin (Bld) [Mass/Vol] 13.1 g/dL Normal 11.5-15.5 [facility] Comment on above: Order Comment: Speci men Type: BLOOD SPECIMENOrdering Facility: [facility] Address: [address] [place] [address] Performed By: #### 5 7021-8 ####[facility] LABCLIA [id number] [place] [address] Immature granulocytes (Bld) [#/Vol] 0.20 10*3/uL High <0.10 [facility] Comment on above: Order Comment: Speci men Type: BLOOD SPECIMENOrdering Facility: [facility] Address: [address] [place] [address] Performed By: #### 5 7021-8 ####[facility] LABCLIA [id number] [place] [address] Immature granulocytes/100 WBC (Bld) 1.6 % Normal [facility] Comment on above: Order Comment: Speci men Type: BLOOD SPECIMENOrdering Facility: [facility] Address: [address] [place] [address] Performed By: #### 5 7021-8 ####[facility] LABCLIA [id number] [place] [address] Lymphocytes (Bld) [#/Vol] 4.13 10*3/uL High 1.00-4.00 [facility] Comment on above: Order Comment: Speci men Type: BLOOD SPECIMENOrdering Facility: [facility] Address: [address] [place] [address] Performed By: #### 5 7021-8 ####[facility] LABCLIA [id number] [place] [address] Lymphocytes/100 WBC (Bld) 32.1 % Normal [facility] Comment on above: Order Comment: Speci men Type: BLOOD SPECIMENOrdering Facility: [facility] Address: [address] [place] [address] Performed By: #### 5 7021-8 ####[facility] LABCLIA [id number] [place] [address] MCH (RBC) [Entitic mass] 30.8 pg Normal 26.0-34.0 [facility] Comment on above: Order Comment: Speci men Type: BLOOD SPECIMENOrdering Facility: [facility] Address: [address] [place] [address] Performed By: #### 5 7021-8 ####[facility] LABCLIA [id number] [place] [address] MCHC (RBC) [Mass/Vol] 32.3 g/dL Normal 30.5-36.0 [facility] Comment on above: Order Comment: Speci men Type: BLOOD SPECIMENOrdering Facility: [facility] Address: [address] [place] [address] Performed By: #### 5 7021-8 ####[facility] LABCLIA [id number] [place] [address] MCV (RBC) [Entitic vol] 95.1 fL Normal 80.0-100.0 [facility] Comment on above: Order Comment: Speci men Type: BLOOD SPECIMENOrdering Facility: [facility] Address: [address] [place] [address] Performed By: #### 5 7021-8 ####[facility] LABIA [id number] [place] [address] Monocytes (Bld) [#/Vol] 0.79 10*3/uL Normal <0.87 [facility] Comment on above: Order Comment: Speci men Type: BLOOD SPECIMENOrdering Facility: [facility] Address: [address] [place] [address] Performed By: #### 5 7021-8 ####[facility] LABCLIA [id number] [place] [address] Monocytes/100 WBC (Bld) 6.1 % Normal [facility] Comment on above: Order Comment: Speci men Type: BLOOD SPECIMENOrdering Facility: [facility] Address: [address] [place] [address] Performed By: #### 5 7021-8 ####[facility] LABCLIA [id number] [place] [address] Neutrophils (Bld) [#/Vol] 7.56 10*3/uL High 1.45-7.50 [facility] Comment on above: Order Comment: Speci men Type: BLOOD SPECIMENOrdering Facility: [facility] Address: [address] [place] [address] Performed By: #### 5 7021-8 ####[facility] LABCLIA [id number] [place] [address] Neutrophils/100 WBC (Bld) 58.7 % Normal [facility] Comment on above: Order Comment: Speci men Type: BLOOD SPECIMENOrdering Facility: [facility] Address: [address] [place] [address] Performed By: #### 5 7021-8 ####[facility] LABCLIA [id number] [place] [address] Nucleated RBC (Bld) [#/Vol] 10*3/uL Normal <0.01 [facility] Comment on above: Order Comment: Speci men Type: BLOOD SPECIMENOrdering Facility: [facility] Address: [address] [place] [address] Performed By: #### 5 7021-8 ####[facility] LABCLIA [id number] [place] [address] Nucleated RBC/100 WBC (Bld) [Ratio] 0.0 /100 WBC Normal [facility] Comment on above: Order Comment: Speci men Type: BLOOD SPECIMENOrdering Facility: [facility] [facility] Address: [address] [place] [address] Performed By: #### 5 7021-8 ####[facility] LABCLIA [id number] [place] [address] Platelet mean volume (Bld) [Entitic vol] 9.7 fL Normal 9.0-12.7 [facility] Comment on above: Order Comment: Speci men Type: BLOOD SPECIMENOrdering Facility: [facility] Address: [address] [place] [address] Performed By: #### 5 7021-8 ####[facility] LABCLIA [id number] [place] [address] Platelets (Bld) [#/Vol] 261 10*3/uL Normal 150-400 [facility] Comment on above: Order Comment: Speci men Type: BLOOD SPECIMENOrdering Facility: [facility] Address: [address] [place] [address] Performed By: #### 5 7021-8 ####[facility] LABCLIA [id number] [place] [address] RBC (Bld) [#/Vol] 4.26 10*6/uL Normal 3.90-5.20 [facility] Comment on above: Order Comment: Speci men Type: BLOOD SPECIMENOrdering Facility: [facility] Address: [address] [place] [address] Performed By: #### 5 7021-8 ####[facility] LABCLIA [id number] [place] [address] WBC (Bld) [#/Vol] 12.87 10*3/uL High 3.70-11.00 [facility] Comment on above: Order Comment: Speci men Type: BLOOD SPECIMENOrdering Facility: [facility] Address: [address] [place] [address] Performed By: #### 5 7021-8 ####[facility] LABCLIA [id number] [place] [address] Comprehensive metabolic 2000 panelon 06-03-2023 Albumin [Mass/Vol] 4.0 g/dL Normal 3.9-4.9 [facility] Comment on above: Order Comment: Speci men Type: BLOOD SPECIMENOrdering Facility: [facility] Address: [address] [place] [address] Performed By: #### 2 4323-8 ####[facility] LABCLIA [id number] [place] [address] ALP [Catalytic activity/Vol] 73 U/L Normal 34-123 [facility] Comment on above: Order Comment: Speci men Type: BLOOD SPECIMENOrdering Facility: [facility] Address: [address] [place] [address] Performed By: #### 2 4323-8 ####[facility] LABCLIA [id number] [place] [address] ALT [Catalytic activity/Vol] 21 U/L Normal 7-38 [facility] Comment on above: Order Comment: Speci men Type: BLOOD SPECIMENOrdering Facility: [facility] Address: [address] [place] [address] Performed By: #### 2 4323-8 ####[facility] LABCLIA [id number] [place] [address] Anion gap [Moles/Vol] 10 mmol/L Normal 9-18 [facility] Comment on above: Order Comment: Speci men Type: BLOOD SPECIMENOrdering Facility: [facility] Address: [address] [place] [address] Performed By: #### 2 4323-8 ####[facility] LABCLIA [id number] [place] [address] AST [Catalytic activity/Vol] 10 U/L Low 13-35 [facility] Comment on above: Order Comment: Speci men Type: BLOOD SPECIMENOrdering Facility: [facility] Address: [address] [place] [address] Performed By: #### 2 4323-8 ####[facility] LABCLIA [id number] [place] [address] Bilirubin [Mass/Vol] 0.2 mg/dL Normal 0.2-1.3 [facility] Comment on above: Order Comment: Speci men Type: BLOOD SPECIMENOrdering Facility: [facility] Address: [address] [place] [address] Performed By: #### 2 4323-8 ####[facility] LABCLIA [id number] [place] [address] Calcium [Mass/Vol] 9.6 mg/dL Normal 8.5-10.2 [facility] Comment on above: Order Comment: Speci men Type: BLOOD SPECIMENOrdering Facility: [facility] Address: [address] [place] [address] Performed By: #### 2 4323-8 ####[facility] LABCLIA [id number] [place] [address] Chloride [Moles/Vol] 108 mmol/L High 97-105 [facility] Comment on above: Order Comment: Speci men Type: BLOOD SPECIMENOrdering Facility: [facility] Address: [address] [place] [address] Performed By: #### 2 4323-8 ####[facility] LABCLIA [id number] [place] [address] CO2 [Moles/Vol] 24 mmol/L Normal 22-30 [facility] Comment on above: Order Comment: Speci men Type: BLOOD SPECIMENOrdering Facility: [facility] Address: [address] [place] [address] Performed By: #### 2 4323-8 ####[facility] LABCLIA [id number] [place] [address] Creatinine [Mass/Vol] 0.70 mg/dL Normal 0.58-0.96 [facility] Comment on above: Order Comment: Speci men Type: BLOOD SPECIMENOrdering Facility: [facility] Address: [address] [place] [address] Performed By: #### 2 4323-8 ####[facility] LABIA [id number] [place] [address] Creatinine and Glomerular filtration rate.predicted panel (S/P/Bld) 111 mL/min/1.73m??? Normal >=60 [facility] Comment on above: Order Comment: Speci men Type: BLOOD SPECIMENOrdering Facility: [facility] Address: [address] [place] [address] Result Comment: Erin mated Glomerular Filtration Rate [...] actual GFR. Performed By: #### 2 4323-8 ####[facility] LABCLIA [id number] [place] [address] Glucose [Mass/Vol] 106 mg/dL High 74-99 [facility] Comment on above: Order Comment: Semaj cortés Type: BLOOD SPECIMENOrdering Facility: [facility] Address: [address] [place] [address] Result Comment: The [place] [employer] (ADA) provides guidance for cutoff [...] Standards of Medical Care in Diabetes 2016, [place] [employer]. Diabetes Care. 2016.39(Suppl 1). Performed By: #### 2 4323-8 ####[facility] LABCLIA [id number] [place] [address] Potassium [Moles/Vol] 4.0 mmol/L Normal 3.7-5.1 [facility] Comment on above: Order Comment: Semaj cortés Type: BLOOD SPECIMENOrdering Facility: [facility] Address: [address] [place] [address] Performed By: #### 2 4323-8 ####[facility] LABCLIA [id number] [place] [address] Protein [Mass/Vol] 6.8 g/dL Normal 6.3-8.0 [facility] Comment on above: Order Comment: Speci men Type: BLOOD SPECIMENOrdering Facility: [facility] Address: [address] [place] [address] Performed By: #### 2 4323-8 ####[facility] LABCLIA [id number] [place] [address] Sodium [Moles/Vol] 142 mmol/L Normal 136-144 [facility] Comment on above: Order Comment: Speci men Type: BLOOD SPECIMENOrdering Facility: [facility] Address: [address] [place] [address] Performed By: #### 2 4323-8 ####[facility] LABCLIA [id number] [place] [address] Urea nitrogen [Mass/Vol] 12 mg/dL Normal 7-21 [facility] Comment on above: Order Comment: Speci men Type: BLOOD SPECIMENOrdering Facility: [facility] Address: [address] [place] [address] Performed By: #### 2 4323-8 ####[facility] LABCLIA [id number] [place] [address] ESR Westergren method (Bld) [Velocity]on 06-03-2023 ESR (Bld) [Velocity] 35 mm/h High 0-20 [facility] Comment on above: Order Comment: Speci men Type: BLOOD SPECIMENOrdering Facility: [facility] Address: [address] [place] [address] Performed By: #### 4 537-7 ####[facility] LABCLIA [id number] [place] [address] [place] Ferritin SerPl-mCncon 2023 Ferritin [Mass/Vol] 23.4 ng/mL Normal 14.7-205.1 [facility] Comment on above: Order Comment: Speci men Type: BLOOD SPECIMENOrdering Facility: [facility] Address: [address] [place] [address] Performed By: #### 5 0190-8, 2132-01, 2275-08, 2283-12 ####[facility] LABCLIA [id number] [place] [address] [place] Folate SerPl-mCncon 06-03-19 Folate [Mass/Vol] 8.2 ng/mL Normal >4.7 [facility] Comment on above: Order Comment: Speci men Type: BLOOD SPECIMENOrdering Facility: [facility] Address: [address] [place] [address] Performed By: #### 5 0190-8, 2132-01, 2275-08, 2283-12 ####[facility] LABCLIA [id number] [place] [address] [place] Iron and Iron binding capaci ty panelon 06-03-2023 Iron [Mass/Vol] 67 ug/dL Normal 41-186 [facility] Comment on above: Order Comment: Speci men Type: BLOOD SPECIMENOrdering Facility: [facility] Address: [address] [place] [address] Performed By: #### 5 0190-8, 2132-01, 2275-08, 2283-12 ####[facility] LABCLIA [id number] [place] [address] [place] Iron binding capacity [Mass/Vol] 395 ug/dL High 232-386 [facility] Comment on above: Order Comment: Speci men Type: BLOOD SPECIMENOrdering Facility: [facility] Address: [address] [place] [address] Performed By: #### 5 0190-8, 2132-01, 2275-08, 2283-12 ####[facility] LABCLIA [id number] [place] [address] [place] Iron/TIBC [Molar ratio] 17.0 % Normal 15.0-57.0 [facility] Comment on above: Order Comment: Speci men Type: BLOOD SPECIMENOrdering Facility: [facility] Address: [address] [facility] [address] Performed By: #### 5 0190-8, 2131-9, 6-4, 8 ####[facility] LABCLIA [id number] [address] [place] Vit B12 SerPl-ncon 024 Cobalamin (Vitamin B12) [Mass/Vol] 428 pg/mL Normal 232-1245 [facility] Comment on above: Order Comment: Speci men Type: BLOOD SPECIMENOrdering Facility: [facility] Address: [address] [place] [address] Performed By: #### 5 0190-8, 9, 6-4, 8 ####[facility] LABCLIA [id number] [address] [place] CNNURSEon 05-10-2023 CNNURSE Normal [facility] XR CERVICAL SPINE COMPLETE 4 [...] Normal Not Available CNPNon 04-22-2023 CNPN Normal [facility] CNNURSEon 04-16-2023 CNNURSE Normal [facility] CNOVSPon 04-16-2023 CNOVSP Normal [facility] CBC W Auto Differential pane l (Bld)on 04-09-2023 Basophils (Bld) [#/Vol] 0.05 10*3/uL Normal <0.11 [facility] Comment on above: Order Comment: Speci men Type: BLOOD SPECIMENOrdering Facility: [facility] Address: [address] [place] [address] Performed By: #### 5 7021-8 ####[facility] LABCLIA [id number] [place] [address] Basophils/100 WBC (Bld) 0.5 % Normal [facility] Comment on above: Order Comment: Speci men Type: BLOOD SPECIMENOrdering Facility: [facility] Address: [address] [place] [address] Performed By: #### 5 7021-8 ####[facility] LABCLIA [id number] [place] [address] Differential cell count method Nom (Bld) Auto Normal [facility] Comment on above: Order Comment: Speci men Type: BLOOD SPECIMENOrdering Facility: [facility] Address: [address] [place], [place] [address] Performed By: #### 5 7021-8 ####[facility] LABCLIA [id number] [place] [address] Eosinophils (Bld) [#/Vol] 0.09 10*3/uL Normal <0.46 [facility] Comment on above: Order Comment: Speci men Type: BLOOD SPECIMENOrdering Facility: [facility] Address: [address] [place] [address] Performed By: #### 5 7021-8 ####[facility] LABCLIA [id number] [place] [address] Eosinophils/100 WBC (Bld) 0.9 % Normal [facility] Comment on above: Order Comment: Speci men Type: BLOOD SPECIMENOrdering Facility: [facility] Address: [address] [place] [address] Performed By: #### 5 7021-8 ####[facility] LABCLIA [id number] [place] [address] Erythrocyte distribution width (RBC) [Ratio] 14.8 % Normal 11.5-15.0 [facility] Comment on above: Order Comment: Speci men Type: BLOOD SPECIMENOrdering Facility: [facility] Address: [address] [place] [address] Performed By: #### 5 7021-8 ####[facility] LABCLIA [id number] [place] [address] Hematocrit (Bld) [Volume fraction] 41.1 % Normal 36.0-46.0 [facility] Comment on above: Order Comment: Speci men Type: BLOOD SPECIMENOrdering Facility: [facility] Address: [address] [place] [address] Performed By: #### 5 7021-8 ####[facility] LABCLIA [id number] [place] [address] Hemoglobin (Bld) [Mass/Vol] 13.1 g/dL Normal 11.5-15.5 [facility] Comment on above: Order Comment: Speci men Type: BLOOD SPECIMENOrdering Facility: [facility] Address: [address] [place] [address] Performed By: #### 5 7021-8 ####[facility] LABCLIA [id number] [place] [address] Immature granulocytes (Bld) [#/Vol] 0.05 10*3/uL Normal <0.10 [facility] Comment on above: Order Comment: Speci men Type: BLOOD SPECIMENOrdering Facility: [facility] Address: [address] [place] [address] Performed By: #### 5 7021-8 ####[facility] LABCLIA [id number] [place] [address] Immature granulocytes/100 WBC (Bld) 0.5 % Normal [facility] Comment on above: Order Comment: Speci men Type: BLOOD SPECIMENOrdering Facility: [facility] Address: [address] [place] [address] Performed By: #### 5 7021-8 ####[facility] LABCLIA [id number] [place] [address] Lymphocytes (Bld) [#/Vol] 2.90 10*3/uL Normal 1.00-4.00 [facility] Comment on above: Order Comment: Speci men Type: BLOOD SPECIMENOrdering Facility: [facility] Address: [address] [place] [address] Performed By: #### 5 7021-8 ####[facility] LABCLIA [id number] [place] [address] Lymphocytes/100 WBC (Bld) 28.9 % Normal [facility] Comment on above: Order Comment: Speci men Type: BLOOD SPECIMENOrdering Facility: [facility] Address: [address] [place] [address] Performed By: #### 5 7021-8 ####[facility] LABCLIA [id number] [place] [address] MCH (RBC) [Entitic mass] 30.5 pg Normal 26.0-34.0 [facility] Comment on above: Order Comment: Speci men Type: BLOOD SPECIMENOrdering Facility: [facility] Address: [address] [place] [address] Performed By: #### 5 7021-8 ####[facility] LABCLIA [id number] [place] [address] MCHC (RBC) [Mass/Vol] 31.9 g/dL Normal 30.5-36.0 [facility] Comment on above: Order Comment: Speci men Type: BLOOD SPECIMENOrdering Facility: [facility] Address: [address] [place] [address] Performed By: #### 5 7021-8 ####[facility] LABIA [id number] [place] [address] MCV (RBC) [Entitic vol] 95.8 fL Normal 80.0-100.0 [facility] Comment on above: Order Comment: Speci men Type: BLOOD SPECIMENOrdering Facility: [facility] Address: [address] [place] [address] Performed By: #### 5 7021-8 ####[facility] LABCLIA [id number] [place] [address] Monocytes (Bld) [#/Vol] 0.54 10*3/uL Normal <0.87 [facility] Comment on above: Order Comment: Speci men Type: BLOOD SPECIMENOrdering Facility: [facility] Address: [address] [place] [address] Performed By: #### 5 7021-8 ####[facility] LABIA [id number] [place] [address] Monocytes/100 WBC (Bld) 5.4 % Normal [facility] Comment on above: Order Comment: Speci men Type: BLOOD SPECIMENOrdering Facility: [facility] Address: [address] [place] [address] Performed By: #### 5 7021-8 ####[facility] LABCLIA [id number] [place] [address] Neutrophils (Bld) [#/Vol] 6.41 10*3/uL Normal 1.45-7.50 [facility] Comment on above: Order Comment: Speci men Type: BLOOD SPECIMENOrdering Facility: [facility] Address: [address] [place] [address] Performed By: #### 5 7021-8 ####[facility] LABCLIA [id number] [place] [address] Neutrophils/100 WBC (Bld) 63.8 % Normal [facility] Comment on above: Order Comment: Speci men Type: BLOOD SPECIMENOrdering Facility: [facility] Address: [address] [place] [address] Performed By: #### 5 7021-8 ####[facility] LABCLIA [id number] [place] [address] Nucleated RBC (Bld) [#/Vol] 10*3/uL Normal <0.01 [facility] Comment on above: Order Comment: Speci men Type: BLOOD SPECIMENOrdering Facility: [facility] Address: [address] [place] [address] Performed By: #### 5 7021-8 ####[facility] LABCLIA [id number] [place] [address] Nucleated RBC/100 WBC (Bld) [Ratio] 0.0 /100 WBC Normal [facility] Comment on above: Order Comment: Speci men Type: BLOOD SPECIMENOrdering Facility: [facility] Address: [address] [place] [address] Performed By: #### 5 7021-8 ####[facility] LABCLIA [id number] [place] [address] Platelet mean volume (Bld) [Entitic vol] 9.4 fL Normal 9.0-12.7 [facility] Comment on above: Order Comment: Speci men Type: BLOOD SPECIMENOrdering Facility: [facility] Address: [address] [place] [address] Performed By: #### 5 7021-8 ####[facility] LABIA [id number] [place] [address] Platelets (Bld) [#/Vol] 290 10*3/uL Normal 150-400 [facility] Comment on above: Order Comment: Speci men Type: BLOOD SPECIMENOrdering Facility: [facility] Address: [address] [place] [address] Performed By: #### 5 7021-8 ####[facility] LABIA [id number] [place] [address] RBC (Bld) [#/Vol] 4.29 10*6/uL Normal 3.90-5.20 [facility] Comment on above: Order Comment: Speci men Type: BLOOD SPECIMENOrdering Facility: [facility] Address: [address] [place] [address] Performed By: #### 5 7021-8 ####[facility] LABIA [id number] [place] [address] WBC (Bld) [#/Vol] 10.04 10*3/uL Normal 3.70-11.00 [facility] Comment on above: Order Comment: Speci men Type: BLOOD SPECIMENOrdering Facility: [facility] Address: [address] [place] [address] Performed By: #### 5 7021-8 ####[facility] LABIA [id number] [place] [address] Comprehensive metabolic 2000 panelon 04-09-2023 Albumin [Mass/Vol] 4.1 g/dL Normal 3.9-4.9 [facility] Comment on above: Order Comment: Speci men Type: BLOOD SPECIMENOrdering Facility: [facility] Address: [address] [place] [address] Performed By: #### 2 4323-8 ####[facility] LABCLIA [id number] [place] [address] ALP [Catalytic activity/Vol] 74 U/L Normal 34-123 [facility] Comment on above: Order Comment: Speci men Type: BLOOD SPECIMENOrdering Facility: [facility] Address: [address] [place] [address] Performed By: #### 2 4323-8 ####[facility] LABCLIA [id number] [place] [address] ALT [Catalytic activity/Vol] 17 U/L Normal 7-38 [facility] Comment on above: Order Comment: Speci men Type: BLOOD SPECIMENOrdering Facility: [facility] Address: [address] [place] [address] Performed By: #### 2 4323-8 ####[facility] LABCLIA [id number] [place] [address] Anion gap [Moles/Vol] 12 mmol/L Normal 9-18 [facility] Comment on above: Order Comment: Speci men Type: BLOOD SPECIMENOrdering Facility: [facility] Address: [address] [place] [address] Performed By: #### 2 4323-8 ####[facility] LABCLIA [id number] [place] [address] AST [Catalytic activity/Vol] 11 U/L Low 13-35 [facility] Comment on above: Order Comment: Speci men Type: BLOOD SPECIMENOrdering Facility: [facility] Address: [address] [place] [address] Performed By: #### 2 4323-8 ####[facility] LABCLIA [id number] [place] [address] Bilirubin [Mass/Vol] 0.2 mg/dL Normal 0.2-1.3 [facility] Comment on above: Order Comment: Speci men Type: BLOOD SPECIMENOrdering Facility: [facility] Address: [address] [place] [address] Performed By: #### 2 4323-8 ####[facility] LABCLIA [id number] [place] [address] Calcium [Mass/Vol] 9.4 mg/dL Normal 8.5-10.2 [facility] Comment on above: Order Comment: Speci men Type: BLOOD SPECIMENOrdering Facility: [facility] Address: [address] [place] [address] Performed By: #### 2 4323-8 ####[facility] LABCLIA [id number] [place] [address] Chloride [Moles/Vol] 106 mmol/L High 97-105 [facility] Comment on above: Order Comment: Speci men Type: BLOOD SPECIMENOrdering Facility: [facility] Address: [address] [place] [address] Performed By: #### 2 4323-8 ####[facility] LABCLIA [id number] [place] [address] CO2 [Moles/Vol] 26 mmol/L Normal 22-30 [facility] Comment on above: Order Comment: Speci men Type: BLOOD SPECIMENOrdering Facility: [facility] Address: [address] [place] [address] Performed By: #### 2 4323-8 ####[facility] LABCLIA [id number] [place] [address] Creatinine [Mass/Vol] 0.89 mg/dL Normal 0.58-0.96 [facility] Comment on above: Order Comment: Speci men Type: BLOOD SPECIMENOrdering Facility: [facility] Address: [address] [place] [address] Performed By: #### 2 4323-8 ####[facility] LABCLIA [id number] [place] [address] Creatinine and Glomerular filtration rate.predicted panel (S/P/Bld) 83 mL/min/1.73m??? Normal >=60 [facility] Comment on above: Order Comment: Semaj cortés Type: BLOOD SPECIMENOrdering Facility: [facility] Address: [address] [place] [address] Result Comment: Erin mated Glomerular Filtration Rate [...] actual GFR. Performed By: #### 2 4323-8 ####[facility] LABCLIA [id number] [place] [address] Glucose [Mass/Vol] 120 mg/dL High 74-99 [facility] Comment on above: Order Comment: Semaj cortés Type: BLOOD SPECIMENOrdering Facility: [facility] Address: [address] [place] [address] Result Comment: The [place] [employer] (ADA) provides guidance for cutoff [...] Standards of Medical Care in Diabetes 2016, [place] [employer]. Diabetes Care. 2016.39(Suppl 1). Performed By: #### 2 4323-8 ####[facility] LABCLIA [id number] [place] [address] Potassium [Moles/Vol] 3.7 mmol/L Normal 3.7-5.1 [facility] Comment on above: Order Comment: Semaj cortés Type: BLOOD SPECIMENOrdering Facility: [facility] Address: [place] [address] Performed By: #### 2 4323-8 ####[facility] LABCLIA [id number] [place] [address] Protein [Mass/Vol] 6.7 g/dL Normal 6.3-8.0 [facility] Comment on above: Order Comment: Speci men Type: BLOOD SPECIMENOrdering Facility: [facility] Address: [address] [place] [address] Performed By: #### 2 4323-8 ####[facility] LABCLIA [id number] [place] [address] Sodium [Moles/Vol] 144 mmol/L Normal 136-144 [facility] Comment on above: Order Comment: Speci men Type: BLOOD SPECIMENOrdering Facility: [facility] Address: [address] [place] [address] Performed By: #### 2 4323-8 ####[facility] LABCLIA [id number] [place] [address] Urea nitrogen [Mass/Vol] 24 mg/dL High 7-21 [facility] Comment on above: Order Comment: Speci men Type: BLOOD SPECIMENOrdering Facility: [facility] Address: [address] [place] [address] Performed By: #### 2 4323-8 ####[facility] LABCLIA [id number] [place] [address] Ferritin SerPl-mCncon 2022 Ferritin [Mass/Vol] 21.2 ng/mL Normal 14.7-205.1 [facility] Comment on above: Order Comment: Speci men Type: BLOOD SPECIMENOrdering Facility: [facility] Address: [address] [place] [address] Performed By: #### 2 276-4, 2284-8, 22673-2, 2132-9 ####[facility] LABCLIA [id number] [address] [address], [place] [address] [place] Folate SerPl-mCncon 04-09-20 23 Folate [Mass/Vol] 10.7 ng/mL Normal >4.7 [facility] Comment on above: Order Comment: Speci men Type: BLOOD SPECIMENOrdering Facility: [facility] Address: [address] [place] [address] Performed By: #### 2 276-4, 2284-8, 45425-8, 2132-9 ####[facility] LABIA [id number] [place] [address] [place] INSULIN ANTIBODY BLDon 04-09 Insulin Ab Qn (S) <0.4 Normal <0.4 [facility] Comment on above: Order Comment: Speci men Type: BLOOD SPECIMENOrdering Facility: [facility] Address: [address] [place] [address] Result Comment: Anti -insulin antibody test is used as an aid in diagnosis and prognosis of autoimmune diabetes mellitus in combination with other tests such as anti-GAD65 and anti-IA-2 antibody. A single negative result cannot rule out autoimmune diabetes mellitus. The test is not reliable in patients who had previously received exogenous insulin. Clinical correlation is required. Performed By: #### I NSLAB ####[facility] [id number] [place] [address] [place] INSULIN ANTIBODY, QUALITATIVE Negative Normal Negative [facility] Comment on above: Order Comment: Speci men Type: BLOOD SPECIMENOrdering Facility: [facility] Address: [address] [place] [address] Performed By: #### I NSLAB ####[facility] LABIA [id number] [place] [address] [place] Insulin SerPl-aCncon 023 Insulin Qn 266.5 u[IU]/mL High 3.0-25.0 [facility] Comment on above: Order Comment: Speci men Type: BLOOD SPECIMENOrdering Facility: [facility] Address: [address] [place] [address] Performed By: #### 2 0448-7 ####[facility] LABIA [id number] [place] [address] [place] Iron and Iron binding capaci ty panelon 04-09-2023 Iron [Mass/Vol] 105 ug/dL Normal 41-186 [facility] Comment on above: Order Comment: Speci men Type: BLOOD SPECIMENOrdering Facility: [facility] Address: [address] [place] [address] Performed By: #### 2 276-4, 2284-8, 49856-7, 9 ####[facility] LABIA [id number] [place] [address] [place] Iron binding capacity [Mass/Vol] 414 ug/dL High 232-386 [facility] Comment on above: Order Comment: Speci men Type: BLOOD SPECIMENOrdering Facility: [facility] Address: [address] [place] [address] Performed By: #### 2 276-4, 2284-8, 52853-5, 9 ####[facility] [id number] [place] [address] [place] Iron/TIBC [Molar ratio] 25.4 % Normal 15.0-57.0 [facility] Comment on above: Order Comment: Speci men Type: BLOOD SPECIMENOrdering Facility: [facility] Address: [address] [place] [address] Performed By: #### 2 276-4, 2284-8, 99301-8, 9 ####[facility] [id number] [place] [address] [place] Vit B12 SerPl-mCncon 023 Cobalamin (Vitamin B12) [Mass/Vol] 370 pg/mL Normal 232-1245 [facility] Comment on above: Order Comment: Speci men Type: BLOOD SPECIMENOrdering Facility: [facility] Address: [address] [place] [address] Performed By: #### 2 276-4, 2284-8, 63284-2, 2132-9 ####[facility] LABCLIA [id number] [place] [address] [place] CNNURSEon 03-19-2023 CNNURSE Normal [facility] CNNURSEon 03-11-2023 CNNURSE Normal [facility] CNPNon 03-01-2023 CNPN Normal [facility] CNNURSEon 02-19-2023 CNNURSE Normal [facility] CNOVSPon 02-19-2023 CNOVSP Normal [facility] B2 Microglob SerPl-mCncon Wvur-1-Bqtnezmeubgbc [Mass/Vol] 1.9 ug/mL Normal 0.8-2.4 [facility] Comment on above: Order Comment: Speci men Type: BLOOD SPECIMENOrdering Facility: [facility] Address: [address] [place] [address] Result Comment: Beta -2 Microglobulin test is performed using the [employer] immunoturbidimetric method. Results obtained with different methods or kits cannot be used interchangeably. Performed By: #### 1 952-1, 97510-2, 2276-4 ####[facility] LABCLIA [id number] [place] [address] [place] CBC W Auto Differential pane l (Bld)on 02-11-2023 Basophils (Bld) [#/Vol] 0.08 10*3/uL Normal <0.11 [facility] Comment on above: Order Comment: Speci men Type: BLOOD SPECIMENOrdering Facility: [facility] Address: [address] [id number] Performed By: #### 5 7021-8 ####[facility] LABCLIA [id number] [place] [address] Basophils/100 WBC (Bld) 0.8 % Normal [facility] Comment on above: Order Comment: Speci men Type: BLOOD SPECIMENOrdering Facility: [facility] Address: [address] [place] [address] Performed By: #### 5 7021-8 ####[facility] LABCLIA [id number] [place] [address] Differential cell count method Nom (Bld) Auto Normal [facility] Comment on above: Order Comment: Speci men Type: BLOOD SPECIMENOrdering Facility: [facility] Address: [address] [place] [address] Performed By: #### 5 7021-8 ####[facility] LABCLIA [id number] [place] [address] Eosinophils (Bld) [#/Vol] 0.16 10*3/uL Normal <0.46 [facility] Comment on above: Order Comment: Speci men Type: BLOOD SPECIMENOrdering Facility: [facility] Address: [address] [place] [address] Performed By: #### 5 7021-8 ####[facility] LABCLIA [id number] [place] [address] Eosinophils/100 WBC (Bld) 1.6 % Normal [facility] Comment on above: Order Comment: Speci men Type: BLOOD SPECIMENOrdering Facility: [facility] Address: [address] [place] [address] Performed By: #### 5 7021-8 ####[facility] LABCLIA [id number] [place] [address] Erythrocyte distribution width (RBC) [Ratio] 14.6 % Normal 11.5-15.0 [facility] Comment on above: Order Comment: Speci men Type: BLOOD SPECIMENOrdering Facility: [facility] Address: [address] [place] [address] Performed By: #### 5 7021-8 ####[facility] LABCLIA [id number] [place] [address] Hematocrit (Bld) [Volume fraction] 41.0 % Normal 36.0-46.0 [facility] Comment on above: Order Comment: Speci men Type: BLOOD SPECIMENOrdering Facility: [facility] Address: [address] [place] [address] Performed By: #### 5 7021-8 ####[facility] LABCLIA [id number] [place] [address] Hemoglobin (Bld) [Mass/Vol] 13.2 g/dL Normal 11.5-15.5 [facility] Comment on above: Order Comment: Speci men Type: BLOOD SPECIMENOrdering Facility: [facility] Address: [address] [place] [place] [address] Performed By: #### 5 7021-8 ####[facility] LABIA [id number] [place] [address] Immature granulocytes (Bld) [#/Vol] 0.07 10*3/uL Normal <0.10 [facility] Comment on above: Order Comment: Speci men Type: BLOOD SPECIMENOrdering Facility: [facility] Address: [address] [place] [place] [address] Performed By: #### 5 7021-8 ####[facility] LABIA [id number] [place] [address] Immature granulocytes/100 WBC (Bld) 0.7 % Normal [facility] Comment on above: Order Comment: Speci men Type: BLOOD SPECIMENOrdering Facility: [facility] Address: [address] [place] [address] Performed By: #### 5 7021-8 ####[facility] LABIA [id number] [place] [address] Lymphocytes (Bld) [#/Vol] 2.29 10*3/uL Normal 1.00-4.00 [facility] Comment on above: Order Comment: Speci men Type: BLOOD SPECIMENOrdering Facility: [facility] Address: [address] [place] [address] Performed By: #### 5 7021-8 ####[facility] LABCLIA [id number] [place] [address] Lymphocytes/100 WBC (Bld) 22.4 % Normal [facility] Comment on above: Order Comment: Speci men Type: BLOOD SPECIMENOrdering Facility: [facility] Address: [address] [place] [address] Performed By: #### 5 7021-8 ####[facility] LABCLIA [id number] [place] [address] MCH (RBC) [Entitic mass] 30.6 pg Normal 26.0-34.0 [facility] Comment on above: Order Comment: Speci men Type: BLOOD SPECIMENOrdering Facility: [facility] Address: [address] [place] [address] Performed By: #### 5 7021-8 ####[facility] LABIA [id number] [place] [address] MCHC (RBC) [Mass/Vol] 32.2 g/dL Normal 30.5-36.0 [facility] Comment on above: Order Comment: Speci men Type: BLOOD SPECIMENOrdering Facility: [facility] Address: [address] [place] [address] Performed By: #### 5 7021-8 ####[facility] LABCLIA [id number] [place] [address] MCV (RBC) [Entitic vol] 94.9 fL Normal 80.0-100.0 [facility] Comment on above: Order Comment: Speci men Type: BLOOD SPECIMENOrdering Facility: [facility] Address: [address] [place] [address] Performed By: #### 5 7021-8 ####[facility] LABIA [id number] [place] [address] Monocytes (Bld) [#/Vol] 0.62 10*3/uL Normal <0.87 [facility] Comment on above: Order Comment: Speci men Type: BLOOD SPECIMENOrdering Facility: [facility] Address: [address] [place] [place] [address] Performed By: #### 5 7021-8 ####[facility] LABCLIA [id number] [place] [address] Monocytes/100 WBC (Bld) 6.1 % Normal [facility] Comment on above: Order Comment: Speci men Type: BLOOD SPECIMENOrdering Facility: [facility] Address: [address] [place] [address] Performed By: #### 5 7021-8 ####[facility] LABCLIA [id number] [place] [address] Neutrophils (Bld) [#/Vol] 6.99 10*3/uL Normal 1.45-7.50 [facility] Comment on above: Order Comment: Speci men Type: BLOOD SPECIMENOrdering Facility: [facility] Address: [address] [place] [address] Performed By: #### 5 7021-8 ####[facility] LABCLIA [id number] [place] [address] Neutrophils/100 WBC (Bld) 68.4 % Normal [facility] Comment on above: Order Comment: Speci men Type: BLOOD SPECIMENOrdering Facility: [facility] Address: [address] Performed By: #### 5 7021-8 ####[facility] LABCLIA [id number] [place] [address] Nucleated RBC (Bld) [#/Vol] 10*3/uL Normal <0.01 [facility] Comment on above: Order Comment: Speci men Type: BLOOD SPECIMENOrdering Facility: [facility] Address: [address] [place] [address] Performed By: #### 5 7021-8 ####[facility] LABCLIA [id number] [place] [address] Nucleated RBC/100 WBC (Bld) [Ratio] 0.0 /100 WBC Normal [facility] Comment on above: Order Comment: Speci men Type: BLOOD SPECIMENOrdering Facility: [facility] Address: [address] [place] [address] Performed By: #### 5 7021-8 ####[facility] LABIA [id number] [place] [address] Platelet mean volume (Bld) [Entitic vol] 9.6 fL Normal 9.0-12.7 [facility] Comment on above: Order Comment: Speci men Type: BLOOD SPECIMENOrdering Facility: [facility] Address: [address] [place] [address] Performed By: #### 5 7021-8 ####[facility] LABIA [id number] [place] [address] Platelets (Bld) [#/Vol] 258 10*3/uL Normal 150-400 [facility] Comment on above: Order Comment: Speci men Type: BLOOD SPECIMENOrdering Facility: [facility] Address: [address] [place] [address] Performed By: #### 5 7021-8 ####[facility] LABIA [id number] [place] [address] RBC (Bld) [#/Vol] 4.32 10*6/uL Normal 3.90-5.20 [facility] Comment on above: Order Comment: Speci men Type: BLOOD SPECIMENOrdering Facility: [facility] Address: [address] [place] [address] Performed By: #### 5 7021-8 ####[facility] LABIA [id number] [place] [address] WBC (Bld) [#/Vol] 10.21 10*3/uL Normal 3.70-11.00 [facility] Comment on above: Order Comment: Speci men Type: BLOOD SPECIMENOrdering Facility: [facility] Address: [address] [place], [place] [address] Performed By: #### 5 7021-8 ####[facility] LABCLIA [id number] [place] [address] Calcium.ionized [Moles/Vol]o n 02-11-2023 Calcium.ionized (Bld) [Mass/Vol] 1.32 mmol/L High 1.08-1.30 [facility] Comment on above: Order Comment: Speci men Type: BLOOD SPECIMENOrdering Facility: [facility] Address: [address] [place] [address] Performed By: #### 1 995-0 ####[facility] LABIA [id number] [place] [address] [place] Calcium.ionized adjusted to pH 7.4 (Bld) [Moles/Vol] 1.27 mmol/L Normal 1.08-1.30 [facility] Comment on above: Order Comment: Speci men Type: BLOOD SPECIMENOrdering Facility: [facility] Address: [address] [place] [address] Performed By: #### 1 995-0 ####[facility] LABIA [id number] [place] [address] [place] Comprehensive metabolic 2000 panelon 02-11-2023 Albumin [Mass/Vol] 4.0 g/dL Normal 3.9-4.9 [facility] Comment on above: Order Comment: Speci men Type: BLOOD SPECIMENOrdering Facility: [facility] Address: [address] [place], [place] [address] Performed By: #### 2 4323-8, 2532-0, 2777-1, 3084-1 ####[facility] LABCLIA [id number] [place] [address] ALP [Catalytic activity/Vol] 75 U/L Normal 34-123 [facility] Comment on above: Order Comment: Speci men Type: BLOOD SPECIMENOrdering Facility: [facility] Address: [address] [place] [place] [address] Performed By: #### 2 4323-8, 2532-0, 2776-1, 3083-1 ####[facility] LABCLIA [id number] [place] [address] ALT [Catalytic activity/Vol] 21 U/L Normal 7-38 [facility] Comment on above: Order Comment: Speci men Type: BLOOD SPECIMENOrdering Facility: [facility] Address: [address] [place] [address] Performed By: #### 2 4323-8, 2532-0, 2776-1, 3083-1 ####[facility] LABIA [id number] [place] [address] Anion gap [Moles/Vol] 11 mmol/L Normal 9-18 [facility] Comment on above: Order Comment: Speci men Type: BLOOD SPECIMENOrdering Facility: [facility] Address: [address] [place] [address] Performed By: #### 2 4323-8, 2-0, 2776-, 3083- ####[facility] LABIA [id number] [place] [address] AST [Catalytic activity/Vol] 11 U/L Low 13-35 [facility] Comment on above: Order Comment: Speci men Type: BLOOD SPECIMENOrdering Facility: [facility] Address: [address] [place] [address] Performed By: #### 2 4323-8, 2532-0, 2776-1, 3083-1 ####[facility] LABIA [id number] [place] [address] Bilirubin [Mass/Vol] mg/dL Low 0.2-1.3 [facility] Comment on above: Order Comment: Speci men Type: BLOOD SPECIMENOrdering Facility: [facility] Address: [address] Performed By: #### 2 4323-8, 2532-0, 2777-1, 3084-1 ####[facility] LABCLIA [id number] [place] [address] Calcium [Mass/Vol] 9.7 mg/dL Normal 8.5-10.2 [facility] Comment on above: Order Comment: Speci men Type: BLOOD SPECIMENOrdering Facility: [facility] Address: [address] [address] Performed By: #### 2 4323-8, 2532-0, 2777-1, 3084-1 ####[facility] LABCLIA [id number] [place] [address] Chloride [Moles/Vol] 107 mmol/L High 97-105 [facility] Comment on above: Order Comment: Speci men Type: BLOOD SPECIMENOrdering Facility: [facility] Address: [address] [address] Performed By: #### 2 4323-8, 2532-0, 2777-1, 3083-1 ####[facility] LABCLIA [id number] [place] [address] CO2 [Moles/Vol] 23 mmol/L Normal 22-30 [facility] Comment on above: Order Comment: Speci men Type: BLOOD SPECIMENOrdering Facility: [facility] Address: [address] [address] Performed By: #### 2 4323-8, 2532-0, 2777-1, 3084-1 ####[facility] LABCLIA [id number] [place] [address] Creatinine [Mass/Vol] 0.76 mg/dL Normal 0.58-0.96 [facility] Comment on above: Order Comment: Speci men Type: BLOOD SPECIMENOrdering Facility: [facility] Address: [address] [address] Performed By: #### 2 4323-8, 2532-0, 2777-1, 3084-1 ####[facility] LABCLIA [id number] [place] [address] Creatinine and Glomerular filtration rate.predicted panel (S/P/Bld) 100 mL/min/1.73m??? Normal >=60 [facility] Comment on above: Order Comment: Semaj cortés Type: BLOOD SPECIMENOrdering Facility: [facility] Address: [address] [place] [address] Result Comment: Erin mated Glomerular Filtration Rate [...] By: #### 2 4323-8, 2532-0, 2777-1, 3084-1 ####[facility] LABCLIA [id number] [place] [address] Glucose [Mass/Vol] 164 mg/dL High 74-99 [facility] Comment on above: Order Comment: Semaj cortés Type: BLOOD SPECIMENOrdering Facility: [facility] Address: [address] [place] [address] Result Comment: The [place] [employer] (ADA) provides guidance for cutoff [...] Standards of Medical Care in Diabetes 2016, [place] [employer]. Diabetes Care. 2016.39(Suppl 1). Performed By: #### 2 4323-8, 2532-0, 2777-1, 3084-1 ####[facility] LABIA [id number] [place] [address] Potassium [Moles/Vol] 4.0 mmol/L Normal 3.7-5.1 [facility] Comment on above: Order Comment: Speci men Type: BLOOD SPECIMENOrdering Facility: [facility] Address: [address] [address] Performed By: #### 2 4323-8, 2532-0, 2777-1, 3084-1 ####[facility] LABIA [id number] [place] [address] Protein [Mass/Vol] 6.5 g/dL Normal 6.3-8.0 [facility] Comment on above: Order Comment: Speci men Type: BLOOD SPECIMENOrdering Facility: [facility] Address: [address] [place] [address] Performed By: #### 2 4323-8, 2532-0, 7-1, 3084-1 ####[facility]ENTERDAPHNE [facility] [id number] [place] [address] Sodium [Moles/Vol] 141 mmol/L Normal 136-144 [facility] Comment on above: Order Comment: Speci men Type: BLOOD SPECIMENOrdering Facility: [facility] Address: [address] [address] Performed By: #### 2 4323-8, 2532-0, 2777-1, 3084-1 ####[facility] LABIA [id number] [place] [address] Urea nitrogen [Mass/Vol] 15 mg/dL Normal 7-21 [facility] Comment on above: Order Comment: Speci men Type: BLOOD SPECIMENOrdering Facility: [facility] Address: [address] [address] Performed By: #### 2 4323-8, 2532-0, 2777-1, 3084-1 ####[facility] LABCLIA [id number] [place] [address] Ferritin SerPl-mCncon 2022 Ferritin [Mass/Vol] 34.2 ng/mL Normal 14.7-205.1 [facility] Comment on above: Order Comment: Speci men Type: BLOOD SPECIMENOrdering Facility: [facility] Address: [address] [place] [address] Performed By: #### 1 952-1, 71118-0, 2276-4 ####[facility] LABCLIA [id number] [address] [place] Folate SerPl-mCncon 02-12-20 Folate [Mass/Vol] ng/mL Normal >4.7 [facility] Comment on above: Order Comment: Speci men Type: BLOOD SPECIMENOrdering Facility: [facility] Address: [address] [place] [address] Result Comment: A re sult of > 20 ng/mL is not necessarily indicative of a pathologic or treatable condition: it reflects a limitation of the test methodology.Assay reference range: 4.8 to 24.2 ng/mL. Suitable for detection of folate deficiency.Reference:Folate III (Folate III) [package insert V 1.0 Finnish]. [facility], [place], [place]: March 2015. Performed By: #### 2 885-2, 2132-9, 2284-8 ####[facility] LABIA [id number] [address] [place] IMMUNOFIXATION SCREEN, SERUM on 02-11-2023 MPA RESULT No M protein is identified. Normal No M protein is identified. [facility] Comment on above: Order Comment: Speci men Type: BLOOD SPECIMENOrdering Facility: [facility] Address: [address] [place] [address] Performed By: #### I [facility] ####[facility] LABCLIA [id number] [address] STAFF REVIEW (MPA) Reviewed by Daphne vyas M.D. Normal [facility] Comment on above: Order Comment: Speci men Type: BLOOD SPECIMENOrdering Facility: [facility] Address: [address] [place] [address] Performed By: #### I FESC ####[facility] LABCLIA [id number] [place] [address] [place] IMMUNOGLOBULINS GAMon 2022 IgA [Mass/Vol] 178 mg/dL Normal 70-400 [facility] Comment on above: Order Comment: Speci men Type: BLOOD SPECIMENOrdering Facility: [facility] Address: [address] [place] [address] Performed By: #### S ERIMM ####[facility] LABCLIA [id number] [address] [place] IgG [Mass/Vol] 534 mg/dL Low 700-1600 [facility] Comment on above: Order Comment: Speci men Type: BLOOD SPECIMENOrdering Facility: [facility] Address: [address] [place] [address] Performed By: #### S ERIMM ####[facility] LABCLIA [id number] [address] [place] IgM [Mass/Vol] 453 mg/dL High 40-230 [facility] Comment on above: Order Comment: Speci men Type: BLOOD SPECIMENOrdering Facility: [facility] Address: [address] [place] [address] Performed By: #### S ERIMM ####[facility] LABIA [id number] [place] [address] [place] Iron and Iron binding capaci ty panelon 02-11-2023 Iron [Mass/Vol] 55 ug/dL Normal 41-186 [facility] Comment on above: Order Comment: Speci men Type: BLOOD SPECIMENOrdering Facility: [facility] Address: [address] [address] Performed By: #### 1 952-1, 07381-5, 2276-4 ####[facility] LABCLIA [id number] [place] [address] [place] Iron binding capacity [Mass/Vol] 339 ug/dL Normal 232-386 [facility] Comment on above: Order Comment: Speci men Type: BLOOD SPECIMENOrdering Facility: [facility] Address: [address] [address] Performed By: #### 1 952-1, 97491-0, 6-4 ####[facility] LABCLIA [id number] [place] [address] [place] Iron/TIBC [Molar ratio] 16.2 % Normal 15.0-57.0 [facility] Comment on above: Order Comment: Speci men Type: BLOOD SPECIMENOrdering Facility: [facility] Address: [address] [place] [address] Performed By: #### 1 952-1, 81256-3, 2275-4 ####[facility] LABIA [id number] [place] [address] [place] KAPPA/FARMER,FREE,SERon 2022 Immunoglobulin light chains.kappa.free (S) [Mass/Vol] 13.1 mg/L Normal 3.3-19.4 [facility] Comment on above: Order Comment: Speci [facility] Type: BLOOD SPECIMENOrdering Facility: [facility] Address: [address] [place] [address] Result Comment: Rare ly, increased serum free light chains levels may not be detected or accurately quantified due to prozone phenomenon or in high viscosity samples using this immunoturbidimetric assay. Correlation with other laboratory results and clinical findings is recommended.The Carney Free Light Chain was performed using the Binding Site Optilite immunoturbidimetric method. Result obtained with different assay methods or kits cannot be used interchangeably. Performed By: #### K LFRS ####[facility] LABCLIA [id number] [address] Immunoglobulin light chains.kappa/Immunog lobulin light chains.lambda (S) [Mass ratio] 1.22 Normal 0.26-1.65 [facility] Comment on above: Order Comment: Speci men Type: BLOOD SPECIMENOrdering Facility: [facility] Address: [address] [place] [address] Performed By: #### K LFRS ####[facility] [id number] [address] Immunoglobulin light chains.lambda.free [Mass/Vol] 10.7 mg/L Normal 5.7-26.3 [facility] Comment on above: Order Comment: Speci [facility] Type: BLOOD SPECIMENOrdering Facility: [facility] Address: [address] [place] [address] Result Comment: Rare ly, increased serum free [...] used interchangeably. Performed By: #### K LFRS ####[facility] LABIA [id number] [place] [address] [place] LDH SerPl-cCncon 02-11-2023 LDH [Catalytic activity/Vol] 190 U/L Normal 135-214 [facility] Comment on above: Order Comment: Speci men Type: BLOOD SPECIMENOrdering Facility: [facility] Address: [address] [place] [address] Result Comment: Hemo lysis present. The origin [...] By: #### 2 4323-8, 2532-0, 2777-1, 3084-1 ####[facility] LABCLIA [id number] [place] [address] PROTEIN ELECTROPHORESIS SERU M (P)on 02-11-2023 Albumin [Mass/Vol] 3.61 g/dL Normal 3.43-5.41 [facility] Comment on above: Order Comment: Speci men Type: BLOOD SPECIMENOrdering Facility: [facility] Address: [address] [place] [address] Performed By: #### L [id number] ####[facility] LABCLIA [id number] [place] [address] [place] Alpha 1 globulin Elph [Mass/Vol] 0.31 g/dL Normal 0.18-0.43 [facility] Comment on above: Order Comment: Speci men Type: BLOOD SPECIMENOrdering Facility: [facility] Address: [address] [place] [address] Performed By: #### L [id number] ####[facility] LABCLIA [id number] [address] [place] Alpha 2 globulin Elph [Mass/Vol] 0.76 g/dL Normal 0.42-0.98 [facility] Comment on above: Order Comment: Speci men Type: BLOOD SPECIMENOrdering Facility: [facility] Address: [address] [address] Performed By: #### L [id number] ####[facility] LABCLIA [id number] [place] [address] [place] Beta globulin Elph [Mass/Vol] 0.85 g/dL Normal 0.61-1.17 [facility] Comment on above: Order Comment: Speci men Type: BLOOD SPECIMENOrdering Facility: [facility] Address: [address] [place] [address] Performed By: #### L [id number] ####[facility] LABCLIA [id number] [place] [address] [place] Gamma globulin Elph [Mass/Vol] 0.66 g/dL Normal 0.53-1.51 [facility] Comment on above: Order Comment: Speci men Type: BLOOD SPECIMENOrdering Facility: [facility] Address: [address] [place] [address] Performed By: #### L [id number] ####[facility] LABIA [id number] [address] [place] M-PROTEIN LOCATION Normal [facility] Comment on above: Order Comment: Speci men Type: BLOOD SPECIMENOrdering Facility: [facility] Address: [address] [place] [address] Result Comment: Not Applicable. Performed By: #### L [id number] ####[facility] LABIA [id number] [place] [address] [place] Protein Fractions [Interp] No definitive M protein is identified on protein electrophoresis. Normal No definitive M protein is identified on protein electrophor esis. [facility] Comment on above: Order Comment: Speci men Type: BLOOD SPECIMENOrdering Facility: [facility] Address: [address] [place], [place] [address] Performed By: #### L [id number] ####[facility] LABIA [id number] [address] [place] Protein.monoclonal Elph [Mass/Vol] 0.00 g/dL Normal <=0.00 [facility] Comment on above: Order Comment: Speci men Type: BLOOD SPECIMENOrdering Facility: [facility] Address: [address] [place] [address] Performed By: #### L [id number] ####[facility] LABCLIA [id number] [place] [address] [place] SPE STAFF REVIEW Reviewed by Daphne vyas M.D. [facility] Comment on above: Order Comment: Speci men Type: BLOOD SPECIMENOrdering Facility: [facility] Address: [address] [place] [address] Performed By: #### L [id number] ####[facility] LABCLIA [id number] [place] [address] [place] Phosphate SerPl-mCncon 02-11 Phosphate [Mass/Vol] 3.4 mg/dL Normal 2.7-4.8 [facility] Comment on above: Order Comment: Speci men Type: BLOOD SPECIMENOrdering Facility: [facility] Address: [address] [place] [address] Performed By: #### 2 4323-8, 2532-0, 2777-1, 3084-1 ####[facility] LABCLIA [id number] [place] [address] Prot SerPl-mCncon 02-11-2023 Protein [Mass/Vol] 6.2 g/dL Low 6.3-8.0 [facility] Comment on above: Order Comment: Speci men Type: BLOOD SPECIMENOrdering Facility: [facility] Address: [address] [place] [address] Performed By: #### 2 885-2, 2132-9, 2284-8 ####[facility] LABCLIA [id number] [place] [address] [place] Urate SerPl-mCncon Urate [Mass/Vol] 4.3 mg/dL Normal 2.5-6.6 [facility] Comment on above: Order Comment: Speci men Type: BLOOD SPECIMENOrdering Facility: [facility] Address: [address] [place] [address] Performed By: #### 2 4323-8, 2532-0, 2777-1, 3084-1 ####[facility] LABCLIA [id number] [place] [address] Vit B12 [facility] 023 Cobalamin (Vitamin B12) [Mass/Vol] 598 pg/mL Normal 232-1245 [facility] Comment on above: Order Comment: Speci men Type: BLOOD SPECIMENOrdering Facility: [facility] Address: [address] [place] [address] Performed By: #### 2 885-2, 2132-9, 2284-8 ####[facility]ITAL[facility] [id number] [address] [place] CNPNon 02-04-2023 CNPN Normal [facility] CNPNon 01-24-2023 CNPN Normal [facility] 25(OH)D3 [facility] 2022 25-hydroxyvitamin D3 [Mass/Vol] 25.1 ng/mL Low 31.0-80.0 [facility] Comment on above: Order Comment: Speci men Type: BLOOD SPECIMENOrdering Facility: [facility] Address: [address] [place] [address] Result Comment: Clas sification of 25 [place] Vitamin D status:Deficiency/Insufficiency: < or = 30 ng/ml.Sufficiency/Optimal Levels: 31-80 ng/mLToxicity: > 100 ng/mL.Test performed by chemiluminescent immunoassay. Performed By: #### 1 989-3 ####[facility] H[facility]PITALIA [id number] [address] [place] CBC panel Auto (Bld)on 01-22 Erythrocyte distribution width (RBC) [Ratio] 14.8 % Normal 11.5-15.0 [facility] Comment on above: Order Comment: Speci men Type: BLOOD SPECIMENOrdering Facility: [facility] Address: [address] [place] [address] Performed By: #### 5 8410-2 ####[facility] LABCLIA [id number] [place] [address] Hematocrit (Bld) [Volume fraction] 40.9 % Normal 36.0-46.0 [facility] Comment on above: Order Comment: Speci men Type: BLOOD SPECIMENOrdering Facility: [facility] Address: [address] [place] [address] Performed By: #### 5 8410-2 ####[facility] LABCLIA [id number] [place] [address] Hemoglobin (Bld) [Mass/Vol] 13.4 g/dL Normal 11.5-15.5 [facility] Comment on above: Order Comment: Speci men Type: BLOOD SPECIMENOrdering Facility: [facility] Address: [address] [place] [address] Performed By: #### 5 8410-2 ####[facility] LABIA [id number] [place] [address] MCH (RBC) [Entitic mass] 30.1 pg Normal 26.0-34.0 [facility] Comment on above: Order Comment: Speci men Type: BLOOD SPECIMENOrdering Facility: [facility] Address: [address] [place] [address] Performed By: #### 5 8410-2 ####[facility] LABCLIA [id number] [place] [address] MCHC (RBC) [Mass/Vol] 32.8 g/dL Normal 30.5-36.0 [facility] Comment on above: Order Comment: Speci men Type: BLOOD SPECIMENOrdering Facility: [facility] Address: [address] [place] [address] Performed By: #### 5 8410-2 ####[facility] LABIA [id number] [place] [address] MCV (RBC) [Entitic vol] 91.9 fL Normal 80.0-100.0 [facility] Comment on above: Order Comment: Speci men Type: BLOOD SPECIMENOrdering Facility: [facility] Address: [address] [address] Performed By: #### 5 8410-2 ####[facility] LABCLIA [id number] [place] [address] Nucleated RBC (Bld) [#/Vol] 10*3/uL Normal <0.01 [facility] Comment on above: Order Comment: Speci men Type: BLOOD SPECIMENOrdering Facility: [facility] Address: [address] [address] Performed By: #### 5 8410-2 ####[facility] LABCLIA [id number] [place] [address] Platelet mean volume (Bld) [Entitic vol] 9.6 fL Normal 9.0-12.7 [facility] Comment on above: Order Comment: Speci men Type: BLOOD SPECIMENOrdering Facility: [facility] Address: [address] [address] Performed By: #### 5 8410-2 ####[facility] LABCLIA [id number] [place] [address] Platelets (Bld) [#/Vol] 285 10*3/uL Normal 150-400 [facility] Comment on above: Order Comment: Speci men Type: BLOOD SPECIMENOrdering Facility: [facility] Address: [address] Performed By: #### 5 8410-2 ####[facility] LABCLIA [id number] [place] [address] RBC (Bld) [#/Vol] 4.45 10*6/uL Normal 3.90-5.20 [facility] Comment on above: Order Comment: Speci men Type: BLOOD SPECIMENOrdering Facility: [facility] Address: [address] [address] Performed By: #### 5 8410-2 ####[facility] LABCLIA [id number] [place] [address] WBC (Bld) [#/Vol] 13.80 10*3/uL High 3.70-11.00 [facility] Comment on above: Order Comment: Speci men Type: BLOOD SPECIMENOrdering Facility: [facility] Address: [address] [place] [address] Performed By: #### 5 8410-2 ####[facility] LABCLIA [id number] [place] [address] CNNURSEon 01-22-2023 CNNURSE Normal [facility] CRP SerPl-mCncon 01-22-2023 CRP [Mass/Vol] mg/L Normal <0.9 [facility] Comment on above: Order Comment: Speci men Type: BLOOD SPECIMENOrdering Facility: [facility] Address: [address] [place] [address] Performed By: #### 1 988-5 ####[facility] LABCLIA [id number] [facility] [id number] [place] [address] Comprehensive metabolic 2000 panelon 01-22-2023 Albumin [Mass/Vol] 4.1 g/dL Normal 3.9-4.9 [facility] Comment on above: Order Comment: Speci men Type: BLOOD SPECIMENOrdering Facility: [facility] Address: [address] [place] [address] Performed By: #### 2 4323-8 ####[facility] LABCLIA [id number] [place] [address] ALP [Catalytic activity/Vol] 62 U/L Normal 34-123 [facility] Comment on above: Order Comment: Speci men Type: BLOOD SPECIMENOrdering Facility: [facility] Address: [address] [place] [address] Performed By: #### 2 4323-8 ####[facility] LABCLIA [id number] [place] [address] ALT [Catalytic activity/Vol] 27 U/L Normal 7-38 [facility] Comment on above: Order Comment: Speci men Type: BLOOD SPECIMENOrdering Facility: [facility] Address: [address] [address] Performed By: #### 2 4323-8 ####[facility] LABCLIA [id number] [place] [address] Anion gap [Moles/Vol] 10 mmol/L Normal 9-18 [facility] Comment on above: Order Comment: Speci men Type: BLOOD SPECIMENOrdering Facility: [facility] Address: [address] [address] Performed By: #### 2 4323-8 ####[facility]ENTERDAPHNE [facility] LABCLIA [id number] [place] [address] AST [Catalytic activity/Vol] 12 U/L Low 13-35 [facility] Comment on above: Order Comment: Speci men Type: BLOOD SPECIMENOrdering Facility: [facility] Address: [address] [address] Performed By: #### 2 4323-8 ####[facility] LABCLIA [id number] [place] [address] Bilirubin [Mass/Vol] 0.2 mg/dL Normal 0.2-1.3 [facility] Comment on above: Order Comment: Speci men Type: BLOOD SPECIMENOrdering Facility: [facility] Address: [address] [address] Performed By: #### 2 4323-8 ####[facility] LABCLIA [id number] [place] [address] Calcium [Mass/Vol] 9.4 mg/dL Normal 8.5-10.2 [facility] Comment on above: Order Comment: Speci men Type: BLOOD SPECIMENOrdering Facility: [facility] Address: [address] [place] [address] Performed By: #### 2 4323-8 ####[facility] LABCLIA [id number] [place] [address] Chloride [Moles/Vol] 107 mmol/L High 97-105 [facility] Comment on above: Order Comment: Speci men Type: BLOOD SPECIMENOrdering Facility: [facility] Address: [address] [place] [address] Performed By: #### 2 4323-8 ####[facility] LABCLIA [id number] [place] [address] CO2 [Moles/Vol] 24 mmol/L Normal 22-30 [facility] Comment on above: Order Comment: Speci men Type: BLOOD SPECIMENOrdering Facility: [facility] Address: [address] [place] [address] Performed By: #### 2 4323-8 ####[facility] LABCLIA [id number] [place] [address] Creatinine [Mass/Vol] 0.71 mg/dL Normal 0.58-0.96 [facility] Comment on above: Order Comment: Speci men Type: BLOOD SPECIMENOrdering Facility: [facility] Address: [address] [place] [address] Performed By: #### 2 4323-8 ####[facility] LABCLIA [id number] [place] [address] Creatinine and Glomerular filtration rate.predicted panel (S/P/Bld) 109 mL/min/1.73m??? Normal >=60 [facility] Comment on above: Order Comment: Speci men Type: BLOOD SPECIMENOrdering Facility: [facility] Address: [address] [place] [address] Result Comment: Erin mated Glomerular Filtration Rate [...] actual GFR. Performed By: #### 2 4323-8 ####[facility] LABIA [id number] [place] [address] Glucose [Mass/Vol] 60 mg/dL Low 74-99 [facility] Comment on above: Order Comment: Semaj cortés Type: BLOOD SPECIMENOrdering Facility: [facility] Address: [address] [place] [address] Result Comment: The [place] [employer] (ADA) provides guidance for cutoff [...] Standards of Medical Care in Diabetes 2016, [place] [employer]. Diabetes Care. 2016.39(Suppl 1). Performed By: #### 2 4323-8 ####[facility] LABIA [id number] [place] [address] Potassium [Moles/Vol] 4.0 mmol/L Normal 3.7-5.1 [facility] Comment on above: Order Comment: Semaj cortés Type: BLOOD SPECIMENOrdering Facility: [facility] Address: [address] [id number] Performed By: #### 2 4323-8 ####[facility] LABIA [id number] [place] [address] Protein [Mass/Vol] 6.7 g/dL Normal 6.3-8.0 [facility] Comment on above: Order Comment: Semaj cortés Type: BLOOD SPECIMENOrdering Facility: [facility] Address: [address] [address] Performed By: #### 2 4323-8 ####[facility] LABCLIA [id number] [place] [address] Sodium [Moles/Vol] 141 mmol/L Normal 136-144 [facility] Comment on above: Order Comment: Speci men Type: BLOOD SPECIMENOrdering Facility: [facility] Address: [address] [place] [address] Performed By: #### 2 4323-8 ####[facility] LABCLIA [id number] [place] [address] Urea nitrogen [Mass/Vol] 13 mg/dL Normal 7-21 [facility] Comment on above: Order Comment: Speci men Type: BLOOD SPECIMENOrdering Facility: [facility] Address: [address] [place] [address] Performed By: #### 2 4323-8 ####[facility] LABCLIA [id number] [place] [address] ESR Westergren method (Bld) [Velocity]on 01-22-2023 ESR (Bld) [Velocity] 20 mm/h Normal 0-20 [facility] Comment on above: Order Comment: Speci men Type: BLOOD SPECIMENOrdering Facility: [facility] Address: [address] [place] [address] Performed By: #### 4 537-7 ####[facility] LABCLIA [id number] [facility] [id number] [address] [place] CNNURSEon 12-29-2022 CNNURSE Normal [facility] CNPNon 12-18-2022 CNPN Normal [facility] CNPNon 12-16-2022 CNPN Normal [facility] CBC W Auto Differential pane l (Bld)on 12-08-2022 Basophils (Bld) [#/Vol] 0.06 10*3/uL Normal <0.11 [facility] Comment on above: Order Comment: Speci men Type: BLOOD SPECIMENOrdering Facility: [facility] Address: [address] [address] Performed By: #### 5 7021-8 ####[facility] LABCLIA [id number] [place] [address] Basophils/100 WBC (Bld) 0.4 % Normal [facility] Comment on above: Order Comment: Speci men Type: BLOOD SPECIMENOrdering Facility: [facility] Address: [address] [place] [address] Performed By: #### 5 7021-8 ####[facility] LABCLIA [id number] [place] [address] Differential cell count method Nom (Bld) Auto Normal [facility] Comment on above: Order Comment: Speci men Type: BLOOD SPECIMENOrdering Facility: [facility] Address: [address] [place] [address] Performed By: #### 5 7021-8 ####[facility] LABCLIA [id number] [place] [address] Eosinophils (Bld) [#/Vol] 0.11 10*3/uL Normal <0.46 [facility] Comment on above: Order Comment: Speci men Type: BLOOD SPECIMENOrdering Facility: [facility] Address: [address] [place] [address] Performed By: #### 5 7021-8 ####[facility] LABCLIA [id number] [place] [address] Eosinophils/100 WBC (Bld) 0.8 % Normal [facility] Comment on above: Order Comment: Speci men Type: BLOOD SPECIMENOrdering Facility: [facility] Address: [address] [place] [address] Performed By: #### 5 7021-8 ####[facility] LABCLIA [id number] [place] [address] Erythrocyte distribution width (RBC) [Ratio] 14.6 % Normal 11.5-15.0 [facility] Comment on above: Order Comment: Speci men Type: BLOOD SPECIMENOrdering Facility: [facility] Address: [address] [address] Performed By: #### 5 7021-8 ####[facility]ENTERDAPH[facility] LABCLIA [id number] [place] [address] Hematocrit (Bld) [Volume fraction] 42.0 % Normal 36.0-46.0 [facility] Comment on above: Order Comment: Speci men Type: BLOOD SPECIMENOrdering Facility: [facility] Address: [address] [place] [address] Performed By: #### 5 7021-8 ####[facility] LABCLIA [id number] [place] [address] Hemoglobin (Bld) [Mass/Vol] 13.3 g/dL Normal 11.5-15.5 [facility] Comment on above: Order Comment: Speci men Type: BLOOD SPECIMENOrdering Facility: [facility] Address: [address] [address] Performed By: #### 5 7021-8 ####[facility] LABCLIA [id number] [place] [address] Immature granulocytes (Bld) [#/Vol] 0.11 10*3/uL High <0.10 [facility] Comment on above: Order Comment: Speci men Type: BLOOD SPECIMENOrdering Facility: [facility] Address: [address] [address] Performed By: #### 5 7021-8 ####[facility] LABIA [id number] [place] [address] Immature granulocytes/100 WBC (Bld) 0.8 % Normal [facility] Comment on above: Order Comment: Speci men Type: BLOOD SPECIMENOrdering Facility: [facility] Address: [address] [address] Performed By: #### 5 7021-8 ####[facility] LABCLIA [id number] [place] [address] Lymphocytes (Bld) [#/Vol] 3.75 10*3/uL Normal 1.00-4.00 [facility] Comment on above: Order Comment: Speci men Type: BLOOD SPECIMENOrdering Facility: [facility] Address: [address] [place] [address] Performed By: #### 5 7021-8 ####[facility] LABCLIA [id number] [place] [address] Lymphocytes/100 WBC (Bld) 27.4 % Normal [facility] Comment on above: Order Comment: Speci men Type: BLOOD SPECIMENOrdering Facility: [facility] Address: [address] [place] [address] Performed By: #### 5 7021-8 ####[facility] LABCLIA [id number] [place] [address] MCH (RBC) [Entitic mass] 29.8 pg Normal 26.0-34.0 [facility] Comment on above: Order Comment: Speci men Type: BLOOD SPECIMENOrdering Facility: [facility] Address: [address] [place] [address] Performed By: #### 5 7021-8 ####[facility] LABCLIA [id number] [place] [address] MCHC (RBC) [Mass/Vol] 31.7 g/dL Normal 30.5-36.0 [facility] Comment on above: Order Comment: Speci men Type: BLOOD SPECIMENOrdering Facility: [facility] Address: [address] [place] [address] Performed By: #### 5 7021-8 ####[facility] LABIA [id number] [place] [address] MCV (RBC) [Entitic vol] 94.0 fL Normal 80.0-100.0 [facility] Comment on above: Order Comment: Speci men Type: BLOOD SPECIMENOrdering Facility: [facility] Address: [address] [address] Performed By: #### 5 7021-8 ####[facility] LABCLIA [id number] [place] [address] Monocytes (Bld) [#/Vol] 1.07 10*3/uL High <0.87 [facility] Comment on above: Order Comment: Speci men Type: BLOOD SPECIMENOrdering Facility: [facility] Address: [address] [address] Performed By: #### 5 7021-8 ####[facility] LABCLIA [id number] [place] [address] Monocytes/100 WBC (Bld) 7.8 % Normal [facility] Comment on above: Order Comment: Speci men Type: BLOOD SPECIMENOrdering Facility: [facility] Address: [address] [place] [address] Performed By: #### 5 7021-8 ####[facility] LABCLIA [id number] [place] [address] Neutrophils (Bld) [#/Vol] 8.57 10*3/uL High 1.45-7.50 [facility] Comment on above: Order Comment: Speci men Type: BLOOD SPECIMENOrdering Facility: [facility] Address: [address] [place] [address] Performed By: #### 5 7021-8 ####[facility] LABCLIA [id number] [place] [address] Neutrophils/100 WBC (Bld) 62.8 % Normal [facility] Comment on above: Order Comment: Speci men Type: BLOOD SPECIMENOrdering Facility: [facility] Address: [address] [place] [address] Performed By: #### 5 7021-8 ####[facility] LABCLIA [id number] [place] [address] Nucleated RBC (Bld) [#/Vol] 10*3/uL Normal <0.01 [facility] Comment on above: Order Comment: Speci men Type: BLOOD SPECIMENOrdering Facility: [facility] Address: [address] [place] [address] Performed By: #### 5 7021-8 ####[facility] LABCLIA [id number] [place] [address] Nucleated RBC/100 WBC (Bld) [Ratio] 0.0 /100 WBC Normal [facility] Comment on above: Order Comment: Speci men Type: BLOOD SPECIMENOrdering Facility: [facility] Address: [address] [place] [address] Performed By: #### 5 7021-8 ####[facility] LABIA [id number] [place] [address] Platelet mean volume (Bld) [Entitic vol] 9.6 fL Normal 9.0-12.7 [facility] Comment on above: Order Comment: Speci men Type: BLOOD SPECIMENOrdering Facility: [facility] Address: [address] [place] [address] Performed By: #### 5 7021-8 ####[facility] LABCLIA [id number] [place] [address] Platelets (Bld) [#/Vol] 301 10*3/uL Normal 150-400 [facility] Comment on above: Order Comment: Speci men Type: BLOOD SPECIMENOrdering Facility: [facility] Address: [address] [place] [address] Performed By: #### 5 7021-8 ####[facility] LABIA [id number] [place] [address] RBC (Bld) [#/Vol] 4.47 10*6/uL Normal 3.90-5.20 [facility] Comment on above: Order Comment: Speci men Type: BLOOD SPECIMENOrdering Facility: [facility] Address: [address] [address] Performed By: #### 5 7021-8 ####[facility] LABCLIA [id number] [place] [address] WBC (Bld) [#/Vol] 13.67 10*3/uL High 3.70-11.00 [facility] Comment on above: Order Comment: Speci men Type: BLOOD SPECIMENOrdering Facility: [facility] Address: [address] [place] [address] Performed By: #### 5 7021-8 ####[facility] LABCL[facility] [id number] [place] [address] CNPNon 12-08-2022 CNPN Normal [facility] metabolic 2000 panelon 12-08-2022 Albumin [Mass/Vol] 4.3 g/dL Normal 3.9-4.9 [facility] Comment on above: Order Comment: Speci men Type: BLOOD SPECIMENOrdering Facility: [facility] Address: [address] [address] Performed By: #### 2 4323-8 ####[facility] LABIA [id number] [place] [address] ALP [Catalytic activity/Vol] 63 U/L Normal 34-123 [facility] Comment on above: Order Comment: Speci men Type: BLOOD SPECIMENOrdering Facility: [facility] Address: [address] [place] [address] Performed By: #### 2 4323-8 ####[facility] LABCLIA [id number] [place] [address] ALT [Catalytic activity/Vol] 19 U/L Normal 7-38 [facility] Comment on above: Order Comment: Speci men Type: BLOOD SPECIMENOrdering Facility: [facility] Address: [address] [place] [address] Performed By: #### 2 4323-8 ####[facility]APH[facility] LABCLIA [id number] [place] [address] Anion gap [Moles/Vol] 5 mmol/L Low 9-18 [facility] Comment on above: Order Comment: Speci men Type: BLOOD SPECIMENOrdering Facility: [facility] Address: [address] [place] [address] Performed By: #### 2 4323-8 ####[facility] LABCLIA [id number] [place] [address] AST [Catalytic activity/Vol] 10 U/L Low 13-35 [facility] Comment on above: Order Comment: Speci men Type: BLOOD SPECIMENOrdering Facility: [facility] Address: [address] [place] [address] Performed By: #### 2 4323-8 ####[facility] LABCLIA [id number] [place] [address] Bilirubin [Mass/Vol] 0.2 mg/dL Normal 0.2-1.3 [facility] Comment on above: Order Comment: Speci men Type: BLOOD SPECIMENOrdering Facility: [facility] Address: [address] [place] [address] Performed By: #### 2 4323-8 ####[facility] LABCLIA [id number] [place] [address] Calcium [Mass/Vol] 9.9 mg/dL Normal 8.5-10.2 [facility] Comment on above: Order Comment: Speci men Type: BLOOD SPECIMENOrdering Facility: [facility] Address: [address] [place] [address] Performed By: #### 2 4323-8 ####[facility] LABCLIA [id number] [place] [address] Chloride [Moles/Vol] 106 mmol/L High 97-105 [facility] Comment on above: Order Comment: Speci men Type: BLOOD SPECIMENOrdering Facility: [facility] Address: [address] [address] Performed By: #### 2 4323-8 ####[facility] LABCLIA [id number] [place] [address] CO2 [Moles/Vol] 26 mmol/L Normal 22-30 [facility] Comment on above: Order Comment: Speci men Type: BLOOD SPECIMENOrdering Facility: [facility] Address: [address] [place] [address] Performed By: #### 2 4323-8 ####[facility] LABCLIA [id number] [place] [address] Creatinine [Mass/Vol] 0.80 mg/dL Normal 0.58-0.96 [facility] Comment on above: Order Comment: Speci men Type: BLOOD SPECIMENOrdering Facility: [facility] Address: [address] [place] [address] Performed By: #### 2 4323-8 ####[facility] LABCLIA [id number] [place] [address] ESTIMATED GLOMERULAR FILTRATION RATE 94 mL/min/1.73m??? Normal >=60 [facility] Comment on above: Order Comment: Speci men Type: BLOOD SPECIMENOrdering Facility: [facility] Address: [address] [place] [address] Result Comment: Erin mated Glomerular Filtration Rate [...] actual GFR. Performed By: #### 2 4323-8 ####[facility] LABCLIA [id number] [place] [address] Glucose [Mass/Vol] 91 mg/dL Normal 74-99 [facility] Comment on above: Order Comment: Speci men Type: BLOOD SPECIMENOrdering Facility: [facility] Address: [address] [id number] Result Comment: The [place] [employer] (ADA) provides guidance for cutoff [...] Standards of Medical Care in Diabetes 2016, [place] [employer]. Diabetes Care. 2016.39(Suppl 1). Performed By: #### 2 4323-8 ####[facility] LABCLIA [id number] [place] [address] Potassium [Moles/Vol] 3.9 mmol/L Normal 3.7-5.1 [facility] Comment on above: Order Comment: Speci [facility] Type: BLOOD SPECIMENOrdering Facility: [facility] Address: [address] Performed By: #### 2 4323-8 ####[facility] LABCLIA [id number] [place] [address] Protein [Mass/Vol] 7.1 g/dL Normal 6.3-8.0 [facility] Comment on above: Order Comment: Speci men Type: BLOOD SPECIMENOrdering Facility: [facility] Address: [address] [phone] Performed By: #### 2 4323-8 ####[facility] LABCLIA [id number] [place] [address] Sodium [Moles/Vol] 137 mmol/L Normal 136-144 [facility] Comment on above: Order Comment: Speci men Type: BLOOD SPECIMENOrdering Facility: [facility] Address: [address] [address] Performed By: #### 2 4323-8 ####[facility] LABCLIA [id number] [place] [address] Urea nitrogen [Mass/Vol] 20 mg/dL Normal 7-21 [facility] Comment on above: Order Comment: Speci men Type: BLOOD SPECIMENOrdering Facility: [facility] Address: [address] [place] [address] Performed By: #### 2 4323-8 ####[facility] LABCLIA [id number] [place] [address] Ferritin SerPl-ncon 2022 Ferritin [Mass/Vol] 26.6 ng/mL Normal 14.7-205.1 [facility] Comment on above: Order Comment: Speci men Type: BLOOD SPECIMENOrdering Facility: [facility] Address: [address] [place] [address] Performed By: #### 5 0190-8, 2131-9, 6-4, 2283-8 ####[facility] LABIA [id number] [place] [address] [place] Folate SerPl-mCncon 12-09-19 Folate [Mass/Vol] 2.6 ng/mL Low >4.7 [facility] Comment on above: Order Comment: Speci men Type: BLOOD SPECIMENOrdering Facility: [facility] Address: [address] [place] [address] Performed By: #### 5 0190-8, 2131-9, 6-4, 2283-8 ####[facility] LABIA [id number] [place] [address] [place] Iron and Iron binding capaci ty panelon 12-08-2022 Iron [Mass/Vol] 48 ug/dL Normal 41-186 [facility] Comment on above: Order Comment: Speci men Type: BLOOD SPECIMENOrdering Facility: [facility] Address: [address] [phone] Performed By: #### 5 0190-8, 9, 2275-08, 2283-12 ####[facility] LABCLIA [id number] [place] [address] [place] Iron binding capacity [Mass/Vol] 382 ug/dL Normal 232-386 [facility] Comment on above: Order Comment: Speci men Type: BLOOD SPECIMENOrdering Facility: [facility] Address: [address] [address] Performed By: #### 5 0190-8, 9, 2275-08, 2283-12 ####[facility] LABIA [id number] [place] [address] [place] Iron/TIBC [Molar ratio] 12.6 % Low 15.0-57.0 [facility] Comment on above: Order Comment: Speci men Type: BLOOD SPECIMENOrdering Facility: [facility] Address: [address] [place] [address] Performed By: #### 5 0190-8, 9, 2275-08, 2283-12 ####[facility] LABIA [id number] [place] [address] [place] Vit B12 [facility] 07-18-2 023 Cobalamin (Vitamin B12) [Mass/Vol] 336 pg/mL Normal 232-1245 [facility] Comment on above: Order Comment: Speci men Type: BLOOD SPECIMENOrdering Facility: [facility] Address: [address] [phone] Performed By: #### 5 0190-8, 9, 2275-08, 2283-12 ####[facility] LABIA [id number] [place] [address] [place] CNNURSEon 11-19-2022 CNNURSE Normal [facility] CNPNon 06-10-2023 CNPN Normal [facility] CNNURSEon 10-22-2022 CNNURSE Normal [facility] CNOVSPon 10-22-2022 CNOVSP Normal [facility] TPMT PHENOTYPE/ENZYME ACTIVI TYon 10-22-2022 TPMT ACTIVITY 33.5 U/mL Normal 24.0-44.0 [facility] Comment on above: Order Comment: Speci men Type: BLOOD SPECIMENOrdering Facility: [facility] Address: [address] [place] [id number] Result Comment: INTE RPRETIVE INFORMATION: Thiopurine Methyltransferase, [...] was developed and its performance characteristicsdetermined by [employer] It has not been cleared orapproved by the [place] Food and Drug Administration. This test wasperformed in a CLIA certified laboratory and is intended forclinical purposes.Performed By: [facility] [place], [place] [address]Bdrxmirnld Director: Ole Love MD, PhD Performed By: #### T PMT ####Alma JohnsIA [id number] [place] [address] CNPNon 10-16-2022 CNPN Normal [facility] 25(OH)D3 [facility] 2022 25-hydroxyvitamin D3 [Mass/Vol] 28.3 ng/mL Low 31.0-80.0 [facility] Comment on above: Order Comment: Speci men Type: BLOOD SPECIMENOrdering Facility: [facility] Address: [address] [place] [address] Result Comment: Clas sification of 25 [place] Vitamin D status:Deficiency/Insufficiency: < or = 30 ng/ml.Sufficiency/Optimal Levels: 31-80 ng/mLToxicity: > 100 ng/mL.Test performed by chemiluminescent immunoassay. Performed By: #### 1 989-3 ####[facility] LABCLIA [id number] [address] [place] CBC W Auto Differential pane l (Bld)on 10-15-2022 Basophils (Bld) [#/Vol] 0.07 10*3/uL Normal <0.11 [facility] Comment on above: Order Comment: Speci men Type: BLOOD SPECIMENOrdering Facility: [facility] Address: [address] [place] [address] Performed By: #### 5 7021-8 ####[facility] LABCLIA [id number] [place] [address] Basophils/100 WBC (Bld) 0.6 % Normal [facility] Comment on above: Order Comment: Speci men Type: BLOOD SPECIMENOrdering Facility: [facility] Address: [address] [place] [address] Performed By: #### 5 7021-8 ####[facility] LABCLIA [id number] [place] [address] Differential cell count method Nom (Bld) Auto Normal [facility] Comment on above: Order Comment: Speci men Type: BLOOD SPECIMENOrdering Facility: [facility] Address: [address] [place] [address] Performed By: #### 5 7021-8 ####[facility] LABCLIA [id number] [place] [address] Eosinophils (Bld) [#/Vol] 0.16 10*3/uL Normal <0.46 [facility] Comment on above: Order Comment: Speci men Type: BLOOD SPECIMENOrdering Facility: [facility] Address: [address] [place] [address] Performed By: #### 5 7021-8 ####[facility] LABCLIA [id number] [place] [address] Eosinophils/100 WBC (Bld) 1.3 % Normal [facility] Comment on above: Order Comment: Speci men Type: BLOOD SPECIMENOrdering Facility: [facility] Address: [address] [place] [address] Performed By: #### 5 7021-8 ####[facility] LABCLIA [id number] [place] [address] Erythrocyte distribution width (RBC) [Ratio] 14.6 % Normal 11.5-15.0 [facility] Comment on above: Order Comment: Speci men Type: BLOOD SPECIMENOrdering Facility: [facility] Address: [address] [place] [address] Performed By: #### 5 7021-8 ####[facility] LABCLIA [id number] [place] [address] Hematocrit (Bld) [Volume fraction] 40.8 % Normal 36.0-46.0 [facility] Comment on above: Order Comment: Speci men Type: BLOOD SPECIMENOrdering Facility: [facility] Address: [address] [place] [address] Performed By: #### 5 7021-8 ####[facility] LABCLIA [id number] [place] [address] Hemoglobin (Bld) [Mass/Vol] 13.1 g/dL Normal 11.5-15.5 [facility] Comment on above: Order Comment: Speci men Type: BLOOD SPECIMENOrdering Facility: [facility] Address: [address] [place] [address] Performed By: #### 5 7021-8 ####[facility] LABCLIA [id number] [place] [address] Immature granulocytes (Bld) [#/Vol] 0.07 10*3/uL Normal <0.10 [facility] Comment on above: Order Comment: Speci men Type: BLOOD SPECIMENOrdering Facility: [facility] Address: [address] [place] [address] Performed By: #### 5 7021-8 ####[facility] LABCLIA [id number] [place] [address] Immature granulocytes/100 WBC (Bld) 0.6 % Normal [facility] Comment on above: Order Comment: Speci men Type: BLOOD SPECIMENOrdering Facility: [facility] Address: [address] [place] [address] Performed By: #### 5 7021-8 ####[facility] LABCLIA [id number] [place] [address] Lymphocytes (Bld) [#/Vol] 3.62 10*3/uL Normal 1.00-4.00 [facility] Comment on above: Order Comment: Speci men Type: BLOOD SPECIMENOrdering Facility: [facility] Address: [address] [place] [address] Performed By: #### 5 7021-8 ####[facility] LABCLIA [id number] [place] [address] Lymphocytes/100 WBC (Bld) 30.3 % Normal [facility] Comment on above: Order Comment: Speci men Type: BLOOD SPECIMENOrdering Facility: [facility] Address: [address] [place] [address] Performed By: #### 5 7021-8 ####[facility] LABCLIA [id number] [place] [address] MCH (RBC) [Entitic mass] 29.2 pg Normal 26.0-34.0 [facility] Comment on above: Order Comment: Speci men Type: BLOOD SPECIMENOrdering Facility: [facility] Address: [address] [place] [address] Performed By: #### 5 7021-8 ####[facility] LABCLIA [id number] [place] [address] MCHC (RBC) [Mass/Vol] 32.1 g/dL Normal 30.5-36.0 [facility] Comment on above: Order Comment: Speci men Type: BLOOD SPECIMENOrdering Facility: [facility] Address: [address] [place] [address] Performed By: #### 5 7021-8 ####[facility] LABCLIA [id number] [place] [address] MCV (RBC) [Entitic vol] 90.9 fL Normal 80.0-100.0 [facility] Comment on above: Order Comment: Speci men Type: BLOOD SPECIMENOrdering Facility: [facility] Address: [address] [place] [address] Performed By: #### 5 7021-8 ####[facility] LABCLIA [id number] [place] [address] Monocytes (Bld) [#/Vol] 0.66 10*3/uL Normal <0.87 [facility] Comment on above: Order Comment: Speci men Type: BLOOD SPECIMENOrdering Facility: [facility] Address: [address] [place] [address] Performed By: #### 5 7021-8 ####[facility] LABCLIA [id number] [place] [address] Monocytes/100 WBC (Bld) 5.5 % Normal [facility] Comment on above: Order Comment: Speci men Type: BLOOD SPECIMENOrdering Facility: [facility] Address: [address] [place] [address] Performed By: #### 5 7021-8 ####[facility] LABCLIA [id number] [place] [address] Neutrophils (Bld) [#/Vol] 7.35 10*3/uL Normal 1.45-7.50 [facility] Comment on above: Order Comment: Speci men Type: BLOOD SPECIMENOrdering Facility: [facility] Address: [address] [place] [address] Performed By: #### 5 7021-8 ####[facility] LABCLIA [id number] [place] [address] Neutrophils/100 WBC (Bld) 61.7 % Normal [facility] Comment on above: Order Comment: Speci men Type: BLOOD SPECIMENOrdering Facility: [facility] Address: [address] [place] [address] Performed By: #### 5 7021-8 ####[facility] LABCLIA [id number] [place] [address] Nucleated RBC (Bld) [#/Vol] 10*3/uL Normal <0.01 [facility] Comment on above: Order Comment: Speci men Type: BLOOD SPECIMENOrdering Facility: [facility] Address: [address] [place] [address] Performed By: #### 5 7021-8 ####[facility] LABCLIA [id number] [place] [address] Nucleated RBC/100 WBC (Bld) [Ratio] 0.0 /100 WBC Normal [facility] Comment on above: Order Comment: Speci men Type: BLOOD SPECIMENOrdering Facility: [facility] Address: [address] [place] [address] Performed By: #### 5 7021-8 ####[facility] LABCLIA [id number] [place] [address] Platelet mean volume (Bld) [Entitic vol] 9.7 fL Normal 9.0-12.7 [facility] Comment on above: Order Comment: Speci men Type: BLOOD SPECIMENOrdering Facility: [facility] Address: [address] [address] Performed By: #### 5 7021-8 ####[facility] LABCLIA [id number] [place] [address] Platelets (Bld) [#/Vol] 295 10*3/uL Normal 150-400 [facility] Comment on above: Order Comment: Speci men Type: BLOOD SPECIMENOrdering Facility: [facility] Address: [address] [place] [address] Performed By: #### 5 7021-8 ####[facility] LABCLIA [id number] [place] [address] RBC (Bld) [#/Vol] 4.49 10*6/uL Normal 3.90-5.20 [facility] Comment on above: Order Comment: Speci men Type: BLOOD SPECIMENOrdering Facility: [facility] Address: [address] [place] [address] Performed By: #### 5 7021-8 ####[facility] LABIA [id number] [place] [address] WBC (Bld) [#/Vol] 11.93 10*3/uL High 3.70-11.00 [facility] Comment on above: Order Comment: Speci men Type: BLOOD SPECIMENOrdering Facility: [facility] Address: [address] [place] [address] Performed By: #### 5 7021-8 ####[facility] LABIA [id number] [place] [address] CRP [facility] 10-15-2022 CRP [Mass/Vol] 0.3 mg/dL Normal <0.9 [facility] Comment on above: Order Comment: Speci men Type: BLOOD SPECIMENOrdering Facility: [facility] Address: [address] [place] [address] Performed By: #### 1 988-5, 2885-2, 2132-9 ####[facility] LABCLIA [id number] [facility]ALSa[facility] [id number] [address] [place] Comprehensive metabolic 2000 panelon 10-15-2022 Albumin [Mass/Vol] 4.0 g/dL Normal 3.9-4.9 [facility] Comment on above: Order Comment: Speci men Type: BLOOD SPECIMENOrdering Facility: [facility] Address: [address] [address] Performed By: #### 2 532-0, 12786-3 ####[facility] LABCLIA [id number] [place] [address] ALP [Catalytic activity/Vol] 59 U/L Normal 34-123 [facility] Comment on above: Order Comment: Speci men Type: BLOOD SPECIMENOrdering Facility: [facility] Address: [address] [place] [address] Performed By: #### 2 532-0, ####[facility] LABIA [id number] [place] [address] ALT [Catalytic activity/Vol] 19 U/L Normal 7-38 [facility] Comment on above: Order Comment: Speci men Type: BLOOD SPECIMENOrdering Facility: [facility] Address: [address] [address] Performed By: #### 2 532-0, ####[facility] LABCLIA [id number] [place] [address] Anion gap [Moles/Vol] 12 mmol/L Normal 9-18 [facility] Comment on above: Order Comment: Speci men Type: BLOOD SPECIMENOrdering Facility: [facility] Address: [address] [place] [address] Performed By: #### 2 532-0, 29165-1 ####[facility] LABCLIA [id number] [place] [address] AST [Catalytic activity/Vol] 10 U/L Low 13-35 [facility] Comment on above: Order Comment: Speci men Type: BLOOD SPECIMENOrdering Facility: [facility] Address: [address] Performed By: #### 2 532-0, ####[facility]ENTERDAPHNE [facility] LABCLIA [id number] [place] [address] Bilirubin [Mass/Vol] 0.2 mg/dL Normal 0.2-1.3 [facility] Comment on above: Order Comment: Speci men Type: BLOOD SPECIMENOrdering Facility: [facility] Address: [address] [address] Performed By: #### 2 532-0, ####[facility] LABIA [id number] [place] [address] Calcium [Mass/Vol] 9.6 mg/dL Normal 8.5-10.2 [facility] Comment on above: Order Comment: Speci men Type: BLOOD SPECIMENOrdering Facility: [facility] Address: [address] [address] Performed By: #### 2 532-0, ####[facility]ENTERDAPHNE [facility] LABIA [id number] [place] [address] Chloride [Moles/Vol] 104 mmol/L Normal 97-105 [facility] Comment on above: Order Comment: Speci men Type: BLOOD SPECIMENOrdering Facility: [facility] Address: [address] [address] Performed By: #### 2 532-0, ####[facility] LABIA [id number] [place] [address] CO2 [Moles/Vol] 21 mmol/L Low 22-30 [facility] Comment on above: Order Comment: Speci men Type: BLOOD SPECIMENOrdering Facility: [facility] Address: [address] Performed By: #### 2 532-0, 38426-1 ####[facility] LABCLIA [id number] [place] [address] Creatinine [Mass/Vol] 0.72 mg/dL Normal 0.58-0.96 [facility] Comment on above: Order Comment: Semaj cortés Type: BLOOD SPECIMENOrdering Facility: [facility] Address: [address] [address] Performed By: #### 2 532-0, 71836-3 ####[facility] LABCLIA [id number] [place] [address] ESTIMATED GLOMERULAR FILTRATION RATE 107 mL/min/1.73m??? Normal >=60 [facility] Comment on above: Order Comment: Semaj men Type: BLOOD SPECIMENOrdering Facility: [facility] Address: [address] [place] [address] Result Comment: Erin mated Glomerular Filtration Rate [...] actual GFR. Performed By: #### 2 532-0, 59179-1 ####[facility] LABIA [id number] [place] [address] Glucose [Mass/Vol] 157 mg/dL High 74-99 [facility] Comment on above: Order Comment: Speci moo Type: BLOOD SPECIMENOrdering Facility: [facility] Address: [address] [place] [address] Result Comment: The [place] [employer] (ADA) provides guidance for cutoff [...] Standards of Medical Care in Diabetes 2016, [place] [employer]. Diabetes Care. 2016.39(Suppl 1). Performed By: #### 2 532-0, ####[facility] LABCLIA [id number] [place] [address] Potassium [Moles/Vol] 3.8 mmol/L Normal 3.7-5.1 [facility] Comment on above: Order Comment: Speci men Type: BLOOD SPECIMENOrdering Facility: [facility] Address: [address] [place] [address] Performed By: #### 2 532-0, ####[facility] LABIA [id number] [place] [address] Protein [Mass/Vol] 6.8 g/dL Normal 6.3-8.0 [facility] Comment on above: Order Comment: Speci men Type: BLOOD SPECIMENOrdering Facility: [facility] Address: [address] [place] [address] Performed By: #### 2 532-0, ####[facility] LABIA [id number] [place] [address] Sodium [Moles/Vol] 137 mmol/L Normal 136-144 [facility] Comment on above: Order Comment: Speci men Type: BLOOD SPECIMENOrdering Facility: [facility] Address: [address] [address] Performed By: #### 2 532-0, ####[facility] LABIA [id number] [place] [address] Urea nitrogen [Mass/Vol] 16 mg/dL Normal 7-21 [facility] Comment on above: Order Comment: Speci men Type: BLOOD SPECIMENOrdering Facility: [facility] Address: [address] [address] Performed By: #### 2 532-0, 06148-3 ####[facility] LABCLIA [id number] [place] [address] ESR Westergren method (Bld) [Velocity]on 10-15-2022 ESR (Bld) [Velocity] 27 mm/h High 0-20 [facility] Comment on above: Order Comment: Speci men Type: BLOOD SPECIMENOrdering Facility: [facility] Address: [address] [address] Performed By: #### 4 537-7 ####[facility] LABIA [id number] [address] IMMUNOFIXATION SCREEN, SERUM on 10-15-2022 MPA RESULT No M protein is identified. Normal No M protein is identified. [facility] Comment on above: Order Comment: Speci men Type: BLOOD SPECIMENOrdering Facility: [facility] Address: [address] [address] Performed By: #### I FES ####[facility] LABIA [id number] [address] STAFF REVIEW (MPA) Reviewed by Chapito holt MD, Ph.D ([id number]) Normal [facility] Comment on above: Order Comment: Speci men Type: BLOOD SPECIMENOrdering Facility: [facility] Address: [address] Performed By: #### I FESC ####[facility] LABIA [id number] [address] [place] IMMUNOGLOBULINS GAMon 2022 IgA [Mass/Vol] 184 mg/dL Normal 70-400 [facility] Comment on above: Order Comment: Speci men Type: BLOOD SPECIMENOrdering Facility: [facility] Address: [address] Performed By: #### S ERIMM ####[facility] LABCLIA [id number] [address] [place] IgG [Mass/Vol] 540 mg/dL Low 700-1600 [facility] Comment on above: Order Comment: Speci men Type: BLOOD SPECIMENOrdering Facility: [facility] Address: [address] [place] [address] Performed By: #### S ERIMM ####[facility] LABCLIA [id number] [address] STATES OF [facility] IgM [Mass/Vol] 504 mg/dL High 40-230 [facility] Comment on above: Order Comment: Speci men Type: BLOOD SPECIMENOrdering Facility: [facility] Address: [address] [place] [address] Performed By: #### S ERIMM ####[facility] LABIA [id number] [address] OF [facility] KAPPA/FARMER,FREE,SERon 2022 Immunoglobulin light chains.kappa.free (S) [Mass/Vol] 14.2 mg/L Normal 3.3-19.4 [facility] Comment on above: Order Comment: Speci men Type: BLOOD SPECIMENOrdering Facility: [facility] Address: [address] [place] [address] Result Comment: Rare ly, increased serum free light chains levels may not be detected or accurately quantified due to prozone phenomenon or in high viscosity samples using this immunoturbidimetric assay. Correlation with other laboratory results and clinical findings is recommended.The Carney Free Light Chain was performed using the Binding Site Optilite immunoturbidimetric method. Result obtained with different assay methods or kits cannot be used interchangeably. Performed By: #### K LFRS ####[facility] LABCLIA [id number] [address] [place] Immunoglobulin light chains.kappa/Immunog lobulin light chains.lambda (S) [Mass ratio] 1.34 Normal 0.26-1.65 [facility] Comment on above: Order Comment: Speci men Type: BLOOD SPECIMENOrdering Facility: [facility] Address: [address] [place] [address] Performed By: #### K LFRS ####[facility] LABCLIA [id number] [place] [address] [place] Immunoglobulin light chains.lambda.free [Mass/Vol] 10.6 mg/L Normal 5.7-26.3 [facility] Comment on above: Order Comment: Speci men Type: BLOOD SPECIMENOrdering Facility: [facility] Address: [address] [place] [address] Result Comment: Rare ly, increased serum free [...] used interchangeably. Performed By: #### K LFRS ####[facility] LABCLIA [id number] [place] [address] [place] LDH SerPl-cCncon 10-15-2022 LDH [Catalytic activity/Vol] 155 U/L Normal 135-214 [facility] Comment on above: Order Comment: Speci men Type: BLOOD SPECIMENOrdering Facility: [facility] Address: [address] [place] [address] Performed By: #### 2 532-0, 25727-7 ####[facility] LABCLIA [id number] [place] [address] PROTEIN ELECTROPHORESIS SERU M WITH DANA (P)on 10-15-2022 Albumin [Mass/Vol] 3.92 g/dL Normal 3.43-5.41 [facility] Comment on above: Order Comment: Speci men Type: BLOOD SPECIMENOrdering Facility: [facility] Address: [address] [place] [address] Performed By: #### L [id number] ####[facility] LABIA [id number] [address] OF [facility] Alpha 1 globulin Elph [Mass/Vol] 0.34 g/dL Normal 0.18-0.43 [facility] Comment on above: Order Comment: Speci men Type: BLOOD SPECIMENOrdering Facility: [facility] Address: [address] [place], [place] [address] Performed By: #### L [id number] ####[facility] LABIA [id number] [address] [place] Alpha 2 globulin Elph [Mass/Vol] 0.84 g/dL Normal 0.42-0.98 [facility] Comment on above: Order Comment: Speci men Type: BLOOD SPECIMENOrdering Facility: [facility] Address: [address] [place], [place] [address] Performed By: #### L [id number] ####[facility] [id number] [address] [place] Beta globulin Elph [Mass/Vol] 0.92 g/dL Normal 0.61-1.17 [facility] Comment on above: Order Comment: Speci men Type: BLOOD SPECIMENOrdering Facility: [facility] Address: [address] [place], [place] [address] Performed By: #### L [id number] ####[facility] LABIA [id number] [place] [address] [place] COMMENT (SERUM PROT ELECTRO) Monoclonal Protein analysis (immunofixation) is not indicated. Normal [facility] Comment on above: Order Comment: Speci men Type: BLOOD SPECIMENOrdering Facility: [facility] Address: [address] [place], [place] [address] Performed By: #### L [id number] ####[facility] LABIA [id number] [address] [place] Gamma globulin Elph [Mass/Vol] 0.68 g/dL Normal 0.53-1.51 [facility] Comment on above: Order Comment: Speci men Type: BLOOD SPECIMENOrdering Facility: [facility] Address: [address] [address] Performed By: #### L [id number] ####[facility] LABCLIA [id number] [address] [place] M-PROTEIN LOCATION Normal [facility] Comment on above: Order Comment: Speci men Type: BLOOD SPECIMENOrdering Facility: [facility] Address: [address] [place] [address] Result Comment: Not Applicable. Performed By: #### L [id number] ####[facility] LABCLIA [id number] [address] [place] Protein Fractions [Interp] No definitive M protein is identified on protein electrophoresis. Normal No definitive M protein is identified on protein electrophor esis. [facility] Comment on above: Order Comment: Speci men Type: BLOOD SPECIMENOrdering Facility: [facility] Address: [address] [place] [address] Performed By: #### L [id number] ####[facility] LABCLIA [id number] [address] [place] Protein.monoclonal Elph [Mass/Vol] 0.00 g/dL Normal <=0.00 [facility] Comment on above: Order Comment: Speci men Type: BLOOD SPECIMENOrdering Facility: [facility] Address: [address] [place], [place] [address] Performed By: #### L [id number] ####[facility] LABCLIA [id number] [address] [place] SPE STAFF REVIEW Reviewed by Chapito holt MD, Ph.D ([id number]) Normal [facility] Comment on above: Order Comment: Speci men Type: BLOOD SPECIMENOrdering Facility: [facility] Address: [address] [address] Performed By: #### L [id number] ####[facility] LABIA [id number] [place] [address] [place] Prot [facility]Pl[facility]2022 Protein [Mass/Vol] 6.7 g/dL Normal 6.3-8.0 [facility] Comment on above: Order Comment: Speci men Type: BLOOD SPECIMENOrdering Facility: [facility] Address: [address] [place] [address] Performed By: #### 1 988-5, 28809-22, 2132-01 ####[facility] [id number] [address] Vit B12 [facility] 023 Cobalamin (Vitamin B12) [Mass/Vol] 368 pg/mL Normal 232-1245 [facility] Comment on above: Order Comment: Speci men Type: BLOOD SPECIMENOrdering Facility: [facility] Address: [address] [address] Performed By: #### 1 988-5, 28809-22, 2132-01 ####[facility] [id number] [address] [place] CBC AUTO DIFFon 09-24-2022 BASO # 0.1 103/ul Normal 0.0-0.1 [facility] Comment on above: Performed By: #### U AMIC #### [facility] [address] [address] [address] Manda York Basophils/100 WBC (Bld) 0.6 % Normal 0.2-2.0 [facility] Comment on above: Performed By: #### U AMIC #### [facility] [address] [address] [address] Manda York EO # 0.1 103/ul Normal 0.0-0.7 [facility] Comment on above: Performed By: #### U AMIC #### [facility] [address] [place] [address] Dr. Manda York Eosinophils/100 WBC (Bld) 0.6 % Critically low 0.9-7.0 [facility] Comment on above: Performed By: #### U AMIC #### [facility] [address] [place] [address] Dr. Manda York Erythrocyte distribution width (RBC) [Ratio] 14.6 % Normal 11.0-15.0 [facility] Comment on above: Performed By: #### U AMIC #### [facility] [address] [place] [address] Dr. Manda York Hematocrit (Bld) [Volume fraction] 43.4 % Normal 36.0-48.0 [facility] Comment on above: Performed By: #### U AMIC #### [facility] [address] [place] [address] Dr. Manda York Hemoglobin (Bld) [Mass/Vol] 13.7 g/dL Normal 12.0-16.0 [facility] Comment on above: Performed By: #### U AMIC #### [facility] [address] [place] [address] Dr. Manda York IG # 0.12 10e3/ul Critically high 0.00-0.03 [facility] Comment on above: Performed By: #### U AMIC #### [facility] [address] [place] [address] Dr. Manda York IG % 0.8 % Critically high 0.0-0.5 [facility] Comment on above: Performed By: #### U AMIC #### [facility] [address] [place] [address] Dr. Manda York LYMPH # 2.6 103/ul Normal 1.2-3.8 [facility] Comment on above: Performed By: #### U AMIC #### [facility] [address] [place] [address] Dr. Manda York Lymphocytes/100 WBC (Bld) 18.3 % Critically low 20.5-60.0 [facility] Comment on above: Performed By: #### U AMIC #### [facility] [address] [place] [address] Dr. Manda York MANUAL DIFF REQ NO Normal [facility] Comment on above: Performed By: #### U AMIC #### [facility] [address] [place] [address] Dr. Manda York MCH (RBC) [Entitic mass] 29.0 pg Normal 26.7-34.0 [facility] Comment on above: Performed By: #### U AMIC #### [facility] [address] [place] [address] Dr. Manda York MCHC (RBC) [Mass/Vol] 31.6 g/dL Normal 29.9-35.2 [facility] Comment on above: Performed By: #### U AMIC #### [facility] [address] [place] [address] Dr. Manda York MCV (RBC) [Entitic vol] 91.8 fL Normal 81.0-99.0 [facility] Comment on above: Performed By: #### U AMIC #### [facility] [address] [place] [address] Dr. Manda York MONO # 0.7 103/ul Normal 0.3-0.8 [facility] Comment on above: Performed By: #### U AMIC #### [facility] [address] [place] [address] Dr. Manda York Monocytes/100 WBC (Bld) 5.1 % Normal 1.7-12.0 [facility] Comment on above: Performed By: #### U AMIC #### [facility] [address] [place] [address] Dr. Manda York NEUT # 10.6 103/ul Critically high 1.4-6.5 [facility] Comment on above: Performed By: #### U AMIC #### [facility] [address] [place] [address] Dr. Manda York Neutrophils/100 WBC (Bld) 74.6 % Normal 43.0-75.0 [facility] Comment on above: Performed By: #### U AMIC #### [facility] [address] [address] [address] Manda York Platelet mean volume (Bld) [Entitic vol] 9.4 fL Critically low 9.5-13.5 [facility] Comment on above: Performed By: #### U AMIC #### [facility] [address] [address] [address] Manda York PLT 307 103/ul Normal 150-450 [facility] Comment on above: Performed By: #### U AMIC #### [facility] [address] [address] [address] Manda York RBC 4.73 106/ul Normal 4.20-5.40 [facility] Comment on above: Performed By: #### U AMIC #### [facility] [address] [place] [address] Dr. Manda York WBC 14.2 103/ul Critically high 4.0-11.0 [facility] Comment on above: Performed By: #### U AMIC #### [facility] [address] [place] [address] Dr. Manda York CNNURSEon 09-24-2022 CNNURSE Normal [facility] FREE T4on 09-24-2022 Free T4 [Mass/Vol] 1.31 ng/dL Normal 0.76-1.46 [facility] Comment on above: Performed By: #### F T4 #### [facility] [address] [place] [address] Dr. Manda York GLYCOHEMOGLOBIN A1Con 2022 ADA RECOMMENDATION SEE BELOW Normal [facility] Comment on above: Result Comment: ADA RECOMMENDED LIMIT 4.0 - 6.0 ADA THERAPEUTIC TARGET < 7.0 ACTION SUGGESTED > 7.0 Performed By: #### A 1C #### [facility] [address] [place] [address] Dr. Manda York Glucose [Mass/Vol] 120 mg/dL Normal [facility] Comment on above: Performed By: #### A 1C #### [facility] [address] [place] [address] Dr. Manda York HbA1c (Bld) [Mass fraction] 5.8 % Normal 4.5-6.2 [facility] Comment on above: Performed By: #### A 1C #### [facility] [address] [place] [address] Dr. Manda Yrok PREG QUANT HCGon 09-24-2022 HCG QUANT <1 Normal [facility] Comment on above: Performed By: #### F T4 #### [facility] [address] [place] [address] Dr. Manda York HCG RANGE SEE BELOW Normal [facility] Comment on above: Result Comment: 5-50 0.2-1 WEEK 50-500 1-2 WEEKS 100-5,000 2-3 WEEKS 500-10,000 3-4 WEEKS 1,000-50,000 4-5 WEEKS 10,000-100,000 5-6 WEEKS 15,000-200,000 6-8 WEEKS 10,000-100,000 2-3 MONTHS Performed By: #### F T4 #### [facility] [facility] [address] [place] [address] Dr. Manda York PROTIMEon 09-24-2022 INR Coag (PPP) [Relative time] {INR} Normal [facility] Comment on above: Performed By: #### F T4 #### [facility] [address] [place] [address] Dr. Manda York INR GUIDELINES SEE BELOW Normal [facility] Comment on above: Result Comment: SHERRY RED INR: 2.0 - 3.0 CONDITIONS NOT LISTED BELOW 2.5 - 3.5 FOR PROSTHETIC HEART VALVE REPLACEMENT 2.5 - 3.5 RECURRENT THROMBOSIS Performed By: #### F T4 #### [facility] [address] [place] [address] Dr. Manda York PT Coag (PPP) [Time] 9.6 s Normal 9.0-11.6 [facility] Comment on above: Performed By: #### F T4 #### [facility] [address] [place] [address] Dr. Manda York PTTon 09-24-2022 aPTT Coag (Bld) [Time] 28.2 s Normal 22.3-36.2 [facility] Comment on above: Performed By: #### F T4 #### [facility] [address] [address] [address] Manda York TSHon 09-24-2022 TSH 0.300 uIU/mL Critically low 0.358-3.740 [facility] Comment on above: Performed By: #### F T4 #### [facility] [address] [address] [address] Manda York US PELVIS TRANSVAGon 023 [...] by: AURORA SHAIKH Date: 2022-09-24 17:50 Normal [facility] PAP ACOG PANEL 2: 30 to 65on 09-18-2022 . . Normal [facility] Comment on above: Result Comment: Perf ormed at: WB Performed By: #### F T4 #### [facility] [address] [address] [address] Manda York Age Gdln ACOG Testing 30-65 Normal [facility] Comment on above: Performed By: #### F T4 #### [facility] [address] [address] [address] Manda York DIAGNOSIS: Comment Normal [facility] Comment on above: Result Comment: NEGA TIVE FOR INTRAEPITHELIAL LESION OR MALIGNANCY. Performed at: WB Performed By: #### F T4 #### [facility] [address] [place] [address] Dr. Manda York HPV Aptima Negative Normal Negative [facility] Comment on above: Result Comment: This nucleic acid amplification test detects fourteen high-risk HPV types (16,18,31,33,35,39,45,51,52,56,58,59,66,68) without differentiation. Performed at: =G Performed By: #### F T4 #### [facility] [address] [place] [address] Dr. Manda York HPV Genotype Reflex Comment Normal [facility] Comment on above: Result Comment: Crit eria not met, HPV Genotype not performed. Performed at: WB Performed By: #### F T4 #### [facility] [address] [place] [address] Dr. Manda York Methodology: Comment Normal [facility] Comment on above: Result Comment: This liquid based ThinPrep(R) pap test was screened with the use of an image guided system. Performed at: WB Performed By: #### F T4 #### [facility] [address] [place] [address] Dr. Manda York Note: Comment Normal [facility] Comment on above: Result Comment: [...] By: #### F T4 #### [facility] [address] [place] [address] Dr. Manda York Performed by: Comment Normal [facility] Comment on above: Result Comment: Lorena Peters, Wafer Fabricator (ASCP) Performed at: WB Performed By: #### F T4 #### [facility] [address] [place] [address] Dr. Manda York Specimen adequacy: Comment Normal [facility] Comment on above: Result Comment: Sati sfactory for evaluation. Endocervical and/or squamous metaplastic cells (endocervical component) are present. Performed at: WB Performed By: #### F T4 #### [facility] [address] [address] [address] Manda York CNPNon 09-08-2022 CNPN Normal [facility] MG MAMM SCREEN 3D MARK CADon 09-01-2022 MG MAMM SCREEN 3D MARK CAD Patient: JONES HALEY Exam Date: 09/01/2022 : 1980 Gender:F Ordering : DR MADELAINE FERRIS . Admission #: [id number] Family : Order #: [id number] CLICK HERE TO VIEW EXAM RADIOLOGY REPORT [...] at age 56. LOCATION: [facility] BREAST COMPOSITION: Scattered areas fibroglandular density. [...] Yusuf M.D. on 09/02/2022 at 12:32 Normal [facility] CNNURSEon 08-27-2022 CNNURSE Normal [facility] CNOVSPon 08-27-2022 CNOVSP Normal [facility] CNPNon 08-19-2022 CNPN Normal [facility] 25(OH)D3 SerPl-mCncon 2022 25-hydroxyvitamin D3 [Mass/Vol] 33.1 ng/mL Normal 31.0-80.0 [facility] Comment on above: Order Comment: Speci men Type: BLOOD SPECIMENOrdering Facility: [facility] Address: [address] [address] Result Comment: Clas sification of 25 [place] Vitamin D status:Deficiency/Insufficiency: < or = 30 ng/ml.Sufficiency/Optimal Levels: 31-80 ng/mLToxicity: > 100 ng/mL.Test performed by chemiluminescent immunoassay. Performed By: #### 1 989-3 ####[facility] LABCLIA [id number] [place] [address] [place] B2 Microglob SerPl-mCncon Upvv-6-Qvoibazosecly [Mass/Vol] 1.6 ug/mL Normal 0.8-2.4 [facility] Comment on above: Order Comment: Speci men Type: BLOOD SPECIMENOrdering Facility: [facility] Address: [address] [place], [place] [address] Result Comment: Beta -2 Microglobulin test is performed using the [employer] immunoturbidimetric method. Results obtained with different methods or kits cannot be used interchangeably. Performed By: #### 1 952-1, 1987-5, 2885-2, 2132-9 ####[facility] LABCLIA [id number] [address] [place] CBC W Auto Differential pane l (Bld)on 08-18-2022 Basophils (Bld) [#/Vol] 0.03 10*3/uL Normal <0.11 [facility] Comment on above: Order Comment: Speci men Type: BLOOD SPECIMENOrdering Facility: [facility] Address: [address] [place] [address] Performed By: #### 5 7021-8 ####[facility] LABCLIA [id number] [place] [address] Basophils/100 WBC (Bld) 0.2 % Normal [facility] Comment on above: Order Comment: Speci men Type: BLOOD SPECIMENOrdering Facility: [facility] Address: [address] [place] [address] Performed By: #### 5 7021-8 ####[facility] LABCLIA [id number] [place] [address] Differential cell count method Nom (Bld) Auto Normal [facility] Comment on above: Order Comment: Speci men Type: BLOOD SPECIMENOrdering Facility: [facility] Address: [address] [address] Performed By: #### 5 7021-8 ####[facility] LABCLIA [id number] [place] [address] Eosinophils (Bld) [#/Vol] 0.08 10*3/uL Normal <0.46 [facility] Comment on above: Order Comment: Speci men Type: BLOOD SPECIMENOrdering Facility: [facility] Address: [address] [place] [address] Performed By: #### 5 7021-8 ####[facility] LABIA [id number] [place] [address] Eosinophils/100 WBC (Bld) 0.5 % Normal [facility] Comment on above: Order Comment: Speci men Type: BLOOD SPECIMENOrdering Facility: [facility] Address: [address] [place] [address] Performed By: #### 5 7021-8 ####[facility] LABCLIA [id number] [place] [address] Erythrocyte distribution width (RBC) [Ratio] 14.6 % Normal 11.5-15.0 [facility] Comment on above: Order Comment: Speci men Type: BLOOD SPECIMENOrdering Facility: [facility] Address: [address] [place] [address] Performed By: #### 5 7021-8 ####[facility] LABCLIA [id number] [place] [address] Hematocrit (Bld) [Volume fraction] 41.1 % Normal 36.0-46.0 [facility] Comment on above: Order Comment: Speci men Type: BLOOD SPECIMENOrdering Facility: [facility] Address: [address] [place] [address] Performed By: #### 5 7021-8 ####[facility] LABCLIA [id number] [place] [address] Hemoglobin (Bld) [Mass/Vol] 13.1 g/dL Normal 11.5-15.5 [facility] Comment on above: Order Comment: Speci men Type: BLOOD SPECIMENOrdering Facility: [facility] Address: [address] [place] [address] Performed By: #### 5 7021-8 ####[facility] LABIA [id number] [place] [address] Immature granulocytes (Bld) [#/Vol] 0.11 10*3/uL High <0.10 [facility] Comment on above: Order Comment: Speci men Type: BLOOD SPECIMENOrdering Facility: [facility] Address: [address] [place] [address] Performed By: #### 5 7021-8 ####[facility] LABCLIA [id number] [place] [address] Immature granulocytes/100 WBC (Bld) 0.7 % Normal [facility] Comment on above: Order Comment: Speci men Type: BLOOD SPECIMENOrdering Facility: [facility] Address: [address] [place] [address] Performed By: #### 5 7021-8 ####[facility] LABIA [id number] [place] [address] Lymphocytes (Bld) [#/Vol] 3.19 10*3/uL Normal 1.00-4.00 [facility] Comment on above: Order Comment: Speci men Type: BLOOD SPECIMENOrdering Facility: [facility] Address: [address] [address] Performed By: #### 5 7021-8 ####[facility] LABCLIA [id number] [place] [address] Lymphocytes/100 WBC (Bld) 21.7 % Normal [facility] Comment on above: Order Comment: Speci men Type: BLOOD SPECIMENOrdering Facility: [facility] Address: [address] [place] [address] Performed By: #### 5 7021-8 ####[facility] LABCLIA [id number] [place] [address] MCH (RBC) [Entitic mass] 28.9 pg Normal 26.0-34.0 [facility] Comment on above: Order Comment: Speci men Type: BLOOD SPECIMENOrdering Facility: [facility] Address: [address] [place] [address] Performed By: #### 5 7021-8 ####[facility] LABCLIA [id number] [place] [address] MCHC (RBC) [Mass/Vol] 31.9 g/dL Normal 30.5-36.0 [facility] Comment on above: Order Comment: Speci men Type: BLOOD SPECIMENOrdering Facility: [facility] Address: [address] [place] [address] Performed By: #### 5 7021-8 ####[facility] LABIA [id number] [place] [address] MCV (RBC) [Entitic vol] 90.7 fL Normal 80.0-100.0 [facility] Comment on above: Order Comment: Speci men Type: BLOOD SPECIMENOrdering Facility: [facility] Address: [address] [place] [address] Performed By: #### 5 7021-8 ####[facility] LABCLIA [id number] [place] [address] Monocytes (Bld) [#/Vol] 0.87 10*3/uL High <0.87 [facility] Comment on above: Order Comment: Speci men Type: BLOOD SPECIMENOrdering Facility: [facility] Address: [address] [address] Performed By: #### 5 7021-8 ####[facility] LABCLIA [id number] [place] [address] Monocytes/100 WBC (Bld) 5.9 % Normal [facility] Comment on above: Order Comment: Speci men Type: BLOOD SPECIMENOrdering Facility: [facility] Address: [address] [address] Performed By: #### 5 7021-8 ####[facility] LABCLIA [id number] [place] [address] Neutrophils (Bld) [#/Vol] 10.44 10*3/uL High 1.45-7.50 [facility] Comment on above: Order Comment: Speci men Type: BLOOD SPECIMENOrdering Facility: [facility] Address: [address] [address] Performed By: #### 5 7021-8 ####[facility] LABCLIA [id number] [place] [address] Neutrophils/100 WBC (Bld) 71.0 % Normal [facility] Comment on above: Order Comment: Speci men Type: BLOOD SPECIMENOrdering Facility: [facility] Address: [address] [address] Performed By: #### 5 7021-8 ####[facility] LABCLIA [id number] [place] [address] Nucleated RBC (Bld) [#/Vol] 10*3/uL Normal <0.01 [facility] Comment on above: Order Comment: Speci men Type: BLOOD SPECIMENOrdering Facility: [facility] Address: [address] [place] [address] Performed By: #### 5 7021-8 ####[facility] LABCLIA [id number] [place] [address] Nucleated RBC/100 WBC (Bld) [Ratio] 0.0 /100 WBC Normal [facility] Comment on above: Order Comment: Speci men Type: BLOOD SPECIMENOrdering Facility: [facility] Address: [address] [place] [address] Performed By: #### 5 7021-8 ####[facility] LABCLIA [id number] [place] [address] Platelet mean volume (Bld) [Entitic vol] 9.8 fL Normal 9.0-12.7 [facility] Comment on above: Order Comment: Speci men Type: BLOOD SPECIMENOrdering Facility: [facility] Address: [address] [place] [address] Performed By: #### 5 7021-8 ####[facility] LABIA [id number] [place] [address] Platelets (Bld) [#/Vol] 309 10*3/uL Normal 150-400 [facility] Comment on above: Order Comment: Speci men Type: BLOOD SPECIMENOrdering Facility: [facility] Address: [address] [place] [address] Performed By: #### 5 7021-8 ####[facility] LABCLIA [id number] [place] [address] RBC (Bld) [#/Vol] 4.53 10*6/uL Normal 3.90-5.20 [facility] Comment on above: Order Comment: Speci men Type: BLOOD SPECIMENOrdering Facility: [facility] Address: [address] [place] [address] Performed By: #### 5 7021-8 ####[facility] LABCLIA [id number] [place] [address] WBC (Bld) [#/Vol] 14.72 10*3/uL High 3.70-11.00 [facility] Comment on above: Order Comment: Speci men Type: BLOOD SPECIMENOrdering Facility: [facility] Address: [address] [place] [address] Performed By: #### 5 7021-8 ####[facility] LABCLIA [id number] [place] [address] CRP SerPl-mCncon 08-18-2022 CRP [Mass/Vol] 0.3 mg/dL Normal <0.9 [facility] Comment on above: Order Comment: Speci men Type: BLOOD SPECIMENOrdering Facility: [facility] Address: [address] [place] [address] Performed By: #### 1 952-1, 1987-09, 2885-2, 2132-9 ####[facility] LABCLIA [id number] [place] [address] [place] Calcium.ionized [Moles/Vol]o n 08-18-2022 Calcium.ionized (Bld) [Mass/Vol] 1.29 mmol/L Normal 1.08-1.30 [facility] Comment on above: Order Comment: Speci men Type: BLOOD SPECIMENOrdering Facility: [facility] Address: [address] [place] [address] Performed By: #### 1 995-0 ####[facility] LABCLIA [id number] [address] [place] Calcium.ionized adjusted to pH 7.4 (Bld) [Moles/Vol] 1.27 mmol/L Normal 1.08-1.30 [facility] Comment on above: Order Comment: Speci men Type: BLOOD SPECIMENOrdering Facility: [facility] Address: [address] [place] [address] Performed By: #### 1 995-0 ####[facility] LABCLIA [id number] [address] [place] Comprehensive metabolic 2000 panelon 08-18-2022 Albumin [Mass/Vol] 4.2 g/dL Normal 3.9-4.9 [facility] Comment on above: Order Comment: Speci men Type: BLOOD SPECIMENOrdering Facility: [facility] Address: [address] [place] [address] Performed By: #### 2 532-0, 2777-1, 3084-1, 55761-1 ####[facility] LABCLIA [id number] [place] [address] ALP [Catalytic activity/Vol] 66 U/L Normal 34-123 [facility] Comment on above: Order Comment: Speci men Type: BLOOD SPECIMENOrdering Facility: [facility] Address: [address] [place] [address] Performed By: #### 2 532-0, 2777-1, 3084-1, 39322-5 ####[facility] LABIA [id number] [place] [address] ALT [Catalytic activity/Vol] 22 U/L Normal 7-38 [facility] Comment on above: Order Comment: Speci men Type: BLOOD SPECIMENOrdering Facility: [facility] Address: [address] [place] [address] Performed By: #### 2 532-0, 2777-1, 3084-1, 91453-6 ####[facility] LABIA [id number] [place] [address] Anion gap [Moles/Vol] 11 mmol/L Normal 9-18 [facility] Comment on above: Order Comment: Speci men Type: BLOOD SPECIMENOrdering Facility: [facility] Address: [address] [place] [address] Performed By: #### 2 532-0, 2777-1, 3084-1, 87492-4 ####[facility] LABCLIA [id number] [place] [address] AST [Catalytic activity/Vol] 9 U/L Low 13-35 [facility] Comment on above: Order Comment: Speci men Type: BLOOD SPECIMENOrdering Facility: [facility] Address: [address] [place] [address] Performed By: #### 2 532-0, 2777-1, 308-, 73296-9 ####[facility] LABCLIA [id number] [place] [address] Bilirubin [Mass/Vol] 0.2 mg/dL Normal 0.2-1.3 [facility] Comment on above: Order Comment: Speci men Type: BLOOD SPECIMENOrdering Facility: [facility] Address: [address] [place] [address] Performed By: #### 2 532-0, 2777-1, 3083-05, ####[facility] LABCLIA [id number] [place] [address] Calcium [Mass/Vol] 9.3 mg/dL Normal 8.5-10.2 [facility] Comment on above: Order Comment: Speci men Type: BLOOD SPECIMENOrdering Facility: [facility] Address: [address] [place] [address] Performed By: #### 2 532-0, 2777-1, 3083-05, ####[facility] LABCLIA [id number] [place] [address] Chloride [Moles/Vol] 106 mmol/L High 97-105 [facility] Comment on above: Order Comment: Speci men Type: BLOOD SPECIMENOrdering Facility: [facility] Address: [address] [place] [address] Performed By: #### 2 532-0, 2777-1, 3083-05, 65656-7 ####[facility] LABCLIA [id number] [place] [address] CO2 [Moles/Vol] 23 mmol/L Normal 22-30 [facility] Comment on above: Order Comment: Speci men Type: BLOOD SPECIMENOrdering Facility: [facility] Address: [address] [address] Performed By: #### 2 532-0, 2777-1, 3083-, ####[facility] LABCLIA [id number] [place] [address] Creatinine [Mass/Vol] 0.68 mg/dL Normal 0.58-0.96 [facility] Comment on above: Order Comment: Speci men Type: BLOOD SPECIMENOrdering Facility: [facility] Address: [address] [address] Performed By: #### 2 532-0, 2776-1, 3083-05, ####[facility] LABCLIA [id number] [place] [address] ESTIMATED GLOMERULAR FILTRATION RATE 112 mL/min/1.73m??? Normal >=60 [facility] Comment on above: Order Comment: Speci men Type: BLOOD SPECIMENOrdering Facility: [facility] Address: [address] [address] Result Comment: Erin mated Glomerular Filtration Rate [...] Performed By: #### 2 532-0, 2777-1, 3083-05, ####[facility] LABIA [id number] [place] [address] Glucose [Mass/Vol] 119 mg/dL High 74-99 [facility] Comment on above: Order Comment: Speci men Type: BLOOD SPECIMENOrdering Facility: [facility] Address: [address] [address] Result Comment: The [place] [employer] (ADA) provides guidance for cutoff [...] Standards of Medical Care in Diabetes 2016, [place] [employer]. Diabetes Care. 2016.39(Suppl 1). Performed By: #### 2 532-0, 2777-1, 3084-, 78553-6 ####[facility] LABCLIA [id number] [place] [address] Potassium [Moles/Vol] 3.7 mmol/L Normal 3.7-5.1 [facility] Comment on above: Order Comment: Speci men Type: BLOOD SPECIMENOrdering Facility: [facility] Address: [address] [place], [place] [address] Performed By: #### 2 532-0, 2777-1, 3083-05, 34183-2 ####[facility] LABIA [id number] [place] [address] Protein [Mass/Vol] 7.1 g/dL Normal 6.3-8.0 [facility] Comment on above: Order Comment: Speci men Type: BLOOD SPECIMENOrdering Facility: [facility] Address: [address] [id number] Performed By: #### 2 532-0, 2777-1, 30808-22, 94530-7 ####[facility] LABIA [id number] [place] [address] Sodium [Moles/Vol] 140 mmol/L Normal 136-144 [facility] Comment on above: Order Comment: Speci men Type: BLOOD SPECIMENOrdering Facility: [facility] Address: [address] [address] Performed By: #### 2 532-0, 2777-1, 3084-1, 43152-1 ####[facility] LABCLIA [id number] [place] [address] Urea nitrogen [Mass/Vol] 11 mg/dL Normal 7-21 [facility] Comment on above: Order Comment: Speci men Type: BLOOD SPECIMENOrdering Facility: [facility] Address: [address] [address] Performed By: #### 2 532-0, 2777-1, 3084-1, 15280-2 ####[facility] LABCLIA [id number] [place] [address] ESR Westergren method (Bld) [Velocity]on 08-18-2022 ESR (Bld) [Velocity] 25 mm/h High 0-20 [facility] Comment on above: Order Comment: Speci men Type: BLOOD SPECIMENOrdering Facility: [facility] Address: [address] [address] Performed By: #### 4 537-7 ####[facility] LABIA [id number] [address] [place] IMMUNOFIXATION SCREEN, SERUM on 08-18-2022 MPA RESULT No M protein is identified. Normal No M protein is identified. [facility] Comment on above: Order Comment: Speci men Type: BLOOD SPECIMENOrdering Facility: [facility] Address: [address] [address] Performed By: #### I [facility] ####[facility] LABIA [id number] [address] [place] STAFF REVIEW (MPA) Reviewed by Dr. Gregg Ortez MD [facility] Comment on above: Order Comment: Speci men Type: BLOOD SPECIMENOrdering Facility: [facility] Address: [address] [address] Performed By: #### I FES ####[facility] LABCLIA [id number] [place] [address] [place] IMMUNOGLOBULINS GAMon 2022 IgA [Mass/Vol] 188 mg/dL Normal 70-400 [facility] Comment on above: Order Comment: Speci men Type: BLOOD SPECIMENOrdering Facility: [facility] Address: [address] [place] [address] Performed By: #### S ERIMM ####[facility] LABCLIA [id number] [place] [address] [place] IgG [Mass/Vol] 591 mg/dL Low 700-1600 [facility] Comment on above: Order Comment: Speci men Type: BLOOD SPECIMENOrdering Facility: [facility] Address: [address] [place] [address] Performed By: #### S ERIMM ####[facility] LABCLIA [id number] [place] [address] [place] IgM [Mass/Vol] 513 mg/dL High 40-230 [facility] Comment on above: Order Comment: Speci men Type: BLOOD SPECIMENOrdering Facility: [facility] Address: [address] [place] [address] Performed By: #### S ERIMM ####[facility] LABIA [id number] [place] [address] [place] KAPPA/FARMER,FREE,SERon 2022 Immunoglobulin light chains.kappa.free (S) [Mass/Vol] 13.9 mg/L Normal 3.3-19.4 [facility] Comment on above: Order Comment: Speci men Type: BLOOD SPECIMENOrdering Facility: [facility] Address: [address] [place] [address] Result Comment: Rare ly, increased serum free light chains levels may not be detected or accurately quantified due to prozone phenomenon or in high viscosity samples using this immunoturbidimetric assay. Correlation with other laboratory results and clinical findings is recommended.The Carney Free Light Chain was performed using the Binding Site Optilite immunoturbidimetric method. Result obtained with different assay methods or kits cannot be used interchangeably. Performed By: #### K LFRS ####[facility] LABCLIA [id number] [place] [address] [place] Immunoglobulin light chains.kappa/Immunog lobulin light chains.lambda (S) [Mass ratio] 1.51 Normal 0.26-1.65 [facility] Comment on above: Order Comment: Speci men Type: BLOOD SPECIMENOrdering Facility: [facility] Address: [address] [place] [address] Performed By: #### K LFRS ####[facility] [id number] [place] [address] [place] Immunoglobulin light chains.lambda.free [Mass/Vol] 9.2 mg/L Normal 5.7-26.3 [facility] Comment on above: Order Comment: Speci men Type: BLOOD SPECIMENOrdering Facility: [facility] Address: [address] [place] [address] Result Comment: Rare ly, increased serum free [...] used interchangeably. Performed By: #### K LFRS ####[facility] LABIA [id number] [place] [address] [place] LDH SerPl-cCncon 08-18-2022 LDH [Catalytic activity/Vol] 164 U/L Normal 135-214 [facility] Comment on above: Order Comment: Speci men Type: BLOOD SPECIMENOrdering Facility: [facility] Address: [address] [place] [address] Performed By: #### 2 532-0, 2777-1, 3084-1, 31839-5 ####[facility] LABCLIA [id number] [place] [id number] PROTEIN ELECTROPHORESIS SERU M (P)on 08-18-2022 Albumin [Mass/Vol] 3.95 g/dL Normal 3.43-5.41 [facility] Comment on above: Order Comment: Speci men Type: BLOOD SPECIMENOrdering Facility: [facility] Address: [address] [place] [address] Performed By: #### L [id number] ####[facility] LABCLIA [id number] [place] [address] [place] Alpha 1 globulin Elph [Mass/Vol] 0.35 g/dL Normal 0.18-0.43 [facility] Comment on above: Order Comment: Speci men Type: BLOOD SPECIMENOrdering Facility: [facility] Address: [address] [place] [address] Performed By: #### L [id number] ####[facility] LABCLIA [id number] [place] [address] [place] Alpha 2 globulin Elph [Mass/Vol] 0.80 g/dL Normal 0.42-0.98 [facility] Comment on above: Order Comment: Speci men Type: BLOOD SPECIMENOrdering Facility: [facility] Address: [address] [place] [address] Performed By: #### L [id number] ####[facility] LABCLIA [id number] [place] [address] [place] Beta globulin Elph [Mass/Vol] 1.06 g/dL Normal 0.61-1.17 [facility] Comment on above: Order Comment: Speci men Type: BLOOD SPECIMENOrdering Facility: [facility] Address: [address] [place] [address] Performed By: #### L [id number] ####[facility] LABCLIA [id number] [address] [place] Gamma globulin Elph [Mass/Vol] 0.74 g/dL Normal 0.53-1.51 [facility] Comment on above: Order Comment: Speci men Type: BLOOD SPECIMENOrdering Facility: [facility] Address: [address] [place] [address] Performed By: #### L [id number] ####[facility] LABIA [id number] [address] [place] M-PROTEIN LOCATION Normal [facility] Comment on above: Order Comment: Speci men Type: BLOOD SPECIMENOrdering Facility: [facility] Address: [address] [place] [address] Result Comment: Not Applicable. Performed By: #### L [id number] ####[facility]ITAL[facility] [id number] [address] OF [facility] Protein Fractions [Interp] No definitive M protein is identified on protein electrophoresis. Normal No definitive M protein is identified on protein electrophor esis. [facility] Comment on above: Order Comment: Speci men Type: BLOOD SPECIMENOrdering Facility: [facility] Address: [address] [place] [address] Performed By: #### L [id number] ####[facility] LABIA [id number] [address] [place] Protein.monoclonal Elph [Mass/Vol] 0.00 g/dL Normal <=0.00 [facility] Comment on above: Order Comment: Speci men Type: BLOOD SPECIMENOrdering Facility: [facility] Address: [address] [place] [address] Performed By: #### L [id number] ####[facility] LABIA [id number] [place] [address] [place] SPE STAFF REVIEW Reviewed by Dr. Gregg Ortez MD Normal [facility] Comment on above: Order Comment: Speci men Type: BLOOD SPECIMENOrdering Facility: [facility] Address: [address] [place] [address] Performed By: #### L [id number] ####[facility] LABCLIA [id number] [place] [address] [place] Phosphate SerPl-mCncon 08-18 Phosphate [Mass/Vol] 3.6 mg/dL Normal 2.7-4.8 [facility] Comment on above: Order Comment: Speci men Type: BLOOD SPECIMENOrdering Facility: [facility] Address: [address] [place] [address] Performed By: #### 2 532-0, 2777-1, 3084-1, 66145-6 ####[facility] LABIA [id number] [place] [id number] Prot SerPl-mCncon 08-18-2022 Protein [Mass/Vol] 6.9 g/dL Normal 6.3-8.0 [facility] Comment on above: Order Comment: Speci men Type: BLOOD SPECIMENOrdering Facility: [facility] Address: [address] [place] [address] Performed By: #### 1 952-1, 1987-5, 2885-2, 2132-9 ####[facility] LABCLIA [id number] [place] [address] [place] Urate SerPl-mCncon Urate [Mass/Vol] 3.8 mg/dL Normal 2.5-6.6 [facility] Comment on above: Order Comment: Speci men Type: BLOOD SPECIMENOrdering Facility: [facility] Address: [address] [place] [address] Performed By: #### 2 532-0, 2777-1, 3084-1, 13695-9 ####[facility] LABCLIA [id number] [place] [address] Vit B12 SerPl-ncon 023 Cobalamin (Vitamin B12) [Mass/Vol] 325 pg/mL Normal 232-1245 [facility] Comment on above: Order Comment: Speci men Type: BLOOD SPECIMENOrdering Facility: [facility] Address: [address] [place] [id number] Performed By: #### 1 952-1, 1987-, 2884-2, 2132-01 ####[facility] LABCLIA [id number] [address] [address] [place] [facility] CNPNon 07-28-2022 CNPN Normal [facility] CNPNon 07-24-2022 CNPN Normal [facility] MRI KNEE RT WO CONon [...] by: MADELAINE GOMEZ Date: 2022-04-01 08:24 Normal [facility] PNEUMOCOCCAL IGG ABS, 23 SER OTYPESon 03-21-2022 Pneumococcal Interpretation See Note [facility] S. pneumoniae 1 IgG (S) [Mass/Vol] 0.27 ug/mL [facility] S. pneumoniae 12 IgG (S) [Mass/Vol] 0.08 ug/mL [facility] S. pneumoniae 14 IgG (S) [Mass/Vol] 0.19 ug/mL [facility] S. pneumoniae 17 IgG (S) [Mass/Vol] 1.72 ug/mL [facility] S. pneumoniae 19 IgG (S) [Mass/Vol] 1.52 ug/mL [facility] S. pneumoniae 2 IgG (S) [Mass/Vol] 0.44 ug/mL [facility] S. pneumoniae 20 IgG (S) [Mass/Vol] 1.53 ug/mL [facility] S. pneumoniae 22 IgG (S) [Mass/Vol] 0.99 ug/mL [facility] S. pneumoniae 23 IgG (S) [Mass/Vol] 0.14 ug/mL [facility] S. pneumoniae 3 IgG (S) [Mass/Vol] 0.36 ug/mL [facility] S. pneumoniae 34 IgG (S) [Mass/Vol] 5.77 ug/mL [facility] S. pneumoniae 4 IgG (S) [Mass/Vol] 0.06 ug/mL [facility] S. pneumoniae 43 IgG (S) [Mass/Vol] 0.93 ug/mL [facility] S. pneumoniae 5 IgG (S) [Mass/Vol] 0.89 ug/mL [facility] S. pneumoniae 8 IgG (S) [Mass/Vol] 0.58 ug/mL [facility] S. pneumoniae 9 IgG (S) [Mass/Vol] 0.4 ug/mL [facility] S. pneumoniae German type 15B IgG (S) [Mass/Vol] 8.27 ug/mL [facility] S. pneumoniae German type 18C IgG (S) [Mass/Vol] 0.39 ug/mL [facility] S. pneumoniae German type 19A IgG (S) [Mass/Vol] 17.72 ug/mL [facility] S. pneumoniae German type 33F IgG (S) [Mass/Vol] 3.04 ug/mL [facility] S. pneumoniae German type 6B IgG (S) [Mass/Vol] 0.82 ug/mL [facility] S. pneumoniae German type 7F IgG (S) [Mass/Vol] 0.34 ug/mL [facility] S. pneumoniae German type 9V IgG (S) [Mass/Vol] 0.78 ug/mL [facility] XR KNEE RT 4V or >on [...] KRISTINA GARRETT Date: 2022-03-21 16:47 Normal [facility] DIPHTHER/TETANUS ABon 2021 C. diphtheriae IgG Qn (S) 0.1 IU/mL [facility] C. tetani toxoid IgG IA Qn 1 IU/mL [facility] IGA BLDon 03-18-2022 IgA [Mass/Vol] 182 mg/dL 70 - 400 mg/dL [facility] IGE BLDon 03-18-2022 IgE Qn 12.3 kU/l <114.0 kU/l [facility] IGGon 03-18-2022 IgG [Mass/Vol] 618 mg/dL Low 700 - 1,600 mg/dL [facility] IGMon 03-18-2022 IgM [Mass/Vol] 514 mg/dL High 40 - 230 mg/dL [facility] Immunodeficiency panel FC (B ld)on 03-18-2022 CD3 cells (Bld) [#/Vol] 2841 cells/uL High 958 - 2,388 cells/uL [facility] CD3 cells/100 cells (Bld) 81 % 60 - 89 % [facility] CD3+CD4+ (T4 helper) cells (Bld) [#/Vol] 1621 cells/uL 533 - 1,674 cells/uL [facility] CD3+CD4+ (T4 helper) cells/100 cells (Bld) 46 % 34 - 61 % [facility] CD3+CD4+ (T4 helper) cells/CD3+CD8+ (T8 suppressor cells) cells (Bld) [# ratio] 1.55 % 1.10 - 3.25 [facility] CD3+CD8+ (T8 suppressor cells) cells (Bld) [#/Vol] 1049 cells/uL High 175 - 958 cells/uL [facility] CD3+CD8+ (T8 suppressor cells) cells/100 cells (Bld) 30 % 10 - 41 % [facility] CD3-CD16+CD56+ (Natural killer) cells (Bld) [#/Vol] 193 cells/uL 102 - 565 cells/uL [facility] CD3-CD16+CD56+ (Natural killer) cells/100 cells (Bld) 5 % 5 - 25 % [facility] CD3-CD19+ cells (Bld) [#/Vol] 475 cells/uL 75 - 660 cells/uL [facility] CD3-CD19+ cells/100 cells (Bld) 13 % 5 - 22 % [facility] CBC W Auto Differential pane l (Bld)on 03-17-2022 Basophils (Bld) [#/Vol] 0.07 10*3/uL <0.11 k/uL [facility] Basophils/100 WBC (Bld) 0.6 % [facility] Differential cell count method Nom (Bld) Auto [facility] Eosinophils (Bld) [#/Vol] 0.18 10*3/uL <0.46 k/uL [facility] Eosinophils/100 WBC (Bld) 1.6 % [facility] Erythrocyte distribution width (RBC) [Ratio] 14.6 % 11.5 - 15.0 % [facility] Hematocrit (Bld) [Volume fraction] 40.5 % 36.0 - 46.0 % [facility] Hemoglobin (Bld) [Mass/Vol] 13.0 g/dL 11.5 - 15.5 g/dL [facility] Immature granulocytes (Bld) [#/Vol] 0.06 10*3/uL <0.10 k/uL [facility] Immature granulocytes/100 WBC (Bld) 0.5 % [facility] Lymphocytes (Bld) [#/Vol] 2.97 10*3/uL 1.00 - 4.00 k/uL [facility] Lymphocytes/100 WBC (Bld) 26.9 % [facility] MCH (RBC) [Entitic mass] 28.4 pg 26.0 - 34.0 pg [facility] MCHC (RBC) [Mass/Vol] 32.1 g/dL 30.5 - 36.0 g/dL [facility] MCV (RBC) [Entitic vol] 88.4 fL 80.0 - 100.0 fL [facility] Monocytes (Bld) [#/Vol] 0.79 10*3/uL <0.87 k/uL [facility] Monocytes/100 WBC (Bld) 7.2 % [facility] Neutrophils (Bld) [#/Vol] 6.97 10*3/uL 1.45 - 7.50 k/uL [facility] Neutrophils/100 WBC (Bld) 63.2 % [facility] Nucleated RBC (Bld) [#/Vol] <0.01 k/uL [facility] Nucleated RBC/100 WBC (Bld) [Ratio] 0.0 /100 WBC [facility] Platelet mean volume (Bld) [Entitic vol] 9.9 fL 9.0 - 12.7 fL [facility] Platelets (Bld) [#/Vol] 314 10*3/uL 150 - 400 k/uL [facility] RBC (Bld) [#/Vol] 4.58 10*6/uL 3.90 - 5.2 0 m/uL [facility] WBC (Bld) [#/Vol] 11.04 10*3/uL High 3.70 - 11.00 k/uL [facility] ECHOCARDIO M/2D COMPLETEon 1 ECHOCARDIO M/2D COMPLETE Patient: JONES HALEY Exam Date: 03/12/2022 : 1980 Gender:F Ordering : DR MADELAINE FERRIS . Admission #: [id number] Family : Order #: [id number] CLICK HERE TO VIEW EXAM ECHOCARDIOGRAM REPORT [...] 03/16/2022 at 16:47 Normal [facility] INSULINon 03-11-2022 Insulin 17.8 uIU/mL Normal 2.6-24.9 [facility] Comment on above: Performed By: #### C BC #### [facility] [address] [place] [address] Dr. Manda York CBC AUTO DIFFon 03-09-2022 BASO # 0.1 103/ul Normal 0.0-0.1 [facility] Comment on above: Performed By: #### C BC #### [facility] [address] [place] [address] Dr. Manda York Basophils/100 WBC (Bld) 0.4 % Normal 0.2-2.0 [facility] Comment on above: Performed By: #### C BC #### [facility] [address] [place] [address] Dr. Manda York EO # 0.2 103/ul Normal 0.0-0.7 [facility] Comment on above: Performed By: #### C BC #### [facility] [address] [place] [address] Dr. Manda York Eosinophils/100 WBC (Bld) 1.2 % Normal 0.9-7.0 [facility] Comment on above: Performed By: #### C BC #### [facility] [address] [place] [address] Dr. Manda York Erythrocyte distribution width (RBC) [Ratio] 14.6 % Normal 11.0-15.0 [facility] Comment on above: Performed By: #### C BC #### [facility] [address] [place] [address] Dr. Manda York Hematocrit (Bld) [Volume fraction] 39.2 % Normal 36.0-48.0 [facility] Comment on above: Performed By: #### C BC #### [facility] [address] [place] [address] Dr. Manda York Hemoglobin (Bld) [Mass/Vol] 12.7 g/dL Normal 12.0-16.0 [facility] Comment on above: Performed By: #### C BC #### [facility] [address] [place] [address] Dr. Manda York IG # 0.06 10e3/ul Critically high 0.00-0.03 [facility] Comment on above: Performed By: #### C BC #### [facility] [address] [place] [address] Dr. Manda York IG % 0.5 % Normal 0.0-0.5 [facility] Comment on above: Performed By: #### C BC #### [facility] [address] [place] [address] Dr. Manda York LYMPH # 3.7 103/ul Normal 1.2-3.8 [facility] Comment on above: Performed By: #### C BC #### [facility] [address] [place] [address] Dr. Manda York Lymphocytes/100 WBC (Bld) 31.0 % Normal 20.5-60.0 [facility] Comment on above: Performed By: #### C BC #### [facility] [address] [place] [address] Dr. Manda York MANUAL DIFF REQ NO Normal [facility] Comment on above: Performed By: #### C BC #### [facility] [address] [place] [address] Dr. Manda York MCH (RBC) [Entitic mass] 28.9 pg Normal 26.7-34.0 [facility] Comment on above: Performed By: #### C BC #### [facility] [address] [place] [address] Dr. Manda York MCHC (RBC) [Mass/Vol] 32.4 g/dL Normal 29.9-35.2 [facility] Comment on above: Performed By: #### C BC #### [facility] [address] [place] [address] Dr. Manda York MCV (RBC) [Entitic vol] 89.1 fL Normal 81.0-99.0 [facility] Comment on above: Performed By: #### C BC #### [facility] [address] [place] [address] Dr. Manda York MONO # 0.7 103/ul Normal 0.3-0.8 [facility] Comment on above: Performed By: #### C BC #### [facility] [address] [place] [address] Dr. Manda York Monocytes/100 WBC (Bld) 5.8 % Normal 1.7-12.0 [facility] Comment on above: Performed By: #### C BC #### [facility] [address] [place] [address] Dr. Manda York NEUT # 7.3 103/ul Critically high 1.4-6.5 [facility] Comment on above: Performed By: #### C BC #### [facility] [address] [address] [address] Manda York Neutrophils/100 WBC (Bld) 61.1 % Normal 43.0-75.0 [facility] Comment on above: Performed By: #### C BC #### [facility] [address] [place] [address] [address] Manda York Platelet mean volume (Bld) [Entitic vol] 9.7 fL Normal 9.5-13.5 [facility] Comment on above: Performed By: #### C BC #### [facility] [address] [place] [address] Dr. Manda York PLT 297 103/ul Normal 150-450 [facility] Comment on above: Performed By: #### C BC #### [facility] [address] [place] [address] Dr. Manda York RBC 4.40 106/ul Normal 4.20-5.40 [facility] Comment on above: Performed By: #### C BC #### [facility] [address] [place] [address] Dr. Manda York WBC 12.0 103/ul Critically high 4.0-11.0 [facility] Comment on above: Performed By: #### C BC #### [facility] [address] [place] [address] Dr. Manda York FREE THYROXINE INDEX T7on FTI 3.81 Normal 1.30-4.50 [facility] Comment on above: Performed By: #### U AMIC #### [facility] [address] [place] [address] Dr. Manda York T3U 34.0 % Normal 30.0-39.0 [facility] Comment on above: Performed By: #### U AMIC #### [facility] [address] [place] [address] Dr. Manda York T4 [Mass/Vol] 11.20 ug/dL Normal 4.80-13.90 [facility] Comment on above: Performed By: #### U AMIC #### [facility] [address] [place] [address] Dr. Manda York GLYCOHEMOGLOBIN A1Con 2021 ADA RECOMMENDATION SEE BELOW Normal [facility] Comment on above: Result Comment: ADA RECOMMENDED LIMIT 4.0 - 6.0 ADA THERAPEUTIC TARGET < 7.0 ACTION SUGGESTED > 7.0 Performed By: #### S LUIGI MELO #### [facility] [address] [place] [address] Dr. Manda York Glucose [Mass/Vol] 117 mg/dL Normal [facility] Comment on above: Performed By: #### S LUIGI MELO #### [facility] [address] [place] [address] Dr. Manda York HbA1c (Bld) [Mass fraction] 5.7 % Normal 4.5-6.2 [facility] Comment on above: Performed By: #### LUIGI PATRICK #### [facility] [address] [place] [address] Dr. Manda York IRONon 03-09-2022 Iron [Mass/Vol] 61.0 ug/dL Normal 50.0-170.0 [facility] Comment on above: Performed By: #### C BC #### [facility] [address] [place] [address] Dr. Manda York LIPID PROFILEon 03-09-2022 CHOL-HDL RATIO NORM SEE BELOW Normal [facility] Comment on above: Result Comment: 3.3 - 4.4 LOW RISK 4.4 - 7.1 AVERAGE RISK 7.1 - 11.0 MODERATE RISK >11.0 HIGH RISK Performed By: #### U AMIC #### [facility] [address] [place] [address] Dr. Manda York Cholesterol [Mass/Vol] 260 mg/dL Critically high <=200 [facility] Comment on above: Performed By: #### U AMIC #### [facility] [address] [place] [address] Dr. Manda York Cholesterol in HDL [Mass/Vol] 38 mg/dL Critically low 40-60 [facility] Comment on above: Performed By: #### U AMIC #### [facility] [address] [address] [address] Manda York Cholesterol in LDL [Mass/Vol] 170.8 mg/dL Normal [facility] Comment on above: Performed By: #### U AMIC #### [facility] [address] [address] [address] Manda York Cholesterol.total/Ch olesterol in HDL [Mass ratio] 6.8 {ratio} Normal [facility] Comment on above: Performed By: #### U AMIC #### [facility] [address] [address] [address] Manda York HDL NORMAL > or = 60 mg/dl - LO W CARDIOVASCULAR RISK <40 mg/dl - HIGH CARDIOVASCULAR RISK Normal [facility] Comment on above: Performed By: #### U AMIC #### [facility] [address] [address] [address] Manda York LDL CALC NORMAL SEE BELOW Normal [facility] Comment on above: Result Comment: <100 mg/dl OPTIMAL 100 - 129 mg/dl NEAR OR ABOVE OPTIMAL 130 - 159 mg/dl BORDERLINE HIGH 160 - 189 mg/dl HIGH >190 mg/dl VERY HIGH Performed By: #### U AMIC #### [facility] [address] [address] [address] Manda York Triglyceride [Mass/Vol] 256 mg/dL Critically high <=150 [facility] Comment on above: Performed By: #### U AMIC #### [facility] [address] [address] [address] Manda York VLDL CALC 51.2 mg/dL Normal [facility] Comment on above: Performed By: #### U AMIC #### [facility] [address] [address] [address] Manda York PROF 14(COMP METB)on 022 Albumin [Mass/Vol] 3.8 g/dL Normal 3.4-5.0 [facility] Comment on above: Performed By: #### U AMIC #### [facility] [address] [place] [address] Dr. Manda York Albumin/Globulin [Mass ratio] 1.0 {ratio} Normal [facility] Comment on above: Performed By: #### U AMIC #### [facility] [address] [address] [address] Manda York ALP [Catalytic activity/Vol] 66 U/L Normal 46-116 [facility] Comment on above: Performed By: #### U AMIC #### [facility] Laboratory [address] [address] [address] Manda York ALT [Catalytic activity/Vol] 27 U/L Normal 14-59 [facility] Comment on above: Performed By: #### U AMIC #### [facility] Laboratory [address] [address] [address] Manda York Anion gap [Moles/Vol] 11.8 mmol/L Normal [facility] Comment on above: Performed By: #### U AMIC #### [facility] [address] [address] [address] Manda York AST [Catalytic activity/Vol] 9 U/L Critically low 15-37 [facility] Comment on above: Performed By: #### U AMIC #### [facility] [address] [address] [address] Manda York Bilirubin [Mass/Vol] 0.2 mg/dL Normal 0.2-1.0 [facility] Comment on above: Performed By: #### U AMIC #### [facility] [address] [address] [address] Manda York Calcium [Mass/Vol] 9.1 mg/dL Normal 8.5-10.1 [facility] Comment on above: Performed By: #### U AMIC #### [facility] [address] [address] [address] Manda York Chloride [Moles/Vol] 101 mmol/L Normal 98-107 [facility] Comment on above: Performed By: #### U AMIC #### [facility] [address] [address] [address] Manda York CO2 [Moles/Vol] 26.1 mmol/L Normal 21.0-32.0 [facility] Comment on above: Performed By: #### U AMIC #### [facility] [address] [address] [address] Manda York Creatinine [Mass/Vol] 0.80 mg/dL Normal 0.55-1.02 [facility] Comment on above: Performed By: #### U AMIC #### [facility] [address] [address] [address] Manda York EGFR-AF ERITREAN >60 Normal >=60 [facility] Comment on above: Performed By: #### U AMIC #### [facility] [address] [address] [address] Manda York EGFR-NON AF ERITREAN >60 Normal >=60 [facility] Comment on above: Performed By: #### U AMIC #### [facility] [address] [place] [address] Dr. Manda York Globulin (S) [Mass/Vol] 3.8 g/dL Normal [facility] Comment on above: Performed By: #### U AMIC #### [facility] [address] [place] [address] Dr. Manda York Glucose [Mass/Vol] 93 mg/dL Normal 74-106 [facility] Comment on above: Performed By: #### U AMIC #### [facility] Laboratory [address] [place] [address] Dr. Manda York Potassium [Moles/Vol] 3.9 mmol/L Normal 3.5-5.1 [facility] Comment on above: Performed By: #### U AMIC #### [facility] Laboratory [address] [place] [address] Dr. Manda York Protein [Mass/Vol] 7.6 g/dL Normal 6.4-8.2 [facility] Comment on above: Performed By: #### U AMIC #### [facility] Laboratory [address] [place] [address] Dr. Manda York Sodium [Moles/Vol] 135 mmol/L Critically low 136-145 [facility] Comment on above: Performed By: #### U AMIC #### [facility] [address] [address] [address] Manda York Urea nitrogen [Mass/Vol] 10.0 mg/dL Normal 7.0-18.0 [facility] Comment on above: Performed By: #### U AMIC #### [facility] [address] [address] [address] Manda York Urea nitrogen/Creatinine [Mass ratio] 12.5 mg/mg Normal [facility] Comment on above: Performed By: #### U AMIC #### [facility] [address] [address] [address] Manda York TSHon 03-09-2022 TSH 0.610 uIU/mL Normal 0.358-3.740 [facility] Comment on above: Performed By: #### U AMIC #### [facility] [address] [address] [address] Manda York B2 MICROGLOBULIN Bon 022 Lquk-7-Purcramxgoqib [Mass/Vol] 1.8 ug/mL 0.8 - 2.4 mg/L [facility] FERRITIN BLDon 03-05-2022 Ferritin [Mass/Vol] 33.2 ng/mL 14.7 - 205.1 ng/mL [facility] FOLATE SERUMon 03-05-2022 Folate [Mass/Vol] 6.6 ng/mL >4.7 ng/mL [facility] Iron and Iron binding capaci ty panelon 03-05-2022 Iron [Mass/Vol] 49 ug/dL 41 - 186 ug/dL [facility] Iron binding capacity [Mass/Vol] 392 ug/dL High 232 - 386 ug/dL [facility] Iron/TIBC [Molar ratio] 12.5 % Low 15.0 - 57.0 % [facility] CBC W Auto Differential pane l (Bld)on 03-04-2022 Basophils (Bld) [#/Vol] 0.07 10*3/uL <0.11 k/uL [facility] Basophils/100 WBC (Bld) 0.6 % [facility] Differential cell count method Nom (Bld) Auto [facility] Eosinophils (Bld) [#/Vol] 0.19 10*3/uL <0.46 k/uL [facility] Eosinophils/100 WBC (Bld) 1.7 % [facility] Erythrocyte distribution width (RBC) [Ratio] 14.7 % 11.5 - 15.0 % [facility] Hematocrit (Bld) [Volume fraction] 40.0 % 36.0 - 46.0 % [facility] Hemoglobin (Bld) [Mass/Vol] 13.0 g/dL 11.5 - 15.5 g/dL [facility] Immature granulocytes (Bld) [#/Vol] 0.07 10*3/uL <0.10 k/uL [facility] Immature granulocytes/100 WBC (Bld) 0.6 % [facility] Lymphocytes (Bld) [#/Vol] 3.31 10*3/uL 1.00 - 4.00 k/uL [facility] Lymphocytes/100 WBC (Bld) 30.2 % [facility] MCH (RBC) [Entitic mass] 28.9 pg 26.0 - 34.0 pg [facility] MCHC (RBC) [Mass/Vol] 32.5 g/dL 30.5 - 36.0 g/dL [facility] MCV (RBC) [Entitic vol] 88.9 fL 80.0 - 100.0 fL [facility] Monocytes (Bld) [#/Vol] 0.70 10*3/uL <0.87 k/uL [facility] Monocytes/100 WBC (Bld) 6.4 % [facility] Neutrophils (Bld) [#/Vol] 6.63 10*3/uL 1.45 - 7.50 k/uL [facility] Neutrophils/100 WBC (Bld) 60.5 % [facility] Nucleated RBC (Bld) [#/Vol] <0.01 k/uL [facility] Nucleated RBC/100 WBC (Bld) [Ratio] 0.0 /100 WBC [facility] Platelet mean volume (Bld) [Entitic vol] 9.6 fL 9.0 - 12.7 fL [facility] Platelets (Bld) [#/Vol] 355 10*3/uL 150 - 400 k/uL [facility] RBC (Bld) [#/Vol] 4.50 10*6/uL 3.90 - 5.2 0 m/uL [facility] WBC (Bld) [#/Vol] 10.97 10*3/uL 3.70 - 11.00 k/uL [facility] Calcium.ionized [Moles/Vol]o n 03-04-2022 Calcium.ionized (Bld) [Mass/Vol] 1.26 mmol/L 1.08 - 1.30 mmol/L [facility] Calcium.ionized adjusted to pH 7.4 (Bld) [Moles/Vol] 1.25 mmol/L 1.08 - 1.30 mmol/L [facility] Comprehensive metabolic 2000 panelon 03-04-2022 Albumin [Mass/Vol] 4.3 g/dL 3.9 - 4.9 g/dL [facility] ALP [Catalytic activity/Vol] 70 U/L 34 - 123 U/L [facility] ALT [Catalytic activity/Vol] 26 U/L 7 - 38 U/L [facility] Anion gap [Moles/Vol] 7 mmol/L Low 9 - 18 mmol/L [facility] AST [Catalytic activity/Vol] 12 U/L Low 13 - 35 U/L [facility] Bilirubin [Mass/Vol] 0.2 mg/dL 0.2 - 1 .3 mg/dL [facility] Calcium [Mass/Vol] 9.3 mg/dL 8.5 - 10. 2 mg/dL [facility] Chloride [Moles/Vol] 103 mmol/L 97 - 10 5 mmol/L [facility] CO2 [Moles/Vol] 28 mmol/L 22 - 30 mmol/L [facility] Creatinine [Mass/Vol] 0.69 mg/dL 0.58 - 0.96 mg/dL [facility] Estimated Glomerular Filtration Rate 112 mL/min/1.73m >=60 mL/min/1.73 m [facility] Glucose [Mass/Vol] 100 mg/dL High 74 - 99 mg/dL [facility] Potassium [Moles/Vol] 3.9 mmol/L 3.7 - 5.1 mmol/L [facility] Protein [Mass/Vol] 7.0 g/dL 6.3 - 8.0 g/dL [facility] Sodium [Moles/Vol] 138 mmol/L 136 - 144 mmol/L [facility] Urea nitrogen [Mass/Vol] 12 mg/dL 7 - 21 mg/dL [facility] LD LACTATE DEHYDROon 022 LDH [Catalytic activity/Vol] 135 U/L 135 - 214 U/L [facility] PHOSPHORUS INORGANICon 03-04 Phosphate [Mass/Vol] 3.2 mg/dL 2.7 - 4 .8 mg/dL [facility] URIC ACID BLOODon 03-04-2022 Urate [Mass/Vol] 5.2 mg/dL 2.5 - 6.6 mg/dL [facility] IMMUNOGLOBULINS IGA/IGM/IGG/ IGE QUANTITAon 02-20-2022 Immunoglobulin A, Qn, Serum 189 mg/dL Normal 87-352 [facility] Comment on above: Result Comment: Perf ormed at: CB Performed By: #### Tye MELO THYLC #### [facility] [address] [address] [address] Manda York Immunoglobulin E, Total 10 IU/mL Normal 6-495 [facility] Comment on above: Result Comment: Perf ormed at: BN Performed By: #### LEANN PATRICKC #### [facility] [address] [address] [address] Manda York Immunoglobulin G, Qn, Serum 598 mg/dL Normal 586-1602 [facility] Comment on above: Result Comment: Perf ormed at: CB Performed By: #### LEANN PATRICKC #### [facility] [address] [address] [address] Manda York Immunoglobulin M, Qn, Serum 493 mg/dL Critically high 26-217 [facility] Comment on above: Result Comment: Perf ormed at: CB Performed By: #### Tye MELO THYLC #### [facility] [address] [place] [address] Dr. Manda York CHRISTIAN by IFAon 02-19-2022 Antinuclear Antibodies, IFA Negative Normal [facility] Comment on above: Result Comment: Nega tive <1:80 Borderline 1:80 Positive >1:80 ICAP nomenclature: [id number] For more information about Hep-2 cell patterns use ANApatterns.org, the official website for the International Consensus on Antinuclear Antibody (CHRISTIAN) Patterns (ICAP). Performed By: #### LEANN PATRICKC #### [facility] [address] [place] [address] Dr. Manda York THYROID ANTIBODIESon Thyroglobulin Antibody <1.0 Normal 0.0-0.9 [facility] Comment on above: Result Comment: Thyr oglobulin Antibody measured by [employer] Methodology Performed By: #### F T4 #### [facility] [address] [place] [address] Dr. Manda York Thyroid Peroxidase (TPO) Ab <8 Normal 0-34 [facility] Comment on above: Performed By: #### F T4 #### [facility] [address] [place] [address] Dr. Manda York PROTEIN ELECTROPHERESISon Albumin [Mass/Vol] 3.2 g/dL Normal 2.9-4.4 [facility] Comment on above: Performed By: #### F T4 #### [facility] [address] [place] [address] Dr. Manda York Albumin/Globulin [Mass ratio] 1.0 {ratio} Normal 0.7-1.7 [facility] Comment on above: Performed By: #### F T4 #### [facility] [address] [place] [address] Dr. Manda York Jrwfx-5-Jhqpoibd 0.2 g/dL Normal 0.0-0.4 [facility] Comment on above: Performed By: #### F T4 #### [facility] [address] [place] [address] Dr. Manda York Arbva-6-Akwlzhbw 0.9 g/dL Normal 0.4-1.0 [facility] Comment on above: Performed By: #### F T4 #### [facility] [address] [place] [address] Dr. Manda York Beta Globulin 1.2 g/dL Normal 0.7-1.3 [facility] Comment on above: Performed By: #### F T4 #### [facility] [address] [place] [address] Dr. Manda York Gamma Globulin 0.9 g/dL Normal 0.4-1.8 [facility] Comment on above: Performed By: #### F T4 #### [facility] [address] [place] [address] Dr. Manda York Globulin (S) [Mass/Vol] 3.2 g/dL Normal 2.2-3.9 [facility] Comment on above: Performed By: #### F T4 #### [facility] [address] [place] [address] Dr. Manda York M-Jose De Jesus Not Observed Normal Not Observed [facility] Comment on above: Performed By: #### F T4 #### [facility] [address] [place] [address] Dr. Manda York PDF . Normal [facility] Comment on above: Performed By: #### F T4 #### [facility] [address] [place] [address] Dr. Manda York Please note: Comment Normal [facility] Comment on above: Result Comment: Prot ein electrophoresis scan will follow via computer, mail, or glass deposition tender delivery. Performed By: #### F T4 #### [facility] [address] [place] [address] Dr. Manda oYrk Protein [Mass/Vol] 6.4 g/dL Normal 6.0-8.5 [facility] Comment on above: Performed By: #### F T4 #### [facility] [address] [place] [address] Dr. Manda York SLE PROFILE Aon 02-16-2022 Anti-DNA (DS) Ab Qn 9 IU/mL Normal 0-9 [facility] Comment on above: Result Comment: Nega tive <5 Equivocal 5 - 9 Positive >9 Performed By: #### S LUIGI MELO #### [facility] [address] [place] [address] Dr. Manda York Antichromatin Antibodies <0.2 Normal 0.0-0.9 [facility] Comment on above: Performed By: #### S LEANN MELOC #### [facility] [address] [place] [address] Dr. Manda York RA Latex Turbid. <10.0 Normal <14.0 [facility] Comment on above: Performed By: #### S LEANN MELOC #### [facility] [address] [place] [address] Dr. Manda York ELECTRIC SHOVEL OPERATOR Antibodies <0.2 Normal 0.0-0.9 [facility] Comment on above: Performed By: #### S LEANN MELOC #### [facility] [address] [place] [address] Dr. Manda York Sjogryaniv'tye Anti-SS-A <0.2 Normal 0.0-0.9 [facility] Comment on above: Performed By: #### S LEANN MELOC #### [facility] [address] [place] [address] Dr. Manda Solorzanoogryaniv'tye Anti-SS-B <0.2 Normal 0.0-0.9 [facility] Comment on above: Performed By: #### LUIGI PATRICK #### [facility] [address] [place] [address] Dr. Manda York Schneider Antibodies <0.2 Normal 0.0-0.9 [facility] Comment on above: Performed By: #### S LUIGI MELO #### [facility] [address] [place] [address] Dr. Manda York ANTISTREPTOLYSIN O AB (ASO)o n 02-15-2022 Antistreptolysin O Ab 49.6 IU/mL Normal 0.0-200.0 [facility] Comment on above: Performed By: #### A SOAB #### [facility] [address] [place] [address] Dr. Manda York MICROALBUMIN URINEon 022 Albumin, Urine <3.0 Normal Not Estab. [facility] Comment on above: Result Comment: Ve rified by repeat analysis Performed By: #### C BC #### [facility] [address] [place] [address] Dr. Manda York T4, T3U, FTI LABCORPon 02-15 Free Thyroxine Index 2.6 Normal 1.2-4.9 [facility] Comment on above: Performed By: #### S LUIGI MELO #### [facility] [address] [place] [address] Dr. Manda York T3 Uptake 26 % Normal 24-39 [facility] Comment on above: Performed By: #### S LEANN MELOC #### [facility] [address] [place] [address] Dr. Manda York T4 [Mass/Vol] 9.9 ug/dL Normal 4.5-12.0 [facility] Comment on above: Performed By: #### S LEANN MELOC #### [facility] [address] [place] [address] Dr. Manda York CBC AUTO DIFFon 02-14-2022 BASO # 0.1 103/ul Normal 0.0-0.1 [facility] Comment on above: Performed By: #### U AMIC #### [facility] [address] [place] [address] Dr. Manda York Basophils/100 WBC (Bld) 0.6 % Normal 0.2-2.0 [facility] Comment on above: Performed By: #### U AMIC #### [facility] [address] [place] [address] Dr. Manda York EO # 0.3 103/ul Normal 0.0-0.7 [facility] Comment on above: Performed By: #### U AMIC #### [facility] [address] [place] [address] Dr. Manda York Eosinophils/100 WBC (Bld) 3.4 % Normal 0.9-7.0 [facility] Comment on above: Performed By: #### U AMIC #### [facility] [address] [place] [address] Dr. Manda York Erythrocyte distribution width (RBC) [Ratio] 14.6 % Normal 11.0-15.0 [facility] Comment on above: Performed By: #### U AMIC #### [facility] [address] [place] [address] Dr. Manda York Hematocrit (Bld) [Volume fraction] 39.1 % Normal 36.0-48.0 [facility] Comment on above: Performed By: #### U AMIC #### [facility] [address] [address] [address] Manda York Hemoglobin (Bld) [Mass/Vol] 12.4 g/dL Normal 12.0-16.0 [facility] Comment on above: Performed By: #### U AMIC #### [facility] [address] [address] [address] Manda York IG # 0.03 10e3/ul Normal 0.00-0.03 [facility] Comment on above: Performed By: #### U AMIC #### [facility] [address] [place] [address] Dr. Manda York IG % 0.3 % Normal 0.0-0.5 [facility] Comment on above: Performed By: #### U AMIC #### [facility] [address] [place] [address] Dr. Manda York LYMPH # 3.6 103/ul Normal 1.2-3.8 [facility] Comment on above: Performed By: #### U AMIC #### [facility] [address] [place] [address] Dr. Manda York Lymphocytes/100 WBC (Bld) 39.9 % Normal 20.5-60.0 [facility] Comment on above: Performed By: #### U AMIC #### [facility] [address] [place] [address] Dr. Manda York MANUAL DIFF REQ NO Normal [facility] Comment on above: Performed By: #### U AMIC #### [facility] [address] [place] [address] Dr. Manda York MCH (RBC) [Entitic mass] 28.4 pg Normal 26.7-34.0 [facility] Comment on above: Performed By: #### U AMIC #### [facility] [address] [place] [address] Dr. Manda York MCHC (RBC) [Mass/Vol] 31.7 g/dL Normal 29.9-35.2 [facility] Comment on above: Performed By: #### U AMIC #### [facility] [address] [address] [address] Manda York MCV (RBC) [Entitic vol] 89.7 fL Normal 81.0-99.0 [facility] Comment on above: Performed By: #### U AMIC #### [facility] [address] [address] [address] Manda York MONO # 0.7 103/ul Normal 0.3-0.8 [facility] Comment on above: Performed By: #### U AMIC #### [facility] [address] [address] [address] Manda York Monocytes/100 WBC (Bld) 7.3 % Normal 1.7-12.0 [facility] Comment on above: Performed By: #### U AMIC #### [facility] [address] [address] [address] Manda York NEUT # 4.4 103/ul Normal 1.4-6.5 [facility] Comment on above: Performed By: #### U AMIC #### [facility] [address] [place] [address] Dr. Manda York Neutrophils/100 WBC (Bld) 48.5 % Normal 43.0-75.0 [facility] Comment on above: Performed By: #### U AMIC #### [facility] [address] [address] [address] Manda York Platelet mean volume (Bld) [Entitic vol] 10.1 fL Normal 9.5-13.5 [facility] Comment on above: Performed By: #### U AMIC #### [facility] [address] [address] [address] Manda York PLT 310 103/ul Normal 150-450 [facility] Comment on above: Performed By: #### U AMIC #### [facility] [address] [address] [address] Manda York RBC 4.36 106/ul Normal 4.20-5.40 [facility] Comment on above: Performed By: #### U AMIC #### [facility] [address] [address] [address] Manda York WBC 9.0 103/ul Normal 4.0-11.0 [facility] Comment on above: Performed By: #### U AMIC #### [facility] [address] [place] [address] Dr. Manda York CRPon 02-14-2022 CRP [Mass/Vol] mg/L Normal <=1.0 [facility] Comment on above: Performed By: #### U AMIC #### [facility] [address] [place] [address] Dr. Manda York CULTURE URINEon 02-14-2022 CULTURE URINE Culture Observations : LIGHT GROWTH OF MIXED GENITAL AMBER. NO POTENTIAL PATHOGENS SEEN. Normal [facility] Comment on above: Performed By: #### C BC #### [facility] [address] [place] [address] Dr. Manda York PROF 14(COMP METB)on 022 Albumin [Mass/Vol] 3.5 g/dL Normal 3.4-5.0 [facility] Comment on above: Performed By: #### U AMIC #### [facility] [address] [place] [address] Dr. Manda York Albumin/Globulin [Mass ratio] 1.0 {ratio} Normal [facility] Comment on above: Performed By: #### U AMIC #### [facility] [address] [place] [address] Dr. Manda York ALP [Catalytic activity/Vol] 71 U/L Normal 46-116 [facility] Comment on above: Performed By: #### U AMIC #### [facility] [address] [place] [address] Dr. Manda York ALT [Catalytic activity/Vol] 46 U/L Normal 14-59 [facility] Comment on above: Performed By: #### U AMIC #### [facility] [address] [place] [address] Dr. Manda York Anion gap [Moles/Vol] 11.6 mmol/L Normal [facility] Comment on above: Performed By: #### U AMIC #### [facility] [address] [address] [address] Manda York AST [Catalytic activity/Vol] 15 U/L Normal 15-37 [facility] Comment on above: Performed By: #### U AMIC #### [facility] [address] [address] [address] Manda York Bilirubin [Mass/Vol] 0.2 mg/dL Normal 0.2-1.0 [facility] Comment on above: Performed By: #### U AMIC #### [facility] [address] [address] [address] Manda York Calcium [Mass/Vol] 8.7 mg/dL Normal 8.5-10.1 [facility] Comment on above: Performed By: #### U AMIC #### [facility] [address] [address] [address] Manda York Chloride [Moles/Vol] 104 mmol/L Normal 98-107 [facility] Comment on above: Performed By: #### U AMIC #### [facility] [facility] [address] [address] [address] Manda York CO2 [Moles/Vol] 25.1 mmol/L Normal 21.0-32.0 [facility] Comment on above: Performed By: #### U AMIC #### [facility] [address] [address] [address] Manda York Creatinine [Mass/Vol] 0.80 mg/dL Normal 0.55-1.02 [facility] Comment on above: Performed By: #### U AMIC #### [facility] [address] [address] [address] Manda York EGFR-AF ERITREAN >60 Normal >=60 [facility] Comment on above: Performed By: #### U AMIC #### [facility] [address] [address] [address] Manda York EGFR-NON AF ERITREAN >60 Normal >=60 [facility] Comment on above: Performed By: #### U AMIC #### [facility] [address] [address] [address] Manda York Globulin (S) [Mass/Vol] 3.6 g/dL Normal [facility] Comment on above: Performed By: #### U AMIC #### [facility] [address] [address] [address] Manda York Glucose [Mass/Vol] 92 mg/dL Normal 74-106 [facility] Comment on above: Performed By: #### U AMIC #### [facility] [address] [address] [address] Manda York Potassium [Moles/Vol] 3.7 mmol/L Normal 3.5-5.1 [facility] Comment on above: Performed By: #### U AMIC #### [facility] [address] [place] [address] Dr. Manda York Protein [Mass/Vol] 7.1 g/dL Normal 6.4-8.2 [facility] Comment on above: Performed By: #### U AMIC #### [facility] [address] [address] [address] Manda York Sodium [Moles/Vol] 137 mmol/L Normal 136-145 [facility] Comment on above: Performed By: #### U AMIC #### [facility] [address] [place] [address] Dr. Manda York Urea nitrogen [Mass/Vol] 17.0 mg/dL Normal 7.0-18.0 [facility] Comment on above: Performed By: #### U AMIC #### [facility] [address] [address] [address] Manda York Urea nitrogen/Creatinine [Mass ratio] 21.2 mg/mg Normal [facility] Comment on above: Performed By: #### U AMIC #### [facility] [address] [address] [address] Manda York SED RATE [facility] 2021 SED RATE 40 mm/hr Critically high <=20 [facility] Comment on above: Performed By: #### S EDR #### [facility] [address] [address] [address] Manda York TSHon 02-14-2022 TSH 1.155 uIU/mL Normal 0.358-3.740 [facility] Comment on above: Performed By: #### U AMIC #### [facility] [address] [place] [address] Dr. Manda York UA RANDOM W/MICROSCOPICon BACTERIA NONE SEEN Normal NONE SEEN [facility] Comment on above: Performed By: #### U AMIC #### [facility] [address] [place] [address] Dr. Manda York Bilirubin Ql (U) Negative Normal NEGATIVE [facility] Comment on above: Performed By: #### U AMIC #### [facility] [address] [place] [address] Dr. Manda York CAST NONE SEEN Normal NONE SEEN [facility] Comment on above: Performed By: #### U AMIC #### [facility] [address] [place] [address] Dr. Manda York Clarity (U) CLEAR Normal CLEAR [facility] Comment on above: Performed By: #### U AMIC #### [facility] [address] [place] [address] Dr. Manda York Color (U) LT. YELLOW Normal YELLOW [facility] Comment on above: Performed By: #### U AMIC #### [facility] [address] [place] [address] Dr. Manda York Crystals LM Nom (Urine sed) NONE SEEN Normal NONE SEEN [facility] Comment on above: Performed By: #### U AMIC #### [facility] [address] [address] [address] Manda York Epithelial cells LM Ql (Urine sed) RARE Normal NONE SEEN /RARE [facility] Comment on above: Performed By: #### U AMIC #### [facility] [address] [place] [address] Dr. Manda York Glucose Ql (U) Negative Normal NEGATIVE [facility] Comment on above: Performed By: #### U AMIC #### [facility] [address] [address] [address] Manda York Hemoglobin Ql (U) Negative Normal NEGATIVE [facility] Comment on above: Performed By: #### U AMIC #### [facility] [address] [address] [address] Manda York Ketones Ql (U) Negative Normal NEGATIVE [facility] Comment on above: Performed By: #### U AMIC #### [facility] [address] [address] [address] Manda York LEUKOCYTES Negative Normal NEGATIVE [facility] Comment on above: Performed By: #### U AMIC #### [facility] [address] [place] [address] Dr. Manda York MUCOUS NONE SEEN Normal NONE SEEN [facility] Comment on above: Performed By: #### U AMIC #### [facility] [address] [place] [address] Dr. Manda York Nitrite Ql (U) Negative Normal NEGATIVE [facility] Comment on above: Performed By: #### U AMIC #### [facility] [address] [place] [address] Dr. Manda York pH (U) 6.0 [pH] Normal 5-9 [facility] Comment on above: Performed By: #### U AMIC #### [facility] [address] [place] [address] Dr. Manda York RBC NONE SEEN Abnormal 0-2 [facility] Comment on above: Performed By: #### U AMIC #### [facility] [address] [place] [address] Dr. Manda York SPEC GRAVITY 1.005 Normal 1.005-<=1.0 25 [facility] Comment on above: Performed By: #### U AMIC #### [facility] [address] [place] [address] Dr. Manda York UA PROTEIN Negative Normal NEGATIVE/ TRACE [facility] Comment on above: Performed By: #### U AMIC #### [facility] [address] [place] [address] Dr. Manda York Urobilinogen Qn (U) 0.2 {Carmella'U}/dL Normal 0.2 - 1. 0 [facility] Comment on above: Performed By: #### U AMIC #### [facility] [address] [place] [address] Dr. Manda York WBC NONE SEEN Normal NONE SEEN [facility] Comment on above: Performed By: #### U AMIC #### [facility] [address] [place] [address] Dr. Manda York URIC ACID SERUMon 02-14-2022 Urate [Mass/Vol] 4.2 mg/dL Normal 2.6-6.0 [facility] Comment on above: Performed By: #### U AMIC #### [facility] [address] [place] [address] Dr. Manda York VITAMIN D 25 OHon 02-14-2022 VIT D 25-OH 22.4 ng/mL Normal [facility] Comment on above: Performed By: #### F T4 #### [facility] [address] [place] [address] Dr. Manda York VIT D RANGES SEE BELOW Normal [facility] Comment on above: Result Comment: <20 ng/mL Vit D deficient 20 - <30 ng/mL Vit D insufficient 30 - 100 ng/mL Vit D sufficient >100 ng/mL Potential Toxicity Performed By: #### F T4 #### [facility] [address] [place] [address] Dr. Manda York METANEPHRINES FRAC. QNT 24 H R URINEon 11-28-2021 Metanephrine, U,24hr Comment Normal 36-209 [facility] Comment on above: Result Comment: No t otal volume submitted. Unable to calculate 24 hour result. Performed By: #### S LUIGI MELO #### [facility] [address] [place] [address] Dr. Manda York Metanephrine, Ur 57 ug/L Normal Undefined [facility] Comment on above: Performed By: #### S LUIGI MELO #### [facility] [address] [place] [address] Dr. Manda York Normetanephr.,U,24h Comment Normal 131-612 [facility] Comment on above: Result Comment: No t otal volume submitted. Unable to calculate 24 hour result. Performed By: #### LEANN PATRICKC #### [facility] [address] [address] [address] Manda York Normetanephrine, Ur 116 ug/L Normal Undefined [facility] Comment on above: Performed By: #### LEANN PATRICK #### [facility] [address] [address] [address] Manda York METANEPHRINES PLASMA FREEon 11-27-2021 Metanephrine, Pl 22.1 pg/mL Normal 0.0-88.0 [facility] Comment on above: Performed By: #### LEANN PATRICK #### [facility] [address] [place] [address] Dr. Manda York Normetanephrine, Pl 50.7 pg/mL Normal 0.0-218.9 [facility] Comment on above: Performed By: #### LEANN PATRICK #### [facility] [address] [address] [address] Manda York CMV PLASMA PCRon 11-19-2021 CMV Quant DNA PCR (Plasma) Negative Normal Negative [facility] Comment on above: Result Comment: No C MV DNA detected. The quantitative range of this assay is 200 to 1 million IU/mL. Performed By: #### LEANN PATRICK #### [facility] [address] [place] [address] Dr. Manda York log10 CMV Qn DNA Pl UPTCAL Normal [facility] Comment on above: Result Comment: Unab le to calculate result since non-numeric result obtained for component test. Performed By: #### LEANN PATRICKC #### [facility] [address] [place] [address] Dr. Manda York CMV AB IGMon 11-18-2021 Cytomegalovirus (CMV) Ab, IgM 43.2 AU/mL Critically high 0.0-29.9 [facility] Comment on above: Result Comment: Nega tive <30.0 Equivocal 30.0 - 34.9 Positive >34.9 A positive result is generally indicative of acute infection, reactivation or persistent IgM production. Performed By: #### S LUIGI MELO #### [facility] [address] [place] [address] Dr. Manda York CMV AB, IGGon 11-18-2021 Cytomegalovirus (CMV) Ab, IgG >10.00 Critically high 0.00-0.59 [facility] Comment on above: Result Comment: Nega tive <0.60 Equivocal 0.60 - 0.69 Positive >0.69 Performed By: #### C MVIGG #### [facility] [address] [place] [address] Dr. Manda York CBC AUTO DIFFon 11-17-2021 BASO # 0.1 103/ul Normal 0.0-0.1 [facility] Comment on above: Performed By: #### C BC #### [facility] [address] [place] [address] Dr. Manda York Basophils/100 WBC (Bld) 0.6 % Normal 0.2-2.0 [facility] Comment on above: Performed By: #### C BC #### [facility] [address] [place] [address] Dr. Manda York EO # 0.2 103/ul Normal 0.0-0.7 [facility] Comment on above: Performed By: #### C BC #### [facility] [address] [place] [address] Dr. Manda York Eosinophils/100 WBC (Bld) 2.3 % Normal 0.9-7.0 [facility] Comment on above: Performed By: #### C BC #### [facility] [address] [place] [address] Dr. Manda York Erythrocyte distribution width (RBC) [Ratio] 14.2 % Normal 11.0-15.0 [facility] Comment on above: Performed By: #### C BC #### [facility] [address] [place] [address] Dr. Manda York Hematocrit (Bld) [Volume fraction] 40.2 % Normal 36.0-48.0 [facility] Comment on above: Performed By: #### C BC #### [facility] [address] [place] [address] Dr. Manda York Hemoglobin (Bld) [Mass/Vol] 12.8 g/dL Normal 12.0-16.0 [facility] Comment on above: Performed By: #### C BC #### [facility] [address] [place] [address] Dr. Manda York IG # 0.02 10e3/ul Normal 0.00-0.03 [facility] Comment on above: Performed By: #### C BC #### [facility] [address] [place] [address] Dr. Manda York IG % 0.2 % Normal 0.0-0.5 [facility] Comment on above: Performed By: #### C BC #### [facility] [address] [place] [address] Dr. Manda York LYMPH # 2.5 103/ul Normal 1.2-3.8 [facility] Comment on above: Performed By: #### C BC #### [facility] [address] [place] [address] Dr. Manda York Lymphocytes/100 WBC (Bld) 24.9 % Normal 20.5-60.0 [facility] Comment on above: Performed By: #### C BC #### [facility] [address] [place] [address] Dr. Manda York MANUAL DIFF REQ NO Normal [facility] Comment on above: Performed By: #### C BC #### [facility] [address] [place] [address] Dr. Manda York MCH (RBC) [Entitic mass] 27.9 pg Normal 26.7-34.0 [facility] Comment on above: Performed By: #### C BC #### [facility] [address] [place] [address] Dr. Manda York MCHC (RBC) [Mass/Vol] 31.8 g/dL Normal 29.9-35.2 [facility] Comment on above: Performed By: #### C BC #### [facility] [address] [address] [address] Manda York MCV (RBC) [Entitic vol] 87.6 fL Normal 81.0-99.0 [facility] Comment on above: Performed By: #### C BC #### [facility] [address] [address] [address] Manda York MONO # 0.6 103/ul Normal 0.3-0.8 [facility] Comment on above: Performed By: #### C BC #### [facility] [address] [place] [address] Dr. Manda York Monocytes/100 WBC (Bld) 6.3 % Normal 1.7-12.0 [facility] Comment on above: Performed By: #### C BC #### [facility] [address] [place] [address] Dr. Manda York NEUT # 6.5 103/ul Normal 1.4-6.5 [facility] Comment on above: Performed By: #### C BC #### [facility] [address] [place] [address] Dr. Manda York Neutrophils/100 WBC (Bld) 65.7 % Normal 43.0-75.0 [facility] Comment on above: Performed By: #### C BC #### [facility] [address] [place] [address] Dr. Manda York Platelet mean volume (Bld) [Entitic vol] 10.1 fL Normal 9.5-13.5 [facility] Comment on above: Performed By: #### C BC #### [facility] [address] [place] [address] Dr. Manda York PLT 304 103/ul Normal 150-450 [facility] Comment on above: Performed By: #### C BC #### [facility] [address] [place] [address] Dr. Manda York RBC 4.59 106/ul Normal 4.20-5.40 [facility] Comment on above: Performed By: #### C BC #### [facility] [address] [place] [address] Dr. Manda York WBC 9.9 103/ul Normal 4.0-11.0 [facility] Comment on above: Performed By: #### C BC #### [facility] [address] [place] [address] Dr. Manda York PROF 14(COMP METB)on 022 Albumin [Mass/Vol] 3.7 g/dL Normal 3.4-5.0 [facility] Comment on above: Performed By: #### C BC #### [facility] [address] [place] [address] Dr. Manda York Albumin/Globulin [Mass ratio] 1.0 {ratio} Normal [facility] Comment on above: Performed By: #### C BC #### [facility] [address] [place] [address] Dr. Manda York ALP [Catalytic activity/Vol] 65 U/L Normal 46-116 [facility] Comment on above: Performed By: #### C BC #### [facility] [address] [place] [address] Dr. Manda York ALT [Catalytic activity/Vol] 35 U/L Normal 14-59 [facility] Comment on above: Performed By: #### C BC #### [facility] [address] [place] [address] Dr. Manda York Anion gap [Moles/Vol] 13.0 mmol/L Normal [facility] Comment on above: Performed By: #### C BC #### [facility] [address] [place] [address] Dr. Manda York AST [Catalytic activity/Vol] 12 U/L Critically low 15-37 [facility] Comment on above: Performed By: #### C BC #### [facility] [address] [place] [address] Dr. Manda York Bilirubin [Mass/Vol] 0.2 mg/dL Normal 0.2-1.0 [facility] Comment on above: Performed By: #### C BC #### [facility] [address] [place] [address] Dr. Manda York Calcium [Mass/Vol] 8.7 mg/dL Normal 8.5-10.1 [facility] Comment on above: Performed By: #### C BC #### [facility] [address] [place] [address] Dr. Manda York Chloride [Moles/Vol] 104 mmol/L Normal 98-107 [facility] Comment on above: Performed By: #### C BC #### [facility] [address] [place] [address] Dr. Manda York CO2 [Moles/Vol] 24.9 mmol/L Normal 21.0-32.0 [facility] Comment on above: Performed By: #### C BC #### [facility] [address] [place] [address] Dr. Manda York Creatinine [Mass/Vol] 0.77 mg/dL Normal 0.55-1.02 [facility] Comment on above: Performed By: #### C BC #### [facility] [address] [place] [address] Dr. Manda York EGFR-AF ERITREAN >=60 Normal >=60 [facility] Comment on above: Performed By: #### C BC #### [facility] [address] [place] [address] Dr. Manda York EGFR-NON AF ERITREAN >=60 Normal >=60 [facility] Comment on above: Performed By: #### C BC #### [facility] [address] [place] [address] Dr. Manda York Globulin (S) [Mass/Vol] 3.8 g/dL Normal [facility] Comment on above: Performed By: #### C BC #### [facility] [address] [place] [address] Dr. Manda York Glucose [Mass/Vol] 110 mg/dL Critically high 74-106 [facility] Comment on above: Performed By: #### C BC #### [facility] [address] [place] [address] Dr. Manda Yokr Potassium [Moles/Vol] 3.9 mmol/L Normal 3.5-5.1 [facility] Comment on above: Performed By: #### C BC #### [facility] [address] [place] [address] Dr. Manda York Protein [Mass/Vol] 7.5 g/dL Normal 6.4-8.2 [facility] Comment on above: Performed By: #### C BC #### [facility] [address] [place] [address] Dr. Manda York Sodium [Moles/Vol] 138 mmol/L Normal 136-145 [facility] Comment on above: Performed By: #### C BC #### [facility] [address] [place] [address] Dr. Manda York Urea nitrogen [Mass/Vol] 17.0 mg/dL Normal 7.0-18.0 [facility] Comment on above: Performed By: #### C BC #### [facility] [address] [place] [address] Dr. Manda York Urea nitrogen/Creatinine [Mass ratio] 22.1 mg/mg Normal [facility] Comment on above: Performed By: #### C BC #### [facility] [address] [place] [address] Dr. Manda York SED RATE [facility] 2021 SED RATE 45 mm/hr Critically high <=20 [facility] Comment on above: Performed By: #### F T4 #### [facility] [address] [place] [address] Dr. Manda York CHRISTIAN EIA W/REFLEX 5 BIOMARKER Son 10-06-2021 CHRISTIAN Direct Positive Abnormal Negative [facility] Comment on above: Performed By: #### C BC #### [facility] [address] [place] [address] Dr. Manda York Anti-DNA (DS) Ab Qn 10 IU/mL Critically high 0-9 [facility] Comment on above: Result Comment: Nega tive <5 Equivocal 5 - 9 Positive >9 Performed By: #### C BC #### [facility] [address] [place] [address] Dr. Manda York ELECTRIC SHOVEL OPERATOR Antibodies <0.2 Normal 0.0-0.9 [facility] Comment on above: Performed By: #### C BC #### [facility] [address], [place] [address] Dr. Manda York SEE BELOW: Comment Normal [facility] Comment on above: Result Comment: [...] Sm (anti-Schneider) SLE 15 - 30% --------- ELECTRIC SHOVEL OPERATOR Mixed Connective Tissue Disease 95% (U1 nRNP, SLE 30 - 50% anti-ribonucleoprotein) Polymyositis and/or Dermatomyositis 20% --------- Scl-70 (antiDNA Scleroderma (diffuse) 20 - 35% topoisomerase) Crest 13% --------- Felicita-1 Polymyositis and/or Dermatomyositis 20 - 40% --------- Centromere B Scleroderma - Crest variant 80% Performed By: #### C BC #### [facility] [address] [place] [address] Dr. aMnda York Sjogren's Anti-SS-A <0.2 Normal 0.0-0.9 [facility] Comment on above: Performed By: #### C BC #### [facility] [address] [address] [address] Manda York Sjogren's Anti-SS-B <0.2 Normal 0.0-0.9 [facility] Comment on above: Performed By: #### C BC #### [facility] [address] [place], [place] [address] Dr. Manda York Schneider Antibodies <0.2 Normal 0.0-0.9 [facility] Comment on above: Performed By: #### C BC #### [facility] [address] [place] [address] Dr. Manda York CMV PLASMA PCRon 10-06-2021 CMV Quant DNA PCR (Plasma) Negative Normal Negative [facility] Comment on above: Result Comment: No C MV DNA detected. The quantitative range of this assay is 200 to 1 million IU/mL. Performed By: #### C MVPL #### [facility] [address] [place] [address] Dr. Manda York log10 CMV Qn DNA Pl UPTCAL Normal [facility] Comment on above: Result Comment: Unab le to calculate result since non-numeric result obtained for component test. Performed By: #### C MVPL #### [facility] [address] [place] [address] Dr. Manda York CMV AB IGMon 2021 Cytomegalovirus (CMV) Ab, IgM 35.5 AU/mL Critically high 0.0-29.9 [facility] Comment on above: Result Comment: Nega tive <30.0 Equivocal 30.0 - 34.9 Positive >34.9 A positive result is generally indicative of acute infection, reactivation or persistent IgM production. Performed By: #### S LUIGI MELO #### [facility] [address] [place] [address] Dr. Manda York CMV AB, IGGon 2021 Cytomegalovirus (CMV) Ab, IgG 6.30 U/mL Critically high 0.00-0.59 [facility] Comment on above: Result Comment: Nega tive <0.60 Equivocal 0.60 - 0.69 Positive >0.69 Performed By: #### S LEANN MELOC #### [facility] [address] [place] [address] Dr. Manda York CBC AUTO DIFFon 10-03-2021 BASO # 0.1 103/ul Normal 0.0-0.1 [facility] Comment on above: Performed By: #### C BC #### [facility] [address] [address] [address] Manda York Basophils/100 WBC (Bld) 0.7 % Normal 0.2-2.0 [facility] Comment on above: Performed By: #### C BC #### [facility] [address] [address] [address] Manda York EO # 0.2 103/ul Normal 0.0-0.7 [facility] Comment on above: Performed By: #### C BC #### [facility] [address] [address] [address] Manda York Eosinophils/100 WBC (Bld) 2.0 % Normal 0.9-7.0 [facility] Comment on above: Performed By: #### C BC #### [facility] [address] [place] [address] Dr. Manda York Erythrocyte distribution width (RBC) [Ratio] 14.4 % Normal 11.0-15.0 [facility] Comment on above: Performed By: #### C BC #### [facility] [address] [place] [address] Dr. Manda York Hematocrit (Bld) [Volume fraction] 37.2 % Normal 36.0-48.0 [facility] Comment on above: Performed By: #### C BC #### [facility] [address] [place] [address] Dr. Manda York Hemoglobin (Bld) [Mass/Vol] 12.3 g/dL Normal 12.0-16.0 [facility] Comment on above: Performed By: #### C BC #### [facility] [address] [place] [address] Dr. Manda York IG # 0.02 10e3/ul Normal 0.00-0.03 [facility] Comment on above: Performed By: #### C BC #### [facility] [address] [place] [address] Dr. Manda York IG % 0.2 % Normal 0.0-0.5 [facility] Comment on above: Performed By: #### C BC #### [facility] [address] [place] [address] Dr. Manda York LYMPH # 2.1 103/ul Normal 1.2-3.8 [facility] Comment on above: Performed By: #### C BC #### [facility] [address] [place] [address] Dr. Manda York Lymphocytes/100 WBC (Bld) 26.4 % Normal 20.5-60.0 [facility] Comment on above: Performed By: #### C BC #### [facility] [address] [place] [address] Dr. Manda York MANUAL DIFF REQ NO Normal [facility] Comment on above: Performed By: #### C BC #### [facility] [address] [place] [address] Dr. Manda York MCH (RBC) [Entitic mass] 29.2 pg Normal 26.7-34.0 [facility] Comment on above: Performed By: #### C BC #### [facility] [address] [place] [address] Dr. Manda York MCHC (RBC) [Mass/Vol] 33.1 g/dL Normal 29.9-35.2 [facility] Comment on above: Performed By: #### C BC #### [facility] [address] [place] [address] Dr. Manda York MCV (RBC) [Entitic vol] 88.4 fL Normal 81.0-99.0 [facility] Comment on above: Performed By: #### C BC #### [facility] [address] [place] [address] Dr. Manda York MONO # 0.5 103/ul Normal 0.3-0.8 [facility] Comment on above: Performed By: #### C BC #### [facility] [address] [place] [address] Dr. Manda York Monocytes/100 WBC (Bld) 6.7 % Normal 1.7-12.0 [facility] Comment on above: Performed By: #### C BC #### [facility] [address] [place] [address] Dr. Manda York NEUT # 5.2 103/ul Normal 1.4-6.5 [facility] Comment on above: Performed By: #### C BC #### [facility] [address] [place] [address] Dr. Manad York Neutrophils/100 WBC (Bld) 64.0 % Normal 43.0-75.0 [facility] Comment on above: Performed By: #### C BC #### [facility] [address] [place] [address] Dr. Manda York Platelet mean volume (Bld) [Entitic vol] 10.5 fL Normal 9.5-13.5 [facility] Comment on above: Performed By: #### C BC #### [facility] [address] [place] [address] Dr. Manda York PLT 265 103/ul Normal 150-450 [facility] Comment on above: Performed By: #### C BC #### [facility] [address] [place] [address] Dr. Manda York RBC 4.21 106/ul Normal 4.20-5.40 [facility] Comment on above: Performed By: #### C BC #### [facility] [address] [place] [address] Dr. Manda York WBC 8.1 103/ul Normal 4.0-11.0 [facility] Comment on above: Performed By: #### C BC #### [facility] [address] [place] [address] Dr. Manda York CRPon 10-03-2021 CRP [Mass/Vol] mg/L Normal <=1.0 [facility] Comment on above: Performed By: #### F T4 #### [facility] [address] [place] [address] Dr. Manda York SED RATE DOVERERGREN 2021 SED RATE 34 mm/hr Critically high <=20 [facility] Comment on above: Performed By: #### C BC #### [facility] [address] [place] [address] Dr. aMnda York CHLORIDE (POC)Ordered By: Am eer Kabour on 10-07-2020 Chloride [Moles/Vol] 106 mmol/L 98 - 10 7 mmol/L [employer] Phone: Catheterization and angiogra phy procedure details panelOrdered By: Jaren Holley on 10-07-2020 Cardiac Diagnostic R eport Demographics Patient TERA Torres Date of Study 10/07/2020 Name Date of 1980 Gender Female Age 40 year(s) Race Room [id number]^LEYDI^JAREN Height: 67 inch, 170.18 cm Number Corporate [id number] Weight: 234 pounds, 106.1 kg ID # Patient [id number] BSA: 2.16 m^2 BMI: 36.65 kg/m^2 Acct # MR # [id number] Performing Jaren Holley Physician Referring # Physician [...] Right coronary angiography. Contrast Material: - Isovue 71884 ml Fluoroscopy Time: Diagnostic: 2:12 minutes. Total: [...] assessed as CCS II according to the Syrian clinical classification. Hemodynamics Condition: Baseline Room Air [...] ---------+ + !Aortic (more content not included)... [employer] Work Phone: Jr, pn Incoming C ardio Results From [facility]/Ge - 10/07/2020 10:37 AM EDT Cardiac Diagnostic Report Demographics Patient TERA Torres Date of Study 10/07/2020 Name Date of 1980 Gender Female Age 40 year(s) Race Room 1907907^LEYDI^JAREN Height: 67 inch, 170.18 cm Number Corporate [id number] Weight: 234 pounds, 106.1 kg ID # Patient [id number] BSA: 2.16 m^2 BMI: 36.65 kg/m^2 Acct # MR # [id number] Performing Jaren Holley Physician Referring # Physician [...] Right coronary angiography. Contrast Material: - Isovue 76498 ml Fluoroscopy Time: Diagnostic: 2:12 minutes. Total: [...] assessed as CCS II according to the Syrian clinical classification. Hemodynamics Condition: Baseline Room Air [...] + ---------+ + Shunts Oxygen Values O2 [id number] [employer] Phone: [employer] Phone: [employer] Phone: Creatinine W/GFR Point of Ca reOrdered By: Jaren Holley on 10-07-2020 Creatinine [Mass/Vol] 0.64 mg/dL 0.51 - 1.19 mg/dL [employer] Phone: GFR Non- >60 >60 mL/min [employer] Phone: GFR/1.73 sq M.predicted MDRD (S/P/Bld) [Vol rate/Area] mL/min/{1.73_m2} >60 mL/min [employer] Phone: GFR/1.73 sq M.predicted MDRD (S/P/Bld) [Vol rate/Area] [employer] Phone: Comment on above: Average GFR for 40-4 9 years old: 99 mL/min/1.73sq m Chronic Kidney Disease: <60 mL/min/1.73sq m Kidney failure: <15 mL/min/1.73sq m eGFR calculated using average adult body mass. Additional eGFR calculator available at: http://www.[employer]/multiple_crcl_2012.htm Hemoglobin and hematocrit, b loodOrdered By: Jaren Holley on 10-07-2020 Hematocrit (Bld) [Volume fraction] 41 % 36 - 46 % [employer] Phone: Hemoglobin (Bld) [Mass/Vol] 14.0 g/dL 12.0 - 16.0 g/dL [employer] Phone: No Panel InformationOrdered By: Jaren Holley on 10-07-2020 [employer] Phone: POCT GlucoseOrdered By: Anu Holley on 10-07-2020 Glucose [Mass/Vol] 98 mg/dL 74 - 100 mg/dL [employer] Phone: POCT urine pregnancyOrdered By: Jaren Holley on 10-07-2020 Beta HCG ( test) Ql (U) Negative NEGATIVE [employer] Phone: Comment on above: Specimens with hCG l evels near the threshold of the test (25 mIU/mL) may give a negative or indeterminate result. In such cases, another test should be performed with a new specimen in 48-72 hours. If early is suspected clinically in this setting, correlation with quantitative serum b-hCG level is suggested. [employer] Phone: POTASSIUM (POC)Ordered By: Al Holley on 10-07-2020 Potassium [Moles/Vol] 3.8 mmol/L 3.5 - 4.5 mmol/L [employer] Phone: Platelet Counton 10-07-2020 Platelets (Bld) [#/Vol] 299 10*3/uL Normal 138-453 [facility] Comment on above: Performed By: #### P LT #### [employer] [address] [place] [id number] Land Inspector: Rick Serrano MD Platelet countOrdered By: Jae Holley on 10-07-2020 Platelets (Bld) [#/Vol] 299 10*3/uL [employer] Phone: [employer] Phone: SODIUM (POC)Ordered By: Anu Holley on 10-07-2020 Sodium [Moles/Vol] 141 mmol/L 138 - 146 mmol/L [employer] Phone: Coding Summary.on 01-12-2019 Coding Summary. CODING DATE: [address] [facility] STATUS: Home (Routine DC) PAYOR: Medicaid [...] mass index (BMI) 34.0-34.9, adult Z79.899 Other fdc (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 However, the narrative phrase printed from the coding software may appear abbreviated, or result in slightly different terminology. Coded By: Luz Judd Date Saved: 01/12/2019 10:25 am [facility] Coding Summary. CODING DATE: 019 FINAL [facility] DSC STATUS: Home (Routine DC) PAYOR: [...] mass index (BMI) 34.0-34.9, adult Z79.899 Other 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 manager (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 However, the narrative phrase printed from the coding software may appear abbreviated, or result in slightly different terminology. Revised Coded By: Luz Judd Revised Date Saved: 01/12/2019 10:25 am [facility] XR Chest 2 Viewson 9 XR [...] Valenzuela M.D. Transcribed by: BILL Technologist: ZOILA [facility] Auto Diffon 01-11-2019 Basophils/100 WBC (Bld) 0.8 % Normal 0.0-2.0 [facility] Comment on above: Order Comment: Order Added by Discern Expert. Performed By: #### 1 [id number], 4410114, 5796303, 2739031, 88980948, 7742955, 0062281, 1266734, 6185386, 48220017, 3727656 #### [facility] [address] [place] [address] Basophils/Leukocytes Auto (Bld) [Pure # fraction] 0.1 E9/L Normal 0.0-0.2 [facility] Comment on above: Order Comment: Order Added by Discern Expert. Performed By: #### 1 7940871, 6147988, 1967912, 4510570, 57853890, 4917228, 1513928, 6019258, 9365898, 43017623, 9674405 #### [facility] [address] [place] [address] Eosinophils/100 WBC (Bld) 1.9 % Normal 0.0-8.0 [facility] Comment on above: Order Comment: Order Added by Discern Expert. Performed By: #### 1 6077992, 3705556, 2277379, 8923534, 87172925, 7206234, 1898525, 8604434, 9567994, 03489786, 5028341 #### [facility] [address] [place] [address] Eosinophils/Leukocyt es Auto (Bld) [Pure # fraction] 0.1 E9/L Normal 0.0-0.5 [facility] Comment on above: Order Comment: Order Added by Discern Expert. Performed By: #### 1 6167288, 1435346, 4147654, 2492296, 33674649, 5873214, 3652743, 0641818, 2425430, 23354928, 2260758 #### [facility] [address] [place] [address] Lymphocytes/100 WBC (Bld) 28.0 % Normal 14.0-50.0 [facility] Comment on above: Order Comment: Order Added by Discern Expert. Performed By: #### 1 0411853, 0190832, 7679861, 2494879, 14468680, 2335694, 8015504, 6786436, 7494775, 07399214, 0055398 #### [facility] [address] [place] [address] Lymphocytes/Leukocyt es Auto (Bld) [Pure # fraction] 2.2 E9/L Normal 1.0-4.0 [facility] Comment on above: Order Comment: Order Added by Discern Expert. Performed By: #### 1 3709527, 2294934, 8119212, 1295503, 46590803, 8198815, 9021658, 1772041, 2635118, 47754236, 2604957 #### [facility] [address] [place] [address] Monocytes/100 WBC (Bld) 7.0 % Normal 4.0-14.0 [facility] Comment on above: Order Comment: Order Added by Discern Expert. Performed By: #### 1 1655897, 8100379, 2317042, 1192663, 17682533, 6288197, 1551612, 3112321, 1715029, 19604170, 9576539 #### [facility] [address] [place] [address] Monocytes/Leukocytes Auto (Bld) [Pure # fraction] 0.6 E9/L Normal 0.2-1.0 [facility] Comment on above: Order Comment: Order Added by Discern Expert. Performed By: #### 1 2420107, 0304001, 8602151, 5591605, 68479694, 6235674, 6426833, 8293253, 9476783, 03478737, 5174085 #### [facility] [address] [place] [address] Neutrophils/100 WBC (Bld) 62.3 % Normal 36.0-75.0 [facility] Comment on above: Order Comment: Order Added by Discern Expert. Performed By: #### 1 8003815, 0496027, 9908863, 7128770, 82335355, 9503915, 4800650, 7895859, 2472160, 27157531, 9339701 #### [facility] [address] [place] [address] Neutrophils/Leukocyt es Auto (Bld) [Pure # fraction] 4.9 E9/L Normal 2.0-7.5 [facility] Comment on above: Order Comment: Order Added by Discern Expert. Performed By: #### 1 6951939, 4730671, 4852976, 3128125, 51942989, 9637693, 0441533, 6532673, 8927820, 73098025, 2702544 #### [facility] [address] [place] [address] BMPon 01-11-2019 Creatinine [Mass/Vol] 0.7 mg/dL Normal 0.5-1.3 [facility] Comment on above: Performed By: #### 1 5670998, 4153253, 2365930, 5964359, 78933546, 6598285, 7783119, 4983032, 9186998, 58762602, 8737732 #### [facility] [address] [place] [address] Urea nitrogen [Mass/Vol] 11 mg/dL Normal 5-21 [facility] Comment on above: Performed By: #### 1 4072070, 5323704, 3964807, 3920367, 68036025, 5959672, 2493831, 0460104, 1058303, 20042112, 4699220 #### [facility] [address] [place] [address] Urea nitrogen/Creatinine [Mass ratio] 16 No Units Normal 10-20 [facility] Comment on above: Performed By: #### 1 0007885, 5384373, 2799678, 3338680, 35281561, 1598685, 9122727, 3343175, 0095821, 56717249, 0658474 #### [facility] [address] [place] [address] Anion gap [Moles/Vol] 14 mmol/L Normal 6-16 [facility] Comment on above: Performed By: #### 1 2748158, 4885287, 3182859, 8091876, 10939180, 9565230, 4707622, 3127160, 9419478, 14522894, 7564851 #### [facility] [address] [place] [address] Calcium [Mass/Vol] 8.9 mg/dL Normal 8.9-11.1 [facility] Comment on above: Performed By: #### 1 7191894, 4485499, 3024225, 4896311, 95095345, 8370849, 2481814, 9669634, 9244538, 39717761, 2361541 #### [facility] [address] [place] [address] Chloride [Moles/Vol] 107 mmol/L Normal 101-111 [facility] Comment on above: Performed By: #### 1 5939819, 8747526, 6120358, 0592334, 41854895, 0056387, 4795490, 6999390, 5356867, 15772662, 8647798 #### [facility] [address] [place] [address] CO2 [Moles/Vol] 22 mmol/L Normal 21-31 [facility] Comment on above: Performed By: #### 1 0087618, 0267145, 9446901, 5029508, 71889844, 2227199, 9794015, 8580423, 3315937, 66579101, 3635319 #### [facility] [address] [place] [address] Glucose [Mass/Vol] 122 mg/dL Normal 55-199 [facility] Comment on above: Result Comment: If t his glucose result represents a fasting glucose, interpretation should refer to the following reference range: 55-99 mg/dL Performed By: #### 1 9328453, 8999874, 1876237, 2072228, 65489898, 5634541, 5129696, 6095300, 9913602, 10386466, 1381085 #### [facility] [address] [place] [address] Potassium [Moles/Vol] 3.8 mmol/L Normal 3.5-5.3 [facility] Comment on above: Performed By: #### 1 3276848, 6047238, 9859994, 8495591, 61056312, 0240458, 1340182, 5325318, 9824572, 08148425, 2686117 #### [facility] [address] [place] [address] Sodium [Moles/Vol] 139 mmol/L Normal 135-145 [facility] Comment on above: Performed By: #### 1 5747958, 4448378, 4136598, 3984940, 64720593, 9918113, 6274407, 4636446, 6901261, 89143372, 8439896 #### [facility] [address] [place] [address] CBC w/ Auto Diffon 9 Erythrocyte distribution width (RBC) [Ratio] 14.0 % Normal 10.9-14.2 [facility] Comment on above: Performed By: #### 1 2258956, 3000804, 1413187, 7111258, 05038250, 1762441, 7982667, 9278021, 4320225, 17948259, 9070618 #### [facility] [address] [place] [address] Hematocrit (Bld) [Volume fraction] 39.9 % Normal 34.0-46.0 [facility] Comment on above: Performed By: #### 1 5249566, 4858131, 1971678, 9777387, 61423336, 6047952, 2077271, 2183682, 9765013, 86967966, 0898255 #### [facility] [address] [place] [address] Hemoglobin (Bld) [Mass/Vol] 13.5 g/dL Normal 12.0-16.0 [facility] Comment on above: Performed By: #### 1 3757726, 6119007, 1345991, 4391253, 55668863, 4026171, 0087175, 1240365, 1768903, 55758280, 8509371 #### [facility] [address] [place] [address] MCH (RBC) [Entitic mass] 29.4 pg Normal 27.0-34.0 [facility] Comment on above: Performed By: #### 1 0133111, 3107769, 8904348, 0546595, 46128291, 7198096, 3208526, 3528822, 7830638, 63018676, 2028180 #### [facility] [address] [place] [address] MCHC (RBC) [Mass/Vol] 33.7 g/dL Normal 33.3-35.7 [facility] Comment on above: Performed By: #### 1 7253731, 1047244, 4101000, 8880678, 24151486, 1199053, 5188150, 5251793, 5308226, 11235553, 0425773 #### [facility] [address] [place] [address] MCV (RBC) [Entitic vol] 87.4 fL Normal 80.0-100.0 [facility] Comment on above: Performed By: #### 1 7641583, 5124874, 8861315, 6048697, 19124844, 5659561, 5237959, 7445083, 0914072, 50909094, 4555312 #### [facility] [address] [place] [address] Platelet mean volume (Bld) [Entitic vol] 8.5 fL Normal 6.4-10.8 [facility] Comment on above: Performed By: #### 1 3567752, 4606410, 7410850, 2800335, 71048352, 8832364, 9266972, 0122129, 3621710, 52591129, 0601277 #### [facility] [address] [place] [address] Platelets (Bld) [#/Vol] 244.0 E9/L Normal 150.0-500.0 [facility] Comment on above: Performed By: #### 1 2883853, 3860404, 3549824, 9876172, 77333416, 2447290, 5750458, 3830679, 1610395, 53390254, 9397735 #### [facility] [address] [place] [address] RBC (Bld) [#/Vol] 4.6 E12/L Normal 4.3-5.9 [facility] Comment on above: Performed By: #### 1 4190028, 3970103, 2623727, 5987423, 50687880, 9854654, 3841441, 1390032, 2656131, 72895180, 5530595 #### [facility] [address] [place] [address] WBC corrected for nucl RBC Auto (Bld) [#/Vol] 7.9 E9/L Normal 4.0-11.0 [facility] Comment on above: Performed By: #### 1 9879008, 2343502, 2295012, 3562489, 64164796, 9338348, 8417966, 7777388, 8958557, 80189001, 5777577 #### [facility] [address] [place] [address] D-Dimeron 01-11-2019 Fibrin D-dimer FEU (PPP) [Mass/Vol] 265 ng/mL Normal 215-500 [facility] Comment on above: Result Comment: This D-Dimer [...] infections Liver cirrhosis Performed By: #### 1 6199226, 6334318, 1099778, 7658544, 74172925, 8843439, 2110498, 1681836, 8657900, 95179183, 4362389 #### [facility] [address] [place] [address] ED Clinical Summaryon 2018 ED Clinical Summary (Inserted Image. Melissa ble to display) [address] [address] ED Clinical Summary Person Information Name: JONES H[place]Y [place] Age: 38 Years : 1980 12:00 AM Sex: Female Language: Finnish PCP: Charles Mitchell DO Marital Status: Single Phone: [phone] Visit Id: Visit Reason: Chest pain; CHEST [...] 01/11/2019 6:42 PM 01/11/2019 6:42 PM ADDRESS: [address] [place] [phone] PHYS DOC NOTES: MEDICAL INFORMATION: Prescriptions Given: PATIENT EDUCATION INFORMATION: Instructions: Smoking Cessation; Chest Pain (Nonspecific) Follow up: With: Address: When: [address] [address] Business (1) Within 2 to 3 days Comments: Return to ED if symptoms worsen DIAGNOSIS: 1:Chest pain Normal [facility] ED Note-Physicianon 01-12-20 19 ED Note-Physician Basic [...] Charles Mitchell Within 2 to [address] [place], [place] [phone]- Business (1) Additional Instructions: Return to ED [...] Lymph Auto: 28 % (01/11/19 16:46:00 EDT) [place] Auto: 7 % (01/11/19 16:46:00 EDT) Eos Auto: 1.9 % (01/11/19 16:46:00 EDT) Basophil Auto: 0.8 % (01/11/19 16:46:00 EDT) Neutro Absolute: 4.9 E9/L (01/11/19 16:46:00 EDT) Lymph Absolute: 2.2 E9/L (01/11/19 16:46:00 EDT) [place] Absolute: 0.6 E9/L (01/11/19 16:46:00 EDT) Eos [...] Results EC01/11/19: SINUS RHYTHM RATE 84, NORMAL VA AND QRS, NO ST ELEVATION OR DEPRSSION, NORMAL AXIS, NORMAL QTC NORMAL ECG Signed By: Orin Browne DO 01/11/2019 15:54:18 Normal [facility] Comment on above: Result Comment: Elec tronically [...] and skin patches. Some may be available ldot-miz-ghzlsxq and others require a prescription. ? Antidepressant [...] Document Reviewed: 08/18/2012 ExitCare? Patient Information ?2014 [facility] [employer] [facility]. This information is not intended to [...] Document Reviewed: 12/13/2008 ExitCare? Patient Information ?2015 [employer]. This information is not intended to replace advice given to you by your health care provider. Make sure you discuss any questions you have with your health care provider. Normal [facility] ED Patient Summaryon 019 ED Patient Summary (Inserted Image. Melissa ble to display) [place] [id number] Patient Discharge Instructions Person Information Name: JONES HALEY Age: 38 Years Arrival Date: 01/11/2019 3:44 PM Discharge Diagnosis: 1:Chest pain Primary Care Physician: Charles Mitchell DO Provider Information Primary Provider: Orin Browne DO [employer] Content Specialist:None The exam and treatment you received in the Emergency Department were for an urgent problem and are not intended as complete care. It is important that you follow up with a doctor, nurse practitioner, or physician?s speech correction assistant for ongoing care. If your symptoms [...] Follow-up Instructions: With: Address: When: Charles Mitchell [address] [place] [address] Business (1) Within 2 to 3 days [...] opioids can be used to help relieve jyjoiiki-ws-lgcozl pain and are often prescribed following a [...] be struggling with addiction, tell your health pet caretaker and ask for guidance or call SAMHSA?S National Helpline at 4-700-010-NJWQ. r Source: US Department of Health and Human Services/Center for Disease Control & Prevention [facility] Medications Given: Medication Dose Route No medications found. Medication Information: Medications to Continue with No Changes Other Medications metformin (metformin 500 mg ER Tab) 250 Milligram By Mouth 2 times a day. Comment: Pharmacy Information: Thank you for choosing [facility] Patient Education Materials: Smoking Cessation Quitting [...] and skin patches. Some may be available yfmq-rok-knjwffe and others require a prescription. ? Antidepressant [...] Document Reviewed: 08/18/2012 ExitCare? Patient Information ?2014 [employer]. This information is not intended to replace [...] Document Reviewed: 12/13/2008 ExitCare? Patient Information ?2014 [employer]. This information is not intended to replace advice given to you by your health care provider. Make sure you discuss any questions you have with your health care provider. TERA Dorantes NICOLE B , have received the following patient education materials/instructions and have verbalized understanding: Patient Education Materials: Smoking Cessation; Chest Pain (Nonspecific) Follow-up Instructions: With: Address: When: [place] [phone] [facility] (1) Within 2 to 3 days Comments: Return to ED if symptoms worsen Prescriptions: Patient Signature Date Clinician/Nurse Signature Date 01/11/19 18:42:28 Normal [facility] Progress Note-Nurseon 2018 Progress Note-Nurse Pt explained dischar ge instructions and voiced understanding. Pt sts she will follow up with her PCP and denies any furthe questions at this time. Normal [facility] Troponin 0 Hr.on 01-11-2019 Troponin I.cardiac [Mass/Vol] ng/mL Normal <=0.03 [facility] Comment on above: Result Comment: New Troponin Assay 10/05/13 [place] Cutoff value > or = 0.03 ng/mL in conjunction with clinical conditions of myocardial infarction. (www.escardio.org/guidelines) Performed By: #### 1 [id number], 2165282, 0298674, 8061407, 59658204, 5440409, 7741564, 2139129, 6592346, 41682821, 6389031 #### [facility] Laboratory [address] [place] [address] eGFRon 01-11-2019 GFR/1.73 sq M predicted among blacks MDRD (S/P/Bld) [Vol rate/Area] mL/min/{1.73_m2} Normal >=59 [facility] Comment on above: Order Comment: Order added by Discern Expert. Result Comment: eGFR is race adjusted. AA=. Performed By: #### 1 2683104, 0630544, 3836934, 0361441, 32046804, 3037901, 6059813, 8185020, 2354727, 65156019, 4710939 #### [facility] Laboratory [address] [place] [address] GFR/1.73 sq M predicted among non-blacks MDRD (S/P/Bld) [Vol rate/Area] mL/min/{1.73_m2} Normal >=59 [facility] Comment on above: Order Comment: Order added by Discern Expert. Result Comment: [employer] anthony kidney disease could be indicated at eGFR's of less than 60 mL/min/1.73m2. Kidney failure is indicated at less than 15 mL/min/1.73m2. Performed By: #### 1 3054177, 2226101, 3953306, 9785599, 86087738, 5715061, 4096199, 5816006, 1699359, 98153194, 8559936 #### [facility] Laboratory [address] [place] [address] SPINE, LUMBOSACRAL CMPLT(TOOTIE DING)on 12-05-2018 SPINE, LUMBOSACRAL CMPLT(BENDING) Patient Name: JONES HALEY STUDY: SPINE, LUMBOSACRAL; CMPLT(BENDING); 12/05/2018 1:47 pm INDICATION: LUMBAR XR. COMPARISON: None. ACCESSION NUMBER(S): [id number] ORDERING CLINICIAN: JUAN LUIS RICHARDSON FINDINGS: No lumbar spine fracture. Scattered small endplate osteophytes. Vertebral body and disc space heights are are maintained. 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 No spondylolisthesis. No instability on flexion or extension. IMPRESSION: Degenerative changes of the lumbar spine without instability. Electronically signed by: EARNESTINE MANUEL MD [facility] XR chest 2V*on 09-17-2018 XR chest 2V* [facility] Main [place] [address] [place] [address] XRay Report Signed Patient: Jones Haley MR#: [id number] : 1980 Acct:[id number] Age/Sex: 37 / F ADM Date: 09/17/18 Loc: XDUCLY Room: Type: [facility] Attending Dr: Bettina COREAS Ordering Provider: Bettina [...] Simin Nelson M.D.09/17/2018 2:04 PM Dictation Location: [facility] Transcribed By: [facility] 09/17/18 1404 Dictated By: Simin Nelson MD 09/17/18 1403 Signed By: 09/17/18 1404 [facility] Coding Summary.on 09-15-2018 Coding Summary. CODING DATE: [address] [facility] STATUS: Home (Routine DC) PAYOR: Medicaid [...] F17.210 Nicotine dependence, cigarettes, uncomplicated Z79.899 Other fdc (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 However, the narrative phrase printed from the coding software may appear abbreviated, or result in slightly different terminology. Coded By: Luz Judd Date Saved: 09/15/2018 07:15 am Normal [facility] Auto Diffon 09-14-2018 Basophils/100 WBC (Bld) 0.6 % Normal 0.0-2.0 [facility] Comment on above: Order Comment: Order Added by Discern Expert. Performed By: #### 1 5135839, 0500937, 4204044, 2651305, 70402590, 7256635, 8160382, 0937019, 0759603, 95313848, 7902684 #### [facility] Laboratory [address] [place] [address] Basophils/Leukocytes Auto (Bld) [Pure # fraction] 0.1 E9/L Normal 0.0-0.2 [facility] Comment on above: Order Comment: Order Added by Discern Expert. Performed By: #### 1 7889958, 8857795, 7248486, 0238083, 04797404, 3325082, 0887754, 9990689, 1461843, 84242092, 9852456 #### [facility] Laboratory [address] [place] [address] Eosinophils/100 WBC (Bld) 2.2 % Normal 0.0-8.0 [facility] Comment on above: Order Comment: Order Added by Discern Expert. Performed By: #### 1 3983028, 8967908, 4420289, 7598844, 27119321, 1246894, 0299790, 5294037, 5486364, 01320127, 1279654 #### [facility] Laboratory [address] [place] [address] Eosinophils/Leukocyt es Auto (Bld) [Pure # fraction] 0.2 E9/L Normal 0.0-0.5 [facility] Comment on above: Order Comment: Order Added by Discern Expert. Performed By: #### 1 3496608, 9107025, 7832006, 2252892, 94948881, 2133148, 5880174, 7962760, 2821740, 59230451, 2906893 #### [facility] Laboratory [address] [place] [address] Lymphocytes/100 WBC (Bld) 30.6 % Normal 14.0-50.0 [facility] Comment on above: Order Comment: Order Added by Discern Expert. Performed By: #### 1 5679152, 1211521, 8452914, 0273538, 54629798, 9260978, 3255007, 1622305, 3382613, 88196269, 5930628 #### [facility] Laboratory [address] [place] [address] Lymphocytes/Leukocyt es Auto (Bld) [Pure # fraction] 3.0 E9/L Normal 1.0-4.0 [facility] Comment on above: Order Comment: Order Added by Discern Expert. Performed By: #### 1 0186377, 5214137, 7890515, 9250291, 76330769, 3463260, 6617476, 9158630, 0741727, 70818930, 9565522 #### [facility] Laboratory [address] [place] [address] Monocytes/100 WBC (Bld) 7.2 % Normal 4.0-14.0 [facility] Comment on above: Order Comment: Order Added by Discern Expert. Performed By: #### 1 7264505, 3736958, 4331341, 6137695, 04816473, 4398109, 4189305, 7889498, 6906785, 02246200, 9715614 #### [facility] Laboratory [address] [place] [address] Monocytes/Leukocytes Auto (Bld) [Pure # fraction] 0.7 E9/L Normal 0.2-1.0 [facility] Comment on above: Order Comment: Order Added by Discern Expert. Performed By: #### 1 8284725, 9181919, 1381871, 2312099, 17303586, 0180726, 7908694, 6623259, 2433010, 68580490, 8248235 #### [facility] Laboratory [address] [place] [address] Neutrophils/100 WBC (Bld) 59.4 % Normal 36.0-75.0 [facility] Comment on above: Order Comment: Order Added by Discern Expert. Performed By: #### 1 4834551, 9020967, 5118013, 9908818, 08985497, 4176093, 2548556, 8920152, 8910818, 08297777, 4923925 #### [facility] Laboratory [address] [place] [address] Neutrophils/Leukocyt es Auto (Bld) [Pure # fraction] 5.9 E9/L Normal 2.0-7.5 [facility] Comment on above: Order Comment: Order Added by Discern Expert. Performed By: #### 1 3141005, 1648088, 5053076, 8404611, 06518090, 9362813, 1819250, 5279589, 4076130, 26760713, 8892196 #### [facility] Laboratory [address] [place] [address] BMPon 09-14-2018 Creatinine [Mass/Vol] 0.6 mg/dL Normal 0.5-1.3 [facility] Comment on above: Performed By: #### 1 7364756, 8514536, 2715839, 3220796, 36245220, 4590734, 5969405, 9722244, 4571756, 00364870, 2943283 #### [facility] Laboratory [address] [place] [address] Urea nitrogen [Mass/Vol] 15 mg/dL Normal 5-21 [facility] Comment on above: Performed By: #### 1 3728937, 7206183, 2816459, 3313148, 50572286, 5218579, 7161747, 5720672, 6281277, 35902887, 7242306 #### [facility] Laboratory [address] [place] [address] Urea nitrogen/Creatinine [Mass ratio] 25 No Units High 10-20 [facility] Comment on above: Performed By: #### 1 0451366, 3353639, 3028688, 8682124, 26231622, 4391326, 4388729, 0096965, 7171573, 81752359, 5974777 #### [facility] Laboratory [address] [place] [address] Anion gap [Moles/Vol] 13 mmol/L Normal 6-16 [facility] Comment on above: Performed By: #### 1 8181682, 4011432, 9938325, 4699417, 65376407, 9767388, 6662735, 0762926, 8031565, 80589941, 8795038 #### [facility] Laboratory [address] [place] [address] Calcium [Mass/Vol] 9.5 mg/dL Normal 8.9-11.1 [facility] Comment on above: Performed By: #### 1 1506448, 4762449, 1489679, 4673831, 50113406, 6148954, 8958499, 7821571, 4086252, 80387426, 4531089 #### [facility] Laboratory [address] [place] [address] Chloride [Moles/Vol] 103 mmol/L Normal 101-111 [facility] Comment on above: Performed By: #### 1 2972370, 9508706, 0825836, 1148968, 36101257, 6598665, 0480036, 9273815, 9766753, 52678069, 9587636 #### [facility] Laboratory [address] [place] [address] CO2 [Moles/Vol] 24 mmol/L Normal 21-31 [facility] Comment on above: Performed By: #### 1 0424813, 9046044, 2089251, 7422096, 03262710, 2391814, 0308889, 8732091, 5897546, 56183870, 9008255 #### [facility] Laboratory [address] [place] [address] Glucose [Mass/Vol] 102 mg/dL Normal 55-199 [facility] Comment on above: Result Comment: If t his glucose result represents a fasting glucose, interpretation should refer to the following reference range: 55-99 mg/dL Performed By: #### 1 9944013, 2255932, 7335601, 4209321, 36047710, 1670369, 0732745, 1854600, 5931539, 01186185, 5034223 #### [facility] Laboratory [address] [place] [address] Potassium [Moles/Vol] 3.6 mmol/L Normal 3.5-5.3 [facility] Comment on above: Performed By: #### 1 3875800, 2545734, 1223639, 7706503, 98393731, 7233605, 0079672, 6340300, 4773262, 17205700, 8451034 #### [facility] Laboratory [address] [place] [address] Sodium [Moles/Vol] 136 mmol/L Normal 135-145 [facility] Comment on above: Performed By: #### 1 2793359, 8355350, 2516999, 1015342, 38485584, 6088997, 2697938, 4471732, 8978500, 48776491, 6312898 #### [facility] Laboratory [address] [place] [address] CBC w/ Auto Diffon Erythrocyte distribution width (RBC) [Ratio] 14.2 % Normal 10.9-14.2 [facility] Comment on above: Performed By: #### 1 7757982, 2623388, 4080650, 5029533, 13935435, 8052247, 7086156, 4578572, 6514850, 61326941, 0155090 #### [facility] Laboratory [address] [place] [address] Hematocrit (Bld) [Volume fraction] 39.4 % Normal 34.0-46.0 [facility] Comment on above: Performed By: #### 1 9891226, 7724375, 0769239, 7956736, 80939087, 8546104, 5185560, 2878328, 2112533, 27563136, 6137020 #### [facility] Laboratory [address] [place] [address] Hemoglobin (Bld) [Mass/Vol] 13.3 g/dL Normal 12.0-16.0 [facility] Comment on above: Performed By: #### 1 5743575, 4622302, 6689658, 7828419, 41660721, 6633300, 5213467, 7366948, 6258817, 68231533, 9986562 #### [facility] Laboratory [address] [place] [address] MCH (RBC) [Entitic mass] 29.2 pg Normal 27.0-34.0 [facility] Comment on above: Performed By: #### 1 6434566, 1356386, 0022256, 1820453, 29544772, 7069948, 1439620, 7215991, 2662840, 37226410, 6515979 #### [facility] Laboratory [address] [place] [address] MCHC (RBC) [Mass/Vol] 33.8 g/dL Normal 33.3-35.7 [facility] Comment on above: Performed By: #### 1 6030552, 4018104, 2842017, 4362065, 62991855, 6116843, 2738098, 9449416, 2189589, 90591858, 3608714 #### [facility] Laboratory [address] [place] [address] MCV (RBC) [Entitic vol] 86.6 fL Normal 80.0-100.0 [facility] Comment on above: Performed By: #### 1 6022974, 2232520, 8528824, 3287650, 58380676, 4263941, 6328860, 4298945, 6155816, 34060932, 1637131 #### [facility] Laboratory [address] [place] [address] Platelet mean volume (Bld) [Entitic vol] 8.8 fL Normal 6.4-10.8 [facility] Comment on above: Performed By: #### 1 0758190, 2129453, 4646962, 4293184, 99049741, 5465418, 4769868, 0674031, 1572819, 11981157, 9472148 #### [facility] Laboratory [address] [place] [address] Platelets (Bld) [#/Vol] 307.0 E9/L Normal 150.0-500.0 [facility] Comment on above: Performed By: #### 1 3996872, 9400750, 7729182, 1040410, 37631798, 4527207, 1925385, 9171635, 1781939, 83288226, 2687484 #### [facility] Laboratory [address] [place] [address] RBC (Bld) [#/Vol] 4.6 E12/L Normal 4.3-5.9 [facility] Comment on above: Performed By: #### 1 9384337, 5540169, 8138835, 0776336, 07507637, 5731602, 1692280, 4849089, 6038982, 10778514, 5945709 #### [facility] Laboratory [address] [place] [address] WBC corrected for nucl RBC Auto (Bld) [#/Vol] 9.9 E9/L Normal 4.0-11.0 [facility] Comment on above: Performed By: #### 1 1820022, 8707506, 7802912, 8807189, 37519369, 9347101, 8960304, 7415141, 7677720, 34662972, 0048019 #### [facility] Laboratory [address] [place] [address] CKon 09-14-2018 CK [Catalytic activity/Vol] 53 Int._Unit/L Normal 14-261 [facility] Comment on above: Performed By: #### 1 3527372, 4500236, 5116234, 9061608, 56555840, 5963864, 9139577, 7868256, 6977457, 81932316, 7360571 #### [facility] Laboratory [address] [place] [address] ED Clinical Summaryon 2018 ED Clinical Summary (Inserted Image. Melissa ble to display) [address] [address] ED Clinical Summary Person Information Name: JONES HALEY [place] Age: 37 Years : 1980 12:00 AM Sex: Female Language: Finnish PCP: Charles Mitchell DO Marital Status: Single Phone: [phone] Visit Id: Visit Reason: Anxiety; Paraesthesia; NUMBNESS [...] 09/14/2018 12:17 AM 09/14/2018 12:17 AM ADDRESS: [address] [place] [address] [place] [phone] PHYS DOC NOTES: MEDICAL INFORMATION: Prescriptions Given: Prescription Display gabapentin (gabapentin 100 mg Cap) 100 mg = 1 cap(s), Oral, Daily, X 7 day(s), # 7 cap(s), Refills(s) 0, Pharmacy: [facility] gabapentin (gabapentin 100 mg Cap) 100 mg = 1 cap(s), Oral, Daily, X 7 day(s), # 7 cap(s), Refills(s) 0, Pharmacy: [facility]/pharmacy #6177 magnesium oxide (magnesium oxide 400 mg Tab) 400 mg = 1 tab(s), Oral, Daily, X 7 day(s), # 7 tab(s), Refills(s) 0, Pharmacy: [facility] magnesium oxide (magnesium oxide 400 mg Tab) 400 mg = 1 tab(s), Oral, Daily, X 7 day(s), # 7 tab(s), Refills(s) 0, Pharmacy: [facility]/pharmacy #6177 Home Meds Display metformin (metformin 500 mg ER Tab) 250 mg, Oral, BID, Refills(s) 0 PATIENT EDUCATION INFORMATION: Instructions: Paresthesia, Eiit-ts-Xgoj; Restless Legs Syndrome Follow up: With: Address: When: Sayda Kelley [address] [address] Business (1) Within 1 to 2 days Comments: neurologist you may also follow up with him With: Address: When: [place] [id number] [facility] (1) Within 1 to 2 days Comments: Return to ED if symptoms worsen DIAGNOSIS: 1:Restless leg syndrome Normal [facility] ED Note-Nursingon 09-14-2018 ED Note-Nursing Pt up to RR, gait steady. Normal [facility] ED Note-Nursing Aware of need for ur ine specimen, denies urge at present, states will notify when able to produce sample, will monitor. Normal [facility] ED Note-Physicianon 09-15-19 19 ED Note-Physician Basic [...] day(s), # 7 cap(s), Refills(s) 0, Pharmacy: [facility]/pharmacy #6177 magnesium oxide, 400 mg = 1 tab(s), Oral, Daily, X 7 day(s), # 7 tab(s), Refills(s) 0, Pharmacy: [facility]/pharmacy #6177 Sodium Chloride 0.9% intravenous solution 1,000 [...] Sayda Kelley Within 1 to [address] [address]- Business (1) Additional Instructions: neurologist you may also follow up with him Charles Mitchell Within 1 to 2 days [address] [place] [address]- Business (1) Additional Instructions: Return to ED if symptoms worsen Patient Education Paresthesia, Whau-qs-Mhqv Restless Legs Syndrome Problem List/Past Medical History [...] Lymph Auto: 30.6 % (09/13/18 23:03:00 EDT) [place] Auto: 7.2 % (09/13/18 23:03:00 EDT) Eos Auto: 2.2 % (09/13/18 23:03:00 EDT) Basophil Auto: 0.6 % (09/13/18 23:03:00 EDT) Neutro Absolute: 5.9 E9/L (09/13/18 23:03:00 EDT) Lymph Absolute: 3 E9/L (09/13/18 23:03:00 EDT) [place] Absolute: 0.7 E9/L (04/23/19 23:03:00 EDT) Eos [...] Results No qualifying data available. Normal [facility] Comment on above: Result Comment: Elec [...] Document Reviewed: 01/29/2012 ExitCare? Patient Information ?2015 [employer]. This information is not intended to replace [...] ? Drawing. ? Crawling. ? Worming. ? [place]. ? Tingling. ? Pins and needles. ? [...] Document Reviewed: 08/06/2011 ExitCare? Patient Information ?2015 [employer]. This information is not intended to replace advice given to you by your health care provider. Make sure you discuss any questions you have with your health care provider. Normal [facility] ED Patient Summaryon 019 ED Patient Summary (Inserted Image. Melissa ble to display) [place] [id number] Patient Discharge Instructions Person Information Name: JONES HALEY Age: 37 Years [facility]: [phone] Arrival Date: 09/13/2018 10:16 PM Discharge Diagnosis: 1:Restless leg syndrome Primary Care Physician: Charles Mitchell DO Provider Information Primary Provider: Génesis Lozoya DO [employer] Specialist:None The exam and treatment you received in the Emergency Department were for an urgent problem and are not intended as complete care. It is important that you follow up with a doctor, nurse practitioner, or physician?s speech correction assistant for ongoing care. If your symptoms [...] Follow-up Instructions: With: Address: When: Sayda Kelley [facility], [address] [address] Business (1) Within 1 to 2 days Comments: neurologist you may also follow up with him With: Address: When: Charles Mitchell [address] [place] [id number] Business (1) Within 1 to 2 days Comments: Return to ED if symptoms worsen In the event that this physician does not participate in your insurance network, please consult with your insurance company to find a nearby participating provider. Patient Education Materials: Paresthesia, Awio-os-Fejw; Restless Legs Syndrome A MESSAGE TO ALL PATIENTS REGARDING OPIOIDS PRESCRIPTION OPIOIDS: WHAT YOU NEED TO KNOW Prescription opioids can be used to help relieve kssujryp-zs-lannud pain and are often prescribed following a [...] be struggling with addiction, tell your health pet caretaker and ask for guidance or call [employer] National Helpline at 9-805-724-SRNS. v Source: [place] Department of Health and Human Services/Center for Disease Control & Prevention [facility] Medications Given: Medication Dose Route Sodium Chloride 0.9% intravenous solution 1000.00 mL Initial Volume 1000.00 mL/hr IV Piggyback Left Mid Forearm Medication Information: New Medications [id number], [address], [place] [id number], [phone] gabapentin (gabapentin 100 mg Cap) 1 Capsules By Mouth every day for 7 Days. Refills: 0. magnesium oxide (magnesium oxide 400 mg Tab) 1 Tabs By Mouth every day for 7 Days. Refills: 0. [facility], [address] [place], [place] [id number], [phone] gabapentin (gabapentin 100 mg Cap) 1 Capsules By Mouth every day for 7 Days. Refills: 0. magnesium oxide (magnesium oxide 400 mg Tab) 1 Tabs By Mouth every day for 7 Days. Refills: 0. Medications to Continue with No Changes Other Medications metformin (metformin 500 mg ER Tab) 250 Milligram By Mouth 2 times a day. Comment: Pharmacy Information: Thank you for choosing [facility] Patient Education Materials: Paresthesia Paresthesia is [...] Document Reviewed: 01/29/2012 ExitCare? Patient Information ?2015 [place]. This information is not intended to replace [...] ? Drawing. ? Crawling. ? Worming. ? [place]. ? Tingling. ? Pins and needles. ? [...] Document Reviewed: 08/06/2011 ExitCare? Patient Information ?2014 [place]. This information is not intended to replace advice given to you by your health care provider. Make sure you discuss any questions you have with your health care provider. TERA Dorantes NICOLE B , have received the following patient education materials/instructions and have verbalized understanding: Patient Education Materials: Paresthesia, Bpbg-yu-Fjuo; Restless Legs Syndrome Follow-up Instructions: With: Address: When: Sayda Kelley [address] [address] Business (1) Within 1 to 2 days Comments: neurologist you may also follow up with him With: Address: When: [address] [address] Business (1) Within 1 to 2 days Comments: Return to ED if symptoms worsen Prescriptions: [gabapentin (gabapentin 100 mg Cap)] [gabapentin (gabapentin 100 mg Cap)] [magnesium oxide (magnesium oxide 400 mg Tab)] [magnesium oxide (magnesium oxide 400 mg Tab)] Patient Signature Date Clinician/Nurse Signature Date 09/14/18 00:21:38 Normal [facility] Hep [facility] Panelon 09-14-2018 Bilirubin.direct [Mass/Vol] UTC Abnormal 0.1-0.9 [facility] Comment on above: Result Comment: Resu lt verified by Discern Rule. Performed result [facility] (Unable to Calculate) was sent as an Alpha code due the inability to calculate a valid numeric value. Performed By: #### 1 [id number], 5719928, 5236017, 9686524, 95051101, 1983884, 3255800, 6606514, 1143293, 87499827, 5481390 #### [facility] [address] [place] [address] Albumin [Mass/Vol] 1.1 g/dL Normal 1.1-2.2 [facility] Comment on above: Performed By: #### 1 3930730, 9972743, 9261286, 1135163, 86673927, 1774053, 2391096, 0168344, 6345495, 54698017, 0072820 #### [facility] [address] [place] [address] Albumin [Mass/Vol] 4.1 g/dL Normal 3.3-5.0 [facility] Comment on above: Performed By: #### 1 3515602, 0179224, 6899552, 1994793, 01335796, 2670984, 3179635, 1092158, 9679334, 01591159, 5450330 #### [facility] [address] [place] [address] ALP [Catalytic activity/Vol] 69 Int._Unit/L Normal 21-98 [facility] Comment on above: Performed By: #### 1 4396906, 4902683, 3335482, 2626116, 82410389, 5444159, 1162181, 8824030, 8582026, 79403234, 3857570 #### [facility] [address] [place] [address] ALT No additional P-5'-P [Catalytic activity/Vol] 27 Int._Unit/L Normal 6-46 [facility] Comment on above: Performed By: #### 1 [id number], 0911115, 0924304, 9159185, 49127837, 4593525, 0768283, 6957566, 9237658, 54114569, 3326899 #### [facility] [address] [place] [address] AST [Catalytic activity/Vol] 16 Int._Unit/L Normal 5-43 [facility] Comment on above: Performed By: #### 1 0851921, 9897076, 7717929, 6854813, 63451257, 3385273, 1479022, 2393324, 1781396, 76211025, 8138966 #### [facility] [address] [place] [address] Bilirubin [Mass/Vol] 0.5 mg/dL Normal 0.0-1.1 [facility] Comment on above: Performed By: #### 1 4240706, 3555480, 8994993, 6448741, 62114006, 5749361, 2078271, 7845371, 8262704, 04670738, 6418872 #### [facility] [address] [place] [address] Bilirubin.direct [Mass/Vol] mg/dL Normal 0.1-0.4 [facility] Comment on above: Performed By: #### 1 0948488, 1656608, 2838172, 9109181, 41347451, 1549120, 7784450, 4977388, 9786978, 73069189, 9886612 #### [facility] [address] [place] [address] Globulin (S) [Mass/Vol] 3.7 g/dL Normal 1.4-4.0 [facility] Comment on above: Performed By: #### 1 3662255, 1404697, 7067582, 4251538, 01789280, 4233708, 4343291, 0658048, 8842533, 36873340, 2504218 #### [facility] [address] [place] [address] Protein [Mass/Vol] 7.8 g/dL Normal 6.0-7.8 [facility] Comment on above: Performed By: #### 1 8304766, 7315183, 7778356, 1664642, 83335967, 9472796, 0207483, 1643926, 0828697, 66458884, 8345901 #### [facility] [address] [place] [address] Magnesiumon 09-14-2018 Magnesium [Mass/Vol] 1.9 mg/dL Normal 1.3-2.4 [facility] Comment on above: Performed By: #### 1 7153680, 8925400, 5623790, 4301049, 86569672, 8290509, 7699412, 7925356, 3486391, 69243747, 2238351 #### [facility] [address] [place] [address] Myoglobinon 09-14-2018 Myoglobin [Mass/Vol] 9 ng/mL Normal <=69 [facility] Comment on above: Performed By: #### 1 9444932, 7660604, 4267319, 8244266, 04854139, 2667266, 1395604, 7332736, 4297798, 69969152, 0662396 #### [facility] [address] [place] [address] PT & PTTon 09-14-2018 aPTT Coag (PPP) [Time] 34.5 second(s) Normal 25.1-36.5 [facility] Comment on above: Result Comment: Hepa rin therapeutic range (represented by Anti-Factor Xa activity of 0.2 - 0.4 U/mL) corresponds to PTT of 56.6 - 109.0 sec. Performed By: #### 1 1745203, 7036904, 5040168, 9399704, 55795386, 7071548, 3388094, 0893247, 3306808, 18909247, 0841737 #### [facility] [address] [place] [address] INR Coag (PPP) [Relative time] 1.0 {INR} [facility] Comment on above: Result Comment: INR results are specifically intended to assess patients stabilized on long-term Anticoagulation therapy suggested INR?s ?Less Intensive Anticoagulation? 2.0 ? 3.0 Conventional Range 3.0 ? 4.5 Performed By: #### 1 1014588, 3509574, 7540258, 6004037, 70863222, 0123040, 8301711, 9083207, 7744086, 72057472, 6067654 #### [facility] [address] [place] [address] PT Coag (PPP) [Time] 11.2 second(s) Normal 10.2-12.9 [facility] Comment on above: Performed By: #### 1 7508995, 3985196, 8102577, 9623447, 06868912, 3469747, 2869550, 2475565, 3453897, 26293745, 8476705 #### [facility] [address] [place] [address] Phosphoruson 09-14-2018 Phosphate [Mass/Vol] 3.8 mg/dL Normal 1.9-4.6 [facility] Comment on above: Performed By: #### 1 4312247, 1394986, 9701960, 0514975, 49948525, 5556670, 6501479, 4184456, 1665834, 62467714, 3416033 #### [facility] [address] [place] [address] Troponin 0 Hr.on 09-14-2018 Troponin I.cardiac [Mass/Vol] ng/mL Normal <=0.03 [facility] Comment on above: Result Comment: New Troponin Assay 10/05/13 [place] Cutoff value > or = 0.03 ng/mL in conjunction with clinical conditions of myocardial infarction. ([email or web address]/guidelines) Performed By: #### 1 3562648, 1723187, 7650133, 2176245, 71235771, 1243297, 8074844, 3413359, 5246561, 41407057, 1574767 #### [facility] [address] [place] [address] UA With Cult Reflexon 2018 Bacteria LM Ql (Urine sed) TRACE Normal Trace [facility] Comment on above: Performed By: #### 1 9727598, 4994509, 6240238, 2625156, 33567443, 5848338, 2666246, 4208265, 4697739, 35153565, 3414864 #### [facility] [address] [place] [address] Bilirubin Ql (U) Negative Normal Negative [facility] Comment on above: Performed By: #### 1 8397388, 8258600, 6075979, 1334860, 29234309, 3498798, 0291289, 2154451, 6000955, 41786389, 7265381 #### [facility] [address] [place] [address] Clarity (U) CLEAR Normal Clear [facility] Comment on above: Performed By: #### 1 0051091, 9107371, 0502172, 7984739, 09279339, 9048844, 2850135, 4326349, 4530185, 41056228, 1144827 #### [facility] [address] [place] [address] Color (U) YELLOW Normal Yellow [facility] Comment on above: Performed By: #### 1 3654688, 5795576, 6820458, 7323630, 58424018, 6510798, 5918630, 8986828, 7837476, 92096660, 1844786 #### [facility] [address] [place] [address] Epithelial cells.squamous LM.HPF (Urine sed) [#/Area] 0-2 Normal 0-2 [facility] Comment on above: Performed By: #### 1 5958019, 7215863, 0647163, 5381459, 05648649, 6469603, 0054630, 0575932, 3485790, 17196113, 9389099 #### [facility] [address] [place] [address] Glucose Test strip (U) [Mass/Vol] Negative Normal Negative [facility] Comment on above: Performed By: #### 1 1755163, 7606366, 8447515, 8767810, 84031796, 5022409, 8911362, 2794838, 4310602, 16877569, 6799400 #### [facility] [address] [place] [address] Hemoglobin Ql (U) Negative Normal Negative [facility] Comment on above: Performed By: #### 1 8985652, 8969847, 8374880, 1403435, 96557476, 2474740, 2578731, 9026471, 4553544, 16282937, 7601127 #### [facility] [address] [place] [address] Ketones (U) [Mass/Vol] Negative Normal Negative [facility] Comment on above: Performed By: #### 1 8723213, 0735308, 9682815, 4954933, 84261125, 1925118, 1559745, 4227811, 5356426, 19213010, 0533862 #### [facility] [address] [place] [address] [place].plasma/Lithi um.RBC (Bld) [Mass ratio] 0-3 Normal 0-3 [facility] Comment on above: Performed By: #### 1 8709876, 2730046, 5509127, 4161465, 25010345, 5823532, 9543186, 2989338, 1205505, 34964990, 0552946 #### [facility] [address] [place] [address] Mucus Ql (Urine sed) TRACE Normal [facility] Comment on above: Performed By: #### 1 8461759, 7360231, 9687944, 2795688, 95606763, 3217777, 9296203, 8258819, 9921329, 85089508, 4212290 #### [facility] [address] [place] [address] Nitrite Ql (U) Negative Normal Negative [facility] Comment on above: Performed By: #### 1 2106013, 5298495, 8151994, 9931376, 86133326, 9537095, 9054372, 7983438, 4678366, 57107018, 4379199 #### [facility] [address] [place] [address] pH (U) 6.0 [pH] 5.0-9.0 [facility] Comment on above: Performed By: #### 1 3227157, 7145058, 2445511, 5262375, 91360775, 1938181, 5052254, 3209063, 6219072, 44900109, 9067228 #### [facility] [address] [place] [address] Protein (U) [Mass/Vol] Negative Normal Negative [facility] Comment on above: Performed By: #### 1 2081955, 0250229, 4472509, 4620295, 62705260, 6575041, 0764492, 3914410, 3716563, 65470786, 8004172 #### [facility] [address] [place] [address] Specific gravity (U) [Rel density] 1.010 1.005-1.030 [facility] Comment on above: Performed By: #### 1 6629743, 3595304, 5572324, 8400251, 46072023, 0359458, 5277909, 1467169, 4803812, 93687459, 0010179 #### [facility] [address] [place] [address] UA Spec Desc Clean Catch Normal [facility] Comment on above: Performed By: #### 1 1774401, 7479101, 5998637, 0986782, 93501968, 0412125, 4958262, 2437052, 2454779, 12766339, 5698901 #### [facility] [address] [place] [address] Urobilinogen Qn (U) 0.2 {Carmella'U}/dL Normal 0.0-1.0 [facility] Comment on above: Performed By: #### 1 7652837, 4928796, 1670730, 9570137, 53356236, 5203516, 1372539, 2737461, 1832946, 72079234, 4310581 #### [facility] [address] [place] [address] WBC Auto Ql (U) Negative Normal Negative [facility] Comment on above: Performed By: #### 1 2002042, 2073184, 3582825, 4406480, 03632556, 3576616, 4506116, 7978675, 3888809, 94761408, 7747601 #### [facility] [address] [place] [address] WBC LM.HPF (Urine sed) [#/Area] 0-5 Normal 0-5 [facility] Comment on above: Performed By: #### 1 5901216, 8406158, 3330855, 4047368, 01626101, 7183618, 2386856, 6575702, 6093818, 17124845, 4551986 #### [facility] [address] [place] [address] XR Chest Single Viewon 09-14 XR Chest [...] M.D. Transcribed by: minoo Technologist: AP Normal [facility] XR FOOT LEFT (MIN 3 VIEWS)on 09-14-2018 XR FOOT LEFT (MIN 3 VIEWS) Radiology exam is complete. No Radiologist dictation. Please follow up with ordering provider. Final result Normal [facility] XR FOOT RIGHT (MIN 3 VIEWS)o n 09-14-2018 XR FOOT RIGHT (MIN 3 VIEWS) Radiology exam is complete. No Radiologist dictation. Please follow up with ordering provider. Final result Normal [facility] eGFRon 09-14-2018 GFR/1.73 sq M predicted among blacks MDRD (S/P/Bld) [Vol rate/Area] mL/min/{1.73_m2} Normal >=59 [facility] Comment on above: Order Comment: Order added by Discern Expert. Result Comment: eGFR is race adjusted. AA=. Performed By: #### 1 4752763, 4649130, 1750531, 3753860, 96693971, 6219184, 6432491, 1845462, 2672791, 58342144, 2033719 #### [facility] [address] [place] [address] GFR/1.73 sq M predicted among non-blacks MDRD (S/P/Bld) [Vol rate/Area] mL/min/{1.73_m2} Normal >=59 [facility] Comment on above: Order Comment: Order added by Discern Expert. Result Comment: [employer] anthony kidney disease could be indicated at eGFR's of less than 60 mL/min/1.73m2. Kidney failure is indicated at less than 15 mL/min/1.73m2. Performed By: #### 1 5249715, 2944130, 0780512, 7200889, 47248076, 1961071, 4094544, 7756089, 0563648, 60148695, 5156281 #### [facility] [address] [place] [address] Vital Signs Date Time Vital Sign Value Performing Clinician Facility 07-13-2023 11:49-0500 Body temperature 97.5 [degF] [employer] Work Phone: [facility] 07-13-2023 11:49-0500 Diastolic blood pressure 74 mm[Hg] Ma Sand Work Phone: [facility] 07-13-2023 11:49-0500 Heart rate 83 /min Ma [employer] Work Phone: [facility] 07-13-2023 11:49-0500 Respiratory rate 18 /min [employer] Work Phone: [facility] 07-13-2023 11:49-0500 SaO2% (BldA) [Mass fraction] 96 % Cele Marshall Work Phone: [facility] 07-13-2023 11:49-0500 Systolic blood pressure 109 mm[Hg] Cele Marshall Work Phone: [facility] 07-13-2023 10:01-0500 Diastolic blood pressure 65 mm[Hg] Lois Holm MD Work Phone: [facility] 07-13-2023 10:01-0500 Systolic blood pressure 105 mm[Hg] Lois Holm MD Work Phone: [facility] 07-13-2023 09:41-0500 Body height 170.2 cm Lois Holm MD Work Phone: [facility] 07-13-2023 09:41-0500 Body mass index (BMI) [Ratio] 43.85 kg/m2 Lois Holm MD Work Phone: [facility] 07-13-2023 09:41-0500 Body weight 127.01 kg Lois Holm MD Work Phone: [facility] 07-13-2023 09:41-0500 Heart rate 71 /min Lois Holm MD Work Phone: [facility] 07-06-2023 14:48-0500 Body mass index (BMI) [Ratio] 41.81 kg/m2 Juan Luis Richardson MD Work Phone: [facility] 07-06-2023 14:48-0500 Body weight 119.3 kg Juan Luis Richardson MD Work Phone: [facility] 06-09-2023 08:45-0500 Body height 170.2 cm Michelle TABOR Work Phone: [facility] 06-09-2023 08:45-0500 Body mass index (BMI) [Ratio] 44.48 kg/m2 Michelle TABOR Work Phone: [facility] 06-09-2023 08:45-0500 Body weight 128.82 kg Michelle Britton [employer] Work Phone: [facility] 06-09-2023 08:45-0500 Diastolic blood pressure 82 mm[Hg] Michelle Britton [employer] Work Phone: [facility] 06-09-2023 08:45-0500 Heart rate 80 /min Michelle Britton [employer]IES [employer] Work Phone: [facility] 06-09-2023 08:45-0500 Systolic blood pressure 146 mm[Hg] Michelle Britton [employer] Work Phone: [facility] 05-26-2023 17:17-0500 Body weight 123.83 kg Christie Phan MD Work Phone: [facility] 04-26-2023 14:42-0500 Body weight 125.19 kg Christie Phan MD Work Phone: [facility] 03-19-2023 11:16-0400 Body temperature 97.7 [degF] Ma Sand Work Phone: [facility] 03-19-2023 11:16-0400 Diastolic blood pressure 54 mm[Hg] Ma Sand Work Phone: [facility] 03-19-2023 11:16-0400 Heart rate 75 /min Ma Sand Work Phone: [facility] 03-19-2023 11:16-0400 Respiratory rate 16 /min Ma Sand Work Phone: [facility] 03-19-2023 11:16-0400 SaO2% (BldA) [Mass fraction] 96 % Ma Sand Work Phone: [facility] 03-19-2023 11:16-0400 Systolic blood pressure 111 mm[Hg] Ma Sand Work Phone: [facility] 02-19-2023 10:56-0400 Body height 170.2 cm Jose Najera MD Work Phone: [facility] 02-19-2023 10:56-0400 Body temperature 97.39 [degF] Jose Najera MD Work Phone: [facility] 02-19-2023 10:56-0400 Body weight 120.75 kg Jose Najera MD Work Phone: [facility] 02-19-2023 10:56-0400 Diastolic blood pressure 69 mm[Hg] Jose Najera MD Work Phone: [facility] 02-19-2023 10:56-0400 Heart rate 110 /min Jose Najera MD Work Phone: [facility] 02-19-2023 10:56-0400 Respiratory rate 16 /min Jose Najera MD Work Phone: [facility] 02-19-2023 10:56-0400 SaO2% (BldA) [Mass fraction] 96 % Jose Najera MD Work Phone: [facility] 02-19-2023 10:56-0400 Systolic blood pressure 132 mm[Hg] Jose Najera MD Work Phone: [facility] 01-22-2023 12:09-0400 Diastolic blood pressure 76 mm[Hg] Ma Sand Work Phone: [facility] 01-22-2023 12:09-0400 Systolic blood pressure 107 mm[Hg] Ma Sand Work Phone: [facility] 01-22-2023 12:08-0400 Body temperature 97.59 [degF] Ma Sand Work Phone: [facility] 01-22-2023 12:08-0400 Heart rate 102 /min Ma Sand Work Phone: [facility] 01-22-2023 12:08-0400 Respiratory rate 16 /min Ma Sand Work Phone: [facility] 01-22-2023 12:08-0400 SaO2% (BldA) [Mass fraction] 97 % Ma Sand Work Phone: [facility] 11-19-2022 11:00-0400 Body temperature 97.2 [degF] Ma Sand Work Phone: [facility] 11-19-2022 11:00-0400 Diastolic blood pressure 54 mm[Hg] Ma Sand Work Phone: [facility] 11-19-2022 11:00-0400 Heart rate 98 /min Ma Sand Work Phone: [facility] 11-19-2022 11:00-0400 Respiratory rate 16 /min Ma Sand Work Phone: [facility] 11-19-2022 11:00-0400 SaO2% (BldA) [Mass fraction] 98 % Ma Sand Work Phone: [facility] 11-19-2022 11:00-0400 Systolic blood pressure 126 mm[Hg] Ma Sand Work Phone: [facility] 10-22-2022 11:51-0400 Body height 170.2 cm Ma Sand Work Phone: [facility] 10-22-2022 11:51-0400 Body weight 120.66 kg Ma Sand Work Phone: [facility] 10-22-2022 11:51-0400 Respiratory rate 16 /min Ma Sand Work Phone: [facility] 10-22-2022 10:50-0400 Body height 170.2 cm Jose Najera MD Work Phone: [facility] 10-22-2022 10:50-0400 Body temperature 97 [degF] Jose Najera MD Work Phone: [facility] 10-22-2022 10:50-0400 Body weight 120.75 kg Jose Najera MD Work Phone: [facility] 10-22-2022 10:50-0400 Diastolic blood pressure 55 mm[Hg] Jose Najera MD Work Phone: [facility] 10-22-2022 10:50-0400 Heart rate 78 /min Jose Najera MD Work Phone: [facility] 10-22-2022 10:50-0400 Respiratory rate 16 /min Jose Najera MD Work Phone: [facility] 10-22-2022 10:50-0400 SaO2% (BldA) [Mass fraction] 98 % Jose Najera MD Work Phone: [facility] 10-22-2022 10:50-0400 Systolic blood pressure 132 mm[Hg] Jose Najera MD Work Phone: [facility] 09-24-2022 10:22-0400 Body height 170.2 cm Ma Sand Work Phone: [facility] 09-24-2022 10:22-0400 Body temperature 97 [degF] Ma Sand Work Phone: [facility] 09-24-2022 10:22-0400 Body weight 120.2 kg Ma Sand Work Phone: [facility] 09-24-2022 10:22-0400 Diastolic blood pressure 81 mm[Hg] Ma Sand Work Phone: [facility] 09-24-2022 10:22-0400 Heart rate 77 /min Ma Sand Work Phone: [facility] 09-24-2022 10:22-0400 Respiratory rate 16 /min Ma Sand Work Phone: [facility] 09-24-2022 10:22-0400 SaO2% (BldA) [Mass fraction] 97 % Ma Sand Work Phone: [facility] 09-24-2022 10:22-0400 Systolic blood pressure 116 mm[Hg] Ma Sand Work Phone: [facility] 09-07-2022 14:03-0400 Body weight 120.2 kg Christie Phan MD Work Phone: [facility] 08-27-2022 09:45-0400 Body height 170.2 cm Wilmer Driver APRN.[employer] Work Phone: [facility] 08-27-2022 09:45-0400 Body temperature 97.7 [degF] Wilmer Driver GRADUATE [employer]IES [employer] Work Phone: [facility] 08-27-2022 09:45-0400 Body weight 118.66 kg Wilmer Driver APRN.[employer] Work Phone: [facility] 08-27-2022 09:45-0400 Diastolic blood pressure 55 mm[Hg] Wilmer Driver APRN.[employer] Work Phone: [facility] 08-27-2022 09:45-0400 Heart rate 63 /min Wilmer Driver APRN.[employer] Work Phone: [facility] 08-27-2022 09:45-0400 Respiratory rate 16 /min Wilmer Driver APRN.[employer] Work Phone: [facility] 08-27-2022 09:45-0400 SaO2% (BldA) [Mass fraction] 96 % Wilmer Driver APRN.[employer] INS[employer] Work Phone: [facility] 08-27-2022 09:45-0400 Systolic blood pressure 117 mm[Hg] Wilmer Driver APRN.[employer] Work Phone: [facility] 05-20-2022 13:28-0500 Body height 170.2 cm Jose Najera MD Work Phone: [facility] 05-20-2022 13:28-0500 Body temperature 97.7 [degF] Jose Najera MD Work Phone: [facility] 05-20-2022 13:28-0500 Diastolic blood pressure 70 mm[Hg] Jose Najera MD Work Phone: [facility] 05-20-2022 13:28-0500 Heart rate 93 /min Jose Najera MD Work Phone: [facility] 05-20-2022 13:28-0500 Respiratory rate 16 /min Jose Najera MD Work Phone: [facility] 05-20-2022 13:28-0500 SaO2% (BldA) [Mass fraction] 97 % Jose Najera MD Work Phone: [facility] [facility] 05-[facility]2022 13:28-0500 Systolic blood pressure 127 mm[Hg] Jose Najera MD Work Phone: [facility] 03-18-2022 10:49-0400 Body height 170.2 cm Jose Najera MD Work Phone: [facility] 03-18-2022 10:49-0400 Body temperature 97.81 [degF] Jose Najera MD Work Phone: [facility] 03-18-2022 10:49-0400 Body weight 113.4 kg Jose Najera MD Work Phone: [facility] 03-18-2022 10:49-0400 Diastolic blood pressure 49 mm[Hg] Jose Najera MD Work Phone: [facility] 03-18-2022 10:49-0400 Heart rate 86 /min Jose Najera MD Work Phone: [facility] 03-18-2022 10:49-0400 Respiratory rate 16 /min Jose Najera MD Work Phone: [facility] 03-18-2022 10:49-0400 SaO2% (BldA) [Mass fraction] 98 % Jose Najera MD Work Phone: [facility] 03-18-2022 10:49-0400 Systolic blood pressure 145 mm[Hg] Jose Najera MD Work Phone: [facility] 03-09-2022 11:41-0400 Body height 170.2 cm Christie Phan MD Work Phone: [facility] 03-09-2022 11:41-0400 Body weight 112.49 kg Christie Phan MD Work Phone: [facility] 03-09-2022 11:41-0400 Diastolic blood pressure 100 mm[Hg] Christie Phan MD Work Phone: [facility] 03-09-2022 11:41-0400 Systolic blood pressure 158 mm[Hg] Christie Phan MD Work Phone: [facility] 03-04-2022 10:39-0400 Body height 170.2 cm Jose Najera MD Work Phone: [facility] 03-04-2022 10:39-0400 Body temperature 97.5 [degF] Jose Najera MD Work Phone: [facility] 03-04-2022 10:39-0400 Body weight 112.76 kg Jose Najera MD Work Phone: [facility] 03-04-2022 10:39-0400 Diastolic blood pressure 48 mm[Hg] Jose Najera MD Work Phone: [facility] 03-04-2022 10:39-0400 Heart rate 79 /min Jose Najera MD Work Phone: [facility] 03-04-2022 10:39-0400 Respiratory rate 16 /min Jose Najera MD Work Phone: [facility] 03-04-2022 10:39-0400 SaO2% (BldA) [Mass fraction] 99 % Jose Najera MD Work Phone: [facility] 03-04-2022 10:39-0400 Systolic blood pressure 132 mm[Hg] Jose Najera MD Work Phone: [facility] 11-26-2021 16:00-0400 Body height 168.91 cm Mirela Kelsey Other [facility] Other 11-26-2021 16:00-0400 Body mass index (BMI) [Ratio] 37.68 kg/m2 Mirela Kelsey Other [facility] Other 11-26-2021 16:00-0400 Body temperature 98.4 [degF] Mirela Kelsey Other [facility] Other 11-26-2021 16:00-0400 Body weight 107.5 kg Mirela Kelsey Other [facility] Other 11-26-2021 16:00-0400 Diastolic blood pressure 61 mm[Hg] Mirela Kelsey Other [facility] Other 11-26-2021 16:00-0400 Systolic blood pressure 115 mm[Hg] Mirela Kelsey Other [facility] Other 10-24-2021 08:18-0400 Body weight 108.86 kg Lynne Ni MD Work Phone: [facility] 10-24-2021 08:18-0400 Diastolic blood pressure 42 mm[Hg] Lynne Ni MD Work Phone: [facility] 10-24-2021 08:18-0400 Heart rate 72 /min Lynne Ni MD Work Phone: [facility] 10-24-2021 08:18-0400 Systolic blood pressure 106 mm[Hg] Lynne Ni MD Work Phone: [facility] 10-15-2021 15:45-0400 Body height 168.91 cm Mirela Kelsey Other [facility] Other 10-15-2021 15:45-0400 Body mass index (BMI) [Ratio] 38.31 kg/m2 Mirela Kelsey Other [facility] Other 10-15-2021 15:45-0400 Body temperature 98.1 [degF] Mirlea Kelsey Other [facility] Other 10-15-2021 15:45-0400 Body weight 109.32 kg Mirela Kelsey Other [facility] Other 10-15-2021 15:45-0400 Diastolic blood pressure 60 mm[Hg] Mirela Kelsey Other [facility] Other 10-15-2021 15:45-0400 Systolic blood pressure 114 mm[Hg] Mirela Kelsey Other [facility] Other 09-11-2021 15:15-0400 Body height 168.91 cm Mirela Kelsey Other [facility] Other 09-11-2021 15:15-0400 Body mass index (BMI) [Ratio] 37.99 kg/m2 Mirela Kelsey Other [facility] Other 09-11-2021 15:15-0400 Body temperature 97.9 [degF] Mirela Kelsey Other [facility] Other 09-11-2021 15:15-0400 Body weight 108.41 kg Mirela Kelsey Other [facility] Other 09-11-2021 15:15-0400 Diastolic blood pressure 83 mm[Hg] Mirela Kelsey Other [facility] Other 09-11-2021 15:15-0400 Systolic blood pressure 144 mm[Hg] Mirela Buffy Other [facility] Other 10-07-2020 12:45-0400 Diastolic blood pressure 78 mm[Hg] [facility] Phone: 10-07-2020 12:45-0400 Heart rate 68 /min [facility] Phone: 10-07-2020 12:45-0400 SaO2% (BldA) [Mass fraction] 99 % [facility] Phone: 10-07-2020 12:45-0400 Systolic blood pressure 112 mm[Hg] [facility] Phone: 10-07-2020 10:45-0400 Respiratory rate 22 /min [facility] Phone: 10-07-2020 09:01-0400 Body height 170.2 cm [facility] Phone: 10-07-2020 09:01-0400 Body mass index (BMI) [Ratio] 36.65 kg/m2 [facility] Phone: 10-07-2020 09:01-0400 Body temperature 97.81 [degF] [facility] Phone: 10-07-2020 09:01-0400 Body weight 106.14 kg [facility] Phone: Encounters Encounter Date Encounter Type Care Provider Facility Start: 07-15-2023 End: 07-15-2023 ambulatory BERNABE ENGLISH Not Available Start: 07-13-2023 End: 07-13-2023 ambulatory Aidee Quintanilla [facility] Start: 07-13-2023 End: 07-13-2023 Nursing evaluation of patient and report Cele Marshall Work Phone: Hematology/Oncology Comment on above: 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); Elevated sed rate SPP Inflammatory Con ditions - Medication Refill (Benlysta ) Start: 07-13-2023 End: 07-13-2023 Office outpatient new 45 minutes Lois Holm MD Work Phone: [facility] Comment on above: Shortness of breath [...] minutes Juan Luis Richardson MD Work Phone: [facility] Comment on above: Autoimmune disease ( CMS/HCC) (Primary Dx); Autonomic dysfunction; Lumbosacral radiculopathy; Bilateral leg weakness Start: 07-05-2023 Chart abstracting Juan Luis ramirez MD Work Phone: [facility] Start: 06-10-2023 End: 06-10-2023 ambulatory MADELAINE Batista CHEYENNECristina Facility:[facility] Start: 06-09-2023 End: 06-09-[address] [facility] Amb[facility] Start: 06-09-2023 End: 06-09-2023 Office outpatient new 60 minutes [facility] GRADUATE [employer]IES [employer] INSPECT[employer] Work Phone: [facility] Comment on above: Irregular heart rate (Primary Dx); Essential hypertension; Autonomic dysfunction; Obstructive sleep apnea syndrome; Primary hypertension Start: 06-03-2023 End: 06-03-2023 ambulatory MADELAINE FERRIS Facility:[facility] Start: 06-01-2023 End: 06-01-2023 ambulatory MADELAINE M Cristina Facility:[facility] Start: 06-01-2023 End: 06-01-2023 ambulatory SHARRON ROGERS Not Available Start: 05-26-2023 End: 05-26-2023 ambulatory MADELAINE Batista CHEYENNECristina Facility:[facility] Start: 05-26-2023 End: 05-26-2023 Office outpatient [...] 04-16-2023 End: 04-16-2023 ambulatory MADELAINE Batista Cristina Facility:[facility] Start: 04-16-2023 End: 04-16-2023 Nursing evaluation of patient and report Cele Marshall Work Phone: Hematology/Oncology Comment on above: 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); Elevated sed rate Start: 04-09-2023 End: 04-09-2023 ambulatory MADELAINE M Cristina Facility:[facility] Start: 03-19-2023 End: 03-19-2023 [facility] Start: 03-19-2023 End: 03-19-2023 Nursing evaluation of patient and report Cele Marshall Work Phone: Hematology/Oncology Comment on above: 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); Elevated sed rate Start: 03-16-2023 Chart abstracting [facility] Work Phone: Neurology Comment on above: CMN Start: 03-11-2023 End: 03-11-2023 [facility] Facility:[facility] Start: 03-11-2023 End: 03-11-2023 Nursing evaluation of patient and report Nurse Morgan Fu Work Phone: Rheumatology Comment on above: Systemic lupus eryth ematosus, unspecified SLE type, unspecified organ involvement status (HCC) (Primary Dx) Start: 03-03-2023 End: 03-03-2023 [facility] Facility:[facility] Start: 03-01-2023 Telephone encounter Lynne shaw MD Work Phone: Rheumatology Comment on above: Results (Eye Exam) Start: 02-19-2023 End: 02-19-2023 [facility] Facility:[facility] Start: 02-19-2023 End: 02-19-2023 Nursing evaluation [...] above: Refill Request Start: 02-11-2023 End: 02-11-2023 [facility] Facility:[facility] Start: 02-04-2023 End: 02-04-2023 ambulatory Lynne [...] Elevated sed rate; Bilateral wrist pain; senior care 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; Steroid-induced osteoporosis; 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 Start: 02-04-2023 Patient encounter procedure Clinton Schroeder (Pharmacist) [facility] Comment on above: SPP Inflammatory Con ditions - Treatment Referral (Benlysta); Insurance Authorization (PA submission pending) Start: 02-04-2023 Telephone encounter Lynne shaw MD Work Phone: Rheumatology Comment on above: Appointment; Orders; Medication Authorization Start: 02-04-2023 End: 02-04-2023 ambulatory LYNNE TSAI Facility:[facility] Start: 02-04-2023 End: 02-04-2023 Telemedicine consultation with patient Lynne Ni MD Work Phone: [facility] Start: 01-28-2023 Refill Christie Hays Work Phone: Integrated Medicine Comment on above: Refill Request Start: 01-24-2023 Telephone encounter Lynne shaw MD Work Phone: Rheumatology Comment on above: Results Start: 01-22-2023 End: 01-22-2023 ambulatory MADELAINE FERRIS Facility:[facility] Start: 01-22-2023 End: 01-22-2023 Nursing evaluation of patient and report Nh Nurse Dre Marshall Work Phone: Hematology/Oncology Comment [...] with patient Misty Nelson MD Work Phone: [facility] Start: 12-29-2022 End: 12-29-2022 ambulatory MADELAINE FERRIS Facility:[facility] Start: 12-24-2022 Refill Christie Hays Work Phone: [facility] Comment on above: Refill Request Start: 12-18-2022 Telephone encounter Lidia Argueta RN Work Phone: Hematology/Oncology Comment on above: Care Coordination (a ppointment) Start: 12-17-2022 End: 12-18-2022 ambulatory WILMER VILLA Facility:[facility] Start: 12-17-2022 End: 12-18-2022 ambulatory Wilmer Driver [employer]ADU[employer]IES [employer] INSPECTOR Work Phone: Hematology/Oncology Comment on above: 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); Chronic fatigue and malaise Start: 12-17-2022 End: 12-18-2022 Telemedicine consultation with patient Wilmer Driver [employer]ADUATE [employer]IES [employer] INSPECTOR Work Phone: [facility] Start: 12-16-2022 Telephone encounter [...] Start: 11-19-2022 End: 11-19-2022 ambulatory MADELAINE FERRIS Facility:[facility] Start: 11-19-2022 End: 11-19-2022 Nursing evaluation of patient and report Ma Nurse Dre Marshall Work Phone: Hematology/Oncology Comment on above: 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); Elevated sed rate Start: 10-29-2022 End: 10-29-2022 ambulatory CHRISTIE PHAN Facility:[facility] Start: 10-22-2022 End: 10-22-2022 ambulatory MADELAINE FERRIS Facility:[facility] Start: 10-22-2022 End: 10-22-2022 Nursing evaluation [...] Start: 10-15-2022 End: 10-15-2022 ambulatory MADELAINE FERRIS Facility:[facility] Start: 09-24-2022 End: 09-25-2022 ambulatory MICKY PARNELL . Facility: Start: 09-24-2022 End: 09-24-2022 ambulatory MADELAINE FERRIS Facility:[facility] Start: 09-24-2022 End: 09-24-2022 Nursing evaluation of patient and report Cele Marshall Work Phone: Hematology/Oncology Comment on above: 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); Elevated sed rate Start: 09-10-2022 End: 09-10-[address] MADELAINE FERRIS . Facility: Start: 09-08-2022 Telephone encounter Angelia [facility] Comment on above: Compliance Adherence Start: 09-07-2022 End: 09-07-2022 ambulatory CHRISTIE PHAN Facility:[facility] Start: 09-07-2022 End: 09-07-2022 Office outpatient [...] Start: 08-27-2022 End: 08-27-2022 ambulatory Wilmer Driver APRN.[employer] INSPECTOR Work Phone: Hematology/Oncology Comment on above: 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); Elevated sed rate; High total serum IgM; Chronic fatigue and malaise; JOSE RAFAEL (obstructive sleep apnea) Start: 08-27-2022 End: 08-27-2022 Patient encounter procedure Wilmer Driver APRN.[employer] INSPECTOR Work Phone: [facility] Start: 08-19-2022 Telephone encounter Lynne shaw MD Work Phone: Rheumatology Comment on above: Results Start: 08-18-2022 End: 08-18-2022 ambulatory MADELAINE FERRIS Facility:[facility] Start: 08-15-2022 ambulatory Lynne Ni MD Work Phone: Rheumatology Comment on above: update Start: 08-10-2022 Refill Christie Hays Work Phone: [facility] Comment on above: Refill Request Start: 07-27-2022 End: 07-27-2022 ambulatory TIMMY HECK Facility:[facility] Start: 07-27-2022 End: 07-27-2022 ambulatory Timmy Heck APRN.[employer] INSPECTOR Work Phone: Neurology Comment on above: JOSE RAFAEL (obstructive sle ep apnea) (Primary Dx) Start: 07-27-2022 End: 07-27-2022 Telemedicine consultation with patient Timmy Umang DODSONWIDE PIECE GOODS INSPECTOR Work Phone: [facility] Start: 07-24-2022 ambulatory Lynne Ni MD Work Phone: Rheumatology Comment on above: Blood work Start: 07-24-2022 Telephone encounter Jose hooker MD Work Phone: Hematology/Oncology Comment on above: Orders (Lab Orders E xpire Before Appointment) Start: 07-21-2022 ambulatory Lawanda Miranda MD Work Phone: [facility] Start: 07-21-2022 Patient encounter procedure Lawanda [...] m caregiver Christie Phan MD Work Phone: [facility] Start: 03-18-2022 End: 03-18-2022 Patient encounter procedure Jose Najera MD Work Phone: [place] Start: 03-12-2022 End: 03-13-[address] MADELAINE FERRIS . Facility:[facility] Start: 03-10-2022 End: 03-10-2022 ambulatory Tiffany Adilene LIVE Work Phone: Infectious Disease Comment on above: results Raised level of immu noglobulins (Primary Dx); Wound healing, delayed; Current smoker Start: 03-10-2022 E-mail encounter fro m caregiver Tiffanyasif Kelseyjuancarlos LIVE Work Phone: [facility] Start: 03-10-2022 End: 03-10-2022 Telemedicine consultation with patient Misty Nelson MD Work Phone: [employer] [employer] Start: 03-09-2022 End: 03-10-2022 ambulatory GAY ENCISO Facility:[facility] Start: 03-09-2022 End: 03-09-2022 Office consultation new/estab patient 80 min Christie Phan MD Work Phone: [facility] Comment on above: Obesity, Class II, B KS 35-39.9 (Primary Dx); Somnolence, daytime; Chronic fatigue [...] encounter procedure Jose Najera MD Work Phone: [place] Start: 03-02-2022 Chart abstracting Jose waterman MD [...] with patient Tiffany Head DO Work Phone: [facility] Start: 02-14-2022 End: 02-15-[address] MADELAINE FERRIS . Facility:[facility] Start: 11-26-2021 End: 11-26-2021 ambulatory Mirela Kelsey Other [facility] Other Start: 11-26-2021 Office outpatient vi sit [...] 10-15-2021 End: 10-15-2021 ambulatory Mirela Kelsey Other [facility] Other Start: 10-15-2021 Office outpatient vi sit 25 minutes Mirela LOPEZ Infectious Disease Start: 10-03-2021 End: [address] MIRELA KELSEY Facility:[facility] Start: 09-18-2021 End: 09-18-2021 ambulatory Mirela Kelsey Other [facility] Other Start: 09-18-2021 Telephone encounter Mirela Kelsey FP [facility] Infectious Disease Start: 09-11-2021 End: 09-11-2021 ambulatory Mirela Kelsey Other [facility] Other Start: 09-11-2021 Office outpatient ne w 45 minutes Mirela Buffy [facility] Start: 10-07-2020 End: 10-08-2020 ambulatory JAREN HOLLEY [facility] Start: 10-07-2020 End: 10-07-2020 Subsequent hospital visit by physician Stv Director Web Rm A ST[facility] Director Web Comment on above: Arrived Start: 09-17-2018 End: 09-17-2018 Patient encounter procedure Bettina Jiménez Facility:[facility] Start: 09-14-2018 End: 09-17-2018 Patient encounter procedure VICTOR MANUEL GUZMAN [facility] Procedures Date Procedure Procedure Detail Performing Clinician Start: 07-13-2023 ECG 12-LEAD MICHELLE NAGE L Start: 07-13-2023 Ecg routine ecg w/le ast 12 lds w/i&r Lois Holm MD Work Phone: Start: 06-09-2023 ECG 12-LEAD MICHELLE NAGE L Start: 06-09-2023 Ecg routine ecg w/le ast 12 lds w/i&r Michelle Sharpeel GRADUATE STUDIES [employer] INSPECTOR Work Phone: Start: 10-07-2020 End: 10-07-2020 Cardiac [...] Start: 03-17-2025 Diabetes mellitus screening Diabetes Screening [facility] Start: 07-13-2024 End: 07-13-2024 Patient encounter procedure 07/13/2024 9:20 AM EST Office Visit [place] [address] [place] [address] Lois Holm MD [address] [facility] [address] [place] [address] [facility] Start: 01-24-2024 Influenza vaccination [facility] Comment on above: Postponed from 01/22 (Patient Refused) Start: 09-13-2023 End: 09-13-2023 Patient encounter procedure 09/13/2023 9:00 AM EDT Office Visit [facility] [address] [place] [address] Juan Luis Richardson MD [address] [place] [address] [id number] [facility] Start: 07-19-2023 End: 07-19-2023 Patient encounter procedure [facility] Start: 07-15-2023 End: 07-15-2023 Patient encounter procedure 07/15/2023 10:50 AM EST Office Visit [facility] [address] [place] [address] Bernabe English MD [address] [place] [address] [facility] Start: 07-06-2023 End: 07-06-2023 Patient encounter procedure 07/06/2023 2:30 PM EST Office Visit [facility] [address] [place] [address] [phone] Juan Luis Richardson MD [address] [facility] [address] [place] [id number] [facility] Start: 07-06-2023 End: 07-06-2024 Protein electrophoresis, serum Protein electrophoresis, serum Lab Routine Autoimmune disease (CMS/HCC) Autonomic dysfunction Expected: 07/06/2023 (Approximate), Expires: 07/06/2024 [facility] Work Phone: Comment on above: Expected: 07/06/2023 (Approximate), Expires: 07/06/2024 Start: 07-06-2023 End: 07-06-2024 Protein electrophoresis, urine Protein electrophoresis, urine Lab Routine Autoimmune disease (CMS/HCC) Autonomic dysfunction Expected: 07/06/2023 (Approximate), Expires: 07/06/2024 [facility] Comment on above: Expected: 07/06/2023 (Approximate), Expires: 07/06/2024 Start: 06-09-2023 End: 06-09-2024 Holter monitor study 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 Cardiac Services Routine Irregular heart rate Expected: 06/09/2023 (Approximate), Expires: 06/09/2024 [facility] Work Phone: Comment on above: Expected: 06/09/2023 (Approximate), Expires: 06/09/2024 Start: 06-09-2023 End: 06-09-2024 Lipid 1996 panel - Serum or Plasma Lipid Panel Lab Routine Primary hypertension Expected: 06/09/2023 (Approximate), Expires: 06/09/2024 [facility] Work Phone: Comment on above: Expected: 06/09/2023 (Approximate), Expires: 06/09/2024 Start: 06-09-2023 End: 06-09-2024 Thyrotropin [Units/volume] in Serum or Plasma Thyroid Stimulating Hormone Lab Routine Irregular heart rate Expected: 06/09/2023 (Approximate), Expires: 06/09/2024 [facility] Work Phone: Comment on above: Expected: 06/09/2023 (Approximate), Expires: 06/09/2024 Start: 06-09-2023 End: 06-09-2024 Thyroxine (T4) free [Mass/volume] in Serum or Plasma Thyroxine, Free Lab Routine Irregular heart rate Expected: 06/09/2023 (Approximate), Expires: 06/09/2024 [facility] Work Phone: Comment on above: Expected: 06/09/2023 (Approximate), Expires: 06/09/2024 Start: 06-09-2023 End: 06-09-2025 Heart Transthoracic Transthoracic Echo (TTE) Complete Echocardiography Routine Irregular heart rate Obstructive sleep apnea syndrome Expected: 06/09/2023 (Approximate), Expires: 06/09/2025 [facility] Service Area Work Phone: Comment on above: Expected: 06/09/2023 (Approximate), Expires: 06/09/2025 Start: 04-25-2023 End: 01-25-2024 25-hydroxyvitamin D3 [Mass/volume] in Serum or Plasma VITAMIN D 25 HYDROXY Lab Routine Vitamin D deficiency Expected: 04/25/2023 (Approximate), Expires: 01/25/2024 [facility] Work Phone: Comment on above: Expected: 04/25/2023 (Approximate), Expires: 01/25/2024 Start: 04-25-2023 End: 01-25-2024 C reactive protein [Mass/volume] in Serum or Plasma C-REACTIVE PROTEIN (CRP) Lab Routine Elevated sed rate Elevated C-reactive protein (CRP) Expected: 04/25/2023 (Approximate), Expires: 01/25/2024 [facility] Work Phone: Comment on above: Expected: 04/25/2023 (Approximate), Expires: 01/25/2024 Start: 04-25-2023 End: 01-25-2024 CBC panel - Blood by Automated count CBC Lab Routine Anemia of chronic disease Expected: 04/25/2023 (Approximate), Expires: 01/25/2024 [facility] Work Phone: Comment on above: Expected: 04/25/2023 (Approximate), Expires: 01/25/2024 Start: 04-25-2023 End: 01-25-2024 Comprehensive metabolic 2000 panel - Serum or Plasma COMP METABOLIC PANEL Lab Routine Elevated LFTs Expected: 04/25/2023 (Approximate), Expires: 01/25/2024 [facility] Work Phone: Comment on above: Expected: 04/25/2023 (Approximate), Expires: 01/25/2024 Start: 04-25-2023 End: 01-25-2024 Erythrocyte sedimentation rate SED RATE WESTERGREN Lab Routine Elevated sed rate Elevated C-reactive protein (CRP) Expected: 04/25/2023 (Approximate), Expires: 01/25/2024 [facility] Work Phone: Comment on above: Expected: 04/25/2023 (Approximate), Expires: 01/25/2024 Start: 04-20-2023 COVID-19 Vaccine (4 - Pfizer risk series) COVID-19 Vaccine (4 - Pfizer risk series) [facility] Start: 04-20-2023 Covid-19 Vaccine ( season) Covid-19 Vaccine ( season) [facility] Start: 04-20-2023 Covid-19 Vaccine ( season) Covid-19 Vaccine ( season) [facility] Start: 04-16-2023 End: 02-20-2024 CBC W Auto Differential panel - Blood CBC + DIFF Lab Routine Megaloblastic anemia due to vitamin B12 deficiency Elevated sed rate Chronic fatigue and malaise High total serum IgM JOSE RAFAEL (obstructive sleep apnea) Expected: 04/16/2023 (Approximate), Expires: 02/20/2024 [facility] Work Phone: Comment on above: Expected: 04/16/2023 (Approximate), Expires: 02/20/2024 Start: 04-16-2023 End: 02-20-2024 Cobalamin (Vitamin B12) [Mass/volume] in Serum or Plasma VITAMIN B12 BLOOD Lab Routine Megaloblastic anemia due to vitamin B12 deficiency Elevated sed rate Chronic fatigue and malaise High total serum IgM JOSE RAFAEL (obstructive sleep apnea) Expected: 04/16/2023 (Approximate), Expires: 02/20/2024 [facility] Work Phone: Comment on above: Expected: 04/16/2023 (Approximate), Expires: 02/20/2024 Start: 04-16-2023 End: 02-20-2024 Comprehensive metabolic 2000 panel - Serum or Plasma COMP METABOLIC PANEL Lab Routine Megaloblastic anemia due to vitamin B12 deficiency Elevated sed rate Chronic fatigue and malaise High total serum IgM JOSE RAFAEL (obstructive sleep apnea) Expected: 04/16/2023 (Approximate), Expires: 02/20/2024 [facility] Work Phone: Comment on above: Expected: 04/16/2023 (Approximate), Expires: 02/20/2024 Start: 04-16-2023 End: 02-20-2024 Ferritin [Mass/volume] in Serum or Plasma FERRITIN BLD Lab Routine Megaloblastic anemia due to vitamin B12 deficiency Elevated sed rate Chronic fatigue and malaise High total serum IgM JOSE RAFAEL (obstructive sleep apnea) Expected: 04/16/2023 (Approximate), Expires: 02/20/2024 [facility] Work Phone: Comment on above: Expected: 04/16/2023 (Approximate), Expires: 02/20/2024 Start: 04-16-2023 End: 02-20-2024 Folate [Mass/volume] in Serum or Plasma FOLATE SERUM Lab Routine Megaloblastic anemia due to vitamin B12 deficiency Elevated sed rate Chronic fatigue and malaise High total serum IgM JOSE RAFAEL (obstructive sleep apnea) Expected: 04/16/2023 (Approximate), Expires: 02/20/2024 [facility] Work Phone: Comment on above: Expected: 04/16/2023 (Approximate), Expires: 02/20/2024 Start: 04-16-2023 End: 02-20-2024 Iron and Iron binding capacity panel - Serum or Plasma IRON + TIBC Lab Routine Megaloblastic anemia due to vitamin B12 deficiency Elevated sed rate Chronic fatigue and malaise High total serum IgM JOSE RAFAEL (obstructive sleep apnea) Expected: 04/16/2023 (Approximate), Expires: 02/20/2024 [facility] Work Phone: Comment on above: Expected: 04/16/2023 (Approximate), Expires: 02/20/2024 Start: 03-17-2023 Diabetes mellitus screening Diabetes Screening [facility] Start: 03-10-2023 End: 06-09-2023 Insulin [Units/volume] in Serum or Plasma INSULIN ASSAY BLOOD Lab Routine Insulin resistance, unspecified Expected: 03/10/2023, Expires: 06/09/2023 [facility] Work Phone: Comment on above: Expected: 03/10/2023 , Expires: 06/09/2023 Start: 03-10-2023 End: 06-09-2023 INSULIN ANTIBODY BLD INSULIN ANTIBODY BLD Lab Routine Insulin resistance, unspecified Expected: 03/10/2023, Expires: 06/09/2023 [facility] Work Phone: Comment on above: Expected: 03/10/2023 , Expires: 06/09/2023 Start: 02-11-2023 End: 02-08-2024 [id number] [Mass/volume] in Serum or Plasma B2 MICROGLOBULIN B Lab Routine Megaloblastic anemia due to vitamin B12 deficiency High total serum IgM Elevated sed rate Expected: 02/11/2023 (Approximate), Expires: 02/08/2024 [facility] Work Phone: Comment on above: Expected: 02/11/2023 (Approximate), Expires: 02/08/2024 Start: 02-11-2023 End: 02-08-2024 Calcium.ionized [Moles/volume] in Blood CALCIUM IONIZED BLOOD Lab Routine Megaloblastic anemia due to vitamin B12 deficiency High total serum IgM Elevated sed rate Expected: 02/11/2023 (Approximate), Expires: 02/08/2024 [facility] Work Phone: Comment on above: Expected: 02/11/2023 (Approximate), Expires: 02/08/2024 Start: 02-11-2023 End: 02-08-2024 CBC W Auto Differential panel - Blood CBC + DIFF Lab Routine Megaloblastic anemia due to vitamin B12 deficiency High total serum IgM Elevated sed rate Expected: 02/11/2023 (Approximate), Expires: 02/08/2024 [facility] Work Phone: Comment on above: Expected: 02/11/2023 (Approximate), Expires: 02/08/2024 Start: 02-11-2023 End: 02-08-2024 Cobalamin (Vitamin B12) [Mass/volume] in Serum or Plasma VITAMIN B12 BLOOD Lab Routine Megaloblastic anemia due to vitamin B12 deficiency High total serum IgM Elevated sed rate Expected: 02/11/2023 (Approximate), Expires: 02/08/2024 [facility] Work Phone: Comment on above: Expected: 02/11/2023 (Approximate), Expires: 02/08/2024 Start: 02-11-2023 End: 02-08-2024 Comprehensive metabolic 2000 panel - Serum or Plasma COMP METABOLIC PANEL Lab Routine Megaloblastic anemia due to vitamin B12 deficiency High total serum IgM Elevated sed rate Expected: 02/11/2023 (Approximate), Expires: 02/08/2024 [facility] Work Phone: Comment on above: Expected: 02/11/2023 (Approximate), Expires: 02/08/2024 Start: 02-11-2023 End: 02-08-2024 Ferritin [Mass/volume] in Serum or Plasma FERRITIN BLD Lab Routine Megaloblastic anemia due to vitamin B12 deficiency High total serum IgM Elevated sed rate Expected: 02/11/2023 (Approximate), Expires: 02/08/2024 [facility] Work Phone: Comment on above: Expected: 02/11/2023 (Approximate), Expires: 02/08/2024 Start: 02-11-2023 End: 02-08-2024 Folate [Mass/volume] in Serum or Plasma FOLATE SERUM Lab Routine Megaloblastic anemia due to vitamin B12 deficiency High total serum IgM Elevated sed rate Expected: 02/11/2023 (Approximate), Expires: 02/08/2024 [facility] Work Phone: Comment on above: Expected: 02/11/2023 (Approximate), Expires: 02/08/2024 Start: 02-11-2023 End: 02-08-2024 Iron and Iron binding capacity panel - Serum or Plasma IRON + TIBC Lab Routine Megaloblastic anemia due to vitamin B12 deficiency High total serum IgM Elevated sed rate Expected: 02/11/2023 (Approximate), Expires: 02/08/2024 [facility] Work Phone: Comment on above: Expected: 02/11/2023 (Approximate), Expires: 02/08/2024 Start: 02-11-2023 End: 04-13-2023 KAPPA/FARMER,FREE,SER KAPPA/FARMER,FREE,SER Lab Routine Megaloblastic anemia due to vitamin B12 deficiency High total serum IgM Elevated sed rate Expected: 02/11/2023 (Approximate), Expires: 04/13/2023 [facility] Work Phone: Comment on above: Expected: 02/11/2023 (Approximate), Expires: 04/13/2023 Start: 02-11-2023 End: 02-08-2024 Lactate dehydrogenase [Enzymatic activity/volume] in Serum or Plasma LD LACTATE DEHYDRO Lab Routine Megaloblastic anemia due to vitamin B12 deficiency High total serum IgM Elevated sed rate Expected: 02/11/2023 (Approximate), Expires: 02/08/2024 [facility] Work Phone: Comment on above: Expected: 02/11/2023 (Approximate), Expires: 02/08/2024 Start: 02-11-2023 End: 02-08-2024 MONOCLONAL PROTEIN, SERUM (BLOOD) MONOCLONAL PROTEIN, SERUM (BLOOD) Lab Routine Megaloblastic anemia due to vitamin B12 deficiency High total serum IgM Elevated sed rate Expected: 02/11/2023 (Approximate), Expires: 02/08/2024 [facility] Work Phone: Comment on above: Expected: 02/11/2023 (Approximate), Expires: 02/08/2024 Start: 02-11-2023 End: 02-08-2024 Phosphate [Mass/volume] in Serum or Plasma PHOSPHORUS INORGANIC Lab Routine Megaloblastic anemia due to vitamin B12 deficiency High total serum IgM Elevated sed rate Expected: 02/11/2023 (Approximate), Expires: 02/08/2024 [facility] Work Phone: Comment on above: Expected: 02/11/2023 (Approximate), Expires: 02/08/2024 Start: 02-11-2023 End: 02-08-2024 PROTEIN ELECTROPHORESIS SERUM W/INTERP PROTEIN ELECTROPHORESIS SERUM W/INTERP Lab Routine Megaloblastic anemia due to vitamin B12 deficiency High total serum IgM Elevated sed rate Expected: 02/11/2023 (Approximate), Expires: 02/08/2024 [facility] Work Phone: Comment on above: Expected: 02/11/2023 (Approximate), Expires: 02/08/2024 Start: 02-11-2023 End: 02-08-2024 Urate [Mass/volume] in Serum or Plasma URIC ACID BLOOD Lab Routine Megaloblastic anemia due to vitamin B12 deficiency High total serum IgM Elevated sed rate Expected: 02/11/2023 (Approximate), Expires: 02/08/2024 [facility] Work Phone: Comment on above: Expected: 02/11/2023 (Approximate), Expires: 02/08/2024 Start: 01-22-2023 Influenza vaccination [facility] Start: 12-17-2022 End: 10-23-2023 CBC W Auto Differential panel - Blood CBC + DIFF Lab Routine Megaloblastic anemia due to vitamin B12 deficiency Expected: 12/17/2022 (Approximate), Expires: 10/23/2023 [facility] Work Phone: Comment on above: Expected: 12/17/2022 (Approximate), Expires: 10/23/2023 Start: 12-17-2022 End: 10-23-2023 Cobalamin (Vitamin B12) [Mass/volume] in Serum or Plasma VITAMIN B12 BLOOD Lab Routine Megaloblastic anemia due to vitamin B12 deficiency Expected: 12/17/2022 (Approximate), Expires: 10/23/2023 [facility] Work Phone: Comment on above: Expected: 12/17/2022 (Approximate), Expires: 10/23/2023 Start: 12-17-2022 End: 10-23-2023 Comprehensive metabolic 2000 panel - Serum or Plasma COMP METABOLIC PANEL Lab Routine Megaloblastic anemia due to vitamin B12 deficiency Expected: 12/17/2022 (Approximate), Expires: 10/23/2023 [facility] Work Phone: Comment on above: Expected: 12/17/2022 (Approximate), Expires: 10/23/2023 Start: 12-17-2022 End: 10-23-2023 Ferritin [Mass/volume] in Serum or Plasma FERRITIN BLD Lab Routine Megaloblastic anemia due to vitamin B12 deficiency Expected: 12/17/2022 (Approximate), Expires: 10/23/2023 [facility] Work Phone: Comment on above: Expected: 12/17/2022 (Approximate), Expires: 10/23/2023 Start: 12-17-2022 End: 10-23-2023 Folate [Mass/volume] in Serum or Plasma FOLATE SERUM Lab Routine Megaloblastic anemia due to vitamin B12 deficiency Expected: 12/17/2022 (Approximate), Expires: 10/23/2023 [facility] Work Phone: Comment on above: Expected: 12/17/2022 (Approximate), Expires: 10/23/2023 Start: 12-17-2022 End: 10-23-2023 Iron and Iron binding capacity panel - Serum or Plasma IRON + TIBC Lab Routine Megaloblastic anemia due to vitamin B12 deficiency Expected: 12/17/2022 (Approximate), Expires: 10/23/2023 [facility] Work Phone: Comment on above: Expected: 12/17/2022 (Approximate), Expires: 10/23/2023 Start: 10-23-2022 End: 12-23-2022 25-hydroxyvitamin D3 [Mass/volume] in Serum or Plasma VITAMIN D 25 HYDROXY Lab Routine Megaloblastic anemia due to vitamin B12 deficiency Elevated sed rate High total serum IgM Chronic fatigue and malaise JOSE RAFAEL (obstructive sleep apnea) Expected: 10/23/2022, Expires: 12/23/2022 [facility] Work Phone: Comment on above: Expected: 10/23/2022 , Expires: 12/23/2022 Start: 10-23-2022 End: 12-23-2022 C reactive protein [Mass/volume] in Serum or Plasma C-REACTIVE PROTEIN (CRP) Lab Routine Megaloblastic anemia due to vitamin B12 deficiency Elevated sed rate High total serum IgM Chronic fatigue and malaise JOSE RAFAEL (obstructive sleep apnea) Expected: 10/23/2022, Expires: 12/23/2022 [facility] Work Phone: Comment on above: Expected: 10/23/2022 , Expires: 12/23/2022 Start: 10-23-2022 End: 12-23-2022 CBC W Auto Differential panel - Blood CBC + DIFF Lab Routine Megaloblastic anemia due to vitamin B12 deficiency Elevated sed rate High total serum IgM Chronic fatigue and malaise JOSE RAFAEL (obstructive sleep apnea) Expected: 10/23/2022, Expires: 12/23/2022 [facility] Work Phone: Comment on above: Expected: 10/23/2022 , Expires: 12/23/2022 Start: 10-23-2022 End: 12-23-2022 Cobalamin (Vitamin B12) [Mass/volume] in Serum or Plasma VITAMIN B12 BLOOD Lab Routine Megaloblastic anemia due to vitamin B12 deficiency Elevated sed rate High total serum IgM Chronic fatigue and malaise JOSE RAFAEL (obstructive sleep apnea) Expected: 10/23/2022, Expires: 12/23/2022 [facility] Work Phone: Comment on above: Expected: 10/23/2022 , Expires: 12/23/2022 Start: 10-23-2022 End: 12-23-2022 Comprehensive metabolic 2000 panel - Serum or Plasma COMP METABOLIC PANEL Lab Routine Megaloblastic anemia due to vitamin B12 deficiency Elevated sed rate High total serum IgM Chronic fatigue and malaise JOSE RAFAEL (obstructive sleep apnea) Expected: 10/23/2022, Expires: 12/23/2022 [facility] Work Phone: Comment on above: Expected: 10/23/2022 , Expires: 12/23/2022 Start: 10-23-2022 End: 12-23-2022 Erythrocyte sedimentation rate SED RATE WESTERGREN Lab Routine Megaloblastic anemia due to vitamin B12 deficiency Elevated sed rate High total serum IgM Chronic fatigue and malaise JOSE RAFAEL (obstructive sleep apnea) Expected: 10/23/2022, Expires: 12/23/2022 [facility] Work Phone: Comment on above: Expected: 10/23/2022 , Expires: 12/23/2022 Start: 10-23-2022 End: 12-23-2022 Lactate dehydrogenase [Enzymatic activity/volume] in Serum or Plasma LD LACTATE DEHYDRO Lab Routine Megaloblastic anemia due to vitamin B12 deficiency Elevated sed rate High total serum IgM Chronic fatigue and malaise JOSE RAFAEL (obstructive sleep apnea) Expected: 10/23/2022, Expires: 12/23/2022 [facility] Work Phone: Comment on above: Expected: 10/23/2022 , Expires: 12/23/2022 Start: 10-23-2022 End: 12-23-2022 MONOCLONAL PROTEIN, SERUM (BLOOD) MONOCLONAL PROTEIN, SERUM (BLOOD) Lab Routine Megaloblastic anemia due to vitamin B12 deficiency Elevated sed rate High total serum IgM Chronic fatigue and malaise JOSE RAFAEL (obstructive sleep apnea) Expected: 10/23/2022, Expires: 12/23/2022 [facility] Work Phone: Comment on above: Expected: 10/23/2022 , Expires: 12/23/2022 Start: 10-23-2022 End: 12-23-2022 PROT ELECT SERUM WITH DANA AND INTERP PROT ELECT SERUM WITH DANA AND INTERP Lab Routine Megaloblastic anemia due to vitamin B12 deficiency Elevated sed rate High total serum IgM Chronic fatigue and malaise JOSE RAFAEL (obstructive sleep apnea) Expected: 10/23/2022, Expires: 12/23/2022 [facility] Work Phone: Comment on above: Expected: 10/23/2022 , Expires: 12/23/2022 Start: 09-19-2022 End: 08-20-2023 CBC panel - Blood by Automated count CBC Lab Routine Anemia of chronic disease Expected: 09/19/2022 (Approximate), Expires: 08/20/2023 [facility] Work Phone: Comment on above: Expected: 09/19/2022 (Approximate), Expires: 08/20/2023 Start: 09-19-2022 End: 08-20-2023 Comprehensive metabolic 2000 panel - Serum or Plasma COMP METABOLIC PANEL Lab Routine Elevated LFTs Expected: 09/19/2022 (Approximate), Expires: 08/20/2023 [facility] Work Phone: Comment on above: Expected: 09/19/2022 (Approximate), Expires: 08/20/2023 Start: 09-19-2022 End: 11-19-2022 TPMT PHENOTYPE/ENZYME ACTIVITY TPMT PHENOTYPE/ENZYME ACTIVITY Lab Routine 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 fdc 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 Expected: 09/19/2022 (Approximate), Expires: 11/19/2022 [facility] Work Phone: Comment on above: Expected: 09/19/2022 (Approximate), Expires: 11/19/2022 Start: 08-28-2022 End: 10-28-2022 25-hydroxyvitamin D3 [Mass/volume] in Serum or Plasma VITAMIN D 25 HYDROXY Lab Routine Megaloblastic anemia due to vitamin B12 deficiency Elevated sed rate High total serum IgM Chronic fatigue and malaise Expected: 08/28/2022 (Approximate), Expires: 10/28/2022 [facility] Work Phone: Comment on above: Expected: 08/28/2022 (Approximate), Expires: 10/28/2022 Start: 08-28-2022 End: 07-26-2023 [id number] [Mass/volume] in Serum or Plasma B2 MICROGLOBULIN B Lab Routine Megaloblastic anemia due to vitamin B12 deficiency Elevated sed rate High total serum IgM Chronic fatigue and malaise Expected: 08/28/2022 (Approximate), Expires: 07/26/2023 [facility] Work Phone: Comment on above: Expected: 08/28/2022 (Approximate), Expires: 07/26/2023 Start: 08-28-2022 End: 10-28-2022 C reactive protein [Mass/volume] in Serum or Plasma C-REACTIVE PROTEIN (CRP) Lab Routine Megaloblastic anemia due to vitamin B12 deficiency Elevated sed rate High total serum IgM Chronic fatigue and malaise Expected: 08/28/2022 (Approximate), Expires: 10/28/2022 [facility] Work Phone: Comment on above: Expected: 08/28/2022 (Approximate), Expires: 10/28/2022 Start: 08-28-2022 End: 07-26-2023 Calcium.ionized [Moles/volume] in Blood CALCIUM IONIZED BLOOD Lab Routine Megaloblastic anemia due to vitamin B12 deficiency Elevated sed rate High total serum IgM Chronic fatigue and malaise Expected: 08/28/2022 (Approximate), Expires: 07/26/2023 [facility] Work Phone: Comment on above: Expected: 08/28/2022 (Approximate), Expires: 07/26/2023 Start: 08-28-2022 End: 07-26-2023 CBC W Auto Differential panel - Blood CBC + DIFF Lab Routine Megaloblastic anemia due to vitamin B12 deficiency Elevated sed rate High total serum IgM Chronic fatigue and malaise Expected: 08/28/2022 (Approximate), Expires: 07/26/2023 [facility] Work Phone: Comment on above: Expected: 08/28/2022 (Approximate), Expires: 07/26/2023 Start: 08-28-2022 End: 10-28-2022 Cobalamin (Vitamin B12) [Mass/volume] in Serum or Plasma VITAMIN B12 BLOOD Lab Routine Megaloblastic anemia due to vitamin B12 deficiency Elevated sed rate High total serum IgM Chronic fatigue and malaise Expected: 08/28/2022 (Approximate), Expires: 10/28/2022 [facility] Work Phone: Comment on above: Expected: 08/28/2022 (Approximate), Expires: 10/28/2022 Start: 08-28-2022 End: 07-26-2023 Comprehensive metabolic 2000 panel - Serum or Plasma COMP METABOLIC PANEL Lab Routine Megaloblastic anemia due to vitamin B12 deficiency Elevated sed rate High total serum IgM Chronic fatigue and malaise Expected: 08/28/2022 (Approximate), Expires: 07/26/2023 [facility] Work Phone: Comment on above: Expected: 08/28/2022 (Approximate), Expires: 07/26/2023 Start: 08-28-2022 End: 10-28-2022 Erythrocyte sedimentation rate SED RATE WESTERGREN Lab Routine Megaloblastic anemia due to vitamin B12 deficiency Elevated sed rate High total serum IgM Chronic fatigue and malaise Expected: 08/28/2022 (Approximate), Expires: 10/28/2022 [facility] Work Phone: Comment on above: Expected: 08/28/2022 (Approximate), Expires: 10/28/2022 Start: 08-28-2022 End: 10-28-2022 KAPPA/FARMER,FREE,SER KAPPA/FARMER,FREE,SER Lab Routine Megaloblastic anemia due to vitamin B12 deficiency Elevated sed rate High total serum IgM Chronic fatigue and malaise Expected: 08/28/2022 (Approximate), Expires: 10/28/2022 [facility] Work Phone: Comment on above: Expected: 08/28/2022 (Approximate), Expires: 10/28/2022 Start: 08-28-2022 End: 07-26-2023 Lactate dehydrogenase [Enzymatic activity/volume] in Serum or Plasma LD LACTATE DEHYDRO Lab Routine Megaloblastic anemia due to vitamin B12 deficiency Elevated sed rate High total serum IgM Chronic fatigue and malaise Expected: 08/28/2022 (Approximate), Expires: 07/26/2023 [facility] Work Phone: Comment on above: Expected: 08/28/2022 (Approximate), Expires: 07/26/2023 Start: 08-28-2022 End: 07-26-2023 MONOCLONAL PROTEIN, SERUM (BLOOD) MONOCLONAL PROTEIN, SERUM (BLOOD) Lab Routine Megaloblastic anemia due to vitamin B12 deficiency Elevated sed rate High total serum IgM Chronic fatigue and malaise Expected: 08/28/2022 (Approximate), Expires: 07/26/2023 [facility] Work Phone: Comment on above: Expected: 08/28/2022 (Approximate), Expires: 07/26/2023 Start: 08-28-2022 End: 07-26-2023 Phosphate [Mass/volume] in Serum or Plasma PHOSPHORUS INORGANIC Lab Routine Megaloblastic anemia due to vitamin B12 deficiency Elevated sed rate High total serum IgM Chronic fatigue and malaise Expected: 08/28/2022 (Approximate), Expires: 07/26/2023 [facility] Work Phone: Comment on above: Expected: 08/28/2022 (Approximate), Expires: 07/26/2023 Start: 08-28-2022 End: 07-26-2023 PROTEIN ELECTROPHORESIS SERUM W/INTERP PROTEIN ELECTROPHORESIS SERUM W/INTERP Lab Routine Megaloblastic anemia due to vitamin B12 deficiency Elevated sed rate High total serum IgM Chronic fatigue and malaise Expected: 08/28/2022 (Approximate), Expires: 07/26/2023 [facility] Work Phone: Comment on above: Expected: 08/28/2022 (Approximate), Expires: 07/26/2023 Start: 08-28-2022 End: 07-26-2023 Urate [Mass/volume] in Serum or Plasma URIC ACID BLOOD Lab Routine Megaloblastic anemia due to vitamin B12 deficiency Elevated sed rate High total serum IgM Chronic fatigue and malaise Expected: 08/28/2022 (Approximate), Expires: 07/26/2023 [facility] Work Phone: Comment on above: Expected: 08/28/2022 (Approximate), Expires: 07/26/2023 Start: 07-15-2022 End: 05-20-2023 [id number] [Mass/volume] in Serum or Plasma B2 MICROGLOBULIN B Lab Routine High total serum IgM Expected: 07/15/2022 (Approximate), Expires: 05/20/2023 [facility] Work Phone: Comment on above: Expected: 07/15/2022 (Approximate), Expires: 05/20/2023 Start: 07-15-2022 End: 05-20-2023 Calcium.ionized [Moles/volume] in Blood CALCIUM IONIZED BLOOD Lab Routine High total serum IgM Expected: 07/15/2022 (Approximate), Expires: 05/20/2023 [facility] Work Phone: Comment on above: Expected: 07/15/2022 (Approximate), Expires: 05/20/2023 Start: 07-15-2022 End: 05-20-2023 CBC W Auto Differential panel - Blood CBC + DIFF Lab Routine High total serum IgM Expected: 07/15/2022 (Approximate), Expires: 05/20/2023 [facility] Work Phone: Comment on above: Expected: 07/15/2022 (Approximate), Expires: 05/20/2023 Start: 07-15-2022 End: 05-20-2023 Comprehensive metabolic 2000 panel - Serum or Plasma COMP METABOLIC PANEL Lab Routine High total serum IgM Expected: 07/15/2022 (Approximate), Expires: 05/20/2023 [facility] Work Phone: Comment on above: Expected: 07/15/2022 (Approximate), Expires: 05/20/2023 Start: 07-15-2022 End: 09-14-2022 KAPPA/FARMER,FREE,SER KAPPA/FARMER,FREE,SER Lab Routine High total serum IgM Expected: 07/15/2022 (Approximate), Expires: 09/14/2022 [facility] Work Phone: Comment on above: Expected: 07/15/2022 (Approximate), Expires: 09/14/2022 Start: 07-15-2022 End: 05-20-2023 Lactate dehydrogenase [Enzymatic activity/volume] in Serum or Plasma LD LACTATE DEHYDRO Lab Routine High total serum IgM Expected: 07/15/2022 (Approximate), Expires: 05/20/2023 [facility] Work Phone: Comment on above: Expected: 07/15/2022 (Approximate), Expires: 05/20/2023 Start: 07-15-2022 End: 05-20-2023 MONOCLONAL PROTEIN, SERUM (BLOOD) MONOCLONAL PROTEIN, SERUM (BLOOD) Lab Routine High total serum IgM Expected: 07/15/2022 (Approximate), Expires: 05/20/2023 [facility] Work Phone: Comment on above: Expected: 07/15/2022 (Approximate), Expires: 05/20/2023 Start: 07-15-2022 End: 05-20-2023 Phosphate [Mass/volume] in Serum or Plasma PHOSPHORUS INORGANIC Lab Routine High total serum IgM Expected: 07/15/2022 (Approximate), Expires: 05/20/2023 [facility] Work Phone: Comment on above: Expected: 07/15/2022 (Approximate), Expires: 05/20/2023 Start: 07-15-2022 End: 05-20-2023 PROTEIN ELECTROPHORESIS SERUM W/INTERP PROTEIN ELECTROPHORESIS SERUM W/INTERP Lab Routine High total serum IgM Expected: 07/15/2022 (Approximate), Expires: 05/20/2023 [facility] Work Phone: Comment on above: Expected: 07/15/2022 (Approximate), Expires: 05/20/2023 Start: 07-15-2022 End: 05-20-2023 Urate [Mass/volume] in Serum or Plasma URIC ACID BLOOD Lab Routine High total serum IgM Expected: 07/15/2022 (Approximate), Expires: 05/20/2023 [facility] Work Phone: Comment on above: Expected: 07/15/2022 (Approximate), Expires: 05/20/2023 Start: 06-05-2022 End: 03-05-2023 25-hydroxyvitamin D3 [Mass/volume] in Serum or Plasma VITAMIN D 25 HYDROXY Lab Routine Vitamin D deficiency Expected: 06/05/2022 (Approximate), Expires: 03/05/2023 [facility] Work Phone: Comment on above: Expected: 06/05/2022 (Approximate), Expires: 03/05/2023 Start: 06-05-2022 End: 03-05-2023 C reactive protein [Mass/volume] in Serum or Plasma C-REACTIVE PROTEIN (CRP) Lab Routine Elevated sed rate Elevated C-reactive protein (CRP) Expected: 06/05/2022 (Approximate), Expires: 03/05/2023 [facility] Work Phone: Comment on above: Expected: 06/05/2022 (Approximate), Expires: 03/05/2023 Start: 06-05-2022 End: 03-05-2023 Cobalamin (Vitamin B12) [Mass/volume] in Serum or Plasma VITAMIN B12 BLOOD Lab Routine Vitamin B12 deficiency Expected: 06/05/2022 (Approximate), Expires: 03/05/2023 [facility] Work Phone: Comment on above: Expected: 06/05/2022 (Approximate), Expires: 03/05/2023 Start: 06-05-2022 End: 03-05-2023 Erythrocyte sedimentation rate SED RATE WESTERGREN Lab Routine Elevated sed rate Elevated C-reactive protein (CRP) Expected: 06/05/2022 (Approximate), Expires: 03/05/2023 [facility] Work Phone: Comment on above: Expected: 06/05/2022 (Approximate), Expires: 03/05/2023 Start: 05-06-2022 End: 03-18-2023 [id number] [Mass/volume] in Serum or Plasma B2 MICROGLOBULIN B Lab Routine Megaloblastic anemia due to vitamin B12 deficiency High total serum IgM Expected: 05/06/2022 (Approximate), Expires: 03/18/2023 [facility] Work Phone: Comment on above: Expected: 05/06/2022 (Approximate), Expires: 03/18/2023 Start: 05-06-2022 End: 03-18-2023 Calcium.ionized [Moles/volume] in Blood CALCIUM IONIZED BLOOD Lab Routine Megaloblastic anemia due to vitamin B12 deficiency High total serum IgM Expected: 05/06/2022 (Approximate), Expires: 03/18/2023 [facility] Work Phone: Comment on above: Expected: 05/06/2022 (Approximate), Expires: 03/18/2023 Start: 05-06-2022 End: 03-18-2023 CBC W Auto Differential panel - Blood CBC + DIFF Lab Routine Megaloblastic anemia due to vitamin B12 deficiency High total serum IgM Expected: 05/06/2022 (Approximate), Expires: 03/18/2023 [facility] Work Phone: Comment on above: Expected: 05/06/2022 (Approximate), Expires: 03/18/2023 Start: 05-06-2022 End: 03-18-2023 Comprehensive metabolic 2000 panel - Serum or Plasma COMP METABOLIC PANEL Lab Routine Megaloblastic anemia due to vitamin B12 deficiency High total serum IgM Expected: 05/06/2022 (Approximate), Expires: 03/18/2023 [facility] Work Phone: Comment on above: Expected: 05/06/2022 (Approximate), Expires: 03/18/2023 Start: 05-06-2022 End: 03-18-2023 Ferritin [Mass/volume] in Serum or Plasma FERRITIN BLD Lab Routine Megaloblastic anemia due to vitamin B12 deficiency High total serum IgM Expected: 05/06/2022 (Approximate), Expires: 03/18/2023 [facility] Work Phone: Comment on above: Expected: 05/06/2022 (Approximate), Expires: 03/18/2023 Start: 05-06-2022 End: 03-18-2023 Iron and Iron binding capacity panel - Serum or Plasma IRON + TIBC Lab Routine Megaloblastic anemia due to vitamin B12 deficiency High total serum IgM Expected: 05/06/2022 (Approximate), Expires: 03/18/2023 [facility] Work Phone: Comment on above: Expected: 05/06/2022 (Approximate), Expires: 03/18/2023 Start: 05-06-2022 End: 03-18-2023 Lactate dehydrogenase [Enzymatic activity/volume] in Serum or Plasma LD LACTATE DEHYDRO Lab Routine Megaloblastic anemia due to vitamin B12 deficiency High total serum IgM Expected: 05/06/2022 (Approximate), Expires: 03/18/2023 [facility] Work Phone: Comment on above: Expected: 05/06/2022 (Approximate), Expires: 03/18/2023 Start: 05-06-2022 End: 03-18-2023 MONOCLONAL PROTEIN, SERUM (BLOOD) MONOCLONAL PROTEIN, SERUM (BLOOD) Lab Routine Megaloblastic anemia due to vitamin B12 deficiency High total serum IgM Expected: 05/06/2022 (Approximate), Expires: 03/18/2023 [facility] Work Phone: Comment on above: Expected: 05/06/2022 (Approximate), Expires: 03/18/2023 Start: 05-06-2022 End: 03-18-2023 Phosphate [Mass/volume] in Serum or Plasma PHOSPHORUS INORGANIC Lab Routine Megaloblastic anemia due to vitamin B12 deficiency High total serum IgM Expected: 05/06/2022 (Approximate), Expires: 03/18/2023 [facility] Work Phone: Comment on above: Expected: 05/06/2022 (Approximate), Expires: 03/18/2023 Start: 05-06-2022 End: 03-18-2023 PROTEIN ELECTROPHORESIS SERUM W/INTERP PROTEIN ELECTROPHORESIS SERUM W/INTERP Lab Routine Megaloblastic anemia due to vitamin B12 deficiency High total serum IgM Expected: 05/06/2022 (Approximate), Expires: 03/18/2023 [facility] Work Phone: Comment on above: Expected: 05/06/2022 (Approximate), Expires: 03/18/2023 Start: 05-06-2022 End: 03-18-2023 Urate [Mass/volume] in Serum or Plasma URIC ACID BLOOD Lab Routine Megaloblastic anemia due to vitamin B12 deficiency High total serum IgM Expected: 05/06/2022 (Approximate), Expires: 03/18/2023 [facility] Work Phone: Comment on above: Expected: 05/06/2022 (Approximate), Expires: 03/18/2023 Start: 04-05-2022 COVID-19 VACCINE (5 - Pfizer risk series) COVID-19 VACCINE (5 - Pfizer risk series) [facility] Start: 03-09-2022 End: 05-09-2022 Hemoglobin A1c in Blood HGB A1C Lab Routine Elevated glucose Expected: 03/09/2022, Expires: 05/09/2022 [facility] Work Phone: Comment on above: Expected: 03/09/2022 , Expires: 05/09/2022 Start: 02-24-2022 End: 04-26-2022 BARTONELLA AB PANEL BARTONELLA AB PANEL Lab Routine Swelling of lymph nodes Expected: 02/24/2022, Expires: 04/26/2022 [facility] Work Phone: Comment on above: Expected: 02/24/2022 , Expires: 04/26/2022 Start: 02-24-2022 End: 04-26-2022 BRUCELLA AB TOTAL BRUCELLA AB TOTAL Lab Routine Swelling of lymph nodes Expected: 02/24/2022, Expires: 04/26/2022 [facility] Work Phone: Comment on above: Expected: 02/24/2022 , Expires: 04/26/2022 Start: 02-24-2022 End: 04-26-2022 Cryptococcus sp Ag [Presence] in Unspecified specimen by Latex agglutination CRYPTOCOCCUS AG DET Microbiology Routine Swelling of lymph nodes Expected: 02/24/2022, Expires: 04/26/2022 [facility] Work Phone: Comment on above: Expected: 02/24/2022 , Expires: 04/26/2022 Start: 02-24-2022 End: 04-26-2022 HISTOPLASMA AG URINE HISTOPLASMA AG URINE Lab Routine Swelling of lymph nodes Expected: 02/24/2022, Expires: 04/26/2022 [facility] Work Phone: Comment on above: Expected: 02/24/2022 , Expires: 04/26/2022 Start: 02-24-2022 End: 04-26-2022 HIV 1 RNA [#/volume] (viral load) in Serum or Plasma by YESSI with probe detection HIV RNA VIRAL LOAD Lab Routine Swelling of lymph nodes Expected: 02/24/2022, Expires: 04/26/2022 [facility] Work Phone: Comment on above: Expected: 02/24/2022 , Expires: 04/26/2022 Start: 02-24-2022 End: 04-26-2022 SYPHILIS TOTAL W/REFLEX SYPHILIS TOTAL W/REFLEX Lab Routine Swelling of lymph nodes Expected: 02/24/2022, Expires: 04/26/2022 [facility] Work Phone: Comment on above: Expected: 02/24/2022 , Expires: 04/26/2022 Start: 01-22-2022 Influenza vaccination [facility] Start: 08-24-2021 COVID-19 VACCINE (4 - Booster for Pfizer series) COVID-19 VACCINE (4 - Booster for Pfizer series) [facility] Start: 01-22-2021 Influenza vaccination Flu vacc ine (Season Ended) [facility] [employer] Work Phone: Start: 2020 Lipid panel Lipid screen [facility] Work Phone: Start: 2020 Mammography [facility] Start: 2020 Screening for malign ant neoplasm of breast [facility] Start: 2010 HPV TESTING HPV TESTING [facility] Start: 2010 Screening for malign ant neoplasm of cervix [facility] Start: 2002 DTaP/Tdap/Td Vaccine s (1 - Tdap) DTaP/Tdap/Td Vaccines (1 - Tdap) [facility] Start: 2001 PAP TESTING PAP TESTING [facility] Start: 2001 Screening for malign ant neoplasm of cervix [facility] Start: 10-05-1999 DTaP/Tdap/Td vaccine (1 - Tdap) DTaP/Tdap/Td vaccine (1 - Tdap) [facility] [employer] Phone: Start: 10-05-1999 SHINGRIX VACCINE (1 of 2) SHINGRIX VACCINE (1 of 2) [facility] Start: 10-05-1999 Urine microalbumin profile [facility] Start: 10-05-1999 Zoster Vaccines (1 of 2) Zoster Vacc aston (1 of 2) [facility] Start: 1998 [facility] Start: 1998 HIV SCREENING HIV SCREENING [facility] Start: 1998 HIV screening HIV Screening [facility] Start: 10-05-1995 HIV screening HIV screen [facility] Work Phone: Start: 1992 COVID-19 Vaccine (1) COVID-19 Vaccin e (1) [facility] Work Phone: Start: 1986 PNEUMOCOCCAL (1 - PCV) PNEUMOCOCCAL (1 - PCV) [facility] Start: 1986 Pneumococcal vaccination [facility] Start: 1986 Pneumococcal Vaccine : Pediatrics (0 to 5 Years) and At-Risk Patients (6 to 64 Years) (1 - PCV) Pneumococcal Vaccine: Pediatrics (0 to 5 Years) and At-Risk Patients (6 to 64 Years) (1 - PCV) [facility] Start: 1981 MMR Vaccines (1 of 1 - Standard series) MMR Vaccines (1 of 1 - Standard series) [facility] Start: 1981 Varicella vaccination Varicell a Vaccines (1 of 2 - 2-dose childhood series) [facility] Start: 1981 Varicella vaccine (1 of 2 - 2-dose childhood series) Varicella vaccine (1 of 2 - 2-dose childhood series) [facility] [employer] Phone: Start: 1980 HEPATITIS B (1 of 3 - 3-dose series) HEPATITIS B (1 of 3 - 3-dose series) [facility] Start: 1980 Hepatitis B Vaccine (1 of 3 - 3-dose series) Hepatitis B Vaccine (1 of 3 - 3-dose series) [facility] Start: 1980 Hepatitis B Vaccines (1 of 3 - 3-dose series) Hepatitis B Vaccines (1 of 3 - 3-dose series) [facility] Start: 1980 Hepatitis C [facility] Work Phone: Start: 1980 HIV screening HIV Screening [facility] Start: 1980 Lipid panel Lipid Panel [facility] Start: 1980 Screening for osteoporosis Bone Density Scan [facility] Start: 1980 Yearly Adult Physical Yearly Adult P hycal [facility] Cardiovascular funct ion eval w/tilt table w/mntr TILT TABLE EVALUATION Cardiology Routine POTS (postural orthostatic tachycardia syndrome) Ordered: 03/09/2022 [facility] Work Phone: Comment on above: Ordered: 03/09/2022 End: 03-05-2024 DXA-AXIAL SKELETON DXA-AXIAL SKELETON Radiology Routine Steroid-induced osteoporosis 1 Occurrences starting 02/04/2023 until 03/05/2024 [facility] Work Phone: Comment on above: 1 Occurrences starti ng 02/04/2023 until 03/05/2024 End: 03-05-2024 DXA-FOREARM SKELETON DXA-FOREARM SKELETON Radiology Routine Steroid-induced osteoporosis 1 Occurrences starting 02/04/2023 until 03/05/2024 [facility] Work Phone: Comment on above: 1 Occurrences starti ng 02/04/2023 until 03/05/2024 ECG 12 Lead ECG 12 Lead ECG Routine Irregular heart rate 06/09/2023 8:28 AM EST [facility] Work Phone: End: 03-09-2023 HOME SLEEP APNEA TEST (HSAT) HOME SLEEP APNEA TEST (HSAT) Procedures Routine Somnolence, daytime Snoring 1 Occurrences starting 03/09/2022 until 03/09/2023 [facility] Work Phone: Comment on above: 1 Occurrences starti ng 03/09/2022 until 03/09/2023 Oxygen therapy [[facility] Data Set] Initiate Oxygen Therapy Protocol Respiratory Care Routine Daily until discontinued starting 10/07/2020 [facility] Work Phone: Comment on above: Daily until disconti nued starting 10/07/2020 End: 03-04-2023 Polysomnogram POLYSOMNOGRAM (PSG) Procedures Routine Somnolence, daytime Snoring 1 Occurrences starting 03/04/2022 until 03/04/2023 [facility] Work Phone: Comment on above: 1 Occurrences starti ng 03/04/2022 until 03/04/2023 [facility] Immunizations Immunization Date Immunization Notes Care Provider Fa cility 02-23-2023 COVID-19 vaccine, ag e 12+ yr, 2022- season (PFIZER-BIONTCursogram) Lynne Ni MD Work Phone: [facility] Payers Date Payer Category Payer Self-pay 2017 Unknown [employer] [id number] 2017-Present [address] [place] [address] [id number] 2009 Medicaid [employer] [id number] 2009-Present [phone] [address] [place] [address] Medicaid [id number] 2009 Medicaid [id number]. [id number] 1980 Unknown [id number] [id number]5 1980 Unknown [id number] 2.16.840.1.465325.3.579.2.175 1980 Unknown [id number] 2.16.840.1.124646.3.579.2.593 1980 Unknown [id number] 2.16.840.1.648705.3.579.2.593 1980 Unknown [id number] 2.16.840.1.691494.3.579.2.59 1980 Unknown [id number] 2.16.840.1.447332.3.579.2.59 1980 Unknown [id number] 2.16.840.1.235574.3.579.2. 1980 Unknown [id number] 2.16.840.1.015572.3.579.2.59 1980 Unknown [id number] 2.16.840.1.062466.3.579.2.59 1980 Unknown [id number] 2.16.840.1.101856.3.579.2.59 1980 Unknown [id number] 2.16.840.1.912676.3.579.2. 1980 Unknown [id number] 2.16.840.1.018756.3.579.2.59 1980 Unknown [id number] 2.16.840.1.784576.3.579.2.1243 1980 Unknown [id number] 2.16.840.1.546790.3.579.2.1243 1980 Unknown [id number] 2.16.840.1.965025.3.579.2.1258 1980 Unknown [id number] 2.16.840.1.946445.3.579.2.1258 1980 Unknown [id number] 2.16.840.1.078466.3.579.2.1258 1980 Unknown [id number] 2.16.840.1.434306.3.579.2.1259 1980 Unknown [id number] 2.16.840.1.642072.3.579.2.1259 1980 Unknown [id number] 2.16.840.1.960471.3.579.2.1259 1959 Unknown [id number] 1959 Unknown [id number] Unknown [id number] [id number]1 Social History Date Type Detail Facility Start: 10-07-2020 End: 03-09-2022 Tobacco smoking status NHIS Current every day smoker [facility] Start: 10-07-2020 End: 03-09-2022 Tobacco use and exposure Never used [employer] Start: 10-07-2020 End: 07-13-2023 Alcohol intake Lifetime non-drinker (finding) [employer] Phone: Start: 10-07-2020 History SDOH Alcohol Frequency 1 [employer] Phone: Start: 1980 Sex Assigned At Not on file [facility] Phone: Start: 02-22-2022 End: 07-13-2023 Exposure to SARS-CoV-2 (event) Not sure [employer] History of tobacco use Cigarette Smoker [facility] Start: 05-31-2014 End: 09-24-2022 Cigarettes smoked current (pack per day) - Reported 1 [facility] Start: 10-24-2021 End: 06-10-2023 Alcohol intake Current non-drinker of alcohol (finding) [facility] Start: 10-14-2021 End: 10-24-2021 Exposure to SARS-CoV-2 (event) Unable to assess [facility] Start: 09-24-2022 End: 10-22-2022 Sex Assigned At [facility] Adult Depression Screening Assessment 1 [facility] Start: 10-19-2022 Tobacco Comment Current smoker , everyday, 11-20 cigarettes/day [facility] Start: 05-31-2023 Alcohol Comment Caffeine intak e : > 4 cups per day [facility] Clinical Notes 05-31-2014 to 07-13-2023 Margret Cuenca - 07/13/2023 12:01 PM Olamide Holm MD - 07/13/2023 9:30 AM ESTPatient Beverley Richardson MD - 07/06/2023 2:30 PM Licha Britton, GRADUATE STUDIES [employer] INSPECTOR - 06/09/2023 8:30 AM EST Note Date & Type Note Facility 07-13-2023 Note [facility] 07-13-2023 Nurse Note Patient Identification confirmed: yes. Injection given and documented on JUL per provider order. Margret Cuenca documented in this encounter [facility] 07-13-2023 History of Present illness Narrative Cardiology Consultation- New Consult Reason for referral: Palpitations HPI: Jones Haley is a 42 y.o. female who is being seen in the office for the first time to assess symptoms of chest tightness and palpitation. She was diagnosed with systemic lupus several years ago and is being cared for at the [facility] utilizing steroids, Plaquenil and injectable medication(Benlystal). The patient record indicating having had cardiac catheterization in [place] 3 years ago which was normal. I have the report available for my review. Recently had an echocardiogram at [facility] which was unremarkable and had event monitor [...] lupus being treated by rheumatology at the [facility] on steroids, Plaquenil and monoclonal antibody [...] , Rfl: ergocalciferol (Vitamin D-2) 1.25 MG (02527 UT) capsule, Take 1 capsule (50,000 Units) [...] discussion and plan. documented in this encounter [facility] Work Phone: 07-13-2023 Instructions Lila Tejeda LPN [...] of your visit. documented in this encounter [facility] Work Phone: 07-06-2023 History of Present illness [...] , Rfl: ergocalciferol (Vitamin D2) 1.25 MG (66787 UT) capsule, Take 50,000 Units by mouth [...] Chronic laryngopharyngitis COVID-19 vaccine administered x 2 (Nintu Oy) History of removal of cyst 2013 tailbone [...] reflexes: Stu's absent. Ankle clonus absent. Coordination Dkggvc-ol-lund, rapid alternating movements and aflw-vw-ioro normal bilaterally without dysmetria. Gait Normal casual, [...] for 10 days. documented in this encounter [facility] 06-15-2023 Note [facility] 06-10-2023 Note [facility] 06-09-2023 History of Present illness Narrative Jones Haley is a 42 y.o. female that presents to the office today for new patient evaluation as self referral for palpitations and elevated heart rates. She has a PMH of HTN, HLD, tachycardia, anemia, JOSE RAFAEL with CPAP compliance, lupus, autonomic dysfunction, arthritis, chronic back pain. She has undergone cardiac workup in the past in [place] as noted below. She also states that she follows with Neurology for possible POTS syndrome. Admits to daily tobacco use, 1 pack of cigarettes per day. Denies vaping, ETOH, recreational drugs. Admits to drinking approximately 1 pot of coffee per day. Denies daily exercise. 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 Family history negative [...] , Rfl: ergocalciferol (Vitamin D-2) 1.25 MG (18942 UT) capsule, Take 1 capsule (50,000 Units) [...] Obesity, Class III, BMI 40-49.9 (morbid obesity) ([facility]/HCC) Obstructive sleep apnea syndrome Arthritis Tachycardia Vitamin [...] prepare this document. documented in this encounter [facility] Work Phone: 06-01-2023 Note [facility] 05-26-2023 Note [facility] 05-26-2023 Instructions Christie Phan MD - 05/26/2023 5:43 PM EST Images from the original note were not included. https://[employer]/tofu-bolognese/ https://nutritionstudies.org/how- uq-nmtwuikwx-asstawov-to-adopt-a- fhpsd-iial-zmokp-based-lifestyle/ https://www.[employer] /blog/plantbasedkids https://[employer]ano[employer].com/randee nk-gznpd-njwe-for-kids/ https://Cardback.[employer] Technologies/how-to- kgjpnbdpna-ujlg-tbpg-sh-p-viims-b ased-diet/ WHAT TO EAT? Breakfast: Overnight Oats [...] oatmeal. Can also make in the crockpot. Finnish muffin/almond butter topped with fresh berries Finnish muffin, cooked egg/egg white, tomato, thin slice nepalese cheese Fresh berries, hard boiled egg, whole wheat toast Plain yogurt topped with berries, unsalted nuts, drizzle of honey Whole grain toast/Finnish muffin topped with mashed avocado and tomatoes Lunch: Dinner leftovers packed in Tupperware, side of fruit Salad mixture topped with a protein (chick breast/tuna/hard boiled egg/beans), dressing and side of fruit Dinner - Refer to plate naval surface fire support planner pictures to help select foods and portion ratios of protein, vegetables/starches. Keep it simple and rotate your favorite meals. Sheet nix meals Soups Grilled protein/vegetables/side of starch (plate naval surface fire support planner picture) Stir can with protein, mixed vegetables, and riced cauliflower or portion controlled whole grain rice. Make your own bowls - Greek/Lao/ theme [place] with Zoodles (spiralized vegetable noodles). Roasted vegetable wraps Alter traditional recipes to reflect HIGH QUALITY ingredients in the right QUANTITIES. Snacks - portion controlled: Raw veggies (can have with hummus, mashed avocado, salsa). Unsalted nuts Fruit (1 serving). (optional side of peanut butter) Air pop popcorn [place] and low fat nepalese cheese rolled up String cheese Protein balls (mix rolled oats, nut butter, flax seeds, dash almond milk). Beverages: Water Coffee, Hot tea Unsweetened ice tea EATING OUT: Research menu online, include nutritional information. Make your order decision before getting to restaurant. Stick to recommended portions (plate naval surface fire support planner picture). Ask for substitutions or modifications. [...] baked potato, sprouted grain bread, chick peas https://www.[employer]/articl e/6729100/sjwymlaxkjpns-mjky-ehzn -for-beginners/ https://www.[employer].eHealth [employer]/catego ry/4274/hsivxjocuvyyo-iqqh-tzvyhp / https://www.[employer].eHealth Technologies/catego ry/4300/lrrqyhpbxobxq-owri-yeoj-p lans/ My current favorite cookbooks are documented in this encounter [facility] 05-26-2023 History of Present illness Narrative [...] the date of the service which included anoh-nm-csrh patient care, completing clinical documentation, performing a medically appropriate examination, counseling and educating the patient/family/caregiver, and ordering medications, tests, or procedures. Christie Phan MD, MA, [facility] Lifestyle Medicine Specialist documented in this encounter [facility] 05-19-2023 Note [facility] 04-26-2023 Note [facility] 04-26-2023 Miscellaneous Notes Medication pending with new pharmacy information. documented in this encounter [facility] 04-26-2023 History of Present illness Narrative Images from the original note were not included. [facility] Virtual Follow-Up [...] the date of the service which included mgkl-uq-klac patient care, completing clinical documentation, performing a medically appropriate examination, counseling and educating the patient/family/caregiver, and ordering medications, tests, or procedures. I have communicated my name and active licensure. The patient's identity and physical location were verified at the time of this visit. Either the patient or their legal retail customer service representative has been informed of the risks and benefits of -- and alternatives to -- treatment through a remote evaluation and consents to proceed with the evaluation remotely. Christie Phan MD, MA, [facility] Lifestyle Medicine Specialist documented in this encounter [facility] 04-26-2023 Note [facility] 04-26-2023 Nurse Note Spoke to Jones Haley, confirmed patient is registered on [employer] and is prepared for their appointment. Confirmed the patient has updated medications, allergies, and questionnaires via [employer]. Informed patient if there is an issue with the connection, provider will send the patient a secure link. If provider is running late, patient should remain connected to the visit. Patient verbalized understanding. documented in this encounter [facility] 04-22-2023 Miscellaneous Notes Pt called for Iron results; possible need for transfusion. Pt aware no need for iron infusion at this time. Enma Hamm RN documented in this encounter [facility] 04-16-2023 Note [facility] 04-16-2023 Note HNO ID: [id number] Author: Kenzie Shannon Service: ? Author Type: ? Type: Progress Notes Filed: 04/16/2023 11:10 AM Note Text: Patient Identification confirmed: yes. Injection given and documented on MAR per provider order. Kenzie Shannon [facility] 04-16-2023 History of Present illness Narrative Patient Identification confirmed: yes. Injection given and documented on MAR per provider order. Kenzie Shannon documented in this encounter [facility] 04-01-2023 Note [facility] 03-19-2023 Note HNO ID: [id number] Author: Kenzie Shannon Service: ? Author Type: ? Type: Progress Notes Filed: 03/19/2023 11:22 AM Note Text: Patient Identification confirmed: yes. Injection given and documented on MAR per provider order. Kenzie Shannon [facility] 03-19-2023 History of Present illness Narrative Patient Identification confirmed: yes. Injection given and documented on JUL per provider order. Kenzie Shannon documented in this encounter [facility] 03-16-2023 Note [facility] 03-16-2023 History of Present illness Narrative CMN RECEIVED BY Nitch VIA FAX, COMPLETED, AND PLACED IN PROVIDER MAILBOX FOR SIGNATURE On March 16, 2023 By Marija Ziegler [employer]umber Estimator [employer]. [employer] SENDING CMN: JOSH SIGNED AND DATED CMN, FAXED TO DME & CONFIRMATION PAGE RECEIVED: 03.24.23 documented in this encounter [facility] 03-11-2023 Note [facility] 03-11-2023 History of Present illness Narrative AMBULATORY [...] In Department: RHEUMATOLOGY documented in this encounter [facility] 03-10-2023 Miscellaneous Notes Spoke with patient. We stopped her trulicity because of side effects. She only took the cymbalta for a week. She will restart and we will see how she is doing in 2 months. Have also ordered insulin labs to check for insulin resistance. documented in this encounter [facility] 03-01-2023 Miscellaneous Notes For chart: Eye exam 02/26/23 no ocular complication related to medication. Received eye exam from [facility] Placed on your desk for review. documented in this encounter [facility] 02-19-2023 Note [facility] 02-19-2023 Nurse Note Patient Identification confirmed: yes. Injection given and documented on JUL per provider order. Radha Schofield MA documented in this encounter [facility] 02-19-2023 Instructions Jose Najera MD - 02/19/2023 11:40 AM EDT B12 shot today and every 4 weeks. Continue Folic acid. Follow up in 8 Weeks - labs 1 week before. documented in this encounter [facility] 02-19-2023 History of Present illness Narrative Images from the original note were not included. AMBULATORY TELEPHONE VISIT Jones Haley has consented to this telephone encounter. Persons Present: Patient and myself Chief Complaint/Reason: Anemia; To review recent blood work. HPI: Total Time Spent: 21 minutes Wilmer Driver APRN.WIDE PIECE GOODS INSPECTOR NAME: Jones Haley [facility] NO.: [id number] DATE OF SERVICE: February 19, 2023 ([place]) [...] lower lip done 2 days ago at [facility] - awaiting results. B12 helps [...] She follows with multiple doctors including and samples and repairs preparer, mri specialist, instructor creeler and PCP. She has been told they [...] which included preparing to see the patient, ensv-ma-hdmv patient care, completing clinical documentation, performing a medically appropriate examination, counseling and educating the patient/family/caregiver, ordering medications, tests, or procedures, and independently interpreting results (not separately reported). Jose Najera MD, CPE Hematology and Oncology Services Provided at: [place], [place] CC: Madelaine Ferris MD [facility] [place] [address] documented in this encounter [facility] 02-16-2023 Miscellaneous Notes Notify patient medication [...] RAYRAY INJECTION TEACHING 03/11/2023 7:30 AM [facility] MEG VIDEO SPEC EST 08/12/2023 9:00 AM [facility] MEG Last Ophthalmology Check for [...] Vitamin D deficiency documented in this encounter [facility] 02-08-2023 Miscellaneous Notes Spoke with patient Will get labs done when she does labs in Dec for Dre/Onc Mailed orders for DXA to pt so she can go to [facility] Pre cert Benlyst Scheduled Teaching visit for 4 weeks out to give time for ins and to receive medication. Will edison if not auth or received Scheduled [address] Ni in 6 mo Mirela Carlos February 08, 2023 11:15 AM Please call and schedule nonfasting labs 04/2023 Due for bone mineral density (1st time) patient requests order for [place] Please schedule follow up office visit for [...] Lynne Ni MD documented in this encounter [facility] 02-04-2023 Note [facility] 02-04-2023 Note [facility] 02-04-2023 Note [facility] 02-04-2023 Note [facility] 02-04-2023 Note [facility] 02-04-2023 History of Present illness Narrative [facility] received prescription(s) for Benlysta from Dr. Ni. Benefits investigation was conducted, indicating that a prior authorization is required by patients plan with [facility]. Encounter will be updated once prior authorization has been submitted by [facility]. Carlene Rendon CPhT [facility], Inflammatory P: [phone] F: [phone] documented in this encounter [facility] 02-04-2023 History of Present illness Narrative [...] visit. Either the patient or their legal retail customer service representative has been informed of the [...] neurology/on metoprolol for POTs, avoid aggravating triggers, fdc pain recommendations per primary care provider/pain clinic/patient [...] pain: yes H/o precedent/frequent infection(s): as above Enthesopathy/Mckean's/heel/plant ar tenderness: hands random painful/tingling Skin thickening, [...] COVID-19 original vaccine, age 12+ yr, monovalent (PROTEIN LOUNGE - PURPLE TOP) 09/28/2020 10/19/2020 05/26/2021 COVID-19 vaccine, age 12+ yr, bivalent (PROTEIN LOUNGE) 02/08/2022 Pneumovax no Flu shot no Tetanus [...] (33);NL cbc, cmp, negative hla b27; Outside [place] 06/2021 low vitamin D 16, vitamin b12-307;high [...] M25.531, M25.532 Bilateral wrist pain Z79.52 terminal carman 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 M81.8, T38.0X5A [...] measures, may consider osteoporosis treatment if on fdc steroids/abnormal bmd, take vitamin D script if [...] neurology/on metoprolol for POTs, avoid aggravating triggers, 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 manager pain recommendations per primary care provider/pain clinic/patient currently declined cymbalta/lyrica, see ortho, prn brace, start fall precautions, answered all questions and concerns, patient voiced understanding. RECOMMENDATION/PLAN: [facility] on 02/04/23 DXA-AXIAL SKELETON DXA-FOREARM SKELETON [...] (200mg) daily with a meal Please see operator helper every 6-12months while on Hydroxychloroquine. Start 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 [...] touching your toes, sit-ups, using row machine fdc pain recommendations per primary care provider/pain clinic [...] video & audio (virtual) or phone or fixa-in-uhru patient care, completing clinical documentation, obtaining and/or [...] cc Gay Enciso CNP;Dr.Douglas Sai Ferris MD [facility] INTAKE QUESTIONNAIRE Question 02/02/2023 10:32 [...] Workers' Compensation? No Do you need an sheep rancher? No [facility] MYCHART ZOOM MESSAGE Question 02/02/2023 10:32 [...] Yes Memory Loss: No Swollen Glands: Yes [facility] SLAQ QUESTIONNAIRE Question 02/02/2023 10:38 PM EDT [...] or = 5) documented in this encounter [facility] 02-04-2023 Instructions Lynne Ni MD - [...] (200mg) daily with a meal Please see operator helper every 6-12months while on Hydroxychloroquine. 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 daily [...] touching your toes, sit-ups, using row machine fdc pain recommendations per primary care provider/pain clinic [...] usual activities immediately. documented in this encounter [facility] 01-26-2023 Miscellaneous Notes patient has viewed the Mgv message per J-Kan. Please Call patient if SubC Control note not read to review results/released to [...] Lynne Ni MD documented in this encounter [facility] 01-22-2023 Nurse Note Patient Identification confirmed: yes. Injection given and documented on JUL per provider order. Radha Schofield MA documented in this encounter [facility] 01-12-2023 Miscellaneous Notes Patient needs appointment before I can refill. Patient's request for medication is as follows: Requested Prescriptions Pending Prescriptions Disp Refills dulaglutide (TRULICITY) 1.5 mg/0.5 mL pen injector 2 mL 0 Sig: Inject 1.5 mg subcutaneously one time a week. Please approve the above prescription(s) to electronically send to [facility] pharmacy. Milagro Mendiola MA documented in this encounter [facility] 01-01-2023 Note [facility] 01-01-2023 History of Present illness Narrative VIRTUAL VISIT PROGRESS NOTE This is a virtual visit using SubC Control video visit. It required patient-provider interaction for the medical decision making as documented below. I have communicated my name and active licensure. The patient's identity and physical location were verified at the time of this visit. 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 Wilmer Driver APRN.WIDE PIECE GOODS INSPECTOR Pt called substation electrician supervisor service last evening stating she was suppose to have a phone call with Wilmer at 330 and never received a call. Pt is still waiting (536 pm 12/17/22). Please advise Lidia Argueta RN documented in this encounter [facility] 12-18-2022 History of Present illness Narrative [...] Total Time Spent: 21 minutes Wilmer Driver APRN.WIDE PIECE GOODS INSPECTOR NAME: Jones Haley CLINIC NO.: [id number] DATE OF SERVICE: October 22, 2022 ([place]) [...] lower lip done 2 days ago at [facility] - awaiting results. B12 helps [...] She follows with multiple doctors including and samples and repairs preparer, mri specialist, instructor creeler and PCP. She has been told they [...] which included preparing to see the patient, korx-nc-kmes patient care, completing clinical documentation, performing a medically appropriate examination, counseling and educating the patient/family/caregiver, ordering medications, tests, or procedures, and independently interpreting results (not separately reported). Jose Najera MD, CPE Hematology and Oncology Services Provided at: [place], [place] CC: Madelaine Ferris MD [address] [facility] [address] documented in this encounter [facility] 12-16-2022 Miscellaneous Notes Pt notified and verbalizes understanding. Clerical: Please change tomorrow's appointment to a phone visit at the end of Wilmer's day. Preferred number is [phone]. In addition, pt will be in next 12/25/22 @ 1130 for her B12 shot. Please add her to the MA schedule. Thanks! Pamella Bettencourt RN That would be okay. Have her added at the end of the day. Thanks, Wilmer Driver APRN.WIDE PIECE GOODS INSPECTOR Pt is scheduled for RV w/ Wilmer & B12 tomorrow. She would like to make this a telephone appointment instead and come back next week for B12. Pt had her labs drawn last week. Wilmer: Any objections to meeting w/ pt over the phone tomorrow or would you prefer we switch her to Mason's schedule? Pamella Bettencourt RN documented in this encounter [facility] 12-13-2022 Miscellaneous Notes No clinical utility [...] Enma Hamm RN documented in this encounter [facility] 11-24-2022 Miscellaneous Notes Please call patient [...] Lynne Ni MD documented in this encounter [facility] 11-19-2022 Nurse Note Patient Identification confirmed: yes. Injection given and documented on JUL per provider order. Margret Cuenca documented in this encounter [facility] 10-29-2022 Note [facility] 10-22-2022 Note [facility] 10-22-2022 Nurse Note Patient Identification confirmed: yes. Injection given and documented on JUL per provider order. Stacy Gutiérrez Ma documented in this encounter [facility] 10-22-2022 Instructions Jose Najera MD - 10/22/2022 11:43 AM EDT B12 Shot today and every 4 weeks. Continue Folic acid. Follow up in 8 Weeks - labs 1 week before. documented in this encounter [facility] 10-22-2022 History of Present illness Narrative Images from the original note were not included. NAME: Jones Haley CLINIC NO.: [id number] DATE OF SERVICE: October 22, 2022 ([place]) [...] lower lip done 2 days ago at [facility] - awaiting results. B12 helps [...] She follows with multiple doctors including and samples and repairs preparer, mri specialist, instructor creeler and PCP. She has been told they [...] which included preparing to see the patient, ivtp-hu-mpoi patient care, completing clinical documentation, performing a medically appropriate examination, counseling and educating the patient/family/caregiver, ordering medications, tests, or procedures, and independently interpreting results (not separately reported). Jose Najera MD, CPE Hematology and Oncology Services Provided at: [place], [place] CC: Madelaine Ferris MD [address] [facility] [address] documented in this encounter [facility] 09-24-2022 Nurse Note Patient Identification confirmed: yes. Injection given and documented on JUL per provider order. Stacy Gutiérrez Ma documented in this encounter [facility] 09-11-2022 Note HNO ID: [id number] Author: Joselito Joshi Service: ? Author Type: ? Type: Progress Notes Filed: 09/11/2022 9:10 AM Note Text: Called patient and patient stated she will call back and schedule. Joselito Joshi [facility] 09-08-2022 Miscellaneous Notes Pharmacy-Reviewed Medication History Patient Name:.Jones Haley : 1980 Patient Contact Attempt: First attempt Adherence Packing Program Accepted? No, patient does not wish to participate. Patient is not eligible for adherence packaging because PCP is not within [facility]. Patient wishes to continue at [facility] since medication bottles will look the same and then she can pick-up the medications when she needs them. Stacy Hernandez September 08, 2022 2:28 PM [facility] [phone] documented in this encounter [facility] 09-07-2022 Note [facility] 09-07-2022 History of Present illness Narrative Images [...] which included preparing to see the patient, vieg-ge-zwdt patient care, completing clinical documentation, performing a medically appropriate examination, counseling and educating the patient/family/caregiver, ordering medications, tests, or procedures, and communicating with other HCPs (not separately reported). I have communicated my name and active licensure. The patient's identity and physical location were verified at the time of this visit. Either the patient or their legal retail customer service representative has been informed of the risks and benefits of -- and alternatives to -- treatment through a remote evaluation and consents to proceed with the evaluation remotely. Christie Phan MD, MA, [facility] Lifestyle Medicine Specialist documented in this encounter [facility] 09-07-2022 Nurse Note Called pt to do intake for video visit pt unavailable lft vm msg sent my chart. Milagro Mendiola MA documented in this encounter [facility] 08-31-2022 Miscellaneous Notes called [facility] pharmacy - pharmacy had 1 refill remaining no action needed from our office documented in this encounter [facility] 08-27-2022 Note [facility] 08-27-2022 Nurse Note Patient Identification confirmed: yes. Injection given and documented on JUL per provider order. Stacy Gutiérrez Ma documented in this encounter [facility] 08-27-2022 History of Present illness Narrative Images from the original note were not included. NAME: Jones Haley CLINIC NO.: [id number] DATE OF SERVICE: August 27, 2022 ([place]) [...] She follows with multiple doctors including and samples and repairs preparer, mri specialist, instructor creeler and PCP. She has been told they [...] stomach other (Crohn's [Other]) Mother Wilmer Driver, GRADUATE STUDIES [facility] Hematology and Oncology Services Provided at: [place], [place] CC: Madelaine Ferris MD [address] [facility] [address] I spent a total of 30 minutes on the date of the service which included preparing to see the patient, lumn-nz-lcyf patient care, completing clinical documentation, obtaining and/or reviewing separately obtained history, performing a medically appropriate examination, counseling and educating the patient/family/caregiver, ordering medications, tests, or procedures, independently interpreting results (not separately reported), and communicating results to the patient/family/caregiver. documented in this encounter [facility] 08-19-2022 Miscellaneous Notes -noted MyChart message read by patient 08/19/22 . Last read by Jones Haley at 3:33 PM on 08/19/2022 Please Call patient if MyChart note not read to review results/released to My Chart if tests completed at [facility]: Improved/ mildly high normal inflammatory test- will monitor. Improved/mildly low vitamin b12- take over the counter 4096-9445 mcg daily. Improved/ normal rest of rheum [...] Lynne Ni MD documented in this encounter [facility] 08-18-2022 Miscellaneous Notes MC read by [...] Lynne Ni MD documented in this encounter [facility] 08-10-2022 Miscellaneous Notes [facility] requesting refill, patient never started according to the chart and I have not seen her in follow-up. [facility] Pharmacy request for the following refill(s): Requested Prescriptions Pending Prescriptions Disp Refills DULoxetine (CYMBALTA) 20 mg capsule [Pharmacy Med Name: DULOXETINE HCL DR 20 MG CAP] 30 capsule 2 Sig: TAKE 1 CAPSULE BY MOUTH ONCE DAILY Please review and advise. Jami Everett Cma documented in this encounter [facility] 07-27-2022 Instructions Timmy Heck APRN.TRUE - 07/27/2022 [...] treatment, there are resources available at the [facility] such as a nutrition consultation or referral to weight management programs at our [facility] [place]. Please let us know if we can [...] the central scheduling system for the [facility] [place] at [phone]. [facility] now offers direct scheduling for patients to schedule appointments. Virtual visits are also available. If not covered by your insurance, there is a 35% discount. Please contact your insurance to determine coverage. Call the office at [phone], option #5 for questions. documented in this encounter [facility] 07-27-2022 Note [facility] 07-27-2022 History of Present illness Narrative Images from the original note were not included. [facility] Virtual Visit Follow [...] will have a prescription sent to a [employer] company - [employer] who will be calling you in the next 1-2 weeks or so. Please call them directly or us if you do not hear from them in this time frame. - Will request formal mask fitting - You should be eligible for new supplies approximately every 3-6 months, depending on your insurance coverage. - If your mask doesn't fit well, call the [employer] company before 30 days are up to [...] to ensure the best time for you. [facility] on 04/13/22 CONSULT TO SLEEP MEDICINE - ADULT CPAP/BIPAP/OTHER PAP THERAPY ORDER Lawanda Miranda MD Interval history : Here for follow up for sleep apnea management. SLEEP APNEA Sleep apnea type : JOSE RAFAEL Most Recent Apnea-Hypopnea Index (AHI): 5.3 Treatment : PAP therapy DME: Josh Reese DME fax: [phone] DME ph: [phone] PAP History: Current PAP settin-15 cm H2O. [...] or near accidents due to drowsy drivin [place] Sleepiness Scale 04/12/2022 07/23/2022 Score 4 [...] tests, or procedures. documented in this encounter [facility] 07-24-2022 Miscellaneous Notes Patient called today. [...] patient specific tasks. documented in this encounter [facility] 07-22-2022 Miscellaneous Notes MyChart message sent documented in this encounter [facility] 05-20-2022 History of Present illness Narrative Patient Identification confirmed: yes. Injection given and documented on JUL per provider order. Kenzie Shannon documented in this encounter [facility] 05-20-2022 Miscellaneous Notes Addended by: JOSE NAJERA on: 05/20/2022 02:27 PM Modules accepted: Orders documented in this encounter [facility] 05-20-2022 Instructions Jose Najera MD - 05/20/2022 2:23 PM EST B12 Shot Today and every 4 weeks Get fit for CPAP mask and setting this 05/28/2021 Continue Folic acid. RTC in 8 Weeks - labs 1 week before. documented in this encounter [facility] 05-20-2022 History of Present illness Narrative Images from the original note were not included. NAME: Jones Haley CLINIC NO.: [id number] DATE OF SERVICE: May 20, 2022 ([place]) [...] which included preparing to see the patient, apvg-rb-wjzl patient care, completing clinical documentation, performing a medically appropriate examination, counseling and educating the patient/family/caregiver, ordering medications, tests, or procedures, and independently interpreting results (not separately reported). Jose Najera MD, [facility] Hematology and Oncology Services Provided at: [place], [place] CC: Jose Najera [address] [place] [address] [place] [address] Madelaine Ferris MD, [address] [place], [place] [id number] CC: Madelaine Ferris MD [address] [place], [place] [id number] documented in this encounter [facility] 05-05-2022 Miscellaneous Notes Faxed order, office notes, demographics, and sleep study to: DME name: Josh Reese [facility] fax: [phone] [facility] ph: [phone] Confirmation received. documented in this encounter [facility] 05-05-2022 Miscellaneous Notes [employer] message sent documented in this encounter [facility] 05-05-2022 Miscellaneous Notes [facility] received your PAP order. Due to a major [employer] recall and manufacturing shortage, we are unable to fulfill the request to provide your patient with a CPAP/BIPAP machine at this time. We will keep the request on file and provide when inventory is available or you can forward the order to another DME provider such as [employer], [employer] or [email or web address]. Caring for our patients is our top priority and we apologize for this delay. Thank you for your patience during this time. [phone] #1 documented in this encounter [facility] 04-24-2022 Miscellaneous Notes After review of [...] doctor has noted concern for EDS. Her mri specialist has told her that she has Lupus. Based on her history, I noted we can offer in-person evaluations for herself and/or her son to see if any genetic testing may be useful. I validated and provided support on the difficulty with her ambulation and transport concerns. I noted [facility] does not have other locations and only available at [facility]. I offered social work and/or transport assistance for the visit. She declined this and will discuss with her regarding the transport. She verbalized understanding the reasons for in-person evaluation recommended. She has the [facility] line and will call to reschedule for an in-person evaluation at [facility]. Luann Lance MD [employer], Associate Staff [facility] documented in this encounter [facility] 04-22-2022 Miscellaneous Notes Reached out to [...] copy of the report. Confirmed patient's email Eliza Licea Genetic Counselor Patch Worker documented in this encounter [facility] 03-31-2022 Miscellaneous Notes [facility] pharmacy electronically requests the following refill(s) Requested Prescriptions Pending Prescriptions Disp Refills DULoxetine (CYMBALTA) 20 mg capsule [Pharmacy Med Name: DULOXETINE HCL DR 20 MG CAP] 30 capsule 2 Sig: TAKE 1 CAPSULE BY MOUTH ONCE DAILY Renate Lawrence MA documented in this encounter [facility] 03-30-2022 Miscellaneous Notes LVM and sent [...] Misty Nelson MD documented in this encounter [facility] 03-30-2022 Miscellaneous Notes LVM and sent MyChart regarding Dr. Nelson's directive. documented in this encounter [facility] 03-18-2022 Instructions Jose Najera MD - 03/18/2022 11:16 AM EDT Referral for sleep study pending Start on Folic acid. RTC in 8 Weeks - labs 1 week before. documented in this encounter [facility] 03-18-2022 History of Present illness Narrative Images from the original note were not included. NAME: lazarofrancisco javierJones [place] [facility] NO.: [id number] DATE OF SERVICE: March 18, 2022 ([place]) [...] which included preparing to see the patient, pxxk-lt-ougz patient care, completing clinical documentation, performing a medically appropriate examination, counseling and educating the patient/family/caregiver, ordering medications, tests, or procedures, and independently interpreting results (not separately reported). Jose Najera MD, CPE Hematology and Oncology Services Provided at: [place], [place] CC: Madelaine Ferris MD [address] [facility] [address] documented in this encounter [facility] 03-10-2022 History of Present illness Narrative VIRTUAL VISIT PROGRESS NOTE This is a virtual visit using SubC Control video visit. It required patient-provider interaction for [...] the HR increases again She sees a bill clerk in [place] PCP is running the Holter and echo [...] but was not pursued yet Lives in [place] She did have LN biopsy in the [...] Misty Nelson MD documented in this encounter [facility] 03-09[facility]22 History of Past i llness Narrative Problem Noted Date Diagnosed Date Resolved Date Obesity, Class II, BMI 35-39.9 03/09/2022 03/10/2023 Obesity (BMI 30-39.9) 05/31/20142016 documented as of this encounter (statuses as of 03/10/2023) [facility] History of Past illness Narrative* Problem Noted Date Diagnosed Date Resolved Date Obesity, Class II, BMI 35-39.9 03/09/2022 03/10/2023 Obesity (BMI 30-39.9) 05/31/20142016 documented as of this encounter (statuses as of 03/11/2023) [address]17-2022 History of Past illness Narrative* Problem Noted Date Diagnosed Date Resolved Date Obesity, Class II, BMI 35-39.9 03/09/2022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 (HCC)- Primary [facility] Diagnosis Other systemic lupus erythematosus with other organ involvement (HCC) 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-term (current) use of other medications [facility] Diagnosis 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 Other vitamin B12 deficiency anemia Elevated sed rate Elevated sedimentation rate [facility] Diagnosis 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 Other vitamin B12 deficiency anemia Elevated sed rate Elevated sedimentation rate Chronic fatigue and malaise Chronic fatigue syndrome High total serum IgM JOSE RAFAEL (obstructive sleep apnea) Obstructive sleep apnea (adult) (pediatric) [facility] Diagnosis Insulin resistance, unspecified- Primary Depression, recurrent (HCC) Major depressive disorder, recurrent episode, unspecified Chronic pain syndrome [facility] Diagnosis Systemic lupus erythematosus, unspecified SLE type, unspecified organ involvement status (HCC)- Primary [facility] Diagnosis 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 Other vitamin B12 deficiency anemia Elevated sed rate Elevated sedimentation rate [facility]* Diagnosis 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 Other vitamin B12 deficiency anemia Elevated sed rate Elevated sedimentation rate documented [facility] [place] [facility]* Diagnosis Obesity, Class III, BMI >= 40- Primary Morbid obesity FUO (fever of unknown origin) Fever, unspecified Other chronic pain documented in this encounter [facility] [place] [facility]* Diagnosis Obesity, Class III, BMI >= 40 Morbid obesity documented in this encounter [facility] [place] [facility]* Diagnosis Obesity, Class III, BMI >= 40- Primary Morbid obesity Other chronic pain documented in this encounter [facility] [place] [facility]* Diagnosis Irregular heart rate- Primary Essential hypertension Unspecified essential hypertension Autonomic dysfunction Obstructive sleep apnea syndrome Obstructive sleep apnea (adult) (pediatric) Primary hypertension Unspecified essential hypertension documented in this encounter [facility] Work Phone: Evaluation note* Diagnosis Autoimmune disease (CMS/HCC)- Primary Autoimmune disease, not elsewhere classified Autonomic dysfunction Lumbosacral radiculopathy Thoracic or lumbosacral neuritis or radiculitis, unspecified Bilateral leg weakness Muscle weakness (generalized) [facility] [place] [facility] Diagnosis Shortness of breath- Primary Paroxysmal supraventricular tachycardia PAC (premature atrial contraction) Supraventricular premature beats Current smoker Systemic lupus erythematosus, unspecified SLE type, unspecified organ involvement status (CMS/HCC) Palpitations Obstructive sleep apnea syndrome Obstructive sleep apnea (adult) (pediatric) Morbid obesity (CMS/HCC) Morbid obesity Bilateral lower extremity edema documented in this encounter [facility] Work Phone: Evaluation note* Diagnosis 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 Other vitamin B12 deficiency anemia Elevated sed rate Elevated sedimentation rate documented in this encounter [facility] [place] [facility]* Diagnosis Systemic lupus erythematosus with other organ involvement (HCC)- Primary documented in this encounter [facility] general Narrative - Reported* Type Description Date Medical History hyperlipidemia Medical History insulin resistance Medical History CMV Surgical History cyst removal pilonidal Surgical History D&C Hospitalization History [facility] Other Reason for referral (narrative)* Diagnostic Procedure Only (Routine) - Pending Review Specialty Diagnoses / Procedures Referred By Contac t Referred To Contact XR IMAGING Diagnoses Steroid-induced osteoporosis Procedures DXA-FOREARM SKELETON DXA BONE DENSITY STUDY 1/>SITES APPENDICLR Lynne Perera MD [address] [place] [address] [place] [address] Referral ID Status Reason Start Date Expiration Date Visits Requested Visits Authorized [id number] Pending Review Auto-Generat ed Referral 02/04/2023 03/05/2024 1 1 [facility] for referral (narrative)* Consultation (Routine) - Authorized Specialty Diagnoses / Procedures Referred By Contac t Referred To Contact Cardiology Diagnoses Irregular heart rate Essential hypertension Autonomic dysfunction Obstructive sleep apnea syndrome Primary hypertension Procedures Follow Up In Cardiology Michelle Britton APRN-CNP [address] [facility] [address] [place] [address] Aurora Patel MD [address] [address] Referral ID Status Reason Start Date Expiration Date V isits Requested Visits Authorized [id number] Authorized 06/09/2023 06/08/2024 1 1 * Cardiovascular (Routine) - Pending Review Specialty Diagnoses / Procedures Referred By Contac t Referred To Contact Cardiology Diagnoses Irregular heart rate Procedures 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 Michelle Britton APRN-CNP [address] [place] [address] Referral ID Status Reason Start Date Expiration Date V isits Requested Visits Authorized Pending Review 06/09/2023 06/08/2024 1 1 * CV Imaging (Routine) - Pending Review Specialty Diagnoses / Procedures Referred By Contac t Referred To Contact Cardiology Diagnoses Irregular heart rate Obstructive sleep apnea syndrome Procedures Transthoracic Echo (TTE) Complete VA ECHO TTHRC R-T 2D W/WOM-MODE COMPL SPEC&COLR D Michelle Britton APRN-WIDE PIECE GOODS INSPECTOR [address] [place] [address] Referral ID Status Reason Start Date Expiration Date Visits Requested Visits Authorized [id number] Pending Review Perform Procedure 06/09/2023 06/08/2024 1 1 * Cardiovascular (Routine) - Authorized Specialty Diagnoses / Procedures Referred By Contac t Referred To Contact Diagnoses Irregular heart rate Procedures ECG 12 Lead Michelle Britton APRN-CNP [address] [facility] [address] [place] [address] Referral ID Status Reason Start Date Expiration Date V isits Requested Visits Authorized [id number] Authorized 06/09/2023 06/08/2024 1 1 [facility] Work Phone: Summary Purpose Family History No Family History Records FoundNo Family History Records FoundNo Family History Records FoundNo Family History Records FoundNo Family History Records FoundNo Family History Records FoundNo Family History Records FoundNo Family History Records FoundNo Family History Records Found Advance Directives No Advanced Directives Records FoundDocuments on File Type Date Recorded Patient Aluminum Container Tester Expl anation ACP-Advance Directive ACP-Power of Lead Android Developer Latest Code Status on File Code Status Date Activated Date Inactivated Comments Full Code 10/07/2020 8:32 AM Documents on File Type Date Recorded Patient Aluminum Container Tester Expl anation Advance Directive(s) 09/13/2015 8:36 AM Reason for Referral Specialty Diagnoses / Procedures Referred By Contac t Referred To Contact Diagnoses Paroxysmal supraventricular tachycardia PAC (premature atrial contraction) Procedures ECG 12 Lead Lois Holm MD [address] [facility] 2, [address] [place] [address] Referral ID Status Reason Start Date Expiration Date V isits Requested Visits Authorized [id number] Authorized 07/13/2023 07/12/2024 1 1 Specialty Diagnoses / Procedures Referred By Contac t Referred To Contact Cardiology Diagnoses Shortness of breath Paroxysmal supraventricular tachycardia PAC (premature atrial contraction) Procedures Follow Up In Cardiology Lois Holm MD [address] [address] Lois Holm MD [address] [facility] 2, [facility] [address] [place] [address] Referral ID Status Reason Start Date Expiration Date V isits Requested Visits Authorized [id number] Authorized 07/13/2023 07/12/2024 1 1 Specialty Diagnoses / Procedures Referred By Contac t Referred To Contact Diagnoses Obesity, Class III, BMI 40-49.9 (morbid obesity) (HCC) Pre-diabetes Christie Phan MD [address] [place], [place] [id number] Referral ID Status Reason Start Date Expiration Date Visits Re quested Visits Authorized [id number] Closed 1 1 Specialty Diagnoses / Procedures Referred By Contac t Referred To Contact Diagnoses Wound healing, delayed Procedures CONSULT TO MEDICAL GENETICS - GENERAL OFFICE/OUTPATIENT [facility] 60-74 MINUTES MEDICAL GENETICS COUNSELING EACH 30 MINUTES Misty Nelson MD [facility] [place] [phone] [facility] [place] [address] [place] [address] Referral ID Status Reason Start Date Expiration Date Visits Requested Visits Authorized [id number] Authorized PCP Requested Referral Auto-Generate d Referral 2 03/10/2023 1 1 Specialty Diagnoses / Procedures Referred By Contac t Referred To Contact Neurology Diagnoses POTS (postural orthostatic tachycardia syndrome) Procedures CONSULT TO NEUROLOGY OFFICE/OUTPATIENT [facility] 60-74 MINUTES Christie Phan MD [address] [place] [address] Referral ID Status Reason Start Date Expiration Date Visits Requested Visits Authorized [id number] Authorized PCP Requested Referral 2 03/12/2023 1 1 Specialty Diagnoses / Procedures Referred By Contac t Referred To Contact Immunology Diagnoses Raised level of immunoglobulins Procedures CONSULT TO IMMUNOLOGY OFFICE/OUTPATIENT [facility] 60-74 MINUTES Christie Phan MD [address] [place], [place] [phone] Referral ID Status Reason Start Date Expiration Date V isits Requested Visits Authorized [id number] Closed PCP Requested Referral 03/09/2022 03/09/2023 1 1 Specialty Diagnoses / Procedures Referred By Contac t Referred To Contact NEUROLOGICAL MOBILE Diagnoses Somnolence, daytime Snoring Procedures HOME SLEEP APNEA TEST (HSAT) SLEEP STD AIRFLOW HRT RATE&O2 SAT EFFORT UNATT Christie Phan MD [address] [place] [phone] Neurological [place] [address] [place] [address] Referral ID Status Reason Start Date Expiration Date Visits Requested Visits Authorized [id number] Authorized Auto-Generat ed Referral 2 03/09/2023 1 1 Specialty Diagnoses / Procedures [facility] Referred To Contact Diagnoses Somnolence, daytime Chronic fatigue and malaise Obesity, unspecified classification, unspecified obesity type, unspecified whether serious comorbidity present Procedures CONSULT TO LIFESTYLE MEDICINE MD OFFICE/OUTPATIENT [facility] 60-74 MINUTES Jose Najera MD [address] [place] [address] [place] [address] Referral ID Status Reason Start Date Expiration Date V isits Requested Visits Authorized [id number] Closed PCP Requested Referral 03/04/2022 03/04/2023 1 1 Specialty Diagnoses / Procedures [facility] Referred To Contact Diagnoses Somnolence, daytime Snoring Procedures CONSULT TO SLEEP MEDICINE - ADULT OFFICE/OUTPATIENT [facility] 60-74 MINUTES Jose Najera MD [address] [place] [address] [place] [address] Referral ID Status Reason Start Date Expiration Date Visits Requested Visits Authorized [id number] Authorized PCP Requested Referral 2 03/04/2023 1 [...] section and content) DATE CREATED AUTHOR 09/20/2018 [facility] DATE CREATED AUTHOR AUTHOR'S ORGANIZ ATION 09/23/2018 [facility] DATE CREATED AUTHOR AUTHOR'S ORGANIZ ATION 12/10/2018 [facility] DATE CREATED AUTHOR AUTHOR'S ORGANIZ ATION 01/13/2019 [facility] DATE CREATED AUTHOR AUTHOR'S ORGANIZ ATION 06/28/2021 [facility] DATE CREATED AUTHOR AUTHOR'S ORGANIZ ATION 10/01/[address] [facility] p[facility] DATE CREATED AUTHOR AUTHOR'S ORGANIZ ATION 07/14/2023 [facility] DATE CREATED AUTHOR AUTHOR'S ORGANIZ ATION 07/23/2023 [facility] DATE CREATED AUTHOR AUTHOR'S ORGANIZ ATION 07/23/2023 [facility] [place] [facility] Reason for Visit (unrecogniz ed section and content) Status Reason Specialty Diagnoses / Procedures Referre d By Contact Referred To Contact [facility] Reason Comments Pain ongoing generalized pain. [...] HIGH MDM 60-74 MINUTES Jose Najera MD [address] [place] [address] [place] [address] Referral ID Status Reason Start Date Expiration Date V isits Requested Visits Authorized [id number] Closed PCP Requested Referral 03/04/2022 03/04/2023 1 1 Reason Comments High Total serum IgM Anemia Reason Comments Consult Specialty Diagnoses / Procedures Referred By Contac t Referred To Contact Immunology Diagnoses Raised level of immunoglobulins Procedures CONSULT TO IMMUNOLOGY OFFICE/OUTPATIENT NEW HIGH MDM 60-74 MINUTES Christie Phan MD [address] [place] [address] Referral ID Status Reason Start Date Expiration Date V isits Requested Visits Authorized [id number] Closed PCP Requested Referral 03/09/2022 03/09/2023 1 1 Reason Comments Pneumovax Reason Comments Refill Request Reason Comments 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 Reason Comments Future Appointment Scheduling [...] rate Procedures ECG 12 Lead Michelle Britton, GRADUATE STUDIES DEAN-WIDE PIECE GOODS INSPECTOR [address] [facility] [address] [place] [address] Referral ID Status Reason Start Date Expiration Date V isits Requested Visits Authorized [id number] Authorized 06/09/2023 06/08/2024 1 1 Reason Comments New Patient Visit Leg Swelling, test r esults from [place] Specialty Diagnoses / Procedures Referred By Nahid t Referred To Contact Diagnoses Paroxysmal supraventricular tachycardia PAC (premature atrial contraction) Procedures ECG 12 Lead Lois Holm MD [address] [facility] 2, [address] [place] [address] Referral ID Status Reason Start Date Expiration Date V isits Requested Visits Authorized [id number] Authorized 07/13/2023 07/12/2024 1 1 Reason Onset [...] or prosecute any alcohol or drug abuse patient.[facility] Hospital[facility] the event this information is protected by the Federal Confidentiality of Alcohol and Drug Abuse Patient Records regulations: The Federal rules restrict any use of the information to criminally investigate or prosecute any alcohol or drug abuse patient.[facility] HospitalIn the event this information is protected by the Federal Confidentiality of Alcohol and Drug Abuse Patient Records regulations: The Federal rules restrict any use of the information to criminally investigate or prosecute any alcohol or drug abuse patient.[facility] HospitalIn the event this information is protected by the Federal Confidentiality of Alcohol and Drug Abuse Patient Records regulations: The Federal rules restrict any use of the information to criminally investigate or prosecute any alcohol or drug abuse patient.[facility] HospitalIn the event this information is protected by the Federal Confidentiality of Alcohol and Drug Abuse Patient Records regulations: The Federal rules restrict any use of the information to criminally investigate or prosecute any alcohol or drug abuse patient.[facility] HospitalIn the event this information is protected by the Federal Confidentiality of Alcohol and Drug Abuse Patient Records regulations: The Federal rules restrict any use of the information to criminally investigate or prosecute any alcohol or drug abuse patient.[facility] HospitalIn the event this information is protected by the Federal Confidentiality of Alcohol and Drug Abuse Patient Records regulations: The Federal rules restrict any use of the information to criminally investigate or prosecute any alcohol or drug abuse patient.[facility] HospitalIn the event this information is protected by the Federal Confidentiality of Alcohol and Drug Abuse Patient Records regulations: The Federal rules restrict any use of the information to criminally investigate or prosecute any alcohol or drug abuse patient.[facility] HospitalIn the event this information is protected by the Federal Confidentiality of Alcohol and Drug Abuse Patient Records regulations: The Federal rules restrict any use of the information to criminally investigate or prosecute any alcohol or drug abuse patient.[facility] HospitalIn the event this information is protected by the Federal Confidentiality of Alcohol and Drug Abuse Patient Records regulations: The Federal rules restrict any use of the information to criminally investigate or prosecute any alcohol or drug abuse patient.[facility] HospitalIn the event this information is protected by the Federal Confidentiality of Alcohol and Drug Abuse Patient Records regulations: The Federal rules restrict any use of the information to criminally investigate or prosecute any alcohol or drug abuse patient.[facility] HospitalIn the event this information is protected by the Federal Confidentiality of Alcohol and Drug Abuse Patient Records regulations: The Federal rules restrict any use of the information to criminally investigate or prosecute any alcohol or drug abuse patient.[facility] HospitalIn the event this information is protected by the Federal Confidentiality of Alcohol and Drug Abuse Patient Records regulations: The Federal rules restrict any use of the information to criminally investigate or prosecute any alcohol or drug abuse patient.[facility] HospitalIn the event this information is protected by the Federal Confidentiality of Alcohol and Drug Abuse Patient Records regulations: The Federal rules restrict any use of the information to criminally investigate or prosecute any alcohol or drug abuse patient.[facility] HospitalIn the event this information is protected by the Federal Confidentiality of Alcohol and Drug Abuse Patient Records regulations: The Federal rules restrict any use of the information to criminally investigate or prosecute any alcohol or drug abuse patient.[facility] HospitalIn the event this information is protected by the Federal Confidentiality of Alcohol and Drug Abuse Patient Records regulations: The Federal rules restrict any use of the information to criminally investigate or prosecute any alcohol or drug abuse patient.[facility] HospitalIn the event this information is protected by the Federal Confidentiality of Alcohol and Drug Abuse Patient Records regulations: The Federal rules restrict any use of the information to criminally investigate or prosecute any alcohol or drug abuse patient.[facility] HospitalIn the event this information is protected by the Federal Confidentiality of Alcohol and Drug Abuse Patient Records regulations: The Federal rules restrict any use of the information to criminally investigate or prosecute any alcohol or drug abuse patient.[facility] HospitalIn the event this information is protected by the Federal Confidentiality of Alcohol and Drug Abuse Patient Records regulations: The Federal rules restrict any use of the information to criminally investigate or prosecute any alcohol or drug abuse patient.[facility] HospitalIn the event this information is protected by the Federal Confidentiality of Alcohol and Drug Abuse Patient Records regulations: The Federal rules restrict any use of the information to criminally investigate or prosecute any alcohol or drug abuse patient.[facility] HospitalIn the event this information is protected by the Federal Confidentiality of Alcohol and Drug Abuse Patient Records regulations: The Federal rules restrict any use of the information to criminally investigate or prosecute any alcohol or drug abuse patient.[facility] HospitalIn the event this information is protected by the Federal Confidentiality of Alcohol and Drug Abuse Patient Records regulations: The Federal rules restrict any use of the information to criminally investigate or prosecute any alcohol or drug abuse patient.[facility] HospitalIn the event this information is protected by the Federal Confidentiality of Alcohol and Drug Abuse Patient Records regulations: The Federal rules restrict any use of the information to criminally investigate or prosecute any alcohol or drug abuse patient.[facility] HospitalIn the event this information is protected by the Federal Confidentiality of Alcohol and Drug Abuse Patient Records regulations: The Federal rules restrict any use of the information to criminally investigate or prosecute any alcohol or drug abuse patient.[facility] HospitalIn the event this information is protected by the Federal Confidentiality of Alcohol and Drug Abuse Patient Records regulations: The Federal rules restrict any use of the information to criminally investigate or prosecute any alcohol or drug abuse patient.[facility] HospitalIn the event this information is protected by the Federal Confidentiality of Alcohol and Drug Abuse Patient Records regulations: The Federal rules restrict any use of the information to criminally investigate or prosecute any alcohol or drug abuse patient.[facility] HospitalIn the event this information is protected by the Federal Confidentiality of Alcohol and Drug Abuse Patient Records regulations: The Federal rules restrict any use of the information to criminally investigate or prosecute any alcohol or drug abuse patient.[facility] HospitalIn the event this information is protected by the Federal Confidentiality of Alcohol and Drug Abuse Patient Records regulations: The Federal rules restrict any use of the information to criminally investigate or prosecute any alcohol or drug abuse patient.[facility] HospitalIn the event this information is protected by the Federal Confidentiality of Alcohol and Drug Abuse Patient Records regulations: The Federal rules restrict any use of the information to criminally investigate or prosecute any alcohol or drug abuse patient.[facility] HospitalIn the event this information is protected by the Federal Confidentiality of Alcohol and Drug Abuse Patient Records regulations: The Federal rules restrict any use of the information to criminally investigate or prosecute any alcohol or drug abuse patient.[facility] HospitalIn the event this information is protected by the Federal Confidentiality of Alcohol and Drug Abuse Patient Records regulations: The Federal rules restrict any use of the information to criminally investigate or prosecute any alcohol or drug abuse patient.[facility] HospitalIn the event this information is protected by the Federal Confidentiality of Alcohol and Drug Abuse Patient Records regulations: The Federal rules restrict any use of the information to criminally investigate or prosecute any alcohol or drug abuse patient.[facility] HospitalIn the event this information is protected by the Federal Confidentiality of Alcohol and Drug Abuse Patient Records regulations: The Federal rules restrict any use of the information to criminally investigate or prosecute any alcohol or drug abuse patient.[facility] HospitalIn the event this information is protected by the Federal Confidentiality of Alcohol and Drug Abuse Patient Records regulations: The Federal rules restrict any use of the information to criminally investigate or prosecute any alcohol or drug abuse patient.[facility] HospitalIn the event this information is protected by the Federal Confidentiality of Alcohol and Drug Abuse Patient Records regulations: The Federal rules restrict any use of the information to criminally investigate or prosecute any alcohol or drug abuse patient.[facility] HospitalIn the event this information is protected by the Federal Confidentiality of Alcohol and Drug Abuse Patient Records regulations: The Federal rules restrict any use of the information to criminally investigate or prosecute any alcohol or drug abuse patient.[facility] HospitalIn the event this information is protected by the Federal Confidentiality of Alcohol and Drug Abuse Patient Records regulations: The Federal rules restrict any use of the information to criminally investigate or prosecute any alcohol or drug abuse patient.[facility] HospitalIn the event this information is protected by the Federal Confidentiality of Alcohol and Drug Abuse Patient Records regulations: The Federal rules restrict any use of the information to criminally investigate or prosecute any alcohol or drug abuse patient.[facility] HospitalIn the event this information is protected by the Federal Confidentiality of Alcohol and Drug Abuse Patient Records regulations: The Federal rules restrict any use of the information to criminally investigate or prosecute any alcohol or drug abuse patient.[facility] HospitalIn the event this information is protected by the Federal Confidentiality of Alcohol and Drug Abuse Patient Records regulations: The Federal rules restrict any use of the information to criminally investigate or prosecute any alcohol or drug abuse patient.[facility] HospitalIn the event this information is protected by the Federal Confidentiality of Alcohol and Drug Abuse Patient Records regulations: The Federal rules restrict any use of the information to criminally investigate or prosecute any alcohol or drug abuse patient.[facility] HospitalIn the event this information is protected by the Federal Confidentiality of Alcohol and Drug Abuse Patient Records regulations: The Federal rules restrict any use of the information to criminally investigate or prosecute any alcohol or drug abuse patient.[facility] HospitalIn the event this information is protected by the Federal Confidentiality of Alcohol and Drug Abuse Patient Records regulations: The Federal rules restrict any use of the information to criminally investigate or prosecute any alcohol or drug abuse patient.[facility] HospitalIn the event this information is protected by the Federal Confidentiality of Alcohol and Drug Abuse Patient Records regulations: The Federal rules restrict any use of the information to criminally investigate or prosecute any alcohol or drug abuse patient.[facility] HospitalIn the event this information is protected by the Federal Confidentiality of Alcohol and Drug Abuse Patient Records regulations: The Federal rules restrict any use of the information to criminally investigate or prosecute any alcohol or drug abuse patient.[facility] HospitalIn the event this information is protected by the Federal Confidentiality of Alcohol and Drug Abuse Patient Records regulations: The Federal rules restrict any use of the information to criminally investigate or prosecute any alcohol or drug abuse patient.[facility] HospitalIn the event this information is protected by the Federal Confidentiality of Alcohol and Drug Abuse Patient Records regulations: The Federal rules restrict any use of the information to criminally investigate or prosecute any alcohol or drug abuse patient.[facility] HospitalIn the event this information is protected by the Federal Confidentiality of Alcohol and Drug Abuse Patient Records regulations: The Federal rules restrict any use of the information to criminally investigate or prosecute any alcohol or drug abuse patient.[facility] HospitalIn the event this information is protected by the Federal Confidentiality of Alcohol and Drug Abuse Patient Records regulations: The Federal rules restrict any use of the information to criminally investigate or prosecute any alcohol or drug abuse patient.[facility] HospitalIn the event this information is protected by the Federal Confidentiality of Alcohol and Drug Abuse Patient Records regulations: The Federal rules restrict any use of the information to criminally investigate or prosecute any alcohol or drug abuse patient.[facility] HospitalIn the event this information is protected by the Federal Confidentiality of Alcohol and Drug Abuse Patient Records regulations: The Federal rules restrict any use of the information to criminally investigate or prosecute any alcohol or drug abuse patient.[facility] HospitalIn the event this information is protected by the Federal Confidentiality of Alcohol and Drug Abuse Patient Records regulations: The Federal rules restrict any use of the information to criminally investigate or prosecute any alcohol or drug abuse patient.[facility] HospitalIn the event this information is protected by the Federal Confidentiality of Alcohol and Drug Abuse Patient Records regulations: The Federal rules restrict any use of the information to criminally investigate or prosecute any alcohol or drug abuse patient.[facility] HospitalIn the event this information is protected by the Federal Confidentiality of Alcohol and Drug Abuse Patient Records regulations: The Federal rules restrict any use of the information to criminally investigate or prosecute any alcohol or drug abuse patient.[facility] HospitalIn the event this information is protected by the Federal Confidentiality of Alcohol and Drug Abuse Patient Records regulations: The Federal rules restrict any use of the information to criminally investigate or prosecute any alcohol or drug abuse patient.[facility] HospitalIn the event this information is protected by the Federal Confidentiality of Alcohol and Drug Abuse Patient Records regulations: The Federal rules restrict any use of the information to criminally investigate or prosecute any alcohol or drug abuse patient.[facility] HospitalIn the event this information is protected by the Federal Confidentiality of Alcohol and Drug Abuse Patient Records regulations: The Federal rules restrict any use of the information to criminally investigate or prosecute any alcohol or drug abuse patient.[facility] HospitalIn the event this information is protected by the Federal Confidentiality of Alcohol and Drug Abuse Patient Records regulations: The Federal rules restrict any use of the information to criminally investigate or prosecute any alcohol or drug abuse patient.[facility] HospitalIn the event this information is protected by the Federal Confidentiality of Alcohol and Drug Abuse Patient Records regulations: The Federal rules restrict any use of the information to criminally investigate or prosecute any alcohol or drug abuse patient.[facility] HospitalIn the event this information is protected by the Federal Confidentiality of Alcohol and Drug Abuse Patient Records regulations: The Federal rules restrict any use of the information to criminally investigate or prosecute any alcohol or drug abuse patient.[facility] HospitalIn the event this information is protected by the Federal Confidentiality of Alcohol and Drug Abuse Patient Records regulations: The Federal rules restrict any use of the information to criminally investigate or prosecute any alcohol or drug abuse patient.[facility] HospitalIn the event this information is protected by the Federal Confidentiality of Alcohol and Drug Abuse Patient Records regulations: The Federal rules restrict any use of the information to criminally investigate or prosecute any alcohol or drug abuse patient.[facility] HospitalIn the event this information is protected by the Federal Confidentiality of Alcohol and Drug Abuse Patient Records regulations: The Federal rules restrict any use of the information to criminally investigate or prosecute any alcohol or drug abuse patient.[facility] HospitalIn the event this information is protected by the Federal Confidentiality of Alcohol and Drug Abuse Patient Records regulations: The Federal rules restrict any use of the information to criminally investigate or prosecute any alcohol or drug abuse patient.[facility] HospitalIn the event this information is protected by the Federal Confidentiality of Alcohol and Drug Abuse Patient Records regulations: The Federal rules restrict any use of the information to criminally investigate or prosecute any alcohol or drug abuse patient.[facility] HospitalIn the event this information is protected by the Federal Confidentiality of Alcohol and Drug Abuse Patient Records regulations: The Federal rules restrict any use of the information to criminally investigate or prosecute any alcohol or drug abuse patient.[facility] HospitalIn the event this information is protected by the Federal Confidentiality of Alcohol and Drug Abuse Patient Records regulations: The Federal rules restrict any use of the information to criminally investigate or prosecute any alcohol or drug abuse patient.[facility] HospitalIn the event this information is protected by the Federal Confidentiality of Alcohol and Drug Abuse Patient Records regulations: The Federal rules restrict any use of the information to criminally investigate or prosecute any alcohol or drug abuse patient.[facility] Care Teams (unrecognized sec tion and content) Laboratory Secretary Relationship Specialty Start Date End Date Fernie, Gay, GRADUATE [employer]UDIES DEAN.[employer] INSPECTOR [address] 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 [place] [address] PCP - General Family Medicine 10/24/21 Madelaine Ferris MD [address] [facility] [place] [address] Referring Family Medicine 02/12/22 Laboratory Secretary Relationship Specialty Start Date End Date Madelaine Ferris MD [address] [facility] [place] [address] PCP - General Family Medicine 02/27/22 Madelaine Ferris MD [address] [facility] [place] [address] Referring Family Medicine 02/12/22 Laboratory Secretary Relationship Specialty Start Date End Date Madelaine Ferris MD [address] [facility] [place] [address] PCP - General Family Medicine 02/27/22 Madelaine Ferris MD [address] [facility] [place] [address] Referring Family Medicine 02/12/22 Laboratory Secretary Relationship Specialty Start Date End Date Madelaine Ferris MD [address] [facility] [place] [address] PCP - General Family Medicine 02/27/22 Madelaine Ferris MD [address] [facility] [place] [address] Referring Family Medicine 02/12/22 Laboratory Secretary Relationship Specialty Start Date End Date Madelaine Ferris MD [address] [facility] [place] [address] PCP - General Family Medicine 02/27/22 Madelaine Ferris MD [address] [facility] [place] [address] Referring Family Medicine 02/12/22 Laboratory Secretary Relationship Specialty Start Date End Date Madelaine Ferris MD [address] [facility] [place] [address] PCP - General Family Medicine 02/27/22 Madelaine Ferris MD [address] [facility] [place] [address] Referring Family Medicine 02/12/22 Laboratory Secretary Relationship Specialty Start Date End Date Madelaine Ferris MD [address] [facility] [place] [address] PCP - General Family Medicine 02/27/22 Madelaine Ferris MD [address] [facility] [place] [address] Referring Family Medicine 02/12/22 Laboratory Secretary Relationship Specialty Start Date End Date Madelaine Ferris MD [address] [facility] [place] [address] PCP - General Family Medicine 02/27/22 Madelaine Ferris MD [address] [facility] [place] [address] Referring Family Medicine 02/12/22 Laboratory Secretary Relationship Specialty Start Date End Date Madelaine Ferris MD [address] [facility] [place] [address] PCP - General Family Medicine 02/27/22 Madelaine Ferris MD [address] [facility] [place] [address] Referring Family Medicine 02/12/22 Laboratory Secretary Relationship Specialty Start Date End Date Madelaine Ferris MD [address] [facility] [place] [address] PCP - General Family Medicine 02/27/22 Madelaine Ferris MD [address] [facility] [place] [address] Referring Family Medicine 02/12/22 Laboratory Secretary Relationship Specialty Start Date End Date Madelaine Ferris MD [address] [facility] [place] [address] PCP - General Family Medicine 02/27/22 Madelaine Ferris MD [address] [facility] [place] [address] Referring Family Medicine 02/12/22 Laboratory Secretary Relationship Specialty Start Date End Date Madelaine Ferris MD [address] [facility] [place] [address] PCP - General Family Medicine 02/27/22 Madelaine Ferris MD [address] [facility] [place] [address] Referring Family Medicine 02/12/22 Laboratory Secretary Relationship Specialty Start Date End Date Madelaine Ferris MD [address] [facility] [place] [address] PCP - General Family Medicine 02/27/22 Madelaine Ferris MD [address] [facility] [place] [address] Referring Family Medicine 02/12/22 Laboratory Secretary Relationship Specialty Start Date End Date Madelaine Ferris MD [address] [facility] [place] [address] PCP - General Family Medicine 02/27/22 Madelaine Ferris MD [address] [facility] [place] [address] Referring Family Medicine 02/12/22 Laboratory Secretary Relationship Specialty Start Date End Date Madelaine Ferris MD [address] [facility] [place] [address] PCP - General Family Medicine 02/27/22 Madelaine Ferris MD [address] [facility] [place] [address] Referring Family Medicine 02/12/22 Laboratory Secretary Relationship Specialty Start Date End Date Madelaine Ferris MD [address] [facility] [place] [address] PCP - General Family Medicine 02/27/22 Madelaine Ferris MD [address] [facility] [place] [address] Referring Family Medicine 02/12/22 Laboratory Secretary Relationship Specialty Start Date End Date Madelaine Ferris MD [address] [facility] [place] [address] PCP - General Family Medicine 02/27/22 Madelaine Ferris MD [address] [facility] [place] [address] Referring Family Medicine 02/12/22 Laboratory Secretary Relationship Specialty Start Date End Date Madelaine Ferris MD [address] [facility] [place] [address] PCP - General Family Medicine 02/27/22 Madelaine Ferris MD [address] [facility] [place] [address] Referring Family Medicine 02/12/22 Laboratory Secretary Relationship Specialty Start Date End Date Madelaine Ferris MD [address] [facility] [place] [address] PCP - General Family Medicine 02/27/22 Madelaine Ferris MD [address] [facility] [place] [address] Referring Family Medicine 02/12/22 Laboratory Secretary Relationship Specialty Start Date End Date Madelaine Ferris MD [address] [facility] [place] [address] PCP - General Family Medicine 02/27/22 Madelaine Ferris MD [address] [facility] [place] [address] Referring Family Medicine 02/12/22 Laboratory Secretary Relationship Specialty Start Date End Date Madelaine Ferris MD [address] [facility] [place] [address] PCP - General Family Medicine 02/27/22 Madelaine Ferris MD [address] [facility] [place] [address] Referring Family Medicine 02/12/22 Laboratory Secretary Relationship Specialty Start Date End Date Madelaine Ferris MD [address] [facility] [place] [address] PCP - General Family Medicine 02/27/22 Madelaine Ferris MD [address] [facility] [place] [address] Referring Family Medicine 02/12/22 Laboratory Secretary Relationship Specialty Start Date End Date Madelaine Ferris MD PCP - General Family Medicine 02/27/22 Madelaine Ferris MD Referring Family Medicine 02/12/22 Laboratory Secretary Relationship Specialty Start Date End Date Madelaine Ferris MD PCP - General Family Medicine 02/27/22 Madelaine eFrris MD Referring Family Medicine 02/12/22 Laboratory Secretary Relationship Specialty Start Date End Date Madelaine Ferris MD PCP - General Family Medicine 02/27/22 Madelaine Ferris MD Referring Family Medicine 02/12/22 Laboratory Secretary Relationship Specialty Start Date End Date Madelaine Ferris MD PCP - General Family Medicine 02/27/22 Madelaine Ferris MD Referring Family Medicine 02/12/22 Laboratory Secretary Relationship Specialty Start Date End Date Madelaine Ferris MD PCP - General Family Medicine 02/27/22 Madelaine Ferris MD Referring Family Medicine 02/12/22 Laboratory Secretary Relationship Specialty Start Date End Date Madelaine Ferris MD PCP - General Family Medicine 02/27/22 Maedlaine Ferris MD Referring Family Medicine 02/12/22 Laboratory Secretary Relationship Specialty Start Date End Date Madelaine Ferris MD PCP - General Family Medicine 02/27/22 Madelaine Ferris MD Referring Family Medicine 02/12/22 Laboratory Secretary Relationship Specialty Start Date End Date Madelaine Ferris MD PCP - General Family Medicine 02/27/22 Madelaine Ferris MD Referring Family Medicine 02/12/22 Laboratory Secretary Relationship Specialty Start Date End Date Madelaine Ferris MD PCP - General Family Medicine 02/27/22 Madelaine Ferris MD Referring Family Medicine 02/12/22 Laboratory Secretary Relationship Specialty Start Date End Date Madelaine Ferris MD PCP - General Family Medicine 02/27/22 Madelaine Ferris MD Referring Family Medicine 02/12/22 Laboratory Secretary Relationship Specialty Start Date End Date Madelaine Ferris MD PCP - General Family Medicine 02/27/22 Madelaine Ferris MD Referring Family Medicine 02/12/22 Laboratory Secretary Relationship Specialty Start Date End Date Madelaine Ferris MD PCP - General Family Medicine 02/27/22 Madelaine Ferris MD Referring Family Medicine 02/12/22 Laboratory Secretary Relationship Specialty Start Date End Date Madelaine Ferris MD PCP - General Family Medicine 02/27/22 Madelaine Ferris MD Referring Family Medicine 02/12/22 Laboratory Secretary Relationship Specialty Start Date End Date Madelaine Ferris MD PCP - General Family Medicine 02/27/22 Madelaine Ferris MD Referring Family Medicine 02/12/22 Laboratory Secretary Relationship Specialty Start Date End Date Madelaine Ferris MD PCP - General Family Medicine 02/27/22 Madelaine Ferris MD Referring Family Medicine 02/12/22 Laboratory Secretary Relationship Specialty Start Date End Date Madelaine Ferris MD PCP - General Family Medicine 02/27/22 Madelaine Ferris MD Referring Family Medicine 02/12/22 Laboratory Secretary Relationship Specialty Start Date End Date Madelaine Ferris MD PCP - General Family Medicine 02/27/22 Madelaine Ferris MD Referring Family Medicine 02/12/22 Laboratory Secretary Relationship Specialty Start Date End Date Madelaine Ferris MD PCP - General Family Medicine 02/27/22 Madelaine Ferris MD Referring Family Medicine 02/12/22 Laboratory Secretary Relationship Specialty Start Date End Date Madelaine Ferris MD PCP - General Family Medicine 02/27/22 Madelaine Ferris MD Referring Family Medicine 02/12/22 Laboratory Secretary Relationship Specialty Start Date End Date Madelaine Ferris MD PCP - General Family Medicine 02/27/22 Madelaine Ferris MD Referring Family Medicine 02/12/22 Laboratory Secretary Relationship Specialty Start Date End Date Madelaine Ferris MD PCP - General Family Medicine 02/27/22 Madelaine Ferris MD Referring Family Medicine 02/12/22 Laboratory Secretary Relationship Specialty Start Date End Date Madelaine Ferris MD PCP - General Family Medicine 02/27/22 Madelaine Ferris MD Referring Family Medicine 02/12/22 Laboratory Secretary Relationship Specialty Start Date End Date Madelaine Ferris MD PCP - General Family Medicine 02/27/22 Madelaine Ferris MD Referring Family Medicine 02/12/22 Laboratory Secretary Relationship Specialty Start Date End Date Madelaine Ferris MD PCP - General Family Medicine 02/27/22 Madelaine Ferris MD Referring Family Medicine 02/12/22 Laboratory Secretary Relationship Specialty Start Date End Date Madelaine Ferris MD PCP - General Family Medicine 02/27/22 Madelaine Ferris MD Referring Family Medicine 02/12/22 Laboratory Secretary Relationship Specialty Start Date End Date Madelaine Ferris MD PCP - General Family Medicine 02/27/22 Madelaine Ferris MD Referring Family Medicine 02/12/22 Laboratory Secretary Relationship Specialty Start Date End Date Charles MitchellDO [address] [place] [address] PCP - General 10/22/18 Michelle Britton APRN-[employer] [address] [address] Nurse Practitioner Cardiology 06/08/23 Laboratory Secretary Relationship Specialty Start Date End Date Gay Enciso GRADUATE STUDIES DEAN-[employer] [address] [place] [address] PCP - General 07/13/23 Michelle Britton [employer] [address] [address] Nurse Practitioner Cardiology 06/08/23 Aurora Patel MD [address] [address] Consulting Physician Cardiology 06/23/23 Inactive Administered Medications [...] BE BASED ON THE PRIMARY CLINICAL RECORDS. [facility] [facility]. provides no warranty or guarantee of the accuracy or completeness of information in this document.
[2023-08-06 04:07] LABS: Thyroid Peroxidase (TPO) Ab 13 IU/mL (0-34)
== END 2023-08-05 11:47 | disposition home or self-care (01) ==
LOC: LAB 11:48
PROVIDERS: PCP Nurse Practitioner Family; Visit Provider Nurse Practitioner Family
DX: F41.9 Anxiety disorder, unspecified (principal)
CPT/HCPCS: 36415; 86376

== ENCOUNTER 2023-08-12 08:32 | Outpatient (OUT) | payer OTHER, SELFPAY ==
[2023-08-12 15:57] LABS: C. Difficile PCR NEGATIVE (NEGATIVE)
== END 2023-08-12 08:33 | disposition home or self-care (01) ==
LOC: LAB 08-16 08:32
PROVIDERS: PCP Nurse Practitioner Family; Visit Provider Nurse Practitioner Family
DX: G62.9 Polyneuropathy, unspecified (principal); R19.7 Diarrhea, unspecified
CPT/HCPCS: 36415; 82784; 86231; 87493

== ENCOUNTER 2023-08-12 10:49 | Outpatient (OUT) | payer OTHER, SELFPAY ==
[2023-08-13 05:08] LABS: Immunoglobulin G, Qn 455 mg/dL (586-1602); Immunoglobulin M, Q 388 mg/dL (26-217)
== END 2023-08-12 10:50 | disposition home or self-care (01) ==
LOC: LAB 10:49
PROVIDERS: PCP Nurse Practitioner Family; Visit Provider Psychiatry & Neurology Neurology
DX: G62.9 Polyneuropathy, unspecified (principal)
CPT/HCPCS: 36415; 82784; 86231

== ENCOUNTER 2023-08-18 14:38 | Outpatient (OUT) | payer OTHER, SELFPAY ==
--- NOTE | 2023-08-18 14:52 | XR_ITS ---
The [address] [address] Patient Name: JONES HALEY MRN: [id number] date: 1980 Sex: F Assigned Patient Location: [facility] Current Patient Location: Accession/Order Number: [id number] Exam Date: 08/18/2023 14:45 Report Date: 08/19/2023 07:27 At the request of: SAMSON ENCISO Procedure: XR chest 2V EXAMINATION: XR chest 2V HISTORY: shortness of breath R06.02 COMPARISON: No relevant comparison available. TECHNIQUE: PA and lateral FINDINGS: LUNGS: No significant pulmonary parenchymal abnormalities. VASCULATURE: No increased pulmonary vasculature. PLEURA: No pneumothorax, effusion, or pleural thickening. CARDIAC: No cardiomegaly or cardiac silhouette abnormality. MEDIASTINUM: No visible mass or adenopathy. BONES: No fracture or visible bone lesion. OTHER: Negative. XR/XR chest 2V IMPRESSION: No acute cardiopulmonary process Electronically authenticated by: AURORA SHAIKH Date: 08/19/2023 07:27
== END 2023-08-18 14:39 | disposition home or self-care (01) ==
LOC: RAD 14:38
PROVIDERS: PCP Nurse Practitioner Family; Visit Provider Nurse Practitioner Family
DX: R06.02 Shortness of breath (principal)
CPT/HCPCS: 71046

== ENCOUNTER 2023-08-19 12:43 | Outpatient (OUT) | payer OTHER, SELFPAY ==
[2023-08-19 12:58] LABS: Hemoglobin 13.8 g/dL (12.0-16.0)
--- NOTE | 2023-08-19 14:13 | RT_ITS ---
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 Findings were considered accurate and reproducible. No bronchodilator was administered due to normal spirometric values. Spirometry: -FEV1/FVC: Normal @ 86% -FEV1: Normal @ 87% -FVC: Low normal @ 82% Lung volumes by plethysmography: -RV: Normal @ 88% -TLC: Normal @ 89% Diffusion capacity: -DLCO: Normal @ 90% when corrected for Hb 13.8g/dL Flow-volume loop: -Normal shape Impressions: -Normal PFT. If asthma remains in the differential, may consider methacholine challenge testing. Clinical correlation required. Electronically Signed On 08-25-2023 14:18:55 EDT by Nik Duran
== END 2023-08-19 12:44 | disposition home or self-care (01) ==
LOC: CARD 12:43
PROVIDERS: PCP Nurse Practitioner Family; Visit Provider Nurse Practitioner Family
DX: R06.02 Shortness of breath (principal)
CPT/HCPCS: 36415; 85018; 94010; 94726; 94729; 99407

== ENCOUNTER 2023-09-07 10:08 | Outpatient (OUT) | payer OTHER, SELFPAY ==
--- NOTE | 2023-09-07 10:14 | CT_ITS ---
[address] [address] Patient Name: JONES HALEY MRN: [id number] date: 1980 Sex: F Assigned Patient Location: CT Current Patient Location: Accession/Order Number: [id number] Exam Date: 09/07/2023 10:20 Report Date: 09/08/2023 07:15 At the request of: SAMSON ENCISO Procedure: CT soft tissue neck wo con EXAMINATION: CT soft tissue neck wo con HISTORY: Neck Pain M54.2 COMPARISON: No relevant comparison available. TECHNIQUE: Axial, Coronal, and Sagittal CT images created without IV contrast. Dose reduction techniques were achieved by using automated exposure control and/or adjustment of mA and/or kV according to patient size and/or use of iterative reconstruction technique. FINDINGS: NASOPHARYNX: No asymmetry of the fossae of Rosenmuller and torus tubarius. ORAL CAVITY: No visible mass. OROPHARYNX: No asymmetry of the facial and lingual tonsils. HYPOPHARYNX: No mass or other visible lesion. LARYNX: No mass or asymmetry of the vocal cords. SINUSES: No significant fluid or mucosal thickening. NECK GLADS: No visible abnormality of the parotid, submandibular, and thyroid glands. LYMPH NODES: No pathological-appearing or enlarged lymph nodes. VASCULATURE: No suspicious abnormality. BONES: No significant osseous lesions. OTHER: A 6 mm soft tissue inferior right maxillary sinus, mucous retention cyst favored Limited noncontrast exam CT/CT soft tissue neck wo con IMPRESSION: Limited noncontrast exam, no acute abnormality observed Electronically authenticated by: AURORA SHAIKH Date: 09/08/2023 07:15
== END 2023-09-07 10:09 | disposition home or self-care (01) ==
LOC: CT 10:09
PROVIDERS: PCP Nurse Practitioner Family; Visit Provider Nurse Practitioner Family
DX: M54.2 Cervicalgia (principal)
CPT/HCPCS: 70490

== ENCOUNTER 2023-09-23 14:33 | Outpatient (OUT) | payer OTHER, SELFPAY ==
--- NOTE | 2023-09-23 15:10 | MM_ITS ---
Patient Name: JONES HALEY MR#: [id number] : 1980 Exam Date: 09/23/2023 Ordering Doctor: SAMSON ENCISO CNP RADIOLOGY REPORT PROCEDURE: MM TOMOSYNTHESIS SCREENING BI COMPARISON: MG MAMM SCREEN 3D MARK CAD, 09/01/2022. MG MAMM SCREEN 3D MARK CAD, 12/05/2020. INDICATIONS: screening Calculator Name NCI Breast Cancer Risk Assessment Tool 5 Year Breast Cancer Risk 0.90% Lifetime Breast Cancer Risk 13.40% Personal Breast Cancer No Personal Ovarian Cancer No Treatments None Family Cancers Grandmother-paternal with breast cancer at age ~67; Aunt-paternal with breast cancer at age ~50; Father with stomach cancer at age 56. LOCATION: The [facility] BREAST COMPOSITION: There are scattered areas of fibroglandular density. FINDINGS: DIAGNOSTIC CATEGORY 2--BENIGN FINDING. NO CHANGE FROM COMPARISON. Scattered benign-appearing nodules are present. Scattered benign-appearing calcifications are present. Scattered benign-appearing lymph nodes are present. RIGHT BREAST: No significant suspicious finding. LEFT BREAST: No significant suspicious finding. RECOMMENDATIONS: ROUTINE MAMMOGRAM AND CLINICAL EVALUATION IN 12 MONTHS. PLEASE NOTE: A NORMAL MAMMOGRAM DOES NOT EXCLUDE THE POSSIBILITY OF BREAST CANCER. A CLINICALLY SUSPICIOUS PALPABLE LUMP SHOULD BE BIOPSIED. Dictated by: Kenneth Donato MD on 09/24/2023 at 08:44 Approved by: Kenneth Donato MD on 09/24/2023 at 08:46
== END 2023-09-23 14:34 | disposition home or self-care (01) ==
LOC: MAMMO 14:33
PROVIDERS: PCP Nurse Practitioner Family; Visit Provider Nurse Practitioner Family
DX: Z12.31 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 screening mammogram for malignant neoplasm of breast (principal); Z80.3 Family history of malignant neoplasm of breast; Z80.0 Family history of malignant neoplasm of digestive organs
CPT/HCPCS: 77063; 77067

== ENCOUNTER 2023-09-28 14:36 | Outpatient (OUT) | payer OTHER, SELFPAY ==
--- NOTE | 2023-09-28 14:40 | XR_ITS ---
The [address] [address] Patient Name: JONES HALEY MRN: [id number] date: 1980 Sex: F Assigned Patient Location: [facility] Current Patient Location: Accession/Order Number: [id number] Exam Date: 09/28/2023 14:41 Report Date: 09/29/2023 07:22 At the request of: SHARRON ROGERS Procedure: XR lumbar spine min 4V EXAMINATION: XR thoracic spine 3V, XR lumbar spine min 4V HISTORY: bilateral leg weakness R29.898, muscle spasm M62.838 COMPARISON: No relevant comparison available. FINDINGS: BONES: Normal alignment with no acute fracture or spondylolisthesis. Minimal dextrocurvature centered at L2-L3. Minimal degenerative spondylosis mild facet osteoarthropathy most significant at L5-S1 DISC SPACES: Normal. No significant disc height narrowing, subluxation, or endplate abnormality. PARASPINOUS: Negative. No paraspinous abnormality is seen. OTHER: Negative. XR/XR lumbar spine min 4V IMPRESSION: Minimal dextrocurvature Minimal degenerative change most significant at L5-S1 Electronically authenticated by: AURORA SHAIKH Date: 09/29/2023 07:22
--- NOTE | 2023-09-28 14:41 | XR_ITS ---
The [address] [address] Patient Name: JONES HALEY MRN: [id number] date: 1980 Sex: F Assigned Patient Location: [facility] Current Patient Location: Accession/Order Number: [id number] Exam Date: 09/28/2023 14:43 Report Date: 09/29/2023 07:22 At the request of: SHARRON ROGERS Procedure: XR thoracic spine 3V EXAMINATION: XR thoracic spine 3V, XR lumbar spine min 4V HISTORY: bilateral leg weakness R29.898, muscle spasm M62.838 COMPARISON: No relevant comparison available. FINDINGS: BONES: Normal alignment with no acute fracture or spondylolisthesis. Minimal dextrocurvature centered at L2-L3. Minimal degenerative spondylosis mild facet osteoarthropathy most significant at L5-S1 DISC SPACES: Normal. No significant disc height narrowing, subluxation, or endplate abnormality. PARASPINOUS: Negative. No paraspinous abnormality is seen. OTHER: Negative. XR/XR thoracic spine 3V IMPRESSION: Minimal dextrocurvature Minimal degenerative change most significant at L5-S1 Electronically authenticated by: AURORA SHAIKH Date: 09/29/2023 07:22
== END 2023-09-28 14:37 | disposition home or self-care (01) ==
LOC: RAD 14:36
PROVIDERS: PCP Nurse Practitioner Family; Visit Provider Nurse Practitioner Gerontology
DX: M54.17 Radiculopathy, lumbosacral region (principal); R29.898 Other symptoms and signs involving the musculoskeletal system; M62.838 Other muscle spasm
CPT/HCPCS: 72072; 72110

== ENCOUNTER 2023-10-03 09:10 | Outpatient (REF) | payer OTHER, SELFPAY ==
--- OUTSIDE RECORDS SUMMARY | 2023-10-03 09:13 | XMS_ITS | CCD ---
Author Organization [facility] Care Team Providers Care Night Manager Name Role Phone VICTOR MANUEL GUZMAN Referring Unavailable Bettina Jiménez Admitting Unavailable Bettina Jiménez Attending Unavailable Lui Salomon Primary Care Unavailable Unavailable Primary Care Provider JAREN Lynne Referring Unavailable Fernie PORCELAIN ENAMEL INSTALLER.CORPORATE PILOT, Gay Primary Care Provider [phone] Mirela Kelsey Unavailable Fernie [employer]ORCELAIN ENAMEL INSTALLER.TRUE, Gay Primary Care Provider [phone] Madelaine Ferris MD Unavailable Madelaine Ferris MD [...] Unavailable ENID ., DR GALLEGOS Consulting Unavailable HAY ., DR GALLEGOS Attending Unavailable JOSY ., DR BURKETT Primary Care Unavailable DR EL LOPEZ Admitting Unavailable KRISTINA GARRETT Consulting Unavailable JOSY ., DR BURKETT Primary Care Unavailable JOSY ., DR BURKETT Consulting Unavailable JOSY ., DR BURKETT Attending Unavailable JOSY ., DR BURKETT Admitting Unavailable GAY ENCISO Attending Unavailable GAY ENCISO Admitting Unavailable DR MADELAINE LEYVA Primary Care Unavailable DR MADELAINE LEYVA Consulting Unavailable JOSY ., DR BURKETT Primary Care Unavailable HOCristina ., DR BURKETT Consulting Unavailable JOSY ., DR BURKETT Attending Unavailable HOY ., DR BURKETT Admitting Unavailable BLANK, DR DIETZ Consulting Unavailable BLANK, DR DIETZ Attending Unavailable BLANK, DR DIETZ Admitting Unavailable FERNIE, GAY Primary Care Unavailable BLANK, DR DIETZ Consulting Unavailable BLANK, DR DIETZ Attending Unavailable BLANK, DR DIETZ Admitting Unavailable HOY ., DR BURKETT Primary Care Unavailable PARMJIT ., MICKY Attending Unavailable PARMJIT ., MICKY Admitting Unavailable RUMFORD, DR AURORA Pacheco Consulting Unavailable HOY ., [...] Charles Mitchell DO Primary Care Provider Mitali [employer]EL INSTALLER[employer]PORATE PILOT, Michelle London Unavailable Unavailable Primary Care Provider UnavailAurora Carney MD Unavailable Fernie [employer]EL INSTALLER[employer]PORATE PILOT, Gay S Primary Care Provider MICHELLE BRITTON Attending Unavailable CHARLES MITCHELL Primary Care Unavailable MICHELLE BRITTON Referring Unavailable LOIS HOLM Attending Unavailable GAY ENCISO S Primary Care Unavailable SHARRON ROGERS Attending Unavailab JUAN LUIS Mejía Attending Unavailable BERNABE ENGLISH Attending Unavailable GORDO BARFIELD Attending Unavailable GAY ENCISO Referring Unavailable JUAN LUIS RICHARDSON Attending Unavailable SHARRON ROGERS Attending Unavailab SHARRON Braden Referring Unavailab SHARRON Braden Referring Unavailab Madelaine Raygoza MD Primary Care Provider MADELAINE FERRIS M Primary Care Unavailable HOY, MADELAINE M [...] Unavailable HOY, MADELAINE M Primary Care Unavailable HYVENUS HOOKEREK Attending Unavailable HOY, MADELAINE M Primary [...] Primary Care Unavailable JOSE NAJERA Attending Unavailable Allergies Allergy Classification Reported Allergen(s) Allergy Type Date of Onset Reaction(s) Facility Sulfamethoxazole / Trimethoprim (1 source) Sulfamethoxazole / Trimethoprim Drug Allergy [facility] (20 sources) Codeine; Translations: [CODEINE] Drug Allergy Other: See Comments [facility] (20 sources) Latex; Translations: [LATEX] Drug Allergy Rash [facility] (20 sources) Sulfamethoxazole; Translations: [SULFAMETHOXAZOLE] Drug Allergy GI Upset, Other: See Comments [facility] (20 sources) Clindamycin; Translations: [CLINDAMYCIN] Drug Allergy Unknown [facility] (4 sources) Sulfamethoxazole / Trimethoprim Drug Allergy lymph swelling [facility] Other (20 sources) Doxycycline; Translations: [DOXYCYCLINE] Drug Allergy Other: See Comments, Other, Unknown [facility] (20 sources) Sulfamethoxazole / Trimethoprim; Translations: [SULFAMETHOXAZOLE-T RIMETHOPRIM] Drug Allergy Swelling, Other [facility] (20 sources) Trimethoprim; Translations: [TRIMETHOPRIM] Drug Allergy Other: See Comments [facility] (1 source) Latex Drug allergy (disorder) [facility] (1 source) Sulfamethoxazole / Trimethoprim Drug Allergy [facility] (3 sources) Sulfamethoxazole Allergy to substance [facility] (2 sources) Latex Propensity to adverse reactions 015 Rash [facility] Medications Current Medications Medication Drug [...] mg oral tablet (2 sources) Benzodiazepine Start: 024 take 1 tablet by mouth once daily as needed ALPRAZolam (Xanax) 0.25 MG tablet TAKE 1 TABLET BY MOUTH EVERY DAY NEEDED FOR 30 DAYS 0 06/24/2023 Active amLODIPine 2.5 mg oral tablet (1 source) Dihydropyridine Calcium Channel Judie Start: take 1 tablet by mouth once daily amLODIPine (NORVASC) 2.5 MG tablet Take 1 tablet by mouth daily 30 tablet 3 10/07/2020 Active amoxicillin 875 mg oral tablet (2 sources) Penicillin-class Antibacterial Start: take 1 tablet by mouth every twelve hours Amoxicillin 875 MG 1 tablet Orally every 12 hrs for 7 days September, Active amoxicillin 875 mg / clavulanate 125 mg oral tablet (1 source) Penicillin-class Antibacterial take 1 tablet by mouth twice daily amoxicillin-clavulan ate (AUGMENTIN) 875-125 MG per tablet Take 1 tablet by mouth 2 times daily 0 Active aspirin 81 mg chewable tablet (20 sources) Platelet Aggregation Inhibitor, Nonsteroidal Anti-inflammatory Drug aspirin 81 mg chewable tablet Take 81 mg by mouth. 0 Active Comment on above: Take 81 mg by mouth. azaTHIOprine 50 mg oral tablet (20 sources) Purine Antimetabolite Start: take 3 tablets by mouth once daily at mealtime azaTHIOprine (IMURAN) 50 mg tablet Indications: Other systemic lupus erythematosus with other organ involvement (HCC) , 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 [facility] 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 TAKE 3 TABLETS BY MOUTH DAILY WITH FOOD. HOLD IF ON ANTIBIOTICS OR ILL. 90 tablet 3 08/18/2023 Active Start: 02-16-2023 take 3 tablets by mo uth three times daily azaTHIOprine (Imuran) 50 mg tablet Take 3 tablets (150 mg) by mouth 3 times a day. 0 02/16/2023 Active Start: 11-24-2022 End: 02-16-2023 take 3 tablets by mouth once daily at mealtime azaTHIOprine (IMURAN) 50 mg tablet Indications: Other systemic lupus erythematosus with other organ involvement (HCC) , 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 TAKE 3 TABLETS BY MOUTH DAILY WITH FOOD. HOLD IF ON ANTIBIOTICS OR ILL. 90 tablet 3 02/16/2023 Active Start: 08-19-2022 End: 11-24-2022 take 2 tablets by mouth once daily at mealtime azaTHIOprine (IMURAN) 50 mg tablet Indications: Other systemic lupus erythematosus with other organ involvement (HCC) , 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 Take 2tab daily [...] (20 sources) B Lymphocyte Stimulator-specific Inhibitor Start: 023 [...] capsule (20 sources) Provitamin D2 Compound Start: 2023 End: 2023 take 1 capsule by mouth every week at mealtime ergocalciferol 50,000 unit capsule (VITAMIN D2, DRISDOL) Indications: Vitamin D deficiency Take 1cap by mouth once a week with food. 12 capsule 3 09/04/2023 Active Start: 10-31-2022 End: 01-24-2023 take 1 capsule by mouth every week ergocalciferol (Vitamin D-2) 1.25 MG (76097 UT) capsule Take 1 capsule (50,000 Units) [...] every week ergocalciferol (Vitamin D2) 1.25 MG (18897 UT) capsule Take 50,000 Units by mouth [...] 10 WEEKS, then once a week thereafter. Take 1cap by mouth o nce a week with food. fludrocortisone acetate 0.1 mg oral tablet (3 sources) Start: 2023 End: 2024 take 1 tablet by mouth at bedtime fludrocortisone (Florinef) 0.1 MG tablet Indications: Autonomic dysfunction Take 1 tablet (0.1 mg) by mouth at bedtime 30 tablet 11 06/01/2023 05/31/2024 Active fluocinonide 0.5 mg/ml topical solution (5 sources) Corticosteroid Start: 2022 fluocinonide (Lidex) 0.05 % external solution Apply [...] WHILE OUTDOORS/OPHTHAMOLOGY EVERY 6-12 MONTHS WHILE ON* hyoscyamine sulfate 0.125 mg oral tablet (2 sources) Start: 06-27-19 24 take 1 tablet by mouth every six hours as needed for pain hyoscyamine (Anaspaz,Levsin) 0.125 MG tablet TAKE 1 TABLET BY MOUTH EVERY 6 HOURS NEEDED FOR ABDOMINAL PAIN 0 06/27/2023 Active ibuprofen 200 mg oral tablet (20 sources) Nonsteroidal Anti-inflammatory Drug ibuprofen (MOTRIN ) 200 mg tablet Take 600 mg by [...] Active Start: 05-25-2022 [facility] metoprolol tartrate, short acting, (LOPRESSOR) [...] Discontinued Start: 01-19-2022 take 1 capsule by [facility] once daily naltrexone capsule 1 [...] 0.4 mg unde r the tongue. nystatin [id number] unt/ml topical cream (3 sources) Polyene Antifungal [...] Active phentermine hydrochloride 37.5 mg oral tablet (13 sources) Sympathomimetic Amine Anorectic Start: End: take [...] 10 mg oral tablet (20 sources) Start: predniSONE (DELTASONE) 10 mg tablet Indications: Other [...] Discontinued (Other) topiramate 25 mg oral tablet (17 sources) Start: 023 End: take 1 tablet by mouth twice daily topiramate (TOPAMAX) 25 mg tablet Indications: Other chronic pain Take 1 tablet by mouth two times a day. 180 tablet 0 05/26/2023 Active Comment on above: Take [...] Comment on above: Take 1 capsule by [facility] once daily. famotidine 20 mg oral [...] 20 mg by mouth daily at bedtime. omeprazole 40 mg delayed release oral capsule (3 sources) Proton Pump Inhibitor Start: 1 End: 2 take 1 capsule by mouth [...] on above: Take 1 capsule by mo [facility] twice daily. VIT/IRON FUMARATE/FA ( [...] Comment on above: Take 1 tablet by [facility] once daily. simvastatin 20 mg oral tablet (20 sources) HMG-CoA Reductase Inhibitor Start: 03-10-2022 End: 04-26-2023 simvastatin (ZOCOR) 20 mg tablet vitamin b12 1 mg/ml injectable solution (1 source) Vitamin B12 Start: 09-30-2023 End: 09-30-2023 cyanocobalamin 1,000 mcg injection Problems Active Problems Problem Classification Problem Date [...] 06-01-2023 06-01-2023 Episodic Deficiency and other anemia (3 sources) Anemia of chronic disease; Translations: [Anemia [...] Onset: 06-01-2023 06-01-2023 Episodic Malaise and fatigue (19 sources) Malaise and fatigue; Translations: [Chronic fatigue, unspecified] Onset: 06-10-2023 Chronic Menstrual disorders (20 sources) Excessive and frequent menstruation with irregular [...] sources) Drug therapy status; Translations: [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 [facility] 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] Episodic Other aftercare (1 source) Polypharmacy ; Translations: [Other [place] (current) drug therapy] Episodic Other circulatory disease [...] 40-49.9 (morbid obesity) (HCC)] Onset: 09-07-2022 Chronic Other screening for suspected conditions (not mental disorders or infectious disease) (19 sources) Elevated C-reactive protein; Translations: [Elevated C-reactive protein (CRP)] Onset: 03-11-2022 Episodic Other upper respiratory disease (2 sources) Chronic [...] Onset: 03-11-2022 Episodic Deficiency and other anemia (20 sources) Anemia; Translations: [Anemia, unspecified] Onset: 03-11-2022 [...] (20 sources) Drug therapy finding; Translations: [Other course instructor (current) drug therapy] Onset: 03-05-2021 Episodic Other aftercare (20 sources) H/O: high risk medication; Translations: [Other [facility] (current) drug therapy] Onset: 06-15-2022 06-15-2022 Episodic Other aftercare (1 source) Other [facility] (current) drug therapy; Translations: [OTH CURATOR OF COLLECTIONS 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 THERAPY] Onset: 03-23-2022 Episodic Other aftercare (20 sources) Long-term 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 systemic steroid; Translations: [physicians and surgeons (current) use of 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] Onset: 02-04-2023 02-04-2023 Episodic Other connective tissue disease (20 sources) Pain in toe; Translations: [Pain in right toe(s)] Onset: 03-05-2021 Episodic Other connective tissue disease (20 sources) Fibromyalgia; Translations: [Fibromyalgia] Onset: 10-24-2021 Episodic Other connective tissue disease (10 sources) Other symptoms and signs involving the musculoskeletal system; Translations: [Other musculoskeletal symptoms referable to limbs] Onset: 03-05-2021 03-05-2021 Episodic Other hematologic conditions (8 sources) Elevated erythrocyte sedimentation rate; Translations: [ELEVATED ERYTHROCYTE SED RATE] Onset: 09-18-2021 Resolved: 11-26-2021 Episodic Other injuries and conditions [...] right wrist] Onset: 02-04-2023 02-04-2023 Episodic Other nutritional; endocrine; and metabolic disorders (20 sources) Obese class II; Translations: [Obesity, unspecified] Onset: 03-09-2022 Resolved: 03-10-2023 03-09-2022 Chronic Other nutritional; endocrine; and metabolic disorders (2 sources) Body mass index 30+ - obesity; Translations: [Obesity, unspecified] Onset: 05-31-2014 Resolved: 07-06-2016 07-06-2016 Chronic Other skin disorders (20 sources) Eruption; Translations: [...] Name Value Interpretation Reference Range Facility CNNURSEon 09-30-2023 CNNURSE Normal [facility] CNPNon 09-04-2023 CNPN Normal [facility] 25(OH)D3 SerPl-ncon 2023 25-hydroxyvitamin D3 [Mass/Vol] 32.2 ng/mL Normal 31.0-80.0 [facility] Comment on above: Order Comment: Semaj cortés Type: BLOOD SPECIMENOrdering Facility: [facility] Address: [address] [place] [address] Result Comment: Clas sification of 25 [place] Vitamin D status:Deficiency/Insufficiency: < or = 30 ng/ml.Sufficiency/Optimal Levels: 31-80 ng/mLToxicity: > 100 ng/mL.Test performed by chemiluminescent immunoassay. Performed By: #### 1 989-3 ####[facility] LABCLIA [id number] [place] [address] [place] CBC W Auto Differential pane l (Bld)on 08-31-2023 Basophils (Bld) [#/Vol] 0.07 10*3/uL Normal <0.11 [facility] Comment on above: Order Comment: Semaj cortés Type: BLOOD SPECIMENOrdering Facility: [facility] Address: [address] [place] [address] Performed By: #### 5 7021-8 ####[facility] LABCLIA [id number] [place] [address] Basophils/100 WBC (Bld) 0.5 % Normal [facility] Comment on above: Order Comment: Speci men Type: BLOOD SPECIMENOrdering Facility: [facility] Address: [address] [place] [address] Performed By: #### 5 7021-8 ####[facility] LABCLIA [id number] [place] [address] Differential cell count method Nom (Bld) Auto Normal [facility] Comment on above: Order Comment: Speci men Type: BLOOD SPECIMENOrdering Facility: [facility] Address: [address] [place] [address] Performed By: #### 5 7021-8 ####[facility] LABCLIA [id number] [place] [address] Eosinophils (Bld) [#/Vol] 0.20 10*3/uL Normal <0.46 [facility] Comment on above: Order Comment: Speci men Type: BLOOD SPECIMENOrdering Facility: [facility] Address: [address] [place] [address] Performed By: #### 5 7021-8 ####[facility] LABCLIA [id number] [place] [address] Eosinophils/100 WBC (Bld) 1.5 % Normal [facility] Comment on above: Order Comment: Speci men Type: BLOOD SPECIMENOrdering Facility: [facility] Address: [address] [place] [address] Performed By: #### 5 7021-8 ####[facility] LABCLIA [id number] [place] [address] Erythrocyte distribution width (RBC) [Ratio] 14.6 % Normal 11.5-15.0 [facility] Comment on above: Order Comment: Speci men Type: BLOOD SPECIMENOrdering Facility: [facility] Address: [address] [place] [address] Performed By: #### 5 7021-8 ####[facility] LABCLIA [id number] [place] [address] Hematocrit (Bld) [Volume fraction] 41.5 % Normal 36.0-46.0 [facility] Comment on above: Order Comment: Speci men Type: BLOOD SPECIMENOrdering Facility: [facility] Address: [address] [place] [address] Performed By: #### 5 7021-8 ####[facility] LABCLIA [id number] [place] [address] Hemoglobin (Bld) [Mass/Vol] 13.3 g/dL Normal 11.5-15.5 [facility] Comment on above: Order Comment: Speci men Type: BLOOD SPECIMENOrdering Facility: [facility] Address: [address] [place] [address] Performed By: #### 5 7021-8 ####[facility] LABCLIA [id number] [place] [address] Immature granulocytes (Bld) [#/Vol] 0.14 10*3/uL High <0.10 [facility] Comment on above: Order Comment: Speci men Type: BLOOD SPECIMENOrdering Facility: [facility] Address: [address] [place] [address] Performed By: #### 5 7021-8 ####[facility] LABCLIA [id number] [place] [address] Immature granulocytes/100 WBC (Bld) 1.0 % Normal [facility] Comment on above: Order Comment: Speci men Type: BLOOD SPECIMENOrdering Facility: [facility] Address: [address] [place] [address] Performed By: #### 5 7021-8 ####[facility] LABCLIA [id number] [place] [address] Lymphocytes (Bld) [#/Vol] 2.58 10*3/uL Normal 1.00-4.00 [facility] Comment on above: Order Comment: Speci men Type: BLOOD SPECIMENOrdering Facility: [facility] Address: [address] [place] [address] Performed By: #### 5 7021-8 ####[facility] LABCLIA [id number] [place] [address] Lymphocytes/100 WBC (Bld) 19.2 % Normal [facility] Comment on above: Order Comment: Speci men Type: BLOOD SPECIMENOrdering Facility: [facility] Address: [address] [place] [address] Performed By: #### 5 7021-8 ####[facility] LABCLIA [id number] [place] [address] MCH (RBC) [Entitic mass] 30.0 pg Normal 26.0-34.0 [facility] Comment on above: Order Comment: Speci men Type: BLOOD SPECIMENOrdering Facility: [facility] Address: [address] [place] [address] Performed By: #### 5 7021-8 ####[facility] LABCLIA [id number] [place] [address] MCHC (RBC) [Mass/Vol] 32.0 g/dL Normal 30.5-36.0 [facility] Comment on above: Order Comment: Speci men Type: BLOOD SPECIMENOrdering Facility: [facility] Address: [address] [place] [address] Performed By: #### 5 7021-8 ####[facility] LABCLIA [id number] [place] [address] MCV (RBC) [Entitic vol] 93.7 fL Normal 80.0-100.0 [facility] Comment on above: Order Comment: Speci men Type: BLOOD SPECIMENOrdering Facility: [facility] Address: [address] [place] [address] Performed By: #### 5 7021-8 ####[facility] LABCLIA [id number] [place] [address] Monocytes (Bld) [#/Vol] 0.75 10*3/uL Normal <0.87 [facility] Comment on above: Order Comment: Speci men Type: BLOOD SPECIMENOrdering Facility: [facility] Address: [address] [place] [address] Performed By: #### 5 7021-8 ####[facility] LABCLIA [id number] [place] [address] Monocytes/100 WBC (Bld) 5.6 % Normal [facility] Comment on above: Order Comment: Speci men Type: BLOOD SPECIMENOrdering Facility: [facility] Address: [address] [place] [address] Performed By: #### 5 7021-8 ####[facility] LABCLIA [id number] [place] [address] Neutrophils (Bld) [#/Vol] 9.69 10*3/uL High 1.45-7.50 [facility] Comment on above: Order Comment: Speci men Type: BLOOD SPECIMENOrdering Facility: [facility] Address: [address] [place] [address] Performed By: #### 5 7021-8 ####[facility] LABCLIA [id number] [place] [address] Neutrophils/100 WBC (Bld) 72.2 % Normal [facility] Comment on above: Order Comment: Speci men Type: BLOOD SPECIMENOrdering Facility: [facility] Address: [address] [place] [address] Performed By: #### 5 7021-8 ####[facility] LABCLIA [id number] [place] [address] Nucleated RBC (Bld) [#/Vol] 10*3/uL Normal <0.01 [facility] Comment on above: Order Comment: Speci men Type: BLOOD SPECIMENOrdering Facility: [facility] Address: [address] [place] [address] Performed By: #### 5 7021-8 ####[facility] LABCLIA [id number] [place] [address] Nucleated RBC/100 WBC (Bld) [Ratio] 0.0 /100 WBC Normal [facility] Comment on above: Order Comment: Speci men Type: BLOOD SPECIMENOrdering Facility: [facility] Address: [address] [place] [address] Performed By: #### 5 7021-8 ####[facility] LABCLIA [id number] [place] [address] Platelet mean volume (Bld) [Entitic vol] 9.6 fL Normal 9.0-12.7 [facility] Comment on above: Order Comment: Speci men Type: BLOOD SPECIMENOrdering Facility: [facility] Address: [address] [place] [address] Performed By: #### 5 7021-8 ####[facility] LABIA [id number] [place] [address] Platelets (Bld) [#/Vol] 304 10*3/uL Normal 150-400 [facility] Comment on above: Order Comment: Speci men Type: BLOOD SPECIMENOrdering Facility: [facility] Address: [address] [place] [address] Performed By: #### 5 7021-8 ####[facility] LABIA [id number] [place] [address] RBC (Bld) [#/Vol] 4.43 10*6/uL Normal 3.90-5.20 [facility] Comment on above: Order Comment: Speci men Type: BLOOD SPECIMENOrdering Facility: [facility] Address: [address] [place] [address] Performed By: #### 5 7021-8 ####[facility] LABIA [id number] [place] [address] WBC (Bld) [#/Vol] 13.43 10*3/uL High 3.70-11.00 [facility] Comment on above: Order Comment: Speci men Type: BLOOD SPECIMENOrdering Facility: [facility] Address: [address] [place] [address] Performed By: #### 5 7021-8 ####[facility] LABCLIA [id number] [place] [address] CNNURSEon 08-31-2023 CNNURSE Normal [facility] CRP SerPl-mCncon 08-31-2023 CRP [Mass/Vol] 0.6 mg/dL Normal <0.9 [facility] Comment on above: Order Comment: Speci men Type: BLOOD SPECIMENOrdering Facility: [facility] Address: [address] [place] [address] Performed By: #### 1 988-5, 91433-0, 2276-4 ####[facility] LABCLIA [id number] [facility] Comprehensive metabolic 2000 panelon 08-31-2023 Albumin [Mass/Vol] 4.0 g/dL Normal 3.9-4.9 [facility] Comment on above: Order Comment: Speci men Type: BLOOD SPECIMENOrdering Facility: [facility] Address: [address] [place] [address] Performed By: #### 2 4323-8 ####[facility] LABCLIA [id number] [place] [address] ALP [Catalytic activity/Vol] 69 U/L Normal 34-123 [facility] Comment on above: Order Comment: Speci men Type: BLOOD SPECIMENOrdering Facility: [facility] Address: [address] [place] [address] Performed By: #### 2 4323-8 ####[facility] LABCLIA [id number] [place] [address] ALT [Catalytic activity/Vol] 31 U/L Normal 7-38 [facility] Comment on above: Order Comment: Speci men Type: BLOOD SPECIMENOrdering Facility: [facility] Address: [address] [place] [address] Performed By: #### 2 4323-8 ####[facility] LABCLIA [id number] [place] [address] Anion gap [Moles/Vol] 11 mmol/L Normal 9-18 [facility] Comment on above: Order Comment: Speci men Type: BLOOD SPECIMENOrdering Facility: [facility] Address: [address] [place] [address] Performed By: #### 2 4323-8 ####[facility] [facility] [id number] [place] [address] AST [Catalytic activity/Vol] 18 U/L Normal 13-35 [facility] Comment on above: Order Comment: Speci men Type: BLOOD SPECIMENOrdering Facility: [facility] Address: [address] [place] [address] Performed By: #### 2 4323-8 ####[facility] LABCLIA [id number] [place] [address] Bilirubin [Mass/Vol] 0.3 mg/dL Normal 0.2-1.3 [facility] Comment on above: Order Comment: Speci men Type: BLOOD SPECIMENOrdering Facility: [facility] Address: [address] [place] [address] Performed By: #### 2 4323-8 ####[facility]CLIA [id number] [place] [address] Calcium [Mass/Vol] 10.0 mg/dL Normal 8.5-10.2 [facility] Comment on above: Order Comment: Speci men Type: BLOOD SPECIMENOrdering Facility: [facility] Address: [address] [place], [place] [address] Performed By: #### 2 4323-8 ####[facility]CLIA [id number] [place] [address] Chloride [Moles/Vol] 105 mmol/L Normal 97-105 [facility] Comment on above: Order Comment: Speci men Type: BLOOD SPECIMENOrdering Facility: [facility] Address: [address] [place] [address] Performed By: #### 2 4323-8 ####[facility]CL[facility] [id number] [place] [address] CO2 [Moles/Vol] 25 mmol/L Normal 22-30 [facility] Comment on above: Order Comment: Speci men Type: BLOOD SPECIMENOrdering Facility: [facility] Address: [address] [place] [address] Performed By: #### 2 4323-8 ####[facility]CL[facility] [id number] [place] [address] Creatinine [Mass/Vol] 0.80 mg/dL Normal 0.58-0.96 [facility] Comment on above: Order Comment: Speci men Type: BLOOD SPECIMENOrdering Facility: [facility] Address: [address] [place] [address] Performed By: #### 2 4323-8 ####[facility]CL[facility] [id number] [place] [address] Creatinine and Glomerular filtration rate.predicted panel (S/P/Bld) 94 mL/min/1.73m??? Normal >=60 [facility] Comment on above: Order Comment: Speci men Type: BLOOD SPECIMENOrdering Facility: [facility] Address: [address] [place] [address] Result Comment: Erin mated Glomerular Filtration Rate [...] actual GFR. Performed By: #### 2 4323-8 ####[facility] [id number] [place] [address] Glucose [Mass/Vol] 160 mg/dL High 74-99 [facility] Comment on above: Order Comment: Speci men Type: BLOOD SPECIMENOrdering Facility: [facility] Address: [address] [place] [address] Result Comment: The [place] Diabetes Association (ADA) provides guidance for cutoff [...] Standards of Medical Care in Diabetes 2016, [place] [employer]. Diabetes Care. 2016.39(Suppl 1). Performed By: #### 2 4323-8 ####[facility]CL[facility] [id number] [place] [address] Potassium [Moles/Vol] 4.2 mmol/L Normal 3.7-5.1 [facility] Comment on above: Order Comment: Leolai men Type: BLOOD SPECIMENOrdering Facility: [facility] Address: [address] [place] [address] Performed By: #### 2 4323-8 ####[facility]CL[facility] [id number] [place] [address] Protein [Mass/Vol] 6.9 g/dL Normal 6.3-8.0 [facility] Comment on above: Order Comment: Speci men Type: BLOOD SPECIMENOrdering Facility: [facility] Address: [address] [place] [address] Performed By: #### 2 4323-8 ####[facility] [id number] [place] [address] Sodium [Moles/Vol] 141 mmol/L Normal 136-144 [facility] Comment on above: Order Comment: Speci men Type: BLOOD SPECIMENOrdering Facility: [facility] Address: [address] [place] [address] Performed By: #### 2 4323-8 ####[facility]CL[facility] [id number] [place] [address] Urea nitrogen [Mass/Vol] 13 mg/dL Normal 7-21 [facility] Comment on above: Order Comment: Speci men Type: BLOOD SPECIMENOrdering Facility: [facility] Address: [address] [place] [address] Performed By: #### 2 4323-8 ####[facility]CLIA [id number] [place] [id number] ESR Westergren method (Bld) [Velocity]on 08-31-2023 ESR (Bld) [Velocity] 37 mm/h High 0-20 [facility] Comment on above: Order Comment: Speci men Type: BLOOD SPECIMENOrdering Facility: [facility] Address: [address] [place] [address] Performed By: #### 4 537-7 ####[facility] LABCLIA [id number] [place] [address] [place] Ferritin SerPl-mCncon 2023 Ferritin [Mass/Vol] 60.3 ng/mL Normal 14.7-205.1 [facility] Comment on above: Order Comment: Speci men Type: BLOOD SPECIMENOrdering Facility: [facility] Address: [address] [place] [address] Performed By: #### 1 988-5, 55771-9, 2276-4 ####[facility] LABCLIA [id number] [place] [address] [place] Folate SerPl-mCncon 08-31-19 24 Folate [Mass/Vol] ng/mL Normal >4.7 [facility] Comment on above: Order Comment: Speci men Type: BLOOD SPECIMENOrdering Facility: [facility] Address: [address] [place] [address] Result Comment: A re sult of > 20 ng/mL is not necessarily indicative of a pathologic or treatable condition: it reflects a limitation of the test methodology.Assay reference range: 4.8 to 24.2 ng/mL. Suitable for detection of folate deficiency.Reference:Folate III (Folate III) [package insert V 1.0 Monegasque]. [facility], [place], [place]: March 2015. Performed By: #### 2 284-8, 2132-9 ####[facility] LABCLIA [id number] [place] [address] [place] Iron and Iron binding capaci ty panelon 08-31-2023 Iron [Mass/Vol] 87 ug/dL Normal 41-186 [facility] Comment on above: Order Comment: Speci men Type: BLOOD SPECIMENOrdering Facility: [facility] Address: [address] [place] [address] Performed By: #### 1 988-5, 78447-7, 2275-4 ####[facility] LABIA [id number] [place] [address] [place] Iron binding capacity [Mass/Vol] 356 ug/dL Normal 232-386 [facility] Comment on above: Order Comment: Speci men Type: BLOOD SPECIMENOrdering Facility: [facility] Address: [address] [place] [address] Performed By: #### 1 988-5, 28086-9, 2275-4 ####[facility] LABCLIA [id number] [place] [id number] [place] Iron/TIBC [Molar ratio] 24.4 % Normal 15.0-57.0 [facility] Comment on above: Order Comment: Speci men Type: BLOOD SPECIMENOrdering Facility: [facility] Address: [address] [place] [address] Performed By: #### 1 988-5, 01961-9, 2275-4 ####[facility] LABCLIA [id number] [place] [address] [place] Vit B12 [facility]Pl[facility] Cobalamin (Vitamin B12) [Mass/Vol] 820 pg/mL Normal 232-1245 [facility] Comment on above: Order Comment: Speci men Type: BLOOD SPECIMENOrdering Facility: [facility] Address: [address] [place] [address] Performed By: #### 2 284-8, 2132-9 ####[facility] [id number] [place] [address] [place] CNNURSEon 08-05-2023 CNNURSE Normal [facility] CNNURSEon 07-13-2023 CNNURSE Normal [facility] ECG 12 Leadon 07-13-2023 ECG revealed normal sinus rhythm [facility] Work Phone: CNPNon 06-12-2023 CNPN Normal [facility] 25([place])D3 [facility] 20[facility] 25-hydroxyvitamin D3 [Mass/Vol] 17.3 ng/mL Low 31.0-80.0 [facility] Comment on above: Order Comment: Leolai moo Type: BLOOD SPECIMENOrdering Facility: [facility] Address: [address] [place] [address] Result Comment: Clas sification of 25 [place] Vitamin D status:Deficiency/Insufficiency: < or = 30 ng/ml.Sufficiency/Optimal Levels: 31-80 ng/mLToxicity: > 100 ng/mL.Test performed by chemiluminescent immunoassay. Performed By: #### 1 989-3 ####[facility] [id number] [place] [address] [place] CBC panel Auto (Bld)on 06-10 Erythrocyte distribution width (RBC) [Ratio] 14.5 % Normal 11.5-15.0 [facility] Comment on above: Order Comment: Speci men Type: BLOOD SPECIMENOrdering Facility: [facility] Address: [address] [place] [address] Performed By: #### 5 8410-2 ####[facility]CLIA [id number] [place] [address] Hematocrit (Bld) [Volume fraction] 43.1 % Normal 36.0-46.0 [facility] Comment on above: Order Comment: Speci men Type: BLOOD SPECIMENOrdering Facility: [facility] Address: [address] [place] [address] Performed By: #### 5 8410-2 ####[facility]CL[facility] [id number] [place] [address] Hemoglobin (Bld) [Mass/Vol] 13.9 g/dL Normal 11.5-15.5 [facility] Comment on above: Order Comment: Speci men Type: BLOOD SPECIMENOrdering Facility: [facility] Address: [address] [place] [address] Performed By: #### 5 8410-2 ####[facility]CLIA [id number] [place] [address] MCH (RBC) [Entitic mass] 30.6 pg Normal 26.0-34.0 [facility] Comment on above: Order Comment: Speci men Type: BLOOD SPECIMENOrdering Facility: [facility] Address: [address] [place] [address] Performed By: #### 5 8410-2 ####[facility]CLIA [id number] [place] [address] MCHC (RBC) [Mass/Vol] 32.3 g/dL Normal 30.5-36.0 [facility] Comment on above: Order Comment: Speci men Type: BLOOD SPECIMENOrdering Facility: [facility] Address: [address] [place] [address] Performed By: #### 5 8410-2 ####[facility]CLIA [id number] [place] [address] MCV (RBC) [Entitic vol] 94.9 fL Normal 80.0-100.0 [facility] Comment on above: Order Comment: Speci men Type: BLOOD SPECIMENOrdering Facility: [facility] Address: [address] [place] [address] Performed By: #### 5 8410-2 ####[facility]CL[facility] [id number] [place] [address] Nucleated RBC (Bld) [#/Vol] 10*3/uL Normal <0.01 [facility] Comment on above: Order Comment: Speci men Type: BLOOD SPECIMENOrdering Facility: [facility] Address: [address] [place] [address] Performed By: #### 5 8410-2 ####[facility]CLIA [id number] [place] [address] Platelet mean volume (Bld) [Entitic vol] 9.5 fL Normal 9.0-12.7 [facility] Comment on above: Order Comment: Speci men Type: BLOOD SPECIMENOrdering Facility: [facility] Address: [address] [place] [address] Performed By: #### 5 8410-2 ####[facility] LABIA [id number] [place] [address] Platelets (Bld) [#/Vol] 320 10*3/uL Normal 150-400 [facility] Comment on above: Order Comment: Speci men Type: BLOOD SPECIMENOrdering Facility: [facility] Address: [address] [place] [address] Performed By: #### 5 8410-2 ####[facility] LABIA [id number] [place] [address] RBC (Bld) [#/Vol] 4.54 10*6/uL Normal 3.90-5.20 [facility] Comment on above: Order Comment: Speci men Type: BLOOD SPECIMENOrdering Facility: [facility] Address: [address] [place] [address] Performed By: #### 5 8410-2 ####[facility] LABCLIA [id number] [place] [address] WBC (Bld) [#/Vol] 15.15 10*3/uL High 3.70-11.00 [facility] Comment on above: Order Comment: Speci men Type: BLOOD SPECIMENOrdering Facility: [facility] Address: [address] [place] [address] Performed By: #### 5 8410-2 ####[facility]CLIA [id number] [place] [address] CNNURSEon 06-10-2023 CNNURSE Normal [facility] CNOVSPon 06-10-2023 CNOVSP Normal [facility] CRP SerPl-mCncon 06-10-2023 CRP [Mass/Vol] mg/L Normal <0.9 [facility] Comment on above: Order Comment: Speci men Type: BLOOD SPECIMENOrdering Facility: [facility] Address: [address] [place] [address] Performed By: #### 1 988-5 ####[facility] LABCLIA [id number] [place] [id number] [facility] Comprehensive metabolic 2000 panelon 06-10-2023 Albumin [Mass/Vol] 4.1 g/dL Normal 3.9-4.9 [facility] Comment on above: Order Comment: Speci men Type: BLOOD SPECIMENOrdering Facility: [facility] Address: [address] [place] [address] Performed By: #### 2 4323-8 ####[facility] LABCLIA [id number] [place] [address] ALP [Catalytic activity/Vol] 72 U/L Normal 34-123 [facility] Comment on above: Order Comment: Speci men Type: BLOOD SPECIMENOrdering Facility: [facility] Address: [address] [place] [address] Performed By: #### 2 4323-8 ####[facility] LABCLIA [id number] [place] [address] ALT [Catalytic activity/Vol] 22 U/L Normal 7-38 [facility] Comment on above: Order Comment: Speci men Type: BLOOD SPECIMENOrdering Facility: [facility] Address: [address] [place] [address] Performed By: #### 2 4323-8 ####[facility] LABCLIA [id number] [place] [address] Anion gap [Moles/Vol] 10 mmol/L Normal 9-18 [facility] Comment on above: Order Comment: Speci men Type: BLOOD SPECIMENOrdering Facility: [facility] Address: [address] [place] [address] Performed By: #### 2 4323-8 ####[facility] LABCLIA [id number] [place] [address] AST [Catalytic activity/Vol] 9 U/L Low 13-35 [facility] Comment on above: Order Comment: Speci men Type: BLOOD SPECIMENOrdering Facility: [facility] Address: [address] [place] [address] Performed By: #### 2 4323-8 ####[facility] LABCLIA [id number] [place] [address] Bilirubin [Mass/Vol] 0.2 mg/dL Normal 0.2-1.3 [facility] Comment on above: Order Comment: Speci men Type: BLOOD SPECIMENOrdering Facility: [facility] Address: [address] [place] [address] Performed By: #### 2 4323-8 ####[facility] LABCLIA [id number] [place] [address] Calcium [Mass/Vol] 9.8 mg/dL Normal 8.5-10.2 [facility] Comment on above: Order Comment: Speci men Type: BLOOD SPECIMENOrdering Facility: [facility] Address: [address] [place], [place] [address] Performed By: #### 2 4323-8 ####[facility] LABCLIA [id number] [place] [address] Chloride [Moles/Vol] 107 mmol/L High 97-105 [facility] Comment on above: Order Comment: Speci men Type: BLOOD SPECIMENOrdering Facility: [facility] Address: [address] [place] [address] Performed By: #### 2 4323-8 ####[facility] LABCLIA [id number] [place] [address] CO2 [Moles/Vol] 24 mmol/L Normal 22-30 [facility] Comment on above: Order Comment: Speci men Type: BLOOD SPECIMENOrdering Facility: [facility] Address: [address] [place] [address] Performed By: #### 2 4323-8 ####[facility] LABCLIA [id number] [place] [address] Creatinine [Mass/Vol] 0.80 mg/dL Normal 0.58-0.96 [facility] Comment on above: Order Comment: Speci men Type: BLOOD SPECIMENOrdering Facility: [facility] Address: [address] [place] [address] Performed By: #### 2 4323-8 ####[facility] LABCLIA [id number] [place] [address] Creatinine and Glomerular filtration rate.predicted panel (S/P/Bld) 94 mL/min/1.73m??? Normal >=60 [facility] Comment on above: Order Comment: Speci men Type: BLOOD SPECIMENOrdering Facility: [facility] Address: [address] [place] [address] Result Comment: Erin mated Glomerular Filtration Rate [...] actual GFR. Performed By: #### 2 4323-8 ####[facility] LABCLIA [id number] [place] [address] Glucose [Mass/Vol] 98 mg/dL Normal 74-99 [facility] Comment on above: Order Comment: Semaj cortés Type: BLOOD SPECIMENOrdering Facility: [facility] Address: [address] [place] [address] Result Comment: The [place] Diabetes Association (ADA) provides guidance for cutoff [...] Standards of Medical Care in Diabetes 2016, [place] [employer] Association. Diabetes Care. 2016.39(Suppl 1). Performed By: #### 2 4323-8 ####[facility] LABCLIA [id number] [place] [address] Potassium [Moles/Vol] 3.6 mmol/L Low 3.7-5.1 [facility] Comment on above: Order Comment: Semaj cortés Type: BLOOD SPECIMENOrdering Facility: [facility] Address: [address] [place] [address] Performed By: #### 2 4323-8 ####[facility] LABCLIA [id number] [place] [address] Protein [Mass/Vol] 7.0 g/dL Normal 6.3-8.0 [facility] Comment on above: Order Comment: Semaj cortés Type: BLOOD SPECIMENOrdering Facility: [facility] Address: [address] [place] [id number] Performed By: #### 2 4323-8 ####[facility] LABCLIA [id number] [place] [id number] Sodium [Moles/Vol] 141 mmol/L Normal 136-144 [facility] Comment on above: Order Comment: Speci men Type: BLOOD SPECIMENOrdering Facility: [facility] Address: [address] [place] [address] Performed By: #### 2 4323-8 ####[facility] LABCLIA [id number] [place] [id number] Urea nitrogen [Mass/Vol] 17 mg/dL Normal 7-21 [facility] Comment on above: Order Comment: Speci men Type: BLOOD SPECIMENOrdering Facility: [facility] Address: [address] [place] [address] Performed By: #### 2 4323-8 ####[facility] LABCLIA [id number] [place] [id number] ESR Westergren method (Bld) [Velocity]on 06-10-2023 ESR (Bld) [Velocity] 28 mm/h High 0-20 [facility] Comment on above: Order Comment: Speci men Type: BLOOD SPECIMENOrdering Facility: [facility] Address: [address] [place] [address] Performed By: #### 4 537-7 ####[facility] LABCLIA [id number] [place] [address] [place] CBC W Auto Differential pane l (Bld)on 06-03-2023 Basophils (Bld) [#/Vol] 0.05 10*3/uL Normal <0.11 [facility] Comment on above: Order Comment: Speci men Type: BLOOD SPECIMENOrdering Facility: [facility] Address: [address] [place] [address] Performed By: #### 5 7021-8 ####[facility] LABCLIA [id number] [place] [id number] Basophils/100 WBC (Bld) 0.4 % Normal [facility] Comment on above: Order Comment: Speci men Type: BLOOD SPECIMENOrdering Facility: [facility] Address: [address] [place] [address] Performed By: #### 5 7021-8 ####[facility] LABCLIA [id number] [place] [address] Differential cell count method Nom (Bld) Auto Normal [facility] Comment on above: Order Comment: Speci men Type: BLOOD SPECIMENOrdering Facility: [facility] Address: [address] [place] [address] Performed By: #### 5 7021-8 ####[facility] LABCLIA [id number] [place] [address] Eosinophils (Bld) [#/Vol] 0.14 10*3/uL Normal <0.46 [facility] Comment on above: Order Comment: Speci men Type: BLOOD SPECIMENOrdering Facility: [facility] Address: [address] [place] [address] Performed By: #### 5 7021-8 ####[facility] LABCLIA [id number] [place] [address] Eosinophils/100 WBC (Bld) 1.1 % Normal [facility] Comment on above: Order Comment: Speci men Type: BLOOD SPECIMENOrdering Facility: [facility] Address: [address] [place] [address] Performed By: #### 5 7021-8 ####[facility] LABCLIA [id number] [place] [address] Erythrocyte distribution width (RBC) [Ratio] 14.5 % Normal 11.5-15.0 [facility] Comment on above: Order Comment: Speci men Type: BLOOD SPECIMENOrdering Facility: [facility] Address: [address] [place] [address] Performed By: #### 5 7021-8 ####[facility] LABCLIA [id number] [place] [address] Hematocrit (Bld) [Volume fraction] 40.5 % Normal 36.0-46.0 [facility] Comment on above: Order Comment: Speci men Type: BLOOD SPECIMENOrdering Facility: [facility] Address: [address] [place] [address] Performed By: #### 5 7021-8 ####[facility] LABCLIA [id number] [place] [address] Hemoglobin (Bld) [Mass/Vol] 13.1 g/dL Normal 11.5-15.5 [facility] Comment on above: Order Comment: Speci men Type: BLOOD SPECIMENOrdering Facility: [facility] Address: [address] [place] [address] Performed By: #### 5 7021-8 ####[facility] LABIA [id number] [place] [address] Immature granulocytes (Bld) [#/Vol] 0.20 10*3/uL High <0.10 [facility] Comment on above: Order Comment: Speci men Type: BLOOD SPECIMENOrdering Facility: [facility] Address: [address] [place] [address] Performed By: #### 5 7021-8 ####[facility] LABIA [id number] [place] [address] Immature granulocytes/100 WBC (Bld) 1.6 % Normal [facility] Comment on above: Order Comment: Speci men Type: BLOOD SPECIMENOrdering Facility: [facility] Address: [address] [place] [address] Performed By: #### 5 7021-8 ####[facility] LABIA [id number] [place] [address] Lymphocytes (Bld) [#/Vol] 4.13 10*3/uL High 1.00-4.00 [facility] Comment on above: Order Comment: Speci men Type: BLOOD SPECIMENOrdering Facility: [facility] Address: [address] [place] [address] Performed By: #### 5 7021-8 ####[facility] LABCLIA [id number] [place] [address] Lymphocytes/100 WBC (Bld) 32.1 % Normal [facility] Comment on above: Order Comment: Speci men Type: BLOOD SPECIMENOrdering Facility: [facility] Address: [address] [place] [address] Performed By: #### 5 7021-8 ####[facility] LABCLIA [id number] [place] [address] MCH (RBC) [Entitic mass] 30.8 pg Normal 26.0-34.0 [facility] Comment on above: Order Comment: Speci men Type: BLOOD SPECIMENOrdering Facility: [facility] Address: [address] [place] [address] Performed By: #### 5 7021-8 ####[facility] LABCLIA [id number] [place] [address] MCHC (RBC) [Mass/Vol] 32.3 g/dL Normal 30.5-36.0 [facility] Comment on above: Order Comment: Speci men Type: BLOOD SPECIMENOrdering Facility: [facility] Address: [address] [place] [address] Performed By: #### 5 7021-8 ####[facility] LABCLIA [id number] [place] [address] MCV (RBC) [Entitic vol] 95.1 fL Normal 80.0-100.0 [facility] Comment on above: Order Comment: Speci men Type: BLOOD SPECIMENOrdering Facility: [facility] Address: [address] [place] [address] Performed By: #### 5 7021-8 ####[facility] LABCLIA [id number] [place] [address] Monocytes (Bld) [#/Vol] 0.79 10*3/uL Normal <0.87 [facility] Comment on above: Order Comment: Speci men Type: BLOOD SPECIMENOrdering Facility: [facility] Address: [address] [place] [address] Performed By: #### 5 7021-8 ####[facility] LABCLIA [id number] [place] [address] Monocytes/100 WBC (Bld) 6.1 % Normal [facility] Center Comment on above: Order Comment: Speci men Type: BLOOD SPECIMENOrdering Facility: [facility] Address: [address] [place] [address] Performed By: #### 5 7021-8 ####[facility] LABCLIA [id number] [place] [address] Neutrophils (Bld) [#/Vol] 7.56 10*3/uL High 1.45-7.50 [facility] Comment on above: Order Comment: Speci men Type: BLOOD SPECIMENOrdering Facility: [facility] Address: [address] [place] [address] Performed By: #### 5 7021-8 ####[facility] LABCLIA [id number] [place] [address] Neutrophils/100 WBC (Bld) 58.7 % Normal [facility] Comment on above: Order Comment: Speci men Type: BLOOD SPECIMENOrdering Facility: [facility] Address: [address] [place] [address] Performed By: #### 5 7021-8 ####[facility] LABCLIA [id number] [place] [address] Nucleated RBC (Bld) [#/Vol] 10*3/uL Normal <0.01 [facility] Comment on above: Order Comment: Speci men Type: BLOOD SPECIMENOrdering Facility: [facility] Address: [address] [place] [address] Performed By: #### 5 7021-8 ####[facility] LABCLIA [id number] [place] [address] Nucleated RBC/100 WBC (Bld) [Ratio] 0.0 /100 WBC Normal [facility] Comment on above: Order Comment: Speci men Type: BLOOD SPECIMENOrdering Facility: [facility] Address: [address] [place] [address] Performed By: #### 5 7021-8 ####[facility] LABCLIA [id number] [place] [address] Platelet mean volume (Bld) [Entitic vol] 9.7 fL Normal 9.0-12.7 [facility] Comment on above: Order Comment: Speci men Type: BLOOD SPECIMENOrdering Facility: [facility] Address: [address] [place] [address] Performed By: #### 5 7021-8 ####[facility] LABIA [id number] [place] [address] Platelets (Bld) [#/Vol] 261 10*3/uL Normal 150-400 [facility] Comment on above: Order Comment: Speci men Type: BLOOD SPECIMENOrdering Facility: [facility] Address: [address] [place] [address] Performed By: #### 5 7021-8 ####[facility] LABCLIA [id number] [place] [address] RBC (Bld) [#/Vol] 4.26 10*6/uL Normal 3.90-5.20 [facility] Comment on above: Order Comment: Speci men Type: BLOOD SPECIMENOrdering Facility: [facility] Address: [address] [place] [address] Performed By: #### 5 7021-8 ####[facility] LABCLIA [id number] [place] [address] WBC (Bld) [#/Vol] 12.87 10*3/uL High 3.70-11.00 [facility] Comment on above: Order Comment: Speci men Type: BLOOD SPECIMENOrdering Facility: [facility] Address: [address] [place] [address] Performed By: #### 5 7021-8 ####[facility] LABCLIA [id number] [place] [address] Comprehensive metabolic 2000 panelon 06-03-2023 Albumin [Mass/Vol] 4.0 g/dL Normal 3.9-4.9 [facility] Comment on above: Order Comment: Speci men Type: BLOOD SPECIMENOrdering Facility: [facility] Address: [address] [place] [address] Performed By: #### 2 4323-8 ####[facility] LABCLIA [id number] [place] [address] ALP [Catalytic activity/Vol] 73 U/L Normal 34-123 [facility] Comment on above: Order Comment: Speci men Type: BLOOD SPECIMENOrdering Facility: [facility] Address: [address] [place] [address] Performed By: #### 2 4323-8 ####[facility] LABCLIA [id number] [place] [address] ALT [Catalytic activity/Vol] 21 U/L Normal 7-38 [facility] Comment on above: Order Comment: Speci men Type: BLOOD SPECIMENOrdering Facility: [facility] Address: [address] [place] [address] Performed By: #### 2 4323-8 ####[facility] LABCLIA [id number] [place] [address] Anion gap [Moles/Vol] 10 mmol/L Normal 9-18 [facility] Comment on above: Order Comment: Speci men Type: BLOOD SPECIMENOrdering Facility: [facility] Address: [address] [place] [address] Performed By: #### 2 4323-8 ####[facility] LABCLIA [id number] [place] [address] AST [Catalytic activity/Vol] 10 U/L Low 13-35 [facility] Comment on above: Order Comment: Speci men Type: BLOOD SPECIMENOrdering Facility: [facility] Address: [address] [place] [address] Performed By: #### 2 4323-8 ####[facility] LABCLIA [id number] [place] [address] Bilirubin [Mass/Vol] 0.2 mg/dL Normal 0.2-1.3 [facility] Comment on above: Order Comment: Speci men Type: BLOOD SPECIMENOrdering Facility: [facility] Address: [address] [place] [address] Performed By: #### 2 4323-8 ####[facility] LABCLIA [id number] [place] [address] Calcium [Mass/Vol] 9.6 mg/dL Normal 8.5-10.2 [facility] Comment on above: Order Comment: Speci men Type: BLOOD SPECIMENOrdering Facility: [facility] Address: [address] [place] [address] Performed By: #### 2 4323-8 ####[facility] LABCLIA [id number] [place] [address] Chloride [Moles/Vol] 108 mmol/L High 97-105 [facility] Comment on above: Order Comment: Speci men Type: BLOOD SPECIMENOrdering Facility: [facility] Address: [address] [place] [address] Performed By: #### 2 4323-8 ####[facility] LABCLIA [id number] [place] [address] CO2 [Moles/Vol] 24 mmol/L Normal 22-30 [facility] Comment on above: Order Comment: Speci men Type: BLOOD SPECIMENOrdering Facility: [facility] Address: [address] [place] [address] Performed By: #### 2 4323-8 ####[facility] LABCLIA [id number] [place] [address] Creatinine [Mass/Vol] 0.70 mg/dL Normal 0.58-0.96 [facility] Comment on above: Order Comment: Semaj cortés Type: BLOOD SPECIMENOrdering Facility: [facility] Address: [address] [place] [address] Performed By: #### 2 4323-8 ####[facility] LABCLIA [id number] [place] [address] Creatinine and Glomerular filtration rate.predicted panel (S/P/Bld) 111 mL/min/1.73m??? Normal >=60 [facility] Comment on above: Order Comment: Semaj cortés Type: BLOOD SPECIMENOrdering Facility: [facility] Address: [address] [place] [address] Result Comment: Erin mated Glomerular Filtration Rate [...] actual GFR. Performed By: #### 2 4323-8 ####[facility] LABCLIA [id number] [place] [address] Glucose [Mass/Vol] 106 mg/dL High 74-99 [facility] Comment on above: Order Comment: Semaj cortés Type: BLOOD SPECIMENOrdering Facility: [facility] Address: [address] [place] [address] Result Comment: The [place] Diabetes Association (ADA) provides guidance for cutoff [...] Standards of Medical Care in Diabetes 2016, [place] [employer]. Diabetes Care. 2016.39(Suppl 1). Performed By: #### 2 4323-8 ####[facility] LABCLIA [id number] [place] [address] Potassium [Moles/Vol] 4.0 mmol/L Normal 3.7-5.1 [facility] Comment on above: Order Comment: Speci men Type: BLOOD SPECIMENOrdering Facility: [facility] Address: [address] [place] [address] Performed By: #### 2 4323-8 ####[facility] LABCLIA [id number] [place] [address] Protein [Mass/Vol] 6.8 g/dL Normal 6.3-8.0 [facility] Comment on above: Order Comment: Speci men Type: BLOOD SPECIMENOrdering Facility: [facility] Address: [address] [place] [address] Performed By: #### 2 4323-8 ####[facility] LABCLIA [id number] [place] [address] Sodium [Moles/Vol] 142 mmol/L Normal 136-144 [facility] Comment on above: Order Comment: Speci men Type: BLOOD SPECIMENOrdering Facility: [facility] Address: [address] [place] [address] Performed By: #### 2 4323-8 ####[facility] LABCLIA [id number] [place] [address] Urea nitrogen [Mass/Vol] 12 mg/dL Normal 7-21 [facility] Comment on above: Order Comment: Speci men Type: BLOOD SPECIMENOrdering Facility: [facility] Address: [address] [place] [address] Performed By: #### 2 4323-8 ####[facility] LABCLIA [id number] [place] [address] ESR Westergren method (Bld) [Velocity]on 06-03-2023 ESR (Bld) [Velocity] 35 mm/h High 0-20 [facility] Comment on above: Order Comment: Speci men Type: BLOOD SPECIMENOrdering Facility: [facility] Address: [address] [place] [address] Performed By: #### 4 537-7 ####[facility] LABIA [id number] [place] [address] [place] Ferritin [facility] Ferritin [Mass/Vol] 23.4 ng/mL Normal 14.7-205.1 [facility] Comment on above: Order Comment: Speci men Type: BLOOD SPECIMENOrdering Facility: [facility] Address: [address] [place] [address] Performed By: #### 5 0190-8, 9, 2283-8, 6-4 ####[facility] LABIA [id number] [place] [address] [place] Folate SerPl-mCncon 06-03-19 24 Folate [Mass/Vol] 8.2 ng/mL Normal >4.7 [facility] Comment on above: Order Comment: Speci men Type: BLOOD SPECIMENOrdering Facility: [facility] Address: [address] [place] [address] Performed By: #### 5 0190-8, 9, 8, 2275-4 ####[facility] LABIA [id number] [place] [address] [place] Iron and Iron binding capaci ty panelon 06-03-2023 Iron [Mass/Vol] 67 ug/dL Normal 41-186 [facility] Comment on above: Order Comment: Speci men Type: BLOOD SPECIMENOrdering Facility: [facility] Address: [address] [place] [address] Performed By: #### 5 0190-8, 9, 8, 4 ####[facility] LABCLIA [id number] [place] [id number] [place] Iron binding capacity [Mass/Vol] 395 ug/dL High 232-386 [facility] Comment on above: Order Comment: Speci men Type: BLOOD SPECIMENOrdering Facility: [facility] Address: [address] [place] [address] Performed By: #### 5 0190-8, 9, 8, 4 ####[facility] LABIA [id number] [place] [address] [place] Iron/TIBC [Molar ratio] 17.0 % Normal 15.0-57.0 [facility] Comment on above: Order Comment: Speci men Type: BLOOD SPECIMENOrdering Facility: [facility] Address: [address] [place] [address] Performed By: #### 5 0190-8, 9, 8, 4 ####[facility] LABIA [id number] [place] [address] [place] Vit [facility]12 [facility] Cobalamin (Vitamin B12) [Mass/Vol] 428 pg/mL Normal 232-1245 [facility] Comment on above: Order Comment: Speci men Type: BLOOD SPECIMENOrdering Facility: [facility] Address: [address] [place] [address] Performed By: #### 5 0190-8, 9, 8, 4 ####[facility] LABIA [id number] [place] [id number] [place] CNNURSEon 05-10-2023 CNNURSE Normal [facility] XR CERVICAL SPINE COMPLETE 4 [...] Not Available CNPNon 04-22-2023 CNPN Normal [facility] CNNURSEon 04-16-2023 CNNURSE Normal [facility] CNOVSPon 04-16-2023 CNOVSP Normal [facility] CBC W Auto Differential pane l (Bld)on 04-09-2023 Basophils (Bld) [#/Vol] 0.05 10*3/uL Normal <0.11 [facility] Comment on above: Order Comment: Speci men Type: BLOOD SPECIMENOrdering Facility: [facility] Address: [address] [place] [address] [place] [address] Performed By: #### 5 7021-8 ####[facility] LABCLIA [id number] [place] [address] Basophils/100 WBC (Bld) 0.5 % Normal [facility] Comment on above: Order Comment: Speci men Type: BLOOD SPECIMENOrdering Facility: [facility] Address: [address] [place] [address] Performed By: #### 5 7021-8 ####[facility] LABCLIA [id number] [place] [address] Differential cell count method Nom (Bld) Auto Normal [facility] Comment on above: Order Comment: Speci men Type: BLOOD SPECIMENOrdering Facility: [facility] Address: [address] [place] [address] Performed By: #### 5 7021-8 ####[facility] LABCLIA [id number] [place] [address] Eosinophils (Bld) [#/Vol] 0.09 10*3/uL Normal <0.46 [facility] Comment on above: Order Comment: Speci men Type: BLOOD SPECIMENOrdering Facility: [facility] Address: [address] [place] [address] Performed By: #### 5 7021-8 ####[facility] LABCLIA [id number] [place] [address] Eosinophils/100 WBC (Bld) 0.9 % Normal [facility] Comment on above: Order Comment: Speci men Type: BLOOD SPECIMENOrdering Facility: [facility] Address: [address] [place] [address] Performed By: #### 5 7021-8 ####[facility] LABCLIA [id number] [place] [address] Erythrocyte distribution width (RBC) [Ratio] 14.8 % Normal 11.5-15.0 [facility] Comment on above: Order Comment: Speci men Type: BLOOD SPECIMENOrdering Facility: [facility] Address: [address] [place] [address] Performed By: #### 5 7021-8 ####[facility] LABCLIA [id number] [place] [address] Hematocrit (Bld) [Volume fraction] 41.1 % Normal 36.0-46.0 [facility] Comment on above: Order Comment: Speci men Type: BLOOD SPECIMENOrdering Facility: [facility] Address: [address] [place] [address] Performed By: #### 5 7021-8 ####[facility] LABCLIA [id number] [place] [address] Hemoglobin (Bld) [Mass/Vol] 13.1 g/dL Normal 11.5-15.5 [facility] Comment on above: Order Comment: Speci men Type: BLOOD SPECIMENOrdering Facility: [facility] Address: [address] [place] [address] Performed By: #### 5 7021-8 ####[facility] LABCLIA [id number] [place] [address] Immature granulocytes (Bld) [#/Vol] 0.05 10*3/uL Normal <0.10 [facility] Comment on above: Order Comment: Speci men Type: BLOOD SPECIMENOrdering Facility: [facility] Address: [address] [place] [address] Performed By: #### 5 7021-8 ####[facility] LABCLIA [id number] [place] [address] Immature granulocytes/100 WBC (Bld) 0.5 % Normal [facility] Comment on above: Order Comment: Speci men Type: BLOOD SPECIMENOrdering Facility: [facility] Address: [address] [place] [address] Performed By: #### 5 7021-8 ####[facility] LABCLIA [id number] [place] [address] Lymphocytes (Bld) [#/Vol] 2.90 10*3/uL Normal 1.00-4.00 [facility] Comment on above: Order Comment: Speci men Type: BLOOD SPECIMENOrdering Facility: [facility] Address: [address] [place] [address] Performed By: #### 5 7021-8 ####[facility] LABCLIA [id number] [place] [address] Lymphocytes/100 WBC (Bld) 28.9 % Normal [facility] Comment on above: Order Comment: Speci men Type: BLOOD SPECIMENOrdering Facility: [facility] Address: [address] [place] [address] Performed By: #### 5 7021-8 ####[facility] LABCLIA [id number] [place] [address] MCH (RBC) [Entitic mass] 30.5 pg Normal 26.0-34.0 [facility] Comment on above: Order Comment: Speci men Type: BLOOD SPECIMENOrdering Facility: [facility] Address: [address] [place] [address] Performed By: #### 5 7021-8 ####[facility] LABCLIA [id number] [place] [address] MCHC (RBC) [Mass/Vol] 31.9 g/dL Normal 30.5-36.0 [facility] Comment on above: Order Comment: Speci men Type: BLOOD SPECIMENOrdering Facility: [facility] Address: [address] [place] [address] Performed By: #### 5 7021-8 ####[facility] LABCLIA [id number] [place] [address] MCV (RBC) [Entitic vol] 95.8 fL Normal 80.0-100.0 [facility] Comment on above: Order Comment: Speci men Type: BLOOD SPECIMENOrdering Facility: [facility] Address: [address] [place] [address] Performed By: #### 5 7021-8 ####[facility] LABCLIA [id number] [place] [address] Monocytes (Bld) [#/Vol] 0.54 10*3/uL Normal <0.87 [facility] Comment on above: Order Comment: Speci men Type: BLOOD SPECIMENOrdering Facility: [facility] Address: [address] [place] [address] Performed By: #### 5 7021-8 ####[facility] LABCLIA [id number] [place] [address] Monocytes/100 WBC (Bld) 5.4 % Normal [facility] Comment on above: Order Comment: Speci men Type: BLOOD SPECIMENOrdering Facility: [facility] Address: [address] [place] [address] Performed By: #### 5 7021-8 ####[facility] LABCLIA [id number] [place] [address] Neutrophils (Bld) [#/Vol] 6.41 10*3/uL Normal 1.45-7.50 [facility] Comment on above: Order Comment: Speci men Type: BLOOD SPECIMENOrdering Facility: [facility] Address: [address] [place] [address] Performed By: #### 5 7021-8 ####[facility] LABCLIA [id number] [place] [address] Neutrophils/100 WBC (Bld) 63.8 % Normal [facility] Comment on above: Order Comment: Speci men Type: BLOOD SPECIMENOrdering Facility: [facility] Address: [address] [place] [address] Performed By: #### 5 7021-8 ####[facility] LABIA [id number] [place] [address] Nucleated RBC (Bld) [#/Vol] 10*3/uL Normal <0.01 [facility] Comment on above: Order Comment: Speci men Type: BLOOD SPECIMENOrdering Facility: [facility] Address: [address] [place] [address] Performed By: #### 5 7021-8 ####[facility] LABCLIA [id number] [place] [address] Nucleated RBC/100 WBC (Bld) [Ratio] 0.0 /100 WBC Normal [facility] Comment on above: Order Comment: Speci men Type: BLOOD SPECIMENOrdering Facility: [facility] Address: [address] [place] [address] Performed By: #### 5 7021-8 ####[facility] LABCLIA [id number] [place] [address] Platelet mean volume (Bld) [Entitic vol] 9.4 fL Normal 9.0-12.7 [facility] Comment on above: Order Comment: Speci men Type: BLOOD SPECIMENOrdering Facility: [facility] Address: [address] [place] [address] Performed By: #### 5 7021-8 ####[facility] LABCLIA [id number] [place] [address] Platelets (Bld) [#/Vol] 290 10*3/uL Normal 150-400 [facility] Comment on above: Order Comment: Speci men Type: BLOOD SPECIMENOrdering Facility: [facility] Address: [address] [place] [address] Performed By: #### 5 7021-8 ####[facility] LABCLIA [id number] [place] [address] RBC (Bld) [#/Vol] 4.29 10*6/uL Normal 3.90-5.20 [facility] Comment on above: Order Comment: Speci men Type: BLOOD SPECIMENOrdering Facility: [facility] Address: [address] [place] [address] Performed By: #### 5 7021-8 ####[facility] LABCLIA [id number] [place] [address] WBC (Bld) [#/Vol] 10.04 10*3/uL Normal 3.70-11.00 [facility] Comment on above: Order Comment: Speci men Type: BLOOD SPECIMENOrdering Facility: [facility] Address: [address] [place] [address] Performed By: #### 5 7021-8 ####[facility] LABCLIA [id number] [place] [address] Comprehensive metabolic 2000 panelon 04-09-2023 Albumin [Mass/Vol] 4.1 g/dL Normal 3.9-4.9 [facility] Comment on above: Order Comment: Speci men Type: BLOOD SPECIMENOrdering Facility: [facility] Address: [address] [place] [address] Performed By: #### 2 4323-8 ####[facility] LABCLIA [id number] [place] [address] ALP [Catalytic activity/Vol] 74 U/L Normal 34-123 [facility] Comment on above: Order Comment: Speci men Type: BLOOD SPECIMENOrdering Facility: [facility] Address: [address] [place] [address] Performed By: #### 2 4323-8 ####[facility] LABCLIA [id number] [place] [address] ALT [Catalytic activity/Vol] 17 U/L Normal 7-38 [facility] Comment on above: Order Comment: Speci men Type: BLOOD SPECIMENOrdering Facility: [facility] Address: [address] [place] [address] Performed By: #### 2 4323-8 ####[facility] LABCLIA [id number] [place] [address] Anion gap [Moles/Vol] 12 mmol/L Normal 9-18 [facility] Comment on above: Order Comment: Speci men Type: BLOOD SPECIMENOrdering Facility: [facility] Address: [address] [place] [address] Performed By: #### 2 4323-8 ####[facility] LABCLIA [id number] [place] [address] AST [Catalytic activity/Vol] 11 U/L Low 13-35 [facility] Comment on above: Order Comment: Speci men Type: BLOOD SPECIMENOrdering Facility: [facility] Address: [address] [place] [address] Performed By: #### 2 4323-8 ####[facility] LABCLIA [id number] [place] [address] Bilirubin [Mass/Vol] 0.2 mg/dL Normal 0.2-1.3 [facility] Comment on above: Order Comment: Speci men Type: BLOOD SPECIMENOrdering Facility: [facility] Address: [address] [place] [address] Performed By: #### 2 4323-8 ####[facility] LABCLIA [id number] [place] [address] Calcium [Mass/Vol] 9.4 mg/dL Normal 8.5-10.2 [facility] Comment on above: Order Comment: Speci men Type: BLOOD SPECIMENOrdering Facility: [facility] Address: [address] [place] [address] Performed By: #### 2 4323-8 ####[facility] LABCLIA [id number] [place] [address] Chloride [Moles/Vol] 106 mmol/L High 97-105 [facility] Comment on above: Order Comment: Speci men Type: BLOOD SPECIMENOrdering Facility: [facility] Address: [address] [place] [address] Performed By: #### 2 4323-8 ####[facility] LABCLIA [id number] [place] [address] CO2 [Moles/Vol] 26 mmol/L Normal 22-30 [facility] Comment on above: Order Comment: Speci men Type: BLOOD SPECIMENOrdering Facility: [facility] Address: [address] [place] [id number] Performed By: #### 2 4323-8 ####[facility] LABCLIA [id number] [place] [address] Creatinine [Mass/Vol] 0.89 mg/dL Normal 0.58-0.96 [facility] Comment on above: Order Comment: Speci men Type: BLOOD SPECIMENOrdering Facility: [facility] Address: [address] [place] [address] Performed By: #### 2 4323-8 ####[facility] LABCLIA [id number] [place] [address] Creatinine and Glomerular filtration rate.predicted panel (S/P/Bld) 83 mL/min/1.73m??? Normal >=60 [facility] Comment on above: Order Comment: Speci men Type: BLOOD SPECIMENOrdering Facility: [facility] Address: [address] [place] [address] Result Comment: Erin mated Glomerular Filtration Rate [...] actual GFR. Performed By: #### 2 4323-8 ####[facility] LABCLIA [id number] [place] [address] Glucose [Mass/Vol] 120 mg/dL High 74-99 [facility] Comment on above: Order Comment: Speci men Type: BLOOD SPECIMENOrdering Facility: [facility] Address: [address] [place] [address] Result Comment: The [place] [employer] (ADA) provides guidance for cutoff [...] Standards of Medical Care in Diabetes 2016, [place] [employer]. Diabetes Care. 2016.39(Suppl 1). Performed By: #### 2 4323-8 ####[facility] LABCLIA [id number] [place] [address] Potassium [Moles/Vol] 3.7 mmol/L Normal 3.7-5.1 [facility] Comment on above: Order Comment: Speci men Type: BLOOD SPECIMENOrdering Facility: [facility] Address: [address] [place] [address] Performed By: #### 2 4323-8 ####[facility] LABCLIA [id number] [place] [address] Protein [Mass/Vol] 6.7 g/dL Normal 6.3-8.0 [facility] Comment on above: Order Comment: Speci men Type: BLOOD SPECIMENOrdering Facility: [facility] Address: [address] [place] [address] Performed By: #### 2 4323-8 ####[facility] LABCLIA [id number] [place] [address] Sodium [Moles/Vol] 144 mmol/L Normal 136-144 [facility] Comment on above: Order Comment: Speci men Type: BLOOD SPECIMENOrdering Facility: [facility] Address: [address] [place] [address] Performed By: #### 2 4323-8 ####[facility] LABCLIA [id number] [place] [address] Urea nitrogen [Mass/Vol] 24 mg/dL High 7-21 [facility] Comment on above: Order Comment: Speci men Type: BLOOD SPECIMENOrdering Facility: [facility] Address: [address] [place], [place] [address] Performed By: #### 2 4323-8 ####[facility] LABCLIA [id number] [place] [address] Ferritin SerPl-mCalon 2022 Ferritin [Mass/Vol] 21.2 ng/mL Normal 14.7-205.1 [facility] Comment on above: Order Comment: Speci men Type: BLOOD SPECIMENOrdering Facility: [facility] Address: [address] [place] [address] Performed By: #### 2 284-8, 78161-9, 2-9, 6-4 ####[facility] LABIA [id number] [place] [address] [place] Folate SerPl-mCncon 04-09-20 Folate [Mass/Vol] 10.7 ng/mL Normal >4.7 [facility] Comment on above: Order Comment: Speci men Type: BLOOD SPECIMENOrdering Facility: [facility] Address: [address] [place] [address] Performed By: #### 2 284-8, 75196-6, 2131-9, 2275-4 ####[facility] LABIA [id number] [place] [address] [place] INSULIN ANTIBODY BLDon 04-09 Insulin Ab Qn (S) <0.4 Normal <0.4 [facility] Comment on above: Order Comment: Speci men Type: BLOOD SPECIMENOrdering Facility: [facility] Address: [address] [place] [address] Result Comment: Anti -insulin antibody test is used as an aid in diagnosis and prognosis of autoimmune diabetes mellitus in combination with other tests such as anti-GAD65 and anti-IA-2 antibody. A single negative result cannot rule out autoimmune diabetes mellitus. The test is not reliable in patients who had previously received exogenous insulin. Clinical correlation is required. Performed By: #### I NSLAB ####[facility] LABCLIA [id number] [place] [address] [place] INSULIN ANTIBODY, QUALITATIVE Negative Normal Negative [facility] Comment on above: Order Comment: Speci men Type: BLOOD SPECIMENOrdering Facility: [facility] Address: [address] [place] [address] Performed By: #### I NSLAB ####[facility] LABCLIA [id number] [place] [address] [place] Insulin SerPl-aCncon 023 Insulin Qn 266.5 u[IU]/mL High 3.0-25.0 [facility] Comment on above: Order Comment: Speci men Type: BLOOD SPECIMENOrdering Facility: [facility] Address: [address] [place] [address] Performed By: #### 2 0448-7 ####[facility] LABCLIA [id number] [place] [address] [place] Iron and Iron binding capaci ty panelon 04-09-2023 Iron [Mass/Vol] 105 ug/dL Normal 41-186 [facility] Comment on above: Order Comment: Speci men Type: BLOOD SPECIMENOrdering Facility: [facility] Address: [address] [place] [address] Performed By: #### 2 284-8, 68942-6, 2131-9, 6-4 ####[facility] LABCLIA [id number] [place] [address] [place] Iron binding capacity [Mass/Vol] 414 ug/dL High 232-386 [facility] Comment on above: Order Comment: Speci men Type: BLOOD SPECIMENOrdering Facility: [facility] Address: [address] [place] [address] Performed By: #### 2 284-8, 37640-8, 2-9, 6-4 ####[facility] LABCLIA [id number] [place] [address] [place] Iron/TIBC [Molar ratio] 25.4 % Normal 15.0-57.0 [facility] Comment on above: Order Comment: Speci men Type: BLOOD SPECIMENOrdering Facility: [facility] Address: [place] [address] Performed By: #### 2 284-8, 76265-4, 2-9, 2275-4 ####[facility] LABCLIA [id number] [place] [address] [place] Vit B12 SerPl-ncon 17- 023 Cobalamin (Vitamin B12) [Mass/Vol] 370 pg/mL Normal 232-1245 [facility] Comment on above: Order Comment: Speci men Type: BLOOD SPECIMENOrdering Facility: [facility] Address: [place] [address] Performed By: #### 2 284-8, 48999-9, 9, 4 ####[facility] LABCLIA [id number] [place] [address] [place] CNNURSEon 03-19-2023 CNNURSE Normal [facility] CNNURSEon 03-11-2023 CNNURSE Normal [facility] CNPNon 03-01-2023 CNPN Normal [facility] CNNURSEon 02-19-2023 CNNURSE Normal [facility] CNOVSPon 02-19-2023 CNOVSP Normal [facility] B2 Microglob SerPl-mCncon Rsyz-4-Ncsoqilspugoc [Mass/Vol] 1.9 ug/mL Normal 0.8-2.4 [facility] Comment on above: Order Comment: Speci men Type: BLOOD SPECIMENOrdering Facility: [facility] Address: [address] [place], [place] [address] Result Comment: Beta -2 Microglobulin test is performed using the [employer] immunoturbidimetric method. Results obtained with different methods or kits cannot be used interchangeably. Performed By: #### 1 952-1, 6-4, 67222-8 ####[facility] LABCLIA [id number] [place] [address] [address] [place] CBC W Auto Differential pane l (Bld)on 02-11-2023 Basophils (Bld) [#/Vol] 0.08 10*3/uL Normal <0.11 [facility] Comment on above: Order Comment: Speci men Type: BLOOD SPECIMENOrdering Facility: [facility] Address: [address] [place] [address] Performed By: #### 5 7021-8 ####[facility] LABCLIA [id number] [place] [address] Basophils/100 WBC (Bld) 0.8 % Normal [facility] Comment on above: Order Comment: Speci men Type: BLOOD SPECIMENOrdering Facility: [facility] Address: [address] [place] [address] Performed By: #### 5 7021-8 ####[facility] LABCLIA [id number] [place] [address] Differential cell count method Nom (Bld) Auto Normal [facility] Comment on above: Order Comment: Speci men Type: BLOOD SPECIMENOrdering Facility: [facility] Address: [address] [place] [address] Performed By: #### 5 7021-8 ####[facility] LABCLIA [id number] [place] [address] Eosinophils (Bld) [#/Vol] 0.16 10*3/uL Normal <0.46 [facility] Comment on above: Order Comment: Speci men Type: BLOOD SPECIMENOrdering Facility: [facility] Address: [address] [place] [address] Performed By: #### 5 7021-8 ####[facility] LABCLIA [id number] [place] [address] Eosinophils/100 WBC (Bld) 1.6 % Normal [facility] Comment on above: Order Comment: Speci men Type: BLOOD SPECIMENOrdering Facility: [facility] Address: [address] [place] [address] Performed By: #### 5 7021-8 ####[facility] LABCLIA [id number] [place] [address] Erythrocyte distribution width (RBC) [Ratio] 14.6 % Normal 11.5-15.0 [facility] Comment on above: Order Comment: Speci men Type: BLOOD SPECIMENOrdering Facility: [facility] Address: [address] [place] [address] Performed By: #### 5 7021-8 ####[facility] LABIA [id number] [place] [address] Hematocrit (Bld) [Volume fraction] 41.0 % Normal 36.0-46.0 [facility] Comment on above: Order Comment: Speci men Type: BLOOD SPECIMENOrdering Facility: [facility] Address: [address] [place] [address] Performed By: #### 5 7021-8 ####[facility] LABIA [id number] [place] [address] Hemoglobin (Bld) [Mass/Vol] 13.2 g/dL Normal 11.5-15.5 [facility] Comment on above: Order Comment: Speci men Type: BLOOD SPECIMENOrdering Facility: [facility] Address: [address] [place] [address] Performed By: #### 5 7021-8 ####[facility] LABCLIA [id number] [place] [address] Immature granulocytes (Bld) [#/Vol] 0.07 10*3/uL Normal <0.10 [facility] Comment on above: Order Comment: Speci men Type: BLOOD SPECIMENOrdering Facility: [facility] Address: [address] [place] [address] Performed By: #### 5 7021-8 ####[facility] LABCLIA [id number] [place] [address] Immature granulocytes/100 WBC (Bld) 0.7 % Normal [facility] Comment on above: Order Comment: Speci men Type: BLOOD SPECIMENOrdering Facility: [facility] Address: [address] [place] [address] Performed By: #### 5 7021-8 ####[facility] LABCLIA [id number] [place] [address] Lymphocytes (Bld) [#/Vol] 2.29 10*3/uL Normal 1.00-4.00 [facility] Comment on above: Order Comment: Speci men Type: BLOOD SPECIMENOrdering Facility: [facility] Address: [address] [place] [address] Performed By: #### 5 7021-8 ####[facility] LABCLIA [id number] [place] [address] Lymphocytes/100 WBC (Bld) 22.4 % Normal [facility] Comment on above: Order Comment: Speci men Type: BLOOD SPECIMENOrdering Facility: [facility] Address: [address] [place] [address] Performed By: #### 5 7021-8 ####[facility] LABCLIA [id number] [place] [address] MCH (RBC) [Entitic mass] 30.6 pg Normal 26.0-34.0 [facility] Comment on above: Order Comment: Speci men Type: BLOOD SPECIMENOrdering Facility: [facility] Address: [address] [place] [address] Performed By: #### 5 7021-8 ####[facility] LABCLIA [id number] [place] [address] MCHC (RBC) [Mass/Vol] 32.2 g/dL Normal 30.5-36.0 [facility] Comment on above: Order Comment: Speci men Type: BLOOD SPECIMENOrdering Facility: [facility] Address: [address] [place], [place] [address] Performed By: #### 5 7021-8 ####[facility] LABCLIA [id number] [place] [address] MCV (RBC) [Entitic vol] 94.9 fL Normal 80.0-100.0 [facility] Comment on above: Order Comment: Speci men Type: BLOOD SPECIMENOrdering Facility: [facility] Address: [address] [place] [address] Performed By: #### 5 7021-8 ####[facility] LABCLIA [id number] [place] [address] Monocytes (Bld) [#/Vol] 0.62 10*3/uL Normal <0.87 [facility] Comment on above: Order Comment: Speci men Type: BLOOD SPECIMENOrdering Facility: [facility] Address: [address] [place] [address] Performed By: #### 5 7021-8 ####[facility] LABCLIA [id number] [place] [address] Monocytes/100 WBC (Bld) 6.1 % Normal [facility] Comment on above: Order Comment: Speci men Type: BLOOD SPECIMENOrdering Facility: [facility] Address: [address] [place] [address] Performed By: #### 5 7021-8 ####[facility] LABCLIA [id number] [place] [address] Neutrophils (Bld) [#/Vol] 6.99 10*3/uL Normal 1.45-7.50 [facility] Comment on above: Order Comment: Speci men Type: BLOOD SPECIMENOrdering Facility: [facility] Address: [address] [place] [address] Performed By: #### 5 7021-8 ####[facility] LABCLIA [id number] [place] [address] Neutrophils/100 WBC (Bld) 68.4 % Normal [facility] Comment on above: Order Comment: Speci men Type: BLOOD SPECIMENOrdering Facility: [facility] Address: [address] [place] [address] Performed By: #### 5 7021-8 ####[facility] LABCLIA [id number] [place] [address] Nucleated RBC (Bld) [#/Vol] 10*3/uL Normal <0.01 [facility] Comment on above: Order Comment: Speci men Type: BLOOD SPECIMENOrdering Facility: [facility] Address: [address] [place] [address] Performed By: #### 5 7021-8 ####[facility] LABCLIA [id number] [place] [address] Nucleated RBC/100 WBC (Bld) [Ratio] 0.0 /100 WBC Normal [facility] Comment on above: Order Comment: Speci men Type: BLOOD SPECIMENOrdering Facility: [facility] Address: [address] [place] [address] Performed By: #### 5 7021-8 ####CADDO MILLSMO [facility] LABIA [id number] [place] [address] Platelet mean volume (Bld) [Entitic vol] 9.6 fL Normal 9.0-12.7 [facility] Comment on above: Order Comment: Speci men Type: BLOOD SPECIMENOrdering Facility: [facility] Address: [address] [place] [address] Performed By: #### 5 7021-8 ####[facility] LABCLIA [id number] [place] [address] Platelets (Bld) [#/Vol] 258 10*3/uL Normal 150-400 [facility] Comment on above: Order Comment: Speci men Type: BLOOD SPECIMENOrdering Facility: [facility] Address: [address] [place] [address] Performed By: #### 5 7021-8 ####[facility] LABCLIA [id number] [place] [address] RBC (Bld) [#/Vol] 4.32 10*6/uL Normal 3.90-5.20 [facility] Comment on above: Order Comment: Speci men Type: BLOOD SPECIMENOrdering Facility: [facility] Address: [address] [place] [address] Performed By: #### 5 7021-8 ####[facility] LABCLIA [id number] [place] [address] WBC (Bld) [#/Vol] 10.21 10*3/uL Normal 3.70-11.00 [facility] Comment on above: Order Comment: Speci men Type: BLOOD SPECIMENOrdering Facility: [facility] Address: [address] [place] [address] Performed By: #### 5 7021-8 ####[facility] LABCLIA [id number] [place] [address] Calcium.ionized [Moles/Vol]o n 02-11-2023 Calcium.ionized (Bld) [Mass/Vol] 1.32 mmol/L High 1.08-1.30 [facility] Comment on above: Order Comment: Speci men Type: BLOOD SPECIMENOrdering Facility: [facility] Address: [address] [place] [address] Performed By: #### 1 995-0 ####[facility] LABCLIA [id number] [facility] [id number] [address] [place] Calcium.ionized adjusted to pH 7.4 (Bld) [Moles/Vol] 1.27 mmol/L Normal 1.08-1.30 [facility] Comment on above: Order Comment: Speci men Type: BLOOD SPECIMENOrdering Facility: [facility] Address: [address] [place] [address] Performed By: #### 1 995-0 ####[facility] LABCLIA [id number] [facility]ITALManolo [place] [address] [place] Comprehensive metabolic 2000 panelon 02-11-2023 Albumin [Mass/Vol] 4.0 g/dL Normal 3.9-4.9 [facility] Comment on above: Order Comment: Speci men Type: BLOOD SPECIMENOrdering Facility: [facility] Address: [address] [place] [address] Performed By: #### 2 4323-8, 2532-0, 3084-1, 7-1 ####[facility]IGINVDAPHNE [facility] LABCLIA [id number] [place] [address] ALP [Catalytic activity/Vol] 75 U/L Normal 34-123 [facility] Comment on above: Order Comment: Speci men Type: BLOOD SPECIMENOrdering Facility: [facility] Address: [address] [address] Performed By: #### 2 4323-8, 2532-0, 4-1, 2776-1 ####[facility] LABIA [id number] [place] [address] ALT [Catalytic activity/Vol] 21 U/L Normal 7-38 [facility] Comment on above: Order Comment: Speci men Type: BLOOD SPECIMENOrdering Facility: [facility] Address: [address] [place] [address] Performed By: #### 2 4323-8, 2532-0, 4-1, 2776-1 ####[facility] LABIA [id number] [place] [address] Anion gap [Moles/Vol] 11 mmol/L Normal 9-18 [facility] Comment on above: Order Comment: Speci men Type: BLOOD SPECIMENOrdering Facility: [facility] Address: [address] [place] [address] Performed By: #### 2 4323-8, 2532-0, 3084-1, 2777-1 ####[facility] LABCLIA [id number] [place] [address] AST [Catalytic activity/Vol] 11 U/L Low 13-35 [facility] Comment on above: Order Comment: Speci men Type: BLOOD SPECIMENOrdering Facility: [facility] Address: [address] [place] [address] Performed By: #### 2 4323-8, 2532-0, 3084-1, 277-1 ####JULIAN [facility] LABCLIA [id number] [place] [address] Bilirubin [Mass/Vol] mg/dL Low 0.2-1.3 [facility] Comment on above: Order Comment: Speci men Type: BLOOD SPECIMENOrdering Facility: [facility] Address: [address] [place] [address] Performed By: #### 2 4323-8, 2532-0, 308-1, 277-1 ####[facility]IAN [facility] LABIA [id number] [place] [address] Calcium [Mass/Vol] 9.7 mg/dL Normal 8.5-10.2 [facility] Comment on above: Order Comment: Speci men Type: BLOOD SPECIMENOrdering Facility: [facility] Address: [address] [place] [address] Performed By: #### 2 4323-8, 2532-0, 3084-1, 277-1 ####[facility] LABIA [id number] [place] [address] Chloride [Moles/Vol] 107 mmol/L High 97-105 [facility] Comment on above: Order Comment: Speci men Type: BLOOD SPECIMENOrdering Facility: [facility] Address: [address] [place] [address] Performed By: #### 2 4323-8, 2532-0, 3084-1, 2777-1 ####[facility] LABCLIA [id number] [place] [address] CO2 [Moles/Vol] 23 mmol/L Normal 22-30 [facility] Comment on above: Order Comment: Speci men Type: BLOOD SPECIMENOrdering Facility: [facility] Address: [address] [place] [address] Performed By: #### 2 4323-8, 2532-0, 3084-1, 2777-1 ####[facility] LABCLIA [id number] [place] [address] Creatinine [Mass/Vol] 0.76 mg/dL Normal 0.58-0.96 [facility] Comment on above: Order Comment: Speci men Type: BLOOD SPECIMENOrdering Facility: [facility] Address: [address] [place] [address] Performed By: #### 2 4323-8, 2532-0, 3084-1, 2776-1 ####[facility] LABCLIA [id number] [place] [address] Creatinine and Glomerular filtration rate.predicted panel (S/P/Bld) 100 mL/min/1.73m??? Normal >=60 [facility] Comment on above: Order Comment: Semaj cortés Type: BLOOD SPECIMENOrdering Facility: [facility] Address: [address] [place] [address] Result Comment: Erin mated Glomerular Filtration Rate [...] GFR. Performed By: #### 2 4323-8, 2532-0, 3084-1, 2776-1 ####[facility] LABCLIA [id number] [place] [address] Glucose [Mass/Vol] 164 mg/dL High 74-99 [facility] Comment on above: Order Comment: Speci men Type: BLOOD SPECIMENOrdering Facility: [facility] Address: [address] [place], [place] [id number] Result Comment: The [place] Diabetes Association (ADA) provides guidance for cutoff [...] Standards of Medical Care in Diabetes 2016, [place] [employer] Association. Diabetes Care. 2016.39(Suppl 1). Performed By: #### 2 4323-8, 2532-0, 3084-1, 7-1 ####[facility] LABCLIA [id number] [place] [address] Potassium [Moles/Vol] 4.0 mmol/L Normal 3.7-5.1 [facility] Comment on above: Order Comment: [facility] Type: BLOOD SPECIMENOrdering Facility: [facility] Address: [address] [place], [place] [id number] Performed By: #### 2 4323-8, 2532-0, 3084-1, 7-1 ####[facility] LABCLIA [id number] [place] [address] Protein [Mass/Vol] 6.5 g/dL Normal 6.3-8.0 [facility] Comment on above: Order Comment: Leolai men Type: BLOOD SPECIMENOrdering Facility: [facility] Address: [address] [place] [id number] Performed By: #### 2 4323-8, 2532-0, 3084-1, 7-1 ####[facility] LABCLIA [id number] [place] [address] Sodium [Moles/Vol] 141 mmol/L Normal 136-144 [facility] Comment on above: Order Comment: Speci men Type: BLOOD SPECIMENOrdering Facility: [facility] Address: [address] [place] [address] Performed By: #### 2 4323-8, 2532-0, 3084-1, 2777-1 ####[facility] LABCLIA [id number] [place] [address] Urea nitrogen [Mass/Vol] 15 mg/dL Normal 7-21 [facility] Comment on above: Order Comment: Speci men Type: BLOOD SPECIMENOrdering Facility: [facility] Address: [address] [place] [address] Performed By: #### 2 4323-8, 2532-0, 3084-1, 2777-1 ####[facility] LABCLIA [id number] [place] [address] Ferritin SerPl-mCncon 2022 Ferritin [Mass/Vol] 34.2 ng/mL Normal 14.7-205.1 [facility] Comment on above: Order Comment: Speci men Type: BLOOD SPECIMENOrdering Facility: [facility] Address: [address] [place] [address] Performed By: #### 1 952-1, 2276-4, 57209-5 ####[facility] LABCLIA [id number] [facility] [id number] [place] [address] OF [facility] Folate SerPl-mCncon 02-12-20 23 Folate [Mass/Vol] ng/mL Normal >4.7 [facility] Comment on above: Order Comment: Speci men Type: BLOOD SPECIMENOrdering Facility: [facility] Address: [address] [place] [address] Result Comment: A re sult of > 20 ng/mL is not necessarily indicative of a pathologic or treatable condition: it reflects a limitation of the test methodology.Assay reference range: 4.8 to 24.2 ng/mL. Suitable for detection of folate deficiency.Reference:Folate III (Folate III) [package insert V 1.0 Monegasque]. [facility], [place], [place]: March 2015. Performed By: #### 2 284-8, 2132-9, 2885-2 ####[facility] LABCLIA [id number] IMMUNOFIXATION SCREEN, SERUM on 02-11-2023 MPA RESULT No M protein is identified. Normal No M protein is identified. [facility] Comment on above: Order Comment: Speci men Type: BLOOD SPECIMENOrdering Facility: [facility] Address: [address] [place] [address] Performed By: #### I FESC ####[facility] LABIA [id number] OF [facility] STAFF REVIEW (MPA) Reviewed by Daphne vyas M.D. Normal [facility] Comment on above: Order Comment: Speci men Type: BLOOD SPECIMENOrdering Facility: [facility] Address: [address] [address] Performed By: #### I FESC ####[facility] LABIA [id number] [place] [address] [place] IMMUNOGLOBULINS GAMon 2022 IgA [Mass/Vol] 178 mg/dL Normal 70-400 [facility] Comment on above: Order Comment: Speci men Type: BLOOD SPECIMENOrdering Facility: [facility] Address: [address] [address] Performed By: #### S ERIMM ####[facility] [id number] [address] [place] IgG [Mass/Vol] 534 mg/dL Low 700-1600 [facility] Comment on above: Order Comment: Speci men Type: BLOOD SPECIMENOrdering Facility: [facility] Address: [address] [address] Performed By: #### S ERIMM ####[facility] LABCL[facility] [id number] [place] [address] [place] IgM [Mass/Vol] 453 mg/dL High 40-230 [facility] [facility] Comment on above: Order Comment: Speci men Type: BLOOD SPECIMENOrdering Facility: [facility] Address: [address] [address] Performed By: #### S ERIMM ####[facility] LABCLIA [id number] [place] [address] [place] Iron and Iron binding capaci ty panelon 02-11-2023 Iron [Mass/Vol] 55 ug/dL Normal 41-186 [facility] Comment on above: Order Comment: Speci men Type: BLOOD SPECIMENOrdering Facility: [facility] Address: [address] [place] [address] Performed By: #### 1 952-1, 2276-4, 40456-6 ####[facility] LABCLIA [id number] [place] [address] [place] Iron binding capacity [Mass/Vol] 339 ug/dL Normal 232-386 [facility] Comment on above: Order Comment: Speci men Type: BLOOD SPECIMENOrdering Facility: [facility] Address: [address] [place] [address] Performed By: #### 1 952-1, 2276-4, 02459-6 ####[facility] LABCLIA [id number] [place] [address] [place] Iron/TIBC [Molar ratio] 16.2 % Normal 15.0-57.0 [facility] Comment on above: Order Comment: Speci men Type: BLOOD SPECIMENOrdering Facility: [facility] Address: [address] [address] Performed By: #### 1 952-1, 2276-4, 26002-5 ####[facility] LABCLIA [id number] [address] [place] KAPPA/FARMER,FREE,SERon 2022 Immunoglobulin light chains.kappa.free (S) [Mass/Vol] 13.1 mg/L Normal 3.3-19.4 [facility] Comment on above: Order Comment: Speci men Type: BLOOD SPECIMENOrdering Facility: [facility] Address: [address] [place] [address] Result Comment: Rare ly, increased serum free light chains levels may not be detected or accurately quantified due to prozone phenomenon or in high viscosity samples using this immunoturbidimetric assay. Correlation with other laboratory results and clinical findings is recommended.The [place] Free Light Chain was performed using the Binding Site Optilite immunoturbidimetric method. Result obtained with different assay methods or kits cannot be used interchangeably. Performed By: #### K LFRS ####[facility] LABCLIA [id number] [address] [place] Immunoglobulin light chains.kappa/Immunog lobulin light chains.lambda (S) [Mass ratio] 1.22 Normal 0.26-1.65 [facility] Comment on above: Order Comment: Speci men Type: BLOOD SPECIMENOrdering Facility: [facility] Address: [address] [place] [address] Performed By: #### K LFRS ####[facility] LABCLIA [id number] [address] [place] Immunoglobulin light chains.lambda.free [Mass/Vol] 10.7 mg/L Normal 5.7-26.3 [facility] Comment on above: Order Comment: Speci men Type: BLOOD SPECIMENOrdering Facility: [facility] Address: [address] [place] [address] Result Comment: Rare ly, increased serum free [...] used interchangeably. Performed By: #### K LFRS ####[facility] LABIA [id number] [place] [address] [place] LDH SerPl-cCncon 02-11-2023 LDH [Catalytic activity/Vol] 190 U/L Normal 135-214 [facility] Comment on above: Order Comment: Speci men Type: BLOOD SPECIMENOrdering Facility: [facility] Address: [address] [place] [address] Result Comment: Hemo lysis present. The origin [...] indicated. Performed By: #### 2 4323-8, 2532-0, 3084-1, 2777-1 ####[facility] LABCLIA [id number] [place] [address] PROTEIN ELECTROPHORESIS SERU M (P)on 02-11-2023 Albumin [Mass/Vol] 3.61 g/dL Normal 3.43-5.41 [facility] Comment on above: Order Comment: Speci men Type: BLOOD SPECIMENOrdering Facility: [facility] Address: [address] [place] [address] Performed By: #### L [id number] ####[facility] LABIA [id number] [place] [address] [place] Alpha 1 globulin Elph [Mass/Vol] 0.31 g/dL Normal 0.18-0.43 [facility] Comment on above: Order Comment: Speci men Type: BLOOD SPECIMENOrdering Facility: [facility] Address: [address] [place] [address] Performed By: #### L [id number] ####[facility] LABIA [id number] [address] [place] Alpha 2 globulin Elph [Mass/Vol] 0.76 g/dL Normal 0.42-0.98 [facility] Comment on above: Order Comment: Speci men Type: BLOOD SPECIMENOrdering Facility: [facility] Address: [address] [place] [address] Performed By: #### L [id number] ####[facility] LABIA [id number] [address] [place] Beta globulin Elph [Mass/Vol] 0.85 g/dL Normal 0.61-1.17 [facility] Comment on above: Order Comment: Speci men Type: BLOOD SPECIMENOrdering Facility: [facility] Address: [address] [place] [address] Performed By: #### L [id number] ####[facility] LABIA [id number] [address] OF [facility] Gamma globulin Elph [Mass/Vol] 0.66 g/dL Normal 0.53-1.51 [facility] Comment on above: Order Comment: Speci men Type: BLOOD SPECIMENOrdering Facility: [facility] Address: [address] [place] [address] Performed By: #### L [id number] ####[facility] [id number] [address] [place] M-PROTEIN LOCATION Normal [facility] Comment on above: Order Comment: Speci men Type: BLOOD SPECIMENOrdering Facility: [facility] Address: [address] [place] [address] Result Comment: Not Applicable. Performed By: #### L [id number] ####[facility] LABIA [id number] [place] [address] [place] Protein Fractions [Interp] No definitive M protein is identified on protein electrophoresis. Normal No definitive M protein is identified on protein electrophor esis. [facility] Comment on above: Order Comment: Speci men Type: BLOOD SPECIMENOrdering Facility: [facility] Address: [address] [place] [address] Performed By: #### L [id number] ####[facility] LABCLIA [id number] [address] [place] Protein.monoclonal Elph [Mass/Vol] 0.00 g/dL Normal <=0.00 [facility] Comment on above: Order Comment: Speci men Type: BLOOD SPECIMENOrdering Facility: [facility] Address: [address] [place] [address] Performed By: #### L [id number] ####[facility] LABCLIA [id number] [address] [place] SPE STAFF REVIEW Reviewed by Daphne vyas M.D. [facility] Comment on above: Order Comment: Speci men Type: BLOOD SPECIMENOrdering Facility: [facility] Address: [address] [place] [address] Performed By: #### L [id number] ####[facility] LABCLIA [id number] [address] [place] Phosphate SerPl-mCncon 02-11 Phosphate [Mass/Vol] 3.4 mg/dL Normal 2.7-4.8 [facility] Comment on above: Order Comment: Speci men Type: BLOOD SPECIMENOrdering Facility: [facility] Address: [address] [place] [address] Performed By: #### 2 4323-8, 2532-0, 3084-1, 2777-1 ####[facility] LABCLIA [id number] [place] [address] Prot SerPl-mCncon 02-11-2023 Protein [Mass/Vol] 6.2 g/dL Low 6.3-8.0 [facility] Comment on above: Order Comment: Speci men Type: BLOOD SPECIMENOrdering Facility: [facility] Address: [address] [place] [address] Performed By: #### 2 284-8, 2132-9, 2885-2 ####[facility] LABCLIA [id number] [place] [address] [place] Urate SerPl-mCncon 3 Urate [Mass/Vol] 4.3 mg/dL Normal 2.5-6.6 [facility] Comment on above: Order Comment: Speci men Type: BLOOD SPECIMENOrdering Facility: [facility] Address: [address] [address] Performed By: #### 2 4323-8, 2532-0, 3084-1, 2777-1 ####[facility] LABCLIA [id number] [place] [address] Vit B12 SerPl-mCncon 023 Cobalamin (Vitamin B12) [Mass/Vol] 598 pg/mL Normal 232-1245 [facility] Comment on above: Order Comment: Speci men Type: BLOOD SPECIMENOrdering Facility: [facility] Address: [address] [place], [place] [id number] Performed By: #### 2 284-8, 2132-9, 2885-2 ####[facility] LABCLIA [id number] [place] [address] [place] CNPNon 02-04-2023 CNPN Normal [facility] CNPNon 01-24-2023 CNPN Normal [facility] 25(OH)D3 SerPl-mCncon 2022 25-hydroxyvitamin D3 [Mass/Vol] 25.1 ng/mL Low 31.0-80.0 [facility] Comment on above: Order Comment: Speci men Type: BLOOD SPECIMENOrdering Facility: [facility] Address: [address] [place], [place] [address] Result Comment: Clas sification of 25 [place] Vitamin D status:Deficiency/Insufficiency: < or = 30 ng/ml.Sufficiency/Optimal Levels: 31-80 ng/mLToxicity: > 100 ng/mL.Test performed by chemiluminescent immunoassay. Performed By: #### 1 989-3 ####[facility] LABCLIA [id number] YAYOSaúl [facility] [id number] CBC panel Auto (Bld)on 01-22 Erythrocyte distribution width (RBC) [Ratio] 14.8 % Normal 11.5-15.0 [facility] Comment on above: Order Comment: Speci men Type: BLOOD SPECIMENOrdering Facility: [facility] Address: [address] [address] Performed By: #### 5 8410-2 ####[facility] LABCLIA [id number] [place] [address] Hematocrit (Bld) [Volume fraction] 40.9 % Normal 36.0-46.0 [facility] Comment on above: Order Comment: Speci men Type: BLOOD SPECIMENOrdering Facility: [facility] Address: [address] [address] Performed By: #### 5 8410-2 ####[facility] LABIA [id number] [place] [address] Hemoglobin (Bld) [Mass/Vol] 13.4 g/dL Normal 11.5-15.5 [facility] Comment on above: Order Comment: Speci men Type: BLOOD SPECIMENOrdering Facility: [facility] Address: [address] [address] Performed By: #### 5 8410-2 ####[facility] LABIA [id number] [place] [address] MCH (RBC) [Entitic mass] 30.1 pg Normal 26.0-34.0 [facility] Comment on above: Order Comment: Speci men Type: BLOOD SPECIMENOrdering Facility: [facility] Address: [address] [address] Performed By: #### 5 8410-2 ####[facility] LABCLIA [id number] [place] [address] MCHC (RBC) [Mass/Vol] 32.8 g/dL Normal 30.5-36.0 [facility] Comment on above: Order Comment: Speci men Type: BLOOD SPECIMENOrdering Facility: [facility] Address: [address] [place] [address] Performed By: #### 5 8410-2 ####[facility] LABIA [id number] [place] [address] MCV (RBC) [Entitic vol] 91.9 fL Normal 80.0-100.0 [facility] Comment on above: Order Comment: Speci men Type: BLOOD SPECIMENOrdering Facility: [facility] Address: [address] [place] [address] Performed By: #### 5 8410-2 ####[facility] LABIA [id number] [place] [address] Nucleated RBC (Bld) [#/Vol] 10*3/uL Normal <0.01 [facility] Comment on above: Order Comment: Speci men Type: BLOOD SPECIMENOrdering Facility: [facility] Address: [address] [place] [address] Performed By: #### 5 8410-2 ####[facility] LABIA [id number] [place] [address] Platelet mean volume (Bld) [Entitic vol] 9.6 fL Normal 9.0-12.7 [facility] Comment on above: Order Comment: Speci men Type: BLOOD SPECIMENOrdering Facility: [facility] Address: [address] [place] [address] Performed By: #### 5 8410-2 ####[facility] LABIA [id number] [place] [address] Platelets (Bld) [#/Vol] 285 10*3/uL Normal 150-400 [facility] Comment on above: Order Comment: Speci men Type: BLOOD SPECIMENOrdering Facility: [facility] Address: [address] [address] Performed By: #### 5 8410-2 ####[facility] LABCLIA [id number] [place] [address] RBC (Bld) [#/Vol] 4.45 10*6/uL Normal 3.90-5.20 [facility] Comment on above: Order Comment: Speci men Type: BLOOD SPECIMENOrdering Facility: [facility] Address: [address] [address] Performed By: #### 5 8410-2 ####[facility] LABCLIA [id number] [place] [address] WBC (Bld) [#/Vol] 13.80 10*3/uL High 3.70-11.00 [facility] Comment on above: Order Comment: Speci men Type: BLOOD SPECIMENOrdering Facility: [facility] Address: [address] [address] Performed By: #### 5 8410-2 ####[facility] LABCLIA [id number] [place] [address] CNNURSEon 01-22-2023 CNNURSE Normal [facility] CRP SerPl-mCncon 01-22-2023 CRP [Mass/Vol] mg/L Normal <0.9 [facility] Comment on above: Order Comment: Speci men Type: BLOOD SPECIMENOrdering Facility: [facility] Address: [address] [place] [address] Performed By: #### 1 988-5 ####[facility] LABCLIA [id number] [facility] [id number], [place] [address] [place] Comprehensive metabolic 2000 panelon 01-22-2023 Albumin [Mass/Vol] 4.1 g/dL Normal 3.9-4.9 [facility] Comment on above: Order Comment: Speci men Type: BLOOD SPECIMENOrdering Facility: [facility] Address: [address] [address] Performed By: #### 2 4323-8 ####[facility] LABCLIA [id number] [place] [address] ALP [Catalytic activity/Vol] 62 U/L Normal 34-123 [facility] Comment on above: Order Comment: Speci men Type: BLOOD SPECIMENOrdering Facility: [facility] Address: [address] [address] Performed By: #### 2 4323-8 ####[facility] LABCLIA [id number] [place] [address] ALT [Catalytic activity/Vol] 27 U/L Normal 7-38 [facility] Comment on above: Order Comment: Speci men Type: BLOOD SPECIMENOrdering Facility: [facility] Address: [address] [address] Performed By: #### 2 4323-8 ####[facility] LABCLIA [id number] [place] [address] Anion gap [Moles/Vol] 10 mmol/L Normal 9-18 [facility] Comment on above: Order Comment: Speci men Type: BLOOD SPECIMENOrdering Facility: [facility] Address: [address] [address] Performed By: #### 2 4323-8 ####[facility] LABCLIA [id number] [place] [address] AST [Catalytic activity/Vol] 12 U/L Low 13-35 [facility] Comment on above: Order Comment: Speci men Type: BLOOD SPECIMENOrdering Facility: [facility] Address: [address] [place] [address] Performed By: #### 2 4323-8 ####[facility] LABCLIA [id number] [place] [address] Bilirubin [Mass/Vol] 0.2 mg/dL Normal 0.2-1.3 [facility] Comment on above: Order Comment: Speci men Type: BLOOD SPECIMENOrdering Facility: [facility] Address: [address] [place] [address] Performed By: #### 2 4323-8 ####[facility] LABCLIA [id number] [place] [address] Calcium [Mass/Vol] 9.4 mg/dL Normal 8.5-10.2 [facility] Comment on above: Order Comment: Speci men Type: BLOOD SPECIMENOrdering Facility: [facility] Address: [address] [place] [address] Performed By: #### 2 4323-8 ####[facility] LABCLIA [id number] [place] [address] Chloride [Moles/Vol] 107 mmol/L High 97-105 [facility] Comment on above: Order Comment: Speci men Type: BLOOD SPECIMENOrdering Facility: [facility] Address: [address] [place] [address] Performed By: #### 2 4323-8 ####[facility] LABCLIA [id number] [place] [address] CO2 [Moles/Vol] 24 mmol/L Normal 22-30 [facility] Comment on above: Order Comment: Speci men Type: BLOOD SPECIMENOrdering Facility: [facility] Address: [address] [place] [address] Performed By: #### 2 4323-8 ####[facility] LABCLIA [id number] [place] [address] Creatinine [Mass/Vol] 0.71 mg/dL Normal 0.58-0.96 [facility] Comment on above: Order Comment: Speci men Type: BLOOD SPECIMENOrdering Facility: [facility] Address: [address] [place] [address] Performed By: #### 2 4323-8 ####[facility] LABCLIA [id number] [place] [address] Creatinine and Glomerular filtration rate.predicted panel (S/P/Bld) 109 mL/min/1.73m??? Normal >=60 [facility] Comment on above: Order Comment: Semaj cortés Type: BLOOD SPECIMENOrdering Facility: [facility] Address: [address] [place] [address] Result Comment: Erin mated Glomerular Filtration Rate [...] actual GFR. Performed By: #### 2 4323-8 ####[facility] LABCLIA [id number] [place] [address] Glucose [Mass/Vol] 60 mg/dL Low 74-99 [facility] Comment on above: Order Comment: Semaj cortés Type: BLOOD SPECIMENOrdering Facility: [facility] Address: [address] [place] [address] Result Comment: The [place] Diabetes Association (ADA) provides guidance for cutoff [...] Standards of Medical Care in Diabetes 2016, [place] [employer]. Diabetes Care. 2016.39(Suppl 1). Performed By: #### 2 4323-8 ####[facility] LABCLIA [id number] [place] [address] Potassium [Moles/Vol] 4.0 mmol/L Normal 3.7-5.1 [facility] Comment on above: Order Comment: Speci men Type: BLOOD SPECIMENOrdering Facility: [facility] Address: [address] [place] [address] Performed By: #### 2 4323-8 ####[facility] LABCLIA [id number] [place] [address] Protein [Mass/Vol] 6.7 g/dL Normal 6.3-8.0 [facility] Comment on above: Order Comment: Speci men Type: BLOOD SPECIMENOrdering Facility: [facility] Address: [address] [place] [address] Performed By: #### 2 4323-8 ####[facility] LABCLIA [id number] [place] [address] Sodium [Moles/Vol] 141 mmol/L Normal 136-144 [facility] Comment on above: Order Comment: Speci men Type: BLOOD SPECIMENOrdering Facility: [facility] Address: [address] [place] [address] Performed By: #### 2 4323-8 ####[facility] LABCLIA [id number] [place] [address] Urea nitrogen [Mass/Vol] 13 mg/dL Normal 7-21 [facility] Comment on above: Order Comment: Speci men Type: BLOOD SPECIMENOrdering Facility: [facility] Address: [address] [place] [address] Performed By: #### 2 4323-8 ####[facility] LABIA [id number] [place] [address] ESR Westergren method (Bld) [Velocity]on 01-22-2023 ESR (Bld) [Velocity] 20 mm/h Normal 0-20 [facility] Comment on above: Order Comment: Speci men Type: BLOOD SPECIMENOrdering Facility: [facility] Address: [address] [address] Performed By: #### 4 537-7 ####[facility] LABCLIA [id number] [facility] [id number] [address] [place] CNNURSEon 12-29-2022 CNNURSE Normal [facility] CNPNon 12-18-2022 CNPN Normal [facility] CNPNon 12-16-2022 CNPN Normal [facility] CBC W Auto Differential pane l (Bld)on 12-08-2022 Basophils (Bld) [#/Vol] 0.06 10*3/uL Normal <0.11 [facility] Comment on above: Order Comment: Speci men Type: BLOOD SPECIMENOrdering Facility: [facility] Address: [address] [place] [address] Performed By: #### 5 7021-8 ####[facility] LABCLIA [id number] [place] [address] Basophils/100 WBC (Bld) 0.4 % Normal [facility] Comment on above: Order Comment: Speci men Type: BLOOD SPECIMENOrdering Facility: [facility] Address: [address] [place] [address] Performed By: #### 5 7021-8 ####[facility] LABCLIA [id number] [place] [address] Differential cell count method Nom (Bld) Auto Normal [facility] Comment on above: Order Comment: Speci men Type: BLOOD SPECIMENOrdering Facility: [facility] Address: [address] [address] Performed By: #### 5 7021-8 ####[facility] LABCLIA [id number] [place] [address] Eosinophils (Bld) [#/Vol] 0.11 10*3/uL Normal <0.46 [facility] Comment on above: Order Comment: Speci men Type: BLOOD SPECIMENOrdering Facility: [facility] Address: [address] [address] Performed By: #### 5 7021-8 ####[facility] LABCLIA [id number] [place] [address] Eosinophils/100 WBC (Bld) 0.8 % Normal [facility] Comment on above: Order Comment: Speci men Type: BLOOD SPECIMENOrdering Facility: [facility] Address: [address] [place] [address] Performed By: #### 5 7021-8 ####[facility] LABCLIA [id number] [place] [address] Erythrocyte distribution width (RBC) [Ratio] 14.6 % Normal 11.5-15.0 [facility] Comment on above: Order Comment: Speci men Type: BLOOD SPECIMENOrdering Facility: [facility] Address: [address] [place] [address] Performed By: #### 5 7021-8 ####[facility] LABCLIA [id number] [place] [address] Hematocrit (Bld) [Volume fraction] 42.0 % Normal 36.0-46.0 [facility] Comment on above: Order Comment: Speci men Type: BLOOD SPECIMENOrdering Facility: [facility] Address: [address] [place] [address] Performed By: #### 5 7021-8 ####[facility] LABCLIA [id number] [place] [address] Hemoglobin (Bld) [Mass/Vol] 13.3 g/dL Normal 11.5-15.5 [facility] Comment on above: Order Comment: Speci men Type: BLOOD SPECIMENOrdering Facility: [facility] Address: [address] [place] [address] Performed By: #### 5 7021-8 ####[facility] LABCLIA [id number] [place] [address] Immature granulocytes (Bld) [#/Vol] 0.11 10*3/uL High <0.10 [facility] Comment on above: Order Comment: Speci men Type: BLOOD SPECIMENOrdering Facility: [facility] Address: [address] [place] [address] Performed By: #### 5 7021-8 ####[facility] LABCLIA [id number] [place] [address] Immature granulocytes/100 WBC (Bld) 0.8 % Normal [facility] Comment on above: Order Comment: Speci men Type: BLOOD SPECIMENOrdering Facility: [facility] Address: [address] [place] [address] Performed By: #### 5 7021-8 ####[facility] LABCLIA [id number] [place] [address] Lymphocytes (Bld) [#/Vol] 3.75 10*3/uL Normal 1.00-4.00 [facility] Comment on above: Order Comment: Speci men Type: BLOOD SPECIMENOrdering Facility: [facility] Address: [address] [place] [address] Performed By: #### 5 7021-8 ####[facility] LABCLIA [id number] [place] [address] Lymphocytes/100 WBC (Bld) 27.4 % Normal [facility] Comment on above: Order Comment: Speci men Type: BLOOD SPECIMENOrdering Facility: [facility] Address: [address] [address] Performed By: #### 5 7021-8 ####[facility] LABCLIA [id number] [place] [address] MCH (RBC) [Entitic mass] 29.8 pg Normal 26.0-34.0 [facility] Comment on above: Order Comment: Speci men Type: BLOOD SPECIMENOrdering Facility: [facility] Address: [address] [place] [address] Performed By: #### 5 7021-8 ####[facility] LABCLIA [id number] [place] [address] MCHC (RBC) [Mass/Vol] 31.7 g/dL Normal 30.5-36.0 [facility] Comment on above: Order Comment: Speci men Type: BLOOD SPECIMENOrdering Facility: [facility] Address: [address] [place] [address] Performed By: #### 5 7021-8 ####[facility] LABIA [id number] [place] [address] MCV (RBC) [Entitic vol] 94.0 fL Normal 80.0-100.0 [facility] Comment on above: Order Comment: Speci men Type: BLOOD SPECIMENOrdering Facility: [facility] Address: [address] [place] [address] Performed By: #### 5 7021-8 ####[facility] LABIA [id number] [place] [address] Monocytes (Bld) [#/Vol] 1.07 10*3/uL High <0.87 [facility] Comment on above: Order Comment: Speci men Type: BLOOD SPECIMENOrdering Facility: [facility] Address: [address] [place] [address] Performed By: #### 5 7021-8 ####[facility] LABCLIA [id number] [place] [address] Monocytes/100 WBC (Bld) 7.8 % Normal [facility] Comment on above: Order Comment: Speci men Type: BLOOD SPECIMENOrdering Facility: [facility] Address: [address] [place], [place] [address] Performed By: #### 5 7021-8 ####[facility] LABCLIA [id number] [place] [address] Neutrophils (Bld) [#/Vol] 8.57 10*3/uL High 1.45-7.50 [facility] Comment on above: Order Comment: Speci men Type: BLOOD SPECIMENOrdering Facility: [facility] Address: [address] [place] [address] Performed By: #### 5 7021-8 ####[facility] LABCLIA [id number] [place] [address] Neutrophils/100 WBC (Bld) 62.8 % Normal [facility] Comment on above: Order Comment: Speci men Type: BLOOD SPECIMENOrdering Facility: [facility] Address: [address] [place] [address] Performed By: #### 5 7021-8 ####[facility] LABIA [id number] [place] [address] Nucleated RBC (Bld) [#/Vol] 10*3/uL Normal <0.01 [facility] Comment on above: Order Comment: Speci men Type: BLOOD SPECIMENOrdering Facility: [facility] Address: [address] [address] Performed By: #### 5 7021-8 ####[facility] LABIA [id number] [place] [address] Nucleated RBC/100 WBC (Bld) [Ratio] 0.0 /100 WBC Normal [facility] Comment on above: Order Comment: Speci men Type: BLOOD SPECIMENOrdering Facility: [facility] Address: [address] [place], [place] [address] Performed By: #### 5 7021-8 ####[facility] LABIA [id number] [place] [address] Platelet mean volume (Bld) [Entitic vol] 9.6 fL Normal 9.0-12.7 [facility] Comment on above: Order Comment: Speci men Type: BLOOD SPECIMENOrdering Facility: [facility] Address: [address] [place] [address] Performed By: #### 5 7021-8 ####[facility] LABCLIA [id number] [place] [address] Platelets (Bld) [#/Vol] 301 10*3/uL Normal 150-400 [facility] Comment on above: Order Comment: Speci men Type: BLOOD SPECIMENOrdering Facility: [facility] Address: [address] [place] [address] Performed By: #### 5 7021-8 ####[facility] LABCLIA [id number] [place] [address] RBC (Bld) [#/Vol] 4.47 10*6/uL Normal 3.90-5.20 [facility] Comment on above: Order Comment: Speci men Type: BLOOD SPECIMENOrdering Facility: [facility] Address: [address] [place] [address] Performed By: #### 5 7021-8 ####[facility] LABIA [id number] [place] [address] WBC (Bld) [#/Vol] 13.67 10*3/uL High 3.70-11.00 [facility] Comment on above: Order Comment: Speci men Type: BLOOD SPECIMENOrdering Facility: [facility] Address: [address] [place] [address] Performed By: #### 5 7021-8 ####[facility] LABCLIA [id number] [place] [address] CNPNon 12-08-2022 CNPN Normal [facility] Comprehensive metabolic 2000 panelon 12-08-2022 Albumin [Mass/Vol] 4.3 g/dL Normal 3.9-4.9 [facility] Comment on above: Order Comment: Speci men Type: BLOOD SPECIMENOrdering Facility: [facility] Address: [address] [place] [address] Performed By: #### 2 4323-8 ####[facility] LABCLIA [id number] [place] [address] ALP [Catalytic activity/Vol] 63 U/L Normal 34-123 [facility] Comment on above: Order Comment: Speci men Type: BLOOD SPECIMENOrdering Facility: [facility] Address: [address] [address] Performed By: #### 2 4323-8 ####[facility] LABCLIA [id number] [place] [address] ALT [Catalytic activity/Vol] 19 U/L Normal 7-38 [facility] Comment on above: Order Comment: Speci men Type: BLOOD SPECIMENOrdering Facility: [facility] Address: [address] [address] Performed By: #### 2 4323-8 ####[facility] LABCLIA [id number] [place] [address] Anion gap [Moles/Vol] 5 mmol/L Low 9-18 [facility] Comment on above: Order Comment: Speci men Type: BLOOD SPECIMENOrdering Facility: [facility] Address: [address] [address] Performed By: #### 2 4323-8 ####[facility] LABCLIA [id number] [place] [address] AST [Catalytic activity/Vol] 10 U/L Low 13-35 [facility] Comment on above: Order Comment: Speci men Type: BLOOD SPECIMENOrdering Facility: [facility] Address: [address] [address] Performed By: #### 2 4323-8 ####[facility] LABCLIA [id number] [place] [address] Bilirubin [Mass/Vol] 0.2 mg/dL Normal 0.2-1.3 [facility] Comment on above: Order Comment: Speci men Type: BLOOD SPECIMENOrdering Facility: [facility] Address: [address] [address] Performed By: #### 2 4323-8 ####[facility] LABCLIA [id number] [place] [address] Calcium [Mass/Vol] 9.9 mg/dL Normal 8.5-10.2 [facility] Comment on above: Order Comment: Speci men Type: BLOOD SPECIMENOrdering Facility: [facility] Address: [address] [place] [address] Performed By: #### 2 4323-8 ####[facility] LABCLIA [id number] [place] [address] Chloride [Moles/Vol] 106 mmol/L High 97-105 [facility] Comment on above: Order Comment: Speci men Type: BLOOD SPECIMENOrdering Facility: [facility] Address: [address] [place] [address] Performed By: #### 2 4323-8 ####[facility] LABCLIA [id number] [place] [address] CO2 [Moles/Vol] 26 mmol/L Normal 22-30 [facility] Comment on above: Order Comment: Speci men Type: BLOOD SPECIMENOrdering Facility: [facility] Address: [address] [place] [address] Performed By: #### 2 4323-8 ####[facility] LABCLIA [id number] [place] [address] Creatinine [Mass/Vol] 0.80 mg/dL Normal 0.58-0.96 [facility] Comment on above: Order Comment: Speci men Type: BLOOD SPECIMENOrdering Facility: [facility] Address: [address] [place] [address] Performed By: #### 2 4323-8 ####[facility] LABCLIA [id number] [place] [address] ESTIMATED GLOMERULAR FILTRATION RATE 94 mL/min/1.73m??? Normal >=60 [facility] Comment on above: Order Comment: Speci men Type: BLOOD SPECIMENOrdering Facility: [facility] Address: [address] [id number] Result Comment: Erin mated Glomerular Filtration Rate [...] actual GFR. Performed By: #### 2 4323-8 ####[facility] LABCLIA [id number] [place] [address] Glucose [Mass/Vol] 91 mg/dL Normal 74-99 [facility] Comment on above: Order Comment: Semaj cortés Type: BLOOD SPECIMENOrdering Facility: [facility] Address: [address] [place] [address] Result Comment: The [place] Diabetes Association (ADA) provides guidance for cutoff [...] Standards of Medical Care in Diabetes 2016, [place] [employer]. Diabetes Care. 2016.39(Suppl 1). Performed By: #### 2 4323-8 ####[facility] LABCLIA [id number] [place] [address] Potassium [Moles/Vol] 3.9 mmol/L Normal 3.7-5.1 [facility] Comment on above: Order Comment: Semaj cortés Type: BLOOD SPECIMENOrdering Facility: [facility] Address: [address] Performed By: #### 2 4323-8 ####[facility] LABCLIA [id number] [place] [address] Protein [Mass/Vol] 7.1 g/dL Normal 6.3-8.0 [facility] Comment on above: Order Comment: Speci men Type: BLOOD SPECIMENOrdering Facility: [facility] Address: [address] [place] [address] Performed By: #### 2 4323-8 ####[facility] LABCLIA [id number] [place] [address] Sodium [Moles/Vol] 137 mmol/L Normal 136-144 [facility] Comment on above: Order Comment: Speci men Type: BLOOD SPECIMENOrdering Facility: [facility] Address: [address] [place] [address] Performed By: #### 2 4323-8 ####[facility] LABCLIA [id number] [place] [address] Urea nitrogen [Mass/Vol] 20 mg/dL Normal 7-21 [facility] Comment on above: Order Comment: Speci men Type: BLOOD SPECIMENOrdering Facility: [facility] Address: [address] [place] [address] Performed By: #### 2 4323-8 ####[facility] LABCLIA [id number] [place] [address] Ferritin SerPl-mCncon 2022 Ferritin [Mass/Vol] 26.6 ng/mL Normal 14.7-205.1 [facility] Comment on above: Order Comment: Speci men Type: BLOOD SPECIMENOrdering Facility: [facility] Address: [address] [place] [address] Performed By: #### 5 0190-8, 2132-9, 2276-4, 2284-8 ####[facility] LABCLIA [id number] [place] [address] [place] Folate SerPl-mCncon 07-18-20 23 Folate [Mass/Vol] 2.6 ng/mL Low >4.7 [facility] Comment on above: Order Comment: Speci men Type: BLOOD SPECIMENOrdering Facility: [facility] Address: [address] [place] [address] Performed By: #### 5 0190-8, 9, 4, 2283-12 ####[facility] LABCLIA [id number] [place] [address] [place] Iron and Iron binding capaci ty panelon 12-08-2022 Iron [Mass/Vol] 48 ug/dL Normal 41-186 [facility] Comment on above: Order Comment: Speci men Type: BLOOD SPECIMENOrdering Facility: [facility] Address: [address] [place] [address] Performed By: #### 5 0190-8, 9, 2275-08, 2283-12 ####[facility] LABCLIA [id number] [place] [address] [place] Iron binding capacity [Mass/Vol] 382 ug/dL Normal 232-386 [facility] Comment on above: Order Comment: Speci men Type: BLOOD SPECIMENOrdering Facility: [facility] Address: [address] [place] [address] Performed By: #### 5 0190-8, 9, 2275-08, 2283-12 ####[facility] LABCLIA [id number] [place] [address] [place] Iron/TIBC [Molar ratio] 12.6 % Low 15.0-57.0 [facility] Comment on above: Order Comment: Speci men Type: BLOOD SPECIMENOrdering Facility: [facility] Address: [address] [place] [address] Performed By: #### 5 0190-8, 9, 2275-08, 2283-12 ####[facility] LABCLIA [id number] [place] [address] [place] Vit B12 SerPl-mCncon 18-2 023 Cobalamin (Vitamin B12) [Mass/Vol] 336 pg/mL Normal 232-1245 [facility] Comment on above: Order Comment: Semaj cortés Type: BLOOD SPECIMENOrdering Facility: [facility] Address: [address] [address] Performed By: #### 5 0190-8, 2132-9, 2276-4, 2284-8 ####[facility] LABCLIA [id number] [place] [address] [place] CNNURSEon 11-19-2022 CNNURSE Normal [facility] CNPNon 10-31-2022 CNPN Normal [facility] CNNURSEon 10-22-2022 CNNURSE Normal [facility] CNOVSPon 10-22-2022 CNOVSP Normal [facility] TPMT PHENOTYPE/ENZYME ACTIVI TYon 10-22-2022 TPMT ACTIVITY 33.5 U/mL Normal 24.0-44.0 [facility] Comment on above: Order Comment: Semaj cortés Type: BLOOD SPECIMENOrdering Facility: [facility] Address: [address] [place] [address] Result Comment: INTE RPRETIVE INFORMATION: Thiopurine Methyltransferase, [...] was developed and its performance characteristicsdetermined by [facility]. It has not been cleared orapproved by the [place] Food and Drug Administration. This test wasperformed in a CLIA certified laboratory and is intended forclinical purposes.Performed By: [facility] [id number] [place], [place] [address]Xncbanxpun Director: Ole Love MD, PhD Performed By: #### T PMT ####[facility] [id number] [place] [address] CNPNon 10-16-2022 CNPN Normal [facility] 25(OH)D3 SerPl-mCncon 2022 25-hydroxyvitamin D3 [Mass/Vol] 28.3 ng/mL Low 31.0-80.0 [facility] Comment on above: Order Comment: Speci men Type: BLOOD SPECIMENOrdering Facility: [facility] Address: [address] [place] [address] Result Comment: Clas sification of 25 [place] Vitamin D status:Deficiency/Insufficiency: < or = 30 ng/ml.Sufficiency/Optimal Levels: 31-80 ng/mLToxicity: > 100 ng/mL.Test performed by chemiluminescent immunoassay. Performed By: #### 1 989-3 ####[facility] LABCLIA [id number] [place] [address] [place] CBC W Auto Differential pane l (Bld)on 10-15-2022 Basophils (Bld) [#/Vol] 0.07 10*3/uL Normal <0.11 [facility] Comment on above: Order Comment: Speci men Type: BLOOD SPECIMENOrdering Facility: [facility] Address: [address] [place] [address] Performed By: #### 5 7021-8 ####[facility] LABCLIA [id number] [place] [address] Basophils/100 WBC (Bld) 0.6 % Normal [facility] Comment on above: Order Comment: Speci men Type: BLOOD SPECIMENOrdering Facility: [facility] Address: [address] [place] [address] Performed By: #### 5 7021-8 ####[facility] LABCLIA [id number] [place] [address] Differential cell count method Nom (Bld) Auto Normal [facility] Comment on above: Order Comment: Speci men Type: BLOOD SPECIMENOrdering Facility: [facility] Address: [address] [place] [address] Performed By: #### 5 7021-8 ####[facility] LABCLIA [id number] [place] [address] Eosinophils (Bld) [#/Vol] 0.16 10*3/uL Normal <0.46 [facility] Comment on above: Order Comment: Speci men Type: BLOOD SPECIMENOrdering Facility: [facility] Address: [address] [place] [address] Performed By: #### 5 7021-8 ####[facility] LABCLIA [id number] [place] [address] Eosinophils/100 WBC (Bld) 1.3 % Normal [facility] Comment on above: Order Comment: Speci men Type: BLOOD SPECIMENOrdering Facility: [facility] Address: [address] [place] [address] Performed By: #### 5 7021-8 ####[facility] LABCLIA [id number] [place] [address] Erythrocyte distribution width (RBC) [Ratio] 14.6 % Normal 11.5-15.0 [facility] Comment on above: Order Comment: Speci men Type: BLOOD SPECIMENOrdering Facility: [facility] Address: [address] [place] [address] Performed By: #### 5 7021-8 ####[facility] LABCLIA [id number] [place] [address] Hematocrit (Bld) [Volume fraction] 40.8 % Normal 36.0-46.0 [facility] Comment on above: Order Comment: Speci men Type: BLOOD SPECIMENOrdering Facility: [facility] Address: [address] [place] [address] Performed By: #### 5 7021-8 ####[facility] LABCLIA [id number] [place] [address] Hemoglobin (Bld) [Mass/Vol] 13.1 g/dL Normal 11.5-15.5 [facility] Comment on above: Order Comment: Speci men Type: BLOOD SPECIMENOrdering Facility: [facility] Address: [address] [place] [address] Performed By: #### 5 7021-8 ####[facility] LABCLIA [id number] [place] [address] Immature granulocytes (Bld) [#/Vol] 0.07 10*3/uL Normal <0.10 [facility] Comment on above: Order Comment: Speci men Type: BLOOD SPECIMENOrdering Facility: [facility] Address: [address] [place] [address] Performed By: #### 5 7021-8 ####[facility] LABIA [id number] [place] [address] Immature granulocytes/100 WBC (Bld) 0.6 % Normal [facility] Comment on above: Order Comment: Speci men Type: BLOOD SPECIMENOrdering Facility: [facility] Address: [address] [place] [address] Performed By: #### 5 7021-8 ####[facility] LABIA [id number] [place] [address] Lymphocytes (Bld) [#/Vol] 3.62 10*3/uL Normal 1.00-4.00 [facility] Comment on above: Order Comment: Speci men Type: BLOOD SPECIMENOrdering Facility: [facility] Address: [address] [place] [address] Performed By: #### 5 7021-8 ####[facility] LABCLIA [id number] [place] [address] Lymphocytes/100 WBC (Bld) 30.3 % Normal [facility] Comment on above: Order Comment: Speci men Type: BLOOD SPECIMENOrdering Facility: [facility] Address: [address] [place] [address] Performed By: #### 5 7021-8 ####[facility] LABCLIA [id number] [place] [address] MCH (RBC) [Entitic mass] 29.2 pg Normal 26.0-34.0 [facility] Comment on above: Order Comment: Speci men Type: BLOOD SPECIMENOrdering Facility: [facility] Address: [address] [place] [address] Performed By: #### 5 7021-8 ####[facility] LABIA [id number] [place] [address] MCHC (RBC) [Mass/Vol] 32.1 g/dL Normal 30.5-36.0 [facility] Comment on above: Order Comment: Speci men Type: BLOOD SPECIMENOrdering Facility: [facility] Address: [address] [place] [address] Performed By: #### 5 7021-8 ####[facility] LABCLIA [id number] [place] [address] MCV (RBC) [Entitic vol] 90.9 fL Normal 80.0-100.0 [facility] Comment on above: Order Comment: Speci men Type: BLOOD SPECIMENOrdering Facility: [facility] Address: [address] [place] [address] Performed By: #### 5 7021-8 ####[facility] LABIA [id number] [place] [address] Monocytes (Bld) [#/Vol] 0.66 10*3/uL Normal <0.87 [facility] Comment on above: Order Comment: Speci men Type: BLOOD SPECIMENOrdering Facility: [facility] Address: [address] [address] Performed By: #### 5 7021-8 ####[facility] LABCLIA [id number] [place] [address] Monocytes/100 WBC (Bld) 5.5 % Normal [facility] Comment on above: Order Comment: Speci men Type: BLOOD SPECIMENOrdering Facility: [facility] Address: [address] [address] Performed By: #### 5 7021-8 ####[facility] LABCLIA [id number] [place] [address] Neutrophils (Bld) [#/Vol] 7.35 10*3/uL Normal 1.45-7.50 [facility] Comment on above: Order Comment: Speci men Type: BLOOD SPECIMENOrdering Facility: [facility] Address: [address] [address] Performed By: #### 5 7021-8 ####[facility] LABCLIA [id number] [place] [address] Neutrophils/100 WBC (Bld) 61.7 % Normal [facility] Comment on above: Order Comment: Speci men Type: BLOOD SPECIMENOrdering Facility: [facility] Address: [address] Performed By: #### 5 7021-8 ####[facility] LABCLIA [id number] [place] [address] Nucleated RBC (Bld) [#/Vol] 10*3/uL Normal <0.01 [facility] Comment on above: Order Comment: Speci men Type: BLOOD SPECIMENOrdering Facility: [facility] Address: [address] Performed By: #### 5 7021-8 ####[facility] LABCLIA [id number] [place] [address] Nucleated RBC/100 WBC (Bld) [Ratio] 0.0 /100 WBC Normal [facility] Comment on above: Order Comment: Speci men Type: BLOOD SPECIMENOrdering Facility: [facility] Address: [address] [place] [address] Performed By: #### 5 7021-8 ####[facility] LABCLIA [id number] [place] [address] Platelet mean volume (Bld) [Entitic vol] 9.7 fL Normal 9.0-12.7 [facility] Comment on above: Order Comment: Speci men Type: BLOOD SPECIMENOrdering Facility: [facility] Address: [address] [place] [address] Performed By: #### 5 7021-8 ####[facility] LABIA [id number] [place] [address] Platelets (Bld) [#/Vol] 295 10*3/uL Normal 150-400 [facility] Comment on above: Order Comment: Speci men Type: BLOOD SPECIMENOrdering Facility: [facility] Address: [address] [place] [address] Performed By: #### 5 7021-8 ####[facility] LABIA [id number] [place] [address] RBC (Bld) [#/Vol] 4.49 10*6/uL Normal 3.90-5.20 [facility] Comment on above: Order Comment: Speci men Type: BLOOD SPECIMENOrdering Facility: [facility] Address: [address] [place] [address] Performed By: #### 5 7021-8 ####[facility] LABCLIA [id number] [place] [address] WBC (Bld) [#/Vol] 11.93 10*3/uL High 3.70-11.00 [facility] Comment on above: Order Comment: Speci men Type: BLOOD SPECIMENOrdering Facility: [facility] Address: [address] [address] Performed By: #### 5 7021-8 ####[facility] LABCLIA [id number] [place] [address] CRP SerPl-ncon 10-15-2022 CRP [Mass/Vol] 0.3 mg/dL Normal <0.9 [facility] Comment on above: Order Comment: Speci men Type: BLOOD SPECIMENOrdering Facility: [facility] Address: [address] [address] Performed By: #### 1 988-5, 2885-2, 2132-9 ####[facility] LABCLIA [id number] [address] [facility] Comprehensive metabolic 2000 panelon 10-15-2022 Albumin [Mass/Vol] 4.0 g/dL Normal 3.9-4.9 [facility] Comment on above: Order Comment: Speci men Type: BLOOD SPECIMENOrdering Facility: [facility] Address: [address] [place] [address] Performed By: #### 2 4323-8, 2532-0 ####[facility] LABCLIA [id number] [place] [address] ALP [Catalytic activity/Vol] 59 U/L Normal 34-123 [facility] Comment on above: Order Comment: Speci men Type: BLOOD SPECIMENOrdering Facility: [facility] Address: [address] Performed By: #### 2 4323-8, 2532-0 ####[facility] LABCLIA [id number] [place] [address] ALT [Catalytic activity/Vol] 19 U/L Normal 7-38 [facility] Comment on above: Order Comment: Speci men Type: BLOOD SPECIMENOrdering Facility: [facility] Address: [address] [address] Performed By: #### 2 432-8, 2531-0 ####[facility] LABCLIA [id number] [place] [address] Anion gap [Moles/Vol] 12 mmol/L Normal 9-18 [facility] Comment on above: Order Comment: Speci men Type: BLOOD SPECIMENOrdering Facility: [facility] Address: [address] [address] Performed By: #### 2 4328, 2531-0 ####[facility]CLIA [id number] [place] [address] AST [Catalytic activity/Vol] 10 U/L Low 13-35 [facility] Comment on above: Order Comment: Speci men Type: BLOOD SPECIMENOrdering Facility: [facility] Address: [address] [address] Performed By: #### 2 4328, 2531-0 ####[facility] LABIA [id number] [place] [address] Bilirubin [Mass/Vol] 0.2 mg/dL Normal 0.2-1.3 [facility] Comment on above: Order Comment: Speci men Type: BLOOD SPECIMENOrdering Facility: [facility] Address: [address] [address] Performed By: #### 2 4328, 2531-0 ####[facility] LABCLIA [id number] [place] [address] Calcium [Mass/Vol] 9.6 mg/dL Normal 8.5-10.2 [facility] Comment on above: Order Comment: Speci men Type: BLOOD SPECIMENOrdering Facility: [facility] Address: [address] [address] Performed By: #### 2 43238, 2531-0 ####[facility] LABCLIA [id number] [place] [address] Chloride [Moles/Vol] 104 mmol/L Normal 97-105 [facility] Comment on above: Order Comment: Speci men Type: BLOOD SPECIMENOrdering Facility: [facility] Address: [address] [place] [address] Performed By: #### 2 4323-8, 2532-0 ####[facility] LABIA [id number] [place] [address] CO2 [Moles/Vol] 21 mmol/L Low 22-30 [facility] Comment on above: Order Comment: Speci men Type: BLOOD SPECIMENOrdering Facility: [facility] Address: [address] [place] [address] Performed By: #### 2 4323-8, 2532-0 ####[facility] LABIA [id number] [place] [address] Creatinine [Mass/Vol] 0.72 mg/dL Normal 0.58-0.96 [facility] Comment on above: Order Comment: Speci men Type: BLOOD SPECIMENOrdering Facility: [facility] Address: [address] [place] [address] Performed By: #### 2 4323-8, 253-0 ####[facility] LABIA [id number] [place] [address] ESTIMATED GLOMERULAR FILTRATION RATE 107 mL/min/1.73m??? Normal >=60 [facility] Comment on above: Order Comment: Speci men Type: BLOOD SPECIMENOrdering Facility: [facility] Address: [address] [place] [address] Result Comment: Erin mated Glomerular Filtration Rate [...] actual GFR. Performed By: #### 2 4323-8, 0 ####[facility] LABCLIA [id number] [place] [address] Glucose [Mass/Vol] 157 mg/dL High 74-99 [facility] Comment on above: Order Comment: Speci men Type: BLOOD SPECIMENOrdering Facility: [facility] Address: [address] [place] [address] Result Comment: The [place] Diabetes Association (ADA) provides guidance for cutoff [...] Standards of Medical Care in Diabetes 2016, [place] [employer] Association. Diabetes Care. 2016.39(Suppl 1). Performed By: #### 2 4323-8, ####[facility] LABCLIA [id number] [place] [address] Potassium [Moles/Vol] 3.8 mmol/L Normal 3.7-5.1 [facility] Comment on above: Order Comment: Speci men Type: BLOOD SPECIMENOrdering Facility: [facility] Address: [address] [id number] Performed By: #### 2 4328, 0 ####[facility] LABIA [id number] [place] [address] Protein [Mass/Vol] 6.8 g/dL Normal 6.3-8.0 [facility] Comment on above: Order Comment: Speci men Type: BLOOD SPECIMENOrdering Facility: [facility] Address: [address] [place], [place] [id number] Performed By: #### 2 4328, 2532-0 ####[facility] LABCLIA [id number] [place] [address] Sodium [Moles/Vol] 137 mmol/L Normal 136-144 [facility] Comment on above: Order Comment: Speci men Type: BLOOD SPECIMENOrdering Facility: [facility] Address: [address] [place] [address] Performed By: #### 2 4323-8, 2531-0 ####[facility] LABCLIA [id number] [place] [address] Urea nitrogen [Mass/Vol] 16 mg/dL Normal 7-21 [facility] Comment on above: Order Comment: Speci men Type: BLOOD SPECIMENOrdering Facility: [facility] Address: [address] [place] [address] Performed By: #### 2 4323-8, 2531-0 ####[facility] LABCLIA [id number] [place] [address] ESR Westergren method (Bld) [Velocity]on 10-15-2022 ESR (Bld) [Velocity] 27 mm/h High 0-20 [facility] Comment on above: Order Comment: Speci men Type: BLOOD SPECIMENOrdering Facility: [facility] Address: [address] [place] [address] Performed By: #### 4 537-7 ####[facility] LABCLIA [id number] [place] [address] [place] IMMUNOFIXATION SCREEN, SERUM on 10-15-2022 MPA RESULT No M protein is identified. Normal No M protein is identified. [facility] Comment on above: Order Comment: Speci men Type: BLOOD SPECIMENOrdering Facility: [facility] Address: [address] [place] [address] Performed By: #### I [facility] ####[facility] LABCLIA [id number] [id number] [place] STAFF REVIEW (MPA) Reviewed by Chapito holt MD, Ph.D ([id number]) Normal [facility] Comment on above: Order Comment: Speci men Type: BLOOD SPECIMENOrdering Facility: [facility] Address: [address] [place] [address] Performed By: #### I FESC ####[facility] LABCLIA [id number] [place] [address] [place] IMMUNOGLOBULINS GAMon 2022 IgA [Mass/Vol] 184 mg/dL Normal 70-400 [facility] Comment on above: Order Comment: Speci men Type: BLOOD SPECIMENOrdering Facility: [facility] Address: [address] [place] [address] Performed By: #### S ERIMM ####[facility] LABCLIA [id number] [address] [place] IgG [Mass/Vol] 540 mg/dL Low 700-1600 [facility] Comment on above: Order Comment: Speci men Type: BLOOD SPECIMENOrdering Facility: [facility] Address: [address] [place] [address] Performed By: #### S ERIMM ####[facility] LABCLIA [id number] [address] [place] IgM [Mass/Vol] 504 mg/dL High 40-230 [facility] Comment on above: Order Comment: Speci men Type: BLOOD SPECIMENOrdering Facility: [facility] Address: [address] [place] [address] Performed By: #### S ERIMM ####[facility] LABCLIA [id number] [place] [address] [place] KAPPA/FARMER,FREE,SERon 2022 Immunoglobulin light chains.kappa.free (S) [Mass/Vol] 14.2 mg/L Normal 3.3-19.4 [facility] Comment on above: Order Comment: Speci men Type: BLOOD SPECIMENOrdering Facility: [facility] Address: [address] [place] [address] Result Comment: Rare ly, increased serum free light chains levels may not be detected or accurately quantified due to prozone phenomenon or in high viscosity samples using this immunoturbidimetric assay. Correlation with other laboratory results and clinical findings is recommended.The [place] Free Light Chain was performed using the Binding Site Optilite immunoturbidimetric method. Result obtained with different assay methods or kits cannot be used interchangeably. Performed By: #### K LFRS ####[facility] LABCLIA [id number] [place] [address] [place] Immunoglobulin light chains.kappa/Immunog lobulin light chains.lambda (S) [Mass ratio] 1.34 Normal 0.26-1.65 [facility] Comment on above: Order Comment: Speci men Type: BLOOD SPECIMENOrdering Facility: [facility] Address: [address] [place] [address] Performed By: #### K LFRS ####[facility] LABCLIA [id number] [place] [address] [place] Immunoglobulin light chains.lambda.free [Mass/Vol] 10.6 mg/L Normal 5.7-26.3 [facility] Comment on above: Order Comment: Speci men Type: BLOOD SPECIMENOrdering Facility: [facility] Address: [address] [place] [address] Result Comment: Rare ly, increased serum free [...] used interchangeably. Performed By: #### K LFRS ####[facility] LABCLIA [id number] [place] [address] [place] LDH SerPl-cCncon 10-15-2022 LDH [Catalytic activity/Vol] 155 U/L Normal 135-214 [facility] Comment on above: Order Comment: Speci men Type: BLOOD SPECIMENOrdering Facility: [facility] Address: [address] [place] [address] Performed By: #### 2 4323-8, 2532-0 ####[facility] LABCLIA [id number] [place] [address] PROTEIN ELECTROPHORESIS SERU M WITH DANA (P)on 10-15-2022 Albumin [Mass/Vol] 3.92 g/dL Normal 3.43-5.41 [facility] Comment on above: Order Comment: Speci men Type: BLOOD SPECIMENOrdering Facility: [facility] Address: [address] [place] [address] Performed By: #### L [id number] ####[facility] LABCLIA [id number] [place] [address] [place] Alpha 1 globulin Elph [Mass/Vol] 0.34 g/dL Normal 0.18-0.43 [facility] Comment on above: Order Comment: Speci men Type: BLOOD SPECIMENOrdering Facility: [facility] Address: [address] [place] [address] Performed By: #### L [id number] ####[facility] LABCLIA [id number] [place] [address] [place] Alpha 2 globulin Elph [Mass/Vol] 0.84 g/dL Normal 0.42-0.98 [facility] Comment on above: Order Comment: Speci men Type: BLOOD SPECIMENOrdering Facility: [facility] Address: [address] [place] [address] Performed By: #### L [id number] ####[facility] LABCLIA [id number] [place] [address] [place] Beta globulin Elph [Mass/Vol] 0.92 g/dL Normal 0.61-1.17 [facility] Comment on above: Order Comment: Speci men Type: BLOOD SPECIMENOrdering Facility: [facility] Address: [address] [place] [address] Performed By: #### L [id number] ####[facility] LABIA [id number] [address] [place] COMMENT (SERUM PROT ELECTRO) Monoclonal Protein analysis (immunofixation) is not indicated. Normal [facility] Comment on above: Order Comment: Speci men Type: BLOOD SPECIMENOrdering Facility: [facility] Address: [address] [place] [address] Performed By: #### L [id number] ####[facility] LABIA [id number] [address] [place] Gamma globulin Elph [Mass/Vol] 0.68 g/dL Normal 0.53-1.51 [facility] Comment on above: Order Comment: Speci men Type: BLOOD SPECIMENOrdering Facility: [facility] Address: [address] [place] [address] Performed By: #### L [id number] ####[facility] [id number] [address] [place] M-PROTEIN LOCATION Normal [facility] Comment on above: Order Comment: Speci men Type: BLOOD SPECIMENOrdering Facility: [facility] Address: [address] [place] [address] Result Comment: Not Applicable. Performed By: #### L [id number] ####[facility] LABIA [id number] [place] [address] [place] Protein Fractions [Interp] No definitive M protein is identified on protein electrophoresis. Normal No definitive M protein is identified on protein electrophor esis. [facility] Comment on above: Order Comment: Speci men Type: BLOOD SPECIMENOrdering Facility: [facility] Address: [address] [place], [place] [id number] Performed By: #### L [id number] ####[facility] LABCLIA [id number] [address] [facility] Protein.monoclonal Elph [Mass/Vol] 0.00 g/dL Normal <=0.00 [facility] Comment on above: Order Comment: Speci men Type: BLOOD SPECIMENOrdering Facility: [facility] Address: [address] [place], [place] [id number] Performed By: #### L [id number] ####[facility] LABIA [id number] [address] SPE STAFF REVIEW Reviewed by Chapito holt MD, Ph.D ([id number]) Normal [facility] Comment on above: Order Comment: Speci men Type: BLOOD SPECIMENOrdering Facility: [facility] Address: [address] [place], [place] [id number] Performed By: #### L [id number] ####[facility] LABIA [id number] [place] [address] [place] Prot SerPl-mCncon 10-15-2022 Protein [Mass/Vol] 6.7 g/dL Normal 6.3-8.0 [facility] Comment on above: Order Comment: Speci men Type: BLOOD SPECIMENOrdering Facility: [facility] Address: [address] [place], [place] [address] Performed By: #### 1 988-5, 2885-2, 2132-9 ####[facility] LABIA [id number] [address] [place] Vit B12 SerPl-mCncon 023 Cobalamin (Vitamin B12) [Mass/Vol] 368 pg/mL Normal 232-1245 [facility] Comment on above: Order Comment: Speci men Type: BLOOD SPECIMENOrdering Facility: [facility] Address: [address] [place], [place] [address] Performed By: #### 1 988-5, 2885-2, 2132-9 ####[facility] LABCLIA [id number] [place] [address] [place] CBC AUTO DIFFon 09-24-2022 BASO # 0.1 103/ul Normal 0.0-0.1 [facility] Comment on above: Performed By: #### U AMIC #### [facility] [address] [place] [address] Dr. Manda York Basophils/100 WBC (Bld) 0.6 % Normal 0.2-2.0 [facility] Comment on above: Performed By: #### U AMIC #### [facility] [address] [place] [address] Dr. Manda York EO # 0.1 103/ul Normal 0.0-0.7 [facility] Comment on above: Performed By: #### U AMIC #### [facility] [address] [place] [address] Dr. Manda York Eosinophils/100 WBC (Bld) 0.6 % Critically low 0.9-7.0 [facility] Comment on above: Performed By: #### U AMIC #### [facility] [address] [place] [address] Dr. Manda York Erythrocyte distribution width (RBC) [Ratio] 14.6 % Normal 11.0-15.0 [facility] Comment on above: Performed By: #### U AMIC #### [facility] [address] [place] [address] Dr. Manda York Hematocrit (Bld) [Volume fraction] 43.4 % Normal 36.0-48.0 [facility] Comment on above: Performed By: #### U AMIC #### [facility] [address] [place] [address] Dr. Manda York Hemoglobin (Bld) [Mass/Vol] 13.7 g/dL Normal 12.0-16.0 [facility] Comment on above: Performed By: #### U AMIC #### [facility] [address] [place], [place] [id number] Dr. Manda York IG # 0.12 10e3/ul Critically high 0.00-0.03 [facility] Comment on above: Performed By: #### U AMIC #### [facility] [address] [place] [address] Dr. Manda York IG % 0.8 % Critically high 0.0-0.5 [facility] Comment on above: Performed By: #### U AMIC #### [facility] [address] [place] [address] Dr. Manda York LYMPH # 2.6 103/ul Normal 1.2-3.8 [facility] Comment on above: Performed By: #### U AMIC #### [facility] [address] [place] [address] Dr. Manda York Lymphocytes/100 WBC (Bld) 18.3 % Critically low 20.5-60.0 [facility] Comment on above: Performed By: #### U AMIC #### [facility] [address] [place] [address] Dr. Manda York MANUAL DIFF REQ NO Normal [facility] Comment on above: Performed By: #### U AMIC #### [facility] [address] [place] [address] Dr. Manda York MCH (RBC) [Entitic mass] 29.0 pg Normal 26.7-34.0 [facility] Comment on above: Performed By: #### U AMIC #### [facility] [address] [place] [address] Dr. Manda York MCHC (RBC) [Mass/Vol] 31.6 g/dL Normal 29.9-35.2 [facility] Comment on above: Performed By: #### U AMIC #### [facility] [address] [place] [address] Dr. Manda York MCV (RBC) [Entitic vol] 91.8 fL Normal 81.0-99.0 [facility] Comment on above: Performed By: #### U AMIC #### [facility] [address] [place] [address] Dr. Manda York MONO # 0.7 103/ul Normal 0.3-0.8 [facility] Comment on above: Performed By: #### U AMIC #### [facility] [address] [place] [address] Dr. Manda York Monocytes/100 WBC (Bld) 5.1 % Normal 1.7-12.0 [facility] Comment on above: Performed By: #### U AMIC #### [facility] [address] [place] [address] Dr. Manda York NEUT # 10.6 103/ul Critically high 1.4-6.5 [facility] Comment on above: Performed By: #### U AMIC #### [facility] [address] [place] [address] Dr. Manda York Neutrophils/100 WBC (Bld) 74.6 % Normal 43.0-75.0 [facility] Comment on above: Performed By: #### U AMIC #### [facility] [address] [place] [address] Dr. Manda York Platelet mean volume (Bld) [Entitic vol] 9.4 fL Critically low 9.5-13.5 [facility] Comment on above: Performed By: #### U AMIC #### [facility] [address] [place] [address] Dr. Manda York PLT 307 103/ul Normal 150-450 [facility] Comment on above: Performed By: #### U AMIC #### [facility] [address] [place] [address] Dr. Manda York RBC 4.73 106/ul Normal 4.20-5.40 [facility] Comment on above: Performed By: #### U AMIC #### [facility] [address] [place] [address] Dr. Manda York WBC 14.2 103/ul Critically high 4.0-11.0 [facility] Comment on above: Performed By: #### U AMIC #### [facility] [address] [place] [address] Dr. Manda York FREE T4on 09-24-2022 Free T4 [Mass/Vol] 1.31 ng/dL Normal 0.76-1.46 [facility] Comment on above: Performed By: #### F T4 #### [facility] [address] [place] [address] Dr. Manda York GLYCOHEMOGLOBIN A1Con 2022 ADA RECOMMENDATION SEE BELOW Normal [facility] Comment on above: Result Comment: ADA RECOMMENDED LIMIT 4.0 - 6.0 ADA THERAPEUTIC TARGET < 7.0 ACTION SUGGESTED > 7.0 Performed By: #### A 1C #### [facility] [address] [place] [address] Dr. Manda York Glucose [Mass/Vol] 120 mg/dL Normal [facility] Comment on above: Performed By: #### A 1C #### [facility] [address] [place] [address] Dr. Manda York HbA1c (Bld) [Mass fraction] 5.8 % Normal 4.5-6.2 [facility] Comment on above: Performed By: #### A 1C #### [facility] [address] [place] [address] Dr. Manda York PREG QUANT HCGon 09-24-2022 HCG QUANT <1 Normal [facility] Comment on above: Performed By: #### F T4 #### [facility] [address] [place] [address] Dr. Manda York HCG RANGE SEE BELOW Normal [facility] Comment on above: Result Comment: 5-50 0.2-1 WEEK 50-500 1-2 WEEKS 100-5,000 2-3 WEEKS 500-10,000 3-4 WEEKS 1,000-50,000 4-5 WEEKS 10,000-100,000 5-6 WEEKS 15,000-200,000 6-8 WEEKS 10,000-100,000 2-3 MONTHS Performed By: #### F T4 #### [facility] [address] [place] [address] Dr. Manda York PROTIMEon 09-24-2022 INR Coag (PPP) [Relative time] {INR} Normal [facility] Comment on above: Performed By: #### F T4 #### [facility] [address] [place] [address] Dr. Manda York INR GUIDELINES SEE BELOW Normal [facility] Comment on above: Result Comment: SHERRY RED INR: 2.0 - 3.0 CONDITIONS NOT LISTED BELOW 2.5 - 3.5 FOR PROSTHETIC HEART VALVE REPLACEMENT 2.5 - 3.5 RECURRENT THROMBOSIS Performed By: #### F T4 #### [facility] [address] [place] [address] Dr. Manda York PT Coag (PPP) [Time] 9.6 s Normal 9.0-11.6 [facility] Comment on above: Performed By: #### F T4 #### [facility] [address] [place] [address] Dr. Manda York PTTon 09-24-2022 aPTT Coag (Bld) [Time] 28.2 s Normal 22.3-36.2 [facility] Comment on above: Performed By: #### F T4 #### [facility] [address] [place] [address] Dr. Manda York TSHon 09-24-2022 TSH 0.300 uIU/mL Critically low 0.358-3.740 [facility] Comment on above: Performed By: #### F T4 #### [facility] [address] [place] [address] Dr. Manda York US PELVIS TRANSVAGon 023 [...] by: AURORA SHAIKH Date: 2022-09-24 17:50 Normal [facility] PAP ACOG PANEL 2: 30 to 65on 09-18-2022 . . Normal [facility] Comment on above: Result Comment: Perf ormed at: WB Performed By: #### F T4 #### [facility] [address] [address] [address] Manda York Age Gdln ACOG Testing 30-65 Normal [facility] Comment on above: Performed By: #### F T4 #### [facility] [address] [address] [address] Manda York DIAGNOSIS: Comment Normal [facility] Comment on above: Result Comment: NEGA TIVE FOR INTRAEPITHELIAL LESION OR MALIGNANCY. Performed at: WB Performed By: #### F T4 #### [facility] [address] [address] [address] Manda York HPV Aptima Negative Normal Negative [facility] Comment on above: Result Comment: This nucleic acid amplification test detects fourteen high-risk HPV types (16,18,31,33,35,39,45,51,52,56,58,59,66,68) without differentiation. Performed at: =G Performed By: #### F T4 #### [facility] [address] [place] [address] Dr. Manda York HPV Genotype Reflex Comment Normal [facility] Comment on above: Result Comment: Crit eria not met, HPV Genotype not performed. Performed at: WB Performed By: #### F T4 #### [facility] [address] [address] [address] Manda York Methodology: Comment Normal [facility] Comment on above: Result Comment: This liquid based ThinPrep(R) pap test was screened with the use of an image guided system. Performed at: WB Performed By: #### F T4 #### [facility] [address] [place] [address] Dr. Manda York Note: Comment Normal [facility] Comment on above: Result Comment: The [...] WB Performed By: #### F T4 #### [facility] [address] [place], [place] [address] Dr. Manda York Performed by: Comment Normal [facility] Comment on above: Result Comment: Lorena Peters, Hr Clerk (ASCP) Performed at: WB Performed By: #### F T4 #### [facility] [address] [place], [place] [address] Dr. Manda York Specimen adequacy: Comment Normal [facility] Comment on above: Result Comment: Sati sfactory for evaluation. Endocervical and/or squamous metaplastic cells (endocervical component) are present. Performed at: WB Performed By: #### F T4 #### [facility] [address] [address] [address] Manda York MG MAMM SCREEN 3D MARK CADon 09-01-2022 MG MAMM SCREEN 3D MARK CAD Patient: JONES HALEY Exam Date: 09/01/2022 : 1980 Gender:F Ordering : DR MADELAINE FERRIS . Admission #: [id number] Family : Order #: [id number] CLICK HERE TO VIEW EXAM RADIOLOGY REPORT [...] stomach cancer at age 56. LOCATION: [facility] BREAST COMPOSITION: Scattered areas fibroglandular density. [...] Yusuf M.D. on 09/02/2022 at 12:32 Normal [facility] MRI KNEE RT WO CONon 04-01- 022 MRI KNEE RT WO CON HISTORY: [...] MADELAINE GOMEZ Date: 2022-04-01 08:24 Normal [facility] PNEUMOCOCCAL IGG ABS, 23 SER OTYPESon 03-21-2022 Pneumococcal Interpretation See Note [facility] S. pneumoniae 1 IgG (S) [Mass/Vol] 0.27 ug/mL [facility] S. pneumoniae 12 IgG (S) [Mass/Vol] 0.08 ug/mL [facility] S. pneumoniae 14 IgG (S) [Mass/Vol] 0.19 ug/mL [facility] S. pneumoniae 17 IgG (S) [Mass/Vol] 1.72 ug/mL [facility] S. pneumoniae 19 IgG (S) [Mass/Vol] 1.52 ug/mL [facility] S. pneumoniae 2 IgG (S) [Mass/Vol] 0.44 ug/mL [facility] S. pneumoniae 20 IgG (S) [Mass/Vol] 1.53 ug/mL [facility] S. pneumoniae 22 IgG (S) [Mass/Vol] 0.99 ug/mL [facility] S. pneumoniae 23 IgG (S) [Mass/Vol] 0.14 ug/mL [facility] S. pneumoniae 3 IgG (S) [Mass/Vol] 0.36 ug/mL [facility] S. pneumoniae 34 IgG (S) [Mass/Vol] 5.77 ug/mL [facility] S. pneumoniae 4 IgG (S) [Mass/Vol] 0.06 ug/mL [facility] S. pneumoniae 43 IgG (S) [Mass/Vol] 0.93 ug/mL [facility] S. pneumoniae 5 IgG (S) [Mass/Vol] 0.89 ug/mL [facility] S. pneumoniae 8 IgG (S) [Mass/Vol] 0.58 ug/mL [facility] S. pneumoniae 9 IgG (S) [Mass/Vol] 0.4 ug/mL [facility] S. pneumoniae Ugandan type 15B IgG (S) [Mass/Vol] 8.27 ug/mL [facility] S. pneumoniae Ug[place] type 18C IgG (S) [Mass/Vol] 0.39 ug/mL [facility] S. pneumoniae Ug[place] type 19A IgG (S) [Mass/Vol] 17.72 ug/mL [facility] S. pneumoniae [place] type 33F IgG (S) [Mass/Vol] 3.04 ug/mL [facility] S. pneumoniae Ug[place] type 6B IgG (S) [Mass/Vol] 0.82 ug/mL [facility] S. pneumoniae Ug[place] type 7F IgG (S) [Mass/Vol] 0.34 ug/mL [facility] S. pneumoniae Ug[place] type 9V IgG (S) [Mass/Vol] 0.78 ug/mL [facility] XR KNEE RT 4V or >on 022 [...] by: KRISTINA GARRETT Date: 2022-03-21 16:47 Normal [facility] DIPHTHER/TETANUS ABon 2021 C. diphtheriae IgG Qn (S) 0.1 IU/mL [facility] C. tetani toxoid IgG IA Qn 1 IU/mL [facility] IGA BLDon 03-18-2022 IgA [Mass/Vol] 182 mg/dL 70 - 400 mg/dL [facility] IGE BLDon 03-18-2022 IgE Qn 12.3 kU/l <114.0 kU/l [facility] IGGon 03-18-2022 IgG [Mass/Vol] 618 mg/dL Low 700 - 1,600 mg/dL [facility] IGMon 03-18-2022 IgM [Mass/Vol] 514 mg/dL High 40 - 230 mg/dL [facility] Immunodeficiency panel FC (B ld)on 03-18-2022 CD3 cells (Bld) [#/Vol] 2841 cells/uL High 958 - 2,388 cells/uL [facility] CD3 cells/100 cells (Bld) 81 % 60 - 89 % [facility] CD3+CD4+ (T4 helper) cells (Bld) [#/Vol] 1621 cells/uL 533 - 1,674 cells/uL [facility] CD3+CD4+ (T4 helper) cells/100 cells (Bld) 46 % 34 - 61 % [facility] CD3+CD4+ (T4 helper) cells/CD3+CD8+ (T8 suppressor cells) cells (Bld) [# ratio] 1.55 % 1.10 - 3.25 [facility] CD3+CD8+ (T8 suppressor cells) cells (Bld) [#/Vol] 1049 cells/uL High 175 - 958 cells/uL [facility] CD3+CD8+ (T8 suppressor cells) cells/100 cells (Bld) 30 % 10 - 41 % [facility] CD3-CD16+CD56+ (Natural killer) cells (Bld) [#/Vol] 193 cells/uL 102 - 565 cells/uL [facility] CD3-CD16+CD56+ (Natural killer) cells/100 cells (Bld) 5 % 5 - 25 % [facility] CD3-CD19+ cells (Bld) [#/Vol] 475 cells/uL 75 - 660 cells/uL [facility] CD3-CD19+ cells/100 cells (Bld) 13 % 5 - 22 % [facility] CBC W Auto Differential pane l (Bld)on 03-17-2022 Basophils (Bld) [#/Vol] 0.07 10*3/uL <0.11 k/uL [facility] Basophils/100 WBC (Bld) 0.6 % [facility] Differential cell count method Nom (Bld) Auto [facility] Eosinophils (Bld) [#/Vol] 0.18 10*3/uL <0.46 k/uL [facility] Eosinophils/100 WBC (Bld) 1.6 % [facility] Erythrocyte distribution width (RBC) [Ratio] 14.6 % 11.5 - 15.0 % [facility] Hematocrit (Bld) [Volume fraction] 40.5 % 36.0 - 46.0 % [facility] Hemoglobin (Bld) [Mass/Vol] 13.0 g/dL 11.5 - 15.5 g/dL [facility] Immature granulocytes (Bld) [#/Vol] 0.06 10*3/uL <0.10 k/uL [facility] Immature granulocytes/100 WBC (Bld) 0.5 % [facility] Lymphocytes (Bld) [#/Vol] 2.97 10*3/uL 1.00 - 4.00 k/uL [facility] Lymphocytes/100 WBC (Bld) 26.9 % [facility] MCH (RBC) [Entitic mass] 28.4 pg 26.0 - 34.0 pg [facility] MCHC (RBC) [Mass/Vol] 32.1 g/dL 30.5 - 36.0 g/dL [facility] MCV (RBC) [Entitic vol] 88.4 fL 80.0 - 100.0 fL [facility] Monocytes (Bld) [#/Vol] 0.79 10*3/uL <0.87 k/uL [facility] Monocytes/100 WBC (Bld) 7.2 % [facility] Neutrophils (Bld) [#/Vol] 6.97 10*3/uL 1.45 - 7.50 k/uL [facility] Neutrophils/100 WBC (Bld) 63.2 % [facility] Nucleated RBC (Bld) [#/Vol] <0.01 k/uL [facility] Nucleated RBC/100 WBC (Bld) [Ratio] 0.0 /100 WBC [facility] Platelet mean volume (Bld) [Entitic vol] 9.9 fL 9.0 - 12.7 fL [facility] Platelets (Bld) [#/Vol] 314 10*3/uL 150 - 400 k/uL [facility] RBC (Bld) [#/Vol] 4.58 10*6/uL 3.90 - 5.2 0 m/uL [facility] WBC (Bld) [#/Vol] 11.04 10*3/uL High 3.70 - 11.00 k/uL [facility] ECHOCARDIO M/2D COMPLETEon 1 ECHOCARDIO M/2D COMPLETE Patient: JONES HALEY Exam Date: 03/12/2022 : 1980 Gender:F Ordering : DR MADELAINE FERRIS . Admission #: [id number] Family : Order #: [id number] CLICK HERE TO VIEW EXAM ECHOCARDIOGRAM REPORT [...] M.D. on 03/16/2022 at 16:47 Normal [facility] INSULINon 03-11-2022 Insulin 17.8 uIU/mL Normal 2.6-24.9 [facility] Comment on above: Performed By: #### C BC #### [facility] [address] [place] [address] Dr. Manda York CBC AUTO DIFFon 03-09-2022 BASO # 0.1 103/ul Normal 0.0-0.1 [facility] Comment on above: Performed By: #### C BC #### [facility] [address] [address] [address] Manda York Basophils/100 WBC (Bld) 0.4 % Normal 0.2-2.0 [facility] Comment on above: Performed By: #### C BC #### [facility] [address] [address] [address] Manda York EO # 0.2 103/ul Normal 0.0-0.7 [facility] Comment on above: Performed By: #### C BC #### [facility] [address] [place] [address] Dr. Manda York Eosinophils/100 WBC (Bld) 1.2 % Normal 0.9-7.0 [facility] Comment on above: Performed By: #### C BC #### [facility] [address] [place] [address] Dr. Manda York Erythrocyte distribution width (RBC) [Ratio] 14.6 % Normal 11.0-15.0 [facility] Comment on above: Performed By: #### C BC #### [facility] [address] [place] [address] Dr. Manda York Hematocrit (Bld) [Volume fraction] 39.2 % Normal 36.0-48.0 [facility] Comment on above: Performed By: #### C BC #### [facility] [address] [place] [address] Dr. Manda York Hemoglobin (Bld) [Mass/Vol] 12.7 g/dL Normal 12.0-16.0 [facility] Comment on above: Performed By: #### C BC #### [facility] [address] [place] [address] Dr. Manda York IG # 0.06 10e3/ul Critically high 0.00-0.03 [facility] Comment on above: Performed By: #### C BC #### [facility] [address] [place] [address] Dr. Manda York IG % 0.5 % Normal 0.0-0.5 [facility] Comment on above: Performed By: #### C BC #### [facility] [address] [place] [address] Dr. Manda York LYMPH # 3.7 103/ul Normal 1.2-3.8 [facility] Comment on above: Performed By: #### C BC #### [facility] [address] [place] [address] Dr. Manda York Lymphocytes/100 WBC (Bld) 31.0 % Normal 20.5-60.0 [facility] Comment on above: Performed By: #### C BC #### [facility] [address] [place] [address] Dr. Manda York MANUAL DIFF REQ NO Normal [facility] Comment on above: Performed By: #### C BC #### [facility] [address] [place] [address] Dr. Manda York MCH (RBC) [Entitic mass] 28.9 pg Normal 26.7-34.0 [facility] Comment on above: Performed By: #### C BC #### [facility] [address] [place] [address] Dr. Manda York MCHC (RBC) [Mass/Vol] 32.4 g/dL Normal 29.9-35.2 [facility] Comment on above: Performed By: #### C BC #### [facility] [address] [place] [address] Dr. Manda York MCV (RBC) [Entitic vol] 89.1 fL Normal 81.0-99.0 [facility] Comment on above: Performed By: #### C BC #### [facility] [address] [place] [address] Dr. Manda York MONO # 0.7 103/ul Normal 0.3-0.8 [facility] Comment on above: Performed By: #### C BC #### [facility] [address] [place] [address] Dr. Manda York Monocytes/100 WBC (Bld) 5.8 % Normal 1.7-12.0 [facility] Comment on above: Performed By: #### C BC #### [facility] [address] [place] [address] Dr. Manda York NEUT # 7.3 103/ul Critically high 1.4-6.5 [facility] Comment on above: Performed By: #### C BC #### [facility] [address] [place] [address] Dr. Manda York Neutrophils/100 WBC (Bld) 61.1 % Normal 43.0-75.0 [facility] Comment on above: Performed By: #### C BC #### [facility] [address] [place] [address] Dr. Manda York Platelet mean volume (Bld) [Entitic vol] 9.7 fL Normal 9.5-13.5 [facility] Comment on above: Performed By: #### C BC #### [facility] [address] [place] [address] Dr. Manda York PLT 297 103/ul Normal 150-450 [facility] Comment on above: Performed By: #### C BC #### [facility] [address] [place] [address] Dr. Manda York RBC 4.40 106/ul Normal 4.20-5.40 [facility] Comment on above: Performed By: #### C BC #### [facility] [address] [place] [address] Dr. Manda York WBC 12.0 103/ul Critically high 4.0-11.0 [facility] Comment on above: Performed By: #### C BC #### [facility] [address] [place] [address] Dr. Manda York FREE THYROXINE INDEX T7on FTI 3.81 Normal 1.30-4.50 [facility] Comment on above: Performed By: #### U AMIC #### [facility] [address] [place] [address] Dr. Manda York T3U 34.0 % Normal 30.0-39.0 [facility] Comment on above: Performed By: #### U AMIC #### [facility] [address] [place] [address] Dr. Manda York T4 [Mass/Vol] 11.20 ug/dL Normal 4.80-13.90 [facility] Comment on above: Performed By: #### U AMIC #### [facility] [address] [place] [address] Dr. Manda York GLYCOHEMOGLOBIN A1Con 2021 ADA RECOMMENDATION SEE BELOW Normal [facility] Comment on above: Result Comment: ADA RECOMMENDED LIMIT 4.0 - 6.0 ADA THERAPEUTIC TARGET < 7.0 ACTION SUGGESTED > 7.0 Performed By: #### S LUIGI MELO #### [facility] [address] [address] [address] Manda York Glucose [Mass/Vol] 117 mg/dL Normal [facility] Comment on above: Performed By: #### S LUIGI MELO #### [facility] [address] [place] [address] Dr. Manda York HbA1c (Bld) [Mass fraction] 5.7 % Normal 4.5-6.2 [facility] Comment on above: Performed By: #### S LUIGI MELO #### [facility] [address] [place] [address] Dr. Manda York IRONon 03-09-2022 Iron [Mass/Vol] 61.0 ug/dL Normal 50.0-170.0 [facility] Comment on above: Performed By: #### C BC #### [facility] [address] [place] [address] Dr. Manda York LIPID PROFILEon 03-09-2022 CHOL-HDL RATIO NORM SEE BELOW Normal [facility] Comment on above: Result Comment: 3.3 - 4.4 LOW RISK 4.4 - 7.1 AVERAGE RISK 7.1 - 11.0 MODERATE RISK >11.0 HIGH RISK Performed By: #### U AMIC #### [facility] [address] [place] [address] Dr. Manda York Cholesterol [Mass/Vol] 260 mg/dL Critically high <=200 [facility] Comment on above: Performed By: #### U AMIC #### [facility] [address] [place] [address] Dr. Manda York Cholesterol in HDL [Mass/Vol] 38 mg/dL Critically low 40-60 [facility] Comment on above: Performed By: #### U AMIC #### [facility] [address] [place] [address] Dr. Manda York Cholesterol in LDL [Mass/Vol] 170.8 mg/dL Normal [facility] Comment on above: Performed By: #### U AMIC #### [facility] [address] [address] [address] Manda York Cholesterol.total/Ch olesterol in HDL [Mass ratio] 6.8 {ratio} Normal [facility] Comment on above: Performed By: #### U AMIC #### [facility] [address] [address] [address] Manda York HDL NORMAL > or = 60 mg/dl - LO W CARDIOVASCULAR RISK <40 mg/dl - HIGH CARDIOVASCULAR RISK Normal [facility] Comment on above: Performed By: #### U AMIC #### [facility] [address] [address] [address] Manda York LDL CALC NORMAL SEE BELOW Normal [facility] Comment on above: Result Comment: <100 mg/dl OPTIMAL 100 - 129 mg/dl NEAR OR ABOVE OPTIMAL 130 - 159 mg/dl BORDERLINE HIGH 160 - 189 mg/dl HIGH >190 mg/dl VERY HIGH Performed By: #### U AMIC #### [facility] [address] [address] [address] Manda York Triglyceride [Mass/Vol] 256 mg/dL Critically high <=150 [facility] Comment on above: Performed By: #### U AMIC #### [facility] [address] [place] [address] Dr. Manda York VLDL CALC 51.2 mg/dL Normal [facility] Comment on above: Performed By: #### U AMIC #### [facility] [address] [address] [address] Manda York PROF 14(COMP METB)on 022 Albumin [Mass/Vol] 3.8 g/dL Normal 3.4-5.0 [facility] Comment on above: Performed By: #### U AMIC #### [facility] [address] [place] [address] Dr. Manda York Albumin/Globulin [Mass ratio] 1.0 {ratio} Normal [facility] Comment on above: Performed By: #### U AMIC #### [facility] [address] [address] [address] Manda York ALP [Catalytic activity/Vol] 66 U/L Normal 46-116 [facility] Comment on above: Performed By: #### U AMIC #### [facility] [address] [address] [address] Manda York ALT [Catalytic activity/Vol] 27 U/L Normal 14-59 [facility] Comment on above: Performed By: #### U AMIC #### [facility] [address] [address] [address] Manda York Anion gap [Moles/Vol] 11.8 mmol/L Normal [facility] Comment on above: Performed By: #### U AMIC #### [facility] [address] [address] [address] Manda York AST [Catalytic activity/Vol] 9 U/L Critically low 15-37 [facility] Comment on above: Performed By: #### U AMIC #### [facility] [address] [address] [address] Manda York Bilirubin [Mass/Vol] 0.2 mg/dL Normal 0.2-1.0 [facility] Comment on above: Performed By: #### U AMIC #### [facility] [address] [address] [address] Manda York Calcium [Mass/Vol] 9.1 mg/dL Normal 8.5-10.1 [facility] Comment on above: Performed By: #### U AMIC #### [facility] [address] [address] [address] Manda York Chloride [Moles/Vol] 101 mmol/L Normal 98-107 [facility] Comment on above: Performed By: #### U AMIC #### [facility] [address] [address] [address] Manda York CO2 [Moles/Vol] 26.1 mmol/L Normal 21.0-32.0 [facility] Comment on above: Performed By: #### U AMIC #### [facility] [address] [address] [address] Manda York Creatinine [Mass/Vol] 0.80 mg/dL Normal 0.55-1.02 [facility] Comment on above: Performed By: #### U AMIC #### [facility] [address] [address] [address] Manda York EGFR-AF PRYDEINIG >60 Normal >=60 [facility] Comment on above: Performed By: #### U AMIC #### [facility] [address] [address] [address] Manda York EGFR-NON AF PRYDEINIG >60 Normal >=60 [facility] Comment on above: Performed By: #### U AMIC #### [facility] [address] [address] [address] Manda York Globulin (S) [Mass/Vol] 3.8 g/dL Normal [facility] Comment on above: Performed By: #### U AMIC #### [facility] [address] [address] [address] Manda York Glucose [Mass/Vol] 93 mg/dL Normal 74-106 [facility] Comment on above: Performed By: #### U AMIC #### [facility] [address] [address] [address] Manda York Potassium [Moles/Vol] 3.9 mmol/L Normal 3.5-5.1 [facility] Comment on above: Performed By: #### U AMIC #### [facility] [address] [address] [address] Manda York Protein [Mass/Vol] 7.6 g/dL Normal 6.4-8.2 [facility] Comment on above: Performed By: #### U AMIC #### [facility] [address] [address] [address] Manda York Sodium [Moles/Vol] 135 mmol/L Critically low 136-145 [facility] Comment on above: Performed By: #### U AMIC #### [facility] [address] [address] [address] Manda York Urea nitrogen [Mass/Vol] 10.0 mg/dL Normal 7.0-18.0 [facility] Comment on above: Performed By: #### U AMIC #### [facility] [address] [address] [address] Manda York Urea nitrogen/Creatinine [Mass ratio] 12.5 mg/mg Normal [facility] Comment on above: Performed By: #### U AMIC #### [facility] [address] [place], [place] [address] Dr. Manda York TSHon 03-09-2022 TSH 0.610 uIU/mL Normal 0.358-3.740 [facility] Comment on above: Performed By: #### U AMIC #### [facility] [address] [address] [address] Manda York B2 MICROGLOBULIN Bon 022 [id number] [Mass/Vol] 1.8 ug/mL 0.8 - 2.4 mg/L [facility] FERRITIN BLDon 03-05-2022 Ferritin [Mass/Vol] 33.2 ng/mL 14.7 - 205.1 ng/mL [facility] FOLATE SERUMon 03-05-2022 Folate [Mass/Vol] 6.6 ng/mL >4.7 ng/mL [facility] Iron and Iron binding capaci ty panelon 03-05-2022 Iron [Mass/Vol] 49 ug/dL 41 - 186 ug/dL [facility] Iron binding capacity [Mass/Vol] 392 ug/dL High 232 - 386 ug/dL [facility] Iron/TIBC [Molar ratio] 12.5 % Low 15.0 - 57.0 % [facility] CBC W Auto Differential pane l (Bld)on 03-04-2022 Basophils (Bld) [#/Vol] 0.07 10*3/uL <0.11 k/uL [facility] Basophils/100 WBC (Bld) 0.6 % [facility] Differential cell count method Nom (Bld) Auto [facility] Eosinophils (Bld) [#/Vol] 0.19 10*3/uL <0.46 k/uL [facility] Eosinophils/100 WBC (Bld) 1.7 % [facility] Erythrocyte distribution width (RBC) [Ratio] 14.7 % 11.5 - 15.0 % [facility] Hematocrit (Bld) [Volume fraction] 40.0 % 36.0 - 46.0 % [facility] Hemoglobin (Bld) [Mass/Vol] 13.0 g/dL 11.5 - 15.5 g/dL [facility] Immature granulocytes (Bld) [#/Vol] 0.07 10*3/uL <0.10 k/uL [facility] Immature granulocytes/100 WBC (Bld) 0.6 % [facility] Lymphocytes (Bld) [#/Vol] 3.31 10*3/uL 1.00 - 4.00 k/uL [facility] Lymphocytes/100 WBC (Bld) 30.2 % [facility] MCH (RBC) [Entitic mass] 28.9 pg 26.0 - 34.0 pg [facility] MCHC (RBC) [Mass/Vol] 32.5 g/dL 30.5 - 36.0 g/dL [facility] MCV (RBC) [Entitic vol] 88.9 fL 80.0 - 100.0 fL [facility] Monocytes (Bld) [#/Vol] 0.70 10*3/uL <0.87 k/uL [facility] Monocytes/100 WBC (Bld) 6.4 % [facility] Neutrophils (Bld) [#/Vol] 6.63 10*3/uL 1.45 - 7.50 k/uL [facility] Neutrophils/100 WBC (Bld) 60.5 % [facility] Nucleated RBC (Bld) [#/Vol] <0.01 k/uL [facility] Nucleated RBC/100 WBC (Bld) [Ratio] 0.0 /100 WBC [facility] Platelet mean volume (Bld) [Entitic vol] 9.6 fL 9.0 - 12.7 fL [facility] Platelets (Bld) [#/Vol] 355 10*3/uL 150 - 400 k/uL [facility] RBC (Bld) [#/Vol] 4.50 10*6/uL 3.90 - 5.2 0 m/uL [facility] WBC (Bld) [#/Vol] 10.97 10*3/uL 3.70 - 11.00 k/uL [facility] Calcium.ionized [Moles/Vol]o n 03-04-2022 Calcium.ionized (Bld) [Mass/Vol] 1.26 mmol/L 1.08 - 1.30 mmol/L [facility] Calcium.ionized adjusted to pH 7.4 (Bld) [Moles/Vol] 1.25 mmol/L 1.08 - 1.30 mmol/L [facility] Comprehensive metabolic 2000 panelon 03-04-2022 Albumin [Mass/Vol] 4.3 g/dL 3.9 - 4.9 g/dL [facility] ALP [Catalytic activity/Vol] 70 U/L 34 - 123 U/L [facility] ALT [Catalytic activity/Vol] 26 U/L 7 - 38 U/L [facility] Anion gap [Moles/Vol] 7 mmol/L Low 9 - 18 mmol/L [facility] AST [Catalytic activity/Vol] 12 U/L Low 13 - 35 U/L [facility] Bilirubin [Mass/Vol] 0.2 mg/dL 0.2 - 1 .3 mg/dL [facility] Calcium [Mass/Vol] 9.3 mg/dL 8.5 - 10. 2 mg/dL [facility] Chloride [Moles/Vol] 103 mmol/L 97 - 10 5 mmol/L [facility] CO2 [Moles/Vol] 28 mmol/L 22 - 30 mmol/L [facility] Creatinine [Mass/Vol] 0.69 mg/dL 0.58 - 0.96 mg/dL [facility] Estimated Glomerular Filtration Rate 112 mL/min/1.73m >=60 mL/min/1.73 m [facility] Glucose [Mass/Vol] 100 mg/dL High 74 - 99 mg/dL [facility] Potassium [Moles/Vol] 3.9 mmol/L 3.7 - 5.1 mmol/L [facility] Protein [Mass/Vol] 7.0 g/dL 6.3 - 8.0 g/dL [facility] Sodium [Moles/Vol] 138 mmol/L 136 - 144 mmol/L [facility] Urea nitrogen [Mass/Vol] 12 mg/dL 7 - 21 mg/dL [facility] LD LACTATE DEHYDROon 022 LDH [Catalytic activity/Vol] 135 U/L 135 - 214 U/L [facility] PHOSPHORUS INORGANICon 03-04 Phosphate [Mass/Vol] 3.2 mg/dL 2.7 - 4 .8 mg/dL [facility] URIC ACID BLOODon 03-04-2022 Urate [Mass/Vol] 5.2 mg/dL 2.5 - 6.6 mg/dL [facility] IMMUNOGLOBULINS IGA/IGM/IGG/ IGE QUANTITAon 02-20-2022 Immunoglobulin A, Qn, Serum 189 mg/dL Normal 87-352 [facility] Comment on above: Result Comment: Perf ormed at: CB Performed By: #### S LEANN MELOC #### [facility] [address] [address] [address] Manda York Immunoglobulin E, Total 10 IU/mL Normal 6-495 [facility] Comment on above: Result Comment: Perf ormed at: BN Performed By: #### S LEANN MELOC #### [facility] [address] [address] [address] Manda York Immunoglobulin G, Qn, Serum 598 mg/dL Normal 586-1602 [facility] Comment on above: Result Comment: Perf ormed at: CB Performed By: #### LEANN PATRICKC #### [facility] [address] [address] [address] Manda York Immunoglobulin M, Qn, Serum 493 mg/dL Critically high 26-217 [facility] Comment on above: Result Comment: Perf ormed at: CB Performed By: #### S LORIE THYLC #### [facility] [address] [address] [address] Manda York CHRISTIAN by IFAon 02-19-2022 Antinuclear Antibodies, IFA Negative Normal [facility] Comment on above: Result Comment: Nega tive <1:80 Borderline 1:80 Positive >1:80 ICAP nomenclature: [id number] For more information about Hep-2 cell patterns use ANApatterns.org, the official website for the International Consensus on Antinuclear Antibody (CHRISTIAN) Patterns (ICAP). Performed By: #### S LEANN MELOC #### [facility] [address] [place] [address] Dr. Manda York THYROID ANTIBODIESon 022 Thyroglobulin Antibody <1.0 Normal 0.0-0.9 [facility] Comment on above: Result Comment: Thyr oglobulin Antibody measured by [employer] Methodology Performed By: #### F T4 #### [facility] [address] [place] [address] Dr. Manda York Thyroid Peroxidase (TPO) Ab <8 Normal 0-34 [facility] Comment on above: Performed By: #### F T4 #### [facility] [address] [place] [address] Dr. Manda York PROTEIN ELECTROPHERESISon Albumin [Mass/Vol] 3.2 g/dL Normal 2.9-4.4 [facility] Comment on above: Performed By: #### F T4 #### [facility] [address] [place] [address] Dr. Manda York Albumin/Globulin [Mass ratio] 1.0 {ratio} Normal 0.7-1.7 [facility] Comment on above: Performed By: #### F T4 #### [facility] [address] [place] [address] Dr. Manda York Tgogr-8-Aefjxugu 0.2 g/dL Normal 0.0-0.4 [facility] Comment on above: Performed By: #### F T4 #### [facility] [address] [place] [address] Dr. Manda York Ztoub-8-Rgqljvrr 0.9 g/dL Normal 0.4-1.0 [facility] Comment on above: Performed By: #### F T4 #### [facility] [address] [place] [address] Dr. Manda York Beta Globulin 1.2 g/dL Normal 0.7-1.3 [facility] Comment on above: Performed By: #### F T4 #### [facility] [address] [place] [address] Dr. Manda York Gamma Globulin 0.9 g/dL Normal 0.4-1.8 [facility] Comment on above: Performed By: #### F T4 #### [facility] [address] [place] [address] Dr. Manda York Globulin (S) [Mass/Vol] 3.2 g/dL Normal 2.2-3.9 [facility] Comment on above: Performed By: #### F T4 #### [facility] [address] [place] [address] Dr. Manda York M-Jose De Jesus Not Observed Normal Not Observed [facility] Comment on above: Performed By: #### F T4 #### [facility] [address] [place] [address] Dr. Manda York PDF . Normal [facility] Comment on above: Performed By: #### F T4 #### [facility] [address] [place] [address] Dr. Manda York Please note: Comment Normal [facility] Comment on above: Result Comment: Prot ein electrophoresis scan will follow via computer, mail, or sleeve presser operator delivery. Performed By: #### F T4 #### [facility] [address] [place] [address] Dr. Manda York Protein [Mass/Vol] 6.4 g/dL Normal 6.0-8.5 [facility] Comment on above: Performed By: #### F T4 #### [facility] [address] [place] [address] Dr. Manda York SLE PROFILE Aon 02-16-2022 Anti-DNA (DS) Ab Qn 9 IU/mL Normal 0-9 [facility] Comment on above: Result Comment: Nega tive <5 Equivocal 5 - 9 Positive >9 Performed By: #### LUIGI PATRICK #### [facility] [address] [place] [address] Dr. Manda York Antichromatin Antibodies <0.2 Normal 0.0-0.9 [facility] Comment on above: Performed By: #### S LEANN MELOC #### [facility] [address] [place] [address] Dr. Manda York RA Latex Turbid. <10.0 Normal <14.0 [facility] Comment on above: Performed By: #### S LUIGI MELO #### [facility] [address] [place] [address] Dr. Manda York LAYOUT TECHNICIAN Antibodies <0.2 Normal 0.0-0.9 [facility] Comment on above: Performed By: #### S LUIGI MELO #### [facility] [address] [place] [address] Dr. Manda York Sjogren'tye Anti-SS-A <0.2 Normal 0.0-0.9 [facility] Comment on above: Performed By: #### LUIGI PATRICK #### [facility] [address] [place] [address] Dr. Manda York Sjogren'tye Anti-SS-B <0.2 Normal 0.0-0.9 [facility] Comment on above: Performed By: #### LUIGI PATRICK #### [facility] [address] [place] [address] Dr. Manda York Schneider Antibodies <0.2 Normal 0.0-0.9 [facility] Comment on above: Performed By: #### LUIGI PATRICK #### [facility] [address] [place] [address] Dr. Manda York ANTISTREPTOLYSIN O AB (ASO)o n 02-15-2022 Antistreptolysin O Ab 49.6 IU/mL Normal 0.0-200.0 [facility] Comment on above: Performed By: #### A SOAB #### [facility] [address] [place] [address] Dr. Mnada York MICROALBUMIN URINEon 022 Albumin, Urine <3.0 Normal Not Estab. [facility] Comment on above: Result Comment: Ve rified by repeat analysis Performed By: #### C BC #### [facility] [address] [place] [address] Dr. Manda York T4, T3U, FTI LABCORPon 02-15 Free Thyroxine Index 2.6 Normal 1.2-4.9 [facility] Comment on above: Performed By: #### LUIGI PATRICK #### [facility] [address] [place] [address] Dr. Manda York T3 Uptake 26 % Normal 24-39 [facility] Comment on above: Performed By: #### LUIGI PATRICK #### [facility] [address] [address] [address] Manda York T4 [Mass/Vol] 9.9 ug/dL Normal 4.5-12.0 [facility] Comment on above: Performed By: #### S LORIE [facility] #### [facility] [address] [place] [address] Dr. Manda York CBC AUTO DIFFon 02-14-2022 BASO # 0.1 103/ul Normal 0.0-0.1 [facility] Comment on above: Performed By: #### U AMIC #### [facility] [address] [place] [address] Dr. Manda York Basophils/100 WBC (Bld) 0.6 % Normal 0.2-2.0 [facility] Comment on above: Performed By: #### U AMIC #### [facility] [address] [place] [address] Dr. Manda York EO # 0.3 103/ul Normal 0.0-0.7 [facility] Comment on above: Performed By: #### U AMIC #### [facility] [address] [place] [address] Dr. Manda York Eosinophils/100 WBC (Bld) 3.4 % Normal 0.9-7.0 [facility] Comment on above: Performed By: #### U AMIC #### [facility] [address] [place] [address] Dr. Manda York Erythrocyte distribution width (RBC) [Ratio] 14.6 % Normal 11.0-15.0 [facility] Comment on above: Performed By: #### U AMIC #### [facility] [address] [place] [address] Dr. Manda York Hematocrit (Bld) [Volume fraction] 39.1 % Normal 36.0-48.0 [facility] Comment on above: Performed By: #### U AMIC #### [facility] [address] [place] [address] Dr. Manda York Hemoglobin (Bld) [Mass/Vol] 12.4 g/dL Normal 12.0-16.0 [facility] Comment on above: Performed By: #### U AMIC #### [facility] [address] [address] [address] Manda York IG # 0.03 10e3/ul Normal 0.00-0.03 [facility] Comment on above: Performed By: #### U AMIC #### [facility] [address] [place] [address] Dr. Manda York IG % 0.3 % Normal 0.0-0.5 [facility] Comment on above: Performed By: #### U AMIC #### [facility] [address] [place] [address] Dr. Manda York LYMPH # 3.6 103/ul Normal 1.2-3.8 [facility] Comment on above: Performed By: #### U AMIC #### [facility] [address] [place] [address] Dr. Manda York Lymphocytes/100 WBC (Bld) 39.9 % Normal 20.5-60.0 [facility] Comment on above: Performed By: #### U AMIC #### [facility] [address] [place] [address] Dr. Manda York MANUAL DIFF REQ NO Normal [facility] Comment on above: Performed By: #### U AMIC #### [facility] [address] [place] [address] Dr. Manda York MCH (RBC) [Entitic mass] 28.4 pg Normal 26.7-34.0 [facility] Comment on above: Performed By: #### U AMIC #### [facility] [address] [place] [address] Dr. Manda York MCHC (RBC) [Mass/Vol] 31.7 g/dL Normal 29.9-35.2 [facility] Comment on above: Performed By: #### U AMIC #### [facility] [address] [place] [address] Dr. Manda York MCV (RBC) [Entitic vol] 89.7 fL Normal 81.0-99.0 [facility] Comment on above: Performed By: #### U AMIC #### [facility] [address] [address] [address] Manda York MONO # 0.7 103/ul Normal 0.3-0.8 [facility] Comment on above: Performed By: #### U AMIC #### [facility] [address] [address] [address] Manda York Monocytes/100 WBC (Bld) 7.3 % Normal 1.7-12.0 [facility] Comment on above: Performed By: #### U AMIC #### [facility] [address] [address] [address] Manda York NEUT # 4.4 103/ul Normal 1.4-6.5 [facility] Comment on above: Performed By: #### U AMIC #### [facility] [address] [place] [address] Dr. Manda York Neutrophils/100 WBC (Bld) 48.5 % Normal 43.0-75.0 [facility] Comment on above: Performed By: #### U AMIC #### [facility] [address] [place] [address] Dr. Manda York Platelet mean volume (Bld) [Entitic vol] 10.1 fL Normal 9.5-13.5 [facility] Comment on above: Performed By: #### U AMIC #### [facility] [address] [place] [address] Dr. Manda Yokr PLT 310 103/ul Normal 150-450 [facility] Comment on above: Performed By: #### U AMIC #### [facility] [address] [address] [address] Manda York RBC 4.36 106/ul Normal 4.20-5.40 [facility] Comment on above: Performed By: #### U AMIC #### [facility] [address] [address] [address] Manda York WBC 9.0 103/ul Normal 4.0-11.0 [facility] Comment on above: Performed By: #### U AMIC #### [facility] [address] [place] [address] Dr. Manda York CRPon 02-14-2022 CRP [Mass/Vol] mg/L Normal <=1.0 [facility] Comment on above: Performed By: #### U AMIC #### [facility] [address] [place] [address] Dr. Manda York CULTURE URINEon 02-14-2022 CULTURE URINE Culture Observations : LIGHT GROWTH OF MIXED GENITAL AMBER. NO POTENTIAL PATHOGENS SEEN. Normal [facility] Comment on above: Performed By: #### C BC #### [facility] [address] [place] [address] Dr. Manda York PROF 14(COMP METB)on 022 Albumin [Mass/Vol] 3.5 g/dL Normal 3.4-5.0 [facility] Comment on above: Performed By: #### U AMIC #### [facility] [address] [place] [address] Dr. Manda York Albumin/Globulin [Mass ratio] 1.0 {ratio} Normal [facility] Comment on above: Performed By: #### U AMIC #### [facility] [address] [place] [address] Dr. Manda York ALP [Catalytic activity/Vol] 71 U/L Normal 46-116 [facility] Comment on above: Performed By: #### U AMIC #### [facility] [address] [place] [address] Dr. Manda York ALT [Catalytic activity/Vol] 46 U/L Normal 14-59 [facility] Comment on above: Performed By: #### U AMIC #### [facility] [address] [place] [address] Dr. Manda York Anion gap [Moles/Vol] 11.6 mmol/L Normal [facility] Comment on above: Performed By: #### U AMIC #### [facility] [address] [place] [address] Dr. Manda York AST [Catalytic activity/Vol] 15 U/L Normal 15-37 [facility] Comment on above: Performed By: #### U AMIC #### [facility] [address] [address] [address] Manda York Bilirubin [Mass/Vol] 0.2 mg/dL Normal 0.2-1.0 [facility] Comment on above: Performed By: #### U AMIC #### [facility] [address] [address] [address] Manda York Calcium [Mass/Vol] 8.7 mg/dL Normal 8.5-10.1 [facility] Comment on above: Performed By: #### U AMIC #### [facility] [address] [address] [address] Manda York Chloride [Moles/Vol] 104 mmol/L Normal 98-107 [facility] Comment on above: Performed By: #### U AMIC #### [facility] [address] [address] [address] Manda York CO2 [Moles/Vol] 25.1 mmol/L Normal 21.0-32.0 [facility] Comment on above: Performed By: #### U AMIC #### [facility] [address] [address] [address] Manda York Creatinine [Mass/Vol] 0.80 mg/dL Normal 0.55-1.02 [facility] Comment on above: Performed By: #### U AMIC #### [facility] [address] [address] [address] Manda York EGFR-AF PRYDEINIG >60 Normal >=60 [facility] Comment on above: Performed By: #### U AMIC #### [facility] [address] [address] [address] Manda York EGFR-NON AF PRYDEINIG >60 Normal >=60 [facility] Comment on above: Performed By: #### U AMIC #### [facility] [address] [address] [address] Manda York Globulin (S) [Mass/Vol] 3.6 g/dL Normal [facility] Comment on above: Performed By: #### U AMIC #### [facility] [address] [address] [address] Manda York Glucose [Mass/Vol] 92 mg/dL Normal 74-106 [facility] Comment on above: Performed By: #### U AMIC #### [facility] [address] [address] [address] Manda York Potassium [Moles/Vol] 3.7 mmol/L Normal 3.5-5.1 [facility] Comment on above: Performed By: #### U AMIC #### [facility] [address] [address] [address] Manda York Protein [Mass/Vol] 7.1 g/dL Normal 6.4-8.2 [facility] Comment on above: Performed By: #### U AMIC #### [facility] [address] [place] [address] Dr. Manda York Sodium [Moles/Vol] 137 mmol/L Normal 136-145 [facility] Comment on above: Performed By: #### U AMIC #### [facility] [address] [place] [address] Dr. Manda York Urea nitrogen [Mass/Vol] 17.0 mg/dL Normal 7.0-18.0 [facility] Comment on above: Performed By: #### U AMIC #### [facility] [address] [place] [address] Dr. Manda York Urea nitrogen/Creatinine [Mass ratio] 21.2 mg/mg Normal [facility] Comment on above: Performed By: #### U AMIC #### [facility] [address] [address] [address] Manda York SED RATE WESTERGRENon 2021 SED RATE 40 mm/hr Critically high <=20 [facility] Comment on above: Performed By: #### S EDR #### [facility] [address] [address] [address] Manda York TSHon 02-14-2022 TSH 1.155 uIU/mL Normal 0.358-3.740 [facility] Comment on above: Performed By: #### U AMIC #### [facility] [address] [address] [address] Manda York UA RANDOM W/MICROSCOPICon BACTERIA NONE SEEN Normal NONE SEEN [facility] Comment on above: Performed By: #### U AMIC #### [facility] [address] [place] [address] Dr. Manda York Bilirubin Ql (U) Negative Normal NEGATIVE [facility] Comment on above: Performed By: #### U AMIC #### [facility] [address] [address] [address] Manda York CAST NONE SEEN Normal NONE SEEN [facility] Comment on above: Performed By: #### U AMIC #### [facility] [address] [place] [address] Dr. Manda York Clarity (U) CLEAR Normal CLEAR [facility] Comment on above: Performed By: #### U AMIC #### [facility] [address] [place] [address] Dr. Manda York Color (U) LT. YELLOW Normal YELLOW [facility] Comment on above: Performed By: #### U AMIC #### [facility] [address] [place] [address] Dr. Manda York Crystals LM Nom (Urine sed) NONE SEEN Normal NONE SEEN [facility] Comment on above: Performed By: #### U AMIC #### [facility] [address] [place] [address] Dr. Manda York Epithelial cells LM Ql (Urine sed) RARE Normal NONE SEEN /RARE [facility] Comment on above: Performed By: #### U AMIC #### [facility] [address] [place] [address] Dr. Manda York Glucose Ql (U) Negative Normal NEGATIVE [facility] Comment on above: Performed By: #### U AMIC #### [facility] [address] [place] [address] Dr. Manda York Hemoglobin Ql (U) Negative Normal NEGATIVE [facility] Comment on above: Performed By: #### U AMIC #### [facility] [address] [place] [address] Dr. Manda York Ketones Ql (U) Negative Normal NEGATIVE [facility] Comment on above: Performed By: #### U AMIC #### [facility] [address] [place] [address] Dr. Manda York LEUKOCYTES Negative Normal NEGATIVE [facility] Comment on above: Performed By: #### U AMIC #### [facility] [address] [place] [address] Dr. Manda York MUCOUS NONE SEEN Normal NONE SEEN [facility] Comment on above: Performed By: #### U AMIC #### [facility] [address] [place] [address] Dr. Manda York Nitrite Ql (U) Negative Normal NEGATIVE [facility] Comment on above: Performed By: #### U AMIC #### [facility] [address] [place] [address] Dr. Manda York pH (U) 6.0 [pH] Normal 5-9 [facility] Comment on above: Performed By: #### U AMIC #### [facility] [address] [place] [address] Dr. Manda York RBC NONE SEEN Abnormal 0-2 [facility] Comment on above: Performed By: #### U AMIC #### [facility] [address] [place] [address] Dr. Manda York SPEC GRAVITY 1.005 Normal 1.005-<=1.0 25 [facility] Comment on above: Performed By: #### U AMIC #### [facility] [address] [place] [address] Dr. Manda York UA PROTEIN Negative Normal NEGATIVE/ TRACE [facility] Comment on above: Performed By: #### U AMIC #### [facility] [address] [place] [address] Dr. Manda York Urobilinogen Qn (U) 0.2 {Carmella'U}/dL Normal 0.2 - 1. 0 [facility] Comment on above: Performed By: #### U AMIC #### [facility] [address] [place] [address] Dr. Manda York WBC NONE SEEN Normal NONE SEEN [facility] Comment on above: Performed By: #### U AMIC #### [facility] [address] [address] [address] Manda York URIC ACID SERUMon 02-14-2022 Urate [Mass/Vol] 4.2 mg/dL Normal 2.6-6.0 [facility] Comment on above: Performed By: #### U AMIC #### [facility] [address] [address] [address] Manda York VITAMIN D 25 OHon 02-14-2022 VIT D 25-OH 22.4 ng/mL Normal [facility] Comment on above: Performed By: #### F T4 #### [facility] [address] [place] [address] Dr. Manda York VIT D RANGES SEE BELOW Normal [facility] Comment on above: Result Comment: <20 ng/mL Vit D deficient 20 - <30 ng/mL Vit D insufficient 30 - 100 ng/mL Vit D sufficient >100 ng/mL Potential Toxicity Performed By: #### F T4 #### [facility] [address] [place] [address] Dr. Manda York METANEPHRINES FRAC. QNT 24 H R URINEon 11-28-2021 Metanephrine, U,24hr Comment Normal 36-209 [facility] Comment on above: Result Comment: No t otal volume submitted. Unable to calculate 24 hour result. Performed By: #### S LEANN MELOC #### [facility] [address] [place] [address] Dr. Manda York Metanephrine, Ur 57 ug/L Normal Undefined [facility] Comment on above: Performed By: #### S LORIE THYLC #### [facility] [address] [place] [address] Dr. Manda York Normetanephr.,U,24h Comment Normal 131-612 [facility] Comment on above: Result Comment: No t otal volume submitted. Unable to calculate 24 hour result. Performed By: #### S LEANN MELOC #### [facility] [address] [place] [address] Dr. Manda York Normetanephrine, Ur 116 ug/L Normal Undefined [facility] Comment on above: Performed By: #### LEANN PATRICKC #### [facility] [address] [place] [address] Dr. Manda York METANEPHRINES PLASMA FREEon 11-27-2021 Metanephrine, Pl 22.1 pg/mL Normal 0.0-88.0 [facility] Comment on above: Performed By: #### [facility] #### [facility] [address] [place] [address] Dr. Manda York Normetanephrine, Pl 50.7 pg/mL Normal 0.0-218.9 [facility] Comment on above: Performed By: #### LEANN PATRICKC #### [facility] [address] [place] [address] Dr. Manda York CMV PLASMA PCRon 11-19-2021 CMV Quant DNA PCR (Plasma) Negative Normal Negative [facility] Comment on above: Result Comment: No C MV DNA detected. The quantitative range of this assay is 200 to 1 million IU/mL. Performed By: #### LEANN PATRICK #### [facility] [address] [place] [address] Dr. Manda York log10 CMV Qn DNA Pl UPTCAL Normal [facility] Comment on above: Result Comment: Unab le to calculate result since non-numeric result obtained for component test. Performed By: #### LEANN PATRICKC #### [facility] [address] [place] [address] Dr. Manda York CMV AB IGMon 11-18-2021 Cytomegalovirus (CMV) Ab, IgM 43.2 AU/mL Critically high 0.0-29.9 [facility] Comment on above: Result Comment: Nega tive <30.0 Equivocal 30.0 - 34.9 Positive >34.9 A positive result is generally indicative of acute infection, reactivation or persistent IgM production. Performed By: #### LEANN PATRICKC #### [facility] [address] [place] [address] Dr. Manda York CMV AB, IGGon 11-18-2021 Cytomegalovirus (CMV) Ab, IgG >10.00 Critically high 0.00-0.59 [facility] Comment on above: Result Comment: Nega tive <0.60 Equivocal 0.60 - 0.69 Positive >0.69 Performed By: #### C MVIGG #### [facility] [address] [place] [address] Dr. Manda York CBC AUTO DIFFon 11-17-2021 BASO # 0.1 103/ul Normal 0.0-0.1 [facility] Comment on above: Performed By: #### C BC #### [facility] [address] [place] [address] Dr. Manda York Basophils/100 WBC (Bld) 0.6 % Normal 0.2-2.0 [facility] Comment on above: Performed By: #### C BC #### [facility] [address] [place] [address] Dr. Manda York EO # 0.2 103/ul Normal 0.0-0.7 [facility] Comment on above: Performed By: #### C BC #### [facility] [address] [place] [address] Dr. Manda York Eosinophils/100 WBC (Bld) 2.3 % Normal 0.9-7.0 [facility] Comment on above: Performed By: #### C BC #### [facility] [address] [place] [address] Dr. Manda York Erythrocyte distribution width (RBC) [Ratio] 14.2 % Normal 11.0-15.0 [facility] Comment on above: Performed By: #### C BC #### [facility] [address] [place] [address] Dr. Manda York Hematocrit (Bld) [Volume fraction] 40.2 % Normal 36.0-48.0 [facility] Comment on above: Performed By: #### C BC #### [facility] [address] [place] [address] Dr. Manda York Hemoglobin (Bld) [Mass/Vol] 12.8 g/dL Normal 12.0-16.0 [facility] Comment on above: Performed By: #### C BC #### [facility] [address] [place] [address] Dr. Manda York IG # 0.02 10e3/ul Normal 0.00-0.03 [facility] Comment on above: Performed By: #### C BC #### [facility] [address] [place] [address] Dr. Manda York IG % 0.2 % Normal 0.0-0.5 [facility] Comment on above: Performed By: #### C BC #### [facility] [address] [place] [address] Dr. Manda York LYMPH # 2.5 103/ul Normal 1.2-3.8 [facility] Comment on above: Performed By: #### C BC #### [facility] [address] [place] [address] Dr. Manda York Lymphocytes/100 WBC (Bld) 24.9 % Normal 20.5-60.0 [facility] Comment on above: Performed By: #### C BC #### [facility] [address] [place] [address] Dr. Manda York MANUAL DIFF REQ NO Normal [facility] Comment on above: Performed By: #### C BC #### [facility] [address] [place] [address] Dr. Manda York MCH (RBC) [Entitic mass] 27.9 pg Normal 26.7-34.0 [facility] Comment on above: Performed By: #### C BC #### [facility] [address] [place] [address] Dr. Manda York MCHC (RBC) [Mass/Vol] 31.8 g/dL Normal 29.9-35.2 [facility] Comment on above: Performed By: #### C BC #### [facility] [address] [place] [address] Dr. Manda York MCV (RBC) [Entitic vol] 87.6 fL Normal 81.0-99.0 [facility] Comment on above: Performed By: #### C BC #### [facility] [address] [place] [address] Dr. Manda York MONO # 0.6 103/ul Normal 0.3-0.8 [facility] Comment on above: Performed By: #### C BC #### [facility] [address] [place] [address] Dr. Manda York Monocytes/100 WBC (Bld) 6.3 % Normal 1.7-12.0 [facility] Comment on above: Performed By: #### C BC #### [facility] [address] [place] [address] Dr. Manda York NEUT # 6.5 103/ul Normal 1.4-6.5 [facility] Comment on above: Performed By: #### C BC #### [facility] [address] [place] [address] Dr. Manda York Neutrophils/100 WBC (Bld) 65.7 % Normal 43.0-75.0 [facility] Comment on above: Performed By: #### C BC #### [facility] [address] [place] [address] Dr. Manda York Platelet mean volume (Bld) [Entitic vol] 10.1 fL Normal 9.5-13.5 [facility] Comment on above: Performed By: #### C BC #### [facility] [address] [place] [address] Dr. Manda York PLT 304 103/ul Normal 150-450 [facility] Comment on above: Performed By: #### C BC #### [facility] [address] [place] [address] Dr. Manda York RBC 4.59 106/ul Normal 4.20-5.40 [facility] Comment on above: Performed By: #### C BC #### [facility] [address] [place] [address] Dr. Manda York WBC 9.9 103/ul Normal 4.0-11.0 [facility] Comment on above: Performed By: #### C BC #### [facility] [address] [place] [address] Dr. Manda York PROF 14(COMP METB)on 022 Albumin [Mass/Vol] 3.7 g/dL Normal 3.4-5.0 [facility] Comment on above: Performed By: #### C BC #### [facility] [address] [place] [address] Dr. Manda York Albumin/Globulin [Mass ratio] 1.0 {ratio} Normal [facility] Comment on above: Performed By: #### C BC #### [facility] [address] [place] [address] Dr. Manda York ALP [Catalytic activity/Vol] 65 U/L Normal 46-116 [facility] Comment on above: Performed By: #### C BC #### [facility] [address] [place] [address] Dr. Manda York ALT [Catalytic activity/Vol] 35 U/L Normal 14-59 [facility] Comment on above: Performed By: #### C BC #### [facility] [address] [place] [address] Dr. Manda York Anion gap [Moles/Vol] 13.0 mmol/L Normal [facility] Comment on above: Performed By: #### C BC #### [facility] [address] [place] [address] Dr. Manda York AST [Catalytic activity/Vol] 12 U/L Critically low 15-37 [facility] Comment on above: Performed By: #### C BC #### [facility] [address] [place] [address] Dr. Manda York Bilirubin [Mass/Vol] 0.2 mg/dL Normal 0.2-1.0 [facility] Comment on above: Performed By: #### C BC #### [facility] [address] [place] [address] Dr. Manda York Calcium [Mass/Vol] 8.7 mg/dL Normal 8.5-10.1 [facility] Comment on above: Performed By: #### C BC #### [facility] [address] [place] [address] Dr. Manda York Chloride [Moles/Vol] 104 mmol/L Normal 98-107 [facility] Comment on above: Performed By: #### C BC #### [facility] [address] [address] [address] Manda York CO2 [Moles/Vol] 24.9 mmol/L Normal 21.0-32.0 [facility] Comment on above: Performed By: #### C BC #### [facility] [address] [place] [address] Dr. Manda York Creatinine [Mass/Vol] 0.77 mg/dL Normal 0.55-1.02 [facility] Comment on above: Performed By: #### C BC #### [facility] [address] [place] [address] Dr. Madna York EGFR-AF PRYDEINIG >=60 Normal >=60 [facility] Comment on above: Performed By: #### C BC #### [facility] [address] [place] [address] Dr. Manda York EGFR-NON AF PRYDEINIG >=60 Normal >=60 [facility] Comment on above: Performed By: #### C BC #### [facility] [address] [place] [address] Dr. Manda York Globulin (S) [Mass/Vol] 3.8 g/dL Normal [facility] Comment on above: Performed By: #### C BC #### [facility] [address] [place] [address] Dr. Manda York Glucose [Mass/Vol] 110 mg/dL Critically high 74-106 [facility] Comment on above: Performed By: #### C BC #### [facility] [address] [place] [address] Dr. Manda York Potassium [Moles/Vol] 3.9 mmol/L Normal 3.5-5.1 [facility] Comment on above: Performed By: #### C BC #### [facility] [address] [place] [address] Dr. Manda York Protein [Mass/Vol] 7.5 g/dL Normal 6.4-8.2 [facility] Comment on above: Performed By: #### C BC #### [facility] [address] [address] [address] Manda York Sodium [Moles/Vol] 138 mmol/L Normal 136-145 [facility] Comment on above: Performed By: #### C BC #### [facility] [address] [address] [address] Manda York Urea nitrogen [Mass/Vol] 17.0 mg/dL Normal 7.0-18.0 [facility] Comment on above: Performed By: #### C BC #### [facility] [address] [address] [address] Manda York Urea nitrogen/Creatinine [Mass ratio] 22.1 mg/mg Normal [facility] Comment on above: Performed By: #### C BC #### [facility] [address] [place] [address] Dr. Manda York SED RATE [facility] 2021 SED RATE 45 mm/hr Critically high <=20 [facility] Comment on above: Performed By: #### F T4 #### [facility] [address] [place] [address] Dr. Manda York CHRISTIAN EIA W/REFLEX 5 BIOMARKER Son 10-06-2021 CHRISTIAN Direct Positive Abnormal Negative [facility] Comment on above: Performed By: #### C BC #### [facility] [address] [place] [address] Dr. Manda York Anti-DNA (DS) Ab Qn 10 IU/mL Critically high 0-9 [facility] Comment on above: Result Comment: Nega tive <5 Equivocal 5 - 9 Positive >9 Performed By: #### C BC #### [facility] [address] [place] [address] Dr. Manda York LAYOUT TECHNICIAN Antibodies <0.2 Normal 0.0-0.9 [facility] Comment on above: Performed By: #### C BC #### [facility] [address] [place] [address] Dr. Manda York SEE BELOW: Comment Normal [facility] Comment on above: Result Comment: Auto [...] Sm (anti-Schneider) SLE 15 - 30% --------- LAYOUT TECHNICIAN Mixed Connective Tissue Disease 95% (U1 nRNP, SLE 30 - 50% anti-ribonucleoprotein) Polymyositis and/or Dermatomyositis 20% --------- Scl-70 (antiDNA Scleroderma (diffuse) 20 - 35% topoisomerase) Crest 13% --------- Felicita-1 Polymyositis and/or Dermatomyositis 20 - 40% --------- Centromere B Scleroderma - Crest variant 80% Performed By: #### C BC #### [facility] [address] [place] [address] Dr. Manda York Sjogryaniv'tye Anti-SS-A <0.2 Normal 0.0-0.9 [facility] Comment on above: Performed By: #### C BC #### [facility] [address] [place] [address] Dr. Manda York Sjogryaniv's Anti-SS-B <0.2 Normal 0.0-0.9 [facility] Comment on above: Performed By: #### C BC #### [facility] [address] [place] [address] Dr. Manda York Schneider Antibodies <0.2 Normal 0.0-0.9 [facility] Comment on above: Performed By: #### C BC #### [facility] [address] [place] [address] Dr. Manda York CMV PLASMA PCRon 10-06-2021 CMV Quant DNA PCR (Plasma) Negative Normal Negative [facility] Comment on above: Result Comment: No C MV DNA detected. The quantitative range of this assay is 200 to 1 million IU/mL. Performed By: #### C MVPL #### [facility] [address] [place] [address] Dr. Manda York log10 CMV Qn DNA Pl UPTCAL Normal [facility] Comment on above: Result Comment: Unab le to calculate result since non-numeric result obtained for component test. Performed By: #### C MVPL #### [facility] [address] [place] [address] Dr. Manda York CMV AB IGMon 2021 Cytomegalovirus (CMV) Ab, IgM 35.5 AU/mL Critically high 0.0-29.9 [facility] Comment on above: Result Comment: Nega tive <30.0 Equivocal 30.0 - 34.9 Positive >34.9 A positive result is generally indicative of acute infection, reactivation or persistent IgM production. Performed By: #### S LUIGI MELO #### [facility] [address] [place] [address] Dr. Manda York CMV AB, IGGon 2021 Cytomegalovirus (CMV) Ab, IgG 6.30 U/mL Critically high 0.00-0.59 [facility] Comment on above: Result Comment: Nega tive <0.60 Equivocal 0.60 - 0.69 Positive >0.69 Performed By: #### S LUIGI MELO #### [facility] [address] [place] [address] Dr. Manda York CBC AUTO DIFFon 10-03-2021 BASO # 0.1 103/ul Normal 0.0-0.1 [facility] Comment on above: Performed By: #### C BC #### [facility] [address] [place] [address] Dr. Manda York Basophils/100 WBC (Bld) 0.7 % Normal 0.2-2.0 [facility] Comment on above: Performed By: #### C BC #### [facility] [address] [place] [address] Dr. Manda York EO # 0.2 103/ul Normal 0.0-0.7 [facility] Comment on above: Performed By: #### C BC #### [facility] [address] [place] [address] Dr. Manda York Eosinophils/100 WBC (Bld) 2.0 % Normal 0.9-7.0 [facility] Comment on above: Performed By: #### C BC #### [facility] [address] [place] [address] Dr. Manda York Erythrocyte distribution width (RBC) [Ratio] 14.4 % Normal 11.0-15.0 [facility] Comment on above: Performed By: #### C BC #### [facility] [address] [place] [address] Dr. Manda York Hematocrit (Bld) [Volume fraction] 37.2 % Normal 36.0-48.0 [facility] Comment on above: Performed By: #### C BC #### [facility] [address] [place] [address] Dr. Manda York Hemoglobin (Bld) [Mass/Vol] 12.3 g/dL Normal 12.0-16.0 [facility] Comment on above: Performed By: #### C BC #### [facility] [address] [place] [address] Dr. Manda York IG # 0.02 10e3/ul Normal 0.00-0.03 [facility] Comment on above: Performed By: #### C BC #### [facility] [address] [place] [address] Dr. Manda York IG % 0.2 % Normal 0.0-0.5 [facility] Comment on above: Performed By: #### C BC #### [facility] [address] [place] [address] Dr. Manda York LYMPH # 2.1 103/ul Normal 1.2-3.8 [facility] Comment on above: Performed By: #### C BC #### [facility] [address] [place] [address] Dr. Manda York Lymphocytes/100 WBC (Bld) 26.4 % Normal 20.5-60.0 [facility] Comment on above: Performed By: #### C BC #### [facility] [address] [place] [address] Dr. Manda York MANUAL DIFF REQ NO Normal [facility] Comment on above: Performed By: #### C BC #### [facility] [address] [place] [address] Dr. Manda York MCH (RBC) [Entitic mass] 29.2 pg Normal 26.7-34.0 [facility] Comment on above: Performed By: #### C BC #### [facility] [address] [place] [address] Dr. Manda York MCHC (RBC) [Mass/Vol] 33.1 g/dL Normal 29.9-35.2 [facility] Comment on above: Performed By: #### C BC #### [facility] [address] [place] [address] Dr. Manda York MCV (RBC) [Entitic vol] 88.4 fL Normal 81.0-99.0 [facility] Comment on above: Performed By: #### C BC #### [facility] [address] [place] [address] Dr. Manda York MONO # 0.5 103/ul Normal 0.3-0.8 [facility] Comment on above: Performed By: #### C BC #### [facility] [address] [place] [address] Dr. Manda York Monocytes/100 WBC (Bld) 6.7 % Normal 1.7-12.0 [facility] Comment on above: Performed By: #### C BC #### [facility] [address] [place] [address] Dr. Manda York NEUT # 5.2 103/ul Normal 1.4-6.5 [facility] Comment on above: Performed By: #### C BC #### [facility] [address] [place] [address] Dr. Manda York Neutrophils/100 WBC (Bld) 64.0 % Normal 43.0-75.0 [facility] Comment on above: Performed By: #### C BC #### [facility] [address] [place] [address] Dr. Manda York Platelet mean volume (Bld) [Entitic vol] 10.5 fL Normal 9.5-13.5 [facility] Comment on above: Performed By: #### C BC #### [facility] [address] [place] [address] Dr. Manda York PLT 265 103/ul Normal 150-450 [facility] Comment on above: Performed By: #### C BC #### [facility] [address] [place] [address] Dr. Manda York RBC 4.21 106/ul Normal 4.20-5.40 [facility] Comment on above: Performed By: #### C BC #### [facility] [address] [place] [address] Dr. Manda York WBC 8.1 103/ul Normal 4.0-11.0 [facility] Comment on above: Performed By: #### C BC #### [facility] [address] [place] [address] Dr. Manda York CRPon 10-03-2021 CRP [Mass/Vol] mg/L Normal <=1.0 [facility] Comment on above: Performed By: #### F T4 #### [facility] [address] [place] [address] Dr. Manda York SED RATE [facility] 2021 SED RATE 34 mm/hr Critically high <=20 [facility] Comment on above: Performed By: #### C BC #### [facility] [address] [place] [address] Dr. Manda York CHLORIDE (POC)Ordered By: Jae Holley on 10-07-2020 Chloride [Moles/Vol] 106 mmol/L 98 - 10 7 mmol/L [employer] Phone: Catheterization and angiogra phy procedure details panelOrdered By: Jaren Holley on 10-07-2020 Cardiac Diagnostic R eport Demographics Patient TERA Torres Date of Study 10/07/2020 Name Date of 1980 Gender Female Age 40 year(s) Race Room [id number]^LEYDI^JAREN Height: 67 inch, 170.18 cm Number Corporate [id number] Weight: 234 pounds, 106.1 kg ID # Patient [id number] BSA: 2.16 m^2 BMI: 36.65 kg/m^2 Acct # MR # [id number] Performing Jaren Holley Physician Referring # Physician [...] Right coronary angiography. Contrast Material: - Isovue 60870 ml Fluoroscopy Time: Diagnostic: 2:12 minutes. Total: [...] assessed as CCS II according to the Crenshaw clinical classification. Hemodynamics Condition: Baseline Room Air Estimated: 246.52Heart Rate: 103 bpm Pressure +-----+ + !Site !Pressure ! +-----+ + !AO !106/ (86) ! +-----+ + !AO !104/ (87) ! +-----+ + !AO !112/ (86) ! +-----+ + !LV !126/0 ,1 ! +-----+ + !LV !126/0 ,5 ! +-----+ + Valve Gradients and Areas + +---------+---- -----+---------+ + ---------+ + !Valve !Peak !Mean !Area !Index !Flow !Source ! + +---------+---- -----+---------+ + ---------+ + !Aortic (more content not included)... [employer] Phone: Jr, pn Incoming C ardio Results From [facility]/ - 10/07/2020 10:37 AM EDT Cardiac Diagnostic Report Demographics Patient TERA Torres Date of Study 10/07/2020 Name Date of 1980 Gender Female Age 40 year(s) Race Room [id number]^LEYDI^JAREN Height: 67 inch, 170.18 cm Number Corporate [id number] Weight: 234 pounds, 106.1 kg ID # Patient [id number] BSA: 2.16 m^2 BMI: 36.65 kg/m^2 Acct # MR # [id number] Performing Jaren Holley Physician Referring # Physician [...] Right coronary angiography. Contrast Material: - Isovue 62426 ml Fluoroscopy Time: Diagnostic: 2:12 minutes. Total: [...] assessed as CCS II according to the Crenshaw clinical classification. Hemodynamics Condition: Baseline Room Air [...] + ---------+ + Shunts Oxygen Values O2 [id number] [employer] Phone: [employer] Phone: [employer] Phone: Creatinine W/GFR Point of Ca reOrdered By: Jaren Holley on 10-07-2020 Creatinine [Mass/Vol] 0.64 mg/dL 0.51 - 1.19 mg/dL [employer] Phone: GFR Non- >60 >60 mL/min [employer] Phone: GFR/1.73 sq M.predicted MDRD (S/P/Bld) [Vol rate/Area] mL/min/{1.73_m2} >60 mL/min [employer] Phone: GFR/1.73 sq M.predicted MDRD (S/P/Bld) [Vol rate/Area] [employer] Phone: Comment on above: Average GFR for 40-4 9 years old: 99 mL/min/1.73sq m Chronic Kidney Disease: <60 mL/min/1.73sq m Kidney failure: <15 mL/min/1.73sq m eGFR calculated using average adult body mass. Additional eGFR calculator available at: http://www.[employer]/MailMeNetwork_crcl_2011.htm Hemoglobin and hematocrit, b loodOrdered By: Jaren Holley on 10-07-2020 Hematocrit (Bld) [Volume fraction] 41 % 36 - 46 % [employer] Phone: Hemoglobin (Bld) [Mass/Vol] 14.0 g/dL 12.0 - 16.0 g/dL [employer] Phone: No Panel InformationOrdered By: Jaren Holley on 10-07-2020 [employer] Phone: POCT GlucoseOrdered By: Anu Holley on 10-07-2020 Glucose [Mass/Vol] 98 mg/dL 74 - 100 mg/dL [employer] Phone: POCT urine pregnancyOrdered By: Jaren Holley on 10-07-2020 Beta HCG ( test) Ql (U) Negative NEGATIVE [employer] Phone: Comment on above: Specimens with hCG l evels near the threshold of the test (25 mIU/mL) may give a negative or indeterminate result. In such cases, another test should be performed with a new specimen in 48-72 hours. If early is suspected clinically in this setting, correlation with quantitative serum b-hCG level is suggested. [employer] Phone: POTASSIUM (POC)Ordered By: Al Holley on 10-07-2020 Potassium [Moles/Vol] 3.8 mmol/L 3.5 - 4.5 mmol/L [employer] Phone: Platelet Counton 10-07-2020 Platelets (Bld) [#/Vol] 299 10*3/uL Normal 138-453 [facility] Comment on above: Performed By: #### P LT #### [employer] [address] [place] [address] Trade Show Specialist: Rick Serrano MD Platelet countOrdered By: Jae Holley on 10-07-2020 Platelets (Bld) [#/Vol] 299 10*3/uL [employer] Phone: [employer] Phone: SODIUM (POC)Ordered By: Anu Holley on 10-07-2020 Sodium [Moles/Vol] 141 mmol/L 138 - 146 mmol/L [employer] Phone: Coding Summary.on 01-12-2019 Coding Summary. CODING DATE: 019 FINAL [facility] STATUS: Home (Routine DC) PAYOR: Medicaid EAPG [...] mass index (BMI) 34.0-34.9, adult Z79.899 Other course instructor (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 However, the narrative phrase printed from the coding software may appear abbreviated, or result in slightly different terminology. Coded By: Luz Judd Date Saved: 01/12/2019 10:25 am Normal [facility] Coding Summary. CODING DATE: 019 FINAL [facility] STATUS: Home (Routine DC) PAYOR: Medicaid EA [...] mass index (BMI) 34.0-34.9, adult Z79.899 [facility] [place] (current) drug therapy PYMT PROC EA STAT DESCRIPTION DOCTOR NAME DATE NOTE: The code number assigned matches the documented diagnosis and / or procedure in the patient's chart. However, the narrative phrase printed from the coding software may appear abbreviated, or result in slightly different terminology. Revised Coded By: Luz Judd Revised Date Saved: 01/12/2019 10:25 am Normal [facility] XR Chest 2 Viewson 9 XR Chest [...] M.D. Transcribed by: BILL Technologist: ZOILA Normal [facility] Auto Diffon 01-11-2019 Basophils/100 WBC (Bld) 0.8 % Normal 0.0-2.0 [facility] Comment on above: Order Comment: Order Added by Discern Expert. Performed By: #### 1 [id number], [id number], [id number], [id number], 6585521, 1478859, 9880760, 5313160, [id number], [id number] #### [facility] [address] [place] [address] Basophils/Leukocytes Auto (Bld) [Pure # fraction] 0.1 E9/L Normal 0.0-0.2 [facility] Comment on above: Order Comment: Order Added by Discern Expert. Performed By: #### 1 [id number], [id number], 2517505, [id number], 4043207, 7790067, 6801035, 3419525, [id number], [id number] #### [facility] [address] [place] [address] Eosinophils/100 WBC (Bld) 1.9 % Normal 0.0-8.0 [facility] Comment on above: Order Comment: Order Added by Discern Expert. Performed By: #### 1 [id number], 7862038, 1691142, [id number], 3210560, 2574274, 6559340, 9362584, 04589612, [id number] #### [facility] [address] [place] [address] Eosinophils/Leukocyt es Auto (Bld) [Pure # fraction] 0.1 E9/L Normal 0.0-0.5 [facility] Comment on above: Order Comment: Order Added by Discern Expert. Performed By: #### 1 [id number] [id number], 9818700, 5671106, [id number], 1625529, 2763128, 7369582, 9949750, [id number], 0913715 #### [facility] [address] [place] [address] Lymphocytes/100 WBC (Bld) 28.0 % Normal 14.0-50.0 [facility] Comment on above: Order Comment: Order Added by Discern Expert. Performed By: #### 1 [id number], [id number], 1858464, [id number], [id number], 4889948, 1834348, 9361026, 8501729, 44812021, 2590124 #### [facility] [facility] [address] [place] [address] Lymphocytes/Leukocyt es Auto (Bld) [Pure # fraction] 2.2 E9/L Normal 1.0-4.0 [facility] Comment on above: Order Comment: Order Added by Discern Expert. Performed By: #### 1 9145922, 5389113, 0614963, 4031112, 32936224, 8928951, 6689684, 4694152, 0897814, 57446761, 1320157 #### [facility] [address] [place] [address] Monocytes/100 WBC (Bld) 7.0 % Normal 4.0-14.0 [facility] Comment on above: Order Comment: Order Added by Discern Expert. Performed By: #### 1 5151323, 7316189, 1676352, 4261946, 22550220, 0837164, 7015490, 8345670, 0342888, 84038236, 8024055 #### [facility] [address] [place] [address] Monocytes/Leukocytes Auto (Bld) [Pure # fraction] 0.6 E9/L Normal 0.2-1.0 [facility] Comment on above: Order Comment: Order Added by Discern Expert. Performed By: #### 1 3352101, 0380581, 5229465, 9222323, 62337191, 3166543, 6570911, 3313532, 0532987, 74090455, 4601465 #### [facility] [address] [place] [address] Neutrophils/100 WBC (Bld) 62.3 % Normal 36.0-75.0 [facility] Comment on above: Order Comment: Order Added by Discern Expert. Performed By: #### 1 0989340, 7713246, 4887373, 7102770, 34308044, 0576702, 8589130, 0163675, 3663297, 77486336, 9801877 #### [facility] [address] [place] [address] Neutrophils/Leukocyt es Auto (Bld) [Pure # fraction] 4.9 E9/L Normal 2.0-7.5 [facility] Comment on above: Order Comment: Order Added by Discern Expert. Performed By: #### 1 3951755, 1613112, 0959448, 6449677, 01882716, 6874367, 3370189, 3878403, 8473360, 22359775, 2810376 #### [facility] [address] [place] [address] BMPon 01-11-2019 Creatinine [Mass/Vol] 0.7 mg/dL Normal 0.5-1.3 [facility] Comment on above: Performed By: #### 1 3469533, 9895547, 6550073, 3809683, 20851714, 0069482, 7536756, 7250186, 3419175, 41057635, 6935387 #### [facility] [address] [place] [address] Urea nitrogen [Mass/Vol] 11 mg/dL Normal - [facility] Comment on above: Performed By: #### 1 3914027, 1778721, 3803048, 4391534, 38809827, 6121135, 8268205, 3849051, 8142322, 33641176, 5759639 #### [facility] [address] [place] [address] Urea nitrogen/Creatinine [Mass ratio] 16 No Units Normal 10-20 [facility] Comment on above: Performed By: #### 1 6226538, 9844834, 9439565, 7629277, 44184058, 3740734, 9497098, 2322500, 1565627, 15681676, 9791543 #### [facility] [address] [place] [address] Anion gap [Moles/Vol] 14 mmol/L Normal 6-16 [facility] Comment on above: Performed By: #### 1 4462293, 0519961, 2225557, 8772463, 01490896, 6204155, 0643600, 2601777, 6577615, 64053041, 5898481 #### [facility] [address] [place] [address] Calcium [Mass/Vol] 8.9 mg/dL Normal 8.9-11.1 [facility] Comment on above: Performed By: #### 1 1039328, 0428069, 9405779, 9876916, 21623618, 9170804, 5708468, 6616656, 9759365, 95765187, 2288454 #### [facility] [address] [place] [address] Chloride [Moles/Vol] 107 mmol/L Normal 101-111 [facility] Comment on above: Performed By: #### 1 8187848, 6485603, 2341579, 5551972, 87682888, 8654747, 9021038, 7238380, 1568427, 53427313, 2986469 #### [facility] [address] [place] [address] CO2 [Moles/Vol] 22 mmol/L Normal 21-31 [facility] Comment on above: Performed By: #### 1 3099376, 1449388, 6594192, 9308478, 65151554, 9048306, 6063942, 9266605, 0827470, 56714050, 1229911 #### [facility] [address] [place] [address] Glucose [Mass/Vol] 122 mg/dL Normal 55-199 [facility] Comment on above: Result Comment: If t his glucose result represents a fasting glucose, interpretation should refer to the following reference range: 55-99 mg/dL Performed By: #### 1 0749292, 0991938, 4800922, 8563302, 98503873, 7192699, 0079099, 3318212, 1264088, 48783116, 9004447 #### [facility] [address] [place] [address] Potassium [Moles/Vol] 3.8 mmol/L Normal 3.5-5.3 [facility] Comment on above: Performed By: #### 1 2307866, 6105031, 8232096, 4573726, 54726982, 0028020, 2113805, 4908781, 6005613, 98787729, 2657208 #### [facility] [address] [place] [address] Sodium [Moles/Vol] 139 mmol/L Normal 135-145 [facility] Comment on above: Performed By: #### 1 6311937, 0280472, 5398197, 6524755, 90604324, 2743938, 8522838, 6595748, 0914045, 94499473, 7627210 #### [facility] [address] [place] [address] CBC w/ Auto Diffon 9 Erythrocyte distribution width (RBC) [Ratio] 14.0 % Normal 10.9-14.2 [facility] Comment on above: Performed By: #### 1 3529522, 0655024, 8701387, 1598763, 57378043, 6170154, 3955749, 2624858, 1900628, 59395239, 0043415 #### [facility] [address] [place] [address] Hematocrit (Bld) [Volume fraction] 39.9 % Normal 34.0-46.0 [facility] Comment on above: Performed By: #### 1 7516952, 3541957, 8378013, 6632659, 10113814, 1893321, 1210778, 5962498, 9271571, 44298049, 4290277 #### [facility] [address] [place] [address] Hemoglobin (Bld) [Mass/Vol] 13.5 g/dL Normal 12.0-16.0 [facility] Comment on above: Performed By: #### 1 3376353, 9709386, 9242032, 6864966, 57524022, 8921192, 9892930, 5180923, 4438774, 54840945, 3587728 #### [facility] [address] [place] [address] MCH (RBC) [Entitic mass] 29.4 pg Normal 27.0-34.0 [facility] Comment on above: Performed By: #### 1 5116001, 2245930, 1809140, 3914989, 77191040, 9785652, 8725052, 3278456, 8408104, 78523013, 1066908 #### [facility] [address] [place] [address] MCHC (RBC) [Mass/Vol] 33.7 g/dL Normal 33.3-35.7 [facility] Comment on above: Performed By: #### 1 4518739, 8378399, 3663130, 0069394, 65271416, 3919319, 8440668, 8242497, 8924526, 17481226, 2264453 #### [facility] [address] [place] [address] MCV (RBC) [Entitic vol] 87.4 fL Normal 80.0-100.0 [facility] Comment on above: Performed By: #### 1 1097141, 9092653, 9045781, 3555451, 68200686, 6097892, 3058047, 7864512, 3497353, 36588239, 9865161 #### [facility] [address] [place] [address] Platelet mean volume (Bld) [Entitic vol] 8.5 fL Normal 6.4-10.8 [facility] Comment on above: Performed By: #### 1 8517821, 2682215, 9169603, 6808935, 05847711, 7990671, 5306451, 8718298, 8166151, 62761217, 7853367 #### [facility] [address] [place] [address] Platelets (Bld) [#/Vol] 244.0 E9/L Normal 150.0-500.0 [facility] Comment on above: Performed By: #### 1 9366481, 1436373, 0207203, 8439327, 77690475, 2544148, 4210283, 1433680, 0319763, 01755270, 0871632 #### [facility] [address] [place] [address] RBC (Bld) [#/Vol] 4.6 E12/L Normal 4.3-5.9 [facility] Comment on above: Performed By: #### 1 9791227, 1749895, 8671091, 7970586, 18139284, 9805564, 2321864, 8657186, 3007288, 76922875, 6661383 #### [facility] [address] [place] [address] WBC corrected for nucl RBC Auto (Bld) [#/Vol] 7.9 E9/L Normal 4.0-11.0 [facility] Comment on above: Performed By: #### 1 7200555, 3311876, 4106415, 2089336, 94209562, 0276640, 9160741, 1995847, 0197546, 76054639, 7092437 #### [facility] [address] [place] [address] D-Dimeron 01-11-2019 Fibrin D-dimer FEU (PPP) [Mass/Vol] 265 ng/mL Normal 215-500 [facility] Comment on above: Result Comment: This D-Dimer [...] infections Liver cirrhosis Performed By: #### 1 2446368, 1952003, 0724485, 4901744, 08322113, 9734446, 9331689, 0375998, 8139825, 71964283, 0889770 #### [facility] [address] [place] [address] ED Clinical Summaryon 2018 ED Clinical Summary (Inserted Image. Melissa ble to display) [address] [id number] ED Clinical Summary Person Information Name: JONES HALEY [place] Age: 38 Years : 1980 12:00 AM Sex: Female Language: Monegasque PCP: Charles Mitchell DO Marital Status: Single Phone: [phone] Visit Id: Visit Reason: Chest pain; CHEST [...] 6:42 PM 01/11/2019 6:42 PM ADDRESS: [address] [place] [id number] [facility] DOC NOTES: MEDICAL INFORMATION: Prescriptions Given: PATIENT EDUCATION INFORMATION: Instructions: Smoking Cessation; Chest Pain (Nonspecific) Follow up: With: Address: When: [place] [phone] Business (1) Within 2 to 3 days Comments: Return to ED if symptoms worsen DIAGNOSIS: 1:Chest pain Normal [facility] ED Note-Physicianon 01-12-20 ED Note-Physician Basic Information [...] Charles Mitchell Within 2 to 3 days [address] [place] [address]- Business (1) Additional Instructions: Return to ED [...] Lymph Auto: 28 % (01/11/19 16:46:00 EDT) Sibley Auto: 7 % (01/11/19 16:46:00 EDT) Eos Auto: 1.9 % (01/11/19 16:46:00 EDT) Basophil Auto: 0.8 % (01/11/19 16:46:00 EDT) Neutro Absolute: 4.9 E9/L (01/11/19 16:46:00 EDT) Lymph Absolute: 2.2 E9/L (01/11/19 16:46:00 EDT) Sibley Absolute: 0.6 E9/L (01/11/19 16:46:00 EDT) Eos [...] Results EC01/11/19: SINUS RHYTHM RATE 84, NORMAL MI AND QRS, NO ST ELEVATION OR DEPRSSION, NORMAL AXIS, NORMAL QTC NORMAL ECG Signed By: Orin Browne DO 01/11/2019 15:54:18 Normal [facility] Comment on above: Result Comment: Elec tronically [...] and skin patches. Some may be available rmtj-svo-zdspuqi and others require a prescription. ? Antidepressant [...] Document Reviewed: 08/18/2012 ExitCare? Patient Information ?2015 [employer]. This information is not intended to replace [...] Document Reviewed: 12/13/2008 ExitCare? Patient Information ?2015 [employer]. This information is not intended to replace advice given to you by your health care provider. Make sure you discuss any questions you have with your health care provider. Normal [facility] ED Patient Summaryon 019 ED Patient Summary (Inserted Image. Melissa ble to display) [place] [id number] Patient Discharge Instructions Person Information Name: JONES HALEY Age: 38 Years Arrival Date: 01/11/2019 3:44 PM Discharge Diagnosis: 1:Chest pain Primary Care Physician: Charles Mitchell DO Provider Information Primary Provider: Orin Browne DO Advanced Community Arts Worker:None The exam and treatment you received in the Emergency Department were for an urgent problem and are not intended as complete care. It is important that you follow up with a doctor, nurse practitioner, or physician?s real estate assistant for ongoing care. If your symptoms [...] Follow-up Instructions: With: Address: When: Charles Mitchell [address] [place] [address] Business (1) Within 2 to 3 days [...] opioids can be used to help relieve mzaevaqz-mk-hpokgn pain and are often prescribed following a [...] struggling with addiction, tell your health healthcare administration internship and ask for guidance or call SAMHSA?S National Helpline at 3-054-092-MGYD. l Source: [place] Department of Health and Human Services/Center for Disease Control & Prevention [facility] Medications Given: Medication Dose Route No medications found. Medication Information: Medications to Continue with No Changes Other Medications metformin (metformin 500 mg ER Tab) 250 Milligram By Mouth 2 times a day. Comment: Pharmacy Information: Thank you for choosing [facility] Patient Education Materials: Smoking Cessation Quitting [...] and skin patches. Some may be available gdlo-yax-mhhzfcy and others require a prescription. ? Antidepressant [...] Document Reviewed: 08/18/2012 ExitCare? Patient Information ?2014 [employer] [facility]. This information is not intended to [...] Document Reviewed: 12/13/2008 ExitCare? Patient Information ?2015 [employer]. This information is not intended to replace advice given to you by your health care provider. Make sure you discuss any questions you have with your health care provider. TERA Dorantes NICOLE B , have received the following patient education materials/instructions and have verbalized understanding: Patient Education Materials: Smoking Cessation; Chest Pain (Nonspecific) Follow-up Instructions: With: Address: When: Charles Mitchell [address] [place], [place] [phone] Business (1) Within 2 to 3 days Comments: Return to ED if symptoms worsen Prescriptions: Patient Signature Date Clinician/Nurse Signature Date 01/11/19 18:42:28 Normal [facility] Progress Note-Nurseon 2018 Progress Note-Nurse Pt explained dischar ge instructions and voiced understanding. Pt sts she will follow up with her PCP and denies any furthe questions at this time. Normal [facility] Troponin 0 Hr.on 01-11-2019 Troponin I.cardiac [Mass/Vol] ng/mL Normal <=0.03 [facility] Comment on above: Result Comment: New Troponin Assay 10/05/13 [facility] Cutoff value > or = 0.03 ng/mL in conjunction with clinical conditions of myocardial infarction. (www.escardio.org/guidelines) Performed By: #### 1 4784723, 3837874, 5131934, 6579906, 30799093, 2842504, 1266733, 2910282, 8683934, 67020676, 5397531 #### [facility] [address] [place] [address] eGFRon 01-11-2019 GFR/1.73 sq M predicted among blacks MDRD (S/P/Bld) [Vol rate/Area] mL/min/{1.73_m2} Normal >=59 [facility] Comment on above: Order Comment: Order added by Discern Expert. Result Comment: eGFR is race adjusted. AA=. Performed By: #### 1 4021205, 5367346, 1218704, 6435045, 55074020, 6012256, 1839654, 4295613, 5230140, 68458344, 3000264 #### [facility] [address] [place] [address] GFR/1.73 sq M predicted among non-blacks MDRD (S/P/Bld) [Vol rate/Area] mL/min/{1.73_m2} Normal >=59 [facility] Comment on above: Order Comment: Order added by Discern Expert. Result Comment: [employer] Professor anthony kidney disease could be indicated at eGFR's of less than 60 mL/min/1.73m2. Kidney failure is indicated at less than 15 mL/min/1.73m2. Performed By: #### 1 7105498, 4099659, 3001154, 1745987, 21766034, 3170134, 8568941, 5551225, 3873634, 14462080, 4559212 #### [facility] [address] [place] [address] SPINE, LUMBOSACRAL CMPLT(TOOTIE DING)on 12-05-2018 SPINE, LUMBOSACRAL CMPLT(BENDING) Patient Name: JONES HALEY STUDY: SPINE, LUMBOSACRAL; CMPLT(BENDING); 12/05/2018 1:47 pm INDICATION: LUMBAR XR. COMPARISON: None. ACCESSION NUMBER(S): [id number] ORDERING CLINICIAN: JUAN LUIS RICHARDSON FINDINGS: No lumbar spine fracture. Scattered small endplate osteophytes. Vertebral body and disc space heights are are maintained. 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 No spondylolisthesis. No instability on flexion or extension. IMPRESSION: Degenerative changes of the lumbar spine without instability. Electronically signed by: EARNESTINE MANUEL MD [facility] XR chest 2V*on 09-17-2018 XR chest 2V* [facility] [place] [address] [place] [address] XRay Report Signed Patient: Jones Haley MR#: [id number] : 1980 Acct:[id number] Age/Sex: 37 / F ADM Date: 09/17/18 Loc: XDUCLY Room: Type: [facility] Attending Dr: Bettina COREAS Ordering Provider: [...] Simin Nelson M.D.09/17/2018 2:04 PM Dictation Location: [facility] Transcribed By: [facility] 09/17/18 1404 Dictated By: Simin Nelson MD 09/17/18 1403 Signed By: 09/17/18 1404 [facility] Coding Summary.on 09-15-2018 Coding Summary. CODING DATE: 019 [facility] STATUS: Home (Routine DC) PAYOR: Medicaid EAPG [...] F17.210 Nicotine dependence, cigarettes, uncomplicated Z79.899 Other course instructor (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 However, the narrative phrase printed from the coding software may appear abbreviated, or result in slightly different terminology. Coded By: Luz Judd Date Saved: 09/15/2018 07:15 am Normal [facility] Auto Diffon 09-14-2018 Basophils/100 WBC (Bld) 0.6 % Normal 0.0-2.0 [facility] Comment on above: Order Comment: Order Added by Discern Expert. Performed By: #### 1 5844236, 3527559, 4856722, 5766269, 98811776, 1217842, 1654498, 0787258, 3227008, 76840389, 5894562 #### [facility] [address] [place] [address] Basophils/Leukocytes Auto (Bld) [Pure # fraction] 0.1 E9/L Normal 0.0-0.2 [facility] Comment on above: Order Comment: Order Added by Discern Expert. Performed By: #### 1 3316696, 7694403, 0298190, 9558156, 19147859, 9428500, 5972406, 1706537, 6150716, 37061395, 3692696 #### [facility] [address] [place] [address] Eosinophils/100 WBC (Bld) 2.2 % Normal 0.0-8.0 [facility] Comment on above: Order Comment: Order Added by Discern Expert. Performed By: #### 1 1325626, 1522703, 2276017, 3457931, 14728677, 3593189, 4209851, 1131561, 4521271, 47127207, 3107361 #### [facility] [address] [place] [address] Eosinophils/Leukocyt es Auto (Bld) [Pure # fraction] 0.2 E9/L Normal 0.0-0.5 [facility] Comment on above: Order Comment: Order Added by Discern Expert. Performed By: #### 1 5420638, 5248848, 9924050, 5638936, 29937902, 4707137, 3510364, 1192278, 7087225, 41764074, 0104024 #### [facility] [address] [place] [address] Lymphocytes/100 WBC (Bld) 30.6 % Normal 14.0-50.0 [facility] Comment on above: Order Comment: Order Added by Discern Expert. Performed By: #### 1 6690134, 8096777, 0581798, 6045764, 16751772, 3317555, 8215101, 9470016, 3327473, 59855528, 2024248 #### [facility] [address] [place] [address] Lymphocytes/Leukocyt es Auto (Bld) [Pure # fraction] 3.0 E9/L Normal 1.0-4.0 [facility] Comment on above: Order Comment: Order Added by Discern Expert. Performed By: #### 1 7097134, 6155809, 3703163, 5923990, 67803384, 5818966, 7293259, 0982091, 7010827, 32848895, 5377664 #### [facility] [address] [place] [address] Monocytes/100 WBC (Bld) 7.2 % Normal 4.0-14.0 [facility] Comment on above: Order Comment: Order Added by Discern Expert. Performed By: #### 1 8654965, 9553796, 2910793, 1219278, 70863437, 0602177, 9127100, 7848080, 3671010, 56031099, 1508372 #### [facility] [address] [place] [address] Monocytes/Leukocytes Auto (Bld) [Pure # fraction] 0.7 E9/L Normal 0.2-1.0 [facility] Comment on above: Order Comment: Order Added by Discern Expert. Performed By: #### 1 1789073, 8965577, 1374172, 6141346, 95469500, 0551262, 4329480, 8115428, 7003414, 70001908, 3403772 #### [facility] [address] [place] [address] Neutrophils/100 WBC (Bld) 59.4 % Normal 36.0-75.0 [facility] Comment on above: Order Comment: Order Added by Discern Expert. Performed By: #### 1 8909819, 5167396, 9679661, 5246554, 71695038, 3679392, 6518522, 5192811, 1260793, 02419401, 4438129 #### [facility] [address] [place] [address] Neutrophils/Leukocyt es Auto (Bld) [Pure # fraction] 5.9 E9/L Normal 2.0-7.5 [facility] Comment on above: Order Comment: Order Added by Discern Expert. Performed By: #### 1 2634434, 5642861, 5888209, 8333352, 76526303, 5811079, 5412172, 0919070, 6058774, 86930597, 1732637 #### [facility] [address] [place] [address] BMPon 09-14-2018 Creatinine [Mass/Vol] 0.6 mg/dL Normal 0.5-1.3 [facility] Comment on above: Performed By: #### 1 6067248, 9771155, 4523439, 6146877, 23581298, 6545130, 4204424, 1646639, 7127980, 41960236, 6459746 #### [facility] [address] [place] [address] Urea nitrogen [Mass/Vol] 15 mg/dL Normal 5-21 [facility] Comment on above: Performed By: #### 1 8011343, 3024384, 0000868, 6630678, 33544897, 4203379, 7962323, 8939287, 4332357, 68050667, 8062843 #### [facility] [address] [place] [address] Urea nitrogen/Creatinine [Mass ratio] 25 No Units High 10-20 [facility] Comment on above: Performed By: #### 1 0021742, 0470133, 4480897, 9179760, 55115576, 1117220, 6687875, 3687242, 3959992, 51331450, 8157829 #### [facility] [address] [place] [address] Anion gap [Moles/Vol] 13 mmol/L Normal 6-16 [facility] Comment on above: Performed By: #### 1 1411179, 5956067, 0205323, 0993349, 62353089, 6192517, 3976130, 5397765, 7462129, 67150058, 8291125 #### [facility] [address] [place] [address] Calcium [Mass/Vol] 9.5 mg/dL Normal 8.9-11.1 [facility] Comment on above: Performed By: #### 1 4520452, 9121732, 0920432, 4380011, 71951982, 5896364, 3772099, 7005342, 4813486, 28745193, 4431260 #### [facility] [address] [place] [address] Chloride [Moles/Vol] 103 mmol/L Normal 101-111 [facility] Comment on above: Performed By: #### 1 7170778, 3667703, 9821493, 2960870, 88627953, 4591336, 2599322, 0428414, 6081551, 53911459, 5326883 #### [facility] [address] [place] [address] CO2 [Moles/Vol] 24 mmol/L Normal 21-31 [facility] Comment on above: Performed By: #### 1 5568409, 5013841, 0558469, 3366652, 39904531, 6997266, 5139870, 7444469, 0380328, 10179266, 6959275 #### [facility] [address] [place] [address] Glucose [Mass/Vol] 102 mg/dL Normal 55-199 [facility] Comment on above: Result Comment: If t his glucose result represents a fasting glucose, interpretation should refer to the following reference range: 55-99 mg/dL Performed By: #### 1 3129974, 1871971, 9736654, 4383793, 63605151, 0179684, 1657751, 9404888, 4859527, 37012349, 3645865 #### [facility] Laboratory [address] [place] [address] Potassium [Moles/Vol] 3.6 mmol/L Normal 3.5-5.3 [facility] Comment on above: Performed By: #### 1 5191975, 7763570, 9859177, 4432246, 50345870, 8049369, 1385173, 3582724, 6669698, 03688494, 4971998 #### [facility] [address] [place] [address] Sodium [Moles/Vol] 136 mmol/L Normal 135-145 [facility] Comment on above: Performed By: #### 1 2361081, 1014824, 2266580, 2305917, 26272177, 5524964, 4589168, 1410093, 8421854, 78772553, 6203788 #### [facility] [address] [place] [address] CBC w/ Auto Diffon Erythrocyte distribution width (RBC) [Ratio] 14.2 % Normal 10.9-14.2 [facility] Comment on above: Performed By: #### 1 2501473, 1626059, 1075669, 6080469, 20185161, 2078366, 3638130, 0249240, 8977594, 41833305, 6851573 #### [facility] [address] [place] [address] Hematocrit (Bld) [Volume fraction] 39.4 % Normal 34.0-46.0 [facility] Comment on above: Performed By: #### 1 8070315, 8506784, 4777101, 9415765, 33433700, 2469245, 0932754, 7668845, 2289154, 78703126, 8827850 #### [facility] [address] [place] [address] Hemoglobin (Bld) [Mass/Vol] 13.3 g/dL Normal 12.0-16.0 [facility] Comment on above: Performed By: #### 1 6167769, 6557849, 9580842, 5458512, 69725572, 2734801, 9898234, 7684417, 8164884, 85760077, 2049731 #### [facility] [address] [place] [address] MCH (RBC) [Entitic mass] 29.2 pg Normal 27.0-34.0 [facility] Comment on above: Performed By: #### 1 5547413, 1667298, 9754208, 5976398, 57272214, 9394578, 7896378, 3694007, 2220034, 15307568, 6953111 #### [facility] [address] [place] [address] MCHC (RBC) [Mass/Vol] 33.8 g/dL Normal 33.3-35.7 [facility] Comment on above: Performed By: #### 1 2123219, 6025427, 7352021, 4885324, 84876727, 8104103, 6185999, 6940728, 6791792, 72242481, 7867495 #### [facility] Laboratory [address] [place] [address] MCV (RBC) [Entitic vol] 86.6 fL Normal 80.0-100.0 [facility] Comment on above: Performed By: #### 1 1337791, 6573818, 0952813, 7189334, 32257497, 1757810, 6672787, 0226427, 4843215, 50702720, 5335722 #### [facility] [address] [place] [address] Platelet mean volume (Bld) [Entitic vol] 8.8 fL Normal 6.4-10.8 [facility] Comment on above: Performed By: #### 1 3627699, 6733799, 5421598, 9664351, 34297315, 8425053, 9170035, 0829374, 7658091, 40158380, 9200814 #### [facility] [address] [place] [address] Platelets (Bld) [#/Vol] 307.0 E9/L Normal 150.0-500.0 [facility] Comment on above: Performed By: #### 1 4301176, 6616589, 1081775, 7605448, 06655478, 0467713, 0987753, 5903588, 1572854, 22080950, 9336388 #### [facility] [address] [place] [address] RBC (Bld) [#/Vol] 4.6 E12/L Normal 4.3-5.9 [facility] Comment on above: Performed By: #### 1 6776835, 4119971, 5628899, 3336440, 59915491, 2654498, 3420770, 4994793, 5447694, 81906192, 1275003 #### [facility] [address] [place] [address] WBC corrected for nucl RBC Auto (Bld) [#/Vol] 9.9 E9/L Normal 4.0-11.0 [facility] Comment on above: Performed By: #### 1 0735023, 0769984, 4165100, 2148866, 80290588, 9199745, 0351133, 4013715, 4050382, 87241919, 7076378 #### [facility] [address] [place] [address] CKon 09-14-2018 CK [Catalytic activity/Vol] 53 Int._Unit/L Normal 14-261 [facility] Comment on above: Performed By: #### 1 1046909, 7043663, 6250668, 2288588, 22328852, 3974455, 7731557, 1139907, 5397436, 30715032, 2078544 #### [facility] Laboratory [address] [place] [address] ED Clinical Summaryon 2018 ED Clinical Summary (Inserted Image. Melissa ble to display) [address] [address] ED Clinical Summary Person Information Name: JONES HALEY [facility] Age: 37 Years : 1980 12:00 AM Sex: Female Language: Monegasque PCP: Charles Mitchell DO Marital Status: Single Phone: [phone] Visit Id: Visit Reason: Anxiety; Paraesthesia; NUMBNESS [...] 09/14/2018 12:17 AM 09/14/2018 12:17 AM ADDRESS: [address] [place] [address] [id number] [facility] DOC NOTES: MEDICAL INFORMATION: Prescriptions Given: Prescription Display gabapentin (gabapentin 100 mg Cap) 100 mg = 1 cap(s), Oral, Daily, X 7 day(s), # 7 cap(s), Refills(s) 0, Pharmacy: [facility] gabapentin (gabapentin 100 mg Cap) 100 mg = 1 cap(s), Oral, Daily, X 7 day(s), # 7 cap(s), Refills(s) 0, Pharmacy: [facility]/pharmacy #[id number] magnesium oxide (magnesium oxide 400 mg Tab) 400 mg = 1 tab(s), Oral, Daily, X 7 day(s), # 7 tab(s), Refills(s) 0, Pharmacy: [facility] magnesium oxide (magnesium oxide 400 mg Tab) 400 mg = 1 tab(s), Oral, Daily, X 7 day(s), # 7 tab(s), Refills(s) 0, Pharmacy: [facility]/pharmacy #[id number] Home Meds Display metformin (metformin 500 mg ER Tab) 250 mg, Oral, BID, Refills(s) 0 PATIENT EDUCATION INFORMATION: Instructions: Paresthesia, Rpcx-yn-Dbdi; Restless Legs Syndrome Follow up: With: Address: When: Sayda [address] [place] [address] [place] [address] Business (1) Within 1 to 2 days Comments: neurologist you may also follow up with him With: Address: When: [address] [address] Business (1) Within 1 to 2 days Comments: Return to ED if symptoms worsen DIAGNOSIS: 1:Restless leg syndrome Normal [facility] ED Note-Nursingon 09-14-2018 ED Note-Nursing Pt up to RR, gait steady. Normal [facility] ED Note-Nursing Aware of need for ur ine specimen, denies urge at present, states will notify when able to produce sample, will monitor. Normal [facility] ED Note-Physicianon 09-15-19 19 ED Note-Physician Basic [...] day(s), # 7 cap(s), Refills(s) 0, Pharmacy: [facility]/pharmacy #[id number] magnesium oxide, 400 mg = 1 tab(s), Oral, Daily, X 7 day(s), # 7 tab(s), Refills(s) 0, Pharmacy: [facility]/pharmacy #[id number] Sodium Chloride 0.9% intravenous [...] Sayda Kelley Within 1 to [address] [address]- Business (1) Additional Instructions: neurologist you may also follow up with him Charles Mitchell Within 1 to [address] [place] [address] Business (1) Additional Instructions: Return to ED if symptoms worsen Patient Education Paresthesia, Mdfo-nt-Uiwu Restless Legs Syndrome Problem List/Past Medical History [...] Lymph Auto: 30.6 % (09/13/18 23:03:00 EDT) Sibley Auto: 7.2 % (09/13/18 23:03:00 EDT) Eos Auto: 2.2 % (09/13/18 23:03:00 EDT) Basophil Auto: 0.6 % (09/13/18 23:03:00 EDT) Neutro Absolute: 5.9 E9/L (09/13/18 23:03:00 EDT) Lymph Absolute: 3 E9/L (09/13/18 23:03:00 EDT) Sibley Absolute: 0.7 E9/L (09/13/18 23:03:00 EDT) Eos [...] Results No qualifying data available. Normal [facility] Comment on above: Result Comment: Elec gene Signed By: Génesis Lozoya DO\.dyan\Date and Time [...] Document Reviewed: 01/29/2012 ExitCare? Patient Information ?2014 [employer]. This information is not intended to replace [...] ? Drawing. ? Crawling. ? Worming. ? Harris. ? Tingling. ? Pins and needles. ? [...] Document Reviewed: 08/06/2011 ExitCare? Patient Information ?2015 [employer]. This information is not intended to replace advice given to you by your health care provider. Make sure you discuss any questions you have with your health care provider. Normal [facility] ED Patient Summaryon 019 ED Patient Summary (Inserted Image. Melissa ble to display) [place] [address] Patient Discharge Instructions Person Information Name: JONES HALEY Age: 37 Years Arrival Date: 09/13/2018 10:16 PM Discharge Diagnosis: 1:Restless leg syndrome Primary Care Physician: Charles Mitchell DO Provider Information Primary Provider: Génesis Lozoya DO [employer] Worker:None The exam and treatment you received in the Emergency Department were for an urgent problem and are not intended as complete care. It is important that you follow up with a doctor, nurse practitioner, or physician?s real estate assistant for ongoing care. If your symptoms [...] Follow-up Instructions: With: Address: When: Sayda Kelley [facility], [address] [place] [address] Business (1) Within 1 to 2 days Comments: neurologist you may also follow up with him With: Address: When: [facility] [address] [place] [address] Business (1) Within 1 to 2 days Comments: Return to ED if symptoms worsen In the event that this physician does not participate in your insurance network, please consult with your insurance company to find a nearby participating provider. Patient Education Materials: Paresthesia, Nost-xh-Pfqx; Restless Legs Syndrome A MESSAGE TO ALL PATIENTS REGARDING OPIOIDS PRESCRIPTION OPIOIDS: WHAT YOU NEED TO KNOW Prescription opioids can be used to help relieve kevvsing-ka-krignu pain and are often prescribed following a [...] struggling with addiction, tell your health healthcare administration internship and ask for guidance or call [employer]?S National Helpline at 5-917-074-PKIT. v Source: [place] Department of Health and Human Services/Center for Disease Control & Prevention [facility] Medications Given: Medication Dose Route Sodium Chloride 0.9% intravenous solution 1000.00 mL Initial Volume 1000.00 mL/hr IV Piggyback Left Mid Forearm Medication Information: New Medications [facility]/pharmacy #[id number], [address], [place] [id number], [phone] gabapentin (gabapentin 100 mg Cap) 1 Capsules By Mouth every day for 7 Days. Refills: 0. magnesium oxide (magnesium oxide 400 mg Tab) 1 Tabs By Mouth every day for 7 Days. Refills: 0. [facility], [address] [facility] [place] [id number], [phone] gabapentin (gabapentin 100 mg Cap) 1 Capsules By Mouth every day for 7 Days. Refills: 0. magnesium oxide (magnesium oxide 400 mg Tab) 1 Tabs By Mouth every day for 7 Days. Refills: 0. Medications to Continue with No Changes Other Medications metformin (metformin 500 mg ER Tab) 250 Milligram By Mouth 2 times a day. Comment: Pharmacy Information: Thank you for choosing [facility] Patient Education Materials: Paresthesia Paresthesia is [...] Document Reviewed: 01/29/2012 ExitCare? Patient Information ?2015 [employer]. This information is not intended to replace [...] ? Drawing. ? Crawling. ? Worming. ? Harris. ? Tingling. ? Pins and needles. ? [...] Document Reviewed: 08/06/2011 ExitCare? Patient Information ?2014 [employer]. This information is not intended to replace advice given to you by your health care provider. Make sure you discuss any questions you have with your health care provider. TERA Dorantes NICOLE B , have received the following patient education materials/instructions and have verbalized understanding: Patient Education Materials: Paresthesia, Bkjo-vt-Halv; Restless Legs Syndrome Follow-up Instructions: With: Address: When: Sayda Warren [facility], [place] [address] Business (1) Within 1 to 2 days Comments: neurologist you may also follow up with him With: Address: When: [address] [address] Business (1) Within 1 to 2 days Comments: Return to ED if symptoms worsen Prescriptions: [gabapentin (gabapentin 100 mg Cap)] [gabapentin (gabapentin 100 mg Cap)] [magnesium oxide (magnesium oxide 400 mg Tab)] [magnesium oxide (magnesium oxide 400 mg Tab)] Patient Signature Date Clinician/Nurse Signature Date 09/14/18 00:21:38 Normal [facility] Hep Func Panelon 09-14-2018 Bilirubin.direct [Mass/Vol] UTC Abnormal 0.1-0.9 [facility] Comment on above: Result Comment: Resu lt verified by Discern Rule. Performed result UTC (Unable to Calculate) was sent as an Alpha code due the inability to calculate a valid numeric value. Performed By: #### 1 0896556, 1545100, 9128165, 2065295, 64773344, 6900213, 2050201, 6386446, 7809019, 76677744, 2210645 #### [facility] Laboratory [address] [place] [address] Albumin [Mass/Vol] 1.1 g/dL Normal 1.1-2.2 [facility] Comment on above: Performed By: #### 1 9665807, 1952482, 7851535, 8047776, 10534062, 4872021, 9062398, 7778898, 3593787, 30130898, 3472347 #### [facility] Laboratory [address] [place] [address] Albumin [Mass/Vol] 4.1 g/dL Normal 3.3-5.0 [facility] Comment on above: Performed By: #### 1 1053471, 1329727, 2694140, 5547579, 98250778, 7594289, 7935140, 4092498, 6288350, 88970529, 8621708 #### [facility] Laboratory [address] [place] [address] ALP [Catalytic activity/Vol] 69 Int._Unit/L Normal 21-98 [facility] Comment on above: Performed By: #### 1 3227472, 7734303, 6431236, 0408607, 30298238, 6088986, 2594210, 0062074, 4695269, 67638003, 5726841 #### [facility] Laboratory [address] [place] [address] ALT No additional P-5'-P [Catalytic activity/Vol] 27 Int._Unit/L Normal 6-46 [facility] Comment on above: Performed By: #### 1 2920701, 4094263, 3760766, 1937386, 96371280, 9867168, 9390211, 6580172, 5822099, 88431153, 3675609 #### [facility] [address] [place] [address] AST [Catalytic activity/Vol] 16 Int._Unit/L Normal 5-43 [facility] Comment on above: Performed By: #### 1 7786803, 7929452, 3264262, 5978812, 72010071, 2885538, 4270257, 1730410, 4241713, 15891036, 6310554 #### [facility] [address] [place] [address] Bilirubin [Mass/Vol] 0.5 mg/dL Normal 0.0-1.1 [facility] Comment on above: Performed By: #### 1 8200813, 0188122, 1354948, 0359722, 31985806, 9157447, 0654941, 6118353, 3090012, 25968861, 0185291 #### [facility] [address] [place] [address] Bilirubin.direct [Mass/Vol] mg/dL Normal 0.1-0.4 [facility] Comment on above: Performed By: #### 1 4664743, 7411369, 9259761, 3615176, 65974167, 6666660, 8992161, 5580483, 3213602, 96273279, 3330210 #### [facility] [address] [place] [address] Globulin (S) [Mass/Vol] 3.7 g/dL Normal 1.4-4.0 [facility] Comment on above: Performed By: #### 1 6242404, 7770359, 1572172, 4361071, 00344483, 5023835, 4430104, 6433215, 8099366, 14601603, 3686409 #### [facility] [address] [place] [address] Protein [Mass/Vol] 7.8 g/dL Normal 6.0-7.8 [facility] Comment on above: Performed By: #### 1 7202944, 0485260, 9760453, 0734167, 03967479, 9576483, 1139843, 6007556, 4733364, 93768558, 4034420 #### [facility] [address] [place] [address] Magnesiumon 09-14-2018 Magnesium [Mass/Vol] 1.9 mg/dL Normal 1.3-2.4 [facility] Comment on above: Performed By: #### 1 5555737, 1933534, 6485742, 8223740, 33398825, 9662650, 7480634, 5775107, 8171595, 63299162, 1855354 #### [facility] [address] [place] [address] Myoglobinon 09-14-2018 Myoglobin [Mass/Vol] 9 ng/mL Normal <=69 [facility] Comment on above: Performed By: #### 1 5532772, 0526436, 6014654, 9707956, 25509558, 2671059, 8806255, 7462672, 5476280, 05666282, 0939191 #### [facility] [address] [place] [address] PT & PTTon 09-14-2018 aPTT Coag (PPP) [Time] 34.5 second(s) Normal 25.1-36.5 [facility] Comment on above: Result Comment: Hepa rin therapeutic range (represented by Anti-Factor Xa activity of 0.2 - 0.4 U/mL) corresponds to PTT of 56.6 - 109.0 sec. Performed By: #### 1 6927124, 8623475, 2564725, 1041412, 24150496, 6082134, 3559221, 6414517, 2700061, 79020997, 0382501 #### [facility] [address] [place] [address] INR Coag (PPP) [Relative time] 1.0 {INR} [facility] Comment on above: Result Comment: INR results are specifically intended to assess patients stabilized on long-term Anticoagulation therapy suggested INR?s ?Less Intensive Anticoagulation? 2.0 ? 3.0 Conventional Range 3.0 ? 4.5 Performed By: #### 1 3001154, 7043877, 4814393, 8246494, 86501005, 9456120, 4711738, 5117917, 0064063, 33002071, 7910017 #### [facility] [address] [place] [address] PT Coag (PPP) [Time] 11.2 second(s) Normal 10.2-12.9 [facility] Comment on above: Performed By: #### 1 8284911, 6325716, 1399627, 4513928, 49450321, 1029198, 9964344, 3831192, 2501565, 90999347, 4218635 #### [facility] [address] [place] [address] Phosphoruson 09-14-2018 Phosphate [Mass/Vol] 3.8 mg/dL Normal 1.9-4.[address] [facility] Comment on above: Performed By: #### 1 2014211, 4185121, 7872576, 2354348, 64461543, 3468047, 5911027, 8596469, 9013051, 26027986, 6333519 #### [facility] [address] [place] [address] Troponin 0 Hr.on 09-14-2018 Troponin I.cardiac [Mass/Vol] ng/mL Normal <=0.03 [facility] Comment on above: Result Comment: New Troponin Assay 10/05/13 [facility] Cutoff value > or = 0.03 ng/mL in conjunction with clinical conditions of myocardial infarction. ([email or web address].org/guidelines) Performed By: #### 1 8027210, 9787871, 5969137, 8381560, 47916846, 1663869, 2252432, 3580168, 8966194, 15433415, 1308556 #### [facility] [address] [place] [address] UA With Cult Reflexon 2018 Bacteria LM Ql (Urine sed) TRACE Normal Trace [facility] Comment on above: Performed By: #### 1 6955938, 1190521, 7965888, 3147565, 78492287, 3672357, 2261365, 6397702, 9917010, 00424983, 1803694 #### [facility] [address] [place] [address] Bilirubin Ql (U) Negative Normal Negative [facility] Comment on above: Performed By: #### 1 2142943, 0352678, 0913149, 5702363, 07556981, 4466738, 5817965, 1914440, 1558522, 59890218, 9254790 #### [facility] [address] [place] [address] Clarity (U) CLEAR Normal Clear [facility] Comment on above: Performed By: #### 1 3328992, 9752817, 5301508, 8617100, 71818391, 1672611, 9988460, 7096463, 4749015, 10835217, 4378982 #### [facility] [address] [place] [address] Color (U) YELLOW Normal Yellow [facility] Comment on above: Performed By: #### 1 8520827, 5590035, 6837633, 6839765, 96922800, 5023513, 1272912, 6940475, 0422009, 93685775, 7437444 #### [facility] Laboratory [address] [place] [address] Epithelial cells.squamous LM.HPF (Urine sed) [#/Area] 0-2 Normal 0-2 [facility] Comment on above: Performed By: #### 1 4354482, 8233834, 6347154, 7295251, 44389677, 0989233, 2219870, 6712340, 4291827, 89106120, 3493815 #### [facility] [address] [place] [address] Glucose Test strip (U) [Mass/Vol] Negative Normal Negative [facility] Comment on above: Performed By: #### 1 7896079, 3121853, 1338619, 8632202, 13956846, 9678178, 2786086, 9095631, 6590733, 54891454, 7276616 #### [facility] [address] [place] [address] Hemoglobin Ql (U) Negative Normal Negative [facility] Comment on above: Performed By: #### 1 0273440, 8473871, 6087052, 5053352, 64240692, 4035790, 4942781, 2225755, 4319461, 97486540, 0972287 #### [facility] [address] [place] [address] Ketones (U) [Mass/Vol] Negative Normal Negative [facility] Comment on above: Performed By: #### 1 6255395, 6582572, 4578342, 4160910, 34229180, 0804211, 8087856, 1644243, 8423276, 82790039, 0698932 #### [facility] [address] [place] [address] Levant.plasma/Lithi um.RBC (Bld) [Mass ratio] 0-3 Normal 0-3 [facility] Comment on above: Performed By: #### 1 7165211, 6100331, 2171061, 7298899, 76408950, 8584709, 1366223, 9588811, 2965936, 65706443, 4953862 #### [facility] [address] [place] [address] Mucus Ql (Urine sed) TRACE Normal [facility] Comment on above: Performed By: #### 1 7521188, 0429224, 6026295, 2829089, 73271619, 4021726, 4366633, 3229055, 2003796, 09853094, 0126687 #### [facility] [address] [place] [address] Nitrite Ql (U) Negative Normal Negative [facility] Comment on above: Performed By: #### 1 1661876, 6242173, 7816755, 2109826, 23846999, 1535712, 5720561, 2000602, 4128679, 16820708, 7557927 #### [facility] [address] [place] [address] pH (U) 6.0 [pH] 5.0-9.0 [facility] Comment on above: Performed By: #### 1 9384754, 6949457, 7769231, 9834420, 63487508, 1433423, 8516729, 2525855, 4394955, 07532277, 1738488 #### [facility] [address] [place] [address] Protein (U) [Mass/Vol] Negative Normal Negative [facility] Comment on above: Performed By: #### 1 0947222, 9299229, 7365940, 3113887, 07575226, 6899861, 8153900, 0454468, 0570746, 57030015, 8570741 #### [facility] [address] [place] [address] Specific gravity (U) [Rel density] 1.010 1.005-1.030 [facility] Comment on above: Performed By: #### 1 1522107, 4850078, 8036253, 2632924, 80153712, 1021987, 7921331, 4476821, 8308543, 20233128, 3140714 #### [facility] [address] [place] [address] UA Spec Desc Clean Catch Normal [facility] Comment on above: Performed By: #### 1 6301081, [id number], [id number], [id number], [id number], [id number], [id number], [id number], [id number], [id number], [id number] #### [facility] [address] [place] [address] Urobilinogen Qn (U) 0.2 {Carmella'U}/dL Normal 0.0-1.0 [facility] Comment on above: Performed By: #### 1 [id number], [id number], [id number], [id number], [id number], [id number] #### [facility] [address] [place] [address] WBC Auto Ql (U) Negative Normal Negative [facility] Comment on above: Performed By: #### 1 [id number], [id number], [id number], [id number], [id number], [id number], [id number], [id number] #### [facility] [address] [place] [address] WBC LM.HPF (Urine sed) [#/Area] 0-5 Normal 0-5 [facility] Comment on above: Performed By: #### 1 [id number], [id number], [id number], [id number], [id number], [id number], [id number], [id number] #### [facility] [address] [place] [address] XR Chest Single Viewon 09-14 XR Chest [...] Signed by: Sanjay Alcocer M.D. Transcribed by: tye Technologist: AP Normal [facility] XR FOOT LEFT (MIN 3 VIEWS)on 09-14-2018 XR FOOT LEFT (MIN 3 VIEWS) Radiology exam is complete. No Radiologist dictation. Please follow up with ordering provider. Final result Normal [facility] XR FOOT RIGHT (MIN 3 VIEWS)o n 09-14-2018 XR FOOT RIGHT (MIN 3 VIEWS) Radiology exam is complete. No Radiologist dictation. Please follow up with ordering provider. Final result Normal [facility] eGFRon 09-14-2018 GFR/1.73 sq M predicted among blacks MDRD (S/P/Bld) [Vol rate/Area] mL/min/{1.73_m2} Normal >=59 [facility] Comment on above: Order Comment: Order added by Discern Expert. Result Comment: eGFR is race adjusted. AA=. Performed By: #### 1 [id number], [id number], [id number], [id number], [id number], [id number], [id number], [id number] #### [facility] [address] [place] [address] GFR/1.73 sq M predicted among non-blacks MDRD (S/P/Bld) [Vol rate/Area] mL/min/{1.73_m2} Normal >=59 [facility] Comment on above: Order Comment: Order added by Discern Expert. Result Comment: [employer] Professor anthony kidney disease could be indicated at eGFR's of less than 60 mL/min/1.73m2. Kidney failure is indicated at less than 15 mL/min/1.73m2. Performed By: #### 1 [id number], [id number], [id number], [id number], [id number], [id number], [id number], [id number] #### [facility] [address] [place] [address] Vital Signs Date Time Vital Sign Value Performing Clinician Facility 09-30-2023 10:48-0400 Body temperature 97 [degF] [employer] Work Phone: [facility] 09-30-2023 10:48-0400 Diastolic blood pressure 82 mm[Hg] [employer] Work Phone: [facility] 09-30-2023 10:48-0400 Heart rate 71 /min Ma Beibamboo Work Phone: [facility] 09-30-2023 10:48-0400 Respiratory rate 18 /min [employer] Work Phone: [facility] 09-30-2023 10:48-0400 SaO2% (BldA) [Mass fraction] 97 % [employer] Work Phone: [facility] 09-30-2023 10:48-0400 Systolic blood pressure 132 mm[Hg] [employer] Work Phone: [facility] 08-31-2023 10:34-0400 Body temperature 97.3 [degF] Ma Sand Work Phone: [facility] 08-31-2023 10:34-0400 Diastolic blood pressure 66 mm[Hg] Ma Sand Work Phone: [facility] 08-31-2023 10:34-0400 Heart rate 68 /min Ma Sand Work Phone: [facility] 08-31-2023 10:34-0400 Respiratory rate 18 /min Ma Sand Work Phone: [facility] 08-31-2023 10:34-0400 SaO2% (BldA) [Mass fraction] 99 % Ma Sand Work Phone: [facility] 08-31-2023 10:34-0400 Systolic blood pressure 105 mm[Hg] Ma Sand Work Phone: [facility] 08-05-2023 11:15-0400 Body temperature 97.39 [degF] Ma Sand Work Phone: [facility] 08-05-2023 11:15-0400 Diastolic blood pressure 41 mm[Hg] Ma Sand Work Phone: [facility] 08-05-2023 11:15-0400 Heart rate 68 /min Ma Sand Work Phone: [facility] 08-05-2023 11:15-0400 Respiratory rate 18 /min Ma Sand Work Phone: [facility] 08-05-2023 11:15-0400 SaO2% (BldA) [Mass fraction] 98 % Ma Sand Work Phone: [facility] 08-05-2023 11:15-0400 Systolic blood pressure 98 mm[Hg] Ma Sand Work Phone: [facility] 07-13-2023 11:49-0500 Body temperature 97.5 [degF] Ma Sand Work Phone: [facility] 02-20-2024 11:49-0500 Diastolic blood pressure 74 mm[Hg] Ma Sand Work Phone: [facility] 07-13-2023 11:49-0500 Heart rate 83 /min Ma Sand Work Phone: [facility] 07-13-2023 11:49-0500 Respiratory rate 18 /min Ma Sand Work Phone: [facility] 07-13-2023 11:49-0500 SaO2% (BldA) [Mass fraction] 96 % Ma Sand Work Phone: [facility] 07-13-2023 11:49-0500 Systolic blood pressure 109 mm[Hg] Ma Sand Work Phone: [facility] 07-13-2023 10:01-0500 Diastolic blood pressure 65 mm[Hg] Lois Holm MD Work Phone: [facility] 07-13-2023 10:01-0500 Systolic blood pressure 105 mm[Hg] Lois Holm MD Work Phone: [facility] 07-13-2023 09:41-0500 Body height 170.2 cm Lois Holm MD Work Phone: [facility] 07-13-2023 09:41-0500 Body mass index (BMI) [Ratio] 43.85 kg/m2 Lois Holm MD Work Phone: [facility] 07-13-2023 09:41-0500 Body weight 127.01 kg Lois Holm MD Work Phone: [facility] 07-13-2023 09:41-0500 Heart rate 71 /min Lois Holm MD Work Phone: [facility] 07-06-2023 14:48-0500 Body mass index (BMI) [Ratio] 41.81 kg/m2 Juan Luis Richardson MD Work Phone: [facility] 07-06-2023 14:48-0500 Body weight 119.3 kg Juan Luis Richardson MD Work Phone: [facility] 06-09-2023 08:45-0500 Body height 170.2 cm Michelle Britton [employer] Work Phone: [facility] 06-09-2023 08:45-0500 Body mass index (BMI) [Ratio] 44.48 kg/m2 Michelle Mitali [employer] Work Phone: [facility] 06-09-2023 08:45-0500 Body weight 128.82 kg Mcihelle Mitali [employer] Work Phone: [facility] 06-09-2023 08:45-0500 Diastolic blood pressure 82 mm[Hg] Michelle Britton [employer] Work Phone: [facility] 06-09-2023 08:45-0500 Heart rate 80 /min Michelle Britton [employer] Work Phone: [facility] 06-09-2023 08:45-0500 Systolic blood pressure 146 mm[Hg] Michelle Britton [employer] Work Phone: [facility] 05-26-2023 17:17-0500 Body weight 123.83 kg Christie Phan MD Work Phone: [facility] 04-26-2023 14:42-0500 Body weight 125.19 kg Christie Phan MD Work Phone: [facility] 03-19-2023 11:16-0400 Body temperature 97.7 [degF] Ma Sand Work Phone: [facility] 03-19-2023 11:16-0400 Diastolic blood pressure 54 mm[Hg] Ma Sand Work Phone: [facility] 03-19-2023 11:16-0400 Heart rate 75 /min Ma Sand Work Phone: [facility] 03-19-2023 11:16-0400 Respiratory rate 16 /min Ma Sand Work Phone: [facility] 03-19-2023 11:16-0400 SaO2% (BldA) [Mass fraction] 96 % Ma Sand Work Phone: [facility] 03-19-2023 11:16-0400 Systolic blood pressure 111 mm[Hg] Ma Sand Work Phone: [facility] 02-19-2023 10:56-0400 Body height 170.2 cm Jose Najera MD Work Phone: [facility] 02-19-2023 10:56-0400 Body temperature 97.39 [degF] Jose Najera MD Work Phone: [facility] 02-19-2023 10:56-0400 Body weight 120.75 kg Jose Najera MD Work Phone: [facility] 02-19-2023 10:56-0400 Diastolic blood pressure 69 mm[Hg] Jose Najera MD Work Phone: [facility] 02-19-2023 10:56-0400 Heart rate 110 /min Jose Najera MD Work Phone: [facility] 02-19-2023 10:56-0400 Respiratory rate 16 /min Jose Najera MD Work Phone: [facility] 02-19-2023 10:56-0400 SaO2% (BldA) [Mass fraction] 96 % Jose Najera MD Work Phone: [facility] 02-19-2023 10:56-0400 Systolic blood pressure 132 mm[Hg] Jose Najera MD Work Phone: [facility] 01-22-2023 12:09-0400 Diastolic blood pressure 76 mm[Hg] Ma Sand Work Phone: [facility] 01-22-2023 12:09-0400 Systolic blood pressure 107 mm[Hg] Ma Sand Work Phone: [facility] 01-22-2023 12:08-0400 Body temperature 97.59 [degF] Ma Sand Work Phone: [facility] 01-22-2023 12:08-0400 Heart rate 102 /min Ma Sand Work Phone: [facility] 01-22-2023 12:08-0400 Respiratory rate 16 /min Ma Sand Work Phone: [facility] 01-22-2023 12:08-0400 SaO2% (BldA) [Mass fraction] 97 % Ma Sand Work Phone: [facility] 11-19-2022 11:00-0400 Body temperature 97.2 [degF] Ma Sand Work Phone: [facility] 11-19-2022 11:00-0400 Diastolic blood pressure 54 mm[Hg] Ma Sand Work Phone: [facility] 11-19-2022 11:00-0400 Heart rate 98 /min Ma Sand Work Phone: [facility] 11-19-2022 11:00-0400 Respiratory rate 16 /min Ma Sand Work Phone: [facility] 11-19-2022 11:00-0400 SaO2% (BldA) [Mass fraction] 98 % Ma Sand Work Phone: [facility] 11-19-2022 11:00-0400 Systolic blood pressure 126 mm[Hg] Ma Sand Work Phone: [facility] 10-22-2022 11:51-0400 Body height 170.2 cm Ma Sand Work Phone: [facility] 10-22-2022 11:51-0400 Body weight 120.66 kg Ma Sand Work Phone: [facility] 10-22-2022 11:51-0400 Respiratory rate 16 /min Ma Sand Work Phone: [facility] 10-22-2022 10:50-0400 Body height 170.2 cm Jose Najera MD Work Phone: [facility] 10-22-2022 10:50-0400 Body temperature 97 [degF] Jose Najera MD Work Phone: [facility] 10-22-2022 10:50-0400 Body weight 120.75 kg Jose Najera MD Work Phone: [facility] 10-22-2022 10:50-0400 Diastolic blood pressure 55 mm[Hg] Jose Najera MD Work Phone: [facility] 10-22-2022 10:50-0400 Heart rate 78 /min Jose Najera MD Work Phone: [facility] 10-22-2022 10:50-0400 Respiratory rate 16 /min Jose Najera MD Work Phone: [facility] 10-22-2022 10:50-0400 SaO2% (BldA) [Mass fraction] 98 % Jose Najera MD Work Phone: [facility] 10-22-2022 10:50-0400 Systolic blood pressure 132 mm[Hg] Jose Najera MD Work Phone: [facility] 09-24-2022 10:22-0400 Body height 170.2 cm Ma Sand Work Phone: [facility] 09-24-2022 10:22-0400 Body temperature 97 [degF] Ma Sand Work Phone: [facility] 09-24-2022 10:22-0400 Body weight 120.2 kg Ma Sand Work Phone: [facility] 09-24-2022 10:22-0400 Diastolic blood pressure 81 mm[Hg] Ma Sand Work Phone: [facility] 09-24-2022 10:22-0400 Heart rate 77 /min Ma Sand Work Phone: [facility] 09-24-2022 10:22-0400 Respiratory rate 16 /min Ma Sand Work Phone: [facility] 09-24-2022 10:22-0400 SaO2% (BldA) [Mass fraction] 97 % Cele Marshall Work Phone: [facility] 09-24-2022 10:22-0400 Systolic blood pressure 116 mm[Hg] Cele Marshall Work Phone: [facility] 09-07-2022 14:03-0400 Body weight 120.2 kg Christie Phan MD Work Phone: [facility] 08-27-2022 09:45-0400 Body height 170.2 cm Wilmer Driver [employer] Work Phone: [facility] 08-27-2022 09:45-0400 Body temperature 97.7 [degF] Wilmer Driver [employer] Work Phone: [facility] 08-27-2022 09:45-0400 Body weight 118.66 kg Wilmer Driver APRN[employer] Work Phone: [facility] 08-27-2022 09:45-0400 Diastolic blood pressure 55 mm[Hg] Wilmer Driver [employer] Work Phone: [facility] 08-27-2022 09:45-0400 Heart rate 63 /min Wilmer Driver [employer] Work Phone: [facility] 08-27-2022 09:45-0400 Respiratory rate 16 /min Wilmer Driver [employer] Work Phone: [facility] 08-27-2022 09:45-0400 SaO2% (BldA) [Mass fraction] 96 % Wilmer Driver APRN[employer] Work Phone: [facility] 08-27-2022 09:45-0400 Systolic blood pressure 117 mm[Hg] Wilmer Driver [employer] Work Phone: [facility] 05-20-2022 13:28-0500 Body height 170.2 cm Jose Najera MD Work Phone: [facility] 05-20-2022 13:28-0500 Body temperature 97.7 [degF] Jose Najera MD Work Phone: [facility] 05-20-2022 13:28-0500 Diastolic blood pressure 70 mm[Hg] Jose Najera MD Work Phone: [facility] 05-20-2022 13:28-0500 Heart rate 93 /min Jose Najera MD Work Phone: [facility] 05-20-2022 13:28-0500 Respiratory rate 16 /min Jose Najera MD Work Phone: [facility] 05-20-2022 13:28-0500 SaO2% (BldA) [Mass fraction] 97 % Jose Najera MD Work Phone: [facility] 05-20-2022 13:28-0500 Systolic blood pressure 127 mm[Hg] Jose Najera MD Work Phone: [facility] 03-18-2022 10:49-0400 Body height 170.2 cm Jose Najera MD Work Phone: [facility] 03-18-2022 10:49-0400 Body temperature 97.81 [degF] Jose Najera MD Work Phone: [facility] 03-18-2022 10:49-0400 Body weight 113.4 kg Jose Najera MD Work Phone: [facility] 03-18-2022 10:49-0400 Diastolic blood pressure 49 mm[Hg] Jose Najera MD Work Phone: [facility] 03-18-2022 10:49-0400 Heart rate 86 /min Jose Najear MD Work Phone: [facility] 03-18-2022 10:49-0400 Respiratory rate 16 /min Jose Najera MD Work Phone: [facility] 03-18-2022 10:49-0400 SaO2% (BldA) [Mass fraction] 98 % Jose Najera MD Work Phone: [facility] 03-18-2022 10:49-0400 Systolic blood pressure 145 mm[Hg] Jose Najera MD Work Phone: [facility] 03-09-2022 11:41-0400 Body height 170.2 cm Christie Phan MD Work Phone: [facility] 03-09-2022 11:41-0400 Body weight 112.49 kg Christie Phan MD Work Phone: [facility] 03-09-2022 11:41-0400 Diastolic blood pressure 100 mm[Hg] Christie Phan MD Work Phone: [facility] 03-09-2022 11:41-0400 Systolic blood pressure 158 mm[Hg] Christie Phan MD Work Phone: [facility] 03-04-2022 10:39-0400 Body height 170.2 cm Jose Najera MD Work Phone: [facility] 03-04-2022 10:39-0400 Body temperature 97.5 [degF] Jose Najera MD Work Phone: [facility] 03-04-2022 10:39-0400 Body weight 112.76 kg Jose Najera MD Work Phone: [facility] 03-04-2022 10:39-0400 Diastolic blood pressure 48 mm[Hg] Jose Najera MD Work Phone: [facility] 03-04-2022 10:39-0400 Heart rate 79 /min Jose Najera MD Work Phone: [facility] 03-04-2022 10:39-0400 Respiratory rate 16 /min Jose Najera MD Work Phone: [facility] 03-04-2022 10:39-0400 SaO2% (BldA) [Mass fraction] 99 % Jose Najera MD Work Phone: [facility] 03-04-2022 10:39-0400 Systolic blood pressure 132 mm[Hg] Jose Najera MD Work Phone: [facility] 11-26-2021 16:00-0400 Body height 168.91 cm Mirela Kelsey [employer] Other 11-26-2021 16:00-0400 Body mass index (BMI) [Ratio] 37.68 kg/m2 Mirela Kelsye [employer] Other 11-26-2021 16:00-0400 Body temperature 98.4 [degF] Mirela Kelsey [employer] Other 11-26-2021 16:00-0400 Body weight 107.5 kg Mirela Kelsey Other [employer] Other 11-26-2021 16:00-0400 Diastolic blood pressure 61 mm[Hg] Mirela Kelsey [employer] Other 11-26-2021 16:00-0400 Systolic blood pressure 115 mm[Hg] Mirela Kelsey [employer] Other 10-24-2021 08:18-0400 Body weight 108.86 kg Lynne Ni MD Work Phone: [facility] 10-24-2021 08:18-0400 Diastolic blood pressure 42 mm[Hg] Lynne Ni MD Work Phone: [facility] 10-24-2021 08:18-0400 Heart rate 72 /min Lynne Ni MD Work Phone: [facility] 10-24-2021 08:18-0400 Systolic blood pressure 106 mm[Hg] Lynne Ni MD Work Phone: [facility] 10-15-2021 15:45-0400 Body height 168.91 cm Mirela Kelsey [employer] Other 10-15-2021 15:45-0400 Body mass index (BMI) [Ratio] 38.31 kg/m2 Mirela Kelsey [employer] Other 10-15-2021 15:45-0400 Body temperature 98.1 [degF] Mirela Kelsey [employer] Other 10-15-2021 15:45-0400 Body weight 109.32 kg Mirela Kelsey Other [employer] Other 10-15-2021 15:45-0400 Diastolic blood pressure 60 mm[Hg] Mirela Kelsey [employer] Other 10-15-2021 15:45-0400 Systolic blood pressure 114 mm[Hg] Mirela Kelsey Other [employer] Other 09-11-2021 15:15-0400 Body height 168.91 cm Mirela Kelsey [employer] Other 09-11-2021 15:15-0400 Body mass index (BMI) [Ratio] 37.99 kg/m2 Mirela Kelsey [employer] Other 09-11-2021 15:15-0400 Body temperature 97.9 [degF] Mirela Kelsey Other [employer] Other 09-11-2021 15:15-0400 Body weight 108.41 kg Mirela Buffy Other [employer] Other 09-11-2021 15:15-0400 Diastolic blood pressure 83 mm[Hg] Mirela Kelsey Other [employer] Other 09-11-2021 15:15-0400 Systolic blood pressure 144 mm[Hg] Mirela Kelsey Other [employer] Other 10-07-2020 12:45-0400 Diastolic blood pressure 78 mm[Hg] [facility] [employer] Phone: 10-07-2020 12:45-0400 Heart rate 68 /min [facility] [employer] Phone: 10-07-2020 12:45-0400 SaO2% (BldA) [Mass fraction] 99 % [facility] [employer] Phone: 10-07-2020 12:45-0400 Systolic blood pressure 112 mm[Hg] [facility] [employer] Phone: 10-07-2020 10:45-0400 Respiratory rate 22 /min [facility] [employer] Phone: 10-07-2020 09:01-0400 Body height 170.2 cm [facility] [employer] Phone: 10-07-2020 09:01-0400 Body mass index (BMI) [Ratio] 36.65 kg/m2 [facility] [employer] Phone: 10-07-2020 09:01-0400 Body temperature 97.81 [degF] [facility] Phone: 10-07-2020 09:01-0400 Body weight 106.14 kg [facility] [employer] Phone: Encounters Encounter Date Encounter Type Care Provider Facility Start: 09-30-2023 End: 09-30-2023 ambulatory MADELAINE FERRIS Facility:[facility] Start: 09-30-2023 End: 09-30-2023 Nursing evaluation of patient and report Cele Nurse Dre Marshall Work Phone: Hematology/Oncology Comment on above: Elevated sed rate (P rimary Dx); Megaloblastic anemia due to vitamin B12 deficiency Start: 09-13-2023 End: 09-13-2023 ambulatory JUAN LUIS RICHARDSON Not Available Comment on above: SPP Inflammatory Con ditions - Medication Refill (Benlysta) Start: 09-09-2023 End: 09-10-2023 [facility] Facility:[facility] Start: 09-09-2023 End: 09-10-2023 ambulatory Jose Najera MD Work Phone: Hematology/Oncology Comment on above: 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); Obstructive sleep apnea syndrome; Chronic fatigue and malaise; High total serum IgM; JOSE RAFAEL (obstructive sleep apnea); Somnolence, daytime Start: 09-09-2023 End: 09-10-2023 Telemedicine consultation with patient Jose Najera MD Work Phone: [facility] Start: 09-04-2023 Telephone encounter Lynne shaw MD Work Phone: Rheumatology Comment on above: Results Start: 08-31-2023 End: 08-31-2023 [facility] Facility:[facility] Start: 08-31-2023 End: 08-31-2023 Nursing evaluation of patient and report Cele Marshall Work Phone: Hematology/Oncology Comment on above: 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); Elevated sed rate Start: 08-12-2023 [facility]e [facility] Comment on above: SPP Inflammatory Con ditions - Medication Refill (Benlysta ) Start: 08-10-2023 End: 08-10-2023 ambulatory GORDO Mitch LICO Not Available Start: 08-05-2023 End: 08-05-2023 [facility] Facility:[facility] Start: 08-05-2023 End: 08-05-2023 Nursing evaluation of patient and report Cele Marshall Work Phone: Hematology/Oncology Comment on above: 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); Elevated sed rate Start: 07-15-2023 End: 07-15-2023 ambulatory BERNABE SIMMONSGodwin Not Available Start: 07-13-2023 End: 07-13-2023 ambulatory Aidee Ballesterosley [facility] Start: 07-13-2023 End: 07-13-2023 Nursing evaluation of patient and report Ma Nurse Dre Marshall Work Phone: Hematology/Oncology Comment on above: 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); Elevated sed rate SPP Inflammatory Con ditions - Medication Refill (Benlysta ) Start: 07-13-2023 End: 07-13-2023 Office outpatient new 45 minutes Lois Holm MD Work Phone: [facility] Comment on above: Shortness of breath [...] minutes Juan Luis Richardson MD Work Phone: [facility] Comment on above: Autoimmune disease ( CMS/HCC) (Primary Dx); Autonomic dysfunction; Lumbosacral radiculopathy; Bilateral leg weakness Start: 07-05-2023 Chart abstracting Juan Luis ramirez MD Work Phone: [facility] Start: 06-10-2023 End: 06-10-2023 ambulatory MADELAINE FERRIS Facility:[facility] Start: 06-09-2023 End: 06-09-2023 [facility]ulatory [facility] Start: 06-09-2023 End: 06-09-2023 Office outpatient new 60 minutes Michelle Sharpeel [employer] Work Phone: [facility] Comment on above: Irregular heart rate (Primary Dx); Essential hypertension; Autonomic dysfunction; Obstructive sleep apnea syndrome; Primary hypertension Start: 06-03-2023 End: 06-03-2023 ambulatory MADELAINE Suarez Cristina Facility:[facility] Start: 06-01-2023 End: 06-01-2023 ambulatory MADELAINE Lynne [facility] Facility:[facility] Start: 06-01-2023 End: 06-01-2023 ambulatory SHARRON ROGERS Not Available Start: 05-26-2023 End: 05-26-2023 ambulatory MADELAINE Lynne Cristina Facility:[facility] Start: 05-26-2023 End: 05-26-2023 Office outpatient visit 40 minutes Christie Phan MD Work Phone: [facility] Comment on above: Obesity, Class III, BMI >= 40 (Primary Dx); Other chronic pain Start: 05-10-2023 End: 05-11-2023 ambulatory SHARRON Lynne NARENBRIANDA Not Available Start: 05-06-2023 End: 05-07-2023 ambulatory SHARRON Lynne NARENBRIANDA Not Available Start: 04-26-2023 End: 04-26-2023 Office [...] Not Available Start: 04-16-2023 End: 04-16-2023 ambulatory [facility] [employer]OLCristina Facility:[facility] Start: 04-16-2023 End: 04-16-2023 Nursing evaluation of patient and report Cele Marshall Work Phone: Hematology/Oncology Comment on above: 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); Elevated sed rate Start: 04-09-2023 End: 04-09-2023 [facility] Facility:[facility] Start: 03-19-2023 End: 03-19-2023 [facility] Facility:[facility] Start: 03-19-2023 End: 03-19-2023 Nursing evaluation of patient and report Cele Marshall Work Phone: Hematology/Oncology Comment on above: 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); Elevated sed rate Start: 03-16-2023 [facility] Work Phone: Neurology Comment on above: CMN Start: 03-11-2023 End: 03-11-2023 [facility] Facility:[facility] Start: 03-11-2023 End: 03-11-2023 Nursing evaluation of patient and report Nurse Mora jian Fu Work Phone: Rheumatology Comment on above: Systemic lupus eryth ematosus, unspecified SLE type, unspecified organ involvement status (HCC) (Primary Dx) Start: 03-03-2023 End: 03-03-2023 [facility] Facility:[facility] Start: 03-01-2023 Telephone encounter Lynne shaw MD Work Phone: Rheumatology Comment on above: Results (Eye Exam) Start: 02-19-2023 End: 02-19-2023 [facility] Facility:[facility] Start: 02-19-2023 End: 02-19-2023 Nursing evaluation [...] Refill Request Start: 02-11-2023 End: 02-11-[address] [facility] Facility:[facility] Start: 02-04-2023 End: 02-04-2023 ambulatory Lynne [...] deficiency; Elevated sed rate; Bilateral wrist pain; correction 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; Steroid-induced osteoporosis; 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 Start: 02-04-2023 Patient encounter procedure Clinton Schroeder (Pharmacist) [facility] Comment on above: SPP Inflammatory Con ditions - Treatment Referral (Benlysta); Insurance Authorization (PA submission pending) Start: 02-04-2023 Telephone encounter Lynne shaw MD Work Phone: Rheumatology Comment on above: Appointment; Orders; Medication Authorization Start: 02-04-2023 End: 02-04-2023 [facility] Facility:[facility] Start: 02-04-2023 End: 02-04-2023 Telemedicine consultation with patient Lynne Ni MD Work Phone: [facility] Start: 01-28-2023 Refill Christie Hays Work Phone: Integrated Medicine Comment on above: Refill Request Start: 01-24-2023 Telephone encounter Lynne shaw MD Work Phone: Rheumatology Comment on above: Results Start: 01-22-2023 End: 01-22-[address] [facility] Facility:[facility] Start: 01-22-2023 End: 01-22-2023 Nursing evaluation of patient and report Cele Marshall Work Phone: Hematology/Oncology Comment on above: 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); Elevated sed rate Start: 01-17-2023 Orders Only Jose nelson MD Work Phone: Hematology/Oncology Comment on above: 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); High total serum IgM; Elevated sed rate Start: 01-01-2023 End: 01-01-2023 ambulatory iMsty Nelson MD Work Phone: Allergy Comment on above: High total serum IgM (Primary Dx); Low serum IgG for age; Current smoker Start: 01-01-2023 End: 01-01-2023 Telemedicine consultation with patient Misty Nelson MD Work Phone: [facility] Start: 12-29-2022 End: 12-29-2022 ambulatory MADELAINE FERRIS Facility:[facility] Start: 12-24-2022 Refill Christie Hays Work Phone: [facility] Comment on above: Refill Request Start: 12-18-2022 Telephone encounter Lidia Argueta RN Work Phone: Hematology/Oncology Comment on above: Care Coordination (a ppointment) Start: 12-17-2022 End: 12-18-2022 ambulatory WILMER DRIVER Facility:[facility] Start: 12-17-2022 End: 12-18-2022 ambulatory Wilmer Driver [employer] Work Phone: Hematology/Oncology Comment on above: 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); Chronic fatigue and malaise Start: 12-17-2022 End: 12-18-2022 Telemedicine consultation with patient Wilmer Driver [employer] Work Phone: [place] Start: 12-16-2022 Telephone encounter Pamella bernstein RN Work Phone: Hematology/Oncology Comment on above: Appointment Start: 12-08-2022 End: 12-08-2022 ambulatory Jose Najera MD Work Phone: Hematology/Oncology Comment on above: Test results Start: 12-08-2022 Telephone encounter Enma Osuna Hematology/Oncology Comment on above: Results Start: 11-22-2022 ambulatory Lynne Ni MD Work Phone: Rheumatology Comment on above: update Start: 11-19-2022 End: 11-19-2022 ambulatory MADELAINE M JOSY Facility:[facility] Start: 11-19-2022 End: 11-19-2022 Nursing evaluation of patient and report Cele Marshall Work Phone: Hematology/Oncology Comment on above: 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); Elevated sed rate Start: 10-29-2022 End: 10-29-2022 ambulatory CHRISTIEOSCAR PHAN Facility:[facility] Start: 10-22-2022 End: 10-22-2022 ambulatory MADELAINE Lynne JOSY Facility:[facility] Start: 10-22-2022 End: 10-22-2022 Nursing evaluation [...] syndrome Start: 10-15-2022 End: 10-15-2022 ambulatory MADELAINE Suarez JOSY Facility:[facility] Start: 09-24-2022 End: 09-25-2022 ambulatory MICKY PARNELL . Facility: Start: 09-24-2022 End: 09-24-2022 Nursing evaluation of patient and report Cele Marshall Work Phone: Hematology/Oncology Comment on above: 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); Elevated sed rate Start: 09-10-2022 End: 09-10-[address] MADELAINE FERRIS . Facility:[facility] Start: 09-08-2022 [facility] Comment on above: Compliance Adherence Start: 09-07-2022 End: 09-07-2022 Office outpatient visit [...] Start: 08-27-2022 End: 08-27-2022 ambulatory Wilmer Driver APRN.CORPORATE P[employer]OT Work Phone: Hematology/Oncology Comment on above: 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); Elevated sed rate; High total serum IgM; Chronic fatigue and malaise; JOSE RAFAEL (obstructive sleep apnea) Start: 08-27-2022 End: 08-27-2022 Patient encounter procedure Wilmer Driver APRN.CORPORATE P[employer]OT Work Phone: [place] Start: 08-19-2022 Telephone encounter Lynne shaw MD Work Phone: Rheumatology Comment on above: Results Start: 08-15-2022 ambulatory Lynne Ni MD Work Phone: Rheumatology Comment on above: update Start: 08-10-2022 Refill Christie Hays Work Phone: [facility] Comment on above: Refill Request Start: 07-27-2022 End: 07-27-2022 ambulatory Lexus Heck APRN.CORPORATE P[employer]OT Work Phone: Neurology Comment on above: JOSE RAFAEL (obstructive sle ep apnea) (Primary Dx) Start: 07-27-2022 End: 07-27-2022 Telemedicine consultation with patient Lexus Heck APRN.CORPORATE P[employer]OT Work Phone: [facility] Start: 07-24-2022 ambulatory Lynne Ni MD Work Phone: Rheumatology Comment on above: Blood work Start: 07-24-2022 Telephone encounter Jose hooker MD Work Phone: Hematology/Oncology Comment on above: Orders (Lab Orders E xpire Before Appointment) Start: 07-21-2022 ambulatory Lawanda Miranda MD Work Phone: [facility] Start: 07-21-2022 Patient encounter procedure Lawanda Miranda MD Work Phone: Neurology Comment on above: Appointment Start: 05-20-2022 End: 05-20-2022 Nursing evaluation of patient and report Il Nurse Dre Marshall Work Phone: Hematology/Oncology Comment [...] above: Cpap Start: 05-05-2022 Telephone encounter Jami [facility] Comment on above: PAP [...] Start: 03-31-2022 Refill Christie Hays Work Phone: [facility] Comment on above: Refill [...] serum IgM A1c Start: 03-18-2022 E-mail encounter hansa suarez caregiver Christie Phan MD Work Phone: [facility] Start: 03-18-2022 End: 03-18-2022 Patient encounter procedure Jose Najera MD Work Phone: [facility] Start: 03-12-2022 End: 03-13-[address] MADELAINE FERRIS . Facility:[facility] Start: 03-10-2022 End: 03-10-2022 ambulatory Tiffany Head DO Work Phone: Infectious Disease Comment on above: results Raised level of immu noglobulins (Primary Dx); Wound healing, delayed; Current smoker Start: 03-10-2022 E-mail encounter hansa suarez caregiver Tiffanyasif Kelseyjuancarlos LIVE Work Phone: [facility] Start: 03-10-2022 End: 03-10-2022 Telemedicine consultation with patient Misty Leslie LEE Work Phone: [facility] Start: 03-09-2022 End: 03-10-2022 ambulatory GAY ENCISO Facility: Start: 03-09-2022 End: 03-09-2022 Office consultation new/estab patient 80 min Christie Phan MD Work Phone: [facility] Comment on above: Obesity, Class II, B VA 35-39.9 (Primary Dx); Somnolence, daytime; Chronic fatigue [...] encounter procedure Jose Najera MD Work Phone: [facility] Start: 03-02-2022 Chart abstracting Jose waterman MD [...] with patient Tiffany Head DO Work Phone: [facility] Start: 02-14-2022 End: 02-15-[address] MADELAINE FERRIS . Facility:[facility] Start: 11-26-2021 End: 11-26-2021 ambulatory Mirela Kelsey Other [employer] Other Start: 11-26-2021 Office outpatient vi sit [...] 10-15-2021 End: 10-15-2021 ambulatory Mirela Kelsey Other [employer] Other Start: 10-15-2021 Office outpatient vi sit 25 minutes Mirela LOPEZ Infectious Disease Start: 10-03-2021 End: [address] MIRELA KELSEY Facility:[facility] Start: 09-18-2021 End: 09-18-2021 ambulatory Mirela Kelsey Other [employer] Other Start: 09-18-2021 Telephone encounter Mirela Kelsey FP [facility] Infectious Disease Start: 09-11-2021 End: 09-11-2021 ambulatory Mirela Kelsey Other [place] [employer] Other Start: 09-11-2021 Office outpatient ne w 45 minutes Mirela Kelsey [facility] Infect[facility] Start: 10-07-2020 End: 10-08-2020 ambulatory AMIVY HOLLEY [facility] Start: 10-07-2020 End: 10-07-2020 Subsequent hospital visit by physician [facility] [employer] Jameson Melendez [facility] [employer] Comment on above: Arrived Start: 09-17-2018 End: 09-17-2018 Patient encounter procedure Bettina Jessy Facility:[facility] Start: 09-14-2018 End: 09-17-2018 Patient encounter procedure [facility]CTOR MANUEL [facility] Procedures Date Procedure Procedure Detail Performing Clinician Start: 07-13-2023 ECG 12-LEAD MICHELLE NAGE L Start: 07-13-2023 Ecg routine ecg w/le ast 12 lds w/i&r Lois Holm MD Work Phone: Start: 06-09-2023 ECG 12-LEAD MICHELLE NAGE L Start: 06-09-2023 Ecg routine ecg w/le ast 12 lds w/i&r Michelle Britton [employer] INST[employer]ER[employer]ATE [employer] Work Phone: Start: 10-07-2020 End: 10-07-2020 Cardiac [...] Start: 03-17-2025 Diabetes mellitus screening Diabetes Screening [facility] Start: 07-13-2024 End: 07-13-2024 Patient encounter procedure 07/13/2024 9:20 AM EST Office Visit [facility] [address] [place] [address] Lois Holm MD [address] [facility] [address] [place] [address] [facility] Start: 01-24-2024 Influenza vaccination Influenza Vaccine (#1) [facility] Comment on above: Postponed from 01/22/2023 (Patient Refus ed) Start: 01-23-2024 Influenza vaccination Influenza Vaccine (Season Ended) [facility] Start: 12-10-2023 End: 12-10-2023 Follow-up encounter 12/10/2023 10:45 AM EDT Visit (SP) Office Hematology/Oncology [address] [place] [address] Jose Najera MD [address] [place] [address] 13 week follow up, labs 1 week before Hematology/Oncology Comment on above: 13 week follow up, labs 1 week before Start: 12-04-2023 End: 09-03-2024 25-hydroxyvitamin D3 [Mass/volume] in Serum or Plasma VITAMIN D 25 HYDROXY Lab Routine Vitamin D deficiency Expected: 12/04/2023 (Approximate), Expires: 09/03/2024 [facility] Work Phone: Comment on above: Expected: 12/04/2023 (Approximate), Expi res: 09/03/2024 Start: 12-04-2023 End: 09-03-2024 C reactive protein [Mass/volume] in Serum or Plasma C-REACTIVE PROTEIN Lab Routine Elevated sed rate Elevated C-reactive protein (CRP) Expected: 12/04/2023 (Approximate), Expires: 09/03/2024 [facility] Work Phone: Comment on above: Expected: 12/04/2023 (Approximate), Expi res: 09/03/2024 Start: 12-04-2023 End: 09-03-2024 CBC panel - Blood by Automated count COMPLETE BLOOD COUNT Lab Routine Anemia of chronic disease Expected: 12/04/2023 (Approximate), Expires: 09/03/2024 [facility] Work Phone: Comment on above: Expected: 12/04/2023 (Approximate), Expi res: 09/03/2024 Start: 12-04-2023 End: 09-03-2024 Comprehensive metabolic 2000 panel - Serum or Plasma COMPREHENSIVE METABOLIC PANEL Lab Routine Elevated LFTs Expected: 12/04/2023 (Approximate), Expires: 09/03/2024 [facility] Work Phone: Comment on above: Expected: 12/04/2023 (Approximate), Expi res: 09/03/2024 Start: 12-04-2023 End: 09-03-2024 Erythrocyte sedimentation rate SEDIMENTATION RATE, WESTERGREN Lab Routine Elevated sed rate Elevated C-reactive protein (CRP) Expected: 12/04/2023 (Approximate), Expires: 09/03/2024 [facility] Work Phone: Comment on above: Expected: 12/04/2023 (Approximate), Expi res: 09/03/2024 Start: 12-03-2023 End: 12-03-2023 Nursing evaluation of patient and report 12/03/2023 11:00 AM EDT Nurse Visit Hematology/Oncology [address] [place] [address] Cele Marshall Nurse Dre [address] [place] [address] b12 Hematology/Oncology Comment on above: b12 Start: 12-03-2023 End: 12-03-2023 Patient encounter procedure 12/03/2023 10:45 AM EDT Office Visit [facility] [address] [place] [address] [place] [address] lab [facility] Comment on above: lab Start: 12-02-2023 End: 09-08-2024 CBC W Auto Differential panel - Blood COMPLETE BLOOD COUNT AND DIFFERENTIAL Lab Routine Megaloblastic anemia due to vitamin B12 deficiency High total serum IgM Expected: 12/02/2023 (Approximate), Expires: 09/08/2024 [facility] Work Phone: Comment on above: Expected: 12/02/2023 (Approximate), Expi res: 09/08/2024 Start: 12-02-2023 End: 09-08-2024 Cobalamin (Vitamin B12) [Mass/volume] in Serum or Plasma VITAMIN B12 Lab Routine Megaloblastic anemia due to vitamin B12 deficiency High total serum IgM Expected: 12/02/2023 (Approximate), Expires: 09/08/2024 [facility] Work Phone: Comment on above: Expected: 12/02/2023 (Approximate), Expi res: 09/08/2024 Start: 12-02-2023 End: 09-08-2024 Comprehensive metabolic 2000 panel - Serum or Plasma COMPREHENSIVE METABOLIC PANEL Lab Routine Megaloblastic anemia due to vitamin B12 deficiency High total serum IgM Expected: 12/02/2023 (Approximate), Expires: 09/08/2024 [facility] Work Phone: Comment on above: Expected: 12/02/2023 (Approximate), Expi res: 09/08/2024 Start: 12-02-2023 End: 03-02-2024 Erythrocyte sedimentation rate SEDIMENTATION RATE, WESTERGREN Lab Routine Megaloblastic anemia due to vitamin B12 deficiency High total serum IgM Expected: 12/02/2023 (Approximate), Expires: 03/02/2024 [facility] Work Phone: Comment on above: Expected: 12/02/2023 (Approximate), Expi res: 03/02/2024 Start: 12-02-2023 End: 09-08-2024 Ferritin [Mass/volume] in Serum or Plasma FERRITIN Lab Routine Megaloblastic anemia due to vitamin B12 deficiency High total serum IgM Expected: 12/02/2023 (Approximate), Expires: 09/08/2024 [facility] Work Phone: Comment on above: Expected: 12/02/2023 (Approximate), Expi res: 09/08/2024 Start: 12-02-2023 End: 09-08-2024 Folate [Mass/volume] in Serum or Plasma FOLATE, SERUM Lab Routine Megaloblastic anemia due to vitamin B12 deficiency High total serum IgM Expected: 12/02/2023 (Approximate), Expires: 09/08/2024 [facility] Work Phone: Comment on above: Expected: 12/02/2023 (Approximate), Expi res: 09/08/2024 Start: 12-02-2023 End: 03-02-2024 IgA [Mass/volume] in Serum or Plasma IMMUNOGLOBULIN A Lab Routine Megaloblastic anemia due to vitamin B12 deficiency High total serum IgM Expected: 12/02/2023 (Approximate), Expires: 03/02/2024 [facility] Work Phone: Comment on above: Expected: 12/02/2023 (Approximate), Expi res: 03/02/2024 Start: 12-02-2023 End: 03-02-2024 IgE [Units/volume] in Serum or Plasma IMMUNOGLOBULIN E Lab Routine Megaloblastic anemia due to vitamin B12 deficiency High total serum IgM Expected: 12/02/2023 (Approximate), Expires: 03/02/2024 [facility] Work Phone: Comment on above: Expected: 12/02/2023 (Approximate), Expi res: 03/02/2024 Start: 12-02-2023 End: 03-02-2024 IgG [Mass/volume] in Serum or Plasma IMMUNOGLOBULIN G Lab Routine Megaloblastic anemia due to vitamin B12 deficiency High total serum IgM Expected: 12/02/2023 (Approximate), Expires: 03/02/2024 [facility] Work Phone: Comment on above: Expected: 12/02/2023 (Approximate), Expi res: 03/02/2024 Start: 12-02-2023 End: 03-02-2024 IgM [Mass/volume] in Serum or Plasma IMMUNOGLOBULIN M Lab Routine Megaloblastic anemia due to vitamin B12 deficiency High total serum IgM Expected: 12/02/2023 (Approximate), Expires: 03/02/2024 [facility] Work Phone: Comment on above: Expected: 12/02/2023 (Approximate), Expi res: 03/02/2024 Start: 12-02-2023 End: 09-08-2024 Iron and Iron binding capacity panel - Serum or Plasma IRON AND TIBC Lab Routine Megaloblastic anemia due to vitamin B12 deficiency High total serum IgM Expected: 12/02/2023 (Approximate), Expires: 09/08/2024 [facility] Work Phone: Comment on above: Expected: 12/02/2023 (Approximate), Expi res: 09/08/2024 Start: 10-29-2023 End: 10-29-2023 Nursing evaluation of patient and report 10/29/2023 11:00 AM EDT Nurse Visit Hematology/Oncology [address] [address] Cele Marshall Nurse Dre [address] [address] b12 Hematology/Oncology Comment on above: b12 Start: 10-12-2023 End: 10-12-2023 Specialty Pharmacy 10/12/2023 10:00 AM EDT Specialty Pharmacy [facility] [id number] [place] [address] Pharmacist, [facility] [address] [place] [address] [place] [address] refill - benlysta-Thursdays- pa exp: 02/04/24- [facility] Comment on above: refill - benlysta-Thursdays- pa exp: 01/22 08/14- Start: 10-05-2023 End: 10-05-2023 Patient encounter procedure 10/05/2023 8:00 AM EDT [facility] [address] [place] [address] Lynne Ni MD [address] [facility] [place], [place] [id number] 6 mo f/u for [facility] Rhe[facility]ology Comment on above: 6 mo f/u for Lupus Start: 10-01-2023 End: 10-01-2023 Nursing evaluation of patient and report 10/01/2023 11:00 AM EDT Nurse Visit Hematology/Oncology [address] [address] Cele Marshall Nurse Dre [address] [place] [address] b12 Hematology/Oncology Comment on above: b12 Start: 09-16-2023 End: 09-16-2023 Specialty Pharmacy 09/16/2023 10:00 AM EDT Specialty Pharmacy [facility] [address] [place], [place] [address] [id number] Pharmacist, Specialty[address] [place] [address] refill - benlysta-Thursdays- pa exp: 02/04/24-lvm [facility] Comment on above: refill - benlysta-Thursdays- pa exp: 01/22 08/14-lvm Start: 09-13-2023 End: 09-13-2023 Patient encounter procedure 09/13/2023 9:00 AM EDT Office Visit [facility] [address] [place] [address] Juan Luis Richardson MD [address] [place] [address] [facility] Start: 07-19-2023 End: 07-19-2023 Patient encounter procedure [facility] Start: 07-15-2023 End: 07-15-2023 Patient encounter procedure 07/15/2023 10:50 AM EST Office Visit [facility] [address] [place] [address] Bernabe English MD [address] [place] [address] [facility] Start: 07-06-2023 End: 07-06-2023 Patient encounter procedure 07/06/2023 2:30 PM EST Office Visit [facility] [address] [facility] [address] [place] [phone] Juan Luis Richardson MD [address] [facility] [address] [place] [address] [facility] [address] Start: 07-06-2023 End: 07-06-2024 Protein electrophoresis, serum Protein electrophoresis, serum Lab Routine Autoimmune disease (CMS/HCC) Autonomic dysfunction Expected: 07/06/2023 (Approximate), Expires: 07/06/2024 [facility] Work Phone: Comment on above: Expected: 07/06/2023 (Approximate), Expi res: 07/06/2024 Start: 07-06-2023 End: 07-06-2024 Protein electrophoresis, urine Protein electrophoresis, urine Lab Routine Autoimmune disease (CMS/HCC) Autonomic dysfunction Expected: 07/06/2023 (Approximate), Expires: 07/06/2024 [facility] Comment on above: Expected: 07/06/2023 (Approximate), Expi res: 07/06/2024 Start: 06-09-2023 End: 06-09-2024 Holter monitor study Holter Or Event Tax Evaluator Cardiac Services Routine Irregular heart rate Expected: 06/09/2023 (Approximate), Expires: 06/09/2024 [facility] Work Phone: Comment on above: Expected: 06/09/2023 (Approximate), Expi res: 06/09/2024 Start: 06-09-2023 End: 06-09-2024 Lipid 1996 panel - Serum or Plasma Lipid Panel Lab Routine Primary hypertension Expected: 06/09/2023 (Approximate), Expires: 06/09/2024 [facility] Work Phone: Comment on above: Expected: 06/09/2023 (Approximate), Expi res: 06/09/2024 Start: 06-09-2023 End: 06-09-2024 Thyrotropin [Units/volume] in Serum or Plasma Thyroid Stimulating Hormone Lab Routine Irregular heart rate Expected: 06/09/2023 (Approximate), Expires: 06/09/2024 [facility] Work Phone: Comment on above: Expected: 06/09/2023 (Approximate), Expi res: 06/09/2024 Start: 06-09-2023 End: 06-09-2024 Thyroxine (T4) free [Mass/volume] in Serum or Plasma Thyroxine, Free Lab Routine Irregular heart rate Expected: 06/09/2023 (Approximate), Expires: 06/09/2024 [facility] Work Phone: Comment on above: Expected: 06/09/2023 (Approximate), Expi res: 06/09/2024 Start: 06-09-2023 End: 06-09-2025 US Heart Transthoracic Transthoracic Echo (TTE) Complete Echocardiography Routine Irregular heart rate Obstructive sleep apnea syndrome Expected: 06/09/2023 (Approximate), Expires: 06/09/2025 [facility] Service Area Work Phone: Comment on above: Expected: 06/09/2023 (Approximate), Expi res: 06/09/2025 Start: 04-25-2023 End: 01-25-2024 25-hydroxyvitamin D3 [Mass/volume] in Serum or Plasma VITAMIN D 25 HYDROXY Lab Routine Vitamin D deficiency Expected: 04/25/2023 (Approximate), Expires: 01/25/2024 [facility] Work Phone: Comment on above: Expected: 04/25/2023 (Approximate), Expi res: 01/25/2024 Start: 04-25-2023 End: 01-25-2024 C reactive protein [Mass/volume] in Serum or Plasma C-REACTIVE PROTEIN (CRP) Lab Routine Elevated sed rate Elevated C-reactive protein (CRP) Expected: 04/25/2023 (Approximate), Expires: 01/25/2024 [facility] Work Phone: Comment on above: Expected: 04/25/2023 (Approximate), Expi res: 01/25/2024 Start: 04-25-2023 End: 01-25-2024 CBC panel - Blood by Automated count CBC Lab Routine Anemia of chronic disease Expected: 04/25/2023 (Approximate), Expires: 01/25/2024 [facility] Work Phone: Comment on above: Expected: 04/25/2023 (Approximate), Expi res: 01/25/2024 Start: 04-25-2023 End: 01-25-2024 Comprehensive metabolic 2000 panel - Serum or Plasma COMP METABOLIC PANEL Lab Routine Elevated LFTs Expected: 04/25/2023 (Approximate), Expires: 01/25/2024 [facility] Work Phone: Comment on above: Expected: 04/25/2023 (Approximate), Expi res: 01/25/2024 Start: 04-25-2023 End: 01-25-2024 Erythrocyte sedimentation rate SED RATE WESTERGREN Lab Routine Elevated sed rate Elevated C-reactive protein (CRP) Expected: 04/25/2023 (Approximate), Expires: 01/25/2024 [facility] Work Phone: Comment on above: Expected: 04/25/2023 (Approximate), Expi res: 01/25/2024 Start: 04-20-2023 COVID-19 Vaccine (4 - Pfizer risk series) COVID-19 Vaccine (4 - Pfizer risk series) [facility] Start: 04-20-2023 Covid-19 Vaccine () Covid-19 Vaccine () [facility] Start: 04-20-2023 Covid-19 Vaccine () Covid-19 Vaccine () [facility] Start: 04-16-2023 End: 02-20-2024 CBC W Auto Differential panel - Blood CBC + DIFF Lab Routine Megaloblastic anemia due to vitamin B12 deficiency Elevated sed rate Chronic fatigue and malaise High total serum IgM JOSE RAFAEL (obstructive sleep apnea) Expected: 04/16/2023 (Approximate), Expires: 02/20/2024 [facility] Work Phone: Comment on above: Expected: 04/16/2023 (Approximate), Expi res: 02/20/2024 Start: 04-16-2023 End: 02-20-2024 Cobalamin (Vitamin B12) [Mass/volume] in Serum or Plasma VITAMIN B12 BLOOD Lab Routine Megaloblastic anemia due to vitamin B12 deficiency Elevated sed rate Chronic fatigue and malaise High total serum IgM JOSE RAFAEL (obstructive sleep apnea) Expected: 04/16/2023 (Approximate), Expires: 02/20/2024 [facility] Work Phone: Comment on above: Expected: 04/16/2023 (Approximate), Expi res: 02/20/2024 Start: 04-16-2023 End: 02-20-2024 Comprehensive metabolic 2000 panel - Serum or Plasma COMP METABOLIC PANEL Lab Routine Megaloblastic anemia due to vitamin B12 deficiency Elevated sed rate Chronic fatigue and malaise High total serum IgM JOSE RAFAEL (obstructive sleep apnea) Expected: 04/16/2023 (Approximate), Expires: 02/20/2024 [facility] Work Phone: Comment on above: Expected: 04/16/2023 (Approximate), Expi res: 02/20/2024 Start: 04-16-2023 End: 02-20-2024 Ferritin [Mass/volume] in Serum or Plasma FERRITIN BLD Lab Routine Megaloblastic anemia due to vitamin B12 deficiency Elevated sed rate Chronic fatigue and malaise High total serum IgM JOSE RAFAEL (obstructive sleep apnea) Expected: 04/16/2023 (Approximate), Expires: 02/20/2024 [facility] Work Phone: Comment on above: Expected: 04/16/2023 (Approximate), Expi res: 02/20/2024 Start: 04-16-2023 End: 02-20-2024 Folate [Mass/volume] in Serum or Plasma FOLATE SERUM Lab Routine Megaloblastic anemia due to vitamin B12 deficiency Elevated sed rate Chronic fatigue and malaise High total serum IgM JOSE RAFAEL (obstructive sleep apnea) Expected: 04/16/2023 (Approximate), Expires: 02/20/2024 [facility] Work Phone: Comment on above: Expected: 04/16/2023 (Approximate), Expi res: 02/20/2024 Start: 04-16-2023 End: 02-20-2024 Iron and Iron binding capacity panel - Serum or Plasma IRON + TIBC Lab Routine Megaloblastic anemia due to vitamin B12 deficiency Elevated sed rate Chronic fatigue and malaise High total serum IgM JOSE RAFAEL (obstructive sleep apnea) Expected: 04/16/2023 (Approximate), Expires: 02/20/2024 [facility] Work Phone: Comment on above: Expected: 04/16/2023 (Approximate), Expi res: 02/20/2024 Start: 03-17-2023 Diabetes mellitus screening Diabetes Screening [facility] Start: 03-10-2023 End: 06-09-2023 Insulin [Units/volume] in Serum or Plasma INSULIN ASSAY BLOOD Lab Routine Insulin resistance, unspecified Expected: 03/10/2023, Expires: 06/09/2023 [facility] Work Phone: Comment on above: Expected: 03/10/2023, Expires: 4 Start: 03-10-2023 End: 06-09-2023 INSULIN ANTIBODY BLD INSULIN ANTIBODY BLD Lab Routine Insulin resistance, unspecified Expected: 03/10/2023, Expires: 06/09/2023 [facility] Work Phone: Comment on above: Expected: 03/10/2023, Expires: 4 Start: 02-11-2023 End: 02-08-2024 [id number] [Mass/volume] in Serum or Plasma B2 MICROGLOBULIN B Lab Routine Megaloblastic anemia due to vitamin B12 deficiency High total serum IgM Elevated sed rate Expected: 02/11/2023 (Approximate), Expires: 02/08/2024 [facility] Work Phone: Comment on above: Expected: 02/11/2023 (Approximate), Expi res: 02/08/2024 Start: 02-11-2023 End: 02-08-2024 Calcium.ionized [Moles/volume] in Blood CALCIUM IONIZED BLOOD Lab Routine Megaloblastic anemia due to vitamin B12 deficiency High total serum IgM Elevated sed rate Expected: 02/11/2023 (Approximate), Expires: 02/08/2024 [facility] Work Phone: Comment on above: Expected: 02/11/2023 (Approximate), Expi res: 02/08/2024 Start: 02-11-2023 End: 02-08-2024 CBC W Auto Differential panel - Blood CBC + DIFF Lab Routine Megaloblastic anemia due to vitamin B12 deficiency High total serum IgM Elevated sed rate Expected: 02/11/2023 (Approximate), Expires: 02/08/2024 [facility] Work Phone: Comment on above: Expected: 02/11/2023 (Approximate), Expi res: 02/08/2024 Start: 02-11-2023 End: 02-08-2024 Cobalamin (Vitamin B12) [Mass/volume] in Serum or Plasma VITAMIN B12 BLOOD Lab Routine Megaloblastic anemia due to vitamin B12 deficiency High total serum IgM Elevated sed rate Expected: 02/11/2023 (Approximate), Expires: 02/08/2024 [facility] Work Phone: Comment on above: Expected: 02/11/2023 (Approximate), Expi res: 02/08/2024 Start: 02-11-2023 End: 02-08-2024 Comprehensive metabolic 2000 panel - Serum or Plasma COMP METABOLIC PANEL Lab Routine Megaloblastic anemia due to vitamin B12 deficiency High total serum IgM Elevated sed rate Expected: 02/11/2023 (Approximate), Expires: 02/08/2024 [facility] Work Phone: Comment on above: Expected: 02/11/2023 (Approximate), Expi res: 02/08/2024 Start: 02-11-2023 End: 02-08-2024 Ferritin [Mass/volume] in Serum or Plasma FERRITIN BLD Lab Routine Megaloblastic anemia due to vitamin B12 deficiency High total serum IgM Elevated sed rate Expected: 02/11/2023 (Approximate), Expires: 02/08/2024 [facility] Work Phone: Comment on above: Expected: 02/11/2023 (Approximate), Expi res: 02/08/2024 Start: 02-11-2023 End: 02-08-2024 Folate [Mass/volume] in Serum or Plasma FOLATE SERUM Lab Routine Megaloblastic anemia due to vitamin B12 deficiency High total serum IgM Elevated sed rate Expected: 02/11/2023 (Approximate), Expires: 02/08/2024 [facility] Work Phone: Comment on above: Expected: 02/11/2023 (Approximate), Expi res: 02/08/2024 Start: 02-11-2023 End: 02-08-2024 Iron and Iron binding capacity panel - Serum or Plasma IRON + TIBC Lab Routine Megaloblastic anemia due to vitamin B12 deficiency High total serum IgM Elevated sed rate Expected: 02/11/2023 (Approximate), Expires: 02/08/2024 [facility] Work Phone: Comment on above: Expected: 02/11/2023 (Approximate), Expi res: 02/08/2024 Start: 02-11-2023 End: 04-13-2023 KAPPA/FARMER,FREE,SER KAPPA/FARMER,FREE,SER Lab Routine Megaloblastic anemia due to vitamin B12 deficiency High total serum IgM Elevated sed rate Expected: 02/11/2023 (Approximate), Expires: 04/13/2023 [facility] Work Phone: Comment on above: Expected: 02/11/2023 (Approximate), Expi res: 04/13/2023 Start: 02-11-2023 End: 02-08-2024 Lactate dehydrogenase [Enzymatic activity/volume] in Serum or Plasma LD LACTATE DEHYDRO Lab Routine Megaloblastic anemia due to vitamin B12 deficiency High total serum IgM Elevated sed rate Expected: 02/11/2023 (Approximate), Expires: 02/08/2024 [facility] Work Phone: Comment on above: Expected: 02/11/2023 (Approximate), Expi res: 02/08/2024 Start: 02-11-2023 End: 02-08-2024 MONOCLONAL PROTEIN, SERUM (BLOOD) MONOCLONAL PROTEIN, SERUM (BLOOD) Lab Routine Megaloblastic anemia due to vitamin B12 deficiency High total serum IgM Elevated sed rate Expected: 02/11/2023 (Approximate), Expires: 02/08/2024 [facility] Work Phone: Comment on above: Expected: 02/11/2023 (Approximate), Expi res: 02/08/2024 Start: 02-11-2023 End: 02-08-2024 Phosphate [Mass/volume] in Serum or Plasma PHOSPHORUS INORGANIC Lab Routine Megaloblastic anemia due to vitamin B12 deficiency High total serum IgM Elevated sed rate Expected: 02/11/2023 (Approximate), Expires: 02/08/2024 [facility] Work Phone: Comment on above: Expected: 02/11/2023 (Approximate), Expi res: 02/08/2024 Start: 02-11-2023 End: 02-08-2024 PROTEIN ELECTROPHORESIS SERUM W/INTERP PROTEIN ELECTROPHORESIS SERUM W/INTERP Lab Routine Megaloblastic anemia due to vitamin B12 deficiency High total serum IgM Elevated sed rate Expected: 02/11/2023 (Approximate), Expires: 02/08/2024 [facility] Work Phone: Comment on above: Expected: 02/11/2023 (Approximate), Expi res: 02/08/2024 Start: 02-11-2023 End: 02-08-2024 Urate [Mass/volume] in Serum or Plasma URIC ACID BLOOD Lab Routine Megaloblastic anemia due to vitamin B12 deficiency High total serum IgM Elevated sed rate Expected: 02/11/2023 (Approximate), Expires: 02/08/2024 [facility] Work Phone: Comment on above: Expected: 02/11/2023 (Approximate), Expi res: 02/08/2024 Start: 01-22-2023 Influenza vaccination [facility] Start: 12-17-2022 End: 10-23-2023 CBC W Auto Differential panel - Blood CBC + DIFF Lab Routine Megaloblastic anemia due to vitamin B12 deficiency Expected: 12/17/2022 (Approximate), Expires: 10/23/2023 [facility] Work Phone: Comment on above: Expected: 12/17/2022 (Approximate), Expi res: 10/23/2023 Start: 12-17-2022 End: 10-23-2023 Cobalamin (Vitamin B12) [Mass/volume] in Serum or Plasma VITAMIN B12 BLOOD Lab Routine Megaloblastic anemia due to vitamin B12 deficiency Expected: 12/17/2022 (Approximate), Expires: 10/23/2023 [facility] Work Phone: Comment on above: Expected: 12/17/2022 (Approximate), Expi res: 10/23/2023 Start: 12-17-2022 End: 10-23-2023 Comprehensive metabolic 2000 panel - Serum or Plasma COMP METABOLIC PANEL Lab Routine Megaloblastic anemia due to vitamin B12 deficiency Expected: 12/17/2022 (Approximate), Expires: 10/23/2023 [facility] Work Phone: Comment on above: Expected: 12/17/2022 (Approximate), Expi res: 10/23/2023 Start: 12-17-2022 End: 10-23-2023 Ferritin [Mass/volume] in Serum or Plasma FERRITIN BLD Lab Routine Megaloblastic anemia due to vitamin B12 deficiency Expected: 12/17/2022 (Approximate), Expires: 10/23/2023 [facility] Work Phone: Comment on above: Expected: 12/17/2022 (Approximate), Expi res: 10/23/2023 Start: 12-17-2022 End: 10-23-2023 Folate [Mass/volume] in Serum or Plasma FOLATE SERUM Lab Routine Megaloblastic anemia due to vitamin B12 deficiency Expected: 12/17/2022 (Approximate), Expires: 10/23/2023 [facility] Work Phone: Comment on above: Expected: 12/17/2022 (Approximate), Expi res: 10/23/2023 Start: 12-17-2022 End: 10-23-2023 Iron and Iron binding capacity panel - Serum or Plasma IRON + TIBC Lab Routine Megaloblastic anemia due to vitamin B12 deficiency Expected: 12/17/2022 (Approximate), Expires: 10/23/2023 [facility] Work Phone: Comment on above: Expected: 12/17/2022 (Approximate), Expi res: 10/23/2023 Start: 10-23-2022 End: 12-23-2022 25-hydroxyvitamin D3 [Mass/volume] in Serum or Plasma VITAMIN D 25 HYDROXY Lab Routine Megaloblastic anemia due to vitamin B12 deficiency Elevated sed rate High total serum IgM Chronic fatigue and malaise JOSE RAFAEL (obstructive sleep apnea) Expected: 10/23/2022, Expires: 12/23/2022 [facility] Work Phone: Comment on above: Expected: 10/23/2022, Expires: 3 Start: 10-23-2022 End: 12-23-2022 C reactive protein [Mass/volume] in Serum or Plasma C-REACTIVE PROTEIN (CRP) Lab Routine Megaloblastic anemia due to vitamin B12 deficiency Elevated sed rate High total serum IgM Chronic fatigue and malaise JOSE RAFAEL (obstructive sleep apnea) Expected: 10/23/2022, Expires: 12/23/2022 [facility] Work Phone: Comment on above: Expected: 10/23/2022, Expires: 3 Start: 10-23-2022 End: 12-23-2022 CBC W Auto Differential panel - Blood CBC + DIFF Lab Routine Megaloblastic anemia due to vitamin B12 deficiency Elevated sed rate High total serum IgM Chronic fatigue and malaise JOSE RAFAEL (obstructive sleep apnea) Expected: 10/23/2022, Expires: 12/23/2022 [facility] Work Phone: Comment on above: Expected: 10/23/2022, Expires: 3 Start: 10-23-2022 End: 12-23-2022 Cobalamin (Vitamin B12) [Mass/volume] in Serum or Plasma VITAMIN B12 BLOOD Lab Routine Megaloblastic anemia due to vitamin B12 deficiency Elevated sed rate High total serum IgM Chronic fatigue and malaise JOSE RAFAEL (obstructive sleep apnea) Expected: 10/23/2022, Expires: 12/23/2022 [facility] Work Phone: Comment on above: Expected: 10/23/2022, Expires: 3 Start: 10-23-2022 End: 12-23-2022 Comprehensive metabolic 2000 panel - Serum or Plasma COMP METABOLIC PANEL Lab Routine Megaloblastic anemia due to vitamin B12 deficiency Elevated sed rate High total serum IgM Chronic fatigue and malaise JOSE RAFAEL (obstructive sleep apnea) Expected: 10/23/2022, Expires: 12/23/2022 [facility] Work Phone: Comment on above: Expected: 10/23/2022, Expires: 3 Start: 10-23-2022 End: 12-23-2022 Erythrocyte sedimentation rate SED RATE WESTERGREN Lab Routine Megaloblastic anemia due to vitamin B12 deficiency Elevated sed rate High total serum IgM Chronic fatigue and malaise JOSE RAFAEL (obstructive sleep apnea) Expected: 10/23/2022, Expires: 12/23/2022 [facility] Work Phone: Comment on above: Expected: 10/23/2022, Expires: 3 Start: 10-23-2022 End: 12-23-2022 Lactate dehydrogenase [Enzymatic activity/volume] in Serum or Plasma LD LACTATE DEHYDRO Lab Routine Megaloblastic anemia due to vitamin B12 deficiency Elevated sed rate High total serum IgM Chronic fatigue and malaise JOSE RAFAEL (obstructive sleep apnea) Expected: 10/23/2022, Expires: 12/23/2022 [facility] Work Phone: Comment on above: Expected: 10/23/2022, Expires: 3 Start: 10-23-2022 End: 12-23-2022 MONOCLONAL PROTEIN, SERUM (BLOOD) MONOCLONAL PROTEIN, SERUM (BLOOD) Lab Routine Megaloblastic anemia due to vitamin B12 deficiency Elevated sed rate High total serum IgM Chronic fatigue and malaise JOSE RAFAEL (obstructive sleep apnea) Expected: 10/23/2022, Expires: 12/23/2022 [facility] Work Phone: Comment on above: Expected: 10/23/2022, Expires: Start: 10-23-2022 End: 12-23-2022 PROT ELECT SERUM WITH DANA AND INTERP PROT ELECT SERUM WITH DANA AND INTERP Lab Routine Megaloblastic anemia due to vitamin B12 deficiency Elevated sed rate High total serum IgM Chronic fatigue and malaise JOSE RAFAEL (obstructive sleep apnea) Expected: 10/23/2022, Expires: 12/23/2022 [facility] Work Phone: Comment on above: Expected: 10/23/2022, Expires: Start: 09-19-2022 End: 08-20-2023 CBC panel - Blood by Automated count CBC Lab Routine Anemia of chronic disease Expected: 09/19/2022 (Approximate), Expires: 08/20/2023 [facility] Work Phone: Comment on above: Expected: 09/19/2022 (Approximate), Expi res: 08/20/2023 Start: 09-19-2022 End: 08-20-2023 Comprehensive metabolic 2000 panel - Serum or Plasma COMP METABOLIC PANEL Lab Routine Elevated LFTs Expected: 09/19/2022 (Approximate), Expires: 08/20/2023 [facility] Work Phone: Comment on above: Expected: 09/19/2022 (Approximate), Expi res: 08/20/2023 Start: 09-19-2022 End: 11-19-2022 TPMT PHENOTYPE/ENZYME ACTIVITY TPMT PHENOTYPE/ENZYME ACTIVITY Lab Routine 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 Expected: 09/19/2022 (Approximate), Expires: 11/19/2022 [facility] Work Phone: Comment on above: Expected: 09/19/2022 (Approximate), Expi res: 11/19/2022 Start: 08-28-2022 End: 10-28-2022 25-hydroxyvitamin D3 [Mass/volume] in Serum or Plasma VITAMIN D 25 HYDROXY Lab Routine Megaloblastic anemia due to vitamin B12 deficiency Elevated sed rate High total serum IgM Chronic fatigue and malaise Expected: 08/28/2022 (Approximate), Expires: 10/28/2022 [facility] Work Phone: Comment on above: Expected: 08/28/2022 (Approximate), Expi res: 10/28/2022 Start: 08-28-2022 End: 07-26-2023 [id number] [Mass/volume] in Serum or Plasma B2 MICROGLOBULIN B Lab Routine Megaloblastic anemia due to vitamin B12 deficiency Elevated sed rate High total serum IgM Chronic fatigue and malaise Expected: 08/28/2022 (Approximate), Expires: 07/26/2023 [facility] Work Phone: Comment on above: Expected: 08/28/2022 (Approximate), Expi res: 07/26/2023 Start: 08-28-2022 End: 10-28-2022 C reactive protein [Mass/volume] in Serum or Plasma C-REACTIVE PROTEIN (CRP) Lab Routine Megaloblastic anemia due to vitamin B12 deficiency Elevated sed rate High total serum IgM Chronic fatigue and malaise Expected: 08/28/2022 (Approximate), Expires: 10/28/2022 [facility] Work Phone: Comment on above: Expected: 08/28/2022 (Approximate), Expi res: 10/28/2022 Start: 08-28-2022 End: 07-26-2023 Calcium.ionized [Moles/volume] in Blood CALCIUM IONIZED BLOOD Lab Routine Megaloblastic anemia due to vitamin B12 deficiency Elevated sed rate High total serum IgM Chronic fatigue and malaise Expected: 08/28/2022 (Approximate), Expires: 07/26/2023 [facility] Work Phone: Comment on above: Expected: 08/28/2022 (Approximate), Expi res: 07/26/2023 Start: 08-28-2022 End: 07-26-2023 CBC W Auto Differential panel - Blood CBC + DIFF Lab Routine Megaloblastic anemia due to vitamin B12 deficiency Elevated sed rate High total serum IgM Chronic fatigue and malaise Expected: 08/28/2022 (Approximate), Expires: 07/26/2023 [facility] Work Phone: Comment on above: Expected: 08/28/2022 (Approximate), Expi res: 07/26/2023 Start: 08-28-2022 End: 10-28-2022 Cobalamin (Vitamin B12) [Mass/volume] in Serum or Plasma VITAMIN B12 BLOOD Lab Routine Megaloblastic anemia due to vitamin B12 deficiency Elevated sed rate High total serum IgM Chronic fatigue and malaise Expected: 08/28/2022 (Approximate), Expires: 10/28/2022 [facility] Work Phone: Comment on above: Expected: 08/28/2022 (Approximate), Expi res: 10/28/2022 Start: 08-28-2022 End: 07-26-2023 Comprehensive metabolic 2000 panel - Serum or Plasma COMP METABOLIC PANEL Lab Routine Megaloblastic anemia due to vitamin B12 deficiency Elevated sed rate High total serum IgM Chronic fatigue and malaise Expected: 08/28/2022 (Approximate), Expires: 07/26/2023 [facility] Work Phone: Comment on above: Expected: 08/28/2022 (Approximate), Expi res: 07/26/2023 Start: 08-28-2022 End: 10-28-2022 Erythrocyte sedimentation rate SED RATE WESTERGREN Lab Routine Megaloblastic anemia due to vitamin B12 deficiency Elevated sed rate High total serum IgM Chronic fatigue and malaise Expected: 08/28/2022 (Approximate), Expires: 10/28/2022 [facility] Work Phone: Comment on above: Expected: 08/28/2022 (Approximate), Expi res: 10/28/2022 Start: 08-28-2022 End: 10-28-2022 KAPPA/FARMER,FREE,SER KAPPA/FARMER,FREE,SER Lab Routine Megaloblastic anemia due to vitamin B12 deficiency Elevated sed rate High total serum IgM Chronic fatigue and malaise Expected: 08/28/2022 (Approximate), Expires: 10/28/2022 [facility] Work Phone: Comment on above: Expected: 08/28/2022 (Approximate), Expi res: 10/28/2022 Start: 08-28-2022 End: 07-26-2023 Lactate dehydrogenase [Enzymatic activity/volume] in Serum or Plasma LD LACTATE DEHYDRO Lab Routine Megaloblastic anemia due to vitamin B12 deficiency Elevated sed rate High total serum IgM Chronic fatigue and malaise Expected: 08/28/2022 (Approximate), Expires: 07/26/2023 [facility] Work Phone: Comment on above: Expected: 08/28/2022 (Approximate), Expi res: 07/26/2023 Start: 08-28-2022 End: 07-26-2023 MONOCLONAL PROTEIN, SERUM (BLOOD) MONOCLONAL PROTEIN, SERUM (BLOOD) Lab Routine Megaloblastic anemia due to vitamin B12 deficiency Elevated sed rate High total serum IgM Chronic fatigue and malaise Expected: 08/28/2022 (Approximate), Expires: 07/26/2023 [facility] Work Phone: Comment on above: Expected: 08/28/2022 (Approximate), Expi res: 07/26/2023 Start: 08-28-2022 End: 07-26-2023 Phosphate [Mass/volume] in Serum or Plasma PHOSPHORUS INORGANIC Lab Routine Megaloblastic anemia due to vitamin B12 deficiency Elevated sed rate High total serum IgM Chronic fatigue and malaise Expected: 08/28/2022 (Approximate), Expires: 07/26/2023 [facility] Work Phone: Comment on above: Expected: 08/28/2022 (Approximate), Expi res: 07/26/2023 Start: 08-28-2022 End: 07-26-2023 PROTEIN ELECTROPHORESIS SERUM W/INTERP PROTEIN ELECTROPHORESIS SERUM W/INTERP Lab Routine Megaloblastic anemia due to vitamin B12 deficiency Elevated sed rate High total serum IgM Chronic fatigue and malaise Expected: 08/28/2022 (Approximate), Expires: 07/26/2023 [facility] Work Phone: Comment on above: Expected: 08/28/2022 (Approximate), Expi res: 07/26/2023 Start: 08-28-2022 End: 07-26-2023 Urate [Mass/volume] in Serum or Plasma URIC ACID BLOOD Lab Routine Megaloblastic anemia due to vitamin B12 deficiency Elevated sed rate High total serum IgM Chronic fatigue and malaise Expected: 08/28/2022 (Approximate), Expires: 07/26/2023 [facility] Work Phone: Comment on above: Expected: 08/28/2022 (Approximate), Expi res: 07/26/2023 Start: 07-15-2022 End: 05-20-2023 [id number] [Mass/volume] in Serum or Plasma B2 MICROGLOBULIN B Lab Routine High total serum IgM Expected: 07/15/2022 (Approximate), Expires: 05/20/2023 [facility] Work Phone: Comment on above: Expected: 07/15/2022 (Approximate), Expi res: 05/20/2023 Start: 07-15-2022 End: 05-20-2023 Calcium.ionized [Moles/volume] in Blood CALCIUM IONIZED BLOOD Lab Routine High total serum IgM Expected: 07/15/2022 (Approximate), Expires: 05/20/2023 [facility] Work Phone: Comment on above: Expected: 07/15/2022 (Approximate), Expi res: 05/20/2023 Start: 07-15-2022 End: 05-20-2023 CBC W Auto Differential panel - Blood CBC + DIFF Lab Routine High total serum IgM Expected: 07/15/2022 (Approximate), Expires: 05/20/2023 [facility] Work Phone: Comment on above: Expected: 07/15/2022 (Approximate), Expi res: 05/20/2023 Start: 07-15-2022 End: 05-20-2023 Comprehensive metabolic 2000 panel - Serum or Plasma COMP METABOLIC PANEL Lab Routine High total serum IgM Expected: 07/15/2022 (Approximate), Expires: 05/20/2023 [facility] Work Phone: Comment on above: Expected: 07/15/2022 (Approximate), Expi res: 05/20/2023 Start: 07-15-2022 End: 09-14-2022 KAPPA/FARMER,FREE,SER KAPPA/FARMER,FREE,SER Lab Routine High total serum IgM Expected: 07/15/2022 (Approximate), Expires: 09/14/2022 [facility] Work Phone: Comment on above: Expected: 07/15/2022 (Approximate), Expi res: 09/14/2022 Start: 07-15-2022 End: 05-20-2023 Lactate dehydrogenase [Enzymatic activity/volume] in Serum or Plasma LD LACTATE DEHYDRO Lab Routine High total serum IgM Expected: 07/15/2022 (Approximate), Expires: 05/20/2023 [facility] Work Phone: Comment on above: Expected: 07/15/2022 (Approximate), Expi res: 05/20/2023 Start: 07-15-2022 End: 05-20-2023 MONOCLONAL PROTEIN, SERUM (BLOOD) MONOCLONAL PROTEIN, SERUM (BLOOD) Lab Routine High total serum IgM Expected: 07/15/2022 (Approximate), Expires: 05/20/2023 [facility] Work Phone: Comment on above: Expected: 07/15/2022 (Approximate), Expi res: 05/20/2023 Start: 07-15-2022 End: 05-20-2023 Phosphate [Mass/volume] in Serum or Plasma PHOSPHORUS INORGANIC Lab Routine High total serum IgM Expected: 07/15/2022 (Approximate), Expires: 05/20/2023 [facility] Work Phone: Comment on above: Expected: 07/15/2022 (Approximate), Expi res: 05/20/2023 Start: 07-15-2022 End: 05-20-2023 PROTEIN ELECTROPHORESIS SERUM W/INTERP PROTEIN ELECTROPHORESIS SERUM W/INTERP Lab Routine High total serum IgM Expected: 07/15/2022 (Approximate), Expires: 05/20/2023 [facility] Work Phone: Comment on above: Expected: 07/15/2022 (Approximate), Expi res: 05/20/2023 Start: 07-15-2022 End: 05-20-2023 Urate [Mass/volume] in Serum or Plasma URIC ACID BLOOD Lab Routine High total serum IgM Expected: 07/15/2022 (Approximate), Expires: 05/20/2023 [facility] Work Phone: Comment on above: Expected: 07/15/2022 (Approximate), Expi res: 05/20/2023 Start: 06-05-2022 End: 03-05-2023 25-hydroxyvitamin D3 [Mass/volume] in Serum or Plasma VITAMIN D 25 HYDROXY Lab Routine Vitamin D deficiency Expected: 06/05/2022 (Approximate), Expires: 03/05/2023 [facility] Work Phone: Comment on above: Expected: 06/05/2022 (Approximate), Expi res: 03/05/2023 Start: 06-05-2022 End: 03-05-2023 C reactive protein [Mass/volume] in Serum or Plasma C-REACTIVE PROTEIN (CRP) Lab Routine Elevated sed rate Elevated C-reactive protein (CRP) Expected: 06/05/2022 (Approximate), Expires: 03/05/2023 [facility] Work Phone: Comment on above: Expected: 06/05/2022 (Approximate), Expi res: 03/05/2023 Start: 06-05-2022 End: 03-05-2023 Cobalamin (Vitamin B12) [Mass/volume] in Serum or Plasma VITAMIN B12 BLOOD Lab Routine Vitamin B12 deficiency Expected: 06/05/2022 (Approximate), Expires: 03/05/2023 [facility] Work Phone: Comment on above: Expected: 06/05/2022 (Approximate), Expi res: 03/05/2023 Start: 06-05-2022 End: 03-05-2023 Erythrocyte sedimentation rate SED RATE WESTERGREN Lab Routine Elevated sed rate Elevated C-reactive protein (CRP) Expected: 06/05/2022 (Approximate), Expires: 03/05/2023 [facility] Work Phone: Comment on above: Expected: 06/05/2022 (Approximate), Expi res: 03/05/2023 Start: 05-06-2022 End: 03-18-2023 [id number] [Mass/volume] in Serum or Plasma B2 MICROGLOBULIN B Lab Routine Megaloblastic anemia due to vitamin B12 deficiency High total serum IgM Expected: 05/06/2022 (Approximate), Expires: 03/18/2023 [facility] Work Phone: Comment on above: Expected: 05/06/2022 (Approximate), Expi res: 03/18/2023 Start: 05-06-2022 End: 03-18-2023 Calcium.ionized [Moles/volume] in Blood CALCIUM IONIZED BLOOD Lab Routine Megaloblastic anemia due to vitamin B12 deficiency High total serum IgM Expected: 05/06/2022 (Approximate), Expires: 03/18/2023 [facility] Work Phone: Comment on above: Expected: 05/06/2022 (Approximate), Expi res: 03/18/2023 Start: 05-06-2022 End: 03-18-2023 CBC W Auto Differential panel - Blood CBC + DIFF Lab Routine Megaloblastic anemia due to vitamin B12 deficiency High total serum IgM Expected: 05/06/2022 (Approximate), Expires: 03/18/2023 [facility] Work Phone: Comment on above: Expected: 05/06/2022 (Approximate), Expi res: 03/18/2023 Start: 05-06-2022 End: 03-18-2023 Comprehensive metabolic 2000 panel - Serum or Plasma COMP METABOLIC PANEL Lab Routine Megaloblastic anemia due to vitamin B12 deficiency High total serum IgM Expected: 05/06/2022 (Approximate), Expires: 03/18/2023 [facility] Work Phone: Comment on above: Expected: 05/06/2022 (Approximate), Expi res: 03/18/2023 Start: 05-06-2022 End: 03-18-2023 Ferritin [Mass/volume] in Serum or Plasma FERRITIN BLD Lab Routine Megaloblastic anemia due to vitamin B12 deficiency High total serum IgM Expected: 05/06/2022 (Approximate), Expires: 03/18/2023 [facility] Work Phone: Comment on above: Expected: 05/06/2022 (Approximate), Expi res: 03/18/2023 Start: 05-06-2022 End: 03-18-2023 Iron and Iron binding capacity panel - Serum or Plasma IRON + TIBC Lab Routine Megaloblastic anemia due to vitamin B12 deficiency High total serum IgM Expected: 05/06/2022 (Approximate), Expires: 03/18/2023 [facility] Work Phone: Comment on above: Expected: 05/06/2022 (Approximate), Expi res: 03/18/2023 Start: 05-06-2022 End: 03-18-2023 Lactate dehydrogenase [Enzymatic activity/volume] in Serum or Plasma LD LACTATE DEHYDRO Lab Routine Megaloblastic anemia due to vitamin B12 deficiency High total serum IgM Expected: 05/06/2022 (Approximate), Expires: 03/18/2023 [facility] Work Phone: Comment on above: Expected: 05/06/2022 (Approximate), Expi res: 03/18/2023 Start: 05-06-2022 End: 03-18-2023 MONOCLONAL PROTEIN, SERUM (BLOOD) MONOCLONAL PROTEIN, SERUM (BLOOD) Lab Routine Megaloblastic anemia due to vitamin B12 deficiency High total serum IgM Expected: 05/06/2022 (Approximate), Expires: 03/18/2023 [facility] Work Phone: Comment on above: Expected: 05/06/2022 (Approximate), Expi res: 03/18/2023 Start: 05-06-2022 End: 03-18-2023 Phosphate [Mass/volume] in Serum or Plasma PHOSPHORUS INORGANIC Lab Routine Megaloblastic anemia due to vitamin B12 deficiency High total serum IgM Expected: 05/06/2022 (Approximate), Expires: 03/18/2023 [facility] Work Phone: Comment on above: Expected: 05/06/2022 (Approximate), Expi res: 03/18/2023 Start: 05-06-2022 End: 03-18-2023 PROTEIN ELECTROPHORESIS SERUM W/INTERP PROTEIN ELECTROPHORESIS SERUM W/INTERP Lab Routine Megaloblastic anemia due to vitamin B12 deficiency High total serum IgM Expected: 05/06/2022 (Approximate), Expires: 03/18/2023 [facility] Work Phone: Comment on above: Expected: 05/06/2022 (Approximate), Expi res: 03/18/2023 Start: 05-06-2022 End: 03-18-2023 Urate [Mass/volume] in Serum or Plasma URIC ACID BLOOD Lab Routine Megaloblastic anemia due to vitamin B12 deficiency High total serum IgM Expected: 05/06/2022 (Approximate), Expires: 03/18/2023 [facility] Work Phone: Comment on above: Expected: 05/06/2022 (Approximate), Expi res: 03/18/2023 Start: 04-05-2022 COVID-19 VACCINE (5 - Pfizer risk series) COVID-19 VACCINE (5 - Pfizer risk series) [facility] Start: 03-09-2022 End: 05-09-2022 Hemoglobin A1c in Blood HGB A1C Lab Routine Elevated glucose Expected: 03/09/2022, Expires: 05/09/2022 [facility] Work Phone: Comment on above: Expected: 03/09/2022, Expires: 2 Start: 02-24-2022 End: 04-26-2022 BARTONELLA AB PANEL BARTONELLA AB PANEL Lab Routine Swelling of lymph nodes Expected: 02/24/2022, Expires: 04/26/2022 [facility] Work Phone: Comment on above: Expected: 02/24/2022, Expires: 2 Start: 02-24-2022 End: 04-26-2022 BRUCELLA AB TOTAL BRUCELLA AB TOTAL Lab Routine Swelling of lymph nodes Expected: 02/24/2022, Expires: 04/26/2022 [facility] Work Phone: Comment on above: Expected: 02/24/2022, Expires: 2 Start: 02-24-2022 End: 04-26-2022 Cryptococcus sp Ag [Presence] in Unspecified specimen by Latex agglutination CRYPTOCOCCUS AG DET Microbiology Routine Swelling of lymph nodes Expected: 02/24/2022, Expires: 04/26/2022 [facility] Work Phone: Comment on above: Expected: 02/24/2022, Expires: 2 Start: 02-24-2022 End: 04-26-2022 HISTOPLASMA AG URINE HISTOPLASMA AG URINE Lab Routine Swelling of lymph nodes Expected: 02/24/2022, Expires: 04/26/2022 [facility] Work Phone: Comment on above: Expected: 02/24/2022, Expires: 2 Start: 02-24-2022 End: 04-26-2022 HIV 1 RNA [#/volume] (viral load) in Serum or Plasma by YESSI with probe detection HIV RNA VIRAL LOAD Lab Routine Swelling of lymph nodes Expected: 02/24/2022, Expires: 04/26/2022 [facility] Work Phone: Comment on above: Expected: 02/24/2022, Expires: 2 Start: 02-24-2022 End: 04-26-2022 SYPHILIS TOTAL W/REFLEX SYPHILIS TOTAL W/REFLEX Lab Routine Swelling of lymph nodes Expected: 02/24/2022, Expires: 04/26/2022 [facility] Work Phone: Comment on above: Expected: 02/24/2022, Expires: 2 Start: 01-22-2022 Influenza vaccination [facility] Start: 08-24-2021 COVID-19 VACCINE (4 - Booster for Pfizer series) COVID-19 VACCINE (4 - Booster for Pfizer series) [facility] Start: 01-22-2021 Influenza vaccination Flu vaccine (Season Ended) [facility] Phone: Start: 2020 Lipid panel Lipid screen [employer] Phone: Start: 2020 Mammography [facility] Start: 2020 Screening for malignant neoplasm of breast [facility] Start: 2010 HPV TESTING HPV TESTING [facility] Start: 2010 Screening for malignant neoplasm of cervix [facility] Start: 2002 DTaP/Tdap/Td Vaccines (1 - Tdap) DTaP/Tdap/Td Vaccines (1 - Tdap) [facility] Start: 2001 PAP TESTING PAP TESTING [facility] Start: 2001 Screening for malignant neoplasm of cervix [facility] Start: 10-05-1999 DTaP/Tdap/Td vaccine (1 - Tdap) DTaP/Tdap/Td vaccine (1 - Tdap) [facility] [employer] Phone: Start: 10-05-1999 Hepatitis B Vaccine (1 of 3 - 19+ 3-dose series) Hepatitis B Vaccine (1 of 3 - 19+ 3-dose series) [facility] Start: 10-05-1999 SHINGRIX VACCINE (1 of 2) SHINGRIX VACCINE (1 of 2) [facility] Start: 10-05-1999 Urine microalbumin profile [facility] Start: 10-05-1999 Zoster Vaccines (1 of 2) Zoster Vaccines (1 of 2) [facility] Start: 1998 Hepatitis C screening Hepatitis C Screening [facility] Start: 1998 HIV SCREENING HIV SCREENING [facility] Start: 1998 HIV screening HIV Screening [facility] Start: 10-05-1995 HIV screening HIV screen [facility] [employer] Phone: Start: 1992 COVID-19 Vaccine (1) COVID-19 Vaccine (1) [facility] [employer] Phone: Start: 1986 PNEUMOCOCCAL (1 - PCV) PNEUMOCOCCAL (1 - PCV) [facility] Start: 1986 Pneumococcal vaccination [facility] Start: 1986 Pneumococcal Vaccine: Pediatrics (0 to 5 Years) and At-Risk Patients (6 to 64 Years) (1 - PCV) Pneumococcal Vaccine: Pediatrics (0 to 5 Years) and At-Risk Patients (6 to 64 Years) (1 - PCV) [facility] Start: 1981 MMR Vaccines (1 of 1 - Standard series) MMR Vaccines (1 of 1 - Standard series) [facility] Start: 1981 Varicella vaccination Varicella Vaccines (1 of 2 - 2-dose childhood series) [facility] Start: 1981 Varicella vaccine (1 of 2 - 2-dose childhood series) Varicella vaccine (1 of 2 - 2-dose childhood series) [facility] [employer] Phone: Start: 1980 HEPATITIS B (1 of 3 - 3-dose series) HEPATITIS B (1 of 3 - 3-dose series) [facility] Start: 1980 Hepatitis B Vaccine (1 of 3 - 3-dose series) Hepatitis B Vaccine (1 of 3 - 3-dose series) [facility] Start: 1980 Hepatitis B Vaccines (1 of 3 - 3-dose series) Hepatitis B Vaccines (1 of 3 - 3-dose series) [facility] Start: 1980 Hepatitis C screening Hepatitis C screen [facility] Phone: Start: 1980 HIV screening HIV Screening [facility] Start: 1980 Lipid panel Lipid Panel [facility] Start: 1980 Screening for osteoporosis Bone Density Scan [facility] Start: 1980 Yearly Adult Physical Yearly Adult Physical [facility] Cardiovascular funct ion eval w/tilt table w/mntr TILT TABLE EVALUATION Cardiology Routine POTS (postural orthostatic tachycardia syndrome) Ordered: 03/09/2022 [facility] [employer] Work Phone: Comment on above: Ordered: 03/09/2022 End: 03-05-2024 DXA-AXIAL SKELETON DXA-AXIAL SKELETON Radiology Routine Steroid-induced osteoporosis 1 Occurrences starting 02/04/2023 until 03/05/2024 [facility] [employer] Work Phone: Comment on above: 1 Occurrences starting 02/04/2023 until 03/05/2024 End: 03-05-2024 DXA-FOREARM SKELETON DXA-FOREARM SKELETON Radiology Routine Steroid-induced osteoporosis 1 Occurrences starting 02/04/2023 until 03/05/2024 [facility] [employer] Work Phone: Comment on above: 1 Occurrences starting 02/04/2023 until 03/05/2024 ECG 12 Lead ECG 12 Lead ECG Routine Irregular heart rate 06/09/2023 8:28 AM EST [facility] Work Phone: End: 03-09-2023 HOME SLEEP APNEA TEST (HSAT) HOME SLEEP APNEA TEST (HSAT) Procedures Routine Somnolence, daytime Snoring 1 Occurrences starting 03/09/2022 until 03/09/2023 [facility] Work Phone: Comment on above: 1 Occurrences starting 03/09/2022 until 03/09/2023 Oxygen therapy [[facility] Data Set] Initiate Oxygen Therapy Protocol Respiratory Care Routine Daily until discontinued starting 10/07/2020 [facility] Work Phone: Comment on above: Daily until discontinued starting 2020 End: 03-04-2023 Polysomnogram POLYSOMNOGRAM (PSG) Procedures Routine Somnolence, daytime Snoring 1 Occurrences starting 03/04/2022 until 03/04/2023 [facility] Work Phone: Comment on above: 1 Occurrences starting 03/04/2022 until 03/04/2023 [facility] Immunizations Immunization Date Immunization Notes Care Provider Reginaldo [email or web address] 02-23-2023 COVID-19 vaccine, ag e 12+ yr, 2022- season ([employer]) Lynne Ni MD Work Phone: [facility] Payers Date Payer Category Payer Self-pay 2017 Unknown [employer] [id number] 2017-Present [address] [place] [address] [id number] 2009 Medicaid [employer] [id number] 2009-Present [phone] [address] [place] [address] Medicaid [id number] 2009 Medicaid [id number] 1980 Unknown [id number] [id number]5 1980 Unknown [id number] 2.16.840.1.382649.3.579.2.175 1980 Unknown [id number] 2.16.840.1.901823.3.579.2.593 1980 Unknown [id number] 2.16.840.1.556968.3.579.2.593 1980 Unknown [id number] 2.16.840.1.015669.3.579.2.593 1980 Unknown [id number] 2.16.840.1.348209.3.579.2.593 1980 Unknown [id number] 2.16.840.1.246873.3.579.2.593 1980 Unknown [id number] 2.16.840.1.671704.3.579.2.593 1980 Unknown [id number] 2.16.840.1.791581.3.579.2.593 1980 Unknown [id number] 2.16.840.1.786205.3.579.2.593 1980 Unknown [id number] 2.16.840.1.866504.3.579.2.593 1980 Unknown [id number] 2.16.840.1.363148.3.579.2.593 1980 Unknown [id number] 2.16.840.1.665248.3.579.2.1244 1980 Unknown [id number] 2.16.840.1.649008.3.579.2.1244 1980 Unknown [id number] 2.16.840.1.329204.3.579.2.1258 1980 Unknown [id number] 2.16.840.1.749114.3.579.2.1258 1980 Unknown [id number] 2.16.840.1.955592.3.579.2.1258 1980 Unknown [id number] 2.16.840.1.609140.3.579.2.1258 1980 Unknown [id number] 2.16.840.1.210975.3.579.2.1258 1980 Unknown [id number] 2.16.840.1.741931.3.579.2.9 1980 Unknown [id number] 2.16.840.1.745767.3.579.2.1258 1980 Unknown [id number] 2.16.840.1.729693.3.579.2.1259 1959 Unknown [id number] 1959 Unknown [id number] Unknown [id number] [id number] Social History Date Type Detail Facility Start: 10-07-2020 End: 03-09-2022 Tobacco smoking status ORIS Current every day smoker [facility] Start: 10-07-2020 End: 03-09-2022 Tobacco use and exposure Never used [employer] Start: 10-07-2020 End: 07-13-2023 Alcohol intake Lifetime non-drinker (finding) [facility] [employer] Phone: Start: 10-07-2020 History SDOH Alcohol Frequency 1 [facility] [employer] Phone: Start: 1980 [facility] Start: 02-22-2022 End: 07-13-2023 Exposure to SARS-CoV-2 (event) Not sure [facility] History of tobacco use Cigarette Smoker [facility] Start: 05-31-2014 End: 09-24-2022 Cigarettes smoked current (pack per day) - Reported 1 [facility] Start: 10-24-2021 End: 06-10-2023 Alcohol intake Current non-drinker of alcohol (finding) [facility] Start: 10-14-2021 End: 10-24-2021 Exposure to SARS-CoV-2 (event) Unable to assess [facility] Start: 09-24-2022 End: 10-22-2022 Sex Assigned At [facility] Adult Depression Screening Assessment 1 [facility] Start: 10-19-2022 Tobacco Comment Current smoker , everyday, 11-20 cigarettes/day [facility] Start: 05-31-2023 Alcohol Comment Caffeine intak e : > 4 cups per day [facility] Clinical Notes 05-31-2014 to 09-30-2023 Renea Schneider MA - 09/30/2023 10:53 AM EDTPatient InstructionsJose Najera MD - 09/09/2023 4:30 PM EDTTelephone Encounter - Maynor Bryson MA - 09/06/2023 7:21 AM EDTPatient Instructions Note Date & Type Note Facility 09-30-2023 Nurse Note Patient Identification confirmed: yes. Injection given and documented on JUL per provider order. Renea Schneider MA [facility] 09-13-2023 Note [facility] 09-09-2023 Note [facility] 09-09-2023 Instructions Jose Najera MD - 09/09/2023 4:47 PM EDT Follow up in 13 Weeks - labs 1 week before. B12 shot every 4 weeks. Continue Folic acid. documented in this encounter [facility] 09-09-2023 History of Present illness Narrative NAME: Jones Haley CLINIC NO.: [id number] DATE OF SERVICE: September 09, 2023 ([place]) Some elements in this clinic note that are critical to medical decision making have been carefully reviewed and included from a prior clinic note dated: June 10, 2023 ([facility]) Referring Provider: Dr. Madelaine Ferris Additional Clinicians involved in Jones Haley's care: VIRTUAL VISIT PROGRESS NOTE This is a virtual visit using [employer]. It required patient-provider interaction for the medical decision making as documented below. I have communicated my name and active licensure. The patient's identity and physical location were verified at the time of this visit. Either the patient or their legal franchise sales representative has been informed of the risks and benefits of -- and alternatives to -- treatment through a remote evaluation and consents to proceed with the evaluation remotely. DIAGNOSIS: Multiple symptoms ASSESSMENT: 42 year old [...] weeks. Continue Folic acid. Follow up in 13 Weeks - labs 1 week before. HPI: CASE HISTORY: Reverse Chronological Order Currently 2021 ongoing and generalized malaise with elevated IgM. 2020 - lymph node biopsy from neck negative for malignancy. 2019 - had a respiratory illness with dyspnea, possible bronchitis, no cough Updated Visit, September 09, 2023: Virtual Visit No change in symptoms of muscle weakness and pain. Recently had a boil on her leg x 2 and after 2 rounds of antibiotics, ended up C-diff. Lots of phlegm. Fullness in neck like she can't breath. Still getting palpitations but improved with Metoprolol [address]'s and ENT eval that were negative. Noted cyst on thyroid and thyroid enlargement. B12 seems to be working for her but not sure it's helping her a lot. Notes some improvement in wakefulness after she gets it. Lymph nodes have come back in left arm pit as of 1 week ago. Had been resolved for a long time. Updated Visit, June 10, 2023: Jones returns today. She reports of extreme muscle weakness and pain, has had back pain for years, which may be contributing. She has been using her CPAP every night for a year now, the settings on her machine might be causing her muscle issues. She took an antibiotic recently for a boil on her leg; the boil drained the day before her labs were drawn. Her WBC is high - lupus or the boil infection could be causing. She has been feeling anxious all week regarding the lab results. She reports elevated heart rate but is unsure if this is related to anxiety. Updated Visit, April 20, 2023: Jones Haley returns for scheduled follow-up and monthly B12. She has multiple complaints today. She complains of low energy. She denies any abnormal bleeding. She follows with rheumatology. In the past she has been diagnosed with POTS possibly. She experiences heart palpitations. She has hair falling out. She occasionally has fevers and she feels like she is getting the flu. Times her lips go numb. Updated Visit, February 19, 2023: Starting on [...] [facility] - awaiting [facility]. B12 helps especially [...] She follows with multiple doctors including and production operations inspector, oil well engineer, marine cargo specialist and PCP. She has been told they [...] PERFORMANCE STATUS: 0 PHYSICAL EXAMINATION: Vitals: LMP 05/18/2022 There is no height or weight on file to calculate BSA. No exam. ALLERGIES: ALLERGIES Allergen Reactions Bactrim [Sulfametho* Other: See Comments CAUSED ENLARGED LYMPH NODES Codeine Other: See Comments Make her feel [...] ergocalciferol 50,000 unit capsule (VITAMIN D2, DRISDOL) Take 1cap by mouth once a week with food. azaTHIOprine (IMURAN) 50 mg tablet TAKE 3 TABLETS BY MOUTH DAILY WITH FOOD. HOLD IF ON ANTIBIOTICS OR ILL. topiramate (TOPAMAX) 25 mg tablet Take 1 tablet by mouth two times a day. predniSONE (DELTASONE) 10 mg tablet Take 40mg daily x 5days, then decrease 5mg every 5days until 10mg daily thereafter pregabalin (LYRICA) 75 mg capsule take 1 capsule by mouth three times a day belimumab (BENLYSTA) 200 mg/mL auto-injector Inject 200mg (1 pen) subcutaneously once weekly folic acid 1 mg tablet TAKE 1 TABLET BY MOUTH EVERY DAY hydrOXYchloroQUINE (PLAQUENIL) 200 mg tablet TAKE 1 TAB TWICE A DAY WITH FOOD *SUNSCREEN WHILE OUTDOORS/OPHTHAMOLOGY EVERY 6-12 MONTHS WHILE ON* metoprolol tartrate, short acting, (LOPRESSOR) 50 mg tablet Take 50 mg by mouth twice daily. CPAP/BIPAP/OTHER Type .CPAPSettings into a note to see current settings/supplies/DME information. acetaminophen (TYLENOL) 500 mg tablet Take 1,000 mg by mouth. aspirin 81 mg chewable tablet Take 81 mg by mouth. ibuprofen (MOTRIN) 200 mg tablet Take 600 mg by mouth. LABORATORY VALUES: WBC (k/uL) Date Value 08/31/2023 13.43 (H) RBC (m/uL) Date Value 08/31/2023 4.43 Hemoglobin (g/dL) Date Value 08/31/2023 13.3 Hematocrit (%) Date Value 08/31/2023 41.5 MCV (fL) Date Value 08/31/2023 93.7 MCH (pg) Date Value 08/31/2023 30.0 MCHC (g/dL) Date Value 08/31/2023 32.0 RDW-CV (%) Date Value 08/31/2023 14.6 Platelet Count (k/uL) Date Value 08/31/2023 304 MPV (fL) Date Value 08/31/2023 9.6 Glucose (mg/dL) Date Value 08/31/2023 160 (H) BUN (mg/dL) Date Value 08/31/2023 13 Creatinine (mg/dL) Date Value 08/31/2023 0.80 Sodium (mmol/L) Date Value 08/31/2023 141 Potassium (mmol/L) Date Value 08/31/2023 4.2 Chloride (mmol/L) Date Value 08/31/2023 105 CO2 (mmol/L) Date Value 08/31/2023 25 Protein, Total (g/dL) Date Value 08/31/2023 6.9 Albumin (g/dL) Date Value 08/31/2023 4.0 Calcium, Total (mg/dL) Date Value 08/31/2023 10.0 Alkaline Phosphatase (U/L) Date Value 08/31/2023 69 Bilirubin, Total (mg/dL) Date Value 08/31/2023 0.3 AST (U/L) Date Value 08/31/2023 18 ALT (U/L) Date Value 08/31/2023 31 Cholesterol, Total (mg/dL) Date Value 05/21/2015 217 (H) Triglyceride (mg/dL) Date Value 05/21/2015 242 (H) DIAGNOSIS: (D53.1) Megaloblastic anemia due to vitamin B12 deficiency (primary encounter diagnosis) Plan: COMPLETE BLOOD COUNT AND DIFFERENTIAL, COMPREHENSIVE METABOLIC PANEL, IRON AND TIBC, FERRITIN, VITAMIN B12, FOLATE, SERUM, IMMUNOGLOBULIN A, IMMUNOGLOBULIN E, IMMUNOGLOBULIN G, IMMUNOGLOBULIN M, SEDIMENTATION RATE, WESTERGREN (G47.33) Obstructive sleep apnea syndrome (R53.82, R53.81) Chronic fatigue and malaise (R76.8) High total serum IgM Plan: COMPLETE BLOOD COUNT AND DIFFERENTIAL, COMPREHENSIVE METABOLIC PANEL, IRON AND TIBC, FERRITIN, VITAMIN B12, FOLATE, SERUM, IMMUNOGLOBULIN A, IMMUNOGLOBULIN E, IMMUNOGLOBULIN G, IMMUNOGLOBULIN M, SEDIMENTATION RATE, WESTERGREN (G47.33) JOSE RAFAEL (obstructive sleep apnea) (R40.0) Somnolence, daytime PAST MEDICAL HISTORY Diagnosis Date Chronic pain [...] of 30 minutes on the date of service which included preparing to see the patient, completing clinical documentation, obtaining and/or reviewing separately obtained history, counseling and educating the patient/family/caregiver, ordering medications, tests, or procedures, independently interpreting results (not separately reported), and communicating results to the patient/family/caregiver. Jose Najera MD, CPE Hematology and Oncology Services Provided at: [place], [place] CC: Madelaine Ferris MD [address] [facility] [address] documented in this encounter [facility] 09-06-2023 Miscellaneous Notes patient has viewed the Streak message per [employer] Please Call patient if VIAP note not read to review results/released to My Chart if tests completed at [facility]: Improved/Borderline wbc and one inflammatory test- will monitor with primary care provider. Rest of labs improved/stable. Stay on vitamin D script once a week with food. If still taking prednisone, alternate FULL and HALF tab every other day x 2-4weeks, then HALF tab daily x 2-4weeks, then HALF tab every other day x 2-4weeks, then stop if tolerated. New vitamin D script sent to pharmacy. Notify office if medication change is not tolerated. Recheck nonfasting labs in 3months, orders have been placed. Happy to further review and discuss at follow up visit. Continue rest of treatment plan per instructions at last office visit. Thank you. 08/31/23 high wbc 13.43, glucose 160, esr 37;normal rest of cbc, cmp, iron 87, vitamin D 32.2, crp 0.6; 07/15/23 saw derm [facility]Patient reported she was seen in urgent care x 2 since March, dx with MRSA and patient was treated with two different ATB, first treatment doxycycline and keflex (doxycycline gave patient severe head pressure), then second treatment was clindamycin and keflex, patient reports she developed c-diff after. Forehead lupus timidus improved with plaquenil. Hidradenitis suppurativa left & right medial thigh no active lesions. 06/10/23 low potassium 3.6, vitamin D 17.3;high wbc 15.15, esr 28;normal rest of cbc, cmp, crp<0.3; 05/11/23 flare, treated with prednisone pack Eye exam 02/26/23 no ocular complication related to medication. Patient's request for medication is as follows: Requested Prescriptions Signed Prescriptions Disp Refills ergocalciferol 50,000 unit capsule (VITAMIN D2, DRISDOL) 12 capsule 3 Sig: Take 1cap by mouth once a week with food. Authorizing Provider: LYNNE NI Prescription(s) as above. Please process accordingly. Lynne Ni MD documented in this encounter [facility] 08-31-2023 Nurse Note Patient Identification confirmed: yes. Injection given and documented on MAR per provider order. Margret Cuenca MA documented in this encounter [facility] 08-23-2023 Nurse Note Patient Identification confirmed: yes. Injection given and documented on MAR per provider order. Renea Schneider MA documented in this encounter [facility] 08-12-2023 Note [facility] 08-05-2023 Nurse Note Patient Identification confirmed: yes. Injection given and documented on JUL per provider order. Margret Cuenca documented in this encounter [facility] 07-13-2023 Note [facility] 07-13-2023 Nurse Note Patient Identification confirmed: yes. Injection given and documented on MAR per provider order. Margret Cuenca documented in this encounter [facility] 07-13-2023 History of Present illness Narrative Cardiology Consultation- New Consult Reason for referral: Palpitations HPI: Jones Haley is a 42 y.o. female who is being seen in the office for the first time to assess symptoms of chest tightness and palpitation. She was diagnosed with systemic lupus several years ago and is being cared for at the [facility] utilizing steroids, Plaquenil and injectable medication(Benlystal). The patient record indicating having had cardiac catheterization in [place] 3 years ago which was normal. I have the report available for my review. Recently had an echocardiogram at [facility] which was unremarkable and had event [...] lupus being treated by rheumatology at the [facility] on steroids, Plaquenil and monoclonal antibody [...] , Rfl: ergocalciferol (Vitamin D-2) 1.25 MG (79768 UT) capsule, Take 1 capsule (50,000 Units) [...] Scribe Attestation By signing my name below, I jbrleticlpn Maikol attest that this documentation has been prepared [...] discussion and plan. documented in this encounter [facility] Work Phone: 07-13-2023 Instructions Lila Tejeda [...] of your visit. documented in this encounter [facility] Work Phone: 07-06-2023 History of Present [...] , Rfl: ergocalciferol (Vitamin D2) 1.25 MG (82557 UT) capsule, Take 50,000 Units by mouth [...] Chronic laryngopharyngitis COVID-19 vaccine administered x 2 ([employer]) History of removal of cyst 2013 tailbone [...] reflexes: Stu's absent. Ankle clonus absent. Coordination Cdkexo-sx-nmgu, rapid alternating movements and ewzl-ny-rzmg normal bilaterally without dysmetria. Gait Normal casual, toe, heel and tandem gait. Romberg is absent. Assessment/Plan Diagnoses and all orders for this visit: Autoimmune disease (CMS/[facility]ER[facility]) - Protein electrophoresis, serum; Future - Protein [...] for 10 days. documented in this encounter [facility] 06-15-2023 Note [facility] 06-10-2023 Note [facility] 06-09-2023 History of Present illness [...] undergone cardiac workup in the past in [place] as noted below. She also states that she follows with Neurology for possible POTS syndrome. Admits to daily tobacco use, 1 pack of cigarettes per day. Denies vaping, ETOH, recreational drugs. Admits to drinking approximately 1 pot of coffee per day. Denies daily exercise. 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 Family history negative [...] , Rfl: ergocalciferol (Vitamin D-2) 1.25 MG (94251 UT) capsule, Take 1 capsule (50,000 Units) [...] Anemia, unspecified Anxiety Autonomic dysfunction Depression, recurrent ([facility]) Discoid lupus erythematosus Chronic bilateral low back pain with bilateral sciatica Hyperlipidemia Obesity, Class III, BMI 40-49.9 (morbid obesity) ([facility]) Obstructive sleep apnea syndrome Arthritis Tachycardia Vitamin [...] prepare this document. documented in this encounter [facility] Work Phone: 06-01-2023 Note [facility] 05-26-2023 Note [facility] 05-26-2023 Instructions Christie Phan MD - 05/26/2023 5:43 PM EST Images from the original note were not included. https://[employer]/tofu-bolgayese/ https://nutritionstudies.org/how- zo-bzdqxsqgd-pydzteyp-to-adopt-a- jyghb-fuwd-nxguj-based-lifestyle/ https://www.[employer].com /blog/plantbasedkids https://[employer]/randee ct-iwrvf-wxwb-for-kids/ https://[employer]/how-to- kiervnvyuz-afyh-npcm-bq-q-tjxbh-b ased-diet/ WHAT TO EAT? Breakfast: Overnight Oats [...] oatmeal. Can also make in the crockpot. Monegasque muffin/almond butter topped with fresh berries Monegasque muffin, cooked egg/egg white, tomato, thin slice hungarian cheese Fresh berries, hard boiled egg, whole wheat toast Plain yogurt topped with berries, unsalted nuts, drizzle of honey Whole grain toast/Monegasque muffin topped with mashed avocado and tomatoes Lunch: Dinner leftovers packed in Tupperware, side of fruit Salad mixture topped with a protein (chick breast/tuna/hard boiled egg/beans), dressing and side of fruit Dinner - Refer to plate transportation planner pictures to help select foods and portion ratios of protein, vegetables/starches. Keep it simple and rotate your favorite meals. Sheet nix meals Soups Grilled protein/vegetables/side of starch (plate transportation planner picture) Stir can with protein, mixed vegetables, and riced cauliflower or portion controlled whole grain rice. Make your own bowls - Togolese/American/ theme [place] with Zoodles (spiralized vegetable noodles). Roasted vegetable wraps Alter traditional recipes to reflect HIGH QUALITY ingredients in the right QUANTITIES. Snacks - portion controlled: Raw veggies (can have with hummus, mashed avocado, salsa). Unsalted nuts Fruit (1 serving). (optional side of peanut butter) Air pop popcorn [place] and low fat hungarian cheese rolled up String cheese Protein balls (mix rolled oats, nut butter, flax seeds, dash almond milk). Beverages: Water Coffee, Hot tea Unsweetened ice tea EATING OUT: Research menu online, include nutritional information. Make your order decision before getting to restaurant. Stick to recommended portions (plate transportation planner picture). Ask for substitutions or modifications. [...] baked potato, sprouted grain bread, chick peas https://www.Educabilia/articl e/6739351/nbgkcduoyooon-iolc-xnjr -for-beginners/ https://www.[employer].com/catego ry/4274/kutmeushyvwma-tpix-ajozbo / https://www.[employer].com/catego ry/4300/xzercdvmewhts-rxym-xahj-p lans/ My current favorite cookbooks are documented in this encounter [facility] 05-26-2023 History of Present illness Narrative Images [...] the date of the service which included nmnf-fn-enfr patient care, completing clinical documentation, performing a medically appropriate examination, counseling and educating the patient/family/caregiver, and ordering medications, tests, or procedures. Christie Phan MD, MA, RUST Lifestyle Medicine Specialist documented in this encounter [facility] 05-19-2023 Note [facility] 04-26-2023 Note [facility] 04-26-2023 Miscellaneous Notes Medication pending with new pharmacy information. documented in this encounter [facility] 04-26-2023 History of Present illness Narrative Images from the original note were not included. [facility] Virtual Follow-Up [...] the date of the service which included tgxs-wy-nrms patient care, completing clinical documentation, performing a medically appropriate examination, counseling and educating the patient/family/caregiver, and ordering medications, tests, or procedures. I have communicated my name and active licensure. The patient's identity and physical location were verified at the time of this visit. Either the patient or their legal franchise sales representative has been informed of the risks and benefits of -- and alternatives to -- treatment through a remote evaluation and consents to proceed with the evaluation remotely. Christie Phan MD, MA, RUST Lifestyle Medicine Specialist documented in this encounter [facility] 04-26-2023 Note [facility] 04-26-2023 Nurse Note Spoke to Jones Haley, confirmed patient is registered on VIAP and is prepared for their appointment. Confirmed the patient has updated medications, allergies, and questionnaires via VIAP. Informed patient if there is an issue with the connection, provider will send the patient a secure link. If provider is running late, patient should remain connected to the visit. Patient verbalized understanding. documented in this encounter [facility] 04-22-2023 Miscellaneous Notes Pt called for Iron results; possible need for transfusion. Pt aware no need for iron infusion at this time. Enma Hamm RN documented in this encounter [facility] 04-16-2023 Note [facility] 04-16-2023 Note HNO ID: [id number] Author: Kenzie Shannon Service: ? Author Type: ? Type: Progress Notes Filed: 04/16/2023 11:10 AM Note Text: Patient Identification confirmed: yes. Injection given and documented on MAR per provider order. Kenzie Shannon [facility] 04-16-2023 History of Present illness Narrative Patient Identification confirmed: yes. Injection given and documented on MAR per provider order. Kenzie Shannon documented in this encounter [facility] 04-01-2023 Note [facility] 03-19-2023 Note HNO ID: [id number] Author: Kenzie Shannon Service: ? Author Type: ? Type: Progress Notes Filed: 03/19/2023 11:22 AM Note Text: Patient Identification confirmed: yes. Injection given and documented on MAR per provider order. Kenzie Shannon [facility] 03-19-2023 History of Present illness Narrative Patient Identification confirmed: yes. Injection given and documented on MAR per provider order. Kenzie Shannon documented in this encounter [facility] 03-16-2023 Note [facility] 03-16-2023 History of Present illness Narrative CMN RECEIVED BY [employer] VIA FAX, COMPLETED, AND PLACED IN PROVIDER MAILBOX FOR SIGNATURE On March 16, 2023 By Marija Ziegler Chief Wheelage Clerk II. [employer] SENDING CMN: JOSH SIGNED AND DATED CMN, FAXED TO [employer] & CONFIRMATION PAGE RECEIVED: 03.24.23 documented in this encounter [facility] 03-11-2023 Note [facility] 03-11-2023 History of Present illness [...] In Department: RHEUMATOLOGY documented in this encounter [facility] 03-10-2023 Miscellaneous Notes Spoke with patient. We stopped her trulicity because of side effects. She only took the cymbalta for a week. She will restart and we will see how she is doing in 2 months. Have also ordered insulin labs to check for insulin resistance. documented in this encounter [facility] 03-01-2023 Miscellaneous Notes For chart: Eye exam 02/26/23 no ocular complication related to medication. Received eye exam from [facility] Placed on your desk for review. documented in this encounter [facility] 02-19-2023 Note [facility] 02-19-2023 Nurse Note Patient Identification confirmed: yes. Injection given and documented on JUL per provider order. Radha Schofield MA documented in this encounter [facility] 02-19-2023 Instructions Jose Najera MD - 02/19/2023 11:40 AM EDT B12 shot today and every 4 weeks. Continue Folic acid. Follow up in 8 Weeks - labs 1 week before. documented in this encounter [facility] 02-19-2023 History of Present illness Narrative Images from the original note were not included. AMBULATORY TELEPHONE VISIT Jones Haley has consented to this telephone encounter. Persons Present: Patient and myself Chief Complaint/Reason: Anemia; To review recent blood work. HPI: Total Time Spent: 21 minutes Wilmer Driver APRN.CORPORATE PILOT NAME: Jones Haley CLINIC NO.: [id number] DATE OF SERVICE: February 19, 2023 ([place]) [...] lower [facility] - awaiting results. B12 helps especially [...] stable there. Updated Visit, August 27, 2022: Jonessusan Haley returns for follow-up and B12 injection. She has missed a few B12 injections. She follows with multiple doctors including and production operations inspector, oil well engineer, marine cargo specialist and PCP. She has been told they [...] which included preparing to see the patient, jvjy-tr-vmmf patient care, completing clinical documentation, performing a medically appropriate examination, counseling and educating the patient/family/caregiver, ordering medications, tests, or procedures, and independently interpreting results (not separately reported). Jose Najera MD, CPE Hematology and Oncology Services Provided at: [place], [place] CC: Madelaine Ferris MD [address] [facility] [address] documented in this encounter [facility] 02-16-2023 Miscellaneous Notes Notify patient medication sent [...] RAYRAY INJECTION TEACHING 03/11/2023 7:30 AM [facility] MEG VIDEO SPEC EST 08/12/2023 9:00 AM [facility] MEG Last Ophthalmology Check for [...] Vitamin D deficiency documented in this encounter [facility] 02-08-2023 Miscellaneous Notes Spoke with patient Will get labs done when she does labs in Dec for Dre/Onc Mailed orders for DXA to pt so she can go to [facility] Pre cert Benlyst Scheduled Teaching visit for 4 weeks out to give time for ins and to receive medication. Will edison if not auth or received Scheduled [address] Ni in 6 mo Mirela Carlos February 08, 2023 11:15 AM Please call and schedule nonfasting labs 04/2023 Due for bone mineral density (1st time) patient requests order for [place] Please schedule follow up office visit for [...] Lynne Ni MD documented in this encounter [facility] 02-04-2023 Note [facility] 02-04-2023 Note [facility] 02-04-2023 Note [facility] 02-04-2023 Note [facility] 02-04-2023 Note [facility] 02-04-2023 History of Present illness Narrative [facility] received prescription(s) for Benlysta from Dr. Ni. Benefits investigation was conducted, indicating that a prior authorization is required by patients plan with [facility]. Encounter will be updated once prior authorization has been submitted by [facility]. [facility] P: [phone] F: [phone] documented in this encounter [facility] 02-04-2023 History of Present illness Narrative THIS [...] visit. Either the patient or their legal franchise sales representative has been informed of the [...] neurology/on metoprolol for POTs, avoid aggravating triggers, [place] pain recommendations per primary care provider/pain clinic/patient [...] Due for eye exam. Labs sent to [facility]/completed in 06/2021 (no results faxed to office, but patient pulled up results on her phone). Chronic current pain in neck, flank area, mid back, knees, legs, arms, all over pain. Better with lyrica 75mg 3times a day. Reports pain 4-12/31. Couple hrs AM stiffness. COVID vaccine Pfizer [...] COVID-19 original vaccine, age 12+ yr, monovalent ([employer] - PURPLE TOP) 09/28/2020 10/19/2020 05/26/2021 COVID-19 vaccine, age 12+ yr, bivalent ([employer]) 02/08/2022 Pneumovax no Flu shot no Tetanus [...] (33);NL cbc, cmp, negative hla b27; Outside [place] 06/2021 low vitamin D 16, vitamin b12-307;high [...] rate M25.531, M25.532 Bilateral wrist pain Z79.52 correction 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 M81.8, T38.0X5A [...] measures, may consider osteoporosis treatment if on [place] steroids/abnormal bmd, take vitamin D script if [...] neurology/on metoprolol for POTs, avoid aggravating triggers, [place] [facility] pain recommendations per primary care provider/pain clinic/patient currently declined cymbalta/lyrica, see ortho, prn brace, start fall precautions, answered all questions and concerns, patient voiced understanding. RECOMMENDATION/PLAN: [facility] Pollen on 02/04/23 DXA-AXIAL SKELETON DXA-FOREARM SKELETON Reviewed [...] (200mg) daily with a meal Please see executive candidate developer every 6-12months while on Hydroxychloroquine. Start 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 [...] touching your toes, sit-ups, using row machine course instructor pain recommendations per primary care provider/pain clinic [...] video & audio (virtual) or phone or dgod-xc-idku patient care, completing clinical documentation, obtaining and/or [...] cc Gay Enciso CNP;Dr.Douglas Sai Ferris MD [facility] AMBULATORY VISIT INTAKE QUESTIONNAIRE Question 02/02/2023 [...] Workers' Compensation? No Do you need an gwot ia/ilo intelligence support? No [facility] MYCHART ZOOM MESSAGE Question 02/02/2023 10:32 [...] or = 5) documented in this encounter [facility] 02-04-2023 Instructions Lynne Ni MD - 02/04/2023 [...] (200mg) daily with a meal Please see executive candidate developer every 6-12months while on Hydroxychloroquine. 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 daily [...] touching your toes, sit-ups, using row machine course instructor pain recommendations per primary care provider/pain clinic [...] usual activities immediately. documented in this encounter [facility] 01-26-2023 Miscellaneous Notes patient has viewed the Streak message per [employer] Please Call patient if VIAP note not read to review results/released to My Chart if tests completed at [facility]: mildly high normal wbc- will monitor. [...] Lynne Ni MD documented in this encounter [facility] 01-22-2023 Nurse Note Patient Identification confirmed: yes. Injection given and documented on JUL per provider order. Radha Schofield MA documented in this encounter [facility] 01-12-2023 Miscellaneous Notes Patient needs appointment before I can refill. Patient's request for medication is as follows: Requested Prescriptions Pending Prescriptions Disp Refills dulaglutide (TRULICITY) 1.5 mg/0.5 mL pen injector 2 mL 0 Sig: Inject 1.5 mg subcutaneously one time a week. Please approve the above prescription(s) to electronically send to [facility] pharmacy. Milagro Mendiola MA documented in this encounter [facility] 01-01-2023 Note [facility] 01-01-2023 History of Present illness Narrative VIRTUAL VISIT PROGRESS NOTE This is a virtual visit using VIAP video visit. It required patient-provider interaction for the medical decision making as documented below. I have communicated my name and active licensure. The patient's identity and physical location were verified at the time of this visit. 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 Wilmer Driver APRN.TRUE Pt called youth development professional service last evening stating she was suppose to have a phone call with Wilmer at 330 and never received a call. Pt is still waiting (536 pm 12/17/22). Please advise Lidia Argueta RN documented in this encounter [facility] 12-18-2022 History of Present illness Narrative Images [...] Total Time Spent: 21 minutes Wilmer Driver APRN.CORPORATE PILOT NAME: Jones Haley CLINIC NO.: [id number] DATE OF SERVICE: October 22, 2022 (Marquis) [...] [facility] - awaiting [facility]. B12 helps especially [...] stable there. Updated Visit, August 27, 2022: Jonse Melissa De Pazhugo returns for follow-up and B12 injection. She has missed a few B12 injections. She follows with multiple doctors including and production operations inspector, oil well engineer, marine cargo specialist and PCP. She has been told they [...] ECOG PERFORMANCE STATUS: 0 PHYSICAL EXAMINATION: Vitals: [facility] 02/26/2022 There is no height or [...] ill. ergocalciferol 50,000 unit capsule (VITAMIN D2, ISDOL) (take by mouth with food 3times a [...] which included preparing to see the patient, lpnn-dv-inzg patient care, completing clinical documentation, performing a medically appropriate examination, counseling and educating the patient/family/caregiver, ordering medications, tests, or procedures, and independently interpreting results (not separately reported). Jose Najera MD, CPE Hematology and Oncology Services Provided at: [place], [place] CC: Madelaine Ferris MD [address] [facility] [address] documented in this encounter [facility] 12-16-2022 Miscellaneous Notes Pt notified and verbalizes understanding. Clerical: Please change tomorrow's appointment to a phone visit at the end of Wilmer's day. Preferred number is [phone]. In addition, pt will be in next 12/25/22 @ 1130 for her B12 shot. Please add her to the MA schedule. Thanks! Pamella Bettencourt RN That would be okay. Have her added at the end of the day. Thanks, Wilmer Driver APRN.[employer] Pt is scheduled for RV w/ Wilmer & B12 tomorrow. She would like to make this a telephone appointment instead and come back next week for B12. Pt had her labs drawn last week. Wilmer: Any objections to meeting w/ pt over the phone tomorrow or would you prefer we switch her to Mason's schedule? Pamella Bettencourt RN documented in this encounter [facility] 12-13-2022 Miscellaneous Notes No clinical utility or [...] Enma Hamm RN documented in this encounter [facility] 11-24-2022 Miscellaneous Notes Please call patient Thank [...] Lynne Ni MD documented in this encounter [facility] 11-19-2022 Nurse Note Patient Identification confirmed: yes. Injection given and documented on JUL per provider order. Margret Cuenca documented in this encounter [facility] 10-29-2022 Note [facility] 10-22-2022 Note [facility] 10-22-2022 Nurse Note Patient Identification confirmed: yes. Injection given and documented on JUL per provider order. Stacy Gutiérrez Ma documented in this encounter [facility] 10-22-2022 Instructions Jose Najera MD - 10/22/2022 11:43 AM EDT B12 Shot today and every 4 weeks. Continue Folic acid. Follow up in 8 Weeks - labs 1 week before. documented in this encounter [facility] 10-22-2022 History of Present illness Narrative Images from the original note were not included. NAME: Jones Haley CLINIC NO.: [id number] DATE OF SERVICE: October 22, 2022 (Marquis) Some elements in this clinic note that are critical to medical decision making have been carefully reviewed and included from a prior clinic note dated: August 27, 2022 (Bob) Referring Provider: Dr. Madelaine Ferris Additional Clinicians involved in Jones Melissa Haley's care: DIAGNOSIS: Multiple symptoms ASSESSMENT: 42 year old woman with generalized malaise for approximately 2 years. She has lymphadenopathy that has been biopsied in 2021 that came back negative and she reports [...] [facility]. B12 helps especially [...] She follows with multiple doctors including and production operations inspector, oil well engineer, marine cargo specialist and PCP. She has been told they [...] which included preparing to see the patient, nqth-ns-zliw patient care, completing clinical documentation, performing a medically appropriate examination, counseling and educating the patient/family/caregiver, ordering medications, tests, or procedures, and independently interpreting results (not separately reported). Jose Najera MD, CPE Hematology and Oncology Services Provided at: [place], [place] CC: Madelaine Ferris MD [address] [facility] [address] documented in this encounter [facility] 09-24-2022 Nurse Note Patient Identification confirmed: yes. Injection given and documented on JUL per provider order. Stacy Gutiérrez Ma documented in this encounter [facility] 09-08-2022 Miscellaneous Notes Pharmacy-Reviewed Medication History Patient Name:.Jones Haley : 1980 Patient Contact Attempt: First attempt Adherence Packing Program Accepted? No, patient does not wish to participate. Patient is not eligible for adherence packaging because PCP is not within [facility]. Patient wishes to continue at [facility] since medication bottles will look the same and then she can pick-up the medications when she needs them. Stacy Hernandez September 08, 2022 2:28 PM [facility] [phone] documented in this encounter [facility] 09-07-2022 History of Present illness Narrative [...] which included preparing to see the patient, bged-gi-hibw patient care, completing clinical documentation, performing a medically appropriate examination, counseling and educating the patient/family/caregiver, ordering medications, tests, or procedures, and communicating with other HCPs (not separately reported). I have communicated my name and active licensure. The patient's identity and physical location were verified at the time of this visit. Either the patient or their legal franchise sales representative has been informed of the risks and benefits of -- and alternatives to -- treatment through a remote evaluation and consents to proceed with the evaluation remotely. Christie Phan MD, MA, [facility] Lifestyle Medicine Specialist documented in this encounter [facility] 09-07-2022 Nurse Note Called pt to do intake for video visit pt unavailable lft vm msg sent my chart. Milagro Mendiola MA documented in this encounter [facility] 08-31-2022 Miscellaneous Notes called [facility] pharmacy - pharmacy had 1 refill remaining no action needed from our office documented in this encounter [facility] 08-27-2022 Nurse Note Patient Identification confirmed: yes. Injection given and documented on JUL per provider order. Stacy Gutiérrez Ma documented in this encounter [facility] 08-27-2022 History of Present illness Narrative Images from the original note were not included. NAME: Jones Haley [facility] NO.: [id number] DATE OF SERVICE: August 27, 2022 (Bob) [...] She follows with multiple doctors including and production operations inspector, oil well engineer, marine cargo specialist and PCP. She has been told they [...] stomach other (Crohn's [Other]) Mother Wilmer Driver, PORCELAIN ENAMEL INSTALLER.[facility] Hematology and Oncology Services Provided at: [place], [place] CC: Madelaine Ferris MD [address] [facility] [address] I spent a total of 30 minutes on the date of the service which included preparing to see the patient, romk-oo-swoy patient care, completing clinical documentation, obtaining and/or reviewing separately obtained history, performing a medically appropriate examination, counseling and educating the patient/family/caregiver, ordering medications, tests, or procedures, independently interpreting results (not separately reported), and communicating results to the patient/family/caregiver. documented in this encounter [facility] 08-19-2022 Miscellaneous Notes -noted MyChart message read by patient 08/19/22 . Last read by Jones Haley at 3:33 PM on 08/19/2022 Please Call patient if MyChart note not read to review results/released to My Chart if tests completed at [facility]: Improved/ mildly high normal inflammatory test- will monitor. Improved/mildly low vitamin b12- take over the counter 8591-8075 mcg daily. Improved/ normal rest of rheum [...] Lynne Ni MD documented in this encounter [facility] 08-18-2022 Miscellaneous Notes MC read by patient. [...] Lynne Ni MD documented in this encounter [facility] 08-10-2022 Miscellaneous Notes [facility] requesting refill, patient never started according to the chart and I have not seen her in follow-up. [facility] Pharmacy request for the following refill(s): Requested Prescriptions Pending Prescriptions Disp Refills DULoxetine (CYMBALTA) 20 mg capsule [Pharmacy Med Name: DULOXETINE HCL DR 20 MG CAP] 30 capsule 2 Sig: TAKE 1 CAPSULE BY MOUTH ONCE DAILY Please review and advise. Jami Everett Cma documented in this encounter [facility] 07-27-2022 Instructions Lexus Heck APRN.TRUE - 07/27/2022 9:12 PM EST [...] treatment, there are resources available at the [facility] such as a nutrition consultation or referral to weight management programs at our [facility]. Please let us know if we can [...] the central scheduling system for the [facility] at [phone]. [facility] now offers direct scheduling for patients to schedule appointments. Virtual visits are also available. If not covered by your insurance, there is a 35% discount. Please contact your insurance to determine coverage. Call the office at [phone], option #5 for questions. documented in this encounter [facility] 07-27-2022 History of Present illness Narrative Images from the original note were not included. [facility] Virtual Visit Follow up/ [...] will have a prescription sent to a [employer] company - [facility] who will be calling you in the next 1-2 weeks or so. Please call them directly or us if you do not hear from them in this time frame. - Will request formal mask fitting - You should be eligible for new supplies approximately every 3-6 months, depending on your insurance coverage. - If your mask doesn't fit well, call the [employer] company before 30 days are up to [...] to ensure the best time for you. [facility] on 04/13/22 CONSULT TO SLEEP MEDICINE - ADULT CPAP/BIPAP/OTHER PAP THERAPY ORDER Lawanda Miranda MD Interval history : Here for follow up for sleep apnea management. SLEEP APNEA Sleep apnea type : JOSE RAFAEL Most Recent Apnea-Hypopnea Index (AHI): 5.3 Treatment : PAP therapy DME: Josh Reese DME fax: [phone] DME ph: [phone] PAP History: Current PAP settin-15 cm H2O. [...] or near accidents due to drowsy drivin [place] Sleepiness Scale 04/12/2022 07/23/2022 Score 4 (No [...] symptoms. - Return Visit in 6 months. Lexus Heck APRN.TRUE I spent a total of 30 minutes on the date of the service which included preparing to see the patient, completing clinical documentation, counseling and educating the patient/family/caregiver and ordering medications, tests, or procedures. documented in this encounter [facility] 07-24-2022 Miscellaneous Notes Patient called today. : [...] patient specific tasks. documented in this encounter [facility] 07-22-2022 Miscellaneous Notes Host Committeehart message sent documented in this encounter [facility] 05-20-2022 History of Present illness Narrative Patient Identification confirmed: yes. Injection given and documented on JUL per provider order. Kenzie Shannon documented in this encounter [facility] 05-20-2022 Miscellaneous Notes Addended by: JOSE NAJERA on: 05/20/2022 02:27 PM Modules accepted: Orders documented in this encounter [facility] 05-20-2022 Instructions Jose Najera MD - 05/20/2022 2:23 PM EST B12 Shot Today and every 4 weeks Get fit for CPAP mask and setting this 05/28/2021 Continue Folic acid. RTC in 8 Weeks - labs 1 week before. documented in this encounter [facility] 05-20-2022 History of Present illness Narrative Images from the original note were not included. NAME: Jones Haley CLINIC NO.: [id number] DATE OF SERVICE: May 20, 2022 (Marquis) [...] decreasing. Initial Visit, March 04, 2022: Jones Melissa Haley presents today Hematology and Oncology evaluation. [...] which included preparing to see the patient, umhe-zz-lmjz patient care, completing clinical documentation, performing a medically appropriate examination, counseling and educating the patient/family/caregiver, ordering medications, tests, or procedures, and independently interpreting results (not separately reported). Jose Najera MD, [facility] Hematology and Oncology Services Provided at: [place], [place] CC: Jose Najera [address] [place] [address] [address] [place] [id number] Madelaine Ferris MD, [address] [place] [id number] CC: Madelaine Ferris MD [address] [place], [place] [id number] documented in this encounter [facility] 05-05-2022 Miscellaneous Notes Faxed order, office notes, demographics, and sleep study to: DME name: [facility] fax: [phone] DME ph: [phone] Confirmation received. documented in this encounter [facility] 05-05-2022 Miscellaneous Notes MyChart message sent documented in this encounter [facility] 05-05-2022 Miscellaneous Notes [facility] received your PAP order. Due to a major [employer] recall and manufacturing shortage, we are unable to fulfill the request to provide your patient with a CPAP/BIPAP machine at this time. We will keep the request on file and provide when inventory is available or you can forward the order to another DME provider such as [facility], [employer] or [employer]. Caring for our patients is our top priority and we apologize for this delay. Thank you for your patience during this time. [phone] #1 documented in this encounter [facility] 04-24-2022 Miscellaneous Notes After review of Jones's referral, it was determined that the visit needed to be in person to allow for detailed physical exam for connective tissue disorder evaluation. I called today to discuss her concerns about in-person visit for connective tissue disorder evaluation. She did not report hypermobility, however, she noted that her allergy doctor has noted concern for EDS. Her oil well engineer has told her that she has Lupus. Based on her history, I noted we can offer in-person evaluations for herself and/or her son to see if any genetic testing may be useful. I validated and provided support on the difficulty with her ambulation and transport concerns. I noted [facility] does not have other locations and only available at [facility]. I offered social work and/or transport assistance for the visit. She declined this and will discuss with her regarding the transport. She verbalized understanding the reasons for in-person evaluation recommended. She has the [facility] line and will call to reschedule for an in-person evaluation at [facility]. Luann Lance MD Client Development Manager, Associate Staff [facility] documented in this encounter [facility] 04-22-2022 Miscellaneous Notes Reached out to Jones [...] copy of the report. Confirmed patient's email [email or web address] Eliza Licea Genetic Counselor Power System Dispatcher documented in this encounter [facility] 03-31-2022 Miscellaneous Notes [facility] pharmacy electronically requests the following refill(s) Requested Prescriptions Pending Prescriptions Disp Refills DULoxetine (CYMBALTA) 20 mg capsule [Pharmacy Med Name: DULOXETINE HCL DR 20 MG CAP] 30 capsule 2 Sig: TAKE 1 CAPSULE BY MOUTH ONCE DAILY Renate Lawrence MA documented in this encounter [facility] 03-30-2022 Miscellaneous Notes LVM and sent Host Committeehart regarding Dr. Nelson's directive. Please see mychart message. Please contact patient and confirm that she has not previously received pneumovax. If not, then she should receive the pneumovax (can be done through her PCP if she prefers). She would need post-vaccination labs with us after at least 6 weeks. Thanks. Misty Nelson MD documented in this encounter [facility] 03-30-2022 Miscellaneous Notes LVM and sent MyChart regarding Dr. Nelson's directive. documented in this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 Chronic fatigue syndrome [facility] Diagnosis JOSE RAFAEL (obstructive sleep apnea)- Primary Obstructive sleep apnea (adult) (pediatric) [facility] Diagnosis Other systemic lupus erythematosus with other organ involvement (HCC)- Primary Family history of Crohn's disease Family history of other digestive disorders Fibromyalgia Mylagia and myositis, unspecified [facility] Diagnosis Other systemic lupus erythematosus with other organ involvement (HCC)- Primary Elevated LFTs Other abnormal blood chemistry Anemia of chronic disease Anemia of other chronic disease 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 [place] [facility] 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-term (current) use of other medications [facility] Diagnosis 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 Other vitamin B12 deficiency anemia Elevated sed rate Elevated sedimentation rate [facility] Diagnosis Megaloblastic anemia due to [...] Other abnormal glucose [facility] 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 Other vitamin B12 deficiency anemia Elevated sed rate Elevated sedimentation rate [facility] Diagnosis 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 Other vitamin B12 deficiency anemia Elevated sed rate Elevated sedimentation rate [facility] Diagnosis 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 Other vitamin B12 deficiency anemia Elevated sed rate Elevated sedimentation rate High total serum IgM Chronic fatigue and malaise Chronic fatigue syndrome Obstructive sleep apnea syndrome Obstructive sleep apnea (adult) (pediatric) [facility] Diagnosis 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 Other vitamin B12 deficiency anemia Elevated sed rate Elevated sedimentation rate [facility] Diagnosis Other systemic lupus erythematosus with other organ involvement (HCC) 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-term (current) use of other medications [facility] Diagnosis 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 Other vitamin B12 deficiency anemia Chronic fatigue and malaise Chronic fatigue syndrome [facility] Diagnosis High total serum IgM- Primary Low serum IgG for age Current smoker Tobacco use disorder [facility]* Diagnosis Obesity, Class II, BMI 35-39.9 Obesity, unspecified Prediabetes Other abnormal glucose [facility] Diagnosis 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 Other vitamin B12 deficiency anemia Elevated sed rate Elevated sedimentation rate [facility] Diagnosis Other systemic lupus erythematosus with other organ involvement (HCC)- Primary Vitamin D deficiency Unspecified vitamin D deficiency Elevated LFTs Other abnormal blood chemistry Anemia of chronic disease Anemia of other chronic disease Elevated sed rate Elevated sedimentation rate Elevated C-reactive protein (CRP) [facility] Diagnosis Other systemic lupus erythematosus [...] Bilateral wrist pain 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, forearm correction 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-term (current) use of steroids Steroid-induced osteoporosis Other osteoporosis 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 [facility] Diagnosis Systemic lupus erythematosus with other organ involvement (HCC)- Primary [facility]* Diagnosis 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 Other vitamin B12 deficiency anemia High total serum IgM Elevated sed rate Elevated sedimentation rate [facility] Diagnosis Other systemic lupus erythematosus with other organ involvement (HCC)- Primary [facility] Diagnosis Other systemic lupus erythematosus with other organ involvement (HCC) 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-term (current) use of other medications [facility] Diagnosis 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 Other vitamin B12 deficiency anemia Elevated sed rate Elevated sedimentation rate [facility] Diagnosis 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 Other vitamin B12 deficiency anemia Elevated sed rate Elevated sedimentation rate Chronic fatigue and malaise Chronic fatigue syndrome High total serum IgM JOSE RAFAEL (obstructive sleep apnea) Obstructive sleep apnea (adult) (pediatric) [facility]* Diagnosis Insulin resistance, unspecified- Primary Depression, recurrent (HCC) Major depressive disorder, recurrent episode, unspecified Chronic pain syndrome [facility] Diagnosis Systemic lupus erythematosus, unspecified SLE type, unspecified organ involvement status (HCC)- Primary [facility] Diagnosis 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 Other vitamin B12 deficiency anemia Elevated sed rate Elevated sedimentation rate [facility]* Diagnosis 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 Other vitamin B12 deficiency anemia Elevated sed rate Elevated sedimentation rate [facility]* Diagnosis Obesity, Class III, BMI >= 40- Primary Morbid obesity FUO (fever of unknown origin) Fever, unspecified Other chronic pain [facility]* Diagnosis Obesity, Class III, BMI >= 40 Morbid obesity [facility]* Diagnosis Obesity, Class III, BMI >= 40- Primary Morbid obesity Other chronic pain documented in this encounter [facility] note* Diagnosis Irregular heart rate- Primary Essential hypertension Unspecified essential hypertension Autonomic dysfunction Obstructive sleep apnea syndrome Obstructive sleep apnea (adult) (pediatric) Primary hypertension Unspecified essential hypertension documented in this encounter [facility] Work Phone: Evaluation note* Diagnosis Autoimmune disease (CMS/HCC)- Primary Autoimmune disease, not elsewhere classified Autonomic dysfunction Lumbosacral radiculopathy Thoracic or lumbosacral neuritis or radiculitis, unspecified Bilateral leg weakness Muscle weakness (generalized) [facility]* Diagnosis Shortness of breath- Primary Paroxysmal supraventricular tachycardia PAC (premature atrial contraction) Supraventricular premature beats Current smoker Systemic lupus erythematosus, unspecified SLE type, unspecified organ involvement status (CMS/HCC) Palpitations Obstructive sleep apnea syndrome Obstructive sleep apnea (adult) (pediatric) Morbid obesity (CMS/HCC) Morbid obesity Bilateral lower extremity edema documented in this encounter [facility] Work Phone: Evaluation note* Diagnosis 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 Other vitamin B12 deficiency anemia Elevated sed rate Elevated sedimentation rate documented in this encounter [facility] note* Diagnosis Systemic lupus erythematosus with other organ involvement (HCC)- Primary [facility] Diagnosis Systemic lupus erythematosus with other organ involvement (HCC)- Primary documented in this encounter [facility] note* Diagnosis 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 Other vitamin B12 deficiency anemia Elevated sed rate Elevated sedimentation rate [facility]* Diagnosis Other systemic lupus erythematosus with other organ involvement (HCC)- Primary Vitamin D deficiency Unspecified vitamin D deficiency Elevated LFTs Other abnormal blood chemistry Anemia of chronic disease Anemia of other chronic disease Elevated sed rate Elevated sedimentation rate Elevated C-reactive protein (CRP) [facility]* Diagnosis 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 Other vitamin B12 deficiency anemia Obstructive sleep apnea syndrome Obstructive sleep apnea (adult) (pediatric) Chronic fatigue and malaise Chronic fatigue syndrome High total serum IgM JOSE RAFAEL (obstructive sleep apnea) Obstructive sleep apnea (adult) (pediatric) Somnolence, daytime Hypersomnia, unspecified [facility] Diagnosis Elevated sed rate- Primary Elevated sedimentation rate Megaloblastic anemia due to vitamin B12 deficiency Other vitamin B12 deficiency anemia documented in this encounter [facility] general Narrative - Reported* Type Description Date Medical History hyperlipidemia Medical History insulin resistance Medical History CMV Surgical History cyst removal pilonidal Surgical History D&C Hospitalization History Vocation Other Reason for referral (narrative)* Diagnostic Procedure Only (Routine) - Pending Review Specialty Diagnoses / Procedures Referred By Contac t Referred To Contact XR IMAGING Diagnoses Steroid-induced osteoporosis Procedures DXA-FOREARM SKELETON DXA BONE DENSITY STUDY SITES APPENDICLR Lynne Perera MD [address] [place] [address] [place] [id number] Referral ID Status Reason Start Date Expiration Date Visits Requested Visits Authorized [id number] Pending Review Auto-Generat ed Referral 02/04/2023 03/05/2024 1 1 [facility] for referral (narrative)* Consultation (Routine) - Authorized Specialty Diagnoses / Procedures Referred By Contac t Referred To Contact Cardiology Diagnoses Irregular heart rate Essential hypertension Autonomic dysfunction Obstructive sleep apnea syndrome Primary hypertension Procedures Follow Up In Cardiology Michelle Britton APRN-CORPORATE PILOT [address] [facility] [address] [place] [address] Aurora Patel MD [address] [facility] [address] [place] [address] Referral ID Status Reason Start Date Expiration Date V isits Requested Visits Authorized [id number] Authorized 06/09/2023 06/08/2024 1 1 * Cardiovascular (Routine) - Pending Review Specialty Diagnoses / Procedures Referred By Contac t Referred To Contact Cardiology Diagnoses Irregular heart rate Procedures Holter Or Event Tax Evaluator Michelle Britton APRN-CNP [address] [facility] [address] [place] [address] Referral ID Status Reason Start Date Expiration Date V isits Requested Visits Authorized Pending Review 06/09/2023 06/08/2024 1 1 * CV Imaging (Routine) - Pending Review Specialty Diagnoses / Procedures Referred By Contac t Referred To Contact Cardiology Diagnoses Irregular heart rate Obstructive sleep apnea syndrome Procedures Transthoracic Echo (TTE) Complete MI ECHO TTHRC R-T 2D W/WOM-MODE COMPL SPEC&COLR D [facility] [address] [facility] [address] [place] [address] Referral ID Status Reason Start Date Expiration Date Visits Requested Visits Authorized Pending Review Perform Procedure 06/09/2023 06/08/2024 1 1 * Cardiovascular (Routine) - Authorized Specialty Diagnoses / Procedures Referred By Contiliana t Referred To Contact Diagnoses Irregular heart rate Procedures ECG 12 Lead Michelle Britton APRN-CNP [address] [facility] [address] [place] [address] Referral ID Status Reason Start Date Expiration Date V isits Requested Visits Authorized [id number] Authorized 06/09/2023 06/08/2024 1 1 [facility] Work Phone: Summary Purpose Family History No Family History Records FoundNo Family History Records FoundNo Family History Records FoundNo Family History Records FoundNo Family History Records FoundNo Family History Records FoundNo Family History Records FoundNo Family History Records FoundNo Family History Records Found Advance Directives No Advanced Directives Records FoundDocuments on File Type Date Recorded Patient Hazardous Waste Technician Expl anation ACP-Advance Directive ACP-Power of Registered Pharmacy Technician Latest Code Status on File Code Status Date Activated Date Inactivated Comments Full Code 10/07/2020 8:32 AM Documents on File Type Date Recorded Patient Hazardous Waste Technician Expl anation Advance Directive(s) 09/13/2015 8:36 AM Reason for Referral Specialty Diagnoses / Procedures Referred By Contac t Referred To Contact Diagnoses Paroxysmal supraventricular tachycardia PAC (premature atrial contraction) Procedures ECG 12 Lead Lois Holm MD [address] [place] [address] 2, [address] [address] Referral ID Status Reason Start Date Expiration Date V isits Requested Visits Authorized [id number] Authorized 07/13/2023 07/12/2024 1 1 Specialty Diagnoses / Procedures Referred By Contac t Referred To Contact Cardiology Diagnoses Shortness of breath Paroxysmal supraventricular tachycardia PAC (premature atrial contraction) Procedures Follow Up In Cardiology Lois Holm MD [address] [place] [address] 2, [address] [address] Lois Holm MD [address] [place] [address] 2, [address] [address] Referral ID Status Reason Start Date Expiration Date V isits Requested Visits Authorized [id number] Authorized 07/13/2023 07/12/2024 1 1 Specialty Diagnoses / Procedures Referred By Contac t Referred To Contact Diagnoses Obesity, Class III, BMI 40-49.9 (morbid obesity) (HCC) Pre-diabetes Christie Phan MD [address] [phone] Referral ID Status Reason Start Date Expiration Date Visits Re quested Visits Authorized [id number] Closed 1 1 Specialty Diagnoses / Procedures Referred By Contac t Referred To Contact Diagnoses Wound healing, delayed Procedures CONSULT TO MEDICAL GENETICS - GENERAL OFFICE/OUTPATIENT [facility] 60-74 MINUTES MEDICAL GENETICS COUNSELING EACH 30 MINUTES Misty Nelson MD [facility] [place] [address] Genomic Medicine Tobias [address] [place] [id number] Referral ID Status Reason Start Date Expiration Date Visits Requested Visits Authorized [id number] Authorized PCP Requested Referral Auto-Generate d Referral 2 03/10/2023 1 1 Specialty Diagnoses / Procedures Referred By Contac t Referred To Contact Neurology Diagnoses POTS (postural orthostatic tachycardia syndrome) Procedures CONSULT TO NEUROLOGY OFFICE/OUTPATIENT [facility] 60-74 MINUTES Christie Phan MD [address] [place], [place] [id number] Referral ID Status Reason Start Date Expiration Date Visits Requested Visits Authorized [id number] Authorized PCP Requested Referral 2 03/12/2023 1 1 Specialty Diagnoses / Procedures Referred By Contac t Referred To Contact Immunology Diagnoses Raised level of immunoglobulins Procedures CONSULT TO IMMUNOLOGY OFFICE/OUTPATIENT [facility] 60-74 MINUTES Christie Phan MD [address] [place] [address] Referral ID Status Reason Start Date Expiration Date V isits Requested Visits Authorized [id number] Closed PCP Requested Referral 03/09/2022 03/09/2023 1 1 Specialty Diagnoses / Procedures Referred By Contac t Referred To Contact [facility] Diagnoses Somnolence, daytime Snoring Procedures HOME SLEEP APNEA TEST (HSAT) SLEEP STD AIRFLOW HRT RATE&O2 SAT EFFORT UNATT Christie Phan MD [address] [place] [address] Neurological [place]ias [address] [phone] Referral ID Status Reason Start Date Expiration Date Visits Requested Visits Authorized [id number] Authorized Auto-Generat ed Referral 2 03/09/2023 1 1 Specialty Diagnoses / Procedures Referred By Contac t Referred To Contact Diagnoses Somnolence, daytime Chronic fatigue and malaise Obesity, unspecified classification, unspecified obesity type, unspecified whether serious comorbidity present Procedures CONSULT TO LIFESTYLE MEDICINE MD OFFICE/OUTPATIENT [facility] 60-74 MINUTES Jose Najera MD [address] [place] [address] [place] [address] Referral ID Status Reason Start Date Expiration Date V isits Requested Visits Authorized [id number] Closed PCP Requested Referral 03/04/2022 03/04/2023 1 1 Specialty Diagnoses / Procedures Referred By Nahid tran Referred To Contact Diagnoses Somnolence, daytime Snoring Procedures CONSULT TO SLEEP MEDICINE - ADULT OFFICE/OUTPATIENT [facility] 60-74 MINUTES Jose Najera MD [address] [place] [address] [place] [address] Referral ID Status Reason Start Date Expiration Date Visits Requested Visits Authorized [id number] Authorized PCP Requested Referral 2 03/04/2023 1 [...] DATE CREATED AUTHOR AUTHOR'S ORGANIZ ATION 09/23/2018 [facility] DATE CREATED AUTHOR AUTHOR'S ORGANIZ ATION 12/10/2018 [facility] DATE CREATED AUTHOR AUTHOR'S ORGANIZ ATION 01/13/2019 [facility] DATE CREATED AUTHOR AUTHOR'S ORGANIZ ATION 06/28/2021 [facility] DATE CREATED AUTHOR AUTHOR'S ORGANIZ ATION [facility]20[facility] DATE CREATED AUTHOR AUTHOR'S ORGANIZ ATION 07/14/2023 [facility] tals Ambulatory DATE CREATED AUTHOR AUTHOR'S ORGANIZ ATION 09/13/2023 [facility] EPIC DATE CREATED AUTHOR AUTHOR'S ORGANIZ ATION 10/02/2023 [facility] Reason for Visit (unrecogniz ed section and content) Status Reason Specialty Diagnoses / Procedures Referre d By Contact Referred To Contact [facility] Reason Comments Pain ongoing generalized pain. [...] HIGH MDM 60-74 MINUTES Jose Najera MD [address] [place] [address] [place] [address] Referral ID Status Reason Start Date Expiration Date V isits Requested Visits Authorized [id number] Closed PCP Requested Referral 03/04/2022 03/04/2023 1 1 Reason Comments High Total serum IgM Anemia Reason Comments Consult Specialty Diagnoses / Procedures Referred By Contac t Referred To Contact Immunology Diagnoses Raised level of immunoglobulins Procedures CONSULT TO IMMUNOLOGY OFFICE/OUTPATIENT NEW HIGH MDM 60-74 MINUTES Christie Phan MD [address] [address] Referral ID Status Reason Start Date Expiration Date V isits Requested Visits Authorized [id number] Closed PCP Requested Referral 03/09/2022 03/09/2023 1 1 Reason Comments Pneumovax Reason Comments Refill Request Reason Comments Appointment Rubber Process Hand - Other Reason Comments Future Appointment Scheduling questions /concerns Reason Comments PAP Therapy Follow Up Reason Comments PAP Rx Faxed [facility] [place] [place] Josh Reese Reason Comments Anemia 8 week [...] rate Procedures ECG 12 Lead Michelle Britton, PORCELAIN ENAMEL INSTALLER-CORPORATE PILOT [address] [facility] [address] [place] [address] Referral ID Status Reason Start Date Expiration Date V isits Requested Visits Authorized [id number] Authorized 06/09/2023 06/08/2024 1 1 Reason Comments New Patient Visit Leg Swelling, test r esults from [place] Specialty Diagnoses / Procedures Referred By Contac t Referred To Contact Diagnoses Paroxysmal supraventricular tachycardia PAC (premature atrial contraction) Procedures ECG 12 Lead Lois Holm MD [address] [facility] [address] [place] [address] Referral ID Status Reason Start Date Expiration Date V isits Requested Visits Authorized [id number] Authorized 07/13/2023 07/12/2024 1 1 Reason Onset Date Comments SPP Inflammatory Conditions - Medication Refill 07/13/2023 Benlysta Reason Onset Date Comments SPP Inflammatory Conditions - Medication Refill 08/12/2023 Benlysta Reason Onset Date Comments SPP Inflammatory Conditions - Medication Refill 09/13/2023 Benlysta Ordered Prescriptions (unrec ognized section and [...] or prosecute any alcohol or drug abuse patient.[facility] the event this information is protected by the Federal Confidentiality of Alcohol and Drug Abuse Patient Records regulations: The Federal rules restrict any use of the information to criminally investigate or prosecute any alcohol or drug abuse patient.[facility] the event this information is protected by the Federal Confidentiality of Alcohol and Drug Abuse Patient Records regulations: The Federal rules restrict any use of the information to criminally investigate or prosecute any alcohol or drug abuse patient.[facility] Campus[facility] the event this information is protected by the Federal Confidentiality of Alcohol and Drug Abuse Patient Records regulations: The Federal rules restrict any use of the information to criminally investigate or prosecute any alcohol or drug abuse patient.[facility] Campus[facility] the event this information is protected by the Federal Confidentiality of Alcohol and Drug Abuse Patient Records regulations: The Federal rules restrict any use of the information to criminally investigate or prosecute any alcohol or drug abuse patient.[facility] Campus[facility] the event this information is protected by the Federal Confidentiality of Alcohol and Drug Abuse Patient Records regulations: The Federal rules restrict any use of the information to criminally investigate or prosecute any alcohol or drug abuse patient.[facility] Campus[facility] the event this information is protected by the Federal Confidentiality of Alcohol and Drug Abuse Patient Records regulations: The Federal rules restrict any use of the information to criminally investigate or prosecute any alcohol or drug abuse patient.[facility] CampusIn the event this information is protected by the Federal Confidentiality of Alcohol and Drug Abuse Patient Records regulations: The Federal rules restrict any use of the information to criminally investigate or prosecute any alcohol or drug abuse patient.[facility] CampusIn the event this information is protected by the Federal Confidentiality of Alcohol and Drug Abuse Patient Records regulations: The Federal rules restrict any use of the information to criminally investigate or prosecute any alcohol or drug abuse patient.[facility] Campus[facility] the event this information is protected by the Federal Confidentiality of Alcohol and Drug Abuse Patient Records regulations: The Federal rules restrict any use of the information to criminally investigate or prosecute any alcohol or drug abuse patient.[facility] Campus[facility] the event this information is protected by the Federal Confidentiality of Alcohol and Drug Abuse Patient Records regulations: The Federal rules restrict any use of the information to criminally investigate or prosecute any alcohol or drug abuse patient.[facility] Campus[facility] the event this information is protected by the Federal Confidentiality of Alcohol and Drug Abuse Patient Records regulations: The Federal rules restrict any use of the information to criminally investigate or prosecute any alcohol or drug abuse patient.[facility] CampusIn the event this information is protected by the Federal Confidentiality of Alcohol and Drug Abuse Patient Records regulations: The Federal rules restrict any use of the information to criminally investigate or prosecute any alcohol or drug abuse patient.[facility] CampusIn the event this information is protected by the Federal Confidentiality of Alcohol and Drug Abuse Patient Records regulations: The Federal rules restrict any use of the information to criminally investigate or prosecute any alcohol or drug abuse patient.[facility] CampusIn the event this information is protected by the Federal Confidentiality of Alcohol and Drug Abuse Patient Records regulations: The Federal rules restrict any use of the information to criminally investigate or prosecute any alcohol or drug abuse patient.[facility] CampusIn the event this information is protected by the Federal Confidentiality of Alcohol and Drug Abuse Patient Records regulations: The Federal rules restrict any use of the information to criminally investigate or prosecute any alcohol or drug abuse patient.[facility] CampusIn the event this information is protected by the Federal Confidentiality of Alcohol and Drug Abuse Patient Records regulations: The Federal rules restrict any use of the information to criminally investigate or prosecute any alcohol or drug abuse patient.[facility] CampusIn the event this information is protected by the Federal Confidentiality of Alcohol and Drug Abuse Patient Records regulations: The Federal rules restrict any use of the information to criminally investigate or prosecute any alcohol or drug abuse patient.[facility] CampusIn the event this information is protected by the Federal Confidentiality of Alcohol and Drug Abuse Patient Records regulations: The Federal rules restrict any use of the information to criminally investigate or prosecute any alcohol or drug abuse patient.[facility] CampusIn the event this information is protected by the Federal Confidentiality of Alcohol and Drug Abuse Patient Records regulations: The Federal rules restrict any use of the information to criminally investigate or prosecute any alcohol or drug abuse patient.[facility] CampusIn the event this information is protected by the Federal Confidentiality of Alcohol and Drug Abuse Patient Records regulations: The Federal rules restrict any use of the information to criminally investigate or prosecute any alcohol or drug abuse patient.[facility] CampusIn the event this information is protected by the Federal Confidentiality of Alcohol and Drug Abuse Patient Records regulations: The Federal rules restrict any use of the information to criminally investigate or prosecute any alcohol or drug abuse patient.[facility] CampusIn the event this information is protected by the Federal Confidentiality of Alcohol and Drug Abuse Patient Records regulations: The Federal rules restrict any use of the information to criminally investigate or prosecute any alcohol or drug abuse patient.[facility] CampusIn the event this information is protected by the Federal Confidentiality of Alcohol and Drug Abuse Patient Records regulations: The Federal rules restrict any use of the information to criminally investigate or prosecute any alcohol or drug abuse patient.[facility] CampusIn the event this information is protected by the Federal Confidentiality of Alcohol and Drug Abuse Patient Records regulations: The Federal rules restrict any use of the information to criminally investigate or prosecute any alcohol or drug abuse patient.[facility] CampusIn the event this information is protected by the Federal Confidentiality of Alcohol and Drug Abuse Patient Records regulations: The Federal rules restrict any use of the information to criminally investigate or prosecute any alcohol or drug abuse patient.[facility] CampusIn the event this information is protected by the Federal Confidentiality of Alcohol and Drug Abuse Patient Records regulations: The Federal rules restrict any use of the information to criminally investigate or prosecute any alcohol or drug abuse patient.[facility] CampusIn the event this information is protected by the Federal Confidentiality of Alcohol and Drug Abuse Patient Records regulations: The Federal rules restrict any use of the information to criminally investigate or prosecute any alcohol or drug abuse patient.[facility] CampusIn the event this information is protected by the Federal Confidentiality of Alcohol and Drug Abuse Patient Records regulations: The Federal rules restrict any use of the information to criminally investigate or prosecute any alcohol or drug abuse patient.[facility] CampusIn the event this information is protected by the Federal Confidentiality of Alcohol and Drug Abuse Patient Records regulations: The Federal rules restrict any use of the information to criminally investigate or prosecute any alcohol or drug abuse patient.[facility] CampusIn the event this information is protected by the Federal Confidentiality of Alcohol and Drug Abuse Patient Records regulations: The Federal rules restrict any use of the information to criminally investigate or prosecute any alcohol or drug abuse patient.[facility] [facility] the event this information is protected by the Federal Confidentiality of Alcohol and Drug Abuse Patient Records regulations: The Federal rules restrict any use of the information to criminally investigate or prosecute any alcohol or drug abuse patient.[facility] CampusIn the event this information is protected by the Federal Confidentiality of Alcohol and Drug Abuse Patient Records regulations: The Federal rules restrict any use of the information to criminally investigate or prosecute any alcohol or drug abuse patient.[facility] CampusIn the event this information is protected by the Federal Confidentiality of Alcohol and Drug Abuse Patient Records regulations: The Federal rules restrict any use of the information to criminally investigate or prosecute any alcohol or drug abuse patient.[facility] CampusIn the event this information is protected by the Federal Confidentiality of Alcohol and Drug Abuse Patient Records regulations: The Federal rules restrict any use of the information to criminally investigate or prosecute any alcohol or drug abuse patient.[facility] CampusIn the event this information is protected by the Federal Confidentiality of Alcohol and Drug Abuse Patient Records regulations: The Federal rules restrict any use of the information to criminally investigate or prosecute any alcohol or drug abuse patient.[facility] CampusIn the event this information is protected by the Federal Confidentiality of Alcohol and Drug Abuse Patient Records regulations: The Federal rules restrict any use of the information to criminally investigate or prosecute any alcohol or drug abuse patient.[facility] CampusIn the event this information is protected by the Federal Confidentiality of Alcohol and Drug Abuse Patient Records regulations: The Federal rules restrict any use of the information to criminally investigate or prosecute any alcohol or drug abuse patient.[facility] CampusIn the event this information is protected by the Federal Confidentiality of Alcohol and Drug Abuse Patient Records regulations: The Federal rules restrict any use of the information to criminally investigate or prosecute any alcohol or drug abuse patient.[facility] CampusIn the event this information is protected by the Federal Confidentiality of Alcohol and Drug Abuse Patient Records regulations: The Federal rules restrict any use of the information to criminally investigate or prosecute any alcohol or drug abuse patient.[facility] CampusIn the event this information is protected by the Federal Confidentiality of Alcohol and Drug Abuse Patient Records regulations: The Federal rules restrict any use of the information to criminally investigate or prosecute any alcohol or drug abuse patient.[facility] CampusIn the event this information is protected by the Federal Confidentiality of Alcohol and Drug Abuse Patient Records regulations: The Federal rules restrict any use of the information to criminally investigate or prosecute any alcohol or drug abuse patient.[facility] CampusIn the event this information is protected by the Federal Confidentiality of Alcohol and Drug Abuse Patient Records regulations: The Federal rules restrict any use of the information to criminally investigate or prosecute any alcohol or drug abuse patient.[facility] CampusIn the event this information is protected by the Federal Confidentiality of Alcohol and Drug Abuse Patient Records regulations: The Federal rules restrict any use of the information to criminally investigate or prosecute any alcohol or drug abuse patient.[facility] CampusIn the event this information is protected by the Federal Confidentiality of Alcohol and Drug Abuse Patient Records regulations: The Federal rules restrict any use of the information to criminally investigate or prosecute any alcohol or drug abuse patient.[facility] CampusIn the event this information is protected by the Federal Confidentiality of Alcohol and Drug Abuse Patient Records regulations: The Federal rules restrict any use of the information to criminally investigate or prosecute any alcohol or drug abuse patient.[facility] CampusIn the event this information is protected by the Federal Confidentiality of Alcohol and Drug Abuse Patient Records regulations: The Federal rules restrict any use of the information to criminally investigate or prosecute any alcohol or drug abuse patient.[facility] CampusIn the event this information is protected by the Federal Confidentiality of Alcohol and Drug Abuse Patient Records regulations: The Federal rules restrict any use of the information to criminally investigate or prosecute any alcohol or drug abuse patient.[facility] CampusIn the event this information is protected by the Federal Confidentiality of Alcohol and Drug Abuse Patient Records regulations: The Federal rules restrict any use of the information to criminally investigate or prosecute any alcohol or drug abuse patient.[facility] CampusIn the event this information is protected by the Federal Confidentiality of Alcohol and Drug Abuse Patient Records regulations: The Federal rules restrict any use of the information to criminally investigate or prosecute any alcohol or drug abuse patient.[facility] CampusIn the event this information is protected by the Federal Confidentiality of Alcohol and Drug Abuse Patient Records regulations: The Federal rules restrict any use of the information to criminally investigate or prosecute any alcohol or drug abuse patient.[facility] CampusIn the event this information is protected by the Federal Confidentiality of Alcohol and Drug Abuse Patient Records regulations: The Federal rules restrict any use of the information to criminally investigate or prosecute any alcohol or drug abuse patient.[facility] CampusIn the event this information is protected by the Federal Confidentiality of Alcohol and Drug Abuse Patient Records regulations: The Federal rules restrict any use of the information to criminally investigate or prosecute any alcohol or drug abuse patient.[facility] CampusIn the event this information is protected by the Federal Confidentiality of Alcohol and Drug Abuse Patient Records regulations: The Federal rules restrict any use of the information to criminally investigate or prosecute any alcohol or drug abuse patient.[facility] CampusIn the event this information is protected by the Federal Confidentiality of Alcohol and Drug Abuse Patient Records regulations: The Federal rules restrict any use of the information to criminally investigate or prosecute any alcohol or drug abuse patient.[facility] CampusIn the event this information is protected by the Federal Confidentiality of Alcohol and Drug Abuse Patient Records regulations: The Federal rules restrict any use of the information to criminally investigate or prosecute any alcohol or drug abuse patient.[facility] CampusIn the event this information is protected by the Federal Confidentiality of Alcohol and Drug Abuse Patient Records regulations: The Federal rules restrict any use of the information to criminally investigate or prosecute any alcohol or drug abuse patient.[facility] CampusIn the event this information is protected by the Federal Confidentiality of Alcohol and Drug Abuse Patient Records regulations: The Federal rules restrict any use of the information to criminally investigate or prosecute any alcohol or drug abuse patient.[facility] CampusIn the event this information is protected by the Federal Confidentiality of Alcohol and Drug Abuse Patient Records regulations: The Federal rules restrict any use of the information to criminally investigate or prosecute any alcohol or drug abuse patient.[facility] CampusIn the event this information is protected by the Federal Confidentiality of Alcohol and Drug Abuse Patient Records regulations: The Federal rules restrict any use of the information to criminally investigate or prosecute any alcohol or drug abuse patient.[facility] CampusIn the event this information is protected by the Federal Confidentiality of Alcohol and Drug Abuse Patient Records regulations: The Federal rules restrict any use of the information to criminally investigate or prosecute any alcohol or drug abuse patient.[facility] CampusIn the event this information is protected by the Federal Confidentiality of Alcohol and Drug Abuse Patient Records regulations: The Federal rules restrict any use of the information to criminally investigate or prosecute any alcohol or drug abuse patient.[facility] CampusIn the event this information is protected by the Federal Confidentiality of Alcohol and Drug Abuse Patient Records regulations: The Federal rules restrict any use of the information to criminally investigate or prosecute any alcohol or drug abuse patient.[facility] CampusIn the event this information is protected by the Federal Confidentiality of Alcohol and Drug Abuse Patient Records regulations: The Federal rules restrict any use of the information to criminally investigate or prosecute any alcohol or drug abuse patient.[facility] CampusIn the event this information is protected by the Federal Confidentiality of Alcohol and Drug Abuse Patient Records regulations: The Federal rules restrict any use of the information to criminally investigate or prosecute any alcohol or drug abuse patient.[facility] CampusIn the event this information is protected by the Federal Confidentiality of Alcohol and Drug Abuse Patient Records regulations: The Federal rules restrict any use of the information to criminally investigate or prosecute any alcohol or drug abuse patient.[facility] CampusIn the event this information is protected by the Federal Confidentiality of Alcohol and Drug Abuse Patient Records regulations: The Federal rules restrict any use of the information to criminally investigate or prosecute any alcohol or drug abuse patient.[facility] CampusIn the event this information is protected by the Federal Confidentiality of Alcohol and Drug Abuse Patient Records regulations: The Federal rules restrict any use of the information to criminally investigate or prosecute any alcohol or drug abuse patient.[facility] CampusIn the event this information is protected by the Federal Confidentiality of Alcohol and Drug Abuse Patient Records regulations: The Federal rules restrict any use of the information to criminally investigate or prosecute any alcohol or drug abuse patient.[facility] CampusIn the event this information is protected by the Federal Confidentiality of Alcohol and Drug Abuse Patient Records regulations: The Federal rules restrict any use of the information to criminally investigate or prosecute any alcohol or drug abuse patient.[facility] CampusIn the event this information is protected by the Federal Confidentiality of Alcohol and Drug Abuse Patient Records regulations: The Federal rules restrict any use of the information to criminally investigate or prosecute any alcohol or drug abuse patient.[facility] CampusIn the event this information is protected by the Federal Confidentiality of Alcohol and Drug Abuse Patient Records regulations: The Federal rules restrict any use of the information to criminally investigate or prosecute any alcohol or drug abuse patient.[facility] CampusIn the event this information is protected by the Federal Confidentiality of Alcohol and Drug Abuse Patient Records regulations: The Federal rules restrict any use of the information to criminally investigate or prosecute any alcohol or drug abuse patient.[facility] CampusIn the event this information is protected by the Federal Confidentiality of Alcohol and Drug Abuse Patient Records regulations: The Federal rules restrict any use of the information to criminally investigate or prosecute any alcohol or drug abuse patient.[facility] CampusIn the event this information is protected by the Federal Confidentiality of Alcohol and Drug Abuse Patient Records regulations: The Federal rules restrict any use of the information to criminally investigate or prosecute any alcohol or drug abuse patient.[facility] Care Teams (unrecognized sec tion and content) Night Manager Relationship Specialty Start Date End Date Gay Enciso, MAURILIO.CORPORATE PILOT [address] [place] [address] PCP - General Family Practice 10/24/21 Night Manager Relationship Specialty Start Date End Date Gay Enciso, MAURILIO.[employer]PORATE PILOT [address] [place] [address] PCP - General Family Medicine 10/24/21 Madelaine Ferris MD [address] [place] [address] Referring Family Medicine 02/12/22 Night Manager Relationship Specialty Start Date End Date Madelaine Ferris MD [address] [place] [address] PCP - General Family Medicine 02/27/22 Madelaine Ferris MD [address] [place] [address] Referring Family Medicine 02/12/22 Night Manager Relationship Specialty Start Date End Date Madelaine Ferris MD [address] [place] [address] PCP - General Family Medicine 02/27/22 Madelaine Ferris MD [address] [place] [address] Referring Family Medicine 02/12/22 Night Manager Relationship Specialty Start Date End Date Madelaine Ferris MD [address] [place] [place] [address] PCP - General Family Medicine 02/27/22 Madelaine Ferris MD [address] [place] [address] Referring Family Medicine 02/12/22 Night Manager Relationship Specialty Start Date End Date Madelaine Ferris MD [address] [place] [address] PCP - General Family Medicine 02/27/22 Madelaine Ferris MD [address] [place] [address] Referring Family Medicine 02/12/22 Night Manager Relationship Specialty Start Date End Date Madelaine Ferris MD [address] [place] [address] PCP - General Family Medicine 02/27/22 Madelaine Ferris MD [address] [place] [address] Referring Family Medicine 02/12/22 Night Manager Relationship Specialty Start Date End Date Madelaine Ferris MD [address] [place] [address] PCP - General Family Medicine 02/27/22 Madelaine Freris MD [address] [place] [address] Referring Family Medicine 02/12/22 Night Manager Relationship Specialty Start Date End Date Madelaine Ferris MD [address] [place] [address] PCP - General Family Medicine 02/27/22 Madelaine Ferris MD [address] [place] [address] Referring Family Medicine 02/12/22 Night Manager Relationship Specialty Start Date End Date Madelaine Ferris MD [address] [place] [address] PCP - General Family Medicine 02/27/22 Madelaine Ferris MD [address] [place] [address] Referring Family Medicine 02/12/22 Night Manager Relationship Specialty Start Date End Date Madelaine Ferris MD [address] [place] [address] PCP - General Family Medicine 02/27/22 Madelaine Ferris MD [address] [place] [address] Referring Family Medicine 02/12/22 Night Manager Relationship Specialty Start Date End Date Madelaine Ferris MD [address] [place] [address] PCP - General Family Medicine 02/27/22 Madelaine Ferris MD [address] [place] [address] Referring Family Medicine 02/12/22 Night Manager Relationship Specialty Start Date End Date Madelaine Ferris MD [address] [place] [address] PCP - General Family Medicine 02/27/22 Madelaine Ferris MD [address] [place] [address] Referring Family Medicine 02/12/22 Night Manager Relationship Specialty Start Date End Date Madelaine Ferris MD [address] [place] [address] PCP - General Family Medicine 02/27/22 Madelaine Ferris MD [address] [place] [address] Referring Family Medicine 02/12/22 Night Manager Relationship Specialty Start Date End Date Madelaine Ferris MD [address] [place] [address] PCP - General Family Medicine 02/27/22 Madelaine Ferris MD [address] [place] [address] Referring Family Medicine 02/12/22 Night Manager Relationship Specialty Start Date End Date Madelaine Ferris MD [address] [place] [address] PCP - General Family Medicine 02/27/22 Madelaine Ferris MD [address] [place] [address] Referring Family Medicine 02/12/22 Night Manager Relationship Specialty Start Date End Date Madelaine Ferris MD [address] [place] [address] PCP - General Family Medicine 02/27/22 Madelaine Ferris MD [address] [place] [address] Referring Family Medicine 02/12/22 Night Manager Relationship Specialty Start Date End Date Madelaine Ferris MD [address] [place] [address] PCP - General Family Medicine 02/27/22 Madelaine Ferris MD [address] [place] [address] Referring Family Medicine 02/12/22 Night Manager Relationship Specialty Start Date End Date Madelaine Ferris MD [address] [place] [address] PCP - General Family Medicine 02/27/22 Madelaine Ferris MD [address] [place] [address] Referring Family Medicine 02/12/22 Night Manager Relationship Specialty Start Date End Date Madelaine Ferris MD [address] [place] [address] PCP - General Family Medicine 02/27/22 Madelaine Ferris MD [address] [place] [address] Referring Family Medicine 02/12/22 Night Manager Relationship Specialty Start Date End Date Madelaine Ferris MD [address] [place] [address] PCP - General Family Medicine 02/27/22 Madelaine Ferris MD [address] [place] [address] Referring Family Medicine 02/12/22 Night Manager Relationship Specialty Start Date End Date Madelaine Ferris MD [address] [place] [address] PCP - General Family Medicine 02/27/22 Madelaine Ferris MD [address] [place] [address] Referring Family Medicine 02/12/22 Night Manager Relationship Specialty Start Date End Date Madelaine Ferris MD [address] [place] [address] PCP - General Family Medicine 02/27/22 Madelaine Ferris MD [address] [place] [address] Referring Family Medicine 02/12/22 Night Manager Relationship Specialty Start Date End Date Madelaine Ferris MD PCP - General Family Medicine 02/27/22 Madelaine Ferris MD Referring Family Medicine 02/12/22 Night Manager Relationship Specialty Start Date End Date Madelaine Ferris MD PCP - General Family Medicine 02/27/22 Madelaine Ferris MD Referring Family Medicine 02/12/22 Night Manager Relationship Specialty Start Date End Date Madelaine Ferris MD PCP - General Family Medicine 02/27/22 Madelaine Ferris MD Referring Family Medicine 02/12/22 Night Manager Relationship Specialty Start Date End Date Madelaine Ferris MD PCP - General Family Medicine 02/27/22 Madelaine Ferris MD Referring Family Medicine 02/12/22 Night Manager Relationship Specialty Start Date End Date Madelaine Ferris MD PCP - General Family Medicine 02/27/22 Madelaine Ferris MD Referring Family Medicine 02/12/22 Night Manager Relationship Specialty Start Date End Date Madelaine Ferris MD PCP - General Family Medicine 02/27/22 Madelaine Ferris MD Referring Family Medicine 02/12/22 Night Manager Relationship Specialty Start Date End Date Madelaine Ferris MD PCP - General Family Medicine 02/27/22 Madelaine Ferris MD Referring Family Medicine 02/12/22 Night Manager Relationship Specialty Start Date End Date Madelaine Ferris MD PCP - General Family Medicine 02/27/22 Madelaine Ferris MD Referring Family Medicine 02/12/22 Night Manager Relationship Specialty Start Date End Date Madelaine Ferris MD PCP - General Family Medicine 02/27/22 Madelaine Ferris MD Referring Family Medicine 02/12/22 Night Manager Relationship Specialty Start Date End Date Madelaine Ferris MD PCP - General Family Medicine 02/27/22 Madelaine Ferris MD Referring Family Medicine 02/12/22 Night Manager Relationship Specialty Start Date End Date Madelaine Ferris MD PCP - General Family Medicine 02/27/22 Madelaine Ferris MD Referring Family Medicine 02/12/22 Night Manager Relationship Specialty Start Date End Date Madelaine Ferris MD PCP - General Family Medicine 02/27/22 Madelaine Ferris MD Referring Family Medicine 02/12/22 Night Manager Relationship Specialty Start Date End Date Madelaine Ferris MD PCP - General Family Medicine 02/27/22 Madelaine Ferris MD Referring Family Medicine 02/12/22 Night Manager Relationship Specialty Start Date End Date Madelaine Ferris MD PCP - General Family Medicine 02/27/22 Madelaine Ferrsi MD Referring Family Medicine 02/12/22 Night Manager Relationship Specialty Start Date End Date Madelaine Ferris MD PCP - General Family Medicine 02/27/22 Madelaine Ferris MD Referring Family Medicine 02/12/22 Night Manager Relationship Specialty Start Date End Date Madelaine Ferris MD PCP - General Family Medicine 02/27/22 Madelaine Ferris MD Referring Family Medicine 02/12/22 Night Manager Relationship Specialty Start Date End Date Madelaine Ferris MD PCP - General Family Medicine 02/27/22 Madelaine Ferris MD Referring Family Medicine 02/12/22 Night Manager Relationship Specialty Start Date End Date Madelaine Ferris MD PCP - General Family Medicine 02/27/22 Madelaine Ferris MD Referring Family Medicine 02/12/22 Night Manager Relationship Specialty Start Date End Date Madelaine Ferris MD PCP - General Family Medicine 02/27/22 Madelaine Ferris MD Referring Family Medicine 02/12/22 Night Manager Relationship Specialty Start Date End Date Madelaine Ferris MD PCP - General Family Medicine 02/27/22 Madelaine Ferris MD Referring Family Medicine 02/12/22 Night Manager Relationship Specialty Start Date End Date Madelaine Ferris MD PCP - General Family Medicine 02/27/22 Madelaine Ferris MD Referring Family Medicine 02/12/22 Night Manager Relationship Specialty Start Date End Date Madelaine Ferris MD PCP - General Family Medicine 02/27/22 Madelaine Ferris MD Referring Family Medicine 02/12/22 Night Manager Relationship Specialty Start Date End Date Madelaine Ferris MD PCP - General Family Medicine 02/27/22 Madelaine Ferris MD Referring Family Medicine 02/12/22 Night Manager Relationship Specialty Start Date End Date Madelaine Ferris MD PCP - General Family Medicine 02/27/22 Madelaine Ferris MD Referring Family Medicine 02/12/22 Night Manager Relationship Specialty Start Date End Date Madelaine Ferris MD PCP - General Family Medicine 02/27/22 Madelaine Ferris MD Referring Family Medicine 02/12/22 Night Manager Relationship Specialty Start Date End Date Madelaine Ferris MD PCP - General Family Medicine 02/27/22 Madelaine Ferris MD Referring Family Medicine 02/12/22 Night Manager Relationship Specialty Start Date End Date Charles Mitchell DO [address] [place] [id number] PCP - General 10/22/18 Michelle Britton, [employer]ER[employer]PORATE PIL[employer] [address] [facility] [address] [place] [address] Nurse Practitioner Cardiology 06/08/23 Night Manager Relationship Specialty Start Date End Date Gay Enciso [employer]ATE [employer] [address] [place] [address] PCP - General 07/13/23 Michelle Britton [employer]PORATE [employer] [address] [facility] [address] [place] [address] Nurse Practitioner Cardiology 06/08/23 Aurora Patel MD [address] [facility] [address] [place] [address] Consulting Physician Cardiology 06/23/23 Night Manager Relationship Specialty Start Date End Date Madelaine Ferris MD PCP - General Family Medicine 02/27/22 Madelaine Ferris MD Referring Family Medicine 02/12/22 Inactive Administered Medications - up to 3 most recent administrations Administered Medications (un recognized section and content) Medication Order MAR Action Action Date Dose Rate Site cyanocobalamin 1,000 mcg injection 1,000 mcg, INTRAMUSCULAR, ONCE, 1 dose, On Wed07/13/23 at 1200 Given 07/13/2023 12:00 PM EST 1,000 mcg Deltoid, Right Inactive Administered Medications - up to 3 most recent administrations Medication Order MAR Action Action Date Dose Rate Site cyanocobalamin 1,000 mcg injection 1,000 mcg, INTRAMUSCULAR, ONCE, 1 dose, On Wed08/05/23 at 1130 Given 08/05/2023 11:30 AM EDT 1,000 mcg Deltoid, Right Inactive Administered Medications - up to 3 most recent administrations Medication Order MAR Action Action Date Dose Rate Site cyanocobalamin 1,000 mcg injection 1,000 mcg, INTRAMUSCULAR, ONCE, 1 dose, On Wed08/31/23 at 1030 Given 08/31/2023 10:30 AM EDT 1,000 mcg Deltoid, Right FOR RECORDS PERTAINING [...] BE BASED ON THE PRIMARY CLINICAL RECORDS. [facility]. provides no warranty or guarantee of the accuracy or completeness of information in this document.
[2023-10-04 09:20] LABS: C. Difficile PCR POSITIVE (NEGATIVE)
== END 2023-10-03 09:11 | disposition home or self-care (01) ==
LOC: LAB 09:10
PROVIDERS: PCP Nurse Practitioner Family; Visit Provider Nurse Practitioner Family
DX: R19.7 Diarrhea, unspecified (principal)
CPT/HCPCS: 87045; 87046; 87427; 87493

== ENCOUNTER 2023-11-15 21:17 | Outpatient (REF) | payer OTHER, SELFPAY ==
--- OUTSIDE RECORDS SUMMARY | 2023-11-15 21:24 | XMS_ITS | CCD ---
Author Organization [facility] Care Team Providers Care Community Youth Secretary Name Role Phone VICTOR MANUEL GUZMAN Referring Unavailable Bettina Jiménez Admitting Unavailable Bettina Jiménez Attending Unavailable Lui Salomon Primary Care Unavailable Unavailable Primary Care Provider UnavailJAREN Stuart Referring Unavailable Fernie LACE BURN OUT TENDER.TRUE, Gay Primary Care Provider [phone] Mirela Kelsey Unavailable Fernie LACE BURN OUT TENDER.Gay BISWAS Primary Care Provider Madelaine Ferris MD Unavailable Madelaine Ferris MD Primary Care Provider [phone] Madelaine Ferris MD Unavailable Madelaine Ferris MD Primary Care Provider Madelaine Ferris MD Unavailable Madelaine Ferris MD Primary Care Provider [phone] MADELAINE LEYVA Primary Care Unavailable MISC, DR SMITH Consulting Unavailable MISC, DR SMITH Attending Unavailable MISC, DR SMITH Admitting Unavailable MADELAINE GOMEZ Consulting Unavailable HAY ., DR GALLEGOS Consulting Unavailable HAY ., DR GALLEGOS Attending Unavailable HOY ., DR BURKETT Primary Care Unavailable HAY .DR GALLEGOS Admitting Unavailable KRISTINA GARRETT Consulting Unavailable JOSY ., DR BURKETT Primary Care Unavailable JOSY ., DR BURKETT Consulting Unavailable JOSY ., DR BURKETT Attending Unavailable HOGal ., DR BURKETT Admitting Unavailable GAY ENCISO Attending Unavailable GAY ENCISO Admitting Unavailable JOSY ., DR BURKETT Primary Care Unavailable HOY [...] Attending Unavailable PARMJIT ., MICKY Admitting Unavailable CENTRALIA, DR AURORA Pacheco Consulting Unavailable HOY ., DR BURKETT Primary Care Unavailable PARMJIT ., MICKY Consulting Unavailable HOY ., DR BURKETT Primary Care Unavailable PARMJIT ., MICKY Consulting Unavailable PARMJIT ., MICKY Attending Unavailable PARMJIT ., MICYK Admitting Unavailable HOY ., DR BURKETT Primary Care Unavailable HOY ., DR BURKETT Consulting Unavailable HOY ., DR BURKETT Attending Unavailable HOY ., DR BURKETT Admitting Unavailable AMRISSA, DR SAYDA Nelson Consulting Unavailable Charles Mitchell DO Primary Care Provider Mitali LACE BURN OUT TENDER-RICE FARMERMichelle Unavailable [phone] Unavailable Primary Care Provider UnavailAurora Carney MD Unavailable Fernie LACE BURN OUT TENDER-RICE FARMER, Gay S Primary Care Provider MICHELLE BRITTON Attending Unavailable CHARLES MITCHELL Primary Care Unavailable MICHELLE BRITTON Referring Unavailable LOIS HOLM Attending Unavailable GAY ENCISO S Primary Care Unavailable Madelaine Ferris MD Primary Care Provider HOY, MADELAINE M Primary Care Unavailable HOY, [...] Unavailable HOY, MADELAINE M Primary Care Unavailable ABHYANKAR, JOSE Attending Unavailable HOY, MADELAINE M Primary Care Unavailable HOY, MADELAINE M Primary Care Unavailable LYNNE NI Referring Unavailable LYNNE NI Attending Unavailable HOY, MADELAINE [...] Unavailable HOY, MADELAINE M Primary Care Unavailable HYKAREN, JOSE Attending Unavailable HOY, MADELAINE M Primary Care Unavailable HOY, MADELAINE M Primary Care Unavailable CHRISTIE PHAN Referring Unavailable CHRISTIE PHAN Attending Unavailable HOY, MADELAINE M Primary Care Unavailable SHARRON ROGERS Attending Unavailab JUAN LUIS Mejía Attending Unavailable BERNABE ENGLISH Attending Unavailable GORDO BARFIELD Attending Unavailable GAY ENCISO Referring Unavailable JUAN LUIS RICHARDSON Attending Unavailable SHARRON ROGERS Attending Unavailab le GRAZIANSHARRON Dorantes Attending Unavailab KATY Yates Attending Unavailable SHARRON ROGERS Referring Unavailab le GRAZIANGodwin, SHARRON Batista Referring Unavailab le Allergies Allergy Classification Reported Allergen(s) Allergy Type Date of Onset Reaction(s) Facility Sulfamethoxazole / Trimethoprim (1 source) Sulfamethoxazole / Trimethoprim Drug Allergy [facility] (20 sources) Codeine; Translations: [CODEINE] Drug Allergy Other: See Comments [facility] (20 sources) Latex; Translations: [LATEX] Drug Allergy Rash [facility] (20 sources) Sulfamethoxazole; Translations: [SULFAMETHOXAZOLE] Drug Allergy GI Upset, Other: See Comments [facility] (20 sources) Clindamycin; Translations: [CLINDAMYCIN] Drug Allergy Unknown [facility] (4 sources) Sulfamethoxazole / Trimethoprim Drug Allergy lymph swelling [facility] Other (20 sources) Doxycycline; Translations: [DOXYCYCLINE] Drug Allergy Other: See Comments, Other, Unknown [facility] (20 sources) Sulfamethoxazole / Trimethoprim; Translations: [SULFAMETHOXAZOLE-T RIMETHOPRIM] Drug Allergy Swelling, Other [facility] (20 sources) Trimethoprim; Translations: [TRIMETHOPRIM] Drug Allergy Other: See Comments [facility] (1 source) Latex Drug allergy (disorder) [facility] (1 source) Sulfamethoxazole / Trimethoprim Drug Allergy [facility] (3 sources) Sulfamethoxazole Allergy to substance [facility] (2 sources) Latex Propensity to adverse reactions Rash [facility] Medications Current Medications Medication Drug [...] kristal th. ALPRAZolam 0.25 mg oral tablet (4 sources) Benzodiazepine Start: take 0.25 mg by mouth once daily Alprazolam Active 0.25 MG PO Daily October 20, 2023 12:00am Start: 06-24-2023 take 1 tablet by kristal th once daily as needed ALPRAZolam (Xanax) 0.25 [...] oral tablet (20 sources) Purine Antimetabolite Start: 10-20-2023 take 50 mg by mouth twice daily Azathioprine Active 50 MG PO Twice daily October 20, 2023 12:00am Start: 08-18-2023 End: 11-11-2023 take 3 tablets by mouth once daily at mealtime azaTHIOprine (IMURAN) 50 mg tablet Indications: Other systemic lupus erythematosus with other organ involvement (HCC) , 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 TAKE 3 TABLETS BY MOUTH DAILY WITH FOOD. HOLD IF ON ANTIBIOTICS OR ILL. 270 tablet 1 11/11/2023 Active Start: 02-16-2023 take 3 tablets by mo uth three times daily azaTHIOprine (Imuran) 50 mg tablet Take 3 tablets (150 mg) by mouth 3 times a day. 0 02/16/2023 Active Start: 11-24-2022 End: 02-16-2023 take 3 tablets by mouth once daily at mealtime azaTHIOprine (IMURAN) 50 mg tablet Indications: Other systemic lupus erythematosus with other organ involvement (HCC) , 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 group home 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 TAKE 3 TABLETS BY MOUTH DAILY WITH FOOD. HOLD IF ON ANTIBIOTICS OR ILL. 90 tablet 3 02/16/2023 Active Start: 08-19-2022 End: 11-24-2022 take 2 tablets by mouth once daily at mealtime azaTHIOprine (IMURAN) 50 mg tablet Indications: Other systemic lupus erythematosus with other organ involvement (HCC) , 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 group home 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 Take 2tab daily [...] sources) B Lymphocyte Stimulator-specific Inhibitor Start: 023 End: 024 inject 200 mg by subcutaneous injection every week Belimumab (Benlysta) 200 mg/mL auto-injector Active 200 MG SUBCUT every week October 20, 2023 12:00am Comment on above: Inject 200mg (1 pen) [...] Apply topically once daily. 0 05/26/2023 Active Clobetasol (7 sources) Corticosteroid Start: 10-20-2023 Clobetasol Act kaycee TOPICAL October 20, 2023 12:00am Start: 10-23-2022 clobetasoL 0.0 5 % shampoo Apply topically. 1 application to the scalp in the shower topically 3-4 times a week 0 10/23/2022 Active CPAP/BIPAP/OTHER (20 sources) Start: 05-05-2022 End: 09-19-2049 CPAP/BIPAP/OTHER Indications : JOSE RAFAEL (obstructive sleep apnea) Type .CPAPSettings into a note to see current settings/supplies/DME information. 1 Each 0 05/05/2022 09/19/2049 Active [...] D2 Compound Start: 2023 End: 2023 take 69928 [IU] by mouth every week Ergocalciferol (Vitamin D2) Active 20563 UNIT PO every week October 20, 2023 12:00am Start: 10-31-2022 End: 01-24-2023 take 1 capsule by mouth every week ergocalciferol (Vitamin D-2) 1.25 MG (98251 UT) capsule Take 1 capsule (50,000 Units) [...] 0 03/06/2021 Active take 1 capsule by [facility] every week ergocalciferol (Vitamin D2) 1.25 MG (80202 UT) capsule Take 50,000 Units by mouth [...] mouth o nce a week with food. fidaxomicin 200 mg oral tablet (4 sources) Macrolide Antibacterial Start: take 1 tablet by mouth every other day Fidaxomicin (Dificid) 200 mg tablet Active 200 MG PO .every other day October 20, 2023 12:00am Start: 10-20-2023 take 1 tablet by [facility] every twelve hours Fidaxomicin (Dificid) 200 mg tablet Active 200 MG PO Every 12 hours 20 October 20, 2023 12:00am fludrocortisone acetate 0.1 mg oral tablet (3 sources) Start: 06-01-2023 End: 05-31-2024 take 1 tablet by mouth at bedtime fludrocortisone (Florinef) 0.1 MG tablet Indications: Autonomic dysfunction Take 1 tablet (0.1 mg) by mouth at bedtime 30 tablet 11 06/01/2023 05/31/2024 Active fluocinonide 0.5 mg/ml topical solution (7 sources) Corticosteroid Start: 10-20-2023 Fluocinonide Active 1 APPLIC TOPICAL Daily October 20, 2023 12:00am Start: 10-20-2022 fluocinonide ( Lidex) 0.05 % external solution Apply topically once daily. apply to affected area on scalp topically qd-bid prn for 30 day(s) 0 10/20/2022 Active folic acid 1 mg oral tablet (20 sources) Start: 03-18-2022 End: 03-13-2023 take 1 tablet by mouth once daily folic acid 1 mg tablet TAKE 1 TABLET BY MOUTH EVERY DAY 90 tablet 3 01/15/2023 Active Comment on above: Take 1 tablet by kristal th once daily. TAKE 1 TABLET BY KRISTAL TH EVERY DAY hydroxychloroquine sulfate 200 mg oral tablet (20 sources) Antimalarial, Antirheumatic Agent Start: 10-20-2023 take 400 mg by mouth once daily Hydroxychloroquine Active 400 MG PO Daily October 20, 2023 12:00am Start: 10-19-2023 hydrOXYchloroQ UINE (PLAQUENIL) 200 mg tablet Indications: CHRISTIAN positive , Other systemic lupus erythematosus with other organ involvement (HCC) TAKE 1 TAB TWICE A DAY WITH FOOD *SUNSCREEN WHILE OUTDOORS/OPHTHAMOLOGY EVERY 6-12 MONTHS WHILE ON* 60 tablet 11 10/19/2023 Active Start: 10-30-2022 hydrOXYchloroQ UINE (PLAQUENIL) 200 mg tablet Indications: CHRISTIAN positive [...] mg oral tablet (2 sources) Start: 06-27-19 take 1 tablet by mouth every six [...] oral tablet (20 sources) beta-Adrenergic Judie Start: 10-20-2023 take 50 mg by mouth once daily Metoprolol Tartrate Active 50 MG PO Daily October 20, 2023 12:00am Start: 04-23-2023 take [address] [facility] twice daily metoprolol tartrate (Lopressor) 50 mg tablet Take 2 tablets by mouth twice a day. 0 04/23/2023 Active Start: 05-25-2022 take 1 tablet by kristal th twice daily metoprolol tartrate, short acting, (LOPRESSOR) [...] Start: 01-19-2022 take 1 capsule by mo uth once daily naltrexone capsule 1 mg TAKE ONE CAPSULE BY MOUTH DAILY 0 01/19/2022 Active Comment on above: TAKE ONE CAPSULE BY MOUTH DAILY nitroglycerin 0.4 mg sublingual tablet (20 sources) Nitrate Vasodilator Start: End: nitroglycerin sublingual (NITROQUICK) 0.4 mg SL tablet Dissolve 0.4 mg under the tongue. 0 10/07/2020 07/25/2022 Discontinued Comment on above: Dissolve 0.4 mg unde r the tongue. nystatin [id number] unt/ml topical cream (3 sources) Polyene Antifungal [...] tablet by mouth once daily at mealtime predniSONE (DELTASONE) 10 mg tablet Indications: Other systemic lupus erythematosus with other organ involvement (HCC) Take 10mg daily with food (no oral nsaids) 90 tablet 1 10/05/2023 Active Start: 05-12-2023 End: 10-05-2023 predniSONE (DELTASONE) 10 mg tablet Indications: Other systemic lupus erythematosus with other organ involvement (HCC) Take 40mg daily x 5days, then decrease 5mg every 5days until 10mg daily thereafter 120 tablet 1 05/12/2023 10/05/2023 Discontinued Start: 05-12-2023 take 1 tablet by kristal [...] every 5days until 10mg daily thereafter pregabalin 225 mg oral capsule (20 sources) Start: 10-20-2023 take 225 mg by mouth once daily Pregabalin Active 225 MG PO Daily October 20, 2023 12:00am Start: 07-06-2023 take 1 capsule by [facility] three times daily pregabalin (Lyrica) 100 MG [...] Comment on above: TAKE 1 CAPSULE BY [facility] 3 TIMES A DAY FOR 30 DAYS TAKE 1 CAPSULE BY [facility] 3 TIMES A DAY take 1 capsule by [facility] three times a day 1000 ml [...] Discontinued (Other) topiramate 25 mg oral tablet (20 sources) Start: End: take 1 tablet by mouth twice daily topiramate (TOPAMAX) 25 mg tablet Indications: Other chronic pain Take 1 tablet by mouth two times a day. 180 tablet 0 05/26/2023 Active Comment on above: Take 1 tablet by [facility] two times a day. triamcinolone acetonide 0.25 mg/ml topical lotion (5 sources) Corticosteroid Start: triamcinolone acetonide 0.025 % lotion 1 Application. [...] Active Comment on above: Take by mouth. dicyclomine hydrochloride 10 mg oral capsule (2 sources) Anticholinergic Start: 2023 End: 2023 take 1 capsule by mouth twice daily as needed Dicyclomine Discontinued 10 MG PO Twice daily 60 September 22, 2023 12:00am October 20, 2023 1:07pm Take 1 capsule orally twice a day prn 0.5 ml dulaglutide 3 mg/ml auto-injector (20 sources) GLP-1 Receptor Agonist Start: 2022 End: 2022 inject 1.5 mg by subcutaneous injection every [...] Serotonin and Norepinephrine Reuptake Inhibitor Start: 10-30-19 23 End: 04-26-20 23 take 1 capsule by [...] Comment on above: Take 1 capsule by [facility] once daily. famotidine 20 mg oral [...] 1 capsule by mo ut twice daily. pantoprazole 40 mg delayed release oral tablet (2 sources) Proton Pump Inhibitor Start: 4 End: 4 take 1 tablet by mouth once daily Pantoprazole Discontinued 40 MG PO Daily September 22, 2023 12:00am October 20, 2023 1:07pm Take 1 tablet orally once a day. pravastatin sodium 20 mg oral tablet (4 sources) HMG-CoA Reductase Inhibitor Start: 4 End: 4 take 20 mg by mouth once daily Pravastatin Discontinued 20 MG PO Daily October 20, 2023 12:00am October 20, 2023 1:08pm Start: 06-24-2023 take 1 tablet by kristal th once daily pravastatin (Pravachol) 20 MG tablet TAKE 1 TABLET BY MOUTH EVERY DAY FOR 30 DAYS 0 06/24/2023 Active VIT/IRON FUMARATE/FA ( VITAMIN ORAL) (2 sources) [...] Comment on above: Take 1 tablet by krsital th once daily. simvastatin 20 mg oral tablet (20 sources) HMG-CoA Reductase Inhibitor Start: 03-10-2022 End: 04-26-2023 simvastatin (ZOCOR) 20 mg tablet vitamin b12 1 mg/ml injectable solution (2 sources) Vitamin B12 Start: 10-27-2023 End: 10-27-2023 cyanocobalamin 1,000 mcg injection Start: 09-30-2023 End: 09-30-2023 cyanocobalamin 1,000 mcg inj ection Problems Active Problems Problem Classification Problem Date Documented Da te Episodic/Chronic Abdominal pain (4 sources) Finding of sensation of abdomen; Translations: [Unspecified abdominal pain] 09-22-2023 Episodic Anxiety disorders (4 sources) Anxiety; Translations: [Anxiety disorder, unspecified] Onset: 4 06-09-2023 Chronic Cardiac dysrhythmias (10 sources) Postural orthostatic tachycardia syndrome ; Translations: [POTS (postural orthostatic tachycardia syndrome)] Onset: 4 Chronic Cardiac dysrhythmias (9 sources) Tachycardia, unspecified; Translations: [Tachycardia] Onset: 2 Resolved: 2 Episodic Conditions associated with dizziness or vertigo (3 sources) Dizziness; Translations: [Dizziness and giddiness] Onset: 4 06-01-2023 Episodic Deficiency and other anemia (3 sources) Anemia of chronic disease; Translations: [Anemia in other chronic diseases classified elsewhere] Chronic Diabetes mellitus without complication (8 sources) Increased glucose level; Translations: [Other abnormal glucose] Onset: 2 Episodic Diseases of mouth; excluding dental (2 sources) Oral lesion; Translations: [Unspecified lesions of oral mucosa] Onset: 4 07-06-2023 Episodic Disorders of lipid metabolism (20 sources) Hyperlipidemia; Translations: [Hyperlipidemia, unspecified] Onset: 5 05-31-2014 Chronic Esophageal disorders (6 sources) Laryngopharyngeal reflux; Translations: [Gastro-esophageal reflux disease without esophagitis] Onset: 4 07-06-2023 Chronic Essential hypertension (10 sources) Essential hypertension; Translations: [Essential (primary) hypertension] Onset: 4 06-09-2023 Chronic Fever of unknown origin (1 source) Pyrexia of unknown origin; Translations: [Fever, unspecified] 04-26-2023 Episodic Headache; including migraine (3 sources) Headache; Translations: [Nonintractable episodic headache] Onset: 4 06-01-2023 Episodic Intestinal infection (6 sources) Clostridium difficile diarrhea; Translations: [Enterocolitis due to Clostridium difficile, not specified as recurrent] 09-22-2023 Episodic Malaise and fatigue (20 sources) Malaise and fatigue; Translations: [Chronic fatigue, unspecified] Onset: 4 Chronic Menstrual disorders (20 sources) Excessive and frequent menstruation with irregular cycle; Translations: [Menometrorrhagia] Onset: 3 Chronic Mood disorders (20 sources) Recurrent depression; Translations: [Major depressive disorder, recurrent, unspecified] Onset: 4 06-18-2014 Chronic Nutritional deficiencies (20 sources) Vitamin D deficiency; Translations: [Vitamin D deficiency, unspecified] Onset: 1 Chronic Osteoarthritis (20 sources) Degenerative joint disease involving multiple joints; 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] Onset: 1 Chronic Osteoporosis (20 sources) 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; Translations: [Other osteoporosis without current pathological fracture] Onset: 3 02-04-2023 Chronic Other aftercare (3 sources) Drug therapy status; Translations: [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 group home 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] Episodic Other aftercare (1 source) Polypharmacy ; Translations: [Other group home (current) drug therapy] Episodic Other aftercare (1 source) Long-term 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 drug therapy; Translations: [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] 11-11-2023 Episodic Other circulatory disease (20 sources) Raynaud's disease; Translations: [Raynaud's syndrome without gangrene] Onset: 3 02-04-2023 Chronic Other connective tissue disease (1 source) Pain in left foot; Translations: [Pain in left foot] Onset: 9 Episodic Other connective tissue disease (1 source) Pain in right foot; Translations: [Pain in right foot] Onset: 9 Episodic Other connective tissue disease (20 sources) Paraparesis; Translations: [Other symptoms and signs involving the musculoskeletal system] Onset: 1 03-05-2021 Episodic Other connective tissue disease (2 sources) Enthesopathy of hip region; Translations: [Other specified enthesopathies of unspecified lower limb, excluding foot] Onset: 4 07-06-2023 Episodic Other connective tissue disease (2 sources) Muscle pain; Translations: [Myalgia, unspecified site] Onset: 4 07-06-2023 Episodic Other connective tissue disease (1 source) Pain of bilateral hands; Translations: [Pain in right hand] 10-05-2023 Episodic Other gastrointestinal disorders (2 sources) Diarrhea; Translations: [Diarrhea, unspecified] 09-22-2023 Episodic Other gastrointestinal disorders (2 sources) Diarrhea, unspecified; Translations: [Diarrhea] 09-22-2023 Episodic Other inflammatory condition of skin (20 sources) Discoid lupus erythematosus; 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] Onset: 2 03-12-2022 Chronic Other inflammatory condition of skin (3 sources) Discoid lupus erythematosus; Translations: [DISCOID LUPUS ERYTHEMATOSUS] Onset: 2 Chronic Other injuries and conditions due to external causes (1 source) Delayed healing of wound; Translations: [Other injury of unspecified body region, subsequent encounter] Episodic Other lower respiratory disease (2 sources) Snoring; Translations: [Snoring] Episodic Other lower respiratory disease (3 sources) Dyspnea; Translations: [Shortness of breath] Onset: 4 07-13-2023 Episodic Other lower respiratory disease (1 source) Shortness of breath; Translations: [Shortness of breath] Onset: 4 Episodic Other nervous system disorders (20 sources) Chronic pain syndrome; Translations: [Chronic pain syndrome] 06-18-2014 Chronic Other nervous system disorders (2 sources) Chronic pain; Translations: [Other chronic pain] 04-26-2023 Chronic Other nervous system disorders (8 sources) Disorder of autonomic nervous system; Translations: [Disorder of the autonomic nervous system, unspecified] Onset: 4 06-09-2023 Chronic Other nervous system disorders (2 sources) Disorder of the autonomic nervous system, unspecified; Translations: [Disorder of the autonomic nervous system, unspecified] Onset: 4 Chronic Other nervous system disorders (1 source) Other chronic pain; Translations: [Other chronic pain] Onset: 4 Chronic Other nervous system disorders (2 sources) Skin sensation disturbance; Translations: [Unspecified disturbances of skin sensation] Onset: 4 07-06-2023 Episodic Other non-traumatic joint disorders (20 sources) Hip pain; Translations: [Pain in unspecified hip] Onset: 4 06-18-2014 Episodic Other nutritional; endocrine; and metabolic disorders (20 sources) Obesity; Translations: [Obesity, unspecified] 02-25-2015 Chronic Other nutritional; endocrine; and metabolic disorders (20 sources) Body mass index 40+ - severely obese; Translations: [Morbid (severe) obesity due to excess calories] Onset: 3 Chronic Other nutritional; endocrine; and metabolic disorders (3 sources) Insulin resistance; Translations: [Insulin resistance, unspecified] 03-10-2023 Chronic Other nutritional; endocrine; and metabolic disorders (1 source) Morbid obesity; Translations: [Morbid (severe) obesity due to excess calories] 07-13-2023 Chronic Other nutritional; endocrine; and metabolic disorders (1 source) Morbid (severe) obesity due to excess calories; Translations: [Obesity, Class III, BMI 40-49.9 (morbid obesity) (HCC)] Onset: 3 Chronic Other nutritional; endocrine; and metabolic disorders (6 sources) History of nutritional deficiency; Translations: [Personal history of other endocrine, nutritional and metabolic disease] Onset: 4 10-05-2023 Episodic Other screening for suspected conditions (not mental disorders or infectious disease) (19 sources) Elevated C-reactive protein; Translations: [Elevated C-reactive protein (CRP)] Onset: 2 Episodic Other upper respiratory disease (2 sources) Chronic pharyngolaryngitis; Translations: [Chronic laryngitis] Onset: 4 07-06-2023 Chronic Ovarian cyst (1 source) Unspecified ovarian cyst, left side; Translations: [UNSPECIFIED OVARIAN CYST LEFT SIDE] Onset: 3 Episodic Residual codes; unclassified (20 sources) Obstructive sleep apnea syndrome; Translations: [Obstructive sleep apnea (adult) (pediatric)] Onset: 2 Chronic Residual codes; unclassified (2 sources) Obstructive sleep apnea (adult) (pediatric); Translations: [Obstructive sleep apnea (adult) (pediatric)] Onset: 4 Chronic Residual codes; unclassified (1 source) Family history of hereditary disease; Translations: [Family history of other specified conditions] Episodic Residual codes; unclassified (1 source) Family history of malignant neoplasm of breast; Translations: [FAMILY HX MALIG NEOPLASM OF BREAST] Onset: 3 Episodic Residual codes; unclassified (1 source) Family history of malignant neoplasm of digestive organs; Translations: [FAM HX MALIG NEOPLASM DIGESTIV ORGN] Onset: 3 Episodic Residual codes; unclassified (1 source) Bilateral lower limb edema; Translations: [Localized edema] 07-13-2023 Episodic Spondylosis; intervertebral disc disorders; other back problems (20 sources) Bilateral inflammation of sacroiliac joint; Translations: [Sacroiliitis, not elsewhere classified] Onset: 6 09-13-2015 Chronic Substance-related disorders (20 sources) Tobacco user; Translations: [Nicotine dependence, unspecified, uncomplicated] Onset: 4 06-18-2014 Chronic Systemic lupus erythematosus and connective tissue disorders (20 sources) Systemic lupus erythematosus; Translations: [Other organ or system involvement in systemic lupus erythematosus] Onset: 2 Chronic Unclassified (1 source) R07.81 - Pleurodynia; Translations: [R07.81 - Pleurodynia] Onset: 9 Unclassified (1 source) Supraventricular tachycardia, unspecified; Translations: [Supraventricular tachycardia, unspecified] Onset: 4 Unclassified (1 source) Established Patient Follow-Up Onset: 3 Viral infection (10 sources) Cytomegaloviral disease, unspecified; 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] Onset: 2 Resolved: 2 Episodic Past or Other Problems Problem Classification [...] (20 sources) Drug therapy finding; Translations: [Other group home (current) drug therapy] Onset: 03-05-2021 Episodic Other aftercare (20 sources) H/O: high risk medication; Translations: [Other terminal operator (current) drug therapy] Onset: 06-15-2022 06-15-2022 Episodic Other aftercare (1 source) Other terminal operator (current) drug therapy; Translations: [OTH HALF-WAY 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 THERAPY] Onset: 03-23-2022 Episodic Other aftercare (20 sources) Long-term 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 systemic steroid; Translations: [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 (current) use of 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] Onset: 02-04-2023 02-04-2023 Episodic Other connective tissue disease (20 sources) Pain in toe; Translations: [Pain in right toe(s)] Onset: 03-05-2021 Episodic Other connective tissue disease (20 sources) Fibromyalgia; Translations: [Fibromyalgia] Onset: 10-24-2021 Episodic Other connective tissue disease (15 sources) Other symptoms and signs involving the musculoskeletal system; Translations: [Other musculoskeletal symptoms referable to limbs] Onset: 03-05-2021 03-05-2021 Episodic Other hematologic conditions (20 sources) ESR raised; Translations: [Elevated erythrocyte sedimentation rate] Onset: 03-05-2021 Episodic Other hematologic conditions (8 sources) [...] Chronic Other nutritional; endocrine; and metabolic disorders (7 sources) Body mass index 30+ - obesity; [...] Name Value Interpretation Reference Range Facility CNNURSEon 10-27-2023 CNNURSE Normal [facility] CNNURSEon 09-30-2023 CNNURSE Normal [facility] CNPNon 09-04-2023 CNPN Normal [facility] 25(OH)D3 SerPl-mCncon 2023 25-hydroxyvitamin D3 [Mass/Vol] 32.2 ng/mL Normal 31.0-80.0 [facility] Comment on above: Order Comment: Speci men Type: BLOOD SPECIMENOrdering Facility: [facility] Address: [address] [place] [address] Result Comment: Clas sification of 25 [place] Vitamin D status:Deficiency/Insufficiency: < or = 30 ng/ml.Sufficiency/Optimal Levels: 31-80 ng/mLToxicity: > 100 ng/mL.Test performed by chemiluminescent immunoassay. Performed By: #### 1 989-3 ####[facility]CLIA [id number] [place] [address] [place] CBC W Auto Differential pane l (Bld)on 08-31-2023 Basophils (Bld) [#/Vol] 0.07 10*3/uL Normal <0.11 [facility] Comment on above: Order Comment: Speci men Type: BLOOD SPECIMENOrdering Facility: [facility] Address: [address] [place] [address] Performed By: #### 5 7021-8 ####[facility] LABCLIA [id number] [place] [address] Basophils/100 WBC (Bld) 0.5 % Normal [facility] Comment on above: Order Comment: Speci men Type: BLOOD SPECIMENOrdering Facility: [facility] Address: [address] [place] [address] Performed By: #### 5 7021-8 ####[facility] LABCLIA [id number] [place] [address] Differential cell count method Nom (Bld) Auto Normal [facility] Comment on above: Order Comment: Speci men Type: BLOOD SPECIMENOrdering Facility: [facility] Address: [address] [place] [address] Performed By: #### 5 7021-8 ####[facility] LABCLIA [id number] [place] [address] Eosinophils (Bld) [#/Vol] 0.20 10*3/uL Normal <0.46 [facility] Comment on above: Order Comment: Speci men Type: BLOOD SPECIMENOrdering Facility: [facility] Address: [address] [place] [address] Performed By: #### 5 7021-8 ####[facility] LABCLIA [id number] [place] [address] Eosinophils/100 WBC (Bld) 1.5 % Normal [facility] Comment on above: Order Comment: Speci men Type: BLOOD SPECIMENOrdering Facility: [facility] Address: [address] [place] [address] Performed By: #### 5 7021-8 ####[facility]CLIA [id number] [place] [address] Erythrocyte distribution width (RBC) [Ratio] 14.6 % Normal 11.5-15.0 [facility] Comment on above: Order Comment: Speci men Type: BLOOD SPECIMENOrdering Facility: [facility] Address: [address] [place] [address] Performed By: #### 5 7021-8 ####[facility] LABIA [id number] [place] [address] Hematocrit (Bld) [Volume fraction] 41.5 % Normal 36.0-46.0 [facility] Comment on above: Order Comment: Speci men Type: BLOOD SPECIMENOrdering Facility: [facility] Address: [address] [place] [address] Performed By: #### 5 7021-8 ####[facility] LABCLIA [id number] [place] [address] Hemoglobin (Bld) [Mass/Vol] 13.3 g/dL Normal 11.5-15.5 [facility] Comment on above: Order Comment: Speci men Type: BLOOD SPECIMENOrdering Facility: [facility] Address: [address] [place] [address] Performed By: #### 5 7021-8 ####[facility]CLIA [id number] [place] [address] Immature granulocytes (Bld) [#/Vol] 0.14 10*3/uL High <0.10 [facility] Comment on above: Order Comment: Speci men Type: BLOOD SPECIMENOrdering Facility: [facility] Address: [address] [place] [address] Performed By: #### 5 7021-8 ####[facility]CLIA [id number] [place] [address] Immature granulocytes/100 WBC (Bld) 1.0 % Normal [facility] Comment on above: Order Comment: Speci men Type: BLOOD SPECIMENOrdering Facility: [facility] Address: [address] [place] [address] Performed By: #### 5 7021-8 ####[facility] LABCLIA [id number] [place] [address] Lymphocytes (Bld) [#/Vol] 2.58 10*3/uL Normal 1.00-4.00 [facility] Comment on above: Order Comment: Speci men Type: BLOOD SPECIMENOrdering Facility: [facility] Address: [address] [place] [address] Performed By: #### 5 7021-8 ####[facility]CLIA [id number] [place] [address] Lymphocytes/100 WBC (Bld) 19.2 % Normal [facility] Comment on above: Order Comment: Speci men Type: BLOOD SPECIMENOrdering Facility: [facility] Address: [address] [place] [address] Performed By: #### 5 7021-8 ####[facility] LABCLIA [id number] [place] [address] MCH (RBC) [Entitic mass] 30.0 pg Normal 26.0-34.0 [facility] Comment on above: Order Comment: Speci men Type: BLOOD SPECIMENOrdering Facility: [facility] Address: [address] [place] [address] Performed By: #### 5 7021-8 ####[facility] LABCLIA [id number] [place] [address] MCHC (RBC) [Mass/Vol] 32.0 g/dL Normal 30.5-36.0 [facility] Comment on above: Order Comment: Speci men Type: BLOOD SPECIMENOrdering Facility: [facility] Address: [address] [place] [address] Performed By: #### 5 7021-8 ####[facility] LABCLIA [id number] [place] [address] MCV (RBC) [Entitic vol] 93.7 fL Normal 80.0-100.0 [facility] Comment on above: Order Comment: Speci men Type: BLOOD SPECIMENOrdering Facility: [facility] Address: [address] [place] [address] Performed By: #### 5 7021-8 ####[facility] LABCLIA [id number] [place] [address] Monocytes (Bld) [#/Vol] 0.75 10*3/uL Normal <0.87 [facility] Comment on above: Order Comment: Speci men Type: BLOOD SPECIMENOrdering Facility: [facility] Address: [address] [place] [address] Performed By: #### 5 7021-8 ####[facility]CLIA [id number] [place] [address] Monocytes/100 WBC (Bld) 5.6 % Normal [facility] Comment on above: Order Comment: Speci men Type: BLOOD SPECIMENOrdering Facility: [facility] Address: [address] [place] [address] Performed By: #### 5 7021-8 ####[facility]CLIA [id number] [place] [address] Neutrophils (Bld) [#/Vol] 9.69 10*3/uL High 1.45-7.50 [facility] Comment on above: Order Comment: Speci men Type: BLOOD SPECIMENOrdering Facility: [facility] Address: [address] [place] [address] Performed By: #### 5 7021-8 ####[facility]CLIA [id number] [place] [address] Neutrophils/100 WBC (Bld) 72.2 % Normal [facility] Comment on above: Order Comment: Speci men Type: BLOOD SPECIMENOrdering Facility: [facility] Address: [address] [place] [address] Performed By: #### 5 7021-8 ####[facility] LABCLIA [id number] [place] [address] Nucleated RBC (Bld) [#/Vol] 10*3/uL Normal <0.01 [facility] Comment on above: Order Comment: Speci men Type: BLOOD SPECIMENOrdering Facility: [facility] Address: [address] [place] [address] Performed By: #### 5 7021-8 ####[facility] LABIA [id number] [place] [address] Nucleated RBC/100 WBC (Bld) [Ratio] 0.0 /100 WBC Normal [facility] Comment on above: Order Comment: Speci men Type: BLOOD SPECIMENOrdering Facility: [facility] Address: [address] [place] [address] Performed By: #### 5 7021-8 ####[facility] LABCLIA [id number] [place] [address] Platelet mean volume (Bld) [Entitic vol] 9.6 fL Normal 9.0-12.7 [facility] Comment on above: Order Comment: Speci men Type: BLOOD SPECIMENOrdering Facility: [facility] Address: [address] [place] [address] Performed By: #### 5 7021-8 ####[facility]CLIA [id number] [place] [address] Platelets (Bld) [#/Vol] 304 10*3/uL Normal 150-400 [facility] Comment on above: Order Comment: Speci men Type: BLOOD SPECIMENOrdering Facility: [facility] Address: [address] [place] [address] Performed By: #### 5 7021-8 ####[facility] LABCLIA [id number] [place] [address] RBC (Bld) [#/Vol] 4.43 10*6/uL Normal 3.90-5.20 [facility] Comment on above: Order Comment: Speci men Type: BLOOD SPECIMENOrdering Facility: [facility] Address: [address] [place] [address] Performed By: #### 5 7021-8 ####[facility]CLIA [id number] [place] [address] WBC (Bld) [#/Vol] 13.43 10*3/uL High 3.70-11.00 [facility] Comment on above: Order Comment: Speci men Type: BLOOD SPECIMENOrdering Facility: [facility] Address: [address] [place] [address] Performed By: #### 5 7021-8 ####[facility] LABCLIA [id number] [place] [address] CNNURSEon 08-31-2023 CNNURSE Normal [facility] CRP SerPl-mCncon 08-31-2023 CRP [Mass/Vol] 0.6 mg/dL Normal <0.9 [facility] Comment on above: Order Comment: Speci men Type: BLOOD SPECIMENOrdering Facility: [facility] Address: [address] [place] [address] Performed By: #### 1 988-5, 90485-9, 2276-4 ####[facility] LABCLIA [id number] [address] [facility] Comprehensive metabolic 2000 panelon 08-31-2023 Albumin [Mass/Vol] 4.0 g/dL Normal 3.9-4.9 [facility] Comment on above: Order Comment: Speci men Type: BLOOD SPECIMENOrdering Facility: [facility] Address: [address] [place] [address] Performed By: #### 2 4323-8 ####[facility] LABCLIA [id number] [place] [address] ALP [Catalytic activity/Vol] 69 U/L Normal 34-123 [facility] Comment on above: Order Comment: Speci men Type: BLOOD SPECIMENOrdering Facility: [facility] Address: [address] [place] [address] Performed By: #### 2 4323-8 ####[facility] LABCLIA [id number] [place] [address] ALT [Catalytic activity/Vol] 31 U/L Normal 7-38 [facility] Comment on above: Order Comment: Speci men Type: BLOOD SPECIMENOrdering Facility: [facility] Address: [address] [place] [address] Performed By: #### 2 4323-8 ####[facility] LABCLIA [id number] [place] [address] Anion gap [Moles/Vol] 11 mmol/L Normal 9-18 [facility] Comment on above: Order Comment: Speci men Type: BLOOD SPECIMENOrdering Facility: [facility] Address: [address] [place] [address] Performed By: #### 2 4323-8 ####[facility] LABCLIA [id number] [place] [address] AST [Catalytic activity/Vol] 18 U/L Normal 13-35 [facility] Comment on above: Order Comment: Speci men Type: BLOOD SPECIMENOrdering Facility: [facility] Address: [address] [place] [address] Performed By: #### 2 4323-8 ####[facility] LABCLIA [id number] [place] [address] Bilirubin [Mass/Vol] 0.3 mg/dL Normal 0.2-1.3 [facility] Comment on above: Order Comment: Speci men Type: BLOOD SPECIMENOrdering Facility: [facility] Address: [address] [place] [address] Performed By: #### 2 4323-8 ####[facility] LABCL[facility] [id number] [place] [address] Calcium [Mass/Vol] 10.0 mg/dL Normal 8.5-10.2 [facility] Comment on above: Order Comment: Speci men Type: BLOOD SPECIMENOrdering Facility: [facility] Address: [address] [place] [address] Performed By: #### 2 4323-8 ####[facility] LABCLIA [id number] [place] [address] Chloride [Moles/Vol] 105 mmol/L Normal 97-105 [facility] Comment on above: Order Comment: Speci men Type: BLOOD SPECIMENOrdering Facility: [facility] Address: [address] [place] [address] Performed By: #### 2 4323-8 ####[facility]CLIA [id number] [place] [address] CO2 [Moles/Vol] 25 mmol/L Normal 22-30 [facility] Comment on above: Order Comment: Speci men Type: BLOOD SPECIMENOrdering Facility: [facility] Address: [address] [place] [address] Performed By: #### 2 4323-8 ####[facility] LABCLIA [id number] [place] [address] Creatinine [Mass/Vol] 0.80 mg/dL Normal 0.58-0.96 [facility] Comment on above: Order Comment: Speci men Type: BLOOD SPECIMENOrdering Facility: [facility] Address: [address] [place] [address] Performed By: #### 2 4323-8 ####[facility] LABIA [id number] [place] [address] Creatinine and Glomerular filtration rate.predicted panel (S/P/Bld) 94 mL/min/1.73m??? Normal >=60 [facility] Comment on above: Order Comment: Speci men Type: BLOOD SPECIMENOrdering Facility: [facility] Address: [address] [place] [address] Result Comment: Erin mated Glomerular Filtration Rate [...] GFR. Performed By: #### 2 4323-8 ####[facility] LABCLIA [id number] [place] [address] Glucose [Mass/Vol] 160 mg/dL High 74-99 [facility] Comment on above: Order Comment: Speci men Type: BLOOD SPECIMENOrdering Facility: [facility] Address: [address] [place] [address] Result Comment: The [place] [employer] (ADA) provides guidance for cutoff [...] Standards of Medical Care in Diabetes 2016, [place] [employer]. Diabetes Care. 2016.39(Suppl 1). Performed By: #### 2 4323-8 ####[facility] LABCLIA [id number] [place] [address] Potassium [Moles/Vol] 4.2 mmol/L Normal 3.7-5.1 [facility] Comment on above: Order Comment: Speci men Type: BLOOD SPECIMENOrdering Facility: [facility] Address: [address] [place] [address] Performed By: #### 2 4323-8 ####[facility] LABCLIA [id number] [place] [address] Protein [Mass/Vol] 6.9 g/dL Normal 6.3-8.0 [facility] Comment on above: Order Comment: Speci men Type: BLOOD SPECIMENOrdering Facility: [facility] Address: [address] [place] [place] [id number] Performed By: #### 2 4323-8 ####[facility] LABCLIA [id number] [place] [address] Sodium [Moles/Vol] 141 mmol/L Normal 136-144 [facility] Comment on above: Order Comment: Speci men Type: BLOOD SPECIMENOrdering Facility: [facility] Address: [address] [id number] Performed By: #### 2 4323-8 ####[facility]CLIA [id number] [place] [address] Urea nitrogen [Mass/Vol] 13 mg/dL Normal 7-21 [facility] Comment on above: Order Comment: Speci men Type: BLOOD SPECIMENOrdering Facility: [facility] Address: [address] [place] [address] Performed By: #### 2 4323-8 ####[facility] LABCLIA [id number] [place] [address] ESR Westergren method (Bld) [Velocity]on 08-31-2023 ESR (Bld) [Velocity] 37 mm/h High 0-20 [facility] Comment on above: Order Comment: Speci men Type: BLOOD SPECIMENOrdering Facility: [facility] Address: [address] [place] [address] Performed By: #### 4 537-7 ####[facility] [id number] [place] [address] [place] Ferritin SerPl-mCncon 2023 Ferritin [Mass/Vol] 60.3 ng/mL Normal 14.7-205.1 [facility] Comment on above: Order Comment: Speci men Type: BLOOD SPECIMENOrdering Facility: [facility] Address: [address] [place] [address] Performed By: #### 1 988-5, 22043-8, 2276-4 ####[facility] [id number] [place] [address] [place] Folate SerPl-mCncon 08-31-19 24 Folate [Mass/Vol] ng/mL Normal >4.7 [facility] Comment on above: Order Comment: Speci men Type: BLOOD SPECIMENOrdering Facility: [facility] Address: [address] [place] [address] Result Comment: A re sult of > 20 ng/mL is not necessarily indicative of a pathologic or treatable condition: it reflects a limitation of the test methodology.Assay reference range: 4.8 to 24.2 ng/mL. Suitable for detection of folate deficiency.Reference:Folate III (Folate III) [package insert V 1.0 [place]]. [facility], [place], [place]: March 2015. Performed By: #### 2 132-9, 2284-8 ####[facility]CLIA [id number] [place] [address] [place] Iron and Iron binding capaci ty panelon 08-31-2023 Iron [Mass/Vol] 87 ug/dL Normal 41-186 [facility] Comment on above: Order Comment: Speci men Type: BLOOD SPECIMENOrdering Facility: [facility] Address: [address] [place] [address] Performed By: #### 1 988-5, 34386-6, 6-4 ####[facility] LABIA [id number] [place] [address] [place] Iron binding capacity [Mass/Vol] 356 ug/dL Normal 232-386 [facility] Comment on above: Order Comment: Speci men Type: BLOOD SPECIMENOrdering Facility: [facility] Address: [address] [place] [address] Performed By: #### 1 988-5, 33547-8, 2275-4 ####[facility] [id number] [address] [place] Iron/TIBC [Molar ratio] 24.4 % Normal 15.0-57.0 [facility] Comment on above: Order Comment: Speci men Type: BLOOD SPECIMENOrdering Facility: [facility] Address: [address] [place] [address] Performed By: #### 1 988-5, 24600-5, 2275-4 ####[facility] LABIA [id number] [place] [id number] [place] Vit B12 [facility] Cobalamin (Vitamin B12) [Mass/Vol] 820 pg/mL Normal 232-1245 [facility] Comment on above: Order Comment: Speci men Type: BLOOD SPECIMENOrdering Facility: [facility] Address: [address] [place] [address] Performed By: #### 2 132-9, 2284-8 ####[facility]CLIA [id number] [place] [address] [place] CNNURSEon 08-05-2023 CNNURSE Normal [facility] CNNURSEon 07-13-2023 CNNURSE Normal [facility] ECG 12 Leadon 07-13-2023 ECG revealed normal sinus rhythm [place] Work Phone: CNPNon 06-12-2023 CNPN Normal [facility] 25(OH)D3 SerPl-mCncon 2023 25-hydroxyvitamin D3 [Mass/Vol] 17.3 ng/mL Low 31.0-80.0 [facility] Comment on above: Order Comment: Speci men Type: BLOOD SPECIMENOrdering Facility: [facility] Address: [address] [place] [address] Result Comment: Clas sification of 25 [place] Vitamin D status:Deficiency/Insufficiency: < or = 30 ng/ml.Sufficiency/Optimal Levels: 31-80 ng/mLToxicity: > 100 ng/mL.Test performed by chemiluminescent immunoassay. Performed By: #### 1 989-3 ####[facility]CLIA [id number] [address] [place] CBC panel Auto (Bld)on 06-10 Erythrocyte distribution width (RBC) [Ratio] 14.5 % Normal 11.5-15.0 [facility] Comment on above: Order Comment: Speci men Type: BLOOD SPECIMENOrdering Facility: [facility] Address: [address] [place] [address] Performed By: #### 5 8410-2 ####[facility] LABCLIA [id number] [place] [address] Hematocrit (Bld) [Volume fraction] 43.1 % Normal 36.0-46.0 [facility] Comment on above: Order Comment: Speci men Type: BLOOD SPECIMENOrdering Facility: [facility] Address: [address] [place] [address] Performed By: #### 5 8410-2 ####[facility] LABCLIA [id number] [place] [address] Hemoglobin (Bld) [Mass/Vol] 13.9 g/dL Normal 11.5-15.5 [facility] Comment on above: Order Comment: Speci men Type: BLOOD SPECIMENOrdering Facility: [facility] Address: [address] [place] [address] Performed By: #### 5 8410-2 ####[facility] LABCLIA [id number] [place] [address] MCH (RBC) [Entitic mass] 30.6 pg Normal 26.0-34.0 [facility] Comment on above: Order Comment: Speci men Type: BLOOD SPECIMENOrdering Facility: [facility] Address: [address] [place] [address] Performed By: #### 5 8410-2 ####[facility]CLIA [id number] [place] [address] MCHC (RBC) [Mass/Vol] 32.3 g/dL Normal 30.5-36.0 [facility] Comment on above: Order Comment: Speci men Type: BLOOD SPECIMENOrdering Facility: [facility] Address: [address] [place] [address] Performed By: #### 5 8410-2 ####[facility] LABIA [id number] [place] [address] MCV (RBC) [Entitic vol] 94.9 fL Normal 80.0-100.0 [facility] Comment on above: Order Comment: Speci men Type: BLOOD SPECIMENOrdering Facility: [facility] Address: [address] [place] [address] Performed By: #### 5 8410-2 ####[facility]CLIA [id number] [place] [address] Nucleated RBC (Bld) [#/Vol] 10*3/uL Normal <0.01 [facility] Comment on above: Order Comment: Speci men Type: BLOOD SPECIMENOrdering Facility: [facility] Address: [address] [place] [address] Performed By: #### 5 8410-2 ####[facility]CLIA [id number] [place] [address] Platelet mean volume (Bld) [Entitic vol] 9.5 fL Normal 9.0-12.7 [facility] Comment on above: Order Comment: Speci men Type: BLOOD SPECIMENOrdering Facility: [facility] Address: [address] [place] [address] Performed By: #### 5 8410-2 ####[facility]CLIA [id number] [place] [address] Platelets (Bld) [#/Vol] 320 10*3/uL Normal 150-400 [facility] Comment on above: Order Comment: Speci men Type: BLOOD SPECIMENOrdering Facility: [facility] Address: [address] [place] [address] Performed By: #### 5 8410-2 ####[facility] LABCLIA [id number] [place] [address] RBC (Bld) [#/Vol] 4.54 10*6/uL Normal 3.90-5.20 [facility] Comment on above: Order Comment: Speci men Type: BLOOD SPECIMENOrdering Facility: [facility] Address: [address] [place] [address] Performed By: #### 5 8410-2 ####[facility]CLIA [id number] [place] [address] [facility] (Bld) [#/Vol] 15.15 10*3/uL High 3.70-11.00 [facility] Comment on above: Order Comment: Speci men Type: BLOOD SPECIMENOrdering Facility: [facility] Address: [address] [place] [address] Performed By: #### 5 8410-2 ####[facility] LABCLIA [id number] [place] [address] CNNURSEon 06-10-2023 CNNURSE Normal [facility] CNOVSPon 06-10-2023 CNOVSP Normal [facility] CRP SerPl-mCncon 06-10-2023 CRP [Mass/Vol] mg/L Normal <0.9 [facility] Comment on above: Order Comment: Speci men Type: BLOOD SPECIMENOrdering Facility: [facility] Address: [address] [place] [address] Performed By: #### 1 988-5 ####[facility] LABCLIA [id number] [place] [id number] [facility] Comprehensive metabolic 2000 panelon 06-10-2023 Albumin [Mass/Vol] 4.1 g/dL Normal 3.9-4.9 [facility] Comment on above: Order Comment: Speci men Type: BLOOD SPECIMENOrdering Facility: [facility] Address: [address] [place] [address] Performed By: #### 2 4323-8 ####[facility] LABCLIA [id number] [place] [address] ALP [Catalytic activity/Vol] 72 U/L Normal 34-123 [facility] Comment on above: Order Comment: Speci men Type: BLOOD SPECIMENOrdering Facility: [facility] Address: [address] [place] [address] Performed By: #### 2 4323-8 ####[facility] LABCLIA [id number] [place] [address] ALT [Catalytic activity/Vol] 22 U/L Normal 7-38 [facility] Comment on above: Order Comment: Speci men Type: BLOOD SPECIMENOrdering Facility: [facility] Address: [address] [place] [address] Performed By: #### 2 4323-8 ####[facility] LABCLIA [id number] [place] [address] Anion gap [Moles/Vol] 10 mmol/L Normal 9-18 [facility] Comment on above: Order Comment: Speci men Type: BLOOD SPECIMENOrdering Facility: [facility] Address: [address] [place] [address] Performed By: #### 2 4323-8 ####[facility] LABCLIA [id number] [place] [address] AST [Catalytic activity/Vol] 9 U/L Low 13-35 [facility] Comment on above: Order Comment: Speci men Type: BLOOD SPECIMENOrdering Facility: [facility] Address: [address] [place] [address] Performed By: #### 2 4323-8 ####[facility] LABCLIA [id number] [place] [address] Bilirubin [Mass/Vol] 0.2 mg/dL Normal 0.2-1.3 [facility] Comment on above: Order Comment: Speci men Type: BLOOD SPECIMENOrdering Facility: [facility] Address: [address] [place] [address] Performed By: #### 2 4323-8 ####[facility] LABCLIA [id number] [place] [address] Calcium [Mass/Vol] 9.8 mg/dL Normal 8.5-10.2 [facility] Comment on above: Order Comment: Speci men Type: BLOOD SPECIMENOrdering Facility: [facility] Address: [address] [place] [address] Performed By: #### 2 4323-8 ####[facility] LABCLIA [id number] [place] [address] Chloride [Moles/Vol] 107 mmol/L High 97-105 [facility] Comment on above: Order Comment: Speci men Type: BLOOD SPECIMENOrdering Facility: [facility] Address: [address] [place] [address] Performed By: #### 2 4323-8 ####[facility] LABCLIA [id number] [place] [address] CO2 [Moles/Vol] 24 mmol/L Normal 22-30 [facility] Comment on above: Order Comment: Speci men Type: BLOOD SPECIMENOrdering Facility: [facility] Address: [address] [place] [address] Performed By: #### 2 4323-8 ####[facility] LABCLIA [id number] [place] [address] Creatinine [Mass/Vol] 0.80 mg/dL Normal 0.58-0.96 [facility] Comment on above: Order Comment: Speci men Type: BLOOD SPECIMENOrdering Facility: [facility] Address: [address] [place] [address] Performed By: #### 2 4323-8 ####[facility] LABCLIA [id number] [place] [address] Creatinine and Glomerular filtration rate.predicted panel (S/P/Bld) 94 mL/min/1.73m??? Normal >=60 [facility] Comment on above: Order Comment: Speci men Type: BLOOD SPECIMENOrdering Facility: [facility] Address: [address] [place] [address] Result Comment: Erin mated Glomerular Filtration Rate [...] GFR. Performed By: #### 2 4323-8 ####[facility] LABCLIA [id number] [place] [address] Glucose [Mass/Vol] 98 mg/dL Normal 74-99 [facility] Comment on above: Order Comment: Speci men Type: BLOOD SPECIMENOrdering Facility: [facility] Address: [address] [place], [place] [address] Result Comment: The [place] [employer] (ADA) provides guidance for cutoff [...] Standards of Medical Care in Diabetes 2016, [place] [employer]. Diabetes Care. 2016.39(Suppl 1). Performed By: #### 2 4323-8 ####[facility] LABCLIA [id number] [place] [address] Potassium [Moles/Vol] 3.6 mmol/L Low 3.7-5.1 [facility] Comment on above: Order Comment: Speci men Type: BLOOD SPECIMENOrdering Facility: [facility] Address: [address] [place] [address] Performed By: #### 2 4323-8 ####[facility] LABCLIA [id number] [place] [address] Protein [Mass/Vol] 7.0 g/dL Normal 6.3-8.0 [facility] Comment on above: Order Comment: Speci men Type: BLOOD SPECIMENOrdering Facility: [facility] Address: [address] [place] [address] Performed By: #### 2 4323-8 ####[facility] LABCLIA [id number] [place] [address] Sodium [Moles/Vol] 141 mmol/L Normal 136-144 [facility] Comment on above: Order Comment: Speci men Type: BLOOD SPECIMENOrdering Facility: [facility] Address: [address] [place] [address] Performed By: #### 2 4323-8 ####[facility] LABCLIA [id number] [place] [address] Urea nitrogen [Mass/Vol] 17 mg/dL Normal 7-21 [facility] Comment on above: Order Comment: Speci men Type: BLOOD SPECIMENOrdering Facility: [facility] Address: [address] [place] [address] Performed By: #### 2 4323-8 ####[facility] LABCLIA [id number] [place] [address] ESR Westergren method (Bld) [Velocity]on 06-10-2023 ESR (Bld) [Velocity] 28 mm/h High 0-20 [facility] Comment on above: Order Comment: Speci men Type: BLOOD SPECIMENOrdering Facility: [facility] Address: [address] [place] [address] Performed By: #### 4 537-7 ####[facility] LABCLIA [id number] [facility] [id number] [id number] [place] CBC W Auto Differential pane l (Bld)on 06-03-2023 Basophils (Bld) [#/Vol] 0.05 10*3/uL Normal <0.11 [facility] Comment on above: Order Comment: Speci men Type: BLOOD SPECIMENOrdering Facility: [facility] Address: [address] [place] [address] Performed By: #### 5 7021-8 ####[facility] LABCLIA [id number] [place] [address] Basophils/100 WBC (Bld) 0.4 % Normal [facility] Comment on above: Order Comment: Speci men Type: BLOOD SPECIMENOrdering Facility: [facility] Address: [address] [place] [address] Performed By: #### 5 7021-8 ####[facility] LABCLIA [id number] [place] [address] Differential cell count method Nom (Bld) Auto Normal [facility] Comment on above: Order Comment: Speci men Type: BLOOD SPECIMENOrdering Facility: [facility] Address: [address] [place] [address] Performed By: #### 5 7021-8 ####[facility] LABCLIA [id number] [place] [address] Eosinophils (Bld) [#/Vol] 0.14 10*3/uL Normal <0.46 [facility] Comment on above: Order Comment: Speci men Type: BLOOD SPECIMENOrdering Facility: [facility] Address: [address] [place] [address] Performed By: #### 5 7021-8 ####[facility] LABCLIA [id number] [place] [address] Eosinophils/100 WBC (Bld) 1.1 % Normal [facility] Comment on above: Order Comment: Speci men Type: BLOOD SPECIMENOrdering Facility: [facility] Address: [address] [place] [address] Performed By: #### 5 7021-8 ####[facility] LABCLIA [id number] [place] [address] Erythrocyte distribution width (RBC) [Ratio] 14.5 % Normal 11.5-15.0 [facility] Comment on above: Order Comment: Speci men Type: BLOOD SPECIMENOrdering Facility: [facility] Address: [address] [place] [address] Performed By: #### 5 7021-8 ####[facility] LABCLIA [id number] [place] [address] Hematocrit (Bld) [Volume fraction] 40.5 % Normal 36.0-46.0 [facility] Comment on above: Order Comment: Speci men Type: BLOOD SPECIMENOrdering Facility: [facility] Address: [address] [place] [address] Performed By: #### 5 7021-8 ####[facility] LABCLIA [id number] [place] [address] Hemoglobin (Bld) [Mass/Vol] 13.1 g/dL Normal 11.5-15.5 [facility] Comment on above: Order Comment: Speci men Type: BLOOD SPECIMENOrdering Facility: [facility] Address: [address] [place] [address] Performed By: #### 5 7021-8 ####[facility] LABCLIA [id number] [place] [address] Immature granulocytes (Bld) [#/Vol] 0.20 10*3/uL High <0.10 [facility] Comment on above: Order Comment: Speci men Type: BLOOD SPECIMENOrdering Facility: [facility] Address: [address] [place] [address] Performed By: #### 5 7021-8 ####[facility] LABCLIA [id number] [place] [address] Immature granulocytes/100 WBC (Bld) 1.6 % Normal [facility] Comment on above: Order Comment: Speci men Type: BLOOD SPECIMENOrdering Facility: [facility] Address: [address] [place] [address] Performed By: #### 5 7021-8 ####[facility] LABCLIA [id number] [place] [address] Lymphocytes (Bld) [#/Vol] 4.13 10*3/uL High 1.00-4.00 [facility] Comment on above: Order Comment: Speci men Type: BLOOD SPECIMENOrdering Facility: [facility] Address: [address] [place] [address] Performed By: #### 5 7021-8 ####[facility] LABCLIA [id number] [place] [address] Lymphocytes/100 WBC (Bld) 32.1 % Normal [facility] Comment on above: Order Comment: Speci men Type: BLOOD SPECIMENOrdering Facility: [facility] Address: [address] [place] [address] Performed By: #### 5 7021-8 ####[facility] LABCLIA [id number] [place] [address] MCH (RBC) [Entitic mass] 30.8 pg Normal 26.0-34.0 [facility] Comment on above: Order Comment: Speci men Type: BLOOD SPECIMENOrdering Facility: [facility] Address: [address] [place] [address] Performed By: #### 5 7021-8 ####[facility] LABCLIA [id number] [place] [address] MCHC (RBC) [Mass/Vol] 32.3 g/dL Normal 30.5-36.0 [facility] Comment on above: Order Comment: Speci men Type: BLOOD SPECIMENOrdering Facility: [facility] Address: [address] [place] [address] Performed By: #### 5 7021-8 ####[facility] LABCLIA [id number] [place] [address] MCV (RBC) [Entitic vol] 95.1 fL Normal 80.0-100.0 [facility] Comment on above: Order Comment: Speci men Type: BLOOD SPECIMENOrdering Facility: [facility] Address: [address] [place] [address] Performed By: #### 5 7021-8 ####[facility] LABIA [id number] [place] [address] Monocytes (Bld) [#/Vol] 0.79 10*3/uL Normal <0.87 [facility] Comment on above: Order Comment: Speci men Type: BLOOD SPECIMENOrdering Facility: [facility] Address: [address] [place], [place] [address] Performed By: #### 5 7021-8 ####[facility] LABCLIA [id number] [place] [address] Monocytes/100 WBC (Bld) 6.1 % Normal [facility] Comment on above: Order Comment: Speci men Type: BLOOD SPECIMENOrdering Facility: [facility] Address: [address] [place] [address] Performed By: #### 5 7021-8 ####[facility] LABCLIA [id number] [place] [address] Neutrophils (Bld) [#/Vol] 7.56 10*3/uL High 1.45-7.50 [facility] Comment on above: Order Comment: Speci men Type: BLOOD SPECIMENOrdering Facility: [facility] Address: [address] [place] [address] Performed By: #### 5 7021-8 ####[facility] LABCLIA [id number] [place] [address] Neutrophils/100 WBC (Bld) 58.7 % Normal [facility] Comment on above: Order Comment: Speci men Type: BLOOD SPECIMENOrdering Facility: [facility] Address: [address] [place] [address] Performed By: #### 5 7021-8 ####[facility] LABCLIA [id number] [place] [address] Nucleated RBC (Bld) [#/Vol] 10*3/uL Normal <0.01 [facility] Comment on above: Order Comment: Speci men Type: BLOOD SPECIMENOrdering Facility: [facility] Address: [address] [place] [address] Performed By: #### 5 7021-8 ####[facility] LABCLIA [id number] [place] [address] Nucleated RBC/100 WBC (Bld) [Ratio] 0.0 /100 WBC Normal [facility] Comment on above: Order Comment: Speci men Type: BLOOD SPECIMENOrdering Facility: [facility] Address: [address] [place] [address] Performed By: #### 5 7021-8 ####[facility] LABCLIA [id number] [place] [address] Platelet mean volume (Bld) [Entitic vol] 9.7 fL Normal 9.0-12.7 [facility] Comment on above: Order Comment: Speci men Type: BLOOD SPECIMENOrdering Facility: [facility] Address: [address] [place] [address] Performed By: #### 5 7021-8 ####[facility] LABCLIA [id number] [place] [address] Platelets (Bld) [#/Vol] 261 10*3/uL Normal 150-400 [facility] Comment on above: Order Comment: Speci men Type: BLOOD SPECIMENOrdering Facility: [facility] Address: [address] [place] [address] Performed By: #### 5 7021-8 ####[facility] LABCLIA [id number] [place] [address] RBC (Bld) [#/Vol] 4.26 10*6/uL Normal 3.90-5.20 [facility] Comment on above: Order Comment: Speci men Type: BLOOD SPECIMENOrdering Facility: [facility] Address: [address] [place] [address] Performed By: #### 5 7021-8 ####[facility] LABCLIA [id number] [place] [address] WBC (Bld) [#/Vol] 12.87 10*3/uL High 3.70-11.00 [facility] Comment on above: Order Comment: Speci men Type: BLOOD SPECIMENOrdering Facility: [facility] Address: [address] [place] [address] Performed By: #### 5 7021-8 ####[facility] LABCLIA [id number] [place] [address] Comprehensive metabolic 2000 panelon 06-03-2023 Albumin [Mass/Vol] 4.0 g/dL Normal 3.9-4.9 [facility] Comment on above: Order Comment: Speci men Type: BLOOD SPECIMENOrdering Facility: [facility] Address: [address] [place] [address] Performed By: #### 2 4323-8 ####[facility] LABCLIA [id number] [place] [address] ALP [Catalytic activity/Vol] 73 U/L Normal 34-123 [facility] Comment on above: Order Comment: Speci men Type: BLOOD SPECIMENOrdering Facility: [facility] Address: [address] [place] [address] Performed By: #### 2 4323-8 ####[facility] LABCLIA [id number] [place] [address] ALT [Catalytic activity/Vol] 21 U/L Normal 7-38 [facility] Comment on above: Order Comment: Speci men Type: BLOOD SPECIMENOrdering Facility: [facility] Address: [address] [place] [address] Performed By: #### 2 4323-8 ####[facility] LABCLIA [id number] [place] [address] Anion gap [Moles/Vol] 10 mmol/L Normal 9-18 [facility] Comment on above: Order Comment: Speci men Type: BLOOD SPECIMENOrdering Facility: [facility] Address: [address] [place] [address] Performed By: #### 2 4323-8 ####[facility] LABIA [id number] [place] [address] AST [Catalytic activity/Vol] 10 U/L Low 13-35 [facility] Comment on above: Order Comment: Speci men Type: BLOOD SPECIMENOrdering Facility: [facility] Address: [address] [place] [address] Performed By: #### 2 4323-8 ####[facility] LABCLIA [id number] [place] [address] Bilirubin [Mass/Vol] 0.2 mg/dL Normal 0.2-1.3 [facility] Comment on above: Order Comment: Speci men Type: BLOOD SPECIMENOrdering Facility: [facility] Address: [address] [place] [address] Performed By: #### 2 4323-8 ####[facility] LABCLIA [id number] [place] [address] Calcium [Mass/Vol] 9.6 mg/dL Normal 8.5-10.2 [facility] Comment on above: Order Comment: Speci men Type: BLOOD SPECIMENOrdering Facility: [facility] Address: [address] [place] [address] Performed By: #### 2 4323-8 ####[facility] LABCLIA [id number] [place] [address] Chloride [Moles/Vol] 108 mmol/L High 97-105 [facility] Comment on above: Order Comment: Speci men Type: BLOOD SPECIMENOrdering Facility: [facility] Address: [address] [place] [address] Performed By: #### 2 4323-8 ####[facility] LABCLIA [id number] [place] [address] CO2 [Moles/Vol] 24 mmol/L Normal 22-30 [facility] Comment on above: Order Comment: Speci men Type: BLOOD SPECIMENOrdering Facility: [facility] Address: [address] [place] [address] Performed By: #### 2 4323-8 ####[facility] LABCLIA [id number] [place] [address] Creatinine [Mass/Vol] 0.70 mg/dL Normal 0.58-0.96 [facility] Comment on above: Order Comment: Semaj cortés Type: BLOOD SPECIMENOrdering Facility: [facility] Address: [address] [place] [address] Performed By: #### 2 4323-8 ####[facility] LABCLIA [id number] [place] [address] Creatinine and Glomerular filtration rate.predicted panel (S/P/Bld) 111 mL/min/1.73m??? Normal >=60 [facility] Comment on above: Order Comment: Specgodwin men Type: BLOOD SPECIMENOrdering Facility: [facility] Address: [address] [place] [address] Result Comment: Erin mated Glomerular Filtration Rate [...] GFR. Performed By: #### 2 4323-8 ####[facility] LABCLIA [id number] [place] [address] Glucose [Mass/Vol] 106 mg/dL High 74-99 [facility] Comment on above: Order Comment: Semaj cortés Type: BLOOD SPECIMENOrdering Facility: [facility] Address: [address] [place] [address] Result Comment: The [place] [employer] (ADA) provides guidance for cutoff [...] Standards of Medical Care in Diabetes 2016, [place] [employer]. Diabetes Care. 2016.39(Suppl 1). Performed By: #### 2 4323-8 ####[facility] LABCLIA [id number] [place] [address] Potassium [Moles/Vol] 4.0 mmol/L Normal 3.7-5.1 [facility] Comment on above: Order Comment: Speci men Type: BLOOD SPECIMENOrdering Facility: [facility] Address: [address] [place] [address] Performed By: #### 2 4323-8 ####[facility] LABCLIA [id number] [place] [address] Protein [Mass/Vol] 6.8 g/dL Normal 6.3-8.0 [facility] Comment on above: Order Comment: Speci men Type: BLOOD SPECIMENOrdering Facility: [facility] Address: [address] [place] [address] Performed By: #### 2 4323-8 ####[facility] LABCLIA [id number] [place] [address] Sodium [Moles/Vol] 142 mmol/L Normal 136-144 [facility] Comment on above: Order Comment: Speci men Type: BLOOD SPECIMENOrdering Facility: [facility] Address: [address] [place] [address] Performed By: #### 2 4323-8 ####[facility] LABCLIA [id number] [place] [address] Urea nitrogen [Mass/Vol] 12 mg/dL Normal 7-21 [facility] Comment on above: Order Comment: Speci men Type: BLOOD SPECIMENOrdering Facility: [facility] Address: [address] [place] [address] Performed By: #### 2 4323-8 ####[facility] LABIA [id number] [place] [address] ESR Westergren method (Bld) [Velocity]on 06-03-2023 ESR (Bld) [Velocity] 35 mm/h High 0-20 [facility] Comment on above: Order Comment: Speci men Type: BLOOD SPECIMENOrdering Facility: [facility] Address: [address] [place] [address] Performed By: #### 4 537-7 ####[facility] LABCLIA [id number] [place] [address] [place] Ferritin [facility] Ferritin [Mass/Vol] 23.4 ng/mL Normal 14.7-205.1 [facility] Comment on above: Order Comment: Speci men Type: BLOOD SPECIMENOrdering Facility: [facility] Address: [address] [place] [address] Performed By: #### 5 0190-8, 2132-01, 2275-08, 2283-12 ####[facility] LABCLIA [id number] [place] [address] [place] Folate SerPl-ncon 06-03-19 24 Folate [Mass/Vol] 8.2 ng/mL Normal >4.7 [facility] Comment on above: Order Comment: Speci men Type: BLOOD SPECIMENOrdering Facility: [facility] Address: [address] [place] [address] Performed By: #### 5 0190-8, 9, 4, 2283-12 ####[facility] LABCLIA [id number] [place] [address] [place] Iron and Iron binding capaci ty panelon 06-03-2023 Iron [Mass/Vol] 67 ug/dL Normal 41-186 [facility] Comment on above: Order Comment: Speci men Type: BLOOD SPECIMENOrdering Facility: [facility] Address: [address] [place] [address] Performed By: #### 5 0190-8, 9, 4, 2283-12 ####[facility] LABCLIA [id number] [address] [place] Iron binding capacity [Mass/Vol] 395 ug/dL High 232-386 [facility] Comment on above: Order Comment: Speci men Type: BLOOD SPECIMENOrdering Facility: [facility] Address: [address] [place] [address] Performed By: #### 5 0190-8, 9, 2275-4, 8 ####[facility] LABCLIA [id number] [place] [address] [place] Iron/TIBC [Molar ratio] 17.0 % Normal 15.0-57.0 [facility] Comment on above: Order Comment: Speci men Type: BLOOD SPECIMENOrdering Facility: [facility] Address: [address] [place] [address] Performed By: #### 5 0190-8, 9, 4, 2283-12 ####[facility] LABIA [id number] [place] [address] [place] Vit B12 [facility] 06-03- 024 Cobalamin (Vitamin B12) [Mass/Vol] 428 pg/mL Normal 232-1245 [facility] Comment on above: Order Comment: Speci men Type: BLOOD SPECIMENOrdering Facility: [facility] Address: [address] [place] [address] Performed By: #### 5 0190-8, 9, 2275-08, 2283-12 ####[facility] LABIA [id number] [place] [id number] [place] CNNURSEon 05-10-2023 CNNURSE Normal [facility] XR CERVICAL SPINE COMPLETE 4 [...] Normal Not Available CNPNon 04-22-2023 CNPN Normal [facility] CNNURSEon 04-16-2023 CNNURSE Normal [facility] CNOVSPon 04-16-2023 CNOVSP Normal [facility] CBC W Auto Differential pane l (Bld)on 04-09-2023 Basophils (Bld) [#/Vol] 0.05 10*3/uL Normal <0.11 [facility] Comment on above: Order Comment: Speci men Type: BLOOD SPECIMENOrdering Facility: [facility] Address: [address] [place] [id number] Performed By: #### 5 7021-8 ####[facility] LABCLIA [id number] [place] [address] Basophils/100 WBC (Bld) 0.5 % Normal [facility] Comment on above: Order Comment: Speci men Type: BLOOD SPECIMENOrdering Facility: [facility] Address: [address] [place] [address] Performed By: #### 5 7021-8 ####[facility] LABCLIA [id number] [place] [address] Differential cell count method Nom (Bld) Auto Normal [facility] Comment on above: Order Comment: Speci men Type: BLOOD SPECIMENOrdering Facility: [facility] Address: [address] [place] [address] Performed By: #### 5 7021-8 ####[facility] LABCL[facility] [id number] [place] [address] Eosinophils (Bld) [#/Vol] 0.09 10*3/uL Normal <0.46 [facility] Comment on above: Order Comment: Speci men Type: BLOOD SPECIMENOrdering Facility: [facility] Address: [address] [place] [address] Performed By: #### 5 7021-8 ####[facility]CL[facility] [id number] [place] [address] Eosinophils/100 WBC (Bld) 0.9 % Normal [facility] Comment on above: Order Comment: Speci men Type: BLOOD SPECIMENOrdering Facility: [facility] Address: [address] [place] [address] Performed By: #### 5 7021-8 ####[facility]CL[facility] [id number] [place] [address] Erythrocyte distribution width (RBC) [Ratio] 14.8 % Normal 11.5-15.0 [facility] Comment on above: Order Comment: Speci men Type: BLOOD SPECIMENOrdering Facility: [facility] Address: [address] [place] [address] Performed By: #### 5 7021-8 ####[facility]CL[facility] [id number] [place] [address] Hematocrit (Bld) [Volume fraction] 41.1 % Normal 36.0-46.0 [facility] Comment on above: Order Comment: Speci men Type: BLOOD SPECIMENOrdering Facility: [facility] Address: [address] [place] [address] Performed By: #### 5 7021-8 ####[facility]CL[facility] [id number] [place] [address] Hemoglobin (Bld) [Mass/Vol] 13.1 g/dL Normal 11.5-15.5 [facility] Comment on above: Order Comment: Speci men Type: BLOOD SPECIMENOrdering Facility: [facility] Address: [address] [place] [address] Performed By: #### 5 7021-8 ####[facility]CL[facility] [id number] [place] [address] Immature granulocytes (Bld) [#/Vol] 0.05 10*3/uL Normal <0.10 [facility] Comment on above: Order Comment: Speci men Type: BLOOD SPECIMENOrdering Facility: [facility] Address: [address] [place] [address] Performed By: #### 5 7021-8 ####[facility]CL[facility] [id number] [place] [address] Immature granulocytes/100 WBC (Bld) 0.5 % Normal [facility] Comment on above: Order Comment: Speci men Type: BLOOD SPECIMENOrdering Facility: [facility] Address: [address] [place] [address] Performed By: #### 5 7021-8 ####[facility] [id number] [place] [address] Lymphocytes (Bld) [#/Vol] 2.90 10*3/uL Normal 1.00-4.00 [facility] Comment on above: Order Comment: Speci men Type: BLOOD SPECIMENOrdering Facility: [facility] Address: [address] [place] [address] Performed By: #### 5 7021-8 ####[facility]CL[facility] [id number] [place] [address] Lymphocytes/100 WBC (Bld) 28.9 % Normal [facility] Comment on above: Order Comment: Speci men Type: BLOOD SPECIMENOrdering Facility: [facility] Address: [address] [place] [address] Performed By: #### 5 7021-8 ####[facility] [id number] [place] [address] MCH (RBC) [Entitic mass] 30.5 pg Normal 26.0-34.0 [facility] Comment on above: Order Comment: Speci men Type: BLOOD SPECIMENOrdering Facility: [facility] Address: [address] [place] [address] Performed By: #### 5 7021-8 ####[facility] [id number] [place] [address] MCHC (RBC) [Mass/Vol] 31.9 g/dL Normal 30.5-36.0 [facility] Comment on above: Order Comment: Speci men Type: BLOOD SPECIMENOrdering Facility: [facility] Address: [address] [place] [address] Performed By: #### 5 7021-8 ####[facility]CL[facility] [id number] [place] [address] MCV (RBC) [Entitic vol] 95.8 fL Normal 80.0-100.0 [facility] Comment on above: Order Comment: Speci men Type: BLOOD SPECIMENOrdering Facility: [facility] Address: [address] [place] [address] Performed By: #### 5 7021-8 ####[facility] [id number] [place] [address] Monocytes (Bld) [#/Vol] 0.54 10*3/uL Normal <0.87 [facility] Comment on above: Order Comment: Speci men Type: BLOOD SPECIMENOrdering Facility: [facility] Address: [address] [place] [address] Performed By: #### 5 7021-8 ####[facility] [id number] [place] [address] Monocytes/100 WBC (Bld) 5.4 % Normal [facility] Comment on above: Order Comment: Speci men Type: BLOOD SPECIMENOrdering Facility: [facility] Address: [address] [place] [address] Performed By: #### 5 7021-8 ####[facility] [id number] [place] [address] Neutrophils (Bld) [#/Vol] 6.41 10*3/uL Normal 1.45-7.50 [facility] Comment on above: Order Comment: Speci men Type: BLOOD SPECIMENOrdering Facility: [facility] Address: [address] [place] [address] Performed By: #### 5 7021-8 ####[facility] [id number] [place] [address] Neutrophils/100 WBC (Bld) 63.8 % Normal [facility] Comment on above: Order Comment: Speci men Type: BLOOD SPECIMENOrdering Facility: [facility] Address: [address] [place] [address] Performed By: #### 5 7021-8 ####[facility] [id number] [place] [address] Nucleated RBC (Bld) [#/Vol] 10*3/uL Normal <0.01 [facility] Comment on above: Order Comment: Speci men Type: BLOOD SPECIMENOrdering Facility: [facility] Address: [address] [place] [address] Performed By: #### 5 7021-8 ####[facility]CL[facility] [id number] [place] [address] Nucleated RBC/100 WBC (Bld) [Ratio] 0.0 /100 WBC Normal [facility] Comment on above: Order Comment: Speci men Type: BLOOD SPECIMENOrdering Facility: [facility] Address: [address] [place] [address] Performed By: #### 5 7021-8 ####[facility] [id number] [place] [address] Platelet mean volume (Bld) [Entitic vol] 9.4 fL Normal 9.0-12.7 [facility] Comment on above: Order Comment: Speci men Type: BLOOD SPECIMENOrdering Facility: [facility] Address: [address] [place] [address] Performed By: #### 5 7021-8 ####[facility] [id number] [place] [address] Platelets (Bld) [#/Vol] 290 10*3/uL Normal 150-400 [facility] Comment on above: Order Comment: Speci men Type: BLOOD SPECIMENOrdering Facility: [facility] Address: [address] [place] [address] Performed By: #### 5 7021-8 ####[facility] [id number] [place] [address] RBC (Bld) [#/Vol] 4.29 10*6/uL Normal 3.90-5.20 [facility] Comment on above: Order Comment: Speci men Type: BLOOD SPECIMENOrdering Facility: [facility] Address: [address] [place] [address] Performed By: #### 5 7021-8 ####[facility] [id number] [place] [address] WBC (Bld) [#/Vol] 10.04 10*3/uL Normal 3.70-11.00 [facility] Comment on above: Order Comment: Speci men Type: BLOOD SPECIMENOrdering Facility: [facility] Address: [address] [place] [address] Performed By: #### 5 7021-8 ####[facility]CL[facility] [id number] [place] [address] Comprehensive metabolic 2000 panelon 04-09-2023 Albumin [Mass/Vol] 4.1 g/dL Normal 3.9-4.9 [facility] Comment on above: Order Comment: Speci men Type: BLOOD SPECIMENOrdering Facility: [facility] Address: [address] [place] [address] Performed By: #### 2 4323-8 ####[facility] [id number] [place] [address] ALP [Catalytic activity/Vol] 74 U/L Normal 34-123 [facility] Comment on above: Order Comment: Speci men Type: BLOOD SPECIMENOrdering Facility: [facility] Address: [address] [place] [address] Performed By: #### 2 4323-8 ####[facility] [id number] [place] [address] ALT [Catalytic activity/Vol] 17 U/L Normal 7-38 [facility] Comment on above: Order Comment: Speci men Type: BLOOD SPECIMENOrdering Facility: [facility] Address: [address] [place] [address] Performed By: #### 2 4323-8 ####[facility] [id number] [place] [address] Anion gap [Moles/Vol] 12 mmol/L Normal 9-18 [facility] Comment on above: Order Comment: Speci men Type: BLOOD SPECIMENOrdering Facility: [facility] Address: [address] [place] [address] Performed By: #### 2 4323-8 ####[facility]CL[facility] [id number] [place] [address] AST [Catalytic activity/Vol] 11 U/L Low 13-35 [facility] Comment on above: Order Comment: Speci men Type: BLOOD SPECIMENOrdering Facility: [facility] Address: [address] [place] [address] Performed By: #### 2 4323-8 ####[facility]CL[facility] [id number] [place] [address] Bilirubin [Mass/Vol] 0.2 mg/dL Normal 0.2-1.3 [facility] Comment on above: Order Comment: Speci men Type: BLOOD SPECIMENOrdering Facility: [facility] Address: [address] [place] [address] Performed By: #### 2 4323-8 ####[facility]CL[facility] [id number] [place] [address] Calcium [Mass/Vol] 9.4 mg/dL Normal 8.5-10.2 [facility] Comment on above: Order Comment: Speci men Type: BLOOD SPECIMENOrdering Facility: [facility] Address: [address] [place] [address] Performed By: #### 2 4323-8 ####[facility]CL[facility] [id number] [place] [address] Chloride [Moles/Vol] 106 mmol/L High 97-105 [facility] Comment on above: Order Comment: Speci men Type: BLOOD SPECIMENOrdering Facility: [facility] Address: [address] [place] [address] Performed By: #### 2 4323-8 ####[facility]CL[facility] [id number] [place] [address] CO2 [Moles/Vol] 26 mmol/L Normal 22-30 [facility] Comment on above: Order Comment: Speci men Type: BLOOD SPECIMENOrdering Facility: [facility] Address: [address] [place] [address] Performed By: #### 2 4323-8 ####[facility]CL[facility] [id number] [place] [address] Creatinine [Mass/Vol] 0.89 mg/dL Normal 0.58-0.96 [facility] Comment on above: Order Comment: eSmaj cortés Type: BLOOD SPECIMENOrdering Facility: [facility] Address: [address] [place] [address] Performed By: #### 2 4323-8 ####[facility]CL[facility] [id number] [place] [address] Creatinine and Glomerular filtration rate.predicted panel (S/P/Bld) 83 mL/min/1.73m??? Normal >=60 [facility] Comment on above: Order Comment: Semaj cortés Type: BLOOD SPECIMENOrdering Facility: [facility] Address: [address] [place] [address] Result Comment: Erin mated Glomerular Filtration Rate [...] GFR. Performed By: #### 2 4323-8 ####[facility] [id number] [place] [address] Glucose [Mass/Vol] 120 mg/dL High 74-99 [facility] Comment on above: Order Comment: Semaj cortés Type: BLOOD SPECIMENOrdering Facility: [facility] Address: [address] [place] [address] Result Comment: The [place] [employer] (ADA) provides guidance for cutoff [...] Standards of Medical Care in Diabetes 2016, [place] [employer]. Diabetes Care. 2016.39(Suppl 1). Performed By: #### 2 4323-8 ####[facility]CL[facility] [id number] [place] [address] Potassium [Moles/Vol] 3.7 mmol/L Normal 3.7-5.1 [facility] Comment on above: Order Comment: Speci men Type: BLOOD SPECIMENOrdering Facility: [facility] Address: [address] [place] [address] Performed By: #### 2 4323-8 ####[facility]CL[facility] [id number] [place] [address] Protein [Mass/Vol] 6.7 g/dL Normal 6.3-8.0 [facility] Comment on above: Order Comment: Speci men Type: BLOOD SPECIMENOrdering Facility: [facility] Address: [address] [place] [address] Performed By: #### 2 4323-8 ####[facility]CL[facility] [id number] [place] [address] Sodium [Moles/Vol] 144 mmol/L Normal 136-144 [facility] Comment on above: Order Comment: Speci men Type: BLOOD SPECIMENOrdering Facility: [facility] Address: [address] [place] [address] Performed By: #### 2 4323-8 ####[facility] [id number] [place] [address] Urea nitrogen [Mass/Vol] 24 mg/dL High 7-21 [facility] Comment on above: Order Comment: Speci men Type: BLOOD SPECIMENOrdering Facility: [facility] Address: [address] [place] [address] Performed By: #### 2 4323-8 ####[facility]CL[facility] [id number] [place] [address] Ferritin SerPl-mCncon 2022 Ferritin [Mass/Vol] 21.2 ng/mL Normal 14.7-205.1 [facility] Comment on above: Order Comment: Speci men Type: BLOOD SPECIMENOrdering Facility: [facility] Address: [address] [place] [address] Performed By: #### 5 0190-8, 2131-9, 6-4, 2283-8 ####[facility]CLIA [id number] [place] [address] [place] Folate SerPl-mCncon 04-09-20 Folate [Mass/Vol] 10.7 ng/mL Normal >4.7 [facility] Comment on above: Order Comment: Leolai men Type: BLOOD SPECIMENOrdering Facility: [facility] Address: [address] [place] [address] Performed By: #### 5 0190-8, 9, 2275-, 8 ####[facility] LABIA [id number] [place] [address] [place] INSULIN ANTIBODY [facility] 04-09 Insulin Ab Qn (S) <0.4 Normal <0.4 [facility] Comment on above: Order Comment: Leolai [facility] Type: BLOOD SPECIMENOrdering Facility: [facility] Address: [address] [place] [address] Result Comment: Anti -insulin antibody test is used as an aid in diagnosis and prognosis of autoimmune diabetes mellitus in combination with other tests such as anti-GAD65 and anti-IA-2 antibody. A single negative result cannot rule out autoimmune diabetes mellitus. The test is not reliable in patients who had previously received exogenous insulin. Clinical correlation is required. Performed By: #### I NSLAB ####[facility]CLIA [id number] [place] [address] [place] INSULIN ANTIBODY, QUALITATIVE Negative Normal Negative [facility] Comment on above: Order Comment: Speci men Type: BLOOD SPECIMENOrdering Facility: [facility] Address: [address] [place] [address] Performed By: #### I NSLAB ####[facility]CLIA [id number] [place] [address] [place] Insulin SerPl-aCncon 023 Insulin Qn 266.5 u[IU]/mL High 3.0-25.0 [facility] Comment on above: Order Comment: Speci men Type: BLOOD SPECIMENOrdering Facility: [facility] Address: [address] [place] [address] Performed By: #### 2 0448-7 ####[facility]CL[facility] [id number] [place] [address] [place] Iron and Iron binding capaci ty panelon 04-09-2023 Iron [Mass/Vol] 105 ug/dL Normal 41-186 [facility] Comment on above: Order Comment: Speci men Type: BLOOD SPECIMENOrdering Facility: [facility] Address: [address] [place] [address] Performed By: #### 5 0190-8, 2131-9, 2275-08, 8 ####[facility]CL[facility] [id number] [place] [address] [place] Iron binding capacity [Mass/Vol] 414 ug/dL High 232-386 [facility] Comment on above: Order Comment: Speci men Type: BLOOD SPECIMENOrdering Facility: [facility] Address: [address] [place] [address] Performed By: #### 5 0190-8, 9, 2275-08, 8 ####[facility]CL[facility] [id number] [place] [address] [place] Iron/TIBC [Molar ratio] 25.4 % Normal 15.0-57.0 [facility] Comment on above: Order Comment: Speci men Type: BLOOD SPECIMENOrdering Facility: [facility] Address: [address] [place] [id number] Performed By: #### 5 0190-8, 9, 2275-08, 2283-12 ####[facility]CLIA [id number] [place] [id number] [place] Vit B12 SerPl-[facility] 11-17-2 023 Cobalamin (Vitamin B12) [Mass/Vol] 370 pg/mL Normal 232-1245 [facility] Comment on above: Order Comment: Speci men Type: BLOOD SPECIMENOrdering Facility: [facility] Address: [address] [place] [address] Performed By: #### 5 0190-8, 2132-01, 2275-08, 2283-12 ####[facility] LABIA [id number] [place] [address] [place] CNNURSEon 03-19-2023 CNNURSE Normal [facility] CNNURSEon 03-11-2023 CNNURSE Normal [facility] CNPNon 03-01-2023 CNPN Normal [facility] CNNURSEon 02-19-2023 CNNURSE Normal [facility] CNOVSPon 02-19-2023 CNOVSP Normal [facility] B2 Microglob SerPl-ncon Vexj-4-Qnywydnteyaci [Mass/Vol] 1.9 ug/mL Normal 0.8-2.4 [facility] Comment on above: Order Comment: Speci men Type: BLOOD SPECIMENOrdering Facility: [facility] Address: [address] [place] [id number] Result Comment: Beta -2 Microglobulin test is performed using the [employer] immunoturbidimetric method. Results obtained with different methods or kits cannot be used interchangeably. Performed By: #### 1 952-1, 55887-0, 2275-08 ####[facility]CLIA [id number] [place] [id number] [place] CBC W Auto Differential pane l (Bld)on 02-11-2023 Basophils (Bld) [#/Vol] 0.08 10*3/uL Normal <0.11 [facility] Comment on above: Order Comment: Speci men Type: BLOOD SPECIMENOrdering Facility: [facility] Address: [address] [place] [address] Performed By: #### 5 7021-8 ####[facility]CL[facility] [id number] [place] [address] Basophils/100 WBC (Bld) 0.8 % Normal [facility] Comment on above: Order Comment: Speci men Type: BLOOD SPECIMENOrdering Facility: [facility] Address: [address] [place] [address] Performed By: #### 5 7021-8 ####[facility] [id number] [place] [address] Differential cell count method Nom (Bld) Auto Normal [facility] Comment on above: Order Comment: Speci men Type: BLOOD SPECIMENOrdering Facility: [facility] Address: [address] [place] [address] Performed By: #### 5 7021-8 ####[facility] [id number] [place] [address] Eosinophils (Bld) [#/Vol] 0.16 10*3/uL Normal <0.46 [facility] Comment on above: Order Comment: Speci men Type: BLOOD SPECIMENOrdering Facility: [facility] Address: [address] [address] Performed By: #### 5 7021-8 ####[facility] [id number] [place] [address] Eosinophils/100 WBC (Bld) 1.6 % Normal [facility] Comment on above: Order Comment: Speci men Type: BLOOD SPECIMENOrdering Facility: [facility] Address: [address] [place] [address] Performed By: #### 5 7021-8 ####[facility] [id number] [place] [address] Erythrocyte distribution width (RBC) [Ratio] 14.6 % Normal 11.5-15.0 [facility] Comment on above: Order Comment: Speci men Type: BLOOD SPECIMENOrdering Facility: [facility] Address: [address] [place] [address] Performed By: #### 5 7021-8 ####[facility]CL[facility] [id number] [place] [address] Hematocrit (Bld) [Volume fraction] 41.0 % Normal 36.0-46.0 [facility] Comment on above: Order Comment: Speci men Type: BLOOD SPECIMENOrdering Facility: [facility] Address: [address] [place] [address] Performed By: #### 5 7021-8 ####[facility] LABIA [id number] [place] [address] Hemoglobin (Bld) [Mass/Vol] 13.2 g/dL Normal 11.5-15.5 [facility] Comment on above: Order Comment: Speci men Type: BLOOD SPECIMENOrdering Facility: [facility] Address: [address] [place] [address] Performed By: #### 5 7021-8 ####[facility] [id number] [place] [address] Immature granulocytes (Bld) [#/Vol] 0.07 10*3/uL Normal <0.10 [facility] Comment on above: Order Comment: Speci men Type: BLOOD SPECIMENOrdering Facility: [facility] Address: [address] [place] [address] Performed By: #### 5 7021-8 ####[facility] [id number] [place] [address] Immature granulocytes/100 WBC (Bld) 0.7 % Normal [facility] Comment on above: Order Comment: Speci men Type: BLOOD SPECIMENOrdering Facility: [facility] Address: [address] [address] Performed By: #### 5 7021-8 ####[facility] [id number] [place] [address] Lymphocytes (Bld) [#/Vol] 2.29 10*3/uL Normal 1.00-4.00 [facility] Comment on above: Order Comment: Speci men Type: BLOOD SPECIMENOrdering Facility: [facility] Address: [address] [place] [address] Performed By: #### 5 7021-8 ####[facility] [id number] [place] [address] Lymphocytes/100 WBC (Bld) 22.4 % Normal [facility] Comment on above: Order Comment: Speci men Type: BLOOD SPECIMENOrdering Facility: [facility] Address: [address] [place] [address] Performed By: #### 5 7021-8 ####[facility]CL[facility] [id number] [place] [address] MCH (RBC) [Entitic mass] 30.6 pg Normal 26.0-34.0 [facility] Comment on above: Order Comment: Speci men Type: BLOOD SPECIMENOrdering Facility: [facility] Address: [address] [place] [address] Performed By: #### 5 7021-8 ####[facility] [id number] [place] [address] MCHC (RBC) [Mass/Vol] 32.2 g/dL Normal 30.5-36.0 [facility] Comment on above: Order Comment: Speci men Type: BLOOD SPECIMENOrdering Facility: [facility] Address: [address] [place] [address] Performed By: #### 5 7021-8 ####[facility]CL[facility] [id number] [place] [address] MCV (RBC) [Entitic vol] 94.9 fL Normal 80.0-100.0 [facility] Comment on above: Order Comment: Speci men Type: BLOOD SPECIMENOrdering Facility: [facility] Address: [address] [place] [address] Performed By: #### 5 7021-8 ####[facility]CL[facility] [id number] [place] [address] Monocytes (Bld) [#/Vol] 0.62 10*3/uL Normal <0.87 [facility] Comment on above: Order Comment: Speci men Type: BLOOD SPECIMENOrdering Facility: [facility] Address: [address] [place] [address] Performed By: #### 5 7021-8 ####[facility] [id number] [place] [address] Monocytes/100 WBC (Bld) 6.1 % Normal [facility] Comment on above: Order Comment: Speci men Type: BLOOD SPECIMENOrdering Facility: [facility] Address: [address] [place] [address] Performed By: #### 5 7021-8 ####[facility] [id number] [place] [address] Neutrophils (Bld) [#/Vol] 6.99 10*3/uL Normal 1.45-7.50 [facility] Comment on above: Order Comment: Speci men Type: BLOOD SPECIMENOrdering Facility: [facility] Address: [address] [place] [address] Performed By: #### 5 7021-8 ####[facility] [id number] [place] [address] Neutrophils/100 WBC (Bld) 68.4 % Normal [facility] Comment on above: Order Comment: Speci men Type: BLOOD SPECIMENOrdering Facility: [facility] Address: [address] [address] Performed By: #### 5 7021-8 ####[facility] LABCLIA [id number] [place] [address] Nucleated RBC (Bld) [#/Vol] 10*3/uL Normal <0.01 [facility] Comment on above: Order Comment: Speci men Type: BLOOD SPECIMENOrdering Facility: [facility] Address: [address] [address] Performed By: #### 5 7021-8 ####[facility] LABCLIA [id number] [place] [address] Nucleated RBC/100 WBC (Bld) [Ratio] 0.0 /100 WBC Normal [facility] Comment on above: Order Comment: Speci men Type: BLOOD SPECIMENOrdering Facility: [facility] [place] Address: [address] [place] [address] Performed By: #### 5 7021-8 ####[facility] LABCLIA [id number] [place] [address] Platelet mean volume (Bld) [Entitic vol] 9.6 fL Normal 9.0-12.7 [facility] Comment on above: Order Comment: Speci men Type: BLOOD SPECIMENOrdering Facility: [facility] Address: [address] [address] Performed By: #### 5 7021-8 ####[facility] LABCLIA [id number] [place] [address] Platelets (Bld) [#/Vol] 258 10*3/uL Normal 150-400 [facility] Comment on above: Order Comment: Speci men Type: BLOOD SPECIMENOrdering Facility: [facility] Address: [address] [place] [address] Performed By: #### 5 7021-8 ####[facility] LABCLIA [id number] [place] [address] RBC (Bld) [#/Vol] 4.32 10*6/uL Normal 3.90-5.20 [facility] Comment on above: Order Comment: Speci men Type: BLOOD SPECIMENOrdering Facility: [facility] Address: [address] [place] [address] Performed By: #### 5 7021-8 ####[facility] LABCLIA [id number] [place] [address] WBC (Bld) [#/Vol] 10.21 10*3/uL Normal 3.70-11.00 [facility] Comment on above: Order Comment: Speci men Type: BLOOD SPECIMENOrdering Facility: [facility] Address: [address] [place] [address] Performed By: #### 5 7021-8 ####[facility] LABCLIA [id number] [place] [address] Calcium.ionized [Moles/Vol]o n 02-11-2023 Calcium.ionized (Bld) [Mass/Vol] 1.32 mmol/L High 1.08-1.30 [facility] Comment on above: Order Comment: Speci men Type: BLOOD SPECIMENOrdering Facility: [facility] Address: [address] [place] [address] Performed By: #### 1 995-0 ####[facility]CLIA [id number] [address] STATES OF [facility] Calcium.ionized adjusted to pH 7.4 (Bld) [Moles/Vol] 1.27 mmol/L Normal 1.08-1.30 [facility] Comment on above: Order Comment: Speci men Type: BLOOD SPECIMENOrdering Facility: [facility] Address: [address] [place] [address] Performed By: #### 1 995-0 ####[facility]CLIA [id number] [place] [address] [place] Comprehensive metabolic 2000 panelon 02-11-2023 Albumin [Mass/Vol] 4.0 g/dL Normal 3.9-4.9 [facility] Comment on above: Order Comment: Speci men Type: BLOOD SPECIMENOrdering Facility: [facility] Address: [address] [place] [address] Performed By: #### 2 4323-8, 2532-0, 2777-1, 3084-1 ####[facility] LABCLIA [id number] [place] [address] ALP [Catalytic activity/Vol] 75 U/L Normal 34-123 [facility] Comment on above: Order Comment: Speci men Type: BLOOD SPECIMENOrdering Facility: [facility] Address: [address] [place] [address] Performed By: #### 2 4323-8, 2532-0, 2777-1, 3084-1 ####[facility] LABIA [id number] [place] [address] ALT [Catalytic activity/Vol] 21 U/L Normal 7-38 [facility] Comment on above: Order Comment: Speci men Type: BLOOD SPECIMENOrdering Facility: [facility] Address: [address] [place] [address] Performed By: #### 2 4323-8, 2532-0, 2777-1, 3084-1 ####[facility] LABIA [id number] [place] [address] Anion gap [Moles/Vol] 11 mmol/L Normal 9-18 [facility] Comment on above: Order Comment: Speci men Type: BLOOD SPECIMENOrdering Facility: [facility] Address: [address] [place] [address] Performed By: #### 2 4323-8, 2532-0, 2777-1, 3084-1 ####[facility] LABIA [id number] [place] [address] AST [Catalytic activity/Vol] 11 U/L Low 13-35 [facility] Comment on above: Order Comment: Speci men Type: BLOOD SPECIMENOrdering Facility: [facility] Address: [address] [place] [address] Performed By: #### 2 4323-8, 2532-0, 7-1, 3084-1 ####[facility] LABCL[facility] [id number] [place] [address] Bilirubin [Mass/Vol] mg/dL Low 0.2-1.3 [facility] Comment on above: Order Comment: Speci men Type: BLOOD SPECIMENOrdering Facility: [facility] Address: [address] [place] [address] Performed By: #### 2 4323-8, 2-0, 2776-1, 3083-1 ####[facility] LABIA [id number] [place] [address] Calcium [Mass/Vol] 9.7 mg/dL Normal 8.5-10.2 [facility] Comment on above: Order Comment: Speci men Type: BLOOD SPECIMENOrdering Facility: [facility] Address: [address] [place] [address] Performed By: #### 2 4323-8, 2-0, 2776-1, 3083-1 ####[facility] LABIA [id number] [place] [address] Chloride [Moles/Vol] 107 mmol/L High 97-105 [facility] Comment on above: Order Comment: Speci men Type: BLOOD SPECIMENOrdering Facility: [facility] Address: [address] [place] [address] Performed By: #### 2 4323-8, 2-0, 2776-1, 308-1 ####[facility] LABCLIA [id number] [place] [address] CO2 [Moles/Vol] 23 mmol/L Normal 22-30 [facility] Comment on above: Order Comment: Speci men Type: BLOOD SPECIMENOrdering Facility: [facility] Address: [address] Performed By: #### 2 4323-8, 2532-0, 2776-1, 3083- ####[facility] LABCLIA [id number] [place] [address] Creatinine [Mass/Vol] 0.76 mg/dL Normal 0.58-0.96 [facility] Comment on above: Order Comment: Speci men Type: BLOOD SPECIMENOrdering Facility: [facility] Address: [address] [address] Performed By: #### 2 4323-8, 2532-0, 2776-, 3083- ####[facility] LABCLIA [id number] [place] [address] Creatinine and Glomerular filtration rate.predicted panel (S/P/Bld) 100 mL/min/1.73m??? Normal >=60 [facility] Comment on above: Order Comment: Speci men Type: BLOOD SPECIMENOrdering Facility: [facility] Address: [address] [address] Result Comment: Erin mated Glomerular Filtration Rate [...] GFR. Performed By: #### 2 4323-8, 2532-0, 2776-1, 3083- ####[facility] LABCLIA [id number] [place] [address] Glucose [Mass/Vol] 164 mg/dL High 74-99 [facility] Comment on above: Order Comment: Speci men Type: BLOOD SPECIMENOrdering Facility: [facility] Address: [address] Result Comment: The [place] [employer] (ADA) provides guidance for cutoff [...] Standards of Medical Care in Diabetes 2016, [place] [employer]. Diabetes Care. 2016.39(Suppl 1). Performed By: #### 2 4323-8, 2532-0, 2776-, 3083- ####[facility] LABCLIA [id number] [place] [address] Potassium [Moles/Vol] 4.0 mmol/L Normal 3.7-5.1 [facility] Comment on above: Order Comment: Speci men Type: BLOOD SPECIMENOrdering Facility: [facility] Address: [address] [id number] Performed By: #### 2 4323-8, 253-0, 2776-05, 3083-05 ####[facility] LABCLIA [id number] [place] [address] Protein [Mass/Vol] 6.5 g/dL Normal 6.3-8.0 [facility] Comment on above: Order Comment: Speci men Type: BLOOD SPECIMENOrdering Facility: [facility] Address: [address] [place] [address] Performed By: #### 2 4323-8, 253-0, 2776-, 3083-05 ####[facility] LABCLIA [id number] [place] [address] Sodium [Moles/Vol] 141 mmol/L Normal 136-144 [facility] Comment on above: Order Comment: Speci men Type: BLOOD SPECIMENOrdering Facility: [facility] Address: [address] [id number] Performed By: #### 2 4323-8, 2532-0, 2777-1, 3084-1 ####[facility] LABCLIA [id number] [place] [address] Urea nitrogen [Mass/Vol] 15 mg/dL Normal 7-21 [facility] Comment on above: Order Comment: Speci men Type: BLOOD SPECIMENOrdering Facility: [facility] Address: [address] [place] [address] Performed By: #### 2 4323-8, 2532-0, 2777-1, 3084-1 ####[facility] LABCLIA [id number] [place] [address] Ferritin SerPl-mCncon 2022 Ferritin [Mass/Vol] 34.2 ng/mL Normal 14.7-205.1 [facility] Comment on above: Order Comment: Speci men Type: BLOOD SPECIMENOrdering Facility: [facility] Address: [address] [place] [address] Performed By: #### 1 952-1, 48990-0, 2276-4 ####[facility]CLIA [id number] [facility] [id number] [id number] [place] Folate SerPl-mCncon 02-12-20 23 Folate [Mass/Vol] ng/mL Normal >4.7 [facility] Comment on above: Order Comment: Speci men Type: BLOOD SPECIMENOrdering Facility: [facility] Address: [address] [place] [address] Result Comment: A re sult of > 20 ng/mL is not necessarily indicative of a pathologic or treatable condition: it reflects a limitation of the test methodology.Assay reference range: 4.8 to 24.2 ng/mL. Suitable for detection of folate deficiency.Reference:Folate III (Folate III) [package insert V 1.0 [place]]. [facility], [place], [place]: March 2015. Performed By: #### 2 885-2, 2132-9, 2284-8 ####[facility] LABCLIA [id number] [address] IMMUNOFIXATION SCREEN, SERUM on 02-11-2023 MPA RESULT No M protein is identified. Normal No M protein is identified. [facility] Comment on above: Order Comment: Speci men Type: BLOOD SPECIMENOrdering Facility: [facility] Address: [address] [place] [address] Performed By: #### I FESC ####[facility] LABIA [id number] [address] STAFF REVIEW (MPA) Reviewed by Daphne Pillai M.D. Normal [facility] Comment on above: Order Comment: Speci men Type: BLOOD SPECIMENOrdering Facility: [facility] Address: [address] [place] [address] Performed By: #### I FES ####[facility] LABIA [id number] [place] [address] [place] IMMUNOGLOBULINS GAMon 2022 IgA [Mass/Vol] 178 mg/dL Normal 70-400 [facility] Comment on above: Order Comment: Speci men Type: BLOOD SPECIMENOrdering Facility: [facility] Address: [address] [place] [address] Performed By: #### S ERIMM ####[facility] LABCLIA [id number] [place] [address] [place] IgG [Mass/Vol] 534 mg/dL Low 700-1600 [facility] Comment on above: Order Comment: Speci men Type: BLOOD SPECIMENOrdering Facility: [facility] Address: [address] [address] Performed By: #### S ERIMM ####[facility] LABIA [id number] [place] [address] [place] IgM [Mass/Vol] 453 mg/dL High 40-230 [facility] Comment on above: Order Comment: Speci men Type: BLOOD SPECIMENOrdering Facility: [facility] Address: [address] [place] [address] Performed By: #### S ERIMM ####[facility] LABCLIA [id number] [place] [address] [place] Iron and Iron binding capaci ty panelon 02-11-2023 Iron [Mass/Vol] 55 ug/dL Normal 41-186 [facility] Comment on above: Order Comment: Speci men Type: BLOOD SPECIMENOrdering Facility: [facility] Address: [address] [place] [address] Performed By: #### 1 952-1, 48343-4, 6-4 ####[facility] LABCLIA [id number] [address] [facility] Iron binding capacity [Mass/Vol] 339 ug/dL Normal 232-386 [facility] Comment on above: Order Comment: Speci men Type: BLOOD SPECIMENOrdering Facility: [facility] Address: [address] [place], [place] [address] Performed By: #### 1 952-1, 51948-2, 6-4 ####[facility] LABCLIA [id number] [place] [address] [place] Iron/TIBC [Molar ratio] 16.2 % Normal 15.0-57.0 [facility] Comment on above: Order Comment: Speci men Type: BLOOD SPECIMENOrdering Facility: [facility] Address: [address] [place], [place] [address] Performed By: #### 1 952-1, 52884-4, 6-4 ####[facility] LABCLIA [id number] [place] [address] [place] KAPPA/FARMER,FREE,SERon 2022 Immunoglobulin light chains.kappa.free (S) [Mass/Vol] 13.1 mg/L Normal 3.3-19.4 [facility] Comment on above: Order Comment: Speci men Type: BLOOD SPECIMENOrdering Facility: [facility] Address: [address] [place] [address] Result Comment: Rare ly, increased serum free light chains levels may not be detected or accurately quantified due to prozone phenomenon or in high viscosity samples using this immunoturbidimetric assay. Correlation with other laboratory results and clinical findings is recommended.The [place] Free Light Chain was performed using the Binding Site Optilite immunoturbidimetric method. Result obtained with different assay methods or kits cannot be used interchangeably. Performed By: #### K LFRS ####[facility]CLIA [id number] [place] [address] [place] Immunoglobulin light chains.kappa/Immunogl obulin light chains.lambda (S) [Mass ratio] 1.22 Normal 0.26-1.65 [facility] Comment on above: Order Comment: Speci men Type: BLOOD SPECIMENOrdering Facility: [facility] Address: [address] [place] [address] Performed By: #### K LFRS ####[facility]CLIA [id number] [place] [address] [place] Immunoglobulin light chains.lambda.free [Mass/Vol] 10.7 mg/L Normal 5.7-26.3 [facility] Comment on above: Order Comment: Speci men Type: BLOOD SPECIMENOrdering Facility: [facility] Address: [address] [place] [address] Result Comment: Rare ly, increased serum free [...] interchangeably. Performed By: #### K LFRS ####[facility] LABCLIA [id number] [place] [address] [place] LDH SerPl-cCncon 02-11-2023 LDH [Catalytic activity/Vol] 190 U/L Normal 135-214 [facility] Comment on above: Order Comment: Speci men Type: BLOOD SPECIMENOrdering Facility: [facility] Address: [address] [place] [address] Result Comment: Hemo lysis present. The origin [...] #### 2 4323-8, 2532-0, 2777-1, 3084-1 ####[facility] LABCLIA [id number] [place] [address] PROTEIN ELECTROPHORESIS SERU M (P)on 02-11-2023 Albumin [Mass/Vol] 3.61 g/dL Normal 3.43-5.41 [facility] Comment on above: Order Comment: Speci men Type: BLOOD SPECIMENOrdering Facility: [facility] Address: [address] [place] [address] Performed By: #### L [id number] ####[facility] LABCLIA [id number] [place] [address] [place] Alpha 1 globulin Elph [Mass/Vol] 0.31 g/dL Normal 0.18-0.43 [facility] Comment on above: Order Comment: Speci men Type: BLOOD SPECIMENOrdering Facility: [facility] Address: [address] [place] [address] Performed By: #### L [id number] ####[facility]CLIA [id number] [place] [address] [place] Alpha 2 globulin Elph [Mass/Vol] 0.76 g/dL Normal 0.42-0.98 [facility] Comment on above: Order Comment: Speci men Type: BLOOD SPECIMENOrdering Facility: [facility] Address: [address] [place] [address] Performed By: #### L [id number] ####[facility] LABIA [id number] [place] [address] [place] Beta globulin Elph [Mass/Vol] 0.85 g/dL Normal 0.61-1.17 [facility] Comment on above: Order Comment: Speci men Type: BLOOD SPECIMENOrdering Facility: [facility] Address: [address] [place] [address] Performed By: #### L [id number] ####[facility] [id number] [address] [place] Gamma globulin Elph [Mass/Vol] 0.66 g/dL Normal 0.53-1.51 [facility] Comment on above: Order Comment: Speci men Type: BLOOD SPECIMENOrdering Facility: [facility] Address: [address] [place] [address] Performed By: #### L [id number] ####[facility] [id number] [address] [place] M-PROTEIN LOCATION Normal [facility] Comment on above: Order Comment: Speci men Type: BLOOD SPECIMENOrdering Facility: [facility] Address: [address] [place], [place] [address] Result Comment: Not Applicable. Performed By: #### L [id number] ####[facility] [id number] [place] [address] [place] Protein Fractions [Interp] No definitive M protein is identified on protein electrophoresis. Normal No definitive M protein is identified on protein electrophores is. [facility] Comment on above: Order Comment: Speci men Type: BLOOD SPECIMENOrdering Facility: [facility] Address: [address] [address] Performed By: #### L [id number] ####[facility]CLIA [id number] [place] [address] [place] Protein.monoclonal Elph [Mass/Vol] 0.00 g/dL Normal <=0.00 [facility] Comment on above: Order Comment: Speci men Type: BLOOD SPECIMENOrdering Facility: [facility] Address: [address] [address] Performed By: #### L [id number] ####[facility] LABIA [id number] [address] OF [place] SPE STAFF REVIEW Reviewed by Daphne Pillai M.D. [facility] Comment on above: Order Comment: Speci men Type: BLOOD SPECIMENOrdering Facility: [facility] Address: [address] [place] [address] Performed By: #### L [id number] ####[facility]CL[facility] [id number] [place] [address] [place] Phosphate SerPl-mCncon 02-11 Phosphate [Mass/Vol] 3.4 mg/dL Normal 2.7-4.8 [facility] Comment on above: Order Comment: Speci men Type: BLOOD SPECIMENOrdering Facility: [facility] Address: [address] [address] Performed By: #### 2 4323-8, 2532-0, 2777-1, 3084-1 ####[facility] LABCL[facility] [id number] [place] [id number] Prot SerPl-mCncon 02-11-2023 Protein [Mass/Vol] 6.2 g/dL Low 6.3-8.0 [facility] Comment on above: Order Comment: Speci men Type: BLOOD SPECIMENOrdering Facility: [facility] Address: [address] [place] [address] Performed By: #### 2 885-2, 2132-01, 2283-12 ####[facility]CLIA [id number] [place] [address] [place] Urate [facility] 3 Urate [Mass/Vol] 4.3 mg/dL Normal 2.5-6.6 [facility] Comment on above: Order Comment: Speci men Type: BLOOD SPECIMENOrdering Facility: [facility] Address: [address] [id number] Performed By: #### 2 4323-8, 2532-0, 2777-1, 3084-1 ####[facility] LABCLIA [id number] [place] [address] Vit B12 [facility] 023 Cobalamin (Vitamin B12) [Mass/Vol] 598 pg/mL Normal 232-1245 [facility] Comment on above: Order Comment: Speci men Type: BLOOD SPECIMENOrdering Facility: [facility] Address: [address] [place] [address] Performed By: #### 2 885-2, 2132-01, 2283-12 ####[facility]CLIA [id number] [place] [address] [place] CNPNon 02-04-2023 CNPN Normal [facility] CNPNon 01-24-2023 CNPN Normal [facility] 25(OH)D3 [facility] 2022 25-hydroxyvitamin D3 [Mass/Vol] 25.1 ng/mL Low 31.0-80.0 [facility] Comment on above: Order Comment: Speci men Type: BLOOD SPECIMENOrdering Facility: [facility] Address: [address] [place] [address] Result Comment: Clas sification of 25 [place] Vitamin D status:Deficiency/Insufficiency: < or = 30 ng/ml.Sufficiency/Optimal Levels: 31-80 ng/mLToxicity: > 100 ng/mL.Test performed by chemiluminescent immunoassay. Performed By: #### 1 989-3 ####[facility]CL[facility] [id number] [facility] [id number] OF [facility] CBC panel Auto (Bld)on 01-22 Erythrocyte distribution width (RBC) [Ratio] 14.8 % Normal 11.5-15.0 [facility] Comment on above: Order Comment: Speci men Type: BLOOD SPECIMENOrdering Facility: [facility] Address: [address] [address] Performed By: #### 5 8410-2 ####[facility] LABCLIA [id number] [place] [address] Hematocrit (Bld) [Volume fraction] 40.9 % Normal 36.0-46.0 [facility] Comment on above: Order Comment: Speci men Type: BLOOD SPECIMENOrdering Facility: [facility] Address: [address] [address] Performed By: #### 5 8410-2 ####[facility] LABIA [id number] [place] [address] Hemoglobin (Bld) [Mass/Vol] 13.4 g/dL Normal 11.5-15.5 [facility] Comment on above: Order Comment: Speci men Type: BLOOD SPECIMENOrdering Facility: [facility] Address: [address] [address] Performed By: #### 5 8410-2 ####[facility] LABCLIA [id number] [place] [address] MCH (RBC) [Entitic mass] 30.1 pg Normal 26.0-34.0 [facility] Comment on above: Order Comment: Speci men Type: BLOOD SPECIMENOrdering Facility: [facility] Address: [address] [address] Performed By: #### 5 8410-2 ####[facility] LABCL[facility] [id number] [place] [address] MCHC (RBC) [Mass/Vol] 32.8 g/dL Normal 30.5-36.0 [facility] Comment on above: Order Comment: Speci men Type: BLOOD SPECIMENOrdering Facility: [facility] Address: [address] [place] [address] Performed By: #### 5 8410-2 ####[facility] LABIA [id number] [place] [address] MCV (RBC) [Entitic vol] 91.9 fL Normal 80.0-100.0 [facility] Comment on above: Order Comment: Speci men Type: BLOOD SPECIMENOrdering Facility: [facility] Address: [address] [place] [address] Performed By: #### 5 8410-2 ####[facility] LABIA [id number] [place] [address] Nucleated RBC (Bld) [#/Vol] 10*3/uL Normal <0.01 [facility] Comment on above: Order Comment: Speci men Type: BLOOD SPECIMENOrdering Facility: [facility] Address: [address] [place] [address] Performed By: #### 5 8410-2 ####[facility] LABIA [id number] [place] [address] Platelet mean volume (Bld) [Entitic vol] 9.6 fL Normal 9.0-12.7 [facility] Comment on above: Order Comment: Speci men Type: BLOOD SPECIMENOrdering Facility: [facility] Address: [address] [place] [address] Performed By: #### 5 8410-2 ####[facility] LABIA [id number] [place] [address] Platelets (Bld) [#/Vol] 285 10*3/uL Normal 150-400 [facility] Comment on above: Order Comment: Speci men Type: BLOOD SPECIMENOrdering Facility: [facility] Address: [address] [place] [address] Performed By: #### 5 8410-2 ####[facility] LABIA [id number] [place] [address] RBC (Bld) [#/Vol] 4.45 10*6/uL Normal 3.90-5.20 [facility] Comment on above: Order Comment: Speci men Type: BLOOD SPECIMENOrdering Facility: [facility] Address: [address] [place] [address] Performed By: #### 5 8410-2 ####[facility] LABIA [id number] [place] [address] WBC (Bld) [#/Vol] 13.80 10*3/uL High 3.70-11.00 [facility] Comment on above: Order Comment: Speci men Type: BLOOD SPECIMENOrdering Facility: [facility] Address: [address] [place] [address] Performed By: #### 5 8410-2 ####[facility] LABIA [id number] [place] [address] CNNURSEon 01-22-2023 CNNURSE Normal [facility] CRP SerPl-mCncon 01-22-2023 CRP [Mass/Vol] mg/L Normal <0.9 [facility] Comment on above: Order Comment: Speci men Type: BLOOD SPECIMENOrdering Facility: [facility] Address: [address] [place] [address] Performed By: #### 1 988-5 ####[facility] LABCLIA [id number] [place] [address] [place] Comprehensive metabolic 2000 panelon 01-22-2023 Albumin [Mass/Vol] 4.1 g/dL Normal 3.9-4.9 [facility] Comment on above: Order Comment: Speci men Type: BLOOD SPECIMENOrdering Facility: [facility] Address: [address] [address] Performed By: #### 2 4323-8 ####[facility] LABCLIA [id number] [place] [address] ALP [Catalytic activity/Vol] 62 U/L Normal 34-123 [facility] Comment on above: Order Comment: Speci men Type: BLOOD SPECIMENOrdering Facility: [facility] Address: [address] [address] Performed By: #### 2 4323-8 ####[facility] LABCLIA [id number] [place] [address] ALT [Catalytic activity/Vol] 27 U/L Normal 7-38 [facility] Comment on above: Order Comment: Speci men Type: BLOOD SPECIMENOrdering Facility: [facility] Address: [address] [address] Performed By: #### 2 4323-8 ####[facility] LABCLIA [id number] [place] [address] Anion gap [Moles/Vol] 10 mmol/L Normal 9-18 [facility] Comment on above: Order Comment: Speci men Type: BLOOD SPECIMENOrdering Facility: [facility] Address: [address] [address] Performed By: #### 2 4323-8 ####[facility] LABCLIA [id number] [place] [address] AST [Catalytic activity/Vol] 12 U/L Low 13-35 [facility] Comment on above: Order Comment: Speci men Type: BLOOD SPECIMENOrdering Facility: [facility] Address: [address] [address] Performed By: #### 2 4323-8 ####[facility] LABCLIA [id number] [place] [address] Bilirubin [Mass/Vol] 0.2 mg/dL Normal 0.2-1.3 [facility] Comment on above: Order Comment: Speci men Type: BLOOD SPECIMENOrdering Facility: [facility] Address: [address] [address] Performed By: #### 2 4323-8 ####[facility] LABCLIA [id number] [place] [address] Calcium [Mass/Vol] 9.4 mg/dL Normal 8.5-10.2 [facility] Comment on above: Order Comment: Speci men Type: BLOOD SPECIMENOrdering Facility: [facility] Address: [address] [place] [address] Performed By: #### 2 4323-8 ####[facility] LABCLIA [id number] [place] [address] Chloride [Moles/Vol] 107 mmol/L High 97-105 [facility] Comment on above: Order Comment: Speci men Type: BLOOD SPECIMENOrdering Facility: [facility] Address: [address] [address] Performed By: #### 2 4323-8 ####[facility] LABCLIA [id number] [place] [address] CO2 [Moles/Vol] 24 mmol/L Normal 22-30 [facility] Comment on above: Order Comment: Speci men Type: BLOOD SPECIMENOrdering Facility: [facility] Address: [address] [place] [address] Performed By: #### 2 4323-8 ####[facility] LABCLIA [id number] [place] [address] Creatinine [Mass/Vol] 0.71 mg/dL Normal 0.58-0.96 [facility] Comment on above: Order Comment: Speci men Type: BLOOD SPECIMENOrdering Facility: [facility] Address: [address] [place] [address] Performed By: #### 2 4323-8 ####[facility] LABCLIA [id number] [place] [address] Creatinine and Glomerular filtration rate.predicted panel (S/P/Bld) 109 mL/min/1.73m??? Normal >=60 [facility] Comment on above: Order Comment: Semaj cortés Type: BLOOD SPECIMENOrdering Facility: [facility] Address: [address] [place] [address] Result Comment: Erin mated Glomerular Filtration Rate [...] GFR. Performed By: #### 2 4323-8 ####[facility]CLIA [id number] [place] [address] Glucose [Mass/Vol] 60 mg/dL Low 74-99 [facility] Comment on above: Order Comment: Speci moo Type: BLOOD SPECIMENOrdering Facility: [facility] Address: [address] [place] [address] Result Comment: The [place] [employer] (ADA) provides guidance for cutoff [...] Standards of Medical Care in Diabetes 2016, [place] [employer]. Diabetes Care. 2016.39(Suppl 1). Performed By: #### 2 4323-8 ####[facility] LABCLIA [id number] [place] [address] Potassium [Moles/Vol] 4.0 mmol/L Normal 3.7-5.1 [facility] Comment on above: Order Comment: Speci men Type: BLOOD SPECIMENOrdering Facility: [facility] Address: [address] [place] [address] Performed By: #### 2 4323-8 ####[facility] LABCLIA [id number] [place] [address] Protein [Mass/Vol] 6.7 g/dL Normal 6.3-8.0 [facility] Comment on above: Order Comment: Speci men Type: BLOOD SPECIMENOrdering Facility: [facility] Address: [address] [place] [address] Performed By: #### 2 4323-8 ####[facility] LABCLIA [id number] [place] [address] Sodium [Moles/Vol] 141 mmol/L Normal 136-144 [facility] Comment on above: Order Comment: Speci men Type: BLOOD SPECIMENOrdering Facility: [facility] Address: [address] [place] [address] Performed By: #### 2 4323-8 ####[facility] LABCLIA [id number] [place] [address] Urea nitrogen [Mass/Vol] 13 mg/dL Normal 7-21 [facility] Comment on above: Order Comment: Speci men Type: BLOOD SPECIMENOrdering Facility: [facility] Address: [address] [address] Performed By: #### 2 4323-8 ####[facility] LABCLIA [id number] [place] [address] ESR Westergren method (Bld) [Velocity]on 01-22-2023 ESR (Bld) [Velocity] 20 mm/h Normal 0-20 [facility] Comment on above: Order Comment: Speci men Type: BLOOD SPECIMENOrdering Facility: [facility] Address: [address] [place] [address] Performed By: #### 4 537-7 ####[facility] LABCLIA [id number] [facility] [id number] [place] CNNURSEon 12-29-2022 CNNURSE Normal [facility] CNPNon 12-18-2022 CNPN Normal [facility] CNPNon 12-16-2022 CNPN Normal [facility] CBC W Auto Differential pane l (Bld)on 12-08-2022 Basophils (Bld) [#/Vol] 0.06 10*3/uL Normal <0.11 [facility] Comment on above: Order Comment: Speci men Type: BLOOD SPECIMENOrdering Facility: [facility] Address: [address] [address] Performed By: #### 5 7021-8 ####[facility] LABCLIA [id number] [place] [address] Basophils/100 WBC (Bld) 0.4 % Normal [facility] Comment on above: Order Comment: Speci men Type: BLOOD SPECIMENOrdering Facility: [facility] Address: [address] [address] Performed By: #### 5 7021-8 ####[facility] LABCLIA [id number] [place] [address] Differential cell count method Nom (Bld) Auto Normal [facility] Comment on above: Order Comment: Speci men Type: BLOOD SPECIMENOrdering Facility: [facility] Address: [address] [address] Performed By: #### 5 7021-8 ####[facility] LABCLIA [id number] [place] [address] Eosinophils (Bld) [#/Vol] 0.11 10*3/uL Normal <0.46 [facility] Comment on above: Order Comment: Speci men Type: BLOOD SPECIMENOrdering Facility: [facility] Address: [address] [address] Performed By: #### 5 7021-8 ####[facility] LABCLIA [id number] [place] [address] Eosinophils/100 WBC (Bld) 0.8 % Normal [facility] Comment on above: Order Comment: Speci men Type: BLOOD SPECIMENOrdering Facility: [facility] Address: [address] [place] [address] Performed By: #### 5 7021-8 ####[facility] LABCLIA [id number] [place] [address] Erythrocyte distribution width (RBC) [Ratio] 14.6 % Normal 11.5-15.0 [facility] Comment on above: Order Comment: Speci men Type: BLOOD SPECIMENOrdering Facility: [facility] Address: [address] [place] [address] Performed By: #### 5 7021-8 ####[facility] LABCLIA [id number] [place] [address] Hematocrit (Bld) [Volume fraction] 42.0 % Normal 36.0-46.0 [facility] Comment on above: Order Comment: Speci men Type: BLOOD SPECIMENOrdering Facility: [facility] Address: [address] [place] [address] Performed By: #### 5 7021-8 ####[facility] LABCLIA [id number] [place] [address] Hemoglobin (Bld) [Mass/Vol] 13.3 g/dL Normal 11.5-15.5 [facility] Comment on above: Order Comment: Speci men Type: BLOOD SPECIMENOrdering Facility: [facility] Address: [address] [place] [address] Performed By: #### 5 7021-8 ####[facility] LABCLIA [id number] [place] [address] Immature granulocytes (Bld) [#/Vol] 0.11 10*3/uL High <0.10 [facility] Comment on above: Order Comment: Speci men Type: BLOOD SPECIMENOrdering Facility: [facility] Address: [address] [place] [address] Performed By: #### 5 7021-8 ####[facility] LABCLIA [id number] [place] [address] Immature granulocytes/100 WBC (Bld) 0.8 % Normal [facility] Comment on above: Order Comment: Speci men Type: BLOOD SPECIMENOrdering Facility: [facility] Address: [address] [place] [address] Performed By: #### 5 7021-8 ####[facility] LABCLIA [id number] [place] [address] Lymphocytes (Bld) [#/Vol] 3.75 10*3/uL Normal 1.00-4.00 [facility] Comment on above: Order Comment: Speci men Type: BLOOD SPECIMENOrdering Facility: [facility] Address: [address] [place] [address] Performed By: #### 5 7021-8 ####[facility] LABIA [id number] [place] [address] Lymphocytes/100 WBC (Bld) 27.4 % Normal [facility] Comment on above: Order Comment: Speci men Type: BLOOD SPECIMENOrdering Facility: [facility] Address: [address] [place] [address] Performed By: #### 5 7021-8 ####[facility] LABCLIA [id number] [place] [address] MCH (RBC) [Entitic mass] 29.8 pg Normal 26.0-34.0 [facility] Comment on above: Order Comment: Speci men Type: BLOOD SPECIMENOrdering Facility: [facility] Address: [address] [place] [address] Performed By: #### 5 7021-8 ####[facility] LABCLIA [id number] [place] [address] MCHC (RBC) [Mass/Vol] 31.7 g/dL Normal 30.5-36.0 [facility] Comment on above: Order Comment: Speci men Type: BLOOD SPECIMENOrdering Facility: [facility] Address: [address] [place] [address] Performed By: #### 5 7021-8 ####[facility] LABIA [id number] [place] [address] MCV (RBC) [Entitic vol] 94.0 fL Normal 80.0-100.0 [facility] Comment on above: Order Comment: Speci men Type: BLOOD SPECIMENOrdering Facility: [facility] Address: [address] [place] [address] Performed By: #### 5 7021-8 ####[facility] LABIA [id number] [place] [address] Monocytes (Bld) [#/Vol] 1.07 10*3/uL High <0.87 [facility] Comment on above: Order Comment: Speci men Type: BLOOD SPECIMENOrdering Facility: [facility] Address: [address] [place] [address] Performed By: #### 5 7021-8 ####[facility] LABIA [id number] [place] [address] Monocytes/100 WBC (Bld) 7.8 % Normal [facility] Comment on above: Order Comment: Speci men Type: BLOOD SPECIMENOrdering Facility: [facility] Address: [address] [place] [address] Performed By: #### 5 7021-8 ####[facility] LABIA [id number] [place] [address] Neutrophils (Bld) [#/Vol] 8.57 10*3/uL High 1.45-7.50 [facility] Comment on above: Order Comment: Speci men Type: BLOOD SPECIMENOrdering Facility: [facility] Address: [address] [address] Performed By: #### 5 7021-8 ####[facility] LABCLIA [id number] [place] [address] Neutrophils/100 WBC (Bld) 62.8 % Normal [facility] Comment on above: Order Comment: Speci men Type: BLOOD SPECIMENOrdering Facility: [facility] Address: [address] [place] [address] Performed By: #### 5 7021-8 ####[facility] LABCLIA [id number] [place] [address] Nucleated RBC (Bld) [#/Vol] 10*3/uL Normal <0.01 [facility] Comment on above: Order Comment: Speci men Type: BLOOD SPECIMENOrdering Facility: [facility] Address: [address] [place] [address] Performed By: #### 5 7021-8 ####[facility] LABCLIA [id number] [place] [address] Nucleated RBC/100 WBC (Bld) [Ratio] 0.0 /100 WBC Normal [facility] Comment on above: Order Comment: Speci men Type: BLOOD SPECIMENOrdering Facility: [facility] Address: [address] [place] [address] Performed By: #### 5 7021-8 ####[facility] LABCLIA [id number] [place] [address] Platelet mean volume (Bld) [Entitic vol] 9.6 fL Normal 9.0-12.7 [facility] Comment on above: Order Comment: Speci men Type: BLOOD SPECIMENOrdering Facility: [facility] Address: [address] [place] [address] Performed By: #### 5 7021-8 ####[facility] LABCLIA [id number] [place] [address] Platelets (Bld) [#/Vol] 301 10*3/uL Normal 150-400 [facility] Comment on above: Order Comment: Speci men Type: BLOOD SPECIMENOrdering Facility: [facility] Address: [address] [place] [address] Performed By: #### 5 7021-8 ####[facility] LABCLIA [id number] [place] [address] RBC (Bld) [#/Vol] 4.47 10*6/uL Normal 3.90-5.20 [facility] Comment on above: Order Comment: Speci men Type: BLOOD SPECIMENOrdering Facility: [facility] Address: [address] [place] [address] Performed By: #### 5 7021-8 ####[facility] LABIA [id number] [place] [address] WBC (Bld) [#/Vol] 13.67 10*3/uL High 3.70-11.00 [facility] Comment on above: Order Comment: Speci men Type: BLOOD SPECIMENOrdering Facility: [facility] Address: [address] [place] [address] Performed By: #### 5 7021-8 ####[facility] LABCLIA [id number] [place] [address] CNPNon 12-08-2022 CNPN Normal [facility] Comprehensive metabolic 2000 panelon 12-08-2022 Albumin [Mass/Vol] 4.3 g/dL Normal 3.9-4.9 [facility] Comment on above: Order Comment: Speci men Type: BLOOD SPECIMENOrdering Facility: [facility] Address: [address] [place] [address] Performed By: #### 2 4323-8 ####[facility] LABCLIA [id number] [place] [address] ALP [Catalytic activity/Vol] 63 U/L Normal 34-123 [facility] Comment on above: Order Comment: Speci men Type: BLOOD SPECIMENOrdering Facility: [facility] Address: [address] [address] Performed By: #### 2 4323-8 ####[facility] LABCLIA [id number] [place] [address] ALT [Catalytic activity/Vol] 19 U/L Normal 7-38 [facility] Comment on above: Order Comment: Speci men Type: BLOOD SPECIMENOrdering Facility: [facility] Address: [address] [address] Performed By: #### 2 4323-8 ####[facility] LABCLIA [id number] [place] [address] Anion gap [Moles/Vol] 5 mmol/L Low 9-18 [facility] Comment on above: Order Comment: Speci men Type: BLOOD SPECIMENOrdering Facility: [facility] Address: [address] [address] Performed By: #### 2 4323-8 ####[facility] LABCLIA [id number] [place] [address] AST [Catalytic activity/Vol] 10 U/L Low 13-35 [facility] Comment on above: Order Comment: Speci men Type: BLOOD SPECIMENOrdering Facility: [facility] Address: [address] [address] Performed By: #### 2 4323-8 ####[facility] LABCLIA [id number] [place] [address] Bilirubin [Mass/Vol] 0.2 mg/dL Normal 0.2-1.3 [facility] Comment on above: Order Comment: Speci men Type: BLOOD SPECIMENOrdering Facility: [facility] Address: [address] [place] [address] Performed By: #### 2 4323-8 ####[facility] LABCLIA [id number] [place] [address] Calcium [Mass/Vol] 9.9 mg/dL Normal 8.5-10.2 [facility] Comment on above: Order Comment: Speci men Type: BLOOD SPECIMENOrdering Facility: [facility] Address: [address] [place] [address] Performed By: #### 2 4323-8 ####[facility] LABCLIA [id number] [place] [address] Chloride [Moles/Vol] 106 mmol/L High 97-105 [facility] Comment on above: Order Comment: Speci men Type: BLOOD SPECIMENOrdering Facility: [facility] Address: [address] [place] [address] Performed By: #### 2 4323-8 ####[facility] LABCLIA [id number] [place] [address] CO2 [Moles/Vol] 26 mmol/L Normal 22-30 [facility] Comment on above: Order Comment: Speci men Type: BLOOD SPECIMENOrdering Facility: [facility] Address: [address] [place] [address] Performed By: #### 2 4323-8 ####[facility] LABCLIA [id number] [place] [address] Creatinine [Mass/Vol] 0.80 mg/dL Normal 0.58-0.96 [facility] Comment on above: Order Comment: Speci men Type: BLOOD SPECIMENOrdering Facility: [facility] Address: [address] [place] [address] Performed By: #### 2 4323-8 ####[facility] LABCLIA [id number] [place] [address] ESTIMATED GLOMERULAR FILTRATION RATE 94 mL/min/1.73m??? Normal >=60 [facility] Comment on above: Order Comment: Speci men Type: BLOOD SPECIMENOrdering Facility: [facility] Address: [address] [place] [address] Result Comment: Erin mated Glomerular Filtration Rate [...] GFR. Performed By: #### 2 4323-8 ####[facility] LABCLIA [id number] [place] [address] Glucose [Mass/Vol] 91 mg/dL Normal 74-99 [facility] Comment on above: Order Comment: Speci men Type: BLOOD SPECIMENOrdering Facility: [facility] Address: [address] [place] [address] Result Comment: The [place] [employer] (ADA) provides guidance for cutoff [...] Standards of Medical Care in Diabetes 2016, [place] [employer]. Diabetes Care. 2016.39(Suppl 1). Performed By: #### 2 4323-8 ####[facility] LABCLIA [id number] [place] [address] Potassium [Moles/Vol] 3.9 mmol/L Normal 3.7-5.1 [facility] Comment on above: Order Comment: Speci men Type: BLOOD SPECIMENOrdering Facility: [facility] Address: [address] [place], [place] [address] Performed By: #### 2 4323-8 ####[facility] LABCLIA [id number] [place] [address] Protein [Mass/Vol] 7.1 g/dL Normal 6.3-8.0 [facility] Comment on above: Order Comment: Speci men Type: BLOOD SPECIMENOrdering Facility: [facility] Address: [address] [address] Performed By: #### 2 4323-8 ####[facility] LABCLIA [id number] [place] [address] Sodium [Moles/Vol] 137 mmol/L Normal 136-144 [facility] Comment on above: Order Comment: Speci men Type: BLOOD SPECIMENOrdering Facility: [facility] Address: [address] [place] [address] Performed By: #### 2 4323-8 ####[facility] LABCLIA [id number] [place] [address] Urea nitrogen [Mass/Vol] 20 mg/dL Normal 7-21 [facility] Comment on above: Order Comment: Speci men Type: BLOOD SPECIMENOrdering Facility: [facility] Address: [address] [address] Performed By: #### 2 4323-8 ####[facility] LABCLIA [id number] [place] [address] Ferritin SerPl-mCncon 2022 Ferritin [Mass/Vol] 26.6 ng/mL Normal 14.7-205.1 [facility] Comment on above: Order Comment: Speci men Type: BLOOD SPECIMENOrdering Facility: [facility] Address: [address] [address] Performed By: #### 5 0190-8, 2132-9, 2276-4, 2284-8 ####[facility] LABCLIA [id number] [address] [address] [address] [place] Folate SerPl-mCncon 12-09-19 23 Folate [Mass/Vol] 2.6 ng/mL Low >4.7 [facility] Comment on above: Order Comment: Speci men Type: BLOOD SPECIMENOrdering Facility: [facility] Address: [address] [place] [address] Performed By: #### 5 0190-8, 2132-01, 2275-08, 2283-12 ####[facility] LABCLIA [id number] [place] [address] [place] Iron and Iron binding capaci ty panelon 12-08-2022 Iron [Mass/Vol] 48 ug/dL Normal 41-186 [facility] Comment on above: Order Comment: Speci men Type: BLOOD SPECIMENOrdering Facility: [facility] Address: [address] [place] [address] Performed By: #### 5 0190-8, 2132-01, 2275-08, 2283-12 ####[facility] LABCLIA [id number] [place] [address] [place] Iron binding capacity [Mass/Vol] 382 ug/dL Normal 232-386 [facility] Comment on above: Order Comment: Speci men Type: BLOOD SPECIMENOrdering Facility: [facility] Address: [address] [place] [address] Performed By: #### 5 0190-8, 2132-01, 2275-08, 2283-12 ####[facility] LABCLIA [id number] [place] [address] [place] Iron/TIBC [Molar ratio] 12.6 % Low 15.0-57.0 [facility] Comment on above: Order Comment: Speci men Type: BLOOD SPECIMENOrdering Facility: [facility] Address: [address] [place] [address] Performed By: #### 5 0190-8, 2132-01, 2275-08, 2283-12 ####[facility] LABCLIA [id number] [place] [address] [place] Vit B12 SerPl-mCncon 023 Cobalamin (Vitamin B12) [Mass/Vol] 336 pg/mL Normal 232-1245 [facility] Comment on above: Order Comment: Speci men Type: BLOOD SPECIMENOrdering Facility: [facility] Address: [address] [facility] [address] [address] Performed By: #### 5 0190-8, 2132-9, 2276-4, 2284-8 ####[facility] LABCLIA [id number] [facility] [place] [place] [id number] [place] CNNURSEon 11-19-2022 CNNURSE Normal [facility] CNPNon 10-31-2022 CNPN Normal [facility] CBC AUTO DIFFon 09-24-2022 BASO # 0.1 103/ul Normal 0.0-0.1 [facility] Comment on above: Performed By: #### U AMIC #### [facility] [address] [address] [address] Manda York Basophils/100 WBC (Bld) 0.6 % Normal 0.2-2.0 [facility] Comment on above: Performed By: #### U AMIC #### [facility] [address] [address] [address] Manda York EO # 0.1 103/ul Normal 0.0-0.7 [facility] Comment on above: Performed By: #### U AMIC #### [facility] [address] [address] [address] Manda York Eosinophils/100 WBC (Bld) 0.6 % Critically low 0.9-7.0 [facility] Comment on above: Performed By: #### U AMIC #### [facility] [address] [address] [address] Manda York Erythrocyte distribution width (RBC) [Ratio] 14.6 % Normal 11.0-15.0 [facility] Comment on above: Performed By: #### U AMIC #### [facility] [address] [address] [address] Manda York Hematocrit (Bld) [Volume fraction] 43.4 % Normal 36.0-48.0 [facility] Comment on above: Performed By: #### U AMIC #### [facility] [address] [place] [address] Dr. Manda York Hemoglobin (Bld) [Mass/Vol] 13.7 g/dL Normal 12.0-16.0 [facility] Comment on above: Performed By: #### U AMIC #### [facility] [address] [address] [address] Manda York IG # 0.12 [id number]/ul Critically high 0.00-0.03 [facility] Comment on above: Performed By: #### U AMIC #### [facility] [address] [place] [address] Dr. Manda York IG % 0.8 % Critically high 0.0-0.5 [facility] Comment on above: Performed By: #### U AMIC #### [facility] [address] [address] [address] Manda York LYMPH # 2.6 103/ul Normal 1.2-3.8 [facility] Comment on above: Performed By: #### U AMIC #### [facility] [address] [place] [address] Dr. Manda York Lymphocytes/100 WBC (Bld) 18.3 % Critically low 20.5-60.0 [facility] Comment on above: Performed By: #### U AMIC #### [facility] [address] [address] [address] Manda York MANUAL DIFF REQ NO Normal [facility] Comment on above: Performed By: #### U AMIC #### [facility] [address] [address] [address] Manda York MCH (RBC) [Entitic mass] 29.0 pg Normal 26.7-34.0 [facility] Comment on above: Performed By: #### U AMIC #### [facility] [address] [place] [address] Dr. Manda York MCHC (RBC) [Mass/Vol] 31.6 g/dL Normal 29.9-35.2 [facility] Comment on above: Performed By: #### U AMIC #### [facility] [address] [place] [address] Dr. Manda York MCV (RBC) [Entitic vol] 91.8 fL Normal 81.0-99.0 [facility] Comment on above: Performed By: #### U AMIC #### [facility] [address] [place] [address] Dr. Manda York MONO # 0.7 103/ul Normal 0.3-0.8 [facility] Comment on above: Performed By: #### U AMIC #### [facility] [address] [place] [address] Dr. Manda York Monocytes/100 WBC (Bld) 5.1 % Normal 1.7-12.0 [facility] Comment on above: Performed By: #### U AMIC #### [facility] [address] [place] [address] Dr. Manda York NEUT # 10.6 103/ul Critically high 1.4-6.5 [facility] Comment on above: Performed By: #### U AMIC #### [facility] [address] [place] [address] Dr. Manda York Neutrophils/100 WBC (Bld) 74.6 % Normal 43.0-75.0 [facility] Comment on above: Performed By: #### U AMIC #### [facility] [address] [place] [address] Dr. Manda York Platelet mean volume (Bld) [Entitic vol] 9.4 fL Critically low 9.5-13.5 [facility] Comment on above: Performed By: #### U AMIC #### [facility] [address] [place] [address] Dr. Manda York PLT 307 103/ul Normal 150-450 [facility] Comment on above: Performed By: #### U AMIC #### [facility] [address] [place] [address] Dr. Manda York RBC 4.73 106/ul Normal 4.20-5.40 [facility] Comment on above: Performed By: #### U AMIC #### [facility] [address] [address] [address] Manda York WBC 14.2 103/ul Critically high 4.0-11.0 [facility] Comment on above: Performed By: #### U AMIC #### [facility] [address] [place] [address] Dr. Manda York FREE T4on 09-24-2022 Free T4 [Mass/Vol] 1.31 ng/dL Normal 0.76-1.46 [facility] Comment on above: Performed By: #### F T4 #### [facility] [address] [place] [address] Dr. Manda York GLYCOHEMOGLOBIN A1Con 2022 ADA RECOMMENDATION SEE BELOW Normal [facility] Comment on above: Result Comment: ADA RECOMMENDED LIMIT 4.0 - 6.0 ADA THERAPEUTIC TARGET < 7.0 ACTION SUGGESTED > 7.0 Performed By: #### A 1C #### [facility] [address] [place] [address] Dr. Manda York Glucose [Mass/Vol] 120 mg/dL Normal [facility] Comment on above: Performed By: #### A 1C #### [facility] [address] [place] [address] Dr. Manda York HbA1c (Bld) [Mass fraction] 5.8 % Normal 4.5-6.2 [facility] Comment on above: Performed By: #### A 1C #### [facility] [address] [place] [address] Dr. Manda York PREG QUANT HCGon 09-24-2022 HCG QUANT <1 Normal [facility] Comment on above: Performed By: #### F T4 #### [facility] [address] [place] [address] Dr. Manda York HCG RANGE SEE BELOW Normal [facility] Comment on above: Result Comment: 5-50 0.2-1 WEEK 50-500 1-2 WEEKS 100-5,000 2-3 WEEKS 500-10,000 3-4 WEEKS 1,000-50,000 4-5 WEEKS 10,000-100,000 5-6 WEEKS 15,000-200,000 6-8 WEEKS 10,000-100,000 2-3 MONTHS Performed By: #### F T4 #### [facility] [address] [place] [address] Dr. Manda York PROTIMEon 09-24-2022 INR Coag (PPP) [Relative time] {INR} Normal [facility] Comment on above: Performed By: #### F T4 #### [facility] [address] [place] [address] Dr. Manda York INR GUIDELINES SEE BELOW Normal [facility] Comment on above: Result Comment: SHERRY RED INR: 2.0 - 3.0 CONDITIONS NOT LISTED BELOW 2.5 - 3.5 FOR PROSTHETIC HEART VALVE REPLACEMENT 2.5 - 3.5 RECURRENT THROMBOSIS Performed By: #### F T4 #### [facility] [address] [place] [address] Dr. Manda York PT Coag (PPP) [Time] 9.6 s Normal 9.0-11.6 [facility] Comment on above: Performed By: #### F T4 #### [facility] [address] [place] [address] Dr. Manda York PTTon 09-24-2022 aPTT Coag (Bld) [Time] 28.2 s Normal 22.3-36.2 [facility] Comment on above: Performed By: #### F T4 #### [facility] [address] [place] [address] Dr. Manda York TSHon 09-24-2022 TSH 0.300 uIU/mL Critically low 0.358-3.740 [facility] Comment on above: Performed By: #### F T4 #### [facility] [address] [place] [address] Dr. Manda York US PELVIS TRANSVAGon 023 [...] by: AURORA SHAIKH Date: 2022-09-24 17:50 Normal [facility] PAP ACOG PANEL 2: 30 to 65on 09-18-2022 . . Normal [facility] Comment on above: Result Comment: Perf ormed at: WB Performed By: #### F T4 #### [facility] [address] [address] [address] Manda York Age Gdln ACOG Testing 30-65 Normal [facility] Comment on above: Performed By: #### F T4 #### [facility] [address] [address] [address] Manda York DIAGNOSIS: Comment Normal [facility] Comment on above: Result Comment: NEGA TIVE FOR INTRAEPITHELIAL LESION OR MALIGNANCY. Performed at: WB Performed By: #### F T4 #### [facility] [address] [address] [address] Manda York HPV Aptima Negative Normal Negative [facility] Comment on above: Result Comment: This nucleic acid amplification test detects fourteen high-risk HPV types (16,18,31,33,35,39,45,51,52,56,58,59,66,68) without differentiation. Performed at: =G Performed By: #### F T4 #### [facility] [address] [address] [address] Manda York HPV Genotype Reflex Comment Normal [facility] Comment on above: Result Comment: Crit eria not met, HPV Genotype not performed. Performed at: WB Performed By: #### F T4 #### [facility] [address] [place] [address] Dr. Manda York Methodology: Comment Normal [facility] Comment on above: Result Comment: This liquid based ThinPrep(R) pap test was screened with the use of an image guided system. Performed at: WB Performed By: #### F T4 #### [facility] [address] [place] [address] Dr. Manda York Note: Comment Normal [facility] Comment on above: Result Comment: The [...] WB Performed By: #### F T4 #### [facility] [address] [place] [address] Dr. Manda York Performed by: Comment Normal [facility] Comment on above: Result Comment: Lorena Peters, Rail Gang Supervisor (ASCP) Performed at: WB Performed By: #### F T4 #### [facility] [address] [place] [address] Dr. Manda York Specimen adequacy: Comment Normal [facility] Comment on above: Result Comment: Sati sfactory for evaluation. Endocervical and/or squamous metaplastic cells (endocervical component) are present. Performed at: WB Performed By: #### F T4 #### [facility] [address] [place] [address] Dr. Manda York MG MAMM SCREEN 3D MARK CADon 09-01-2022 MG MAMM SCREEN 3D MARK CAD Patient: JONES HALEY Exam Date: 09/01/2022 : 1980 Gender:F Ordering : DR MADELAINE FERRIS . Admission #: [id number] Family : Order #: [id number] CLICK HERE TO VIEW EXAM RADIOLOGY REPORT [...] stomach cancer at age 56. LOCATION: [facility] BREAST COMPOSITION: Scattered areas fibroglandular [...] Yusuf M.D. on 09/02/2022 at 12:32 Normal [facility] MRI KNEE RT WO CONon 04-01- [...] MADELAINE GOMEZ Date: 2022-04-01 08:24 Normal [facility] PNEUMOCOCCAL IGG ABS, 23 SER OTYPESon 03-21-2022 Pneumococcal Interpretation See Note [facility] S. pneumoniae 1 IgG (S) [Mass/Vol] 0.27 ug/mL [facility] S. pneumoniae 12 IgG (S) [Mass/Vol] 0.08 ug/mL [facility] S. pneumoniae 14 IgG (S) [Mass/Vol] 0.19 ug/mL [facility] S. pneumoniae 17 IgG (S) [Mass/Vol] 1.72 ug/mL [facility] S. pneumoniae 19 IgG (S) [Mass/Vol] 1.52 ug/mL [facility] S. pneumoniae 2 IgG (S) [Mass/Vol] 0.44 ug/mL [facility] S. pneumoniae 20 IgG (S) [Mass/Vol] 1.53 ug/mL [facility] S. pneumoniae 22 IgG (S) [Mass/Vol] 0.99 ug/mL [facility] S. pneumoniae 23 IgG (S) [Mass/Vol] 0.14 ug/mL [facility] S. pneumoniae 3 IgG (S) [Mass/Vol] 0.36 ug/mL [facility] S. pneumoniae 34 IgG (S) [Mass/Vol] 5.77 ug/mL [facility] S. pneumoniae 4 IgG (S) [Mass/Vol] 0.06 ug/mL [facility] S. pneumoniae 43 IgG (S) [Mass/Vol] 0.93 ug/mL [facility] S. pneumoniae 5 IgG (S) [Mass/Vol] 0.89 ug/mL [facility] S. pneumoniae 8 IgG (S) [Mass/Vol] 0.58 ug/mL [facility] S. pneumoniae 9 IgG (S) [Mass/Vol] 0.4 ug/mL [facility] S. pneumoniae [facility] [place] type 15B IgG (S) [Mass/Vol] 8.27 ug/mL [facility] S. pneumoniae [facility] [place] type 18C IgG (S) [Mass/Vol] 0.39 ug/mL [facility] S. pneumoniae [facility] [place] type 19A IgG (S) [Mass/Vol] 17.72 ug/mL [facility] S. pneumoniae [facility] [place] type 33F IgG (S) [Mass/Vol] 3.04 ug/mL [facility] S. pneumoniae [facility] [place] type 6B IgG (S) [Mass/Vol] 0.82 ug/mL [facility] S. pneumoniae [facility] [place] type 7F IgG (S) [Mass/Vol] 0.34 ug/mL [facility] S. pneumoniae [facility] [place] type 9V IgG (S) [Mass/Vol] 0.78 ug/mL [facility] XR KNEE RT 4V or [...] KRISTINA GARRETT Date: 2022-03-21 16:47 Normal [facility] DIPHTHER/TETANUS ABon 2021 C. diphtheriae IgG Qn (S) 0.1 IU/mL [facility] C. tetani toxoid IgG IA Qn 1 IU/mL [facility] IGA BLDon 03-18-2022 IgA [Mass/Vol] 182 mg/dL 70 - 400 mg/dL [facility] IGE BLDon 03-18-2022 IgE Qn 12.3 kU/l <114.0 kU/l [facility] IGGon 03-18-2022 IgG [Mass/Vol] 618 mg/dL Low 700 - 1,600 mg/dL [facility] IGMon 03-18-2022 IgM [Mass/Vol] 514 mg/dL High 40 - 230 mg/dL [facility] Immunodeficiency panel FC (B ld)on 03-18-2022 CD3 cells (Bld) [#/Vol] 2841 cells/uL High 958 - 2,388 cells/uL [facility] CD3 cells/100 cells (Bld) 81 % 60 - 89 % [facility] CD3+CD4+ (T4 helper) cells (Bld) [#/Vol] 1621 cells/uL 533 - 1,674 cells/uL [facility] CD3+CD4+ (T4 helper) cells/100 cells (Bld) 46 % 34 - 61 % [facility] CD3+CD4+ (T4 helper) cells/CD3+CD8+ (T8 suppressor cells) cells (Bld) [# ratio] 1.55 % 1.10 - 3.25 [facility] CD3+CD8+ (T8 suppressor cells) cells (Bld) [#/Vol] 1049 cells/uL High 175 - 958 cells/uL [facility] CD3+CD8+ (T8 suppressor cells) cells/100 cells (Bld) 30 % 10 - 41 % [facility] CD3-CD16+CD56+ (Natural killer) cells (Bld) [#/Vol] 193 cells/uL 102 - 565 cells/uL [facility] CD3-CD16+CD56+ (Natural killer) cells/100 cells (Bld) 5 % 5 - 25 % [facility] CD3-CD19+ cells (Bld) [#/Vol] 475 cells/uL 75 - 660 cells/uL [facility] CD3-CD19+ cells/100 cells (Bld) 13 % 5 - 22 % [facility] CBC W Auto Differential pane l (Bld)on 03-17-2022 Basophils (Bld) [#/Vol] 0.07 10*3/uL <0.11 k/uL [facility] Basophils/100 WBC (Bld) 0.6 % [facility] Differential cell count method Nom (Bld) Auto [facility] Eosinophils (Bld) [#/Vol] 0.18 10*3/uL <0.46 k/uL [facility] Eosinophils/100 WBC (Bld) 1.6 % [facility] Erythrocyte distribution width (RBC) [Ratio] 14.6 % 11.5 - 15.0 % [facility] Hematocrit (Bld) [Volume fraction] 40.5 % 36.0 - 46.0 % [facility] Hemoglobin (Bld) [Mass/Vol] 13.0 g/dL 11.5 - 15.5 g/dL [facility] Immature granulocytes (Bld) [#/Vol] 0.06 10*3/uL <0.10 k/uL [facility] Immature granulocytes/100 WBC (Bld) 0.5 % [facility] Lymphocytes (Bld) [#/Vol] 2.97 10*3/uL 1.00 - 4.00 k/uL [facility] Lymphocytes/100 WBC (Bld) 26.9 % [facility] MCH (RBC) [Entitic mass] 28.4 pg 26.0 - 34.0 pg [facility] MCHC (RBC) [Mass/Vol] 32.1 g/dL 30.5 - 36.0 g/dL [facility] MCV (RBC) [Entitic vol] 88.4 fL 80.0 - 100.0 fL [facility] Monocytes (Bld) [#/Vol] 0.79 10*3/uL <0.87 k/uL [facility] Monocytes/100 WBC (Bld) 7.2 % [facility] Neutrophils (Bld) [#/Vol] 6.97 10*3/uL 1.45 - 7.50 k/uL [facility] Neutrophils/100 WBC (Bld) 63.2 % [facility] Nucleated RBC (Bld) [#/Vol] <0.01 k/uL [facility] Nucleated RBC/100 WBC (Bld) [Ratio] 0.0 /100 WBC [facility] Platelet mean volume (Bld) [Entitic vol] 9.9 fL 9.0 - 12.7 fL [facility] Platelets (Bld) [#/Vol] 314 10*3/uL 150 - 400 k/uL [facility] RBC (Bld) [#/Vol] 4.58 10*6/uL 3.90 - 5.2 0 m/uL [facility] WBC (Bld) [#/Vol] 11.04 10*3/uL High 3.70 - 11 .00 k/uL [facility] ECHOCARDIO M/2D COMPLETEon ECHOCARDIO M/2D COMPLETE Patient: JONES HALEY Exam Date: 03/12/2022 : 1980 Gender:F Ordering : DR MADELAINE FERRIS . Admission #: [id number] Family : Order #: [id number] CLICK HERE TO VIEW EXAM ECHOCARDIOGRAM REPORT [...] M.D. on 03/16/2022 at 16:47 Normal [facility] INSULINon 03-11-2022 Insulin 17.8 uIU/mL Normal 2.6-24.9 [facility] Comment on above: Performed By: #### C BC #### [facility] [address] [place] [address] Dr. Manda York CBC AUTO DIFFon 03-09-2022 BASO # 0.1 103/ul Normal 0.0-0.1 [facility] Comment on above: Performed By: #### C BC #### [facility] [address] [address] [address] Manda York Basophils/100 WBC (Bld) 0.4 % Normal 0.2-2.0 [facility] Comment on above: Performed By: #### C BC #### [facility] [address] [address] [address] Manda York EO # 0.2 103/ul Normal 0.0-0.7 [facility] Comment on above: Performed By: #### C BC #### [facility] [address] [address] [address] Manda York Eosinophils/100 WBC (Bld) 1.2 % Normal 0.9-7.0 [facility] Comment on above: Performed By: #### C BC #### [facility] [address] [place] [address] Dr. Manda York Erythrocyte distribution width (RBC) [Ratio] 14.6 % Normal 11.0-15.0 [facility] Comment on above: Performed By: #### C BC #### [facility] [address] [address] [address] Manda York Hematocrit (Bld) [Volume fraction] 39.2 % Normal 36.0-48.0 [facility] Comment on above: Performed By: #### C BC #### [facility] [address] [address] [address] Manda York Hemoglobin (Bld) [Mass/Vol] 12.7 g/dL Normal 12.0-16.0 [facility] Comment on above: Performed By: #### C BC #### [facility] [address] [address] [address] Manda York IG # 0.06 10e3/ul Critically high 0.00-0.03 [facility] Comment on above: Performed By: #### C BC #### [facility] [address] [address] [address] Manda York IG % 0.5 % Normal 0.0-0.5 [facility] Comment on above: Performed By: #### C BC #### [facility] [address] [place] [address] Dr. Manda York LYMPH # 3.7 103/ul Normal 1.2-3.8 [facility] Comment on above: Performed By: #### C BC #### [facility] [address] [place] [address] Dr. Manda York Lymphocytes/100 WBC (Bld) 31.0 % Normal 20.5-60.0 [facility] Comment on above: Performed By: #### C BC #### [facility] [address] [place] [address] Dr. Manda York MANUAL DIFF REQ NO Normal [facility] Comment on above: Performed By: #### C BC #### [facility] [address] [place] [address] Dr. Manda York MCH (RBC) [Entitic mass] 28.9 pg Normal 26.7-34.0 [facility] Comment on above: Performed By: #### C BC #### [facility] [address] [place] [address] Dr. Manda York MCHC (RBC) [Mass/Vol] 32.4 g/dL Normal 29.9-35.2 [facility] Comment on above: Performed By: #### C BC #### [facility] [address] [place] [address] Dr. Manda York MCV (RBC) [Entitic vol] 89.1 fL Normal 81.0-99.0 [facility] Comment on above: Performed By: #### C BC #### [facility] [address] [place] [address] Dr. Manda oYrk MONO # 0.7 103/ul Normal 0.3-0.8 [facility] Comment on above: Performed By: #### C BC #### [facility] [address] [place] [address] Dr. Manda York Monocytes/100 WBC (Bld) 5.8 % Normal 1.7-12.0 [facility] Comment on above: Performed By: #### C BC #### [facility] [address] [address] [address] Manda York NEUT # 7.3 103/ul Critically high 1.4-6.5 [facility] Comment on above: Performed By: #### C BC #### [facility] [address] [address] [address] Manda York Neutrophils/100 WBC (Bld) 61.1 % Normal 43.0-75.0 [facility] Comment on above: Performed By: #### C BC #### [facility] [address] [address] [address] Manda York Platelet mean volume (Bld) [Entitic vol] 9.7 fL Normal 9.5-13.5 [facility] Comment on above: Performed By: #### C BC #### [facility] [address] [place] [address] Dr. Manda York PLT 297 103/ul Normal 150-450 [facility] Comment on above: Performed By: #### C BC #### [facility] [address] [place] [address] Dr. Manda York RBC 4.40 106/ul Normal 4.20-5.40 [facility] Comment on above: Performed By: #### C BC #### [facility] [address] [place] [address] Dr. Manda York WBC 12.0 103/ul Critically high 4.0-11.0 [facility] Comment on above: Performed By: #### C BC #### [facility] [address] [place] [address] Dr. Manda York FREE THYROXINE INDEX T7on FTI 3.81 Normal 1.30-4.50 [facility] Comment on above: Performed By: #### U AMIC #### [facility] [address] [place] [address] Dr. Manda York T3U 34.0 % Normal 30.0-39.0 [facility] Comment on above: Performed By: #### U AMIC #### [facility] [address] [address] [address] Manda York T4 [Mass/Vol] 11.20 ug/dL Normal 4.80-13.90 [facility] Comment on above: Performed By: #### U AMIC #### [facility] [address] [place] [address] Dr. Manda York GLYCOHEMOGLOBIN A1Con 2021 ADA RECOMMENDATION SEE BELOW Normal [facility] Comment on above: Result Comment: ADA RECOMMENDED LIMIT 4.0 - 6.0 ADA THERAPEUTIC TARGET < 7.0 ACTION SUGGESTED > 7.0 Performed By: #### S LORIE THYLC #### [facility] [address] [address] [address] Manda York Glucose [Mass/Vol] 117 mg/dL Normal [facility] Comment on above: Performed By: #### S LORIE THYLC #### [facility] [address] [place] [address] Dr. Manda York HbA1c (Bld) [Mass fraction] 5.7 % Normal 4.5-6.2 [facility] Comment on above: Performed By: #### S LORIE THYLC #### [facility] [address] [place] [address] Dr. Manda York IRONon 03-09-2022 Iron [Mass/Vol] 61.0 ug/dL Normal 50.0-170.0 [facility] Comment on above: Performed By: #### C BC #### [facility] [address] [place] [address] Dr. Manda York LIPID PROFILEon 03-09-2022 CHOL-HDL RATIO NORM SEE BELOW Normal [facility] Comment on above: Result Comment: 3.3 - 4.4 LOW RISK 4.4 - 7.1 AVERAGE RISK 7.1 - 11.0 MODERATE RISK >11.0 HIGH RISK Performed By: #### U AMIC #### [facility] [address] [place] [address] Dr. Manda York Cholesterol [Mass/Vol] 260 mg/dL Critically high <=200 [facility] Comment on above: Performed By: #### U AMIC #### [facility] [address] [place], [place] [address] Dr. Manda York Cholesterol in HDL [Mass/Vol] 38 mg/dL Critically low 40-60 [facility] Comment on above: Performed By: #### U AMIC #### [facility] [address] [place], [place] [address] Dr. Manda York Cholesterol in LDL [Mass/Vol] 170.8 mg/dL Normal [facility] Comment on above: Performed By: #### U AMIC #### [facility] [address] [address] [address] Manda York Cholesterol.total/Cho lesterol in HDL [Mass ratio] 6.8 {ratio} Normal [facility] Comment on above: Performed By: #### U AMIC #### [facility] [address] [address] [address] Manda York HDL NORMAL > or = 60 mg/dl - LO W CARDIOVASCULAR RISK <40 mg/dl - HIGH CARDIOVASCULAR RISK Normal [facility] Comment on above: Performed By: #### U AMIC #### [facility] [address] [address] [address] Manda York LDL CALC NORMAL SEE BELOW Normal [facility] Comment on above: Result Comment: <100 mg/dl OPTIMAL 100 - 129 mg/dl NEAR OR ABOVE OPTIMAL 130 - 159 mg/dl BORDERLINE HIGH 160 - 189 mg/dl HIGH >190 mg/dl VERY HIGH Performed By: #### U AMIC #### [facility] [address] [address] [address] Manda York Triglyceride [Mass/Vol] 256 mg/dL Critically high <=150 [facility] Comment on above: Performed By: #### U AMIC #### [facility] [address] [address] [address] Manda York VLDL CALC 51.2 mg/dL Normal [facility] Comment on above: Performed By: #### U AMIC #### [facility] [address] [address] [address] Manda York PROF 14(COMP METB)on 10-17-2 022 Albumin [Mass/Vol] 3.8 g/dL Normal 3.4-5.0 [facility] Comment on above: Performed By: #### U AMIC #### [facility] [address] [address] [address] Manda York Albumin/Globulin [Mass ratio] 1.0 {ratio} Normal [facility] Comment on above: Performed By: #### U AMIC #### [facility] [address] [address] [address] Manda York ALP [Catalytic activity/Vol] 66 U/L Normal 46-116 [facility] Comment on above: Performed By: #### U AMIC #### [facility] [address] [place] [address] Dr. Manda York ALT [Catalytic activity/Vol] 27 U/L Normal 14-59 [facility] Comment on above: Performed By: #### U AMIC #### [facility] [address] [address] [address] Manda York Anion gap [Moles/Vol] 11.8 mmol/L Normal [facility] Comment on above: Performed By: #### U AMIC #### [facility] [address] [place] [address] Dr. Manda York AST [Catalytic activity/Vol] 9 U/L Critically low 15-37 [facility] Comment on above: Performed By: #### U AMIC #### [facility] [address] [address] [address] Manda York Bilirubin [Mass/Vol] 0.2 mg/dL Normal 0.2-1.0 [facility] Comment on above: Performed By: #### U AMIC #### [facility] [address] [address] [address] Manda York Calcium [Mass/Vol] 9.1 mg/dL Normal 8.5-10.1 [facility] Comment on above: Performed By: #### U AMIC #### [facility] [address] [address] [address] Manda York Chloride [Moles/Vol] 101 mmol/L Normal 98-107 [facility] Comment on above: Performed By: #### U AMIC #### [facility] [address] [address] [address] Manda York CO2 [Moles/Vol] 26.1 mmol/L Normal 21.0-32.0 [facility] Comment on above: Performed By: #### U AMIC #### [facility] [address] [address] [address] Manda York Creatinine [Mass/Vol] 0.80 mg/dL Normal 0.55-1.02 [facility] Comment on above: Performed By: #### U AMIC #### [facility] [address] [address] [address] Manda York EGFR-AF SALVADOREAN >60 Normal >=60 [facility] Comment on above: Performed By: #### U AMIC #### [facility] [address] [address] [address] Manda York EGFR-NON AF SALVADOREAN >60 Normal >=60 [facility] Comment on above: Performed By: #### U AMIC #### [facility] [address] [address] [address] Manda York Globulin (S) [Mass/Vol] 3.8 g/dL Normal [facility] Comment on above: Performed By: #### U AMIC #### [facility] [address] [address] [address] Manda York Glucose [Mass/Vol] 93 mg/dL Normal 74-106 [facility] Comment on above: Performed By: #### U AMIC #### [facility] [address] [address] [address] Manda York Potassium [Moles/Vol] 3.9 mmol/L Normal 3.5-5.1 [facility] Comment on above: Performed By: #### U AMIC #### [facility] [address] [address] [address] Manda York Protein [Mass/Vol] 7.6 g/dL Normal 6.4-8.2 [facility] Comment on above: Performed By: #### U AMIC #### [facility] [address] [address] [address] Manda Yrok Sodium [Moles/Vol] 135 mmol/L Critically low 136-145 [facility] Comment on above: Performed By: #### U AMIC #### [facility] [address] [address] [address] Manda York Urea nitrogen [Mass/Vol] 10.0 mg/dL Normal 7.0-18.0 [facility] Comment on above: Performed By: #### U AMIC #### [facility] [address] [address] [address] Manda York Urea nitrogen/Creatinine [Mass ratio] 12.5 mg/mg Normal [facility] Comment on above: Performed By: #### U AMIC #### [facility] [address] [address] [address] Manda York TSHon 03-09-2022 TSH 0.610 uIU/mL Normal 0.358-3.740 [facility] Comment on above: Performed By: #### U AMIC #### [facility] [address] [address] [address] Manda York B2 MICROGLOBULIN Bon 022 Iwad-2-Lcjfdktaxtelz [Mass/Vol] 1.8 ug/mL 0.8 - 2.4 mg/L [facility] FERRITIN BLDon 03-05-2022 Ferritin [Mass/Vol] 33.2 ng/mL 14.7 - 2 05.1 ng/mL [facility] FOLATE SERUMon 03-05-2022 Folate [Mass/Vol] 6.6 ng/mL >4.7 ng/mL [facility] Iron and Iron binding capaci ty panelon 03-05-2022 Iron [Mass/Vol] 49 ug/dL 41 - 186 ug/dL [facility] Iron binding capacity [Mass/Vol] 392 ug/dL High 232 - 386 ug/dL [facility] Iron/TIBC [Molar ratio] 12.5 % Low 15.0 - 57.0 % [facility] CBC W Auto Differential pane l (Bld)on 03-04-2022 Basophils (Bld) [#/Vol] 0.07 10*3/uL <0.11 k/uL [facility] Basophils/100 WBC (Bld) 0.6 % [facility] Differential cell count method Nom (Bld) Auto [facility] Eosinophils (Bld) [#/Vol] 0.19 10*3/uL <0.46 k/uL [facility] Eosinophils/100 WBC (Bld) 1.7 % [facility] Erythrocyte distribution width (RBC) [Ratio] 14.7 % 11.5 - 15.0 % [facility] Hematocrit (Bld) [Volume fraction] 40.0 % 36.0 - 46.0 % [facility] Hemoglobin (Bld) [Mass/Vol] 13.0 g/dL 11.5 - 15.5 g/dL [facility] Immature granulocytes (Bld) [#/Vol] 0.07 10*3/uL <0.10 k/uL [facility] Immature granulocytes/100 WBC (Bld) 0.6 % [facility] Lymphocytes (Bld) [#/Vol] 3.31 10*3/uL 1.00 - 4.00 k/uL [facility] Lymphocytes/100 WBC (Bld) 30.2 % [facility] MCH (RBC) [Entitic mass] 28.9 pg 26.0 - 34.0 pg [facility] MCHC (RBC) [Mass/Vol] 32.5 g/dL 30.5 - 36.0 g/dL [facility] MCV (RBC) [Entitic vol] 88.9 fL 80.0 - 100.0 fL [facility] Monocytes (Bld) [#/Vol] 0.70 10*3/uL <0.87 k/uL [facility] Monocytes/100 WBC (Bld) 6.4 % [facility] Neutrophils (Bld) [#/Vol] 6.63 10*3/uL 1.45 - 7.50 k/uL [facility] Neutrophils/100 WBC (Bld) 60.5 % [facility] Nucleated RBC (Bld) [#/Vol] <0.01 k/uL [facility] Nucleated RBC/100 WBC (Bld) [Ratio] 0.0 /100 WBC [facility] Platelet mean volume (Bld) [Entitic vol] 9.6 fL 9.0 - 12.7 fL [facility] Platelets (Bld) [#/Vol] 355 10*3/uL 150 - 400 k/uL [facility] RBC (Bld) [#/Vol] 4.50 10*6/uL 3.90 - 5.2 0 m/uL [facility] WBC (Bld) [#/Vol] 10.97 10*3/uL 3.70 - 11 .00 k/uL [facility] Calcium.ionized [Moles/Vol]o n 03-04-2022 Calcium.ionized (Bld) [Mass/Vol] 1.26 mmol/L 1.08 - 1.30 mmol/L [facility] Calcium.ionized adjusted to pH 7.4 (Bld) [Moles/Vol] 1.25 mmol/L 1.08 - 1.30 mmol/L [facility] Comprehensive metabolic 2000 panelon 03-04-2022 Albumin [Mass/Vol] 4.3 g/dL 3.9 - 4.9 g/dL [facility] ALP [Catalytic activity/Vol] 70 U/L 34 - 123 U/L [facility] ALT [Catalytic activity/Vol] 26 U/L 7 - 38 U/L [facility] Anion gap [Moles/Vol] 7 mmol/L Low 9 - 18 mmol/L [facility] AST [Catalytic activity/Vol] 12 U/L Low 13 - 35 U/L [facility] Bilirubin [Mass/Vol] 0.2 mg/dL 0.2 - 1 .3 mg/dL [facility] Calcium [Mass/Vol] 9.3 mg/dL 8.5 - 10. 2 mg/dL [facility] Chloride [Moles/Vol] 103 mmol/L 97 - 10 5 mmol/L [facility] CO2 [Moles/Vol] 28 mmol/L 22 - 30 mmol/L [facility] Creatinine [Mass/Vol] 0.69 mg/dL 0.58 - 0.96 mg/dL [facility] Estimated Glomerular Filtration Rate 112 mL/min/1.73m >=60 mL/min/1.73m [facility] Glucose [Mass/Vol] 100 mg/dL High 74 - 99 mg/dL [facility] Potassium [Moles/Vol] 3.9 mmol/L 3.7 - 5.1 mmol/L [facility] Protein [Mass/Vol] 7.0 g/dL 6.3 - 8.0 g/dL [facility] Sodium [Moles/Vol] 138 mmol/L 136 - 144 mmol/L [facility] Urea nitrogen [Mass/Vol] 12 mg/dL 7 - 21 mg/dL [facility] LD LACTATE DEHYDROon 022 LDH [Catalytic activity/Vol] 135 U/L 135 - 214 U/L [facility] PHOSPHORUS INORGANICon 03-04 Phosphate [Mass/Vol] 3.2 mg/dL 2.7 - 4 .8 mg/dL [facility] URIC ACID BLOODon 03-04-2022 Urate [Mass/Vol] 5.2 mg/dL 2.5 - 6.6 mg/dL [facility] IMMUNOGLOBULINS IGA/IGM/IGG/ IGE QUANTITAon 02-20-2022 Immunoglobulin A, Qn, Serum 189 mg/dL Normal 87-352 [facility] Comment on above: Result Comment: Perf ormed at: CB Performed By: #### LEANN PATRICKC #### [facility] [address] [address] [address] Manda York Immunoglobulin E, Total 10 IU/mL Normal 6-495 [facility] Comment on above: Result Comment: Perf ormed at: BN Performed By: #### LEANN PATRICKC #### [facility] [address] [address] [address] Manda York Immunoglobulin G, Qn, Serum 598 mg/dL Normal 586-1602 [facility] Comment on above: Result Comment: Perf ormed at: CB Performed By: #### LEANN PATRICKC #### [facility] [address] [address] [address] Manda York Immunoglobulin M, Qn, Serum 493 mg/dL Critically high 26-217 [facility] Comment on above: Result Comment: Perf ormed at: CB Performed By: #### LEANN PATRICKC #### [facility] [address] [address] [address] Manda York CHRISTIAN by IFAon 02-19-2022 Antinuclear Antibodies, IFA Negative Normal [facility] Comment on above: Result Comment: Nega tive <1:80 Borderline 1:80 Positive >1:80 ICAP nomenclature: AC-0 For more information about Hep-2 cell patterns use ANApatterns.org, the official website for the International Consensus on Antinuclear Antibody (CHRISTIAN) Patterns (ICAP). Performed By: #### S LUIGI MELO #### [facility] [address] [place] [address] Dr. Manda York THYROID ANTIBODIESon Thyroglobulin Antibody <1.0 Normal 0.0-0.9 [facility] Comment on above: Result Comment: Thyr oglobulin Antibody measured by [employer] Methodology Performed By: #### F T4 #### [facility] [address] [place] [address] Dr. Manda York Thyroid Peroxidase (TPO) Ab <8 Normal 0-34 [facility] Comment on above: Performed By: #### F T4 #### [facility] [address] [place] [address] Dr. Manda York PROTEIN ELECTROPHERESISon Albumin [Mass/Vol] 3.2 g/dL Normal 2.9-4.4 [facility] Comment on above: Performed By: #### F T4 #### [facility] [address] [place] [address] Dr. Manda York Albumin/Globulin [Mass ratio] 1.0 {ratio} Normal 0.7-1.7 [facility] Comment on above: Performed By: #### F T4 #### [facility] [address] [place] [address] Dr. Manda York Xilln-9-Iclnjruo 0.2 g/dL Normal 0.0-0.4 [facility] Comment on above: Performed By: #### F T4 #### [facility] [address] [place] [address] Dr. Manda York Ksswi-4-Vekczzgo 0.9 g/dL Normal 0.4-1.0 [facility] Comment on above: Performed By: #### F T4 #### [facility] [address] [place] [address] Dr. Manda York Beta Globulin 1.2 g/dL Normal 0.7-1.3 [facility] Comment on above: Performed By: #### F T4 #### [facility] [address] [address] [address] Manda York Gamma Globulin 0.9 g/dL Normal 0.4-1.8 [facility] Comment on above: Performed By: #### F T4 #### [facility] [address] [place] [address] Dr. Manda York Globulin (S) [Mass/Vol] 3.2 g/dL Normal 2.2-3.9 [facility] Comment on above: Performed By: #### F T4 #### [facility] [address] [place] [address] Dr. Manda York M-Jose De Jesus Not Observed Normal Not Observed [facility] Comment on above: Performed By: #### F T4 #### [facility] [address] [place] [address] Dr. Manda York PDF . Normal [facility] Comment on above: Performed By: #### F T4 #### [facility] [address] [place] [address] Dr. Manda York Please note: Comment Normal [facility] Comment on above: Result Comment: Prot ein electrophoresis scan will follow via computer, mail, or palliative care coordinator delivery. Performed By: #### F T4 #### [facility] [address] [place] [address] Dr. Manda York Protein [Mass/Vol] 6.4 g/dL Normal 6.0-8.5 [facility] Comment on above: Performed By: #### F T4 #### [facility] [address] [place] [address] Dr. Manda York SLE PROFILE Aon 02-16-2022 Anti-DNA (DS) Ab Qn 9 IU/mL Normal 0-9 [facility] Comment on above: Result Comment: Nega tive <5 Equivocal 5 - 9 Positive >9 Performed By: #### S LUIGI MELO #### [facility] [address] [place] [address] Dr. Manda York Antichromatin Antibodies <0.2 Normal 0.0-0.9 [facility] Comment on above: Performed By: #### LEANN PATRICKC #### [facility] [address] [place] [address] Dr. Manda York RA Latex Turbid. <10.0 Normal <14.0 [facility] Comment on above: Performed By: #### LEANN PATRICKC #### [facility] [address] [place] [address] Dr. Manda York LEAD OPERATOR Antibodies <0.2 Normal 0.0-0.9 [facility] Comment on above: Performed By: #### LEANN PATRICKC #### [facility] [address] [place] [address] Dr. Manda Solorzanoogryaniv's Anti-SS-A <0.2 Normal 0.0-0.9 [facility] Comment on above: Performed By: #### LUIGI PATRICK #### [facility] [address] [place] [address] Dr. Manda Solorzanoogryaniv'tye Anti-SS-B <0.2 Normal 0.0-0.9 [facility] Comment on above: Performed By: #### LUIGI PATRICK #### [facility] [address] [place] [address] Dr. Manda York Schneider Antibodies <0.2 Normal 0.0-0.9 [facility] Comment on above: Performed By: #### LUIGI PATRICK #### [facility] [address] [place] [address] Dr. Manda York ANTISTREPTOLYSIN O AB (ASO)o n 02-15-2022 Antistreptolysin O Ab 49.6 IU/mL Normal 0.0-200.0 [facility] Comment on above: Performed By: #### A SOAB #### [facility] [address] [place] [address] Dr. Manda York MICROALBUMIN URINEon 022 Albumin, Urine <3.0 Normal Not Estab. [facility] Comment on above: Result Comment: Ve rified by repeat analysis Performed By: #### C BC #### [facility] [address] [place] [address] Dr. Manda York T4, T3U, FTI LABCORPon 02-15 Free Thyroxine Index 2.6 Normal 1.2-4.9 [facility] Comment on above: Performed By: #### S LORIE THYLC #### [facility] [address] [place] [address] Dr. Manda York T3 Uptake 26 % Normal 24-39 [facility] Comment on above: Performed By: #### S LORIE THYLC #### [facility] [address] [place] [address] Dr. Manda York T4 [Mass/Vol] 9.9 ug/dL Normal 4.5-12.0 [facility] Comment on above: Performed By: #### S LEANN MELOC #### [facility] [address] [place] [address] Dr. Manda York CBC AUTO DIFFon 02-14-2022 BASO # 0.1 103/ul Normal 0.0-0.1 [facility] Comment on above: Performed By: #### U AMIC #### [facility] [address] [place] [address] Dr. Manda York Basophils/100 WBC (Bld) 0.6 % Normal 0.2-2.0 [facility] Comment on above: Performed By: #### U AMIC #### [facility] [address] [place] [address] Dr. Manda York EO # 0.3 103/ul Normal 0.0-0.7 [facility] Comment on above: Performed By: #### U AMIC #### [facility] [address] [place] [address] Dr. Manda York Eosinophils/100 WBC (Bld) 3.4 % Normal 0.9-7.0 [facility] Comment on above: Performed By: #### U AMIC #### [facility] [address] [place] [address] Dr. Manda York Erythrocyte distribution width (RBC) [Ratio] 14.6 % Normal 11.0-15.0 [facility] Comment on above: Performed By: #### U AMIC #### [facility] [address] [place] [address] Dr. Manda York Hematocrit (Bld) [Volume fraction] 39.1 % Normal 36.0-48.0 [facility] Comment on above: Performed By: #### U AMIC #### [facility] [address] [place] [address] Dr. Manda York Hemoglobin (Bld) [Mass/Vol] 12.4 g/dL Normal 12.0-16.0 [facility] Comment on above: Performed By: #### U AMIC #### [facility] [address] [place] [address] Dr. Manda York IG # 0.03 10e3/ul Normal 0.00-0.03 [facility] Comment on above: Performed By: #### U AMIC #### [facility] [address] [place] [address] Dr. Manda York IG % 0.3 % Normal 0.0-0.5 [facility] Comment on above: Performed By: #### U AMIC #### [facility] [address] [place] [address] Dr. Manda York LYMPH # 3.6 103/ul Normal 1.2-3.8 [facility] Comment on above: Performed By: #### U AMIC #### [facility] [address] [place] [address] Dr. Manda York Lymphocytes/100 WBC (Bld) 39.9 % Normal 20.5-60.0 [facility] Comment on above: Performed By: #### U AMIC #### [facility] [address] [place] [address] Dr. Manda York MANUAL DIFF REQ NO Normal [facility] Comment on above: Performed By: #### U AMIC #### [facility] [address] [place] [address] Dr. Manda York MCH (RBC) [Entitic mass] 28.4 pg Normal 26.7-34.0 [facility] Comment on above: Performed By: #### U AMIC #### [facility] [address] [address] [address] Manda York MCHC (RBC) [Mass/Vol] 31.7 g/dL Normal 29.9-35.2 [facility] Comment on above: Performed By: #### U AMIC #### [facility] [address] [address] [address] Manda York MCV (RBC) [Entitic vol] 89.7 fL Normal 81.0-99.0 [facility] Comment on above: Performed By: #### U AMIC #### [facility] [address] [place] [address] Dr. Manda York MONO # 0.7 103/ul Normal 0.3-0.8 [facility] Comment on above: Performed By: #### U AMIC #### [facility] [address] [place] [address] Dr. Manda York Monocytes/100 WBC (Bld) 7.3 % Normal 1.7-12.0 [facility] Comment on above: Performed By: #### U AMIC #### [facility] [address] [place] [address] Dr. Manda York NEUT # 4.4 103/ul Normal 1.4-6.5 [facility] Comment on above: Performed By: #### U AMIC #### [facility] [address] [place] [address] Dr. Manda York Neutrophils/100 WBC (Bld) 48.5 % Normal 43.0-75.0 [facility] Comment on above: Performed By: #### U AMIC #### [facility] [address] [place] [address] Dr. Manda York Platelet mean volume (Bld) [Entitic vol] 10.1 fL Normal 9.5-13.5 [facility] Comment on above: Performed By: #### U AMIC #### [facility] [address] [place] [address] Dr. Manda York PLT 310 103/ul Normal 150-450 [facility] Comment on above: Performed By: #### U AMIC #### [facility] [address] [place] [address] Dr. Manda York RBC 4.36 106/ul Normal 4.20-5.40 [facility] Comment on above: Performed By: #### U AMIC #### [facility] [address] [place] [address] Dr. Manda York WBC 9.0 103/ul Normal 4.0-11.0 [facility] Comment on above: Performed By: #### U AMIC #### [facility] [address] [place] [address] Dr. Manda York CRPon 02-14-2022 CRP [Mass/Vol] mg/L Normal <=1.0 [facility] Comment on above: Performed By: #### U AMIC #### [facility] [address] [place] [address] Dr. Manda York CULTURE URINEon 02-14-2022 CULTURE URINE Culture Observations : LIGHT GROWTH OF MIXED GENITAL AMBER. NO POTENTIAL PATHOGENS SEEN. Normal [facility] Comment on above: Performed By: #### C BC #### [facility] [address] [place] [address] Dr. Manda Yokr PROF 14(COMP METB)on 022 Albumin [Mass/Vol] 3.5 g/dL Normal 3.4-5.0 [facility] Comment on above: Performed By: #### U AMIC #### [facility] [address] [place] [address] Dr. Manda York Albumin/Globulin [Mass ratio] 1.0 {ratio} Normal [facility] Comment on above: Performed By: #### U AMIC #### [facility] [address] [place] [address] Dr. Manda York ALP [Catalytic activity/Vol] 71 U/L Normal 46-116 [facility] Comment on above: Performed By: #### U AMIC #### [facility] [address] [place] [address] Dr. Manda York ALT [Catalytic activity/Vol] 46 U/L Normal 14-59 [facility] [facility] Comment on above: Performed By: #### U AMIC #### [facility] [address] [address] [address] Manda York Anion gap [Moles/Vol] 11.6 mmol/L Normal Th [facility] Comment on above: Performed By: #### U AMIC #### [facility] [address] [address] [address] Manda York AST [Catalytic activity/Vol] 15 U/L Normal 15-37 [facility] Comment on above: Performed By: #### U AMIC #### [facility] [address] [place] [address] Dr. Manda York Bilirubin [Mass/Vol] 0.2 mg/dL Normal 0.2-1.0 [facility] Comment on above: Performed By: #### U AMIC #### [facility] [address] [place] [address] Dr. Manda York Calcium [Mass/Vol] 8.7 mg/dL Normal 8.5-10.1 [facility] Comment on above: Performed By: #### U AMIC #### [facility] [address] [place] [address] Dr. Manda York Chloride [Moles/Vol] 104 mmol/L Normal 98-107 [facility] Comment on above: Performed By: #### U AMIC #### [facility] [address] [place] [address] Dr. Manda York CO2 [Moles/Vol] 25.1 mmol/L Normal 21.0-32.0 [facility] Comment on above: Performed By: #### U AMIC #### [facility] [address] [place] [address] Dr. Manda York Creatinine [Mass/Vol] 0.80 mg/dL Normal 0.55-1.02 [facility] Comment on above: Performed By: #### U AMIC #### [facility] [address] [address] [address] Manda York EGFR-AF SALVADOREAN >60 Normal >=60 [facility] Comment on above: Performed By: #### U AMIC #### [facility] [address] [address] [address] Manda York EGFR-NON AF SALVADOREAN >60 Normal >=60 [facility] Comment on above: Performed By: #### U AMIC #### [facility] [address] [address] [address] Manda York Globulin (S) [Mass/Vol] 3.6 g/dL Normal [facility] Comment on above: Performed By: #### U AMIC #### [facility] [address] [address] [address] Manda York Glucose [Mass/Vol] 92 mg/dL Normal 74-106 [facility] Comment on above: Performed By: #### U AMIC #### [facility] [address] [address] [address] Manda York Potassium [Moles/Vol] 3.7 mmol/L Normal 3.5-5.1 [facility] Comment on above: Performed By: #### U AMIC #### [facility] [address] [address] [address] Manda York Protein [Mass/Vol] 7.1 g/dL Normal 6.4-8.2 [facility] Comment on above: Performed By: #### U AMIC #### [facility] [address] [address] [address] Manda York Sodium [Moles/Vol] 137 mmol/L Normal 136-145 [facility] Comment on above: Performed By: #### U AMIC #### [facility] [address] [address] [address] Manda York Urea nitrogen [Mass/Vol] 17.0 mg/dL Normal 7.0-18.0 [facility] Comment on above: Performed By: #### U AMIC #### [facility] [address] [address] [address] Manda York Urea nitrogen/Creatinine [Mass ratio] 21.2 mg/mg Normal [facility] Comment on above: Performed By: #### U AMIC #### [facility] [address] [place] [address] Dr. Manda York SED RATE WESTERGREN 2021 SED RATE 40 mm/hr Critically high <=20 [facility] Comment on above: Performed By: #### S EDR #### [facility] [address] [place] [address] Dr. Manda York TSHon 02-14-2022 TSH 1.155 uIU/mL Normal 0.358-3.740 [facility] Comment on above: Performed By: #### U AMIC #### [facility] [address] [place] [address] Dr. Manda York UA RANDOM W/MICROSCOPICon BACTERIA NONE SEEN Normal NONE SEEN [facility] Comment on above: Performed By: #### U AMIC #### [facility] [address] [place] [address] Dr. Manda York Bilirubin Ql (U) Negative Normal NEGATIVE [facility] Comment on above: Performed By: #### U AMIC #### [facility] [address] [place] [address] Dr. Manda York CAST NONE SEEN Normal NONE SEEN [facility] Comment on above: Performed By: #### U AMIC #### [facility] [address] [place] [address] Dr. Manda York Clarity (U) CLEAR Normal CLEAR [facility] Comment on above: Performed By: #### U AMIC #### [facility] [address] [place] [address] Dr. Manda York Color (U) LT. YELLOW Normal YELLOW [facility] Comment on above: Performed By: #### U AMIC #### [facility] [address] [place] [address] Dr. Manda York Crystals LM Nom (Urine sed) NONE SEEN Normal NONE SEEN [facility] Comment on above: Performed By: #### U AMIC #### [facility] [address] [place] [address] Dr. Manda York Epithelial cells LM Ql (Urine sed) RARE Normal NONE SEEN /RARE [facility] Comment on above: Performed By: #### U AMIC #### [facility] [address] [address] [address] Manda York Glucose Ql (U) Negative Normal NEGATIVE [facility] Comment on above: Performed By: #### U AMIC #### [facility] [address] [address] [address] Manda York Hemoglobin Ql (U) Negative Normal NEGATIVE [facility] Comment on above: Performed By: #### U AMIC #### [facility] [address] [address] [address] Manda York Ketones Ql (U) Negative Normal NEGATIVE [facility] Comment on above: Performed By: #### U AMIC #### [facility] [address] [place] [address] Dr. Manda York LEUKOCYTES Negative Normal NEGATIVE [facility] Comment on above: Performed By: #### U AMIC #### [facility] [address] [address] [address] Manda York MUCOUS NONE SEEN Normal NONE SEEN [facility] Comment on above: Performed By: #### U AMIC #### [facility] [address] [address] [address] Manda York Nitrite Ql (U) Negative Normal NEGATIVE [facility] Comment on above: Performed By: #### U AMIC #### [facility] [address] [address] [address] Manda York pH (U) 6.0 [pH] Normal 5-9 [facility] Comment on above: Performed By: #### U AMIC #### [facility] [address] [address] [address] Manda York RBC NONE SEEN Abnormal 0-2 [facility] Comment on above: Performed By: #### U AMIC #### [facility] [address] [place] [address] Dr. Manda York SPEC GRAVITY 1.005 Normal 1.005-<=1.025 [facility] Comment on above: Performed By: #### U AMIC #### [facility] [address] [address] [address] Manda York UA PROTEIN Negative Normal NEGATIVE/ TRACE [facility] Comment on above: Performed By: #### U AMIC #### [facility] [address] [address] [address] Manda York Urobilinogen Qn (U) 0.2 {Carmella'U}/dL Normal 0.2 - 1. 0 [facility] Comment on above: Performed By: #### U AMIC #### [facility] [address] [place] [address] Dr. Manda York WBC NONE SEEN Normal NONE SEEN [facility] Comment on above: Performed By: #### U AMIC #### [facility] [address] [place] [address] Dr. Manda York URIC ACID SERUMon 02-14-2022 Urate [Mass/Vol] 4.2 mg/dL Normal 2.6-6.0 [facility] Comment on above: Performed By: #### U AMIC #### [facility] [address] [place] [address] Dr. Manda York VITAMIN D 25 OHon 02-14-2022 VIT D 25-OH 22.4 ng/mL Normal [facility] Comment on above: Performed By: #### F T4 #### [facility] [address] [place] [address] Dr. Manda York VIT D RANGES SEE BELOW Normal [facility] Comment on above: Result Comment: <20 ng/mL Vit D deficient 20 - <30 ng/mL Vit D insufficient 30 - 100 ng/mL Vit D sufficient >100 ng/mL Potential Toxicity Performed By: #### F T4 #### [facility] [address] [place] [address] Dr. Manda York METANEPHRINES FRAC. QNT 24 H R URINEon 11-28-2021 Metanephrine, U,24hr Comment Normal 36-209 [facility] Comment on above: Result Comment: No t otal volume submitted. Unable to calculate 24 hour result. Performed By: #### S LORIE THYL #### [facility] [address] [address] [address] Manda York Metanephrine, Ur 57 ug/L Normal Undefined [facility] Comment on above: Performed By: #### LEANN PATRICKC #### [facility] [address] [address] [address] Manda York Normetanephr.,U,24h Comment Normal 131-612 [facility] Comment on above: Result Comment: No t otal volume submitted. Unable to calculate 24 hour result. Performed By: #### S LEANN MELOC #### [facility] [address] [address] [address] Manda York Normetanephrine, Ur 116 ug/L Normal Undefined [facility] Comment on above: Performed By: #### LEANN PATRICK #### [facility] [address] [address] [address] Manda York METANEPHRINES PLASMA FREEon 11-27-2021 Metanephrine, Pl 22.1 pg/mL Normal 0.0-88.0 [facility] Comment on above: Performed By: #### LAENN PATRICK #### [facility] [address] [place] [address] Dr. Manda York Normetanephrine, Pl 50.7 pg/mL Normal 0.0-218.9 [facility] Comment on above: Performed By: #### LEANN PATRICK #### [facility] [address] [address] [address] Manda York CMV PLASMA PCRon 11-19-2021 CMV Quant DNA PCR (Plasma) Negative Normal Negative [facility] Comment on above: Result Comment: No C MV DNA detected. The quantitative range of this assay is 200 to 1 million IU/mL. Performed By: #### LEANN PATRICKC #### [facility] [address] [place] [address] Dr. Manda York log10 CMV Qn DNA Pl UPTCAL Normal [facility] Comment on above: Result Comment: Unab le to calculate result since non-numeric result obtained for component test. Performed By: #### S LEANN MELO #### [facility] [address] [place] [address] Dr. Manda York CMV AB IGMon 11-18-2021 Cytomegalovirus (CMV) Ab, IgM 43.2 AU/mL Critically high 0.0-29.9 [facility] Comment on above: Result Comment: Nega tive <30.0 Equivocal 30.0 - 34.9 Positive >34.9 A positive result is generally indicative of acute infection, reactivation or persistent IgM production. Performed By: #### S LUIGI MELO #### [facility] [address] [place] [address] Dr. Manda York CMV AB, IGGon 11-18-2021 Cytomegalovirus (CMV) Ab, IgG >10.00 Critically high 0.00-0.59 [facility] Comment on above: Result Comment: Nega tive <0.60 Equivocal 0.60 - 0.69 Positive >0.69 Performed By: #### C MVIGG #### [facility] [address] [place] [address] Dr. Manda York CBC AUTO DIFFon 11-17-2021 BASO # 0.1 103/ul Normal 0.0-0.1 [facility] Comment on above: Performed By: #### C BC #### [facility] [address] [place] [address] Dr. Manda York Basophils/100 WBC (Bld) 0.6 % Normal 0.2-2.0 [facility] Comment on above: Performed By: #### C BC #### [facility] [address] [place] [address] Dr. Manda York EO # 0.2 103/ul Normal 0.0-0.7 [facility] Comment on above: Performed By: #### C BC #### [facility] [address] [place] [address] Dr. Manda York Eosinophils/100 WBC (Bld) 2.3 % Normal 0.9-7.0 [facility] Comment on above: Performed By: #### C BC #### [facility] [address] [place] [address] Dr. Manda York Erythrocyte distribution width (RBC) [Ratio] 14.2 % Normal 11.0-15.0 [facility] Comment on above: Performed By: #### C BC #### [facility] [address] [place] [address] Dr. Manda York Hematocrit (Bld) [Volume fraction] 40.2 % Normal 36.0-48.0 [facility] Comment on above: Performed By: #### C BC #### [facility] [address] [place] [address] Dr. Manda York Hemoglobin (Bld) [Mass/Vol] 12.8 g/dL Normal 12.0-16.0 [facility] Comment on above: Performed By: #### C BC #### [facility] [address] [place] [address] Dr. Manda York IG # 0.02 10e3/ul Normal 0.00-0.03 [facility] Comment on above: Performed By: #### C BC #### [facility] [address] [place] [address] Dr. Manda York IG % 0.2 % Normal 0.0-0.5 [facility] Comment on above: Performed By: #### C BC #### [facility] [address] [place] [address] Dr. Manda York LYMPH # 2.5 103/ul Normal 1.2-3.8 [facility] Comment on above: Performed By: #### C BC #### [facility] [address] [place] [address] Dr. Manda York Lymphocytes/100 WBC (Bld) 24.9 % Normal 20.5-60.0 [facility] Comment on above: Performed By: #### C BC #### [facility] [address] [place] [address] Dr. Manda York MANUAL DIFF REQ NO Normal [facility] Comment on above: Performed By: #### C BC #### [facility] [address] [place] [address] Dr. Manda York MCH (RBC) [Entitic mass] 27.9 pg Normal 26.7-34.0 [facility] Comment on above: Performed By: #### C BC #### [facility] [address] [place] [address] Dr. Manda York MCHC (RBC) [Mass/Vol] 31.8 g/dL Normal 29.9-35.2 [facility] Comment on above: Performed By: #### C BC #### [facility] [address] [place] [address] Dr. Manda York MCV (RBC) [Entitic vol] 87.6 fL Normal 81.0-99.0 [facility] Comment on above: Performed By: #### C BC #### [facility] [address] [place] [address] Dr. Manda York MONO # 0.6 103/ul Normal 0.3-0.8 [facility] Comment on above: Performed By: #### C BC #### [facility] [address] [place] [address] Dr. Manda York Monocytes/100 WBC (Bld) 6.3 % Normal 1.7-12.0 [facility] Comment on above: Performed By: #### C BC #### [facility] [address] [place] [address] Dr. Manda York NEUT # 6.5 103/ul Normal 1.4-6.5 [facility] Comment on above: Performed By: #### C BC #### [facility] [address] [place] [address] Dr. Manda York Neutrophils/100 WBC (Bld) 65.7 % Normal 43.0-75.0 [facility] Comment on above: Performed By: #### C BC #### [facility] [address] [place] [address] Dr. Manda York Platelet mean volume (Bld) [Entitic vol] 10.1 fL Normal 9.5-13.5 [facility] Comment on above: Performed By: #### C BC #### [facility] [address] [place] [address] Dr. Manda York PLT 304 103/ul Normal 150-450 [facility] Comment on above: Performed By: #### C BC #### [facility] [address] [place] [address] Dr. Manda York RBC 4.59 106/ul Normal 4.20-5.40 [facility] Comment on above: Performed By: #### C BC #### [facility] [address] [place] [address] Dr. Manda York WBC 9.9 103/ul Normal 4.0-11.0 [facility] Comment on above: Performed By: #### C BC #### [facility] [address] [place] [address] Dr. Manda York PROF 14(COMP METB)on 022 Albumin [Mass/Vol] 3.7 g/dL Normal 3.4-5.0 [facility] Comment on above: Performed By: #### C BC #### [facility] [address] [place] [address] Dr. Manda York Albumin/Globulin [Mass ratio] 1.0 {ratio} Normal [facility] Comment on above: Performed By: #### C BC #### [facility] [address] [place] [address] Dr. Manda York ALP [Catalytic activity/Vol] 65 U/L Normal 46-116 [facility] Comment on above: Performed By: #### C BC #### [facility] [address] [place] [address] Dr. Manda York ALT [Catalytic activity/Vol] 35 U/L Normal 14-59 [facility] Comment on above: Performed By: #### C BC #### [facility] [address] [place] [address] Dr. Manda York Anion gap [Moles/Vol] 13.0 mmol/L Normal [facility] Comment on above: Performed By: #### C BC #### [facility] [address] [place] [address] Dr. Manda York AST [Catalytic activity/Vol] 12 U/L Critically low 15-37 [facility] Comment on above: Performed By: #### C BC #### [facility] [address] [place] [address] Dr. Manda York Bilirubin [Mass/Vol] 0.2 mg/dL Normal 0.2-1.0 [facility] Comment on above: Performed By: #### C BC #### [facility] [address] [address] [address] Manda York Calcium [Mass/Vol] 8.7 mg/dL Normal 8.5-10.1 [facility] Comment on above: Performed By: #### C BC #### [facility] [address] [place] [address] Dr. Manda York Chloride [Moles/Vol] 104 mmol/L Normal 98-107 [facility] Comment on above: Performed By: #### C BC #### [facility] [address] [place] [address] Dr. Manda York CO2 [Moles/Vol] 24.9 mmol/L Normal 21.0-32.0 [facility] Comment on above: Performed By: #### C BC #### [facility] [address] [place] [address] Dr. Manda York Creatinine [Mass/Vol] 0.77 mg/dL Normal 0.55-1.02 [facility] Comment on above: Performed By: #### C BC #### [facility] [address] [place] [address] Dr. Manda York EGFR-AF SALVADOREAN >=60 Normal >=60 [facility] Comment on above: Performed By: #### C BC #### [facility] [address] [place] [address] Dr. Manda York EGFR-NON AF SALVADOREAN >=60 Normal >=60 [facility] Comment on above: Performed By: #### C BC #### [facility] [address] [place] [address] Dr. Manda York Globulin (S) [Mass/Vol] 3.8 g/dL Normal [facility] Comment on above: Performed By: #### C BC #### [facility] [address] [address] [address] Manda York Glucose [Mass/Vol] 110 mg/dL Critically high 74-106 [facility] Comment on above: Performed By: #### C BC #### [facility] [address] [address] [address] Manda York Potassium [Moles/Vol] 3.9 mmol/L Normal 3.5-5.1 [facility] Comment on above: Performed By: #### C BC #### [facility] [address] [address] [address] Manda York Protein [Mass/Vol] 7.5 g/dL Normal 6.4-8.2 [facility] Comment on above: Performed By: #### C BC #### [facility] [address] [place] [address] Dr. aMnda York Sodium [Moles/Vol] 138 mmol/L Normal 136-145 [facility] Comment on above: Performed By: #### C BC #### [facility] [address] [address] [address] Manda York Urea nitrogen [Mass/Vol] 17.0 mg/dL Normal 7.0-18.0 [facility] Comment on above: Performed By: #### C BC #### [facility] [address] [address] [address] Manda York Urea nitrogen/Creatinine [Mass ratio] 22.1 mg/mg Normal [facility] Comment on above: Performed By: #### C BC #### [facility] [address] [address] [address] [facility] mm/hr Critically high <=20 [facility] Comment on above: Performed By: #### F T4 #### [facility] [address] [address] [address] Manda York CHRISTIAN EIA W/REFLEX 5 BIOMARKER Son 10-06-2021 CHRISTIAN Direct Positive Abnormal Negative [facility] Comment on above: Performed By: #### C BC #### [facility] [address] [address] [address] Manda York Anti-DNA (DS) Ab Qn 10 IU/mL Critically high 0-9 [facility] Comment on above: Result Comment: Nega tive <5 Equivocal 5 - 9 Positive >9 Performed By: #### C BC #### [facility] [address] [address] [address] Manda York LEAD OPERATOR Antibodies <0.2 Normal 0.0-0.9 [facility] Comment on above: Performed By: #### C BC #### [facility] [address] [address] [address] Manda York SEE BELOW: Comment Normal [facility] Comment on above: Result Comment: Auto [...] Sm (anti-Schneider) SLE 15 - 30% --------- LEAD OPERATOR Mixed Connective Tissue Disease 95% (U1 nRNP, SLE 30 - 50% anti-ribonucleoprotein) Polymyositis and/or Dermatomyositis 20% --------- Scl-70 (antiDNA Scleroderma (diffuse) 20 - 35% topoisomerase) Crest 13% --------- Felicita-1 Polymyositis and/or Dermatomyositis 20 - 40% --------- Centromere B Scleroderma - Crest variant 80% Performed By: #### C BC #### [facility] [address] [place] [address] Dr. Manda Solorzanoogryaniv'tye Anti-SS-A <0.2 Normal 0.0-0.9 [facility] Comment on above: Performed By: #### C BC #### [facility] [address] [address] [address] Manda York Sjogren's Anti-SS-B <0.2 Normal 0.0-0.9 [facility] Comment on above: Performed By: #### C BC #### [facility] [address] [address] [address] Manda York Schneider Antibodies <0.2 Normal 0.0-0.9 [facility] Comment on above: Performed By: #### C BC #### [facility] [address] [address] [address] Manda York CMV PLASMA PCRon 10-06-2021 CMV Quant DNA PCR (Plasma) Negative Normal Negative [facility] Comment on above: Result Comment: No C MV DNA detected. The quantitative range of this assay is 200 to 1 million IU/mL. Performed By: #### C MVPL #### [facility] [address] [place] [address] Dr. Manda York log10 CMV Qn DNA Pl UPTCAL Normal [facility] Comment on above: Result Comment: Unab le to calculate result since non-numeric result obtained for component test. Performed By: #### C MVPL #### [facility] [address] [place] [address] Dr. Manda York CMV AB IGMon 2021 Cytomegalovirus (CMV) Ab, IgM 35.5 AU/mL Critically high 0.0-29.9 [facility] Comment on above: Result Comment: Nega tive <30.0 Equivocal 30.0 - 34.9 Positive >34.9 A positive result is generally indicative of acute infection, reactivation or persistent IgM production. Performed By: #### [facility] #### [facility] [address] [place] [address] Dr. Manda York CMV AB, IGGon 2021 Cytomegalovirus (CMV) Ab, IgG 6.30 U/mL Critically high 0.00-0.59 [facility] Comment on above: Result Comment: Nega tive <0.60 Equivocal 0.60 - 0.69 Positive >0.69 Performed By: #### S LORIE [facility] #### [facility] [address] [place] [address] Dr. Manda York CBC AUTO DIFFon 10-03-2021 BASO # 0.1 103/ul Normal 0.0-0.1 [facility] Comment on above: Performed By: #### C BC #### [facility] [address] [place] [address] Dr. Manda York Basophils/100 WBC (Bld) 0.7 % Normal 0.2-2.0 [facility] Comment on above: Performed By: #### C BC #### [facility] [address] [place] [address] Dr. Manda York EO # 0.2 103/ul Normal 0.0-0.7 [facility] Comment on above: Performed By: #### C BC #### [facility] [address] [place] [address] Dr. Manda York Eosinophils/100 WBC (Bld) 2.0 % Normal 0.9-7.0 [facility] Comment on above: Performed By: #### C BC #### [facility] [address] [place] [address] Dr. Manda York Erythrocyte distribution width (RBC) [Ratio] 14.4 % Normal 11.0-15.0 [facility] Comment on above: Performed By: #### C BC #### [facility] [address] [place] [address] Dr. Manda York Hematocrit (Bld) [Volume fraction] 37.2 % Normal 36.0-48.0 [facility] Comment on above: Performed By: #### C BC #### [facility] [address] [place] [address] Dr. Manda York Hemoglobin (Bld) [Mass/Vol] 12.3 g/dL Normal 12.0-16.0 [facility] Comment on above: Performed By: #### C BC #### [facility] [address] [place] [address] Dr. Manda York IG # 0.02 10e3/ul Normal 0.00-0.03 [facility] Comment on above: Performed By: #### C BC #### [facility] [address] [place] [address] Dr. Manda York IG % 0.2 % Normal 0.0-0.5 [facility] Comment on above: Performed By: #### C BC #### [facility] [address] [place] [address] Dr. Manda York LYMPH # 2.1 103/ul Normal 1.2-3.8 [facility] Comment on above: Performed By: #### C BC #### [facility] [address] [place] [address] Dr. Manda York Lymphocytes/100 WBC (Bld) 26.4 % Normal 20.5-60.0 [facility] Comment on above: Performed By: #### C BC #### [facility] [address] [place] [address] Dr. Manda York MANUAL DIFF REQ NO Normal [facility] Comment on above: Performed By: #### C BC #### [facility] [address] [place] [address] Dr. Manda York MCH (RBC) [Entitic mass] 29.2 pg Normal 26.7-34.0 [facility] Comment on above: Performed By: #### C BC #### [facility] [address] [place] [address] Dr. Manda York MCHC (RBC) [Mass/Vol] 33.1 g/dL Normal 29.9-35.2 [facility] Comment on above: Performed By: #### C BC #### [facility] [address] [place] [address] Dr. Manda York MCV (RBC) [Entitic vol] 88.4 fL Normal 81.0-99.0 [facility] Comment on above: Performed By: #### C BC #### [facility] [address] [place] [address] Dr. Manda York MONO # 0.5 103/ul Normal 0.3-0.8 [facility] Comment on above: Performed By: #### C BC #### [facility] [address] [address] [address] Manda York Monocytes/100 WBC (Bld) 6.7 % Normal 1.7-12.0 [facility] Comment on above: Performed By: #### C BC #### [facility] [address] [place] [address] Dr. Manda York NEUT # 5.2 103/ul Normal 1.4-6.5 [facility] Comment on above: Performed By: #### C BC #### [facility] [address] [place] [address] Dr. Manda York Neutrophils/100 WBC (Bld) 64.0 % Normal 43.0-75.0 [facility] Comment on above: Performed By: #### C BC #### [facility] [address] [place] [address] Dr. Manda York Platelet mean volume (Bld) [Entitic vol] 10.5 fL Normal 9.5-13.5 [facility] Comment on above: Performed By: #### C BC #### [facility] [address] [place] [address] Dr. Manda York PLT 265 103/ul Normal 150-450 [facility] Comment on above: Performed By: #### C BC #### [facility] [address] [place] [address] Dr. Manda York RBC 4.21 106/ul Normal 4.20-5.40 [facility] Comment on above: Performed By: #### C BC #### [facility] [address] [place] [address] Dr. Manda York WBC 8.1 103/ul Normal 4.0-11.0 [facility] Comment on above: Performed By: #### C BC #### [facility] [address] [place] [address] Dr. Manda York CRPon 10-03-2021 CRP [Mass/Vol] mg/L Normal <=1.0 [facility] Comment on above: Performed By: #### F T4 #### [facility] [address] [address] [address] Manda York SED RATE [facility] 2021 SED RATE 34 mm/hr Critically high <=20 [facility] Comment on above: Performed By: #### C BC #### [facility] [address] [address] [address] Manda York CHLORIDE (POC)Ordered By: Jae Holley on 10-07-2020 Chloride [Moles/Vol] 106 mmol/L 98 - 10 7 mmol/L [employer] Phone: Catheterization and angiogra phy procedure details panelOrdered By: Jaren Holley on 10-07-2020 Cardiac Diagnostic Report Demographics Patient TERA Torres Date of Study 10/07/2020 Name Date of 1980 Gender Female Age 40 year(s) Race Room [id number]^GINO Height: 67 inch, 170.18 cm Number Corporate [id number] Weight: 234 pounds, 106.1 kg ID # Patient [id number] BSA: 2.16 m^2 BMI: 36.65 kg/m^2 Acct # MR # [id number] Performing Jaren Holley Physician Referring # Physician [...] LV function assessed as:Normal. Ejection Fraction + -----+---+ !Method !EF%! + -----+---+ !LV gram !55 ! + -----+---+ Procedure Data Procedure Start Time: 10/07/2020 10:25. [...] Right coronary angiography. Contrast Material: - Isovue 11233 ml Fluoroscopy Time: Diagnostic: 2:12 minutes. Total: [...] assessed as CCS II according to the [place] clinical classification. Hemodynamics Condition: Baseline Room Air Estimated: 246.52Heart Rate: 103 bpm Pressure +-----+ ---------+ !Site !Pressure ! +-----+ ---------+ !AO !106/68 (86) ! +-----+ ---------+ !AO !104/71 (87) ! +-----+ ---------+ !AO !112/66 (86) ! +-----+ ---------+ !LV !126/0 ,1 ! +-----+ ---------+ !LV !126/0 ,5 ! +-----+ ---------+ Valve Gradients and Areas + +--------- +---------+---------+- ---------+---------+-- ---------+ !Valve !Peak !Mean !Area !Index !Flow !Source ! + +--------- +---------+---------+- ---------+---------+-- ---------+ !Aortic (more content not included)... Mosec, Mobile Secretary Work Phone: [employer] Incoming Cardio Results From [facility] - 10/07/2020 10:37 AM EDT Cardiac Diagnostic Report Demographics Patient TERA Torres Date of Study 10/07/2020 Name Date of 1980 Gender Female Age 40 year(s) Race Room [id number]^LEYDI^JAREN Height: 67 inch, 170.18 cm Number Corporate [id number] Weight: 234 pounds, 106.1 kg ID # Patient [id number] BSA: 2.16 m^2 BMI: 36.65 kg/m^2 Acct # MR # [id number] Performing Jaren Holley Physician Referring # Physician [...] LV function assessed as:Normal. Ejection Fraction + -----+--- + !Method !EF%! + -----+--- + !LV gram !55 ! + -----+--- + Procedure Data Procedure Start Time: 10/07/2020 [...] Right coronary angiography. Contrast Material: - Isovue 60099 ml Fluoroscopy Time: Diagnostic: 2:12 minutes. Total: [...] assessed as CCS II according to the [place] clinical classification. Hemodynamics Condition: Baseline Room Air Estimated: 246.52Heart Rate: 103 bpm Pressure +-----+ --------- + !Site !Pressure ! +-----+ --------- + !AO !106/68 (86) ! +-----+ --------- + !AO !104/71 (87) ! +-----+ --------- + !AO !112/66 (86) ! +-----+ --------- + !LV !126/0 ,1 ! +-----+ --------- + !LV !126/0 ,5 ! +-----+ --------- + Valve Gradients and Areas + +--------- +---------+---------+- ---------+---------+-- --------- + !Valve !Peak !Mean !Area !Index !Flow !Source ! + +--------- +---------+---------+- ---------+---------+-- --------- + !Aortic !16 !12 ! ! ! ! ! + +--------- +---------+---------+- ---------+---------+-- --------- + !Aortic !16 !12 ! ! ! ! ! + +--------- +---------+---------+- ---------+---------+-- --------- + Shunts Oxygen Values O2 Wglttyac408.4O2 Xvxzqeepooc951.52 [employer] Phone: [employer] Phone: [employer] Phone: Creatinine W/GFR Point of Ca reOrdered By: Jaren Holley on 10-07-2020 Creatinine [Mass/Vol] 0.64 mg/dL 0.51 - 1.19 mg/dL [employer] Phone: GFR Non- >60 >60 mL/min [employer] Phone: GFR/1.73 sq M.predicted MDRD (S/P/Bld) [Vol rate/Area] mL/min/{1.73_m2} >60 mL/min [employer] Phone: GFR/1.73 sq M.predicted MDRD (S/P/Bld) [Vol rate/Area] [employer] Phone: Comment on above: Average GFR for 40-4 9 years old: 99 mL/min/1.73sq m Chronic Kidney Disease: <60 mL/min/1.73sq m Kidney failure: <15 mL/min/1.73sq m eGFR calculated using average adult body mass. Additional eGFR calculator available at: http://www.PasswordBox/multiple_crcl_2012.htm Hemoglobin and hematocrit, b loodOrdered By: Jaren Holley on 10-07-2020 Hematocrit (Bld) [Volume fraction] 41 % 36 - 46 % [employer] Phone: Hemoglobin (Bld) [Mass/Vol] 14.0 g/dL 12.0 - 16.0 g/dL [employer] Phone: No Panel InformationOrdered By: Jaren Holley on 10-07-2020 [employer] Phone: POCT GlucoseOrdered By: Anu Holley on 10-07-2020 Glucose [Mass/Vol] 98 mg/dL 74 - 100 mg/dL [employer] Phone: POCT urine pregnancyOrdered By: Jaren Holley on 10-07-2020 Beta HCG ( test) Ql (U) Negative NEGATIVE [employer] Phone: Comment on above: Specimens with hCG l evels near the threshold of the test (25 mIU/mL) may give a negative or indeterminate result. In such cases, another test should be performed with a new specimen in 48-72 hours. If early is suspected clinically in this setting, correlation with quantitative serum b-hCG level is suggested. [employer] Phone: POTASSIUM (POC)Ordered By: Al Holley on 10-07-2020 Potassium [Moles/Vol] 3.8 mmol/L 3.5 - 4.5 mmol/L [employer] Phone: Platelet Counton 10-07-2020 Platelets (Bld) [#/Vol] 299 10*3/uL Normal 138-[address] [facility] Comment on above: Performed By: #### P LT #### [employer] [address] [place] [address] Tempering Machine Operator: Rick Serrano MD Platelet countOrdered By: Jae Holley on 10-07-2020 Platelets (Bld) [#/Vol] 299 10*3/uL [employer] Phone: [employer] Phone: SODIUM (POC)Ordered By: Anu Holley on 10-07-2020 Sodium [Moles/Vol] 141 mmol/L 138 - 146 mmol/L [employer] Phone: Coding Summary.on 01-12-2019 Coding Summary. CODING DATE: 01/12/2019 FINAL [facility] STATUS: Home (Routine DC) PAYOR: Medicaid [...] mass index (BMI) 34.0-34.9, adult Z79.899 Other group home (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 However, the narrative phrase printed from the coding software may appear abbreviated, or result in slightly different terminology. Coded By: Luz Judd Date Saved: 01/12/2019 10:25 am [facility] Coding Summary. CODING DATE: 01/12/2019 FINAL [facility] STATUS: Home (Routine DC) PAYOR: Medicaid [...] mass index (BMI) 34.0-34.9, adult Z79.899 Other group home (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 However, the narrative phrase printed from the coding software may appear abbreviated, or result in slightly different terminology. Revised Coded By: Luz Judd Revised Date Saved: 01/12/2019 10:25 am [facility] XR Chest 2 Viewson 9 XR Chest [...] M.D. Transcribed by: BILL Technologist: ZOILA Kenney [facility] Auto Diffon 01-11-2019 Basophils/100 WBC (Bld) 0.8 % Normal 0.0-2.[address] [facility] Comment on above: Order Comment: Order Added by Discern Expert. Performed By: #### 1 [id number], 4950683, 1516583, 8273768, 66461862, 2125596, 1112020, 4136608, 8137488, 95548646, 8695699 #### [facility] [address] [place] [address] Basophils/Leukocytes Auto (Bld) [Pure # fraction] 0.1 E9/L Normal 0.0-0.[address] [facility] Comment on above: Order Comment: Order Added by Discern Expert. Performed By: #### 1 4876033, 1606770, 3372285, 8464789, 15254172, 6001843, 3586020, 7988444, 0737569, 50911504, 6135538 #### [facility] [address] [place] [address] Eosinophils/100 WBC (Bld) 1.9 % Normal 0.0-8.[address] [facility] Comment on above: Order Comment: Order Added by Discern Expert. Performed By: #### 1 4827215, 1190030, 8531349, 6637907, 23668940, 1073268, 9735413, 8431334, 0087989, 56578711, 5437740 #### [facility] [address] [place] [address] Eosinophils/Leukocyte s Auto (Bld) [Pure # fraction] 0.1 E9/L Normal 0.0-0.[address] [facility] Comment on above: Order Comment: Order Added by Discern Expert. Performed By: #### 1 7741777, 2279434, 7212134, 1166634, 24924741, 4734616, 4982592, 7350821, 5024099, 04035084, 7543780 #### [facility] [address] [place] [address] Lymphocytes/100 WBC (Bld) 28.0 % Normal 14.0-50.[address] [facility] Comment on above: Order Comment: Order Added by Discern Expert. Performed By: #### 1 3467027, 2785362, 4352711, 6851089, 13711060, 2100517, 5482589, 4409595, 5548328, 15087294, 8666051 #### [facility] [address] [place] [address] Lymphocytes/Leukocyte s Auto (Bld) [Pure # fraction] 2.2 E9/L Normal 1.0-4.[address] [facility] Comment on above: Order Comment: Order Added by Discern Expert. Performed By: #### 1 1987579, 1210723, 6817659, 7144381, 21448183, 3144195, 1317705, 5083192, 1042865, 75980903, 9680972 #### [facility] [address] [place] [address] Monocytes/100 WBC (Bld) 7.0 % Normal 4.0-14.[address] [facility] Comment on above: Order Comment: Order Added by Discern Expert. Performed By: #### 1 4859756, 1776629, 4013431, 1590122, 46707089, 2037576, 0759163, 6512143, 2381093, 17834736, 1177988 #### [facility] [address] [place] [address] Monocytes/Leukocytes Auto (Bld) [Pure # fraction] 0.6 E9/L Normal 0.2-1.[address] [facility] Comment on above: Order Comment: Order Added by Discern Expert. Performed By: #### 1 9976064, 2057760, 9207145, 5049644, 13229950, 3603066, 1705731, 8948590, 5177998, 22134713, 4863155 #### [facility] [address] [place] [address] Neutrophils/100 WBC (Bld) 62.3 % Normal 36.0-75.[address] [facility] Comment on above: Order Comment: Order Added by Discern Expert. Performed By: #### 1 3800601, 2741715, 2521291, 4981103, 99704782, 3257341, 1557491, 1446077, 1334392, 31154381, 3283731 #### [facility] [address] [place] [address] Neutrophils/Leukocyte s Auto (Bld) [Pure # fraction] 4.9 E9/L Normal 2.0-7.[address] [facility] Comment on above: Order Comment: Order Added by Discern Expert. Performed By: #### 1 3908882, 4983686, 6143527, 5768158, 61622991, 5396755, 9728688, 5423260, 3689080, 83996087, 9444908 #### [facility] [address] [place] [address] BMPon 01-11-2019 Creatinine [Mass/Vol] 0.7 mg/dL Normal 0.5-1.3 [facility] Comment on above: Performed By: #### 1 2256598, 3729657, 4499031, 8780518, 98893387, 1131493, 0804942, 3671729, 3748507, 34335012, 2744385 #### [facility] [address] [place] [address] Urea nitrogen [Mass/Vol] 11 mg/dL Normal 5-[address] [facility] Comment on above: Performed By: #### 1 9747167, 8041248, 4377108, 3621770, 95094533, 3578191, 1701301, 9986535, 5225938, 53548680, 6990328 #### [facility] [address] [place] [address] Urea nitrogen/Creatinine [Mass ratio] 16 No Units Normal 10-[address] [facility] Comment on above: Performed By: #### 1 9427368, 4488485, 4345364, 1278135, 22598823, 2612328, 2777267, 8283285, 1333563, 37939694, 6432157 #### [facility] [address] [place] [address] Anion gap [Moles/Vol] 14 mmol/L Normal 6-16 [facility] Comment on above: Performed By: #### 1 1441174, 7457036, 1083480, 8479739, 96676363, 9156633, 0470716, 1060473, 1900036, 29837569, 9500758 #### [facility] [address] [place] [address] Calcium [Mass/Vol] 8.9 mg/dL Normal 8.9-11.[address] [facility] Comment on above: Performed By: #### 1 3321049, 7359930, 0405935, 2359745, 70943208, 3262424, 7598056, 4152921, 4514214, 56216099, 5744113 #### [facility] [address] [place] [address] Chloride [Moles/Vol] 107 mmol/L Normal 101-111 [facility] Comment on above: Performed By: #### 1 8172226, 6869028, 2664511, 1377007, 42120929, 6800839, 8599214, 6131893, 0108894, 43150013, 1762699 #### [facility] [address] [place] [address] CO2 [Moles/Vol] 22 mmol/L Normal 21-31 [facility] Comment on above: Performed By: #### 1 8419185, 6956619, 0015083, 8577614, 96524469, 8984084, 5143599, 2775847, 7374836, 78213358, 1261350 #### [facility] [address] [place] [address] Glucose [Mass/Vol] 122 mg/dL Normal 55-[address] [facility] Comment on above: Result Comment: If t his glucose result represents a fasting glucose, interpretation should refer to the following reference range: 55-99 mg/dL Performed By: #### 1 8657278, 1935432, 1973149, 8841600, 73471572, 2641734, 9276766, 6430961, 8087514, 46009986, 7546694 #### [facility] [address] [place] [address] Potassium [Moles/Vol] 3.8 mmol/L Normal 3.5-5.3 [facility] Comment on above: Performed By: #### 1 0031877, 2270062, 4352034, 6204208, 22992469, 7285194, 3423207, 2150037, 5549738, 00949259, 0843730 #### [facility] [address] [place] [address] Sodium [Moles/Vol] 139 mmol/L Normal 135-[address] [facility] Comment on above: Performed By: #### 1 6205194, 4701326, 5494821, 0006093, 35130250, 1944295, 5136394, 3342933, 4688027, 94633538, 7055230 #### [facility] [address] [place] [address] CBC w/ Auto Diffon 9 Erythrocyte distribution width (RBC) [Ratio] 14.0 % Normal 10.9-14.[address] [facility] Comment on above: Performed By: #### 1 8758481, 1984405, 3459934, 4138421, 03706155, 7217368, 7895401, 1555466, 3612475, 88917966, 3726461 #### [facility] [address] [place] [address] Hematocrit (Bld) [Volume fraction] 39.9 % Normal 34.0-46.[address] [facility] Comment on above: Performed By: #### 1 9943739, 1213074, 5557423, 2370294, 46354980, 7879887, 2821675, 0258396, 3639066, 40118056, 8546652 #### [facility] [address] [place] [address] Hemoglobin (Bld) [Mass/Vol] 13.5 g/dL Normal 12.0-16.[address] [facility] Comment on above: Performed By: #### 1 1744356, 4991202, 3525192, 3562096, 90338593, 6329874, 3496548, 3893188, 6070379, 59819172, 4013788 #### [facility] [address] [place] [address] MCH (RBC) [Entitic mass] 29.4 pg Normal 27.0-34.[address] [facility] Comment on above: Performed By: #### 1 4275179, 3389776, 8424913, 7789354, 18824110, 7478376, 7800713, 3365989, 6275820, 29545071, 9036105 #### [facility] [address] [place] [address] MCHC (RBC) [Mass/Vol] 33.7 g/dL Normal 33.3-35.7 [facility] Comment on above: Performed By: #### 1 3589455, 8932314, 5366265, 1510388, 13124063, 4965036, 7847518, 2669277, 4684702, 99652893, 2996360 #### [facility] [address] [place] [address] MCV (RBC) [Entitic vol] 87.4 fL Normal 80.0-100.[address] [facility] Comment on above: Performed By: #### 1 3957262, 2997935, 9517227, 6551333, 51897117, 3222867, 3261404, 5815293, 1100181, 94325159, 7531256 #### [facility] [address] [place] [address] Platelet mean volume (Bld) [Entitic vol] 8.5 fL Normal 6.4-10.[address] [facility] Comment on above: Performed By: #### 1 5038124, 5557606, 1190893, 1408184, 08930163, 2081252, 3757950, 8876056, 7631760, 08777865, 6813863 #### [facility] [address] [place] [address] Platelets (Bld) [#/Vol] 244.0 E9/L Normal 150.0-500.[address] [facility] Comment on above: Performed By: #### 1 9230360, 7784582, 3944499, 7089213, 20873769, 0143146, 6094928, 2402209, 1403049, 44607410, 7957773 #### [facility] [address] [place] [address] RBC (Bld) [#/Vol] 4.6 E12/L Normal 4.3-5.[address] [facility] Comment on above: Performed By: #### 1 6809893, 7188753, 5100763, 4049194, 91827988, 8983775, 6854681, 5909571, 5160022, 96310632, 6527732 #### [facility] [address] [place] [address] WBC corrected for nucl RBC Auto (Bld) [#/Vol] 7.9 E9/L Normal 4.0-11.[address] [facility] Comment on above: Performed By: #### 1 9352909, 2833365, 2934167, 1062573, 61053961, 1229831, 5635765, 9015778, 9022178, 71019275, 7189581 #### [facility] [address] [place] [address] D-Dimeron 01-11-2019 Fibrin D-dimer FEU (PPP) [Mass/Vol] 265 ng/mL Normal 215-[address] [facility] Comment on above: Result Comment: This [...] infections Liver cirrhosis Performed By: #### 1 3574081, 1310013, 0469850, 1246678, 17959707, 2620321, 6462031, 6307973, 5766133, 02213272, 0796614 #### [facility] [address] [place] [address] ED Clinical Summaryon 2018 ED Clinical Summary [address] [address] ED Clinical Summary Person Information Name: JONES HALEY Roger/[facility] Age: 38 Years : 1980 12:00 AM Sex: Female Language: Bermudian PCP: Charles Mitchell DO Marital Status: Single Phone: [phone] Visit Id: Visit Reason: Chest pain; CHEST [...] 01/11/2019 6:42 PM 01/11/2019 6:42 PM ADDRESS: [address] [place] [id number] PHYS DOC NOTES: MEDICAL INFORMATION: Prescriptions Given: PATIENT EDUCATION INFORMATION: Instructions: Smoking Cessation; Chest Pain (Nonspecific) Follow up: With: Address: When: [address] [id number] Business (1) Within 2 to 3 days Comments: Return to ED if symptoms worsen DIAGNOSIS: 1:Chest pain Normal [facility] ED Note-Physicianon 01-12-20 ED Note-Physician Basic [...] prescription medications Follow-up With When Contact Information [facility] Within 2 to [address] [place] [address] [facility] (1) Additional Instructions: Return [...] Lymph Auto: 28 % (01/11/19 16:46:00 EDT) Dubois Auto: 7 % (01/11/19 16:46:00 EDT) Eos Auto: 1.9 % (01/11/19 16:46:00 EDT) Basophil Auto: 0.8 % (01/11/19 16:46:00 EDT) Neutro Absolute: 4.9 E9/L (01/11/19 16:46:00 EDT) Lymph Absolute: 2.2 E9/L (01/11/19 16:46:00 EDT) Dubois Absolute: 0.6 E9/L (01/11/19 16:46:00 EDT) Eos [...] Results EC01/11/19: SINUS RHYTHM RATE 84, NORMAL MO AND QRS, NO ST ELEVATION OR DEPRSSION, NORMAL AXIS, NORMAL QTC NORMAL ECG Signed By: Orin Browne DO 01/11/2019 15:54:[address] [facility] Comment on above: Result Comment: Elec [...] and skin patches. Some may be available [id number]-hwgrduz and others require a prescription. ? Antidepressant [...] Document Reviewed: 08/18/2012 ExitCare? Patient Information ?2014 [employer]. This information is not intended to replace [...] Document Reviewed: 12/13/2008 ExitCare? Patient Information ?2014 [employer]. This information is not intended to replace advice given to you by your health care provider. Make sure you discuss any questions you have with your health care provider. Normal [facility] ED Patient Summaryon 019 ED Patient Summary [address] [address] Patient Discharge Instructions Person Information Name: JONES HALEY Age: 38 Years Arrival Date: 01/11/2019 3:44 PM Discharge Diagnosis: 1:Chest pain Primary Care Physician: Charles Mitchell DO Provider Information Primary Provider: Orin Browne DO Advanced Stummel Selector:None The exam and treatment you received in the Emergency Department were for an urgent problem and are not intended as complete care. It is important that you follow up with a doctor, nurse practitioner, or physician?s commissary assistant for ongoing care. If your symptoms [...] Follow-up Instructions: With: Address: When: Charles Mitchell [address] [place], [place] [address] Business (1) Within 2 to 3 days [...] opioids can be used to help relieve yzeefjfr-pu-gfunyo pain and are often prescribed following a [...] guidance from the Food and Drug Administration (www.fda.gov/Drugs/Res ourcesForFarooq). ? Visit www.cdc.gov/drugoverdo se to learn about the risks of opioids abuse and overdose. ? If you believe you may be struggling with addiction, tell your health social worker palliative care and ask for guidance or call [employer] National Helpline at 8-455-959-PSGH. v Source: US Department of Health and Human Services/Center for Disease Control & Prevention [facility] Medications Given: Medication Dose Route No medications found. Medication Information: Medications to Continue with No Changes Other Medications metformin (metformin 500 mg ER Tab) 250 Milligram By Mouth 2 times a day. Comment: Pharmacy Information: Thank you for choosing [facility] Patient Education Materials: Smoking Cessation Quitting smoking [...] and skin patches. Some may be available ndoz-xez-hqqftjt and others require a prescription. ? Antidepressant [...] Document Reviewed: 08/18/2012 ExitCare? Patient Information ?2014 [employer]. This information is not intended to replace [...] Document Reviewed: 12/13/2008 ExitCare? Patient Information ?2014 [employer]. This information is not intended to replace advice given to you by your health care provider. Make sure you discuss any questions you have with your health care provider. TERA Dorantes NICOLE B , have received the following patient education materials/instructions and have verbalized understanding: Patient Education Materials: Smoking Cessation; Chest Pain (Nonspecific) Follow-up Instructions: With: Address: When: [place] [address] [facility] () Within 2 to 3 days Comments: Return to ED if symptoms worsen Prescriptions: Patient Signature Date Clinician/Nurse Signature ___ Date 01/11/19 18:42:[address] [facility] Progress Note-Nurseon 2018 Progress Note-Nurse Pt explained dischar ge instructions and voiced understanding. Pt sts she will follow up with her PCP and denies any furthe questions at this time. Normal [facility] Troponin 0 Hr.on 01-11-2019 Troponin I.cardiac [Mass/Vol] ng/mL Normal <=0.[address] [facility] Comment on above: Result Comment: New Troponin Assay 10/05/13 KRISHNA [place] Cutoff value > or = 0.03 ng/mL in conjunction with clinical conditions of myocardial infarction. (www.escardio.org/guidelines) Performed By: #### 1 1007919, 0652517, 8085683, 5936141, 42107496, 3959809, 3317463, 6966784, 1459398, 04997852, 1858527 #### [facility] [address] [place] [address] eGFRon 01-11-2019 GFR/1.73 sq M predicted among blacks MDRD (S/P/Bld) [Vol rate/Area] mL/min/{1.73_m2} Normal >=[address] [facility] Comment on above: Order Comment: Order added by Discern Expert. Result Comment: eGFR is race adjusted. AA=. Performed By: #### 1 7595310, 3235073, 3569686, 8505787, 00733450, 0457984, 3351600, 2822704, 8252244, 13124001, 1104402 #### [facility] [address] [place] [address] GFR/1.73 sq M predicted among non-blacks MDRD (S/P/Bld) [Vol rate/Area] mL/min/{1.73_m2} Normal >=[address] [facility] Comment on above: Order Comment: Order added by Discern Expert. Result Comment: Narcotics Agent anthony kidney disease could be indicated at eGFR's of less than 60 mL/min/1.73m2. Kidney failure is indicated at less than 15 mL/min/1.73m2. Performed By: #### 1 6434305, 0997417, 0427143, 3877775, 13212009, 7488000, 5145798, 8650489, 2683551, 46861804, 4923428 #### [facility] [address] [place] [address] SPINE, LUMBOSACRAL CMPLT(TOOTIE DING)on 12-05-2018 SPINE, LUMBOSACRAL CMPLT(BENDING) Patient Name: JONES HALEY STUDY: SPINE, LUMBOSACRAL; CMPLT(BENDING); 12/05/2018 1:47 pm INDICATION: LUMBAR XR. COMPARISON: None. ACCESSION NUMBER(S): [id number] ORDERING CLINICIAN: JUAN LUIS RICHARDSON FINDINGS: No lumbar spine fracture. Scattered small endplate osteophytes. Vertebral body and disc space heights are are maintained. 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 No spondylolisthesis. No instability on flexion or extension. IMPRESSION: Degenerative changes of the lumbar spine without instability. Electronically signed by: EARNESTINE MANUEL MD [facility] [address] XR chest 2V*on 09-17-2018 XR chest 2V* [facility] Main Center [address] [place] [address] XRay Report Signed Patient: Jones Haley MR#: [id number] : 1980 Acct:[id number] Age/Sex: 37 / F ADM Date: 09/17/18 Loc: XDUCLY Room: Type: [facility] Attending Dr: Bettina COREAS Ordering Provider: Bettina [...] Simin Nelson M.D.09/17/2018 2:04 PM Dictation Location: [facility] Transcribed By: [facility] 09/17/18 1404 Dictated By: Simin Nelson MD 09/17/18 1403 Signed By: 09/17/18 1404 [facility] Coding Summary.on 09-15-2018 Coding Summary. CODING DATE: 09/15/2018 [facility] DSC STATUS: Home (Routine DC) PAYOR: Medicaid [...] F17.210 Nicotine dependence, cigarettes, uncomplicated Z79.899 Other group home (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 However, the narrative phrase printed from the coding software may appear abbreviated, or result in slightly different terminology. Coded By: Luz Judd Date Saved: 09/15/2018 07:[address] [facility] Auto Diffon 09-14-2018 Basophils/100 WBC (Bld) 0.6 % Normal 0.0-2.[address] [facility] Comment on above: Order Comment: Order Added by Discern Expert. Performed By: #### 1 0358318, 8850779, 1813975, 7057687, 31004987, 3502964, 8316141, 5747726, 2277996, 71622923, 6358827 #### [facility] [address] [place] [address] Basophils/Leukocytes Auto (Bld) [Pure # fraction] 0.1 E9/L Normal 0.0-0.[address] [facility] Comment on above: Order Comment: Order Added by Discern Expert. Performed By: #### 1 5590289, 0759993, 7179742, 2954883, 84663868, 7761463, 4776604, 6108252, 0695884, 83221474, 5093019 #### [facility] [address] [place] [address] Eosinophils/100 WBC (Bld) 2.2 % Normal 0.0-8.[address] [facility] Comment on above: Order Comment: Order Added by Discern Expert. Performed By: #### 1 1703007, 3651933, 1271098, 2469337, 52644963, 6127907, 9173048, 0507935, 6119453, 95723086, 7185762 #### [facility] [address] [place] [address] Eosinophils/Leukocyte s Auto (Bld) [Pure # fraction] 0.2 E9/L Normal 0.0-0.[address] [facility] Comment on above: Order Comment: Order Added by Discern Expert. Performed By: #### 1 9726325, 6727425, 2155824, 6669057, 96053732, 3583923, 3931937, 8009894, 1881064, 86218768, 0805267 #### [facility] [address] [place] [address] Lymphocytes/100 WBC (Bld) 30.6 % Normal 14.0-50.[address] [facility] Comment on above: Order Comment: Order Added by Discern Expert. Performed By: #### 1 8225348, 5236983, 4789039, 1132876, 98974256, 2589308, 0638220, 1696014, 1555216, 70868955, 7465119 #### [facility] [address] [place] [address] Lymphocytes/Leukocyte s Auto (Bld) [Pure # fraction] 3.0 E9/L Normal 1.0-4.[address] [facility] Comment on above: Order Comment: Order Added by Discern Expert. Performed By: #### 1 8110938, 6564325, 0258895, 9048287, 91213170, 7963937, 4437719, 9184192, 3142703, 87132607, 1834714 #### [facility] [address] [place] [address] Monocytes/100 WBC (Bld) 7.2 % Normal 4.0-14.[address] [facility] Comment on above: Order Comment: Order Added by Discern Expert. Performed By: #### 1 6913276, 9783403, 4748339, 8923625, 53754966, 0877396, 2650251, 0116820, 5469718, 47519347, 2340440 #### [facility] [address] [place] [address] Monocytes/Leukocytes Auto (Bld) [Pure # fraction] 0.7 E9/L Normal 0.2-1.[address] [facility] Comment on above: Order Comment: Order Added by Discern Expert. Performed By: #### 1 8719800, 3151565, 2392206, 7661693, 33526811, 3799375, 0907685, 4934901, 0737119, 83766550, 2643024 #### [facility] [address] [place] [address] Neutrophils/100 WBC (Bld) 59.4 % Normal 36.0-75.[address] [facility] Comment on above: Order Comment: Order Added by Discern Expert. Performed By: #### 1 8074757, 1834464, 9836697, 2485856, 80496567, 5694004, 6450088, 4089125, 1780439, 40248088, 7394957 #### [facility] [address] [place] [address] Neutrophils/Leukocyte s Auto (Bld) [Pure # fraction] 5.9 E9/L Normal 2.0-7.[address] [facility] Comment on above: Order Comment: Order Added by Discern Expert. Performed By: #### 1 2099785, 9054744, 7458550, 5517431, 98886251, 9774173, 9212770, 9637255, 9664698, 73251916, 9203253 #### [facility] [address] [place] [address] BMP 09-14-2018 Creatinine [Mass/Vol] 0.6 mg/dL Normal 0.5-1.3 [facility] Comment on above: Performed By: #### 1 0186531, 9563368, 1389664, 8022117, 31570553, 1005608, 5957136, 6216642, 1008470, 13531631, 2402959 #### [facility] [address] [place] [address] Urea nitrogen [Mass/Vol] 15 mg/dL Normal 5-[address] [facility] Comment on above: Performed By: #### 1 9793035, 5242013, 6367166, 3089838, 59561140, 7086197, 5936366, 4188553, 6215577, 22155285, 8392295 #### [facility] [address] [place] [address] Urea nitrogen/Creatinine [Mass ratio] 25 No Units High 10-[address] [facility] Comment on above: Performed By: #### 1 9931623, 6890986, 6778417, 4748409, 77292977, 7319888, 6730961, 2898578, 5436213, 30878124, 4008297 #### [facility] [address] [place] [address] Anion gap [Moles/Vol] 13 mmol/L Normal 6-16 [facility] Comment on above: Performed By: #### 1 6947307, 0485714, 3458522, 7339612, 66073978, 4679366, 0577880, 6326908, 2315450, 04884658, 9799823 #### [facility] [address] [place] [address] Calcium [Mass/Vol] 9.5 mg/dL Normal 8.9-11.[address] [facility] Comment on above: Performed By: #### 1 6400374, 8378088, 7218317, 3847415, 50936857, 7571696, 6218721, 6257351, 3420345, 65751736, 9534643 #### [facility] [address] [place] [address] Chloride [Moles/Vol] 103 mmol/L Normal 101-111 [facility] Comment on above: Performed By: #### 1 4623090, 8808526, 7208139, 7027902, 55860595, 1161411, 0269338, 7534520, 6479260, 62696221, 5863665 #### [facility] [address] [place] [address] CO2 [Moles/Vol] 24 mmol/L Normal 21-31 [facility] Comment on above: Performed By: #### 1 6862899, 5364698, 1552183, 7096370, 71977834, 2496521, 3576853, 1129555, 6256090, 76578772, 7381667 #### [facility] [address] [place] [address] Glucose [Mass/Vol] 102 mg/dL Normal 55-[address] [facility] Comment on above: Result Comment: If t his glucose result represents a fasting glucose, interpretation should refer to the following reference range: 55-99 mg/dL Performed By: #### 1 6824041, 5485842, 0061294, 8777933, 68834478, 9212856, 7349510, 7740422, 9290231, 66292778, 2379224 #### [facility] [address] [place] [address] Potassium [Moles/Vol] 3.6 mmol/L Normal 3.5-5.3 [facility] Comment on above: Performed By: #### 1 4312228, 3932967, 0567333, 0110806, 56577621, 4463523, 6292194, 2371485, 9104018, 63747076, 5796898 #### [facility] [address] [place] [address] Sodium [Moles/Vol] 136 mmol/L Normal 135-[address] [facility] Comment on above: Performed By: #### 1 5747164, 3553714, 9207760, 8519047, 18486597, 0544699, 7157304, 2253550, 9957164, 37057919, 1642424 #### [facility] [address] [place] [address] CBC w/ Auto Diffon 9 Erythrocyte distribution width (RBC) [Ratio] 14.2 % Normal 10.9-14.[address] [facility] Comment on above: Performed By: #### 1 9310800, 8988597, 2344546, 4152789, 97600074, 7927734, 2188364, 2347063, 3250869, 29524311, 8883871 #### [facility] [address] [place] [address] Hematocrit (Bld) [Volume fraction] 39.4 % Normal 34.0-46.[address] [facility] Comment on above: Performed By: #### 1 6529602, 9653296, 3558489, 4205115, 99929701, 5792418, 0976162, 3368448, 5395746, 13065210, 2249542 #### [facility] [address] [place] [address] Hemoglobin (Bld) [Mass/Vol] 13.3 g/dL Normal 12.0-16.[address] [facility] Comment on above: Performed By: #### 1 8375720, 4838320, 6268337, 3338146, 30776253, 8902581, 6806452, 4208805, 6875714, 45924692, 7704820 #### [facility] [address] [place] [address] MCH (RBC) [Entitic mass] 29.2 pg Normal 27.0-34.[address] [facility] Comment on above: Performed By: #### 1 5503732, 1990938, 9821652, 9072706, 77890113, 8032200, 3063381, 5441294, 8869345, 53032054, 6304680 #### [facility] [address] [place] [address] MCHC (RBC) [Mass/Vol] 33.8 g/dL Normal 33.3-35.7 [facility] Comment on above: Performed By: #### 1 6772617, 1144546, 6878007, 5133567, 96492286, 9230503, 7250077, 0163410, 9084851, 23915664, 3411493 #### [facility] [address] [place] [address] MCV (RBC) [Entitic vol] 86.6 fL Normal 80.0-100.[address] [facility] Comment on above: Performed By: #### 1 3116409, 2705382, 6710186, 6056310, 44828874, 6203420, 0272176, 0634409, 0203535, 75124655, 9395344 #### [facility] [address] [place] [address] Platelet mean volume (Bld) [Entitic vol] 8.8 fL Normal 6.4-10.[address] [facility] Comment on above: Performed By: #### 1 7852310, 4863939, 6882341, 5345378, 64759571, 8720661, 2890529, 2760801, 5703281, 63816746, 4615844 #### [facility] [address] [place] [address] Platelets (Bld) [#/Vol] 307.0 E9/L Normal 150.0-500.[address] [facility] Comment on above: Performed By: #### 1 5291576, 6416149, 6274231, 5540602, 80015021, 3094877, 7636167, 2429148, 9128967, 93434911, 7195099 #### [facility] [address] [place] [address] RBC (Bld) [#/Vol] 4.6 E12/L Normal 4.3-5.[address] [facility] Comment on above: Performed By: #### 1 7296677, 8327373, 3445344, 9358250, 69283830, 9347588, 8835269, 8525383, 5685429, 85439223, 8233285 #### [facility] [address] [place] [address] WBC corrected for nucl RBC Auto (Bld) [#/Vol] 9.9 E9/L Normal 4.0-11.[address] [facility] Comment on above: Performed By: #### 1 1083631, 7013210, 0726394, 6748887, 43422844, 4222929, 3131219, 8893006, 6636708, 59748626, 5091779 #### [facility] [address] [place] [address] CKon 09-14-2018 CK [Catalytic activity/Vol] 53 Int._Unit/L Normal 14-[address] [facility] Comment on above: Performed By: #### 1 9507150, 4998676, 9474959, 6295136, 65179146, 2647282, 6378393, 4596167, 4343264, 34199339, 1815999 #### [facility] [address] [place] [address] ED Clinical Summaryon 2018 ED Clinical Summary [address] [address] ED Clinical Summary Person Information Name: JONES HALEY [place] Age: 37 Years : 1980 12:00 AM Sex: Female Language: Bermudian PCP: Charles Mitchell DO Marital Status: Single Phone: [phone] Visit Id: Visit Reason: Anxiety; Paraesthesia; NUMBNESS [...] 09/14/2018 12:17 AM 09/14/2018 12:17 AM ADDRESS: [address] [place] [address] [place] [id number] PHYS DOC NOTES: MEDICAL INFORMATION: Prescriptions Given: Prescription Display gabapentin (gabapentin 100 mg Cap) 100 mg = 1 cap(s), Oral, Daily, X 7 day(s), # 7 cap(s), Refills(s) 0, Pharmacy: [facility] gabapentin (gabapentin 100 mg Cap) 100 mg = 1 cap(s), Oral, Daily, X 7 day(s), # 7 cap(s), Refills(s) 0, Pharmacy: [facility]/pharmacy #6177 magnesium oxide (magnesium oxide 400 mg Tab) 400 mg = 1 tab(s), Oral, Daily, X 7 day(s), # 7 tab(s), Refills(s) 0, Pharmacy: [facility] magnesium oxide (magnesium oxide 400 mg Tab) 400 mg = 1 tab(s), Oral, Daily, X 7 day(s), # 7 tab(s), Refills(s) 0, Pharmacy: [facility]/pharmacy #6177 Home Meds Display metformin (metformin 500 mg ER Tab) 250 mg, Oral, BID, Refills(s) 0 PATIENT EDUCATION INFORMATION: Instructions: Paresthesia, Djyo-ce-Anlc; Restless Legs Syndrome Follow up: With: Address: When: Sayda Kelley [address] [address] Business (1) Within 1 to 2 days Comments: neurologist you may also follow up with him With: Address: When: [address] [address] Business (1) Within 1 to 2 days Comments: Return to ED if symptoms worsen DIAGNOSIS: 1:Restless leg syndrome Normal [facility] ED Note-Nursingon 09-14-2018 ED Note-Nursing Pt up to RR, gait steady. Normal [facility] ED Note-Nursing Aware of need for urine specimen, denies urge at present, states will notify when able to produce sample, will monitor. Normal [facility] ED Note-Physicianon 09-15-19 ED Note-Physician Basic [...] day(s), # 7 cap(s), Refills(s) 0, Pharmacy: [facility]/pharmacy #6177 magnesium oxide, 400 mg = 1 tab(s), Oral, Daily, X 7 day(s), # 7 tab(s), Refills(s) 0, Pharmacy: [facility]/pharmacy #6177 Sodium Chloride 0.9% intravenous solution [...] Sayda Kelley Within 1 to 2 days [place] [address] [place] [address]- Business (1) Additional Instructions: neurologist you may also follow up with him Charles Mitchell Within 1 to [address] [place] [address]- Business (1) Additional Instructions: Return to ED if symptoms worsen Patient Education Paresthesia, Dnyd-bi-Vdjr Restless Legs Syndrome Problem List/Past Medical History [...] Lymph Auto: 30.6 % (09/13/18 23:03:00 EDT) Dubois Auto: 7.2 % (09/13/18 23:03:00 EDT) Eos Auto: 2.2 % (09/13/18 23:03:00 EDT) Basophil Auto: 0.6 % (09/13/18 23:03:00 EDT) Neutro Absolute: 5.9 E9/L (09/13/18 23:03:00 EDT) Lymph Absolute: 3 E9/L (09/13/18 23:03:00 EDT) Dubois Absolute: 0.7 E9/L (09/13/18 23:03:00 EDT) Eos [...] Diagnostic Results No qualifying data available. Normal [facility] Comment on above: Result Comment: Elec [...] Document Reviewed: 01/29/2012 ExitCare? Patient Information ?2015 [employer], [facility]. This information is not intended [...] ? Drawing. ? Crawling. ? Worming. ? [place]. ? Tingling. ? Pins and needles. ? [...] Document Reviewed: 08/06/2011 ExitCare? Patient Information ?2015 [facility], [facility]. This information is not intended to replace advice given to you by your health care provider. Make sure you discuss any questions you have with your health care provider. Normal [facility] ED Patient Summaryon 019 ED Patient Summary [address] [address] Patient Discharge Instructions Person Information Name: JONES HALEY Age: 37 Years Arrival Date: 09/13/2018 10:16 PM Discharge Diagnosis: 1:Restless leg syndrome Primary Care Physician: Charles Mitchell DO Provider Information Primary Provider: Génesis Lozoya DO Advanced Stum[employer] Selector:None The exam and treatment you received in the Emergency Department were for an urgent problem and are not intended as complete care. It is important that you follow up with a doctor, nurse practitioner, or physician?s commissary assistant for ongoing care. If your symptoms [...] Follow-up Instructions: With: Address: When: Sayda Paez[facility], [address] [place] [address] Business (1) Within 1 to 2 days Comments: neurologist you may also follow up with him With: Address: When: Charles Mitchell [address] [place] [address] Business (1) Within 1 to 2 days Comments: Return to ED if symptoms worsen In the event that this physician does not participate in your insurance network, please consult with your insurance company to find a nearby participating provider. Patient Education Materials: Paresthesia, Ttfe-lj-Zqgo; Restless Legs Syndrome A MESSAGE TO ALL PATIENTS REGARDING OPIOIDS PRESCRIPTION OPIOIDS: WHAT YOU NEED TO KNOW Prescription opioids can be used to help relieve lakxkyef-zp-ltucpj pain and are often prescribed following a [...] guidance from the Food and Drug Administration (www.fda.gov/Drugs/Res ourcesForYou). ? Visit www.cdc.gov/drugoverdo se to learn about the risks of opioids abuse and overdose. ? If you believe you may be struggling with addiction, tell your health social worker palliative care and ask for guidance or call [facility] National Helpline at 1-592-503-HELP. v Source: US Department of Health and Human Services/Center for Disease Control & Prevention [facility] Medications Given: Medication Dose Route Sodium Chloride 0.9% intravenous solution 1000.00 mL Initial Volume 1000.00 mL/hr IV Piggyback Left Mid Forearm Medication Information: New Medications [id number], [address], [place] [id number], [phone] gabapentin (gabapentin 100 mg Cap) 1 Capsules By Mouth every day for 7 Days. Refills: 0. magnesium oxide (magnesium oxide 400 mg Tab) 1 Tabs By Mouth every day for 7 Days. Refills: 0. [facility], [address] [place], [place] [id number], [phone] gabapentin (gabapentin 100 mg Cap) 1 Capsules By Mouth every day for 7 Days. Refills: 0. magnesium oxide (magnesium oxide 400 mg Tab) 1 Tabs By Mouth every day for 7 Days. Refills: 0. Medications to Continue with No Changes Other Medications metformin (metformin 500 mg ER Tab) 250 Milligram By Mouth 2 times a day. Comment: Pharmacy Information: Thank you for choosing [facility] Patient Education Materials: Paresthesia Paresthesia is a [...] Document Reviewed: 01/29/2012 ExitCare? Patient Information ?2015 [employer]. This information is not intended to replace [...] ? Drawing. ? Crawling. ? Worming. ? [place]. ? Tingling. ? Pins and needles. ? [...] Document Reviewed: 08/06/2011 ExitCare? Patient Information ?2015 [employer]. This information is not intended to replace advice given to you by your health care provider. Make sure you discuss any questions you have with your health care provider. TERA Dorantes NICOLE B , have received the following patient education materials/instructions and have verbalized understanding: Patient Education Materials: Paresthesia, Eytd-rq-Wdsc; Restless Legs Syndrome Follow-up Instructions: With: Address: When: Sayda Kelley [facility], [address] [place] [address] [employer] (1) Within 1 to 2 days Comments: neurologist you may also follow up with him With: Address: When: [address] [address] [employer] () Within 1 to 2 days Comments: Return to ED if symptoms worsen Prescriptions: [gabapentin (gabapentin 100 mg Cap)] [gabapentin (gabapentin 100 mg Cap)] [magnesium oxide (magnesium oxide 400 mg Tab)] [magnesium oxide (magnesium oxide 400 mg Tab)] Patient Signature Date Clinician/Nurse Signature ___ Date 09/14/18 00:21:[address] [facility] Hep Func Panelon 09-14-2018 Bilirubin.direct [Mass/Vol] UTC Abnormal 0.1-0.[address] [facility] Comment on above: Result Comment: Resu lt verified by Discern Rule. Performed result UTC (Unable to Calculate) was sent as an Alpha code due the inability to calculate a valid numeric value. Performed By: #### 1 [id number], 5422010, 4744137, 0965797, 59486624, 1870889, 3782611, 8273871, 3569321, 84001030, 7936954 #### [facility] [address] [place] [address] Albumin [Mass/Vol] 1.1 g/dL Normal 1.1-2.[address] [facility] Comment on above: Performed By: #### 1 7466330, 3656822, 0976873, 7103314, 49845136, 0582009, 4740235, 8200235, 2543587, 39931271, 1902783 #### [facility] [address] [place] [address] Albumin [Mass/Vol] 4.1 g/dL Normal 3.3-5.[address] [facility] Comment on above: Performed By: #### 1 8750630, 0525589, 7651085, 1475324, 42115284, 4113048, 1133870, 8212956, 4106727, 11249072, 7990076 #### [facility] [address] [place] [address] ALP [Catalytic activity/Vol] 69 Int._Unit/L Normal 21-[address] [facility] Comment on above: Performed By: #### 1 1855179, 3456974, 7910025, 2635195, 84461685, 7364316, 1116305, 7606399, 5348497, 10472809, 6588382 #### [facility] [address] [place] [address] ALT No additional P-5'-P [Catalytic activity/Vol] 27 Int._Unit/L Normal 6-[address] [facility] Comment on above: Performed By: #### 1 4742062, 2988272, 3575254, 1823009, 29004621, 8208902, 9062978, 9210061, 9445152, 61924291, 0785209 #### [facility] [address] [place] [address] AST [Catalytic activity/Vol] 16 Int._Unit/L Normal 5-[address] [facility] Comment on above: Performed By: #### 1 3893918, 6099776, 1849571, 0736747, 59728447, 7257179, 9346428, 1994747, 5561709, 85797959, 8347776 #### [facility] [address] [place], [place] [address] Bilirubin [Mass/Vol] 0.5 mg/dL Normal 0.0-1.1 [facility] Comment on above: Performed By: #### 1 8543629, 6260581, 8389513, 2536859, 86299683, 9130902, 0947292, 4500371, 6058022, 66084305, 2638737 #### [facility] [address] [place] [address] Bilirubin.direct [Mass/Vol] mg/dL Normal 0.1-0.[address] [facility] Comment on above: Performed By: #### 1 0356724, 0381208, 2307247, 3484971, 08922745, 3507183, 0470935, 8446403, 7851728, 67481084, 7649097 #### [facility] [address] [place] [address] Globulin (S) [Mass/Vol] 3.7 g/dL Normal 1.4-4.[address] [facility] Comment on above: Performed By: #### 1 4158205, 0984213, 0575942, 2407931, 94586780, 6156663, 9588943, 9246540, 5648712, 06340513, 0496726 #### [facility] [address] [place] [address] Protein [Mass/Vol] 7.8 g/dL Normal 6.0-7.[address] [facility] Comment on above: Performed By: #### 1 3358100, 2141870, 2797320, 8123087, 22000210, 0996484, 6038608, 1647550, 8348810, 54972158, 5583550 #### [facility] [address] [place] [address] Magnesiumon 09-14-2018 Magnesium [Mass/Vol] 1.9 mg/dL Normal 1.3-2.4 [facility] Comment on above: Performed By: #### 1 0022183, 0561485, 6926420, 5085734, 56618774, 5060537, 8284561, 2023220, 6754717, 63643116, 4952224 #### [facility] [address] [place] [address] Myoglobinon 09-14-2018 Myoglobin [Mass/Vol] 9 ng/mL Normal <=69 [facility] Comment on above: Performed By: #### 1 4920554, 7206256, 0313996, 4629552, 05525972, 1616727, 2007153, 8431291, 5017716, 53476346, 6238783 #### [facility] [address] [place] [address] PT & PTTon 09-14-2018 aPTT Coag (PPP) [Time] 34.5 second(s) Normal 25.1-36.[address] [facility] Comment on above: Result Comment: Hepa rin therapeutic range (represented by Anti-Factor Xa activity of 0.2 - 0.4 U/mL) corresponds to PTT of 56.6 - 109.0 sec. Performed By: #### 1 5032729, 4311376, 5708331, 6294724, 90274059, 1882615, 7008989, 5612853, 0806246, 15541560, 7446119 #### [facility] [address] [place] [address] INR Coag (PPP) [Relative time] 1.0 {INR} [facility] Comment on above: Result Comment: INR results are specifically intended to assess patients stabilized on long-term Anticoagulation therapy suggested INR?s ?Less Intensive Anticoagulation? 2.0 ? 3.0 Conventional Range 3.0 ? 4.5 Performed By: #### 1 5654913, 7894093, 4170548, 9860211, 18842495, 0879722, 2621429, 3123814, 0195882, 53177707, 0508883 #### [facility] [address] [place] [address] PT Coag (PPP) [Time] 11.2 second(s) Normal 10.2-12.[address] [facility] Comment on above: Performed By: #### 1 3513323, 7043254, 8175492, 8026970, 61994557, 2892646, 0613619, 2267356, 0380943, 82076663, 1787934 #### [facility] [address] [place] [address] Phosphoruson 09-14-2018 Phosphate [Mass/Vol] 3.8 mg/dL Normal 1.9-4.6 [facility] Comment on above: Performed By: #### 1 2962122, 4913734, 2638574, 1207741, 53366853, 1030031, 4991362, 6905724, 5534275, 72787821, 8617419 #### [facility] [address] [place] [address] Troponin 0 Hr.on 09-14-2018 Troponin I.cardiac [Mass/Vol] ng/mL Normal <=0.[address] [facility] Comment on above: Result Comment: New Troponin Assay 10/05/13 [place] Cutoff value > or = 0.03 ng/mL in conjunction with clinical conditions of myocardial infarction. ([email or web address]) Performed By: #### 1 3747921, 2803273, 1287070, 9305308, 71783811, 7009424, 9285518, 5753707, 2071314, 96418661, 6447575 #### [facility] [address] [place] [address] UA With Cult Reflexon 2018 Bacteria LM Ql (Urine sed) TRACE Normal Trace [facility] Comment on above: Performed By: #### 1 4425338, 5084306, 6203900, 0944498, 78502446, 3842109, 2335596, 3464110, 9357306, 74585655, 7680668 #### [facility] [address] [place] [address] Bilirubin Ql (U) Negative Normal Negative [facility] Comment on above: Performed By: #### 1 6404235, 3171527, 0266096, 9485907, 83693363, 6278522, 5163077, 7388379, 2322186, 71084526, 4466684 #### [facility] [address] [place] [address] Clarity (U) CLEAR Normal Clear [facility] Comment on above: Performed By: #### 1 9162313, 1864113, 0756721, 8621427, 89431254, 1487551, 6010546, 4811634, 0356956, 15180546, 6801515 #### [facility] [address] [place] [address] Color (U) YELLOW Normal Yellow [facility] Comment on above: Performed By: #### 1 4554646, 4968775, 3362635, 1376792, 18448101, 3751398, 4546311, 7640078, 1707966, 06678459, 4804152 #### [facility] [address] [place] [address] Epithelial cells.squamous LM.HPF (Urine sed) [#/Area] 0-2 Normal 0-2 [facility] Comment on above: Performed By: #### 1 7928975, 9911786, 8264494, 1394815, 86695602, 7745143, 4111636, 7183291, 2847623, 64031078, 1709370 #### [facility] [address] [place] [address] Glucose Test strip (U) [Mass/Vol] Negative Normal Negative [facility] Comment on above: Performed By: #### 1 6858171, 7815432, 5279537, 0469023, 08442386, 3127170, 6453165, 2702612, 7224967, 03870831, 8505409 #### [facility] [address] [place] [address] Hemoglobin Ql (U) Negative Normal Negative [facility] Comment on above: Performed By: #### 1 6585532, 9259932, 2587686, 0850834, 32376802, 8571601, 2829294, 0028411, 2024957, 56458669, 1277108 #### [facility] [address] [place], [place] [address] Ketones (U) [Mass/Vol] Negative Normal Negative [facility] Comment on above: Performed By: #### 1 2039668, 4043969, 4935120, 4631030, 65640119, 9136476, 2974816, 2028696, 8515546, 81674388, 8704941 #### [facility] [address] [place] [address] [place].plasma/Lithiu m.RBC (Bld) [Mass ratio] 0-3 Normal 0-[address] [facility] Comment on above: Performed By: #### 1 5564111, 8985764, 3159857, 9882127, 08342063, 1650760, 4615998, 0112357, 1413350, 20891316, 5367924 #### [facility] [address] [place] [address] Mucus Ql (Urine sed) TRACE Normal Fish [facility] Comment on above: Performed By: #### 1 0412838, 5119482, 4664440, 3274944, 41924852, 0119185, 6014295, 5682429, 5664564, 75187375, 8320125 #### [facility] [address] [place] [address] Nitrite Ql (U) Negative Normal Negative [facility] Comment on above: Performed By: #### 1 3327391, 5362590, 8885192, 2474558, 44030601, 8532121, 6560749, 7730036, 6837130, 04344675, 2289418 #### [facility] [address] [place] [address] pH (U) 6.0 [pH] 5.0-9.[address] [facility] Comment on above: Performed By: #### 1 2066139, 3694678, 1455937, 9430951, 91618178, 0295608, 3056798, 2640772, 5025768, 76657407, 9282330 #### [facility] [address] [place] [address] Protein (U) [Mass/Vol] Negative Normal Negative [facility] Comment on above: Performed By: #### 1 4892983, 7706328, 2806743, 5429619, 40971457, 1076560, 4577122, 2001967, 6350879, 43094579, 2082956 #### [facility] [address] [place] [address] Specific gravity (U) [Rel density] 1.010 1.005-1.[address] [facility] Comment on above: Performed By: #### 1 0051726, 2384597, 1719536, 3626055, 81994260, 8443455, 0064402, 8990044, 6005307, 62171234, 4260476 #### [facility] [address] [place] [address] UA Spec Desc Clean Catch Normal [facility] Comment on above: Performed By: #### 1 3686606, 2999549, 9085895, 5427746, 32735803, 0702047, 3046045, 3698609, 7797840, 65014205, 1467594 #### [facility] [address] [place] [address] Urobilinogen Qn (U) 0.2 {Carmella'U}/dL Normal 0.0-1.[address] [facility] Comment on above: Performed By: #### 1 8460581, 5606830, 0284638, 3640666, 94777125, 2157675, 5531643, 4728804, 7247551, 09152653, 3624698 #### [facility] [address] [place] [address] WBC Auto Ql (U) Negative Normal Negative [facility] Comment on above: Performed By: #### 1 6747111, 8001030, 9638241, 1631906, 51631562, 9229528, 5591043, 0693940, 1673642, 64592565, 8657287 #### [facility] [address] [place] [address] WBC LM.HPF (Urine sed) [#/Area] 0-5 Normal 0-[address] [facility] Comment on above: Performed By: #### 1 7134121, 4265749, 7680057, 2073052, 39067973, 8602901, 4970393, 0804269, 2511614, 21418451, 6749798 #### [facility] [address] [place] [address] XR Chest Single Viewon 09-14 XR Chest [...] M.D. Transcribed by: minoo Technologist: AP Normal [facility] XR FOOT LEFT (MIN 3 VIEWS)on 09-14-2018 XR FOOT LEFT (MIN 3 VIEWS) Radiology exam is complete. No Radiologist dictation. Please follow up with ordering provider. Final result Normal [facility] XR FOOT RIGHT (MIN 3 VIEWS)o n 09-14-2018 XR FOOT RIGHT (MIN 3 VIEWS) Radiology exam is complete. No Radiologist dictation. Please follow up with ordering provider. Final result Normal [facility] eGFRon 09-14-2018 GFR/1.73 sq M predicted among blacks MDRD (S/P/Bld) [Vol rate/Area] mL/min/{1.73_m2} Normal >=[address] [facility] Comment on above: Order Comment: Order added by Discern Expert. Result Comment: eGFR is race adjusted. AA=. Performed By: #### 1 6899918, 0246118, 5167853, 3115550, 95946786, 1036526, 8751853, 7336099, 6370626, 08233112, 7020917 #### [facility] [address] [place] [address] GFR/1.73 sq M predicted among non-blacks MDRD (S/P/Bld) [Vol rate/Area] mL/min/{1.73_m2} Normal >=[address] [facility] Comment on above: Order Comment: Order added by Discern Expert. Result Comment: Narcotics Agent anthony kidney disease could be indicated at eGFR's of less than 60 mL/min/1.73m2. Kidney failure is indicated at less than 15 mL/min/1.73m2. Performed By: #### 1 8216451, 5627328, 3148724, 1571893, 22190332, 2360429, 9639786, 8037526, 0850577, 21748396, 7646793 #### [facility] [address] [place] [address] Vital Signs Date Time Vital Sign Value Performing Clinician Facility 11-04-2023 13:55-0400 Body height 170.18 cm [facility] 11-04-2023 13:55-0400 Body temperature 97.3 [degF] [facility] 11-04-2023 13:55-0400 Diastolic blood pressure 54 mm[Hg] [facility] 11-04-2023 13:55-0400 Heart rate 62 /min [facility] 11-04-2023 13:55-0400 Systolic blood pressure 104 mm[Hg] [facility] 10-27-2023 14:44-0400 Body temperature 97 [degF] Ma Sand Work Phone: [facility] 10-27-2023 14:44-0400 Diastolic blood pressure 72 mm[Hg] Ma Sand Work Phone: [facility] 10-27-2023 14:44-0400 Heart rate 97 /min Ma Sand Work Phone: [facility] 10-27-2023 14:44-0400 Respiratory rate 18 /min Ma Sand Work Phone: [facility] 10-27-2023 14:44-0400 SaO2% (BldA) [Mass fraction] 97 % Ma Sand Work Phone: [facility] 10-27-2023 14:44-0400 Systolic blood pressure 110 mm[Hg] Ma Sand Work Phone: [facility] 10-20-2023 13:10-0400 Body height 170.18 cm [facility] 10-20-2023 13:10-0400 Body mass index (BMI) [Ratio] 43.2 kg/m2 [facility] 10-20-2023 13:10-0400 Body temperature 97.3 [degF] [facility] 10-20-2023 13:10-0400 Body weight 125.19 kg [facility] 10-20-2023 13:10-0400 Diastolic blood pressure 54 mm[Hg] [facility] 10-20-2023 13:10-0400 Heart rate 74 /min [facility] 10-20-2023 13:10-0400 Systolic blood pressure 111 mm[Hg] [facility] 09-30-2023 10:48-0400 Body temperature 97 [degF] Ma Sand Work Phone: [facility] 09-30-2023 10:48-0400 Diastolic blood pressure 82 mm[Hg] Ma Sand Work Phone: [facility] 09-30-2023 10:48-0400 Heart rate 71 /min Ma Sand Work Phone: [facility] 09-30-2023 10:48-0400 Respiratory rate 18 /min Ma Sand Work Phone: [facility] 09-30-2023 10:48-0400 SaO2% (BldA) [Mass fraction] 97 % Ma Sand Work Phone: [facility] 09-30-2023 10:48-0400 Systolic blood pressure 132 mm[Hg] Ma Sand Work Phone: [facility] 09-22-2023 14:41-0400 Body weight 117.93 kg [facility] 08-31-2023 10:34-0400 Body temperature 97.3 [degF] Ma Sand Work Phone: [facility] 08-31-2023 10:34-0400 Diastolic blood pressure 66 mm[Hg] Ma Sand Work Phone: [facility] 08-31-2023 10:34-0400 Heart rate 68 /min Ma Sand Work Phone: [facility] 08-31-2023 10:34-0400 Respiratory rate 18 /min Ma Sand Work Phone: [facility] 08-31-2023 10:34-0400 SaO2% (BldA) [Mass fraction] 99 % Ma Sand Work Phone: [facility] 08-31-2023 10:34-0400 Systolic blood pressure 105 mm[Hg] Ma Sand Work Phone: [facility] 08-05-2023 11:15-0400 Body temperature 97.39 [degF] Ma Sand Work Phone: [facility] 08-05-2023 11:15-0400 Diastolic blood pressure 41 mm[Hg] Ma Sand Work Phone: [facility] 08-05-2023 11:15-0400 Heart rate 68 /min Ma Sand Work Phone: [facility] 08-05-2023 11:15-0400 Respiratory rate 18 /min Ma Sand Work Phone: [facility] 08-05-2023 11:15-0400 SaO2% (BldA) [Mass fraction] 98 % Ma Sand Work Phone: [facility] 08-05-2023 11:15-0400 Systolic blood pressure 98 mm[Hg] Ma Sand Work Phone: [facility] 07-13-2023 11:49-0500 Body temperature 97.5 [degF] Ma Sand Work Phone: [facility] 07-13-2023 11:49-0500 Diastolic blood pressure 74 mm[Hg] Ma Sand Work Phone: [facility] 07-13-2023 11:49-0500 Heart rate 83 /min Ma Sand Work Phone: [facility] 07-13-2023 11:49-0500 Respiratory rate 18 /min Ma Sand Work Phone: [facility] 07-13-2023 11:49-0500 SaO2% (BldA) [Mass fraction] 96 % Ma Sand Work Phone: [facility] 07-13-2023 11:49-0500 Systolic blood pressure 109 mm[Hg] Ma Sand Work Phone: [facility] 07-13-2023 10:01-0500 Diastolic blood pressure 65 mm[Hg] Lois Holm MD Work Phone: [facility] 07-13-2023 10:01-0500 Systolic blood pressure 105 mm[Hg] Lois Holm MD Work Phone: [facility] 07-13-2023 09:41-0500 Body height 170.2 cm Lois Holm MD Work Phone: [facility] 07-13-2023 09:41-0500 Body mass index (BMI) [Ratio] 43.85 kg/m2 Lois Holm MD Work Phone: [facility] 07-13-2023 09:41-0500 Body weight 127.01 kg Lois Holm MD Work Phone: [facility] 07-13-2023 09:41-0500 Heart rate 71 /min Lois Holm MD Work Phone: [facility] 07-06-2023 14:48-0500 Body mass index (BMI) [Ratio] 41.81 kg/m2 Juan Luis Richardson MD Work Phone: [facility] 07-06-2023 14:48-0500 Body weight 119.3 kg Juan Luis Richardson MD Work Phone: [facility] 06-09-2023 08:45-0500 Body height 170.2 cm Michelle Britton [employer] Work Phone: [facility] 06-09-2023 08:45-0500 Body mass index (BMI) [Ratio] 44.48 kg/m2 Michelle Britton [employer] Work Phone: [facility] 06-09-2023 08:45-0500 Body weight 128.82 kg Michelle Britton [employer] Work Phone: [facility] 06-09-2023 08:45-0500 Diastolic blood pressure 82 mm[Hg] Michelle Britton [employer]ER Work Phone: [facility] 06-09-2023 08:45-0500 Heart rate 80 /min Michelle Britton [employer]ER Work Phone: [facility] 06-09-2023 08:45-0500 Systolic blood pressure 146 mm[Hg] Michelle Britton [employer]ER Work Phone: [facility] 05-26-2023 17:17-0500 Body weight 123.83 kg Christie Phan MD Work Phone: [facility] 04-26-2023 14:42-0500 Body weight 125.19 kg Christie Phan MD Work Phone: [facility] 03-19-2023 11:16-0400 Body temperature 97.7 [degF] Ma Sand Work Phone: [facility] 03-19-2023 11:16-0400 Diastolic blood pressure 54 mm[Hg] Ma Sand Work Phone: [facility] 03-19-2023 11:16-0400 Heart rate 75 /min Ma Sand Work Phone: [facility] 03-19-2023 11:16-0400 Respiratory rate 16 /min Ma Sand Work Phone: [facility] 03-19-2023 11:16-0400 SaO2% (BldA) [Mass fraction] 96 % Ma Sand Work Phone: [facility] 03-19-2023 11:16-0400 Systolic blood pressure 111 mm[Hg] Ma Sand Work Phone: [facility] 02-19-2023 10:56-0400 Body height 170.2 cm Jose Najera MD Work Phone: [facility] 02-19-2023 10:56-0400 Body temperature 97.39 [degF] Jose Najera MD Work Phone: [facility] 02-19-2023 10:56-0400 Body weight 120.75 kg Jose Najera MD Work Phone: [facility] 02-19-2023 10:56-0400 Diastolic blood pressure 69 mm[Hg] Jose Najera MD Work Phone: [facility] 02-19-2023 10:56-0400 Heart rate 110 /min Jose Najera MD Work Phone: [facility] 02-19-2023 10:56-0400 Respiratory rate 16 /min Jose Najera MD Work Phone: [facility] 02-19-2023 10:56-0400 SaO2% (BldA) [Mass fraction] 96 % Jose Najera MD Work Phone: [facility] 02-19-2023 10:56-0400 Systolic blood pressure 132 mm[Hg] Jose Najera MD Work Phone: [facility] 01-22-2023 12:09-0400 Diastolic blood pressure 76 mm[Hg] Ma Sand Work Phone: [facility] 01-22-2023 12:09-0400 Systolic blood pressure 107 mm[Hg] Ma Sand Work Phone: [facility] 01-22-2023 12:08-0400 Body temperature 97.59 [degF] Ma Sand Work Phone: [facility] 01-22-2023 12:08-0400 Heart rate 102 /min Ma Sand Work Phone: [facility] 01-22-2023 12:08-0400 Respiratory rate 16 /min Ma Sand Work Phone: [facility] 01-22-2023 12:08-0400 SaO2% (BldA) [Mass fraction] 97 % Ma Sand Work Phone: [facility] 11-19-2022 11:00-0400 Body temperature 97.2 [degF] Ma Sand Work Phone: [facility] 11-19-2022 11:00-0400 Diastolic blood pressure 54 mm[Hg] Ma Sand Work Phone: [facility] 11-19-2022 11:00-0400 Heart rate 98 /min Ma Sand Work Phone: [facility] 11-19-2022 11:00-0400 Respiratory rate 16 /min Ma Sand Work Phone: [facility] 11-19-2022 11:00-0400 SaO2% (BldA) [Mass fraction] 98 % Ma Sand Work Phone: [facility] 11-19-2022 11:00-0400 Systolic blood pressure 126 mm[Hg] Ma Sand Work Phone: [facility] 10-22-2022 11:51-0400 Body height 170.2 cm Ma Sand Work Phone: [facility] 10-22-2022 11:51-0400 Body weight 120.66 kg Ma Sand Work Phone: [facility] 10-22-2022 11:51-0400 Respiratory rate 16 /min Ma Sand Work Phone: [facility] 10-22-2022 10:50-0400 Body height 170.2 cm Jose Najera MD Work Phone: [facility] 10-22-2022 10:50-0400 Body temperature 97 [degF] Jose Najera MD Work Phone: [facility] 10-22-2022 10:50-0400 Body weight 120.75 kg Jose Najera MD Work Phone: [facility] 10-22-2022 10:50-0400 Diastolic blood pressure 55 mm[Hg] Jose Najera MD Work Phone: [facility] 10-22-2022 10:50-0400 Heart rate 78 /min Jose Najera MD Work Phone: [facility] 10-22-2022 10:50-0400 Respiratory rate 16 /min Jose Najera MD Work Phone: [facility] 10-22-2022 10:50-0400 SaO2% (BldA) [Mass fraction] 98 % Jose Najera MD Work Phone: [facility] 10-22-2022 10:50-0400 Systolic blood pressure 132 mm[Hg] Jose Najera MD Work Phone: [facility] 09-24-2022 10:22-0400 Body height 170.2 cm Ma Sand Work Phone: [facility] 09-24-2022 10:22-0400 Body temperature 97 [degF] Ma Sand Work Phone: [facility] 09-24-2022 10:22-0400 Body weight 120.2 kg Ma Sand Work Phone: [facility] 09-24-2022 10:22-0400 Diastolic blood pressure 81 mm[Hg] Ma Sand Work Phone: [facility] 09-24-2022 10:22-0400 Heart rate 77 /min Ma Sand Work Phone: [facility] 09-24-2022 10:22-0400 Respiratory rate 16 /min Ma Sand Work Phone: [facility] 09-24-2022 10:22-0400 SaO2% (BldA) [Mass fraction] 97 % Ma Sand Work Phone: [facility] [facility] 09-24-2022 10:22-0400 Systolic blood pressure 116 mm[Hg] Ma Sand Work Phone: [facility] 09-07-2022 14:03-0400 Body weight 120.2 kg Christie Phan MD Work Phone: [facility] 08-27-2022 09:45-0400 Body height 170.2 cm Wilmer Driver APRN.RICE FARMER Work Phone: [facility] 08-27-2022 09:45-0400 Body temperature 97.7 [degF] Wilmer Driver APRN.RICE FARMER Work Phone: [facility] 08-27-2022 09:45-0400 Body weight 118.66 kg Wilmer Driver APRN.RICE FARMER Work Phone: [facility] 08-27-2022 09:45-0400 Diastolic blood pressure 55 mm[Hg] Wilmer Driver APRN.RICE FARMER Work Phone: [facility] 08-27-2022 09:45-0400 Heart rate 63 /min Wilmer Bob LACE BURN OUT TENDER.RICE FARMER Work Phone: [facility] 08-27-2022 09:45-0400 Respiratory rate 16 /min Wilmer Driver LACE BURN OUT TENDER.RICE FARMER Work Phone: [facility] 08-27-2022 09:45-0400 SaO2% (BldA) [Mass fraction] 96 % Wilmer Driver LACE BURN OUT TENDER.RICE FARMER Work Phone: [facility] 08-27-2022 09:45-0400 Systolic blood pressure 117 mm[Hg] Wilmer Driver LACE BURN OUT TENDER.RICE FARMER Work Phone: [facility] 05-20-2022 13:28-0500 Body height 170.2 cm Jose Najera MD Work Phone: [facility] 05-20-2022 13:28-0500 Body temperature 97.7 [degF] Jose Najera MD Work Phone: [facility] 05-20-2022 13:28-0500 Diastolic blood pressure 70 mm[Hg] Jose Najera MD Work Phone: [facility] 05-20-2022 13:28-0500 Heart rate 93 /min Jose Najera MD Work Phone: [facility] 05-20-2022 13:28-0500 Respiratory rate 16 /min Jose Najera MD Work Phone: [facility] 05-20-2022 13:28-0500 SaO2% (BldA) [Mass fraction] 97 % Jose Najera MD Work Phone: [facility] 05-20-2022 13:28-0500 Systolic blood pressure 127 mm[Hg] Jose Najera MD Work Phone: [facility] 03-18-2022 10:49-0400 Body height 170.2 cm Jose Najera MD Work Phone: [facility] 03-18-2022 10:49-0400 Body temperature 97.81 [degF] Jose Najera MD Work Phone: [facility] 03-18-2022 10:49-0400 Body weight 113.4 kg Jose Najera MD Work Phone: [facility] 03-18-2022 10:49-0400 Diastolic blood pressure 49 mm[Hg] Jose Najera MD Work Phone: [facility] 03-18-2022 10:49-0400 Heart rate 86 /min Jose Najera MD Work Phone: [facility] 03-18-2022 10:49-0400 Respiratory rate 16 /min Jose Najera MD Work Phone: [facility] 03-18-2022 10:49-0400 SaO2% (BldA) [Mass fraction] 98 % Jose Najera MD Work Phone: [facility] 03-18-2022 10:49-0400 Systolic blood pressure 145 mm[Hg] Jose Najera MD Work Phone: [facility] 03-09-2022 11:41-0400 Body height 170.2 cm Christie Phan MD Work Phone: [facility] 03-09-2022 11:41-0400 Body weight 112.49 kg Christie Phan MD Work Phone: [facility] 03-09-2022 11:41-0400 Diastolic blood pressure 100 mm[Hg] Christie Phan MD Work Phone: [facility] 03-09-2022 11:41-0400 Systolic blood pressure 158 mm[Hg] Christie Phan MD Work Phone: [facility] 03-04-2022 10:39-0400 Body height 170.2 cm Jose Najera MD Work Phone: [facility] 03-04-2022 10:39-0400 Body temperature 97.5 [degF] Jose Najera MD Work Phone: [facility] 03-04-2022 10:39-0400 Body weight 112.76 kg Jose Najera MD Work Phone: [facility] 03-04-2022 10:39-0400 Diastolic blood pressure 48 mm[Hg] Jose Najera MD Work Phone: [facility] 03-04-2022 10:39-0400 Heart rate 79 /min Jose Najera MD Work Phone: [facility] 03-04-2022 10:39-0400 Respiratory rate 16 /min Jose Najera MD Work Phone: [facility] 03-04-2022 10:39-0400 SaO2% (BldA) [Mass fraction] 99 % Jose Najera MD Work Phone: [facility] 03-04-2022 10:39-0400 Systolic blood pressure 132 mm[Hg] Jose Najera MD Work Phone: [facility] 11-26-2021 16:00-0400 Body height 168.91 cm Mirela Kelsey Other [facility] Other 11-26-2021 16:00-0400 Body mass index (BMI) [Ratio] 37.68 kg/m2 Mirela Kelsey Other [facility] Other 11-26-2021 16:00-0400 Body temperature 98.4 [degF] Mirela Kelsey Other [facility] Other 11-26-2021 16:00-0400 Body weight 107.5 kg Mirela Kelsey Other [facility] Other 11-26-2021 16:00-0400 Diastolic blood pressure 61 mm[Hg] Mirela Kelsey Other [facility] Other 11-26-2021 16:00-0400 Systolic blood pressure 115 mm[Hg] Mirela Kelsey Other [facility] Other 10-24-2021 08:18-0400 Body weight 108.86 kg Lynne Ni MD Work Phone: [facility] 10-24-2021 08:18-0400 Diastolic blood pressure 42 mm[Hg] Lynne Ni MD Work Phone: [facility] 10-24-2021 08:18-0400 Heart rate 72 /min Lynne Ni MD Work Phone: [facility] 10-24-2021 08:18-0400 Systolic blood pressure 106 mm[Hg] Lynne Ni MD Work Phone: [facility] 10-15-2021 15:45-0400 Body height 168.91 cm Mirela Kelsey Other [facility] Other 10-15-2021 15:45-0400 Body mass index (BMI) [Ratio] 38.31 kg/m2 Mirela Kelsey Other [facility] Other 10-15-2021 15:45-0400 Body temperature 98.1 [degF] Mirela Kelsey Other [facility] Other 10-15-2021 15:45-0400 Body weight 109.32 kg Mirela Kelsey Other [facility] Other 10-15-2021 15:45-0400 Diastolic blood pressure 60 mm[Hg] Mirela Kelsey Other [facility] Other 10-15-2021 15:45-0400 Systolic blood pressure 114 mm[Hg] Mirela Kelsey Other [facility] Other 09-11-2021 15:15-0400 Body height 168.91 cm Mirela Kelsey Other [facility] Other 09-11-2021 15:15-0400 Body mass index (BMI) [Ratio] 37.99 kg/m2 Mirela Kelsey Other [facility] Other 09-11-2021 15:15-0400 Body temperature 97.9 [degF] Mirela Kelsey Other [facility] Other 09-11-2021 15:15-0400 Body weight 108.41 kg Mirela Kelsey Other [facility] Other 09-11-2021 15:15-0400 Diastolic blood pressure 83 mm[Hg] Mirela Kelsey Other [facility] Other 09-11-2021 15:15-0400 Systolic blood pressure 144 mm[Hg] Mirela Kelsey Other [facility] Other 10-07-2020 12:45-0400 Diastolic blood pressure 78 mm[Hg] Stv [facility] Phone: 10-07-2020 12:45-0400 Heart rate 68 /min [facility] Phone: 10-07-2020 12:45-0400 SaO2% (BldA) [Mass fraction] 99 % [facility] Phone: 10-07-2020 12:45-0400 Systolic blood pressure 112 mm[Hg] [facility] Phone: 10-07-2020 10:45-0400 Respiratory rate 22 /min [facility] Phone: 10-07-2020 09:01-0400 Body height 170.2 cm [facility] Phone: 10-07-2020 09:01-0400 Body mass index (BMI) [Ratio] 36.65 kg/m2 Stv Yi De Work Phone: 10-07-2020 09:01-0400 Body temperature 97.81 [degF] [facility] Work Phone: 10-07-2020 09:01-0400 Body weight 106.14 kg [facility] Work Phone: Encounters Encounter Date Encounter Type Care Provider Facility Start: 11-15-2023 End: 11-15-2023 ambulatory KATY PRESCOTT Not Available Start: 11-11-2023 Refill Lynne Ni MD Work Phone: Rheumatology Comment on above: Refill Request Start: 11-08-2023 End: 11-08-2023 ambulatory SHARRON ROGERS Not Available Start: 11-04-2023 End: 11-04-2023 [facility] Work Phone: Start: 11-04-2023 End: 11-04-2023 Patient encounter procedure [facility] Work Phone: Start: 10-27-2023 End: 10-27-2023 Nursing evaluation of patient and report Ma Nurse Dre Marshall Work Phone: Hematology/Oncology Comment on above: Elevated sed rate (P rimary Dx); Megaloblastic anemia due to vitamin B12 deficiency Start: 10-27-2023 End: 10-28-2023 ambulatory Lynne Ni MD Work Phone: Rheumatology Start: 10-27-2023 Patient encounter procedure Lynne Ni MD Work Phone: Rheumatology Comment on above: Cdiff Start: 10-21-2023 End: 10-21-2023 ambulatory SHARRON ROGERS Not Available Start: 10-20-2023 End: 10-20-2023 ambulatory [facility] Work Phone: Start: 10-20-2023 End: 10-20-2023 Patient encounter procedure [facility] Infectious Disease Work Phone: Start: 10-12-2023 Specialty Pharmacy Aidee Quintanilla RP [facility] Comment on above: SPP Inflammatory Con ditions - Medication Refill (Benlysta) Start: 10-05-2023 End: 10-05-[address] 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 Facility:[facility] Start: 09-22-2023 End: 09-22-2023 Patient encounter procedure [facility] Gastroenterology Work Phone: Start: 09-13-2023 End: 09-13-2023 Specialty Pharmacy Aidee Quintanilla RP [facility] Comment on above: SPP Inflammatory Con ditions - Medication Refill (Benlysta) Start: 09-09-2023 End: 09-10-2023 ambulatory Jose Najera MD Work Phone: Hematology/Oncology Comment on above: 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); Obstructive sleep apnea syndrome; Chronic fatigue and malaise; High total serum IgM; JOSE RAFAEL (obstructive sleep apnea); Somnolence, daytime Start: 09-09-2023 End: 09-10-2023 Telemedicine consultation with patient Jose Najera MD Work Phone: [facility] Start: 09-04-2023 Telephone encounter Lynne shaw MD Work Phone: Rheumatology Comment on above: Results Start: 08-31-2023 End: 08-31-2023 Nursing evaluation of patient and report Cele Marshall Work Phone: Hematology/Oncology Comment on above: 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); Elevated sed rate Start: 08-31-2023 End: 08-31-[address] [facility] Facility:[facility] Start: 08-12-2023 Specialty Pharmacy Aidee Quintanilla [facility] Comment on above: SPP Inflammatory Con ditions - Medication Refill (Benlysta ) Start: 08-10-2023 End: 08-10-2023 ambulatory GORDO DAOTye Not Available Start: 08-05-2023 End: 08-05-[address] [facility] Facility:[facility] Start: 08-05-2023 End: 08-05-2023 Nursing evaluation of patient and report Cele Marshall Work Phone: Hematology/Oncology Comment on above: 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); Elevated sed rate Start: 07-28-2023 Non-patient / Non-visit [facility] Physician [facility] Gastroenterology Work Phone: Start: 07-15-2023 End: 07-15-2023 ambulatory BERNABE ENGLISH Not Available Start: 07-13-2023 End: 07-13-2023 ambulatory [facility] Start: 07-13-2023 End: 07-13-2023 Nursing evaluation of patient and report Cele Marshall Work Phone: Hematology/Oncology Comment on above: 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); Elevated sed rate SPP Inflammatory Con ditions - Medication Refill (Benlysta ) Start: 07-13-2023 End: 07-13-2023 Office outpatient new 45 minutes Lois Holm MD Work Phone: [facility] Comment on above: Shortness of breath (Primary Dx); Paroxysmal supraventricular tachycardia; PAC (premature atrial contraction); Current smoker; Systemic lupus erythematosus, unspecified SLE type, unspecified organ involvement status (CMS/HCC); Palpitations; Obstructive sleep apnea syndrome; Morbid obesity ([facility]/HCC); Bilateral lower extremity edema Start: 07-06-2023 End: 07-06-2023 Office outpatient visit 25 minutes Juan Luis Richardson MD Work Phone: [facility] Comment on above: Autoimmune disease ( CMS/HCC) (Primary Dx); Autonomic dysfunction; Lumbosacral radiculopathy; Bilateral leg weakness Start: 07-06-2023 End: 07-06-2023 ambulatory JUAN LUIS RICHARDSON Not Available Start: 07-05-2023 Chart abstracting Juan Luis ramirez MD Work Phone: [facility] Start: 06-10-2023 End: 06-10-2023 ambulatory MADELAINE FERRIS Facility:[facility] Start: 06-09-2023 End: 06-09-2023 ambulatory [facility] Ambulatory Start: 06-09-2023 End: 06-09-2023 Office outpatient new 60 minutes [facility] LACE BURN OUT TENDER-RICE FARMER Work Phone: [facility] Comment on above: Irregular heart rate (Primary Dx); Essential hypertension; Autonomic dysfunction; Obstructive sleep apnea syndrome; Primary hypertension Start: 06-03-2023 End: 06-03-2023 ambulatory MADELAINE M JOSY Facility:[facility] Start: 06-01-2023 End: 06-01-2023 ambulatory MADELAINE Batista Gal Facility:[facility] Start: 06-01-2023 End: 06-01-2023 ambulatory SHARRON ROGERS Not Available Start: 05-26-2023 End: 05-26-2023 Office outpatient visit 40 minutes Christie Phan MD Work Phone: Integrated [facility] Comment on above: Obesity, Class III, BMI >= 40 (Primary Dx); Other chronic pain Start: 05-26-2023 End: 05-26-2023 ambulatory CHRISTIE PHAN Facility:[facility] Start: 05-10-2023 End: 05-10-2023 ambulatory MADELAINE FERRIS Facility:[facility] Start: 05-06-2023 End: 05-06-2023 ambulatory SHARRON ROGERS Not Available Start: 04-26-2023 [...] Results Start: 04-21-2023 End: 04-21-2023 ambulatory SHARRON Daniela KEN Not Available Start: 04-16-2023 End: 04-16-2023 Nursing evaluation of patient and report Cele Marshall Work Phone: Hematology/Oncology Comment on above: 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); Elevated sed rate Start: 04-16-2023 End: 04-16-2023 ambulatory MADELAINE FERRIS Facility:[facility] Start: 04-09-2023 End: 04-09-2023 ambulatory MADELAINE M HOY Facility:[facility] Start: 03-19-2023 End: 03-19-2023 ambulatory MADELAINE M Y Facility:[facility] Start: 03-19-2023 End: 03-19-2023 Nursing evaluation of patient and report Cele Marshall Work Phone: Hematology/Oncology Comment on above: 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); Elevated sed rate Start: 03-16-2023 Chart abstracting [facility] Work Phone: Neurology Comment on above: CMN Start: 03-11-2023 End: 03-11-[address] [facility] Facility:[facility] Start: 03-11-2023 End: 03-11-2023 Nursing evaluation of patient and report Nurse Mora [facility] Nickie Work Phone: Rheumatology Comment on above: Systemic lupus eryth ematosus, unspecified SLE type, unspecified organ involvement status (HCC) (Primary Dx) Start: 03-03-2023 End: 03-03-[address] [facility] Facility:[facility] Start: 03-01-2023 Telephone encounter Lynne shaw MD Work Phone: Rheumatology Comment on above: Results (Eye Exam) Start: 02-19-2023 End: 02-19-2023 Nursing evaluation of patient and report Ma Nurse Dre Marshall Work Phone: Hematology/Oncology Comment on above: 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); Elevated sed rate Start: 02-19-2023 End: 02-19-2023 [facility] Facility:[facility] Start: 02-19-2023 End: 02-19-2023 Office outpatient visit 15 minutes Jose Najera MD Work Phone: Hematology/Oncology Comment on above: 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); Elevated sed rate; Chronic fatigue and malaise; High total serum IgM; JOSE RAFAEL (obstructive sleep apnea) Start: 02-13-2023 Refill Lynne Ni MD Work Phone: Rheumatology Comment on above: Refill Request Start: 02-11-2023 End: 02-11-[address] [facility] Facility[facility] Start: 02-04-2023 End: 02-04-2023 ambulatory Lynne [...] Elevated sed rate; Bilateral wrist pain; 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; Steroid-induced osteoporosis; 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 Start: 02-04-2023 Patient encounter procedure Clinton Schroeder (Pharmacist) [facility] Comment on above: SPP Inflammatory Con ditions - Treatment Referral (Benlysta); Insurance Authorization ([place] submission pending) Start: 02-04-2023 Telephone encounter Lynne shaw MD Work Phone: Rheumatology Comment on above: Appointment; Orders; Medication Authorization Start: 02-04-2023 End: 02-04-2023 Telemedicine consultation with patient Lynne Ni MD Work Phone: [facility] Start: 01-28-2023 Refill Christie Hays Work Phone: Integrated Medicine Comment on above: Refill Request Start: 01-24-2023 Telephone encounter Lynne shaw MD Work Phone: Rheumatology Comment on above: Results Start: 01-22-2023 End: 01-22-2023 Nursing evaluation of patient and report Mi Nurse Dre Marshall Work Phone: Hematology/Oncology Comment on above: 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); Elevated sed rate Start: 01-22-2023 End: 01-22-2023 ambulatory MADELAINE FERRIS Facility:[facility] Start: 01-17-2023 Orders Only Jose nelson MD [...] with patient Misty Nelson MD Work Phone: [facility] Start: 12-29-2022 End: 12-29-2022 ambulatory MADELAINE FERRIS Facility:[facility] Start: 12-24-2022 Refill Christie Hays Work Phone: [facility] Comment on above: Refill Request Start: 12-18-2022 Telephone encounter Lidia Argueta RN Work Phone: Hematology/Oncology Comment on above: Care Coordination (a ppointment) Start: 12-17-2022 End: 12-18-2022 ambulatory Wilmer Bob THORPE.RICE FARMER Work Phone: Hematology/Oncology Comment on above: 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); Chronic fatigue and malaise Start: 12-17-2022 End: 12-18-2022 Telemedicine consultation with patient Wilmer Bob LACE BURN OUT TENDER.RICE FARMER Work Phone: [facility] Start: 12-16-2022 Telephone encounter [...] Start: 11-19-2022 End: 11-19-2022 ambulatory MADELAINE FERRIS Facility:[facility] Start: 11-19-2022 End: 11-19-2022 Nursing evaluation of patient and report Ma Nurse Dre Marshall Work Phone: Hematology/Oncology Comment on above: 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); Elevated sed rate Start: 10-29-2022 End: 10-29-2022 ambulatory MADELAINE FERRIS Facility:[facility] Start: 10-22-2022 End: 10-22-2022 Nursing evaluation [...] and malaise; Obstructive sleep apnea syndrome Start: 09-24-2022 End: 09-25-2022 ambulatory MICKY PARNELL . Facility: Start: 09-24-2022 End: 09-24-2022 Nursing evaluation of patient and report Cele Marshall Work Phone: Hematology/Oncology Comment on above: 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); Elevated sed rate Start: 09-10-2022 End: 09-10-[address] MADELAINE FERRIS . Facility: Start: 09-08-2022 Telephone encounter Angelia king [facility] Compl[facility] Comment on [...] Start: 08-27-2022 End: 08-27-2022 ambulatory Wilmer Driver LACE BURN OUT TENDER.RICE FARMER Work Phone: Hematology/Oncology Comment on above: 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); Elevated sed rate; High total serum IgM; Chronic fatigue and malaise; JOSE RAFAEL (obstructive sleep apnea) Start: 08-27-2022 End: 08-27-2022 Patient encounter procedure Wilmer Bob LACE BURN OUT TENDER.RICE FARMER Work Phone: [facility] Start: 08-19-2022 Telephone encounter Lynne shaw MD Work Phone: Rheumatology Comment on above: Results Start: 08-15-2022 ambulatory Lynne Ni MD Work Phone: Rheumatology Comment on above: update Start: 08-10-2022 Refill Christie Hays Work Phone: [facility] Comment on above: Refill Request Start: 07-27-2022 End: 07-27-2022 ambulatory Lexusra Heck MAURILIO.RICE FARMER Work Phone: Neurology Comment on above: JOSE RAFAEL (obstructive sle ep apnea) (Primary Dx) Start: 07-27-2022 End: 07-27-2022 Telemedicine consultation with patient Lexus Heck APRN.RICE FARMER Work Phone: [facility] Start: 07-24-2022 ambulatory Lynne Ni MD Work Phone: Rheumatology Comment on above: Blood work Start: 07-24-2022 Telephone encounter Jose hooker MD Work Phone: Hematology/Oncology Comment on above: Orders (Lab Orders E xpire Before Appointment) Start: 07-21-2022 ambulatory Lawanda Miranda MD Work Phone: [facility] Start: 07-21-2022 Patient encounter procedure [...] above: Cpap Start: 05-05-2022 Telephone encounter Jami Rivera [facility] Comment on above: [...] m caregiver Christie Phan MD Work Phone: [facility] Start: 03-18-2022 End: 03-18-2022 Patient encounter procedure Jose Najera MD Work Phone: [facility] Start: 03-12-2022 End: 03-13-[address] MADELAINE FERRIS . Facility:[facility] Start: 03-10-2022 End: 03-10-2022 ambulatory Tiffany Head DO Work Phone: Infectious Disease Comment on above: results Raised level of immu noglobulins (Primary Dx); Wound healing, delayed; Current smoker Start: 03-10-2022 E-mail encounter fro daniela caregiver Tiffany Adilene LIVE Work Phone: [facility] Start: 03-10-2022 End: 03-10-2022 Telemedicine consultation with patient Misty Nelson MD Work Phone: [place] Start: 03-09-2022 End: 03-10-2022 ambulatory GAY ENCISO Facility:[facility] Start: 03-09-2022 End: 03-09-2022 Office consultation new/estab patient 80 min Christie Phan MD Work Phone: [facility] Comment on above: Obesity, Class II, B LA 35-39.9 (Primary Dx); Somnolence, daytime; Chronic fatigue and malaise; Obesity, unspecified classification, unspecified obesity type, unspecified whether serious comorbidity present; Snoring; POTS (postural orthostatic tachycardia syndrome); Elevated glucose; Raised level of immunoglobulins Start: 03-06-2022 Telephone encounter Tiffanygal Garcia DO Work Phone: Infectious Disease Comment [...] encounter procedure Jose Najera MD Work Phone: [facility] Start: 03-02-2022 Chart abstracting Jose waterman MD [...] with patient Tiffany Head DO Work Phone: [facility] Start: 02-14-2022 End: 02-15-[address] MADELAINE FERRIS . Facility: Start: 11-26-2021 End: 11-26-2021 ambulatory Mirela Kelsey Other [facility] Other Start: 11-26-2021 Office outpatient vi sit 25 minutes Mirela Blank [facility] Start: 11-17-2021 End: 11-18-2021 [...] 10-15-2021 End: 10-15-2021 ambulatory Mirela Kelsey Other [facility] Other Start: 10-15-2021 Office outpatient vi sit 25 minutes Mirela LOPEZ Infectious Disease Start: 10-03-2021 End: [address] MIRELA KELSEY Facility:[facility] Start: 09-18-2021 End: 09-18-2021 ambulatory Mirela Kelsey Other [facility] Other Start: 09-18-2021 Telephone encounter Mirela Kelsey [facility] Start: 09-11-2021 End: 09-11-2021 ambulatory Mirela Kelsey Other [facility] Other Start: 09-11-2021 Office outpatient ne w 45 minutes Mirela Kelsey [facility] Start: 10-07-2020 End: 10-08-2020 ambulatory JAREN HOLLEY [facility] Start: 10-07-2020 End: 10-07-2020 Subsequent hospital visit by physician Jean Manager [employer] Jameson JOHNSON Manager Applied Comment on above: Arrived Start: 09-17-2018 End: 09-17-2018 Patient encounter procedure Bettina Jiménez Facility:[facility] Start: 09-14-2018 End: 09-17-2018 Patient encounter procedure VICTOR MANUEL GUZMAN [facility] Procedures Date Procedure Procedure Detail Performing Clinician Start: 07-13-2023 ECG 12-LEAD MICHELLE [place] Start: 07-13-2023 Ecg routine ecg w/le ast 12 lds w/i&r Lois Holm MD Work Phone: Start: 06-09-2023 ECG 12-LEAD MICHELLE [place] Start: 06-09-2023 Ecg routine ecg w/le ast 12 lds w/i&r Michelle Britton L[employer] OUT T[employer]ER[employer] Work Phone: Start: 10-07-2020 End: 10-07-2020 Cardiac [...] Start: 03-17-2025 Diabetes mellitus screening Diabetes Screening [facility] Start: 07-13-2024 End: 07-13-2024 Patient encounter procedure 07/13/2024 9:20 AM EST Office Visit [facility] [address] [place] [address] Lois Holm MD [address] [facility] [address] [place] [address] [facility] Start: 01-24-2024 Influenza vaccination Influenza Vaccine (#1) [facility] Comment on above: Postponed from 01/22/2023 (Patient Refus ed) Start: 01-23-2024 Influenza vaccination Influenza Vaccine (Season Ended) [facility] Start: 12-10-2023 End: 12-10-2023 Follow-up encounter 12/10/2023 10:45 AM EDT Visit (SP) Office Hematology/Oncology [address] [place] [address] Jose Najera MD [address] [place] [address] 13 week follow up, labs 1 week before Hematology/Oncology Comment on above: 13 week follow up, labs 1 week before Start: 12-04-2023 End: 09-03-2024 25-hydroxyvitamin D3 [Mass/volume] in Serum or Plasma VITAMIN D 25 HYDROXY Lab Routine Vitamin D deficiency Expected: 12/04/2023 (Approximate), Expires: 09/03/2024 [facility] Work Phone: Comment on above: Expected: 12/04/2023 (Approximate), Expi res: 09/03/2024 Start: 12-04-2023 End: 09-03-2024 C reactive protein [Mass/volume] in Serum or Plasma C-REACTIVE PROTEIN Lab Routine Elevated sed rate Elevated C-reactive protein (CRP) Expected: 12/04/2023 (Approximate), Expires: 09/03/2024 [facility] Work Phone: Comment on above: Expected: 12/04/2023 (Approximate), Expi res: 09/03/2024 Start: 12-04-2023 End: 09-03-2024 CBC panel - Blood by Automated count COMPLETE BLOOD COUNT Lab Routine Anemia of chronic disease Expected: 12/04/2023 (Approximate), Expires: 09/03/2024 [facility] Work Phone: Comment on above: Expected: 12/04/2023 (Approximate), Expi res: 09/03/2024 Start: 12-04-2023 End: 09-03-2024 Comprehensive metabolic 2000 panel - Serum or Plasma COMPREHENSIVE METABOLIC PANEL Lab Routine Elevated LFTs Expected: 12/04/2023 (Approximate), Expires: 09/03/2024 [facility] Work Phone: Comment on above: Expected: 12/04/2023 (Approximate), Expi res: 09/03/2024 Start: 12-04-2023 End: 09-03-2024 Erythrocyte sedimentation rate SEDIMENTATION RATE, WESTERGREN Lab Routine Elevated sed rate Elevated C-reactive protein (CRP) Expected: 12/04/2023 (Approximate), Expires: 09/03/2024 [facility] Work Phone: Comment on above: Expected: 12/04/2023 (Approximate), Expi res: 09/03/2024 Start: 12-03-2023 End: 12-03-2023 Nursing evaluation of patient and report 12/03/2023 11:00 AM EDT Nurse Visit Hematology/Oncology [address] [place] [address] Cele Marshall Nurse Dre [address] [place] [address] b12 Hematology/Oncology Comment on above: b12 Start: 12-03-2023 End: 12-03-2023 Patient encounter procedure 12/03/2023 10:45 AM EDT Office Visit [facility] [address] [place] [address] lab [facility] Comment on above: lab Start: 12-02-2023 End: 09-08-2024 CBC W Auto Differential panel - Blood COMPLETE BLOOD COUNT AND DIFFERENTIAL Lab Routine Megaloblastic anemia due to vitamin B12 deficiency High total serum IgM Expected: 12/02/2023 (Approximate), Expires: 09/08/2024 [facility] Work Phone: Comment on above: Expected: 12/02/2023 (Approximate), Expi res: 09/08/2024 Start: 12-02-2023 End: 09-08-2024 Cobalamin (Vitamin B12) [Mass/volume] in Serum or Plasma VITAMIN B12 Lab Routine Megaloblastic anemia due to vitamin B12 deficiency High total serum IgM Expected: 12/02/2023 (Approximate), Expires: 09/08/2024 [facility] Work Phone: Comment on above: Expected: 12/02/2023 (Approximate), Expi res: 09/08/2024 Start: 12-02-2023 End: 09-08-2024 Comprehensive metabolic 2000 panel - Serum or Plasma COMPREHENSIVE METABOLIC PANEL Lab Routine Megaloblastic anemia due to vitamin B12 deficiency High total serum IgM Expected: 12/02/2023 (Approximate), Expires: 09/08/2024 [facility] Work Phone: Comment on above: Expected: 12/02/2023 (Approximate), Expi res: 09/08/2024 Start: 12-02-2023 End: 03-02-2024 Erythrocyte sedimentation rate SEDIMENTATION RATE, WESTERGREN Lab Routine Megaloblastic anemia due to vitamin B12 deficiency High total serum IgM Expected: 12/02/2023 (Approximate), Expires: 03/02/2024 [facility] Work Phone: Comment on above: Expected: 12/02/2023 (Approximate), Expi res: 03/02/2024 Start: 12-02-2023 End: 09-08-2024 Ferritin [Mass/volume] in Serum or Plasma FERRITIN Lab Routine Megaloblastic anemia due to vitamin B12 deficiency High total serum IgM Expected: 12/02/2023 (Approximate), Expires: 09/08/2024 [facility] Work Phone: Comment on above: Expected: 12/02/2023 (Approximate), Expi res: 09/08/2024 Start: 12-02-2023 End: 09-08-2024 Folate [Mass/volume] in Serum or Plasma FOLATE, SERUM Lab Routine Megaloblastic anemia due to vitamin B12 deficiency High total serum IgM Expected: 12/02/2023 (Approximate), Expires: 09/08/2024 [facility] Work Phone: Comment on above: Expected: 12/02/2023 (Approximate), Expi res: 09/08/2024 Start: 12-02-2023 End: 03-02-2024 IgA [Mass/volume] in Serum or Plasma IMMUNOGLOBULIN A Lab Routine Megaloblastic anemia due to vitamin B12 deficiency High total serum IgM Expected: 12/02/2023 (Approximate), Expires: 03/02/2024 [facility] Work Phone: Comment on above: Expected: 12/02/2023 (Approximate), Expi res: 03/02/2024 Start: 12-02-2023 End: 03-02-2024 IgE [Units/volume] in Serum or Plasma IMMUNOGLOBULIN E Lab Routine Megaloblastic anemia due to vitamin B12 deficiency High total serum IgM Expected: 12/02/2023 (Approximate), Expires: 03/02/2024 [facility] Work Phone: Comment on above: Expected: 12/02/2023 (Approximate), Expi res: 03/02/2024 Start: 12-02-2023 End: 03-02-2024 IgG [Mass/volume] in Serum or Plasma IMMUNOGLOBULIN G Lab Routine Megaloblastic anemia due to vitamin B12 deficiency High total serum IgM Expected: 12/02/2023 (Approximate), Expires: 03/02/2024 [facility] Work Phone: Comment on above: Expected: 12/02/2023 (Approximate), Expi res: 03/02/2024 Start: 12-02-2023 End: 03-02-2024 IgM [Mass/volume] in Serum or Plasma IMMUNOGLOBULIN M Lab Routine Megaloblastic anemia due to vitamin B12 deficiency High total serum IgM Expected: 12/02/2023 (Approximate), Expires: 03/02/2024 [facility] Work Phone: Comment on above: Expected: 12/02/2023 (Approximate), Expi res: 03/02/2024 Start: 12-02-2023 End: 09-08-2024 Iron and Iron binding capacity panel - Serum or Plasma IRON AND TIBC Lab Routine Megaloblastic anemia due to vitamin B12 deficiency High total serum IgM Expected: 12/02/2023 (Approximate), Expires: 09/08/2024 [facility] Work Phone: Comment on above: Expected: 12/02/2023 (Approximate), Expi res: 09/08/2024 Start: 11-15-2023 End: 11-15-2023 Specialty Pharmacy 11/15/2023 10:00 AM EDT Specialty Pharmacy [facility] [address] [place], [place] [id number] Pharmacist, [facility] [address] [place] [address] [address] [place] [place] [phone] refill - benlysta- NCA - pa exp: 02/04/24- [facility] Comment on above: refill - benlysta- NCA 09/2024-urs- pa exp: 02/04/24- Start: 10-29-2023 End: 10-29-2023 Nursing evaluation of patient and report 10/29/2023 11:00 AM EDT Nurse Visit Hematology/Oncology [address] [place] [address] Cele Marshall Nurse Dre [address] [place] [address] b12 Hematology/Oncology Comment on above: b12 Start: 10-15-2023 End: 10-15-2023 Specialty Pharmacy 10/15/2023 10:00 AM EDT Specialty Pharmacy [facility] [address] [place] [id number] Pharmacist, [facility] [address] [place] [address] [address] [place] [phone] refill - benlysta-Thursdays- pa exp: 02/04/24-l/m 10/11 [facility] Comment on above: refill - benlysta-Thursdays- pa exp: 01/2224-l/m 10/11 Start: 10-12-2023 End: 10-12-2023 Specialty Pharmacy 10/12/2023 10:00 AM EDT Specialty Pharmacy [facility] [address] [place] [id number] Pharmacist, [facility] [address] [place] [address] [place] [address] refill - benlysta-Thursdays- pa exp: 02/04/24- [facility] Comment on above: refill - benlysta-Thursdays- pa exp: 01/22 08/14- Start: 10-05-2023 End: 10-05-2023 Patient encounter procedure 10/05/2023 8:00 AM EDT [facility] [address] [place] [address] Lynne Ni MD [address] [facility] [place] [address] 6 mo f/u for Lupus Rheumatology Comment on above: 6 mo f/u for Lupus Start: 10-01-2023 End: 10-01-2023 Nursing evaluation of patient and report 10/01/2023 11:00 AM EDT Nurse Visit Hematology/Oncology [address] [place] [address] Cele Marshall Nurse Dre [address] [place] [address] b12 Hematology/Oncology Comment on above: b12 Start: 09-16-2023 End: 09-16-2023 Specialty Pharmacy 09/16/2023 10:00 AM EDT Specialty Pharmacy [facility] [address] [place], [place] [id number] [place] [address] Pharmacist, [facility] [address] [place] [address] [place] [address] refill - benlysta-Thursdays- pa exp: 02/04/24-lvm [facility] Comment on above: refill - benlysta-Thursdays- pa exp: 01/22 08/14-lvm Start: 09-13-2023 End: 09-13-2023 Patient encounter procedure 09/13/2023 9:00 AM EDT Office Visit [facility] [address] [place] [address] Juan Luis Richardson MD [address] [facility] [address] [place] [address] [phone] [facility] Start: 07-19-2023 End: 07-19-2023 Patient encounter procedure [facility] Start: 07-15-2023 End: 07-15-2023 Patient encounter procedure 07/15/2023 10:50 AM EST Office Visit [facility] [address] [place] [phone] Bernabe English MD [address] [place] [address] [facility] Start: 07-06-2023 End: 07-06-2023 Patient encounter procedure 07/06/2023 2:30 PM EST Office Visit [facility] [address] [facility] [address] [place] [phone] Juan Luis Richardson MD [address] [facility] [address] [place] [address] [phone] [facility] [address] Start: 07-06-2023 End: 07-06-2024 Protein electrophoresis, serum Protein electrophoresis, serum Lab Routine Autoimmune disease (CMS/HCC) Autonomic dysfunction Expected: 07/06/2023 (Approximate), Expires: 07/06/2024 [facility] Work Phone: Comment on above: Expected: 07/06/2023 (Approximate), Expi res: 07/06/2024 Start: 07-06-2023 End: 07-06-2024 Protein electrophoresis, urine Protein electrophoresis, urine Lab Routine Autoimmune disease (CMS/HCC) Autonomic dysfunction Expected: 07/06/2023 (Approximate), Expires: 07/06/2024 [facility] Comment on above: Expected: 07/06/2023 (Approximate), Expi res: 07/06/2024 Start: 06-09-2023 End: 06-09-2024 Holter monitor study Holter Or Event [employer] [facility] [employer] Routine Irregular heart rate Expected: 06/09/2023 (Approximate), Expires: 06/09/2024 [facility] Work Phone: Comment on above: Expected: 06/09/2023 (Approximate), Expi res: 06/09/2024 Start: 06-09-2023 End: 06-09-2024 Lipid 1996 panel - Serum or Plasma Lipid Panel Lab Routine Primary hypertension Expected: 06/09/2023 (Approximate), Expires: 06/09/2024 [facility] Work Phone: Comment on above: Expected: 06/09/2023 (Approximate), Expi res: 06/09/2024 Start: 06-09-2023 End: 06-09-2024 Thyrotropin [Units/volume] in Serum or Plasma Thyroid Stimulating Hormone Lab Routine Irregular heart rate Expected: 06/09/2023 (Approximate), Expires: 06/09/2024 [facility] Work Phone: Comment on above: Expected: 06/09/2023 (Approximate), Expi res: 06/09/2024 Start: 06-09-2023 End: 06-09-2024 Thyroxine (T4) free [Mass/volume] in Serum or Plasma Thyroxine, Free Lab Routine Irregular heart rate Expected: 06/09/2023 (Approximate), Expires: 06/09/2024 [facility] Work Phone: Comment on above: Expected: 06/09/2023 (Approximate), Expi res: 06/09/2024 Start: 06-09-2023 End: 06-09-2025 US Heart Transthoracic Transthoracic Echo (TTE) Complete Echocardiography Routine Irregular heart rate Obstructive sleep apnea syndrome Expected: 06/09/2023 (Approximate), Expires: 06/09/2025 [facility] Service [facility] Work Phone: Comment on above: Expected: 06/09/2023 (Approximate), Expi res: 06/09/2025 Start: 04-25-2023 End: 01-25-2024 25-hydroxyvitamin D3 [Mass/volume] in Serum or Plasma VITAMIN D 25 HYDROXY Lab Routine Vitamin D deficiency Expected: 04/25/2023 (Approximate), Expires: 01/25/2024 [facility] Work Phone: Comment on above: Expected: 04/25/2023 (Approximate), Expi res: 01/25/2024 Start: 04-25-2023 End: 01-25-2024 C reactive protein [Mass/volume] in Serum or Plasma C-REACTIVE PROTEIN (CRP) Lab Routine Elevated sed rate Elevated C-reactive protein (CRP) Expected: 04/25/2023 (Approximate), Expires: 01/25/2024 [facility] Work Phone: Comment on above: Expected: 04/25/2023 (Approximate), Expi res: 01/25/2024 Start: 04-25-2023 End: 01-25-2024 CBC panel - Blood by Automated count CBC Lab Routine Anemia of chronic disease Expected: 04/25/2023 (Approximate), Expires: 01/25/2024 [facility] Work Phone: Comment on above: Expected: 04/25/2023 (Approximate), Expi res: 01/25/2024 Start: 04-25-2023 End: 01-25-2024 Comprehensive metabolic 2000 panel - Serum or Plasma COMP METABOLIC PANEL Lab Routine Elevated LFTs Expected: 04/25/2023 (Approximate), Expires: 01/25/2024 [facility] Work Phone: Comment on above: Expected: 04/25/2023 (Approximate), Expi res: 01/25/2024 Start: 04-25-2023 End: 01-25-2024 Erythrocyte sedimentation rate SED RATE WESTERGREN Lab Routine Elevated sed rate Elevated C-reactive protein (CRP) Expected: 04/25/2023 (Approximate), Expires: 01/25/2024 [facility] Work Phone: Comment on above: Expected: 04/25/2023 (Approximate), Expi res: 01/25/2024 Start: 04-20-2023 COVID-19 Vaccine (4 - Pfizer risk series) COVID-19 Vaccine (4 - Pfizer risk series) [facility] Start: 04-20-2023 Covid-19 Vaccine ( season) Covid-19 Vaccine () [facility] Start: 04-20-2023 Covid-19 Vaccine ( season) Covid-19 Vaccine () [facility] Start: 04-16-2023 End: 02-20-2024 CBC W Auto Differential panel - Blood CBC + DIFF Lab Routine Megaloblastic anemia due to vitamin B12 deficiency Elevated sed rate Chronic fatigue and malaise High total serum IgM JOSE RAFAEL (obstructive sleep apnea) Expected: 04/16/2023 (Approximate), Expires: 02/20/2024 [facility] Work Phone: Comment on above: Expected: 04/16/2023 (Approximate), Expi res: 02/20/2024 Start: 04-16-2023 End: 02-20-2024 Cobalamin (Vitamin B12) [Mass/volume] in Serum or Plasma VITAMIN B12 BLOOD Lab Routine Megaloblastic anemia due to vitamin B12 deficiency Elevated sed rate Chronic fatigue and malaise High total serum IgM JOSE RAFAEL (obstructive sleep apnea) Expected: 04/16/2023 (Approximate), Expires: 02/20/2024 [facility] Work Phone: Comment on above: Expected: 04/16/2023 (Approximate), Expi res: 02/20/2024 Start: 04-16-2023 End: 02-20-2024 Comprehensive metabolic 2000 panel - Serum or Plasma COMP METABOLIC PANEL Lab Routine Megaloblastic anemia due to vitamin B12 deficiency Elevated sed rate Chronic fatigue and malaise High total serum IgM JOSE RAFAEL (obstructive sleep apnea) Expected: 04/16/2023 (Approximate), Expires: 02/20/2024 [facility] Work Phone: Comment on above: Expected: 04/16/2023 (Approximate), Expi res: 02/20/2024 Start: 04-16-2023 End: 02-20-2024 Ferritin [Mass/volume] in Serum or Plasma FERRITIN BLD Lab Routine Megaloblastic anemia due to vitamin B12 deficiency Elevated sed rate Chronic fatigue and malaise High total serum IgM JOSE RAFAEL (obstructive sleep apnea) Expected: 04/16/2023 (Approximate), Expires: 02/20/2024 [facility] Work Phone: Comment on above: Expected: 04/16/2023 (Approximate), Expi res: 02/20/2024 Start: 04-16-2023 End: 02-20-2024 Folate [Mass/volume] in Serum or Plasma FOLATE SERUM Lab Routine Megaloblastic anemia due to vitamin B12 deficiency Elevated sed rate Chronic fatigue and malaise High total serum IgM JOSE RAFAEL (obstructive sleep apnea) Expected: 04/16/2023 (Approximate), Expires: 02/20/2024 [facility] Work Phone: Comment on above: Expected: 04/16/2023 (Approximate), Expi res: 02/20/2024 Start: 04-16-2023 End: 02-20-2024 Iron and Iron binding capacity panel - Serum or Plasma IRON + TIBC Lab Routine Megaloblastic anemia due to vitamin B12 deficiency Elevated sed rate Chronic fatigue and malaise High total serum IgM JOSE RAFAEL (obstructive sleep apnea) Expected: 04/16/2023 (Approximate), Expires: 02/20/2024 [facility] Work Phone: Comment on above: Expected: 04/16/2023 (Approximate), Expi res: 02/20/2024 Start: 03-17-2023 Diabetes mellitus screening Diabetes Screening [facility] Start: 03-10-2023 End: 06-09-2023 Insulin [Units/volume] in Serum or Plasma INSULIN ASSAY BLOOD Lab Routine Insulin resistance, unspecified Expected: 03/10/2023, Expires: 06/09/2023 [facility] Work Phone: Comment on above: Expected: 03/10/2023, Expires: Start: 03-10-2023 End: 06-09-2023 INSULIN ANTIBODY BLD INSULIN ANTIBODY BLD Lab Routine Insulin resistance, unspecified Expected: 03/10/2023, Expires: 06/09/2023 [facility] Work Phone: Comment on above: Expected: 03/10/2023, Expires: Start: 02-11-2023 End: 02-08-2024 [id number] [Mass/volume] in Serum or Plasma B2 MICROGLOBULIN B Lab Routine Megaloblastic anemia due to vitamin B12 deficiency High total serum IgM Elevated sed rate Expected: 02/11/2023 (Approximate), Expires: 02/08/2024 [facility] Work Phone: Comment on above: Expected: 02/11/2023 (Approximate), Expi res: 02/08/2024 Start: 02-11-2023 End: 02-08-2024 Calcium.ionized [Moles/volume] in Blood CALCIUM IONIZED BLOOD Lab Routine Megaloblastic anemia due to vitamin B12 deficiency High total serum IgM Elevated sed rate Expected: 02/11/2023 (Approximate), Expires: 02/08/2024 [facility] Work Phone: Comment on above: Expected: 02/11/2023 (Approximate), Expi res: 02/08/2024 Start: 02-11-2023 End: 02-08-2024 CBC W Auto Differential panel - Blood CBC + DIFF Lab Routine Megaloblastic anemia due to vitamin B12 deficiency High total serum IgM Elevated sed rate Expected: 02/11/2023 (Approximate), Expires: 02/08/2024 [facility] Work Phone: Comment on above: Expected: 02/11/2023 (Approximate), Expi res: 02/08/2024 Start: 02-11-2023 End: 02-08-2024 Cobalamin (Vitamin B12) [Mass/volume] in Serum or Plasma VITAMIN B12 BLOOD Lab Routine Megaloblastic anemia due to vitamin B12 deficiency High total serum IgM Elevated sed rate Expected: 02/11/2023 (Approximate), Expires: 02/08/2024 [facility] Work Phone: Comment on above: Expected: 02/11/2023 (Approximate), Expi res: 02/08/2024 Start: 02-11-2023 End: 02-08-2024 Comprehensive metabolic 2000 panel - Serum or Plasma COMP METABOLIC PANEL Lab Routine Megaloblastic anemia due to vitamin B12 deficiency High total serum IgM Elevated sed rate Expected: 02/11/2023 (Approximate), Expires: 02/08/2024 [facility] Work Phone: Comment on above: Expected: 02/11/2023 (Approximate), Expi res: 02/08/2024 Start: 02-11-2023 End: 02-08-2024 Ferritin [Mass/volume] in Serum or Plasma FERRITIN BLD Lab Routine Megaloblastic anemia due to vitamin B12 deficiency High total serum IgM Elevated sed rate Expected: 02/11/2023 (Approximate), Expires: 02/08/2024 [facility] Work Phone: Comment on above: Expected: 02/11/2023 (Approximate), Expi res: 02/08/2024 Start: 02-11-2023 End: 02-08-2024 Folate [Mass/volume] in Serum or Plasma FOLATE SERUM Lab Routine Megaloblastic anemia due to vitamin B12 deficiency High total serum IgM Elevated sed rate Expected: 02/11/2023 (Approximate), Expires: 02/08/2024 [facility] Work Phone: Comment on above: Expected: 02/11/2023 (Approximate), Expi res: 02/08/2024 Start: 02-11-2023 End: 02-08-2024 Iron and Iron binding capacity panel - Serum or Plasma IRON + TIBC Lab Routine Megaloblastic anemia due to vitamin B12 deficiency High total serum IgM Elevated sed rate Expected: 02/11/2023 (Approximate), Expires: 02/08/2024 [facility] Work Phone: Comment on above: Expected: 02/11/2023 (Approximate), Expi res: 02/08/2024 Start: 02-11-2023 End: 04-13-2023 KAPPA/FARMER,FREE,SER KAPPA/FARMER,FREE,SER Lab Routine Megaloblastic anemia due to vitamin B12 deficiency High total serum IgM Elevated sed rate Expected: 02/11/2023 (Approximate), Expires: 04/13/2023 [facility] Work Phone: Comment on above: Expected: 02/11/2023 (Approximate), Expi res: 04/13/2023 Start: 02-11-2023 End: 02-08-2024 Lactate dehydrogenase [Enzymatic activity/volume] in Serum or Plasma LD LACTATE DEHYDRO Lab Routine Megaloblastic anemia due to vitamin B12 deficiency High total serum IgM Elevated sed rate Expected: 02/11/2023 (Approximate), Expires: 02/08/2024 [facility] Work Phone: Comment on above: Expected: 02/11/2023 (Approximate), Expi res: 02/08/2024 Start: 02-11-2023 End: 02-08-2024 MONOCLONAL PROTEIN, SERUM (BLOOD) MONOCLONAL PROTEIN, SERUM (BLOOD) Lab Routine Megaloblastic anemia due to vitamin B12 deficiency High total serum IgM Elevated sed rate Expected: 02/11/2023 (Approximate), Expires: 02/08/2024 [facility] Work Phone: Comment on above: Expected: 02/11/2023 (Approximate), Expi res: 02/08/2024 Start: 02-11-2023 End: 02-08-2024 Phosphate [Mass/volume] in Serum or Plasma PHOSPHORUS INORGANIC Lab Routine Megaloblastic anemia due to vitamin B12 deficiency High total serum IgM Elevated sed rate Expected: 02/11/2023 (Approximate), Expires: 02/08/2024 [facility] Work Phone: Comment on above: Expected: 02/11/2023 (Approximate), Expi res: 02/08/2024 Start: 02-11-2023 End: 02-08-2024 PROTEIN ELECTROPHORESIS SERUM W/INTERP PROTEIN ELECTROPHORESIS SERUM W/INTERP Lab Routine Megaloblastic anemia due to vitamin B12 deficiency High total serum IgM Elevated sed rate Expected: 02/11/2023 (Approximate), Expires: 02/08/2024 [facility] Work Phone: Comment on above: Expected: 02/11/2023 (Approximate), Expi res: 02/08/2024 Start: 02-11-2023 End: 02-08-2024 Urate [Mass/volume] in Serum or Plasma URIC ACID BLOOD Lab Routine Megaloblastic anemia due to vitamin B12 deficiency High total serum IgM Elevated sed rate Expected: 02/11/2023 (Approximate), Expires: 02/08/2024 [facility] Work Phone: Comment on above: Expected: 02/11/2023 (Approximate), Expi res: 02/08/2024 Start: 01-22-2023 Influenza vaccination [facility] Start: 12-17-2022 End: 10-23-2023 CBC W Auto Differential panel - Blood CBC + DIFF Lab Routine Megaloblastic anemia due to vitamin B12 deficiency Expected: 12/17/2022 (Approximate), Expires: 10/23/2023 [facility] Work Phone: Comment on above: Expected: 12/17/2022 (Approximate), Expi res: 10/23/2023 Start: 12-17-2022 End: 10-23-2023 Cobalamin (Vitamin B12) [Mass/volume] in Serum or Plasma VITAMIN B12 BLOOD Lab Routine Megaloblastic anemia due to vitamin B12 deficiency Expected: 12/17/2022 (Approximate), Expires: 10/23/2023 [facility] Work Phone: Comment on above: Expected: 12/17/2022 (Approximate), Expi res: 10/23/2023 Start: 12-17-2022 End: 10-23-2023 Comprehensive metabolic 2000 panel - Serum or Plasma COMP METABOLIC PANEL Lab Routine Megaloblastic anemia due to vitamin B12 deficiency Expected: 12/17/2022 (Approximate), Expires: 10/23/2023 [facility] Work Phone: Comment on above: Expected: 12/17/2022 (Approximate), Expi res: 10/23/2023 Start: 12-17-2022 End: 10-23-2023 Ferritin [Mass/volume] in Serum or Plasma FERRITIN BLD Lab Routine Megaloblastic anemia due to vitamin B12 deficiency Expected: 12/17/2022 (Approximate), Expires: 10/23/2023 [facility] Work Phone: Comment on above: Expected: 12/17/2022 (Approximate), Expi res: 10/23/2023 Start: 12-17-2022 End: 10-23-2023 Folate [Mass/volume] in Serum or Plasma FOLATE SERUM Lab Routine Megaloblastic anemia due to vitamin B12 deficiency Expected: 12/17/2022 (Approximate), Expires: 10/23/2023 [facility] Work Phone: Comment on above: Expected: 12/17/2022 (Approximate), Expi res: 10/23/2023 Start: 12-17-2022 End: 10-23-2023 Iron and Iron binding capacity panel - Serum or Plasma IRON + TIBC Lab Routine Megaloblastic anemia due to vitamin B12 deficiency Expected: 12/17/2022 (Approximate), Expires: 10/23/2023 [facility] Work Phone: Comment on above: Expected: 12/17/2022 (Approximate), Expi res: 10/23/2023 Start: 10-23-2022 End: 12-23-2022 25-hydroxyvitamin D3 [Mass/volume] in Serum or Plasma VITAMIN D 25 HYDROXY Lab Routine Megaloblastic anemia due to vitamin B12 deficiency Elevated sed rate High total serum IgM Chronic fatigue and malaise JOSE RAFAEL (obstructive sleep apnea) Expected: 10/23/2022, Expires: 12/23/2022 [facility] Work Phone: Comment on above: Expected: 10/23/2022, Expires: 3 Start: 10-23-2022 End: 12-23-2022 C reactive protein [Mass/volume] in Serum or Plasma C-REACTIVE PROTEIN (CRP) Lab Routine Megaloblastic anemia due to vitamin B12 deficiency Elevated sed rate High total serum IgM Chronic fatigue and malaise JOSE RAFAEL (obstructive sleep apnea) Expected: 10/23/2022, Expires: 12/23/2022 [facility] Work Phone: Comment on above: Expected: 10/23/2022, Expires: 3 Start: 10-23-2022 End: 12-23-2022 CBC W Auto Differential panel - Blood CBC + DIFF Lab Routine Megaloblastic anemia due to vitamin B12 deficiency Elevated sed rate High total serum IgM Chronic fatigue and malaise JOSE RAFAEL (obstructive sleep apnea) Expected: 10/23/2022, Expires: 12/23/2022 [facility] Work Phone: Comment on above: Expected: 10/23/2022, Expires: Start: 10-23-2022 End: 12-23-2022 Cobalamin (Vitamin B12) [Mass/volume] in Serum or Plasma VITAMIN B12 BLOOD Lab Routine Megaloblastic anemia due to vitamin B12 deficiency Elevated sed rate High total serum IgM Chronic fatigue and malaise JOSE RAFAEL (obstructive sleep apnea) Expected: 10/23/2022, Expires: 12/23/2022 [facility] Work Phone: Comment on above: Expected: 10/23/2022, Expires: 3 Start: 10-23-2022 End: 12-23-2022 Comprehensive metabolic 2000 panel - Serum or Plasma COMP METABOLIC PANEL Lab Routine Megaloblastic anemia due to vitamin B12 deficiency Elevated sed rate High total serum IgM Chronic fatigue and malaise JOSE RAFAEL (obstructive sleep apnea) Expected: 10/23/2022, Expires: 12/23/2022 [facility] Work Phone: Comment on above: Expected: 10/23/2022, Expires: 3 Start: 10-23-2022 End: 12-23-2022 Erythrocyte sedimentation rate SED RATE WESTERGREN Lab Routine Megaloblastic anemia due to vitamin B12 deficiency Elevated sed rate High total serum IgM Chronic fatigue and malaise JOSE RAFAEL (obstructive sleep apnea) Expected: 10/23/2022, Expires: 12/23/2022 [facility] Work Phone: Comment on above: Expected: 10/23/2022, Expires: 3 Start: 10-23-2022 End: 12-23-2022 Lactate dehydrogenase [Enzymatic activity/volume] in Serum or Plasma LD LACTATE DEHYDRO Lab Routine Megaloblastic anemia due to vitamin B12 deficiency Elevated sed rate High total serum IgM Chronic fatigue and malaise JOSE RAFAEL (obstructive sleep apnea) Expected: 10/23/2022, Expires: 12/23/2022 [facility] Work Phone: Comment on above: Expected: 10/23/2022, Expires: Start: 10-23-2022 End: 12-23-2022 MONOCLONAL PROTEIN, SERUM (BLOOD) MONOCLONAL PROTEIN, SERUM (BLOOD) Lab Routine Megaloblastic anemia due to vitamin B12 deficiency Elevated sed rate High total serum IgM Chronic fatigue and malaise JOSE RAFAEL (obstructive sleep apnea) Expected: 10/23/2022, Expires: 12/23/2022 [facility] Work Phone: Comment on above: Expected: 10/23/2022, Expires: Start: 10-23-2022 End: 12-23-2022 PROT ELECT SERUM WITH DANA AND INTERP PROT ELECT SERUM WITH ADNA AND INTERP Lab Routine Megaloblastic anemia due to vitamin B12 deficiency Elevated sed rate High total serum IgM Chronic fatigue and malaise JOSE RAFAEL (obstructive sleep apnea) Expected: 10/23/2022, Expires: 12/23/2022 [facility] Work Phone: Comment on above: Expected: 10/23/2022, Expires: Start: 09-19-2022 End: 08-20-2023 CBC panel - Blood by Automated count CBC Lab Routine Anemia of chronic disease Expected: 09/19/2022 (Approximate), Expires: 08/20/2023 [facility] Work Phone: Comment on above: Expected: 09/19/2022 (Approximate), Expi res: 08/20/2023 Start: 09-19-2022 End: 08-20-2023 Comprehensive metabolic 2000 panel - Serum or Plasma COMP METABOLIC PANEL Lab Routine Elevated LFTs Expected: 09/19/2022 (Approximate), Expires: 08/20/2023 [facility] Work Phone: Comment on above: Expected: 09/19/2022 (Approximate), Expi res: 08/20/2023 Start: 09-19-2022 End: 11-19-2022 TPMT PHENOTYPE/ENZYME ACTIVITY TPMT PHENOTYPE/ENZYME ACTIVITY Lab Routine 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 group home 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 Expected: 09/19/2022 (Approximate), Expires: 11/19/2022 [facility] Work Phone: Comment on above: Expected: 09/19/2022 (Approximate), Expi res: 11/19/2022 Start: 08-28-2022 End: 10-28-2022 25-hydroxyvitamin D3 [Mass/volume] in Serum or Plasma VITAMIN D 25 HYDROXY Lab Routine Megaloblastic anemia due to vitamin B12 deficiency Elevated sed rate High total serum IgM Chronic fatigue and malaise Expected: 08/28/2022 (Approximate), Expires: 10/28/2022 [facility] Work Phone: Comment on above: Expected: 08/28/2022 (Approximate), Expi res: 10/28/2022 Start: 08-28-2022 End: 07-26-2023 [id number] [Mass/volume] in Serum or Plasma B2 MICROGLOBULIN B Lab Routine Megaloblastic anemia due to vitamin B12 deficiency Elevated sed rate High total serum IgM Chronic fatigue and malaise Expected: 08/28/2022 (Approximate), Expires: 07/26/2023 [facility] Work Phone: Comment on above: Expected: 08/28/2022 (Approximate), Expi res: 07/26/2023 Start: 08-28-2022 End: 10-28-2022 C reactive protein [Mass/volume] in Serum or Plasma C-REACTIVE PROTEIN (CRP) Lab Routine Megaloblastic anemia due to vitamin B12 deficiency Elevated sed rate High total serum IgM Chronic fatigue and malaise Expected: 08/28/2022 (Approximate), Expires: 10/28/2022 [facility] Work Phone: Comment on above: Expected: 08/28/2022 (Approximate), Expi res: 10/28/2022 Start: 08-28-2022 End: 07-26-2023 Calcium.ionized [Moles/volume] in Blood CALCIUM IONIZED BLOOD Lab Routine Megaloblastic anemia due to vitamin B12 deficiency Elevated sed rate High total serum IgM Chronic fatigue and malaise Expected: 08/28/2022 (Approximate), Expires: 07/26/2023 [facility] Work Phone: Comment on above: Expected: 08/28/2022 (Approximate), Expi res: 07/26/2023 Start: 08-28-2022 End: 07-26-2023 CBC W Auto Differential panel - Blood CBC + DIFF Lab Routine Megaloblastic anemia due to vitamin B12 deficiency Elevated sed rate High total serum IgM Chronic fatigue and malaise Expected: 08/28/2022 (Approximate), Expires: 07/26/2023 [facility] Work Phone: Comment on above: Expected: 08/28/2022 (Approximate), Expi res: 07/26/2023 Start: 08-28-2022 End: 10-28-2022 Cobalamin (Vitamin B12) [Mass/volume] in Serum or Plasma VITAMIN B12 BLOOD Lab Routine Megaloblastic anemia due to vitamin B12 deficiency Elevated sed rate High total serum IgM Chronic fatigue and malaise Expected: 08/28/2022 (Approximate), Expires: 10/28/2022 [facility] Work Phone: Comment on above: Expected: 08/28/2022 (Approximate), Expi res: 10/28/2022 Start: 08-28-2022 End: 07-26-2023 Comprehensive metabolic 2000 panel - Serum or Plasma COMP METABOLIC PANEL Lab Routine Megaloblastic anemia due to vitamin B12 deficiency Elevated sed rate High total serum IgM Chronic fatigue and malaise Expected: 08/28/2022 (Approximate), Expires: 07/26/2023 [facility] Work Phone: Comment on above: Expected: 08/28/2022 (Approximate), Expi res: 07/26/2023 Start: 08-28-2022 End: 10-28-2022 Erythrocyte sedimentation rate SED RATE WESTERGREN Lab Routine Megaloblastic anemia due to vitamin B12 deficiency Elevated sed rate High total serum IgM Chronic fatigue and malaise Expected: 08/28/2022 (Approximate), Expires: 10/28/2022 [facility] Work Phone: Comment on above: Expected: 08/28/2022 (Approximate), Expi res: 10/28/2022 Start: 08-28-2022 End: 10-28-2022 KAPPA/FARMER,FREE,SER KAPPA/FARMER,FREE,SER Lab Routine Megaloblastic anemia due to vitamin B12 deficiency Elevated sed rate High total serum IgM Chronic fatigue and malaise Expected: 08/28/2022 (Approximate), Expires: 10/28/2022 [facility] Work Phone: Comment on above: Expected: 08/28/2022 (Approximate), Expi res: 10/28/2022 Start: 08-28-2022 End: 07-26-2023 Lactate dehydrogenase [Enzymatic activity/volume] in Serum or Plasma LD LACTATE DEHYDRO Lab Routine Megaloblastic anemia due to vitamin B12 deficiency Elevated sed rate High total serum IgM Chronic fatigue and malaise Expected: 08/28/2022 (Approximate), Expires: 07/26/2023 [facility] Work Phone: Comment on above: Expected: 08/28/2022 (Approximate), Expi res: 07/26/2023 Start: 08-28-2022 End: 07-26-2023 MONOCLONAL PROTEIN, SERUM (BLOOD) MONOCLONAL PROTEIN, SERUM (BLOOD) Lab Routine Megaloblastic anemia due to vitamin B12 deficiency Elevated sed rate High total serum IgM Chronic fatigue and malaise Expected: 08/28/2022 (Approximate), Expires: 07/26/2023 [facility] Work Phone: Comment on above: Expected: 08/28/2022 (Approximate), Expi res: 07/26/2023 Start: 08-28-2022 End: 07-26-2023 Phosphate [Mass/volume] in Serum or Plasma PHOSPHORUS INORGANIC Lab Routine Megaloblastic anemia due to vitamin B12 deficiency Elevated sed rate High total serum IgM Chronic fatigue and malaise Expected: 08/28/2022 (Approximate), Expires: 07/26/2023 [facility] Work Phone: Comment on above: Expected: 08/28/2022 (Approximate), Expi res: 07/26/2023 Start: 08-28-2022 End: 07-26-2023 PROTEIN ELECTROPHORESIS SERUM W/INTERP PROTEIN ELECTROPHORESIS SERUM W/INTERP Lab Routine Megaloblastic anemia due to vitamin B12 deficiency Elevated sed rate High total serum IgM Chronic fatigue and malaise Expected: 08/28/2022 (Approximate), Expires: 07/26/2023 [facility] Work Phone: Comment on above: Expected: 08/28/2022 (Approximate), Expi res: 07/26/2023 Start: 08-28-2022 End: 07-26-2023 Urate [Mass/volume] in Serum or Plasma URIC ACID BLOOD Lab Routine Megaloblastic anemia due to vitamin B12 deficiency Elevated sed rate High total serum IgM Chronic fatigue and malaise Expected: 08/28/2022 (Approximate), Expires: 07/26/2023 [facility] Work Phone: Comment on above: Expected: 08/28/2022 (Approximate), Expi res: 07/26/2023 Start: 07-15-2022 End: 05-20-2023 [id number] [Mass/volume] in Serum or Plasma B2 MICROGLOBULIN B Lab Routine High total serum IgM Expected: 07/15/2022 (Approximate), Expires: 05/20/2023 [facility] Work Phone: Comment on above: Expected: 07/15/2022 (Approximate), Expi res: 05/20/2023 Start: 07-15-2022 End: 05-20-2023 Calcium.ionized [Moles/volume] in Blood CALCIUM IONIZED BLOOD Lab Routine High total serum IgM Expected: 07/15/2022 (Approximate), Expires: 05/20/2023 [facility] Work Phone: Comment on above: Expected: 07/15/2022 (Approximate), Expi res: 05/20/2023 Start: 07-15-2022 End: 05-20-2023 CBC W Auto Differential panel - Blood CBC + DIFF Lab Routine High total serum IgM Expected: 07/15/2022 (Approximate), Expires: 05/20/2023 [facility] Work Phone: Comment on above: Expected: 07/15/2022 (Approximate), Expi res: 05/20/2023 Start: 07-15-2022 End: 05-20-2023 Comprehensive metabolic 2000 panel - Serum or Plasma COMP METABOLIC PANEL Lab Routine High total serum IgM Expected: 07/15/2022 (Approximate), Expires: 05/20/2023 [facility] Work Phone: Comment on above: Expected: 07/15/2022 (Approximate), Expi res: 05/20/2023 Start: 07-15-2022 End: 09-14-2022 KAPPA/FARMER,FREE,SER KAPPA/FARMER,FREE,SER Lab Routine High total serum IgM Expected: 07/15/2022 (Approximate), Expires: 09/14/2022 [facility] Work Phone: Comment on above: Expected: 07/15/2022 (Approximate), Expi res: 09/14/2022 Start: 07-15-2022 End: 05-20-2023 Lactate dehydrogenase [Enzymatic activity/volume] in Serum or Plasma LD LACTATE DEHYDRO Lab Routine High total serum IgM Expected: 07/15/2022 (Approximate), Expires: 05/20/2023 [facility] Work Phone: Comment on above: Expected: 07/15/2022 (Approximate), Expi res: 05/20/2023 Start: 07-15-2022 End: 05-20-2023 MONOCLONAL PROTEIN, SERUM (BLOOD) MONOCLONAL PROTEIN, SERUM (BLOOD) Lab Routine High total serum IgM Expected: 07/15/2022 (Approximate), Expires: 05/20/2023 [facility] Work Phone: Comment on above: Expected: 07/15/2022 (Approximate), Expi res: 05/20/2023 Start: 07-15-2022 End: 05-20-2023 Phosphate [Mass/volume] in Serum or Plasma PHOSPHORUS INORGANIC Lab Routine High total serum IgM Expected: 07/15/2022 (Approximate), Expires: 05/20/2023 [facility] Work Phone: Comment on above: Expected: 07/15/2022 (Approximate), Expi res: 05/20/2023 Start: 07-15-2022 End: 05-20-2023 PROTEIN ELECTROPHORESIS SERUM W/INTERP PROTEIN ELECTROPHORESIS SERUM W/INTERP Lab Routine High total serum IgM Expected: 07/15/2022 (Approximate), Expires: 05/20/2023 [facility] Work Phone: Comment on above: Expected: 07/15/2022 (Approximate), Expi res: 05/20/2023 Start: 07-15-2022 End: 05-20-2023 Urate [Mass/volume] in Serum or Plasma URIC ACID BLOOD Lab Routine High total serum IgM Expected: 07/15/2022 (Approximate), Expires: 05/20/2023 [facility] Work Phone: Comment on above: Expected: 07/15/2022 (Approximate), Expi res: 05/20/2023 Start: 06-05-2022 End: 03-05-2023 25-hydroxyvitamin D3 [Mass/volume] in Serum or Plasma VITAMIN D 25 HYDROXY Lab Routine Vitamin D deficiency Expected: 06/05/2022 (Approximate), Expires: 03/05/2023 [facility] Work Phone: Comment on above: Expected: 06/05/2022 (Approximate), Expi res: 03/05/2023 Start: 06-05-2022 End: 03-05-2023 C reactive protein [Mass/volume] in Serum or Plasma C-REACTIVE PROTEIN (CRP) Lab Routine Elevated sed rate Elevated C-reactive protein (CRP) Expected: 06/05/2022 (Approximate), Expires: 03/05/2023 [facility] Work Phone: Comment on above: Expected: 06/05/2022 (Approximate), Expi res: 03/05/2023 Start: 06-05-2022 End: 03-05-2023 Cobalamin (Vitamin B12) [Mass/volume] in Serum or Plasma VITAMIN B12 BLOOD Lab Routine Vitamin B12 deficiency Expected: 06/05/2022 (Approximate), Expires: 03/05/2023 [facility] Work Phone: Comment on above: Expected: 06/05/2022 (Approximate), Expi res: 03/05/2023 Start: 06-05-2022 End: 03-05-2023 Erythrocyte sedimentation rate SED RATE WESTERGREN Lab Routine Elevated sed rate Elevated C-reactive protein (CRP) Expected: 06/05/2022 (Approximate), Expires: 03/05/2023 [facility] Work Phone: Comment on above: Expected: 06/05/2022 (Approximate), Expi res: 03/05/2023 Start: 05-06-2022 End: 03-18-2023 [id number] [Mass/volume] in Serum or Plasma B2 MICROGLOBULIN B Lab Routine Megaloblastic anemia due to vitamin B12 deficiency High total serum IgM Expected: 05/06/2022 (Approximate), Expires: 03/18/2023 [facility] Work Phone: Comment on above: Expected: 05/06/2022 (Approximate), Expi res: 03/18/2023 Start: 05-06-2022 End: 03-18-2023 Calcium.ionized [Moles/volume] in Blood CALCIUM IONIZED BLOOD Lab Routine Megaloblastic anemia due to vitamin B12 deficiency High total serum IgM Expected: 05/06/2022 (Approximate), Expires: 03/18/2023 [facility] Work Phone: Comment on above: Expected: 05/06/2022 (Approximate), Expi res: 03/18/2023 Start: 05-06-2022 End: 03-18-2023 CBC W Auto Differential panel - Blood CBC + DIFF Lab Routine Megaloblastic anemia due to vitamin B12 deficiency High total serum IgM Expected: 05/06/2022 (Approximate), Expires: 03/18/2023 [facility] Work Phone: Comment on above: Expected: 05/06/2022 (Approximate), Expi res: 03/18/2023 Start: 05-06-2022 End: 03-18-2023 Comprehensive metabolic 2000 panel - Serum or Plasma COMP METABOLIC PANEL Lab Routine Megaloblastic anemia due to vitamin B12 deficiency High total serum IgM Expected: 05/06/2022 (Approximate), Expires: 03/18/2023 [facility] Work Phone: Comment on above: Expected: 05/06/2022 (Approximate), Expi res: 03/18/2023 Start: 05-06-2022 End: 03-18-2023 Ferritin [Mass/volume] in Serum or Plasma FERRITIN BLD Lab Routine Megaloblastic anemia due to vitamin B12 deficiency High total serum IgM Expected: 05/06/2022 (Approximate), Expires: 03/18/2023 [facility] Work Phone: Comment on above: Expected: 05/06/2022 (Approximate), Expi res: 03/18/2023 Start: 05-06-2022 End: 03-18-2023 Iron and Iron binding capacity panel - Serum or Plasma IRON + TIBC Lab Routine Megaloblastic anemia due to vitamin B12 deficiency High total serum IgM Expected: 05/06/2022 (Approximate), Expires: 03/18/2023 [facility] Work Phone: Comment on above: Expected: 05/06/2022 (Approximate), Expi res: 03/18/2023 Start: 05-06-2022 End: 03-18-2023 Lactate dehydrogenase [Enzymatic activity/volume] in Serum or Plasma LD LACTATE DEHYDRO Lab Routine Megaloblastic anemia due to vitamin B12 deficiency High total serum IgM Expected: 05/06/2022 (Approximate), Expires: 03/18/2023 [facility] Work Phone: Comment on above: Expected: 05/06/2022 (Approximate), Expi res: 03/18/2023 Start: 05-06-2022 End: 03-18-2023 MONOCLONAL PROTEIN, SERUM (BLOOD) MONOCLONAL PROTEIN, SERUM (BLOOD) Lab Routine Megaloblastic anemia due to vitamin B12 deficiency High total serum IgM Expected: 05/06/2022 (Approximate), Expires: 03/18/2023 [facility] Work Phone: Comment on above: Expected: 05/06/2022 (Approximate), Expi res: 03/18/2023 Start: 05-06-2022 End: 03-18-2023 Phosphate [Mass/volume] in Serum or Plasma PHOSPHORUS INORGANIC Lab Routine Megaloblastic anemia due to vitamin B12 deficiency High total serum IgM Expected: 05/06/2022 (Approximate), Expires: 03/18/2023 [facility] Work Phone: Comment on above: Expected: 05/06/2022 (Approximate), Expi res: 03/18/2023 Start: 05-06-2022 End: 03-18-2023 PROTEIN ELECTROPHORESIS SERUM W/INTERP PROTEIN ELECTROPHORESIS SERUM W/INTERP Lab Routine Megaloblastic anemia due to vitamin B12 deficiency High total serum IgM Expected: 05/06/2022 (Approximate), Expires: 03/18/2023 [facility] Work Phone: Comment on above: Expected: 05/06/2022 (Approximate), Expi res: 03/18/2023 Start: 05-06-2022 End: 03-18-2023 Urate [Mass/volume] in Serum or Plasma URIC ACID BLOOD Lab Routine Megaloblastic anemia due to vitamin B12 deficiency High total serum IgM Expected: 05/06/2022 (Approximate), Expires: 03/18/2023 [facility] Work Phone: Comment on above: Expected: 05/06/2022 (Approximate), Expi res: 03/18/2023 Start: 04-05-2022 COVID-19 VACCINE (5 - Pfizer risk series) COVID-19 VACCINE (5 - Pfizer risk series) [facility] Start: 03-09-2022 End: 05-09-2022 Hemoglobin A1c in Blood HGB A1C Lab Routine Elevated glucose Expected: 03/09/2022, Expires: 05/09/2022 [facility] Work Phone: Comment on above: Expected: 03/09/2022, Expires: Start: 02-24-2022 End: 04-26-2022 BARTONELLA AB PANEL BARTONELLA AB PANEL Lab Routine Swelling of lymph nodes Expected: 02/24/2022, Expires: 04/26/2022 [facility] Work Phone: Comment on above: Expected: 02/24/2022, Expires: 2 Start: 02-24-2022 End: 04-26-2022 BRUCELLA AB TOTAL BRUCELLA AB TOTAL Lab Routine Swelling of lymph nodes Expected: 02/24/2022, Expires: 04/26/2022 [facility] Work Phone: Comment on above: Expected: 02/24/2022, Expires: 2 Start: 02-24-2022 End: 04-26-2022 Cryptococcus sp Ag [Presence] in Unspecified specimen by Latex agglutination CRYPTOCOCCUS AG DET Microbiology Routine Swelling of lymph nodes Expected: 02/24/2022, Expires: 04/26/2022 [facility] Work Phone: Comment on above: Expected: 02/24/2022, Expires: 2 Start: 02-24-2022 End: 04-26-2022 HISTOPLASMA AG URINE HISTOPLASMA AG URINE Lab Routine Swelling of lymph nodes Expected: 02/24/2022, Expires: 04/26/2022 [facility] Work Phone: Comment on above: Expected: 02/24/2022, Expires: 2 Start: 02-24-2022 End: 04-26-2022 HIV 1 RNA [#/volume] (viral load) in Serum or Plasma by YESSI with probe detection HIV RNA VIRAL LOAD Lab Routine Swelling of lymph nodes Expected: 02/24/2022, Expires: 04/26/2022 [facility] Work Phone: Comment on above: Expected: 02/24/2022, Expires: 2 Start: 02-24-2022 End: 04-26-2022 SYPHILIS TOTAL W/REFLEX SYPHILIS TOTAL W/REFLEX Lab Routine Swelling of lymph nodes Expected: 02/24/2022, Expires: 04/26/2022 [facility] Work Phone: Comment on above: Expected: 02/24/2022, Expires: 2 Start: 01-22-2022 Influenza vaccination [facility] Start: 08-24-2021 COVID-19 VACCINE (4 - Booster for Pfizer series) COVID-19 VACCINE (4 - Booster for Pfizer series) [facility] Start: 01-22-2021 Influenza vaccination Flu vaccine (Season Ended) [employer] Phone: Start: 2020 Lipid panel Lipid screen [employer] Phone: Start: 2020 Mammography [facility] Start: 2020 Screening for malignant neoplasm of breast [facility] Start: 2010 HPV TESTING HPV TESTING [facility] Start: 2010 Screening for malignant neoplasm of cervix [facility] Start: 2002 DTaP/Tdap/Td Vaccines (1 - Tdap) DTaP/Tdap/Td Vaccines (1 - Tdap) [facility] Start: 2001 PAP TESTING PAP TESTING [facility] Start: 2001 Screening for malignant neoplasm of cervix [facility] Start: 10-05-1999 DTaP/Tdap/Td vaccine (1 - Tdap) DTaP/Tdap/Td vaccine (1 - Tdap) [employer] Phone: Start: 10-05-1999 Hepatitis B Vaccine (1 of 3 - 19+ 3-dose series) Hepatitis B Vaccine (1 of 3 - 19+ 3-dose series) [facility] Start: 10-05-1999 SHINGRIX VACCINE (1 of 2) SHINGRIX VACCINE (1 of 2) [facility] Start: 10-05-1999 Urine microalbumin profile [facility] Start: 10-05-1999 Zoster Vaccines (1 of 2) Zoster Vaccines (1 of 2) [facility] Start: 1998 Hepatitis C screening Hepatitis C Screening [facility] Start: 1998 HIV SCREENING HIV SCREENING [facility] Start: 1998 HIV screening HIV Screening [facility] Start: 10-05-1995 HIV screening HIV screen [employer] Phone: Start: 1992 COVID-19 Vaccine (1) COVID-19 Vaccine (1) [employer] Phone: Start: 10-05-1991 Screening for malignant neoplasm of cervix Cervical Cancer Screening [facility] Start: 1986 PNEUMOCOCCAL (1 - PCV) PNEUMOCOCCAL (1 - PCV) [facility] Start: 1986 Pneumococcal vaccination [facility] Start: 1986 Pneumococcal Vaccine: Pediatrics (0 to 5 Years) and At-Risk Patients (6 to 64 Years) (1 - PCV) Pneumococcal Vaccine: Pediatrics (0 to 5 Years) and At-Risk Patients (6 to 64 Years) (1 - PCV) [facility] Start: 1981 MMR Vaccines (1 of 1 - Standard series) MMR Vaccines (1 of 1 - Standard series) [facility] Start: 1981 Varicella vaccination Varicella Vaccines (1 of 2 - 2-dose childhood series) [facility] Start: 1981 Varicella vaccine (1 of 2 - 2-dose childhood series) Varicella vaccine (1 of 2 - 2-dose childhood series) [employer] Phone: Start: 1980 HEPATITIS B (1 of 3 - 3-dose series) HEPATITIS B (1 of 3 - 3-dose series) [facility] Start: 1980 Hepatitis B Vaccine (1 of 3 - 3-dose series) Hepatitis B Vaccine (1 of 3 - 3-dose series) [facility] Start: 1980 Hepatitis B Vaccines (1 of 3 - 3-dose series) Hepatitis B Vaccines (1 of 3 - 3-dose series) [facility] Start: 1980 Hepatitis C screening Hepatitis C screen [employer] Phone: Start: 1980 HIV screening HIV Screening [facility] Start: 1980 Lipid panel Lipid Panel [facility] Start: 1980 Screening for osteoporosis Bone Density Scan [facility] Start: 1980 Yearly Adult Physical Yearly Adult Physical [facility] Cardiovascular funct ion eval w/tilt table w/mntr TILT TABLE EVALUATION Cardiology Routine POTS (postural orthostatic tachycardia syndrome) Ordered: 03/09/2022 [facility] Work Phone: Comment on above: Ordered: 03/09/2022 End: 10-13-2024 DXA-AXIAL SKELETON DXA-AXIAL SKELETON Radiology Routine Steroid-induced osteoporosis 1 Occurrences starting 02/04/2023 until 03/05/2024 [facility] Work Phone: Comment on above: 1 Occurrences starting 02/04/2023 until 03/05/2024 End: 03-05-2024 DXA-FOREARM SKELETON DXA-FOREARM SKELETON Radiology Routine Steroid-induced osteoporosis 1 Occurrences starting 02/04/2023 until 03/05/2024 [facility] Work Phone: Comment on above: 1 Occurrences starting 02/04/2023 until 03/05/2024 ECG 12 Lead ECG 12 Lead ECG Routine Irregular heart rate 06/09/2023 8:28 AM EST [facility] Work Phone: End: 03-09-2023 HOME SLEEP APNEA TEST (HSAT) HOME SLEEP APNEA TEST (HSAT) Procedures Routine Somnolence, daytime Snoring 1 Occurrences starting 03/09/2022 until 03/09/2023 [facility] Work Phone: Comment on above: 1 Occurrences starting 03/09/2022 until 03/09/2023 Oxygen therapy [[facility] Data Set] Initiate Oxygen Therapy Protocol Respiratory Care Routine Daily until discontinued starting 10/07/2020 [facility] Work Phone: Comment on above: Daily until discontinued starting 2020 End: 03-04-2023 Polysomnogram POLYSOMNOGRAM (PSG) Procedures Routine Somnolence, daytime Snoring 1 Occurrences starting 03/04/2022 until 03/04/2023 [facility] Work Phone: Comment on above: 1 Occurrences starting 03/04/2022 until 03/04/2023 [facility] Immun[facility] Immun[facility] Date Immunization Notes Care Provider Fa ras 02-23-2023 COVID-19 vaccine, ag e 12+ yr, 2022- season (PFIZER-BIONTECH) Lynne Ni MD Work Phone: [facility] Payers Date Payer Category Payer Self-pay 2017 Unknown [employer] [id number] 2017-Present [address] [place] [address] [id number] 2009 Medicaid [employer] [id number] 2009-Present [phone] [address] [place] [address] Medicaid [id number] 2009 Medicaid [id number]. [id number] 1980 Unknown [id number] 2.16.840.1.142757.3.579.2.185 1980 Unknown [id number] 2.16.840.1.270393.3.579.2.175 1980 Unknown [id number] 2.16.840.1.917521.3.579.2.593 1980 Unknown [id number] 2.16.840.1.116689.3.579.2.593 1980 Unknown [id number] 2.16.840.1.447475.3.579.2.593 1980 Unknown [id number] 2.16.840.1.459629.3.579.2.593 1980 Unknown [id number] 2.16.840.1.868017.3.579.2. 1980 Unknown [id number] 2.16.840.1.126713.3.579.2.59 1980 Unknown [id number] 2.16.840.1.516660.3.579.2. 1980 Unknown [id number] 2.16.840.1.470569.3.579.2. 1980 Unknown [id number] 2.16.840.1.795052.3.579.2. 1980 Unknown [id number] 2.16.840.1.748012.3.579.2. 1980 Unknown [id number] 2.16.840.1.233785.3.579.2.1243 1980 Unknown [id number] 2.16.840.1.561021.3.579.2.1243 1980 Unknown [id number] 2.16.840.1.680027.3.579.2.1258 1980 Unknown [id number] 2.16.840.1.390545.3.579.2.1258 1980 Unknown [id number] 2.16.840.1.840510.3.579.2.1258 1980 Unknown [id number] 2.16.840.1.892514.3.579.2.1258 1980 Unknown [id number] 2.16.840.1.792118.3.579.2.1258 1980 Unknown [id number] 2.16.840.1.819416.3.579.2.1258 1980 Unknown [id number] 2.16.840.1.273861.3.579.2.1258 1980 Unknown [id number] 2.16.840.1.398919.3.579.2.1259 1980 Unknown [id number] 2.16.840.1.173880.3.579.2.1259 1980 Unknown [id number] 2.16.840.1.645348.3.579.2.1259 1980 Unknown [id number] 2.16.840.1.769001.3.579.2.1259 1959 Unknown [id number] 1959 Unknown [id number] Unknown [id number] 2.16.840.1.548188.3.579.2.531 Social History Date Type Detail Facility Start: 10-07-2020 End: 03-09-2022 Tobacco smoking status DEIS Current every day smoker [facility] Start: 10-07-2020 End: 03-09-2022 Tobacco use and exposure Never used [employer] Start: 10-07-2020 End: 07-13-2023 Alcohol intake Lifetime non-drinker (finding) [employer] Phone: Start: 10-07-2020 History SDOH Alcohol Frequency 1 [employer] Phone: Start: 1980 Sex Assigned At Not on file [facility] [employer] Phone: Start: 02-22-2022 End: 07-13-2023 Exposure to SARS-CoV-2 (event) Not sure [employer] History of tobacco use Cigarette Smoker [facility] Start: 05-31-2014 End: 09-24-2022 Cigarettes smoked current (pack per day) - Reported 1 [facility] Start: 10-24-2021 End: 10-05-2023 Alcohol intake Current non-drinker of alcohol (finding) [facility] Start: 10-14-2021 End: 10-24-2021 Exposure to SARS-CoV-2 (event) Unable to assess [facility] Start: 09-24-2022 End: 10-22-2022 Sex Assigned At [facility] Adult Depression Screening Assessment 1 [facility] Start: 10-19-2022 Tobacco Comment Current smoker , everyday, 11-20 cigarettes/day [facility] Start: 05-31-2023 Alcohol Comment Caffeine intak e : > 4 cups per day [facility] Start: 08-19-2016 Tobacco smoking stat us DEIS Smoker (finding) [facility] Start: 1980 Sex Assigned At Female F [facility] Clinical Notes 05-31-2014 to 11-11-2023 Telephone Encounter - Lynne Ni MD - 11/11/2023 4:14 PM EDTTelephone Encounter - Lynne Ni MD - 11/11/2023 4:14 PM EDTTelephone Encounter - Shantel Higgins MA - 11/11/2023 3:29 PM EDT Note Date & Type Note Facility 11-11-2023 Telephone encounter Note Notify patient medication sent as requested Thank you. Patient's request for medication is as follows: Requested Prescriptions Pending Prescriptions Disp Refills azaTHIOprine (IMURAN) 50 mg tablet 270 tablet 1 Sig: TAKE 3 TABLETS BY MOUTH DAILY WITH FOOD. HOLD IF ON ANTIBIOTICS OR ILL. Prescription(s) as above. Please process accordingly. Lynne Ni MD [facility] 11-11-2023 Miscellaneous Notes Notify patient medication sent as requested Thank you. Patient's request for medication is as follows: Requested Prescriptions Pending Prescriptions Disp Refills azaTHIOprine (IMURAN) 50 mg tablet 270 tablet 1 Sig: TAKE 3 TABLETS BY MOUTH DAILY WITH FOOD. HOLD IF ON ANTIBIOTICS OR ILL. Prescription(s) as above. Please process accordingly. Lynne Ni MD Images from the original note were not included. Pharmacy electronically requests the following refill(s) requesting 90 day supply Requested Prescriptions Pending Prescriptions Disp Refills azaTHIOprine (IMURAN) 50 mg tablet 270 tablet 1 Sig: TAKE 3 TABLETS BY MOUTH DAILY WITH FOOD. HOLD IF ON ANTIBIOTICS OR ILL. Shantel Higgins MA Most recent Rheumatology visit: 10/05/2023 (with Lynne Ni) Rheumatology Care Team: None on file Recent Office Visits - This Specialty 10/05/2023 Other systemic lupus erythematosus with other organ involvement (HCC) Rheumatology Lynne Ni MD 02/04/2023 Other systemic lupus erythematosus with other organ involvement (HCC) Rheumatology Lynne Ni MD 06/15/2022 Other systemic lupus erythematosus with other organ involvement (HCC) Rheumatology Lynne Ni MD Upcoming Rheumatology Appointments - Next 365 Days No appointments to display Last Ophthalmology Check for Plaquenil (Hydroxychloroquine) Last OCT Macula Exam No resulted procedures found. Last Visual Field Exam No resulted procedures found. CBC: Latest Ref Rng & Units 06/10/2023 08/31/2023 CBC WBC 3.70 - 11.00 k/uL 15.15 13.43 Hemoglobin 11.5 - 15.5 g/dL 13.9 13.3 Hematocrit 36.0 - 46.0 % 43.1 41.5 Platelet Count 150 - 400 k/uL 320 304 Abs Neut (ANC) 1.45 - 7.50 k/uL 9.69 Abs Lymph 1.00 - 4.00 k/uL 2.58 Vitamin D: Latest Ref Rng & Units 06/10/2023 08/31/2023 Vitamin D Vitamin D 25 Hydroxy 31.0 - 80.0 ng/mL 17.3 32.2 LFT: Latest Ref Rng & Units 06/10/2023 08/31/2023 CMP Sodium 136 - 144 mmol/L 141 141 Potassium 3.7 - 5.1 mmol/L 3.6 4.2 Chloride 97 - 105 mmol/L 107 105 CO2 22 - 30 mmol/L 24 25 Glucose 74 - 99 mg/dL 98 160 BUN 7 - 21 mg/dL 17 13 Creatinine 0.58 - 0.96 mg/dL 0.80 0.80 Calcium 8.5 - 10.2 mg/dL 9.8 10.0 AST 13 - 35 U/L 9 18 ALT 7 - 38 U/L 22 31 Alkaline Phosphatase 34 - 123 U/L 72 69 Hepatic Function: Creatinine: Latest Ref Rng & Units 06/10/2023 08/31/2023 Creatinine Creatinine 0.58 - 0.96 mg/dL 0.80 0.80 ESR/CRP: Latest Ref Rng & Units 06/10/2023 08/31/2023 ESR, WSR WSR 0 - 20 mm/hr 28 37 Latest Ref Rng & Units 06/10/2023 08/31/2023 CRP CRP <0.9 mg/dL <0.3 0.6 Uric Acid: None on file in the last 6 months Open Standing (Multiple Instance) Lab Orders Remain Interval Expires Ordered Last Rel. CBC + DIFF [SQCBCDIF] 3/5 Every 3 months 06/02/24 06/03/23 08/31/23 Auth. provider: Jose Najera MD Assoc. diagnoses: Megaloblastic anemia due to vitamin B12 deficiency, Elevated sed rate COMP METABOLIC PANEL [SQCMP] 3/5 Every 3 months 06/02/24 06/03/23 08/31/23 Auth. provider: Jose Najera MD Assoc. diagnoses: Megaloblastic anemia due to vitamin B12 deficiency, Elevated sed rate IRON + TIBC [SQIRON] 3/5 Every 3 months 06/02/24 06/03/23 08/31/23 Auth. provider: Jose Najera MD Assoc. diagnoses: Megaloblastic anemia due to vitamin B12 deficiency, Elevated sed rate FERRITIN BLD [SQFERR] 3/5 Every 3 months 06/02/24 06/03/23 08/31/23 Auth. provider: Jose Najera MD Assoc. diagnoses: Megaloblastic anemia due to vitamin B12 deficiency, Elevated sed rate VITAMIN B12 BLOOD [SQB12] 3/5 Every 3 months 06/02/24 06/03/23 08/31/23 Auth. provider: Jose Najera MD Assoc. diagnoses: Megaloblastic anemia due to vitamin B12 deficiency, Elevated sed rate FOLATE SERUM [SQSERFOL] 3/5 Every 3 months 06/02/24 06/03/23 08/31/23 Auth. provider: Jose Najera MD Assoc. diagnoses: Megaloblastic anemia due to vitamin B12 deficiency, Elevated sed rate SED RATE WESTERGREN [SQWSR] 3/4 Every 3 months 06/09/24 06/10/23 08/31/23 Auth. provider: Jose Najera MD Assoc. diagnoses: Elevated sed rate Open Future (Single Instance) Lab Orders Expected Expires Ordered COMPREHENSIVE METABOLIC PANEL [SQCMP] 12/04/23 09/03/24 09/04/23 Auth. provider: Lynne Ni MD Assoc. diagnoses: Elevated LFTs COMPLETE BLOOD COUNT [SQCBC] 12/04/23 09/03/24 09/04/23 Auth. provider: Lynne Ni MD Assoc. diagnoses: Anemia of chronic disease SEDIMENTATION RATE, WESTERGREN [SQWSR] 12/04/23 09/03/24 09/04/23 Auth. provider: Lynne Ni MD Assoc. diagnoses: Elevated sed rate, Elevated C-reactive protein (CRP) C-REACTIVE PROTEIN [SQCRP] 12/04/23 09/03/24 09/04/23 Auth. provider: Lynne Ni MD Assoc. diagnoses: Elevated sed rate, Elevated C-reactive protein (CRP) VITAMIN D 25 HYDROXY [SQVITD] 12/04/23 09/03/24 09/04/23 Auth. provider: Lynne Ni MD Assoc. diagnoses: Vitamin D deficiency COMPLETE BLOOD COUNT AND DIFFERENTIAL [SQCBCDIF] 12/02/23 09/08/24 09/09/23 Auth. provider: Jose Najera MD Assoc. diagnoses: Megaloblastic anemia due to vitamin B12 deficiency, High total serum IgM COMPREHENSIVE METABOLIC PANEL [SQCMP] 12/02/23 09/08/24 09/09/23 Auth. provider: Jose Najera MD Assoc. diagnoses: Megaloblastic anemia due to vitamin B12 deficiency, High total serum IgM IRON AND TIBC [SQIRON] 12/02/23 09/08/24 09/09/23 Auth. provider: Jose Najera MD Assoc. diagnoses: Megaloblastic anemia due to vitamin B12 deficiency, High total serum IgM FERRITIN [SQFERR] 12/02/23 09/08/24 09/09/23 Auth. provider: Jose Najera MD Assoc. diagnoses: Megaloblastic anemia due to vitamin B12 deficiency, High total serum IgM VITAMIN B12 [SQB12] 12/02/23 09/08/24 09/09/23 Auth. provider: Jose Najera MD Assoc. diagnoses: Megaloblastic anemia due to vitamin B12 deficiency, High total serum IgM FOLATE, SERUM [SQSERFOL] 12/02/23 09/08/24 09/09/23 Auth. provider: Jose Najera MD Assoc. diagnoses: Megaloblastic anemia due to vitamin B12 deficiency, High total serum IgM IMMUNOGLOBULIN A [SQIGA] 12/02/23 03/02/24 09/09/23 Auth. provider: Jose Najera MD Assoc. diagnoses: Megaloblastic anemia due to vitamin B12 deficiency, High total serum IgM IMMUNOGLOBULIN E [SQIGE] 12/02/23 03/02/24 09/09/23 Auth. provider: Jose Najera MD Assoc. diagnoses: Megaloblastic anemia due to vitamin B12 deficiency, High total serum IgM IMMUNOGLOBULIN G [SQIGG] 12/02/23 03/02/24 09/09/23 Auth. provider: Jose Najera MD Assoc. diagnoses: Megaloblastic anemia due to vitamin B12 deficiency, High total serum IgM IMMUNOGLOBULIN M [SQIGM] 12/02/23 03/02/24 09/09/23 Auth. provider: Jose Najera MD Assoc. diagnoses: Megaloblastic anemia due to vitamin B12 deficiency, High total serum IgM SEDIMENTATION RATE, WESTERGREN [SQWSR] 12/02/23 03/02/24 09/09/23 Auth. provider: Jose Najera MD Assoc. diagnoses: Megaloblastic anemia due to vitamin B12 deficiency, High total serum IgM documented in this encounter [facility] 11-11-2023 Telephone encounter Note Images from the original note were not included. Pharmacy electronically requests the following refill(s) requesting 90 day supply Requested Prescriptions Pending Prescriptions Disp Refills azaTHIOprine (IMURAN) 50 mg tablet 270 tablet 1 Sig: TAKE 3 TABLETS BY MOUTH DAILY WITH FOOD. HOLD IF ON ANTIBIOTICS OR ILL. Shantel Higgins MA Most recent Rheumatology visit: 10/05/2023 (with Lynne Ni) Rheumatology Care Team: None on file Recent Office Visits - This Specialty 10/05/2023 Other systemic lupus erythematosus with other organ involvement (HCC) Rheumatology Lynne Ni MD 02/04/2023 Other systemic lupus erythematosus with other organ involvement (HCC) Rheumatology Lynne Ni MD 06/15/2022 Other systemic lupus erythematosus with other organ involvement (HCC) Rheumatology Lynne Ni MD Upcoming Rheumatology Appointments - Next 365 Days No appointments to display Last Ophthalmology Check for Plaquenil (Hydroxychloroquine) Last OCT Macula Exam No resulted procedures found. Last Visual Field Exam No resulted procedures found. CBC: Latest Ref Rng & Units 06/10/2023 08/31/2023 CBC WBC 3.70 - 11.00 k/uL 15.15 13.43 Hemoglobin 11.5 - 15.5 g/dL 13.9 13.3 Hematocrit 36.0 - 46.0 % 43.1 41.5 Platelet Count 150 - 400 k/uL 320 304 Abs Neut (ANC) 1.45 - 7.50 k/uL 9.69 Abs Lymph 1.00 - 4.00 k/uL 2.58 Vitamin D: Latest Ref Rng & Units 06/10/2023 08/31/2023 Vitamin D Vitamin D 25 Hydroxy 31.0 - 80.0 ng/mL 17.3 32.2 LFT: Latest Ref Rng & Units 06/10/2023 08/31/2023 CMP Sodium 136 - 144 mmol/L 141 141 Potassium 3.7 - 5.1 mmol/L 3.6 4.2 Chloride 97 - 105 mmol/L 107 105 CO2 22 - 30 mmol/L 24 25 Glucose 74 - 99 mg/dL 98 160 BUN 7 - 21 mg/dL 17 13 Creatinine 0.58 - 0.96 mg/dL 0.80 0.80 Calcium 8.5 - 10.2 mg/dL 9.8 10.0 AST 13 - 35 U/L 9 18 ALT 7 - 38 U/L 22 31 Alkaline Phosphatase 34 - 123 U/L 72 69 Hepatic Function: Creatinine: Latest Ref Rng & Units 06/10/2023 08/31/2023 Creatinine Creatinine 0.58 - 0.96 mg/dL 0.80 0.80 ESR/CRP: Latest Ref Rng & Units 06/10/2023 08/31/2023 ESR, WSR WSR 0 - 20 mm/hr 28 37 Latest Ref Rng & Units 06/10/2023 08/31/2023 CRP CRP <0.9 mg/dL <0.3 0.6 Uric Acid: None on file in the last 6 months Open Standing (Multiple Instance) Lab Orders Remain Interval Expires Ordered Last Rel. CBC + DIFF [SQCBCDIF] 3/5 Every 3 months 06/02/24 06/03/23 08/31/23 Auth. provider: Jose Najera MD Assoc. diagnoses: Megaloblastic anemia due to vitamin B12 deficiency, Elevated sed rate COMP METABOLIC PANEL [SQCMP] 3/5 Every 3 months 06/02/24 06/03/23 08/31/23 Auth. provider: Jose Najera MD Assoc. diagnoses: Megaloblastic anemia due to vitamin B12 deficiency, Elevated sed rate IRON + TIBC [SQIRON] 3/5 Every 3 months 06/02/24 06/03/23 08/31/23 Auth. provider: Jose Najera MD Assoc. diagnoses: Megaloblastic anemia due to vitamin B12 deficiency, Elevated sed rate FERRITIN BLD [SQFERR] 3/5 Every 3 months 06/02/24 06/03/23 08/31/23 Auth. provider: Jose Najera MD Assoc. diagnoses: Megaloblastic anemia due to vitamin B12 deficiency, Elevated sed rate VITAMIN B12 BLOOD [SQB12] 3/5 Every 3 months 06/02/24 06/03/23 08/31/23 Auth. provider: Jose Najera MD Assoc. diagnoses: Megaloblastic anemia due to vitamin B12 deficiency, Elevated sed rate FOLATE SERUM [SQSERFOL] 3/5 Every 3 months 06/02/24 06/03/23 08/31/23 Auth. provider: Jose Najera MD Assoc. diagnoses: Megaloblastic anemia due to vitamin B12 deficiency, Elevated sed rate SED RATE WESTERGREN [SQWSR] 3/4 Every 3 months 06/09/24 06/10/23 08/31/23 Auth. provider: Jose Najera MD Assoc. diagnoses: Elevated sed rate Open Future (Single Instance) Lab Orders Expected Expires Ordered COMPREHENSIVE METABOLIC PANEL [SQCMP] 12/04/23 09/03/24 09/04/23 Auth. provider: Lynne Ni MD Assoc. diagnoses: Elevated LFTs COMPLETE BLOOD COUNT [SQCBC] 12/04/23 09/03/24 09/04/23 Auth. provider: Lynne Ni MD Assoc. diagnoses: Anemia of chronic disease SEDIMENTATION RATE, WESTERGREN [SQWSR] 12/04/23 09/03/24 09/04/23 Auth. provider: Lynne Ni MD Assoc. diagnoses: Elevated sed rate, Elevated C-reactive protein (CRP) C-REACTIVE PROTEIN [SQCRP] 12/04/23 09/03/24 09/04/23 Auth. provider: Lynne Ni MD Assoc. diagnoses: Elevated sed rate, Elevated C-reactive protein (CRP) VITAMIN D 25 HYDROXY [SQVITD] 12/04/23 09/03/24 09/04/23 Auth. provider: Lynne Ni MD Assoc. diagnoses: Vitamin D deficiency COMPLETE BLOOD COUNT AND DIFFERENTIAL [SQCBCDIF] 12/02/23 09/08/24 09/09/23 Auth. provider: Jose Najera MD Assoc. diagnoses: Megaloblastic anemia due to vitamin B12 deficiency, High total serum IgM COMPREHENSIVE METABOLIC PANEL [SQCMP] 12/02/23 09/08/24 09/09/23 Auth. provider: Jose Najera MD Assoc. diagnoses: Megaloblastic anemia due to vitamin B12 deficiency, High total serum IgM IRON AND TIBC [SQIRON] 12/02/23 09/08/24 09/09/23 Auth. provider: Jose Najera MD Assoc. diagnoses: Megaloblastic anemia due to vitamin B12 deficiency, High total serum IgM FERRITIN [SQFERR] 12/02/23 09/08/24 09/09/23 Auth. provider: Jose Najera MD Assoc. diagnoses: Megaloblastic anemia due to vitamin B12 deficiency, High total serum IgM VITAMIN B12 [SQB12] 12/02/23 09/08/24 09/09/23 Auth. provider: Jose Najera MD Assoc. diagnoses: Megaloblastic anemia due to vitamin B12 deficiency, High total serum IgM FOLATE, SERUM [SQSERFOL] 12/02/23 09/08/24 09/09/23 Auth. provider: Jose Najera MD Assoc. diagnoses: Megaloblastic anemia due to vitamin B12 deficiency, High total serum IgM IMMUNOGLOBULIN A [SQIGA] 12/02/23 03/02/24 09/09/23 Auth. provider: Jose Najera MD Assoc. diagnoses: Megaloblastic anemia due to vitamin B12 deficiency, High total serum IgM IMMUNOGLOBULIN E [SQIGE] 12/02/23 03/02/24 09/09/23 Auth. provider: Jose Najera MD Assoc. diagnoses: Megaloblastic anemia due to vitamin B12 deficiency, High total serum IgM IMMUNOGLOBULIN G [SQIGG] 12/02/23 03/02/24 09/09/23 Auth. provider: Jose Najera MD Assoc. diagnoses: Megaloblastic anemia due to vitamin B12 deficiency, High total serum IgM IMMUNOGLOBULIN M [SQIGM] 12/02/23 03/02/24 09/09/23 Auth. provider: Jose Najera MD Assoc. diagnoses: Megaloblastic anemia due to vitamin B12 deficiency, High total serum IgM SEDIMENTATION RATE, WESTERGREN [SQWSR] 12/02/23 03/02/24 09/09/23 Auth. provider: Jose Najera MD Assoc. diagnoses: Megaloblastic anemia due to vitamin B12 deficiency, High total serum IgM [facility] 10-28-2023 Telephone encounter Note Pt read [employer] message. [facility] 10-28-2023 Miscellaneous Notes Pt read [employer] message. Please call patient. Thank you for the update. Sorry to hear about your discomfort. Please hold benlysta and 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/imuran while ill. No issues with rheumatology medications and probiotics or kefir. Would definitely check with GI and infection disease regarding C.diff care and recommendations and your questions about probiotics & kefir. Agree with seeing them due to your current symptoms. Hope you feel better soon! Dr.Tsai Harshal :) documented in this encounter [facility] 10-28-2023 Telephone encounter Note Please call patient. Thank you for the update. Sorry to hear about your discomfort. Please hold benlysta and 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/imuran while ill. No issues with rheumatology medications and probiotics or kefir. Would definitely check with GI and infection disease regarding C.diff care and recommendations and your questions about probiotics & kefir. Agree with seeing them due to your current symptoms. Hope you feel better soon! Dr.Tsai Harshal :) [facility] 10-27-2023 Nurse Note Patient Identification confirmed: yes. Injection given and documented on MAR per provider order. Margret Cuenca MA [facility] 10-27-2023 Nurse Note Patient Identification confirmed: yes. Injection given and documented on MAR per provider order. Margret Cuenca MA documented in this encounter [facility] 10-12-2023 Note [facility] 10-05-2023 History of Presen t illness Narrative THIS [...] visit. Either the patient or their legal member services representative has been informed of the risks and benefits of -- and alternatives to -- treatment through a remote evaluation and consents to proceed with the evaluation remotely. It required patient-provider interaction for the medical decision making as documented below. Persons Present: self (in home) Provider: (in office) VIRTUAL VISIT Follow up for:osteoarthritis/low vitamin D/b12/ +CHRISTIAN/high esr/+tumid lupus biopsy Today's visit 10/05/23:off benlysta for several weeks due to two boils/HS, C.diff, now back on benlysta for last 11weeks, back on 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 3tabs daily, decreased to prednisone 10mg day/patient wants to taper off but has more pain when dose is lowered further, lyrica, plaquenil 1tab daily,topamax, vitamin D script. Due for this year eye exam. Recently tested +C.diff with recent increased diarrhea, last C.diff test negative 07/2023. Will see GI and Infectious disease soon. Thinks prilosec made her have diarrhea. 08/31/23 high wbc 13.43, glucose 160, esr 37;normal rest of cbc, cmp, iron 87, vitamin D 32.2, crp 0.6; 07/15/23 saw derm [facility]-Patient reported she was seen in urgent care x 2 since March, with MRSA and patient was treated with [...] 02/26/23 no ocular complication related to medication. Raynauds better with warmer weather. No digital ulcers. 50% improvement from benlysta. limited exercise due to pain. fingers swelling. Chronic current pain in entire body, low back, legs, hands, fingers, feet. Last week had 3good days/thinking benlysta working. Reports pain 5/10. Has minimal AM stiffness. Feels safe at home. Has enough food, supplies and medications. Overall mildly uncomfortable but happy with rheum care. No falls/fx/trauma/illness/oral sores/rash/hairloss/jaw pain/dysphagia/epistaxis/hemopty sis since last visit. No adverse effects with meds. No other complaints. Patient denies fever, chills, cp, dyspnea, nausea, vomiting, night sweats, scalp tenderness, visual changes, hernandez, bowel/bladder changes, weight changes or other complaints. Last visit supportive care, tolerating 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/increase to 3tabs daily, start benlysta if approved, start raynauds general measures, may consider osteoporosis treatment if on group home steroids/abnormal bmd, take vitamin D script if [...] neurology/on metoprolol for POTs, avoid aggravating triggers, group home pain recommendations per primary care provider/pain clinic/patient currently declined cymbalta/lyrica, see ortho, prn brace, start fall precautions, 02/04/23:due for labs 04/2023.reports heartburn, hairloss, numbness, [...] happy with rheum care. No falls/fx/trauma/illness/oral sores//jaw pain/dysphagia/epistaxis/hemopty sis since last visit. No adverse effects with [...] neurology/on metoprolol for POTs, avoid aggravating triggers, group home pain recommendations per primary care provider/pain clinic/patient [...] happy with rheum care. No falls/fx/trauma/illness/oral sores/rash/hairloss/jaw pain/dysphagia/epistaxis/hemopty sis since last visit. No adverse effects with [...] Due for eye exam. Labs sent to [place]/completed in 06/2021 (no results faxed to office, but patient pulled up results on her phone). Chronic current pain in neck, flank area, mid back, knees, legs, arms, all over pain. Better with lyrica 75mg 3times a day. Reports pain 4-12/31. Couple hrs AM stiffness. COVID vaccine [employer] 09/28/20, 10/19/20, 05/26/21. Feels safe at home. Has enough food, supplies and medications. Overall uncomfortable but happy with rheum care. No falls/fx/trauma/illness/oral sores/rash/hairloss/jaw pain/dysphagia/epistaxis/hemopty sis since last visit. No adverse effects with [...] dexamethasone Reports pain -11/30 No falls/fx/trauma/illness/oral sores/rash/hairloss/jaw pain/dysphagia/epistaxis/hemopty sis. No adverse effects with meds. No other complaints. Patient denies fever, chills, cp, dyspnea, nausea, vomiting, night sweats, scalp tenderness, visual changes, hernandez, bowel/bladder changes, weight changes or other complaints. COMPLETE REVIEW OF SYSTEMS: RHEUM. ROS: Joint pain: yes axilla, low back, legs, feet, flank pain Joint swelling: no Am stiffness: yes all day Low back pain: yes H/o precedent/frequent infection(s): as above Enthesopathy/Gillian's/heel/plan tar tenderness: hands random painful/tingling Skin thickening, psoriasis, photosensitivity, purpura: as above Alpecia, patchy: yes Eye inflammation: glasses GI problems-diarrhea/bleeding/IBD/G luten intolerence/Dysphagia: as above Fatigue: yes, sleeps 10 [...] COVID-19 original vaccine, age 12+ yr, monovalent ([employer] - PURPLE TOP) 09/28/2020 10/19/2020 05/26/2021 COVID-19 vaccine, age 12+ yr, 2022- season (PFIZER-BIONTGINKGOTREE) 02/23/2023 COVID-19 vaccine, age 12+ yr, bivalent ([employer]) 02/08/2022 Pneumovax no Flu shot no Tetanus [...] script CURRENT ALLERGIES: Allergies As of Date: 10/05/2023 Allergen Noted Reaction BACTRIM [SULFAMETHOXAZOLE] 05/31/2014 Other: See Comments CODEINE 05/31/2014 Other: See Comments CLINDAMYCIN 03/04/2022 Unknown DOXYCYCLINE 01/19/2022 Other: See Comments LATEX 05/31/2014 Rash SULFAMETHOXAZOLE-TRIMETHOPRIM 03/04/2022 Swelling TRIMETHOPRIM 01/19/2022 Other: See Comments Fully Assessed 06/10/2023 TESTS:All Diagnostic tests reviewed for today's visit: 08/31/23 high wbc 13.43, glucose 160, esr 37;normal rest of cbc, cmp, iron 87, vitamin D 32.2, crp 0.6; 07/15/23 saw derm -Patient reported she was seen in urgent care x 2 since March, with MRSA and patient was treated with [...] 02/26/23 no ocular complication related to medication. 01/22/23 high wbc 13.8;low vitamin D 25.1, [...] (33);NL cbc, cmp, negative hla b27; Outside [place] 06/2021 low vitamin D 16, vitamin b12-307;high [...] NECK: no visible thyromegaly or LAD. EXTREMITIES:No clubbing,discoloration,sclerodac tyly, periungual erythema, digital ulcers, nail pitting, edema, [...] LIMITATION of Motion of Joints: yes IMPRESSION/DIAGNOSIS:02/04/23 No diagnosis found. Ms. Haley is a 42 year old [...] palpitations Does better with dexamethasone Reports pain 2-/10 Outside 11/2020 high esr 48, +CHRISTIAN 1:80/speckled;low [...] a few months) 10/22/22 normal TPMT activity. 07/2022 recent oral steroids. Has GERD/ no crohns. limited exercise due to POTs. COVID vaccine 09/28/20, 10/19/20, 05/26/21, 02/08/22. Skin changes better with prednisone.off benlysta for several weeks due to two boils/HS, C.diff, now back on benlysta for last 11weeks, back on 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 3tabs daily, decreased to prednisone 10mg day/patient wants to taper off but has more pain when dose is lowered further, lyrica, plaquenil 1tab daily,topamax, vitamin D script. Due for this year eye exam. Recently tested +C.diff with recent increased diarrhea, last C.diff test negative 07/2023. Will see GI and Infectious disease soon. Thinks prilosec made her have diarrhea. 08/31/23 high wbc 13.43, glucose 160, esr 37;normal rest of cbc, cmp, iron 87, vitamin D 32.2, crp 0.6; 07/15/23 saw derm -Patient reported she was seen in urgent care [...] 02/26/23 no ocular complication related to medication. Raynauds better with warmer weather. No digital ulcers. 50% improvement from benlysta. limited exercise due to pain. fingers swelling. Chronic current pain in entire body, low back, legs, hands, fingers, feet. Last week had 3good days/thinking benlysta working. Reports pain 5/10. Has minimal AM stiffness. Feels safe at home. Has enough food, supplies and medications. Overall mildly uncomfortable but happy with rheum care. 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, see primary care provider for recurrent flank pain/if UTIs recut, improved with plaquenil 2tabs daily, start photoprotection, see ophthalmology, steroids/prednisone 10mg daily/ per primary care provider/try weaning off, see derm/?eval recurrent boils/HS, see spine/pain clinic/improved with lyrica/may increase if needed, see derm, start prn heat/ice/otc arthritis creams, low impact weightbearing exercise as tolerated, see neurology/on metoprolol for POTs, avoid aggravating triggers, terminal operator pain recommendations per primary care provider/pain clinic/patient currently declined cymbalta/lyrica, see ortho, prn brace, start fall precautions, answered all questions and concerns, patient voiced understanding. RECOMMENDATION/PLAN: Reviewed labs/tests with patient Provided printed info 02/04/23 precert for benlysta 10/05/23 check nonfasting labs every 3months 10/05/23 SLAQ 15;02/04/23 SLAQ 24;Modified 10/05/23 KRISTEN 0, pain 50%;02/04/23 KRISTEN 0, pain 60%;06/15/22 KRISTEN 0, pain60%;10/24/21 [...] (200mg) daily with a meal Please see associate property manager every 6-12months while on Hydroxychloroquine. Start 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 [...] touching your toes, sit-ups, using row machine group home pain recommendations per primary care provider/pain clinic [...] I spent a total of 30 minutes 7:45-8:15AM on the date of the service in addition to 10-15min preparing to see the patient, video & audio (virtual) or phone or [id number] patient care, completing clinical documentation, obtaining and/or [...] cc Gay Enciso CNP;Dr.Douglas Sai Ferris MD Answers submitted by the patient for this visit: Review of Systems Rheumatology (Submitted on 2023) Fever : No Recent unintentional weight change: No Eye pain: No Eye redness: No Vision Disturbance: No Eye Dryness: No Nosebleeds: No Sores in your mouth: No Trouble Swallowing: No Dry Mouth: Yes Chest pain: Yes Leg Swelling: Yes A cough: No Shortness of breath: No Pain with breathing: No Heartburn: Yes Abdominal pain: Yes Diarrhea: Yes Black tarry stools: No Blood in urine: No Pain or burning with urination: No Joint pain or stiffness: Yes Muscle weakness: Yes Muscle aches: Yes Joint swelling: Yes Morning Stiffness in Joints: Yes A rash: Yes Do you have sun sensitive rashes?: Yes Skin Color Changes: No Hair Loss: Yes Nail Changes: No Headaches: No Numbness: Yes Memory Loss: No Swollen Glands: Yes MYCHART AMBULATORY VISIT INTAKE QUESTIONNAIRE Question 2023 11:04 PM EDT - Filed by Patient 09/08/2023 10:28 PM EDT - Filed by Patient 06/10/2023 8:07 AM EDT - Filed by Patient Has the Patient Had 2 Falls in the Last Year or 1 Fall with Injury or Currently Using an Ambulatory Assistive Device (Walker, Cane, Wheelchair, Crutches, etc.) No No No Are you having pain associated with your visit today? Yes No No What is your Pain Level? 4 Pain Location Description Aching Pressure Stiffness Tightness Duration Amount of Time Duration Units Hours Frequency Intermittent Intervention/Comfort measure Medication Reposition Relaxation Cold Heat Massage Pillow support Positioning Comments [facility] MYCHART ADDITIONAL DEMO Question 2023 11:04 PM EDT - Filed by Patient Is this visit related to an accident, other than Workers' Compensation? No Is this visit related to Workers' Compensation? No Do you need an translator and interpreter? No [facility] MYCHART ZOOM MESSAGE Question 2023 11:04 PM EDT - Filed by Patient Install Zoom I have Zoom installed [facility] PROMIS CAT V2.0-PHYSICAL FUNCTION-28 DAYS Question 2023 11:04 PM EDT - Filed by Patient 05/24/2023 8:32 PM EDT - Filed by Patient 04/26/2023 3:44 PM EDT - Filed by Patient PROMIS Physical Function T-Score (range: 10 - 90) 29 (severe dysfunction) Abnormal 29 (severe dysfunction) Abnormal 31 (moderate dysfunction) Abnormal PROMIS Physical Function Percentile (range: 0 - 100) 2 2 3 [facility] PROMIS CAT V1.0 - FATIGUE-28 DAYS Question 2023 11:05 PM EDT - Filed by Patient 05/24/2023 8:33 PM EDT - Filed by Patient 04/26/2023 3:45 PM EDT - Filed by Patient PROMIS Fatigue T-Score (range: 10 - 90) 59 (mild) Abnormal 62 (moderate) Abnormal 72 (severe) Abnormal PROMIS Fatigue Percentile (range: 0 - 100) 18 12 1 [facility] PROMIS CAT V1.1-PAIN INTERFERENCE-28 DAYS Question 2023 11:06 PM EDT - Filed by Patient 05/24/2023 8:35 PM EDT - Filed by Patient 04/26/2023 3:47 PM EDT - Filed by Patient PROMIS Pain Interference T-Score (range: 10 - 90) (range: 10 - 90) 66 (moderate) Abnormal 70 (moderate) Abnormal 68 (moderate) Abnormal PROMIS Pain Interference Percentile (range: 0 - 100) 5 2 4 [facility] SLAQ QUESTIONNAIRE Question 2023 11:10 PM EDT - Filed by Patient IN THE PAST 3 MONTHS, have you had a lupus flare? (A lupus flare is when your lupus gets worse). Which of the following responses best describes you? Yes, moderate flare Please review the following list of lupus symptoms. IN THE PAST 3 MONTHS, how bad has each of the symptoms been? Lost weight without trying No problem Fatigue Mild Fevers (greater than 101 F, 38.5 C) taken by a thermometer No problem Sores in mouth or nose No problem Rash on cheeks (shaped like a butterfly) Mild Other rash No problem Dark blue or purple spots you could feel on your skin No problem Rash or feeling sick after going out in the sun No problem Bald patches on scalp, or clumps of hair on pillow Moderate Swollen glands (nodes) in the neck Mild Shortness of breath No problem Chest pain with a deep breath No problem Fingers or toes turning white or very pale in the cold (Raynaud's) Moderate Stomach or belly pain Severe Persistent numbness or tingling in your arms or legs Mild Seizures No problem Stroke No problem Forgetfulness No problem Feeling depressed No problem Unusual headaches No problem Muscle pain Moderate Muscle weakness Moderate Pain or stiffness in joints Severe Swelling in joints Moderate Please rate the disease activity of your lupus DURING THE PAST 3 MONTHS on the scale below, where 0 is no activity and 10 is the most activity. (Select your most active day). 6 SLAQ Score (range: 0 - 47) 15 [facility] PROVIDER UNDERSTANDING CURRENT HEALTH RHEUMATOLOGY Question 2023 11:10 PM EDT - Filed by Patient These questions will help my provider understand my health Strongly Agree [facility] DOCUMENT/IMAGE UPLOAD Question 2023 11:10 PM EDT - Filed by Patient Photo [...] of Right Forearm or Lower Left Leg. [facility] PROMIS 10 ADULT SHORT FORM V1.0 GLOBAL HEALTH Question 09/08/2023 10:32 PM EDT - Filed by Patient 06/10/2023 8:09 AM EDT - Filed by Patient 04/14/2023 7:56 PM EDT - Filed by Patient In the past 7 days In general, would you say your health is: Poor Abnormal Poor Abnormal Poor Abnormal In general, would you say your quality of life is: Poor Abnormal Poor Abnormal Poor Abnormal In general, how would you rate your physical health? Poor Abnormal Poor Abnormal Poor Abnormal In general, how would you rate your mental health, including your mood and your ability to think? Good Abnormal Good Abnormal Good Abnormal In general, how would you rate your satisfaction with your social activities and relationships? Fair Abnormal Good Fair Abnormal In general, please rate how well you carry out your usual social activities and roles. (This includes activities at home, at work and in your community, and responsibilities as a parent, child, spouse, employee, friend, etc.) Fair Abnormal Fair Abnormal Fair Abnormal To what extent are you able to carry out your everyday physical activities such as walking, climbing stairs, carrying groceries, or moving a chair? A little Abnormal A little Abnormal A little Abnormal In the past 7 days In the past 7 days, how often have you been bothered by emotional problems such as feeling anxious, depressed or irritable? Sometimes Abnormal Sometimes Abnormal Rarely In the past 7 days, how would you rate your fatigue on average? Moderate Moderate Severe Abnormal In the past 7 days, how would you rate your pain on average? 7 Abnormal 7 Abnormal 7 Abnormal PROMIS Adult Short Form-Global Health Score (Physical) (range: 16 - 68) 29.6 (Poor) Abnormal 29.6 (Poor) Abnormal 26.7 (Poor) Abnormal PROMIS Adult Short Form-Global Health Score (Mental) (range: 21 - 68) 36.3 (Fair) Abnormal 38.8 (Fair) Abnormal 38.8 (Fair) Abnormal [facility] Physical Score Compared To Last (range: -2 - 3) 3 (WITHIN +/- 5) 3 (WITHIN +/- 5) 3 (WITHIN +/- 5) [facility] Promis Gh Mental Score Compared To Last (range: -2 - 3) 3 (WITHIN +/- 5) 3 (WITHIN +/- 5) 3 (WITHIN +/- 5) documented in this encounter [facility] 10-05-2023 Note [facility] 09-30-2023 Nurse Note Patient Identification confirmed: yes. Injection given and documented on JUL per provider order. Renea Schneider MA [facility] 09-22-2023 Evaluation note Authored September 22, 2023 2:55pm 42-year-old female referred to the gastroenterology clinic for evaluation of abdominal pressure and possible IBS Patient received 2 courses of antibiotics including doxycycline and clindamycin over the last few months which was followed by C. difficile infection which was treated with fidaxomicin then diarrhea resolved. 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 Will prescribe Bentyl 10 mg twice daily as needed. -Patient states that she gets the diarrhea after she takes omeprazole. Will switch omeprazole to pantoprazole and monitor symptoms [facility] Work Phone: [phone]) 646-630204-22-2024 [facility] Instructions* Patient Instructions* Jose Najera MD - 09/09/2023 4:47 PM EDT Follow up in 13 Weeks - labs 1 week before. B12 shot every 4 weeks. Continue Folic acid. documented in [facility] History of Present illness Narrative* Jose Najera MD - 09/09/2023 4:30 PM EDT NAME: Jones Haley [facility] NO.: [id number] DATE OF SERVICE: September 09, 2023 ([place]) Some elements in this clinic note that are critical to medical decision making have been carefully reviewed and included from a prior clinic note dated: June 10, 2023 ([place]) Referring Provider: Dr. Madelaine Ferris Additional Clinicians involved in Jones Haley's care: VIRTUAL VISIT PROGRESS NOTE This is a virtual visit using [employer] Test Technician Video Call. It required patient- provider interaction for the medical decision making as documented below. I have communicated my name and active licensure. The patient's identity and physical location wereverified at the time of this visit. Either the patient or their legal member services representative has been informed of the risks and benefits of -- and alternatives to -- treatment through a remote evaluation andconsents to proceed with the evaluation remotely. DIAGNOSIS: [...] and pain, has had back pain for years,which may be contributing. She has been using [...] possibly. She experiences heart palpitations. She has hairfalling out. She occasionally has fevers and she [...] ffolic acid and states that she just resumedthe folic acid. She has been having heavy [...] lip done 2 days ago at [facility] - awaiting results. B12 helps especially [...] She has missed a few B12 injections. Shefollows with multiple doctors including and echometer engineer, counter hop, hematology nurse and PCP. She has been told they are thinking her problems are related to lupus and/or fibromyalgia. She is on medication for POTS. She states that she has been sick since 2019. She states that its constantly something . She has had intermittent chest pain episodes. She states she feels like she has fevers butdoes not actually have a fever. She has a strange sensation to her scalp. She has lost some hair. She states that her body is stiff and everything hurts. She states that something is wrong and just ex hausted with nobody finding exactly what is wrong [...] documentation, obtaining and/or reviewing separately obtained history, counselingand educating the patient/family/caregiver, ordering medications, tests, or procedures, independently interpreting results (not separately reported), and communicating results to the patient/family/caregiver. Jose Najera MD, CPE Hematology and Oncology Services Provided at: [place], [place] CC: Madelaine Ferris MD [facility] [id number] documented in [facility] Miscellaneous Notes* Telephone Encounter - Maynor Bryson MA - 09/06/2023 7:21 AM EDT patient has viewed the [employer] message per [employer]. * Telephone Encounter - Lynne Ni MD - 09/04/2023 6:30 PM EDT Please Call patient if Partender note not read to review results/released to My Chart if tests completed at [facility]: Improved/Borderline wbc and one inflammatory test- will monitor with primary care provider. Rest of labs improved/stable. Stay on vitamin D script once a week with food. If still taking prednisone, alternate FULL and HALF tab every other day x 2- 4weeks, then HALF tab daily x 2-4weeks, then HALF tab every other day x 2- 4weeks, then stop if tolerated. New vitamin D [...] second treatment was clindamycin and keflex, patient reportsshe developed c-diff after. Forehead lupus timidus improved [...] accordingly. Lynne Ni MD [facility] Note* Margret Cuenca MA - 08/31/2023 10:35 AM EDT Patient Identification confirmed: yes. Injection given and documented on JUL per provider order. Margret Cuenca MA documented [facility] Note* Renea Schneider MA - 09/30/2023 10:53 AM EDT Patient Identification confirmed: yes. Injection given and documented on JUL per provider order. Renea Schneider MA documented [facility]03[facility]14-[facility]24 Nurse Note* aMrgret Cuenca - 08/05/2023 11:16 AM EDT Patient Identification confirmed: yes. Injection given and documented on JUL per provider order. Margret Cuenca documented in [facility]02-20-[facility] Nurse Note* Margret Cuenca - 07/13/2023 12:01 PM EST Patient Identification confirmed: yes. Injection given and documented on JUL per provider order. Margret Cuenca documented in [facility]The [facility] History of Present illness Narrative* Lois Holm MD - 07/13/2023 9:30 AM EST Cardiology Consultation- New Consult Reason for referral: Palpitations HPI: Jones Haley is a 42 y.o. female who is being seen in the office for the first time to assess symptoms of chest tightness and palpitation. She was diagnosed with systemic lupus several years ago and is being cared for at the [facility] utilizing steroids, Plaquenil and injectable medic ation(Benlystal). The patient record indicating having had cardiac catheterization in [place] 3 years ago which was normal. I have the report available for my review. [facility] monitor which was remarkable for a short runof SVT for 7 beats heart rate 186 bpm. There was occasional PACs and PVCs but no complex arrhythmias. She has no history of syncope or presyncope. Patient has been gaining weight while she is on medical therapy for lupus which led to feelings of tightness across her upper abdomen specially when shebends forward. She also noticed mild lower extremity [...] She had normal cardiac catheterization, normal echocardiogram inthe last 3 years. Lifestyle changes to lose weight were recommended 2-history of tachycardia partly related to SVT which was brief based on recent monitor and would require no specific therapy beyond the beta-judie she is presently on and avoiding caffeine tobacco and stress. 3-tobacco abuse, was counseled for the need on tobacco cessation 4-systemic lupus being treated by rheumatology at the [facility] on steroids, Plaquenil and monoclonal antibody 5-sleep [...] fever (temp greater than 38.0 C)., Disp: ,Rfl: aspirin 81 mg chewable tablet, Chew 1 [...] , Rfl: ergocalciferol (Vitamin D-2) 1.25 MG (47998 UT) capsule, Take 1 capsule (50,000 Units) [...] mg) by mouth 2 times a day., Disp:, Rfl: ibuprofen 200 mg tablet, Take 3 [...] Attestation By signing my name below, I jbrleticlwayne , Scribe attest that this documentation has been prepared under the direction and in the presence of Lois Holm MD. Provider Attestation - Scribe documentation All medical record entries made by the Scribe were at my direction and personally dictated by me. Ihave reviewed the chart and agree that the record accurately reflects my personal performance of the history, physical exam, discussion and plan. documented in this [facility] Work Phone: 1(497) 775-892002-20-2024 Instructions* Patient Instructions* Lila Tejeda LPN - 07/13/2023 9:30 AM [...] time of your visit. documented in this [facility] Work Phone: 1(765) 671-926002-13-2024 History of Present illness Narrative* Juan Luis Richardson MD - 07/06/2023 2:30 PM EST Subjective Jones Haley is a 42 y.o. [...] heart is racing even when she is notexerting herself. She has been put on beta judie. She does wear a back brace. When she moves a certain way her blood pressure and heart rate will fluctuate. Admits to low back pain and heavy pressure in abdominal area. Feels like someone is sitting on her.No other concerns. Wt 263 lb BMI 41.81 [...] the skin 1 (one) time per week, Disp:, Rfl: cephalexin (Keflex) 500 MG capsule, Take [...] , Rfl: ergocalciferol (Vitamin D2) 1.25 MG (46427 UT) capsule, Take 50,000 Units by mouth 1 (one) time perweek, Disp: , Rfl: fludrocortisone (Florinef) 0.1 MG tablet, Take 1 tablet (0.1 mg) by mouth at bedtime, Disp: 30 tablet, Rfl: 11 fluocinonide (Lidex) 0.05 % external solution, apply to affected area on scalp topically qd-bid prnfor 30 day(s), Disp: 120 mL, Rfl: 11 [...] mouth in the morning and 100 mg beforebedtime., Disp: , Rfl: montelukast (Singulair) 10 MG [...] Chronic laryngopharyngitis COVID-19 vaccine administered x 2 ([employer]) History of removal of cyst 2013 tailbone [...] Oriented to person, place and time. Recent andremote memory are intact. Speech is normal. Language [...] reflexes: Stu's absent. Ankle clonus absent. Coordination Vpqtzf-uj-klxw, rapid alternating movements and hjow-ng-cyed normal bilaterally without dysmetria. Gait Normal casual, toe, heel and tandem gait. Romberg is absent. Assessment/Plan Diagnoses and all orders for this visit: Autoimmune disease ([facility]) - Protein electrophoresis, serum; Future - Protein [...] Lyrica 100 mg TID. She is on jbaytytcwx18 mg once daily. Increase prednisone 10 mg BID for 10 days. documented in this encounterNevada Regional Medical [id number] [facility]01[facility]18[facility]24 [facility]01-17-2024 History of Present illness Narrative* Michelle Britton APRN-RICE FARMER - 06/09/2023 8:30 AM EST Jones Haley is a 42 y.o. female that presents to the office today for new patient evaluation asself referral for palpitations and elevated heart rates. She has a PMH of HTN, HLD, tachycardia, anemia, JOSE RAFAEL with CPAP compliance, lupus, autonomic dysfunction, arthritis, chronic back pain. She has undergone cardiac workup in the past in [place] as noted below. She also states that she follows withNeurology for possible POTS syndrome. Admits to daily tobacco use, 1 pack of cigarettes per day. Denies vaping, ETOH, recreational drugs. Admits to drinking approximately 1 pot of coffee per day. Denies daily exercise. 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 Family history negative for heart disease other than maternal grandmother CABG. She states that her palpitations/tachycardia started approximately 2019 for which she was started on Metoprolol tartrate. She states that her palpitations and elevated heart rate have continued to increase in frequency since then with increased doses of metoprolol tartrate to current dose of 100 mgtwice day. She states that she notices her palpitations/tachycardia do not occur when she is layingdown but when she is sitting up or [...] shortness of breath and occasional left sided chestdiscomfort that sometimes radiates to her left arm [...] assessment with Dr. Patel who recommends obtaining holtermonitor and Echocardiogram. It is also felt that [...] was on this medication in 2019 but hasnot taken it since. She is also in [...] , Rfl: ergocalciferol (Vitamin D-2) 1.25 MG (38223 UT) capsule, Take 1 capsule (50,000 Units) [...] fever (temp greater than 38.0 C)., Disp: ,Rfl: aspirin 81 mg chewable tablet, Chew 1 tablet (81 mg) once daily., Disp: , Rfl: hydroxychloroquine (Plaquenil) 200 mg tablet, Take 1 tablet (200 mg) by mouth 2 times a day., Disp:, Rfl: ibuprofen 200 mg tablet, Take 3 [...] Anemia, unspecified Anxiety Autonomic dysfunction Depression, recurrent ([facility]) Discoid lupus erythematosus Chronic bilateral low back pain with bilateral sciatica Hyperlipidemia Obesity, Class III, BMI 40-49.9 (morbid obesity) ([facility]) Obstructive sleep apnea syndrome Arthritis Tachycardia Vitamin [...] or translation related to dictation, voice recognition softwarewas used to prepare this document. documented in this [facility] Work Phone: 1(583) 552-997001-09-2024 NoteMet[facility]01-03-2024 Instructions* Patient Instructions* Christie Phan MD - 05/26/2023 5:43 PM EST Images from the original note were not included. https://[employer]/tofu-bolognese/ https://nutritionstudies.org/isr-lf-fzflvlyxb-avzoabtn-aq-poqlc-q-gqxjm-adcm-randee rb-jzbqq-zkhvnymsw/ https://www.[employer]blog/plantbasedkids https://Dibbz/ylzkz-pavfb-cyxa-for-kids/ https://TMS/whg-zg-lfgyeecgur-nhko-ikjo-hv-u-sscvv-bkbpw-diet/ WHAT TO EAT? Breakfast: Overnight Oats Base ingredients: 1/3 cup rolled oats, 1/3 cup plain almond milk, 1tsp kyle seeds. Optional add-ins: cinnamon, flax seeds, honey or maple syrup, nut butter, chopped nuts. Toppings: Any fresh fruit chopped. Mix together and place in refrigerator. Can make 5 at a time for the whole week. Homemade fresh oatmeal. Can also make in the crockpot. Bermudian muffin/almond butter topped with fresh berries Bermudian muffin, cooked egg/egg white, tomato, thin slice nigerien cheese Fresh berries, hard boiled egg, whole wheat toast Plain yogurt topped with berries, unsalted nuts, drizzle of honey Whole grain toast/Bermudian muffin topped with mashed avocado and tomatoes Lunch: Dinner leftovers packed in Tupperware, side of fruit Salad mixture topped with a protein (chick breast/tuna/hard boiled egg/beans), dressing and side offruit Dinner - Refer to plate technical planner pictures to help select foods and portion ratios of protein, vegetables/starches. Keep it simple and rotate your favorite meals. Sheet nix meals Soups Grilled protein/vegetables/side of starch (plate technical planner picture) Stir can with protein, mixed vegetables, and riced cauliflower or portion controlled whole grain rice. Make your own bowls - South Korean/Argentine/ theme [place] with Zoodles (spiralized vegetable noodles). Roasted vegetable wraps Alter traditional recipes to reflect HIGH QUALITY ingredients in the right QUANTITIES. Snacks - portion controlled: Raw veggies (can have with hummus, mashed avocado, salsa). Unsalted nuts Fruit (1 serving). (optional side of peanut butter) Air pop popcorn [place] and low fat nigerien cheese rolled up String cheese Protein balls (mix rolled oats, nut butter, flax seeds, dash almond milk). Beverages: Water Coffee, Hot tea Unsweetened ice tea EATING OUT: Research menu online, include nutritional information. Make your order decision before getting to restaurant. Stick to recommended portions (plate technical planner picture). Ask for substitutions or modifications. [...] baked potato, sprouted grain bread, chick peas https://www.Bookit.com.com/article/6915980/ukhzbvbajebhy-wafh-joti-for-beginners / https://www.Bookit.com.com/category/4274/kzovuzuqawpia-shxb-jvpbjd/ https://www.Bookit.com.com/category/4300/cikfawaqlndom-tiih-fgsw-plans/ My current favorite cookbooks are documented in this encounterThe [facility]01-03-2024 History of Present illness Narrative* Christie Phan MD - 05/26/2023 5:00 PM EST Images from the original note were not included. [facility] Follow-Up Appointment [...] refer to nutrition to work towards a [facility] diet Plan Diagnoses and all orders [...] the date of the service which included bibz-us-xkkq patient care, completing clinical documentation, performing a medically appropriate examination, counseling and educating the patient/family/caregiver, and ordering medications, tests, or procedures. Christie Phan MD, MA, [facility] Lifestyle Medicine Specialist documented in this encounterThe [facility]01-03-2024 [facility]12-27-2023 NoteMet[facility]12-04-2023 Miscellaneous Notes * Telephone Encounter - Renate Lawrence MA - 04/26/2023 5:26 PM EST Medication pending with new pharmacy information. documented in this encounterThe [facility]12-04-2023 NoteMet[facility]12-04-2023 History of Present illness Narrative* Chirstie Phan MD - 04/26/2023 4:15 PM EST Images from the original note were not included. [facility] Virtual Follow-Up [...] the date of the service which included lcwg-oa-yrol patient care, completing clinical documentation, performing a medically appropriate examination, counseling and educating the patient/family/caregiver, and ordering medications, tests, or procedures. I have communicated my name and active licensure. The patient's identity and physical location wereverified at the time of this visit. Either the patient or their legal member services representative has been informed of the risks and benefits of -- and alternatives to -- treatment through a remote evaluation andconsents to proceed with the evaluation remotely. Christie Phan MD, MA, [facility] Lifestyle Medicine Specialist documented in this encounterThe [facility]12-04-2023 Nurse Note* Renate Lawrence MA - 04/26/2023 2:46 PM EST Spoke to Jones Haley, confirmed patient is registered on Partender and is prepared for their appointment. Confirmed the patient has updated medications, allergies, and questionnaires via Partender. Informed patient if there is an issue with the connection, provider will send the patient a secure link. If provider is running late, patient should remain connected to the visit. Patient verbalized understanding. documented in this encounterThe [facility]12-04-2023 NoteMet[facility]11-30-2023 Miscellaneous Notes* Telephone Encounter - Enma Hamm RN - 04/22/2023 3:48 PM EST Pt called for Iron results; possible need for transfusion. Pt aware no need for iron infusion at this time. Enma Hamm, RN documented in this encounterThe [facility]11-24-2023 [facility]11-24-2023 NoteHNO ID: [id number] Author: Kenzie Shannon Service: ? Author Type: ? Type: Progress Notes Filed: 04/16/2023 11:10 AM Note Text: Patient Identification confirmed: yes. Injection given and documented on JUL per provider order. Kenzie ShannonMetrohealth Parma Medical Center11-24-2023 History of Present illness Narrative* Kenzie Shannon - 04/16/2023 10:55 AM EST Patient Identification confirmed: yes. Injection given and documented on JUL per provider order. Kenzie Shannon documented in this encounterThe [facility]11-09-2023 [facility]10-27-2023 NoteHNO ID: [id number] Author: Kenzie Shannon Service: ? Author Type: ? Type: Progress Notes Filed: 03/19/2023 11:22 AM Note Text: Patient Identification confirmed: yes. Injection given and documented on JUL per provider order. Kenzie ShannonMetrohealth Par[facility] Medical Center10-27-2023 History of Present illness Narrative* Kenzie Shannon - 03/19/2023 11:06 AM EDT Patient Identification confirmed: yes. Injection given and documented on JUL per provider order. Kenzie Shannon documented in this encounterThe [facility]10-24-2023 [facility]10-24-2023 History of Present illness Narrative* Marija Ziegler - 03/16/2023 10:13 AM EDT CMN RECEIVED BY [facility] VIA FAX, COMPLETED, AND PLACED IN PROVIDER MAILBOX FOR SIGNATURE On 2022 By Marija Ziegler [employer] SENDING CMN: JOSH SIGNED AND DATED CMN, FAXED TO DME & CONFIRMATION PAGE RECEIVED: 03.24.23 documented in this encounterThe [facility]10-19-2023 NoteMet[facility]10-19-2023 History of Present illness Narrative* Beatriz Sanchez LPN - 03/11/2023 8:26 AM EDT AMBULATORY PATIENT EDUCATION TOPIC: SURVIVAL SKILLS: weekly [...] LPN In Department: RHEUMATOLOGY documented in this encounterThe [facility]10-18-2023 Miscellaneous Notes* Telephone Encounter - Christie Phan MD - 03/10/2023 2:18 PM EDT Spoke with patient. We stopped her trulicity because of side effects. She only took the cymbalta for a week. She will restart and we will see how she is doing in 2 months. Have also ordered insulin labs to check for insulin resistance. documented in this encounterThe [facility]10-09-2023 Miscellaneous Notes* Telephone Encounter - Lynne Ni MD - 03/01/2023 3:27 PM EDT For chart: Eye exam 02/26/23 no ocular complication related to medication. * Telephone Encounter - Beatriz Sanchez LPN - 03/01/2023 2:38 PM EDT [facility] Placed on your desk for review. documented in this encounterThe [facility]09-29-2023 Nurse Note* Radha Kebede MA - 02/19/2023 11:48 AM EDT Patient Identification confirmed: yes. Injection given and documented on JUL per provider order. Radha Schofield MA documented in this encounterThe [facility]09-29-2023 Instructions* Patient Instructions* Jose Najera MD - 02/19/2023 11:40 AM EDT B12 shot today and every 4 weeks. Continue Folic acid. Follow up in 8 Weeks - labs 1 week before. documented in this encounterThe [facility]09-29-2023 [facility]09-29-[facility] History of Present illness Narrative* Jose Najera MD - 02/19/2023 11:32 AM EDT Images from the original note were not included. AMBULATORY TELEPHONE VISIT Jones Melissa Haley has consented to this telephone encounter. Persons Present: Patient and myself Chief Complaint/Reason: Anemia; To review recent blood work. HPI: Total Time Spent: 21 minutes Wilmer Driver APRN.RICE FARMER NAME: Jones Haley CLINIC NO.: [id number] DATE OF SERVICE: February 19, 2023 ([place]) [...] ffolic acid and states that she just resumedthe folic acid. She has been having heavy [...] lip done 2 days ago at [facility] - awaiting results. B12 helps especially [...] She has missed a few B12 injections. Shefollows with multiple doctors including and echometer engineer, counter hop, hematology nurse and PCP. She has been told they are thinking her problems are related to lupus and/or fibromyalgia. She is on medication for POTS. She states that she has been sick since 2019. She states that its constantly something . She has had intermittent chest pain episodes. She states she feels like she has fevers butdoes not actually have a fever. She has a strange sensation to her scalp. She has lost some hair. She states that her body is stiff and everything hurts. She states that something is wrong and just ex hausted with nobody finding exactly what is wrong [...] which included preparing to see the patient, bjbw-cp-ysad patient care, completing clinical documentation, performing a medically appropriate examination, counseling and educating the patient/family/caregiver, ordering medications, tests, or p rocedures, and independently interpreting results (not separately reported). Jose Najera MD, CPE Hematology and Oncology Services Provided at: [place], [place] CC: Madelaine Ferris MD [id number] [id number] documented in this encounterThe [facility]09-26-2023 Miscellaneous Notes* Telephone Encounter - Lynne Ni MD - 02/16/2023 6:50 AM EDT Notify patient medication sent as requested Thank you. Patient's request for medication is as follows: Requested Prescriptions Pending Prescriptions Disp Refills azaTHIOprine (IMURAN) 50 mg tablet [Pharmacy Med Name: AZATHIOPRINE 50 MG TABLET] 90 tablet 3 Sig: TAKE 3 TABLETS BY MOUTH DAILY WITH FOOD. HOLD IF ON ANTIBIOTICS OR ILL. Prescription(s) as above. Please process accordingly. Lynne Ni MD * Telephone Encounter - Krista Braswell MA - 02/15/2023 8:04 AM EDT Most recent Rheumatology visit: 02/04/2023 (with Lynne [...] RAYRAY INJECTION TEACHING 03/11/2023 7:30 AM [facility] ON LICENSE OF [facility] VIDEO SPEC EST 08/12/[facility]23 9[facility] Last Ophthalmology Check for Plaquenil (Hydroxychloroquine) [...] diagnoses: Vitamin D deficiency documented in this encounterThe [facility]09-18-2023 Miscellaneous Notes* Telephone Encounter - AvaMirela barboza - 02/08/2023 11:12 AM EDT Spoke with patient Will get labs done when she does labs in Dec for Dre/Onc Mailed orders for DXA to pt so she can go to [facility] Pre cert Benlyst Scheduled Teaching visit for 4 weeks out to give time for ins and to receive medication. Will reschif not auth or received Scheduled [address] Ni in 6 mo Mirela Carlos February 08, 2023 11:15 AM * Telephone Encounter - Lynne Ni MD - 02/04/2023 8:40 AM EDT Please call and schedule nonfasting labs 04/2023 Due for bone mineral density (1st time) patient requests order for [place] Please schedule follow up office visit for [...] accordingly. Lynne Ni MD documented in this encounterThe [facility]09-14-2023 History of Present illness Narrative* Lashelljessicamax Carlene - 02/04/2023 9:31 AM EDT [facility] received prescription(s) for Benlysta from Dr. Ni. Benefits investigation was conducted, indicating that a prior authorization is required by patients plan with [facility]. Encounter will be updated once prior authorization has been submitted by [facility]. Carlene Rendon welfare supervisor [facility], Inflammatory P: [phone] F: [phone] documented in this encounterThe [facility]09-14-2023 NoteMet[facility]09-14-2023 NoteMet[facility]09-14-2023 NoteMet[facility]09-14-2023 Note[facility]09-14-2023 History of Present illness Narrative* Lynne Ni MD - 02/04/2023 8:20 AM EDT THIS IS A AMBULATORY VIRTUAL VISIT Patient has verbally agreed/consented to this virtual encounter, not originating from a related Evaluation & Management service provided within the previous 7 days. NOTE: Cannot be used if an Evaluation & Management service or procedure is planned within the next 24 hours. I have communicated my name and active licensure. The patient's identity and physical location wereverified at the time of this visit. Either the patient or their legal member services representative has been informed of the risks and benefits of -- and alternatives to -- treatment through a remote evaluation andconsents to proceed with the evaluation remotely. It [...] daily 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 2tab daily, folic acid daily, cymbalta,tylenol, motrin. Patient interested in starting benlysta 07/2022 recent oral steroids. Has GERD/ no crohns. 2weeks ago eye exam, due for plaquenil testing soon. limited exercise due to POTs. More raynauds in feet. L>R wrist swelling. Chronic current painin scalp/hair, legs, arms, wrists worse in last 2weeks. Reports pain 6/10. Has 10min minimal AM stiffness. Fevers off and on. COVID vaccine 09/28/20, 10/19/20, 05/26/21, 02/08/22. Skin changes better with p rednisone/currently taking 10mg daily. In ED for rib cage pain, negative workup, gave mobic. Feels safe at home. Has enough food, supplies and medications. Overall uncomfortable but happy with rheum care. No falls/fx/trauma/illness/oral sores//jaw pain/dysphagia/epistaxis/hemoptysis since last visit. No adverse effects [...] neurology/on metoprolol for POTs, avoid aggravating triggers, group home pain recommendations per primary care provider/pain clinic/patient currently declined cymbalta/lyrica, see ortho, prn brace, start fall precautions 06/15/22:in R knee brace since ACL with meniscal tear from fall/tripped over groceries 02/2022 initially in wheelchair, will treat with PT, has not started yet. saw hematology 05/20/22 for monthly vitamin B12 injections, daily folic acid. Reports numbness, swollen glands, weight changes, fevers. Hadtwo vitamin b12 injections. On CPAP for JOSE RAFAEL. taking vitamin D script,did not take cymbalta due to side effect concerns, improved burning pain of back of pain lyrica/stopped since burning pain decreased thus patient self stopped, plaquenil 2tabs daily, motrin. Less hair loss lately. Due eye exam. Onprednisone 2- 3months ago 5-10mg daily from . original skin [...] since last visit. No adverse effects with me ds. No other complaints. Patient denies fever, chills, cp, dyspnea, nausea, vomiting, night sweats,scalp tenderness, visual changes, hernandez, bowel/bladder changes, or [...] Due for eye exam. Labs sent to [place]/completed in 06/2021 (no results faxed to office, but patient pulled up results on her phone). Chronic current pain in neck, flank area, mid back, knees, legs, arms, all over pain. Better with lyrica 75mg 3times a day. Reports pain -12/31. Couple hrs AM stiffness. COVID vaccine [employer] 09/28/20, 10/19/20, 05/26/21. Feels safe at home. Has enough food, supplies and medications. Overall uncomfortable but happy with rheum care. No falls/fx/trauma/illness/oral sores/rash/hairloss/jaw pain/dysphagia/epistaxis/hemoptysis since last visit. No adverse effects with meds. No other complaints. Patient denies fever, chills, cp, dyspnea, nausea, vomiting, night sweats, scalp tenderness, visual changes, hernandez, bowel/bladder changes, weight changes orother complaints. Last visit supportive care, start plaquenil/notify [...] pain: yes H/o precedent/frequent infection(s): as above Enthesopathy/Newton's/heel/plantar tenderness: hands random painful/tingling Skin thickening, psoriasis, [...] COVID-19 original vaccine, age 12+ yr, monovalent ([employer] - PURPLE TOP) 09/28/2020 10/19/2020 05/26/2021 COVID-19 vaccine, age 12+ yr, bivalent ([employer]) 02/08/2022 Pneumovax no Flu shot no Tetanus [...] crp<0.3, uric acid 4.7, iron 77;negative spep, Mprotein; 03/04/22 low vitamin D 30.5 (189), IGG 645;high vitamin b12>2000, IGM 540;normal cbc, cmp, iron studies, folate 6.6, uric acid 5.2, bev 3.2;negative syphilis, HIV; 10/24/21 low vitamin b12-283, vitamin D 18.9;high esr 30 (33);NL cbc, cmp, negative hla b27; Outside [place] 06/2021 low vitamin D 16, vitamin b12-307;high [...] NECK: no visible thyromegaly or LAD. EXTREMITIES:No clubbing,discoloration,sclerodactyly, periungual erythema, digital ulcers, nail pitting, edema, varicosities. MUSCULOSK: No joint deformities, no rheumatoid nodules, calcifications or tophi. No SI tenderness, no gillian's tenderness, no heel/plantar tenderness, lumbar flexion full, negative Sumaya's test, tinel's and phil tests Swoll JTS:no Tend. JTS: lumbar area, neck, knees, diffusely UEs, axilla, legs, feet, flank pain, decreased rangeof motion due to pain; no warmth/erythema No [...] since taking plaquenil). in R knee brace sinceACL with meniscal tear from fall/tripped over groceries 02/2022 initially in wheelchair, will treatwith PT, has not started yet. saw hematology [...] . original skin changes from biopsy improved withplaquenil. Steroids improved rest of skin except red [...] daily 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 2tab daily, folic acid daily, cymbalta,tylenol, motrin. Patient interested in starting benlysta 07/2022 recent oral steroids. Has GERD/ no crohns. 2weeks ago eye exam, due for plaquenil testing soon. limited exercise due to POTs. More raynauds in feet. L>R wrist swelling. Chronic current painin scalp/hair, legs, arms, wrists worse in last 2weeks. Reports pain 6/10. Has 10min minimal AM stiffness. Fevers off and on. COVID vaccine 09/28/20, 10/19/20, 05/26/21, 02/08/22. Skin changes better with p rednisone/currently taking 10mg daily. In ED for rib cage pain, negative workup, gave mobic. Feels safe at home. Has enough food, supplies and medications. Overall uncomfortable but happy with rheum care. 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, see primary care provider for recurrent flank pain/UTIs, improved with plaquenil 2tabsdaily, start photoprotection, see ophthalmology, steroids/prednisone 10mg daily/ per primary care provider/try weaning off, see derm/?eval recurrent boils, see spine/pain clinic/improved with lyrica/may increase if needed, see derm, start prn heat/ice/otc arthritis creams, low impact weightbearing exercise as tolerated, see neurology/on metoprolol for POTs, avoid aggravating triggers, group home pain recommendations per primary care provider/pain clinic/patient currently declined cymbalta/lyrica, see ortho, prn brace, start fall precautions, answered all questions and concerns, patient voiced understanding. RECOMMENDATION/PLAN: [facility] [employer] on 02/04/23 DXA-AXIAL SKELETON DXA-FOREARM SKELETON Reviewed [...] (200mg) daily with a meal Please see associate property manager every 6-12months while on Hydroxychloroquine. Start 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 [...] your toes, sit-ups, using row machine terminal operator pain recommendations per primary care provider/pain [...] video & audio (virtual) or phone or [id number] patient care, completing clinical documentation, obtaining and/or [...] by letter/electronic shared medical records. cc Gay Enciso, TRUE;Dr.Douglas Sai Ferris MD [facility] AMBULATORY VISIT INTAKE QUESTIONNAIRE Question 02/02/2023 10:32 PM EDT - Filed by Patient 12/25/2022 1:11 PM EDT - Filed by Patient 12/16/2022 8:52 PM EDT - Filed by Patient Has the Patient Had 2 Falls in the Last Year or 1 Fall with Injury or Currently Using an AmbulatoryAssistive Device (Walker, Cane, Wheelchair, Crutches, etc.) No [...] Workers' Compensation? No Do you need an translator and interpreter? No [facility] MYCHART ZOOM MESSAGE Question 02/02/2023 10:32 PM [...] 3 MONTHS on the scale below, where 0is no activity and 10 is the most [...] of Right Forearm or Lower Left Leg. MUMTAZ PROMIS 10 ADULT SHORT FORM V1.0 GLOBAL [...] such as feeling anxious,depressed or irritable? Rarely Rarely In the past [...] < or = 5) documented in this encounterThe [facility]09-14-2023 NoteMetro[facility]09-14-2023 Instructions* Patient Instructions* Lynne Ni MD - 02/04/2023 6:17 AM [...] (200mg) daily with a meal Please see associate property manager every 6-12months while on Hydroxychloroquine. 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 daily [...] your toes, sit-ups, using row machine terminal operator pain recommendations per primary care provider/pain clinic Thank you. BONE MINERAL DENSITY PATIENT INSTRUCTIONS Bone mineral density testing measures the amount of calcium in certain parts of your bones. This information determines how strong your bones are. The test is used to detect osteoporosis, a disease in which the bone's mineral content and density are low, increasing a person's risk of fractures. Thelumbar spine (lower back) and the hip are [...] your usual activities immediately. documented in this encounterThe [facility] Of [facility]09-05-2023 Miscellaneous Notes* Telephone Encounter - Maynor Bryson MA - 01/26/2023 7:46 AM EDT patient has viewed the [employer] message per [employer]. * Telephone Encounter - Lynne Ni MD - 01/24/2023 8:04 PM EDT Please Call patient if Partender note not read to review results/released to [...] accordingly. Lynne Ni MD documented in this encounterThe University Of [facility] Center09-01-2023 Nurse Note* Radha Kebede MA - 01/22/2023 12:17 PM EDT Patient Identification confirmed: yes. Injection given and documented on JUL per provider order. Radha Schofield MA documented in this encounterThe University Of [facility]08-22-2023 Miscellaneous Notes* Telephone Encounter - Christie Phan MD - 01/12/2023 10:30 PM EDT Patient needs appointment before I can refill. * Telephone Encounter - Milagro Mendiola MA - 12/24/2022 9:56 AM EDT Patient's request for medication is as follows: Requested Prescriptions Pending Prescriptions Disp Refills dulaglutide (TRULICITY) 1.5 mg/0.5 mL pen injector 2 mL 0 Sig: Inject 1.5 mg subcutaneously one time a week. Please approve the above prescription(s) to electronically send to [facility] pharmacy. Milargo Mendiola MA documented in this encounterThe [facility] Center08-11-2023 NoteMetrohealth [facility]08-11-2023 History of Present illness Narrative* Misty Nelson MD - 01/01/2023 10:51 AM EDT VIRTUAL VISIT PROGRESS NOTE This is a virtual visit using Partender video visit. It required patient-provider interaction for themedical decision making as documented below. I have communicated my name and active licensure. The patient's identity and physical location wereverified at the time of this visit. Either the patient or their legal member services representative has been informed of the risks and benefits of -- and alternatives to -- treatment through a remote evaluation andconsents to proceed with the evaluation remotely. Last [...] otitis or sinusitis No pneumonia She sees counter hop and was diagnosed with lupus She is on Plaquenil, 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 Prednisone 10mg once daily for the past year; every few months she gets treated with higher doses of prednisone for flares of her symptoms The medications seem to help the body aches She saw the prop attendant Treated with B12 and folic acid We discussed completing her immunology evaluation with pneumovax vaccination and post-vaccination labs. Would also recheck IgG and IgM at that time. She would like to consider this and wait until sheis feeling better before having this done. HISTORY [...] visit. Misty Nelson MD documented in this encounterThe [facility] Of [facility]07-28-2023 Miscellaneous Notes* Telephone Encounter - iWlmer Driver APRN.CNP - 12/18/2022 10:48 AM EDT Spoke with patient this morning, 12/18/2022. Wilmer Driver APRN.CNP * Telephone Encounter - Lidia Argueta RN - 12/18/2022 9:31 AM EDT Pt called sports cartoonist service last evening stating she was suppose to have a phone call with Wilmer at 330 and never received a call. Pt is still waiting (536 pm 12/17/22). Please advise Lidia Argueta RN documented in this encounterThe [facility]07-28-2023 NoteMetro[facility]07-28-2023 History of Present illness Narrative* Wilmer Driver APRN.TRUE - 12/18/2022 9:07 AM EDT Images from the original note were not included. AMBULATORY TELEPHONE VISIT Jones Melissa Haley has consented to this telephone encounter. [...] Total Time Spent: 21 minutes Wilmer Driver APRN.CNP NAME: Jose Carlosfrancisco javierJones CLINIC NO.: [id number] DATE OF SERVICE: October 22, 2022 (Marquis) [...] lip done 2 days ago at [facility] - awaiting results. B12 helps especially [...] She has missed a few B12 injections. Shefollows with multiple doctors including and echometer engineer, counter hop, hematology nurse and PCP. She has been told they are thinking her problems are related to lupus and/or fibromyalgia. She is on medication for POTS. She states that she has been sick since 2019. She states that its constantly something . She has had intermittent chest pain episodes. She states she feels like she has fevers butdoes not actually have a fever. She has a strange sensation to her scalp. She has lost some hair. She states that her body is stiff and everything hurts. She states that something is wrong and just ex hausted with nobody finding exactly what is wrong [...] which included preparing to see the patient, [id number] patient care, completing clinical documentation, performing a medically appropriate examination, counseling and educating the patient/family/caregiver, ordering medications, tests, or p rocedures, and independently interpreting results (not separately reported). Jose Najera MD, CPE Hematology and Oncology Services Provided at: [place], [place] CC: Madelaine Ferris MD [address] [facility] [id number] documented in this encounterThe [facility] Of [facility]07-26-2023 Miscellaneous Notes* Telephone Encounter - Pamella Bettencourt RN - 12/16/2022 1:14 PM EDT Pt notified and verbalizes understanding. Clerical: Please change tomorrow's appointment to a phone visit at the end of Wilmer's day. Preferred number is [phone]. In addition, pt will be in next 12/25/22 @ 1130 for her B12 shot. Please add her to the MA schedule. Thanks! Pamella Bettencourt RN * Telephone Encounter - Wilmer Driver APRN.CNP - 12/16/2022 12:56 PM EDT That would be okay. Have her added at the end of the day. Thanks, Wilmer Driver APRN.CNP * Telephone Encounter - Pamella Bettencourt RN - 12/16/2022 11:01 AM EDT Pt is scheduled for RV w/ Wilmer & B12 tomorrow. She would like to make this a telephone appointment instead and come back next week for B12. Pt had her labs drawn last week. Wilmer: Any objections to meeting w/ pt over the phone tomorrow or would you prefer we switch her toVik's schedule? Pamella Bettencourt, RN documented in this encounterThe [facility] Of [facility]07-23-2023 Miscellaneous Notes* Telephone Encounter - Jose Najera MD - 12/13/2022 8:59 PM EDT No clinical utility or implication for a low anion gap. No other concerning findings. I hope that helps. * Telephone Encounter - Enma Hamm RN - 12/08/2022 1:34 PM EDT MyChart message from pt: Hi, just got [...] advise Enma Hamm RN documented in this encounterThe [facility] Of [facility]07-04-2023 Miscellaneous Notes* Telephone Encounter - Lynne Ni MD - 11/24/2022 9:51 AM EDT Please call patient Thank you for the [...] accordingly. Lynne Ni MD documented in this [facility]06-29-2023 Nurse Note* Margret Cuenca - 11/19/2022 11:01 AM EDT Patient Identification confirmed: yes. Injection given and documented on JUL per provider order. Margret Cuenca documented in this [facility]06-08-2023 [facility]06-01-2023 Nurse Note* Stacy Gutiérrez Ma - 10/22/2022 11:50 AM EDT Patient Identification confirmed: yes. Injection given and documented on MAR per provider order. Stacy Gutiérrez Ma documented in this [facility]06-01-2023 Instructions* Patient Instructions* Jose Najera MD - 10/22/2022 11:43 AM EDT B12 Shot today and every 4 weeks. Continue Folic acid. Follow up in 8 Weeks - labs 1 week before. documented in this [facility]06-01-2023 History of Present illness Narrative* Jose Najera MD - 10/22/2022 11:35 AM EDT Images from the original note were not included. NAME: Jones Haley [facility] NO.: [id number] DATE OF SERVICE: October 22, 2022 (Marquis) [...] lip done 2 days ago at [facility] - awaiting results. B12 helps especially [...] She has missed a few B12 injections. Shefollows with multiple doctors including and echometer engineer, counter hop, hematology nurse and PCP. She has been told they are thinking her problems are related to lupus and/or fibromyalgia. She is on medication for POTS. She states that she has been sick since 2019. She states that its constantly something . She has had intermittent chest pain episodes. She states she feels like she has fevers butdoes not actually have a fever. She has a strange sensation to her scalp. She has lost some hair. She states that her body is stiff and everything hurts. She states that something is wrong and just ex hausted with nobody finding exactly what is wrong [...] decreasing. Initial Visit, March 04, 2022: Jones B Jose Carlosfrancisco javier presents today Hematology and [...] which included preparing to see the patient, kmug-[id number] patient care, completing clinical documentation, performing a medically appropriate examination, counseling and educating the patient/family/caregiver, ordering medications, tests, or p rocedures, and independently interpreting results (not separately reported). Jose Najera MD, CPE Hematology and Oncology Services Provided at: [place], [place] CC: Madelaine Ferris MD [address] [facility] [id number] documented in this encounterThe [facility]05-04-2023 Nurse Note* Stacy Gutiérrez Ma - 09/24/2022 10:22 AM EDT Patient Identification confirmed: yes. Injection given and documented on JUL per provider order. Stacy Gutiérrez Ma documented in this encounterThe [facility]04-18-2023 Miscellaneous Notes* Telephone Encounter - Stacy Hernandez - 09/08/2022 2:27 PM EDT Pharmacy-Reviewed Medication History Patient Name:Jim Haley : 1980 Patient Contact Attempt: First attempt Adherence Packing Program Accepted? No, patient does not wish to participate. Patient is not eligible for adherence packaging because PCP is not within [facility]. Patient wishes to continue at [facility] since medication bottles will look the same and then she can pick-up the medications when she needs them. Stacy Hernandez September 08, 2022 2:28 PM [facility] [phone] documented in this encounterThe [facility]04-17-2023 History of Present illness Narrative* Christie Phan MD - 09/07/2022 2:00 PM EDT Images from the original note [...] which included preparing to see the patient, [id number] patient care, completing clinical documentation, performing a medically appropriate examination, counseling and educating the patient/family/caregiver, ordering medications, tests, or p rocedures, and communicating with other HCPs (not separately reported). I have communicated my name and active licensure. The patient's identity and physical location wereverified at the time of this visit. Either the patient or their legal member services representative has been informed of the risks and benefits of -- and alternatives to -- treatment through a remote evaluation andconsents to proceed with the evaluation remotely. Christie Phan MD, [place], [facility] Lifestyle Medicine Specialist documented in this [facility]04-17-2023 Nurse Note* Milagro Mendiola MA - 09/07/2022 2:00 PM EDT Called pt to do intake for video visit pt unavailable lft vm msg sent my chart. Milagro Mendiola MA documented in this [facility]04-10-2023 Miscellaneous Notes* Telephone Encounter - Shantel Higgins MA - 08/31/2022 8:38 AM EDT called [facility] pharmacy - pharmacy had 1 refill remaining no action needed from our office documented in this [facility]04-06-2023 Nurse Note* Stacy Gutiérrez Ma - 08/27/2022 10:31 AM EDT Patient Identification confirmed: yes. Injection given and documented on JUL per provider order. Stacy Gutiérrez Ma documented in this [facility]04-06-2023 History of Present illness Narrative* Wilmer Driver APRN.TRUE - 08/27/2022 10:00 AM EDT Images from the original note were not included. NAME: Jones Haley [facility] NO.: [id number] DATE OF SERVICE: August 27, 2022 (Bob) [...] She has missed a few B12 injections. Shefollows with multiple doctors including and echometer engineer, counter hop, hematology nurse and PCP. She has been told they are thinking her problems are related to lupus and/or fibromyalgia. She is on medication for POTS. She states that she has been sick since 2019. She states that its constantly something . She has had intermittent chest pain episodes. She states she feels like she has fevers butdoes not actually have a fever. She has a strange sensation to her scalp. She has lost some hair. She states that her body is stiff and everything hurts. She states that something is wrong and just ex hausted with nobody finding exactly what is wrong [...] Resp 16 Ht 5' 7.008 (1.70m) Wt 261lb 9.6 oz (118.7kg) SpO2 96% LMP 02/26/2022 [...] 2012 pilonidal cyst PAST SURGICAL HISTORY OF 1990s D & C PAST SURGICAL HISTORY OF 1990s ablation Social History Tobacco Use Smoking status: [...] APRN.TRUE Hematology and Oncology Services Provided at: [place], [place] CC: Madelaine Ferris MD [address] [facility] [address] I spent a total of 30 minutes on the date of the service which included preparing to see the patient, [id number] patient care, completing clinical documentation, obtaining and/or reviewing separately obtained history, performing a medically appropriate examination, counseling and educating the pat ient/family/caregiver, ordering medications, tests, or procedures, independently interpreting results (not separately reported), and communicating results to the patient/family/caregiver. documented in this encounterThe [facility] Of [facility]03-29-2023 Miscellaneous Notes* Telephone Encounter - Freda Noland RN - 08/19/2022 6:42 PM EDT -noted MyChart message read by patient 08/19/22 . Last read by Jones Haley at 3:33 PM on 08/19/2022 * Telephone Encounter - Lynne Ni MD - 08/19/2022 3:21 PM EDT Please Call patient if MyChart note not read to review results/released to My Chart if tests completed at [facility]: Improved/ mildly high normal inflammatory test- will monitor. Improved/mildly low vitamin b12- take over the counter 5021-4072 mcg daily. Improved/ normal rest of rheum [...] accordingly. Lynne Ni MD documented in this encounterThe [facility]03-28-2023 Miscellaneous Notes* Telephone Encounter - Beatriz Sanchez LPN - 08/18/2022 8:32 AM EDT MC read by patient. * Telephone Encounter - Lynne Ni MD - 08/17/2022 5:26 PM EDT Please call patient. Thank you for the [...] accordingly. Lynne Ni MD documented in this encounterThe [facility]03-20-2023 Miscellaneous Notes* Telephone Encounter - Christie Phan MD - 08/10/2022 9:46 AM EDT [facility] requesting refill, patient never started according to the chart and I have not seen her in follow-up. * Telephone Encounter - Jami Everett Cma - 08/10/2022 7:40 AM EDT [facility] Pharmacy request for the following refill(s): Requested Prescriptions Pending Prescriptions Disp Refills DULoxetine (CYMBALTA) 20 mg capsule [Pharmacy Med Name: DULOXETINE HCL DR 20 MG CAP] 30 capsule 2 Sig: TAKE 1 CAPSULE BY MOUTH ONCE DAILY Please review and advise. Jami Everett Cma documented in this encounterThe [facility] Of [facility]03-06-2023 Instructions* Patient Instructions* Lexus Heck APRN.TRUE - 07/27/2022 9:12 PM EST Images from the original note were not included. Your most recent body mass index (BMI) that we have on record is 40.56 kg/m2. Obstructive sleep apnea (JOSE RAFAEL) worsens with an increase in weight; reduction in weight may improve or resolve your JOSE RAFAEL. Ifyou are not already seeking treatment, there are resources available at the [facility] such as a nutrition consultation or referral to weight management programs at our [facility] [place]. Please let us know if we can [...] supplies. You will be responsible for your deductible,co-payments, and out of pocket expenses. Item Medicare [...] the central scheduling system for the [facility] [place] at [phone]. [facility] now offers direct scheduling for patients to schedule appointments. Virtual visits are also available. If not covered by your insurance, there is a 35% discount. Please contact your insurance to determine coverage. Call the office at [phone], option #5 for questions. documented in this encounterThe [facility]03-06-2023 History of Present illness Narrative* Lexus Heck APRN.CNP - 07/27/2022 10:30 AM EST Images from the original note were not included. [facility] Virtual Visit [...] including positive airway pressure (PAP) therapy, surgery, oralappliance and conservative measures (avoidance of alcohol, sedative medications and sleeping in theback position, management of nasal obstruction and weight loss) -Counseled in regards to CPAP therapy. - Will start Auto CPAP 5-15 cmH2O with a Nasal mask. - I will have a prescription sent to a [employer] company - [employer] who will be calling you in the next 1-2 weeks or so. Please call them directly or us if you do not hear from them in this time frame. - Will request formal mask fitting - You should be eligible for new supplies approximately every 3-6 months, depending on your insurance coverage. - If your mask doesn't fit well, call the [employer] company before 30 days are up to get a new mask without an additional charge. - Insurance requires regular usage and periodic office follow ups for PAP therapy, to continue to cover supplies. Have advised to maintain a sleep/wake diary- reports frequent daytime naps, with days where she mayspend > 12 hours in bed. If hypersomnia persists after AHI normalized will consider additional testing. Although today she has an EPSS of 4. Tips for good sleep hygiene [facility]. - Follow up in 2 months in the office. Recommend scheduling this appointment now to ensure the besttime for you. [facility] on 04/13/22 CONSULT TO SLEEP MEDICINE - ADULT CPAP/BIPAP/OTHER PAP THERAPY ORDER Lawanda Miranda MD Interval history : Here for follow up for sleep apnea management. SLEEP APNEA Sleep apnea type : JOSE RAFAEL Most Recent Apnea-Hypopnea Index (AHI): 5.3 Treatment : PAP therapy DME: Josh [facility] fax: [phone] DME ph: [phone] PAP History: Current PAP settin-15 cm H2O. [...] or near accidents due to drowsy drivin [place] Sleepiness Scale 04/12/2022 07/23/2022 Score 4 (No daytime sleepiness) 8 (No daytime sleepiness) PROMIS CAT Sleep Disturbance 04/12/2022 07/23/2022 PROMIS Sleep Disturbance T-Score 62 (moderate) 54 (within normal limits) Insomnia Severity Index 04/12/2022 Score 17 PHQ-9 04/12/2022 07/23/2022 Score 7 8 PROMIS Global Health - (T-Scores - the mean of general population = 50. Five points is a clinicallymeaningful difference.) 03/10/2022 05/18/2022 05/19/2022 Physical T-Score 29.6 [...] medications, tests, or procedures. documented in this encounterThe [facility]03-03-2023 Miscellaneous Notes* Telephone Encounter - Kyara Basurto - 07/24/2022 4:10 PM EST Patient called today. : 1980 Allergies: Bactrim [Sulfamethoxazole], Codeine, Clindamycin, Doxycycline, Latex, Sulfamethoxazole-Trimethoprim, and Trimethoprim Reason for call: Patient calling. Due to changing her lab appointment to coincide with being on hermedications for 1 month, the orders placed to [...] back to this agent, please send to appropriateoffice pool. 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 documented in this encounterThe [facility]03-01-2023 Miscellaneous Notes* Telephone Encounter - Gem Mercedes RN - 07/22/2022 2:37 PM EST [employer] message sent documented in this [facility]12-28-2022 History of Present illness Narrative* Kenzie Sahnnon - 05/20/2022 2:28 PM EST Patient Identification confirmed: yes. Injection given and documented on JUL per provider order. Kenzie Shannon documented in this [facility]12-28-2022 Miscellaneous Notes* Addendum Note - Jose Najera MD - 05/20/2022 2:27 PM ESTAddended by: JOSE NAJERA on: 05/20/2022 02:27 PM Modules accepted: Orders documented in this [facility]12-28-2022 Instructions* Patient Instructions* Jose Najera MD - 05/20/2022 2:23 PM EST B12 Shot Today and every 4 weeks Get fit for CPAP mask and setting this 05/28/2021 Continue Folic acid. RTC in 8 Weeks - labs 1 week before. documented in this [facility]12-28-2022 History of Present illness Narrative* Jose Najera MD - 05/20/2022 1:30 PM EST Images from the original note were not included. NAME: Jose Carlosfrancisco javierJones CLINIC NO.: [id number] DATE OF SERVICE: May 20, 2022 ([place]) [...] which included preparing to see the patient, lwpa-no-wcyl patient care, completing clinical documentation, performing a medically appropriate examination, counseling and educating the patient/family/caregiver, ordering medications, tests, or p rocedures, and independently interpreting results (not separately reported). Jose Najera MD, [facility] Hematology and Oncology Services Provided at: [place], [place] CC: Jose Najera [address] [place] [address] [facility] [address] Madelaine Ferris MD, MD [address] [facility] [id number] CC: Madelaine Ferris MD [address] [id number] documented in this encounterThe [facility]12-13-2022 Miscellaneous Notes* Telephone Encounter - Gem Mercedes RN - 05/05/2022 2:39 PM EST Faxed order, office notes, demographics, and sleep study to: DME name: Josh Hugh [place] fax: [phone] [facility] ph: [phone] Confirmation received. documented in this encounterThe [facility]12-13-2022 Miscellaneous Notes* Telephone Encounter - Gem Mercedes RN - 05/05/2022 12:00 PM EST [employer] message sent documented in this encounterThe [facility]12-13-2022 Miscellaneous Notes* Telephone Encounter - ANALILIA Monterroso - 05/05/2022 11:[address] [facility] received your PAP order. Due to a major [employer] recall and manufacturing shortage, we are unable to fulfill the request to provide your patient with a CPAP/BIPAP machine at this time. We will keep the request on file and provide when inventory is available or you can forward the order to another DME provider such as [employer], [employer] or [employer]. Caring for our patients is our top priority and we apologize for this delay. Thank you for your patience during this time. [phone] #1 documented in this encounterThe [facility]12-02-2022 Miscellaneous Notes* Telephone Encounter - Luann Lance MD - 04/24/2022 2:54 PM EST After review of Jones's referral, it was determined that the visit needed to be in person to allowfor detailed physical exam for connective tissue disorder evaluation. I called today to discuss her concerns about in-person visit for connective tissue disorder evaluation. She did not report hypermobility, however, she noted that her allergy doctor has noted concern for EDS. Her counter hop has told her that she has Lupus. Based on her history, I noted we can offer in-person evaluations for herself and/or her son to see if any genetic testing may be useful. I validated and provided support on the difficulty with her ambulation and transport concerns. [facility] and only available at [facility]. I offered social work and/or transport assistance for the visit. She declined this and will discuss with her regarding the transport. She verbalized understanding the reasons for in-person evaluation recommended. She has the [facility] line and will call to reschedule for an in-person evaluation at [facility]. Luann Lance MD Food Tray Assembler, Associate Staff [facility] documented in this encounterThe [facility]11-30-2022 Miscellaneous Notes* Telephone Encounter - Eliza Licea, Research Coordinator - 04/22/2022 2:24 PM EST Reached out to Jones to discuss her [...] copy of the report. Confirmed patient's email [email or web address] Eliza Licea Genetic Counselor Executive Creative Director documented in this encounterThe [facility] Of [facility]11-08-2022 Miscellaneous Notes* Telephone Encounter - Renate Lawrence MA - 03/31/2022 2:34 PM EST [facility] pharmacy electronically requests the following refill(s) Requested Prescriptions Pending Prescriptions Disp Refills DULoxetine (CYMBALTA) 20 mg capsule [Pharmacy Med Name: DULOXETINE HCL DR 20 MG CAP] 30 capsule 2 Sig: TAKE 1 CAPSULE BY MOUTH ONCE DAILY Renate Lawrence MA documented in this [facility]11-07-2022 Miscellaneous Notes* Telephone Encounter - Maria Eugenia Sheehan LPN - 03/30/2022 11:53 AM EST LVM and sent MyChart regarding Dr. Nelson's directive. * Telephone Encounter - Misty Nelson MD - 03/26/2022 5:30 PM EDT Please see mychart message. Please contact patient and confirm that she has not previously receivedpneumovax. If not, then she should receive the pneumovax (can be done through her PCP if she prefers). She would need post-vaccination labs with us after at least 6 weeks. Thanks. Misty Nelson MD documented in this [facility]11-07-2022 Miscellaneous Notes* Telephone Encounter - Maria Eugenia Sheehan LPN - 03/30/2022 11:49 AM EST LVM and sent MyChart regarding Dr. Nelson's directive. documented in this [facility]10-26-2022 Instructions* Patient Instructions* Jose Najera MD - 03/18/2022 11:16 AM EDT Referral for sleep study pending Start on Folic acid. RTC in 8 Weeks - labs 1 week before. documented in this [facility]10-26-[facility] History of Present illness Narrative* Jose Najera MD - 03/18/2022 10:45 AM EDT Images from the original note were not included. NAME: Jones Haley CLINIC NO.: [id number] DATE OF SERVICE: March 18, 2022 ([facility]) [...] Resp 16 Ht 5' 7.008 (1.70m) Wt 250lb (113.4kg) SpO2 98% LMP 02/26/2022 BMI 39.15 [...] mouth once daily. (Patient not taking: Reported on03/10/2022) hydrOXYchloroQUINE (PLAQUENIL) 200 mg tablet Take one [...] which included preparing to see the patient, mcuw-os-hmxq patient care, completing clinical documentation, performing a medically appropriate examination, counseling and educating the patient/family/caregiver, ordering medications, tests, or p rocedures, and independently interpreting results (not separately reported). Jose Najera MD, CPE Hematology and Oncology Services Provided at: [place], [place] CC: Madelaine Ferris MD [facility] [address] documented in this encounterThe [facility]10-18-2022 History of Present illness Narrative* Misty Nelson MD - 03/10/2022 2:14 PM EDT VIRTUAL VISIT PROGRESS NOTE This is a virtual visit using Partender video visit. It required patient-provider interaction for [...] the HR increases again She sees a dermatological surgeon in [place] PCP is running the Holter and echo [...] but was not pursued yet Lives in [place] She did have LN biopsy in the [...] visit. Misty Nelson MD documented in this encounterThe [facility]10-17-2022 History of Past illness Narrative* Problem Noted Date Diagnosed Date Resolved Date Obesity, Class II, BMI 35-39.9 03/09/2022 03/10/2023 Obesity (BMI 30-39.9) 05/31/20142016 documented as of this encounter (statuses as of 03/10/2023) [facility] History of Past illness Narrative* Problem Noted Date Diagnosed Date Resolved Date Obesity, Class II, BMI 35-39.9 03/09/2022 03/10/2023 Obesity (BMI 30-39.9) 05/31/20142016 documented as of this encounter (statuses as of 03/11/2023) [facility] History of Past illness Narrative* Problem Noted Date Diagnosed Date Resolved Date Obesity, Class II, BMI 35-39.9 03/09/2022 03/10/2023 Obesity (BMI 30-39.9) 05/31/20142016 documented as of this encounter (statuses as of 03/19/2023) [facility] History of Past illness Narrative* Problem Noted Date Diagnosed Date Resolved Date Obesity, Class II, BMI 35-39.9 03/09/2022 03/10/2023 Obesity (BMI 30-39.9) 05/31/20142016 documented as of this encounter (statuses as of 03/24/2023) [address]17-2022 History of Past illness Narrative* Problem Noted Date Diagnosed Date Resolved Date Obesity, Class II, BMI 35-39.9 03/09/2022 03/10/2023 Obesity (BMI 30-39.9) 05/31/20142016 documented as of this encounter (statuses as of 04/16/2023) [address]17-2022 History of Past illness Narrative* Problem Noted Date Diagnosed Date Resolved Date Obesity, Class II, BMI 35-39.9 03/09/2022 03/10/2023 Obesity (BMI 30-39.9) 05/31/20142016 documented as of this encounter (statuses as of 04/23/2023) [address]17-2022 History of Past illness Narrative* Problem Noted Date Diagnosed Date Resolved Date Obesity, Class II, BMI 35-39.9 03/09/2022 03/10/2023 Obesity (BMI 30-39.9) 05/31/20142016 documented as of this encounter (statuses as of 04/27/2023) [address]17-2022 History of Past illness Narrative* Problem Noted Date Diagnosed Date Resolved Date Obesity, Class II, BMI 35-39.9 03/09/2022 03/10/2023 Obesity (BMI 30-39.9) 05/31/20142016 documented as of this encounter (statuses as of 04/27/2023) [address]17-2022 History of Past illness Narrative* Problem Noted Date Diagnosed Date Resolved Date Obesity, Class II, BMI 35-39.9 03/09/2022 03/10/2023 Obesity (BMI 30-39.9) 05/31/20142016 documented as of this encounter (statuses as of 05/31/2023) [address]17-2022 History of Past illness Narrative* Problem Noted Date Diagnosed Date Resolved Date Obesity, Class II, BMI 35-39.9 03/09/2022 03/10/2023 Obesity (BMI 30-39.9) 05/31/20142016 documented as of this encounter (statuses as of 07/13/2023) [address]17-2022 History of Past illness Narrative* Problem Noted Date Diagnosed Date Resolved Date Obesity, Class II, BMI 35-39.9 03/09/2022 03/10/2023 Obesity (BMI 30-39.9) 05/31/20142016 documented as of this encounter (statuses as of 07/13/2023) [address]17-2022 History of Past illness Narrative* Problem Noted Date Diagnosed Date Resolved Date Obesity, Class II, BMI 35-39.9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 Other vitamin B12 deficiency anemia Elevated sed rate Elevated sedimentation rate Chronic fatigue and malaise Chronic fatigue syndrome High total serum IgM JOSE RAFAEL (obstructive sleep apnea) Obstructive sleep apnea (adult) (pediatric) documented [facility] this [facility] [place] [facility]* Diagnosis Insulin resistance, unspecified- Primary Depression, recurrent (HCC) Major depressive disorder, recurrent episode, unspecified Chronic pain syndrome documented in this encounter [facility] note* Diagnosis Systemic lupus erythematosus, unspecified SLE type, unspecified organ involvement status (HCC)- Primary documented [facility] [place] [facility]* Diagnosis 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 Other vitamin B12 deficiency anemia Elevated sed rate Elevated sedimentation rate documented [facility] [place] [facility]* Diagnosis 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 Other vitamin B12 deficiency anemia Elevated sed rate Elevated sedimentation rate documented [facility] [place] [facility]* Diagnosis Obesity, Class III, BMI >= 40- Primary Morbid obesity FUO (fever of unknown origin) Fever, unspecified Other chronic pain documented [facility] [place] [facility]* Diagnosis Obesity, Class III, BMI >= 40 Morbid obesity documented [facility] [place] [facility]* Diagnosis Obesity, Class III, BMI >= 40- Primary Morbid obesity Other chronic pain documented in this encounter [facility] note* Diagnosis Irregular heart rate- Primary Essential hypertension Unspecified essential hypertension Autonomic dysfunction Obstructive sleep apnea syndrome Obstructive sleep apnea (adult) (pediatric) Primary hypertension Unspecified essential hypertension documented in this encounter [facility] Work Phone: Evaluation note* Diagnosis Autoimmune disease (CMS/HCC)- Primary Autoimmune disease, not elsewhere classified Autonomic dysfunction Lumbosacral radiculopathy Thoracic or lumbosacral neuritis or radiculitis, unspecified Bilateral leg weakness Muscle weakness (generalized) [facility] [place] [facility] Diagnosis Shortness of breath- Primary Paroxysmal supraventricular tachycardia PAC (premature atrial contraction) Supraventricular premature beats Current smoker Systemic lupus erythematosus, unspecified SLE type, unspecified organ involvement status (CMS/HCC) Palpitations Obstructive sleep apnea syndrome Obstructive sleep apnea (adult) (pediatric) Morbid obesity (CMS/HCC) Morbid obesity Bilateral lower extremity edema documented in this encounter [facility] Work Phone: Evaluation note* Diagnosis 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 Other vitamin B12 deficiency anemia Elevated sed rate Elevated sedimentation rate documented [facility] encounter [facility] [place] [facility]* Diagnosis Systemic lupus erythematosus with other organ involvement (HCC)- Primary documented [facility] this encounter [facility] [place] [facility]* Diagnosis Systemic lupus erythematosus with other organ involvement (HCC)- Primary documented [facility] this encounter [facility] [place] [facility]* Diagnosis 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 Other vitamin B12 deficiency anemia Elevated sed rate Elevated sedimentation rate documented [facility] this encounter [facility] [place] [facility]* Diagnosis Other systemic lupus erythematosus with other organ involvement (HCC)- Primary Vitamin D deficiency Unspecified vitamin D deficiency Elevated LFTs Other abnormal blood chemistry Anemia of chronic disease Anemia of other chronic disease Elevated sed rate Elevated sedimentation rate Elevated C-reactive protein (CRP) documented in this encounter [facility] [place] [facility]* Diagnosis 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 Other vitamin B12 deficiency anemia Obstructive sleep apnea syndrome Obstructive sleep apnea (adult) (pediatric) Chronic fatigue and malaise Chronic fatigue syndrome High total serum IgM JOSE RAFAEL (obstructive sleep apnea) Obstructive sleep apnea (adult) (pediatric) Somnolence, daytime Hypersomnia, unspecified documented [facility] this encounter [facility] [place] [facility]* Diagnosis Elevated sed rate- Primary Elevated sedimentation rate Megaloblastic anemia due to vitamin B12 deficiency Other vitamin B12 deficiency anemia documented in this encounter [facility] [place] [facility]* Diagnosis Other systemic lupus erythematosus with other organ involvement (HCC)- Primary Elevated sed rate Elevated sedimentation rate Fibromyalgia Mylagia and myositis, unspecified CHRISTIAN positive Other and unspecified nonspecific immunological findings Family history of Crohn's disease Family history of other digestive disorders Secondary osteoarthritis of multiple sites Osteoarthrosis involving, or with mention of more than one site, but not specified as generalized, multiple sites Chronic bilateral low back pain with bilateral sciatica Chronic pain of toes of both feet Long-term use of Plaquenil 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-term (current) use of other medications 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-term (current) use of steroids 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 Bilateral hand pain Pain in limb History of vitamin D deficiency Personal history of nutritional deficiency documented [facility] this [facility] [place] [facility]* Diagnosis Elevated sed rate- Primary Elevated sedimentation rate Megaloblastic anemia due to vitamin B12 deficiency Other vitamin B12 deficiency anemia documented in this encounter [facility] note* Diagnosis Other systemic lupus erythematosus with other organ involvement (HCC) 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-term (current) use of other medications documented in this encounter [facility] general Narrative - Reported* Type Description Date Medical History hyperlipidemia Medical History insulin resistance Medical History CMV Surgical History cyst removal pilonidal Surgical History D&C Hospitalization History [facility] Other Reason for referral (narrative)* Diagnostic Procedure Only (Routine) - Pending Review Specialty Diagnoses / Procedures Referred By Nahid t Referred To Contact XR IMAGING Diagnoses Steroid-induced osteoporosis Procedures DXA-FOREARM SKELETON DXA BONE DENSITY STUDY 1/>SITES APPENDICLR Lynne Perera MD [address] [facility] [place] [address] [place] [id number] Referral ID Status Reason Start Date Expiration Date Visits Requested Visits Authorized [id number] Pending Review Auto-Generat ed Referral 02/04/2023 03/05/2024 1 1 [facility] for referral (narrative)* Consultation (Routine) - Authorized Specialty Diagnoses / Procedures Referred By Nahid t Referred To Contact Cardiology Diagnoses Irregular heart rate Essential hypertension Autonomic dysfunction Obstructive sleep apnea syndrome Primary hypertension Procedures Follow Up In Cardiology Michelle Britton, LACE BURN OUT TENDER-RICE FARMER [address] [facility] [address] [place] [address] Aurora Patel MD [address] [facility] [address] [place] [address] Referral ID Status Reason Start Date Expiration Date V isits Requested Visits Authorized [id number] Authorized 06/09/2023 06/08/2024 1 1 * Cardiovascular (Routine) - Pending Review Specialty Diagnoses / Procedures Referred By Contac t Referred To Contact Cardiology Diagnoses Irregular heart rate 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[employer] Michelle Britton APRN-CNP [address] [facility] [address] [place] [address] Referral ID Status Reason Start Date Expiration Date V isits Requested Visits Authorized Pending Review 06/09/2023 06/08/2024 1 1 * CV Imaging (Routine) - Pending Review Specialty Diagnoses / Procedures Referred By Contac t Referred To Contact Cardiology Diagnoses Irregular heart rate Obstructive sleep apnea syndrome Procedures Transthoracic Echo (TTE) Complete MO ECHO TTHRC R-T 2D W/WOM-MODE COMPL SPEC&COLR D Michelle Britton APRN-RICE FARMER [address] [facility] [address] [place] [address] Referral ID Status Reason Start Date Expiration Date Visits Requested Visits Authorized Pending Review Perform Procedure 06/09/2023 06/08/2024 1 1 * Cardiovascular (Routine) - Authorized Specialty Diagnoses / Procedures Referred By Contac t Referred To Contact Diagnoses Irregular heart rate Procedures ECG 12 Lead Michelle Britton APRN-CNP [address] [facility] [address] [place] [address] Referral ID Status Reason Start Date Expiration Date V isits Requested Visits Authorized [id number] Authorized 06/09/2023 06/08/2024 1 1 [facility] Work Phone: Summary Purpose Family History No Family History Records Found Relationship Condition Age at Onset Recorded Date/T michelle father Unknown Malignant neoplasm Unknown Advance Directives No Advanced Directives Records FoundDocuments on File Type Date Recorded Patient Machine Wood 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 Expl 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 ACP-Advance Directive ACP-Power of Air Marshal Latest Code Status on File Code Status Date Activated Date Inactivated Comments Full Code 10/07/2020 8:32 AM Documents on File Type Date Recorded Patient Machine Wood Sander Expl anation Advance Directive(s) 09/13/2015 8:36 AM Advance Directive Response Recorded Date/ Time Advance Directives No September 17, 019 2:40pm Reason for Referral Specialty Diagnoses / Procedures Referred By Contac t Referred To Contact Diagnoses Paroxysmal supraventricular tachycardia PAC (premature atrial contraction) Procedures ECG 12 Lead Lois Holm MD [address] [place] [address] 2, [address] [address] Referral ID Status Reason Start Date Expiration Date V isits Requested Visits Authorized [id number] Authorized 07/13/2023 07/12/2024 1 1 Specialty Diagnoses / Procedures Referred By Contac t Referred To Contact Cardiology Diagnoses Shortness of breath Paroxysmal supraventricular tachycardia PAC (premature atrial contraction) Procedures Follow Up In Cardiology Lois Holm MD [address] [place] [address] 2, [address] [address] Lois Holm MD [address] [place] [address] 2, [address] [address] Referral ID Status Reason Start Date Expiration Date V isits Requested Visits Authorized [id number] Authorized 07/13/2023 07/12/2024 1 1 Specialty Diagnoses / Procedures Referred By Contac t Referred To Contact Diagnoses Obesity, Class III, BMI 40-49.9 (morbid obesity) (HCC) Pre-diabetes Christie Phan MD [address] [place] [address] Referral ID Status Reason Start Date Expiration Date Visits Re quested Visits Authorized [id number] Closed 1 1 Specialty Diagnoses / Procedures Referred By Contac t Referred To Contact Diagnoses Wound healing, delayed Procedures CONSULT TO MEDICAL GENETICS - GENERAL OFFICE/OUTPATIENT [facility] 60-74 MINUTES MEDICAL GENETICS COUNSELING EACH 30 MINUTES Misty Nelson MD [facility] [place] [address] [facility] [place] [address] [place] [id number] Referral ID Status Reason Start Date Expiration Date Visits Requested Visits Authorized [id number] Authorized PCP Requested Referral Auto-Generate d Referral 2 03/10/2023 1 1 Specialty Diagnoses / Procedures Referred By Contac t Referred To Contact Neurology Diagnoses POTS (postural orthostatic tachycardia syndrome) Procedures CONSULT TO NEUROLOGY OFFICE/OUTPATIENT [facility] 60-74 MINUTES Christie Phan MD [address] [place] [address] Referral ID Status Reason Start Date Expiration Date Visits Requested Visits Authorized [id number] Authorized PCP Requested Referral 2 03/12/2023 1 1 Specialty Diagnoses / Procedures Referred By Contac t Referred To Contact Immunology Diagnoses Raised level of immunoglobulins Procedures CONSULT TO IMMUNOLOGY OFFICE/OUTPATIENT [facility] 60-74 MINUTES Christie Phan MD [address] [place] [address] Referral ID Status Reason Start Date Expiration Date V isits Requested Visits Authorized [id number] Closed PCP Requested Referral 03/09/2022 03/09/2023 1 1 Specialty Diagnoses / Procedures Referred By Contac t Referred To Contact [facility] Diagnoses Somnolence, daytime Snoring Procedures HOME SLEEP APNEA TEST (HSAT) SLEEP STD AIRFLOW HRT RATE&O2 SAT EFFORT UNATT Christie Phan MD [address] [place] [address] Neurological [place] [address] [place] [address] Referral ID Status Reason Start Date Expiration Date Visits Requested Visits Authorized [id number] Authorized Auto-Generat ed Referral 2 03/09/2023 1 1 Specialty Diagnoses / Procedures Referred By Contac t Referred To Contact Diagnoses Somnolence, daytime Chronic fatigue and malaise Obesity, unspecified classification, unspecified obesity type, unspecified whether serious comorbidity present Procedures CONSULT TO LIFESTYLE MEDICINE MD OFFICE/OUTPATIENT [facility] 60-74 MINUTES Jose Najera MD [address] [place] [address] [place] [address] Referral ID Status Reason Start Date Expiration Date V isits Requested Visits Authorized [id number] Closed PCP Requested Referral 03/04/2022 03/04/2023 1 1 Specialty Diagnoses / Procedures Referred By Contac t Referred To Contact Diagnoses Somnolence, daytime Snoring Procedures CONSULT TO SLEEP MEDICINE - ADULT OFFICE/OUTPATIENT [facility] 60-74 MINUTES Jose Najera MD [address] [place] [address] [place] [address] Referral ID Status Reason Start Date Expiration Date Visits Requested Visits Authorized [id number] Authorized PCP Requested Referral 03/04/2023 1 1 Medications Administered Section Inactive [...] 11:09 AM EST 1,000 mcg Deltoid, Right Chief Complaint and Reason for Visit Chief Complaint cdiff cdiff Reason for Visit Abdominal pressure C. difficile diarrhea Diarrhea GERD (gastroesophageal reflux disease) Chief Complaint cdiff cdiff Patient here for a 2 week f/u in office Reason for Visit Abdominal pressure C. difficile diarrhea Diarrhea GERD (gastroesophageal reflux disease) Lupus Recurrent Clostridioides difficile diarrhea Additional Source Comments INFORMATION SOURCE (unrecogn ized section and content) DATE CREATED AUTHOR 09/20/2018 [facility] DATE CREATED AUTHOR AUTHOR'S ORGANIZ ATION 09/23/2018 [facility] DATE CREATED AUTHOR AUTHOR'S ORGANIZ ATION 12/10/2018 [facility] DATE CREATED AUTHOR AUTHOR'S ORGANIZ ATION 01/13/2019 [facility] DATE CREATED AUTHOR AUTHOR'S ORGANIZ ATION 06/28/2021 [facility] DATE CREATED AUTHOR AUTHOR'S ORGANIZ ATION 10/01/2022 [facility] DATE CREATED AUTHOR AUTHOR'S ORGANIZ ATION 07/14/2023 [facility] DATE CREATED AUTHOR AUTHOR'S ORGANIZ ATION 10/29/2023 [facility] DATE CREATED AUTHOR AUTHOR'S ORGANIZ ATION 11/15/2023 [facility] Reason for Visit (unrecogniz ed section and content) Status Reason Specialty Diagnoses / Procedures Referre d By Contact Referred To Contact [employer] Reason Comments Pain ongoing generalized pain. Reason [...] HIGH MDM 60-74 MINUTES Jose Najera MD [address] [place] [address] [place] [address] Referral ID Status Reason Start Date Expiration Date V isits Requested Visits Authorized [id number] Closed PCP Requested Referral 03/04/2022 03/04/2023 1 1 Reason Comments High Total serum IgM Anemia Reason Comments Consult Specialty Diagnoses / Procedures Referred By Contac t Referred To Contact Immunology Diagnoses Raised level of immunoglobulins Procedures CONSULT TO IMMUNOLOGY OFFICE/OUTPATIENT NEW HIGH MDM 60-74 MINUTES Christie Phan MD [address] [place] [address] Referral ID Status Reason Start Date Expiration Date V isits Requested Visits Authorized [id number] Closed PCP Requested Referral 03/09/2022 03/09/2023 1 1 Reason Comments Pneumovax Reason Comments Refill Request Reason Comments Appointment Harp Regulator - Other Reason Comments Future Appointment Scheduling questions /concerns Reason Comments PAP Therapy Follow Up Reason Comments PAP Rx Faxed [facility] Josh [place] Reason Comments Anemia 8 week [...] rate Procedures ECG 12 Lead Michelle Britton, L[employer] OUT TENDER-RICE F[employer]ER [address] [facility] [address] [place] [address] Referral ID Status Reason Start Date Expiration Date V isits Requested Visits Authorized [id number] Authorized 06/09/2023 06/08/2024 1 1 Reason Comments New Patient Visit Leg Swelling, test r esults from [facility] Specialty Diagnoses / Procedures Referred By Contac t Referred To Contact Diagnoses Paroxysmal supraventricular tachycardia PAC (premature atrial contraction) Procedures ECG 12 Lead Lois Holm MD [address] [facility] [address] [place] [address] Referral ID Status Reason Start Date Expiration Date V isits Requested Visits Authorized [id number] Authorized 07/13/2023 07/12/2024 1 1 Reason Onset Date Comments SPP Inflammatory Conditions - Medication Refill 07/13/2023 Benlysta Reason Onset Date Comments SPP Inflammatory Conditions - Medication Refill 08/12/2023 Benlysta Reason Onset Date Comments SPP Inflammatory Conditions - Medication Refill 09/13/2023 Benlysta Reason Comments SLE Reason Onset Date Comments SPP Inflammatory Conditions - Medication Refill 10/12/2023 Benlysta Reason Onset Date Comments Refill Request 11/11/2023 Ordered Prescriptions (unrec ognized section and content) [...] or prosecute any alcohol or drug abuse patient.[facility] Center[facility] the event this information is protected by the Federal Confidentiality of Alcohol and Drug Abuse Patient Records regulations: The Federal rules restrict any use of the information to criminally investigate or prosecute any alcohol or drug abuse patient.[facility] CenterIn the event this information is protected by the Federal Confidentiality of Alcohol and Drug Abuse Patient Records regulations: The Federal rules restrict any use of the information to criminally investigate or prosecute any alcohol or drug abuse patient.[facility] CenterIn the event this information is protected by the Federal Confidentiality of Alcohol and Drug Abuse Patient Records regulations: The Federal rules restrict any use of the information to criminally investigate or prosecute any alcohol or drug abuse patient.[facility] CenterIn the event this information is protected by the Federal Confidentiality of Alcohol and Drug Abuse Patient Records regulations: The Federal rules restrict any use of the information to criminally investigate or prosecute any alcohol or drug abuse patient.[facility] CenterIn the event this information is protected by the Federal Confidentiality of Alcohol and Drug Abuse Patient Records regulations: The Federal rules restrict any use of the information to criminally investigate or prosecute any alcohol or drug abuse patient.[facility] CenterIn the event this information is protected by the Federal Confidentiality of Alcohol and Drug Abuse Patient Records regulations: The Federal rules restrict any use of the information to criminally investigate or prosecute any alcohol or drug abuse patient.[facility] CenterIn the event this information is protected by the Federal Confidentiality of Alcohol and Drug Abuse Patient Records regulations: The Federal rules restrict any use of the information to criminally investigate or prosecute any alcohol or drug abuse patient.[facility] CenterIn the event this information is protected by the Federal Confidentiality of Alcohol and Drug Abuse Patient Records regulations: The Federal rules restrict any use of the information to criminally investigate or prosecute any alcohol or drug abuse patient.[facility] CenterIn the event this information is protected by the Federal Confidentiality of Alcohol and Drug Abuse Patient Records regulations: The Federal rules restrict any use of the information to criminally investigate or prosecute any alcohol or drug abuse patient.[facility] CenterIn the event this information is protected by the Federal Confidentiality of Alcohol and Drug Abuse Patient Records regulations: The Federal rules restrict any use of the information to criminally investigate or prosecute any alcohol or drug abuse patient.[facility] CenterIn the event this information is protected by the Federal Confidentiality of Alcohol and Drug Abuse Patient Records regulations: The Federal rules restrict any use of the information to criminally investigate or prosecute any alcohol or drug abuse patient.[facility] CenterIn the event this information is protected by the Federal Confidentiality of Alcohol and Drug Abuse Patient Records regulations: The Federal rules restrict any use of the information to criminally investigate or prosecute any alcohol or drug abuse patient.[facility] CenterIn the event this information is protected by the Federal Confidentiality of Alcohol and Drug Abuse Patient Records regulations: The Federal rules restrict any use of the information to criminally investigate or prosecute any alcohol or drug abuse patient.[facility] CenterIn the event this information is protected by the Federal Confidentiality of Alcohol and Drug Abuse Patient Records regulations: The Federal rules restrict any use of the information to criminally investigate or prosecute any alcohol or drug abuse patient.[facility] CenterIn the event this information is protected by the Federal Confidentiality of Alcohol and Drug Abuse Patient Records regulations: The Federal rules restrict any use of the information to criminally investigate or prosecute any alcohol or drug abuse patient.[facility] CenterIn the event this information is protected by the Federal Confidentiality of Alcohol and Drug Abuse Patient Records regulations: The Federal rules restrict any use of the information to criminally investigate or prosecute any alcohol or drug abuse patient.[facility] CenterIn the event this information is protected by the Federal Confidentiality of Alcohol and Drug Abuse Patient Records regulations: The Federal rules restrict any use of the information to criminally investigate or prosecute any alcohol or drug abuse patient.[facility] CenterIn the event this information is protected by the Federal Confidentiality of Alcohol and Drug Abuse Patient Records regulations: The Federal rules restrict any use of the information to criminally investigate or prosecute any alcohol or drug abuse patient.[facility] CenterIn the event this information is protected by the Federal Confidentiality of Alcohol and Drug Abuse Patient Records regulations: The Federal rules restrict any use of the information to criminally investigate or prosecute any alcohol or drug abuse patient.[facility] CenterIn the event this information is protected by the Federal Confidentiality of Alcohol and Drug Abuse Patient Records regulations: The Federal rules restrict any use of the information to criminally investigate or prosecute any alcohol or drug abuse patient.[facility] CenterIn the event this information is protected by the Federal Confidentiality of Alcohol and Drug Abuse Patient Records regulations: The Federal rules restrict any use of the information to criminally investigate or prosecute any alcohol or drug abuse patient.[facility] CenterIn the event this information is protected by the Federal Confidentiality of Alcohol and Drug Abuse Patient Records regulations: The Federal rules restrict any use of the information to criminally investigate or prosecute any alcohol or drug abuse patient.[facility] CenterIn the event this information is protected by the Federal Confidentiality of Alcohol and Drug Abuse Patient Records regulations: The Federal rules restrict any use of the information to criminally investigate or prosecute any alcohol or drug abuse patient.[facility] CenterIn the event this information is protected by the Federal Confidentiality of Alcohol and Drug Abuse Patient Records regulations: The Federal rules restrict any use of the information to criminally investigate or prosecute any alcohol or drug abuse patient.[facility] CenterIn the event this information is protected by the Federal Confidentiality of Alcohol and Drug Abuse Patient Records regulations: The Federal rules restrict any use of the information to criminally investigate or prosecute any alcohol or drug abuse patient.[facility] CenterIn the event this information is protected by the Federal Confidentiality of Alcohol and Drug Abuse Patient Records regulations: The Federal rules restrict any use of the information to criminally investigate or prosecute any alcohol or drug abuse patient.[facility] CenterIn the event this information is protected by the Federal Confidentiality of Alcohol and Drug Abuse Patient Records regulations: The Federal rules restrict any use of the information to criminally investigate or prosecute any alcohol or drug abuse patient.[facility] CenterIn the event this information is protected by the Federal Confidentiality of Alcohol and Drug Abuse Patient Records regulations: The Federal rules restrict any use of the information to criminally investigate or prosecute any alcohol or drug abuse patient.[facility] CenterIn the event this information is protected by the Federal Confidentiality of Alcohol and Drug Abuse Patient Records regulations: The Federal rules restrict any use of the information to criminally investigate or prosecute any alcohol or drug abuse patient.[facility] CenterIn the event this information is protected by the Federal Confidentiality of Alcohol and Drug Abuse Patient Records regulations: The Federal rules restrict any use of the information to criminally investigate or prosecute any alcohol or drug abuse patient.[facility] CenterIn the event this information is protected by the Federal Confidentiality of Alcohol and Drug Abuse Patient Records regulations: The Federal rules restrict any use of the information to criminally investigate or prosecute any alcohol or drug abuse patient.[facility] CenterIn the event this information is protected by the Federal Confidentiality of Alcohol and Drug Abuse Patient Records regulations: The Federal rules restrict any use of the information to criminally investigate or prosecute any alcohol or drug abuse patient.[facility] CenterIn the event this information is protected by the Federal Confidentiality of Alcohol and Drug Abuse Patient Records regulations: The Federal rules restrict any use of the information to criminally investigate or prosecute any alcohol or drug abuse patient.[facility] CenterIn the event this information is protected by the Federal Confidentiality of Alcohol and Drug Abuse Patient Records regulations: The Federal rules restrict any use of the information to criminally investigate or prosecute any alcohol or drug abuse patient.[facility] CenterIn the event this information is protected by the Federal Confidentiality of Alcohol and Drug Abuse Patient Records regulations: The Federal rules restrict any use of the information to criminally investigate or prosecute any alcohol or drug abuse patient.[facility] CenterIn the event this information is protected by the Federal Confidentiality of Alcohol and Drug Abuse Patient Records regulations: The Federal rules restrict any use of the information to criminally investigate or prosecute any alcohol or drug abuse patient.[facility] CenterIn the event this information is protected by the Federal Confidentiality of Alcohol and Drug Abuse Patient Records regulations: The Federal rules restrict any use of the information to criminally investigate or prosecute any alcohol or drug abuse patient.[facility] CenterIn the event this information is protected by the Federal Confidentiality of Alcohol and Drug Abuse Patient Records regulations: The Federal rules restrict any use of the information to criminally investigate or prosecute any alcohol or drug abuse patient.[facility] CenterIn the event this information is protected by the Federal Confidentiality of Alcohol and Drug Abuse Patient Records regulations: The Federal rules restrict any use of the information to criminally investigate or prosecute any alcohol or drug abuse patient.[facility] CenterIn the event this information is protected by the Federal Confidentiality of Alcohol and Drug Abuse Patient Records regulations: The Federal rules restrict any use of the information to criminally investigate or prosecute any alcohol or drug abuse patient.[facility] CenterIn the event this information is protected by the Federal Confidentiality of Alcohol and Drug Abuse Patient Records regulations: The Federal rules restrict any use of the information to criminally investigate or prosecute any alcohol or drug abuse patient.[facility] CenterIn the event this information is protected by the Federal Confidentiality of Alcohol and Drug Abuse Patient Records regulations: The Federal rules restrict any use of the information to criminally investigate or prosecute any alcohol or drug abuse patient.[facility] CenterIn the event this information is protected by the Federal Confidentiality of Alcohol and Drug Abuse Patient Records regulations: The Federal rules restrict any use of the information to criminally investigate or prosecute any alcohol or drug abuse patient.[facility] CenterIn the event this information is protected by the Federal Confidentiality of Alcohol and Drug Abuse Patient Records regulations: The Federal rules restrict any use of the information to criminally investigate or prosecute any alcohol or drug abuse patient.[facility] CenterIn the event this information is protected by the Federal Confidentiality of Alcohol and Drug Abuse Patient Records regulations: The Federal rules restrict any use of the information to criminally investigate or prosecute any alcohol or drug abuse patient.[facility] CenterIn the event this information is protected by the Federal Confidentiality of Alcohol and Drug Abuse Patient Records regulations: The Federal rules restrict any use of the information to criminally investigate or prosecute any alcohol or drug abuse patient.[facility] CenterIn the event this information is protected by the Federal Confidentiality of Alcohol and Drug Abuse Patient Records regulations: The Federal rules restrict any use of the information to criminally investigate or prosecute any alcohol or drug abuse patient.[facility] CenterIn the event this information is protected by the Federal Confidentiality of Alcohol and Drug Abuse Patient Records regulations: The Federal rules restrict any use of the information to criminally investigate or prosecute any alcohol or drug abuse patient.[facility] CenterIn the event this information is protected by the Federal Confidentiality of Alcohol and Drug Abuse Patient Records regulations: The Federal rules restrict any use of the information to criminally investigate or prosecute any alcohol or drug abuse patient.[facility] CenterIn the event this information is protected by the Federal Confidentiality of Alcohol and Drug Abuse Patient Records regulations: The Federal rules restrict any use of the information to criminally investigate or prosecute any alcohol or drug abuse patient.[facility] CenterIn the event this information is protected by the Federal Confidentiality of Alcohol and Drug Abuse Patient Records regulations: The Federal rules restrict any use of the information to criminally investigate or prosecute any alcohol or drug abuse patient.[facility] CenterIn the event this information is protected by the Federal Confidentiality of Alcohol and Drug Abuse Patient Records regulations: The Federal rules restrict any use of the information to criminally investigate or prosecute any alcohol or drug abuse patient.[facility] CenterIn the event this information is protected by the Federal Confidentiality of Alcohol and Drug Abuse Patient Records regulations: The Federal rules restrict any use of the information to criminally investigate or prosecute any alcohol or drug abuse patient.[facility] CenterIn the event this information is protected by the Federal Confidentiality of Alcohol and Drug Abuse Patient Records regulations: The Federal rules restrict any use of the information to criminally investigate or prosecute any alcohol or drug abuse patient.[facility] CenterIn the event this information is protected by the Federal Confidentiality of Alcohol and Drug Abuse Patient Records regulations: The Federal rules restrict any use of the information to criminally investigate or prosecute any alcohol or drug abuse patient.[facility] CenterIn the event this information is protected by the Federal Confidentiality of Alcohol and Drug Abuse Patient Records regulations: The Federal rules restrict any use of the information to criminally investigate or prosecute any alcohol or drug abuse patient.[facility] CenterIn the event this information is protected by the Federal Confidentiality of Alcohol and Drug Abuse Patient Records regulations: The Federal rules restrict any use of the information to criminally investigate or prosecute any alcohol or drug abuse patient.[facility] CenterIn the event this information is protected by the Federal Confidentiality of Alcohol and Drug Abuse Patient Records regulations: The Federal rules restrict any use of the information to criminally investigate or prosecute any alcohol or drug abuse patient.[facility] CenterIn the event this information is protected by the Federal Confidentiality of Alcohol and Drug Abuse Patient Records regulations: The Federal rules restrict any use of the information to criminally investigate or prosecute any alcohol or drug abuse patient.[facility] CenterIn the event this information is protected by the Federal Confidentiality of Alcohol and Drug Abuse Patient Records regulations: The Federal rules restrict any use of the information to criminally investigate or prosecute any alcohol or drug abuse patient.[facility] CenterIn the event this information is protected by the Federal Confidentiality of Alcohol and Drug Abuse Patient Records regulations: The Federal rules restrict any use of the information to criminally investigate or prosecute any alcohol or drug abuse patient.[facility] CenterIn the event this information is protected by the Federal Confidentiality of Alcohol and Drug Abuse Patient Records regulations: The Federal rules restrict any use of the information to criminally investigate or prosecute any alcohol or drug abuse patient.[facility] CenterIn the event this information is protected by the Federal Confidentiality of Alcohol and Drug Abuse Patient Records regulations: The Federal rules restrict any use of the information to criminally investigate or prosecute any alcohol or drug abuse patient.[facility] CenterIn the event this information is protected by the Federal Confidentiality of Alcohol and Drug Abuse Patient Records regulations: The Federal rules restrict any use of the information to criminally investigate or prosecute any alcohol or drug abuse patient.[facility] CenterIn the event this information is protected by the Federal Confidentiality of Alcohol and Drug Abuse Patient Records regulations: The Federal rules restrict any use of the information to criminally investigate or prosecute any alcohol or drug abuse patient.[facility] CenterIn the event this information is protected by the Federal Confidentiality of Alcohol and Drug Abuse Patient Records regulations: The Federal rules restrict any use of the information to criminally investigate or prosecute any alcohol or drug abuse patient.[facility] CenterIn the event this information is protected by the Federal Confidentiality of Alcohol and Drug Abuse Patient Records regulations: The Federal rules restrict any use of the information to criminally investigate or prosecute any alcohol or drug abuse patient.[facility] CenterIn the event this information is protected by the Federal Confidentiality of Alcohol and Drug Abuse Patient Records regulations: The Federal rules restrict any use of the information to criminally investigate or prosecute any alcohol or drug abuse patient.[facility] CenterIn the event this information is protected by the Federal Confidentiality of Alcohol and Drug Abuse Patient Records regulations: The Federal rules restrict any use of the information to criminally investigate or prosecute any alcohol or drug abuse patient.[facility] CenterIn the event this information is protected by the Federal Confidentiality of Alcohol and Drug Abuse Patient Records regulations: The Federal rules restrict any use of the information to criminally investigate or prosecute any alcohol or drug abuse patient.[facility] CenterIn the event this information is protected by the Federal Confidentiality of Alcohol and Drug Abuse Patient Records regulations: The Federal rules restrict any use of the information to criminally investigate or prosecute any alcohol or drug abuse patient.[facility] CenterIn the event this information is protected by the Federal Confidentiality of Alcohol and Drug Abuse Patient Records regulations: The Federal rules restrict any use of the information to criminally investigate or prosecute any alcohol or drug abuse patient.[facility] CenterIn the event this information is protected by the Federal Confidentiality of Alcohol and Drug Abuse Patient Records regulations: The Federal rules restrict any use of the information to criminally investigate or prosecute any alcohol or drug abuse patient.[facility] CenterIn the event this information is protected by the Federal Confidentiality of Alcohol and Drug Abuse Patient Records regulations: The Federal rules restrict any use of the information to criminally investigate or prosecute any alcohol or drug abuse patient.[facility] CenterIn the event this information is protected by the Federal Confidentiality of Alcohol and Drug Abuse Patient Records regulations: The Federal rules restrict any use of the information to criminally investigate or prosecute any alcohol or drug abuse patient.[facility] CenterIn the event this information is protected by the Federal Confidentiality of Alcohol and Drug Abuse Patient Records regulations: The Federal rules restrict any use of the information to criminally investigate or prosecute any alcohol or drug abuse patient.[facility] CenterIn the event this information is protected by the Federal Confidentiality of Alcohol and Drug Abuse Patient Records regulations: The Federal rules restrict any use of the information to criminally investigate or prosecute any alcohol or drug abuse patient.[facility] CenterIn the event this information is protected by the Federal Confidentiality of Alcohol and Drug Abuse Patient Records regulations: The Federal rules restrict any use of the information to criminally investigate or prosecute any alcohol or drug abuse patient.[facility] CenterIn the event this information is protected by the Federal Confidentiality of Alcohol and Drug Abuse Patient Records regulations: The Federal rules restrict any use of the information to criminally investigate or prosecute any alcohol or drug abuse patient.[facility] Care Teams (unrecognized sec tion and content) Team Status: Active Member Role Status Dates Lui Salomon MD Primary Care Provider Active Team Status: Inactive Member Role Status Dates Lui Salomon MD Primary Care Provider Active Start: September 22, 2023 End: September 22, 2023 Ketty Mcacll MD Attending Provider Active Start: September 22, 2023 End: September 22, 2023 Team Status: Inactive Member Role Status Dates Lui Salomon MD Primary Care Provider Active Start: October 20, 2023 End: October 20, 2023 Mirela Kelsey MD Attending Provider Active Sta rt: October 20, 2023 End: October 20, 2023 Team Status: Inactive Member Role Status Dates Lui Salomon MD Primary Care Provider Active Start: November 04, 2023 End: November 04, 2023 Mirela Kelsey MD Attending Provider Active Sta rt: November 04, 2023 End: November 04, 2023 Community Youth Secretary Relationship Specialty Start Date End Date Gay Enciso, LACE BURN OUT TENDER.RICE FARMER [address] [place] [address] PCP - General Family Practice 10/24/21 Community Youth Secretary Relationship Specialty Start Date End Date Gay Enciso, MAURILIO.RICE FARMER [address] [place] [address] PCP - General Family Medicine 10/24/21 Madelaine Ferris MD [address] [place] [address] Referring Family Medicine 02/12/22 Community Youth Secretary Relationship Specialty Start Date End Date Madelaine Ferris MD [address] [place] [address] PCP - General Family Medicine 02/27/22 Madelaine Ferris MD [address] [place] [address] Referring Family Medicine 02/12/22 Community Youth Secretary Relationship Specialty Start Date End Date Madelaine Ferris MD [address] [place] [place] [address] PCP - General Family Medicine 02/27/22 Madelaine Ferris MD [address] [place] [address] Referring Family Medicine 02/12/22 Community Youth Secretary Relationship Specialty Start Date End Date Madelaine Ferris MD [address] [place] [address] PCP - General Family Medicine 02/27/22 Madelaine Ferris MD [address] [place] [address] Referring Family Medicine 02/12/22 Community Youth Secretary Relationship Specialty Start Date End Date Madelaine Ferris MD [address] [place] [address] PCP - General Family Medicine 02/27/22 Madelaine Ferris MD [address] [place] [place] [address] Referring Family Medicine 02/12/22 Community Youth Secretary Relationship Specialty Start Date End Date Madelaine Ferris MD [address] [place] [address] PCP - General Family Medicine 02/27/22 Madelaine Ferris MD [address] [place] [address] Referring Family Medicine 02/12/22 Community Youth Secretary Relationship Specialty Start Date End Date Madelaine Ferris MD [address] [place] [address] PCP - General Family Medicine 02/27/22 Madelaine Ferris MD [address] [place] [address] Referring Family Medicine 02/12/22 Community Youth Secretary Relationship Specialty Start Date End Date Madelaine Ferris MD [address] [place] [address] PCP - General Family Medicine 02/27/22 Madelaine Ferris MD [address] [place] [address] Referring Family Medicine 02/12/22 Community Youth Secretary Relationship Specialty Start Date End Date Madelaine Ferris MD [address] [place] [address] PCP - General Family Medicine 02/27/22 Madelaine Ferris MD [address] [place] [address] Referring Family Medicine 02/12/22 Community Youth Secretary Relationship Specialty Start Date End Date Madelaine Ferris MD [address] [place] [address] PCP - General Family Medicine 02/27/22 Madelaine Ferris MD [address] [place] [address] Referring Family Medicine 02/12/22 Community Youth Secretary Relationship Specialty Start Date End Date Madelaine Ferris MD [address] [place] [address] PCP - General Family Medicine 02/27/22 Madelaine Ferris MD [address] [place] [address] Referring Family Medicine 02/12/22 Community Youth Secretary Relationship Specialty Start Date End Date Madelaine Ferris MD [address] [place] [address] PCP - General Family Medicine 02/27/22 Madelaine Ferris MD [address] [place] [address] Referring Family Medicine 02/12/22 Community Youth Secretary Relationship Specialty Start Date End Date Madelaine Ferris MD [address] [place] [address] PCP - General Family Medicine 02/27/22 Madelaine Ferris MD [address] [place] [address] Referring Family Medicine 02/12/22 Community Youth Secretary Relationship Specialty Start Date End Date Madelaine Ferris MD [address] [place] [address] PCP - General Family Medicine 02/27/22 Madelaine Ferris MD [address] [place] [address] Referring Family Medicine 02/12/22 Community Youth Secretary Relationship Specialty Start Date End Date Madelaine Ferris MD [address] [place] [address] PCP - General Family Medicine 02/27/22 Madelaine Ferris MD [address] [place] [address] Referring Family Medicine 02/12/22 Community Youth Secretary Relationship Specialty Start Date End Date Madelaine Ferris MD [address] [place] [address] PCP - General Family Medicine 02/27/22 Madelaine Ferris MD [address] [place] [address] Referring Family Medicine 02/12/22 Community Youth Secretary Relationship Specialty Start Date End Date Madelaine Ferris MD [address] [place] [address] PCP - General Family Medicine 02/27/22 Madelaine Ferris MD [address] [place] [address] Referring Family Medicine 02/12/22 Community Youth Secretary Relationship Specialty Start Date End Date Madelaine Ferris MD [address] [place] [address] PCP - General Family Medicine 02/27/22 Madelaine Ferris MD [address] [place] [address] Referring Family Medicine 02/12/22 Community Youth Secretary Relationship Specialty Start Date End Date Madelaine Ferris MD [address] [place] [address] PCP - General Family Medicine 02/27/22 Madelaine Ferris MD [address] [place] [address] Referring Family Medicine 02/12/22 Community Youth Secretary Relationship Specialty Start Date End Date Madelaine Ferris MD [address] [place] [address] PCP - General Family Medicine 02/27/22 Madelaine Ferris MD [address] [place] [address] Referring Family Medicine 02/12/22 Community Youth Secretary Relationship Specialty Start Date End Date Madelaine Ferris MD [address] [place] [address] PCP - General Family Medicine 02/27/22 Madelaine Ferris MD [address] [place] [address] Referring Family Medicine 02/12/22 Community Youth Secretary Relationship Specialty Start Date End Date Madelaine Ferris MD [address] [place] [address] PCP - General Family Medicine 02/27/22 Madelaine Ferris MD [address] [place] [address] Referring Family Medicine 02/12/22 Community Youth Secretary Relationship Specialty Start Date End Date Madelaine Ferris MD PCP - General Family Medicine 02/27/22 Madelaine Ferris MD Referring Family Medicine 02/12/22 Community Youth Secretary Relationship Specialty Start Date End Date Madelaine Ferris MD PCP - General Family Medicine 02/27/22 Madelaine Ferris MD Referring Family Medicine 02/12/22 Community Youth Secretary Relationship Specialty Start Date End Date Madelaine Ferris MD PCP - General Family Medicine 02/27/22 Madelaine Ferris MD Referring Family Medicine 02/12/22 Community Youth Secretary Relationship Specialty Start Date End Date Madelaine Ferris MD PCP - General Family Medicine 02/27/22 Madelaine Ferris MD Referring Family Medicine 02/12/22 Community Youth Secretary Relationship Specialty Start Date End Date Madelaine Ferris MD PCP - General Family Medicine 02/27/22 Madelaine Ferris MD Referring Family Medicine 02/12/22 Community Youth Secretary Relationship Specialty Start Date End Date Madelaine Ferris MD PCP - General Family Medicine 02/27/22 Madelaine Ferris MD Referring Family Medicine 02/12/22 Community Youth Secretary Relationship Specialty Start Date End Date Madelaine Ferris MD PCP - General Family Medicine 02/27/22 Madelaine Ferris MD Referring Family Medicine 02/12/22 Community Youth Secretary Relationship Specialty Start Date End Date Madelaine Ferris MD PCP - General Family Medicine 02/27/22 Madelaine Ferris MD Referring Family Medicine 02/12/22 Community Youth Secretary Relationship Specialty Start Date End Date Madelaine Ferris MD PCP - General Family Medicine 02/27/22 Madelaine Ferris MD Referring Family Medicine 02/12/22 Community Youth Secretary Relationship Specialty Start Date End Date Madelaine Ferris MD PCP - General Family Medicine 02/27/22 Madelaine Ferris MD Referring Family Medicine 02/12/22 Community Youth Secretary Relationship Specialty Start Date End Date Madelaine Ferris MD PCP - General Family Medicine 02/27/22 Madelaine Ferris MD Referring Family Medicine 02/12/22 Community Youth Secretary Relationship Specialty Start Date End Date Madelaine Ferris MD PCP - General Family Medicine 02/27/22 Madelaine Ferris MD Referring Family Medicine 02/12/22 Community Youth Secretary Relationship Specialty Start Date End Date Madelaine Ferris MD PCP - General Family Medicine 02/27/22 Madelaine Ferris MD Referring Family Medicine 02/12/22 Community Youth Secretary Relationship Specialty Start Date End Date Madelaine Ferris MD PCP - General Family Medicine 02/27/22 Madelaine Ferris MD Referring Family Medicine 02/12/22 Community Youth Secretary Relationship Specialty Start Date End Date Madelaine Ferris MD PCP - General Family Medicine 02/27/22 Madelaine Ferris MD Referring Family Medicine 02/12/22 Community Youth Secretary Relationship Specialty Start Date End Date Madelaine Ferris MD PCP - General Family Medicine 02/27/22 Madelaine Ferris MD Referring Family Medicine 02/12/22 Community Youth Secretary Relationship Specialty Start Date End Date Madelaine Ferris MD PCP - General Family Medicine 02/27/22 Madelaine Ferris MD Referring Family Medicine 02/12/22 Community Youth Secretary Relationship Specialty Start Date End Date Madelaine Ferris MD PCP - General Family Medicine 02/27/22 Madelaine Ferris MD Referring Family Medicine 02/12/22 Community Youth Secretary Relationship Specialty Start Date End Date Madelaine Ferris MD PCP - General Family Medicine 02/27/22 Madelaine Ferris MD Referring Family Medicine 02/12/22 Community Youth Secretary Relationship Specialty Start Date End Date Madelaine Ferris MD PCP - General Family Medicine 02/27/22 Madelaine Ferris MD Referring Family Medicine 02/12/22 Community Youth Secretary Relationship Specialty Start Date End Date Madelaine Ferris MD PCP - General Family Medicine 02/27/22 Madelaine Ferris MD Referring Family Medicine 02/12/22 Community Youth Secretary Relationship Specialty Start Date End Date Madelaine Ferris MD PCP - General Family Medicine 02/27/22 Madelaine Ferris MD Referring Family Medicine 02/12/22 Community Youth Secretary Relationship Specialty Start Date End Date Madelaine Ferris MD PCP - General Family Medicine 02/27/22 Madelaine Ferris MD Referring Family Medicine 02/12/22 Community Youth Secretary Relationship Specialty Start Date End Date Madelaine Ferris MD PCP - General Family Medicine 02/27/22 Madelaine Ferris MD Referring Family Medicine 02/12/22 Community Youth Secretary Relationship Specialty Start Date End Date Madelaine Ferris MD PCP - General Family Medicine 02/27/22 Madelaine Ferris MD Referring Family Medicine 02/12/22 Community Youth Secretary Relationship Specialty Start Date End Date Madelaine Ferris MD PCP - General Family Medicine 02/27/22 Madelaine Ferris MD Referring Family Medicine 02/12/22 Community Youth Secretary Relationship Specialty Start Date End Date Charles MitchellDO [address] [place] [id number] PCP - General 10/22/18 Michelle Britton, LACE BURN OUT TENDER-RICE FARMER [address] [address] Nurse Practitioner Cardiology 06/08/23 Community Youth Secretary Relationship Specialty Start Date End Date Gay Enciso LACE BURN OUT TENDER-RICE FARMER [address] [place] [address] PCP - General 07/13/23 Michelle Britton, LACE BURN OUT TENDER-RICE FARMER [address] [facility] [address] [place] [address] Nurse Practitioner Cardiology 06/08/23 Aurora Patel MD [address] [place] [address] Consulting Physician Cardiology 06/23/23 Community Youth Secretary Relationship Specialty Start Date End Date Madelaine Ferris MD PCP - General Family Medicine 02/27/22 Madelaine Ferris MD Referring Family Medicine 02/12/22 Community Youth Secretary Relationship Specialty Start Date End Date Madelaine Ferris MD PCP - General Family Medicine 02/27/22 Madelaine Ferris MD Referring Family Medicine 02/12/22 Team Status: Active Member Role Status Dates Lui Salomon MD Primary Care Provider Active Start: July 28, 2023 Virgil Green MD Attending Provider Active S tart: July 28, 2023 Community Youth Secretary Relationship Specialty Start Date End Date [...] 1,000 mcg, INTRAMUSCULAR, ONCE, 1 dose, On Delmi 08/05/23 at 1130 Given 08/05/2023 11:30 AM EDT 1,000 mcg Deltoid, Right Inactive Administered Medications - up to 3 most recent administrations Medication Order MAR Action Action Date Dose Rate Site cyanocobalamin 1,000 mcg injection 1,000 mcg, INTRAMUSCULAR, ONCE, 1 dose, On 08/31/23 at 1030 Given 08/31/2023 10:30 AM EDT 1,000 mcg Deltoid, Right Goals (unrecognized section and content) Goals may be documented in a n alternate section FOR RECORDS PERTAINING TO PATIENTS WHO ARE [...] BE BASED ON THE PRIMARY CLINICAL RECORDS. [employer] provides no warranty or guarantee of the accuracy or completeness of information in this document.
== END 2023-11-15 21:18 | disposition home or self-care (01) ==
LOC: LAB 21:17
PROVIDERS: PCP Nurse Practitioner Family; Visit Provider Obstetrics & Gynecology
DX: N64.52 Nipple discharge (principal)
CPT/HCPCS: 87070; 87150; 87186

== ENCOUNTER 2023-11-18 13:57 | Outpatient (OUT) | payer OTHER, SELFPAY ==
--- NOTE | 2023-11-18 | US_ITS ---
The [address] [address] Patient Name: JONES HALEY MRN: [id number] date: 1980 Sex: F Assigned Patient Location: Current Patient Location: US Accession/Order Number: [id number] Exam Date: 11/18/2023 14:00 Report Date: 11/18/2023 16:39 At the request of: KATY PRESCOTT Procedure: US pelvis w/ transvaginal EXAMINATION: US pelvis w/ transvaginal HISTORY: IRREGULAR PERIODS/MENSTRUAL CYCLES COMPARISON: No relevant comparison available. FINDINGS: Transabdominal and transvaginal images The uterus is normal in size and contour measuring 8.6 x 4.7 x 6.6 cm. Identified in the posterior myometrium is a focal 1.5 x 1.3 x 2 cm heterogeneous mass with calcifications The endometrium measures 11 mm, normal. The right ovary is normal measuring 3.1 x 1.8 x 1.9 cm. Normal color Doppler flow The left ovary is normal measuring 2.8 x 2.7 x 2.0 cm. Normal color Doppler flow No ascites US/US pelvis w/ transvaginal IMPRESSION: 2 cm posterior myometrial mass, a fibroid is favored Electronically authenticated by: AURORA SHAIKH Date: 11/18/2023 16:39
[2023-11-18 15:23] LABS: Basophils Absolute Auto 0.1 10^3/uL (0.0-0.1); Basophils Percent Auto 0.6 % (0.2-2.0); Eosinophils Absolute Auto 0.1 10^3/uL (0.0-0.7); Eosinophils Percent Auto 0.6 % (0.9-7.0); Hematocrit 39.3 % (36.0-48.0); Hemoglobin 12.6 g/dL (12.0-16.0); Immature Granulocytes Abs Auto 0.09 10^3/uL (0.00-0.03); Immature Granulocytes Pct Auto 0.7 % (0.0-0.5); Lymphocytes Absolute Auto 1.9 10^3/uL (1.2-3.8); Lymphocytes Percent Auto 15.5 % (20.5-60.0); Mean Corpuscular HGB Conc 32.1 g/dL (29.9-35.2); Mean Corpuscular Hemoglobin 29.6 pg (26.7-34.0); Mean Corpuscular Volume 92.5 fL (81.0-99.0); Monocytes Absolute Auto 0.6 10^3/uL (0.3-0.8); Monocytes Percent Auto 4.9 % (1.7-12.0); Neutrophils Absolute Auto 9.5 10^3/uL (1.4-6.5); Neutrophils Percent Auto 77.7 % (43.0-75.0); Platelet Count 315 10^3/uL (150-450); Red Blood Count 4.25 10^6/uL (4.20-5.40); Red Cell Distribution Width 14.6 % (11.0-15.0); White Blood Count 12.2 10^3/uL (4.0-11.0)
[2023-11-18 15:33] LABS: Estimated Average Glucose 128 mg/dL; Glycohemoglobin A1C 6.1 % (4.5-6.2)
[2023-11-18 15:52] LABS: Free T4 1.13 ng/dL (0.76-1.46)
[2023-11-18 15:57] LABS: Thyroid Stimulating Hormone 0.477 uIU/mL (0.358-3.740)
[2023-11-18 16:03] LABS: HCG Quantitative <1 mIU/mL
[2023-11-19 04:07] LABS: DHEA-Sulfate 15.4 ug/dL (57.3-279.2); Luteinizing Hormone(LH) 24.9 mIU/mL (.); Prolactin 4.7 ng/mL (4.8-33.4)
[2023-11-23 12:10] LABS: DHEA, Serum 25 ng/dL (31-701)
== END 2023-11-18 13:58 | disposition home or self-care (01) ==
LOC: US 13:57
PROVIDERS: PCP Nurse Practitioner Family; Visit Provider Obstetrics & Gynecology
DX: N92.6 Irregular menstruation, unspecified (principal); N85.8 Other specified noninflammatory disorders of uterus
CPT/HCPCS: 36415; 76830; 76856; 82626; 82627; 83001; 83002; 83036; 84146; 84439; 84443; 84702; 85025

== ENCOUNTER 2023-11-24 13:57 | Outpatient (REF) | payer OTHER, SELFPAY ==
[2023-11-24 15:48] LABS: C. Difficile PCR NEGATIVE (NEGATIVE)
== END 2023-11-24 13:58 | disposition home or self-care (01) ==
LOC: LAB 13:57
PROVIDERS: PCP Nurse Practitioner Family; Visit Provider Internal Medicine Infectious Disease
DX: A04.71 Enterocolitis due to Clostridium difficile, recurrent (principal)
CPT/HCPCS: 87493

== ENCOUNTER 2023-12-05 16:04 | Emergency (ER) | payer OTHER, SELFPAY ==
[2023-12-05] VITALS (25 sets, daily range): BP systolic 128; BP diastolic 61; PULSE 61–84; TEMP 36.6; O2SAT 96–98; BMI 42.1
--- NOTE | 2023-12-05 16:18 | ECG_ITS ---
[facility] Test Date: 2023-12-05 Pat Name: JONES HALEY Department: Room: - Gender: Female Hansard Reporter: : 1980 Requested By: SAMSON ENCISO Order Number: [id number] Reading MD: MADELAINE FERRIS Measurements Intervals [place] Rate: 69 P: 51 W[place]: 160 QRS: 23 QRSD: 78 T: 52 QT: 388 QTc: 406 Interpretive Statements 1100 Sinus rhythm 8102 Low QRS voltage in chest leads 9120 atypical ECG Compared to ECG 07/07/2023 23:04:34 No significant changes Electronically Signed On 12-06-2023 5:32:17 EDT by MADELAINE FERRIS
--- NOTE | 2023-12-05 16:20 | ED_ITS ---
HPI HPI - General Adult General Chief complaint: Extremity Problem, Nontraumatic Stated complaint: UPPER EXTREMITY AND RIB PAIN Time Seen by Provider: 12/05/23 16:05 Source: patient Mode of arrival: walk-in History of Present Illness HPI narrative: Patient is a 43-year-old female who presents to the emergency department with multiple complaints. She states her daughter was tested positive for Mariela- Downey virus and has been sick for the last several weeks. She states she was told because her daughter was positive for Mariela-Downey virus that she has mono. She went to urgent care yesterday to be evaluated for herself because she had right ear pressure. She states she was tested for mono with a throat swab but did not receive the results as they are pending. She states she was told that mono could affect her spleen and she is now worried because overnight she developed burning pain across the lower chest and pain in the left shoulder. She denies any mechanism of injury or trauma. She has had no rashes. She has no cough but does feel some tightness in the chest. She is not concerned for . No medications taken prior to arrival. Related Data Home Medications ?Medication ?Instructions ?Recorded ?Confirmed 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 50 mg tablet 150 mg PO DAILY 12/18/22 07/07/23 clindamycin phosphate 1 % topical 1 applic topical DAILY 12/18/22 07/07/23 gel clobetasol 0.05 % shampoo 1 applic topical .4 times weekly 12/18/22 07/07/23 ergocalciferol (vitamin D2) 1,250 1,250 mcg PO .3 times weekly 12/18/22 07/07/23 mcg (50,000 unit) capsule fluocinonide 0.05 % topical 1 applic topical BID 12/18/22 07/07/23 solution folic acid 1 mg tablet 1 mg PO DAILY 12/18/22 07/07/23 hydroxychloroquine 200 mg tablet 200 mg PO BID 12/18/22 07/07/23 metoprolol tartrate 25 mg tablet 100 mg PO Q12H 12/18/22 07/07/23 prednisone 10 mg tablet 10 mg PO DAILY 12/18/22 07/07/23 pregabalin 75 mg capsule 75 mg PO Q8H 12/18/22 07/07/23 tacrolimus 0.1 % topical ointment 1 applic topical Q12H PRN forehead 12/18/22 07/07/23 fidaxomicin 200 mg tablet (Dificid) mg 07/07/23 metoprolol tartrate 50 mg tablet mg 07/07/23 Previous Rx's ?Medication ?Instructions ?Recorded hyoscyamine sulfate 0.125 mg 0.125 mg PO Q6H PRN abdominal pain 06/26/23 tablet (Levsin) #12 tabs magnesium citrate (Citrate of 296 ml PO DAILY constipation #296 06/26/23 Magnesia oral) mL ondansetron 4 mg disintegrating 4 mg PO Q6H PRN nausea and 06/26/23 tablet vomiting #12 tabs metronidazole 500 mg tablet 500 mg PO Q12H 10 days #20 tabs 06/28/23 albuterol sulfate 90 mcg/actuation 2 inh inhalation Q4H PRN shortness 12/05/23 aerosol inhaler of breath or wheezing #8.5 grams rivaroxaban 15 mg tablet (Xarelto) 15 mg PO BID 21 days #42 tabs 12/05/23 Allergies Allergy/AdvReac Type Severity Reaction Status Date / Time Bactrim Allergy Intermediate Uncoded 07/07/23 22:18 Opioid HPI Opioid Management Most Recent Opioid Data: Last Pain Scale 5 06/26/23 21:04 Last MAR Pain Assessment 12/05/23 16:33 Review of Systems ROS Constitutional Denies: fever or chills Ears, nose, mouth, and throat Denies: throat pain or nasal congestion Cardiovascular Reports: chest pain Respiratory Reports: wheezing; Denies: shortness of breath or cough Gastrointestinal Reports: abdominal pain and diarrhea; Denies: nausea or vomiting Musculoskeletal Reports: extremity pain and joint pain; Denies: back pain Integumentary/Breast Denies: rash Hematologic/Lymphatic Denies: easy bruising or easy bleeding PFSH PFSH Social History Smoking status: Current every day smoker Exam Constitutional Vital Signs, click to edit/add: Last Vital Signs Temp 97.9 F 12/05/23 16:08 Pulse 63 12/05/23 16:41 Resp 18 12/05/23 16:08 BP 128/61 12/05/23 16:08 Pulse Ox 96 12/05/23 16:41 O2 Del Method Room Air 12/05/23 16:41 Course Vital Signs Vital signs: Vital Signs Temperature 97.9 F 12/05/23 16:08 Pulse Rate 84 12/05/23 16:08 Respiratory Rate 18 12/05/23 16:08 Blood Pressure 128/61 12/05/23 16:08 Pulse Oximetry 98 12/05/23 16:08 Oxygen Delivery Method Room Air 12/05/23 16:08 Temperature 97.9 F 12/05/23 16:08 Pulse Rate 63 12/05/23 16:41 Respiratory Rate 18 12/05/23 16:08 Blood Pressure 128/61 12/05/23 16:08 Pulse Oximetry 96 12/05/23 16:41 Oxygen Delivery Method Room Air 12/05/23 16:41 Medical Decision Making MDM Narrative Medical decision making narrative: Patient treated with IV fluids, Toradol and albuterol breathing treatment. Laboratory studies reviewed and noted within normal limits although D-dimer is elevated, patient was sent for CT angio of the chest as well as images of the upper abdomen to rule out spleen injury. Her monoscreen is negative. Her vital signs are stable in the ER. Radiologist feels there may be possibly 2 tiny pulmonary emboli bilaterally versus artifact. At this point the patient is hemodynamically stable, in no respiratory distress. She was given results by attending physician and reevaluated. She was given a copy of her images. She should take Xarelto until she is seen by her PCP. We suspect the patient will have a repeat scan with her primary care provider to rule out the pulmonary embolism. She was given home-going instructions. Return to the ER if symptoms change or worsen SHARED APC VISIT, PHYSICIAN ATTESTATION: [id number] I performed a substantive part of the MDM during the patient?s E/M visit. I personally evaluated and examined the patient. I personally made or approved the documented management plan and acknowledge its risk of complications. Medical Records Medical records reviewed: Yes I reviewed the patient's medical records Lab Data Lab results reviewed: Yes I reviewed the patient's lab results Labs: Lab Results 12/05/23 Range/Units 16:28 WBC 11.9 H (4.0-11.0) 10^3/uL RBC 4.40 (4.20-5.40) 10^6/uL Hgb 13.1 (12.0-16.0) g/dL Hct 40.8 (36.0-48.0) % MCV 92.7 (81.0-99.0) fL MCH 29.8 (26.7-34.0) pg MCHC 32.1 (29.9-35.2) g/dL RDW 14.5 (11.0-15.0) % Plt Count 293 (150-450) 10^3/uL MPV 10.3 (9.5-13.5) fL Neut % (Auto) 80.1 H (43.0-75.0) % Lymph % (Auto) 13.1 L (20.5-60.0) % Creek % (Auto) 5.7 (1.7-12.0) % Eos % (Auto) 0.3 L (0.9-7.0) % Baso % (Auto) 0.5 (0.2-2.0) % Neut # (Auto) 9.5 H (1.4-6.5) 10^3/uL Lymph # (Auto) 1.6 (1.2-3.8) 10^3/uL Creek # (Auto) 0.7 (0.3-0.8) 10^3/uL Eos # (Auto) 0.0 (0.0-0.7) 10^3/uL Baso # (Auto) 0.1 (0.0-0.1) 10^3/uL Abs Immat Gran (auto) 0.04 H (0.00-0.03) 10^3/uL Imm/Tot Granulo (auto) 0.3 (0.0-0.5) % PT 10.1 (9.0-11.6) sec INR 0.95 D-Dimer 0.83 H* (<=0.59) mg/L FEU Sodium 141 (136-145) mmol/L Potassium 4.2 (3.5-5.1) mmol/L Chloride 104 (98-107) mmol/L Carbon Dioxide 25.6 (21.0-32.0) mmol/L Anion Gap 15.6 BUN 13.0 (7.0-18.0) mg/dL Creatinine 0.83 (0.55-1.02) mg/dL Est GFR ( Amer) >60 (>=60) Est GFR (Non-Af Amer) >60 (>=60) BUN/Creatinine Ratio 15.7 Glucose 119 H (74-106) mg/dL Lactate 2.0 (0.4-2.0) mmol/L Calcium 9.3 (8.5-10.1) mg/dL Total Bilirubin 0.3 (0.2-1.0) mg/dL AST 15 (15-37) U/L ALT 36 (14-59) U/L Alkaline Phosphatase 66 (46-116) U/L Troponin I High Sens 5.2 (4.0-51.3) pg/mL NT-Pro-B Natriuret Pep 44.0 (<=450.0) pg/mL Total Protein 7.3 (6.4-8.2) g/dL Albumin 3.4 (3.4-5.0) g/dL Globulin 3.9 g/dL Albumin/Globulin Ratio 0.9 Lipase 25.0 (16.0-77.0) U/L Serum HCG, Qual Negative (NEGATIVE) Monoscreen Negative (NEGATIVE) Imaging Data CT scan - chest: Attestation: I have reviewed the pertinent imaging results. Radiologist's impression: ITS Impressions Abdomen CT 12/05/23 17:22 IMPRESSION: 1. Possible tiny bilateral pulmonary emboli that are age indeterminate versus artifact, contrast timing somewhat reduces sensitivity of evaluation. 2. Otherwise, no acute abnormalities in the chest. 3. No acute abnormalities in the abdomen. 4. Mild cardiomegaly. Electronically authenticated by: INGRID CONNER Date: 12/05/2023 19:31 Chest CTA 12/05/23 17:22 IMPRESSION: 1. Possible tiny bilateral pulmonary emboli that are age indeterminate versus artifact, contrast timing somewhat reduces sensitivity of evaluation. 2. Otherwise, no acute abnormalities in the chest. 3. No acute abnormalities in the abdomen. 4. Mild cardiomegaly. Electronically authenticated by: INGRID CONNER Date: 12/05/2023 19:31 ECG Data Attestation: I personally reviewed and interpreted this ECG as follows: Discharge Plan Discharge Stand Alone Forms: Portal Instructions Chief Complaint: Extremity Problem, Nontraumatic Clinical Impression: Chest pain Patient Disposition: Home, Self-Care Time of Disposition Decision: 19:43 Condition: Good Prescriptions / Home Meds: New Xarelto 15 mg tablet 15 mg PO BID 21 Days Qty: 42 0RF Rx Instructions: must administer with a meal/food albuterol sulfate 90 mcg/actuation HFA aerosol inhaler 2 inh inhalation Q4H PRN (Reason: shortness of breath or wheezing) Qty: 8.5 0RF No Action 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 50 mg tablet 150 mg PO DAILY Hold Instructions: while on antibiotics clindamycin phosphate 1 % gel 1 applic TOPICAL DAILY clobetasol 0.05 % shampoo 1 applic TOPICAL .4 times weekly ergocalciferol (vitamin D2) 1,250 mcg (50,000 unit) capsule 1,250 mcg PO .3 times weekly fluocinonide 0.05 % solution 1 applic TOPICAL BID folic acid 1 mg tablet 1 mg PO DAILY hydroxychloroquine 200 mg tablet 200 mg PO BID metoprolol tartrate 25 mg tablet 100 mg PO Q12H prednisone 10 mg tablet 10 mg PO DAILY pregabalin 75 mg capsule 75 mg PO Q8H tacrolimus 0.1 % ointment 1 applic TOPICAL Q12H PRN (Reason: forehead) hyoscyamine sulfate [Levsin] 0.125 mg tablet 0.125 mg PO Q6H PRN (Reason: abdominal pain) Qty: 12 0RF ondansetron 4 mg tablet,disintegrating 4 mg PO Q6H PRN (Reason: nausea and vomiting) Qty: 12 0RF magnesium citrate [Citrate of Magnesia] Solution 296 ml PO DAILY Qty: 296 0RF Rx Instructions: Take half of the bottle with 8 oz of water, take the other half after 1 hour with 8 oz of water metronidazole 500 mg tablet 500 mg PO Q12H 10 Days Qty: 20 0RF Hold Instructions: PCP changed metoprolol tartrate 50 mg tablet Dificid 200 mg tablet Print Language: Tamazight Instructions: Chest Pain (ED), Pulmonary Embolism (ED) Additional Instructions: Please call Dr. Klein's office tomorrow morning to be evaluated, continue the Xarelto until you are seen in the office Referrals: SAMSON ENCISO [Primary Care Provider] - As soon as possible
[2023-12-05] MEDS: 0.9 % SODIUM CHLORIDE 1,000 ML 999 ML IV (16:33)
[2023-12-05] MEDS: KETOROLAC TROMETHAMINE 30 MG/ML VIAL IVP (16:33)
[2023-12-05] MEDS: ALBUTEROL SULFATE 2.5 MG/3 ML VIAL NEB IH (16:40)
[2023-12-05 16:44] LABS: Basophils Absolute Auto 0.1 10^3/uL (0.0-0.1); Basophils Percent Auto 0.5 % (0.2-2.0); Eosinophils Percent Auto 0.3 % (0.9-7.0); Hematocrit 40.8 % (36.0-48.0); Hemoglobin 13.1 g/dL (12.0-16.0); Immature Granulocytes Abs Auto 0.04 10^3/uL (0.00-0.03); Immature Granulocytes Pct Auto 0.3 % (0.0-0.5); Lymphocytes Absolute Auto 1.6 10^3/uL (1.2-3.8); Lymphocytes Percent Auto 13.1 % (20.5-60.0); Mean Corpuscular HGB Conc 32.1 g/dL (29.9-35.2); Mean Corpuscular Hemoglobin 29.8 pg (26.7-34.0); Mean Corpuscular Volume 92.7 fL (81.0-99.0); Mean Platelet Volume 10.3 fL (9.5-13.5); Monocytes Absolute Auto 0.7 10^3/uL (0.3-0.8); Monocytes Percent Auto 5.7 % (1.7-12.0); Neutrophils Absolute Auto 9.5 10^3/uL (1.4-6.5); Neutrophils Percent Auto 80.1 % (43.0-75.0); Platelet Count 293 10^3/uL (150-450); Red Cell Distribution Width 14.5 % (11.0-15.0); White Blood Count 11.9 10^3/uL (4.0-11.0)
[2023-12-05 17:06] LABS: INR 0.95; Prothrombin Time 10.1 sec (9.0-11.6)
[2023-12-05 17:14] LABS: D Dimer 0.83 mg/L FEU (<=0.59)
[2023-12-05 17:15] LABS: Internal Control Within Normal Limits; Mono Screen NEGATIVE (NEGATIVE)
[2023-12-05 17:19] LABS: Alanine Aminotransferase 36 U/L (14-59); Albumin Globulin Ratio 0.9; Albumin Level 3.4 g/dL (3.4-5.0); Alkaline Phosphatase 66 U/L (46-116); Anion Gap 15.6; Aspartate Amino Transferase 15 U/L (15-37); BUN Creatinine Ratio 15.7; Bilirubin Total 0.3 mg/dL (0.2-1.0); Calcium 9.3 mg/dL (8.5-10.1); Carbon Dioxide 25.6 mmol/L (21.0-32.0); Chloride 104 mmol/L (98-107); Estimated GFR (African America >60 (>=60); Estimated GFR (Non-African Ame >60 (>=60); Globulin 3.9 g/dL; Glucose 119 mg/dL (74-106); Potassium 4.2 mmol/L (3.5-5.1); Sodium 141 mmol/L (136-145); Total Protein 7.3 g/dL (6.4-8.2)
--- NOTE | 2023-12-05 17:22 | CT_ITS ---
[address] [address] Patient Name: JONES HALEY MRN: [id number] date: 1980 Sex: F Assigned Patient Location: ER Current Patient Location: Accession/Order Number: [id number] Exam Date: 12/05/2023 17:55 Report Date: 12/05/2023 19:31 At the request of: BHARGAV MURPHY Procedure: CT angio chest EXAM: CT pulmonary angiogram of the chest using 100 mL of IV iodinated contrast. CT scan of the abdomen and pelvis using IV contrast. Dose reduction technique used: Automated exposure control and/or adjustment of the mA and/or kV according to patient size and/or use of iterative reconstruction technique. REASON FOR EXAM: Pulmonary embolism COMPARISON: CT scan dated 06/26/2023 FINDINGS: CHEST: Possible tiny filling defects versus artifact in the right lower lobe lobar artery and subsegmental branches well as a left lower lobe segmental branch. No other pulmonary emboli evident. Contrast timing and respiratory motion artifact prevents adequate evaluation of the subsegmental pulmonary artery branches. No aortic dissection. No pneumothorax. No acute airspace opacities. No pleural effusion. No acute fractures. No concerning pulmonary nodules. No definite lymphadenopathy in the chest. Mild cardiomegaly. ABDOMEN: Small left renal cyst. No free intraperitoneal air where visualized. No free fluid in the abdomen or pelvis where visualized. No dilated or thickened loops of small bowel or colon where visualized. No hydronephrosis or renal calculi. Liver, pancreas, spleen, bilateral kidneys, and bilateral adrenal glands are otherwise unremarkable. No lymphadenopathy in the abdomen or pelvis. Remainder unremarkable. CT/CT angio chest IMPRESSION: 1. Possible tiny bilateral pulmonary emboli that are age indeterminate versus artifact, contrast timing somewhat reduces sensitivity of evaluation. 2. Otherwise, no acute abnormalities in the chest. 3. No acute abnormalities in the abdomen. 4. Mild cardiomegaly. Electronically authenticated by: INGRID CONNER Date: 12/05/2023 19:31
--- NOTE | 2023-12-05 17:22 | CT_ITS ---
[address] [address] Patient Name: JONES HALEY MRN: [id number] date: 1980 Sex: F Assigned Patient Location: ER Current Patient Location: Accession/Order Number: [id number] Exam Date: 12/05/2023 17:55 Report Date: 12/05/2023 19:31 At the request of: BHARGAV MURPHY Procedure: CT abdomen w con EXAM: CT pulmonary angiogram of the chest using 100 mL of IV iodinated contrast. CT scan of the abdomen and pelvis using IV contrast. Dose reduction technique used: Automated exposure control and/or adjustment of the mA and/or kV according to patient size and/or use of iterative reconstruction technique. REASON FOR EXAM: Pulmonary embolism COMPARISON: CT scan dated 06/26/2023 FINDINGS: CHEST: Possible tiny filling defects versus artifact in the right lower lobe lobar artery and subsegmental branches well as a left lower lobe segmental branch. No other pulmonary emboli evident. Contrast timing and respiratory motion artifact prevents adequate evaluation of the subsegmental pulmonary artery branches. No aortic dissection. No pneumothorax. No acute airspace opacities. No pleural effusion. No acute fractures. No concerning pulmonary nodules. No definite lymphadenopathy in the chest. Mild cardiomegaly. ABDOMEN: Small left renal cyst. No free intraperitoneal air where visualized. No free fluid in the abdomen or pelvis where visualized. No dilated or thickened loops of small bowel or colon where visualized. No hydronephrosis or renal calculi. Liver, pancreas, spleen, bilateral kidneys, and bilateral adrenal glands are otherwise unremarkable. No lymphadenopathy in the abdomen or pelvis. Remainder unremarkable. CT/CT abdomen w con IMPRESSION: 1. Possible tiny bilateral pulmonary emboli that are age indeterminate versus artifact, contrast timing somewhat reduces sensitivity of evaluation. 2. Otherwise, no acute abnormalities in the chest. 3. No acute abnormalities in the abdomen. 4. Mild cardiomegaly. Electronically authenticated by: INGRID CONNER Date: 12/05/2023 19:31
[2023-12-05 17:24] LABS: Troponin I High Sensitivity 5.2 pg/mL (4.0-51.3)
[2023-12-05 17:41] LABS: HCG Qualitative NEGATIVE (NEGATIVE); Internal Control Within Normal Limits
[2023-12-05] MEDS: RIVAROXABAN 10 MG TABLET 15 MG PO (19:53)
== END 2023-12-05 20:00 | disposition home or self-care (01) ==
PROVIDERS: Physician Assistant; Emergency Provider Emergency Medicine; PCP Nurse Practitioner Family
DX: R07.9 Chest pain, unspecified (principal); F17.200 Nicotine dependence, unspecified, uncomplicated
CPT/HCPCS: 36415; 71275; 74160; 80053; 83605; 83690; 83880; 84484; 84703; 85025; 85378; 85610; 86308; 93005; 94640; 96361; 96374; 99285; J1885; Q9967

== ENCOUNTER 2023-12-11 09:48 | Outpatient (OUT) | payer OTHER, SELFPAY ==
--- NOTE | 2023-12-11 | CT_ITS ---
[address] [address] Patient Name: JONES HALEY MRN: [id number] date: 1980 Sex: F Assigned Patient Location: CT Current Patient Location: Accession/Order Number: [id number] Exam Date: 12/11/2023 10:10 Report Date: 12/15/2023 09:02 At the request of: MADELAINE FERRIS Procedure: CT angio chest EXAMINATION: CT angio chest HISTORY: I26.99; Pulmonary Embolism ; follow-up left chest pain, left shoulder pain COMPARISON: CTA chest 12/05/2023 TECHNIQUE: Multi-planar CT images were created with IV contrast. Axial, Coronal, and Sagittal images. Dose reduction techniques were achieved by using automated exposure control and/or adjustment of mA and/or kV according to patient size and/or use of iterative reconstruction technique. 3-D reconstruction was performed on a separate workstation. FINDINGS: VASCULATURE: No pulmonary embolism or abnormal opacity. LUNGS: No visible pulmonary disease. PLEURA: No mass, effusion, or pneumothorax. KATHY: No mass or adenopathy. MEDIASTINUM: No mass or adenopathy. CARDIAC: No enlargement, pericardial effusion, or pericardial thickening. AORTA: No aneurysm or dissection. CHEST WALL: No mass or axillary adenopathy. BONES: No bone lesion or fracture. LIMITED ABDOMEN: No suspicious findings. Limited images of the upper abdomen. OTHER: Negative. CT/CT angio chest IMPRESSION: 1. No pulmonary embolism. 2. No acute infiltrates or suspicious findings within the lungs. Electronically authenticated by: SAYDA ANN Date: 12/15/2023 09:02
--- OUTSIDE RECORDS SUMMARY | 2023-12-11 09:53 | XMS_ITS | CCD ---
Author Organization [facility]iniSyva Care Team Providers Care Software Deployment Engineer Name Role Phone VICTOR MANUEL GUZMAN Referring Unavailable Bettina Jiménez Admitting Unavailable Bettina Jiménez Attending Unavailable Lui Salomon Primary Care Unavailable Unavailable Primary Care Provider UnavailJAREN Stuart Referring Unavailable Fernie SOLE MOLDER.TRUE, Gay Primary Care Provider Mirela Kelsey Unavailable Fernie SOLE MOLDER.Gay BISWAS Primary Care Provider Madelaine Ferris MD [...] Unavailable JOSY ., DR BURKETT Attending Unavailable HOCristina ., DR BURKETT Admitting Unavailable GAY ENCISO [...] Attending Unavailable PARMJIT ., MICKY Admitting Unavailable TORRANCE, DR AURORA Pacheco Consulting Unavailable HOY ., [...] Charles Mitchell DO Primary Care Provider Mitali SOLE MOLDER-Michelle BISWAS Unavailable [phone] Unavailable Primary Care Provider UnavailAurora Carney MD Unavailable Fernie SOLE MOLDER-CAR REPOSSESSOR, Gay S Primary Care Provider MICHELLE BRITTON Attending Unavailable CHARLES MITCHELL Primary Care Unavailable MICHELLE BRITTON Referring Unavailable LOIS HOLM Attending Unavailable GAY ENCISO S Primary Care Unavailable Madelaine Ferris MD Primary Care Provider HOY, MADELAINE M Primary Care Unavailable LYNNE [...] Unavailable HOY, MADELAINE M Primary Care Unavailable CARLITOS NIT Referring Unavailable LASTCARLITOST Attending Unavailable HOY, MADELAINE M Primary Care Unavailable ABHYVENUS HOOKEREK Attending Unavailable HOY, MADELAINE M Primary Care Unavailable HOY, MADELAINE M Primary Care Unavailable HOY, MADELAINE M Primary Care Unavailable HOY, MADELAINE M Primary Care Unavailable PATADIA, MISTY Referring Unavailable PATADIA MISTY Attending Unavailable HOY, MADELAINE M Primary Care Unavailable HOY, MADELAINE M Primary Care Unavailable SHARRON ROGERS Attending Unavailab JUAN LUIS Mejía Attending Unavailable BERNABE ENGLISH Attending Unavailable GORDO BARFIELD Attending Unavailable GAY ENCISO Referring Unavailable JUAN LUIS RICHARDSON Attending Unavailable SHARRON ROGERS Attending Unavailab SHARRON Braden Attending Unavailab KATY Yates Attending Unavailable DIGNA PRICE Attending Unavailable SHARRON ROGERS Referring Unavailab SHARRON Braden Referring Unavailab le Allergies Allergy Classification Reported Allergen(s) Allergy Type Date of Onset Reaction(s) Facility Dihydrofolate Reductase Inhibitors (antibiotic) (2 sources) Trimethoprim Drug Allergy Other: See Comments [facility] Doxycycline (2 sources) Doxycycline Drug Allergy Other: See Comments [facility] Latex (2 sources) Latex Substance Allergy Rash [facility] Lincosamides (antibiotic) (2 sources) Clindamycin Drug Allergy Unknown [facility] Opioid Agonists (2 sources) Codeine Drug Allergy Other: See Comments [facility] Sulfamethoxazole / Trimethoprim (3 sources) Sulfamethoxazole / Trimethoprim Drug Allergy Swelling [facility] Sulfonamides (antibiotic) (2 sources) Sulfamethoxazole Drug Allergy Other: See Comments [facility] Work Phone: (20 sources) Codeine; Translations: [CODEINE] Drug Allergy Other: See Comments [facility] (20 sources) Latex; Translations: [LATEX] Drug Allergy Rash [facility] (20 sources) Sulfamethoxazole; Translations: [SULFAMETHOXAZOLE] Drug Allergy GI Upset, Other: See Comments [facility] (20 sources) Clindamycin; Translations: [CLINDAMYCIN] Drug Allergy Unknown [facility] (4 sources) Sulfamethoxazole / Trimethoprim Drug Allergy lymph swelling [employer] Other (20 sources) Doxycycline; Translations: [DOXYCYCLINE] Drug Allergy Other: See Comments, Other, Unknown [facility] (20 sources) Sulfamethoxazole / Trimethoprim; Translations: [SULFAMETHOXAZOLE-T RIMETHOPRIM] Drug Allergy Swelling, Other [facility] (20 sources) Trimethoprim; Translations: [TRIMETHOPRIM] Drug Allergy Other: See Comments [facility] (1 source) Latex Drug allergy (disorder) [facility] Rep[facility] (1 source) Sulfamethoxazole / Trimethoprim Drug Allergy [facility] Repository (3 sources) Sulfamethoxazole Allergy to substance [facility] (2 sources) Latex Propensity to adverse reactions Rash [facility] Medications Current Medications Medication Drug Class(es) Dates [...] mg oral tablet (4 sources) Benzodiazepine Start: 4 take 0.25 mg by mouth once daily Alprazolam Active 0.25 MG PO Daily October 20, 2023 12:00am Start: 06-24-2023 take 1 tablet by kristal once daily as needed ALPRAZolam (Xanax) 0.25 [...] organ involvement (HCC) , 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 HOLD IF ON ANTIBIOTICS OR ILL. 270 tablet 1 11/11/2023 Active Start: 02-16-2023 take 3 tablets by mo [facility] three times daily azaTHIOprine (Imuran) 50 mg tablet Take 3 tablets (150 mg) by mouth 3 times a day. 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 HOLD IF ON ANTIBIOTICS OR ILL. 90 tablet 3 02/16/2023 Active Start: 08-19-2022 End: 11-24-2022 take 2 tablets by mouth once daily at mealtime azaTHIOprine (IMURAN) 50 mg tablet Indications: Other systemic lupus erythematosus with other organ involvement (HCC) , 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 senior care 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 Take 2tab [...] pen) subcutaneously once weekly 12 mL 3 10/05/2023 Active Comment on above: Inject 200mg (1 [...] every week ergocalciferol (Vitamin D-2) 1.25 MG (36759 UT) capsule Take 1 capsule (50,000 Units) [...] 0 03/06/2021 Active take 1 capsule by [facility] every week ergocalciferol (Vitamin D2) 1.25 MG (20038 UT) capsule Take 50,000 Units by mouth [...] 12:00am Start: 10-20-2023 take 1 tablet by kristal th every twelve hours Fidaxomicin (Dificid) 200 mg [...] 1 mg oral tablet (20 sources) Start: 11-28-2023 take 1 tablet by mouth once daily folic acid 1 mg tablet Indications: Vitamin B12 deficiency Take 1 tablet by mouth once daily. 90 tablet 3 11/28/2023 Active Start: 03-18-2022 End: 11-26-2023 take 1 tablet by mouth once daily folic acid 1 mg tablet Indications: Vitamin B12 deficiency Take 1 tablet by mouth once daily. 90 tablet 3 11/26/2023 11/26/2023 Discontinued (Duplicate Entry) Comment on above: Take 1 tablet by kristal th once daily. TAKE 1 TABLET BY KRISTAL TH EVERY DAY hydroxychloroquine sulfate 200 mg oral tablet (20 sources) Antimalarial, Antirheumatic Agent Start: 2023 take 400 mg by mouth once daily [...] 12:00am Start: 04-23-2023 take 2 tablets by [facility] twice daily metoprolol tartrate (Lopressor) 50 mg tablet Take 2 tablets by mouth twice a day. 0 04/23/2023 Active Start: 05-25-2022 take 1 tablet by [facility] twice daily metoprolol tartrate, short acting, (LOPRESSOR) [...] Discontinued Start: 01-19-2022 take 1 capsule by [facility] once daily naltrexone capsule 1 mg TAKE [...] 0.4 mg unde r the tongue. nystatin 316189 unt/ml topical cream (3 sources) Polyene Antifungal [...] 12:00am Start: 07-06-2023 take 1 capsule by mo ut three times daily pregabalin (Lyrica) 100 MG [...] 30 DAYS TAKE 1 CAPSULE BY MO UT 3 TIMES A DAY take 1 capsule by mo ut three times a day 1000 ml sodium [...] tablet by [facility] two times a day. triamcinolone acetonide 0.25 [...] Comment on above: Take 1 capsule by [facility] once daily. famotidine 20 mg oral tablet [...] Comment on above: Take 1 capsule by [facility] twice daily. pantoprazole 40 mg delayed release oral tablet (2 sources) Proton Pump Inhibitor Start: 4 End: 4 take 1 tablet by mouth once daily Pantoprazole Discontinued 40 MG PO Daily 30 September 22, 2023 12:00am October 20, 2023 [...] tablet vitamin b12 1 mg/ml injectable solution (3 sources) Vitamin B12 Start: 11-29-2023 End: 11-29-2023 cyanocobalamin 1,000 mcg injection Start: 10-27-2023 End: 10-27-2023 cyanocobalamin 1,000 mcg inj ection Start: 09-30-2023 End: 09-30-2023 cyanocobalamin 1,000 mcg [...] [Other megaloblastic anemias, not elsewhere classified] Onset: 2 03-04-2022 Episodic Diabetes mellitus without complication (8 [...] sources) Drug therapy status; Translations: [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 senior care 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] Episodic Other aftercare (1 source) Polypharmacy ; Translations: [Other 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 teacher (current) drug therapy] Episodic Other aftercare (1 source) Long-term 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 drug therapy; Translations: [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 teacher 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] 11-11-2023 Episodic Other [...] Diarrhea, unspecified; Translations: [Diarrhea] 09-22-2023 Episodic Other hematologic conditions (20 sources) ESR raised; Translations: [Elevated erythrocyte sedimentation rate] Onset: 1 Episodic Other inflammatory condition of skin (20 [...] [Obesity, Class III, BMI 40-49.9 (morbid obesity) ([facility])] Onset: 3 Chronic Other nutritional; endocrine; and metabolic disorders (9 sources) History of nutritional deficiency; Translations: [Personal [...] sources) Drug therapy finding; Translations: [Other 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 teacher (current) drug therapy] Onset: 03-05-2021 Episodic Other aftercare (20 sources) H/O: high risk medication; Translations: [Other senior care (current) drug therapy] Onset: 06-15-2022 06-15-2022 Episodic Other aftercare (1 source) Other 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 teacher (current) drug therapy; Translations: [OTH GROUP HOME 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 THERAPY] Onset: 03-23-2022 Episodic Other aftercare (20 sources) Long-term 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 systemic steroid; Translations: [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 card tender (current) use of 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] Onset: 02-04-2023 02-04-2023 Episodic Other connective tissue disease (20 sources) Pain in toe; Translations: [Pain in right toe(s)] Onset: 03-05-2021 Episodic Other connective tissue disease (20 sources) Fibromyalgia; Translations: [Fibromyalgia] Onset: 10-24-2021 Episodic Other connective tissue disease (18 sources) Other symptoms and signs involving the [...] Chronic Other nutritional; endocrine; and metabolic disorders (10 sources) Body mass index 30+ - obesity; [...] Name Value Interpretation Reference Range Facility CNNURSEon 11-29-2023 CNNURSE Normal [facility] CBC W Auto Differential pane l (Bld)on 11-24-2023 Basophils (Bld) [#/Vol] 0.06 10*3/uL Normal <0.11 [facility] Comment on above: Order Comment: Speci men Type: BLOOD SPECIMENOrdering Facility: [facility] Address: [address] [place] [address] Performed By: #### 5 7021-8 ####[facility] LABCLIA [id number] [place] [address] Basophils/100 WBC (Bld) 0.6 % Normal [facility] Comment on above: Order Comment: Speci men Type: BLOOD SPECIMENOrdering Facility: [facility] Address: [address] [place] [address] Performed By: #### 5 7021-8 ####[facility] LABCLIA [id number] [place] [address] Differential cell count method Nom (Bld) Auto Normal [facility] Comment on above: Order Comment: Speci men Type: BLOOD SPECIMENOrdering Facility: [facility] Address: [address] [place] [address] Performed By: #### 5 7021-8 ####[facility] LABCLIA [id number] [place] [address] Eosinophils (Bld) [#/Vol] 0.04 10*3/uL Normal <0.46 [facility] Comment on above: Order Comment: Speci men Type: BLOOD SPECIMENOrdering Facility: [facility] Address: [address] [place] [address] Performed By: #### 5 7021-8 ####[facility] LABCLIA [id number] [place] [address] Eosinophils/100 WBC (Bld) 0.4 % Normal [facility] Comment on above: Order Comment: Speci men Type: BLOOD SPECIMENOrdering Facility: [facility] Address: [address] [place] [address] Performed By: #### 5 7021-8 ####[facility] LABCLIA [id number] [place] [address] Erythrocyte distribution width (RBC) [Ratio] 14.8 % Normal 11.5-15.0 [facility] Comment on above: Order Comment: Speci men Type: BLOOD SPECIMENOrdering Facility: [facility] Address: [address] [place] [address] Performed By: #### 5 7021-8 ####[facility] LABCLIA [id number] [place] [address] Hematocrit (Bld) [Volume fraction] 40.6 % Normal 36.0-46.0 [facility] Comment on above: Order Comment: Speci men Type: BLOOD SPECIMENOrdering Facility: [facility] Address: [address] [place] [address] Performed By: #### 5 7021-8 ####[facility] LABCLIA [id number] [place] [address] Hemoglobin (Bld) [Mass/Vol] 13.0 g/dL Normal 11.5-15.5 [facility] Comment on above: Order Comment: Speci men Type: BLOOD SPECIMENOrdering Facility: [facility] Address: [address] [place] [address] Performed By: #### 5 7021-8 ####[facility] LABCLIA [id number] [place] [address] Immature granulocytes (Bld) [#/Vol] 0.05 10*3/uL Normal <0.10 [facility] Comment on above: Order Comment: Speci men Type: BLOOD SPECIMENOrdering Facility: [facility] Address: [address] [place] [address] Performed By: #### 5 7021-8 ####[facility] LABCLIA [id number] [place] [address] Immature granulocytes/100 WBC (Bld) 0.5 % Normal [facility] Comment on above: Order Comment: Speci men Type: BLOOD SPECIMENOrdering Facility: [facility] Address: [address] [place] [address] Performed By: #### 5 7021-8 ####[facility] LABCLIA [id number] [place] [address] Lymphocytes (Bld) [#/Vol] 1.87 10*3/uL Normal 1.00-4.00 [facility] Comment on above: Order Comment: Speci men Type: BLOOD SPECIMENOrdering Facility: [facility] Address: [address] [place] [address] Performed By: #### 5 7021-8 ####[facility] LABCLIA [id number] [place] [address] Lymphocytes/100 WBC (Bld) 17.5 % Normal [facility] Comment on above: Order Comment: Speci men Type: BLOOD SPECIMENOrdering Facility: [facility] Address: [address] [place] [address] Performed By: #### 5 7021-8 ####[facility] LABCLIA [id number] [place] [address] MCH (RBC) [Entitic mass] 29.3 pg Normal 26.0-34.0 [facility] Comment on above: Order Comment: Speci men Type: BLOOD SPECIMENOrdering Facility: [facility] Address: [address] [place] [address] Performed By: #### 5 7021-8 ####[facility] LABIA [id number] [place] [address] MCHC (RBC) [Mass/Vol] 32.0 g/dL Normal 30.5-36.0 [facility] Comment on above: Order Comment: Speci men Type: BLOOD SPECIMENOrdering Facility: [facility] Address: [address] [place] [address] Performed By: #### 5 7021-8 ####[facility] LABCLIA [id number] [place] [address] MCV (RBC) [Entitic vol] 91.4 fL Normal 80.0-100.0 [facility] Comment on above: Order Comment: Speci men Type: BLOOD SPECIMENOrdering Facility: [facility] Address: [address] [place] [address] Performed By: #### 5 7021-8 ####[facility] LABIA [id number] [place] [address] Monocytes (Bld) [#/Vol] 0.39 10*3/uL Normal <0.87 [facility] Comment on above: Order Comment: Speci men Type: BLOOD SPECIMENOrdering Facility: [facility] Address: [address] [place] [address] Performed By: #### 5 7021-8 ####[facility] LABCLIA [id number] [place] [address] Monocytes/100 WBC (Bld) 3.6 % Normal [facility] Comment on above: Order Comment: Speci men Type: BLOOD SPECIMENOrdering Facility: [facility] Address: [address] [place] [address] Performed By: #### 5 7021-8 ####[facility] LABCLIA [id number] [place] [address] Neutrophils (Bld) [#/Vol] 8.28 10*3/uL High 1.45-7.50 [facility] Comment on above: Order Comment: Speci men Type: BLOOD SPECIMENOrdering Facility: [facility] Address: [address] [place] [address] Performed By: #### 5 7021-8 ####[facility] LABCLIA [id number] [place] [address] Neutrophils/100 WBC (Bld) 77.4 % Normal [facility] Comment on above: Order Comment: Speci men Type: BLOOD SPECIMENOrdering Facility: [facility] Address: [address] [place] [address] Performed By: #### 5 7021-8 ####[facility] LABCLIA [id number] [place] [address] Nucleated RBC (Bld) [#/Vol] 10*3/uL Normal <0.01 [facility] Comment on above: Order Comment: Speci men Type: BLOOD SPECIMENOrdering Facility: [facility] Address: [address] [place] [address] Performed By: #### 5 7021-8 ####[facility] LABCLIA [id number] [place] [address] Nucleated RBC/100 WBC (Bld) [Ratio] 0.0 /100 WBC Normal [facility] Comment on above: Order Comment: Speci men Type: BLOOD SPECIMENOrdering Facility: [facility] Address: [address] [place] [address] Performed By: #### 5 7021-8 ####[facility] LABCLIA [id number] [place] [address] Platelet mean volume (Bld) [Entitic vol] 9.6 fL Normal 9.0-12.7 [facility] Comment on above: Order Comment: Speci men Type: BLOOD SPECIMENOrdering Facility: [facility] Address: [address] [place] [address] Performed By: #### 5 7021-8 ####[facility] LABIA [id number] [place] [address] Platelets (Bld) [#/Vol] 271 10*3/uL Normal 150-400 [facility] Comment on above: Order Comment: Speci men Type: BLOOD SPECIMENOrdering Facility: [facility] Address: [address] [place] [address] Performed By: #### 5 7021-8 ####[facility] LABIA [id number] [place] [address] RBC (Bld) [#/Vol] 4.44 10*6/uL Normal 3.90-5.20 [facility] Comment on above: Order Comment: Speci men Type: BLOOD SPECIMENOrdering Facility: [facility] Address: [address] [place] [address] Performed By: #### 5 7021-8 ####[facility] LABIA [id number] [place] [address] WBC (Bld) [#/Vol] 10.69 10*3/uL Normal 3.70-11.00 [facility] Comment on above: Order Comment: Speci men Type: BLOOD SPECIMENOrdering Facility: [facility] Address: [address] [place], [place] [address] Performed By: #### 5 7021-8 ####[facility] LABCLIA [id number] [place] [address] Comprehensive metabolic 2000 panelon 11-24-2023 Albumin [Mass/Vol] 4.1 g/dL Normal 3.9-4.9 [facility] Comment on above: Order Comment: Speci men Type: BLOOD SPECIMENOrdering Facility: [facility] Address: [address] [place], [place] [address] Performed By: #### 2 4323-8 ####[facility] LABCLIA [id number] [place] [address] ALP [Catalytic activity/Vol] 69 U/L Normal 34-123 [facility] Comment on above: Order Comment: Speci men Type: BLOOD SPECIMENOrdering Facility: [facility] Address: [address] [place] [address] Performed By: #### 2 4323-8 ####[facility] LABCLIA [id number] [place] [address] ALT [Catalytic activity/Vol] 24 U/L Normal 7-38 [facility] Comment on above: Order Comment: Speci men Type: BLOOD SPECIMENOrdering Facility: [facility] Address: [address] [place], [place] [address] Performed By: #### 2 4323-8 ####[facility] LABCLIA [id number] [place] [address] Anion gap [Moles/Vol] 9 mmol/L Normal 8-15 [facility] Comment on above: Order Comment: Speci men Type: BLOOD SPECIMENOrdering Facility: [facility] Address: [address] [place], [place] [address] Performed By: #### 2 4323-8 ####[facility] LABCLIA [id number] [place] [address] AST [Catalytic activity/Vol] 13 U/L Normal 13-35 [facility] Comment on above: Order Comment: Speci men Type: BLOOD SPECIMENOrdering Facility: [facility] Address: [address] [place] [address] Performed By: #### 2 4323-8 ####[facility] LABCLIA [id number] [place] [address] Bilirubin [Mass/Vol] 0.2 mg/dL Normal 0.2-1.3 [facility] Comment on above: Order Comment: Speci men Type: BLOOD SPECIMENOrdering Facility: [facility] Address: [address] [place] [address] Performed By: #### 2 4323-8 ####[facility] LABCLIA [id number] [place] [address] Calcium [Mass/Vol] 9.9 mg/dL Normal 8.5-10.2 [facility] Comment on above: Order Comment: Speci men Type: BLOOD SPECIMENOrdering Facility: [facility] Address: [address] [place] [address] Performed By: #### 2 4323-8 ####[facility] LABCLIA [id number] [place] [address] Chloride [Moles/Vol] 104 mmol/L Normal 98-107 [facility] Comment on above: Order Comment: Speci men Type: BLOOD SPECIMENOrdering Facility: [facility] Address: [address] [place] [address] Performed By: #### 2 4323-8 ####[facility] LABCLIA [id number] [place] [address] CO2 [Moles/Vol] 24 mmol/L Normal 22-30 [facility] Comment on above: Order Comment: Speci men Type: BLOOD SPECIMENOrdering Facility: [facility] Address: [address] [place] [address] Performed By: #### 2 4323-8 ####[facility] LABCLIA [id number] [place] [address] Creatinine [Mass/Vol] 0.74 mg/dL Normal 0.58-0.96 [facility] Comment on above: Order Comment: Speci men Type: BLOOD SPECIMENOrdering Facility: [facility] Address: [address] [place] [address] Performed By: #### 2 4323-8 ####[facility] LABCLIA [id number] [place] [address] Creatinine and Glomerular filtration rate.predicted panel (S/P/Bld) 103 mL/min/1.73m??? Normal >=60 [facility] Comment on above: Order Comment: Leolai men Type: BLOOD SPECIMENOrdering Facility: [facility] Address: [address] [place] [address] Result Comment: Erin mated Glomerular Filtration Rate [...] actual GFR. Performed By: #### 2 4323-8 ####[facility] LABIA [id number] [place] [address] Glucose [Mass/Vol] 185 mg/dL High 74-99 [facility] Comment on above: Order Comment: Speci men Type: BLOOD SPECIMENOrdering Facility: [facility] Address: [address] [place] [address] Result Comment: The [place] [employer] (ADA) provides guidance for cutoff [...] Standards of Medical Care in Diabetes 2016, [place] [employer]. Diabetes Care. 2016.39(Suppl 1). Performed By: #### 2 4323-8 ####[facility] LABCLIA [id number] [place] [address] Potassium [Moles/Vol] 4.2 mmol/L Normal 3.7-5.1 [facility] Comment on above: Order Comment: Speci men Type: BLOOD SPECIMENOrdering Facility: [facility] Address: [address] [place] [address] Performed By: #### 2 4323-8 ####[facility] LABCLIA [id number] [place] [address] Protein [Mass/Vol] 7.1 g/dL Normal 6.3-8.0 [facility] Comment on above: Order Comment: Speci men Type: BLOOD SPECIMENOrdering Facility: [facility] Address: [address] [place] [address] Performed By: #### 2 4323-8 ####[facility] LABCLIA [id number] [place] [address] Sodium [Moles/Vol] 137 mmol/L Normal 136-144 [facility] Comment on above: Order Comment: Speci men Type: BLOOD SPECIMENOrdering Facility: [facility] Address: [address] [place] [address] Performed By: #### 2 4323-8 ####[facility] LABCLIA [id number] [place] [address] Urea nitrogen [Mass/Vol] 12 mg/dL Normal 7-21 [facility] Comment on above: Order Comment: Speci men Type: BLOOD SPECIMENOrdering Facility: [facility] Address: [address] [place] [address] Performed By: #### 2 4323-8 ####[facility] LABCLIA [id number] [place] [address] ESR Westergren method (Bld) [Velocity]on 11-24-2023 ESR (Bld) [Velocity] 32 mm/h High 0-20 [facility] Comment on above: Order Comment: Speci men Type: BLOOD SPECIMENOrdering Facility: [facility] Address: [address] [place] [address] Performed By: #### 4 537-7 ####[facility] LABCLIA [id number] [place] [address] [place] Ferritin SerPl-mCncon 2023 Ferritin [Mass/Vol] 31.5 ng/mL Normal 14.7-205.1 [facility] Comment on above: Order Comment: Speci men Type: BLOOD SPECIMENOrdering Facility: [facility] Address: [address] [place] [address] Performed By: #### 2 276-4, 2284-8, 83473-8, 2-9 ####[facility] LABIA [id number] [place] [address] [place] Folate SerPl-mCncon 11-24-19 24 Folate [Mass/Vol] 3.0 ng/mL Low >4.7 [facility] Comment on above: Order Comment: Speci men Type: BLOOD SPECIMENOrdering Facility: [facility] Address: [address] [place] [address] Performed By: #### 2 276-4, 2284-8, 77563-9, 2132-9 ####[facility] LABIA [id number] [place] [address] [place] IgA SerPl-mCncon 11-24-2023 IgA [Mass/Vol] 162 mg/dL Normal 70-400 [facility] Comment on above: Order Comment: Speci men Type: BLOOD SPECIMENOrdering Facility: [facility] Address: [address] [place] [address] Performed By: #### 2 458-8, 2465-3, 2479 ####[facility] LABCLIA [id number] [place] [address] [place] IgE SerPl-aCncon 11-24-2023 IgE Qn 5.8 kU/l Normal <114.0 [facility] Comment on above: Order Comment: Speci men Type: BLOOD SPECIMENOrdering Facility: [facility] Address: [address] [place] [address] Performed By: #### 1 9113-0 ####[facility] LABIA [id number] [place] [address] [place] IgG SerPl-mCncon 11-24-2023 IgG [Mass/Vol] 526 mg/dL Low 700-1600 [facility] Comment on above: Order Comment: Speci men Type: BLOOD SPECIMENOrdering Facility: [facility] Address: [address] [place] [address] Performed By: #### 2 458-8, 2465-3, 8919 ####[facility] LABIA [id number] [place] [address] [place] IgM SerPl-mCncon 11-24-2023 IgM [Mass/Vol] 389 mg/dL High 40-230 [facility] Comment on above: Order Comment: Speci men Type: BLOOD SPECIMENOrdering Facility: [facility] Address: [address] [place] [address] Performed By: #### 2 458-8, 2465-3, 5399 ####[facility] LABIA [id number] [place] [address] [place] Iron and Iron binding capaci ty panelon 11-24-2023 Iron [Mass/Vol] 65 ug/dL Normal 41-186 [facility] Comment on above: Order Comment: Speci men Type: BLOOD SPECIMENOrdering Facility: [facility] Address: [address] [place] [address] Performed By: #### 2 276-4, 2284-8, 68646-3, 9 ####[facility] LABCLIA [id number] [address] [address] [place] Iron binding capacity [Mass/Vol] 373 ug/dL Normal 232-386 [facility] Comment on above: Order Comment: Speci men Type: BLOOD SPECIMENOrdering Facility: [facility] Address: [address] [place], [place] [address] Performed By: #### 2 276-4, 2284-8, 75859-7, 2132-01 ####[facility] LABCLIA [id number] [address] [address] [place] Iron/TIBC [Molar ratio] 17.4 % Normal 15.0-57.0 [facility] Comment on above: Order Comment: Speci men Type: BLOOD SPECIMENOrdering Facility: [facility] Address: [address] [place], [place] [address] Performed By: #### 2 276-4, 2284-8, 04390-5, 2132-01 ####[facility] LABCLIA [id number] [address] [address] [place] Vit B12 [facility] 024 Cobalamin (Vitamin B12) [Mass/Vol] 633 pg/mL Normal 232-1245 [facility] Comment on above: Order Comment: Speci men Type: BLOOD SPECIMENOrdering Facility: [facility] Address: [address] [place] [address] Performed By: #### 2 276-4, 2284-8, 73945-0, 2132-01 ####[facility] LABCLIA [id number] [address] [address] [place] CNNURSEon 10-27-2023 CNNURSE Normal [facility] CNNURSEon 09-30-2023 CNNURSE Normal [facility] CNPNon 09-04-2023 CNPN Normal [facility] 25(OH)D3 SerPl-mCncon 2023 25-hydroxyvitamin D3 [Mass/Vol] 32.2 ng/mL Normal 31.0-80.0 [facility] Comment on above: Order Comment: Speci men Type: BLOOD SPECIMENOrdering Facility: [facility] Address: [address] [place] [address] Result Comment: Clas sification of 25 [place] Vitamin D status:Deficiency/Insufficiency: < or = 30 ng/ml.Sufficiency/Optimal Levels: 31-80 ng/mLToxicity: > 100 ng/mL.Test performed by chemiluminescent immunoassay. Performed By: #### 1 989-3 ####[facility] LABCLIA [id number] [place] [address] [place] CBC W Auto Differential pane l (Bld)on 08-31-2023 Basophils (Bld) [#/Vol] 0.07 10*3/uL Normal <0.11 [facility] Comment on above: Order Comment: Speci men Type: BLOOD SPECIMENOrdering Facility: [facility] Address: [address] [place] [address] Performed By: #### 5 7021-8 ####[facility] LABCLIA [id number] [place] [address] Basophils/100 WBC (Bld) 0.5 % Normal [facility] Comment on above: Order Comment: Speci men Type: BLOOD SPECIMENOrdering Facility: [facility] Address: [address] [place] [address] Performed By: #### 5 7021-8 ####[facility] LABIA [id number] [place] [address] Differential cell count method Nom (Bld) Auto Normal [facility] Comment on above: Order Comment: Speci men Type: BLOOD SPECIMENOrdering Facility: [facility] Address: [address] [place] [address] Performed By: #### 5 7021-8 ####[facility] LABCLIA [id number] [place] [address] Eosinophils (Bld) [#/Vol] 0.20 10*3/uL Normal <0.46 [facility] Comment on above: Order Comment: Speci men Type: BLOOD SPECIMENOrdering Facility: [facility] Address: [address] [place] [address] Performed By: #### 5 7021-8 ####[facility] LABCLIA [id number] [place] [address] Eosinophils/100 WBC (Bld) 1.5 % Normal [facility] Comment on above: Order Comment: Speci men Type: BLOOD SPECIMENOrdering Facility: [facility] Address: [address] [place] [address] Performed By: #### 5 7021-8 ####[facility] LABCLIA [id number] [place] [address] Erythrocyte distribution width (RBC) [Ratio] 14.6 % Normal 11.5-15.0 [facility] Comment on above: Order Comment: Speci men Type: BLOOD SPECIMENOrdering Facility: [facility] Address: [address] [place] [address] Performed By: #### 5 7021-8 ####[facility] LABCLIA [id number] [place] [address] Hematocrit (Bld) [Volume fraction] 41.5 % Normal 36.0-46.0 [facility] Comment on above: Order Comment: Speci men Type: BLOOD SPECIMENOrdering Facility: [facility] Address: [address] [place] [address] Performed By: #### 5 7021-8 ####[facility] LABIA [id number] [place] [address] Hemoglobin (Bld) [Mass/Vol] 13.3 g/dL Normal 11.5-15.5 [facility] Comment on above: Order Comment: Speci men Type: BLOOD SPECIMENOrdering Facility: [facility] Address: [address] [place] [address] Performed By: #### 5 7021-8 ####[facility] LABCLIA [id number] [place] [address] Immature granulocytes (Bld) [#/Vol] 0.14 10*3/uL High <0.10 [facility] Comment on above: Order Comment: Speci men Type: BLOOD SPECIMENOrdering Facility: [facility] Address: [address] [place] [address] Performed By: #### 5 7021-8 ####[facility] LABCLIA [id number] [place] [address] Immature granulocytes/100 WBC (Bld) 1.0 % Normal [facility] Comment on above: Order Comment: Speci men Type: BLOOD SPECIMENOrdering Facility: [facility] Address: [address] [place] [address] Performed By: #### 5 7021-8 ####[facility] LABCLIA [id number] [place] [address] Lymphocytes (Bld) [#/Vol] 2.58 10*3/uL Normal 1.00-4.00 [facility] Comment on above: Order Comment: Speci men Type: BLOOD SPECIMENOrdering Facility: [facility] Address: [address] [place] [address] Performed By: #### 5 7021-8 ####[facility] LABCLIA [id number] [place] [address] Lymphocytes/100 WBC (Bld) 19.2 % Normal [facility] Comment on above: Order Comment: Speci men Type: BLOOD SPECIMENOrdering Facility: [facility] Address: [address] [place] [address] Performed By: #### 5 7021-8 ####[facility] LABCLIA [id number] [place] [address] MCH (RBC) [Entitic mass] 30.0 pg Normal 26.0-34.0 [facility] Comment on above: Order Comment: Speci men Type: BLOOD SPECIMENOrdering Facility: [facility] Address: [address] [place] [address] Performed By: #### 5 7021-8 ####[facility] LABCLIA [id number] [place] [address] MCHC (RBC) [Mass/Vol] 32.0 g/dL Normal 30.5-36.0 [facility] Comment on above: Order Comment: Speci men Type: BLOOD SPECIMENOrdering Facility: [facility] Address: [address] [place] [address] Performed By: #### 5 7021-8 ####[facility] LABCLIA [id number] [place] [address] MCV (RBC) [Entitic vol] 93.7 fL Normal 80.0-100.0 [facility] Comment on above: Order Comment: Speci men Type: BLOOD SPECIMENOrdering Facility: [facility] Address: [address] [place] [address] Performed By: #### 5 7021-8 ####[facility] LABCLIA [id number] [place] [address] Monocytes (Bld) [#/Vol] 0.75 10*3/uL Normal <0.87 [facility] Comment on above: Order Comment: Speci men Type: BLOOD SPECIMENOrdering Facility: [facility] Address: [address] [place] [address] Performed By: #### 5 7021-8 ####[facility] LABCLIA [id number] [place] [address] Monocytes/100 WBC (Bld) 5.6 % Normal [facility] Comment on above: Order Comment: Speci men Type: BLOOD SPECIMENOrdering Facility: [facility] Address: [address] [place], [place] [address] Performed By: #### 5 7021-8 ####[facility] LABCLIA [id number] [place] [address] Neutrophils (Bld) [#/Vol] 9.69 10*3/uL High 1.45-7.50 [facility] Comment on above: Order Comment: Speci men Type: BLOOD SPECIMENOrdering Facility: [facility] Address: [address] [place] [address] Performed By: #### 5 7021-8 ####[facility] LABCLIA [id number] [place] [address] Neutrophils/100 WBC (Bld) 72.2 % Normal [facility] Comment on above: Order Comment: Speci men Type: BLOOD SPECIMENOrdering Facility: [facility] Address: [address] [place] [address] Performed By: #### 5 7021-8 ####[facility] LABCLIA [id number] [place] [address] Nucleated RBC (Bld) [#/Vol] 10*3/uL Normal <0.01 [facility] Comment on above: Order Comment: Speci men Type: BLOOD SPECIMENOrdering Facility: [facility] Address: [address] [place] [address] Performed By: #### 5 7021-8 ####[facility] LABCLIA [id number] [place] [address] Nucleated RBC/100 WBC (Bld) [Ratio] 0.0 /100 WBC Normal [facility] Comment on above: Order Comment: Speci men Type: BLOOD SPECIMENOrdering Facility: [facility] Address: [address] [place] [address] Performed By: #### 5 7021-8 ####[facility] LABIA [id number] [place] [address] Platelet mean volume (Bld) [Entitic vol] 9.6 fL Normal 9.0-12.7 [facility] Comment on above: Order Comment: Speci men Type: BLOOD SPECIMENOrdering Facility: [facility] Address: [address] [place] [address] Performed By: #### 5 7021-8 ####[facility] LABCLIA [id number] [place] [address] Platelets (Bld) [#/Vol] 304 10*3/uL Normal 150-400 [facility] Comment on above: Order Comment: Speci men Type: BLOOD SPECIMENOrdering Facility: [facility] Address: [address] [place] [address] Performed By: #### 5 7021-8 ####[facility] LABCLIA [id number] [place] [address] RBC (Bld) [#/Vol] 4.43 10*6/uL Normal 3.90-5.20 [facility] Comment on above: Order Comment: Speci men Type: BLOOD SPECIMENOrdering Facility: [facility] Address: [address] [place] [address] Performed By: #### 5 7021-8 ####[facility] LABIA [id number] [place] [address] WBC (Bld) [#/Vol] 13.43 10*3/uL High 3.70-11.00 [facility] Comment on above: Order Comment: Speci men Type: BLOOD SPECIMENOrdering Facility: [facility] Address: [address] [place] [address] Performed By: #### 5 7021-8 ####[facility] LABIA [id number] [place] [address] CNNURSEon 08-31-2023 CNNURSE Normal [facility] CRP SerPl-mCncon 08-31-2023 CRP [Mass/Vol] 0.6 mg/dL Normal <0.9 [facility] Comment on above: Order Comment: Speci men Type: BLOOD SPECIMENOrdering Facility: [facility] Address: [address] [place] [id number] Performed By: #### 1 988-5, 26770-3, 2276-4 ####[facility] LABCLIA [id number] [facility] [place] [id number] [place] Comprehensive metabolic 2000 panelon 08-31-2023 Albumin [Mass/Vol] 4.0 g/dL Normal 3.9-4.9 [facility] Comment on above: Order Comment: Speci men Type: BLOOD SPECIMENOrdering Facility: [facility] Address: [address] [place] [address] Performed By: #### 2 4323-8 ####[facility] LABCLIA [id number] [place] [address] ALP [Catalytic activity/Vol] 69 U/L Normal 34-123 [facility] Comment on above: Order Comment: Speci men Type: BLOOD SPECIMENOrdering Facility: [facility] Address: [address] [place] [address] Performed By: #### 2 4323-8 ####[facility] LABCLIA [id number] [place] [address] ALT [Catalytic activity/Vol] 31 U/L Normal 7-38 [facility] Comment on above: Order Comment: Speci men Type: BLOOD SPECIMENOrdering Facility: [facility] Address: [address] [place] [address] Performed By: #### 2 4323-8 ####[facility] LABCLIA [id number] [place] [address] Anion gap [Moles/Vol] 11 mmol/L Normal 9-18 [facility] Comment on above: Order Comment: Speci men Type: BLOOD SPECIMENOrdering Facility: [facility] Address: [address] [place], [place] [address] Performed By: #### 2 4323-8 ####[facility] LABCLIA [id number] [place] [address] AST [Catalytic activity/Vol] 18 U/L Normal 13-35 [facility] Comment on above: Order Comment: Speci men Type: BLOOD SPECIMENOrdering Facility: [facility] Address: [address] [place] [address] Performed By: #### 2 4323-8 ####[facility] LABCLIA [id number] [place] [address] Bilirubin [Mass/Vol] 0.3 mg/dL Normal 0.2-1.3 [facility] Comment on above: Order Comment: Speci men Type: BLOOD SPECIMENOrdering Facility: [facility] Address: [address] [place] [address] Performed By: #### 2 4323-8 ####[facility] LABCLIA [id number] [place] [address] Calcium [Mass/Vol] 10.0 mg/dL Normal 8.5-10.2 [facility] Comment on above: Order Comment: Speci men Type: BLOOD SPECIMENOrdering Facility: [facility] Address: [address] [place] [address] Performed By: #### 2 4323-8 ####[facility] LABCLIA [id number] [place] [address] Chloride [Moles/Vol] 105 mmol/L Normal 97-105 [facility] Comment on above: Order Comment: Speci men Type: BLOOD SPECIMENOrdering Facility: [facility] Address: [address] [place] [address] Performed By: #### 2 4323-8 ####[facility] LABCLIA [id number] [place] [address] CO2 [Moles/Vol] 25 mmol/L Normal 22-30 [facility] Comment on above: Order Comment: Speci men Type: BLOOD SPECIMENOrdering Facility: [facility] Address: [address] [place] [address] Performed By: #### 2 4323-8 ####[facility] LABCLIA [id number] [place] [address] Creatinine [Mass/Vol] 0.80 mg/dL Normal 0.58-0.96 [facility] Comment on above: Order Comment: Speci men Type: BLOOD SPECIMENOrdering Facility: [facility] Address: [address] [place] [address] Performed By: #### 2 4323-8 ####[facility] LABCLIA [id number] [place] [address] Creatinine and Glomerular filtration rate.predicted panel (S/P/Bld) 94 mL/min/1.73m??? Normal >=60 [facility] Comment on above: Order Comment: Speci men Type: BLOOD SPECIMENOrdering Facility: [facility] Address: [address] [place] [address] Result Comment: Erin mated Glomerular Filtration Rate [...] actual GFR. Performed By: #### 2 4323-8 ####[facility] LABCLIA [id number] [place] [address] Glucose [Mass/Vol] 160 mg/dL High 74-99 [facility] Comment on above: Order Comment: Speci men Type: BLOOD SPECIMENOrdering Facility: [facility] Address: [address] [place] [address] Result Comment: The [place] [employer] (ADA) provides guidance for cutoff [...] Standards of Medical Care in Diabetes 2016, [place] [employer]. Diabetes Care. 2016.39(Suppl 1). Performed By: #### 2 4323-8 ####[facility] LABCLIA [id number] [place] [address] Potassium [Moles/Vol] 4.2 mmol/L Normal 3.7-5.1 [facility] Comment on above: Order Comment: Speci men Type: BLOOD SPECIMENOrdering Facility: [facility] Address: [address] [place] [address] Performed By: #### 2 4323-8 ####[facility] LABCLIA [id number] [place] [address] Protein [Mass/Vol] 6.9 g/dL Normal 6.3-8.0 [facility] Comment on above: Order Comment: Speci men Type: BLOOD SPECIMENOrdering Facility: [facility] Address: [address] [place] [address] Performed By: #### 2 4323-8 ####[facility] LABCLIA [id number] [place] [address] Sodium [Moles/Vol] 141 mmol/L Normal 136-144 [facility] Comment on above: Order Comment: Speci men Type: BLOOD SPECIMENOrdering Facility: [facility] Address: [address] [place] [address] Performed By: #### 2 4323-8 ####[facility] LABCLIA [id number] [place] [address] Urea nitrogen [Mass/Vol] 13 mg/dL Normal 7-21 [facility] Comment on above: Order Comment: Speci men Type: BLOOD SPECIMENOrdering Facility: [facility] Address: [address] [place] [address] Performed By: #### 2 4323-8 ####[facility] LABCLIA [id number] [place] [address] ESR Westergren method (Bld) [Velocity]on 08-31-2023 ESR (Bld) [Velocity] 37 mm/h High 0-20 [facility] Comment on above: Order Comment: Speci men Type: BLOOD SPECIMENOrdering Facility: [facility] Address: [address] [place] [address] Performed By: #### 4 537-7 ####[facility] LABIA [id number] [place] [address] [place] Ferritin SerPl-ncon 2023 Ferritin [Mass/Vol] 60.3 ng/mL Normal 14.7-205.1 [facility] Comment on above: Order Comment: Speci men Type: BLOOD SPECIMENOrdering Facility: [facility] Address: [address] [place] [address] Performed By: #### 1 988-5, 78721-6, 2276-4 ####[facility] LABIA [id number] [place] [address] [place] Folate SerPl-mCncon 08-31-19 24 Folate [Mass/Vol] ng/mL Normal >4.7 [facility] Comment on above: Order Comment: Speci men Type: BLOOD SPECIMENOrdering Facility: [facility] Address: [address] [place] [address] Result Comment: A re sult of > 20 ng/mL is not necessarily indicative of a pathologic or treatable condition: it reflects a limitation of the test methodology.Assay reference range: 4.8 to 24.2 ng/mL. Suitable for detection of folate deficiency.Reference:Folate III (Folate III) [package insert V 1.0 [place]]. [facility], [place], [place]: March 2015. Performed By: #### 2 132-9, 2284-8 ####[facility] LABIA [id number] [place] [address] [place] Iron and Iron binding capaci ty panelon 08-31-2023 Iron [Mass/Vol] 87 ug/dL Normal 41-186 [facility] Comment on above: Order Comment: Speci men Type: BLOOD SPECIMENOrdering Facility: [facility] Address: [address] [place] [address] Performed By: #### 1 988-5, 13150-9, 2276-4 ####[facility] LABCLIA [id number] [place] [address] [place] Iron binding capacity [Mass/Vol] 356 ug/dL Normal 232-386 [facility] Comment on above: Order Comment: Speci men Type: BLOOD SPECIMENOrdering Facility: [facility] Address: [address] [place] [address] Performed By: #### 1 988-5, 50985-3, 6-4 ####[facility] LABIA [id number] [place] [address] [place] Iron/TIBC [Molar ratio] 24.4 % Normal 15.0-57.0 [facility] Comment on above: Order Comment: Speci men Type: BLOOD SPECIMENOrdering Facility: [facility] Address: [address] [place] [address] Performed By: #### 1 988-5, 98069-0, 6-4 ####[facility] [id number] [place] [address] [place] Vit B12 SerPl-mCncon 024 Cobalamin (Vitamin B12) [Mass/Vol] 820 pg/mL Normal 232-1245 [facility] Comment on above: Order Comment: Speci men Type: BLOOD SPECIMENOrdering Facility: [facility] Address: [address] [place] [address] Performed By: #### 2 132-9, 2284-8 ####[facility] [id number] [place] [id number] [place] CNNURSEon 08-05-2023 CNNURSE Normal [facility] CNNURSEon 07-13-2023 CNNURSE Normal [facility] ECG 12 Leadon 07-13-2023 ECG revealed normal sinus rhythm [facility] Work Phone: CNPNon 06-12-2023 CNPN Normal [facility] 25(OH)D3 SerPl-mCncon 2023 25-hydroxyvitamin D3 [Mass/Vol] 17.3 ng/mL Low 31.0-80.0 [facility] Comment on above: Order Comment: Speci men Type: BLOOD SPECIMENOrdering Facility: [facility] Address: [address] [place] [address] Result Comment: Clas sification of 25 [place] Vitamin D status:Deficiency/Insufficiency: < or = 30 ng/ml.Sufficiency/Optimal Levels: 31-80 ng/mLToxicity: > 100 ng/mL.Test performed by chemiluminescent immunoassay. Performed By: #### 1 989-3 ####[facility] LABCLIA [id number] [place] [address] [place] CBC panel Auto (Bld)on 06-10 Erythrocyte distribution width (RBC) [Ratio] 14.5 % Normal 11.5-15.0 [facility] Comment on above: Order Comment: Speci men Type: BLOOD SPECIMENOrdering Facility: [facility] Address: [address] [place] [address] Performed By: #### 5 8410-2 ####[facility] LABCLIA [id number] [place] [address] Hematocrit (Bld) [Volume fraction] 43.1 % Normal 36.0-46.0 [facility] Comment on above: Order Comment: Speci men Type: BLOOD SPECIMENOrdering Facility: [facility] Address: [address] [place] [address] Performed By: #### 5 8410-2 ####[facility] LABCLIA [id number] [place] [address] Hemoglobin (Bld) [Mass/Vol] 13.9 g/dL Normal 11.5-15.5 [facility] Comment on above: Order Comment: Speci men Type: BLOOD SPECIMENOrdering Facility: [facility] Address: [address] [place] [address] Performed By: #### 5 8410-2 ####[facility] LABCLIA [id number] [place] [address] MCH (RBC) [Entitic mass] 30.6 pg Normal 26.0-34.0 [facility] Comment on above: Order Comment: Speci men Type: BLOOD SPECIMENOrdering Facility: [facility] Address: [address] [place] [address] Performed By: #### 5 8410-2 ####[facility] LABCLIA [id number] [place] [address] MCHC (RBC) [Mass/Vol] 32.3 g/dL Normal 30.5-36.0 [facility] Comment on above: Order Comment: Speci men Type: BLOOD SPECIMENOrdering Facility: [facility] Address: [address] [place] [address] Performed By: #### 5 8410-2 ####[facility] LABCLIA [id number] [place] [address] MCV (RBC) [Entitic vol] 94.9 fL Normal 80.0-100.0 [facility] Comment on above: Order Comment: Speci men Type: BLOOD SPECIMENOrdering Facility: [facility] Address: [address] [place] [address] Performed By: #### 5 8410-2 ####[facility] LABCLIA [id number] [place] [address] Nucleated RBC (Bld) [#/Vol] 10*3/uL Normal <0.01 [facility] Comment on above: Order Comment: Speci men Type: BLOOD SPECIMENOrdering Facility: [facility] Address: [address] [place] [address] Performed By: #### 5 8410-2 ####[facility] LABCLIA [id number] [place] [address] Platelet mean volume (Bld) [Entitic vol] 9.5 fL Normal 9.0-12.7 [facility] Comment on above: Order Comment: Speci men Type: BLOOD SPECIMENOrdering Facility: [facility] Address: [address] [place] [address] Performed By: #### 5 8410-2 ####[facility] LABCLIA [id number] [place] [address] Platelets (Bld) [#/Vol] 320 10*3/uL Normal 150-400 [facility] Comment on above: Order Comment: Speci men Type: BLOOD SPECIMENOrdering Facility: [facility] Address: [address] [place] [address] Performed By: #### 5 8410-2 ####[facility] LABCLIA [id number] [place] [address] RBC (Bld) [#/Vol] 4.54 10*6/uL Normal 3.90-5.20 [facility] Comment on above: Order Comment: Speci men Type: BLOOD SPECIMENOrdering Facility: [facility] Address: [address] [place] [address] Performed By: #### 5 8410-2 ####[facility] LABCLIA [id number] [place] [address] WBC (Bld) [#/Vol] 15.15 10*3/uL High 3.70-11.00 [facility] Comment on above: Order Comment: Speci men Type: BLOOD SPECIMENOrdering Facility: [facility] Address: [address] [place] [address] Performed By: #### 5 8410-2 ####[facility] LABCLIA [id number] [place] [address] CNNURSEon 06-10-2023 CNNURSE Normal [facility] CNOVSPon 06-10-2023 CNOVSP Normal [facility] CRP SerPl-mCncon 06-10-2023 CRP [Mass/Vol] mg/L Normal <0.9 [facility] Comment on above: Order Comment: Speci men Type: BLOOD SPECIMENOrdering Facility: [facility] Address: [address] [place] [address] Performed By: #### 1 988-5 ####[facility] LABCLIA [id number] [facility] [id number], [place] [id number] [place] [address] Comprehensive metabolic 2000 panelon 06-10-2023 Albumin [Mass/Vol] 4.1 g/dL Normal 3.9-4.9 [facility] Comment on above: Order Comment: Speci men Type: BLOOD SPECIMENOrdering Facility: [facility] Address: [address] [place] [address] Performed By: #### 2 4323-8 ####[facility] LABCLIA [id number] [place] [address] ALP [Catalytic activity/Vol] 72 U/L Normal 34-123 [facility] Comment on above: Order Comment: Speci men Type: BLOOD SPECIMENOrdering Facility: [facility] Address: [address] [place] [address] Performed By: #### 2 4323-8 ####[facility] LABCLIA [id number] [place] [address] ALT [Catalytic activity/Vol] 22 U/L Normal 7-38 [facility] Comment on above: Order Comment: Speci men Type: BLOOD SPECIMENOrdering Facility: [facility] Address: [address] [place] [address] Performed By: #### 2 4323-8 ####[facility] LABCLIA [id number] [place] [address] Anion gap [Moles/Vol] 10 mmol/L Normal 9-18 [facility] Comment on above: Order Comment: Speci men Type: BLOOD SPECIMENOrdering Facility: [facility] Address: [address] [place] [address] Performed By: #### 2 4323-8 ####[facility] LABCLIA [id number] [place] [address] AST [Catalytic activity/Vol] 9 U/L Low 13-35 [facility] Comment on above: Order Comment: Speci men Type: BLOOD SPECIMENOrdering Facility: [facility] Address: [address] [place] [address] Performed By: #### 2 4323-8 ####[facility] LABCLIA [id number] [place] [address] Bilirubin [Mass/Vol] 0.2 mg/dL Normal 0.2-1.3 [facility] Comment on above: Order Comment: Speci men Type: BLOOD SPECIMENOrdering Facility: [facility] Address: [address] [place] [address] Performed By: #### 2 4323-8 ####[facility] LABCLIA [id number] [place] [address] Calcium [Mass/Vol] 9.8 mg/dL Normal 8.5-10.2 [facility] Comment on above: Order Comment: Speci men Type: BLOOD SPECIMENOrdering Facility: [facility] Address: [address] [place] [address] Performed By: #### 2 4323-8 ####[facility] LABCLIA [id number] [place] [address] Chloride [Moles/Vol] 107 mmol/L High 97-105 [facility] Comment on above: Order Comment: Speci men Type: BLOOD SPECIMENOrdering Facility: [facility] Address: [address] [place] [address] Performed By: #### 2 4323-8 ####[facility] LABCLIA [id number] [place] [address] CO2 [Moles/Vol] 24 mmol/L Normal 22-30 [facility] Comment on above: Order Comment: Speci men Type: BLOOD SPECIMENOrdering Facility: [facility] Address: [address] [place] [address] Performed By: #### 2 4323-8 ####[facility] LABCLIA [id number] [place] [address] Creatinine [Mass/Vol] 0.80 mg/dL Normal 0.58-0.96 [facility] Comment on above: Order Comment: Speci men Type: BLOOD SPECIMENOrdering Facility: [facility] Address: [address] [place] [address] Performed By: #### 2 4323-8 ####[facility] LABCLIA [id number] [place] [address] Creatinine and Glomerular filtration rate.predicted panel (S/P/Bld) 94 mL/min/1.73m??? Normal >=60 [facility] Comment on above: Order Comment: Speci men Type: BLOOD SPECIMENOrdering Facility: [facility] Address: [address] [place] [address] Result Comment: Erin mated Glomerular Filtration Rate [...] actual GFR. Performed By: #### 2 4323-8 ####[facility] LABCLIA [id number] [place] [address] Glucose [Mass/Vol] 98 mg/dL Normal 74-99 [facility] Comment on above: Order Comment: Speci men Type: BLOOD SPECIMENOrdering Facility: [facility] Address: [address] [place] [address] Result Comment: The [place] [employer] (ADA) provides guidance for cutoff [...] Standards of Medical Care in Diabetes 2016, [place] [employer]. Diabetes Care. 2016.39(Suppl 1). Performed By: #### 2 4323-8 ####[facility] LABCLIA [id number] [place] [address] Potassium [Moles/Vol] 3.6 mmol/L Low 3.7-5.1 [facility] Comment on above: Order Comment: Speci men Type: BLOOD SPECIMENOrdering Facility: [facility] Address: [address] [place] [address] Performed By: #### 2 4323-8 ####[facility] LABIA [id number] [place] [address] Protein [Mass/Vol] 7.0 g/dL Normal 6.3-8.0 [facility] Comment on above: Order Comment: Speci men Type: BLOOD SPECIMENOrdering Facility: [facility] Address: [address] [place] [address] Performed By: #### 2 4323-8 ####[facility] LABCLIA [id number] [place] [address] Sodium [Moles/Vol] 141 mmol/L Normal 136-144 [facility] Comment on above: Order Comment: Speci men Type: BLOOD SPECIMENOrdering Facility: [facility] Address: [address] [place] [address] Performed By: #### 2 4323-8 ####[facility] LABCLIA [id number] [place] [address] Urea nitrogen [Mass/Vol] 17 mg/dL Normal 7-21 [facility] Comment on above: Order Comment: Speci men Type: BLOOD SPECIMENOrdering Facility: [facility] Address: [address] [place] [address] Performed By: #### 2 4323-8 ####[facility] LABCLIA [id number] [place] [address] ESR Westergren method (Bld) [Velocity]on 06-10-2023 ESR (Bld) [Velocity] 28 mm/h High 0-20 [facility] Comment on above: Order Comment: Speci men Type: BLOOD SPECIMENOrdering Facility: [facility] Address: [address] [place] [address] Performed By: #### 4 537-7 ####[facility] LABCLIA [id number] [place] [address] [place] CBC W Auto Differential pane l (Bld)on 06-03-2023 Basophils (Bld) [#/Vol] 0.05 10*3/uL Normal <0.11 [facility] Comment on above: Order Comment: Speci men Type: BLOOD SPECIMENOrdering Facility: [facility] Address: [address] [place] [address] Performed By: #### 5 7021-8 ####[facility] LABCLIA [id number] [place] [id number] Basophils/100 WBC (Bld) 0.4 % Normal [facility] Comment on above: Order Comment: Speci men Type: BLOOD SPECIMENOrdering Facility: [facility] Address: [address] [place] [address] Performed By: #### 5 7021-8 ####[facility] LABCLIA [id number] [place] [address] Differential cell count method Nom (Bld) Auto Normal [facility] Comment on above: Order Comment: Speci men Type: BLOOD SPECIMENOrdering Facility: [facility] Address: [address] [place] [address] Performed By: #### 5 7021-8 ####[facility] LABCLIA [id number] [place] [address] Eosinophils (Bld) [#/Vol] 0.14 10*3/uL Normal <0.46 [facility] Comment on above: Order Comment: Speci men Type: BLOOD SPECIMENOrdering Facility: [facility] Address: [address] [place] [address] Performed By: #### 5 7021-8 ####[facility] LABCLIA [id number] [place] [address] Eosinophils/100 WBC (Bld) 1.1 % Normal [facility] Comment on above: Order Comment: Speci men Type: BLOOD SPECIMENOrdering Facility: [facility] Address: [address] [place] [address] Performed By: #### 5 7021-8 ####[facility] LABCLIA [id number] [place] [address] Erythrocyte distribution width (RBC) [Ratio] 14.5 % Normal 11.5-15.0 [facility] Comment on above: Order Comment: Speci men Type: BLOOD SPECIMENOrdering Facility: [facility] Address: [address] [place] [address] Performed By: #### 5 7021-8 ####[facility] LABCLIA [id number] [place] [address] Hematocrit (Bld) [Volume fraction] 40.5 % Normal 36.0-46.0 [facility] Comment on above: Order Comment: Speci men Type: BLOOD SPECIMENOrdering Facility: [facility] Address: [address] [place] [address] Performed By: #### 5 7021-8 ####[facility] LABCLIA [id number] [place] [address] Hemoglobin (Bld) [Mass/Vol] 13.1 g/dL Normal 11.5-15.5 [facility] Comment on above: Order Comment: Speci men Type: BLOOD SPECIMENOrdering Facility: [facility] Address: [address] [place] [address] Performed By: #### 5 7021-8 ####[facility] LABCLIA [id number] [place] [address] Immature granulocytes (Bld) [#/Vol] 0.20 10*3/uL High <0.10 [facility] Comment on above: Order Comment: Speci men Type: BLOOD SPECIMENOrdering Facility: [facility] Address: [address] [place] [address] Performed By: #### 5 7021-8 ####[facility] LABCLIA [id number] [place] [address] Immature granulocytes/100 WBC (Bld) 1.6 % Normal [facility] Comment on above: Order Comment: Speci men Type: BLOOD SPECIMENOrdering Facility: [facility] Address: [address] [place] [address] Performed By: #### 5 7021-8 ####[facility] LABCLIA [id number] [place] [address] Lymphocytes (Bld) [#/Vol] 4.13 10*3/uL High 1.00-4.00 [facility] Comment on above: Order Comment: Speci men Type: BLOOD SPECIMENOrdering Facility: [facility] Address: [address] [place] [address] Performed By: #### 5 7021-8 ####[facility] LABCLIA [id number] [place] [address] Lymphocytes/100 WBC (Bld) 32.1 % Normal [facility] Comment on above: Order Comment: Speci men Type: BLOOD SPECIMENOrdering Facility: [facility] Address: [address] [place] [address] Performed By: #### 5 7021-8 ####[facility] LABCLIA [id number] [place] [address] MCH (RBC) [Entitic mass] 30.8 pg Normal 26.0-34.0 [facility] Comment on above: Order Comment: Speci men Type: BLOOD SPECIMENOrdering Facility: [facility] Address: [address] [place] [address] Performed By: #### 5 7021-8 ####[facility] LABCLIA [id number] [place] [address] MCHC (RBC) [Mass/Vol] 32.3 g/dL Normal 30.5-36.0 [facility] Comment on above: Order Comment: Speci men Type: BLOOD SPECIMENOrdering Facility: [facility] Address: [address] [place] [address] Performed By: #### 5 7021-8 ####[facility] LABIA [id number] [place] [address] MCV (RBC) [Entitic vol] 95.1 fL Normal 80.0-100.0 [facility] Comment on above: Order Comment: Speci men Type: BLOOD SPECIMENOrdering Facility: [facility] Address: [address] [place] [address] Performed By: #### 5 7021-8 ####[facility] LABIA [id number] [place] [address] Monocytes (Bld) [#/Vol] 0.79 10*3/uL Normal <0.87 [facility] Comment on above: Order Comment: Speci men Type: BLOOD SPECIMENOrdering Facility: [facility] Address: [address] [place] [address] Performed By: #### 5 7021-8 ####[facility] LABIA [id number] [place] [address] Monocytes/100 WBC (Bld) 6.1 % Normal [facility] Comment on above: Order Comment: Speci men Type: BLOOD SPECIMENOrdering Facility: [facility] Address: [address] [place] [address] Performed By: #### 5 7021-8 ####[facility] LABCLIA [id number] [place] [address] Neutrophils (Bld) [#/Vol] 7.56 10*3/uL High 1.45-7.50 [facility] Comment on above: Order Comment: Speci men Type: BLOOD SPECIMENOrdering Facility: [facility] Address: [address] [place] [address] Performed By: #### 5 7021-8 ####[facility] LABCLIA [id number] [place] [address] Neutrophils/100 WBC (Bld) 58.7 % Normal [facility] Comment on above: Order Comment: Speci men Type: BLOOD SPECIMENOrdering Facility: [facility] Address: [address] [place] [address] Performed By: #### 5 7021-8 ####[facility] LABCLIA [id number] [place] [address] Nucleated RBC (Bld) [#/Vol] 10*3/uL Normal <0.01 [facility] Comment on above: Order Comment: Speci men Type: BLOOD SPECIMENOrdering Facility: [facility] Address: [address] [place] [address] Performed By: #### 5 7021-8 ####[facility] LABCLIA [id number] [place] [address] Nucleated RBC/100 WBC (Bld) [Ratio] 0.0 /100 WBC Normal [facility] Comment on above: Order Comment: Speci men Type: BLOOD SPECIMENOrdering Facility: [facility] Address: [address] [place] [address] Performed By: #### 5 7021-8 ####[facility] LABCLIA [id number] [place] [address] Platelet mean volume (Bld) [Entitic vol] 9.7 fL Normal 9.0-12.7 [facility] Comment on above: Order Comment: Speci men Type: BLOOD SPECIMENOrdering Facility: [facility] Address: [address] [place] [address] Performed By: #### 5 7021-8 ####[facility] LABCLIA [id number] [place] [address] Platelets (Bld) [#/Vol] 261 10*3/uL Normal 150-400 [facility] Comment on above: Order Comment: Speci men Type: BLOOD SPECIMENOrdering Facility: [facility] Address: [address] [place] [address] Performed By: #### 5 7021-8 ####[facility] LABIA [id number] [place] [address] RBC (Bld) [#/Vol] 4.26 10*6/uL Normal 3.90-5.20 [facility] Comment on above: Order Comment: Speci men Type: BLOOD SPECIMENOrdering Facility: [facility] Address: [address] [place] [address] Performed By: #### 5 7021-8 ####[facility] LABIA [id number] [place] [address] WBC (Bld) [#/Vol] 12.87 10*3/uL High 3.70-11.00 [facility] Comment on above: Order Comment: Speci men Type: BLOOD SPECIMENOrdering Facility: [facility] Address: [address] [place] [address] Performed By: #### 5 7021-8 ####[facility] LABIA [id number] [place] [address] Comprehensive metabolic 2000 panelon 06-03-2023 Albumin [Mass/Vol] 4.0 g/dL Normal 3.9-4.9 [facility] Comment on above: Order Comment: Speci men Type: BLOOD SPECIMENOrdering Facility: [facility] Address: [address] [place] [address] Performed By: #### 2 4323-8 ####[facility] LABCLIA [id number] [place] [address] ALP [Catalytic activity/Vol] 73 U/L Normal 34-123 [facility] Comment on above: Order Comment: Speci men Type: BLOOD SPECIMENOrdering Facility: [facility] Address: [address] [place] [address] Performed By: #### 2 4323-8 ####[facility] LABCLIA [id number] [place] [address] ALT [Catalytic activity/Vol] 21 U/L Normal 7-38 [facility] Comment on above: Order Comment: Speci men Type: BLOOD SPECIMENOrdering Facility: [facility] Address: [address] [place] [address] Performed By: #### 2 4323-8 ####[facility] LABCLIA [id number] [place] [address] Anion gap [Moles/Vol] 10 mmol/L Normal 9-18 [facility] Comment on above: Order Comment: Speci men Type: BLOOD SPECIMENOrdering Facility: [facility] Address: [address] [place] [address] Performed By: #### 2 4323-8 ####[facility] LABCLIA [id number] [place] [address] AST [Catalytic activity/Vol] 10 U/L Low 13-35 [facility] Comment on above: Order Comment: Speci men Type: BLOOD SPECIMENOrdering Facility: [facility] Address: [address] [place] [address] Performed By: #### 2 4323-8 ####[facility] LABCLIA [id number] [place] [address] Bilirubin [Mass/Vol] 0.2 mg/dL Normal 0.2-1.3 [facility] Comment on above: Order Comment: Speci men Type: BLOOD SPECIMENOrdering Facility: [facility] Address: [address] [place] [address] Performed By: #### 2 4323-8 ####[facility] LABCLIA [id number] [place] [address] Calcium [Mass/Vol] 9.6 mg/dL Normal 8.5-10.2 [facility] Comment on above: Order Comment: Speci men Type: BLOOD SPECIMENOrdering Facility: [facility] Address: [address] [place] [address] Performed By: #### 2 4323-8 ####[facility] LABCLIA [id number] [place] [address] Chloride [Moles/Vol] 108 mmol/L High 97-105 [facility] Comment on above: Order Comment: Speci men Type: BLOOD SPECIMENOrdering Facility: [facility] Address: [address] [place] [address] Performed By: #### 2 4323-8 ####[facility] LABCLIA [id number] [place] [address] CO2 [Moles/Vol] 24 mmol/L Normal 22-30 [facility] Comment on above: Order Comment: Speci men Type: BLOOD SPECIMENOrdering Facility: [facility] Address: [address] [place] [address] Performed By: #### 2 4323-8 ####[facility] LABCLIA [id number] [place] [address] Creatinine [Mass/Vol] 0.70 mg/dL Normal 0.58-0.96 [facility] Comment on above: Order Comment: Speci men Type: BLOOD SPECIMENOrdering Facility: [facility] Address: [address] [place] [address] Performed By: #### 2 4323-8 ####[facility] LABCLIA [id number] [place] [address] Creatinine and Glomerular filtration rate.predicted panel (S/P/Bld) 111 mL/min/1.73m??? Normal >=60 [facility] Comment on above: Order Comment: Semaj cortés Type: BLOOD SPECIMENOrdering Facility: [facility] Address: [address] [place] [address] Result Comment: Erin mated Glomerular Filtration Rate [...] actual GFR. Performed By: #### 2 4323-8 ####[facility] LABCLIA [id number] [place] [address] Glucose [Mass/Vol] 106 mg/dL High 74-99 [facility] Comment on above: Order Comment: Semaj cortés Type: BLOOD SPECIMENOrdering Facility: [facility] Address: [address] [place] [address] Result Comment: The [place] [employer] (ADA) provides guidance for cutoff [...] Standards of Medical Care in Diabetes 2016, [place] [employer]. Diabetes Care. 2016.39(Suppl 1). Performed By: #### 2 4323-8 ####[facility] LABCLIA [id number] [place] [address] Potassium [Moles/Vol] 4.0 mmol/L Normal 3.7-5.1 [facility] Comment on above: Order Comment: Semaj cortés Type: BLOOD SPECIMENOrdering Facility: [facility] Address: [address] [place] [address] Performed By: #### 2 4323-8 ####[facility] LABCLIA [id number] [place] [address] Protein [Mass/Vol] 6.8 g/dL Normal 6.3-8.0 [facility] Comment on above: Order Comment: Speci men Type: BLOOD SPECIMENOrdering Facility: [facility] Address: [address] [place] [address] Performed By: #### 2 4323-8 ####[facility] LABCLIA [id number] [place] [address] Sodium [Moles/Vol] 142 mmol/L Normal 136-144 [facility] Comment on above: Order Comment: Speci men Type: BLOOD SPECIMENOrdering Facility: [facility] Address: [address] [place] [address] Performed By: #### 2 4323-8 ####[facility] LABCLIA [id number] [place] [address] Urea nitrogen [Mass/Vol] 12 mg/dL Normal 7-21 [facility] Comment on above: Order Comment: Speci men Type: BLOOD SPECIMENOrdering Facility: [facility] Address: [address] [place] [address] Performed By: #### 2 4323-8 ####[facility] LABCLIA [id number] [place] [address] ESR Westergren method (Bld) [Velocity]on 06-03-2023 ESR (Bld) [Velocity] 35 mm/h High 0-20 [facility] Comment on above: Order Comment: Speci men Type: BLOOD SPECIMENOrdering Facility: [facility] Address: [address] [place] [address] Performed By: #### 4 537-7 ####[facility] LABCLIA [id number] [facility] [id number] [address] [place] Ferritin SerPl-mCncon 2023 Ferritin [Mass/Vol] 23.4 ng/mL Normal 14.7-205.1 [facility] Comment on above: Order Comment: Speci men Type: BLOOD SPECIMENOrdering Facility: [facility] Address: [address] [place] [address] Performed By: #### 5 0190-8, 9, 2275-08, 2283-12 ####[facility] LABCLIA [id number] [place] [address] [place] Folate SerPl-mCncon 06-03-19 Folate [Mass/Vol] 8.2 ng/mL Normal >4.7 [facility] Comment on above: Order Comment: Speci men Type: BLOOD SPECIMENOrdering Facility: [facility] Address: [address] [place] [address] Performed By: #### 5 0190-8, 2132-01, 2275-08, 2283-12 ####[facility] LABCLIA [id number] [place] [address] [place] Iron and Iron binding capaci ty panel 06-03-2023 Iron [Mass/Vol] 67 ug/dL Normal 41-186 [facility] Comment on above: Order Comment: Speci men Type: BLOOD SPECIMENOrdering Facility: [facility] Address: [address] [place] [address] Performed By: #### 5 0190-8, 2132-01, 2275-08, 2283-12 ####[facility] LABCLIA [id number] [place] [address] [place] Iron binding capacity [Mass/Vol] 395 ug/dL High 232-386 [facility] Comment on above: Order Comment: Speci men Type: BLOOD SPECIMENOrdering Facility: [facility] Address: [address] [place] [address] Performed By: #### 5 0190-8, 2132-01, 2275-08, 2283-12 ####[facility] LABCLIA [id number] [address] [address] [place] Iron/TIBC [Molar ratio] 17.0 % Normal 15.0-57.0 [facility] Comment on above: Order Comment: Speci men Type: BLOOD SPECIMENOrdering Facility: [facility] Address: [address] [place] [address] Performed By: #### 5 0190-8, 9, 2275-08, 2283-12 ####[facility] LABCLIA [id number] [address] [address] [place] Vit B12 [facility] 0[facility] Cobalamin (Vitamin B12) [Mass/Vol] 428 pg/mL Normal 232-1245 [facility] Comment on above: Order Comment: Speci men Type: BLOOD SPECIMENOrdering Facility: [facility] Address: [address] [place], [place] [address] Performed By: #### 5 0190-8, 9, 2275-08, 2283-12 ####[facility] LABCLIA [id number] [place] [id number] [place] CNNURSEon 05-10-2023 CNNURSE Normal [facility] XR CERVICAL SPINE COMPLETE 4 -5 VIEWSon [...] Not Available CNPNon 04-22-2023 CNPN Normal [facility] CNNURSEon 04-16-2023 CNNURSE Normal [facility] CNOVSPon 04-16-2023 CNOVSP Normal [facility] CBC W Auto Differential pane l (Bld)on 04-09-2023 Basophils (Bld) [#/Vol] 0.05 10*3/uL Normal <0.11 [facility] Comment on above: Order Comment: Speci men Type: BLOOD SPECIMENOrdering Facility: [facility] Address: [address] [place] [address] Performed By: #### 5 7021-8 ####[facility] LABCLIA [id number] [place] [address] Basophils/100 WBC (Bld) 0.5 % Normal [facility] Comment on above: Order Comment: Speci men Type: BLOOD SPECIMENOrdering Facility: [facility] Address: [address] [place] [address] Performed By: #### 5 7021-8 ####[facility] LABCLIA [id number] [place] [address] Differential cell count method Nom (Bld) Auto Normal [facility] Comment on above: Order Comment: Speci men Type: BLOOD SPECIMENOrdering Facility: [facility] Address: [address] [place] [address] Performed By: #### 5 7021-8 ####[facility] LABCLIA [id number] [place] [address] Eosinophils (Bld) [#/Vol] 0.09 10*3/uL Normal <0.46 [facility] Comment on above: Order Comment: Speci men Type: BLOOD SPECIMENOrdering Facility: [facility] Address: [address] [place] [address] Performed By: #### 5 7021-8 ####[facility] LABCLIA [id number] [place] [address] Eosinophils/100 WBC (Bld) 0.9 % Normal [facility] Comment on above: Order Comment: Speci men Type: BLOOD SPECIMENOrdering Facility: [facility] Address: [address] [place] [address] Performed By: #### 5 7021-8 ####[facility] LABCLIA [id number] [place] [address] Erythrocyte distribution width (RBC) [Ratio] 14.8 % Normal 11.5-15.0 [facility] Comment on above: Order Comment: Speci men Type: BLOOD SPECIMENOrdering Facility: [facility] Address: [address] [place] [address] Performed By: #### 5 7021-8 ####[facility] LABCLIA [id number] [place] [address] Hematocrit (Bld) [Volume fraction] 41.1 % Normal 36.0-46.0 [facility] Comment on above: Order Comment: Speci men Type: BLOOD SPECIMENOrdering Facility: [facility] Address: [address] [place] [address] Performed By: #### 5 7021-8 ####[facility] LABCLIA [id number] [place] [address] Hemoglobin (Bld) [Mass/Vol] 13.1 g/dL Normal 11.5-15.5 [facility] Comment on above: Order Comment: Speci men Type: BLOOD SPECIMENOrdering Facility: [facility] Address: [address] [place] [address] Performed By: #### 5 7021-8 ####[facility] LABCLIA [id number] [place] [address] Immature granulocytes (Bld) [#/Vol] 0.05 10*3/uL Normal <0.10 [facility] Comment on above: Order Comment: Speci men Type: BLOOD SPECIMENOrdering Facility: [facility] Address: [address] [place] [address] Performed By: #### 5 7021-8 ####[facility] LABCLIA [id number] [place] [address] Immature granulocytes/100 WBC (Bld) 0.5 % Normal [facility] Comment on above: Order Comment: Speci men Type: BLOOD SPECIMENOrdering Facility: [facility] Address: [address] [place] [address] Performed By: #### 5 7021-8 ####[facility] LABCLIA [id number] [place] [address] Lymphocytes (Bld) [#/Vol] 2.90 10*3/uL Normal 1.00-4.00 [facility] Comment on above: Order Comment: Speci men Type: BLOOD SPECIMENOrdering Facility: [facility] Address: [address] [place] [address] Performed By: #### 5 7021-8 ####[facility] LABCLIA [id number] [place] [address] Lymphocytes/100 WBC (Bld) 28.9 % Normal [facility] Comment on above: Order Comment: Speci men Type: BLOOD SPECIMENOrdering Facility: [facility] Address: [address] [place] [address] Performed By: #### 5 7021-8 ####[facility] LABCLIA [id number] [place] [address] MCH (RBC) [Entitic mass] 30.5 pg Normal 26.0-34.0 [facility] Comment on above: Order Comment: Speci men Type: BLOOD SPECIMENOrdering Facility: [facility] Address: [address] [place] [address] Performed By: #### 5 7021-8 ####[facility] LABCLIA [id number] [place] [address] MCHC (RBC) [Mass/Vol] 31.9 g/dL Normal 30.5-36.0 [facility] Comment on above: Order Comment: Speci men Type: BLOOD SPECIMENOrdering Facility: [facility] Address: [address] [place] [address] Performed By: #### 5 7021-8 ####[facility] LABCLIA [id number] [place] [address] MCV (RBC) [Entitic vol] 95.8 fL Normal 80.0-100.0 [facility] Comment on above: Order Comment: Speci men Type: BLOOD SPECIMENOrdering Facility: [facility] Address: [address] [place] [address] Performed By: #### 5 7021-8 ####[facility] LABCLIA [id number] [place] [address] Monocytes (Bld) [#/Vol] 0.54 10*3/uL Normal <0.87 [facility] Comment on above: Order Comment: Speci men Type: BLOOD SPECIMENOrdering Facility: [facility] Address: [address] [place] [address] Performed By: #### 5 7021-8 ####[facility] LABCLIA [id number] [place] [address] Monocytes/100 WBC (Bld) 5.4 % Normal [facility] Comment on above: Order Comment: Speci men Type: BLOOD SPECIMENOrdering Facility: [facility] Address: [address] [place] [address] Performed By: #### 5 7021-8 ####[facility] LABCLIA [id number] [place] [address] Neutrophils (Bld) [#/Vol] 6.41 10*3/uL Normal 1.45-7.50 [facility] Comment on above: Order Comment: Speci men Type: BLOOD SPECIMENOrdering Facility: [facility] Address: [address] [place] [address] Performed By: #### 5 7021-8 ####[facility] LABCLIA [id number] [place] [address] Neutrophils/100 WBC (Bld) 63.8 % Normal [facility] Comment on above: Order Comment: Speci men Type: BLOOD SPECIMENOrdering Facility: [facility] Address: [address] [place] [address] Performed By: #### 5 7021-8 ####[facility] LABCLIA [id number] [place] [address] Nucleated RBC (Bld) [#/Vol] 10*3/uL Normal <0.01 [facility] Comment on above: Order Comment: Speci men Type: BLOOD SPECIMENOrdering Facility: [facility] Address: [address] [place] [address] Performed By: #### 5 7021-8 ####[facility] LABCLIA [id number] [place] [address] Nucleated RBC/100 WBC (Bld) [Ratio] 0.0 /100 WBC Normal [facility] Comment on above: Order Comment: Speci men Type: BLOOD SPECIMENOrdering Facility: [facility] Address: [address] [place] [address] Performed By: #### 5 7021-8 ####[facility] LABCLIA [id number] [place] [address] Platelet mean volume (Bld) [Entitic vol] 9.4 fL Normal 9.0-12.7 [facility] Comment on above: Order Comment: Speci men Type: BLOOD SPECIMENOrdering Facility: [facility] Address: [address] [place] [address] Performed By: #### 5 7021-8 ####[facility] LABCLIA [id number] [place] [address] Platelets (Bld) [#/Vol] 290 10*3/uL Normal 150-400 [facility] Comment on above: Order Comment: Speci men Type: BLOOD SPECIMENOrdering Facility: [facility] Address: [address] [place] [address] Performed By: #### 5 7021-8 ####[facility] LABCLIA [id number] [place] [address] RBC (Bld) [#/Vol] 4.29 10*6/uL Normal 3.90-5.20 [facility] Comment on above: Order Comment: Speci men Type: BLOOD SPECIMENOrdering Facility: [facility] Address: [address] [place] [address] Performed By: #### 5 7021-8 ####[facility] LABCLIA [id number] [place] [address] WBC (Bld) [#/Vol] 10.04 10*3/uL Normal 3.70-11.00 [facility] Comment on above: Order Comment: Speci men Type: BLOOD SPECIMENOrdering Facility: [facility] Address: [address] [place] [address] Performed By: #### 5 7021-8 ####[facility] LABCLIA [id number] [place] [address] Comprehensive metabolic 2000 panelon 04-09-2023 Albumin [Mass/Vol] 4.1 g/dL Normal 3.9-4.9 [facility] Comment on above: Order Comment: Speci men Type: BLOOD SPECIMENOrdering Facility: [facility] Address: [address] [place] [address] Performed By: #### 2 4323-8 ####[facility] LABCLIA [id number] [place] [address] ALP [Catalytic activity/Vol] 74 U/L Normal 34-123 [facility] Comment on above: Order Comment: Speci men Type: BLOOD SPECIMENOrdering Facility: [facility] Address: [address] [place] [address] Performed By: #### 2 4323-8 ####[facility] LABCLIA [id number] [place] [address] ALT [Catalytic activity/Vol] 17 U/L Normal 7-38 [facility] Comment on above: Order Comment: Speci men Type: BLOOD SPECIMENOrdering Facility: [facility] Address: [address] [place] [address] Performed By: #### 2 4323-8 ####[facility] LABCLIA [id number] [place] [address] Anion gap [Moles/Vol] 12 mmol/L Normal 9-18 [facility] Comment on above: Order Comment: Speci men Type: BLOOD SPECIMENOrdering Facility: [facility] Address: [address] [place] [address] Performed By: #### 2 4323-8 ####[facility] LABCLIA [id number] [place] [address] AST [Catalytic activity/Vol] 11 U/L Low 13-35 [facility] Comment on above: Order Comment: Speci men Type: BLOOD SPECIMENOrdering Facility: [facility] Address: [address] [place] [address] Performed By: #### 2 4323-8 ####[facility] LABCLIA [id number] [place] [address] Bilirubin [Mass/Vol] 0.2 mg/dL Normal 0.2-1.3 [facility] Comment on above: Order Comment: Speci men Type: BLOOD SPECIMENOrdering Facility: [facility] Address: [address] [place] [address] Performed By: #### 2 4323-8 ####[facility] LABCLIA [id number] [place] [address] Calcium [Mass/Vol] 9.4 mg/dL Normal 8.5-10.2 [facility] Comment on above: Order Comment: Speci men Type: BLOOD SPECIMENOrdering Facility: [facility] Address: [address] [place] [address] Performed By: #### 2 4323-8 ####[facility] LABCLIA [id number] [place] [address] Chloride [Moles/Vol] 106 mmol/L High 97-105 [facility] Comment on above: Order Comment: Speci men Type: BLOOD SPECIMENOrdering Facility: [facility] Address: [address] [place] [address] Performed By: #### 2 4323-8 ####[facility] LABCLIA [id number] [place] [address] CO2 [Moles/Vol] 26 mmol/L Normal 22-30 [facility] Comment on above: Order Comment: Speci men Type: BLOOD SPECIMENOrdering Facility: [facility] Address: [address] [place] [address] Performed By: #### 2 4323-8 ####[facility] LABCLIA [id number] [place] [address] Creatinine [Mass/Vol] 0.89 mg/dL Normal 0.58-0.96 [facility] Comment on above: Order Comment: Speci men Type: BLOOD SPECIMENOrdering Facility: [facility] Address: [address] [place] [address] Performed By: #### 2 4323-8 ####[facility] LABCLIA [id number] [place] [address] Creatinine and Glomerular filtration rate.predicted panel (S/P/Bld) 83 mL/min/1.73m??? Normal >=60 [facility] Comment on above: Order Comment: Speci men Type: BLOOD SPECIMENOrdering Facility: [facility] Address: [address] [place] [address] Result Comment: Erin mated Glomerular Filtration Rate [...] actual GFR. Performed By: #### 2 4323-8 ####[facility] LABIA [id number] [place] [address] Glucose [Mass/Vol] 120 mg/dL High 74-99 [facility] Comment on above: Order Comment: Speci men Type: BLOOD SPECIMENOrdering Facility: [facility] Address: [address] [place] [address] Result Comment: The [place] [employer] (ADA) provides guidance for cutoff [...] Standards of Medical Care in Diabetes 2016, [place] [employer]. Diabetes Care. 2016.39(Suppl 1). Performed By: #### 2 4323-8 ####[facility] LABIA [id number] [place] [address] Potassium [Moles/Vol] 3.7 mmol/L Normal 3.7-5.1 [facility] Comment on above: Order Comment: Speci men Type: BLOOD SPECIMENOrdering Facility: [facility] Address: [address] [place] [address] Performed By: #### 2 4323-8 ####[facility] LABCLIA [id number] [place] [address] Protein [Mass/Vol] 6.7 g/dL Normal 6.3-8.0 [facility] Comment on above: Order Comment: Speci men Type: BLOOD SPECIMENOrdering Facility: [facility] Address: [address] [place] [address] Performed By: #### 2 4323-8 ####[facility] LABCLIA [id number] [place] [address] Sodium [Moles/Vol] 144 mmol/L Normal 136-144 [facility] Comment on above: Order Comment: Speci men Type: BLOOD SPECIMENOrdering Facility: [facility] Address: [address] [place] [address] Performed By: #### 2 4323-8 ####[facility] LABCLIA [id number] [place] [address] Urea nitrogen [Mass/Vol] 24 mg/dL High 7-21 [facility] Comment on above: Order Comment: Speci men Type: BLOOD SPECIMENOrdering Facility: [facility] Address: [address] [place] [address] Performed By: #### 2 4323-8 ####[facility] LABIA [id number] [place] [address] Ferritin SerPl-ncon 2022 Ferritin [Mass/Vol] 21.2 ng/mL Normal 14.7-205.1 [facility] Comment on above: Order Comment: Speci men Type: BLOOD SPECIMENOrdering Facility: [facility] Address: [address] [place] [address] Performed By: #### 5 0190-8, 2-9, 6-4, 2283-8 ####[facility] LABIA [id number] [place] [address] [place] Folate SerPl-mCncon 04-09-20 23 Folate [Mass/Vol] 10.7 ng/mL Normal >4.7 [facility] Comment on above: Order Comment: Speci men Type: BLOOD SPECIMENOrdering Facility: [facility] Address: [address] [place] [address] Performed By: #### 5 0190-8, 2131-9, 2275-, 8 ####[facility] [id number] [place] [address] [place] INSULIN ANTIBODY BLDon 04-09 Insulin Ab Qn (S) <0.4 Normal <0.4 [facility] Comment on above: Order Comment: Speci men Type: BLOOD SPECIMENOrdering Facility: [facility] Address: [address] [place] [address] Result Comment: Anti -insulin antibody test is used as an aid in diagnosis and prognosis of autoimmune diabetes mellitus in combination with other tests such as anti-GAD65 and anti-IA-2 antibody. A single negative result cannot rule out autoimmune diabetes mellitus. The test is not reliable in patients who had previously received exogenous insulin. Clinical correlation is required. Performed By: #### I NSLAB ####[facility] LABIA [id number] [place] [address] [place] INSULIN ANTIBODY, QUALITATIVE Negative Normal Negative [facility] Comment on above: Order Comment: Speci men Type: BLOOD SPECIMENOrdering Facility: [facility] Address: [address] [place] [address] Performed By: #### I NSLAB ####[facility] LABIA [id number] [place] [address] [place] Insulin SerPl-aCncon 023 Insulin Qn 266.5 u[IU]/mL High 3.0-25.0 [facility] Comment on above: Order Comment: Speci men Type: BLOOD SPECIMENOrdering Facility: [facility] Address: [address] [place] [address] Performed By: #### 2 0448-7 ####[facility] LABCLIA [id number] [place] [address] [place] Iron and Iron binding capaci ty panel 04-09-2023 Iron [Mass/Vol] 105 ug/dL Normal 41-186 [facility] Comment on above: Order Comment: Speci men Type: BLOOD SPECIMENOrdering Facility: [facility] Address: [address] [place] [address] Performed By: #### 5 0190-8, 9, 2275-08, 2283-12 ####[facility] LABCLIA [id number] [place] [address] [place] Iron binding capacity [Mass/Vol] 414 ug/dL High 232-386 [facility] Comment on above: Order Comment: Speci men Type: BLOOD SPECIMENOrdering Facility: [facility] Address: [address] [place] [address] Performed By: #### 5 0190-8, 2132-01, 2275-08, 2283-12 ####[facility] LABIA [id number] [place] [address] [place] Iron/TIBC [Molar ratio] 25.4 % Normal 15.0-57.0 [facility] Comment on above: Order Comment: Speci men Type: BLOOD SPECIMENOrdering Facility: [facility] Address: [address] [place] [address] Performed By: #### 5 0190-8, 9, 2275-08, 2283-12 ####[facility] LABCLIA [id number] [place] [id number] [place] Vit B12 [facility] 023 Cobalamin (Vitamin B12) [Mass/Vol] 370 pg/mL Normal 232-1245 [facility] Comment on above: Order Comment: Speci men Type: BLOOD SPECIMENOrdering Facility: [facility] Address: [address] [place] [address] Performed By: #### 5 0190-8, 2132-9, 2276-4, 2284-8 ####[facility] LABCLIA [id number] [place] [address] [place] CNNURSEon 03-19-2023 CNNURSE Normal [facility] CNNURSEon 03-11-2023 CNNURSE Normal [facility] CNPNon 03-01-2023 CNPN Normal [facility] CNNURSEon 02-19-2023 CNNURSE Normal [facility] CNOVSPon 02-19-2023 CNOVSP Normal [facility] B2 Microglob SerPl-mCncon Msqq-4-Umzerfhwnqzep [Mass/Vol] 1.9 ug/mL Normal 0.8-2.4 [facility] Comment on above: Order Comment: Speci men Type: BLOOD SPECIMENOrdering Facility: [facility] Address: [address] [place] [address] Result Comment: Beta -2 Microglobulin test is performed using the [employer] immunoturbidimetric method. Results obtained with different methods or kits cannot be used interchangeably. Performed By: #### 1 [id number], 88997-6, 2275-4 ####[facility] [id number] [place] [address] [place] CBC W Auto Differential pane l (Bld)on 02-11-2023 Basophils (Bld) [#/Vol] 0.08 10*3/uL Normal <0.11 [facility] Comment on above: Order Comment: Speci men Type: BLOOD SPECIMENOrdering Facility: [facility] Address: [address] [place], [place] [address] Performed By: #### 5 7021-8 ####[facility] LABCLIA [id number] [place] [address] Basophils/100 WBC (Bld) 0.8 % Normal [facility] Comment on above: Order Comment: Speci men Type: BLOOD SPECIMENOrdering Facility: [facility] Address: [address] [place] [address] Performed By: #### 5 7021-8 ####[facility] LABCLIA [id number] [place] [address] Differential cell count method Nom (Bld) Auto Normal [facility] Comment on above: Order Comment: Speci men Type: BLOOD SPECIMENOrdering Facility: [facility] Address: [address] [place] [address] Performed By: #### 5 7021-8 ####[facility] LABCLIA [id number] [place] [address] Eosinophils (Bld) [#/Vol] 0.16 10*3/uL Normal <0.46 [facility] Comment on above: Order Comment: Speci men Type: BLOOD SPECIMENOrdering Facility: [facility] Address: [address] [place] [address] Performed By: #### 5 7021-8 ####[facility] LABCLIA [id number] [place] [address] Eosinophils/100 WBC (Bld) 1.6 % Normal [facility] Comment on above: Order Comment: Speci men Type: BLOOD SPECIMENOrdering Facility: [facility] Address: [address] [place] [address] Performed By: #### 5 7021-8 ####[facility] LABCLIA [id number] [place] [address] Erythrocyte distribution width (RBC) [Ratio] 14.6 % Normal 11.5-15.0 [facility] Comment on above: Order Comment: Speci men Type: BLOOD SPECIMENOrdering Facility: [facility] Address: [address] [place] [address] Performed By: #### 5 7021-8 ####[facility] LABCLIA [id number] [place] [address] Hematocrit (Bld) [Volume fraction] 41.0 % Normal 36.0-46.0 [facility] Comment on above: Order Comment: Speci men Type: BLOOD SPECIMENOrdering Facility: [facility] Address: [address] [place] [address] Performed By: #### 5 7021-8 ####[facility] LABCLIA [id number] [place] [address] Hemoglobin (Bld) [Mass/Vol] 13.2 g/dL Normal 11.5-15.5 [facility] Comment on above: Order Comment: Speci men Type: BLOOD SPECIMENOrdering Facility: [facility] Address: [address] [place] [address] Performed By: #### 5 7021-8 ####[facility] LABCLIA [id number] [place] [address] Immature granulocytes (Bld) [#/Vol] 0.07 10*3/uL Normal <0.10 [facility] Comment on above: Order Comment: Speci men Type: BLOOD SPECIMENOrdering Facility: [facility] Address: [address] [place] [address] Performed By: #### 5 7021-8 ####[facility] LABCLIA [id number] [place] [address] Immature granulocytes/100 WBC (Bld) 0.7 % Normal [facility] Comment on above: Order Comment: Speci men Type: BLOOD SPECIMENOrdering Facility: [facility] Address: [address] [place] [address] Performed By: #### 5 7021-8 ####[facility] LABCLIA [id number] [place] [address] Lymphocytes (Bld) [#/Vol] 2.29 10*3/uL Normal 1.00-4.00 [facility] Comment on above: Order Comment: Speci men Type: BLOOD SPECIMENOrdering Facility: [facility] Address: [address] [place] [address] Performed By: #### 5 7021-8 ####[facility] LABCLIA [id number] [place] [address] Lymphocytes/100 WBC (Bld) 22.4 % Normal [facility] Comment on above: Order Comment: Speci men Type: BLOOD SPECIMENOrdering Facility: [facility] Address: [address] [place] [address] Performed By: #### 5 7021-8 ####[facility] LABCLIA [id number] [place] [address] MCH (RBC) [Entitic mass] 30.6 pg Normal 26.0-34.0 [facility] Comment on above: Order Comment: Speci men Type: BLOOD SPECIMENOrdering Facility: [facility] Address: [address] [place] [address] Performed By: #### 5 7021-8 ####[facility] LABCLIA [id number] [place] [address] MCHC (RBC) [Mass/Vol] 32.2 g/dL Normal 30.5-36.0 [facility] Comment on above: Order Comment: Speci men Type: BLOOD SPECIMENOrdering Facility: [facility] Address: [address] [address] Performed By: #### 5 7021-8 ####[facility] LABCLIA [id number] [place] [address] MCV (RBC) [Entitic vol] 94.9 fL Normal 80.0-100.0 [facility] Comment on above: Order Comment: Speci men Type: BLOOD SPECIMENOrdering Facility: [facility] Address: [address] [place] [address] Performed By: #### 5 7021-8 ####[facility] LABCLIA [id number] [place] [address] Monocytes (Bld) [#/Vol] 0.62 10*3/uL Normal <0.87 [facility] Comment on above: Order Comment: Speci men Type: BLOOD SPECIMENOrdering Facility: [facility] Address: [address] [address] Performed By: #### 5 7021-8 ####[facility] LABCLIA [id number] [place] [address] Monocytes/100 WBC (Bld) 6.1 % Normal [facility] Comment on above: Order Comment: Speci men Type: BLOOD SPECIMENOrdering Facility: [facility] Address: [address] [place] [address] Performed By: #### 5 7021-8 ####[facility] LABCLIA [id number] [place] [address] Neutrophils (Bld) [#/Vol] 6.99 10*3/uL Normal 1.45-7.50 [facility] Comment on above: Order Comment: Speci men Type: BLOOD SPECIMENOrdering Facility: [facility] Address: [address] [place] [address] Performed By: #### 5 7021-8 ####[facility] LABCLIA [id number] [place] [address] Neutrophils/100 WBC (Bld) 68.4 % Normal [facility] Comment on above: Order Comment: Speci men Type: BLOOD SPECIMENOrdering Facility: [facility] Address: [address] [place] [address] Performed By: #### 5 7021-8 ####[facility] LABIA [id number] [place] [address] Nucleated RBC (Bld) [#/Vol] 10*3/uL Normal <0.01 [facility] Comment on above: Order Comment: Speci men Type: BLOOD SPECIMENOrdering Facility: [facility] Address: [address] [address] Performed By: #### 5 7021-8 ####[facility] LABCLIA [id number] [place] [address] Nucleated RBC/100 WBC (Bld) [Ratio] 0.0 /100 WBC Normal [facility] Comment on above: Order Comment: Speci men Type: BLOOD SPECIMENOrdering Facility: [facility] Address: [address] [address] Performed By: #### 5 7021-8 ####[facility] LABCLIA [id number] [place] [address] Platelet mean volume (Bld) [Entitic vol] 9.6 fL Normal 9.0-12.7 [facility] Comment on above: Order Comment: Speci men Type: BLOOD SPECIMENOrdering Facility: [facility] Address: [address] [address] Performed By: #### 5 7021-8 ####[facility] LABCLIA [id number] [place] [address] Platelets (Bld) [#/Vol] 258 10*3/uL Normal 150-400 [facility] Comment on above: Order Comment: Speci men Type: BLOOD SPECIMENOrdering Facility: [facility] Address: [address] [address] Performed By: #### 5 7021-8 ####[facility] LABCLIA [id number] [place] [address] RBC (Bld) [#/Vol] 4.32 10*6/uL Normal 3.90-5.20 [facility] Comment on above: Order Comment: Speci men Type: BLOOD SPECIMENOrdering Facility: [facility] Address: [address] [place] [address] Performed By: #### 5 7021-8 ####[facility] LABCLIA [id number] [place] [address] WBC (Bld) [#/Vol] 10.21 10*3/uL Normal 3.70-11.00 [facility] Comment on above: Order Comment: Speci men Type: BLOOD SPECIMENOrdering Facility: [facility] Address: [address] [place] [address] Performed By: #### 5 7021-8 ####[facility] LABCLIA [id number] [place] [address] Calcium.ionized [Moles/Vol]o n 02-11-2023 Calcium.ionized (Bld) [Mass/Vol] 1.32 mmol/L High 1.08-1.30 [facility] Comment on above: Order Comment: Speci men Type: BLOOD SPECIMENOrdering Facility: [facility] Address: [address] [place] [address] Performed By: #### 1 995-0 ####[facility] LABCLIA [id number] [place] [address] [place] Calcium.ionized adjusted to pH 7.4 (Bld) [Moles/Vol] 1.27 mmol/L Normal 1.08-1.30 [facility] Comment on above: Order Comment: Speci men Type: BLOOD SPECIMENOrdering Facility: [facility] Address: [address] [place] [address] Performed By: #### 1 995-0 ####[facility] LABCLIA [id number] [place] [address] [place] Comprehensive metabolic 2000 panelon 02-11-2023 Albumin [Mass/Vol] 4.0 g/dL Normal 3.9-4.9 [facility] Comment on above: Order Comment: Speci men Type: BLOOD SPECIMENOrdering Facility: [facility] Address: [address] [place] [address] Performed By: #### 2 4323-8, 2532-0, 2776-1, 308-1 ####[facility] LABCLIA [id number] [place] [address] ALP [Catalytic activity/Vol] 75 U/L Normal 34-123 [facility] Comment on above: Order Comment: Speci men Type: BLOOD SPECIMENOrdering Facility: [facility] Address: [address] [place] [address] Performed By: #### 2 4323-8, 2532-0, 2776-1, 3083-1 ####[facility] LABCLIA [id number] [place] [address] ALT [Catalytic activity/Vol] 21 U/L Normal 7-38 [facility] Comment on above: Order Comment: Speci men Type: BLOOD SPECIMENOrdering Facility: [facility] Address: [address] [place] [address] Performed By: #### 2 4323-8, 2532-0, 2776-1, 3083- ####[facility] LABIA [id number] [place] [address] Anion gap [Moles/Vol] 11 mmol/L Normal 9-18 [facility] Comment on above: Order Comment: Speci men Type: BLOOD SPECIMENOrdering Facility: [facility] Address: [address] [place] [address] Performed By: #### 2 4323-8, 2-0, 2776-, 3083-1 ####[facility] LABIA [id number] [place] [address] AST [Catalytic activity/Vol] 11 U/L Low 13-35 [facility] Comment on above: Order Comment: Speci men Type: BLOOD SPECIMENOrdering Facility: [facility] Address: [address] [place] [address] Performed By: #### 2 4323-8, 2532-0, 7-1, 3083-1 ####[facility] LABCLIA [id number] [place] [address] Bilirubin [Mass/Vol] mg/dL Low 0.2-1.3 [facility] Comment on above: Order Comment: Speci men Type: BLOOD SPECIMENOrdering Facility: [facility] Address: [address] [place] [address] Performed By: #### 2 4323-8, 2532-0, 2777-1, 3084-1 ####[facility] LABCLIA [id number] [place] [address] Calcium [Mass/Vol] 9.7 mg/dL Normal 8.5-10.2 [facility] Comment on above: Order Comment: Speci men Type: BLOOD SPECIMENOrdering Facility: [facility] Address: [address] [place] [address] Performed By: #### 2 4323-8, 2532-0, 2777-1, 3084-1 ####[facility] LABIA [id number] [place] [address] Chloride [Moles/Vol] 107 mmol/L High 97-105 [facility] Comment on above: Order Comment: Speci men Type: BLOOD SPECIMENOrdering Facility: [facility] Address: [address] [place] [address] Performed By: #### 2 4323-8, 2532-0, 7-1, 3084-1 ####[facility] LABIA [id number] [place] [address] CO2 [Moles/Vol] 23 mmol/L Normal 22-30 [facility] Comment on above: Order Comment: Speci men Type: BLOOD SPECIMENOrdering Facility: [facility] Address: [address] [place] [address] Performed By: #### 2 4323-8, 2532-0, 2777-1, 3084-1 ####[facility] LABCLIA [id number] [place] [address] Creatinine [Mass/Vol] 0.76 mg/dL Normal 0.58-0.96 [facility] Comment on above: Order Comment: Semaj cortés Type: BLOOD SPECIMENOrdering Facility: [facility] Address: [address] [place] [address] Performed By: #### 2 4323-8, 2532-0, 2777-1, 3084-1 ####[facility] LABCLIA [id number] [place] [address] Creatinine and Glomerular filtration rate.predicted panel (S/P/Bld) 100 mL/min/1.73m??? Normal >=60 [facility] Comment on above: Order Comment: Semaj moo Type: BLOOD SPECIMENOrdering Facility: [facility] Address: [address] [place], [place] [address] Result Comment: Erin mated Glomerular Filtration Rate [...] By: #### 2 4323-8, 2532-0, 2777-1, 3084-1 ####[facility] LABCLIA [id number] [place] [address] Glucose [Mass/Vol] 164 mg/dL High 74-99 [facility] Comment on above: Order Comment: Semaj cortés Type: BLOOD SPECIMENOrdering Facility: [facility] Address: [address] [place], [place] [address] Result Comment: The [place] [employer] (ADA) provides guidance for cutoff [...] Standards of Medical Care in Diabetes 2016, [place] [employer]. Diabetes Care. 2016.39(Suppl 1). Performed By: #### 2 4323-8, 2532-0, 7-1, 3084-1 ####[facility] LABCLIA [id number] [place] [address] Potassium [Moles/Vol] 4.0 mmol/L Normal 3.7-5.1 [facility] Comment on above: Order Comment: Speci men Type: BLOOD SPECIMENOrdering Facility: [facility] Address: [address] [place] [address] Performed By: #### 2 4323-8, 2-0, 7-1, 3083-1 ####[facility] LABIA [id number] [place] [address] Protein [Mass/Vol] 6.5 g/dL Normal 6.3-8.0 [facility] Comment on above: Order Comment: Semaj cortés Type: BLOOD SPECIMENOrdering Facility: [facility] Address: [address] [place] [address] Performed By: #### 2 4323-8, 2532-0, 2776-1, 3083-1 ####[facility] LABIA [id number] [place] [address] Sodium [Moles/Vol] 141 mmol/L Normal 136-144 [facility] Comment on above: Order Comment: Leolai moo Type: BLOOD SPECIMENOrdering Facility: [facility] Address: [address] [place] [address] Performed By: #### 2 4323-8, 2532-0, 7-1, 3084-1 ####[facility] LABCLIA [id number] [place] [address] Urea nitrogen [Mass/Vol] 15 mg/dL Normal 7- [facility] Comment on above: Order Comment: Speci men Type: BLOOD SPECIMENOrdering Facility: [facility] Address: [address] [place] [address] Performed By: #### 2 4323-8, 2532-0, 2777-1, 3084-1 ####[facility] LABCLIA [id number] [place] [address] Ferritin SerPl-mCncon 2022 Ferritin [Mass/Vol] 34.2 ng/mL Normal 14.7-205.1 [facility] Comment on above: Order Comment: Speci men Type: BLOOD SPECIMENOrdering Facility: [facility] Address: [address] [place] [address] Performed By: #### 1 952-1, 50322-9, 2276-4 ####[facility] LABCLIA [id number] [address] [place] Folate SerPl-mCncon 02-12-20 23 Folate [Mass/Vol] ng/mL Normal >4.7 [facility] Comment on above: Order Comment: Speci men Type: BLOOD SPECIMENOrdering Facility: [facility] Address: [address] [place] [address] Result Comment: A re sult of > 20 ng/mL is not necessarily indicative of a pathologic or treatable condition: it reflects a limitation of the test methodology.Assay reference range: 4.8 to 24.2 ng/mL. Suitable for detection of folate deficiency.Reference:Folate III (Folate III) [package insert V 1.0 [place]onian]. [facility], [place], [place]: March 2015. Performed By: #### 2 885-2, 2132-9, 2284-8 ####[facility] LABCLIA [id number] [place] [id number] [place] IMMUNOFIXATION SCREEN, SERUM on 02-11-2023 MPA RESULT No M protein is identified. Normal No M protein is identified. [facility] Comment on above: Order Comment: Speci men Type: BLOOD SPECIMENOrdering Facility: [facility] Address: [address] [place] [address] Performed By: #### I FES ####[facility] LABCLIA [id number] [address] [place] STAFF REVIEW (MPA) Reviewed by Marshall Singh [facility] Comment on above: Order Comment: Speci men Type: BLOOD SPECIMENOrdering Facility: [facility] Address: [address] [place] [address] Performed By: #### I FES ####[facility] LABCLIA [id number] [place] [address] [place] IMMUNOGLOBULINS GAMon 2022 IgA [Mass/Vol] 178 mg/dL Normal 70-400 [facility] Comment on above: Order Comment: Speci men Type: BLOOD SPECIMENOrdering Facility: [facility] Address: [address] [place], [place] [address] Performed By: #### S ERIMM ####[facility] LABCLIA [id number] [place] [address] [place] IgG [Mass/Vol] 534 mg/dL Low 700-1600 [facility] Comment on above: Order Comment: Speci men Type: BLOOD SPECIMENOrdering Facility: [facility] Address: [address] [place], [place] [address] Performed By: #### S ERIMM ####[facility] LABCLIA [id number] [place] [address] [place] IgM [Mass/Vol] 453 mg/dL High 40-230 [facility] Comment on above: Order Comment: Speci men Type: BLOOD SPECIMENOrdering Facility: [facility] Address: [address] [place], [place] [address] Performed By: #### S ERIMM ####[facility] LABCLIA [id number] [address] [place] Iron and Iron binding capaci ty panelon 02-11-2023 Iron [Mass/Vol] 55 ug/dL Normal 41-186 [facility] Comment on above: Order Comment: Speci men Type: BLOOD SPECIMENOrdering Facility: [facility] Address: [address] [place] [address] Performed By: #### 1 952-1, 63500-5, 6-4 ####[facility] LABIA [id number] [place] [address] [place] Iron binding capacity [Mass/Vol] 339 ug/dL Normal 232-386 [facility] Comment on above: Order Comment: Speci men Type: BLOOD SPECIMENOrdering Facility: [facility] Address: [address] [place] [address] Performed By: #### 1 952-1, 16024-4, 2275-4 ####[facility] LABIA [id number] [address] [place] Iron/TIBC [Molar ratio] 16.2 % Normal 15.0-57.0 [facility] Comment on above: Order Comment: Speci men Type: BLOOD SPECIMENOrdering Facility: [facility] Address: [address] [place] [address] Performed By: #### 1 952-1, 50928-2, 2275-4 ####[facility] LABIA [id number] [place] [address] [place] KAPPA/FARMER,FREE,SERon 2022 Immunoglobulin light chains.kappa.free (S) [Mass/Vol] 13.1 mg/L Normal 3.3-19.4 [facility] Comment on above: Order Comment: Speci men Type: BLOOD SPECIMENOrdering Facility: [facility] Address: [address] [place] [address] Result Comment: Rare ly, increased serum free light chains levels may not be detected or accurately quantified due to prozone phenomenon or in high viscosity samples using this immunoturbidimetric assay. Correlation with other laboratory results and clinical findings is recommended.The [place] Free Light Chain was performed using the Binding Site Optilite immunoturbidimetric method. Result obtained with different assay methods or kits cannot be used interchangeably. Performed By: #### K LFRS ####[facility] LABCLIA [id number] [address] [place] Immunoglobulin light chains.kappa/Immunogl obulin light chains.lambda (S) [Mass ratio] 1.22 Normal 0.26-1.65 [facility] Comment on above: Order Comment: Speci men Type: BLOOD SPECIMENOrdering Facility: [facility] Address: [address] [place] [address] Performed By: #### K LFRS ####[facility] LABCLIA [id number] [address] STATES OF [facility] Immunoglobulin light chains.lambda.free [Mass/Vol] 10.7 mg/L Normal 5.7-26.3 [facility] Comment on above: Order Comment: Speci men Type: BLOOD SPECIMENOrdering Facility: [facility] Address: [address] [place] [address] Result Comment: Rare ly, increased serum free [...] used interchangeably. Performed By: #### K LFRS ####[facility] LABCLIA [id number] [place] [address] [place] LDH SerPl-cCncon 02-11-2023 LDH [Catalytic activity/Vol] 190 U/L Normal 135-214 [facility] Comment on above: Order Comment: Speci men Type: BLOOD SPECIMENOrdering Facility: [facility] Address: [address] [address] Result Comment: Hemo lysis present. The origin [...] By: #### 2 4323-8, 2532-0, 2777-1, 3084-1 ####[facility] LABCLIA [id number] [place] [address] PROTEIN ELECTROPHORESIS SERU M (P)on 02-11-2023 Albumin [Mass/Vol] 3.61 g/dL Normal 3.43-5.41 [facility] Comment on above: Order Comment: Speci men Type: BLOOD SPECIMENOrdering Facility: [facility] Address: [address] [address] Performed By: #### L [id number] ####[facility] LABCLIA [id number] [place] [address] [place] Alpha 1 globulin Elph [Mass/Vol] 0.31 g/dL Normal 0.18-0.43 [facility] Comment on above: Order Comment: Leolai moo Type: BLOOD SPECIMENOrdering Facility: [facility] Address: [address] [place] [address] Performed By: #### L [id number] ####[facility] LABCLIA [id number] [address] [place] Alpha 2 globulin Elph [Mass/Vol] 0.76 g/dL Normal 0.42-0.98 [facility] Comment on above: Order Comment: Speci men Type: BLOOD SPECIMENOrdering Facility: [facility] Address: [address] [address] Performed By: #### L [id number] ####[facility] LABCLIA [id number] Beta globulin Elph [Mass/Vol] 0.85 g/dL Normal 0.61-1.17 [facility] Comment on above: Order Comment: Speci men Type: BLOOD SPECIMENOrdering Facility: [facility] Address: [address] [place] [address] Performed By: #### L [id number] ####[facility] LABCLIA [id number] [address] Gamma globulin Elph [Mass/Vol] 0.66 g/dL Normal 0.53-1.51 [facility] Comment on above: Order Comment: Speci men Type: BLOOD SPECIMENOrdering Facility: [facility] Address: [address] [place] [address] Performed By: #### L [id number] ####[facility] LABCLIA [id number] [address] OF [facility] M-PROTEIN LOCATION Normal [facility] Comment on above: Order Comment: Speci men Type: BLOOD SPECIMENOrdering Facility: [facility] Address: [address] [place] [address] Result Comment: Not Applicable. Performed By: #### L [id number] ####[facility]CL[facility] [id number] [address] [place] Protein Fractions [Interp] No definitive M protein is identified on protein electrophoresis. Normal No definitive M protein is identified on protein electrophores is. [facility] Comment on above: Order Comment: Speci men Type: BLOOD SPECIMENOrdering Facility: [facility] Address: [address] [place] [address] Performed By: #### L [id number] ####[facility] [id number] [address] [place] Protein.monoclonal Elph [Mass/Vol] 0.00 g/dL Normal <=0.00 [facility] Comment on above: Order Comment: Speci men Type: BLOOD SPECIMENOrdering Facility: [facility] Address: [address] [place] [address] Performed By: #### L [id number] ####[facility] LABCLIA [id number] [place] [address] [place] SPE STAFF REVIEW Reviewed by Daphne Pillai M.D. [facility] Comment on above: Order Comment: Speci men Type: BLOOD SPECIMENOrdering Facility: [facility] Address: [address] [place] [address] Performed By: #### L [id number] ####[facility] LABCLIA [id number] [place] [address] [place] Phosphate SerPl-mCncon 02-11 Phosphate [Mass/Vol] 3.4 mg/dL Normal 2.7-4.8 [facility] Comment on above: Order Comment: Speci men Type: BLOOD SPECIMENOrdering Facility: [facility] Address: [address] [place] [address] Performed By: #### 2 4323-8, 2532-0, 2777-1, 3084-1 ####[facility] LABCLIA [id number] [place] [id number] Prot SerPl-mCncon 02-11-2023 Protein [Mass/Vol] 6.2 g/dL Low 6.3-8.0 [facility] Comment on above: Order Comment: Speci men Type: BLOOD SPECIMENOrdering Facility: [facility] Address: [address] [place] [address] Performed By: #### 2 885-2, 2132-9, 2284-8 ####[facility] LABCLIA [id number] [place] [address] [place] Urate SerPl-mCncon Urate [Mass/Vol] 4.3 mg/dL Normal 2.5-6.[address] [facility] Comment on above: Order Comment: Speci men Type: BLOOD SPECIMENOrdering Facility: [facility] Address: [place] [address] Performed By: #### 2 4323-8, 2532-0, 2777-1, 3084-1 ####[facility] LABCLIA [id number] [place] [address] Vit B12 [facility] Cobalamin (Vitamin B12) [Mass/Vol] 598 pg/mL Normal 232-1245 [facility] Comment on above: Order Comment: Speci men Type: BLOOD SPECIMENOrdering Facility: [facility] Address: [place] [address] Performed By: #### 2 885-2, 2132-9, 2284-8 ####[facility] LABCLIA [id number] [address] [place] CNPNon 02-04-2023 CNPN Normal [facility] CNPNon 01-24-2023 CNPN Normal [facility] 25(OH)D3 [facility] 2022 25-hydroxyvitamin D3 [Mass/Vol] 25.1 ng/mL Low 31.0-80.0 [facility] Comment on above: Order Comment: Speci men Type: BLOOD SPECIMENOrdering Facility: [facility] Address: [place] [address] Result Comment: Clas sification of 25 [place] Vitamin D status:Deficiency/Insufficiency: < or = 30 ng/ml.Sufficiency/Optimal Levels: 31-80 ng/mLToxicity: > 100 ng/mL.Test performed by chemiluminescent immunoassay. Performed By: #### 1 989-3 ####[facility] LABCLIA [id number] [place] [id number] [place] CBC panel Auto (Bld)on 01-22 Erythrocyte distribution width (RBC) [Ratio] 14.8 % Normal 11.5-15.0 [facility] Comment on above: Order Comment: Speci men Type: BLOOD SPECIMENOrdering Facility: [facility] Address: [address] [place] [address] Performed By: #### 5 8410-2 ####[facility] LABCLIA [id number] [place] [address] Hematocrit (Bld) [Volume fraction] 40.9 % Normal 36.0-46.0 [facility] Comment on above: Order Comment: Speci men Type: BLOOD SPECIMENOrdering Facility: [facility] Address: [address] [place] [address] Performed By: #### 5 8410-2 ####[facility] LABCLIA [id number] [place] [address] Hemoglobin (Bld) [Mass/Vol] 13.4 g/dL Normal 11.5-15.5 [facility] Comment on above: Order Comment: Speci men Type: BLOOD SPECIMENOrdering Facility: [facility] Address: [address] [place] [address] Performed By: #### 5 8410-2 ####[facility] LABCLIA [id number] [place] [address] MCH (RBC) [Entitic mass] 30.1 pg Normal 26.0-34.0 [facility] Comment on above: Order Comment: Speci men Type: BLOOD SPECIMENOrdering Facility: [facility] Address: [address] [place] [address] Performed By: #### 5 8410-2 ####[facility] LABCLIA [id number] [place] [address] MCHC (RBC) [Mass/Vol] 32.8 g/dL Normal 30.5-36.0 [facility] Comment on above: Order Comment: Speci men Type: BLOOD SPECIMENOrdering Facility: [facility] Address: [address] [place] [address] Performed By: #### 5 8410-2 ####[facility] LABCLIA [id number] [place] [address] MCV (RBC) [Entitic vol] 91.9 fL Normal 80.0-100.0 [facility] Comment on above: Order Comment: Speci men Type: BLOOD SPECIMENOrdering Facility: [facility] Address: [address] [place] [address] Performed By: #### 5 8410-2 ####[facility] LABCLIA [id number] [place] [address] Nucleated RBC (Bld) [#/Vol] 10*3/uL Normal <0.01 [facility] Comment on above: Order Comment: Speci men Type: BLOOD SPECIMENOrdering Facility: [facility] Address: [address] [place] [address] Performed By: #### 5 8410-2 ####[facility] LABIA [id number] [place] [address] Platelet mean volume (Bld) [Entitic vol] 9.6 fL Normal 9.0-12.7 [facility] Comment on above: Order Comment: Speci men Type: BLOOD SPECIMENOrdering Facility: [facility] Address: [address] [place] [address] Performed By: #### 5 8410-2 ####[facility] LABIA [id number] [place] [address] Platelets (Bld) [#/Vol] 285 10*3/uL Normal 150-400 [facility] Comment on above: Order Comment: Speci men Type: BLOOD SPECIMENOrdering Facility: [facility] Address: [address] [place] [address] Performed By: #### 5 8410-2 ####[facility] LABIA [id number] [place] [address] RBC (Bld) [#/Vol] 4.45 10*6/uL Normal 3.90-5.20 [facility] Comment on above: Order Comment: Speci men Type: BLOOD SPECIMENOrdering Facility: [facility] Address: [address] [place] [address] Performed By: #### 5 8410-2 ####[facility] LABCLIA [id number] [place] [address] WBC (Bld) [#/Vol] 13.80 10*3/uL High 3.70-11.00 [facility] Comment on above: Order Comment: Speci men Type: BLOOD SPECIMENOrdering Facility: [facility] Address: [address] [place] [address] Performed By: #### 5 8410-2 ####[facility] LABCLIA [id number] [place] [address] CNNURSEon 01-22-2023 CNNURSE Normal [facility] CRP SerPl-mCncon 01-22-2023 CRP [Mass/Vol] mg/L Normal <0.9 [facility] Comment on above: Order Comment: Speci men Type: BLOOD SPECIMENOrdering Facility: [facility] Address: [address] [place] [address] Performed By: #### 1 988-5 ####[facility] LABCLIA [id number] [address] [address] [facility] Comprehensive metabolic 2000 panelon 01-22-2023 Albumin [Mass/Vol] 4.1 g/dL Normal 3.9-4.9 [facility] Comment on above: Order Comment: Speci men Type: BLOOD SPECIMENOrdering Facility: [facility] Address: [address] [place] [address] Performed By: #### 2 4323-8 ####[facility] LABCLIA [id number] [place] [address] ALP [Catalytic activity/Vol] 62 U/L Normal 34-123 [facility] Comment on above: Order Comment: Speci men Type: BLOOD SPECIMENOrdering Facility: [facility] Address: [address] [place] [address] Performed By: #### 2 4323-8 ####[facility] LABCLIA [id number] [place] [address] ALT [Catalytic activity/Vol] 27 U/L Normal 7-38 [facility] Comment on above: Order Comment: Speci men Type: BLOOD SPECIMENOrdering Facility: [facility] Address: [address] [place] [address] Performed By: #### 2 4323-8 ####[facility] LABCLIA [id number] [place] [address] Anion gap [Moles/Vol] 10 mmol/L Normal 9-18 [facility] Comment on above: Order Comment: Speci men Type: BLOOD SPECIMENOrdering Facility: [facility] Address: [address] [place] [address] Performed By: #### 2 4323-8 ####[facility] LABCLIA [id number] [place] [address] AST [Catalytic activity/Vol] 12 U/L Low 13-35 [facility] Comment on above: Order Comment: Speci men Type: BLOOD SPECIMENOrdering Facility: [facility] Address: [address] [place] [address] Performed By: #### 2 4323-8 ####[facility] LABCLIA [id number] [place] [address] Bilirubin [Mass/Vol] 0.2 mg/dL Normal 0.2-1.3 [facility] Comment on above: Order Comment: Speci men Type: BLOOD SPECIMENOrdering Facility: [facility] Address: [address] [place] [address] Performed By: #### 2 4323-8 ####[facility] LABCLIA [id number] [place] [address] Calcium [Mass/Vol] 9.4 mg/dL Normal 8.5-10.2 [facility] Comment on above: Order Comment: Speci men Type: BLOOD SPECIMENOrdering Facility: [facility] Address: [address] [place] [address] Performed By: #### 2 4323-8 ####[facility] LABCLIA [id number] [place] [address] Chloride [Moles/Vol] 107 mmol/L High 97-105 [facility] Comment on above: Order Comment: Speci men Type: BLOOD SPECIMENOrdering Facility: [facility] Address: [address] [place] [address] Performed By: #### 2 4323-8 ####[facility] LABCLIA [id number] [place] [address] CO2 [Moles/Vol] 24 mmol/L Normal 22-30 [facility] Comment on above: Order Comment: Speci men Type: BLOOD SPECIMENOrdering Facility: [facility] Address: [address] [place] [address] Performed By: #### 2 4323-8 ####[facility] LABCLIA [id number] [place] [address] Creatinine [Mass/Vol] 0.71 mg/dL Normal 0.58-0.96 [facility] Comment on above: Order Comment: Speci men Type: BLOOD SPECIMENOrdering Facility: [facility] Address: [address] [place] [address] Performed By: #### 2 4323-8 ####[facility] LABCLIA [id number] [place] [address] Creatinine and Glomerular filtration rate.predicted panel (S/P/Bld) 109 mL/min/1.73m??? Normal >=60 [facility] Comment on above: Order Comment: Speci men Type: BLOOD SPECIMENOrdering Facility: [facility] Address: [address] [place] [address] Result Comment: Erin mated Glomerular Filtration Rate [...] actual GFR. Performed By: #### 2 4323-8 ####[facility] LABCLIA [id number] [place] [address] Glucose [Mass/Vol] 60 mg/dL Low 74-99 [facility] Comment on above: Order Comment: Speci men Type: BLOOD SPECIMENOrdering Facility: [facility] Address: [address] [place] [address] Result Comment: The [place] [employer] (ADA) provides guidance for cutoff [...] Standards of Medical Care in Diabetes 2016, [place] [employer]. Diabetes Care. 2016.39(Suppl 1). Performed By: #### 2 4323-8 ####[facility] LABCLIA [id number] [place] [address] Potassium [Moles/Vol] 4.0 mmol/L Normal 3.7-5.1 [facility] Comment on above: Order Comment: Speci men Type: BLOOD SPECIMENOrdering Facility: [facility] Address: [address] [place], [place] [id number] Performed By: #### 2 4323-8 ####[facility] LABCLIA [id number] [place] [address] Protein [Mass/Vol] 6.7 g/dL Normal 6.3-8.0 [facility] Comment on above: Order Comment: Speci men Type: BLOOD SPECIMENOrdering Facility: [facility] Address: [address] [place] [address] Performed By: #### 2 4323-8 ####[facility] LABCLIA [id number] [place] [address] Sodium [Moles/Vol] 141 mmol/L Normal 136-144 [facility] Comment on above: Order Comment: Speci men Type: BLOOD SPECIMENOrdering Facility: [facility] Address: [address] [place] [address] Performed By: #### 2 4323-8 ####[facility] LABCLIA [id number] [place] [address] Urea nitrogen [Mass/Vol] 13 mg/dL Normal 7-21 [facility] Comment on above: Order Comment: Speci men Type: BLOOD SPECIMENOrdering Facility: [facility] Address: [address] [place] [address] Performed By: #### 2 4323-8 ####[facility] LABCLIA [id number] [place] [address] ESR Westergren method (Bld) [Velocity]on 01-22-2023 ESR (Bld) [Velocity] 20 mm/h Normal 0-20 [facility] Comment on above: Order Comment: Speci men Type: BLOOD SPECIMENOrdering Facility: [facility] Address: [address] [place] [address] Performed By: #### 4 537-7 ####[facility] LABCLIA [id number] [place] [address] [place] CNNURSEon 12-29-2022 CNNURSE Normal [facility] CNPNon 12-18-2022 CNPN Normal [facility] CNPNon 12-16-2022 CNPN Normal [facility] CBC W Auto Differential pane l (Bld)on 12-08-2022 Basophils (Bld) [#/Vol] 0.06 10*3/uL Normal <0.11 [facility] Comment on above: Order Comment: Speci men Type: BLOOD SPECIMENOrdering Facility: [facility] Address: [address] [place] [address] Performed By: #### 5 7021-8 ####[facility] LABCLIA [id number] [place] [address] Basophils/100 WBC (Bld) 0.4 % Normal [facility] Comment on above: Order Comment: Speci men Type: BLOOD SPECIMENOrdering Facility: [facility] Address: [address] [place] [address] Performed By: #### 5 7021-8 ####[facility] LABCLIA [id number] [place] [address] Differential cell count method Nom (Bld) Auto Normal [facility] Comment on above: Order Comment: Speci men Type: BLOOD SPECIMENOrdering Facility: [facility] Address: [address] [place] [address] Performed By: #### 5 7021-8 ####[facility] LABCLIA [id number] [place] [address] Eosinophils (Bld) [#/Vol] 0.11 10*3/uL Normal <0.46 [facility] Comment on above: Order Comment: Speci men Type: BLOOD SPECIMENOrdering Facility: [facility] Address: [address] [place] [address] Performed By: #### 5 7021-8 ####[facility] LABCLIA [id number] [place] [address] Eosinophils/100 WBC (Bld) 0.8 % Normal [facility] Comment on above: Order Comment: Speci men Type: BLOOD SPECIMENOrdering Facility: [facility] Address: [address] [place] [address] Performed By: #### 5 7021-8 ####[facility] LABCLIA [id number] [place] [address] Erythrocyte distribution width (RBC) [Ratio] 14.6 % Normal 11.5-15.0 [facility] Comment on above: Order Comment: Speci men Type: BLOOD SPECIMENOrdering Facility: [facility] Address: [address] [place] [address] Performed By: #### 5 7021-8 ####[facility] LABCLIA [id number] [place] [address] Hematocrit (Bld) [Volume fraction] 42.0 % Normal 36.0-46.0 [facility] Comment on above: Order Comment: Speci men Type: BLOOD SPECIMENOrdering Facility: [facility] Address: [address] [place] [address] Performed By: #### 5 7021-8 ####[facility] LABCLIA [id number] [place] [address] Hemoglobin (Bld) [Mass/Vol] 13.3 g/dL Normal 11.5-15.5 [facility] Comment on above: Order Comment: Speci men Type: BLOOD SPECIMENOrdering Facility: [facility] Address: [address] [place] [address] Performed By: #### 5 7021-8 ####[facility] LABCLIA [id number] [place] [address] Immature granulocytes (Bld) [#/Vol] 0.11 10*3/uL High <0.10 [facility] Comment on above: Order Comment: Speci men Type: BLOOD SPECIMENOrdering Facility: [facility] Address: [address] [place] [address] Performed By: #### 5 7021-8 ####[facility] LABCLIA [id number] [place] [address] Immature granulocytes/100 WBC (Bld) 0.8 % Normal [facility] Comment on above: Order Comment: Speci men Type: BLOOD SPECIMENOrdering Facility: [facility] Address: [address] [place] [address] Performed By: #### 5 7021-8 ####[facility] LABCLIA [id number] [place] [address] Lymphocytes (Bld) [#/Vol] 3.75 10*3/uL Normal 1.00-4.00 [facility] Comment on above: Order Comment: Speci men Type: BLOOD SPECIMENOrdering Facility: [facility] Address: [address] [place] [address] Performed By: #### 5 7021-8 ####[facility] LABCLIA [id number] [place] [address] Lymphocytes/100 WBC (Bld) 27.4 % Normal [facility] Comment on above: Order Comment: Speci men Type: BLOOD SPECIMENOrdering Facility: [facility] Address: [address] [place] [address] Performed By: #### 5 7021-8 ####[facility] LABCLIA [id number] [place] [address] MCH (RBC) [Entitic mass] 29.8 pg Normal 26.0-34.0 [facility] Comment on above: Order Comment: Speci men Type: BLOOD SPECIMENOrdering Facility: [facility] Address: [address] [place] [address] Performed By: #### 5 7021-8 ####[facility] LABCLIA [id number] [place] [address] MCHC (RBC) [Mass/Vol] 31.7 g/dL Normal 30.5-36.0 [facility] Comment on above: Order Comment: Speci men Type: BLOOD SPECIMENOrdering Facility: [facility] Address: [address] [place] [address] Performed By: #### 5 7021-8 ####[facility] LABCLIA [id number] [place] [address] MCV (RBC) [Entitic vol] 94.0 fL Normal 80.0-100.0 [facility] Comment on above: Order Comment: Speci men Type: BLOOD SPECIMENOrdering Facility: [facility] Address: [address] [place] [address] Performed By: #### 5 7021-8 ####[facility] LABCLIA [id number] [place] [address] Monocytes (Bld) [#/Vol] 1.07 10*3/uL High <0.87 [facility] Comment on above: Order Comment: Speci men Type: BLOOD SPECIMENOrdering Facility: [facility] Address: [address] [place] [address] Performed By: #### 5 7021-8 ####[facility] LABCLIA [id number] [place] [address] Monocytes/100 WBC (Bld) 7.8 % Normal [facility] Comment on above: Order Comment: Speci men Type: BLOOD SPECIMENOrdering Facility: [facility] Address: [address] [place] [address] Performed By: #### 5 7021-8 ####[facility] LABCLIA [id number] [place] [address] Neutrophils (Bld) [#/Vol] 8.57 10*3/uL High 1.45-7.50 [facility] Comment on above: Order Comment: Speci men Type: BLOOD SPECIMENOrdering Facility: [facility] Address: [address] [place] [address] Performed By: #### 5 7021-8 ####[facility] LABCLIA [id number] [place] [address] Neutrophils/100 WBC (Bld) 62.8 % Normal [facility] Comment on above: Order Comment: Speci men Type: BLOOD SPECIMENOrdering Facility: [facility] Address: [address] [address] Performed By: #### 5 7021-8 ####[facility] LABCLIA [id number] [place] [address] Nucleated RBC (Bld) [#/Vol] 10*3/uL Normal <0.01 [facility] Comment on above: Order Comment: Speci men Type: BLOOD SPECIMENOrdering Facility: [facility] Address: [address] [address] Performed By: #### 5 7021-8 ####[facility] LABCLIA [id number] [place] [address] Nucleated RBC/100 WBC (Bld) [Ratio] 0.0 /100 WBC Normal [facility] Comment on above: Order Comment: Speci men Type: BLOOD SPECIMENOrdering Facility: [facility] Address: [address] [address] Performed By: #### 5 7021-8 ####[facility] LABCLIA [id number] [place] [address] Platelet mean volume (Bld) [Entitic vol] 9.6 fL Normal 9.0-12.7 [facility] Comment on above: Order Comment: Speci men Type: BLOOD SPECIMENOrdering Facility: [facility] Address: [address] [address] Performed By: #### 5 7021-8 ####[facility] LABCLIA [id number] [place] [address] Platelets (Bld) [#/Vol] 301 10*3/uL Normal 150-400 [facility] Comment on above: Order Comment: Speci men Type: BLOOD SPECIMENOrdering Facility: [facility] Address: [address] [address] Performed By: #### 5 7021-8 ####[facility] LABCLIA [id number] [place] [address] RBC (Bld) [#/Vol] 4.47 10*6/uL Normal 3.90-5.20 [facility] Comment on above: Order Comment: Speci men Type: BLOOD SPECIMENOrdering Facility: [facility] Address: [address] [place] [address] Performed By: #### 5 7021-8 ####[facility] LABIA [id number] [place] [address] WBC (Bld) [#/Vol] 13.67 10*3/uL High 3.70-11.00 [facility] Comment on above: Order Comment: Speci men Type: BLOOD SPECIMENOrdering Facility: [facility] Address: [address] [place] [address] Performed By: #### 5 7021-8 ####[facility] LABIA [id number] [place] [address] CNPNon 12-08-2022 CNPN Normal [facility] Comprehensive metabolic 2000 panelon 12-08-2022 Albumin [Mass/Vol] 4.3 g/dL Normal 3.9-4.9 [facility] Comment on above: Order Comment: Speci men Type: BLOOD SPECIMENOrdering Facility: [facility] Address: [address] [place] [address] Performed By: #### 2 4323-8 ####[facility] LABIA [id number] [place] [address] ALP [Catalytic activity/Vol] 63 U/L Normal 34-123 [facility] Comment on above: Order Comment: Speci men Type: BLOOD SPECIMENOrdering Facility: [facility] Address: [address] [place] [address] Performed By: #### 2 4323-8 ####[facility] LABIA [id number] [place] [address] ALT [Catalytic activity/Vol] 19 U/L Normal 7-38 [facility] Comment on above: Order Comment: Speci men Type: BLOOD SPECIMENOrdering Facility: [facility] Address: [address] [address] Performed By: #### 2 4323-8 ####[facility] LABCLIA [id number] [place] [address] Anion gap [Moles/Vol] 5 mmol/L Low 9-18 [facility] Comment on above: Order Comment: Speci men Type: BLOOD SPECIMENOrdering Facility: [facility] Address: [address] [address] Performed By: #### 2 4323-8 ####[facility] LABCLIA [id number] [place] [address] AST [Catalytic activity/Vol] 10 U/L Low 13-35 [facility] Comment on above: Order Comment: Speci men Type: BLOOD SPECIMENOrdering Facility: [facility] Address: [address] [address] Performed By: #### 2 4323-8 ####[facility] LABCLIA [id number] [place] [address] Bilirubin [Mass/Vol] 0.2 mg/dL Normal 0.2-1.3 [facility] Comment on above: Order Comment: Speci men Type: BLOOD SPECIMENOrdering Facility: [facility] Address: [address] [address] Performed By: #### 2 4323-8 ####[facility] LABCLIA [id number] [place] [address] Calcium [Mass/Vol] 9.9 mg/dL Normal 8.5-10.2 [facility] Comment on above: Order Comment: Speci men Type: BLOOD SPECIMENOrdering Facility: [facility] Address: [address] [address] Performed By: #### 2 4323-8 ####[facility] LABCLIA [id number] [place] [address] Chloride [Moles/Vol] 106 mmol/L High 97-105 [facility] Comment on above: Order Comment: Speci men Type: BLOOD SPECIMENOrdering Facility: [facility] Address: [address] [place] [address] Performed By: #### 2 4323-8 ####[facility] LABCLIA [id number] [place] [address] CO2 [Moles/Vol] 26 mmol/L Normal 22-30 [facility] Comment on above: Order Comment: Speci men Type: BLOOD SPECIMENOrdering Facility: [facility] Address: [address] [place] [address] Performed By: #### 2 4323-8 ####[facility] LABCLIA [id number] [place] [address] Creatinine [Mass/Vol] 0.80 mg/dL Normal 0.58-0.96 [facility] Comment on above: Order Comment: Speci men Type: BLOOD SPECIMENOrdering Facility: [facility] Address: [address] [place] [address] Performed By: #### 2 4323-8 ####[facility] LABCLIA [id number] [place] [address] ESTIMATED GLOMERULAR FILTRATION RATE 94 mL/min/1.73m??? Normal >=60 [facility] Comment on above: Order Comment: Speci men Type: BLOOD SPECIMENOrdering Facility: [facility] Address: [address] [place] [address] Result Comment: Erin mated Glomerular Filtration Rate [...] actual GFR. Performed By: #### 2 4323-8 ####[facility] LABCLIA [id number] [place] [address] Glucose [Mass/Vol] 91 mg/dL Normal 74-99 [facility] Comment on above: Order Comment: Speci men Type: BLOOD SPECIMENOrdering Facility: [facility] Address: [address] [place] [address] Result Comment: The [place] [employer] (ADA) provides guidance for cutoff [...] Standards of Medical Care in Diabetes 2016, [place] [employer]. Diabetes Care. 2016.39(Suppl 1). Performed By: #### 2 4323-8 ####[facility] LABCLIA [id number] [place] [address] Potassium [Moles/Vol] 3.9 mmol/L Normal 3.7-5.1 [facility] Comment on above: Order Comment: Speci men Type: BLOOD SPECIMENOrdering Facility: [facility] Address: [address] [place] [address] Performed By: #### 2 4323-8 ####[facility] LABCLIA [id number] [place] [address] Protein [Mass/Vol] 7.1 g/dL Normal 6.3-8.0 [facility] Comment on above: Order Comment: Speci men Type: BLOOD SPECIMENOrdering Facility: [facility] Address: [address] [place] [address] Performed By: #### 2 4323-8 ####[facility] LABCLIA [id number] [place] [address] Sodium [Moles/Vol] 137 mmol/L Normal 136-144 [facility] Comment on above: Order Comment: Speci men Type: BLOOD SPECIMENOrdering Facility: [facility] Address: [address] [place] [address] Performed By: #### 2 4323-8 ####[facility] LABCLIA [id number] [place] [address] Urea nitrogen [Mass/Vol] 20 mg/dL Normal 7-21 [facility] Comment on above: Order Comment: Speci men Type: BLOOD SPECIMENOrdering Facility: [facility] Address: [address] [place] [address] Performed By: #### 2 4323-8 ####[facility] LABCLIA [id number] [place] [address] Ferritin SerPl-mCncon 2022 Ferritin [Mass/Vol] 26.6 ng/mL Normal 14.7-205.1 [facility] Comment on above: Order Comment: Speci men Type: BLOOD SPECIMENOrdering Facility: [facility] Address: [address] [place] [address] Performed By: #### 5 0190-8, 2131-9, 2275-4, 2283-8 ####[facility] LABCLIA [id number] [place] [address] [place] Folate SerPl-mCncon 12-09-19 Folate [Mass/Vol] 2.6 ng/mL Low >4.7 [facility] Comment on above: Order Comment: Speci men Type: BLOOD SPECIMENOrdering Facility: [facility] Address: [address] [place] [address] Performed By: #### 5 0190-8, 2-9, 6-4, 2283-8 ####[facility] LABCLIA [id number] [place] [address] [place] Iron and Iron binding capaci ty panelon 12-08-2022 Iron [Mass/Vol] 48 ug/dL Normal 41-186 [facility] Comment on above: Order Comment: Speci men Type: BLOOD SPECIMENOrdering Facility: [facility] Address: [address] [place] [address] Performed By: #### 5 0190-8, 9, 2275-08, 2283-12 ####[facility] LABCLIA [id number] [address] [place] Iron binding capacity [Mass/Vol] 382 ug/dL Normal 232-386 [facility] Comment on above: Order Comment: Speci men Type: BLOOD SPECIMENOrdering Facility: [facility] Address: [address] [place] [address] Performed By: #### 5 0190-8, 9, 2275-08, 2283-12 ####[facility] LABCLIA [id number] [address] [place] Iron/TIBC [Molar ratio] 12.6 % Low 15.0-57.0 [facility] Comment on above: Order Comment: Speci men Type: BLOOD SPECIMENOrdering Facility: [facility] Address: [address] [place] [address] Performed By: #### 5 0190-8, 9, 2275-08, 2283-12 ####[facility] LABCLIA [id number] [address] [place] Vit B12 [facility] Cobalamin (Vitamin B12) [Mass/Vol] 336 pg/mL Normal 232-1245 [facility] Comment on above: Order Comment: Speci men Type: BLOOD SPECIMENOrdering Facility: [facility] Address: [address] [place] [address] Performed By: #### 5 0190-8, 9, 2275-08, 2283-12 ####[facility] LABCLIA [id number] [place] [address] [place] CBC AUTO DIFFon 09-24-2022 BASO # 0.1 103/ul Normal 0.0-0.1 [facility] Comment on above: Performed By: #### U AMIC #### [facility] [address] [place] [address] Dr. Manda York Basophils/100 WBC (Bld) 0.6 % Normal 0.2-2.0 [facility] Comment on above: Performed By: #### U AMIC #### [facility] [address] [place] [address] Dr. Manda York EO # 0.1 103/ul Normal 0.0-0.7 [facility] Comment on above: Performed By: #### U AMIC #### [facility] [address] [place] [address] Dr. Manda York Eosinophils/100 WBC (Bld) 0.6 % Critically low 0.9-7.0 [facility] Comment on above: Performed By: #### U AMIC #### [facility] [address] [place] [address] Dr. Manda York Erythrocyte distribution width (RBC) [Ratio] 14.6 % Normal 11.0-15.0 [facility] Comment on above: Performed By: #### U AMIC #### [facility] [address] [place] [address] Dr. Manda York Hematocrit (Bld) [Volume fraction] 43.4 % Normal 36.0-48.0 [facility] Comment on above: Performed By: #### U AMIC #### [facility] [address] [place] [address] Dr. Manda York Hemoglobin (Bld) [Mass/Vol] 13.7 g/dL Normal 12.0-16.0 [facility] Comment on above: Performed By: #### U AMIC #### [facility] [address] [place] [address] Dr. Manda York IG # 0.12 10e3/ul Critically high 0.00-0.03 [facility] Comment on above: Performed By: #### U AMIC #### [facility] [address] [address] [address] Manda York IG % 0.8 % Critically high 0.0-0.5 [facility] Comment on above: Performed By: #### U AMIC #### [facility] [address] [address] [address] Manda York LYMPH # 2.6 103/ul Normal 1.2-3.8 [facility] Comment on above: Performed By: #### U AMIC #### [facility] [address] [place] [address] Dr. Manda York Lymphocytes/100 WBC (Bld) 18.3 % Critically low 20.5-60.0 [facility] Comment on above: Performed By: #### U AMIC #### [facility] [address] [place] [address] Dr. Manda York MANUAL DIFF REQ NO Normal [facility] Comment on above: Performed By: #### U AMIC #### [facility] [address] [place] [address] Dr. Manda York MCH (RBC) [Entitic mass] 29.0 pg Normal 26.7-34.0 [facility] Comment on above: Performed By: #### U AMIC #### [facility] [address] [place] [address] Dr. Manda York MCHC (RBC) [Mass/Vol] 31.6 g/dL Normal 29.9-35.2 [facility] Comment on above: Performed By: #### U AMIC #### [facility] [address] [place] [address] Dr. Manda York MCV (RBC) [Entitic vol] 91.8 fL Normal 81.0-99.0 [facility] Comment on above: Performed By: #### U AMIC #### [facility] [address] [place] [address] Dr. Manda York MONO # 0.7 103/ul Normal 0.3-0.8 [facility] Comment on above: Performed By: #### U AMIC #### [facility] [address] [place] [address] Dr. Manda York Monocytes/100 WBC (Bld) 5.1 % Normal 1.7-12.0 [facility] Comment on above: Performed By: #### U AMIC #### [facility] [address] [place] [address] Dr. Manda York NEUT # 10.6 103/ul Critically high 1.4-6.5 [facility] Comment on above: Performed By: #### U AMIC #### [facility] [address] [place] [address] Dr. Manda York Neutrophils/100 WBC (Bld) 74.6 % Normal 43.0-75.0 [facility] Comment on above: Performed By: #### U AMIC #### [facility] [address] [place] [address] Dr. Manda York Platelet mean volume (Bld) [Entitic vol] 9.4 fL Critically low 9.5-13.5 [facility] Comment on above: Performed By: #### U AMIC #### [facility] [address] [place] [address] Dr. Manda York PLT 307 103/ul Normal 150-450 [facility] Comment on above: Performed By: #### U AMIC #### [facility] [address] [place] [address] Dr. Manda York RBC 4.73 106/ul Normal 4.20-5.40 [facility] Comment on above: Performed By: #### U AMIC #### [facility] [address] [place] [address] Dr. Manda York WBC 14.2 103/ul Critically high 4.0-11.0 [facility] Comment on above: Performed By: #### U AMIC #### [facility] [address] [place] [address] Dr. Manda York FREE T4on 09-24-2022 Free T4 [Mass/Vol] 1.31 ng/dL Normal 0.76-1.46 [facility] Comment on above: Performed By: #### F T4 #### [facility] [address] [place] [address] Dr. Manda York GLYCOHEMOGLOBIN A1Con 2022 ADA RECOMMENDATION SEE BELOW Normal [facility] Comment on above: Result Comment: ADA RECOMMENDED LIMIT 4.0 - 6.0 ADA THERAPEUTIC TARGET < 7.0 ACTION SUGGESTED > 7.0 Performed By: #### A 1C #### [facility] [address] [place] [address] Dr. Manda York Glucose [Mass/Vol] 120 mg/dL Normal [facility] Comment on above: Performed By: #### A 1C #### [facility] [address] [place] [address] Dr. Manda York HbA1c (Bld) [Mass fraction] 5.8 % Normal 4.5-6.2 [facility] Comment on above: Performed By: #### A 1C #### [facility] [address] [place] [address] Dr. Manda York PREG QUANT HCGon 09-24-2022 HCG QUANT <1 Normal [facility] Comment on above: Performed By: #### F T4 #### [facility] [address] [place] [address] Dr. Manda York HCG RANGE SEE BELOW Normal [facility] Comment on above: Result Comment: 5-50 0.2-1 WEEK 50-500 1-2 WEEKS 100-5,000 2-3 WEEKS 500-10,000 3-4 WEEKS 1,000-50,000 4-5 WEEKS 10,000-100,000 5-6 WEEKS 15,000-200,000 6-8 WEEKS 10,000-100,000 2-3 MONTHS Performed By: #### F T4 #### [facility] [address] [place] [address] Dr. Manda York PROTIMEon 09-24-2022 INR Coag (PPP) [Relative time] {INR} Normal [facility] Comment on above: Performed By: #### F T4 #### [facility] [address] [address] [address] Manda York INR GUIDELINES SEE BELOW Normal [facility] Comment on above: Result Comment: SHERRY RED INR: 2.0 - 3.0 CONDITIONS NOT LISTED BELOW 2.5 - 3.5 FOR PROSTHETIC HEART VALVE REPLACEMENT 2.5 - 3.5 RECURRENT THROMBOSIS Performed By: #### F T4 #### [facility] [address] [address] [address] Manda York PT Coag (PPP) [Time] 9.6 s Normal 9.0-11.6 [facility] Comment on above: Performed By: #### F T4 #### [facility] [address] [place] [address] Dr. Manda York PTTon 09-24-2022 aPTT Coag (Bld) [Time] 28.2 s Normal 22.3-36.2 [facility] Comment on above: Performed By: #### F T4 #### [facility] [address] [place] [address] Dr. Manda York TSHon 09-24-2022 TSH 0.300 uIU/mL Critically low 0.358-3.740 [facility] Comment on above: Performed By: #### F T4 #### [facility] [address] [place] [address] Dr. Manda York US PELVIS TRANSVAGon 023 [...] AURORA SHAIKH Date: 2022-09-24 17:50 Normal [facility] PAP ACOG PANEL 2: 30 to 65on 09-18-2022 . . Normal [facility] Comment on above: Result Comment: Perf ormed at: WB Performed By: #### F T4 #### [facility] [address] [address] [address] Manda York Age Gdln ACOG Testing 30-65 Normal [facility] Comment on above: Performed By: #### F T4 #### [facility] [address] [address] [address] Manda York DIAGNOSIS: Comment Normal [facility] Comment on above: Result Comment: NEGA TIVE FOR INTRAEPITHELIAL LESION OR MALIGNANCY. Performed at: [facility] Performed By: #### F T4 #### [facility] [address] [address] [address] Manda York HPV Aptima Negative Normal Negative [facility] Comment on above: Result Comment: This nucleic acid amplification test detects fourteen high-risk HPV types (16,18,31,33,35,39,45,51,52,56,58,59,66,68) without differentiation. Performed at: =G Performed By: #### F T4 #### [facility] [address] [address] [address] Manda York HPV Genotype Reflex Comment Normal [facility] Comment on above: Result Comment: Crit eria not met, HPV Genotype not performed. Performed at: WB Performed By: #### F T4 #### [facility] [address] [address] [address] Manda York Methodology: Comment Normal [facility] Comment on above: Result Comment: This liquid based ThinPrep(R) pap test was screened with the use of an image guided system. Performed at: WB Performed By: #### F T4 #### [facility] [address] [address] [address] Manda York Note: Comment Normal [facility] Comment on above: Result Comment: The [...] WB Performed By: #### F T4 #### [facility] [address] [place], [place] [address] Dr. Manda York Performed by: Comment Normal [facility] Comment on above: Result Comment: Lorena Peters, Data Communications Analyst (ASCP) Performed at: WB Performed By: #### F T4 #### [facility] [address] [place], [place] [address] Dr. Manda York Specimen adequacy: Comment Normal [facility] Comment on above: Result Comment: Sati sfactory for evaluation. Endocervical and/or squamous metaplastic cells (endocervical component) are present. Performed at: WB Performed By: #### F T4 #### [facility] [address] [address] [address] Manda York MG MAMM SCREEN 3D MARK CADon 09-01-2022 MG MAMM SCREEN 3D MARK CAD Patient: JONES HALEY Exam Date: 09/01/2022 : 1980 Gender:F Ordering : DR MADELAINE FERRIS . Admission #: [id number] Family : Order #: [id number] CLICK HERE TO VIEW EXAM RADIOLOGY REPORT [...] stomach cancer at age 56. LOCATION: [facility] BREAST COMPOSITION: Scattered areas fibroglandular density. FINDINGS: [...] M.D. on 09/02/2022 at 12:32 Normal [facility] MRI KNEE RT WO CONon 022 [...] MADELAINE GOMEZ Date: 2022-04-01 08:24 Normal [facility] PNEUMOCOCCAL IGG ABS, 23 SER OTYPESon 03-21-2022 Pneumococcal Interpretation See Note [facility] S. pneumoniae 1 IgG (S) [Mass/Vol] 0.27 ug/mL [facility] S. pneumoniae 12 IgG (S) [Mass/Vol] 0.08 ug/mL [facility] S. pneumoniae 14 IgG (S) [Mass/Vol] 0.19 ug/mL [facility] S. pneumoniae 17 IgG (S) [Mass/Vol] 1.72 ug/mL [facility] S. pneumoniae 19 IgG (S) [Mass/Vol] 1.52 ug/mL [facility] S. pneumoniae 2 IgG (S) [Mass/Vol] 0.44 ug/mL [facility] S. pneumoniae 20 IgG (S) [Mass/Vol] 1.53 ug/mL [facility] S. pneumoniae 22 IgG (S) [Mass/Vol] 0.99 ug/mL [facility] S. pneumoniae 23 IgG (S) [Mass/Vol] 0.14 ug/mL [facility] S. pneumoniae 3 IgG (S) [Mass/Vol] 0.36 ug/mL [facility] S. pneumoniae 34 IgG (S) [Mass/Vol] 5.77 ug/mL [facility] S. pneumoniae 4 IgG (S) [Mass/Vol] 0.06 ug/mL [facility] S. pneumoniae 43 IgG (S) [Mass/Vol] 0.93 ug/mL [facility] S. pneumoniae 5 IgG (S) [Mass/Vol] 0.89 ug/mL [facility] S. pneumoniae 8 IgG (S) [Mass/Vol] 0.58 ug/mL [facility] S. pneumoniae 9 IgG (S) [Mass/Vol] 0.4 ug/mL [facility] S. pneumoniae Irish type 15B IgG (S) [Mass/Vol] 8.27 ug/mL [facility] S. pneumoniae Irish type 18C IgG (S) [Mass/Vol] 0.39 ug/mL [facility] S. pneumoniae Irish type 19A IgG (S) [Mass/Vol] 17.72 ug/mL [facility] S. pneumoniae Irish type 33F IgG (S) [Mass/Vol] 3.04 ug/mL [facility] S. pneumoniae Irish type 6B IgG (S) [Mass/Vol] 0.82 ug/mL [facility] S. pneumoniae Irish type 7F IgG (S) [Mass/Vol] 0.34 ug/mL [facility] S. pneumoniae Irish type 9V IgG (S) [Mass/Vol] 0.78 ug/mL [facility] XR KNEE RT 4V or [...] by: KRISTINA GARRETT Date: 2022-03-21 16:47 Normal [facility] DIPHTHER/TETANUS ABon 2021 C. diphtheriae IgG Qn (S) 0.1 IU/mL [facility] C. tetani toxoid IgG IA Qn 1 IU/mL [facility] IGA BLDon 03-18-2022 IgA [Mass/Vol] 182 mg/dL 70 - 400 mg/dL [facility] IGE BLDon 03-18-2022 IgE Qn 12.3 kU/l <114.0 kU/l [facility] IGGon 03-18-2022 IgG [Mass/Vol] 618 mg/dL Low 700 - 1,600 mg/dL [facility] IGMon 03-18-2022 IgM [Mass/Vol] 514 mg/dL High 40 - 230 mg/dL [facility] Immunodeficiency panel FC (B ld)on 03-18-2022 CD3 cells (Bld) [#/Vol] 2841 cells/uL High 958 - 2,388 cells/uL [facility] CD3 cells/100 cells (Bld) 81 % 60 - 89 % [facility] CD3+CD4+ (T4 helper) cells (Bld) [#/Vol] 1621 cells/uL 533 - 1,674 cells/uL [facility] CD3+CD4+ (T4 helper) cells/100 cells (Bld) 46 % 34 - 61 % [facility] CD3+CD4+ (T4 helper) cells/CD3+CD8+ (T8 suppressor cells) cells (Bld) [# ratio] 1.55 % 1.10 - 3.25 [facility] CD3+CD8+ (T8 suppressor cells) cells (Bld) [#/Vol] 1049 cells/uL High 175 - 958 cells/uL [facility] CD3+CD8+ (T8 suppressor cells) cells/100 cells (Bld) 30 % 10 - 41 % [facility] CD3-CD16+CD56+ (Natural killer) cells (Bld) [#/Vol] 193 cells/uL 102 - 565 cells/uL [facility] CD3-CD16+CD56+ (Natural killer) cells/100 cells (Bld) 5 % 5 - 25 % [facility] CD3-CD19+ cells (Bld) [#/Vol] 475 cells/uL 75 - 660 cells/uL [facility] CD3-CD19+ cells/100 cells (Bld) 13 % 5 - 22 % [facility] CBC W Auto Differential pane l (Bld)on 03-17-2022 Basophils (Bld) [#/Vol] 0.07 10*3/uL <0.11 k/uL [facility] Basophils/100 WBC (Bld) 0.6 % [facility] Differential cell count method Nom (Bld) Auto [facility] Eosinophils (Bld) [#/Vol] 0.18 10*3/uL <0.46 k/uL [facility] Eosinophils/100 WBC (Bld) 1.6 % [facility] Erythrocyte distribution width (RBC) [Ratio] 14.6 % 11.5 - 15.0 % [facility] Hematocrit (Bld) [Volume fraction] 40.5 % 36.0 - 46.0 % [facility] Hemoglobin (Bld) [Mass/Vol] 13.0 g/dL 11.5 - 15.5 g/dL [facility] Immature granulocytes (Bld) [#/Vol] 0.06 10*3/uL <0.10 k/uL [facility] Immature granulocytes/100 WBC (Bld) 0.5 % [facility] Lymphocytes (Bld) [#/Vol] 2.97 10*3/uL 1.00 - 4.00 k/uL [facility] Lymphocytes/100 WBC (Bld) 26.9 % [facility] MCH (RBC) [Entitic mass] 28.4 pg 26.0 - 34.0 pg [facility] MCHC (RBC) [Mass/Vol] 32.1 g/dL 30.5 - 36.0 g/dL [facility] MCV (RBC) [Entitic vol] 88.4 fL 80.0 - 100.0 fL [facility] Monocytes (Bld) [#/Vol] 0.79 10*3/uL <0.87 k/uL [facility] Monocytes/100 WBC (Bld) 7.2 % [facility] Neutrophils (Bld) [#/Vol] 6.97 10*3/uL 1.45 - 7.50 k/uL [facility] [facility] Neutrophils/100 WBC (Bld) 63.2 % [facility] Nucleated RBC (Bld) [#/Vol] <0.01 k/uL [facility] Nucleated RBC/100 WBC (Bld) [Ratio] 0.0 /100 WBC [facility] Platelet mean volume (Bld) [Entitic vol] 9.9 fL 9.0 - 12.7 fL [facility] Platelets (Bld) [#/Vol] 314 10*3/uL 150 - 400 k/uL [facility] RBC (Bld) [#/Vol] 4.58 10*6/uL 3.90 - 5.2 0 m/uL [facility] WBC (Bld) [#/Vol] 11.04 10*3/uL High 3.70 - 11 .00 k/uL [facility] ECHOCARDIO M/2D COMPLETEon 1 ECHOCARDIO M/2D COMPLETE Patient: JONES HALEY Exam Date: 03/12/2022 : 1980 Gender:F Ordering : DR MADELAINE FERRIS . Admission #: [id number] Family : Order #: [id number] CLICK HERE TO VIEW EXAM ECHOCARDIOGRAM REPORT [...] M.D. on 03/16/2022 at 16:47 Normal [facility] INSULINon 03-11-2022 Insulin 17.8 uIU/mL Normal 2.6-24.9 [facility] Comment on above: Performed By: #### C BC #### [facility] [address] [place] [address] Dr. Manda York CBC AUTO DIFFon 03-09-2022 BASO # 0.1 103/ul Normal 0.0-0.1 [facility] Comment on above: Performed By: #### C BC #### [facility] [address] [place] [address] Dr. Manda York Basophils/100 WBC (Bld) 0.4 % Normal 0.2-2.0 [facility] Comment on above: Performed By: #### C BC #### [facility] [address] [place] [address] Dr. Manda York EO # 0.2 103/ul Normal 0.0-0.7 [facility] Comment on above: Performed By: #### C BC #### [facility] [address] [place] [address] Dr. Manda York Eosinophils/100 WBC (Bld) 1.2 % Normal 0.9-7.0 [facility] Comment on above: Performed By: #### C BC #### [facility] [address] [place] [address] Dr. Manda York Erythrocyte distribution width (RBC) [Ratio] 14.6 % Normal 11.0-15.0 [facility] Comment on above: Performed By: #### C BC #### [facility] [address] [place] [address] Dr. Manda York Hematocrit (Bld) [Volume fraction] 39.2 % Normal 36.0-48.0 [facility] Comment on above: Performed By: #### C BC #### [facility] [address] [place] [address] Dr. Manda York Hemoglobin (Bld) [Mass/Vol] 12.7 g/dL Normal 12.0-16.0 [facility] Comment on above: Performed By: #### C BC #### [facility] [address] [place] [address] Dr. Manda York IG # 0.06 10e3/ul Critically high 0.00-0.03 [facility] Comment on above: Performed By: #### C BC #### [facility] [address] [place] [address] Dr. Manda York IG % 0.5 % Normal 0.0-0.5 [facility] Comment on above: Performed By: #### C BC #### [facility] [address] [place] [address] Dr. Manda York LYMPH # 3.7 103/ul Normal 1.2-3.8 [facility] Comment on above: Performed By: #### C BC #### [facility] [address] [place] [address] Dr. Manda York Lymphocytes/100 WBC (Bld) 31.0 % Normal 20.5-60.0 [facility] Comment on above: Performed By: #### C BC #### [facility] [address] [place] [address] Dr. Manda York MANUAL DIFF REQ NO Normal [facility] Comment on above: Performed By: #### C BC #### [facility] [address] [place] [address] Dr. Manda York MCH (RBC) [Entitic mass] 28.9 pg Normal 26.7-34.0 [facility] Comment on above: Performed By: #### C BC #### [facility] [address] [place] [address] Dr. Manda York MCHC (RBC) [Mass/Vol] 32.4 g/dL Normal 29.9-35.2 [facility] Comment on above: Performed By: #### C BC #### [facility] [address] [place] [address] Dr. Manda York MCV (RBC) [Entitic vol] 89.1 fL Normal 81.0-99.0 [facility] Comment on above: Performed By: #### C BC #### [facility] [address] [place] [address] Dr. Manda York MONO # 0.7 103/ul Normal 0.3-0.8 [facility] Comment on above: Performed By: #### C BC #### [facility] [address] [place] [address] Dr. Manda York Monocytes/100 WBC (Bld) 5.8 % Normal 1.7-12.0 [facility] Comment on above: Performed By: #### C BC #### [facility] [address] [place] [address] Dr. Manda York NEUT # 7.3 103/ul Critically high 1.4-6.[address] [facility] Comment on above: Performed By: #### C BC #### [facility] [address] [place] [address] Dr. Manda York Neutrophils/100 WBC (Bld) 61.1 % Normal 43.0-75.0 [facility] Comment on above: Performed By: #### C BC #### [facility] [address] [address] [address] Manda York Platelet mean volume (Bld) [Entitic vol] 9.7 fL Normal 9.5-13.5 [facility] Comment on above: Performed By: #### C BC #### [facility] [address] [place] [address] Dr. Manda York PLT 297 103/ul Normal 150-450 [facility] Comment on above: Performed By: #### C BC #### [facility] [address] [address] [address] Manda York RBC 4.40 106/ul Normal 4.20-5.40 [facility] Comment on above: Performed By: #### C BC #### [facility] [address] [place] [address] Dr. Manda York WBC 12.0 103/ul Critically high 4.0-11.[address] [facility] Comment on above: Performed By: #### C BC #### [facility] [address] [place] [address] Dr. Manda York FREE THYROXINE INDEX T7on FTI 3.81 Normal 1.30-4.50 [facility] Comment on above: Performed By: #### U AMIC #### [facility] [address] [place] [address] Dr. Manda York T3U 34.0 % Normal 30.0-39.0 [facility] Comment on above: Performed By: #### U AMIC #### [facility] [address] [place] [address] Dr. Manda York T4 [Mass/Vol] 11.20 ug/dL Normal 4.80-13.90 [facility] Comment on above: Performed By: #### U AMIC #### [facility] [address] [place] [address] Dr. Manda York GLYCOHEMOGLOBIN A1Con 2021 ADA RECOMMENDATION SEE BELOW Normal The [facility] Comment on above: Result Comment: ADA RECOMMENDED LIMIT 4.0 - 6.0 ADA THERAPEUTIC TARGET < 7.0 ACTION SUGGESTED > 7.0 Performed By: #### S LEANN MELOC #### [facility] [address] [address] [address] Manda York Glucose [Mass/Vol] 117 mg/dL Normal [facility] Comment on above: Performed By: #### S LEANN MELOC #### [facility] [address] [address] [address] Manda York HbA1c (Bld) [Mass fraction] 5.7 % Normal 4.5-6.2 [facility] Comment on above: Performed By: #### S LEANN MELOC #### [facility] [address] [address] [address] Manda York IRONon 03-09-2022 Iron [Mass/Vol] 61.0 ug/dL Normal 50.0-170.0 [facility] Comment on above: Performed By: #### C BC #### [facility] [address] [address] [address] Manda York LIPID PROFILEon 03-09-2022 CHOL-HDL RATIO NORM SEE BELOW Normal [facility] Comment on above: Result Comment: 3.3 - 4.4 LOW RISK 4.4 - 7.1 AVERAGE RISK 7.1 - 11.0 MODERATE RISK >11.0 HIGH RISK Performed By: #### U AMIC #### [facility] [address] [address] [address] Manda York Cholesterol [Mass/Vol] 260 mg/dL Critically high <=200 [facility] Comment on above: Performed By: #### U AMIC #### [facility] [address] [address] [address] Manda York Cholesterol in HDL [Mass/Vol] 38 mg/dL Critically low 40-60 [facility] Comment on above: Performed By: #### U AMIC #### [facility] [address] [address] [address] Manda York Cholesterol in LDL [Mass/Vol] 170.8 mg/dL Normal [facility] Comment on above: Performed By: #### U AMIC #### [facility] [address] [address] [address] Manda York Cholesterol.total/Cho lesterol in HDL [Mass ratio] 6.8 {ratio} Normal [facility] Comment on above: Performed By: #### U AMIC #### [facility] [address] [address] [address] Manda York HDL NORMAL > or = 60 mg/dl - LO W CARDIOVASCULAR RISK <40 mg/dl - HIGH CARDIOVASCULAR RISK Normal [facility] Comment on above: Performed By: #### U AMIC #### [facility] [address] [address] [address] Manda York LDL CALC NORMAL SEE BELOW Normal [facility] Comment on above: Result Comment: <100 mg/dl OPTIMAL 100 - 129 mg/dl NEAR OR ABOVE OPTIMAL 130 - 159 mg/dl BORDERLINE HIGH 160 - 189 mg/dl HIGH >190 mg/dl VERY HIGH Performed By: #### U AMIC #### [facility] [address] [address] [address] Manda York Triglyceride [Mass/Vol] 256 mg/dL Critically high <=150 [facility] Comment on above: Performed By: #### U AMIC #### [facility] [address] [address] [address] Manda York VLDL CALC 51.2 mg/dL Normal [facility] Comment on above: Performed By: #### U AMIC #### [facility] [address] [address] [address] Manda York PROF 14(COMP METB)on 022 Albumin [Mass/Vol] 3.8 g/dL Normal 3.4-5.0 [facility] Comment on above: Performed By: #### U AMIC #### [facility] [address] [address] [address] Manda York Albumin/Globulin [Mass ratio] 1.0 {ratio} Normal [facility] Comment on above: Performed By: #### U AMIC #### [facility] [address] [address] [address] Manda York ALP [Catalytic activity/Vol] 66 U/L Normal 46-116 [facility] Comment on above: Performed By: #### U AMIC #### [facility] [address] [address] [address] Manda York ALT [Catalytic activity/Vol] 27 U/L Normal 14-59 [facility] Comment on above: Performed By: #### U AMIC #### [facility] [address] [address] [address] Manda York Anion gap [Moles/Vol] 11.8 mmol/L Normal [facility] Comment on above: Performed By: #### U AMIC #### [facility] [address] [address] [address] Manda York AST [Catalytic activity/Vol] 9 U/L Critically low 15-37 [facility] Comment on above: Performed By: #### U AMIC #### [facility] [address] [address] [address] Manda York Bilirubin [Mass/Vol] 0.2 mg/dL Normal 0.2-1.0 [facility] Comment on above: Performed By: #### U AMIC #### [facility] [address] [address] [address] Manda York Calcium [Mass/Vol] 9.1 mg/dL Normal 8.5-10.1 [facility] Comment on above: Performed By: #### U AMIC #### [facility] [address] [address] [address] Manda York Chloride [Moles/Vol] 101 mmol/L Normal 98-107 [facility] Comment on above: Performed By: #### U AMIC #### [facility] [address] [address] [address] Manda York CO2 [Moles/Vol] 26.1 mmol/L Normal 21.0-32.[address] [facility] Comment on above: Performed By: #### U AMIC #### [facility] [address] [address] [address] Manda York Creatinine [Mass/Vol] 0.80 mg/dL Normal 0.55-1.02 [facility] Comment on above: Performed By: #### U AMIC #### [facility] [address] [address] [address] Manda York EGFR-AF CAMBODIAN >60 Normal >=[address] [facility] Comment on above: Performed By: #### U AMIC #### [facility] [address] [address] [address] Manda York EGFR-NON AF CAMBODIAN >60 Normal >=60 [facility] Comment on above: Performed By: #### U AMIC #### [facility] [address] [address] [address] Manda York Globulin (S) [Mass/Vol] 3.8 g/dL Normal [facility] Comment on above: Performed By: #### U AMIC #### [facility] [address] [address] [address] Manda York Glucose [Mass/Vol] 93 mg/dL Normal 74-106 [facility] Comment on above: Performed By: #### U AMIC #### [facility] [address] [address] [address] Manda York Potassium [Moles/Vol] 3.9 mmol/L Normal 3.5-5.1 [facility] Comment on above: Performed By: #### U AMIC #### [facility] [address] [address] [address] Manda York Protein [Mass/Vol] 7.6 g/dL Normal 6.4-8.2 [facility] Comment on above: Performed By: #### U AMIC #### [facility] [address] [address] [address] Manda York Sodium [Moles/Vol] 135 mmol/L Critically low 136-145 [facility] Comment on above: Performed By: #### U AMIC #### [facility] [address] [address] [address] Manda York Urea nitrogen [Mass/Vol] 10.0 mg/dL Normal 7.0-18.0 [facility] Comment on above: Performed By: #### U AMIC #### [facility] [address] [place], [place] [address] Dr. Manda York Urea nitrogen/Creatinine [Mass ratio] 12.5 mg/mg Normal [facility] Comment on above: Performed By: #### U AMIC #### [facility] [address] [place], [place] [address] Dr. Manda York TSHon 03-09-2022 TSH 0.610 uIU/mL Normal 0.358-3.740 [facility] Comment on above: Performed By: #### U AMIC #### [facility] [address] [address] [address] Manda York B2 MICROGLOBULIN Bon 022 Bpbp-8-Ifrulhqrhrxlm [Mass/Vol] 1.8 ug/mL 0.8 - 2.4 mg/L [facility] FERRITIN BLDon 03-05-2022 Ferritin [Mass/Vol] 33.2 ng/mL 14.7 - 2 05.1 ng/mL [facility] FOLATE SERUMon 03-05-2022 Folate [Mass/Vol] 6.6 ng/mL >4.7 ng/mL [facility] Iron and Iron binding capaci ty panelon 03-05-2022 Iron [Mass/Vol] 49 ug/dL 41 - 186 ug/dL [facility] Iron binding capacity [Mass/Vol] 392 ug/dL High 232 - 386 ug/dL [facility] Iron/TIBC [Molar ratio] 12.5 % Low 15.0 - 57.0 % [facility] CBC W Auto Differential pane l (Bld)on 03-04-2022 Basophils (Bld) [#/Vol] 0.07 10*3/uL <0.11 k/uL [facility] Basophils/100 WBC (Bld) 0.6 % [facility] Differential cell count method Nom (Bld) Auto [facility] Eosinophils (Bld) [#/Vol] 0.19 10*3/uL <0.46 k/uL [facility] Eosinophils/100 WBC (Bld) 1.7 % [facility] Erythrocyte distribution width (RBC) [Ratio] 14.7 % 11.5 - 15.0 % [facility] Hematocrit (Bld) [Volume fraction] 40.0 % 36.0 - 46.0 % [facility] Hemoglobin (Bld) [Mass/Vol] 13.0 g/dL 11.5 - 15.5 g/dL [facility] Immature granulocytes (Bld) [#/Vol] 0.07 10*3/uL <0.10 k/uL [facility] Immature granulocytes/100 WBC (Bld) 0.6 % [facility] Lymphocytes (Bld) [#/Vol] 3.31 10*3/uL 1.00 - 4.00 k/uL [facility] Lymphocytes/100 WBC (Bld) 30.2 % [facility] MCH (RBC) [Entitic mass] 28.9 pg 26.0 - 34.0 pg [facility] MCHC (RBC) [Mass/Vol] 32.5 g/dL 30.5 - 36.0 g/dL [facility] MCV (RBC) [Entitic vol] 88.9 fL 80.0 - 100.0 fL [facility] Monocytes (Bld) [#/Vol] 0.70 10*3/uL <0.87 k/uL [facility] Monocytes/100 WBC (Bld) 6.4 % [facility] Neutrophils (Bld) [#/Vol] 6.63 10*3/uL 1.45 - 7.50 k/uL [facility] Neutrophils/100 WBC (Bld) 60.5 % [facility] Nucleated RBC (Bld) [#/Vol] <0.01 k/uL [facility] Nucleated RBC/100 WBC (Bld) [Ratio] 0.0 /100 WBC [facility] Platelet mean volume (Bld) [Entitic vol] 9.6 fL 9.0 - 12.7 fL [facility] Platelets (Bld) [#/Vol] 355 10*3/uL 150 - 400 k/uL [facility] RBC (Bld) [#/Vol] 4.50 10*6/uL 3.90 - 5.2 0 m/uL [facility] WBC (Bld) [#/Vol] 10.97 10*3/uL 3.70 - 11 .00 k/uL [facility] Calcium.ionized [Moles/Vol]o n 03-04-2022 Calcium.ionized (Bld) [Mass/Vol] 1.26 mmol/L 1.08 - 1.30 mmol/L [facility] Calcium.ionized adjusted to pH 7.4 (Bld) [Moles/Vol] 1.25 mmol/L 1.08 - 1.30 mmol/L [facility] Comprehensive metabolic 2000 panelon 03-04-2022 Albumin [Mass/Vol] 4.3 g/dL 3.9 - 4.9 g/dL [facility] ALP [Catalytic activity/Vol] 70 U/L 34 - 123 U/L [facility] ALT [Catalytic activity/Vol] 26 U/L 7 - 38 U/L [facility] Anion gap [Moles/Vol] 7 mmol/L Low 9 - 18 mmol/L [facility] AST [Catalytic activity/Vol] 12 U/L Low 13 - 35 U/L [facility] Bilirubin [Mass/Vol] 0.2 mg/dL 0.2 - 1 .3 mg/dL [facility] Calcium [Mass/Vol] 9.3 mg/dL 8.5 - 10. 2 mg/dL [facility] Chloride [Moles/Vol] 103 mmol/L 97 - 10 5 mmol/L [facility] CO2 [Moles/Vol] 28 mmol/L 22 - 30 mmol/L [facility] Creatinine [Mass/Vol] 0.69 mg/dL 0.58 - 0.96 mg/dL [facility] Estimated Glomerular Filtration Rate 112 mL/min/1.73m >=60 mL/min/1.73m [facility] Glucose [Mass/Vol] 100 mg/dL High 74 - 99 mg/dL [facility] Potassium [Moles/Vol] 3.9 mmol/L 3.7 - 5.1 mmol/L [facility] Protein [Mass/Vol] 7.0 g/dL 6.3 - 8.0 g/dL [facility] Sodium [Moles/Vol] 138 mmol/L 136 - 144 mmol/L [facility] Urea nitrogen [Mass/Vol] 12 mg/dL 7 - 21 mg/dL [facility] LD LACTATE DEHYDROon 022 LDH [Catalytic activity/Vol] 135 U/L 135 - 214 U/L [facility] PHOSPHORUS INORGANICon 03-04 Phosphate [Mass/Vol] 3.2 mg/dL 2.7 - 4 .8 mg/dL [facility] URIC ACID BLOODon 03-04-2022 Urate [Mass/Vol] 5.2 mg/dL 2.5 - 6.6 mg/dL [facility] IMMUNOGLOBULINS IGA/IGM/IGG/ IGE QUANTITAon 02-20-2022 Immunoglobulin A, Qn, Serum 189 mg/dL Normal 87-352 [facility] Comment on above: Result Comment: Perf ormed at: CB Performed By: #### LEANN PATRICKC #### [facility] [address] [address] [address] Manda York Immunoglobulin E, Total 10 IU/mL Normal 6-495 [facility] Comment on above: Result Comment: Perf ormed at: BN Performed By: #### S LEANN MELOC #### [facility] [address] [address] [address] Manda York Immunoglobulin G, Qn, Serum 598 mg/dL Normal 586-1602 [facility] Comment on above: Result Comment: Perf ormed at: CB Performed By: #### LEANN PATRICKC #### [facility] [address] [address] [address] Manda York Immunoglobulin M, Qn, Serum 493 mg/dL Critically high 26-217 [facility] Comment on above: Result Comment: Perf ormed at: CB Performed By: #### LEANN PATRICKC #### [facility] [address] [address] [address] Manda York CHRISTIAN by IFAon 02-19-2022 Antinuclear Antibodies, IFA Negative Normal [facility] Comment on above: Result Comment: Nega tive <1:80 Borderline 1:80 Positive >1:80 ICAP nomenclature: AC-0 For more information about Hep-2 cell patterns use ANApatterns.org, the official website for the International Consensus on Antinuclear Antibody (CHRISTIAN) Patterns (ICAP). Performed By: #### LEANN PATRICKC #### [facility] [address] [place] [address] Dr. Manda York THYROID ANTIBODIESon 022 Thyroglobulin Antibody <1.0 Normal 0.0-0.9 [facility] Comment on above: Result Comment: Thyr oglobulin Antibody measured by [facility] [place] Methodology Performed By: #### F T4 #### [facility] [address] [address] [address] Manda York Thyroid Peroxidase (TPO) Ab <8 Normal 0-34 [facility] Comment on above: Performed By: #### F T4 #### [facility] [address] [address] [address] Manda York PROTEIN ELECTROPHERESISon Albumin [Mass/Vol] 3.2 g/dL Normal 2.9-4.4 [facility] Comment on above: Performed By: #### F T4 #### [facility] [address] [place] [address] Dr. Manda York Albumin/Globulin [Mass ratio] 1.0 {ratio} Normal 0.7-1.7 [facility] Comment on above: Performed By: #### F T4 #### [facility] [address] [place] [address] Dr. Manda York Ichkx-9-Iidqitpk 0.2 g/dL Normal 0.0-0.[address] [facility] Comment on above: Performed By: #### F T4 #### [facility] [address] [place] [address] Dr. Manda York Hfnch-9-Dnqoixsz 0.9 g/dL Normal 0.4-1.[address] [facility] Comment on above: Performed By: #### F T4 #### [facility] [address] [place] [address] Dr. Manda York Beta Globulin 1.2 g/dL Normal 0.7-1.[address] [facility] Comment on above: Performed By: #### F T4 #### [facility] [address] [place] [address] Dr. Manda York Gamma Globulin 0.9 g/dL Normal 0.4-1.8 [facility] Comment on above: Performed By: #### F T4 #### [facility] [address] [place] [address] Dr. Manda York Globulin (S) [Mass/Vol] 3.2 g/dL Normal 2.2-3.9 [facility] Comment on above: Performed By: #### F T4 #### [facility] [address] [address] [address] Manda York M-Jose De Jesus Not Observed Normal Not Observed [facility] Comment on above: Performed By: #### F T4 #### [facility] [address] [address] [address] Manda York PDF . Normal [facility] Comment on above: Performed By: #### F T4 #### [facility] [address] [address] [address] Manda York Please note: Comment Normal [facility] Comment on above: Result Comment: Prot ein electrophoresis scan will follow via computer, mail, or court attendant delivery. Performed By: #### F T4 #### [facility] [address] [place] [address] Dr. Manda York Protein [Mass/Vol] 6.4 g/dL Normal 6.0-8.5 [facility] Comment on above: Performed By: #### F T4 #### [facility] [address] [place] [address] Dr. Manda York SLE PROFILE Aon 02-16-2022 Anti-DNA (DS) Ab Qn 9 IU/mL Normal 0-9 [facility] Comment on above: Result Comment: Nega tive <5 Equivocal 5 - 9 Positive >9 Performed By: #### S LEANN MELOC #### [facility] [address] [place] [address] Dr. Manda York Antichromatin Antibodies <0.2 Normal 0.0-0.9 [facility] Comment on above: Performed By: #### S LEANN MELOC #### [facility] [address] [place] [address] Dr. Manda York RA Latex Turbid. <10.0 Normal <14.[address] [facility] Comment on above: Performed By: #### S LEANN MELOC #### [facility] [address] [place] [address] Dr. Manda York HOSE TESTER Antibodies <0.2 Normal 0.0-0.9 [facility] Comment on above: Performed By: #### S LEANN MELOC #### [facility] [address] [place] [address] Dr. Manda York Sjogren'tye Anti-SS-A <0.2 Normal 0.0-0.9 [facility] Comment on above: Performed By: #### S LEANN MELOC #### [facility] [address] [place] [address] Dr. Manda Solorzanoogryaniv'tye Anti-SS-B <0.2 Normal 0.0-0.9 [facility] Comment on above: Performed By: #### S LEANN MELOC #### [facility] [address] [place] [address] Dr. Manda York Schneider Antibodies <0.2 Normal 0.0-0.[address] [facility] Comment on above: Performed By: #### S LEANN MELOC #### [facility] [address] [place] [address] Dr. Manda York ANTISTREPTOLYSIN O AB (ASO)o n 02-15-2022 Antistreptolysin O Ab 49.6 IU/mL Normal 0.0-200.0 [facility] Comment on above: Performed By: #### A SOAB #### [facility] [address] [place] [address] Dr. Manda York MICROALBUMIN URINEon 022 Albumin, Urine <3.0 Normal Not Estab. [facility] Comment on above: Result Comment: Ve rified by repeat analysis Performed By: #### C BC #### [facility] [address] [place] [address] Dr. Manda York T4, T3U, FTI LABCORPon 02-15 Free Thyroxine Index 2.6 Normal 1.2-4.9 The [facility] Comment on above: Performed By: #### S LEANN MELOC #### [facility] [address] [place] [address] Dr. Manda York T3 Uptake 26 % Normal 24-39 The [facility] Comment on above: Performed By: #### S LUIGI MELO #### [facility] [address] [place] [address] Dr. Manda York T4 [Mass/Vol] 9.9 ug/dL Normal 4.5-12.0 [facility] Comment on above: Performed By: #### S LEANN MELOC #### [facility] [address] [place] [address] Dr. Manda York CBC AUTO DIFFon 02-14-2022 BASO # 0.1 103/ul Normal 0.0-0.1 [facility] Comment on above: Performed By: #### U AMIC #### [facility] [address] [place] [address] Dr. Manda York Basophils/100 WBC (Bld) 0.6 % Normal 0.2-2.0 [facility] Comment on above: Performed By: #### U AMIC #### [facility] [address] [place] [address] Dr. Manda York EO # 0.3 103/ul Normal 0.0-0.7 [facility] Comment on above: Performed By: #### U AMIC #### [facility] [address] [place] [address] Dr. Manda York Eosinophils/100 WBC (Bld) 3.4 % Normal 0.9-7.0 [facility] Comment on above: Performed By: #### U AMIC #### [facility] [address] [place] [address] Dr. Manda York Erythrocyte distribution width (RBC) [Ratio] 14.6 % Normal 11.0-15.0 [facility] Comment on above: Performed By: #### U AMIC #### [facility] [address] [place] [address] Dr. Manda York Hematocrit (Bld) [Volume fraction] 39.1 % Normal 36.0-48.0 [facility] Comment on above: Performed By: #### U AMIC #### [facility] [address] [place] [address] Dr. Manda York Hemoglobin (Bld) [Mass/Vol] 12.4 g/dL Normal 12.0-16.0 [facility] Comment on above: Performed By: #### U AMIC #### [facility] [address] [place] [address] Dr. Manda York IG # 0.03 10e3/ul Normal 0.00-0.03 [facility] Comment on above: Performed By: #### U AMIC #### [facility] [address] [place] [address] Dr. Manda York IG % 0.3 % Normal 0.0-0.5 [facility] Comment on above: Performed By: #### U AMIC #### [facility] [address] [place] [address] Dr. Manda York LYMPH # 3.6 103/ul Normal 1.2-3.8 [facility] Comment on above: Performed By: #### U AMIC #### [facility] [address] [place] [address] Dr. Manda York Lymphocytes/100 WBC (Bld) 39.9 % Normal 20.5-60.0 [facility] Comment on above: Performed By: #### U AMIC #### [facility] [address] [place] [address] Dr. Manda York MANUAL DIFF REQ NO Normal [facility] Comment on above: Performed By: #### U AMIC #### [facility] [address] [place] [address] Dr. Manda York MCH (RBC) [Entitic mass] 28.4 pg Normal 26.7-34.0 [facility] Comment on above: Performed By: #### U AMIC #### [facility] [address] [place] [address] Dr. Manda York MCHC (RBC) [Mass/Vol] 31.7 g/dL Normal 29.9-35.2 [facility] Comment on above: Performed By: #### U AMIC #### [facility] [address] [place] [address] Dr. Manda York MCV (RBC) [Entitic vol] 89.7 fL Normal 81.0-99.0 [facility] Comment on above: Performed By: #### U AMIC #### [facility] [address] [place] [address] Dr. Manda York MONO # 0.7 103/ul Normal 0.3-0.8 [facility] Comment on above: Performed By: #### U AMIC #### [facility] [address] [place] [address] Dr. Manda York Monocytes/100 WBC (Bld) 7.3 % Normal 1.7-12.0 [facility] Comment on above: Performed By: #### U AMIC #### [facility] [address] [place] [address] Dr. Manda York NEUT # 4.4 103/ul Normal 1.4-6.5 [facility] Comment on above: Performed By: #### U AMIC #### [facility] [address] [place] [address] Dr. Manda York Neutrophils/100 WBC (Bld) 48.5 % Normal 43.0-75.0 [facility] Comment on above: Performed By: #### U AMIC #### [facility] [address] [place] [address] Dr. Manda York Platelet mean volume (Bld) [Entitic vol] 10.1 fL Normal 9.5-13.5 [facility] Comment on above: Performed By: #### U AMIC #### [facility] [address] [place] [address] Dr. Manda York PLT 310 103/ul Normal 150-450 The [facility] Comment on above: Performed By: #### U AMIC #### [facility] [address] [place] [address] Dr. Manda York RBC 4.36 106/ul Normal 4.20-5.40 The [facility] Comment on above: Performed By: #### U AMIC #### [facility] [address] [place] [address] Dr. Manda York WBC 9.0 103/ul Normal 4.0-11.0 The [facility] Comment on above: Performed By: #### U AMIC #### [facility] [address] [place] [address] Dr. Manda York CRPon 02-14-2022 CRP [Mass/Vol] mg/L Normal <=1.0 [facility] Comment on above: Performed By: #### U AMIC #### [facility] [address] [place] [address] Dr. Manda York CULTURE URINEon 02-14-2022 CULTURE URINE Culture Observations : LIGHT GROWTH OF MIXED GENITAL AMBER. NO POTENTIAL PATHOGENS SEEN. Normal [facility] Comment on above: Performed By: #### C BC #### [facility] [address] [place] [address] Dr. Manda York PROF 14(COMP METB)on 022 Albumin [Mass/Vol] 3.5 g/dL Normal 3.4-5.0 [facility] Comment on above: Performed By: #### U AMIC #### [facility] [address] [place] [address] Dr. Manda York Albumin/Globulin [Mass ratio] 1.0 {ratio} Normal [facility] Comment on above: Performed By: #### U AMIC #### [facility] [address] [place] [address] Dr. Manda York ALP [Catalytic activity/Vol] 71 U/L Normal 46-116 The [facility] Comment on above: Performed By: #### U AMIC #### [facility] [address] [place] [address] Dr. Mnada York ALT [Catalytic activity/Vol] 46 U/L Normal 14-59 [facility] Comment on above: Performed By: #### U AMIC #### [facility] [address] [place] [address] Dr. Manda York Anion gap [Moles/Vol] 11.6 mmol/L Normal [facility] Comment on above: Performed By: #### U AMIC #### [facility] [address] [place] [address] Dr. Manda York AST [Catalytic activity/Vol] 15 U/L Normal 15-37 [facility] Comment on above: Performed By: #### U AMIC #### [facility] [address] [address] [address] Manda York Bilirubin [Mass/Vol] 0.2 mg/dL Normal 0.2-1.0 [facility] Comment on above: Performed By: #### U AMIC #### [facility] [address] [place] [address] Dr. Manda York Calcium [Mass/Vol] 8.7 mg/dL Normal 8.5-10.1 [facility] Comment on above: Performed By: #### U AMIC #### [facility] [address] [place] [address] Dr. Manda York Chloride [Moles/Vol] 104 mmol/L Normal 98-107 [facility] Comment on above: Performed By: #### U AMIC #### [facility] [address] [place] [address] Dr. Manda York CO2 [Moles/Vol] 25.1 mmol/L Normal 21.0-32.[address] [facility] Comment on above: Performed By: #### U AMIC #### [facility] [address] [place] [address] Dr. Manda York Creatinine [Mass/Vol] 0.80 mg/dL Normal 0.55-1.02 [facility] Comment on above: Performed By: #### U AMIC #### [facility] [address] [place] [address] Dr. Manda York EGFR-AF CAMBODIAN >60 Normal >=60 [facility] Comment on above: Performed By: #### U AMIC #### [facility] [address] [place] [address] Dr. Manda York EGFR-NON AF CAMBODIAN >60 Normal >=60 [facility] Comment on above: Performed By: #### U AMIC #### [facility] [address] [place] [address] Dr. Manda York Globulin (S) [Mass/Vol] 3.6 g/dL Normal [facility] Comment on above: Performed By: #### U AMIC #### [facility] [address] [address] [address] Manda York Glucose [Mass/Vol] 92 mg/dL Normal 74-106 [facility] Comment on above: Performed By: #### U AMIC #### [facility] [address] [address] [address] Manda York Potassium [Moles/Vol] 3.7 mmol/L Normal 3.5-5.1 [facility] Comment on above: Performed By: #### U AMIC #### [facility] [address] [address] [address] Manda York Protein [Mass/Vol] 7.1 g/dL Normal 6.4-8.2 [facility] Comment on above: Performed By: #### U AMIC #### [facility] [address] [address] [address] Manda York Sodium [Moles/Vol] 137 mmol/L Normal 136-145 [facility] Comment on above: Performed By: #### U AMIC #### [facility] [address] [address] [address] Manda York Urea nitrogen [Mass/Vol] 17.0 mg/dL Normal 7.0-18.0 [facility] Comment on above: Performed By: #### U AMIC #### [facility] [address] [address] [address] Manda York Urea nitrogen/Creatinine [Mass ratio] 21.2 mg/mg Normal [facility] Comment on above: Performed By: #### U AMIC #### [facility] [address] [address] [address] Manda York [facility] SED [facility]ATE 40 mm/hr Critically high <=20 [facility] Comment on above: Performed By: #### S EDR #### [facility] [address] [address] [address] Manda York TSHon 02-14-2022 TSH 1.155 uIU/mL Normal 0.358-3.740 [facility] Comment on above: Performed By: #### U AMIC #### [facility] [address] [place] [address] Dr. Manda York UA RANDOM W/MICROSCOPICon BACTERIA NONE SEEN Normal NONE SEEN The [facility] Comment on above: Performed By: #### U AMIC #### [facility] [address] [place] [address] Dr. Manda Yokr Bilirubin Ql (U) Negative Normal NEGATIVE [facility] Comment on above: Performed By: #### U AMIC #### [facility] [address] [place] [address] Dr. Manda York CAST NONE SEEN Normal NONE SEEN [facility] Comment on above: Performed By: #### U AMIC #### [facility] [address] [place] [address] Dr. Manda York Clarity (U) CLEAR Normal CLEAR The [facility] Comment on above: Performed By: #### U AMIC #### [facility] [address] [place] [address] Dr. Manda York Color (U) LT. YELLOW Normal YELLOW The [facility] Comment on above: Performed By: #### U AMIC #### [facility] [address] [place] [address] Dr. Manda York Crystals LM Nom (Urine sed) NONE SEEN Normal NONE SEEN The [facility] Comment on above: Performed By: #### U AMIC #### [facility] [address] [place] [address] Dr. Manda York Epithelial cells LM Ql (Urine sed) RARE Normal NONE SEEN /RARE The [facility] Comment on above: Performed By: #### U AMIC #### [facility] [address] [place] [address] Dr. Manda York Glucose Ql (U) Negative Normal NEGATIVE [facility] Comment on above: Performed By: #### U AMIC #### [facility] [address] [place] [address] Dr. Manda York Hemoglobin Ql (U) Negative Normal NEGATIVE [facility] Comment on above: Performed By: #### U AMIC #### [facility] [address] [address] [address] Manda York Ketones Ql (U) Negative Normal NEGATIVE [facility] Comment on above: Performed By: #### U AMIC #### [facility] [address] [address] [address] Manda York LEUKOCYTES Negative Normal NEGATIVE The [facility] Comment on above: Performed By: #### U AMIC #### [facility] [address] [address] [address] Manda York MUCOUS NONE SEEN Normal NONE SEEN The [facility] Comment on above: Performed By: #### U AMIC #### [facility] [address] [address] [address] Manda York Nitrite Ql (U) Negative Normal NEGATIVE [facility] Comment on above: Performed By: #### U AMIC #### [facility] [address] [address] [address] Manda York pH (U) 6.0 [pH] Normal 5-9 The [facility] Comment on above: Performed By: #### U AMIC #### [facility] [address] [place] [address] Dr. Manda York RBC NONE SEEN Abnormal 0-2 The [facility] Comment on above: Performed By: #### U AMIC #### [facility] [address] [address] [address] Manda York SPEC GRAVITY 1.005 Normal 1.005-<=1.[address] [facility] Comment on above: Performed By: #### U AMIC #### [facility] [address] [place] [address] Dr. Manda York UA PROTEIN Negative Normal NEGATIVE/ TRACE The [facility] Comment on above: Performed By: #### U AMIC #### [facility] [address] [place] [address] Dr. Manda York Urobilinogen Qn (U) 0.2 {Carmella'U}/dL Normal 0.2 - 1. 0 [facility] Comment on above: Performed By: #### U AMIC #### [facility] [address] [address] [address] Manda York WBC NONE SEEN Normal NONE SEEN [facility] Comment on above: Performed By: #### U AMIC #### [facility] [address] [address] [address] Manda York URIC ACID SERUMon 02-14-2022 Urate [Mass/Vol] 4.2 mg/dL Normal 2.6-6.[address] [facility] Comment on above: Performed By: #### U AMIC #### [facility] [address] [address] [address] Manda York VITAMIN D 25 OHon 02-14-2022 VIT D 25-OH 22.4 ng/mL Normal [facility] Comment on above: Performed By: #### F T4 #### [facility] [address] [place] [address] Dr. Manda York VIT D RANGES SEE BELOW Normal [facility] Comment on above: Result Comment: <20 ng/mL Vit D deficient 20 - <30 ng/mL Vit D insufficient 30 - 100 ng/mL Vit D sufficient >100 ng/mL Potential Toxicity Performed By: #### F T4 #### [facility] [address] [place] [address] Dr. Manda York METANEPHRINES FRAC. QNT 24 H R URINEon 11-28-2021 Metanephrine, U,24hr Comment Normal 36-209 [facility] Comment on above: Result Comment: No t otal volume submitted. Unable to calculate 24 hour result. Performed By: #### S LROIE THYLC #### [facility] [address] [place] [address] Dr. Manda York Metanephrine, Ur 57 ug/L Normal Undefined [facility] Comment on above: Performed By: #### S LORIE THYLC #### [facility] [address] [address] [address] Manda York Normetanephr.,U,24h Comment Normal 131-612 [facility] Comment on above: Result Comment: No t otal volume submitted. Unable to calculate 24 hour result. Performed By: #### S LORIE THYLC #### [facility] [address] [address] [address] Manda York Normetanephrine, Ur 116 ug/L Normal Undefined [facility] Comment on above: Performed By: #### S LORIE THYLC #### [facility] [address] [address] [address] Manda York METANEPHRINES PLASMA FREEon 11-27-2021 Metanephrine, Pl 22.1 pg/mL Normal 0.0-88.[address] [facility] Comment on above: Performed By: #### S LORIE THYLC #### [facility] [address] [place] [address] Dr. Manda York Normetanephrine, Pl 50.7 pg/mL Normal 0.0-218.9 [facility] Comment on above: Performed By: #### [facility] #### [facility] [address] [place] [address] Dr. Manda York CMV PLASMA PCRon 11-19-2021 CMV Quant DNA PCR (Plasma) Negative Normal Negative The [facility] Comment on above: Result Comment: No C MV DNA detected. The quantitative range of this assay is 200 to 1 million IU/mL. Performed By: #### Tye MELO THYLC #### [facility] [address] [place] [address] Dr. Manda York log10 CMV Qn DNA Pl UPTCAL Normal [facility] Comment on above: Result Comment: Unab le to calculate result since non-numeric result obtained for component test. Performed By: #### S LORIE THYLC #### [facility] [address] [place] [address] Dr. Manda York CMV AB IGMon 11-18-2021 Cytomegalovirus (CMV) Ab, IgM 43.2 AU/mL Critically high 0.0-29.9 [facility] Comment on above: Result Comment: Nega tive <30.0 Equivocal 30.0 - 34.9 Positive >34.9 A positive result is generally indicative of acute infection, reactivation or persistent IgM production. Performed By: #### [facility] #### [facility] [address] [place] [address] Dr. Manda York CMV AB, IGGon 11-18-2021 Cytomegalovirus (CMV) Ab, IgG >10.00 Critically high 0.00-0.59 [facility] Comment on above: Result Comment: Nega tive <0.60 Equivocal 0.60 - 0.69 Positive >0.69 Performed By: #### C MVIGG #### [facility] [address] [place] [address] Dr. Manda York CBC AUTO DIFFon 11-17-2021 BASO # 0.1 103/ul Normal 0.0-0.1 [facility] Comment on above: Performed By: #### C BC #### [facility] [address] [place] [address] Dr. Manda York Basophils/100 WBC (Bld) 0.6 % Normal 0.2-2.0 [facility] Comment on above: Performed By: #### C BC #### [facility] [address] [place] [address] Dr. Mnada York EO # 0.2 103/ul Normal 0.0-0.7 [facility] Comment on above: Performed By: #### C BC #### [facility] [address] [place] [address] Dr. Manda York Eosinophils/100 WBC (Bld) 2.3 % Normal 0.9-7.0 [facility] Comment on above: Performed By: #### C BC #### [facility] [address] [place] [address] Dr. Manda York Erythrocyte distribution width (RBC) [Ratio] 14.2 % Normal 11.0-15.0 [facility] Comment on above: Performed By: #### C BC #### [facility] [address] [place] [address] Dr. Manda York Hematocrit (Bld) [Volume fraction] 40.2 % Normal 36.0-48.0 [facility] Comment on above: Performed By: #### C BC #### [facility] [address] [place] [address] Dr. Manda York Hemoglobin (Bld) [Mass/Vol] 12.8 g/dL Normal 12.0-16.0 [facility] Comment on above: Performed By: #### C BC #### [facility] [address] [place] [address] Dr. Manda York IG # 0.02 10e3/ul Normal 0.00-0.03 [facility] Comment on above: Performed By: #### C BC #### [facility] [address] [place] [address] Dr. Manda York IG % 0.2 % Normal 0.0-0.5 [facility] Comment on above: Performed By: #### C BC #### [facility] [address] [place] [address] Dr. Manda York LYMPH # 2.5 103/ul Normal 1.2-3.8 [facility] Comment on above: Performed By: #### C BC #### [facility] [address] [place] [address] Dr. Manda York Lymphocytes/100 WBC (Bld) 24.9 % Normal 20.5-60.0 [facility] Comment on above: Performed By: #### C BC #### [facility] [address] [place] [address] Dr. Manda York MANUAL DIFF REQ NO Normal [facility] Comment on above: Performed By: #### C BC #### [facility] [address] [place] [address] Dr. Manda York MCH (RBC) [Entitic mass] 27.9 pg Normal 26.7-34.0 [facility] Comment on above: Performed By: #### C BC #### [facility] [address] [place] [address] Dr. Manda York MCHC (RBC) [Mass/Vol] 31.8 g/dL Normal 29.9-35.2 [facility] Comment on above: Performed By: #### C BC #### [facility] [address] [place], [place] [id number] Dr. Manda York MCV (RBC) [Entitic vol] 87.6 fL Normal 81.0-99.0 [facility] Comment on above: Performed By: #### C BC #### [facility] [address] [place] [address] Dr. Manda York MONO # 0.6 103/ul Normal 0.3-0.8 The [facility] Comment on above: Performed By: #### C BC #### [facility] [address] [place] [address] Dr. Manda York Monocytes/100 WBC (Bld) 6.3 % Normal 1.7-12.0 [facility] Comment on above: Performed By: #### C BC #### [facility] [address] [place] [address] Dr. Manda York NEUT # 6.5 103/ul Normal 1.4-6.5 [facility] Comment on above: Performed By: #### C BC #### [facility] [address] [place] [address] Dr. Manda York Neutrophils/100 WBC (Bld) 65.7 % Normal 43.0-75.0 [facility] Comment on above: Performed By: #### C BC #### [facility] [address] [place] [address] Dr. Manda York Platelet mean volume (Bld) [Entitic vol] 10.1 fL Normal 9.5-13.5 [facility] Comment on above: Performed By: #### C BC #### [facility] [address] [place] [address] Dr. Manda York PLT 304 103/ul Normal 150-450 [facility] Comment on above: Performed By: #### C BC #### [facility] [address] [place] [address] Dr. Manda York RBC 4.59 106/ul Normal 4.20-5.40 [facility] Comment on above: Performed By: #### C BC #### [facility] [address] [place] [address] Dr. Manda York WBC 9.9 103/ul Normal 4.0-11.0 [facility] Comment on above: Performed By: #### C BC #### [facility] [address] [place] [address] Dr. Manda York PROF 14(COMP METB)on 022 Albumin [Mass/Vol] 3.7 g/dL Normal 3.4-5.0 [facility] Comment on above: Performed By: #### C BC #### [facility] [address] [place] [address] Dr. Manda oYrk Albumin/Globulin [Mass ratio] 1.0 {ratio} Normal [facility] Comment on above: Performed By: #### C BC #### [facility] [address] [place] [address] Dr. Manda York ALP [Catalytic activity/Vol] 65 U/L Normal 46-116 [facility] Comment on above: Performed By: #### C BC #### [facility] [address] [place] [address] Dr. Manda York ALT [Catalytic activity/Vol] 35 U/L Normal 14-59 [facility] Comment on above: Performed By: #### C BC #### [facility] [address] [place] [address] Dr. Manda York Anion gap [Moles/Vol] 13.0 mmol/L Normal [facility] Comment on above: Performed By: #### C BC #### [facility] [address] [place] [address] Dr. Manda York AST [Catalytic activity/Vol] 12 U/L Critically low 15-37 [facility] Comment on above: Performed By: #### C BC #### [facility] [address] [place] [address] Dr. Manda York Bilirubin [Mass/Vol] 0.2 mg/dL Normal 0.2-1.0 [facility] Comment on above: Performed By: #### C BC #### [facility] [address] [place] [address] Dr. Manda York Calcium [Mass/Vol] 8.7 mg/dL Normal 8.5-10.1 [facility] Comment on above: Performed By: #### C BC #### [facility] [address] [place] [address] Dr. Manda York Chloride [Moles/Vol] 104 mmol/L Normal 98-107 [facility] Comment on above: Performed By: #### C BC #### [facility] [address] [address] [address] Manda York CO2 [Moles/Vol] 24.9 mmol/L Normal 21.0-32.[address] [facility] Comment on above: Performed By: #### C BC #### [facility] [address] [place] [address] Dr. Manda York Creatinine [Mass/Vol] 0.77 mg/dL Normal 0.55-1.02 [facility] Comment on above: Performed By: #### C BC #### [facility] [address] [place] [address] Dr. Manda York EGFR-AF CAMBODIAN >=60 Normal >=[address] [facility] Comment on above: Performed By: #### C BC #### [facility] [address] [place] [address] Dr. Manda York EGFR-NON AF CAMBODIAN >=60 Normal >=60 [facility] Comment on above: Performed By: #### C BC #### [facility] [address] [place] [address] Dr. Manda York Globulin (S) [Mass/Vol] 3.8 g/dL Normal [facility] Comment on above: Performed By: #### C BC #### [facility] [address] [place] [address] Dr. Manda York Glucose [Mass/Vol] 110 mg/dL Critically high 74-106 [facility] Comment on above: Performed By: #### C BC #### [facility] [address] [place] [address] Dr. Manda York Potassium [Moles/Vol] 3.9 mmol/L Normal 3.5-5.1 [facility] Comment on above: Performed By: #### C BC #### [facility] [address] [address] [address] Manda York Protein [Mass/Vol] 7.5 g/dL Normal 6.4-8.2 [facility] Comment on above: Performed By: #### C BC #### [facility] [address] [address] [address] Manda York Sodium [Moles/Vol] 138 mmol/L Normal 136-145 [facility] Comment on above: Performed By: #### C BC #### [facility] [address] [address] [address] Manda York Urea nitrogen [Mass/Vol] 17.0 mg/dL Normal 7.0-18.0 [facility] Comment on above: Performed By: #### C BC #### [facility] [address] [address] [address] Manda York Urea nitrogen/Creatinine [Mass ratio] 22.1 mg/mg Normal [facility] Comment on above: Performed By: #### C BC #### [facility] [address] [address] [address] Manda York SED RATE [facility] 2021 SED RATE 45 mm/hr Critically high <=20 [facility] Comment on above: Performed By: #### F T4 #### [facility] [address] [address] [address] Manda York CHRISTIAN EIA W/REFLEX 5 BIOMARKER Son 10-06-2021 CHRISTIAN Direct Positive Abnormal Negative [facility] Comment on above: Performed By: #### C BC #### [facility] [address] [address] [address] Manda York Anti-DNA (DS) Ab Qn 10 IU/mL Critically high 0-9 [facility] Comment on above: Result Comment: Nega tive <5 Equivocal 5 - 9 Positive >9 Performed By: #### C BC #### [facility] [address] [place] [address] Dr. Manda York HOSE TESTER Antibodies <0.2 Normal 0.0-0.9 [facility] Comment on above: Performed By: #### C BC #### [facility] [address] [place] [address] [address] [address] Manda York SEE BELOW: Comment Normal [facility] Comment on above: Result Comment: [...] Sm (anti-Schneider) SLE 15 - 30% --------- HOSE TESTER Mixed Connective Tissue Disease 95% (U1 nRNP, SLE 30 - 50% anti-ribonucleoprotein) Polymyositis and/or Dermatomyositis 20% --------- Scl-70 (antiDNA Scleroderma (diffuse) 20 - 35% topoisomerase) Crest 13% --------- Felicita-1 Polymyositis and/or Dermatomyositis 20 - 40% --------- Centromere B Scleroderma - Crest variant 80% Performed By: #### C BC #### [facility] [address] [address] [address] Manda York Sjogren's Anti-SS-A <0.2 Normal 0.0-0.9 [facility] Comment on above: Performed By: #### C BC #### [facility] [address] [address] [address] Manda York Sjogren's Anti-SS-B <0.2 Normal 0.0-0.9 [facility] Comment on above: Performed By: #### C BC #### [facility] [address] [address] [address] Manda York Schneider Antibodies <0.2 Normal 0.0-0.[address] [facility] Comment on above: Performed By: #### C BC #### [facility] [address] [place] [address] Dr. Manda York CMV PLASMA PCRon 10-06-2021 CMV Quant DNA PCR (Plasma) Negative Normal Negative [facility] Comment on above: Result Comment: No C MV DNA detected. The quantitative range of this assay is 200 to 1 million IU/mL. Performed By: #### C MVPL #### [facility] [address] [place] [address] Dr. Manda York log10 CMV Qn DNA Pl UPTCAL Normal [facility] Comment on above: Result Comment: Unab le to calculate result since non-numeric result obtained for component test. Performed By: #### C MVPL #### [facility] [address] [place] [address] Dr. Manda York CMV AB IGMon 2021 Cytomegalovirus (CMV) Ab, IgM 35.5 AU/mL Critically high 0.0-29.9 [facility] Comment on above: Result Comment: Nega tive <30.0 Equivocal 30.0 - 34.9 Positive >34.9 A positive result is generally indicative of acute infection, reactivation or persistent IgM production. Performed By: #### S LUIGI MELO #### [facility] [address] [place] [address] Dr. Manda York CMV AB, IGGon 2021 Cytomegalovirus (CMV) Ab, IgG 6.30 U/mL Critically high 0.00-0.59 [facility] Comment on above: Result Comment: Nega tive <0.60 Equivocal 0.60 - 0.69 Positive >0.69 Performed By: #### S LEANN MELOC #### [facility] [address] [place] [address] Dr. Manda York CBC AUTO DIFFon 10-03-2021 BASO # 0.1 103/ul Normal 0.0-0.1 [facility] Comment on above: Performed By: #### C BC #### [facility] [address] [place] [address] Dr. Manda York Basophils/100 WBC (Bld) 0.7 % Normal 0.2-2.0 [facility] Comment on above: Performed By: #### C BC #### [facility] [address] [place] [address] Dr. Manda York EO # 0.2 103/ul Normal 0.0-0.7 [facility] Comment on above: Performed By: #### C BC #### [facility] [address] [place] [address] Dr. Manda York Eosinophils/100 WBC (Bld) 2.0 % Normal 0.9-7.0 [facility] Comment on above: Performed By: #### C BC #### [facility] [address] [place] [address] Dr. Manda York Erythrocyte distribution width (RBC) [Ratio] 14.4 % Normal 11.0-15.0 [facility] Comment on above: Performed By: #### C BC #### [facility] [address] [place] [address] Dr. Manda York Hematocrit (Bld) [Volume fraction] 37.2 % Normal 36.0-48.0 [facility] Comment on above: Performed By: #### C BC #### [facility] [address] [place] [address] Dr. Manda York Hemoglobin (Bld) [Mass/Vol] 12.3 g/dL Normal 12.0-16.0 [facility] Comment on above: Performed By: #### C BC #### [facility] [address] [place] [address] Dr. Manda York IG # 0.02 10e3/ul Normal 0.00-0.03 [facility] Comment on above: Performed By: #### C BC #### [facility] [address] [place] [address] Dr. Manda York IG % 0.2 % Normal 0.0-0.5 [facility] Comment on above: Performed By: #### C BC #### [facility] [address] [place] [address] Dr. Manda York LYMPH # 2.1 103/ul Normal 1.2-3.8 [facility] Comment on above: Performed By: #### C BC #### [facility] [address] [place] [address] Dr. Manda York Lymphocytes/100 WBC (Bld) 26.4 % Normal 20.5-60.0 [facility] Comment on above: Performed By: #### C BC #### [facility] [address] [place] [address] Dr. Manda York MANUAL DIFF REQ NO Normal [facility] Comment on above: Performed By: #### C BC #### [facility] [address] [place] [address] Dr. Manda York MCH (RBC) [Entitic mass] 29.2 pg Normal 26.7-34.0 [facility] Comment on above: Performed By: #### C BC #### [facility] [address] [place] [address] Dr. Manda York MCHC (RBC) [Mass/Vol] 33.1 g/dL Normal 29.9-35.2 [facility] Comment on above: Performed By: #### C BC #### [facility] [address] [place] [address] Dr. Manda York MCV (RBC) [Entitic vol] 88.4 fL Normal 81.0-99.0 [facility] Comment on above: Performed By: #### C BC #### [facility] [address] [place] [address] Dr. Manda York MONO # 0.5 103/ul Normal 0.3-0.8 [facility] Comment on above: Performed By: #### C BC #### [facility] [address] [place] [address] Dr. Manda York Monocytes/100 WBC (Bld) 6.7 % Normal 1.7-12.0 [facility] Comment on above: Performed By: #### C BC #### [facility] [address] [place] [address] Dr. Manda York NEUT # 5.2 103/ul Normal 1.4-6.5 [facility] Comment on above: Performed By: #### C BC #### [facility] [address] [address] [address] Manda York Neutrophils/100 WBC (Bld) 64.0 % Normal 43.0-75.0 [facility] Comment on above: Performed By: #### C BC #### [facility] [address] [address] [address] Manda York Platelet mean volume (Bld) [Entitic vol] 10.5 fL Normal 9.5-13.5 [facility] Comment on above: Performed By: #### C BC #### [facility] [address] [address] [address] Manda York PLT 265 103/ul Normal 150-450 [facility] Comment on above: Performed By: #### C BC #### [facility] [address] [place] [address] Dr. Manda York RBC 4.21 106/ul Normal 4.20-5.40 [facility] Comment on above: Performed By: #### C BC #### [facility] [address] [place] [address] Dr. Manda York WBC 8.1 103/ul Normal 4.0-11.0 [facility] Comment on above: Performed By: #### C BC #### [facility] [address] [place] [address] Dr. Manda York CRPon 10-03-2021 CRP [Mass/Vol] mg/L Normal <=1.0 [facility] Comment on above: Performed By: #### F T4 #### [facility] [address] [place] [address] Dr. Manda York [facility] 34 mm/hr Critically high <=20 [facility] Comment on above: Performed By: #### C BC #### [facility] [address] [place] [address] Dr. Manda York CHLORIDE (POC)Ordered By: Jae Holley on 10-07-2020 Chloride [Moles/Vol] 106 mmol/L 98 - 10 7 mmol/L [employer] Work Phone: Catheterization and angiogra phy procedure details panelOrdered By: Jaren Holley on 10-07-2020 Cardiac Diagnostic Report Demographics Patient TERA Torres Date of Study 10/07/2020 Name Date of 1980 Gender Female Age 40 year(s) Race Room [id number]^LEYDI^JAREN Height: 67 inch, 170.18 cm Number Corporate [id number] Weight: 234 pounds, 106.1 kg ID # Patient [id number] BSA: 2.16 m^2 BMI: 36.65 kg/m^2 Acct # MR # [id number] Performing Jaren Holley Physician Referring # Physician [...] Right coronary angiography. Contrast Material: - Isovue 37301 ml Fluoroscopy Time: Diagnostic: 2:12 minutes. Total: [...] assessed as CCS II according to the [place] clinical classification. Hemodynamics Condition: Baseline Room Air Estimated: 246.52Heart Rate: 103 bpm Pressure +-----+ ---------+ !Site !Pressure ! +-----+ ---------+ !AO !106/68 (86) ! +-----+ ---------+ !AO !104/ (87) ! +-----+ ---------+ !AO !112/ (86) ! +-----+ ---------+ !LV !126/0 ,1 ! +-----+ ---------+ !LV !126/0 ,5 ! +-----+ ---------+ Valve Gradients and Areas + +--------- +---------+---------+- ---------+---------+-- ---------+ !Valve !Peak !Mean !Area !Index !Flow !Source ! + +--------- +---------+---------+- ---------+---------+-- ---------+ !Aortic (more content not included)... [employer] Work Phone: [facility], [facility] Incoming Cardio Results From [facility]/ - 10/07/2020 10:37 AM EDT Cardiac Diagnostic Report Demographics Patient TERA Torres Date of Study 10/07/2020 Name Date of 1980 Gender Female Age 40 year(s) Race Room [id number]^LEYDI^JAREN Height: 67 inch, 170.18 cm Number Corporate [id number] Weight: 234 pounds, 106.1 kg ID # Patient [id number] BSA: 2.16 m^2 BMI: 36.65 kg/m^2 Acct # MR # [id number] Performing Jaren Holley Physician Referring # Physician [...] Right coronary angiography. Contrast Material: - Isovue 60615 ml Fluoroscopy Time: Diagnostic: 2:12 minutes. Total: [...] assessed as CCS II according to the [place] clinical classification. Hemodynamics Condition: Baseline Room Air [...] ---------+---------+-- --------- + Shunts Oxygen Values O2 [id number] [id number] [employer] Phone: [employer] Phone: [employer] Phone: Creatinine W/GFR Point of Ca reOrdered By: Jaren Holley on 10-07-2020 Creatinine [Mass/Vol] 0.64 mg/dL 0.51 - 1.19 mg/dL [employer] Phone: GFR Non- >60 >60 mL/min [employer] Phone: GFR/1.73 sq M.predicted MDRD (S/P/Bld) [Vol rate/Area] mL/min/{1.73_m2} >60 mL/min [employer] Phone: GFR/1.73 sq M.predicted MDRD (S/P/Bld) [Vol rate/Area] [employer] Phone: Comment on above: Average GFR for 40-4 9 years old: 99 mL/min/1.73sq m Chronic Kidney Disease: <60 mL/min/1.73sq m Kidney failure: <15 mL/min/1.73sq m eGFR calculated using average adult body mass. Additional eGFR calculator available at: http://www.[employer]/multiple_crcl_2012.htm Hemoglobin and hematocrit, b loodOrdered By: Jaren Holley on 10-07-2020 Hematocrit (Bld) [Volume fraction] 41 % 36 - 46 % [employer] Phone: Hemoglobin (Bld) [Mass/Vol] 14.0 g/dL 12.0 - 16.0 g/dL [employer] Phone: No Panel InformationOrdered By: Jaren Holley on 10-07-2020 [employer] Phone: POCT GlucoseOrdered By: Anu Holley on 10-07-2020 Glucose [Mass/Vol] 98 mg/dL 74 - 100 mg/dL [employer] Phone: POCT urine pregnancyOrdered By: Jaren Holley on 10-07-2020 Beta HCG ( test) Ql (U) Negative NEGATIVE [employer] Phone: Comment on above: Specimens with hCG l evels near the threshold of the test (25 mIU/mL) may give a negative or indeterminate result. In such cases, another test should be performed with a new specimen in 48-72 hours. If early is suspected clinically in this setting, correlation with quantitative serum b-hCG level is suggested. [employer] Phone: POTASSIUM (POC)Ordered By: Al Holley on 10-07-2020 Potassium [Moles/Vol] 3.8 mmol/L 3.5 - 4.5 mmol/L [employer] Phone: Platelet Counton 10-07-2020 Platelets (Bld) [#/Vol] 299 10*3/uL Normal 138-453 [facility] Comment on above: Performed By: #### P LT #### [employer] [address] [place] [address] Manager Infusion: Rick Serrano MD Platelet countOrdered By: Jae Holley on 10-07-2020 Platelets (Bld) [#/Vol] 299 10*3/uL [employer] Phone: [employer] Phone: SODIUM (POC)Ordered By: Anu Holley on 10-07-2020 Sodium [Moles/Vol] 141 mmol/L 138 - 146 mmol/L [employer] Phone: Coding Summary.on 01-12-2019 Coding Summary. CODING DATE: 01/12/2019 FINAL [facility] STATUS: Home (Routine DC) PAYOR: [...] index (BMI) 34.0-34.9, adult Z79.899 Other 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 teacher (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 However, the narrative phrase printed from the coding software may appear abbreviated, or result in slightly different terminology. Coded By: Luz Judd Date Saved: 01/12/2019 10:25 am [facility] Coding Summary. CODING DATE: 01/12/2019 FINAL [facility] STATUS: Home (Routine DC) PAYOR: [...] mass index (BMI) 34.0-34.9, adult Z79.899 Other senior care (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 However, the narrative phrase printed from the coding software may appear abbreviated, or result in slightly different terminology. Revised Coded By: Luz Judd Revised Date Saved: 01/12/2019 10:25 am [facility] XR Chest 2 Viewson 9 XR [...] Valenzuela M.D. Transcribed by: BILL Technologist: ZOILA [facility] Auto Diffon 01-11-2019 Basophils/100 WBC (Bld) 0.8 % Normal 0.0-2.0 [facility] Comment on above: Order Comment: Order Added by Discern Expert. Performed By: #### 1 5626312, 8611770, 9593928, 8871917, 20988891, 5242588, 9018685, 2625539, 8795150, 41811733, 0764448 #### [facility] [address] [place] [address] Basophils/Leukocytes Auto (Bld) [Pure # fraction] 0.1 E9/L Normal 0.0-0.2 [facility] Comment on above: Order Comment: Order Added by Discern Expert. Performed By: #### 1 0937021, 1352403, 1896094, 6790823, 26389025, 5174869, 8332099, 7674100, 0601064, 31604693, 4118234 #### [facility] [address] [place] [address] Eosinophils/100 WBC (Bld) 1.9 % Normal 0.0-8.0 [facility] Comment on above: Order Comment: Order Added by Discern Expert. Performed By: #### 1 5986571, 7208720, 2927225, 6770055, 61286955, 1284450, 3936997, 0364919, 5415443, 63722206, 4308654 #### [facility] [address] [place] [address] Eosinophils/Leukocyte s Auto (Bld) [Pure # fraction] 0.1 E9/L Normal 0.0-0.5 [facility] Comment on above: Order Comment: Order Added by Discern Expert. Performed By: #### 1 6100231, 0411862, 2331052, 2128374, 99293412, 4144014, 5338722, 7586477, 0316086, 47869269, 4547313 #### [facility] [address] [place] [address] Lymphocytes/100 WBC (Bld) 28.0 % Normal 14.0-50.0 [facility] Comment on above: Order Comment: Order Added by Discern Expert. Performed By: #### 1 7058487, 6759254, 9181592, 9829625, 81915455, 0065108, 1438770, 7886313, 2900243, 21862342, 3422201 #### [facility] [address] [place] [address] Lymphocytes/Leukocyte s Auto (Bld) [Pure # fraction] 2.2 E9/L Normal 1.0-4.0 [facility] Comment on above: Order Comment: Order Added by Discern Expert. Performed By: #### 1 7020323, 2680217, 3104870, 5642928, 47963897, 2972005, 3343027, 1273566, 9202166, 78508366, 0144624 #### [facility] [address] [place] [address] Monocytes/100 WBC (Bld) 7.0 % Normal 4.0-14.0 [facility] Comment on above: Order Comment: Order Added by Discern Expert. Performed By: #### 1 7243682, 1386785, 0923313, 3965919, 36759658, 9467769, 7961044, 6424275, 8357921, 39603732, 8899765 #### [facility] [address] [place] [address] Monocytes/Leukocytes Auto (Bld) [Pure # fraction] 0.6 E9/L Normal 0.2-1.0 [facility] Comment on above: Order Comment: Order Added by Discern Expert. Performed By: #### 1 1399917, 0385886, 9909148, 5356109, 13938935, 7315659, 3117665, 2868603, 9771175, 79380098, 1246390 #### [facility] [address] [place] [address] Neutrophils/100 WBC (Bld) 62.3 % Normal 36.0-75.0 [facility] Comment on above: Order Comment: Order Added by Discern Expert. Performed By: #### 1 9706493, 0771737, 4900772, 7939136, 13778078, 3111838, 9421579, 4965128, 3378814, 54088504, 7237786 #### [facility] [address] [place] [address] Neutrophils/Leukocyte s Auto (Bld) [Pure # fraction] 4.9 E9/L Normal 2.0-7.5 [facility] Comment on above: Order Comment: Order Added by Discern Expert. Performed By: #### 1 8173712, 3430379, 3371518, 8285915, 74489249, 9239744, 5103295, 7985308, 3475060, 33158893, 2191599 #### [facility] [address] [place] [address] BMPon 01-11-2019 Creatinine [Mass/Vol] 0.7 mg/dL Normal 0.5-1.3 [facility] Comment on above: Performed By: #### 1 7902294, 4996643, 3047267, 8462464, 66131576, 3156021, 7514983, 7931614, 5504567, 90373455, 9496379 #### [facility] [address] [place] [address] Urea nitrogen [Mass/Vol] 11 mg/dL Normal 5-21 [facility] Comment on above: Performed By: #### 1 5555462, 3102280, 6578813, 2395590, 27344214, 4601395, 6877028, 7166160, 3130334, 91234891, 5597624 #### [facility] [address] [place] [address] Urea nitrogen/Creatinine [Mass ratio] 16 No Units Normal 10-20 [facility] Comment on above: Performed By: #### 1 4109483, 1293373, 5003685, 4324225, 46934680, 9359183, 8094953, 9531296, 3183837, 90147596, 9149375 #### [facility] [address] [place] [address] Anion gap [Moles/Vol] 14 mmol/L Normal 6-16 [facility] Comment on above: Performed By: #### 1 1519087, 7852404, 6789294, 1686735, 67853867, 0173015, 0079174, 3940494, 4143865, 77604698, 0291635 #### [facility] [address] [place] [address] Calcium [Mass/Vol] 8.9 mg/dL Normal 8.9-11.1 [facility] Comment on above: Performed By: #### 1 5037526, 9924825, 9258698, 3586780, 39214638, 7760064, 9886236, 5585474, 9448894, 68098225, 0287012 #### [facility] [address] [place] [address] Chloride [Moles/Vol] 107 mmol/L Normal 101-111 [facility] Comment on above: Performed By: #### 1 4812364, 0385019, 7437585, 3649614, 73892300, 7084384, 5850268, 8856930, 1265141, 96291020, 2013241 #### [facility] [address] [place] [address] CO2 [Moles/Vol] 22 mmol/L Normal 21-31 [facility] Comment on above: Performed By: #### 1 6767537, 3965971, 8512908, 3650441, 65726295, 3048360, 4708934, 0023002, 0629918, 71060495, 9046692 #### [facility] [address] [place] [address] Glucose [Mass/Vol] 122 mg/dL Normal 55-199 [facility] Comment on above: Result Comment: If t his glucose result represents a fasting glucose, interpretation should refer to the following reference range: 55-99 mg/dL Performed By: #### 1 5451150, 3983222, 4459550, 6312217, 30160410, 9665615, 2674627, 6505766, 6292477, 46364439, 9223054 #### [facility] [address] [place] [address] Potassium [Moles/Vol] 3.8 mmol/L Normal 3.5-5.3 [facility] Comment on above: Performed By: #### 1 3869125, 9596960, 3916791, 5308826, 52689428, 4922680, 6939611, 2181070, 4343912, 98937486, 2383872 #### [facility] [address] [place] [address] Sodium [Moles/Vol] 139 mmol/L Normal 135-145 [facility] Comment on above: Performed By: #### 1 5530043, 1715546, 0750638, 1013104, 98327293, 9613161, 6111616, 6887261, 0840780, 59081995, 6881701 #### [facility] [address] [place] [address] CBC w/ Auto Diffon 9 Erythrocyte distribution width (RBC) [Ratio] 14.0 % Normal 10.9-14.2 [facility] Comment on above: Performed By: #### 1 0194154, 3929876, 3379140, 0995859, 56804640, 6734381, 9570569, 0107549, 2438010, 98298014, 9217954 #### [facility] [address] [place] [address] Hematocrit (Bld) [Volume fraction] 39.9 % Normal 34.0-46.0 [facility] Comment on above: Performed By: #### 1 3017429, 2136127, 5805960, 1148246, 66326915, 3289916, 2040061, 1940172, 0344208, 70061627, 5472316 #### [facility] [address] [place] [address] Hemoglobin (Bld) [Mass/Vol] 13.5 g/dL Normal 12.0-16.0 [facility] Comment on above: Performed By: #### 1 8126956, 5036934, 2486252, 5062535, 61511839, 3118099, 6728637, 4912333, 5804087, 66796572, 7132821 #### [facility] [address] [place] [address] MCH (RBC) [Entitic mass] 29.4 pg Normal 27.0-34.0 [facility] Comment on above: Performed By: #### 1 9495260, 0803126, 9228801, 6008937, 00912142, 1723214, 9914891, 8778540, 3714728, 03482190, 2454655 #### [facility] [address] [place] [address] MCHC (RBC) [Mass/Vol] 33.7 g/dL Normal 33.3-35.7 [facility] Comment on above: Performed By: #### 1 7685734, 2496101, 1608584, 8881721, 07579934, 8701889, 7834569, 6589251, 0697679, 76539542, 9065589 #### [facility] [address] [place] [address] MCV (RBC) [Entitic vol] 87.4 fL Normal 80.0-100.0 [facility] Comment on above: Performed By: #### 1 6521527, 2976481, 2911468, 9638788, 67215012, 6795432, 5346955, 2046826, 0126350, 77785162, 2307207 #### [facility] [address] [place] [address] Platelet mean volume (Bld) [Entitic vol] 8.5 fL Normal 6.4-10.8 [facility] Comment on above: Performed By: #### 1 2871855, 0831174, 7917810, 5184569, 60930581, 2368810, 1917005, 2746979, 9296283, 69102630, 7473596 #### [facility] [address] [place] [address] Platelets (Bld) [#/Vol] 244.0 E9/L Normal 150.0-500.0 [facility] Comment on above: Performed By: #### 1 7708101, 7067411, 6149128, 4819560, 85662251, 4431885, 5384308, 9401113, 4234171, 64177670, 5427143 #### [facility] [address] [place] [address] RBC (Bld) [#/Vol] 4.6 E12/L Normal 4.3-5.9 [facility] Comment on above: Performed By: #### 1 8653580, 9704701, 3301036, 6629096, 72459173, 7567895, 5776053, 5666701, 9418225, 43913131, 3452646 #### [facility] [address] [place] [address] WBC corrected for nucl RBC Auto (Bld) [#/Vol] 7.9 E9/L Normal 4.0-11.0 [facility] Comment on above: Performed By: #### 1 6172119, 0114082, 7798448, 4237769, 11771101, 6521285, 5795241, 2275400, 4231086, 20923847, 6104422 #### [facility] [address] [place] [address] D-Dimeron 01-11-2019 Fibrin D-dimer FEU (PPP) [Mass/Vol] 265 ng/mL Normal 215-500 [facility] Comment on above: Result Comment: This D-Dimer [...] infections Liver cirrhosis Performed By: #### 1 6008357, 9562531, 0512682, 1535248, 59834628, 1572301, 9949862, 5696191, 9112112, 31727987, 2029646 #### [facility] [address] [place] [address] ED Clinical Summaryon 2018 ED Clinical Summary [address] [address] ED Clinical Summary Person Information Name: JONES HALEY [place] Age: 38 Years : 1980 12:00 AM Sex: Female Language: Cameroonian PCP: Charles Mitchell DO Marital Status: Single Phone: [phone] Visit Id: Visit Reason: Chest pain; CHEST [...] 01/11/2019 6:42 PM 01/11/2019 6:42 PM ADDRESS: [address] [place] [id number] [facility] DOC NOTES: MEDICAL INFORMATION: Prescriptions Given: PATIENT EDUCATION INFORMATION: Instructions: Smoking Cessation; Chest Pain (Nonspecific) Follow up: With: Address: [facility]: [address] [id number] Business (1) Within 2 to 3 days Comments: Return to ED if symptoms worsen DIAGNOSIS: 1:Chest pain Normal [facility] ED Note-Physicianon 01-12-20 ED Note-Physician Basic Information [...] prescription medications Follow-up With When Contact Information [facility] Within 2 to [address] [place] [phone]- Business (1) Additional Instructions: Return to ED [...] Lymph Auto: 28 % (01/11/19 16:46:00 EDT) [place] Auto: 7 % (01/11/19 16:46:00 EDT) Eos Auto: 1.9 % (01/11/19 16:46:00 EDT) Basophil Auto: 0.8 % (01/11/19 16:46:00 EDT) Neutro Absolute: 4.9 E9/L (01/11/19 16:46:00 EDT) Lymph Absolute: 2.2 E9/L (01/11/19 16:46:00 EDT) [place] Absolute: 0.6 E9/L (01/11/19 16:46:00 EDT) Eos [...] Results EC01/11/19: SINUS RHYTHM RATE 84, NORMAL WA AND QRS, NO ST ELEVATION OR DEPRSSION, NORMAL AXIS, NORMAL QTC NORMAL ECG Signed By: Orin Browne DO 01/11/2019 15:54:18 Normal [facility] Comment on above: Result Comment: Elec tronically Signed By: Orin Browne DO\.dyan\Date and Time Signed: 01/11/19 18:36 EDT ED [...] and skin patches. Some may be available rpiw-vgo-zzcyzqe and others require a prescription. ? Antidepressant [...] Document Reviewed: 08/18/2012 ExitCare? Patient Information ?2014 IMT ([employer]). This information is not intended to replace [...] Document Reviewed: 12/13/2008 ExitCare? Patient Information ?2015 ExitCare, [employer]. This information is not intended to replace advice given to you by your health care provider. Make sure you discuss any questions you have with your health care provider. Normal [facility] ED Patient Summaryon 019 ED Patient Summary [place] [id number] Patient Discharge Instructions Person Information Name: JONES HALEY Age: 38 Years Arrival Date: 01/11/2019 3:44 PM Discharge Diagnosis: 1:Chest pain Primary Care Physician: Charles Mitchell DO Provider Information Primary Provider: Orin Browne DO Advanced Steel Analyst:None The exam and treatment you received in the Emergency Department were for an urgent problem and are not intended as complete care. It is important that you follow up with a doctor, nurse practitioner, or physician?s legal support assistant for ongoing care. If your symptoms [...] Follow-up Instructions: With: Address: When: Charles Mitchell [address] [place] [address] Business (1) Within 2 to 3 days [...] opioids can be used to help relieve azsrcdxs-lq-vteept pain and are often prescribed following a [...] struggling with addiction, tell your health career and guidance counselor and ask for guidance or call SAMHSA?S National Helpline at 0-714-778-GPKN. v Source: [place] Department of Health and Human Services/Center for Disease Control & Prevention [facility] Medications Given: Medication Dose Route No medications found. Medication Information: Medications to Continue with No Changes Other Medications metformin (metformin 500 mg ER Tab) 250 Milligram By Mouth 2 times a day. Comment: Pharmacy Information: Thank you for choosing [facility] Patient Education Materials: Smoking Cessation Quitting smoking [...] and skin patches. Some may be available tlha-mqq-xoqbpsy and others require a prescription. ? Antidepressant [...] Document Reviewed: 08/18/2012 ExitCare? Patient Information ?2014 [employer] ([employer]). This information is not intended to replace [...] Document Reviewed: 12/13/2008 ExitCare? Patient Information ?2015 [employer] ([employer]). This information is not intended to replace advice given to you by your health care provider. Make sure you discuss any questions you have with your health care provider. TERA Dorantes NICOLE B , have received the following patient education materials/instructions and have verbalized understanding: Patient Education Materials: Smoking Cessation; Chest Pain (Nonspecific) Follow-up Instructions: With: Address: When: [address] [place] [address] Business (1) Within 2 to 3 days Comments: Return to ED if symptoms worsen Prescriptions: Patient Signature Date Clinician/Nurse Signature ___ Date 01/11/19 18:42:28 Normal [facility] Progress Note-Nurseon 2018 Progress Note-Nurse Pt explained dischar ge instructions and voiced understanding. Pt sts she will follow up with her PCP and denies any furthe questions at this time. Normal [facility] Troponin 0 Hr.on 01-11-2019 Troponin I.cardiac [Mass/Vol] ng/mL Normal <=0.03 [facility] Comment on above: Result Comment: New Troponin Assay 10/05/13 [place] Cutoff value > or = 0.03 ng/mL in conjunction with clinical conditions of myocardial infarction. (www.escardio.org/guidelines) Performed By: #### 1 5850180, 8771832, 0984333, 2778819, 17864948, 2168461, 9592912, 3582935, 1658634, 92757140, 0365338 #### [facility] [address] [place] [address] eGFRon 01-11-2019 GFR/1.73 sq M predicted among blacks MDRD (S/P/Bld) [Vol rate/Area] mL/min/{1.73_m2} Normal >=59 [facility] Comment on above: Order Comment: Order added by Discern Expert. Result Comment: eGFR is race adjusted. AA=. Performed By: #### 1 7396428, 9466696, 2310131, 8041785, 72123601, 1797251, 8162300, 7932389, 3534629, 12728187, 3847693 #### [place] [facility] [address] [place] [address] GFR/1.73 sq M predicted among non-blacks MDRD (S/P/Bld) [Vol rate/Area] mL/min/{1.73_m2} Normal >=59 [facility] Comment on above: Order Comment: Order added by Discern Expert. Result Comment: Car Wiper anthony kidney disease could be indicated at eGFR's of less than 60 mL/min/1.73m2. Kidney failure is indicated at less than 15 mL/min/1.73m2. Performed By: #### 1 1642251, 0468778, 2755119, 2481635, 64877354, 4318377, 3176408, 3329792, 3263146, 74126957, 1793903 #### [place] [facility] [address] [place] [address] SPINE, LUMBOSACRAL CMPLT(TOOTIE DING)on 12-05-2018 SPINE, LUMBOSACRAL CMPLT(BENDING) Patient Name: JONES HALEY STUDY: SPINE, LUMBOSACRAL; CMPLT(BENDING); 12/05/2018 1:47 pm INDICATION: LUMBAR XR. COMPARISON: None. ACCESSION NUMBER(S): [id number] ORDERING CLINICIAN: JUAN LUIS RICHARDSON FINDINGS: No lumbar spine fracture. Scattered small endplate osteophytes. Vertebral body and disc space heights are are maintained. 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 No spondylolisthesis. No instability on flexion or extension. IMPRESSION: Degenerative changes of the lumbar spine without instability. Electronically signed by: EARNESTINE MANUEL MD [facility] XR chest 2V*on 09-17-2018 XR chest 2V* [facility] [address] [place] [address] XRay Report Signed Patient: Jones Haley MR#: [id number] : 1980 Acct:[id number] Age/Sex: 37 / F ADM Date: 09/17/18 Loc: XDUCLY Room: Type: [facility] Attending Dr: Bettina COREAS Ordering Provider: [...] Simin Nelson M.D.09/17/2018 2:04 PM Dictation Location: [facility] Transcribed By: [facility] 09/17/18 1404 Dictated By: Simin Nelson MD 09/17/18 1403 Signed By: 09/17/18 1404 [facility] Coding Summary.on 09-15-2018 Coding Summary. CODING DATE: 09/15/2018 [facility] STATUS: Home (Routine DC) PAYOR: Medicaid EA [...] F17.210 Nicotine dependence, cigarettes, uncomplicated Z79.899 Other 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 teacher (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 However, the narrative phrase printed from the coding software may appear abbreviated, or result in slightly different terminology. Coded By: Lzu Judd Date Saved: 09/15/2018 07:15 am Normal [facility] Auto Diffon 09-14-2018 Basophils/100 WBC (Bld) 0.6 % Normal 0.0-2.0 [facility] Comment on above: Order Comment: Order Added by Discern Expert. Performed By: #### 1 4013853, 0050210, 0186810, 2623132, 18110052, 1720511, 4571816, 5430688, 0384838, 90062732, 6101800 #### [facility] [address] [place] [address] Basophils/Leukocytes Auto (Bld) [Pure # fraction] 0.1 E9/L Normal 0.0-0.2 [facility] Comment on above: Order Comment: Order Added by Discern Expert. Performed By: #### 1 2871251, 5452825, 4506108, 2718458, 36396575, 1634048, 2831962, 0606010, 1674699, 52260252, 7730085 #### [facility] [address] [place] [address] Eosinophils/100 WBC (Bld) 2.2 % Normal 0.0-8.0 [facility] Comment on above: Order Comment: Order Added by Discern Expert. Performed By: #### 1 0516554, 8092319, 5745834, 6373726, 80158189, 4565466, 1525135, 0514246, 6523247, 01243690, 5476640 #### [facility] [address] [place] [address] Eosinophils/Leukocyte s Auto (Bld) [Pure # fraction] 0.2 E9/L Normal 0.0-0.5 [facility] Comment on above: Order Comment: Order Added by Discern Expert. Performed By: #### 1 0688050, 0874908, 2482918, 9530331, 44886276, 6900166, 0553314, 6454067, 2281001, 95820135, 2386946 #### [facility] [address] [place] [address] Lymphocytes/100 WBC (Bld) 30.6 % Normal 14.0-50.0 [facility] Comment on above: Order Comment: Order Added by Discern Expert. Performed By: #### 1 6966398, 3746746, 9753280, 7373838, 32526787, 8709635, 5667890, 3201049, 9506252, 90726551, 1586272 #### [facility] [address] [place] [address] Lymphocytes/Leukocyte s Auto (Bld) [Pure # fraction] 3.0 E9/L Normal 1.0-4.0 [facility] Comment on above: Order Comment: Order Added by Discern Expert. Performed By: #### 1 4625827, 0491470, 1963954, 1722228, 08948346, 4749876, 4190777, 0884427, 6028078, 98298952, 9086403 #### [facility] [address] [place] [address] Monocytes/100 WBC (Bld) 7.2 % Normal 4.0-14.0 [facility] Comment on above: Order Comment: Order Added by Discern Expert. Performed By: #### 1 4649474, 5154988, 8663019, 2516205, 12531598, 2202922, 5472857, 5914605, 0680532, 27640248, 6168932 #### [facility] [address] [place] [address] Monocytes/Leukocytes Auto (Bld) [Pure # fraction] 0.7 E9/L Normal 0.2-1.0 [facility] Comment on above: Order Comment: Order Added by Discern Expert. Performed By: #### 1 0178067, 8728911, 3148280, 7344111, 85919806, 0986822, 8670872, 9876082, 1645356, 35752949, 8128893 #### [facility] [address] [place] [address] Neutrophils/100 WBC (Bld) 59.4 % Normal 36.0-75.0 [facility] Comment on above: Order Comment: Order Added by Discern Expert. Performed By: #### 1 4329287, 3294088, 7501960, 2846376, 10995321, 5961658, 7786782, 1529451, 7758703, 34878716, 5166201 #### [facility] [address] [place] [address] Neutrophils/Leukocyte s Auto (Bld) [Pure # fraction] 5.9 E9/L Normal 2.0-7.5 [facility] Comment on above: Order Comment: Order Added by Discern Expert. Performed By: #### 1 9657623, 6242325, 2054964, 6546088, 87616678, 9857064, 0603213, 9436204, 9282361, 35343749, 6862029 #### [facility] [address] [place] [address] BMPon 09-14-2018 Creatinine [Mass/Vol] 0.6 mg/dL Normal 0.5-1.3 [facility] Comment on above: Performed By: #### 1 2951341, 7760531, 9715418, 6383482, 13094457, 0684962, 9397001, 2843124, 4873527, 12655977, 8629474 #### [facility] [address] [place] [address] Urea nitrogen [Mass/Vol] 15 mg/dL Normal 5-21 [facility] Comment on above: Performed By: #### 1 3067750, 9239975, 7177306, 4174587, 31992792, 9047018, 6041404, 6026731, 9593756, 81068898, 8558429 #### [facility] [address] [place] [address] Urea nitrogen/Creatinine [Mass ratio] 25 No Units High 10-20 [facility] Comment on above: Performed By: #### 1 1653144, 1540116, 8952917, 5867701, 12290637, 3895513, 4121654, 5944866, 9513155, 57114084, 2147718 #### [facility] [address] [place] [address] Anion gap [Moles/Vol] 13 mmol/L Normal 6-16 [facility] Comment on above: Performed By: #### 1 8179399, 9915782, 6657381, 0869049, 24793047, 9017512, 9340003, 1278024, 3269831, 76672139, 7352610 #### [facility] [address] [place] [address] Calcium [Mass/Vol] 9.5 mg/dL Normal 8.9-11.1 [facility] Comment on above: Performed By: #### 1 1180521, 9411114, 1915851, 5712388, 07451520, 0797446, 3156114, 7336020, 0860248, 69885286, 7507725 #### [facility] [address] [place] [address] Chloride [Moles/Vol] 103 mmol/L Normal 101-111 [facility] Comment on above: Performed By: #### 1 6735657, 6905900, 9240078, 5156754, 15789856, 3952480, 1321230, 6561595, 7116284, 28770226, 3262373 #### [facility] [address] [place] [address] CO2 [Moles/Vol] 24 mmol/L Normal 21-31 [facility] Comment on above: Performed By: #### 1 0631754, 9447755, 3227268, 9650076, 69394135, 2235032, 0052419, 7326327, 5264367, 68350179, 5164780 #### [facility] [address] [place] [address] Glucose [Mass/Vol] 102 mg/dL Normal 55-199 [facility] Comment on above: Result Comment: If t his glucose result represents a fasting glucose, interpretation should refer to the following reference range: 55-99 mg/dL Performed By: #### 1 2734524, 4246581, 8862068, 3348788, 54506496, 0753813, 5017439, 7433116, 9827919, 45551077, 8652084 #### [facility] [address] [place] [address] Potassium [Moles/Vol] 3.6 mmol/L Normal 3.5-5.3 [facility] Comment on above: Performed By: #### 1 5993154, 4645356, 0484039, 1153286, 22188093, 3939884, 8513007, 8270301, 7084442, 84618267, 1231840 #### [facility] [address] [place] [address] Sodium [Moles/Vol] 136 mmol/L Normal 135-145 [facility] Comment on above: Performed By: #### 1 9583853, 4082276, 3176665, 9169421, 34879136, 3669318, 9788152, 1690603, 3417417, 94790600, 6586156 #### [facility] [address] [place] [address] CBC w/ Auto Diffon 9 Erythrocyte distribution width (RBC) [Ratio] 14.2 % Normal 10.9-14.2 [facility] Comment on above: Performed By: #### 1 2772947, 6692402, 7927342, 8168591, 53158228, 0781360, 2029750, 1181840, 4382994, 75201335, 7885936 #### [facility] [address] [place] [address] Hematocrit (Bld) [Volume fraction] 39.4 % Normal 34.0-46.0 [facility] Comment on above: Performed By: #### 1 6699268, 7273886, 4924358, 2386826, 72522811, 4446436, 8741554, 4161185, 1210557, 25662344, 7628275 #### [facility] [address] [place] [address] Hemoglobin (Bld) [Mass/Vol] 13.3 g/dL Normal 12.0-16.0 [facility] Comment on above: Performed By: #### 1 6053830, 7102173, 1239192, 5864475, 51101266, 2252584, 7041167, 3529290, 7878886, 91388623, 4877108 #### [facility] [address] [place] [address] MCH (RBC) [Entitic mass] 29.2 pg Normal 27.0-34.0 [facility] Comment on above: Performed By: #### 1 3176290, 8711189, 5858725, 6100923, 95756713, 7928905, 4895431, 6296232, 6905912, 18806404, 8931423 #### [facility] [address] [place] [address] MCHC (RBC) [Mass/Vol] 33.8 g/dL Normal 33.3-35.7 [facility] Comment on above: Performed By: #### 1 1422123, 8378520, 2130626, 0421265, 12782568, 5537816, 4590854, 7245414, 0574951, 79305912, 9768180 #### [facility] [address] [place] [address] MCV (RBC) [Entitic vol] 86.6 fL Normal 80.0-100.0 [facility] Comment on above: Performed By: #### 1 3527852, 4343328, 1207922, 5866477, 64491959, 2264752, 4696921, 0535218, 6307186, 48777662, 1115836 #### [facility] [address] [place] [address] Platelet mean volume (Bld) [Entitic vol] 8.8 fL Normal 6.4-10.8 [facility] Comment on above: Performed By: #### 1 5231306, 6423651, 9948969, 7784359, 40856477, 6914582, 2882012, 1920886, 6180823, 59438315, 4742488 #### [facility] [address] [place] [address] Platelets (Bld) [#/Vol] 307.0 E9/L Normal 150.0-500.0 [facility] Comment on above: Performed By: #### 1 2799648, 6993562, 2752340, 8678267, 56661867, 8297982, 3200458, 8579028, 3027526, 49300084, 7336670 #### [facility] [address] [place] [address] RBC (Bld) [#/Vol] 4.6 E12/L Normal 4.3-5.9 [facility] Comment on above: Performed By: #### 1 7391427, 6820842, 6749268, 3668102, 57568684, 3312440, 5402504, 9188033, 8144422, 64715625, 1400446 #### [facility] [address] [place] [address] WBC corrected for nucl RBC Auto (Bld) [#/Vol] 9.9 E9/L Normal 4.0-11.0 [facility] Comment on above: Performed By: #### 1 9675937, 6819206, 7868162, 1712399, 18267098, 9549371, 3725310, 2077185, 7716874, 30469540, 4197307 #### [facility] [address] [place] [address] CKon 09-14-2018 CK [Catalytic activity/Vol] 53 Int._Unit/L Normal 14-261 [facility] Comment on above: Performed By: #### 1 0673817, 1664920, 1874173, 9639774, 75451337, 3131447, 2352405, 1575891, 7813624, 60404836, 4724696 #### [facility] [address] [place] [address] ED Clinical Summaryon 2018 ED Clinical Summary [place] [id number] ED Clinical Summary Person Information Name: JONES HALEY [place] Age: 37 Years : 1980 12:00 AM Sex: Female Language: Cameroonian PCP: Charles Mitchell DO Marital Status: Single Phone: [phone] Visit Id: Visit Reason: Anxiety; Paraesthesia; NUMBNESS [...] 09/14/2018 12:17 AM 09/14/2018 12:17 AM ADDRESS: [address] [place] [phone] PHYS DOC NOTES: MEDICAL INFORMATION: Prescriptions Given: Prescription Display gabapentin (gabapentin 100 mg Cap) 100 mg = 1 cap(s), Oral, Daily, X 7 day(s), # 7 cap(s), Refills(s) 0, [facility] gabapentin (gabapentin 100 mg Cap) 100 mg = 1 cap(s), Oral, Daily, X 7 day(s), # 7 cap(s), Refills(s) 0, Pharmacy: [facility] magnesium oxide (magnesium oxide 400 mg Tab) 400 mg = 1 tab(s), Oral, Daily, X 7 day(s), # 7 tab(s), Refills(s) 0, Pharmacy: [facility] magnesium oxide (magnesium oxide 400 mg Tab) 400 mg = 1 tab(s), Oral, Daily, X 7 day(s), # 7 tab(s), Refills(s) 0, Pharmacy: [facility]177 Home Meds Display metformin (metformin 500 mg ER Tab) 250 mg, Oral, BID, Refills(s) 0 PATIENT EDUCATION INFORMATION: Instructions: Paresthesia, Owaq-md-Krzj; Restless Legs Syndrome Follow up: With: Address: When: Sayda Kelley [address] [place] [address] Business (1) Within 1 to 2 days Comments: neurologist you may also follow up with him With: Address: When: [address] [address] Business (1) Within 1 to 2 days Comments: Return to ED if symptoms worsen DIAGNOSIS: 1:Restless leg syndrome Normal [facility] ED Note-Nursingon 09-14-2018 ED Note-Nursing Pt up to RR, gait steady. Normal [facility] ED Note-Nursing Aware of need for urine specimen, denies urge at present, states will notify when able to produce sample, will monitor. Normal [facility] ED Note-Physicianon 09-15-19 19 ED Note-Physician Basic [...] # 7 cap(s), Refills(s) 0, Pharmacy: [facility]177 magnesium oxide, 400 mg = 1 tab(s), Oral, Daily, X 7 day(s), # 7 tab(s), Refills(s) 0, Pharmacy: [facility]6177 Sodium Chloride 0.9% intravenous solution 1,000 [...] Sayda Kelley Within 1 to [address] [address]- Business (1) Additional Instructions: neurologist you may also follow up with him Charles Mitchell Within 1 to [address] [place] [address]- Business (1) Additional Instructions: Return to ED if symptoms worsen Patient Education Paresthesia, Sfgu-ix-Evxi Restless Legs Syndrome Problem List/Past Medical History [...] Lymph Auto: 30.6 % (09/13/18 23:03:00 EDT) [place] Auto: 7.2 % (09/13/18 23:03:00 EDT) Eos Auto: 2.2 % (09/13/18 23:03:00 EDT) Basophil Auto: 0.6 % (09/13/18 23:03:00 EDT) Neutro Absolute: 5.9 E9/L (09/13/18 23:03:00 EDT) Lymph Absolute: 3 E9/L (09/13/18 23:03:00 EDT) [place] Absolute: 0.7 E9/L (09/13/18 23:03:00 EDT) Eos [...] Diagnostic Results No qualifying data available. Normal [facility] Comment on above: Result Comment: Elec tronically Signed By: Alexandra Lozoya DO\Date and Time Signed: 09/14/18 01:59 EDT ED [...] Document Reviewed: 01/29/2012 ExitCare? Patient Information ?2014 [employer]). This information is not intended to replace [...] ? Drawing. ? Crawling. ? Worming. ? [place]. ? Tingling. ? Pins and needles. ? [...] Document Reviewed: 08/06/2011 ExitCare? Patient Information ?2014 [employer]). This information is not intended to replace advice given to you by your health care provider. Make sure you discuss any questions you have with your health care provider. Normal [facility] ED Patient Summaryon 019 ED Patient Summary [address] [address] Patient Discharge Instructions Person Information Name: JONES HALEY Age: 37 Years Arrival Date: 09/13/2018 10:16 PM Discharge Diagnosis: 1:Restless leg syndrome Primary Care Physician: Charles Mitchell DO Provider Information Primary Provider: Darell DO, G[employer] Analyst:None The exam and treatment you received in the Emergency Department were for an urgent problem and are not intended as complete care. It is important that you follow up with a doctor, nurse practitioner, or physician?s legal support assistant for ongoing care. If your symptoms [...] Follow-up Instructions: With: Address: When: Sayda Kelley [facility], [address] [place] [address] Business (1) Within 1 to 2 days Comments: neurologist you may also follow up with him With: Address: When: [facility] [address] [place] [address] Business (1) Within 1 to 2 days Comments: Return to ED if symptoms worsen In the event that this physician does not participate in your insurance network, please consult with your insurance company to find a nearby participating provider. Patient Education Materials: Paresthesia, Wogz-au-Qxjo; Restless Legs Syndrome A MESSAGE TO ALL PATIENTS REGARDING OPIOIDS PRESCRIPTION OPIOIDS: WHAT YOU NEED TO KNOW Prescription opioids can be used to help relieve xapolyij-xb-euptdo pain and are often prescribed following a [...] struggling with addiction, tell your health career and guidance counselor and ask for guidance or call SAMHSA?S National Helpline at 0-598-234-QJVW. v Source: [place] Department of Health and Human Services/Center for Disease Control & Prevention [facility] Medications Given: Medication Dose Route Sodium Chloride 0.9% intravenous solution 1000.00 mL Initial Volume 1000.00 mL/hr IV Piggyback Left Mid Forearm Medication Information: New Medications [id number], [address], [place] [id number], [phone] gabapentin (gabapentin 100 mg Cap) 1 Capsules By Mouth every day for 7 Days. Refills: 0. magnesium oxide (magnesium oxide 400 mg Tab) 1 Tabs By Mouth every day for 7 Days. Refills: 0. [facility], [address] [facility] [address] [place], [place] [id number], [phone] gabapentin (gabapentin 100 mg Cap) 1 Capsules [...] for choosing [facility] Patient Education Materials: Paresthesia Paresthesia is a [...] Document Reviewed: 01/29/2012 ExitCare? Patient Information ?2015 [employer] [facility]. This information is not intended to [...] ? Drawing. ? Crawling. ? Worming. ? [place]. ? Tingling. ? Pins and needles. ? [...] Document Reviewed: 08/06/2011 ExitCare? Patient Information ?2014 [employer]). This information is not intended to replace advice given to you by your health care provider. Make sure you discuss any questions you have with your health care provider. TERA Dorantes NICOLE B , have received the following patient education materials/instructions and have verbalized understanding: Patient Education Materials: Paresthesia, Sscy-co-Aquu; Restless Legs Syndrome Follow-up Instructions: With: Address: When: Sayda Kelley [facility], [address] [place] [address] Business (1) Within 1 to 2 days Comments: neurologist you may also follow up with him With: Address: When: [address] [address] Business (1) Within 1 to 2 days Comments: Return to ED if symptoms worsen Prescriptions: [gabapentin (gabapentin 100 mg Cap)] [gabapentin (gabapentin 100 mg Cap)] [magnesium oxide (magnesium oxide 400 mg Tab)] [magnesium oxide (magnesium oxide 400 mg Tab)] Patient Signature Date Clinician/Nurse Signature ___ Date 09/14/18 00:21:38 Normal [facility] Hep Func Panelon 09-14-2018 Bilirubin.direct [Mass/Vol] UTC Abnormal 0.1-0.9 [facility] Comment on above: Result Comment: Resu lt verified by Discern Rule. Performed result UTC (Unable to Calculate) was sent as an Alpha code due the inability to calculate a valid numeric value. Performed By: #### 1 6562541, 9747008, 5176119, 0948666, 53973020, 2736007, 7767193, 2934459, 5954269, 95087007, 9727369 #### [facility] [address] [place] [address] Albumin [Mass/Vol] 1.1 g/dL Normal 1.1-2.2 [facility] Comment on above: Performed By: #### 1 5192592, 3146392, 4462676, 4298400, 95182321, 8801022, 9651403, 6995705, 3566722, 34048207, 6496610 #### [facility] [address] [place] [address] Albumin [Mass/Vol] 4.1 g/dL Normal 3.3-5.0 [facility] Comment on above: Performed By: #### 1 5926579, 0717752, 8161610, 4186049, 75513204, 7974378, 2955283, 5283857, 0762303, 74173262, 9151538 #### [facility] [address] [place] [address] ALP [Catalytic activity/Vol] 69 Int._Unit/L Normal 21-98 [facility] Comment on above: Performed By: #### 1 1256524, 3972521, 0897678, 1889970, 28219480, 5109557, 1223002, 6556353, 1177029, 31362383, 7636072 #### [facility] [address] [place] [address] ALT No additional P-5'-P [Catalytic activity/Vol] 27 Int._Unit/L Normal 6-46 [facility] Comment on above: Performed By: #### 1 3721093, 4321379, 6042909, 6513519, 99463845, 1253892, 6891086, 1754816, 8953544, 85731442, 3755927 #### [facility] [address] [place] [address] AST [Catalytic activity/Vol] 16 Int._Unit/L Normal 5-43 [facility] Comment on above: Performed By: #### 1 3957525, 1540370, 4648501, 2393765, 71263764, 8791784, 7625353, 1268258, 3764107, 84268959, 5749911 #### [facility] [address] [place] [address] Bilirubin [Mass/Vol] 0.5 mg/dL Normal 0.0-1.1 [facility] Comment on above: Performed By: #### 1 2916369, 6704391, 0732219, 5533745, 48854786, 0601221, 2962979, 5674790, 1826058, 93929741, 4423470 #### [facility] [address] [place] [address] Bilirubin.direct [Mass/Vol] mg/dL Normal 0.1-0.4 [facility] Comment on above: Performed By: #### 1 8741216, 6561648, 3121053, 1613239, 59599363, 8268412, 0569956, 2233911, 2130184, 20649925, 6177118 #### [facility] [address] [place] [address] Globulin (S) [Mass/Vol] 3.7 g/dL Normal 1.4-4.0 [facility] Comment on above: Performed By: #### 1 1453366, 1588805, 4971318, 1722681, 36966626, 3123962, 0300954, 2416123, 7783994, 47772953, 0697351 #### [facility] [address] [place] [address] Protein [Mass/Vol] 7.8 g/dL Normal 6.0-7.8 [facility] Comment on above: Performed By: #### 1 4416647, 5680305, 7166013, 6223170, 91220925, 4210858, 6646499, 8381530, 9374208, 04572209, 6404667 #### [facility] [address] [place] [address] Magnesiumon 09-14-2018 Magnesium [Mass/Vol] 1.9 mg/dL Normal 1.3-2.4 [facility] Comment on above: Performed By: #### 1 7870486, 3771881, 7454747, 0977073, 71032953, 0819423, 6960410, 3469656, 7477480, 54300809, 4122610 #### [facility] [address] [place] [address] Myoglobinon 09-14-2018 Myoglobin [Mass/Vol] 9 ng/mL Normal <=69 [facility] Comment on above: Performed By: #### 1 3575268, 6556050, 5405267, 2031336, 39262243, 6493665, 7028909, 1594972, 4830932, 76409507, 1572060 #### [facility] [address] [place] [address] PT & PTTon 09-14-2018 aPTT Coag (PPP) [Time] 34.5 second(s) Normal 25.1-36.5 [facility] Comment on above: Result Comment: Hepa rin therapeutic range (represented by Anti-Factor Xa activity of 0.2 - 0.4 U/mL) corresponds to PTT of 56.6 - 109.0 sec. Performed By: #### 1 0707171, 5644506, 5535854, 3207828, 53932366, 8603769, 1161668, 0823680, 0654734, 06388812, 1408554 #### [facility] [address] [place] [address] INR Coag (PPP) [Relative time] 1.0 {INR} [facility] Comment on above: Result Comment: INR results are specifically intended to assess patients stabilized on long-term Anticoagulation therapy suggested INR?s ?Less Intensive Anticoagulation? 2.0 ? 3.0 Conventional Range 3.0 ? 4.5 Performed By: #### 1 6067750, 0738123, 6831619, 8977184, 17590437, 1512648, 4803100, 2135400, 2203441, 00394866, 5573958 #### [facility] [address] [place] [address] PT Coag (PPP) [Time] 11.2 second(s) Normal 10.2-12.9 [facility] Comment on above: Performed By: #### 1 3201179, 4075449, 5203008, 4853513, 53434618, 1158785, 6532793, 8133999, 2372921, 24335598, 1699367 #### [facility] [address] [place] [address] Phosphoruson 09-14-2018 Phosphate [Mass/Vol] 3.8 mg/dL Normal 1.9-4.6 [facility] Comment on above: Performed By: #### 1 7774811, 3315763, 3784108, 0866094, 48016996, 9614599, 6715060, 8152117, 6955298, 46285941, 8738653 #### [facility] [address] [place] [address] Troponin 0 Hr.on 09-14-2018 Troponin I.cardiac [Mass/Vol] ng/mL Normal <=0.03 [facility] Comment on above: Result Comment: New Troponin Assay 10/05/13 KR[place] IN Cutoff value > or = 0.03 ng/mL in conjunction with clinical conditions of myocardial infarction. ([email or web address]/guidelines) Performed By: #### 1 5777614, 3910258, 9640061, 5190296, 47636423, 4216275, 5159018, 6635000, 0530260, 74560064, 3834775 #### [facility] [address] [place] [address] UA With Cult Reflexon 2018 Bacteria LM Ql (Urine sed) TRACE Normal Trace [facility] Comment on above: Performed By: #### 1 5982287, 6931278, 2995745, 0621744, 32242404, 2402659, 6575465, 8942568, 8440019, 29357318, 7717424 #### [facility] [address] [place] [address] Bilirubin Ql (U) Negative Normal Negative [facility] Comment on above: Performed By: #### 1 9846648, 3331459, 4886255, 1825007, 89407828, 8323385, 2837303, 8852977, 4433480, 40151664, 8992520 #### [facility] [address] [place] [address] Clarity (U) CLEAR Normal Clear [facility] Comment on above: Performed By: #### 1 0878514, 7367030, 9900587, 9220996, 86432432, 8307525, 8312423, 5512203, 6415888, 17973741, 0092344 #### [facility] [address] [place] [address] Color (U) YELLOW Normal Yellow [facility] Comment on above: Performed By: #### 1 2697855, 4087919, 3025563, 1578432, 38475178, 4866549, 8477298, 1231259, 8958086, 21977635, 3744651 #### [facility] [address] [place] [address] Epithelial cells.squamous LM.HPF (Urine sed) [#/Area] 0-2 Normal 0-2 [facility] Comment on above: Performed By: #### 1 8655356, 8905168, 9576003, 5861627, 90694017, 4927724, 0658563, 2566364, 0714721, 94565097, 3116681 #### [facility] [address] [place] [address] Glucose Test strip (U) [Mass/Vol] Negative Normal Negative [facility] Comment on above: Performed By: #### 1 1431006, 3915511, 5559229, 1351477, 17901877, 2899787, 0278158, 2713903, 1089491, 37066850, 3558077 #### [facility] [address] [place] [address] Hemoglobin Ql (U) Negative Normal Negative [facility] Comment on above: Performed By: #### 1 9903935, 5960312, 9545539, 9028973, 19763129, 3997417, 5768564, 7352897, 8157072, 15719057, 3960092 #### [facility] [address] [place] [address] Ketones (U) [Mass/Vol] Negative Normal Negative [facility] Comment on above: Performed By: #### 1 2865814, 6217909, 4689994, 2520022, 30110965, 4637360, 1811477, 5609778, 4781732, 87781501, 3711988 #### [facility] [address] [place] [address] [place].plasma/Lithiu m.RBC (Bld) [Mass ratio] 0-3 Normal 0-3 [facility] Comment on above: Performed By: #### 1 8074121, 2886932, 1133767, 2953510, 79341879, 2751554, 4498297, 6780690, 3222573, 93184474, 1910824 #### [facility] [address] [place] [address] Mucus Ql (Urine sed) TRACE Normal [facility] Comment on above: Performed By: #### 1 5156221, 6239987, 0879048, 2498823, 10305946, 0644224, 0317400, 7800035, 4009173, 14273730, 2130386 #### [facility] [address] [place] [address] Nitrite Ql (U) Negative Normal Negative [facility] Comment on above: Performed By: #### 1 3230609, 3967279, 6895119, 9897374, 23915096, 8524946, 6311271, 8789666, 6929364, 60446305, 5979358 #### [facility] [address] [place] [address] pH (U) 6.0 [pH] 5.0-9.0 [facility] Comment on above: Performed By: #### 1 6559527, 3822404, 4324808, 8365730, 90542665, 3845394, 0774913, 9303006, 2184360, 90734599, 2807856 #### [facility] [address] [place] [address] Protein (U) [Mass/Vol] Negative Normal Negative [facility] Comment on above: Performed By: #### 1 9549505, 3052161, 6763301, 9258072, 29775190, 6529058, 9339518, 2856688, 7003092, 96948006, 3821745 #### [facility] [address] [place] [address] Specific gravity (U) [Rel density] 1.010 1.005-1.030 [facility] Comment on above: Performed By: #### 1 2855606, 0893039, 7998347, 4696866, 77418003, 7681079, 0806831, 4738513, 3286994, 55372900, 1130528 #### [facility] [address] [place] [address] UA Spec Desc Clean Catch Normal [facility] Comment on above: Performed By: #### 1 0229751, 0762045, 8129307, 6311846, 01338399, 8727494, 5900580, 7805287, 3249854, 31362134, 4876937 #### [facility] [address] [place] [address] Urobilinogen Qn (U) 0.2 {Carmella'U}/dL Normal 0.0-1.0 [facility] Comment on above: Performed By: #### 1 4770469, 9663328, 9022797, 7349283, 51055503, 0235254, 7322123, 8184576, 5885818, 23512609, 3776173 #### [facility] [address] [place] [address] WBC Auto Ql (U) Negative Normal Negative [facility] Comment on above: Performed By: #### 1 3860264, 1570061, 4207787, 7664559, 34436804, 7881206, 9698127, 6222617, 0147667, 37682452, 0100435 #### [facility] [address] [place] [address] WBC LM.HPF (Urine sed) [#/Area] 0-5 Normal 0-5 [facility] Comment on above: Performed By: #### 1 7444866, 8254577, 6075198, 0762085, 15898174, 1898044, 1674910, 6239242, 5913435, 02325379, 9541371 #### [facility] [address] [place] [address] XR Chest Single Viewon 09-14 XR Chest [...] M.D. Transcribed by: tye Technologist: AP Normal [facility] XR FOOT LEFT (MIN 3 VIEWS)on 09-14-2018 XR FOOT LEFT (MIN 3 VIEWS) Radiology exam is complete. No Radiologist dictation. Please follow up with ordering provider. Final result Normal [facility] XR FOOT RIGHT (MIN 3 VIEWS)o n 09-14-2018 XR FOOT RIGHT (MIN 3 VIEWS) Radiology exam is complete. No Radiologist dictation. Please follow up with ordering provider. Final result Normal [facility] eGFRon 09-14-2018 GFR/1.73 sq M predicted among blacks MDRD (S/P/Bld) [Vol rate/Area] mL/min/{1.73_m2} Normal >=59 [facility] Comment on above: Order Comment: Order added by Discern Expert. Result Comment: eGFR is race adjusted. AA=. Performed By: #### 1 2715552, 2337948, 4536075, 5159120, 48684316, 8154440, 9618530, 4698195, 4842513, 49261054, 8132126 #### [facility] [address] [place] [address] GFR/1.73 sq M predicted among non-blacks MDRD (S/P/Bld) [Vol rate/Area] mL/min/{1.73_m2} Normal >=59 [facility] Comment on above: Order Comment: Order added by Discern Expert. Result Comment: Car Wiper anthony kidney disease could be indicated at eGFR's of less than 60 mL/min/1.73m2. Kidney failure is indicated at less than 15 mL/min/1.73m2. Performed By: #### 1 1776208, 9694765, 4128020, 2948103, 37248772, 2222843, 8362837, 7468912, 0117614, 57347272, 1784246 #### [facility] [address] [place] [address] Vital Signs Date Time Vital Sign Value Performing Clinician Facility 11-29-2023 13:43-0400 Body temperature 97.59 [degF] [employer] Work Phone: [facility] 11-29-2023 13:43-0400 Diastolic blood pressure 51 mm[Hg] [facility] Work Phone: [facility] 11-29-2023 13:43-0400 Heart rate 73 /min [facility] Work Phone: [facility] 11-29-2023 13:43-0400 Respiratory rate 16 /min [facility] Work Phone: [facility] 11-29-2023 13:43-0400 SaO2% (BldA) [Mass fraction] 96 % [facility] Work Phone: [facility] 11-29-2023 13:43-0400 Systolic blood pressure 83 mm[Hg] Ma [facility] Work Phone: [facility] 11-04-2023 13:55-0400 Body height 170.[address] [facility] 11-04-2023 13:55-0400 Body temperature 97.3 [degF] [facility] 11-04-2023 13:55-0400 Diastolic blood pressure 54 mm[Hg] [facility] 11-04-2023 13:55-0400 Heart rate 62 /min [facility] 11-04-2023 13:55-0400 Systolic blood pressure 104 mm[Hg] [facility] 10-27-2023 14:44-0400 Body temperature 97 [degF] Ma [facility] Work Phone: [facility] 10-27-2023 14:44-0400 Diastolic blood pressure 72 mm[Hg] Ma Sand Work Phone: [facility] 10-27-2023 14:44-0400 Heart rate 97 /min Ma Sand Work Phone: [facility] 10-27-2023 14:44-0400 Respiratory rate 18 /min Ma [facility] Work Phone: [facility] 10-27-2023 14:44-0400 SaO2% (BldA) [Mass fraction] 97 % Ma Sand Work Phone: [facility] 10-27-2023 14:44-0400 Systolic blood pressure 110 mm[Hg] Ma [facility] Work Phone: [facility] 10-20-2023 13:10-0400 Body height 170.[address] [facility] 10-20-2023 13:10-0400 Body mass index (BMI) [Ratio] 43.2 kg/m2 [facility] 10-20-2023 13:10-0400 Body temperature 97.3 [degF] [facility] [facility] 10-20-2023 13:10-0400 Body weight 125.[address] [facility] 10-20-2023 13:10-0400 Diastolic blood pressure 54 mm[Hg] [facility] 10-20-2023 13:10-0400 Heart rate 74 /min [facility] 10-20-2023 13:10-0400 Systolic blood pressure 111 mm[Hg] [facility] 09-30-2023 10:48-0400 Body temperature 97 [degF] Ma Sand Work Phone: [facility] 09-30-2023 10:48-0400 Diastolic blood pressure 82 mm[Hg] Ma Sand Work Phone: [facility] 09-30-2023 10:48-0400 Heart rate 71 /min Ma Sand Work Phone: [facility] 09-30-2023 10:48-0400 Respiratory rate 18 /min Ma Sand Work Phone: [facility] 09-30-2023 10:48-0400 SaO2% (BldA) [Mass fraction] 97 % Ma Sand Work Phone: [facility] 09-30-2023 10:48-0400 Systolic blood pressure 132 mm[Hg] Ma Sand Work Phone: [facility] 09-22-2023 14:41-0400 Body weight 117.[address] [facility] 08-31-2023 10:34-0400 Body temperature 97.3 [degF] Ma Sand Work Phone: [facility] 08-31-2023 10:34-0400 Diastolic blood pressure 66 mm[Hg] Ma Sand Work Phone: [facility] 08-31-2023 10:34-0400 Heart rate 68 /min Ma Sand Work Phone: [facility] 08-31-2023 10:34-0400 Respiratory rate 18 /min Ma Sand Work Phone: [facility] 08-31-2023 10:34-0400 SaO2% (BldA) [Mass fraction] 99 % Ma Sand Work Phone: [facility] 08-31-2023 10:34-0400 Systolic blood pressure 105 mm[Hg] Ma Sand Work Phone: [facility] 08-05-2023 11:15-0400 Body temperature 97.39 [degF] Ma Sand Work Phone: [facility] 08-05-2023 11:15-0400 Diastolic blood pressure 41 mm[Hg] Ma Sand Work Phone: [facility] 08-05-2023 11:15-0400 Heart rate 68 /min Ma Sand Work Phone: [facility] 08-05-2023 11:15-0400 Respiratory rate 18 /min Ma Sand Work Phone: [facility] 08-05-2023 11:15-0400 SaO2% (BldA) [Mass fraction] 98 % Ma Sand Work Phone: [facility] 08-05-2023 11:15-0400 Systolic blood pressure 98 mm[Hg] Ma Sand Work Phone: [facility] 07-13-2023 11:49-0500 Body temperature 97.5 [degF] Ma Sand Work Phone: [facility] 07-13-2023 11:49-0500 Diastolic blood pressure 74 mm[Hg] Ma Sand Work Phone: [facility] 07-13-2023 11:49-0500 Heart rate 83 /min Ma Sand Work Phone: [facility] 07-13-2023 11:49-0500 Respiratory rate 18 /min Ma Sand Work Phone: [facility] 07-13-2023 11:49-0500 SaO2% (BldA) [Mass fraction] 96 % Ma Sand Work Phone: [facility] 07-13-2023 11:49-0500 Systolic blood pressure 109 mm[Hg] Ma Sand Work Phone: [facility] 07-13-2023 10:01-0500 Diastolic blood pressure 65 mm[Hg] Lois Holm MD Work Phone: [facility] 07-13-2023 10:01-0500 Systolic blood pressure 105 mm[Hg] Lois Holm MD Work Phone: [facility] 07-13-2023 09:41-0500 Body height 170.2 cm Lois Holm MD Work Phone: [facility] 07-13-2023 09:41-0500 Body mass index (BMI) [Ratio] 43.85 kg/m2 Lois Holm MD Work Phone: [facility] 07-13-2023 09:41-0500 Body weight 127.01 kg Lois Holm MD Work Phone: [facility] 07-13-2023 09:41-0500 Heart rate 71 /min Lois Holm MD Work Phone: [facility] 07-06-2023 14:48-0500 Body mass index (BMI) [Ratio] 41.81 kg/m2 Juan Luis Richardson MD Work Phone: [facility] 07-06-2023 14:48-0500 Body weight 119.3 kg Juan Luis Richradson MD Work Phone: [facility] 06-09-2023 08:45-0500 Body height 170.2 cm Michelle Britton SOLE MOLDER-[employer] REP[employer]ESSOR Work Phone: [facility] 06-09-2023 08:45-0500 Body mass index (BMI) [Ratio] 44.48 kg/m2 Michelle Britton APRN-CAR REPOSSESSOR Work Phone: [facility] 06-09-2023 08:45-0500 Body weight 128.82 kg Michelle Britton APRN-CAR REPOSSESSOR Work Phone: [facility] 06-09-2023 08:45-0500 Diastolic blood pressure 82 mm[Hg] Michelle Britton APRN-CAR REPOSSESSOR Work Phone: [facility] 06-09-2023 08:45-0500 Heart rate 80 /min Michelle Britton SOLE M[employer]DER[employer] REP[employer]ESSOR Work Phone: [facility] 06-09-2023 08:45-0500 Systolic blood pressure 146 mm[Hg] Michelle Britton SOLE M[employer]DER-[employer] REPOSSESSOR Work Phone: [facility] 05-26-2023 17:17-0500 Body weight 123.83 kg Christie Phan MD Work Phone: [facility] 04-26-2023 14:42-0500 Body weight 125.19 kg Christie Phan MD Work Phone: [facility] 03-19-2023 11:16-0400 Body temperature 97.7 [degF] Ma Sand Work Phone: [facility] 03-19-2023 11:16-0400 Diastolic blood pressure 54 mm[Hg] Ma Sand Work Phone: [facility] 03-19-2023 11:16-0400 Heart rate 75 /min Ma Sand Work Phone: [facility] 03-19-2023 11:16-0400 Respiratory rate 16 /min Ma Sand Work Phone: [facility] 03-19-2023 11:16-0400 SaO2% (BldA) [Mass fraction] 96 % Ma Sand Work Phone: [facility] 03-19-2023 11:16-0400 Systolic blood pressure 111 mm[Hg] Ma Sand Work Phone: [facility] 02-19-2023 10:56-0400 Body height 170.2 cm Jose Najera MD Work Phone: [facility] 02-19-2023 10:56-0400 Body temperature 97.39 [degF] Jose Najera MD Work Phone: [facility] 02-19-2023 10:56-0400 Body weight 120.75 kg Jose Najera MD Work Phone: [facility] 02-19-2023 10:56-0400 Diastolic blood pressure 69 mm[Hg] Jose Najera MD Work Phone: [facility] 02-19-2023 10:56-0400 Heart rate 110 /min Jose Najera MD Work Phone: [facility] 02-19-2023 10:56-0400 Respiratory rate 16 /min Jose aNjera MD Work Phone: [facility] 02-19-2023 10:56-0400 SaO2% (BldA) [Mass fraction] 96 % Jose Najera MD Work Phone: [facility] 02-19-2023 10:56-0400 Systolic blood pressure 132 mm[Hg] Jose Najera MD Work Phone: [facility] 01-22-2023 12:09-0400 Diastolic blood pressure 76 mm[Hg] Ma Sand Work Phone: [facility] 01-22-2023 12:09-0400 Systolic blood pressure 107 mm[Hg] Ma Sand Work Phone: [facility] 01-22-2023 12:08-0400 Body temperature 97.59 [degF] Ma Sand Work Phone: [facility] 01-22-2023 12:08-0400 Heart rate 102 /min Ma Sand Work Phone: [facility] 01-22-2023 12:08-0400 Respiratory rate 16 /min Ma Sand Work Phone: [facility] 01-22-2023 12:08-0400 SaO2% (BldA) [Mass fraction] 97 % Ma Sand Work Phone: [facility] 11-19-2022 11:00-0400 Body temperature 97.2 [degF] Ma Sand Work Phone: [facility] 11-19-2022 11:00-0400 Diastolic blood pressure 54 mm[Hg] Ma Sand Work Phone: [facility] 11-19-2022 11:00-0400 Heart rate 98 /min Ma Sand Work Phone: [facility] 11-19-2022 11:00-0400 Respiratory rate 16 /min Ma Sand Work Phone: [facility] 11-19-2022 11:00-0400 SaO2% (BldA) [Mass fraction] 98 % Ma Sand Work Phone: [facility] 11-19-2022 11:00-0400 Systolic blood pressure 126 mm[Hg] Ma Sand Work Phone: [facility] 10-22-2022 11:51-0400 Body height 170.2 cm Ma Sand Work Phone: [facility] 10-22-2022 11:51-0400 Body weight 120.66 kg Ma Sand Work Phone: [facility] 10-22-2022 11:51-0400 Respiratory rate 16 /min Ma Sand Work Phone: [facility] 10-22-2022 10:50-0400 Body height 170.2 cm Jose Najera MD Work Phone: [facility] 10-22-2022 10:50-0400 Body temperature 97 [degF] Jose Najera MD Work Phone: [facility] 10-22-2022 10:50-0400 Body weight 120.75 kg Jose Najera MD Work Phone: [facility] 10-22-2022 10:50-0400 Diastolic blood pressure 55 mm[Hg] Jose Najera MD Work Phone: [facility] 10-22-2022 10:50-0400 Heart rate 78 /min Jose Najera MD Work Phone: [facility] 10-22-2022 10:50-0400 Respiratory rate 16 /min Jose Najera MD Work Phone: [facility] 10-22-2022 10:50-0400 SaO2% (BldA) [Mass fraction] 98 % Jose Najera MD Work Phone: [facility] 10-22-2022 10:50-0400 Systolic blood pressure 132 mm[Hg] Jose Najera MD Work Phone: [facility] 09-24-2022 10:22-0400 Body height 170.2 cm Ma Sand Work Phone: [facility] 09-24-2022 10:22-0400 Body temperature 97 [degF] Ma Sand Work Phone: [facility] 09-24-2022 10:22-0400 Body weight 120.2 kg Ma Sand Work Phone: [facility] 09-24-2022 10:22-0400 Diastolic blood pressure 81 mm[Hg] Ma Sand Work Phone: [facility] 09-24-2022 10:22-0400 Heart rate 77 /min Ma Sand Work Phone: [facility] 09-24-2022 10:22-0400 Respiratory rate 16 /min Ma Sand Work Phone: [facility] 09-24-2022 10:22-0400 SaO2% (BldA) [Mass fraction] 97 % Ma Sand Work Phone: [facility] 09-24-2022 10:22-0400 Systolic blood pressure 116 mm[Hg] Ma Sand Work Phone: [facility] 09-07-2022 14:03-0400 Body weight 120.2 kg Christie Phan MD Work Phone: [facility] 08-27-2022 09:45-0400 Body height 170.2 cm Wilmer Driver APRN.CAR REPOSSESSOR Work Phone: [facility] 08-27-2022 09:45-0400 Body temperature 97.7 [degF] Wilmer Driver APRN.CAR REPOSSESSOR Work Phone: [facility] 08-27-2022 09:45-0400 Body weight 118.66 kg Wilmer Driver SOLE MOLDER.[employer] REPOSSESSOR Work Phone: [facility] 08-27-2022 09:45-0400 Diastolic blood pressure 55 mm[Hg] Wilmer Driver SOLE MOLDER.[employer] REPOSSESSOR Work Phone: [facility] 08-27-2022 09:45-0400 Heart rate 63 /min Wilmer Driver SOLE MOLDER.[employer] REPOSSESSOR Work Phone: [facility] 08-27-2022 09:45-0400 Respiratory rate 16 /min Wilmer Driver SOLE MOLDER.[employer] REPOSSESSOR Work Phone: [facility] 08-27-2022 09:45-0400 SaO2% (BldA) [Mass fraction] 96 % Wilmer Driver SOLE MOLDER.[employer] REPOSSESSOR Work Phone: [facility] 08-27-2022 09:45-0400 Systolic blood pressure 117 mm[Hg] Wilmer Driver SOLE MOLDER.[employer] REPOSSESSOR Work Phone: [facility] 05-20-2022 13:28-0500 Body height 170.2 cm Jose Najera MD Work Phone: [facility] 05-20-2022 13:28-0500 Body temperature 97.7 [degF] Jose Najera MD Work Phone: [facility] 05-20-2022 13:28-0500 Diastolic blood pressure 70 mm[Hg] Jose Najera MD Work Phone: [facility] 05-20-2022 13:28-0500 Heart rate 93 /min Jose Najera MD Work Phone: [facility] 05-20-2022 13:28-0500 Respiratory rate 16 /min Jose Najera MD Work Phone: [facility] 05-20-2022 13:28-0500 SaO2% (BldA) [Mass fraction] 97 % Jose Najera MD Work Phone: [facility] 05-20-2022 13:28-0500 Systolic blood pressure 127 mm[Hg] Jose Najera MD Work Phone: [facility] 03-18-2022 10:49-0400 Body height 170.2 cm Jose Najera MD Work Phone: [facility] 03-18-2022 10:49-0400 Body temperature 97.81 [degF] Jose Najera MD Work Phone: [facility] 03-18-2022 10:49-0400 Body weight 113.4 kg Jose Najera MD Work Phone: [facility] 03-18-2022 10:49-0400 Diastolic blood pressure 49 mm[Hg] Jose Najera MD Work Phone: [facility] 03-18-2022 10:49-0400 Heart rate 86 /min Jose Najera MD Work Phone: [facility] 03-18-2022 10:49-0400 Respiratory rate 16 /min Jose Najera MD Work Phone: [facility] 03-18-2022 10:49-0400 SaO2% (BldA) [Mass fraction] 98 % Jose Najera MD Work Phone: [facility] 03-18-2022 10:49-0400 Systolic blood pressure 145 mm[Hg] Jose Najera MD Work Phone: [facility] 03-09-2022 11:41-0400 Body height 170.2 cm Christie Phan MD Work Phone: [facility] 03-09-2022 11:41-0400 Body weight 112.49 kg Christie Phan MD Work Phone: [facility] 03-09-2022 11:41-0400 Diastolic blood pressure 100 mm[Hg] Christie Phan MD Work Phone: [facility] 03-09-2022 11:41-0400 Systolic blood pressure 158 mm[Hg] Christie Phan MD Work Phone: [facility] 03-04-2022 10:39-0400 Body height 170.2 cm Jose Najera MD Work Phone: [facility] 03-04-2022 10:39-0400 Body temperature 97.5 [degF] Jose Najera MD Work Phone: [facility] 03-04-2022 10:39-0400 Body weight 112.76 kg Jose Najera MD Work Phone: [facility] 03-04-2022 10:39-0400 Diastolic blood pressure 48 mm[Hg] Jose Najera MD Work Phone: [facility] 03-04-2022 10:39-0400 Heart rate 79 /min Jose Najera MD Work Phone: [facility] 03-04-2022 10:39-0400 Respiratory rate 16 /min Jose Najera MD Work Phone: [facility] 03-04-2022 10:39-0400 SaO2% (BldA) [Mass fraction] 99 % Jose Najera MD Work Phone: [facility] 03-04-2022 10:39-0400 Systolic blood pressure 132 mm[Hg] Jose Najera MD Work Phone: [facility] 11-26-2021 16:00-0400 Body height 168.91 cm Mirela Kelsey Other [email or web address] Other 11-26-2021 16:00-0400 Body mass index (BMI) [Ratio] 37.68 kg/m2 Mirela Kelsey Other [employer] Other 11-26-2021 16:00-0400 Body temperature 98.4 [degF] Mirela Kelsey Other [employer] Other 11-26-2021 16:00-0400 Body weight 107.5 kg Mirela Buffy Other [employer] Other 11-26-2021 16:00-0400 Diastolic blood pressure 61 mm[Hg] Mirela Buffy Other [employer] Other 11-26-2021 16:00-0400 Systolic blood pressure 115 mm[Hg] Mirela Kelsey Other [employer] Other 10-24-2021 08:18-0400 Body weight 108.86 kg Lynne Ni MD Work Phone: [facility] 10-24-2021 08:18-0400 Diastolic blood pressure 42 mm[Hg] Lynne Ni MD Work Phone: [facility] 10-24-2021 08:18-0400 Heart rate 72 /min Lynne Ni MD Work Phone: [facility] 10-24-2021 08:18-0400 Systolic blood pressure 106 mm[Hg] Lynne Ni MD Work Phone: [facility] 10-15-2021 15:45-0400 Body height 168.91 cm Mirela Kelsey Other [email or web address] Other 10-15-2021 15:45-0400 Body mass index (BMI) [Ratio] 38.31 kg/m2 Mirela Kelsey Other [employer] Other 10-15-2021 15:45-0400 Body temperature 98.1 [degF] Mirela Kelsey Other [employer] Other 10-15-2021 15:45-0400 Body weight 109.32 kg Mirela Kelsey Other [employer] Other 10-15-2021 15:45-0400 Diastolic blood pressure 60 mm[Hg] Mirela Kelsey Other [employer] Other 10-15-2021 15:45-0400 Systolic blood pressure 114 mm[Hg] Mirela Kelsey Other [employer] Other 09-11-2021 15:15-0400 Body height 168.91 cm Mirela Kelsey Other [employer] Other 09-11-2021 15:15-0400 Body mass index (BMI) [Ratio] 37.99 kg/m2 Mirela Kelsey Other [employer] Other 09-11-2021 15:15-0400 Body temperature 97.9 [degF] Mirela Kelsey Other [employer] Other 09-11-2021 15:15-0400 Body weight 108.41 kg Mirela Kelsey Other [employer] Other 09-11-2021 15:15-0400 Diastolic blood pressure 83 mm[Hg] Mirela Kelsey Other [employer] Other 09-11-2021 15:15-0400 Systolic blood pressure 144 mm[Hg] Mirela Kelsey Other [employer] Other 10-07-2020 12:45-0400 Diastolic blood pressure 78 mm[Hg] [employer] [employer] Phone: 10-07-2020 12:45-0400 Heart rate 68 /min [employer] Phone: 10-07-2020 12:45-0400 SaO2% (BldA) [Mass fraction] 99 % [employer] Phone: 10-07-2020 12:45-0400 Systolic blood pressure 112 mm[Hg] [facility] [employer] Work Phone: 10-07-2020 10:45-0400 Respiratory rate 22 /min [facility] [employer] Phone: 10-07-2020 09:01-0400 Body height 170.2 cm [employer] [employer] Phone: 10-07-2020 09:01-0400 Body mass index (BMI) [Ratio] 36.65 kg/m2 [employer] Phone: 10-07-2020 09:01-0400 Body temperature 97.81 [degF] [employer] Phone: 10-07-2020 09:01-0400 Body weight 106.14 kg [employer] [employer] Phone: Encounters Encounter Date Encounter Type Care Provider Facility Start: 12-04-2023 End: 12-04-2023 ambulatory DIGNA PRICE Not Available Start: 11-29-2023 End: 11-29-2023 ambulatory MADELAINE Batista JOSY Facility:[facility] Start: 11-29-2023 End: 11-29-2023 Nursing evaluation of patient and report Ma Nurse Dre Marshall Work Phone: Hematology/Oncology Comment on above: Elevated sed rate (P rimary Dx); Megaloblastic anemia due to vitamin B12 deficiency Start: 11-25-2023 ambulatory Jose nelson MD Work Phone: Hematology/Oncology Comment on above: Folic acid Start: 11-24-2023 End: 11-24-2023 ambulatory MADELAINE Lynne JOSY Facility:[facility] Start: 11-15-2023 End: 11-15-2023 Specialty Pharmacy Aidee Quintanilla [facility] Comment on above: SPP Inflammatory Con ditions - Medication Refill (Benlysta - [facility] 09/2024) Start: 11-11-2023 Refill Lynne Ni MD Work Phone: Rheumatology Comment on above: Refill Request Start: 11-08-2023 End: 11-08-2023 ambulatory SHARRON ROGERS Not Available Start: 11-04-2023 End: 11-04-2023 ambulatory [facility] Work Phone: Start: 11-04-2023 End: 11-04-2023 Patient encounter procedure [facility] Physician [facility] Work Phone: Start: 10-27-2023 End: 10-27-2023 Nursing evaluation of patient and report Ma Nurse Dre Joanna Work Phone: Hematology/Oncology Comment on above: Elevated sed rate (P rimary Dx); Megaloblastic anemia due to vitamin B12 deficiency Start: 10-27-2023 End: 10-28-2023 ambulatory Lynne Ni MD Work Phone: Rheumatology Start: 10-27-2023 Patient encounter procedure Lynne Ni MD Work Phone: Rheumatology Comment on above: Cdiff Start: 10-21-2023 End: 10-21-2023 ambulatory SHARRON ROGERS Not Available Start: 10-20-2023 End: 10-20-2023 ambulatory [facility] Work Phone: Start: 10-20-2023 End: 10-20-2023 Patient encounter procedure [facility] Infectious [facility] Work Phone: Start: 10-12-2023 Specialty Pharmacy Aidee coreas [facility] Comment on above: SPP Inflammatory Con ditions - Medication Refill (Benlysta) Start: 10-05-2023 End: 10-05-2023 ambulatory MADELAINE FERRIS Facility:[facility] Start: 10-05-2023 End: 10-05-2023 Patient encounter [...] of Plaquenil; Long-term use of high-risk medication; 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; Raynaud's disease [...] B12 deficiency Start: 09-30-2023 End: 09-30-2023 ambulatory MADELAINE FERRIS Facility:[facility] Start: 09-22-2023 End: 09-22-2023 Patient encounter procedure [facility] Physician [facility] Gastroenterology Work Phone: Start: 09-13-2023 End: 09-13-2023 Specialty Pharmacy iAdee Quintanilla [facility] Comment on above: [...] sed rate Start: 08-31-2023 End: 08-[facility]-2023 [facility] Start: 08-12-2023 Specialty Pharmacy Aidee Quintanilla [facility] Comment on above: SPP Inflammatory Con ditions - Medication Refill (Benlysta ) Start: 08-10-2023 End: 08-10-2023 ambulatory GORDO BARFIELD Not Available Start: 08-05-2023 End: 08-05-2023 ambulatory MADELAINE FERRIS Facility:[facility] Start: 08-05-2023 End: 08-05-2023 Nursing evaluation of patient and report Cele Marshall Work Phone: Hematology/Oncology Comment on above: 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); Elevated sed rate Start: 07-28-2023 Non-patient / Non-visit [facility] Gastroenterology Work Phone: Start: 07-15-2023 End: 07-15-2023 ambulatory BERNABE ENGLISH Not Available Start: 07-13-2023 End: 07-13-2023 [facility] Start: 07-13-2023 End: 07-13-2023 Nursing evaluation of patient and report Cele Marshall Work Phone: Hematology/Oncology Comment on above: 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); Elevated sed rate SPP Inflammatory Con ditions - Medication Refill (Benlysta ) Start: 07-13-2023 End: 07-13-2023 Office outpatient new 45 minutes Lois Holm MD Work Phone: [facility] Comment on above: Shortness of breath (Primary Dx); Paroxysmal supraventricular tachycardia; PAC (premature atrial contraction); Current smoker; Systemic lupus erythematosus, unspecified SLE type, unspecified organ involvement status ([facility]); Palpitations; Obstructive sleep apnea syndrome; Morbid obesity ([facility]); Bilateral lower extremity edema Start: 07-06-2023 End: 07-06-2023 Office outpatient visit 25 minutes Juan Luis Richardson MD Work Phone: [facility] Comment on above: Autoimmune disease ( CMS/HCC) (Primary Dx); Autonomic dysfunction; Lumbosacral radiculopathy; Bilateral leg weakness Start: 07-06-2023 End: 07-06-2023 ambulatory JUAN LUIS RICHARDSON Not Available Start: 07-05-2023 Chart abstracting Juan Luis ramirez MD Work Phone: [facility] Start: 06-10-2023 End: 06-10-2023 ambulatory MADELAINE M HOY Facility:[facility] Start: 06-09-2023 End: 06-09-2023 ambulatory [facility] Ambulatory Start: 06-09-2023 End: 06-09-2023 Office outpatient new 60 minutes [facility] SO[employer] M[employer] REPOSSESSOR Work Phone: [facility] Comment on above: Irregular heart rate (Primary Dx); Essential hypertension; Autonomic dysfunction; Obstructive sleep apnea syndrome; Primary hypertension Start: 06-03-2023 End: 06-03-2023 ambulatory MADELAINE M HOY Facility:[facility] Start: 06-01-2023 End: 06-01-2023 ambulatory MADELAINE M HOY Facility:[facility] Start: 06-01-2023 End: 06-01-2023 ambulatory SHARRON ROGERS Not Available Start: 05-26-2023 End: 05-26-2023 Office outpatient visit 40 minutes Christie Phan MD Work Phone: [facility] Comment on above: Obesity, Class III, BMI >= 40 (Primary Dx); Other chronic pain Start: 05-26-2023 End: 05-26-2023 ambulatory MADELAINE M HOY Facility:[facility] Start: 05-10-2023 End: 05-10-2023 ambulatory MADELAINE M HOY Facility:[facility] Start: 05-06-2023 End: 05-06-2023 ambulatory SHARRON CAVAZOSI Not Available Start: 04-26-2023 End: 04-26-2023 Office [...] ROGERS Not Available Start: 04-16-2023 End: 04-16-2023 Nursing evaluation of patient and report Cele Marshall Work Phone: Hematology/Oncology Comment on above: 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); Elevated sed rate Start: 04-16-2023 End: 04-16-2023 ambulatory [facility] Facility:[facility] Start: 04-09-2023 End: 04-09-2023 ambulatory [facility] Facility:[facility] Start: 03-19-2023 End: 03-19-2023 ambulatory [facility] Facility:[facility] Start: 03-19-2023 End: 03-19-2023 Nursing evaluation of patient and report Cele Marshall Work Phone: Hematology/Oncology Comment on above: 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); Elevated sed rate Start: 03-16-2023 [facility] Work Phone: Neurology Comment on above: CMN Start: 03-11-2023 End: 03-11-2023 ambulatory [facility] Facility:[facility] Start: 03-11-2023 End: 03-11-2023 Nursing evaluation of patient and report Nurse Morgan Fu Work Phone: Rheumatology Comment on above: Systemic lupus eryth ematosus, unspecified SLE type, unspecified organ involvement status (HCC) (Primary Dx) Start: 03-03-2023 End: 03-03-2023 ambulatory [facility] Facility:[facility] Start: 03-01-2023 Telephone encounter Lynne shaw MD Work Phone: Rheumatology Comment on above: Results (Eye Exam) Start: 02-19-2023 End: 02-19-2023 Nursing evaluation of patient and report Ma Dre Marshall Work Phone: Hematology/Oncology Comment on above: 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); Elevated sed rate Start: 02-19-2023 End: 02-19-2023 ambulatory [facility] Facility:[facility] Start: 02-19-2023 End: 02-19-2023 Office outpatient [...] 02-11-2023 End: 02-11-2023 ambulatory [facility] Facility:[facility] Start: 02-04-2023 End: 02-04-2023 ambulatory Lynne [...] deficiency; Elevated sed rate; Bilateral wrist pain; custodial 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; Steroid-induced osteoporosis; [...] with patient Lynne Ni MD Work Phone: [facility] Start: 01-28-2023 Refill Christie Hays Work Phone: [...] sed rate Start: 01-22-2023 End: 01-22-2023 ambulatory [facility] Facility:[facility] Start: 01-17-2023 Orders Only Jose nelson [...] with patient Misty Nelson MD Work Phone: [facility] Start: 12-29-2022 End: 12-29-2022 ambulatory [facility] Facility:[facility] Start: 12-24-2022 Refill Christie Hays Work Phone: Integrated Medicine Comment on above: Refill Request Start: 12-18-2022 Telephone encounter Lidia Argueta RN Work Phone: Hematology/Oncology Comment on above: Care Coordination (a ppointment) Start: 12-17-2022 End: 12-18-2022 ambulatory Wilmer Driver SOLE MOLDER.[employer] REPOSSESSOR Work Phone: Hematology/Oncology Comment on above: 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); Chronic fatigue and malaise Start: 12-17-2022 End: 12-18-2022 Telemedicine consultation with patient Wilmer Driver APRN.CAR REPOSSESSOR Work Phone: [facility] Start: 12-16-2022 Telephone encounter Pamella bernstein RN Work Phone: Hematology/Oncology Comment on above: Appointment Start: 12-08-2022 End: 12-08-2022 ambulatory Jose Najera MD Work Phone: Hematology/Oncology Comment on above: Test results Start: 12-08-2022 Telephone encounter Enma Osuna Hematology/Oncology Comment on above: Results Start: 11-22-2022 ambulatory Lynne Ni MD Work Phone: Rheumatology Comment on above: update Start: 11-19-2022 End: 11-19-2022 Nursing evaluation of patient and report Cele Marshall Work Phone: Hematology/Oncology Comment on above: 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); Elevated sed rate Start: 10-22-2022 End: 10-22-2022 Nursing evaluation of [...] Facility: Start: 09-08-2022 Telephone encounter Angelia king [facility] Compl[facility] Comment on [...] Start: 08-27-2022 End: 08-27-2022 ambulatory Wilmer Driver APRN.CAR REPOSSESSOR Work Phone: Hematology/Oncology Comment on above: 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); Elevated sed rate; High total serum IgM; Chronic fatigue and malaise; JOSE RAFAEL (obstructive sleep apnea) Start: 08-27-2022 End: 08-27-2022 Patient encounter procedure Wilmer Driver APRN.CAR REPOSSESSOR Work Phone: [facility] Start: 08-19-2022 Telephone encounter Lynne shaw MD Work Phone: Rheumatology Comment on above: Results Start: 08-15-2022 ambulatory Lynne Ni MD Work Phone: Rheumatology Comment on above: update Start: 08-10-2022 Refill Christie Hays Work Phone: [facility] Comment on above: Refill Request Start: 07-27-2022 End: 07-27-2022 ambulatory Lexus Heck APRN.CAR REPOSSESSOR Work Phone: Neurology Comment on above: JOSE RAFAEL (obstructive sle ep apnea) (Primary Dx) Start: 07-27-2022 End: 07-27-2022 Telemedicine consultation with patient Lexus Heck APRN.CAR REPOSSESSOR Work Phone: [facility] Start: 07-24-2022 ambulatory Lynne Ni MD Work Phone: Rheumatology Comment on above: Blood work Start: 07-24-2022 Telephone encounter Jose hooker MD Work Phone: Hematology/Oncology Comment on above: Orders (Lab Orders E xpire Before Appointment) Start: 07-21-2022 ambulatory Lawanda Miranda MD Work Phone: [facility] Start: 07-21-2022 Patient encounter procedure Lawanda [...] m caregiver Christie Phan MD Work Phone: [facility] Start: 03-18-2022 End: 03-18-2022 Patient encounter procedure Jose Najera MD Work Phone: [facility] Start: 03-12-2022 End: 03-13-[address] MADELAINE FERRIS . Facility:[facility] Start: 03-10-2022 End: 03-10-2022 ambulatory Tiffany Head DO Work Phone: Infectious Disease Comment on above: results Raised level of immu noglobulins (Primary Dx); Wound healing, delayed; Current smoker Start: 03-10-2022 E-mail encounter hansa m caregiver Tiffany Head DO Work Phone: [facility] Start: 03-10-2022 End: 03-10-2022 Telemedicine consultation with patient Misty Nelson MD Work Phone: [facility] Start: 03-09-2022 End: 03-10-2022 ambulatory GAY ENCISO Facility: Start: 03-09-2022 End: 03-09-2022 Office consultation new/estab patient 80 min Christie Phan MD Work Phone: [facility] Comment on above: Obesity, Class II, B IN 35-39.9 (Primary Dx); Somnolence, daytime; Chronic fatigue [...] with patient Tiffany Head DO Work Phone: [facility] Start: 02-14-2022 End: 02-15-[address] MADELAINE FERRIS . Facility:[facility] Start: 11-26-2021 End: 11-26-2021 ambulatory Mirela Kelsey Other [email or web address] Other Start: 11-26-2021 Office outpatient vi sit [...] 10-15-2021 End: 10-15-2021 ambulatory Mirela Kelsey Other [email or web address] Other Start: 10-15-2021 Office outpatient vi sit 25 minutes Mirela Kelsey [facility] Start: 10-03-2021 End: [address] MIRELA KELSEY Facility:[facility] Start: 09-18-2021 End: 09-18-2021 ambulatory Mirela Kelsey Other [email or web address] Other Start: 09-18-2021 Telephone encounter Mirela Kelsey [facility] Start: 09-11-2021 End: 09-11-2021 ambulatory Mirela Kelsey Other [email or web address] Other Start: 09-11-2021 Office outpatient ne w 45 minutes Mirela Buffy [facility] Start: 10-07-2020 End: 10-08-2020 ambulatory JAREN HOLLEY [facility] Start: 10-07-2020 End: 10-07-2020 Subsequent hospital visit by physician [facility] [employer] [facility]m [facility] [employer] Comment on above: Arrived Start: 09-17-2018 End: 09-17-2018 Patient encounter procedure Bettina Jessy Facility:[facility] Start: 09-14-2018 End: 09-17-2018 Patient encounter procedure [facility] Procedures Date Procedure Procedure Detail Performing Clinician Start: 07-13-2023 ECG 12-LEAD MICHELLE NAGE L Start: 07-13-2023 Ecg routine ecg w/le ast 12 lds w/i&r Lois Holm MD Work Phone: Start: 06-09-2023 ECG 12-LEAD MICHELLE NAGE L Start: 06-09-2023 Ecg routine ecg w/le ast 12 lds w/i&r Michelle Britton SOLE MOLDER-CAR REPOSSESSOR Work Phone: Start: 10-07-2020 End: 10-07-2020 Cardiac [...] 03-17-2025 Diabetes mellitus screening Diabetes Screening [facility] Start: 07-13-2024 End: 07-13-2024 Patient encounter procedure 07/13/2024 9:20 AM EST Office Visit [address] [place] [address] Lois Holm MD [address] [facility] [address] [place] [address] [facility] Start: 01-24-2024 Influenza vaccination Influenza Vaccine (#1) [facility] Comment on above: Postponed from 01/22/2023 (Patient Refus ed) Start: 01-23-2024 Influenza vaccination [facility] Start: 12-13-2023 End: 12-13-2023 Specialty Pharmacy 12/13/2023 10:00 AM EDT Specialty Pharmacy [facility] [employer] [facility] [place] [address] Pharmacist, [facility] [address] [place] [id number] refill - benlysta- NCA - pa exp: 02/04/24- [facility] Comment on above: refill - benlysta- NCA 09/2024-- pa exp: 02/04/24- Start: 12-10-2023 End: 12-10-2023 Follow-up encounter 12/10/2023 10:45 AM EDT Visit (SP) Office Hematology/Oncology [address] [place] [address] Jose Najera MD [address] [place] [address] 13 week follow up, labs 1 week before Hematology/Oncology Comment on above: 13 week follow up, labs 1 week before Start: 12-04-2023 End: 09-03-2024 25-hydroxyvitamin D3 [Mass/volume] in Serum or Plasma VITAMIN D 25 HYDROXY Lab Routine Vitamin D deficiency Expected: 12/04/2023 (Approximate), Expires: 09/03/2024 [facility] Work Phone: Comment on above: Expected: 12/04/2023 (Approximate), Expi res: 09/03/2024 Start: 12-04-2023 End: 09-03-2024 C reactive protein [Mass/volume] in Serum or Plasma C-REACTIVE PROTEIN Lab Routine Elevated sed rate Elevated C-reactive protein (CRP) Expected: 12/04/2023 (Approximate), Expires: 09/03/2024 [facility] Work Phone: Comment on above: Expected: 12/04/2023 (Approximate), Expi res: 09/03/2024 Start: 12-04-2023 End: 09-03-2024 CBC panel - Blood by Automated count COMPLETE BLOOD COUNT Lab Routine Anemia of chronic disease Expected: 12/04/2023 (Approximate), Expires: 09/03/2024 [facility] Work Phone: Comment on above: Expected: 12/04/2023 (Approximate), Expi res: 09/03/2024 Start: 12-04-2023 End: 09-03-2024 Comprehensive metabolic 2000 panel - Serum or Plasma COMPREHENSIVE METABOLIC PANEL Lab Routine Elevated LFTs Expected: 12/04/2023 (Approximate), Expires: 09/03/2024 [facility] Work Phone: Comment on above: Expected: 12/04/2023 (Approximate), Expi res: 09/03/2024 Start: 12-04-2023 End: 09-03-2024 Erythrocyte sedimentation rate SEDIMENTATION RATE, WESTERGREN Lab Routine Elevated sed rate Elevated C-reactive protein (CRP) Expected: 12/04/2023 (Approximate), Expires: 09/03/2024 [facility] Work Phone: Comment on above: Expected: 12/04/2023 (Approximate), Expi res: 09/03/2024 Start: 12-03-2023 End: 12-03-2023 Nursing evaluation of patient and report 12/03/2023 11:00 AM EDT Nurse Visit Hematology/Oncology [address] [place] [address] Cele Marshall Nurse Dre [address] [address] b12 Hematology/Oncology Comment on above: b12 Start: 12-03-2023 End: 12-03-2023 Patient encounter procedure 12/03/2023 10:45 AM EDT Office Visit [facility] [address] [place] [address] lab [facility] Comment on above: lab Start: 12-02-2023 End: 09-08-2024 CBC W Auto Differential panel - Blood COMPLETE BLOOD COUNT AND DIFFERENTIAL Lab Routine Megaloblastic anemia due to vitamin B12 deficiency High total serum IgM Expected: 12/02/2023 (Approximate), Expires: 09/08/2024 [facility] Work Phone: Comment on above: Expected: 12/02/2023 (Approximate), Expi res: 09/08/2024 Start: 12-02-2023 End: 09-08-2024 Cobalamin (Vitamin B12) [Mass/volume] in Serum or Plasma VITAMIN B12 Lab Routine Megaloblastic anemia due to vitamin B12 deficiency High total serum IgM Expected: 12/02/2023 (Approximate), Expires: 09/08/2024 [facility] Work Phone: Comment on above: Expected: 12/02/2023 (Approximate), Expi res: 09/08/2024 Start: 12-02-2023 End: 09-08-2024 Comprehensive metabolic 2000 panel - Serum or Plasma COMPREHENSIVE METABOLIC PANEL Lab Routine Megaloblastic anemia due to vitamin B12 deficiency High total serum IgM Expected: 12/02/2023 (Approximate), Expires: 09/08/2024 [facility] Work Phone: Comment on above: Expected: 12/02/2023 (Approximate), Expi res: 09/08/2024 Start: 12-02-2023 End: 03-02-2024 Erythrocyte sedimentation rate SEDIMENTATION RATE, WESTERGREN Lab Routine Megaloblastic anemia due to vitamin B12 deficiency High total serum IgM Expected: 12/02/2023 (Approximate), Expires: 03/02/2024 [facility] Work Phone: Comment on above: Expected: 12/02/2023 (Approximate), Expi res: 03/02/2024 Start: 12-02-2023 End: 09-08-2024 Ferritin [Mass/volume] in Serum or Plasma FERRITIN Lab Routine Megaloblastic anemia due to vitamin B12 deficiency High total serum IgM Expected: 12/02/2023 (Approximate), Expires: 09/08/2024 [facility] Work Phone: Comment on above: Expected: 12/02/2023 (Approximate), Expi res: 09/08/2024 Start: 12-02-2023 End: 09-08-2024 Folate [Mass/volume] in Serum or Plasma FOLATE, SERUM Lab Routine Megaloblastic anemia due to vitamin B12 deficiency High total serum IgM Expected: 12/02/2023 (Approximate), Expires: 09/08/2024 [facility] Work Phone: Comment on above: Expected: 12/02/2023 (Approximate), Expi res: 09/08/2024 Start: 12-02-2023 End: 03-02-2024 IgA [Mass/volume] in Serum or Plasma IMMUNOGLOBULIN A Lab Routine Megaloblastic anemia due to vitamin B12 deficiency High total serum IgM Expected: 12/02/2023 (Approximate), Expires: 03/02/2024 [facility] Work Phone: Comment on above: Expected: 12/02/2023 (Approximate), Expi res: 03/02/2024 Start: 12-02-2023 End: 03-02-2024 IgE [Units/volume] in Serum or Plasma IMMUNOGLOBULIN E Lab Routine Megaloblastic anemia due to vitamin B12 deficiency High total serum IgM Expected: 12/02/2023 (Approximate), Expires: 03/02/2024 [facility] Work Phone: Comment on above: Expected: 12/02/2023 (Approximate), Expi res: 03/02/2024 Start: 12-02-2023 End: 03-02-2024 IgG [Mass/volume] in Serum or Plasma IMMUNOGLOBULIN G Lab Routine Megaloblastic anemia due to vitamin B12 deficiency High total serum IgM Expected: 12/02/2023 (Approximate), Expires: 03/02/2024 [facility] Work Phone: Comment on above: Expected: 12/02/2023 (Approximate), Expi res: 03/02/2024 Start: 12-02-2023 End: 03-02-2024 IgM [Mass/volume] in Serum or Plasma IMMUNOGLOBULIN M Lab Routine Megaloblastic anemia due to vitamin B12 deficiency High total serum IgM Expected: 12/02/2023 (Approximate), Expires: 03/02/2024 [facility] Work Phone: Comment on above: Expected: 12/02/2023 (Approximate), Expi res: 03/02/2024 Start: 12-02-2023 End: 09-08-2024 Iron and Iron binding capacity panel - Serum or Plasma IRON AND TIBC Lab Routine Megaloblastic anemia due to vitamin B12 deficiency High total serum IgM Expected: 12/02/2023 (Approximate), Expires: 09/08/2024 [facility] Work Phone: Comment on above: Expected: 12/02/2023 (Approximate), Expi res: 09/08/2024 Start: 11-29-2023 End: 11-29-2023 Nursing evaluation of patient and report 11/29/2023 2:15 PM EDT Nurse Visit Hematology/Oncology [address] [place] [address] [place] [address] Cele Marshall Nurse Dre [address] [place] [address] b12 Hematology/Oncology Comment on above: b12 Start: 11-15-2023 End: 11-15-2023 Specialty Pharmacy 11/15/2023 10:00 AM EDT Specialty Pharmacy [facility] [address] [place], [place] [id number] Pharmacist, [facility] [address] [place] [address] [place] [address] refill - benlysta- NCA - pa exp: 02/04/24- [facility] Comment on above: refill - benlysta- NCA - pa exp: 02/04/24- Start: 10-29-2023 End: 10-29-2023 Nursing evaluation of patient and report 10/29/2023 11:00 AM EDT Nurse Visit Hematology/Oncology [address] [place] [address] Cele Marshall Nurse Dre [address] [place] [address] b12 Hematology/Oncology Comment on above: b12 Start: 10-15-2023 End: 10-15-2023 Specialty Pharmacy 10/15/2023 10:00 AM EDT Specialty Pharmacy [facility] [address] [place] [id number] Pharmacist, [facility] [address] [place] [address] [place] [address] refill - benlysta-Thursdays- pa exp: 02/04/24-l/m 10/11 [facility] Comment on above: refill - benlysta-Thursdays- pa exp: 01/22 08/14-l/m 10/11 Start: 10-12-2023 End: 10-12-2023 Specialty Pharmacy 10/12/2023 10:00 AM EDT Specialty Pharmacy [facility] [address] [place] [id number] Pharmacist, [facility] [address] [place] [address] [place] [address] refill - benlysta-Thursdays- pa exp: 02/04/24- [facility] Comment on above: refill - benlysta-Thursdays- pa exp: 01/22 08/14- Start: 10-05-2023 End: 10-05-2023 Patient encounter procedure 10/05/2023 8:00 AM EDT [facility] [address] [place] [address] Lynne Ni MD [address] [facility] [place] [address] 6 mo f/u for Lupus Rheumatology Comment on above: 6 mo f/u for Lupus Start: 10-01-2023 End: 10-01-2023 Nursing evaluation of patient and report 10/01/2023 11:00 AM EDT Nurse Visit Hematology/Oncology [address] [address] Cele Marshall Nurse Dre [address] [place] [address] b12 Hematology/Oncology Comment on above: b12 Start: 09-16-2023 End: 09-16-2023 Specialty Pharmacy 09/16/2023 10:00 AM EDT Specialty Pharmacy [facility] [address] [place] [address] [place] [address] Pharmacist, [facility] [address] [place] [address] [place] [address] refill - benlysta-Thursdays- pa exp: 02/04/24-lvm [facility] Comment on above: refill - benlysta-Thursdays- pa exp: 01/22 08/14-lvm Start: 09-13-2023 End: 09-13-2023 Patient encounter procedure 09/13/2023 9:00 AM EDT Office Visit [facility] [address] [place] [address] Juan Luis Richardson MD [address] [facility] [address] [place] [id number] [facility] Start: 07-19-2023 End: 07-19-2023 Patient encounter procedure [facility] Start: 07-15-2023 End: 07-15-2023 Patient encounter procedure 07/15/2023 10:50 AM EST Office Visit [facility] D[facility] [address] [place] [phone] Bernabe English MD [address] [place] [address] [facility] Start: 07-06-2023 End: 07-06-2023 Patient encounter procedure 07/06/2023 2:30 PM EST Office Visit [facility] [address] [facility] [address] [place] [phone] Juan Luis Richardson MD [address] [facility] [address] [place] [address] [id number] [facility] NE[facility]O 210 Start: 07-06-2023 End: 07-06-2024 Protein electrophoresis, serum Protein electrophoresis, serum Lab Routine Autoimmune disease (CMS/HCC) Autonomic dysfunction Expected: 07/06/2023 (Approximate), Expires: 07/06/2024 [facility] Work Phone: Comment on above: Expected: 07/06/2023 (Approximate), Expi res: 07/06/2024 Start: 07-06-2023 End: 07-06-2024 Protein electrophoresis, urine Protein electrophoresis, urine Lab Routine Autoimmune disease (CMS/HCC) Autonomic dysfunction Expected: 07/06/2023 (Approximate), Expires: 07/06/2024 [facility] Comment on above: Expected: 07/06/2023 (Approximate), Expi res: 07/06/2024 Start: 06-09-2023 End: 06-09-2024 Holter monitor study Holter Or Event [employer] [facility] Routine Irregular heart rate Expected: 06/09/2023 (Approximate), Expires: 06/09/2024 [facility] Work Phone: Comment on above: Expected: 06/09/2023 (Approximate), Expi res: 06/09/2024 Start: 06-09-2023 End: 06-09-2024 Lipid 1996 panel - Serum or Plasma Lipid Panel Lab Routine Primary hypertension Expected: 06/09/2023 (Approximate), Expires: 06/09/2024 [facility] Work Phone: Comment on above: Expected: 06/09/2023 (Approximate), Expi res: 06/09/2024 Start: 06-09-2023 End: 06-09-2024 Thyrotropin [Units/volume] in Serum or Plasma Thyroid Stimulating Hormone Lab Routine Irregular heart rate Expected: 06/09/2023 (Approximate), Expires: 06/09/2024 [facility] Work Phone: Comment on above: Expected: 06/09/2023 (Approximate), Expi res: 06/09/2024 Start: 06-09-2023 End: 06-09-2024 Thyroxine (T4) free [Mass/volume] in Serum or Plasma Thyroxine, Free Lab Routine Irregular heart rate Expected: 06/09/2023 (Approximate), Expires: 06/09/2024 [facility] Work Phone: Comment on above: Expected: [...] D deficiency Expected: 04/25/2023 (Approximate), Expires: 01/25/2024 [facility] Work Phone: Comment on above: Expected: 04/25/2023 (Approximate), Expi res: 01/25/2024 Start: 04-25-2023 End: 01-25-2024 C reactive protein [Mass/volume] in Serum or Plasma C-REACTIVE PROTEIN (CRP) Lab Routine Elevated sed rate Elevated C-reactive protein (CRP) Expected: 04/25/2023 (Approximate), Expires: 01/25/2024 [facility] Work Phone: Comment on above: Expected: 04/25/2023 (Approximate), Expi res: 01/25/2024 Start: 04-25-2023 End: 01-25-2024 CBC panel - Blood by Automated count CBC Lab Routine Anemia of chronic disease Expected: 04/25/2023 (Approximate), Expires: 01/25/2024 [facility] Work Phone: Comment on above: Expected: 04/25/2023 (Approximate), Expi res: 01/25/2024 Start: 04-25-2023 End: 01-25-2024 Comprehensive metabolic 2000 panel - Serum or Plasma COMP METABOLIC PANEL Lab Routine Elevated LFTs Expected: 04/25/2023 (Approximate), Expires: 01/25/2024 [facility] Work Phone: Comment on above: Expected: 04/25/2023 (Approximate), Expi res: 01/25/2024 Start: 04-25-2023 End: 01-25-2024 Erythrocyte sedimentation rate SED RATE WESTERGREN Lab Routine Elevated sed rate Elevated C-reactive protein (CRP) Expected: 04/25/2023 (Approximate), Expires: 01/25/2024 [facility] Work Phone: Comment on above: Expected: 04/25/2023 (Approximate), Expi res: 01/25/2024 Start: 04-20-2023 COVID-19 Vaccine (4 - Pfizer risk series) COVID-19 Vaccine (4 - Pfizer risk series) [facility] Start: 04-20-2023 Covid-19 Vaccine ( season) Covid-19 Vaccine () [facility] Start: 04-20-2023 Covid-19 Vaccine ( season) Covid-19 Vaccine () [facility] Start: 04-16-2023 End: 02-20-2024 CBC W Auto Differential panel - Blood CBC + DIFF Lab Routine Megaloblastic anemia due to vitamin B12 deficiency Elevated sed rate Chronic fatigue and malaise High total serum IgM JOSE RAFAEL (obstructive sleep apnea) Expected: 04/16/2023 (Approximate), Expires: 02/20/2024 [facility] Work Phone: Comment on above: Expected: 04/16/2023 (Approximate), Expi res: 02/20/2024 Start: 04-16-2023 End: 02-20-2024 Cobalamin (Vitamin B12) [Mass/volume] in Serum or Plasma VITAMIN B12 BLOOD Lab Routine Megaloblastic anemia due to vitamin B12 deficiency Elevated sed rate Chronic fatigue and malaise High total serum IgM JOSE RAFAEL (obstructive sleep apnea) Expected: 04/16/2023 (Approximate), Expires: 02/20/2024 [facility] Work Phone: Comment on above: Expected: 04/16/2023 (Approximate), Expi res: 02/20/2024 Start: 04-16-2023 End: 02-20-2024 Comprehensive metabolic 2000 panel - Serum or Plasma COMP METABOLIC PANEL Lab Routine Megaloblastic anemia due to vitamin B12 deficiency Elevated sed rate Chronic fatigue and malaise High total serum IgM JOSE RAFAEL (obstructive sleep apnea) Expected: 04/16/2023 (Approximate), Expires: 02/20/2024 [facility] Work Phone: Comment on above: Expected: 04/16/2023 (Approximate), Expi res: 02/20/2024 Start: 04-16-2023 End: 02-20-2024 Ferritin [Mass/volume] in Serum or Plasma FERRITIN BLD Lab Routine Megaloblastic anemia due to vitamin B12 deficiency Elevated sed rate Chronic fatigue and malaise High total serum IgM JOSE RAFAEL (obstructive sleep apnea) Expected: 04/16/2023 (Approximate), Expires: 02/20/2024 [facility] Work Phone: Comment on above: Expected: 04/16/2023 (Approximate), Expi res: 02/20/2024 Start: 04-16-2023 End: 02-20-2024 Folate [Mass/volume] in Serum or Plasma FOLATE SERUM Lab Routine Megaloblastic anemia due to vitamin B12 deficiency Elevated sed rate Chronic fatigue and malaise High total serum IgM JOSE RAFAEL (obstructive sleep apnea) Expected: 04/16/2023 (Approximate), Expires: 02/20/2024 [facility] Work Phone: Comment on above: Expected: 04/16/2023 (Approximate), Expi res: 02/20/2024 Start: 04-16-2023 End: 02-20-2024 Iron and Iron binding capacity panel - Serum or Plasma IRON + TIBC Lab Routine Megaloblastic anemia due to vitamin B12 deficiency Elevated sed rate Chronic fatigue and malaise High total serum IgM JOSE RAFAEL (obstructive sleep apnea) Expected: 04/16/2023 (Approximate), Expires: 02/20/2024 [facility] Work Phone: Comment on above: Expected: 04/16/2023 (Approximate), Expi res: 02/20/2024 Start: 03-17-2023 Diabetes mellitus screening Diabetes Screening [facility] Start: 03-10-2023 End: 06-09-2023 Insulin [Units/volume] in Serum or Plasma INSULIN ASSAY BLOOD Lab Routine Insulin resistance, unspecified Expected: 03/10/2023, Expires: 06/09/2023 [facility] Work Phone: Comment on above: Expected: 03/10/2023, Expires: Start: 03-10-2023 End: 06-09-2023 INSULIN ANTIBODY BLD INSULIN ANTIBODY BLD Lab Routine Insulin resistance, unspecified Expected: 03/10/2023, Expires: 06/09/2023 [facility] Work Phone: Comment on above: Expected: 03/10/2023, Expires: Start: 02-11-2023 End: 02-08-2024 [id number] [Mass/volume] in Serum or Plasma B2 MICROGLOBULIN B Lab Routine Megaloblastic anemia due to vitamin B12 deficiency High total serum IgM Elevated sed rate Expected: 02/11/2023 (Approximate), Expires: 02/08/2024 [facility] Work Phone: Comment on above: Expected: 02/11/2023 (Approximate), Expi res: 02/08/2024 Start: 02-11-2023 End: 02-08-2024 Calcium.ionized [Moles/volume] in Blood CALCIUM IONIZED BLOOD Lab Routine Megaloblastic anemia due to vitamin B12 deficiency High total serum IgM Elevated sed rate Expected: 02/11/2023 (Approximate), Expires: 02/08/2024 [facility] Work Phone: Comment on above: Expected: 02/11/2023 (Approximate), Expi res: 02/08/2024 Start: 02-11-2023 End: 02-08-2024 CBC W Auto Differential panel - Blood CBC + DIFF Lab Routine Megaloblastic anemia due to vitamin B12 deficiency High total serum IgM Elevated sed rate Expected: 02/11/2023 (Approximate), Expires: 02/08/2024 [facility] Work Phone: Comment on above: Expected: 02/11/2023 (Approximate), Expi res: 02/08/2024 Start: 02-11-2023 End: 02-08-2024 Cobalamin (Vitamin B12) [Mass/volume] in Serum or Plasma VITAMIN B12 BLOOD Lab Routine Megaloblastic anemia due to vitamin B12 deficiency High total serum IgM Elevated sed rate Expected: 02/11/2023 (Approximate), Expires: 02/08/2024 [facility] Work Phone: Comment on above: Expected: 02/11/2023 (Approximate), Expi res: 02/08/2024 Start: 02-11-2023 End: 02-08-2024 Comprehensive metabolic 2000 panel - Serum or Plasma COMP METABOLIC PANEL Lab Routine Megaloblastic anemia due to vitamin B12 deficiency High total serum IgM Elevated sed rate Expected: 02/11/2023 (Approximate), Expires: 02/08/2024 [facility] Work Phone: Comment on above: Expected: 02/11/2023 (Approximate), Expi res: 02/08/2024 Start: 02-11-2023 End: 02-08-2024 Ferritin [Mass/volume] in Serum or Plasma FERRITIN BLD Lab Routine Megaloblastic anemia due to vitamin B12 deficiency High total serum IgM Elevated sed rate Expected: 02/11/2023 (Approximate), Expires: 02/08/2024 [facility] Work Phone: Comment on above: Expected: 02/11/2023 (Approximate), Expi res: 02/08/2024 Start: 02-11-2023 End: 02-08-2024 Folate [Mass/volume] in Serum or Plasma FOLATE SERUM Lab Routine Megaloblastic anemia due to vitamin B12 deficiency High total serum IgM Elevated sed rate Expected: 02/11/2023 (Approximate), Expires: 02/08/2024 [facility] Work Phone: Comment on above: Expected: 02/11/2023 (Approximate), Expi res: 02/08/2024 Start: 02-11-2023 End: 02-08-2024 Iron and Iron binding capacity panel - Serum or Plasma IRON + TIBC Lab Routine Megaloblastic anemia due to vitamin B12 deficiency High total serum IgM Elevated sed rate Expected: 02/11/2023 (Approximate), Expires: 02/08/2024 [facility] Work Phone: Comment on above: Expected: 02/11/2023 (Approximate), Expi res: 02/08/2024 Start: 02-11-2023 End: 04-13-2023 KAPPA/FARMER,FREE,SER KAPPA/FARMER,FREE,SER Lab Routine Megaloblastic anemia due to vitamin B12 deficiency High total serum IgM Elevated sed rate Expected: 02/11/2023 (Approximate), Expires: 04/13/2023 [facility] Work Phone: Comment on above: Expected: 02/11/2023 (Approximate), Expi res: 04/13/2023 Start: 02-11-2023 End: 02-08-2024 Lactate dehydrogenase [Enzymatic activity/volume] in Serum or Plasma LD LACTATE DEHYDRO Lab Routine Megaloblastic anemia due to vitamin B12 deficiency High total serum IgM Elevated sed rate Expected: 02/11/2023 (Approximate), Expires: 02/08/2024 [facility] Work Phone: Comment on above: Expected: 02/11/2023 (Approximate), Expi res: 02/08/2024 Start: 02-11-2023 End: 02-08-2024 MONOCLONAL PROTEIN, SERUM (BLOOD) MONOCLONAL PROTEIN, SERUM (BLOOD) Lab Routine Megaloblastic anemia due to vitamin B12 deficiency High total serum IgM Elevated sed rate Expected: 02/11/2023 (Approximate), Expires: 02/08/2024 [facility] Work Phone: Comment on above: Expected: 02/11/2023 (Approximate), Expi res: 02/08/2024 Start: 02-11-2023 End: 02-08-2024 Phosphate [Mass/volume] in Serum or Plasma PHOSPHORUS INORGANIC Lab Routine Megaloblastic anemia due to vitamin B12 deficiency High total serum IgM Elevated sed rate Expected: 02/11/2023 (Approximate), Expires: 02/08/2024 [facility] Work Phone: Comment on above: Expected: 02/11/2023 (Approximate), Expi res: 02/08/2024 Start: 02-11-2023 End: 02-08-2024 PROTEIN ELECTROPHORESIS SERUM W/INTERP PROTEIN ELECTROPHORESIS SERUM W/INTERP Lab Routine Megaloblastic anemia due to vitamin B12 deficiency High total serum IgM Elevated sed rate Expected: 02/11/2023 (Approximate), Expires: 02/08/2024 [facility] Work Phone: Comment on above: Expected: 02/11/2023 (Approximate), Expi res: 02/08/2024 Start: 02-11-2023 End: 02-08-2024 Urate [Mass/volume] in Serum or Plasma URIC ACID BLOOD Lab Routine Megaloblastic anemia due to vitamin B12 deficiency High total serum IgM Elevated sed rate Expected: 02/11/2023 (Approximate), Expires: 02/08/2024 [facility] Work Phone: Comment on above: Expected: 02/11/2023 (Approximate), Expi res: 02/08/2024 Start: 01-22-2023 Influenza vaccination [facility] Start: 12-17-2022 End: 10-23-2023 CBC W Auto Differential panel - Blood CBC + DIFF Lab Routine Megaloblastic anemia due to vitamin B12 deficiency Expected: 12/17/2022 (Approximate), Expires: 10/23/2023 [facility] Work Phone: Comment on above: Expected: 12/17/2022 (Approximate), Expi res: 10/23/2023 Start: 12-17-2022 End: 10-23-2023 Cobalamin (Vitamin B12) [Mass/volume] in Serum or Plasma VITAMIN B12 BLOOD Lab Routine Megaloblastic anemia due to vitamin B12 deficiency Expected: 12/17/2022 (Approximate), Expires: 10/23/2023 [facility] Work Phone: Comment on above: Expected: 12/17/2022 (Approximate), Expi res: 10/23/2023 Start: 12-17-2022 End: 10-23-2023 Comprehensive metabolic 2000 panel - Serum or Plasma COMP METABOLIC PANEL Lab Routine Megaloblastic anemia due to vitamin B12 deficiency Expected: 12/17/2022 (Approximate), Expires: 10/23/2023 [facility] Work Phone: Comment on above: Expected: 12/17/2022 (Approximate), Expi res: 10/23/2023 Start: 12-17-2022 End: 10-23-2023 Ferritin [Mass/volume] in Serum or Plasma FERRITIN BLD Lab Routine Megaloblastic anemia due to vitamin B12 deficiency Expected: 12/17/2022 (Approximate), Expires: 10/23/2023 [facility] Work Phone: Comment on above: Expected: 12/17/2022 (Approximate), Expi res: 10/23/2023 Start: 12-17-2022 End: 10-23-2023 Folate [Mass/volume] in Serum or Plasma FOLATE SERUM Lab Routine Megaloblastic anemia due to vitamin B12 deficiency Expected: 12/17/2022 (Approximate), Expires: 10/23/2023 [facility] Work Phone: Comment on above: Expected: 12/17/2022 (Approximate), Expi res: 10/23/2023 Start: 12-17-2022 End: 10-23-2023 Iron and Iron binding capacity panel - Serum or Plasma IRON + TIBC Lab Routine Megaloblastic anemia due to vitamin B12 deficiency Expected: 12/17/2022 (Approximate), Expires: 10/23/2023 [facility] Work Phone: Comment on above: Expected: 12/17/2022 (Approximate), Expi res: 10/23/2023 Start: 10-23-2022 End: 12-23-2022 25-hydroxyvitamin D3 [Mass/volume] in Serum or Plasma VITAMIN D 25 HYDROXY Lab Routine Megaloblastic anemia due to vitamin B12 deficiency Elevated sed rate High total serum IgM Chronic fatigue and malaise JOSE RAFAEL (obstructive sleep apnea) Expected: 10/23/2022, Expires: 12/23/2022 [facility] Work Phone: Comment on above: Expected: 10/23/2022, Expires: 3 Start: 10-23-2022 End: 12-23-2022 C reactive protein [Mass/volume] in Serum or Plasma C-REACTIVE PROTEIN (CRP) Lab Routine Megaloblastic anemia due to vitamin B12 deficiency Elevated sed rate High total serum IgM Chronic fatigue and malaise JOSE RAFAEL (obstructive sleep apnea) Expected: 10/23/2022, Expires: 12/23/2022 [facility] Work Phone: Comment on above: Expected: 10/23/2022, Expires: 3 Start: 10-23-2022 End: 12-23-2022 CBC W Auto Differential panel - Blood CBC + DIFF Lab Routine Megaloblastic anemia due to vitamin B12 deficiency Elevated sed rate High total serum IgM Chronic fatigue and malaise JOSE RAFAEL (obstructive sleep apnea) Expected: 10/23/2022, Expires: 12/23/2022 [facility] Work Phone: Comment on above: Expected: 10/23/2022, Expires: Start: 10-23-2022 End: 12-23-2022 Cobalamin (Vitamin B12) [Mass/volume] in Serum or Plasma VITAMIN B12 BLOOD Lab Routine Megaloblastic anemia due to vitamin B12 deficiency Elevated sed rate High total serum IgM Chronic fatigue and malaise JOSE RAFAEL (obstructive sleep apnea) Expected: 10/23/2022, Expires: 12/23/2022 [facility] Work Phone: Comment on above: Expected: 10/23/2022, Expires: 3 Start: 10-23-2022 End: 12-23-2022 Comprehensive metabolic 2000 panel - Serum or Plasma COMP METABOLIC PANEL Lab Routine Megaloblastic anemia due to vitamin B12 deficiency Elevated sed rate High total serum IgM Chronic fatigue and malaise JOSE RAFAEL (obstructive sleep apnea) Expected: 10/23/2022, Expires: 12/23/2022 [facility] Work Phone: Comment on above: Expected: 10/23/2022, Expires: 3 Start: 10-23-2022 End: 12-23-2022 Erythrocyte sedimentation rate SED RATE WESTERGREN Lab Routine Megaloblastic anemia due to vitamin B12 deficiency Elevated sed rate High total serum IgM Chronic fatigue and malaise JOSE RAFAEL (obstructive sleep apnea) Expected: 10/23/2022, Expires: 12/23/2022 [facility] Work Phone: Comment on above: Expected: 10/23/2022, Expires: 3 Start: 10-23-2022 End: 12-23-2022 Lactate dehydrogenase [Enzymatic activity/volume] in Serum or Plasma LD LACTATE DEHYDRO Lab Routine Megaloblastic anemia due to vitamin B12 deficiency Elevated sed rate High total serum IgM Chronic fatigue and malaise JOSE RAFAEL (obstructive sleep apnea) Expected: 10/23/2022, Expires: 12/23/2022 [facility] Work Phone: Comment on above: Expected: 10/23/2022, Expires: Start: 10-23-2022 End: 12-23-2022 MONOCLONAL PROTEIN, SERUM (BLOOD) MONOCLONAL PROTEIN, SERUM (BLOOD) Lab Routine Megaloblastic anemia due to vitamin B12 deficiency Elevated sed rate High total serum IgM Chronic fatigue and malaise JOSE RAFAEL (obstructive sleep apnea) Expected: 10/23/2022, Expires: 12/23/2022 [facility] Work Phone: Comment on above: Expected: 10/23/2022, Expires: Start: 10-23-2022 End: 12-23-2022 PROT ELECT SERUM WITH DANA AND INTERP PROT ELECT SERUM WITH DANA AND INTERP Lab Routine Megaloblastic anemia due to vitamin B12 deficiency Elevated sed rate High total serum IgM Chronic fatigue and malaise JOSE RAFAEL (obstructive sleep apnea) Expected: 10/23/2022, Expires: 12/23/2022 [facility] Work Phone: Comment on above: Expected: 10/23/2022, Expires: Start: 09-19-2022 End: 08-20-2023 CBC panel - Blood by Automated count CBC Lab Routine Anemia of chronic disease Expected: 09/19/2022 (Approximate), Expires: 08/20/2023 [facility] Work Phone: Comment on above: Expected: 09/19/2022 (Approximate), Expi res: 08/20/2023 Start: 09-19-2022 End: 08-20-2023 Comprehensive metabolic 2000 panel - Serum or Plasma COMP METABOLIC PANEL Lab Routine Elevated LFTs Expected: 09/19/2022 (Approximate), Expires: 08/20/2023 [facility] Work Phone: Comment on above: Expected: 09/19/2022 (Approximate), Expi res: 08/20/2023 Start: 09-19-2022 End: 11-19-2022 TPMT PHENOTYPE/ENZYME ACTIVITY TPMT PHENOTYPE/ENZYME ACTIVITY Lab Routine 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 senior care 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 Expected: 09/19/2022 (Approximate), Expires: 11/19/2022 [facility] Work Phone: Comment on above: Expected: 09/19/2022 (Approximate), Expi res: 11/19/2022 Start: 08-28-2022 End: 10-28-2022 25-hydroxyvitamin D3 [Mass/volume] in Serum or Plasma VITAMIN D 25 HYDROXY Lab Routine Megaloblastic anemia due to vitamin B12 deficiency Elevated sed rate High total serum IgM Chronic fatigue and malaise Expected: 08/28/2022 (Approximate), Expires: 10/28/2022 [facility] Work Phone: Comment on above: Expected: 08/28/2022 (Approximate), Expi res: 10/28/2022 Start: 08-28-2022 End: 07-26-2023 [id number] [Mass/volume] in Serum or Plasma B2 MICROGLOBULIN B Lab Routine Megaloblastic anemia due to vitamin B12 deficiency Elevated sed rate High total serum IgM Chronic fatigue and malaise Expected: 08/28/2022 (Approximate), Expires: 07/26/2023 [facility] Work Phone: Comment on above: Expected: 08/28/2022 (Approximate), Expi res: 07/26/2023 Start: 08-28-2022 End: 10-28-2022 C reactive protein [Mass/volume] in Serum or Plasma C-REACTIVE PROTEIN (CRP) Lab Routine Megaloblastic anemia due to vitamin B12 deficiency Elevated sed rate High total serum IgM Chronic fatigue and malaise Expected: 08/28/2022 (Approximate), Expires: 10/28/2022 [facility] Work Phone: Comment on above: Expected: 08/28/2022 (Approximate), Expi res: 10/28/2022 Start: 08-28-2022 End: 07-26-2023 Calcium.ionized [Moles/volume] in Blood CALCIUM IONIZED BLOOD Lab Routine Megaloblastic anemia due to vitamin B12 deficiency Elevated sed rate High total serum IgM Chronic fatigue and malaise Expected: 08/28/2022 (Approximate), Expires: 07/26/2023 [facility] Work Phone: Comment on above: Expected: 08/28/2022 (Approximate), Expi res: 07/26/2023 Start: 08-28-2022 End: 07-26-2023 CBC W Auto Differential panel - Blood CBC + DIFF Lab Routine Megaloblastic anemia due to vitamin B12 deficiency Elevated sed rate High total serum IgM Chronic fatigue and malaise Expected: 08/28/2022 (Approximate), Expires: 07/26/2023 [facility] Work Phone: Comment on above: Expected: 08/28/2022 (Approximate), Expi res: 07/26/2023 Start: 08-28-2022 End: 10-28-2022 Cobalamin (Vitamin B12) [Mass/volume] in Serum or Plasma VITAMIN B12 BLOOD Lab Routine Megaloblastic anemia due to vitamin B12 deficiency Elevated sed rate High total serum IgM Chronic fatigue and malaise Expected: 08/28/2022 (Approximate), Expires: 10/28/2022 [facility] Work Phone: Comment on above: Expected: 08/28/2022 (Approximate), Expi res: 10/28/2022 Start: 08-28-2022 End: 07-26-2023 Comprehensive metabolic 2000 panel - Serum or Plasma COMP METABOLIC PANEL Lab Routine Megaloblastic anemia due to vitamin B12 deficiency Elevated sed rate High total serum IgM Chronic fatigue and malaise Expected: 08/28/2022 (Approximate), Expires: 07/26/2023 [facility] Work Phone: Comment on above: Expected: 08/28/2022 (Approximate), Expi res: 07/26/2023 Start: 08-28-2022 End: 10-28-2022 Erythrocyte sedimentation rate SED RATE WESTERGREN Lab Routine Megaloblastic anemia due to vitamin B12 deficiency Elevated sed rate High total serum IgM Chronic fatigue and malaise Expected: 08/28/2022 (Approximate), Expires: 10/28/2022 [facility] Work Phone: Comment on above: Expected: 08/28/2022 (Approximate), Expi res: 10/28/2022 Start: 08-28-2022 End: 10-28-2022 KAPPA/FARMER,FREE,SER KAPPA/FARMER,FREE,SER Lab Routine Megaloblastic anemia due to vitamin B12 deficiency Elevated sed rate High total serum IgM Chronic fatigue and malaise Expected: 08/28/2022 (Approximate), Expires: 10/28/2022 [facility] Work Phone: Comment on above: Expected: 08/28/2022 (Approximate), Expi res: 10/28/2022 Start: 08-28-2022 End: 07-26-2023 Lactate dehydrogenase [Enzymatic activity/volume] in Serum or Plasma LD LACTATE DEHYDRO Lab Routine Megaloblastic anemia due to vitamin B12 deficiency Elevated sed rate High total serum IgM Chronic fatigue and malaise Expected: 08/28/2022 (Approximate), Expires: 07/26/2023 [facility] Work Phone: Comment on above: Expected: 08/28/2022 (Approximate), Expi res: 07/26/2023 Start: 08-28-2022 End: 07-26-2023 MONOCLONAL PROTEIN, SERUM (BLOOD) MONOCLONAL PROTEIN, SERUM (BLOOD) Lab Routine Megaloblastic anemia due to vitamin B12 deficiency Elevated sed rate High total serum IgM Chronic fatigue and malaise Expected: 08/28/2022 (Approximate), Expires: 07/26/2023 [facility] Work Phone: Comment on above: Expected: 08/28/2022 (Approximate), Expi res: 07/26/2023 Start: 08-28-2022 End: 07-26-2023 Phosphate [Mass/volume] in Serum or Plasma PHOSPHORUS INORGANIC Lab Routine Megaloblastic anemia due to vitamin B12 deficiency Elevated sed rate High total serum IgM Chronic fatigue and malaise Expected: 08/28/2022 (Approximate), Expires: 07/26/2023 [facility] Work Phone: Comment on above: Expected: 08/28/2022 (Approximate), Expi res: 07/26/2023 Start: 08-28-2022 End: 07-26-2023 PROTEIN ELECTROPHORESIS SERUM W/INTERP PROTEIN ELECTROPHORESIS SERUM W/INTERP Lab Routine Megaloblastic anemia due to vitamin B12 deficiency Elevated sed rate High total serum IgM Chronic fatigue and malaise Expected: 08/28/2022 (Approximate), Expires: 07/26/2023 [facility] Work Phone: Comment on above: Expected: 08/28/2022 (Approximate), Expi res: 07/26/2023 Start: 08-28-2022 End: 07-26-2023 Urate [Mass/volume] in Serum or Plasma URIC ACID BLOOD Lab Routine Megaloblastic anemia due to vitamin B12 deficiency Elevated sed rate High total serum IgM Chronic fatigue and malaise Expected: 08/28/2022 (Approximate), Expires: 07/26/2023 [facility] Work Phone: Comment on above: Expected: 08/28/2022 (Approximate), Expi res: 07/26/2023 Start: 07-15-2022 End: 05-20-2023 [id number] [Mass/volume] in Serum or Plasma B2 MICROGLOBULIN B Lab Routine High total serum IgM Expected: 07/15/2022 (Approximate), Expires: 05/20/2023 [facility] Work Phone: Comment on above: Expected: 07/15/2022 (Approximate), Expi res: 05/20/2023 Start: 07-15-2022 End: 05-20-2023 Calcium.ionized [Moles/volume] in Blood CALCIUM IONIZED BLOOD Lab Routine High total serum IgM Expected: 07/15/2022 (Approximate), Expires: 05/20/2023 [facility] Work Phone: Comment on above: Expected: 07/15/2022 (Approximate), Expi res: 05/20/2023 Start: 07-15-2022 End: 05-20-2023 CBC W Auto Differential panel - Blood CBC + DIFF Lab Routine High total serum IgM Expected: 07/15/2022 (Approximate), Expires: 05/20/2023 [facility] Work Phone: Comment on above: Expected: 07/15/2022 (Approximate), Expi res: 05/20/2023 Start: 07-15-2022 End: 05-20-2023 Comprehensive metabolic 2000 panel - Serum or Plasma COMP METABOLIC PANEL Lab Routine High total serum IgM Expected: 07/15/2022 (Approximate), Expires: 05/20/2023 [facility] Work Phone: Comment on above: Expected: 07/15/2022 (Approximate), Expi res: 05/20/2023 Start: 07-15-2022 End: 09-14-2022 KAPPA/FARMER,FREE,SER KAPPA/FARMER,FREE,SER Lab Routine High total serum IgM Expected: 07/15/2022 (Approximate), Expires: 09/14/2022 [facility] Work Phone: Comment on above: Expected: 07/15/2022 (Approximate), Expi res: 09/14/2022 Start: 07-15-2022 End: 05-20-2023 Lactate dehydrogenase [Enzymatic activity/volume] in Serum or Plasma LD LACTATE DEHYDRO Lab Routine High total serum IgM Expected: 07/15/2022 (Approximate), Expires: 05/20/2023 [facility] Work Phone: Comment on above: Expected: 07/15/2022 (Approximate), Expi res: 05/20/2023 Start: 07-15-2022 End: 05-20-2023 MONOCLONAL PROTEIN, SERUM (BLOOD) MONOCLONAL PROTEIN, SERUM (BLOOD) Lab Routine High total serum IgM Expected: 07/15/2022 (Approximate), Expires: 05/20/2023 [facility] Work Phone: Comment on above: Expected: 07/15/2022 (Approximate), Expi res: 05/20/2023 Start: 07-15-2022 End: 05-20-2023 Phosphate [Mass/volume] in Serum or Plasma PHOSPHORUS INORGANIC Lab Routine High total serum IgM Expected: 07/15/2022 (Approximate), Expires: 05/20/2023 [facility] Work Phone: Comment on above: Expected: 07/15/2022 (Approximate), Expi res: 05/20/2023 Start: 07-15-2022 End: 05-20-2023 PROTEIN ELECTROPHORESIS SERUM W/INTERP PROTEIN ELECTROPHORESIS SERUM W/INTERP Lab Routine High total serum IgM Expected: 07/15/2022 (Approximate), Expires: 05/20/2023 [facility] Work Phone: Comment on above: Expected: 07/15/2022 (Approximate), Expi res: 05/20/2023 Start: 07-15-2022 End: 05-20-2023 Urate [Mass/volume] in Serum or Plasma URIC ACID BLOOD Lab Routine High total serum IgM Expected: 07/15/2022 (Approximate), Expires: 05/20/2023 [facility] Work Phone: Comment on above: Expected: 07/15/2022 (Approximate), Expi res: 05/20/2023 Start: 06-05-2022 End: 03-05-2023 25-hydroxyvitamin D3 [Mass/volume] in Serum or Plasma VITAMIN D 25 HYDROXY Lab Routine Vitamin D deficiency Expected: 06/05/2022 (Approximate), Expires: 03/05/2023 [facility] Work Phone: Comment on above: Expected: 06/05/2022 (Approximate), Expi res: 03/05/2023 Start: 06-05-2022 End: 03-05-2023 C reactive protein [Mass/volume] in Serum or Plasma C-REACTIVE PROTEIN (CRP) Lab Routine Elevated sed rate Elevated C-reactive protein (CRP) Expected: 06/05/2022 (Approximate), Expires: 03/05/2023 [facility] Work Phone: Comment on above: Expected: 06/05/2022 (Approximate), Expi res: 03/05/2023 Start: 06-05-2022 End: 03-05-2023 Cobalamin (Vitamin B12) [Mass/volume] in Serum or Plasma VITAMIN B12 BLOOD Lab Routine Vitamin B12 deficiency Expected: 06/05/2022 (Approximate), Expires: 03/05/2023 [facility] Work Phone: Comment on above: Expected: 06/05/2022 (Approximate), Expi res: 03/05/2023 Start: 06-05-2022 End: 03-05-2023 Erythrocyte sedimentation rate SED RATE WESTERGREN Lab Routine Elevated sed rate Elevated C-reactive protein (CRP) Expected: 06/05/2022 (Approximate), Expires: 03/05/2023 [facility] Work Phone: Comment on above: Expected: 06/05/2022 (Approximate), Expi res: 03/05/2023 Start: 05-06-2022 End: 03-18-2023 [id number] [Mass/volume] in Serum or Plasma B2 MICROGLOBULIN B Lab Routine Megaloblastic anemia due to vitamin B12 deficiency High total serum IgM Expected: 05/06/2022 (Approximate), Expires: 03/18/2023 [facility] Work Phone: Comment on above: Expected: 05/06/2022 (Approximate), Expi res: 03/18/2023 Start: 05-06-2022 End: 03-18-2023 Calcium.ionized [Moles/volume] in Blood CALCIUM IONIZED BLOOD Lab Routine Megaloblastic anemia due to vitamin B12 deficiency High total serum IgM Expected: 05/06/2022 (Approximate), Expires: 03/18/2023 [facility] Work Phone: Comment on above: Expected: 05/06/2022 (Approximate), Expi res: 03/18/2023 Start: 05-06-2022 End: 03-18-2023 CBC W Auto Differential panel - Blood CBC + DIFF Lab Routine Megaloblastic anemia due to vitamin B12 deficiency High total serum IgM Expected: 05/06/2022 (Approximate), Expires: 03/18/2023 [facility] Work Phone: Comment on above: Expected: 05/06/2022 (Approximate), Expi res: 03/18/2023 Start: 05-06-2022 End: 03-18-2023 Comprehensive metabolic 2000 panel - Serum or Plasma COMP METABOLIC PANEL Lab Routine Megaloblastic anemia due to vitamin B12 deficiency High total serum IgM Expected: 05/06/2022 (Approximate), Expires: 03/18/2023 [facility] Work Phone: Comment on above: Expected: 05/06/2022 (Approximate), Expi res: 03/18/2023 Start: 05-06-2022 End: 03-18-2023 Ferritin [Mass/volume] in Serum or Plasma FERRITIN BLD Lab Routine Megaloblastic anemia due to vitamin B12 deficiency High total serum IgM Expected: 05/06/2022 (Approximate), Expires: 03/18/2023 [facility] Work Phone: Comment on above: Expected: 05/06/2022 (Approximate), Expi res: 03/18/2023 Start: 05-06-2022 End: 03-18-2023 Iron and Iron binding capacity panel - Serum or Plasma IRON + TIBC Lab Routine Megaloblastic anemia due to vitamin B12 deficiency High total serum IgM Expected: 05/06/2022 (Approximate), Expires: 03/18/2023 [facility] Work Phone: Comment on above: Expected: 05/06/2022 (Approximate), Expi res: 03/18/2023 Start: 05-06-2022 End: 03-18-2023 Lactate dehydrogenase [Enzymatic activity/volume] in Serum or Plasma LD LACTATE DEHYDRO Lab Routine Megaloblastic anemia due to vitamin B12 deficiency High total serum IgM Expected: 05/06/2022 (Approximate), Expires: 03/18/2023 [facility] Work Phone: Comment on above: Expected: 05/06/2022 (Approximate), Expi res: 03/18/2023 Start: 05-06-2022 End: 03-18-2023 MONOCLONAL PROTEIN, SERUM (BLOOD) MONOCLONAL PROTEIN, SERUM (BLOOD) Lab Routine Megaloblastic anemia due to vitamin B12 deficiency High total serum IgM Expected: 05/06/2022 (Approximate), Expires: 03/18/2023 [facility] Work Phone: Comment on above: Expected: 05/06/2022 (Approximate), Expi res: 03/18/2023 Start: 05-06-2022 End: 03-18-2023 Phosphate [Mass/volume] in Serum or Plasma PHOSPHORUS INORGANIC Lab Routine Megaloblastic anemia due to vitamin B12 deficiency High total serum IgM Expected: 05/06/2022 (Approximate), Expires: 03/18/2023 [facility] Work Phone: Comment on above: Expected: 05/06/2022 (Approximate), Expi res: 03/18/2023 Start: 05-06-2022 End: 03-18-2023 PROTEIN ELECTROPHORESIS SERUM W/INTERP PROTEIN ELECTROPHORESIS SERUM W/INTERP Lab Routine Megaloblastic anemia due to vitamin B12 deficiency High total serum IgM Expected: 05/06/2022 (Approximate), Expires: 03/18/2023 [facility] Work Phone: Comment on above: Expected: 05/06/2022 (Approximate), Expi res: 03/18/2023 Start: 05-06-2022 End: 03-18-2023 Urate [Mass/volume] in Serum or Plasma URIC ACID BLOOD Lab Routine Megaloblastic anemia due to vitamin B12 deficiency High total serum IgM Expected: 05/06/2022 (Approximate), Expires: 03/18/2023 [facility] Work Phone: Comment on above: Expected: 05/06/2022 (Approximate), Expi res: 03/18/2023 Start: 04-05-2022 COVID-19 VACCINE (5 - Pfizer risk series) COVID-19 VACCINE (5 - Pfizer risk series) [facility] Start: 03-09-2022 End: 05-09-2022 Hemoglobin A1c in Blood HGB A1C Lab Routine Elevated glucose Expected: 03/09/2022, Expires: 05/09/2022 [facility] Work Phone: Comment on above: Expected: 03/09/2022, Expires: Start: 02-24-2022 End: 04-26-2022 BARTONELLA AB PANEL BARTONELLA AB PANEL Lab Routine Swelling of lymph nodes Expected: 02/24/2022, Expires: 04/26/2022 [facility] Work Phone: Comment on above: Expected: 02/24/2022, Expires: 2 Start: 02-24-2022 End: 04-26-2022 BRUCELLA AB TOTAL BRUCELLA AB TOTAL Lab Routine Swelling of lymph nodes Expected: 02/24/2022, Expires: 04/26/2022 [facility] Work Phone: Comment on above: Expected: 02/24/2022, Expires: 2 Start: 02-24-2022 End: 04-26-2022 Cryptococcus sp Ag [Presence] in Unspecified specimen by Latex agglutination CRYPTOCOCCUS AG DET Microbiology Routine Swelling of lymph nodes Expected: 02/24/2022, Expires: 04/26/2022 [facility] Work Phone: Comment on above: Expected: 02/24/2022, Expires: 2 Start: 02-24-2022 End: 04-26-2022 HISTOPLASMA AG URINE HISTOPLASMA AG URINE Lab Routine Swelling of lymph nodes Expected: 02/24/2022, Expires: 04/26/2022 [facility] Work Phone: Comment on above: Expected: 02/24/2022, Expires: 2 Start: 02-24-2022 End: 04-26-2022 HIV 1 RNA [#/volume] (viral load) in Serum or Plasma by YESSI with probe detection HIV RNA VIRAL LOAD Lab Routine Swelling of lymph nodes Expected: 02/24/2022, Expires: 04/26/2022 [facility] Work Phone: Comment on above: Expected: 02/24/2022, Expires: 2 Start: 02-24-2022 End: 04-26-2022 SYPHILIS TOTAL W/REFLEX SYPHILIS TOTAL W/REFLEX Lab Routine Swelling of lymph nodes Expected: 02/24/2022, Expires: 04/26/2022 [facility] Work Phone: Comment on above: Expected: 02/24/2022, Expires: 2 Start: 01-22-2022 Influenza vaccination [facility] Start: 08-24-2021 COVID-19 VACCINE (4 - Booster for Pfizer series) COVID-19 VACCINE (4 - Booster for Pfizer series) [facility] Start: 01-22-2021 Influenza vaccination Flu vaccine (Season Ended) [employer] Phone: Start: 2020 Lipid panel Lipid screen [employer] Phone: Start: 2020 Mammography [facility] Start: 2020 Screening for malignant neoplasm of breast [facility] Start: 2010 HPV TESTING HPV TESTING [facility] Start: 2010 Screening for malignant neoplasm of cervix [facility] Start: 2002 DTaP/Tdap/Td Vaccines (1 - Tdap) DTaP/Tdap/Td Vaccines (1 - Tdap) [facility] Start: 2001 PAP TESTING PAP TESTING [facility] Start: 2001 Screening for malignant neoplasm of cervix [facility] Start: 10-05-1999 DTaP/Tdap/Td vaccine (1 - Tdap) DTaP/Tdap/Td vaccine (1 - Tdap) [employer] Phone: Start: 10-05-1999 Hepatitis B Vaccine (1 of 3 - 19+ 3-dose series) Hepatitis B Vaccine (1 of 3 - 19+ 3-dose series) [facility] Start: 10-05-1999 SHINGRIX VACCINE (1 of 2) SHINGRIX VACCINE (1 of 2) [facility] Start: 10-05-1999 Urine microalbumin profile [facility] Start: 10-05-1999 Zoster Vaccines (1 of 2) Zoster Vaccines (1 of 2) [facility] Start: 1998 Hepatitis C screening Hepatitis C Screening [facility] Start: 1998 HIV SCREENING HIV SCREENING [facility] Start: 1998 HIV screening HIV Screening [facility] Start: 10-05-1995 HIV screening HIV screen [employer] Phone: Start: 1992 COVID-19 Vaccine (1) COVID-19 Vaccine (1) [employer] Phone: Start: 10-05-1991 Screening for malignant neoplasm of cervix Cervical Cancer Screening [facility] Start: 1986 PNEUMOCOCCAL (1 - PCV) PNEUMOCOCCAL (1 - PCV) [facility] Start: 1986 Pneumococcal vaccination [facility] Start: 1986 Pneumococcal Vaccine: Pediatrics (0 to 5 Years) and At-Risk Patients (6 to 64 Years) (1 - PCV) Pneumococcal Vaccine: Pediatrics (0 to 5 Years) and At-Risk Patients (6 to 64 Years) (1 - PCV) [facility] Start: 1981 MMR Vaccines (1 of 1 - Standard series) MMR Vaccines (1 of 1 - Standard series) [facility] Start: 1981 Varicella vaccination Varicella Vaccines (1 of 2 - 2-dose childhood series) [facility] Start: 1981 Varicella vaccine (1 of 2 - 2-dose childhood series) Varicella vaccine (1 of 2 - 2-dose childhood series) [employer] Phone: Start: 1980 HEPATITIS B (1 of 3 - 3-dose series) HEPATITIS B (1 of 3 - 3-dose series) [facility] Start: 1980 Hepatitis B Vaccine (1 of 3 - 3-dose series) Hepatitis B Vaccine (1 of 3 - 3-dose series) [facility] Start: 1980 Hepatitis B Vaccines (1 of 3 - 3-dose series) Hepatitis B Vaccines (1 of 3 - 3-dose series) [facility] Start: 1980 Hepatitis C screening Hepatitis C screen [employer] Phone: Start: 1980 HIV screening HIV Screening [facility] Start: 1980 [address]id Panel [facility] Start: 1980 Screening for osteoporosis Bone Density Scan [facility] Start: 1980 Yearly Adult Physical Yearly Adult Physical [facility] Cardiovascular funct ion eval w/tilt table w/mntr TILT TABLE EVALUATION Cardiology Routine POTS (postural orthostatic tachycardia syndrome) Ordered: 03/09/2022 [facility] Work Phone: Comment on above: Ordered: 03/09/2022 End: 03-05-2024 DXA-AXIAL SKELETON DXA-AXIAL SKELETON Radiology Routine Steroid-induced osteoporosis 1 Occurrences starting 02/04/2023 until 03/05/2024 [facility] Work Phone: Comment on above: 1 Occurrences starting 02/04/2023 until 03/05/2024 End: 03-05-2024 DXA-FOREARM SKELETON DXA-FOREARM SKELETON Radiology Routine Steroid-induced osteoporosis 1 Occurrences starting 02/04/2023 until 03/05/2024 [facility] Work Phone: Comment on above: 1 Occurrences starting 02/04/2023 until 03/05/2024 ECG 12 Lead ECG 12 Lead ECG Routine Irregular heart rate 06/09/2023 8:[address] [facility] Work Phone: End: 03-09-2023 HOME SLEEP APNEA TEST (HSAT) HOME SLEEP APNEA TEST (HSAT) Procedures Routine Somnolence, daytime Snoring 1 Occurrences starting 03/09/2022 until 03/09/2023 [facility] Work Phone: Comment on above: 1 Occurrences starting 03/09/2022 until 03/09/2023 Oxygen therapy [[facility] Data Set] Initiate Oxygen Therapy Protocol Respiratory Care Routine Daily until discontinued starting 10/07/2020 [facility] Work Phone: Comment on above: Daily until discontinued starting 2020 End: 03-04-2023 Polysomnogram POLYSOMNOGRAM (PSG) Procedures Routine Somnolence, daytime Snoring 1 Occurrences starting 03/04/2022 until 03/04/2023 [facility] Work Phone: Comment on above: 1 Occurrences starting 03/04/2022 until 03/04/2023 [facility] Immunizations Immunization Date Immunization Notes Care Provider Fa cility 02-23-2023 COVID-19 vaccine, ag e 12+ yr, 2022- season (PFIZER-BIONTECH) Lynne Ni MD Work Phone: [facility] Payers Date Payer Category Payer Self-pay 2017 Unknown [employer] [id number] 2017-Present [address] [place] [address] [id number] 2009 Medicaid [employer] [id number] 2009-Present [phone] [address] [place] [address] Medicaid [id number] 2009 Medicaid [id number]. [id number] 1980 Unknown [id number] 2.16.840.1.436102.3.579.2.185 1980 Unknown [id number] 2.16.840.1.207551.3.579.2.175 1980 Unknown [id number] 2.16.840.1.841583.3.579.2.593 1980 Unknown [id number] 2.16.840.1.539858.3.579.2.593 1980 Unknown [id number] 2.16.840.1.503160.3.579.2.593 1980 Unknown [id number] 2.16.840.1.212351.3.579.2.593 1980 Unknown [id number] 2.16.840.1.415117.3.579.2.59 1980 Unknown [id number] 2.16.840.1.592285.3.579.2.59 1980 Unknown [id number] 2.16.840.1.815026.3.579.2.59 1980 Unknown [id number] 2.16.840.1.827452.3.579.2.59 1980 Unknown [id number] 2.16.840.1.516874.3.579.2. 1980 Unknown [id number] 2.16.840.1.331927.3.579.2. 1980 Unknown [id number] 2.16.840.1.713570.3.579.2.1243 1980 Unknown [id number] 2.16.840.1.138322.3.579.2.1243 1980 Unknown [id number] 2.16.840.1.032453.3.579.2.1258 1980 Unknown [id number] 2.16.840.1.642032.3.579.2.1258 1980 Unknown [id number] 2.16.840.1.044813.3.579.2.1258 1980 Unknown [id number] 2.16.840.1.791486.3.579.2.1258 1980 Unknown [id number] 2.16.840.1.748670.3.579.2.1258 1980 Unknown [id number] 2.16.840.1.715164.3.579.2.1258 1980 Unknown [id number] 2.16.840.1.053548.3.579.2.1258 1980 Unknown [id number] 2.16.840.1.964076.3.579.2.1259 1980 Unknown [id number] 2.16.840.1.244894.3.579.2.1259 1980 Unknown [id number] 2.16.840.1.439600.3.579.2.1259 1980 Unknown [id number] 2.16.840.1.911820.3.579.2.1259 1980 Unknown [id number] 2.16.840.1.977517.3.579.2.1259 1959 Unknown [id number] 1959 Unknown [id number] Unknown [id number] 2.16.840.1.232314.3.579.2.531 Social History Date Type Detail Facility Start: 10-07-2020 End: 03-09-2022 Tobacco smoking status MIIS Current every day smoker [facility] Start: 10-07-2020 End: 03-09-2022 Tobacco use and exposure Never used [employer] Start: 10-07-2020 End: 07-13-2023 Alcohol intake Lifetime non-drinker (finding) [employer] Phone: Start: 10-07-2020 History SDOH Alcohol Frequency 1 [employer] Phone: Start: 1980 Sex Assigned At Not on file M [employer] Phone: Start: 02-22-2022 End: 07-13-2023 Exposure to SARS-CoV-2 (event) Not sure [employer] History of tobacco use Cigarette Smoker [facility] Start: 05-31-2014 End: 09-24-2022 Cigarettes smoked current (pack per day) - Reported 1 [facility] Start: 10-24-2021 End: 10-05-2023 Alcohol intake Current non-drinker of alcohol (finding) [facility] Start: 10-14-2021 End: 10-24-2021 Exposure to SARS-CoV-2 (event) Unable to assess [facility] Start: 09-24-2022 End: 10-22-2022 Sex Assigned At [facility] Adult Depression Screening Assessment 1 [facility] Start: 10-19-2022 Tobacco Comment Current smoker , everyday, 11-20 cigarettes/day [facility] Start: 05-31-2023 Alcohol Comment Caffeine intak e : > 4 cups per day [facility] Start: 08-19-2016 Tobacco smoking stat us [facility] Smoker (finding) [facility] Start: 1980 Sex Assigned At Female F [facility] Clinical Notes 05-31-2014 to 11-29-2023 Stacy Gutiérrez MA - 11/29/2023 1:47 PM EDTHStacy ruiz MA - 11/29/2023 1:47 PM EDTTelephone Encounter - Katherin Schneider RN - 11/26/2023 11:34 AM Margret Francis MA - 10/27/2023 2:43 PM EDT Note Date & Type Note Facility 11-29-2023 Nurse Note Patient Identification confirmed: yes. Injection given and documented on JUL per provider order. Stacy Gutiérrez MA [facility] 11-29-2023 Nurse Note Patient Identification confirmed: yes. Injection given and documented on MAR per provider order. Stacy Gutiérrez MA documented in this encounter [facility] 11-26-2023 Telephone encounter Note Please sign pended script Maryam Schneider RN [facility] 11-26-2023 Miscellaneous Notes Please sign pended script Maryam Schneider RN documented in this encounter [facility] 11-15-2023 History of Presen t illness Narrative [facility] Refill Assessment Medication(s): Benlysta Patient's current medication list and adherence status to current therapy were reviewed by Specialty Pharmacy clinical pharmacist to identify any new drug interactions or non-compliance to therapy. Therapy continues to be appropriate for disease, patient response, and medical condition. Verification of therapeutic benefit and effectiveness with current therapy was completed. Adverse events, barriers in adherence, and side effects were assessed and addressed if applicable. Will proceed with refill with no changes in therapy - patient progressing towards achieving therapeutic goals based on medication-specific laboratory parameters, disease state markers and outcomes. Co Founder And Director Assessment Patient confirmed: Yes Med/dose confirmed: Yes Missed doses: No Estimated days supply on hand: 1 Next cycle/dose due: 11/18/23 Copay amount: 0 Payment confirmed: Yes Delivery method: FedEx Signature required: Waived on patient request Delivery address: [address] [place] [address]. [place], [place] Delivery date: 11/17/23 Questions or concerns for the pharmacist?: No Did you have any side effects believed to be related to this medication, that resulted in hospitalization?: No Current Outpatient Medications on File Prior to Visit Medication Sig azaTHIOprine (IMURAN) 50 mg tablet TAKE 3 TABLETS BY MOUTH DAILY WITH FOOD. HOLD IF ON ANTIBIOTICS OR ILL. hydrOXYchloroQUINE (PLAQUENIL) 200 mg tablet TAKE 1 TAB TWICE A DAY WITH FOOD *SUNSCREEN WHILE OUTDOORS/OPHTHAMOLOGY EVERY 6-12 MONTHS WHILE ON* belimumab (BENLYSTA) 200 mg/mL auto-injector Inject 200mg (1 pen) subcutaneously once weekly predniSONE (DELTASONE) 10 mg tablet Take 10mg daily with food (no oral nsaids) ergocalciferol 50,000 unit capsule (VITAMIN D2, DRISDOL) Take 1cap by mouth once a week with food. topiramate (TOPAMAX) 25 mg tablet Take 1 tablet by mouth two times a day. pregabalin (LYRICA) 75 mg capsule take 1 capsule by mouth three times a day folic acid 1 mg tablet TAKE 1 TABLET BY MOUTH EVERY DAY metoprolol tartrate, short acting, (LOPRESSOR) 50 mg tablet Take 50 mg by mouth twice daily. CPAP/BIPAP/OTHER Type .CPAPSettings into a note to see current settings/supplies/DME information. acetaminophen (TYLENOL) 500 mg tablet Take 1,000 mg by mouth. aspirin 81 mg chewable tablet Take 81 mg by mouth. ibuprofen (MOTRIN) 200 mg tablet Take 600 mg by mouth. No current facility-administered medications on file prior to visit. [facility] Specialty Pharmacy Visit Assessment - Inflammatory Conditions: Assessment to use: Refill Vaccination Assessment: Date of influenza vaccination reminder: 03/04/2023 Date of most recent vaccination assessment: 03/04/2023 Treatment Plan Information: Treatment Plan Information: M32.19 - Systemic lupus erythematosus with other organ involvement Benlysta - Inject 200mg (1 pen) subcutaneously once weekly Estimated Treatment Duration: Until loss of efficacy and/or no longer tolerated. Refill Assessment: Concurrent med therapy and DMARD screening: Yes Assessment of injection issues: Yes Screening for infection: Yes Adverse reactions and mitigation: Yes COPD monitoring (Orencia): N/A Assessment of efficacy: Yes Aidee Quintanilla PharmD Clinical Pharmacist, [employer] [facility] Specialty Pharmacy ; Pool: P [facility] Pool #: [id number] documented in this encounter [facility] 11-15-2023 Note [facility] 11-11-2023 Telephone encounter Note Notify patient medication sent as requested Thank you. Patient's request for medication is as follows: Requested Prescriptions Pending Prescriptions Disp Refills azaTHIOprine (IMURAN) 50 mg tablet 270 tablet 1 Sig: TAKE 3 TABLETS BY MOUTH DAILY WITH FOOD. HOLD IF ON ANTIBIOTICS OR ILL. Prescription(s) as above. Please process accordingly. Lynne Ni MD [facility] 11-11-2023 Miscellaneous Notes Notify patient [...] deficiency, Elevated sed rate FOLATE SERUM [SQSERFOL] Every 3 months 06/02/24 06/03/23 08/31/23 Auth. [...] total serum IgM documented in this encounter [facility] 11-11-2023 Telephone encounter Note Images from the [...] vitamin B12 deficiency, High total serum IgM [facility] 10-28-2023 Telephone encounter Note Pt read [employer] message. [facility] 10-28-2023 Miscellaneous Notes Pt read [employer]INTER[employer] message. Please call patient. Thank you for [...] current symptoms. Hope you feel better soon! Warm regardsDr.Tsai :) documented in this encounter [facility] 10-28-2023 Telephone encounter Note Please [...] current symptoms. Hope you feel better soon! Warm Dr.Tsai oziel :) [facility] 10-27-2023 Nurse Note Patient Identification confirmed: yes. Injection given and documented on MAR per provider order. Margret Cuenca MA [facility] 10-27-2023 Nurse Note Patient Identification confirmed: yes. Injection given and documented on MAR per provider order. Margret Cuenca MA documented in this encounter [facility] 10-12-2023 Note [facility] 10-05-2023 History of Presen t illness Narrative [...] visit. Either the patient or their legal new accounts representative has been informed of the risks [...] had 3good days/thinking benlysta working. Reports pain 09/30. Has minimal AM stiffness. 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 Labs sent to [facility]/completed in 06/2021 (no results faxed to office, [...] COVID-19 original vaccine, age 12+ yr, monovalent ([employer] - PURPLE TOP) 09/28/2020 10/19/2020 05/26/2021 COVID-19 vaccine, age 12+ yr, 2022- season ([employer]) 02/23/2023 COVID-19 vaccine, age 12+ yr, bivalent ([employer]) 02/08/2022 Pneumovax no Flu shot no Tetanus [...] (33);NL cbc, cmp, negative hla b27; Outside [place] 06/2021 low vitamin D 16, vitamin b12-307;high [...] measures, may consider osteoporosis treatment if on senior care steroids/abnormal bmd, take vitamin D script once [...] metoprolol for POTs, avoid aggravating triggers, 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 teacher pain recommendations per primary care provider/pain clinic/patient [...] (200mg) daily with a meal Please see farebox repairer every 6-12months while on Hydroxychloroquine. Start 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 [...] your toes, sit-ups, using row machine 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 teacher pain recommendations per primary care provider/pain clinic [...] video & audio (virtual) or phone or [id number] patient care, completing clinical documentation, obtaining and/or [...] Yes Memory Loss: No Swollen Glands: Yes [facility] AMBULATORY VISIT INTAKE QUESTIONNAIRE Question 2023 11:04 [...] Workers' Compensation? No Do you need an brick layer? No [facility] MYCHART ZOOM MESSAGE Question 2023 11:04 PM [...] (range: 0 - 100) 5 2 4 MYC SLAQ QUESTIONNAIRE Question 2023 11:10 PM EDT [...] SLAQ Score (range: 0 - 47) 15 MYC PROVIDER UNDERSTANDING CURRENT HEALTH RHEUMATOLOGY Question 2023 11:10 PM EDT - Filed by Patient These questions will help my provider understand my health Strongly Agree [facility] DOCUMENT/IMAGE UPLOAD Question 2023 11:10 PM EDT [...] (WITHIN +/- 5) documented in this encounter [facility] 10-05-2023 Note [facility] 09-30-2023 Nurse Note Patient Identification confirmed: yes. Injection given and documented on JUL per provider order. Renea Schneider MA [facility] 09-22-2023 Evaluation note Authored September [...] switch omeprazole to pantoprazole and monitor symptoms [facility] Work Phone: 1(913) 373-952504-22-2024 NoteAdena Health System04-18-2024 Instructions* Patient Instructions* Jose Najera MD - 09/09/2023 4:47 PM EDT Follow up in 13 Weeks - labs 1 week before. B12 shot every 4 weeks. Continue Folic acid. documented in this encounterUniversity Hospitals [facility]aug[facility]04-18-2024 History of Present illness Narrative* Jose Najera MD - 09/09/2023 4:30 PM EDT NAME: Jones Haley CLINIC NO.: [id number] DATE OF SERVICE: September 09, 2023 (Moriahcarlos) Some elements in this clinic note that are critical to medical decision making have been carefully reviewed and included from a prior clinic note dated: June 10, 2023 (Marquis) Referring Provider: Dr. Madelaine Ferris Additional Clinicians involved in Jones Haley's care: VIRTUAL VISIT PROGRESS NOTE This is a virtual visit using [employer] Video Call. It required patient- provider interaction for the medical decision making as documented below. I have communicated my name and active licensure. The patient's identity and physical location wereverified at the time of this visit. Either the patient or their legal new accounts representative has been informed of the risks [...] injections. Shefollows with multiple doctors including and tobacco wetter, alteration specialist, leather coverer and PCP. She has been told they [...] CPE Hematology and Oncology Services Provided at: [place], [place] CC: Madelaine Ferris MD [facility] [address] documented in this encounterUniversity Hospitals Geauga Medical Center04-18-2024 NoteAdena Health System04-15-2024 Miscellaneous Notes* Telephone Encounter - Maynor Bryson MA - 09/06/2023 7:21 AM EDT patient has viewed the COINTERRA message per [employer]. * Telephone Encounter - Lynne Ni MD - 09/04/2023 6:30 PM EDT Please Call patient if MyChart [...] accordingly. Lynne Ni MD documented in this [facility]04-09-2024 Nurse Note* Margret Cuenca MA - 08/31/2023 10:35 AM EDT Patient Identification confirmed: yes. Injection given and documented on JUL per provider order. Margret Cuenca MA documented in this [facility]04-01-2024 Nurse Note* Renea Schneider MA - 09/30/2023 10:53 AM EDT Patient Identification confirmed: yes. Injection given and documented on JUL per provider order. eRnea Schneider MA documented in this [facility]03-21-2024 [facility]03-14-2024 Nurse Note* Margret Cuenca - 08/05/2023 11:16 AM EDT Patient Identification confirmed: yes. Injection given and documented on JUL per provider order. Margret Cuenca documented in this [facility]02-20-2024 [facility]02-20-2024 Nurse Note* Margret Cuenca - 07/13/2023 12:01 PM EST Patient Identification confirmed: yes. Injection given and documented on JUL per provider order. Margret Cuenca documented in this [facility]02-20-2024 History of Present illness Narrative* Lois Holm [...] and is being cared for at the [facility] utilizing steroids, Plaquenil and injectable medic ation(Benlystal). The patient record indicating having had cardiac catheterization in [place] 3 years ago which was normal. I have the report available for my review. [facility] [...] lupus being treated by rheumatology at the [facility] on steroids, Plaquenil and monoclonal antibody 5-sleep [...] , Rfl: ergocalciferol (Vitamin D-2) 1.25 MG (07292 UT) capsule, Take 1 capsule (50,000 Units) [...] my direction and personally dictated by me. Jae reviewed the chart and agree that the record accurately reflects my personal performance of the history, physical exam, discussion and plan. documented in [facility]St[facility] Work Phone: 1(390) 195-670702-20-2024 Instructions* Patient Instructions* Lila Tejeda LPN - [...] time of your visit. documented in this encounterSt. [facility] Work Phone: 1(973) 512-815702-13-2024 History of Present illness Narrative* Juan Luis [...] , Rfl: ergocalciferol (Vitamin D2) 1.25 MG (50311 UT) capsule, Take 50,000 Units by mouth [...] Chronic laryngopharyngitis COVID-19 vaccine administered x 2 ([employer]) History of removal of cyst 2013 tailbone [...] reflexes: Stu's absent. Ankle clonus absent. Coordination Hcyhkq-ct-kwem, rapid alternating movements and vjlj-wn-afqs normal bilaterally without dysmetria. Gait Normal casual, toe, heel and tandem gait. Romberg is absent. Assessment/Plan Diagnoses and all orders for this visit: Autoimmune disease (CMS/[facility]) - Protein electrophoresis, serum; Future [...] Lyrica 100 mg TID. She is on vigxfphzjh29 mg once daily. Increase prednisone 10 mg BID for 10 days. documented in this encounterCrittenton Behavioral HealthQdmnxmwgbi20-19-9916 [facility]01-18-2024 [facility]01-17-2024 History of Present illness Narrative* Michelle Britton, SOLE MOLDER-CAR REPOSSESSOR - 06/09/2023 8:30 AM EST Jones Haley is a 42 y.o. female that presents to the office today for new patient evaluation asself referral for palpitations and elevated heart rates. She has a PMH of HTN, HLD, tachycardia, anemia, JOSE RAFAEL with CPAP compliance, lupus, autonomic dysfunction, arthritis, chronic back pain. She has undergone cardiac workup in the past in [place] as noted below. She also states that she follows withNeurology for possible POTS syndrome. Admits to daily tobacco use, 1 pack of cigarettes per day. Denies vaping, ETOH, recreational drugs. Admits to drinking approximately 1 pot of coffee per day. Denies daily exercise. 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 Family history negative [...] , Rfl: ergocalciferol (Vitamin D-2) 1.25 MG (85277 UT) capsule, Take 1 capsule (50,000 Units) [...] Anemia, unspecified Anxiety Autonomic dysfunction Depression, recurrent ([facility]/HCC) Discoid lupus erythematosus Chronic bilateral low back pain with bilateral sciatica Hyperlipidemia Obesity, Class III, BMI 40-49.9 (morbid obesity) ([facility]) Obstructive sleep apnea syndrome Arthritis [...] to prepare this document. documented in this [facility] Work Phone: 1(344) 796-844001-09-2024 [facility]01-03-2024 Instructions* Patient Instructions* Christie Phan MD - 05/26/2023 5:43 PM EST Images from the original note were not included. https://Symform/tofu-bolognese/ https://nutritionstudies.org/ohq-nf-qhaqstgsv-arxhiubc-ud-jrknp-f-essdg-ulge-randee bd-qphwx-ynvkhmoxz/ https://www.[employer]blog/plantbasedkids https://Wedding Party/cgcdn-jhsyj-nkrg-for-kids/ https://[employer]/rmo-wd-uqawnlapwb-oggq-ymkg-yk-n-gawko-ehyxq-diet/ WHAT TO EAT? Breakfast: Overnight Oats Base ingredients: 1/3 cup rolled oats, 1/3 cup plain almond milk, 1tsp kyle seeds. Optional add-ins: cinnamon, flax seeds, honey or maple syrup, nut butter, chopped nuts. Toppings: Any fresh fruit chopped. Mix together and place in refrigerator. Can make 5 at a time for the whole week. Homemade fresh oatmeal. Can also make in the crockpot. Cameroonian muffin/almond butter topped with fresh berries Cameroonian muffin, cooked egg/egg white, tomato, thin slice togolese cheese Fresh berries, hard boiled egg, whole wheat toast Plain yogurt topped with berries, unsalted nuts, drizzle of honey Whole grain toast/Cameroonian muffin topped with mashed avocado and tomatoes Lunch: Dinner leftovers packed in Tupperware, side of fruit Salad mixture topped with a protein (chick breast/tuna/hard boiled egg/beans), dressing and side offruit Dinner - Refer to plate category planner pictures to help select foods and portion ratios of protein, vegetables/starches. Keep it simple and rotate your favorite meals. Sheet nix meals Soups Grilled protein/vegetables/side of starch (plate category planner picture) Stir can with protein, mixed vegetables, and riced cauliflower or portion controlled whole grain rice. Make your own bowls - Luxembourgish/Kosovan/ theme [place] with Zoodles (spiralized vegetable noodles). Roasted vegetable wraps Alter traditional recipes to reflect HIGH QUALITY ingredients in the right QUANTITIES. Snacks - portion controlled: Raw veggies (can have with hummus, mashed avocado, salsa). Unsalted nuts Fruit (1 serving). (optional side of peanut butter) Air pop popcorn [place] and low fat togolese cheese rolled up String cheese Protein balls (mix rolled oats, nut butter, flax seeds, dash almond milk). Beverages: Water Coffee, Hot tea Unsweetened ice tea EATING OUT: Research menu online, include nutritional information. Make your order decision before getting to restaurant. Stick to recommended portions (plate category planner picture). Ask for substitutions or modifications. [...] baked potato, sprouted grain bread, chick peas https://www.eatingSAVORTEX.com/article/1256355/thvsqoxziieet-uiqh-ryth-for-beginners / https://www.eatingSAVORTEX.com/category/4274/fzqsfzvthdmsd-wzhz-cxgxhl/ https://www.eatingSAVORTEX.com/category/4300/sijtzzckbnoer-lrre-blbi-plans/ My current favorite cookbooks are documented in this encounterCleveland [id number] History of Present illness Narrative* Christie Phan MD - 05/26/2023 5:00 PM EST Images from the original note were not included. [facility] Follow-Up Appointment [...] refer to nutrition to work towards a [facility] diet Plan Diagnoses and all orders [...] the date of the service which included uwgj-sn-vgoz patient care, completing clinical documentation, performing a medically appropriate examination, counseling and educating the patient/family/caregiver, and ordering medications, tests, or procedures. Christie Phan MD, MA, [facility] Lifestyle Medicine Specialist documented in this encounterUniversity Hospitals Geauga Medical Center01-03-2024 NoteAdena Health System12-27-2023 [facility]12-04-2023 Miscellaneous Notes * Telephone Encounter - Renate Lawrence MA - 04/26/2023 5:26 PM EST Medication pending with new pharmacy information. documented in this encounterUniversity Hospitals Geauga Medical Center12-04-2023 [facility]12-04-2023 History of Present illness Narrative* Christie Phan MD - 04/26/2023 4:15 PM EST Images from the original note were not included. [facility] Virtual Follow-Up [...] the date of the service which included eqoh-ec-unrm patient care, completing clinical documentation, performing a medically appropriate examination, counseling and educating the patient/family/caregiver, and ordering medications, tests, or procedures. I have communicated my name and active licensure. The patient's identity and physical location wereverified at the time of this visit. Either the patient or their legal new accounts representative has been informed of the risks and benefits of -- and alternatives to -- treatment through a remote evaluation andconsents to proceed with the evaluation remotely. Christie Phan MD, MA, [facility] Lifestyle Medicine Specialist documented in this encounterUniversity Hospitals Geauga Medical Center12-04-2023 Nurse Note* Renate Lawrence MA - 04/26/2023 2:46 PM EST Spoke to Jones Haley, confirmed patient is registered on [employer] and is prepared for their appointment. Confirmed the patient has updated medications, allergies, and questionnaires via [employer]. Informed patient if there is an issue with the connection, provider will send the patient a secure link. If provider is running late, patient should remain connected to the visit. Patient verbalized understanding. documented in this encounterUniversity Hospitals Geauga Medical Center12-04-2023 NoteAdena Health System11-30-2023 Miscellaneous Notes* Telephone Encounter - Enma Hamm RN - 04/22/2023 3:48 PM EST Pt called for Iron results; possible need for transfusion. Pt aware no need for iron infusion at this time. Enma Hamm RN documented in this encounterUniversity Hospitals Geauga Medical Center11-24-2023 NoteAdena Health System11-24-2023 NoteHNO ID: [id number] Author: Kenzie Shannon Service: ? Author Type: ? Type: Progress Notes Filed: 04/16/2023 11:10 AM Note Text: Patient Identification confirmed: yes. Injection given and documented on MAR per provider order. Kenzie ShannonAdena Health System11-24-2023 History of Present illness Narrative* Kenzie Shannon - 04/16/2023 10:55 AM EST Patient Identification confirmed: yes. Injection given and documented on MAR per provider order. Kenzie Shannon documented in this encounterUniversity Hospitals Geauga Medical Center11-09-2023 [facility]10-27-2023 NoteHNO ID: [id number] Author: Kenzie Shannon Service: ? Author Type: ? Type: Progress Notes Filed: 03/19/2023 11:22 AM Note Text: Patient Identification confirmed: yes. Injection given and documented on MAR per provider order. Kenzie ShannonAdena Health System10-27-2023 History of Present illness Narrative* Kenzie Shannon - 03/19/2023 11:06 AM EDT Patient Identification confirmed: yes. Injection given and documented on MAR per provider order. Kenzie Shannon documented in this encounterUniversity Hospitals Geauga Medical Center10-24-2023 NoteAdena Health System10-24-2023 History of Present illness Narrative* Marija Ziegler - 03/16/2023 10:13 AM EDT CMN RECEIVED BY [employer] VIA FAX, COMPLETED, AND PLACED IN PROVIDER MAILBOX FOR SIGNATURE On 2022 By Marija Ziegler Medical Intern II. Mamaherb SENDING CMN: JOSH SIGNED AND DATED CMN, FAXED TO DME & CONFIRMATION PAGE RECEIVED: 03.24.23 documented in this encounterUniversity Hospitals Geauga Medical Center10-19-2023 NoteAdena Health System10-19-2023 History of Present illness Narrative* Beatriz Sanchez [...] LPN In Department: RHEUMATOLOGY documented in this encounterUniversity Hospitals Geauga Medical Center10-18-2023 Miscellaneous Notes* Telephone Encounter - Christie Phan MD - 03/10/2023 2:18 PM EDT Spoke with patient. We stopped her trulicity because of side effects. She only took the cymbalta for a week. She will restart and we will see how she is doing in 2 months. Have also ordered insulin labs to check for insulin resistance. documented in this encounterUniversity Hospitals Geauga Medical Center10-09-2023 Miscellaneous Notes* Telephone Encounter - Lynne Ni MD - 03/01/2023 3:27 PM EDT For chart: Eye exam 02/26/23 no ocular complication related to medication. * Telephone Encounter - Beatriz Sanchez LPN - 03/01/2023 2:38 PM EDT Received eye exam from [facility] Placed on your desk for review. documented in this encounterUniversity Hospitals Geauga Medical Center09-29-2023 Nurse Note* Radha Kebede MA - 02/19/2023 11:48 AM EDT Patient Identification confirmed: yes. Injection given and documented on JUL per provider order. Radha Schofield MA documented in this encounterUniversity Hospitals Geauga Medical Center09-29-2023 Instructions* Patient Instructions* Jose Najera MD - 02/19/2023 11:40 AM EDT B12 shot today and every 4 weeks. Continue Folic acid. Follow up in 8 Weeks - labs 1 week before. documented in this encounterUniversity Hospitals Geauga Medical Center09-29-2023 [facility]09-29-2023 History of Present illness Narrative* Jose Najera MD - 02/19/2023 11:32 AM EDT Images from the original note were not included. AMBULATORY TELEPHONE VISIT Jones Haley has consented to this telephone encounter. Persons Present: Patient and myself Chief Complaint/Reason: Anemia; To review recent blood work. HPI: Total Time Spent: 21 minutes Wilmer Driver APRN.CAR REPOSSESSOR NAME: Jones Haley CLINIC NO.: [id number] DATE OF SERVICE: February 19, 2023 (Marquis) [...] injections. Shefollows with multiple doctors including and tobacco wetter, alteration specialist, leather coverer and PCP. She has been told they [...] which included preparing to see the patient, lwpj-mq-aptr patient care, completing clinical documentation, performing a medically appropriate examination, counseling and educating the patient/family/caregiver, ordering medications, tests, or p rocedures, and independently interpreting results (not separately reported). Jose Najera MD, CPE Hematology and Oncology Services Provided at: [place], [place] CC: Madelaine Ferris MD [address] [facility] [address] documented in this encounterUniversity Hospitals Geauga Medical Center09-26-2023 Miscellaneous Notes* Telephone Encounter - [...] Department RAYRAY INJECTION TEACHING 03/11/2023 7:30 AM [facility] MEG VIDEO SPEC EST 08/12/2023 9:00 AM [facility] MEG Last Ophthalmology Check for Plaquenil [...] diagnoses: Vitamin D deficiency documented in this encounterUniversity Hospitals Geauga Medical Center09-18-2023 Miscellaneous Notes* Telephone Encounter - Mirela Carlos - 02/08/2023 11:12 AM EDT Spoke with patient Will get labs done when she does labs in Dec for Dre/Onc Mailed orders for DXA to pt so she can [facility] Scheduled Teaching visit for 4 weeks out [...] density (1st time) patient requests order for Tignall Please schedule follow up office visit for [...] Ni MD documented in this encounterUniversity Hospitals Geauga Medical Center09-14-2023 History of Present illness Narrative* Carlene Rendon - 02/04/2023 9:31 AM EDT [facility] received prescription(s) for Benlysta from Dr. Ni. Benefits investigation was conducted, indicating that a prior authorization is required by patients plan with [facility]. Encounter will be updated once prior authorization has been submitted by [facility]. Carlene Rendon [facility], Inflammatory P: [phone] F: [phone] documented in this encounterUniversity Hospitals Geauga Medical Center09-14-2023 NoteAdena Health System09-14-2023 NoteAdena Health System09-14-2023 NoteAdena Health System09-14-2023 NoteAdena Health System09-14-2023 History of Present illness Narrative* Lynne Ni [...] visit. Either the patient or their legal new accounts representative has been informed of the risks [...] metoprolol for POTs, avoid aggravating triggers, 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 teacher pain recommendations per primary care provider/pain clinic/patient [...] Due for eye exam. Labs sent to [facility]/completed in 06/2021 (no results faxed to office, [...] COVID-19 original vaccine, age 12+ yr, monovalent ([employer] - PURPLE TOP) 09/28/2020 10/19/2020 05/26/2021 COVID-19 vaccine, age 12+ yr, bivalent ([employer]) 02/08/2022 Pneumovax no Flu shot no Tetanus [...] (33);NL cbc, cmp, negative hla b27; Outside [place] 06/2021 low vitamin D 16, vitamin b12-307;high [...] rate M25.531, M25.532 Bilateral wrist pain Z79.52 custodial 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 M81.8, T38.0X5A [...] measures, may consider osteoporosis treatment if on senior care steroids/abnormal bmd, take vitamin D script if [...] metoprolol for POTs, avoid aggravating triggers, 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 teacher pain recommendations per primary care provider/pain clinic/patient currently declined cymbalta/lyrica, see ortho, prn brace, start fall precautions, answered all questions and concerns, patient voiced understanding. RECOMMENDATION/PLAN: [facility] Phonologics on 02/04/23 DXA-AXIAL SKELETON DXA-FOREARM SKELETON Reviewed [...] (200mg) daily with a meal Please see farebox repairer every 6-12months while on Hydroxychloroquine. Start 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 [...] your toes, sit-ups, using row machine 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 teacher pain recommendations per primary care provider/pain clinic [...] video & audio (virtual) or phone or nvtd-gw-yqac patient care, completing clinical documentation, obtaining and/or [...] cc Gay Enciso CNP;Dr.Douglas Sai Ferris MD [facility] AMBULATORY VISIT INTAKE QUESTIONNAIRE Question 02/02/2023 [...] Workers' Compensation? No Do you need an brick layer? No [facility] Question 02/02/2023 10:32 [...] Function Percentile (range: 0 - 100) 2 [facility] PROMIS CAT V1.0 - FATIGUE-28 DAYS Question [...] < or = 5) documented in this encounterUniversity Hospitals Geauga Medical Center09-14-2023 NoteAdena Health System09-14-2023 Instructions* Patient Instructions* Lynne Ni MD - [...] (200mg) daily with a meal Please see farebox repairer every 6-12months while on Hydroxychloroquine. 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 daily [...] your toes, sit-ups, using row machine senior care pain recommendations per primary care provider/pain [...] your usual activities immediately. documented in this encounterUniversity Hospitals Geauga Medical Center09-05-2023 Miscellaneous Notes* Telephone Encounter - Maynor Bryson MA - 01/26/2023 7:46 AM EDT patient has viewed the COINTER[employer] message per [employer]. * Telephone Encounter - Lynne Ni MD - 01/24/2023 8:04 PM EDT Please Call patient if MyChart note not read to review results/released to My Chart if tests completed at [facility]: mildly high normal wbc- will monitor. Mildly [...] Ni MD documented in this encounterUniversity Hospitals Geauga Medical Center09-01-2023 Nurse Note* Radha Kebede MA - 01/22/2023 12:17 PM EDT Patient Identification confirmed: yes. Injection given and documented on JUL per provider order. Radha Schofield MA documented in this encounterUniversity Hospitals Geauga Medical Center08-22-2023 Miscellaneous Notes* Telephone Encounter - [...] above prescription(s) to electronically send to [facility] pharmacy. Milagro Mendiola MA documented in this encounterUniversity Hospitals Geauga Medical Center08-11-2023 NoteAdena Health System08-11-2023 History of Present illness Narrative* Misty Nelson MD - 01/01/2023 10:51 AM EDT VIRTUAL VISIT PROGRESS NOTE This is a virtual visit using [employer] video visit. It required patient-provider interaction for themedical decision making as documented below. I have communicated my name and active licensure. The patient's identity and physical location wereverified at the time of this visit. Either the patient or their legal new accounts representative has been informed of the risks [...] otitis or sinusitis No pneumonia She sees alteration specialist and was diagnosed with lupus She is on Plaquenil, 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 Prednisone 10mg once daily for the past year; every few months she gets treated with higher doses of prednisone for flares of her symptoms The medications seem to help the body aches She saw the mechanic welder Treated with B12 and folic acid We [...] Date PAST SURGICAL HISTORY OF 2012 and 2012 pilonidal cyst PAST SURGICAL HISTORY [...] visit. Misty Nelson MD documented in this encounterUniversity Hospitals Geauga Medical Center07-28-2023 Miscellaneous Notes* Telephone Encounter - Wilmer Driver APRN.CNP - 12/18/2022 10:48 AM EDT Spoke with patient this morning, 12/18/2022. Wilmer Driver APRN.TRUE * Telephone Encounter - Lidia Argueta RN - 12/18/2022 9:31 AM EDT Pt called habilitation specialist service last evening stating she was suppose to have a phone call with Wilmer at 330 and never received a call. Pt is still waiting (536 pm 12/17/22). Please advise Lidia Argueta RN documented in this encounterUniversity Hospitals Geauga Medical Center07-28-2023 [facility]-28-[facility]23 History of Present illness Narrative* Wilmer Driver [...] Total Time Spent: 21 minutes Wilmer Driver APRN.CAR REPOSSESSOR NAME: Jones Haley CLINIC NO.: [id number] DATE OF SERVICE: October 22, 2022 ([place]) [...] injections. Shefollows with multiple doctors including and tobacco wetter, alteration specialist, leather coverer and PCP. She has been told they [...] which included preparing to see the patient, [id number]-[id number] patient care, completing clinical documentation, performing a medically appropriate examination, counseling and educating the patient/family/caregiver, ordering medications, tests, or p rocedures, and independently interpreting results (not separately reported). Jose Najera MD, CPE Hematology and Oncology Services Provided at: [place], [place] CC: Madelaine Ferris MD [address] [facility] [address] documented in this encounterUniversity Hospitals Geauga Medical Center07-26-2023 Miscellaneous Notes* Telephone Encounter - Pamella Bettencourt RN - 12/16/2022 1:14 PM EDT Pt notified and verbalizes understanding. Clerical: Please change tomorrow's appointment to a phone visit at the end of Wilmer's day. Preferred number is [phone]. In addition, pt will be in next [...] prefer we switch her toVik's schedule? Pamella Bettencourt RN documented in this encounterUniversity Hospitals Geauga Medical Center07-23-2023 Miscellaneous Notes* Telephone Encounter - [...] advise Enma Hamm RN documented in this encounterUniversity Hospitals Geauga Medical Center07-04-2023 Miscellaneous Notes* Telephone Encounter - [...] accordingly. Lynne Ni MD documented in this [facility]06-29-2023 Nurse Note* Margret Cuenca - 11/19/2022 11:01 AM EDT Patient Identification confirmed: yes. Injection given and documented on JUL per provider order. Margret Cuenca documented in this [facility]06-01-2023 Nurse Note* Stacy Gutiérrez Ma - 10/22/2022 11:50 AM EDT Patient Identification confirmed: yes. Injection given and documented on JUL per provider order. Stacy Gutiérrez Ma documented in this [facility]06-01-2023 Instructions* Patient Instructions* Jose Najera MD - 10/22/2022 11:43 AM EDT B12 Shot today and every 4 weeks. Continue Folic acid. Follow up in 8 Weeks - labs 1 week before. documented in this [facility]06-01-2023 History of Present illness Narrative* Jose Najera MD - 10/22/2022 11:35 AM EDT Images from the original note were not included. NAME: Jones Haley [facility] NO.: [id number] DATE OF SERVICE: October 22, 2022 ([place]) [...] injections. Shefollows with multiple doctors including and tobacco wetter, alteration specialist, leather coverer and PCP. She has been told they [...] which included preparing to see the patient, tgti-ma-eflh patient care, completing clinical documentation, performing a medically appropriate examination, counseling and educating the patient/family/caregiver, ordering medications, tests, or p rocedures, and independently interpreting results (not separately reported). Jose Najera MD, CPE Hematology and Oncology Services Provided at: [place], [place] CC: Madelaine Ferris MD [address] [facility] [address] documented in this encounterUniversity Hospitals Geauga Medical Center05-04-2023 Nurse Note* Stacy Gutiérrez Ma - 09/24/2022 10:22 AM EDT Patient Identification confirmed: yes. Injection given and documented on JUL per provider order. Stacy Gutiérrez Ma documented in this encounterUniversity Hospitals Geauga Medical Center04-18-2023 Miscellaneous Notes* Telephone Encounter - Stacy Hernandez - 09/08/2022 2:27 PM EDT Pharmacy-Reviewed Medication History Patient Name:Jim Haley : 1980 Patient Contact Attempt: First attempt Adherence Packing Program Accepted? No, patient does not wish to participate. Patient is not eligible for adherence packaging because PCP is not within [facility]. Patient wishes to continue at [facility] since medication bottles will look the same and then she can pick-up the medications when she needs them. Stacy Hernandez September 08, 2022 2:28 PM [facility] [phone] documented in this encounterUniversity Hospitals Geauga Medical Center04-17-2023 History of Present illness Narrative* Christie Phan MD - 09/07/2022 2:00 PM EDT Images from the original note were not included. [facility] Virtual Follow-Up [...] which included preparing to see the patient, mtio-[id number] patient care, completing clinical documentation, performing a medically appropriate examination, counseling and educating the patient/family/caregiver, ordering medications, tests, or p rocedures, and communicating with other HCPs (not separately reported). I have communicated my name and active licensure. The patient's identity and physical location wereverified at the time of this visit. Either the patient or their legal new accounts representative has been informed of the risks and benefits of -- and alternatives to -- treatment through a remote evaluation andconsents to proceed with the evaluation remotely. Christie Phan MD, CT, [facility] Lifestyle Medicine Specialist documented in this encounterUniversity Hospitals Geauga Medical Center04-17-2023 Nurse Note* Milagro Mendiola MA - 09/07/2022 2:00 PM EDT Called pt to do intake for video visit pt unavailable lft vm msg sent my chart. Milagro Mendiola MA documented in this [facility]04-10-2023 Miscellaneous Notes* Telephone Encounter - Shantel Higgins MA - 08/31/2022 8:38 AM EDT called [facility] pharmacy - pharmacy had 1 refill remaining no action needed from our office documented in this encounterUniversity Hospitals Geauga Medical Center04-06-2023 Nurse Note* Stacy Gutiérrez Ma - 08/27/2022 10:31 AM EDT Patient Identification confirmed: yes. Injection given and documented on JUL per provider order. Stacy Gutiérrez Ma documented in this encounter[address]06-2023 History of Present illness Narrative* Wilmer Driver APRN.CAR REPOSSESSOR - 08/27/2022 10:00 AM EDT Images from the original note were not included. NAME: Jones Haley [facility] NO.: [id number] DATE OF SERVICE: August 27, 2022 (Bob) [...] injections. Shefollows with multiple doctors including and tobacco wetter, alteration specialist, leather coverer and PCP. She has been told they [...] APRN.TRUE Hematology and Oncology Services Provided at: [place], [place] CC: Madelaine Ferris MD [address] [facility] [address] I spent a total of 30 minutes on the date of the service which included preparing to see the patient, gqqq-ty-bhvx patient care, completing clinical documentation, obtaining and/or reviewing separately obtained history, performing a medically appropriate examination, counseling and educating the pat ient/family/caregiver, ordering medications, tests, or procedures, independently interpreting results (not separately reported), and communicating results to the patient/family/caregiver. documented in this encounterUniversity Hospitals Geauga Medical Center03-29-2023 Miscellaneous Notes* Telephone Encounter - Freda Noland RN - 08/19/2022 6:42 PM EDT -noted MyChart message read by patient 08/19/22 . Last read by Jones Haley at 3:33 PM on 08/19/2022 * Telephone Encounter - Lynne Ni MD - 08/19/2022 3:21 PM EDT Please Call patient if MyChart note not read to review results/released to My Chart if tests completed at [facility]: Improved/ mildly high normal inflammatory test- will monitor. Improved/mildly low vitamin b12- take over the counter [id number] mcg daily. Improved/ normal rest of rheum [...] Ni MD documented in this encounterUniversity Hospitals Geauga Medical Center03-28-2023 Miscellaneous Notes* Telephone Encounter - Beatriz aSnchez LPN - 08/18/2022 8:32 AM EDT [facility] [...] Ni MD documented in this encounterUniversity Hospitals Geauga Medical Center03-20-2023 Miscellaneous Notes* Telephone Encounter - Christie Phan MD - 08/10/2022 9:46 AM EDT [facility] requesting refill, patient never started according to the chart and I have not seen her in follow-up. * Telephone Encounter - Jami Everett Cma - 08/10/2022 7:40 AM EDT [facility] Pharmacy request for the following refill(s): Requested Prescriptions Pending Prescriptions Disp Refills DULoxetine (CYMBALTA) 20 mg capsule [Pharmacy Med Name: DULOXETINE HCL DR 20 MG CAP] 30 capsule 2 Sig: TAKE 1 CAPSULE BY MOUTH ONCE DAILY Please review and advise. Jami Everett Cma documented in this encounterUniversity Hospitals Geauga Medical Center03-06-2023 Instructions* Patient Instructions* Lexus Heck [...] are resources available at the [facility] such as a nutrition consultation or referral to weight management programs at our [facility] [place]. Please let us know if we can [...] the central scheduling system for the [facility] [place] at [phone]. [facility] now offers direct scheduling for patients to schedule appointments. Virtual visits are also available. If not covered by your insurance, there is a 35% discount. Please contact your insurance to determine coverage. Call the office at [phone], option #5 for questions. documented in this encounterUniversity Hospitals Geauga Medical Center03-06-2023 History of Present illness Narrative* Lexus Heck APRN.CNP - 07/27/2022 10:30 AM EST Images from the original note were not included. [facility] Virtual Visit [...] will have a prescription sent to a [employer]) company - [employer] who will be calling you in the next 1-2 weeks or so. Please call them directly or us if you do not hear from them in this time frame. - Will request formal mask fitting - You should be eligible for new supplies approximately every 3-6 months, depending on your insurance coverage. - If your mask doesn't fit well, call the [employer] company before 30 days are up to [...] Tips for good sleep hygiene shared in [employer]. - Follow up in 2 months in the office. Recommend scheduling this appointment now to ensure the besttime for you. [facility] on 04/13/22 CONSULT TO SLEEP MEDICINE - ADULT CPAP/BIPAP/OTHER PAP THERAPY ORDER Lawanda Miranda MD Interval history : Here for follow up for sleep apnea management. SLEEP APNEA Sleep apnea type : JOSE RAFAEL Most Recent Apnea-Hypopnea Index (AHI): 5.3 Treatment : PAP therapy DME: Josh MOJICA fax: [phone] DME ph: [phone] PAP History: Current PAP settin-15 cm H2O. [...] or near accidents due to drowsy drivin [place] Sleepiness Scale 04/12/2022 07/23/2022 Score 4 (No [...] medications, tests, or procedures. documented in this encounterUniversity Hospitals Geauga Medical Center03-03-2023 Miscellaneous Notes* Telephone Encounter - [...] complete patient specific tasks. documented in this [facility]03-01-2023 Miscellaneous Notes* Telephone Encounter - Gem Mercedes RN - 07/22/2022 2:37 PM EST [employer] message sent documented in this [facility]12-28-2022 History of Present illness Narrative* Kenzie Shannon - 05/20/2022 2:28 PM EST Patient Identification confirmed: yes. Injection given and documented on JUL per provider order. Kenzie Shannon documented in this [facility]12-28-2022 Miscellaneous Notes* Addendum Note - Jose Najera MD - 05/20/2022 2:27 PM ESTAddended by: JOSE NAJERA on: 05/20/2022 02:27 PM Modules accepted: Orders documented in this [facility]12-28-2022 Instructions* Patient Instructions* Jose Najera MD - 05/20/2022 2:23 PM EST B12 Shot Today and every 4 weeks Get fit for CPAP mask and setting this 05/28/2021 Continue Folic acid. RTC in 8 Weeks - labs 1 week before. documented in this [facility]12-28-2022 History of Present illness Narrative* Jose Najera MD - 05/20/2022 1:30 PM EST Images from the original note were not included. NAME: hugoJones [facility] NO.: [id number] DATE OF SERVICE: May 20, 2022 ([place]) [...] which included preparing to see the patient, lwrx-no-zuoo patient care, completing clinical documentation, performing a medically appropriate examination, counseling and educating the patient/family/caregiver, ordering medications, tests, or p rocedures, and independently interpreting results (not separately reported). Jose Najera MD, CPE Hematology and Oncology Services Provided at: [place], [place] CC: Jose Najera [address] [place] [address] [facility] [address] Madelaine Ferris MD, MD [address] [facility] [address] CC: Madelaine Ferris MD [address] [id number] documented in this encounterUniversity Hospitals Geauga Medical Center12-13-2022 Miscellaneous Notes* Telephone Encounter - Gem Mercedes RN - 05/05/2022 2:39 PM EST Faxed order, office notes, demographics, and sleep study to: DME name: Josh Reese DME fax: [phone] DME ph: [phone] Confirmation received. documented in this encounterUniversity Hospitals Geauga Medical Center12-13-2022 Miscellaneous Notes* Telephone Encounter - Gem Mercedes RN - 05/05/2022 12:00 PM EST [employer] message sent documented in this encounterUniversity Hospitals Geauga Medical Center12-13-2022 Miscellaneous Notes* Telephone Encounter - ANALILIA Monterroso - 05/05/2022 11:36 AM EST [facility] received your PAP order. Due to a major Dynasil recall and manufacturing shortage, we are unable to fulfill the request to provide your patient with a CPAP/BIPAP machine at this time. We will keep the request on file and provide when inventory is available or you can forward the order to another DME provider such as [employer], [employer] or [employer]. Caring for our patients is our top priority and we apologize for this delay. Thank you for your patience during this time. [phone] #1 documented in this encounterUniversity Hospitals Geauga Medical Center12-02-2022 Miscellaneous Notes* Telephone Encounter - [...] doctor has noted concern for EDS. Her alteration specialist has told her that she has Lupus. Based on her history, I noted we can offer in-person evaluations for herself and/or her son to see if any genetic testing may be useful. I validated and provided support on the difficulty with her ambulation and transport concerns. [facility] other [facility] and only available at [facility]. I offered social work and/or transport assistance for the visit. She declined this and will discuss with her regarding the transport. She verbalized understanding the reasons for in-person evaluation recommended. She has the [facility] line and will call to reschedule for an in-person evaluation at [facility]. Luann Lance MD Leveler, Associate Staff [facility] documented in this encounterUniversity Hospitals Geauga Medical Center11-30-2022 Miscellaneous Notes* Telephone Encounter - Eliza Licea Research Coordinator - 04/22/2022 2:24 PM EST [...] copy of the report. Confirmed patient's email [email or web address]. Eliza Licea Genetic Counselor Nurse Head documented in this encounterUniversity Hospitals Geauga Medical Center11-08-2022 Miscellaneous Notes* Telephone Encounter - Renate Lawrence MA - 03/31/2022 2:34 PM EST [facility] pharmacy electronically requests the following refill(s) Requested Prescriptions Pending Prescriptions Disp Refills DULoxetine (CYMBALTA) 20 mg capsule [Pharmacy Med Name: DULOXETINE HCL DR 20 MG CAP] 30 capsule 2 Sig: TAKE 1 CAPSULE BY MOUTH ONCE DAILY Renate Lawrence MA documented in this [facility]11-07-2022 Miscellaneous Notes* Telephone Encounter - Maria Eugenia Sheehan LPN - 03/30/2022 11:53 AM EST [facility] and sent MyChart regarding Dr. Nelson's directive. [...] Thanks. Misty Nelson MD documented in this [facility]11-07-2022 Miscellaneous Notes* Telephone Encounter - Maria Eugenia Sheehan LPN - 03/30/2022 11:49 AM EST [facility] and sent MyChart regarding Dr. Nelson's directive. documented in this [facility]10-26-2022 Instructions* Patient Instructions* Jose Najera MD - 03/18/2022 11:16 AM EDT Referral for sleep study pending Start on Folic acid. RTC in 8 Weeks - labs 1 week before. documented in this [facility]10-26-2022 History of Present illness Narrative* Jose Najera MD - 03/18/2022 10:45 AM EDT Images from the original note were not included. NAME: Jones Haley CLINIC NO.: [id number] DATE OF SERVICE: March 18, 2022 ([place]) [...] which included preparing to see the patient, jdis-nz-wcew patient care, completing clinical documentation, performing a medically appropriate examination, counseling and educating the patient/family/caregiver, ordering medications, tests, or p rocedures, and independently interpreting results (not separately reported). Jose Najera MD, CPE Hematology and Oncology Services Provided at: [place], [place] CC: Madelaine Ferris MD [address] [address] documented in this encounterUniversity Hospitals Geauga Medical Center10-18-2022 History of Present illness Narrative* Misty Nelson MD - 03/10/2022 2:14 PM EDT VIRTUAL VISIT PROGRESS NOTE This is a virtual visit using [employer] video visit. It required patient-provider interaction for [...] the HR increases again She sees a real estate associate in [place] PCP is running the Holter and echo [...] but was not pursued yet Lives in [place] She did have LN biopsy in the [...] visit. Misty Nelson MD documented in this encounterUniversity Hospitals Geauga Medical Center10-17-2022 History of Past illness Narrative* Problem Noted Date Diagnosed Date Resolved Date Obesity, Class II, BMI 35-39.9 03/09/2022 03/10/2023 Obesity (BMI 30-39.9) 05/31/20142016 documented as of this encounter (statuses as of 03/10/2023) [facility]10-17-2022 History of Past illness Narrative* Problem Noted Date Diagnosed Date Resolved Date Obesity, Class II, BMI 35-39.9 03/09/2022 03/10/2023 Obesity (BMI 30-39.9) 05/31/20142016 documented as of this encounter (statuses as of 03/11/2023) [facility]10-17-2022 History of Past illness Narrative* Problem Noted Date Diagnosed Date Resolved Date Obesity, Class II, BMI 35-39.9 03/09/2022 03/10/2023 Obesity (BMI 30-39.9) 05/31/20142016 documented as of this encounter (statuses as of 03/19/2023) [address]17-[address]22 History of Past illness Narrative* Problem Noted Date Diagnosed Date Resolved Date Obesity, Class II, BMI 35-39.9 03/09/2022 03/10/2023 Obesity (BMI 30-39.9) 05/31/20142016 documented as of this encounter (statuses as of 03/24/2023) [address]17-[address]22 History of Past illness Narrative* Problem Noted Date Diagnosed Date Resolved Date Obesity, Class II, BMI 35-39.9 03/09/2022 03/10/2023 Obesity (BMI 30-39.9) 05/31/20142016 documented as of this encounter (statuses as of 04/16/2023) [address]17-[address]22 History of Past illness Narrative* Problem Noted Date Diagnosed Date Resolved Date Obesity, Class II, BMI 35-39.9 03/09/2022 03/10/2023 Obesity (BMI 30-39.9) 05/31/20142016 documented as of this encounter (statuses as of 04/23/2023) [address]17-[address]22 History of Past illness Narrative* Problem Noted Date Diagnosed Date Resolved Date Obesity, Class II, BMI 35-39.9 03/09/2022 03/10/2023 Obesity (BMI 30-39.9) 05/31/20142016 documented as of this encounter (statuses as of 04/27/2023) [address]17-[address]22 History of Past illness Narrative* Problem Noted Date Diagnosed Date Resolved Date Obesity, Class II, BMI 35-39.9 03/09/2022 03/10/2023 Obesity (BMI 30-39.9) 05/31/20142016 documented as of this encounter (statuses as of 04/27/2023) [address]17-[address]22 History of Past illness Narrative* Problem Noted Date Diagnosed Date Resolved Date Obesity, Class II, BMI 35-39.9 03/09/2022 03/10/2023 Obesity (BMI 30-39.9) 05/31/20142016 documented as of this encounter (statuses as of 05/31/2023) [address] History of Past illness Narrative* Problem Noted Date Diagnosed Date Resolved Date Obesity, Class II, BMI 35-39.9 03/09/2022 03/10/2023 Obesity (BMI 30-39.9) 05/31/20142016 documented as of this encounter (statuses as of 07/13/2023) [address]17-[address]22 History of Past illness Narrative* Problem Noted Date Diagnosed Date Resolved Date Obesity, Class II, BMI 35-39.9 03/09/2022 03/10/2023 Obesity (BMI 30-39.9) 05/31/20142016 documented as of this encounter (statuses as of 07/13/2023) [address]17-[address]22 History of Past illness Narrative* Problem Noted Date Diagnosed Date Resolved Date Obesity, Class II, BMI 35-39.9 03/09/2022 03/10/2023 Obesity (BMI 30-39.9) 05/31/20142016 documented as of this encounter (statuses as of 08/05/2023) [address]17-[address]22 History of Past illness Narrative* Problem Noted Date Diagnosed Date Resolved Date Obesity, Class II, BMI 35-39.9 03/09/2022 03/10/2023 Obesity (BMI 30-39.9) 05/31/20142016 documented as of this encounter (statuses as of 08/12/2023) [address]17-[address]22 History of Past illness Narrative* Problem Noted Date Diagnosed Date Resolved Date Obesity, Class II, BMI 35-39.9 03/09/2022 03/10/2023 Obesity (BMI 30-39.9) 05/31/20142016 documented as of this encounter (statuses as of 09/01/2023) [address]17-[address]22 History of Past illness Narrative* Problem Noted Date Diagnosed Date Resolved Date Obesity, Class II, BMI 35-39.9 03/09/2022 03/10/2023 Obesity (BMI 30-39.9) 05/31/20142016 documented as of this encounter (statuses as of 09/06/2023) [address]17-[address]22 History of Past illness Narrative* Problem Noted Date Diagnosed Date Resolved Date Obesity, Class II, BMI 35-39.9 03/09/2022 03/10/2023 Obesity (BMI 30-39.9) 05/31/20142016 documented as of this encounter (statuses as of 09/11/2023) [facility]17[facility]22 Instructions* Patient Instructions* Christie Phan MD - 03/09/2022 12:47 PM EDT Check EKG for prolonged QT. If normal, I would try going back on the Lexapro, can recheck an EKG inabout a month to make sure that things are going ok. (I'm leaving this, but we are changing to Cymbalta) Tilt Table Test [email or web address] documented in this encounterUniversity Hospitals Geauga Medical Center10-17-2022 History of Present illness Narrative* Christie Phan MD - 03/09/2022 12:08 PM EDT Images from the original note were not included. [facility] Virtual Initial [...] ago Has never really been a great family consultant Went to [place] able to walk [...] the date of the service which included gxuh-ld-wfmd patient care and counseling and educating the patient/family/caregiver. documented in this encounterUniversity Hospitals Geauga Medical Center10-14-2022 Miscellaneous Notes* Telephone Encounter - Krista Braswell MA - 03/06/2022 7:08 AM EDT Pt was notified via . * Telephone Encounter - Lynne Ni MD - 03/05/2022 5:56 PM EDT Please Call patient if MyChart note not read to review results/released to My Chart if tests completed at [facility]: Mildly high vitamin b12- decrease over [...] Ni MD documented in this encounterUniversity Hospitals Geauga Medical Center10-12-2022 Instructions* Patient Instructions* Jose Najera MD - 03/04/2022 11:42 AM EDT Labs today. Referral for sleep study. RTC in 2 weeks. Consider immunology referral. Referral to lifestyle medicine documented in this encounterUniversity Hospitals Geauga Medical Center10-12-2022 History of Present illness Narrative* Jose Najera MD - 03/04/2022 11:19 AM EDT Images from the original note were not included. NAME: Jones Haley [facility] NO.: [id number] DATE OF SERVICE: March 04, 2022 Referring [...] which included preparing to see the patient, [id number] patient care, completing clinical documentation, obtaining and/or reviewing separately obtained history, performing a medically appropriate examination, counseling and educating the pat ient/family/caregiver, ordering medications, tests, or procedures, and independently interpreting results (not separately reported). Jose Najera MD, CPE Hematology [facility] Oncology Services Provided at: [place], [place] CC: Madelaine Ferris MD [address] [id number] [place] [address] [place], [place] [id number] documented in this encounterUniversity Hospitals [facility]2022 History of Present illness Narrative* Tiffany Head, - 02/24/2022 6:00 PM EDT VIRTUAL VISIT PROGRESS NOTE This is a virtual visit using [employer] video visit. 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 Her alteration specialist is Dr. Ni. Dr. Ni and [...] muscle aches. Nov, Tachycardia (ICD-10 - R00.0) 06 Naeem, 2022 Flushing (ICD-10 - R23.2) [email or web address] Other 06-03-2022 Nurse Note* Lynne Ni MD - 10/24/2021 8:32 AM EDT See progress note documented in this encounterUniversity Hospitals Ge[facility]06-03-2022 History of Present illness Narrative* [...] Due for eye exam. Labs sent to [facility]/completed in 06/2021 (no results faxed to office, [...] Date(s) Administered COVID-19 vaccine, age 12+ yr ([employer] - PURPLE TOP) 09/28/2020 10/19/2020 Pneumovax no [...] Diagnostic tests reviewed for today's visit: Outside [place] 06/2021 low vitamin D 16, vitamin b12-307;high [...] Due for eye exam. Labs sent to [facility]/completed in 06/2021 (no results faxed to office, [...] (200mg) daily with a meal Please see farebox repairer every 6-12months while on Hydroxychloroquine. Recommend goal: [...] your toes, sit-ups, using row machine senior care pain recommendations per primary care provider/pain [...] video & audio (virtual) or phone or [id number] patient care, completing clinical documentation, obtaining and/or [...] body? With SOME difficulty Bend down to order picker/assembler clothing from the floor? With SOME difficulty [...] Strongly Agree documented in this encounterUniversity Hospitals Geaug[facility] Center06-03-2022 Instructions* Patient Instructions* Lynne Ni [...] (200mg) daily with a meal Please see farebox repairer every 6-12months while on Hydroxychloroquine. Recommend goal: [...] your toes, sit-ups, using row machine 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 teacher pain recommendations per primary care provider/pain clinic Thank you. documented in this encounterUniversity Hospitals Geaug[facility] Center05-25-2022 Evaluation note* Encounter Date Diagnosis [...] diagnosis I will defer that to her alteration specialist. September, Tachycardia (ICD-10 - R00.0) September, Flushing (ICD-10 - R23.2) [email or web address] Other 04-28-2022 Evaluation note* Encounter Date Diagnosis Assessment Notes Treatment Notes Treatment Clinical Notes Aug, Elevated sed rate (ICD-10 - R70.0) [email or web address] Other 04-21-2022 Evaluation note* Encounter Date Diagnosis [...] diagnosis I will defer that to her alteration specialist. [email or web address] Other 05-17-2021 Hospital Discharge instructions* Instructions* So [...] be sent through Care Everywhere. * amlodipine (Cameroonian) * nitroglycerin (oral/sublingual) (Cameroonian) [facility] Phone: [phone] 522-196805-17-2021 History of Present illness Narrative* So Carlisle RN - 10/07/2020 1:20 PM EDT Remaining air removed from TR band, no bleeding or hematoma noted. Radial pulse palpable. Pressure dressing applied with arm board in place. * So Carlisle RN - 10/07/2020 10:00 AM EDT All discharge instructions reviewed, questions answered, paper signed and given copy. Patient discharged with and belongings. * oS Carlisle RN - 10/07/2020 9:09 AM EDT Patient admitted, consent signed and questions answered. Patient ready for procedure. Call light toreach with side rails up 2 of 2. Family at bedside with patient. History and physical needs to be completed. [facility] Phone: [phone] History of Past illness Narrative* Problem Noted Date Resolved Date Obesity (BMI 30-39.9) 05/31/2014 07/06/2016 documented as of this encounter (statuses as of 10/24/2021) [address] History of Past illness Narrative* Problem Noted Date Resolved Date Obesity (BMI 30-39.9) 05/31/2014 07/06/2016 documented as of this encounter (statuses as of 02/25/2022) [address] History of Past illness Narrative* Problem Noted Date Resolved Date Obesity (BMI 30-39.9) 05/31/2014 07/06/2016 documented as of this encounter (statuses as of 03/02/2022) [address] History of Past illness Narrative* Problem Noted Date Resolved Date Obesity (BMI 30-39.9) 05/31/2014 07/06/2016 documented as of this encounter (statuses as of 03/04/2022) [address]2015 History of Past illness Narrative* Problem Noted Date Resolved Date Obesity (BMI 30-39.9) 05/31/2014 07/06/2016 documented as of this encounter (statuses as of 03/05/2022) [address] History of Past illness Narrative* Problem Noted Date Resolved Date Obesity (BMI 30-39.9) 05/31/2014 07/06/2016 documented as of this encounter (statuses as of 03/06/2022) [address] History of Past illness Narrative* Problem Noted Date Resolved Date Obesity (BMI 30-39.9) 05/31/2014 07/06/2016 documented as of this encounter (statuses as of 03/09/2022) [address] History of Past illness Narrative* Problem Noted Date Resolved Date Obesity (BMI 30-39.9) 05/31/2014 07/06/2016 documented as of this encounter (statuses as of 03/10/2022) [address] History of Past illness Narrative* Problem Noted Date Resolved Date Obesity (BMI 30-39.9) 05/31/2014 07/06/2016 documented as of this encounter (statuses as of 03/10/2022) [address] History of Past illness Narrative* Problem Noted Date Resolved Date Obesity (BMI 30-39.9) 05/31/2014 07/06/2016 documented as of this encounter (statuses as of 03/12/2022) [address] History of Past illness Narrative* Problem Noted Date Resolved Date Obesity (BMI 30-39.9) 05/31/2014 07/06/2016 documented as of this encounter (statuses as of 03/18/2022) [address] History of Past illness Narrative* Problem Noted Date Resolved Date Obesity (BMI 30-39.9) 05/31/2014 07/06/2016 documented as of this encounter (statuses as of 03/22/2022) [address] History of Past illness Narrative* Problem Noted Date Resolved Date Obesity (BMI 30-39.9) 05/31/2014 07/06/2016 documented as of this encounter (statuses as of 03/30/2022) [address] History of Past illness Narrative* Problem Noted Date Resolved Date Obesity (BMI 30-39.9) 05/31/2014 07/06/2016 documented as of this encounter (statuses as of 03/30/2022) [address] History of Past illness Narrative* Problem Noted Date Resolved Date Obesity (BMI 30-39.9) 05/31/2014 07/06/2016 documented as of this encounter (statuses as of 04/03/2022) [address] History of Past illness Narrative* Problem Noted Date Resolved Date Obesity (BMI 30-39.9) 05/31/2014 07/06/2016 documented as of this encounter (statuses as of 04/03/2022) [address] History of Past illness Narrative* Problem Noted Date Resolved Date Obesity (BMI 30-39.9) 05/31/2014 07/06/2016 documented as of this encounter (statuses as of 04/22/2022) [address] History of Past illness Narrative* Problem Noted Date Resolved Date Obesity (BMI 30-39.9) 05/31/2014 07/06/2016 documented as of this encounter (statuses as of 04/24/2022) [address] History of Past illness Narrative* Problem Noted Date Resolved Date Obesity (BMI 30-39.9) 05/31/2014 07/06/2016 documented as of this encounter (statuses as of 05/05/2022) [address] History of Past illness Narrative* Problem Noted Date Resolved Date Obesity (BMI 30-39.9) 05/31/2014 07/06/2016 documented as of this encounter (statuses as of 05/05/2022) [address]2015 History of Past illness Narrative* Problem Noted Date Resolved Date Obesity (BMI 30-39.9) 05/31/2014 07/06/2016 documented as of this encounter (statuses as of 05/05/2022) [address] History of Past illness Narrative* Problem Noted Date Resolved Date Obesity (BMI 30-39.9) 05/31/2014 07/06/2016 documented as of this encounter (statuses as of 05/26/2022) [address] History of Past illness Narrative* Problem Noted Date Resolved Date Obesity (BMI 30-39.9) 05/31/2014 07/06/2016 documented as of this encounter (statuses as of 05/27/2022) [address]2015 History of Past illness Narrative* Problem Noted Date Resolved Date Obesity (BMI 30-39.9) 05/31/2014 07/06/2016 documented as of this encounter (statuses as of 07/22/2022) [address]2015 History of Past illness Narrative* Problem Noted Date Resolved Date Obesity (BMI 30-39.9) 05/31/2014 07/06/2016 documented as of this encounter (statuses as of 07/25/2022) [address] History of Past illness Narrative* Problem Noted Date Resolved Date Obesity (BMI 30-39.9) 05/31/2014 07/06/2016 documented as of this encounter (statuses as of 07/27/2022) [address]2015 History of Past illness Narrative* Problem Noted Date Resolved Date Obesity (BMI 30-39.9) 05/31/2014 07/06/2016 documented as of this encounter (statuses as of 07/28/2022) [address] History of Past illness Narrative* Problem Noted Date Resolved Date Obesity (BMI 30-39.9) 05/31/2014 07/06/2016 documented as of this encounter (statuses as of 08/10/2022) [address]2015 History of Past illness Narrative* Problem Noted Date Resolved Date Obesity (BMI 30-39.9) 05/31/2014 07/06/2016 documented as of this encounter (statuses as of 08/18/2022) [address]2015 History of Past illness Narrative* Problem Noted Date Resolved Date Obesity (BMI 30-39.9) 05/31/2014 07/06/2016 documented as of this encounter (statuses as of 08/19/2022) [address]2015 History of Past illness Narrative* Problem Noted Date Resolved Date Obesity (BMI 30-39.9) 05/31/2014 07/06/2016 documented as of this encounter (statuses as of 08/27/2022) [address] History of Past illness Narrative* Problem Noted Date Resolved Date Obesity (BMI 30-39.9) 05/31/2014 07/06/2016 documented as of this encounter (statuses as of 08/29/2022) [address]2015 History of Past illness Narrative* Problem Noted Date Resolved Date Obesity (BMI 30-39.9) 05/31/2014 07/06/2016 documented as of this encounter (statuses as of 08/31/2022) [address]2015 History of Past illness Narrative* Problem Noted Date Resolved Date Obesity (BMI 30-39.9) 05/31/2014 07/06/2016 documented as of this encounter (statuses as of 09/08/2022) [address]2015 History of Past illness Narrative* Problem Noted Date Resolved Date Obesity (BMI 30-39.9) 05/31/2014 07/06/2016 documented as of this encounter (statuses as of 09/08/2022) [address]2015 History of Past illness Narrative* Problem Noted Date Resolved Date Obesity (BMI 30-39.9) 05/31/2014 07/06/2016 documented as of this encounter (statuses as of 09/24/2022) [address] History of Past illness Narrative* Problem Noted Date Resolved Date Obesity (BMI 30-39.9) 05/31/2014 07/06/2016 documented as of this encounter (statuses as of 10/22/2022) [address]2015 History of Past illness Narrative* Problem Noted Date Resolved Date Obesity (BMI 30-39.9) 05/31/2014 07/06/2016 documented as of this encounter (statuses as of 10/25/2022) [address]2015 History of Past illness Narrative* Problem Noted Date Resolved Date Obesity (BMI 30-39.9) 05/31/2014 07/06/2016 documented as of this encounter (statuses as of 11/19/2022) [address]2015 History of Past illness Narrative* Problem Noted Date Resolved Date Obesity (BMI 30-39.9) 05/31/2014 07/06/2016 documented as of this encounter (statuses as of 11/25/2022) [address] History of Past illness Narrative* Problem Noted Date Diagnosed Date Resolved Date Obesity (BMI 30-39.9) 05/31/20142016 documented as of this encounter (statuses as of 12/08/2022) [address] History of Past illness Narrative* Problem Noted Date Diagnosed Date Resolved Date Obesity (BMI 30-39.9) 05/31/20142016 documented as of this encounter (statuses as of 12/18/2022) [address] History of Past illness Narrative* Problem Noted Date Diagnosed Date Resolved Date Obesity (BMI 30-39.9) 05/31/20142016 documented as of this encounter (statuses as of 12/18/2022) [address] History of Past illness Narrative* Problem Noted Date Diagnosed Date Resolved Date Obesity (BMI 30-39.9) 05/31/20142016 documented as of this encounter (statuses as of 12/21/2022) [address] History of Past illness Narrative* Problem Noted Date Diagnosed Date Resolved Date Obesity (BMI 30-39.9) 05/31/20142016 documented as of this encounter (statuses as of 12/22/2022) [address] History of Past illness Narrative* Problem Noted Date Diagnosed Date Resolved Date Obesity (BMI 30-39.9) 05/31/20142016 documented as of this encounter (statuses as of 01/02/2023) [address] History of Past illness Narrative* Problem Noted Date Diagnosed Date Resolved Date Obesity (BMI 30-39.9) 05/31/20142016 documented as of this encounter (statuses as of 01/13/2023) [address] History of Past illness Narrative* Problem Noted Date Diagnosed Date Resolved Date Obesity (BMI 30-39.9) 05/31/20142016 documented as of this encounter (statuses as of 01/22/2023) [address] History of Past illness Narrative* Problem Noted Date Diagnosed Date Resolved Date Obesity (BMI 30-39.9) 05/31/20142016 documented as of this encounter (statuses as of 01/26/2023) [address] History of Past illness Narrative* Problem Noted Date Diagnosed Date Resolved Date Obesity (BMI 30-39.9) 05/31/20142016 documented as of this encounter (statuses as of 02/04/2023) [address] History of Past illness Narrative* Problem Noted Date Diagnosed Date Resolved Date Obesity (BMI 30-39.9) 05/31/20142016 documented as of this encounter (statuses as of 02/04/2023) [address] History of Past illness Narrative* Problem Noted Date Diagnosed Date Resolved Date Obesity (BMI 30-39.9) 05/31/20142016 documented as of this encounter (statuses as of 02/07/2023) [address] [address] History of Past illness Narrative* Problem Noted Date Diagnosed Date Resolved Date Obesity (BMI 30-39.9) 05/31/20142016 documented as of this encounter (statuses as of 02/08/2023) [facility] Narrative* Problem Noted Date Diagnosed Date Resolved Date Obesity (BMI 30-39.9) 05/31/20142016 documented as of this encounter (statuses as of 02/16/2023) [facility] Past illness Narrative* Problem Noted Date Diagnosed Date Resolved Date Obesity (BMI 30-39.9) 05/31/20142016 documented as of this encounter (statuses as of 02/19/2023) [facility] illness Narrative* Problem Noted Date Diagnosed Date Resolved Date Obesity (BMI 30-39.9) 05/31/20142016 documented as of this encounter (statuses as of 02/21/2023) [facility] of Past illness Narrative* Problem Noted Date Diagnosed Date Resolved Date Obesity (BMI 30-39.9) 05/31/20142016 documented as of this encounter (statuses as of 03/02/2023) [facility] Diagnosis Other systemic lupus [...] unspecified documented in this encounter [facility] Diagnosis Swelling of lymph nodes- Primary Enlargement of lymph nodes Other systemic lupus erythematosus with other organ involvement (HCC) On prednisone therapy Hair loss Alopecia, unspecified Bilateral sacroiliitis (HCC) Long-term use of Plaquenil 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-term (current) use of other medications documented [facility] this [facility] Diagnosis Vitamin B12 deficiency- Primary Other B-complex deficiencies Vitamin D deficiency Unspecified vitamin D deficiency Elevated sed rate Elevated sedimentation rate Elevated C-reactive protein (CRP) [facility] Diagnosis 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 Other vitamin B12 deficiency anemia Somnolence, daytime Hypersomnia, unspecified Snoring Other dyspnea and respiratory abnormality Chronic fatigue and malaise Chronic fatigue syndrome Obesity, unspecified classification, unspecified obesity type, unspecified whether serious comorbidity present documented in this encounter [facility]* Diagnosis Obesity, Class II, BMI 35-39.9- [...] findings documented in this encounter [facility]* Diagnosis 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 Other vitamin B12 deficiency anemia High total serum IgM documented [facility] this [facility] Diagnosis Raised level of immunoglobulins- Primary Other and unspecified nonspecific immunological findings Wound healing, delayed Open wound(s) (multiple) of unspecified site(s), complicated Current smoker Tobacco use disorder [facility]* Diagnosis Family history of genetic disease- Primary Family history of other condition [facility]* Diagnosis High total serum IgM- Primary Elevated sed rate Elevated sedimentation rate Somnolence, daytime Hypersomnia, unspecified JOSE RAFAEL (obstructive sleep apnea) Obstructive sleep apnea (adult) (pediatric) documented in this encounter [facility]* Diagnosis 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 Other vitamin B12 deficiency anemia Elevated sed rate Elevated sedimentation rate [facility]* Diagnosis 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 Other vitamin B12 deficiency anemia Elevated sed rate Elevated sedimentation rate High total serum IgM Chronic fatigue and malaise Chronic fatigue syndrome [facility] Diagnosis JOSE RAFAEL (obstructive sleep apnea)- [...] Anemia of other chronic disease 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 teacher 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-term [...] with other organ involvement (HCC) 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 senior care 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-term (current) use of other medications [facility] 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 Other vitamin B12 deficiency anemia Chronic fatigue and malaise Chronic fatigue syndrome [facility] Diagnosis High total serum IgM- Primary Low serum IgG for age Current smoker Tobacco use disorder [facility] Diagnosis Obesity, Class II, BMI 35-39.9 Obesity, unspecified Prediabetes Other abnormal glucose [facility] Diagnosis 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 Other vitamin B12 deficiency anemia Elevated sed rate Elevated sedimentation rate [facility] Diagnosis Other systemic lupus erythematosus with other organ involvement (HCC)- Primary Vitamin D deficiency Unspecified vitamin D deficiency Elevated LFTs Other abnormal blood chemistry Anemia of chronic disease Anemia of other chronic disease Elevated sed rate Elevated sedimentation rate Elevated C-reactive protein (CRP) [facility] Diagnosis Other systemic lupus erythematosus [...] wrist pain 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, forearm 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-term (current) use of steroids Steroid-induced osteoporosis Other osteoporosis 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 [facility] Diagnosis Systemic lupus erythematosus with other organ involvement (HCC)- Primary [facility]* Diagnosis 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 Other vitamin B12 deficiency anemia High total serum IgM Elevated sed rate Elevated sedimentation rate [facility] Diagnosis Other systemic lupus erythematosus with other organ involvement (HCC)- Primary documented in this encounter [facility]* Diagnosis Other systemic lupus erythematosus with other organ involvement (HCC) 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 teacher 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-term (current) use of other medications [facility] Diagnosis 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 Other vitamin B12 deficiency anemia Elevated sed rate Elevated sedimentation rate documented in this encounter [facility] note* Diagnosis 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 Other vitamin B12 deficiency anemia Elevated sed rate Elevated sedimentation rate Chronic fatigue and malaise Chronic fatigue syndrome High total serum IgM JOSE RAFAEL (obstructive sleep apnea) Obstructive sleep apnea (adult) (pediatric) documented [facility]* Diagnosis Insulin resistance, unspecified- Primary Depression, recurrent ([facility]) Major depressive disorder, recurrent episode, unspecified Chronic pain syndrome [facility] Diagnosis Systemic lupus erythematosus, unspecified SLE type, unspecified organ involvement status (HCC)- Primary [facility]* Diagnosis 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 Other vitamin B12 deficiency anemia Elevated sed rate Elevated sedimentation rate [facility]* Diagnosis 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 Other vitamin B12 deficiency anemia Elevated sed rate Elevated sedimentation rate documented in this encounter [facility] note* Diagnosis Obesity, Class III, BMI >= 40- Primary Morbid obesity FUO (fever of unknown origin) Fever, unspecified Other chronic pain documented in this encounter [facility] note* Diagnosis Obesity, Class III, BMI >= 40 Morbid obesity documented in this encounter [facility] note* Diagnosis Obesity, Class III, BMI >= 40- Primary Morbid obesity Other chronic pain documented in this encounter [facility] note* Diagnosis Irregular heart rate- Primary Essential hypertension Unspecified essential hypertension Autonomic dysfunction Obstructive sleep apnea syndrome Obstructive sleep apnea (adult) (pediatric) Primary hypertension Unspecified essential hypertension documented in this encounter [facility] Work Phone: Evaluation note* Diagnosis Autoimmune disease ([facility]/HCC)- Primary Autoimmune disease, not elsewhere classified Autonomic dysfunction Lumbosacral radiculopathy Thoracic or lumbosacral neuritis or radiculitis, unspecified Bilateral leg weakness Muscle weakness (generalized) [facility] Diagnosis Shortness of breath- Primary Paroxysmal supraventricular tachycardia PAC (premature atrial contraction) Supraventricular premature beats Current smoker Systemic lupus erythematosus, unspecified SLE type, unspecified organ involvement status (CMS/HCC) Palpitations Obstructive sleep apnea syndrome Obstructive sleep apnea (adult) (pediatric) Morbid obesity (CMS/HCC) Morbid obesity Bilateral lower extremity edema documented in this encounter [facility] Work Phone: Evaluation note* Diagnosis 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 Other vitamin B12 deficiency anemia Elevated sed rate Elevated sedimentation rate [facility] Diagnosis Systemic lupus erythematosus with other organ involvement (HCC)- Primary [facility] Diagnosis Systemic lupus erythematosus with other organ involvement (HCC)- Primary [facility] Diagnosis 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 Other vitamin B12 deficiency anemia Elevated sed rate Elevated sedimentation rate [facility] Diagnosis Other systemic lupus erythematosus with other organ involvement (HCC)- Primary Vitamin D deficiency Unspecified vitamin D deficiency Elevated LFTs Other abnormal blood chemistry Anemia of chronic disease Anemia of other chronic disease Elevated sed rate Elevated sedimentation rate Elevated C-reactive protein (CRP) [facility] Diagnosis 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 Other vitamin B12 deficiency anemia Obstructive sleep apnea syndrome Obstructive sleep apnea (adult) (pediatric) Chronic fatigue and malaise Chronic fatigue syndrome High total serum IgM JOSE RAFAEL (obstructive sleep apnea) Obstructive sleep apnea (adult) (pediatric) Somnolence, daytime Hypersomnia, unspecified [facility] Diagnosis Elevated sed rate- Primary Elevated sedimentation rate Megaloblastic anemia due to vitamin B12 deficiency Other vitamin B12 deficiency anemia [facility]* Diagnosis Other systemic lupus [...] other medications Long-term use of high-risk medication 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-term (current) use of steroids 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 Bilateral hand pain Pain in limb History of vitamin D deficiency Personal history of nutritional deficiency [facility] Diagnosis Elevated sed rate- Primary Elevated sedimentation rate Megaloblastic anemia due to vitamin B12 deficiency Other vitamin B12 deficiency anemia [facility] Diagnosis Other systemic lupus erythematosus with other organ involvement (HCC) 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 teacher 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-term (current) use of other medications [facility] Diagnosis Systemic lupus erythematosus with other organ involvement (HCC)- Primary [facility] Diagnosis Vitamin B12 deficiency- Primary Other B-complex deficiencies documented [facility] this [facility] Diagnosis Elevated sed rate- Primary Elevated sedimentation rate Megaloblastic anemia due to vitamin B12 deficiency Other vitamin B12 deficiency anemia documented in this encounter [facility] general Narrative - Reported* Type Description Date Medical History hyperlipidemia Medical History insulin resistance Medical History CMV Surgical History cyst removal pilonidal Surgical History D&C Hospitalization History [email or web address] Other [employer] for referral (narrative)* Diagnostic Procedure Only (Routine) - Pending Review Specialty Diagnoses / Procedures Referred By Nahid tran Referred To Contact XR IMAGING Diagnoses Steroid-induced osteoporosis Procedures DXA-FOREARM SKELETON DXA BONE DENSITY STUDY 1/>SITES APPENDICLR Lynne Perera MD [address] [place] [address] [place] [address] Referral ID Status Reason Start Date Expiration Date Visits Requested Visits Authorized [id number] Pending Review Auto-Generat ed Referral 02/04/2023 03/05/2024 1 1 [facility] for referral (narrative)* Consultation (Routine) - Authorized Specialty Diagnoses / Procedures Referred By Contac t Referred To Contact Cardiology Diagnoses Irregular heart rate Essential hypertension Autonomic dysfunction Obstructive sleep apnea syndrome Primary hypertension Procedures Follow Up In Cardiology Michelle Britton APRN-CNP [address] [facility] [address] [place] [address] Aurora Patel MD [address] [address] Referral ID Status Reason Start Date Expiration Date V isits Requested Visits Authorized [id number] Authorized 06/09/2023 06/08/2024 1 1 * Cardiovascular (Routine) - Pending Review Specialty Diagnoses / Procedures Referred By Contac t Referred To Contact Cardiology Diagnoses Irregular heart rate Procedures Holter Or Event Television Reporter Michelle Britton APRN-CNP [address] [facility] [address] [place] [address] Referral ID Status Reason Start Date Expiration Date V isits Requested Visits Authorized Pending Review 06/09/2023 06/08/2024 1 1 * CV Imaging (Routine) - Pending Review Specialty Diagnoses / Procedures Referred By Contac t Referred To Contact Cardiology Diagnoses Irregular heart rate Obstructive sleep apnea syndrome Procedures Transthoracic Echo (TTE) Complete [place] ECHO TTHRC R-T 2D W/WOM-MODE COMPL SPEC&COLR D Michelle Britton APRN-CNP [address] [facility] [address] [place] [address] Referral ID Status Reason Start Date Expiration Date Visits Requested Visits Authorized Pending Review Perform Procedure 06/09/2023 06/08/2024 1 1 * Cardiovascular (Routine) - Authorized Specialty Diagnoses / Procedures [facility] To Contact Diagnoses Irregular heart rate Procedures ECG 12 Lead Michelle Britton APRN-[facility] [address] [facility] [address] [place] [address] Referral ID Status Reason Start Date Expiration Date V isits Requested Visits Authorized [id number] Authorized 06/09/2023 06/08/[address] [facility] Work Phone: Summary Purpose Family History No Family History Records Found Relationship Condition Age at Onset Recorded Date/T michelle father Unknown Malignant neoplasm Unknown Advance Directives No Advanced Directives Records FoundDocuments on File Type Date Recorded Patient Jeeper Operator Expl anation ACP-Advance Directive ACP-Power of Exhibitions And Collections Manager Latest Code Status on File Code Status Date Activated Date Inactivated Comments Full Code 10/07/2020 8:32 AM Documents on File Type Date Recorded Patient Jeeper Operator Expl anation Advance Directive(s) 09/13/2015 8:36 AM Advance Directive Response Recorded Date/ Time Advance Directives No September 17, 019 2:40pm Reason for Referral Specialty Diagnoses / Procedures Referred By Contac t Referred To Contact Diagnoses Paroxysmal supraventricular tachycardia PAC (premature atrial contraction) Procedures ECG 12 Lead Lois Holm MD [address] [place] [address] [address], [address] [address] Referral ID Status Reason Start Date Expiration Date V isits Requested Visits Authorized [id number] Authorized 07/13/2023 07/12/2024 1 1 Specialty Diagnoses / Procedures Referred By Contac t Referred To Contact Cardiology Diagnoses Shortness of breath Paroxysmal supraventricular tachycardia PAC (premature atrial contraction) Procedures Follow Up In Cardiology Lois Holm MD [address] [facility] 2, [address] [address] Lois Holm MD [address] [facility] [address], [address] [address] Referral ID Status Reason Start Date Expiration Date V isits Requested Visits Authorized [id number] Authorized 07/13/2023 07/12/2024 1 1 Specialty Diagnoses / Procedures Referred By Contac t Referred To Contact Diagnoses Obesity, Class III, BMI 40-49.9 (morbid obesity) (HCC) Pre-diabetes Christie Phan MD [address] [place], [place] [id number] Referral ID Status Reason Start Date Expiration Date Visits Re quested Visits Authorized [id number] Closed 1 1 Specialty Diagnoses / Procedures Referred By Contac t Referred To Contact Diagnoses Wound healing, delayed Procedures CONSULT TO MEDICAL GENETICS - GENERAL OFFICE/OUTPATIENT [facility] 60-74 MINUTES MEDICAL GENETICS COUNSELING EACH 30 MINUTES Misty [place] MD [facility] [place] [phone] [facility] Medicine [place] [address] [place] [id number] Referral ID Status Reason Start Date Expiration Date Visits Requested Visits Authorized [id number] Authorized PCP Requested Referral Auto-Generate d Referral 2 03/10/2023 1 1 Specialty Diagnoses / Procedures Referred By Contac t Referred To Contact Neurology Diagnoses POTS (postural orthostatic tachycardia syndrome) Procedures CONSULT TO NEUROLOGY OFFICE/OUTPATIENT [facility] 60-74 MINUTES Christie Phan MD [address] [place] [address] Referral ID Status Reason Start Date Expiration Date Visits Requested Visits Authorized [id number] Authorized PCP Requested Referral 2 03/12/2023 1 1 Specialty Diagnoses / Procedures Referred By Contac t Referred To Contact Immunology Diagnoses Raised level of immunoglobulins Procedures CONSULT TO IMMUNOLOGY OFFICE/OUTPATIENT [facility] 60-74 MINUTES Christie Phan MD [address] [place] [address] Referral ID Status Reason Start Date Expiration Date V isits Requested Visits Authorized [id number] Closed PCP Requested Referral 03/09/2022 03/09/2023 1 1 Specialty Diagnoses / Procedures Referred By Contac t Referred To Contact [facility] Diagnoses Somnolence, daytime Snoring Procedures HOME SLEEP APNEA TEST (HSAT) SLEEP STD AIRFLOW HRT RATE&O2 SAT EFFORT UNATT Christie Phan MD [address] [place] [address] Neurological [place] [address] [place] [address] Referral ID Status Reason Start Date Expiration Date Visits Requested Visits Authorized [id number] Authorized Auto-Generat ed Referral 2 03/09/2023 1 1 Specialty Diagnoses / Procedures Referred By Contac t Referred To Contact Diagnoses Somnolence, daytime Chronic fatigue and malaise Obesity, unspecified classification, unspecified obesity type, unspecified whether serious comorbidity present Procedures CONSULT TO LIFESTYLE MEDICINE MD OFFICE/OUTPATIENT [facility] 60-74 MINUTES Jose Najera MD [address] [place] [address] [place] [address] Referral ID Status Reason Start Date Expiration Date V isits Requested Visits Authorized [id number] Closed PCP Requested Referral 03/04/2022 03/04/2023 1 1 Specialty Diagnoses / Procedures Referred By Contac t Referred To Contact Diagnoses Somnolence, daytime Snoring Procedures CONSULT TO SLEEP MEDICINE - ADULT OFFICE/OUTPATIENT [facility] 60-74 MINUTES Jose Najera MD [address] [place] [address] [place] [address] Referral ID Status Reason Start Date Expiration Date Visits Requested Visits Authorized [id number] Authorized PCP Requested Referral 2 03/04/2023 1 [...] section and content) DATE CREATED AUTHOR 09/20/2018 [facility] DATE CREATED AUTHOR AUTHOR'S ORGANIZ ATION 09/23/2018 [facility] DATE CREATED AUTHOR AUTHOR'S ORGANIZ ATION 12/10/2018 [facility] DATE CREATED AUTHOR AUTHOR'S ORGANIZ ATION 01/13/2019 [facility] DATE CREATED AUTHOR AUTHOR'S ORGANIZ ATION 06/28/2021 [facility] DATE CREATED AUTHOR AUTHOR'S ORGANIZ ATION 10/01/2022 [facility] DATE CREATED AUTHOR AUTHOR'S ORGANIZ ATION 07/14/2023 [facility] DATE CREATED AUTHOR AUTHOR'S ORGANIZ ATION 12/06/2023 [facility] DATE CREATED AUTHOR AUTHOR'S ORGANIZ ATION 12/09/2023 [facility] EPIC Reason for Visit (unrecogniz ed section and content) Status Reason Specialty Diagnoses / Procedures Referre d By Contact Referred To Contact [facility] Reason Comments Pain ongoing generalized pain. [...] HIGH MDM 60-74 MINUTES Jose Najera MD [address] [place] [address] [place] [address] Referral ID Status Reason Start Date Expiration Date V isits Requested Visits Authorized [id number] Closed PCP Requested Referral 03/04/2022 03/04/2023 1 1 Reason Comments High Total serum IgM Anemia Reason Comments Consult Specialty Diagnoses / Procedures Referred By Contac t Referred To Contact Immunology Diagnoses Raised level of immunoglobulins Procedures CONSULT TO IMMUNOLOGY OFFICE/OUTPATIENT NEW HIGH MDM 60-74 MINUTES Christie Phan MD [address] [address] Referral ID Status Reason Start Date Expiration Date V isits Requested Visits Authorized [id number] Closed PCP Requested Referral 03/09/2022 03/09/2023 1 1 Reason Comments Pneumovax Reason Comments Refill Request Reason Comments Appointment Cosmetic Surgeon - Other Reason Comments Future Appointment Scheduling [...] rate Procedures ECG 12 Lead Michelle Britton, SOLE MOLDER-CAR REPOSSESSOR [address] [facility] [address] [place] [address] Referral ID Status Reason Start Date Expiration Date V isits Requested Visits Authorized [id number] Authorized 06/09/2023 06/08/2024 1 1 Reason Comments New Patient Visit Leg Swelling, test r esults from [place] Specialty Diagnoses / Procedures Referred By Contac t Referred To Contact Diagnoses Paroxysmal supraventricular tachycardia PAC (premature atrial contraction) Procedures ECG 12 Lead Lois Holm MD [address] [facility] [address] [place] [address] Referral ID Status Reason Start Date Expiration Date V isits Requested Visits Authorized [id number] Authorized 07/13/2023 07/12/2024 1 1 Reason Onset Date Comments SPP Inflammatory Conditions - Medication Refill 07/13/2023 Benlysta Reason Onset Date Comments SPP Inflammatory Conditions - Medication Refill 08/12/2023 Benlysta Reason Onset Date Comments SPP Inflammatory Conditions - Medication Refill 09/13/2023 Benlysta Reason Comments SLE Reason Onset Date Comments SPP Inflammatory Conditions - Medication Refill 10/12/2023 Benlysta Reason Onset Date Comments Refill Request 11/11/2023 Reason Onset Date Comments SPP Inflammatory Conditions - Medication Refill 11/15/2023 Benlysta - NCA 09/2024 Ordered Prescriptions (unrec ognized section and content) [...] or drug abuse patient.[facility] the event this information is protected by the Federal Confidentiality of Alcohol and Drug Abuse Patient Records regulations: The Federal rules restrict any use of the information to criminally investigate or prosecute any alcohol or drug abuse patient.[facility] Center[facility] the event this information is protected by the Federal Confidentiality of Alcohol and Drug Abuse Patient Records regulations: The Federal rules restrict any use of the information to criminally investigate or prosecute any alcohol or drug abuse patient.[facility] Center[facility] the event this information is protected by the Federal Confidentiality of Alcohol and Drug Abuse Patient Records regulations: The Federal rules restrict any use of the information to criminally investigate or prosecute any alcohol or drug abuse patient.[facility] Center[facility] the event this information is protected by the Federal Confidentiality of Alcohol and Drug Abuse Patient Records regulations: The Federal rules restrict any use of the information to criminally investigate or prosecute any alcohol or drug abuse patient.[facility] Center[facility] the event this information is protected by the Federal Confidentiality of Alcohol and Drug Abuse Patient Records regulations: The Federal rules restrict any use of the information to criminally investigate or prosecute any alcohol or drug abuse patient.[facility] CenterIn the event this information is protected by the Federal Confidentiality of Alcohol and Drug Abuse Patient Records regulations: The Federal rules restrict any use of the information to criminally investigate or prosecute any alcohol or drug abuse patient.[facility] CenterIn the event this information is protected by the Federal Confidentiality of Alcohol and Drug Abuse Patient Records regulations: The Federal rules restrict any use of the information to criminally investigate or prosecute any alcohol or drug abuse patient.[facility] CenterIn the event this information is protected by the Federal Confidentiality of Alcohol and Drug Abuse Patient Records regulations: The Federal rules restrict any use of the information to criminally investigate or prosecute any alcohol or drug abuse patient.[facility] CenterIn the event this information is protected by the Federal Confidentiality of Alcohol and Drug Abuse Patient Records regulations: The Federal rules restrict any use of the information to criminally investigate or prosecute any alcohol or drug abuse patient.[facility] CenterIn the event this information is protected by the Federal Confidentiality of Alcohol and Drug Abuse Patient Records regulations: The Federal rules restrict any use of the information to criminally investigate or prosecute any alcohol or drug abuse patient.[facility] CenterIn the event this information is protected by the Federal Confidentiality of Alcohol and Drug Abuse Patient Records regulations: The Federal rules restrict any use of the information to criminally investigate or prosecute any alcohol or drug abuse patient.[facility] CenterIn the event this information is protected by the Federal Confidentiality of Alcohol and Drug Abuse Patient Records regulations: The Federal rules restrict any use of the information to criminally investigate or prosecute any alcohol or drug abuse patient.[facility] CenterIn the event this information is protected by the Federal Confidentiality of Alcohol and Drug Abuse Patient Records regulations: The Federal rules restrict any use of the information to criminally investigate or prosecute any alcohol or drug abuse patient.[facility] CenterIn the event this information is protected by the Federal Confidentiality of Alcohol and Drug Abuse Patient Records regulations: The Federal rules restrict any use of the information to criminally investigate or prosecute any alcohol or drug abuse patient.[facility] CenterIn the event this information is protected by the Federal Confidentiality of Alcohol and Drug Abuse Patient Records regulations: The Federal rules restrict any use of the information to criminally investigate or prosecute any alcohol or drug abuse patient.[facility] CenterIn the event this information is protected by the Federal Confidentiality of Alcohol and Drug Abuse Patient Records regulations: The Federal rules restrict any use of the information to criminally investigate or prosecute any alcohol or drug abuse patient.[facility] CenterIn the event this information is protected by the Federal Confidentiality of Alcohol and Drug Abuse Patient Records regulations: The Federal rules restrict any use of the information to criminally investigate or prosecute any alcohol or drug abuse patient.[facility] CenterIn the event this information is protected by the Federal Confidentiality of Alcohol and Drug Abuse Patient Records regulations: The Federal rules restrict any use of the information to criminally investigate or prosecute any alcohol or drug abuse patient.[facility] CenterIn the event this information is protected by the Federal Confidentiality of Alcohol and Drug Abuse Patient Records regulations: The Federal rules restrict any use of the information to criminally investigate or prosecute any alcohol or drug abuse patient.[facility] CenterIn the event this information is protected by the Federal Confidentiality of Alcohol and Drug Abuse Patient Records regulations: The Federal rules restrict any use of the information to criminally investigate or prosecute any alcohol or drug abuse patient.[facility] CenterIn the event this information is protected by the Federal Confidentiality of Alcohol and Drug Abuse Patient Records regulations: The Federal rules restrict any use of the information to criminally investigate or prosecute any alcohol or drug abuse patient.[facility] CenterIn the event this information is protected by the Federal Confidentiality of Alcohol and Drug Abuse Patient Records regulations: The Federal rules restrict any use of the information to criminally investigate or prosecute any alcohol or drug abuse patient.[facility] CenterIn the event this information is protected by the Federal Confidentiality of Alcohol and Drug Abuse Patient Records regulations: The Federal rules restrict any use of the information to criminally investigate or prosecute any alcohol or drug abuse patient.[facility] CenterIn the event this information is protected by the Federal Confidentiality of Alcohol and Drug Abuse Patient Records regulations: The Federal rules restrict any use of the information to criminally investigate or prosecute any alcohol or drug abuse patient.[facility] CenterIn the event this information is protected by the Federal Confidentiality of Alcohol and Drug Abuse Patient Records regulations: The Federal rules restrict any use of the information to criminally investigate or prosecute any alcohol or drug abuse patient.[facility] CenterIn the event this information is protected by the Federal Confidentiality of Alcohol and Drug Abuse Patient Records regulations: The Federal rules restrict any use of the information to criminally investigate or prosecute any alcohol or drug abuse patient.[facility] CenterIn the event this information is protected by the Federal Confidentiality of Alcohol and Drug Abuse Patient Records regulations: The Federal rules restrict any use of the information to criminally investigate or prosecute any alcohol or drug abuse patient.[facility] CenterIn the event this information is protected by the Federal Confidentiality of Alcohol and Drug Abuse Patient Records regulations: The Federal rules restrict any use of the information to criminally investigate or prosecute any alcohol or drug abuse patient.[facility] CenterIn the event this information is protected by the Federal Confidentiality of Alcohol and Drug Abuse Patient Records regulations: The Federal rules restrict any use of the information to criminally investigate or prosecute any alcohol or drug abuse patient.[facility] CenterIn the event this information is protected by the Federal Confidentiality of Alcohol and Drug Abuse Patient Records regulations: The Federal rules restrict any use of the information to criminally investigate or prosecute any alcohol or drug abuse patient.[facility] CenterIn the event this information is protected by the Federal Confidentiality of Alcohol and Drug Abuse Patient Records regulations: The Federal rules restrict any use of the information to criminally investigate or prosecute any alcohol or drug abuse patient.[facility] CenterIn the event this information is protected by the Federal Confidentiality of Alcohol and Drug Abuse Patient Records regulations: The Federal rules restrict any use of the information to criminally investigate or prosecute any alcohol or drug abuse patient.[facility] CenterIn the event this information is protected by the Federal Confidentiality of Alcohol and Drug Abuse Patient Records regulations: The Federal rules restrict any use of the information to criminally investigate or prosecute any alcohol or drug abuse patient.[facility] CenterIn the event this information is protected by the Federal Confidentiality of Alcohol and Drug Abuse Patient Records regulations: The Federal rules restrict any use of the information to criminally investigate or prosecute any alcohol or drug abuse patient.[facility] CenterIn the event this information is protected by the Federal Confidentiality of Alcohol and Drug Abuse Patient Records regulations: The Federal rules restrict any use of the information to criminally investigate or prosecute any alcohol or drug abuse patient.[facility] CenterIn the event this information is protected by the Federal Confidentiality of Alcohol and Drug Abuse Patient Records regulations: The Federal rules restrict any use of the information to criminally investigate or prosecute any alcohol or drug abuse patient.[facility] CenterIn the event this information is protected by the Federal Confidentiality of Alcohol and Drug Abuse Patient Records regulations: The Federal rules restrict any use of the information to criminally investigate or prosecute any alcohol or drug abuse patient.[facility] CenterIn the event this information is protected by the Federal Confidentiality of Alcohol and Drug Abuse Patient Records regulations: The Federal rules restrict any use of the information to criminally investigate or prosecute any alcohol or drug abuse patient.[facility] CenterIn the event this information is protected by the Federal Confidentiality of Alcohol and Drug Abuse Patient Records regulations: The Federal rules restrict any use of the information to criminally investigate or prosecute any alcohol or drug abuse patient.[facility] CenterIn the event this information is protected by the Federal Confidentiality of Alcohol and Drug Abuse Patient Records regulations: The Federal rules restrict any use of the information to criminally investigate or prosecute any alcohol or drug abuse patient.[facility] CenterIn the event this information is protected by the Federal Confidentiality of Alcohol and Drug Abuse Patient Records regulations: The Federal rules restrict any use of the information to criminally investigate or prosecute any alcohol or drug abuse patient.[facility] CenterIn the event this information is protected by the Federal Confidentiality of Alcohol and Drug Abuse Patient Records regulations: The Federal rules restrict any use of the information to criminally investigate or prosecute any alcohol or drug abuse patient.[facility] CenterIn the event this information is protected by the Federal Confidentiality of Alcohol and Drug Abuse Patient Records regulations: The Federal rules restrict any use of the information to criminally investigate or prosecute any alcohol or drug abuse patient.[facility] CenterIn the event this information is protected by the Federal Confidentiality of Alcohol and Drug Abuse Patient Records regulations: The Federal rules restrict any use of the information to criminally investigate or prosecute any alcohol or drug abuse patient.[facility] CenterIn the event this information is protected by the Federal Confidentiality of Alcohol and Drug Abuse Patient Records regulations: The Federal rules restrict any use of the information to criminally investigate or prosecute any alcohol or drug abuse patient.[facility] CenterIn the event this information is protected by the Federal Confidentiality of Alcohol and Drug Abuse Patient Records regulations: The Federal rules restrict any use of the information to criminally investigate or prosecute any alcohol or drug abuse patient.[facility] CenterIn the event this information is protected by the Federal Confidentiality of Alcohol and Drug Abuse Patient Records regulations: The Federal rules restrict any use of the information to criminally investigate or prosecute any alcohol or drug abuse patient.[facility] CenterIn the event this information is protected by the Federal Confidentiality of Alcohol and Drug Abuse Patient Records regulations: The Federal rules restrict any use of the information to criminally investigate or prosecute any alcohol or drug abuse patient.[facility] CenterIn the event this information is protected by the Federal Confidentiality of Alcohol and Drug Abuse Patient Records regulations: The Federal rules restrict any use of the information to criminally investigate or prosecute any alcohol or drug abuse patient.[facility] CenterIn the event this information is protected by the Federal Confidentiality of Alcohol and Drug Abuse Patient Records regulations: The Federal rules restrict any use of the information to criminally investigate or prosecute any alcohol or drug abuse patient.[facility] CenterIn the event this information is protected by the Federal Confidentiality of Alcohol and Drug Abuse Patient Records regulations: The Federal rules restrict any use of the information to criminally investigate or prosecute any alcohol or drug abuse patient.[facility] CenterIn the event this information is protected by the Federal Confidentiality of Alcohol and Drug Abuse Patient Records regulations: The Federal rules restrict any use of the information to criminally investigate or prosecute any alcohol or drug abuse patient.[facility] CenterIn the event this information is protected by the Federal Confidentiality of Alcohol and Drug Abuse Patient Records regulations: The Federal rules restrict any use of the information to criminally investigate or prosecute any alcohol or drug abuse patient.[facility] CenterIn the event this information is protected by the Federal Confidentiality of Alcohol and Drug Abuse Patient Records regulations: The Federal rules restrict any use of the information to criminally investigate or prosecute any alcohol or drug abuse patient.[facility] CenterIn the event this information is protected by the Federal Confidentiality of Alcohol and Drug Abuse Patient Records regulations: The Federal rules restrict any use of the information to criminally investigate or prosecute any alcohol or drug abuse patient.[facility] CenterIn the event this information is protected by the Federal Confidentiality of Alcohol and Drug Abuse Patient Records regulations: The Federal rules restrict any use of the information to criminally investigate or prosecute any alcohol or drug abuse patient.[facility] CenterIn the event this information is protected by the Federal Confidentiality of Alcohol and Drug Abuse Patient Records regulations: The Federal rules restrict any use of the information to criminally investigate or prosecute any alcohol or drug abuse patient.[facility] CenterIn the event this information is protected by the Federal Confidentiality of Alcohol and Drug Abuse Patient Records regulations: The Federal rules restrict any use of the information to criminally investigate or prosecute any alcohol or drug abuse patient.[facility] CenterIn the event this information is protected by the Federal Confidentiality of Alcohol and Drug Abuse Patient Records regulations: The Federal rules restrict any use of the information to criminally investigate or prosecute any alcohol or drug abuse patient.[facility] CenterIn the event this information is protected by the Federal Confidentiality of Alcohol and Drug Abuse Patient Records regulations: The Federal rules restrict any use of the information to criminally investigate or prosecute any alcohol or drug abuse patient.[facility] CenterIn the event this information is protected by the Federal Confidentiality of Alcohol and Drug Abuse Patient Records regulations: The Federal rules restrict any use of the information to criminally investigate or prosecute any alcohol or drug abuse patient.[facility] CenterIn the event this information is protected by the Federal Confidentiality of Alcohol and Drug Abuse Patient Records regulations: The Federal rules restrict any use of the information to criminally investigate or prosecute any alcohol or drug abuse patient.[facility] CenterIn the event this information is protected by the Federal Confidentiality of Alcohol and Drug Abuse Patient Records regulations: The Federal rules restrict any use of the information to criminally investigate or prosecute any alcohol or drug abuse patient.[facility] CenterIn the event this information is protected by the Federal Confidentiality of Alcohol and Drug Abuse Patient Records regulations: The Federal rules restrict any use of the information to criminally investigate or prosecute any alcohol or drug abuse patient.[facility] CenterIn the event this information is protected by the Federal Confidentiality of Alcohol and Drug Abuse Patient Records regulations: The Federal rules restrict any use of the information to criminally investigate or prosecute any alcohol or drug abuse patient.[facility] CenterIn the event this information is protected by the Federal Confidentiality of Alcohol and Drug Abuse Patient Records regulations: The Federal rules restrict any use of the information to criminally investigate or prosecute any alcohol or drug abuse patient.[facility] CenterIn the event this information is protected by the Federal Confidentiality of Alcohol and Drug Abuse Patient Records regulations: The Federal rules restrict any use of the information to criminally investigate or prosecute any alcohol or drug abuse patient.[facility] CenterIn the event this information is protected by the Federal Confidentiality of Alcohol and Drug Abuse Patient Records regulations: The Federal rules restrict any use of the information to criminally investigate or prosecute any alcohol or drug abuse patient.[facility] CenterIn the event this information is protected by the Federal Confidentiality of Alcohol and Drug Abuse Patient Records regulations: The Federal rules restrict any use of the information to criminally investigate or prosecute any alcohol or drug abuse patient.[facility] CenterIn the event this information is protected by the Federal Confidentiality of Alcohol and Drug Abuse Patient Records regulations: The Federal rules restrict any use of the information to criminally investigate or prosecute any alcohol or drug abuse patient.[facility] CenterIn the event this information is protected by the Federal Confidentiality of Alcohol and Drug Abuse Patient Records regulations: The Federal rules restrict any use of the information to criminally investigate or prosecute any alcohol or drug abuse patient.[facility] CenterIn the event this information is protected by the Federal Confidentiality of Alcohol and Drug Abuse Patient Records regulations: The Federal rules restrict any use of the information to criminally investigate or prosecute any alcohol or drug abuse patient.[facility] CenterIn the event this information is protected by the Federal Confidentiality of Alcohol and Drug Abuse Patient Records regulations: The Federal rules restrict any use of the information to criminally investigate or prosecute any alcohol or drug abuse patient.[facility] CenterIn the event this information is protected by the Federal Confidentiality of Alcohol and Drug Abuse Patient Records regulations: The Federal rules restrict any use of the information to criminally investigate or prosecute any alcohol or drug abuse patient.[facility] CenterIn the event this information is protected by the Federal Confidentiality of Alcohol and Drug Abuse Patient Records regulations: The Federal rules restrict any use of the information to criminally investigate or prosecute any alcohol or drug abuse patient.[facility] CenterIn the event this information is protected by the Federal Confidentiality of Alcohol and Drug Abuse Patient Records regulations: The Federal rules restrict any use of the information to criminally investigate or prosecute any alcohol or drug abuse patient.[facility] CenterIn the event this information is protected by the Federal Confidentiality of Alcohol and Drug Abuse Patient Records regulations: The Federal rules restrict any use of the information to criminally investigate or prosecute any alcohol or drug abuse patient.[facility] CenterIn the event this information is protected by the Federal Confidentiality of Alcohol and Drug Abuse Patient Records regulations: The Federal rules restrict any use of the information to criminally investigate or prosecute any alcohol or drug abuse patient.[facility] CenterIn the event this information is protected by the Federal Confidentiality of Alcohol and Drug Abuse Patient Records regulations: The Federal rules restrict any use of the information to criminally investigate or prosecute any alcohol or drug abuse patient.[facility] CenterIn the event this information is protected by the Federal Confidentiality of Alcohol and Drug Abuse Patient Records regulations: The Federal rules restrict any use of the information to criminally investigate or prosecute any alcohol or drug abuse patient.[facility] CenterIn the event this information is protected by the Federal Confidentiality of Alcohol and Drug Abuse Patient Records regulations: The Federal rules restrict any use of the information to criminally investigate or prosecute any alcohol or drug abuse patient.[facility] CenterIn the event this information is protected by the Federal Confidentiality of Alcohol and Drug Abuse Patient Records regulations: The Federal rules restrict any use of the information to criminally investigate or prosecute any alcohol or drug abuse patient.[facility] Care Teams (unrecognized sec tion and content) Team Status: Active Member Role Status Dates Lui Enrique Salomon , MD Primary Care Provider Active Team Status: Inactive Member Role Status Mark Salomon MD Primary Care Provider Active Start: September 22, 2023 End: September 22, 2023 Ketty Mccall MD Attending Provider Active Start: September 22, 2023 End: September 22, 2023 Team Status: Inactive Member Role Status Mark Salomon MD Primary Care Provider Active Start: October 20, 2023 End: October 20, 2023 Mirela Kelsey MD Attending Provider Active Sta rt: October 20, 2023 End: October 20, 2023 Team Status: Inactive Member Role Status Mark Salomon MD Primary Care Provider Active Start: November 04, 2023 End: November 04, 2023 Mirela Kelsey MD Attending Provider Active Sta rt: November 04, 2023 End: November 04, 2023 Software Deployment Engineer Relationship Specialty Start Date End Date Gay Enciso, SOLE [email or web address]POSSESS[employer] [address] [place] [address] PCP - General Family Practice 10/24/21 Software Deployment Engineer Relationship Specialty Start Date End Date Gay Enciso, SOLE [email or web address].[email or web address] REPOSSESSOR [address] [place] [address] PCP - General Family Medicine 10/24/21 Madelaine Ferris MD [address] [place] [address] Referring Family Medicine 02/12/22 Software Deployment Engineer Relationship Specialty Start Date End Date Madelaine Ferris MD [address] [place] [address] PCP - General Family Medicine 02/27/22 Madelaine Ferris MD [address] [place] [address] Referring Family Medicine 02/12/22 Software Deployment Engineer Relationship Specialty Start Date End Date Madelaine Ferris MD [address] [place] [address] PCP - General Family Medicine 02/27/22 Madelaine Ferris MD [address] [place] [facility] [place] [address] Referring Family Medicine 02/12/22 Software Deployment Engineer Relationship Specialty Start Date End Date Madelaine Ferris MD [address] [place] [facility] [place] [address] PCP - General Family Medicine 02/27/22 Madelaine Ferris MD [address] [place] [facility] [place] [address] Referring Family Medicine 02/12/22 Software Deployment Engineer Relationship Specialty Start Date End Date Madelaine Ferris MD [address] [place] [facility] [place] [address] PCP - General Family Medicine 02/27/22 Madelaine Ferris MD [address] [place] [facility] [place] [address] Referring Family Medicine 02/12/22 Software Deployment Engineer Relationship Specialty Start Date End Date Madelaine Ferris MD [address] [place] [facility] [place] [address] PCP - General Family Medicine 02/27/22 Madelaine Ferris MD [address] [place] [facility] [place] [address] Referring Family Medicine 02/12/22 Software Deployment Engineer Relationship Specialty Start Date End Date Madelaine Ferris MD [address] [place] [facility] [place] [address] PCP - General Family Medicine 02/27/22 Madelaine Ferris MD [address] [place] [facility] [place] [address] Referring Family Medicine 02/12/22 Software Deployment Engineer Relationship Specialty Start Date End Date Madelaine Ferris MD [address] [place] [facility] [place] [address] PCP - General Family Medicine 02/27/22 Madelaine Ferris MD [address] [place] [facility] [place] [address] Referring Family Medicine 02/12/22 Software Deployment Engineer Relationship Specialty Start Date End Date Madelaine Ferris MD [address] [place] [place] [address] PCP - General Family Medicine 02/27/22 Madelaine Ferris MD [address] [place] [facility] [place] [address] Referring Family Medicine 02/12/22 Software Deployment Engineer Relationship Specialty Start Date End Date Madelaine Ferris MD [address] [place] [facility] [place] [address] PCP - General Family Medicine 02/27/22 Madelaine Ferris MD [address] [place] [place] [place] [address] Referring Family Medicine 02/12/22 Software Deployment Engineer Relationship Specialty Start Date End Date Madelaine Ferris MD [address] [place] [facility] [place] [address] PCP - General Family Medicine 02/27/22 Madelaine Ferris MD [address] [place] [place] [address] Referring Family Medicine 02/12/22 Software Deployment Engineer Relationship Specialty Start Date End Date Madelaine Ferris MD [address] [place] [place] [address] PCP - General Family Medicine 02/27/22 Madelaine Ferris MD [address] [place] [place] [place] [address] Referring Family Medicine 02/12/22 Software Deployment Engineer Relationship Specialty Start Date End Date Madelaine Ferris MD [address] [place] [place] [facility] [place] [address] PCP - General Family Medicine 02/27/22 Madelaine Ferris MD [address] [place] [place] [place] [address] Referring Family Medicine 02/12/22 Software Deployment Engineer Relationship Specialty Start Date End Date Madelaine Ferris MD [address] [place] [place] [place] [address] PCP - General Family Medicine 02/27/22 Madelaine Ferris MD [address] [place] [place] [facility] [place] [address] Referring Family Medicine 02/12/22 Software Deployment Engineer Relationship Specialty Start Date End Date Madelaine Ferris MD [address] [place] [place] [place] [address] PCP - General Family Medicine 02/27/22 Madelaine Ferris MD [address] [place] [facility] [address] Referring Family Medicine 02/12/22 Software Deployment Engineer Relationship Specialty Start Date End Date Madelaine Ferris MD [address] [place] [place] [facility] [place] [address] PCP - General Family Medicine 02/27/22 Madelaine Ferris MD [address] [place] [place] [facility] [place] [address] Referring Family Medicine 02/12/22 Software Deployment Engineer Relationship Specialty Start Date End Date Madelaine Ferris MD [address] [place] [place] [facility] [place] [address] PCP - General Family Medicine 02/27/22 Madelaine Ferris MD [address] [place] [address] Referring Family Medicine 02/12/22 Software Deployment Engineer Relationship Specialty Start Date End Date Madelaine Ferris MD [address] [place] [place] [facility] [place] [address] PCP - General Family Medicine 02/27/22 Madelaine Ferris MD [address] [place] [place] [facility] [place] [address] Referring Family Medicine 02/12/22 Software Deployment Engineer Relationship Specialty Start Date End Date Madelaine Ferris MD [address] [place] [place] [facility] [place] [address] PCP - General Family Medicine 02/27/22 Madelaine Ferris MD [address] [place] [place] [place] [address] Referring Family Medicine 02/12/22 Software Deployment Engineer Relationship Specialty Start Date End Date Madelaine Ferris MD [address] [place] [place] [facility] [place] [address] PCP - General Family Medicine 02/27/22 Madelaine Ferris MD [address] [place] [place] [facility] [place] [address] Referring Family Medicine 02/12/22 Software Deployment Engineer Relationship Specialty Start Date End Date Madelaine Ferris MD [address] [place] [place] [facility] [place] [address] PCP - General Family Medicine 02/27/22 Madelaine Ferris MD [address] [place] [place] [address] Referring Family Medicine 02/12/22 Software Deployment Engineer Relationship Specialty Start Date End Date Madelaine Ferris MD [address] [place] [address] PCP - General Family Medicine 02/27/22 Madelaine Ferris MD [address] [place] [address] Referring Family Medicine 02/12/22 Software Deployment Engineer Relationship Specialty Start Date End Date Madelaine Ferris MD PCP - General Family Medicine 02/27/22 Madelaine Ferris MD Referring Family Medicine 02/12/22 Software Deployment Engineer Relationship Specialty Start Date End Date Madelaine Ferris MD PCP - General Family Medicine 02/27/22 Madelaine Ferris MD Referring Family Medicine 02/12/22 Software Deployment Engineer Relationship Specialty Start Date End Date Madelaine Ferris MD PCP - General Family Medicine 02/27/22 Madelaine Ferris MD Referring Family Medicine 02/12/22 Software Deployment Engineer Relationship Specialty Start Date End Date Madelaine Ferris MD PCP - General Family Medicine 02/27/22 Madelaine Ferris MD Referring Family Medicine 02/12/22 Software Deployment Engineer Relationship Specialty Start Date End Date Madelaine Ferris MD PCP - General Family Medicine 02/27/22 Madelaine Ferris MD Referring Family Medicine 02/12/22 Software Deployment Engineer Relationship Specialty Start Date End Date Madelaine Ferris MD PCP - General Family Medicine 02/27/22 Madelaine Ferris MD Referring Family Medicine 02/12/22 Software Deployment Engineer Relationship Specialty Start Date End Date Madelaine Ferris MD PCP - General Family Medicine 02/27/22 Madelaine Ferris MD Referring Family Medicine 02/12/22 Software Deployment Engineer Relationship Specialty Start Date End Date Madelaine Ferris MD PCP - General Family Medicine 02/27/22 Madelaine Ferris MD Referring Family Medicine 02/12/22 Software Deployment Engineer Relationship Specialty Start Date End Date Madelaine Ferris MD PCP - General Family Medicine 02/27/22 Madelaine Ferris MD Referring Family Medicine 02/12/22 Software Deployment Engineer Relationship Specialty Start Date End Date Madelaine Ferris MD PCP - General Family Medicine 02/27/22 Madelaine Ferris MD Referring Family Medicine 02/12/22 Software Deployment Engineer Relationship Specialty Start Date End Date Madelaine Ferris MD PCP - General Family Medicine 02/27/22 Madelaine Ferris MD Referring Family Medicine 02/12/22 Software Deployment Engineer Relationship Specialty Start Date End Date Madelaine Ferris MD PCP - General Family Medicine 02/27/22 Madelaine Ferris MD Referring Family Medicine 02/12/22 Software Deployment Engineer Relationship Specialty Start Date End Date Madelaine Ferris MD PCP - General Family Medicine 02/27/22 Madelaine Ferris MD Referring Family Medicine 02/12/22 Software Deployment Engineer Relationship Specialty Start Date End Date Madelaine Ferris MD PCP - General Family Medicine 02/27/22 Madelaine Ferris MD Referring Family Medicine 02/12/22 Software Deployment Engineer Relationship Specialty Start Date End Date Madelaine Ferris MD PCP - General Family Medicine 02/27/22 Madelaine Ferris MD Referring Family Medicine 02/12/22 Software Deployment Engineer Relationship Specialty Start Date End Date Madelaine Ferris MD PCP - General Family Medicine 02/27/22 Madelaine Ferris MD Referring Family Medicine 02/12/22 Software Deployment Engineer Relationship Specialty Start Date End Date Madelaine Ferris MD PCP - General Family Medicine 02/27/22 Madelaine Ferris MD Referring Family Medicine 02/12/22 Software Deployment Engineer Relationship Specialty Start Date End Date Madelaine Ferris MD PCP - General Family Medicine 02/27/22 Madelaine Ferris MD Referring Family Medicine 02/12/22 Software Deployment Engineer Relationship Specialty Start Date End Date Madelaine Ferris MD PCP - General Family Medicine 02/27/22 Madelaine Ferris MD Referring Family Medicine 02/12/22 Software Deployment 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 Relationship Specialty Start Date End Date Madelaine Ferris MD PCP - General Family Medicine 02/27/22 Madelaine Ferris MD Referring Family Medicine 02/12/22 Software Deployment Engineer Relationship Specialty Start Date End Date Madelaine Ferris MD PCP - General Family Medicine 02/27/22 Madelaine Ferris MD Referring Family Medicine 02/12/22 Software Deployment Engineer Relationship Specialty Start Date End Date Madelaine Ferris MD PCP - General Family Medicine 02/27/22 Madelaine Ferris MD Referring Family Medicine 02/12/22 Software Deployment Engineer Relationship Specialty Start Date End Date Madelaine Ferris MD PCP - General Family Medicine 02/27/22 Madelaine Ferris MD Referring Family Medicine 02/12/22 Software Deployment Engineer Relationship Specialty Start Date End Date Madelaine Ferris MD PCP - General Family Medicine 02/27/22 Madelaine Ferris MD Referring Family Medicine 02/12/22 Software Deployment Engineer Relationship Specialty Start Date End Date Madelaine Ferris MD PCP - General Family Medicine 02/27/22 Madelaine Ferris MD Referring Family Medicine 02/12/22 Software Deployment Engineer Relationship Specialty Start Date End Date Madelaine Ferris MD PCP - General Family Medicine 02/27/22 Madelaine Ferris MD Referring Family Medicine 02/12/22 Software Deployment Engineer Relationship Specialty Start Date End Date Charles Mitchell DO [address] [place] [id number] PCP - General 10/22/18 Michelle Britton APRN-CAR REPOSSESSOR [address] [place] [id number] Nurse Practitioner Cardiology 06/08/23 Software Deployment Engineer Relationship Specialty Start Date End Date Gay Enciso APRN-CAR REPOSSESSOR [address] [place] [address] PCP - General 07/13/23 Michelle Britton, MAURILIO-CAR REPOSSESSOR [address] [facility] [address] [place] [address] Nurse Practitioner Cardiology 06/08/23 Aurora Patel MD [address] [facility] [address] [place] [address] Consulting Physician Cardiology 06/23/23 Software Deployment Engineer Relationship Specialty Start Date End Date Madelaine Ferris MD PCP - General Family Medicine 02/27/22 Madelaine Ferris MD Referring Family Medicine 02/12/22 Software Deployment Engineer Relationship Specialty Start Date End Date Madelaine Ferris MD PCP - General Family Medicine 02/27/22 Madelaine Ferris MD Referring Family Medicine 02/12/22 Team Status: Active Member Role Status Dates Lui Salomon MD Primary Care Provider Active Start: July 28, 2023 Virgil Green MD Attending Provider Active S tart: July 28, 2023 Software Deployment Engineer Relationship Specialty Start Date End Date Madelaine [...] BE BASED ON THE PRIMARY CLINICAL RECORDS. [employer] [facility]. provides no warranty or guarantee of the accuracy or completeness of information in this document.
== END 2023-12-11 09:49 | disposition home or self-care (01) ==
LOC: CT 09:49
PROVIDERS: PCP Nurse Practitioner Family; Visit Provider Family Medicine
DX: I26.99 Other pulmonary embolism without acute cor pulmonale (principal)
CPT/HCPCS: 71275; Q9967

== ENCOUNTER 2023-12-27 14:35 | Outpatient (REF) | payer OTHER, SELFPAY ==
[2023-12-27 15:47] LABS: C. Difficile PCR NEGATIVE (NEGATIVE)
== END 2023-12-27 14:36 | disposition home or self-care (01) ==
LOC: LAB 14:35
PROVIDERS: PCP Nurse Practitioner Family; Visit Provider Nurse Practitioner Family
DX: R19.7 Diarrhea, unspecified (principal)
CPT/HCPCS: 87493

== ENCOUNTER 2024-01-03 16:30 | Outpatient (OUT) | payer OTHER, SELFPAY ==
[2024-01-03 16:43] LABS: Basophils Absolute Auto 0.1 10^3/uL (0.0-0.1); Basophils Percent Auto 0.4 % (0.2-2.0); Eosinophils Absolute Auto 0.1 10^3/uL (0.0-0.7); Eosinophils Percent Auto 0.7 % (0.9-7.0); Hematocrit 39.3 % (36.0-48.0); Immature Granulocytes Pct Auto 0.7 % (0.0-0.5); Lymphocytes Absolute Auto 2.7 10^3/uL (1.2-3.8); Lymphocytes Percent Auto 19.7 % (20.5-60.0); Mean Corpuscular HGB Conc 33.1 g/dL (29.9-35.2); Mean Corpuscular Hemoglobin 29.9 pg (26.7-34.0); Mean Corpuscular Volume 90.3 fL (81.0-99.0); Mean Platelet Volume 9.9 fL (9.5-13.5); Monocytes Absolute Auto 0.9 10^3/uL (0.3-0.8); Monocytes Percent Auto 6.8 % (1.7-12.0); Neutrophils Absolute Auto 9.7 10^3/uL (1.4-6.5); Neutrophils Percent Auto 71.7 % (43.0-75.0); Platelet Count 283 10^3/uL (150-450); Red Blood Count 4.35 10^6/uL (4.20-5.40); Red Cell Distribution Width 14.6 % (11.0-15.0); White Blood Count 13.6 10^3/uL (4.0-11.0)
[2024-01-03 17:06] LABS: Alanine Aminotransferase 37 U/L (14-59); Albumin Globulin Ratio 0.9; Albumin Level 3.3 g/dL (3.4-5.0); Alkaline Phosphatase 74 U/L (46-116); Anion Gap 14.1; Aspartate Amino Transferase 9 U/L (15-37); BUN Creatinine Ratio 15.8; Bilirubin Total 0.2 mg/dL (0.2-1.0); Calcium 8.8 mg/dL (8.5-10.1); Carbon Dioxide 24.8 mmol/L (21.0-32.0); Chloride 101 mmol/L (98-107); Estimated GFR (African America >60 (>=60); Estimated GFR (Non-African Ame >60 (>=60); Globulin 3.6 g/dL; Glucose 138 mg/dL (74-106); Potassium 3.9 mmol/L (3.5-5.1); Sodium 136 mmol/L (136-145); Total Protein 6.9 g/dL (6.4-8.2)
== END 2024-01-03 16:31 | disposition home or self-care (01) ==
LOC: LAB 16:30
PROVIDERS: PCP Nurse Practitioner Family; Visit Provider Nurse Practitioner Family
DX: D72.829 Elevated white blood cell count, unspecified (principal)
CPT/HCPCS: 36415; 80053; 85025

== ENCOUNTER 2024-01-11 16:12 | Outpatient (OUT) | payer OTHER, SELFPAY ==
[2024-01-11 16:24] LABS: Basophils Absolute Auto 0.1 10^3/uL (0.0-0.1); Basophils Percent Auto 0.4 % (0.2-2.0); Eosinophils Percent Auto 0.2 % (0.9-7.0); Hematocrit 41.2 % (36.0-48.0); Hemoglobin 13.4 g/dL (12.0-16.0); Immature Granulocytes Abs Auto 0.07 10^3/uL (0.00-0.03); Immature Granulocytes Pct Auto 0.6 % (0.0-0.5); Lymphocytes Percent Auto 16.2 % (20.5-60.0); Mean Corpuscular HGB Conc 32.5 g/dL (29.9-35.2); Mean Corpuscular Hemoglobin 29.9 pg (26.7-34.0); Mean Platelet Volume 9.8 fL (9.5-13.5); Monocytes Absolute Auto 0.7 10^3/uL (0.3-0.8); Monocytes Percent Auto 5.7 % (1.7-12.0); Neutrophils Absolute Auto 9.2 10^3/uL (1.4-6.5); Neutrophils Percent Auto 76.9 % (43.0-75.0); Platelet Count 273 10^3/uL (150-450); Red Blood Count 4.48 10^6/uL (4.20-5.40); Red Cell Distribution Width 14.9 % (11.0-15.0)
== END 2024-01-11 16:13 | disposition home or self-care (01) ==
LOC: LAB 16:13
PROVIDERS: PCP Nurse Practitioner Family; Visit Provider Nurse Practitioner Family
DX: D72.829 Elevated white blood cell count, unspecified (principal)
CPT/HCPCS: 36415; 85025

== ENCOUNTER 2024-02-07 16:33 | Outpatient (OUT) | payer OTHER, SELFPAY | END 2024-02-07 16:34 | disposition home or self-care (01) | LOC: LAB 16:33 | PROVIDERS: PCP Nurse Practitioner Family | DX: A49.8 Other bacterial infections of unspecified site (principal) | CPT/HCPCS: 36415; 87040 ==

== ENCOUNTER 2024-02-11 15:42 | Outpatient (OUT) | payer OTHER, SELFPAY ==
--- NOTE | 2024-02-11 15:47 | US_ITS ---
[facility] [id number] Patient Name: JONES HALEY MRN: [id number] date: 1980 Sex: F Assigned Patient Location: Current Patient Location: Accession/Order Number: [id number] Exam Date: 02/11/2024 16:20 Report Date: 02/12/2024 08:38 At the request of: SAMSON ENCISO Procedure: US venous doppler LE BI CLINICAL DATA: Leg pain. PROCEDURE: Bilateral lower extremity venous duplex ultrasound TECHNIQUE: Lei-scale, color flow, and waveform spectral analysis was performed of the bilateral lower extremities. FINDINGS: The bilateral common femoral, profunda femoral, femoral, and popliteal veins were compressible. The saphenous veins were compressible. No venous thrombosis was seen. The veins fill with color Doppler. Augmentation was normal. US/US venous doppler LE BI IMPRESSION: 1. No acute lower extremity deep venous thrombosis. 2. No superficial venous thrombosis. Electronically authenticated by: Mikie FELIX Date: 02/12/2024 08:38
== END 2024-02-11 15:43 | disposition home or self-care (01) ==
LOC: US 15:42
PROVIDERS: PCP Nurse Practitioner Family; Visit Provider Nurse Practitioner Family
DX: M79.606 Pain in leg, unspecified (principal)
CPT/HCPCS: 93970

== ENCOUNTER 2024-02-21 07:32 | Outpatient (OUT) | payer OTHER, SELFPAY ==
--- NOTE | 2024-02-21 07:34 | CA_ITS ---
Patient Name: JONES HALEY MR#: [id number] : 1980 Exam Date: 02/21/2024 Ordering Doctor: SAMSON ENCISO CNP ECHOCARDIOGRAM REPORT PROCEDURE: CA ECHO DOPPLER COMPLETE INDICATIONS: Hypertension COMPARISON: None. DESCRIPTION: COMPLETE ECHOCARDIOGRAM Real-time transthoracic echocardiography with 2D, M-mode, spectral and color flow Doppler performed. QUALITY: Technical quality was good. LEFT VENTRICLE: Normal chamber size. Mild concentric left ventricular hypertrophy. LV EF: Global left ventricular systolic function is hyperdynamic; visual estimation of left ventricular ejection fraction is 65-70%. No wall motion abnormalities DIASTOLIC: Normal diastolic function. ATRIAL SEPTUM: Not adequately seen. LEFT ATRIUM: Normal chamber size. RIGHT ATRIUM: Normal chamber size. RIGHT VENTRICLE: Normal chamber size. Normal right ventricular systolic function. TRICUSPID VALVE: Normal mobility and thickness. No stenosis with trivial regurgitation. No evidence of pulmonary hypertension. RVSP 23mmHg MITRAL VALVE: Normal mobility and thickness. No evidence of mitral valve stenosis. There is no mitral annular calcification. Trivial mitral regurgitation. AORTIC VALVE: Normal trileaflet appearance. No visible sclerosis. Normal leaflet mobility. No evidence of aortic valve stenosis. No aortic regurgitation. AORTIC ROOT: Normal diameter and appearance. PULMONIC VALVE: Normal thickness and mobility. No stenosis. Trivial regurgitation. PERICARDIUM: Anterior free space; trivial effusion vs fat pad. IVC: Collapses with inspirations. Normal size. CONCLUSION: 1. Global left ventricular systolic function is hyperdynamic; visually estimated ejection fraction is 65 to 70% 2. Normal right ventricular size and systolic function 3. Mild left ventricular hypertrophy 4. Normal diastolic function 5. The left atrium is normal in size 6. No significant valvular abnormalities 7. Anterior free space; trivial effusion versus fat pad Adult Echocardiography Procedure Report Left Ventricle LVEDD (3.7 - 5.6 cm): 4.28 cm LVESD (2.2 - 4.0 cm): 3.05 cm LVIVS thickness (0.6 - 1.2 cm): 1.13 cm LVPW thickness (0.5 - 1.0 cm): 1.10 cm e': 0.09 m/s E - e': 8.42 LVOT Max Gradient: 2.79 mm[Hg] LVOT Area (cm2): 0.84 m/s Peak Velocity (LVOT): 0.84 m/s Mean Velocity (LVOT): 0.62 m/s LVOT Diameter 2.08 cm Left Ventricular Ejection Fraction: 68.54 % Left Atrium LA Volume Index (2D A2C): 32.50 ml/m2 Left Atrium Systolic Dimension: 4.17 cm Mitral Valve MV E to A Ratio: 1.30 Mitral Valve A-Wave Peak Velocity: 0.60 m/s Mitral Valve E-Wave Peak Velocity: 0.78 m/s Right Ventricle RV Internal Diastolic Dimension: 3.67 cm Aorta AO Root Diam: 3.17 cm Ascending Ao Diam: 2.66 cm Aortic Valve AoV Area (Peak Dima): 2.63 cm2, 2.63 cm2 AoV Area (VTI): 2.74 cm2, 2.74 cm2 Peak Velocity(Antegrade Flow): 1.08 m/s Peak Gradient(Antegrade Flow): 4.67 mm[Hg] Mean Velocity(Antegrade Flow): 0.75 m/s Mean Gradient(Antegrade Flow): 2.48 mm[Hg] Velocity Time Integral: 24.18 cm Tricuspid Valve Peak Velocity (Regurgitant Flow): 1.94 m/s, 2.23 m/s Pulmonic Valve Mean Gradient: 2.41 mm[Hg], 2.71 mm[Hg] Mean Velocity: 0.72 m/s, 0.77 m/s Peak Velocity: 1.03 m/s Peak Gradient: 3.97 mm[Hg], 4.50 mm[Hg] Right Atrium Right Atrium Systolic Pressure: 61.89 ml, 61.89 ml Dictated by: Calos Mendoza M.D. on 02/21/2024 at 13:23 Approved by: Calos Mendoza M.D. on 02/21/2024 at 13:28
--- OUTSIDE RECORDS SUMMARY | 2024-02-21 07:36 | XMS_ITS | CCD ---
Author Organization [facility] CliniSyde Care Team Providers Care Costume Shop Manager Name Role Phone VICTOR MANUEL GUZMAN Referring Unavailable Unavailable Primary Care Provider UnavailJAREN Stuart Referring Unavailable Britt PREPARATION SUPERVISOR FREEZING.TRUE, Gay Primary Care Provider Mirela Kelsey Unavailable Britt PREPARATION SUPERVISOR FREEZING.STRATEGIC SOURCING CONSULTANT, Gay Primary Care Provider Madelaine Ferris MD Unavailable Madelaine Ferris MD Primary Care Provider Madelaine Ferris MD Unavailable Madelaine Ferris MD Primary Care Provider [phone] Madelaine Ferris MD Unavailable Madelaine Ferris MD Primary Care Provider [phone] JOSY Harris, DR BURKETT Primary Care Unavailable MISC, DR SMITH Consulting Unavailable MISC, DR SMITH Attending Unavailable MISC, DR SMITH Admitting Unavailable MADELAINE GOMEZ Consulting Unavailable HAY ., DR GALLEGOS Consulting Unavailable HAY ., DR GALLEGOS Attending Unavailable HOY ., DR BURKETT Primary Care Unavailable HAY ., DR GALLEGOS Admitting Unavailable KRISTINA GARRETT Consulting Unavailable HOY ., DR BURKETT Primary Care Unavailable HOY ., DR BURKETT Consulting Unavailable HOY ., DR BURKETT Attending Unavailable HOY ., DR BURKETT Admitting Unavailable GAY ENCISO Attending Unavailable GAY ENCISO Admitting Unavailable HOY ., DR BURKETT Primary Care Unavailable HOY ., DR BURKETT Consulting Unavailable HOY ., DR BURKETT Primary Care Unavailable HOY ., DR BURKETT Consulting Unavailable HOY ., DR BURKETT Attending Unavailable HOY ., DR BURKETT Admitting Unavailable LAURE, DR DIETZ Consulting Unavailable BLANK, DR DIETZ Attending Unavailable BLANK, DR DIETZ Admitting Unavailable GAY ENCISO Primary Care Unavailable BLANK, DR DIETZ Consulting Unavailable BLANK, DR DIETZ Attending Unavailable BLANK, DR DIETZ Admitting Unavailable HOY ., DR BURKETT Primary Care Unavailable PARMJIT ., MICKY Attending Unavailable PARMJIT ., MICKY Admitting Unavailable NEEL, DR AURORA Pacheco Consulting Unavailable HOY ., [...] Charles Mitchell DO Primary Care Provider Mitali PREPARATION SUPERVISOR FREEZING-STRATEGIC SOURCING CONSULTANT, Michelle London Unavailable Unavailable Primary Care Provider UnavailAurora Carney MD Unavailable Britt PREPARATION SUPERVISOR FREEZING-STRATEGIC SOURCING CONSULTANT, Gay Jane Primary Care Provider Madelaine Ferris MD Primary Care Provider MICHELLE BRITTON Attending Unavailable CHARLES MITCHELL Primary Care Unavailable MICHELLE BRITTON Referring Unavailable LOIS HOLM Attending Unavailable GAY ENCISO S Primary Care Unavailable LOIS HOLM Attending Unavailable GAY ENCISO S Primary Care Unavailable ALHAJI HEAD Attending Unavailable MADELAINE FERRIS Primary Care Unavailable SHARRON ROGERS Attending Unavailab JUAN LUIS Mejía Attending Unavailable BERNABE ENGLISH Attending Unavailable GORDO BARFIELD Attending Unavailable GAY ENCISO Referring Unavailable JUAN LUIS RICHARDSON Attending Unavailable SHARRON ROGERS Attending Unavailab SHARRON Braden Attending Unavailab KATY Yates Attending Unavailable DIGNA PRICE Attending Unavailable SHARRON ROGERS Attending Unavailab le GRAZIANSHARRON Dorantes Referring Unavailab le SHARRON ROGERS Attending Unavailab le SHARRON ROGERS Referring Unavailab SHARRON Braden Referring Unavailab MD Adolfo Gramajo Attending Provider WALESKA Enciso Primary Care Provider Adolfo Kang Attending Unavailable Adolfo Kang Admitting Unavailable Gay Enciso Primary Care Unavailable HOY, MADELAINE M Primary Care Unavailable CHRISTIE PHAN Referring Unavailable CHRISTIE PHAN Attending Unavailable HOY, AMDELAINE M Primary Care Unavailable HOY, MADELAINE M Primary Care Unavailable CHRISTIE PHAN Attending Unavailable HOY, MADELAINE M Primary Care Unavailable HOY, MADELAINE M Primary Care Unavailable HOY, MADELAINE M Primary Care Unavailable NEDA NARAYANAN Attending Unavailable HOY, MADELAINE M Primary Care [...] Primary Care Unavailable LYNNE NI Referring Unavailable LASTLYNNE Attending Unavailable HOY, MADELAINE M Primary Care [...] Onset Reaction(s) Facility Dihydrofolate Reductase Inhibitors (antibiotic) (3 sources) Trimethoprim Drug Allergy Other: See Comments [facility] Doxycycline (3 sources) Doxycycline Drug Allergy Other: See Comments [facility] Latex (3 sources) Latex Substance Allergy Rash [facility] Lincosamides (antibiotic) (3 sources) Clindamycin Drug Allergy Unknown [facility] Opioid Agonists (3 sources) Codeine Drug Allergy Other: See Comments [facility] Sulfamethoxazole / Trimethoprim (4 sources) Sulfamethoxazole / Trimethoprim Drug Allergy Swelling [facility] Sulfonamides (antibiotic) (3 sources) Sulfamethoxazole Drug Allergy Other: See Comments [facility] Work Phone: (20 sources) Codeine; Translations: [CODEINE] Drug Allergy Other: See Comments [facility] (20 sources) Latex; Translations: [LATEX] Drug Allergy Rash [facility] (20 sources) Sulfamethoxazole; Translations: [SULFAMETHOXAZOLE] Drug Allergy GI Upset, Other: See Comments [facility] (20 sources) Clindamycin; Translations: [CLINDAMYCIN] Drug Allergy Unknown [facility] (4 sources) Sulfamethoxazole / Trimethoprim Drug Allergy lymph swelling [facility] Other (20 sources) Doxycycline; Translations: [DOXYCYCLINE] Drug Allergy Other: See Comments, Other, Unknown [facility] (20 sources) Sulfamethoxazole / Trimethoprim; Translations: [SULFAMETHOXAZOLE-T RIMETHOPRIM] Drug Allergy Swelling, Other [facility] (20 sources) Trimethoprim; Translations: [TRIMETHOPRIM] Drug Allergy Other: See Comments [facility] (1 source) Latex Drug allergy (disorder) [facility] Rep[facility] (1 source) Sulfamethoxazole / Trimethoprim Drug Allergy [facility] (3 sources) Sulfamethoxazole Allergy to substance [facility] [facility] (2 sources) Latex Propensity to adverse reactions Rash [facility] (1 source) Clindamycin Drug Allergy [address] [facility] Repository (1 source) Sulfamethoxazole Drug Allergy [facility] (1 source) Trimethoprim Drug Allergy [facility] Rep[facility] Medications Current Medications Medication Drug Class(es) Dates Sig (Normalized) Sig (Original) acetaminophen 500 mg oral tablet (20 sources) acetaminophen (T YLENOL) 500 mg tablet Take 1,000 mg by mouth. Active acetaminophen (T ylenol) 325 MG tablet every 4 (four) hours. 0 Active acetaminophen (T YLENOL) 500 mg tablet Take 1,000 mg by mouth. 0 Active Comment on above: Take 1,000 mg by kristal th. ALPRAZolam 0.25 mg oral tablet (7 sources) Benzodiazepine Start: take 0.25 mg by [...] chewable tablet Take 81 mg by mouth. Active Comment on above: Take 81 mg by mouth. azaTHIOprine 50 mg oral tablet (20 sources) Purine Antimetabolite Start: 10-20-2023 take 50 mg by mouth three times daily Azathioprine Active 50 MG PO Three times daily October 20, 2023 12:00am Start: 10-20-2023 take 50 mg by mouth twice ankur y Azathioprine Active 50 MG PO Twice daily October 20, 2023 12:00am Start: 08-18-2023 End: 11-11-2023 take 3 tablets by mouth once daily at mealtime azaTHIOprine (IMURAN) 50 mg tablet Indications: Other systemic lupus erythematosus with other organ involvement (HCC) , 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 TAKE 3 TABLETS [...] other organ involvement (HCC) , 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 TAKE 3 TABLETS BY MOUTH DAILY WITH FOOD. HOLD IF ON ANTIBIOTICS OR ILL. 90 tablet 3 02/16/2023 Active Start: 08-19-2022 End: 11-24-2022 take 2 tablets by mouth once daily at mealtime azaTHIOprine (IMURAN) 50 mg tablet Indications: Other systemic lupus erythematosus with other organ involvement (HCC) , 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 assisted 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 Take 2tab daily [...] Active clobetasol propionate 0.5 mg/ml medicated shampoo (10 sources) Corticosteroid Start: 10-20-2023 Clobetasol Act kaycee 1 APPLIC TOPICAL As Directed October 20, 2023 12:00am Start: 10-20-2023 Clobetasol Act kaycee TOPICAL October 20, 2023 12:00am Start: 10-23-2022 clobetasoL 0.0 5 % shampoo Apply topically. 1 application to the scalp in the shower topically 3-4 times a week 0 10/23/2022 Active CPAP/BIPAP/OTHER (20 sources) Start: 05-05-2022 End: 09-19-2049 CPAP/BIPAP/OTHER Indications : JOSE RAFAEL (obstructive sleep apnea) Type .CPAPSettings into a note to see current settings/supplies/DME information. 1 Each 05/05/2022 09/19/2049 Active Start: 05-05-2022 End: 09-19-2049 CPAP/BIPAP/OTHER Indications : JOSE RAFAEL (obstructive sleep apnea) Type .CPAPSettings into a note to see current settings/supplies/DME information. 1 Each 0 05/05/2022 09/19/2049 Active Start: 04-13-2022 End: 04-26-2023 CPAP/BIPAP/OTHER Indications : JOSE RAFAEL (obstructive sleep apnea) Type .CPAPSettings into a note to see current settings/supplies/DME information. 1 Each 0 04/13/2022 04/26/2023 Discontinued (Duplicate Entry) Start: 04-13-2022 End: 04-07-2050 CPAP/BIPAP/OTHER Indications : JOSE RAFAEL (obstructive sleep apnea) Type .CPAPSettings into a note to see current settings/supplies/DME information. 1 Each 0 04/13/2022 08/28/2049 Active Comment on above: Type .CPAPSettings i nto a note to see current settings/supplies/DME information. ergocalciferol 1.25 mg oral capsule (20 sources) Provitamin D2 Compound Start: 2023 End: 2023 take 60174 [IU] by mouth every week Ergocalciferol (Vitamin D2) Active 06701 UNIT PO every week October 20, 2023 12:00am Start: 10-31-2022 End: 01-24-2023 take 1 capsule by mouth every week ergocalciferol (Vitamin D-2) 1.25 MG (08859 UT) capsule Take 1 capsule (50,000 Units) [...] every week ergocalciferol (Vitamin D2) 1.25 MG (05400 UT) capsule Take 50,000 Units by mouth [...] 05/31/2024 Active fluocinonide 0.5 mg/ml topical solution (10 sources) Corticosteroid Start: Fluocinonide Active 1 APPLIC TOPICAL Daily October [...] mg tablet Take 600 mg by mouth. Active ibuprofen 200 MG tablet every 8 [...] (20 sources) beta-Adrenergic Judie Start: 10-20-2023 take 200 mg by mouth once daily Metoprolol Tartrate Active 200 MG PO Daily October 20, 2023 12:00am Start: 10-20-2023 take 50 mg by mouth once daily Metoprolol Tartrate Active 50 MG PO Daily October 20, 2023 12:00am Start: 04-23-2023 take 2 tablets by mo [facility] twice daily metoprolol tartrate (Lopressor) 50 mg tablet Take 2 tablets by mouth twice a day. 0 04/23/2023 Active Start: 05-25-2022 take 1 tablet by kristal th twice daily metoprolol tartrate, short acting, (LOPRESSOR) 50 mg tablet Take 50 mg by mouth twice daily. 05/25/2022 Active Start: 07-29-2020 End: 10-07-2020 take 1 tablet by mouth twice daily metoprolol tartrate, short acting, (LOPRESSOR) 25 mg tablet Take 25 mg by mouth twice daily. 0 07/29/2020 Active Comment on above: Take 25 mg by mouth twice daily. Take 50 mg by mouth twice daily. montelukast 10 mg oral tablet (5 sources) Leukotriene Receptor Antagonist Start: End: take 1 tablet [...] Discontinued Start: 01-19-2022 take 1 capsule by [facility] once daily naltrexone capsule 1 mg TAKE ONE CAPSULE BY MOUTH DAILY 0 01/19/2022 Active Comment on above: TAKE ONE CAPSULE BY MOUTH DAILY nitroglycerin 0.4 mg sublingual tablet (20 sources) Nitrate Vasodilator Start: 10-07-2020 End: 07-25-2022 nitroglycerin sublingual (NITROQUICK) 0.4 mg SL tablet Dissolve 0.4 mg under the tongue. 0 10/07/2020 07/25/2022 Discontinued Comment on above: Dissolve 0.4 mg unde r the tongue. nystatin 937925 unt/ml oral suspension (5 sources) Polyene Antifungal Start: 01-27-2024 End: 02-03-2024 nystatin (MYCOSTATIN) 100,000 unit/mL suspension Take 5 mL by mouth four times daily for 7 days. SWISH AND SWALLOW 1 TEASPOON(S) (5ML) 4 TIMES PER DAY. 140 mL 01/27/2024 02/03/2024 Active Start: 01-15-2023 nystatin (Myco statin) cream Indications: Candidiasis of skin Apply to left armpit BID until clear 15 g 0 01/15/2023 Active ondansetron 4 mg disintegrating oral tablet (2 sources) Serotonin-3 Receptor Antagonist Start: 06-27-2023 take 1 tablet by mouth every six hours as needed for nausea and vomiting ondansetron ODT (Zofran-ODT) 4 MG disintegrating tablet DISSOLVE 1 TABLET IN MOUTH EVERY 6 HOURS NEEDED FOR NAUSEA AND VOMITING 0 06/27/2023 Active phentermine hydrochloride 37.5 mg oral tablet (13 sources) Sympathomimetic Amine Anorectic Start: 04-26-2023 End: 08-24-2023 take 1 tablet by mouth once daily [...] 10 mg oral tablet (20 sources) Start: 01-12-2024 predniSONE (DELTASONE) 10 mg tablet Indications: Other systemic lupus erythematosus with other organ involvement (HCC) Take 40mg daily x 3, decrease by 5mg every 3days until taking 10mg daily with food thereafter (no oral nsaids) 120 tablet 1 01/12/2024 Active Start: 10-05-2023 End: 01-12-2024 take 10 mg by mouth once daily Prednisone Active 10 MG PO Daily October 20, 2023 12:00am Start: 05-12-2023 End: 10-05-2023 predniSONE (DELTASONE) 10 [...] on above: TAKE 1 CAPSULE BY MO [facility] 3 TIMES A DAY FOR 30 DAYS TAKE 1 CAPSULE BY MO [facility] 3 TIMES A DAY take [...] mouth two times a day. 180 tablet 05/26/2023 Active Comment on above: Take 1 [...] mouth. dicyclomine hydrochloride 10 mg oral capsule (5 sources) Anticholinergic Start: 2023 End: 2023 take [...] on above: Take 1 capsule by [facility] once daily. famotidine 20 mg oral [...] 20 mg by mouth daily at bedtime. fidaxomicin 200 mg oral tablet (10 sources) Macrolide Antibacterial Start: 4 End: 4 take 1 tablet by mouth every other day Fidaxomicin (Dificid) 200 mg tablet Discontinued 200 MG PO .every other day October 20, 2023 12:00am December 16, 2023 2:11pm Start: 10-20-2023 End: 12-16-2023 take 1 tablet by mouth every twelve hours Fidaxomicin (Dificid) 200 mg tablet Discontinued 200 MG PO Every 12 hours 20 October 20, 2023 12:00am December 16, 2023 2:11pm gentamicin 0.001 mg/mg topical ointment (3 sources) Start: 11-22-2023 End: 12-16-2023 Gentamicin Discontinued 1 APPLIC TOPICAL Three times daily 15 November 22, 2023 12:00am December 16, 2023 2:12pm omeprazole 40 mg delayed release oral capsule (3 sources) Proton Pump Inhibitor Start: 08-09-2020 End: 02-25-2022 take 1 capsule by mouth twice daily [...] on above: Take 1 capsule by mo [facility] twice daily. pantoprazole 40 mg delayed release oral tablet (5 sources) Proton Pump Inhibitor Start: 4 End: 4 take 1 tablet by mouth once daily Pantoprazole Discontinued 40 MG PO Daily 30 September 22, 2023 12:00am October 20, 2023 1:07pm Take 1 tablet orally once a day. pravastatin sodium 20 mg oral tablet (7 sources) HMG-CoA Reductase Inhibitor Start: 4 End: 4 take 20 mg by mouth once daily Pravastatin Discontinued 20 MG PO Daily October 20, 2023 12:00am October 20, 2023 1:08pm Start: 06-24-2023 [facility] pravastatin (Pravachol) 20 MG tablet [...] tablet (20 sources) HMG-CoA Reductase Inhibitor Start: 03-10-20 End: 04-26-20 23 simvastatin (ZOCOR) 20 mg tablet vitamin b12 1 mg/ml injectable solution (5 sources) Vitamin B12 Start: 01-25-20 24 End: 01-25-20 24 inject 1 dose by intramuscular injection once 1,000 mcg, INTRAMUSCULAR, ONCE, 1 dose, On Wed01/25/24 at 1130 Start: 12-27-2023 End: 12-27-2023 cyanocobalamin 1,000 mcg inj ection Start: 11-29-2023 End: 11-29-2023 cyanocobalamin 1,000 mcg inj ection Start: 10-27-2023 End: 10-27-2023 cyanocobalamin 1,000 mcg inj ection Start: 09-30-2023 End: 09-30-2023 cyanocobalamin 1,000 mcg inj ection Problems Active Problems Problem Classification Problem Date Documented Da te Episodic/Chronic Abdominal pain (8 sources) Finding of sensation of abdomen; Translations: [Unspecified abdominal pain] 09-22-2023 Episodic Anxiety disorders (4 sources) Anxiety; Translations: [Anxiety disorder, unspecified] Onset: 4 06-09-2023 Chronic Bacterial infection; unspecified site (1 source) Bacterial infection due to Pseudomonas; Translations: [Other bacterial infections of unspecified site] 01-27-2024 Episodic Cardiac dysrhythmias (10 sources) Postural orthostatic tachycardia [...] unspecified] Onset: 5 05-31-2014 Chronic Esophageal disorders (10 sources) Laryngopharyngeal reflux; Translations: [Gastro-esophageal reflux disease without esophagitis] Onset: 4 07-06-2023 Chronic Essential hypertension (13 sources) Essential hypertension; Translations: [Essential (primary) hypertension] Onset: 4 06-09-2023 Chronic Fever of unknown origin (1 source) Pyrexia of unknown origin; Translations: [Fever, unspecified] 04-26-2023 Episodic Headache; including migraine (3 sources) Headache; Translations: [Nonintractable episodic headache] Onset: 4 06-01-2023 Episodic Intestinal infection (18 sources) Clostridium difficile diarrhea; Translations: [Enterocolitis due to Clostridium difficile, not specified as recurrent] 09-22-2023 Episodic Malaise and fatigue (20 sources) Malaise and fatigue; Translations: [Chronic fatigue, unspecified] Onset: 4 Chronic Menstrual disorders (20 sources) Excessive and frequent menstruation with irregular cycle; Translations: [Menometrorrhagia] Onset: 3 Chronic Mood disorders (20 sources) Recurrent depression; Translations: [Major depressive disorder, recurrent, unspecified] Onset: 4 06-18-2014 Chronic Nonmalignant breast conditions (2 sources) Mammary duct ectasia; 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] 12-16-2023 Chronic Nonmalignant breast conditions (4 sources) Discharge from nipple; Translations: [Nipple discharge] 12-16-2023 Episodic Nutritional deficiencies (20 sources) Vitamin D deficiency; Translations: [Vitamin D deficiency, unspecified] Onset: 1 Chronic Osteoarthritis (20 sources) Degenerative joint disease involving multiple joints; 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] Onset: 1 Chronic Osteoporosis (20 sources) 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; Translations: [Other osteoporosis without current pathological fracture] Onset: 3 02-04-2023 Chronic Other aftercare (3 sources) Drug therapy status; Translations: [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 assisted 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] Episodic Other aftercare (1 source) Polypharmacy ; Translations: [Other 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 (current) drug therapy] Episodic Other aftercare (1 source) Long-term 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 drug therapy; Translations: [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] 11-11-2023 Episodic Other [...] right hand] 10-05-2023 Episodic Other gastrointestinal disorders (5 sources) Diarrhea; Translations: [Diarrhea, unspecified] 09-22-2023 Episodic Other gastrointestinal disorders (3 sources) Diarrhea, unspecified; Translations: [Diarrhea] 09-22-2023 Episodic [...] syndrome] 06-18-2014 Chronic Other nervous system disorders (4 sources) Chronic pain; Translations: [Other chronic pain] 04-26-2023 Chronic Other nervous system disorders (8 sources) Disorder of autonomic nervous system; Translations: [Disorder of the autonomic nervous system, unspecified] Onset: 4 06-09-2023 Chronic Other nervous system disorders (2 sources) Disorder of the autonomic nervous system, unspecified; Translations: [Disorder of the autonomic nervous system, unspecified] Onset: 4 Chronic Other nervous system disorders (3 sources) Other chronic pain; Translations: [Other chronic pain] Onset: 4 01-28-2024 Chronic Other nervous system disorders (2 sources) [...] nutritional; endocrine; and metabolic disorders (6 sources) Insulin resistance; Translations: [Insulin resistance, unspecified] 03-10-2023 Chronic Other nutritional; endocrine; and metabolic disorders (1 source) Morbid obesity; Translations: [Morbid (severe) obesity due to excess calories] 07-13-2023 Chronic Other nutritional; endocrine; and metabolic disorders (3 sources) Morbid (severe) obesity due to excess calories; Translations: [Morbid (severe) obesity due to excess calories (Multi)] Onset: 3 Chronic Other screening for suspected conditions (not mental disorders or infectious disease) (20 sources) Elevated C-reactive protein; Translations: [Elevated C-reactive [...] erythematosus] Onset: 2 Chronic Unclassified (1 source) Supraventricular tachycardia, unspecified (CMS-HCC); Translations: [Supraventricular tachycardia, unspecified (CMS-HCC)] Onset: 4 Unclassified (1 source) Supraventricular tachycardia, unspecified; Translations: [...] (20 sources) Drug therapy finding; Translations: [Other assisted (current) drug therapy] Onset: 03-05-2021 Episodic Other aftercare (20 sources) H/O: high risk medication; Translations: [Other 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 (current) drug therapy] Onset: 06-15-2022 06-15-2022 Episodic Other aftercare (1 source) Other assisted (current) drug therapy; Translations: [OTH GROUP HOME 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 THERAPY] Onset: 03-23-2022 Episodic Other aftercare (20 sources) Long-term 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 systemic steroid; Translations: [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 (current) use of 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] Onset: 02-04-2023 02-04-2023 Episodic Other connective tissue disease (20 sources) Pain in toe; Translations: [Pain in right toe(s)] Onset: 03-05-2021 Episodic Other connective tissue disease (20 sources) Fibromyalgia; Translations: [Fibromyalgia] Onset: 10-24-2021 Episodic Other connective tissue disease (20 sources) Other symptoms and signs involving the [...] LEG INITIAL ENC] Onset: 03-21-2022 Episodic Other lower respiratory disease (3 sources) [...] metabolic disorders (20 sources) Body mass index 30+ - obesity; Translations: [Obesity, unspecified] Onset: 05-31-2014 Resolved: 07-06-2016 07-06-2016 Chronic Other nutritional; endocrine; and metabolic disorders (20 sources) History of nutritional deficiency; Translations: [Personal history of other endocrine, nutritional and metabolic disease] Onset: 10-05-2023 10-05-2023 Episodic Other skin disorders (20 sources) Eruption; [...] 07-13-2023 07-13-2023 Unclassified (1 source) Supraventricular tachycardia, unspecified (CMS-HCC); Translations: [Supraventricular tachycardia, unspecified (CMS-HCC)] Onset: 12-24-2023 Unclassified (1 source) Supraventricular tachycardia, unspecified; Translations: [Supraventricular tachycardia, unspecified] Onset: 07-13-2023 Results Test Name Value Interpretation Reference Range Facility [facility] 02-18-2024 [facility] Telephone (MYNORThao) JONES HALEY ([id number]) 1980 F Date Time Provider Department 02/18/24 LYNNE NI During your visit today, we recorded the following information about you: Sherrie Jimenes 02/18/2024 1:28 PM Signed Patient is calling the [facility] office requesting Dr. Ni to place a referral to genetics. Please advise. Lynne Ni MD 02/20/2024 9:04 AM Addendum See other note Please call patient Thank you for the update. Sorry to hear about your discomfort. Placed referrals to genetics. May schedule at your convenience. Please schedule follow up in rheumatology too. Office will be happy to assist with scheduling. Hope you feel better soon! Warm regards, :) Allergies As of Date: 02/18/2024 Noted Allergy Reaction BACTRIM (SULFAMETHOXAZOLE) 05/31/2014 14 - Other: See Comments Comments: CAUSED ENLARGED LYMPH NODES CODEINE 05/31/2014 14 - Other: See Comments Comments: Make her feel Jittery. OTHERWISE, NO SOB/WHEEZING, and NO DYSPHAGIA, NO URTICARIA, NO ANGIOEDEMA CLINDAMYCIN 03/04/2022 16 - Unknown Comments: Patient states it was a long time ago and she did not have a severe reaction. She does not believe she is allergic, she just thinks she just experienced side effects. DOXYCYCLINE 01/19/2022 14 - Other: See Comments Comments: Patient states it was a long time ago and she did not have a severe reaction. She does not believe she is allergic, she just thinks she just experienced side effects. LATEX 05/31/2014 2 - Rash Comments: Patient states it was a long time ago and she did not have a severe reaction. She does not believe she is allergic, she just thinks she just experienced side effects. SULFAMETHOXAZOLE-TRIME THOPRIM 03/04/2022 7 - Swelling Comments: Patient states it was a long time ago and she did not have a severe reaction. She does not believe she is allergic, she just thinks she just experienced side effects. TRIMETHOPRIM 01/19/2022 14 - Other: See Comments Comments: Patient states it was a long time ago and she did not have a severe reaction. She does not believe she is allergic, she just thinks she just experienced side effects. Date Reviewed: 02/14/2024 Reviewed by: Timmy Heck APRN.STRATEGIC SOURCING CONSULTANT - Fully Assessed Reason for Visit: Appointment [186] Prescriptions as of 02/20/2024 - predniSONE (DELTASONE) 10 mg tablet Take 40mg daily x 3, decrease by 5mg every 3days until taking 10mg daily with food thereafter (no oral nsaids) - folic acid 1 mg tablet Take 1 tablet by mouth once daily. - azaTHIOprine (IMURAN) 50 mg tablet TAKE 3 TABLETS BY MOUTH DAILY WITH FOOD. HOLD IF ON ANTIBIOTICS OR ILL. - hydrOXYchloroQUINE (PLAQUENIL) 200 mg tablet TAKE 1 TAB TWICE A DAY WITH FOOD *SUNSCREEN WHILE OUTDOORS/OPHTHAMOLOGY EVERY 6-12 MONTHS WHILE ON* - belimumab (BENLYSTA) 200 mg/mL auto-injector Inject 200mg (1 pen) subcutaneously once weekly - ergocalciferol 50,000 unit capsule (VITAMIN D2, DRISDOL) Take 1cap by mouth once a week with food. - topiramate (TOPAMAX) 25 mg tablet Take 1 tablet by mouth two times a day. - pregabalin (LYRICA) 75 mg capsule take 1 capsule by mouth three times a day - metoprolol tartrate, short acting, (LOPRESSOR) 50 mg tablet Take 50 mg by mouth twice daily. - CPAP/BIPAP/OTHER Type .CPAPSettings into a note to see current settings/supplies/DME information. - acetaminophen (TYLENOL) 500 mg tablet Take 1,000 mg by mouth. - aspirin 81 mg chewable tablet Take 81 mg by mouth. - ibuprofen (MOTRIN) 200 mg tablet Take 600 mg by mouth. 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*03/05/2021 Rash and nonspecific skin eruption [R21] 03/05/2021 Swelling of lymph nodes [R59.9] 03/05/2021 Chronic pain of toes of both feet [M79.674, M79*03/05/2021 Bilateral leg weakness [R29.898] 03/05/2021 Hair loss [L65.9] 03/05/2021 Family history of Crohn's disease [Z83.79] 03/05/2021 Long-term use of Plaquenil [Z79.899] 03/05/2021 Vitamin D deficiency [E55.9] 03/06/2021 Fibromyalgia [M79.7] 10/24/2021 Systemic lupus erythematosus (HCC) [M32.9] 10/24/2021 Megaloblastic anemia due to vitamin B12 deficie*03/04/2022 Obesity, Class II, BMI 35-39.9 [E66.9] 03/09/2022 03/10/2023 Discoid lupus erythematosus [L93.0] 02/14/2022 JOSE RAFAEL (obstructive sleep apnea) [G47.33] 05/20/2022 Somnolenc (more content not included)... Normal [facility] HCG ( test) IA.rapi d Ql (U)Ordered By: Adolfo Kang on 02-16-2024 HCG ( test) Ql (U) Negative [facility] HCG,Urineon 02-16-2024 Beta HCG ( test) Ql (U) Negative Normal [facility] Comment on above: Result Comment: PERF ORMED BY: [address]zy [place] [id number] PATHOLOGIST [employer] REPAIRER OFE CANNON M.D. Performed By: #### U HCG #### [place] [id number] [facility] CNPNon 02-15-2024 CNPN Telephone ([facility]) JONES HALEY ([id number]) 1980 F Date Time Provider Department 02/15/24 TIMMY HECK [facility] During your visit today, we recorded the following information about you: Hansa Javed LPN 02/15/2024 9:49 AM Signed PAP ORDER FAXED TO [facility] WITH DEMOGRAPHICS, OFFICE NOTES WITH CONFIRMATON NOTED. Allergies As of Date: 02/15/2024 Noted Allergy Reaction BACTRIM (SULFAMETHOXAZOLE) 05/31/2014 14 - Other: See Comments Comments: CAUSED ENLARGED LYMPH NODES CODEINE 05/31/2014 14 - Other: See Comments Comments: Make her feel Jittery. OTHERWISE, NO SOB/WHEEZING, and NO DYSPHAGIA, NO URTICARIA, NO ANGIOEDEMA CLINDAMYCIN 03/04/2022 16 - Unknown Comments: Patient states it was a long time ago and she did not have a severe reaction. She does not believe she is allergic, she just thinks she just experienced side effects. DOXYCYCLINE 01/19/2022 14 - Other: See Comments Comments: Patient states it was a long time ago and she did not have a severe reaction. She does not believe she is allergic, she just thinks she just experienced side effects. LATEX 05/31/2014 2 - Rash Comments: Patient states it was a long time ago and she did not have a severe reaction. She does not believe she is allergic, she just thinks she just experienced side effects. SULFAMETHOXAZOLE-TRIME THOPRIM 03/04/2022 7 - Swelling Comments: Patient states it was a long time ago and she did not have a severe reaction. She does not believe she is allergic, she just thinks she just experienced side effects. TRIMETHOPRIM 01/19/2022 14 - Other: See Comments Comments: Patient states it was a long time ago and she did not have a severe reaction. She does not believe she is allergic, she just thinks she just experienced side effects. Date Reviewed: 02/14/2024 Reviewed by: Timmy Heck APRN.STRATEGIC SOURCING CONSULTANT - Fully Assessed Reason for Visit: Orders [681] Cmt: PAP RX. Prescriptions as of 02/15/2024 - predniSONE (DELTASONE) 10 mg tablet Take 40mg daily x 3, decrease by 5mg every 3days until taking 10mg daily with food thereafter (no oral nsaids) - folic acid 1 mg tablet Take 1 tablet by mouth once daily. - azaTHIOprine (IMURAN) 50 mg tablet TAKE 3 TABLETS BY MOUTH DAILY WITH FOOD. HOLD IF ON ANTIBIOTICS OR ILL. - hydrOXYchloroQUINE (PLAQUENIL) 200 mg tablet TAKE 1 TAB TWICE A DAY WITH FOOD *SUNSCREEN WHILE OUTDOORS/OPHTHAMOLOGY EVERY 6-12 MONTHS WHILE ON* - belimumab (BENLYSTA) 200 mg/mL auto-injector Inject 200mg (1 pen) subcutaneously once weekly - ergocalciferol 50,000 unit capsule (VITAMIN D2, DRISDOL) Take 1cap by mouth once a week with food. - topiramate (TOPAMAX) 25 mg tablet Take 1 tablet by mouth two times a day. - pregabalin (LYRICA) 75 mg capsule take 1 capsule by mouth three times a day - metoprolol tartrate, short acting, (LOPRESSOR) 50 mg tablet Take 50 mg by mouth twice daily. - CPAP/BIPAP/OTHER Type .CPAPSettings into a note to see current settings/supplies/DME information. - acetaminophen (TYLENOL) 500 mg tablet Take 1,000 mg by mouth. - aspirin 81 mg chewable tablet Take 81 mg by mouth. - ibuprofen (MOTRIN) 200 mg tablet Take 600 mg by mouth. 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*03/05/2021 Rash and nonspecific skin eruption [R21] 03/05/2021 Swelling of lymph nodes [R59.9] 03/05/2021 Chronic pain of toes of both feet [M79.674, M79*03/05/2021 Bilateral leg weakness [R29.898] 03/05/2021 Hair loss [L65.9] 03/05/2021 Family history of Crohn's disease [Z83.79] 03/05/2021 Long-term use of Plaquenil [Z79.899] 03/05/2021 Vitamin D deficiency [E55.9] 03/06/2021 Fibromyalgia [M79.7] 10/24/2021 Systemic lupus erythematosus (HCC) [M32.9] 10/24/2021 Megaloblastic anemia due to vitamin B12 deficie*03/04/2022 Obesity, Class II, BMI 35-39.9 [E66.9] 03/09/2022 03/10/2023 Discoid lupus erythematosus [L93.0] 02/14/2022 JOSE RAFAEL (obstructive sleep apnea) [G47.33] 05/20/2022 Somnolence, daytime [R40.0] 05/20/2022 Long-term use of high-risk medication [Z79.899] 06/15/2022 CHRISTIAN positive [R76.8] 06/15/2022 Obesity, Class III, BMI >= 40 [E66.01] 09/07/2022 Bilateral wrist pain [M25.531, M25.532] 02/04/2023 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 [I73.00] 02/04/2023 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 Normal [facility] CNNURSEon 01-25-2024 CNNURSE Nurse Visit ([facility]) JONES HALEY ([id number]) 1980 F Date Time Provider Department 01/25/24 11:45 AM [facility] NURSE DRE [place] During your visit today, we recorded the following information about you: Temperature Pulse Respiration Blood pressure 97.4 degrees 68/minute 16/minute 92/67 Margret Cuenca MA 01/25/2024 11:33 AM Signed Patient Identification confirmed: yes. Injection given and documented on JUL per provider order. Margret Cuenca MA Allergies As of Date: 01/25/2024 Noted Allergy Reaction BACTRIM (SULFAMETHOXAZOLE) 05/31/2014 14 - Other: See Comments Comments: CAUSED ENLARGED LYMPH NODES CODEINE 05/31/2014 14 - Other: See Comments Comments: Make her feel Jittery. OTHERWISE, NO SOB/WHEEZING, and NO DYSPHAGIA, NO URTICARIA, NO ANGIOEDEMA CLINDAMYCIN 03/04/2022 16 - Unknown Comments: Patient states it was a long time ago and she did not have a severe reaction. She does not believe she is allergic, she just thinks she just experienced side effects. DOXYCYCLINE 01/19/2022 14 - Other: See Comments Comments: Patient states it was a long time ago and she did not have a severe reaction. She does not believe she is allergic, she just thinks she just experienced side effects. LATEX 05/31/2014 2 - Rash Comments: Patient states it was a long time ago and she did not have a severe reaction. She does not believe she is allergic, she just thinks she just experienced side effects. SULFAMETHOXAZOLE-TRIME THOPRIM 03/04/2022 7 - Swelling Comments: Patient states it was a long time ago and she did not have a severe reaction. She does not believe she is allergic, she just thinks she just experienced side effects. TRIMETHOPRIM 01/19/2022 14 - Other: See Comments Comments: Patient states it was a long time ago and she did not have a severe reaction. She does not believe she is allergic, she just thinks she just experienced side effects. 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 - azaTHIOprine (IMURAN) 50 mg tablet TAKE 3 TABLETS BY MOUTH DAILY WITH FOOD. HOLD IF ON ANTIBIOTICS OR ILL. - hydrOXYchloroQUINE (PLAQUENIL) 200 mg tablet TAKE 1 TAB TWICE A DAY WITH FOOD *SUNSCREEN WHILE OUTDOORS/OPHTHAMOLOGY EVERY 6-12 MONTHS WHILE ON* - belimumab (BENLYSTA) 200 mg/mL auto-injector Inject 200mg (1 pen) subcutaneously once weekly - ergocalciferol 50,000 unit capsule (VITAMIN D2, DRISDOL) Take 1cap by mouth once a week with food. - topiramate (TOPAMAX) 25 mg tablet Take 1 tablet by mouth two times a day. - pregabalin (LYRICA) 75 mg capsule take 1 capsule by mouth three times a day - metoprolol tartrate, short acting, (LOPRESSOR) 50 mg tablet Take 50 mg by mouth twice daily. - CPAP/BIPAP/OTHER Type .CPAPSettings into a note to see current settings/supplies/DME information. - acetaminophen (TYLENOL) 500 mg tablet Take 1,000 mg by mouth. - aspirin 81 mg chewable tablet Take 81 mg by mouth. - ibuprofen (MOTRIN) 200 mg tablet Take 600 mg by mouth. 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*03/05/2021 Rash and nonspecific skin eruption [R21] 03/05/2021 Swelling of lymph nodes [R59.9] 03/05/2021 Chronic pain of toes of both feet [M79.674, M79*03/05/2021 Bilateral leg weakness [R29.898] 03/05/2021 Hair loss [L65.9] 03/05/2021 Family history of Crohn's disease [Z83.79] 03/05/2021 Long-term use of Plaquenil [Z79.899] 03/05/2021 Vitamin D deficiency [E55.9] 03/06/2021 Fibromyalgia [M79.7] 10/24/2021 Systemic lupus erythematosus (HCC) [M32.9] 10/24/2021 Megaloblastic anemia due to vitamin B12 deficie*03/04/2022 Obesity, Class II, BMI 35-39.9 [E66.9] 03/09/2022 03/10/2023 Discoid lupus erythematosus [L93.0] 02/14/2022 Obstructive sleep apnea syndrome [G47.33] 05/20/2022 Somnolence, daytime [R40.0] 05/20/2022 Long-term use of high-risk medication [Z79.899] 06/15/2022 HCRISTIAN positive [ (more content not included)... Normal [facility] CNPNon 12-30-2023 CNPN Telephone ([facility]) JONES HALEY ([id number]) 1980 F Date Time Provider Department 12/30/23 LYNNE NI During your visit today, we recorded the following information about you: Lynne Ni MD 12/30/2023 12:51 PM Signed Please Call patient if MyChart note not read to review results/released to My Chart if tests completed at [facility]: One Borderline inflammatory test, wbc- will monitor with primary care provider. Normal rest of labs and normal other inflammatory test. Continue same vitamin D intake with food. Recheck nonfasting labs in late 02/2024 with Hematology/oncology tests.The orders have been placed. Happy to further review and discuss at follow up visit. Continue rest of treatment plan per instructions at last office visit. Thank you. 12/27/23 high glucose 120, esr 31, wbc 14.93;normal rest of cbc, cmp, crp <0.3, vitamin D 31; 12/27/23 saw heme/onc no need to be on anticoagulation, high IGM likely reactive, continue vitamin b12 every month Krista Braswell MA 12/30/2023 1:34 PM Signed Spoke to pt aware of results and recommendations. Allergies As of Date: 12/30/2023 Noted Allergy Reaction BACTRIM (SULFAMETHOXAZOLE) 05/31/2014 14 - Other: See Comments Comments: CAUSED ENLARGED LYMPH NODES CODEINE 05/31/2014 14 - Other: See Comments Comments: Make her feel Jittery. OTHERWISE, NO SOB/WHEEZING, and NO DYSPHAGIA, NO URTICARIA, NO ANGIOEDEMA CLINDAMYCIN 03/04/2022 16 - Unknown Comments: Patient states it was a long time ago and she did not have a severe reaction. She does not believe she is allergic, she just thinks she just experienced side effects. DOXYCYCLINE 01/19/2022 14 - Other: See Comments Comments: Patient states it was a long time ago and she did not have a severe reaction. She does not believe she is allergic, she just thinks she just experienced side effects. LATEX 05/31/2014 2 - Rash Comments: Patient states it was a long time ago and she did not have a severe reaction. She does not believe she is allergic, she just thinks she just experienced side effects. SULFAMETHOXAZOLE-TRIME THOPRIM 03/04/2022 7 - Swelling Comments: Patient states it was a long time ago and she did not have a severe reaction. She does not believe she is allergic, she just thinks she just experienced side effects. TRIMETHOPRIM 01/19/2022 14 - Other: See Comments Comments: Patient states it was a long time ago and she did not have a severe reaction. She does not believe she is allergic, she just thinks she just experienced side effects. Date Reviewed: 12/27/2023 Reviewed by: Neda Narayanan PA-C - Fully Assessed Reason for Visit: Results [95] Primary Visit Diagnosis:Elevated LFTs [R79.89] Other Visit Diagnoses:Elevated C-reactive protein (CRP) [R79.82] Elevated sed rate [R70.0] Vitamin D deficiency [E55.9] Screening-pulmonary TB [Z11.1] Order(s):SEDIMENTATION RATE, WESTERGREN [SQWSR] Order #: [id number] FUTURE C-REACTIVE PROTEIN [SQCRP] Order #: [id number] FUTURE VITAMIN D 25 HYDROXY [SQVITD] Order #: [id number] FUTURE BLOOD TB SCREEN [SQINFTBP] Order #: [id number] FUTURE Prescriptions as of 12/30/2023 - folic acid 1 mg tablet Take 1 tablet by mouth once daily. - azaTHIOprine (IMURAN) 50 mg tablet TAKE 3 TABLETS BY MOUTH DAILY WITH FOOD. HOLD IF ON ANTIBIOTICS OR ILL. - hydrOXYchloroQUINE (PLAQUENIL) 200 mg tablet TAKE 1 TAB TWICE A DAY WITH FOOD *SUNSCREEN WHILE OUTDOORS/OPHTHAMOLOGY EVERY 6-12 MONTHS WHILE ON* - belimumab (BENLYSTA) 200 mg/mL auto-injector Inject 200mg (1 pen) subcutaneously once weekly - predniSONE (DELTASONE) 10 mg tablet Take 10mg daily with food (no oral nsaids) - ergocalciferol 50,000 unit capsule (VITAMIN D2, DRISDOL) Take 1cap by mouth once a week with food. - topiramate (TOPAMAX) 25 mg tablet Take 1 tablet by mouth two times a day. - pregabalin (LYRICA) 75 mg capsule take 1 capsule by mouth three times a day - metoprolol tartrate, short acting, (LOPRESSOR) 50 mg tablet Take 50 mg by mouth twice daily. - CPAP/BIPAP/OTHER Type .CPAPSettings into a note to see current settings/supplies/DME information. - acetaminophen (TYLENOL) 500 mg tablet Take 1,000 mg by mouth. - aspirin 81 mg chewable tablet Take 81 mg by mouth. - ibuprofen (MOTRIN) 200 mg tablet Take 600 mg by mouth. Problem List As Of Date 12/30/2023 Noted Resolved Vitamin B12 deficiency [E53.8] 05/31/2014 Obesity (BMI 30-39.9) [E66.9] 05/31/2014 07/06/2016 Hyperlipidemia [E78.5] 05/31/2014 Ataxia [R27.0] 05/31/2014 Chronic bilateral low back pain with bilateral *05/31/2014 Depression, recurrent (HCC) [F33.9] Chronic pain syndrome [G89.4] Pain, hip [M25.559] Obesity [E66.9] Tobacco use disorder [F17.200] Bilateral sacroiliitis (HCC) [M46.1] 09/13/2015 Elevated sed rate [R70.0] 03/05/2021 High total serum IgM [R76.8] 03/05/2021 Secondary osteo (more content not included)... Normal [facility] 25(OH)D3 [facility] 25-hydroxyvitamin D3 [Mass/Vol] 31.0 ng/mL Normal 31.0-80.0 [facility] Comment on above: Order Comment: Speci men Type: BLOOD SPECIMEN Ordering Facility: [facility] Address: [address] [place] [address] Result Comment: Clas sification of 25 [place] Vitamin D status: Deficiency/Insufficiency: < or = 30 ng/ml. Sufficiency/Optimal Levels: 31-80 ng/mL Toxicity: > 100 ng/mL. Test performed by chemiluminescent immunoassay. Performed By: #### 1 989-3 #### [facility] CLIA [id number] [facility] DESK [id number] [facility] CBC panel Auto (Bld)on 12-26 Erythrocyte distribution width (RBC) [Ratio] 14.6 % Normal 11.5-15.0 [facility] Comment on above: Order Comment: Speci men Type: BLOOD SPECIMENOrdering Facility: [facility] Address: [address] [place] [address] Performed By: #### 5 8410-2 ####[facility]CLIA [id number] [place] [address] Hematocrit (Bld) [Volume fraction] 39.6 % Normal 36.0-46.0 [facility] Comment on above: Order Comment: Speci men Type: BLOOD SPECIMENOrdering Facility: [facility] Address: [address] [place] [address] Performed By: #### 5 8410-2 ####[facility] LABCLIA [id number] [place] [address] Hemoglobin (Bld) [Mass/Vol] 13.0 g/dL Normal 11.5-15.5 [facility] Comment on above: Order Comment: Speci men Type: BLOOD SPECIMENOrdering Facility: [facility] Address: [address] [place] [address] Performed By: #### 5 8410-2 ####[facility] LABCLIA [id number] [place] [address] MCH (RBC) [Entitic mass] 30.3 pg Normal 26.0-34.0 [facility] Comment on above: Order Comment: Speci men Type: BLOOD SPECIMENOrdering Facility: [facility] Address: [address] [place] [address] Performed By: #### 5 8410-2 ####[facility] LABCLIA [id number] [place] [address] MCHC (RBC) [Mass/Vol] 32.8 g/dL Normal 30.5-36.0 [facility] Comment on above: Order Comment: Speci men Type: BLOOD SPECIMENOrdering Facility: [facility] Address: [address] [place] [address] Performed By: #### 5 8410-2 ####[facility] LABCLIA [id number] [place] [address] MCV (RBC) [Entitic vol] 92.3 fL Normal 80.0-100.0 [facility] Comment on above: Order Comment: Speci men Type: BLOOD SPECIMENOrdering Facility: [facility] Address: [address] [place] [address] Performed By: #### 5 8410-2 ####[facility] LABCLIA [id number] [place] [address] Nucleated RBC (Bld) [#/Vol] 10*3/uL Normal <0.01 [facility] Comment on above: Order Comment: Speci men Type: BLOOD SPECIMENOrdering Facility: [facility] Address: [address] [place] [address] Performed By: #### 5 8410-2 ####[facility] LABCLIA [id number] [place] [address] Platelet mean volume (Bld) [Entitic vol] 9.8 fL Normal 9.0-12.7 [facility] Comment on above: Order Comment: Speci men Type: BLOOD SPECIMENOrdering Facility: [facility] Address: [address] [place] [address] Performed By: #### 5 8410-2 ####[facility] LABCLIA [id number] [place] [address] Platelets (Bld) [#/Vol] 309 10*3/uL Normal 150-400 [facility] Comment on above: Order Comment: Speci men Type: BLOOD SPECIMENOrdering Facility: [facility] Address: [address] [place] [address] Performed By: #### 5 8410-2 ####[facility] LABIA [id number] [place] [address] RBC (Bld) [#/Vol] 4.29 10*6/uL Normal 3.90-5.20 [facility] Comment on above: Order Comment: Speci men Type: BLOOD SPECIMENOrdering Facility: [facility] Address: [address] [place] [address] Performed By: #### 5 8410-2 ####[facility] LABIA [id number] [place] [address] WBC (Bld) [#/Vol] 14.93 10*3/uL High 3.70-11.00 [facility] Comment on above: Order Comment: Speci men Type: BLOOD SPECIMENOrdering Facility: [facility] Address: [address] [place], [place] [id number] Performed By: #### 5 8410-2 ####[facility] LABIA [id number] [place] [address] CNNURSEon 12-27-2023 [facility] Nurse Visit (HEMASA) JONES HALEY ([id number]) 1980 F Date Time Provider Department 12/27/23 12:00 PM [facility] NURSE DRE [place] During your visit today, we recorded the following information about you: Margret Cuenca MA 12/27/2023 11:46 AM Signed Patient Identification confirmed: yes. Injection given and documented on JUL per provider order. Margret Cuenca MA Allergies As of Date: 12/27/2023 Noted Allergy Reaction BACTRIM (SULFAMETHOXAZOLE) 05/31/2014 14 - Other: See Comments Comments: CAUSED ENLARGED LYMPH NODES CODEINE 05/31/2014 14 - Other: See Comments Comments: Make her feel Jittery. OTHERWISE, NO SOB/WHEEZING, and NO DYSPHAGIA, NO URTICARIA, NO ANGIOEDEMA CLINDAMYCIN 03/04/2022 16 - Unknown Comments: Patient states it was a long time ago and she did not have a severe reaction. She does not believe she is allergic, she just thinks she just experienced side effects. DOXYCYCLINE 01/19/2022 14 - Other: See Comments Comments: Patient states it was a long time ago and she did not have a severe reaction. She does not believe she is allergic, she just thinks she just experienced side effects. LATEX 05/31/2014 2 - Rash Comments: Patient states it was a long time ago and she did not have a severe reaction. She does not believe she is allergic, she just thinks she just experienced side effects. SULFAMETHOXAZOLE-TRIME THOPRIM 03/04/2022 7 - Swelling Comments: Patient states it was a long time ago and she did not have a severe reaction. She does not believe she is allergic, she just thinks she just experienced side effects. TRIMETHOPRIM 01/19/2022 14 - Other: See Comments Comments: Patient states it was a long time ago and she did not have a severe reaction. She does not believe she is allergic, she just thinks she just experienced side effects. 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 - azaTHIOprine (IMURAN) 50 mg tablet TAKE 3 TABLETS BY MOUTH DAILY WITH FOOD. HOLD IF ON ANTIBIOTICS OR ILL. - hydrOXYchloroQUINE (PLAQUENIL) 200 mg tablet TAKE 1 TAB TWICE A DAY WITH FOOD *SUNSCREEN WHILE OUTDOORS/OPHTHAMOLOGY EVERY 6-12 MONTHS WHILE ON* - belimumab (BENLYSTA) 200 mg/mL auto-injector Inject 200mg (1 pen) subcutaneously once weekly - predniSONE (DELTASONE) 10 mg tablet Take 10mg daily with food (no oral nsaids) - ergocalciferol 50,000 unit capsule (VITAMIN D2, DRISDOL) Take 1cap by mouth once a week with food. - topiramate (TOPAMAX) 25 mg tablet Take 1 tablet by mouth two times a day. - pregabalin (LYRICA) 75 mg capsule take 1 capsule by mouth three times a day - metoprolol tartrate, short acting, (LOPRESSOR) 50 mg tablet Take 50 mg by mouth twice daily. - CPAP/BIPAP/OTHER Type .CPAPSettings into a note to see current settings/supplies/DME information. - acetaminophen (TYLENOL) 500 mg tablet Take 1,000 mg by mouth. - aspirin 81 mg chewable tablet Take 81 mg by mouth. - ibuprofen (MOTRIN) 200 mg tablet Take 600 mg by mouth. 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*03/05/2021 Rash and nonspecific skin eruption [R21] 03/05/2021 Swelling of lymph nodes [R59.9] 03/05/2021 Chronic pain of toes of both feet [M79.674, M79*03/05/2021 Bilateral leg weakness [R29.898] 03/05/2021 Hair loss [L65.9] 03/05/2021 Family history of Crohn's disease [Z83.79] 03/05/2021 Long-term use of Plaquenil [Z79.899] 03/05/2021 Vitamin D deficiency [E55.9] 03/06/2021 Fibromyalgia [M79.7] 10/24/2021 Systemic lupus erythematosus (HCC) [M32.9] 10/24/2021 Megaloblastic anemia due to vitamin B12 deficie*03/04/2022 Obesity, Class II, BMI 35-39.9 [E66.9] 03/09/2022 03/10/2023 Discoid lupus erythematosus [L93.0] 02/14/2022 Obstructive sleep apnea syndrome [G47.33] 05/20/2022 Somnolence, daytime [R40.0] 05/20/2022 Long-term use of high-risk medication [Z79.899] 06/15/2022 CHRISTIAN positive [R76.8] 06/15/2022 Obesity, Class III, BMI >= 40 [E66.01] 09/07/2022 Bilateral wrist pain [M25.531, M25.532] 02/04/2023 Raynaud's disease without gangren (more content not included)... Normal [facility] CNOVSPon 12-27-2023 OVS Visit (SP) Office (HEMASA) JONES HALEY ([id number]) 1980 F Date Time Provider Department 12/27/23 11:30 AM NEDA NARAYANAN During your visit today, we recorded the following information about you: Temperature Pulse Respiration Blood pressure 97.7 degrees 89/minute 16/minute 98/68 Weight Height 124.8 kg 1.702 Neda Juarez PA-C 12/27/2023 12:45 PM Signed NAME: Jones Haley [facility] NO.: [id number] DATE OF SERVICE: December 27, 2023 (Liz) Some elements in this clinic note that are critical to medical decision making have been carefully reviewed and included from a prior clinic note dated: September 09, 2023 (Marquis) Referring Provider: Dr. Madelaine Ferris Additional Clinicians involved in Jones Haley's care: DIAGNOSIS: Multiple symptoms ASSESSMENT: 43 year old woman with generalized malaise for [...] is low, IgM and IgG both decreasing. was on heart monitor for frequent tachycardia and palpitations. Diagnosis of sleep apnea. This could address a lot of her symptoms but hasn't seemed to improve that much since May. PLAN: B12 shot today and every 4 weeks. Continue Folic acid. Follow up in 13 Weeks (virtual)- labs 1 week before. Request records from [facility] from PE/elevated d-dimer Frequent infections and low IGG level-discuss with dr. Joel - HPI: CASE HISTORY: Reverse Chronological Order Currently 2021 ongoing and generalized malaise with elevated IgM. 2020 - lymph node biopsy from neck negative for malignancy. 2019 - had a respiratory illness with dyspnea, possible bronchitis, no cough Updated Visit, December 27, 2023: Returns for follow up. Had labs last month that showed decreasing IGM and low folic acid. She had run out of her folic acid pills and wasn't on it, but is now. She was in the ER for chest pains and her d-dimer was high and CT was negative for PE. Was put on xarelto for 3 weeks. Repeat scan was negative and she was told to stop the xarelto. C. Diff history and currently being tested. Seeing infectious disease. Also has some rare infection in her breast that ID does not want to treat. Updated Visit, September 09, 2023: Virtual Visit [...] . She also states that she is st (more content not included)... Normal [facility] CNPNon 12-27-2023 [facility] Telephone (HEMASA) JONES HALEY ([id number]) 1980 F Date Time Provider Department 12/27/23 NEDA NARAYANAN During your visit today, we recorded the following information about you: Neda Narayanan PA-C 12/27/2023 12:45 PM Signed Please call and inform the patient that I reviewed her [facility] records and there is no evidence of a blood clot and she does not need to be on blood thinners. MARIELY Juarez Natalie, RN 12/27/2023 12:49 PM Signed Pt informed of MM message and denies any questions, needs or concerns at this time. Appointments verified. Bhargav Hamm RN Allergies As of Date: 12/27/2023 Noted Allergy Reaction BACTRIM (SULFAMETHOXAZOLE) 05/31/2014 14 - Other: See Comments Comments: CAUSED ENLARGED LYMPH NODES CODEINE 05/31/2014 14 - Other: See Comments Comments: Make her feel Jittery. OTHERWISE, NO SOB/WHEEZING, and NO DYSPHAGIA, NO URTICARIA, NO ANGIOEDEMA CLINDAMYCIN 03/04/2022 16 - Unknown Comments: Patient states it was a long time ago and she did not have a severe reaction. She does not believe she is allergic, she just thinks she just experienced side effects. DOXYCYCLINE 01/19/2022 14 - Other: See Comments Comments: Patient states it was a long time ago and she did not have a severe reaction. She does not believe she is allergic, she just thinks she just experienced side effects. LATEX 05/31/2014 2 - Rash Comments: Patient states it was a long time ago and she did not have a severe reaction. She does not believe she is allergic, she just thinks she just experienced side effects. SULFAMETHOXAZOLE-TRIME THOPRIM 03/04/2022 7 - Swelling Comments: Patient states it was a long time ago and she did not have a severe reaction. She does not believe she is allergic, she just thinks she just experienced side effects. TRIMETHOPRIM 01/19/2022 14 - Other: See Comments Comments: Patient states it was a long time ago and she did not have a severe reaction. She does not believe she is allergic, she just thinks she just experienced side effects. Date Reviewed: 12/27/2023 Reviewed by: Neda Narayanan PA-C - Fully Assessed Reason for Visit: Results [95] Prescriptions as of 12/27/2023 - folic acid 1 mg tablet Take 1 tablet by mouth once daily. - azaTHIOprine (IMURAN) 50 mg tablet TAKE 3 TABLETS BY MOUTH DAILY WITH FOOD. HOLD IF ON ANTIBIOTICS OR ILL. - hydrOXYchloroQUINE (PLAQUENIL) 200 mg tablet TAKE 1 TAB TWICE A DAY WITH FOOD *SUNSCREEN WHILE OUTDOORS/OPHTHAMOLOGY EVERY 6-12 MONTHS WHILE ON* - belimumab (BENLYSTA) 200 mg/mL auto-injector Inject 200mg (1 pen) subcutaneously once weekly - predniSONE (DELTASONE) 10 mg tablet Take 10mg daily with food (no oral nsaids) - ergocalciferol 50,000 unit capsule (VITAMIN D2, DRISDOL) Take 1cap by mouth once a week with food. - topiramate (TOPAMAX) 25 mg tablet Take 1 tablet by mouth two times a day. - pregabalin (LYRICA) 75 mg capsule take 1 capsule by mouth three times a day - metoprolol tartrate, short acting, (LOPRESSOR) 50 mg tablet Take 50 mg by mouth twice daily. - CPAP/BIPAP/OTHER Type .CPAPSettings into a note to see current settings/supplies/DME information. - acetaminophen (TYLENOL) 500 mg tablet Take 1,000 mg by mouth. - aspirin 81 mg chewable tablet Take 81 mg by mouth. - ibuprofen (MOTRIN) 200 mg tablet Take 600 mg by mouth. 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*03/05/2021 Rash and nonspecific skin eruption [R21] 03/05/2021 Swelling of lymph nodes [R59.9] 03/05/2021 Chronic pain of toes of both feet [M79.674, M79*03/05/2021 Bilateral leg weakness [R29.898] 03/05/2021 Hair loss [L65.9] 03/05/2021 Family history of Crohn's disease [Z83.79] 03/05/2021 Long-term use of Plaquenil [Z79.899] 03/05/2021 Vitamin D deficiency [E55.9] 03/06/2021 Fibromyalgia [M79.7] 10/24/2021 Systemic lupus erythematosus (HCC) [M32.9] 10/24/2021 Megaloblastic anemia due to vitamin B12 deficie*03/04/2022 Obesity, Class II, BMI 35-39.9 [E66.9] 03/09/2022 03/10/2023 Discoid lupus erythematosus [L93.0] 02/14/2022 Obstructive sleep apnea syndrome [G47.33] 05/20/2022 Somnolence, daytime [R40.0] 05/20/2022 Long-term use of high-risk medication [Z79.899] 06/15/2022 CHRISTIAN positive [R76.8] 06/15/2022 Obesity, Class III, BMI >= 40 [E66.01] 09/07/2022 Bilateral wris (more content not included)... Normal [facility] CRP SerPl-mCncon 12-27-2023 CRP [Mass/Vol] mg/L Normal <0.9 [facility] Comment on above: Order Comment: Speci men Type: BLOOD SPECIMENOrdering Facility: [facility] Address: [address] [place] [address] Performed By: #### 1 988-5 ####[facility] LABCLIA [id number] [address] [facility] Comprehensive metabolic 2000 panelon 12-27-2023 Albumin [Mass/Vol] 4.2 g/dL Normal 3.9-4.9 [facility] Comment on above: Order Comment: Speci men Type: BLOOD SPECIMENOrdering Facility: [facility] Address: [address] [place] [address] Performed By: #### 2 4323-8 ####[facility] LABCLIA [id number] [place] [address] ALP [Catalytic activity/Vol] 77 U/L Normal 34-123 [facility] Comment on above: Order Comment: Speci men Type: BLOOD SPECIMENOrdering Facility: [facility] Address: [address] [place] [address] Performed By: #### 2 4323-8 ####[facility] LABCLIA [id number] [place] [address] ALT [Catalytic activity/Vol] 23 U/L Normal 7-38 [facility] Comment on above: Order Comment: Speci men Type: BLOOD SPECIMENOrdering Facility: [facility] Address: [address] [place] [address] Performed By: #### 2 4323-8 ####[facility] LABCLIA [id number] [place] [address] Anion gap [Moles/Vol] 14 mmol/L Normal 8-15 [facility] Comment on above: Order Comment: Speci men Type: BLOOD SPECIMENOrdering Facility: [facility] Address: [address] [place] [address] Performed By: #### 2 4323-8 ####[facility] LABCLIA [id number] [place] [address] AST [Catalytic activity/Vol] 13 U/L Normal 13-35 [facility] Comment on above: Order Comment: Speci men Type: BLOOD SPECIMENOrdering Facility: [facility] Address: [address] [place] [address] Performed By: #### 2 4323-8 ####[facility] LABCLIA [id number] [place] [address] Bilirubin [Mass/Vol] mg/dL Low 0.2-1.3 [facility] Comment on above: Order Comment: Speci men Type: BLOOD SPECIMENOrdering Facility: [facility] Address: [address] [place] [address] Performed By: #### 2 4323-8 ####[facility] LABCLIA [id number] [place] [address] Calcium [Mass/Vol] 10.0 mg/dL Normal 8.5-10.2 [facility] Comment on above: Order Comment: Speci men Type: BLOOD SPECIMENOrdering Facility: [facility] Address: [address] [place] [address] Performed By: #### 2 4323-8 ####[facility] LABCLIA [id number] [place] [address] Chloride [Moles/Vol] 107 mmol/L Normal 98-107 [facility] Comment on above: Order Comment: Speci men Type: BLOOD SPECIMENOrdering Facility: [facility] Address: [address] [place] [address] Performed By: #### 2 4323-8 ####[facility] LABCLIA [id number] [place] [address] CO2 [Moles/Vol] 23 mmol/L Normal 22-30 [facility] Comment on above: Order Comment: Speci men Type: BLOOD SPECIMENOrdering Facility: [facility] Address: [address] [place] [address] Performed By: #### 2 4323-8 ####[facility] LABCLIA [id number] [place] [address] Creatinine [Mass/Vol] 0.70 mg/dL Normal 0.58-0.96 [facility] Comment on above: Order Comment: Speci men Type: BLOOD SPECIMENOrdering Facility: [facility] Address: [address] [place] [address] Performed By: #### 2 4323-8 ####[facility] LABCLIA [id number] [place] [address] Creatinine and Glomerular filtration rate.predicted panel (S/P/Bld) 110 mL/min/1.73m??? Normal >=60 [facility] Comment on above: Order Comment: Speci men Type: BLOOD SPECIMENOrdering Facility: [facility] Address: [address] [place] [address] Result Comment: Erin mated Glomerular Filtration Rate [...] actual GFR. Performed By: #### 2 4323-8 ####[facility] LABCLIA [id number] [place] [address] Glucose [Mass/Vol] 120 mg/dL High 74-99 [facility] Comment on above: Order Comment: Speci men Type: BLOOD SPECIMENOrdering Facility: [facility] Address: [address] [place], [place] [address] Result Comment: The [place] [employer] (ADA) provides guidance for cutoff values for fasting glucose and random glucose. The ADA defines fasting as no caloric intake for at least 8 hours. Fasting plasma glucose results between 100 to 125 mg/dL indicate increased risk for diabetes (prediabetes). Fasting plasma glucose results greater than or equal to 126 mg/dL meet the criteria for diagnosis of diabetes. In the absence of unequivocal hyperglycemia, results should be confirmed by repeat testing. In a patient with classic symptoms of hyperglycemia or hyperglycemic crisis, random plasma glucose results greater than or equal to 200 mg/dL meet the criteria for diagnosis of diabetes. Reference: Standards of Medical Care in Diabetes 2016, [place] [employer]. Diabetes Care. 2016.39(Suppl 1). Performed By: #### 2 4323-8 ####[facility] LABCLIA [id number] [place] [address] Potassium [Moles/Vol] 4.1 mmol/L Normal 3.7-5.1 [facility] Comment on above: Order Comment: Speci men Type: BLOOD SPECIMENOrdering Facility: [facility] Address: [address] [place] [address] Performed By: #### 2 4323-8 ####[facility] LABCLIA [id number] [place] [address] Protein [Mass/Vol] 7.1 g/dL Normal 6.3-8.0 [facility] Comment on above: Order Comment: Speci men Type: BLOOD SPECIMENOrdering Facility: [facility] Address: [address] [place] [address] Performed By: #### 2 4323-8 ####[facility] LABCLIA [id number] [place] [address] Sodium [Moles/Vol] 144 mmol/L Normal 136-144 [facility] Comment on above: Order Comment: Speci men Type: BLOOD SPECIMENOrdering Facility: [facility] Address: [address] [place] [address] Performed By: #### 2 4323-8 ####[facility] LABCLIA [id number] [place] [address] Urea nitrogen [Mass/Vol] 13 mg/dL Normal 7-21 [facility] Comment on above: Order Comment: Speci men Type: BLOOD SPECIMENOrdering Facility: [facility] Address: [address] [id number] Performed By: #### 2 4323-8 ####[facility] LABCLIA [id number] [place] [address] ESR Westergren method (Bld) [Velocity]on 12-27-2023 ESR (Bld) [Velocity] 31 mm/h High 0-20 [facility] Comment on above: Order Comment: Speci men Type: BLOOD SPECIMEN [facility] Address: [address] [place] [address] Performed By: #### 5 7021-8 #### [facility] LAB CLIA [id number] [place] [address] MR LUMBAR SPINE WO CONTRASTo n 12-21-2023 MR LUMBAR SPINE WO CONTRAST EXAM: MR LUMBAR SPINE WO CONTRAST History: Low back pain with radiculopathy. L5 radiculopathy. Technique: Multiplanar multisequence MRI of the lumbar spine was obtained without intravenous contrast. Comparison: Findings: The conus medullaris ends normally. The alignment of the lumbar spine is anatomic. The vertebral body heights are well maintained. There is no aggressive bone marrow signal abnormality. 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 Intervertebral disc heights are maintained. L1-L2: No significant disc bulge or high-grade spinal canal or neuroforaminal stenosis. L2-L3: No significant disc bulge or high-grade spinal canal or neuroforaminal stenosis. L3-L4: No significant disc bulge or high-grade spinal canal or neuroforaminal stenosis. L4-L5: No significant disc bulge. Mild facet arthropathy. No neural foraminal or spinal canal stenosis. L5-S1: Small disc bulge. Mild right and moderate left facet arthropathy. Mild right and moderate left neural foraminal stenosis. No spinal canal stenosis. Visualized paravertebral soft tissues appear within normal limits. IMPRESSION: Degenerative changes of the lumbar spine as detailed. ELECTRONICALLY SIGNED BY: Victor Manuel Flynn, DO Normal Not Available CNNURSEon 11-29-2023 CNNURSE Nurse Visit (HEMASA) JONES HALEY ([id number]) 1980 F Date Time Provider Department 11/29/23 2:15 PM [facility] NURSE DRE [place] During your visit today, we recorded the following information about you: Temperature Pulse Respiration Blood pressure 97.6 degrees 73/minute 16/minute 83/51 Stacy Gutiérrez MA 11/29/2023 1:49 PM Signed Patient Identification confirmed: yes. Injection given and documented on JUL per provider order. Stacy Gutiérrez MA Allergies As of Date: 11/29/2023 Noted Allergy Reaction BACTRIM (SULFAMETHOXAZOLE) 05/31/2014 14 - Other: See Comments Comments: CAUSED ENLARGED LYMPH NODES CODEINE 05/31/2014 14 - Other: See Comments Comments: Make her feel Jittery. OTHERWISE, NO SOB/WHEEZING, and NO DYSPHAGIA, NO URTICARIA, NO ANGIOEDEMA CLINDAMYCIN 03/04/2022 16 - Unknown Comments: Patient states it was a long time ago and she did not have a severe reaction. She does not believe she is allergic, she just thinks she just experienced side effects. DOXYCYCLINE 01/19/2022 14 - Other: See Comments Comments: Patient states it was a long time ago and she did not have a severe reaction. She does not believe she is allergic, she just thinks she just experienced side effects. LATEX 05/31/2014 2 - Rash Comments: Patient states it was a long time ago and she did not have a severe reaction. She does not believe she is allergic, she just thinks she just experienced side effects. SULFAMETHOXAZOLE-TRIME THOPRIM 03/04/2022 7 - Swelling Comments: Patient states it was a long time ago and she did not have a severe reaction. She does not believe she is allergic, she just thinks she just experienced side effects. TRIMETHOPRIM 01/19/2022 14 - Other: See Comments Comments: Patient states it was a long time ago and she did not have a severe reaction. She does not believe she is allergic, she just thinks she just experienced side effects. 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 - azaTHIOprine (IMURAN) 50 mg tablet TAKE 3 TABLETS BY MOUTH DAILY WITH FOOD. HOLD IF ON ANTIBIOTICS OR ILL. - hydrOXYchloroQUINE (PLAQUENIL) 200 mg tablet TAKE 1 TAB TWICE A DAY WITH FOOD *SUNSCREEN WHILE OUTDOORS/OPHTHAMOLOGY EVERY 6-12 MONTHS WHILE ON* - belimumab (BENLYSTA) 200 mg/mL auto-injector Inject 200mg (1 pen) subcutaneously once weekly - predniSONE (DELTASONE) 10 mg tablet Take 10mg daily with food (no oral nsaids) - ergocalciferol 50,000 unit capsule (VITAMIN D2, DRISDOL) Take 1cap by mouth once a week with food. - topiramate (TOPAMAX) 25 mg tablet Take 1 tablet by mouth two times a day. - pregabalin (LYRICA) 75 mg capsule take 1 capsule by mouth three times a day - metoprolol tartrate, short acting, (LOPRESSOR) 50 mg tablet Take 50 mg by mouth twice daily. - CPAP/BIPAP/OTHER Type .CPAPSettings into a note to see current settings/supplies/DME information. - acetaminophen (TYLENOL) 500 mg tablet Take 1,000 mg by mouth. - aspirin 81 mg chewable tablet Take 81 mg by mouth. - ibuprofen (MOTRIN) 200 mg tablet Take 600 mg by mouth. 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*03/05/2021 Rash and nonspecific skin eruption [R21] 03/05/2021 Swelling of lymph nodes [R59.9] 03/05/2021 Chronic pain of toes of both feet [M79.674, M79*03/05/2021 Bilateral leg weakness [R29.898] 03/05/2021 Hair loss [L65.9] 03/05/2021 Family history of Crohn's disease [Z83.79] 03/05/2021 Long-term use of Plaquenil [Z79.899] 03/05/2021 Vitamin D deficiency [E55.9] 03/06/2021 Fibromyalgia [M79.7] 10/24/2021 Systemic lupus erythematosus (HCC) [M32.9] 10/24/2021 Megaloblastic anemia due to vitamin B12 deficie*03/04/2022 Obesity, Class II, BMI 35-39.9 [E66.9] 03/09/2022 03/10/2023 Discoid lupus erythematosus [L93.0] 02/14/2022 Obstructive sleep apnea syndrome [G47.33] 05/20/2022 Somnolence, daytime [R40.0] 05/20/2022 Long-term use of high-risk medication [Z79.899] 06/15/2022 CHRISTIAN positive [R76.8] 06/15/2022 Obesity, Class III, BMI >= 40 [E66.01] 09/08/19 (more content not included)... Normal [facility] CBC W Auto Differential pane l (Bld)on 11-24-2023 Basophils (Bld) [#/Vol] 0.06 10*3/uL Normal <0.11 [facility] Comment on above: Order Comment: Speci men Type: BLOOD SPECIMENOrdering Facility: [facility] Address: [address] [place] [address] Performed By: #### 5 7021-8 ####[facility] LABCLIA [id number] [place] [address] Basophils/100 WBC (Bld) 0.6 % Normal [facility] Comment on above: Order Comment: Speci men Type: BLOOD SPECIMENOrdering Facility: [facility] Address: [address] [place] [address] Performed By: #### 5 7021-8 ####[facility] LABCLIA [id number] [place] [address] Differential cell count method Nom (Bld) Auto Normal [facility] Comment on above: Order Comment: Speci men Type: BLOOD SPECIMENOrdering Facility: [facility] Address: [address] [place] [address] Performed By: #### 5 7021-8 ####[facility] LABCLIA [id number] [place] [address] Eosinophils (Bld) [#/Vol] 0.04 10*3/uL Normal <0.46 [facility] Comment on above: Order Comment: Speci men Type: BLOOD SPECIMENOrdering Facility: [facility] Address: [address] [place] [address] Performed By: #### 5 7021-8 ####[facility] LABCLIA [id number] [place] [address] Eosinophils/100 WBC (Bld) 0.4 % Normal [facility] Comment on above: Order Comment: Speci men Type: BLOOD SPECIMENOrdering Facility: [facility] Address: [address] [place] [address] Performed By: #### 5 7021-8 ####[facility] LABCLIA [id number] [place] [address] Erythrocyte distribution width (RBC) [Ratio] 14.8 % Normal 11.5-15.0 [facility] Comment on above: Order Comment: Speci men Type: BLOOD SPECIMENOrdering Facility: [facility] Address: [address] [place] [address] Performed By: #### 5 7021-8 ####[facility] LABCLIA [id number] [place] [address] Hematocrit (Bld) [Volume fraction] 40.6 % Normal 36.0-46.0 [facility] Comment on above: Order Comment: Speci men Type: BLOOD SPECIMENOrdering Facility: [facility] Address: [address] [place] [address] Performed By: #### 5 7021-8 ####[facility] LABCLIA [id number] [place] [address] Hemoglobin (Bld) [Mass/Vol] 13.0 g/dL Normal 11.5-15.5 [facility] Comment on above: Order Comment: Speci men Type: BLOOD SPECIMENOrdering Facility: [facility] Address: [address] [place] [address] Performed By: #### 5 7021-8 ####[facility] LABCLIA [id number] [place] [address] Immature granulocytes (Bld) [#/Vol] 0.05 10*3/uL Normal <0.10 [facility] Comment on above: Order Comment: Speci men Type: BLOOD SPECIMENOrdering Facility: [facility] Address: [address] [place] [address] Performed By: #### 5 7021-8 ####[facility] LABCLIA [id number] [place] [address] Immature granulocytes/100 WBC (Bld) 0.5 % Normal [facility] Comment on above: Order Comment: Speci men Type: BLOOD SPECIMENOrdering Facility: [facility] Address: [address] [place] [address] Performed By: #### 5 7021-8 ####[facility] LABCLIA [id number] [place] [address] Lymphocytes (Bld) [#/Vol] 1.87 10*3/uL Normal 1.00-4.00 [facility] Comment on above: Order Comment: Speci men Type: BLOOD SPECIMENOrdering Facility: [facility] Address: [address] [place] [address] Performed By: #### 5 7021-8 ####[facility] LABCLIA [id number] [place] [address] Lymphocytes/100 WBC (Bld) 17.5 % Normal [facility] Comment on above: Order Comment: Speci men Type: BLOOD SPECIMENOrdering Facility: [facility] Address: [address] [place] [address] Performed By: #### 5 7021-8 ####[facility] LABCLIA [id number] [place] [address] MCH (RBC) [Entitic mass] 29.3 pg Normal 26.0-34.0 [facility] Comment on above: Order Comment: Speci men Type: BLOOD SPECIMENOrdering Facility: [facility] Address: [address] [place] [address] Performed By: #### 5 7021-8 ####[facility] LABCLIA [id number] [place] [address] MCHC (RBC) [Mass/Vol] 32.0 g/dL Normal 30.5-36.0 [facility] Comment on above: Order Comment: Speci men Type: BLOOD SPECIMENOrdering Facility: [facility] Address: [address] [place] [address] Performed By: #### 5 7021-8 ####[facility] LABCLIA [id number] [place] [address] MCV (RBC) [Entitic vol] 91.4 fL Normal 80.0-100.0 [facility] Comment on above: Order Comment: Speci men Type: BLOOD SPECIMENOrdering Facility: [facility] Address: [address] [place] [address] Performed By: #### 5 7021-8 ####[facility] LABCLIA [id number] [place] [address] Monocytes (Bld) [#/Vol] 0.39 10*3/uL Normal <0.87 [facility] Comment on above: Order Comment: Speci men Type: BLOOD SPECIMENOrdering Facility: [facility] Address: [address] [place] [address] Performed By: #### 5 7021-8 ####[facility] LABCLIA [id number] [place] [address] Monocytes/100 WBC (Bld) 3.6 % Normal [facility] Comment on above: Order Comment: Speci men Type: BLOOD SPECIMENOrdering Facility: [facility] Address: [address] [place] [address] Performed By: #### 5 7021-8 ####[facility] LABCLIA [id number] [place] [address] Neutrophils (Bld) [#/Vol] 8.28 10*3/uL High 1.45-7.50 [facility] Comment on above: Order Comment: Speci men Type: BLOOD SPECIMENOrdering Facility: [facility] Address: [address] [place] [address] Performed By: #### 5 7021-8 ####[facility] LABCLIA [id number] [place] [address] Neutrophils/100 WBC (Bld) 77.4 % Normal [facility] Comment on above: Order Comment: Speci men Type: BLOOD SPECIMENOrdering Facility: [facility] Address: [address] [place] [address] Performed By: #### 5 7021-8 ####[facility] LABCLIA [id number] [place] [address] Nucleated RBC (Bld) [#/Vol] 10*3/uL Normal <0.01 [facility] Comment on above: Order Comment: Speci men Type: BLOOD SPECIMENOrdering Facility: [facility] Address: [address] [place] [address] Performed By: #### 5 7021-8 ####[facility] LABCLIA [id number] [place] [address] Nucleated RBC/100 WBC (Bld) [Ratio] 0.0 /100 WBC Normal [facility] Comment on above: Order Comment: Speci men Type: BLOOD SPECIMENOrdering Facility: [facility] Address: [address] [place] [address] Performed By: #### 5 7021-8 ####[facility] LABCLIA [id number] [place] [address] Platelet mean volume (Bld) [Entitic vol] 9.6 fL Normal 9.0-12.7 [facility] Comment on above: Order Comment: Speci men Type: BLOOD SPECIMENOrdering Facility: [facility] Address: [address] [place] [address] Performed By: #### 5 7021-8 ####[facility] LABCLIA [id number] [place] [address] Platelets (Bld) [#/Vol] 271 10*3/uL Normal 150-400 [facility] Comment on above: Order Comment: Speci men Type: BLOOD SPECIMENOrdering Facility: [facility] Address: [address] [place] [address] Performed By: #### 5 7021-8 ####[facility] LABCLIA [id number] [place] [address] RBC (Bld) [#/Vol] 4.44 10*6/uL Normal 3.90-5.20 [facility] Comment on above: Order Comment: Speci men Type: BLOOD SPECIMENOrdering Facility: [facility] Address: [address] [place] [address] Performed By: #### 5 7021-8 ####[facility] LABCLIA [id number] [place] [address] WBC (Bld) [#/Vol] 10.69 10*3/uL Normal 3.70-11.00 [facility] Comment on above: Order Comment: Speci men Type: BLOOD SPECIMENOrdering Facility: [facility] Address: [address] [place] [address] Performed By: #### 5 7021-8 ####[facility] LABCLIA [id number] [place] [address] Comprehensive metabolic 2000 panelon 11-24-2023 Albumin [Mass/Vol] 4.1 g/dL Normal 3.9-4.9 [facility] Comment on above: Order Comment: Speci men Type: BLOOD SPECIMEN [facility] Address: [address] [place] [address] Performed By: #### 4 537-7 #### [facility] CLIA [id number] [address] [place] [address] [place] ALP [Catalytic activity/Vol] 69 U/L Normal 34-123 [facility] Comment on above: Order Comment: Speci men Type: BLOOD SPECIMEN [facility] Address: [address] [place] [address] Performed By: #### 4 537-7 #### [facility] CLIA [id number] [address] [place] [address] [place] ALT [Catalytic activity/Vol] 24 U/L Normal 7-38 [facility] Comment on above: Order Comment: Speci men Type: BLOOD SPECIMEN [facility] Address: [address] [place] [address] Performed By: #### 4 537-7 #### [facility] CLIA [id number] [address] [place] [address] [place] Anion gap [Moles/Vol] 9 mmol/L Normal 8-15 [facility] Comment on above: Order Comment: Speci men Type: BLOOD SPECIMEN [facility] Address: [address] [place] [address] Performed By: #### 4 537-7 #### [facility] CLIA [id number] [address] [place] [address] [place] AST [Catalytic activity/Vol] 13 U/L Normal 13-35 [facility] Comment on above: Order Comment: Speci men Type: BLOOD SPECIMEN [facility] Address: [address] [place] [address] Performed By: #### 4 537-7 #### [facility] CLIA [id number] [address] [place] [address] [place] Bilirubin [Mass/Vol] 0.2 mg/dL Normal 0.2-1.3 [facility] Comment on above: Order Comment: Speci men Type: BLOOD SPECIMEN [facility] Address: [address] [place] [address] Performed By: #### 4 537-7 #### [facility] CLIA [id number] [address] [place] [address] [place] Calcium [Mass/Vol] 9.9 mg/dL Normal 8.5-10.2 [facility] Comment on above: Order Comment: Speci men Type: BLOOD SPECIMEN [facility] Address: [address] [place] [address] Performed By: #### 4 537-7 #### [facility] CLIA [id number] [address] [place] [address] [place] Chloride [Moles/Vol] 104 mmol/L Normal 98-107 [facility] Comment on above: Order Comment: Speci men Type: BLOOD SPECIMEN [facility] Address: [address] [place] [address] Performed By: #### 4 537-7 #### [facility] CLIA [id number] [address] [place] [address] [place] CO2 [Moles/Vol] 24 mmol/L Normal 22-30 [facility] Comment on above: Order Comment: Speci men Type: BLOOD SPECIMEN [facility] Address: [address] [place] [address] Performed By: #### 4 537-7 #### [facility] CLIA [id number] [address] [place] [address] [place] Creatinine [Mass/Vol] 0.74 mg/dL Normal 0.58-0.96 [facility] Comment on above: Order Comment: Speci men Type: BLOOD SPECIMEN [facility] Address: [address] [place] [address] Performed By: #### 4 537-7 #### [facility] CLIA [id number] [address] [place] [address] [place] Creatinine and Glomerular filtration rate.predicted panel (S/P/Bld) 103 mL/min/1.73m??? Normal >=60 [facility] Comment on above: Order Comment: Speci men Type: BLOOD SPECIMEN [facility] Address: [address] [place] [address] Result Comment: Erin mated Glomerular Filtration Rate [...] accurately reflect actual GFR. Performed By: #### 4 537-7 #### [facility] CLIA [id number] [address] [place] [address] [place] Glucose [Mass/Vol] 185 mg/dL High 74-99 [facility] Comment on above: Order Comment: Speci men Type: BLOOD SPECIMEN [facility] Address: [address] [place] [address] Result Comment: The [place] [employer] (ADA) provides guidance for cutoff values for fasting glucose and random glucose. The ADA defines fasting as no caloric intake for at least 8 hours. Fasting plasma glucose results between 100 to 125 mg/dL indicate increased risk for diabetes (prediabetes). Fasting plasma glucose results greater than or equal to 126 mg/dL meet the criteria for diagnosis of diabetes. In the absence of unequivocal hyperglycemia, results should be confirmed by repeat testing. In a patient with classic symptoms of hyperglycemia or hyperglycemic crisis, random plasma glucose results greater than or equal to 200 mg/dL meet the criteria for diagnosis of diabetes. Reference: Standards of Medical Care in Diabetes 2016, [place] [employer]. Diabetes Care. 2016.39(Suppl 1). Performed By: #### 4 537-7 #### [facility] CLIA [id number] [address] [place] [address] [place] Potassium [Moles/Vol] 4.2 mmol/L Normal 3.7-5.1 [facility] Comment on above: Order Comment: Semaj cortés Type: BLOOD SPECIMEN [facility] Address: [address] [place] [address] Performed By: #### 4 537-7 #### [facility] CLIA [id number] [address] [place] [address] [place] Protein [Mass/Vol] 7.1 g/dL Normal 6.3-8.0 [facility] Comment on above: Order Comment: Leolai men Type: BLOOD SPECIMEN [facility] Address: [address] [place] [address] Performed By: #### 4 537-7 #### [facility] CLIA [id number] [address] [place] [address] [place] Sodium [Moles/Vol] 137 mmol/L Normal 136-144 [facility] Comment on above: Order Comment: Speci men Type: BLOOD SPECIMEN [facility] Address: [address] [place] [address] Performed By: #### 4 537-7 #### [facility] CLIA [id number] [address] [place] [address] [place] Urea nitrogen [Mass/Vol] 12 mg/dL Normal 7-21 [facility] Comment on above: Order Comment: Speci men Type: BLOOD SPECIMEN [facility] Address: [address] [place] [address] Performed By: #### 4 537-7 #### [facility] CLIA [id number] [address] [place] [address] [place] ESR Westergren method (Bld) [Velocity]on 11-24-2023 ESR (Bld) [Velocity] 32 mm/h High 0-20 [facility] Comment on above: Order Comment: Speci men Type: BLOOD SPECIMEN [facility] Address: [address] [place] [address] Performed By: #### I NSLAB #### [facility] CLIA [id number] [address] [place] [address] [place] Ferritin SerPl-mCncon 2023 Ferritin [Mass/Vol] 31.5 ng/mL Normal 14.7-205.1 [facility] Comment on above: Order Comment: Speci men Type: BLOOD SPECIMEN [facility] Address: [address] [place] [address] Performed By: #### 2 276-4, 2284-8, 71266-5, 2132-9 #### [facility] CLIA [id number] [address] [place] [address] [place] Folate SerPl-mCncon 11-24-19 24 Folate [Mass/Vol] 3.0 ng/mL Low >4.7 [facility] Comment on above: Order Comment: Speci men Type: BLOOD SPECIMEN [facility] Address: [address] [place] [address] Performed By: #### 2 276-4, 2284-8, 45908-2, 2132-9 #### [facility] CLIA [id number] [address] [place] [address] [place] IgA SerPl-mCncon 11-24-2023 IgA [Mass/Vol] 162 mg/dL Normal 70-400 [facility] Comment on above: Order Comment: Speci men Type: BLOOD SPECIMEN [facility] Address: [address] [place] [address] Performed By: #### I NSLAB #### [facility] CLIA [id number] [address] [place] [address] [place] IgE SerPl-aCncon 11-24-2023 IgE Qn 5.8 kU/l Normal <114.0 [facility] Comment on above: Order Comment: Speci men Type: BLOOD SPECIMENOrdering Facility: [facility] Address: [address] [place] [address] Performed By: #### 1 9113-0 ####[facility] LABCLIA [id number] [place] [address] [place] IgG SerPl-mCncon 11-24-2023 IgG [Mass/Vol] 526 mg/dL Low 700-1600 [facility] Comment on above: Order Comment: Speci men Type: BLOOD SPECIMEN [facility] Address: [address] [place] [address] Performed By: #### I NSLAB #### [facility] CLIA [id number] [address] [place] [address] [place] IgM SerPl-mCncon 11-24-2023 IgM [Mass/Vol] 389 mg/dL High 40-230 [facility] Comment on above: Order Comment: Speci men Type: BLOOD SPECIMEN [facility] Address: [address] [place] [address] Performed By: #### I NSLAB #### [facility] CLIA [id number] [address] [place] [address] [place] Iron and Iron binding capaci ty panelon 11-24-2023 Iron [Mass/Vol] 65 ug/dL Normal 41-186 [facility] Comment on above: Order Comment: Speci men Type: BLOOD SPECIMEN [facility] Address: [address] [place] [address] Performed By: #### 2 276-4, 2284-8, 76802-9, 9 #### [facility] CLIA [id number] [address] [place] [address] [place] Iron binding capacity [Mass/Vol] 373 ug/dL Normal 232-386 [facility] Comment on above: Order Comment: Speci men Type: BLOOD SPECIMEN [facility] Address: [address] [place] [address] Performed By: #### 2 276-4, 2284-8, 50696-7, 9 #### [facility] CLIA [id number] [address] [place] [address] [place] Iron/TIBC [Molar ratio] 17.4 % Normal 15.0-57.0 [facility] Comment on above: Order Comment: Speci men Type: BLOOD SPECIMEN [facility] Address: [address] [place] [address] Performed By: #### 2 276-4, 2284-8, 37848-9, 9 #### [facility] CLIA [id number] [address] [place] [address] [place] Vit B12 SerPl-mCncon 024 Cobalamin (Vitamin B12) [Mass/Vol] 633 pg/mL Normal 232-1245 [facility] Comment on above: Order Comment: Speci men Type: BLOOD SPECIMEN [facility] Address: [address] [place] [address] Performed By: #### 2 276-4, 2284-8, 20746-6, 2132-9 #### [facility] CLIA [id number] [address] [place] [address] [place] CNNURSEon 10-27-2023 CNNURSE Nurse Visit (HEMASA) JONES HALEY ([id number]) 1980 F Date Time Provider Department 10/27/23 2:15 PM [facility] NURSE DRE MARSHALL HEMAIMEE During your visit today, we recorded the following information about you: Temperature Pulse Respiration Blood pressure 97 degrees 97/minute 18/minute 110/72 Margret Cuenca MA 10/27/2023 2:45 PM Signed Patient Identification confirmed: yes. Injection given and documented on JUL per provider order. Margret Cuenca MA Allergies As of Date: 10/27/2023 Noted Allergy Reaction BACTRIM (SULFAMETHOXAZOLE) 05/31/2014 14 - Other: See Comments Comments: CAUSED ENLARGED LYMPH NODES CODEINE 05/31/2014 14 - Other: See Comments Comments: Make her feel Jittery. OTHERWISE, NO SOB/WHEEZING, and NO DYSPHAGIA, NO URTICARIA, NO ANGIOEDEMA CLINDAMYCIN 03/04/2022 16 - Unknown Comments: Patient states it was a long time ago and she did not have a severe reaction. She does not believe she is allergic, she just thinks she just experienced side effects. DOXYCYCLINE 01/19/2022 14 - Other: See Comments Comments: Patient states it was a long time ago and she did not have a severe reaction. She does not believe she is allergic, she just thinks she just experienced side effects. LATEX 05/31/2014 2 - Rash Comments: Patient states it was a long time ago and she did not have a severe reaction. She does not believe she is allergic, she just thinks she just experienced side effects. SULFAMETHOXAZOLE-TRIME THOPRIM 03/04/2022 7 - Swelling Comments: Patient states it was a long time ago and she did not have a severe reaction. She does not believe she is allergic, she just thinks she just experienced side effects. TRIMETHOPRIM 01/19/2022 14 - Other: See Comments Comments: Patient states it was a long time ago and she did not have a severe reaction. She does not believe she is allergic, she just thinks she just experienced side effects. 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 - azaTHIOprine (IMURAN) 50 mg tablet TAKE 3 TABLETS BY MOUTH DAILY WITH FOOD. HOLD IF ON ANTIBIOTICS OR ILL. - topiramate (TOPAMAX) 25 mg tablet Take 1 tablet by mouth two times a day. - pregabalin (LYRICA) 75 mg capsule take 1 capsule by mouth three times a day - folic acid 1 mg tablet TAKE 1 TABLET BY MOUTH EVERY DAY - metoprolol tartrate, short acting, (LOPRESSOR) 50 mg tablet Take 50 mg by mouth twice daily. - CPAP/BIPAP/OTHER Type .CPAPSettings into a note to see current settings/supplies/DME information. - acetaminophen (TYLENOL) 500 mg tablet Take 1,000 mg by mouth. - aspirin 81 mg chewable tablet Take 81 mg by mouth. - ibuprofen (MOTRIN) 200 mg tablet Take 600 mg by mouth. Facility-Administered Medications as of 10/27/2023 - cyanocobalamin 1,000 mcg injection (Completed) Problem List As Of Date 10/27/2023 Noted Resolved Vitamin B12 deficiency [E53.8] 05/31/2014 Obesity (BMI 30-39.9) [E66.9] 05/31/2014 07/06/2016 Hyperlipidemia [E78.5] 05/31/2014 Ataxia [R27.0] 05/31/2014 Chronic bilateral low back pain with bilateral *05/31/2014 Depression, recurrent (HCC) [F33.9] Chronic pain syndrome [G89.4] Pain, hip [M25.559] Obesity [E66.9] Tobacco use disorder [F17.200] Bilateral sacroiliitis (HCC) [M46.1] 09/13/2015 Elevated sed rate [R70.0] 03/05/2021 High total serum IgM [R76.8] 03/05/2021 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*03/05/2021 Rash and nonspecific skin eruption [R21] 03/05/2021 Swelling of lymph nodes [R59.9] 03/05/2021 Chronic pain of toes of both feet [M79.674, M79*03/05/2021 Bilateral leg weakness [R29.898] 03/05/2021 Hair loss [L65.9] 03/05/2021 Family history of Crohn's disease [Z83.79] 03/05/2021 Long-term use of Plaquenil [Z79.899] 03/05/2021 Vitamin D deficiency [E55.9] 03/06/2021 Fibromyalgia [M79.7] 10/24/2021 Systemic lupus erythematosus (HCC) [M32.9] 10/24/2021 Megaloblastic anemia due to vitamin B12 deficie*03/04/2022 Obesity, Class II, BMI 35-39.9 [E66.9] 03/09/2022 03/10/2023 Discoid lupus erythematosus [L93.0] 02/14/2022 Obstructive sleep apnea syndrome [G47.33] 05/20/2022 Somnolence, daytime [R40.0] 05/20/2022 Long-term use of high-risk medication [Z79.899] 06/15/2022 (more content not included)... Normal [facility] CNNURSEon 09-30-2023 CNNURSE Nurse Visit (HEMASA) JONES HALEY ([id number]) 1980 F Date Time Provider Department 09/30/23 11:30 AM HODA NURSE DRE [place] During your visit today, we recorded the following information about you: Temperature Pulse Respiration Blood pressure 97 degrees 71/minute 18/minute 132/82 Renea Schneider MA 09/30/2023 10:53 AM Signed Patient Identification confirmed: yes. Injection given and documented on JUL per provider order. Renea Schneider MA Allergies As of Date: 09/30/2023 Noted Allergy Reaction BACTRIM (SULFAMETHOXAZOLE) 05/31/2014 14 - Other: See Comments Comments: CAUSED ENLARGED LYMPH NODES CODEINE 05/31/2014 14 - Other: See Comments Comments: Make her feel Jittery. OTHERWISE, NO SOB/WHEEZING, and NO DYSPHAGIA, NO URTICARIA, NO ANGIOEDEMA CLINDAMYCIN 03/04/2022 16 - Unknown Comments: Patient states it was a long time ago and she did not have a severe reaction. She does not believe she is allergic, she just thinks she just experienced side effects. DOXYCYCLINE 01/19/2022 14 - Other: See Comments Comments: Patient states it was a long time ago and she did not have a severe reaction. She does not believe she is allergic, she just thinks she just experienced side effects. LATEX 05/31/2014 2 - Rash Comments: Patient states it was a long time ago and she did not have a severe reaction. She does not believe she is allergic, she just thinks she just experienced side effects. SULFAMETHOXAZOLE-TRIME THOPRIM 03/04/2022 7 - Swelling Comments: Patient states it was a long time ago and she did not have a severe reaction. She does not believe she is allergic, she just thinks she just experienced side effects. TRIMETHOPRIM 01/19/2022 14 - Other: See Comments Comments: Patient states it was a long time ago and she did not have a severe reaction. She does not believe she is allergic, she just thinks she just experienced side effects. 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 - azaTHIOprine (IMURAN) 50 mg tablet TAKE 3 TABLETS BY MOUTH DAILY WITH FOOD. HOLD IF ON ANTIBIOTICS OR ILL. - topiramate (TOPAMAX) 25 mg tablet Take 1 tablet by mouth two times a day. - predniSONE (DELTASONE) 10 mg tablet Take 40mg daily x 5days, then decrease 5mg every 5days until 10mg daily thereafter - pregabalin (LYRICA) 75 mg capsule take 1 capsule by mouth three times a day - belimumab (BENLYSTA) 200 mg/mL auto-injector Inject 200mg (1 pen) subcutaneously once weekly - folic acid 1 mg tablet TAKE 1 TABLET BY MOUTH EVERY DAY - hydrOXYchloroQUINE (PLAQUENIL) 200 mg tablet TAKE 1 TAB TWICE A DAY WITH FOOD *SUNSCREEN WHILE OUTDOORS/OPHTHAMOLOGY EVERY 6-12 MONTHS WHILE ON* - metoprolol tartrate, short acting, (LOPRESSOR) 50 mg tablet Take 50 mg by mouth twice daily. - CPAP/BIPAP/OTHER Type .CPAPSettings into a note to see current settings/supplies/DME information. - acetaminophen (TYLENOL) 500 mg tablet Take 1,000 mg by mouth. - aspirin 81 mg chewable tablet Take 81 mg by mouth. - ibuprofen (MOTRIN) 200 mg tablet Take 600 mg by mouth. Facility-Administered Medications as of 09/30/2023 - cyanocobalamin 1,000 mcg injection (Completed) Problem List As Of Date 09/30/2023 Noted Resolved Vitamin B12 deficiency [E53.8] 05/31/2014 Obesity (BMI 30-39.9) [E66.9] 05/31/2014 07/06/2016 Hyperlipidemia [E78.5] 05/31/2014 Ataxia [R27.0] 05/31/2014 Chronic bilateral low back pain with bilateral *05/31/2014 Depression, recurrent (HCC) [F33.9] Chronic pain syndrome [G89.4] Pain, hip [M25.559] Obesity [E66.9] Tobacco use disorder [F17.200] Bilateral sacroiliitis (HCC) [M46.1] 09/13/2015 Elevated sed rate [R70.0] 03/05/2021 High total serum IgM [R76.8] 03/05/2021 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*03/05/2021 Rash and nonspecific skin eruption [R21] 03/05/2021 Swelling of lymph nodes [R59.9] 03/05/2021 Chronic pain of toes of both feet [M79.674, M79*03/05/2021 Bilateral leg weakness [R29.898] 03/05/2021 Hair loss [L65.9] 03/05/2021 Family history of Crohn's disease [Z83.79] 03/05/2021 Long-term use of Plaquenil [Z79.899] 03/05/2021 Vitamin D deficiency [E55.9] 03/06/2021 Fibromyalgia [M79.7] 10/24/2021 Systemic lupus erythematosus (HCC) [M32.9] 10/24/2021 Megaloblastic anemia due to vitamin B12 deficie*03/04/2022 Obesity, Class II, BMI 35-39.9 [E66.9] 03/09/2022 03/10/2023 Discoid lupus erythe (more content not included)... Normal [facility] Audra 09-04-2023 TRUEN Telephone (MAREK) JEFFJONES GONZALEZ ([id number]) 1980 F Date Time Provider Department 09/04/23 LYNNE NI During your visit today, we recorded the following information about you: Lynne Ni MD 09/04/2023 6:39 PM Signed Please Call patient if MyChart note not [...] timidus improved with plaquenil. Hidradenitis suppurativa left AND right medial thigh no active lesions. 06/10/23 [...] NI Prescription(s) as above. Please process accordingly. MD Adelaide Cruz Jeff, MA 09/06/2023 7:21 AM Signed patient has viewed the [employer] message per [employer]. Allergies As of Date: 09/04/2023 Noted Allergy Reaction BACTRIM (SULFAMETHOXAZOLE) 05/31/2014 14 - Other: See Comments Comments: CAUSED ENLARGED LYMPH NODES CODEINE 05/31/2014 14 - Other: See Comments Comments: Make her feel Jittery. OTHERWISE, NO SOB/WHEEZING, and NO DYSPHAGIA, NO URTICARIA, NO ANGIOEDEMA CLINDAMYCIN 03/04/2022 16 - Unknown Comments: Patient states it was a long time ago and she did not have a severe reaction. She does not believe she is allergic, she just thinks she just experienced side effects. DOXYCYCLINE 01/19/2022 14 - Other: See Comments Comments: Patient states it was a long time ago and she did not have a severe reaction. She does not believe she is allergic, she just thinks she just experienced side effects. LATEX 05/31/2014 2 - Rash Comments: Patient states it was a long time ago and she did not have a severe reaction. She does not believe she is allergic, she just thinks she just experienced side effects. SULFAMETHOXAZOLE-TRIME THOPRIM 03/04/2022 7 - Swelling Comments: Patient states it was a long time ago and she did not have a severe reaction. She does not believe she is allergic, she just thinks she just experienced side effects. TRIMETHOPRIM 01/19/2022 14 - Other: See Comments Comments: Patient states it was a long time ago and she did not have a severe reaction. She does not believe she is allergic, she just thinks she just experienced side effects. Date Reviewed: 06/10/2023 Reviewed by: Margret Cuenca MA - Fully Assessed Reason for Visit: Results [95] Primary Visit Diagnosis:Other systemic lupus erythematosus with other organ involvement (HCC) [M32.19] Other Visit Diagnoses:Vitamin D deficiency [E55.9] Elevated LFTs [R79.89] Anemia of chronic disease [D63.8] Elevated sed rate [R70.0] Elevated C-reactive protein (CRP) [R79.82] Order(s):ergocalcifero l 50,000 unit capsule (VITAMIN D2, DRISDOL)Take 1cap by mouth once a week with food.Disp: 12 capsuleRfl: 3 COMPREHENSIVE METABOLIC PANEL [SQCMP] Order #: [id number] FUTURE COMPLETE BLOOD COUNT [SQCBC] Order #: [id number] FUTURE SEDIMENTATION RATE, WESTERGREN [SQWSR] Order #: [id number] FUTURE C-REACTIVE PROTEIN [SQCRP] Order #: [id number] FUTURE VITAMIN D 25 HYDROXY [SQVITD] Order #: [id number] FUTURE Prescriptions as of 09/06/2023 - ergocalciferol 50,000 unit capsule (VITAMIN D2, DRISDOL) Take 1cap by mouth once a week with food. - azaTHIOprine (IMURAN) 50 mg tablet TAKE 3 TABLETS BY MOUTH DAILY WITH FOOD. HOLD IF ON ANTIBIOTICS OR ILL. - topiramate (TOPAMAX) 25 mg tablet Take 1 tablet by mouth two times a day. - predniSONE (DELTASON (more content not included)... Normal [facility] 25(OH)D3 SerPl-[facility] Healthon 2023 25-hydroxyvitamin D3 [Mass/Vol] 32.2 ng/mL Normal 31.0-80.0 [facility] Comment on above: Order Comment: Speci men Type: BLOOD SPECIMENOrdering Facility: [facility] Address: [address] [place] [address] Result Comment: Clas sification of 25 [place] Vitamin D status: Deficiency/Insufficiency: < or = 30 ng/ml. Sufficiency/Optimal Levels: 31-80 ng/mL Toxicity: > 100 ng/mL. Test performed by chemiluminescent immunoassay. Performed By: #### 1 989-3 ####[facility] LAB[facility]IA [id number] [place] [address] [place] CBC W Auto Differential pane l (Bld)on 08-31-2023 Basophils (Bld) [#/Vol] 0.07 10*3/uL Normal <0.11 [facility] Comment on above: Order Comment: Speci men Type: BLOOD SPECIMEN [facility]ing Facility: [facility] Address: [address] [place] [address] Performed By: #### 5 7021-8 #### [facility] CLIA [id number] [address] [place] [address] Basophils/100 WBC (Bld) 0.5 % Normal [facility] Comment on above: Order Comment: Speci men Type: BLOOD SPECIMEN [facility]ing Facility: [facility] Address: [address] [place] [address] Performed By: #### 5 7021-8 #### [facility] CLIA [id number] [address] [place] [address] Differential cell count method Nom (Bld) Auto Normal [facility] Comment on above: Order Comment: Speci men Type: BLOOD SPECIMEN [facility] Facility: [facility] Address: [address] [place] [address] Performed By: #### 5 7021-8 #### [facility] CLIA [id number] [address] [place] [address] Eosinophils (Bld) [#/Vol] 0.20 10*3/uL Normal <0.46 [facility] Comment on above: Order Comment: Speci men Type: BLOOD SPECIMEN [facility]ing Facility: [facility] Address: [address] [place] [address] Performed By: #### 5 7021-8 #### [facility] CLIA [id number] [address] [place] [address] Eosinophils/100 WBC (Bld) 1.5 % Normal [facility] Comment on above: Order Comment: Speci men Type: BLOOD SPECIMEN [facility]ing Facility: [facility] Address: [address] [place] [address] Performed By: #### 5 7021-8 #### [facility] CLIA [id number] [address] [place] [address] Erythrocyte distribution width (RBC) [Ratio] 14.6 % Normal 11.5-15.0 [facility] Comment on above: Order Comment: Speci men Type: BLOOD SPECIMEN [facility] Facility: [facility] Address: [address] [place] [address] Performed By: #### 5 7021-8 #### [facility] CLIA [id number] [address] [place] [address] Hematocrit (Bld) [Volume fraction] 41.5 % Normal 36.0-46.0 [facility] Comment on above: Order Comment: Speci men Type: BLOOD SPECIMEN [facility]ing Facility: [facility] Address: [address] [place] [address] Performed By: #### 5 7021-8 #### [facility] CLIA [id number] [address] [place] [address] Hemoglobin (Bld) [Mass/Vol] 13.3 g/dL Normal 11.5-15.5 [facility] Comment on above: Order Comment: Speci men Type: BLOOD SPECIMEN [facility] Facility: [facility] Address: [address] [place] [address] Performed By: #### 5 7021-8 #### [facility] CLIA [id number] [address] [place] [address] Immature granulocytes (Bld) [#/Vol] 0.14 10*3/uL High <0.10 [facility] Comment on above: Order Comment: Speci men Type: BLOOD SPECIMEN [facility]ing Facility: [facility] Address: [address] [place] [address] Performed By: #### 5 7021-8 #### [facility] CLIA [id number] [address] [place] [address] Immature granulocytes/100 WBC (Bld) 1.0 % Normal [facility] Comment on above: Order Comment: Speci men Type: BLOOD SPECIMEN [facility] Facility: [facility] Address: [address] [place] [address] Performed By: #### 5 7021-8 #### [facility] CLIA [id number] [address] [place] [address] Lymphocytes (Bld) [#/Vol] 2.58 10*3/uL Normal 1.00-4.00 [facility] Comment on above: Order Comment: Speci men Type: BLOOD SPECIMEN [facility] Facility: [facility] Address: [address] [place] [address] Performed By: #### 5 7021-8 #### [facility] CLIA [id number] [address] [place] [address] Lymphocytes/100 WBC (Bld) 19.2 % Normal [facility] Comment on above: Order Comment: Speci men Type: BLOOD SPECIMEN [facility] Facility: [facility] Address: [address] [place] [address] Performed By: #### 5 7021-8 #### [facility] CLIA [id number] [address] [place] [address] MCH (RBC) [Entitic mass] 30.0 pg Normal 26.0-34.0 [facility] Comment on above: Order Comment: Speci men Type: BLOOD SPECIMEN [facility]: [facility] Address: [address] [place] [address] Performed By: #### 5 7021-8 #### [facility] CLIA [id number] [address] [place] [address]702 MCHC (RBC) [Mass/Vol] 32.0 g/dL Normal 30.5-36.0 [facility] Comment on above: Order Comment: Speci men Type: BLOOD SPECIMEN [facility] Facility: [facility] Address: [address] [place] [address] Performed By: #### 5 7021-8 #### [facility] CLIA [id number] [address] [place] [address]59 MCV (RBC) [Entitic vol] 93.7 fL Normal 80.0-100.0 [facility] Comment on above: Order Comment: Speci men Type: BLOOD SPECIMEN [facility] Facility: [facility] Address: [address] [place] [address] Performed By: #### 5 7021-8 #### [facility] CLIA [id number] [address] [place] [address]74 Monocytes (Bld) [#/Vol] 0.75 10*3/uL Normal <0.87 [facility] Comment on above: Order Comment: Speci men Type: BLOOD SPECIMEN [facility]: [facility] Address: [address] [place] [address] Performed By: #### 5 7021-8 #### [facility] CLIA [id number] [address] [place] [address] Monocytes/100 WBC (Bld) 5.6 % Normal [facility] Comment on above: Order Comment: Speci men Type: BLOOD SPECIMEN [facility] Address: [address] [place] [address] Performed By: #### 5 7021-8 #### [facility] CLIA [id number] [address] [place] [address] Neutrophils (Bld) [#/Vol] 9.69 10*3/uL High 1.45-7.50 [facility] Comment on above: Order Comment: Speci men Type: BLOOD SPECIMEN [facility] Address: [address] [place] [address] Performed By: #### 5 7021-8 #### [facility] CLIA [id number] [address] [place] [address]75 Neutrophils/100 WBC (Bld) 72.2 % Normal [facility] Comment on above: Order Comment: Speci men Type: BLOOD SPECIMEN [facility] Address: [address] [place] [address] Performed By: #### 5 7021-8 #### [facility] CLIA [id number] [address] [place] [address]23 Nucleated RBC (Bld) [#/Vol] 10*3/uL Normal <0.01 [facility] Comment on above: Order Comment: Speci men Type: BLOOD SPECIMEN [facility] Address: [address] [place] [address] Performed By: #### 5 7021-8 #### [facility] CLIA [id number] [address] [place] [address] Nucleated RBC/100 WBC (Bld) [Ratio] 0.0 /100 WBC Normal [facility] Comment on above: Order Comment: Speci men Type: BLOOD SPECIMEN [facility] Address: [address] [place] [address] Performed By: #### 5 7021-8 #### [facility] CLIA [id number] [address] [place] [address] Platelet mean volume (Bld) [Entitic vol] 9.6 fL Normal 9.0-12.7 [facility] Comment on above: Order Comment: Speci men Type: BLOOD SPECIMEN [facility] Address: [address] [place] [address] Performed By: #### 5 7021-8 #### [facility] CLIA [id number] [address] [place] [address]6783 Platelets (Bld) [#/Vol] 304 10*3/uL Normal 150-400 [facility] Comment on above: Order Comment: Speci men Type: BLOOD SPECIMEN [facility] Address: [address] [place] [address] Performed By: #### 5 7021-8 #### [facility] CLIA [id number] [address] [place] [address] RBC (Bld) [#/Vol] 4.43 10*6/uL Normal 3.90-5.20 [facility] Comment on above: Order Comment: Speci men Type: BLOOD SPECIMEN [facility] Address: [address] [place] [address] Performed By: #### 5 7021-8 #### [facility] CLIA [id number] [address] [place] [address] WBC (Bld) [#/Vol] 13.43 10*3/uL High 3.70-11.00 [facility] Comment on above: Order Comment: Semaj cortés Type: BLOOD SPECIMEN [facility] Address: [facility] [place] [address] Performed By: #### 5 7021-8 #### [facility] CLIA [id number] [address] [place] [address] CNNURSEon 08-31-2023 CNNURSE Nurse Visit (HEMASA) JONES HALEY ([id number]) 1980 F Date Time Provider Department 08/31/23 10:30 AM HODA NURSE DRE [place] During your visit today, we recorded the following information about you: Temperature Pulse Respiration Blood pressure 97.3 degrees 68/minute 18/minute 105/66 Margret Cuenca MA 08/31/2023 10:36 AM Signed Patient Identification confirmed: yes. Injection given and documented on JUL per provider order. Margret Cuenca MA Allergies As of Date: 08/31/2023 Noted Allergy Reaction BACTRIM (SULFAMETHOXAZOLE) 05/31/2014 14 - Other: See Comments Comments: CAUSED ENLARGED LYMPH NODES CODEINE 05/31/2014 14 - Other: See Comments Comments: Make her feel Jittery. OTHERWISE, NO SOB/WHEEZING, and NO DYSPHAGIA, NO URTICARIA, NO ANGIOEDEMA CLINDAMYCIN 03/04/2022 16 - Unknown Comments: Patient states it was a long time ago and she did not have a severe reaction. She does not believe she is allergic, she just thinks she just experienced side effects. DOXYCYCLINE 01/19/2022 14 - Other: See Comments Comments: Patient states it was a long time ago and she did not have a severe reaction. She does not believe she is allergic, she just thinks she just experienced side effects. LATEX 05/31/2014 2 - Rash Comments: Patient states it was a long time ago and she did not have a severe reaction. She does not believe she is allergic, she just thinks she just experienced side effects. SULFAMETHOXAZOLE-TRIME THOPRIM 03/04/2022 7 - Swelling Comments: Patient states it was a long time ago and she did not have a severe reaction. She does not believe she is allergic, she just thinks she just experienced side effects. TRIMETHOPRIM 01/19/2022 14 - Other: See Comments Comments: Patient states it was a long time ago and she did not have a severe reaction. She does not believe she is allergic, she just thinks she just experienced side effects. 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 HOLD IF ON ANTIBIOTICS OR ILL. - ergocalciferol 50,000 unit capsule (VITAMIN D2, DRISDOL) (take by mouth with food 3times a week, ONE CAPSULE ON Mondays, Fridays) FOR A TOTAL OF 10 WEEKS, then once a week thereafter. - topiramate (TOPAMAX) 25 mg tablet Take 1 tablet by mouth two times a day. - predniSONE (DELTASONE) 10 mg tablet Take 40mg daily x 5days, then decrease 5mg every 5days until 10mg daily thereafter - pregabalin (LYRICA) 75 mg capsule take 1 capsule by mouth three times a day - belimumab (BENLYSTA) 200 mg/mL auto-injector Inject 200mg (1 pen) subcutaneously once weekly - folic acid 1 mg tablet TAKE 1 TABLET BY MOUTH EVERY DAY - hydrOXYchloroQUINE (PLAQUENIL) 200 mg tablet TAKE 1 TAB TWICE A DAY WITH FOOD *SUNSCREEN WHILE OUTDOORS/OPHTHAMOLOGY EVERY 6-12 MONTHS WHILE ON* - metoprolol tartrate, short acting, (LOPRESSOR) 50 mg tablet Take 50 mg by mouth twice daily. - CPAP/BIPAP/OTHER Type .CPAPSettings into a note to see current settings/supplies/DME information. - acetaminophen (TYLENOL) 500 mg tablet Take 1,000 mg by mouth. - aspirin 81 mg chewable tablet Take 81 mg by mouth. - ibuprofen (MOTRIN) 200 mg tablet Take 600 mg by mouth. 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/05/2021 Rash and nonspecific skin eruption [R21] 03/05/2021 Swelling of lymph nodes [R59.9] 03/05/2021 Chronic pain of toes of both feet [M79.674, M79*03/05/2021 Bilateral leg weakness [R29.898] 03/05/2021 Hair loss [L65.9] 03/05/2021 Family history of Crohn's disease [Z83.79] 03/05/2021 Long-term use of Plaquenil [Z79.899] 03/05/2021 Vitamin D deficiency [E55.9] 03/06/2021 Fibromyalgia [M79.7] 10/24/2021 Systemic lupus erythematosus (HCC) [M32.9] 10/24/2021 Megaloblastic anemia due to vitamin B12 deficie*03/04/2022 Obesity, Class II, BMI 35-39.9 [E66.9] 03/09/2022 03/10/2023 Discoid lupus erythematosus [L93.0] 02/14/2022 Obstructive sleep apnea syndrome [G47.33] 05/20/2022 Somnolence, daytime [R40.0] 05/20/2022 Long-term use of high- (more content not included)... Normal [facility] CRP SerPl-mCncon 08-31-2023 CRP [Mass/Vol] 0.6 mg/dL Normal <0.9 [facility] Comment on above: Order Comment: Speci men Type: BLOOD SPECIMENOrdering Facility: [facility] Address: [address] [place] [address] Performed By: #### 5 0190-8, 1987-09, 2275-08 ####[facility] LAB[facility] [id number] [place] [id number] [facility] Comprehensive metabolic 2000 panelon 08-31-2023 Albumin [Mass/Vol] 4.0 g/dL Normal 3.9-4.9 [facility] Comment on above: Order Comment: Speci men Type: BLOOD SPECIMEN [facility] Address: [address] [place] [address] Performed By: #### 5 7021-8 #### [facility] CLIA [id number] [address] [place] [address] ALP [Catalytic activity/Vol] 69 U/L Normal 34-123 [facility] Comment on above: Order Comment: Speci men Type: BLOOD SPECIMEN Ordering Facility: [facility] Address: [address] [place] [address] Performed By: #### 5 7021-8 #### [facility] CLIA [id number] [address] [place] [address]273 ALT [Catalytic activity/Vol] 31 U/L Normal 7-38 [facility] Comment on above: Order Comment: Speci men Type: BLOOD SPECIMEN Ordering Facility: [facility] Address: [address] [place] [address] Performed By: #### 5 7021-8 #### [facility] CLIA [id number] [address] [place] [address] Anion gap [Moles/Vol] 11 mmol/L Normal 9-18 [facility] Comment on above: Order Comment: Speci men Type: BLOOD SPECIMEN Ordering Facility: [facility] Address: [address] [id number] Performed By: #### 5 7021-8 #### [facility] CLIA [id number] [address] [place] [address] AST [Catalytic activity/Vol] 18 U/L Normal 13-35 [facility] Comment on above: Order Comment: Speci men Type: BLOOD SPECIMEN Ordering Facility: [facility] Address: [address] [place] [address] Performed By: #### 5 7021-8 #### [facility] CLIA [id number] [address] [place] [address]05 Bilirubin [Mass/Vol] 0.3 mg/dL Normal 0.2-1.3 [facility] Comment on above: Order Comment: Speci men Type: BLOOD SPECIMEN Ordering Facility: [facility] Address: [address] [place] [address] Performed By: #### 5 7021-8 #### [facility] CLIA [id number] [address] [place] [address] Calcium [Mass/Vol] 10.0 mg/dL Normal 8.5-10.2 [facility] Comment on above: Order Comment: Speci men Type: BLOOD SPECIMEN Ordering Facility: [facility] Address: [address] [place] [address] Performed By: #### 5 7021-8 #### [facility] CLIA [id number] [address] [place] [address] Chloride [Moles/Vol] 105 mmol/L Normal 97-105 [facility] Comment on above: Order Comment: Speci men Type: BLOOD SPECIMEN Ordering Facility: [facility] Address: [address] [place] [address] Performed By: #### 5 7021-8 #### [facility] CLIA [id number] [address] [place] [address] CO2 [Moles/Vol] 25 mmol/L Normal 22-30 [facility] Comment on above: Order Comment: Speci men Type: BLOOD SPECIMEN Ordering Facility: [facility] Address: [address] [place] [address] Performed By: #### 5 7021-8 #### [facility] CLIA [id number] [address] [place] [address]37 Creatinine [Mass/Vol] 0.80 mg/dL Normal 0.58-0.96 [facility] Comment on above: Order Comment: Speci men Type: BLOOD SPECIMEN Ordering Facility: [facility] Address: [address] [place] [address] Performed By: #### 5 7021-8 #### [facility] CLIA [id number] [address] [place] [address]267 Creatinine and Glomerular filtration rate.predicted panel (S/P/Bld) 94 mL/min/1.73m??? Normal >=60 [facility] Comment on above: Order Comment: Speci men Type: BLOOD SPECIMEN Ordering Facility: [facility] Address: [address] [place] [address] Result Comment: Erin mated Glomerular Filtration Rate [...] accurately reflect actual GFR. Performed By: #### 5 7021-8 #### [facility] CLIA [id number] [address] [place] [address] Glucose [Mass/Vol] 160 mg/dL High 74-99 [facility] Comment on above: Order Comment: Speci men Type: BLOOD SPECIMEN Ordering Facility: [facility] Address: [address] [place] [address] Result Comment: The [place] [employer] (ADA) provides guidance for cutoff values for fasting glucose and random glucose. The ADA defines fasting as no caloric intake for at least 8 hours. Fasting plasma glucose results between 100 to 125 mg/dL indicate increased risk for diabetes (prediabetes). Fasting plasma glucose results greater than or equal to 126 mg/dL meet the criteria for diagnosis of diabetes. In the absence of unequivocal hyperglycemia, results should be confirmed by repeat testing. In a patient with classic symptoms of hyperglycemia or hyperglycemic crisis, random plasma glucose results greater than or equal to 200 mg/dL meet the criteria for diagnosis of diabetes. Reference: Standards of Medical Care in Diabetes 2016, [place] [employer]. Diabetes Care. 2016.39(Suppl 1). Performed By: #### 5 7021-8 #### [facility] CLIA [id number] [address] [place] [address] Potassium [Moles/Vol] 4.2 mmol/L Normal 3.7-5.1 [facility] Comment on above: Order Comment: Speci men Type: BLOOD SPECIMEN Ordering Facility: [facility] Address: [address] [place] [address] Performed By: #### 5 7021-8 #### [facility] CLIA [id number] [address] [place] [address]333 Protein [Mass/Vol] 6.9 g/dL Normal 6.3-8.0 [facility] Comment on above: Order Comment: Speci men Type: BLOOD SPECIMEN Ordering Facility: [facility] Address: [address] [place] [address] Performed By: #### 5 7021-8 #### [facility] CLIA [id number] [address] [place] [address]25 Sodium [Moles/Vol] 141 mmol/L Normal 136-144 [facility] Comment on above: Order Comment: Speci men Type: BLOOD SPECIMEN Ordering Facility: [facility] Address: [address] [place] [address] Performed By: #### 5 7021-8 #### [facility] CLIA [id number] [address] [place] [address]39 Urea nitrogen [Mass/Vol] 13 mg/dL Normal 7-21 [facility] Comment on above: Order Comment: Speci men Type: BLOOD SPECIMEN Ordering Facility: [facility] Address: [address] [place] [address] Performed By: #### 5 7021-8 #### [facility] CLIA [id number] [address] [place], [place] [id number] ESR Westergren method (Bld) [Velocity]on 08-31-2023 ESR (Bld) [Velocity] 37 mm/h High 0-20 [facility] Comment on above: Order Comment: Speci men Type: BLOOD SPECIMEN Ordering Facility: [facility] Address: [address] [place] [address] Performed By: #### 4 537-7 #### [facility] CLIA [id number] [address] [place], [place] [address] [place] [address] [place] Ferritin SerPl-mCncon 2023 Ferritin [Mass/Vol] 60.3 ng/mL Normal 14.7-205.1 [facility] Comment on above: Order Comment: Speci men Type: BLOOD SPECIMEN Ordering Facility: [facility] Address: [address] [place] [address] Performed By: #### 4 537-7 #### [facility] CLIA [id number] [address] [place], [place] [address] [place] [address] [place] Folate SerPl-mCncon 08-31-19 24 Folate [Mass/Vol] ng/mL Normal >4.7 [facility] Comment on above: Order Comment: Speci men Type: BLOOD SPECIMEN Ordering Facility: [facility] Address: [address] [place] [address] Result Comment: A re sult of > 20 ng/mL is not necessarily indicative of a pathologic or treatable condition: it reflects a limitation of the test methodology. Assay reference range: 4.8 to 24.2 ng/mL. Suitable for detection of folate deficiency. Reference: Folate III (Folate III) [package insert V 1.0 [place]]. [facility], [place], [place]: March 2015. Performed By: #### 5 7021-8 #### [facility] CLIA [id number] [address] [place] [address] Iron and Iron binding capaci ty panelon 08-31-2023 Iron [Mass/Vol] 87 ug/dL Normal 41-186 [facility] Comment on above: Order Comment: Speci men Type: BLOOD SPECIMEN Ordering Facility: [facility] Address: [address] [place] [address] Performed By: #### 4 537-7 #### [facility] CLIA [id number] [address] [place] [address] [place] Iron binding capacity [Mass/Vol] 356 ug/dL Normal 232-386 [facility] Comment on above: Order Comment: Speci men Type: BLOOD SPECIMEN Ordering Facility: [facility] Address: [address] [place] [address] Performed By: #### 4 537-7 #### [facility] CLIA [id number] [address] [place] [address] [place] Iron/TIBC [Molar ratio] 24.4 % Normal 15.0-57.0 [facility] Comment on above: Order Comment: Speci men Type: BLOOD SPECIMEN Ordering Facility: [facility] Address: [address] [place] [address] Performed By: #### 4 537-7 #### [facility] CLIA [id number] [address] [place] [address] [place] Vit B12 SerPl-ncon 024 Cobalamin (Vitamin B12) [Mass/Vol] 820 pg/mL Normal 232-1245 [facility] Comment on above: Order Comment: Speci men Type: BLOOD SPECIMEN Ordering Facility: [facility] Address: [address] [place] [address] Performed By: #### 5 7021-8 #### [facility] CLIA [id number] [address] [place] [address] [facility] Nurse Visit (BERNADINE) JONES HALEY ([id number]) 1980 F Date Time Provider Department 08/05/23 11:00 AM [facility] NURSE [facility] [place] During your visit today, we recorded the following information about you: Temperature Pulse Respiration Blood pressure 97.4 degrees 68/minute 18/minute 98/41 Margret Cuenca 08/05/2023 11:18 AM Signed Patient Identification confirmed: yes. Injection given and documented on JUL per provider order. Margret Cuenca Allergies As of Date: 08/05/2023 Noted Allergy Reaction BACTRIM (SULFAMETHOXAZOLE) 05/31/2014 14 - Other: See Comments Comments: CAUSED ENLARGED LYMPH NODES CODEINE 05/31/2014 14 - Other: See Comments Comments: Make her feel Jittery. OTHERWISE, NO SOB/WHEEZING, and NO DYSPHAGIA, NO URTICARIA, NO ANGIOEDEMA CLINDAMYCIN 03/04/2022 16 - Unknown Comments: Patient states it was a long time ago and she did not have a severe reaction. She does not believe she is allergic, she just thinks she just experienced side effects. DOXYCYCLINE 01/19/2022 14 - Other: See Comments Comments: Patient states it was a long time ago and she did not have a severe reaction. She does not believe she is allergic, she just thinks she just experienced side effects. LATEX 05/31/2014 2 - Rash Comments: Patient states it was a long time ago and she did not have a severe reaction. She does not believe she is allergic, she just thinks she just experienced side effects. SULFAMETHOXAZOLE-TRIME THOPRIM 03/04/2022 7 - Swelling Comments: Patient states it was a long time ago and she did not have a severe reaction. She does not believe she is allergic, she just thinks she just experienced side effects. TRIMETHOPRIM 01/19/2022 14 - Other: See Comments Comments: Patient states it was a long time ago and she did not have a severe reaction. She does not believe she is allergic, she just thinks she just experienced side effects. 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 - Phentermine HCl 37.5 mg tablet Take 1 tablet by mouth daily before breakfast for 90 days. - topiramate (TOPAMAX) 25 mg tablet Take 1 tablet by mouth two times a day. - predniSONE (DELTASONE) 10 mg tablet Take 40mg daily x 5days, then decrease 5mg every 5days until 10mg daily thereafter - pregabalin (LYRICA) 75 mg capsule take 1 capsule by mouth three times a day - azaTHIOprine (IMURAN) 50 mg tablet TAKE 3 TABLETS BY MOUTH DAILY WITH FOOD. HOLD IF ON ANTIBIOTICS OR ILL. - belimumab (BENLYSTA) 200 mg/mL auto-injector Inject 200mg (1 pen) subcutaneously once weekly - folic acid 1 mg tablet TAKE 1 TABLET BY MOUTH EVERY DAY - hydrOXYchloroQUINE (PLAQUENIL) 200 mg tablet TAKE 1 TAB TWICE A DAY WITH FOOD *SUNSCREEN WHILE OUTDOORS/OPHTHAMOLOGY EVERY 6-12 MONTHS WHILE ON* - metoprolol tartrate, short acting, (LOPRESSOR) 50 mg tablet Take 50 mg by mouth twice daily. - CPAP/BIPAP/OTHER Type .CPAPSettings into a note to see current settings/supplies/DME information. - acetaminophen (TYLENOL) 500 mg tablet Take 1,000 mg by mouth. - aspirin 81 mg chewable tablet Take 81 mg by mouth. - ibuprofen (MOTRIN) 200 mg tablet Take 600 mg by mouth. Facility-Administered Medications as of 08/05/2023 - cyanocobalamin 1,000 mcg injection (Completed) Problem List As Of Date 08/05/2023 Noted Resolved Vitamin B12 deficiency [E53.8] 05/31/2014 Obesity (BMI 30-39.9) [E66.9] 05/31/2014 07/06/2016 Hyperlipidemia [E78.5] 05/31/2014 Ataxia [R27.0] 05/31/2014 Chronic bilateral low back pain with bilateral *05/31/2014 Depression, recurrent (HCC) [F33.9] Chronic pain syndrome [G89.4] Pain, hip [M25.559] Obesity [E66.9] Tobacco use disorder [F17.200] Bilateral sacroiliitis (HCC) [M46.1] 09/13/2015 Elevated sed rate [R70.0] 03/05/2021 High total serum IgM [R76.8] 03/05/2021 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*03/05/2021 Rash and nonspecific skin eruption [R21] 03/05/2021 Swelling of lymph nodes [R59.9] 03/05/2021 Chronic pain of toes of both feet [M79.674, M79*03/05/2021 Bilateral leg weakness [R29.898] 03/05/2021 Hair loss [L65.9] 03/05/2021 Family history of Crohn's disease [Z83.79] 03/05/2021 Long-term use of Plaquenil [Z79.899] 03/05/2021 Vitamin D deficiency [E55.9] 03/06/2021 Fibromyalgia [M79.7] 10/24/2021 Systemic lupus erythematosus (HCC) [M32.9] 10/24/2021 Megaloblastic anemia due to vitamin B12 deficie*03/04/2022 Obesity, Class II, BMI 35-39.9 [E66.9] 03/09/2022 1 (more content not included)... Normal [facility] CNNURSEon 07-13-2023 CNNURSE Nurse Visit (HEMASA) JONES HALEY ([id number]) 1980 F Date Time Provider Department 07/13/23 11:00 AM [facility] NURSE [facility] [place] During your visit today, we recorded the following information about you: Temperature Pulse Respiration Blood pressure 97.5 degrees 83/minute 18/minute 109/74 Margret Cuenca 07/13/2023 12:06 PM Signed Patient Identification confirmed: yes. Injection given and documented on JUL per provider order. Margret Cuenca Allergies As of Date: 07/13/2023 Noted Allergy Reaction BACTRIM (SULFAMETHOXAZOLE) 05/31/2014 14 - Other: See Comments Comments: CAUSED ENLARGED LYMPH NODES CODEINE 05/31/2014 14 - Other: See Comments Comments: Make her feel Jittery. OTHERWISE, NO SOB/WHEEZING, and NO DYSPHAGIA, NO URTICARIA, NO ANGIOEDEMA CLINDAMYCIN 03/04/2022 16 - Unknown Comments: Patient states it was a long time ago and she did not have a severe reaction. She does not believe she is allergic, she just thinks she just experienced side effects. DOXYCYCLINE 01/19/2022 14 - Other: See Comments Comments: Patient states it was a long time ago and she did not have a severe reaction. She does not believe she is allergic, she just thinks she just experienced side effects. LATEX 05/31/2014 2 - Rash Comments: Patient states it was a long time ago and she did not have a severe reaction. She does not believe she is allergic, she just thinks she just experienced side effects. SULFAMETHOXAZOLE-TRIME THOPRIM 03/04/2022 7 - Swelling Comments: Patient states it was a long time ago and she did not have a severe reaction. She does not believe she is allergic, she just thinks she just experienced side effects. TRIMETHOPRIM 01/19/2022 14 - Other: See Comments Comments: Patient states it was a long time ago and she did not have a severe reaction. She does not believe she is allergic, she just thinks she just experienced side effects. 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 - Phentermine HCl 37.5 mg tablet Take 1 tablet by mouth daily before breakfast for 90 days. - topiramate (TOPAMAX) 25 mg tablet Take 1 tablet by mouth two times a day. - predniSONE (DELTASONE) 10 mg tablet Take 40mg daily x 5days, then decrease 5mg every 5days until 10mg daily thereafter - pregabalin (LYRICA) 75 mg capsule take 1 capsule by mouth three times a day - azaTHIOprine (IMURAN) 50 mg tablet TAKE 3 TABLETS BY MOUTH DAILY WITH FOOD. HOLD IF ON ANTIBIOTICS OR ILL. - belimumab (BENLYSTA) 200 mg/mL auto-injector Inject 200mg (1 pen) subcutaneously once weekly - folic acid 1 mg tablet TAKE 1 TABLET BY MOUTH EVERY DAY - hydrOXYchloroQUINE (PLAQUENIL) 200 mg tablet TAKE 1 TAB TWICE A DAY WITH FOOD *SUNSCREEN WHILE OUTDOORS/OPHTHAMOLOGY EVERY 6-12 MONTHS WHILE ON* - metoprolol tartrate, short acting, (LOPRESSOR) 50 mg tablet Take 50 mg by mouth twice daily. - CPAP/BIPAP/OTHER Type .CPAPSettings into a note to see current settings/supplies/DME information. - acetaminophen (TYLENOL) 500 mg tablet Take 1,000 mg by mouth. - aspirin 81 mg chewable tablet Take 81 mg by mouth. - ibuprofen (MOTRIN) 200 mg tablet Take 600 mg by mouth. 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*03/05/2021 Rash and nonspecific skin eruption [R21] 03/05/2021 Swelling of lymph nodes [R59.9] 03/05/2021 Chronic pain of toes of both feet [M79.674, M79*03/05/2021 Bilateral leg weakness [R29.898] 03/05/2021 Hair loss [L65.9] 03/05/2021 Family history of Crohn's disease [Z83.79] 03/05/2021 Long-term use of Plaquenil [Z79.899] 03/05/2021 Vitamin D deficiency [E55.9] 03/06/2021 Fibromyalgia [M79.7] 10/24/2021 Systemic lupus erythematosus (HCC) [M32.9] 10/24/2021 Megaloblastic anemia due to vitamin B12 deficie*03/04/2022 Obesity, Class II, BMI 35-39.9 [E66.9] 03/09/2022 03/10/2023 Discoid lupus erythematosus [L93.0] 02/14/2022 (more content not included)... Normal [facility] ECG 12 Leadon 07-13-2023 ECG revealed normal sinus rhythm [facility] Work Phone: CNPDede 06-12-2023 CNPN Telephone (MAREK) JONES HALEY ([id number]) 1980 F Date Time Provider Department 06/12/23 LYNNE NI During your visit today, we recorded the following information about you: Lynne Ni MD 06/12/2023 2:35 PM Signed Please Call patient if PresentigoharOxtox note not read to review results/released to My Chart if tests completed at [facility]: Mildly low potassium- increase potassium intake, care per primary care provider. Low vitamin D maybe associated with fatigue/joint/muscle pain. Start and stay on vitamin D script with food. Borderline wbc and one inflammatory test- will monitor with primary care provider. Rest of labs stable. New script sent to pharmacy. Notify office if medication change is not tolerated. Recheck nonfasting labs in 3months, orders have been placed. Happy to further review and discuss at follow up visit. Continue rest of treatment plan per instructions at last office visit. Thank you. 06/10/23 low potassium 3.6, vitamin D 17.3;high wbc 15.15, esr 28;normal rest of cbc, cmp, crp<0.3; 05/11/23 flare, treated with prednisone pack Eye exam 02/26/23 no ocular complication related to medication. Patient's request for medication is as follows: Requested Prescriptions Signed Prescriptions Disp Refills ergocalciferol 50,000 unit capsule (VITAMIN D2, DRISDOL) 34 capsule 1 Sig: (take by mouth with food 3times a week, ONE CAPSULE ON Mondays, Fridays) FOR A TOTAL OF 10 WEEKS, then once a week thereafter. Authorizing Provider: LYNNE NI Prescription(s) as above. Please process accordingly. MD Adelaide Cruz Jeff, [place] 06/14/2023 7:15 AM Signed patient has viewed the [employer] message per [employer]. Allergies As of Date: 06/12/2023 Noted Allergy Reaction BACTRIM (SULFAMETHOXAZOLE) 05/31/2014 14 - Other: See Comments Comments: CAUSED ENLARGED LYMPH NODES CODEINE 05/31/2014 14 - Other: See Comments Comments: Make her feel Jittery. OTHERWISE, NO SOB/WHEEZING, and NO DYSPHAGIA, NO URTICARIA, NO ANGIOEDEMA CLINDAMYCIN 03/04/2022 16 - Unknown Comments: Patient states it was a long time ago and she did not have a severe reaction. She does not believe she is allergic, she just thinks she just experienced side effects. DOXYCYCLINE 01/19/2022 14 - Other: See Comments Comments: Patient states it was a long time ago and she did not have a severe reaction. She does not believe she is allergic, she just thinks she just experienced side effects. LATEX 05/31/2014 2 - Rash Comments: Patient states it was a long time ago and she did not have a severe reaction. She does not believe she is allergic, she just thinks she just experienced side effects. SULFAMETHOXAZOLE-TRIME THOPRIM 03/04/2022 7 - Swelling Comments: Patient states it was a long time ago and she did not have a severe reaction. She does not believe she is allergic, she just thinks she just experienced side effects. TRIMETHOPRIM 01/19/2022 14 - Other: See Comments Comments: Patient states it was a long time ago and she did not have a severe reaction. She does not believe she is allergic, she just thinks she just experienced side effects. Date Reviewed: 06/10/2023 Reviewed by: Margret Cuenca - Fully Assessed Reason for Visit: Results [95] Primary Visit Diagnosis:Other systemic lupus erythematosus with other organ involvement (HCC) [M32.19] Other Visit Diagnoses:Vitamin D deficiency [E55.9] Elevated LFTs [R79.89] Anemia of chronic disease [D63.8] Elevated sed rate [R70.0] Elevated C-reactive protein (CRP) [R79.82] Order(s):ergocalcifero l 50,000 unit capsule (VITAMIN D2, DRISDOL)(take by mouth with food 3times a week, ONE CAPSULE ON Mondays, Fridays) FOR A TOTAL OF 10 WEEKS, then once a week thereafter.Disp: 34 capsuleRfl: 1 COMP METABOLIC PANEL [SQCMP] Order #: [id number] FUTURE CBC [SQCBC] Order #: [id number] FUTURE SED RATE WESTERGREN [SQWSR] Order #: [id number] FUTURE C-REACTIVE PROTEIN (CRP) [SQCRP] Order #: [id number] FUTURE VITAMIN D 25 HYDROXY [SQVITD] Order #: [id number] FUTURE Prescriptions as of 06/14/2023 - ergocalciferol 50,000 unit capsule (VITAMIN D2, DRISDOL) (take by mouth with food 3times a week, ONE CAPSULE ON Mondays, Fridays) FOR A TOTAL OF 10 WEEKS, then once a week thereafter. - Phentermine HCl 37.5 mg tablet Take 1 tablet by mouth daily before breakfast for 90 days. - topiramate (TOPAMAX) 25 mg tablet Take 1 tablet by mouth two times a day. - predniSONE (DELTASONE) 10 mg tablet Take 40mg daily x 5days, then decrease 5mg every 5days until 10mg daily thereafter - pregabalin (LYRICA) 75 mg capsule take 1 capsule by mouth three times a day - azaTHIOprine (IMURAN) 50 mg tablet TAKE 3 TABLETS BY MOUTH DAILY WITH FOOD. HOLD IF ON ANTIBIOTICS OR ILL. - belimumab (BENLYSTA) 200 mg/mL auto-injector Inject 200mg (1 pen) subcutaneously once weekly - folic acid 1 mg tablet T (more content not included)... Normal [facility] 25(OH)D3 SerPl-ncon 2023 25-hydroxyvitamin D3 [Mass/Vol] 17.3 ng/mL Low 31.0-80.0 [facility] Comment on above: Order Comment: Semaj cortés Type: BLOOD SPECIMEN Ordering Facility: [facility] Address: [address] [place] [address] Result Comment: Clas sification of 25 [place] Vitamin D status: Deficiency/Insufficiency: < or = 30 ng/ml. Sufficiency/Optimal Levels: 31-80 ng/mL Toxicity: > 100 ng/mL. Test performed by chemiluminescent immunoassay. Performed By: #### I NSLAB #### [facility] CLIA [id number] [address] [facility] [place] [address] [place] CBC panel Auto (Bld)on 06-10 Erythrocyte distribution width (RBC) [Ratio] 14.5 % Normal 11.5-15.0 [facility] Comment on above: Order Comment: Semaj cortés Type: BLOOD SPECIMEN Ordering Facility: [facility] Address: [address] [place] [address] Performed By: #### I NSLAB #### [facility] CLIA [id number] [address] [place] [address] [place] Hematocrit (Bld) [Volume fraction] 43.1 % Normal 36.0-46.0 [facility] Comment on above: Order Comment: Speci men Type: BLOOD SPECIMEN Ordering Facility: [facility] Address: [address] [place] [address] Performed By: #### I NSLAB #### [facility] CLIA [id number] [address] [place] [address] [place] Hemoglobin (Bld) [Mass/Vol] 13.9 g/dL Normal 11.5-15.5 [facility] Comment on above: Order Comment: Speci men Type: BLOOD SPECIMEN Ordering Facility: [facility] Address: [address] [place] [address] Performed By: #### I NSLAB #### [facility] CLIA [id number] [address] [place] [address] [place] MCH (RBC) [Entitic mass] 30.6 pg Normal 26.0-34.0 [facility] Comment on above: Order Comment: Speci men Type: BLOOD SPECIMEN Ordering Facility: [facility] Address: [address] [place] [address] Performed By: #### I NSLAB #### [facility] CLIA [id number] [address] [place] [address] [place] MCHC (RBC) [Mass/Vol] 32.3 g/dL Normal 30.5-36.0 [facility] Comment on above: Order Comment: Speci men Type: BLOOD SPECIMEN Ordering Facility: [facility] Address: [address] [place] [address] Performed By: #### I NSLAB #### [facility] CLIA [id number] [address] [place] [address] [place] MCV (RBC) [Entitic vol] 94.9 fL Normal 80.0-100.0 [facility] Comment on above: Order Comment: Speci men Type: BLOOD SPECIMEN Ordering Facility: [facility] Address: [address] [place] [address] Performed By: #### I NSLAB #### [facility] CLIA [id number] [address] [place] [address] [place] Nucleated RBC (Bld) [#/Vol] 10*3/uL Normal <0.01 [facility] Comment on above: Order Comment: Speci men Type: BLOOD SPECIMEN Ordering Facility: [facility] Address: [address] [place] [address] Performed By: #### I NSLAB #### [facility] CLIA [id number] [address] [place] [address] [place] Platelet mean volume (Bld) [Entitic vol] 9.5 fL Normal 9.0-12.7 [facility] Comment on above: Order Comment: Speci men Type: BLOOD SPECIMEN Ordering Facility: [facility] Address: [address] [place] [address] Performed By: #### I NSLAB #### [facility] CLIA [id number] [address] [place] [address] [place] Platelets (Bld) [#/Vol] 320 10*3/uL Normal 150-400 [facility] Comment on above: Order Comment: Speci men Type: BLOOD SPECIMEN Ordering Facility: [facility] Address: [address] [place] [address] Performed By: #### I NSLAB #### [facility] CLIA [id number] [address] [place] [address] [place] RBC (Bld) [#/Vol] 4.54 10*6/uL Normal 3.90-5.20 [facility] Comment on above: Order Comment: Speci men Type: BLOOD SPECIMEN Ordering Facility: [facility] Address: [address] [place] [address] Performed By: #### I NSLAB #### [facility] CLIA [id number] [address] [facility] [place] [id number] [place] WBC (Bld) [#/Vol] 15.15 10*3/uL High 3.70-11.00 [facility] Comment on above: Order Comment: Speci men Type: BLOOD SPECIMEN Ordering Facility: [facility] Address: [address] [place] [address] Performed By: #### I NSLAB #### [facility] CLIA [id number] [address] [address] [place] CNNURSEon 06-10-2023 CNNURSE Nurse Visit (HEMASA) JONES HALEY ([id number]) 1980 F Date Time Provider Department 06/10/23 11:15 AM HODA NURSE DRE COLIN[place]ES During your visit today, we recorded the following information about you: Radha Schofield MA 06/10/2023 11:55 AM Signed Patient Identification confirmed: yes. Injection given and documented on JUL per provider order. Radha Schofield MA Allergies As of Date: 06/10/2023 Noted Allergy Reaction BACTRIM (SULFAMETHOXAZOLE) 05/31/2014 14 - Other: See Comments Comments: CAUSED ENLARGED LYMPH NODES CODEINE 05/31/2014 14 - Other: See Comments Comments: Make her feel Jittery. OTHERWISE, NO SOB/WHEEZING, and NO DYSPHAGIA, NO URTICARIA, NO ANGIOEDEMA CLINDAMYCIN 03/04/2022 16 - Unknown Comments: Patient states it was a long time ago and she did not have a severe reaction. She does not believe she is allergic, she just thinks she just experienced side effects. DOXYCYCLINE 01/19/2022 14 - Other: See Comments Comments: Patient states it was a long time ago and she did not have a severe reaction. She does not believe she is allergic, she just thinks she just experienced side effects. LATEX 05/31/2014 2 - Rash Comments: Patient states it was a long time ago and she did not have a severe reaction. She does not believe she is allergic, she just thinks she just experienced side effects. SULFAMETHOXAZOLE-TRIME THOPRIM 03/04/2022 7 - Swelling Comments: Patient states it was a long time ago and she did not have a severe reaction. She does not believe she is allergic, she just thinks she just experienced side effects. TRIMETHOPRIM 01/19/2022 14 - Other: See Comments Comments: Patient states it was a long time ago and she did not have a severe reaction. She does not believe she is allergic, she just thinks she just experienced side effects. 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 - topiramate (TOPAMAX) 25 mg tablet Take 1 tablet by mouth two times a day. - predniSONE (DELTASONE) 10 mg tablet Take 40mg daily x 5days, then decrease 5mg every 5days until 10mg daily thereafter - pregabalin (LYRICA) 75 mg capsule take 1 capsule by mouth three times a day - azaTHIOprine (IMURAN) 50 mg tablet TAKE 3 TABLETS BY MOUTH DAILY WITH FOOD. HOLD IF ON ANTIBIOTICS OR ILL. - belimumab (BENLYSTA) 200 mg/mL auto-injector Inject 200mg (1 pen) subcutaneously once weekly - ergocalciferol 50,000 unit capsule (VITAMIN D2, DRISDOL) (take by mouth with food 3times a week, ONE CAPSULE ON Mondays, Fridays) FOR A TOTAL OF 8 WEEKS, then once a week thereafter. - folic acid 1 mg tablet TAKE 1 TABLET BY MOUTH EVERY DAY - hydrOXYchloroQUINE (PLAQUENIL) 200 mg tablet TAKE 1 TAB TWICE A DAY WITH FOOD *SUNSCREEN WHILE OUTDOORS/OPHTHAMOLOGY EVERY 6-12 MONTHS WHILE ON* - metoprolol tartrate, short acting, (LOPRESSOR) 50 mg tablet Take 50 mg by mouth twice daily. - CPAP/BIPAP/OTHER Type .CPAPSettings into a note to see current settings/supplies/DME information. - acetaminophen (TYLENOL) 500 mg tablet Take 1,000 mg by mouth. - aspirin 81 mg chewable tablet Take 81 mg by mouth. - ibuprofen (MOTRIN) 200 mg tablet Take 600 mg by mouth. 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*03/05/2021 Rash and nonspecific skin eruption [R21] 03/05/2021 Swelling of lymph nodes [R59.9] 03/05/2021 Chronic pain of toes of both feet [M79.674, M79*03/05/2021 Bilateral leg weakness [R29.898] 03/05/2021 Hair loss [L65.9] 03/05/2021 Family history of Crohn's disease [Z83.79] 03/05/2021 Long-term use of Plaquenil [Z79.899] 03/05/2021 Vitamin D deficiency [E55.9] 03/06/2021 Fibromyalgia [M79.7] 10/24/2021 Systemic lupus erythematosus (HCC) [M32.9] 10/24/2021 Megaloblastic anemia due to vitamin B12 deficie*03/04/2022 Obesity, Class II, BMI 35-39.9 [E66.9] 03/09/2022 03/10/2023 Discoid lupus erythematosus [L93.0] 02/14/2022 Obstructive sleep apnea syndrome [G47.33] 05/20/2022 Somnolence, daytime [R40.0] 05/20/2022 Long-term use of high-risk medication [Z79.899] 06/15/2022 CHRISTIAN positive [R76.8] 06/15/2022 Obesity, Class II (more content not included)... Normal [facility] CNOVSPon 06-10-2023 CNOVSP Visit (SP) Office (HEMASA) JONES HALEY ([id number]) 1980 F Date Time Provider Department 06/10/23 11:00 AM JOSE NAJERA During your visit today, we recorded the following information about you: Temperature Pulse Respiration Blood pressure 97.7 degrees 77/minute 18/minute 107/64 Weight Height Last Period 128.3 kg 1.702 m 05/18/22 Jose Najera MD 06/12/2023 6:25 PM Signed NAME: Jones Haley CLINIC NO.: [id number] DATE OF SERVICE: June 10, 2023 (Marquis) Some elements in this clinic note that are critical to medical decision making have been carefully reviewed and included from a prior clinic note dated: April 16, 2023 (Bob). Referring Provider: Dr. Madelaine Ferris Additional Clinicians [...] 13 Weeks - labs 1 week before. - HPI: CASE HISTORY: Currently 2021 ongoing and generalized malaise with elevated IgM. 2020 - lymph node biopsy from neck negative for malignancy. 2019 - had a respiratory illness with dyspnea, possible bronchitis, no cough Updated Visit, June 10, 2023: Jones returns [...] lower lip done [address] [facility] - awaiting results. B12 helps especially at beginning of the month. Might consider every 3 weeks in future Forehead is swollen. Not sure it is related to plaquenil and gets worse on days she take the full dose vs. A partial dose. Will follow dermatology regarding this. Started Trulicity. Completing steroid taper now down to 10 mg. An (more content not included)... Normal [facility] CRP SerPl-mCncon 06-10-2023 CRP [Mass/Vol] mg/L Normal <0.9 [facility] Comment on above: Order Comment: Speci men Type: BLOOD SPECIMEN Ordering Facility: [facility] Address: [address] [place] [address] Performed By: #### 5 7021-8 #### [facility] CLIA [id number] [address] [place] [address] Comprehensive metabolic 2000 panelon 06-10-2023 Albumin [Mass/Vol] 4.1 g/dL Normal 3.9-4.9 [facility] Comment on above: Order Comment: Speci men Type: BLOOD SPECIMEN Ordering Facility: [facility] Address: [address] [place] [id number] Performed By: #### 4 537-7 #### [facility] CLIA [id number] [address] [place] [address] [place] ALP [Catalytic activity/Vol] 72 U/L Normal 34-123 [facility] Comment on above: Order Comment: Speci men Type: BLOOD SPECIMEN Ordering Facility: [facility] Address: [address] [place] [address] Performed By: #### 4 537-7 #### [facility] CLIA [id number] [address] [place] [address] [place] ALT [Catalytic activity/Vol] 22 U/L Normal 7-38 [facility] Comment on above: Order Comment: Speci men Type: BLOOD SPECIMEN Ordering Facility: [facility] Address: [address] [place] [address] Performed By: #### 4 537-7 #### [facility] CLIA [id number] [address] [place] [address] [place] Anion gap [Moles/Vol] 10 mmol/L Normal 9-18 [facility] Comment on above: Order Comment: Speci men Type: BLOOD SPECIMEN Ordering Facility: [facility] Address: [address] [place] [address] Performed By: #### 4 537-7 #### [facility] CLIA [id number] [address] [place], [place] [id number] [place] AST [Catalytic activity/Vol] 9 U/L Low 13-35 [facility] Comment on above: Order Comment: Speci men Type: BLOOD SPECIMEN Ordering Facility: [facility] Address: [address] [place] [address] Performed By: #### 4 537-7 #### [facility] CLIA [id number] [address] [place] [address] [place] Bilirubin [Mass/Vol] 0.2 mg/dL Normal 0.2-1.3 [facility] Comment on above: Order Comment: Speci men Type: BLOOD SPECIMEN Ordering Facility: [facility] Address: [address] [place] [address] Performed By: #### 4 537-7 #### [facility] CLIA [id number] [address] [place] [address] [place] Calcium [Mass/Vol] 9.8 mg/dL Normal 8.5-10.2 [facility] Comment on above: Order Comment: Speci men Type: BLOOD SPECIMEN Ordering Facility: [facility] Address: [address] [place] [address] Performed By: #### 4 537-7 #### [facility] CLIA [id number] [address] [place] [address] [place] Chloride [Moles/Vol] 107 mmol/L High 97-105 [facility] Comment on above: Order Comment: Speci men Type: BLOOD SPECIMEN Ordering Facility: [facility] Address: [address] [place] [address] Performed By: #### 4 537-7 #### [facility] CLIA [id number] [address] [place] [address] [place] CO2 [Moles/Vol] 24 mmol/L Normal 22-30 [facility] Comment on above: Order Comment: Speci men Type: BLOOD SPECIMEN Ordering Facility: [facility] Address: [address] [place] [address] Performed By: #### 4 537-7 #### [facility] CLIA [id number] [address] [place] [address] [place] Creatinine [Mass/Vol] 0.80 mg/dL Normal 0.58-0.96 [facility] Comment on above: Order Comment: Speci men Type: BLOOD SPECIMEN Ordering Facility: [facility] Address: [address] [place] [address] Performed By: #### 4 537-7 #### [facility] CLIA [id number] [address] [place] [address] [place] Creatinine and Glomerular filtration rate.predicted panel (S/P/Bld) 94 mL/min/1.73m??? Normal >=60 [facility] Comment on above: Order Comment: Semaj cortés Type: BLOOD SPECIMEN Ordering Facility: [facility] Address: [address] [place] [address] Result Comment: Erin mated Glomerular Filtration Rate [...] accurately reflect actual GFR. Performed By: #### 4 537-7 #### [facility] CLIA [id number] [address] [place] [address] [place] Glucose [Mass/Vol] 98 mg/dL Normal 74-99 [facility] Comment on above: Order Comment: Semaj cortés Type: BLOOD SPECIMEN Ordering Facility: [facility] Address: [address] [place] [address] Result Comment: The [place] [employer] (ADA) provides guidance for cutoff values for fasting glucose and random glucose. The ADA defines fasting as no caloric intake for at least 8 hours. Fasting plasma glucose results between 100 to 125 mg/dL indicate increased risk for diabetes (prediabetes). Fasting plasma glucose results greater than or equal to 126 mg/dL meet the criteria for diagnosis of diabetes. In the absence of unequivocal hyperglycemia, results should be confirmed by repeat testing. In a patient with classic symptoms of hyperglycemia or hyperglycemic crisis, random plasma glucose results greater than or equal to 200 mg/dL meet the criteria for diagnosis of diabetes. Reference: Standards of Medical Care in Diabetes 2016, [place] [employer]. Diabetes Care. 2016.39(Suppl 1). Performed By: #### 4 537-7 #### [facility] CLIA [id number] [address] [place] [address] [place] Potassium [Moles/Vol] 3.6 mmol/L Low 3.7-5.1 [facility] Comment on above: Order Comment: Speci men Type: BLOOD SPECIMEN Ordering Facility: [facility] Address: [address] [place] [address] Performed By: #### 4 537-7 #### [facility] CLIA [id number] [address] [place] [address] [place] Protein [Mass/Vol] 7.0 g/dL Normal 6.3-8.0 [facility] Comment on above: Order Comment: Speci men Type: BLOOD SPECIMEN Ordering Facility: [facility] Address: [address] [place] [address] Performed By: #### 4 537-7 #### [facility] CLIA [id number] [address] [place] [address] [place] Sodium [Moles/Vol] 141 mmol/L Normal 136-144 [facility] Comment on above: Order Comment: Speci men Type: BLOOD SPECIMEN Ordering Facility: [facility] Address: [address] [place] [address] Performed By: #### 4 537-7 #### [facility] CLIA [id number] [address] [place] [address] [place] Urea nitrogen [Mass/Vol] 17 mg/dL Normal 7-21 [facility] Comment on above: Order Comment: Speci men Type: BLOOD SPECIMEN Ordering Facility: [facility] Address: [address] [place] [address] Performed By: #### 4 537-7 #### [facility] CLIA [id number] [address] [place] [address] [place] ESR Westergren method (Bld) [Velocity]on 06-10-2023 ESR (Bld) [Velocity] 28 mm/h High 0-20 [facility] Comment on above: Order Comment: Speci men Type: BLOOD SPECIMENOrdering Facility: [facility] Address: [address] [place] [address] Performed By: #### 4 537-7 ####[facility] [id number] [facility] [place] [address] [place] CBC W Auto Differential pane l (Bld)on 06-03-2023 Basophils (Bld) [#/Vol] 0.05 10*3/uL Normal <0.11 [facility] Comment on above: Order Comment: Speci men Type: BLOOD SPECIMEN Ordering Facility: [facility] Address: [address] [place] [address] Performed By: #### 5 7021-8 #### [facility] CLIA [id number] [address] [place] [address] Basophils/100 WBC (Bld) 0.4 % Normal [facility] Comment on above: Order Comment: Speci men Type: BLOOD SPECIMEN Ordering Facility: [facility] Address: [address] [place] [address] Performed By: #### 5 7021-8 #### [facility] CLIA [id number] [address] [place] [address] Differential cell count method Nom (Bld) Auto Normal [facility] Comment on above: Order Comment: Speci men Type: BLOOD SPECIMEN Ordering Facility: [facility] Address: [address] [place] [address] Performed By: #### 5 7021-8 #### [facility] CLIA [id number] [address] [place] [address] Eosinophils (Bld) [#/Vol] 0.14 10*3/uL Normal <0.46 [facility] Comment on above: Order Comment: Speci men Type: BLOOD SPECIMEN Ordering Facility: [facility] Address: [address] [place] [address] Performed By: #### 5 7021-8 #### [facility] CLIA [id number] [address] [place] [address] Eosinophils/100 WBC (Bld) 1.1 % Normal [facility] Comment on above: Order Comment: Speci men Type: BLOOD SPECIMEN Ordering Facility: [facility] Address: [address] [place] [address] Performed By: #### 5 7021-8 #### [facility] CLIA [id number] [address] [place] [address] Erythrocyte distribution width (RBC) [Ratio] 14.5 % Normal 11.5-15.0 [facility] Comment on above: Order Comment: Speci men Type: BLOOD SPECIMEN Ordering Facility: [facility] Address: [address] [place] [address] Performed By: #### 5 7021-8 #### [facility] CLIA [id number] [address] [place] [address] Hematocrit (Bld) [Volume fraction] 40.5 % Normal 36.0-46.0 [facility] Comment on above: Order Comment: Speci men Type: BLOOD SPECIMEN Ordering Facility: [facility] Address: [address] [place] [address] Performed By: #### 5 7021-8 #### [facility] CLIA [id number] [address] [place] [address] Hemoglobin (Bld) [Mass/Vol] 13.1 g/dL Normal 11.5-15.5 [facility] Comment on above: Order Comment: Speci men Type: BLOOD SPECIMEN Ordering Facility: [facility] Address: [address] [place] [address] Performed By: #### 5 7021-8 #### [facility] CLIA [id number] [address] [place] [address] Immature granulocytes (Bld) [#/Vol] 0.20 10*3/uL High <0.10 [facility] Comment on above: Order Comment: Speci men Type: BLOOD SPECIMEN Ordering Facility: [facility] Address: [address] [place] [address] Performed By: #### 5 7021-8 #### [facility] CLIA [id number] [address] [place] [address] Immature granulocytes/100 WBC (Bld) 1.6 % Normal [facility] Comment on above: Order Comment: Speci men Type: BLOOD SPECIMEN Ordering Facility: [facility] Address: [address] [place] [address] Performed By: #### 5 7021-8 #### [facility] CLIA [id number] [address] [place] [address] Lymphocytes (Bld) [#/Vol] 4.13 10*3/uL High 1.00-4.00 [facility] Comment on above: Order Comment: Speci men Type: BLOOD SPECIMEN Ordering Facility: [facility] Address: [address] [place] [address] Performed By: #### 5 7021-8 #### [facility] CLIA [id number] [address] [place] [address]86 Lymphocytes/100 WBC (Bld) 32.1 % Normal [facility] Comment on above: Order Comment: Speci men Type: BLOOD SPECIMEN Ordering Facility: [facility] Address: [address] [place] [address] Performed By: #### 5 7021-8 #### [facility] CLIA [id number] [address] [place] [address] MCH (RBC) [Entitic mass] 30.8 pg Normal 26.0-34.0 [facility] Comment on above: Order Comment: Speci men Type: BLOOD SPECIMEN Ordering Facility: [facility] Address: [address] [place] [address] Performed By: #### 5 7021-8 #### [facility] CLIA [id number] [address] [place] [address] 26953 MCHC (RBC) [Mass/Vol] 32.3 g/dL Normal 30.5-36.0 [facility] Comment on above: Order Comment: Speci men Type: BLOOD SPECIMEN Ordering Facility: [facility] Address: [address] [place] [address] Performed By: #### 5 7021-8 #### [facility] CLIA [id number] [address] [place] [address] MCV (RBC) [Entitic vol] 95.1 fL Normal 80.0-100.0 [facility] Comment on above: Order Comment: Speci men Type: BLOOD SPECIMEN Ordering Facility: [facility] Address: [address] [place] [address] Performed By: #### 5 7021-8 #### [facility] CLIA [id number] [address] [place] [address] Monocytes (Bld) [#/Vol] 0.79 10*3/uL Normal <0.87 [facility] Comment on above: Order Comment: Speci men Type: BLOOD SPECIMEN Ordering Facility: [facility] Address: [address] [place] [address] Performed By: #### 5 7021-8 #### [facility] CLIA [id number] [address] [place] [address] Monocytes/100 WBC (Bld) 6.1 % Normal [facility] Comment on above: Order Comment: Speci men Type: BLOOD SPECIMEN Ordering Facility: [facility] Address: [address] [place] [address] Performed By: #### 5 7021-8 #### [facility] CLIA [id number] [address] [place] [address] Neutrophils (Bld) [#/Vol] 7.56 10*3/uL High 1.45-7.50 [facility] Comment on above: Order Comment: Speci men Type: BLOOD SPECIMEN Ordering Facility: [facility] Address: [address] [place] [address] Performed By: #### 5 7021-8 #### [facility] CLIA [id number] [address] [place] [address] Neutrophils/100 WBC (Bld) 58.7 % Normal [facility] Comment on above: Order Comment: Speci men Type: BLOOD SPECIMEN Ordering Facility: [facility] Address: [address] [place] [address] Performed By: #### 5 7021-8 #### [facility] CLIA [id number] [address] [place] [address] Nucleated RBC (Bld) [#/Vol] 10*3/uL Normal <0.01 [facility] Comment on above: Order Comment: Speci men Type: BLOOD SPECIMEN Ordering Facility: [facility] Address: [address] [place] [address] Performed By: #### 5 7021-8 #### [facility] CLIA [id number] [address] [place] [address] Nucleated RBC/100 WBC (Bld) [Ratio] 0.0 /100 WBC Normal [facility] Comment on above: Order Comment: Speci men Type: BLOOD SPECIMEN Ordering Facility: [facility] Address: [address] [place] [address] Performed By: #### 5 7021-8 #### [facility] CLIA [id number] [address] [place] [address] Platelet mean volume (Bld) [Entitic vol] 9.7 fL Normal 9.0-12.7 [facility] Comment on above: Order Comment: Speci men Type: BLOOD SPECIMEN Ordering Facility: [facility] Address: [address] [place] [address] Performed By: #### 5 7021-8 #### [facility] CLIA [id number] [address] [place] [address] Platelets (Bld) [#/Vol] 261 10*3/uL Normal 150-400 [facility] Comment on above: Order Comment: Speci men Type: BLOOD SPECIMEN Ordering Facility: [facility] Address: [address] [place], [place] [address] Performed By: #### 5 7021-8 #### [facility] CLIA [id number] [address] [place] [address] RBC (Bld) [#/Vol] 4.26 10*6/uL Normal 3.90-5.20 [facility] Comment on above: Order Comment: Speci men Type: BLOOD SPECIMEN Ordering Facility: [facility] Address: [address] [place] [address] Performed By: #### 5 7021-8 #### [facility] CLIA [id number] [address] [place] [address] WBC (Bld) [#/Vol] 12.87 10*3/uL High 3.70-11.00 [facility] Comment on above: Order Comment: Speci men Type: BLOOD SPECIMEN Ordering Facility: [facility] Address: [address] [place] [address] Performed By: #### 5 7021-8 #### [facility] CLIA [id number] [address] [place] [address] Comprehensive metabolic 2000 panelon 06-03-2023 Albumin [Mass/Vol] 4.0 g/dL Normal 3.9-4.9 [facility] Comment on above: Order Comment: Speci men Type: BLOOD SPECIMEN Ordering Facility: [facility] Address: [address] [place] [address] Performed By: #### 5 7021-8 #### [facility] CLIA [id number] [address] [place] [address] ALP [Catalytic activity/Vol] 73 U/L Normal 34-123 [facility] Comment on above: Order Comment: Speci men Type: BLOOD SPECIMEN Ordering Facility: [facility] Address: [address] [place] [address] Performed By: #### 5 7021-8 #### [facility] CLIA [id number] [address] [place] [address] ALT [Catalytic activity/Vol] 21 U/L Normal 7-38 [facility] Comment on above: Order Comment: Speci men Type: BLOOD SPECIMEN Ordering Facility: [facility] Address: [address] [place] [address] Performed By: #### 5 7021-8 #### [facility] CLIA [id number] [address] [place] [address] Anion gap [Moles/Vol] 10 mmol/L Normal 9-18 [facility] Comment on above: Order Comment: Speci men Type: BLOOD SPECIMEN Ordering Facility: [facility] Address: [address] [place] [address] Performed By: #### 5 7021-8 #### [facility] CLIA [id number] [address] [place] [address] AST [Catalytic activity/Vol] 10 U/L Low 13-35 [facility] Comment on above: Order Comment: Speci men Type: BLOOD SPECIMEN Ordering Facility: [facility] Address: [address] [place] [address] Performed By: #### 5 7021-8 #### [facility] CLIA [id number] [address] [place] [address] Bilirubin [Mass/Vol] 0.2 mg/dL Normal 0.2-1.3 [facility] Comment on above: Order Comment: Speci men Type: BLOOD SPECIMEN Ordering Facility: [facility] Address: [address] [place] [address] Performed By: #### 5 7021-8 #### [facility] CLIA [id number] [address] [place] [address] Calcium [Mass/Vol] 9.6 mg/dL Normal 8.5-10.2 [facility] Comment on above: Order Comment: Speci men Type: BLOOD SPECIMEN Ordering Facility: [facility] Address: [address] [place] [address] Performed By: #### 5 7021-8 #### [facility] CLIA [id number] [address] [place] [address] Chloride [Moles/Vol] 108 mmol/L High 97-105 [facility] Comment on above: Order Comment: Speci men Type: BLOOD SPECIMEN Ordering Facility: [facility] Address: [address] [place] [address] Performed By: #### 5 7021-8 #### [facility] CLIA [id number] [address] [place] [address] CO2 [Moles/Vol] 24 mmol/L Normal 22-30 [facility] Comment on above: Order Comment: Speci men Type: BLOOD SPECIMEN Ordering Facility: [facility] Address: [address] [place] [address] Performed By: #### 5 7021-8 #### [facility] CLIA [id number] [address] [place] [address] Creatinine [Mass/Vol] 0.70 mg/dL Normal 0.58-0.96 [facility] Comment on above: Order Comment: Speci men Type: BLOOD SPECIMEN Ordering Facility: [facility] Address: [address] [place] [address] Performed By: #### 5 7021-8 #### [facility] CLIA [id number] [address] [place] [address] Creatinine and Glomerular filtration rate.predicted panel (S/P/Bld) 111 mL/min/1.73m??? Normal >=60 [facility] Comment on above: Order Comment: Speci men Type: BLOOD SPECIMEN Ordering Facility: [facility] Address: [address] [place] [address] Result Comment: Erin mated Glomerular Filtration Rate [...] accurately reflect actual GFR. Performed By: #### 5 7021-8 #### [facility] CLIA [id number] [address] [place] [address] Glucose [Mass/Vol] 106 mg/dL High 74-99 [facility] Comment on above: Order Comment: Speci men Type: BLOOD SPECIMEN Ordering Facility: [facility] Address: [address] [place] [address] Result Comment: The [place] [employer] (ADA) provides guidance for cutoff values for fasting glucose and random glucose. The ADA defines fasting as no caloric intake for at least 8 hours. Fasting plasma glucose results between 100 to 125 mg/dL indicate increased risk for diabetes (prediabetes). Fasting plasma glucose results greater than or equal to 126 mg/dL meet the criteria for diagnosis of diabetes. In the absence of unequivocal hyperglycemia, results should be confirmed by repeat testing. In a patient with classic symptoms of hyperglycemia or hyperglycemic crisis, random plasma glucose results greater than or equal to 200 mg/dL meet the criteria for diagnosis of diabetes. Reference: Standards of Medical Care in Diabetes 2016, [place] [employer]. Diabetes Care. 2016.39(Suppl 1). Performed By: #### 5 7021-8 #### [facility] CLIA [id number] [address] [place] [address] Potassium [Moles/Vol] 4.0 mmol/L Normal 3.7-5.1 [facility] Comment on above: Order Comment: Speci men Type: BLOOD SPECIMEN Ordering Facility: [facility] Address: [address] [place] [address] Performed By: #### 5 7021-8 #### [facility] CLIA [id number] [address] [place] [address] Protein [Mass/Vol] 6.8 g/dL Normal 6.3-8.0 [facility] Comment on above: Order Comment: Speci men Type: BLOOD SPECIMEN Ordering Facility: [facility] Address: [address] [place], [place] [address] Performed By: #### 5 7021-8 #### [facility] CLIA [id number] [address] [place] [address] Sodium [Moles/Vol] 142 mmol/L Normal 136-144 [facility] Comment on above: Order Comment: Speci men Type: BLOOD SPECIMEN Ordering Facility: [facility] Address: [address] [place] [address] Performed By: #### 5 7021-8 #### [facility] CLIA [id number] [address] [place] [address] Urea nitrogen [Mass/Vol] 12 mg/dL Normal 7-21 [facility] Comment on above: Order Comment: Speci men Type: BLOOD SPECIMEN Ordering Facility: [facility] Address: [address] [place] [address] Performed By: #### 5 7021-8 #### [facility] CLIA [id number] [address] [place] [address] ESR Westergren method (Bld) [Velocity]on 06-03-2023 ESR (Bld) [Velocity] 35 mm/h High 0-20 [facility] Comment on above: Order Comment: Speci men Type: BLOOD SPECIMEN Ordering Facility: [facility] Address: [address] [place] [address] Performed By: #### 5 7021-8 #### [facility] CLIA [id number] [address] [place] [address] Ferritin SerPl-mCncon 2023 Ferritin [Mass/Vol] 23.4 ng/mL Normal 14.7-205.1 [facility] Comment on above: Order Comment: Speci men Type: BLOOD SPECIMEN Ordering Facility: [facility] Address: [address] [place] [address] Performed By: #### 4 537-7 #### [facility] CLIA [id number] [address] [place] [address] [place] Folate SerPl-mCncon 06-03-19 24 Folate [Mass/Vol] 8.2 ng/mL Normal >4.7 [facility] Comment on above: Order Comment: Speci men Type: BLOOD SPECIMEN Ordering Facility: [facility] Address: [address] [place] [address] Performed By: #### 4 537-7 #### [facility] CLIA [id number] [address] [place] [address] [place] Iron and Iron binding capaci ty panelon 06-03-2023 Iron [Mass/Vol] 67 ug/dL Normal 41-186 [facility] Comment on above: Order Comment: Speci men Type: BLOOD SPECIMEN Ordering Facility: [facility] Address: [address] [place] [address] Performed By: #### 4 537-7 #### [facility] CLIA [id number] [address] [place] [address] [place] Iron binding capacity [Mass/Vol] 395 ug/dL High 232-386 [facility] Comment on above: Order Comment: Speci men Type: BLOOD SPECIMEN Ordering Facility: [facility] Address: [address] [place] [address] Performed By: #### 4 537-7 #### [facility] CLIA [id number] [address] [place] [address] [place] Iron/TIBC [Molar ratio] 17.0 % Normal 15.0-57.0 [facility] Comment on above: Order Comment: Speci men Type: BLOOD SPECIMEN Ordering Facility: [facility] Address: [address] [place] [address] Performed By: #### 4 537-7 #### [facility] CLIA [id number] [address] [place] [address] [place] Vit B12 SerPl-ncon 024 Cobalamin (Vitamin B12) [Mass/Vol] 428 pg/mL Normal 232-1245 [facility] Comment on above: Order Comment: Speci men Type: BLOOD SPECIMEN Ordering Facility: [facility] Address: [address] [place] [address] Performed By: #### 4 537-7 #### [facility] CLIA [id number] [address] [place] [address] [address] [facility] CNNURSEon 05-10-2023 CNNURSE Nurse Visit (HEMASA) JONES HALEY ([id number]) 1980 F Date Time Provider Department 05/10/23 2:00 PM HOD[facility] NURSE DRE [place] During your visit today, we recorded the following information about you: Temperature Pulse Respiration Blood pressure 97.1 degrees 66/minute 18/minute 95/55 Height 1.702 m Wyatt, 05/10/2023 1:14 PM Signed Patient Identification confirmed: yes. Injection given and documented on JUL per provider order. August Wyatt Allergies As of Date: 05/10/2023 Noted Allergy Reaction BACTRIM (SULFAMETHOXAZOLE) 05/31/2014 8 - GI Upset CODEINE 05/31/2014 14 - Other: See Comments Comments: Make her feel Jittery. OTHERWISE, NO SOB/WHEEZING, and NO DYSPHAGIA, NO URTICARIA, NO ANGIOEDEMA CLINDAMYCIN 03/04/2022 16 - Unknown Comments: Patient states it was a long time ago and she did not have a severe reaction. She does not believe she is allergic, she just thinks she just experienced side effects. DOXYCYCLINE 01/19/2022 14 - Other: See Comments Comments: Patient states it was a long time ago and she did not have a severe reaction. She does not believe she is allergic, she just thinks she just experienced side effects. LATEX 05/31/2014 2 - Rash Comments: Patient states it was a long time ago and she did not have a severe reaction. She does not believe she is allergic, she just thinks she just experienced side effects. SULFAMETHOXAZOLE-TRIME THOPRIM 03/04/2022 7 - Swelling Comments: Patient states it was a long time ago and she did not have a severe reaction. She does not believe she is allergic, she just thinks she just experienced side effects. TRIMETHOPRIM 01/19/2022 14 - Other: See Comments Comments: Patient states it was a long time ago and she did not have a severe reaction. She does not believe she is allergic, she just thinks she just experienced side effects. 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 - Phentermine HCl 37.5 mg tablet Take 1 tablet by mouth daily before breakfast for 30 days. - pregabalin (LYRICA) 75 mg capsule take 1 capsule by mouth three times a day - azaTHIOprine (IMURAN) 50 mg tablet TAKE 3 TABLETS BY MOUTH DAILY WITH FOOD. HOLD IF ON ANTIBIOTICS OR ILL. - belimumab (BENLYSTA) 200 mg/mL auto-injector Inject 200mg (1 pen) subcutaneously once weekly - ergocalciferol 50,000 unit capsule (VITAMIN D2, DRISDOL) (take by mouth with food 3times a week, ONE CAPSULE ON Mondays, Fridays) FOR A TOTAL OF 8 WEEKS, then once a week thereafter. - folic acid 1 mg tablet TAKE 1 TABLET BY MOUTH EVERY DAY - hydrOXYchloroQUINE (PLAQUENIL) 200 mg tablet TAKE 1 TAB TWICE A DAY WITH FOOD *SUNSCREEN WHILE OUTDOORS/OPHTHAMOLOGY EVERY 6-12 MONTHS WHILE ON* - predniSONE (DELTASONE) 10 mg tablet Take 40mg daily x 5days, then decrease 5mg every 5days until 10mg daily thereafter - metoprolol tartrate, short acting, (LOPRESSOR) 50 mg tablet Take 50 mg by mouth twice daily. - CPAP/BIPAP/OTHER Type .CPAPSettings into a note to see current settings/supplies/DME information. - acetaminophen (TYLENOL) 500 mg tablet Take 1,000 mg by mouth. - aspirin 81 mg chewable tablet Take 81 mg by mouth. - ibuprofen (MOTRIN) 200 mg tablet Take 600 mg by mouth. 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 (more content not included)... Normal [facility] XR CERVICAL SPINE COMPLETE 4 -5 VIEWSon [...] BY: Alden Thompson MD Normal Not Available [facility]ON[facility] ([id number]) 1980 F Date Time Provider Department 04/22/23 HAMM, BHARGAV HEMASA During your visit today, we recorded the following information about you: Bhargav Hamm, AVILA 04/22/2023 3:49 PM Signed Pt called for Iron results; possible need for transfusion. Pt aware no need for iron infusion at this time. Bhargav Hamm RN Allergies As of Date: 04/22/2023 Noted Allergy Reaction BACTRIM (SULFAMETHOXAZOLE) 05/31/2014 8 - GI Upset CODEINE 05/31/2014 14 - Other: See Comments Comments: Make her feel Jittery. OTHERWISE, NO SOB/WHEEZING, and NO DYSPHAGIA, NO URTICARIA, NO ANGIOEDEMA CLINDAMYCIN 03/04/2022 16 - Unknown Comments: Patient states it was a long time ago and she did not have a severe reaction. She does not believe she is allergic, she just thinks she just experienced side effects. DOXYCYCLINE 01/19/2022 14 - Other: See Comments Comments: Patient states it was a long time ago and she did not have a severe reaction. She does not believe she is allergic, she just thinks she just experienced side effects. LATEX 05/31/2014 2 - Rash Comments: Patient states it was a long time ago and she did not have a severe reaction. She does not believe she is allergic, she just thinks she just experienced side effects. SULFAMETHOXAZOLE-TRIME THOPRIM 03/04/2022 7 - Swelling Comments: Patient states it was a long time ago and she did not have a severe reaction. She does not believe she is allergic, she just thinks she just experienced side effects. TRIMETHOPRIM 01/19/2022 14 - Other: See Comments Comments: Patient states it was a long time ago and she did not have a severe reaction. She does not believe she is allergic, she just thinks she just experienced side effects. Date Reviewed: 04/20/2023 Reviewed by: Wilmer Driver APRN.STRATEGIC SOURCING CONSULTANT - Fully Assessed Reason for Visit: Results [95] Prescriptions as of 04/22/2023 - pregabalin (LYRICA) 75 mg capsule take 1 capsule by mouth three times a day - azaTHIOprine (IMURAN) 50 mg tablet TAKE 3 TABLETS BY MOUTH DAILY WITH FOOD. HOLD IF ON ANTIBIOTICS OR ILL. - belimumab (BENLYSTA) 200 mg/mL Inject 200mg (1 pen) subcutaneously once weekly - ergocalciferol 50,000 unit capsule (VITAMIN D2, DRISDOL) (take by mouth with food 3times a week, ONE CAPSULE ON Mondays, Fridays) FOR A TOTAL OF 8 WEEKS, then once a week thereafter. - folic acid 1 mg tablet TAKE 1 TABLET BY MOUTH EVERY DAY - hydrOXYchloroQUINE (PLAQUENIL) 200 mg tablet TAKE 1 TAB TWICE A DAY WITH FOOD *SUNSCREEN WHILE OUTDOORS/OPHTHAMOLOGY EVERY 6-12 MONTHS WHILE ON* - DULoxetine (CYMBALTA) 20 mg capsule Take 1 capsule by mouth once daily. - predniSONE (DELTASONE) 10 mg tablet Take 40mg daily x 5days, then decrease 5mg every 5days until 10mg daily thereafter - metoprolol tartrate, short acting, (LOPRESSOR) 50 mg tablet Take 50 mg by mouth twice daily. - CPAP/BIPAP/OTHER Type .CPAPSettings into a note to see current settings/supplies/DME information. - CPAP/BIPAP/OTHER Type .CPAPSettings into a note to see current settings/supplies/DME information. - simvastatin (ZOCOR) 20 mg tablet - Biotin 10 mg tab 2 - acyclovir (ZOVIRAX) 400 mg tablet Take 400 mg by mouth once daily. - acetaminophen (TYLENOL) 500 mg tablet Take 1,000 mg by mouth. - aspirin 81 mg chewable tablet Take 81 mg by mouth. - ibuprofen (MOTRIN) 200 mg tablet Take 600 mg by mouth. 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*03/05/2021 Rash and nonspecific skin eruption [R21] 03/05/2021 Swelling of lymph nodes [R59.9] 03/05/2021 Chronic pain of toes of both feet [M79.674, M79*03/05/2021 Bilateral leg weakness [R29.898] 03/05/2021 Hair loss [L65.9] 03/05/2021 Family history of Crohn's disease [Z83.79] 03/05/2021 Long-term use of Plaquenil [Z79.899] 03/05/2021 Vitamin D deficiency [E55.9] 03/06/2021 Fibromyalgia [M79.7] 10/24/2021 Systemic lupus erythematosus (HCC) [M32.9] 10/24/2021 Megaloblastic anemia due to vitamin B12 deficie*03/04/2022 Obesity, Class II, BMI 35-39.9 [E66.9] 03/09/2022 03/10/2023 Discoid lupus erythematosus [L93.0] 02/14/2022 Obstructive sleep apnea syndrome [G47.33] 05/20/2022 Somnolence, daytime [R40.0] 05/20/2022 Long-term use of high-risk medication [Z79.899] 06/15/2022 CHRISTIAN positive [R76.8] 06/15/2022 (more content not included)... Normal [facility] 04-16[facility]2023 [facility] Nurse Visit (BERNADINE) JONES HALEY ([id number]) 1980 F Date Time Provider Department 04/16/23 11:30 AM [facility] [place] During your visit today, we recorded the following information about you: Kenzie Shannon 04/16/2023 11:10 AM Signed Patient Identification confirmed: yes. Injection given and documented on JUL per provider order. Kenzie Shannon Allergies As of Date: 04/16/2023 Noted Allergy Reaction BACTRIM (SULFAMETHOXAZOLE) 05/31/2014 8 - GI Upset CODEINE 05/31/2014 14 - Other: See Comments Comments: Make her feel Jittery. OTHERWISE, NO SOB/WHEEZING, and NO DYSPHAGIA, NO URTICARIA, NO ANGIOEDEMA CLINDAMYCIN 03/04/2022 16 - Unknown Comments: Patient states it was a long time ago and she did not have a severe reaction. She does not believe she is allergic, she just thinks she just experienced side effects. DOXYCYCLINE 01/19/2022 14 - Other: See Comments Comments: Patient states it was a long time ago and she did not have a severe reaction. She does not believe she is allergic, she just thinks she just experienced side effects. LATEX 05/31/2014 2 - Rash Comments: Patient states it was a long time ago and she did not have a severe reaction. She does not believe she is allergic, she just thinks she just experienced side effects. SULFAMETHOXAZOLE-TRIME THOPRIM 03/04/2022 7 - Swelling Comments: Patient states it was a long time ago and she did not have a severe reaction. She does not believe she is allergic, she just thinks she just experienced side effects. TRIMETHOPRIM 01/19/2022 14 - Other: See Comments Comments: Patient states it was a long time ago and she did not have a severe reaction. She does not believe she is allergic, she just thinks she just experienced side effects. 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 - Phentermine HCl 37.5 mg tablet Take 1 tablet by mouth daily before breakfast for 30 days. - pregabalin (LYRICA) 75 mg capsule take 1 capsule by mouth three times a day - azaTHIOprine (IMURAN) 50 mg tablet TAKE 3 TABLETS BY MOUTH DAILY WITH FOOD. HOLD IF ON ANTIBIOTICS OR ILL. - belimumab (BENLYSTA) 200 mg/mL auto-injector Inject 200mg (1 pen) subcutaneously once weekly - ergocalciferol 50,000 unit capsule (VITAMIN D2, DRISDOL) (take by mouth with food 3times a week, ONE CAPSULE ON Mondays, Fridays) FOR A TOTAL OF 8 WEEKS, then once a week thereafter. - folic acid 1 mg tablet TAKE 1 TABLET BY MOUTH EVERY DAY - hydrOXYchloroQUINE (PLAQUENIL) 200 mg tablet TAKE 1 TAB TWICE A DAY WITH FOOD *SUNSCREEN WHILE OUTDOORS/OPHTHAMOLOGY EVERY 6-12 MONTHS WHILE ON* - predniSONE (DELTASONE) 10 mg tablet Take 40mg daily x 5days, then decrease 5mg every 5days until 10mg daily thereafter - metoprolol tartrate, short acting, (LOPRESSOR) 50 mg tablet Take 50 mg by mouth twice daily. - CPAP/BIPAP/OTHER Type .CPAPSettings into a note to see current settings/supplies/DME information. - acetaminophen (TYLENOL) 500 mg tablet Take 1,000 mg by mouth. - aspirin 81 mg chewable tablet Take 81 mg by mouth. - ibuprofen (MOTRIN) 200 mg tablet Take 600 mg by mouth. 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*03/05/2021 Rash and nonspecific skin eruption [R21] 03/05/2021 Swelling of lymph nodes [R59.9] 03/05/2021 Chronic pain of toes of both feet [M79.674, M79*03/05/2021 Bilateral leg weakness [R29.898] 03/05/2021 Hair loss [L65.9] 03/05/2021 Family history of Crohn's disease [Z83.79] 03/05/2021 Long-term use of Plaquenil [Z79.899] 03/05/2021 Vitamin D deficiency [E55.9] 03/06/2021 Fibromyalgia [M79.7] 10/24/2021 Systemic lupus erythematosus (HCC) [M32.9] 10/24/2021 Megaloblastic anemia due to vitamin B12 deficie*03/04/2022 Obesity, Class II, BMI 35-39.9 [E66.9] 03/09/2022 03/10/2023 Discoid lupus erythematosus [L93.0] 02/14/2022 Obstructive sleep apnea syndrome [G47.33] 05/20/2022 Somnolence, daytime [R40.0] 05/20/2022 Long-term use of high-risk medication [Z79.899] 06/15/2022 CHRISTIAN (more content not included)... 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 Najera) Referring Provider: Dr. Madelaine Ferris [...] 8 Weeks - labs 1 week before. - HPI: CASE HISTORY: Currently 2021 ongoing and generalized malaise with elevated IgM. 2020 lymph node biopsy from neck negative for malignancy. 2020 had a respiratory illness with dyspnea, possible bronchitis, no cough Updated Visit, April 20, 2023: Jones Haley [...] lower lip done [address] [facility] - awaiting results. 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 She has been told they [...] fever. She has a strange sensation to (more content not included)... Normal [facility] CBC W Auto Differential pane l (Bld)on 04-09-2023 Basophils (Bld) [#/Vol] 0.05 10*3/uL Normal <0.11 [facility] Comment on above: Order Comment: Speci men Type: BLOOD SPECIMEN Ordering Facility: [facility] Address: [address] [place] [address] Performed By: #### 4 537-7 #### [facility] CLIA [id number] [address] [place] [address] [place] Basophils/100 WBC (Bld) 0.5 % Normal [facility] Comment on above: Order Comment: Speci men Type: BLOOD SPECIMEN Ordering Facility: [facility] Address: [address] [place] [address] Performed By: #### 4 537-7 #### [facility] CLIA [id number] [address] [place] [address] [place] Differential cell count method Nom (Bld) Auto Normal [facility] Comment on above: Order Comment: Speci men Type: BLOOD SPECIMEN Ordering Facility: [facility] Address: [address] [place] [address] Performed By: #### 4 537-7 #### [facility] CLIA [id number] [address] [place] [address] [place] Eosinophils (Bld) [#/Vol] 0.09 10*3/uL Normal <0.46 [facility] Comment on above: Order Comment: Speci men Type: BLOOD SPECIMEN Ordering Facility: [facility] Address: [address] [place] [address] Performed By: #### 4 537-7 #### [facility] CLIA [id number] [address] [place] [address] [place] Eosinophils/100 WBC (Bld) 0.9 % Normal [facility] Comment on above: Order Comment: Speci men Type: BLOOD SPECIMEN Ordering Facility: [facility] Address: [address] [place] [address] Performed By: #### 4 537-7 #### [facility] CLIA [id number] [address] [place] [address] [place] Erythrocyte distribution width (RBC) [Ratio] 14.8 % Normal 11.5-15.0 [facility] Comment on above: Order Comment: Speci men Type: BLOOD SPECIMEN Ordering Facility: [facility] Address: [address] [place] [address] Performed By: #### 4 537-7 #### [facility] CLIA [id number] [address] [place] [address] [place] Hematocrit (Bld) [Volume fraction] 41.1 % Normal 36.0-46.0 [facility] Comment on above: Order Comment: Speci men Type: BLOOD SPECIMEN Ordering Facility: [facility] Address: [address] [place] [address] Performed By: #### 4 537-7 #### [facility] CLIA [id number] [address] [place] [address] [place] Hemoglobin (Bld) [Mass/Vol] 13.1 g/dL Normal 11.5-15.5 [facility] Comment on above: Order Comment: Speci men Type: BLOOD SPECIMEN Ordering Facility: [facility] Address: [address] [place] [address] Performed By: #### 4 537-7 #### [facility] CLIA [id number] [address] [place] [address] [place] Immature granulocytes (Bld) [#/Vol] 0.05 10*3/uL Normal <0.10 [facility] Comment on above: Order Comment: Speci men Type: BLOOD SPECIMEN Ordering Facility: [facility] Address: [address] [place] [address] Performed By: #### 4 537-7 #### [facility] CLIA [id number] [address] [place] [address] [place] Immature granulocytes/100 WBC (Bld) 0.5 % Normal [facility] Comment on above: Order Comment: Speci men Type: BLOOD SPECIMEN Ordering Facility: [facility] Address: [address] [place] [address] Performed By: #### 4 537-7 #### [facility] CLIA [id number] [address] [place] [address] [place] Lymphocytes (Bld) [#/Vol] 2.90 10*3/uL Normal 1.00-4.00 [facility] Comment on above: Order Comment: Speci men Type: BLOOD SPECIMEN Ordering Facility: [facility] Address: [address] [place] [address] Performed By: #### 4 537-7 #### [facility] CLIA [id number] [address] [place] [address] [place] Lymphocytes/100 WBC (Bld) 28.9 % Normal [facility] Comment on above: Order Comment: Speci men Type: BLOOD SPECIMEN Ordering Facility: [facility] Address: [address] [place] [address] Performed By: #### 4 537-7 #### [facility] CLIA [id number] [address] [place] [address] [place] MCH (RBC) [Entitic mass] 30.5 pg Normal 26.0-34.0 [facility] Comment on above: Order Comment: Speci men Type: BLOOD SPECIMEN Ordering Facility: [facility] Address: [address] [place] [address] Performed By: #### 4 537-7 #### [facility] CLIA [id number] [address] [place] [address] [place] MCHC (RBC) [Mass/Vol] 31.9 g/dL Normal 30.5-36.0 [facility] Comment on above: Order Comment: Speci men Type: BLOOD SPECIMEN Ordering Facility: [facility] Address: [address] [place] [address] Performed By: #### 4 537-7 #### [facility] CLIA [id number] [address] [place] [address] [place] MCV (RBC) [Entitic vol] 95.8 fL Normal 80.0-100.0 [facility] Comment on above: Order Comment: Speci men Type: BLOOD SPECIMEN Ordering Facility: [facility] Address: [address] [place] [address] Performed By: #### 4 537-7 #### [facility] CLIA [id number] [address] [place] [address] [place] Monocytes (Bld) [#/Vol] 0.54 10*3/uL Normal <0.87 [facility] Comment on above: Order Comment: Speci men Type: BLOOD SPECIMEN Ordering Facility: [facility] Address: [address] [place] [address] Performed By: #### 4 537-7 #### [facility] CLIA [id number] [address] [place] [address] [place] Monocytes/100 WBC (Bld) 5.4 % Normal [facility] Comment on above: Order Comment: Speci men Type: BLOOD SPECIMEN Ordering Facility: [facility] Address: [address] [place] [address] Performed By: #### 4 537-7 #### [facility] CLIA [id number] [address] [place] [address] [place] Neutrophils (Bld) [#/Vol] 6.41 10*3/uL Normal 1.45-7.50 [facility] Comment on above: Order Comment: Speci men Type: BLOOD SPECIMEN Ordering Facility: [facility] Address: [address] [place] [address] Performed By: #### 4 537-7 #### [facility] CLIA [id number] [address] [place] [address] [place] Neutrophils/100 WBC (Bld) 63.8 % Normal [facility] Comment on above: Order Comment: Speci men Type: BLOOD SPECIMEN Ordering Facility: [facility] Address: [address] [place] [address] Performed By: #### 4 537-7 #### [facility] CLIA [id number] [address] [place] [address] [place] Nucleated RBC (Bld) [#/Vol] 10*3/uL Normal <0.01 [facility] Comment on above: Order Comment: Speci men Type: BLOOD SPECIMEN Ordering Facility: [facility] Address: [address] [place] [address] Performed By: #### 4 537-7 #### [facility] CLIA [id number] [address] [place] [address] [place] Nucleated RBC/100 WBC (Bld) [Ratio] 0.0 /100 WBC Normal [facility] Comment on above: Order Comment: Speci men Type: BLOOD SPECIMEN Ordering Facility: [facility] Address: [address] [place] [address] Performed By: #### 4 537-7 #### [facility] CLIA [id number] [address] [place] [address] [place] Platelet mean volume (Bld) [Entitic vol] 9.4 fL Normal 9.0-12.7 [facility] Comment on above: Order Comment: Speci men Type: BLOOD SPECIMEN Ordering Facility: [facility] Address: [address] [place] [address] Performed By: #### 4 537-7 #### [facility] CLIA [id number] [address] [place] [address] [place] Platelets (Bld) [#/Vol] 290 10*3/uL Normal 150-400 [facility] Comment on above: Order Comment: Speci men Type: BLOOD SPECIMEN Ordering Facility: [facility] Address: [address] [place] [address] Performed By: #### 4 537-7 #### [facility] CLIA [id number] [address] [place] [address] [place] RBC (Bld) [#/Vol] 4.29 10*6/uL Normal 3.90-5.20 [facility] Comment on above: Order Comment: Speci men Type: BLOOD SPECIMEN Ordering Facility: [facility] Address: [address] [place] [address] Performed By: #### 4 537-7 #### [facility] CLIA [id number] [address] [place] [address] [place] WBC (Bld) [#/Vol] 10.04 10*3/uL Normal 3.70-11.00 [facility] Comment on above: Order Comment: Speci men Type: BLOOD SPECIMEN Ordering Facility: [facility] Address: [address] [place] [address] Performed By: #### 4 537-7 #### [facility] CLIA [id number] [address] [place] [address] [place] Comprehensive metabolic 2000 panelon 04-09-2023 Albumin [Mass/Vol] 4.1 g/dL Normal 3.9-4.9 [facility] Comment on above: Order Comment: Speci men Type: BLOOD SPECIMENOrdering Facility: [facility] Address: [address] [place] [address] Performed By: #### 2 4323-8 ####[facility] [id number] [place] [address] ALP [Catalytic activity/Vol] 74 U/L Normal 34-123 [facility] Comment on above: Order Comment: Speci men Type: BLOOD SPECIMENOrdering Facility: [facility] Address: [address] [place] [address] Performed By: #### 2 4323-8 ####[facility] [id number] [place] [address] ALT [Catalytic activity/Vol] 17 U/L Normal 7-38 [facility] Comment on above: Order Comment: Speci men Type: BLOOD SPECIMENOrdering Facility: [facility] Address: [address] [place] [address] Performed By: #### 2 4323-8 ####[facility] [id number] [place] [address] Anion gap [Moles/Vol] 12 mmol/L Normal 9-18 [facility] Comment on above: Order Comment: Speci men Type: BLOOD SPECIMENOrdering Facility: [facility] Address: [address] [place] [address] Performed By: #### 2 4323-8 ####[facility] [id number] [place] [address] AST [Catalytic activity/Vol] 11 U/L Low 13-35 [facility] Comment on above: Order Comment: Speci men Type: BLOOD SPECIMENOrdering Facility: [facility] Address: [address] [place] [address] Performed By: #### 2 4323-8 ####[facility] [id number] [place] [address] Bilirubin [Mass/Vol] 0.2 mg/dL Normal 0.2-1.3 [facility] Comment on above: Order Comment: Speci men Type: BLOOD SPECIMENOrdering Facility: [facility] Address: [address] [place] [address] Performed By: #### 2 4323-8 ####[facility] [id number] [place] [address] Calcium [Mass/Vol] 9.4 mg/dL Normal 8.5-10.2 [facility] Comment on above: Order Comment: Speci men Type: BLOOD SPECIMENOrdering Facility: [facility] Address: [address] [place] [address] Performed By: #### 2 4323-8 ####[facility] [id number] [place] [address] Chloride [Moles/Vol] 106 mmol/L High 97-105 [facility] Comment on above: Order Comment: Speci men Type: BLOOD SPECIMENOrdering Facility: [facility] Address: [address] [place] [address] Performed By: #### 2 4323-8 ####[facility] [id number] [place] [address] CO2 [Moles/Vol] 26 mmol/L Normal 22-30 [facility] Comment on above: Order Comment: Speci men Type: BLOOD SPECIMENOrdering Facility: [facility] Address: [address] [place] [address] Performed By: #### 2 4323-8 ####[facility] [id number] [place] [address] Creatinine [Mass/Vol] 0.89 mg/dL Normal 0.58-0.96 [facility] Comment on above: Order Comment: Speci men Type: BLOOD SPECIMENOrdering Facility: [facility] Address: [address] [place] [address] Performed By: #### 2 4323-8 ####[facility] [id number] [place] [address] Creatinine and Glomerular filtration rate.predicted panel (S/P/Bld) 83 mL/min/1.73m??? Normal >=60 [facility] Comment on above: Order Comment: Speci men Type: BLOOD SPECIMENOrdering Facility: [facility] Address: [address] [place] [address] Result Comment: Erin mated Glomerular Filtration Rate [...] actual GFR. Performed By: #### 2 4323-8 ####[facility] [id number] [place] [address] Glucose [Mass/Vol] 120 mg/dL High 74-99 [facility] Comment on above: Order Comment: Speci men Type: BLOOD SPECIMENOrdering Facility: [facility] Address: [address] [place] [address] Result Comment: The [place] [employer] (ADA) provides guidance for cutoff values for fasting glucose and random glucose. The ADA defines fasting as no caloric intake for at least 8 hours. Fasting plasma glucose results between 100 to 125 mg/dL indicate increased risk for diabetes (prediabetes). Fasting plasma glucose results greater than or equal to 126 mg/dL meet the criteria for diagnosis of diabetes. In the absence of unequivocal hyperglycemia, results should be confirmed by repeat testing. In a patient with classic symptoms of hyperglycemia or hyperglycemic crisis, random plasma glucose results greater than or equal to 200 mg/dL meet the criteria for diagnosis of diabetes. Reference: Standards of Medical Care in Diabetes 2016, [place] [employer]. Diabetes Care. 2016.39(Suppl 1). Performed By: #### 2 4323-8 ####[facility] [id number] [place] [address] Potassium [Moles/Vol] 3.7 mmol/L Normal 3.7-5.1 [facility] Comment on above: Order Comment: Speci men Type: BLOOD SPECIMENOrdering Facility: [facility] Address: [address] [place] [address] Performed By: #### 2 4323-8 ####[facility]IA [id number] [place] [address] Protein [Mass/Vol] 6.7 g/dL Normal 6.3-8.0 [facility] Comment on above: Order Comment: Speci men Type: BLOOD SPECIMENOrdering Facility: [facility] Address: [address] [place] [address] Performed By: #### 2 4323-8 ####[facility] [id number] [place] [address] Sodium [Moles/Vol] 144 mmol/L Normal 136-144 [facility] Comment on above: Order Comment: Speci men Type: BLOOD SPECIMENOrdering Facility: [facility] Address: [address] [place] [address] Performed By: #### 2 4323-8 ####[facility] [id number] [place] [address] Urea nitrogen [Mass/Vol] 24 mg/dL High 7-21 [facility] Comment on above: Order Comment: Speci men Type: BLOOD SPECIMENOrdering Facility: [facility] Address: [address] [place] [address] Performed By: #### 2 4323-8 ####[facility] [id number] [place] [address] Ferritin SerPl-mCncon 2022 Ferritin [Mass/Vol] 21.2 ng/mL Normal 14.7-205.1 [facility] Comment on above: Order Comment: Speci men Type: BLOOD SPECIMEN Ordering Facility: [facility] Address: [address] [place] [address] Performed By: #### I NSLAB #### [facility] CLIA [id number] [address] [place], [place] [address] [place] [address] [place] Folate SerPl-mCncon 04-09-20 Folate [Mass/Vol] 10.7 ng/mL Normal >4.7 [facility] Comment on above: Order Comment: Speci men Type: BLOOD SPECIMEN Ordering Facility: [facility] Address: [address] [place] [address] Performed By: #### I NSLAB #### [facility] CLIA [id number] [address] [place] [address] [place] INSULIN ANTIBODY BLDon 04-09 Insulin Ab Qn (S) <0.4 Normal <0.4 [facility] Comment on above: Order Comment: Speci men Type: BLOOD SPECIMEN Ordering Facility: [facility] Address: [address] [place] [address] Result Comment: Anti -insulin antibody test is used as an aid in diagnosis and prognosis of autoimmune diabetes mellitus in combination with other tests such as anti-GAD65 and anti-IA-2 antibody. A single negative result cannot rule out autoimmune diabetes mellitus. The test is not reliable in patients who had previously received exogenous insulin. Clinical correlation is required. Performed By: #### I NSLAB #### [facility] CLIA [id number] [address] [place] [address] [place] INSULIN ANTIBODY, QUALITATIVE Negative Normal Negative [facility] Comment on above: Order Comment: Semaj cortés Type: BLOOD SPECIMEN Ordering Facility: [facility] Address: [address] [place] [address] Performed By: #### I NSLAB #### [facility] CLIA [id number] [address] [place] [address] [place] Insulin SerPl-aCncon 023 Insulin Qn 266.5 u[IU]/mL High 3.0-25.0 [facility] Comment on above: Order Comment: Speci men Type: BLOOD SPECIMEN Ordering Facility: [facility] Address: [address] [place] [address] Performed By: #### I NSLAB #### [facility] CLIA [id number] [address] [place] [address] [place] [employer] capaci ty panelon 04-09-2023 Iron [Mass/Vol] 105 ug/dL Normal 41-186 [facility] Comment on above: Order Comment: Speci men Type: BLOOD SPECIMEN Ordering Facility: [facility] Address: [address] [place] [address] Performed By: #### 4 537-7 #### [facility] CLIA [id number] [address] [place] [address] [place] Iron binding capacity [Mass/Vol] 414 ug/dL High 232-386 [facility] Comment on above: Order Comment: Speci men Type: BLOOD SPECIMEN Ordering Facility: [facility] Address: [address] [place] [address] Performed By: #### 4 537-7 #### [facility] CLIA [id number] [address] [place] [address] [place] Iron/TIBC [Molar ratio] 25.4 % Normal 15.0-57.0 [facility] Comment on above: Order Comment: Speci men Type: BLOOD SPECIMEN Ordering Facility: [facility] Address: [address] [place] [address] Performed By: #### 4 537-7 #### [facility] CLIA [id number] [address] [place] [address] [place] Vit B12 [facility] 11-17-2 023 Cobalamin (Vitamin B12) [Mass/Vol] 370 pg/mL Normal 232-1245 [facility] Comment on above: Order Comment: Speci men Type: BLOOD SPECIMEN Ordering Facility: [facility] Address: [address] [place] [address] Performed By: #### I NSLAB #### [facility] CLIA [id number] [address] [place] [address] [place] CNNURSEon 03-19-2023 CNNURSE Nurse Visit (HEMASA) JONES HALEY ([id number]) 1980 F Date Time Provider Department 03/19/23 11:00 AM MA NURSE DRE JOANNA COLINDRES During your visit today, we recorded the following information about you: Temperature Pulse Respiration Blood pressure 97.7 degrees 75/minute 16/minute 111/54 Kenzie Shannon 03/19/2023 11:22 AM Signed Patient Identification confirmed: yes. Injection given and documented on JUL per provider order. Kenzie Shannon Allergies As of Date: 03/19/2023 Noted Allergy Reaction BACTRIM (SULFAMETHOXAZOLE) 05/31/2014 8 - GI Upset CODEINE 05/31/2014 14 - Other: See Comments Comments: Make her feel Jittery. OTHERWISE, NO SOB/WHEEZING, and NO DYSPHAGIA, NO URTICARIA, NO ANGIOEDEMA CLINDAMYCIN 03/04/2022 16 - Unknown Comments: Patient states it was a long time ago and she did not have a severe reaction. She does not believe she is allergic, she just thinks she just experienced side effects. DOXYCYCLINE 01/19/2022 14 - Other: See Comments Comments: Patient states it was a long time ago and she did not have a severe reaction. She does not believe she is allergic, she just thinks she just experienced side effects. LATEX 05/31/2014 2 - Rash Comments: Patient states it was a long time ago and she did not have a severe reaction. She does not believe she is allergic, she just thinks she just experienced side effects. SULFAMETHOXAZOLE-TRIME THOPRIM 03/04/2022 7 - Swelling Comments: Patient states it was a long time ago and she did not have a severe reaction. She does not believe she is allergic, she just thinks she just experienced side effects. TRIMETHOPRIM 01/19/2022 14 - Other: See Comments Comments: Patient states it was a long time ago and she did not have a severe reaction. She does not believe she is allergic, she just thinks she just experienced side effects. 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 HOLD IF ON ANTIBIOTICS OR ILL. - belimumab (BENLYSTA) 200 mg/mL Inject 200mg (1 pen) subcutaneously once weekly - ergocalciferol 50,000 unit capsule (VITAMIN D2, DRISDOL) (take by mouth with food 3times a week, ONE CAPSULE ON Mondays, Fridays) FOR A TOTAL OF 8 WEEKS, then once a week thereafter. - folic acid 1 mg tablet TAKE 1 TABLET BY MOUTH EVERY DAY - hydrOXYchloroQUINE (PLAQUENIL) 200 mg tablet TAKE 1 TAB TWICE A DAY WITH FOOD *SUNSCREEN WHILE OUTDOORS/OPHTHAMOLOGY EVERY 6-12 MONTHS WHILE ON* - DULoxetine (CYMBALTA) 20 mg capsule Take 1 capsule by mouth once daily. - predniSONE (DELTASONE) 10 mg tablet Take 40mg daily x 5days, then decrease 5mg every 5days until 10mg daily thereafter - metoprolol tartrate, short acting, (LOPRESSOR) 50 mg tablet Take 50 mg by mouth twice daily. - CPAP/BIPAP/OTHER Type .CPAPSettings into a note to see current settings/supplies/DME information. - CPAP/BIPAP/OTHER Type .CPAPSettings into a note to see current settings/supplies/DME information. - simvastatin (ZOCOR) 20 mg tablet - Biotin 10 mg tab 2 - acyclovir (ZOVIRAX) 400 mg tablet Take 400 mg by mouth once daily. - acetaminophen (TYLENOL) 500 mg tablet Take 1,000 mg by mouth. - aspirin 81 mg chewable tablet Take 81 mg by mouth. - ibuprofen (MOTRIN) 200 mg tablet Take 600 mg by mouth. 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*03/05/2021 Rash and nonspecific skin eruption [R21] 03/05/2021 Swelling of lymph nodes [R59.9] 03/05/2021 Chronic pain of toes of both feet [M79.674, M79*03/05/2021 Bilateral leg weakness [R29.898] 03/05/2021 Hair loss [L65.9] 03/05/2021 Family history of Crohn's disease [Z83.79] 03/05/2021 Long-term use of Plaquenil [Z79.899] 03/05/2021 Vitamin D deficiency [E55.9] 03/06/2021 Fibromyalgia [M79.7] 10/24/2021 Systemic lupus erythematosus (HCC) [M32.9] 10/24/2021 Megaloblastic anemia due to vitamin B12 deficie*03/04/2022 Obesity, Class II, BMI 35-39.9 [E66.9] 03/09/202202/21 (more content not included)... Normal [facility] CNNURSEon 03-11-2023 CNNURSE Nurse Visit (MAREK) JONES HALEY ([id number]) 1980 F Date Time Provider Department 03/11/23 7:30 AM NURSE [facility] NICIKE JARA During your visit today, we recorded the following information about you: Beatriz Sanchez LPN 03/11/2023 8:30 AM Signed AMBULATORY PATIENT EDUCATION TOPIC: SURVIVAL SKILLS: weekly [...] By Beatriz Sanchez LPN In Department: RHEUMATOLOGY Allergies As of Date: 03/11/2023 Noted Allergy Reaction BACTRIM (SULFAMETHOXAZOLE) 05/31/2014 8 - GI Upset CODEINE 05/31/2014 14 - Other: See Comments Comments: Make her feel Jittery. OTHERWISE, NO SOB/WHEEZING, and NO DYSPHAGIA, NO URTICARIA, NO ANGIOEDEMA CLINDAMYCIN 03/04/2022 16 - Unknown Comments: Patient states it was a long time ago and she did not have a severe reaction. She does not believe she is allergic, she just thinks she just experienced side effects. DOXYCYCLINE 01/19/2022 14 - Other: See Comments Comments: Patient states it was a long time ago and she did not have a severe reaction. She does not believe she is allergic, she just thinks she just experienced side effects. LATEX 05/31/2014 2 - Rash Comments: Patient states it was a long time ago and she did not have a severe reaction. She does not believe she is allergic, she just thinks she just experienced side effects. SULFAMETHOXAZOLE-TRIME THOPRIM 03/04/2022 7 - Swelling Comments: Patient states it was a long time ago and she did not have a severe reaction. She does not believe she is allergic, she just thinks she just experienced side effects. TRIMETHOPRIM 01/19/2022 14 - Other: See Comments Comments: Patient states it was a long time ago and she did not have a severe reaction. She does not believe she is allergic, she just thinks she just experienced side effects. Date Reviewed: 02/19/2023 Reviewed by: Stacy Gutiérrez Ma - Fully Assessed Reason for Visit: Allied Health Visit [5] Cmt: Benlysta teaching Primary Visit Diagnosis:Systemic lupus erythematosus, unspecified SLE type, unspecified organ involvement status (HCC) [M32.9] Prescriptions as of 03/11/2023 - pregabalin (LYRICA) 75 mg capsule take 1 capsule by mouth three times a day - azaTHIOprine (IMURAN) 50 mg tablet TAKE 3 TABLETS BY MOUTH DAILY WITH FOOD. HOLD IF ON ANTIBIOTICS OR ILL. - belimumab (BENLYSTA) 200 mg/mL Inject 200mg (1 pen) subcutaneously once weekly - ergocalciferol 50,000 unit capsule (VITAMIN D2, DRISDOL) (take by mouth with food 3times a week, ONE CAPSULE ON Mondays, Fridays) FOR A TOTAL OF 8 WEEKS, then once a week thereafter. - folic acid 1 mg tablet TAKE 1 TABLET BY MOUTH EVERY DAY - hydrOXYchloroQUINE (PLAQUENIL) 200 mg tablet TAKE 1 TAB TWICE A DAY WITH FOOD *SUNSCREEN WHILE OUTDOORS/OPHTHAMOLOGY EVERY 6-12 MONTHS WHILE ON* - DULoxetine (CYMBALTA) 20 mg capsule Take 1 capsule by mouth once daily. - predniSONE (DELTASONE) 10 mg tablet Take 40mg daily x 5days, then decrease 5mg every 5days until 10mg daily thereafter - metoprolol tartrate, short acting, (LOPRESSOR) 50 mg tablet Take 50 mg by mouth twice daily. - CPAP/BIPAP/OTHER Type .CPAPSettings into a note to see current settings/supplies/DME information. - CPAP/BIPAP/OTHER Type .CPAPSettings into a note to see current settings/supplies/DME information. - simvastatin (ZOCOR) 20 mg tablet - Biotin 10 mg tab 2 - acyclovir (ZOVIRAX) 400 mg tablet Take 400 mg by mouth once daily. - acetaminophen (TYLENOL) 500 mg tablet Take 1,000 mg by mouth. - aspirin 81 mg chewable tablet Take 81 mg by mouth. - ibuprofen (MOTRIN) 200 mg tablet Take 600 mg by mouth. Problem List As Of Date 03/11/2023 Noted Resolved Vitamin B12 deficiency [E53.8] 05/31/2014 Obesity (BMI 30-39.9) [E66.9] 05/31/2014 07/06/2016 Hyperlipidemia [E78.5] 05/31/2014 Ataxia [R27.0] 05/31/2014 Chronic bilateral low back pain with bilateral *05/31/2014 Depression, recurrent (HCC) [F33.9] Chronic pain syndrome [G89.4] Pain, hip [M25.559] Obesity [E66.9] Tobacco use disorder [F17.200] Bilateral sacroiliitis (HCC) [M46.1] 09/13/2015 Elevated sed rate [R70.0] (more content not included)... Normal [facility] CNPNon 03-01-2023 CNPN Telephone (DAVIDJONATHANN) JONES HALEY ([id number]) 1980 F Date Time Provider Department 03/01/23 LYNNE NI During your visit today, we recorded the following information about you: Beatriz Sanchez LPN 03/01/2023 2:40 PM Signed [facility] Placed on your desk for review. Lynne Ni MD 03/01/2023 3:27 PM Signed For chart: Eye exam 02/26/23 no ocular complication related to medication. Allergies As of Date: 03/01/2023 Noted Allergy Reaction BACTRIM (SULFAMETHOXAZOLE) 05/31/2014 8 - GI Upset CODEINE 05/31/2014 14 - Other: See Comments Comments: Make her feel Jittery. OTHERWISE, NO SOB/WHEEZING, and NO DYSPHAGIA, NO URTICARIA, NO ANGIOEDEMA CLINDAMYCIN 03/04/2022 16 - Unknown Comments: Patient states it was a long time ago and she did not have a severe reaction. She does not believe she is allergic, she just thinks she just experienced side effects. DOXYCYCLINE 01/19/2022 14 - Other: See Comments Comments: Patient states it was a long time ago and she did not have a severe reaction. She does not believe she is allergic, she just thinks she just experienced side effects. LATEX 05/31/2014 2 - Rash Comments: Patient states it was a long time ago and she did not have a severe reaction. She does not believe she is allergic, she just thinks she just experienced side effects. SULFAMETHOXAZOLE-TRIME THOPRIM 03/04/2022 7 - Swelling Comments: Patient states it was a long time ago and she did not have a severe reaction. She does not believe she is allergic, she just thinks she just experienced side effects. TRIMETHOPRIM 01/19/2022 14 - Other: See Comments Comments: Patient states it was a long time ago and she did not have a severe reaction. She does not believe she is allergic, she just thinks she just experienced side effects. Date Reviewed: 02/19/2023 Reviewed by: Stacy Gutiérrez Ma - Fully Assessed Reason for Visit: Results [95] Cmt: Eye Exam Prescriptions as of 03/01/2023 - azaTHIOprine (IMURAN) 50 mg tablet TAKE 3 TABLETS BY MOUTH DAILY WITH FOOD. HOLD IF ON ANTIBIOTICS OR ILL. - belimumab (BENLYSTA) 200 mg/mL Inject 200mg (1 pen) subcutaneously once weekly - ergocalciferol 50,000 unit capsule (VITAMIN D2, DRISDOL) (take by mouth with food 3times a week, ONE CAPSULE ON Mondays, Fridays) FOR A TOTAL OF 8 WEEKS, then once a week thereafter. - folic acid 1 mg tablet TAKE 1 TABLET BY MOUTH EVERY DAY - hydrOXYchloroQUINE (PLAQUENIL) 200 mg tablet TAKE 1 TAB TWICE A DAY WITH FOOD *SUNSCREEN WHILE OUTDOORS/OPHTHAMOLOGY EVERY 6-12 MONTHS WHILE ON* - dulaglutide (TRULICITY) 1.5 mg/0.5 mL pen injector Inject 1.5 mg subcutaneously one time a week. - DULoxetine (CYMBALTA) 20 mg capsule Take 1 capsule by mouth once daily. - dulaglutide (TRULICITY) 0.75 mg/0.5 mL pen injector Inject 0.75 mg subcutaneously one time a week. - predniSONE (DELTASONE) 10 mg tablet Take 40mg daily x 5days, then decrease 5mg every 5days until 10mg daily thereafter - pregabalin (LYRICA) 75 mg capsule TAKE 1 CAPSULE BY MOUTH 3 TIMES A DAY - metoprolol tartrate, short acting, (LOPRESSOR) 50 mg tablet Take 50 mg by mouth twice daily. - CPAP/BIPAP/OTHER Type .CPAPSettings into a note to see current settings/supplies/DME information. - CPAP/BIPAP/OTHER Type .CPAPSettings into a note to see current settings/supplies/DME information. - simvastatin (ZOCOR) 20 mg tablet - Biotin 10 mg tab 2 - acyclovir (ZOVIRAX) 400 mg tablet Take 400 mg by mouth once daily. - acetaminophen (TYLENOL) 500 mg tablet Take 1,000 mg by mouth. - aspirin 81 mg chewable tablet Take 81 mg by mouth. - ibuprofen (MOTRIN) 200 mg tablet Take 600 mg by mouth. 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 Normal [facility] CBC AUTO DIFFon 09-24-2022 BASO # 0.1 103/ul Normal 0.0-0.1 [facility] Comment on above: Performed By: #### U AMIC #### [facility] [address] [address] [address] Manda York Basophils/100 WBC (Bld) 0.6 % Normal 0.2-2.0 [facility] Comment on above: Performed By: #### U AMIC #### [facility] [address] [address] [address] Manda York EO # 0.1 103/ul Normal 0.0-0.7 [facility] Comment on above: Performed By: #### U AMIC #### [facility] [address] [address] [address] Manda York Eosinophils/100 WBC (Bld) 0.6 % Critically low 0.9-7.0 [facility] Comment on above: Performed By: #### U AMIC #### [facility] [address] [address] [address] Manda York Erythrocyte distribution width (RBC) [Ratio] 14.6 % Normal 11.0-15.0 [facility] Comment on above: Performed By: #### U AMIC #### [facility] [address] [address] [address] Manda York Hematocrit (Bld) [Volume fraction] 43.4 % Normal 36.0-48.0 [facility] Comment on above: Performed By: #### U AMIC #### [facility] [address] [address] [address] Manda York Hemoglobin (Bld) [Mass/Vol] 13.7 g/dL Normal 12.0-16.0 [facility] Comment on above: Performed By: #### U AMIC #### [facility] [address] [address] [address] Manda York IG # 0.12 10e3/ul Critically high 0.00-0.03 [facility] Comment on above: Performed By: #### U AMIC #### [facility] [address] [address] [address] Manda York IG % 0.8 % Critically high 0.0-0.5 [place] Comment on above: Performed By: #### U AMIC #### [facility] [address] [address] [address] Manda York LYMPH # 2.6 103/ul Normal 1.2-3.8 [facility] Comment on above: Performed By: #### U AMIC #### [facility] [address] [address] [address] Manda York Lymphocytes/100 WBC (Bld) 18.3 % Critically low 20.5-60.0 [facility] Comment on above: Performed By: #### U AMIC #### [facility] [address] [address] [address] Manda York MANUAL DIFF REQ NO Normal [place] Comment on above: Performed By: #### U AMIC #### [facility] [address] [address] [address] Manda York MCH (RBC) [Entitic mass] 29.0 pg Normal 26.7-34.0 [facility] Comment on above: Performed By: #### U AMIC #### [facility] [address] [address] [address] Manda York MCHC (RBC) [Mass/Vol] 31.6 g/dL Normal 29.9-35.2 [facility] Comment on above: Performed By: #### U AMIC #### [facility] [address] [address] [address] Manda York MCV (RBC) [Entitic vol] 91.8 fL Normal 81.0-99.0 [facility] Comment on above: Performed By: #### U AMIC #### [facility] [address] [address] [address] Manda York MONO # 0.7 103/ul Normal 0.3-0.8 [facility] Comment on above: Performed By: #### U AMIC #### [facility] [address] [address] [address] Manda York Monocytes/100 WBC (Bld) 5.1 % Normal 1.7-12.0 [facility] Comment on above: Performed By: #### U AMIC #### [facility] [address] [address] [address] Manda York NEUT # 10.6 103/ul Critically high 1.4-6.5 [facility] Comment on above: Performed By: #### U AMIC #### [facility] [address] [address] [address] Manda York Neutrophils/100 WBC (Bld) 74.6 % Normal 43.0-75.0 [facility] Comment on above: Performed By: #### U AMIC #### [facility] [address] [place] [address] Dr. Manda York Platelet mean volume (Bld) [Entitic vol] 9.4 fL Critically low 9.5-13.5 [facility] Comment on above: Performed By: #### U AMIC #### [facility] [address] [place] [address] Dr. Manda York PLT 307 103/ul Normal 150-450 [facility] Comment on above: Performed By: #### U AMIC #### [facility] [address] [address] [address] Manda York RBC 4.73 106/ul Normal 4.20-5.40 [facility] Comment on above: Performed By: #### U AMIC #### [facility] [address] [address] [address] Manda York WBC 14.2 103/ul Critically high 4.0-11.0 [facility] Comment on above: Performed By: #### U AMIC #### [facility] [address] [place] [address] Dr. Manda York FREE T4on 09-24-2022 Free T4 [Mass/Vol] 1.31 ng/dL Normal 0.76-1.46 [facility] Comment on above: Performed By: #### F T4 #### [facility] [address] [place] [address] Dr. Manda York GLYCOHEMOGLOBIN A1Con 2022 ADA RECOMMENDATION SEE BELOW Normal [facility] Comment on above: Result Comment: ADA RECOMMENDED LIMIT 4.0 - 6.0 ADA THERAPEUTIC TARGET < 7.0 ACTION SUGGESTED > 7.0 Performed By: #### A 1C #### [facility] [address] [place] [address] Dr. Manda York Glucose [Mass/Vol] 120 mg/dL Normal [facility] Comment on above: Performed By: #### A 1C #### [facility] [address] [place] [address] Dr. Manda York HbA1c (Bld) [Mass fraction] 5.8 % Normal 4.5-6.2 [facility] Comment on above: Performed By: #### A 1C #### [facility] [address] [place] [address] Dr. Manda York PREG QUANT HCGon 09-24-2022 HCG QUANT <1 Normal [facility] Comment on above: Performed By: #### F T4 #### [facility] [address] [place] [address] Dr. Manda York HCG RANGE SEE BELOW Normal [facility] Comment on above: Result Comment: 5-50 0.2-1 WEEK 50-500 1-2 WEEKS 100-5,000 2-3 WEEKS 500-10,000 3-4 WEEKS 1,000-50,000 4-5 WEEKS 10,000-100,000 5-6 WEEKS 15,000-200,000 6-8 WEEKS 10,000-100,000 2-3 MONTHS Performed By: #### F T4 #### [facility] [address] [place] [address] Dr. Manda York PROTIMEon 09-24-2022 INR Coag (PPP) [Relative time] {INR} Normal [facility] Comment on above: Performed By: #### F T4 #### [facility] [address] [place] [address] Dr. Manda York INR GUIDELINES SEE BELOW Normal [facility] Comment on above: Result Comment: SHERRY RED INR: 2.0 - 3.0 CONDITIONS NOT LISTED BELOW 2.5 - 3.5 FOR PROSTHETIC HEART VALVE REPLACEMENT 2.5 - 3.5 RECURRENT THROMBOSIS Performed By: #### F T4 #### [facility] [address] [address] [address] Manda York PT Coag (PPP) [Time] 9.6 s Normal 9.0-11.6 [facility] Comment on above: Performed By: #### F T4 #### [facility] [address] [address] [address] Manda York PTTon 09-24-2022 aPTT Coag (Bld) [Time] 28.2 s Normal 22.3-36.2 [facility] Comment on above: Performed By: #### F T4 #### [facility] [address] [place] [address] Dr. Manda York TSHon 09-24-2022 TSH 0.300 uIU/mL Critically low 0.358-3.740 [facility] Comment on above: Performed By: #### F T4 #### [facility] [address] [place] [address] Dr. Manda York US PELVIS TRANSVAGon 023 [...] by: AURORA SHAIKH Date: 2022-09-24 17:50 Normal [facility] PAP ACOG PANEL 2: 30 to 65on 09-18-2022 . . Normal [facility] Comment on above: Result Comment: Perf ormed at: WB Performed By: #### F T4 #### [facility] [address] [address] [address] Manda York Age Gdln ACOG Testing 30-65 Normal [facility] Comment on above: Performed By: #### F T4 #### [facility] [address] [address] [address] Manda York DIAGNOSIS: Comment Normal [facility] Comment on above: Result Comment: NEGA TIVE FOR INTRAEPITHELIAL LESION OR MALIGNANCY. Performed at: WB Performed By: #### F T4 #### [facility] [address] [address] [address] Manda York HPV Aptima Negative Normal Negative [facility] Comment on above: Result Comment: This nucleic acid amplification test detects fourteen high-risk HPV types (16,18,31,33,35,39,45,51,52,56,58,59,66,68) without differentiation. Performed at: =G Performed By: #### F T4 #### [facility] [address] [address] [address] Manda York HPV Genotype Reflex Comment Normal [facility] Comment on above: Result Comment: Crit eria not met, HPV Genotype not performed. Performed at: WB Performed By: #### F T4 #### [facility] [address] [id number] [address] Manda York Methodology: Comment Normal [facility] Comment on above: Result Comment: This liquid based ThinPrep(R) pap test was screened with the use of an image guided system. Performed at: WB Performed By: #### F T4 #### [facility] [address] [place] [address] Dr. Manda York Note: Comment Normal [facility] Comment on above: Result Comment: [...] #### F T4 #### [facility] [address] [place], [place] [address] Dr. Manda York Performed by: Comment Normal [facility] Comment on above: Result Comment: Lorena Peters, Burlapper (ASCP) Performed at: WB Performed By: #### F T4 #### [facility] [address] [place], [place] [address] Dr. Manda York Specimen adequacy: Comment Normal [facility] Comment on above: Result Comment: Sati sfactory for evaluation. Endocervical and/or squamous metaplastic cells (endocervical component) are present. Performed at: WB Performed By: #### F T4 #### [facility] [address] [place], [place] [address] Dr. Manda York MG MAMM SCREEN 3D MARK CADon 09-01-2022 MG MAMM SCREEN 3D MARK CAD Patient: JONES HALEY Exam Date: 09/01/2022 : 1980 Gender:F Ordering : DR MADELAINE FERRIS . Admission #: [id number] Family : Order #: [id number] CLICK HERE TO VIEW EXAM RADIOLOGY REPORT [...] age 56. LOCATION: [facility] BREAST COMPOSITION: Scattered areas fibroglandular density. FINDINGS: [...] Yusuf M.D. on 09/02/2022 at 12:32 Normal [facility] MRI KNEE RT WO CONon 09-2 022 MRI KNEE RT WO CON HISTORY: [...] MADELAINE GOMEZ Date: 2022-04-01 08:24 Normal [facility] PNEUMOCOCCAL IGG ABS, 23 SER OTYPESon 03-21-2022 Pneumococcal Interpretation See Note [facility] S. pneumoniae 1 IgG (S) [Mass/Vol] 0.27 ug/mL [facility] S. pneumoniae 12 IgG (S) [Mass/Vol] 0.08 ug/mL [facility] S. pneumoniae 14 IgG (S) [Mass/Vol] 0.19 ug/mL [facility] S. pneumoniae 17 IgG (S) [Mass/Vol] 1.72 ug/mL [facility] S. pneumoniae 19 IgG (S) [Mass/Vol] 1.52 ug/mL [facility] S. pneumoniae 2 IgG (S) [Mass/Vol] 0.44 ug/mL [facility] S. pneumoniae 20 IgG (S) [Mass/Vol] 1.53 ug/mL [facility] S. pneumoniae 22 IgG (S) [Mass/Vol] 0.99 ug/mL [facility] S. pneumoniae 23 IgG (S) [Mass/Vol] 0.14 ug/mL [facility] S. pneumoniae 3 IgG (S) [Mass/Vol] 0.36 ug/mL [facility] S. pneumoniae 34 IgG (S) [Mass/Vol] 5.77 ug/mL [facility] S. pneumoniae 4 IgG (S) [Mass/Vol] 0.06 ug/mL [facility] S. pneumoniae 43 IgG (S) [Mass/Vol] 0.93 ug/mL [facility] S. pneumoniae 5 IgG (S) [Mass/Vol] 0.89 ug/mL [facility] S. pneumoniae 8 IgG (S) [Mass/Vol] 0.58 ug/mL [facility] S. pneumoniae 9 IgG (S) [Mass/Vol] 0.4 ug/mL [facility] S. pneumoniae [place] type 15B IgG (S) [Mass/Vol] 8.27 ug/mL [facility] S. pneumoniae [place] type 18C IgG (S) [Mass/Vol] 0.39 ug/mL [facility] S. pneumoniae [place] type 19A IgG (S) [Mass/Vol] 17.72 ug/mL [facility] S. pneumoniae [place] type 33F IgG (S) [Mass/Vol] 3.04 ug/mL [facility] S. pneumoniae [place] Citizen type 6B IgG (S) [Mass/Vol] 0.82 ug/mL [facility] S. pneumoniae [place] Citizen type 7F IgG (S) [Mass/Vol] 0.34 ug/mL [facility] S. pneumoniae [place] Citizen type 9V IgG (S) [Mass/Vol] 0.78 ug/mL [facility] XR KNEE RT 4V or >on [...] by: KRISTINA GARRETT Date: 2022-03-21 16:47 Normal [facility] DIPHTHER/TETANUS ABon 2021 C. diphtheriae IgG Qn (S) 0.1 IU/mL [facility] C. tetani toxoid IgG IA Qn 1 IU/mL [facility] IGA BLDon 03-18-2022 IgA [Mass/Vol] 182 mg/dL 70 - 400 mg/dL [facility] IGE BLDon 03-18-2022 IgE Qn 12.3 kU/l <114.0 kU/l [facility] IGGon 03-18-2022 IgG [Mass/Vol] 618 mg/dL Low 700 - 1,600 mg/dL [facility] IGMon 03-18-2022 IgM [Mass/Vol] 514 mg/dL High 40 - 230 mg/dL [facility] Immunodeficiency panel FC (B ld)on 03-18-2022 CD3 cells (Bld) [#/Vol] 2841 cells/uL High 958 - 2,388 cells/uL [facility] CD3 cells/100 cells (Bld) 81 % 60 - 89 % [facility] CD3+CD4+ (T4 helper) cells (Bld) [#/Vol] 1621 cells/uL 533 - 1,674 cells/uL [facility] CD3+CD4+ (T4 helper) cells/100 cells (Bld) 46 % 34 - 61 % [facility] CD3+CD4+ (T4 helper) cells/CD3+CD8+ (T8 suppressor cells) cells (Bld) [# ratio] 1.55 % 1.10 - 3.25 [facility] CD3+CD8+ (T8 suppressor cells) cells (Bld) [#/Vol] 1049 cells/uL High 175 - 958 cells/uL [facility] CD3+CD8+ (T8 suppressor cells) cells/100 cells (Bld) 30 % 10 - 41 % [facility] CD3-CD16+CD56+ (Natural killer) cells (Bld) [#/Vol] 193 cells/uL 102 - 565 cells/uL [facility] CD3-CD16+CD56+ (Natural killer) cells/100 cells (Bld) 5 % 5 - 25 % [facility] CD3-CD19+ cells (Bld) [#/Vol] 475 cells/uL 75 - 660 cells/uL [facility] CD3-CD19+ cells/100 cells (Bld) 13 % 5 - 22 % [facility] CBC W Auto Differential pane l (Bld)on 03-17-2022 Basophils (Bld) [#/Vol] 0.07 10*3/uL <0.11 k/uL [facility] Basophils/100 WBC (Bld) 0.6 % [facility] Differential cell count method Nom (Bld) Auto [facility] Eosinophils (Bld) [#/Vol] 0.18 10*3/uL <0.46 k/uL [facility] Eosinophils/100 WBC (Bld) 1.6 % [facility] Erythrocyte distribution width (RBC) [Ratio] 14.6 % 11.5 - 15.0 % [facility] Hematocrit (Bld) [Volume fraction] 40.5 % 36.0 - 46.0 % [facility] Hemoglobin (Bld) [Mass/Vol] 13.0 g/dL 11.5 - 15.5 g/dL [facility] Immature granulocytes (Bld) [#/Vol] 0.06 10*3/uL <0.10 k/uL [facility] Immature granulocytes/100 WBC (Bld) 0.5 % [facility] Lymphocytes (Bld) [#/Vol] 2.97 10*3/uL 1.00 - 4.00 k/uL [facility] Lymphocytes/100 WBC (Bld) 26.9 % [facility] MCH (RBC) [Entitic mass] 28.4 pg 26.0 - 34.0 pg [facility] MCHC (RBC) [Mass/Vol] 32.1 g/dL 30.5 - 36.0 g/dL [facility] MCV (RBC) [Entitic vol] 88.4 fL 80.0 - 100.0 fL [facility] Monocytes (Bld) [#/Vol] 0.79 10*3/uL <0.87 k/uL [facility] Monocytes/100 WBC (Bld) 7.2 % [facility] Neutrophils (Bld) [#/Vol] 6.97 10*3/uL 1.45 - 7.50 k/uL [facility] Neutrophils/100 WBC (Bld) 63.2 % [facility] Nucleated RBC (Bld) [#/Vol] <0.01 k/uL [facility] Nucleated RBC/100 WBC (Bld) [Ratio] 0.0 /100 WBC [facility] Platelet mean volume (Bld) [Entitic vol] 9.9 fL 9.0 - 12.7 fL [facility] Platelets (Bld) [#/Vol] 314 10*3/uL 150 - 400 k/uL [facility] RBC (Bld) [#/Vol] 4.58 10*6/uL 3.90 - 5.2 0 m/uL [facility] WBC (Bld) [#/Vol] 11.04 10*3/uL High 3.70 - 11 .00 k/uL [facility] ECHOCARDIO M/2D COMPLETEon 1 ECHOCARDIO M/2D COMPLETE Patient: JONES HALEY Exam Date: 03/12/2022 : 1980 Gender:F Ordering : DR MADELAINE FERRIS . Admission #: [id number] Family : Order #: [id number] CLICK HERE TO VIEW EXAM ECHOCARDIOGRAM REPORT [...] at 16:47 Normal [facility] INSULINon 03-11-2022 Insulin 17.8 uIU/mL Normal 2.6-24.9 [facility] Comment on above: Performed By: #### C BC #### [facility] [address] [place] [address] Dr. Manda York CBC AUTO DIFFon 03-09-2022 BASO # 0.1 103/ul Normal 0.0-0.1 [facility] Comment on above: Performed By: #### C BC #### [facility] [address] [place] [address] Dr. Manda York Basophils/100 WBC (Bld) 0.4 % Normal 0.2-2.0 [facility] Comment on above: Performed By: #### C BC #### [facility] [address] [place] [address] Dr. Manda York EO # 0.2 103/ul Normal 0.0-0.7 [facility] Comment on above: Performed By: #### C BC #### [facility] [address] [place] [address] Dr. Manda York Eosinophils/100 WBC (Bld) 1.2 % Normal 0.9-7.0 [facility] Comment on above: Performed By: #### C BC #### [facility] [address] [place] [address] Dr. Manda York Erythrocyte distribution width (RBC) [Ratio] 14.6 % Normal 11.0-15.0 [facility] Comment on above: Performed By: #### C BC #### [facility] [address] [place] [address] Dr. Manda York Hematocrit (Bld) [Volume fraction] 39.2 % Normal 36.0-48.0 [facility] Comment on above: Performed By: #### C BC #### [facility] [address] [place] [address] Dr. Manda York Hemoglobin (Bld) [Mass/Vol] 12.7 g/dL Normal 12.0-16.0 [facility] Comment on above: Performed By: #### C BC #### [facility] [address] [place] [address] Dr. Manda York IG # 0.06 10e3/ul Critically high 0.00-0.03 [facility] [place] [facility] Comment on above: Performed By: #### C BC #### [facility] [address] [place] [address] Dr. Manda York IG % 0.5 % Normal 0.0-0.5 [facility] Comment on above: Performed By: #### C BC #### [facility] [address] [place] [address] Dr. Manda York LYMPH # 3.7 103/ul Normal 1.2-3.8 [facility] Comment on above: Performed By: #### C BC #### [facility] [address] [place] [address] Dr. Manda York Lymphocytes/100 WBC (Bld) 31.0 % Normal 20.5-60.0 [facility] Comment on above: Performed By: #### C BC #### [facility] [address] [place] [address] Dr. Manda York MANUAL DIFF REQ NO Normal [facility] Comment on above: Performed By: #### C BC #### [facility] [address] [place] [address] Dr. Manda York MCH (RBC) [Entitic mass] 28.9 pg Normal 26.7-34.0 [facility] Comment on above: Performed By: #### C BC #### [facility] [address] [place] [address] Dr. Manda York MCHC (RBC) [Mass/Vol] 32.4 g/dL Normal 29.9-35.2 [facility] Comment on above: Performed By: #### C BC #### [facility] [address] [place] [address] Dr. Manda York MCV (RBC) [Entitic vol] 89.1 fL Normal 81.0-99.0 [facility] Comment on above: Performed By: #### C BC #### [facility] [address] [place] [address] Dr. Manda York MONO # 0.7 103/ul Normal 0.3-0.8 [facility] Comment on above: Performed By: #### C BC #### [facility] [address] [place] [address] Dr. Manda York Monocytes/100 WBC (Bld) 5.8 % Normal 1.7-12.0 [facility] Comment on above: Performed By: #### C BC #### [facility] [address] [place] [address] Dr. Manda York NEUT # 7.3 103/ul Critically high 1.4-6.5 [facility] Comment on above: Performed By: #### C BC #### [facility] [address] [place] [address] Dr. Manda York Neutrophils/100 WBC (Bld) 61.1 % Normal 43.0-75.0 [facility] Comment on above: Performed By: #### C BC #### [facility] [address] [address] [address] Manda York Platelet mean volume (Bld) [Entitic vol] 9.7 fL Normal 9.5-13.5 [facility] Comment on above: Performed By: #### C BC #### [facility] [address] [address] [address] Manda York PLT 297 103/ul Normal 150-450 [facility] Comment on above: Performed By: #### C BC #### [facility] [address] [address] [address] Manda York RBC 4.40 106/ul Normal 4.20-5.40 [facility] Comment on above: Performed By: #### C BC #### [facility] [address] [address] [address] Manda York WBC 12.0 103/ul Critically high 4.0-11.0 [facility] Comment on above: Performed By: #### C BC #### [facility] [address] [address] [address] Manda York FREE THYROXINE INDEX T7on FTI 3.81 Normal 1.30-4.50 [facility] Comment on above: Performed By: #### U AMIC #### [facility] [address] [place] [address] Dr. Manda York T3U 34.0 % Normal 30.0-39.0 [facility] Comment on above: Performed By: #### U AMIC #### [facility] [address] [address] [address] Manda York T4 [Mass/Vol] 11.20 ug/dL Normal 4.80-13.90 [facility] Comment on above: Performed By: #### U AMIC #### [facility] [address] [place] [address] Dr. Manda York GLYCOHEMOGLOBIN A1Con 2021 ADA RECOMMENDATION SEE BELOW Normal [facility] Comment on above: Result Comment: ADA RECOMMENDED LIMIT 4.0 - 6.0 ADA THERAPEUTIC TARGET < 7.0 ACTION SUGGESTED > 7.0 Performed By: #### S LUIGI MELO #### [facility] [address] [address] [address] Manda York Glucose [Mass/Vol] 117 mg/dL Normal [facility] Comment on above: Performed By: #### S LUIGI MELO #### [facility] [address] [address] [address] Manda York HbA1c (Bld) [Mass fraction] 5.7 % Normal 4.5-6.2 [facility] Comment on above: Performed By: #### S LUIGI MELO #### [facility] [address] [address] [address] Manda York IRONon 03-09-2022 Iron [Mass/Vol] 61.0 ug/dL Normal 50.0-170.0 [place] Comment on above: Performed By: #### C BC #### [facility] [address] [place] [address] Dr. Manda York LIPID PROFILEon 03-09-2022 CHOL-HDL RATIO NORM SEE BELOW Normal [facility] Comment on above: Result Comment: 3.3 - 4.4 LOW RISK 4.4 - 7.1 AVERAGE RISK 7.1 - 11.0 MODERATE RISK >11.0 HIGH RISK Performed By: #### U AMIC #### [facility] [address] [place] [address] Dr. Manda York Cholesterol [Mass/Vol] 260 mg/dL Critically high <=200 [facility] Comment on above: Performed By: #### U AMIC #### [facility] [address] [place] [address] Dr. Manda York Cholesterol in HDL [Mass/Vol] 38 mg/dL Critically low 40-60 [facility] Comment on above: Performed By: #### U AMIC #### [facility] [address] [place] [address] Dr. Manda York Cholesterol in LDL [Mass/Vol] 170.8 mg/dL Normal [facility] Comment on above: Performed By: #### U AMIC #### [facility] [address] [address] [address] Manda York Cholesterol.total/Chol esterol in HDL [Mass ratio] 6.8 {ratio} Normal [facility] Comment on above: Performed By: #### U AMIC #### [facility] [address] [address] [address] Manda York HDL NORMAL > or = 60 mg/dl - LO W CARDIOVASCULAR RISK <40 mg/dl - HIGH CARDIOVASCULAR RISK Normal [facility] Comment on above: Performed By: #### U AMIC #### [facility] [address] [address] [address] Manda York LDL CALC NORMAL SEE BELOW Normal [place] Comment on above: Result Comment: <100 mg/dl OPTIMAL 100 - 129 mg/dl NEAR OR ABOVE OPTIMAL 130 - 159 mg/dl BORDERLINE HIGH 160 - 189 mg/dl HIGH >190 mg/dl VERY HIGH Performed By: #### U AMIC #### [facility] [address] [address] [address] Manda York Triglyceride [Mass/Vol] 256 mg/dL Critically high <=150 [facility] Comment on above: Performed By: #### U AMIC #### [facility] [address] [address] [address] Manda York VLDL CALC 51.2 mg/dL Normal [facility] Comment on above: Performed By: #### U AMIC #### [facility] [address] [address] [address] Manda York PROF 14(COMP METB)on 022 Albumin [Mass/Vol] 3.8 g/dL Normal 3.4-5.0 [facility] Comment on above: Performed By: #### U AMIC #### [facility] [address] [id number] [address] Manda York Albumin/Globulin [Mass ratio] 1.0 {ratio} Normal [facility] Comment on above: Performed By: #### U AMIC #### [facility] [address] [address] [address] Manda York ALP [Catalytic activity/Vol] 66 U/L Normal 46-116 [facility] Comment on above: Performed By: #### U AMIC #### [facility] [address] [address] [address] Manda York ALT [Catalytic activity/Vol] 27 U/L Normal 14-59 [facility] Comment on above: Performed By: #### U AMIC #### [facility] [address] [address] [address] Manda York Anion gap [Moles/Vol] 11.8 mmol/L Normal [facility] Comment on above: Performed By: #### U AMIC #### [facility] [address] [address] [address] Manda York AST [Catalytic activity/Vol] 9 U/L Critically low 15-37 [facility] Comment on above: Performed By: #### U AMIC #### [facility] [address] [address] [address] Manda York Bilirubin [Mass/Vol] 0.2 mg/dL Normal 0.2-1.0 [facility] Comment on above: Performed By: #### U AMIC #### [facility] [address] [address] [address] Manda York Calcium [Mass/Vol] 9.1 mg/dL Normal 8.5-10.1 [facility] Comment on above: Performed By: #### U AMIC #### [facility] [address] [address] [address] Manda York Chloride [Moles/Vol] 101 mmol/L Normal 98-107 [facility] Comment on above: Performed By: #### U AMIC #### [facility] [address] [address] [address] Manda York CO2 [Moles/Vol] 26.1 mmol/L Normal 21.0-32.0 [facility] Comment on above: Performed By: #### U AMIC #### [facility] [address] [address] [address] Manda York Creatinine [Mass/Vol] 0.80 mg/dL Normal 0.55-1.02 [facility] Comment on above: Performed By: #### U AMIC #### [facility] [address] [address] [address] Manda York EGFR-AF CHADIAN >60 Normal >=60 [facility] Comment on above: Performed By: #### U AMIC #### [facility] [address] [address] [address] Manda York EGFR-NON AF CHADIAN >60 Normal >=60 [facility] Comment on above: Performed By: #### U AMIC #### [facility] [address] [address] [address] Manda York Globulin (S) [Mass/Vol] 3.8 g/dL Normal [facility] Comment on above: Performed By: #### U AMIC #### [facility] [address] [address] [address] Manda York Glucose [Mass/Vol] 93 mg/dL Normal 74-106 [facility] Comment on above: Performed By: #### U AMIC #### [facility] [address] [address] [address] Manda York Potassium [Moles/Vol] 3.9 mmol/L Normal 3.5-5.1 [facility] Comment on above: Performed By: #### U AMIC #### [facility] [address] [address] [address] Manda York Protein [Mass/Vol] 7.6 g/dL Normal 6.4-8.2 [facility] Comment on above: Performed By: #### U AMIC #### [facility] [address] [address] [address] Manda York Sodium [Moles/Vol] 135 mmol/L Critically low 136-145 [facility] Comment on above: Performed By: #### U AMIC #### [facility] [address] [address] [address] Manda York Urea nitrogen [Mass/Vol] 10.0 mg/dL Normal 7.0-18.0 [facility] Comment on above: Performed By: #### U AMIC #### [facility] [address] [address] [address] Manda York Urea nitrogen/Creatinine [Mass ratio] 12.5 mg/mg Normal [facility] Comment on above: Performed By: #### U AMIC #### [facility] [address] [address] [address] Manda York TSHon 03-09-2022 TSH 0.610 uIU/mL Normal 0.358-3.740 [facility] Comment on above: Performed By: #### U AMIC #### [facility] [address] [address] [address] Manda York B2 MICROGLOBULIN Bon 022 Upzc-4-Ghmpbwycuhhhj [Mass/Vol] 1.8 ug/mL 0.8 - 2.4 mg/L [facility] FERRITIN BLDon 03-05-2022 Ferritin [Mass/Vol] 33.2 ng/mL 14.7 - 2 05.1 ng/mL [facility] FOLATE SERUMon 03-05-2022 Folate [Mass/Vol] 6.6 ng/mL >4.7 ng/mL [facility] Iron and Iron binding capaci ty panelon 03-05-2022 Iron [Mass/Vol] 49 ug/dL 41 - 186 ug/dL [facility] Iron binding capacity [Mass/Vol] 392 ug/dL High 232 - 386 ug/dL [facility] Iron/TIBC [Molar ratio] 12.5 % Low 15.0 - 57.0 % [facility] CBC W Auto Differential pane l (Bld)on 03-04-2022 Basophils (Bld) [#/Vol] 0.07 10*3/uL <0.11 k/uL [facility] Basophils/100 WBC (Bld) 0.6 % [facility] Differential cell count method Nom (Bld) Auto [facility] Eosinophils (Bld) [#/Vol] 0.19 10*3/uL <0.46 k/uL [facility] Eosinophils/100 WBC (Bld) 1.7 % [facility] Erythrocyte distribution width (RBC) [Ratio] 14.7 % 11.5 - 15.0 % [facility] Hematocrit (Bld) [Volume fraction] 40.0 % 36.0 - 46.0 % [facility] Hemoglobin (Bld) [Mass/Vol] 13.0 g/dL 11.5 - 15.5 g/dL [facility] Immature granulocytes (Bld) [#/Vol] 0.07 10*3/uL <0.10 k/uL [facility] Immature granulocytes/100 WBC (Bld) 0.6 % [facility] Lymphocytes (Bld) [#/Vol] 3.31 10*3/uL 1.00 - 4.00 k/uL [facility] Lymphocytes/100 WBC (Bld) 30.2 % [facility] MCH (RBC) [Entitic mass] 28.9 pg 26.0 - 34.0 pg [facility] MCHC (RBC) [Mass/Vol] 32.5 g/dL 30.5 - 36.0 g/dL [facility] MCV (RBC) [Entitic vol] 88.9 fL 80.0 - 100.0 fL [facility] Monocytes (Bld) [#/Vol] 0.70 10*3/uL <0.87 k/uL [facility] Monocytes/100 WBC (Bld) 6.4 % [facility] Neutrophils (Bld) [#/Vol] 6.63 10*3/uL 1.45 - 7.50 k/uL [facility] Neutrophils/100 WBC (Bld) 60.5 % [facility] Nucleated RBC (Bld) [#/Vol] <0.01 k/uL [facility] Nucleated RBC/100 WBC (Bld) [Ratio] 0.0 /100 WBC [facility] Platelet mean volume (Bld) [Entitic vol] 9.6 fL 9.0 - 12.7 fL [facility] Platelets (Bld) [#/Vol] 355 10*3/uL 150 - 400 k/uL [facility] RBC (Bld) [#/Vol] 4.50 10*6/uL 3.90 - 5.2 0 m/uL [facility] WBC (Bld) [#/Vol] 10.97 10*3/uL 3.70 - 11 .00 k/uL [facility] Calcium.ionized [Moles/Vol]o n 03-04-2022 Calcium.ionized (Bld) [Mass/Vol] 1.26 mmol/L 1.08 - 1.30 mmol/L [facility] Calcium.ionized adjusted to pH 7.4 (Bld) [Moles/Vol] 1.25 mmol/L 1.08 - 1.30 mmol/L [facility] Comprehensive metabolic 2000 panelon 03-04-2022 Albumin [Mass/Vol] 4.3 g/dL 3.9 - 4.9 g/dL [facility] ALP [Catalytic activity/Vol] 70 U/L 34 - 123 U/L [facility] ALT [Catalytic activity/Vol] 26 U/L 7 - 38 U/L [facility] Anion gap [Moles/Vol] 7 mmol/L Low 9 - 18 mmol/L [facility] AST [Catalytic activity/Vol] 12 U/L Low 13 - 35 U/L [facility] Bilirubin [Mass/Vol] 0.2 mg/dL 0.2 - 1 .3 mg/dL [facility] Calcium [Mass/Vol] 9.3 mg/dL 8.5 - 10. 2 mg/dL [facility] Chloride [Moles/Vol] 103 mmol/L 97 - 10 5 mmol/L [facility] CO2 [Moles/Vol] 28 mmol/L 22 - 30 mmol/L [facility] Creatinine [Mass/Vol] 0.69 mg/dL 0.58 - 0.96 mg/dL [facility] Estimated Glomerular Filtration Rate 112 mL/min/1.73m >=60 mL/min/1.73m [facility] Glucose [Mass/Vol] 100 mg/dL High 74 - 99 mg/dL [facility] Potassium [Moles/Vol] 3.9 mmol/L 3.7 - 5.1 mmol/L [facility] Protein [Mass/Vol] 7.0 g/dL 6.3 - 8.0 g/dL [facility] Sodium [Moles/Vol] 138 mmol/L 136 - 144 mmol/L [facility] Urea nitrogen [Mass/Vol] 12 mg/dL 7 - 21 mg/dL [facility] LD LACTATE DEHYDROon 022 LDH [Catalytic activity/Vol] 135 U/L 135 - 214 U/L [facility] PHOSPHORUS INORGANICon 03-04 Phosphate [Mass/Vol] 3.2 mg/dL 2.7 - 4 .8 mg/dL [facility] URIC ACID BLOODon 03-04-2022 Urate [Mass/Vol] 5.2 mg/dL 2.5 - 6.6 mg/dL [facility] IMMUNOGLOBULINS IGA/IGM/IGG/ IGE QUANTITAon 02-20-2022 Immunoglobulin A, Qn, Serum 189 mg/dL Normal 87-352 [facility] Comment on above: Result Comment: Perf ormed at: CB Performed By: #### S LEANN MELOC #### [facility] [address] [address] [address] Manda York Immunoglobulin E, Total 10 IU/mL Normal 6-495 [facility] Comment on above: Result Comment: Perf ormed at: BN Performed By: #### S LEANN MELOC #### [facility] [address] [address] [address] Manda York Immunoglobulin G, Qn, Serum 598 mg/dL Normal 586-1602 [facility] Comment on above: Result Comment: Perf ormed at: CB Performed By: #### LEANN PATRICKC #### [facility] [address] [address] [address] Manda York Immunoglobulin M, Qn, Serum 493 mg/dL Critically high 26-217 [facility] Comment on above: Result Comment: Perf ormed at: CB Performed By: #### S LEANN MELOC #### [facility] [address] [address] [address] Manda York CHRISTIAN by IFAon 02-19-2022 Antinuclear Antibodies, IFA Negative Normal [facility] Comment on above: Result Comment: Nega tive <1:80 Borderline 1:80 Positive >1:80 ICAP nomenclature: AC-0 For more information about Hep-2 cell patterns use ANApatterns.org, the official website for the International Consensus on Antinuclear Antibody (CHRISTIAN) Patterns (ICAP). Performed By: #### S LEANN MELOC #### [facility] [address] [place] [address] Dr. Manda York THYROID ANTIBODIESon 022 Thyroglobulin Antibody <1.0 Normal 0.0-0.9 [facility] Comment on above: Result Comment: Thyr oglobulin Antibody measured by [employer] Performed By: #### F T4 #### [facility] [address] [place] [address] Dr. Manda York Thyroid Peroxidase (TPO) Ab <8 Normal 0-34 [facility] Comment on above: Performed By: #### F T4 #### [facility] [address] [place] [address] Dr. Manda York PROTEIN ELECTROPHERESISon Albumin [Mass/Vol] 3.2 g/dL Normal 2.9-4.4 [facility] Comment on above: Performed By: #### F T4 #### [facility] [address] [place] [address] Dr. Manda York Albumin/Globulin [Mass ratio] 1.0 {ratio} Normal 0.7-1.7 [facility] Comment on above: Performed By: #### F T4 #### [facility] [address] [place] [address] Dr. Manda York Rzrgq-3-Pkjymcjo 0.2 g/dL Normal 0.0-0.4 [facility] Comment on above: Performed By: #### F T4 #### [facility] [address] [place] [address] Dr. Manda York Fpjwl-6-Bgrtjzng 0.9 g/dL Normal 0.4-1.0 [facility] Comment on above: Performed By: #### F T4 #### [facility] [address] [place] [address] Dr. Manda York Beta Globulin 1.2 g/dL Normal 0.7-1.3 [facility] Comment on above: Performed By: #### F T4 #### [facility] [address] [place] [address] Dr. Manda York Gamma Globulin 0.9 g/dL Normal 0.4-1.8 [facility] Comment on above: Performed By: #### F T4 #### [facility] [address] [place] [address] Dr. Manda York Globulin (S) [Mass/Vol] 3.2 g/dL Normal 2.2-3.9 [facility] Comment on above: Performed By: #### F T4 #### [facility] [address] [place] [address] Dr. Manda York M-Jose De Jesus Not Observed Normal Not Observed [facility] Comment on above: Performed By: #### F T4 #### [facility] [address] [place] [address] Dr. Manda York PDF . Normal [facility] Comment on above: Performed By: #### F T4 #### [facility] [address] [place] [address] Dr. Manda York Please note: Comment Normal [facility] Comment on above: Result Comment: Prot ein electrophoresis scan will follow via computer, mail, or co founder and ceo delivery. Performed By: #### F T4 #### [facility] [address] [place] [address] Dr. Manda York Protein [Mass/Vol] 6.4 g/dL Normal 6.0-8.5 [facility] Comment on above: Performed By: #### F T4 #### [facility] [address] [place] [address] Dr. Manda York SLE PROFILE Aon 02-16-2022 Anti-DNA (DS) Ab Qn 9 IU/mL Normal 0-9 [facility] Comment on above: Result Comment: Nega tive <5 Equivocal 5 - 9 Positive >9 Performed By: #### S LUIGI MELO #### [facility] [address] [place] [address] Dr. Manda York Antichromatin Antibodies <0.2 Normal 0.0-0.9 [facility] Comment on above: Performed By: #### S LUIGI MELO #### [facility] [address] [place] [address] Dr. Manda York RA Latex Turbid. <10.0 Normal <14.0 [facility] Comment on above: Performed By: #### S LEANN MELOC #### [facility] [address] [place] [address] Dr. Manda York ADJUSTER ELECTRICAL CONTACTS Antibodies <0.2 Normal 0.0-0.9 [facility] Comment on above: Performed By: #### S LUIGI MELO #### [facility] [address] [place] [address] Dr. Manda York Sjogren'tye Anti-SS-A <0.2 Normal 0.0-0.9 [facility] Comment on above: Performed By: #### S LEANN MELOC #### [facility] [address] [place] [address] Dr. Manda York Sjogren's Anti-SS-B <0.2 Normal 0.0-0.9 [facility] Comment on above: Performed By: #### S LEANN MELOC #### [facility] [address] [place] [address] Dr. Manda York Schneider Antibodies <0.2 Normal 0.0-0.9 [facility] Comment on above: Performed By: #### LEANN PATRICKC #### [facility] [address] [place] [address] Dr. Manda York ANTISTREPTOLYSIN O AB (ASO)o n 02-15-2022 Antistreptolysin O Ab 49.6 IU/mL Normal 0.0-200.0 [facility] Comment on above: Performed By: #### A SOAB #### [facility] [address] [place] [address] Dr. Manda York MICROALBUMIN URINEon 022 Albumin, Urine <3.0 Normal Not Estab. [facility] Comment on above: Result Comment: Ve rified by repeat analysis Performed By: #### C BC #### [facility] [address] [place] [address] Dr. Manda York T4, T3U, FTI LABCORPon 02-15 Free Thyroxine Index 2.6 Normal 1.2-4.9 [facility] Comment on above: Performed By: #### S LEANN MELOC #### [facility] [address] [place] [address] Dr. Manda York T3 Uptake 26 % Normal 24-39 [facility] Comment on above: Performed By: #### S LUIGI MELO #### [facility] [address] [address] [address] Manda York T4 [Mass/Vol] 9.9 ug/dL Normal 4.5-12.0 [facility] Comment on above: Performed By: #### LEANN PATRICK #### [facility] [address] [address] [address] Manda York CBC AUTO DIFFon 02-14-2022 BASO # 0.1 103/ul Normal 0.0-0.1 [facility] Comment on above: Performed By: #### U AMIC #### [facility] [address] [address] [address] Manda York Basophils/100 WBC (Bld) 0.6 % Normal 0.2-2.0 [facility] Comment on above: Performed By: #### U AMIC #### [facility] [address] [address] [address] Manda York EO # 0.3 103/ul Normal 0.0-0.7 [facility] Comment on above: Performed By: #### U AMIC #### [facility] [address] [address] [address] Manda York Eosinophils/100 WBC (Bld) 3.4 % Normal 0.9-7.0 [facility] Comment on above: Performed By: #### U AMIC #### [facility] [address] [address] [address] Manda York Erythrocyte distribution width (RBC) [Ratio] 14.6 % Normal 11.0-15.0 [facility] Comment on above: Performed By: #### U AMIC #### [facility] [address] [address] [address] Manda York Hematocrit (Bld) [Volume fraction] 39.1 % Normal 36.0-48.0 [facility] Comment on above: Performed By: #### U AMIC #### [facility] [address] [address] [address] Manda York Hemoglobin (Bld) [Mass/Vol] 12.4 g/dL Normal 12.0-16.0 [facility] Comment on above: Performed By: #### U AMIC #### [facility] [address] [address] [address] Manda York IG # 0.03 10e3/ul Normal 0.00-0.03 [facility] Comment on above: Performed By: #### U AMIC #### [facility] [address] [address] [address] Manda York IG % 0.3 % Normal 0.0-0.5 [facility] Comment on above: Performed By: #### U AMIC #### [facility] [address] [address] [address] Manda York LYMPH # 3.6 103/ul Normal 1.2-3.8 [facility] Comment on above: Performed By: #### U AMIC #### [facility] [address] [place] [address] Dr. Manda York Lymphocytes/100 WBC (Bld) 39.9 % Normal 20.5-60.0 [facility] Comment on above: Performed By: #### U AMIC #### [facility] [address] [address] [address] Manda York MANUAL DIFF REQ NO Normal [place] Comment on above: Performed By: #### U AMIC #### [facility] [address] [address] [address] Manda York MCH (RBC) [Entitic mass] 28.4 pg Normal 26.7-34.0 [facility] Comment on above: Performed By: #### U AMIC #### [facility] [address] [address] [address] Manda York MCHC (RBC) [Mass/Vol] 31.7 g/dL Normal 29.9-35.2 [facility] Comment on above: Performed By: #### U AMIC #### [facility] [address] [place] [address] Dr. Manda York MCV (RBC) [Entitic vol] 89.7 fL Normal 81.0-99.0 [facility] Comment on above: Performed By: #### U AMIC #### [facility] [address] [address] [address] Manda York MONO # 0.7 103/ul Normal 0.3-0.8 [facility] Comment on above: Performed By: #### U AMIC #### [facility] [address] [address] [address] Manda York Monocytes/100 WBC (Bld) 7.3 % Normal 1.7-12.0 [facility] Comment on above: Performed By: #### U AMIC #### [facility] [address] [address] [address] Manda York NEUT # 4.4 103/ul Normal 1.4-6.5 [facility] Comment on above: Performed By: #### U AMIC #### [facility] [address] [address] [address] Manda York Neutrophils/100 WBC (Bld) 48.5 % Normal 43.0-75.0 [facility] Comment on above: Performed By: #### U AMIC #### [facility] [address] [address] [address] Manda York Platelet mean volume (Bld) [Entitic vol] 10.1 fL Normal 9.5-13.5 [facility] Comment on above: Performed By: #### U AMIC #### [facility] [address] [address] [address] Manda York PLT 310 103/ul Normal 150-450 [facility] Comment on above: Performed By: #### U AMIC #### [facility] [address] [address] [address] Manda York RBC 4.36 106/ul Normal 4.20-5.40 [facility] Comment on above: Performed By: #### U AMIC #### [facility] [address] [address] [address] Manda York WBC 9.0 103/ul Normal 4.0-11.0 [facility] Comment on above: Performed By: #### U AMIC #### [facility] [address] [place] [address] Dr. Manda York CRPon 02-14-2022 CRP [Mass/Vol] mg/L Normal <=1.0 [facility] Comment on above: Performed By: #### U AMIC #### [facility] [address] [place] [address] Dr. Manda York CULTURE URINEon 02-14-2022 CULTURE URINE Culture Observations : LIGHT GROWTH OF MIXED GENITAL AMBER. NO POTENTIAL PATHOGENS SEEN. Normal [facility] Comment on above: Performed By: #### C BC #### [facility] [address] [place] [address] Dr. Manda York PROF 14(COMP METB)on 022 Albumin [Mass/Vol] 3.5 g/dL Normal 3.4-5.0 [facility] Comment on above: Performed By: #### U AMIC #### [facility] [address] [place] [address] Dr. Manda York Albumin/Globulin [Mass ratio] 1.0 {ratio} Normal [facility] Comment on above: Performed By: #### U AMIC #### [facility] [address] [place] [address] Dr. Manda York ALP [Catalytic activity/Vol] 71 U/L Normal 46-116 [facility] Comment on above: Performed By: #### U AMIC #### [facility] [address] [place] [address] Dr. Manda York ALT [Catalytic activity/Vol] 46 U/L Normal 14-59 [facility] Comment on above: Performed By: #### U AMIC #### [facility] [address] [place] [address] Dr. Manda York Anion gap [Moles/Vol] 11.6 mmol/L Normal [facility] Comment on above: Performed By: #### U AMIC #### [facility] [address] [place] [address] Dr. Manda York AST [Catalytic activity/Vol] 15 U/L Normal 15-37 [facility] Comment on above: Performed By: #### U AMIC #### [facility] [address] [address] [address] Manda York Bilirubin [Mass/Vol] 0.2 mg/dL Normal 0.2-1.0 [facility] Comment on above: Performed By: #### U AMIC #### [facility] [address] [address] [address] Manda York Calcium [Mass/Vol] 8.7 mg/dL Normal 8.5-10.1 [facility] Comment on above: Performed By: #### U AMIC #### [facility] [address] [address] [address] Manda York Chloride [Moles/Vol] 104 mmol/L Normal 98-107 [facility] Comment on above: Performed By: #### U AMIC #### [facility] [address] [address] [address] Manda York CO2 [Moles/Vol] 25.1 mmol/L Normal 21.0-32.0 [facility] Comment on above: Performed By: #### U AMIC #### [facility] [address] [address] [address] Manda York Creatinine [Mass/Vol] 0.80 mg/dL Normal 0.55-1.02 [facility] Comment on above: Performed By: #### U AMIC #### [facility] [address] [address] [address] Manda York EGFR-AF CHADIAN >60 Normal >=60 [facility] Comment on above: Performed By: #### U AMIC #### [facility] [address] [address] [address] Manda York EGFR-NON AF CHADIAN >60 Normal >=60 [facility] Comment on above: Performed By: #### U AMIC #### [facility] [address] [address] [address] Manda York Globulin (S) [Mass/Vol] 3.6 g/dL Normal [facility] Comment on above: Performed By: #### U AMIC #### [facility] [address] [address] [address] Manda York Glucose [Mass/Vol] 92 mg/dL Normal 74-106 [facility] Comment on above: Performed By: #### U AMIC #### [facility] [address] [address] [address] Manda York Potassium [Moles/Vol] 3.7 mmol/L Normal 3.5-5.1 [facility] Comment on above: Performed By: #### U AMIC #### [facility] [address] [address] [address] Manda York Protein [Mass/Vol] 7.1 g/dL Normal 6.4-8.2 [facility] Comment on above: Performed By: #### U AMIC #### [facility] [address] [address] [address] Manda York Sodium [Moles/Vol] 137 mmol/L Normal 136-145 [facility] Comment on above: Performed By: #### U AMIC #### [facility] [address] [address] [address] Manda York Urea nitrogen [Mass/Vol] 17.0 mg/dL Normal 7.0-18.0 [facility] Comment on above: Performed By: #### U AMIC #### [facility] [address] [address] [address] Manda York Urea nitrogen/Creatinine [Mass ratio] 21.2 mg/mg Normal [facility] Comment on above: Performed By: #### U AMIC #### [facility] [address] [address] [address] Manda York SED RATE WESTERGRENon 2021 SED RATE 40 mm/hr Critically high <=20 [facility] Comment on above: Performed By: #### S EDR #### [facility] [address] [address] [address] Manda York TSHon 02-14-2022 TSH 1.155 uIU/mL Normal 0.358-3.740 [facility] Comment on above: Performed By: #### U AMIC #### [facility] [address] [address] [address] Manda York UA RANDOM W/MICROSCOPICon BACTERIA NONE SEEN Normal NONE SEEN [facility] Comment on above: Performed By: #### U AMIC #### [facility] [address] [address] [address] Manda York Bilirubin Ql (U) Negative Normal NEGATIVE [facility] Comment on above: Performed By: #### U AMIC #### [facility] [address] [address] [address] Manda York CAST NONE SEEN Normal NONE SEEN [facility] Comment on above: Performed By: #### U AMIC #### [facility] [address] [address] [address] Manda York Clarity (U) CLEAR Normal CLEAR [facility] Comment on above: Performed By: #### U AMIC #### [facility] [address] [address] [address] Manda York Color (U) LT. YELLOW Normal YELLOW [facility] Comment on above: Performed By: #### U AMIC #### [facility] [address] [address] [address] Manda York Crystals LM Nom (Urine sed) NONE SEEN Normal NONE SEEN [facility] Comment on above: Performed By: #### U AMIC #### [facility] [address] [address] [address] Manda York Epithelial cells LM Ql (Urine sed) RARE Normal NONE SEEN /RARE [facility] Comment on above: Performed By: #### U AMIC #### [facility] [address] [address] [address] Manda York Glucose Ql (U) Negative Normal NEGATIVE [facility] Comment on above: Performed By: #### U AMIC #### [facility] [address] [address] [address] Manda York Hemoglobin Ql (U) Negative Normal NEGATIVE [facility] Comment on above: Performed By: #### U AMIC #### [facility] [address] [address] [address] Manda York Ketones Ql (U) Negative Normal NEGATIVE [facility] Comment on above: Performed By: #### U AMIC #### [facility] [address] [place] [address] Dr. Manda York LEUKOCYTES Negative Normal NEGATIVE [facility] Comment on above: Performed By: #### U AMIC #### [facility] [address] [address] [address] Manda York MUCOUS NONE SEEN Normal NONE SEEN [facility] Comment on above: Performed By: #### U AMIC #### [facility] [address] [place] [address] Dr. Manda York Nitrite Ql (U) Negative Normal NEGATIVE [facility] Comment on above: Performed By: #### U AMIC #### [facility] [address] [place] [address] Dr. Manda York pH (U) 6.0 [pH] Normal 5-9 [facility] Comment on above: Performed By: #### U AMIC #### [facility] [address] [place] [address] Dr. Manda York RBC NONE SEEN Abnormal 0-2 [facility] Comment on above: Performed By: #### U AMIC #### [facility] [address] [place] [address] Dr. Manda York SPEC GRAVITY 1.005 Normal 1.005-<=1.02 5 [facility] Comment on above: Performed By: #### U AMIC #### [facility] [address] [place] [address] Dr. Manda York UA PROTEIN Negative Normal NEGATIVE/ TRACE [facility] Comment on above: Performed By: #### U AMIC #### [facility] [address] [place] [address] Dr. Manda York Urobilinogen Qn (U) 0.2 {Carmella'U}/dL Normal 0.2 - 1. 0 [facility] Comment on above: Performed By: #### U AMIC #### [facility] [address] [address] [address] Manda York WBC NONE SEEN Normal NONE SEEN [facility] Comment on above: Performed By: #### U AMIC #### [facility] [address] [address] [address] Manda York URIC ACID SERUMon 02-14-2022 Urate [Mass/Vol] 4.2 mg/dL Normal 2.6-6.0 [facility] Comment on above: Performed By: #### U AMIC #### [facility] [address] [place] [address] Dr. Manda York VITAMIN D 25 OHon 02-14-2022 VIT D 25-OH 22.4 ng/mL Normal [facility] Comment on above: Performed By: #### F T4 #### [facility] Laboratory [address] [place] [address] Dr. Manda York VIT D RANGES SEE BELOW Normal [facility] Comment on above: Result Comment: <20 ng/mL Vit D deficient 20 - <30 ng/mL Vit D insufficient 30 - 100 ng/mL Vit D sufficient >100 ng/mL Potential Toxicity Performed By: #### F T4 #### [facility] [address] [place] [address] Dr. Manda York METANEPHRINES FRAC. QNT 24 H R URINEon 11-28-2021 Metanephrine, U,24hr Comment Normal 36-209 [facility] Comment on above: Result Comment: No t otal volume submitted. Unable to calculate 24 hour result. Performed By: #### S LUIGI MELO #### [facility] [address] [place] [address] Dr. Manda York Metanephrine, Ur 57 ug/L Normal Undefined [facility] Comment on above: Performed By: #### S LUIGI MELO #### [facility] [address] [place] [address] Dr. Manda York Normetanephr.,U,24h Comment Normal 131-612 [facility] Comment on above: Result Comment: No t otal volume submitted. Unable to calculate 24 hour result. Performed By: #### S LORIE [facility] #### [facility] [address] [place] [address] Dr. Manda York Normetanephrine, Ur 116 ug/L Normal Undefined [facility] Comment on above: Performed By: #### S LEANN MELOC #### [facility] [address] [place] [address] Dr. Manda York METANEPHRINES PLASMA FREEon 11-27-2021 Metanephrine, Pl 22.1 pg/mL Normal 0.0-88.0 [facility] Comment on above: Performed By: #### S LORIE [facility] #### [facility] [address] [place] [address] Dr. Manda York Normetanephrine, Pl 50.7 pg/mL Normal 0.0-218.9 [facility] Comment on above: Performed By: #### Tye MEOL [facility] #### [facility] [address] [place] [address] Dr. Manda York CMV PLASMA PCRon 11-19-2021 CMV Quant DNA PCR (Plasma) Negative Normal Negative [facility] Comment on above: Result Comment: No C MV DNA detected. The quantitative range of this assay is 200 to 1 million IU/mL. Performed By: #### LEANN PATRICK #### [facility] [address] [place] [address] Dr. Manda York log10 CMV Qn DNA Pl UPTCAL Normal [facility] Comment on above: Result Comment: Unab le to calculate result since non-numeric result obtained for component test. Performed By: #### S LORIE [facility] #### [facility] [address] [place] [address] Dr. Manda York CMV AB IGMon 11-18-2021 Cytomegalovirus (CMV) Ab, IgM 43.2 AU/mL Critically high 0.0-29.9 [facility] Comment on above: Result Comment: Nega tive <30.0 Equivocal 30.0 - 34.9 Positive >34.9 A positive result is generally indicative of acute infection, reactivation or persistent IgM production. Performed By: #### S LEANN MELO #### [facility] [address] [place] [address] Dr. Manda York CMV AB, IGGon 11-18-2021 Cytomegalovirus (CMV) Ab, IgG >10.00 Critically high 0.00-0.59 [facility] Comment on above: Result Comment: Nega tive <0.60 Equivocal 0.60 - 0.69 Positive >0.69 Performed By: #### C MVIGG #### [facility] [address] [place] [address] Dr. Manda York CBC AUTO DIFFon 11-17-2021 BASO # 0.1 103/ul Normal 0.0-0.1 [facility] Comment on above: Performed By: #### C BC #### [facility] [address] [place] [address] Dr. Manda York Basophils/100 WBC (Bld) 0.6 % Normal 0.2-2.0 [facility] Comment on above: Performed By: #### C BC #### [facility] [address] [place] [address] Dr. Manda York EO # 0.2 103/ul Normal 0.0-0.7 [facility] Comment on above: Performed By: #### C BC #### [facility] [address] [place] [address] Dr. Manda York Eosinophils/100 WBC (Bld) 2.3 % Normal 0.9-7.0 [facility] Comment on above: Performed By: #### C BC #### [facility] [address] [place] [address] Dr. Manda York Erythrocyte distribution width (RBC) [Ratio] 14.2 % Normal 11.0-15.0 [facility] Comment on above: Performed By: #### C BC #### [facility] [address] [place] [address] Dr. Manda York Hematocrit (Bld) [Volume fraction] 40.2 % Normal 36.0-48.0 [facility] Comment on above: Performed By: #### C BC #### [facility] [address] [place] [address] Dr. Manda York Hemoglobin (Bld) [Mass/Vol] 12.8 g/dL Normal 12.0-16.0 [facility] Comment on above: Performed By: #### C BC #### [facility] [address] [place] [address] Dr. Manda York IG # 0.02 10e3/ul Normal 0.00-0.03 [facility] Comment on above: Performed By: #### C BC #### [facility] [address] [place] [address] Dr. Manda York IG % 0.2 % Normal 0.0-0.5 [facility] Comment on above: Performed By: #### C BC #### [facility] [address] [place] [address] Dr. Manda York LYMPH # 2.5 103/ul Normal 1.2-3.8 [facility] Comment on above: Performed By: #### C BC #### [facility] [address] [place] [address] Dr. Manda York Lymphocytes/100 WBC (Bld) 24.9 % Normal 20.5-60.0 [facility] Comment on above: Performed By: #### C BC #### [facility] [address] [place] [address] Dr. Manda York MANUAL DIFF REQ NO Normal [facility] Comment on above: Performed By: #### C BC #### [facility] [address] [place] [address] Dr. Manda York MCH (RBC) [Entitic mass] 27.9 pg Normal 26.7-34.0 [facility] Comment on above: Performed By: #### C BC #### [facility] [address] [place] [address] Dr. Manda York MCHC (RBC) [Mass/Vol] 31.8 g/dL Normal 29.9-35.2 [facility] Comment on above: Performed By: #### C BC #### [facility] [address] [place] [address] Dr. Manda York MCV (RBC) [Entitic vol] 87.6 fL Normal 81.0-99.0 [facility] Comment on above: Performed By: #### C BC #### [facility] [address] [place] [address] Dr. Manda York MONO # 0.6 103/ul Normal 0.3-0.8 [facility] Comment on above: Performed By: #### C BC #### [facility] [address] [place] [address] Dr. Manda York Monocytes/100 WBC (Bld) 6.3 % Normal 1.7-12.0 [facility] Comment on above: Performed By: #### C BC #### [facility] [address] [place] [address] Dr. Manda York NEUT # 6.5 103/ul Normal 1.4-6.5 [facility] Comment on above: Performed By: #### C BC #### [facility] [address] [place] [address] Dr. Manda York Neutrophils/100 WBC (Bld) 65.7 % Normal 43.0-75.0 [facility] Comment on above: Performed By: #### C BC #### [facility] [address] [place] [address] Dr. Manda York Platelet mean volume (Bld) [Entitic vol] 10.1 fL Normal 9.5-13.5 [facility] Comment on above: Performed By: #### C BC #### [facility] [address] [place] [address] Dr. Manda York PLT 304 103/ul Normal 150-450 [facility] Comment on above: Performed By: #### C BC #### [facility] [address] [place] [address] Dr. Manda York RBC 4.59 106/ul Normal 4.20-5.40 [facility] Comment on above: Performed By: #### C BC #### [facility] [address] [place] [address] Dr. Manda York WBC 9.9 103/ul Normal 4.0-11.0 [facility] Comment on above: Performed By: #### C BC #### [facility] [address] [place] [address] Dr. Manda York PROF 14(COMP METB)on 022 Albumin [Mass/Vol] 3.7 g/dL Normal 3.4-5.0 [facility] Comment on above: Performed By: #### C BC #### [facility] [address] [place] [address] Dr. Manda York Albumin/Globulin [Mass ratio] 1.0 {ratio} Normal [facility] Comment on above: Performed By: #### C BC #### [facility] [address] [place] [address] Dr. Manda York ALP [Catalytic activity/Vol] 65 U/L Normal 46-116 [facility] Comment on above: Performed By: #### C BC #### [facility] [address] [place] [address] Dr. Manda York ALT [Catalytic activity/Vol] 35 U/L Normal 14-59 [facility] Comment on above: Performed By: #### C BC #### [facility] [address] [place] [address] Dr. Manda York Anion gap [Moles/Vol] 13.0 mmol/L Normal [facility] Comment on above: Performed By: #### C BC #### [facility] [address] [place] [address] Dr. Manda York AST [Catalytic activity/Vol] 12 U/L Critically low 15-37 [facility] Comment on above: Performed By: #### C BC #### [facility] [address] [place] [address] Dr. Manda York Bilirubin [Mass/Vol] 0.2 mg/dL Normal 0.2-1.0 [facility] Comment on above: Performed By: #### C BC #### [facility] [address] [place] [address] Dr. Manda York Calcium [Mass/Vol] 8.7 mg/dL Normal 8.5-10.1 [facility] Comment on above: Performed By: #### C BC #### [facility] [address] [address] [address] Manda York Chloride [Moles/Vol] 104 mmol/L Normal 98-107 [facility] Comment on above: Performed By: #### C BC #### [facility] [address] [address] [address] Manda York CO2 [Moles/Vol] 24.9 mmol/L Normal 21.0-32.0 [facility] Comment on above: Performed By: #### C BC #### [facility] [address] [address] [address] Manda York Creatinine [Mass/Vol] 0.77 mg/dL Normal 0.55-1.02 [facility] Comment on above: Performed By: #### C BC #### [facility] [address] [place] [address] Dr. Manda York EGFR-AF CHADIAN >=60 Normal >=60 [facility] Comment on above: Performed By: #### C BC #### [facility] [address] [address] [address] Manda York EGFR-NON AF CHADIAN >=60 Normal >=60 [facility] Comment on above: Performed By: #### C BC #### [facility] [address] [address] [address] Manda York Globulin (S) [Mass/Vol] 3.8 g/dL Normal [facility] Comment on above: Performed By: #### C BC #### [facility] [address] [address] [address] Manda York Glucose [Mass/Vol] 110 mg/dL Critically high 74-106 [facility] Comment on above: Performed By: #### C BC #### [facility] [address] [place] [address] Dr. Manda York Potassium [Moles/Vol] 3.9 mmol/L Normal 3.5-5.1 [facility] Comment on above: Performed By: #### C BC #### [facility] [address] [address] [address] Manda York Protein [Mass/Vol] 7.5 g/dL Normal 6.4-8.2 [facility] Comment on above: Performed By: #### C BC #### [facility] [address] [address] [address] Manda York Sodium [Moles/Vol] 138 mmol/L Normal 136-145 [facility] Comment on above: Performed By: #### C BC #### [facility] [address] [address] [address] Manda York Urea nitrogen [Mass/Vol] 17.0 mg/dL Normal 7.0-18.0 [facility] Comment on above: Performed By: #### C BC #### [facility] [address] [place] [address] Dr. Manda York Urea nitrogen/Creatinine [Mass ratio] 22.1 mg/mg Normal [facility] Comment on above: Performed By: #### C BC #### [facility] [address] [place] [address] Dr. Manda York SED RATE [facility] 2021 SED RATE 45 mm/hr Critically high <=20 [place] Comment on above: Performed By: #### F T4 #### [facility] [address] [place] [address] Dr. Manda York CHRISTIAN EIA W/REFLEX 5 BIOMARKER Son 10-06-2021 CHRISTIAN Direct Positive Abnormal Negative [facility] Comment on above: Performed By: #### C BC #### [facility] [address] [place] [address] Dr. Manda York Anti-DNA (DS) Ab Qn 10 IU/mL Critically high 0-9 [facility] Comment on above: Result Comment: Nega tive <5 Equivocal 5 - 9 Positive >9 Performed By: #### C BC #### [facility] [address] [place] [address] Dr. Manda York [employer] Antibodies <0.2 Normal 0.0-0.9 [facility] Comment on above: Performed By: #### C BC #### [facility] [address] [place] [address] Manda York SEE BELOW: Comment Normal [facility] Comment on above: Result Comment: Auto antibody [...] Sm (anti-Schneider) SLE 15 - 30% --------- [employer] Mixed Connective Tissue Disease 95% (U1 nRNP, SLE 30 - 50% anti-ribonucleoprotein) Polymyositis and/or Dermatomyositis 20% --------- Scl-70 (antiDNA Scleroderma (diffuse) 20 - 35% topoisomerase) Crest 13% --------- Felicita-1 Polymyositis and/or Dermatomyositis 20 - 40% --------- Centromere B Scleroderma - Crest variant 80% Performed By: #### C BC #### [facility] [address] [place] [address] Dr. Manda Solorzanoogryaniv'tye Anti-SS-A <0.2 Normal 0.0-0.9 [facility] Comment on above: Performed By: #### C BC #### [facility] [address] [address] [address] Manda Solorzanoogryaniv's Anti-SS-B <0.2 Normal 0.0-0.9 [facility] Comment on above: Performed By: #### C BC #### [facility] [address] [address] [address] Manda York Schneider Antibodies <0.2 Normal 0.0-0.9 [facility] Comment on above: Performed By: #### C BC #### [facility] [address] [place] [address] Dr. Manda York CMV PLASMA PCRon 10-06-2021 CMV Quant DNA PCR (Plasma) Negative Normal Negative [facility] Comment on above: Result Comment: No C MV DNA detected. The quantitative range of this assay is 200 to 1 million IU/mL. Performed By: #### C MVPL #### [facility] [address] [place] [address] Dr. Manda York log10 CMV Qn DNA Pl UPTCAL Normal [facility] Comment on above: Result Comment: Unab le to calculate result since non-numeric result obtained for component test. Performed By: #### C MVPL #### [facility] [address] [place] [address] Dr. Manda York CMV AB IGMon 2021 Cytomegalovirus (CMV) Ab, IgM 35.5 AU/mL Critically high 0.0-29.9 [facility] Comment on above: Result Comment: Nega tive <30.0 Equivocal 30.0 - 34.9 Positive >34.9 A positive result is generally indicative of acute infection, reactivation or persistent IgM production. Performed By: #### S LUIGI MELO #### [facility] [address] [place] [address] Dr. Manda York CMV AB, IGGon 2021 Cytomegalovirus (CMV) Ab, IgG 6.30 U/mL Critically high 0.00-0.59 [facility] Comment on above: Result Comment: Nega tive <0.60 Equivocal 0.60 - 0.69 Positive >0.69 Performed By: #### S LEANN MELOC #### [facility] [address] [place] [address] Dr. Manda York CBC AUTO DIFFon 10-03-2021 BASO # 0.1 103/ul Normal 0.0-0.1 [facility] Comment on above: Performed By: #### C BC #### [facility] [address] [place] [address] Dr. Manda York Basophils/100 WBC (Bld) 0.7 % Normal 0.2-2.0 [facility] Comment on above: Performed By: #### C BC #### [facility] [address] [place] [address] Dr. Manda York EO # 0.2 103/ul Normal 0.0-0.7 [facility] Comment on above: Performed By: #### C BC #### [facility] [address] [place] [address] Dr. Manda York Eosinophils/100 WBC (Bld) 2.0 % Normal 0.9-7.0 [facility] Comment on above: Performed By: #### C BC #### [facility] [address] [place] [address] Dr. Manda York Erythrocyte distribution width (RBC) [Ratio] 14.4 % Normal 11.0-15.0 [facility] Comment on above: Performed By: #### C BC #### [facility] [address] [place] [address] Dr. Manda York Hematocrit (Bld) [Volume fraction] 37.2 % Normal 36.0-48.0 [facility] Comment on above: Performed By: #### C BC #### [facility] [address] [place] [address] Dr. Manda York Hemoglobin (Bld) [Mass/Vol] 12.3 g/dL Normal 12.0-16.0 [facility] Comment on above: Performed By: #### C BC #### [facility] [address] [place] [address] Dr. Manda York IG # 0.02 10e3/ul Normal 0.00-0.03 [facility] Comment on above: Performed By: #### C BC #### [facility] [address] [place] [address] Dr. aMnda York IG % 0.2 % Normal 0.0-0.5 [facility] Comment on above: Performed By: #### C BC #### [facility] [address] [place] [address] Dr. Manda York LYMPH # 2.1 103/ul Normal 1.2-3.8 [facility] Comment on above: Performed By: #### C BC #### [facility] [address] [place] [address] Dr. Manda York Lymphocytes/100 WBC (Bld) 26.4 % Normal 20.5-60.0 [facility] Comment on above: Performed By: #### C BC #### [facility] [address] [place] [address] Dr. Manda York MANUAL DIFF REQ NO Normal [place] Comment on above: Performed By: #### C BC #### [facility] [address] [place] [address] Dr. Manda York MCH (RBC) [Entitic mass] 29.2 pg Normal 26.7-34.0 [facility] Comment on above: Performed By: #### C BC #### [facility] [address] [place] [address] Dr. Manda York MCHC (RBC) [Mass/Vol] 33.1 g/dL Normal 29.9-35.2 [facility] Comment on above: Performed By: #### C BC #### [facility] [address] [place] [address] Dr. Manda York MCV (RBC) [Entitic vol] 88.4 fL Normal 81.0-99.0 [facility] Comment on above: Performed By: #### C BC #### [facility] [address] [place] [address] Dr. Manda York MONO # 0.5 103/ul Normal 0.3-0.8 [facility] Comment on above: Performed By: #### C BC #### [facility] [address] [place] [address] Dr. Manda York Monocytes/100 WBC (Bld) 6.7 % Normal 1.7-12.0 [facility] Comment on above: Performed By: #### C BC #### [facility] [address] [place] [address] Dr. Manda York NEUT # 5.2 103/ul Normal 1.4-6.5 [facility] Comment on above: Performed By: #### C BC #### [facility] [address] [address] [address] Manda York Neutrophils/100 WBC (Bld) 64.0 % Normal 43.0-75.0 [facility] Comment on above: Performed By: #### C BC #### [facility] [address] [place] [address] Dr. Manda York Platelet mean volume (Bld) [Entitic vol] 10.5 fL Normal 9.5-13.5 [facility] Comment on above: Performed By: #### C BC #### [facility] [address] [place] [address] Dr. Manda York PLT 265 103/ul Normal 150-450 [facility] Comment on above: Performed By: #### C BC #### [facility] [address] [place] [address] Dr. Manda York RBC 4.21 106/ul Normal 4.20-5.40 [facility] Comment on above: Performed By: #### C BC #### [facility] [address] [place] [address] Dr. Manda York WBC 8.1 103/ul Normal 4.0-11.0 [facility] Comment on above: Performed By: #### C BC #### [facility] [address] [place] [address] Dr. Manda York CRPon 10-03-2021 CRP [Mass/Vol] mg/L Normal <=1.0 [facility] Comment on above: Performed By: #### F T4 #### [facility] [address] [place] [address] Dr. Manda York SED RATE [facility] 2021 SED RATE 34 mm/hr Critically high <=20 [place] Comment on above: Performed By: #### C BC #### [facility] [address] [place] [address] Dr. Manda York CHLORIDE (POC)Ordered By: Jae Holley on 10-07-2020 Chloride [Moles/Vol] 106 mmol/L 98 - 10 7 mmol/L [employer] Work Phone: Catheterization and angiogra phy procedure details panelOrdered By: Jaren Holley on 10-07-2020 Cardiac Diagnostic Report Demographics Patient TERA Torres Date of Study 10/07/2020 Name Date of 1980 Gender Female Age 40 year(s) Race Room [id number]^LEYDI^JAREN Height: 67 inch, 170.18 cm Number Corporate [id number] Weight: 234 pounds, 106.1 kg ID # Patient [id number] BSA: 2.16 m^2 BMI: 36.65 kg/m^2 Acct # MR # [id number] Performing Jaren Holley Physician Referring # Physician [...] Right coronary angiography. Contrast Material: - Isovue 16692 ml Fluoroscopy Time: Diagnostic: 2:12 minutes. Total: [...] assessed as CCS II according to the [place] clinical classification. Hemodynamics Condition: Baseline Room Air [...] ---------+---------+-- ---------+ !Aortic (more content not included)... [employer] Work Phone: Jr, pn Incoming Cardio Results From [facility]/ - 10/07/2020 10:37 AM EDT Cardiac Diagnostic Report Demographics Patient TERA Torres Date of Study 10/07/2020 Name Date of 1980 Gender Female Age 40 year(s) Race Room [id number]^LEYDI^AMEER Height: 67 inch, 170.18 cm Number Corporate [id number] Weight: 234 pounds, 106.1 kg ID # Patient [id number] BSA: 2.16 m^2 BMI: 36.65 kg/m^2 Acct # MR # [id number] Performing Jaren Holley Physician Referring # Physician [...] Right coronary angiography. Contrast Material: - Isovue 39786 ml Fluoroscopy Time: Diagnostic: 2:12 minutes. Total: [...] assessed as CCS II according to the [place] clinical classification. Hemodynamics Condition: Baseline Room Air [...] ---------+---------+-- --------- + Shunts Oxygen Values O2 [id number] [employer] Phone: [employer] Phone: [employer] Phone: Creatinine W/GFR Point of Ca reOrdered By: Jaren Holley on 10-07-2020 Creatinine [Mass/Vol] 0.64 mg/dL 0.51 - 1.19 mg/dL [employer] Phone: GFR Non- >60 >60 mL/min [employer] Phone: GFR/1.73 sq M.predicted MDRD (S/P/Bld) [Vol rate/Area] mL/min/{1.73_m2} >60 mL/min [employer] Phone: GFR/1.73 sq M.predicted MDRD (S/P/Bld) [Vol rate/Area] [employer] Phone: Comment on above: Average GFR for 40-4 9 years old: 99 mL/min/1.73sq m Chronic Kidney Disease: <60 mL/min/1.73sq m Kidney failure: <15 mL/min/1.73sq m eGFR calculated using average adult body mass. Additional eGFR calculator available at: http://www.fg [employer]tec/[employer]_crcl_2012.htm Hemoglobin and hematocrit, b loodOrdered By: Jaren Holley on 10-07-2020 Hematocrit (Bld) [Volume fraction] 41 % 36 - 46 % [employer] Phone: Hemoglobin (Bld) [Mass/Vol] 14.0 g/dL 12.0 - 16.0 g/dL [employer] Phone: No Panel InformationOrdered By: Jaren Holley on 10-07-2020 [employer] Phone: POCT GlucoseOrdered By: Anu Holley on 10-07-2020 Glucose [Mass/Vol] 98 mg/dL 74 - 100 mg/dL [employer] Phone: POCT urine pregnancyOrdered By: Jaren Holley on 10-07-2020 Beta HCG ( test) Ql (U) Negative NEGATIVE [employer] Phone: Comment on above: Specimens with hCG l evels near the threshold of the test (25 mIU/mL) may give a negative or indeterminate result. In such cases, another test should be performed with a new specimen in 48-72 hours. If early is suspected clinically in this setting, correlation with quantitative serum b-hCG level is suggested. [employer] Phone: POTASSIUM (POC)Ordered By: Al Holley on 10-07-2020 Potassium [Moles/Vol] 3.8 mmol/L 3.5 - 4.5 mmol/L [employer] Phone: Platelet Counton 10-07-2020 Platelets (Bld) [#/Vol] 299 10*3/uL Normal 138-453 [facility] Comment on above: Performed By: #### P LT #### [facility] [employer] [address] [place] [id number] Mail Processor: Rick Serrano MD Platelet countOrdered By: Jae Holley on 10-07-2020 Platelets (Bld) [#/Vol] 299 10*3/uL [employer] Phone: [employer] Phone: SODIUM (POC)Ordered By: Anu Holley on 10-07-2020 Sodium [Moles/Vol] 141 mmol/L 138 - 146 mmol/L [employer] Phone: Coding Summary.on 01-12-2019 Coding Summary. 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 However, the narrative phrase printed from the coding software may appear abbreviated, or result in slightly different terminology. Coded By: Luz Judd Date Saved: 01/12/2019 10:25 am [facility] Coding Summary. CODING DATE: 01/12/2019 FINAL [facility] STATUS: Home (Routine DC) PAYOR: [...] mass index (BMI) 34.0-34.9, adult Z79.899 Other assisted (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 However, the narrative phrase printed from the coding software may appear abbreviated, or result in slightly different terminology. Revised Coded By: Luz Judd Revised Date Saved: 01/12/2019 10:25 am [facility] XR Chest 2 Viewson 9 XR [...] Valenzuela M.D. Transcribed by: BILL Technologist: ZOILA [facility] Auto Diffon 01-11-2019 Basophils/100 WBC (Bld) 0.8 % Normal 0.0-2.0 [facility] Comment on above: Order Comment: Order Added by Discern Expert. Performed By: #### 1 8529795, 7765316, 8112534, 8681495, 30279501, 9903210, 2865709, 6237517, 6405107, 01360331, 2350381 #### [facility] [address] [place] [address] Basophils/Leukocytes Auto (Bld) [Pure # fraction] 0.1 E9/L Normal 0.0-0.2 [facility] Comment on above: Order Comment: Order Added by Discern Expert. Performed By: #### 1 7258324, 3302426, 9688799, 1873966, 09014433, 0766642, 3494570, 8494925, 1792460, 13695920, 3027805 #### [facility] [address] [place] [address] Eosinophils/100 WBC (Bld) 1.9 % Normal 0.0-8.0 [facility] Comment on above: Order Comment: Order Added by Discern Expert. Performed By: #### 1 9366892, 0953218, 9065406, 0725188, 71993879, 0598162, 4318382, 1954233, 0451287, 59051558, 6441956 #### [facility] [address] [place] [address] Eosinophils/Leukocytes Auto (Bld) [Pure # fraction] 0.1 E9/L Normal 0.0-0.5 [facility] Comment on above: Order Comment: Order Added by Discern Expert. Performed By: #### 1 3296330, 2188220, 1635919, 0138378, 13729312, 0307312, 0038227, 2285226, 0078744, 02631755, 8636278 #### [facility] [address] [place] [address] Lymphocytes/100 WBC (Bld) 28.0 % Normal 14.0-50.0 [facility] Comment on above: Order Comment: Order Added by Discern Expert. Performed By: #### 1 9480515, 5731346, 2871759, 1654450, 61126894, 9560078, 8312820, 0892150, 1880827, 41930113, 3651119 #### [facility] [address] [place] [address] Lymphocytes/Leukocytes Auto (Bld) [Pure # fraction] 2.2 E9/L Normal 1.0-4.0 [facility] Comment on above: Order Comment: Order Added by Discern Expert. Performed By: #### 1 7220965, 9575385, 6663013, 4847082, 67819758, 9087039, 9865478, 0287705, 6819505, 68584864, 9066376 #### [facility] [address] [place] [address] Monocytes/100 WBC (Bld) 7.0 % Normal 4.0-14.0 [facility] Comment on above: Order Comment: Order Added by Discern Expert. Performed By: #### 1 6824446, 3026921, 0183780, 3773908, 31497171, 5222680, 6862913, 0136987, 2984096, 34732435, 4901968 #### [facility] [address] [place] [address] Monocytes/Leukocytes Auto (Bld) [Pure # fraction] 0.6 E9/L Normal 0.2-1.0 [facility] Comment on above: Order Comment: Order Added by Discern Expert. Performed By: #### 1 2822482, 7768514, 6849873, 2723831, 88217511, 2139495, 9539624, 1330073, 6497127, 38533626, 0175051 #### [facility] [address] [place] [address] Neutrophils/100 WBC (Bld) 62.3 % Normal 36.0-75.0 [facility] Comment on above: Order Comment: Order Added by Discern Expert. Performed By: #### 1 8710065, 4887492, 1116201, 7764248, 66955717, 0695147, 9004256, 7291146, 5236477, 28206818, 3106537 #### [facility] [address] [place] [address] Neutrophils/Leukocytes Auto (Bld) [Pure # fraction] 4.9 E9/L Normal 2.0-7.5 [facility] Comment on above: Order Comment: Order Added by Discern Expert. Performed By: #### 1 8062432, 5364042, 6628150, 2072059, 96192251, 9598881, 1694102, 7364356, 5345099, 43322601, 3501656 #### [facility] [address] [place] [address] BMPon 01-11-2019 Creatinine [Mass/Vol] 0.7 mg/dL Normal 0.5-1.3 [facility] Comment on above: Performed By: #### 1 5856187, 2127134, 9093544, 0358165, 07574759, 8680951, 4460189, 0487167, 9656098, 91218597, 5000883 #### [facility] [address] [place] [address] Urea nitrogen [Mass/Vol] 11 mg/dL Normal 5-21 [facility] Comment on above: Performed By: #### 1 0291908, 8479989, 5308780, 9507408, 63108560, 8261665, 6744614, 6784039, 6870661, 10651794, 6612680 #### [facility] [address] [place] [address] Urea nitrogen/Creatinine [Mass ratio] 16 No Units Normal 10-20 [facility] Comment on above: Performed By: #### 1 8087477, 2986232, 3715878, 3619782, 07821891, 6081506, 8614812, 7016854, 1667061, 72431792, 2707775 #### [facility] [address] [place] [address] Anion gap [Moles/Vol] 14 mmol/L Normal 6-16 [facility] Comment on above: Performed By: #### 1 3008444, 0547813, 0438283, 0540762, 44444931, 3095415, 5589874, 5588700, 8996991, 89458540, 9607950 #### [facility] [address] [place] [address] Calcium [Mass/Vol] 8.9 mg/dL Normal 8.9-11.1 [facility] Comment on above: Performed By: #### 1 9592320, 4190948, 3350105, 2726571, 96621693, 6274012, 3208440, 3587374, 2436187, 03622025, 1658051 #### [facility] [address] [place] [address] Chloride [Moles/Vol] 107 mmol/L Normal 101-111 [facility] Comment on above: Performed By: #### 1 3612196, 7097426, 0030009, 4966938, 38473441, 9088345, 1874539, 2675496, 0768356, 32447007, 2737274 #### [facility] [address] [place] [address] CO2 [Moles/Vol] 22 mmol/L Normal 21-31 [facility] Comment on above: Performed By: #### 1 4053489, 1682615, 0147101, 2913124, 27389089, 3309810, 3952080, 7688777, 9968257, 37211279, 9567375 #### [facility] [address] [place] [address] Glucose [Mass/Vol] 122 mg/dL Normal 55-199 [facility] Comment on above: Result Comment: If t his glucose result represents a fasting glucose, interpretation should refer to the following reference range: 55-99 mg/dL Performed By: #### 1 7614538, 4392310, 3436133, 6064687, 61402059, 2523561, 0658091, 8186491, 4511760, 96856177, 4127091 #### [facility] [address] [place] [address] Potassium [Moles/Vol] 3.8 mmol/L Normal 3.5-5.3 [facility] Comment on above: Performed By: #### 1 6582786, 1608395, 3194275, 2214897, 23632149, 3994955, 4896349, 3399243, 8245088, 18541789, 2923275 #### [facility] [address] [place] [address] Sodium [Moles/Vol] 139 mmol/L Normal 135-145 [facility] Comment on above: Performed By: #### 1 8257754, 6120073, 7217026, 1136005, 47807552, 5033611, 4649396, 1760960, 3177681, 40663719, 3233912 #### [facility] [address] [place] [address] CBC w/ Auto Diffon 9 Erythrocyte distribution width (RBC) [Ratio] 14.0 % Normal 10.9-14.2 [facility] Comment on above: Performed By: #### 1 4955406, 2216959, 8623210, 5894976, 12772421, 5673743, 3967864, 4967492, 7318089, 57798411, 0211394 #### [facility] [address] [place] [address] Hematocrit (Bld) [Volume fraction] 39.9 % Normal 34.0-46.0 [facility] Comment on above: Performed By: #### 1 7195227, 4671284, 0395635, 7492670, 52656486, 8356524, 4401132, 4270630, 9968805, 79095298, 1758997 #### [facility] [address] [place] [address] Hemoglobin (Bld) [Mass/Vol] 13.5 g/dL Normal 12.0-16.0 [facility] Comment on above: Performed By: #### 1 2410598, 9720941, 0721611, 2538295, 33800680, 9426866, 6861915, 5733543, 3547618, 71724819, 6199508 #### [facility] [address] [place] [address] MCH (RBC) [Entitic mass] 29.4 pg Normal 27.0-34.0 [facility] Comment on above: Performed By: #### 1 3955686, 9414542, 7634056, 5164888, 94446781, 7143044, 1130428, 0581395, 2759837, 62205165, 2816382 #### [facility] [address] [place] [address] MCHC (RBC) [Mass/Vol] 33.7 g/dL Normal 33.3-35.7 [facility] Comment on above: Performed By: #### 1 9240430, 5801204, 4056152, 9336876, 77508035, 9433777, 6172468, 1612632, 1076691, 13497130, 6894980 #### [facility] [address] [place] [address] MCV (RBC) [Entitic vol] 87.4 fL Normal 80.0-100.0 [facility] Comment on above: Performed By: #### 1 4899017, 3633050, 8821345, 4990634, 29211455, 5019225, 4162338, 2256185, 5567260, 24357777, 5356932 #### [facility] [address] [place] [address] Platelet mean volume (Bld) [Entitic vol] 8.5 fL Normal 6.4-10.8 [facility] Comment on above: Performed By: #### 1 2195983, 8559716, 4067933, 5265981, 25024464, 7092518, 7382271, 6693242, 5727285, 76884229, 7118621 #### [facility] [address] [place] [address] Platelets (Bld) [#/Vol] 244.0 E9/L Normal 150.0-500.0 [facility] Comment on above: Performed By: #### 1 9054705, 9621872, 1691596, 6877648, 66247263, 6755080, 4671728, 3465394, 7274306, 88972892, 9407809 #### [facility] [address] [place] [address] RBC (Bld) [#/Vol] 4.6 E12/L Normal 4.3-5.9 [facility] Comment on above: Performed By: #### 1 2610787, 3757048, 4735162, 8730159, 75178903, 4192128, 1909543, 9041230, 6876921, 74809773, 9307540 #### [facility] [address] [place] [address] WBC corrected for nucl RBC Auto (Bld) [#/Vol] 7.9 E9/L Normal 4.0-11.0 [facility] Comment on above: Performed By: #### 1 2147641, 0186690, 0746249, 6665889, 98572050, 3388363, 6205127, 3917020, 5870401, 30087929, 9679682 #### [facility] [address] [place] [address] D-Dimeron 01-11-2019 Fibrin D-dimer FEU (PPP) [Mass/Vol] 265 ng/mL Normal 215-500 [facility] Comment on above: Result Comment: This [...] infections Liver cirrhosis Performed By: #### 1 7541897, 4712196, 0839992, 0283596, 12481070, 6221317, 7356929, 5343489, 7853194, 17405196, 3041911 #### [facility] [address] [place] [address] ED Clinical Summaryon 2018 ED Clinical Summary [address] [address] ED Clinical Summary Person Information Name: JONES HALEY [place] Age: 38 Years : 1980 12:00 AM Sex: Female Language: Ugandan PCP: Charles Mitchell DO Marital Status: Single Phone: [phone] Visit Id: Visit Reason: Chest pain; CHEST [...] 01/11/2019 6:42 PM 01/11/2019 6:42 PM ADDRESS: [address] [place] [id number] PHYS DOC NOTES: MEDICAL INFORMATION: Prescriptions Given: PATIENT EDUCATION INFORMATION: Instructions: Smoking Cessation; Chest Pain (Nonspecific) Follow up: With: Address: When: [place] [phone] Business (1) Within 2 to 3 days Comments: Return to ED if symptoms worsen DIAGNOSIS: 1:Chest pain Normal [facility] ED Note-Physicianon 01-12-20 ED Note-Physician Basic [...] prescription medications Follow-up With When Contact Information [facility] Within 2 to 3 days [address] [place] [address]- Business (1) Additional Instructions: Return to ED [...] Lymph Auto: 28 % (01/11/19 16:46:00 EDT) [place] Auto: 7 % (01/11/19 16:46:00 EDT) Eos Auto: 1.9 % (01/11/19 16:46:00 EDT) Basophil Auto: 0.8 % (01/11/19 16:46:00 EDT) Neutro Absolute: 4.9 E9/L (01/11/19 16:46:00 EDT) Lymph Absolute: 2.2 E9/L (01/11/19 16:46:00 EDT) [place] Absolute: 0.6 E9/L (01/11/19 16:46:00 EDT) Eos [...] Results EC01/11/19: SINUS RHYTHM RATE 84, NORMAL W[place] AND QRS, NO ST ELEVATION OR DEPRSSION, NORMAL AXIS, NORMAL QTC NORMAL ECG Signed By: Orin Browne DO 01/11/2019 15:54:18 Normal [facility] Comment on above: Result Comment: Elec [...] and skin patches. Some may be available aswl-rtf-duyksge and others require a prescription. ? Antidepressant [...] Document Reviewed: 08/18/2012 ExitCare? Patient Information ?2015 [employer]. This information is not intended to [...] Document Reviewed: 12/13/2008 ExitCare? Patient Information ?2015 [employer]. This information is not intended to replace advice given to you by your health care provider. Make sure you discuss any questions you have with your health care provider. Normal [facility] ED Patient Summaryon 019 ED Patient Summary [place] [id number] Patient Discharge Instructions Person Information Name: JONES HALEY Age: 38 Years Arrival Date: 01/11/2019 3:44 PM Discharge Diagnosis: 1:Chest pain Primary Care Physician: Charles Mitchell DO Provider Information Primary Provider: Orin Browne DO Advanced Ornament[employer] Bronze Worker:None The exam and treatment you received in the Emergency Department were for an urgent problem and are not intended as complete care. It is important that you follow up with a doctor, nurse practitioner, or physician?s front end assistant for ongoing care. If your symptoms [...] Follow-up Instructions: With: Address: When: Charles Mitchell [address] [place] [address] [facility] (1) Within 2 to [...] opioids can be used to help relieve tcwnhwqg-pm-jttzah pain and are often prescribed following a [...] struggling with addiction, tell your health career services assistant and ask for guidance or call SAMHSA?S National Helpline at 5-619-518-GJHU. u Source: [place] Department of Health and Human Services/Center for Disease Control & Prevention [facility] Medications Given: Medication Dose Route No medications found. Medication Information: Medications to Continue with No Changes Other Medications metformin (metformin 500 mg ER Tab) 250 Milligram By Mouth 2 times a day. Comment: Pharmacy Information: Thank you for choosing [facility] Patient Education Materials: Smoking Cessation Quitting [...] and skin patches. Some may be available cnkf-lpn-jreeahl and others require a prescription. ? Antidepressant [...] Document Reviewed: 08/18/2012 ExitCare? Patient Information ?2014 [employer]. This information is not intended to [...] Document Reviewed: 12/13/2008 ExitCare? Patient Information ?2015 [employer]. This information is not intended to replace advice given to you by your health care provider. Make sure you discuss any questions you have with your health care provider. TERA Dorantes NICOLE B , have received the following patient education materials/instructions and have verbalized understanding: Patient Education Materials: Smoking Cessation; Chest Pain (Nonspecific) Follow-up Instructions: With: Address: When: Charles Mitchell [address] [place] [phone] Business (1) Within 2 to 3 days Comments: Return to ED if symptoms worsen Prescriptions: Patient Signature Date Clinician/Nurse Signature ___ Date 01/11/19 18:42:28 Normal [facility] Progress Note-Nurseon 2018 Progress Note-Nurse Pt explained dischar ge instructions and voiced understanding. Pt sts she will follow up with her PCP and denies any furthe questions at this time. Normal [facility] Troponin 0 Hr.on 01-11-2019 Troponin I.cardiac [Mass/Vol] ng/mL Normal <=0.03 [facility] Comment on above: Result Comment: New Troponin Assay 10/05/13 [place] Cutoff value > or = 0.03 ng/mL in conjunction with clinical conditions of myocardial infarction. (www.escardio.org/guidelines) Performed By: #### 1 5018710, 4281532, 8541046, 2349900, 87293760, 7581792, 0465012, 8119691, 2391862, 28235233, 3668487 #### [facility] [address] [place] [address] eGFRon 01-11-2019 GFR/1.73 sq M predicted among blacks MDRD (S/P/Bld) [Vol rate/Area] mL/min/{1.73_m2} Normal >=59 [facility] Comment on above: Order Comment: Order added by Discern Expert. Result Comment: eGFR is race adjusted. AA=. Performed By: #### 1 5727272, 5764029, 6264780, 8337122, 89015611, 4841165, 6229116, 8929581, 2554140, 72539947, 2197375 #### [facility] [address] [place] [address] GFR/1.73 sq M predicted among non-blacks MDRD (S/P/Bld) [Vol rate/Area] mL/min/{1.73_m2} Normal >=59 [facility] Comment on above: Order Comment: Order added by Discern Expert. Result Comment: [employer] Line Technician anthony kidney disease could be indicated at eGFR's of less than 60 mL/min/1.73m2. Kidney failure is indicated at less than 15 mL/min/1.73m2. Performed By: #### 1 6000329, 4591052, 4692258, 3984223, 06635472, 3163606, 0816481, 9041033, 6055891, 76266858, 6920085 #### [facility] [address] [place] [address] SPINE, LUMBOSACRAL CMPLT(TOOTIE DING)on 12-05-2018 SPINE, LUMBOSACRAL CMPLT(BENDING) Patient Name: JONES HALEY STUDY: SPINE, LUMBOSACRAL; CMPLT(BENDING); 12/05/2018 1:47 pm INDICATION: LUMBAR XR. COMPARISON: None. ACCESSION NUMBER(S): [id number] ORDERING CLINICIAN: JUAN LUIS RICHARDSON FINDINGS: No lumbar spine fracture. Scattered small endplate osteophytes. Vertebral body and disc space heights are are maintained. 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 No spondylolisthesis. No instability on flexion or extension. IMPRESSION: Degenerative changes of the lumbar spine without instability. Electronically signed by: EARNESTINE MANUEL MD [facility] Coding Summary.on 09-15-2018 Coding Summary. CODING DATE: 09/15/2018 FINAL [facility] DSC STATUS: Home (Routine DC) PAYOR: [...] F17.210 Nicotine dependence, cigarettes, uncomplicated Z79.899 Other assisted (current) drug therapy PYMT PROC [facility] STAT DESCRIPTION DOCTOR NAME DATE NOTE: The code number assigned matches the documented diagnosis and / or procedure in the patient's chart. However, the narrative phrase printed from the coding software may appear abbreviated, or result in slightly different terminology. Coded By: Luz Judd Date Saved: 09/15/2018 07:15 am Normal [facility] Auto Diffon 09-14-2018 Basophils/100 WBC (Bld) 0.6 % Normal 0.0-2.0 [facility] Comment on above: Order Comment: Order Added by Discern Expert. Performed By: #### 1 6310012, 8873112, 0016348, 3286037, 67343072, 5935141, 1524469, 2296527, 9281412, 22400786, 4471583 #### [facility] [address] [place] [address] Basophils/Leukocytes Auto (Bld) [Pure # fraction] 0.1 E9/L Normal 0.0-0.2 [facility] Comment on above: Order Comment: Order Added by Discern Expert. Performed By: #### 1 3447451, 0704769, 7024166, 5496113, 38329110, 7040597, 3245262, 1809020, 1160550, 35284543, 2882480 #### [facility] [address] [place] [address] Eosinophils/100 WBC (Bld) 2.2 % Normal 0.0-8.0 [facility] Comment on above: Order Comment: Order Added by Discern Expert. Performed By: #### 1 3388513, 8822449, 2591632, 3386678, 67644299, 2846081, 2096490, 2876043, 9925594, 79994114, 6867102 #### [facility] [address] [place] [address] Eosinophils/Leukocytes Auto (Bld) [Pure # fraction] 0.2 E9/L Normal 0.0-0.5 [facility] Comment on above: Order Comment: Order Added by Discern Expert. Performed By: #### 1 0517430, 4339564, 1588233, 2438706, 47803079, 3982750, 0130263, 1120511, 7030692, 89672531, 2143319 #### [facility] [address] [place] [address] Lymphocytes/100 WBC (Bld) 30.6 % Normal 14.0-50.0 [facility] Comment on above: Order Comment: Order Added by Discern Expert. Performed By: #### 1 2468125, 5736156, 6934592, 4747131, 45795589, 2807190, 7368929, 8414957, 1430782, 56455809, 6453862 #### [facility] [address] [place] [address] Lymphocytes/Leukocytes Auto (Bld) [Pure # fraction] 3.0 E9/L Normal 1.0-4.0 [facility] Comment on above: Order Comment: Order Added by Discern Expert. Performed By: #### 1 9590545, 1729487, 5048662, 7763257, 92007102, 6247144, 0921318, 5968645, 4518036, 73905245, 3829188 #### [facility] [address] [place] [address] Monocytes/100 WBC (Bld) 7.2 % Normal 4.0-14.0 [facility] Comment on above: Order Comment: Order Added by Discern Expert. Performed By: #### 1 6885733, 1084960, 4523941, 1417215, 68099247, 8047189, 1065493, 8543735, 9342474, 07406757, 5178173 #### [facility] [address] [place] [address] Monocytes/Leukocytes Auto (Bld) [Pure # fraction] 0.7 E9/L Normal 0.2-1.0 [facility] Comment on above: Order Comment: Order Added by Discern Expert. Performed By: #### 1 7975130, 1624311, 9142063, 8873805, 93465737, 3700976, 6194872, 4749212, 3131807, 02621022, 8970900 #### [facility] [address] [place] [address] Neutrophils/100 WBC (Bld) 59.4 % Normal 36.0-75.0 [facility] Comment on above: Order Comment: Order Added by Discern Expert. Performed By: #### 1 1947957, 2975680, 3102482, 4838381, 56291918, 7673567, 6296093, 8182820, 9218850, 55149536, 8804633 #### [facility] [address] [place] [address] Neutrophils/Leukocytes Auto (Bld) [Pure # fraction] 5.9 E9/L Normal 2.0-7.5 [facility] Comment on above: Order Comment: Order Added by Discern Expert. Performed By: #### 1 0938767, 1024900, 0459091, 1385361, 61288847, 1160050, 9281801, 3232856, 7629708, 63132511, 4013205 #### [facility] [address] [place] [address] [facility] 09-14-2018 Creatinine [Mass/Vol] 0.6 mg/dL Normal 0.5-1.3 [facility] Comment on above: Performed By: #### 1 9318036, 8630653, 8857443, 7363034, 60138256, 2339292, 6788697, 5281621, 1241778, 25626827, 1018635 #### [facility] [address] [place] [address] Urea nitrogen [Mass/Vol] 15 mg/dL Normal 5-21 [facility] Comment on above: Performed By: #### 1 7756863, 7003421, 7298754, 4620062, 52204640, 8325735, 2125751, 7419335, 3438702, 07988311, 6784597 #### [facility] [address] [place] [address] Urea nitrogen/Creatinine [Mass ratio] 25 No Units High 10-20 [facility] Comment on above: Performed By: #### 1 9606001, 9606268, 5444116, 1916791, 26058563, 8423817, 6562300, 3017940, 8825942, 87614796, 3394865 #### [facility] [address] [place] [address] Anion gap [Moles/Vol] 13 mmol/L Normal 6-16 [facility] Comment on above: Performed By: #### 1 4568643, 1239367, 9238428, 5499491, 27743611, 7807499, 5966093, 9244169, 4188224, 11336679, 2841720 #### [facility] [address] [place] [address] Calcium [Mass/Vol] 9.5 mg/dL Normal 8.9-11.1 [facility] Comment on above: Performed By: #### 1 5273496, 4309679, 9238182, 9622035, 72000817, 1448790, 6309373, 5152353, 9774863, 33978511, 9174498 #### [facility] [address] [place] [address] Chloride [Moles/Vol] 103 mmol/L Normal 101-111 [facility] Comment on above: Performed By: #### 1 5877649, 8957022, 2924197, 8189858, 75853665, 9599463, 0800359, 3524070, 1658358, 36527557, 9286892 #### [facility] [address] [place] [address] CO2 [Moles/Vol] 24 mmol/L Normal 21-31 [facility] Comment on above: Performed By: #### 1 6844772, 3252364, 2283953, 6382394, 10798647, 6547206, 5122001, 8347801, 4430705, 14598708, 8547158 #### [facility] [address] [place] [address] Glucose [Mass/Vol] 102 mg/dL Normal 55-199 [facility] Comment on above: Result Comment: If t his glucose result represents a fasting glucose, interpretation should refer to the following reference range: 55-99 mg/dL Performed By: #### 1 1341198, 6385690, 3959582, 0342801, 64254771, 2853641, 5230307, 3678379, 3315604, 87703373, 6740921 #### [facility] [address] [place] [address] Potassium [Moles/Vol] 3.6 mmol/L Normal 3.5-5.3 [facility] Comment on above: Performed By: #### 1 3368193, 7342951, 5046469, 9839531, 99938581, 7922871, 8202669, 4508530, 3578808, 05995537, 1599488 #### [facility] [address] [place] [address] Sodium [Moles/Vol] 136 mmol/L Normal 135-145 [facility] Comment on above: Performed By: #### 1 6804534, 0946210, 5122032, 8829872, 14481967, 3701019, 7153515, 2624918, 6976229, 39019884, 5614807 #### [facility] [address] [place] [address] CBC w/ Auto Diffon 9 Erythrocyte distribution width (RBC) [Ratio] 14.2 % Normal 10.9-14.2 [facility] Comment on above: Performed By: #### 1 1062086, 6979893, 9916642, 2839648, 49113745, 4075117, 9102695, 9470866, 6042331, 12884513, 8794517 #### [facility] [address] [place] [address] Hematocrit (Bld) [Volume fraction] 39.4 % Normal 34.0-46.0 [facility] Comment on above: Performed By: #### 1 7887614, 8809541, 7364053, 2913769, 42046996, 7346215, 2197621, 3580573, 4731032, 08568625, 4133770 #### [facility] [address] [place] [address] Hemoglobin (Bld) [Mass/Vol] 13.3 g/dL Normal 12.0-16.0 [facility] Comment on above: Performed By: #### 1 4081541, 9916316, 2759049, 5131645, 96628611, 9195700, 2403350, 4953791, 7104709, 65480339, 2163752 #### [facility] [address] [place] [address] MCH (RBC) [Entitic mass] 29.2 pg Normal 27.0-34.0 [facility] Comment on above: Performed By: #### 1 5175909, 7524894, 6582904, 4608122, 86344486, 3710081, 9680180, 5942167, 7834314, 79354624, 3835578 #### [facility] [address] [place] [address] MCHC (RBC) [Mass/Vol] 33.8 g/dL Normal 33.3-35.7 [facility] Comment on above: Performed By: #### 1 1578167, 6275742, 2622027, 9494436, 76668505, 9234954, 5000464, 1772652, 1838212, 09622820, 6539745 #### [facility] [address] [place] [address] MCV (RBC) [Entitic vol] 86.6 fL Normal 80.0-100.0 [facility] Comment on above: Performed By: #### 1 4386077, 6913949, 3469743, 5812697, 95347279, 3656193, 2434666, 0747222, 7412626, 52027624, 3211850 #### [facility] [address] [place] [address] Platelet mean volume (Bld) [Entitic vol] 8.8 fL Normal 6.4-10.8 [facility] Comment on above: Performed By: #### 1 5283288, 9011562, 8714418, 4376472, 15833099, 9727122, 0800866, 5978330, 8848028, 43486353, 7692023 #### [facility] [address] [place] [address] Platelets (Bld) [#/Vol] 307.0 E9/L Normal 150.0-500.0 [facility] Comment on above: Performed By: #### 1 2747117, 3207697, 4346552, 4271245, 82209485, 0280036, 7240309, 7928948, 2086035, 21409824, 1787288 #### [facility] [address] [place] [address] RBC (Bld) [#/Vol] 4.6 E12/L Normal 4.3-5.9 [facility] Comment on above: Performed By: #### 1 3766016, 5662677, 5095457, 8972212, 74217221, 3754198, 5572883, 5736999, 6223101, 16090553, 7367124 #### [facility] [address] [place] [address] WBC corrected for nucl RBC Auto (Bld) [#/Vol] 9.9 E9/L Normal 4.0-11.0 [facility] Comment on above: Performed By: #### 1 7266872, 1137058, 3718602, 5135353, 97992907, 2600159, 6520598, 2908184, 4172429, 56084797, 0490477 #### [facility] [address] [place] [address] CKon 09-14-2018 CK [Catalytic activity/Vol] 53 Int._Unit/L Normal 14-261 [facility] Comment on above: Performed By: #### 1 7032188, 8907909, 8891197, 1294099, 30909538, 1160499, 4697038, 2449185, 6105049, 32072955, 8055434 #### [facility] [address] [place] [address] ED Clinical Summaryon 2018 ED Clinical Summary [address] [address] ED Clinical Summary Person Information Name: JONES HALEY [facility] Age: 37 Years : 1980 12:00 AM Sex: Female Language: Ugandan PCP: Charles Mitchell DO Marital Status: Single Phone: [phone] Visit Id: Visit Reason: Anxiety; Paraesthesia; NUMBNESS [...] 09/14/2018 12:17 AM 09/14/2018 12:17 AM ADDRESS: [address] [place] [address] JAVID ID [id number] PHYS DOC NOTES: MEDICAL INFORMATION: Prescriptions Given: Prescription Display gabapentin (gabapentin 100 mg Cap) 100 mg = 1 cap(s), Oral, Daily, X 7 day(s), # 7 cap(s), Refills(s) 0, Pharmacy: [facility] gabapentin (gabapentin 100 mg Cap) 100 mg = 1 cap(s), Oral, Daily, X 7 day(s), # 7 cap(s), Refills(s) 0, Pharmacy: [facility]acy #[id number] magnesium oxide (magnesium oxide 400 mg Tab) 400 mg = 1 tab(s), Oral, Daily, X 7 day(s), # 7 tab(s), Refills(s) 0, Pharmacy: [facility] magnesium oxide (magnesium oxide 400 mg Tab) 400 mg = 1 tab(s), Oral, Daily, X 7 day(s), # 7 tab(s), Refills(s) 0, Pharmacy: [facility]/pharmacy #6177 Home Meds Display metformin (metformin 500 mg ER Tab) 250 mg, Oral, BID, Refills(s) 0 PATIENT EDUCATION INFORMATION: Instructions: Paresthesia, Vkjz-eg-Vagr; Restless Legs Syndrome Follow up: With: Address: When: Sayda Kelley [address] [address] Business (1) Within 1 to 2 days Comments: neurologist you may also follow up with him With: Address: When: [address] [address] Business (1) Within 1 to 2 days Comments: Return to ED if symptoms worsen DIAGNOSIS: 1:Restless leg syndrome Normal [facility] ED Note-Nursingon 09-14-2018 ED Note-Nursing Pt up to RR, gait steady. Normal [facility] ED Note-Nursing Aware of need for urine specimen, denies urge at present, states will notify when able to produce sample, will monitor. Normal [facility] ED Note-Physicianon 09-15-19 19 ED Note-Physician [...] # 7 cap(s), Refills(s) 0, Pharmacy: [facility]/pharmacy #6177 magnesium oxide, 400 mg = 1 tab(s), Oral, Daily, X 7 day(s), # 7 tab(s), Refills(s) 0, Pharmacy: [facility]/pharmacy #6177 Sodium Chloride 0.9% intravenous solution 1,000 [...] Sayda Kelley Within 1 to 2 days [facility] [place] [address]- Business (1) Additional Instructions: neurologist you may also follow up with him Charles Mitchell Within 1 to 2 days [address] [place] [address]- Business (1) Additional Instructions: Return to ED if symptoms worsen Patient Education Paresthesia, Bday-pq-Qwzd Restless Legs Syndrome Problem List/Past Medical History [...] Lymph Auto: 30.6 % (09/13/18 23:03:00 EDT) [place] Auto: 7.2 % (09/13/18 23:03:00 EDT) Eos Auto: 2.2 % (09/13/18 23:03:00 EDT) Basophil Auto: 0.6 % (09/13/18 23:03:00 EDT) Neutro Absolute: 5.9 E9/L (09/13/18 23:03:00 EDT) Lymph Absolute: 3 E9/L (09/13/18 23:03:00 EDT) [place] Absolute: 0.7 E9/L (09/13/18 23:03:00 EDT) Eos [...] Diagnostic Results No qualifying data available. Normal [facility] Comment on above: Result Comment: Elec [...] Document Reviewed: 01/29/2012 ExitCare? Patient Information ?2014 [employer]. This information is not intended to [...] ? Drawing. ? Crawling. ? Worming. ? [place]. ? Tingling. ? Pins and needles. ? [...] Document Reviewed: 08/06/2011 ExitCare? Patient Information ?2015 [facility]. This information is not intended to replace advice given to you by your health care provider. Make sure you discuss any questions you have with your health care provider. Normal [facility] ED Patient Summaryon 019 ED Patient Summary [address] [address] Patient Discharge Instructions Person Information Name: JONES HALEY Age: 37 Years Arrival Date: 09/13/2018 10:16 PM Discharge Diagnosis: 1:Restless leg syndrome Primary Care Physician: Charles Mitchell DO Provider Information Primary Provider: Génesis Lozoya DO [employer] Worker:None The exam and treatment you received in the Emergency Department were for an urgent problem and are not intended as complete care. It is important that you follow up with a doctor, nurse practitioner, or physician?s front end assistant for ongoing care. If your symptoms [...] Follow-up Instructions: With: Address: When: Sayda Warren [address] [address] Business (1) Within 1 to 2 days Comments: neurologist you may also follow up with him With: Address: When: Charles Mitchell [address] [place] [address] Business (1) Within 1 to 2 days Comments: Return to ED if symptoms worsen In the event that this physician does not participate in your insurance network, please consult with your insurance company to find a nearby participating provider. Patient Education Materials: Paresthesia, Oyzz-ih-Vhsi; Restless Legs Syndrome A MESSAGE TO ALL PATIENTS REGARDING OPIOIDS PRESCRIPTION OPIOIDS: WHAT YOU NEED TO KNOW Prescription opioids can be used to help relieve wsbyvdol-fg-qoqjbp pain and are often prescribed following a [...] struggling with addiction, tell your health career services assistant and ask for guidance or call [facility]?S National Helpline at 5-542-909-XUAI. r Source: US Department of Health and Human Services/Center for Disease Control & Prevention [facility] Medications Given: Medication Dose Route Sodium Chloride 0.9% intravenous solution 1000.00 mL Initial Volume 1000.00 mL/hr IV Piggyback Left Mid Forearm Medication Information: New Medications [id number], [address], [place] [id number], [phone] gabapentin (gabapentin 100 mg Cap) 1 Capsules By Mouth every day for 7 Days. Refills: 0. magnesium oxide (magnesium oxide 400 mg Tab) 1 Tabs By Mouth every day for 7 Days. Refills: 0. [facility], [address] [place], [place] [id number], [phone] gabapentin (gabapentin 100 mg Cap) 1 Capsules By Mouth every day for 7 Days. Refills: 0. magnesium oxide (magnesium oxide 400 mg Tab) 1 Tabs By Mouth every day for 7 Days. Refills: 0. Medications to Continue with No Changes Other Medications metformin (metformin 500 mg ER Tab) 250 Milligram By Mouth 2 times a day. Comment: Pharmacy Information: Thank you for choosing [facility] Patient Education Materials: Paresthesia Paresthesia is [...] Document Reviewed: 01/29/2012 ExitCare? Patient Information ?2015 [employer]. This information is not intended to [...] ? Drawing. ? Crawling. ? Worming. ? [place]. ? Tingling. ? Pins and needles. ? [...] Document Reviewed: 08/06/2011 ExitCare? Patient Information ?2015 [facility]. This information is not intended to replace advice given to you by your health care provider. Make sure you discuss any questions you have with your health care provider. TERA Dorantes NICOLE B , have received the following patient education materials/instructions and have verbalized understanding: Patient Education Materials: Paresthesia, Priz-pz-Ybpy; Restless Legs Syndrome Follow-up Instructions: With: Address: When: Sayda Kelley [facility], [address] [place] [address] Quantitative Medicine (1) Within 1 to 2 days Comments: neurologist you may also follow up with him With: Address: When: [facility] [address] [place] [address] Quantitative Medicine (1) Within 1 to 2 days Comments: Return to ED if symptoms worsen Prescriptions: [gabapentin (gabapentin 100 mg Cap)] [gabapentin (gabapentin 100 mg Cap)] [magnesium oxide (magnesium oxide 400 mg Tab)] [magnesium oxide (magnesium oxide 400 mg Tab)] Patient Signature Date Clinician/Nurse Signature ___ Date 09/14/18 00:21:38 Normal [facility] Hep Func Panelon 09-14-2018 Bilirubin.direct [Mass/Vol] UTC Abnormal 0.1-0.9 [facility] Comment on above: Result Comment: Resu lt verified by Discern Rule. Performed result UTC (Unable to Calculate) was sent as an Alpha code due the inability to calculate a valid numeric value. Performed By: #### 1 6244212, 4230808, 8834448, 8170324, 60296103, 7859712, 3914492, 7999050, 5502556, 58937279, 9546095 #### [facility] [address] [place] [address] Albumin [Mass/Vol] 1.1 g/dL Normal 1.1-2.2 [facility] Comment on above: Performed By: #### 1 4697090, 5533611, 7645547, 3454399, 67522062, 0464645, 2645238, 6949098, 3693007, 92842184, 2604762 #### [facility] [address] [place] [address] Albumin [Mass/Vol] 4.1 g/dL Normal 3.3-5.0 [facility] Comment on above: Performed By: #### 1 3189710, 3010377, 1096992, 8339917, 63855775, 4413531, 3647481, 8260690, 1380558, 91813168, 6541918 #### [facility] [address] [place] [address] ALP [Catalytic activity/Vol] 69 Int._Unit/L Normal 21-98 [facility] Comment on above: Performed By: #### 1 9176123, 6987468, 7146644, 8007734, 31725599, 7316983, 8062633, 7328533, 3808342, 71990258, 2736332 #### [facility] [address] [place] [address] ALT No additional P-5'-P [Catalytic activity/Vol] 27 Int._Unit/L Normal 6-46 [facility] Comment on above: Performed By: #### 1 3027364, 1167582, 6264816, 9371396, 18930790, 1127843, 6306769, 1684197, 3617957, 36729515, 6266483 #### [facility] [address] [place] [address] AST [Catalytic activity/Vol] 16 Int._Unit/L Normal 5-43 [facility] Comment on above: Performed By: #### 1 8385565, 8700046, 5111778, 1518326, 99024774, 2471405, 2186190, 1913340, 9882333, 06190597, 7372753 #### [facility] [address] [place] [address] Bilirubin [Mass/Vol] 0.5 mg/dL Normal 0.0-1.1 [facility] Comment on above: Performed By: #### 1 0393473, 2470222, 8730244, 2407530, 99722822, 7934031, 2834931, 3830296, 4557123, 74134293, 6510724 #### [facility] [address] [place] [address] Bilirubin.direct [Mass/Vol] mg/dL Normal 0.1-0.4 [facility] Comment on above: Performed By: #### 1 8157454, 5907759, 6717937, 4742817, 31889713, 6530605, 8455059, 2851215, 9080738, 16250001, 8811497 #### [facility] [address] [place] [address] Globulin (S) [Mass/Vol] 3.7 g/dL Normal 1.4-4.0 [facility] Comment on above: Performed By: #### 1 0712676, 5404772, 0943543, 8164331, 49371214, 8669751, 9745912, 2219450, 9489348, 47261804, 6219055 #### [facility] [address] [place] [address] Protein [Mass/Vol] 7.8 g/dL Normal 6.0-7.8 [facility] Comment on above: Performed By: #### 1 1633853, 9678967, 3982401, 4458825, 73186264, 1598543, 3343188, 0212394, 7984551, 28866300, 7777109 #### [facility] [address] [place] [address] Magnesiumon 09-14-2018 Magnesium [Mass/Vol] 1.9 mg/dL Normal 1.3-2.4 [facility] Comment on above: Performed By: #### 1 7800450, 6709212, 7295849, 6793149, 59834639, 1753319, 2680090, 9242816, 1900643, 60671204, 7490586 #### [facility] [address] [place] [address] Myoglobinon 09-14-2018 Myoglobin [Mass/Vol] 9 ng/mL Normal <=69 [facility] Comment on above: Performed By: #### 1 8386441, 3549892, 0824169, 7065349, 48785067, 7322830, 5464801, 6023814, 4379799, 71104485, 3328031 #### [facility] [address] [place] [address] PT & PTTon 09-14-2018 aPTT Coag (PPP) [Time] 34.5 second(s) Normal 25.1-36.5 [facility] Comment on above: Result Comment: Hepa rin therapeutic range (represented by Anti-Factor Xa activity of 0.2 - 0.4 U/mL) corresponds to PTT of 56.6 - 109.0 sec. Performed By: #### 1 1404475, 4937280, 0595955, 3151451, 15421859, 5667186, 3326630, 0144166, 7996221, 60022009, 7217581 #### [facility] [address] [place] [address] INR Coag (PPP) [Relative time] 1.0 {INR} [facility] Comment on above: Result Comment: INR results are specifically intended to assess patients stabilized on long-term Anticoagulation therapy suggested INR?s ?Less Intensive Anticoagulation? 2.0 ? 3.0 Conventional Range 3.0 ? 4.5 Performed By: #### 1 1334447, 8999946, 1230982, 1326584, 35265508, 0569910, 2958489, 8083355, 5012072, 06992706, 4726087 #### [facility] [address] [place] [address] PT Coag (PPP) [Time] 11.2 second(s) Normal 10.2-12.9 [facility] Comment on above: Performed By: #### 1 5768291, 4643179, 2648396, 1979575, 24126186, 3996807, 0467561, 2083891, 9826278, 56863364, 5038552 #### [facility] [address] [place] [address] Phosphoruson 09-14-2018 Phosphate [Mass/Vol] 3.8 mg/dL Normal 1.9-4.6 [facility] Comment on above: Performed By: #### 1 5823008, 9169739, 8773756, 0947483, 88314982, 8349201, 0808349, 2957586, 2315680, 72529913, 1643667 #### [facility] [address] [place] [address] Troponin 0 Hr.on 09-14-2018 Troponin I.cardiac [Mass/Vol] ng/mL Normal <=0.03 [facility] Comment on above: Result Comment: New Troponin Assay 10/05/13 [place] Cutoff value > or = 0.03 ng/mL in conjunction with clinical conditions of myocardial infarction. ([email or web address]/guidelines) Performed By: #### 1 1883413, 7895261, 2320892, 6711503, 24405930, 6774941, 2427349, 3319820, 3472461, 94873258, 2337725 #### [facility] [address] [place] [address] UA With Cult Reflexon 2018 Bacteria LM Ql (Urine sed) TRACE Normal Trace [facility] Comment on above: Performed By: #### 1 7870492, 7605436, 1665615, 8952713, 04908943, 3341039, 9857528, 6668726, 5519834, 41733185, 8789943 #### [facility] [address] [place] [address] Bilirubin Ql (U) Negative Normal Negative [facility] Comment on above: Performed By: #### 1 5056140, 7185373, 6296525, 8113298, 12038748, 4094763, 5018922, 7675811, 5377846, 01048144, 0915128 #### [facility] [address] [place] [address] Clarity (U) CLEAR Normal Clear [facility] Comment on above: Performed By: #### 1 2854739, 3396267, 3944193, 0569298, 96655633, 1488021, 7036181, 1039649, 3532022, 31690263, 6522622 #### [facility] [address] [place] [address] Color (U) YELLOW Normal Yellow [facility] Comment on above: Performed By: #### 1 0221991, 2510332, 2133189, 4154301, 06287245, 8727472, 0701612, 5808191, 8059473, 63741383, 8567920 #### [facility] [address] [place] [address] Epithelial cells.squamous LM.HPF (Urine sed) [#/Area] 0-2 Normal 0-2 [facility] Comment on above: Performed By: #### 1 7161100, 4327771, 7400712, 0328050, 75650589, 1509118, 5983352, 7285439, 1488309, 51301970, 3528103 #### [facility] [address] [place] [address] Glucose Test strip (U) [Mass/Vol] Negative Normal Negative [facility] Comment on above: Performed By: #### 1 9634433, 9338071, 0742303, 3180161, 43934618, 2088445, 1113815, 7486263, 5554266, 19034965, 5950195 #### [facility] [address] [place] [address] Hemoglobin Ql (U) Negative Normal Negative [facility] Comment on above: Performed By: #### 1 5070954, 8150594, 9800558, 1391731, 25192948, 4034342, 0412416, 6797812, 6129416, 53210667, 2924382 #### [facility] [address] [place] [address] Ketones (U) [Mass/Vol] Negative Normal Negative [facility] Comment on above: Performed By: #### 1 3260029, 5738380, 9150844, 4319152, 60243222, 5136199, 5505368, 4787752, 7787030, 16395437, 8557329 #### [facility] [address] [place] [address] Whatley.plasma/Whatley .RBC (Bld) [Mass ratio] 0-3 Normal 0-3 [facility] Comment on above: Performed By: #### 1 4759919, 9086452, 9932873, 1264463, 22722298, 5358477, 2820431, 8890455, 5933404, 25249451, 0131387 #### [facility] [address] [place] [address] Mucus Ql (Urine sed) TRACE Normal [facility] Comment on above: Performed By: #### 1 3653408, 7401019, 7974247, 6803057, 18411482, 8750793, 5223921, 6309069, 4509150, 37192060, 5230539 #### [facility] [address] [place] [address] Nitrite Ql (U) Negative Normal Negative [facility] Comment on above: Performed By: #### 1 2595056, 7625099, 2224276, 2962080, 73364116, 8337250, 5937204, 4122451, 6938606, 94206017, 3118157 #### [facility] [address] [place] [address] pH (U) 6.0 [pH] 5.0-9.0 [facility] Comment on above: Performed By: #### 1 6325045, 4668114, 3721172, 3415266, 88726990, 6673060, 2643705, 2555763, 0805218, 29553747, 6063826 #### [facility] [address] [place] [address] Protein (U) [Mass/Vol] Negative Normal Negative [facility] Comment on above: Performed By: #### 1 4466157, 0601997, 9669598, 2734717, 80982649, 3155727, 6461376, 0722158, 5885921, 90279154, 5105820 #### [facility] [address] [place] [address] Specific gravity (U) [Rel density] 1.010 1.005-1.030 [facility] Comment on above: Performed By: #### 1 9822425, 4153099, 8540082, 1946536, 56048567, 8290538, 0626925, 8184795, 8150670, 66304283, 1825972 #### [facility] [address] [place] [address] UA Spec Desc Clean Catch Normal [facility] Comment on above: Performed By: #### 1 9279859, 4261358, 9497105, 1469373, 17931843, 5762163, 0412537, 8139099, 6325491, 84499618, 6857590 #### [facility] [address] [place] [address] Urobilinogen Qn (U) 0.2 {Carmella'U}/dL Normal 0.0-1.0 [facility] Comment on above: Performed By: #### 1 1851212, 4330146, 3524710, 7153824, 79016994, 0593225, 2790731, 2555550, 8763116, 84490500, 4460207 #### [facility] [address] [place] [address] WBC Auto Ql (U) Negative Normal Negative [facility] Comment on above: Performed By: #### 1 9507049, 4785698, 3250402, 3699624, 36741781, 5047800, 2285076, 6236960, 7897743, 07997103, 6304397 #### [facility] [address] [place] [address] WBC LM.HPF (Urine sed) [#/Area] 0-5 Normal 0-5 [facility] Comment on above: Performed By: #### 1 5151429, 1097385, 7013410, 1671476, 58859715, 8424083, 3452195, 5521087, 1862731, 10503621, 3663030 #### [facility] [address] [place] [address] XR Chest Single Viewon 09-14 XR Chest [...] M.D. Transcribed by: minoo Technologist: AP Normal [facility] XR FOOT LEFT (MIN 3 VIEWS)on 09-14-2018 XR FOOT LEFT (MIN 3 VIEWS) Radiology exam is complete. No Radiologist dictation. Please follow up with ordering provider. Final result Normal [facility] XR FOOT RIGHT (MIN 3 VIEWS)o n 09-14-2018 XR FOOT RIGHT (MIN 3 VIEWS) Radiology exam is complete. No Radiologist dictation. Please follow up with ordering provider. Final result Normal [facility] eGFRon 09-14-2018 GFR/1.73 sq M predicted among blacks MDRD (S/P/Bld) [Vol rate/Area] mL/min/{1.73_m2} Normal >=59 [facility] Comment on above: Order Comment: Order added by Discern Expert. Result Comment: eGFR is race adjusted. AA=. Performed By: #### 1 2024126, 5253240, 8159646, 0599094, 67783310, 3224489, 6322940, 4752511, 9484116, 96004595, 6840827 #### [facility] [address] [place] [address] GFR/1.73 sq M predicted among non-blacks MDRD (S/P/Bld) [Vol rate/Area] mL/min/{1.73_m2} Normal >=59 [facility] Comment on above: Order Comment: Order added by Discern Expert. Result Comment: [employer] Line Technician anthony kidney disease could be indicated at eGFR's of less than 60 mL/min/1.73m2. Kidney failure is indicated at less than 15 mL/min/1.73m2. Performed By: #### 1 2838427, 2847363, 0521604, 7731885, 65258660, 1622603, 6527254, 1297078, 0784546, 74316103, 2629209 #### [facility] [address] [place] [address] Vital Signs Date Time Vital Sign Value Performing Clinician Facility 02-16-2024 09:23-0400 Diastolic blood pressure 72 mm[Hg] [employer]-C Gay Enciso Work Phone: [facility] 02-16-2024 09:23-0400 Heart rate 70 /min [employer] Gay Enciso Work Phone: [facility] 02-16-2024 09:23-0400 Respiratory rate 16 /min [employer] Gay Enciso Work Phone: [facility] 02-16-2024 09:23-0400 SaO2% (BldA) [Mass fraction] 96 % [employer] Gay Enciso Work Phone: [facility] 02-16-2024 09:23-0400 Systolic blood pressure 126 mm[Hg] [employer] Gay Enciso Work Phone: [facility] 02-16-2024 07:27-0400 Body height 170.18 cm [employer] Gay Enciso Work Phone: [facility] 02-16-2024 07:27-0400 Body weight 122.46 kg [employer] Gay Enciso Work Phone: [facility] 01-28-2024 11:31-0400 Body weight 126.[address] [facility] 01-28-2024 11:31-0400 Diastolic blood pressure 80 mm[Hg] [facility] 01-28-2024 11:31-0400 Heart rate 69 /min [facility] 01-28-2024 11:31-0400 SaO2% (BldA) [Mass fraction] 98 % [facility] 01-28-2024 11:31-0400 Systolic blood pressure 120 mm[Hg] [facility] 01-25-2024 11:30-0400 Body temperature 97.39 [degF] Ma Sand Work Phone: [facility] 01-25-2024 11:30-0400 Diastolic blood pressure 67 mm[Hg] Ma Sand Work Phone: [facility] 01-25-2024 11:30-0400 Heart rate 68 /min Ma Sand Work Phone: [facility] 01-25-2024 11:30-0400 Respiratory rate 16 /min Ma Sand Work Phone: [facility] 01-25-2024 11:30-0400 SaO2% (BldA) [Mass fraction] 99 % Ma Sand Work Phone: [facility] 01-25-2024 11:30-0400 Systolic blood pressure 92 mm[Hg] Ma Sand Work Phone: [facility] 12-27-2023 11:16-0400 Diastolic blood pressure 68 mm[Hg] Neda Liz PA-C Work Phone: [facility] 12-27-2023 11:16-0400 Systolic blood pressure 98 mm[Hg] Neda Liz PA-C Work Phone: [facility] 12-27-2023 11:02-0400 Body height 170.2 cm Neda Liz PA-C Work Phone: [facility] 12-27-2023 11:02-0400 Body mass index (BMI) [Ratio] 43.08 kg/m2 Neda Liz PA-C Work Phone: [facility] 12-27-2023 11:02-0400 Body temperature 97.7 [degF] Neda Liz PA-C Work Phone: [facility] 12-27-2023 11:02-0400 Body weight 124.8 kg Neda Liz PA-C Work Phone: [facility] 12-27-2023 11:02-0400 Heart rate 89 /min Neda Liz PA-C Work Phone: [facility] 12-27-2023 11:02-0400 Respiratory rate 16 /min Neda Liz PA-C Work Phone: [facility] 12-27-2023 11:02-0400 SaO2% (BldA) [Mass fraction] 98 % Neda Liz PA-C Work Phone: [facility] 12-16-2023 14:13-0400 Body height 170.[address] [facility] 12-16-2023 14:13-0400 Body mass index (BMI) [Ratio] 42.7 kg/m2 [facility] 12-16-2023 14:13-0400 Body temperature 98.6 [degF] [facility] 12-16-2023 14:13-0400 Body weight 123.[address] [facility] 12-16-2023 14:13-0400 Diastolic blood pressure 73 mm[Hg] [facility] 12-16-2023 14:13-0400 Heart rate 75 /min [facility] 12-16-2023 14:13-0400 Systolic blood pressure 106 mm[Hg] [facility] 11-29-2023 13:43-0400 Body temperature 97.59 [degF] Ma Sand Work Phone: [facility] 11-29-2023 13:43-0400 Diastolic blood pressure 51 mm[Hg] Ma Sand Work Phone: [facility] 11-29-2023 13:43-0400 Heart rate 73 /min Ma Sand Work Phone: [facility] 11-29-2023 13:43-0400 Respiratory rate 16 /min Ma Sand Work Phone: [facility] 11-29-2023 13:43-0400 SaO2% (BldA) [Mass fraction] 96 % Ma Sand Work Phone: [facility] 11-29-2023 13:43-0400 Systolic blood pressure 83 mm[Hg] Ma Sand Work Phone: [facility] 11-04-2023 13:55-0400 Body height 170.[address] [facility] 11-04-2023 13:55-0400 Body temperature 97.3 [degF] [facility] 11-04-2023 13:55-0400 Diastolic blood pressure 54 mm[Hg] [facility] 11-04-2023 13:55-0400 Heart rate 62 /min [facility] 11-04-2023 13:55-0400 Systolic blood pressure 104 mm[Hg] [facility] 10-27-2023 14:44-0400 Body temperature 97 [degF] Ma Sand Work Phone: [facility] 10-27-2023 14:44-0400 Diastolic blood pressure 72 mm[Hg] Ma Sand Work Phone: [facility] 10-27-2023 14:44-0400 Heart rate 97 /min Ma Sand Work Phone: [facility] 10-27-2023 14:44-0400 Respiratory rate 18 /min Ma Sand Work Phone: [facility] 10-27-2023 14:44-0400 SaO2% (BldA) [Mass fraction] 97 % Ma Sand Work Phone: [facility] 10-27-2023 14:44-0400 Systolic blood pressure 110 mm[Hg] Ma Sand Work Phone: [facility] 10-20-2023 13:10-0400 Body height 170.[address] [facility] 10-20-2023 13:10-0400 Body mass index (BMI) [Ratio] 43.2 kg/m2 [facility] 10-20-2023 13:10-0400 Body temperature 97.3 [degF] [facility] 10-20-2023 13:10-0400 Body weight 125.[address] [facility] 10-20-2023 13:10-0400 Diastolic blood pressure 54 mm[Hg] [facility] 10-20-2023 13:10-0400 Heart rate 74 /min [facility] 10-20-2023 13:10-0400 Systolic blood pressure 111 mm[Hg] [facility] 09-30-2023 10:48-0400 Body temperature 97 [degF] Ma Sand Work Phone: [facility] 09-30-2023 10:48-0400 Diastolic blood pressure 82 mm[Hg] Ma Sand Work Phone: [facility] 09-30-2023 10:48-0400 Heart rate 71 /min Ma Sand Work Phone: [facility] 09-30-2023 10:48-0400 Respiratory rate 18 /min Ma Sand Work Phone: [facility] 09-30-2023 10:48-0400 SaO2% (BldA) [Mass fraction] 97 % Ma Sand Work Phone: [facility] 09-30-2023 10:48-0400 Systolic blood pressure 132 mm[Hg] Ma Sand Work Phone: [facility] 09-22-2023 14:41-0400 Body weight 117.[address] [facility] 08-31-2023 10:34-0400 Body temperature 97.3 [degF] Ma Sand Work Phone: [facility] 08-31-2023 10:34-0400 Diastolic blood pressure 66 mm[Hg] Ma Sand Work Phone: [facility] 08-31-2023 10:34-0400 Heart rate 68 /min Ma Sand Work Phone: [facility] 08-31-2023 10:34-0400 Respiratory rate 18 /min Ma Sand Work Phone: [facility] 08-31-2023 10:34-0400 SaO2% (BldA) [Mass fraction] 99 % Ma Sand Work Phone: [facility] 08-31-2023 10:34-0400 Systolic blood pressure 105 mm[Hg] Ma Sand Work Phone: [facility] 08-05-2023 11:15-0400 Body temperature 97.39 [degF] Ma Sand Work Phone: [facility] 08-05-2023 11:15-0400 Diastolic blood pressure 41 mm[Hg] Ma Sand Work Phone: [facility] 08-05-2023 11:15-0400 Heart rate 68 /min Ma Sand Work Phone: [facility] 08-05-2023 11:15-0400 Respiratory rate 18 /min Ma Sand Work Phone: [facility] 08-05-2023 11:15-0400 SaO2% (BldA) [Mass fraction] 98 % Ma Sand Work Phone: [facility] 08-05-2023 11:15-0400 Systolic blood pressure 98 mm[Hg] Ma Sand Work Phone: [facility] 07-13-2023 11:49-0500 Body temperature 97.5 [degF] Ma Sand Work Phone: [facility] 07-13-2023 11:49-0500 Diastolic blood pressure 74 mm[Hg] Ma Sand Work Phone: [facility] 07-13-2023 11:49-0500 Heart rate 83 /min Ma Sand Work Phone: [facility] 07-13-2023 11:49-0500 Respiratory rate 18 /min Ma Sand Work Phone: [facility] 07-13-2023 11:49-0500 SaO2% (BldA) [Mass fraction] 96 % Ma Sand Work Phone: [facility] 07-13-2023 11:49-0500 Systolic blood pressure 109 mm[Hg] Ma Sand Work Phone: [facility] 07-13-2023 10:01-0500 Diastolic blood pressure 65 mm[Hg] Lois Holm MD Work Phone: [facility] 07-13-2023 10:01-0500 Systolic blood pressure 105 mm[Hg] Lois Holm MD Work Phone: [facility] 07-13-2023 09:41-0500 Body height 170.2 cm Lois Holm MD Work Phone: [facility] 07-13-2023 09:41-0500 Body mass index (BMI) [Ratio] 43.85 kg/m2 Lois Holm MD Work Phone: [facility] 07-13-2023 09:41-0500 Body weight 127.01 kg Lois Holm MD Work Phone: [facility] 07-13-2023 09:41-0500 Heart rate 71 /min Lois Holm MD Work Phone: [facility] 07-06-2023 14:48-0500 Body mass index (BMI) [Ratio] 41.81 kg/m2 Juan Luis Richardson MD Work Phone: [facility] 07-06-2023 14:48-0500 Body weight 119.3 kg Juan Luis Richardson MD Work Phone: [facility] 06-09-2023 08:45-0500 Body height 170.2 cm Michelle Britton PREPARATION SUPERVISOR [employer]-STRATEGIC SOURCING CONSULTANT Work Phone: [facility] 06-09-2023 08:45-0500 Body mass index (BMI) [Ratio] 44.48 kg/m2 Michelel Britton PREPARATION SUPERVISOR [employer]-STRATEGIC SOURCING CONSULTANT Work Phone: [facility] 06-09-2023 08:45-0500 Body weight 128.82 kg Michelle Britton PREPARATION SUPERVISOR [employer]-STRATEGIC SOURCING CONSULTANT Work Phone: [facility] 06-09-2023 08:45-0500 Diastolic blood pressure 82 mm[Hg] Michelle Britton PREPARATION SUPERVISOR [employer]-STRATEGIC SOURCING CONSULTANT Work Phone: [facility] 06-09-2023 08:45-0500 Heart rate 80 /min Michelle Britton PREPARATION SUPERVISOR [employer]-STRATEGIC SOURCING CONSULTANT Work Phone: [facility] 06-09-2023 08:45-0500 Systolic blood pressure 146 mm[Hg] Michelle Britton PREPARATION SUPERVISOR [employer]-STRATEGIC SOURCING CONSULTANT Work Phone: [facility] 05-26-2023 17:17-0500 Body weight 123.83 kg Christie Phan MD Work Phone: [facility] 04-26-2023 14:42-0500 Body weight 125.19 kg Christie Phan MD Work Phone: [facility] 03-19-2023 11:16-0400 Body temperature 97.7 [degF] Ma Sand Work Phone: [facility] 03-19-2023 11:16-0400 Diastolic blood pressure 54 mm[Hg] Ma Sand Work Phone: [facility] 03-19-2023 11:16-0400 Heart rate 75 /min Ma Sand Work Phone: [facility] 03-19-2023 11:16-0400 Respiratory rate 16 /min Ma Sand Work Phone: [facility] 03-19-2023 11:16-0400 SaO2% (BldA) [Mass fraction] 96 % Ma Sand Work Phone: [facility] 03-19-2023 11:16-0400 Systolic blood pressure 111 mm[Hg] Ma Sand Work Phone: [facility] 02-19-2023 10:56-0400 Body height 170.2 cm Jose Najera MD Work Phone: [facility] 02-19-2023 10:56-0400 Body temperature 97.39 [degF] Jose Najera MD Work Phone: [facility] 02-19-2023 10:56-0400 Body weight 120.75 kg Jose Najera MD Work Phone: [facility] 02-19-2023 10:56-0400 Diastolic blood pressure 69 mm[Hg] Jose Najera MD Work Phone: [facility] 02-19-2023 10:56-0400 Heart rate 110 /min Jose Najera MD Work Phone: [facility] 02-19-2023 10:56-0400 Respiratory rate 16 /min Jose Najera MD Work Phone: [facility] 02-19-2023 10:56-0400 SaO2% (BldA) [Mass fraction] 96 % Jose Najera MD Work Phone: [facility] 02-19-2023 10:56-0400 Systolic blood pressure 132 mm[Hg] Jose Najera MD Work Phone: [facility] 01-22-2023 12:09-0400 Diastolic blood pressure 76 mm[Hg] Ma Sand Work Phone: [facility] 01-22-2023 12:09-0400 Systolic blood pressure 107 mm[Hg] Ma Sand Work Phone: [facility] 01-22-2023 12:08-0400 Body temperature 97.59 [degF] Ma Sand Work Phone: [facility] 01-22-2023 12:08-0400 Heart rate 102 /min Ma Sand Work Phone: [facility] 01-22-2023 12:08-0400 Respiratory rate 16 /min Ma Sand Work Phone: [facility] 01-22-2023 12:08-0400 SaO2% (BldA) [Mass fraction] 97 % Ma Sand Work Phone: [facility] 11-19-2022 11:00-0400 Body temperature 97.2 [degF] Ma Sand Work Phone: [facility] 11-19-2022 11:00-0400 Diastolic blood pressure 54 mm[Hg] Ma Sand Work Phone: [facility] 11-19-2022 11:00-0400 Heart rate 98 /min Ma Sand Work Phone: [facility] 11-19-2022 11:00-0400 Respiratory rate 16 /min Ma Sand Work Phone: [facility] 11-19-2022 11:00-0400 SaO2% (BldA) [Mass fraction] 98 % Ma Sand Work Phone: [facility] 11-19-2022 11:00-0400 Systolic blood pressure 126 mm[Hg] Ma Sand Work Phone: [facility] 10-22-2022 11:51-0400 Body height 170.2 cm Ma Sand Work Phone: [facility] 10-22-2022 11:51-0400 Body weight 120.66 kg Ma Sand Work Phone: [facility] 10-22-2022 11:51-0400 Respiratory rate 16 /min Ma Sand Work Phone: [facility] 10-22-2022 10:50-0400 Body height 170.2 cm Jose Najera MD Work Phone: [facility] 10-22-2022 10:50-0400 Body temperature 97 [degF] Jose Najera MD Work Phone: [facility] 10-22-2022 10:50-0400 Body weight 120.75 kg Jose Najera MD Work Phone: [facility] 10-22-2022 10:50-0400 Diastolic blood pressure 55 mm[Hg] Jose Najera MD Work Phone: [facility] 10-22-2022 10:50-0400 Heart rate 78 /min Jose Najera MD Work Phone: [facility] 10-22-2022 10:50-0400 Respiratory rate 16 /min Jose Najera MD Work Phone: [facility] 10-22-2022 10:50-0400 SaO2% (BldA) [Mass fraction] 98 % Jose Najera MD Work Phone: [facility] 10-22-2022 10:50-0400 Systolic blood pressure 132 mm[Hg] Jose Najera MD Work Phone: [facility] 09-24-2022 10:22-0400 Body height 170.2 cm Ma Sand Work Phone: [facility] 09-24-2022 10:22-0400 Body temperature 97 [degF] Ma Sand Work Phone: [facility] 09-24-2022 10:22-0400 Body weight 120.2 kg Ma Sand Work Phone: [facility] 09-24-2022 10:22-0400 Diastolic blood pressure 81 mm[Hg] Ma Sand Work Phone: [facility] 09-24-2022 10:22-0400 Heart rate 77 /min Ma Sand Work Phone: [facility] 09-24-2022 10:22-0400 Respiratory rate 16 /min Ma Sand Work Phone: [facility] 09-24-2022 10:22-0400 SaO2% (BldA) [Mass fraction] 97 % Ma Sand Work Phone: [facility] 09-24-2022 10:22-0400 Systolic blood pressure 116 mm[Hg] Ma Sand Work Phone: [facility] 09-07-2022 14:03-0400 Body weight 120.2 kg Christie Phan MD Work Phone: [facility] 08-27-2022 09:45-0400 Body height 170.2 cm Wilmer Driver APRN.STRATEGIC SOURCING CONSULTANT Work Phone: [facility] 08-27-2022 09:45-0400 Body temperature 97.7 [degF] Wilmer Driver APRN.STRATEGIC SOURCING CONSULTANT Work Phone: [facility] 08-27-2022 09:45-0400 Body weight 118.66 kg Wilmer Driver APRN.STRATEGIC SOURCING CONSULTANT Work Phone: [facility] 08-27-2022 09:45-0400 Diastolic blood pressure 55 mm[Hg] Wilmer Driver APRN.STRATEGIC SOURCING CONSULTANT Work Phone: [facility] 08-27-2022 09:45-0400 Heart rate 63 /min Wilmer Driver APRN.STRATEGIC SOURCING CONSULTANT Work Phone: [facility] 08-27-2022 09:45-0400 Respiratory rate 16 /min Wilmer Driver APRN.STRATEGIC SOURCING CONSULTANT Work Phone: [facility] 08-27-2022 09:45-0400 SaO2% (BldA) [Mass fraction] 96 % Wilmer Driver PREPARATION SUPERVISOR [employer].STRATEGIC SOURCING CONSULTANT Work Phone: [facility] 08-27-2022 09:45-0400 Systolic blood pressure 117 mm[Hg] Wilmer Driver APRN.STRATEGIC SOURCING CONSULTANT Work Phone: [facility] 05-20-2022 13:28-0500 Body height 170.2 cm Jose Najera MD Work Phone: [facility] 05-20-2022 13:28-0500 Body temperature 97.7 [degF] Jose Najera MD Work Phone: [facility] 05-20-2022 13:28-0500 Diastolic blood pressure 70 mm[Hg] Jose Najera MD Work Phone: [facility] 05-20-2022 13:28-0500 Heart rate 93 /min Jose Najera MD Work Phone: [facility] 05-20-2022 13:28-0500 Respiratory rate 16 /min Jose Najera MD Work Phone: [facility] 05-20-2022 13:28-0500 SaO2% (BldA) [Mass fraction] 97 % Jose Najera MD Work Phone: [facility] 05-20-2022 13:28-0500 Systolic blood pressure 127 mm[Hg] Jose Najera MD Work Phone: [facility] 03-18-2022 10:49-0400 Body height 170.2 cm Jose Najera MD Work Phone: [facility] 03-18-2022 10:49-0400 Body temperature 97.81 [degF] Jose Najera MD Work Phone: [facility] 03-18-2022 10:49-0400 Body weight 113.4 kg Jose Najera MD Work Phone: [facility] 03-18-2022 10:49-0400 Diastolic blood pressure 49 mm[Hg] Jose Najera MD Work Phone: [facility] 03-18-2022 10:49-0400 Heart rate 86 /min Jose Najera MD Work Phone: [facility] 03-18-2022 10:49-0400 Respiratory rate 16 /min Jose Najera MD Work Phone: [facility] 03-18-2022 10:49-0400 SaO2% (BldA) [Mass fraction] 98 % Jose Najera MD Work Phone: [facility] 03-18-2022 10:49-0400 Systolic blood pressure 145 mm[Hg] Jose Najera MD Work Phone: [facility] 03-09-2022 11:41-0400 Body height 170.2 cm Christie Phan MD Work Phone: [facility] 03-09-2022 11:41-0400 Body weight 112.49 kg Christie Phan MD Work Phone: [facility] 03-09-2022 11:41-0400 Diastolic blood pressure 100 mm[Hg] Christie Phan MD Work Phone: [facility] 03-09-2022 11:41-0400 Systolic blood pressure 158 mm[Hg] Christie Phan MD Work Phone: [facility] 03-04-2022 10:39-0400 Body height 170.2 cm Jose Najera MD Work Phone: [facility] 03-04-2022 10:39-0400 Body temperature 97.5 [degF] Jose Najera MD Work Phone: [facility] 03-04-2022 10:39-0400 Body weight 112.76 kg Jose Najera MD Work Phone: [facility] 03-04-2022 10:39-0400 Diastolic blood pressure 48 mm[Hg] Jose Najera MD Work Phone: [facility] 03-04-2022 10:39-0400 Heart rate 79 /min Jose Najera MD Work Phone: [facility] 03-04-2022 10:39-0400 Respiratory rate 16 /min Jose Najera MD Work Phone: [facility] 03-04-2022 10:39-0400 SaO2% (BldA) [Mass fraction] 99 % Jose Najera MD Work Phone: [facility] 03-04-2022 10:39-0400 Systolic blood pressure 132 mm[Hg] Jose Najera MD Work Phone: [facility] 11-26-2021 16:00-0400 Body height 168.91 cm Mirela Kelsey Other [facility] [facility] Other 11-26-2021 16:00-0400 Body mass index (BMI) [Ratio] 37.68 kg/m2 Mirela Kelsey Other [facility] Other 11-26-2021 16:00-0400 Body temperature 98.4 [degF] Mirela Kelsey Other [facility] Other 11-26-2021 16:00-0400 Body weight 107.5 kg Mirela Kelsey Other [facility] Other 11-26-2021 16:00-0400 Diastolic blood pressure 61 mm[Hg] Mirela Kelsey Other [facility] Other 11-26-2021 16:00-0400 Systolic blood pressure 115 mm[Hg] Mirela Kelsey Other [facility] Other 10-24-2021 08:18-0400 Body weight 108.86 kg Lynne Last MD Work Phone: [facility] 10-24-2021 08:18-0400 Diastolic blood pressure 42 mm[Hg] Lynne Ni MD Work Phone: [facility] 10-24-2021 08:18-0400 Heart rate 72 /min Lynne Ni MD Work Phone: [facility] 10-24-2021 08:18-0400 Systolic blood pressure 106 mm[Hg] Lynne Ni MD Work Phone: [facility] 10-15-2021 15:45-0400 Body height 168.91 cm Mirela Kelsey Other [facility] Other 10-15-2021 15:45-0400 Body mass index (BMI) [Ratio] 38.31 kg/m2 Mirela Kelsey Other [facility] Other 10-15-2021 15:45-0400 Body temperature 98.1 [degF] Mirela Kelsey Other [facility] Other 10-15-2021 15:45-0400 Body weight 109.32 kg Mirela Kelsey Other [facility] Other 10-15-2021 15:45-0400 Diastolic blood pressure 60 mm[Hg] Mirela Kelsey Other [facility] Other 10-15-2021 15:45-0400 Systolic blood pressure 114 mm[Hg] Mirela Kelsey Other [facility] Other 09-11-2021 15:15-0400 Body height 168.91 cm Mirela Kelsey Other [facility] Other 09-11-2021 15:15-0400 Body mass index (BMI) [Ratio] 37.99 kg/m2 Mirela Kelsey Other [facility] Other 09-11-2021 15:15-0400 Body temperature 97.9 [degF] Mirela Kelsey Other [facility] Other 09-11-2021 15:15-0400 Body weight 108.41 kg Mirela Kelsey Other [facility] Other 09-11-2021 15:15-0400 Diastolic blood pressure 83 mm[Hg] Mirela Kelsey Other [facility] Other 09-11-2021 15:15-0400 Systolic blood pressure 144 mm[Hg] Mirela Kelsey Other [facility] Other 10-07-2020 12:45-0400 Diastolic blood pressure 78 mm[Hg] [facility] [employer] Phone: 10-07-2020 12:45-0400 Heart rate 68 /min [facility] Phone: 10-07-2020 12:45-0400 SaO2% (BldA) [Mass fraction] 99 % [facility] Phone: 10-07-2020 12:45-0400 Systolic blood pressure 112 mm[Hg] [facility] [employer] Phone: 10-07-2020 10:45-0400 Respiratory rate 22 /min [facility] Phone: 10-07-2020 09:01-0400 Body height 170.2 cm [facility] Phone: 10-07-2020 09:01-0400 Body mass index (BMI) [Ratio] 36.65 kg/m2 [facility] Phone: 10-07-2020 09:01-0400 Body temperature 97.81 [degF] [facility] Work Phone: 10-07-2020 09:01-0400 Body weight 106.14 kg [facility] Work Phone: Encounters Encounter Date Encounter Type Care Provider Facility Start: 02-18-2024 End: 02-18-2024 Telephone encounter Lynne Ni MD Work Phone: Rheumatology Start: 02-16-2024 End: 02-16-2024 Admission to same day surgery center CATCH BASIN CLEANER-C Gay Enciso Work Phone: [facility] Work Phone: Start: 02-16-2024 End: 02-16-2024 ambulatory CATCH BASIN CLEANER-C Gay Enciso Work Phone: [facility] Work Phone: Start: 02-15-2024 End: 02-15-2024 Telephone encounter Timmyra Heck STRATEGIC SOURCING CONSULTANT Work Phone: Neurology Comment on above: Orders (PAP RX.) Start: 02-14-2024 End: 02-14-2024 Follow-up encounter Aidee Quintanilla [facility] Comment on above: SPP Inflammatory Con ditions - Follow-up (Benlysta); Insurance Authorization ([place] Renew[place] Submitted) Start: 02-14-2024 End: 02-14-2024 ambulatory Timmy Heck STRATEGIC SOURCING CONSULTANT Work Phone: Neurology Comment on above: JOSE RAFAEL (obstructive sle ep apnea) (Primary Dx); Somnolence, daytime SPP Inflammatory Con ditions - Medication Refill (Benlysta - NCA 09/2024) Start: 02-14-2024 End: 02-14-2024 Telemedicine consultation with patient Timmy Heck APROrionSTRATEGIC SOURCING CONSULTANT Work Phone: Neurology Start: 02-09-2024 End: 02-09-2024 ambulatory SHARRON ROGERS Not Available Start: 01-28-2024 End: 01-31-2024 ambulatory Alhaji Head DO Work Phone: [facility] Work Phone: Comment on above: Blood work Start: 01-28-2024 End: 01-28-2024 Patient encounter procedure [facility] Amelia Work Phone: Start: 01-27-2024 End: 01-27-2024 Telemedicine consultation with patient Alhaji Head DO Work Phone: Infectious Disease Start: 01-27-2024 End: 01-27-2024 ambulatory Alhaji Head DO Work Phone: Infectious Disease Comment on above: Pseudomonas infectio n (Primary Dx); Other systemic lupus erythematosus with other organ involvement (HCC); On prednisone therapy; Long-term use of Plaquenil Start: 01-25-2024 End: 01-25-2024 Nursing evaluation of patient and report Ma Nurse Dre Marshall Work Phone: Hematology/Oncology Comment on above: Elevated sed rate (P rimary Dx); Megaloblastic anemia due to vitamin B12 deficiency Start: 01-25-2024 End: 01-25-2024 ambulatory MADELAINE Lynne FERRIS Facility:[facility] Start: 01-18-2024 End: 01-19-2024 Specialty Pharmacy Aidee Quintanilla [facility] Comment on above: SPP Inflammatory Con ditions - Medication Refill (Benlysta) Start: 01-12-2024 End: 01-12-2024 ambulatory Lynne Ni MD Work Phone: Rheumatology Start: 01-12-2024 End: 01-12-2024 Patient encounter procedure Lynne Ni MD Work Phone: Rheumatology Comment on above: Flair Start: 12-30-2023 Telephone encounter Lynne shaw MD Work Phone: Rheumatology Comment on above: Results Start: 12-27-2023 Telephone encounter Neda su PA-C Work Phone: Hematology/Oncology Comment on above: Results Start: 12-27-2023 End: 12-27-2023 Nursing evaluation of patient and report Hoda Marshall Work Phone: Hematology/Oncology Comment on above: Elevated sed rate (P rimary Dx); Megaloblastic anemia due to vitamin B12 deficiency Start: 12-27-2023 End: 12-27-2023 Office outpatient visit 15 minutes Neda Narayanan PA-C Work Phone: Hematology/Oncology Comment on above: 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); Elevated sed rate; Obstructive sleep apnea syndrome Start: 12-27-2023 End: 12-27-2023 ambulatory MADELAINE Lynne FERRIS Facility:[facility] Start: 12-24-2023 End: 12-24-2023 ambulatory [facility] Ambulatory Start: 12-21-2023 End: 12-21-2023 ambulatory SHARRON ROGERS Not Available Start: 12-16-2023 End: 12-16-2023 ambulatory [facility] Work Phone: Start: 12-16-2023 End: 12-16-2023 Patient encounter procedure [facility] Infect[facility] Work Phone: Start: 12-15-2023 End: 12-15-2023 ambulatory SHARRON ROGERS Not Available Start: 12-13-2023 Specialty Pharmacy Aidee coreas [facility] Comment on above: SPP Inflammatory Con ditions - Medication Refill (Benlysta - NCA 09/2024) Start: 12-04-2023 End: 12-04-2023 ambulatory DIGNA PRICE Not Available Start: 11-29-2023 End: 11-29-2023 ambulatory MADELAINE FERRIS Facility:[facility] Start: 11-29-2023 End: 11-29-2023 Nursing evaluation of patient and report Hoda Marshall Work Phone: Hematology/Oncology Comment on above: Elevated sed rate (P rimary Dx); Megaloblastic anemia due to vitamin B12 deficiency Start: 11-25-2023 ambulatory Jose nelson MD Work Phone: Hematology/Oncology Comment on above: Folic acid Start: 11-24-2023 End: 11-24-2023 ambulatory MADELAINE FERRIS Facility:[facility] Start: 11-15-2023 End: 11-15-2023 Specialty Pharmacy Aidee Quintanilla RPh [facility] Comment on above: SPP Inflammatory Con ditions - Medication Refill (Benlysta - NCA 09/2024) Start: 11-11-2023 Refill Lynne Ni MD Work Phone: Rheumatology Comment on above: Refill Request Start: 11-08-2023 End: 11-08-2023 ambulatory SHARRON ROGERS Not Available Start: 11-04-2023 End: 11-04-2023 ambulatory [facility] Work Phone: Start: 11-04-2023 End: 11-04-2023 Patient encounter procedure [facility] Infectious Disease Work Phone: Start: 10-27-2023 End: [...] Start: 10-20-2023 End: 10-20-2023 ambulatory [facility] Work Phone: Start: 10-20-2023 End: 10-20-2023 Patient encounter procedure [facility] Infectious Disease Work Phone: Start: 10-12-2023 Specialty Pharmacy Aidee Quintanilla RP [facility] Comment on above: SPP Inflammatory Con ditions - Medication Refill (Benlysta) Start: 10-05-2023 End: 10-05-2023 ambulatory LYNNE NI Facility:[facility] Start: 10-05-2023 End: 10-05-2023 Patient encounter procedure [...] of Plaquenil; Long-term use of high-risk medication; shelter 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; 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; Bilateral hand pain; History of vitamin D deficiency Start: 10-05-2023 End: 10-05-2023 Telemedicine consultation with patient Lynne Ni MD Work Phone: Rheumatology Start: 09-30-2023 End: 09-30-2023 Nursing evaluation of patient and report Ma Nurse Dre Marshall Work Phone: Hematology/Oncology Comment on above: Elevated sed rate (P rimary Dx); Megaloblastic anemia due to vitamin B12 deficiency Start: 09-30-2023 End: 09-30-2023 ambulatory MADELAINE FERRIS Facility:[facility] Start: 09-22-2023 End: 09-22-2023 Patient encounter procedure [facility] Gastroenterology Work Phone: Start: 09-13-2023 End: 09-13-2023 Specialty Pharmacy Aidee Quintanilla [facility] Comment on above: [...] 08-31-2023 Nursing evaluation of patient and report Hoda Marshall Work Phone: Hematology/Oncology Comment on above: 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); Elevated sed rate Start: 08-31-2023 End: 08-31-2023 ambulatory [facility] Facility:[facility] Start: 08-12-2023 Specialty Pharmacy Aidee Quintanilla RP [facility] Comment on above: SPP Inflammatory Con ditions - Medication Refill (Benlysta ) Start: 08-10-2023 End: 08-10-2023 ambulatory GORDO BARFIELD Not Available Start: 08-05-2023 End: 08-05-2023 ambulatory [facility] Facility:[facility] Start: 08-05-2023 End: 08-05-2023 Nursing evaluation of patient and report Hoda Marshall Work Phone: Hematology/Oncology Comment on above: 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); Elevated sed rate Start: 07-28-2023 Non-patient / Non-visit [facility] Gastroenterology Work Phone: Start: 07-15-2023 End: 07-15-2023 ambulatory BERNABE A SHAZIA Not Available Start: 07-13-2023 End: 07-13-2023 ambulatory [facility] Start: 07-13-2023 End: 07-13-2023 Nursing evaluation of patient and report Hoda Marshall Work Phone: Hematology/Oncology Comment on above: 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); Elevated sed rate SPP Inflammatory Con ditions - Medication Refill (Benlysta ) Start: 07-13-2023 End: 07-13-2023 Office outpatient new 45 minutes Lois Holm MD Work Phone: [facility] Comment on above: Shortness of breath [...] Start: 06-10-2023 End: 06-10-2023 ambulatory MADELAINE FERRIS Facility:[facility] Start: 06-09-2023 End: 06-09-2023 Office outpatient new 60 minutes Michelle Sharpeel PREPARATION SUPERVISOR FREEZING-STRATEGIC SOURCING CONSULTANT Work Phone: [facility] Comment on above: Irregular heart rate (Primary Dx); Essential hypertension; Autonomic dysfunction; Obstructive sleep apnea syndrome; Primary hypertension Start: 06-09-2023 End: 06-09-2023 ambulatory [facility] Ambulatory Start: 06-03-2023 End: 06-03-2023 ambulatory MADELAINE FERRIS Facility:[facility] Start: 06-01-2023 End: 06-01-2023 ambulatory MADELAINE M Cristina Facility:[facility] Start: 06-01-2023 End: 06-01-2023 ambulatory SHARRON ROGERS Not Available Start: 05-26-2023 End: 05-26-2023 Office outpatient visit 40 minutes Christie Phan MD Work Phone: Integrated Medicine Comment on above: Obesity, Class III, BMI >= 40 (Primary Dx); Other chronic pain Start: 05-26-2023 End: 05-26-2023 ambulatory CHRISTIE PHAN Facility:[facility] Start: 05-10-2023 End: 05-10-2023 ambulatory SHARRON ROGERS Not Available Start: 05-06-2023 End: 05-06-2023 ambulatory SHARRON ROGERS [...] on above: Phentermine Start: 04-22-2023 Telephone encounter Bhargav Osuna Hematology/Oncology Comment on above: Results Start: 04-21-2023 End: 04-21-2023 ambulatory SHARRON ROGERS Not Available Start: 04-16-2023 End: 04-16-2023 Nursing evaluation of patient and report Hoda Marshall Work Phone: Hematology/Oncology Comment on above: 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); Elevated sed rate Start: 04-16-2023 End: 04-16-2023 ambulatory MADELAINE FERRIS Facility:[facility] Start: 04-09-2023 End: 04-09-2023 ambulatory MADELIANE Lynne Cristina Facility:[facility] Start: 03-19-2023 End: 03-19-2023 ambulatory [facility] Facility:[facility] Start: 03-19-2023 End: 03-19-2023 Nursing evaluation of patient and report Hoda Marshall Work Phone: Hematology/Oncology Comment on above: 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); Elevated sed rate Start: 03-16-2023 [facility] Work Phone: Neurology Comment on above: CMN Start: 03-11-2023 End: 03-11-2023 ambulatory [facility] Facility:[facility] Start: 03-11-2023 End: 03-11-2023 Nursing evaluation of patient and report Nurse Morgan Fu Work Phone: Rheumatology Comment on above: Systemic lupus eryth ematosus, unspecified SLE type, unspecified organ involvement status (HCC) (Primary Dx) Start: 03-03-2023 End: 03-03-2023 [facility] Facility:[facility] Start: 03-01-2023 Telephone encounter Lynne shaw MD [...] Rheumatology Comment on above: Refill Request Start: 02-04-2023 End: 02-04-2023 ambulatory Lynne Ni [...] 02-04-2023 Patient encounter procedure Clinton Schroeder (Pharmacist) [facility] Comment on above: SPP Inflammatory Con ditions - Treatment Referral (Benlysta); Insurance Authorization ([place] submission pending) Start: 02-04-2023 Telephone encounter Lynne shaw MD Work Phone: Rheumatology Comment on above: Appointment; Orders; Medication Authorization Start: 02-04-2023 End: 02-04-2023 Telemedicine consultation with patient Lynne Ni MD Work Phone: [facility] Start: 01-28-2023 Refill Christie Hays Work Phone: Integrated Medicine Comment on above: Refill Request Start: 01-24-2023 Telephone encounter Lynne shaw MD Work Phone: Rheumatology Comment on above: Results Start: 01-22-2023 End: 01-22-2023 Nursing evaluation of patient and report Ak Nurse Dre Marshall Work Phone: Hematology/Oncology Comment [...] with patient Misty Nelson MD Work Phone: [facility] Start: 12-24-2022 Refill Christie Hays Work Phone: Integrated Medicine Comment on above: Refill Request Start: 12-18-2022 Telephone encounter Lidia Argueta RN Work Phone: Hematology/Oncology Comment on above: Care Coordination (a ppointment) Start: 12-17-2022 End: 12-18-2022 ambulatory Wilmer Driver APRN.STRATEGIC SOURCING CONSULTANT Work Phone: Hematology/Oncology Comment on above: 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); Chronic fatigue and malaise Start: 12-17-2022 End: 12-18-2022 Telemedicine consultation with patient Wilmer Driver APRN.STRATEGIC SOURCING CONSULTANT Work Phone: [facility] Start: 12-16-2022 Telephone encounter Pamella bernstein RN Work Phone: Hematology/Oncology Comment on above: Appointment Start: 12-08-2022 ambulatory Jose nelson MD Work Phone: Hematology/Oncology Comment on above: Test results Start: 12-08-2022 Telephone encounter Bhargav Osuna Hematology/Oncology Comment on above: Results Start: 11-22-2022 ambulatory Lynne Ni MD Work Phone: Rheumatology Comment on above: update Start: 11-19-2022 End: 11-19-2022 Nursing evaluation of patient and report Hoda Marshall Work Phone: Hematology/Oncology Comment on above: 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); Elevated sed rate Start: 10-22-2022 End: 10-22-2022 Nursing evaluation of patient and report Hoda Marshall Work Phone: Hematology/Oncology Comment on above: 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); Elevated sed rate Start: 10-22-2022 End: 10-22-2022 Office outpatient visit 15 minutes Jose Najear MD Work Phone: Hematology/Oncology Comment on above: 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); Elevated sed rate; High total serum IgM; Chronic fatigue and malaise; Obstructive sleep apnea syndrome Start: 09-24-2022 End: 09-25-2022 ambulatory MICKY PARNELL . Facility: Start: 09-24-2022 End: 09-24-2022 Nursing evaluation of patient and report Hoda Marshall Work Phone: Hematology/Oncology Comment on above: 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); Elevated sed rate Start: 09-10-2022 End: 09-10-[address] MADELAINE FERRIS . Facility: Start: 09-08-2022 Telephone encounter Angelia king [facility] Home Delivery - Compliance Comment [...] Start: 08-27-2022 End: 08-27-2022 ambulatory Wilmer Driver APRN.STRATEGIC SOURCING CONSULTANT Work Phone: Hematology/Oncology Comment on above: 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); Elevated sed rate; High total serum IgM; Chronic fatigue and malaise; JOSE RAFAEL (obstructive sleep apnea) Start: 08-27-2022 End: 08-27-2022 Patient encounter procedure Wilmer Driver APRN.STRATEGIC SOURCING CONSULTANT Work Phone: [facility] Start: 08-19-2022 Telephone encounter Lynne shaw MD Work Phone: Rheumatology Comment on above: Results Start: 08-15-2022 ambulatory Lynne Ni MD Work Phone: Rheumatology Comment on above: update Start: 08-10-2022 Refill Christie Hays Work Phone: [facility] Comment on above: Refill Request Start: 07-27-2022 End: 07-27-2022 ambulatory Timmy Heck APRN.STRATEGIC SOURCING CONSULTANT Work Phone: Neurology Comment on above: JOSE RAFAEL (obstructive sle ep apnea) (Primary Dx) Start: 07-27-2022 End: 07-27-2022 Telemedicine consultation with patient Timmy Heck APRN.STRATEGIC SOURCING CONSULTANT Work Phone: [facility] Start: 07-24-2022 ambulatory Lynne Ni MD Work Phone: Rheumatology Comment on above: Blood work Start: 07-24-2022 Telephone encounter Jose hooker MD Work Phone: Hematology/Oncology Comment on above: Orders (Lab Orders E xpire Before Appointment) Start: 07-21-2022 ambulatory Lawanda Miranda MD Work Phone: [facility] Start: 07-21-2022 Patient encounter procedure Lawanda Miranda MD Work Phone: Neurology Comment on above: Appointment Start: 05-20-2022 End: 05-20-2022 Nursing evaluation of patient and report Hoda Marshall Work Phone: Hematology/Oncology Comment on above: [...] Scheduling questions/concerns) Start: 04-22-2022 Telephone encounter Eliza herrerajanae Research Coordinator [employer] Comment on above: [...] caregiver Christie Phan MD Work Phone: [facility] Start: 03-18-2022 End: 03-18-2022 Patient encounter procedure Jose Najera MD Work Phone: [facility] Start: 03-12-2022 End: 03-13-[address] MADELAINE FERRIS . Facility:[facility] Start: 03-10-2022 End: 03-10-2022 ambulatory Alhaji Head DO Work Phone: Infectious Disease Comment on above: results Raised level of immu noglobulins (Primary Dx); Wound healing, delayed; Current smoker Start: 03-10-2022 E-mail encounter hansa m caregiver Alhaji Head DO Work Phone: [facility] Start: 03-10-2022 End: 03-10-2022 Telemedicine consultation with patient Misty Nelson MD Work Phone: [place] Start: 03-09-2022 End: 03-10-2022 ambulatory GAY ENCISO [...] level of immunoglobulins Start: 03-06-2022 Telephone encounter Alhaji Garcia DO Work Phone: Infectious Disease Comment [...] In Error Start: 02-24-2022 End: 02-24-2022 ambulatory Alhaji Head DO Work Phone: Infectious Disease Comment on above: Swelling of lymph no dot (Primary Dx); Other systemic lupus erythematosus with other organ involvement (HCC); On prednisone therapy; Hair loss; Bilateral sacroiliitis (HCC); Long-term use of Plaquenil Start: 02-24-2022 End: 02-24-2022 Telemedicine consultation with patient Alhaji Head DO Work Phone: [facility] Start: 02-14-2022 End: 02-15-[address] MADELAINE FERRIS . Facility:[facility] Start: 11-26-2021 End: 11-26-2021 ambulatory Mirela Kelsey Other [employer] Other Start: 11-26-2021 Office outpatient vi sit [...] 10-15-2021 End: 10-15-2021 ambulatory Mirela Kelsey Other [employer] Other Start: 10-15-2021 Office outpatient vi sit 25 minutes Mirela Kelsey [facility] Start: 10-03-2021 End: [address] MIRELA KELSEY Facility:[facility] Start: 09-18-2021 End: 09-18-2021 ambulatory Mirela Kelsey Other [employer] Other Start: 09-18-2021 Telephone encounter Mirela Kelsey [facility] Disease Start: 09-11-2021 End: 09-11-2021 ambulatory Mirela Kelsey Other [employer] Other Start: 09-11-2021 Office outpatient ne w 45 minutes Mirela Kelsey [facility] Start: 10-07-2020 End: 10-08-2020 ambulatory JAREN HOLLEY [facility] Start: 10-07-2020 End: 10-07-2020 Subsequent hospital visit by physician [facility] Farmer Jameson Melendez [facility] Trout Farmer Comment on above: Arrived Start: 09-14-2018 End: 09-17-2018 Patient encounter procedure [facility] Procedures Date Procedure Procedure Detail Performing Clinician Start: 02-16-2024 Injection of local anesthetic into sacroiliac joint CATCH BASIN CLEANER-C Gay Enciso Work Phone: Start: 07-13-2023 ECG 12-LEAD MICHELLE NAGE L Start: 07-13-2023 Ecg routine ecg w/le ast 12 lds w/i&r Lois Holm MD Work Phone: Start: 06-09-2023 ECG 12-LEAD MICHELLE NAGE L Start: 06-09-2023 Ecg routine ecg w/le ast 12 lds w/i&r Michelle Britton PREPARATION SUPERVISOR FREEZING-STRATEGIC SOURCING CONSULTANT Work Phone: Start: 10-07-2020 End: 10-07-2020 Cardiac [...] Start: 03-17-2025 Diabetes mellitus screening Diabetes Screening [facility] Start: 07-13-2024 End: 07-13-2024 Patient encounter procedure 07/13/2024 9:20 AM EST Office Visit [facility] [address] [place] [address] Lois Holm MD [address] [facility] [address] [place] [address] [facility] Start: 03-28-2024 End: 03-28-2024 ambulatory 03/28/2024 1:00 PM EST [facility] Hematology/Oncology [address] [place] [address] Jose Najera MD [address] [place] [address] 13 wk virtual after labs last week Hematology/Oncology Comment on above: 13 wk virtual after labs last week Start: 03-21-2024 End: 03-21-2024 Nursing evaluation of patient and report 03/21/2024 11:45 AM EDT Nurse Visit Hematology/Oncology [address] [place] [address] Hoda Marshall Nurse Dre [address] [place] [address] b12 Hematology/Oncology Comment on above: b12 Start: 03-21-2024 End: 03-21-2024 Patient encounter procedure 03/21/2024 11:15 AM EDT Office Visit [facility] [address] [place] [address] [place] [address] LAb [facility] Comment on above: LAb Start: 03-20-2024 End: 12-29-2024 25-hydroxyvitamin D3 [Mass/volume] in Serum or Plasma VITAMIN D 25 HYDROXY Lab Routine Vitamin D deficiency Expected: 03/20/2024 (Approximate), Expires: 12/29/2024 [facility] Comment on above: Expected: 03/20/2024 (Approximate), Expi res: 12/29/2024 Start: 03-20-2024 End: 12-29-2024 BLOOD TB SCREEN BLOOD TB SCREEN Lab Routine Screening-pulmonary TB Expected: 03/20/2024 (Approximate), Expires: 12/29/2024 [facility] Comment on above: Expected: 03/20/2024 (Approximate), Expi res: 12/29/2024 Start: 03-20-2024 End: 12-29-2024 C reactive protein [Mass/volume] in Serum or Plasma C-REACTIVE PROTEIN Lab Routine Elevated C-reactive protein (CRP) Elevated sed rate Expected: 03/20/2024 (Approximate), Expires: 12/29/2024 [facility] Comment on above: Expected: 03/20/2024 (Approximate), Expi res: 12/29/2024 Start: 03-20-2024 End: 06-19-2024 CBC W Auto Differential panel - Blood COMPLETE BLOOD COUNT AND DIFFERENTIAL Lab Routine Megaloblastic anemia due to vitamin B12 deficiency Elevated sed rate Obstructive sleep apnea syndrome Expected: 03/20/2024 (Approximate), Expires: 06/19/2024 [facility] Comment on above: Expected: 03/20/2024 (Approximate), Expi res: 06/19/2024 Start: 03-20-2024 End: 06-19-2024 Cobalamin (Vitamin B12) [Mass/volume] in Serum or Plasma VITAMIN B12 Lab Routine Megaloblastic anemia due to vitamin B12 deficiency Elevated sed rate Obstructive sleep apnea syndrome Expected: 03/20/2024 (Approximate), Expires: 06/19/2024 [facility] Comment on above: Expected: 03/20/2024 (Approximate), Expi res: 06/19/2024 Start: 03-20-2024 End: 06-19-2024 Comprehensive metabolic 2000 panel - Serum or Plasma COMPREHENSIVE METABOLIC PANEL Lab Routine Megaloblastic anemia due to vitamin B12 deficiency Elevated sed rate Obstructive sleep apnea syndrome Expected: 03/20/2024 (Approximate), Expires: 06/19/2024 [facility] Work Phone: Comment on above: Expected: 03/20/2024 (Approximate), Expi res: 06/19/2024 Start: 03-20-2024 End: 12-29-2024 Erythrocyte sedimentation rate SEDIMENTATION RATE, WESTERGREN Lab Routine Elevated C-reactive protein (CRP) Elevated sed rate Expected: 03/20/2024 (Approximate), Expires: 12/29/2024 [facility] Work Phone: Comment on above: Expected: 03/20/2024 (Approximate), Expi res: 12/29/2024 Start: 03-20-2024 End: 06-19-2024 Ferritin [Mass/volume] in Serum or Plasma FERRITIN Lab Routine Megaloblastic anemia due to vitamin B12 deficiency Elevated sed rate Obstructive sleep apnea syndrome Expected: 03/20/2024 (Approximate), Expires: 06/19/2024 [facility] Comment on above: Expected: 03/20/2024 (Approximate), Expi res: 06/19/2024 Start: 03-20-2024 End: 06-19-2024 Folate [Mass/volume] in Serum or Plasma FOLATE, SERUM Lab Routine Megaloblastic anemia due to vitamin B12 deficiency Elevated sed rate Obstructive sleep apnea syndrome Expected: 03/20/2024 (Approximate), Expires: 06/19/2024 [facility] Comment on above: Expected: 03/20/2024 (Approximate), Expi res: 06/19/2024 Start: 03-20-2024 End: 06-19-2024 IMMUNOGLOBULINS,IGG,IGA, IGM IMMUNOGLOBULINS,IGG,IGA,I GM Lab Routine Megaloblastic anemia due to vitamin B12 deficiency Elevated sed rate Obstructive sleep apnea syndrome Expected: 03/20/2024 (Approximate), Expires: 06/19/2024 [facility] Comment on above: Expected: 03/20/2024 (Approximate), Expi res: 06/19/2024 Start: 03-20-2024 End: 06-19-2024 Iron and Iron binding capacity panel - Serum or Plasma IRON AND TIBC Lab Routine Megaloblastic anemia due to vitamin B12 deficiency Elevated sed rate Obstructive sleep apnea syndrome Expected: 03/20/2024 (Approximate), Expires: 06/19/2024 [facility] Comment on above: Expected: 03/20/2024 (Approximate), Expi res: 06/19/2024 Start: 03-13-2024 End: 03-13-2024 Specialty Pharmacy [facility] Comment on above: REFILL- Benlysta- PAx 02/04/24- NCA 10/10 24-, ND 02/23-renewal sub 02/13 REFILL- Benlysta- PA x 02/11/25- NCA 09/2024-, Start: 02-22-2024 End: 02-22-2024 Nursing evaluation of patient and report 02/22/2024 11:45 AM EDT Nurse Visit Hematology/Oncology [address] [place] [place] [address] Hoda Marshall Nurse Dre [address] [place] [address] b12 Hematology/Oncology Comment on above: b12 Start: 02-22-2024 End: 02-22-2024 Patient encounter procedure 02/22/2024 11:15 AM EDT Office Visit [facility] [address] [place] [address] LAb [facility] Comment on above: LAb Start: 02-21-2024 End: 02-21-2024 Nursing evaluation of patient and report 02/21/2024 10:45 AM EDT Nurse Visit Hematology/Oncology [address] [place] [address] Hoda Marshall Nurse Dre [address] [facility] [address] b12 Hematology/Oncology Comment on above: b12 Start: 02-21-2024 End: 02-21-2024 Patient encounter procedure 02/21/2024 10:30 AM EDT Office Visit [facility] [address] [place] [place] [address] LAb [facility] Comment on above: LAb Start: 02-16-[address] [facility] Start: 02-14-2024 End: 02-14-2024 Follow-up encounter Neurology Comment on above: Cpap follow up REFILL- Benlysta- PA x 02/04/24- NCA 09/2024-, ND 02/23 Start: 01-27-2024 End: 04-27-2024 Bacteria identified in Blood by Culture BLOOD CULTURE Microbiology Routine Pseudomonas infection Expected: 01/27/2024, Expires: 04/27/2024 [facility] Work Phone: Comment on above: Expected: 01/27/2024, Expires: Start: 01-27-2024 End: 01-27-2024 Follow-up encounter 01/27/2024 10:00 AM EDT [facility] Infectious Disease [address] [facility] [place] [address] [place] [address] [place] [address] follow up Infectious Disease Comment on above: follow up Start: 01-25-2024 End: 01-25-2024 Nursing evaluation of patient and report Hematology/Oncology Comment on above: b12 B12(change date) Start: 01-25-2024 End: 01-25-2024 Patient encounter procedure [facility] Comment on above: LAb NO LAB ORDERS LAb Start: 01-24-2024 Influenza vaccination Influenza Vaccine (#1) [facility] Comment on above: Postponed from 01/22/2023 (Patient Refus ed) Start: 01-23-2024 Covid-19 Vaccine ( season) Covid-19 Vaccine ( season) [facility] Start: 01-23-2024 Covid-19 Vaccine () Covid-19 Vaccine ( season) [facility] Start: 01-23-2024 Influenza vaccination [facility] Start: 01-20-2024 End: 01-20-2024 Specialty Pharmacy [facility] Comment on above: refill - benlysta- NCA - pa exp: 02/04/24- 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 Start: 12-27-2023 End: 12-27-2023 Nursing evaluation of patient and report 12/27/2023 12:00 PM EDT Nurse Visit Hematology/Oncology [address] [place] [address] Hoda Marshall Nurse Dre [address] [place] [address] b12 Hematology/Oncology Comment on above: b12 Start: 12-27-2023 End: 12-27-2023 Follow-up encounter 12/27/2023 11:30 AM EDT Visit (SP) Office Hematology/Oncology [address] [place] [address] Neda Narayanan, PA-C [address] [place] [address] 13 week follow up, labs 1 week before Hematology/Oncology Comment on above: 13 week follow up, labs 1 week before Start: 12-27-2023 End: 12-27-2023 Patient encounter procedure 12/27/2023 11:15 AM EDT Office Visit [facility] [address] [place] [address] LAb [facility] Comment on above: LAb Start: 12-13-2023 End: 12-13-2023 Specialty Pharmacy 12/13/2023 10:00 AM EDT Specialty Pharmacy [facility] [address] [place] [address] [id number] [place] [address] Pharmacist, [facility] [address] [place] [address] [place] [id number] refill - benlysta- NCA - pa exp: 02/04/24- [facility] Comment on above: refill - benlysta- NCA 09/2024-- pa exp: 02/04/24- Start: 12-10-2023 End: 12-10-2023 Follow-up encounter 12/10/2023 10:45 AM EDT Visit (SP) Office Hematology/Oncology [address] [place] [place] [address] Jose Najera MD [address] [place] [address] 13 week follow up, labs 1 week before Hematology/Oncology Comment on above: 13 week follow up, labs 1 week before Start: 12-04-2023 End: 09-03-2024 25-hydroxyvitamin D3 [Mass/volume] in Serum or Plasma VITAMIN D 25 HYDROXY Lab Routine Vitamin D deficiency Expected: 12/04/2023 (Approximate), Expires: 09/03/2024 [facility] Work Phone: Comment on above: Expected: 12/04/2023 (Approximate), Expi res: 09/03/2024 Start: 12-04-2023 End: 09-03-2024 C reactive protein [Mass/volume] in Serum or Plasma C-REACTIVE PROTEIN Lab Routine Elevated sed rate Elevated C-reactive protein (CRP) Expected: 12/04/2023 (Approximate), Expires: 09/03/2024 [facility] Work Phone: Comment on above: Expected: 12/04/2023 (Approximate), Expi res: 09/03/2024 Start: 12-04-2023 End: 09-03-2024 CBC panel - Blood by Automated count COMPLETE BLOOD COUNT Lab Routine Anemia of chronic disease Expected: 12/04/2023 (Approximate), Expires: 09/03/2024 [facility] Work Phone: Comment on above: Expected: 12/04/2023 (Approximate), Expi res: 09/03/2024 Start: 12-04-2023 End: 09-03-2024 Comprehensive metabolic 2000 panel - Serum or Plasma COMPREHENSIVE METABOLIC PANEL Lab Routine Elevated LFTs Expected: 12/04/2023 (Approximate), Expires: 09/03/2024 [facility] Work Phone: Comment on above: Expected: 12/04/2023 (Approximate), Expi res: 09/03/2024 Start: 12-04-2023 End: 09-03-2024 Erythrocyte sedimentation rate SEDIMENTATION RATE, WESTERGREN Lab Routine Elevated sed rate Elevated C-reactive protein (CRP) Expected: 12/04/2023 (Approximate), Expires: 09/03/2024 [facility] Work Phone: Comment on above: Expected: 12/04/2023 (Approximate), Expi res: 09/03/2024 Start: 12-03-2023 End: 12-03-2023 Nursing evaluation of patient and report 12/03/2023 11:00 AM EDT Nurse Visit Hematology/Oncology [address] [place] [address] Joanna Ak Nurse Dre [address] [place] [address] b12 Hematology/Oncology Comment on above: b12 Start: 12-03-2023 End: 12-03-2023 Patient encounter procedure 12/03/2023 10:45 AM EDT Office Visit [facility] [address] [place] [place] [address] lab [facility] Comment on above: lab Start: 12-02-2023 End: 09-08-2024 CBC W Auto Differential panel - Blood COMPLETE BLOOD COUNT AND DIFFERENTIAL Lab Routine Megaloblastic anemia due to vitamin B12 deficiency High total serum IgM Expected: 12/02/2023 (Approximate), Expires: 09/08/2024 [facility] Work Phone: Comment on above: Expected: 12/02/2023 (Approximate), Expi res: 09/08/2024 Start: 12-02-2023 End: 09-08-2024 Cobalamin (Vitamin B12) [Mass/volume] in Serum or Plasma VITAMIN B12 Lab Routine Megaloblastic anemia due to vitamin B12 deficiency High total serum IgM Expected: 12/02/2023 (Approximate), Expires: 09/08/2024 [facility] Work Phone: Comment on above: Expected: 12/02/2023 (Approximate), Expi res: 09/08/2024 Start: 12-02-2023 End: 09-08-2024 Comprehensive metabolic 2000 panel - Serum or Plasma COMPREHENSIVE METABOLIC PANEL Lab Routine Megaloblastic anemia due to vitamin B12 deficiency High total serum IgM Expected: 12/02/2023 (Approximate), Expires: 09/08/2024 [facility] Work Phone: Comment on above: Expected: 12/02/2023 (Approximate), Expi res: 09/08/2024 Start: 12-02-2023 End: 03-02-2024 Erythrocyte sedimentation rate SEDIMENTATION RATE, WESTERGREN Lab Routine Megaloblastic anemia due to vitamin B12 deficiency High total serum IgM Expected: 12/02/2023 (Approximate), Expires: 03/02/2024 [facility] Work Phone: Comment on above: Expected: 12/02/2023 (Approximate), Expi res: 03/02/2024 Start: 12-02-2023 End: 09-08-2024 Ferritin [Mass/volume] in Serum or Plasma FERRITIN Lab Routine Megaloblastic anemia due to vitamin B12 deficiency High total serum IgM Expected: 12/02/2023 (Approximate), Expires: 09/08/2024 [facility] Work Phone: Comment on above: Expected: 12/02/2023 (Approximate), Expi res: 09/08/2024 Start: 12-02-2023 End: 09-08-2024 Folate [Mass/volume] in Serum or Plasma FOLATE, SERUM Lab Routine Megaloblastic anemia due to vitamin B12 deficiency High total serum IgM Expected: 12/02/2023 (Approximate), Expires: 09/08/2024 [facility] Work Phone: Comment on above: Expected: 12/02/2023 (Approximate), Expi res: 09/08/2024 Start: 12-02-2023 End: 03-02-2024 IgA [Mass/volume] in Serum or Plasma IMMUNOGLOBULIN A Lab Routine Megaloblastic anemia due to vitamin B12 deficiency High total serum IgM Expected: 12/02/2023 (Approximate), Expires: 03/02/2024 [facility] Work Phone: Comment on above: Expected: 12/02/2023 (Approximate), Expi res: 03/02/2024 Start: 12-02-2023 End: 03-02-2024 IgE [Units/volume] in Serum or Plasma IMMUNOGLOBULIN E Lab Routine Megaloblastic anemia due to vitamin B12 deficiency High total serum IgM Expected: 12/02/2023 (Approximate), Expires: 03/02/2024 [facility] Work Phone: Comment on above: Expected: 12/02/2023 (Approximate), Expi res: 03/02/2024 Start: 12-02-2023 End: 03-02-2024 IgG [Mass/volume] in Serum or Plasma IMMUNOGLOBULIN G Lab Routine Megaloblastic anemia due to vitamin B12 deficiency High total serum IgM Expected: 12/02/2023 (Approximate), Expires: 03/02/2024 [facility] Work Phone: Comment on above: Expected: 12/02/2023 (Approximate), Expi res: 03/02/2024 Start: 12-02-2023 End: 03-02-2024 IgM [Mass/volume] in Serum or Plasma IMMUNOGLOBULIN M Lab Routine Megaloblastic anemia due to vitamin B12 deficiency High total serum IgM Expected: 12/02/2023 (Approximate), Expires: 03/02/2024 [facility] Work Phone: Comment on above: Expected: 12/02/2023 (Approximate), Expi res: 03/02/2024 Start: 12-02-2023 End: 09-08-2024 Iron and Iron binding capacity panel - Serum or Plasma IRON AND TIBC Lab Routine Megaloblastic anemia due to vitamin B12 deficiency High total serum IgM Expected: 12/02/2023 (Approximate), Expires: 09/08/2024 [facility] Work Phone: Comment on above: Expected: 12/02/2023 (Approximate), Expi res: 09/08/2024 Start: 11-29-2023 End: 11-29-2023 Nursing evaluation of patient and report 11/29/2023 2:15 PM EDT Nurse Visit Hematology/Oncology [address] [facility] [address] [facility] [place] [address] Hoda Marshall Nurse Dre [address] [place] [address] b12 Hematology/Oncology Comment on above: b12 Start: 11-15-2023 End: 11-15-2023 Specialty Pharmacy 11/15/2023 10:00 AM EDT Specialty Pharmacy [facility] [address] [place] [id number] [place] [address] Pharmacist, [facility] [address] [place] [address] [place] [address] refill - benlysta- NCA 09/2024-- pa exp: 02/04/24- [facility] Comment on above: refill - benlysta- NCA 09/2024-- pa exp: 02/04/24- Start: 10-29-2023 End: 10-29-2023 Nursing evaluation of patient and report 10/29/2023 11:00 AM EDT Nurse Visit Hematology/Oncology [address] [facility] [place] [address] Hoda Marshall Nurse Dre [address] [place] [place] [address] b12 Hematology/Oncology Comment on above: b12 Start: 10-15-2023 End: 10-15-2023 Specialty Pharmacy 10/15/2023 10:00 AM EDT Specialty Pharmacy [facility] [address] [place] [id number] [place] [address] Pharmacist, [facility] [address] [place] [address] [place] [address] refill - benlysta-urs- pa exp: 02/04/24-l/m 10/11 [facility] Comment on above: refill - benlysta-Thursdays- pa exp: 01/22 08/14-l/m 10/11 Start: 10-12-2023 End: 10-12-2023 Specialty Pharmacy 10/12/2023 10:00 AM EDT Specialty Pharmacy [facility] [address] [place], [place] [id number] Pharmacist, [facility] [address] [place] [address] [place] [address] refill - benlysta-Thursdays- pa exp: 02/04/24- [facility] Comment on above: refill - benlysta-Thursdays- pa exp: 01/22 08/14- Start: 10-05-2023 End: 10-05-2023 Patient encounter procedure 10/05/2023 8:00 AM EDT [facility] [address] [place] [address] Lynne Ni MD [address] [place], [place] [id number] 6 mo f/u for Lupus Rheumatology Comment on above: 6 mo f/u for Lupus Start: 10-01-2023 End: 10-01-2023 Nursing evaluation of patient and report 10/01/2023 11:00 AM EDT Nurse Visit Hematology/Oncology [address] [place] [address] Hoda Marshall Nurse Dre [address] [place] [address] b12 Hematology/Oncology Comment on above: b12 Start: 09-16-2023 End: 09-16-2023 Specialty Pharmacy 09/16/2023 10:00 AM EDT Specialty Pharmacy [facility] [address] [place] [id number] Pharmacist, [facility] [address] [place] [address] [place] [address] refill - benlysta-Thursdays- pa exp: 02/04/24-lvm [facility] Comment on above: refill - benlysta-Thursdays- pa exp: 01/22 08/14-lvm Start: 09-13-2023 End: 09-13-2023 Patient encounter procedure 09/13/2023 9:00 AM EDT Office Visit [facility] [address] [place] [address] Juan Luis Richardson MD [address] [facility] [address] [place] [address], [place] [address] [facility] Start: 07-19-2023 End: 07-19-2023 Patient encounter procedure [facility] Start: 07-15-2023 End: 07-15-2023 Patient encounter procedure 07/15/2023 10:50 AM EST Office Visit [facility] [address] [place] [address] Bernabe English MD [address] [place] [address] [facility] Start: 07-06-2023 End: 07-06-2023 Patient encounter procedure 07/06/2023 2:30 PM EST Office Visit [facility] [address] [facility] [address] [place] [address], [place] [phone] Juan Luis Richardson MD [address] [facility] [address] [place] [address], [place] [address] [facility] [address] Start: 07-06-2023 End: 07-06-2024 Protein electrophoresis, serum Protein electrophoresis, serum Lab Routine Autoimmune disease (CMS/HCC) Autonomic dysfunction Expected: 07/06/2023 (Approximate), Expires: 07/06/2024 [facility] Work Phone: Comment on above: Expected: 07/06/2023 (Approximate), Expi res: 07/06/2024 Start: 07-06-2023 End: 07-06-2024 Protein electrophoresis, urine Protein electrophoresis, urine Lab Routine Autoimmune disease (CMS/HCC) Autonomic dysfunction Expected: 07/06/2023 (Approximate), Expires: 07/06/2024 [facility] Comment on above: Expected: 07/06/2023 (Approximate), Expi res: 07/06/2024 Start: 06-09-2023 End: 06-09-2024 Holter monitor study 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 Routine Irregular heart rate Expected: 06/09/2023 (Approximate), Expires: 06/09/2024 [facility] Work Phone: Comment on above: Expected: 06/09/2023 (Approximate), Expi res: 06/09/2024 Start: 06-09-2023 End: 06-09-2024 Lipid 1996 panel - Serum or Plasma Lipid Panel Lab Routine Primary hypertension Expected: 06/09/2023 (Approximate), Expires: 06/09/2024 [facility] Work Phone: Comment on above: Expected: 06/09/2023 (Approximate), Expi res: 06/09/2024 Start: 06-09-2023 End: 06-09-2024 Thyrotropin [Units/volume] in Serum or Plasma Thyroid Stimulating Hormone Lab Routine Irregular heart rate Expected: 06/09/2023 (Approximate), Expires: 06/09/2024 [facility] Work Phone: Comment on above: Expected: 06/09/2023 (Approximate), Expi res: 06/09/2024 Start: 06-09-2023 End: 06-09-2024 Thyroxine (T4) free [Mass/volume] in Serum or Plasma Thyroxine, Free Lab Routine Irregular heart rate Expected: 06/09/2023 (Approximate), Expires: 06/09/2024 [facility] Work Phone: Comment on above: Expected: 06/09/2023 (Approximate), Expi res: 06/09/2024 Start: 06-09-2023 End: 06-09-2025 Heart Transthoracic Transthoracic Echo (TTE) Complete Echocardiography Routine Irregular heart rate Obstructive sleep apnea syndrome Expected: 06/09/2023 (Approximate), Expires: 06/09/2025 [facility] Work Phone: Comment on above: Expected: 06/09/2023 (Approximate), Expi res: 06/09/2025 Start: 04-25-2023 End: 01-25-2024 25-hydroxyvitamin D3 [Mass/volume] in Serum or Plasma VITAMIN D 25 HYDROXY Lab Routine Vitamin D deficiency Expected: 04/25/2023 (Approximate), Expires: 01/25/2024 [facility] Work Phone: Comment on above: Expected: 04/25/2023 (Approximate), Expi res: 01/25/2024 Start: 04-25-2023 End: 01-25-2024 C reactive protein [Mass/volume] in Serum or Plasma C-REACTIVE PROTEIN (CRP) Lab Routine Elevated sed rate Elevated C-reactive protein (CRP) Expected: 04/25/2023 (Approximate), Expires: 01/25/2024 [facility] Work Phone: Comment on above: Expected: 04/25/2023 (Approximate), Expi res: 01/25/2024 Start: 04-25-2023 End: 01-25-2024 CBC panel - Blood by Automated count CBC Lab Routine Anemia of chronic disease Expected: 04/25/2023 (Approximate), Expires: 01/25/2024 [facility] Work Phone: Comment on above: Expected: 04/25/2023 (Approximate), Expi res: 01/25/2024 Start: 04-25-2023 End: 01-25-2024 Comprehensive metabolic 2000 panel - Serum or Plasma COMP METABOLIC PANEL Lab Routine Elevated LFTs Expected: 04/25/2023 (Approximate), Expires: 01/25/2024 [facility] Work Phone: Comment on above: Expected: 04/25/2023 (Approximate), Expi res: 01/25/2024 Start: 04-25-2023 End: 01-25-2024 Erythrocyte sedimentation rate SED RATE WESTERGREN Lab Routine Elevated sed rate Elevated C-reactive protein (CRP) Expected: 04/25/2023 (Approximate), Expires: 01/25/2024 [facility] Work Phone: Comment on above: Expected: 04/25/2023 (Approximate), Expi res: 01/25/2024 Start: 04-20-2023 COVID-19 Vaccine (4 - Pfizer risk series) COVID-19 Vaccine (4 - Pfizer risk series) [facility] Start: 04-20-2023 Covid-19 Vaccine ( season) Covid-19 Vaccine () [facility] Start: 04-20-2023 Covid-19 Vaccine () Covid-19 Vaccine () [facility] Start: 04-16-2023 End: 02-20-2024 CBC W Auto Differential panel - Blood CBC + DIFF Lab Routine Megaloblastic anemia due to vitamin B12 deficiency Elevated sed rate Chronic fatigue and malaise High total serum IgM JOSE RAFAEL (obstructive sleep apnea) Expected: 04/16/2023 (Approximate), Expires: 02/20/2024 [facility] Work Phone: Comment on above: Expected: 04/16/2023 (Approximate), Expi res: 02/20/2024 Start: 04-16-2023 End: 02-20-2024 Cobalamin (Vitamin B12) [Mass/volume] in Serum or Plasma VITAMIN B12 BLOOD Lab Routine Megaloblastic anemia due to vitamin B12 deficiency Elevated sed rate Chronic fatigue and malaise High total serum IgM JOSE RAFAEL (obstructive sleep apnea) Expected: 04/16/2023 (Approximate), Expires: 02/20/2024 [facility] Work Phone: Comment on above: Expected: 04/16/2023 (Approximate), Expi res: 02/20/2024 Start: 04-16-2023 End: 02-20-2024 Comprehensive metabolic 2000 panel - Serum or Plasma COMP METABOLIC PANEL Lab Routine Megaloblastic anemia due to vitamin B12 deficiency Elevated sed rate Chronic fatigue and malaise High total serum IgM JOSE RAFAEL (obstructive sleep apnea) Expected: 04/16/2023 (Approximate), Expires: 02/20/2024 [facility] Work Phone: Comment on above: Expected: 04/16/2023 (Approximate), Expi res: 02/20/2024 Start: 04-16-2023 End: 02-20-2024 Ferritin [Mass/volume] in Serum or Plasma FERRITIN BLD Lab Routine Megaloblastic anemia due to vitamin B12 deficiency Elevated sed rate Chronic fatigue and malaise High total serum IgM JOSE RAFAEL (obstructive sleep apnea) Expected: 04/16/2023 (Approximate), Expires: 02/20/2024 [facility] Work Phone: Comment on above: Expected: 04/16/2023 (Approximate), Expi res: 02/20/2024 Start: 04-16-2023 End: 02-20-2024 Folate [Mass/volume] in Serum or Plasma FOLATE SERUM Lab Routine Megaloblastic anemia due to vitamin B12 deficiency Elevated sed rate Chronic fatigue and malaise High total serum IgM JOSE RAFAEL (obstructive sleep apnea) Expected: 04/16/2023 (Approximate), Expires: 02/20/2024 [facility] Work Phone: Comment on above: Expected: 04/16/2023 (Approximate), Expi res: 02/20/2024 Start: 04-16-2023 End: 02-20-2024 Iron and Iron binding capacity panel - Serum or Plasma IRON + TIBC Lab Routine Megaloblastic anemia due to vitamin B12 deficiency Elevated sed rate Chronic fatigue and malaise High total serum IgM JOSE RAFAEL (obstructive sleep apnea) Expected: 04/16/2023 (Approximate), Expires: 02/20/2024 [facility] Work Phone: Comment on above: Expected: 04/16/2023 (Approximate), Expi res: 02/20/2024 Start: 03-17-2023 Diabetes mellitus screening Diabetes Screening [facility] Start: 03-10-2023 End: 06-09-2023 Insulin [Units/volume] in Serum or Plasma INSULIN ASSAY BLOOD Lab Routine Insulin resistance, unspecified Expected: 03/10/2023, Expires: 06/09/2023 [facility] Work Phone: Comment on above: Expected: 03/10/2023, Expires: Start: 03-10-2023 End: 06-09-2023 INSULIN ANTIBODY BLD INSULIN ANTIBODY BLD Lab Routine Insulin resistance, unspecified Expected: 03/10/2023, Expires: 06/09/2023 [facility] Work Phone: Comment on above: Expected: 03/10/2023, Expires: Start: 02-11-2023 End: 02-08-2024 [id number] [Mass/volume] in Serum or Plasma B2 MICROGLOBULIN B Lab Routine Megaloblastic anemia due to vitamin B12 deficiency High total serum IgM Elevated sed rate Expected: 02/11/2023 (Approximate), Expires: 02/08/2024 [facility] Work Phone: Comment on above: Expected: 02/11/2023 (Approximate), Expi res: 02/08/2024 Start: 02-11-2023 End: 02-08-2024 Calcium.ionized [Moles/volume] in Blood CALCIUM IONIZED BLOOD Lab Routine Megaloblastic anemia due to vitamin B12 deficiency High total serum IgM Elevated sed rate Expected: 02/11/2023 (Approximate), Expires: 02/08/2024 [facility] Work Phone: Comment on above: Expected: 02/11/2023 (Approximate), Expi res: 02/08/2024 Start: 02-11-2023 End: 02-08-2024 CBC W Auto Differential panel - Blood CBC + DIFF Lab Routine Megaloblastic anemia due to vitamin B12 deficiency High total serum IgM Elevated sed rate Expected: 02/11/2023 (Approximate), Expires: 02/08/2024 [facility] Work Phone: Comment on above: Expected: 02/11/2023 (Approximate), Expi res: 02/08/2024 Start: 02-11-2023 End: 02-08-2024 Cobalamin (Vitamin B12) [Mass/volume] in Serum or Plasma VITAMIN B12 BLOOD Lab Routine Megaloblastic anemia due to vitamin B12 deficiency High total serum IgM Elevated sed rate Expected: 02/11/2023 (Approximate), Expires: 02/08/2024 [facility] Work Phone: Comment on above: Expected: 02/11/2023 (Approximate), Expi res: 02/08/2024 Start: 02-11-2023 End: 02-08-2024 Comprehensive metabolic 2000 panel - Serum or Plasma COMP METABOLIC PANEL Lab Routine Megaloblastic anemia due to vitamin B12 deficiency High total serum IgM Elevated sed rate Expected: 02/11/2023 (Approximate), Expires: 02/08/2024 [facility] Work Phone: Comment on above: Expected: 02/11/2023 (Approximate), Expi res: 02/08/2024 Start: 02-11-2023 End: 02-08-2024 Ferritin [Mass/volume] in Serum or Plasma FERRITIN BLD Lab Routine Megaloblastic anemia due to vitamin B12 deficiency High total serum IgM Elevated sed rate Expected: 02/11/2023 (Approximate), Expires: 02/08/2024 [facility] Work Phone: Comment on above: Expected: 02/11/2023 (Approximate), Expi res: 02/08/2024 Start: 02-11-2023 End: 02-08-2024 Folate [Mass/volume] in Serum or Plasma FOLATE SERUM Lab Routine Megaloblastic anemia due to vitamin B12 deficiency High total serum IgM Elevated sed rate Expected: 02/11/2023 (Approximate), Expires: 02/08/2024 [facility] Work Phone: Comment on above: Expected: 02/11/2023 (Approximate), Expi res: 02/08/2024 Start: 02-11-2023 End: 02-08-2024 Iron and Iron binding capacity panel - Serum or Plasma IRON + TIBC Lab Routine Megaloblastic anemia due to vitamin B12 deficiency High total serum IgM Elevated sed rate Expected: 02/11/2023 (Approximate), Expires: 02/08/2024 [facility] Work Phone: Comment on above: Expected: 02/11/2023 (Approximate), Expi res: 02/08/2024 Start: 02-11-2023 End: 04-13-2023 KAPPA/FARMER,FREE,SER KAPPA/FARMER,FREE,SER Lab Routine Megaloblastic anemia due to vitamin B12 deficiency High total serum IgM Elevated sed rate Expected: 02/11/2023 (Approximate), Expires: 04/13/2023 [facility] Work Phone: Comment on above: Expected: 02/11/2023 (Approximate), Expi res: 04/13/2023 Start: 02-11-2023 End: 02-08-2024 Lactate dehydrogenase [Enzymatic activity/volume] in Serum or Plasma LD LACTATE DEHYDRO Lab Routine Megaloblastic anemia due to vitamin B12 deficiency High total serum IgM Elevated sed rate Expected: 02/11/2023 (Approximate), Expires: 02/08/2024 [facility] Work Phone: Comment on above: Expected: 02/11/2023 (Approximate), Expi res: 02/08/2024 Start: 02-11-2023 End: 02-08-2024 MONOCLONAL PROTEIN, SERUM (BLOOD) MONOCLONAL PROTEIN, SERUM (BLOOD) Lab Routine Megaloblastic anemia due to vitamin B12 deficiency High total serum IgM Elevated sed rate Expected: 02/11/2023 (Approximate), Expires: 02/08/2024 [facility] Work Phone: Comment on above: Expected: 02/11/2023 (Approximate), Expi res: 02/08/2024 Start: 02-11-2023 End: 02-08-2024 Phosphate [Mass/volume] in Serum or Plasma PHOSPHORUS INORGANIC Lab Routine Megaloblastic anemia due to vitamin B12 deficiency High total serum IgM Elevated sed rate Expected: 02/11/2023 (Approximate), Expires: 02/08/2024 [facility] Work Phone: Comment on above: Expected: 02/11/2023 (Approximate), Expi res: 02/08/2024 Start: 02-11-2023 End: 02-08-2024 PROTEIN ELECTROPHORESIS SERUM W/INTERP PROTEIN ELECTROPHORESIS SERUM W/INTERP Lab Routine Megaloblastic anemia due to vitamin B12 deficiency High total serum IgM Elevated sed rate Expected: 02/11/2023 (Approximate), Expires: 02/08/2024 [facility] Work Phone: Comment on above: Expected: 02/11/2023 (Approximate), Expi res: 02/08/2024 Start: 02-11-2023 End: 02-08-2024 Urate [Mass/volume] in Serum or Plasma URIC ACID BLOOD Lab Routine Megaloblastic anemia due to vitamin B12 deficiency High total serum IgM Elevated sed rate Expected: 02/11/2023 (Approximate), Expires: 02/08/2024 [facility] Work Phone: Comment on above: Expected: 02/11/2023 (Approximate), Expi res: 02/08/2024 Start: 01-22-2023 Influenza vaccination [facility] Start: 12-17-2022 End: 10-23-2023 CBC W Auto Differential panel - Blood CBC + DIFF Lab Routine Megaloblastic anemia due to vitamin B12 deficiency Expected: 12/17/2022 (Approximate), Expires: 10/23/2023 [facility] Work Phone: Comment on above: Expected: 12/17/2022 (Approximate), Expi res: 10/23/2023 Start: 12-17-2022 End: 10-23-2023 Cobalamin (Vitamin B12) [Mass/volume] in Serum or Plasma VITAMIN B12 BLOOD Lab Routine Megaloblastic anemia due to vitamin B12 deficiency Expected: 12/17/2022 (Approximate), Expires: 10/23/2023 [facility] Work Phone: Comment on above: Expected: 12/17/2022 (Approximate), Expi res: 10/23/2023 Start: 12-17-2022 End: 10-23-2023 Comprehensive metabolic 2000 panel - Serum or Plasma COMP METABOLIC PANEL Lab Routine Megaloblastic anemia due to vitamin B12 deficiency Expected: 12/17/2022 (Approximate), Expires: 10/23/2023 [facility] Work Phone: Comment on above: Expected: 12/17/2022 (Approximate), Expi res: 10/23/2023 Start: 12-17-2022 End: 10-23-2023 Ferritin [Mass/volume] in Serum or Plasma FERRITIN BLD Lab Routine Megaloblastic anemia due to vitamin B12 deficiency Expected: 12/17/2022 (Approximate), Expires: 10/23/2023 [facility] Work Phone: Comment on above: Expected: 12/17/2022 (Approximate), Expi res: 10/23/2023 Start: 12-17-2022 End: 10-23-2023 Folate [Mass/volume] in Serum or Plasma FOLATE SERUM Lab Routine Megaloblastic anemia due to vitamin B12 deficiency Expected: 12/17/2022 (Approximate), Expires: 10/23/2023 [facility] Work Phone: Comment on above: Expected: 12/17/2022 (Approximate), Expi res: 10/23/2023 Start: 12-17-2022 End: 10-23-2023 Iron and Iron binding capacity panel - Serum or Plasma IRON + TIBC Lab Routine Megaloblastic anemia due to vitamin B12 deficiency Expected: 12/17/2022 (Approximate), Expires: 10/23/2023 [facility] Work Phone: Comment on above: Expected: 12/17/2022 (Approximate), Expi res: 10/23/2023 Start: 10-23-2022 End: 12-23-2022 25-hydroxyvitamin D3 [Mass/volume] in Serum or Plasma VITAMIN D 25 HYDROXY Lab Routine Megaloblastic anemia due to vitamin B12 deficiency Elevated sed rate High total serum IgM Chronic fatigue and malaise JOSE RAFAEL (obstructive sleep apnea) Expected: 10/23/2022, Expires: 12/23/2022 [facility] Work Phone: Comment on above: Expected: 10/23/2022, Expires: Start: 10-23-2022 End: 12-23-2022 C reactive protein [Mass/volume] in Serum or Plasma C-REACTIVE PROTEIN (CRP) Lab Routine Megaloblastic anemia due to vitamin B12 deficiency Elevated sed rate High total serum IgM Chronic fatigue and malaise JOSE RAFAEL (obstructive sleep apnea) Expected: 10/23/2022, Expires: 12/23/2022 [facility] Work Phone: Comment on above: Expected: 10/23/2022, Expires: 3 Start: 10-23-2022 End: 12-23-2022 CBC W Auto Differential panel - Blood CBC + DIFF Lab Routine Megaloblastic anemia due to vitamin B12 deficiency Elevated sed rate High total serum IgM Chronic fatigue and malaise JOSE RAFAEL (obstructive sleep apnea) Expected: 10/23/2022, Expires: 12/23/2022 [facility] Work Phone: Comment on above: Expected: 10/23/2022, Expires: 3 Start: 10-23-2022 End: 12-23-2022 Cobalamin (Vitamin B12) [Mass/volume] in Serum or Plasma VITAMIN B12 BLOOD Lab Routine Megaloblastic anemia due to vitamin B12 deficiency Elevated sed rate High total serum IgM Chronic fatigue and malaise JOSE RAFAEL (obstructive sleep apnea) Expected: 10/23/2022, Expires: 12/23/2022 [facility] Work Phone: Comment on above: Expected: 10/23/2022, Expires: 3 Start: 10-23-2022 End: 12-23-2022 Comprehensive metabolic 2000 panel - Serum or Plasma COMP METABOLIC PANEL Lab Routine Megaloblastic anemia due to vitamin B12 deficiency Elevated sed rate High total serum IgM Chronic fatigue and malaise JOSE RAFAEL (obstructive sleep apnea) Expected: 10/23/2022, Expires: 12/23/2022 [facility] Work Phone: Comment on above: Expected: 10/23/2022, Expires: Start: 10-23-2022 End: 12-23-2022 Erythrocyte sedimentation rate SED RATE WESTERGREN Lab Routine Megaloblastic anemia due to vitamin B12 deficiency Elevated sed rate High total serum IgM Chronic fatigue and malaise JOSE RAFAEL (obstructive sleep apnea) Expected: 10/23/2022, Expires: 12/23/2022 [facility] Work Phone: Comment on above: Expected: 10/23/2022, Expires: Start: 10-23-2022 End: 12-23-2022 Lactate dehydrogenase [Enzymatic activity/volume] in Serum or Plasma LD LACTATE DEHYDRO Lab Routine Megaloblastic anemia due to vitamin B12 deficiency Elevated sed rate High total serum IgM Chronic fatigue and malaise JOSE RAFAEL (obstructive sleep apnea) Expected: 10/23/2022, Expires: 12/23/2022 [facility] Work Phone: Comment on above: Expected: 10/23/2022, Expires: Start: 10-23-2022 End: 12-23-2022 MONOCLONAL PROTEIN, SERUM (BLOOD) MONOCLONAL PROTEIN, SERUM (BLOOD) Lab Routine Megaloblastic anemia due to vitamin B12 deficiency Elevated sed rate High total serum IgM Chronic fatigue and malaise JOSE RAFAEL (obstructive sleep apnea) Expected: 10/23/2022, Expires: 12/23/2022 [facility] Work Phone: Comment on above: Expected: 10/23/2022, Expires: Start: 10-23-2022 End: 12-23-2022 PROT ELECT SERUM WITH DANA AND INTERP PROT ELECT SERUM WITH DANA AND INTERP Lab Routine Megaloblastic anemia due to vitamin B12 deficiency Elevated sed rate High total serum IgM Chronic fatigue and malaise JOSE RAFAEL (obstructive sleep apnea) Expected: 10/23/2022, Expires: 12/23/2022 [facility] Work Phone: Comment on above: Expected: 10/23/2022, Expires: Start: 09-19-2022 End: 08-20-2023 CBC panel - Blood by Automated count CBC Lab Routine Anemia of chronic disease Expected: 09/19/2022 (Approximate), Expires: 08/20/2023 [facility] Work Phone: Comment on above: Expected: 09/19/2022 (Approximate), Expi res: 08/20/2023 Start: 09-19-2022 End: 08-20-2023 Comprehensive metabolic 2000 panel - Serum or Plasma COMP METABOLIC PANEL Lab Routine Elevated LFTs Expected: 09/19/2022 (Approximate), Expires: 08/20/2023 [facility] Work Phone: Comment on above: Expected: 09/19/2022 (Approximate), Expi res: 08/20/2023 Start: 09-19-2022 End: 11-19-2022 TPMT PHENOTYPE/ENZYME ACTIVITY TPMT PHENOTYPE/ENZYME ACTIVITY Lab Routine 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 Expected: 09/19/2022 (Approximate), Expires: 11/19/2022 [facility] Work Phone: Comment on above: Expected: 09/19/2022 (Approximate), Expi res: 11/19/2022 Start: 08-28-2022 End: 10-28-2022 25-hydroxyvitamin D3 [Mass/volume] in Serum or Plasma VITAMIN D 25 HYDROXY Lab Routine Megaloblastic anemia due to vitamin B12 deficiency Elevated sed rate High total serum IgM Chronic fatigue and malaise Expected: 08/28/2022 (Approximate), Expires: 10/28/2022 [facility] Work Phone: Comment on above: Expected: 08/28/2022 (Approximate), Expi res: 10/28/2022 Start: 08-28-2022 End: 07-26-2023 [id number] [Mass/volume] in Serum or Plasma B2 MICROGLOBULIN B Lab Routine Megaloblastic anemia due to vitamin B12 deficiency Elevated sed rate High total serum IgM Chronic fatigue and malaise Expected: 08/28/2022 (Approximate), Expires: 07/26/2023 [facility] Work Phone: Comment on above: Expected: 08/28/2022 (Approximate), Expi res: 07/26/2023 Start: 08-28-2022 End: 10-28-2022 C reactive protein [Mass/volume] in Serum or Plasma C-REACTIVE PROTEIN (CRP) Lab Routine Megaloblastic anemia due to vitamin B12 deficiency Elevated sed rate High total serum IgM Chronic fatigue and malaise Expected: 08/28/2022 (Approximate), Expires: 10/28/2022 [facility] Work Phone: Comment on above: Expected: 08/28/2022 (Approximate), Expi res: 10/28/2022 Start: 08-28-2022 End: 07-26-2023 Calcium.ionized [Moles/volume] in Blood CALCIUM IONIZED BLOOD Lab Routine Megaloblastic anemia due to vitamin B12 deficiency Elevated sed rate High total serum IgM Chronic fatigue and malaise Expected: 08/28/2022 (Approximate), Expires: 07/26/2023 [facility] Work Phone: Comment on above: Expected: 08/28/2022 (Approximate), Expi res: 07/26/2023 Start: 08-28-2022 End: 07-26-2023 CBC W Auto Differential panel - Blood CBC + DIFF Lab Routine Megaloblastic anemia due to vitamin B12 deficiency Elevated sed rate High total serum IgM Chronic fatigue and malaise Expected: 08/28/2022 (Approximate), Expires: 07/26/2023 [facility] Work Phone: Comment on above: Expected: 08/28/2022 (Approximate), Expi res: 07/26/2023 Start: 08-28-2022 End: 10-28-2022 Cobalamin (Vitamin B12) [Mass/volume] in Serum or Plasma VITAMIN B12 BLOOD Lab Routine Megaloblastic anemia due to vitamin B12 deficiency Elevated sed rate High total serum IgM Chronic fatigue and malaise Expected: 08/28/2022 (Approximate), Expires: 10/28/2022 [facility] Work Phone: Comment on above: Expected: 08/28/2022 (Approximate), Expi res: 10/28/2022 Start: 08-28-2022 End: 07-26-2023 Comprehensive metabolic 2000 panel - Serum or Plasma COMP METABOLIC PANEL Lab Routine Megaloblastic anemia due to vitamin B12 deficiency Elevated sed rate High total serum IgM Chronic fatigue and malaise Expected: 08/28/2022 (Approximate), Expires: 07/26/2023 [facility] Work Phone: Comment on above: Expected: 08/28/2022 (Approximate), Expi res: 07/26/2023 Start: 08-28-2022 End: 10-28-2022 Erythrocyte sedimentation rate SED RATE WESTERGREN Lab Routine Megaloblastic anemia due to vitamin B12 deficiency Elevated sed rate High total serum IgM Chronic fatigue and malaise Expected: 08/28/2022 (Approximate), Expires: 10/28/2022 [facility] Work Phone: Comment on above: Expected: 08/28/2022 (Approximate), Expi res: 10/28/2022 Start: 08-28-2022 End: 10-28-2022 KAPPA/FARMER,FREE,SER KAPPA/FARMER,FREE,SER Lab Routine Megaloblastic anemia due to vitamin B12 deficiency Elevated sed rate High total serum IgM Chronic fatigue and malaise Expected: 08/28/2022 (Approximate), Expires: 10/28/2022 [facility] Work Phone: Comment on above: Expected: 08/28/2022 (Approximate), Expi res: 10/28/2022 Start: 08-28-2022 End: 07-26-2023 Lactate dehydrogenase [Enzymatic activity/volume] in Serum or Plasma LD LACTATE DEHYDRO Lab Routine Megaloblastic anemia due to vitamin B12 deficiency Elevated sed rate High total serum IgM Chronic fatigue and malaise Expected: 08/28/2022 (Approximate), Expires: 07/26/2023 [facility] Work Phone: Comment on above: Expected: 08/28/2022 (Approximate), Expi res: 07/26/2023 Start: 08-28-2022 End: 07-26-2023 MONOCLONAL PROTEIN, SERUM (BLOOD) MONOCLONAL PROTEIN, SERUM (BLOOD) Lab Routine Megaloblastic anemia due to vitamin B12 deficiency Elevated sed rate High total serum IgM Chronic fatigue and malaise Expected: 08/28/2022 (Approximate), Expires: 07/26/2023 [facility] Work Phone: Comment on above: Expected: 08/28/2022 (Approximate), Expi res: 07/26/2023 Start: 08-28-2022 End: 07-26-2023 Phosphate [Mass/volume] in Serum or Plasma PHOSPHORUS INORGANIC Lab Routine Megaloblastic anemia due to vitamin B12 deficiency Elevated sed rate High total serum IgM Chronic fatigue and malaise Expected: 08/28/2022 (Approximate), Expires: 07/26/2023 [facility] Work Phone: Comment on above: Expected: 08/28/2022 (Approximate), Expi res: 07/26/2023 Start: 08-28-2022 End: 07-26-2023 PROTEIN ELECTROPHORESIS SERUM W/INTERP PROTEIN ELECTROPHORESIS SERUM W/INTERP Lab Routine Megaloblastic anemia due to vitamin B12 deficiency Elevated sed rate High total serum IgM Chronic fatigue and malaise Expected: 08/28/2022 (Approximate), Expires: 07/26/2023 [facility] Work Phone: Comment on above: Expected: 08/28/2022 (Approximate), Expi res: 07/26/2023 Start: 08-28-2022 End: 07-26-2023 Urate [Mass/volume] in Serum or Plasma URIC ACID BLOOD Lab Routine Megaloblastic anemia due to vitamin B12 deficiency Elevated sed rate High total serum IgM Chronic fatigue and malaise Expected: 08/28/2022 (Approximate), Expires: 07/26/2023 [facility] Work Phone: Comment on above: Expected: 08/28/2022 (Approximate), Expi res: 07/26/2023 Start: 07-15-2022 End: 05-20-2023 [id number] [Mass/volume] in Serum or Plasma B2 MICROGLOBULIN B Lab Routine High total serum IgM Expected: 07/15/2022 (Approximate), Expires: 05/20/2023 [facility] Work Phone: Comment on above: Expected: 07/15/2022 (Approximate), Expi res: 05/20/2023 Start: 07-15-2022 End: 05-20-2023 Calcium.ionized [Moles/volume] in Blood CALCIUM IONIZED BLOOD Lab Routine High total serum IgM Expected: 07/15/2022 (Approximate), Expires: 05/20/2023 [facility] Work Phone: Comment on above: Expected: 07/15/2022 (Approximate), Expi res: 05/20/2023 Start: 07-15-2022 End: 05-20-2023 CBC W Auto Differential panel - Blood CBC + DIFF Lab Routine High total serum IgM Expected: 07/15/2022 (Approximate), Expires: 05/20/2023 [facility] Work Phone: Comment on above: Expected: 07/15/2022 (Approximate), Expi res: 05/20/2023 Start: 07-15-2022 End: 05-20-2023 Comprehensive metabolic 2000 panel - Serum or Plasma COMP METABOLIC PANEL Lab Routine High total serum IgM Expected: 07/15/2022 (Approximate), Expires: 05/20/2023 [facility] Work Phone: Comment on above: Expected: 07/15/2022 (Approximate), Expi res: 05/20/2023 Start: 07-15-2022 End: 09-14-2022 KAPPA/FARMER,FREE,SER KAPPA/FARMER,FREE,SER Lab Routine High total serum IgM Expected: 07/15/2022 (Approximate), Expires: 09/14/2022 [facility] Work Phone: Comment on above: Expected: 07/15/2022 (Approximate), Expi res: 09/14/2022 Start: 07-15-2022 End: 05-20-2023 Lactate dehydrogenase [Enzymatic activity/volume] in Serum or Plasma LD LACTATE DEHYDRO Lab Routine High total serum IgM Expected: 07/15/2022 (Approximate), Expires: 05/20/2023 [facility] Work Phone: Comment on above: Expected: 07/15/2022 (Approximate), Expi res: 05/20/2023 Start: 07-15-2022 End: 05-20-2023 MONOCLONAL PROTEIN, SERUM (BLOOD) MONOCLONAL PROTEIN, SERUM (BLOOD) Lab Routine High total serum IgM Expected: 07/15/2022 (Approximate), Expires: 05/20/2023 [facility] Work Phone: Comment on above: Expected: 07/15/2022 (Approximate), Expi res: 05/20/2023 Start: 07-15-2022 End: 05-20-2023 Phosphate [Mass/volume] in Serum or Plasma PHOSPHORUS INORGANIC Lab Routine High total serum IgM Expected: 07/15/2022 (Approximate), Expires: 05/20/2023 [facility] Work Phone: Comment on above: Expected: 07/15/2022 (Approximate), Expi res: 05/20/2023 Start: 07-15-2022 End: 05-20-2023 PROTEIN ELECTROPHORESIS SERUM W/INTERP PROTEIN ELECTROPHORESIS SERUM W/INTERP Lab Routine High total serum IgM Expected: 07/15/2022 (Approximate), Expires: 05/20/2023 [facility] Work Phone: Comment on above: Expected: 07/15/2022 (Approximate), Expi res: 05/20/2023 Start: 07-15-2022 End: 05-20-2023 Urate [Mass/volume] in Serum or Plasma URIC ACID BLOOD Lab Routine High total serum IgM Expected: 07/15/2022 (Approximate), Expires: 05/20/2023 [facility] Work Phone: Comment on above: Expected: 07/15/2022 (Approximate), Expi res: 05/20/2023 Start: 06-05-2022 End: 03-05-2023 25-hydroxyvitamin D3 [Mass/volume] in Serum or Plasma VITAMIN D 25 HYDROXY Lab Routine Vitamin D deficiency Expected: 06/05/2022 (Approximate), Expires: 03/05/2023 [facility] Work Phone: Comment on above: Expected: 06/05/2022 (Approximate), Expi res: 03/05/2023 Start: 06-05-2022 End: 03-05-2023 C reactive protein [Mass/volume] in Serum or Plasma C-REACTIVE PROTEIN (CRP) Lab Routine Elevated sed rate Elevated C-reactive protein (CRP) Expected: 06/05/2022 (Approximate), Expires: 03/05/2023 [facility] Work Phone: Comment on above: Expected: 06/05/2022 (Approximate), Expi res: 03/05/2023 Start: 06-05-2022 End: 03-05-2023 Cobalamin (Vitamin B12) [Mass/volume] in Serum or Plasma VITAMIN B12 BLOOD Lab Routine Vitamin B12 deficiency Expected: 06/05/2022 (Approximate), Expires: 03/05/2023 [facility] Work Phone: Comment on above: Expected: 06/05/2022 (Approximate), Expi res: 03/05/2023 Start: 06-05-2022 End: 03-05-2023 Erythrocyte sedimentation rate SED RATE WESTERGREN Lab Routine Elevated sed rate Elevated C-reactive protein (CRP) Expected: 06/05/2022 (Approximate), Expires: 03/05/2023 [facility] Work Phone: Comment on above: Expected: 06/05/2022 (Approximate), Expi res: 03/05/2023 Start: 05-06-2022 End: 03-18-2023 [id number] [Mass/volume] in Serum or Plasma B2 MICROGLOBULIN B Lab Routine Megaloblastic anemia due to vitamin B12 deficiency High total serum IgM Expected: 05/06/2022 (Approximate), Expires: 03/18/2023 [facility] Work Phone: Comment on above: Expected: 05/06/2022 (Approximate), Expi res: 03/18/2023 Start: 05-06-2022 End: 03-18-2023 Calcium.ionized [Moles/volume] in Blood CALCIUM IONIZED BLOOD Lab Routine Megaloblastic anemia due to vitamin B12 deficiency High total serum IgM Expected: 05/06/2022 (Approximate), Expires: 03/18/2023 [facility] Work Phone: Comment on above: Expected: 05/06/2022 (Approximate), Expi res: 03/18/2023 Start: 05-06-2022 End: 03-18-2023 CBC W Auto Differential panel - Blood CBC + DIFF Lab Routine Megaloblastic anemia due to vitamin B12 deficiency High total serum IgM Expected: 05/06/2022 (Approximate), Expires: 03/18/2023 [facility] Work Phone: Comment on above: Expected: 05/06/2022 (Approximate), Expi res: 03/18/2023 Start: 05-06-2022 End: 03-18-2023 Comprehensive metabolic 2000 panel - Serum or Plasma COMP METABOLIC PANEL Lab Routine Megaloblastic anemia due to vitamin B12 deficiency High total serum IgM Expected: 05/06/2022 (Approximate), Expires: 03/18/2023 [facility] Work Phone: Comment on above: Expected: 05/06/2022 (Approximate), Expi res: 03/18/2023 Start: 05-06-2022 End: 03-18-2023 Ferritin [Mass/volume] in Serum or Plasma FERRITIN BLD Lab Routine Megaloblastic anemia due to vitamin B12 deficiency High total serum IgM Expected: 05/06/2022 (Approximate), Expires: 03/18/2023 [facility] Work Phone: Comment on above: Expected: 05/06/2022 (Approximate), Expi res: 03/18/2023 Start: 05-06-2022 End: 03-18-2023 Iron and Iron binding capacity panel - Serum or Plasma IRON + TIBC Lab Routine Megaloblastic anemia due to vitamin B12 deficiency High total serum IgM Expected: 05/06/2022 (Approximate), Expires: 03/18/2023 [facility] Work Phone: Comment on above: Expected: 05/06/2022 (Approximate), Expi res: 03/18/2023 Start: 05-06-2022 End: 03-18-2023 Lactate dehydrogenase [Enzymatic activity/volume] in Serum or Plasma LD LACTATE DEHYDRO Lab Routine Megaloblastic anemia due to vitamin B12 deficiency High total serum IgM Expected: 05/06/2022 (Approximate), Expires: 03/18/2023 [facility] Work Phone: Comment on above: Expected: 05/06/2022 (Approximate), Expi res: 03/18/2023 Start: 05-06-2022 End: 03-18-2023 MONOCLONAL PROTEIN, SERUM (BLOOD) MONOCLONAL PROTEIN, SERUM (BLOOD) Lab Routine Megaloblastic anemia due to vitamin B12 deficiency High total serum IgM Expected: 05/06/2022 (Approximate), Expires: 03/18/2023 [facility] Work Phone: Comment on above: Expected: 05/06/2022 (Approximate), Expi res: 03/18/2023 Start: 05-06-2022 End: 03-18-2023 Phosphate [Mass/volume] in Serum or Plasma PHOSPHORUS INORGANIC Lab Routine Megaloblastic anemia due to vitamin B12 deficiency High total serum IgM Expected: 05/06/2022 (Approximate), Expires: 03/18/2023 [facility] Work Phone: Comment on above: Expected: 05/06/2022 (Approximate), Expi res: 03/18/2023 Start: 05-06-2022 End: 03-18-2023 PROTEIN ELECTROPHORESIS SERUM W/INTERP PROTEIN ELECTROPHORESIS SERUM W/INTERP Lab Routine Megaloblastic anemia due to vitamin B12 deficiency High total serum IgM Expected: 05/06/2022 (Approximate), Expires: 03/18/2023 [facility] Work Phone: Comment on above: Expected: 05/06/2022 (Approximate), Expi res: 03/18/2023 Start: 05-06-2022 End: 03-18-2023 Urate [Mass/volume] in Serum or Plasma URIC ACID BLOOD Lab Routine Megaloblastic anemia due to vitamin B12 deficiency High total serum IgM Expected: 05/06/2022 (Approximate), Expires: 03/18/2023 [facility] Work Phone: Comment on above: Expected: 05/06/2022 (Approximate), Expi res: 03/18/2023 Start: 04-05-2022 COVID-19 VACCINE (5 - Pfizer risk series) COVID-19 VACCINE (5 - Pfizer risk series) [facility] Start: 03-09-2022 End: 05-09-2022 Hemoglobin A1c in Blood HGB A1C Lab Routine Elevated glucose Expected: 03/09/2022, Expires: 05/09/2022 [facility] Work Phone: Comment on above: Expected: 03/09/2022, Expires: Start: 02-24-2022 End: 04-26-2022 BARTONELLA AB PANEL BARTONELLA AB PANEL Lab Routine Swelling of lymph nodes Expected: 02/24/2022, Expires: 04/26/2022 [facility] Work Phone: Comment on above: Expected: 02/24/2022, Expires: 2 Start: 02-24-2022 End: 04-26-2022 BRUCELLA AB TOTAL BRUCELLA AB TOTAL Lab Routine Swelling of lymph nodes Expected: 02/24/2022, Expires: 04/26/2022 [facility] Work Phone: Comment on above: Expected: 02/24/2022, Expires: 2 Start: 02-24-2022 End: 04-26-2022 Cryptococcus sp Ag [Presence] in Unspecified specimen by Latex agglutination CRYPTOCOCCUS AG DET Microbiology Routine Swelling of lymph nodes Expected: 02/24/2022, Expires: 04/26/2022 [facility] Work Phone: Comment on above: Expected: 02/24/2022, Expires: 2 Start: 02-24-2022 End: 04-26-2022 HISTOPLASMA AG URINE HISTOPLASMA AG URINE Lab Routine Swelling of lymph nodes Expected: 02/24/2022, Expires: 04/26/2022 [facility] Work Phone: Comment on above: Expected: 02/24/2022, Expires: 2 Start: 02-24-2022 End: 04-26-2022 HIV 1 RNA [#/volume] (viral load) in Serum or Plasma by YESSI with probe detection HIV RNA VIRAL LOAD Lab Routine Swelling of lymph nodes Expected: 02/24/2022, Expires: 04/26/2022 [facility] Work Phone: Comment on above: Expected: 02/24/2022, Expires: 2 Start: 02-24-2022 End: 04-26-2022 SYPHILIS TOTAL W/REFLEX SYPHILIS TOTAL W/REFLEX Lab Routine Swelling of lymph nodes Expected: 02/24/2022, Expires: 04/26/2022 [facility] Work Phone: Comment on above: Expected: 02/24/2022, Expires: 2 Start: 01-22-2022 Influenza vaccination [facility] Start: 08-24-2021 COVID-19 VACCINE (4 - Booster for Pfizer series) COVID-19 VACCINE (4 - Booster for Pfizer series) [facility] Start: 01-22-2021 Influenza vaccination Flu [facility] ([facility] Ended[facility] Start: 2020 [facility]id [facility] Start: 2020 Mammography [facility] Start: 2020 Screening for malignant neoplasm of breast [facility] Start: 2010 HPV TESTING HPV TESTING [facility] Start: 2010 Screening for malignant neoplasm of cervix [facility] Start: 2002 DTaP/Tdap/Td Vaccines (1 - Tdap) DTaP/Tdap/Td Vaccines (1 - Tdap) [facility] Start: 2001 PAP TESTING PAP TESTING [facility] Start: 2001 Screening for malignant neoplasm of cervix [facility] Start: 10-05-1999 DTaP/Tdap/Td vaccine (1 - Tdap) DTaP/Tdap/Td vaccine (1 - Tdap) [facility] Phone: Start: 10-05-1999 Hepatitis B Vaccine (1 of 3 - 19+ 3-dose series) Hepatitis B Vaccine (1 of 3 - 19+ 3-dose series) [facility] Start: 10-05-1999 SHINGRIX VACCINE (1 of 2) SHINGRIX VACCINE (1 of 2) [facility] Start: 10-05-1999 Urine microalbumin profile [facility] Start: 10-05-1999 Zoster Vaccines (1 of 2) Zoster Vaccines (1 of 2) [facility] Start: 1998 Anxiety Screening Anxiety Screening [facility] Start: 1998 Hepatitis C screening Hepatitis C Screening [facility] Start: 1998 HIV SCREENING HIV SCREENING [facility] Start: 1998 HIV screening HIV Screening [facility] Start: 10-05-1995 HIV screening HIV screen [facility] Phone: Start: 1992 COVID-19 Vaccine (1) COVID-19 Vaccine (1) [employer] Phone: Start: 10-05-1991 Screening for malignant neoplasm of cervix Cervical Cancer Screening [facility] Start: 1986 PNEUMOCOCCAL (1 - PCV) PNEUMOCOCCAL (1 - PCV) [facility] Start: 1986 Pneumococcal vaccination [facility] Start: 1986 Pneumococcal Vaccine: Pediatrics (0 to 5 Years) and At-Risk Patients (6 to 64 Years) (1 - PCV) Pneumococcal Vaccine: Pediatrics (0 to 5 Years) and At-Risk Patients (6 to 64 Years) (1 - PCV) [facility] Start: 1981 MMR Vaccines (1 of 1 - Standard series) MMR Vaccines (1 of 1 - Standard series) [facility] Start: 1981 Varicella vaccination Varicella Vaccines (1 of 2 - 2-dose childhood series) [facility] Start: 1981 Varicella vaccine (1 of 2 - 2-dose childhood series) Varicella vaccine (1 of 2 - 2-dose childhood series) [employer] Phone: Start: 1980 HEPATITIS B (1 of 3 - 3-dose series) HEPATITIS B (1 of 3 - 3-dose series) [facility] Start: 1980 Hepatitis B Vaccine (1 of 3 - 3-dose series) Hepatitis B Vaccine (1 of 3 - 3-dose series) [facility] Start: 1980 Hepatitis B Vaccines (1 of 3 - 3-dose series) Hepatitis B Vaccines (1 of 3 - 3-dose series) [facility] Start: 1980 Hepatitis C screening Hepatitis C screen [employer] Phone: Start: 1980 HIV screening HIV Screening [facility] Start: 1980 Lipid panel Lipid Panel [facility] Start: 1980 Screening for osteoporosis Bone Density Scan [facility] Start: 1980 Yearly Adult Physical Yearly Adult Physical [facility] Cardiovascular funct ion eval w/tilt table w/mntr TILT TABLE EVALUATION Cardiology Routine POTS (postural orthostatic tachycardia syndrome) Ordered: 03/09/2022 [facility] Work Phone: Comment on above: Ordered: 03/09/2022 End: 03-05-2024 DXA-AXIAL SKELETON DXA-AXIAL SKELETON Radiology Routine Steroid-induced osteoporosis 1 Occurrences starting 02/04/2023 until 03/05/2024 [facility] Work Phone: Comment on above: 1 Occurrences starting 02/04/2023 until 03/05/2024 End: 03-05-2024 DXA-FOREARM SKELETON DXA-FOREARM SKELETON Radiology Routine Steroid-induced osteoporosis 1 Occurrences starting 02/04/2023 until 03/05/2024 [facility] Work Phone: Comment on above: 1 Occurrences starting 02/04/2023 until 03/05/2024 ECG 12 Lead ECG 12 Lead ECG Routine Irregular heart rate 06/09/2023 8:28 AM EST [facility] Work Phone: End: 03-09-2023 HOME SLEEP APNEA TEST (HSAT) HOME SLEEP APNEA TEST (HSAT) Procedures Routine Somnolence, daytime Snoring 1 Occurrences starting 03/09/2022 until 03/09/2023 [facility] Work Phone: Comment on above: 1 Occurrences starting 03/09/2022 until 03/09/2023 Oxygen therapy [[facility] Data Set] Initiate Oxygen Therapy Protocol Respiratory Care Routine Daily until discontinued starting 10/07/2020 [facility] Work Phone: Comment on above: Daily until discontinued starting 2020 Patient Education Know your Meds Jorge Luis Non Diagnostic Block [facility] Work Phone: Patient referral [facility] Work Phone: End: 03-04-2023 Polysomnogram POLYSOMNOGRAM (PSG) Procedures Routine Somnolence, daytime Snoring 1 Occurrences starting 03/04/2022 until 03/04/2023 [facility] Work Phone: Comment on above: 1 Occurrences starting 03/04/2022 until 03/04/2023 [facility] Immunizations Immunization Date Immunization Notes Care Provider Fa ras 02-23-2023 COVID-19 vaccine, ag e 12+ yr, 2022- season (DeciZium-LibertadCard) Lynne Ni MD Work Phone: [facility] Payers Date Payer Category Payer Self-pay [id number] 2017 Unknown [employer] [facility] [id number] 2017-Present [address] [place] [address] [id number] 2009 Medicaid [employer] [id number] 2009-Present [phone] [address] [place] [address] Medicaid [id number]. [id number] 2009 Medicaid [id number]. [id number] 1980 Unknown [id number] 2.16.840.1.321321.3.579.2.185 1980 Unknown [id number] 2.16.840.1.396781.3.579.2.175 1980 Unknown [id number] 2.16.840.1.702851.3.579.2.593 1980 Unknown [id number] 2.16.840.1.610201.3.579.2.593 1980 Unknown [id number] 2.16.840.1.813105.3.579.2.593 1980 Unknown [id number] 2.16.840.1.537983.3.579.2.593 1980 Unknown [id number] 2.16.840.1.771490.3.579.2.59 1980 Unknown [id number] 2.16.840.1.434533.3.579.2.593 1980 Unknown [id number] 2.16.840.1.224826.3.579.2.593 1980 Unknown [id number] 2.16.840.1.590521.3.579.2.59 1980 Unknown [id number] 2.16.840.1.514227.3.579.2.593 1980 Unknown [id number] 2.16.840.1.430332.3.579.2.593 1980 Unknown [id number] 2.16.840.1.789257.3.579.2.124 1980 Unknown [id number] 2.16.840.1.846649.3.579.2.124 1980 Unknown [id number] 2.16.840.1.058737.3.579.2.124 1980 Unknown [id number] 2.16.840.1.210125.3.579.2.1259 1980 Unknown [id number] 2.16.840.1.968076.3.579.2.1259 1980 Unknown [id number] 2.16.840.1.550404.3.579.2.1258 1980 Unknown [id number] 2.16.840.1.963894.3.579.2.1258 1980 Unknown [id number] 2.16.840.1.568895.3.579.2.1258 1980 Unknown [id number] 2.16.840.1.709448.3.579.2.1258 1980 Unknown [id number] 2.16.840.1.930238.3.579.2.1258 1980 Unknown [id number] 2.16.840.1.098272.3.579.2.1258 1980 Unknown [id number] 2.16.840.1.969723.3.579.2.1258 1980 Unknown [id number] 2.16.840.1.958104.3.579.2.1258 1980 Unknown [id number] 2.16.840.1.820890.3.579.2.1258 1980 Unknown [id number] 2.16.840.1.114003.3.579.2.1258 1980 Unknown [id number] 2.16.840.1.691712.3.579.2.1258 1980 Unknown [id number] 2.16.840.1.993579.3.579.2.1258 1980 Unknown [id number] 2.16.840.1.371701.3.579.2.1258 1959 Unknown [id number] 1959 Unknown [id number] Unknown [id number] 2.16.840.1.425820.3.579.2.531 Social History Date Type Detail Facility Start: 10-07-2020 End: 03-09-2022 Tobacco smoking status NCIS Current every day smoker [facility] Start: 10-07-2020 End: 03-09-2022 Tobacco use and exposure Never used [facility] Start: 10-07-2020 End: 07-13-2023 Alcohol intake Lifetime non-drinker (finding) [employer] Phone: Start: 10-07-2020 History SDOH Alcohol Frequency 1 [employer] Phone: Start: 1980 Sex Assigned At Not on file [employer] Phone: Start: 02-22-2022 End: 07-13-2023 Exposure to SARS-CoV-2 (event) Not sure [facility] History of tobacco use Cigarette Smoker [facility] Start: 05-31-2014 End: 09-24-2022 Cigarettes smoked current (pack per day) - Reported 1 [facility] Start: 10-24-2021 End: 02-14-2024 Alcohol intake Current non-drinker of alcohol (finding) [facility] Start: 10-14-2021 End: 10-24-2021 Exposure to SARS-CoV-2 (event) Unable to assess [facility] Start: 09-24-2022 End: 10-22-2022 Sex Assigned At [facility] Adult Depression Screening Assessment 1 [facility] Start: 10-19-2022 Tobacco Comment Current smoker , everyday, 11-20 cigarettes/day [facility] Start: 05-31-2023 Alcohol Comment Caffeine intak e : > 4 cups per day [facility] Start: 08-19-2016 End: 12-16-2023 Tobacco smoking status NHIS Smoker (finding) [facility] Start: 1980 Sex Assigned At Female F [facility] Goals Date Patient Goal Desired Activity /State Clinical Notes 05-31-2014 to 02-18-2024 Telephone Encounter - Sherrie Jimenes - 02/18/2024 1:26 PM EDTTelephone Encounter - Sherrie Jimenes - 02/18/2024 1:26 PM EDTTelephone Encounter - Hansa Javde LPN - 02/15/2024 9:49 AM EDT Note Date & Type Note Facility 02-18-2024 Telephone encounter Note Patient is calling the [facility] office requesting Dr. Ni to place a referral to genetics. Please advise. [facility] 02-18-2024 Miscellaneous Notes Patient is calling the [facility] office requesting Dr. Ni to place a referral to genetics. Please advise. documented in this encounter [facility] 02-15-2024 Telephone encounter Note PAP ORDER FAXED TO [facility] WITH DEMOGRAPHICS, OFFICE NOTES WITH CONFIRMATON NOTED. [facility] 02-15-2024 Miscellaneous Notes PAP ORDER FAXED TO [facility] WITH DEMOGRAPHICS, OFFICE NOTES WITH CONFIRMATON NOTED. documented in this encounter [facility] 02-14-2024 History of Presen t illness Narrative [facility] [...] laboratory parameters, disease state markers and outcomes. Office/provider notes have been reviewed prior to dispensing the medication. Thread Cutter Tender Assessment Patient confirmed: Yes Med/dose confirmed: Yes Missed doses: No Estimated days supply on hand: 1 Next cycle/dose due: 02/17/24 Copay amount: 0 Payment confirmed: Yes Delivery method: FedEx Signature required: Waived on patient request Delivery address: [address] [place] [address] [place], [place] Delivery date: 02/17/24 Questions or concerns for the pharmacist?: No Did you have any side effects believed to be related to this medication, that resulted in hospitalization?: No Current Outpatient Medications on File Prior to Visit Medication Sig predniSONE (DELTASONE) 10 mg tablet Take 40mg daily x 3, decrease by 5mg every 3days until taking 10mg daily with food thereafter (no oral nsaids) folic acid 1 mg tablet Take 1 tablet by mouth once daily. azaTHIOprine (IMURAN) 50 mg tablet TAKE 3 TABLETS BY MOUTH DAILY WITH FOOD. HOLD IF ON ANTIBIOTICS OR ILL. hydrOXYchloroQUINE (PLAQUENIL) 200 mg tablet TAKE 1 TAB TWICE A DAY WITH FOOD *SUNSCREEN WHILE OUTDOORS/OPHTHAMOLOGY EVERY 6-12 MONTHS WHILE ON* belimumab (BENLYSTA) 200 mg/mL auto-injector Inject 200mg (1 pen) subcutaneously once weekly ergocalciferol 50,000 unit capsule (VITAMIN D2, DRISDOL) Take 1cap by mouth once a week with food. topiramate (TOPAMAX) 25 mg tablet Take 1 tablet by mouth two times a day. pregabalin (LYRICA) 75 mg capsule take 1 capsule by mouth three times a day metoprolol tartrate, short acting, (LOPRESSOR) 50 mg [...] facility-administered medications on file prior to visit. [facility] SPECIAL[facility] CLINICAL ASSESSMENT - INFLAMMATORY CONDITIONS V6: Assessment to use: Refill Date of influenza vaccination reminder: 03/04/2023 Date of most recent vaccination assessment: 03/04/2023 Treatment Plan Information: M32.19 - Systemic lupus erythematosus with other organ involvement Benlysta - Inject 200mg (1 pen) subcutaneously once weekly Est. Tx Plan Start Date: No information available Estimated Start Date Info: No information available Est. Estimated Treatment Duration: Until loss of efficacy and/or no longer tolerated. Luda Conde [facility] [phone] documented in this encounter [facility] 02-14-2024 Note HNO ID: [id number] Author: AIDEE QUINTANILLA RPh Service: ? Author Type: ? Type: Progress Notes Filed: 02/15/2024 15:14 Note Text: [facility] Refill Assessment Medication(s): Benlysta Patient's [...] laboratory parameters, disease state markers and outcomes. Office/provider notes have been reviewed prior to dispensing the medication. Aidee Quintanilla PharmD Clinical Pharmacist, [employer] [facility] ; Pool: P [facility] 2 Pool #: [id number] Thread Cutter Tender Assessment Patient confirmed: Yes Med/dose confirmed: Yes Supplies needed: Sharps container Missed doses: No Estimated days supply on hand: 1 Next cycle/dose due: 02/17/24 Copay amount: 0 Payment confirmed: Yes Delivery method: FedEx Signature required: Waived on patient request Delivery address: [address] [place] [address] Delivery date: 02/17/24 Questions or concerns for the pharmacist?: No Did you have any side effects believed to be related to this medication, that resulted in hospitalization?: No Current Outpatient Medications on File Prior to Visit Medication Sig predniSONE (DELTASONE) 10 mg tablet Take 40mg daily x 3, decrease by 5mg every 3days until taking 10mg daily with food thereafter (no oral nsaids) folic acid 1 mg tablet Take 1 tablet by mouth once daily. azaTHIOprine (IMURAN) 50 mg tablet TAKE 3 TABLETS BY MOUTH DAILY WITH FOOD. HOLD IF ON ANTIBIOTICS OR ILL. hydrOXYchloroQUINE (PLAQUENIL) 200 mg tablet TAKE 1 TAB TWICE A DAY WITH FOOD *SUNSCREEN WHILE OUTDOORS/OPHTHAMOLOGY EVERY 6-12 MONTHS WHILE ON* belimumab (BENLYSTA) 200 mg/mL auto-injector Inject 200mg (1 pen) subcutaneously once weekly ergocalciferol 50,000 unit capsule (VITAMIN D2, DRISDOL) Take 1cap by mouth once a week with food. topiramate (TOPAMAX) 25 mg tablet Take 1 tablet by mouth two times a day. pregabalin (LYRICA) 75 mg capsule take 1 capsule by mouth three times a day metoprolol tartrate, short acting, (LOPRESSOR) 50 mg [...] facility-administered medications on file prior to visit. [facility] RX SPECIALTY CLINICAL ASSESSMENT - INFLAMMATORY CONDITIONS V6: Assessment to use: Refill Assessment of injection issues: Yes Infection screening, including annual TB assessment when applicable to medication: Yes Current medication list (including drug interaction assessment): Yes Experience of adverse reactions to the medication: Yes Date of influenza vaccination reminder: 03/04/2023 Date of most recent vaccination assessment: 03/04/2023 Treatment Plan Information: M32.19 - Systemic lupus erythematosus with other organ involvement Benlysta - Inject 200mg (1 pen) subcutaneously once weekly Est. Tx Plan Start Date: No information available Estimated Start Date Info: No information available Est. Estimated Treatment Duration: Until loss of efficacy and/or no longer tolerated. Luda Conde CPhT [facility] [phone] [facility] 02-14-2024 History of Presen t illness Narrative Benefits investigation was conducted, indicating that a re-authorization is required for Benlysta. PA was initiated and pending review. Plan Name: Keesha ReevesMyMeds Webber: [id number] Luda Conde CPhT [facility] [phone] documented in this encounter [facility] 02-14-2024 Note HNO ID: [id number] Author: ?, ?, ? Service: ? Author Type: ? Type: Progress Notes Filed: 02/15/2024 09:58 Note Text: Derek WARREN was approved with details listed below. Plan Name: Keesha KELVIN reference number: [id number] Approval Dates: 02/14/24 - 02/11/25 Prescriptions will now be processed through [facility] for determination of next steps. Luda Conde [facility] [phone] [facility] 02-14-2024 Note HNO ID: [id number] Author: ?, ?, ? Service: ? Author Type: ? Type: Progress Notes Filed: 02/14/2024 14:31 Note Text: Benefits investigation was conducted, indicating that a re-authorization is required for Benlysta. KELVIN was initiated and pending review. Plan Name: Keesha CoverMyMeds [employer]: [id number] Luda Conde [facility] [phone] [facility] 02-14-2024 Instructions Timmy Heck APRN.STRATEGIC SOURCING CONSULTANT - 02/14/2024 8:03 AM EDT Images from the original note were not included. Your most recent body mass index (BMI) that we have on record is 43.08 kg/m2. Obstructive sleep apnea (JOSE RAFAEL) worsens with an increase in weight; reduction in weight may improve or resolve your JOSE RAFAEL. If you are not already seeking treatment, there are resources available at the [facility] such as a nutrition consultation or referral to weight management programs at our [facility] [place]. Please let us know if we can assist with a referral. Continue PAP Therapy - Continue Auto CPAP at 5-15 cmH2O. - Remember to clean your mask and equipment regularly, as directed. - You should be eligible for new supplies approximately every 3-6 months, depending on your insurance coverage. Contact your Durable Medical Equipment (DME) company for new supplies as needed. - Follow up in 12 months. Below are the guidelines for reordering your supplies. You will be responsible for your deductible, co-payments, and out of pocket expenses. DME: Josh [phone] - Remember to clean your mask and equipment regularly, as directed. - Avoid use of ozone electric solderer, SoClean devices, or UV cleaning devices - Avoid using alcohol or alcohol-containing products on your mask, as this may compromise the integrity of the mask materials and contribute to leak issues - Use only baby shampoo and water, mild dish soap (Dionne) and water, or CPAP-specific wipes to clean your supplies. Any appointments can be scheduled through the central scheduling system for the [facility] at [phone]. [facility] now offers direct scheduling for patients to schedule appointments. Virtual visits are also available. Call the office at [phone], option #5 for questions. documented in this encounter [facility] 02-14-2024 History of Presen t illness Narrative Images from the original note were not included. [facility] Sleep Disorders Center Virtual Visit Follow up/ Established patient visit Date of last visit : 07/27/2022 I have communicated my name and active licensure. The patient's identity and physical location were verified at the time of this visit. Either the patient or their legal rental sales representative has been informed of the risks and benefits of -- and alternatives to -- treatment through a remote evaluation and consents to proceed with the evaluation remotely. IMPRESSION/PLAN: Jose Rafael (obstructive sleep apnea) (primary [...] - Return Visit in 6 months. Timmy Umang, PREPARATION SUPERVISOR FREEZING.STRATEGIC SOURCING CONSULTANT Interval history : Here for follow up for sleep apnea management. SLEEP APNEA Sleep apnea type : JOSE RAFAEL Most Recent Apnea-Hypopnea Index (AHI): 5.3 (HSAT scored 4 %) Treatment : PAP therapy DME: [facility] [place] D[facility] fax: [phone] DME ph: [phone] PAP History: Current PAP settin-15 cm H2O. Uses AutoPAP nightly. Difficulties with AutoPAP: None Reviewed objective PAP compliance data: Mask type: nasal pillow interface Mask issues: air leaks Uses humidity: Yes, distilled water There is a perceived benefit by the patient: better sleep SLEEP HYGIENE QUESTIONS: She does not have a scheduled bedtime. Estimated total sleep time ( in a 24 hour period of time) : 12 hrs Naps : 2 hrs PATIENT-ENTERED QUESTIONNAIRE SLEEP SCORES 07/23/2022 Sleep Questions Reason for visit: Sleep apnea Excessive daytime sleepiness On average, hours of sleep in 24 hours: 12 Average hours of CPAP per night: 5 Percent of nights CPAP used at least 4 hours: 80 Accidents or near accidents due to drowsy drivin Multiple values from one day are sorted in reverse-chronological order 04/12/2022 07/23/2022 [place] Sleepiness Scale Score 4 (No clinically significant daytime sleepiness) 8 (No clinically significant daytime sleepiness) 07/23/2022 04/26/2023 05/24/2023 PROMIS CAT Sleep Disturbance PROMIS Sleep Disturbance T-Score 54 (within normal limits) 49 (within normal limits) 53 (within normal limits) PROMIS Sleep Disturbance Percentile 34 54 38 04/12/2022 Insomnia Severity Index Score 17 07/23/2022 04/12/2022 PHQ-9 Score 8 7 06/10/2023 09/08/2023 12/27/2023 PROMIS Global Health - (T-Scores - the mean of general population = 50. Five points is a clinically meaningful difference.) Physical T-Score 29.6 29.6 32.4 Mental T-Score 38.8 36.3 ALLERGIES Allergen Reactions Bactrim [Sulfametho* Other: See [...] she just experienced side effects. CURRENT MEDICATIONS: predniSONE (DELTASONE) 10 mg tablet Take 40mg daily x 3, decrease by 5mg every 3days until taking 10mg daily with food thereafter (no oral nsaids) folic acid 1 mg tablet Take 1 tablet by mouth once daily. azaTHIOprine (IMURAN) 50 mg tablet TAKE 3 TABLETS BY MOUTH DAILY WITH FOOD. HOLD IF ON ANTIBIOTICS OR ILL. hydrOXYchloroQUINE (PLAQUENIL) 200 mg tablet TAKE 1 TAB TWICE A DAY WITH FOOD *SUNSCREEN WHILE OUTDOORS/OPHTHAMOLOGY EVERY 6-12 MONTHS WHILE ON* belimumab (BENLYSTA) 200 mg/mL auto-injector Inject 200mg (1 pen) subcutaneously once weekly ergocalciferol 50,000 unit capsule (VITAMIN D2, DRISDOL) Take 1cap by mouth once a week with food. topiramate (TOPAMAX) 25 mg tablet Take 1 tablet by mouth two times a day. pregabalin (LYRICA) 75 mg capsule take 1 capsule by mouth three times a day metoprolol tartrate, short acting, (LOPRESSOR) 50 mg [...] fever, activity level is normal PHYSICAL EXAMINATION: GENERAL: alert and appropriate, in no distress and well-hydrated, well nourished, interactive IMPRESSION/PLAN: Jose Rafael (obstructive sleep apnea) (primary encounter diagnosis) Somnolence, daytime 43 year old female with PMH of JOSE RAFAEL, Fibromyalgia, HLD, SLE, Depression and Obesity presents for a virtual sleep apnea visit in order to obtain supplies. - Compliant and benefiting from treatment. - Still sleeping a lot which is r/t other co-morbidities. - We reviewed PAP compliance report. Residual AHI 1.3. - Stable. Continue AutoCPAP 5-15 cmH2O. - Discussed the pathophysiology of sleep apnea and risks of not treating including cardiac, stroke and drowsy driving risks. - Encourage regular change and maintenance of supplies to reduce mask leaks from wear and tear. - Supply orders renewed. - Encourage to avoid drowsy driving. - Encourage healthy lifestyle with adequate sleep (7-9 hours per night), diet, and exercise (goal of 150 minutes moderate-brisk exercise per week). - Follow up 12 months. Timmy Heck APRN.STRATEGIC SOURCING CONSULTANT documented in this encounter [facility] 02-14-2024 Note HNO ID: [id number] Author: TIMMY HECK APRN.STRATEGIC SOURCING CONSULTANT Service: ? Author Type: Nurse Practitioner Type: Progress Notes Filed: 02/14/2024 08:08 Note Text: [facility] Sleep Disorders Center Virtual Visit Follow up/ Established patient visit Date of last visit : 07/27/2022 I have communicated my name and active licensure. The patient's identity and physical location were verified at the time of this visit. Either the patient or their legal rental sales representative has been informed of the risks and benefits of -- and alternatives to -- treatment through a remote evaluation and consents to proceed with the evaluation remotely. IMPRESSION/PLAN: Jose Rafael (obstructive sleep apnea) (primary [...] Return Visit in 6 months. Timmy Heck APRN.STRATEGIC SOURCING CONSULTANT Interval history : Here for follow up for sleep apnea management. SLEEP APNEA Sleep apnea type : JOSE RAFAEL Most Recent Apnea-Hypopnea Index (AHI): 5.3 (HSAT scored 4 %) Treatment : PAP therapy DME: [facility] [place] fax: [phone] DME ph: [phone] PAP History: Current PAP settin-15 cm H2O. Uses AutoPAP nightly. Difficulties with AutoPAP: None Reviewed objective PAP compliance data: Mask type: nasal pillow interface Mask issues: air leaks Uses humidity: Yes, distilled water There is a perceived benefit by the patient: better sleep SLEEP HYGIENE QUESTIONS: She does not have a scheduled bedtime. Estimated total sleep time ( in a 24 hour period of time) : 12 hrs Naps : 2 hrs PATIENT-ENTERED QUESTIONNAIRE SLEEP SCORES 07/23/2022 Sleep Questions Reason for visit: Sleep apnea Excessive daytime sleepiness On average, hours of sleep in 24 hours: 12 Average hours of CPAP per night: 5 Percent of nights CPAP used at least 4 hours: 80 Accidents or near accidents due to drowsy drivin Multiple values from one day are sorted in reverse-chronological order 04/12/2022 07/23/2022 [place] Sleepiness Scale Score 4 (No clinically significant daytime sleepiness) 8 (No clinically significant daytime sleepiness) 07/23/2022 04/26/2023 05/24/2023 PROMIS CAT Sleep Disturbance PROMIS Sleep Disturbance T-Score 54 (within normal limits) 49 (within normal limits) 53 (within normal limits) PROMIS Sleep Disturbance Percentile 34 54 38 04/12/2022 Insomnia Severity Index Score 17 07/23/2022 04/12/2022 PHQ-9 Score 8 7 06/10/2023 09/08/2023 12/27/2023 PROMIS Global Health - (T-Scores - the mean of general population = 50. Five points is a clinically meaningful difference.) Physical T-Score 29.6 29.6 32.4 Mental T-Score 38.8 36.3 ALLERGIES Allergen Reactions Bactrim [Sulfametho* Other: See [...] she just experienced side effects. CURRENT MEDICATIONS: predniSONE (DELTASONE) 10 mg tablet Take 40mg daily x 3, decrease by 5mg every 3days until taking 10mg daily with food thereafter (no oral nsaids) folic acid 1 mg tablet Take 1 tablet by mouth once daily. azaTHIOprine (IMURAN) 50 mg tablet TA (more content not included)... [facility] 01-27-2024 Note HNO ID: [id number] Author: ALHAJI HEAD, DO Service: ? Author Type: Physician Type: Progress Notes Filed: 01/27/2024 16:54 Note Text: VIRTUAL VISIT PROGRESS NOTE This is a virtual visit using [employer] Video Visit. It required patient-provider interaction for the medical decision making as documented below. I have communicated my name and active licensure. The patient's identity and physical location were verified at the time of this visit. Either the patient or their legal rental sales representative has been informed of the risks and benefits of -- and alternatives to -- treatment through a remote evaluation and consents to proceed with the evaluation remotely. Jones Haley is a 43 year old female seen for nipple discharge. She started having a scan amount of nipple discharge from bilateral nipples for about 1 year. She does not have spontaneous drainage but only nipple drainage when she squeezes the nipple. This produces only a very tiny amount of green drainage. She saw her OB/ urogynaecologist. This was thought to be secondary to her medication at first. A culture of the nipple discharge was taken and grew pseudomonas oryzihabitans. She was given gentamicin topcial cream with no relief. Only oral option was cipro which was avoided due to concern of drug/ drug interaction (plaquenil and cipro with QTc). She was educated that this would just need to be monitored but did not want to take the medications with the potential reaction. She had an episode of C. Diff in 2023 which rapidly improved with fidaxomicin and was hesitant to take any IV antibiotics. She reportedly was offered surgery for definitive cure which she declined. She had a CT of the chest done with no soft tissue abscess. Also reportedly had a mammogram but I cannot see those results. Currently she continues to feel ill at baseline which is unchanged from how she has consistently felt. No extreme fevers. No breast pain. No breast redness or swelling. No spontaneous discharge or drainage. Only scant amount when squeezed. Also with oral pain, white patches on hard palate consistent with prior feeling and symptoms of thrush. HISTORY REVIEWED (electronic chart updated): PAST MEDICAL HISTORY No date: Chronic pain syndrome No date: Depression, recurrent (HCC) No date: Diffuse cystic mastopathy 11/09/2013: H/O mammogram No date: Hypotension, unspecified No date: Low back pain 03/04/2022: Megaloblastic anemia due to vitamin B12 deficiency No date: Mixed hyperlipidemia No date: Obesity, unspecified No date: Pain, hip 01/16/14: Physical exam, annual No date: Pilonidal cyst with abscess No date: Sacroiliitis (HCC) No date: Sciatica No date: Tobacco use disorder No date: Vitamin B12 deficiency No date: Vitamin D deficiency PAST SURGICAL HISTORY 2011 and 2012: PAST SURGICAL HISTORY OF Comment: pilonidal cyst 1990s: PAST SURGICAL HISTORY OF Comment: D AND C 1990s: PAST SURGICAL HISTORY OF Comment: ablation FAMILY HISTORY Problem Relation Age of Onset Cancer Father stomach other (Crohn's [Other]) Mother Social History Tobacco Use Smoking status: Every Day Current packs/day: 1.00 Average packs/day: 1 pack/day for 20.0 years (20.0 ttl pk-yrs) Types: Cigarettes Smokeless tobacco: Never Vaping Use Vaping status: Never Used Substance Use Topics Alcohol use: No Drug use: Yes Types: Marijuana Comment: Past use of marijuana at age of 18 Current Outpatient Medications Medication Sig predniSONE (DELTASONE) 10 mg tablet Take 40mg daily x 3, decrease by 5mg every 3days until taking 10mg daily with food thereafter (no oral nsaids) folic acid 1 mg tablet Take 1 tablet by mouth once daily. azaTHIOprine (IMURAN) 50 mg tablet TAKE 3 TABLETS BY MOUTH DAILY WITH FOOD. HOLD IF ON ANTIBIOTICS OR ILL. hydrOXYchloroQUINE (PLAQUENIL) 200 mg tablet TAKE 1 TAB TWICE A DAY WITH FOOD *SUNSCREEN WHILE OUTDOORS/OPHTHAMOLOGY EVERY 6-12 MONTHS WHILE ON* belimumab (BENLYSTA) 200 mg/mL auto-injector Inject 200mg (1 pen) subcutaneously once weekly ergocalciferol 50,000 unit capsule (VITAMIN D2, DRISDOL) Take 1cap by mouth once a week with food. topiramate (TOPAMAX) 25 mg tablet Take 1 tablet by mouth two times a day. pregabalin (LYRICA) 75 mg capsule take 1 capsule by mouth three times a day metoprolol tartrate, short acting, (LOPRESSOR) 50 mg [...] this visit. ALLERGIES Allergen Reactions Bactrim [Sulfametho* Other: See Comments CAUSED ENLARGED LYMPH NODES Codeine Other: See Comments Make her feel Jittery. OTHERWISE, NO SOB/WHEEZING, and NO DYSPHAG (more content not included)... [facility] 01-27-2024 History of Presen t illness Narrative Images from the original note were not included. VIRTUAL VISIT PROGRESS NOTE This is a virtual visit using [employer] Video Visit. It required patient-provider interaction for the medical decision making as documented below. I have communicated my name and active licensure. The patient's identity and physical location were verified at the time of this visit. Either the patient or their legal rental sales representative has been informed of the risks and benefits of -- and alternatives to -- treatment through a remote evaluation and consents to proceed with the evaluation remotely. Jones Haley is a 43 year old female seen for nipple discharge. She started having a scan amount of nipple discharge from bilateral nipples for about 1 year. She does not have spontaneous drainage but only nipple drainage when she squeezes the nipple. This produces only a very tiny amount of green drainage. She saw her OB/ urogynaecologist. This was thought to be secondary to her medication at first. A culture of the nipple discharge was taken and grew pseudomonas oryzihabitans. She was given gentamicin topcial cream with no relief. Only oral option was cipro which was avoided due to concern of drug/ drug interaction (plaquenil and cipro with QTc). She was educated that this would just need to be monitored but did not want to take the medications with the potential reaction. She had an episode of C. Diff in 2023 which rapidly improved with fidaxomicin and was hesitant to take any IV antibiotics. She reportedly was offered surgery for definitive cure which she declined. She had a CT of the chest done with no soft tissue abscess. Also reportedly had a mammogram but I cannot see those results. Currently she continues to feel ill at baseline which is unchanged from how she has consistently felt. No extreme fevers. No breast pain. No breast redness or swelling. No spontaneous discharge or drainage. Only scant amount when squeezed. Also with oral pain, white patches on hard palate consistent with prior feeling and symptoms of thrush. HISTORY REVIEWED (electronic chart updated): PAST MEDICAL HISTORY No date: Chronic pain syndrome No date: Depression, recurrent (HCC) No date: Diffuse cystic mastopathy 11/09/2013: H/O mammogram No date: Hypotension, unspecified No date: Low back pain 03/04/2022: Megaloblastic anemia due to vitamin B12 deficiency No date: Mixed hyperlipidemia No date: Obesity, unspecified No date: Pain, hip 01/16/14: Physical exam, annual No date: Pilonidal cyst with abscess No date: Sacroiliitis (HCC) No date: Sciatica No date: Tobacco use disorder No date: Vitamin B12 deficiency No date: Vitamin D deficiency PAST SURGICAL HISTORY 2011 and 2012: PAST SURGICAL HISTORY OF Comment: pilonidal cyst : PAST SURGICAL HISTORY OF Comment: D & C : PAST SURGICAL HISTORY OF Comment: ablation FAMILY HISTORY Problem Relation Age of Onset Cancer Father stomach other (Crohn's [Other]) Mother Social History Tobacco Use Smoking status: Every Day Current packs/day: 1.00 Average packs/day: 1 pack/day for 20.0 years (20.0 ttl pk-yrs) Types: Cigarettes Smokeless tobacco: Never Vaping Use Vaping status: Never Used Substance Use Topics Alcohol use: No Drug use: Yes Types: Marijuana Comment: Past use of marijuana at age of 18 Current Outpatient Medications Medication Sig predniSONE (DELTASONE) 10 mg tablet Take 40mg daily x 3, decrease by 5mg every 3days until taking 10mg daily with food thereafter (no oral nsaids) folic acid 1 mg tablet Take 1 tablet by mouth once daily. azaTHIOprine (IMURAN) 50 mg tablet TAKE 3 TABLETS BY MOUTH DAILY WITH FOOD. HOLD IF ON ANTIBIOTICS OR ILL. hydrOXYchloroQUINE (PLAQUENIL) 200 mg tablet TAKE 1 TAB TWICE A DAY WITH FOOD *SUNSCREEN WHILE OUTDOORS/OPHTHAMOLOGY EVERY 6-12 MONTHS WHILE ON* belimumab (BENLYSTA) 200 mg/mL auto-injector Inject 200mg (1 pen) subcutaneously once weekly ergocalciferol 50,000 unit capsule (VITAMIN D2, DRISDOL) Take 1cap by mouth once a week with food. topiramate (TOPAMAX) 25 mg tablet Take 1 tablet by mouth two times a day. pregabalin (LYRICA) 75 mg capsule take 1 capsule by mouth three times a day metoprolol tartrate, short acting, (LOPRESSOR) 50 mg [...] this visit. ALLERGIES Allergen Reactions Bactrim [Sulfametho* Other: See [...] just experienced side effects. REVIEW OF SYSTEMS: GENERAL: Chronic fatigue and malaise HEENT: mouth pain Breast: scant amount of green nipple discharge from each breast GI: normal appetite, tolerating PO well, BMs normal, and no abdominal pain SKIN: no rash, swelling or redness PHYSICAL EXAMINATION: VIDEO EXAM: (if completed, performed via video enabled technology) GENERAL: alert and appropriate, in no distress and well-hydrated, well nourished SKIN: no rash noted HEAD: normocephalic, no abnormality or lesion noted Oropharynx: unable to visualize hard/ soft palate on oral exam today EYES: no injection and visual acuity is grossly normal Breast: scan pin drop size of white/ green nipple drainage RESPIRATORY: breathing non-labored NEUROLOGIC: no obvious deficit CT chest 12/10: reported as ASSESSMENT/ PLAN: Jones Haley is a 43 year old female with a PMH of depression, HLD, SLE on plaquenil, pilonidal cyst s/p I&D, abnormal LE EMG, JOSE RAFAEL, hx of c. Diff 2023, with chronic fatigue and malaise who presents due to surface wound culture of the scant amount of nipple drainage with pseudomonas oryzihabitans. Treated with topical gentamicin cream with no relief. Discussed treatment options of monitoring as she does not have localized signs or symptoms of local infection and systemic symptoms of chronic fatigue and malaise have not changed to suggest acute infection. Also discussed po cipro treatment vs IV antibiotics. She has concerns regarding recurrent C. Diff and drug drug interactions with cipro. With shared decision making, we have decided to closely monitor nipple drainage for localized signs and symptoms of infection. Also with new or changes systemic symptoms of infection. Blood cultures ordered out an abundance of caution Nystatin ordered for oral thrush Alhaji Head DO documented in this encounter [facility] 01-25-2024 Nurse Note Patient Identification confirmed: yes. Injection given and documented on JUL per provider order. Margret Cuenca MA [facility] 01-25-2024 Nurse Note Patient Identification confirmed: yes. Injection given and documented on MAR per provider order. Margret Cuenca MA documented in this encounter [facility] 01-18-2024 History of Presen t illness Narrative [facility] [...] laboratory parameters, disease state markers and outcomes. Aidee Quintanilla, RolandD Clinical Pharmacist, [employer] [facility] Special[facility] Pharm[facility] ; Pool: P [facility] Pool #: [id number] Thread Cutter Tender Assessment Patient confirmed: Yes Med/dose confirmed: Yes Supplies needed: No supplies needed Missed doses: No Estimated days supply on hand: (At least 1 dose) Next cycle/dose due: 01/20/24 Copay amount: 0 Payment confirmed: Yes Delivery method: FedEx Signature required: Waived on patient request Delivery address: [address] [place] [address] Delivery date: 01/21/24 Questions or concerns for the pharmacist?: No Did you have any side effects believed to be related to this medication, that resulted in hospitalization?: No Current Outpatient Medications on File Prior to Visit Medication Sig predniSONE (DELTASONE) 10 mg tablet Take 40mg daily x 3, decrease by 5mg every 3days until taking 10mg daily with food thereafter (no oral nsaids) folic acid 1 mg tablet Take 1 tablet by mouth once daily. azaTHIOprine (IMURAN) 50 mg tablet TAKE 3 TABLETS BY MOUTH DAILY WITH FOOD. HOLD IF ON ANTIBIOTICS OR ILL. hydrOXYchloroQUINE (PLAQUENIL) 200 mg tablet TAKE 1 TAB TWICE A DAY WITH FOOD *SUNSCREEN WHILE OUTDOORS/OPHTHAMOLOGY EVERY 6-12 MONTHS WHILE ON* belimumab (BENLYSTA) 200 mg/mL auto-injector Inject 200mg (1 pen) subcutaneously once weekly ergocalciferol 50,000 unit capsule (VITAMIN D2, DRISDOL) Take 1cap by mouth once a week with food. topiramate (TOPAMAX) 25 mg tablet Take 1 tablet by mouth two times a day. pregabalin (LYRICA) 75 mg capsule take 1 capsule by mouth three times a day metoprolol tartrate, short acting, (LOPRESSOR) 50 mg [...] facility-administered medications on file prior to visit. [facility] CLINICAL ASSESSMENT - INFLAMMATORY CONDITIONS V6: Assessment to use: Refill Assessment of injection issues: Yes Infection screening, including annual TB assessment when applicable to medication: Yes Current medication list (including drug interaction assessment): Yes Experience of adverse reactions to the medication: Yes Date of influenza vaccination reminder: 03/04/2023 Date of most recent vaccination assessment: 03/04/2023 Treatment Plan Information: M32.19 - Systemic lupus erythematosus with other organ involvement Benlysta - Inject 200mg (1 pen) subcutaneously once weekly Est. Tx Plan Start Date: No information available Estimated Start Date Info: No information available Est. Estimated Treatment Duration: Until loss of efficacy and/or no longer tolerated. Arianne Mckinley CPhT, Inflammatory/Allergy [facility] [phone] documented in this encounter [facility] 01-18-2024 Note HNO ID: [id number] Author: AIDEE QUINTANILLA RPh Service: ? Author Type: ? Type: Progress Notes Filed: 01/19/2024 17:53 Note Text: [facility] Specialty Refill Assessment Medication(s): Benlysta Patient's [...] laboratory parameters, disease state markers and outcomes. Roland CamarilloD Clinical Pharmacist, [employer] [facility] ; Pool: P [facility] Pool #: [id number] Thread Cutter Tender Assessment Patient confirmed: Yes Med/dose confirmed: Yes Supplies needed: No supplies needed Missed doses: No Estimated days supply on hand: (At least 1 dose) Next cycle/dose due: 01/20/24 Copay amount: 0 Payment confirmed: Yes Delivery method: FedEx Signature required: Waived on patient request Delivery address: [address] [place] [address] Delivery date: 01/21/24 Questions or concerns for the pharmacist?: No Did you have any side effects believed to be related to this medication, that resulted in hospitalization?: No Current Outpatient Medications on File Prior to Visit Medication Sig predniSONE (DELTASONE) 10 mg tablet Take 40mg daily x 3, decrease by 5mg every 3days until taking 10mg daily with food thereafter (no oral nsaids) folic acid 1 mg tablet Take 1 tablet by mouth once daily. azaTHIOprine (IMURAN) 50 mg tablet TAKE 3 TABLETS BY MOUTH DAILY WITH FOOD. HOLD IF ON ANTIBIOTICS OR ILL. hydrOXYchloroQUINE (PLAQUENIL) 200 mg tablet TAKE 1 TAB TWICE A DAY WITH FOOD *SUNSCREEN WHILE OUTDOORS/OPHTHAMOLOGY EVERY 6-12 MONTHS WHILE ON* belimumab (BENLYSTA) 200 mg/mL auto-injector Inject 200mg (1 pen) subcutaneously once weekly ergocalciferol 50,000 unit capsule (VITAMIN D2, DRISDOL) Take 1cap by mouth once a week with food. topiramate (TOPAMAX) 25 mg tablet Take 1 tablet by mouth two times a day. pregabalin (LYRICA) 75 mg capsule take 1 capsule by mouth three times a day metoprolol tartrate, short acting, (LOPRESSOR) 50 mg [...] facility-administered medications on file prior to visit. [facility] CLINICAL ASSESSMENT - INFLAMMATORY CONDITIONS V6: Assessment to use: Refill Assessment of injection issues: Yes Infection screening, including annual TB assessment when applicable to medication: Yes Current medication list (including drug interaction assessment): Yes Experience of adverse reactions to the medication: Yes Date of influenza vaccination reminder: 03/04/2023 Date of most recent vaccination assessment: 03/04/2023 Treatment Plan Information: M32.19 - Systemic lupus erythematosus with other organ involvement Benlysta - Inject 200mg (1 pen) subcutaneously once weekly Est. Tx Plan Start Date: No information available Estimated Start Date Info: No information available Est. Estimated Treatment Duration: Until loss of efficacy and/or no longer tolerated. Arianne Kingsmill, contact lens edge buffer, Inflammatory/Allergy [facility] [phone] [facility] 01-12-2024 Telephone encounter Note Pt has been notified via [employer]. [facility] 01-12-2024 Miscellaneous Notes Pt has been notified via [employer]. Please call patient. Thank you for the update. Sorry to hear about your discomfort/infection Sent new prednisone script as requested. Hope you feel better soon! Warm regards, :) Patient's request for medication is as follows: Requested Prescriptions Signed Prescriptions Disp Refills predniSONE (DELTASONE) 10 mg tablet 120 tablet 1 Sig: Take 40mg daily x 3, decrease by 5mg every 3days until taking 10mg daily with food thereafter (no oral nsaids) Prescription(s) as above. Please process accordingly. Lynne Ni MD Images from the original note were not included. Most recent Rheumatology visit: 10/05/2023 (with Lynne Ni) Last Bone Density on file: None on file Rheumatology Care Team: None on file Recent [...] found. CBC: Latest Ref Rng & Units 11/24/2023 12/27/2023 CBC WBC 3.70 - 11.00 k/uL 10.69 14.93 Hemoglobin 11.5 - 15.5 g/dL 13.0 13.0 Hematocrit 36.0 - 46.0 % 40.6 39.6 Platelet Count 150 - 400 k/uL 271 309 Abs Neut (ANC) 1.45 - 7.50 k/uL 8.28 Abs Lymph 1.00 - 4.00 k/uL 1.87 Vitamin D: Latest Ref Rng & Units 08/31/2023 12/27/2023 Vitamin D Vitamin D 25 Hydroxy 31.0 - 80.0 ng/mL 32.2 31.0 LFT: Latest Ref Rng & Units 11/24/2023 12/27/2023 CMP Sodium 136 - 144 mmol/L 137 144 Potassium 3.7 - 5.1 mmol/L 4.2 4.1 Chloride 98 - 107 mmol/L 104 107 CO2 22 - 30 mmol/L 24 23 Glucose 74 - 99 mg/dL 185 120 BUN 7 - 21 mg/dL 12 13 Creatinine 0.58 - 0.96 mg/dL 0.74 0.70 Calcium 8.5 - 10.2 mg/dL 9.9 10.0 AST 13 - 35 U/L 13 13 ALT 7 - 38 U/L 24 23 Alkaline Phosphatase 34 - 123 U/L 69 77 Hepatic Function: Creatinine: Latest Ref Rng & Units 11/24/2023 12/27/2023 Creatinine Creatinine 0.58 - 0.96 mg/dL 0.74 0.70 ESR/CRP: Latest Ref Rng & Units 11/24/2023 12/27/2023 ESR, WSR WSR 0 - 20 mm/hr 32 31 Latest Ref Rng & Units 08/31/2023 12/27/2023 CRP CRP <0.9 mg/dL 0.6 <0.3 Uric Acid: None on file in the last 6 months Open Standing (Multiple Instance) Lab Orders Remain Interval Expires Ordered Last Rel. CBC + DIFF [SQCBCDIF] 2 Every 3 months 06/02/24 06/03/23 11/24/23 Auth. provider: Jose Najera MD Assoc. diagnoses: Megaloblastic anemia due to vitamin B12 deficiency, Elevated sed rate COMP METABOLIC PANEL [SQCMP] 2/ Every 3 months 01/03/1706/03/23 11/24/23 Auth. provider: Jose Najera MD Assoc. diagnoses: Megaloblastic anemia due to vitamin B12 deficiency, Elevated sed rate IRON + TIBC [SQIRON] 2/5 Every 3 months 06/02/24 06/03/23 11/24/23 Auth. provider: Jose Najera MD Assoc. diagnoses: Megaloblastic anemia due to vitamin B12 deficiency, Elevated sed rate FERRITIN BLD [SQFERR] 2/5 Every 3 months 06/02/24 06/03/23 11/24/23 Auth. provider: Jose Najera MD Assoc. diagnoses: Megaloblastic anemia due to vitamin B12 deficiency, Elevated sed rate VITAMIN B12 BLOOD [SQB12] 2/5 Every 3 months 06/02/24 06/03/23 11/24/23 Auth. provider: Jose Najera MD Assoc. diagnoses: Megaloblastic anemia due to vitamin B12 deficiency, Elevated sed rate FOLATE SERUM [SQSERFOL] 2/5 Every 3 months 06/02/24 06/03/23 11/24/23 Auth. provider: Jose Najera MD Assoc. diagnoses: Megaloblastic anemia due to vitamin B12 deficiency, Elevated sed rate SED RATE WESTERGREN [SQWSR] 2/4 Every 3 months 06/09/24 06/10/23 11/24/23 Auth. provider: Jose Najera MD Assoc. diagnoses: Elevated sed rate Open Future (Single Instance) Lab Orders Expected Expires Ordered COMPREHENSIVE METABOLIC PANEL [SQCMP] 03/20/24 06/19/24 12/27/23 Auth. provider: Neda Narayanan PA-C Assoc. diagnoses: Megaloblastic anemia due to vitamin B12 deficiency, Elevated sed rate, Obstructive sleep apnea syndrome IRON AND TIBC [SQIRON] 03/20/24 06/19/24 12/27/23 Auth. provider: Neda Narayanan PA-C Assoc. diagnoses: Megaloblastic anemia due to vitamin B12 deficiency, Elevated sed rate, Obstructive sleep apnea syndrome COMPLETE BLOOD COUNT AND DIFFERENTIAL [SQCBCDIF] 03/20/24 06/19/24 12/27/23 Auth. provider: Neda Narayanan PA-C Assoc. diagnoses: Megaloblastic anemia due to vitamin B12 deficiency, Elevated sed rate, Obstructive sleep apnea syndrome FERRITIN [SQFERR] 03/20/24 06/19/24 12/27/23 Auth. provider: Neda Narayanan PA-C Assoc. diagnoses: Megaloblastic anemia due to vitamin B12 deficiency, Elevated sed rate, Obstructive sleep apnea syndrome IMMUNOGLOBULINS,IGG,IGA,IGM [SQSERIMM] 03/20/24 06/19/24 12/27/23 Auth. provider: Neda Narayanan PA-C Assoc. diagnoses: Megaloblastic anemia due to vitamin B12 deficiency, Elevated sed rate, Obstructive sleep apnea syndrome FOLATE, SERUM [SQSERFOL] 03/20/24 06/19/24 12/27/23 Auth. provider: Neda Narayanan PA-C Assoc. diagnoses: Megaloblastic anemia due to vitamin B12 deficiency, Elevated sed rate, Obstructive sleep apnea syndrome VITAMIN B12 [SQB12] 03/20/24 06/19/24 12/27/23 Auth. provider: Neda Narayanan PA-C Assoc. diagnoses: Megaloblastic anemia due to vitamin B12 deficiency, Elevated sed rate, Obstructive sleep apnea syndrome SEDIMENTATION RATE, WESTERGREN [SQWSR] 03/20/24 12/29/24 12/30/23 Auth. provider: Lynne Ni MD Assoc. diagnoses: Elevated C-reactive protein (CRP), Elevated sed rate C-REACTIVE PROTEIN [SQCRP] 03/20/24 12/29/24 12/30/23 Auth. provider: Lynne Ni MD Assoc. diagnoses: Elevated C-reactive protein (CRP), Elevated sed rate VITAMIN D 25 HYDROXY [SQVITD] 03/20/24 12/29/24 12/30/23 Auth. provider: Lynne Ni MD Assoc. diagnoses: Vitamin D deficiency BLOOD TB SCREEN [SQINFTBP] 03/20/24 12/29/24 12/30/23 Auth. provider: Lynne Ni MD Assoc. diagnoses: Screening-pulmonary TB documented in this encounter [facility] 01-12-2024 Telephone encounter Note Please call patient. Thank you for the update. Sorry to hear about your discomfort/infection Sent new prednisone script as requested. Hope you feel better soon! Warm regards, :) Patient's request for medication is as follows: Requested Prescriptions Signed Prescriptions Disp Refills predniSONE (DELTASONE) 10 mg tablet 120 tablet 1 Sig: Take 40mg daily x 3, decrease by 5mg every 3days until taking 10mg daily with food thereafter (no oral nsaids) Prescription(s) as above. Please process accordingly. Lynne Ni MD [facility] 01-12-2024 Telephone encounter Note Images from the original note were not included. Most recent Rheumatology visit: 10/05/2023 (with Lynne Ni) Last Bone Density on file: None on file Rheumatology Care Team: None on file Recent [...] found. CBC: Latest Ref Rng & Units 11/24/2023 12/27/2023 CBC WBC 3.70 - 11.00 k/uL 10.69 14.93 Hemoglobin 11.5 - 15.5 g/dL 13.0 13.0 Hematocrit 36.0 - 46.0 % 40.6 39.6 Platelet Count 150 - 400 k/uL 271 309 Abs Neut (ANC) 1.45 - 7.50 k/uL 8.28 Abs Lymph 1.00 - 4.00 k/uL 1.87 Vitamin D: Latest Ref Rng & Units 08/31/2023 12/27/2023 Vitamin D Vitamin D 25 Hydroxy 31.0 - 80.0 ng/mL 32.2 31.0 LFT: Latest Ref Rng & Units 11/24/2023 12/27/2023 CMP Sodium 136 - 144 mmol/L 137 144 Potassium 3.7 - 5.1 mmol/L 4.2 4.1 Chloride 98 - 107 mmol/L 104 107 CO2 22 - 30 mmol/L 24 23 Glucose 74 - 99 mg/dL 185 120 BUN 7 - 21 mg/dL 12 13 Creatinine 0.58 - 0.96 mg/dL 0.74 0.70 Calcium 8.5 - 10.2 mg/dL 9.9 10.0 AST 13 - 35 U/L 13 13 ALT 7 - 38 U/L 24 23 Alkaline Phosphatase 34 - 123 U/L 69 77 Hepatic Function: Creatinine: Latest Ref Rng & Units 11/24/2023 12/27/2023 Creatinine Creatinine 0.58 - 0.96 mg/dL 0.74 0.70 ESR/CRP: Latest Ref Rng & Units 11/24/2023 12/27/2023 ESR, WSR WSR 0 - 20 mm/hr 32 31 Latest Ref Rng & Units 08/31/2023 12/27/2023 CRP CRP <0.9 mg/dL 0.6 <0.3 Uric Acid: None on file in the last 6 months Open Standing (Multiple Instance) Lab Orders Remain Interval Expires Ordered Last Rel. CBC + DIFF [SQCBCDIF] 2/5 Every 3 months 06/02/24 06/03/23 11/24/23 Auth. provider: Jose Najera MD Assoc. diagnoses: Megaloblastic anemia due to vitamin B12 deficiency, Elevated sed rate COMP METABOLIC PANEL [SQCMP] 2/5 Every 3 months 06/02/24 06/03/23 11/24/23 Auth. provider: Jose Najera MD Assoc. diagnoses: Megaloblastic anemia due to vitamin B12 deficiency, Elevated sed rate IRON + TIBC [SQIRON] 2/5 Every 3 months 06/02/24 06/03/23 11/24/23 Auth. provider: Jose Najera MD Assoc. diagnoses: Megaloblastic anemia due to vitamin B12 deficiency, Elevated sed rate FERRITIN BLD [SQFERR] 2/5 Every 3 months 06/02/24 06/03/23 11/24/23 Auth. provider: Jose Najera MD Assoc. diagnoses: Megaloblastic anemia due to vitamin B12 deficiency, Elevated sed rate VITAMIN B12 BLOOD [SQB12] 2/ Every 3 months 06/02/24 06/03/23 11/24/23 Auth. provider: Jose Najera MD Assoc. diagnoses: Megaloblastic anemia due to vitamin B12 deficiency, Elevated sed rate FOLATE SERUM [SQSERFOL] 2/ Every 3 months 06/02/24 06/03/23 11/24/23 Auth. provider: Jose Najera MD Assoc. diagnoses: Megaloblastic anemia due to vitamin B12 deficiency, Elevated sed rate SED RATE WESTERGREN [SQWSR] 2/ Every 3 months 06/09/24 06/10/23 11/24/23 Auth. provider: Jose Najera MD Assoc. diagnoses: Elevated sed rate Open Future (Single Instance) Lab Orders Expected Expires Ordered COMPREHENSIVE METABOLIC PANEL [SQCMP] 03/20/24 06/19/24 12/27/23 Auth. provider: Neda Narayanan PA-C Assoc. diagnoses: Megaloblastic anemia due to vitamin B12 deficiency, Elevated sed rate, Obstructive sleep apnea syndrome IRON AND TIBC [SQIRON] 03/20/24 06/19/24 12/27/23 Auth. provider: Neda Narayanan PA-C Assoc. diagnoses: Megaloblastic anemia due to vitamin B12 deficiency, Elevated sed rate, Obstructive sleep apnea syndrome COMPLETE BLOOD COUNT AND DIFFERENTIAL [SQCBCDIF] 03/20/24 06/19/24 12/27/23 Auth. provider: Neda Narayanan PA-C Assoc. diagnoses: Megaloblastic anemia due to vitamin B12 deficiency, Elevated sed rate, Obstructive sleep apnea syndrome FERRITIN [SQFERR] 03/20/24 06/19/24 12/27/23 Auth. provider: Neda Narayanan PA-C Assoc. diagnoses: Megaloblastic anemia due to vitamin B12 deficiency, Elevated sed rate, Obstructive sleep apnea syndrome IMMUNOGLOBULINS,IGG,IGA,IGM [SQSERIMM] 03/20/24 06/19/24 12/27/23 Auth. provider: Neda Narayanan PA-C Assoc. diagnoses: Megaloblastic anemia due to vitamin B12 deficiency, Elevated sed rate, Obstructive sleep apnea syndrome FOLATE, SERUM [SQSERFOL] 03/20/24 06/19/24 12/27/23 Auth. provider: Neda Narayanan PA-C Assoc. diagnoses: Megaloblastic anemia due to vitamin B12 deficiency, Elevated sed rate, Obstructive sleep apnea syndrome VITAMIN B12 [SQB12] 03/20/24 06/19/24 12/27/23 Auth. provider: Neda Narayanan PA-C Assoc. diagnoses: Megaloblastic anemia due to vitamin B12 deficiency, Elevated sed rate, Obstructive sleep apnea syndrome SEDIMENTATION RATE, WESTERGREN [SQWSR] 03/20/24 12/29/24 12/30/23 Auth. provider: Lynne Ni MD Assoc. diagnoses: Elevated C-reactive protein (CRP), Elevated sed rate C-REACTIVE PROTEIN [SQCRP] 03/20/24 12/29/24 12/30/23 Auth. provider: Lynne Ni MD Assoc. diagnoses: Elevated C-reactive protein (CRP), Elevated sed rate VITAMIN D 25 HYDROXY [SQVITD] 03/20/24 12/29/24 12/30/23 Auth. provider: Lynne Ni MD Assoc. diagnoses: Vitamin D deficiency BLOOD TB SCREEN [SQINFTBP] 03/20/24 12/29/24 12/30/23 Auth. provider: Lynne Ni MD Assoc. diagnoses: Screening-pulmonary TB [facility] 12-30-2023 Telephone encounter Note Spoke to pt aware of results and recommendations. [facility] 12-30-2023 Miscellaneous Notes Spoke to pt aware of results and recommendations. Please Call patient if MyChart note not read to review results/released to My Chart if tests completed at [facility]: One Borderline inflammatory test, wbc- will monitor with primary care provider. Normal rest of labs and normal other inflammatory test. Continue same vitamin D intake with food. Recheck nonfasting labs in late 02/2024 with Hematology/oncology tests.The orders have been placed. Happy to further review and discuss at follow up visit. Continue rest of treatment plan per instructions at last office visit. Thank you. 12/27/23 high glucose 120, esr 31, wbc 14.93;normal rest of cbc, cmp, crp <0.3, vitamin D 31; 12/27/23 saw heme/onc no need to be on anticoagulation, high IGM likely reactive, continue vitamin b12 every month documented in this encounter [facility] 12-30-2023 Telephone encounter Note Please Call patient if MyChart note not read to review results/released to My Chart if tests completed at [facility]: One Borderline inflammatory test, wbc- will monitor with primary care provider. Normal rest of labs and normal other inflammatory test. Continue same vitamin D intake with food. Recheck nonfasting labs in late 02/2024 with Hematology/oncology tests.The orders have been placed. Happy to further review and discuss at follow up visit. Continue rest of treatment plan per instructions at last office visit. Thank you. 12/27/23 high glucose 120, esr 31, wbc 14.93;normal rest of cbc, cmp, crp <0.3, vitamin D 31; 12/27/23 saw heme/onc no need to be on anticoagulation, high IGM likely reactive, continue vitamin b12 every month [facility] 12-27-2023 Telephone encounter Note Pt informed of MM message and denies any questions, needs or concerns at this time. Appointments verified. Bhargav Hamm, RN [facility] 12-27-2023 Miscellaneous Notes Pt informed of MM message and denies any questions, needs or concerns at this time. Appointments verified. Bhargav Hamm RN Please call and inform the patient that I reviewed her [facility] records and there is no evidence of a blood clot and she does not need to be on blood thinners. Neda Narayanan PA-C documented in this encounter [facility] 12-27-2023 Telephone encounter Note Please call and inform the patient that I reviewed her [facility] records and there is no evidence of a blood clot and she does not need to be on blood thinners. Neda Narayanan PA-C [facility] Work Phone: 12-27-2023 Nurse Note Patient Identification confirmed: yes. Injection given and documented on MAR per provider order. Margret Cuenca MA [facility] 12-27-2023 Nurse Note Patient Identification confirmed: yes. Injection given and documented on MAR per provider order. Margret Cuenca MA documented in this encounter [facility] 12-27-2023 History of Presen t illness Narrative Images from the original note were not included. NAME: Jefffrancisco javierJones [facility] NO.: [id number] DATE OF SERVICE: December 27, 2023 (Liz) Some elements in this clinic note that are critical to medical decision making have been carefully reviewed and included from a prior clinic note dated: September 09, 2023 (Marquis) Referring Provider: Dr. aMdelaine Ferris Additional Clinicians involved in Joens Haley's care: DIAGNOSIS: Multiple symptoms ASSESSMENT: 43 year old woman with generalized malaise for [...] is low, IgM and IgG both decreasing. was on heart monitor for frequent tachycardia and palpitations. Diagnosis of sleep apnea. This could address a lot of her symptoms but hasn't seemed to improve that much since May. PLAN: B12 shot today and every 4 weeks. Continue Folic acid. Follow up in 13 Weeks (virtual)- labs 1 week before. Request records from [facility] from PE/elevated d-dimer Frequent infections and low IGG level-discuss with dr. Joel HPI: CASE HISTORY: Reverse Chronological Order Currently 2021 ongoing and generalized malaise with elevated IgM. 2020 - lymph node biopsy from neck negative for malignancy. 2019 - had a respiratory illness with dyspnea, possible bronchitis, no cough Updated Visit, December 27, 2023: Returns for follow up. Had labs last month that showed decreasing IGM and low folic acid. She had run out of her folic acid pills and wasn't on it, but is now. She was in the ER for chest pains and her d-dimer was high and CT was negative for PE. Was put on xarelto for 3 weeks. Repeat scan was negative and she was told to stop the xarelto. C. Diff history and currently being tested. Seeing infectious disease. Also has some rare infection in her breast that ID does not want to treat. Updated Visit, September 09, 2023: Virtual Visit [...] lower lip done [address] [facility] - awaiting results. 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 She has been told they [...] PERFORMANCE STATUS: 0 PHYSICAL EXAMINATION: Vitals: BP 98/68 Pulse 89 Temp (Src) 97.7 (Temporal) Resp 16 Ht 5' 7.008 (1.70m) Wt 275 lb 2.2 oz (124.8kg) SpO2 98% LMP 05/18/2022 BMI 43.08 kg/(m^2). Body surface area is 2.43 meters squared. No exam. ALLERGIES: ALLERGIES Allergen Reactions Bactrim [...] thinks she just experienced side effects. MEDICATIONS: folic acid 1 mg tablet Take 1 tablet by mouth once daily. azaTHIOprine (IMURAN) 50 mg tablet TAKE 3 [...] capsule by mouth three times a day metoprolol tartrate, short acting, (LOPRESSOR) 50 mg tablet Take 50 mg by mouth twice daily. CPAP/BIPAP/OTHER Type .CPAPSettings into a note to see current settings/supplies/DME information. acetaminophen (TYLENOL) 500 mg tablet Take 1,000 mg by mouth. aspirin 81 mg chewable tablet Take 81 mg by mouth. ibuprofen (MOTRIN) 200 mg tablet Take 600 mg by mouth. LABORATORY VALUES: WBC (k/uL) Date Value 12/27/2023 14.93 (H) RBC (m/uL) Date Value 12/27/2023 4.29 Hemoglobin (g/dL) Date Value 12/27/2023 13.0 Hematocrit (%) Date Value 12/27/2023 39.6 MCV (fL) Date Value 12/27/2023 92.3 MCH (pg) Date Value 12/27/2023 30.3 MCHC (g/dL) Date Value 12/27/2023 32.8 RDW-CV (%) Date Value 12/27/2023 14.6 Platelet Count (k/uL) Date Value 12/27/2023 309 MPV (fL) Date Value 12/27/2023 9.8 Glucose (mg/dL) Date Value 11/24/2023 185 (H) BUN (mg/dL) Date Value 11/24/2023 12 Creatinine (mg/dL) Date Value 11/24/2023 0.74 Sodium (mmol/L) Date Value 11/24/2023 137 Potassium (mmol/L) Date Value 11/24/2023 4.2 Chloride (mmol/L) Date Value 11/24/2023 104 CO2 (mmol/L) Date Value 11/24/2023 24 Protein, Total (g/dL) Date Value 11/24/2023 7.1 Albumin (g/dL) Date Value 11/24/2023 4.1 Calcium, Total (mg/dL) Date Value 11/24/2023 9.9 Alkaline Phosphatase (U/L) Date Value 11/24/2023 69 Bilirubin, Total (mg/dL) Date Value 11/24/2023 0.2 AST (U/L) Date Value 11/24/2023 13 ALT (U/L) Date Value 11/24/2023 24 Cholesterol, Total (mg/dL) Date Value 05/21/2015 217 (H) Triglyceride (mg/dL) Date Value 05/21/2015 242 (H) DIAGNOSIS: No diagnosis found. PAST MEDICAL HISTORY No date: Chronic pain syndrome No date: Depression, recurrent (HCC) No date: Diffuse cystic mastopathy 11/09/2013: H/O mammogram No date: Hypotension, unspecified No date: Low back pain 03/04/2022: Megaloblastic anemia due to vitamin B12 deficiency No date: Mixed hyperlipidemia No date: Obesity, unspecified No date: Pain, hip 01/16/14: Physical exam, annual No date: Pilonidal cyst with abscess No date: Sacroiliitis (HCC) No date: Sciatica No date: Tobacco use disorder No date: Vitamin B12 deficiency No date: Vitamin D deficiency PAST SURGICAL HISTORY 2011 and 2012: PAST SURGICAL HISTORY OF Comment: pilonidal cyst 1990s: PAST SURGICAL HISTORY OF Comment: D & C 1990s: PAST SURGICAL HISTORY OF Comment: ablation Social History Tobacco Use Smoking status: [...] which included preparing to see the patient, [id number] patient care, completing clinical documentation, obtaining and/or reviewing separately obtained history, performing a medically appropriate examination, counseling and educating the patient/family/caregiver, ordering medications, tests, or procedures, communicating with other HCPs (not separately reported), independently interpreting results (not separately reported), communicating results to the patient/family/caregiver, and care coordination (not separately reported). Neda Narayanan PA-C Hematology and Oncology Services Provided at: [place], [place] CC: Madelaine Ferris MD [id number] [id number] documented in this encounter [facility] 12-27-2023 Note HNO ID: [id number] Author: NEDA NARAYANAN PA-C Service: ? Author Type: Physician Cork Tile Floor Layer Type: Progress Notes Filed: 12/27/2023 12:45 Note Text: NAME: Jones Haley NO.: [id number] DATE OF SERVICE: December 27, 2023 (Liz) Some elements in this clinic note that are critical to medical decision making have been carefully reviewed and included from a prior clinic note dated: September 09, 2023 (Marquis) Referring Provider: Dr. Madelaine Ferris Additional Clinicians involved in Jones Haley's care: DIAGNOSIS: Multiple symptoms ASSESSMENT: 43 year old woman with generalized malaise for [...] is low, IgM and IgG both decreasing. was on heart monitor for frequent tachycardia and palpitations. Diagnosis of sleep apnea. This could address a lot of her symptoms but hasn't seemed to improve that much since May. PLAN: B12 shot today and every 4 weeks. Continue Folic acid. Follow up in 13 Weeks (virtual)- labs 1 week before. Request records from [facility] from PE/elevated d-dimer Frequent infections and low IGG level-discuss with dr. Joel HPI: CASE HISTORY: Reverse Chronological Order Currently 2021 ongoing and generalized malaise with elevated IgM. 2020 - lymph node biopsy from neck negative for malignancy. 2019 - had a respiratory illness with dyspnea, possible bronchitis, no cough Updated Visit, December 27, 2023: Returns for follow up. Had labs last month that showed decreasing IGM and low folic acid. She had run out of her folic acid pills and wasn't on it, but is now. She was in the ER for chest pains and her d-dimer was high and CT was negative for PE. Was put on xarelto for 3 weeks. Repeat scan was negative and she was told to stop the xarelto. C. Diff history and currently being tested. Seeing infectious disease. Also has some rare infection in her breast that ID does not want to treat. Updated Visit, September 09, 2023: Virtual Visit [...] last couple of months. She remains on p (more content not included)... [facility] 12-13-2023 History of Presen t illness Narrative [facility] [...] laboratory parameters, disease state markers and outcomes. Thread Cutter Tender Assessment Patient confirmed: Yes Med/dose confirmed: Yes Missed doses: No Estimated days supply on hand: 1 Next cycle/dose due: 12/16/23 Copay amount: 0 Payment confirmed: Yes Delivery method: FedEx Signature required: Waived on patient request Delivery address: [address] [place] [address] Delivery date: 12/17/23 Questions or concerns for the pharmacist?: No Did you have any side effects believed to be related to this medication, that resulted in hospitalization?: No Current Outpatient Medications on File Prior to Visit Medication Sig folic acid 1 mg tablet Take 1 tablet by mouth once daily. azaTHIOprine (IMURAN) 50 mg tablet TAKE 3 [...] capsule by mouth three times a day metoprolol tartrate, short acting, (LOPRESSOR) 50 mg [...] facility-administered medications on file prior to visit. [facility] CLINICAL ASSESSMENT - INFLAMMATORY CONDITIONS V6: Assessment to use: Refill [facility] VACCINE INFORMATION [facility] TREATMENT PLAN INFORMATION Luda Conde CPhT [facility] [phone] documented in this encounter [facility] 12-13-2023 Note HNO ID: [id number] Author: AIDEE QUINTANILLA RPh Service: ? Author Type: ? Type: Progress Notes Filed: 12/15/2023 14:39 Note Text: [facility] Special[facility] Refill Assessment Medication(s): Benlysta Patient's [...] laboratory parameters, disease state markers and outcomes. Aidee Quintanilla PharmD Clinical Pharmacist, [employer] [facility] ; Pool: P [facility] Pool #: [id number] Thread Cutter Tender Assessment Patient confirmed: Yes Med/dose confirmed: Yes Missed doses: No Estimated days supply on hand: 1 Next cycle/dose due: 12/16/23 Copay amount: 0 Payment confirmed: Yes Delivery method: FedEx Signature required: Waived on patient request Delivery address: [address] [place] [address] Delivery date: 12/17/23 Questions or concerns for the pharmacist?: No Did you have any side effects believed to be related to this medication, that resulted in hospitalization?: No Current Outpatient Medications on File Prior to Visit Medication Sig folic acid 1 mg tablet Take 1 tablet by mouth once daily. azaTHIOprine (IMURAN) 50 mg tablet TAKE 3 [...] capsule by mouth three times a day metoprolol tartrate, short acting, (LOPRESSOR) 50 mg [...] facility-administered medications on file prior to visit. [facility] CLINICAL ASSESSMENT - INFLAMMATORY CONDITIONS V6: Assessment to use: Refill Assessment of injection issues: Yes Infection screening, including annual TB assessment when applicable to medication: Yes Current medication list (including drug interaction assessment): Yes Experience of adverse reactions to the medication: Yes [facility] VACCINE INFORMATION: Display Vaccine Information: Yes Date of influenza vaccination reminder: 03/04/2023 Date of most recent vaccination assessment: 03/04/2023 [facility] TREATMENT PLAN INFORMATION: Display Treatment Plan Information: Yes Treatment Plan Information: M32.19 - Systemic lupus erythematosus with other organ involvement Benlysta - Inject 200mg (1 pen) subcutaneously once weekly Estimated Treatment Duration: Until loss of efficacy and/or no longer tolerated. Luda Conde contact lens edge buffer [facility] [phone] [facility] 11-29-2023 Nurse Note Patient Identification confirmed: yes. Injection given and documented on MAR per provider order. Stacy Gutiérrez MA [facility] 11-29-2023 Nurse Note Patient Identification confirmed: yes. Injection given and documented on MAR per provider order. Stacy Gutiérrez MA documented in this encounter [facility] 11-26-2023 Telephone encounter Note Please sign pended script Maryam Schneider RN [facility] 11-26-2023 Miscellaneous Notes Please sign pended script Maryam Schneider RN documented in this encounter [facility] 11-15-2023 History of Presen t illness [...] laboratory parameters, disease state markers and outcomes. Thread Cutter Tender Assessment Patient confirmed: Yes Med/dose confirmed: Yes Missed doses: No Estimated days supply on hand: 1 Next cycle/dose due: 11/18/23 Copay amount: 0 Payment confirmed: Yes Delivery method: FedEx Signature required: Waived on patient request Delivery address: [address] [place] [address] Delivery date: 11/17/23 Questions or concerns for [...] facility-administered medications on file prior to visit. [facility] Visit Assessment - Inflammatory [...] monitoring (Orencia): N/A Assessment of efficacy: Yes Roland CamarilloD Clinical Pharmacist, [employer] [facility] ; Pool: P [facility] Pool #: [id number] documented in this encounter [facility] 11-15-2023 Note HNO ID: [id number] Author: AIDEE QUINTANILLA RPh Service: ? Author Type: Pharmacist Type: Progress Notes Filed: 11/15/2023 13:48 Note Text: [facility] Refill Assessment Medication(s): Benlysta Patient's [...] laboratory parameters, disease state markers and outcomes. Thread Cutter Tender Assessment Patient confirmed: Yes Med/dose confirmed: Yes Missed doses: No Estimated days supply on hand: 1 Next cycle/dose due: 11/18/23 Copay amount: 0 Payment confirmed: Yes Delivery method: FedEx Signature required: Waived on patient request Delivery address: [address] [place] [address] Delivery date: 11/17/23 Questions or concerns for [...] facility-administered medications on file prior to visit. [facility] Visit Assessment - Inflammatory [...] (Orencia): N/A Assessment of efficacy: Yes Aidee Quintanilla, RolandD Clinical Pharmacist, [employer] [facility] ; Pool: P [facility] Pool #: [id number] [facility] 11-11-2023 Telephone encounter Note Notify patient medication sent as requested Thank you. Patient's request for medication is as follows: Requested Prescriptions Pending Prescriptions Disp Refills azaTHIOprine (IMURAN) 50 mg tablet 270 tablet 1 Sig: TAKE 3 TABLETS BY MOUTH DAILY WITH FOOD. HOLD IF ON ANTIBIOTICS OR ILL. Prescription(s) as above. Please process accordingly. Lynne Ni MD [facility] 11-11-2023 Miscellaneous Notes Notify patient medication [...] total serum IgM COMPREHENSIVE METABOLIC PANEL [SQCMP] 07/04/1609/08/24 09/09/23 Auth. provider: Jose Najera MD Assoc. [...] total serum IgM SEDIMENTATION RATE, WESTERGREN [SQWSR] 07/04/1603/02/24 09/09/23 Auth. provider: Jose Najera MD Assoc. diagnoses: Megaloblastic anemia due to vitamin B12 deficiency, High total serum IgM documented in this encounter [facility] 11-11-2023 Telephone encounter Note Images from [...] vitamin B12 deficiency, High total serum IgM [facility] 10-28-2023 Telephone encounter Note Pt read [employer] message. [facility] 10-28-2023 Miscellaneous Notes Pt read [employer] message. Please call patient. Thank you for [...] symptoms. Hope you feel better soon! Warm regards, :) documented in this encounter [facility] 10-28-2023 Telephone encounter Note Please call [...] feel better soon! Warm Dr.Tsai oziel :) [facility] 10-27-2023 Nurse Note Patient Identification confirmed: yes. Injection given and documented on JUL per provider order. Margret Cuenca MA [facility] 10-27-2023 Nurse Note Patient Identification confirmed: yes. Injection given and documented on JUL per provider order. Margret Cuenca MA documented in this encounter [facility] 10-12-2023 Note HNO ID: [id number] Author: AIDEE QUINTANILLA RPh Service: ? Author Type: ? Type: Progress Notes Filed: 10/15/2023 17:43 Note Text: [facility] Refill Assessment Medication(s): Benlysta Patient's [...] laboratory parameters, disease state markers and outcomes. Date of Jones Torres hugo's last Rheumatology office visit: 10/05/23 Next appointment date: None Last labs: 08/31/23 Last TB test: TB Result Date Value Ref Range Status 03/05/2021 Negative Negative Final Aidee Quintanilla PharmD Clinical Pharmacist, [employer] [facility] ; Pool: P [facility] Pool #: [id number] Thread Cutter Tender Assessment Patient confirmed: Yes Med/dose confirmed: Yes Supplies needed: No supplies needed Missed doses: No Estimated days supply on hand: 1 Next cycle/dose due: 10/21/23 Copay amount: 0 Delivery method: FedEx Signature required: Waived on patient request Delivery address: [address] [place] [address] Delivery date: 10/21/23 Questions or concerns for the pharmacist?: No Current Outpatient Medications on File Prior to Visit Medication Sig belimumab (BENLYSTA) 200 mg/mL auto-injector Inject 200mg [...] facility-administered medications on file prior to visit. [facility] Visit Assessment - Inflammatory [...] monitoring (Orencia): N/A Assessment of efficacy: Yes Carlene Rendon CPhT [facility], Inflammatory P: [phone] F: [phone] [facility] 10-05-2023 History of Presen t illness Narrative [...] visit. Either the patient or their legal rental sales representative has been informed of the [...] measures, may consider osteoporosis treatment if on assisted steroids/abnormal bmd, take vitamin D script if [...] neurology/on metoprolol for POTs, avoid aggravating triggers, assisted pain recommendations per primary care provider/pain clinic/patient [...] neurology/on metoprolol for POTs, avoid aggravating triggers, 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 pain recommendations per primary care provider/pain clinic/patient [...] Due for eye exam. Labs sent to [facility]/completed in 06/2021 (no results faxed to office, [...] vomiting, night sweats, scalp tenderness, visual changes, ehrnandez, bowel/bladder changes, weight changes or other complaints. [...] COVID-19 original vaccine, age 12+ yr, monovalent (Viratech - PURPLE TOP) 09/28/2020 10/19/2020 05/26/2021 COVID-19 vaccine, age 12+ yr, 2022- season (DeciZium-BIOVidPay) 02/23/2023 COVID-19 vaccine, age 12+ yr, bivalent (Viratech) 02/08/2022 Pneumovax no Flu shot no Tetanus [...] (33);NL cbc, cmp, negative hla b27; [facility] [place] 06/2021 low vitamin D 16, vitamin b12-307;high [...] measures, may consider osteoporosis treatment if on assisted steroids/abnormal bmd, take vitamin D script once [...] neurology/on metoprolol for POTs, avoid aggravating triggers, 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 pain recommendations per primary care provider/pain clinic/patient [...] (200mg) daily with a meal Please see support representative every 6-12months while on Hydroxychloroquine. Start 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 [...] touching your toes, sit-ups, using row machine assisted pain recommendations per primary care provider/pain clinic [...] video & audio (virtual) or phone or [id number] patient care, completing clinical documentation, obtaining and/or [...] Workers' Compensation? No Do you need an park interpreter? No [facility] MYCHART ZOOM MESSAGE Question 2023 11:04 PM [...] (range: 0 - 100) 5 2 4 [facility] SLAQ QUESTIONNAIRE Question 2023 11:10 PM EDT [...] SLAQ Score (range: 0 - 47) 15 [facility] PROVIDER UNDERSTANDING CURRENT HEALTH RHEUMATOLOGY Question 2023 11:10 PM EDT - Filed by Patient These questions will help my provider understand my health Strongly Agree [facility] DOCUMENT/IMAGE UPLOAD Question 2023 11:10 PM EDT [...] (WITHIN +/- 5) documented in this encounter [facility] 10-05-2023 Note HNO ID: [id number] Author: LYNNE NI MD Service: ? Author Type: Physician Type: Progress Notes Filed: 10/05/2023 08:28 Note Text: THIS IS A AMBULATORY VIRTUAL VISIT Patient has verbally agreed/consented to this virtual encounter, not originating from a related Evaluation AND Management service provided within the previous 7 days. NOTE: Cannot be used if an Evaluation AND Management service or procedure is planned within the next 24 hours. I have communicated my name and active licensure. The patient's identity and physical location were verified at the time of this visit. Either the patient or their legal rental sales representative has been informed of the [...] timidus improved with plaquenil. Hidradenitis suppurativa left AND right medial thigh no active lesions. 06/10/23 [...] had 3good days/thinking benlysta working. Reports pain /. Has minimal AM stiffness. Feels safe at [...] measures, may consider osteoporosis treatment if on 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 steroids/abnormal bmd, take vitamin D script if [...] neurology/on metoprolol for POTs, avoid aggravating triggers, 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 pain recommendations per primary care provider/pain clinic/patient [...] current pain in scalp/hair, legs, arms, wrists (more content not included)... [facility] 09-30-2023 Nurse Note Patient Identification confirmed: yes. Injection given and documented on JUL per provider order. Renea Schneider MA [facility] 09-22-2023 Evaluation note Authored September 22, [...] switch omeprazole to pantoprazole and monitor symptoms [facility] Work Phone: 1(144) 799-156404-22-2024 NoteHNO ID: [id number] Author: AIDEE QUINTANILLA RPh Service: ? Author Type: ? Type: Progress Notes Filed: 09/16/2023 11:16 Note Text: [facility] Refill Assessment Medication(s): Benlysta Patient's [...] laboratory parameters, disease state markers and outcomes. Aidee Quintanilla, [place]el[place] Clinical Pharmacist, [employer] [facility] ; Pool: P [facility] Pool #: [id number] Thread Cutter Tender Assessment Patient confirmed: Yes Med/dose confirmed: Yes Supplies needed: Alcohol swabs, Bandages Missed doses: No Estimated days supply on hand: 1 Next cycle/dose due: 09/16/23 Copay amount: 0 Payment confirmed: Yes Delivery method: FedEx Signature required: Waived on patient request Delivery address: [address] [place] [address] Delivery date: 09/21/23 Questions or concerns for the pharmacist?: No Current Outpatient Medications on File Prior to Visit Medication Sig ergocalciferol 50,000 unit capsule (VITAMIN [...] facility-administered medications on file prior to visit. [facility] Visit Assessment - Inflammatory Conditions: Ivent complete: No Assessment to use: Refill Vaccination Assessment: Date [...] monitoring (Orencia): N/A Assessment of efficacy: Yes Carlene Rendon CPhT [facility], Inflammatory P: [phone] F: [phone]18[facility] Instructions * Patient Instructions* Jose Najera MD - 09/09/2023 4:47 PM EDT Follow up in 13 Weeks - labs 1 week before. B12 shot every 4 weeks. Continue Folic acid. documented in this [facility] History of Present illness Narrative* Jose Najera MD - 09/09/2023 4:30 PM EDT NAME: Jones Haley CLINIC NO.: [id number] DATE OF SERVICE: September 09, 2023 (Marquis) Some elements in this clinic note that are critical to medical decision making have been carefully reviewed and included from a prior clinic note dated: June 10, 2023 (Marquis) Referring Provider: Dr. Madelaine Ferris Additional Clinicians involved in Jones Haley's care: VIRTUAL VISIT PROGRESS NOTE This is a virtual visit using [employer] Video Call. It required patient- provider interaction for the medical decision making as documented below. I have communicated my name and active licensure. The patient's identity and physical location wereverified at the time of this visit. Either the patient or their legal rental sales representative has been informed of the [...] lower lip done [address] [facility] - awaiting results. B12 helps especially [...] Updated Visit, August 27, 2022: Jones Melissa De Pazhugo returns for follow-up and B12 injection. She has missed a few B12 injections. Shefollows with multiple doctors including and cvt tech, rn medicare, computer engineering professor and PCP. She has been told they [...] [facility] Hematology and Oncology Services Provided at: [place], [place] CC: Madelaine Ferris MD [address] [place] [address] documented in this encounter[facility] NoteHNO ID: [id number] Author: JOSE NAJERA MD Service: ? Author Type: Physician Type: Progress Notes Filed: 09/11/2023 13:38 Note Text: NAME: Tera Jones [facility] NO.: [id number] DATE OF SERVICE: September 09, 2023 (Marquis) Some elements in this clinic note that are critical to medical decision making have been carefully reviewed and included from a prior clinic note dated: June 10, 2023 (Marquis) Referring Provider: Dr. Madelaine Ferris Additional Clinicians involved in Jones Haley's care: VIRTUAL VISIT PROGRESS NOTE This is a virtual visit using [employer] Video Call. It required patient-provider interaction for the medical decision making as documented below. I have communicated my name and active licensure. The patient's identity and physical location were verified at the time of this visit. Either the patient or their legal rental sales representative has been informed of the [...] recent labs Assessment: No diagnosis found. Plan: Patien (more content not included)...[facility]04-15-2024 Miscellaneous Notes* Telephone Encounter - Maynor Bryson MA - 09/06/2023 7:21 AM EDT patient has viewed the [employer] message per [employer]. * Telephone Encounter - Lynne Ni MD - 09/04/2023 6:30 PM EDT Please Call patient if [employer] note not read to review results/released to [...] accordingly. Lynne Ni MD documented in this encounterOhio[facility] Nurse Note* Margret Cuenca MA - 08/31/2023 10:35 AM EDT Patient Identification confirmed: yes. Injection given and documented on MAR per provider order. Margret Cuenca MA documented in this encounterOhio[facility] Nurse Note* Renea Schneider MA - 09/30/2023 10:53 AM EDT Patient Identification confirmed: yes. Injection given and documented on MAR per provider order. Renea Schneider MA documented in this encounterOhio[facility]-2024 NoteHNO ID: [id number] Author: AIDEE QUINTANILLA RPh Service: ? Author Type: ? Type: Progress Notes Filed: 08/16/2023 16:44 Note Text: [facility] Refill Assessment Medication(s): Benlysta Patient's [...] laboratory parameters, disease state markers and outcomes. Aidee Quintanilla PharmD Clinical Pharmacist, [employer] [facility] ; Pool: P [facility] Pool #: [id number] Thread Cutter Tender Assessment Patient confirmed: Yes Med/dose confirmed: Yes Supplies needed: Alcohol swabs, Bandages Missed doses: No Estimated days supply on hand: 1 Next cycle/dose due: 08/19/23 Copay amount: 0 Payment confirmed: Yes Delivery method: FedEx Signature required: Waived on patient request Delivery address: [address] [address] Delivery date: 08/19/23 Questions or concerns for the pharmacist?: No Current Outpatient Medications on File Prior to Visit Medication Sig ergocalciferol 50,000 unit capsule (VITAMIN D2, DRISDOL) (take by mouth with food 3times a week, ONE CAPSULE ON Mondays, Fridays) FOR A TOTAL OF 10 WEEKS, then once a week thereafter. Phentermine HCl 37.5 mg tablet Take 1 tablet by mouth daily before breakfast for 90 days. topiramate (TOPAMAX) 25 mg tablet Take 1 tablet by mouth two times a day. predniSONE (DELTASONE) 10 mg tablet Take 40mg daily x 5days, then decrease 5mg every 5days until 10mg daily thereafter pregabalin (LYRICA) 75 mg capsule take 1 capsule by mouth three times a day azaTHIOprine (IMURAN) 50 mg tablet TAKE 3 TABLETS BY MOUTH DAILY WITH FOOD. HOLD IF ON ANTIBIOTICS OR ILL. belimumab (BENLYSTA) 200 mg/mL auto-injector Inject 200mg [...] facility-administered medications on file prior to visit. [facility] Visit Assessment - Inflammatory Conditions: Ivent complete: No Assessment to use: Refill Vaccination Assessment: Date [...] monitoring (Orencia): N/A Assessment of efficacy: Yes Carlene Rendon CPhT [facility], Inflammatory P: [phone] F: [phone]03-14-2024 Nurse Note* Margret Cuenca - 08/05/2023 11:16 AM EDT Patient Identification confirmed: yes. Injection given and documented on JUL per provider order. Margret Cuenca documented in this encounterOhiohealth [facility]-2024 NoteHNO ID: [id number] Author: AIDEE QUINTANILLA RPh Service: ? Author Type: ? Type: Progress Notes Filed: 07/16/2023 15:09 Note Text: [facility] Refill Assessment Medication(s): Benlysta Patient's [...] laboratory parameters, disease state markers and outcomes. Aidee Quintanilla PharmD Clinical Pharmacist, [employer] [facility] ; Pool: P [facility] Pool #: [id number] Thread Cutter Tender Assessment Patient confirmed: Yes Med/dose confirmed: Yes Supplies needed: Alcohol swabs, Bandages Missed doses: No Estimated days supply on hand: 1 Next cycle/dose due: 07/22/23 Copay amount: 0 Delivery method: FedEx Signature required: Waived on patient request Delivery address: [address] [place] [id number] Delivery date: 07/20/23 Questions or concerns for the pharmacist?: No [facility] Visit Assessment - Inflammatory Conditions: Ivent complete: No Assessment to use: Refill Vaccination Assessment: Date [...] monitoring (Orencia): N/A Assessment of efficacy: Yes Lolis Gibbs (Erector Operator)[facility]02-20-2024 Nurse Note* Margret Cuenca - 07/13/2023 12:01 PM EST Patient Identification confirmed: yes. Injection given and documented on JUL per provider order. Margret Cuenca documented in this encounterOhiohealth [facility] History of Present illness Narrative* Lois [...] and is being cared for at the [facility] utilizing steroids, Plaquenil and injectable medic ation(Benlystal). The patient record indicating having had cardiac catheterization in [place] 3 years ago which was normal. I have the report available for my review. [facility] [...] lupus being treated by rheumatology at the [facility] on steroids, Plaquenil and monoclonal antibody 5-sleep [...] , Rfl: ergocalciferol (Vitamin D-2) 1.25 MG (95863 UT) capsule, Take 1 capsule (50,000 Units) [...] Scribe Attestation By signing my name below, IsharronrletMaikol land attest that this documentation has been prepared [...] exam, discussion and plan. documented in this [facility] Work Phone: 1(841) 542-605702-20-2024 Instructions* Patient Instructions* Lila Tejeda LPN - [...] time of your visit. documented in this [facility] Work Phone: 1(350) 450-484102-13-2024 History of Present illness Narrative* Juan Luis [...] , Rfl: ergocalciferol (Vitamin D2) 1.25 MG (00961 UT) capsule, Take 50,000 Units by mouth [...] Chronic laryngopharyngitis COVID-19 vaccine administered x 2 (ADIKTIVO) History of removal of cyst 2013 tailbone [...] reflexes: Stu's absent. Ankle clonus absent. Coordination Owjumw-oy-ntxi, rapid alternating movements and uhqh-hi-tzco normal bilaterally without dysmetria. Gait Normal casual, [...] Lyrica 100 mg TID. She is on [id number] mg once daily. Increase prednisone 10 mg BID for 10 days. documented in this encounterSaint Alexius HospitalMjvsjneejh37-56-1925 NoteHNO ID: [id number] Author: AIDEE QUINTANILLA RPh Service: ? Author Type: ? Type: Progress Notes Filed: 06/16/2023 16:17 Note Text: [facility] Refill Assessment Medication(s): Benlysta Patient's [...] laboratory parameters, disease state markers and outcomes. Roland CamarilloD Clinical Pharmacist, [employer] [facility] ; Pool: P [facility] Pool #: [id number] Thread Cutter Tender Assessment Patient confirmed: Yes Med/dose confirmed: Yes Supplies needed: Alcohol swabs, Bandages Missed doses: No Estimated days supply on hand: 3 Next cycle/dose due: 06/17/23 Copay amount: 0 Payment confirmed: Yes Delivery method: FedEx Signature required: Waived on patient request Delivery address: [address] [place] [address] Delivery date: 06/18/23 Questions or concerns for the pharmacist?: No [facility] Visit Assessment - Inflammatory Conditions: Ivent complete: No Assessment to use: Refill Vaccination Assessment: Date [...] monitoring (Orencia): N/A Assessment of efficacy: Yes Carlene Rendon CPhT [facility], Inflammatory P: [phone] F: [phone]01-18-2024 NoteHNO ID: [id number] Author: JOSE NAJERA MD Service: ? Author Type: Physician Type: Progress Notes Filed: 06/12/2023 18:25 Note Text: NAME: Tera Jones [facility] NO.: [id number] DATE OF SERVICE: June 10, 2023 (Marquis) Some elements in this clinic note that are critical to medical decision making have been carefully reviewed and included from a prior clinic note dated: April 16, 2023 (Bob). Referring Provider: Dr. Madelaine Ferris Additional Clinicians [...] dyspnea, possible bronchitis, no cough Updated Visit, June 10, 2023: Jones returns [...] lower lip done [address] [facility] - awaiting results. 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 She has been told they are thinking her problems are related to lupus and/or fibromyalgia. She is (more content not included)...[facility]01-17-2024 History of Present illness Narrative* Michelle Britton, PREPARATION SUPERVISOR FREEZING-STRATEGIC SOURCING CONSULTANT - 06/09/2023 8:30 AM EST Jones Haley is a 42 y.o. female that presents to the office today for new patient evaluation asself referral for palpitations and elevated heart rates. She has a PMH of HTN, HLD, tachycardia, anemia, JOSE RAFAEL with CPAP compliance, lupus, autonomic dysfunction, arthritis, chronic back pain. She has undergone cardiac workup in the past in [place] as noted below. She also states that she follows withNeurology for possible POTS syndrome. Admits to daily tobacco use, 1 pack of cigarettes per day. Denies vaping, ETOH, recreational drugs. Admits to drinking approximately 1 pot of coffee per day. Denies daily exercise. 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 She is in a assisted frooly ship and has children. Family history negative [...] , Rfl: ergocalciferol (Vitamin D-2) 1.25 MG (62408 UT) capsule, Take 1 capsule (50,000 Units) [...] Anemia, unspecified Anxiety Autonomic dysfunction Depression, recurrent ([facility]) Discoid lupus erythematosus Chronic bilateral low back pain with bilateral sciatica Hyperlipidemia Obesity, Class III, BMI 40-49.9 (morbid obesity) ([facility]) Obstructive sleep apnea syndrome Arthritis Tachycardia [...] to prepare this document. documented in this [facility] Work Phone: 1(839) 274-102001-09-2024 NoteHNO ID: [id number] Author: YASMEEN LEBLANC APRN.STRATEGIC SOURCING CONSULTANT Service: ? Author Type: Nurse Practitioner Type: Progress Notes Filed: 06/01/2023 10:43 Note Text: Telemedicine Visit - Distance Health Virtual Visit Note Patient seen on Presentigohart Zoom Video Visit platform. Location of patient: [place] Madelaine Ferris MD I have communicated my name and active licensure. The patient's identity and physical location were verified at the time of this visit. Either the patient or their legal rental sales representative has been informed of the risks and benefits of -- and alternatives to -- treatment through a remote evaluation and consents to proceed with the evaluation remotely. History of Present Illness Jones Haley is a 42 year old year old female who presents for the past 1 week(s) with symptoms that are: Worsening Nov treated for a similar skin issue INVOLVING LEFT THIGH ABSCESS w/ abxS KEFLEX AND DOXY FOR SUSPECTED MRSA, RESOLVED BUT PT EXPERIENCED SOME HEAD PRESSURE 4 DAYS AGO Seen by [employer] FOR NEW ABSCESS ON RIGHT THIGH AND GIVEN DOXY AND KEFLEX ONLY TAKING KEFLEX FOR 4 DAYS BC DOXY GIVES HER HEAD PRESSURE DENIES FEVER CHILLS ABSCESS LOCATED ON MID-UPPER INNER THIGH AREA/ RED, LITTLE WARM TO TOUCH, NO CHANGE IN REDNESS SOME DARK RED/ PURPLE BRUISE, FIRM SURROUNDING AREA AND MIDDLE LESS FIRM BUT NO ACTIVE DRAINAGE OR STREAKING PAST MEDICAL HISTORY Diagnosis Date Chronic pain [...] pilonidal cyst PAST SURGICAL HISTORY OF D AND C PAST SURGICAL HISTORY OF ablation FAMILY [...] of 18 Current Outpatient Medications Medication Sig Phentermine HCl 37.5 mg tablet Take 1 tablet by mouth daily before breakfast for 90 days. topiramate (TOPAMAX) 25 mg tablet Take 1 tablet by mouth two times a day. predniSONE (DELTASONE) 10 mg tablet Take 40mg daily x 5days, then decrease 5mg every 5days until 10mg daily thereafter pregabalin (LYRICA) 75 mg capsule take 1 capsule by mouth three times a day azaTHIOprine (IMURAN) 50 mg tablet TAKE 3 TABLETS BY MOUTH DAILY WITH FOOD. HOLD IF ON ANTIBIOTICS OR ILL. belimumab (BENLYSTA) 200 mg/mL auto-injector Inject 200mg (1 pen) subcutaneously once weekly ergocalciferol 50,000 unit capsule (VITAMIN D2, DRISDOL) (take by mouth with food 3times a week, ONE CAPSULE ON Mondays, Fridays) FOR A TOTAL OF 8 WEEKS, then once a week thereafter. folic acid 1 mg tablet TAKE 1 [...] thinks she just experienced side effects. Trimethoprim Ot (more content not included)...[facility] 05-26-2023 Instructions* Patient Instructions* Christie Phan MD - 05/26/2023 5:43 PM EST Images from the original note were not included. https://[employer]/tofu-bolognese/ https://nutritionstudies.org/amk-hx-nqytemgjz-kiqrnkud-li-diubq-j-shiav-uohb-randee uw-tawdv-nqbxcdfzv/ https://www.SEJENT/blog/plantbasedkids https://WegoWise/qqzmm-ynjai-oiva-for-kids/ https://Bonafide/nvg-kh-aaqleqoavi-tgyu-orxm-on-i-zdtii-avndb-diet/ WHAT TO EAT? Breakfast: Overnight Oats Base ingredients: 1/3 cup rolled oats, 1/3 cup plain almond milk, 1tsp kyle seeds. Optional add-ins: cinnamon, flax seeds, honey or maple syrup, nut butter, chopped nuts. Toppings: Any fresh fruit chopped. Mix together and place in refrigerator. Can make 5 at a time for the whole week. Homemade fresh oatmeal. Can also make in the crockpot. Ugandan muffin/almond butter topped with fresh berries Ugandan muffin, cooked egg/egg white, tomato, thin slice kosovan cheese Fresh berries, hard boiled egg, whole wheat toast Plain yogurt topped with berries, unsalted nuts, drizzle of honey Whole grain toast/Ugandan muffin topped with mashed avocado and tomatoes Lunch: Dinner leftovers packed in Tupperware, side of fruit Salad mixture topped with a protein (chick breast/tuna/hard boiled egg/beans), dressing and side offruit Dinner - Refer to plate senior media planner pictures to help select foods and portion ratios of protein, vegetables/starches. Keep it simple and rotate your favorite meals. Sheet nix meals Soups Grilled protein/vegetables/side of starch (plate senior media planner picture) Stir can with protein, mixed vegetables, and riced cauliflower or portion controlled whole grain rice. Make your own bowls - Micronesian/Estonian/ theme Norene with Zoodles (spiralized vegetable noodles). Roasted vegetable wraps Alter traditional recipes to reflect HIGH QUALITY ingredients in the right QUANTITIES. Snacks - portion controlled: Raw veggies (can have with hummus, mashed avocado, salsa). Unsalted nuts Fruit (1 serving). (optional side of peanut butter) Air pop popcorn [place] and low fat kosovan cheese rolled up String cheese Protein balls [...] baked potato, sprouted grain bread, chick peas https://www.HomeRun.com/article/6573568/hjrzeqtsnjkii-cpnj-ycem-for-beginners / https://www.HomeRun.com/category/4274/isablaryuwkhw-ztal-lmbgoa/ https://www.HomeRun.com/category/4300/ytciwhfxphmsg-frzb-knku-plans/ My current favorite cookbooks are documented in this encounterOhiohealth [facility]. [facility]01-03-2024 History of Present illness Narrative* Christie Phan MD - 05/26/2023 5:00 PM EST Images from the original note were not included. [facility] Follow-Up Appointment [...] refer to nutrition to work towards a PB diet Plan Diagnoses and all orders for [...] the date of the service which included tztx-ec-tmnk patient care, completing clinical documentation, performing a medically appropriate examination, counseling and educating the patient/family/caregiver, and ordering medications, tests, or procedures. Christie Phan MD, MA, [facility] Lifestyle Medicine Specialist documented in this encounterOhiohealth Arthur [facility]. [facility]01-03-2024 NoteHNO ID: [id number] Author: CHRISTIE PHAN MD Service: ? Author Type: Physician Type: Progress Notes Filed: 05/30/2023 22:33 Note Text: [facility] Follow-Up Appointment Assessment Jones Haley [...] the date of the service which included uwik-oe-mufo patient care, completing clinical documentation, performing a medically appropriate examination, counseling and educating the patient/family/caregiver, and ordering medications, tests, or procedures. Christie Phan MD, MA, [facility] Lifestyle Medicine SpecialistKindred Hospital [facility]12-27-2023 NoteHNO ID: [id number] Author: Carlene Rendon Service: ? Author Type: ? Type: Progress Notes Filed: 05/19/2023 1:47 PM Note Text: [facility] Refill Assessment Medication(s): Benlysta Patient's [...] laboratory parameters, disease state markers and outcomes. Aidee Quintanilla PharmD Clinical Pharmacist, [employer] [facility] ; Pool: P [facility] Pool #: [id number] Thread Cutter Tender Assessment Patient confirmed: Yes Med/dose confirmed: Yes Supplies needed: Alcohol swabs, Bandages Missed doses: No Estimated days supply on hand: 1 Next cycle/dose due: 05/20/23 Copay amount: 0 Payment confirmed: Yes Delivery method: FedEx Signature required: Waived on patient request Delivery address: [address] [place] [address] Delivery date: 05/21/23 Questions or concerns for the pharmacist?: No [facility] Visit Assessment - Inflammatory Conditions: Ivent complete: No Assessment to use: Refill Vaccination Assessment: Date [...] monitoring (Orencia): N/A Assessment of efficacy: Yes Carlene Rendon CPhT [facility], Inflammatory P: [phone] F: [phone] Health [facility]12-04-2023 Miscellaneous Notes* Telephone Encounter - Renate Lawrence MA - 04/26/2023 5:26 PM EST Medication pending with new pharmacy information. documented in this encounterOhiohealth Arthur [facility]12-04-2023 NoteHNO ID: [id number] Author: Christie Phan MD Service: ? Author Type: Physician Type: Progress Notes Filed: 04/26/2023 6:05 PM Note Text: [facility] Virtual Follow-Up Appointment Assessment Jones [...] times a day. F/U: 4 weeks SUBJECTIVE: ?It?s great to see you again. I want to confirm you are in [place] or [place] today, and check in to confirm your consent to be seen virtually.? Jones Haley is a 42 year old [...] the date of the service which included imfh-vh-xsng patient care, completing clinical documentation, performing a medically appropriate examination, counseling and educating the patient/family/caregiver, and ordering medications, tests, or procedures. I have communicated my name and active licensure. The patient's identity and physical location were verified at the time of this visit. Either the patient or their legal rental sales representative has been informed of the risks and benefits of -- and alternatives to -- treatment through a remote evaluation and consents to proceed with the evaluation remotely. Christie Phan MD, MA, [facility] Lifestyle Medicine SpecialistKindred Hospital [facility]12-04-2023 History of Present illness Narrative* Christie Phan MD - 04/26/2023 4:15 PM EST Images from the original note were not included. [facility] Virtual Follow-Up [...] the date of the service which included jfgk-bd-kahp patient care, completing clinical documentation, performing a medically appropriate examination, counseling and educating the patient/family/caregiver, and ordering medications, tests, or procedures. I have communicated my name and active licensure. The patient's identity and physical location wereverified at the time of this visit. Either the patient or their legal rental sales representative has been informed of the risks and benefits of -- and alternatives to -- treatment through a remote evaluation andconsents to proceed with the evaluation remotely. Christie Phan MD, MA, [facility] Lifestyle Medicine Specialist documented in this encounterOhiohealth Arthur [facility]12-04-2023 Nurse Note* Renate Lawrence MA - 04/26/2023 2:46 PM EST Spoke to Jones Haley, confirmed patient is registered on [employer] and is prepared for their appointment. Confirmed the patient has updated medications, allergies, and questionnaires via [employer]. Informed patient if there is an issue with the connection, provider will send the patient a secure link. If provider is running late, patient should remain connected to the visit. Patient verbalized understanding. documented in this encounterOhiohealth Arthur [facility]12-04-2023 NoteHNO ID: [id number] Author: Luna Emanuel Service: ? Author Type: ? Type: Progress Notes Filed: 04/26/2023 6:01 PM Note Text: [facility] Refill Assessment Medication(s): Benlysta Patient's [...] laboratory parameters, disease state markers and outcomes. Belimumab (Benlysta) - Monoclonal Antibody Monitor during and for an appropriate time after administration for hypersensitivity and/or infusion reactions; infections; worsening of depression, mood changes, or suicidal thoughts. Depression: Not at risk (02/18/2023) PHQ-2 PHQ-2 Score: 0 Current Outpatient Medications on File Prior to Visit Medication Sig topiramate (TOPAMAX) 25 mg tablet Take 1 tablet by mouth two times a day. Phentermine HCl 37.5 mg tablet Take 1 tablet by mouth daily before breakfast for 30 days. pregabalin (LYRICA) 75 mg capsule take 1 capsule by mouth three times a day azaTHIOprine (IMURAN) 50 mg tablet TAKE 3 TABLETS BY MOUTH DAILY WITH FOOD. HOLD IF ON ANTIBIOTICS OR ILL. belimumab (BENLYSTA) 200 mg/mL auto-injector Inject 200mg (1 pen) subcutaneously once weekly ergocalciferol 50,000 unit capsule (VITAMIN D2, DRISDOL) (take by mouth with food 3times a week, ONE CAPSULE ON Mondays, Fridays) FOR A TOTAL OF 8 WEEKS, then once a week thereafter. folic acid 1 mg tablet TAKE 1 TABLET BY MOUTH EVERY DAY hydrOXYchloroQUINE (PLAQUENIL) 200 mg tablet TAKE 1 TAB TWICE A DAY WITH FOOD *SUNSCREEN WHILE OUTDOORS/OPHTHAMOLOGY EVERY 6-12 MONTHS WHILE ON* predniSONE (DELTASONE) 10 mg tablet Take 40mg daily x 5days, then decrease 5mg every 5days until 10mg daily thereafter metoprolol tartrate, short acting, (LOPRESSOR) 50 mg [...] facility-administered medications on file prior to visit. ALLERGIES Allergen Reactions Bactrim [Sulfametho* GI [...] just thinks she just experienced side effects. Canceled Appointments: Future Appointments Date Time Provider Department Center 05/13/2023 11:00 AM Hoda Marshall Nurse Dre [facility] 05/19/2023 10:00 AM Pharmacist, Specialty[facility] 2 [facility] None 06/03/2023 11:00 AM LAB [facility] 06/10/2023 11:00 AM Jose Najera MD [facility] 06/10/2023 11:15 AM Hoda Marshall Nurse Dre [facility] 08/12/2023 9:00 AM Lynne Ni MD [facility] Nickie Schroeder [facility] Clinical Pharmacist - [employer]: Allergy, Immunology, and Inflammatory [facility] ; Pool: P [facility] Pool #: [id number] Thread Cutter Tender Assessment Patient confirmed: Yes Med/dose confirmed: Yes Supplies needed: No supplies needed Missed doses: No Estimated days supply on hand: 1 Copay amount: 0 Payment confirmed: Yes Delivery method: FedEx Signature required: Waived on patient request Delivery address: [address] [place] [address] Delivery date: 04/28/23 [facility] Visit Assessment - Inflammat (more content not included)...[facility]11-30-2023 Miscellaneous Notes* Telephone Encounter - Bhargav Hamm RN - 04/22/2023 3:48 PM EST Pt called for Iron results; possible need for transfusion. Pt aware no need for iron infusion at this time. Bhargav Hamm RN documented in this encounterOhiohealth Arthur G.[facility]. [facility], [facility]11-24-2023 NoteHNO ID: [id number] Author: Wilmer Driver APRN.STRATEGIC SOURCING CONSULTANT Service: ? Author Type: Nurse Practitioner Type: Progress Notes Filed: 04/20/2023 4:05 PM Note Text: NAME: Jones Haley [facility] NO.: [id number] DATE OF SERVICE: April 16, 2023 (Bob) Some elements in this clinic note that are critical to medical decision making have been carefully reviewed and included from a prior clinic note dated: February 19, 2023 (Dr. Najera) Referring Provider: Dr. Madelaine Ferris [...] dyspnea, possible bronchitis, no cough Updated Visit, April 20, 2023: Jones Haley [...] lower lip done [address] [facility] - awaiting results. 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 She has been told they [...] on folic acid. She has been wearing h (more content not included)...[facility] 04-16-2023 NoteHNO ID: [id number] Author: Kenzie Shannon Service: ? Author Type: ? Type: Progress Notes Filed: 04/16/2023 11:10 AM Note Text: Patient Identification confirmed: yes. Injection given and documented on MAR per provider order. Kenzie ShannonKindred Hospital [facility]11-24-2023 History of Present illness Narrative* Kenzie Shannon - 04/16/2023 10:55 AM EST Patient Identification confirmed: yes. Injection given and documented on MAR per provider order. Kenzie Shannon documented in this encounterOhiohealth Arthur G.[facility]. [facility]11-09-2023 NoteHNO ID: [id number] Author: Carlene Rendon Service: ? Author Type: ? Type: Progress Notes Filed: 04/01/2023 12:23 PM Note Text: [facility] Refill Assessment Medication(s): Benlysta No new charted information to review since last refill encounter. ALLERGIES Allergen Reactions Bactrim [Sulfametho* GI Upset [...] just thinks she just experienced side effects. Cheyanne Jordan [facility] Clinical Pharmacist, Hepatology AND HCV [facility] P: ; F: Pool: P [facility] Patient's current medication list and adherence status [...] laboratory parameters, disease state markers and outcomes. 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 Visit Assessment - Inflammatory [...] monitoring (Orencia): N/A Assessment of efficacy: Yes Carlene Rendon [facility], Inflammatory P: [phone] F: [phone] ALLERGIES Allergen Reactions Bactrim [Sulfametho* GI Upset [...] just thinks she just experienced side effects. Cheyanne Jordan [facility] Clinical Pharmacist, Hepatology AND HCV [facility] P: ; F: Pool: P [facility] (more content not included)...[facility] 03-19-2023 NoteHNO ID: [id number] Author: Kenzie Shannon Service: ? Author Type: ? Type: Progress Notes Filed: 03/19/2023 11:22 AM Note Text: Patient Identification confirmed: yes. Injection given and documented on MAR per provider order. Kenzie ShannonKindred Hospital [facility]10-27-2023 History of Present illness Narrative* Kenzie Shannon - 03/19/2023 11:06 AM EDT Patient Identification confirmed: yes. Injection given and documented on MAR per provider order. Kenzie Shannon documented in this encounterOhiohealth Arthur G.[facility]. [facility], [facility], [facility]10-24-2023 NoteHNO ID: [id number] Author: Marija Ziegler Service: ? Author Type: ? Type: Progress Notes Filed: 03/24/2023 10:28 AM Note Text: CMN RECEIVED BY [employer] VIA FAX, COMPLETED, AND PLACED IN PROVIDER MAILBOX FOR SIGNATURE On March 16, 2023 By Marija Ziegler Environmental Test Technician II. [employer] SENDING CMN: LINCARE SIGNED AND DATED CMN, FAXED TO [facility] AND CONFIRMATION PAGE RECEIVED: 03.24.23 [facility]10-24-2023 History of Present illness Narrative* Marija Ziegler - 03/16/2023 10:13 AM EDT CMN RECEIVED BY [employer] VIA FAX, COMPLETED, AND PLACED IN PROVIDER MAILBOX FOR SIGNATURE On 2022 By Marija Ziegler Environmental Test Technician II. [employer] SENDING CMN: RADHAARE SIGNED AND DATED CMN, FAXED TO DME & CONFIRMATION PAGE RECEIVED: 03.24.23 documented in this encounterOhiohealth Arthur G.[facility]. [facility], [facility]10-19-2023 NoteHNO ID: [id number] Author: Beatriz Sanchez LPN Service: ? Author Type: LICENSED NURSE Type: Progress Notes Filed: 03/11/2023 8:30 AM Note Text: AMBULATORY PATIENT EDUCATION TOPIC: SURVIVAL SKILLS: weekly [...] Signed By Beatriz Sanchez LPN In Department: [facility]UM[facility]OLOGYKind[facility]10-19-2023 History of Present illness Narrative* Beatriz Sanchez [...] LPN In Department: RHEUMATOLOGY documented in this encounterOhiohealth Arthur G.[facility]. [facility]10-18-2023 Miscellaneous Notes* Telephone Encounter - Christie Phan MD - 03/10/2023 2:18 PM EDT Spoke with patient. We stopped her trulicity because of side effects. She only took the cymbalta for a week. She will restart and we will see how she is doing in 2 months. Have also ordered insulin labs to check for insulin resistance. documented in this encounterOhiohealth Arthur G.[facility]. [facility]10-09-2023 Miscellaneous Notes* Telephone Encounter - Lynne Ni MD - 03/01/2023 3:27 PM EDT For chart: Eye exam 02/26/23 no ocular complication related to medication. * Telephone Encounter - Beatriz Sanchez LPN - 03/01/2023 2:38 PM EDT Received eye exam from [facility] Placed on your desk for review. documented in this encounterOhiohealth Arthur G.[facility]. [facility]09-29-2023 Nurse Note* Radha Kebede MA - 02/19/2023 11:48 AM EDT Patient Identification confirmed: yes. Injection given and documented on JUL per provider order. Radha Schofield MA documented in this encounterOhiohealth Arthur G.[facility]. [facility]09-29-2023 Instructions* Patient Instructions* Jose Najera MD - 02/19/2023 11:40 AM EDT B12 shot today and every 4 weeks. Continue Folic acid. Follow up in 8 Weeks - labs 1 week before. documented in this encounterOhiohealth Arthur G.H. Bing, Md, Cancer Center09-29-2023 History of Present illness Narrative* Jose Najera MD - 02/19/2023 11:32 AM EDT Images from the original note were not included. AMBULATORY TELEPHONE VISIT Jones Melissa Branchfrancisco javier has consented to this telephone encounter. Persons Present: Patient and myself Chief Complaint/Reason: Anemia; To review recent blood work. HPI: Total Time Spent: 21 minutes Wilmer Driver APRN.STRATEGIC SOURCING CONSULTANT NAME: Tera Jones [facility] NO.: [id number] DATE OF SERVICE: February 19, 2023 (Marquis) [...] lower lip done [address] [facility] - awaiting results. B12 helps especially [...] injections. Shefollows with multiple doctors including and cvt tech, rn medicare, computer engineering professor and PCP. She has been told they [...] which included preparing to see the patient, qope-zc-ppss patient care, completing clinical documentation, performing a medically appropriate examination, counseling and educating the patient/family/caregiver, ordering medications, tests, or p rocedures, and independently interpreting results (not separately reported). Jose Najera MD, CPE Hematology and Oncology Services Provided at: [place], [place] CC: Madelaine Ferris MD [address] [facility] [address] documented in this encounterOhiohealth Arthur G.H. Bing, Md, Cancer Center09-26-2023 Miscellaneous Notes* Telephone Encounter - Lynne [...] RAYRAY INJECTION TEACHING 03/11/2023 7:30 AM [facility] NICKIE VIDEO SPEC EST 08/12/2023 9:00 AM [facility] NICKIE Last Ophthalmology Check for Plaquenil [...] diagnoses: Vitamin D deficiency documented in this encounterOhiohealth Arthur G.H. [facility], Md, Cancer Center09-18-2023 Miscellaneous Notes* Telephone Encounter - Mirela Carlos - 02/08/2023 11:12 AM EDT Spoke with patient Will get labs done when she does labs in Dec for Dre/Onc Mailed orders for DXA to pt so she can go to [facility] Pre cert Benlyst Scheduled Teaching visit [...] accordingly. Lynne Ni MD documented in this encounterOhiohealth Arthur G.H. Bing, Md, Cancer Center09-14-2023 History of Present illness Narrative* Carlene Rendon - 02/04/2023 9:31 AM EDT [facility] received prescription(s) for Benlysta from Dr. Ni. Benefits investigation was conducted, indicating that a prior authorization is required by patients plan with [facility]. Encounter will be updated once prior authorization has been submitted by [facility]. Carlene Rendon CPhT [facility], Inflammatory P: [phone] F: [phone] documented in this encounterOhiohealth Arthur G.H. [facility], Md, Cancer Center09-14-2023 History of Present illness Narrative* Lynne [...] visit. Either the patient or their legal rental sales representative has been informed of the [...] neurology/on metoprolol for POTs, avoid aggravating triggers, assisted pain recommendations per primary care provider/pain clinic/patient [...] -12/31. Couple hrs AM stiffness. COVID vaccine ADIKTIVO 09/28/20, 10/19/20, 05/26/21. Feels safe at home. [...] COVID-19 original vaccine, age 12+ yr, monovalent (Viratech - PURPLE TOP) 09/28/2020 10/19/2020 05/26/2021 COVID-19 vaccine, age 12+ yr, bivalent (Viratech) 02/08/2022 Pneumovax no Flu shot no Tetanus [...] (33);NL cbc, cmp, negative hla b27; Outside [place] 06/2021 low vitamin D 16, vitamin b12-307;high [...] measures, may consider osteoporosis treatment if on assisted steroids/abnormal bmd, take vitamin D script if [...] neurology/on metoprolol for POTs, avoid aggravating triggers, assisted pain recommendations per primary care provider/pain clinic/patient currently declined cymbalta/lyrica, see ortho, prn brace, start fall precautions, answered all questions and concerns, patient voiced understanding. RECOMMENDATION/PLAN: [facility] on 02/04/23 DXA-AXIAL SKELETON DXA-FOREARM SKELETON [...] (200mg) daily with a meal Please see support representative every 6-12months while on Hydroxychloroquine. Start 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 [...] touching your toes, sit-ups, using row machine assisted pain recommendations per primary care provider/pain clinic [...] video & audio (virtual) or phone or xlat-rf-[id number] patient care, completing clinical documentation, obtaining and/or [...] shared medical records. cc Gay Enciso CNP;MD ISABEL Maria AMBULATORY VISIT INTAKE QUESTIONNAIRE Question 02/02/2023 10:32 [...] Medication Reposition Cold Heat Positioning Comments [facility] ISABEL ADDITIONAL DEMO Question 02/02/2023 10:32 PM EDT - Filed by Patient Is this visit related to an accident, other than Workers' Compensation? No Is this visit related to Workers' Compensation? No Do you need an park interpreter? No [facility] BRANT ZOOM MESSAGE Question 02/02/2023 10:32 PM EDT [...] Yes Memory Loss: No Swollen Glands: Yes [facility] SLAQ QUESTIONNAIRE Question 02/02/2023 10:38 PM EDT [...] help my provider understand my health Agree [facility] DOCUMENT/IMAGE UPLOAD Question 02/02/2023 10:38 PM EDT [...] < or = 5) documented in this encounterOhiohealth Arthur G.H. [facility], [facility], Cancer Center09-14-2023 Instructions* Patient Instructions* Lynne Ni MD [...] (200mg) daily with a meal Please see support representative every 6-12months while on Hydroxychloroquine. 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 daily [...] touching your toes, sit-ups, using row machine 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 pain recommendations per primary care provider/pain clinic [...] your usual activities immediately. documented in this encounterOhiohealth Arthur G.H. [facility], [facility], Cancer Center09-05-2023 Miscellaneous Notes* Telephone Encounter - Maynor Bryson MA - 01/26/2023 7:46 AM EDT patient has viewed the [employer] message per [employer]. * Telephone Encounter - Lynne Ni MD - 01/24/2023 8:04 PM EDT Please Call patient if [employer] note not read to review results/released to My Chart if tests completed at [facility]: mildly high normal wbc- will [...] accordingly. Lynne Ni MD documented in this encounterOhiohealth Arthur G.H. [facility], Md, Cancer Center09-01-2023 Nurse Note* Radha Kebede MA - 01/22/2023 12:17 PM EDT Patient Identification confirmed: yes. Injection given and documented on JUL per provider order. Radha Schofield MA documented in this encounterOhiohealth Arthur G.H. [facility], Md, Cancer Center08-22-2023 Miscellaneous Notes* Telephone Encounter - Christie [...] above prescription(s) to electronically send to [facility] pharmacy. Milagro Mendiola MA documented in this encounterOhiohealth Arthur G.H. [facility], Md, Cancer Center08-11-2023 History of Present illness Narrative* Misty Nelson MD - 01/01/2023 10:51 AM EDT VIRTUAL VISIT PROGRESS NOTE This is a virtual visit using [employer] video visit. It required patient-provider interaction for themedical decision making as documented below. I have communicated my name and active licensure. The patient's identity and physical location wereverified at the time of this visit. Either the patient or their legal rental sales representative has been informed of the [...] otitis or sinusitis No pneumonia She sees rn medicare and was diagnosed with lupus She is on Plaquenil, 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 Prednisone 10mg once daily for the past year; every few months she gets treated with higher doses of prednisone for flares of her symptoms The medications seem to help the body aches She saw the horse shoer Treated with B12 and folic acid We [...] visit. Misty Nelson MD documented in this encounterOhiohealth Arthur G.H. [facility], Md, Cancer Center07-28-2023 Miscellaneous Notes* Telephone Encounter - Wilmer Driver APRN.CNP - 12/18/2022 10:48 AM EDT Spoke with patient this morning, 12/18/2022. Wilmer Driver APRN.TRUE * Telephone Encounter - Lidia Argueta RN - 12/18/2022 9:31 AM EDT Pt called stone rigger service last evening stating she was suppose to have a phone call with Wilmer at 330 and never received a call. Pt is still waiting (536 pm 12/17/22). Please advise Lidia Argueta RN documented in this encounterOhiohealth Arthur G.H. [facility], Md, Cancer Center07-28-2023 History of Present illness Narrative* Wilmer rDiver APRN.CNP - 12/18/2022 9:07 AM EDT Images from [...] Total Time Spent: 21 minutes Wilmer Driver APRN.STRATEGIC SOURCING CONSULTANT NAME: Jones Haley CLINIC NO.: [id number] DATE OF SERVICE: October 22, 2022 (Marquis) [...] lower lip done [address] [facility] - awaiting results. B12 helps especially [...] injections. Shefollows with multiple doctors including and cvt tech, rn medicare, computer engineering professor and PCP. She has been told they [...] which included preparing to see the patient, rgpw-ek-twdw patient care, completing clinical documentation, performing a medically appropriate examination, counseling and educating the patient/family/caregiver, ordering medications, tests, or p rocedures, and independently interpreting results (not separately reported). Jose Najera MD, CPE Hematology and Oncology Services Provided at: [place], [place] CC: Madelaine Ferris MD [address] [facility] [address] documented in this encounterOhiohealth Arthur G.H. [facility], Md, Cancer Center07-26-2023 Miscellaneous Notes* Telephone Encounter - Pamella Bettencourt RN - 12/16/2022 1:14 PM EDT Pt notified and verbalizes understanding. Clerical: Please change tomorrow's appointment to a phone visit at the end of Wilmer's day. Preferred number is [phone]. In addition, pt will be in next 12/25/22 @ 1130 for her B12 shot. Please add her to the MA schedule. Thanks! Pamella Bettencourt RN * Telephone Encounter - Wilmer Driver APRN.CNP - 12/16/2022 12:56 PM EDT That would be okay. Have her added at the end of the day. Thanks, Wilmer Driver APRN.STRATEGIC SOURCING CONSULTANT * Telephone Encounter - Pamella Bettencourt RN [...] schedule? Pamella Bettencourt RN documented in this encounterOhiohealth Arthur G.H. [facility], Md, Cancer Center07-23-2023 Miscellaneous Notes* Telephone Encounter - Jose Najera MD - 12/13/2022 8:59 PM EDT No clinical utility or implication for a low anion gap. No other concerning findings. I hope that helps. * Telephone Encounter - Bhargav Hamm RN - 12/08/2022 1:34 PM EDT [...] Thank you MASON/HM: please review and advise Bhargav Hamm RN documented in this encounterOhiohealth Arthur G.H. [facility], Md, Cancer Center07-04-2023 Miscellaneous Notes* Telephone Encounter - Lynne [...] accordingly. Lynne Ni MD documented in this encounterOhiohealth Arthur G.H. [facility], Md, Cancer Center06-29-2023 Nurse Note* Margret Cuenca - 11/19/2022 11:01 AM EDT Patient Identification confirmed: yes. Injection given and documented on MAR per provider order. Margret Cuenca documented in this encounterOhiohealth Arthur G.H. [facility], Md, Cancer Center06-01-2023 Nurse Note* Stacy Gutiérrez Ma - 10/22/2022 11:50 AM EDT Patient Identification confirmed: yes. Injection given and documented on MAR per provider order. Stacy Gutiérrez Ma documented in this encounterOhiohealth Arthur G.H. [facility], Md, Cancer Center06-01-2023 Instructions* Patient Instructions* Jose Najera MD - 10/22/2022 11:43 AM EDT B12 Shot today and every 4 weeks. Continue Folic acid. Follow up in 8 Weeks - labs 1 week before. documented in this encounterOhiohealth Arthur G.H. [facility], Md, Cancer Center06-01-2023 History of Present illness Narrative* Jose Najera MD - 10/22/2022 11:35 AM EDT Images from the original note were not included. NAME: Tera Jones [facility] NO.: [id number] DATE OF SERVICE: October 22, 2022 (Marquis) [...] lower lip done [address] [facility] - awaiting results. B12 helps especially [...] Updated Visit, August 27, 2022: Jones Melissa De Pazhugo returns for follow-up and B12 injection. She has missed a few B12 injections. Shefollows with multiple doctors including and cvt tech, rn medicare, computer engineering professor and PCP. She has been told they [...] which included preparing to see the patient, gkea-qe-rmdb patient care, completing clinical documentation, performing a medically appropriate examination, counseling and educating the patient/family/caregiver, ordering medications, tests, or p rocedures, and independently interpreting results (not separately reported). Jose Najera MD, CPE Hematology and Oncology Services Provided at: [place], [place] CC: Madelaine Ferris MD [address] [facility] [address] documented in this encounterOhiohealth Arthur G.H. [facility], Md, Cancer Center05-04-2023 Nurse Note* Stacy Gutiérrez Ma - 09/24/2022 10:22 AM EDT Patient Identification confirmed: yes. Injection given and documented on JUL per provider order. Stacy Gutiérrez Ma documented in this encounterOhiohealth Arthur G.H. [facility], Md, Cancer Center04-18-2023 Miscellaneous Notes* Telephone Encounter - Stacy Hernandez - 09/08/2022 2:27 PM EDT Pharmacy-Reviewed Medication History Patient Name:.Jones Haley : 1980 Patient Contact Attempt: First attempt Adherence Packing Program Accepted? No, patient does not wish to participate. Patient is not eligible for adherence packaging because PCP is not within [facility]. Patient wishes to continue at [facility] since medication bottles will look the same and then she can pick-up the medications when she needs them. Stacy Hernandez September 08, 2022 2:28 PM [facility] [phone] documented in this encounterOhiohealth Arthur G.H. [facility], Md, Cancer Center04-17-2023 History of Present illness Narrative* Christie Phan MD - 09/07/2022 2:00 PM EDT Images from the original note were not included. [facility] Virtual Follow-Up [...] which included preparing to see the patient, oiue-uy-aand patient care, completing clinical documentation, performing a medically appropriate examination, counseling and educating the patient/family/caregiver, ordering medications, tests, or p rocedures, and communicating with other HCPs (not separately reported). I have communicated my name and active licensure. The patient's identity and physical location wereverified at the time of this visit. Either the patient or their legal rental sales representative has been informed of the risks and benefits of -- and alternatives to -- treatment through a remote evaluation andconsents to proceed with the evaluation remotely. Christie Phan MD, MA, [facility] Lifestyle Medicine Specialist documented in this encounterOhiohealth Arthur G.H. [facility], Md, Cancer Center04-17-2023 Nurse Note* Milagro Mendiola MA - 09/07/2022 2:00 PM EDT Called pt to do intake for video visit pt unavailable lft vm msg sent my chart. Milagro Mendiola MA documented in this encounterOhiohealth Arthur G.H. [facility], [facility], Cancer Center04-10-2023 Miscellaneous Notes* Telephone Encounter - Shantel Higgins MA - 08/31/2022 8:38 AM EDT called [facility] pharmacy - pharmacy had 1 refill remaining no action needed from our office documented in this encounterOhiohealth Arthur G.H. [facility], Md, Cancer Center04-06-2023 Nurse Note* Stacy Gutiérrez Ma - 08/27/2022 10:31 AM EDT Patient Identification confirmed: yes. Injection given and documented on JUL per provider order. Stacy Gutiérrez Ma documented in this encounterOhiohealth Arthur G.H. [facility], Md, Cancer Center04-06-2023 History of Present illness Narrative* Wilmer Driver APRN.[facility] - 08/27/2022 10:00 AM EDT Images from the original note were not included. NAME: Jones Haley [facility] NO.: [id number] DATE OF SERVICE: August 27, 2022 (Bob) [...] injections. Shefollows with multiple doctors including and cvt tech, rn medicare, computer engineering professor and PCP. She has been told they [...] stomach other (Crohn's [Other]) Mother Wilmer Driver, PREPARATION SUPERVISOR [employer]ZING.STRATEGIC SOURCING CONSULTANT Hematology and Oncology Services Provided at: [place], [place] CC: Madelaine Ferris MD [address] [facility] [address] I spent a total of 30 minutes on the date of the service which included preparing to see the patient, kavn-gj-oxpm patient care, completing clinical documentation, obtaining and/or reviewing separately obtained history, performing a medically appropriate examination, counseling and educating the pat ient/family/caregiver, ordering medications, tests, or procedures, independently interpreting results (not separately reported), and communicating results to the patient/family/caregiver. documented in this encounterOhiohealth Arthur G.H. [facility], Md, Cancer Center03-29-2023 Miscellaneous Notes* Telephone Encounter - Freda [...] low vitamin b12- take over the counter 3477-1018 mcg daily. Improved/ normal rest of rheum [...] accordingly. Lynne Ni MD documented in this encounterOhiohealth Arthur G.H. [facility], Md, Cancer Center03-28-2023 Miscellaneous Notes* Telephone Encounter - Beatriz [...] accordingly. Lynne Ni MD documented in this encounterOhiohealth Arthur G.H. [facility], Md, Cancer Center03-20-2023 Miscellaneous Notes* Telephone Encounter - Christie Phan MD - 08/10/2022 9:46 AM EDT [facility] requesting refill, patient never started according to the chart and I have not seen her in follow-up. * Telephone Encounter - Jami Everett Cma - 08/10/2022 7:40 AM EDT [facility] Pharmacy request for the following refill(s): Requested Prescriptions Pending Prescriptions Disp Refills DULoxetine (CYMBALTA) 20 mg capsule [Pharmacy Med Name: DULOXETINE HCL DR 20 MG CAP] 30 capsule 2 Sig: TAKE 1 CAPSULE BY MOUTH ONCE DAILY Please review and advise. Jami Everett Cma documented in this encounterOhiohealth Arthur G.H. [facility], [facility], Cancer Center03-06-2023 Instructions* Patient Instructions* Timmy Heck APRN.STRATEGIC SOURCING CONSULTANT - 07/27/2022 9:12 PM EST Images from the original note were not included. Your most recent body mass index (BMI) that we have on record is 40.56 kg/m2. Obstructive sleep apnea (JOSE RAFAEL) worsens with an increase in weight; reduction in weight may improve or resolve your JOSE RAFAEL. Ifyou are not already seeking treatment, there are resources available at the [facility] such as a nutrition consultation or referral to weight management programs at our [facility] [place]. Please let us know if we can assist with a referral. - Continue CPAP at 5-15 cmH2O. - Remember to clean your mask and equipment regularly, as directed. - You should be eligible for new supplies approximately every 3-6 months, depending on your insurance coverage. Contact your [employer] company for new supplies. -Your insurance requires [...] the central scheduling system for the [facility] [place] at [phone]. [facility] now offers direct scheduling for patients to schedule appointments. Virtual visits are also available. If not covered by your insurance, there is a 35% discount. Please contact your insurance to determine coverage. Call the office at [phone], option #5 for questions. documented in this encounterOhiohealth Arthur G.[facility]. [facility], [facility] Center03-06-2023 History of Present illness Narrative* Timmy Heck APRN.CNP - 07/27/2022 10:30 AM EST Images from the original note were not included. [facility] Virtual Visit Follow [...] will have a prescription sent to a [employer] company - [employer] who will be calling you in the [...] Tips for good sleep hygiene shared in Presentigohart. - Follow up in 2 months in the office. Recommend scheduling this appointment now to ensure the besttime for you. [facility] on 04/13/22 CONSULT TO SLEEP MEDICINE - ADULT CPAP/BIPAP/OTHER PAP THERAPY ORDER Lawanda Miranda MD Interval history : Here for follow up for sleep apnea management. SLEEP APNEA Sleep apnea type : JOSE RAFAEL Most Recent Apnea-Hypopnea Index (AHI): 5.3 Treatment : PAP therapy DME: Josh MOJICA fax: [phone] DME ph: [phone] PAP History: Current PAP settin-15 cm H2O. [...] or near accidents due to drowsy drivin [place] Sleepiness Scale 04/12/2022 07/23/2022 Score 4 (No [...] medications, tests, or procedures. documented in this encounterOhiohealth Arthur G.[facility]. [facility], [facility], [facility] Center03-03-2023 Miscellaneous Notes* Telephone Encounter - Kyara [...] complete patient specific tasks. documented in this encounterOhiohealth Arthur G.H. [facility], Md, [facility] Center03-01-2023 Miscellaneous Notes* Telephone Encounter - Gem Mercedes RN - 07/22/2022 2:37 PM EST [employer] message sent documented in this encounterOhiohealth Arthur G.H. Bing, Md, Cancer Center12-28-2022 History of Present illness Narrative* Kenzie Shannon - 05/20/2022 2:28 PM EST Patient Identification confirmed: yes. Injection given and documented on JUL per provider order. Kenzie Shannon documented in this encounterOhiohealth Arthur G.H. [facility], Md, Cancer Center12-28-2022 Miscellaneous Notes* Addendum Note - Jose Najera MD - 05/20/2022 2:27 PM ESTAddended by: JOSE NAJERA on: 05/20/2022 02:27 PM Modules accepted: Orders documented in this encounterOhiohealth Arthur G.H. [facility], Md, Cancer Center12-28-2022 Instructions* Patient Instructions* Jose Najera MD - 05/20/2022 2:23 PM EST B12 Shot Today and every 4 weeks Get fit for CPAP mask and setting this 05/28/2021 Continue Folic acid. RTC in 8 Weeks - labs 1 week before. documented in this encounterOhiohealth Arthur G.H. [facility], Md, Cancer Center12-28-2022 History of Present illness Narrative* Jose Najera MD - 05/20/2022 1:30 PM EST Images from the original note were not included. NAME: Jones Haley [facility] NO.: [id number] DATE OF SERVICE: May 20, 2022 (Marquis) [...] which included preparing to see the patient, stwo-mx-nwiq patient care, completing clinical documentation, performing a medically appropriate examination, counseling and educating the patient/family/caregiver, ordering medications, tests, or p rocedures, and independently interpreting results (not separately reported). Jose Najera MD, CPE Hematology and Oncology Services Provided at: [place], [place] CC: Jose Najera [address] [place] [address] [facility] [id number] Madelaine Ferris MD, MD [address] [facility] [address] CC: Madelaine Ferris MD [address] [facility] [address] documented in this encounterOhiohealth Arthur G.H. [facility], [facility], [facility] Center12-13-2022 Miscellaneous Notes* Telephone Encounter - Gem Mercedes RN - 05/05/2022 2:39 PM EST Faxed order, office notes, demographics, and sleep study to: DME name: Josh Reese [facility] fax: [phone] [facility] ph: [phone] Confirmation received. documented in this encounterOhiohealth Arthur G.H. [facility], [facility], [facility] Center12-13-2022 Miscellaneous Notes* Telephone Encounter - Gem Mercedes RN - 05/05/2022 12:00 PM EST MyChart message sent documented in this encounterOhiohealth Arthur G.H. Bing, Md, Cancer Center12-13-2022 Miscellaneous Notes* Telephone Encounter - ANALILIA Monterroso - 05/05/2022 11:36 AM EST [facility] received your PAP order. Due to a major Expa recall and manufacturing shortage, we are unable to fulfill the request to provide your patient with a CPAP/BIPAP machine at this time. We will keep the request on file and provide when inventory is available or you can forward the order to another DME provider such as [employer], [employer] or [employer]. Caring for our patients is our top priority and we apologize for this delay. Thank you for your patience during this time. [phone] #1 documented in this encounterOhiohealth Arthur [facility]12-02-2022 Miscellaneous Notes* Telephone Encounter - Luann [...] doctor has noted concern for EDS. Her rn medicare has told her that she has Lupus. Based on her history, I noted we can offer in-person evaluations for herself and/or her son to see if any genetic testing may be useful. I validated and provided support on the difficulty with her ambulation and transport concerns. I noted[facility] not have other locations and only available at [facility]. I offered social work and/or transport assistance for the visit. She declined this and will discuss with her regarding the transport. She verbalized understanding the reasons for in-person evaluation recommended. She has the [facility] line and will call to reschedule for an in-person evaluation at [facility]. Luann Lance MD Tapping Machine Operator, Associate Staff [facility] documented in this encounterOhiohealth Arthur G.[facility]. [facility] Center11-30-2022 Miscellaneous Notes* Telephone Encounter - Eliza [...] copy of the report. Confirmed patient's email [email or web address] Eliza Licea Genetic Counselor [employer] Tile Floor Layer documented in this encounterOhiohealth Arthur G.[facility]. [facility]11-08-2022 Miscellaneous Notes* Telephone Encounter - Renate Lawrence MA - 03/31/2022 2:34 PM EST [facility] pharmacy electronically requests the following refill(s) Requested Prescriptions Pending Prescriptions Disp Refills DULoxetine (CYMBALTA) 20 mg capsule [Pharmacy Med Name: DULOXETINE HCL DR 20 MG CAP] 30 capsule 2 Sig: TAKE 1 CAPSULE BY MOUTH ONCE DAILY Renate Lawrence MA documented in this encounterOhiohealth Arthur G.[facility]. [facility]11-07-2022 Miscellaneous Notes* Telephone Encounter - Maria Eugenia Sheehan LPN - 03/30/2022 11:53 AM EST M and sent MyChart regarding Dr. Nelson's directive. [...] Thanks. Misty Nelson MD documented in this encounterOhiohealth Arthur G.[facility]. [facility] Center11-07-2022 Miscellaneous Notes* Telephone Encounter - Maria Eugenia Sheehan LPN - 03/30/2022 11:49 AM EST LVM and sent MyChart regarding Dr. Nelson's directive. documented in this encounterOhiohealth Arthur G.[facility] Center10-26-2022 Instructions* Patient Instructions* Joes Najera MD - 03/18/2022 11:16 AM EDT Referral for sleep study pending Start on Folic acid. RTC in 8 Weeks - labs 1 week before. documented in this encounterOhiohealth Arthur G.[facility] Center10-26-2022 History of Present illness Narrative* Jose Najera MD - 03/18/2022 10:45 AM EDT Images from the original note were not included. NAME: Jones Haley CLINIC NO.: [id number] DATE OF SERVICE: March 18, 2022 ([place]) [...] which included preparing to see the patient, lxqb-wy-oguy patient care, completing clinical documentation, performing a medically appropriate examination, counseling and educating the patient/family/caregiver, ordering medications, tests, or p rocedures, and independently interpreting results (not separately reported). Jose Najera MD, CPE Hematology and Oncology Services Provided at: [place], [place] CC: Madelaine Ferris MD [address] [facility] [id number] documented in this encounterOhiohealth Arthur G.[facility]. [facility], [facility] Center10-18-2022 History of Present illness Narrative* Misty Nelson MD - 03/10/2022 2:14 PM EDT VIRTUAL VISIT PROGRESS NOTE This is a virtual visit using [employer] video visit. It required patient-provider interaction for [...] the HR increases again She sees a process manager in [place] PCP is running the Holter and echo [...] but was not pursued yet Lives in [place] She did have LN biopsy in the [...] visit. Misty Nelson MD documented in this encounterOhiohealth Arthur G.[facility]. [facility], [facility] Center10-17-2022 History of Past illness Narrative* Problem Noted Date Diagnosed Date Resolved Date Obesity, Class II, BMI 35-39.9 03/09/2022 03/10/2023 Obesity (BMI 30-39.9) 05/31/20142016 documented as of this encounter (statuses as of 03/10/2023) [address]2022 History of Past illness Narrative* Problem Noted Date Diagnosed Date Resolved Date Obesity, Class II, BMI 35-39.9 03/09/2022 03/10/2023 Obesity (BMI 30-39.9) 05/31/20142016 documented as of this encounter (statuses as of 03/11/2023) [address]17-2022 History of Past illness Narrative* Problem Noted Date Diagnosed Date Resolved Date Obesity, Class II, BMI 35-39.9 03/09/2022 03/10/2023 Obesity (BMI 30-39.9) 05/31/20142016 documented as of this encounter (statuses as of 03/19/2023) [address]17-2022 History of Past illness Narrative* Problem Noted Date Diagnosed Date Resolved Date Obesity, Class II, BMI 35-39.9 03/09/2022 03/10/2023 Obesity (BMI 30-39.9) 05/31/20142016 documented as of this encounter (statuses as of 03/24/2023) [address]17-2022 History of Past illness Narrative* Problem Noted Date Diagnosed Date Resolved Date Obesity, Class II, BMI 35-39.9 03/09/2022 03/10/2023 Obesity (BMI 30-39.9) 05/31/20142016 documented as of this encounter (statuses as of 04/16/2023) [address]17-2022 History of Past illness Narrative* Problem Noted Date Diagnosed Date Resolved Date Obesity, Class II, BMI 35-39.9 03/09/2022 03/10/2023 Obesity (BMI 30-39.9) 05/31/20142016 documented as of this encounter (statuses as of 04/23/2023) [address]17-2022 History of Past illness Narrative* Problem Noted Date Diagnosed Date Resolved Date Obesity, Class II, BMI 35-39.9 03/09/2022 03/10/2023 Obesity (BMI 30-39.9) 05/31/20142016 documented as of this encounter (statuses as of 04/27/2023) [address]17-2022 History of Past illness Narrative* Problem Noted Date Diagnosed Date Resolved Date Obesity, Class II, BMI 35-39.9 03/09/2022 03/10/2023 Obesity (BMI 30-39.9) 05/31/20142016 documented as of this encounter (statuses as of 04/27/2023) [address]17-2022 History of Past illness Narrative* Problem Noted Date Diagnosed Date Resolved Date Obesity, Class II, BMI 35-39.9 03/09/2022 03/10/2023 Obesity (BMI 30-39.9) 05/31/20142016 documented as of this encounter (statuses as of 05/31/2023) [address]17-2022 History of Past illness Narrative* Problem Noted Date Diagnosed Date Resolved Date Obesity, Class II, BMI 35-39.9 03/09/2022 03/10/2023 Obesity (BMI 30-39.9) 05/31/20142016 documented as of this encounter (statuses as of 07/13/2023) [address]17-2022 History of Past illness Narrative* Problem Noted Date Diagnosed Date Resolved Date Obesity, Class II, BMI 35-39.9 03/09/2022 03/10/2023 Obesity (BMI 30-39.9) 05/31/20142016 documented as of this encounter (statuses as of 07/13/2023) [address]17-2022 History of Past illness Narrative* Problem Noted Date Diagnosed Date Resolved Date Obesity, Class II, BMI 35-39.9 03/09/2022 03/10/2023 Obesity (BMI 30-39.9) 05/31/20142016 documented as of this encounter (statuses as of 08/05/2023) [address]17-2022 History of Past illness Narrative* Problem Noted Date Diagnosed Date Resolved Date Obesity, Class II, BMI 35-39.9 03/09/2022 03/10/2023 Obesity (BMI 30-39.9) 05/31/20142016 documented as of this encounter (statuses as of 08/12/2023) [address]17-2022 History of Past illness Narrative* Problem Noted Date Diagnosed Date Resolved Date Obesity, Class II, BMI 35-39.9 03/09/2022 03/10/2023 Obesity (BMI 30-39.9) 05/31/20142016 documented as of this encounter (statuses as of 09/01/2023) [facility] History of Past illness Narrative* Problem Noted Date Diagnosed Date Resolved Date Obesity, Class II, BMI 35-39.9 03/09/2022 03/10/2023 Obesity (BMI 30-39.9) 05/31/20142016 documented as of this encounter (statuses as of 09/06/2023) [facility]17[facility] History of Past illness Narrative* Problem Noted Date Diagnosed Date Resolved Date Obesity, Class II, BMI 35-39.9 03/09/2022 03/10/2023 Obesity (BMI 30-39.9) 05/31/20142016 documented as of this encounter (statuses as of 09/11/2023) [facility]10-17-2022 Instructions* Patient Instructions* Christie Phan MD - 03/09/2022 12:47 PM EDT Check EKG for prolonged QT. If normal, I would try going back on the Lexapro, can recheck an EKG inabout a month to make sure that things are going ok. (I'm leaving this, but we are changing to Cymbalta) Tilt Table Test [email or web address] documented in this encounterOhiohealth Arthur G.[facility]. [facility], [facility] Center10-17-2022 History of Present illness Narrative* Christie Phan MD - 03/09/2022 12:08 PM EDT Images from the original note were not included. 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 documented in this encounterOhiohealth Arthur G.[facility]. [facility], [facility] Center10-14-2022 Miscellaneous Notes* Telephone Encounter - Krista [...] accordingly. Lynne Ni MD documented in this encounterOhiohealth Arthur G.[facility]. [facility], [facility], [facility] Center10-12-2022 Instructions* Patient Instructions* Jose Najera MD - 03/04/2022 11:42 AM EDT Labs today. Referral for sleep study. RTC in 2 weeks. Consider immunology referral. Referral to lifestyle medicine documented in this encounterOhiohealth Arthur G.[facility]. [facility], [facility] Center10-12-2022 History of Present illness Narrative* Jose Najera MD - 03/04/2022 11:19 AM EDT Images from the original note were not included. NAME: Jones Haley [facility] NO.: [id number] DATE OF SERVICE: March 04, 2022 Referring [...] ADULT, POLYSOMNOGRAM (PSG), CONSULT TO LIFESTYLE MEDICINE (R06.83) Snoring Plan: CONSULT TO SLEEP MEDICINE [...] which included preparing to see the patient, ryrd-np-niar patient care, completing clinical documentation, obtaining and/or reviewing separately obtained history, performing a medically appropriate examination, counseling and educating the pat ient/family/caregiver, ordering medications, tests, or procedures, and independently interpreting results (not separately reported). Jose Najera MD, CPE Hematology and Oncology Services Provided at: [place], [place] CC: Madelaine Ferris MD [address] [id number] Madelaine Ferris MD, [address] [id number] documented in this encounterOhiohealth Arthur G.[facility]. [facility] Center2022 History of Present illness Narrative* Alhaji Head DO - 02/24/2022 6:00 PM EDT VIRTUAL VISIT PROGRESS NOTE This is a virtual visit using [employer] video visit. 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 [facility] Center07-06-2022 Evaluation note* Encounter Date Diagnosis Assessment [...] see rheumatology and is on hydroxychloroquine. Her rn medicare is Dr. Ni. Dr. Ni and I [...] - R00.0) Nov, Flushing (ICD-10 - R23.2) [facility] Other 06-03-2022 Nurse Note* Lynne Ni MD - 10/24/2021 8:32 AM EDT See progress note documented in this encounterOhiohealth Arthur G.[facility]. [facility], [facility] Center06-03-2022 History of Present illness Narrative* Lynne [...] Due for eye exam. Labs sent to [facility]/completed in 06/2021 (no results faxed to office, [...] Date(s) Administered COVID-19 vaccine, age 12+ yr (Viratech - PURPLE TOP) 09/28/2020 10/19/2020 Pneumovax no [...] Diagnostic tests reviewed for today's visit: Outside [place] 06/2021 low vitamin D 16, vitamin b12-307;high [...] Due for eye exam. Labs sent to [facility]/completed in 06/2021 (no results faxed to office, [...] (200mg) daily with a meal Please see support representative every 6-12months while on Hydroxychloroquine. 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 With SOME difficulty Bend down to brass pickler clothing from the floor? With SOME difficulty [...] my health Strongly Agree documented in this encounterOhiohealth Arthur G.[facility]. [facility], [facility] Center06-03-2022 Instructions* Patient Instructions* Lynne Ni MD [...] (200mg) daily with a meal Please see support representative every 6-12months while on Hydroxychloroquine. Recommend goal: [...] touching your toes, sit-ups, using row machine 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 pain recommendations per primary care provider/pain clinic Thank you. documented in this encounterOhiohealth Arthur G.[facility]. [facility] Center05-25-2022 Evaluation note* Encounter Date Diagnosis Assessment [...] diagnosis I will defer that to her rn medicare. September, Tachycardia (ICD-10 - R00.0) September, Flushing (ICD-10 - R23.2) [facility] 04-28-2022 Evaluation note* Encounter Date Diagnosis Assessment Notes Treatment Notes Treatment Clinical Notes Aug, Elevated sed rate (ICD-10 - R70.0) [facility] Other 04-21-2022 Evaluation note* Encounter Date Diagnosis [...] diagnosis I will defer that to her rn medicare. [facility] Other 05-17-2021 Hospital Discharge instructions* Instructions* So [...] be sent through Care Everywhere. * amlodipine (Ugandan) * nitroglycerin (oral/sublingual) (Ugandan) documented in this [facility] [employer] Work Phone: 1(381) 574-272705-17-2021 History of Present illness Narrative* So [place] [...] needs to be completed. documented in this encounterVan Wert County HospitalCommnet Wireless Phone: 1(751) 971-110801-08-2015 History of Past illness Narrative* Problem Noted Date Resolved Date Obesity (BMI 30-39.9) 05/31/2014 07/06/2016 documented as of this encounter (statuses as of 10/24/2021) [facility] History of Past illness Narrative* Problem Noted Date Resolved Date Obesity (BMI 30-39.9) 05/31/2014 07/06/2016 documented as of this encounter (statuses as of 02/25/2022) [facility] History of Past illness Narrative* Problem Noted Date Resolved Date Obesity (BMI 30-39.9) 05/31/2014 07/06/2016 documented as of this encounter (statuses as of 03/02/2022) [facility] History of Past illness Narrative* Problem Noted Date Resolved Date Obesity (BMI 30-39.9) 05/31/2014 07/06/2016 documented as of this encounter (statuses as of 03/04/2022) [address]08-2015 History of Past illness Narrative* Problem Noted Date Resolved Date Obesity (BMI 30-39.9) 05/31/2014 07/06/2016 documented as of this encounter (statuses as of 03/05/2022) [address]08-2015 History of Past illness Narrative* Problem Noted Date Resolved Date Obesity (BMI 30-39.9) 05/31/2014 07/06/2016 documented as of this encounter (statuses as of 03/06/2022) [address]08-2015 History of Past illness Narrative* Problem Noted Date Resolved Date Obesity (BMI 30-39.9) 05/31/2014 07/06/2016 documented as of this encounter (statuses as of 03/09/2022) [address]08-2015 History of Past illness Narrative* Problem Noted Date Resolved Date Obesity (BMI 30-39.9) 05/31/2014 07/06/2016 documented as of this encounter (statuses as of 03/10/2022) [address]08-2015 History of Past illness Narrative* Problem Noted Date Resolved Date Obesity (BMI 30-39.9) 05/31/2014 07/06/2016 documented as of this encounter (statuses as of 03/10/2022) [address]08-2015 History of Past illness Narrative* Problem Noted Date Resolved Date Obesity (BMI 30-39.9) 05/31/2014 07/06/2016 documented as of this encounter (statuses as of 03/12/2022) [address]08-2015 History of Past illness Narrative* Problem Noted Date Resolved Date Obesity (BMI 30-39.9) 05/31/2014 07/06/2016 documented as of this encounter (statuses as of 03/18/2022) [address]08-2015 History of Past illness Narrative* Problem Noted Date Resolved Date Obesity (BMI 30-39.9) 05/31/2014 07/06/2016 documented as of this encounter (statuses as of 03/22/2022) [address]08-2015 History of Past illness Narrative* Problem Noted Date Resolved Date Obesity (BMI 30-39.9) 05/31/2014 07/06/2016 documented as of this encounter (statuses as of 03/30/2022) [address]08-2015 History of Past illness Narrative* Problem Noted Date Resolved Date Obesity (BMI 30-39.9) 05/31/2014 07/06/2016 documented as of this encounter (statuses as of 03/30/2022) [address]08-2015 History of Past illness Narrative* Problem Noted Date Resolved Date Obesity (BMI 30-39.9) 05/31/2014 07/06/2016 documented as of this encounter (statuses as of 04/03/2022) [address]08-2015 History of Past illness Narrative* Problem Noted Date Resolved Date Obesity (BMI 30-39.9) 05/31/2014 07/06/2016 documented as of this encounter (statuses as of 04/03/2022) [address]08-2015 History of Past illness Narrative* Problem Noted Date Resolved Date Obesity (BMI 30-39.9) 05/31/2014 07/06/2016 documented as of this encounter (statuses as of 04/22/2022) [address]08-2015 History of Past illness Narrative* Problem Noted Date Resolved Date Obesity (BMI 30-39.9) 05/31/2014 07/06/2016 documented as of this encounter (statuses as of 04/24/2022) [address]08-2015 History of Past illness Narrative* Problem Noted Date Resolved Date Obesity (BMI 30-39.9) 05/31/2014 07/06/2016 documented as of this encounter (statuses as of 05/05/2022) [address]08-2015 History of Past illness Narrative* Problem Noted Date Resolved Date Obesity (BMI 30-39.9) 05/31/2014 07/06/2016 documented as of this encounter (statuses as of 05/05/2022) [address]08-2015 History of Past illness Narrative* Problem Noted Date Resolved Date Obesity (BMI 30-39.9) 05/31/2014 07/06/2016 documented as of this encounter (statuses as of 05/05/2022) [address]08-2015 History of Past illness Narrative* Problem Noted Date Resolved Date Obesity (BMI 30-39.9) 05/31/2014 07/06/2016 documented as of this encounter (statuses as of 05/26/2022) [address]08-2015 History of Past illness Narrative* Problem Noted Date Resolved Date Obesity (BMI 30-39.9) 05/31/2014 07/06/2016 documented as of this encounter (statuses as of 05/27/2022) [address]08-2015 History of Past illness Narrative* Problem Noted Date Resolved Date Obesity (BMI 30-39.9) 05/31/2014 07/06/2016 documented as of this encounter (statuses as of 07/22/2022) [address]08-2015 History of Past illness Narrative* Problem Noted Date Resolved Date Obesity (BMI 30-39.9) 05/31/2014 07/06/2016 documented as of this encounter (statuses as of 07/25/2022) [address]08-2015 History of Past illness Narrative* Problem Noted Date Resolved Date Obesity (BMI 30-39.9) 05/31/2014 07/06/2016 documented as of this encounter (statuses as of 07/27/2022) [address]08-2015 History of Past illness Narrative* Problem Noted Date Resolved Date Obesity (BMI 30-39.9) 05/31/2014 07/06/2016 documented as of this encounter (statuses as of 07/28/2022) [address]08-2015 History of Past illness Narrative* Problem Noted Date Resolved Date Obesity (BMI 30-39.9) 05/31/2014 07/06/2016 documented as of this encounter (statuses as of 08/10/2022) [address]08-2015 History of Past illness Narrative* Problem Noted Date Resolved Date Obesity (BMI 30-39.9) 05/31/2014 07/06/2016 documented as of this encounter (statuses as of 08/18/2022) [address]08-2015 History of Past illness Narrative* Problem Noted Date Resolved Date Obesity (BMI 30-39.9) 05/31/2014 07/06/2016 documented as of this encounter (statuses as of 08/19/2022) [address]08-2015 History of Past illness Narrative* Problem Noted Date Resolved Date Obesity (BMI 30-39.9) 05/31/2014 07/06/2016 documented as of this encounter (statuses as of 08/27/2022) [address]08-2015 History of Past illness Narrative* Problem Noted Date Resolved Date Obesity (BMI 30-39.9) 05/31/2014 07/06/2016 documented as of this encounter (statuses as of 08/29/2022) [address]08-2015 History of Past illness Narrative* Problem Noted Date Resolved Date Obesity (BMI 30-39.9) 05/31/2014 07/06/2016 documented as of this encounter (statuses as of 08/31/2022) [address]08-2015 History of Past illness Narrative* Problem Noted Date Resolved Date Obesity (BMI 30-39.9) 05/31/2014 07/06/2016 documented as of this encounter (statuses as of 09/08/2022) [address]08-2015 History of Past illness Narrative* Problem Noted Date Resolved Date Obesity (BMI 30-39.9) 05/31/2014 07/06/2016 documented as of this encounter (statuses as of 09/08/2022) [address]08-2015 History of Past illness Narrative* Problem Noted Date Resolved Date Obesity (BMI 30-39.9) 05/31/2014 07/06/2016 documented as of this encounter (statuses as of 09/24/2022) [address]08-2015 History of Past illness Narrative* Problem Noted Date Resolved Date Obesity (BMI 30-39.9) 05/31/2014 07/06/2016 documented as of this encounter (statuses as of 10/22/2022) [address]08-2015 History of Past illness Narrative* Problem Noted Date Resolved Date Obesity (BMI 30-39.9) 05/31/2014 07/06/2016 documented as of this encounter (statuses as of 10/25/2022) [address]08-2015 History of Past illness Narrative* Problem Noted Date Resolved Date Obesity (BMI 30-39.9) 05/31/2014 07/06/2016 documented as of this encounter (statuses as of 11/19/2022) [address]08-2015 History of Past illness Narrative* Problem Noted Date Resolved Date Obesity (BMI 30-39.9) 05/31/2014 07/06/2016 documented as of this encounter (statuses as of 11/25/2022) [address]08-2015 History of Past illness Narrative* Problem Noted Date Diagnosed Date Resolved Date Obesity (BMI 30-39.9) 05/31/20142016 documented as of this encounter (statuses as of 12/08/2022) [address]08-2015 History of Past illness Narrative* Problem Noted Date Diagnosed Date Resolved Date Obesity (BMI 30-39.9) 05/31/20142016 documented as of this encounter (statuses as of 12/18/2022) [address]08-2015 History of Past illness Narrative* Problem Noted Date Diagnosed Date Resolved Date Obesity (BMI 30-39.9) 05/31/20142016 documented as of this encounter (statuses as of 12/18/2022) [address]08-2015 History of Past illness Narrative* Problem Noted Date Diagnosed Date Resolved Date Obesity (BMI 30-39.9) 05/31/20142016 documented as of this encounter (statuses as of 12/21/2022) [address]08-2015 History of Past illness Narrative* Problem Noted Date Diagnosed Date Resolved Date Obesity (BMI 30-39.9) 05/31/20142016 documented as of this encounter (statuses as of 12/22/2022) [address]08-2015 History of Past illness Narrative* Problem Noted Date Diagnosed Date Resolved Date Obesity (BMI 30-39.9) 05/31/20142016 documented as of this encounter (statuses as of 01/02/2023) [address]08-2015 History of Past illness Narrative* Problem Noted Date Diagnosed Date Resolved Date Obesity (BMI 30-39.9) 05/31/20142016 documented as of this encounter (statuses as of 01/13/2023) [address]08-2015 History of Past illness Narrative* Problem Noted Date Diagnosed Date Resolved Date Obesity (BMI 30-39.9) 05/31/20142016 documented as of this encounter (statuses as of 01/22/2023) [address]08-2015 History of Past illness Narrative* Problem Noted Date Diagnosed Date Resolved Date Obesity (BMI 30-39.9) 05/31/20142016 documented as of this encounter (statuses as of 01/26/2023) [address]08-2015 History of Past illness Narrative* Problem Noted Date Diagnosed Date Resolved Date Obesity (BMI 30-39.9) 05/31/20142016 documented as of this encounter (statuses as of 02/04/2023) [address] [address] History of Past illness Narrative* Problem Noted Date Diagnosed Date Resolved Date Obesity (BMI 30-39.9) 05/31/20142016 documented as of this encounter (statuses as of 02/04/2023) [address]2015 History of Past illness Narrative* Problem Noted Date Diagnosed Date Resolved Date Obesity (BMI 30-39.9) 05/31/20142016 documented as of this encounter (statuses as of 02/07/2023) [address] History of Past illness Narrative* Problem Noted Date Diagnosed Date Resolved Date Obesity (BMI 30-39.9) 05/31/20142016 documented as of this encounter (statuses as of 02/08/2023) [address] History of Past illness Narrative* Problem Noted Date Diagnosed Date Resolved Date Obesity (BMI 30-39.9) 05/31/20142016 documented as of this encounter (statuses as of 02/16/2023) [address] History of Past illness Narrative* Problem Noted Date Diagnosed Date Resolved Date Obesity (BMI 30-39.9) 05/31/20142016 documented as of this encounter (statuses as of 02/19/2023) [address] History of Past illness Narrative* Problem Noted Date Diagnosed Date Resolved Date Obesity (BMI 30-39.9) 05/31/20142016 documented as of this encounter (statuses as of 02/21/2023) [address] History of Past illness Narrative* Problem Noted Date Diagnosed Date Resolved Date Obesity (BMI 30-39.9) 05/31/20142016 documented as of this encounter (statuses as of 03/02/2023) [facility] Diagnosis Other systemic lupus erythematosus [...] and myositis, unspecified [facility] Diagnosis Swelling of lymph nodes- Primary Enlargement of lymph nodes Other systemic lupus erythematosus with other organ involvement (HCC) On prednisone therapy Hair loss Alopecia, unspecified Bilateral sacroiliitis (HCC) Long-term use of Plaquenil 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-term (current) use of other medications [facility] Vitamin B12 deficiency- Primary Other B-complex deficiencies Vitamin D deficiency Unspecified vitamin D deficiency Elevated sed rate Elevated sedimentation rate Elevated C-reactive protein (CRP) [facility] Diagnosis 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 Other vitamin B12 deficiency anemia Somnolence, daytime Hypersomnia, unspecified Snoring Other dyspnea and respiratory abnormality Chronic fatigue and malaise Chronic fatigue syndrome Obesity, unspecified classification, unspecified obesity type, unspecified whether serious comorbidity present [facility] Diagnosis Obesity, Class II, BMI 35-39.9- [...] nonspecific immunological findings [facility] Diagnosis 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 Other vitamin B12 deficiency anemia High total serum IgM [facility] Diagnosis Raised level of immunoglobulins- Primary Other and unspecified nonspecific immunological findings Wound healing, delayed Open wound(s) (multiple) of unspecified site(s), complicated Current smoker Tobacco use disorder [facility] Diagnosis Family history of genetic disease- Primary Family history of other condition [facility] Diagnosis High total serum IgM- Primary Elevated sed rate Elevated sedimentation rate Somnolence, daytime Hypersomnia, unspecified JOSE RAFAEL (obstructive sleep apnea) Obstructive sleep apnea (adult) (pediatric) [facility] Diagnosis 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 Other vitamin B12 deficiency anemia Elevated sed rate Elevated sedimentation rate [facility] Diagnosis 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 Other vitamin B12 deficiency anemia Elevated sed rate Elevated sedimentation rate High total serum IgM Chronic fatigue and malaise Chronic fatigue syndrome [facility] Diagnosis JOSE RAFAEL (obstructive sleep apnea)- Primary Obstructive sleep apnea (adult) (pediatric) [facility] Diagnosis Other systemic lupus erythematosus with other organ involvement (HCC)- Primary Family history of Crohn's disease Family history of other digestive disorders Fibromyalgia Mylagia and myositis, unspecified [facility] Diagnosis Other systemic lupus erythematosus with other organ involvement (HCC)- Primary Elevated LFTs Other abnormal blood chemistry Anemia of chronic disease Anemia of other chronic disease 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 assisted 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-term (current) use of other medications [facility] Diagnosis 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 Other vitamin B12 deficiency anemia Elevated sed rate Elevated sedimentation rate [facility] Diagnosis 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 Other vitamin B12 deficiency anemia Elevated sed rate Elevated sedimentation rate High total serum IgM Chronic fatigue and malaise Chronic fatigue syndrome JOSE RAFAEL (obstructive sleep apnea) Obstructive sleep apnea (adult) (pediatric) [facility] Diagnosis Vitamin D deficiency Unspecified vitamin D deficiency [facility]* Diagnosis Obesity, Class III, BMI >= 40- Primary Morbid obesity Polypharmacy 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-term (current) use of other medications Pre-diabetes Other abnormal glucose [facility] Diagnosis 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 Other vitamin B12 deficiency anemia Elevated sed rate Elevated sedimentation rate [facility] Diagnosis 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 Other vitamin B12 deficiency anemia Elevated sed rate Elevated sedimentation rate [facility] Diagnosis 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 Other vitamin B12 deficiency anemia Elevated sed rate Elevated sedimentation rate High total serum IgM Chronic fatigue and malaise Chronic fatigue syndrome Obstructive sleep apnea syndrome Obstructive sleep apnea (adult) (pediatric) documented [facility] Diagnosis 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 Other vitamin B12 deficiency anemia Elevated sed rate Elevated sedimentation rate [facility] Diagnosis Other systemic lupus erythematosus with other organ involvement (HCC) 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 assisted 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-term (current) use of other medications [facility] Diagnosis 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 Other vitamin B12 deficiency anemia Chronic fatigue and malaise Chronic fatigue syndrome [facility] Diagnosis High total serum IgM- Primary Low serum IgG for age Current smoker Tobacco use disorder [facility] Diagnosis Obesity, Class II, BMI 35-39.9 Obesity, unspecified Prediabetes Other abnormal glucose [facility] Diagnosis 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 Other vitamin B12 deficiency anemia Elevated sed rate Elevated sedimentation rate [facility] Diagnosis Other systemic lupus erythematosus with other organ involvement (HCC)- Primary Vitamin D deficiency Unspecified vitamin D deficiency Elevated LFTs Other abnormal blood chemistry Anemia of chronic disease Anemia of other chronic disease Elevated sed rate Elevated sedimentation rate Elevated C-reactive protein (CRP) [facility] Diagnosis Other systemic lupus erythematosus [...] Bilateral wrist pain 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, forearm shelter 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 [...] Elevated sedimentation rate [facility] Diagnosis Other systemic lupus erythematosus with other organ involvement (HCC)- Primary [facility] Diagnosis Other systemic lupus erythematosus with other organ involvement (HCC) 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-term (current) use of other medications [facility] Diagnosis 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 Other vitamin B12 deficiency anemia Elevated sed rate Elevated sedimentation rate [facility] Diagnosis 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 Other vitamin B12 deficiency anemia Elevated sed rate Elevated sedimentation rate Chronic fatigue and malaise Chronic fatigue syndrome High total serum IgM JOSE RAFAEL (obstructive sleep apnea) Obstructive sleep apnea (adult) (pediatric) [facility]* Diagnosis Insulin resistance, unspecified- Primary Depression, recurrent (HCC) Major depressive disorder, recurrent episode, unspecified Chronic pain syndrome [facility] Diagnosis Systemic lupus erythematosus, unspecified SLE type, unspecified organ involvement status (HCC)- Primary [facility]* Diagnosis 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 Other vitamin B12 deficiency anemia Elevated sed rate Elevated sedimentation rate [facility]* Diagnosis 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 Other vitamin B12 deficiency anemia Elevated sed rate Elevated sedimentation rate [facility] Diagnosis Obesity, Class III, BMI >= 40- Primary Morbid obesity FUO (fever of unknown origin) Fever, unspecified Other chronic pain documented in this encounter [facility] note* Diagnosis Obesity, Class III, BMI >= 40 Morbid obesity documented in this encounter [facility] note* Diagnosis Obesity, Class III, BMI >= 40- Primary Morbid obesity Other chronic pain documented in this encounter [facility] note* Diagnosis Irregular heart rate- Primary Essential hypertension Unspecified essential hypertension Autonomic dysfunction Obstructive sleep apnea syndrome Obstructive sleep apnea (adult) (pediatric) Primary hypertension Unspecified essential hypertension documented in this encounter [facility] Work Phone: Evaluation note* Diagnosis Autoimmune disease (CMS/HCC)- Primary Autoimmune disease, not elsewhere classified Autonomic dysfunction Lumbosacral radiculopathy Thoracic or lumbosacral neuritis or radiculitis, unspecified Bilateral leg weakness Muscle weakness (generalized) documented in this encounter [facility]* Diagnosis Shortness of breath- Primary Paroxysmal supraventricular tachycardia PAC (premature atrial contraction) Supraventricular premature beats Current smoker Systemic lupus erythematosus, unspecified SLE type, unspecified organ involvement status (CMS/HCC) Palpitations Obstructive sleep apnea syndrome Obstructive sleep apnea (adult) (pediatric) Morbid obesity (CMS/HCC) Morbid obesity Bilateral lower extremity edema documented in this encounter [facility] Work Phone: Evaluation note* Diagnosis 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 Other vitamin B12 deficiency anemia Elevated sed rate Elevated sedimentation rate documented in this encounter [facility] note* Diagnosis Systemic lupus erythematosus with other organ involvement (HCC)- Primary [facility] Diagnosis Systemic lupus erythematosus with other organ involvement (HCC)- Primary [facility]* Diagnosis 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 Other vitamin B12 deficiency anemia Elevated sed rate Elevated sedimentation rate documented in this encounter [facility] note* Diagnosis Other systemic lupus erythematosus with other organ involvement (HCC)- Primary Vitamin D deficiency Unspecified vitamin D deficiency Elevated LFTs Other abnormal blood chemistry Anemia of chronic disease Anemia of other chronic disease Elevated sed rate Elevated sedimentation rate Elevated C-reactive protein (CRP) [facility]* Diagnosis 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 Other vitamin B12 deficiency anemia Obstructive sleep apnea syndrome Obstructive sleep apnea (adult) (pediatric) Chronic fatigue and malaise Chronic fatigue syndrome High total serum IgM JOSE RAFAEL (obstructive sleep apnea) Obstructive sleep apnea (adult) (pediatric) Somnolence, daytime Hypersomnia, unspecified [facility] Diagnosis Elevated sed rate- Primary Elevated sedimentation rate Megaloblastic anemia due to vitamin B12 deficiency Other vitamin B12 deficiency anemia [facility] [...] Long-term use of high-risk medication 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-term (current) use of steroids 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 Bilateral hand pain Pain in limb History of vitamin D deficiency Personal history of nutritional deficiency [facility] Diagnosis Elevated sed rate- Primary Elevated sedimentation rate Megaloblastic anemia due to vitamin B12 deficiency Other vitamin B12 deficiency anemia [facility]* Diagnosis Other systemic lupus erythematosus with other organ involvement (HCC) 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-term (current) use of other medications [facility] Diagnosis Systemic lupus erythematosus with other organ involvement (HCC)- Primary [facility]* Diagnosis Vitamin B12 deficiency- Primary Other B-complex deficiencies [facility]* Diagnosis Elevated sed rate- Primary Elevated sedimentation rate Megaloblastic anemia due to vitamin B12 deficiency Other vitamin B12 deficiency anemia [facility] Diagnosis Elevated sed rate- Primary Elevated sedimentation rate Megaloblastic anemia due to vitamin B12 deficiency Other vitamin B12 deficiency anemia [facility] Diagnosis 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 Other vitamin B12 deficiency anemia Elevated sed rate Elevated sedimentation rate Obstructive sleep apnea syndrome Obstructive sleep apnea (adult) (pediatric) [facility] Diagnosis Elevated LFTs- Primary Other abnormal blood chemistry Elevated C-reactive protein (CRP) Elevated sed rate Elevated sedimentation rate Vitamin D deficiency Unspecified vitamin D deficiency Screening-pulmonary TB Screening examination for pulmonary tuberculosis [facility]* Diagnosis Other systemic lupus erythematosus with other organ involvement (HCC) [facility]* Diagnosis Systemic lupus erythematosus with other organ involvement (HCC)- Primary [facility]* Diagnosis Elevated sed rate- Primary Elevated sedimentation rate Megaloblastic anemia due to vitamin B12 deficiency Other vitamin B12 deficiency anemia documented in this encounter [facility] note* Diagnosis Pseudomonas infection- Primary Pseudomonas infection in conditions classified elsewhere and of unspecified site Other systemic lupus erythematosus with other organ involvement (HCC) On prednisone therapy Long-term use of Plaquenil 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-term (current) use of other medications documented in this encounter [facility] note* Diagnosis Onset Date Resolution Status Lupus acute Recurrent Clostridioides difficile diarrhea acute Nipple discharge in female a cute Recurrent Clostridioides difficile diarrhea acute Lumbosacral spondylosis acut e Other chronic pain acute Sacroiliitis [facility] Work Phone: Evaluation note* Diagnosis JOSE RAFAEL (obstructive sleep apnea)- Primary Obstructive sleep apnea (adult) (pediatric) Somnolence, daytime Hypersomnia, unspecified documented in this encounter [facility] note* Diagnosis Systemic lupus erythematosus with other organ involvement (HCC)- Primary documented in this encounter [facility] note* Diagnosis Systemic lupus erythematosus with other organ involvement (HCC)- Primary documented in this encounter [facility] note* Diagnosis Onset Date Resolution Status Nipple discharge in female a cute Recurrent Clostridioides difficile diarrhea acute Lumbosacral spondylosis acut e Other chronic pain acute Sacroiliitis [facility] Work Phone: History general Narrative - Reported* Type Description Date Medical History hyperlipidemia Medical History insulin resistance Medical History CMV Surgical History cyst removal pilonidal Surgical History D&C Hospitalization History LCO Creation Other Reason for referral (narrative)* Diagnostic Procedure Only (Routine) - Pending Review Specialty Diagnoses / Procedures Referred By Contac t Referred To Contact XR IMAGING Diagnoses Steroid-induced osteoporosis Procedures DXA-FOREARM SKELETON DXA BONE DENSITY STUDY 1/SITES APPENDICLR Lynne Perera MD [address] [place] [address] [place] [id number] Referral ID Status Reason Start Date Expiration Date Visits Requested Visits Authorized [id number] Pending Review Auto-Generat ed Referral 02/04/2023 03/05/2024 1 1 [facility] for referral (narrative)* Consultation (Routine) - Authorized Specialty Diagnoses / Procedures Referred By Contac t Referred To Contact Cardiology Diagnoses Irregular heart rate Essential hypertension Autonomic dysfunction Obstructive sleep apnea syndrome Primary hypertension Procedures Follow Up In Cardiology Michelle Britton APRN-CNP [address] [facility] [address] [place] [address] Aurora Patel MD [address] [address] Referral ID Status Reason Start Date Expiration Date V isits Requested Visits Authorized [id number] Authorized 06/09/2023 06/08/2024 1 1 * Cardiovascular (Routine) - Pending Review Specialty Diagnoses / Procedures Referred By Contac t Referred To Contact Cardiology Diagnoses Irregular heart rate Procedures 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 Michelle Britton APRN-CNP [address] [facility] [address] [place] [address] Referral ID Status Reason Start Date Expiration Date V isits Requested Visits Authorized Pending Review 06/09/2023 06/08/2024 1 1 * CV Imaging (Routine) - Pending Review Specialty Diagnoses / Procedures Referred By Contac t Referred To Contact Cardiology Diagnoses Irregular heart rate Obstructive sleep apnea syndrome Procedures Transthoracic Echo (TTE) Complete [place] ECHO TTHRC R-T 2D W/WOM-MODE COMPL SPEC&COLR D Michelle Britton, PREPARATION SUPERVISOR [employer]ATE[employer]IC SOURCING CONSULTANT [address] [facility] [address] [place] [address] Referral ID Status Reason Start Date Expiration Date Visits Requested Visits Authorized Pending Review Perform Procedure 06/09/2023 06/08/2024 1 1 Electronically signed by Michelle Britton PREPARATION SUPERVISOR [facility] at 06/09/2023 9:43 AM EST * Cardiovascular (Routine) - Authorized Specialty Diagnoses / Procedures [facility] Referred To Contact Diagnoses Irregular heart rate Procedures ECG 12 Lead Michelle Britton, PREPARATION SUPERVISOR [employer]ATEGIC SOURCING CONSULTANT [address] [facility] [address] [place] [address] Referral ID Status Reason Start Date Expiration Date V isits Requested Visits Authorized [id number] Authorized 06/09/2023 06/08/2024 1 1 Electronically signed by Michelle Britton PREPARATION SUPERVISOR [facility] at 06/09/2023 8:28 AM EST [facility] Work Phone: Summary Purpose Family History No Family History Records Found Relationship Condition Age at Onset Recorded Date/T michelle father Unknown Malignant neoplasm Unknown Advance Directives No Advanced Directives Records FoundDocuments on File Type Date Recorded Patient Technology Integration Specialist Expl anation ACP-Advance Directive ACP-Power of Res Habilitation Assistant Latest Code Status on File Code Status Date Activated Date Inactivated Comments Full Code 10/07/2020 8:32 AM Documents on File Type Date Recorded Patient Technology Integration Specialist Expl anation Advance Directive(s) 09/13/2015 8:36 AM Advance Directive Response Recorded Date/ Time Advance Directives No September 17, 019 2:40pm Reason for Referral Specialty Diagnoses / Procedures [facility] Referred To Contact Diagnoses Paroxysmal supraventricular tachycardia PAC (premature atrial contraction) Procedures ECG 12 Lead Lois Holm MD [address] [facility] [address] [place] [address] Referral ID Status Reason Start Date Expiration Date V isits Requested Visits Authorized [id number] Authorized 07/13/2023 07/12/2024 1 1 Specialty Diagnoses / Procedures Referred By Contac t Referred To Contact Cardiology Diagnoses Shortness of breath Paroxysmal supraventricular tachycardia PAC (premature atrial contraction) Procedures Follow Up In Cardiology Lois Holm MD [address] [facility] [address] [place] [id number] Lois Holm MD [address] [facility] [address] [place] [address] Referral ID Status Reason Start Date Expiration Date V isits Requested Visits Authorized [id number] Authorized 07/13/2023 07/12/2024 1 1 Specialty Diagnoses / Procedures Referred By Contac t Referred To Contact Diagnoses Obesity, Class III, BMI 40-49.9 (morbid obesity) (HCC) Pre-diabetes Christie Phan MD [address] [place] [address] Referral ID Status Reason Start Date Expiration Date Visits Re quested Visits Authorized [id number] Closed 1 1 Specialty Diagnoses / Procedures Referred By Contac t Referred To Contact Diagnoses Wound healing, delayed Procedures CONSULT TO MEDICAL GENETICS - GENERAL OFFICE/OUTPATIENT [facility] 60-74 MINUTES MEDICAL GENETICS COUNSELING EACH 30 MINUTES Misty Neslon MD [address] [place] [id number] [facility] [place] [address] [place] [id number] Referral ID Status Reason Start Date Expiration Date Visits Requested Visits Authorized [id number] Authorized PCP Requested Referral Auto-Generate d Referral 2 03/10/2023 1 1 Specialty Diagnoses / Procedures Referred By Contac t Referred To Contact Neurology Diagnoses POTS (postural orthostatic tachycardia syndrome) Procedures CONSULT TO NEUROLOGY OFFICE/OUTPATIENT [facility] 60-74 MINUTES Christie Phan MD [address] [place] [address] Referral ID Status Reason Start Date Expiration Date Visits Requested Visits Authorized [id number] Authorized PCP Requested Referral 2 03/12/2023 1 1 Specialty Diagnoses / Procedures Referred By Contac t Referred To Contact Immunology Diagnoses Raised level of immunoglobulins Procedures CONSULT TO IMMUNOLOGY OFFICE/OUTPATIENT [facility] 60-74 MINUTES Christie Phan MD [address] [place] [id number] Referral ID Status Reason Start Date Expiration Date V isits Requested Visits Authorized [id number] Closed PCP Requested Referral 03/09/2022 03/09/2023 1 1 Specialty Diagnoses / Procedures Referred By Contac t Referred To Contact [facility] Diagnoses Somnolence, daytime Snoring Procedures HOME SLEEP APNEA TEST (HSAT) SLEEP STD AIRFLOW HRT RATE&O2 SAT EFFORT UNATT Christie Phan MD [address] [place] [id number] [facility] [address] [place] [address] Referral ID Status Reason Start Date Expiration Date Visits Requested Visits Authorized [id number] Authorized Auto-Generat ed Referral 2 03/09/2023 1 1 Specialty Diagnoses / Procedures Referred By Contac t Referred To Contact Diagnoses Somnolence, daytime Chronic fatigue and malaise Obesity, unspecified classification, unspecified obesity type, unspecified whether serious comorbidity present Procedures CONSULT TO LIFESTYLE MEDICINE MD OFFICE/OUTPATIENT [facility] 60-74 MINUTES Jose Najera MD [address] [place] [address] [place] [address] Referral ID Status Reason Start Date Expiration Date V isits Requested Visits Authorized [id number] Closed PCP Requested Referral 03/04/2022 03/04/2023 1 1 Specialty Diagnoses / Procedures Referred By Contac t Referred To Contact Diagnoses Somnolence, daytime Snoring Procedures CONSULT TO SLEEP MEDICINE - ADULT OFFICE/OUTPATIENT [facility] 60-74 MINUTES Jose Najera MD [facility] [place] [address] Referral ID Status Reason Start Date Expiration Date Visits Requested Visits Authorized [id number] Authorized PCP Requested Referral 2 03/04/2023 1 [...] reflux disease) Lupus Recurrent Clostridioides difficile diarrhea Chief Complaint cdiff cdiff Patient here for a 2 week f/u in office Patient here for a 1 month f/u Reason for Visit Abdominal pressure C. difficile diarrhea Diarrhea GERD (gastroesophageal reflux disease) Lupus Recurrent Clostridioides difficile diarrhea Lupus Recurrent Clostridioides difficile diarrhea Chief Complaint Patient here for a 2 week f/u in office Patient here for a 1 month f/u REFF BY DR. JOSUE RICHARDSON Reason for Visit Lupus Recurrent Clostridioides difficile diarrhea Nipple discharge in female Recurrent Clostridioides difficile diarrhea Lumbosacral spondylosis Other chronic pain Sacroiliitis Chief Complaint Patient here for a 1 month f/u REFF BY DR. JOSUE RICHARDSON Back Pain Reason for Visit Nipple discharge in female Recurrent Clostridioides difficile diarrhea Lumbosacral spondylosis Other chronic pain Sacroiliitis Additional Source Comments INFORMATION SOURCE (unrecogn ized section and content) DATE CREATED AUTHOR 09/20/2018 [facility] DATE CREATED AUTHOR AUTHOR'S ORGANIZ ATION 12/10/2018 [facility] DATE CREATED AUTHOR AUTHOR'S ORGANIZ ATION 01/13/2019 [facility] DATE CREATED AUTHOR AUTHOR'S ORGANIZ ATION 06/28/2021 [facility] DATE CREATED AUTHOR AUTHOR'S ORGANIZ ATION 10/01/2022 [facility] DATE CREATED AUTHOR AUTHOR'S ORGANIZ ATION 12/26/2023 [facility] DATE CREATED AUTHOR AUTHOR'S ORGANIZ ATION 01/29/2024 [facility] DATE CREATED AUTHOR AUTHOR'S ORGANIZ ATION 02/11/2024 [facility] DATE CREATED AUTHOR AUTHOR'S ORGANIZ ATION 02/18/2024 [facility] DATE CREATED AUTHOR AUTHOR'S ORGANIZ ATION 02/20/2024 [facility] Reason for Visit (unrecogniz ed section and content) Status Reason Specialty Diagnoses / Procedures Referre d By Contact Referred To Contact [employer] Reason Comments Pain ongoing generalized pain. Reason [...] HIGH MDM 60-74 MINUTES Jose Najera MD [address] [place] [address] [place] [address] Referral ID Status Reason Start Date Expiration Date V isits Requested Visits Authorized [id number] Closed PCP Requested Referral 03/04/2022 03/04/2023 1 1 Reason Comments High Total serum IgM Anemia Reason Comments Consult Specialty Diagnoses / Procedures Referred By Contac t Referred To Contact Immunology Diagnoses Raised level of immunoglobulins Procedures CONSULT TO IMMUNOLOGY OFFICE/OUTPATIENT NEW HIGH MDM 60-[place] [address] [place] [address] Referral ID Status Reason Start Date Expiration Date V isits Requested Visits Authorized [id number] Closed PCP Requested Referral 03/09/2022 03/09/2023 1 1 Reason Comments Pneumovax Reason Comments Refill Request Reason Comments Appointment Fingerprint Classifier - Other Reason Comments Future Appointment Scheduling questions /concerns Reason Comments PAP Therapy Follow Up Reason Comments PAP Rx Faxed YUNIOR Reese Reason Comments Anemia 8 week follow [...] rate Procedures ECG 12 Lead Michelle Britton, PREPARATION SUPERVISOR [employer] [address] [facility] [address] [place] [address] Referral ID Status Reason Start Date Expiration Date V isits Requested Visits Authorized [id number] Authorized 06/09/2023 06/08/2024 1 1 Reason Comments New Patient Visit Leg Swelling, test r esults from [place] Specialty Diagnoses / Procedures Referred By Contac t Referred To Contact Diagnoses Paroxysmal supraventricular tachycardia PAC (premature atrial contraction) Procedures ECG 12 Lead Lois Holm MD [address] [facility] 2, [facility] [address] [place] [address] Referral ID Status Reason Start Date Expiration Date V isits Requested Visits Authorized [id number] Authorized 07/13/2023 07/12/2024 1 1 Reason Onset [...] Medication Refill 11/15/2023 Benlysta - NCA 09/2024 Reason Onset Date Comments SPP Inflammatory Conditions - Medication Refill 12/13/2023 Ben[facility]sta - NCA 09/2024 Reason Onset Date Comments SPP Inflammatory Conditions - Medication Refill 01/18/2024 Ben[facility]sta Reason Comments Infection Follow Up Reason Onset Date Comments SPP Inflammatory Conditions - Medication Refill 02/14/2024 Benlysta - NCA 09/2024 Reason Onset Date Comments SPP Inflammatory Conditions - Follow-up 02/14/20 24 [facility] Insurance Authorization 02/14/2024 KELVIN zhu Submitted Reason Comments Orders PAP RX. Ordered Prescriptions (unrec ognized section and content) [...] or prosecute any alcohol or drug abuse patient.[facility] CenterIn the event this information is protected by the Federal Confidentiality of Alcohol and Drug Abuse Patient Records regulations: The Federal rules restrict any use of the information to criminally investigate or prosecute any alcohol or drug abuse patient.[facility] CenterIn the event this information is protected by the Federal Confidentiality of Alcohol and Drug Abuse Patient Records regulations: The Federal rules restrict any use of the information to criminally investigate or prosecute any alcohol or drug abuse patient.[facility] CenterIn the event this information is protected by the Federal Confidentiality of Alcohol and Drug Abuse Patient Records regulations: The Federal rules restrict any use of the information to criminally investigate or prosecute any alcohol or drug abuse patient.[facility] CenterIn the event this information is protected by the Federal Confidentiality of Alcohol and Drug Abuse Patient Records regulations: The Federal rules restrict any use of the information to criminally investigate or prosecute any alcohol or drug abuse patient.[facility] CenterIn the event this information is protected by the Federal Confidentiality of Alcohol and Drug Abuse Patient Records regulations: The Federal rules restrict any use of the information to criminally investigate or prosecute any alcohol or drug abuse patient.[facility] CenterIn the event this information is protected by the Federal Confidentiality of Alcohol and Drug Abuse Patient Records regulations: The Federal rules restrict any use of the information to criminally investigate or prosecute any alcohol or drug abuse patient.[facility] CenterIn the event this information is protected by the Federal Confidentiality of Alcohol and Drug Abuse Patient Records regulations: The Federal rules restrict any use of the information to criminally investigate or prosecute any alcohol or drug abuse patient.[facility] CenterIn the event this information is protected by the Federal Confidentiality of Alcohol and Drug Abuse Patient Records regulations: The Federal rules restrict any use of the information to criminally investigate or prosecute any alcohol or drug abuse patient.[facility] CenterIn the event this information is protected by the Federal Confidentiality of Alcohol and Drug Abuse Patient Records regulations: The Federal rules restrict any use of the information to criminally investigate or prosecute any alcohol or drug abuse patient.[facility] CenterIn the event this information is protected by the Federal Confidentiality of Alcohol and Drug Abuse Patient Records regulations: The Federal rules restrict any use of the information to criminally investigate or prosecute any alcohol or drug abuse patient.[facility] CenterIn the event this information is protected by the Federal Confidentiality of Alcohol and Drug Abuse Patient Records regulations: The Federal rules restrict any use of the information to criminally investigate or prosecute any alcohol or drug abuse patient.[facility] CenterIn the event this information is protected by the Federal Confidentiality of Alcohol and Drug Abuse Patient Records regulations: The Federal rules restrict any use of the information to criminally investigate or prosecute any alcohol or drug abuse patient.[facility] CenterIn the event this information is protected by the Federal Confidentiality of Alcohol and Drug Abuse Patient Records regulations: The Federal rules restrict any use of the information to criminally investigate or prosecute any alcohol or drug abuse patient.[facility] CenterIn the event this information is protected by the Federal Confidentiality of Alcohol and Drug Abuse Patient Records regulations: The Federal rules restrict any use of the information to criminally investigate or prosecute any alcohol or drug abuse patient.[facility] CenterIn the event this information is protected by the Federal Confidentiality of Alcohol and Drug Abuse Patient Records regulations: The Federal rules restrict any use of the information to criminally investigate or prosecute any alcohol or drug abuse patient.[facility] CenterIn the event this information is protected by the Federal Confidentiality of Alcohol and Drug Abuse Patient Records regulations: The Federal rules restrict any use of the information to criminally investigate or prosecute any alcohol or drug abuse patient.[facility] CenterIn the event this information is protected by the Federal Confidentiality of Alcohol and Drug Abuse Patient Records regulations: The Federal rules restrict any use of the information to criminally investigate or prosecute any alcohol or drug abuse patient.[facility] CenterIn the event this information is protected by the Federal Confidentiality of Alcohol and Drug Abuse Patient Records regulations: The Federal rules restrict any use of the information to criminally investigate or prosecute any alcohol or drug abuse patient.[facility] CenterIn the event this information is protected by the Federal Confidentiality of Alcohol and Drug Abuse Patient Records regulations: The Federal rules restrict any use of the information to criminally investigate or prosecute any alcohol or drug abuse patient.[facility] CenterIn the event this information is protected by the Federal Confidentiality of Alcohol and Drug Abuse Patient Records regulations: The Federal rules restrict any use of the information to criminally investigate or prosecute any alcohol or drug abuse patient.[facility] CenterIn the event this information is protected by the Federal Confidentiality of Alcohol and Drug Abuse Patient Records regulations: The Federal rules restrict any use of the information to criminally investigate or prosecute any alcohol or drug abuse patient.[facility] CenterIn the event this information is protected by the Federal Confidentiality of Alcohol and Drug Abuse Patient Records regulations: The Federal rules restrict any use of the information to criminally investigate or prosecute any alcohol or drug abuse patient.[facility] CenterIn the event this information is protected by the Federal Confidentiality of Alcohol and Drug Abuse Patient Records regulations: The Federal rules restrict any use of the information to criminally investigate or prosecute any alcohol or drug abuse patient.[facility] CenterIn the event this information is protected by the Federal Confidentiality of Alcohol and Drug Abuse Patient Records regulations: The Federal rules restrict any use of the information to criminally investigate or prosecute any alcohol or drug abuse patient.[facility] CenterIn the event this information is protected by the Federal Confidentiality of Alcohol and Drug Abuse Patient Records regulations: The Federal rules restrict any use of the information to criminally investigate or prosecute any alcohol or drug abuse patient.[facility] CenterIn the event this information is protected by the Federal Confidentiality of Alcohol and Drug Abuse Patient Records regulations: The Federal rules restrict any use of the information to criminally investigate or prosecute any alcohol or drug abuse patient.[facility] CenterIn the event this information is protected by the Federal Confidentiality of Alcohol and Drug Abuse Patient Records regulations: The Federal rules restrict any use of the information to criminally investigate or prosecute any alcohol or drug abuse patient.[facility] CenterIn the event this information is protected by the Federal Confidentiality of Alcohol and Drug Abuse Patient Records regulations: The Federal rules restrict any use of the information to criminally investigate or prosecute any alcohol or drug abuse patient.[facility] CenterIn the event this information is protected by the Federal Confidentiality of Alcohol and Drug Abuse Patient Records regulations: The Federal rules restrict any use of the information to criminally investigate or prosecute any alcohol or drug abuse patient.[facility] CenterIn the event this information is protected by the Federal Confidentiality of Alcohol and Drug Abuse Patient Records regulations: The Federal rules restrict any use of the information to criminally investigate or prosecute any alcohol or drug abuse patient.[facility] CenterIn the event this information is protected by the Federal Confidentiality of Alcohol and Drug Abuse Patient Records regulations: The Federal rules restrict any use of the information to criminally investigate or prosecute any alcohol or drug abuse patient.[facility] CenterIn the event this information is protected by the Federal Confidentiality of Alcohol and Drug Abuse Patient Records regulations: The Federal rules restrict any use of the information to criminally investigate or prosecute any alcohol or drug abuse patient.[facility]In the event this information is protected by the Federal Confidentiality of Alcohol and Drug Abuse Patient Records regulations: The Federal rules restrict any use of the information to criminally investigate or prosecute any alcohol or drug abuse patient.[facility] CenterIn the event this information is protected by the Federal Confidentiality of Alcohol and Drug Abuse Patient Records regulations: The Federal rules restrict any use of the information to criminally investigate or prosecute any alcohol or drug abuse patient.[facility] CenterIn the event this information is protected by the Federal Confidentiality of Alcohol and Drug Abuse Patient Records regulations: The Federal rules restrict any use of the information to criminally investigate or prosecute any alcohol or drug abuse patient.[facility] CenterIn the event this information is protected by the Federal Confidentiality of Alcohol and Drug Abuse Patient Records regulations: The Federal rules restrict any use of the information to criminally investigate or prosecute any alcohol or drug abuse patient.[facility] CenterIn the event this information is protected by the Federal Confidentiality of Alcohol and Drug Abuse Patient Records regulations: The Federal rules restrict any use of the information to criminally investigate or prosecute any alcohol or drug abuse patient.[facility] CenterIn the event this information is protected by the Federal Confidentiality of Alcohol and Drug Abuse Patient Records regulations: The Federal rules restrict any use of the information to criminally investigate or prosecute any alcohol or drug abuse patient.[facility] CenterIn the event this information is protected by the Federal Confidentiality of Alcohol and Drug Abuse Patient Records regulations: The Federal rules restrict any use of the information to criminally investigate or prosecute any alcohol or drug abuse patient.[facility] CenterIn the event this information is protected by the Federal Confidentiality of Alcohol and Drug Abuse Patient Records regulations: The Federal rules restrict any use of the information to criminally investigate or prosecute any alcohol or drug abuse patient.[facility] CenterIn the event this information is protected by the Federal Confidentiality of Alcohol and Drug Abuse Patient Records regulations: The Federal rules restrict any use of the information to criminally investigate or prosecute any alcohol or drug abuse patient.[facility] CenterIn the event this information is protected by the Federal Confidentiality of Alcohol and Drug Abuse Patient Records regulations: The Federal rules restrict any use of the information to criminally investigate or prosecute any alcohol or drug abuse patient.[facility] CenterIn the event this information is protected by the Federal Confidentiality of Alcohol and Drug Abuse Patient Records regulations: The Federal rules restrict any use of the information to criminally investigate or prosecute any alcohol or drug abuse patient.[facility] CenterIn the event this information is protected by the Federal Confidentiality of Alcohol and Drug Abuse Patient Records regulations: The Federal rules restrict any use of the information to criminally investigate or prosecute any alcohol or drug abuse patient.[facility] CenterIn the event this information is protected by the Federal Confidentiality of Alcohol and Drug Abuse Patient Records regulations: The Federal rules restrict any use of the information to criminally investigate or prosecute any alcohol or drug abuse patient.[facility] CenterIn the event this information is protected by the Federal Confidentiality of Alcohol and Drug Abuse Patient Records regulations: The Federal rules restrict any use of the information to criminally investigate or prosecute any alcohol or drug abuse patient.[facility] CenterIn the event this information is protected by the Federal Confidentiality of Alcohol and Drug Abuse Patient Records regulations: The Federal rules restrict any use of the information to criminally investigate or prosecute any alcohol or drug abuse patient.[facility] CenterIn the event this information is protected by the Federal Confidentiality of Alcohol and Drug Abuse Patient Records regulations: The Federal rules restrict any use of the information to criminally investigate or prosecute any alcohol or drug abuse patient.[facility] CenterIn the event this information is protected by the Federal Confidentiality of Alcohol and Drug Abuse Patient Records regulations: The Federal rules restrict any use of the information to criminally investigate or prosecute any alcohol or drug abuse patient.[facility] CenterIn the event this information is protected by the Federal Confidentiality of Alcohol and Drug Abuse Patient Records regulations: The Federal rules restrict any use of the information to criminally investigate or prosecute any alcohol or drug abuse patient.[facility] CenterIn the event this information is protected by the Federal Confidentiality of Alcohol and Drug Abuse Patient Records regulations: The Federal rules restrict any use of the information to criminally investigate or prosecute any alcohol or drug abuse patient.[facility] CenterIn the event this information is protected by the Federal Confidentiality of Alcohol and Drug Abuse Patient Records regulations: The Federal rules restrict any use of the information to criminally investigate or prosecute any alcohol or drug abuse patient.[facility] CenterIn the event this information is protected by the Federal Confidentiality of Alcohol and Drug Abuse Patient Records regulations: The Federal rules restrict any use of the information to criminally investigate or prosecute any alcohol or drug abuse patient.[facility] CenterIn the event this information is protected by the Federal Confidentiality of Alcohol and Drug Abuse Patient Records regulations: The Federal rules restrict any use of the information to criminally investigate or prosecute any alcohol or drug abuse patient.[facility] CenterIn the event this information is protected by the Federal Confidentiality of Alcohol and Drug Abuse Patient Records regulations: The Federal rules restrict any use of the information to criminally investigate or prosecute any alcohol or drug abuse patient.[facility] CenterIn the event this information is protected by the Federal Confidentiality of Alcohol and Drug Abuse Patient Records regulations: The Federal rules restrict any use of the information to criminally investigate or prosecute any alcohol or drug abuse patient.[facility] CenterIn the event this information is protected by the Federal Confidentiality of Alcohol and Drug Abuse Patient Records regulations: The Federal rules restrict any use of the information to criminally investigate or prosecute any alcohol or drug abuse patient.[facility] CenterIn the event this information is protected by the Federal Confidentiality of Alcohol and Drug Abuse Patient Records regulations: The Federal rules restrict any use of the information to criminally investigate or prosecute any alcohol or drug abuse patient.[facility] CenterIn the event this information is protected by the Federal Confidentiality of Alcohol and Drug Abuse Patient Records regulations: The Federal rules restrict any use of the information to criminally investigate or prosecute any alcohol or drug abuse patient.[facility] CenterIn the event this information is protected by the Federal Confidentiality of Alcohol and Drug Abuse Patient Records regulations: The Federal rules restrict any use of the information to criminally investigate or prosecute any alcohol or drug abuse patient.[facility] CenterIn the event this information is protected by the Federal Confidentiality of Alcohol and Drug Abuse Patient Records regulations: The Federal rules restrict any use of the information to criminally investigate or prosecute any alcohol or drug abuse patient.[facility] CenterIn the event this information is protected by the Federal Confidentiality of Alcohol and Drug Abuse Patient Records regulations: The Federal rules restrict any use of the information to criminally investigate or prosecute any alcohol or drug abuse patient.[facility] CenterIn the event this information is protected by the Federal Confidentiality of Alcohol and Drug Abuse Patient Records regulations: The Federal rules restrict any use of the information to criminally investigate or prosecute any alcohol or drug abuse patient.[facility] CenterIn the event this information is protected by the Federal Confidentiality of Alcohol and Drug Abuse Patient Records regulations: The Federal rules restrict any use of the information to criminally investigate or prosecute any alcohol or drug abuse patient.[facility] CenterIn the event this information is protected by the Federal Confidentiality of Alcohol and Drug Abuse Patient Records regulations: The Federal rules restrict any use of the information to criminally investigate or prosecute any alcohol or drug abuse patient.[facility] CenterIn the event this information is protected by the Federal Confidentiality of Alcohol and Drug Abuse Patient Records regulations: The Federal rules restrict any use of the information to criminally investigate or prosecute any alcohol or drug abuse patient.[facility] CenterIn the event this information is protected by the Federal Confidentiality of Alcohol and Drug Abuse Patient Records regulations: The Federal rules restrict any use of the information to criminally investigate or prosecute any alcohol or drug abuse patient.[facility] CenterIn the event this information is protected by the Federal Confidentiality of Alcohol and Drug Abuse Patient Records regulations: The Federal rules restrict any use of the information to criminally investigate or prosecute any alcohol or drug abuse patient.[facility] CenterIn the event this information is protected by the Federal Confidentiality of Alcohol and Drug Abuse Patient Records regulations: The Federal rules restrict any use of the information to criminally investigate or prosecute any alcohol or drug abuse patient.[facility] CenterIn the event this information is protected by the Federal Confidentiality of Alcohol and Drug Abuse Patient Records regulations: The Federal rules restrict any use of the information to criminally investigate or prosecute any alcohol or drug abuse patient.[facility] CenterIn the event this information is protected by the Federal Confidentiality of Alcohol and Drug Abuse Patient Records regulations: The Federal rules restrict any use of the information to criminally investigate or prosecute any alcohol or drug abuse patient.[facility] CenterIn the event this information is protected by the Federal Confidentiality of Alcohol and Drug Abuse Patient Records regulations: The Federal rules restrict any use of the information to criminally investigate or prosecute any alcohol or drug abuse patient.[facility] CenterIn the event this information is protected by the Federal Confidentiality of Alcohol and Drug Abuse Patient Records regulations: The Federal rules restrict any use of the information to criminally investigate or prosecute any alcohol or drug abuse patient.[facility] CenterIn the event this information is protected by the Federal Confidentiality of Alcohol and Drug Abuse Patient Records regulations: The Federal rules restrict any use of the information to criminally investigate or prosecute any alcohol or drug abuse patient.[facility] CenterIn the event this information is protected by the Federal Confidentiality of Alcohol and Drug Abuse Patient Records regulations: The Federal rules restrict any use of the information to criminally investigate or prosecute any alcohol or drug abuse patient.[facility] CenterIn the event this information is protected by the Federal Confidentiality of Alcohol and Drug Abuse Patient Records regulations: The Federal rules restrict any use of the information to criminally investigate or prosecute any alcohol or drug abuse patient.[facility] CenterIn the event this information is protected by the Federal Confidentiality of Alcohol and Drug Abuse Patient Records regulations: The Federal rules restrict any use of the information to criminally investigate or prosecute any alcohol or drug abuse patient.[facility] CenterIn the event this information is protected by the Federal Confidentiality of Alcohol and Drug Abuse Patient Records regulations: The Federal rules restrict any use of the information to criminally investigate or prosecute any alcohol or drug abuse patient.[facility] CenterIn the event this information is protected by the Federal Confidentiality of Alcohol and Drug Abuse Patient Records regulations: The Federal rules restrict any use of the information to criminally investigate or prosecute any alcohol or drug abuse patient.[facility] CenterIn the event this information is protected by the Federal Confidentiality of Alcohol and Drug Abuse Patient Records regulations: The Federal rules restrict any use of the information to criminally investigate or prosecute any alcohol or drug abuse patient.[facility] CenterIn the event this information is protected by the Federal Confidentiality of Alcohol and Drug Abuse Patient Records regulations: The Federal rules restrict any use of the information to criminally investigate or prosecute any alcohol or drug abuse patient.[facility] CenterIn the event this information is protected by the Federal Confidentiality of Alcohol and Drug Abuse Patient Records regulations: The Federal rules restrict any use of the information to criminally investigate or prosecute any alcohol or drug abuse patient.[facility]In the event this information is protected by the Federal Confidentiality of Alcohol and Drug Abuse Patient Records regulations: The Federal rules restrict any use of the information to criminally investigate or prosecute any alcohol or drug abuse patient.[facility] CenterIn the event this information is protected by the Federal Confidentiality of Alcohol and Drug Abuse Patient Records regulations: The Federal rules restrict any use of the information to criminally investigate or prosecute any alcohol or drug abuse patient.[facility] CenterIn the event this information is protected by the Federal Confidentiality of Alcohol and Drug Abuse Patient Records regulations: The Federal rules restrict any use of the information to criminally investigate or prosecute any alcohol or drug abuse patient.[facility] CenterIn the event this information is protected by the Federal Confidentiality of Alcohol and Drug Abuse Patient Records regulations: The Federal rules restrict any use of the information to criminally investigate or prosecute any alcohol or drug abuse patient.[facility] CenterIn the event this information is protected by the Federal Confidentiality of Alcohol and Drug Abuse Patient Records regulations: The Federal rules restrict any use of the information to criminally investigate or prosecute any alcohol or drug abuse patient.[facility] CenterIn the event this information is protected by the Federal Confidentiality of Alcohol and Drug Abuse Patient Records regulations: The Federal rules restrict any use of the information to criminally investigate or prosecute any alcohol or drug abuse patient.[facility] CenterIn the event this information is protected by the Federal Confidentiality of Alcohol and Drug Abuse Patient Records regulations: The Federal rules restrict any use of the information to criminally investigate or prosecute any alcohol or drug abuse patient.[facility] CenterIn the event this information is protected by the Federal Confidentiality of Alcohol and Drug Abuse Patient Records regulations: The Federal rules restrict any use of the information to criminally investigate or prosecute any alcohol or drug abuse patient.[facility] CenterIn the event this information is protected by the Federal Confidentiality of Alcohol and Drug Abuse Patient Records regulations: The Federal rules restrict any use of the information to criminally investigate or prosecute any alcohol or drug abuse patient.[facility] CenterIn the event this information is protected by the Federal Confidentiality of Alcohol and Drug Abuse Patient Records regulations: The Federal rules restrict any use of the information to criminally investigate or prosecute any alcohol or drug abuse patient.[facility] CenterIn the event this information is protected by the Federal Confidentiality of Alcohol and Drug Abuse Patient Records regulations: The Federal rules restrict any use of the information to criminally investigate or prosecute any alcohol or drug abuse patient.[facility] CenterIn the event this information is protected by the Federal Confidentiality of Alcohol and Drug Abuse Patient Records regulations: The Federal rules restrict any use of the information to criminally investigate or prosecute any alcohol or drug abuse patient.[facility] CenterIn the event this information is protected by the Federal Confidentiality of Alcohol and Drug Abuse Patient Records regulations: The Federal rules restrict any use of the information to criminally investigate or prosecute any alcohol or drug abuse patient.[facility] CenterIn the event this information is protected by the Federal Confidentiality of Alcohol and Drug Abuse Patient Records regulations: The Federal rules restrict any use of the information to criminally investigate or prosecute any alcohol or drug abuse patient.[facility] CenterIn the event this information is protected by the Federal Confidentiality of Alcohol and Drug Abuse Patient Records regulations: The Federal rules restrict any use of the information to criminally investigate or prosecute any alcohol or drug abuse patient.[facility] CenterIn the event this information is protected by the Federal Confidentiality of Alcohol and Drug Abuse Patient Records regulations: The Federal rules restrict any use of the information to criminally investigate or prosecute any alcohol or drug abuse patient.[facility] Care Teams (unrecognized sec tion and content) Team Status: Active Member Role Status Mark Salomon MD Primary Care Provider Active Team [...] November 04, 2023 End: November 04, 2023 Costume Shop Manager Relationship Specialty Start Date End Date Gay Enciso, MAURILIO.STRATEGIC SOURCING CONSULTANT [address] [place] [address] PCP - General Family Practice 10/24/21 Costume Shop Manager Relationship Specialty Start Date End Date Gay Enciso APRN.STRATEGIC SOURCING CONSULTANT [address] [place] [address] PCP - General Family Medicine 10/24/21 Madelaine Ferris MD [address] [place] [address] Referring Family Medicine 02/12/22 Costume Shop Manager Relationship Specialty Start Date End Date Madelaine Ferris MD [address] [place] [address] PCP - General Family Medicine 02/27/22 Madelaine Ferris MD [address] [place] [facility] [place] [address] Referring Family Medicine 02/12/22 Costume Shop Manager Relationship Specialty Start Date End Date Madelaine Ferris MD [address] [place] [facility] [place] [address] PCP - General Family Medicine 02/27/22 Madelaine Ferris MD [address] [place] [facility] [place] [address] Referring Family Medicine 02/12/22 Costume Shop Manager Relationship Specialty Start Date End Date Madelaine Ferirs MD [address] [place] [facility] [place] [address] PCP - General Family Medicine 02/27/22 Madelaine Ferris MD [address] [place] [facility] [place] [address] Referring Family Medicine 02/12/22 Costume Shop Manager Relationship Specialty Start Date End Date Madelaine Ferris MD [address] [place] [facility] [place] [address] PCP - General Family Medicine 02/27/22 Madelaine Ferris MD [address] [place] [facility] [place] [address] Referring Family Medicine 02/12/22 Costume Shop Manager Relationship Specialty Start Date End Date Madelaine Ferris MD [address] [place] [facility] [place] [address] PCP - General Family Medicine 02/27/22 Madelaine Ferris MD [address] [place] [facility] [place] [address] Referring Family Medicine 02/12/22 Costume Shop Manager Relationship Specialty Start Date End Date Madelaine Ferris MD [address] [place] [facility] [place] [address] PCP - General Family Medicine 02/27/22 Madelaine Ferris MD [address] [place] [facility] [place] [address] Referring Family Medicine 02/12/22 Costume Shop Manager Relationship Specialty Start Date End Date Madelaine Ferris MD [address] [place] [facility] [place] [place] [address] PCP - General Family Medicine 02/27/22 Madelaine Ferris MD [address] [place] [facility] [place] [address] Referring Family Medicine 02/12/22 Costume Shop Manager Relationship Specialty Start Date End Date Madelaine Ferris MD [address] [place] [facility] [place] [address] PCP - General Family Medicine 02/27/22 Madelaine Ferris MD [address] [place] [facility] [place] [address] Referring Family Medicine 02/12/22 Costume Shop Manager Relationship Specialty Start Date End Date Madelaine Ferris MD [address] [place] [facility] [place] [address] PCP - General Family Medicine 02/27/22 Madelaine Ferris MD [address] [place] [facility] [place] [address] Referring Family Medicine 02/12/22 Costume Shop Manager Relationship Specialty Start Date End Date Madelaine Ferris MD [address] [place] [facility] [place] [address] PCP - General Family Medicine 02/27/22 Madelaine Ferris MD [address] [place] [facility] [place] [address] Referring Family Medicine 02/12/22 Costume Shop Manager Relationship Specialty Start Date End Date Madelaine Ferris MD [address] [place] [facility] [place] [address] PCP - General Family Medicine 02/27/22 Madelaine Ferris MD [address] [place] [facility] [place] [address] Referring Family Medicine 02/12/22 Costume Shop Manager Relationship Specialty Start Date End Date Madelaine Ferris MD [address] [place] [facility] [place] [address] PCP - General Family Medicine 02/27/22 Madelaine Ferris MD [address] [place] [facility] [place] [address] Referring Family Medicine 02/12/22 Costume Shop Manager Relationship Specialty Start Date End Date Madelaine Ferris MD [address] [place] [facility] [place] [place] [address] PCP - General Family Medicine 02/27/22 Madelaine Ferris MD [address] [place] [facility] [place] [address] Referring Family Medicine 02/12/22 Costume Shop Manager Relationship Specialty Start Date End Date Madelaine Ferris MD [address] [place] [facility] [place] [address] PCP - General Family Medicine 02/27/22 Madelaine Ferris MD [address] [place] [facility] [place] [address] Referring Family Medicine 02/12/22 Costume Shop Manager Relationship Specialty Start Date End Date Madelaine Ferris MD [address] [place] [facility] [place] [address] PCP - General Family Medicine 02/27/22 Madelaine Ferris MD [address] [place] [facility] [place] [address] Referring Family Medicine 02/12/22 Costume Shop Manager Relationship Specialty Start Date End Date Madelaine Ferris MD [address] [place] [facility] [place] [address] PCP - General Family Medicine 02/27/22 Madelaine Ferris MD [address] [place] [facility] [place] [address] Referring Family Medicine 02/12/22 Costume Shop Manager Relationship Specialty Start Date End Date Madelaine Ferris MD [address] [place] [facility] [place] [place] [address] PCP - General Family Medicine 02/27/22 Madelaine Ferris MD [address] [place] [facility] [place] [place] [address] Referring Family Medicine 02/12/22 Costume Shop Manager Relationship Specialty Start Date End Date Madelaine Ferris MD [address] [place] [facility] [place] [address] PCP - General Family Medicine 02/27/22 Madelaine Ferris MD [address] [place] [facility] [place] [address] Referring Family Medicine 02/12/22 Costume Shop Manager Relationship Specialty Start Date End Date Madelaine Ferris MD [address] [place] [facility] [place] [address] PCP - General Family Medicine 02/27/22 Madelaine Ferris MD [address] [place] [facility] [place] [place] [address] Referring Family Medicine 02/12/22 Costume Shop Manager Relationship Specialty Start Date End Date Madelaine Ferris MD [address] [place] [facility] [place] [address] PCP - General Family Medicine 02/27/22 Madelaine Ferris MD [address] [place] [id number] Referring Family Medicine 02/12/22 Costume Shop Manager Relationship Specialty Start Date End Date Madelaine Ferris MD [address] [place] [id number] PCP - General Family Medicine 02/27/22 Madelaine Ferris MD [address] [place] [id number] Referring Family Medicine 02/12/22 Costume Shop Manager Relationship Specialty Start Date End Date Madelaine Ferris MD PCP - General Family Medicine 02/27/22 Madelaine Ferris MD Referring Family Medicine 02/12/22 Costume Shop Manager Relationship Specialty Start Date End Date Madelaine Ferris MD PCP - General Family Medicine 02/27/22 Madelaine Ferris MD Referring Family Medicine 02/12/22 Costume Shop Manager Relationship Specialty Start Date End Date Madelaine Ferris MD PCP - General Family Medicine 02/27/22 Madelaine Ferris MD Referring Family Medicine 02/12/22 Costume Shop Manager Relationship Specialty Start Date End Date Madelaine Ferris MD PCP - General Family Medicine 02/27/22 Madelaine Ferris MD Referring Family Medicine 02/12/22 Costume Shop Manager Relationship Specialty Start Date End Date Madelaine Ferris MD PCP - General Family Medicine 02/27/22 Madelaine Ferris MD Referring Family Medicine 02/12/22 Costume Shop Manager Relationship Specialty Start Date End Date Madelaine Ferris MD PCP - General Family Medicine 02/27/22 Madelaine Ferris MD Referring Family Medicine 02/12/22 Costume Shop Manager Relationship Specialty Start Date End Date Madelaine Ferris MD PCP - General Family Medicine 02/27/22 Madelaine Ferris MD Referring Family Medicine 02/12/22 Costume Shop Manager Relationship Specialty Start Date End Date Madelaine Ferris MD PCP - General Family Medicine 02/27/22 Madelaine Ferris MD Referring Family Medicine 02/12/22 Costume Shop Manager Relationship Specialty Start Date End Date Madelaine Ferris MD PCP - General Family Medicine 02/27/22 Madelaine Ferris MD Referring Family Medicine 02/12/22 Costume Shop Manager Relationship Specialty Start Date End Date Madelaine Ferris MD PCP - General Family Medicine 02/27/22 Madelaine Ferris MD Referring Family Medicine 02/12/22 Costume Shop Manager Relationship Specialty Start Date End Date Madelaine Ferris MD PCP - General Family Medicine 02/27/22 Madelaine Ferris MD Referring Family Medicine 02/12/22 Costume Shop Manager Relationship Specialty Start Date End Date Madelaine Ferris MD PCP - General Family Medicine 02/27/22 Madelaine Ferris MD Referring Family Medicine 02/12/22 Costume Shop Manager Relationship Specialty Start Date End Date Madelaine Ferris MD PCP - General Family Medicine 02/27/22 Madelaine Ferris MD Referring Family Medicine 02/12/22 Costume Shop Manager Relationship Specialty Start Date End Date Madelaine Ferris MD PCP - General Family Medicine 02/27/22 Madelaine Ferris MD Referring Family Medicine 02/12/22 Costume Shop Manager Relationship Specialty Start Date End Date Madelaine Ferris MD PCP - General Family Medicine 02/27/22 Madelaine Ferris MD Referring Family Medicine 02/12/22 Costume Shop Manager Relationship Specialty Start Date End Date Madelaine Ferris MD PCP - General Family Medicine 02/27/22 Madelaine Ferris MD Referring Family Medicine 02/12/22 Costume Shop Manager Relationship Specialty Start Date End Date Madelaine Ferris MD PCP - General Family Medicine 02/27/22 Madelaine Ferris MD Referring Family Medicine 02/12/22 Costume Shop Manager Relationship Specialty Start Date End Date Madelaine Ferris MD PCP - General Family Medicine 02/27/22 Madelaine Ferris MD Referring Family Medicine 02/12/22 Costume Shop Manager Relationship Specialty Start Date End Date Madelaine Ferris MD PCP - General Family Medicine 02/27/22 Madelaine Ferris MD Referring Family Medicine 02/12/22 Costume Shop Manager Relationship Specialty Start Date End Date Madelaine Ferris MD PCP - General Family Medicine 02/27/22 Madelaine Ferris MD Referring Family Medicine 02/12/22 Costume Shop Manager Relationship Specialty Start Date End Date Madelaine Ferris MD PCP - General Family Medicine 02/27/22 Madelaine Ferris MD Referring Family Medicine 02/12/22 Costume Shop Manager Relationship Specialty Start Date End Date Madelaine Ferris MD PCP - General Family Medicine 02/27/22 Madelaine Ferris MD Referring Family Medicine 02/12/22 Costume Shop Manager Relationship Specialty Start Date End Date Madelaine Ferris MD PCP - General Family Medicine 02/27/22 Madelaine Ferris MD Referring Family Medicine 02/12/22 Costume Shop Manager Relationship Specialty Start Date End Date Madelaine Ferris MD PCP - General Family Medicine 02/27/22 Madelaine Ferris MD Referring Family Medicine 02/12/22 Costume Shop Manager Relationship Specialty Start Date End Date Madelaine Ferris MD PCP - General Family Medicine 02/27/22 Madelaine Ferris MD Referring Family Medicine 02/12/22 Costume Shop Manager Relationship Specialty Start Date End Date Madelaine Ferris MD PCP - General Family Medicine 02/27/22 Madelaine Ferris MD Referring Family Medicine 02/12/22 Costume Shop Manager Relationship Specialty Start Date End Date Charles Mitchell DO [address] [place] [address] PCP - General 10/22/18 Michelle Britton, PREPARATION SUPERVISOR FREEZING-STRATEGIC SOURCING CONSULTANT [address] [address] Nurse Practitioner Cardiology 06/08/23 Costume Shop Manager Relationship Specialty Start Date End Date Gay Enciso PREPARATION SUPERVISOR [employer]ZING-STRATEGIC SOURCING CONSULTANT [address] [place] [address] PCP - General 07/13/23 Michelle Britton, PREPARATION SUPERVISOR [employer]ING-STRATEGIC SOURCING CONSULTANT [address] [address] Nurse Practitioner Cardiology 06/08/23 Aurora Patel MD [address] [address] Consulting Physician Cardiology 06/23/23 Costume Shop Manager Relationship Specialty Start Date End Date Madelaine Ferris MD PCP - General Family Medicine 02/27/22 Madelaine Ferris MD Referring Family Medicine 02/12/22 Costume Shop Manager Relationship Specialty Start Date End Date Madelaine Ferris MD PCP - General Family Medicine 02/27/22 Madelaine Ferris MD Referring Family Medicine 02/12/22 Team Status: Active Member Role Status Dates Lui Salomon MD Primary Care Provider Active Start: July 28, 2023 Virgil Green MD Attending Provider Active S tart: July 28, 2023 [employer]ume Shop Manager Relationship Specialty Start Date End Date Madelaine Ferris MD PCP - General Family Medicine 02/27/22 Madelaine Ferris MD Referring Family Medicine 02/12/22 Team Status: Inactive Member Role Status Dates Lui Salomon MD Primary Care Provider Active Start: December 16, 2023 End: December 16, 2023 Mirela Kelsey MD Attending Provider Active Sta rt: December 16, 2023 End: December 16, 2023 Costume Shop Manager Relationship Specialty Start Date End Date Madelaine Ferris MD PCP - General Family Medicine 02/27/22 Madelaine Ferris MD Referring Family Medicine 02/12/22 Costume Shop Manager Relationship Specialty Start Date End Date Madelaine Ferris MD PCP - General Family Medicine 02/27/22 Madelaine Ferris MD Referring Family Medicine 02/12/22 Costume Shop Manager Relationship Specialty Start Date End Date Madelaine Ferris MD PCP - General Family Medicine 02/27/22 Madelaine Ferris MD Referring Family Medicine 02/12/22 Costume Shop Manager Relationship Specialty Start Date End Date Madelaine Ferris MD PCP - General Family Medicine 02/27/22 Madelaine Ferris MD Referring Family Medicine 02/12/22 Team Status: Inactive Member Role Status Dates Lui Salomon MD Primary Care Provider Active Start: January 28, 2024 End: January 28, 2024 Adolfo Kang MD Attending Provider Active Sta rt: January 28, 2024 End: January 28, 2024 Juan Luis Richardson MD Referring Provider Active Start: January 28, 2024 End: January 28, 2024 Team Status: Active Member Role Status Dates WALESKA Galloway Primary Care Provider Active Team Status: Inactive Member Role Status Dates Adolfo Kang MD Attending Provider Active Sta rt: February 16, 2024 End: February 16, 2024 WALESKA Galloway Primary Care Provider Active Start: February 16, 2024 End: February 16, 2024 Inactive Administered Medications - up to 3 [...] BE BASED ON THE PRIMARY CLINICAL RECORDS. [facility] [employer] [facility] provides no warranty or guarantee of the accuracy or completeness of information in this document.
== END 2024-02-21 07:33 | disposition home or self-care (01) ==
LOC: CARD 07:32
PROVIDERS: PCP Nurse Practitioner Family; Visit Provider Nurse Practitioner Family
DX: I10 Essential (primary) hypertension (principal)
CPT/HCPCS: 93306

== ENCOUNTER 2024-02-28 08:30 | Outpatient (OUT) | payer OTHER, SELFPAY ==
[2024-02-28 10:09] LABS: Basophils Percent Auto 0.2 % (0.2-2.0); Eosinophils Percent Auto 0.3 % (0.9-7.0); Hematocrit 41.8 % (36.0-48.0); Hemoglobin 13.5 g/dL (12.0-16.0); Immature Granulocytes Abs Auto 0.11 10^3/uL (0.00-0.03); Immature Granulocytes Pct Auto 0.8 % (0.0-0.5); Lymphocytes Absolute Auto 1.8 10^3/uL (1.2-3.8); Lymphocytes Percent Auto 13.5 % (20.5-60.0); Mean Corpuscular HGB Conc 32.3 g/dL (29.9-35.2); Mean Corpuscular Hemoglobin 30.1 pg (26.7-34.0); Mean Corpuscular Volume 93.3 fL (81.0-99.0); Mean Platelet Volume 9.9 fL (9.5-13.5); Monocytes Absolute Auto 0.7 10^3/uL (0.3-0.8); Neutrophils Percent Auto 80.2 % (43.0-75.0); Platelet Count 318 10^3/uL (150-450); Red Blood Count 4.48 10^6/uL (4.20-5.40); Red Cell Distribution Width 15.3 % (11.0-15.0); White Blood Count 13.7 10^3/uL (4.0-11.0)
== END 2024-02-28 08:31 | disposition home or self-care (01) ==
LOC: LAB 08:32
PROVIDERS: PCP Nurse Practitioner Family; Visit Provider Nurse Practitioner Family
DX: D72.829 Elevated white blood cell count, unspecified (principal)
CPT/HCPCS: 36415; 85025

== ENCOUNTER 2024-03-06 15:12 | Outpatient (REF) | payer OTHER, SELFPAY | END 2024-03-06 15:13 | disposition home or self-care (01) | LOC: LAB 15:12 | PROVIDERS: PCP Nurse Practitioner Family; Visit Provider Nurse Practitioner Family | DX: R19.7 Diarrhea, unspecified (principal) | CPT/HCPCS: 87493 ==

== ENCOUNTER 2024-04-06 14:37 | Outpatient (OUT) | payer OTHER, SELFPAY ==
--- NOTE | 2024-04-06 15:06 | US_ITS ---
[address] [address] Patient Name: JONES HALEY MRN: [id number] date: 1980 Sex: F Assigned Patient Location: LAB Current Patient Location: Accession/Order Number: [id number] Exam Date: 04/06/2024 15:45 Report Date: 04/07/2024 04:48 At the request of: MICKY PARNELL Procedure: US pelvis w/ transvaginal EXAMINATION: US pelvis w/ transvaginal HISTORY: Pelvic Pain , menorrhagia COMPARISON: Ultrasound pelvis 11/18/2023 TECHNIQUE: Transabdominal and/or transvaginal sonographic examination was performed as indicated by examination type. FINDINGS: UTERUS: Normal size and appearance. Uterus size: 8.4 x 4.2 x 5.2 cm ENDOMETRIUM: Normal homogeneous appearance. Endometrial thickness: 7 mm RIGHT OVARY: Contains a 2.2 cm benign-appearing cyst. Duplex Doppler demonstrates normal waveform and flow; resistive index 0.6. Ovary size: 3.3 x 2.6 x 2.7 cm LEFT OVARY: Not seen. CUL-DE-SAC: Unremarkable. No significant free fluid. BLADDER: Unremarkable. OTHER: None. US/US pelvis w/ transvaginal IMPRESSION: 1. No suspicious findings to account for patient's menorrhagia. 2. Right ovary contains a 2.2 cm benign-appearing cyst. Electronically authenticated by: SAYDA ANN Date: 04/07/2024 04:48
[2024-04-06 15:13] LABS: Basophils Absolute Auto 0.1 10^3/uL (0.0-0.1); Basophils Percent Auto 0.4 % (0.2-2.0); Eosinophils Absolute Auto 0.1 10^3/uL (0.0-0.7); Eosinophils Percent Auto 0.4 % (0.9-7.0); Hematocrit 39.7 % (36.0-48.0); Immature Granulocytes Pct Auto 0.9 % (0.0-0.5); Lymphocytes Absolute Auto 2.1 10^3/uL (1.2-3.8); Lymphocytes Percent Auto 18.4 % (20.5-60.0); Mean Corpuscular HGB Conc 32.7 g/dL (29.9-35.2); Mean Corpuscular Hemoglobin 30.9 pg (26.7-34.0); Mean Corpuscular Volume 94.3 fL (81.0-99.0); Mean Platelet Volume 10.1 fL (9.5-13.5); Monocytes Absolute Auto 0.8 10^3/uL (0.3-0.8); Monocytes Percent Auto 6.7 % (1.7-12.0); Neutrophils Absolute Auto 8.3 10^3/uL (1.4-6.5); Neutrophils Percent Auto 73.2 % (43.0-75.0); Platelet Count 326 10^3/uL (150-450); Red Blood Count 4.21 10^6/uL (4.20-5.40); Red Cell Distribution Width 15.1 % (11.0-15.0); White Blood Count 11.4 10^3/uL (4.0-11.0)
[2024-04-06 15:24] LABS: INR <0.93; Partial Thromboplastin Time 25.6 sec (22.3-36.2); Prothrombin Time 9.6 sec (9.0-11.6)
[2024-04-06 15:35] LABS: Thyroid Stimulating Hormone 0.333 uIU/mL (0.358-3.740)
[2024-04-06 15:37] LABS: HCG Quantitative <1 mIU/mL
[2024-04-06 15:48] LABS: Estimated Average Glucose 134 mg/dL; Glycohemoglobin A1C 6.3 % (4.5-6.2)
[2024-04-06 15:53] LABS: Free T4 1.01 ng/dL (0.76-1.46)
== END 2024-04-06 14:38 | disposition home or self-care (01) ==
LOC: LAB 14:37
PROVIDERS: PCP Nurse Practitioner Family; Visit Provider Physician Assistant
DX: N92.0 Excessive and frequent menstruation with regular cycle (principal); N83.201 Unspecified ovarian cyst, right side
CPT/HCPCS: 36415; 76830; 76856; 83036; 84439; 84443; 84702; 85025; 85610; 85730

== ENCOUNTER 2024-04-06 14:38 | Outpatient (OUT) | payer OTHER, SELFPAY ==
[2024-04-07 16:11] LABS: Deamidated Gliadin Abs, IgA 3 units (0-19); Deamidated Gliadin Abs, IgG 1 units (0-19); Endomysial Antibody IgA Negative (Negative); Immunoglobulin A, Qn, Serum 169 mg/dL (87-352); t-Transglutaminase (tTG) IgA <2 U/mL (0-3); t-Transglutaminase (tTG) IgG <2 U/mL (0-5)
== END 2024-04-06 14:39 | disposition home or self-care (01) ==
LOC: LAB 14:38
PROVIDERS: PCP Nurse Practitioner Family
DX: R10.9 Unspecified abdominal pain (principal)
CPT/HCPCS: 36415; 82784; 86231; 86258; 86364

== ENCOUNTER 2024-04-06 14:51 | Outpatient (OUT) | payer OTHER, SELFPAY ==
--- NOTE | 2024-04-06 14:57 | MM_ITS ---
Patient Name: JONES HALEY MR#: [id number] : 1980 Exam Date: 04/06/2024 Ordering Doctor: DR Luan Valdivia . RADIOLOGY REPORT PROCEDURE: MM TOMOSYNTHESIS DIAGNOSTIC BI, 04/06/2024, 15:20 US BREAST BI LIMITED, 04/06/2024, 15:37 COMPARISON: MM TOMOSYNTHESIS SCREENING BI, 09/23/2023. MG MAMM SCREEN 3D MARK CAD, 09/01/2022. MG MAMM SCREEN 3D MARK CAD, 12/05/2020. INDICATIONS: Nipple Discharge Calculator Name NCI Breast Cancer Risk Assessment Tool 5 Year Breast Cancer Risk 1.00% Lifetime Breast Cancer Risk 13.20% Personal Breast Cancer No Personal Ovarian Cancer No Treatments None Family Cancers Grandmother-paternal with breast cancer at age ~67; Aunt-paternal with breast cancer at age ~50; Father with stomach cancer at age 56. LOCATION: [facility] BREAST COMPOSITION: There are scattered areas of fibroglandular density. FINDINGS: DIAGNOSTIC CATEGORY 2--BENIGN FINDING: RIGHT BREAST: No significant suspicious finding. Scattered benign-appearing calcifications are present. Scattered benign-appearing lymph nodes are present. No significant change has occurred. Ultrasound evaluation demonstrates minimally prominent subareolar ducts without appreciable mass or intraluminal debris. LEFT BREAST: No significant suspicious finding. No significant change has occurred. Ultrasound evaluation demonstrates minimally prominent subareolar ducts without appreciable mass or intraluminal debris. RECOMMENDATIONS: ROUTINE MAMMOGRAM AND CLINICAL EVALUATION IN 12 MONTHS. PLEASE NOTE: A NORMAL MAMMOGRAM DOES NOT EXCLUDE THE POSSIBILITY OF BREAST CANCER. A CLINICALLY SUSPICIOUS PALPABLE LUMP SHOULD BE BIOPSIED. Dictated by: Vito Yusuf M.D. on 04/07/2024 at 08:29 Approved by: Vito Yusuf M.D. on 04/07/2024 at 08:40
== END 2024-04-06 14:52 | disposition home or self-care (01) ==
LOC: US 14:51
PROVIDERS: PCP Nurse Practitioner Family; Visit Provider Obstetrics & Gynecology
DX: N64.52 Nipple discharge (principal); N92.0 Excessive and frequent menstruation with regular cycle; N83.201 Unspecified ovarian cyst, right side; R10.9 Unspecified abdominal pain; Z80.3 Family history of malignant neoplasm of breast; Z80.0 Family history of malignant neoplasm of digestive organs
CPT/HCPCS: 36415; 76642; 76830; 76856; 77066; 82784; 83036; 84439; 84443; 84702; 85025; 85610; 85730; 86231; 86258; 86364; G0279

== ENCOUNTER 2024-04-10 09:20 | Outpatient (REF) | payer OTHER, SELFPAY ==
[2024-04-11 15:14] LABS: C. Difficile PCR NEGATIVE
== END 2024-04-10 09:21 | disposition home or self-care (01) ==
LOC: LAB 09:20
PROVIDERS: PCP Nurse Practitioner Family; Visit Provider Nurse Practitioner Family
DX: R19.7 Diarrhea, unspecified (principal)
CPT/HCPCS: 87493

== ENCOUNTER 2024-04-15 16:36 | Emergency (ER) | payer OTHER, SELFPAY ==
[2024-04-15 16:41] VITALS: BP 154/101; PULSE 87; TEMP 36.9; O2SAT 99; BMI 43.1
--- OUTSIDE RECORDS SUMMARY | 2024-04-15 16:45 | XMS_ITS | CCD ---
Author Organization [facility] Care Team Providers Care Brush Cleaner Name Role Phone VICTOR MANUEL GUZMAN Referring Unavailable Unavailable Primary Care Provider UnavailJAREN Stuart Referring Unavailable Fernie LEGAL BILLING COORDINATOR.TRUE, Gay Primary Care Provider Mirela Kelsey Unavailable Fernie LEGAL BILLING COORDINATOR.GEAR KEEPER, Gay Primary Care Provider Madelaine Ferris MD [...] DR BURKETT Primary Care Unavailable PARMJIT ., OLY Attending Unavailable PARMJIT ., OLY Admitting Unavailable NEEL, DR AURORA Pacheco Consulting Unavailable HOY ., DR BURKETT Primary Care Unavailable PARMJIT ., OLY Consulting Unavailable HOY ., DR BURKETT Primary Care Unavailable PARMJIT ., OLY Consulting Unavailable PARMJIT ., OLY Attending Unavailable PARMJIT ., OLY Admitting Unavailable HOY ., DR BURKETT Primary Care Unavailable HOY ., DR BURKETT Consulting Unavailable HOY ., DR BURKETT Attending Unavailable HOY ., DR BUKRETT Admitting Unavailable MARISSA, DR SAYDA Nelson Consulting Unavailable Charles Mitchell DO Primary Care Provider Mitali 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, Michelle London Unavailable Unavailable Primary Care Provider UnavailAurora Carney MD Unavailable Fernie 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, Gay S Primary Care Provider Madelaine Ferris MD Primary Care Provider [phone] ALHAJI HEAD Attending Unavailable MADELAINE FERRIS Primary Care Unavailable MD Adolfo Kang Attending Provider WALESKA Enciso Natalie Primary Care Provider [phone] Adolfo Kang Attending Unavailable Adolfo Kang Admitting Unavailable Gay Enciso Natalie Primary Care Unavailable MICHELLE BRITTON Attending Unavailable CHARLES MITCHELL Primary Care Unavailable MICHELLE BRITTON Referring Unavailable LOIS HOLM Attending Unavailable FERNIE GAY S Primary Care Unavailable LOIS HOLM Attending Unavailable FERNIE GAY S Primary Care Unavailable Charles Mitchell MD Primary Care Provider CALOS MENDOZA Attending Unavailable Unavailable Primary Care Provider UnavailZITA Edmondson Attending Unavailab JUAN LUIS Meíja Attending Unavailable ZITA ROGERS Attending Unavailab BERNABE Cedillo Attending Unavailable GORDO BARFIELD Attending Unavailable GAY ENCISO Referring Unavailable JUAN LUIS RICHARDSON Attending Unavailable ZITA ROGERS Referring Unavailab susan ROGERS, ZITA M Attending Unavailab LUAN Yates Attending Unavailable DIGNA PRICE Attending Unavailable ZITA ROGERS Attending Unavailab le GRAZIANI, ZITA M Referring Unavailab le GRAZIANI, ZITA M Attending Unavailab susan GRAZIANI, ZITA M Referring Unavailab LUAN Yaets Attending Unavailable OLY PLASCENCIA Attending Unavailable JUDAH MIKE Attending Unavailable GORDO BARFIELD Attending Unavailable GAY ENCISO Referring Unavailable NEDA NARAYANAN Attending Unavailable HOY, MADELAINE [...] HOY, MADELAINE M Primary Care Unavailable HOY, MADEALINE M Primary Care Unavailable CHRISTIE PHAN Attending Unavailable HOY, MADELAINE M Primary Care Unavailable HOY, MADELAINE M Primary Care Unavailable Allergies Allergy Classification Reported Allergen(s) Allergy Type Date of Onset Reaction(s) Facility Dihydrofolate Reductase Inhibitors (antibiotic) (3 sources) Trimethoprim Drug Allergy Other: See Comments [facility] Doxycycline (3 sources) Doxycycline Drug Allergy Other: See Comments [facility] Latex (3 sources) Latex Substance Allergy Rash [facility] Lincosamides (antibiotic) (3 sources) Clindamycin Drug Allergy Unknown [facility] Opioid Agonists (3 sources) Codeine Drug Allergy Other: See Comments [facility] Sulfamethoxazole / Trimethoprim (4 sources) Sulfamethoxazole / Trimethoprim Drug Allergy Swelling [facility] Sulfonamides (antibiotic) (3 sources) Sulfamethoxazole Drug Allergy Other: See Comments [facility] Work Phone: (20 sources) Codeine; Translations: [CODEINE] Drug Allergy Other: See Comments [facility] (20 sources) Latex; Translations: [LATEX] Drug Allergy Rash [facility] (20 sources) Sulfamethoxazole; Translations: [SULFAMETHOXAZOLE] Drug Allergy GI Upset, Other: See Comments [facility] (20 sources) Clindamycin; Translations: [CLINDAMYCIN] Drug Allergy Unknown [facility] (4 sources) Sulfamethoxazole / Trimethoprim Drug Allergy lymph swelling [facility] Other (20 sources) Doxycycline; Translations: [DOXYCYCLINE] Drug Allergy Other: See Comments, Other, Unknown, Other (See Comments) [facility] (20 sources) Sulfamethoxazole / Trimethoprim; Translations: [SULFAMETHOXAZOLE-T RIMETHOPRIM] Drug Allergy Swelling, Other, GI Disturbance, Other (See Comments) [facility] (20 sources) Trimethoprim; Translations: [TRIMETHOPRIM] Drug Allergy Other: See Comments [facility] (1 source) Latex Drug allergy (disorder) [facility] Repository (1 source) Sulfamethoxazole / Trimethoprim Drug Allergy [facility] Repository (13 sources) Sulfamethoxazole Allergy to substance [address] [facility] (12 sources) Latex Propensity to adverse reactions [address] [facility] (1 source) Clindamycin Drug Allergy 024 [facility] Repository (1 source) Sulfamethoxazole Drug Allergy 024 [facility] Repository (1 source) Trimethoprim Drug Allergy [facility] Repository (1 source) Omeprazole; Translations: [OMEPRAZOLE] Drug Allergy [facility] Repository (1 source) pantoprazole; Translations: [PANTOPRAZOLE] Drug Allergy [facility] Repository Medications Current Medications Medication Drug Class(es) Dates Sig (Normalized) Sig (Original) acetaminophen 500 mg oral tablet (20 sources) acetaminophen (T YLENOL) 500 mg tablet Take 1,000 mg by mouth. Active acetaminophen (T ylenol) 325 MG tablet every 4 (four) hours. Active take 1 tablet by kristal th every six hours as needed acetaminophen (TYLENOL) 325 mg tablet Ta ke 1 tablet (325 mg total) by mouth every 6 (six) hours as needed. Active acetaminophen (T YLENOL) 500 mg tablet Take 1,000 mg by mouth. 0 Active Comment on above: Take 1,000 mg by kristal th. ALPRAZolam 0.25 mg oral tablet (20 sources) Benzodiazepine Start: 06-24-19 24 take 1 tablet by mouth once daily as needed ALPRAZolam (Xanax) 0.25 MG tablet TAKE 1 TABLET BY MOUTH EVERY DAY NEEDED FOR 30 DAYS 06/24/2023 Active amoxicillin 875 mg oral tablet (2 [...] oral tablet (20 sources) Purine Antimetabolite Start: 10-20-19 take 50 mg by mouth twice daily Azathioprine Active 50 MG PO Twice daily October 20, 2023 12:00am Start: 05-24-2023 End: 11-11-2023 take 3 tablets by mouth once daily at mealtime azaTHIOprine (IMURAN) 50 mg tablet Indications: Other systemic lupus erythematosus with other organ involvement (HCC) , 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 HOLD IF ON ANTIBIOTICS OR ILL. 270 tablet 1 11/11/2023 Active Start: 05-24-2023 take 50 mg by mouth three times daily Azathioprine Active 50 MG PO Three times daily October 20, 2023 12:00am Start: 02-16-2023 take 3 tablets by mo uth three times daily azaTHIOprine (Imuran) 50 mg tablet Take 3 tablets (150 mg) by mouth 3 times a day. 0 02/16/2023 Active Start: 11-24-2022 End: 02-16-2023 take 3 tablets by mouth once daily at mealtime azaTHIOprine (IMURAN) 50 mg tablet Indications: Other systemic lupus erythematosus with other organ involvement (HCC) , 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 retirement 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 TAKE 3 TABLETS BY MOUTH DAILY WITH FOOD. HOLD IF ON ANTIBIOTICS OR ILL. 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 HOLD IF ON ANTIBIOTICS OR ILL. baclofen 5 mg oral tablet (12 sources) gamma-Aminobutyric Acid-ergic Agonist Start: End: take 1 tablet by mouth at bedtime baclofen (Lioresal) 5 MG tablet Indications: Lumbosacral radiculopathy at L5 , Degenerative disc disease, lumbar , Cervical radiculopathy at C5 TAKE 1 TABLET BY MOUTH IN THE MORNING, EVENING AND BEFORE BEDTIME 270 tablet 1 03/02/2024 Active 1 ml belimumab 200 mg/ml auto-injector (20 sources) B Lymphocyte Stimulator-specific Inhibitor Start: End: inject 200 mg by subcutaneous injection every week belimumab (BENLYSTA) 200 mg/mL auto-injector Indications: Other systemic lupus erythematosus with other organ involvement (HCC) Inject 200mg (1 pen) subcutaneously once weekly 12 mL 3 10/05/2023 Active Comment on above: Inject 200mg (1 pen) subcutaneously once weekly cephalexin 500 mg oral capsule (5 sources) Cephalosporin Antibacterial Start: cephalexin (Keflex) 500 MG capsule Indications: Postoperative stitch abscess Take 1 tablet twice a day x 7 days 14 capsule 0 01/07/2023 Active Keflex Active chlorhexidine gluconate 40 m g/ml medicated liquid soap (14 sources) Start: 11-01-2023 End: 04-16-2024 Chlorhexidine Gluconate (Hibiclens) 4 % solution Indications: Hidradenitis suppurativa Apply 1 Application topically Daily LATHER ONTO AFFECTED AREAS ON THE BODY AND RINSE FROM THE NECK DOWN 2 TIMES A WEEK AVOIDING THE FACE. 30 day supply 236 mL 11 03/17/2024 04/16/2024 Active Start: 07-15-2023 End: 03-16-2024 chlorhexidine (Hibiclens) 4 % external liquid Indications: Hidradenitis suppurativa Lather onto affected areas on the body and rinse from the neck down, 2 times a week avoiding the face, 30 day supply 118 mL 11 07/15/2023 03/16/2024 Discontinued clindamycin 0.01 mg/mg topical gel (15 sources) Lincosamide Antibacterial Start: 10-06-2023 clindamycin (Clindagel) 1 % gel Indications: Hidradenitis suppurativa APPLY TO AFFECTED AREA DAILY 75 mL 11 10/06/2023 Active Start: 06-23-2022 clindamycin ph osphate 1 % gel, once daily Apply topically once daily. 0 05/26/2023 Active clobetasol propionate 0.5 mg/ml medicated shampoo (20 sources) Corticosteroid Start: 10-20-2023 Clobetasol Act kaycee TOPICAL October 20, 2023 12:00am Start: 10-23-2022 Clobetasol Pro pionate 0.05 % shampoo Indications: Other seborrheic dermatitis 1 application to the scalp in the shower topically 3-4 times a week 236 mL 11 10/23/2022 Active clotrimazole 10 mg oral lozenge (1 source) Azole Antifungal Start: 04-05-2024 clotrimazole (MYCELEX) 10 mg christel Dissolve 1 Christel in the mouth in the morning and 1 Christel at noon and 1 Christel in the evening and 1 Christel before bedtime. 04/05/2024 Active CPAP/BIPAP/OTHER (20 sources) Start: 05-05-2022 End: [...] a note to see current settings/supplies/DME information. diclofenac sodium 0.01 mg/mg topical gel (11 sources) Nonsteroidal Anti-inflammatory Drug Start: 02-01-2024 diclofenac sodium 1 % gel APPLY DIRECTED TO AFFECTED AREA NEEDED 02/01/2024 Active Start: 02-01-2024 diclofenac sod ium (VOLTAREN ARTHRITIS PAIN) 1 % gel Apply 2 g topically 4 (four) times a day as needed. 02/01/2024 Active ergocalciferol 1.25 mg oral capsule (20 sources) Provitamin D2 Compound Start: 04-02-2024 ergocalciferol 50,00 0 unit capsule (VITAMIN D2, DRISDOL) Indications: Vitamin D deficiency Take 1cap by mouth twice a week x 10weeks, then once a week with food. 24 capsule 1 04/02/2024 Active Start: 06-12-2023 End: 04-02-2024 take 1 capsule by mouth every week ergocalciferol (DRISDOL) 1,250 mcg (50,000 unit) capsule Take 1 capsule (50,000 Units total) by mouth once a week. 10/20/2023 Active Start: 10-31-2022 End: 01-24-2023 take 1 capsule by mouth every week ergocalciferol (Vitamin D-2) 1.25 MG (35937 UT) capsule Take 1 capsule (50,000 Units) [...] 0 03/06/2021 Active take 1 capsule by [facility] every week ergocalciferol (Vitamin D2) 1.25 MG (26168 UT) capsule Take 50,000 Units by mouth 1 (one) time per week Active Comment on above: (take by mouth [...] mouth o nce a week with food. Ethinyl Estradiol / Ferrous fumarate / Norethindrone (5 sources) Estrogen Start: End: take 1 tablet by mouth once daily norethindrone-ethinyl estradiol-iron (Lo Loestrin Fe) 1 MG-10 MCG / 10 MCG tablet Indications: Menorrhagia with regular cycle Take 1 tablet by mouth Daily Take 1 tablet by mouth daily 28 tablet 11 03/23/2024 02/22/2025 Active fludrocortisone acetate 0.1 mg oral tablet (3 sources) Start: End: take 1 tablet by mouth at bedtime fludrocortisone (Florinef) 0.1 MG tablet Indications: Autonomic dysfunction Take 1 tablet (0.1 mg) by mouth at bedtime 30 tablet 06/01/2023 05/31/2024 Active fluocinonide 0.5 mg/ml topical solution (20 sources) Corticosteroid Start: Fluocinonide Active 1 APPLIC TOPICAL Daily October 20, 2023 12:00am Start: 07-15-2023 fluocinonide ( Lidex) 0.05 % external solution Indications: Other seborrheic dermatitis Apply to affected areas on the scalp, up to twice a day when flared, 30 day supply 20 mL 11 07/15/2023 Active Start: 10-20-2022 fluocinonide ( Lidex) 0.05 % external solution Apply topically once daily. apply to affected area on scalp topically qd-bid prn for 30 day(s) 0 10/20/2022 Active fluticasone propionate 0.05 mg/actuat metered dose nasal spray (11 sources) Corticosteroid Start: 12-04-2023 take 2 spray(s) nasal route in the morning fluticasone (Flonase) 50 MCG/ACT nasal spray Indications: Eustachian tube dysfunction, bilateral , Non-recurrent acute serous otitis media of both ears Administer 2 sprays into each nostril in the morning and 2 sprays before bedtime. Shake gently. Before first use, prime pump. After use, clean tip and replace cap.. 16 g 12 12/04/2023 Active fluticasone prop ionate (FLONASE) 50 mcg/actuation nasal spray Administer 2 sprays into each nostril as needed. Active folic acid 1 mg oral tablet [...] once daily. 90 tablet 3 11/28/2023 Active Comment on above: Take 1 tablet by kristal th once daily. TAKE 1 TABLET BY KRISTAL TH EVERY DAY hyoscyamine sulfate 0.125 mg oral tablet (2 sources) Start: take 1 tablet by mouth every six hours as needed for pain hyoscyamine (Anaspaz,Levsin) 0.125 MG tablet TAKE 1 TABLET BY MOUTH EVERY 6 HOURS NEEDED FOR ABDOMINAL PAIN 0 06/27/2023 Active ibuprofen 200 mg oral tablet (20 sources) Nonsteroidal Anti-inflammatory Drug ibuprofen (MOTRIN) 200 mg tablet Take 600 mg by mouth. Active ibuprofen 200 MG tablet every 8 (eight) hours. Active take 1 tablet by kristal every [...] Start: 04-23-2023 take 2 tablets by mo [facility] in the morning metoprolol tartrate (Lopressor) 50 MG tablet Take 100 mg by mouth in the morning and 100 mg before bedtime. 04/23/2023 Active Start: 05-25-2022 take 1 tablet [...] Discontinued Start: 01-19-2022 take 1 capsule by [facility] once daily naltrexone capsule [...] 0.4 mg unde r the tongue. nystatin [id number] unt/ml oral suspension (15 sources) Polyene Antifungal Start: 01-27-2024 End: 02-03-2024 nystatin (MYCOSTATIN) 100,000 unit/mL suspension Take 5 mL by mouth four times daily for 7 days. SWISH AND SWALLOW 1 TEASPOON(S) (5ML) 4 TIMES PER DAY. 140 mL 01/27/2024 02/03/2024 Active Start: 01-15-2023 nystatin (Myco statin) cream Indications: Candidiasis of skin Apply to left armpit BID until clear 15 g 01/15/2023 Active omeprazole 40 mg delayed release oral capsule (4 sources) Proton Pump Inhibitor Start: 03-16-2024 take 40 mg by mouth once daily Omeprazole Active 40 MG PO Daily March 16, 2024 12:00am Start: 08-09-2020 End: 02-25-2022 take 1 capsule by mouth twice daily omeprazole (PRILOSEC) 40 mg capsule Indications: Gastroesophageal reflux disease, unspecified whether esophagitis present Take 1 capsule by mouth twice daily. 30 capsule 2 08/09/2020 02/25/2022 Discontinued (Course of therapy completed) take 2 capsules by m out once daily omeprazole (PRILOSEC) 20 MG delayed release capsule Take 40 mg by mouth daily 0 Active Comment on above: Take 1 capsule by mo txh twice daily. ondansetron 4 mg disintegrating oral tablet (2 sources) Serotonin-3 Receptor Antagonist Start: 06-27-19 take 1 tablet by mouth every six hours as needed for nausea and vomiting ondansetron ODT (Zofran-ODT) 4 MG disintegrating tablet DISSOLVE 1 TABLET IN MOUTH EVERY 6 HOURS NEEDED FOR NAUSEA AND VOMITING 0 06/27/2023 Active predniSONE 10 mg oral tablet (20 sources) Start: 03-17-20 take 1 tablet by mouth once daily at mealtime predniSONE (DELTASONE) 10 mg tablet Indications: Other systemic lupus erythematosus with other organ involvement (HCC) TAKE 1 TABLET BY MOUTH EVERY DAY WITH FOOD NO ORAL NSAIDS 30 tablet 5 03/17/2024 Active Start: 01-12-2024 End: 03-17-2024 predniSONE (DELTASONE) 10 mg tablet Indications: Other systemic lupus erythematosus with other organ involvement (HCC) Take 40mg daily x 3, decrease by 5mg every 3days until taking 10mg daily with food thereafter (no oral nsaids) 120 tablet 1 01/12/2024 03/17/2024 Discontinued Start: 10-05-2023 End: 01-12-2024 take 10 mg [...] Start: 05-12-2023 take 1 tablet by kristal once daily predniSONE (Deltasone) 10 mg tablet [...] 5mg every 5days until 10mg daily thereafter 1000 ml sodium chloride 9 mg/ml injection (1 source) Start: 10-07-2020 0.9 % sodium chloride infusion tacrolimus 0.001 mg/mg topical ointment (11 sources) Calcineurin Inhibitor Immunosuppressant Start: 08-16-2023 tacrolimus (Protopic) 0.1 % ointment APPLY TO AFFECTED AREA TWICE DAILY WHEN FLARED 08/16/2023 Active Start: 08-16-2023 tacrolimus (DC OTOPIC) 0.1 % ointment Apply 1 Application topically as needed. 08/16/2023 Active thiamine 100 mg oral tablet (16 sources) Start: 06-01-2023 End: 02-06-2025 take 1 tablet by mouth in the morning thiamine (Vitamin B-1) 100 MG tablet Indications: Autoimmune disease (CMS/HCC) , Fibromyalgia , Numbness Take 1 tablet (100 mg) by mouth in the morning. 90 tablet 3 02/07/2024 02/06/2025 Active topiramate 25 mg oral tablet (20 sources) Start: 04-26-2023 End: 03-18-2024 take 1 tablet by mouth twice daily topiramate (TOPAMAX) 25 mg tablet Indications: Other chronic pain Take 1 tablet by mouth two times a day. 180 tablet 05/26/2023 03/18/2024 Discontinued (Course of therapy completed) Comment on above: Take 1 tablet by kristal th two times a day. tretinoin 0.5 mg/ml topical cream (11 sources) Retinoid Start: 07-15-2023 tretinoin (Retin-A) 0.05 % cream Indications: Striae atrophic Apply to face, once daily at evening/night time, 30 day supply 20 g 11 07/15/2023 Active triamcinolone acetonide 0.25 mg/ml topical lotion (16 sources) Corticosteroid Start: 06-23-2022 Triamcinolone Acetonide 0.025 % lotion 1 application. 06/23/2022 Active triamcinolone ac etonide (KENALOG) 0.025 % lotion Apply 1 Application topically as needed. Active Vitamin D 50 MCG (1999 UT) (4 sources) take 1 tablet by kristal th every week Vitamin D 50 MCG (1999 [...] Take 400 mg by mouth once daily. amLODIPine 5 mg oral tablet (5 sources) Dihydropyridine Calcium Channel Judie Start: 02-03-2024 End: 03-16-2024 take 1 tablet by mouth once daily amLODIPine (Norvasc) 5 MG tablet Take 5 mg by mouth Daily 02/03/2024 03/16/2024 Discontinued Start: 10-07-2020 take 1 tablet by kristal th once daily amLODIPine (NORVASC) 2.5 MG tablet Take 1 tablet by mouth daily 30 tablet 3 10/07/2020 Active biotin 10 mg oral tablet (20 sources) [...] Active Comment on above: Take by mouth. dexamethasone 2 mg oral tablet (4 sources) Corticosteroid Start: 4 End: dexAMETHasone (Decadron) 2 MG tablet Indications: Lumbosacral radiculopathy at L5 2mg 3 pills po X3 days,2 pills po daily X3 days , then 1 pill po daily X3 days then stop 9 days 18 pills 18 tablet 1 01/20/2024 03/16/2024 Discontinued dicyclomine hydrochloride 10 mg oral capsule (11 sources) Anticholinergic Start: End: take 1 capsule by mouth in the morning, then take 1 capsule by mouth in the evening, then take 1 capsule by mouth at bedtime dicyclomine (Bentyl) 10 MG capsule Take 10 mg by mouth in the morning and 10 mg in the evening and 10 mg before bedtime. 01/25/2024 03/16/2024 Discontinued Start: 09-22-2023 End: 10-20-2023 take 1 capsule by mouth twice daily as needed Dicyclomine Discontinued 10 MG PO Twice daily 60 September 22, 2023 12:00am October 20, 2023 1:07pm Take 1 capsule orally twice a day prn 0.5 ml dulaglutide 3 mg/ml auto-injector (20 sources) GLP-1 Receptor Agonist Start: 11-16-2022 End: 12-16-2022 inject 1.5 mg by subcutaneous injection every [...] sources) Serotonin and Norepinephrine Reuptake Inhibitor Start: 02-01-20 End: 03-16-20 take 1 capsule by mouth once daily DULoxetine (Cymbalta) [address] capsule Take 20 mg by mouth Daily 02/01/2024 03/16/2024 Discontinued Start: 10-29-2022 End: 04-26-2023 take 1 capsule by mouth once daily [...] above: Take 1 capsule by mo ut once daily. famotidine 20 mg oral tablet (3 sources) Histamine-2 Receptor Antagonist Start: End: 2 take 1 tablet by mouth once daily at bedtime famotidine (PEPCID) 20 mg tablet Take 20 mg by mouth daily at bedtime. 0 07/21/2020 10/24/2021 Discontinued take 1 tablet by kristal twice daily as needed famotidine (PEPCID) 20 mg tablet Take 1 tablet (20 mg total) by mouth 2 (two) times a day as needed. Active Comment on above: Take 20 mg by mouth daily at bedtime. fidaxomicin 200 mg oral tablet (14 sources) Macrolide Antibacterial Start: End: take 1 tablet by mouth every other [...] 2023 2:11pm gentamicin 0.001 mg/mg topical ointment (5 sources) Start: 11-22-2023 End: 12-16-2023 Gentamicin Discontinued 1 APPLIC TOPICAL Three times daily 15 November 22, 2023 12:00am December 16, 2023 2:12pm hydroxychloroquine sulfate 200 mg oral tablet (20 sources) Antimalarial, Antirheumatic Agent Start: 10-20-2023 take 400 mg by mouth once daily Hydroxychloroquine Active 400 MG PO Daily October 20, 2023 12:00am Start: 10-19-2023 End: 03-16-2024 hydrOXYchloroQUINE (PLAQUENI L) 200 mg tablet Indications: [...] on med. 180 tablet 3 10/24/2021 Active take 1 tablet by kristal th in the morning hydroxychloroquine 400 mg tablet Take 400 mg by mouth in the morning. Active hydroxychloroqui ne (Plaquenil) 400 MG tablet 1 (one) time each day at the same time. Active hydroxychloroqui ne (Plaquenil) 400 MG tablet 1 (one) time each day at the same time. 0 Active End: 03-12-2022 hydroxychloroquine sulfate (HYDROXYCHLOROQUINE ORAL) Hydroxychloroquine Sulfate Active 0 03/12/2022 Discontinued (Duplicate Entry) Hydroxychloroqui ne Sulfate Active Comment on above: Take one tab by mout h twice a day with food. Sunscreen when outdoors. See ophthalmology every 6-12months on med. Hydroxychloroquine S ulfate Active TAKE 1 TAB TWICE A D AY WITH FOOD *SUNSCREEN WHILE OUTDOORS/OPHTHAMOLOGY EVERY 6-12 MONTHS WHILE ON* itraconazole 100 mg oral capsule (2 sources) Azole Antifungal Start: End: take 1 capsule by mouth once daily itraconazole (Sporanox) 100 MG capsule Indications: Oral thrush Take 1 capsule (100 mg) by mouth Daily for 5 days 5 capsule 04/03/2024 04/08/2024 pantoprazole 40 mg delayed release oral tablet (11 sources) Proton Pump Inhibitor Start: End: take 1 tablet by mouth once daily pantoprazole (ProtoNix) 40 MG EC tablet Take 40 mg by mouth Daily 01/26/2024 03/16/2024 Discontinued Start: 09-22-2023 End: 10-20-2023 take 1 tablet by mouth once daily Pantoprazole Discontinued 40 MG PO Daily September 22, 2023 12:00am October 20, 2023 1:07pm Take 1 tablet orally once a day. phentermine hydrochloride 37.5 mg oral tablet (17 sources) Sympathomimetic Amine Anorectic Start: 04-26-2023 End: 03-16-2024 take 1 tablet by mouth before mealtime phentermine (Adipex-P) 37.5 MG tablet Take 37.5 mg by mouth in the morning. Take before meals. 05/26/2023 03/16/2024 Discontinued Comment on above: Take 1 tablet by kristal th daily before breakfast for 30 days. Take 1 tablet by kristla th daily before breakfast for 90 days. pravastatin sodium 20 mg oral tablet (13 sources) HMG-CoA Reductase Inhibitor Start: 01-26-2024 End: 03-16-2024 take 1 tablet by mouth once daily pravastatin (Pravachol) 20 MG tablet Take 20 mg by mouth Daily 01/26/2024 03/16/2024 Discontinued Start: 10-20-2023 End: 10-20-2023 take 20 mg by mouth once daily Pravastatin Discontinue d 20 MG PO Daily October 20, 2023 12:00am October 20, 2023 1:08pm Start: 06-24-2023 take 1 tablet by kristal th once daily pravastatin (Pravachol) 20 MG tablet TAKE 1 TABLET BY MOUTH EVERY DAY FOR 30 DAYS 0 06/24/2023 Active pregabalin 100 mg oral capsule (20 sources) Start: 12-15-2023 End: 03-16-2024 take 1 capsule by mouth in the morning, then take 1 capsule by mouth in the evening, then take 1 capsule by mouth at bedtime pregabalin (Lyrica) 100 MG capsule Indications: Lumbosacral radiculopathy Take 1 capsule (100 mg) by mouth in the morning and 1 capsule (100 mg) in the evening and 1 capsule (100 mg) before bedtime. 90 capsule 2 12/15/2023 03/16/2024 Discontinued Start: 10-20-2023 take 225 mg by mouth once ankur y Pregabalin Active 225 MG PO Daily October [...] times a day 270 capsule 3 03/02/2023 Active Lyrica Active Comment on above: TAKE 1 CAPSULE BY MO [facility] 3 TIMES A DAY FOR 30 DAYS TAKE 1 CAPSULE BY MO [facility] 3 TIMES A DAY take 1 capsule by mo ut three times a day VIT/IRON FUMARATE/FA ( VITAMIN ORAL) (2 sources) [...] Comment on above: Take [address] [facility] once daily. rivaroxaban 15 mg oral tablet (4 sources) Factor Xa Inhibitor Start: 12-06-19 End: 03-16-20 take 1 tablet by mouth at mealtime Xarelto 15 MG tablet Take 15 mg by mouth in the evening. Take with meals 12/06/2023 03/16/2024 Discontinued simvastatin 20 mg oral tablet (20 sources) HMG-CoA Reductase Inhibitor Start: 03-10-20 End: 04-26-20 23 simvastatin (ZOCOR) 20 mg tablet terbinafine 250 mg oral tablet (3 sources) Allylamine Antifungal Start: 04-02-20 End: 04-07-20 take 1 tablet by mouth once daily terbinafine (LamISIL) 250 MG tablet Indications: Oral thrush Take 1 tablet (250 mg) by mouth Daily for 5 days 5 tablet 04/02/2024 04/03/2024 Discontinued vitamin b12 1 mg/ml injectable solution (8 sources) Vitamin B12 Start: 03-23-20 End: 03-23-20 inject 1 dose by intramuscular injection once 1,000 mcg, INTRAMUSCULAR, ONCE, 1 dose, On [place] 03/23/24 at 1030 Start: 02-21-2024 End: 02-21-2024 inject 1 dose by intramuscular injection once 1,000 mcg, INTRAMUSCULAR, ONCE, 1 dose, On 02/21/24 at 1100 Start: 01-25-2024 End: 01-25-2024 inject 1 dose by intramuscular injection once 1,000 mcg, INTRAMUSCULAR, ONCE, 1 dose, On 01/25/24 at 1130 Start: 12-28-2023 inject 1 mL by subcu taneous injection every 30 days cyanocobalamin (VITAMIN B-12) 1,000 mcg/mL injection Inject 1 mL (1,000 mcg total) under the skin every 30 (thirty) days. 12/28/2023 Active Start: 12-27-2023 End: 12-27-2023 cyanocobalamin 1,000 mcg inj ection Start: 11-29-2023 End: 11-29-2023 cyanocobalamin 1,000 mcg inj ection Start: 10-27-2023 End: 10-27-2023 cyanocobalamin 1,000 mcg inj ection Start: 09-30-2023 End: 09-30-2023 cyanocobalamin 1,000 mcg inj ection Problems Active Problems Problem Classification Problem Date Documented Da te Episodic/Chronic Abdominal pain (10 sources) Finding of sensation of abdomen; Translations: [Unspecified abdominal pain] 09-22-2023 Episodic Anxiety disorders (15 sources) Anxiety; Translations: [Anxiety disorder, unspecified] Onset: 4 06-09-2023 Chronic Bacterial infection; unspecified site (1 source) Bacterial infection due to Pseudomonas; Translations: [Other bacterial infections of unspecified site] 01-27-2024 Episodic Cardiac dysrhythmias (20 sources) Postural orthostatic tachycardia syndrome ; Translations: [POTS (postural orthostatic tachycardia syndrome)] Onset: 4 Chronic Deficiency and other anemia (4 sources) Anemia of chronic disease; Translations: [Anemia in other chronic diseases classified elsewhere] Chronic Diabetes mellitus without complication (8 sources) Increased glucose level; Translations: [Other abnormal glucose] Onset: 2 Episodic Disorders of lipid metabolism (20 sources) Hyperlipidemia; Translations: [Hyperlipidemia, unspecified] Onset: 5 05-31-2014 Chronic Esophageal disorders (20 sources) Laryngopharyngeal reflux; Translations: [Gastro-esophageal reflux disease without esophagitis] Onset: 4 07-06-2023 Chronic Essential hypertension (20 sources) Essential hypertension; Translations: [Essential (primary) hypertension] Onset: 4 06-09-2023 Chronic Fever of unknown origin (1 source) Pyrexia of unknown origin; Translations: [Fever, unspecified] 04-26-2023 Episodic Immunity disorders (8 sources) Hypogammaglobulinemia; 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] Onset: 4 04-01-2024 Chronic Intestinal infection (20 sources) Clostridium difficile diarrhea; Translations: [Enterocolitis due to Clostridium difficile, not specified as recurrent] 09-22-2023 Episodic Malaise and fatigue (20 sources) Malaise and fatigue; Translations: [Chronic fatigue, unspecified] Onset: 4 Chronic Menstrual disorders (20 sources) Excessive and frequent menstruation with irregular cycle; Translations: [Menometrorrhagia] Onset: 3 Chronic Mood disorders (20 sources) Recurrent depression; Translations: [Major depressive disorder, recurrent, unspecified] Onset: 4 06-18-2014 Chronic Mycoses (3 sources) Candidiasis of mouth; Translations: [Candidal stomatitis] 04-02-2024 Episodic Nonmalignant breast conditions (4 sources) Mammary duct ectasia; 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] 12-16-2023 Chronic Nutritional deficiencies (20 sources) Vitamin D deficiency; Translations: [Vitamin D deficiency, unspecified] Onset: 1 Chronic Osteoarthritis (20 sources) Degenerative joint disease involving multiple joints; 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] Onset: 1 Chronic Osteoporosis (20 sources) 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; Translations: [Other osteoporosis without current pathological fracture] Onset: 3 02-04-2023 Chronic Other aftercare (3 sources) Drug therapy status; Translations: [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 ad terminal makeup operator 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] Episodic Other aftercare (1 source) Polypharmacy ; Translations: [Other retirement (current) drug therapy] Episodic Other aftercare (1 source) Long-term 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 drug therapy; Translations: [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 ad terminal makeup operator 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] 11-11-2023 Episodic Other circulatory disease (20 sources) Raynaud's disease; Translations: [Raynaud's syndrome without gangrene] Onset: 3 02-04-2023 Chronic Other congenital anomalies (1 source) Peter-Danlos syndrome; 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, unspecified] 03-18-2024 Chronic Other connective tissue disease (1 source) Pain in left foot; Translations: [Pain in left foot] Onset: 9 Episodic Other connective tissue disease (1 source) Pain in right foot; Translations: [Pain in right foot] Onset: 9 Episodic Other connective tissue disease (20 sources) Paraparesis; Translations: [Other symptoms and signs involving the musculoskeletal system] Onset: 1 03-05-2021 Episodic Other connective tissue disease (2 sources) Pain of bilateral hands; Translations: [Pain in right hand] 10-05-2023 Episodic Other connective tissue disease (2 sources) Pain in lower limb; Translations: [Pain in leg, unspecified] 04-06-2024 Episodic Other female genital disorders (2 sources) Abnormal uterine bleeding; Translations: [Abnormal uterine and vaginal bleeding, unspecified] 03-23-2024 Chronic Other gastrointestinal disorders (7 sources) Diarrhea; Translations: [Diarrhea, unspecified] 09-22-2023 Episodic Other gastrointestinal disorders (3 sources) Diarrhea, unspecified; Translations: [Diarrhea] 09-22-2023 Episodic Other infections; including parasitic (7 sources) Disorder due to infection; Translations: [Personal history of other infectious and parasitic diseases] Onset: 4 04-01-2024 Episodic Other infections; including parasitic (1 source) Personal history of other infectious and parasitic diseases; Translations: [Frequent infections] Onset: 4 Episodic Other inflammatory condition of skin (20 sources) Discoid lupus erythematosus; 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] Onset: 2 03-12-2022 Chronic Other inflammatory condition of skin (3 sources) Discoid lupus erythematosus; Translations: [DISCOID LUPUS ERYTHEMATOSUS] Onset: 2 Chronic Other inflammatory condition of skin (1 source) Lupus erythematosus; 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] Onset: 4 04-06-2024 Chronic Other injuries and conditions due to external causes (1 source) Delayed healing of wound; Translations: [Other injury of unspecified body region, subsequent encounter] Episodic Other lower respiratory disease (2 sources) Snoring; Translations: [Snoring] Episodic Other nervous system disorders (20 sources) Chronic pain syndrome; Translations: [Chronic pain syndrome] Onset: 4 06-18-2014 Chronic Other nervous system disorders (6 sources) Chronic pain; Translations: [Other chronic pain] 04-26-2023 Chronic Other nervous system disorders (19 sources) Disorder of autonomic nervous system; Translations: [Disorder of the autonomic nervous system, unspecified] Onset: 4 06-09-2023 Chronic Other nervous system disorders (8 sources) Other chronic pain; Translations: [Other chronic pain] Onset: 4 01-28-2024 Chronic Other nervous system disorders (2 sources) Disorder of the autonomic nervous system, unspecified; Translations: [Disorder of the autonomic nervous system, unspecified] Onset: 4 Chronic Other nervous system disorders (2 sources) Cold extremity; Translations: [Unspecified disturbances of skin sensation] 04-06-2024 Episodic Other non-traumatic joint disorders (20 sources) [...] Chronic Other nutritional; endocrine; and metabolic disorders (8 sources) Insulin resistance; Translations: [Insulin resistance, unspecified] [...] Onset: 2 Episodic Other upper respiratory disease (12 sources) Chronic pharyngolaryngitis; Translations: [Chronic laryngitis] Onset: 4 07-06-2023 Chronic Ovarian cyst (1 source) Unspecified ovarian cyst, left side; Translations: [UNSPECIFIED OVARIAN CYST LEFT SIDE] Onset: 3 Episodic Residual codes; unclassified (20 sources) Obstructive sleep apnea syndrome; Translations: [Obstructive sleep apnea (adult) (pediatric)] Onset: 2 Chronic Residual codes; unclassified (3 sources) Obstructive sleep apnea (adult) (pediatric); Translations: [...] limb edema; Translations: [Localized edema] 07-13-2023 Episodic Rheumatoid arthritis and related disease (2 sources) Rheumatoid arthritis; Translations: [Rheumatoid arthritis, unspecified] Onset: 2 04-06-2024 Chronic Spondylosis; intervertebral disc disorders; other back [...] in systemic lupus erythematosus] Onset: 2 Chronic Thyroid disorders (10 sources) Thyroid nodule; Translations: [Nontoxic single thyroid nodule] Onset: 4 08-10-2023 Chronic Unclassified (1 source) Supraventricular tachycardia, unspecified (CMS-HCC); Translations: [Supraventricular tachycardia, unspecified (CMS-HCC)] Onset: 4 Unclassified (1 source) Supraventricular tachycardia, unspecified; Translations: [Supraventricular tachycardia, unspecified] Onset: 4 Unclassified (1 source) Established Patient Follow-Up Onset: 3 Past or Other Problems Problem Classification Problem Date Documented Date Episodic/Chronic Cardiac dysrhythmias (19 sources) Tachycardia, unspecified; Translations: [Tachycardia] Onset: 10-15-2021 Resolved: 11-26-2021 Episodic Coma; stupor; and brain damage (20 sources) Daytime somnolence; Translations: [Somnolence] Onset: 05-20-2022 Episodic Conditions associated with dizziness or vertigo (13 sources) Dizziness; Translations: [Dizziness and giddiness] Onset: 06-01-2023 06-01-2023 Episodic Deficiency and other anemia (20 sources) Megaloblastic anemia due to vitamin B>12< deficiency; Translations: [Other megaloblastic anemias, not elsewhere classified] Onset: 03-04-2022 03-04-2022 Episodic Deficiency and other anemia (1 source) Anemia, unspecified; Translations: [ANEMIA UNSPECIFIED] Onset: 03-11-2022 Episodic Deficiency and other anemia (20 sources) Anemia; Translations: [Anemia, unspecified] Onset: 03-11-2022 03-10-2023 Episodic Deficiency and other anemia (1 source) Other megaloblastic anemias, not elsewhere classified; Translations: [Megaloblastic anemia due to vitamin B12 deficiency] Onset: 03-04-2022 Episodic Diseases of mouth; excluding dental (12 sources) Oral lesion; Translations: [Unspecified lesions of oral mucosa] Onset: 07-06-2023 07-06-2023 Episodic E Codes: Fall (1 source) Fall on same level from slipping, tripping and stumbling without subsequent striking against object, initial encounter; Translations: [FALL SAME LVL SLIP NO STRK OBJ INIT] Onset: 03-23-2022 Episodic Headache; including migraine (13 sources) Headache; Translations: [Nonintractable episodic headache] Onset: 06-01-2023 06-01-2023 Episodic Immunizations and screening for infectious disease (20 sources) Anti-nuclear factor positive; Translations: [Other specified abnormal immunological findings in serum] Onset: 03-05-2021 Episodic Joint disorders and dislocations; trauma-related (1 source) Unspecified subluxation of right patella, initial encounter; Translations: [UNS SUBLUXATION RT PATELLA INITIAL] Onset: 03-23-2022 Episodic Lymphadenitis (20 sources) Lymphadenopathy; Translations: [Enlarged lymph nodes, unspecified] Onset: 03-05-2021 03-05-2021 Episodic Nonmalignant breast conditions (19 sources) Discharge from nipple; Translations: [Nipple discharge] Onset: 11-15-2023 12-16-2023 Episodic Nutritional deficiencies (20 sources) Cobalamin deficiency; Translations: [Deficiency of other specified B group vitamins] Onset: 05-31-2014 Episodic Other aftercare (20 sources) Drug therapy finding; Translations: [Other retirement (current) drug therapy] Onset: 03-05-2021 Episodic Other aftercare (20 sources) H/O: high risk medication; Translations: [Other ad terminal makeup operator (current) drug therapy] Onset: 06-15-2022 06-15-2022 Episodic Other aftercare (1 source) Other ad terminal makeup operator (current) drug therapy; Translations: [OTH TABLE GAMES DEALER 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 THERAPY] Onset: 03-23-2022 Episodic Other aftercare (20 sources) Long-term 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 systemic steroid; Translations: [MCFP (current) use of 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] Onset: 02-04-2023 [...] to limbs] Onset: 03-05-2021 03-05-2021 Episodic Other connective tissue disease (12 sources) Enthesopathy of hip region; Translations: [Other specified enthesopathies of unspecified lower limb, excluding foot] Onset: 07-06-2023 07-06-2023 Episodic Other connective tissue disease (12 sources) Muscle pain; Translations: [Myalgia, unspecified site] [...] Onset: 03-21-2022 Episodic Other lower respiratory disease (13 sources) Dyspnea; Translations: [Shortness of breath] Onset: 07-13-2023 07-13-2023 Episodic Other lower respiratory disease (1 source) Shortness of breath; Translations: [Shortness of breath] Onset: 07-13-2023 Episodic Other nervous system disorders (20 sources) Ataxia; Translations: [Ataxia, unspecified] Onset: 05-31-2014 05-31-2014 Episodic Other nervous system disorders (12 sources) Skin sensation disturbance; Translations: [Unspecified disturbances of skin sensation] Onset: 07-06-2023 07-06-2023 Episodic Other nervous system disorders (10 sources) Paresthesia; Translations: [Paresthesia of skin] Onset: 11-08-2023 11-08-2023 Episodic Other non-traumatic joint disorders (5 sources) [...] [Nonscarring hair loss, unspecified] Onset: 03-05-2021 Episodic Other upper respiratory disease (10 sources) Hoarse; Translations: [Dysphonia] Onset: 08-10-2023 08-10-2023 Episodic Residual codes; unclassified (20 sources) FH: [...] unspecified; Translations: [Supraventricular tachycardia, unspecified] Onset: 07-13-2023 Viral infection (20 sources) Cytomegaloviral disease, unspecified; 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] Onset: 09-11-2021 Resolved: 11-26-2021 Episodic Results Test Name Value Interpretation Reference Range Facility [facility] 04-10-2024 [facility] Normal [facility] 04-02-2024 [facility] Normal [facility] 25(OH)D3 [facility] 2023 25-hydroxyvitamin D3 [Mass/Vol] 19.9 ng/mL Low 31.0-80.0 [facility] Comment on above: Order Comment: Speci men Type: BLOOD SPECIMENOrdering Facility: [facility] Address: [address] [place] [address] Result Comment: Clas sification of 25 [place] Vitamin D status:Deficiency/Insufficiency: < or = 30 ng/ml.Sufficiency/Optimal Levels: 31-80 ng/mLToxicity: > 100 ng/mL.Test performed by chemiluminescent immunoassay. Performed By: #### 1 989-3 ####[facility] LABIA [id number] [address] OF [facility] BLOOD TB SCREENon 03-23-2024 M. tuberculosis tuberculin stim IFN-g Ql (Bld) Negative Normal [facility] Comment on above: Order Comment: Speci men Type: BLOOD SPECIMENOrdering Facility: [facility] Address: [address] [place] [address] Performed By: #### I NFTBP ####[facility] [id number] [address] STATES OF [facility] MITOGEN MINUS NIL >10.00 Normal >=0.50 [facility] Comment on above: Order Comment: Speci men Type: BLOOD SPECIMENOrdering Facility: [facility] Address: [address] [place] [address] Performed By: #### I NFTBP ####[facility] [id number] [address] STATES OF [facility] TB GAMMA INTERPRETATION Normal [facility] Comment on above: Order Comment: Speci men Type: BLOOD SPECIMENOrdering Facility: [facility] Address: [address] [place] [address] Performed By: #### I NFTBP ####[facility] LABIA [id number] [address] TB NIL <0.00 Normal <=8.00 [facility] Comment on above: Order Comment: Speci men Type: BLOOD SPECIMENOrdering Facility: [facility] Address: [address] [place] [address] Performed By: #### I NFTBP ####[facility] LABIA [id number] [id number] [address] [place] TB1 AG MINUS NIL 0.00 IU/mL Normal <0.35 [facility] Comment on above: Order Comment: Speci men Type: BLOOD SPECIMENOrdering Facility: [facility] Address: [address] [place] [address] Performed By: #### I NFTBP ####[facility] LABCLIA [id number] [address] [place] TB2 AG MINUS NIL 0.00 IU/mL Normal <0.35 [facility] Comment on above: Order Comment: Speci men Type: BLOOD SPECIMENOrdering Facility: [facility] Address: [address] [place] [address] Performed By: #### I NFTBP ####[facility] LABCLIA [id number] [place] [address] [place] Bacteria Bld Culton 03-23-20 24 Bacteria identified Cx Nom (Bld) CULTURE, BLOOD: No growth 5 days Normal [facility] Comment on above: Performed By: #### 6 00-7 ####[facility] LABCLIA [id number] [place] [address] [place] CBC W Auto Differential pane l (Bld)on 03-23-2024 Basophils (Bld) [#/Vol] 0.06 10*3/uL Normal <0.11 [facility] Comment on above: Order Comment: Speci men Type: BLOOD SPECIMENOrdering Facility: [facility] Address: [address] [place] [address] Performed By: #### 5 7021-8 ####[facility] LABCLIA [id number] [place] [address] Basophils/100 WBC (Bld) 0.5 % Normal [facility] Comment on above: Order Comment: Speci men Type: BLOOD SPECIMENOrdering Facility: [facility] Address: [address] [place] [address] Performed By: #### 5 7021-8 ####[facility] LABCLIA [id number] [place] [address] Differential cell count method Nom (Bld) Auto Normal [facility] Comment on above: Order Comment: Speci men Type: BLOOD SPECIMENOrdering Facility: [facility] Address: [address] [place] [address] Performed By: #### 5 7021-8 ####[facility] LABCLIA [id number] [place] [address] Eosinophils (Bld) [#/Vol] 0.13 10*3/uL Normal <0.46 [facility] Comment on above: Order Comment: Speci men Type: BLOOD SPECIMENOrdering Facility: [facility] Address: [address] [place] [address] Performed By: #### 5 7021-8 ####[facility] LABCLIA [id number] [place] [address] Eosinophils/100 WBC (Bld) 1.0 % Normal [facility] Comment on above: Order Comment: Speci men Type: BLOOD SPECIMENOrdering Facility: [facility] Address: [address] [place] [address] Performed By: #### 5 7021-8 ####[facility] LABCLIA [id number] [place] [address] Erythrocyte distribution width (RBC) [Ratio] 15.2 % High 11.5-15.0 [facility] Comment on above: Order Comment: Speci men Type: BLOOD SPECIMENOrdering Facility: [facility] Address: [address] [place] [address] Performed By: #### 5 7021-8 ####[facility] LABCLIA [id number] [place] [address] Hematocrit (Bld) [Volume fraction] 39.3 % Normal 36.0-46.0 [facility] Comment on above: Order Comment: Speci men Type: BLOOD SPECIMENOrdering Facility: [facility] Address: [address] [place] [address] Performed By: #### 5 7021-8 ####[facility] LABIA [id number] [place] [address] Hemoglobin (Bld) [Mass/Vol] 13.1 g/dL Normal 11.5-15.5 [facility] Comment on above: Order Comment: Speci men Type: BLOOD SPECIMENOrdering Facility: [facility] Address: [address] [place] [address] Performed By: #### 5 7021-8 ####[facility] LABIA [id number] [place] [address] Immature granulocytes (Bld) [#/Vol] 0.12 10*3/uL High <0.10 [facility] Comment on above: Order Comment: Speci men Type: BLOOD SPECIMENOrdering Facility: [facility] Address: [address] [place] [address] Performed By: #### 5 7021-8 ####[facility] LABIA [id number] [place] [address] Immature granulocytes/100 WBC (Bld) 0.9 % Normal [facility] Comment on above: Order Comment: Speci men Type: BLOOD SPECIMENOrdering Facility: [facility] Address: [address] [place] [address] Performed By: #### 5 7021-8 ####[facility] LABCLIA [id number] [place] [address] Lymphocytes (Bld) [#/Vol] 2.03 10*3/uL Normal 1.00-4.00 [facility] Comment on above: Order Comment: Speci men Type: BLOOD SPECIMENOrdering Facility: [facility] Address: [address] [place] [address] Performed By: #### 5 7021-8 ####[facility] LABCLIA [id number] [place] [address] Lymphocytes/100 WBC (Bld) 15.7 % Normal [facility] Comment on above: Order Comment: Speci men Type: BLOOD SPECIMENOrdering Facility: [facility] Address: [address] [place] [address] Performed By: #### 5 7021-8 ####[facility] LABCLIA [id number] [place] [address] MCH (RBC) [Entitic mass] 31.3 pg Normal 26.0-34.0 [facility] Comment on above: Order Comment: Speci men Type: BLOOD SPECIMENOrdering Facility: [facility] Address: [address] [place] [address] Performed By: #### 5 7021-8 ####[facility] LABCLIA [id number] [place] [address] MCHC (RBC) [Mass/Vol] 33.3 g/dL Normal 30.5-36.0 [facility] Comment on above: Order Comment: Speci men Type: BLOOD SPECIMENOrdering Facility: [facility] Address: [address] [place] [address] Performed By: #### 5 7021-8 ####[facility] LABCLIA [id number] [place] [address] MCV (RBC) [Entitic vol] 93.8 fL Normal 80.0-100.0 [facility] Comment on above: Order Comment: Speci men Type: BLOOD SPECIMENOrdering Facility: [facility] [facility] Address: [address] [place] [address] Performed By: #### 5 7021-8 ####[facility] LABCLIA [id number] [place] [address] Monocytes (Bld) [#/Vol] 0.65 10*3/uL Normal <0.87 [facility] Comment on above: Order Comment: Speci men Type: BLOOD SPECIMENOrdering Facility: [facility] Address: [address] [place], [place] [address] Performed By: #### 5 7021-8 ####[facility] LABCLIA [id number] [place] [address] Monocytes/100 WBC (Bld) 5.0 % Normal [facility] Comment on above: Order Comment: Speci men Type: BLOOD SPECIMENOrdering Facility: [facility] Address: [address] [place] [address] Performed By: #### 5 7021-8 ####[facility] LABCLIA [id number] [place] [address] Neutrophils (Bld) [#/Vol] 9.90 10*3/uL High 1.45-7.50 [facility] Comment on above: Order Comment: Speci men Type: BLOOD SPECIMENOrdering Facility: [facility] Address: [address] [place] [address] Performed By: #### 5 7021-8 ####[facility] LABCLIA [id number] [place] [address] Neutrophils/100 WBC (Bld) 76.9 % Normal [facility] Comment on above: Order Comment: Speci men Type: BLOOD SPECIMENOrdering Facility: [facility] Address: [address] [place] [address] Performed By: #### 5 7021-8 ####[facility] LABCLIA [id number] [place] [address] Nucleated RBC (Bld) [#/Vol] 10*3/uL Normal <0.01 [facility] Comment on above: Order Comment: Speci men Type: BLOOD SPECIMENOrdering Facility: [facility] Address: [address] [place] [address] Performed By: #### 5 7021-8 ####[facility] LABCLIA [id number] [place] [address] Nucleated RBC/100 WBC (Bld) [Ratio] 0.0 /100 WBC Normal [facility] Comment on above: Order Comment: Speci men Type: BLOOD SPECIMENOrdering Facility: [facility] Address: [address] [place] [address] Performed By: #### 5 7021-8 ####[facility] LABCLIA [id number] [place] [address] Platelet mean volume (Bld) [Entitic vol] 10.0 fL Normal 9.0-12.7 [facility] Comment on above: Order Comment: Speci men Type: BLOOD SPECIMENOrdering Facility: [facility] Address: [address] [place] [address] Performed By: #### 5 7021-8 ####[facility] LABCLIA [id number] [place] [address] Platelets (Bld) [#/Vol] 262 10*3/uL Normal 150-400 [facility] Comment on above: Order Comment: Speci men Type: BLOOD SPECIMENOrdering Facility: [facility] Address: [address] [place] [address] Performed By: #### 5 7021-8 ####[facility] LABIA [id number] [place] [address] RBC (Bld) [#/Vol] 4.19 10*6/uL Normal 3.90-5.20 [facility] Comment on above: Order Comment: Speci men Type: BLOOD SPECIMENOrdering Facility: [facility] Address: [address] [place] [address] Performed By: #### 5 7021-8 ####[facility] LABCLIA [id number] [place] [address] WBC (Bld) [#/Vol] 12.89 10*3/uL High 3.70-11.00 [facility] Comment on above: Order Comment: Speci men Type: BLOOD SPECIMENOrdering Facility: [facility] Address: [address] [place] [address] Performed By: #### 5 7021-8 ####[facility] LABCLIA [id number] [place] [address] CNNURSEon 03-23-2024 CNNURSE Normal [facility] CRP SerPl-mCncon 03-23-2024 CRP [Mass/Vol] 0.3 mg/dL Normal <0.9 [facility] Comment on above: Order Comment: Speci men Type: BLOOD SPECIMENOrdering Facility: [facility] Address: [address] [place] [address] Performed By: #### 1 988-5, 63067-8, 2276-4 ####[facility] LABCLIA [id number] [place] [address] [place] Comprehensive metabolic 2000 panelon 03-23-2024 Albumin [Mass/Vol] 3.9 g/dL Normal 3.9-4.9 [facility] Comment on above: Order Comment: Speci men Type: BLOOD SPECIMENOrdering Facility: [facility] Address: [address] [place] [address] Performed By: #### 2 4323-8 ####[facility] LABCLIA [id number] [place] [address] [place] ALP [Catalytic activity/Vol] 70 U/L Normal 34-123 [facility] Comment on above: Order Comment: Speci men Type: BLOOD SPECIMENOrdering Facility: [facility] Address: [address] [place] [address] Performed By: #### 2 4323-8 ####[facility] LABCLIA [id number] [address] [address] [place] ALT [Catalytic activity/Vol] 27 U/L Normal 7-38 [facility] Comment on above: Order Comment: Speci men Type: BLOOD SPECIMENOrdering Facility: [facility] Address: [address] [place] [address] Performed By: #### 2 4323-8 ####[facility] LABCLIA [id number] [place] [address] [place] Anion gap [Moles/Vol] 15 mmol/L Normal 8-15 [facility] Comment on above: Order Comment: Speci men Type: BLOOD SPECIMENOrdering Facility: [facility] Address: [address] [place] [address] Performed By: #### 2 4323-8 ####[facility] LABCLIA [id number] [place] [address] [place] AST [Catalytic activity/Vol] 20 U/L Normal 13-35 [facility] Comment on above: Order Comment: Speci men Type: BLOOD SPECIMENOrdering Facility: [facility] Address: [address] [place] [address] Performed By: #### 2 4323-8 ####[facility] LABCLIA [id number] [place] [address] [place] Bilirubin [Mass/Vol] mg/dL Low 0.2-1.3 [facility] Comment on above: Order Comment: Speci men Type: BLOOD SPECIMENOrdering Facility: [facility] Address: [address] [place] [address] Performed By: #### 2 4323-8 ####[facility] LABCLIA [id number] [place] [address] [place] Calcium [Mass/Vol] 9.2 mg/dL Normal 8.5-10.2 [facility] Comment on above: Order Comment: Speci men Type: BLOOD SPECIMENOrdering Facility: [facility] Address: [address] [place], [place] [address] Performed By: #### 2 4323-8 ####[facility] LABCLIA [id number] [place] [address] [place] Chloride [Moles/Vol] 104 mmol/L Normal 98-107 [facility] Comment on above: Order Comment: Speci men Type: BLOOD SPECIMENOrdering Facility: [facility] Address: [address] [place] [address] Performed By: #### 2 4323-8 ####[facility] LABCLIA [id number] [place] [address] [place] CO2 [Moles/Vol] 20 mmol/L Low 22-30 [facility] Comment on above: Order Comment: Speci men Type: BLOOD SPECIMENOrdering Facility: [facility] Address: [address] [place] [address] Performed By: #### 2 4323-8 ####[facility] LABCLIA [id number] [place] [address] [place] Creatinine [Mass/Vol] 0.61 mg/dL Normal 0.58-0.96 [facility] Comment on above: Order Comment: Speci men Type: BLOOD SPECIMENOrdering Facility: [facility] Address: [address] [place] [address] Performed By: #### 2 4323-8 ####[facility] LABIA [id number] [place] [address] [place] Creatinine and Glomerular filtration rate.predicted panel (S/P/Bld) 114 mL/min/1.73m??? Normal >=60 [facility] Comment on above: Order Comment: Speci men Type: BLOOD SPECIMENOrdering Facility: [facility] Address: [address] [place] [address] Result Comment: Erin mated Glomerular Filtration Rate [...] actual GFR. Performed By: #### 2 4323-8 ####[facility] LABCLIA [id number] [address] [address] [place] Glucose [Mass/Vol] 152 mg/dL High 74-99 [facility] Comment on above: Order Comment: Speci men Type: BLOOD SPECIMENOrdering Facility: [facility] Address: [address] [place], [place] [id number] Result Comment: The [place] [employer] (ADA) provides guidance for cutoff [...] Standards of Medical Care in Diabetes 2016, [place] [employer]. Diabetes Care. 2016.39(Suppl 1). Performed By: #### 2 4323-8 ####[facility] LABCLIA [id number] [place] [address] [place] Potassium [Moles/Vol] 4.3 mmol/L Normal 3.7-5.1 [facility] Comment on above: Order Comment: Speci men Type: BLOOD SPECIMENOrdering Facility: [facility] Address: [address] [place] [address] Performed By: #### 2 4323-8 ####[facility] LABCLIA [id number] [place] [address] [place] Protein [Mass/Vol] 6.6 g/dL Normal 6.3-8.0 [facility] Comment on above: Order Comment: Speci men Type: BLOOD SPECIMENOrdering Facility: [facility] Address: [address] [place] [address] Performed By: #### 2 4323-8 ####[facility] LABCLIA [id number] [place] [address] [place] Sodium [Moles/Vol] 139 mmol/L Normal 136-144 [facility] Comment on above: Order Comment: Speci men Type: BLOOD SPECIMENOrdering Facility: [facility] Address: [address] [place] [address] Performed By: #### 2 4323-8 ####[facility] LABIA [id number] [place] [address] [place] Urea nitrogen [Mass/Vol] 20 mg/dL Normal 7-21 [facility] Comment on above: Order Comment: Speci men Type: BLOOD SPECIMENOrdering Facility: [facility] Address: [address] [place] [address] Performed By: #### 2 4323-8 ####[facility] [id number] [place] [address] [place] ESR Westergren method (Bld) [Velocity]on 03-23-2024 ESR (Bld) [Velocity] 27 mm/h High 0-20 [facility] Comment on above: Order Comment: Speci men Type: BLOOD SPECIMENOrdering Facility: [facility] Address: [address] [place] [address] Performed By: #### 4 537-7 ####[facility] LABIA [id number] [place] [address] [place] Ferritin SerPl-mCncon 2023 Ferritin [Mass/Vol] 33.3 ng/mL Normal 14.7-205.1 [facility] Comment on above: Order Comment: Speci men Type: BLOOD SPECIMENOrdering Facility: [facility] Address: [address] [place] [address] Performed By: #### 1 988-5, 02735-1, 2276-4 ####[facility] LABIA [id number] [place] [address] [place] Folate SerPl-mCncon 03-23-20 24 Folate [Mass/Vol] 13.0 ng/mL Normal >4.7 [facility] Comment on above: Order Comment: Speci men Type: BLOOD SPECIMENOrdering Facility: [facility] Address: [address] [place] [address] Performed By: #### 2 132-9, 2284-8 ####[facility] LABCLIA [id number] [place] [address] [place] HCG ( test) Ql (U)o n 03-23-2024 Interpretation and review of laboratory results Normal [facility] Preg Test, Ur Negative Negative [facility] IMMUNOGLOBULINS,IGG,IGA,IGMo n 03-23-2024 IgA [Mass/Vol] 171 mg/dL Normal 70-400 [facility] Comment on above: Order Comment: Speci men Type: BLOOD SPECIMENOrdering Facility: [facility] Address: [address] [place] [address] Performed By: #### S ERIMM ####[facility] LABCLIA [id number] [place] [address] [place] IgG [Mass/Vol] 476 mg/dL Low 700-1600 [facility] Comment on above: Order Comment: Speci men Type: BLOOD SPECIMENOrdering Facility: [facility] Address: [address] [place] [address] Performed By: #### S ERIMM ####[facility] LABCLIA [id number] [place] [address] [place] IgM [Mass/Vol] 373 mg/dL High 40-230 [facility] Comment on above: Order Comment: Speci men Type: BLOOD SPECIMENOrdering Facility: [facility] Address: [address] [place] [address] Performed By: #### S ERIMM ####[facility] LABCLIA [id number] [place] [address] [place] Iron and Iron binding capaci ty panelon 03-23-2024 Iron [Mass/Vol] 67 ug/dL Normal 41-186 [facility] Comment on above: Order Comment: Speci men Type: BLOOD SPECIMENOrdering Facility: [facility] Address: [address] [place] [address] Performed By: #### 1 988-5, 28785-1, 6-4 ####[facility] LABCLIA [id number] [place] [id number] [place] Iron binding capacity [Mass/Vol] 399 ug/dL High 232-386 [facility] Comment on above: Order Comment: Speci men Type: BLOOD SPECIMENOrdering Facility: [facility] Address: [address] [place] [address] Performed By: #### 1 988-5, 23768-1, 2275-4 ####[facility] LABCLIA [id number] [place] [address] [place] Iron/TIBC [Molar ratio] 16.8 % Normal 15.0-57.0 [facility] Comment on above: Order Comment: Speci men Type: BLOOD SPECIMENOrdering Facility: [facility] Address: [address] [place] [address] Performed By: #### 1 988-5, 27754-9, 2275-4 ####[facility] LABCLIA [id number] [place] [address] [place] Urinalysis macro (dipstick) panel (U)on 03-23-2024 Bilirubin, UA Negative Negative - 4(70) +++ mg/dL [facility] Blood, UA Positive Negative - 50 Dusty/mcL [facility] Comment on above: large Clarity, UA Cloudy [facility] Color, UA Dark Georgie [facility] Glucose, UA Positive Negative - 2000(110) ++++ mg/dL [facility] Comment on above: 100 mg Interpretation and review of laboratory results Abnormal [facility] Ketones, UA Negative Negative - 160(16) ++++ mg/dL [facility] Leukocytes, UA Positive Negative - 500+++ Andi/mcL [facility] Comment on above: small Nitrite, UA Negative Negative - Positive [facility] pH, UA 5.5 5 - [address] [facility] Protein, UA Positive Negative - 1999(20) ++++ mg/dL [facility] Comment on above: 30 mg Spec Grav, UA 1.03 1 - 1.[address] [facility] Urobilinogen, UA 0.2 0.2 - 12 mg/dL [facility] Cobalamin (Vitamin B12) [Mass/Vol] 607 pg/mL Normal 232-1245 [facility] Comment on above: Order Comment: Speci men Type: BLOOD SPECIMENOrdering Facility: [facility] Address: [address] [place] [address] Performed By: #### 2 132-9, 2284-8 ####[facility] LABCLIA [id number] [facility] [id number] [address] [facility] Office Visiton 03-08-2024 Follow-up visit [id number] Jones Haley 1980 F Date Provider Department Center 03/08/2024 [facility] Family History Problem Relation Age of Onset Heart failure Maternal Grandmother Heart attack Maternal Grandfather Family Status - Relation Status Age at Maternal Grandmother Maternal Grandfather Level of Service:17490 DC OFFICE/OUTPATIENT NEW MODERATE MDM 45 MINUTES Normal [facility] CNPNon 02-22-2024 CNPN Normal [facility] CBC W Auto Differential pane l (Bld)on 02-21-2024 Basophils (Bld) [#/Vol] 0.03 10*3/uL Normal <0.11 [facility] Comment on above: Order Comment: Speci men Type: BLOOD SPECIMENOrdering Facility: [facility] Address: [address] [place] [address] Performed By: #### 5 7021-8 ####[facility] LABCLIA [id number] [place] [address] Basophils/100 WBC (Bld) 0.2 % Normal [facility] Comment on above: Order Comment: Speci men Type: BLOOD SPECIMENOrdering Facility: [facility] Address: [address] [place] [address] Performed By: #### 5 7021-8 ####[facility] LABCLIA [id number] [place] [address] Differential cell count method Nom (Bld) Auto Normal [facility] Comment on above: Order Comment: Speci men Type: BLOOD SPECIMENOrdering Facility: [facility] Address: [address] [place] [address] Performed By: #### 5 7021-8 ####[facility] LABCLIA [id number] [place] [address] Eosinophils (Bld) [#/Vol] 0.03 10*3/uL Normal <0.46 [facility] Comment on above: Order Comment: Speci men Type: BLOOD SPECIMENOrdering Facility: [facility] Address: [address] [place] [address] Performed By: #### 5 7021-8 ####[facility] LABCLIA [id number] [place] [address] Eosinophils/100 WBC (Bld) 0.2 % Normal [facility] Comment on above: Order Comment: Speci men Type: BLOOD SPECIMENOrdering Facility: [facility] Address: [address] [place] [address] Performed By: #### 5 7021-8 ####[facility] LABCLIA [id number] [place] [address] Erythrocyte distribution width (RBC) [Ratio] 15.1 % High 11.5-15.0 [facility] Comment on above: Order Comment: Speci men Type: BLOOD SPECIMENOrdering Facility: [facility] Address: [address] [place] [address] Performed By: #### 5 7021-8 ####[facility] LABCLIA [id number] [place] [address] Hematocrit (Bld) [Volume fraction] 41.2 % Normal 36.0-46.0 [facility] Comment on above: Order Comment: Speci men Type: BLOOD SPECIMENOrdering Facility: [facility] Address: [address] [place] [address] Performed By: #### 5 7021-8 ####[facility] LABCLIA [id number] [place] [address] Hemoglobin (Bld) [Mass/Vol] 13.8 g/dL Normal 11.5-15.5 [facility] Comment on above: Order Comment: Speci men Type: BLOOD SPECIMENOrdering Facility: [facility] Address: [address] [place] [address] Performed By: #### 5 7021-8 ####[facility] LABCLIA [id number] [place] [address] Immature granulocytes (Bld) [#/Vol] 0.15 10*3/uL High <0.10 [facility] Comment on above: Order Comment: Speci men Type: BLOOD SPECIMENOrdering Facility: [facility] Address: [address] [place] [address] Performed By: #### 5 7021-8 ####[facility] LABCLIA [id number] [place] [address] Immature granulocytes/100 WBC (Bld) 0.9 % Normal [facility] Comment on above: Order Comment: Speci men Type: BLOOD SPECIMENOrdering Facility: [facility] Address: [address] [place] [address] Performed By: #### 5 7021-8 ####[facility] LABCLIA [id number] [place] [address] Lymphocytes (Bld) [#/Vol] 1.62 10*3/uL Normal 1.00-4.00 [facility] Comment on above: Order Comment: Speci men Type: BLOOD SPECIMENOrdering Facility: [facility] Address: [address] [place] [address] Performed By: #### 5 7021-8 ####[facility] LABCLIA [id number] [place] [address] Lymphocytes/100 WBC (Bld) 9.8 % Normal [facility] Comment on above: Order Comment: Speci men Type: BLOOD SPECIMENOrdering Facility: [facility] Address: [address] [place] [address] Performed By: #### 5 7021-8 ####[facility] LABCLIA [id number] [place] [address] MCH (RBC) [Entitic mass] 30.5 pg Normal 26.0-34.0 [facility] Comment on above: Order Comment: Speci men Type: BLOOD SPECIMENOrdering Facility: [facility] Address: [address] [place] [address] Performed By: #### 5 7021-8 ####[facility] LABCLIA [id number] [place] [address] MCHC (RBC) [Mass/Vol] 33.5 g/dL Normal 30.5-36.0 [facility] Comment on above: Order Comment: Speci men Type: BLOOD SPECIMENOrdering Facility: [facility] Address: [address] [place] [address] Performed By: #### 5 7021-8 ####[facility] LABCLIA [id number] [place] [address] MCV (RBC) [Entitic vol] 91.2 fL Normal 80.0-100.0 [facility] Comment on above: Order Comment: Speci men Type: BLOOD SPECIMENOrdering Facility: [facility] Address: [address] [place] [address] Performed By: #### 5 7021-8 ####[facility] LABCLIA [id number] [place] [address] Monocytes (Bld) [#/Vol] 0.76 10*3/uL Normal <0.87 [facility] Comment on above: Order Comment: Speci men Type: BLOOD SPECIMENOrdering Facility: [facility] Address: [address] [place] [address] Performed By: #### 5 7021-8 ####[facility] LABCLIA [id number] [place] [address] Monocytes/100 WBC (Bld) 4.6 % Normal [facility] Comment on above: Order Comment: Speci men Type: BLOOD SPECIMENOrdering Facility: [facility] Address: [address] [place] [address] Performed By: #### 5 7021-8 ####[facility] LABCLIA [id number] [place] [address] Neutrophils (Bld) [#/Vol] 13.99 10*3/uL High 1.45-7.50 [facility] Comment on above: Order Comment: Speci men Type: BLOOD SPECIMENOrdering Facility: [facility] Address: [address] [place] [address] Performed By: #### 5 7021-8 ####[facility] LABCLIA [id number] [place] [address] Neutrophils/100 WBC (Bld) 84.3 % Normal [facility] Comment on above: Order Comment: Speci men Type: BLOOD SPECIMENOrdering Facility: [facility] Address: [address] [place] [address] Performed By: #### 5 7021-8 ####[facility] LABCLIA [id number] [place] [address] Nucleated RBC (Bld) [#/Vol] 10*3/uL Normal <0.01 [facility] Comment on above: Order Comment: Speci men Type: BLOOD SPECIMENOrdering Facility: [facility] Address: [address] [place] [address] Performed By: #### 5 7021-8 ####[facility] LABCLIA [id number] [place] [address] Nucleated RBC/100 WBC (Bld) [Ratio] 0.0 /100 WBC Normal [facility] Comment on above: Order Comment: Speci men Type: BLOOD SPECIMENOrdering Facility: [facility] Address: [address] [place] [address] Performed By: #### 5 7021-8 ####[facility] LABCLIA [id number] [place] [address] Platelet mean volume (Bld) [Entitic vol] 9.9 fL Normal 9.0-12.7 [facility] Comment on above: Order Comment: Speci men Type: BLOOD SPECIMENOrdering Facility: [facility] Address: [address] [place] [address] Performed By: #### 5 7021-8 ####[facility] LABCLIA [id number] [place] [address] Platelets (Bld) [#/Vol] 332 10*3/uL Normal 150-400 [facility] Comment on above: Order Comment: Speci men Type: BLOOD SPECIMENOrdering Facility: [facility] Address: [address] [place] [address] Performed By: #### 5 7021-8 ####[facility] LABCLIA [id number] [place] [address] RBC (Bld) [#/Vol] 4.52 10*6/uL Normal 3.90-5.20 [facility] Comment on above: Order Comment: Speci men Type: BLOOD SPECIMENOrdering Facility: [facility] Address: [address] [place] [address] Performed By: #### 5 7021-8 ####[facility] LABCLIA [id number] [place] [address] WBC (Bld) [#/Vol] 16.58 10*3/uL High 3.70-11.00 [facility] Comment on above: Order Comment: Speci men Type: BLOOD SPECIMENOrdering Facility: [facility] Address: [address] [id number] Performed By: #### 5 7021-8 ####[facility] LABCLIA [id number] [place] [address] CNNURSEon 02-21-2024 CNNURSE Normal [facility] metabolic 2000 panelon 02-21-2024 Albumin [Mass/Vol] 4.3 g/dL Normal 3.9-4.9 [facility] Comment on above: Order Comment: Speci men Type: BLOOD SPECIMENOrdering Facility: [facility] Address: [address] [place] [address] Performed By: #### 2 4323-8 ####[facility] LABCLIA [id number] [place] [address] ALP [Catalytic activity/Vol] 72 U/L Normal 34-123 [facility] Comment on above: Order Comment: Speci men Type: BLOOD SPECIMENOrdering Facility: [facility] Address: [address] [place] [address] Performed By: #### 2 4323-8 ####[facility] LABIA [id number] [place] [address] ALT [Catalytic activity/Vol] 22 U/L Normal 7-38 [facility] Comment on above: Order Comment: Speci men Type: BLOOD SPECIMENOrdering Facility: [facility] Address: [address] [place] [address] Performed By: #### 2 4323-8 ####[facility] LABCLIA [id number] [place] [address] Anion gap [Moles/Vol] 13 mmol/L Normal 8-15 [facility] Comment on above: Order Comment: Speci men Type: BLOOD SPECIMENOrdering Facility: [facility] Address: [address] [place] [address] Performed By: #### 2 4323-8 ####[facility] LABCLIA [id number] [place] [address] AST [Catalytic activity/Vol] 9 U/L Low 13-35 [facility] Comment on above: Order Comment: Speci men Type: BLOOD SPECIMENOrdering Facility: [facility] Address: [address] [place] [address] Performed By: #### 2 4323-8 ####[facility] LABCLIA [id number] [place] [address] Bilirubin [Mass/Vol] 0.2 mg/dL Normal 0.2-1.3 [facility] Comment on above: Order Comment: Speci men Type: BLOOD SPECIMENOrdering Facility: [facility] Address: [address] [place] [address] Performed By: #### 2 4323-8 ####[facility] LABCLIA [id number] [place] [address] Calcium [Mass/Vol] 9.5 mg/dL Normal 8.5-10.2 [facility] Comment on above: Order Comment: Speci men Type: BLOOD SPECIMENOrdering Facility: [facility] Address: [address] [place] [address] Performed By: #### 2 4323-8 ####[facility] LABCLIA [id number] [place] [address] Chloride [Moles/Vol] 107 mmol/L Normal 98-107 [facility] Comment on above: Order Comment: Speci men Type: BLOOD SPECIMENOrdering Facility: [facility] Address: [address] [place] [address] Performed By: #### 2 4323-8 ####[facility] LABCLIA [id number] [place] [address] CO2 [Moles/Vol] 20 mmol/L Low 22-30 [facility] Comment on above: Order Comment: Speci men Type: BLOOD SPECIMENOrdering Facility: [facility] Address: [address] [place] [address] Performed By: #### 2 4323-8 ####[facility] LABCLIA [id number] [place] [address] Creatinine [Mass/Vol] 0.65 mg/dL Normal 0.58-0.96 [facility] Comment on above: Order Comment: Speci men Type: BLOOD SPECIMENOrdering Facility: [facility] Address: [address] [place] [address] Performed By: #### 2 4323-8 ####[facility] LABCLIA [id number] [place] [address] Creatinine and Glomerular filtration rate.predicted panel (S/P/Bld) 112 mL/min/1.73m??? Normal >=60 [facility] Comment on above: Order Comment: Speci men Type: BLOOD SPECIMENOrdering Facility: [facility] Address: [address] [place] [address] Result Comment: Erin mated Glomerular Filtration Rate [...] 4323-8 ####[facility] LABCLIA [id number] [place] [address] Glucose [Mass/Vol] 215 mg/dL High 74-99 [facility] Comment on above: Order Comment: Speci men Type: BLOOD SPECIMENOrdering Facility: [facility] Address: [address] [place] [address] Result Comment: The [place] [employer] (ADA) provides guidance for cutoff [...] Standards of Medical Care in Diabetes 2016, [place] [employer]. Diabetes Care. 2016.39(Suppl 1). Performed By: #### 2 4323-8 ####[facility] LABCLIA [id number] [place] [address] Potassium [Moles/Vol] 4.2 mmol/L Normal 3.7-5.1 [facility] Comment on above: Order Comment: Speci men Type: BLOOD SPECIMENOrdering Facility: [facility] Address: [address] [place] [address] Performed By: #### 2 4323-8 ####[facility] LABCLIA [id number] [place] [address] Protein [Mass/Vol] 7.2 g/dL Normal 6.3-8.0 [facility] Comment on above: Order Comment: Speci men Type: BLOOD SPECIMENOrdering Facility: [facility] Address: [address] [place] [address] Performed By: #### 2 4323-8 ####[facility] LABCLIA [id number] [place] [address] Sodium [Moles/Vol] 140 mmol/L Normal 136-144 [facility] Comment on above: Order Comment: Speci men Type: BLOOD SPECIMENOrdering Facility: [facility] Address: [address] [place] [address] Performed By: #### 2 4323-8 ####[facility] LABCLIA [id number] [place] [address] Urea nitrogen [Mass/Vol] 15 mg/dL Normal 7-21 [facility] Comment on above: Order Comment: Speci men Type: BLOOD SPECIMENOrdering Facility: [facility] Address: [address] [place] [address] Performed By: #### 2 4323-8 ####[facility] LABCLIA [id number] [place] [address] ESR Westergren method (Bld) [Velocity]on 02-21-2024 ESR (Bld) [Velocity] 33 mm/h High 0-20 [facility] Comment on above: Order Comment: Speci men Type: BLOOD SPECIMENOrdering Facility: [facility] Address: [address] [place] [address] Performed By: #### 4 537-7 ####[facility] LABCLIA [id number] [place] [address] [place] Ferritin SerPl-[facility] Foundationon 2023 Ferritin [Mass/Vol] 36.3 ng/mL Normal 14.7-205.1 [facility] Comment on above: Order Comment: Speci men Type: BLOOD SPECIMENOrdering Facility: [facility] Address: [address] [place] [address] Performed By: #### 5 0190-8, 2276-4, 2131-9, 4-8 ####[facility] LABIA [id number] [place] [address] [place] Folate SerPl-mCncon 02-21-20 24 Folate [Mass/Vol] 18.8 ng/mL Normal >4.7 [facility] Comment on above: Order Comment: Speci men Type: BLOOD SPECIMENOrdering Facility: [facility] Address: [address] [place] [address] Performed By: #### 5 0190-8, 2276-4, 213-9, 4-8 ####[facility] LABIA [id number] [place] [address] [place] Iron and Iron binding capaci ty panelon 02-21-2024 Iron [Mass/Vol] 74 ug/dL Normal 41-186 [facility] Comment on above: Order Comment: Speci men Type: BLOOD SPECIMENOrdering Facility: [facility] Address: [address] [place], [place] [address] Performed By: #### 5 0190-8, 2275-, 2132-01, 2283-12 ####[facility] LABCLIA [id number] [address] [address] [place] Iron binding capacity [Mass/Vol] 422 ug/dL High 232-386 [facility] Comment on above: Order Comment: Speci men Type: BLOOD SPECIMENOrdering Facility: [facility] Address: [address] [place], [place] [address] Performed By: #### 5 0190-8, 2275-08, 2132-01, 2283-12 ####[facility] LABIA [id number] [address] [address] [place] Iron/TIBC [Molar ratio] 17.5 % Normal 15.0-57.0 [facility] Comment on above: Order Comment: Speci men Type: BLOOD SPECIMENOrdering Facility: [facility] Address: [address] [place] [address] Performed By: #### 5 0190-8, 2275-08, 2132-01, 2283-12 ####[facility] LABIA [id number] [address] [address] [place] Vit B12 [facility] 02-20-2 024 Cobalamin (Vitamin B12) [Mass/Vol] 560 pg/mL Normal 232-1245 [facility] Comment on above: Order Comment: Speci men Type: BLOOD SPECIMENOrdering Facility: [facility] Address: [address] [place], [place] [address] Performed By: #### 5 0190-8, 2275-08, 2132-01, 2283-12 ####[facility] LABIA [id number] [address] [address] [place] CNPNon 02-18-2024 CNPN Normal [facility] HCG ( test) IA.rapi d Ql (U)Ordered By: Adolfo Kang on 02-16-2024 HCG ( test) Ql (U) Negative [facility] HCG,Urineon 02-16-2024 Beta HCG ( test) Ql (U) Negative Normal [facility] Comment on above: Result Comment: PERF ORMED BY: [facility] [address] [place] [address] PATHOLOGIST AMALGAMATOR OFE CANNON M.D. Performed By: #### U HCG #### [facility] [address] [id number] [place] CNPNon 02-15-2024 CNPN Normal [facility] CNNURSEon 01-25-2024 CNNURSE Normal [facility] CNPNon 12-30-2023 CNPN Normal [facility] 25([place])D3 SerPl-mCncon 2023 25-hydroxyvitamin D3 [Mass/Vol] 31.0 ng/mL Normal 31.0-80.0 [facility] Comment on above: Order Comment: Speci men Type: BLOOD SPECIMENOrdering Facility: [facility] Address: [address] [place] [address] Result Comment: Clas sification of 25 [place] Vitamin D status:Deficiency/Insufficiency: < or = 30 ng/ml.Sufficiency/Optimal Levels: 31-80 ng/mLToxicity: > 100 ng/mL.Test performed by chemiluminescent immunoassay. Performed By: #### 1 989-3 ####[facility] LABCLIA [id number] [place] [address] [place] CBC panel Auto (Bld)on 12-26 Erythrocyte distribution width (RBC) [Ratio] 14.6 % Normal 11.5-15.0 [facility] Comment on above: Order Comment: Speci men Type: BLOOD SPECIMENOrdering Facility: [facility] Address: [facility] [place] [address] Performed By: #### 5 8410-2 ####[facility] LABCLIA [id number] [place] [address] Hematocrit (Bld) [Volume fraction] 39.6 % Normal 36.0-46.0 [facility] Comment on above: Order Comment: Speci men Type: BLOOD SPECIMENOrdering Facility: [facility] Address: [address] [place] [address] Performed By: #### 5 8410-2 ####[facility] LABCLIA [id number] [place] [address] Hemoglobin (Bld) [Mass/Vol] 13.0 g/dL Normal 11.5-15.5 [facility] Comment on above: Order Comment: Speci men Type: BLOOD SPECIMENOrdering Facility: [facility] Address: [address] [place] [address] Performed By: #### 5 8410-2 ####[facility] LABCLIA [id number] [place] [address] MCH (RBC) [Entitic mass] 30.3 pg Normal 26.0-34.0 [facility] Comment on above: Order Comment: Speci men Type: BLOOD SPECIMENOrdering Facility: [facility] Address: [address] [place] [address] Performed By: #### 5 8410-2 ####[facility] LABCLIA [id number] [place] [address] MCHC (RBC) [Mass/Vol] 32.8 g/dL Normal 30.5-36.0 [facility] Comment on above: Order Comment: Speci men Type: BLOOD SPECIMENOrdering Facility: [facility] Address: [address] [place] [address] Performed By: #### 5 8410-2 ####[facility] LABIA [id number] [place] [address] MCV (RBC) [Entitic vol] 92.3 fL Normal 80.0-100.0 [facility] Comment on above: Order Comment: Speci men Type: BLOOD SPECIMENOrdering Facility: [facility] Address: [address] [place] [address] Performed By: #### 5 8410-2 ####[facility] LABCLIA [id number] [place] [address] Nucleated RBC (Bld) [#/Vol] 10*3/uL Normal <0.01 [facility] Comment on above: Order Comment: Speci men Type: BLOOD SPECIMENOrdering Facility: [facility] Address: [address] [place] [address] Performed By: #### 5 8410-2 ####[facility] LABCLIA [id number] [place] [address] Platelet mean volume (Bld) [Entitic vol] 9.8 fL Normal 9.0-12.7 [facility] Comment on above: Order Comment: Speci men Type: BLOOD SPECIMENOrdering Facility: [facility] Address: [address] [place] [address] Performed By: #### 5 8410-2 ####[facility] LABCLIA [id number] [place] [address] Platelets (Bld) [#/Vol] 309 10*3/uL Normal 150-400 [facility] Comment on above: Order Comment: Speci men Type: BLOOD SPECIMENOrdering Facility: [facility] Address: [address] [place] [address] Performed By: #### 5 8410-2 ####[facility] LABCLIA [id number] [place] [address] RBC (Bld) [#/Vol] 4.29 10*6/uL Normal 3.90-5.20 [facility] Comment on above: Order Comment: Speci men Type: BLOOD SPECIMENOrdering Facility: [facility] Address: [address] [place] [address] Performed By: #### 5 8410-2 ####[facility] LABCLIA [id number] [place] [address] WBC (Bld) [#/Vol] 14.93 10*3/uL High 3.70-11.00 [facility] Comment on above: Order Comment: Speci men Type: BLOOD SPECIMENOrdering Facility: [facility] Address: [address] [place] [address] Performed By: #### 5 8410-2 ####[facility] LABCLIA [id number] [place] [address] CNNURSEon 12-27-2023 CNNURSE Normal [facility] CNOVSPon 12-27-2023 CNOVSP Normal [facility] CNPNon 12-27-2023 CNPN Normal [facility] CRP SerPl-mCncon 12-27-2023 CRP [Mass/Vol] mg/L Normal <0.9 [facility] Comment on above: Order Comment: Speci men Type: BLOOD SPECIMENOrdering Facility: [facility] Address: [address] [place] [address] Performed By: #### 1 988-5 ####[facility] LABCLIA [id number] [address] OF [facility] Comprehensive metabolic 2000 panelon 12-27-2023 Albumin [Mass/Vol] 4.2 g/dL Normal 3.9-4.9 [facility] Comment on above: Order Comment: Speci men Type: BLOOD SPECIMENOrdering Facility: [facility] Address: [address] [place] [address] Performed By: #### 2 4323-8 ####[facility] LABCLIA [id number] [place] [address] ALP [Catalytic activity/Vol] 77 U/L Normal 34-123 [facility] Comment on above: Order Comment: Speci men Type: BLOOD SPECIMENOrdering Facility: [facility] Address: [address] [place] [address] Performed By: #### 2 4323-8 ####[facility] LABCLIA [id number] [place] [address] ALT [Catalytic activity/Vol] 23 U/L Normal 7-38 [facility] Comment on above: Order Comment: Speci men Type: BLOOD SPECIMENOrdering Facility: [facility] Address: [address] [place] [address] Performed By: #### 2 4323-8 ####[facility] LABCLIA [id number] [place] [address] Anion gap [Moles/Vol] 14 mmol/L Normal 8-15 [facility] Comment on above: Order Comment: Speci men Type: BLOOD SPECIMENOrdering Facility: [facility] Address: [address] [place], [place] [address] Performed By: #### 2 4323-8 ####[facility] LABCLIA [id number] [place] [address] AST [Catalytic activity/Vol] 13 U/L Normal 13-35 [facility] Comment on above: Order Comment: Speci men Type: BLOOD SPECIMENOrdering Facility: [facility] Address: [address] [place] [address] Performed By: #### 2 4323-8 ####[facility] LABCLIA [id number] [place] [address] Bilirubin [Mass/Vol] mg/dL Low 0.2-1.3 [facility] Comment on above: Order Comment: Speci men Type: BLOOD SPECIMENOrdering Facility: [facility] Address: [address] [place] [address] Performed By: #### 2 4323-8 ####[facility] LABCLIA [id number] [place] [address] Calcium [Mass/Vol] 10.0 mg/dL Normal 8.5-10.2 [facility] Comment on above: Order Comment: Speci men Type: BLOOD SPECIMENOrdering Facility: [facility] Address: [address] [place] [address] Performed By: #### 2 4323-8 ####[facility] LABCLIA [id number] [place] [address] Chloride [Moles/Vol] 107 mmol/L Normal 98-107 [facility] Comment on above: Order Comment: Speci men Type: BLOOD SPECIMENOrdering Facility: [facility] Address: [address] [place] [address] Performed By: #### 2 4323-8 ####[facility] LABCLIA [id number] [place] [address] CO2 [Moles/Vol] 23 mmol/L Normal 22-30 [facility] Comment on above: Order Comment: Speci men Type: BLOOD SPECIMENOrdering Facility: [facility] Address: [address] [place] [address] Performed By: #### 2 4323-8 ####[facility] LABCLIA [id number] [place] [address] Creatinine [Mass/Vol] 0.70 mg/dL Normal 0.58-0.96 [facility] Comment on above: Order Comment: Speci men Type: BLOOD SPECIMENOrdering Facility: [facility] Address: [address] [place] [address] Performed By: #### 2 4323-8 ####[facility] LABCLIA [id number] [place] [address] Creatinine and Glomerular filtration rate.predicted panel (S/P/Bld) 110 mL/min/1.73m??? Normal >=60 [facility] Comment on above: Order Comment: Speci men Type: BLOOD SPECIMENOrdering Facility: [facility] Address: [address] [place], [place] [address] Result Comment: Erin mated Glomerular Filtration Rate [...] 4323-8 ####[facility] LABCLIA [id number] [place] [address] Glucose [Mass/Vol] 120 mg/dL High 74-99 [facility] Comment on above: Order Comment: Speci men Type: BLOOD SPECIMENOrdering Facility: [facility] Address: [address] [place] [address] Result Comment: The [place] [employer] (ADA) provides guidance for cutoff [...] Standards of Medical Care in Diabetes 2016, [place] [employer]. Diabetes Care. 2016.39(Suppl 1). Performed By: #### 2 4323-8 ####[facility] LABCLIA [id number] [place] [address] Potassium [Moles/Vol] 4.1 mmol/L Normal 3.7-5.1 [facility] Comment on above: Order Comment: Speci men Type: BLOOD SPECIMENOrdering Facility: [facility] Address: [address] [place] [address] Performed By: #### 2 4323-8 ####[facility] LABCLIA [id number] [place] [address] Protein [Mass/Vol] 7.1 g/dL Normal 6.3-8.0 [facility] Comment on above: Order Comment: Speci men Type: BLOOD SPECIMENOrdering Facility: [facility] Address: [address] [place], [place] [address] Performed By: #### 2 4323-8 ####[facility] LABCLIA [id number] [place] [address] Sodium [Moles/Vol] 144 mmol/L Normal 136-144 [facility] Comment on above: Order Comment: Speci men Type: BLOOD SPECIMENOrdering Facility: [facility] Address: [address] [place] [address] Performed By: #### 2 4323-8 ####[facility] LABCLIA [id number] [place] [address] Urea nitrogen [Mass/Vol] 13 mg/dL Normal 7-21 [facility] Comment on above: Order Comment: Speci men Type: BLOOD SPECIMENOrdering Facility: [facility] Address: [address] [place] [address] Performed By: #### 2 4323-8 ####[facility] LABCLIA [id number] [place] [address] ESR Westergren method (Bld) [Velocity]on 12-27-2023 ESR (Bld) [Velocity] 31 mm/h High 0-20 [facility] Comment on above: Order Comment: Speci men Type: BLOOD SPECIMENOrdering Facility: [facility] Address: [address] [place] [address] Performed By: #### 4 537-7 ####[facility] LABCLIA [id number] [place] [address] [place] MR LUMBAR SPINE WO CONTRASTo n 12-21-2023 [...] DO Normal Not Available CNNURSEon 11-29-2023 CNNURSE Normal [facility] CBC W Auto Differential pane l (Bld)on 11-24-2023 Basophils (Bld) [#/Vol] 0.06 10*3/uL Normal <0.11 [facility] Comment on above: Order Comment: Speci men Type: BLOOD SPECIMENOrdering Facility: [facility] Address: [address] [place] [address] Performed By: #### 5 7021-8 ####[facility] LABCLIA [id number] [place] [address] Basophils/100 WBC (Bld) 0.6 % Normal [facility] Comment on above: Order Comment: Speci men Type: BLOOD SPECIMENOrdering Facility: [facility] Address: [address] [place] [address] Performed By: #### 5 7021-8 ####[facility] LABCLIA [id number] [place] [address] Differential cell count method Nom (Bld) Auto Normal [facility] Comment on above: Order Comment: Speci men Type: BLOOD SPECIMENOrdering Facility: [facility] Address: [address] [place] [address] Performed By: #### 5 7021-8 ####[facility] LABCLIA [id number] [place] [address] Eosinophils (Bld) [#/Vol] 0.04 10*3/uL Normal <0.46 [facility] Comment on above: Order Comment: Speci men Type: BLOOD SPECIMENOrdering Facility: [facility] Address: [address] [place] [address] Performed By: #### 5 7021-8 ####[facility] LABCLIA [id number] [place] [address] Eosinophils/100 WBC (Bld) 0.4 % Normal [facility] Comment on above: Order Comment: Speci men Type: BLOOD SPECIMENOrdering Facility: [facility] Address: [address] [place] [address] Performed By: #### 5 7021-8 ####[facility] LABCLIA [id number] [place] [address] Erythrocyte distribution width (RBC) [Ratio] 14.8 % Normal 11.5-15.0 [facility] Comment on above: Order Comment: Speci men Type: BLOOD SPECIMENOrdering Facility: [facility] Address: [address] [place] [address] Performed By: #### 5 7021-8 ####[facility] LABCLIA [id number] [place] [address] Hematocrit (Bld) [Volume fraction] 40.6 % Normal 36.0-46.0 [facility] Comment on above: Order Comment: Speci men Type: BLOOD SPECIMENOrdering Facility: [facility] Address: [address] [place] [address] Performed By: #### 5 7021-8 ####[facility] LABCLIA [id number] [place] [address] Hemoglobin (Bld) [Mass/Vol] 13.0 g/dL Normal 11.5-15.5 [facility] Comment on above: Order Comment: Speci men Type: BLOOD SPECIMENOrdering Facility: [facility] Address: [address] [place] [address] Performed By: #### 5 7021-8 ####[facility] LABCLIA [id number] [place] [address] Immature granulocytes (Bld) [#/Vol] 0.05 10*3/uL Normal <0.10 [facility] Comment on above: Order Comment: Speci men Type: BLOOD SPECIMENOrdering Facility: [facility] Address: [address] [place] [address] Performed By: #### 5 7021-8 ####[facility] LABCLIA [id number] [place] [address] Immature granulocytes/100 WBC (Bld) 0.5 % Normal [facility] Comment on above: Order Comment: Speci men Type: BLOOD SPECIMENOrdering Facility: [facility] Address: [address] [place] [address] Performed By: #### 5 7021-8 ####[facility] LABIA [id number] [place] [address] Lymphocytes (Bld) [#/Vol] 1.87 10*3/uL Normal 1.00-4.00 [facility] Comment on above: Order Comment: Speci men Type: BLOOD SPECIMENOrdering Facility: [facility] Address: [address] [place] [address] Performed By: #### 5 7021-8 ####[facility] LABCLIA [id number] [place] [address] Lymphocytes/100 WBC (Bld) 17.5 % Normal [facility] Comment on above: Order Comment: Speci men Type: BLOOD SPECIMENOrdering Facility: [facility] Address: [address] [place] [address] Performed By: #### 5 7021-8 ####[facility] LABIA [id number] [place] [address] MCH (RBC) [Entitic mass] 29.3 pg Normal 26.0-34.0 [facility] Comment on above: Order Comment: Speci men Type: BLOOD SPECIMENOrdering Facility: [facility] Address: [address] [place] [address] Performed By: #### 5 7021-8 ####[facility] LABCLIA [id number] [place] [address] MCHC (RBC) [Mass/Vol] 32.0 g/dL Normal 30.5-36.0 [facility] Comment on above: Order Comment: Speci men Type: BLOOD SPECIMENOrdering Facility: [facility] Address: [address] [place] [address] Performed By: #### 5 7021-8 ####[facility] LABCLIA [id number] [place] [address] MCV (RBC) [Entitic vol] 91.4 fL Normal 80.0-100.0 [facility] Comment on above: Order Comment: Speci men Type: BLOOD SPECIMENOrdering Facility: [facility] Address: [address] [place] [address] Performed By: #### 5 7021-8 ####[facility] LABCLIA [id number] [place] [address] Monocytes (Bld) [#/Vol] 0.39 10*3/uL Normal <0.87 [facility] Comment on above: Order Comment: Speci men Type: BLOOD SPECIMENOrdering Facility: [facility] Address: [address] [place] [address] Performed By: #### 5 7021-8 ####[facility] LABCLIA [id number] [place] [address] Monocytes/100 WBC (Bld) 3.6 % Normal [facility] Comment on above: Order Comment: Speci men Type: BLOOD SPECIMENOrdering Facility: [facility] Address: [address] [place] [address] Performed By: #### 5 7021-8 ####[facility] LABCLIA [id number] [place] [address] Neutrophils (Bld) [#/Vol] 8.28 10*3/uL High 1.45-7.50 [facility] Comment on above: Order Comment: Speci men Type: BLOOD SPECIMENOrdering Facility: [facility] Address: [address] [place] [address] Performed By: #### 5 7021-8 ####[facility] LABCLIA [id number] [place] [address] Neutrophils/100 WBC (Bld) 77.4 % Normal [facility] Comment on above: Order Comment: Speci men Type: BLOOD SPECIMENOrdering Facility: [facility] Address: [address] [place] [address] Performed By: #### 5 7021-8 ####[facility] LABCLIA [id number] [place] [address] Nucleated RBC (Bld) [#/Vol] 10*3/uL Normal <0.01 [facility] Comment on above: Order Comment: Speci men Type: BLOOD SPECIMENOrdering Facility: [facility] Address: [address] [place] [address] Performed By: #### 5 7021-8 ####[facility] LABCLIA [id number] [place] [address] Nucleated RBC/100 WBC (Bld) [Ratio] 0.0 /100 WBC Normal [facility] Comment on above: Order Comment: Speci men Type: BLOOD SPECIMENOrdering Facility: [facility] Address: [address] [place] [address] Performed By: #### 5 7021-8 ####[facility] LABCLIA [id number] [place] [address] Platelet mean volume (Bld) [Entitic vol] 9.6 fL Normal 9.0-12.7 [facility] Comment on above: Order Comment: Speci men Type: BLOOD SPECIMENOrdering Facility: [facility] Address: [address] [place] [address] Performed By: #### 5 7021-8 ####[facility] LABCLIA [id number] [place] [address] Platelets (Bld) [#/Vol] 271 10*3/uL Normal 150-400 [facility] Comment on above: Order Comment: Speci men Type: BLOOD SPECIMENOrdering Facility: [facility] Address: [address] [place] [address] Performed By: #### 5 7021-8 ####[facility] LABCLIA [id number] [place] [address] RBC (Bld) [#/Vol] 4.44 10*6/uL Normal 3.90-5.20 [facility] Comment on above: Order Comment: Speci men Type: BLOOD SPECIMENOrdering Facility: [facility] Address: [address] [place] [address] Performed By: #### 5 7021-8 ####[facility] LABCLIA [id number] [place] [address] WBC (Bld) [#/Vol] 10.69 10*3/uL Normal 3.70-11.00 [facility] Comment on above: Order Comment: Speci men Type: BLOOD SPECIMENOrdering Facility: [facility] Address: [address] [place] [address] Performed By: #### 5 7021-8 ####[facility] LABCLIA [id number] [place] [address] Comprehensive metabolic 2000 panelon 11-24-2023 Albumin [Mass/Vol] 4.1 g/dL Normal 3.9-4.9 [facility] Comment on above: Order Comment: Speci men Type: BLOOD SPECIMENOrdering Facility: [facility] Address: [address] [place] [address] Performed By: #### 2 4323-8 ####[facility] LABCLIA [id number] [place] [address] ALP [Catalytic activity/Vol] 69 U/L Normal 34-123 [facility] Comment on above: Order Comment: Speci men Type: BLOOD SPECIMENOrdering Facility: [facility] Address: [address] [place] [address] Performed By: #### 2 4323-8 ####[facility] LABCLIA [id number] [place] [address] ALT [Catalytic activity/Vol] 24 U/L Normal 7-38 [facility] Comment on above: Order Comment: Speci men Type: BLOOD SPECIMENOrdering Facility: [facility] Address: [address] [place] [address] Performed By: #### 2 4323-8 ####[facility] LABCLIA [id number] [place] [address] Anion gap [Moles/Vol] 9 mmol/L Normal 8-15 [facility] Comment on above: Order Comment: Speci men Type: BLOOD SPECIMENOrdering Facility: [facility] Address: [address] [place] [address] Performed By: #### 2 4323-8 ####[facility] LABCLIA [id number] [place] [address] AST [Catalytic activity/Vol] 13 U/L Normal 13-35 [facility] Comment on above: Order Comment: Speci men Type: BLOOD SPECIMENOrdering Facility: [facility] Address: [address] [place] [address] Performed By: #### 2 4323-8 ####[facility] LABCLIA [id number] [place] [address] Bilirubin [Mass/Vol] 0.2 mg/dL Normal 0.2-1.3 [facility] Comment on above: Order Comment: Speci men Type: BLOOD SPECIMENOrdering Facility: [facility] Address: [address] [place] [address] Performed By: #### 2 4323-8 ####[facility] LABCLIA [id number] [place] [address] Calcium [Mass/Vol] 9.9 mg/dL Normal 8.5-10.2 [facility] Comment on above: Order Comment: Speci men Type: BLOOD SPECIMENOrdering Facility: [facility] Address: [address] [place] [address] Performed By: #### 2 4323-8 ####[facility] LABCLIA [id number] [place] [address] Chloride [Moles/Vol] 104 mmol/L Normal 98-107 [facility] Comment on above: Order Comment: Speci men Type: BLOOD SPECIMENOrdering Facility: [facility] Address: [address] [place] [address] Performed By: #### 2 4323-8 ####[facility] LABCLIA [id number] [place] [address] CO2 [Moles/Vol] 24 mmol/L Normal 22-30 [facility] Comment on above: Order Comment: Speci men Type: BLOOD SPECIMENOrdering Facility: [facility] Address: [address] [place] [address] Performed By: #### 2 4323-8 ####[facility] LABCLIA [id number] [place] [address] Creatinine [Mass/Vol] 0.74 mg/dL Normal 0.58-0.96 [facility] Comment on above: Order Comment: Speci men Type: BLOOD SPECIMENOrdering Facility: [facility] Address: [address] [place] [address] Performed By: #### 2 4323-8 ####[facility] LABCLIA [id number] [place] [address] Creatinine and Glomerular filtration rate.predicted panel (S/P/Bld) 103 mL/min/1.73m??? Normal >=60 [facility] Comment on above: Order Comment: Speci men Type: BLOOD SPECIMENOrdering Facility: [facility] Address: [address] [id number] Result Comment: Erin mated Glomerular Filtration Rate [...] 4323-8 ####[facility] LABCLIA [id number] [place] [address] Glucose [Mass/Vol] 185 mg/dL High 74-99 [facility] Comment on above: Order Comment: Semaj men Type: BLOOD SPECIMENOrdering Facility: [facility] Address: [address] [place] [address] Result Comment: The [place] [employer] (ADA) provides guidance for cutoff [...] Standards of Medical Care in Diabetes 2016, [place] [employer]. Diabetes Care. 2016.39(Suppl 1). Performed By: #### 2 4323-8 ####[facility] LABCLIA [id number] [place] [address] Potassium [Moles/Vol] 4.2 mmol/L Normal 3.7-5.1 [facility] Comment on above: Order Comment: Semaj cortés Type: BLOOD SPECIMENOrdering Facility: [facility] Address: [address] [id number] Performed By: #### 2 4323-8 ####[facility] LABCLIA [id number] [place] [address] Protein [Mass/Vol] 7.1 g/dL Normal 6.3-8.0 [facility] Comment on above: Order Comment: Speci men Type: BLOOD SPECIMENOrdering Facility: [facility] Address: [address] [place] [address] Performed By: #### 2 4323-8 ####[facility] LABCLIA [id number] [place] [address] Sodium [Moles/Vol] 137 mmol/L Normal 136-144 [facility] Comment on above: Order Comment: Speci men Type: BLOOD SPECIMENOrdering Facility: [facility] Address: [address] [place] [address] Performed By: #### 2 4323-8 ####[facility] LABCLIA [id number] [place] [address] Urea nitrogen [Mass/Vol] 12 mg/dL Normal 7-21 [facility] Comment on above: Order Comment: Speci men Type: BLOOD SPECIMENOrdering Facility: [facility] Address: [address] [place] [address] Performed By: #### 2 4323-8 ####[facility] LABCLIA [id number] [place] [address] ESR Westergren method (Bld) [Velocity]on 11-24-2023 ESR (Bld) [Velocity] 32 mm/h High 0-20 [facility] Comment on above: Order Comment: Speci men Type: BLOOD SPECIMENOrdering Facility: [facility] Address: [address] [place] [address] Performed By: #### 4 537-7 ####[facility] LABCLIA [id number] [address] [address] [place] Ferritin SerPl-mCncon 2023 Ferritin [Mass/Vol] 31.5 ng/mL Normal 14.7-205.1 [facility] Comment on above: Order Comment: Speci men Type: BLOOD SPECIMENOrdering Facility: [facility] Address: [address] [place] [address] Performed By: #### 2 276-4, 2284-8, 35689-8, 9 ####[facility] LABCLIA [id number] [place] [address] [place] Folate SerPl-mCncon 11-24-19 24 Folate [Mass/Vol] 3.0 ng/mL Low >4.7 [facility] Comment on above: Order Comment: Speci men Type: BLOOD SPECIMENOrdering Facility: [facility] Address: [address] [place] [address] Performed By: #### 2 276-4, 2284-8, 90400-8, 9 ####[facility] LABCLIA [id number] [place] [address] [place] IgA SerPl-mCncon 11-24-2023 IgA [Mass/Vol] 162 mg/dL Normal 70-400 [facility] Comment on above: Order Comment: Speci men Type: BLOOD SPECIMENOrdering Facility: [facility] Address: [address] [place] [address] Performed By: #### 2 458-8, 2465-3, 2472-9 ####[facility] LABCLIA [id number] [place] [address] [place] IgE SerPl-aCncon 11-24-2023 IgE Qn 5.8 kU/l Normal <114.0 [facility] Comment on above: Order Comment: Speci men Type: BLOOD SPECIMENOrdering Facility: [facility] Address: [address] [place] [address] Performed By: #### 1 9113-0 ####[facility] LABCLIA [id number] [place] [address] [place] IgG SerPl-mCncon 11-24-2023 IgG [Mass/Vol] 526 mg/dL Low 700-1600 [facility] Comment on above: Order Comment: Speci men Type: BLOOD SPECIMENOrdering Facility: [facility] Address: [address] [place] [address] Performed By: #### 2 458-8, 2465-3, 247-9 ####[facility] LABCLIA [id number] [place] [address] [place] IgM SerPl-mCncon 11-24-2023 IgM [Mass/Vol] 389 mg/dL High 40-230 [facility] Comment on above: Order Comment: Speci men Type: BLOOD SPECIMENOrdering Facility: [facility] Address: [address] [place] [address] Performed By: #### 2 458-8, 2465-3, 9 ####[facility] LABCLIA [id number] [place] [address] [place] Iron and Iron binding capaci ty panelon 11-24-2023 Iron [Mass/Vol] 65 ug/dL Normal 41-186 [facility] Comment on above: Order Comment: Speci men Type: BLOOD SPECIMENOrdering Facility: [facility] Address: [address] [place] [address] Performed By: #### 2 276-4, 2284-8, 03802-8, 9 ####[facility] LABCLIA [id number] [place] [address] [place] Iron binding capacity [Mass/Vol] 373 ug/dL Normal 232-386 [facility] Comment on above: Order Comment: Speci men Type: BLOOD SPECIMENOrdering Facility: [facility] Address: [address] [place] [address] Performed By: #### 2 276-4, 2284-8, 94633-2, 9 ####[facility] LABCLIA [id number] [place] [address] [place] Iron/TIBC [Molar ratio] 17.4 % Normal 15.0-57.0 [facility] Comment on above: Order Comment: Speci men Type: BLOOD SPECIMENOrdering Facility: [facility] Address: [address] [place] [address] Performed By: #### 2 276-4, 2284-8, 88932-3, 9 ####[facility] LABCLIA [id number] [place] [address] [place] Vit B12 [facility] 024 Cobalamin (Vitamin B12) [Mass/Vol] 633 pg/mL Normal 232-1245 [facility] Comment on above: Order Comment: Speci men Type: BLOOD SPECIMENOrdering Facility: [facility] Address: [address] [place] [address] Performed By: #### 2 276-4, 2284-8, 30802-1, 9 ####[facility] LABCLIA [id number] [place] [address] [place] CNNURSEon 10-27-2023 CNNURSE Normal [facility] CNNURSEon 09-30-2023 CNNURSE Normal [facility] CNPNon 09-04-2023 CNPN Normal [facility] 25(OH)D3 [facility] 2023 25-hydroxyvitamin D3 [Mass/Vol] 32.2 ng/mL Normal 31.0-80.0 [facility] Comment on above: Order Comment: Speci men Type: BLOOD SPECIMENOrdering Facility: [facility] Address: [address] [place] [address] Result Comment: Clas sification of 25 [place] Vitamin D status:Deficiency/Insufficiency: < or = 30 ng/ml.Sufficiency/Optimal Levels: 31-80 ng/mLToxicity: > 100 ng/mL.Test performed by chemiluminescent immunoassay. Performed By: #### 1 989-3 ####[facility] LABCLIA [id number] [place] [address] [place] CBC W Auto Differential pane l (Bld)on 08-31-2023 Basophils (Bld) [#/Vol] 0.07 10*3/uL Normal <0.11 [facility] Comment on above: Order Comment: Speci men Type: BLOOD SPECIMENOrdering Facility: [facility] Address: [address] [place] [address] Performed By: #### 5 7021-8 ####[facility] LABCLIA [id number] [place] [address] Basophils/100 WBC (Bld) 0.5 % Normal [facility] Comment on above: Order Comment: Speci men Type: BLOOD SPECIMENOrdering Facility: [facility] Address: [address] [place] [address] Performed By: #### 5 7021-8 ####[facility] LABCLIA [id number] [place] [address] Differential cell count method Nom (Bld) Auto Normal [facility] Comment on above: Order Comment: Speci men Type: BLOOD SPECIMENOrdering Facility: [facility] Address: [address] [place] [address] Performed By: #### 5 7021-8 ####[facility] LABCLIA [id number] [place] [address] Eosinophils (Bld) [#/Vol] 0.20 10*3/uL Normal <0.46 [facility] Comment on above: Order Comment: Speci men Type: BLOOD SPECIMENOrdering Facility: [facility] Address: [address] [place] [address] Performed By: #### 5 7021-8 ####[facility] LABCLIA [id number] [place] [address] Eosinophils/100 WBC (Bld) 1.5 % Normal [facility] Comment on above: Order Comment: Speci men Type: BLOOD SPECIMENOrdering Facility: [facility] Address: [address] [place] [address] Performed By: #### 5 7021-8 ####[facility] LABCLIA [id number] [place] [address] Erythrocyte distribution width (RBC) [Ratio] 14.6 % Normal 11.5-15.0 [facility] Comment on above: Order Comment: Speci men Type: BLOOD SPECIMENOrdering Facility: [facility] Address: [address] [place] [address] Performed By: #### 5 7021-8 ####[facility] LABCLIA [id number] [place] [address] Hematocrit (Bld) [Volume fraction] 41.5 % Normal 36.0-46.0 [facility] Comment on above: Order Comment: Speci men Type: BLOOD SPECIMENOrdering Facility: [facility] Address: [address] [place] [address] Performed By: #### 5 7021-8 ####[facility] LABCLIA [id number] [place] [address] Hemoglobin (Bld) [Mass/Vol] 13.3 g/dL Normal 11.5-15.5 [facility] Comment on above: Order Comment: Speci men Type: BLOOD SPECIMENOrdering Facility: [facility] Address: [address] [place] [address] Performed By: #### 5 7021-8 ####[facility] LABCLIA [id number] [place] [address] Immature granulocytes (Bld) [#/Vol] 0.14 10*3/uL High <0.10 [facility] Comment on above: Order Comment: Speci men Type: BLOOD SPECIMENOrdering Facility: [facility] Address: [address] [place] [address] Performed By: #### 5 7021-8 ####[facility] LABCLIA [id number] [place] [address] Immature granulocytes/100 WBC (Bld) 1.0 % Normal [facility] Comment on above: Order Comment: Speci men Type: BLOOD SPECIMENOrdering Facility: [facility] Address: [address] [place] [address] Performed By: #### 5 7021-8 ####[facility] LABCLIA [id number] [place] [address] Lymphocytes (Bld) [#/Vol] 2.58 10*3/uL Normal 1.00-4.00 [facility] Comment on above: Order Comment: Speci men Type: BLOOD SPECIMENOrdering Facility: [facility] Address: [address] [place] [address] Performed By: #### 5 7021-8 ####[facility] LABCLIA [id number] [place] [address] Lymphocytes/100 WBC (Bld) 19.2 % Normal [facility] Comment on above: Order Comment: Speci men Type: BLOOD SPECIMENOrdering Facility: [facility] Address: [address] [place] [address] Performed By: #### 5 7021-8 ####[facility] LABCLIA [id number] [place] [address] MCH (RBC) [Entitic mass] 30.0 pg Normal 26.0-34.0 [facility] Comment on above: Order Comment: Speci men Type: BLOOD SPECIMENOrdering Facility: [facility] Address: [address] [place] [address] Performed By: #### 5 7021-8 ####[facility] LABCLIA [id number] [place] [address] MCHC (RBC) [Mass/Vol] 32.0 g/dL Normal 30.5-36.0 [facility] Comment on above: Order Comment: Speci men Type: BLOOD SPECIMENOrdering Facility: [facility] Address: [address] [place] [address] Performed By: #### 5 7021-8 ####[facility] LABCLIA [id number] [place] [address] MCV (RBC) [Entitic vol] 93.7 fL Normal 80.0-100.0 [facility] Comment on above: Order Comment: Speci men Type: BLOOD SPECIMENOrdering Facility: [facility] Address: [address] [place] [address] Performed By: #### 5 7021-8 ####[facility] LABCLIA [id number] [place] [address] Monocytes (Bld) [#/Vol] 0.75 10*3/uL Normal <0.87 [facility] Comment on above: Order Comment: Speci men Type: BLOOD SPECIMENOrdering Facility: [facility] Address: [address] [place] [address] Performed By: #### 5 7021-8 ####[facility] LABCLIA [id number] [place] [address] Monocytes/100 WBC (Bld) 5.6 % Normal [facility] Comment on above: Order Comment: Speci men Type: BLOOD SPECIMENOrdering Facility: [facility] Address: [address] [place] [address] Performed By: #### 5 7021-8 ####[facility] LABCLIA [id number] [place] [address] Neutrophils (Bld) [#/Vol] 9.69 10*3/uL High 1.45-7.50 [facility] Comment on above: Order Comment: Speci men Type: BLOOD SPECIMENOrdering Facility: [facility] Address: [address] [place] [address] Performed By: #### 5 7021-8 ####[facility] LABIA [id number] [place] [address] Neutrophils/100 WBC (Bld) 72.2 % Normal [facility] Comment on above: Order Comment: Speci men Type: BLOOD SPECIMENOrdering Facility: [facility] Address: [address] [place] [address] Performed By: #### 5 7021-8 ####[facility] LABCLIA [id number] [place] [address] Nucleated RBC (Bld) [#/Vol] 10*3/uL Normal <0.01 [facility] Comment on above: Order Comment: Speci men Type: BLOOD SPECIMENOrdering Facility: [facility] Address: [address] [place] [address] Performed By: #### 5 7021-8 ####[facility] LABCLIA [id number] [place] [address] Nucleated RBC/100 WBC (Bld) [Ratio] 0.0 /100 WBC Normal [facility] Comment on above: Order Comment: Speci men Type: BLOOD SPECIMENOrdering Facility: [facility] Address: [address] [place] [address] Performed By: #### 5 7021-8 ####[facility] LABCLIA [id number] [place] [address] Platelet mean volume (Bld) [Entitic vol] 9.6 fL Normal 9.0-12.7 [facility] Comment on above: Order Comment: Speci men Type: BLOOD SPECIMENOrdering Facility: [facility] Address: [address] [place] [address] Performed By: #### 5 7021-8 ####[facility] LABCLIA [id number] [place] [address] Platelets (Bld) [#/Vol] 304 10*3/uL Normal 150-400 [facility] Comment on above: Order Comment: Speci men Type: BLOOD SPECIMENOrdering Facility: [facility] Address: [address] [place] [address] Performed By: #### 5 7021-8 ####[facility] LABCLIA [id number] [place] [address] RBC (Bld) [#/Vol] 4.43 10*6/uL Normal 3.90-5.20 [facility] Comment on above: Order Comment: Speci men Type: BLOOD SPECIMENOrdering Facility: [facility] Address: [address] [place] [address] Performed By: #### 5 7021-8 ####[facility] LABCLIA [id number] [place] [address] WBC (Bld) [#/Vol] 13.43 10*3/uL High 3.70-11.00 [facility] Comment on above: Order Comment: Speci men Type: BLOOD SPECIMENOrdering Facility: [facility] Address: [address] [place] [address] Performed By: #### 5 7021-8 ####[facility] LABCLIA [id number] [place] [address] CNNURSEon 08-31-2023 CNNURSE Normal [facility] CRP SerPl-mCncon 08-31-2023 CRP [Mass/Vol] 0.6 mg/dL Normal <0.9 [facility] Comment on above: Order Comment: Speci men Type: BLOOD SPECIMENOrdering Facility: [facility] Address: [address] [place] [address] Performed By: #### 1 988-5, 95314-0, 2276-4 ####[facility] LABCLIA [id number] [place] [address] [facility] Comprehensive metabolic 2000 panelon 08-31-2023 Albumin [Mass/Vol] 4.0 g/dL Normal 3.9-4.9 [facility] Comment on above: Order Comment: Speci men Type: BLOOD SPECIMENOrdering Facility: [facility] Address: [address] [place] [address] Performed By: #### 2 4323-8 ####[facility] LABCLIA [id number] [place] [address] ALP [Catalytic activity/Vol] 69 U/L Normal 34-123 [facility] Comment on above: Order Comment: Speci men Type: BLOOD SPECIMENOrdering Facility: [facility] Address: [address] [place], [place] [address] Performed By: #### 2 4323-8 ####[facility] LABCLIA [id number] [place] [address] ALT [Catalytic activity/Vol] 31 U/L Normal 7-38 [facility] Comment on above: Order Comment: Speci men Type: BLOOD SPECIMENOrdering Facility: [facility] Address: [address] [place] [address] Performed By: #### 2 4323-8 ####[facility] LABCLIA [id number] [place] [address] Anion gap [Moles/Vol] 11 mmol/L Normal 9-18 [facility] Comment on above: Order Comment: Speci men Type: BLOOD SPECIMENOrdering Facility: [facility] Address: [address] [place] [address] Performed By: #### 2 4323-8 ####[facility] LABCLIA [id number] [place] [address] AST [Catalytic activity/Vol] 18 U/L Normal 13-35 [facility] Comment on above: Order Comment: Speci men Type: BLOOD SPECIMENOrdering Facility: [facility] Address: [address] [place], [place] [address] Performed By: #### 2 4323-8 ####[facility] LABCLIA [id number] [place] [address] Bilirubin [Mass/Vol] 0.3 mg/dL Normal 0.2-1.3 [facility] Comment on above: Order Comment: Speci men Type: BLOOD SPECIMENOrdering Facility: [facility] Address: [address] [place], [place] [address] Performed By: #### 2 4323-8 ####[facility] LABCLIA [id number] [place] [address] Calcium [Mass/Vol] 10.0 mg/dL Normal 8.5-10.2 [facility] Comment on above: Order Comment: Speci men Type: BLOOD SPECIMENOrdering Facility: [facility] Address: [address] [place] [address] Performed By: #### 2 4323-8 ####[facility] LABCLIA [id number] [place] [address] Chloride [Moles/Vol] 105 mmol/L Normal 97-105 [facility] Comment on above: Order Comment: Speci men Type: BLOOD SPECIMENOrdering Facility: [facility] Address: [address] [place] [address] Performed By: #### 2 4323-8 ####[facility] LABCLIA [id number] [place] [address] CO2 [Moles/Vol] 25 mmol/L Normal 22-30 [facility] Comment on above: Order Comment: Speci men Type: BLOOD SPECIMENOrdering Facility: [facility] Address: [address] [place] [address] Performed By: #### 2 4323-8 ####[facility] LABCLIA [id number] [place] [address] Creatinine [Mass/Vol] 0.80 mg/dL Normal 0.58-0.96 [facility] Comment on above: Order Comment: Speci men Type: BLOOD SPECIMENOrdering Facility: [facility] Address: [address] [place] [address] Performed By: #### 2 4323-8 ####[facility] LABCLIA [id number] [place] [address] Creatinine and Glomerular filtration rate.predicted panel (S/P/Bld) 94 mL/min/1.73m??? Normal >=60 [facility] Comment on above: Order Comment: Speci men Type: BLOOD SPECIMENOrdering Facility: [facility] Address: [address] [id number] Result Comment: Erin mated Glomerular Filtration Rate [...] 4323-8 ####[facility] LABCLIA [id number] [place] [address] Glucose [Mass/Vol] 160 mg/dL High 74-99 [facility] Comment on above: Order Comment: Semaj cortés Type: BLOOD SPECIMENOrdering Facility: [facility] Address: [address] [place] [address] Result Comment: The [place] [employer] (ADA) provides guidance for cutoff [...] Standards of Medical Care in Diabetes 2016, [place] [employer]. Diabetes Care. 2016.39(Suppl 1). Performed By: #### 2 4323-8 ####[facility] LABCLIA [id number] [place] [address] Potassium [Moles/Vol] 4.2 mmol/L Normal 3.7-5.1 [facility] Comment on above: Order Comment: Semaj cortés Type: BLOOD SPECIMENOrdering Facility: [facility] Address: [address] [id number] Performed By: #### 2 4323-8 ####[facility] LABCLIA [id number] [place] [address] Protein [Mass/Vol] 6.9 g/dL Normal 6.3-8.0 [facility] Comment on above: Order Comment: Speci men Type: BLOOD SPECIMENOrdering Facility: [facility] Address: [address] [place] [address] Performed By: #### 2 4323-8 ####[facility] LABCLIA [id number] [place] [address] Sodium [Moles/Vol] 141 mmol/L Normal 136-144 [facility] Comment on above: Order Comment: Speci men Type: BLOOD SPECIMENOrdering Facility: [facility] Address: [address] [place] [address] Performed By: #### 2 4323-8 ####[facility] LABCLIA [id number] [place] [address] Urea nitrogen [Mass/Vol] 13 mg/dL Normal 7-21 [facility] Comment on above: Order Comment: Speci men Type: BLOOD SPECIMENOrdering Facility: [facility] Address: [address] [place] [address] Performed By: #### 2 4323-8 ####[facility] LABCLIA [id number] [place] [address] ESR Westergren method (Bld) [Velocity]on 08-31-2023 ESR (Bld) [Velocity] 37 mm/h High 0-20 [facility] Comment on above: Order Comment: Speci men Type: BLOOD SPECIMENOrdering Facility: [facility] Address: [address] [place] [address] Performed By: #### 4 537-7 ####[facility] LABCLIA [id number] [place] [address] [place] Ferritin SerPl-mCncon 2023 Ferritin [Mass/Vol] 60.3 ng/mL Normal 14.7-205.1 [facility] Comment on above: Order Comment: Speci men Type: BLOOD SPECIMENOrdering Facility: [facility] Address: [address] [place] [address] Performed By: #### 1 988-5, 34753-8, 2275-4 ####[facility] LABCLIA [id number] [place] [address] [place] Folate SerPl-ncon 08-31-19 24 Folate [Mass/Vol] ng/mL Normal >4.7 [facility] Comment on above: Order Comment: Speci men Type: BLOOD SPECIMENOrdering Facility: [facility] Address: [address] [place] [address] Result Comment: A re sult of > 20 ng/mL is not necessarily indicative of a pathologic or treatable condition: it reflects a limitation of the test methodology.Assay reference range: 4.8 to 24.2 ng/mL. Suitable for detection of folate deficiency.Reference:Folate III (Folate III) [package insert V 1.0 [place]]. [facility], [place], [place]: March 2015. Performed By: #### 2 284-8, 2132-9 ####[facility] LABIA [id number] [place] [address] [place] Iron and Iron binding capaci [facility] 08-31-2023 Iron [Mass/Vol] 87 ug/dL Normal 41-186 [facility] Comment on above: Order Comment: Speci men Type: BLOOD SPECIMENOrdering Facility: [facility] Address: [address] [place] [address] Performed By: #### 1 988-5, 37624-5, 2275-4 ####[facility] LABIA [id number] [place] [address] [place] Iron binding capacity [Mass/Vol] 356 ug/dL Normal 232-386 [facility] Comment on above: Order Comment: Speci men Type: BLOOD SPECIMENOrdering Facility: [facility] Address: [address] [place] [address] Performed By: #### 1 988-5, 21620-4, 2276-4 ####[facility] LABIA [id number] [place] [id number] [place] Iron/TIBC [Molar ratio] 24.4 % Normal 15.0-57.0 [facility] Comment on above: Order Comment: Speci men Type: BLOOD SPECIMENOrdering Facility: [facility] Address: [address] [place] [address] Performed By: #### 1 988-5, 47739-1, 2276-4 ####[facility] [id number] [place] [address] [place] Vit B12 SerPl-[facility] Foundationon 024 Cobalamin (Vitamin B12) [Mass/Vol] 820 pg/mL Normal 232-1245 [facility] Comment on above: Order Comment: Speci men Type: BLOOD SPECIMENOrdering Facility: [facility] Address: [address] [place] [address] Performed By: #### 2 284-8, 2132-9 ####[facility] [id number] [place] [address] [place] CNNURSEon 08-05-2023 CNNURSE Normal [facility] CNNURSEon 07-13-2023 CNNURSE Normal [facility] ECG 12 Leadon 07-13-2023 ECG revealed normal sinus rhythm [facility] Work Phone: CNPNon 06-12-2023 CNPN Normal [facility] 25(OH)D3 SerPl-ncon 2023 25-hydroxyvitamin D3 [Mass/Vol] 17.3 ng/mL Low 31.0-80.0 [facility] Comment on above: Order Comment: Speci men Type: BLOOD SPECIMENOrdering Facility: [facility] Address: [address] [place] [address] Result Comment: Clas sification of 25 [place] Vitamin D status:Deficiency/Insufficiency: < or = 30 ng/ml.Sufficiency/Optimal Levels: 31-80 ng/mLToxicity: > 100 ng/mL.Test performed by chemiluminescent immunoassay. Performed By: #### 1 989-3 ####[facility] LABCLIA [id number] [facility] [id number] OF [facility] CBC panel Auto (Bld)on 06-10 Erythrocyte distribution width (RBC) [Ratio] 14.5 % Normal 11.5-15.0 [facility] Comment on above: Order Comment: Speci men Type: BLOOD SPECIMENOrdering Facility: [facility] Address: [address] [place] [address] Performed By: #### 5 8410-2 ####[facility] LABCLIA [id number] [place] [address] Hematocrit (Bld) [Volume fraction] 43.1 % Normal 36.0-46.0 [facility] Comment on above: Order Comment: Speci men Type: BLOOD SPECIMENOrdering Facility: [facility] Address: [address] [place] [address] Performed By: #### 5 8410-2 ####[facility] LABCLIA [id number] [place] [address] Hemoglobin (Bld) [Mass/Vol] 13.9 g/dL Normal 11.5-15.5 [facility] Comment on above: Order Comment: Speci men Type: BLOOD SPECIMENOrdering Facility: [facility] Address: [address] [place] [address] Performed By: #### 5 8410-2 ####[facility] LABIA [id number] [place] [address] MCH (RBC) [Entitic mass] 30.6 pg Normal 26.0-34.0 [facility] Comment on above: Order Comment: Speci men Type: BLOOD SPECIMENOrdering Facility: [facility] Address: [address] [place] [address] Performed By: #### 5 8410-2 ####[facility] LABCLIA [id number] [place] [address] MCHC (RBC) [Mass/Vol] 32.3 g/dL Normal 30.5-36.0 [facility] Comment on above: Order Comment: Speci men Type: BLOOD SPECIMENOrdering Facility: [facility] Address: [address] [place] [address] Performed By: #### 5 8410-2 ####[facility] LABCLIA [id number] [place] [address] MCV (RBC) [Entitic vol] 94.9 fL Normal 80.0-100.0 [facility] Comment on above: Order Comment: Speci men Type: BLOOD SPECIMENOrdering Facility: [facility] Address: [address] [place] [address] Performed By: #### 5 8410-2 ####[facility] LABIA [id number] [place] [address] Nucleated RBC (Bld) [#/Vol] 10*3/uL Normal <0.01 [facility] Comment on above: Order Comment: Speci men Type: BLOOD SPECIMENOrdering Facility: [facility] Address: [address] [place] [address] Performed By: #### 5 8410-2 ####[facility] LABCLIA [id number] [place] [address] Platelet mean volume (Bld) [Entitic vol] 9.5 fL Normal 9.0-12.7 [facility] Comment on above: Order Comment: Speci men Type: BLOOD SPECIMENOrdering Facility: [facility] Address: [address] [place] [address] Performed By: #### 5 8410-2 ####[facility] LABCLIA [id number] [place] [address] Platelets (Bld) [#/Vol] 320 10*3/uL Normal 150-400 [facility] Comment on above: Order Comment: Speci men Type: BLOOD SPECIMENOrdering Facility: [facility] Address: [address] [place] [address] Performed By: #### 5 8410-2 ####[facility] LABCLIA [id number] [place] [address] RBC (Bld) [#/Vol] 4.54 10*6/uL Normal 3.90-5.20 [facility] Comment on above: Order Comment: Speci men Type: BLOOD SPECIMENOrdering Facility: [facility] Address: [address] [place] [address] Performed By: #### 5 8410-2 ####[facility] LABCLIA [id number] [place] [address] WBC (Bld) [#/Vol] 15.15 10*3/uL High 3.70-11.00 [facility] Comment on above: Order Comment: Speci men Type: BLOOD SPECIMENOrdering Facility: [facility] Address: [address] [place] [address] Performed By: #### 5 8410-2 ####[facility] LABCLIA [id number] [place] [address] CNNURSEon 06-10-2023 CNNURSE Normal [facility] CNOVSPon 06-10-2023 CNOVSP Normal [facility] CRP SerPl-mCncon 06-10-2023 CRP [Mass/Vol] mg/L Normal <0.9 [facility] Comment on above: Order Comment: Speci men Type: BLOOD SPECIMENOrdering Facility: [facility] Address: [address] [place] [address] Performed By: #### 1 988-5 ####[facility] LABCLIA [id number] [facility] [id number] [address] [place] Comprehensive metabolic 2000 panelon 06-10-2023 Albumin [Mass/Vol] 4.1 g/dL Normal 3.9-4.9 [facility] Comment on above: Order Comment: Speci men Type: BLOOD SPECIMENOrdering Facility: [facility] Address: [address] [place] [address] Performed By: #### 2 4323-8 ####[facility] LABCLIA [id number] [place] [address] ALP [Catalytic activity/Vol] 72 U/L Normal 34-123 [facility] Comment on above: Order Comment: Speci men Type: BLOOD SPECIMENOrdering Facility: [facility] Address: [address] [place] [address] Performed By: #### 2 4323-8 ####[facility] LABCLIA [id number] [place] [address] ALT [Catalytic activity/Vol] 22 U/L Normal 7-38 [facility] Comment on above: Order Comment: Speci men Type: BLOOD SPECIMENOrdering Facility: [facility] Address: [address] [place] [address] Performed By: #### 2 4323-8 ####[facility] LABCLIA [id number] [place] [address] Anion gap [Moles/Vol] 10 mmol/L Normal 9-18 [facility] Comment on above: Order Comment: Speci men Type: BLOOD SPECIMENOrdering Facility: [facility] Address: [address] [place] [address] Performed By: #### 2 4323-8 ####[facility] LABCLIA [id number] [place] [address] AST [Catalytic activity/Vol] 9 U/L Low 13-35 [facility] Comment on above: Order Comment: Speci men Type: BLOOD SPECIMENOrdering Facility: [facility] Address: [address] [place] [address] Performed By: #### 2 4323-8 ####[facility] LABCLIA [id number] [place] [address] Bilirubin [Mass/Vol] 0.2 mg/dL Normal 0.2-1.3 [facility] Comment on above: Order Comment: Speci men Type: BLOOD SPECIMENOrdering Facility: [facility] Address: [address] [place] [address] Performed By: #### 2 4323-8 ####[facility] LABCLIA [id number] [place] [address] Calcium [Mass/Vol] 9.8 mg/dL Normal 8.5-10.2 [facility] Comment on above: Order Comment: Speci men Type: BLOOD SPECIMENOrdering Facility: [facility] Address: [address] [place] [address] Performed By: #### 2 4323-8 ####[facility] LABCLIA [id number] [place] [address] Chloride [Moles/Vol] 107 mmol/L High 97-105 [facility] Comment on above: Order Comment: Speci men Type: BLOOD SPECIMENOrdering Facility: [facility] Address: [address] [place] [address] Performed By: #### 2 4323-8 ####[facility] LABCLIA [id number] [place] [address] CO2 [Moles/Vol] 24 mmol/L Normal 22-30 [facility] Comment on above: Order Comment: Speci men Type: BLOOD SPECIMENOrdering Facility: [facility] Address: [address] [place] [address] Performed By: #### 2 4323-8 ####[facility] LABCLIA [id number] [place] [address] Creatinine [Mass/Vol] 0.80 mg/dL Normal 0.58-0.96 [facility] Comment on above: Order Comment: Speci men Type: BLOOD SPECIMENOrdering Facility: [facility] Address: [address] [place] [address] Performed By: #### 2 4323-8 ####[facility] LABCLIA [id number] [place] [address] Creatinine and Glomerular filtration rate.predicted panel (S/P/Bld) 94 mL/min/1.73m??? Normal >=60 [facility] Comment on above: Order Comment: Speci men Type: BLOOD SPECIMENOrdering Facility: [facility] Address: [address] [place] [address] Result Comment: Erin mated Glomerular Filtration Rate [...] 4323-8 ####[facility] LABIA [id number] [place] [address] Glucose [Mass/Vol] 98 mg/dL Normal 74-99 [facility] Comment on above: Order Comment: Speci men Type: BLOOD SPECIMENOrdering Facility: [facility] Address: [address] [place] [address] Result Comment: The [place] [employer] (ADA) provides guidance for cutoff [...] Standards of Medical Care in Diabetes 2016, [place] [employer]. Diabetes Care. 2016.39(Suppl 1). Performed By: #### 2 4323-8 ####[facility] LABIA [id number] [place] [address] Potassium [Moles/Vol] 3.6 mmol/L Low 3.7-5.1 [facility] Comment on above: Order Comment: Speci men Type: BLOOD SPECIMENOrdering Facility: [facility] Address: [address] [place] [address] Performed By: #### 2 4323-8 ####[facility] LABCLIA [id number] [place] [address] Protein [Mass/Vol] 7.0 g/dL Normal 6.3-8.0 [facility] Comment on above: Order Comment: Speci men Type: BLOOD SPECIMENOrdering Facility: [facility] Address: [address] [place] [address] Performed By: #### 2 4323-8 ####[facility] LABCLIA [id number] [place] [address] Sodium [Moles/Vol] 141 mmol/L Normal 136-144 [facility] Comment on above: Order Comment: Speci men Type: BLOOD SPECIMENOrdering Facility: [facility] Address: [address] [place] [address] Performed By: #### 2 4323-8 ####[facility] LABCLIA [id number] [place] [address] Urea nitrogen [Mass/Vol] 17 mg/dL Normal 7-21 [facility] Comment on above: Order Comment: Speci men Type: BLOOD SPECIMENOrdering Facility: [facility] Address: [address] [place] [address] Performed By: #### 2 4323-8 ####[facility] LABCLIA [id number] [place] [address] ESR Westergren method (Bld) [Velocity]on 06-10-2023 ESR (Bld) [Velocity] 28 mm/h High 0-20 [facility] Comment on above: Order Comment: Speci men Type: BLOOD SPECIMENOrdering Facility: [facility] Address: [address] [place] [address] Performed By: #### 4 537-7 ####[facility] LABCLIA [id number] [id number], [place] [address] [place] CBC W Auto Differential pane l (Bld)on 06-03-2023 Basophils (Bld) [#/Vol] 0.05 10*3/uL Normal <0.11 [facility] Comment on above: Order Comment: Speci men Type: BLOOD SPECIMENOrdering Facility: [facility] Address: [address] [place] [address] Performed By: #### 5 7021-8 ####[facility] LABCLIA [id number] [place] [address] Basophils/100 WBC (Bld) 0.4 % Normal [facility] Comment on above: Order Comment: Speci men Type: BLOOD SPECIMENOrdering Facility: [facility] Address: [address] [place] [address] Performed By: #### 5 7021-8 ####[facility] LABCLIA [id number] [place] [address] Differential cell count method Nom (Bld) Auto Normal [facility] Comment on above: Order Comment: Speci men Type: BLOOD SPECIMENOrdering Facility: [facility] Address: [address] [place] [address] Performed By: #### 5 7021-8 ####[facility] LABCLIA [id number] [place] [address] Eosinophils (Bld) [#/Vol] 0.14 10*3/uL Normal <0.46 [facility] Comment on above: Order Comment: Speci men Type: BLOOD SPECIMENOrdering Facility: [facility] Address: [address] [place] [address] Performed By: #### 5 7021-8 ####[facility] LABCLIA [id number] [place] [address] Eosinophils/100 WBC (Bld) 1.1 % [facility] Comment on above: Order Comment: Speci men Type: BLOOD SPECIMENOrdering Facility: [facility] Address: [address] [place] [address] Performed By: #### 5 7021-8 ####[facility] LABCLIA [id number] [place] [address] Erythrocyte distribution width (RBC) [Ratio] 14.5 % Normal 11.5-15.0 [facility] Comment on above: Order Comment: Speci men Type: BLOOD SPECIMENOrdering Facility: [facility] Address: [address] [place] [address] Performed By: #### 5 7021-8 ####[facility] LABCLIA [id number] [place] [address] Hematocrit (Bld) [Volume fraction] 40.5 % Normal 36.0-46.0 [facility] Comment on above: Order Comment: Speci men Type: BLOOD SPECIMENOrdering Facility: [facility] Address: [address] [place] [address] Performed By: #### 5 7021-8 ####[facility] LABCLIA [id number] [place] [address] Hemoglobin (Bld) [Mass/Vol] 13.1 g/dL Normal 11.5-15.5 [facility] Comment on above: Order Comment: Speci men Type: BLOOD SPECIMENOrdering Facility: [facility] Address: [address] [place] [address] Performed By: #### 5 7021-8 ####[facility] LABCLIA [id number] [place] [address] Immature granulocytes (Bld) [#/Vol] 0.20 10*3/uL High <0.10 [facility] Comment on above: Order Comment: Speci men Type: BLOOD SPECIMENOrdering Facility: [facility] Address: [address] [place] [address] Performed By: #### 5 7021-8 ####[facility] LABCLIA [id number] [place] [address] Immature granulocytes/100 WBC (Bld) 1.6 % Normal [facility] Comment on above: Order Comment: Speci men Type: BLOOD SPECIMENOrdering Facility: [facility] Address: [address] [place] [address] Performed By: #### 5 7021-8 ####[facility] LABCLIA [id number] [place] [address] Lymphocytes (Bld) [#/Vol] 4.13 10*3/uL High 1.00-4.00 [facility] Comment on above: Order Comment: Speci men Type: BLOOD SPECIMENOrdering Facility: [facility] Address: [address] [place] [address] Performed By: #### 5 7021-8 ####[facility] LABCLIA [id number] [place] [address] Lymphocytes/100 WBC (Bld) 32.1 % Normal [facility] Comment on above: Order Comment: Speci men Type: BLOOD SPECIMENOrdering Facility: [facility] Address: [address] [place] [address] Performed By: #### 5 7021-8 ####[facility] LABCLIA [id number] [place] [address] MCH (RBC) [Entitic mass] 30.8 pg Normal 26.0-34.0 [facility] Comment on above: Order Comment: Speci men Type: BLOOD SPECIMENOrdering Facility: [facility] Address: [address] [place] [address] Performed By: #### 5 7021-8 ####[facility] LABCLIA [id number] [place] [address] MCHC (RBC) [Mass/Vol] 32.3 g/dL Normal 30.5-36.0 [facility] Comment on above: Order Comment: Speci men Type: BLOOD SPECIMENOrdering Facility: [facility] Address: [address] [place] [address] Performed By: #### 5 7021-8 ####[facility] LABCLIA [id number] [place] [address] MCV (RBC) [Entitic vol] 95.1 fL Normal 80.0-100.0 [facility] Comment on above: Order Comment: Speci men Type: BLOOD SPECIMENOrdering Facility: [facility] Address: [address] [place] [address] Performed By: #### 5 7021-8 ####[facility] LABCLIA [id number] [place] [address] Monocytes (Bld) [#/Vol] 0.79 10*3/uL Normal <0.87 [facility] Comment on above: Order Comment: Speci men Type: BLOOD SPECIMENOrdering Facility: [facility] Address: [address] [place] [address] Performed By: #### 5 7021-8 ####[facility] LABCLIA [id number] [place] [address] Monocytes/100 WBC (Bld) 6.1 % Normal [facility] Comment on above: Order Comment: Speci men Type: BLOOD SPECIMENOrdering Facility: [facility] Address: [address] [place] [address] Performed By: #### 5 7021-8 ####[facility] LABCLIA [id number] [place] [address] Neutrophils (Bld) [#/Vol] 7.56 10*3/uL High 1.45-7.50 [facility] Comment on above: Order Comment: Speci men Type: BLOOD SPECIMENOrdering Facility: [facility] Address: [address] [place] [address] Performed By: #### 5 7021-8 ####[facility] LABCLIA [id number] [place] [address] Neutrophils/100 WBC (Bld) 58.7 % Normal [facility] Comment on above: Order Comment: Speci men Type: BLOOD SPECIMENOrdering Facility: [facility] Address: [address] [place] [address] Performed By: #### 5 7021-8 ####[facility] LABCLIA [id number] [place] [address] Nucleated RBC (Bld) [#/Vol] 10*3/uL Normal <0.01 [facility] Comment on above: Order Comment: Speci men Type: BLOOD SPECIMENOrdering Facility: [facility] Address: [address] [place] [address] Performed By: #### 5 7021-8 ####[facility] LABCLIA [id number] [place] [address] Nucleated RBC/100 WBC (Bld) [Ratio] 0.0 /100 WBC Normal [facility] Comment on above: Order Comment: Speci men Type: BLOOD SPECIMENOrdering Facility: [facility] Address: [address] [place] [address] Performed By: #### 5 7021-8 ####[facility] LABCLIA [id number] [place] [address] Platelet mean volume (Bld) [Entitic vol] 9.7 fL Normal 9.0-12.7 [facility] Comment on above: Order Comment: Speci men Type: BLOOD SPECIMENOrdering Facility: [facility] Address: [address] [place] [address] Performed By: #### 5 7021-8 ####[facility] LABCLIA [id number] [place] [address] Platelets (Bld) [#/Vol] 261 10*3/uL Normal 150-400 [facility] Comment on above: Order Comment: Speci men Type: BLOOD SPECIMENOrdering Facility: [facility] Address: [address] [place] [address] Performed By: #### 5 7021-8 ####[facility] LABCLIA [id number] [place] [address] RBC (Bld) [#/Vol] 4.26 10*6/uL Normal 3.90-5.20 [facility] Comment on above: Order Comment: Speci men Type: BLOOD SPECIMENOrdering Facility: [facility] Address: [address] [place] [address] Performed By: #### 5 7021-8 ####[facility] LABCLIA [id number] [place] [address] WBC (Bld) [#/Vol] 12.87 10*3/uL High 3.70-11.00 [facility] Comment on above: Order Comment: Speci men Type: BLOOD SPECIMENOrdering Facility: [facility] Address: [address] [place] [address] Performed By: #### 5 7021-8 ####[facility] LABCLIA [id number] [place] [address] Comprehensive metabolic 2000 panelon 06-03-2023 Albumin [Mass/Vol] 4.0 g/dL Normal 3.9-4.9 [facility] Comment on above: Order Comment: Speci men Type: BLOOD SPECIMENOrdering Facility: [facility] Address: [address] [place] [address] Performed By: #### 2 4323-8 ####[facility] LABCLIA [id number] [place] [address] ALP [Catalytic activity/Vol] 73 U/L Normal 34-123 [facility] Comment on above: Order Comment: Speci men Type: BLOOD SPECIMENOrdering Facility: [facility] Address: [address] [place] [address] Performed By: #### 2 4323-8 ####[facility] LABCLIA [id number] [place] [address] ALT [Catalytic activity/Vol] 21 U/L Normal 7-38 [facility] Comment on above: Order Comment: Speci men Type: BLOOD SPECIMENOrdering Facility: [facility] Address: [address] [place] [address] Performed By: #### 2 4323-8 ####[facility] LABCLIA [id number] [place] [address] Anion gap [Moles/Vol] 10 mmol/L Normal 9-18 [facility] Comment on above: Order Comment: Speci men Type: BLOOD SPECIMENOrdering Facility: [facility] Address: [address] [place] [address] Performed By: #### 2 4323-8 ####[facility] LABCLIA [id number] [place] [address] AST [Catalytic activity/Vol] 10 U/L Low 13-35 [facility] Comment on above: Order Comment: Speci men Type: BLOOD SPECIMENOrdering Facility: [facility] Address: [address] [place] [address] Performed By: #### 2 4323-8 ####[facility] LABCLIA [id number] [place] [address] Bilirubin [Mass/Vol] 0.2 mg/dL Normal 0.2-1.3 [facility] Comment on above: Order Comment: Speci men Type: BLOOD SPECIMENOrdering Facility: [facility] Address: [address] [place] [address] Performed By: #### 2 4323-8 ####[facility] LABCLIA [id number] [place] [address] Calcium [Mass/Vol] 9.6 mg/dL Normal 8.5-10.2 [facility] Comment on above: Order Comment: Speci men Type: BLOOD SPECIMENOrdering Facility: [facility] Address: [address] [place] [address] Performed By: #### 2 4323-8 ####[facility] LABCLIA [id number] [place] [address] Chloride [Moles/Vol] 108 mmol/L High 97-105 [facility] Comment on above: Order Comment: Speci men Type: BLOOD SPECIMENOrdering Facility: [facility] Address: [address] [place] [address] Performed By: #### 2 4323-8 ####[facility] LABCLIA [id number] [place] [address] CO2 [Moles/Vol] 24 mmol/L Normal 22-30 [facility] Comment on above: Order Comment: Speci men Type: BLOOD SPECIMENOrdering Facility: [facility] Address: [address] [place] [address] Performed By: #### 2 4323-8 ####[facility] LABCLIA [id number] [place] [address] Creatinine [Mass/Vol] 0.70 mg/dL Normal 0.58-0.96 [facility] Comment on above: Order Comment: Speci men Type: BLOOD SPECIMENOrdering Facility: [facility] Address: [address] [place] [address] Performed By: #### 2 4323-8 ####[facility] LABCLIA [id number] [place] [address] Creatinine and Glomerular filtration rate.predicted panel (S/P/Bld) 111 mL/min/1.73m??? Normal >=60 [facility] Comment on above: Order Comment: Speci men Type: BLOOD SPECIMENOrdering Facility: [facility] Address: [address] [place] [address] Result Comment: Erin mated Glomerular Filtration Rate [...] 4323-8 ####[facility] LABCLIA [id number] [place] [address] Glucose [Mass/Vol] 106 mg/dL High 74-99 [facility] Comment on above: Order Comment: Speci men Type: BLOOD SPECIMENOrdering Facility: [facility] Address: [address] [place] [address] Result Comment: The [place] [employer] (ADA) provides guidance for cutoff [...] Standards of Medical Care in Diabetes 2016, [place] [employer]. Diabetes Care. 2016.39(Suppl 1). Performed By: #### 2 4323-8 ####[facility] LABCLIA [id number] [place] [address] Potassium [Moles/Vol] 4.0 mmol/L Normal 3.7-5.1 [facility] Comment on above: Order Comment: Speci men Type: BLOOD SPECIMENOrdering Facility: [facility] Address: [address] [place] [address] Performed By: #### 2 4323-8 ####[facility] LABCLIA [id number] [place] [address] Protein [Mass/Vol] 6.8 g/dL Normal 6.3-8.0 [facility] Comment on above: Order Comment: Speci men Type: BLOOD SPECIMENOrdering Facility: [facility] Address: [address] [place] [address] Performed By: #### 2 4323-8 ####[facility] LABCLIA [id number] [place] [address] Sodium [Moles/Vol] 142 mmol/L Normal 136-144 [facility] Comment on above: Order Comment: Speci men Type: BLOOD SPECIMENOrdering Facility: [facility] Address: [address] [place] [address] Performed By: #### 2 4323-8 ####[facility] LABCLIA [id number] [place] [address] Urea nitrogen [Mass/Vol] 12 mg/dL Normal 7-21 [facility] Comment on above: Order Comment: Speci men Type: BLOOD SPECIMENOrdering Facility: [facility] Address: [address] [place] [address] Performed By: #### 2 4323-8 ####[facility] LABCLIA [id number] [place] [address] ESR Westergren method (Bld) [Velocity]on 06-03-2023 ESR (Bld) [Velocity] 35 mm/h High 0-20 [facility] Comment on above: Order Comment: Speci men Type: BLOOD SPECIMENOrdering Facility: [facility] Address: [address] [place] [address] Performed By: #### 4 537-7 ####[facility] LABIA [id number] [place] [address] [place] Ferritin SerPl-mCncon 2023 Ferritin [Mass/Vol] 23.4 ng/mL Normal 14.7-205.1 [facility] Comment on above: Order Comment: Speci men Type: BLOOD SPECIMENOrdering Facility: [facility] Address: [address] [place] [address] Performed By: #### 2 132-9, 2276-4, 2284-8, 07062-1 ####[facility] LABIA [id number] [place] [address] [place] Folate SerPl-mCncon 06-03-19 Folate [Mass/Vol] 8.2 ng/mL Normal >4.7 [facility] Comment on above: Order Comment: Speci men Type: BLOOD SPECIMENOrdering Facility: [facility] Address: [address] [place] [address] Performed By: #### 2 132-9, 2276-4, 2284-8, 40073-4 ####[facility] LABCLIA [id number] [place] [address] [place] Iron and Iron binding capaci ty panelon 06-03-2023 Iron [Mass/Vol] 67 ug/dL Normal 41-186 [facility] Comment on above: Order Comment: Speci men Type: BLOOD SPECIMENOrdering Facility: [facility] Address: [address] [place] [address] Performed By: #### 2 132-9, 2276-4, 4-8, 39290-7 ####[facility] LABCLIA [id number] [place] [address] [place] Iron binding capacity [Mass/Vol] 395 ug/dL High 232-386 [facility] Comment on above: Order Comment: Speci men Type: BLOOD SPECIMENOrdering Facility: [facility] Address: [address] [place] [address] Performed By: #### 2 132-9, 6-4, 2284-8, 05035-6 ####[facility] LABIA [id number] [place] [address] [place] Iron/TIBC [Molar ratio] 17.0 % Normal 15.0-57.0 [facility] Comment on above: Order Comment: Speci men Type: BLOOD SPECIMENOrdering Facility: [facility] Address: [address] [place] [address] Performed By: #### 2 132-9, 2276-4, 2284-8, 37075-8 ####[facility] LABIA [id number] [place] [address] [place] Vit B12 SerPl-[facility] Foundationon 024 Cobalamin (Vitamin B12) [Mass/Vol] 428 pg/mL Normal 232-1245 [facility] Comment on above: Order Comment: Speci men Type: BLOOD SPECIMENOrdering Facility: [facility] Address: [address] [facility] [place] [address] Performed By: #### 2 132-9, 2276-4, 2284-8, 42502-0 ####[facility] LABCLIA [id number] RUCHI BERRIOS [id number] [place] [address] [place] CNNURSEon 05-10-2023 CNNURSE Normal [facility] XR CERVICAL SPINE COMPLETE 4 -5 [...] Normal Not Available CNPNon 04-22-2023 CNPN Normal [facility] CNNURSEon 04-16-2023 CNNURSE Normal [facility] CNOVSPon 04-16-2023 CNOVSP Normal [facility] CBC AUTO DIFFon 09-24-2022 BASO # 0.1 103/ul Normal 0.0-0.1 [facility] Comment on above: Performed By: #### U AMIC #### [facility] [address] [address] [address] Manda York Basophils/100 WBC (Bld) 0.6 % Normal 0.2-2.0 [facility] Comment on above: Performed By: #### U AMIC #### [facility] [address] [address] [address] Manda York EO # 0.1 103/ul Normal 0.0-0.7 [facility] Comment on above: Performed By: #### U AMIC #### [facility] [address] [address] [address] Manda York Eosinophils/100 WBC (Bld) 0.6 % Critically low 0.9-7.0 [facility] Comment on above: Performed By: #### U AMIC #### [facility] [address] [address] [address] Manda York Erythrocyte distribution width (RBC) [Ratio] 14.6 % Normal 11.0-15.0 [facility] Comment on above: Performed By: #### U AMIC #### [facility] [address] [address] [address] Manda York Hematocrit (Bld) [Volume fraction] 43.4 % Normal 36.0-48.0 [facility] Comment on above: Performed By: #### U AMIC #### [facility] [address] [address] [address] Manda York Hemoglobin (Bld) [Mass/Vol] 13.7 g/dL Normal 12.0-16.0 [facility] Comment on above: Performed By: #### U AMIC #### [facility] [address] [address] [address] Manda York IG # 0.12 10e3/ul Critically high 0.00-0.03 [facility] Comment on above: Performed By: #### U AMIC #### [facility] [address] [address] [address] Manda York IG % 0.8 % Critically high 0.0-0.5 [facility] Comment on above: Performed By: #### U AMIC #### [facility] [address] [address] [address] Manda York LYMPH # 2.6 103/ul Normal 1.2-3.8 [facility] Comment on above: Performed By: #### U AMIC #### [facility] [address] [place] [address] Dr. Manda York Lymphocytes/100 WBC (Bld) 18.3 % Critically low 20.5-60.0 [facility] Comment on above: Performed By: #### U AMIC #### [facility] [address] [address] [address] Manda York MANUAL DIFF REQ NO Normal [facility] Comment on above: Performed By: #### U AMIC #### [facility] [address] [place] [address] Dr. Manda York MCH (RBC) [Entitic mass] 29.0 pg Normal 26.7-34.0 [facility] Comment on above: Performed By: #### U AMIC #### [facility] [address] [address] [address] Manda York MCHC (RBC) [Mass/Vol] 31.6 g/dL Normal 29.9-35.2 [facility] Comment on above: Performed By: #### U AMIC #### [facility] [address] [place] [address] Dr. Manda York MCV (RBC) [Entitic vol] 91.8 fL Normal 81.0-99.0 [facility] Comment on above: Performed By: #### U AMIC #### [facility] [address] [address] [address] Manda York MONO # 0.7 103/ul Normal 0.3-0.8 [facility] Comment on above: Performed By: #### U AMIC #### [facility] [address] [address] [address] Manda York Monocytes/100 WBC (Bld) 5.1 % Normal 1.7-12.0 [facility] Comment on above: Performed By: #### U AMIC #### [facility] [address] [address] [address] Manda York NEUT # 10.6 103/ul Critically high 1.4-6.5 [facility] Comment on above: Performed By: #### U AMIC #### [facility] [address] [place] [address] Dr. Manda York Neutrophils/100 WBC (Bld) 74.6 % Normal 43.0-75.0 [facility] Comment on above: Performed By: #### U AMIC #### [facility] [address] [address] [address] Manda York Platelet mean volume (Bld) [Entitic vol] 9.4 fL Critically low 9.5-13.5 [facility] Comment on above: Performed By: #### U AMIC #### [facility] [address] [place] [address] Dr. Manda York PLT 307 103/ul Normal 150-450 [facility] Comment on above: Performed By: #### U AMIC #### [facility] [address] [place] [address] Dr. Manda York RBC 4.73 106/ul Normal 4.20-5.40 [facility] Comment on above: Performed By: #### U AMIC #### [facility] [address] [place] [address] Dr. Manda York WBC 14.2 103/ul Critically high 4.0-11.0 [facility] Comment on above: Performed By: #### U AMIC #### [facility] [address] [address] [address] Manda York FREE T4on 09-24-2022 Free T4 [Mass/Vol] 1.31 ng/dL Normal 0.76-1.46 [facility] Comment on above: Performed By: #### F T4 #### [facility] [address] [place] [address] Dr. Manda York GLYCOHEMOGLOBIN A1Con 2022 ADA RECOMMENDATION SEE BELOW Normal [facility] Comment on above: Result Comment: ADA RECOMMENDED LIMIT 4.0 - 6.0 ADA THERAPEUTIC TARGET < 7.0 ACTION SUGGESTED > 7.0 Performed By: #### A 1C #### [facility] [address] [place] [address] Dr. Manda York Glucose [Mass/Vol] 120 mg/dL Normal [facility] Comment on above: Performed By: #### A 1C #### [facility] [address] [place] [address] Dr. Manda York HbA1c (Bld) [Mass fraction] 5.8 % Normal 4.5-6.2 [facility] Comment on above: Performed By: #### A 1C #### [facility] [address] [place] [address] Dr. Manda York PREG QUANT HCGon 09-24-2022 HCG QUANT <1 Normal [facility] Comment on above: Performed By: #### F T4 #### [facility] [address] [place] [address] Dr. Manda York HCG RANGE SEE BELOW Normal [facility] Comment on above: Result Comment: 5-50 0.2-1 WEEK 50-500 1-2 WEEKS 100-5,000 2-3 WEEKS 500-10,000 3-4 WEEKS 1,000-50,000 4-5 WEEKS 10,000-100,000 5-6 WEEKS 15,000-200,000 6-8 WEEKS 10,000-100,000 2-3 MONTHS Performed By: #### F T4 #### [facility] [address] [place] [address] Dr. Manda York PROTIMEon 09-24-2022 INR Coag (PPP) [Relative time] {INR} Normal [facility] Comment on above: Performed By: #### F T4 #### [facility] [address] [address] [address] Manda York INR GUIDELINES SEE BELOW Normal [facility] Comment on above: Result Comment: SHERRY RED INR: 2.0 - 3.0 CONDITIONS NOT LISTED BELOW 2.5 - 3.5 FOR PROSTHETIC HEART VALVE REPLACEMENT 2.5 - 3.5 RECURRENT THROMBOSIS Performed By: #### F T4 #### [facility] [address] [address] [address] Manda York PT Coag (PPP) [Time] 9.6 s Normal 9.0-11.6 [facility] Comment on above: Performed By: #### F T4 #### [facility] [address] [place] [address] Dr. Manda York PTTon 09-24-2022 aPTT Coag (Bld) [Time] 28.2 s Normal 22.3-36.2 [facility] Comment on above: Performed By: #### F T4 #### [facility] [address] [place] [address] Dr. Manda York TSHon 09-24-2022 TSH 0.300 uIU/mL Critically low 0.358-3.740 [facility] Comment on above: Performed By: #### F T4 #### [facility] [address] [place] [address] Dr. Manda York US PELVIS TRANSVAGon 023 US PELVIS TRANSVAG EXAMINATION: US PELVIS TRANSVAG HISTORY: Excessive menstruation with irregular cycle [...] by: AURORA SHAIKH Date: 2022-09-24 17:50 Normal [facility] PAP ACOG PANEL 2: 30 to 65on 09-18-2022 . . Normal [facility] Comment on above: Result Comment: Perf ormed at: WB Performed By: #### F T4 #### [facility] [address] [address] [address] Manda York Age Gdln ACOG Testing 30-65 Normal [facility] Comment on above: Performed By: #### F T4 #### [facility] [address] [address] [address] Manda York DIAGNOSIS: Comment Normal [facility] Comment on above: Result Comment: NEGA TIVE FOR INTRAEPITHELIAL LESION OR MALIGNANCY. Performed at: WB Performed By: #### F T4 #### [facility] [address] [address] [address] Manda York HPV Aptima Negative Normal Negative [facility] Comment on above: Result Comment: This nucleic acid amplification test detects fourteen high-risk HPV types (16,18,31,33,35,39,45,51,52,56,58,59,66,68) without differentiation. Performed at: =G Performed By: #### F T4 #### [facility] [address] [address] [address] Manda York HPV Genotype Reflex Comment Normal [facility] Comment on above: Result Comment: Crit eria not met, HPV Genotype not performed. Performed at: WB Performed By: #### F T4 #### [facility] [id number] Manda York Methodology: Comment Normal [facility] Comment on above: Result Comment: This liquid based ThinPrep(R) pap test was screened with the use of an image guided system. Performed at: WB Performed By: #### F T4 #### [facility] [address] [address] [address] Manda York Note: Comment Normal [facility] Comment on above: Result Comment: The [...] WB Performed By: #### F T4 #### [facility] [address] [address] [address] Manda York Performed by: Comment Normal [facility] Comment on above: Result Comment: Lorena Peters, Supervisor [employer] (ASCP) Performed at: WB Performed By: #### F T4 #### [facility] [address] [address] [address] Manda York Specimen adequacy: Comment Normal [facility] Comment on above: Result Comment: Sati sfactory for evaluation. Endocervical and/or squamous metaplastic cells (endocervical component) are present. Performed at: WB Performed By: #### F T4 #### [facility] [address] [address] [address] Manda York Cytology Cervical or vaginal smear or scraping studyOrdered By: Hazel Torres on 09-10-[address] [facility] MG MAMM SCREEN 3D MARK CADon 09-01-2022 MG MAMM SCREEN 3D MARK CAD Patient: JONES HALEY Exam Date: 09/01/2022 : 1980 Gender:F Ordering : DR MADELAINE FERRIS . Admission #: [id number] Family : Order #: [id number] CLICK HERE TO VIEW EXAM RADIOLOGY REPORT [...] stomach cancer at age 56. LOCATION: [facility] BREAST COMPOSITION: Scattered areas fibroglandular density. [...] Yusuf M.D. on 09/02/2022 at 12:32 Normal [facility] MRI KNEE RT WO CONon 11-09-2 022 MRI KNEE RT WO CON HISTORY: [...] MADELAINE GOMEZ Date: 2022-04-01 08:24 Normal [facility] PNEUMOCOCCAL IGG ABS, 23 SER OTYPESon 03-21-2022 Pneumococcal Interpretation See Note [facility] S. pneumoniae 1 IgG (S) [Mass/Vol] 0.27 ug/mL [facility] S. pneumoniae 12 IgG (S) [Mass/Vol] 0.08 ug/mL [facility] S. pneumoniae 14 IgG (S) [Mass/Vol] 0.19 ug/mL [facility] S. pneumoniae 17 IgG (S) [Mass/Vol] 1.72 ug/mL [facility] S. pneumoniae 19 IgG (S) [Mass/Vol] 1.52 ug/mL [facility] S. pneumoniae 2 IgG (S) [Mass/Vol] 0.44 ug/mL [facility] S. pneumoniae 20 IgG (S) [Mass/Vol] 1.53 ug/mL [facility] S. pneumoniae 22 IgG (S) [Mass/Vol] 0.99 ug/mL [facility] S. pneumoniae 23 IgG (S) [Mass/Vol] 0.14 ug/mL [facility] S. pneumoniae 3 IgG (S) [Mass/Vol] 0.36 ug/mL [facility] S. pneumoniae 34 IgG (S) [Mass/Vol] 5.77 ug/mL [facility] S. pneumoniae 4 IgG (S) [Mass/Vol] 0.06 ug/mL [facility] S. pneumoniae 43 IgG (S) [Mass/Vol] 0.93 ug/mL [facility] S. pneumoniae 5 IgG (S) [Mass/Vol] 0.89 ug/mL [facility] S. pneumoniae 8 IgG (S) [Mass/Vol] 0.58 ug/mL [facility] S. pneumoniae 9 IgG (S) [Mass/Vol] 0.4 ug/mL [facility] S. pneumoniae Senegalese type 15B IgG (S) [Mass/Vol] 8.27 ug/mL [facility] S. pneumoniae Senegalese type 18C IgG (S) [Mass/Vol] 0.39 ug/mL [facility] S. pneumoniae Senegalese type 19A IgG (S) [Mass/Vol] 17.72 ug/mL [facility] S. pneumoniae Senegalese type 33F IgG (S) [Mass/Vol] 3.04 ug/mL [facility] S. pneumoniae Senegalese type 6B IgG (S) [Mass/Vol] 0.82 ug/mL [facility] S. pneumoniae Senegalese type 7F IgG (S) [Mass/Vol] 0.34 ug/mL [facility] S. pneumoniae Senegalese type 9V IgG (S) [Mass/Vol] 0.78 ug/mL [facility] XR KNEE RT 4V or >on [...] by: KRISTINA GARRETT Date: 2022-03-21 16:47 Normal [facility] DIPHTHER/TETANUS ABon 2021 C. diphtheriae IgG Qn (S) 0.1 IU/mL [facility] C. tetani toxoid IgG IA Qn 1 IU/mL [facility] IGA BLDon 03-18-2022 IgA [Mass/Vol] 182 mg/dL 70 - 400 mg/dL [facility] IGE BLDon 03-18-2022 IgE Qn 12.3 kU/l <114.0 kU/l [facility] IGGon 03-18-2022 IgG [Mass/Vol] 618 mg/dL Low 700 - 1,600 mg/dL [facility] IGMon 03-18-2022 IgM [Mass/Vol] 514 mg/dL High 40 - 230 mg/dL [facility] Immunodeficiency panel FC (B ld)on 03-18-2022 CD3 cells (Bld) [#/Vol] 2841 cells/uL High 958 - 2,388 cells/uL [facility] CD3 cells/100 cells (Bld) 81 % 60 - 89 % [facility] CD3+CD4+ (T4 helper) cells (Bld) [#/Vol] 1621 cells/uL 533 - 1,674 cells/uL [facility] CD3+CD4+ (T4 helper) cells/100 cells (Bld) 46 % 34 - 61 % [facility] CD3+CD4+ (T4 helper) cells/CD3+CD8+ (T8 suppressor cells) cells (Bld) [# ratio] 1.55 % 1.10 - 3.25 [facility] CD3+CD8+ (T8 suppressor cells) cells (Bld) [#/Vol] 1049 cells/uL High 175 - 958 cells/uL [facility] CD3+CD8+ (T8 suppressor cells) cells/100 cells (Bld) 30 % 10 - 41 % [facility] CD3-CD16+CD56+ (Natural killer) cells (Bld) [#/Vol] 193 cells/uL 102 - 565 cells/uL [facility] CD3-CD16+CD56+ (Natural killer) cells/100 cells (Bld) 5 % 5 - 25 % [facility] CD3-CD19+ cells (Bld) [#/Vol] 475 cells/uL 75 - 660 cells/uL [facility] CD3-CD19+ cells/100 cells (Bld) 13 % 5 - 22 % [facility] CBC W Auto Differential pane l (Bld)on 03-17-2022 Basophils (Bld) [#/Vol] 0.07 10*3/uL <0.11 k/uL [facility] Basophils/100 WBC (Bld) 0.6 % [facility] Differential cell count method Nom (Bld) Auto [facility] Eosinophils (Bld) [#/Vol] 0.18 10*3/uL <0.46 k/uL [facility] Eosinophils/100 WBC (Bld) 1.6 % [facility] Erythrocyte distribution width (RBC) [Ratio] 14.6 % 11.5 - 15.0 % [facility] Hematocrit (Bld) [Volume fraction] 40.5 % 36.0 - 46.0 % [facility] Hemoglobin (Bld) [Mass/Vol] 13.0 g/dL 11.5 - 15.5 g/dL [facility] Immature granulocytes (Bld) [#/Vol] 0.06 10*3/uL <0.10 k/uL [facility] Immature granulocytes/100 WBC (Bld) 0.5 % [facility] Lymphocytes (Bld) [#/Vol] 2.97 10*3/uL 1.00 - 4.00 k/uL [facility] Lymphocytes/100 WBC (Bld) 26.9 % [facility] MCH (RBC) [Entitic mass] 28.4 pg 26.0 - 34.0 pg [facility] MCHC (RBC) [Mass/Vol] 32.1 g/dL 30.5 - 36.0 g/dL [facility] MCV (RBC) [Entitic vol] 88.4 fL 80.0 - 100.0 fL [facility] Monocytes (Bld) [#/Vol] 0.79 10*3/uL <0.87 k/uL [facility] Monocytes/100 WBC (Bld) 7.2 % [facility] Neutrophils (Bld) [#/Vol] 6.97 10*3/uL 1.45 - 7.50 k/uL [facility] Neutrophils/100 WBC (Bld) 63.2 % [facility] Nucleated RBC (Bld) [#/Vol] <0.01 k/uL [facility] Nucleated RBC/100 WBC (Bld) [Ratio] 0.0 /100 WBC [facility] Platelet mean volume (Bld) [Entitic vol] 9.9 fL 9.0 - 12.7 fL [facility] Platelets (Bld) [#/Vol] 314 10*3/uL 150 - 400 k/uL [facility] RBC (Bld) [#/Vol] 4.58 10*6/uL 3.90 - 5.2 0 m/uL [facility] WBC (Bld) [#/Vol] 11.04 10*3/uL High 3.70 - 11 .00 k/uL [facility] ECHOCARDIO M/2D COMPLETEon 1 ECHOCARDIO M/2D COMPLETE Patient: JONES HALEY Exam Date: 03/12/2022 : 1980 Gender:F Ordering : DR MADELAINE FERRIS . Admission #: [id number] Family : Order #: [id number] CLICK HERE TO VIEW EXAM ECHOCARDIOGRAM REPORT [...] M.D. on 03/16/2022 at 16:47 Normal [facility] INSULINon 03-11-2022 Insulin 17.8 uIU/mL Normal 2.6-24.9 [facility] Comment on above: Performed By: #### C BC #### [facility] [address] [address] [address] Manda York CBC AUTO DIFFon 03-09-2022 BASO # 0.1 103/ul Normal 0.0-0.1 [facility] Comment on above: Performed By: #### C BC #### [facility] [address] [address] [address] Manda York Basophils/100 WBC (Bld) 0.4 % Normal 0.2-2.0 [facility] Comment on above: Performed By: #### C BC #### [facility] [address] [address] [address] Manda York EO # 0.2 103/ul Normal 0.0-0.7 [facility] Comment on above: Performed By: #### C BC #### [facility] [address] [place] [address] Dr. Manda York Eosinophils/100 WBC (Bld) 1.2 % Normal 0.9-7.0 [facility] Comment on above: Performed By: #### C BC #### [facility] [address] [place] [address] Dr. Manda York Erythrocyte distribution width (RBC) [Ratio] 14.6 % Normal 11.0-15.0 [facility] Comment on above: Performed By: #### C BC #### [facility] [address] [place] [address] Dr. Manda York Hematocrit (Bld) [Volume fraction] 39.2 % Normal 36.0-48.0 [facility] Comment on above: Performed By: #### C BC #### [facility] [address] [place] [address] Dr. Manda York Hemoglobin (Bld) [Mass/Vol] 12.7 g/dL Normal 12.0-16.0 [facility] Comment on above: Performed By: #### C BC #### [facility] [address] [place] [address] Dr. Manda York IG # 0.06 10e3/ul Critically high 0.00-0.03 [facility] Comment on above: Performed By: #### C BC #### [facility] [address] [place] [address] Dr. Manda York IG % 0.5 % Normal 0.0-0.5 [facility] Comment on above: Performed By: #### C BC #### [facility] [address] [place] [address] Dr. Manda York LYMPH # 3.7 103/ul Normal 1.2-3.8 [facility] Comment on above: Performed By: #### C BC #### [facility] [address] [address] [address] Manda York Lymphocytes/100 WBC (Bld) 31.0 % Normal 20.5-60.0 [facility] Comment on above: Performed By: #### C BC #### [facility] [address] [address] [address] Manda York MANUAL DIFF REQ NO Normal [facility] Comment on above: Performed By: #### C BC #### [facility] [address] [place] [address] Dr. Manda York MCH (RBC) [Entitic mass] 28.9 pg Normal 26.7-34.0 [facility] Comment on above: Performed By: #### C BC #### [facility] [address] [place] [address] Dr. Manda York MCHC (RBC) [Mass/Vol] 32.4 g/dL Normal 29.9-35.2 [facility] Comment on above: Performed By: #### C BC #### [facility] [address] [place] [address] Dr. Manda York MCV (RBC) [Entitic vol] 89.1 fL Normal 81.0-99.0 [facility] Comment on above: Performed By: #### C BC #### [facility] [address] [place] [address] Dr. Manda York MONO # 0.7 103/ul Normal 0.3-0.8 [facility] Comment on above: Performed By: #### C BC #### [facility] [address] [place] [address] Dr. Manda York Monocytes/100 WBC (Bld) 5.8 % Normal 1.7-12.0 [facility] Comment on above: Performed By: #### C BC #### [facility] [address] [place] [address] Dr. Manda York NEUT # 7.3 103/ul Critically high 1.4-6.5 [facility] Comment on above: Performed By: #### C BC #### [facility] [address] [address] [address] Manda York Neutrophils/100 WBC (Bld) 61.1 % Normal 43.0-75.0 [facility] Comment on above: Performed By: #### C BC #### [facility] [address] [address] [address] Manda York Platelet mean volume (Bld) [Entitic vol] 9.7 fL Normal 9.5-13.5 [facility] Comment on above: Performed By: #### C BC #### [facility] [address] [address] [address] Manda York PLT 297 103/ul Normal 150-450 [facility] Comment on above: Performed By: #### C BC #### [facility] [address] [place] [address] Dr. Manda York RBC 4.40 106/ul Normal 4.20-5.40 [facility] Comment on above: Performed By: #### C BC #### [facility] [address] [place] [address] Dr. Manda York WBC 12.0 103/ul Critically high 4.0-11.0 [facility] Comment on above: Performed By: #### C BC #### [facility] [address] [place] [address] Dr. Manda York FREE THYROXINE INDEX T7on FTI 3.81 Normal 1.30-4.50 [facility] Comment on above: Performed By: #### U AMIC #### [facility] [address] [place] [address] Dr. Manda York T3U 34.0 % Normal 30.0-39.0 [facility] Comment on above: Performed By: #### U AMIC #### [facility] [address] [place] [address] Dr. Manda York T4 [Mass/Vol] 11.20 ug/dL Normal 4.80-13.90 [facility] Comment on above: Performed By: #### U AMIC #### [facility] [address] [place] [address] Dr. Manda York GLYCOHEMOGLOBIN A1Con 2021 ADA RECOMMENDATION SEE BELOW Normal [facility] Comment on above: Result Comment: ADA RECOMMENDED LIMIT 4.0 - 6.0 ADA THERAPEUTIC TARGET < 7.0 ACTION SUGGESTED > 7.0 Performed By: #### S LUIGI MELO #### [facility] [address] [address] [address] Manda York Glucose [Mass/Vol] 117 mg/dL Normal [facility] Comment on above: Performed By: #### S LORIE THYLC #### [facility] [address] [address] [address] Manda York HbA1c (Bld) [Mass fraction] 5.7 % Normal 4.5-6.2 [facility] Comment on above: Performed By: #### S LEANN MELOC #### [facility] [address] [address] [address] Manda York IRONon 03-09-2022 Iron [Mass/Vol] 61.0 ug/dL Normal 50.0-170.[address] [facility] Comment on above: Performed By: #### C BC #### [facility] [address] [address] [address] Manda York LIPID PROFILEon 03-09-2022 CHOL-HDL RATIO NORM SEE BELOW Normal [facility] Comment on above: Result Comment: 3.3 - 4.4 LOW RISK 4.4 - 7.1 AVERAGE RISK 7.1 - 11.0 MODERATE RISK >11.0 HIGH RISK Performed By: #### U AMIC #### [facility] [address] [address] [address] Manda York Cholesterol [Mass/Vol] 260 mg/dL Critically high <=200 [facility] Comment on above: Performed By: #### U AMIC #### [facility] [address] [address] [address] Manda York Cholesterol in HDL [Mass/Vol] 38 mg/dL Critically low 40-60 [facility] Comment on above: Performed By: #### U AMIC #### [facility] [address] [id number] [address] Manda York Cholesterol in LDL [Mass/Vol] 170.8 mg/dL Normal [facility] Comment on above: Performed By: #### U AMIC #### [facility] [id number] Manda York Cholesterol.total/Chol esterol in HDL [Mass ratio] 6.8 {ratio} Normal [facility] Comment on above: Performed By: #### U AMIC #### [facility] [address] [address] [address] Manda York HDL NORMAL > or = 60 mg/dl - LO W CARDIOVASCULAR RISK <40 mg/dl - HIGH CARDIOVASCULAR RISK Normal [facility] Comment on above: Performed By: #### U AMIC #### [facility] [address] [address] [address] Manda York LDL CALC NORMAL SEE BELOW Normal [facility] Comment on above: Result Comment: <100 mg/dl OPTIMAL 100 - 129 mg/dl NEAR OR ABOVE OPTIMAL 130 - 159 mg/dl BORDERLINE HIGH 160 - 189 mg/dl HIGH >190 mg/dl VERY HIGH Performed By: #### U AMIC #### [facility] [address] [address] [address] Manda York Triglyceride [Mass/Vol] 256 mg/dL Critically high <=150 [facility] Comment on above: Performed By: #### U AMIC #### [facility] [address] [address] [address] Manda York VLDL CALC 51.2 mg/dL Normal [facility] Comment on above: Performed By: #### U AMIC #### [facility] [address] [address] [address] Manda York PROF 14(COMP METB)on 022 Albumin [Mass/Vol] 3.8 g/dL Normal 3.4-5.0 [facility] Comment on above: Performed By: #### U AMIC #### [facility] [id number] Manda York Albumin/Globulin [Mass ratio] 1.0 {ratio} Normal [facility] Comment on above: Performed By: #### U AMIC #### [facility] [address] [address] [address] Manda York ALP [Catalytic activity/Vol] 66 U/L Normal 46-116 [facility] Comment on above: Performed By: #### U AMIC #### [facility] [address] [address] [address] Manda York ALT [Catalytic activity/Vol] 27 U/L Normal 14-59 [facility] Comment on above: Performed By: #### U AMIC #### [facility] [address] [address] [address] Manda York Anion gap [Moles/Vol] 11.8 mmol/L Normal [facility] Comment on above: Performed By: #### U AMIC #### [facility] [address] [address] [address] Manda York AST [Catalytic activity/Vol] 9 U/L Critically low 15-37 [facility] Comment on above: Performed By: #### U AMIC #### [facility] [address] [address] [address] Manda York Bilirubin [Mass/Vol] 0.2 mg/dL Normal 0.2-1.0 [facility] Comment on above: Performed By: #### U AMIC #### [facility] [address] [address] [address] Manda York Calcium [Mass/Vol] 9.1 mg/dL Normal 8.5-10.1 [facility] Comment on above: Performed By: #### U AMIC #### [facility] [address] [address] [address] Manda York Chloride [Moles/Vol] 101 mmol/L Normal 98-107 [facility] Comment on above: Performed By: #### U AMIC #### [facility] [address] [address] [address] Manda York CO2 [Moles/Vol] 26.1 mmol/L Normal 21.0-32.0 [facility] Comment on above: Performed By: #### U AMIC #### [facility] [address] [address] [address] Manda York Creatinine [Mass/Vol] 0.80 mg/dL Normal 0.55-1.02 [facility] Comment on above: Performed By: #### U AMIC #### [facility] [address] [address] [address] Manda York EGFR-AF IRANIAN >60 Normal >=60 [facility] Comment on above: Performed By: #### U AMIC #### [facility] [address] [address] [address] Manda York EGFR-NON AF IRANIAN >60 Normal >=60 [facility] Comment on above: Performed By: #### U AMIC #### [facility] [address] [address] [address] Manda York Globulin (S) [Mass/Vol] 3.8 g/dL Normal [facility] Comment on above: Performed By: #### U AMIC #### [facility] [address] [address] [address] Manda York Glucose [Mass/Vol] 93 mg/dL Normal 74-106 [facility] Comment on above: Performed By: #### U AMIC #### [facility] [address] [address] [address] Manda York Potassium [Moles/Vol] 3.9 mmol/L Normal 3.5-5.1 [facility] Comment on above: Performed By: #### U AMIC #### [facility] [address] [address] [address] Manda York Protein [Mass/Vol] 7.6 g/dL Normal 6.4-8.2 [facility] Comment on above: Performed By: #### U AMIC #### [facility] [address] [address] [address] Manda York Sodium [Moles/Vol] 135 mmol/L Critically low 136-145 [facility] Comment on above: Performed By: #### U AMIC #### [facility] [address] [address] [address] Manda York Urea nitrogen [Mass/Vol] 10.0 mg/dL Normal 7.0-18.0 [facility] Comment on above: Performed By: #### U AMIC #### [facility] [address] [address] [address] Manda York Urea nitrogen/Creatinine [Mass ratio] 12.5 mg/mg Normal [facility] Comment on above: Performed By: #### U AMIC #### [facility] [address] [address] [address] Manda York TSHon 03-09-2022 TSH 0.610 uIU/mL Normal 0.358-3.740 [facility] Comment on above: Performed By: #### U AMIC #### [facility] [address] [address] [address] Manda York B2 MICROGLOBULIN [facility] 022 [id number] [Mass/Vol] 1.8 ug/mL 0.8 - 2.4 mg/L [facility] FERRITIN BLDon 03-05-2022 Ferritin [Mass/Vol] 33.2 ng/mL 14.7 - 2 05.1 ng/mL [facility] FOLATE SERUMon 03-05-2022 Folate [Mass/Vol] 6.6 ng/mL >4.7 ng/mL [facility] Iron and Iron binding capaci ty panelon 03-05-2022 Iron [Mass/Vol] 49 ug/dL 41 - 186 ug/dL [facility] Iron binding capacity [Mass/Vol] 392 ug/dL High 232 - 386 ug/dL [facility] Iron/TIBC [Molar ratio] 12.5 % Low 15.0 - 57.0 % [facility] CBC W Auto Differential pane l (Bld)on 03-04-2022 Basophils (Bld) [#/Vol] 0.07 10*3/uL <0.11 k/uL [facility] Basophils/100 WBC (Bld) 0.6 % [facility] Differential cell count method Nom (Bld) Auto [facility] Eosinophils (Bld) [#/Vol] 0.19 10*3/uL <0.46 k/uL [facility] Eosinophils/100 WBC (Bld) 1.7 % [facility] Erythrocyte distribution width (RBC) [Ratio] 14.7 % 11.5 - 15.0 % [facility] Hematocrit (Bld) [Volume fraction] 40.0 % 36.0 - 46.0 % [facility] Hemoglobin (Bld) [Mass/Vol] 13.0 g/dL 11.5 - 15.5 g/dL [facility] Immature granulocytes (Bld) [#/Vol] 0.07 10*3/uL <0.10 k/uL [facility] Immature granulocytes/100 WBC (Bld) 0.6 % [facility] Lymphocytes (Bld) [#/Vol] 3.31 10*3/uL 1.00 - 4.00 k/uL [facility] Lymphocytes/100 WBC (Bld) 30.2 % [facility] MCH (RBC) [Entitic mass] 28.9 pg 26.0 - 34.0 pg [facility] MCHC (RBC) [Mass/Vol] 32.5 g/dL 30.5 - 36.0 g/dL [facility] MCV (RBC) [Entitic vol] 88.9 fL 80.0 - 100.0 fL [facility] Monocytes (Bld) [#/Vol] 0.70 10*3/uL <0.87 k/uL [facility] Monocytes/100 WBC (Bld) 6.4 % [facility] Neutrophils (Bld) [#/Vol] 6.63 10*3/uL 1.45 - 7.50 k/uL [facility] Neutrophils/100 WBC (Bld) 60.5 % [facility] Nucleated RBC (Bld) [#/Vol] <0.01 k/uL [facility] Nucleated RBC/100 WBC (Bld) [Ratio] 0.0 /100 WBC [facility] Platelet mean volume (Bld) [Entitic vol] 9.6 fL 9.0 - 12.7 fL [facility] Platelets (Bld) [#/Vol] 355 10*3/uL 150 - 400 k/uL [facility] RBC (Bld) [#/Vol] 4.50 10*6/uL 3.90 - 5.2 0 m/uL [facility] WBC (Bld) [#/Vol] 10.97 10*3/uL 3.70 - 11 .00 k/uL [facility] Calcium.ionized [Moles/Vol]o n 03-04-2022 Calcium.ionized (Bld) [Mass/Vol] 1.26 mmol/L 1.08 - 1.30 mmol/L [facility] Calcium.ionized adjusted to pH 7.4 (Bld) [Moles/Vol] 1.25 mmol/L 1.08 - 1.30 mmol/L [facility] Comprehensive metabolic 2000 panelon 03-04-2022 Albumin [Mass/Vol] 4.3 g/dL 3.9 - 4.9 g/dL [facility] ALP [Catalytic activity/Vol] 70 U/L 34 - 123 U/L [facility] ALT [Catalytic activity/Vol] 26 U/L 7 - 38 U/L [facility] Anion gap [Moles/Vol] 7 mmol/L Low 9 - 18 mmol/L [facility] AST [Catalytic activity/Vol] 12 U/L Low 13 - 35 U/L [facility] Bilirubin [Mass/Vol] 0.2 mg/dL 0.2 - 1 .3 mg/dL [facility] Calcium [Mass/Vol] 9.3 mg/dL 8.5 - 10. 2 mg/dL [facility] Chloride [Moles/Vol] 103 mmol/L 97 - 10 5 mmol/L [facility] CO2 [Moles/Vol] 28 mmol/L 22 - 30 mmol/L [facility] Creatinine [Mass/Vol] 0.69 mg/dL 0.58 - 0.96 mg/dL [facility] Estimated Glomerular Filtration Rate 112 mL/min/1.73m >=60 mL/min/1.73m [facility] Glucose [Mass/Vol] 100 mg/dL High 74 - 99 mg/dL [facility] Potassium [Moles/Vol] 3.9 mmol/L 3.7 - 5.1 mmol/L [facility] Protein [Mass/Vol] 7.0 g/dL 6.3 - 8.0 g/dL [facility] Sodium [Moles/Vol] 138 mmol/L 136 - 144 mmol/L [facility] Urea nitrogen [Mass/Vol] 12 mg/dL 7 - 21 mg/dL [facility] LD LACTATE DEHYDROon 022 LDH [Catalytic activity/Vol] 135 U/L 135 - 214 U/L [facility] PHOSPHORUS INORGANICon 03-04 Phosphate [Mass/Vol] 3.2 mg/dL 2.7 - 4 .8 mg/dL [facility] URIC ACID BLOODon 03-04-2022 Urate [Mass/Vol] 5.2 mg/dL 2.5 - 6.6 mg/dL [facility] IMMUNOGLOBULINS IGA/IGM/IGG/ IGE QUANTITAon 02-20-2022 Immunoglobulin A, Qn, Serum 189 mg/dL Normal 87-352 [facility] Comment on above: Result Comment: Perf ormed at: CB Performed By: #### Tye MELO THYLC #### [facility] [address] [address] [address] Manda York Immunoglobulin E, Total 10 IU/mL Normal 6-495 [facility] Comment on above: Result Comment: Perf ormed at: BN Performed By: #### Tye MELO THYLC #### [facility] [address] [address] [address] Manda York Immunoglobulin G, Qn, Serum 598 mg/dL Normal 586-1602 [facility] Comment on above: Result Comment: Perf ormed at: CB Performed By: #### Tye MELO THYLC #### [facility] [address] [address] [address] Manda York Immunoglobulin M, Qn, Serum 493 mg/dL Critically high 26-217 [facility] Comment on above: Result Comment: Perf ormed at: CB Performed By: #### Tye MELO THYLC #### [facility] [address] [address] [address] Manda York CHRISTIAN by IFAon 02-19-2022 Antinuclear Antibodies, IFA Negative Normal [facility] Comment on above: Result Comment: Nega tive <1:80 Borderline 1:80 Positive >1:80 ICAP nomenclature: [id number] For more information about Hep-2 cell patterns use ANApatterns.org, the official website for the International Consensus on Antinuclear Antibody (CHRISTIAN) Patterns (ICAP). Performed By: #### Tye MELO THYLC #### [facility] [address] [address] [address] Manda York THYROID ANTIBODIESon 022 Thyroglobulin Antibody <1.0 Normal 0.0-0.9 [facility] Comment on above: Result Comment: Thyr oglobulin Antibody measured by [employer] Methodology Performed By: #### F T4 #### [facility] [address] [place] [address] Dr. Manda York Thyroid Peroxidase (TPO) Ab <8 Normal 0-34 [facility] Comment on above: Performed By: #### F T4 #### [facility] [address] [place] [address] Dr. Manda York PROTEIN ELECTROPHERESISon Albumin [Mass/Vol] 3.2 g/dL Normal 2.9-4.4 [facility] Comment on above: Performed By: #### F T4 #### [facility] [address] [place] [address] Dr. Manda York Albumin/Globulin [Mass ratio] 1.0 {ratio} Normal 0.7-1.7 [facility] Comment on above: Performed By: #### F T4 #### [facility] [address] [place] [address] Dr. Manda York Fcihl-4-Juyqdxvl 0.2 g/dL Normal 0.0-0.4 [facility] Comment on above: Performed By: #### F T4 #### [facility] [address] [place] [address] Dr. Manda York Xuzrk-3-Whywmnkf 0.9 g/dL Normal 0.4-1.0 [facility] Comment on above: Performed By: #### F T4 #### [facility] [address] [place] [address] Dr. Manda York Beta Globulin 1.2 g/dL Normal 0.7-1.3 [facility] Comment on above: Performed By: #### F T4 #### [facility] [address] [place] [address] Dr. Manda York Gamma Globulin 0.9 g/dL Normal 0.4-1.8 [facility] Comment on above: Performed By: #### F T4 #### [facility] [address] [place] [address] Dr. Manda York Globulin (S) [Mass/Vol] 3.2 g/dL Normal 2.2-3.9 [facility] Comment on above: Performed By: #### F T4 #### [facility] [address] [place] [address] Dr. Manda York M-Jose De Jesus Not Observed Normal Not Observed [facility] Comment on above: Performed By: #### F T4 #### [facility] [address] [place] [address] Dr. Manda York PDF . Normal [facility] Comment on above: Performed By: #### F T4 #### [facility] [address] [place] [address] Dr. Manda York Please note: Comment Normal [facility] Comment on above: Result Comment: Prot ein electrophoresis scan will follow via computer, mail, or technical customer support specialist delivery. Performed By: #### F T4 #### [facility] [address] [place] [address] Dr. Manda York Protein [Mass/Vol] 6.4 g/dL Normal 6.0-8.5 [facility] Comment on above: Performed By: #### F T4 #### [facility] [address] [place] [address] Dr. Manda York SLE PROFILE Aon 02-16-2022 Anti-DNA (DS) Ab Qn 9 IU/mL Normal 0-[address] [facility] Comment on above: Result Comment: Nega tive <5 Equivocal 5 - 9 Positive >9 Performed By: #### S LUIGI MELO #### [facility] [address] [place] [address] Dr. Manda York Antichromatin Antibodies <0.2 Normal 0.0-0.9 [facility] Comment on above: Performed By: #### S LEANN MELOC #### [facility] [address] [place] [address] Dr. Manda York RA Latex Turbid. <10.0 Normal <14.0 [facility] Comment on above: Performed By: #### S LEANN MELOC #### [facility] [address] [place] [address] Dr. Manda York TECHNICAL PUBLICATIONS MANAGER Antibodies <0.2 Normal 0.0-0.9 [facility] Comment on above: Performed By: #### S LEANN MELOC #### [facility] [address] [place] [address] Dr. Manda York Sjogryaniv'tye Anti-SS-A <0.2 Normal 0.0-0.9 [facility] Comment on above: Performed By: #### S LEANN MELOC #### [facility] [address] [place] [address] Dr. Manda Solorzanoogryaniv'tye Anti-SS-B <0.2 Normal 0.0-0.[address] [facility] Comment on above: Performed By: #### LEANN PATRICKC #### [facility] [address] [place] [address] Dr. Manda York Schneider Antibodies <0.2 Normal 0.0-0.9 [facility] Comment on above: Performed By: #### S LUIGI MELO #### [facility] [address] [place] [address] Dr. Manda York ANTISTREPTOLYSIN O AB (ASO)o n 02-15-2022 Antistreptolysin O Ab 49.6 IU/mL Normal 0.0-200.0 [facility] Comment on above: Performed By: #### A SOAB #### [facility] [address] [place] [address] Dr. Manda York MICROALBUMIN URINEon 022 Albumin, Urine <3.0 Normal Not Estab. [facility] Comment on above: Result Comment: Ve rified by repeat analysis Performed By: #### C BC #### [facility] [address] [place] [address] Dr. Manda York T4, T3U, FTI LABCORPon 02-15 Free Thyroxine Index 2.6 Normal 1.2-4.9 [facility] Comment on above: Performed By: #### S LUIGI MELO #### [facility] [address] [address] [address] Manda York T3 Uptake 26 % Normal 24-39 [facility] Comment on above: Performed By: #### S LEANN MELOC #### [facility] [address] [address] [address] Manda York T4 [Mass/Vol] 9.9 ug/dL Normal 4.5-12.0 [facility] Comment on above: Performed By: #### S LEANN MELOC #### [facility] [address] [place] [address] Dr. Manda York CBC AUTO DIFFon 02-14-2022 BASO # 0.1 103/ul Normal 0.0-0.1 [facility] Comment on above: Performed By: #### U AMIC #### [facility] [address] [place] [address] Dr. Manda York Basophils/100 WBC (Bld) 0.6 % Normal 0.2-2.0 [facility] Comment on above: Performed By: #### U AMIC #### [facility] [address] [place] [address] Dr. Manda York EO # 0.3 103/ul Normal 0.0-0.7 [facility] Comment on above: Performed By: #### U AMIC #### [facility] [address] [address] [address] Manda York Eosinophils/100 WBC (Bld) 3.4 % Normal 0.9-7.0 [facility] Comment on above: Performed By: #### U AMIC #### [facility] [address] [place] [address] Dr. Manda York Erythrocyte distribution width (RBC) [Ratio] 14.6 % Normal 11.0-15.0 [facility] Comment on above: Performed By: #### U AMIC #### [facility] [address] [place] [address] Dr. Manda York Hematocrit (Bld) [Volume fraction] 39.1 % Normal 36.0-48.0 [facility] Comment on above: Performed By: #### U AMIC #### [facility] [address] [address] [address] Manda York Hemoglobin (Bld) [Mass/Vol] 12.4 g/dL Normal 12.0-16.0 [facility] Comment on above: Performed By: #### U AMIC #### [facility] [address] [address] [address] Manda York IG # 0.03 10e3/ul Normal 0.00-0.03 [facility] Comment on above: Performed By: #### U AMIC #### [facility] [address] [place] [address] Dr. Manda York IG % 0.3 % Normal 0.0-0.5 [facility] Comment on above: Performed By: #### U AMIC #### [facility] [address] [address] [address] Manda York LYMPH # 3.6 103/ul Normal 1.2-3.8 [facility] Comment on above: Performed By: #### U AMIC #### [facility] [address] [place] [address] Dr. Manda York Lymphocytes/100 WBC (Bld) 39.9 % Normal 20.5-60.0 [facility] Comment on above: Performed By: #### U AMIC #### [facility] [address] [address] [address] Manda York MANUAL DIFF REQ NO Normal [facility] Comment on above: Performed By: #### U AMIC #### [facility] [address] [place] [address] Dr. Manda York MCH (RBC) [Entitic mass] 28.4 pg Normal 26.7-34.0 [facility] Comment on above: Performed By: #### U AMIC #### [facility] [address] [place] [address] Dr. Manda York MCHC (RBC) [Mass/Vol] 31.7 g/dL Normal 29.9-35.2 [facility] Comment on above: Performed By: #### U AMIC #### [facility] [address] [address] [address] Manda York MCV (RBC) [Entitic vol] 89.7 fL Normal 81.0-99.0 [facility] Comment on above: Performed By: #### U AMIC #### [facility] [address] [address] [address] Manda York MONO # 0.7 103/ul Normal 0.3-0.8 [facility] Comment on above: Performed By: #### U AMIC #### [facility] [address] [address] [address] Manda York Monocytes/100 WBC (Bld) 7.3 % Normal 1.7-12.0 [facility] Comment on above: Performed By: #### U AMIC #### [facility] [address] [place] [address] Dr. Manda York NEUT # 4.4 103/ul Normal 1.4-6.5 [facility] Comment on above: Performed By: #### U AMIC #### [facility] [address] [place] [address] Dr. Manda York Neutrophils/100 WBC (Bld) 48.5 % Normal 43.0-75.0 [facility] Comment on above: Performed By: #### U AMIC #### [facility] [address] [address] [address] Manda York Platelet mean volume (Bld) [Entitic vol] 10.1 fL Normal 9.5-13.5 [facility] Comment on above: Performed By: #### U AMIC #### [facility] [address] [place] [address] Dr. Manda York PLT 310 103/ul Normal 150-450 [facility] Comment on above: Performed By: #### U AMIC #### [facility] [address] [place] [address] Dr. Manda York RBC 4.36 106/ul Normal 4.20-5.40 [facility] Comment on above: Performed By: #### U AMIC #### [facility] [address] [address] [address] Manda York WBC 9.0 103/ul Normal 4.0-11.0 [facility] Comment on above: Performed By: #### U AMIC #### [facility] [address] [place] [address] Dr. Manda York CRPon 02-14-2022 CRP [Mass/Vol] mg/L Normal <=1.0 [facility] Comment on above: Performed By: #### U AMIC #### [facility] [address] [place] [address] Dr. Manda York CULTURE URINEon 02-14-2022 CULTURE URINE Culture Observations : LIGHT GROWTH OF MIXED GENITAL AMBER. NO POTENTIAL PATHOGENS SEEN. Normal [facility] Comment on above: Performed By: #### C BC #### [facility] [address] [place] [address] Dr. Manda York PROF 14(COMP METB)on 022 Albumin [Mass/Vol] 3.5 g/dL Normal 3.4-5.0 [facility] Comment on above: Performed By: #### U AMIC #### [facility] [address] [place] [address] Dr. Manda York Albumin/Globulin [Mass ratio] 1.0 {ratio} Normal [facility] Comment on above: Performed By: #### U AMIC #### [facility] [address] [place] [address] Dr. Manda York ALP [Catalytic activity/Vol] 71 U/L Normal 46-116 [facility] Comment on above: Performed By: #### U AMIC #### [facility] [address] [place] [address] Dr. Manda York ALT [Catalytic activity/Vol] 46 U/L Normal 14-59 [facility] Comment on above: Performed By: #### U AMIC #### [facility] [address] [place] [address] Dr. Manda York Anion gap [Moles/Vol] 11.6 mmol/L Normal [facility] Comment on above: Performed By: #### U AMIC #### [facility] [address] [address] [address] Manda York AST [Catalytic activity/Vol] 15 U/L Normal 15-37 [facility] Comment on above: Performed By: #### U AMIC #### [facility] [address] [address] [address] Manda York Bilirubin [Mass/Vol] 0.2 mg/dL Normal 0.2-1.0 [facility] Comment on above: Performed By: #### U AMIC #### [facility] [address] [address] [address] Manda York Calcium [Mass/Vol] 8.7 mg/dL Normal 8.5-10.1 [facility] Comment on above: Performed By: #### U AMIC #### [facility] [address] [address] [address] Manda York Chloride [Moles/Vol] 104 mmol/L Normal 98-107 [facility] Comment on above: Performed By: #### U AMIC #### [facility] [address] [address] [address] Manda York CO2 [Moles/Vol] 25.1 mmol/L Normal 21.0-32.0 [facility] Comment on above: Performed By: #### U AMIC #### [facility] [address] [address] [address] Manda York Creatinine [Mass/Vol] 0.80 mg/dL Normal 0.55-1.02 [facility] Comment on above: Performed By: #### U AMIC #### [facility] [address] [address] [address] Manda York EGFR-AF IRANIAN >60 Normal >=60 [facility] Comment on above: Performed By: #### U AMIC #### [facility] [address] [place] [address] Dr. Manda York EGFR-NON AF IRANIAN >60 Normal >=60 [facility] Comment on above: Performed By: #### U AMIC #### [facility] [address] [address] [address] Manda York Globulin (S) [Mass/Vol] 3.6 g/dL Normal [facility] Comment on above: Performed By: #### U AMIC #### [facility] [address] [address] [address] Manda York Glucose [Mass/Vol] 92 mg/dL Normal 74-106 [facility] Comment on above: Performed By: #### U AMIC #### [facility] [address] [address] [address] Manda York Potassium [Moles/Vol] 3.7 mmol/L Normal 3.5-5.1 [facility] Comment on above: Performed By: #### U AMIC #### [facility] [address] [place] [address] Dr. Manda York Protein [Mass/Vol] 7.1 g/dL Normal 6.4-8.2 [facility] Comment on above: Performed By: #### U AMIC #### [facility] [address] [address] [address] Manda York Sodium [Moles/Vol] 137 mmol/L Normal 136-145 [facility] Comment on above: Performed By: #### U AMIC #### [facility] [address] [address] [address] Manda York Urea nitrogen [Mass/Vol] 17.0 mg/dL Normal 7.0-18.0 [facility] Comment on above: Performed By: #### U AMIC #### [facility] [address] [address] [address] Manda York Urea nitrogen/Creatinine [Mass ratio] 21.2 mg/mg Normal [facility] Comment on above: Performed By: #### U AMIC #### [facility] [address] [address] [address] Manda York SED RATE WESTFormerly [facility] 2021 SED RATE 40 mm/hr Critically high <=[address] [facility] Comment on above: Performed By: #### S EDR #### [facility] [address] [address] [address] Manda York TSHon 02-14-2022 TSH 1.155 uIU/mL Normal 0.358-3.740 [facility] Comment on above: Performed By: #### U AMIC #### [facility] [address] [address] [address] Manda York UA RANDOM W/MICROSCOPICon BACTERIA NONE SEEN Normal NONE SEEN [facility] Comment on above: Performed By: #### U AMIC #### [facility] [address] [place] [address] Dr. Manda York Bilirubin Ql (U) Negative Normal NEGATIVE [facility] Comment on above: Performed By: #### U AMIC #### [facility] [address] [place] [address] Dr. Manda York CAST NONE SEEN Normal NONE SEEN [facility] Comment on above: Performed By: #### U AMIC #### [facility] [address] [place] [address] Dr. Manda York Clarity (U) CLEAR Normal CLEAR [facility] Comment on above: Performed By: #### U AMIC #### [facility] [address] [place] [address] Dr. Manda York Color (U) LT. YELLOW Normal YELLOW [facility] Comment on above: Performed By: #### U AMIC #### [facility] [address] [address] [address] Manda York Crystals LM Nom (Urine sed) NONE SEEN Normal NONE SEEN [facility] Comment on above: Performed By: #### U AMIC #### [facility] [address] [place] [address] Dr. Manda York Epithelial cells LM Ql (Urine sed) RARE Normal NONE SEEN /RARE [facility] Comment on above: Performed By: #### U AMIC #### [facility] [address] [place] [address] Dr. Manda York Glucose Ql (U) Negative Normal NEGATIVE [facility] Comment on above: Performed By: #### U AMIC #### [facility] [address] [address] [address] Manda York Hemoglobin Ql (U) Negative Normal NEGATIVE [facility] Comment on above: Performed By: #### U AMIC #### [facility] [address] [address] [address] Manda York Ketones Ql (U) Negative Normal NEGATIVE [facility] Comment on above: Performed By: #### U AMIC #### [facility] [address] [address] [address] Manda York LEUKOCYTES Negative Normal NEGATIVE [facility] Comment on above: Performed By: #### U AMIC #### [facility] [address] [address] [address] Manda York MUCOUS NONE SEEN Normal NONE SEEN [facility] Comment on above: Performed By: #### U AMIC #### [facility] [address] [address] [address] Manda York Nitrite Ql (U) Negative Normal NEGATIVE [facility] Comment on above: Performed By: #### U AMIC #### [facility] [address] [address] [address] Manda York pH (U) 6.0 [pH] Normal 5-9 [facility] Comment on above: Performed By: #### U AMIC #### [facility] [address] [address] [address] Manda York RBC NONE SEEN Abnormal 0-2 [facility] Comment on above: Performed By: #### U AMIC #### [facility] [address] [address] [address] Manda York SPEC GRAVITY 1.005 Normal 1.005-<=1.025 [facility] Comment on above: Performed By: #### U AMIC #### [facility] [address] [address] [address] Manda York UA PROTEIN Negative Normal NEGATIVE/ TRACE [facility] Comment on above: Performed By: #### U AMIC #### [facility] [address] [place] [address] Dr. Manda York Urobilinogen Qn (U) 0.2 {Carmella'U}/dL Normal 0.2 - 1. 0 [facility] Comment on above: Performed By: #### U AMIC #### [facility] [address] [place] [address] Dr. Manda York WBC NONE SEEN Normal NONE SEEN [facility] Comment on above: Performed By: #### U AMIC #### [facility] [address] [place] [address] Dr. Manda York URIC ACID SERUMon 02-14-2022 Urate [Mass/Vol] 4.2 mg/dL Normal 2.6-6.0 [facility] Comment on above: Performed By: #### U AMIC #### [facility] [address] [place] [address] Dr. Manda York VITAMIN D 25 OHon 02-14-2022 VIT D 25-OH 22.4 ng/mL Normal [facility] Comment on above: Performed By: #### F T4 #### [facility] [address] [place] [address] Dr. Manda York VIT D RANGES SEE BELOW Normal [facility] Comment on above: Result Comment: <20 ng/mL Vit D deficient 20 - <30 ng/mL Vit D insufficient 30 - 100 ng/mL Vit D sufficient >100 ng/mL Potential Toxicity Performed By: #### F T4 #### [facility] [address] [place] [address] Dr. Manda York METANEPHRINES FRAC. QNT 24 H R URINEon 11-28-2021 Metanephrine, U,24hr Comment Normal 36-209 [facility] Comment on above: Result Comment: No t otal volume submitted. Unable to calculate 24 hour result. Performed By: #### S LUIGI MELO #### [facility] [address] [place] [address] Dr. Manda York Metanephrine, Ur 57 ug/L Normal Undefined [facility] Comment on above: Performed By: #### S LUIGI MELO #### [facility] [address] [address] [address] Manda York Normetanephr.,U,24h Comment Normal 131-612 [facility] Comment on above: Result Comment: No t otal volume submitted. Unable to calculate 24 hour result. Performed By: #### LEANN PATRICK #### [facility] [address] [address] [address] Manda York Normetanephrine, Ur 116 ug/L Normal Undefined [facility] Comment on above: Performed By: #### [facility] #### [facility] [address] [place] [address] Dr. Manda York METANEPHRINES PLASMA FREEon 11-27-2021 Metanephrine, Pl 22.1 pg/mL Normal 0.0-88.0 [facility] Comment on above: Performed By: #### LEANN PATRICK #### [facility] [address] [place] [address] Dr. Manda York Normetanephrine, Pl 50.7 pg/mL Normal 0.0-218.9 [facility] Comment on above: Performed By: #### LEANN PATRICK #### [facility] [address] [place] [address] Dr. Manda York CMV PLASMA PCRon 11-19-2021 CMV Quant DNA PCR (Plasma) Negative Normal Negative [facility] Comment on above: Result Comment: No C MV DNA detected. The quantitative range of this assay is 200 to 1 million IU/mL. Performed By: #### LEANN PATRICK #### [facility] [address] [place] [address] Dr. Manda York log10 CMV Qn DNA Pl UPTCAL Normal [facility] Comment on above: Result Comment: Unab le to calculate result since non-numeric result obtained for component test. Performed By: #### LEANN PATRICK #### [facility] [address] [place] [address] Dr. Manda York CMV AB IGMon 11-18-2021 Cytomegalovirus (CMV) Ab, IgM 43.2 AU/mL Critically high 0.0-29.9 [facility] Comment on above: Result Comment: Nega tive <30.0 Equivocal 30.0 - 34.9 Positive >34.9 A positive result is generally indicative of acute infection, reactivation or persistent IgM production. Performed By: #### S LUIGI MELO #### [facility] [address] [place] [address] Dr. Manda York CMV AB, IGGon 11-18-2021 Cytomegalovirus (CMV) Ab, IgG >10.00 Critically high 0.00-0.59 [facility] Comment on above: Result Comment: Nega tive <0.60 Equivocal 0.60 - 0.69 Positive >0.69 Performed By: #### C MVIGG #### [facility] [address] [place] [address] Dr. Manda York CBC AUTO DIFFon 11-17-2021 BASO # 0.1 103/ul Normal 0.0-0.1 [facility] Comment on above: Performed By: #### C BC #### [facility] [address] [place] [address] Dr. Manda York Basophils/100 WBC (Bld) 0.6 % Normal 0.2-2.0 [facility] Comment on above: Performed By: #### C BC #### [facility] [address] [place] [address] Dr. Manda York EO # 0.2 103/ul Normal 0.0-0.7 [facility] Comment on above: Performed By: #### C BC #### [facility] [address] [place] [address] Dr. Manda York Eosinophils/100 WBC (Bld) 2.3 % Normal 0.9-7.0 [facility] Comment on above: Performed By: #### C BC #### [facility] [address] [place] [address] Dr. Manda York Erythrocyte distribution width (RBC) [Ratio] 14.2 % Normal 11.0-15.0 [facility] Comment on above: Performed By: #### C BC #### [facility] [address] [place] [address] Dr. Manda York Hematocrit (Bld) [Volume fraction] 40.2 % Normal 36.0-48.0 [facility] Comment on above: Performed By: #### C BC #### [facility] [address] [place] [address] Dr. Manda York Hemoglobin (Bld) [Mass/Vol] 12.8 g/dL Normal 12.0-16.0 [facility] Comment on above: Performed By: #### C BC #### [facility] [address] [place] [address] Dr. Manda York IG # 0.02 10e3/ul Normal 0.00-0.03 [facility] Comment on above: Performed By: #### C BC #### [facility] [address] [place] [address] Dr. Manda York IG % 0.2 % Normal 0.0-0.5 [facility] Comment on above: Performed By: #### C BC #### [facility] [address] [place] [address] Dr. Manda York LYMPH # 2.5 103/ul Normal 1.2-3.8 [facility] Comment on above: Performed By: #### C BC #### [facility] [address] [place] [address] Dr. Manda York Lymphocytes/100 WBC (Bld) 24.9 % Normal 20.5-60.0 [facility] Comment on above: Performed By: #### C BC #### [facility] [address] [place] [address] Dr. Manda York MANUAL DIFF REQ NO Normal [facility] Comment on above: Performed By: #### C BC #### [facility] [address] [place] [address] Dr. Manda York MCH (RBC) [Entitic mass] 27.9 pg Normal 26.7-34.0 [facility] Comment on above: Performed By: #### C BC #### [facility] [address] [place] [address] Dr. Manda York MCHC (RBC) [Mass/Vol] 31.8 g/dL Normal 29.9-35.2 [facility] Comment on above: Performed By: #### C BC #### [facility] [address] [address] [address] Manda York MCV (RBC) [Entitic vol] 87.6 fL Normal 81.0-99.0 [facility] Comment on above: Performed By: #### C BC #### [facility] [address] [address] [address] Manda York MONO # 0.6 103/ul Normal 0.3-0.8 [facility] Comment on above: Performed By: #### C BC #### [facility] [address] [place] [address] Dr. Manda York Monocytes/100 WBC (Bld) 6.3 % Normal 1.7-12.0 [facility] Comment on above: Performed By: #### C BC #### [facility] [address] [place] [address] Dr. Manda York NEUT # 6.5 103/ul Normal 1.4-6.5 [facility] Comment on above: Performed By: #### C BC #### [facility] [address] [place] [address] Dr. Manda York Neutrophils/100 WBC (Bld) 65.7 % Normal 43.0-75.0 [facility] Comment on above: Performed By: #### C BC #### [facility] [address] [place] [address] Dr. Manda York Platelet mean volume (Bld) [Entitic vol] 10.1 fL Normal 9.5-13.5 [facility] Comment on above: Performed By: #### C BC #### [facility] [address] [place] [address] Dr. Manda York PLT 304 103/ul Normal 150-450 [facility] Comment on above: Performed By: #### C BC #### [facility] [address] [place] [address] Dr. Manda York RBC 4.59 106/ul Normal 4.20-5.40 [facility] Comment on above: Performed By: #### C BC #### [facility] [address] [place] [address] Dr. Manda York WBC 9.9 103/ul Normal 4.0-11.0 [facility] Comment on above: Performed By: #### C BC #### [facility] [address] [place] [address] Dr. Manda York PROF 14(COMP METB)on 022 Albumin [Mass/Vol] 3.7 g/dL Normal 3.4-5.0 [facility] Comment on above: Performed By: #### C BC #### [facility] [address] [place] [address] Dr. Manda York Albumin/Globulin [Mass ratio] 1.0 {ratio} Normal [facility] Comment on above: Performed By: #### C BC #### [facility] [address] [place] [address] Dr. Manda York ALP [Catalytic activity/Vol] 65 U/L Normal 46-116 [facility] Comment on above: Performed By: #### C BC #### [facility] [address] [place] [address] Dr. Manda York ALT [Catalytic activity/Vol] 35 U/L Normal 14-59 [facility] Comment on above: Performed By: #### C BC #### [facility] [address] [place] [address] Dr. Manda York Anion gap [Moles/Vol] 13.0 mmol/L Normal [facility] Comment on above: Performed By: #### C BC #### [facility] [address] [place] [address] Dr. Manda York AST [Catalytic activity/Vol] 12 U/L Critically low 15-37 [facility] Comment on above: Performed By: #### C BC #### [facility] [address] [place] [address] Dr. Manda York Bilirubin [Mass/Vol] 0.2 mg/dL Normal 0.2-1.0 [facility] Comment on above: Performed By: #### C BC #### [facility] [address] [address] [address] Manda York Calcium [Mass/Vol] 8.7 mg/dL Normal 8.5-10.1 [facility] Comment on above: Performed By: #### C BC #### [facility] [address] [address] [address] Manda York Chloride [Moles/Vol] 104 mmol/L Normal 98-107 [facility] Comment on above: Performed By: #### C BC #### [facility] [address] [address] [address] Manda York CO2 [Moles/Vol] 24.9 mmol/L Normal 21.0-32.0 [facility] Comment on above: Performed By: #### C BC #### [facility] [address] [address] [address] Manda York Creatinine [Mass/Vol] 0.77 mg/dL Normal 0.55-1.02 [facility] Comment on above: Performed By: #### C BC #### [facility] [address] [address] [address] Manda York EGFR-AF IRANIAN >=60 Normal >=60 [facility] Comment on above: Performed By: #### C BC #### [facility] [address] [address] [address] Manda York EGFR-NON AF IRANIAN >=60 Normal >=60 [facility] Comment on above: Performed By: #### C BC #### [facility] [address] [address] [address] Manda York Globulin (S) [Mass/Vol] 3.8 g/dL Normal [facility] Comment on above: Performed By: #### C BC #### [facility] [address] [address] [address] Manda York Glucose [Mass/Vol] 110 mg/dL Critically high 74-106 [facility] Comment on above: Performed By: #### C BC #### [facility] [address] [address] [address] Manda York Potassium [Moles/Vol] 3.9 mmol/L Normal 3.5-5.1 [facility] Comment on above: Performed By: #### C BC #### [facility] [address] [address] [address] Manda York Protein [Mass/Vol] 7.5 g/dL Normal 6.4-8.2 [facility] Comment on above: Performed By: #### C BC #### [facility] [address] [address] [address] Manda York Sodium [Moles/Vol] 138 mmol/L Normal 136-145 [facility] Comment on above: Performed By: #### C BC #### [facility] [address] [address] [address] Manda York Urea nitrogen [Mass/Vol] 17.0 mg/dL Normal 7.0-18.0 [facility] Comment on above: Performed By: #### C BC #### [facility] [address] [address] [address] Manda York Urea nitrogen/Creatinine [Mass ratio] 22.1 mg/mg Normal [facility] Comment on above: Performed By: #### C BC #### [facility] [address] [address] [address] Manda York SED RATE [facility] 2021 SED RATE 45 mm/hr Critically high <=20 [facility] Comment on above: Performed By: #### F T4 #### [facility] [address] [address] [address] Manda York CHRISTIAN EIA W/REFLEX 5 BIOMARKER Son 10-06-2021 CHRISTIAN Direct Positive Abnormal Negative [facility] Comment on above: Performed By: #### C BC #### [facility] [address] [place], [place] [id number] Dr. Manda York Anti-DNA (DS) Ab Qn 10 IU/mL Critically high 0-9 [facility] Comment on above: Result Comment: Nega tive <5 Equivocal 5 - 9 Positive >9 Performed By: #### C BC #### [facility] [address] [address] [address] Manda York TECHNICAL PUBLICATIONS MANAGER Antibodies <0.2 Normal 0.0-0.9 [facility] Comment on above: Performed By: #### C BC #### [facility] [address] [address] [address] Manda York SEE BELOW: Comment Normal [facility] Comment on above: Result Comment: Auto [...] Sm (anti-Schneider) SLE 15 - 30% --------- TECHNICAL PUBLICATIONS MANAGER Mixed Connective Tissue Disease 95% (U1 nRNP, SLE 30 - 50% anti-ribonucleoprotein) Polymyositis and/or Dermatomyositis 20% --------- Scl-70 (antiDNA Scleroderma (diffuse) 20 - 35% topoisomerase) Crest 13% --------- Felicita-1 Polymyositis and/or Dermatomyositis 20 - 40% --------- Centromere B Scleroderma - Crest variant 80% Performed By: #### C BC #### [facility] [address] [address] [address] Manda York Sjogryaniv's Anti-SS-A <0.2 Normal 0.0-0.[address] [facility] Comment on above: Performed By: #### C BC #### [facility] [address] [place] [address] Dr. Manda York Sjogren's Anti-SS-B <0.2 Normal 0.0-0.9 [facility] Comment on above: Performed By: #### C BC #### [facility] [address] [place] [address] Dr. Manda York Schneider Antibodies <0.2 Normal 0.0-0.9 [facility] Comment on above: Performed By: #### C BC #### [facility] [address] [place] [address] Dr. Manda York CMV PLASMA PCRon 10-06-2021 CMV Quant DNA PCR (Plasma) Negative Normal Negative [facility] Comment on above: Result Comment: No C MV DNA detected. The quantitative range of this assay is 200 to 1 million IU/mL. Performed By: #### C MVPL #### [facility] [address] [place] [address] Dr. Manda York log10 CMV Qn DNA Pl UPTCAL Normal [facility] Comment on above: Result Comment: Unab le to calculate result since non-numeric result obtained for component test. Performed By: #### C MVPL #### [facility] [address] [place] [address] Dr. Manda York CMV AB IGMon 2021 Cytomegalovirus (CMV) Ab, IgM 35.5 AU/mL Critically high 0.0-29.9 [facility] Comment on above: Result Comment: Nega tive <30.0 Equivocal 30.0 - 34.9 Positive >34.9 A positive result is generally indicative of acute infection, reactivation or persistent IgM production. Performed By: #### S LEANN MELOC #### [facility] [address] [place] [address] Dr. Manda York CMV AB, IGGon 2021 Cytomegalovirus (CMV) Ab, IgG 6.30 U/mL Critically high 0.00-0.59 [facility] Comment on above: Result Comment: Nega tive <0.60 Equivocal 0.60 - 0.69 Positive >0.69 Performed By: #### S LORIE THYLC #### [facility] [address] [place] [address] Dr. Manda York CBC AUTO DIFFon 10-03-2021 BASO # 0.1 103/ul Normal 0.0-0.1 [facility] Comment on above: Performed By: #### C BC #### [facility] [address] [place] [address] Dr. Manda York Basophils/100 WBC (Bld) 0.7 % Normal 0.2-2.0 [facility] Comment on above: Performed By: #### C BC #### [facility] [address] [place] [address] Dr. Manda York EO # 0.2 103/ul Normal 0.0-0.7 [facility] Comment on above: Performed By: #### C BC #### [facility] [address] [place] [address] Dr. Manda York Eosinophils/100 WBC (Bld) 2.0 % Normal 0.9-7.0 [facility] Comment on above: Performed By: #### C BC #### [facility] [address] [place] [address] Dr. Manda York Erythrocyte distribution width (RBC) [Ratio] 14.4 % Normal 11.0-15.0 [facility] Comment on above: Performed By: #### C BC #### [facility] [address] [place] [address] Dr. Manda York Hematocrit (Bld) [Volume fraction] 37.2 % Normal 36.0-48.0 [facility] Comment on above: Performed By: #### C BC #### [facility] [address] [place] [address] Dr. Manda York Hemoglobin (Bld) [Mass/Vol] 12.3 g/dL Normal 12.0-16.0 [facility] Comment on above: Performed By: #### C BC #### [facility] [address] [place] [address] Dr. Manda York IG # 0.02 10e3/ul Normal 0.00-0.03 [facility] Comment on above: Performed By: #### C BC #### [facility] [address] [place] [address] Dr. Manda York IG % 0.2 % Normal 0.0-0.5 [facility] Comment on above: Performed By: #### C BC #### [facility] [address] [place] [address] Dr. Manda York LYMPH # 2.1 103/ul Normal 1.2-3.8 [facility] Comment on above: Performed By: #### C BC #### [facility] [address] [place] [address] Dr. Manda York Lymphocytes/100 WBC (Bld) 26.4 % Normal 20.5-60.0 [facility] Comment on above: Performed By: #### C BC #### [facility] [address] [place] [address] Dr. Manda York MANUAL DIFF REQ NO Normal [facility] Comment on above: Performed By: #### C BC #### [facility] [address] [place] [address] Dr. Manda York MCH (RBC) [Entitic mass] 29.2 pg Normal 26.7-34.0 [facility] Comment on above: Performed By: #### C BC #### [facility] [address] [place] [address] Dr. Manda Yrok MCHC (RBC) [Mass/Vol] 33.1 g/dL Normal 29.9-35.2 [facility] Comment on above: Performed By: #### C BC #### [facility] [address] [place] [address] Dr. Manda York MCV (RBC) [Entitic vol] 88.4 fL Normal 81.0-99.0 [facility] Comment on above: Performed By: #### C BC #### [facility] [address] [place] [address] Dr. Manda York MONO # 0.5 103/ul Normal 0.3-0.8 [facility] Comment on above: Performed By: #### C BC #### [facility] [address] [place] [address] Dr. aMnda York Monocytes/100 WBC (Bld) 6.7 % Normal 1.7-12.0 [facility] Comment on above: Performed By: #### C BC #### [facility] [address] [place] [address] Dr. Manda York NEUT # 5.2 103/ul Normal 1.4-6.5 [facility] Comment on above: Performed By: #### C BC #### [facility] [address] [place] [address] Dr. Manda York Neutrophils/100 WBC (Bld) 64.0 % Normal 43.0-75.0 [facility] Comment on above: Performed By: #### C BC #### [facility] [address] [place] [address] Dr. Manda York Platelet mean volume (Bld) [Entitic vol] 10.5 fL Normal 9.5-13.5 [facility] Comment on above: Performed By: #### C BC #### [facility] [address] [place] [address] Dr. Manda York PLT 265 103/ul Normal 150-450 [facility] Comment on above: Performed By: #### C BC #### [facility] [address] [place] [address] Dr. Manda York RBC 4.21 106/ul Normal 4.20-5.40 [facility] Comment on above: Performed By: #### C BC #### [facility] [address] [place] [address] Dr. Manda York WBC 8.1 103/ul Normal 4.0-11.0 [facility] Comment on above: Performed By: #### C BC #### [facility] [address] [place] [address] Dr. Manda York CRPon 10-03-2021 CRP [Mass/Vol] mg/L Normal <=1.0 [facility] Comment on above: Performed By: #### F T4 #### [facility] [address] [place] [address] Dr. Manda York SED RATE [facility] 2021 SED RATE 34 mm/hr Critically high <=20 [facility] Comment on above: Performed By: #### C BC #### [facility] [address] [address] [address] Manda York CHLORIDE (POC)Ordered By: Jae Black on 10-07-2020 Chloride [Moles/Vol] 106 mmol/L 98 - 10 7 mmol/L [facility] Phone: Catheterization and angiogra phy procedure details panelOrdered By: Jaren Black on 10-07-2020 Cardiac Diagnostic Report Demographics Patient TERA Torres Date of Study 10/07/2020 Name Date of 1980 Gender Female Age 40 year(s) Race Room [id number]^LEYDI^JAREN Height: 67 inch, 170.18 cm Number Corporate [id number] Weight: 234 pounds, 106.1 kg ID # Patient [id number] BSA: 2.16 m^2 BMI: 36.65 kg/m^2 Acct # MR # [id number] Performing Jaren Black Physician Referring # Physician Assisting Physician Additional [...] Recommendations Medical treatments Risk factor modification. Signature - - Angiographic Findings Cardiac Arteries and Lesion Findings LMCA: Normal 0% stenosis. LAD: Normal 0% stenosis. LCx: Normal 0% stenosis. RCA: Normal 0% stenosis. Coronary Tree Dominance: Right LV Analysis LV function assessed as:Normal. Ejection Fraction + --------+---+ !Method !EF%! + --------+---+ !LV gram !55 ! + --------+---+ Procedure Data Procedure Start Time: 10/07/2020 10:25. [...] Right coronary angiography. Contrast Material: - Isovue 87128 ml Fluoroscopy Time: Diagnostic: 2:12 minutes. Total: [...] assessed as CCS II according to the [place] clinical classification. Hemodynamics Condition: Baseline Room Air Estimated: 246.52Heart Rate: 103 bpm Pressure +-----+ + !Site !Pressure ! +-----+ + !AO !106/68 (86) ! +-----+ + !AO !104/71 (87) ! +-----+ + !AO !112/66 (86) ! +-----+ + !LV !126/0 ,1 ! +-----+ + !LV !126/0 ,5 ! +-----+ + Valve Gradients and Areas + +-------- -+---------+--------- + +--------- + + !Valve !Peak !Mean !Area !Index !Flow !Source ! + +-------- -+---------+--------- + +--------- + + !Aortic (more content not included)... [facility] Phone: Jr, pn Incoming Cardio Results From [facility]/ - 10/07/2020 10:37 AM EDT Cardiac Diagnostic Report Demographics Patient TERA Torres Date of Study 10/07/2020 Name Date of 1980 Gender Female Age 40 year(s) Race Room [id number]^LEYDI^JAREN Height: 67 inch, 170.18 cm Number Corporate [id number] Weight: 234 pounds, 106.1 kg ID # Patient [id number] BSA: 2.16 m^2 BMI: 36.65 kg/m^2 Acct # MR # [id number] Performing Jaren Black Physician Referring # Physician Assisting Physician Additional [...] Recommendations Medical treatments Risk factor modification. Signature - - Angiographic Findings Cardiac Arteries and Lesion Findings LMCA: Normal 0% stenosis. LAD: Normal 0% stenosis. LCx: Normal 0% stenosis. RCA: Normal 0% stenosis. Coronary Tree Dominance: Right LV Analysis LV function assessed as:Normal. Ejection Fraction + --------+--- + !Method !EF%! + --------+--- + !LV gram !55 ! + --------+--- + Procedure Data Procedure Start Time: 10/07/2020 [...] Right coronary angiography. Contrast Material: - Isovue 76682 ml Fluoroscopy Time: Diagnostic: 2:12 minutes. Total: [...] assessed as CCS II according to the [place] clinical classification. Hemodynamics Condition: Baseline Room Air Estimated: 246.52Heart Rate: 103 bpm Pressure +-----+ + !Site !Pressure ! +-----+ + !AO !106/ (86) ! +-----+ + !AO !104/71 (87) ! +-----+ + !AO !112/ (86) ! +-----+ + !LV !126/0 ,1 ! +-----+ + !LV !126/0 ,5 ! +-----+ + Valve Gradients and Areas + +-------- -+---------+--------- + +--------- + + !Valve !Peak !Mean !Area !Index !Flow !Source ! + +-------- -+---------+--------- + +--------- + + !Aortic !16 !12 ! ! ! ! ! + +-------- -+---------+--------- + +--------- + + !Aortic !16 !12 ! ! ! ! ! + +-------- -+---------+--------- + +--------- + + Shunts Oxygen Values O2 Qeffwquo876.4O2 Rfqyiwmvwpm188.52 [facility] Phone: [facility] Phone: [facility] Phone: Creatinine W/GFR Point of Ca reOrdered By: Jaren Black on 10-07-2020 Creatinine [Mass/Vol] 0.64 mg/dL 0.51 - 1.19 mg/dL [facility] Phone: GFR Non- >60 >60 mL/min [facility] Phone: GFR/1.73 sq M.predicted MDRD (S/P/Bld) [Vol rate/Area] mL/min/{1.73_m2} >60 mL/min [facility] Phone: GFR/1.73 sq M.predicted MDRD (S/P/Bld) [Vol rate/Area] [facility] Phone: Comment on above: Average GFR for 40-4 9 years old: 99 mL/min/1.73sq m Chronic Kidney Disease: <60 mL/min/1.73sq m Kidney failure: <15 mL/min/1.73sq m eGFR calculated using average adult body mass. Additional eGFR calculator available at: http://www.Pull/multiple_crcl_2012.htm Hemoglobin and hematocrit, b loodOrdered By: Jaren Black on 10-07-2020 Hematocrit (Bld) [Volume fraction] 41 % 36 - 46 % [facility] Phone: Hemoglobin (Bld) [Mass/Vol] 14.0 g/dL 12.0 - 16.0 g/dL [facility] Phone: No Panel InformationOrdered By: Jaren Black on 10-07-[address] [facility] Phone: POCT GlucoseOrdered By: Anu Black on 10-07-2020 Glucose [Mass/Vol] 98 mg/dL 74 - 100 mg/dL [facility] Phone: POCT urine pregnancyOrdered By: Jaren Black on 10-07-2020 Beta HCG ( test) Ql (U) Negative NEGATIVE [facility] Phone: Comment on above: Specimens with hCG l evels near the threshold of the test (25 mIU/mL) may give a negative or indeterminate result. In such cases, another test should be performed with a new specimen in 48-72 hours. If early is suspected clinically in this setting, correlation with quantitative serum b-hCG level is suggested. [facility] Phone: POTASSIUM (POC)Ordered By: Al Black on 10-07-2020 Potassium [Moles/Vol] 3.8 mmol/L 3.5 - 4.5 mmol/L [facility] Phone: Platelet Counton 10-07-2020 Platelets (Bld) [#/Vol] 299 10*3/uL Normal 138-453 [facility] Comment on above: Performed By: #### P LT #### [employer] [address] [place] [id number] Web Content Director: Rick Serrano MD Platelet countOrdered By: Jae Black on 10-07-2020 Platelets (Bld) [#/Vol] 299 10*3/uL [facility] Phone: [facility] Phone: SODIUM (POC)Ordered By: Anu Black on 10-07-2020 Sodium [Moles/Vol] 141 mmol/L 138 - 146 mmol/L [facility] Phone: Coding Summary.on 01-12-2019 Coding Summary. CODING DATE: 01/12/2019 FINAL [facility] STATUS: Home (Routine DC) PAYOR: Medicaid [...] mass index (BMI) 34.0-34.9, adult Z79.899 Other ad terminal makeup operator (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 However, the narrative phrase printed from the coding software may appear abbreviated, or result in slightly different terminology. Coded By: Luz Judd Date Saved: 01/12/2019 10:25 am [facility] Coding Summary. CODING DATE: 01/12/2019 FINAL [facility] STATUS: Home (Routine DC) PAYOR: Medicaid [...] mass index (BMI) 34.0-34.9, adult Z79.899 Other retirement (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 However, the narrative phrase printed from the coding software may appear abbreviated, or result in slightly different terminology. Revised Coded By: Luz Judd Revised Date Saved: 01/12/2019 10:25 am [facility] XR Chest 2 Viewson 9 XR [...] Valenzuela M.D. Transcribed by: BILL Technologist: ZOILA [facility] Auto Diffon 01-11-2019 Basophils/100 WBC (Bld) 0.8 % Normal 0.0-2.0 [facility] Comment on above: Order Comment: Order Added by Discern Expert. Performed By: #### 1 [id number], 4177860, 3999857, 8185507, 39914364, 1747213, 4440054, 0466698, 5050836, 47126928, 1962568 #### [facility] [address] [place] [address] Basophils/Leukocytes Auto (Bld) [Pure # fraction] 0.1 E9/L Normal 0.0-0.2 [facility] Comment on above: Order Comment: Order Added by Discern Expert. Performed By: #### 1 7430064, 3200307, 8264396, 7222243, 75237653, 4870854, 4774459, 2601658, 6813777, 16614423, 0837554 #### [facility] [address] [place] [address] Eosinophils/100 WBC (Bld) 1.9 % Normal 0.0-8.0 [facility] Comment on above: Order Comment: Order Added by Discern Expert. Performed By: #### 1 1841063, 7780138, 8839602, 9478147, 22083099, 4905297, 5344471, 0635564, 9996130, 37178312, 4192781 #### [facility] [address] [place] [address] Eosinophils/Leukocytes Auto (Bld) [Pure # fraction] 0.1 E9/L Normal 0.0-0.5 [facility] Comment on above: Order Comment: Order Added by Discern Expert. Performed By: #### 1 7101476, 5003972, 3187945, 4076343, 75032171, 6024707, 3316249, 3564901, 1017493, 45282498, 5616231 #### [facility] [address] [place] [address] Lymphocytes/100 WBC (Bld) 28.0 % Normal 14.0-50.0 [facility] Comment on above: Order Comment: Order Added by Discern Expert. Performed By: #### 1 0588415, 2040303, 1656407, 9305553, 08254443, 9259942, 0610815, 7704899, 3221473, 13376347, 7586366 #### [facility] [address] [place] [address] Lymphocytes/Leukocytes Auto (Bld) [Pure # fraction] 2.2 E9/L Normal 1.0-4.0 [facility] Comment on above: Order Comment: Order Added by Discern Expert. Performed By: #### 1 8280041, 1339802, 7695059, 0852230, 15053210, 2039886, 5130573, 7917347, 2860207, 20472854, 6652936 #### [facility] [address] [place] [address] Monocytes/100 WBC (Bld) 7.0 % Normal 4.0-14.0 [facility] Comment on above: Order Comment: Order Added by Discern Expert. Performed By: #### 1 1102554, 4560369, 7622934, 8495312, 27663073, 0648341, 4204641, 5381753, 9543588, 88477710, 3138054 #### [facility] [address] [place] [address] Monocytes/Leukocytes Auto (Bld) [Pure # fraction] 0.6 E9/L Normal 0.2-1.0 [facility] Comment on above: Order Comment: Order Added by Discern Expert. Performed By: #### 1 7171706, 3675890, 8830278, 7847158, 64381814, 4322443, 1593216, 2429603, 6509382, 36295021, 3227499 #### [facility] [address] [place] [address] Neutrophils/100 WBC (Bld) 62.3 % Normal 36.0-75.0 [facility] Comment on above: Order Comment: Order Added by Discern Expert. Performed By: #### 1 2884148, 1157334, 1585671, 6771011, 95986598, 2201126, 8423034, 6676819, 3345152, 19783743, 0521065 #### [facility] [address] [place] [address] Neutrophils/Leukocytes Auto (Bld) [Pure # fraction] 4.9 E9/L Normal 2.0-7.5 [facility] Comment on above: Order Comment: Order Added by Discern Expert. Performed By: #### 1 3543751, 4578251, 3108936, 8927895, 63824161, 2042487, 3093283, 8205739, 3515855, 88380094, 6233033 #### [facility] [address] [place] [address] BMPon 01-11-2019 Creatinine [Mass/Vol] 0.7 mg/dL Normal 0.5-1.3 [facility] Comment on above: Performed By: #### 1 1387382, 9213542, 8375289, 1637964, 89786694, 0901194, 3956347, 3227169, 6630574, 86053496, 6092258 #### [facility] [address] [place] [address] Urea nitrogen [Mass/Vol] 11 mg/dL Normal 5-21 [facility] Comment on above: Performed By: #### 1 6265175, 4096146, 6436448, 3588319, 36002653, 8773778, 7795144, 4518444, 0906644, 61685876, 9295718 #### [facility] [address] [place] [address] Urea nitrogen/Creatinine [Mass ratio] 16 No Units Normal 10-20 [facility] Comment on above: Performed By: #### 1 1641292, 2391487, 0623606, 0552877, 41793140, 5675414, 1437557, 9289921, 4998004, 60628388, 6450117 #### [facility] [address] [place] [address] Anion gap [Moles/Vol] 14 mmol/L Normal 6-16 [facility] Comment on above: Performed By: #### 1 9931650, 2765786, 3432839, 9469645, 90719185, 9254434, 0968350, 6599275, 7879819, 05612276, 9541589 #### [facility] [address] [place] [address] Calcium [Mass/Vol] 8.9 mg/dL Normal 8.9-11.1 [facility] Comment on above: Performed By: #### 1 1035464, 0507911, 4800612, 8878327, 53998253, 0683213, 3945017, 2799415, 6012884, 27004379, 2791856 #### [facility] [address] [place] [address] Chloride [Moles/Vol] 107 mmol/L Normal 101-111 [facility] Comment on above: Performed By: #### 1 8774078, 3842551, 3269908, 6201391, 38318446, 2353440, 9796357, 6277640, 0749823, 30217511, 4065540 #### [facility] [address] [place] [address] CO2 [Moles/Vol] 22 mmol/L Normal 21-31 [facility] Comment on above: Performed By: #### 1 1344798, 8901687, 3151518, 6796962, 39452632, 3702701, 0813429, 4869213, 4215615, 76538292, 8053887 #### [facility] [address] [place] [address] Glucose [Mass/Vol] 122 mg/dL Normal 55-199 [facility] Comment on above: Result Comment: If t his glucose result represents a fasting glucose, interpretation should refer to the following reference range: 55-99 mg/dL Performed By: #### 1 0986011, 0517740, 9070150, 0718216, 84227277, 3061101, 2115180, 5109223, 7543386, 43722643, 4599648 #### [facility] [address] [place] [address] Potassium [Moles/Vol] 3.8 mmol/L Normal 3.5-5.3 [facility] Comment on above: Performed By: #### 1 9887371, 6529078, 4301914, 7344176, 96174539, 5191839, 0139749, 9733606, 1304715, 72703959, 9672394 #### [facility] [address] [place] [address] Sodium [Moles/Vol] 139 mmol/L Normal 135-145 [facility] Comment on above: Performed By: #### 1 5265219, 3812758, 1706067, 4757044, 34062618, 7710637, 0600308, 2993749, 6757049, 42401440, 7232588 #### [facility] [address] [place] [address] CBC w/ Auto Diffon 9 Erythrocyte distribution width (RBC) [Ratio] 14.0 % Normal 10.9-14.2 [facility] Comment on above: Performed By: #### 1 0348907, 2566095, 1421333, 1932499, 88045636, 7971470, 4067528, 8688571, 8720951, 96590494, 3833166 #### [facility] [address] [place] [address] Hematocrit (Bld) [Volume fraction] 39.9 % Normal 34.0-46.0 [facility] Comment on above: Performed By: #### 1 2676139, 1472256, 3883105, 6788754, 02735044, 4124862, 6856922, 1402256, 4158450, 67784351, 3395664 #### [facility] [address] [place] [address] Hemoglobin (Bld) [Mass/Vol] 13.5 g/dL Normal 12.0-16.0 [facility] Comment on above: Performed By: #### 1 5636066, 6909932, 1143599, 7958126, 38940718, 5702839, 8832048, 5097948, 6860872, 64271002, 0911568 #### [facility] [address] [place] [address] MCH (RBC) [Entitic mass] 29.4 pg Normal 27.0-34.0 [facility] Comment on above: Performed By: #### 1 0511235, 0927815, 4312326, 2983572, 52203099, 9476166, 9396620, 9264615, 7036245, 76961731, 4350298 #### [facility] [address] [address] MCHC (RBC) [Mass/Vol] 33.7 g/dL Normal 33.3-35.7 [facility] Comment on above: Performed By: #### 1 8579977, 7466869, 7631436, 7857266, 14441451, 3383457, 3699790, 9732800, 8236170, 21164081, 6635701 #### [facility] [address] [address] MCV (RBC) [Entitic vol] 87.4 fL Normal 80.0-100.0 [facility] Comment on above: Performed By: #### 1 7721175, 7572957, 8416158, 9861772, 94588837, 6536920, 1363522, 7733975, 9339767, 59165622, 0414480 #### [facility] [address] [place] [address] Platelet mean volume (Bld) [Entitic vol] 8.5 fL Normal 6.4-10.8 [facility] Comment on above: Performed By: #### 1 3554807, 6581955, 2827062, 1248500, 22919562, 3555700, 5814300, 3522909, 0698973, 20103535, 3269776 #### [facility] [address] [place] [address] Platelets (Bld) [#/Vol] 244.0 E9/L Normal 150.0-500.0 [facility] Comment on above: Performed By: #### 1 0743524, 5922725, 6056087, 6097971, 69710372, 5741734, 9401872, 5163613, 1319572, 24963691, 8811349 #### [facility] [address] [place] [address] RBC (Bld) [#/Vol] 4.6 E12/L Normal 4.3-5.9 [facility] Comment on above: Performed By: #### 1 5111626, 9302735, 9803567, 6393525, 02524097, 5289379, 2778226, 1645592, 5322119, 09935010, 1231158 #### [facility] [address] [place] [address] WBC corrected for nucl RBC Auto (Bld) [#/Vol] 7.9 E9/L Normal 4.0-11.0 [facility] Comment on above: Performed By: #### 1 9000514, 1915329, 7945942, 5191518, 24497260, 9713733, 6816045, 5253177, 9061864, 83867912, 3246327 #### [facility] [address] [place] [address] D-Dimeron 01-11-2019 Fibrin D-dimer FEU (PPP) [Mass/Vol] 265 ng/mL Normal 215-500 [facility] Comment on above: Result Comment: [...] infections Liver cirrhosis Performed By: #### 1 6139591, 2267068, 1840644, 5272410, 48439753, 5474894, 6831916, 8308407, 7208461, 01988130, 5048560 #### [facility] [address] [place] [address] ED Clinical Summaryon 2018 ED Clinical Summary [address] [address] ED Clinical Summary Person Information Name: JONES HALEY [facility] Age: 38 Years : 1980 12:00 AM Sex: Female Language: Chadian PCP: Charles Mitchell DO Marital Status: Single Phone: [phone] Visit Id: Visit Reason: Chest pain; CHEST [...] 6:42 PM 01/11/2019 6:42 PM ADDRESS: [address] [place] [id number] [facility] DOC NOTES: MEDICAL INFORMATION: Prescriptions Given: PATIENT EDUCATION INFORMATION: Instructions: Smoking Cessation; Chest Pain (Nonspecific) Follow up: With: Address: When: [address] [id number] Business (1) Within 2 to 3 days Comments: Return to ED if symptoms worsen DIAGNOSIS: 1:Chest pain Normal [facility] ED Note-Physicianon 01-12-20 ED Note-Physician [...] murmur, no edema Respiratory: Lungs CTA, no wheezes/rales/rhonchi , non-labored Chest wall: no tenderness with palpation [...] Charles Mitchell Within 2 to [address] [place] [address] [facility] (1) Additional Instructions: Return to [...] Lymph Auto: 28 % (01/11/19 16:46:00 EDT) Coal Auto: 7 % (01/11/19 16:46:00 EDT) Eos Auto: 1.9 % (01/11/19 16:46:00 EDT) Basophil Auto: 0.8 % (01/11/19 16:46:00 EDT) Neutro Absolute: 4.9 E9/L (01/11/19 16:46:00 EDT) Lymph Absolute: 2.2 E9/L (01/11/19 16:46:00 EDT) Coal Absolute: 0.6 E9/L (01/11/19 16:46:00 EDT) Eos [...] By: Orin Browne DO 01/11/2019 15:54:18 Normal [facility] Comment on above: Result Comment: [...] and skin patches. Some may be available wmjj-ard-[id number] and others require a prescription. ? Antidepressant [...] Document Reviewed: 08/18/2012 ExitCare? Patient Information ?[address] [facility]. This information is not intended to [...] Document Reviewed: 12/13/2008 ExitCare? Patient Information ?2015 [employer]. This information is not intended to replace advice given to you by your health care provider. Make sure you discuss any questions you have with your health care provider. Normal [facility] ED Patient Summaryon 019 ED Patient Summary [address] [address] Patient Discharge Instructions Person Information Name: JONES HALEY Age: 38 Years Arrival Date: 01/11/2019 3:44 PM Discharge Diagnosis: 1:Chest pain Primary Care Physician: Charles Mitchell DO Provider Information Primary Provider: Orin Browne DO Advanced Cloth Baler:None The exam and treatment you received in the Emergency Department were for an urgent problem and are not intended as complete care. It is important that you follow up with a doctor, nurse practitioner, or physician?s sales assistant entertainment and media for ongoing care. If your symptoms become worse or you do not improve as expected and you are unable to reach your usual health care provider, you should return to the Emergency Department. We are available 24 hours a day. JONES HALEY has been given the following list of patient education materials, prescriptions and follow-up instructions: Follow-up Instructions: With: Address: When: Charles Mitchell [address] [place] [address] Business (1) Within 2 to 3 days [...] opioids can be used to help relieve iflsriba-gx-aeqkdq pain and are often prescribed following a [...] guidance from the Food and Drug Administration (www.fda.gov/Drugs/Re sourcesForYou). ? Visit www.cdc.gov/drugoverd ose to learn about the risks of opioids abuse and overdose. ? If you believe you may be struggling with addiction, tell your health cna caregiver and ask for guidance or call SAMHSA?S National Helpline at 6-601-599-HELP. v Source: US Department of Health and Human Services/Center for Disease Control & Prevention [facility] Medications Given: Medication Dose Route No medications found. Medication Information: Medications to Continue with No Changes Other Medications metformin (metformin 500 mg ER Tab) 250 Milligram By Mouth 2 times a day. Comment: Pharmacy Information: Thank you for choosing [facility] Patient Education Materials: Smoking Cessation Quitting smoking [...] and skin patches. Some may be available dzyy-xnt-uvnxiid and others require a prescription. ? Antidepressant [...] Document Reviewed: 08/18/2012 ExitCare? Patient Information ?2014 [employer]. This information is not intended to replace [...] Document Reviewed: 12/13/2008 ExitCare? Patient Information ?2014 [employer]. This information is not intended to replace advice given to you by your health care provider. Make sure you discuss any questions you have with your health care provider. TERA Dorantes NICOLE B , have received the following patient education materials/instruction s and have verbalized understanding: Patient Education Materials: Smoking Cessation; Chest Pain (Nonspecific) Follow-up Instructions: With: Address: When: [address] [address] Business (1) Within 2 to 3 days Comments: Return to ED if symptoms worsen Prescriptions: Patient Signature Date Clinician/Nurse Signature Date 01/11/19 18:42:28 Normal [facility] Progress Note-Nurseon 2018 Progress Note-Nurse Pt explained discharge instructions and voiced understanding. Pt sts she will follow up with her PCP and denies any furthe questions at this time. Normal [facility] Troponin 0 Hr.on 01-11-2019 Troponin I.cardiac [Mass/Vol] ng/mL Normal <=0.03 [facility] Comment on above: Result Comment: New Troponin Assay 10/05/13 [place] Cutoff value > or = 0.03 ng/mL in conjunction with clinical conditions of myocardial infarction. (www.escardio.org/guidelines) Performed By: #### 1 0944085, 1950353, 5285094, 1748827, 36927093, 2862557, 6868740, 0089518, 2111036, 74361178, 6924647 #### [facility] [address] [place] [address] [place] [address] eGFRon 01-11-2019 GFR/1.73 sq M predicted among blacks MDRD (S/P/Bld) [Vol rate/Area] mL/min/{1.73_m2} Normal >=59 [facility] Comment on above: Order Comment: Order added by Discern Expert. Result Comment: eGFR is race adjusted. AA=. Performed By: #### 1 2760382, 5613391, 0106907, 3561684, 58052033, 0485329, 3159967, 2704503, 2148149, 92562384, 9809845 #### [facility] [address] [place] [address] GFR/1.73 sq M predicted among non-blacks MDRD (S/P/Bld) [Vol rate/Area] mL/min/{1.73_m2} Normal >=59 [facility] Comment on above: Order Comment: Order added by Discern Expert. Result Comment: Chief Nurse Anesthetist anthony kidney disease could be indicated at eGFR's of less than 60 mL/min/1.73m2. Kidney failure is indicated at less than 15 mL/min/1.73m2. Performed By: #### 1 9867537, 2025101, 7373014, 9056246, 18878536, 1341730, 8195946, 6260662, 0879421, 52894578, 3602345 #### [facility] [address] [place] [address] SPINE, LUMBOSACRAL CMPLT(TOOTIE DING)on 12-05-2018 SPINE, LUMBOSACRAL CMPLT(BENDING) Patient Name: JONES HALEY STUDY: SPINE, LUMBOSACRAL; CMPLT(BENDING); 12/05/2018 1:47 pm INDICATION: LUMBAR XR. COMPARISON: None. ACCESSION NUMBER(S): [id number] ORDERING CLINICIAN: JUAN LUIS RICHARDSON FINDINGS: No lumbar spine fracture. Scattered small endplate osteophytes. Vertebral body and disc space heights are are maintained. 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 No spondylolisthesis. No instability on flexion or extension. IMPRESSION: Degenerative changes of the lumbar spine without instability. Electronically signed by: EARNESTINE MANUEL MD Normal [facility] Coding Summary.on 09-15-2018 Coding Summary. CODING DATE: 09/15/2018 FINAL [facility] DSC STATUS: Home (Routine DC) PAYOR: Medicaid [...] F17.210 Nicotine dependence, cigarettes, uncomplicated Z79.899 Other retirement (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 However, the narrative phrase printed from the coding software may appear abbreviated, or result in slightly different terminology. Coded By: Luz Judd Date Saved: 09/15/2018 07:15 am Normal [facility] Auto Diffon 09-14-2018 Basophils/100 WBC (Bld) 0.6 % Normal 0.0-2.0 [facility] Comment on above: Order Comment: Order Added by Discern Expert. Performed By: #### 1 5711836, 1182764, 1044430, 3003886, 97837785, 9161825, 3562609, 2912558, 1769574, 90904178, 1886436 #### [facility] [address] [place] [address] Basophils/Leukocytes Auto (Bld) [Pure # fraction] 0.1 E9/L Normal 0.0-0.2 [facility] Comment on above: Order Comment: Order Added by Discern Expert. Performed By: #### 1 6235159, 8792079, 7752779, 3655636, 33475307, 0570264, 3770265, 6663529, 4513742, 00487291, 8011457 #### [facility] [address] [place] [address] Eosinophils/100 WBC (Bld) 2.2 % Normal 0.0-8.0 [facility] Comment on above: Order Comment: Order Added by Discern Expert. Performed By: #### 1 6140293, 6885841, 0288733, 7478134, 15381854, 3733959, 2874220, 5790236, 5850801, 42014279, 3856108 #### [facility] [address] [place] [address] Eosinophils/Leukocytes Auto (Bld) [Pure # fraction] 0.2 E9/L Normal 0.0-0.5 [facility] Comment on above: Order Comment: Order Added by Discern Expert. Performed By: #### 1 1716673, 5219823, 6366552, 1820471, 18406052, 7664557, 5880853, 0608246, 7513677, 78768119, 3291913 #### [facility] [address] [place] [address] Lymphocytes/100 WBC (Bld) 30.6 % Normal 14.0-50.0 [facility] Comment on above: Order Comment: Order Added by Discern Expert. Performed By: #### 1 4463793, 4532870, 9965862, 7314048, 01561919, 4859759, 9075332, 5832748, 1484305, 37540418, 7948348 #### [facility] [address] [place] [address] Lymphocytes/Leukocytes Auto (Bld) [Pure # fraction] 3.0 E9/L Normal 1.0-4.0 [facility] Comment on above: Order Comment: Order Added by Discern Expert. Performed By: #### 1 7375833, 5139287, 3005998, 2578873, 90851229, 7799316, 9917018, 5683458, 2646816, 24395007, 4882358 #### [facility] [address] [place] [address] Monocytes/100 WBC (Bld) 7.2 % Normal 4.0-14.0 [facility] Comment on above: Order Comment: Order Added by Discern Expert. Performed By: #### 1 5487790, 2229758, 0125427, 2993277, 40713336, 2270893, 4850746, 9743316, 5316580, 88084635, 5402823 #### [facility] [address] [place] [address] Monocytes/Leukocytes Auto (Bld) [Pure # fraction] 0.7 E9/L Normal 0.2-1.0 [facility] Comment on above: Order Comment: Order Added by Discern Expert. Performed By: #### 1 3925115, 2576484, 8709673, 7533961, 10481059, 5233365, 8342201, 3732354, 4358375, 53110194, 4814579 #### [facility] [address] [place] [address] Neutrophils/100 WBC (Bld) 59.4 % Normal 36.0-75.0 [facility] Comment on above: Order Comment: Order Added by Discern Expert. Performed By: #### 1 2754760, 4704904, 5576369, 6983515, 58954297, 3059835, 3103010, 4784805, 6338376, 00459227, 5441674 #### [facility] [address] [place] [address] Neutrophils/Leukocytes Auto (Bld) [Pure # fraction] 5.9 E9/L Normal 2.0-7.5 [facility] Comment on above: Order Comment: Order Added by Discern Expert. Performed By: #### 1 7698295, 5154174, 7632034, 0845028, 58667301, 7102113, 0567644, 7236705, 5031283, 74315010, 3545788 #### [facility] [address] [place] [address] BMPon 09-14-2018 Creatinine [Mass/Vol] 0.6 mg/dL Normal 0.5-1.3 [facility] Comment on above: Performed By: #### 1 5223916, 0571067, 5061787, 0981151, 27275185, 1525452, 8765654, 7585748, 2654755, 97365132, 5395419 #### [facility] [address] [place] [address] Urea nitrogen [Mass/Vol] 15 mg/dL Normal 5-21 [facility] Comment on above: Performed By: #### 1 7122471, 4356491, 4731420, 9551502, 25801457, 6218092, 2402649, 0257144, 2795530, 18065853, 9999481 #### [facility] [address] [place] [address] Urea nitrogen/Creatinine [Mass ratio] 25 No Units High 10-20 [facility] Comment on above: Performed By: #### 1 3113336, 0639964, 9639927, 1314426, 44219316, 1593637, 2142907, 2357166, 8677186, 64751260, 2167108 #### [facility] [address] [place] [address] Anion gap [Moles/Vol] 13 mmol/L Normal 6-16 [facility] Comment on above: Performed By: #### 1 5530713, 4808106, 4288991, 4898374, 40383485, 3167953, 5940062, 8560458, 5260124, 07046884, 3206335 #### [facility] [address] [place] [address] Calcium [Mass/Vol] 9.5 mg/dL Normal 8.9-11.1 [facility] Comment on above: Performed By: #### 1 8300017, 8165204, 0909230, 2499378, 35647275, 8659667, 7196545, 8776640, 1203771, 87034317, 7815224 #### [facility] [address] [place] [address] Chloride [Moles/Vol] 103 mmol/L Normal 101-111 [facility] Comment on above: Performed By: #### 1 9038345, 7038055, 3404661, 1158024, 94031227, 3322448, 3114377, 0639638, 2015192, 75219762, 1139955 #### [facility] [address] [place] [address] CO2 [Moles/Vol] 24 mmol/L Normal 21-31 [facility] Comment on above: Performed By: #### 1 3816268, 6382384, 0720375, 9300493, 37566743, 7529002, 9655704, 6345553, 2827454, 83404465, 0668175 #### [facility] [address] [place] [address] Glucose [Mass/Vol] 102 mg/dL Normal 55-199 [facility] Comment on above: Result Comment: If t his glucose result represents a fasting glucose, interpretation should refer to the following reference range: 55-99 mg/dL Performed By: #### 1 4125275, 0575695, 6301930, 8004438, 87559150, 1685895, 9138008, 6333173, 4237957, 83001239, 1094957 #### [facility] [address] [place] [address] Potassium [Moles/Vol] 3.6 mmol/L Normal 3.5-5.3 [facility] Comment on above: Performed By: #### 1 8277954, 0896718, 7122508, 4983429, 09542393, 5977107, 8622314, 7429290, 2409393, 42733472, 5535405 #### [facility] [address] [place] [address] Sodium [Moles/Vol] 136 mmol/L Normal 135-145 [facility] Comment on above: Performed By: #### 1 3596641, 0912328, 6686501, 0280540, 52637005, 1895502, 4059626, 7563564, 4827402, 58256634, 6563680 #### [facility] [address] [place] [address] CBC w/ Auto Diffon 04-24-201 9 Erythrocyte distribution width (RBC) [Ratio] 14.2 % Normal 10.9-14.2 [facility] Comment on above: Performed By: #### 1 6213058, 8486318, 0531316, 6711473, 31440273, 6960729, 9415698, 8122665, 1011225, 61092628, 6572879 #### [facility] [address] [place] [address] Hematocrit (Bld) [Volume fraction] 39.4 % Normal 34.0-46.0 [facility] Comment on above: Performed By: #### 1 4452295, 6346003, 8743857, 9729326, 35693616, 3282939, 1593674, 6243879, 1249799, 40534780, 9436927 #### [facility] [address] [place] [address] Hemoglobin (Bld) [Mass/Vol] 13.3 g/dL Normal 12.0-16.0 [facility] Comment on above: Performed By: #### 1 8291408, 6752832, 5691182, 1191846, 20287908, 7439755, 4557744, 9897129, 8539277, 60749024, 3721059 #### [facility] [address] [place] [address] MCH (RBC) [Entitic mass] 29.2 pg Normal 27.0-34.0 [facility] Comment on above: Performed By: #### 1 1922408, 3342648, 2566440, 7802440, 80006551, 2398085, 5110671, 8793384, 3706327, 57722490, 0355591 #### [facility] [address] [place] [address] MCHC (RBC) [Mass/Vol] 33.8 g/dL Normal 33.3-35.7 [facility] Comment on above: Performed By: #### 1 8953100, 4827819, 5324952, 4563569, 81132397, 7166035, 4588014, 7151602, 1327255, 07561101, 4642522 #### [facility] [address] [place] [address] MCV (RBC) [Entitic vol] 86.6 fL Normal 80.0-100.0 [facility] Comment on above: Performed By: #### 1 9163561, 3198100, 2484734, 2701019, 36607441, 9656167, 8644739, 7861217, 6140121, 16439383, 9625936 #### [facility] [address] [place] [address] Platelet mean volume (Bld) [Entitic vol] 8.8 fL Normal 6.4-10.8 [facility] Comment on above: Performed By: #### 1 5862163, 9709551, 4917987, 6963897, 01195215, 3148810, 7458696, 9711505, 1936221, 00536234, 8732321 #### [facility] [address] [place] [address] Platelets (Bld) [#/Vol] 307.0 E9/L Normal 150.0-500.0 [facility] Comment on above: Performed By: #### 1 4878631, 3426020, 5951728, 4722766, 92854762, 0373304, 8349641, 5436307, 1302359, 91045399, 9493441 #### [facility] [address] [place] [address] RBC (Bld) [#/Vol] 4.6 E12/L Normal 4.3-5.9 [facility] Comment on above: Performed By: #### 1 7152148, 4767093, 8417884, 6180699, 29293209, 6318328, 4947852, 4011771, 8351604, 17743201, 6088139 #### [facility] [address] [place] [address] WBC corrected for nucl RBC Auto (Bld) [#/Vol] 9.9 E9/L Normal 4.0-11.0 [facility] Comment on above: Performed By: #### 1 7611218, 3053686, 7614032, 7844559, 23200859, 2667130, 7716074, 2415726, 9577576, 44613507, 1866841 #### [facility] [address] [place] [address] CKon 09-14-2018 CK [Catalytic activity/Vol] 53 Int._Unit/L Normal 14-261 [facility] Comment on above: Performed By: #### 1 3109804, 1793677, 5350604, 9483396, 06039190, 1338323, 0101446, 4351677, 6717994, 64666281, 4184596 #### [facility] [address] [place] [address] ED Clinical Summaryon 2018 ED Clinical Summary [address] [address] ED Clinical Summary Person Information Name: JONES HALEY [facility] Age: 37 Years : 1980 12:00 AM Sex: Female Language: Chadian PCP: Charles Mitchell DO Marital Status: Single Phone: [phone] Visit Id: Visit Reason: Anxiety; Paraesthesia; NUMBNESS [...] 09/14/2018 12:17 AM 09/14/2018 12:17 AM ADDRESS: [address] [place] [address] [place] [id number] PHYS DOC NOTES: MEDICAL INFORMATION: Prescriptions Given: Prescription Display gabapentin (gabapentin 100 mg Cap) 100 mg = 1 cap(s), Oral, Daily, X 7 day(s), # 7 cap(s), Refills(s) 0, Pharmacy: [facility] gabapentin (gabapentin 100 mg Cap) 100 mg = 1 cap(s), Oral, Daily, X 7 day(s), # 7 cap(s), Refills(s) 0, Pharmacy: [facility]/pharmacy #6177 magnesium oxide (magnesium oxide 400 mg Tab) 400 mg = 1 tab(s), Oral, Daily, X 7 day(s), # 7 tab(s), Refills(s) 0, Pharmacy: [facility] magnesium oxide (magnesium oxide 400 mg Tab) 400 mg = 1 tab(s), Oral, Daily, X 7 day(s), # 7 tab(s), Refills(s) 0, Pharmacy: [facility]/pharmacy #6177 Home Meds Display metformin (metformin 500 mg ER Tab) 250 mg, Oral, BID, Refills(s) 0 PATIENT EDUCATION INFORMATION: Instructions: Paresthesia, Uxrz-vx-Kxnt; Restless Legs Syndrome Follow up: With: Address: When: Sayda Kelley [facility], [address] [place] [address] Business (1) Within 1 to 2 days Comments: neurologist you may also follow up with him With: Address: When: [facility] [address] [place] [address] Business (1) Within 1 to 2 days Comments: Return to ED if symptoms worsen DIAGNOSIS: 1:Restless leg syndrome Normal [facility] ED Note-Nursingon 09-14-2018 ED Note-Nursing Pt up to RR, gait steady. Normal [facility] ED Note-Nursing Aware of need for urine specimen, denies urge at present, states will notify when able to produce sample, will monitor. Normal [facility] ED Note-Physicianon 09-15-19 19 ED Note-Physician [...] day(s), # 7 cap(s), Refills(s) 0, Pharmacy: [facility]/pharmacy #6177 magnesium oxide, 400 mg = 1 tab(s), Oral, Daily, X 7 day(s), # 7 tab(s), Refills(s) 0, Pharmacy: [facility]/pharmacy #6177 Sodium Chloride 0.9% intravenous solution 1,000 [...] Daily Follow-up With When Contact Information Sayda Warren Within 1 to 2 days [facility] [address] [place] [address]- Business (1) Additional Instructions: neurologist you may also follow up with him Charles Mitchell Within 1 to 2 days [address] [place] [address]- Business (1) Additional Instructions: Return to ED if symptoms worsen Patient Education Paresthesia, Xmya-oa-Ency Restless Legs Syndrome Problem List/Past Medical History [...] Lymph Auto: 30.6 % (09/13/18 23:03:00 EDT) Coal Auto: 7.2 % (09/13/18 23:03:00 EDT) Eos Auto: 2.2 % (09/13/18 23:03:00 EDT) Basophil Auto: 0.6 % (09/13/18 23:03:00 EDT) Neutro Absolute: 5.9 E9/L (09/13/18 23:03:00 EDT) Lymph Absolute: 3 E9/L (09/13/18 23:03:00 EDT) Coal Absolute: 0.7 E9/L (09/13/18 23:03:00 EDT) Eos [...] mmol/L (09/13/18 23:03:00 EDT) AGAP: 13 mEq/L (04/23/19 23:03:00 EDT) Calcium Lvl: 9.5 mg/dL (09/13/18 [...] Diagnostic Results No qualifying data available. Normal [facility] Comment on above: Result Comment: [...] Document Reviewed: 01/29/2012 ExitCare? Patient Information ?2015 [employer]. This information is not intended to replace [...] ? Drawing. ? Crawling. ? Worming. ? Bohannon. ? Tingling. ? Pins and needles. ? [...] Document Reviewed: 08/06/2011 ExitCare? Patient Information ?2014 [employer]. This information is not intended to replace advice given to you by your health care provider. Make sure you discuss any questions you have with your health care provider. Normal [facility] ED Patient Summaryon 019 ED Patient Summary [address] [address] Patient Discharge Instructions Person Information Name: JONES HALEY Age: 37 Years Arrival Date: 09/13/2018 10:16 PM Discharge Diagnosis: 1:Restless leg syndrome Primary Care Physician: Charles Mitchell DO Provider Information Primary Provider: Génesis Lozoya DO [employer]:None The exam and treatment you received in the Emergency Department were for an urgent problem and are not intended as complete care. It is important that you follow up with a doctor, nurse practitioner, or physician?s sales assistant entertainment and media for ongoing care. If your symptoms become worse or you do not improve as expected and you are unable to reach your usual health care provider, you should return to the Emergency Department. We are available 24 hours a day. JONES HALEY has been given the following list of patient education materials, prescriptions and follow-up instructions: Follow-up Instructions: With: Address: When: Sayda Kelley [address] [address] Business (1) Within 1 to 2 days Comments: neurologist you may also follow up with him With: Address: When: Charles Mitchell [address] [place] [address] [employer] (1) Within 1 to 2 days Comments: Return to ED if symptoms worsen In the event that this physician does not participate in your insurance network, please consult with your insurance company to find a nearby participating provider. Patient Education Materials: Paresthesia, Evuf-ko-Izau; Restless Legs Syndrome A MESSAGE TO ALL PATIENTS REGARDING OPIOIDS PRESCRIPTION OPIOIDS: WHAT YOU NEED TO KNOW Prescription opioids can be used to help relieve zkbkmdqw-nf-rqhlha pain and are often prescribed following a [...] guidance from the Food and Drug Administration (www.fda.gov/Drugs/Re sourcesForYou). ? Visit www.cdc.gov/drugoverd ose to learn about the risks of opioids abuse and overdose. ? If you believe you may be struggling with addiction, tell your health cna caregiver and ask for guidance or call [facility]?S National Helpline at 3-126-323-XVUB. t Source: US Department of Health and Human Services/Center for Disease Control & Prevention [facility] Medications Given: Medication Dose Route Sodium Chloride 0.9% intravenous solution 1000.00 mL Initial Volume 1000.00 mL/hr IV Piggyback Left Mid Forearm Medication Information: New Medications [facility]/pharmacy #[id number], [address], [place] [id number], [phone] gabapentin (gabapentin 100 mg Cap) 1 Capsules By Mouth every day for 7 Days. Refills: 0. magnesium oxide (magnesium oxide 400 mg Tab) 1 Tabs By Mouth every day for 7 Days. Refills: 0. [facility], [address], [place] [id number], [phone] gabapentin (gabapentin 100 mg Cap) 1 Capsules By Mouth every day for 7 Days. Refills: 0. magnesium oxide (magnesium oxide 400 mg Tab) 1 Tabs By Mouth every day for 7 Days. Refills: 0. Medications to Continue with No Changes Other Medications metformin (metformin 500 mg ER Tab) 250 Milligram By Mouth 2 times a day. Comment: Pharmacy Information: Thank you for choosing [facility] Patient Education Materials: Paresthesia Paresthesia is a [...] Document Reviewed: 01/29/2012 ExitCare? Patient Information ?2015 [employer]. This information is not intended to replace [...] ? Drawing. ? Crawling. ? Worming. ? Bohannon. ? Tingling. ? Pins and needles. ? [...] Document Reviewed: 08/06/2011 ExitCare? Patient Information ?2015 [employer]. This information is not intended to replace advice given to you by your health care provider. Make sure you discuss any questions you have with your health care provider. TERA Dorantes NICOLE B , have received the following patient education materials/instruction s and have verbalized understanding: Patient Education Materials: Paresthesia, Uykn-er-Jlla; Restless Legs Syndrome Follow-up Instructions: With: Address: When: Sayda Kelley [place] [address] [place] [address] Business (1) Within 1 to 2 days Comments: neurologist you may also follow up with him With: Address: When: [facility] [address] [place] [address] [employer] (1) Within 1 to 2 days Comments: Return to ED if symptoms worsen Prescriptions: [gabapentin (gabapentin 100 mg Cap)] [gabapentin (gabapentin 100 mg Cap)] [magnesium oxide (magnesium oxide 400 mg Tab)] [magnesium oxide (magnesium oxide 400 mg Tab)] Patient Signature Date Clinician/Nurse Signature Date 09/14/18 00:21:38 Normal [facility] Hep Func Panelon 09-14-2018 Bilirubin.direct [Mass/Vol] UTC Abnormal 0.1-0.9 [facility] Comment on above: Result Comment: Resu lt verified by Discern Rule. Performed result UTC (Unable to Calculate) was sent as an Alpha code due the inability to calculate a valid numeric value. Performed By: #### 1 7672891, 5929439, 1692075, 4685244, 95295842, 9606314, 7749965, 8871347, 7152261, 31140927, 1582011 #### [facility] [address] [place] [address] Albumin [Mass/Vol] 1.1 g/dL Normal 1.1-2.2 [facility] Comment on above: Performed By: #### 1 6717707, 3710808, 6300641, 1206730, 02176421, 5445192, 6292206, 9899589, 0319589, 34187271, 9621148 #### [facility] [address] [place] [address] Albumin [Mass/Vol] 4.1 g/dL Normal 3.3-5.0 [facility] Comment on above: Performed By: #### 1 4223090, 4365207, 6182839, 7498227, 10307844, 1336439, 1295407, 2228390, 4474509, 97833356, 4044302 #### [facility] [address] [place] [address] ALP [Catalytic activity/Vol] 69 Int._Unit/L Normal 21-98 [facility] Comment on above: Performed By: #### 1 6704156, 9575035, 8111273, 1893974, 50718591, 1138215, 8523339, 6882013, 0773808, 31864564, 6035272 #### [facility] [address] [place] [address] ALT No additional P-5'-P [Catalytic activity/Vol] 27 Int._Unit/L Normal 6-46 [facility] Comment on above: Performed By: #### 1 3993568, 4628071, 4745456, 0050856, 24856624, 5552586, 1761906, 4216268, 2976525, 87480048, 1258789 #### [facility] [address] [place] [address] AST [Catalytic activity/Vol] 16 Int._Unit/L Normal 5-43 [facility] Comment on above: Performed By: #### 1 7754140, 5204131, 7911702, 7982986, 95128921, 4055654, 4116017, 7328790, 3684543, 05154445, 5296387 #### [facility] [address] [place] [address] Bilirubin [Mass/Vol] 0.5 mg/dL Normal 0.0-1.1 [facility] Comment on above: Performed By: #### 1 4870066, 8539677, 7655293, 9680395, 74660665, 6345033, 9545854, 4868517, 1048366, 41084236, 9458423 #### [facility] [address] [place] [address] Bilirubin.direct [Mass/Vol] mg/dL Normal 0.1-0.4 [facility] Comment on above: Performed By: #### 1 2646635, 2593628, 5253162, 5088904, 83837584, 0805312, 7925909, 8383152, 6802598, 89159487, 8895472 #### [facility] [address] [place] [address] Globulin (S) [Mass/Vol] 3.7 g/dL Normal 1.4-4.0 [facility] Comment on above: Performed By: #### 1 8719276, 5619782, 0146050, 9630353, 97780290, 8824861, 6925286, 8959077, 2746344, 26012377, 6880468 #### [facility] [address] [place] [address] Protein [Mass/Vol] 7.8 g/dL Normal 6.0-7.8 [facility] Comment on above: Performed By: #### 1 1721411, 4768432, 1356491, 2878406, 53278166, 9024524, 0340720, 2517817, 5048572, 29302240, 2532351 #### [facility] [address] [place] [address] Magnesiumon 09-14-2018 Magnesium [Mass/Vol] 1.9 mg/dL Normal 1.3-2.4 [facility] Comment on above: Performed By: #### 1 1861082, 2048187, 7006128, 0035854, 48151713, 1018070, 1342350, 9203928, 7630763, 56026982, 7328176 #### [facility] [address] [place] [address] Myoglobinon 09-14-2018 Myoglobin [Mass/Vol] 9 ng/mL Normal <=69 [facility] Comment on above: Performed By: #### 1 1898341, 1896740, 9693716, 1454421, 57833723, 9177016, 0747202, 9767410, 2358966, 37208642, 5520714 #### [facility] [address] [place] [address] PT & PTTon 09-14-2018 aPTT Coag (PPP) [Time] 34.5 second(s) Normal 25.1-36.5 [facility] Comment on above: Result Comment: Hepa rin therapeutic range (represented by Anti-Factor Xa activity of 0.2 - 0.4 U/mL) corresponds to PTT of 56.6 - 109.0 sec. Performed By: #### 1 7864537, 8996939, 7211859, 8593394, 34876302, 8500802, 5569861, 9956157, 9570261, 83422812, 1947127 #### [facility] [address] [place] [address] INR Coag (PPP) [Relative time] 1.0 {INR} [facility] Comment on above: Result Comment: INR results are specifically intended to assess patients stabilized on long-term Anticoagulation therapy suggested INR?s ?Less Intensive Anticoagulation? 2.0 ? 3.0 Conventional Range 3.0 ? 4.5 Performed By: #### 1 6116628, 5038062, 2586316, 7897665, 52646889, 4599153, 8123759, 3571306, 8984663, 39458639, 0011684 #### [facility] [address] [place] [address] PT Coag (PPP) [Time] 11.2 second(s) Normal 10.2-12.9 [facility] Comment on above: Performed By: #### 1 3505074, 2368399, 2308157, 1184962, 80549116, 8667598, 6333799, 9290891, 5642385, 47135780, 4604954 #### [facility] [address] [place] [address] Phosphoruson 09-14-2018 Phosphate [Mass/Vol] 3.8 mg/dL Normal 1.9-4.6 [facility] Comment on above: Performed By: #### 1 4966804, 2130623, 5582563, 6888053, 90022110, 0170924, 0753953, 7379685, 1471786, 70190566, 5152166 #### [facility] [address] [place] [address] Troponin 0 Hr.on 09-14-2018 Troponin I.cardiac [Mass/Vol] ng/mL Normal <=0.03 [facility] Comment on above: Result Comment: New Troponin Assay 10/05/13 [place] Cutoff value > or = 0.03 ng/mL in conjunction with clinical conditions of myocardial infarction. (www.escardio.org/guidelines) Performed By: #### 1 2473273, 0857248, 9910761, 3486594, 11845283, 4096937, 7268571, 2046546, 8117769, 44229239, 0184621 #### [facility] [address] [place] [address] UA With Cult Reflexon 2018 Bacteria LM Ql (Urine sed) TRACE Normal Trace [facility] Comment on above: Performed By: #### 1 3850844, 1382990, 5578125, 1335472, 13162868, 6432145, 2687459, 1985808, 9555599, 28507338, 6229841 #### [facility] [address] [place] [address] Bilirubin Ql (U) Negative Normal Negative [facility] Comment on above: Performed By: #### 1 7544314, 0255927, 1949378, 4538804, 98705308, 4911021, 9509000, 5755291, 3427849, 36278623, 4906930 #### [facility] [address] [place] [address] Clarity (U) CLEAR Normal Clear [facility] Comment on above: Performed By: #### 1 [id number], [id number], 7663585, 3003943, 86298445, 1447628, 2703448, 6977002, 0502882, 02002189, 6764040 #### [facility] [address] [place] [address] Color (U) YELLOW Normal Yellow [facility] Comment on above: Performed By: #### 1 [id number], 7203096, 8659386, 1903666, 62059320, 4496862, 8395331, 2464430, 8865054, 63691699, 8653242 #### [facility] [address] [place] [address] Epithelial cells.squamous LM.HPF (Urine sed) [#/Area] 0-2 Normal 0-2 [facility] Comment on above: Performed By: #### 1 [id number], 4377807, 3387736, 1829190, 54902743, 3253596, 2824003, 1965802, 9771710, 12043816, 6189953 #### [facility] [address] [place] [address] Glucose Test strip (U) [Mass/Vol] Negative Normal Negative [facility] Comment on above: Performed By: #### 1 [id number], 2856304, 3409963, 5485312, 63621838, 1681356, 7104213, 0221173, 8366514, 75169982, 3040529 #### [facility] [address] [place] [address] Hemoglobin Ql (U) Negative Normal Negative [facility] Comment on above: Performed By: #### 1 9355403, 1565470, 3171116, 8260925, 89671693, 6229538, 4181158, 2947441, 8880185, 51301689, 9893076 #### [facility] [address] [place] [address] Ketones (U) [Mass/Vol] Negative Normal Negative [facility] Comment on above: Performed By: #### 1 [id number], 9558657, 1658440, 3729007, 10854106, 4776998, 5426197, 0227321, 1538025, 84922999, 9046576 #### [facility] [address] [place] [address] [place].plasma/[place] .RBC (Bld) [Mass ratio] 0-3 Normal 0-3 [facility] Comment on above: Performed By: #### 1 4265219, 5131885, 9561983, 0753677, 09863910, 4156226, 1302360, 8785272, 7224829, 89700606, 9419092 #### [facility] [address] [place] [address] Mucus Ql (Urine sed) TRACE Normal [facility] Comment on above: Performed By: #### 1 [id number], 1104256, 0809023, 1922633, 52875262, 4123580, 6159134, 5658957, 4296700, 10874693, 9393231 #### [facility] [address] [place] [address] Nitrite Ql (U) Negative Normal Negative [facility] Comment on above: Performed By: #### 1 4863146, 7352045, 8357702, 7742392, 20767530, 4205676, 3673422, 4228237, 6326850, 09555220, 1659235 #### [facility] [address] [place] [address] pH (U) 6.0 [pH] 5.0-9.0 [facility] Comment on above: Performed By: #### 1 2255884, 9946398, 2239121, 2698839, 75533845, 9791730, 2308363, 6948228, 2010445, 90732140, 1084591 #### [facility] [address] [place] [address] Protein (U) [Mass/Vol] Negative Normal Negative [facility] Comment on above: Performed By: #### 1 4573975, 8589771, 7387530, 4718028, 66208155, 2240998, 8676100, 3832577, 4674381, 29053218, 6285568 #### [facility] [address] [place] [address] Specific gravity (U) [Rel density] 1.010 1.005-1.030 [facility] Comment on above: Performed By: #### 1 9427359, 7173839, 2974680, 2406410, 12976493, 9353126, 1933381, 2251555, 1786656, 30405817, 3473500 #### [facility] [address] [place] [address] UA Spec Desc Clean Catch Normal [facility] Comment on above: Performed By: #### 1 0689879, 2725254, 0195218, 6662798, 58437010, 3921274, 4519398, 5043063, 2916540, 59790304, 6502783 #### [facility] [address] [place] [address] Urobilinogen Qn (U) 0.2 {Carmella'U}/dL Normal 0.0-1.0 [facility] Comment on above: Performed By: #### 1 9146220, 9790496, 5117509, 4005671, 10649261, 4288481, 5561327, 6575881, 9117134, 12003666, 0914763 #### [facility] [address] [place] [address] WBC Auto Ql (U) Negative Normal Negative [facility] Comment on above: Performed By: #### 1 4855302, 5707022, 7373551, 7895307, 20789768, 6692007, 8770507, 5983232, 7126590, 79286569, 4448856 #### [facility] [address] [place] [address] WBC LM.HPF (Urine sed) [#/Area] 0-5 Normal 0-5 [facility] Comment on above: Performed By: #### 1 4678305, 4553274, 9348129, 9428933, 65973679, 2817692, 0329116, 2190258, 6497580, 89831042, 7613153 #### [facility] [address] [place] [address] XR Chest Single Viewon 09-14 XR Chest [...] M.D. Transcribed by: minoo Technologist: AP Normal [facility] XR FOOT LEFT (MIN 3 VIEWS)on 09-14-2018 XR FOOT LEFT (MIN 3 VIEWS) Radiology exam is complete. No Radiologist dictation. Please follow up with ordering provider. Final result Normal [facility] XR FOOT RIGHT (MIN 3 VIEWS)o n 09-14-2018 XR FOOT RIGHT (MIN 3 VIEWS) Radiology exam is complete. No Radiologist dictation. Please follow up with ordering provider. Final result Normal [facility] eGFRon 09-14-2018 GFR/1.73 sq M predicted among blacks MDRD (S/P/Bld) [Vol rate/Area] mL/min/{1.73_m2} Normal >=59 [facility] Comment on above: Order Comment: Order added by Discern Expert. Result Comment: eGFR is race adjusted. AA=. Performed By: #### 1 [id number], 9864189, 5305832, 9269924, 88146213, 1969515, 0442959, 9573037, 9069531, 67856315, 9634960 #### [facility] [address] [place] [address] GFR/1.73 sq M predicted among non-blacks MDRD (S/P/Bld) [Vol rate/Area] mL/min/{1.73_m2} Normal >=59 [facility] Comment on above: Order Comment: Order added by Discern Expert. Result Comment: Chief Nurse Anesthetist anthony kidney disease could be indicated at eGFR's of less than 60 mL/min/1.73m2. Kidney failure is indicated at less than 15 mL/min/1.73m2. Performed By: #### 1 [id number], 4841785, 0687768, 6441373, 90319578, 6049035, 9257079, 3251531, 3548943, 35814981, 2148712 #### [facility] [address] [place] [address] Vital Signs Date Time Vital Sign Value Performing Clinician Facility 04-06-2024 10:00-0500 Body height 170.2 cm Judy Arciniega MD Work Phone: [facility] 04-06-2024 10:00-0500 Body mass index (BMI) [Ratio] 43.07 kg/m2 Judy Arciniega MD Work Phone: [facility] 04-06-2024 10:00-0500 Body temperature 97 [degF] Judy Arciniega MD Work Phone: [facility] 04-06-2024 10:00-0500 Body weight 124.74 kg Judy Arciniega MD Work Phone: [facility] 04-06-2024 10:00-0500 Diastolic blood pressure 80 mm[Hg] Judy Arciniega MD Work Phone: [facility] 04-06-2024 10:00-0500 Heart rate 86 /min Judy Arciniega MD Work Phone: [facility] 04-06-2024 10:00-0500 SaO2% (BldA) [Mass fraction] 97 % Judy Arciniega MD Work Phone: [facility] 04-06-2024 10:00-0500 Systolic blood pressure 136 mm[Hg] Judy Arciniega MD Work Phone: [facility] 04-02-2024 13:27-0500 Body mass index (BMI) [Ratio] 45.42 kg/m2 Judah Mike DO Work Phone: [facility] 04-02-2024 13:27-0500 Body temperature 98.71 [degF] Judah Mike DO Work Phone: [facility] 04-02-2024 13:27-0500 Body weight 131.54 kg Judah Mike DO Work Phone: [facility] 04-02-2024 13:27-0500 Diastolic blood pressure 90 mm[Hg] Judah Rashid DO Work Phone: [facility] 04-02-2024 13:27-0500 Heart rate 78 /min Judah Mike DO Work Phone: [facility] 04-02-2024 13:27-0500 SaO2% (BldA) [Mass fraction] 99 % Judah Mike DO Work Phone: [facility] 04-02-2024 13:27-0500 Systolic blood pressure 132 mm[Hg] Judah Mike DO Work Phone: [facility] 03-23-2024 14:35-0400 Body mass index (BMI) [Ratio] 44.17 kg/m2 Oly Plascencia PA Work Phone: [facility] 03-23-2024 14:35-0400 Body weight 127.91 kg Oly Plascencia PA Work Phone: [facility] 03-23-2024 14:35-0400 Diastolic blood pressure 76 mm[Hg] Oly Plascencia PA Work Phone: [facility] 03-23-2024 14:35-0400 Systolic blood pressure 122 mm[Hg] Oly Plascencia PA Work Phone: [facility] 03-23-2024 10:11-0400 Body height 170.2 cm Ma Sand Work Phone: [facility] 03-23-2024 10:11-0400 Body mass index (BMI) [Ratio] 43.06 kg/m2 Ma Sand Work Phone: [facility] 03-23-2024 10:11-0400 Body temperature 97.59 [degF] Ma Sand Work Phone: [facility] 03-23-2024 10:11-0400 Body weight 124.74 kg Ma Sand Work Phone: [facility] 03-23-2024 10:11-0400 Diastolic blood pressure 85 mm[Hg] Ma Sand Work Phone: [facility] 03-23-2024 10:11-0400 Heart rate 71 /min Ma Sand Work Phone: [facility] 03-23-2024 10:11-0400 Respiratory rate 16 /min Cele Sand Work Phone: [facility] 03-23-2024 10:11-0400 SaO2% (BldA) [Mass fraction] 94 % Ma Sand Work Phone: [facility] 03-23-2024 10:11-0400 Systolic blood pressure 135 mm[Hg] Ma Sand Work Phone: [facility] 03-16-2024 11:24-0400 Body mass index (BMI) [Ratio] 43.67 kg/m2 Luan Skip DO Work Phone: [facility] 03-16-2024 11:24-0400 Body weight 126.46 kg Luan Skip DO Work Phone: [facility] 03-16-2024 11:24-0400 Diastolic blood pressure 70 mm[Hg] Luan Skip DO Work Phone: [facility] 03-16-2024 11:24-0400 Systolic blood pressure 120 mm[Hg] Luna Skip DO Work Phone: [facility] 03-16-2024 09:20-0400 Body height 170.18 cm POST TRONIC MACHINE OPERATOR-C Gay Enciso Work Phone: [facility] 03-16-2024 09:20-0400 Body mass index (BMI) [Ratio] 43 kg/m2 POST TRONIC MACHINE OPERATOR-C Gay Enciso Work Phone: [facility] 03-16-2024 09:20-0400 Body weight 124.73 kg POST TRONIC MACHINE OPERATOR-C Gay Enciso Work Phone: [facility] 02-21-2024 11:04-0400 Body temperature 97.2 [degF] Cele Marshall Work Phone: [facility] 02-21-2024 11:04-0400 Diastolic blood pressure 68 mm[Hg] Ma Sand Work Phone: [facility] Comment on above: manual 02-21-2024 11:04-0400 Heart rate 95 /min Ma Sand Work Phone: [facility] 02-21-2024 11:04-0400 Respiratory rate 16 /min Ma Sand Work Phone: [facility] 02-21-2024 11:04-0400 SaO2% (BldA) [Mass fraction] 98 % Ma Sand Work Phone: [facility] 02-21-2024 11:04-0400 Systolic blood pressure 102 mm[Hg] Ma Sand Work Phone: [facility] Comment on above: manual 02-16-2024 09:23-0400 Diastolic blood pressure 72 mm[Hg] POST TRONIC MACHINE OPERATOR-C Gay Fernie Work Phone: [facility] 02-16-2024 09:23-0400 Heart rate 70 /min POST TRONIC MACHINE OPERATOR-C Gay Fernie Work Phone: [facility] 02-16-2024 09:23-0400 Respiratory rate 16 /min POST TRONIC MACHINE OPERATOR-C Gay Fernie Work Phone: [facility] 02-16-2024 09:23-0400 SaO2% (BldA) [Mass fraction] 96 % POST TRONIC MACHINE OPERATOR-C Gay Fernie Work Phone: [facility] 02-16-2024 09:23-0400 Systolic blood pressure 126 mm[Hg] POST TRONIC MACHINE OPERATOR-C Gay Fernie Work Phone: [facility] 02-16-2024 07:27-0400 Body height 170.18 cm POST TRONIC MACHINE OPERATOR-C Gay Fernie Work Phone: [facility] 02-16-2024 07:27-0400 Body weight 122.46 kg POST TRONIC MACHINE OPERATOR-C Gay Fernie Work Phone: [facility] 01-28-2024 11:31-0400 Body weight 126.6 kg [facility] 01-28-2024 11:31-0400 Diastolic blood pressure 80 mm[Hg] [facility] 01-28-2024 11:31-0400 Heart rate 69 /min [facility] 01-28-2024 11:31-0400 SaO2% (BldA) [Mass fraction] 98 % [facility] 01-28-2024 11:31-0400 Systolic blood pressure 120 mm[Hg] [facility] 01-25-2024 11:30-0400 Body temperature 97.39 [degF] Ma Sand Work Phone: [facility] 01-25-2024 11:30-0400 Diastolic blood pressure 67 mm[Hg] Ma Sand Work Phone: [facility] 01-25-2024 11:30-0400 Heart rate 68 /min Ma Sand Work Phone: [facility] 01-25-2024 11:30-0400 Respiratory rate 16 /min Ma Sand Work Phone: [facility] 01-25-2024 11:30-0400 SaO2% (BldA) [Mass fraction] 99 % Ma Sand Work Phone: [facility] 01-25-2024 11:30-0400 Systolic blood pressure 92 mm[Hg] Ma Sand Work Phone: [facility] 12-27-2023 11:16-0400 Diastolic blood pressure 68 mm[Hg] Neda Liz PA-C Work Phone: [facility] 12-27-2023 11:16-0400 Systolic blood pressure 98 mm[Hg] Neda Liz PA-C Work Phone: [facility] 12-27-2023 11:02-0400 Body height 170.2 cm Neda Liz PA-C Work Phone: [facility] 12-27-2023 11:02-0400 Body mass index (BMI) [Ratio] 43.08 kg/m2 Neda Liz PA-C Work Phone: [facility] 12-27-2023 11:02-0400 Body temperature 97.7 [degF] Neda Liz PA-C Work Phone: [facility] 12-27-2023 11:02-0400 Body weight 124.8 kg Neda Rubioer PA-C Work Phone: [facility] 12-27-2023 11:02-0400 Heart rate 89 /min Neda Rubioer PA-C Work Phone: [facility] 12-27-2023 11:02-0400 Respiratory rate 16 /min Neda Rubioer PA-C Work Phone: [facility] 12-27-2023 11:02-0400 SaO2% (BldA) [Mass fraction] 98 % Neda Rubioer PA-C Work Phone: [facility] 12-16-2023 14:13-0400 Body height 170.18 cm [facility] 12-16-2023 14:13-0400 Body mass index (BMI) [Ratio] 42.7 kg/m2 [facility] 12-16-2023 14:13-0400 Body temperature 98.6 [degF] [facility] 12-16-2023 14:13-0400 Body weight 123.83 kg [facility] 12-16-2023 14:13-0400 Diastolic blood pressure 73 mm[Hg] [facility] 12-16-2023 14:13-0400 Heart rate 75 /min [facility] 12-16-2023 14:13-0400 Systolic blood pressure 106 mm[Hg] [facility] 11-29-2023 13:43-0400 Body temperature 97.59 [degF] Ma Sand Work Phone: [facility] 11-29-2023 13:43-0400 Diastolic blood pressure 51 mm[Hg] Ma Sand Work Phone: [facility] 11-29-2023 13:43-0400 Heart rate 73 /min Ma Sand Work Phone: [facility] 11-29-2023 13:43-0400 Respiratory rate 16 /min Ma Sand Work Phone: [facility] 11-29-2023 13:43-0400 SaO2% (BldA) [Mass fraction] 96 % Ma Sand Work Phone: [facility] 11-29-2023 13:43-0400 Systolic blood pressure 83 mm[Hg] Ma Sand Work Phone: [facility] 11-04-2023 13:55-0400 Body height 170.18 cm [facility] 11-04-2023 13:55-0400 Body temperature 97.3 [degF] [facility] [place] [facility] 11-04-2023 13:55-0400 Diastolic blood pressure 54 mm[Hg] [facility] 11-04-2023 13:55-0400 Heart rate 62 /min [facility] 11-04-2023 13:55-0400 Systolic blood pressure 104 mm[Hg] [facility] 10-27-2023 14:44-0400 Body temperature 97 [degF] Ma Sand Work Phone: [facility] 10-27-2023 14:44-0400 Diastolic blood pressure 72 mm[Hg] Ma Sand Work Phone: [facility] 10-27-2023 14:44-0400 Heart rate 97 /min Ma Sand Work Phone: [facility] 10-27-2023 14:44-0400 Respiratory rate 18 /min Ma Sand Work Phone: [facility] 10-27-2023 14:44-0400 SaO2% (BldA) [Mass fraction] 97 % Ma Sand Work Phone: [facility] 10-27-2023 14:44-0400 Systolic blood pressure 110 mm[Hg] Ma Sand Work Phone: [facility] 10-20-2023 13:10-0400 Body height 170.18 cm [facility] 10-20-2023 13:10-0400 Body mass index (BMI) [Ratio] 43.2 kg/m2 [facility] 10-20-2023 13:10-0400 Body temperature 97.3 [degF] [facility] 10-20-2023 13:10-0400 Body weight 125.19 kg [facility] 10-20-2023 13:10-0400 Diastolic blood pressure 54 mm[Hg] [facility] 10-20-2023 13:10-0400 Heart rate 74 /min [facility] 10-20-2023 13:10-0400 Systolic blood pressure 111 mm[Hg] [facility] 09-30-2023 10:48-0400 Body temperature 97 [degF] Ma Sand Work Phone: [facility] 09-30-2023 10:48-0400 Diastolic blood pressure 82 mm[Hg] Ma Sand Work Phone: [facility] 09-30-2023 10:48-0400 Heart rate 71 /min Ma Sand Work Phone: [facility] 09-30-2023 10:48-0400 Respiratory rate 18 /min Ma Sand Work Phone: [facility] 09-30-2023 10:48-0400 SaO2% (BldA) [Mass fraction] 97 % Ma Sand Work Phone: [facility] 09-30-2023 10:48-0400 Systolic blood pressure 132 mm[Hg] Ma Sand Work Phone: [facility] 09-22-2023 14:41-0400 Body weight 117.93 kg [facility] 08-31-2023 10:34-0400 Body temperature 97.3 [degF] Ma Sand Work Phone: [facility] 08-31-2023 10:34-0400 Diastolic blood pressure 66 mm[Hg] Ma Sand Work Phone: [facility] 08-31-2023 10:34-0400 Heart rate 68 /min Ma Sand Work Phone: [facility] 08-31-2023 10:34-0400 Respiratory rate 18 /min Ma Sand Work Phone: [facility] 08-31-2023 10:34-0400 SaO2% (BldA) [Mass fraction] 99 % Ma Sand Work Phone: [facility] 08-31-2023 10:34-0400 Systolic blood pressure 105 mm[Hg] Ma Sand Work Phone: [facility] 08-05-2023 11:15-0400 Body temperature 97.39 [degF] Ma Sand Work Phone: [facility] 08-05-2023 11:15-0400 Diastolic blood pressure 41 mm[Hg] Ma Sand Work Phone: [facility] 08-05-2023 11:15-0400 Heart rate 68 /min Ma Sand Work Phone: [facility] 08-05-2023 11:15-0400 Respiratory rate 18 /min Ma Sand Work Phone: [facility] 08-05-2023 11:15-0400 SaO2% (BldA) [Mass fraction] 98 % Ma Sand Work Phone: [facility] 08-05-2023 11:15-0400 Systolic blood pressure 98 mm[Hg] Ma Sand Work Phone: [facility] 07-13-2023 11:49-0500 Body temperature 97.5 [degF] Ma Sand Work Phone: [facility] 07-13-2023 11:49-0500 Diastolic blood pressure 74 mm[Hg] Ma Sand Work Phone: [facility] 07-13-2023 11:49-0500 Heart rate 83 /min Ma Sand Work Phone: [facility] 07-13-2023 11:49-0500 Respiratory rate 18 /min Ma Sand Work Phone: [facility] 07-13-2023 11:49-0500 SaO2% (BldA) [Mass fraction] 96 % Ma Sand Work Phone: [facility] 07-13-2023 11:49-0500 Systolic blood pressure 109 mm[Hg] Ma Sand Work Phone: [facility] 07-13-2023 10:01-0500 Diastolic blood pressure 65 [...] kg/m2 Juan Luis Richardson MD Work Phone: [facility] 07-06-2023 14:48-0500 Body weight 119.3 kg Juan Luis Richardson MD Work Phone: [facility] 06-09-2023 08:45-0500 Body height 170.2 cm Michelle Britton APRN-GEAR KEEPER Work Phone: [facility] 06-09-2023 08:45-0500 Body mass index (BMI) [Ratio] 44.48 kg/m2 Michelle Britton APRN-GEAR KEEPER Work Phone: [facility] 06-09-2023 08:45-0500 Body weight 128.82 kg Michelle Britton APRN-GEAR KEEPER Work Phone: [facility] 06-09-2023 08:45-0500 Diastolic blood pressure 82 mm[Hg] Michelle Britton APRN-GEAR KEEPER Work Phone: [facility] 06-09-2023 08:45-0500 Heart rate 80 /min Michelle Mitali 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 Work Phone: [facility] 06-09-2023 08:45-0500 Systolic blood pressure 146 mm[Hg] Michelle Britton 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 Work Phone: [facility] 05-26-2023 17:17-0500 Body weight 123.83 kg Christie Phan MD Work Phone: [facility] 04-26-2023 14:42-0500 Body weight 125.19 kg Christie Phan MD Work Phone: [facility] 03-19-2023 11:16-0400 Body temperature 97.7 [degF] Ma Sand Work Phone: [facility] 03-19-2023 11:16-0400 Diastolic blood pressure 54 mm[Hg] Ma Sand Work Phone: [facility] 03-19-2023 11:16-0400 Heart rate 75 /min Ma Sand Work Phone: [facility] 03-19-2023 11:16-0400 Respiratory rate 16 /min Ma Sand Work Phone: [facility] 03-19-2023 11:16-0400 SaO2% (BldA) [Mass fraction] 96 % Ma Sand Work Phone: [facility] 03-19-2023 11:16-0400 Systolic blood pressure 111 mm[Hg] Ma Sand Work Phone: [facility] 02-19-2023 10:56-0400 Body height 170.2 cm Jsoe Najera MD Work Phone: [facility] 02-19-2023 10:56-0400 Body temperature 97.39 [degF] Jose Najera MD Work Phone: [facility] 02-19-2023 10:56-0400 Body weight 120.75 kg Jose Najera MD Work Phone: [facility] 02-19-2023 10:56-0400 Diastolic blood pressure 69 mm[Hg] Jose Najera MD Work Phone: [facility] 02-19-2023 10:56-0400 Heart rate 110 /min Jose Najera MD Work Phone: [facility] 02-19-2023 10:56-0400 Respiratory rate 16 /min Jose Najera MD Work Phone: [facility] 02-19-2023 10:56-0400 SaO2% (BldA) [Mass fraction] 96 % Jose Najera MD Work Phone: [facility] 02-19-2023 10:56-0400 Systolic blood pressure 132 mm[Hg] Jose Najera MD Work Phone: [facility] 01-22-2023 12:09-0400 Diastolic blood pressure 76 mm[Hg] Ma Sand Work Phone: [facility] 01-22-2023 12:09-0400 Systolic blood pressure 107 mm[Hg] Ma Sand Work Phone: [facility] 01-22-2023 12:08-0400 Body temperature 97.59 [degF] Ma Sand Work Phone: [facility] 01-22-2023 12:08-0400 Heart rate 102 /min Ma Sand Work Phone: [facility] 01-22-2023 12:08-0400 Respiratory rate 16 /min Ma Sand Work Phone: [facility] 01-22-2023 12:08-0400 SaO2% (BldA) [Mass fraction] 97 % Ma Sand Work Phone: [facility] 11-19-2022 11:00-0400 Body temperature 97.2 [degF] Ma Sand Work Phone: [facility] 11-19-2022 11:00-0400 Diastolic blood pressure 54 mm[Hg] Ma Sand Work Phone: [facility] 11-19-2022 11:00-0400 Heart rate 98 /min Ma Sand Work Phone: [facility] 11-19-2022 11:00-0400 Respiratory rate 16 /min Ma Sand Work Phone: [facility] 11-19-2022 11:00-0400 SaO2% (BldA) [Mass fraction] 98 % Ma Sand Work Phone: [facility] 11-19-2022 11:00-0400 Systolic blood pressure 126 mm[Hg] Ma Sand Work Phone: [facility] 10-22-2022 11:51-0400 Body height 170.2 cm Ma Sand Work Phone: [facility] 10-22-2022 11:51-0400 Body weight 120.66 kg Ma Sand Work Phone: [facility] 10-22-2022 11:51-0400 Respiratory rate 16 /min Ma Sand Work Phone: [facility] 10-22-2022 10:50-0400 Body height 170.2 cm Jose Najera MD Work Phone: [facility] 10-22-2022 10:50-0400 Body temperature 97 [degF] Jose Najera MD Work Phone: [facility] 10-22-2022 10:50-0400 Body weight 120.75 kg Jose Najera MD Work Phone: [facility] 10-22-2022 10:50-0400 Diastolic blood pressure 55 mm[Hg] Jose Najera MD Work Phone: [facility] 10-22-2022 10:50-0400 Heart rate 78 /min Jose Najera MD Work Phone: [facility] 10-22-2022 10:50-0400 Respiratory rate 16 /min Jose Najera MD Work Phone: [facility] 10-22-2022 10:50-0400 SaO2% (BldA) [Mass fraction] 98 % Jose Najera MD Work Phone: [facility] 10-22-2022 10:50-0400 Systolic blood pressure 132 mm[Hg] Jose Najera MD Work Phone: [facility] 09-24-2022 10:22-0400 Body height 170.2 cm Ma Sand Work Phone: [facility] 09-24-2022 10:22-0400 Body temperature 97 [degF] Ma Sand Work Phone: [facility] 09-24-2022 10:22-0400 Body weight 120.2 kg Ma Sand Work Phone: [facility] 09-24-2022 10:22-0400 Diastolic blood pressure 81 mm[Hg] Ma Sand Work Phone: [facility] 09-24-2022 10:22-0400 Heart rate 77 /min Ma Sand Work Phone: [facility] 09-24-2022 10:22-0400 Respiratory rate 16 /min Ma Sand Work Phone: [facility] 09-24-2022 10:22-0400 SaO2% (BldA) [Mass fraction] 97 % Ma Sand Work Phone: [facility] 09-24-2022 10:22-0400 Systolic blood pressure 116 mm[Hg] Ma Sand Work Phone: [facility] 09-07-2022 14:03-0400 Body weight 120.2 kg Christie Phan MD Work Phone: [facility] 08-27-2022 09:45-0400 Body height 170.2 cm Wilmer Driver APRN.GEAR KEEPER Work Phone: [facility] 08-27-2022 09:45-0400 Body temperature 97.7 [degF] Wilmer Driver APRN.GEAR KEEPER Work Phone: [facility] 08-27-2022 09:45-0400 Body weight 118.66 kg Wilmer Driver LEGAL BILLING COORDINATOR.GEAR KEEPER Work Phone: [facility] 08-27-2022 09:45-0400 Diastolic blood pressure 55 mm[Hg] Wilmer Driver LEGAL BILLING COORDINATOR.GEAR KEEPER Work Phone: [facility] 08-27-2022 09:45-0400 Heart rate 63 /min Wilmer Driver LEGAL BILLING COORDINATOR.GEAR KEEPER Work Phone: [facility] 08-27-2022 09:45-0400 Respiratory rate 16 /min Wilmer Driver LEGAL BILLING COORDINATOR.GEAR KEEPER Work Phone: [facility] 08-27-2022 09:45-0400 SaO2% (BldA) [Mass fraction] 96 % Wilmer Driver LEGAL BILLING COORDINATOR.GEAR KEEPER Work Phone: [facility] 08-27-2022 09:45-0400 Systolic blood pressure 117 mm[Hg] Wlimer Driver LEGAL BILLING COORDINATOR.GEAR KEEPER Work Phone: [facility] 05-20-2022 13:28-0500 Body height 170.2 cm Jose Najera MD Work Phone: [facility] 05-20-2022 13:28-0500 Body temperature 97.7 [degF] Jose Najera MD Work Phone: [facility] 05-20-2022 13:28-0500 Diastolic blood pressure 70 mm[Hg] Jose Najera MD Work Phone: [facility] 05-20-2022 13:28-0500 Heart rate 93 /min Jose Najera MD Work Phone: [facility] 05-20-2022 13:28-0500 Respiratory rate 16 /min Jose Najera MD Work Phone: [facility] 05-20-2022 13:28-0500 SaO2% (BldA) [Mass fraction] 97 % Jose Najera MD Work Phone: [facility] 05-20-2022 13:28-0500 Systolic blood pressure 127 mm[Hg] Jose Najera MD Work Phone: [facility] 03-18-2022 10:49-0400 Body height 170.2 cm Jose Najera MD Work Phone: [facility] 03-18-2022 10:49-0400 Body temperature 97.81 [degF] Jose Najera MD Work Phone: [facility] 03-18-2022 10:49-0400 Body weight 113.4 kg Jose Najera MD Work Phone: [facility] 03-18-2022 10:49-0400 Diastolic blood pressure 49 mm[Hg] Jose Najera MD Work Phone: [facility] 03-18-2022 10:49-0400 Heart rate 86 /min Jose Najera MD Work Phone: [facility] 03-18-2022 10:49-0400 Respiratory rate 16 /min Jose Najera MD Work Phone: [facility] 03-18-2022 10:49-0400 SaO2% (BldA) [Mass fraction] 98 % Jose Najera MD Work Phone: [facility] 03-18-2022 10:49-0400 Systolic blood pressure 145 mm[Hg] Jose Najera MD Work Phone: [facility] 03-09-2022 11:41-0400 Body height 170.2 cm Christie Phan MD Work Phone: [facility] 03-09-2022 11:41-0400 Body weight 112.49 kg Christie Phan MD Work Phone: [facility] 03-09-2022 11:41-0400 Diastolic blood pressure 100 mm[Hg] Christie Phan MD Work Phone: [facility] 03-09-2022 11:41-0400 Systolic blood pressure 158 mm[Hg] Christie Phan MD Work Phone: [facility] 03-04-2022 10:39-0400 Body height 170.2 cm Jose Najera MD Work Phone: [facility] 03-04-2022 10:39-0400 Body temperature 97.5 [degF] Jose Najera MD Work Phone: [facility] 03-04-2022 10:39-0400 Body weight 112.76 kg Jose Najera MD Work Phone: [facility] 03-04-2022 10:39-0400 Diastolic blood pressure 48 mm[Hg] Jose Najera MD Work Phone: [facility] 03-04-2022 10:39-0400 Heart rate 79 /min Jose Najera MD Work Phone: [facility] 03-04-2022 10:39-0400 Respiratory rate 16 /min Jose Najera MD Work Phone: [facility] 03-04-2022 10:39-0400 SaO2% (BldA) [Mass fraction] 99 % Jose Najera MD Work Phone: [facility] 03-04-2022 10:39-0400 Systolic blood pressure 132 mm[Hg] Jose Najera MD Work Phone: [facility] 11-26-2021 16:00-0400 Body height 168.91 cm Mirela Kelsey Other [employer] Other 11-26-2021 16:00-0400 Body mass index (BMI) [Ratio] 37.68 kg/m2 Mirela Kelsey Other [employer] Other 11-26-2021 16:00-0400 Body temperature 98.4 [degF] Mirela Kelsey Other [employer] Other 11-26-2021 16:00-0400 Body weight 107.5 kg Mirela Kelsey Other [employer] Other 11-26-2021 16:00-0400 Diastolic blood pressure 61 mm[Hg] Mirela Kelsey Other [employer] Other 11-26-2021 16:00-0400 Systolic blood pressure 115 mm[Hg] Mirela Kelsey Other [employer] Other 10-24-2021 08:18-0400 Body weight 108.86 kg Lynne Ni MD Work Phone: [facility] 10-24-2021 08:18-0400 Diastolic blood pressure 42 mm[Hg] Lynne Ni MD Work Phone: [facility] 10-24-2021 08:18-0400 Heart rate 72 /min Lynne Ni MD Work Phone: [facility] 10-24-2021 08:18-0400 Systolic blood pressure 106 mm[Hg] Lynne Ni MD Work Phone: [facility] 10-15-2021 15:45-0400 Body height 168.91 cm Mirela Kelsey Other [employer] Other 10-15-2021 15:45-0400 Body mass index (BMI) [Ratio] 38.31 kg/m2 Mirela Kelsey Other [employer] Other 10-15-2021 15:45-0400 Body temperature 98.1 [degF] Mirela Kelsey Other [employer] Other 10-15-2021 15:45-0400 Body weight 109.32 kg Mirela Kelsey Other [employer] Other 10-15-2021 15:45-0400 Diastolic blood pressure 60 mm[Hg] Mirela Kelsey Other [employer] Other 10-15-2021 15:45-0400 Systolic blood pressure 114 mm[Hg] Mirela Kelsey Other [employer] Other 09-11-2021 15:15-0400 Body height 168.91 cm Mirela Kelsey Other [employer] Other 09-11-2021 15:15-0400 Body mass index (BMI) [Ratio] 37.99 kg/m2 Mirela Kelsey Other [employer] Other 09-11-2021 15:15-0400 Body temperature 97.9 [degF] Mirela Laure Other [employer] Other 09-11-2021 15:15-0400 Body weight 108.41 kg Mirela Kelsey Other [employer] Other 09-11-2021 15:15-0400 Diastolic blood pressure 83 mm[Hg] Mirela Kelsey Other [employer] Other 09-11-2021 15:15-0400 Systolic blood pressure 144 mm[Hg] Mirela Kelsey Other [employer] Other 10-07-2020 12:45-0400 Diastolic blood pressure 78 mm[Hg] [facility] Phone: 10-07-2020 12:45-0400 Heart rate 68 /min [facility] Phone: 10-07-2020 12:45-0400 SaO2% (BldA) [Mass fraction] 99 % [facility] Phone: 10-07-2020 12:45-0400 Systolic blood pressure 112 mm[Hg] [facility] Phone: 10-07-2020 10:45-0400 Respiratory rate 22 /min [facility] Phone: 10-07-2020 09:01-0400 Body height 170.2 cm [facility] Phone: 10-07-2020 09:01-0400 Body mass index (BMI) [Ratio] 36.65 kg/m2 [facility] Phone: 10-07-2020 09:01-0400 Body temperature 97.81 [degF] [facility] Phone: 10-07-2020 09:01-0400 Body weight 106.14 kg [facility] Phone: Encounters Encounter Date Encounter Type Care Provider Facility Start: 04-11-2024 End: 04-11-2024 Specialty Pharmacy Aidee Quintanilla [facility] Comment on above: SPP Inflammatory Con ditions - Medication Refill (Benlysta) Start: 04-10-2024 End: 04-10-2024 Telephone encounter Jose Najera MD Work Phone: [facility] Comment on above: Appointment Start: 04-10-2024 End: 04-10-2024 ambulatory GORDO BARFIELD Not Available Start: 04-07-2024 End: 04-07-2024 Social Work Deisy L[facility]W Hematology/Oncology Start: 04-06-2024 End: 04-06-2024 Office outpatient new 30 minutes Judy Arciniega MD Work Phone: [facility] Comment on above: Systemic lupus eryth ematosus (CMS-HCC) (Primary Dx); Cold extremities; Pain of lower extremity, unspecified laterality; Rheumatoid arthritis, involving unspecified site, unspecified whether rheumatoid factor present (CMS-HCC); Current smoker; 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 Start: 04-03-2024 End: 04-03-2024 Refill Judah Mike DO Work Phone: [facility] Comment on above: Oral thrush (Primary Dx) Start: 04-02-2024 End: 04-03-2024 Telephone encounter Lynne Ni MD Work Phone: Rheumatology Comment on above: Results Start: 04-02-2024 End: 04-02-2024 Office outpatient visit 25 minutes Judah Mike DO Work Phone: [facility] Comment on above: Oral thrush (Primary Dx) Start: 04-02-2024 End: 04-02-2024 ambulatory JUDAH MIKE Not Available Start: 03-31-2024 End: 04-11-2024 Chart abstracting [facility] Main Work Phone: Neurology Comment on above: CMN Start: 03-30-2024 End: 03-30-2024 ambulatory Maico Douglas MD Work Phone: [facility] Start: 03-27-2024 End: 03-28-2024 ambulatory Jose Najera MD Work Phone: Hematology/Oncology Comment on above: 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); High total serum IgM; JOSE RAFAEL (obstructive sleep apnea); Elevated sed rate; Hypogammaglobulinemia (HCC); Frequent infections Start: 03-27-2024 End: 03-28-2024 Telemedicine consultation with patient Jose Najera MD Work Phone: Hematology/Oncology Start: 03-27-2024 End: 03-28-2024 ambulatory MADELAINE FERRIS Facility:[facility] Start: 03-23-2024 End: 03-23-2024 ambulatory OLY PLASCENCIA Not Available Start: 03-23-2024 End: 03-23-2024 Office outpatient visit 15 minutes Oly WARREN Work Phone: [facility] Comment on above: Abnormal uterine ble eding (AUB); Menorrhagia with regular cycle Start: 03-23-2024 End: 03-23-2024 Bamboo flowsheet Oly WARREN Work Phone: [facility] Start: 03-23-2024 End: 03-23-2024 Bamboo flowsheet Oly WARREN Work Phone: [facility] Start: 03-23-2024 End: 03-23-2024 Nursing evaluation of patient and report Ma Nurse Dre Marshall Work Phone: Hematology/Oncology Comment on above: Elevated sed rate (P rimary Dx); Megaloblastic anemia due to vitamin B12 deficiency Start: 03-23-2024 End: 03-23-2024 ambulatory MADELAINE Suarez Cristina Facility:[facility] Start: 03-20-2024 End: 03-30-2024 Telephone encounter Akiko Cooper MD Work Phone: [facility] Start: 03-18-2024 End: 03-18-2024 ambulatory LYNNE NI Facility:[facility] Start: 03-18-2024 End: 03-18-2024 Patient encounter procedure Lynne Ni MD Work Phone: Rheumatology Comment on above: Other systemic lupus erythematosus with other organ involvement (HCC) (Primary Dx); Fibromyalgia; CHRISTIAN positive; EDS (Peter-Danlos syndrome); Elevated sed rate; Vitamin D deficiency; Secondary osteoarthritis of multiple sites; Chronic bilateral low back pain with bilateral sciatica; Chronic pain of toes of both feet; Long-term use of high-risk medication; MCFP 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; Bilateral hand pain; Systemic lupus erythematosus, unspecified SLE type, unspecified organ involvement status (HCC); Vitamin B12 deficiency; Discoid lupus erythematosus Start: 03-18-2024 End: 03-18-2024 Telemedicine consultation with patient Lynne Ni MD Work Phone: Rheumatology Start: 03-17-2024 End: 03-17-2024 Refill Lynne Ni MD Work Phone: Rheumatology Comment on above: Refill Request Start: 03-16-2024 End: 03-16-2024 Bamboo flowsheet Luan Skip DO Work Phone: [facility] Start: 03-16-2024 End: 03-16-2024 Bamboo flowsheet Luan Skip DO Work Phone: [facility] Start: 03-16-2024 End: 03-16-2024 Office outpatient visit 15 minutes Luan Skip DO Work Phone: [facility] Comment on above: Nipple discharge Start: 03-16-2024 End: 03-16-2024 ambulatory LUAN SKIP Not Available Start: 03-16-2024 End: 03-16-2024 ambulatory POST TRONIC MACHINE OPERATOR-C Gay Enciso Work Phone: [facility] Work Phone: Start: 03-16-2024 End: 03-16-2024 Patient encounter procedure POST TRONIC MACHINE OPERATOR-C Gay Enciso Work Phone: [facility] Gastroenterology Work Phone: Start: 03-13-2024 End: 03-13-2024 Specialty Pharmacy Aidee Quintanilla [facility] Comment on above: SPP Inflammatory Con ditions - Medication Refill (Benlysta - NCA 09/2024) Start: 03-08-2024 End: 03-08-2024 ambulatory EHAB [facility] Start: 03-07-2024 End: 03-08-2024 Chart abstracting [facility] Main Work Phone: Neurology Comment on above: cmn Start: 03-02-2024 End: 03-02-2024 Refill Zita Rogers POST TRONIC MACHINE OPERATOR Work Phone: [facility] Comment on above: Lumbosacral radiculo tray at L5; Degenerative disc disease, lumbar; Cervical radiculopathy at C5 Start: 02-28-2024 End: 02-28-2024 ambulatory POST TRONIC MACHINE OPERATOR-C Gay Enciso Work Phone: [facility] Work Phone: Start: 02-28-2024 End: 02-28-2024 Patient encounter procedure POST TRONIC MACHINE OPERATOR-C Gay Enciso Work Phone: [facility] Work Phone: Start: 02-22-2024 End: 02-22-2024 Telephone encounter Oly Elam TAMMIE Work Phone: [facility] Comment on above: 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 - 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 (Eds scheduling) Start: 02-21-2024 End: 02-21-2024 Nursing evaluation of patient and report Ma Nurse Dre Marshall Work Phone: Hematology/Oncology Comment on above: Elevated sed rate (P rimary Dx); Megaloblastic anemia due to vitamin B12 deficiency Start: 02-21-2024 End: 02-21-2024 ambulatory MADELAINE FERRIS Facility:[facility] Start: 02-18-2024 End: 02-18-2024 Telephone encounter Lynne Ni MD Work Phone: Rheumatology Start: 02-16-2024 Non-patient / Non-visit POST TRONIC MACHINE OPERATOR-C Abiola Enciso Work Phone: [facility] Work Phone: Start: 02-16-2024 End: 02-16-2024 Admission to same day surgery center POST TRONIC MACHINE OPERATOR-C Gay Enciso Work Phone: [facility] Work Phone: Start: 02-16-2024 End: 02-16-2024 ambulatory POST TRONIC MACHINE OPERATOR-C Gay Enciso Work Phone: [facility] Work Phone: Start: 02-15-2024 End: 02-15-2024 Telephone encounter Timmy Heck APRN.GEAR KEEPER Work Phone: Neurology Comment on above: Orders (PAP RX.) Start: 02-14-2024 End: 02-14-2024 Follow-up encounter Aidee Quintanilla [facility] Comment on above: SPP Inflammatory Con ditions - Follow-up (Benlysta); Insurance Authorization ([place] Renew[place] Submitted) Start: 02-14-2024 End: 02-14-2024 ambulatory iTmmy Heck APRN.GEAR KEEPER Work Phone: Neurology Comment on above: JOSE RAFAEL (obstructive sle ep apnea) (Primary Dx); Somnolence, daytime SPP Inflammatory Con ditions - Medication Refill (Benlysta - NCA 09/2024) Start: 02-14-2024 End: 02-14-2024 Telemedicine consultation with patient Timmy Heck APRN.GEAR KEEPER Work Phone: Neurology Start: 02-09-2024 End: 02-09-2024 ambulatory ZITA ROGERS Not Available Start: 01-28-2024 End: 01-31-2024 ambulatory Alhaji Head DO Work Phone: [facility] Work Phone: Comment on above: Blood work Start: 01-28-2024 End: 01-28-2024 Patient encounter procedure [facility] [place] Work Phone: Start: 01-27-2024 End: 01-27-2024 Telemedicine consultation with patient Alhaji Head DO Work Phone: Infectious Disease Start: 01-27-2024 End: 01-27-2024 ambulatory Alhaji Head DO Work Phone: Infectious Disease Comment on above: Pseudomonas infectio n (Primary Dx); Other systemic lupus erythematosus with other organ involvement (HCC); On prednisone therapy; Long-term use of Plaquenil Start: 01-25-2024 End: 01-25-2024 Nursing evaluation of patient and report Cele Nurse Dre Marshall Work Phone: Hematology/Oncology Comment on above: Elevated sed rate (P rimary Dx); Megaloblastic anemia due to vitamin B12 deficiency Start: 01-25-2024 End: 01-25-2024 ambulatory MADELAINE FERRIS Facility:[facility] Start: 01-18-2024 End: 01-19-2024 Specialty Pharmacy Aidee Quintanilla [facility] Comment [...] 12-27-2023 Nursing evaluation of patient and report Ma [...] syndrome Start: 12-27-2023 End: 12-27-2023 ambulatory MADELAINE Suarez Cristina Facility:[facility] Start: 12-24-2023 End: 12-24-2023 ambulatory [facility] Ambulatory Start: 12-21-2023 End: 12-21-2023 ambulatory ZITA ROGERS Not Available Start: 12-16-2023 End: 12-16-2023 ambulatory [facility] Work Phone: Start: 12-16-2023 End: 12-16-2023 Patient encounter procedure [facility] Work Phone: Start: 12-15-2023 End: 12-15-2023 ambulatory ZITA ROGERS Not Available Start: 12-13-2023 Specialty Pharmacy [facility] Comment on above: SPP Inflammatory Con ditions - Medication Refill (Benlysta - NCA 09/2024) Start: 12-04-2023 End: 12-04-2023 ambulatory DIGNA ROLDANCHASE Not Available Start: 11-29-2023 End: 11-29-2023 [facility] Start: 11-29-2023 End: 11-29-2023 Nursing evaluation of patient and report Cele Marshall Work Phone: Hematology/Oncology Comment on above: Elevated sed rate (P rimary Dx); Megaloblastic anemia due to vitamin B12 deficiency Start: 11-25-2023 ambulatory Jose nelson MD Work Phone: Hematology/Oncology Comment on above: Folic acid Start: 11-24-2023 End: 11-24-2023 ambulatory [facility] Facility:[facility] Start: 11-15-2023 End: 11-15-2023 Specialty Pharmacy Aidee Quintanilla [facility] Comment on above: SPP Inflammatory Con ditions - Medication Refill (Benlysta - NCA 09/2024) Start: 11-11-2023 Refill Lynne Ni MD Work Phone: Rheumatology Comment on above: Refill Request Start: 11-08-2023 End: 11-08-2023 ambulatory ZITA ROGERS Not Available Start: 11-04-2023 End: 11-04-2023 ambulatory [facility] Work Phone: Start: 11-04-2023 End: 11-04-2023 Patient encounter procedure [facility] Infectious Disease Work Phone: Start: 10-27-2023 End: 10-27-2023 Nursing evaluation of patient and report Cele Marshall Work Phone: Hematology/Oncology Comment on above: Elevated sed rate (P rimary Dx); Megaloblastic anemia due to vitamin B12 deficiency Start: 10-27-2023 End: 10-28-2023 ambulatory Lynne Ni MD Work Phone: Rheumatology Start: 10-27-2023 Patient encounter procedure Lynne Ni MD Work Phone: Rheumatology Comment on above: Cdiff Start: 10-21-2023 End: 10-21-2023 ambulatory ZITA ROGERS Not Available Start: 10-20-2023 End: 10-20-2023 ambulatory [facility] Work Phone: Start: 10-20-2023 End: 10-20-2023 Patient encounter procedure [facility] Work Phone: Start: 10-12-2023 Specialty Pharmacy [facility] Comment on above: SPP Inflammatory Con ditions - Medication Refill (Benlysta) Start: 10-05-2023 End: 10-05-2023 ambulatory [facility] Facility:[facility] Start: 10-05-2023 End: 10-05-2023 Patient encounter [...] of Plaquenil; Long-term use of high-risk medication; 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; Raynaud's disease [...] B12 deficiency Start: 09-30-2023 End: 09-30-2023 ambulatory [facility] Facility:[facility] Start: 09-22-2023 End: 09-22-2023 Patient encounter procedure [facility] Gastroenterology Work Phone: Start: 09-13-2023 End: 09-13-2023 Specialty Pharmacy [facility] Comment on above: SPP [...] with patient Jose Najera MD Work Phone: [facility] Start: 09-04-2023 Telephone encounter Lynne shaw MD Work Phone: Rheumatology Comment on above: Results Start: 08-31-2023 End: 08-31-2023 Nursing evaluation of patient and report Cele Marshall Work Phone: Hematology/Oncology Comment on above: 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); Elevated sed rate Start: 08-31-2023 End: 08-31-2023 ambulatory [facility] Facility:[facility] Start: 08-12-2023 Specialty Pharmacy Aidee Quintanilla [facility] Comment on above: SPP Inflammatory Con ditions - Medication Refill (Benlysta ) Start: 08-10-2023 End: 08-10-2023 ambulatory GORDO HOLLIDAYMIS Not Available Start: 08-05-2023 End: 08-05-2023 ambulatory [facility] Facility:[facility] Start: 08-05-2023 End: 08-05-2023 Nursing evaluation of patient and report Cele Marshall Work Phone: Hematology/Oncology Comment on above: 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); Elevated sed rate Start: 07-28-2023 Non-patient / Non-visit [facility] Gastroenterology Work Phone: Start: 07-15-2023 End: 07-15-2023 ambulatory BERNABE ENGLISH Not Available Start: 07-13-2023 End: 07-13-2023 ambulatory Aidee Quintanilla [facility] Start: 07-13-2023 End: 07-13-2023 Nursing evaluation of patient and report Ma Nurse Dre Marshall Work Phone: Hematology/Oncology Comment on above: 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); Elevated sed rate SPP Inflammatory Con ditions - Medication Refill (Benlysta ) Start: 07-13-2023 End: 07-13-2023 Office outpatient new 45 minutes Lois Holm MD Work Phone: [facility] Comment on above: Shortness of breath (Primary Dx); Paroxysmal supraventricular tachycardia; PAC (premature atrial contraction); Current smoker; Systemic lupus erythematosus, unspecified SLE type, unspecified organ involvement status (CMS/HCC); Palpitations; Obstructive sleep apnea syndrome; Morbid obesity (CMS/HCC); Bilateral lower extremity edema Start: 07-06-2023 End: 07-06-2023 Office outpatient visit 25 minutes Juan Luis Richardson MD Work Phone: [facility] Comment on above: Autoimmune disease ( CMS/HCC) (Primary Dx); Autonomic dysfunction; Lumbosacral radiculopathy; Bilateral leg weakness Start: 07-06-2023 End: 07-06-2023 ambulatory JUAN LUIS RICHARDSON Not Available Start: 07-05-2023 Chart abstracting Juan Luis ramirez MD Work Phone: [facility] Start: 06-10-2023 End: 06-10-2023 ambulatory MADELAINE FERRIS Facility:[facility] Start: 06-09-2023 End: 06-09-2023 Office outpatient new 60 minutes Michelle Britton APRN-GEAR KEEPER Work Phone: [facility] Comment on above: Irregular heart rate (Primary Dx); Essential hypertension; Autonomic dysfunction; Obstructive sleep apnea syndrome; Primary hypertension Start: 06-09-2023 End: 06-09-2023 ambulatory [facility] Ambulatory Start: 06-03-2023 End: 06-03-2023 ambulatory MADELAINE FERRIS Facility:[facility] Start: 06-01-2023 End: 06-01-2023 ambulatory MADELAINE FERRIS Facility:[facility] Start: 06-01-2023 End: 06-01-2023 ambulatory ZITA Lynne KEN Not Available Start: 05-26-2023 End: 05-26-2023 Office outpatient visit 40 minutes Christie Phan MD Work Phone: [facility] Comment on above: Obesity, Class III, BMI >= 40 (Primary Dx); Other chronic pain Start: 05-26-2023 End: 05-26-2023 ambulatory CHRISTIE PHAN Facility:[facility] Start: 05-10-2023 End: 05-10-2023 ambulatory ZITA ROGERS Not Available Start: 05-06-2023 End: 05-06-2023 ambulatory ZITA ROGERS Not Available Start: 04-26-2023 End: 04-26-2023 [...] above: Results Start: 04-21-2023 End: 04-21-2023 ambulatory ZITA Lynne ROGERS Not Available Start: 04-16-2023 End: 04-16-2023 Nursing evaluation of patient and report Ma Nurse Dre Marshall Work Phone: Hematology/Oncology Comment on above: 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); Elevated sed rate Start: 04-16-2023 End: 04-16-2023 ambulatory MADELAINE FERRIS Facility:[facility] Start: 03-19-2023 End: 03-19-2023 Nursing evaluation of patient and report Cele Butcher Dre Joanna Work Phone: Hematology/Oncology Comment on above: 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); Elevated sed rate Start: 03-16-2023 [facility] Work Phone: Neurology Comment on above: CMN Start: 03-11-2023 End: 03-11-2023 Nursing evaluation of patient and report Nurse [facility] Nickie Work Phone: Rheumatology Comment on above: Systemic lupus eryth ematosus, unspecified SLE type, unspecified organ involvement status (HCC) (Primary Dx) Start: 03-01-2023 Telephone encounter Lynne shaw MD Work Phone: Rheumatology Comment on above: Results (Eye Exam) Start: 02-19-2023 End: 02-19-2023 Nursing evaluation of patient and report Cele Erickson Joanna Work Phone: Hematology/Oncology Comment on [...] deficiency; Elevated sed rate; Bilateral wrist pain; 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; Steroid-induced osteoporosis; 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 Start: 02-04-2023 Patient encounter procedure Clinton Schroeder (Pharmacist) [facility] Comment on above: SPP Inflammatory Con ditions - Treatment Referral (Benlysta); Insurance Authorization (PA submission pending) Start: 02-04-2023 Telephone encounter Lynne shaw MD Work Phone: Rheumatology Comment on above: Appointment; Orders; Medication Authorization Start: 02-04-2023 End: 02-04-2023 Telemedicine consultation with patient Lynne Ni MD Work Phone: [facility] Start: 01-28-2023 Refill Christie Hays Work Phone: [...] with patient Misty Nelson MD Work Phone: [facility] Start: 12-24-2022 Refill Christie Hays Work Phone: Integrated Medicine Comment on above: Refill Request Start: 12-18-2022 Telephone encounter Lidia Argueta RN Work Phone: Hematology/Oncology Comment on above: Care Coordination (a ppointment) Start: 12-17-2022 End: 12-18-2022 ambulatory Wilmer Driver LEGAL BILLING COORDINATOR.GEAR KEEPER Work Phone: Hematology/Oncology Comment on above: 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); Chronic fatigue and malaise Start: 12-17-2022 End: 12-18-2022 Telemedicine consultation with patient Wilmer Driver APRN.GEAR KEEPER Work Phone: [place] Start: 12-16-2022 Telephone encounter [...] apnea syndrome Start: 09-24-2022 End: 09-25-2022 ambulatory OLY PLASCENCIA . Facility:[facility] Start: 09-24-2022 End: 09-24-2022 Nursing evaluation of patient and report Cele Marshall Work Phone: Hematology/Oncology Comment on above: 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); Elevated sed rate Start: 09-10-2022 End: 09-10-[address] MADELAINE FERRIS . Facility:[facility] Start: 09-08-2022 Telephone encounter Angelia king [facility] Delivery - Compliance Comment on [...] Start: 08-27-2022 End: 08-27-2022 ambulatory Wilmer Driver APRN.GEAR KEEPER Work Phone: Hematology/Oncology Comment on above: 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); Elevated sed rate; High total serum IgM; Chronic fatigue and malaise; JOSE RAFAEL (obstructive sleep apnea) Start: 08-27-2022 End: 08-27-2022 Patient encounter procedure Wilmer Driver APRN.GEAR KEEPER Work Phone: [place] Start: 08-19-2022 Telephone encounter Lynne shaw MD Work Phone: Rheumatology Comment on above: Results Start: 08-15-2022 ambulatory Lynne Ni MD Work Phone: Rheumatology Comment on above: update Start: 08-10-2022 Refill Christie Hays Work Phone: [facility] Comment on above: Refill Request Start: 07-27-2022 End: 07-27-2022 ambulatory Timmy Heck APRN.GEAR KEEPER Work Phone: Neurology Comment on above: JOSE RAFAEL (obstructive sle ep apnea) (Primary Dx) Start: 07-27-2022 End: 07-27-2022 Telemedicine consultation with patient Timmy Heck APRN.GEAR KEEPER Work Phone: [facility] Start: 07-24-2022 ambulatory Lynne Ni MD Work Phone: Rheumatology Comment on above: Blood work Start: 07-24-2022 Telephone encounter Jose hooker MD Work Phone: Hematology/Oncology Comment on above: Orders (Lab Orders E xpire Before Appointment) Start: 07-21-2022 ambulatory Lawanda Miranda MD Work Phone: [facility] Start: 07-21-2022 Patient encounter procedure Lawanda Miranda MD Work Phone: Neurology Comment on above: Appointment Start: 05-20-2022 End: 05-20-2022 Nursing evaluation of patient and report Cele Marshall Work Phone: Hematology/Oncology Comment on above: 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); Elevated sed rate Start: 05-20-2022 End: 05-20-2022 ambulatory Jose Najera MD Work Phone: Hematology/Oncology Comment on above: High total serum IgM (Primary Dx); Elevated sed rate; Somnolence, daytime; JOSE RAFAEL (obstructive sleep apnea) Start: 05-20-2022 End: 05-20-2022 Patient encounter procedure oJse Najera MD Work Phone: [place] Start: 05-05-2022 ambulatory Lawanda Miranda MD Work Phone: Neurology Comment on above: Cpap Start: 05-05-2022 Telephone encounter Jamidane Rivera PS [facility] Home Res[facility] Therapy Comment [...] Start: 03-31-2022 Refill Christie Hays Work Phone: [facility] Comment on above: [...] m caregiver Christie Phan MD Work Phone: [facility] Start: 03-18-2022 End: 03-18-2022 Patient encounter procedure Jose Najera MD Work Phone: [place] Start: 03-12-2022 End: 03-13-[address] MADELAINE FERRIS . Facility:[facility] Start: 03-10-2022 End: 03-10-2022 ambulatory Alhaji Head DO Work Phone: Infectious Disease Comment on above: results Raised level of immu noglobulins (Primary Dx); Wound healing, delayed; Current smoker Start: 03-10-2022 E-mail encounter hansa suarez caregiver Alhaji Head DO Work Phone: [facility] Start: 03-10-2022 End: 03-10-2022 Telemedicine consultation with patient Misty Nelson MD Work Phone: [facility] Start: 03-09-2022 End: 03-10-2022 ambulatory GAY ENCISO Facility: Start: 03-09-2022 End: 03-09-2022 Office consultation new/estab patient 80 min Christie Phan MD Work Phone: [facility] Comment on above: Obesity, Class II, B AK 35-39.9 (Primary Dx); Somnolence, daytime; Chronic fatigue [...] with patient Alhaji Head DO Work Phone: [facility] Start: 02-14-2022 End: 02-15-[address] MADELAINE FERRIS . Facility:[facility] Start: 11-26-2021 End: 11-26-2021 ambulatory Mirela Kelsey Other [employer] Other Start: 11-26-2021 Office outpatient vi sit 25 minutes Mirela Kelsey [facility] Infectious Disease Start: 11-17-2021 End: 11-18-2021 ambulatory [...] 10-15-2021 End: 10-15-2021 ambulatory Mirela Kelsey Other [employer] Other Start: 10-15-2021 Office outpatient vi sit 25 minutes Mirela Kelsey [facility] Infectious [facility] Start: 10-03-2021 End: [address] MIRELA KELSEY Facility:[facility] Start: 09-18-2021 End: 09-18-2021 ambulatory Mirela Kelsey Other [employer] Other Start: 09-18-2021 Telephone encounter Mirela Kelsey [facility] Infectious Disease Start: 09-11-2021 End: 09-11-2021 ambulatory Mirela Kelsey Other [employer] Other Start: 09-11-2021 Office outpatient ne w 45 minutes Mirela Kelsey [facility] Start: 10-07-2020 End: 10-08-[address] 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 Enciso Work Phone: Start: 07-13-2023 ECG 12-LEAD MICHELLE [place] Start: 07-13-2023 Ecg routine ecg w/le ast 12 lds w/i&r Lois Holm MD Work Phone: Start: 06-09-2023 ECG 12-LEAD MICHELLE [place] Start: 06-09-2023 Ecg routine ecg w/le ast 12 lds w/i&r Michelle Britton 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 Work Phone: Start: 09-10-2022 Microscopic observat ion [Identifier] in Cervix by Cyto stain Luan Skip DO Work Phone: Start: 09-10-2022 Cytp cerv/vag auto t hin layer prep mnl screen Luan Valdivia DO Work Phone: Start: 10-07-2020 End: 10-07-2020 Cardiac catheterization Jaren Black MD Work Phone: Start: 10-07-2020 Chloride [Moles/volu me] in Serum or Plasma Jaren Black MD Work Phone: Start: 10-07-2020 CREATININE W/GFR POI NT OF CARE Jaren Black MD Work Phone: Start: 10-07-2020 End: 10-07-2020 Gluc bld gluc mntr dev cleared fda spec home use Jaren Black MD Work Phone: Start: 10-07-2020 Potassium [Moles/vol ume] in Serum or Plasma Jaren Black MD Work Phone: Start: 10-07-2020 Sodium [Moles/volume ] in Serum or Plasma Jaren Black MD Work Phone: Start: 10-07-2020 Urine test visual color cmprsn meths Jaren Black MD Work Phone: Start: 09-14-2018 Radex foot complete minimum 3 views VICTOR MANUEL GUZMAN Plan of Treatment Date Care Activity Detail Author Start: 09-11-2027 Screening for malignant neoplasm of cervix [facility] Start: 09-10-2025 Screening for malignant neoplasm of cervix Pap Smear [facility] Start: 03-17-2025 Diabetes mellitus screening Diabetes Screening [facility] Start: 11-20-2024 Influenza vaccination Influenza Vaccine (#1) [facility] Comment on above: Postponed from 01/23/2024 (Patient Refus ed) Start: 09-19-2024 End: 09-19-2024 Patient encounter procedure [facility] Comment on above: hEDS with concerns and wants CTD evaluat ion Start: 08-22-2024 End: 08-22-2024 Patient encounter procedure 08/22/2024 1:30 PM EDT Office Visit [facility] [address] [place] [id number] Raj Kitchen MD [address] [place] [address] [facility] Start: 08-01-2024 End: 08-01-2024 Patient encounter procedure 08/01/2024 10:30 AM EDT Office Visit [facility] [address] [place] [address] Bernabe English MD [address] [place], [place] [id number] [facility] Start: 07-13-2024 End: 07-13-2024 Patient encounter procedure 07/13/2024 9:20 AM EST Office Visit [facility] [address] [place] [id number] Lois Holm MD [address] [facility] [place] [address] [facility] Start: 07-03-2024 End: 04-02-2025 25-hydroxyvitamin D3 [Mass/volume] in Serum or Plasma VITAMIN D 25 HYDROXY Lab Routine Vitamin D deficiency Expected: 07/03/2024 (Approximate), Expires: 04/02/2025 [facility] Comment on above: Expected: 07/03/2024 (Approximate), Expi res: 04/02/2025 Start: 07-03-2024 End: 04-02-2025 C reactive protein [Mass/volume] in Serum or Plasma C-REACTIVE PROTEIN Lab Routine Elevated sed rate Elevated C-reactive protein (CRP) Expected: 07/03/2024 (Approximate), Expires: 04/02/2025 [facility] Comment on above: Expected: 07/03/2024 (Approximate), Expi res: 04/02/2025 Start: 07-03-2024 End: 04-02-2025 CBC panel - Blood by Automated count COMPLETE BLOOD COUNT Lab Routine Anemia of chronic disease Expected: 07/03/2024 (Approximate), Expires: 04/02/2025 [facility] Comment on above: Expected: 07/03/2024 (Approximate), Expi res: 04/02/2025 Start: 07-03-2024 End: 04-02-2025 Comprehensive metabolic 2000 panel - Serum or Plasma COMPREHENSIVE METABOLIC PANEL Lab Routine Elevated LFTs Expected: 07/03/2024 (Approximate), Expires: 04/02/2025 [facility] Work Phone: Comment on above: Expected: 07/03/2024 (Approximate), Expi res: 04/02/2025 Start: 07-03-2024 End: 04-02-2025 Erythrocyte sedimentation rate SEDIMENTATION RATE, WESTERGREN Lab Routine Elevated sed rate Elevated C-reactive protein (CRP) Expected: 07/03/2024 (Approximate), Expires: 04/02/2025 [facility] Comment on above: Expected: 07/03/2024 (Approximate), Expi res: 04/02/2025 Start: 06-26-2024 End: 06-26-2024 Nursing evaluation of patient and report 06/26/2024 9:45 AM EST Nurse Visit Hematology/Oncology [address] [place] [address] Cele Marshall Nurse Dre [address] [place] [address] B12 Hematology/Oncology Comment on above: B12 Start: 06-26-2024 End: 06-26-2024 ambulatory Hematology/Oncology Comment on above: RTC 3 month IVIG for hypogammagl obulinemia Start: 06-26-2024 End: 06-26-2024 Patient encounter procedure 06/26/2024 8:45 AM EST Office Visit [facility] [address] [place] [address] labs [facility] Comment on above: labs Start: 06-06-2024 End: 06-06-2024 Patient encounter procedure 06/06/2024 11:00 AM EST Office Visit [facility] [address] [place] [address] Oly Plascencia PA [address] [place] [address] [place] [address] [facility] Start: 05-29-2024 End: 05-29-2024 Nursing evaluation of patient and report 05/29/2024 9:30 AM EST Nurse Visit Hematology/Oncology [address] [place] [address] Cele Marshall Nurse Dre [address] [place] [address] [facility]12 Hematology/Oncology Comment on above: B12 Start: 05-19-2024 End: 05-19-2024 ambulatory 05/19/2024 9:30 AM EST Infusion Center Hematology/Oncology [address] [place] [address] IVIG for hypogammaglobulinemia Hematology/Oncology Comment on above: IVIG for hypogammaglobulinemia Start: 04-24-2024 End: 04-24-2024 Nursing evaluation of patient and report 04/24/2024 9:30 AM EST Nurse Visit Hematology/Oncology [address] [place] [address] Cele Marshall Nurse Dre [address] [place] [address] B12 Hematology/Oncology Comment on above: B12 Start: 04-18-2024 End: 04-18-2024 Nursing evaluation of patient and report [facility] Comment on above: refer Sibo Start: 04-14-2024 End: 04-14-2024 ambulatory Hematology/Oncology Comment on above: IVIG for hypogammaglobulinemia REFILL- Benlysta- PA x 02/11/25- Start: 04-11-2024 End: 04-11-2024 Specialty Pharmacy [facility] Comment on above: REFILL- Benlysta- PAx 02/11/25- NCA REFILL- Benlysta- PA x 02/11/25- Start: 04-06-2024 End: 2025 US.doppler Extremity arteries - bilateral for physiologic artery study Vas art doppler lwr bilat mult lev/PVR Vascular Ultrasound Routine Cold extremities Pain of lower extremity, unspecified laterality Systemic lupus erythematosus (CMS-HCC) Expected: 04/06/2024, Expires: 2025 [facility] Work Phone: Comment on above: Expected: 04/06/2024, Expires: Start: 03-28-2024 End: 03-28-2024 ambulatory 03/28/2024 1:00 PM [facility] Hematology/Oncology [address] [place] [address] Jose Najera MD [address] [place] [address] 13 wk virtual after labs last week Hematology/Oncology Comment on above: 13 wk virtual after labs last week Start: 03-23-2024 End: 03-23-2025 aPTT in Blood by Coagulation assay APTT Lab Routine Menorrhagia with regular cycle Expected: 03/23/2024 (Approximate), Expires: 03/23/[address] [facility] Comment on above: Expected: 03/23/2024 (Approximate), Expi res: 03/23/2025 Start: 03-23-2024 End: 03-23-2025 US for US PELVIS-TRANSVAG IF INDICATED Imaging Routine Menorrhagia with regular cycle Expected: 03/23/2024 (Approximate), Expires: 03/23/[address] [facility] Comment on above: Expected: 03/23/2024 (Approximate), Expi res: 03/23/2025 Start: 03-21-2024 End: 03-21-2024 Nursing evaluation of patient and report 03/21/2024 11:45 AM EDT Nurse Visit Hematology/Oncology [address] [place] [address] Cele Marshall Nurse Dre [address] [place] [address] b12 Hematology/Oncology Comment on above: b12 Start: 03-21-2024 End: 03-21-2024 Patient encounter procedure 03/21/2024 11:15 AM EDT Office Visit [facility] [address] [place] [address] LAb [facility] Comment on above: LAb Start: 03-20-2024 End: 12-29-2024 25-hydroxyvitamin D3 [Mass/volume] in Serum or Plasma VITAMIN D 25 HYDROXY Lab Routine Vitamin D deficiency Expected: 03/20/2024 (Approximate), Expires: 12/29/2024 [facility] Comment on above: Expected: 03/20/2024 (Approximate), Expi res: 12/29/2024 Start: 03-20-2024 End: 12-29-2024 BLOOD TB SCREEN BLOOD TB SCREEN Lab Routine Screening-pulmonary TB Expected: 03/20/2024 (Approximate), Expires: 12/29/2024 [facility] Comment on above: Expected: 03/20/2024 (Approximate), Expi res: 12/29/2024 Start: 03-20-2024 End: 12-29-2024 C reactive protein [Mass/volume] in Serum or Plasma C-REACTIVE PROTEIN Lab Routine Elevated C-reactive protein (CRP) Elevated sed rate Expected: 03/20/2024 (Approximate), Expires: 12/29/2024 [facility] Comment on above: Expected: 03/20/2024 (Approximate), Expi res: 12/29/2024 Start: 03-20-2024 End: 06-19-2024 CBC W Auto Differential panel - Blood COMPLETE BLOOD COUNT AND DIFFERENTIAL Lab Routine Megaloblastic anemia due to vitamin B12 deficiency Elevated sed rate Obstructive sleep apnea syndrome Expected: 03/20/2024 (Approximate), Expires: 06/19/2024 [facility] Comment on above: Expected: 03/20/2024 (Approximate), Expi res: 06/19/2024 Start: 03-20-2024 End: 06-19-2024 Cobalamin (Vitamin B12) [Mass/volume] in Serum or Plasma VITAMIN B12 Lab Routine Megaloblastic anemia due to vitamin B12 deficiency Elevated sed rate Obstructive sleep apnea syndrome Expected: 03/20/2024 (Approximate), Expires: 06/19/2024 [facility] Comment on above: Expected: 03/20/2024 (Approximate), Expi res: 06/19/2024 Start: 03-20-2024 End: 06-19-2024 Comprehensive metabolic 2000 panel - Serum or Plasma COMPREHENSIVE METABOLIC PANEL Lab Routine Megaloblastic anemia due to vitamin B12 deficiency Elevated sed rate Obstructive sleep apnea syndrome Expected: 03/20/2024 (Approximate), Expires: 06/19/2024 [facility] Work Phone: Comment on above: Expected: 03/20/2024 (Approximate), Expi res: 06/19/2024 Start: 03-20-2024 End: 12-29-2024 Erythrocyte sedimentation rate SEDIMENTATION RATE, WESTERGREN Lab Routine Elevated C-reactive protein (CRP) Elevated sed rate Expected: 03/20/2024 (Approximate), Expires: 12/29/2024 [facility] Work Phone: Comment on above: Expected: 03/20/2024 (Approximate), Expi res: 12/29/2024 Start: 03-20-2024 End: 06-19-2024 Ferritin [Mass/volume] in Serum or Plasma FERRITIN Lab Routine Megaloblastic anemia due to vitamin B12 deficiency Elevated sed rate Obstructive sleep apnea syndrome Expected: 03/20/2024 (Approximate), Expires: 06/19/2024 [facility] Comment on above: Expected: 03/20/2024 (Approximate), Expi res: 06/19/2024 Start: 03-20-2024 End: 06-19-2024 Folate [Mass/volume] in Serum or Plasma FOLATE, SERUM Lab Routine Megaloblastic anemia due to vitamin B12 deficiency Elevated sed rate Obstructive sleep apnea syndrome Expected: 03/20/2024 (Approximate), Expires: 06/19/2024 [facility] Comment on above: Expected: 03/20/2024 (Approximate), Expi res: 06/19/2024 Start: 03-20-2024 End: 06-19-2024 IMMUNOGLOBULINS,IGG,IGA,IG M IMMUNOGLOBULINS,IGG,IGA,IG M Lab Routine Megaloblastic anemia due to vitamin B12 deficiency Elevated sed rate Obstructive sleep apnea syndrome Expected: 03/20/2024 (Approximate), Expires: 06/19/2024 [facility] Comment on above: Expected: 03/20/2024 (Approximate), Expi res: 06/19/2024 Start: 03-20-2024 End: 06-19-2024 Iron and Iron binding capacity panel - Serum or Plasma IRON AND TIBC Lab Routine Megaloblastic anemia due to vitamin B12 deficiency Elevated sed rate Obstructive sleep apnea syndrome Expected: 03/20/2024 (Approximate), Expires: 06/19/2024 [facility] Comment on above: Expected: 03/20/2024 (Approximate), Expi res: 06/19/2024 Start: 03-18-2024 End: 03-18-2024 Patient encounter procedure 03/18/2024 9:00 AM EDT [facility] [address] [address] Lynne Ni MD [address] [place], [place] [id number] May offer 03/18/24 Sat REJ 4th floor in person/virtual/phone for lupus Rheumatology Comment on above: May offer 03/18/24 Sat [facility] 4th floor in person/virtual/phone for lupus Start: 03-16-2024 Patient referral [facility] Work Phone: Start: 03-16-2024 End: 05-16-2025 US Breast - bilateral Bilateral breast US complete Imaging Routine Nipple discharge Expected: 03/16/2024, Expires: 05/16/[address] [facility] Work Phone: Comment on above: Expected: 03/16/2024, Expires: Start: 03-16-2024 End: 03-16-2024 Specialty Pharmacy [facility] Comment on above: REFILL- Benlysta- PAx 02/11/25- NCA 5-l/m 03/13 Arrived Start: 03-13-2024 End: 03-13-2024 Specialty Pharmacy [facility] Comment on above: REFILL- Benlysta- PAx 02/04/24- NCA 10/10 24-, ND 02/23-renewal sub 02/13 REFILL- Benlysta- PA x 02/11/25- NCA 09/2024-, Start: 02-22-2024 End: 02-22-2024 Nursing evaluation of patient and report 02/22/2024 11:45 AM EDT Nurse Visit Hematology/Oncology [address] [place] [address] Cele Marshall Nurse Dre [address] [place] [address] b12 Hematology/Oncology Comment on above: b12 Start: 02-22-2024 End: 02-22-2024 Patient encounter procedure 02/22/2024 11:15 AM EDT Office Visit [facility] [address] [place] [address] LAb [facility] Comment on above: LAb Start: 02-21-2024 End: 02-21-2024 Nursing evaluation of patient and report 02/21/2024 10:45 AM EDT Nurse Visit Hematology/Oncology [address] [place] [address] Cele Marshall Nurse Dre [address] [place] [address] b12 Hematology/Oncology Comment on above: b12 Start: 02-21-2024 End: 02-21-2024 Patient encounter procedure 02/21/2024 10:30 AM EDT Office Visit [facility] [address] [place] [address] LAb [facility] Comment on above: LAb Start: 02-16-2024 [facility] Start: 02-14-2024 End: 02-14-2024 Follow-up encounter Neurology Comment on above: Cpap follow up REFILL- Benlysta- PA x 02/04/24- NCA 09/2024-, ND 02/23 Start: 01-27-2024 End: 04-27-2024 Bacteria identified in Blood by Culture BLOOD CULTURE Microbiology Routine Pseudomonas infection Expected: 01/27/2024, Expires: 04/27/2024 [facility] Work Phone: Comment on above: Expected: 01/27/2024, Expires: Start: 01-27-2024 End: 01-27-2024 Follow-up encounter 01/27/2024 10:00 AM EDT [facility] Infectious Disease [address] [place] [address] [place] [address] [facility] [place] [address] follow up Infectious Disease Comment on above: follow up Start: 01-25-2024 End: 01-25-2024 Nursing evaluation of patient and report Hematology/Oncology Comment on above: b12 B12(change date) Start: 01-25-2024 End: 01-25-2024 Patient encounter procedure [facility] Comment on above: LAb NO LAB ORDERS LAb Start: 01-24-2024 Influenza vaccination Influenza Vaccine (#1) [facility] Comment on above: Postponed from 01/22/2023 (Patient Refus ed) Start: 01-23-2024 Covid-19 Vaccine ( season) Covid-19 Vaccine ( season) [facility] Start: 01-23-2024 Covid-19 Vaccine ( season) Covid-19 Vaccine ( season) [facility] Start: 01-23-2024 Influenza vaccination [facility] Start: 01-20-2024 End: 01-20-2024 Specialty Pharmacy [facility] Comment on above: refill - benlysta- NCA 09/2024-- pa exp: 02/04/24- 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 Start: 12-27-2023 End: 12-27-2023 Nursing evaluation of patient and report 12/27/2023 12:00 PM EDT Nurse Visit Hematology/Oncology [address] [place] [address] Cele Marshall Nurse Dre [address] [place] [address] b12 Hematology/Oncology Comment on above: b12 Start: 12-27-2023 End: 12-27-2023 Follow-up encounter 12/27/2023 11:30 AM EDT Visit (SP) Office Hematology/Oncology [address] [place] [address] Neda Narayanan, PA-C [address] [place] [address] 13 week follow up, labs 1 week before Hematology/Oncology Comment on above: 13 week follow up, labs 1 week before Start: 12-27-2023 End: 12-27-2023 Patient encounter procedure 12/27/2023 11:15 AM EDT Office Visit [facility] [address] [place] [address] LAb [facility] Comment on above: LAb Start: 12-13-2023 End: 12-13-2023 Specialty Pharmacy 12/13/2023 10:00 AM EDT Specialty Pharmacy [id number] [place] [address] Pharmacist, [facility] [employer] [place] [address] refill - benlysta- NCA - pa exp: 02/04/24- [facility] Comment on above: refill - benlysta- NCA - pa exp: 02/04/24- Start: 12-10-2023 End: 12-10-2023 Follow-up encounter 12/10/2023 10:45 AM EDT Visit (SP) Office Hematology/Oncology [address] [place] [address] Jose Najera MD [address] [address] 13 week follow up, labs 1 week before Hematology/Oncology Comment on above: 13 week follow up, labs 1 week before Start: 12-04-2023 End: 09-03-2024 25-hydroxyvitamin D3 [Mass/volume] in Serum or Plasma VITAMIN D 25 HYDROXY Lab Routine Vitamin D deficiency Expected: 12/04/2023 (Approximate), Expires: 09/03/2024 [facility] Work Phone: Comment on above: Expected: 12/04/2023 (Approximate), Expi res: 09/03/2024 Start: 12-04-2023 End: 09-03-2024 C reactive protein [Mass/volume] in Serum or Plasma C-REACTIVE PROTEIN Lab Routine Elevated sed rate Elevated C-reactive protein (CRP) Expected: 12/04/2023 (Approximate), Expires: 09/03/2024 [facility] Work Phone: Comment on above: Expected: 12/04/2023 (Approximate), Expi res: 09/03/2024 Start: 12-04-2023 End: 09-03-2024 CBC panel - Blood by Automated count COMPLETE BLOOD COUNT Lab Routine Anemia of chronic disease Expected: 12/04/2023 (Approximate), Expires: 09/03/2024 [facility] Work Phone: Comment on above: Expected: 12/04/2023 (Approximate), Expi res: 09/03/2024 Start: 12-04-2023 End: 09-03-2024 Comprehensive metabolic 2000 panel - Serum or Plasma COMPREHENSIVE METABOLIC PANEL Lab Routine Elevated LFTs Expected: 12/04/2023 (Approximate), Expires: 09/03/2024 [facility] Work Phone: Comment on above: Expected: 12/04/2023 (Approximate), Expi res: 09/03/2024 Start: 12-04-2023 End: 09-03-2024 Erythrocyte sedimentation rate SEDIMENTATION RATE, WESTERGREN Lab Routine Elevated sed rate Elevated C-reactive protein (CRP) Expected: 12/04/2023 (Approximate), Expires: 09/03/2024 [facility] Work Phone: Comment on above: Expected: 12/04/2023 (Approximate), Expi res: 09/03/2024 Start: 12-03-2023 End: 12-03-2023 Nursing evaluation of patient and report 12/03/2023 11:00 AM EDT Nurse Visit Hematology/Oncology [address] [place] [address] Cele Marshall Nurse Dre [address] [address] b12 Hematology/Oncology Comment on above: b12 Start: 12-03-2023 End: 12-03-2023 Patient encounter procedure 12/03/2023 10:45 AM EDT Office Visit [facility] [address] [place] [address] [place] [address] lab [facility] Comment on above: lab Start: 12-02-2023 End: 09-08-2024 CBC W Auto Differential panel - Blood COMPLETE BLOOD COUNT AND DIFFERENTIAL Lab Routine Megaloblastic anemia due to vitamin B12 deficiency High total serum IgM Expected: 12/02/2023 (Approximate), Expires: 09/08/2024 [facility] Work Phone: Comment on above: Expected: 12/02/2023 (Approximate), Expi res: 09/08/2024 Start: 12-02-2023 End: 09-08-2024 Cobalamin (Vitamin B12) [Mass/volume] in Serum or Plasma VITAMIN B12 Lab Routine Megaloblastic anemia due to vitamin B12 deficiency High total serum IgM Expected: 12/02/2023 (Approximate), Expires: 09/08/2024 [facility] Work Phone: Comment on above: Expected: 12/02/2023 (Approximate), Expi res: 09/08/2024 Start: 12-02-2023 End: 09-08-2024 Comprehensive metabolic 2000 panel - Serum or Plasma COMPREHENSIVE METABOLIC PANEL Lab Routine Megaloblastic anemia due to vitamin B12 deficiency High total serum IgM Expected: 12/02/2023 (Approximate), Expires: 09/08/2024 [facility] Work Phone: Comment on above: Expected: 12/02/2023 (Approximate), Expi res: 09/08/2024 Start: 12-02-2023 End: 03-02-2024 Erythrocyte sedimentation rate SEDIMENTATION RATE, WESTERGREN Lab Routine Megaloblastic anemia due to vitamin B12 deficiency High total serum IgM Expected: 12/02/2023 (Approximate), Expires: 03/02/2024 [facility] Work Phone: Comment on above: Expected: 12/02/2023 (Approximate), Expi res: 03/02/2024 Start: 12-02-2023 End: 09-08-2024 Ferritin [Mass/volume] in Serum or Plasma FERRITIN Lab Routine Megaloblastic anemia due to vitamin B12 deficiency High total serum IgM Expected: 12/02/2023 (Approximate), Expires: 09/08/2024 [facility] Work Phone: Comment on above: Expected: 12/02/2023 (Approximate), Expi res: 09/08/2024 Start: 12-02-2023 End: 09-08-2024 Folate [Mass/volume] in Serum or Plasma FOLATE, SERUM Lab Routine Megaloblastic anemia due to vitamin B12 deficiency High total serum IgM Expected: 12/02/2023 (Approximate), Expires: 09/08/2024 [facility] Work Phone: Comment on above: Expected: 12/02/2023 (Approximate), Expi res: 09/08/2024 Start: 12-02-2023 End: 03-02-2024 IgA [Mass/volume] in Serum or Plasma IMMUNOGLOBULIN A Lab Routine Megaloblastic anemia due to vitamin B12 deficiency High total serum IgM Expected: 12/02/2023 (Approximate), Expires: 03/02/2024 [facility] Work Phone: Comment on above: Expected: 12/02/2023 (Approximate), Expi res: 03/02/2024 Start: 12-02-2023 End: 03-02-2024 IgE [Units/volume] in Serum or Plasma IMMUNOGLOBULIN E Lab Routine Megaloblastic anemia due to vitamin B12 deficiency High total serum IgM Expected: 12/02/2023 (Approximate), Expires: 03/02/2024 [facility] Work Phone: Comment on above: Expected: 12/02/2023 (Approximate), Expi res: 03/02/2024 Start: 12-02-2023 End: 03-02-2024 IgG [Mass/volume] in Serum or Plasma IMMUNOGLOBULIN G Lab Routine Megaloblastic anemia due to vitamin B12 deficiency High total serum IgM Expected: 12/02/2023 (Approximate), Expires: 03/02/2024 [facility] Work Phone: Comment on above: Expected: 12/02/2023 (Approximate), Expi res: 03/02/2024 Start: 12-02-2023 End: 03-02-2024 IgM [Mass/volume] in Serum or Plasma IMMUNOGLOBULIN M Lab Routine Megaloblastic anemia due to vitamin B12 deficiency High total serum IgM Expected: 12/02/2023 (Approximate), Expires: 03/02/2024 [facility] Work Phone: Comment on above: Expected: 12/02/2023 (Approximate), Expi res: 03/02/2024 Start: 12-02-2023 End: 09-08-2024 Iron and Iron binding capacity panel - Serum or Plasma IRON AND TIBC Lab Routine Megaloblastic anemia due to vitamin B12 deficiency High total serum IgM Expected: 12/02/2023 (Approximate), Expires: 09/08/2024 [facility] Work Phone: Comment on above: Expected: 12/02/2023 (Approximate), Expi res: 09/08/2024 Start: 11-29-2023 End: 11-29-2023 Nursing evaluation of patient and report 11/29/2023 2:15 PM EDT Nurse Visit Hematology/Oncology [address] [place] [address] Cele Marshall Nurse Dre [address] [place] [address] b12 Hematology/Oncology Comment on above: b12 Start: 11-15-2023 End: 11-15-2023 Specialty Pharmacy 11/15/2023 10:00 AM EDT Specialty Pharmacy [id number] [place] [address] Pharmacist, [facility] [address] [place] [address] [place] [address] refill - benlysta- NCA 09/2024-- pa exp: 02/04/24- [facility] Comment on above: refill - benlysta- NCA 09/2024-Thursdays- pa exp: 02/04/24- Start: 10-29-2023 End: 10-29-2023 Nursing evaluation of patient and report 10/29/2023 11:00 AM EDT Nurse Visit Hematology/Oncology [address] [place] [address] Cele Marshall Nurse Dre [address] [address] b12 Hematology/Oncology Comment on above: b12 Start: 10-15-2023 End: 10-15-2023 Specialty Pharmacy 10/15/2023 10:00 AM EDT Specialty Pharmacy [facility] [address] [place] [address] Pharmacist, [facility] [address] [place] [address] [place] [address] refill - benlysta-Thursdays- pa exp: 02/04/24-l/m 10/11 [facility] Comment on above: refill - benlysta-Thursdays- pa exp: 01/22 08/14-l/m 10/11 Start: 10-12-2023 End: 10-12-2023 Specialty Pharmacy 10/12/2023 10:00 AM EDT Specialty Pharmacy [facility] [address] [place] [id number] Pharmacist, [facility] [address] [place] [address] [place] [address] refill - benlysta-Thursdays- pa exp: 02/04/24- [facility] Comment on above: refill - benlysta-Thursdays- pa exp: 01/22 08/14- Start: 10-05-2023 End: 10-05-2023 Patient encounter procedure 10/05/2023 8:00 AM EDT [facility] [address] [place] [address] Lynne Ni MD [address] [facility] [place] [address] 6 mo f/u for [facility] Rheumatology Comment on above: 6 mo f/u for Lupus Start: 10-01-2023 End: 10-01-2023 Nursing evaluation of patient and report 10/01/2023 11:00 AM EDT Nurse Visit Hematology/Oncology [address] [place] [address] Cele Marshall Nurse Dre [address] [address] b12 Hematology/Oncology Comment on above: b12 Start: 09-16-2023 End: 09-16-2023 Specialty Pharmacy 09/16/2023 10:00 AM EDT Specialty Pharmacy [id number] [place] [address] Pharmacist, [facility] [address] [place] [address] [address] [place], [place] [id number] refill - benlysta-Thursdays- pa exp: 02/04/24-lvm [facility] Comment on above: refill - benlysta-Thursdays- pa exp: 01/22 08/14-lvm Start: 09-13-2023 End: 09-13-2023 Patient encounter procedure 09/13/2023 9:00 AM EDT Office Visit [facility] [address] [place] [address] Juan Luis Richardson MD [address] [facility] [address] [id number] [facility] Start: 07-19-2023 End: 07-19-2023 Patient encounter procedure [facility] Start: 07-15-2023 End: 07-15-2023 Patient encounter procedure 07/15/2023 10:50 AM EST Office Visit [facility] [address] [place] [address] Bernabe English MD [address] [place] [address] [facility] Start: 07-06-2023 End: 07-06-2023 Patient encounter procedure 07/06/2023 2:30 PM EST Office Visit [facility] [address] [place] [id number] Juan Luis Richardson MD [address] [facility] [address] [place] [address] [facility] [address] Start: 07-06-2023 End: 07-06-2024 Protein electrophoresis, serum Protein electrophoresis, serum Lab Routine Autoimmune disease (CMS/HCC) Autonomic dysfunction Expected: 07/06/2023 (Approximate), Expires: 07/06/[address] [facility] Work Phone: Comment on above: Expected: 07/06/2023 (Approximate), Expi res: 07/06/2024 Start: 07-06-2023 End: 07-06-2024 Protein electrophoresis, urine Protein electrophoresis, urine Lab Routine Autoimmune disease (CMS/HCC) Autonomic dysfunction Expected: 07/06/2023 (Approximate), Expires: 07/06/[address] [facility] Comment on above: Expected: 07/06/2023 (Approximate), Expi res: 07/06/2024 Start: 06-09-2023 End: 06-09-2024 Holter monitor study Holter Or Event [facility] Routine Irregular heart rate Expected: [...] apnea syndrome Expected: 06/09/2023 (Approximate), Expires: 06/09/2025 [facility] Work Phone: Comment on above: Expected: 06/09/2023 (Approximate), Expi res: 06/09/2025 Start: 04-25-2023 End: 01-25-2024 25-hydroxyvitamin D3 [Mass/volume] in Serum or Plasma VITAMIN D 25 HYDROXY Lab Routine Vitamin D deficiency Expected: 04/25/2023 (Approximate), Expires: 01/25/2024 [facility] Work Phone: Comment on above: Expected: 04/25/2023 (Approximate), Expi res: 01/25/2024 Start: 04-25-2023 End: 01-25-2024 C reactive protein [Mass/volume] in Serum or Plasma C-REACTIVE PROTEIN (CRP) Lab Routine Elevated sed rate Elevated C-reactive protein (CRP) Expected: 04/25/2023 (Approximate), Expires: 01/25/2024 [facility] Work Phone: Comment on above: Expected: 04/25/2023 (Approximate), Expi res: 01/25/2024 Start: 04-25-2023 End: 01-25-2024 CBC panel - Blood by Automated count CBC Lab Routine Anemia of chronic disease Expected: 04/25/2023 (Approximate), Expires: 01/25/2024 [facility] Work Phone: Comment on above: Expected: 04/25/2023 (Approximate), Expi res: 01/25/2024 Start: 04-25-2023 End: 01-25-2024 Comprehensive metabolic 2000 panel - Serum or Plasma COMP METABOLIC PANEL Lab Routine Elevated LFTs Expected: 04/25/2023 (Approximate), Expires: 01/25/2024 [facility] Work Phone: Comment on above: Expected: 04/25/2023 (Approximate), Expi res: 01/25/2024 Start: 04-25-2023 End: 01-25-2024 Erythrocyte sedimentation rate SED RATE WESTERGREN Lab Routine Elevated sed rate Elevated C-reactive protein (CRP) Expected: 04/25/2023 (Approximate), Expires: 01/25/2024 [facility] Work Phone: Comment on above: Expected: 04/25/2023 (Approximate), Expi res: 01/25/2024 Start: 04-20-2023 COVID-19 Vaccine (4 - Pfizer risk series) COVID-19 Vaccine (4 - Pfizer risk series) [facility] Start: 04-20-2023 Covid-19 Vaccine ( season) Covid-19 Vaccine () [facility] Start: 04-20-2023 Covid-19 Vaccine ( season) Covid-19 Vaccine ( season) [facility] Start: 04-16-2023 End: 02-20-2024 CBC W Auto Differential panel - Blood CBC + DIFF Lab Routine Megaloblastic anemia due to vitamin B12 deficiency Elevated sed rate Chronic fatigue and malaise High total serum IgM JOSE RAFAEL (obstructive sleep apnea) Expected: 04/16/2023 (Approximate), Expires: 02/20/2024 [facility] Work Phone: Comment on above: Expected: 04/16/2023 (Approximate), Expi res: 02/20/2024 Start: 04-16-2023 End: 02-20-2024 Cobalamin (Vitamin B12) [Mass/volume] in Serum or Plasma VITAMIN B12 BLOOD Lab Routine Megaloblastic anemia due to vitamin B12 deficiency Elevated sed rate Chronic fatigue and malaise High total serum IgM JOSE RAFAEL (obstructive sleep apnea) Expected: 04/16/2023 (Approximate), Expires: 02/20/2024 [facility] Work Phone: Comment on above: Expected: 04/16/2023 (Approximate), Expi res: 02/20/2024 Start: 04-16-2023 End: 02-20-2024 Comprehensive metabolic 2000 panel - Serum or Plasma COMP METABOLIC PANEL Lab Routine Megaloblastic anemia due to vitamin B12 deficiency Elevated sed rate Chronic fatigue and malaise High total serum IgM JOSE RAFAEL (obstructive sleep apnea) Expected: 04/16/2023 (Approximate), Expires: 02/20/2024 [facility] Work Phone: Comment on above: Expected: 04/16/2023 (Approximate), Expi res: 02/20/2024 Start: 04-16-2023 End: 02-20-2024 Ferritin [Mass/volume] in Serum or Plasma FERRITIN BLD Lab Routine Megaloblastic anemia due to vitamin B12 deficiency Elevated sed rate Chronic fatigue and malaise High total serum IgM JOSE RAFAEL (obstructive sleep apnea) Expected: 04/16/2023 (Approximate), Expires: 02/20/2024 [facility] Work Phone: Comment on above: Expected: 04/16/2023 (Approximate), Expi res: 02/20/2024 Start: 04-16-2023 End: 02-20-2024 Folate [Mass/volume] in Serum or Plasma FOLATE SERUM Lab Routine Megaloblastic anemia due to vitamin B12 deficiency Elevated sed rate Chronic fatigue and malaise High total serum IgM JOSE RAFAEL (obstructive sleep apnea) Expected: 04/16/2023 (Approximate), Expires: 02/20/2024 [facility] Work Phone: Comment on above: Expected: 04/16/2023 (Approximate), Expi res: 02/20/2024 Start: 04-16-2023 End: 02-20-2024 Iron and Iron binding capacity panel - Serum or Plasma IRON + TIBC Lab Routine Megaloblastic anemia due to vitamin B12 deficiency Elevated sed rate Chronic fatigue and malaise High total serum IgM JOSE RAFAEL (obstructive sleep apnea) Expected: 04/16/2023 (Approximate), Expires: 02/20/2024 [facility] Work Phone: Comment on above: Expected: 04/16/2023 (Approximate), Expi res: 02/20/2024 Start: 03-17-2023 Diabetes mellitus screening Diabetes Screening [facility] Start: 03-10-2023 End: 06-09-2023 Insulin [Units/volume] in Serum or Plasma INSULIN ASSAY BLOOD Lab Routine Insulin resistance, unspecified Expected: 03/10/2023, Expires: 06/09/2023 [facility] Work Phone: Comment on above: Expected: 03/10/2023, Expires: Start: 03-10-2023 End: 06-09-2023 INSULIN ANTIBODY BLD INSULIN ANTIBODY BLD Lab Routine Insulin resistance, unspecified Expected: 03/10/2023, Expires: 06/09/2023 [facility] Work Phone: Comment on above: Expected: 03/10/2023, Expires: Start: 02-11-2023 End: 02-08-2024 [id number] [Mass/volume] in Serum or Plasma B2 MICROGLOBULIN B Lab Routine Megaloblastic anemia due to vitamin B12 deficiency High total serum IgM Elevated sed rate Expected: 02/11/2023 (Approximate), Expires: 02/08/2024 [facility] Work Phone: Comment on above: Expected: 02/11/2023 (Approximate), Expi res: 02/08/2024 Start: 02-11-2023 End: 02-08-2024 Calcium.ionized [Moles/volume] in Blood CALCIUM IONIZED BLOOD Lab Routine Megaloblastic anemia due to vitamin B12 deficiency High total serum IgM Elevated sed rate Expected: 02/11/2023 (Approximate), Expires: 02/08/2024 [facility] Work Phone: Comment on above: Expected: 02/11/2023 (Approximate), Expi res: 02/08/2024 Start: 02-11-2023 End: 02-08-2024 CBC W Auto Differential panel - Blood CBC + DIFF Lab Routine Megaloblastic anemia due to vitamin B12 deficiency High total serum IgM Elevated sed rate Expected: 02/11/2023 (Approximate), Expires: 02/08/2024 [facility] Work Phone: Comment on above: Expected: 02/11/2023 (Approximate), Expi res: 02/08/2024 Start: 02-11-2023 End: 02-08-2024 Cobalamin (Vitamin B12) [Mass/volume] in Serum or Plasma VITAMIN B12 BLOOD Lab Routine Megaloblastic anemia due to vitamin B12 deficiency High total serum IgM Elevated sed rate Expected: 02/11/2023 (Approximate), Expires: 02/08/2024 [facility] Work Phone: Comment on above: Expected: 02/11/2023 (Approximate), Expi res: 02/08/2024 Start: 02-11-2023 End: 02-08-2024 Comprehensive metabolic 2000 panel - Serum or Plasma COMP METABOLIC PANEL Lab Routine Megaloblastic anemia due to vitamin B12 deficiency High total serum IgM Elevated sed rate Expected: 02/11/2023 (Approximate), Expires: 02/08/2024 [facility] Work Phone: Comment on above: Expected: 02/11/2023 (Approximate), Expi res: 02/08/2024 Start: 02-11-2023 End: 02-08-2024 Ferritin [Mass/volume] in Serum or Plasma FERRITIN BLD Lab Routine Megaloblastic anemia due to vitamin B12 deficiency High total serum IgM Elevated sed rate Expected: 02/11/2023 (Approximate), Expires: 02/08/2024 [facility] Work Phone: Comment on above: Expected: 02/11/2023 (Approximate), Expi res: 02/08/2024 Start: 02-11-2023 End: 02-08-2024 Folate [Mass/volume] in Serum or Plasma FOLATE SERUM Lab Routine Megaloblastic anemia due to vitamin B12 deficiency High total serum IgM Elevated sed rate Expected: 02/11/2023 (Approximate), Expires: 02/08/2024 [facility] Work Phone: Comment on above: Expected: 02/11/2023 (Approximate), Expi res: 02/08/2024 Start: 02-11-2023 End: 02-08-2024 Iron and Iron binding capacity panel - Serum or Plasma IRON + TIBC Lab Routine Megaloblastic anemia due to vitamin B12 deficiency High total serum IgM Elevated sed rate Expected: 02/11/2023 (Approximate), Expires: 02/08/2024 [facility] Work Phone: Comment on above: Expected: 02/11/2023 (Approximate), Expi res: 02/08/2024 Start: 02-11-2023 End: 04-13-2023 KAPPA/FARMER,FREE,SER KAPPA/FARMER,FREE,SER Lab Routine Megaloblastic anemia due to vitamin B12 deficiency High total serum IgM Elevated sed rate Expected: 02/11/2023 (Approximate), Expires: 04/13/2023 [facility] Work Phone: Comment on above: Expected: 02/11/2023 (Approximate), Expi res: 04/13/2023 Start: 02-11-2023 End: 02-08-2024 Lactate dehydrogenase [Enzymatic activity/volume] in Serum or Plasma LD LACTATE DEHYDRO Lab Routine Megaloblastic anemia due to vitamin B12 deficiency High total serum IgM Elevated sed rate Expected: 02/11/2023 (Approximate), Expires: 02/08/2024 [facility] Work Phone: Comment on above: Expected: 02/11/2023 (Approximate), Expi res: 02/08/2024 Start: 02-11-2023 End: 02-08-2024 MONOCLONAL PROTEIN, SERUM (BLOOD) MONOCLONAL PROTEIN, SERUM (BLOOD) Lab Routine Megaloblastic anemia due to vitamin B12 deficiency High total serum IgM Elevated sed rate Expected: 02/11/2023 (Approximate), Expires: 02/08/2024 [facility] Work Phone: Comment on above: Expected: 02/11/2023 (Approximate), Expi res: 02/08/2024 Start: 02-11-2023 End: 02-08-2024 Phosphate [Mass/volume] in Serum or Plasma PHOSPHORUS INORGANIC Lab Routine Megaloblastic anemia due to vitamin B12 deficiency High total serum IgM Elevated sed rate Expected: 02/11/2023 (Approximate), Expires: 02/08/2024 [facility] Work Phone: Comment on above: Expected: 02/11/2023 (Approximate), Expi res: 02/08/2024 Start: 02-11-2023 End: 02-08-2024 PROTEIN ELECTROPHORESIS SERUM W/INTERP PROTEIN ELECTROPHORESIS SERUM W/INTERP Lab Routine Megaloblastic anemia due to vitamin B12 deficiency High total serum IgM Elevated sed rate Expected: 02/11/2023 (Approximate), Expires: 02/08/2024 [facility] Work Phone: Comment on above: Expected: 02/11/2023 (Approximate), Expi res: 02/08/2024 Start: 02-11-2023 End: 02-08-2024 Urate [Mass/volume] in Serum or Plasma URIC ACID BLOOD Lab Routine Megaloblastic anemia due to vitamin B12 deficiency High total serum IgM Elevated sed rate Expected: 02/11/2023 (Approximate), Expires: 02/08/2024 [facility] Work Phone: Comment on above: Expected: 02/11/2023 (Approximate), Expi res: 02/08/2024 Start: 01-22-2023 Influenza vaccination [facility] Start: 12-17-2022 End: 10-23-2023 CBC W Auto Differential panel - Blood CBC + DIFF Lab Routine Megaloblastic anemia due to vitamin B12 deficiency Expected: 12/17/2022 (Approximate), Expires: 10/23/2023 [facility] Work Phone: Comment on above: Expected: 12/17/2022 (Approximate), Expi res: 10/23/2023 Start: 12-17-2022 End: 10-23-2023 Cobalamin (Vitamin B12) [Mass/volume] in Serum or Plasma VITAMIN B12 BLOOD Lab Routine Megaloblastic anemia due to vitamin B12 deficiency Expected: 12/17/2022 (Approximate), Expires: 10/23/2023 [facility] Work Phone: Comment on above: Expected: 12/17/2022 (Approximate), Expi res: 10/23/2023 Start: 12-17-2022 End: 10-23-2023 Comprehensive metabolic 2000 panel - Serum or Plasma COMP METABOLIC PANEL Lab Routine Megaloblastic anemia due to vitamin B12 deficiency Expected: 12/17/2022 (Approximate), Expires: 10/23/2023 [facility] [facility] Comment on above: Expected: 12/17/2022 (Approximate), Expi res: 10/23/2023 Start: 12-17-2022 End: 10-23-2023 Ferritin [Mass/volume] in Serum or Plasma FERRITIN BLD Lab Routine Megaloblastic anemia due to vitamin B12 deficiency Expected: 12/17/2022 (Approximate), Expires: 10/23/2023 [facility] Work Phone: Comment on above: Expected: 12/17/2022 (Approximate), Expi res: 10/23/2023 Start: 12-17-2022 End: 10-23-2023 Folate [Mass/volume] in Serum or Plasma FOLATE SERUM Lab Routine Megaloblastic anemia due to vitamin B12 deficiency Expected: 12/17/2022 (Approximate), Expires: 10/23/2023 [facility] Work Phone: Comment on above: Expected: 12/17/2022 (Approximate), Expi res: 10/23/2023 Start: 12-17-2022 End: 10-23-2023 Iron and Iron binding capacity panel - Serum or Plasma IRON + TIBC Lab Routine Megaloblastic anemia due to vitamin B12 deficiency Expected: 12/17/2022 (Approximate), Expires: 10/23/2023 [facility] Work Phone: Comment on above: Expected: 12/17/2022 (Approximate), Expi res: 10/23/2023 Start: 10-23-2022 End: 12-23-2022 25-hydroxyvitamin D3 [Mass/volume] in Serum or Plasma VITAMIN D 25 HYDROXY Lab Routine Megaloblastic anemia due to vitamin B12 deficiency Elevated sed rate High total serum IgM Chronic fatigue and malaise JOSE RAFAEL (obstructive sleep apnea) Expected: 10/23/2022, Expires: 12/23/2022 [facility] Work Phone: Comment on above: Expected: 10/23/2022, Expires: 3 Start: 10-23-2022 End: 12-23-2022 C reactive protein [Mass/volume] in Serum or Plasma C-REACTIVE PROTEIN (CRP) Lab Routine Megaloblastic anemia due to vitamin B12 deficiency Elevated sed rate High total serum IgM Chronic fatigue and malaise JOSE RAFAEL (obstructive sleep apnea) Expected: 10/23/2022, Expires: 12/23/2022 [facility] Work Phone: Comment on above: Expected: 10/23/2022, Expires: 3 Start: 10-23-2022 End: 12-23-2022 CBC W Auto Differential panel - Blood CBC + DIFF Lab Routine Megaloblastic anemia due to vitamin B12 deficiency Elevated sed rate High total serum IgM Chronic fatigue and malaise JOSE RAFAEL (obstructive sleep apnea) Expected: 10/23/2022, Expires: 12/23/2022 [facility] Work Phone: Comment on above: Expected: 10/23/2022, Expires: 3 Start: 10-23-2022 End: 12-23-2022 Cobalamin (Vitamin B12) [Mass/volume] in Serum or Plasma VITAMIN B12 BLOOD Lab Routine Megaloblastic anemia due to vitamin B12 deficiency Elevated sed rate High total serum IgM Chronic fatigue and malaise JOSE RAFAEL (obstructive sleep apnea) Expected: 10/23/2022, Expires: 12/23/2022 [facility] Work Phone: Comment on above: Expected: 10/23/2022, Expires: 3 Start: 10-23-2022 End: 12-23-2022 Comprehensive metabolic 2000 panel - Serum or Plasma COMP METABOLIC PANEL Lab Routine Megaloblastic anemia due to vitamin B12 deficiency Elevated sed rate High total serum IgM Chronic fatigue and malaise JOSE RAFAEL (obstructive sleep apnea) Expected: 10/23/2022, Expires: 12/23/2022 [facility] Work Phone: Comment on above: Expected: 10/23/2022, Expires: 3 Start: 10-23-2022 End: 12-23-2022 Erythrocyte sedimentation rate SED RATE WESTERGREN Lab Routine Megaloblastic anemia due to vitamin B12 deficiency Elevated sed rate High total serum IgM Chronic fatigue and malaise JOSE RAFAEL (obstructive sleep apnea) Expected: 10/23/2022, Expires: 12/23/2022 [facility] Work Phone: Comment on above: Expected: 10/23/2022, Expires: 3 Start: 10-23-2022 End: 12-23-2022 Lactate dehydrogenase [Enzymatic activity/volume] in Serum or Plasma LD LACTATE DEHYDRO Lab Routine Megaloblastic anemia due to vitamin B12 deficiency Elevated sed rate High total serum IgM Chronic fatigue and malaise JOSE RAFAEL (obstructive sleep apnea) Expected: 10/23/2022, Expires: 12/23/2022 [facility] Work Phone: Comment on above: Expected: 10/23/2022, Expires: 3 Start: 10-23-2022 End: 12-23-2022 MONOCLONAL PROTEIN, SERUM (BLOOD) MONOCLONAL PROTEIN, SERUM (BLOOD) Lab Routine Megaloblastic anemia due to vitamin B12 deficiency Elevated sed rate High total serum IgM Chronic fatigue and malaise JOSE RAFAEL (obstructive sleep apnea) Expected: 10/23/2022, Expires: 12/23/2022 [facility] Work Phone: Comment on above: Expected: 10/23/2022, Expires: 3 Start: 10-23-2022 End: 12-23-2022 PROT ELECT SERUM WITH DANA AND INTERP PROT ELECT SERUM WITH DANA AND INTERP Lab Routine Megaloblastic anemia due to vitamin B12 deficiency Elevated sed rate High total serum IgM Chronic fatigue and malaise JOSE RAFAEL (obstructive sleep apnea) Expected: 10/23/2022, Expires: 12/23/2022 [facility] Work Phone: Comment on above: Expected: 10/23/2022, Expires: Start: 09-19-2022 End: 08-20-2023 CBC panel - Blood by Automated count CBC Lab Routine Anemia of chronic disease Expected: 09/19/2022 (Approximate), Expires: 08/20/2023 [facility] Work Phone: Comment on above: Expected: 09/19/2022 (Approximate), Expi res: 08/20/2023 Start: 09-19-2022 End: 08-20-2023 Comprehensive metabolic 2000 panel - Serum or Plasma COMP METABOLIC PANEL Lab Routine Elevated LFTs Expected: 09/19/2022 (Approximate), Expires: 08/20/2023 [facility] Work Phone: Comment on above: Expected: 09/19/2022 (Approximate), Expi res: 08/20/2023 Start: 09-19-2022 End: 11-19-2022 TPMT PHENOTYPE/ENZYME ACTIVITY TPMT PHENOTYPE/ENZYME ACTIVITY Lab Routine 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 retirement 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 Expected: 09/19/2022 (Approximate), Expires: 11/19/2022 [facility] Work Phone: Comment on above: Expected: 09/19/2022 (Approximate), Expi res: 11/19/2022 Start: 08-28-2022 End: 10-28-2022 25-hydroxyvitamin D3 [Mass/volume] in Serum or Plasma VITAMIN D 25 HYDROXY Lab Routine Megaloblastic anemia due to vitamin B12 deficiency Elevated sed rate High total serum IgM Chronic fatigue and malaise Expected: 08/28/2022 (Approximate), Expires: 10/28/2022 [facility] Work Phone: Comment on above: Expected: 08/28/2022 (Approximate), Expi res: 10/28/2022 Start: 08-28-2022 End: 07-26-2023 [id number] [Mass/volume] in Serum or Plasma B2 MICROGLOBULIN B Lab Routine Megaloblastic anemia due to vitamin B12 deficiency Elevated sed rate High total serum IgM Chronic fatigue and malaise Expected: 08/28/2022 (Approximate), Expires: 07/26/2023 [facility] Work Phone: Comment on above: Expected: 08/28/2022 (Approximate), Expi res: 07/26/2023 Start: 08-28-2022 End: 10-28-2022 C reactive protein [Mass/volume] in Serum or Plasma C-REACTIVE PROTEIN (CRP) Lab Routine Megaloblastic anemia due to vitamin B12 deficiency Elevated sed rate High total serum IgM Chronic fatigue and malaise Expected: 08/28/2022 (Approximate), Expires: 10/28/2022 [facility] Work Phone: Comment on above: Expected: 08/28/2022 (Approximate), Expi res: 10/28/2022 Start: 08-28-2022 End: 07-26-2023 Calcium.ionized [Moles/volume] in Blood CALCIUM IONIZED BLOOD Lab Routine Megaloblastic anemia due to vitamin B12 deficiency Elevated sed rate High total serum IgM Chronic fatigue and malaise Expected: 08/28/2022 (Approximate), Expires: 07/26/2023 [facility] Work Phone: Comment on above: Expected: 08/28/2022 (Approximate), Expi res: 07/26/2023 Start: 08-28-2022 End: 07-26-2023 CBC W Auto Differential panel - Blood CBC + DIFF Lab Routine Megaloblastic anemia due to vitamin B12 deficiency Elevated sed rate High total serum IgM Chronic fatigue and malaise Expected: 08/28/2022 (Approximate), Expires: 07/26/2023 [facility] Work Phone: Comment on above: Expected: 08/28/2022 (Approximate), Expi res: 07/26/2023 Start: 08-28-2022 End: 10-28-2022 Cobalamin (Vitamin B12) [Mass/volume] in Serum or Plasma VITAMIN B12 BLOOD Lab Routine Megaloblastic anemia due to vitamin B12 deficiency Elevated sed rate High total serum IgM Chronic fatigue and malaise Expected: 08/28/2022 (Approximate), Expires: 10/28/2022 [facility] Work Phone: Comment on above: Expected: 08/28/2022 (Approximate), Expi res: 10/28/2022 Start: 08-28-2022 End: 07-26-2023 Comprehensive metabolic 2000 panel - Serum or Plasma COMP METABOLIC PANEL Lab Routine Megaloblastic anemia due to vitamin B12 deficiency Elevated sed rate High total serum IgM Chronic fatigue and malaise Expected: 08/28/2022 (Approximate), Expires: 07/26/2023 [facility] Work Phone: Comment on above: Expected: 08/28/2022 (Approximate), Expi res: 07/26/2023 Start: 08-28-2022 End: 10-28-2022 Erythrocyte sedimentation rate SED RATE WESTERGREN Lab Routine Megaloblastic anemia due to vitamin B12 deficiency Elevated sed rate High total serum IgM Chronic fatigue and malaise Expected: 08/28/2022 (Approximate), Expires: 10/28/2022 [facility] Work Phone: Comment on above: Expected: 08/28/2022 (Approximate), Expi res: 10/28/2022 Start: 08-28-2022 End: 10-28-2022 KAPPA/FARMER,FREE,SER KAPPA/FARMER,FREE,SER Lab Routine Megaloblastic anemia due to vitamin B12 deficiency Elevated sed rate High total serum IgM Chronic fatigue and malaise Expected: 08/28/2022 (Approximate), Expires: 10/28/2022 [facility] Work Phone: Comment on above: Expected: 08/28/2022 (Approximate), Expi res: 10/28/2022 Start: 08-28-2022 End: 07-26-2023 Lactate dehydrogenase [Enzymatic activity/volume] in Serum or Plasma LD LACTATE DEHYDRO Lab Routine Megaloblastic anemia due to vitamin B12 deficiency Elevated sed rate High total serum IgM Chronic fatigue and malaise Expected: 08/28/2022 (Approximate), Expires: 07/26/2023 [facility] Work Phone: Comment on above: Expected: 08/28/2022 (Approximate), Expi res: 07/26/2023 Start: 08-28-2022 End: 07-26-2023 MONOCLONAL PROTEIN, SERUM (BLOOD) MONOCLONAL PROTEIN, SERUM (BLOOD) Lab Routine Megaloblastic anemia due to vitamin B12 deficiency Elevated sed rate High total serum IgM Chronic fatigue and malaise Expected: 08/28/2022 (Approximate), Expires: 07/26/2023 [facility] Work Phone: Comment on above: Expected: 08/28/2022 (Approximate), Expi res: 07/26/2023 Start: 08-28-2022 End: 07-26-2023 Phosphate [Mass/volume] in Serum or Plasma PHOSPHORUS INORGANIC Lab Routine Megaloblastic anemia due to vitamin B12 deficiency Elevated sed rate High total serum IgM Chronic fatigue and malaise Expected: 08/28/2022 (Approximate), Expires: 07/26/2023 [facility] Work Phone: Comment on above: Expected: 08/28/2022 (Approximate), Expi res: 07/26/2023 Start: 08-28-2022 End: 07-26-2023 PROTEIN ELECTROPHORESIS SERUM W/INTERP PROTEIN ELECTROPHORESIS SERUM W/INTERP Lab Routine Megaloblastic anemia due to vitamin B12 deficiency Elevated sed rate High total serum IgM Chronic fatigue and malaise Expected: 08/28/2022 (Approximate), Expires: 07/26/2023 [facility] Work Phone: Comment on above: Expected: 08/28/2022 (Approximate), Expi res: 07/26/2023 Start: 08-28-2022 End: 07-26-2023 Urate [Mass/volume] in Serum or Plasma URIC ACID BLOOD Lab Routine Megaloblastic anemia due to vitamin B12 deficiency Elevated sed rate High total serum IgM Chronic fatigue and malaise Expected: 08/28/2022 (Approximate), Expires: 07/26/2023 [facility] Work Phone: Comment on above: Expected: 08/28/2022 (Approximate), Expi res: 07/26/2023 Start: 07-15-2022 End: 05-20-2023 [id number] [Mass/volume] in Serum or Plasma B2 MICROGLOBULIN B Lab Routine High total serum IgM Expected: 07/15/2022 (Approximate), Expires: 05/20/2023 [facility] Work Phone: Comment on above: Expected: 07/15/2022 (Approximate), Expi res: 05/20/2023 Start: 07-15-2022 End: 05-20-2023 Calcium.ionized [Moles/volume] in Blood CALCIUM IONIZED BLOOD Lab Routine High total serum IgM Expected: 07/15/2022 (Approximate), Expires: 05/20/2023 [facility] Work Phone: Comment on above: Expected: 07/15/2022 (Approximate), Expi res: 05/20/2023 Start: 07-15-2022 End: 05-20-2023 CBC W Auto Differential panel - Blood CBC + DIFF Lab Routine High total serum IgM Expected: 07/15/2022 (Approximate), Expires: 05/20/2023 [facility] Work Phone: Comment on above: Expected: 07/15/2022 (Approximate), Expi res: 05/20/2023 Start: 07-15-2022 End: 05-20-2023 Comprehensive metabolic 2000 panel - Serum or Plasma COMP METABOLIC PANEL Lab Routine High total serum IgM Expected: 07/15/2022 (Approximate), Expires: 05/20/2023 [facility] Work Phone: Comment on above: Expected: 07/15/2022 (Approximate), Expi res: 05/20/2023 Start: 07-15-2022 End: 09-14-2022 KAPPA/FARMER,FREE,SER KAPPA/FARMER,FREE,SER Lab Routine High total serum IgM Expected: 07/15/2022 (Approximate), Expires: 09/14/2022 [facility] Work Phone: Comment on above: Expected: 07/15/2022 (Approximate), Expi res: 09/14/2022 Start: 07-15-2022 End: 05-20-2023 Lactate dehydrogenase [Enzymatic activity/volume] in Serum or Plasma LD LACTATE DEHYDRO Lab Routine High total serum IgM Expected: 07/15/2022 (Approximate), Expires: 05/20/2023 [facility] Work Phone: Comment on above: Expected: 07/15/2022 (Approximate), Expi res: 05/20/2023 Start: 07-15-2022 End: 05-20-2023 MONOCLONAL PROTEIN, SERUM (BLOOD) MONOCLONAL PROTEIN, SERUM (BLOOD) Lab Routine High total serum IgM Expected: 07/15/2022 (Approximate), Expires: 05/20/2023 [facility] Work Phone: Comment on above: Expected: 07/15/2022 (Approximate), Expi res: 05/20/2023 Start: 07-15-2022 End: 05-20-2023 Phosphate [Mass/volume] in Serum or Plasma PHOSPHORUS INORGANIC Lab Routine High total serum IgM Expected: 07/15/2022 (Approximate), Expires: 05/20/2023 [facility] Work Phone: Comment on above: Expected: 07/15/2022 (Approximate), Expi res: 05/20/2023 Start: 07-15-2022 End: 05-20-2023 PROTEIN ELECTROPHORESIS SERUM W/INTERP PROTEIN ELECTROPHORESIS SERUM W/INTERP Lab Routine High total serum IgM Expected: 07/15/2022 (Approximate), Expires: 05/20/2023 [facility] Work Phone: Comment on above: Expected: 07/15/2022 (Approximate), Expi res: 05/20/2023 Start: 07-15-2022 End: 05-20-2023 Urate [Mass/volume] in Serum or Plasma URIC ACID BLOOD Lab Routine High total serum IgM Expected: 07/15/2022 (Approximate), Expires: 05/20/2023 [facility] Work Phone: Comment on above: Expected: 07/15/2022 (Approximate), Expi res: 05/20/2023 Start: 06-05-2022 End: 03-05-2023 25-hydroxyvitamin D3 [Mass/volume] in Serum or Plasma VITAMIN D 25 HYDROXY Lab Routine Vitamin D deficiency Expected: 06/05/2022 (Approximate), Expires: 03/05/2023 [facility] Work Phone: Comment on above: Expected: 06/05/2022 (Approximate), Expi res: 03/05/2023 Start: 06-05-2022 End: 03-05-2023 C reactive protein [Mass/volume] in Serum or Plasma C-REACTIVE PROTEIN (CRP) Lab Routine Elevated sed rate Elevated C-reactive protein (CRP) Expected: 06/05/2022 (Approximate), Expires: 03/05/2023 [facility] Work Phone: Comment on above: Expected: 06/05/2022 (Approximate), Expi res: 03/05/2023 Start: 06-05-2022 End: 03-05-2023 Cobalamin (Vitamin B12) [Mass/volume] in Serum or Plasma VITAMIN B12 BLOOD Lab Routine Vitamin B12 deficiency Expected: 06/05/2022 (Approximate), Expires: 03/05/2023 [facility] Work Phone: Comment on above: Expected: 06/05/2022 (Approximate), Expi res: 03/05/2023 Start: 06-05-2022 End: 03-05-2023 Erythrocyte sedimentation rate SED RATE WESTERGREN Lab Routine Elevated sed rate Elevated C-reactive protein (CRP) Expected: 06/05/2022 (Approximate), Expires: 03/05/2023 [facility] Work Phone: Comment on above: Expected: 06/05/2022 (Approximate), Expi res: 03/05/2023 Start: 05-06-2022 End: 03-18-2023 [id number] [Mass/volume] in Serum or Plasma B2 MICROGLOBULIN B Lab Routine Megaloblastic anemia due to vitamin B12 deficiency High total serum IgM Expected: 05/06/2022 (Approximate), Expires: 03/18/2023 [facility] Work Phone: Comment on above: Expected: 05/06/2022 (Approximate), Expi res: 03/18/2023 Start: 05-06-2022 End: 03-18-2023 Calcium.ionized [Moles/volume] in Blood CALCIUM IONIZED BLOOD Lab Routine Megaloblastic anemia due to vitamin B12 deficiency High total serum IgM Expected: 05/06/2022 (Approximate), Expires: 03/18/2023 [facility] Work Phone: Comment on above: Expected: 05/06/2022 (Approximate), Expi res: 03/18/2023 Start: 05-06-2022 End: 03-18-2023 CBC W Auto Differential panel - Blood CBC + DIFF Lab Routine Megaloblastic anemia due to vitamin B12 deficiency High total serum IgM Expected: 05/06/2022 (Approximate), Expires: 03/18/2023 [facility] Work Phone: Comment on above: Expected: 05/06/2022 (Approximate), Expi res: 03/18/2023 Start: 05-06-2022 End: 03-18-2023 Comprehensive metabolic 2000 panel - Serum or Plasma COMP METABOLIC PANEL Lab Routine Megaloblastic anemia due to vitamin B12 deficiency High total serum IgM Expected: 05/06/2022 (Approximate), Expires: 03/18/2023 [facility] Work Phone: Comment on above: Expected: 05/06/2022 (Approximate), Expi res: 03/18/2023 Start: 05-06-2022 End: 03-18-2023 Ferritin [Mass/volume] in Serum or Plasma FERRITIN BLD Lab Routine Megaloblastic anemia due to vitamin B12 deficiency High total serum IgM Expected: 05/06/2022 (Approximate), Expires: 03/18/2023 [facility] Work Phone: Comment on above: Expected: 05/06/2022 (Approximate), Expi res: 03/18/2023 Start: 05-06-2022 End: 03-18-2023 Iron and Iron binding capacity panel - Serum or Plasma IRON + TIBC Lab Routine Megaloblastic anemia due to vitamin B12 deficiency High total serum IgM Expected: 05/06/2022 (Approximate), Expires: 03/18/2023 [facility] Work Phone: Comment on above: Expected: 05/06/2022 (Approximate), Expi res: 03/18/2023 Start: 05-06-2022 End: 03-18-2023 Lactate dehydrogenase [Enzymatic activity/volume] in Serum or Plasma LD LACTATE DEHYDRO Lab Routine Megaloblastic anemia due to vitamin B12 deficiency High total serum IgM Expected: 05/06/2022 (Approximate), Expires: 03/18/2023 [facility] Work Phone: Comment on above: Expected: 05/06/2022 (Approximate), Expi res: 03/18/2023 Start: 05-06-2022 End: 03-18-2023 MONOCLONAL PROTEIN, SERUM (BLOOD) MONOCLONAL PROTEIN, SERUM (BLOOD) Lab Routine Megaloblastic anemia due to vitamin B12 deficiency High total serum IgM Expected: 05/06/2022 (Approximate), Expires: 03/18/2023 [facility] Work Phone: Comment on above: Expected: 05/06/2022 (Approximate), Expi res: 03/18/2023 Start: 05-06-2022 End: 03-18-2023 Phosphate [Mass/volume] in Serum or Plasma PHOSPHORUS INORGANIC Lab Routine Megaloblastic anemia due to vitamin B12 deficiency High total serum IgM Expected: 05/06/2022 (Approximate), Expires: 03/18/2023 [facility] Work Phone: Comment on above: Expected: 05/06/2022 (Approximate), Expi res: 03/18/2023 Start: 05-06-2022 End: 03-18-2023 PROTEIN ELECTROPHORESIS SERUM W/INTERP PROTEIN ELECTROPHORESIS SERUM W/INTERP Lab Routine Megaloblastic anemia due to vitamin B12 deficiency High total serum IgM Expected: 05/06/2022 (Approximate), Expires: 03/18/2023 [facility] Work Phone: Comment on above: Expected: 05/06/2022 (Approximate), Expi res: 03/18/2023 Start: 05-06-2022 End: 03-18-2023 Urate [Mass/volume] in Serum or Plasma URIC ACID BLOOD Lab Routine Megaloblastic anemia due to vitamin B12 deficiency High total serum IgM Expected: 05/06/2022 (Approximate), Expires: 03/18/2023 [facility] Work Phone: Comment on above: Expected: 05/06/2022 (Approximate), Expi res: 03/18/2023 Start: 04-05-2022 COVID-19 VACCINE (5 - Pfizer risk series) COVID-19 VACCINE (5 - Pfizer risk series) [facility] Start: 03-09-2022 End: 05-09-2022 Hemoglobin A1c in Blood HGB A1C Lab Routine Elevated glucose Expected: 03/09/2022, Expires: 05/09/2022 [facility] Work Phone: Comment on above: Expected: 03/09/2022, Expires: 2 Start: 02-24-2022 End: 04-26-2022 BARTONELLA AB PANEL BARTONELLA AB PANEL Lab Routine Swelling of lymph nodes Expected: 02/24/2022, Expires: 04/26/2022 [facility] Work Phone: Comment on above: Expected: 02/24/2022, Expires: 2 Start: 02-24-2022 End: 04-26-2022 BRUCELLA AB TOTAL BRUCELLA AB TOTAL Lab Routine Swelling of lymph nodes Expected: 02/24/2022, Expires: 04/26/2022 [facility] Work Phone: Comment on above: Expected: 02/24/2022, Expires: 2 Start: 02-24-2022 End: 04-26-2022 Cryptococcus sp Ag [Presence] in Unspecified specimen by Latex agglutination CRYPTOCOCCUS AG DET Microbiology Routine Swelling of lymph nodes Expected: 02/24/2022, Expires: 04/26/2022 [facility] Work Phone: Comment on above: Expected: 02/24/2022, Expires: 2 Start: 02-24-2022 End: 04-26-2022 HISTOPLASMA AG URINE HISTOPLASMA AG URINE Lab Routine Swelling of lymph nodes Expected: 02/24/2022, Expires: 04/26/2022 [facility] Work Phone: Comment on above: Expected: 02/24/2022, Expires: 2 Start: 02-24-2022 End: 04-26-2022 HIV 1 RNA [#/volume] (viral load) in Serum or Plasma by YESSI with probe detection HIV RNA VIRAL LOAD Lab Routine Swelling of lymph nodes Expected: 02/24/2022, Expires: 04/26/2022 [facility] Work Phone: Comment on above: Expected: 02/24/2022, Expires: 2 Start: 02-24-2022 End: 04-26-2022 SYPHILIS TOTAL W/REFLEX SYPHILIS TOTAL W/REFLEX Lab Routine Swelling of lymph nodes Expected: 02/24/2022, Expires: 04/26/2022 [facility] Work Phone: Comment on above: Expected: 02/24/2022, Expires: 2 Start: 01-22-2022 Influenza vaccination [facility] Start: 08-24-2021 COVID-19 VACCINE (4 - Booster for Pfizer series) COVID-19 VACCINE (4 - Booster for Pfizer series) [facility] Start: 01-22-2021 Influenza vaccination Flu vaccine (Season Ended) [facility] Work Phone: Start: 2020 Lipid panel Lipid screen [facility] Work Phone: Start: 2020 Mammography [facility] Start: 2020 Screening for malignant neoplasm of breast [facility] Start: 2010 HPV TESTING HPV TESTING [facility] Start: 2010 Screening for malignant neoplasm of cervix [facility] Start: 2002 DTaP/Tdap/Td Vaccines (1 - Tdap) DTaP/Tdap/Td Vaccines (1 - Tdap) [facility] Start: 2001 PAP TESTING PAP TESTING [facility] Start: 2001 Screening for malignant neoplasm of cervix [facility] Start: 10-05-1999 DTaP,Tdap and Td Vaccines (1 - Tdap) DTaP,Tdap and Td Vaccines (1 - Tdap) [facility] Start: 10-05-1999 DTaP/Tdap/Td vaccine (1 - Tdap) DTaP/Tdap/Td vaccine (1 - Tdap) [facility] Phone: Start: 10-05-1999 Hepatitis B Vaccine (1 of 3 - 19+ 3-dose series) Hepatitis B Vaccine (1 of 3 - 19+ 3-dose series) [facility] Start: 10-05-1999 SHINGRIX VACCINE (1 of 2) SHINGRIX VACCINE (1 of 2) [facility] Start: 10-05-1999 Urine microalbumin profile [facility] Start: 10-05-1999 Zoster Vaccines (1 of 2) Zoster Vaccines (1 of 2) [facility] Start: 1998 Adult BMI Screening Adult BMI Screening [facility] Start: 1998 Anxiety Screening Anxiety Screening [facility] Start: 1998 Hepatitis C screening Hepatitis C Screening [facility] Start: 1998 HIV SCREENING HIV SCREENING [facility] Start: 1998 HIV screening HIV Screening [facility] Start: 10-05-1995 HIV screening HIV screen [facility] Phone: Start: 1992 COVID-19 Vaccine (1) COVID-19 Vaccine (1) [facility] Phone: Start: 1992 Depression Screening Depression Screening [facility] Start: 1992 Tobacco Screening Tobacco Screening [facility] Start: 10-05-1991 Screening for malignant neoplasm of cervix Cervical Cancer Screening [facility] Start: 1986 PNEUMOCOCCAL (1 - PCV) PNEUMOCOCCAL (1 - PCV) [facility] Start: 1986 Pneumococcal vaccination [facility] Start: 1986 Pneumococcal Vaccine: Pediatrics [...] (1 of 2 - 2-dose childhood series) [facility] Phone: Start: 1980 HEPATITIS B (1 of 3 - 3-dose series) HEPATITIS B (1 of 3 - 3-dose series) [facility] Start: 1980 Hepatitis B Vaccine (1 of 3 - 3-dose series) Hepatitis B Vaccine (1 of 3 - 3-dose series) [facility] Start: 1980 Hepatitis B Vaccines (1 of 3 - 3-dose series) Hepatitis B Vaccines (1 of 3 - 3-dose series) [facility] Start: 1980 Hepatitis C screening Hepatitis C screen [facility] Phone: Start: 1980 HIV screening HIV Screening [facility] Start: [address] Lipid Panel [facility] Start: 1980 Screening for osteoporosis Bone Density Scan [facility] Start: 1980 Yearly Adult Physical Yearly Adult Physical [facility] Cardiovascular funct ion eval w/tilt table w/mntr TILT TABLE EVALUATION Cardiology Routine POTS (postural orthostatic tachycardia syndrome) Ordered: 03/09/2022 [facility] Work Phone: Comment on above: Ordered: 03/09/2022 CBC W Auto Different ial panel - Blood CBC and differential Lab Routine Menorrhagia with regular cycle Ordered: 03/23/2024 [facility] [employer] Work Phone: Comment on above: Ordered: 03/23/2024 CT Abdomen W contrast IV [facility]: 03-05-2024 DXA-AXIAL SKELETON DXA-AXIAL SKELETON Radiology Routine Steroid-induced osteoporosis 1 Occurrences starting 02/04/2023 until 03/05/2024 [facility] Work Phone: Comment on above: 1 Occurrences starting 02/04/2023 until 03/05/2024 End: 03-05-2024 DXA-FOREARM SKELETON DXA-FOREARM SKELETON Radiology Routine Steroid-induced osteoporosis 1 Occurrences starting 02/04/2023 until 03/05/2024 [facility] Work Phone: Comment on above: 1 Occurrences starting 02/04/2023 until 03/05/2024 ECG 12 Lead ECG 12 Lead ECG Routine Irregular heart rate 06/09/2023 8:[address] [facility] Work Phone: hCG, quantitative, hCG, quantitative, Lab Routine Menorrhagia with regular cycle Ordered: 03/23/2024 [employer] Comment on above: Ordered: 03/23/2024 Hemoglobin A1c/Hemoglobin.total in Blood Hemoglobin A1c Lab Routine Menorrhagia with regular cycle Ordered: 03/23/2024 [employer] Comment on above: Ordered: 03/23/2024 End: 03-09-2023 HOME SLEEP APNEA TEST (HSAT) HOME SLEEP APNEA TEST (HSAT) Procedures Routine Somnolence, daytime Snoring 1 Occurrences starting 03/09/2022 until 03/09/2023 [facility] Work Phone: Comment on above: 1 Occurrences starting 03/09/2022 until 03/09/2023 Oxygen therapy [[facility] Data Set] Initiate Oxygen Therapy Protocol Respiratory Care Routine Daily until discontinued starting 10/07/2020 [facility] Work Phone: Comment on above: Daily until discontinued starting 2020 Patient Education Know your Meds Jorge Luis Non Diagnostic Block [facility] Work Phone: Patient referral [facility] Work Phone: End: 03-04-2023 Polysomnogram POLYSOMNOGRAM (PSG) Procedures Routine Somnolence, daytime Snoring 1 Occurrences starting 03/04/2022 until 03/04/2023 [facility] Work Phone: Comment on above: 1 Occurrences starting 03/04/2022 until 03/04/2023 Prothrombin time (PT ) in Blood by Coagulation assay Protime-INR Lab Routine Menorrhagia with regular cycle Ordered: 03/23/[address] [facility] Comment on above: Ordered: 03/23/2024 Thyrotropin [Units/v olume] in Serum or Plasma TSH Lab Routine Menorrhagia with regular cycle Ordered: 03/23/[address] [facility] Comment on above: Ordered: 03/23/2024 Thyroxine (T4) free [Mass/volume] in Serum or Plasma T4, free Lab Routine Menorrhagia with regular cycle Ordered: 03/23/[address] [facility] Comment on above: Ordered: 03/23/2024 [facility] Immunizations Immunization Date Immunization Notes Care Provider Fa cility 02-23-2023 COVID-19 vaccine, ag e 12+ yr, 2022- season (PFIZER-BIONTECH) Lynne Ni MD Work Phone: [facility] Payers Date Payer Category Payer Medicaid [facility] [id number] 2024 Self-pay [id number] 2017 Private Health Insurance [facility] MEDICAID [id number] 2017 Unknown [employer] OUR [id number] 2017-Present [address] [place] [id number] 2009 Medicaid [employer] [id number] 2009-Present [phone] [address] [place] [id number] Medicaid [id number] 2009 Medicaid [id number] 1980 Unknown [id number] 2.16.840.1.237093.3.579.2. 185 1980 Unknown [id number] 2.16.840.1.898688.3.579.2. 175 1980 Unknown [id number] 2.16.840.1.374018.3.579.2. 593 1980 Unknown [id number] 2.16.840.1.346178.3.579.2. 59 1980 Unknown [id number] 2.16.840.1.273662.3.579.2. 59 1980 Unknown [id number] 2.16.840.1.065657.3.579.2. 59 1980 Unknown [id number] 2.16.840.1.042082.3.579.2. 59 1980 Unknown [id number] 2.16.840.1.804175.3.579.2. 59 1980 Unknown [id number] 2.16.840.1.134926.3.579.2. 59 1980 Unknown [id number] 2.16.840.1.030267.3.579.2. 1980 Unknown [id number] 2.16.840.1.009407.3.579.2. 1980 Unknown [id number] 2.16.840.1.555420.3.579.2. 1980 Unknown [id number] 2.16.840.1.664636.3.579.2. 1243 1980 Unknown [id number] 2.16.840.1.150792.3.579.2. 1243 1980 Unknown [id number] 2.16.840.1.844159.3.579.2. 1243 1980 Unknown [id number] 2.16.840.1.736461.3.579.2. 1258 1980 Unknown [id number] 2.16.840.1.252201.3.579.2. 1258 1980 Unknown [id number] 2.16.840.1.323642.3.579.2. 1258 1980 Unknown [id number] 2.16.840.1.805438.3.579.2. 1258 1980 Unknown [id number] 2.16.840.1.411489.3.579.2. 1258 1980 Unknown [id number] 2.16.840.1.839250.3.579.2. 1258 1980 Unknown [id number] 2.16.840.1.606483.3.579.2. 1258 1980 Unknown [id number] 2.16.840.1.579129.3.579.2. 1258 1980 Unknown [id number] 2.16.840.1.509996.3.579.2. 1258 1980 Unknown [id number] 2.16.840.1.905218.3.579.2. 1258 1980 Unknown [id number] 2.840.1.718830.3.579.2. 1258 1980 Unknown [id number] 2.16.840.1.066755.3.579.2. 1258 1980 Unknown [id number] 2.16.840.1.563373.3.579.2. 1258 1980 Unknown [id number] 2.16.840.1.839289.3.579.2. 1258 1980 Unknown [id number] 2.16840.1.921118.3.579.2. 1258 1980 Unknown [id number] 2.16.840.1.414799.3.579.2. 1258 1980 Unknown [id number] 2.16.840.1.829857.3.579.2. 1258 1980 Unknown [id number] 2.16.840.1.023029.3.579.2. 1258 1980 Unknown [id number] 2.16.840.1.968408.3.579.2. 1258 1959 Unknown [id number] 1959 Unknown [id number] Unknown [id number] ..840.1.319776.3.579.2. 531 Social History Date Type Detail Facility Start: 10-07-2020 End: 03-09-2022 Tobacco smoking status HIIS Current every day smoker [facility] Start: 10-07-2020 End: 03-09-2022 Tobacco use and exposure Never used [employer] Start: 10-07-2020 End: 04-02-2024 Alcohol intake Lifetime non-drinker (finding) [facility] Phone: Start: 10-07-2020 History SDOH Alcohol Frequency [address] [facility] Phone: Start: 1980 Sex Assigned At Not on file [facility] [place] Phone: Start: 02-22-2022 End: 07-13-2023 Exposure to SARS-CoV-2 (event) Not sure [employer] Start: 05-24-1995 History of tobacco use Cigarette Smo ker [facility] Start: 05-31-2014 End: 09-24-2022 Cigarettes smoked current (pack per day) - Reported 1 [facility] Start: 10-24-2021 End: 03-18-2024 Alcohol intake Current non-drinker of alcohol (finding) [facility] Start: 10-14-2021 End: 10-24-2021 Exposure to SARS-CoV-2 (event) Unable to assess [facility] Start: 09-24-2022 End: 10-22-2022 Sex Assigned At [facility] Adult Depression Screening Assessment 1 [facility] Start: 10-19-2022 Tobacco Comment Current smoker , everyday, 11-20 cigarettes/day [facility] Start: 05-31-2023 Alcohol Comment Caffeine intak e : > 4 cups per day [facility] Start: 08-19-2016 End: 12-16-2023 Tobacco smoking status NHIS Smoker (finding) [facility] Start: 1980 Sex Assigned At Female [facility] Start: 07-02-2016 Sex Female (finding) [facility] Goals Date Patient Goal Desired Activity /State Clinical Notes 05-31-2014 to 04-10-2024 Telephone Encounter - Sherrie Cortes - 04/10/2024 2:12 PM ESTTelephone Encounter - Shantel Arce RPh - 04/10/2024 2:07 PM ESTTelephone Encounter - Enma Hamm RN - 04/10/2024 1:02 PM EST Note Date & Type Note Facility 04-10-2024 Miscellaneous Notes Patient requested this appointment be rescheduled for the end of April. She has been scheduled for 05/19, she is all set. Thank you! Sherrie Cortes SUBQ products (eg, 20% [Cuvitru, Hizentra, Xembify]) or IM products (eg, 16% [GamaSTAN]) intravenously. It would depend upon insurance coverage and would be done as a retail prescription at designated insurance specialty pharmacy. Elpidio Arce, PharmD, BCOP Discussed with Mason. He would prefer pt begin the IVIG, as recommended. We will be able to monitor pt and the efficacy of dosage and results on given dosages, when completed here. Pt is in agreement. She wants to delay start, daughter having her first child, and I don't want to be sick. Discussed she will run the risk of continued infections with delay, and pt is fine with that . Blanquita: please call to r/s 04/14 appt per pt request Enma Hamm RN Called to discuss with pt. She was researching online and found SCIG a weekly subq injection to give herself that is less dose, and has less side effects. Pharmacy/Mason: please advise Enma Hamm RN Really sorry - I don't recall the home infusion of IVIG - I think it is safer to give it to her in-house as IV so we can monitor infusion reactions. Sorry if I created a misunderstanding. Patient calls stating she still has not heard back about SCIg infusions at home(sp?). Patient states at her last phone visit, she mentioned this to Dr CUEVAS vs. IVIG infusions here and he stated he was going to look into this and have someone call patient back. Patient calls today stating she still has not heard and wants to know what is going on. Patient is scheduled for IVIG infusion here on Wednesday (she was unaware of this appt) but she doesn't want to sit here all day if she can get these infusions at home. Patient states her insurance covers her Benlysta at home and this drug is listed as formulary so she's hopeful they will cover this as well. MASON: I spoke w/ pharmacy and they have no record of this - not sure if Triage was involved? Please advise. Sherrie Cortes documented in this encounter [facility] 04-10-2024 Telephone encounter Note Patient requested this appointment be rescheduled for the end of April. She has been scheduled for 05/19, she is all set. Thank you! Sherrie Cortes [facility] 04-10-2024 Telephone encounter Note SUBQ products (eg, 20% [Cuvitru, Hizentra, Xembify]) or IM products (eg, 16% [GamaSTAN]) intravenously. It would depend upon insurance coverage and would be done as a retail prescription at designated insurance specialty pharmacy. Elpidio Arce, PharmD, BCOP [facility] Work Phone: 04-10-2024 Telephone encounter Note Discussed with Mason. He would prefer pt begin the IVIG, as recommended. We will be able to monitor pt and the efficacy of dosage and results on given dosages, when completed here. Pt is in agreement. She wants to delay start, daughter having her first child, and I don't want to be sick. Discussed she will run the risk of continued infections with delay, and pt is fine with that . Blanquita: please call to r/s 04/14 appt per pt request Enma Hamm RN [facility] 04-10-2024 Telephone encounter Note Called to discuss with pt. She was researching online and found SCIG a weekly subq injection to give herself that is less dose, and has less side effects. Pharmacy/Mason: please advise Enma Hamm RN [facility] 04-10-2024 Telephone encounter Note Really sorry - I don't recall the home infusion of IVIG - I think it is safer to give it to her in-house as IV so we can monitor infusion reactions. Sorry if I created a misunderstanding. [facility] 04-10-2024 Telephone encounter Note Patient calls stating she still has not heard back about SCIg infusions at home(sp?). Patient states at her last phone visit, she mentioned this to Dr CUEVAS vs. IVIG infusions here and he stated he was going to look into this and have someone call patient back. Patient calls today stating she still has not heard and wants to know what is going on. Patient is scheduled for IVIG infusion here on Wednesday (she was unaware of this appt) but she doesn't want to sit here all day if she can get these infusions at home. Patient states her insurance covers her Benlysta at home and this drug is listed as formulary so she's hopeful they will cover this as well. MASON: I spoke w/ pharmacy and they have no record of this - not sure if Triage was involved? Please advise. Sherrie Cortes [facility] 04-07-2024 Note [facility] 04-07-2024 History of Present illness Narrative Patient's name appears on the [facility] First Time Treatment List for a non-oncology treatment. No psychosocial assessment is indicated. BILL Rosenberg Goals of Care Advance Directives are not on file SIGNATURE: JUSTICE Rosenberg PATIENT NAME: Jones Haley DATE: April 07, 2024 TIME: 9:31 AM PAGER/CONTACT #: documented in this encounter [facility] 04-06-2024 Evaluation + Plan note Associated Problem(s): 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 We will get lower extremity PVR with cold immersion test. I counseled her on the diagnosis and identifying and avoiding provoking factors. I also counseled her that managing her SLE and autoimmune connective tissue disorders is balderrama for managing her Raynaud's. All her questions were answered. [facility] 04-06-2024 Miscellaneous Notes Associated Problem(s): 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 We will get lower extremity PVR with cold immersion test. I counseled her on the diagnosis and identifying and avoiding provoking factors. I also counseled her that managing her SLE and autoimmune connective tissue disorders is balderrama for managing her Raynaud's. All her questions were answered. documented in this encounter [facility] 04-06-2024 History of Present illness Narrative Images from the original note were not included. To: No primary care provider on file. HPI: Jones Haley is a 43 y.o. female with Multiple medical problems including connective tissue disorders SLE rheumatoid and active smoker. She comes in with cold feeling in her extremities especially the lower extremities and numbness and tingling. They get really worse in cold weather. She does not have tissue loss or wounds. No rest pain. She has been on steroids for her SLE.. Review of Systems: Review of Systems Constitutional: Negative. HENT: Negative. Respiratory: Negative. Cardiovascular: Negative. Gastrointestinal: Negative. Endocrine: Negative. Genitourinary: Negative. Musculoskeletal: Negative. Skin: Negative. Neurological: Negative. Hematological: Negative. Medications: Current Outpatient Medications on File Prior to Visit Medication Sig Dispense Refill ALPRAZolam (XANAX) 0.25 mg tablet Take 1 tablet (0.25 mg total) by mouth nightly as needed for anxiety. belimumab 200 mg/mL auto-injector Inject 200 mg under the skin once a week. clotrimazole (MYCELEX) 10 mg christel Dissolve 1 Christel in the mouth in the morning and 1 Christel at noon and 1 Christel in the evening and 1 Christel before bedtime. cyanocobalamin (VITAMIN B-12) 1,000 mcg/mL injection Inject 1 mL (1,000 mcg total) under the skin every 30 (thirty) days. diclofenac sodium (VOLTAREN ARTHRITIS PAIN) 1 % gel Apply 2 g topically 4 (four) times a day as needed. ergocalciferol (DRISDOL) 1,250 mcg (50,000 unit) capsule Take 1 capsule (50,000 Units total) by mouth once a week. IMURAN 50 mg tablet Take 1 tablet (50 mg total) by mouth in the morning. itraconazole (SPORANOX) 100 mg capsule Take 1 capsule (100 mg total) by mouth in the morning. metoprolol tartrate (LOPRESSOR) 50 mg tablet Take 2 tablets (100 mg total) by mouth in the morning and 2 tablets (100 mg total) before bedtime. pregabalin (LYRICA) 75 mg capsule Take 1 capsule (75 mg total) by mouth as needed. tacrolimus (PROTOPIC) 0.1 % ointment Apply 1 Application topically as needed. thiamine HCl (VITAMIN B-1) 100 mg tablet Take 1 tablet (100 mg total) by mouth in the morning. tretinoin (RETIN-A) 0.05 % cream Apply topically nightly. acetaminophen (TYLENOL) 325 mg tablet Take 1 tablet (325 mg total) by mouth every 6 (six) hours as needed. aspirin 81 mg chewable tablet Chew 1 tablet (81 mg total) and swallow in the morning. baclofen 5 mg tablet Take 5 mg by mouth as needed. famotidine (PEPCID) 20 mg tablet Take 1 tablet (20 mg total) by mouth 2 (two) times a day as needed. fluticasone propionate (FLONASE) 50 mcg/actuation nasal spray Administer 2 sprays into each nostril as needed. folic acid (FOLVITE) 1 mg tablet Take 1 tablet (1 mg total) by mouth in the morning. hydroxychloroquine 400 mg tablet Take 400 mg by mouth in the morning. ibuprofen (ADVIL,MOTRIN) 200 mg tablet Take 1 tablet (200 mg total) by mouth every 8 (eight) hours as needed. predniSONE (STERAPRED DS) 10 mg tablet pack Take 1 tablet (10 mg total) by mouth in the morning. triamcinolone acetonide (KENALOG) 0.025 % lotion Apply 1 Application topically as needed. No current facility-administered medications on file prior to visit. Past Medical History: No past medical history on file. Past Surgical History: No past surgical history on file. Social and Family History: Social History Socioeconomic History Marital status: Unknown Spouse name: Not on file Number of children: Not on file Years of education: Not on file Highest education level: Not on file Occupational History Not on file Tobacco Use Smoking status: Not on file Smokeless tobacco: Not on file Substance and Sexual Activity Alcohol use: Not on file Drug use: Not on file Sexual activity: Not on file Other Topics Concern Not on file Social History Narrative Not on file Social Drivers of Health Financial Resource Strain: Not on file Food Insecurity: No Food Insecurity (04/06/2024) Hunger Screening Food Insecurity - Worry: Never True Food Insecurity - Inability: Never True Transportation Needs: Not on file Physical Activity: Not on file Stress: Not on file Social Connections: Not on file Interpersonal Safety: Unknown (07/15/2023) [facility] from [facility] Safety & Environment Fear of Current or Ex-Partner: Not on file Emotionally Abused: Not on file Physically Abused: Not on file Sexually Abused: Not on file Physically or Sexually Abused: Not on file Housing Instability: Not on file No family history on file. Recent Labs: Recent and relative labs were reviewed and interpreted and contributed to the assessment and plan below. Vitals: BP 136/80 (BP Site: Right Arm, BP Postition: Sitting, BP CUFF SIZE: M (9-13 inches)) Pulse 86 Temp 36.1 C (97 F) (Temporal) SpO2 97% There is no height or weight on file to calculate BMI. Physical Exam: Physical Exam Constitutional: Appearance: Normal appearance. HENT: Head: Normocephalic and atraumatic. Mouth/Throat: Mouth: Mucous membranes are moist. Eyes: Extraocular Movements: Extraocular movements intact. Pupils: Pupils are equal, round, and reactive to light. Cardiovascular: Rate and Rhythm: Normal rate and regular rhythm. Pulmonary: Effort: Pulmonary effort is normal. Breath sounds: Normal breath sounds. Abdominal: General: Abdomen is flat. Bowel sounds are normal. Palpations: Abdomen is soft. Musculoskeletal: General: Normal range of motion. Cervical back: Normal range of motion. Skin: General: Skin is warm and dry. Neurological: General: No focal deficit present. Mental Status: She is alert and oriented to person, place, and time. Mental status is at baseline. Psychiatric: Mood and Affect: Mood normal. Behavior: Behavior normal. Thought Content: Thought content normal. Judgment: Judgment normal. Recent testing: Assessment and Plan: Problem List Rheumatoid arthritis ([facility]) Relevant Medications ibuprofen (ADVIL,MOTRIN) 200 mg tablet predniSONE (STERAPRED DS) 10 mg tablet pack Systemic lupus erythematosus ([facility]) - Primary Relevant Medications ibuprofen (ADVIL,MOTRIN) 200 mg tablet predniSONE (STERAPRED DS) 10 mg tablet pack Other Relevant Orders Vas art doppler lwr bilat mult lev/PVR Current smoker Overview Added secondary to documentation in Social History. Added secondary to documentation in Social History. 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 Current Assessment & Plan We will get lower extremity PVR with cold immersion test. I counseled her on the diagnosis and identifying and avoiding provoking factors. I also counseled her that managing her SLE and autoimmune connective tissue disorders is balderrama for managing her Raynaud's. All her questions were answered. Jones was seen today for poss raynauds. Diagnoses and all orders for this visit: Systemic lupus erythematosus ([facility]) - Vas art doppler lwr bilat mult lev/PVR; Future [facility] [place], [place] - Vas art doppler lwr bilat mult lev/PVR; Future Pain of lower extremity, unspecified laterality - [facility] - [place], [place] - Vas art doppler lwr bilat mult lev/PVR; Future Rheumatoid arthritis, involving unspecified site, unspecified whether rheumatoid factor present ([facility]) Current smoker 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 Judy Arciniega MD, ZIA, RPVI, FSVS, FACS [facility] This note was created with the assistance of a speech recognition program. While intending to generate a timely document that accurately reflects the content of the visit, no guarantee can be provided that every grammatical or spelling mistake has been or will be identified or corrected. Thank you for your understanding. documented in this encounter [facility] 04-06-2024 Instructions Judy Arciniega MD - 04/06/2024 9:40 AM EST Are You Ready To Kick The Habit? Free Tobacco Cessation Resources [facility] Services [facility] provide all employees with free tobacco cessation services that include: Counseling to understand nicotine addiction Education about medications that can help you successfully quit Assistance with developing a plan to quit Call to set up an individual appointment or find out when group classes will be held: [facility]: [phone] [facility]: [phone] [facility]: [phone] [facility]: [phone] Quit Smoking Action Plan and Resources [facility] offers an eight-week, online smoking cessation plan to all [facility] employees, regardless of whether [facility] [employer] is your medical insurance provider. Go to [email or web address].[email or web address] s and click the Health Risk Assessment and Resources link to get started. In the [employer] menu, click Action Plans instead of Health Risk Assessment to access the Quit Smoking Action Plan. Additional smoking cessation resources are also available to all [facility] employees on the [employer] web page at [email or web address]/[email or web address] [place] [facility] Cessation [facility] If [employer] is your medical insurance provider, there are more free resources available to you, including: No copays or deductibles on local tobacco cessation counseling services to help you quit Prescription assistance for tobacco cessation medications to help you quit For details about the tobacco cessation program available to [facility] members, go to www.Qufenqi.CSID (Search: Tobacco Cessation Program). [place] Tobacco Quit Line 6-249-OLPR-NOW ( ) is a toll-free, telephonic service that helps [place] residents quit smoking and using tobacco. It is staffed by experts who tailor a quit plan for you and provide you with advice. [place] Tobacco Quit Line 6-470-BDDQ-NOW ( ) is a toll-free, telephonic service that helps [place] residents quit smoking and using tobacco. It is staffed by experts who tailor a quit plan for you and provide you with advice. Two weeks of nicotine replacement therapy may be provided at no charge, if needed. Additional Resources These national organizations also offer free information and resources to help you quit tobacco: [place] [employer]--www.cancer.org/healthy/sta yawayfromtobacco [place] [employer]--www.heart.org (Search: Quit Smoking) Centers for Disease Control and Prevention--www.cdc.gov/tobacco [place] [employer]--www.lungusa.org documented in this encounter [facility] 04-03-2024 Telephone encounter Note Changed terbinafine to itraconazole at pt request. [facility] 04-03-2024 Miscellaneous Notes Changed terbinafine to itraconazole at pt request. documented in this encounter [facility] 04-02-2024 Telephone encounter Note Please Call patient if MyChart note not read to review results/released to My Chart if tests completed at [facility]: Mildly high normal wbc, glucose, one borderline inflammatory test- care per primary care provider. Low vitamin D maybe associated with fatigue/joint/muscle pain. Increase and stay on vitamin D script with food. Rest of labs stable. New script sent to pharmacy. Notify office if medication change is not tolerated. Recheck nonfasting labs in 3months, orders have been placed. Happy to further review and discuss at follow up visit. Thank you. 03/23/24 high wbc 12.89, glucose 152, esr 27, IGM 373;low vitamin D 19.9, IGG 476;normal rest of cbc, cmp, crp 0.3, vitamin b12-607, ferritin 33.3, folate 13;negative blood cultures, quantiferon tb; Patient's request for medication is as follows: Requested Prescriptions Signed Prescriptions Disp Refills ergocalciferol 50,000 unit capsule (VITAMIN D2, DRISDOL) 24 capsule 1 Sig: Take 1cap by mouth twice a week x 10weeks, then once a week with food. Authorizing Provider: LYNNE NI Prescription(s) as above. Please process accordingly. Lynne Ni MD [facility] 04-02-2024 Miscellaneous Notes Please Call patient if MyChart note not read to review results/released to My Chart if tests completed at [facility]: Mildly high normal wbc, glucose, one borderline inflammatory test- care per primary care provider. Low vitamin D maybe associated with fatigue/joint/muscle pain. Increase and stay on vitamin D script with food. Rest of labs stable. New script sent to pharmacy. Notify office if medication change is not tolerated. Recheck nonfasting labs in 3months, orders have been placed. Happy to further review and discuss at follow up visit. Thank you. 03/23/24 high wbc 12.89, glucose 152, esr 27, IGM 373;low vitamin D 19.9, IGG 476;normal rest of cbc, cmp, crp 0.3, vitamin b12-607, ferritin 33.3, folate 13;negative blood cultures, quantiferon tb; Patient's request for medication is as follows: Requested Prescriptions Signed Prescriptions Disp Refills ergocalciferol 50,000 unit capsule (VITAMIN D2, DRISDOL) 24 capsule 1 Sig: Take 1cap by mouth twice a week x 10weeks, then once a week with food. Authorizing Provider: LYNNE NI Prescription(s) as above. Please process accordingly. Lynne Ni MD documented in this encounter [facility] 04-02-2024 History of Present illness Narrative HPI: Historian of HPI: patient Jones Haley is a 43 y.o. female who presents today to the Urgent Care with the following complaints and denials which have been present for 3 week(s) pt states she thinks she might have thrush inside her mouth. Pt was placed on a mouth wash ATB which did not help at all. Pt states she still feels the sores and film in her mouth. Pt states the inside of her mouth is red, sore, and roof of the mouth is inflamed. C/O Denies Symptom Comments [] [x] Runny Nose [x] [] Difficulty Swallowing At times [x] [] Sore Throat Always has a sore throat, has really bad acid reflex [] [x] Cough [] [x] Ear Pain [] [x] Fever [] [x] Chills [] [x] Nasal Congestion [] [x] Myalgia [x] [] Sinus Pain Headache [] [x] Sinus Pressure Additional Comments: pt has taken nystatin and mouth wash ATB OTC medication without relief ROS: A complete system ROS was performed and negative aside from the pertinent positives noted in the HPI and PE. Physical Exam Constitutional: Appearance: Normal appearance. HENT: Mouth/Throat: Comments: Markedly thick coating of thrush is noted on the dorsal 2/3 of the tongue, and there is erythema of the roof of the mouth. Neurological: Mental Status: She is alert. Diagnoses and all orders for this visit: Oral thrush (Primary) - terbinafine (LamISIL) 250 MG tablet; Take 1 tablet (250 mg) by mouth Daily for 5 days Atient has been on nystatin several times in the past and it seems to be losing some of its effectiveness. Most of the azole antifungals cause a reaction with the hydroxychloroquine sulfate to prolong the QT interval and cause cardiac arrhythmia. I did find that terbinafine does not do so and a daily dose of this x3 was provided. She will follow-up with her family doctor for this as this will be an ongoing problem with her immunosuppressive therapy. documented in this encounter [facility] 04-01-2024 Instructions Jose Najera MD - 04/01/2024 4:28 PM EST Obtain body fluid culture from [facility]. B12 shot today and every 4 weeks. Continue Folic acid. Frequent infections plan IVIG for hypogammaglobulinemia Start when approved. RTC 3 months repeat labs same day. IVIG same day. documented in this encounter [facility] 03-31-2024 Note [facility] 03-31-2024 History of Present illness Narrative CMN RECEIVED BY [employer] VIA FAX, COMPLETED, AND PLACED IN PROVIDER MAILBOX FOR SIGNATURE Ashly Castillo Legal Billing Coordinator II 03/31/2024 [employer] SENDING CMN: JOSH SIGNED AND DATED CMN, FAXED TO DME & CONFIRMATION PAGE RECEIVED: 04/11/2024 documented in this encounter [facility] 03-30-2024 Telephone encounter Note Pt is scheduled and instructions were sent thru my chart. [facility] 03-30-2024 Miscellaneous Notes Pt is scheduled and instructions were sent thru my chart. Im for pt- saved time on 04/18 7:45 Also sent mychart msg. dm Images from the original note were not included. documented in this encounter [facility] 03-29-2024 Telephone encounter Note Im for pt- saved time on 04/18 7:45 Also sent mychart msg. dm [facility] 03-27-2024 Note [facility] 03-27-2024 History of Present illness Narrative Images from the original note were not included. NAME: Jones Haley CLINIC NO.: [id number] DATE OF SERVICE: March 27, 2024 (Marquis) Some elements in this clinic note that are critical to medical decision making have been carefully reviewed and included from a prior clinic note dated: December 27, 2023 (Liz) Referring Provider: Dr. Madelaine Ferris Additional Clinicians involved in Jonessusan Haley's care: VIRTUAL VISIT PROGRESS NOTE This is a virtual visit using [employer] Video Call. It required patient-provider interaction for the medical decision making as documented below. I have communicated my name and active licensure. The patient's identity and physical location were verified at the time of this visit. Either the patient or their legal call center representative has been informed of the risks and benefits of -- and alternatives to -- treatment through a remote evaluation and consents to proceed with the evaluation remotely. DIAGNOSIS: Multiple symptoms ASSESSMENT: 43 year old [...] seemed to improve that much since May. IgM remains elevated, IgG still decreased. No Large granular Lymphocytes noted. PLAN: Obtain body fluid culture from [facility]. B12 shot today and every 4 weeks. Continue Folic acid. Frequent infections plan IVIG for hypogammaglobulinemia Start when approved. Q 4 weeks RTC 3 months repeat labs same day. IVIG same day. HPI: CASE HISTORY: Reverse Chronological Order 03/23/2024 - IgG, IgM 476, 373, vit D 19.9, cbc : 12.89>13.1/39.3<262, WSR - 27. Currently 2021 ongoing and generalized malaise with elevated IgM. 2020 - lymph node biopsy from neck negative for malignancy. 2019 - had a respiratory illness with dyspnea, possible bronchitis, no cough Updated Visit, March 27, 2024: Virtual Visit Has a breast infection that cultured out but is not being treated. - unusual culture and resistant to many drugs. Blood cultures pending. Has recovered from C-Diff. Vitamin-D - 19.9 but hasn't been taking her vitamin D often enough. Updated Visit, December 27, 2023: Returns for [...] lower lip done 2 days ago at [facility] - awaiting results. B12 [...] She follows with multiple doctors including and manuscripts curator, hydrological technical officer, board handler and PCP. She has been told they [...] ECOG PERFORMANCE STATUS: 0 PHYSICAL EXAMINATION: Vitals: [facility] 05/18/2022 There is no height or weight on file to calculate BSA. No exam ALLERGIES: ALLERGIES Allergen Reactions Bactrim [Sulfametho* Other: [...] thinks she just experienced side effects. MEDICATIONS: predniSONE (DELTASONE) 10 mg tablet TAKE 1 TABLET BY MOUTH EVERY DAY WITH FOOD NO ORAL NSAIDS folic acid 1 mg tablet Take 1 [...] by mouth once a week with food. pregabalin (LYRICA) 75 mg capsule take 1 [...] mouth. LABORATORY VALUES: WBC (k/uL) Date Value 03/23/2024 12.89 (H) RBC (m/uL) Date Value 03/23/2024 4.19 Hemoglobin (g/dL) Date Value 03/23/2024 13.1 Hematocrit (%) Date Value 03/23/2024 39.3 MCV (fL) Date Value 03/23/2024 93.8 MCH (pg) Date Value 03/23/2024 31.3 MCHC (g/dL) Date Value 03/23/2024 33.3 RDW-CV (%) Date Value 03/23/2024 15.2 (H) Platelet Count (k/uL) Date Value 03/23/2024 262 MPV (fL) Date Value 03/23/2024 10.0 Glucose (mg/dL) Date Value 03/23/2024 152 (H) BUN (mg/dL) Date Value 03/23/2024 20 Creatinine (mg/dL) Date Value 03/23/2024 0.61 Sodium (mmol/L) Date Value 03/23/2024 139 Potassium (mmol/L) Date Value 03/23/2024 4.3 Chloride (mmol/L) Date Value 03/23/2024 104 CO2 (mmol/L) Date Value 03/23/2024 20 (L) Protein, Total (g/dL) Date Value 03/23/2024 6.6 Albumin (g/dL) Date Value 03/23/2024 3.9 Calcium, Total (mg/dL) Date Value 03/23/2024 9.2 Alkaline Phosphatase (U/L) Date Value 03/23/2024 70 Bilirubin, Total (mg/dL) Date Value 03/23/2024 <0.2 (L) AST (U/L) Date Value 03/23/2024 20 ALT (U/L) Date Value 03/23/2024 27 Cholesterol, Total (mg/dL) Date Value 05/21/2015 217 (H) Triglyceride (mg/dL) Date Value 05/21/2015 242 (H) DIAGNOSIS: (D53.1) Megaloblastic anemia due to vitamin B12 deficiency (primary encounter diagnosis) (R76.8) High total serum IgM (G47.33) JOSE RAFAEL (obstructive sleep apnea) (R70.0) Elevated sed rate (D80.1) Hypogammaglobulinemia (HCC) (Z86.19) Frequent infections PAST MEDICAL HISTORY Diagnosis Date Chronic pain [...] completing clinical documentation, counseling and educating the patient/family/caregiver, ordering medications, tests, or procedures, independently interpreting results (not separately reported), communicating results to the patient/family/caregiver, and care coordination (not separately reported). Jose Najera MD, [facility] Provided at: [place], [place] CC: Madelaine Ferris MD [id number] [id number] documented in this encounter [facility] 03-23-2024 History of Present illness Narrative Reason for Appointment: Patient ID: Jones Haley is a 43 y.o. female who presents for Vaginal Bleeding (Pt present today for bleeding when she wipes.) Patient presents today for AUB MEDICATIONS Current Outpatient Medications Medication Instructions acetaminophen (Tylenol) 325 MG tablet Every 4 hours ALPRAZolam (Xanax) 0.25 MG tablet TAKE 1 TABLET BY MOUTH EVERY DAY NEEDED FOR 30 DAYS aspirin 81 mg, Daily azaTHIOprine (IMURAN) 150 mg, Daily baclofen (Lioresal) 5 MG tablet TAKE 1 TABLET BY MOUTH IN THE MORNING, EVENING AND BEFORE BEDTIME belimumab (BENLYSTA) 200 mg, Weekly Chlorhexidine Gluconate (Hibiclens) 4 % solution 1 Application, Topical, Daily, LATHER ONTO AFFECTED AREAS ON THE BODY AND RINSE FROM THE NECK DOWN 2 TIMES A WEEK AVOIDING THE FACE. 30 day supply clindamycin (Clindagel) 1 % gel APPLY TO AFFECTED AREA DAILY Clobetasol Propionate 0.05 % shampoo 1 application to the scalp in the shower topically 3-4 times a week diclofenac sodium 1 % gel APPLY DIRECTED TO AFFECTED AREA NEEDED ergocalciferol (VITAMIN D2) 50,000 Units, Weekly fluocinonide (Lidex) 0.05 % external solution Apply to affected areas on the scalp, up to twice a day when flared, 30 day supply fluticasone (Flonase) 50 MCG/ACT nasal spray 2 sprays, Each Nostril, 2 times daily, Shake gently. Before first use, prime pump. After use, clean tip and replace cap. folic acid (FOLVITE) 1 mg, Daily RT hydroxychloroquine (Plaquenil) 400 MG tablet Every 24 hours ibuprofen 200 MG tablet Every 8 hours metoprolol tartrate (LOPRESSOR) 100 mg, 2 times daily nystatin (Mycostatin) cream Apply to left armpit BID until clear predniSONE 10 mg, Every 24 hours tacrolimus (Protopic) 0.1 % ointment APPLY TO AFFECTED AREA TWICE DAILY WHEN FLARED thiamine (VITAMIN B-1) 100 mg, Oral, Every morning tretinoin (Retin-A) 0.05 % cream Apply to face, once daily at evening/night time, 30 day supply Triamcinolone Acetonide 0.025 % lotion 1 application ALLERGIES Allergies Allergen Reactions Codeine Other Reaction(s): Other: See Comments, Trouble breathing ... Make her feel Jittery. OTHERWISE, NO SOB/WHEEZING, and NO DYSPHAGIA, NO URTICARIA, NO ANGIOEDEMA Doxycycline Unknown Sulfamethoxazole Other Reaction(s): gi Other Reaction(s): lymph swelling Trimethoprim Other Reaction(s): gi Other Reaction(s): lymph swelling Clindamycin Other Reaction(s): Unknown Patient states it was a long time ago and she did not have a severe reaction. She does not believe she is allergic, she just thinks she just experienced side effects. Other Reaction(s): Unknown Reaction Latex Rash Other Reaction(s): Rash Patient states [...] just thinks she just experienced side effects. PROBLEMS Active Ambulatory Problems Diagnosis Date Noted Autoimmune disease ([facility]) 06/01/2023 Fibromyalgia 06/01/2023 Autonomic dysfunction 06/01/2023 Dizziness 06/01/2023 Tachycardia 06/01/2023 Nonintractable episodic headache 06/01/2023 CHRISTIAN positive 06/15/2022 Anemia, unspecified 03/11/2022 Anxiety 06/09/2023 Ataxia 05/31/2014 Bilateral leg weakness 03/05/2021 Bilateral wrist pain 02/04/2023 Cervical radiculopathy 07/06/2023 Lumbosacral radiculopathy at L5 07/06/2023 Chronic fatigue and malaise 06/10/2023 Chronic laryngopharyngitis 07/06/2023 Chronic pain of toes of both feet 03/05/2021 Current smoker 07/06/2023 Tobacco use disorder 07/06/2023 Cytomegalovirus infection (HCC) ([facility]) 07/06/2023 Depression, recurrent ([facility]) 06/09/2023 Discoid lupus erythematosus ([facility]) 02/14/2022 Disturbance of skin sensation 07/06/2023 Elevated sed rate 03/05/2021 High total serum IgM 03/05/2021 Enthesopathy of hip region 07/06/2023 Essential hypertension ([facility]) 06/09/2023 Excessive and frequent menstruation with irregular cycle 09/24/2022 Family history of Crohn's disease 03/05/2021 Hair loss 03/05/2021 Hyperlipidemia ([facility]) 05/31/2014 [facility] 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 02/04/2023 Long-term use of high-risk medication 06/15/2022 Long-term use of Plaquenil 03/05/2021 LPRD (laryngopharyngeal reflux disease) 07/06/2023 Megaloblastic anemia due to vitamin B12 deficiency 03/04/2022 Myalgia 07/06/2023 Obesity, Class III, BMI 40-49.9 (morbid obesity) ([facility]) 09/07/2022 Obstructive sleep apnea syndrome 05/20/2022 Oral lesion 07/06/2023 Pain, hip 07/06/2023 Rash and nonspecific skin eruption 03/05/2021 Steroid-induced osteoporosis ([facility]) 02/04/2023 Somnolence, daytime 05/20/2022 Secondary osteoarthritis of multiple sites 03/05/2021 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 02/04/2023 Swelling of lymph nodes 03/05/2021 Vitamin D deficiency 03/06/2021 Vitamin B12 deficiency 05/31/2014 Pure hypercholesterolemia, unspecified ([facility]) 08/10/2023 Hoarse 08/10/2023 Thyroid nodule ([facility]) 08/10/2023 Shortness of breath 07/13/2023 Paroxysmal supraventricular tachycardia ([facility]) 07/13/2023 PAC (premature atrial contraction) 07/13/2023 Degenerative disc disease, lumbar 11/08/2023 Paresthesias 11/08/2023 Nipple discharge 11/15/2023 Irregular periods/menstrual cycles 11/15/2023 Facet arthritis of lumbar region 12/15/2023 Resolved Ambulatory Problems Diagnosis Date Noted No Resolved Ambulatory Problems Past Medical History: Diagnosis Date Cervical lymphadenopathy COVID-19 vaccine administered Difficulty walking Fatigue Fibromyalgia, primary GERD (gastroesophageal reflux disease) History of removal of cyst 2012 HTN (hypertension) ([facility]) Hx of abnormal cervical Pap smear Insulin resistance Laryngopharyngeal reflux disease Lupus Numbness Oral thrush Prediabetes Sleep apnea Weakness of limb HISTORY PAST MEDICAL HISTORY SOCIAL HISTORY Past Medical History: Diagnosis Date Anxiety Cervical lymphadenopathy Chronic laryngopharyngitis COVID-19 vaccine administered x 2 ([facility]) Difficulty walking Fatigue Fibromyalgia, primary GERD (gastroesophageal reflux disease) History of removal of cyst 2012 tailbone x2 HTN (hypertension) ([facility]) Hx of abnormal cervical Pap smear Hyperlipidemia ([facility]) Insulin resistance Laryngopharyngeal reflux disease Lupus Numbness Oral lesion Oral thrush Prediabetes Sleep apnea Tachycardia Weakness of limb Social History Tobacco Use Smoking status: Every Day Current packs/day: 1.00 Average packs/day: 1 pack/day for 28.8 years (28.8 ttl pk-yrs) Types: Cigarettes Start date: 05/24/1995 Smokeless tobacco: Never Tobacco comments: Current smoker, everyday, 11-20 cigarettes/day Vaping Use Vaping status: Never Used Substance Use Topics Alcohol use: Never Comment: Caffeine intake : > 4 cups per day Drug use: Never FAMILY HISTORY Family History Problem Relation Name Age of Onset Crohn's disease Mother Nieves Thyroid disease Mother Nieves Stomach cancer Father Micheal Cancer Father Micheal No Known Problems Sister 1 No Known Problems Daughter Lung disease Son Other (lung issue) Child 1 son with lung issue, 3 daughters Diabetes Maternal Grandmother Clelaura Heart failure Maternal Grandmother Clelaura Rheum arthritis Maternal Grandmother Clelaura SURGICAL HISTORY Past Surgical History: Procedure Laterality Date CYST REMOVAL DILATION AND CURETTAGE LYMPH NODE BIOPSY 2020 OTHER SURGICAL HISTORY cervical cryo VAGINAL DELIVERY REVIEW OF SYSTEMS Review of Systems: Review of Systems Constitutional: Negative. HENT: Negative. Eyes: Negative. Respiratory: Negative. Cardiovascular: Negative. Gastrointestinal: Negative. Genitourinary: Negative. Musculoskeletal: Negative. Skin: Negative. Neurological: Negative. All other systems reviewed and are negative. Hematological: Negative. Endocrine: Negative. Allergic/Immunologic: Negative. OBJECTIVE Objective: Physical Exam Constitutional: Appearance: Normal appearance. She is normal weight. HENT: Head: Normocephalic. Cardiovascular: Rate and Rhythm: Normal rate. Pulses: Normal pulses. Pulmonary: Effort: Pulmonary effort is normal. Breath sounds: Normal breath sounds. Abdominal: Palpations: Abdomen is soft. Musculoskeletal: General: Normal range of motion. Neurological: General: No focal deficit present. Mental Status: She is alert and oriented to person, place, and time. Psychiatric: Mood and Affect: Mood normal. Behavior: Behavior normal. Thought Content: Thought content normal. Judgment: Judgment normal. Vitals and nursing note reviewed. Vitals: Estimated body mass index is 44.17 kg/m as calculated from the following: Height as of 08/10/23: 5' 7 . Weight as of this encounter: 282 lb. BP: 122/76 Patient's last menstrual period was 03/02/2024. ASSESSMENT & PLAN ICD-10-CM 1. Abnormal uterine bleeding (AUB) N93.9 POCT urinalysis dipstick manually resulted POCT , urine manually resulted 2. Menorrhagia with regular cycle N92.0 POCT , urine manually resulted CBC and differential TSH hCG, quantitative, Protime-INR T4, free APTT Hemoglobin A1c US PELVIS-TRANSVAG IF INDICATED APTT Pt present today for AUB. Pt states she has been bleeding off and on since 03/02/2024. Pt stated she would have only blood when she wipes and not on the pad for a few days and then spotting and now heavy bleeding. Pt has irregular periods and her last period was a few months ago and pt stated she thought she was going into menopause. Urine was collected, test was done (was negative) and Menorrhagia labs/US were printed out for patient to have done. Discussed mirena and ablation, pt fears infection due to lupus. Will discuss further if lo gauri does not help Documented by Hazel Torres MA on behalf of: KELVIN Cabrera documented in this encounter [facility] 03-23-2024 Nurse Note Patient Identification confirmed: yes. Injection given and documented on MAR per provider order. Stacy Gutiérrez MA [facility] 03-23-2024 Nurse Note Patient Identification confirmed: yes. Injection given and documented on MAR per provider order. Stacy Gutiérrez MA documented in this encounter [facility] 03-20-2024 Telephone encounter Note Images from the original note were not included. [facility] 03-18-2024 History of Present illness Narrative THIS IS [...] visit. Either the patient or their legal call center representative has been informed of the risks and benefits of -- and alternatives to -- treatment through a remote evaluation and consents to proceed with the evaluation remotely. It required patient-provider interaction for the medical decision making as documented below. Persons Present: self (in home) Provider: (in office) VIRTUAL VISIT Follow up for:osteoarthritis/low vitamin D/b12/ +CHRISTIAN/high esr/+tumid lupus biopsy Today's visit 03/18/24:labs due 03/2024. taking tylenol, 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 3tabs daily, benlysta now week 14 (only off when she had infection), vitamin D script, plaquenil 2tabs daily, motrin, lopressor, lyrica, prednisone 10mg daily/refilled 03/17/24. Does not think she could get out of bed or walk without steroids. stable eye exam. NO new rashes/sores. Had thrush x 2, better with nystatin. 12/27/23 high glucose 120, esr 31, wbc 14.93;normal rest of cbc, cmp, crp <0.3, vitamin D 31; 12/27/23 saw heme/onc no need to be on anticoagulation (abnormal Chest CT and repeat testing negative for PE even though high ddimer, negative leg US for dvt), high IGM likely reactive, continue vitamin b12 injection every month 02/16/24 in hospital for recurrent C.diff diarrhea, back pain, nipple discharge, 02/18/24 requested referral to genetics. Saw GI Still has upper abd pressures since recurrent abd since C.diff, will check for CT, SIBO, celiac Still has breast ducts infection, avoiding antibiotics due to her C.diff. saw ID and ok to watch for now. 40% improvement from benlysta. limited exercise due to pain/POTS. feet swelling only when standing long time. Whole body feels very heavy and stiff. Chronic current pain in muscles, back, upper abd, legs, feet. Feet and legs feel very cold. Turn red. thinks she has raynauds. Due to see vascular soon. Reports pain 5-6/10. Has hips/back stiffness minimal AM stiffness. Feels safe at home. Has enough food, supplies and medications. Overall uncomfortable but happy with rheum care. No falls/fx/trauma/illness/oral sores/rash/hairloss/jaw pain/dysphagia/epistaxis/hemoptysis since last visit. No adverse effects with meds. No other complaints. Patient denies fever, chills, cp, dyspnea, nausea, vomiting, night sweats, scalp tenderness, visual changes, hernandez, bowel/bladder changes, weight changes or other complaints. 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 Reports pain /10. Has minimal AM stiffness. Feels safe at [...] measures, may consider osteoporosis treatment if on retirement steroids/abnormal bmd, take vitamin D script if [...] neurology/on metoprolol for POTs, avoid aggravating triggers, ad terminal makeup operator pain recommendations per primary care provider/pain [...] neurology/on metoprolol for POTs, avoid aggravating triggers, retirement pain recommendations per primary care provider/pain clinic/patient [...] Due for eye exam. Labs sent to [facility]/completed in 06/2021 (no results faxed to office, [...] dexamethasone Reports pain -11/30 No falls/fx/trauma/illness/oral sores/rash/hairloss/jaw pain/dysphagia/epistaxis/hemoptysis . No adverse effects with meds. No other complaints. Patient denies fever, chills, cp, dyspnea, nausea, vomiting, night sweats, scalp tenderness, visual changes, hernandez, bowel/bladder changes, weight changes or other complaints. COMPLETE REVIEW OF SYSTEMS: RHEUM. ROS: Joint pain: yes axilla, low back, legs, feet, flank pain Joint swelling: no Am stiffness: yes all day Low back pain: yes H/o precedent/frequent infection(s): as above Enthesopathy/Texline's/heel/plantar tenderness: hands random painful/tingling Skin thickening, psoriasis, photosensitivity, purpura: as above Alpecia, patchy: yes Eye inflammation: glasses GI problems-diarrhea/bleeding/IBD/Glut en intolerence/Dysphagia: as above Fatigue: yes, sleeps 10 [...] COVID-19 original vaccine, age 12+ yr, monovalent ([employer] - PURPLE TOP) 09/28/2020 10/19/2020 05/26/2021 COVID-19 vaccine, age 12+ yr ([employer] COMIRNATY) 02/23/2023 COVID-19 vaccine, age 12+ yr, bivalent ([employer]) 02/08/2022 Pneumovax no Flu shot no Tetanus [...] etoh no No gout MEDICATIONS: reviewed medlist 03/18/24 Calcium no Vitamin D script CURRENT ALLERGIES: Allergies As of Date: 03/18/2024 Allergen Noted Reaction BACTRIM [SULFAMETHOXAZOLE] 05/31/2014 Other: See Comments CODEINE 05/31/2014 Other: See Comments CLINDAMYCIN 03/04/2022 Unknown DOXYCYCLINE 01/19/2022 Other: See Comments LATEX 05/31/2014 Rash SULFAMETHOXAZOLE-TRIMETHOPRIM 03/04/2022 Swelling TRIMETHOPRIM 01/19/2022 Other: See Comments Fully Assessed 02/21/2024 TESTS:All Diagnostic tests reviewed for today's visit: 12/27/23 high glucose 120, esr 31, wbc 14.93;normal rest of cbc, cmp, crp <0.3, vitamin D 31; 12/27/23 saw heme/onc no need to be on anticoagulation, high IGM likely reactive, continue vitamin b12 every month 08/31/23 high wbc 13.43, glucose 160, esr [...] (33);NL cbc, cmp, negative hla b27; Outside [place] 06/2021 low vitamin D 16, vitamin b12-307;high [...] arthrosis at L405, L5-S1 PHYSICAL EXAM:reviewed vitals from last visit General Appearance: WD/WN, NAD. Appropriate grooming. Very pleasant. Sitting at home, uncomfortable due to pain, speaks in full [...] NECK: no visible thyromegaly or LAD. EXTREMITIES:No clubbing,discoloration,sclerodactyl y, periungual erythema, digital ulcers, nail pitting, edema, varicosities. MUSCULOSK: No joint deformities, no rheumatoid nodules, calcifications or tophi. No SI tenderness, no selene's tenderness, no heel/plantar tenderness, lumbar flexion full, negative Sumaya's test, tinel's and phil tests Swoll JTS:no Tend. JTS: both hands, lumbar area, neck, knees, diffusely UEs, axilla, legs, feet, flank pain, decreased range of motion due to pain; no warmth/erythema No clinical synovitis in the DIP's, PIP's, MCP's, wrists, elbows, shoulders, knees, ankles, midfoot, or toes. no knee effusions bilateral. 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 Haley is a 43 year old female with PMH depression, diffuse [...] better with warmer weather. No digital ulcers. labs due 03/2024. taking tylenol, 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 3tabs daily, benlysta now week 14 (only off when she had infection), vitamin D script, plaquenil 2tabs daily, motrin, lopressor, lyrica, prednisone 10mg daily/refilled 03/17/24. Does not think she could get out of bed or walk without steroids. stable eye exam. NO new rashes/sores. Had thrush x 2, better with nystatin. 12/27/23 high glucose 120, esr 31, wbc 14.93;normal rest of cbc, cmp, crp <0.3, vitamin D 31; 12/27/23 saw heme/onc no need to be on anticoagulation (abnormal Chest CT and repeat testing negative for PE even though high ddimer, negative leg US for dvt), high IGM likely reactive, continue vitamin b12 injection every month 02/16/24 in hospital for recurrent C.diff diarrhea, back pain, nipple discharge, 02/18/24 requested referral to genetics. Saw GI Still has upper abd pressures since recurrent abd since C.diff, will check for CT, SIBO, celiac Still has breast ducts infection, avoiding antibiotics due to her C.diff. saw ID and ok to watch for now. 40% improvement from benlysta. limited exercise due to pain/POTS. feet swelling only when standing long time. Whole body feels very heavy and stiff. Chronic current pain in muscles, back, upper abd, legs, feet. Feet and legs feel very cold. Turn red. thinks she has raynauds. Due to see vascular soon. Reports pain 5-6/10. Has hips/back stiffness minimal AM stiffness. Feels safe at home. Has enough food, supplies and medications. Overall uncomfortable but happy with rheum care. 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 RECOMMENDATION/PLAN: Reviewed labs/tests with patient Provided printed info 02/04/23 precert for benlysta 03/18/24 check nonfasting labs every 3months 10/05/23 SLAQ 15;02/04/23 SLAQ 24;Modified 03/18/24 KRISTEN 1, pain 50-60%;10/05/23 KRISTEN 0, pain 50%;02/04/23 KRISTEN 0, pain [...] (200mg) daily with a meal Please see top tile decorator every 6-12months while on Hydroxychloroquine. Start 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 [...] touching your toes, sit-ups, using row machine retirement pain recommendations per primary care provider/pain clinic [...] Patient agrees to plan as noted above. The above reflects my independent exam and review. I saw and examined the patient myself personally. Parts of the HPI, ROS, exam and impression/plan may have been copied from my personal previous clinical note and remain pertinent. Current changes have been made and documented today. Other parts or data were deleted if not relevant for today. Plan as outlined. Medical decision making was high complexity due to patient's, multiple symptoms, multiple advancing diseases. Total time spent on this visit, with more than 50% of time spent via video & audio (virtual) or phone or face to face with patient, in consultation, and in addition to Counseling and Coordination of Care, explanation of diagnosis, and planning of further management; I spent a total of 30 minutes 8:47-9:17AM on the date of the service in addition to 10-15min preparing to tallk with the patient, video & audio (virtual) or phone or [id number] patient care, completing clinical documentation, obtaining and/or [...] visit: Review of Systems Rheumatology (Submitted on 03/16/2024) Fever : No Recent unintentional weight change: No Eye pain: No Eye redness: No Vision Disturbance: No Eye Dryness: No Nosebleeds: No Sores in your mouth: Yes Trouble Swallowing: Yes Dry Mouth: Yes Chest pain: Yes Leg Swelling: Yes A cough: No Shortness of breath: Yes Pain with breathing: No Heartburn: Yes Abdominal pain: Yes Diarrhea: No Black tarry stools: No Blood in urine: No Pain or burning with urination: No Joint pain or stiffness: Yes Muscle weakness: Yes Muscle aches: Yes Joint swelling: Yes Morning Stiffness in Joints: Yes A rash: Yes Do you have sun sensitive rashes?: Yes Skin Color Changes: Yes Hair Loss: Yes Nail Changes: Yes Headaches: No Numbness: Yes Memory Loss: No Swollen Glands: No MYCHART AMBULATORY VISIT INTAKE QUESTIONNAIRE Question 03/16/2024 7:44 PM EDT - Filed by Patient 02/14/2024 6:34 AM EDT - Filed by Patient 01/26/2024 7:37 PM EDT - Filed by Patient Has the Patient Had 2 Falls in the Last Year or 1 Fall with Injury or Currently Using an Ambulatory Assistive Device (Walker, Cane, Wheelchair, Crutches, etc.) No No No Are you having pain associated with your visit today? Yes No No What is your Pain Level? Pain Location Abdomen-Mid Upper Description Pressure Duration Amount of Time Duration Units Months Frequency Intermittent Intervention/Comfort measure Comments [facility] MYCHART ADDITIONAL DEMO Question 03/16/2024 7:44 PM EDT - Filed by Patient Is this visit related to an accident, other than Workers' Compensation? No Is this visit related to Workers' Compensation? No Do you need an translator/interpreter? No [facility] MYCHART ZOOM MESSAGE Question 03/16/2024 7:44 PM EDT - Filed by Patient Install Zoom I have Zoom installed [facility] PROMIS CAT V2.0-PHYSICAL FUNCTION-28 DAYS Question 03/16/2024 7:46 PM EDT - Filed by Patient 2023 11:04 PM EDT - Filed by Patient PROMIS Physical Function T-Score (range: 10 - 90) 27 (severe dysfunction) Abnormal 29 (severe dysfunction) Abnormal PROMIS Physical Function Percentile (range: 0 - 100) 1 2 [facility] PROMIS CAT V1.0 - FATIGUE-28 DAYS Question 03/16/2024 7:46 PM EDT - Filed by Patient 2023 11:05 PM EDT - Filed by Patient PROMIS Fatigue T-Score (range: 10 - 90) 59 (mild) Abnormal 59 (mild) Abnormal PROMIS Fatigue Percentile (range: 0 - 100) 18 18 [facility] PROMIS CAT V1.1-PAIN INTERFERENCE-28 DAYS Question 03/16/2024 7:47 PM EDT - Filed by Patient 2023 11:06 PM EDT - Filed by Patient PROMIS Pain Interference T-Score (range: 10 - 90) (range: 10 - 90) 68 (moderate) Abnormal 66 (moderate) Abnormal PROMIS Pain Interference Percentile (range: 0 - 100) 4 5 [facility] SLAQ QUESTIONNAIRE Question 03/16/2024 7:51 PM EDT - Filed by Patient 2023 11:10 PM EDT - Filed by Patient IN THE PAST 3 MONTHS, have you had a lupus flare? (A lupus flare is when your lupus gets worse). Which of the following responses best describes you? Yes, moderate flare Yes, moderate flare Please review the following list of lupus symptoms. IN THE PAST 3 MONTHS, how bad has each of the symptoms been? Lost weight without trying No problem No problem Fatigue Mild Mild Fevers (greater than 101 F, 38.5 C) taken by a thermometer No problem No problem Sores in mouth or nose Moderate No problem Rash on cheeks (shaped like a butterfly) Mild Mild Other rash No problem No problem Dark blue or purple spots you could feel on your skin No problem No problem Rash or feeling sick after going out in the sun No problem No problem Bald patches on scalp, or clumps of hair on pillow No problem Moderate Swollen glands (nodes) in the neck No problem Mild Shortness of breath Moderate No problem Chest pain with a deep breath No problem No problem Fingers or toes turning white or very pale in the cold (Raynaud's) Severe Moderate Stomach or belly pain Severe Severe Persistent numbness or tingling in your arms or legs Mild Mild Seizures No problem No problem Stroke No problem No problem Forgetfulness No problem No problem Feeling depressed Mild No problem Unusual headaches No problem No problem Muscle pain Moderate Moderate Muscle weakness Mild Moderate Pain or stiffness in joints Severe Severe Swelling in joints Mild Moderate Please rate the disease activity of your lupus DURING THE PAST 3 MONTHS on the scale below, where 0 is no activity and 10 is the most activity. (Select your most active day). 7 6 SLAQ Score (range: 0 - 47) 14 15 MYC DOCUMENT/IMAGE UPLOAD Question 03/16/2024 7:51 PM EDT - Filed by Patient Photo [...] ADULT SHORT FORM V1.0 GLOBAL HEALTH Question 12/27/2023 7:52 AM EDT - Filed by Patient In the past 7 days In general, would you say your health is: Poor Abnormal In general, would you say your quality of life is: Poor Abnormal In general, how would you rate your physical health? Poor Abnormal In general, how would you rate your mental health, including your mood and your ability to think? Fair Abnormal In general, how would you rate your satisfaction with your social activities and relationships? Fair Abnormal In general, please rate how well you carry out your usual social activities and roles. (This includes activities at home, at work and in your community, and responsibilities as a parent, child, spouse, employee, friend, etc.) Fair Abnormal To what extent are you able to carry out your everyday physical activities such as walking, climbing stairs, carrying groceries, or moving a chair? A little Abnormal In the past 7 days In the past 7 days, how often have you been bothered by emotional problems such as feeling anxious, depressed or irritable? In the past 7 days, how would you rate your fatigue on average? Moderate In the past 7 days, how would you rate your pain on average? 6 Abnormal PROMIS Adult Short Form-Global Health Score (Physical) (range: 16 - 68) 32.4 (Poor) Abnormal PROMIS Adult Short Form-Global Health Score (Mental) (range: 21 - 68) Incomplete Myc Promis Gh Physical Score Compared To Last (range: -2 - 3) 3 (WITHIN +/- 5) Myc Promis Gh Mental Score Compared To Last (range: -2 - 3) 2 (LESS < or = 5) MYC PROVIDER UNDERSTANDING CURRENT HEALTH RHEUMATOLOGY Question 2023 11:10 PM EDT - Filed by Patient These questions will help my provider understand my health Strongly Agree documented in this encounter [facility] 03-18-2024 Note [facility] 03-18-2024 Instructions Lynne Ni MD - 03/18/2024 7:31 AM EDT May apply over the counter [...] (200mg) daily with a meal Please see top tile decorator every 6-12months while on Hydroxychloroquine. 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 daily with food. Benlysta injection sq once a week Please hold 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/benlysta if on antibiotics or if you have [...] touching your toes, sit-ups, using row machine ad terminal makeup operator pain recommendations per primary care provider/pain clinic Nonfasting labs as scheduled Thank you. BONE MINERAL DENSITY PATIENT INSTRUCTIONS ====== Bone mineral density testing measures the amount [...] usual activities immediately. documented in this encounter [facility] 03-17-2024 Telephone encounter Note Notify patient medication sent as requested Thank you. Patient's request for medication is as follows: Requested Prescriptions Pending Prescriptions Disp Refills predniSONE (DELTASONE) 10 mg tablet [Pharmacy Med Name: PREDNISONE 10 MG TABLET] 30 tablet 5 Sig: TAKE 1 TABLET BY MOUTH EVERY DAY WITH FOOD NO ORAL NSAIDS Prescription(s) as above. Please process accordingly. Lynne Ni MD [facility] 03-17-2024 Miscellaneous Notes Notify patient medication sent as requested Thank you. Patient's request for medication is as follows: Requested Prescriptions Pending Prescriptions Disp Refills predniSONE (DELTASONE) 10 mg tablet [Pharmacy Med Name: PREDNISONE 10 MG TABLET] 30 tablet 5 Sig: TAKE 1 TABLET BY MOUTH EVERY DAY WITH FOOD NO ORAL NSAIDS Prescription(s) as above. Please process accordingly. Lynne [...] 365 Days Visit Type Date Time Department VIDEO SPEC EST 03/18/2024 9:00 AM [facility] Last Ophthalmology Check for Plaquenil (Hydroxychloroquine) Last OCT Macula Exam No resulted procedures found. Last Visual Field Exam No resulted procedures found. CBC: Latest Ref Rng & Units 12/27/2023 02/21/2024 CBC WBC 3.70 - 11.00 k/uL 14.93 16.58 Hemoglobin 11.5 - 15.5 g/dL 13.0 13.8 Hematocrit 36.0 - 46.0 % 39.6 41.2 Platelet Count 150 - 400 k/uL 309 332 Abs Neut (ANC) 1.45 - 7.50 k/uL 13.99 Abs Lymph 1.00 - 4.00 k/uL 1.62 Vitamin D: Latest Ref Rng & Units 08/31/2023 12/27/2023 Vitamin D Vitamin D 25 Hydroxy 31.0 - 80.0 ng/mL 32.2 31.0 LFT: Latest Ref Rng & Units 12/27/2023 02/21/2024 CMP Sodium 136 - 144 mmol/L 144 140 Potassium 3.7 - 5.1 mmol/L 4.1 4.2 Chloride 98 - 107 mmol/L 107 107 CO2 22 - 30 mmol/L 23 20 Glucose 74 - 99 mg/dL 120 215 BUN 7 - 21 mg/dL 13 15 Creatinine 0.58 - 0.96 mg/dL 0.70 0.65 Calcium 8.5 - 10.2 mg/dL 10.0 9.5 AST 13 - 35 U/L 13 9 ALT 7 - 38 U/L 23 22 Alkaline Phosphatase 34 - 123 U/L 77 72 Hepatic Function: Creatinine: Latest Ref Rng & Units 12/27/2023 02/21/2024 Creatinine Creatinine 0.58 - 0.96 mg/dL 0.70 0.65 ESR/CRP: Latest Ref Rng & Units 12/27/2023 02/21/2024 ESR, WSR WSR 0 - 20 mm/hr 31 33 Latest Ref Rng & Units 08/31/2023 12/27/2023 CRP CRP <0.9 mg/dL 0.6 <0.3 Uric Acid: None on file in the last 6 months Open Standing (Multiple Instance) Lab Orders Remain Interval Expires Ordered Last Rel. CBC + DIFF [SQCBCDIF] 1/5 Every 3 months 06/02/24 06/03/23 02/21/24 Auth. provider: Jose Najera MD Assoc. diagnoses: Megaloblastic anemia due to vitamin B12 deficiency, Elevated sed rate COMP METABOLIC PANEL [SQCMP] 1/5 Every 3 months 06/02/24 06/03/23 02/21/24 Auth. provider: Jose Najera MD Assoc. diagnoses: Megaloblastic anemia due to vitamin B12 deficiency, Elevated sed rate IRON + TIBC [SQIRON] 1/5 Every 3 months 06/02/24 06/03/23 02/21/24 Auth. provider: Jose Najera MD Assoc. diagnoses: Megaloblastic anemia due to vitamin B12 deficiency, Elevated sed rate FERRITIN BLD [SQFERR] 1/5 Every 3 months 06/02/24 06/03/23 02/21/24 Auth. provider: Jose Najera MD Assoc. diagnoses: Megaloblastic anemia due to vitamin B12 deficiency, Elevated sed rate VITAMIN B12 BLOOD [SQB12] /5 Every 3 months 06/02/24 06/03/23 02/21/24 Auth. provider: Jose Najera MD Assoc. diagnoses: Megaloblastic anemia due to vitamin B12 deficiency, Elevated sed rate FOLATE SERUM [SQSERFOL] /5 Every 3 months 06/02/24 06/03/23 02/21/24 Auth. provider: Jose Najera MD Assoc. diagnoses: Megaloblastic anemia due to vitamin B12 deficiency, Elevated sed rate SED RATE WESTERGREN [SQWSR] /4 Every 3 months 06/09/24 06/10/23 02/21/24 Auth. provider: Jose Naejra MD Assoc. diagnoses: Elevated sed rate Open [...] Lynne Ni MD Assoc. diagnoses: Screening-pulmonary TB BLOOD CULTURE [SQBLCUL] 01/27/24 04/27/24 01/27/24 Auth. provider: Alhaji Head DO Assoc. diagnoses: Pseudomonas infection BLOOD CULTURE [SQBLCUL] 01/27/24 04/27/24 01/27/24 Auth. provider: Alhaji Head DO Assoc. diagnoses: Pseudomonas infection documented in this encounter [facility] 03-17-2024 Telephone encounter Note Images from the original [...] 365 Days Visit Type Date Time Department VIDEO SPEC EST 03/18/2024 9:00 AM [facility] Last Ophthalmology Check for Plaquenil (Hydroxychloroquine) Last OCT Macula Exam No resulted procedures found. Last Visual Field Exam No resulted procedures found. CBC: Latest Ref Rng & Units 12/27/2023 02/21/2024 CBC WBC 3.70 - 11.00 k/uL 14.93 16.58 Hemoglobin 11.5 - 15.5 g/dL 13.0 13.8 Hematocrit 36.0 - 46.0 % 39.6 41.2 Platelet Count 150 - 400 k/uL 309 332 Abs Neut (ANC) 1.45 - 7.50 k/uL 13.99 Abs Lymph 1.00 - 4.00 k/uL 1.62 Vitamin D: Latest Ref Rng & Units 08/31/2023 12/27/2023 Vitamin D Vitamin D 25 Hydroxy 31.0 - 80.0 ng/mL 32.2 31.0 LFT: Latest Ref Rng & Units 12/27/2023 02/21/2024 CMP Sodium 136 - 144 mmol/L 144 140 Potassium 3.7 - 5.1 mmol/L 4.1 4.2 Chloride 98 - 107 mmol/L 107 107 CO2 22 - 30 mmol/L 23 20 Glucose 74 - 99 mg/dL 120 215 BUN 7 - 21 mg/dL 13 15 Creatinine 0.58 - 0.96 mg/dL 0.70 0.65 Calcium 8.5 - 10.2 mg/dL 10.0 9.5 AST 13 - 35 U/L 13 9 ALT 7 - 38 U/L 23 22 Alkaline Phosphatase 34 - 123 U/L 77 72 Hepatic Function: Creatinine: Latest Ref Rng & Units 12/27/2023 02/21/2024 Creatinine Creatinine 0.58 - 0.96 mg/dL 0.70 0.65 ESR/CRP: Latest Ref Rng & Units 12/27/2023 02/21/2024 ESR, WSR WSR 0 - 20 mm/hr 31 33 Latest Ref Rng & Units 08/31/2023 12/27/2023 CRP CRP <0.9 mg/dL 0.6 <0.3 Uric Acid: None on file in the last 6 months Open Standing (Multiple Instance) Lab Orders Remain Interval Expires Ordered Last Rel. CBC + DIFF [SQCBCDIF] 1/5 Every 3 months 06/02/24 06/03/23 02/21/24 Auth. provider: Jose Najera MD Assoc. diagnoses: Megaloblastic anemia due to vitamin B12 deficiency, Elevated sed rate COMP METABOLIC PANEL [SQCMP] 1/5 Every 3 months 06/02/24 06/03/23 02/21/24 Auth. provider: Jose Najera MD Assoc. diagnoses: Megaloblastic anemia due to vitamin B12 deficiency, Elevated sed rate IRON + TIBC [SQIRON] 1/5 Every 3 months 06/02/24 06/03/23 02/21/24 Auth. provider: Jose Najera MD Assoc. diagnoses: Megaloblastic anemia due to vitamin B12 deficiency, Elevated sed rate FERRITIN BLD [SQFERR] 1/5 Every 3 months 06/02/24 06/03/23 02/21/24 Auth. provider: Jose Najera MD Assoc. diagnoses: Megaloblastic anemia due to vitamin B12 deficiency, Elevated sed rate VITAMIN B12 BLOOD [SQB12] 1/5 Every 3 months 06/02/24 06/03/23 02/21/24 Auth. provider: Jose Najera MD Assoc. diagnoses: Megaloblastic anemia due to vitamin B12 deficiency, Elevated sed rate FOLATE SERUM [SQSERFOL] 1/5 Every 3 months 06/02/24 06/03/23 02/21/24 Auth. provider: Jose Najera MD Assoc. diagnoses: Megaloblastic anemia due to vitamin B12 deficiency, Elevated sed rate SED RATE WESTERGREN [SQWSR] 1/ Every 3 months 06/09/24 06/10/2302/20/24 Auth. provider: Jose Najera MD Assoc. diagnoses: [...] Lynne Ni MD Assoc. diagnoses: Screening-pulmonary TB BLOOD CULTURE [SQBLCUL] 01/27/24 04/27/24 01/27/24 Auth. provider: Alhaji Head DO Assoc. diagnoses: Pseudomonas infection BLOOD CULTURE [SQBLCUL] 01/27/24 04/27/24 01/27/24 Auth. provider: Alhaji Head DO Assoc. diagnoses: Pseudomonas infection [facility] 03-16-2024 History of Present illness Narrative Reason for Appointment: Patient ID: Jones Haley is a 43 y.o. female who presents for Breast Problem Patient presents today for Acute Visit. MEDICATIONS Current Outpatient Medications Medication Instructions acetaminophen (Tylenol) 325 MG tablet Every 4 hours ALPRAZolam (Xanax) 0.25 MG tablet TAKE 1 TABLET BY MOUTH EVERY DAY NEEDED FOR 30 DAYS aspirin 81 mg, Daily azaTHIOprine (IMURAN) 150 mg, Daily baclofen (Lioresal) 5 MG tablet TAKE 1 TABLET BY MOUTH IN THE MORNING, EVENING AND BEFORE BEDTIME belimumab (BENLYSTA) 200 mg, Weekly clindamycin (Clindagel) 1 % gel APPLY TO AFFECTED AREA DAILY Clobetasol Propionate 0.05 % shampoo 1 application to the scalp in the shower topically 3-4 times a week diclofenac sodium 1 % gel APPLY DIRECTED TO AFFECTED AREA NEEDED ergocalciferol (VITAMIN D2) 50,000 Units, Weekly fluocinonide (Lidex) 0.05 % external solution Apply to affected areas on the scalp, up to twice a day when flared, 30 day supply fluticasone (Flonase) 50 MCG/ACT nasal spray 2 sprays, Each Nostril, 2 times daily, Shake gently. Before first use, prime pump. After use, clean tip and replace cap. folic acid (FOLVITE) 1 mg, Daily RT Hibiclens 4 % solution LATHER ONTO AFFECTED AREAS ON THE BODY AND RINSE FROM THE NECK DOWN,2 TIMES A WEEK AVOIDING THE FACE hydroxychloroquine (Plaquenil) 400 MG tablet Every 24 hours ibuprofen 200 MG tablet Every 8 hours metoprolol tartrate (LOPRESSOR) 100 mg, 2 times daily nystatin (Mycostatin) cream Apply to left armpit BID until clear predniSONE 10 mg, Every 24 hours tacrolimus (Protopic) 0.1 % ointment APPLY TO AFFECTED AREA TWICE DAILY WHEN FLARED thiamine (VITAMIN B-1) 100 mg, Oral, Every morning tretinoin (Retin-A) 0.05 % cream Apply to face, once daily at evening/night time, 30 day supply Triamcinolone Acetonide 0.025 % lotion 1 application ALLERGIES Allergies Allergen Reactions Codeine Other Reaction(s): Other: See Comments, Trouble breathing ... Make her feel Jittery. OTHERWISE, NO SOB/WHEEZING, and NO DYSPHAGIA, NO URTICARIA, NO ANGIOEDEMA Doxycycline Unknown Sulfamethoxazole Other Reaction(s): gi Other Reaction(s): lymph swelling Trimethoprim Other Reaction(s): gi Other Reaction(s): lymph swelling Clindamycin Other Reaction(s): Unknown Patient states it was a long time ago and she did not have a severe reaction. She does not believe she is allergic, she just thinks she just experienced side effects. Other Reaction(s): Unknown Reaction Latex Rash Other Reaction(s): Rash Patient states [...] just thinks she just experienced side effects. PROBLEMS Active Ambulatory Problems Diagnosis Date Noted Autoimmune disease ([facility]) 06/01/2023 Fibromyalgia 06/01/2023 Autonomic dysfunction 06/01/2023 Dizziness 06/01/2023 Tachycardia 06/01/2023 Nonintractable episodic headache 06/01/2023 CHRISTIAN positive 06/15/2022 Anemia, unspecified 03/11/2022 Anxiety 06/09/2023 Ataxia 05/31/2014 Bilateral leg weakness 03/05/2021 Bilateral wrist pain 02/04/2023 Cervical radiculopathy 07/06/2023 Lumbosacral radiculopathy at L5 07/06/2023 Chronic fatigue and malaise 06/10/2023 Chronic laryngopharyngitis 07/06/2023 Chronic pain of toes of both feet 03/05/2021 Current smoker 07/06/2023 Tobacco use disorder 07/06/2023 Cytomegalovirus infection (HCC) ([facility]) 07/06/2023 Depression, recurrent ([facility]) 06/09/2023 Discoid lupus erythematosus ([facility]) 02/14/2022 Disturbance of skin sensation 07/06/2023 Elevated sed rate 03/05/2021 High total serum IgM 03/05/2021 Enthesopathy of hip region 07/06/2023 Essential hypertension ([facility]) 06/09/2023 Excessive and frequent menstruation with irregular cycle 09/24/2022 Family history of Crohn's disease 03/05/2021 Hair loss 03/05/2021 Hyperlipidemia ([facility]) 05/31/2014 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 02/04/2023 Long-term use of high-risk medication 06/15/2022 Long-term use of Plaquenil 03/05/2021 LPRD (laryngopharyngeal reflux disease) 07/06/2023 Megaloblastic anemia due to vitamin B12 deficiency 03/04/2022 Myalgia 07/06/2023 Obesity, Class III, BMI 40-49.9 (morbid obesity) ([facility]) 09/07/2022 Obstructive sleep apnea syndrome 05/20/2022 Oral lesion 07/06/2023 Pain, hip 07/06/2023 Rash and nonspecific skin eruption 03/05/2021 Steroid-induced osteoporosis (CMS/HCC) 02/04/2023 Somnolence, daytime 05/20/2022 Secondary osteoarthritis of multiple sites 03/05/2021 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 02/04/2023 Swelling of lymph nodes 03/05/2021 Vitamin D deficiency 03/06/2021 Vitamin B12 deficiency 05/31/2014 Pure hypercholesterolemia, unspecified (CMS/HCC) 08/10/2023 Hoarse 08/10/2023 Thyroid nodule (CMS/HCC) 08/10/2023 Shortness of breath 07/13/2023 Paroxysmal supraventricular tachycardia (CMS/[facility]) 07/13/2023 PAC (premature atrial contraction) 07/13/2023 Degenerative disc disease, lumbar 11/08/2023 Paresthesias 11/08/2023 Nipple discharge 11/15/2023 Irregular periods/menstrual cycles 11/15/2023 Facet arthritis of lumbar region 12/15/2023 Resolved Ambulatory Problems Diagnosis Date Noted No Resolved Ambulatory Problems Past Medical History: Diagnosis Date Cervical lymphadenopathy COVID-19 vaccine administered Difficulty walking Fatigue Fibromyalgia, primary GERD (gastroesophageal reflux disease) History of removal of cyst 2012 HTN (hypertension) (CMS/HCC) Hx of abnormal cervical Pap smear Insulin resistance Laryngopharyngeal reflux disease Lupus Numbness Oral thrush Prediabetes Sleep apnea Weakness of limb HISTORY PAST MEDICAL HISTORY SOCIAL HISTORY Past Medical History: Diagnosis Date Anxiety Cervical lymphadenopathy Chronic laryngopharyngitis COVID-19 vaccine administered x 2 ([facility]) Difficulty walking Fatigue Fibromyalgia, primary GERD (gastroesophageal reflux disease) History of removal of cyst 2012 tailbone x2 HTN (hypertension) (CMS/[facility]) Hx of abnormal cervical Pap smear Hyperlipidemia (CMS/[facility]) Insulin resistance Laryngopharyngeal reflux disease Lupus Numbness Oral lesion Oral thrush Prediabetes Sleep apnea Tachycardia Weakness of limb Social History Tobacco Use Smoking status: Every Day Current packs/day: 1.00 Average packs/day: 1 pack/day for 28.8 years (28.8 ttl pk-yrs) Types: Cigarettes Start date: 05/24/1995 Smokeless tobacco: Never Tobacco comments: Current smoker, everyday, 11-20 cigarettes/day Vaping Use Vaping status: Never Used Substance Use Topics Alcohol use: Never Comment: Caffeine intake : > 4 cups per day Drug use: Never FAMILY HISTORY Family History Problem Relation Name Age of Onset Crohn's disease Mother Nieves Thyroid disease Mother Nieves Stomach cancer Father Micheal Cancer Father Micheal No Known Problems Sister 1 No Known Problems Daughter Lung disease Son Other (lung issue) Child 1 son with lung issue, 3 daughters Diabetes Maternal Grandmother Clelaura Heart failure Maternal Grandmother Clelaura Rheum arthritis Maternal Grandmother Clelaura SURGICAL HISTORY Past Surgical History: Procedure Laterality Date CYST REMOVAL DILATION AND CURETTAGE LYMPH NODE BIOPSY 2020 OTHER SURGICAL HISTORY cervical cryo VAGINAL DELIVERY REVIEW OF SYSTEMS Review of Systems: Review of Systems Constitutional: Negative. HENT: Negative. Eyes: Negative. Breasts: Positive for breast discharge. Respiratory: Negative. Cardiovascular: Negative. Gastrointestinal: Negative. Genitourinary: Negative. Musculoskeletal: Negative. Skin: Negative. Neurological: Negative. All other systems reviewed and are negative. Hematological: Negative. Endocrine: Negative. Allergic/Immunologic: Negative. OBJECTIVE Objective: Physical Exam Constitutional: Appearance: Normal appearance. She is well-developed. Genitourinary: Breasts: Breasts are soft. Right: Nipple discharge and tenderness present. Left: Nipple discharge and tenderness present. Cardiovascular: Rate and Rhythm: Normal rate and regular rhythm. Pulmonary: Effort: Pulmonary effort is normal. Breath sounds: Normal breath sounds. Abdominal: General: Bowel sounds are normal. There is no distension. Palpations: Abdomen is soft. Tenderness: There is no abdominal tenderness. There is no guarding or rebound. Musculoskeletal: General: No swelling. Normal range of motion. Right lower leg: No edema. Left lower leg: No edema. Neurological: Mental Status: She is alert and oriented to person, place, and time. Skin: General: Skin is warm and dry. Psychiatric: Mood and Affect: Mood normal. Behavior: Behavior normal. Vitals and nursing note reviewed. Exam conducted with a policy writer sales present. Vitals: Estimated body mass index is 43.67 kg/m as calculated from the following: Height as of 08/10/23: 5' 7 . Weight as of this encounter: 278 lb 12.8 oz. BP: 120/70 Patient's last menstrual period was 03/02/2024. ASSESSMENT & PLAN ICD-10-CM 1. Nipple discharge N64.52 Patient presents today for nipple discharge and discussed 2nd opinion. Patient voiced that she has discussed with Infectious Disease with Dr. Kelsey and Specialist at [facility]. Patient voiced that Dr. Kelsey recommended surgery, but patient feels that maybe excessive. Specialist at [facility] suggested monitoring. Patient has had mammogram. Patient does not put anything on her breast. Ruled out Mondor's Breast concerns. Discussed Honeydew Oil at night and Vitamin E lotion. Patient voiced that her breast feel brambila and heavier. Discussed growth of breast and proper support. Breast are not hot nor warm to the touch. Patient to obtain bilateral breast ultrasound. Patient to follow up with routine annual appointment and as needed. Documented by Alicia Christine LPN on behalf of: Luan Valdivia DO documented in this encounter [facility] 03-13-2024 Note [facility] 03-08-2024 Note [facility] Cardiology Clinic Note Chief Complaint: New patient here to establish care. Ref from Gay Enciso CNP for hypertension. Former [facility] cardiology patient. Had echo a few weeks ago at [facility]. Says her BP is very low while supine and then goes high when she stands. C/o chest pain but she attributes this to GI issues. Smokes 1/2-1 PPD. C/o ANNE. Gets lightheaded at times but denies syncope. HPI: Jones Haley is a 43 y.o. female With a history of hypertension, morbid obesity, questionable paroxysmal supraventricular tachycardia, lupus and joint inflammation here due to concerns regarding recent echocardiogram Apparently, the patient read hyperdynamic and was concerned. She has a plethora of symptoms that have been ongoing for the past 2 to 3 years but have worsened over the past several months. 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 She has undergone a Holter monitor, she has had echocardiograms, she has had a stress test and a cardiac catheterization. No structural heart disease has been found. She complains of intermittent palpitations are worse if she is sitting or standing. No significant lightheadedness or dizziness. No syncope. She states that her blood pressure is normal or low when she is lying down and increases when she sits or stands. Pertinently, she has significant joint inflammation and is on prednisone daily and has been so for the past 2 years. Social history: She drinks a pot of coffee a day, she drinks alcohol socially. She smokes a half a pack to a pack a day. She denies excessive drugs. Family history: No premature coronary artery disease in any first-degree relatives. Cardiology ROS: Review of Systems Cardiovascular: Positive for chest pain, dyspnea on exertion, leg swelling (intermittent, resolves by morning) and palpitations ( pounding ). Neurological: Positive for dizziness and light-headedness. All other systems reviewed and are negative. Past Medical History She has no past medical history on file. Surgical History She has no past surgical history on file. Social History She has no history on file for tobacco use, alcohol use, and drug use. Family History No family history on file. Allergies Patient has no allergy information on record. Medications No current outpatient medications on file. Last Recorded Vitals BP 115/82 (BP Location: Left wrist, Patient Position: Standing) Pulse 74 Ht 1.702 m (5' 7 ) Wt 125 kg (275 lb) SpO2 98% BMI 43.07 kg/m??? Physical Examination: GENERAL: alert and oriented x3, well developed, in no acute distress. HEAD: atraumatic, normocephalic. EYES: BEAN, EOMI. NECK: trachea midline, no JVD present, no carotid bruits present. CARDIAC: S1, S2 present. RRR. No murmur, rubs, or gallops. RESPIRATORY: CTAB, no increased effort of breathing, no rales, rhonchi, or wheezing. ABDOMEN: soft, nontender, nondistended. EXTREMITIES: no lower extremity edema, peripheral pulses are 2+ bilaterally. No rash/skin discoloration present. NEURO: strength/sensation equal and symmetric in bilateral upper and lower extremities. PSYCH: appropriate mood, affect, and judgement. Investigations: Echocardiogram: Global left ventricular systolic function is hyperdynamic; visually estimated ejection fraction is 65 to 70% Normal right ventricular size and systolic function Borderline left ventricular atrophy Normal diastolic function The left atrium is normal in size No significant valvular abnormalities Anterior free space; trivial effusion versus fat pad Assessment: 1. Palpitations 2. Mixed hyperlipidemia 3. Essential hypertension 4. Obstructive sleep apnea syndrome 5. Obesity, Class III, BMI 40-49.9 (morbid obesity) 6. Current smoker 7. Connective tissue disease; lupus /joint inflammation on chronic prednisone 8. Lumbosacral radiculopathy Plan: I reassured the patient that the hyperdynamic left ventricular systolic function is not concerning; this may represent dehydration, elevated blood pressure at the time and other potential etiologies. It sounds like pain is a driving force for elevated blood pressure particular when she sits or stands. Given her prior testing including stress test and a cardiac catheterization, I would not recommend further cardiac testing I have recommended cutting down on any stimulants including caffeinated beverages, alcohol, [id number] Sudafed etc. If her symptoms of palpitations persist, particular if she has lightheadedness or dizziness, head upright tilt table test may be reasonable to evaluate for possible dysautonomia's I discussed the side effects and risks of long-term steroid therapy and recommended she discuss with her hydrological technical officer weaning off soon as possible Given her morbid obesity, her current symptoms and comorbidities are likely related to excessive weight: I encouraged physical activity, attempts to lose weigh (more content not included)... [facility] 03-07-2024 Note [facility] 03-07-2024 History of Present illness Narrative CMN RECEIVED BY [employer] VIA FAX, COMPLETED, AND PLACED IN PROVIDER MAILBOX FOR SIGNATURE Lee Friedman Coordinator III 03.07.2024 [employer] SENDING CMN: Josh SIGNED AND DATED CMN, FAXED TO DME & CONFIRMATION PAGE RECEIVED: 03.07.2024 documented in this encounter [facility] 02-22-2024 Telephone encounter Note Received a call from PT transferred over from the scheduling line for education/questions. Answered PT question that I can see her referral is for Eds, and set appropriate expectations for her visit. She expressed understanding. We reviewed that her son has had negative testing for Marfans syndrome, and her daughter is now following with cardiology due to her aortic valve being too large and passing out frequently. Discussed that if PT is more concerned for her children, it may be most beneficial to have them seen by genetics first. 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 Answered PT question that if she would like for herself to be evaluated for CTD, this would need to be an in-person visit, as was discussed with her previously in 2021. PT stated that she is 'too terrified to drive that far to [place] Further reviewed the reasoning behind the visit needing to be in-person and stated that I would have our business intelligence reporting analyst reach out if she is willing to accept an in-person appt. PT requested that I review with our clinical team if this can be a VV before she schedules. I let her know I will do so and be in touch. She had no further questions at this time. Luda Vargas Genetic Counseling Perioperative Tech Additional: see FYIs for documentation of scheduling and cancellation with genetics in 2021 [facility] 02-22-2024 Miscellaneous Notes Received a call from PT transferred over from the scheduling line for education/questions. Answered PT question that I can see her referral is for Eds, and set appropriate expectations for her visit. She expressed understanding. We reviewed that her son has had negative testing for Marfans syndrome, and her daughter is now following with cardiology due to her aortic valve being too large and passing out frequently. Discussed that if PT is more concerned for her children, it may be most beneficial to have them seen by genetics first. 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 Answered PT question that if she would like for herself to be evaluated for CTD, this would need to be an in-person visit, as was discussed with her previously in 2021. PT stated that she is 'too terrified to drive that far to [place].' Further reviewed the reasoning behind the visit needing to be in-person and stated that I would have our business intelligence reporting analyst reach out if she is willing to accept an in-person appt. PT requested that I review with our clinical team if this can be a VV before she schedules. I let her know I will do so and be in touch. She had no further questions at this time. Luda Vargas Genetic Counseling Perioperative Tech Additional: see FYIs for documentation of scheduling and cancellation with genetics in 2021 documented in this encounter [facility] 02-21-2024 Nurse Note Patient Identification confirmed: yes. Injection given and documented on MAR per provider order. Kenzie Shannon MA [facility] 02-21-2024 Nurse Note Patient Identification confirmed: yes. Injection given and documented on MAR per provider order. Kenzie Shannon MA documented in this encounter [facility] 02-18-2024 Telephone encounter Note Patient is calling the [place] office requesting Dr. Ni to place a referral to genetics. Please advise. [facility] 02-18-2024 Miscellaneous Notes Patient is calling the [place] office requesting Dr. Ni to place a referral to genetics. Please advise. documented in this encounter [facility] 02-15-2024 Telephone encounter Note PAP ORDER FAXED TO [facility] WITH [employer]OGRAPH[employer], OFFICE NOTES WITH CONFIRMATON NOTED. [facility] 02-15-2024 Miscellaneous Notes PAP ORDER FAXED TO [facility] WITH DEMOGRAPH[employer], OFFICE NOTES WITH CONFIRMATON NOTED. documented in this encounter [facility] 02-14-2024 History of Present illness Narrative [facility] Refill Assessment Medication(s): [...] been reviewed prior to dispensing the medication. Camp Maintenance Supervisor Assessment Patient confirmed: Yes Med/dose confirmed: Yes Missed doses: No Estimated days supply on hand: 1 Next cycle/dose due: 02/17/24 Copay amount: 0 Payment confirmed: Yes Delivery method: FedEx Signature required: Waived on patient request Delivery address: [address] [place] [address] [place]. [place], [place] Delivery date: 02/17/24 Questions or concerns [...] facility-administered medications on file prior to visit. [facility] CLINICAL ASSESSMENT - [...] efficacy and/or no longer tolerated. [facility] [phone] documented in this encounter [facility] 02-14-2024 Note [facility] 02-14-2024 History of Present illness Narrative Benefits investigation was conducted, indicating that a re-authorization is required for [employer]. PA was initiated and pending review. Plan Name: Keesha CoverMyMeds Balderrama: [id number] Luda Conde CPhT [facility] [phone] documented in this encounter [facility] 02-14-2024 Note [facility] 02-14-2024 Note [facility] 02-14-2024 Instructions Timmy Heck APRN.GEAR KEEPER - 02/14/2024 8:03 AM EDT Images from the original note were not included. Your most recent body mass index (BMI) that we have on record is 43.08 kg/m2. Obstructive sleep apnea (JOSE RAFAEL) worsens with an increase in weight; reduction in weight may improve or resolve your JOSE RAFAEL. If you are not already seeking treatment, there are resources available at the [facility] such as a nutrition consultation or referral to weight management programs at our [facility]. Please let us know if we can [...] and out of pocket expenses. DME: Josh [phone] - Remember to clean your mask and equipment regularly, as directed. - Avoid use of ozone sandwich hand, SoClean devices, or UV cleaning devices - [...] the central scheduling system for the [facility] at [phone]. [facility] now offers direct scheduling for patients to schedule appointments. Virtual visits are also available. Call the office at [phone], option #5 for questions. documented in this encounter [facility] 02-14-2024 History of Present illness Narrative Images from the original note were not included. [facility] Virtual Visit Follow up/ Established patient visit Date of last visit : 07/27/2022 I have communicated my name and active licensure. The patient's identity and physical location were verified at the time of this visit. Either the patient or their legal call center representative has been informed of the risks [...] Return Visit in 6 months. Timmy Heck APRN.GEAR KEEPER Interval history : Here for follow up for sleep apnea management. SLEEP APNEA Sleep apnea type : JOSE RAFAEL Most Recent Apnea-Hypopnea Index (AHI): 5.3 (HSAT scored 4 %) Treatment : PAP therapy DME: Josh [place] fax: [phone] DME ph: [phone] PAP History: Current PAP settin-15 cm H2O. [...] are sorted in reverse-chronological order 04/12/2022 07/23/2022 [place] Sleepiness Scale Score 4 (No clinically significant [...] - Follow up 12 months. Timmy Heck APRN.GEAR KEEPER documented in this encounter [facility] 02-14-2024 Note [facility] 01-27-2024 Note HNO ID: [id number] Author: ALHAJI HEAD, DO Service: ? Author Type: Physician Type: Progress Notes Filed: 01/27/2024 16:54 Note Text: VIRTUAL VISIT PROGRESS NOTE This is a virtual visit using [employer] Video Visit. It required patient-provider interaction for the medical decision making as documented below. I have communicated my name and active licensure. The patient's identity and physical location were verified at the time of this visit. Either the patient or their legal call center representative has been informed of the risks [...] of green drainage. She saw her OB/ blender. This was thought to be secondary to [...] D deficiency PAST SURGICAL HISTORY 2011 and 2013: PAST SURGICAL HISTORY OF Comment: pilonidal cyst : PAST SURGICAL HISTORY OF Comment: D AND C : PAST SURGICAL HISTORY OF Comment: [...] and NO DYSPHAG (more content not included)... [facility] 01-27-2024 History of Present illness Narrative Images from the original note were not included. VIRTUAL VISIT PROGRESS NOTE This is a virtual visit using [employer] Video Visit. It required patient-provider interaction for the medical decision making as documented below. I have communicated my name and active licensure. The patient's identity and physical location were verified at the time of this visit. Either the patient or their legal call center representative has been informed of the risks [...] of green drainage. She saw her OB/ blender. This was thought to be secondary to [...] chest 12/10: reported as ASSESSMENT/ PLAN: Jones Haely is a 43 year old female with [...] Alhaji Head DO documented in this encounter [facility] 01-25-2024 Nurse Note Patient Identification confirmed: yes. Injection given and documented on MAR per provider order. Margret Cuenca MA [facility] 01-25-2024 Nurse Note Patient Identification confirmed: yes. Injection given and documented on MAR per provider order. Margret Cuenca MA documented in this encounter [facility] 01-18-2024 History of Present illness Narrative [facility] Assessment Medication(s): Tootielysta Patient's current medication list and adherence status [...] outcomes. Aidee Quintanilla, RolandD Clinical Pharmacist, [employer] [facility] ; Pool: [facility] Pool #: [id number] Camp Maintenance Supervisor Assessment Patient confirmed: Yes Med/dose confirmed: Yes Supplies needed: No supplies needed Missed doses: No Estimated days supply on hand: (At least 1 dose) Next cycle/dose due: 01/20/24 Copay amount: 0 Payment confirmed: Yes Delivery method: FedEx Signature required: Waived on patient request Delivery address: [address] [place] [address] Delivery date: 01/21/24 Questions or concerns for [...] facility-administered medications on file prior to visit. [facility] CLINICAL ASSESSMENT - [...] no longer tolerated. Arianne Mckinley CPhT, Inflammatory/Allergy [facility] [phone] documented in this encounter [facility] 01-18-2024 Note [facility] 01-12-2024 Telephone encounter Note Pt has been notified via NAVX. [facility] 01-12-2024 Miscellaneous Notes Pt has been notified via NAVX. Please call patient. 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 [...] above. Please process accordingly. Lynne Ni MD [facility] 01-12-2024 Telephone encounter Note Images from the [...] Lynne Ni MD Assoc. 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 [facility] 12-30-2023 Miscellaneous Notes Spoke to pt aware [...] b12 every month documented in this encounter [facility] 12-30-2023 Telephone encounter Note Please Call patient [...] likely reactive, continue vitamin b12 every month [facility] 12-27-2023 Telephone encounter Note Pt informed of MM message and denies any questions, needs or concerns at this time. Appointments verified. Enma Hamm RN [facility] 12-27-2023 Miscellaneous Notes Pt informed of MM message and denies any questions, needs or concerns at this time. Appointments verified. Enma Hamm RN Please call and inform the patient that I reviewed her [facility] records and there is no evidence of a blood clot and she does not need to be on blood thinners. Neda Narayanan PA-C documented in this encounter [facility] 12-27-2023 Telephone encounter Note Please call and inform the patient that I reviewed her [facility] records and there is no evidence of a blood clot and she does not need to be on blood thinners. Neda Narayanan PA-C [facility] Work Phone: 12-27-2023 Nurse Note Patient Identification confirmed: yes. Injection given and documented on MAR per provider order. Margret Cuenca MA [facility] 12-27-2023 Nurse Note Patient Identification confirmed: yes. Injection given and documented on MAR per provider order. Margret Cuenca MA documented in this encounter [facility] 12-27-2023 History of Present illness Narrative Images from the original note were not included. NAME: lazarofrancisco javierJones [facility] NO.: [id number] DATE OF SERVICE: December 27, 2023 (Liz) [...] labs 1 week before. Request records from [facility] from [facility]/elevated d-dimer Frequent infections and low IGG level-discuss with dr. Cuevas HPI: CASE HISTORY: Reverse Chronological Order Currently [...] lower lip done 2 days ago at [facility] - awaiting results. B12 [...] She follows with multiple doctors including and manuscripts curator, hydrological technical officer, board handler and PCP. She has been told they [...] : PAST SURGICAL HISTORY OF Comment: ablation Social [...] which included preparing to see the patient, lquv-lq-kyyq patient care, completing clinical documentation, obtaining and/or reviewing separately obtained history, performing a medically appropriate examination, counseling and educating the patient/family/caregiver, ordering medications, tests, or procedures, communicating with other HCPs (not separately reported), independently interpreting results (not separately reported), communicating results to the patient/family/caregiver, and care coordination (not separately reported). Neda Narayanan PA-C Hematology and Oncology Services Provided at: [facility], [place], [place] CC: Madelaine Ferris MD [address] [facility] [id number] documented in this encounter [facility] 12-27-2023 Note [facility] 12-13-2023 History of Present illness Narrative [facility] Medication(s): [...] laboratory parameters, disease state markers and outcomes. Camp Maintenance Supervisor Assessment Patient confirmed: Yes Med/dose confirmed: Yes Missed doses: No Estimated days supply on hand: 1 Next cycle/dose due: 12/16/23 Copay amount: 0 Payment confirmed: Yes Delivery method: FedEx Signature required: Waived on patient request Delivery address: [address] [place] [address] Delivery date: 12/17/23 Questions or concerns for [...] facility-administered medications on file prior to visit. [facility] CLINICAL ASSESSMENT - INFLAMMATORY CONDITIONS V6: Assessment to use: Refill [facility] VACCINE INFORMATION [facility] TREATMENT PLAN INFORMATION Luda Conde CPhT [facility] [phone] documented in this encounter [facility] 12-13-2023 Note [facility] 11-29-2023 Nurse Note Patient Identification confirmed: yes. Injection given and documented on MAR per provider order. Stacy Gutiérrez MA [facility] 11-29-2023 Nurse Note Patient Identification confirmed: yes. Injection given and documented on MAR per provider order. Stacy Gutiérrez MA documented in this encounter [facility] 11-26-2023 Telephone encounter Note Please sign pended script Maryam Schneider RN [facility] 11-26-2023 Miscellaneous Notes Please sign pended script Maryam Schneider RN documented in this encounter [facility] 11-15-2023 History of Present illness Narrative [facility] Assessment Medication(s): [...] laboratory parameters, disease state markers and outcomes. Camp Maintenance Supervisor Assessment Patient confirmed: Yes Med/dose confirmed: Yes Missed doses: No Estimated days supply on hand: 1 Next cycle/dose due: 11/18/23 Copay amount: 0 Payment confirmed: Yes Delivery method: FedEx Signature required: Waived on patient request Delivery address: [address] [place] [address] Delivery date: 11/17/23 Questions or concerns for [...] facility-administered medications on file prior to visit. [facility] Visit Assessment - Inflammatory Conditions: [...] Yes Aidee Quintanilla PharmD Clinical Pharmacist, Biologics [facility] ; Pool: [facility] Pool #: [id number] documented in this encounter [facility] 11-15-2023 Note [facility] 11-11-2023 Telephone encounter Note Notify patient medication sent as requested Thank you. Patient's request for medication is as follows: Requested Prescriptions Pending Prescriptions Disp Refills azaTHIOprine (IMURAN) 50 mg tablet 270 tablet 1 Sig: TAKE 3 TABLETS BY MOUTH DAILY WITH FOOD. HOLD IF ON ANTIBIOTICS OR ILL. Prescription(s) as above. Please process accordingly. Lynne Ni MD [facility] 11-11-2023 Miscellaneous Notes Notify patient medication sent [...] total serum IgM documented in this encounter [facility] 11-11-2023 Telephone encounter Note Images from the [...] vitamin B12 deficiency, High total serum IgM [facility] 10-28-2023 Telephone encounter Note Pt read NAVX message. [facility] 10-28-2023 Miscellaneous Notes Pt read NAVX message. Please call patient. Thank you for [...] Warm regards, :) documented in this encounter [facility] 10-28-2023 Telephone encounter Note Please call patient. [...] you feel better soon! Dr.Tsai Harshal :) [facility] 10-27-2023 Nurse Note Patient Identification confirmed: yes. Injection given and documented on JUL per provider order. Margret Cuenca MA [facility] 10-27-2023 Nurse Note Patient Identification confirmed: yes. Injection given and documented on JUL per provider order. Margret Cuenca MA documented in this encounter [facility] 10-12-2023 Note [facility] 10-05-2023 History of Present illness Narrative THIS IS [...] visit. Either the patient or their legal call center representative has been informed of the risks [...] had 3good days/thinking benlysta working. Reports pain /10. Has minimal AM stiffness. Feels safe at [...] measures, may consider osteoporosis treatment if on retirement steroids/abnormal bmd, take vitamin D script if [...] neurology/on metoprolol for POTs, avoid aggravating triggers, retirement pain recommendations per primary care provider/pain clinic/patient [...] neurology/on metoprolol for POTs, avoid aggravating triggers, retirement pain recommendations per primary care provider/pain clinic/patient [...] Due for eye exam. Labs sent to [facility]/completed in 06/2021 (no results faxed to office, [...] dexamethasone Reports pain -11/30 No falls/fx/trauma/illness/oral sores/rash/hairloss/jaw pain/dysphagia/epistaxis/hemoptysis . No adverse effects with meds. No other complaints. Patient denies fever, chills, cp, dyspnea, nausea, vomiting, night sweats, scalp tenderness, visual changes, hernandez, bowel/bladder changes, weight changes or other complaints. COMPLETE REVIEW OF SYSTEMS: RHEUM. ROS: Joint pain: yes axilla, low back, legs, feet, flank pain Joint swelling: no Am stiffness: yes all day Low back pain: yes H/o precedent/frequent infection(s): as above Enthesopathy/Texline's/heel/plantar tenderness: hands random painful/tingling Skin thickening, psoriasis, photosensitivity, purpura: as above Alpecia, patchy: yes Eye inflammation: glasses GI problems-diarrhea/bleeding/IBD/Glut en intolerence/Dysphagia: as above Fatigue: yes, sleeps 10 [...] COVID-19 original vaccine, age 12+ yr, monovalent (JoopLoop - PURPLE TOP) 09/28/2020 10/19/2020 05/26/2021 COVID-19 vaccine, age 12+ yr, 2022- season (JoopLoop) 02/23/2023 COVID-19 vaccine, age 12+ yr, bivalent (JoopLoop) 02/08/2022 Pneumovax no Flu shot no Tetanus [...] (33);NL cbc, cmp, negative hla b27; Outside [place] 06/2021 low vitamin D 16, vitamin b12-307;high [...] NECK: no visible thyromegaly or LAD. EXTREMITIES:No clubbing,discoloration,sclerodactyl y, periungual erythema, digital ulcers, nail pitting, edema, [...] see GI and Infectious disease soon. Thinks [facility] made her have diarrhea. 08/31/23 high wbc [...] measures, may consider osteoporosis treatment if on retirement steroids/abnormal bmd, take vitamin D script once [...] neurology/on metoprolol for POTs, avoid aggravating triggers, ad terminal makeup operator pain recommendations per primary care provider/pain [...] (200mg) daily with a meal Please see top tile decorator every 6-12months while on Hydroxychloroquine. Start 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 [...] touching your toes, sit-ups, using row machine ad terminal makeup operator pain recommendations per primary care provider/pain [...] video & audio (virtual) or phone or itjs-rv-pfaq patient care, completing clinical documentation, obtaining and/or [...] Workers' Compensation? No Do you need an translator/interpreter? No [facility] MYCHART ZOOM MESSAGE Question 2023 11:04 [...] my provider understand my health Strongly Agree MYC DOCUMENT/IMAGE UPLOAD Question 2023 11:10 PM EDT [...] (WITHIN +/- 5) documented in this encounter [facility] 10-05-2023 Note [facility] 09-30-2023 Nurse Note Patient Identification confirmed: yes. Injection given and documented on JUL per provider order. Renea Schneider MA [facility] 09-22-2023 Evaluation note Authored September 22, 2023 [...] switch omeprazole to pantoprazole and monitor symptoms [facility] Work Phone: 1(285) 123-438404-22-2024 [facility] Instructions* Patient Instructions* Jose Najera MD - 09/09/2023 4:47 PM EDT Follow up in 13 Weeks - labs 1 week before. B12 shot every 4 weeks. Continue Folic acid. [facility] History of Present illness Narrative* Jose Najera MD - 09/09/2023 4:30 PM EDT NAME: Jones Haley [facility] NO.: [id number] DATE OF SERVICE: September 09, 2023 (chyna) Some elements in this clinic note that are critical to medical decision making have been carefully reviewed and included from a prior clinic note dated: June 10, 2023 (Marquis) Referring Provider: Dr. Madelaine Ferris Additional Clinicians involved in Jones Haley's care: VIRTUAL VISIT PROGRESS NOTE This is a virtual visit using [employer] Video Call. It required patient- provider interaction for the medical decision making as documented below. I have communicated my name and active licensure. The patient's identity and physical location wereverified at the time of this visit. Either the patient or their legal call center representative has been informed of the risks [...] lower lip done 2 days ago at [facility] - awaiting results. B12 [...] injections. Shefollows with multiple doctors including and manuscripts curator, hydrological technical officer, board handler and PCP. She has been told they [...] ECOG PERFORMANCE STATUS: 0 PHYSICAL EXAMINATION: Vitals: [facility] 05/18/2022 There is no height or weight [...] CPE Hematology and Oncology Services Provided at: [place], [place] CC: Madelaine Ferris MD [address] [address] [facility] Miscellaneous Notes* Telephone Encounter - Maynor Bryson MA - 09/06/2023 7:21 AM EDT patient has viewed the NAVX message per [employer]. * Telephone Encounter - Lynne Ni MD - 09/04/2023 6:30 PM EDT Please Call patient if [employer] note not read to review results/released to [...] accordingly. Lynne Ni MD documented in this [facility]04-09-2024 Nurse Note* Margret Cuenca MA - 08/31/2023 10:35 AM EDT Patient Identification confirmed: yes. Injection given and documented on JUL per provider order. Margret Cuenca MA documented in this [facility]04-01-2024 Nurse Note* Renea Schneider MA - 09/30/2023 10:53 AM EDT Patient Identification confirmed: yes. Injection given and documented on JUL per provider order. Renea Schneider MA documented in this [facility]03-21-2024 [facility]03-14-2024 Nurse Note* Margret Cuenca - 08/05/2023 11:16 AM EDT Patient Identification confirmed: yes. Injection given and documented on JUL per provider order. Margret Cuenca documented in this [facility]02-20-2024 [facility]02-20-2024 Nurse Note* Margret Cuenca - 07/13/2023 12:01 PM EST Patient Identification confirmed: yes. Injection given and documented on JUL per provider order. Margret Cuenca documented in this [facility]02-20-2024 History of Present illness Narrative* Lois Hlom MD - 07/13/2023 9:30 AM EST Cardiology Consultation- New Consult Reason for referral: Palpitations HPI: Jones Haley is a 42 y.o. female who is being seen in the office for the first time to assess symptoms of chest tightness and palpitation. She was diagnosed with systemic lupus several years ago and is being cared for at the [facility] utilizing steroids, Plaquenil and injectable medic ation(Benlystal). The patient record indicating having had cardiac catheterization in [place] 3 years ago which was normal. I have the report available for my review. [facility] [...] lupus being treated by rheumatology at the [facility] on steroids, Plaquenil and monoclonal [...] , Rfl: ergocalciferol (Vitamin D-2) 1.25 MG (22223 UT) capsule, Take 1 capsule (50,000 Units) [...] By signing my name below, abril Dorantes , Scribdane attest that this documentation has been prepared under the direction and in the presence of Lois Hlom MD. Provider Attestation - Scribe documentation All medical record entries made by the Scribe were at my direction and personally dictated by me. Ihave reviewed the chart and agree that the record accurately reflects my personal performance of the history, physical exam, discussion and plan. [facility] Work Phone: 1(652) 360-182502-20-2024 Instructions* Patient Instructions* Lila Tejeda LPN - [...] in this [facility]St[facility] Work Phone: 1(854) 865-379502-13-2024 History of Present illness Narrative* Juan Luis [...] , Rfl: ergocalciferol (Vitamin D2) 1.25 MG (17378 UT) capsule, Take 50,000 Units by mouth [...] Chronic laryngopharyngitis COVID-19 vaccine administered x 2 ([facility]) History of removal of cyst 2013 tailbone [...] reflexes: Stu's absent. Ankle clonus absent. Coordination Bxpokj-ns-pqcy, rapid alternating movements and bskm-kx-nybd normal bilaterally without dysmetria. Gait Normal casual, toe, heel and tandem gait. Romberg is absent. Assessment/Plan Diagnoses and all orders for this visit: Autoimmune disease ([facility]) - Protein electrophoresis, serum; Future [...] Lyrica 100 mg TID. She is on kfqxlucdsv53 mg once daily. Increase prednisone 10 mg BID for 10 days. [address] [id number] [facility]01-18-2024 [facility]01-17-[facility] History of Present illness Narrative* Michelle Britton, 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 - 06/09/2023 8:30 AM EST Jones Haley is a 42 y.o. female that presents to the office today for new patient evaluation asself referral for palpitations and elevated heart rates. She has a PMH of HTN, HLD, tachycardia, anemia, JOSE RAFAEL with CPAP compliance, lupus, autonomic dysfunction, arthritis, chronic back pain. She has undergone cardiac workup in the past in [place] as noted below. She also states that she follows withNeurology for possible POTS syndrome. Admits to daily tobacco use, 1 pack of cigarettes per day. Denies vaping, ETOH, recreational drugs. Admits to drinking approximately 1 pot of coffee per day. Denies daily exercise. 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 Family history negative [...] Anemia, unspecified Anxiety Autonomic dysfunction Depression, recurrent ([facility]) Discoid lupus erythematosus Chronic bilateral low back pain with bilateral sciatica Hyperlipidemia Obesity, Class III, BMI 40-49.9 (morbid obesity) ([facility]) Obstructive sleep apnea syndrome Arthritis [...] , Rfl: ergocalciferol (Vitamin D-2) 1.25 MG (74330 UT) capsule, Take 1 capsule (50,000 Units) [...] Anemia, unspecified Anxiety Autonomic dysfunction Depression, recurrent ([facility]) Discoid lupus erythematosus Chronic bilateral low back pain with bilateral sciatica Hyperlipidemia Obesity, Class III, BMI 40-49.9 (morbid obesity) ([facility]) Obstructive sleep apnea syndrome Arthritis Tachycardia Vitamin [...] to prepare this document. documented in this [facility] Work Phone: 1(706) 172-820901-09-2024 NoteGrant [facility]01-03-2024 Instructions* Patient Instructions* Chirstie Phan MD - 05/26/2023 5:43 PM EST Images from the original note were not included. https://Enbase/tofu-bolognese/ https://nutritionstudies.org/dzk-ap-iyyhyhidp-zssxmsfh-ck-enttx-a-fzzcv-qqbv-randee ip-nkwhu-pixvbnast/ https://www.[employer]/blog/plantbasedkids https://Ak?Lex/svhfz-tejzo-tzhi-for-kids/ https://Zeetl/jdd-ot-btejcvxdki-xdin-xvqk-rl-w-aftih-wlplh-diet/ WHAT TO EAT? Breakfast: Overnight Oats Base ingredients: 1/3 cup rolled oats, 1/3 cup plain almond milk, 1tsp kyle seeds. Optional add-ins: cinnamon, flax seeds, honey or maple syrup, nut butter, chopped nuts. Toppings: Any fresh fruit chopped. Mix together and place in refrigerator. Can make 5 at a time for the whole week. Homemade fresh oatmeal. Can also make in the crockpot. Chadian muffin/almond butter topped with fresh berries Chadian muffin, cooked egg/egg white, tomato, thin slice papua new guinean cheese Fresh berries, hard boiled egg, whole wheat toast Plain yogurt topped with berries, unsalted nuts, drizzle of honey Whole grain toast/Chadian muffin topped with mashed avocado and tomatoes Lunch: Dinner leftovers packed in Tupperware, side of fruit Salad mixture topped with a protein (chick breast/tuna/hard boiled egg/beans), dressing and side offruit Dinner - Refer to plate event planner pictures to help select foods and portion ratios of protein, vegetables/starches. Keep it simple and rotate your favorite meals. Sheet nix meals Soups Grilled protein/vegetables/side of starch (plate event planner picture) Stir can with protein, mixed vegetables, and riced cauliflower or portion controlled whole grain rice. Make your own bowls - Czech/Lebanese/ theme [place] with Zoodles (spiralized vegetable noodles). Roasted vegetable wraps Alter traditional recipes to reflect HIGH QUALITY ingredients in the right QUANTITIES. Snacks - portion controlled: Raw veggies (can have with hummus, mashed avocado, salsa). Unsalted nuts Fruit (1 serving). (optional side of peanut butter) Air pop popcorn [place] and low fat papua new guinean cheese rolled up String cheese Protein balls (mix rolled oats, nut butter, flax seeds, dash almond milk). Beverages: Water Coffee, Hot tea Unsweetened ice tea EATING OUT: Research menu online, include nutritional information. Make your order decision before getting to restaurant. Stick to recommended portions (plate event planner picture). Ask for substitutions or modifications. [...] baked potato, sprouted grain bread, chick peas https://www.Flightfox.com/article/2306335/vzzyqxjmxvitv-dnlo-idix-for-beginners / https://www.eatingScoutforce.com/category/4274/qidmgropioyiu-qfai-fzumbe/ https://www.eatingScoutforce.com/category/4300/awtvtijevovbc-baht-ldbh-plans/ My current favorite cookbooks are documented in this encounterAvita [facility]01-03-2024 History of Present illness Narrative* Christie Phan MD - 05/26/2023 5:00 PM EST Images from the original note were not included. [facility] Follow-Up Appointment [...] refer to nutrition to work towards a [facility] diet Plan Diagnoses and all orders for [...] WELLNESS; Future F/U: 3 months SUBJECTIVE: Jones Haely is a 42 year old female with [...] the date of the service which included owsp-zy-twzz patient care, completing clinical documentation, performing a medically appropriate examination, counseling and educating the patient/family/caregiver, and ordering medications, tests, or procedures. Christie Phan MD, MA, [facility] Lifestyle Medicine Specialist documented in this encounterAvita Health [facility]01-03-2024 [facility]12-27-2023 [facility]12-04-2023 Miscellaneous Notes * Telephone Encounter - Renate Lawrence MA - 04/26/2023 5:26 PM EST Medication pending with new pharmacy information. documented in this encounterAvita Health System [facility]12-04-2023 [facility]12-04-2023 History of Present illness Narrative* Christie Phan MD - 04/26/2023 4:15 PM EST Images from the original note were not included. [facility] Virtual Follow-Up [...] the date of the service which included brpf-dn-hwim patient care, completing clinical documentation, performing a medically appropriate examination, counseling and educating the patient/family/caregiver, and ordering medications, tests, or procedures. I have communicated my name and active licensure. The patient's identity and physical location wereverified at the time of this visit. Either the patient or their legal call center representative has been informed of the risks and benefits of -- and alternatives to -- treatment through a remote evaluation andconsents to proceed with the evaluation remotely. Christie Phan MD, MA, [facility] Lifestyle Medicine Specialist documented in this encounterAvita Health System [facility]12-04-2023 Nurse Note* Renate Lawrence MA - 04/26/2023 2:46 PM EST Spoke to Jones Haley, confirmed patient is registered on [employer] and is prepared for their appointment. Confirmed the patient has updated medications, allergies, and questionnaires via [employer]. Informed patient if there is an issue with the connection, provider will send the patient a secure link. If provider is running late, patient should remain connected to the visit. Patient verbalized understanding. documented in this encounterAvita Health System [facility] Hospital12-04-2023 [facility]11-30-2023 Miscellaneous Notes* Telephone Encounter - Enma Hamm RN - 04/22/2023 3:48 PM EST Pt called for Iron results; possible need for transfusion. Pt aware no need for iron infusion at this time. Enma Hamm RN documented in this encounterAvita Health System Galion Hospital11-24-2023 [facility]11-24-2023 NoteHNO ID: [id number] Author: Kenzie Shannon Service: ? Author Type: ? Type: Progress Notes Filed: 04/16/2023 11:10 AM Note Text: Patient Identification confirmed: yes. Injection given and documented on MAR per provider order. Kenzie ShannonGrant Hospital11-24-2023 History of Present illness Narrative* Kenzie Shannon - 04/16/2023 10:55 AM EST Patient Identification confirmed: yes. Injection given and documented on MAR per provider order. Kenzie Shannon documented in this encounterAvita Health System [facility]10-27-2023 History of Present illness Narrative* Kenzie Shannon - 03/19/2023 11:06 AM EDT Patient Identification confirmed: yes. Injection given and documented on MAR per provider order. Kenzie Shannon documented in this encounterAvita Health System [facility] Hospital10-24-2023 History of Present illness Narrative* Marija Ziegler - 03/16/2023 10:13 AM EDT CMN RECEIVED BY MED SEC VIA FAX, COMPLETED, AND PLACED IN PROVIDER MAILBOX FOR SIGNATURE On 2022 By Marija Ziegler Legal Billing Coordinator II. [employer] SENDING CMN: JOSH SIGNED AND DATED CMN, FAXED TO DME & CONFIRMATION PAGE RECEIVED: 03.24.23 documented in this encounterAvita Health System [facility] Hospital10-19-2023 History of Present illness Narrative* Beatriz Sanchez [...] LPN In Department: RHEUMATOLOGY documented in this encounterAvita Health System [facility] Hospital10-18-2023 Miscellaneous Notes* Telephone Encounter - Christie Phan MD - 03/10/2023 2:18 PM EDT Spoke with patient. We stopped her trulicity because of side effects. She only took the cymbalta for a week. She will restart and we will see how she is doing in 2 months. Have also ordered insulin labs to check for insulin resistance. documented in this encounterAvita Health [facility]10-09-2023 Miscellaneous Notes* Telephone Encounter - Lynne Ni MD - 03/01/2023 3:27 PM EDT For chart: Eye exam 02/26/23 no ocular complication related to medication. * Telephone Encounter - Beatriz Sanchez LPN - 03/01/2023 2:38 PM EDT [facility] from [facility] Placed on your desk for review. documented in this encounterAvita Health System Galion Hospital09-29-2023 Nurse Note* Radha Kebede MA - 02/19/2023 11:48 AM EDT Patient Identification confirmed: yes. Injection given and documented on JUL per provider order. Radha Schofield MA documented in this encounterAvita Health System Gal[facility] Hospital09-29-2023 Instructions* Patient Instructions* Jose Najera MD - 02/19/2023 11:40 AM EDT B12 shot today and every 4 weeks. Continue Folic acid. Follow up in 8 Weeks - labs 1 week before. documented in this encounterAvita Health System Gal[facility] Hospital09-29-2023 History of Present illness Narrative* Jose Najera MD - 02/19/2023 11:32 AM EDT Images from the original note were not included. AMBULATORY TELEPHONE VISIT Jones Melissa Haley has consented to this telephone encounter. Persons Present: Patient and myself Chief Complaint/Reason: Anemia; To review recent blood work. HPI: Total Time Spent: 21 minutes Wilmer Driver APRN.GEAR KEEPER NAME: Jones Haley CLINIC NO.: [id number] DATE OF SERVICE: February 19, 2023 ([place]) [...] lower lip done 2 days ago at [facility] - awaiting results. B12 [...] injections. Shefollows with multiple doctors including and manuscripts curator, hydrological technical officer, board handler and PCP. She has been told they [...] which included preparing to see the patient, ozls-tk-nwyz patient care, completing clinical documentation, performing a medically appropriate examination, counseling and educating the patient/family/caregiver, ordering medications, tests, or p rocedures, and independently interpreting results (not separately reported). Jose Najera MD, CPE Hematology and Oncology Services Provided at: [place], [place] CC: Madelaine Ferris MD [address] [address] documented in this encounterAvita Health System Gal[facility] Hospital09-26-2023 Miscellaneous Notes* Telephone Encounter - Lynne Ni [...] INJECTION TEACHING 03/11/2023 7:30 AM [facility] NICKIE VIDEO SPEC EST 08/12/2023 9:00 AM [facility] Last Ophthalmology Check for Plaquenil (Hydroxychloroquine) [...] diagnoses: Vitamin D deficiency documented in this encounterAvita Health System [facility]09-18-2023 Miscellaneous Notes* Telephone Encounter - AvaMirela barboza - 02/08/2023 11:12 AM EDT Spoke with patient Will get labs done when she does labs in Dec for Dre/Onc Mailed orders for DXA to pt so she can go to [facility] Pre cert Benlyst Scheduled Teaching visit [...] accordingly. Lynne Ni MD documented in this encounterAvita Health System [facility] Hospital09-14-2023 History of Present illness Narrative* Lashelljessicamax Carlene - 02/04/2023 9:31 AM EDT [facility] received prescription(s) for Benlysta from Dr. Ni. Benefits investigation was conducted, indicating that a prior authorization is required by patients plan with [facility]. Encounter will be updated once prior authorization has been submitted by [facility]. Carlene Rendon CPhT [facility], Inflammatory P: [phone] F: [phone] documented in this encounterAvita Health System Gal[facility] Hospital09-14-2023 History of Present illness Narrative* Lynne Ni [...] visit. Either the patient or their legal call center representative has been informed of the risks [...] neurology/on metoprolol for POTs, avoid aggravating triggers, ad terminal makeup operator pain recommendations per primary care provider/pain [...] -12/31. Couple hrs AM stiffness. COVID vaccine [facility] 09/28/20, 10/19/20, 05/26/21. Feels safe at home. [...] pain: yes H/o precedent/frequent infection(s): as above Enthesopathy/Texline's/heel/plantar tenderness: hands random painful/tingling Skin thickening, psoriasis, [...] COVID-19 original vaccine, age 12+ yr, monovalent ([employer]opLoop - PURPLE TOP) 09/28/2020 10/19/2020 05/26/2021 COVID-19 vaccine, age 12+ yr, bivalent (JoopLoop) 02/08/2022 Pneumovax no Flu shot no Tetanus [...] (33);NL cbc, cmp, negative hla b27; Outside [place] 06/2021 low vitamin D 16, vitamin b12-307;high [...] rate M25.531, M25.532 Bilateral wrist pain Z79.52 [facility] 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 M81.8, T38.0X5A [...] measures, may consider osteoporosis treatment if on ad terminal makeup operator steroids/abnormal bmd, take vitamin D script [...] neurology/on metoprolol for POTs, avoid aggravating triggers, retirement pain recommendations per primary care provider/pain clinic/patient currently declined cymbalta/lyrica, see ortho, prn brace, start fall precautions, answered all questions and concerns, patient voiced understanding. RECOMMENDATION/PLAN: [facility] on 02/04/23 DXA-AXIAL SKELETON DXA-FOREARM SKELETON Reviewed [...] (200mg) daily with a meal Please see top tile decorator every 6-12months while on Hydroxychloroquine. Start 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 [...] touching your toes, sit-ups, using row machine ad terminal makeup operator pain recommendations per primary care provider/pain [...] video & audio (virtual) or phone or bumx-ub-mckq patient care, completing clinical documentation, obtaining and/or [...] cc Gay Enciso CNP;Dr.Douglas Sai Ferris MD [facility] AMBULATORY VISIT INTAKE QUESTIONNAIRE Question [...] Workers' Compensation? No Do you need an translator/interpreter? No [facility] MYCHART ZOOM MESSAGE Question 02/02/2023 [...] of Right Forearm or Lower Left Leg. [facility] PROMIS 10 ADULT SHORT FORM V1.0 GLOBAL [...] 21 - 68) 41.1 (Good) 36.3 (Fair) [facility] Promis Gh Physical Score Compared To Last (range: -2 - 3) 3 (WITHIN +/- 5) 3 (WITHIN +/- 5) Myc Promis Gh Mental Score Compared To Last (range: -2 - 3) 3 (WITHIN +/- 5) 2 (LESS < or = 5) documented in this encounterAvita Health System [facility] Hospital09-14-2023 Instructions* Patient Instructions* Lynne Ni MD - [...] (200mg) daily with a meal Please see top tile decorator every 6-12months while on Hydroxychloroquine. 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 daily [...] touching your toes, sit-ups, using row machine ad terminal makeup operator pain recommendations per primary care provider/pain [...] your usual activities immediately. documented in this encounterAvita Health System [facility] Hospital09-05-2023 Miscellaneous Notes* Telephone Encounter - Maynor Bryson MA - 01/26/2023 7:46 AM EDT patient has viewed the NAVX message per [employer]. * Telephone Encounter - Lynne Ni MD - 01/24/2023 8:04 PM EDT Please Call patient if [employer] note not read to review results/released to My Chart if tests completed at [facility]: mildly high normal wbc- will monitor. Mildly [...] accordingly. Lynne Ni MD documented in this encounterAvita Health System Galion Hospital09-01-2023 Nurse Note* Radha Kebede MA - 01/22/2023 12:17 PM EDT Patient Identification confirmed: yes. Injection given and documented on JUL per provider order. Radha Schofield MA documented in this encounterAvita Health System Galion Hospital08-22-2023 Miscellaneous Notes* Telephone Encounter - Christie Phan [...] the above prescription(s) to electronically send to [facility] pharmacy. Milagro Mendiola MA documented in this encounterAvita Health System Galion Hospital08-11-2023 History of Present illness Narrative* Misty Nelson MD - 01/01/2023 10:51 AM EDT VIRTUAL VISIT PROGRESS NOTE This is a virtual visit using [employer] video visit. It required patient-provider interaction for themedical decision making as documented below. I have communicated my name and active licensure. The patient's identity and physical location wereverified at the time of this visit. Either the patient or their legal call center representative has been informed of the risks [...] otitis or sinusitis No pneumonia She sees hydrological technical officer and was diagnosed with lupus She is on Plaquenil, 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 Prednisone 10mg once daily for the past year; every few months she gets treated with higher doses of prednisone for flares of her symptoms The medications seem to help the body aches She saw the staffing recruiter Treated with B12 and folic acid We [...] visit. Misty Nelson MD documented in this encounterAvita Health System [facility] Hospital07-28-2023 Miscellaneous Notes* Telephone Encounter - Wilmer Driver APRN.CNP - 12/18/2022 10:48 AM EDT Spoke with patient this morning, 12/18/2022. Wilmer Driver APRN.CNP * Telephone Encounter - Lidia Argueta RN - 12/18/2022 9:31 AM EDT Pt called taxonomy teacher service last evening stating she was suppose to have a phone call with Wilmer at 330 and never received a call. Pt is still waiting (536 pm 7/27/23). Please advise Lidia Argueta RN documented in this encounterAvita Health System Galion Hospital07-28-2023 History of Present illness Narrative* Wilmer Driver APRN.GEAR KEEPER - 12/18/2022 9:07 AM EDT Images from [...] Total Time Spent: 21 minutes Wilmer Driver APRN.GEAR KEEPER NAME: Jones Haley [facility] NO.: [id number] DATE OF SERVICE: October 22, 2022 ([facility]) [...] lower lip done 2 days ago at [facility] - awaiting results. B12 [...] injections. Shefollows with multiple doctors including and manuscripts curator, hydrological technical officer, board handler and PCP. She has been told they [...] Initial Visit, March 04, 2022: Jones Melissa Branchfrancisco javier presents today Hematology and Oncology evaluation. [...] which included preparing to see the patient, gomp-jq-cbmj patient care, completing clinical documentation, performing a medically appropriate examination, counseling and educating the patient/family/caregiver, ordering medications, tests, or p rocedures, and independently interpreting results (not separately reported). Jose Najera MD, CPE Hematology and Oncology Services Provided at: [place], [place] CC: Madelaine Ferris MD [address] [facility] [address] documented in this encounterAvita Health System Galion Hospital07-26-2023 Miscellaneous Notes* Telephone Encounter - Pamella Bettencourt RN - 12/16/2022 1:14 PM EDT Pt notified and verbalizes understanding. Clerical: Please change tomorrow's appointment to a phone visit at the end of Wilmer's day. Preferred number is [phone]. In addition, pt will be in next 12/25/22 @ 1130 for her B12 shot. Please add her to the MA schedule. Thanks! Pamella Bettencourt RN * Telephone Encounter - Wilmer Driver APRN.CNP - 12/16/2022 12:56 PM EDT That would be okay. Have her added at the end of the day. Thanks, Wilmer Driver APRN.GEAR KEEPER * Telephone Encounter - Pamella Bettencourt RN [...] schedule? Pamella Bettencourt RN documented in this encounterAvita Health System [facility] Hospital07-23-2023 Miscellaneous Notes* Telephone Encounter - Jose Najera [...] advise Enma Hamm RN documented in this encounterAvita Health System Galion Hospital07-04-2023 Miscellaneous Notes* Telephone Encounter - Lynne Ni [...] accordingly. Lynne Ni MD documented in this encounterAvita Health System Galion Hospital06-29-2023 Nurse Note* Margret Cuenca - 11/19/2022 11:01 AM EDT Patient Identification confirmed: yes. Injection given and documented on MAR per provider order. Margret Cuenca documented in this encounterAvita Health System Galion Hospital06-01-2023 Nurse Note* Stacy Gutiérrez Ma - 10/22/2022 11:50 AM EDT Patient Identification confirmed: yes. Injection given and documented on JUL per provider order. Stacy Gutiérrez Ma documented in this encounterAvita Health System Galion Hospital06-01-2023 Instructions* Patient Instructions* Jose Najera MD - 10/22/2022 11:43 AM EDT B12 Shot today and every 4 weeks. Continue Folic acid. Follow up in 8 Weeks - labs 1 week before. documented in this encounterAvita Health System Galion Hospital06-01-2023 History of Present illness Narrative* Jose Najera MD - 10/22/2022 11:35 AM EDT Images from the original note were not included. NAME: Jose Carlosfrancisco javierJones [facility] NO.: [id number] DATE OF SERVICE: October 22, 2022 ([facility]) [...] lower lip done 2 days ago at [facility] - awaiting results. B12 [...] injections. Shefollows with multiple doctors including and manuscripts curator, hydrological technical officer, board handler and PCP. She has been told they [...] which included preparing to see the patient, lmuq-gb-qoyi patient care, completing clinical documentation, performing a medically appropriate examination, counseling and educating the patient/family/caregiver, ordering medications, tests, or p rocedures, and independently interpreting results (not separately reported). Jose Najera MD, CPE Hematology and Oncology Services Provided at: [place], [place] CC: Madelaine Ferris MD [address] [facility] [address] documented in this encounterAvita Health System Galion Hospital05-04-2023 Nurse Note* Stacy Gutiérrez Ma - 09/24/2022 10:22 AM EDT Patient Identification confirmed: yes. Injection given and documented on JUL per provider order. Stacy Gutiérrez Ma documented in this encounterAvita Health System Galion Hospital04-18-2023 Miscellaneous Notes* Telephone Encounter - Stacy Hernandez - 09/08/2022 2:27 PM EDT Pharmacy-Reviewed Medication History Patient Name:.Jones Haley : 1980 Patient Contact Attempt: First attempt Adherence Packing Program Accepted? No, patient does not wish to participate. Patient is not eligible for adherence packaging because PCP is not within [facility]. Patient wishes to continue at [facility] since medication bottles will look the same and then she can pick-up the medications when she needs them. Stacy Hernandez September 08, 2022 2:28 PM [facility] [phone] documented in this encounterAvita Health System [facility] Hospital04-17-2023 History of Present illness Narrative* Christie Phan [...] which included preparing to see the patient, emic-ns-oxhg patient care, completing clinical documentation, performing a medically appropriate examination, counseling and educating the patient/family/caregiver, ordering medications, tests, or p rocedures, and communicating with other HCPs (not separately reported). I have communicated my name and active licensure. The patient's identity and physical location wereverified at the time of this visit. Either the patient or their legal call center representative has been informed of the risks and benefits of -- and alternatives to -- treatment through a remote evaluation andconsents to proceed with the evaluation remotely. Christie Phan MD, MA, [facility] Lifestyle Medicine Specialist documented in this [facility]04-17-2023 Nurse Note* Milagro Mendiola MA - 09/07/2022 2:00 PM EDT Called pt to do intake for video visit pt unavailable lft vm msg sent my chart. Milagro Mendiola MA documented in this [facility]04-10-2023 Miscellaneous Notes* Telephone Encounter - Shantel Higgins MA - 08/31/2022 8:38 AM EDT called [facility] pharmacy - pharmacy had 1 refill remaining no action needed from our office documented in this [facility]04-06-2023 Nurse Note* Stacy Gutiérrez Ma - 08/27/2022 10:31 AM EDT Patient Identification confirmed: yes. Injection given and documented on JUL per provider order. Stacy Gutiérrez Ma documented in this [facility]04-06-2023 History of Present illness Narrative* Wilmer Driver APRN.TRUE - 08/27/2022 10:00 AM EDT Images from the original note were not included. NAME: Jones Haley CLINIC NO.: [id number] DATE OF SERVICE: August 27, 2022 (Bob) [...] injections. Shefollows with multiple doctors including and manuscripts curator, hydrological technical officer, board handler and PCP. She has been told they [...] stomach other (Crohn's [Other]) Mother Wilmer Driver APRN.GEAR KEEPER Hematology and Oncology Services Provided at: [place], [place] CC: Madleaine Ferris MD [address] [facility] [address] I spent a total of 30 minutes on the date of the service which included preparing to see the patient, htfn-cj-dxwo patient care, completing clinical documentation, obtaining and/or reviewing separately obtained history, performing a medically appropriate examination, counseling and educating the pat ient/family/caregiver, ordering medications, tests, or procedures, independently interpreting results (not separately reported), and communicating results to the patient/family/caregiver. documented in this encounterAvita Health System Galion Hospital03-29-2023 Miscellaneous Notes* Telephone Encounter - Freda Noland [...] low vitamin b12- take over the counter 4900-8108 mcg daily. Improved/ normal rest of rheum [...] accordingly. Lynne Ni MD documented in this encounterAvita Health System [facility] Hospital03-28-2023 Miscellaneous Notes* Telephone Encounter - Beatriz Sanchez [...] accordingly. Lynne Ni MD documented in this encounterAvita Health System [facility] Hospital03-20-2023 Miscellaneous Notes* Telephone Encounter - Christie Phan MD - 08/10/2022 9:46 AM EDT [facility] requesting refill, patient never started according to the chart and I have not seen her in follow-up. * Telephone Encounter - Jami Everett Cma - 08/10/2022 7:40 AM EDT [facility] Pharmacy request for the following refill(s): Requested Prescriptions Pending Prescriptions Disp Refills DULoxetine (CYMBALTA) 20 mg capsule [Pharmacy Med Name: DULOXETINE HCL DR 20 MG CAP] 30 capsule 2 Sig: TAKE 1 CAPSULE BY MOUTH ONCE DAILY Please review and advise. Jami Everett Cma documented in this encounterAvita Health System [facility]03-06-2023 Instructions* Patient Instructions* Timmy Heck APRN.TRUE - 07/27/2022 9:12 PM [...] treatment, there are resources available at the [facility] such as a nutrition consultation or referral to weight management programs at our [facility]. Please let us know if we can [...] the central scheduling system for the [facility] at [phone]. [employer] now offers direct scheduling for patients to schedule appointments. Virtual visits are also available. If not covered by your insurance, there is a 35% discount. Please contact your insurance to determine coverage. Call the office at [phone], option #5 for questions. documented in this encounterAvita [facility]-06-[facility] History of Present illness Narrative* Timmy Hcek APRN.CNP - 07/27/2022 10:30 AM EST Images from the original note were not included. [facility] Visit Follow [...] will have a prescription sent to a [employer] company - [employer] who will be calling you in the next 1-2 weeks or so. Please call them directly or us if you do not hear from them in this time frame. - Will request formal mask fitting - You should be eligible for new supplies approximately every 3-6 months, depending on your insurance coverage. - If your mask doesn't fit well, call the [employer] company before 30 days are up to [...] Tips for good sleep hygiene shared in FREEjithart. - Follow up in 2 months in the office. Recommend scheduling this appointment now to ensure the besttime for you. [facility] on 04/13/22 CONSULT TO SLEEP MEDICINE - ADULT CPAP/BIPAP/OTHER PAP THERAPY ORDER Lawanda Miranda MD Interval history : Here for follow up for sleep apnea management. SLEEP APNEA Sleep apnea type : JOSE RAFAEL Most Recent Apnea-Hypopnea Index (AHI): 5.3 Treatment : PAP therapy DME: Josh MOJICA fax: [phone] [facility] [place]: [phone] PAP History: Current PAP settin-15 cm H2O. [...] or near accidents due to drowsy drivin [place] Sleepiness Scale 04/12/2022 07/23/2022 Score 4 (No [...] medications, tests, or procedures. documented in this encounterAvita [facility]03-03-2023 Miscellaneous Notes* Telephone Encounter - Kyara Basurto [...] complete patient specific tasks. documented in this encounterAvita [facility]03-01-2023 Miscellaneous Notes* Telephone Encounter - Gem Mercedes RN - 07/22/2022 2:37 PM EST [employer] message sent documented in this encounterAvita Health [facility]12-28-2022 History of Present illness Narrative* Kenzie Shannon - 05/20/2022 2:28 PM EST Patient Identification confirmed: yes. Injection given and documented on JUL per provider order. Kenzie Shannon documented in this encounterAvita Health [facility]12-28-2022 Miscellaneous Notes* Addendum Note - Jose Najera MD - 05/20/2022 2:27 PM ESTAddended by: JOSE NAJERA on: 05/20/2022 02:27 PM Modules accepted: Orders documented in this encounterAvita Health System [facility]12-28-2022 Instructions* Patient Instructions* Jose Najera MD - 05/20/2022 2:23 PM EST B12 Shot Today and every 4 weeks Get fit for CPAP mask and setting this 05/28/2021 Continue Folic acid. RTC in 8 Weeks - labs 1 week before. documented in this encounterAvita Health System [facility]12-28-2022 History of Present illness Narrative* Jose Najera MD - 05/20/2022 1:30 PM EST Images from the original note were not included. NAME: Jones Haley CLINIC NO.: [id number] DATE OF SERVICE: May 20, 2022 (Marquis) [...] which included preparing to see the patient, [id number]-bs-[id number] patient care, completing clinical documentation, performing a medically appropriate examination, counseling and educating the patient/family/caregiver, ordering medications, tests, or p rocedures, and independently interpreting results (not separately reported). Jose Najera MD, CPE Hematology and Oncology Services Provided at: [place], [place] CC: Jose Najera [address] [place] [address] [facility] [address] Madelaine Ferris MD, [address] [place] [id number] CC: Madelaine Ferris MD [address] [place] [id number] documented in this encounterAvita [facility]12-13-2022 Miscellaneous Notes* Telephone Encounter - Gem Mercedes RN - 05/05/2022 2:39 PM EST Faxed order, office notes, demographics, and sleep study to: DME name: Josh Reese [facility] fax: [phone] [facility] ph: [phone] Confirmation received. documented in this encounterAvita Health System [facility]12-13-2022 Miscellaneous Notes* Telephone Encounter - Gem Mercedes RN - 05/05/2022 12:00 PM EST [employer] message sent documented in this encounterAvita Health System [facility]12-13-2022 Miscellaneous Notes* Telephone Encounter - ANALILIA Monterroso - 05/05/2022 11:36 AM EST [facility] received your PAP order. Due to a major [employer] recall and manufacturing shortage, we are unable to fulfill the request to provide your patient with a CPAP/BIPAP machine at this time. We will keep the request on file and provide when inventory is available or you can forward the order to another DME provider such as [employer], [employer] or [employer]. Caring for our patients is our top priority and we apologize for this delay. Thank you for your patience during this time. [phone] #1 documented in this encounterAvita Health [facility]12-02-2022 Miscellaneous Notes* Telephone Encounter - Luann Lance [...] doctor has noted concern for EDS. Her hydrological technical officer has told her that she has Lupus. Based on her history, I noted we can offer in-person evaluations for herself and/or her son to see if any genetic testing may be useful. I validated and provided support on the difficulty with her ambulation and transport concerns. I noted[facility] not [facility] other [facility] and only available at [facility] [place]. I offered social work and/or transport assistance for the visit. She declined this and will discuss with her regarding the transport. She verbalized understanding the reasons for in-person evaluation recommended. She has the [facility] line and will call to reschedule for an in-person evaluation at [facility]. Luann Lance MD Laundry Worker, Associate Staff [facility] documented in this encounterAvita Health System [facility]11-30-2022 Miscellaneous Notes* Telephone Encounter - Eliza Licea [...] copy of the report. Confirmed patient's email [email or web address] Eliza Licea Genetic Counselor Perioperative Tech documented in this encounterAvita Health System [facility]11-08-2022 Miscellaneous Notes* Telephone Encounter - Renate Lawrence MA - 03/31/2022 2:34 PM EST [facility] pharmacy electronically requests the following refill(s) Requested Prescriptions Pending Prescriptions Disp Refills DULoxetine (CYMBALTA) 20 mg capsule [Pharmacy Med Name: DULOXETINE HCL DR 20 MG CAP] 30 capsule 2 Sig: TAKE 1 CAPSULE BY MOUTH ONCE DAILY Renate Lawrence MA documented in this encounterAvita Health [facility]11-07-2022 Miscellaneous Notes* Telephone Encounter - Maria Eugenia Sheehan LPN - 03/30/2022 11:53 AM EST [facility] and sent MyChart regarding Dr. Nelson's directive. [...] Thanks. Misty Nelson MD documented in this encounterAvita Health System [facility]11-07-2022 Miscellaneous Notes* Telephone Encounter - Maria Eugenia Sheehan LPN - 03/30/2022 11:49 AM EST LVM and sent MyChart regarding Dr. Nelson's directive. documented in this encounterAvita Health [facility]10-26-2022 Instructions* Patient Instructions* Jose Najera MD - 03/18/2022 11:16 AM EDT Referral for sleep study pending Start on Folic acid. RTC in 8 Weeks - labs 1 week before. documented in this encounterAvita Health [facility]10-26-2022 History of Present illness Narrative* Jose Najera MD - 03/18/2022 10:45 AM EDT Images from the original note were not included. NAME: Tera Jones [facility] NO.: [id number] DATE OF SERVICE: March 18, 2022 (nhung) Some elements in this clinic note that [...] which included preparing to see the patient, [id number] patient care, completing clinical documentation, performing a medically appropriate examination, counseling and educating the patient/family/caregiver, ordering medications, tests, or p rocedures, and independently interpreting results (not separately reported). Jose Najera MD, CPE Hematology and Oncology Services Provided at: [place], [place] CC: Madelaine Ferris MD [address] [facility] [address] documented in this encounterAvita Health System [facility]10-18-2022 History of Present illness Narrative* Misty Nelson MD - 03/10/2022 2:14 PM EDT VIRTUAL VISIT PROGRESS NOTE This is a virtual visit using [employer] video visit. It required patient-provider interaction for [...] the HR increases again She sees a cattle manager in [place] PCP is running the Holter and echo [...] but was not pursued yet Lives in [place] She did have LN biopsy in the [...] visit. Misty Nelson MD documented in this encounterAvita Health [facility]10-17-2022 History of Past illness Narrative* Problem Noted Date Diagnosed Date Resolved Date Obesity, Class II, BMI 35-39.9 03/09/2022 03/10/2023 Obesity (BMI 30-39.9) 05/31/20142016 documented as of this encounter (statuses as of 03/10/2023) [facility] History of Past illness Narrative* Problem Noted Date Diagnosed Date Resolved Date Obesity, Class II, BMI 35-39.9 03/09/2022 03/10/2023 Obesity (BMI 30-39.9) 05/31/20142016 documented as of this encounter (statuses as of 03/11/2023) [facility] History of Past illness Narrative* Problem Noted Date Diagnosed Date Resolved Date Obesity, Class II, BMI 35-39.9 03/09/2022 03/10/2023 Obesity (BMI 30-39.9) 05/31/20142016 documented as of this encounter (statuses as of 03/19/2023) [facility] History of Past illness Narrative* Problem Noted Date Diagnosed Date Resolved Date Obesity, Class II, BMI 35-39.9 03/09/2022 03/10/2023 Obesity (BMI 30-39.9) 05/31/20142016 documented as of this encounter (statuses as of 03/24/2023) [facility] History of Past illness Narrative* Problem Noted Date Diagnosed Date Resolved Date Obesity, Class II, BMI 35-39.9 03/09/2022 03/10/2023 Obesity (BMI 30-39.9) 05/31/20142016 documented as of this encounter (statuses as of 04/16/2023) [facility] History of Past illness Narrative* Problem Noted Date Diagnosed Date Resolved Date Obesity, Class II, BMI 35-39.9 03/09/2022 03/10/2023 Obesity (BMI 30-39.9) 05/31/20142016 documented as of this encounter (statuses as of 04/23/2023) [address]17-2022 History of Past illness Narrative* Problem Noted Date Diagnosed Date Resolved Date Obesity, Class II, BMI 35-39.9 03/09/2022 03/10/2023 Obesity (BMI 30-39.9) 05/31/20142016 documented as of this encounter (statuses as of 04/27/2023) [address]17-2022 History of Past illness Narrative* Problem Noted Date Diagnosed Date Resolved Date Obesity, Class II, BMI 35-39.9 03/09/2022 03/10/2023 Obesity (BMI 30-39.9) 05/31/20142016 documented as of this encounter (statuses as of 04/27/2023) [address]17-2022 History of Past illness Narrative* Problem Noted Date Diagnosed Date Resolved Date Obesity, Class II, BMI 35-39.9 03/09/2022 03/10/2023 Obesity (BMI 30-39.9) 05/31/20142016 documented as of this encounter (statuses as of 05/31/2023) [address]17-2022 History of Past illness Narrative* Problem Noted Date Diagnosed Date Resolved Date Obesity, Class II, BMI 35-39.9 03/09/2022 03/10/2023 Obesity (BMI 30-39.9) 05/31/20142016 documented as of this encounter (statuses as of 07/13/2023) [address]17-2022 History of Past illness Narrative* Problem Noted Date Diagnosed Date Resolved Date Obesity, Class II, BMI 35-39.9 03/09/2022 03/10/2023 Obesity (BMI 30-39.9) 05/31/20142016 documented as of this encounter (statuses as of 07/13/2023) [address]17-2022 History of Past illness Narrative* Problem Noted Date Diagnosed Date Resolved Date Obesity, Class II, BMI 35-39.9 03/09/2022 03/10/2023 Obesity (BMI 30-39.9) 05/31/20142016 documented as of this encounter (statuses as of 08/05/2023) [address]17-2022 History of Past illness Narrative* Problem Noted Date Diagnosed Date Resolved Date Obesity, Class II, BMI 35-39.9 03/09/2022 03/10/2023 Obesity (BMI 30-39.9) 05/31/20142016 documented as of this encounter (statuses as of 08/12/2023) [address]17-2022 History of Past illness Narrative* Problem Noted Date Diagnosed Date Resolved Date Obesity, Class II, BMI 35-39.9 03/09/2022 03/10/2023 Obesity (BMI 30-39.9) 05/31/20142016 documented as of this encounter (statuses as of 09/01/2023) [facility] of Past illness Narrative* Problem Noted Date Diagnosed Date Resolved Date Obesity, Class II, BMI 35-39.9 03/09/2022 03/10/2023 Obesity (BMI 30-39.9) 05/31/20142016 documented as of this encounter (statuses as of 09/06/2023) [facility] History of Past illness Narrative* Problem Noted Date Diagnosed Date Resolved Date Obesity, Class II, BMI 35-39.9 03/09/2022 03/10/2023 Obesity (BMI 30-39.9) 05/31/20142016 documented as of this encounter (statuses as of 09/11/2023) [address]17-2022 Instructions* Patient Instructions* Christie Phan MD - 03/09/2022 12:47 PM EDT Check EKG for prolonged QT. If normal, I would try going back on the Lexapro, can recheck an EKG inabout a month to make sure that things are going ok. (I'm leaving this, but we are changing to Cymbalta) Tilt Table Test [email or web address] documented in this encounterAvita Health [facility]10-17-2022 History of Present illness Narrative* Christie Phan MD - 03/09/2022 12:08 PM EDT Images from the original note were not included. 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 documented in this encounterAvita Health [facility]10-14-2022 Miscellaneous Notes* Telephone Encounter - Krista [...] accordingly. Lynne Ni MD documented in this encounterAvita Health System [facility]10-12-2022 Instructions* Patient Instructions* Jose Najera MD - 03/04/2022 11:42 AM EDT Labs today. Referral for sleep study. RTC in 2 weeks. Consider immunology referral. Referral to lifestyle medicine documented in this encounterAvita Health [facility]10-12-2022 History of Present illness Narrative* Jose Najera MD - 03/04/2022 11:19 AM EDT Images from the original note were not included. NAME: Jones Haley [facility] NO.: [id number] DATE OF SERVICE: March 04, 2022 Referring [...] which included preparing to see the patient, kjmr-ic-geni patient care, completing clinical documentation, obtaining and/or reviewing separately obtained history, performing a medically appropriate examination, counseling and educating the pat ient/family/caregiver, ordering medications, tests, or procedures, and independently interpreting results (not separately reported). Jose Najera MD, CPE Hematology and Oncology Services Provided at: [place], [place] CC: Madelaine Ferris MD [address] [facility] [address] Madelaine Ferris MD, MD [address] [facility] [address] documented in this encounterAvita Health [facility] Hospital2022 History of Present illness Narrative* Alhaji Head, DO - 02/24/2022 6:00 PM EDT VIRTUAL VISIT PROGRESS NOTE This is a virtual visit using [employer] video visit. 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 Her hydrological technical officer is Dr. Ni. Dr. Ni and I [...] - R00.0) Nov, Flushing (ICD-10 - R23.2) [employer] Other 06-03-2022 Nurse Note* Lynne Ni MD - 10/24/2021 8:32 AM EDT See progress note documented in this encounterAvita Health [facility]06-03-2022 History of Present illness Narrative* Lynne [...] Due for eye exam. Labs sent to [facility]/completed in 06/2021 (no results faxed to office, [...] pain: yes H/o precedent/frequent infection(s): as above Enthesopathy/Texline's/heel/plantar tenderness: hands random painful/tingling Skin thickening, psoriasis, [...] Date(s) Administered COVID-19 vaccine, age 12+ yr ([employer] - PURPLE TOP) 09/28/2020 10/19/2020 Pneumovax no [...] Diagnostic tests reviewed for today's visit: Outside [place] 06/2021 low vitamin D 16, vitamin b12-307;high [...] Due for eye exam. Labs sent to [facility]/completed in 06/2021 (no results faxed to office, [...] (200mg) daily with a meal Please see top tile decorator every 6-12months while on Hydroxychloroquine. Recommend goal: [...] touching your toes, sit-ups, using row machine retirement pain recommendations per primary care provider/pain clinic [...] video & audio (virtual) or phone or anpr-oa-ltkk patient care, completing clinical documentation, obtaining and/or [...] had the pleasure of seeing your patient, oJnes Haley. I have enclosed a copy of [...] body? With SOME difficulty Bend down to pick remover clothing from the floor? With SOME difficulty [...] my health Strongly Agree documented in this encounterAvita [facility]06-03-2022 Instructions* Patient Instructions* Lynne Ni MD [...] (200mg) daily with a meal Please see top tile decorator every 6-12months while on Hydroxychloroquine. Recommend goal: [...] touching your toes, sit-ups, using row machine retirement pain recommendations per primary care provider/pain clinic Thank you. documented in this encounterAvita [facility]05-25-2022 Evaluation note* Encounter Date Diagnosis Assessment [...] diagnosis I will defer that to her hydrological technical officer. September, Tachycardia (ICD-10 - R00.0) September, Flushing (ICD-10 - R23.2) [employer] Other 04-28-2022 Evaluation note* Encounter Date Diagnosis Assessment Notes Treatment Notes Treatment Clinical Notes Aug, Elevated sed rate (ICD-10 - R70.0) [employer] Other 04-21-2022 Evaluation note* Encounter Date Diagnosis [...] diagnosis I will defer that to her hydrological technical officer. [facility] Other 05-17-2021 Hospital Discharge instructions* Instructions* So Carlisle, RN - 10/07/2020 DISCHARGE INSTRUCTIONS / ARM [...] be sent through Care Everywhere. * amlodipine (Chadian) * nitroglycerin (oral/sublingual) (Chadian) documented in this encounterGrand Lake [facility] HospitalS[facility] Wireless Phone: [phone] 480-333605-17-2021 History of Present illness Narrative* So Carlisle RN - 10/07/2020 1:20 PM EDT Remaining air removed from TR band, no bleeding or hematoma noted. Radial pulse palpable. Pressure dressing applied with arm board in place. * So Carilsle RN - 10/07/2020 10:00 AM EDT All [...] needs to be completed. documented in this encounterGrand Lake [facility] HospitalS5 Wireless Phone: [phone] 400-452901-08-2015 History of Past illness Narrative* Problem Noted Date Resolved Date Obesity (BMI 30-39.9) 05/31/2014 07/06/2016 documented as of this encounter (statuses as of 10/24/2021) [facility] of [facility] illness Narrative* Problem Noted Date Resolved Date Obesity (BMI 30-39.9) 05/31/2014 07/06/2016 documented as of this encounter (statuses as of 02/25/2022) [address]08-2015 History of Past illness Narrative* Problem Noted Date Resolved Date Obesity (BMI 30-39.9) 05/31/2014 07/06/2016 documented as of this encounter (statuses as of 03/02/2022) [address]08-2015 History of Past illness Narrative* Problem Noted Date Resolved Date Obesity (BMI 30-39.9) 05/31/2014 07/06/2016 documented as of this encounter (statuses as of 03/04/2022) [address]08-2015 History of Past illness Narrative* Problem Noted Date Resolved Date Obesity (BMI 30-39.9) 05/31/2014 07/06/2016 documented as of this encounter (statuses as of 03/05/2022) [address]08-2015 History of Past illness Narrative* Problem Noted Date Resolved Date Obesity (BMI 30-39.9) 05/31/2014 07/06/2016 documented as of this encounter (statuses as of 03/06/2022) [address]08-2015 History of Past illness Narrative* Problem Noted Date Resolved Date Obesity (BMI 30-39.9) 05/31/2014 07/06/2016 documented as of this encounter (statuses as of 03/09/2022) [address]08-2015 History of Past illness Narrative* Problem Noted Date Resolved Date Obesity (BMI 30-39.9) 05/31/2014 07/06/2016 documented as of this encounter (statuses as of 03/10/2022) [address]08-2015 History of Past illness Narrative* Problem Noted Date Resolved Date Obesity (BMI 30-39.9) 05/31/2014 07/06/2016 documented as of this encounter (statuses as of 03/10/2022) [address]08-2015 History of Past illness Narrative* Problem Noted Date Resolved Date Obesity (BMI 30-39.9) 05/31/2014 07/06/2016 documented as of this encounter (statuses as of 03/12/2022) [address]08-2015 History of Past illness Narrative* Problem Noted Date Resolved Date Obesity (BMI 30-39.9) 05/31/2014 07/06/2016 documented as of this encounter (statuses as of 03/18/2022) [address]08-2015 History of Past illness Narrative* Problem Noted Date Resolved Date Obesity (BMI 30-39.9) 05/31/2014 07/06/2016 documented as of this encounter (statuses as of 03/22/2022) [address]08[address]2015 History of Past illness Narrative* Problem Noted Date Resolved Date Obesity (BMI 30-39.9) 05/31/2014 07/06/2016 documented as of this encounter (statuses as of 03/30/2022) [address]08[address]2015 History of Past illness Narrative* Problem Noted Date Resolved Date Obesity (BMI 30-39.9) 05/31/2014 07/06/2016 documented as of this encounter (statuses as of 03/30/2022) [address]08[address]2015 History of Past illness Narrative* Problem Noted Date Resolved Date Obesity (BMI 30-39.9) 05/31/2014 07/06/2016 documented as of this encounter (statuses as of 04/03/2022) [address]08[address]2015 History of Past illness Narrative* Problem Noted Date Resolved Date Obesity (BMI 30-39.9) 05/31/2014 07/06/2016 documented as of this encounter (statuses as of 04/03/2022) [address]08[address]2015 History of Past illness Narrative* Problem Noted Date Resolved Date Obesity (BMI 30-39.9) 05/31/2014 07/06/2016 documented as of this encounter (statuses as of 04/22/2022) [address]08[address]2015 History of Past illness Narrative* Problem Noted Date Resolved Date Obesity (BMI 30-39.9) 05/31/2014 07/06/2016 documented as of this encounter (statuses as of 04/24/2022) [address]08-2015 History of Past illness Narrative* Problem Noted Date Resolved Date Obesity (BMI 30-39.9) 05/31/2014 07/06/2016 documented as of this encounter (statuses as of 05/05/2022) [address]08[address]2015 History of Past illness Narrative* Problem Noted Date Resolved Date Obesity (BMI 30-39.9) 05/31/2014 07/06/2016 documented as of this encounter (statuses as of 05/05/2022) [address]08-2015 History of Past illness Narrative* Problem Noted Date Resolved Date Obesity (BMI 30-39.9) 05/31/2014 07/06/2016 documented as of this encounter (statuses as of 05/05/2022) [address]08-2015 History of Past illness Narrative* Problem Noted Date Resolved Date Obesity (BMI 30-39.9) 05/31/2014 07/06/2016 documented as of this encounter (statuses as of 05/26/2022) [address]08-2015 History of Past illness Narrative* Problem Noted Date Resolved Date Obesity (BMI 30-39.9) 05/31/2014 07/06/2016 documented as of this encounter (statuses as of 05/27/2022) [address]08-2015 History of Past illness Narrative* Problem Noted Date Resolved Date Obesity (BMI 30-39.9) 05/31/2014 07/06/2016 documented as of this encounter (statuses as of 07/22/2022) [address]08-2015 History of Past illness Narrative* Problem Noted Date Resolved Date Obesity (BMI 30-39.9) 05/31/2014 07/06/2016 documented as of this encounter (statuses as of 07/25/2022) [address]08-2015 History of Past illness Narrative* Problem Noted Date Resolved Date Obesity (BMI 30-39.9) 05/31/2014 07/06/2016 documented as of this encounter (statuses as of 07/27/2022) [address] [address] History of Past illness Narrative* Problem Noted Date Resolved Date Obesity (BMI 30-39.9) 05/31/2014 07/06/2016 documented as of this encounter (statuses as of 07/28/2022) [address] History of Past illness Narrative* Problem Noted Date Resolved Date Obesity (BMI 30-39.9) 05/31/2014 07/06/2016 documented as of this encounter (statuses as of 08/10/2022) [address] History of Past illness Narrative* Problem Noted Date Resolved Date Obesity (BMI 30-39.9) 05/31/2014 07/06/2016 documented as of this encounter (statuses as of 08/18/2022) [address] History of Past illness Narrative* Problem Noted Date Resolved Date Obesity (BMI 30-39.9) 05/31/2014 07/06/2016 documented as of this encounter (statuses as of 08/19/2022) [address] History of Past illness Narrative* Problem Noted Date Resolved Date Obesity (BMI 30-39.9) 05/31/2014 07/06/2016 documented as of this encounter (statuses as of 08/27/2022) [address] History of Past illness Narrative* Problem Noted Date Resolved Date Obesity (BMI 30-39.9) 05/31/2014 07/06/2016 documented as of this encounter (statuses as of 08/29/2022) [address] History of Past illness Narrative* Problem Noted Date Resolved Date Obesity (BMI 30-39.9) 05/31/2014 07/06/2016 documented as of this encounter (statuses as of 08/31/2022) [address] History of Past illness Narrative* Problem Noted Date Resolved Date Obesity (BMI 30-39.9) 05/31/2014 07/06/2016 documented as of this encounter (statuses as of 09/08/2022) [address] History of Past illness Narrative* Problem Noted Date Resolved Date Obesity (BMI 30-39.9) 05/31/2014 07/06/2016 documented as of this encounter (statuses as of 09/08/2022) [address] History of Past illness Narrative* Problem Noted Date Resolved Date Obesity (BMI 30-39.9) 05/31/2014 07/06/2016 documented as of this encounter (statuses as of 09/24/2022) [address] History of Past illness Narrative* Problem Noted Date Resolved Date Obesity (BMI 30-39.9) 05/31/2014 07/06/2016 documented as of this encounter (statuses as of 10/22/2022) [address] History of Past illness Narrative* Problem Noted Date Resolved Date Obesity (BMI 30-39.9) 05/31/2014 07/06/2016 documented as of this encounter (statuses as of 10/25/2022) [address] History of Past illness Narrative* Problem Noted Date Resolved Date Obesity (BMI 30-39.9) 05/31/2014 07/06/2016 documented as of this encounter (statuses as of 11/19/2022) [address] History of Past illness Narrative* Problem Noted Date Resolved Date Obesity (BMI 30-39.9) 05/31/2014 07/06/2016 documented as of this encounter (statuses as of 11/25/2022) [address] History of Past illness Narrative* Problem Noted Date Diagnosed Date Resolved Date Obesity (BMI 30-39.9) 05/31/20142016 documented as of this encounter (statuses as of 12/08/2022) [address] History of Past illness Narrative* Problem Noted Date Diagnosed Date Resolved Date Obesity (BMI 30-39.9) 05/31/20142016 documented as of this encounter (statuses as of 12/18/2022) [address] History of Past illness Narrative* Problem Noted Date Diagnosed Date Resolved Date Obesity (BMI 30-39.9) 05/31/20142016 documented as of this encounter (statuses as of 12/18/2022) [address] History of Past illness Narrative* Problem Noted Date Diagnosed Date Resolved Date Obesity (BMI 30-39.9) 05/31/20142016 documented as of this encounter (statuses as of 12/21/2022) [address] History of Past illness Narrative* Problem Noted Date Diagnosed Date Resolved Date Obesity (BMI 30-39.9) 05/31/20142016 documented as of this encounter (statuses as of 12/22/2022) [address] History of Past illness Narrative* Problem Noted Date Diagnosed Date Resolved Date Obesity (BMI 30-39.9) 05/31/20142016 documented as of this encounter (statuses as of 01/02/2023) [address] History of Past illness Narrative* Problem Noted Date Diagnosed Date Resolved Date Obesity (BMI 30-39.9) 05/31/20142016 documented as of this encounter (statuses as of 01/13/2023) [address] History of Past illness Narrative* Problem Noted Date Diagnosed Date Resolved Date Obesity (BMI 30-39.9) 05/31/20142016 documented as of this encounter (statuses as of 01/22/2023) [address] History of Past illness Narrative* Problem Noted Date Diagnosed Date Resolved Date Obesity (BMI 30-39.9) 05/31/20142016 documented as of this encounter (statuses as of 01/26/2023) [address] History of Past illness Narrative* Problem Noted Date Diagnosed Date Resolved Date Obesity (BMI 30-39.9) 05/31/20142016 documented as of this encounter (statuses as of 02/04/2023) [address] History of Past illness Narrative* Problem Noted Date Diagnosed Date Resolved Date Obesity (BMI 30-39.9) 05/31/20142016 documented as of this encounter (statuses as of 02/04/2023) [address] History of Past illness Narrative* Problem Noted Date Diagnosed Date Resolved Date Obesity (BMI 30-39.9) 05/31/20142016 documented as of this encounter (statuses as of 02/07/2023) [address] History of Past illness Narrative* Problem Noted Date Diagnosed Date Resolved Date Obesity (BMI 30-39.9) 05/31/20142016 documented as of this encounter (statuses as of 02/08/2023) [address] History of Past illness Narrative* Problem Noted Date Diagnosed Date Resolved Date Obesity (BMI 30-39.9) 05/31/20142016 documented as of this encounter (statuses as of 02/16/2023) [address] History of Past illness Narrative* Problem Noted Date Diagnosed Date Resolved Date Obesity (BMI 30-39.9) 05/31/20142016 documented as of this encounter (statuses as of 02/19/2023) [address] History of Past illness Narrative* Problem Noted Date Diagnosed Date Resolved Date Obesity (BMI 30-39.9) 05/31/20142016 documented as of this encounter (statuses as of 02/21/2023) [facility]01-08-2015 History of Past illness Narrative* Problem Noted Date Diagnosed Date Resolved Date Obesity (BMI 30-39.9) 05/31/20142016 documented as of this encounter (statuses as of 03/02/2023) [facility] Diagnosis Other systemic lupus [...] and myositis, unspecified [facility] Diagnosis Swelling of lymph nodes- Primary Enlargement of lymph nodes Other systemic lupus erythematosus with other organ involvement (HCC) On prednisone therapy Hair loss Alopecia, unspecified Bilateral sacroiliitis (HCC) Long-term use of Plaquenil 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-term (current) use of other medications [facility] Diagnosis Vitamin B12 deficiency- Primary Other B-complex deficiencies Vitamin D deficiency Unspecified vitamin D deficiency Elevated sed rate Elevated sedimentation rate Elevated C-reactive protein (CRP) [facility] Diagnosis 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 Other vitamin B12 deficiency anemia Somnolence, daytime Hypersomnia, unspecified Snoring Other dyspnea and respiratory abnormality Chronic fatigue and malaise Chronic fatigue syndrome Obesity, unspecified classification, unspecified obesity type, unspecified whether serious comorbidity present [facility] Diagnosis Obesity, Class II, BMI [...] nonspecific immunological findings [facility] Diagnosis 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 Other vitamin B12 deficiency anemia High total serum IgM [facility] Diagnosis Raised level of immunoglobulins- Primary Other and unspecified nonspecific immunological findings Wound healing, delayed Open wound(s) (multiple) of unspecified site(s), complicated Current smoker Tobacco use disorder [facility] Diagnosis Family history of genetic disease- Primary Family history of other condition [facility] Diagnosis High total serum IgM- Primary Elevated sed rate Elevated sedimentation rate Somnolence, daytime Hypersomnia, unspecified JOSE RAFAEL (obstructive sleep apnea) Obstructive sleep apnea (adult) (pediatric) [facility] Diagnosis 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 Other vitamin B12 deficiency anemia Elevated sed rate Elevated sedimentation rate [facility] Diagnosis 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 Other vitamin B12 deficiency anemia Elevated sed rate Elevated sedimentation rate High total serum IgM Chronic fatigue and malaise Chronic fatigue syndrome [facility] Diagnosis JOSE RAFAEL (obstructive sleep apnea)- Primary Obstructive sleep apnea (adult) (pediatric) [facility] Diagnosis Other systemic lupus erythematosus with other organ involvement (HCC)- Primary Family history of Crohn's disease Family history of other digestive disorders Fibromyalgia Mylagia and myositis, unspecified [facility] Diagnosis Other systemic lupus erythematosus with other organ involvement (HCC)- Primary Elevated LFTs Other abnormal blood chemistry Anemia of chronic disease Anemia of other chronic disease 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 retirement 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-term (current) use of other medications [facility] Diagnosis 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 Other vitamin B12 deficiency anemia Elevated sed rate Elevated sedimentation rate [facility] Diagnosis 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 Other vitamin B12 deficiency anemia Elevated sed rate Elevated sedimentation rate High total serum IgM Chronic fatigue and malaise Chronic fatigue syndrome JOSE RAFAEL (obstructive sleep apnea) Obstructive sleep apnea (adult) (pediatric) [facility] Vitamin D deficiency Unspecified vitamin D deficiency [facility] Diagnosis Obesity, Class III, BMI >= 40- Primary Morbid obesity Polypharmacy 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-term (current) use of other medications Pre-diabetes Other abnormal glucose [facility] Diagnosis 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 Other vitamin B12 deficiency anemia Elevated sed rate Elevated sedimentation rate [facility] Diagnosis 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 Other vitamin B12 deficiency anemia Elevated sed rate Elevated sedimentation rate [facility] Diagnosis 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 Other vitamin B12 deficiency anemia Elevated sed rate Elevated sedimentation rate High total serum IgM Chronic fatigue and malaise Chronic fatigue syndrome Obstructive sleep apnea syndrome Obstructive sleep apnea (adult) (pediatric) [facility] Diagnosis 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 Other vitamin B12 deficiency anemia Elevated sed rate Elevated sedimentation rate [facility] Diagnosis Other systemic lupus erythematosus with other organ involvement (HCC) 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 retirement 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-term (current) use of other medications [facility] Diagnosis 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 Other vitamin B12 deficiency anemia Chronic fatigue and malaise Chronic fatigue syndrome [facility] Diagnosis High total serum IgM- Primary Low serum IgG for age Current smoker Tobacco use disorder [facility] Diagnosis Obesity, Class II, BMI 35-39.9 Obesity, unspecified Prediabetes Other abnormal glucose [facility] Diagnosis 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 Other vitamin B12 deficiency anemia Elevated sed rate Elevated sedimentation rate [facility] Diagnosis Other systemic lupus erythematosus with other organ involvement (HCC)- Primary Vitamin D deficiency Unspecified vitamin D deficiency Elevated LFTs Other abnormal blood chemistry Anemia of chronic disease Anemia of other chronic disease Elevated sed rate Elevated sedimentation rate Elevated C-reactive protein (CRP) [facility] Diagnosis Other systemic lupus erythematosus [...] Bilateral wrist pain 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, forearm [facility] 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 [...] with other organ involvement (HCC) 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 retirement 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-term (current) use of other medications [facility] Diagnosis 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 Other vitamin B12 deficiency anemia Elevated sed rate Elevated sedimentation rate [facility] Diagnosis 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 Other vitamin B12 deficiency anemia Elevated sed rate Elevated sedimentation rate Chronic fatigue and malaise Chronic fatigue syndrome High total serum IgM JOSE RAFAEL (obstructive sleep apnea) Obstructive sleep apnea (adult) (pediatric) [facility] Diagnosis Insulin resistance, unspecified- Primary Depression, recurrent (HCC) Major depressive disorder, recurrent episode, unspecified Chronic pain syndrome [facility] Diagnosis Systemic lupus erythematosus, unspecified SLE type, unspecified organ involvement status (HCC)- Primary [facility] Diagnosis 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 Other vitamin B12 deficiency anemia Elevated sed rate Elevated sedimentation rate [facility] Diagnosis 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 Other vitamin B12 deficiency anemia Elevated sed rate Elevated sedimentation rate documented in this encounter [facility] note* Diagnosis Obesity, Class III, BMI >= 40- Primary Morbid obesity FUO (fever of unknown origin) Fever, unspecified Other chronic pain [facility] this [facility] Diagnosis Obesity, Class III, BMI >= 40 Morbid obesity documented in this encounter [facility] note* Diagnosis Obesity, Class III, BMI >= 40- Primary Morbid obesity Other chronic pain [facility] Diagnosis Irregular heart rate- Primary Essential [...] Muscle weakness (generalized) [facility] Diagnosis Shortness of breath- Primary Paroxysmal [...] rate [facility] this [facility] Diagnosis Systemic lupus erythematosus with other organ involvement (HCC)- Primary [facility] Diagnosis Systemic lupus erythematosus with other [...] C-reactive protein (CRP) [facility] Diagnosis 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 Other vitamin B12 deficiency anemia Obstructive sleep apnea syndrome Obstructive sleep apnea (adult) (pediatric) Chronic fatigue and malaise Chronic fatigue syndrome High total serum IgM JOSE RAFAEL (obstructive sleep apnea) Obstructive sleep apnea (adult) (pediatric) Somnolence, daytime Hypersomnia, unspecified [facility] Diagnosis Elevated sed rate- Primary Elevated sedimentation rate Megaloblastic anemia due to vitamin B12 deficiency Other vitamin B12 deficiency anemia [facility] Diagnosis Other systemic lupus erythematosus [...] other medications Long-term use of high-risk medication [facility] 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-term (current) use of steroids 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 Bilateral hand pain Pain in limb History of vitamin D deficiency Personal history of nutritional deficiency [facility] Diagnosis Elevated sed rate- Primary Elevated sedimentation rate Megaloblastic anemia due to vitamin B12 deficiency Other vitamin B12 deficiency anemia [facility] Diagnosis Other systemic lupus erythematosus with other organ involvement (HCC) 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 retirement 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-term (current) use of other medications [facility] Diagnosis Systemic lupus erythematosus with other organ involvement (HCC)- Primary [facility] Diagnosis Vitamin B12 deficiency- Primary Other B-complex deficiencies [facility] Diagnosis Elevated sed rate- Primary Elevated sedimentation rate Megaloblastic anemia due to vitamin B12 deficiency Other vitamin B12 deficiency anemia [facility] Diagnosis Elevated sed rate- Primary Elevated sedimentation rate Megaloblastic anemia due to vitamin B12 deficiency Other vitamin B12 deficiency anemia [facility] Diagnosis 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 Other vitamin B12 deficiency anemia Elevated sed rate Elevated sedimentation rate Obstructive sleep apnea syndrome Obstructive sleep apnea (adult) (pediatric) [facility] Diagnosis Elevated LFTs- Primary Other abnormal blood chemistry Elevated C-reactive protein (CRP) Elevated sed rate Elevated sedimentation rate Vitamin D deficiency Unspecified vitamin D deficiency Screening-pulmonary TB Screening examination for pulmonary tuberculosis [facility] Diagnosis Other systemic lupus erythematosus with other organ involvement (HCC) [facility] Diagnosis Systemic lupus erythematosus with other organ involvement (HCC)- Primary [facility] Diagnosis Elevated sed rate- Primary Elevated sedimentation rate Megaloblastic anemia due to vitamin B12 deficiency Other vitamin B12 deficiency anemia [facility] Diagnosis Pseudomonas infection- Primary Pseudomonas infection in conditions classified elsewhere and of unspecified site Other systemic lupus erythematosus with other organ involvement (HCC) On prednisone therapy Long-term use of Plaquenil 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-term (current) use of other medications [facility] Diagnosis Onset Date Resolution Status Lupus acute Recurrent Clostridioides difficile diarrhea acute Nipple discharge in female a cute Recurrent Clostridioides difficile diarrhea acute Lumbosacral spondylosis acut e Other chronic pain acute Sacroiliitis acute [facility] Work Phone: Evaluation note* Diagnosis JOSE RAFAEL (obstructive sleep apnea)- Primary Obstructive sleep apnea (adult) (pediatric) Somnolence, daytime Hypersomnia, unspecified [facility] Diagnosis Systemic lupus erythematosus with other organ involvement (HCC)- Primary documented in this encounter [facility] note* Diagnosis Systemic lupus erythematosus with other organ involvement (HCC)- Primary [facility] Diagnosis Onset Date Resolution Status Nipple discharge in female a cute Recurrent Clostridioides difficile diarrhea acute Lumbosacral spondylosis acut e Other chronic pain acute Sacroiliitis acute [facility] Work Phone: Evaluation note* Diagnosis Elevated sed rate- Primary Elevated sedimentation rate Megaloblastic anemia due to vitamin B12 deficiency Other vitamin B12 deficiency anemia [facility] Diagnosis Onset Date Resolution Status Nipple discharge in female a cute Recurrent Clostridioides difficile diarrhea acute Lumbosacral spondylosis acut e Other chronic pain acute Sacroiliitis acute Lumbosacral spondylosis acut e Other chronic pain acute Sacroiliitis acute [facility] Work Phone: Evaluation note* Diagnosis Lumbosacral radiculopathy at L5 Degenerative disc disease, lumbar Cervical radiculopathy at C5 [facility] Diagnosis Onset Date Resolution Status Lumbosacral spondylosis acut e Other chronic pain acute Sacroiliitis acute Lumbosacral spondylosis acut e Other chronic pain acute Sacroiliitis acute [facility] Work Phone: Evaluation note* Diagnosis Other systemic lupus erythematosus with other organ involvement (HCC) [facility] Diagnosis Other systemic lupus erythematosus with other organ involvement (HCC)- Primary Fibromyalgia Mylagia and myositis, unspecified CHRISTIAN positive Other and unspecified nonspecific immunological findings EDS (Peter-Danlos syndrome) Peter-Danlos syndrome Elevated sed rate Elevated sedimentation rate Vitamin D deficiency Unspecified vitamin D deficiency Secondary osteoarthritis of multiple sites Osteoarthrosis involving, or with mention of more than one site, but not specified as generalized, multiple sites Chronic bilateral low back pain with bilateral sciatica Chronic pain of toes of both feet 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-term (current) use of steroids Bilateral hand pain Pain in limb Systemic lupus erythematosus, unspecified SLE type, unspecified organ involvement status (HCC) Vitamin B12 deficiency Other B-complex deficiencies Discoid lupus erythematosus Lupus erythematosus [facility] Diagnosis Nipple discharge Other sign and symptom in breast documented in this encounter [facility]* Diagnosis Elevated sed rate- Primary Elevated sedimentation rate Megaloblastic anemia due to vitamin B12 deficiency Other vitamin B12 deficiency anemia [facility] Diagnosis Abnormal uterine bleeding (AUB) Menorrhagia with regular cycle documented in this encounter [facility] note* Diagnosis 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 Other vitamin B12 deficiency anemia High total serum IgM JOSE RAFAEL (obstructive sleep apnea) Obstructive sleep apnea (adult) (pediatric) Elevated sed rate Elevated sedimentation rate Hypogammaglobulinemia (HCC) Hypogammaglobulinaemia, unspecified Frequent infections [facility] Diagnosis Oral thrush- Primary Candidiasis of mouth documented in this encounter [facility] note* Diagnosis Systemic lupus erythematosus (CMS-HCC)- Primary Cold extremities Pain of lower extremity, unspecified laterality Rheumatoid arthritis, involving unspecified site, unspecified whether rheumatoid factor present ([facility]-HCC) Current smoker 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 [facility]* Diagnosis Oral thrush- Primary Candidiasis of mouth documented in this encounter [facility] note* Diagnosis Systemic lupus erythematosus with other organ involvement (HCC)- Primary documented in this encounter [facility] general Narrative - Reported* Type Description Date Medical History hyperlipidemia Medical History insulin resistance Medical History CMV Surgical History cyst removal pilonidal Surgical History D&C Hospitalization History [facility] Other Hospital Discharge instructionsAmbulatory Orders* Referral to Gastroenterology Location: None [facility] Work Phone: Reason for referral (narrative)* Diagnostic Procedure Only (Routine) - Pending Review Specialty Diagnoses / Procedures Referred By Contac t Referred To Contact XR IMAGING Diagnoses Steroid-induced osteoporosis Procedures DXA-FOREARM SKELETON DXA BONE DENSITY STUDY 1/>SITES APPENDICLR Lynne Perera MD [address] [place] [address] [place] [address] Referral ID Status Reason Start Date Expiration Date Visits Requested Visits Authorized [id number] Pending Review Auto-Generat ed Referral 02/04/2023 03/05/2024 1 1 [facility] for referral (narrative)* Consultation (Routine) - Authorized Specialty Diagnoses / Procedures Referred By Contac t Referred To Contact Cardiology Diagnoses Irregular heart rate Essential hypertension Autonomic dysfunction Obstructive sleep apnea syndrome Primary hypertension Procedures Follow Up In Cardiology Michelle Britton APRN-CNP [address] [facility] [address] [place] [address] Aurora Patel MD [address] [facility] [address] [place] [address] Referral ID Status Reason Start Date Expiration Date V isits Requested Visits Authorized Authorized 06/09/2023 06/08/2024 1 1 * Cardiovascular (Routine) - Pending Review Specialty Diagnoses / Procedures Referred By Contac t Referred To Contact Cardiology Diagnoses Irregular heart rate Procedures Holter Or Event Child'S Nurse Michelle Britton APRN-[facility] [address] [facility] [address] [place] [address] Referral ID Status Reason Start Date Expiration Date V isits Requested Visits Authorized Pending Review 06/09/2023 06/08/2024 1 1 * CV Imaging (Routine) - Pending Review Specialty Diagnoses / Procedures [facility] To Contact Cardiology Diagnoses Irregular heart rate Obstructive sleep apnea syndrome Procedures Transthoracic Echo (TTE) Complete DC ECHO TTHRC R-T 2D W/WOM-MODE COMPL SPEC&COLR D Michelle Britton APRN-[facility] [address] [facility] [address] [place] [address] Referral ID Status Reason Start Date Expiration Date Visits Requested Visits Authorized Pending Review Perform Procedure 06/09/2023 06/08/2024 1 1 * Cardiovascular (Routine) - Authorized Specialty Diagnoses / Procedures Referred By Nahid t Referred To Contact Diagnoses Irregular heart rate Procedures ECG 12 Lead Michelle Britton APRN-CNP [address] [facility] [address] [place] [address] Referral ID Status Reason Start Date Expiration Date V isits Requested Visits Authorized [id number] Authorized 06/09/2023 06/08/[address] [facility] Work Phone: Summary Purpose Family History No Family History Records Found Relationship Condition Age at Onset Recorded Date/T michelle father Unknown Malignant neoplasm Unknown Advance Directives No Advanced Directives Records FoundDocuments on File Type Date Recorded Patient Ingredient Mixer Expl anation ACP-Advance Directive ACP-Power of Correspondence Transcriber Latest Code Status on File Code Status Date Activated Date Inactivated Comments Full Code 10/07/2020 8:32 AM Documents on File Type Date Recorded Patient Ingredient Mixer Expl anation Advance Directive(s) 09/13/2015 8:36 AM Advance Directive Response Recorded Date/ Time Advance Directives No September 17, 2:40pm Reason for Referral Specialty Diagnoses / Procedures Referred By Nahid t Referred To Contact Diagnoses Paroxysmal supraventricular tachycardia PAC (premature atrial contraction) Procedures ECG 12 Lead Lois Holm MD [address] [place] [address] 2, [address] [place] [address] Referral ID Status Reason Start Date Expiration Date V isits Requested Visits Authorized [id number] Authorized 07/13/2023 07/12/2024 1 1 Specialty Diagnoses / Procedures Referred By Contac t Referred To Contact Cardiology Diagnoses Shortness of breath Paroxysmal supraventricular tachycardia PAC (premature atrial contraction) Procedures Follow Up In Cardiology Lois Holm MD [address] [facility] 2, [address] [place] [address] Lois Holm MD [address] [facility] 2, [address] [place] [address] Referral ID Status Reason Start Date Expiration Date V isits Requested Visits Authorized [id number] Authorized 07/13/2023 07/12/2024 1 1 Specialty Diagnoses / Procedures Referred By Contac t Referred To Contact Diagnoses Obesity, Class III, BMI 40-49.9 (morbid obesity) (HCC) Pre-diabetes Christie Phan MD [address] [place], [place] [id number] Referral ID Status Reason Start Date Expiration Date Visits Re quested Visits Authorized [id number] Closed 1 1 Specialty Diagnoses / Procedures Referred By Contac t Referred To Contact Diagnoses Wound healing, delayed Procedures CONSULT TO MEDICAL GENETICS - GENERAL OFFICE/OUTPATIENT [facility] 60-74 MINUTES MEDICAL GENETICS COUNSELING EACH 30 MINUTES Misty Nelson MD [facility] [place] [id number] [facility] [place] [address] [place] [address] Referral ID Status Reason Start Date Expiration Date Visits Requested Visits Authorized [id number] Authorized PCP Requested Referral Auto-Generate d Referral 2 03/10/2023 1 1 Specialty Diagnoses / Procedures Referred By Contac t Referred To Contact Neurology Diagnoses POTS (postural orthostatic tachycardia syndrome) Procedures CONSULT TO NEUROLOGY OFFICE/OUTPATIENT [facility] 60-74 MINUTES Christie Phan MD [address] [place], [place] [id number] Referral ID Status Reason Start Date Expiration Date Visits Requested Visits Authorized [id number] Authorized PCP Requested Referral 2 03/12/2023 1 1 Specialty Diagnoses / Procedures Referred By Contac t Referred To Contact Immunology Diagnoses Raised level of immunoglobulins Procedures CONSULT TO IMMUNOLOGY OFFICE/OUTPATIENT [facility] 60-74 MINUTES Christie Phan MD [address] [address] Referral ID Status Reason Start Date Expiration Date V isits Requested Visits Authorized [id number] Closed PCP Requested Referral 03/09/2022 03/09/2023 1 1 Specialty Diagnoses / Procedures Referred By Contac t Referred To Contact [facility] Diagnoses Somnolence, daytime Snoring Procedures HOME SLEEP APNEA TEST (HSAT) SLEEP STD AIRFLOW HRT RATE&O2 SAT EFFORT UNATT Christie Phan MD [address] [place] [address] Neurological [place] [address] [place] [address] Referral ID Status Reason Start Date Expiration Date Visits Requested Visits Authorized [id number] Authorized Auto-Generat ed Referral 2 03/09/2023 1 1 Specialty Diagnoses / Procedures Referred By Contac t Referred To Contact Diagnoses Somnolence, daytime Chronic fatigue and malaise Obesity, unspecified classification, unspecified obesity type, unspecified whether serious comorbidity present Procedures CONSULT TO LIFESTYLE MEDICINE MD OFFICE/OUTPATIENT [facility] 60-74 MINUTES Jose Najera MD [address] [place] [address] [place] [address] Referral ID Status Reason Start Date Expiration Date V isits Requested Visits Authorized [id number] Closed PCP Requested Referral 03/04/2022 03/04/2023 1 1 Specialty Diagnoses / Procedures Referred By Contac t Referred To Contact Diagnoses Somnolence, daytime Snoring Procedures CONSULT TO SLEEP MEDICINE - ADULT OFFICE/OUTPATIENT [facility] 60-74 MINUTES Jose Najera MD [address] [place] [address] [place] [address] Referral ID Status Reason Start Date Expiration Date Visits Requested Visits Authorized [id number] Authorized PCP Requested Referral 2 03/04/2023 1 [...] REFF BY DR. JOSUE RICHARDSON Back Pain Back Pain FOLLOW UP AFTER MARK SI Reason for Visit Nipple discharge in female Recurrent Clostridioides difficile diarrhea Lumbosacral spondylosis Other chronic pain Sacroiliitis Lumbosacral spondylosis Other chronic pain Sacroiliitis Chief Complaint REFF BY DR. JOSUE RICHARDSON Back Pain Back Pain FOLLOW UP AFTER MARK SI f/u Abdominal pain. Reason for Visit Lumbosacral spondylo sis Other chronic pain Sacroiliitis Lumbosacral spondylosis Other chronic pain Sacroiliitis Additional Source Comments INFORMATION SOURCE (unrecogn ized section and content) DATE CREATED AUTHOR 09/20/2018 [facility] DATE CREATED AUTHOR AUTHOR'S ORGANIZ ATION 12/10/2018 [facility] DATE CREATED AUTHOR AUTHOR'S ORGANIZ ATION 01/13/2019 [facility] DATE CREATED AUTHOR AUTHOR'S ORGANIZ ATION 06/28/2021 [facility] DATE CREATED AUTHOR AUTHOR'S ORGANIZ ATION 10/01/2022 [facility] DATE CREATED AUTHOR AUTHOR'S ORGANIZ ATION 01/29/2024 [facility] DATE CREATED AUTHOR AUTHOR'S ORGANIZ ATION 02/22/2024 [facility] DATE CREATED AUTHOR AUTHOR'S ORGANIZ ATION 02/23/2024 [facility] DATE CREATED AUTHOR AUTHOR'S ORGANIZ ATION 03/10/2024 [facility] DATE CREATED AUTHOR AUTHOR'S ORGANIZ ATION 04/12/2024 [facility] DATE CREATED AUTHOR AUTHOR'S ORGANIZ ATION 04/12/2024 [facility] Reason for Visit (unrecogniz ed section and content) Status Reason Specialty Diagnoses / Procedures Referre d By Contact Referred To Contact [employer] Reason Comments Pain ongoing generalized pain. Reason [...] HIGH MDM 60-74 MINUTES Jose Najera MD [address] [place] [address] [place] [address] Referral ID Status Reason Start Date Expiration Date V isits Requested Visits Authorized [id number] Closed PCP Requested Referral 03/04/2022 03/04/2023 1 1 Reason Comments High Total serum IgM Anemia Reason Comments Consult Specialty Diagnoses / Procedures Referred By Contac t Referred To Contact Immunology Diagnoses Raised level of immunoglobulins Procedures CONSULT TO IMMUNOLOGY OFFICE/OUTPATIENT NEW HIGH MDM 60-[place] [address] [place] [address] Referral ID Status Reason Start Date Expiration Date V isits Requested Visits Authorized [id number] Closed PCP Requested Referral 03/09/2022 03/09/2023 1 1 Reason Comments Pneumovax Reason Comments Refill Request Reason Comments 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 - Other Reason Comments Future Appointment Scheduling questions /concerns Reason Comments PAP Therapy Follow Up Reason Comments PAP [place] [facility] [place]ese Reason Comments Anemia 8 week [...] rate Procedures ECG 12 Lead Michelle Britton, 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 [address] [facility] [address] [place] [address] Referral ID Status Reason Start Date Expiration Date V isits Requested Visits Authorized [id number] Authorized 06/09/2023 06/08/2024 1 1 Reason Comments New Patient Visit Leg Swelling, test r esults from [place] Specialty Diagnoses / Procedures Referred By Contac t Referred To Contact Diagnoses Paroxysmal supraventricular tachycardia PAC (premature atrial contraction) Procedures ECG 12 Lead Lois Holm MD [address] [facility] 2, [address] [place] [address] Referral ID Status Reason Start Date Expiration Date V isits Requested Visits Authorized [id number] Authorized 07/13/2023 07/12/2024 1 1 Reason Onset [...] Comments SPP Inflammatory Conditions - Follow-up 02/14/20 [facility] Insurance Authorization 02/14/2024 KELVIN zhu Submitted Reason Comments Orders PAP RX. Reason Comments 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 - Other Eds scheduling Reason Comments Med Change Request Reason Comments cmn Reason Onset Date Comments SPP Inflammatory Conditions - Medication Refill 03/13/2024 [facility] - NCA 09/2024 Reason Comments Breast Problem Reason Comments Vaginal Bleeding Pt present today for bleeding when she wipes. Reason Comments poss raynauds Specialty Diagnoses / Procedures Referred By Nahid tran Referred To Contact Vascular Surgery Diagnoses Cold extremities Pain of lower extremity, unspecified laterality Gay Enciso, 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 [address] [place] [address] Phone: tel:[phone] fax: Judy Arciniega MD [address] [place] [address] Phone: tel:[phone] fax: Referral ID Status Reason Start Date Expiration Date Visits Requested Visits Authorized [id number] Pending Review Specialty Services Required 03/15/2025 1 1 Reason Onset Date Comments SPP Inflammatory Conditions - Medication Refill 04/11/2024 [facility] Ordered Prescriptions (unrec ognized section and [...] or prosecute any alcohol or drug abuse patient.[facility] the event this information is protected by the Federal Confidentiality of Alcohol and Drug Abuse Patient Records regulations: The Federal rules restrict any use of the information to criminally investigate or prosecute any alcohol or drug abuse patient.[facility] the event this information is protected by the Federal Confidentiality of Alcohol and Drug Abuse Patient Records regulations: The Federal rules restrict any use of the information to criminally investigate or prosecute any alcohol or drug abuse patient.[facility] the event this information is protected by the Federal Confidentiality of Alcohol and Drug Abuse Patient Records regulations: The Federal rules restrict any use of the information to criminally investigate or prosecute any alcohol or drug abuse patient.[facility] Hospital[facility] the event this information is protected by the Federal Confidentiality of Alcohol and Drug Abuse Patient Records regulations: The Federal rules restrict any use of the information to criminally investigate or prosecute any alcohol or drug abuse patient.[facility] Hospital[facility] the event this information is protected by the Federal Confidentiality of Alcohol and Drug Abuse Patient Records regulations: The Federal rules restrict any use of the information to criminally investigate or prosecute any alcohol or drug abuse patient.[facility] Hospital[facility] the event this information is protected by the Federal Confidentiality of Alcohol and Drug Abuse Patient Records regulations: The Federal rules restrict any use of the information to criminally investigate or prosecute any alcohol or drug abuse patient.[facility] Hospital[facility] the event this information is protected by the Federal Confidentiality of Alcohol and Drug Abuse Patient Records regulations: The Federal rules restrict any use of the information to criminally investigate or prosecute any alcohol or drug abuse patient.[facility] Hospital[facility] the event this information is protected by the Federal Confidentiality of Alcohol and Drug Abuse Patient Records regulations: The Federal rules restrict any use of the information to criminally investigate or prosecute any alcohol or drug abuse patient.[facility] Hospital[facility] the event this information is protected by the Federal Confidentiality of Alcohol and Drug Abuse Patient Records regulations: The Federal rules restrict any use of the information to criminally investigate or prosecute any alcohol or drug abuse patient.[facility] Hospital[facility] the event this information is protected by the Federal Confidentiality of Alcohol and Drug Abuse Patient Records regulations: The Federal rules restrict any use of the information to criminally investigate or prosecute any alcohol or drug abuse patient.[facility] Hospital[facility] the event this information is protected by the Federal Confidentiality of Alcohol and Drug Abuse Patient Records regulations: The Federal rules restrict any use of the information to criminally investigate or prosecute any alcohol or drug abuse patient.[facility] Hospital[facility] the event this information is protected by the Federal Confidentiality of Alcohol and Drug Abuse Patient Records regulations: The Federal rules restrict any use of the information to criminally investigate or prosecute any alcohol or drug abuse patient.[facility] Hospital[facility] the event this information is protected by the Federal Confidentiality of Alcohol and Drug Abuse Patient Records regulations: The Federal rules restrict any use of the information to criminally investigate or prosecute any alcohol or drug abuse patient.[facility] Hospital[facility] the event this information is protected by the Federal Confidentiality of Alcohol and Drug Abuse Patient Records regulations: The Federal rules restrict any use of the information to criminally investigate or prosecute any alcohol or drug abuse patient.[facility] Hospital[facility] the event this information is protected by the Federal Confidentiality of Alcohol and Drug Abuse Patient Records regulations: The Federal rules restrict any use of the information to criminally investigate or prosecute any alcohol or drug abuse patient.[facility] HospitalIn the event this information is protected by the Federal Confidentiality of Alcohol and Drug Abuse Patient Records regulations: The Federal rules restrict any use of the information to criminally investigate or prosecute any alcohol or drug abuse patient.[facility] HospitalIn the event this information is protected by the Federal Confidentiality of Alcohol and Drug Abuse Patient Records regulations: The Federal rules restrict any use of the information to criminally investigate or prosecute any alcohol or drug abuse patient.[facility] Hospital[facility] the event this information is protected by the Federal Confidentiality of Alcohol and Drug Abuse Patient Records regulations: The Federal rules restrict any use of the information to criminally investigate or prosecute any alcohol or drug abuse patient.[facility] Hospital[facility] the event this information is protected by the Federal Confidentiality of Alcohol and Drug Abuse Patient Records regulations: The Federal rules restrict any use of the information to criminally investigate or prosecute any alcohol or drug abuse patient.[facility] Hospital[facility] the event this information is protected by the Federal Confidentiality of Alcohol and Drug Abuse Patient Records regulations: The Federal rules restrict any use of the information to criminally investigate or prosecute any alcohol or drug abuse patient.[facility] Hospital[facility] the event this information is protected by the Federal Confidentiality of Alcohol and Drug Abuse Patient Records regulations: The Federal rules restrict any use of the information to criminally investigate or prosecute any alcohol or drug abuse patient.[facility] HospitalIn the event this information is protected by the Federal Confidentiality of Alcohol and Drug Abuse Patient Records regulations: The Federal rules restrict any use of the information to criminally investigate or prosecute any alcohol or drug abuse patient.[facility] HospitalIn the event this information is protected by the Federal Confidentiality of Alcohol and Drug Abuse Patient Records regulations: The Federal rules restrict any use of the information to criminally investigate or prosecute any alcohol or drug abuse patient.[facility] HospitalIn the event this information is protected by the Federal Confidentiality of Alcohol and Drug Abuse Patient Records regulations: The Federal rules restrict any use of the information to criminally investigate or prosecute any alcohol or drug abuse patient.[facility] HospitalIn the event this information is protected by the Federal Confidentiality of Alcohol and Drug Abuse Patient Records regulations: The Federal rules restrict any use of the information to criminally investigate or prosecute any alcohol or drug abuse patient.[facility] HospitalIn the event this information is protected by the Federal Confidentiality of Alcohol and Drug Abuse Patient Records regulations: The Federal rules restrict any use of the information to criminally investigate or prosecute any alcohol or drug abuse patient.[facility] HospitalIn the event this information is protected by the Federal Confidentiality of Alcohol and Drug Abuse Patient Records regulations: The Federal rules restrict any use of the information to criminally investigate or prosecute any alcohol or drug abuse patient.[facility] HospitalIn the event this information is protected by the Federal Confidentiality of Alcohol and Drug Abuse Patient Records regulations: The Federal rules restrict any use of the information to criminally investigate or prosecute any alcohol or drug abuse patient.[facility] HospitalIn the event this information is protected by the Federal Confidentiality of Alcohol and Drug Abuse Patient Records regulations: The Federal rules restrict any use of the information to criminally investigate or prosecute any alcohol or drug abuse patient.[facility] Hospital[facility] the event this information is protected by the Federal Confidentiality of Alcohol and Drug Abuse Patient Records regulations: The Federal rules restrict any use of the information to criminally investigate or prosecute any alcohol or drug abuse patient.[facility] Hospital[facility] the event this information is protected by the Federal Confidentiality of Alcohol and Drug Abuse Patient Records regulations: The Federal rules restrict any use of the information to criminally investigate or prosecute any alcohol or drug abuse patient.[facility] Hospital[facility] the event this information is protected by the Federal Confidentiality of Alcohol and Drug Abuse Patient Records regulations: The Federal rules restrict any use of the information to criminally investigate or prosecute any alcohol or drug abuse patient.[facility] HospitalIn the event this information is protected by the Federal Confidentiality of Alcohol and Drug Abuse Patient Records regulations: The Federal rules restrict any use of the information to criminally investigate or prosecute any alcohol or drug abuse patient.[facility] HospitalIn the event this information is protected by the Federal Confidentiality of Alcohol and Drug Abuse Patient Records regulations: The Federal rules restrict any use of the information to criminally investigate or prosecute any alcohol or drug abuse patient.[facility] HospitalIn the event this information is protected by the Federal Confidentiality of Alcohol and Drug Abuse Patient Records regulations: The Federal rules restrict any use of the information to criminally investigate or prosecute any alcohol or drug abuse patient.[facility] HospitalIn the event this information is protected by the Federal Confidentiality of Alcohol and Drug Abuse Patient Records regulations: The Federal rules restrict any use of the information to criminally investigate or prosecute any alcohol or drug abuse patient.[facility] HospitalIn the event this information is protected by the Federal Confidentiality of Alcohol and Drug Abuse Patient Records regulations: The Federal rules restrict any use of the information to criminally investigate or prosecute any alcohol or drug abuse patient.[facility] HospitalIn the event this information is protected by the Federal Confidentiality of Alcohol and Drug Abuse Patient Records regulations: The Federal rules restrict any use of the information to criminally investigate or prosecute any alcohol or drug abuse patient.[facility] HospitalIn the event this information is protected by the Federal Confidentiality of Alcohol and Drug Abuse Patient Records regulations: The Federal rules restrict any use of the information to criminally investigate or prosecute any alcohol or drug abuse patient.[facility] HospitalIn the event this information is protected by the Federal Confidentiality of Alcohol and Drug Abuse Patient Records regulations: The Federal rules restrict any use of the information to criminally investigate or prosecute any alcohol or drug abuse patient.[facility] HospitalIn the event this information is protected by the Federal Confidentiality of Alcohol and Drug Abuse Patient Records regulations: The Federal rules restrict any use of the information to criminally investigate or prosecute any alcohol or drug abuse patient.[facility] HospitalIn the event this information is protected by the Federal Confidentiality of Alcohol and Drug Abuse Patient Records regulations: The Federal rules restrict any use of the information to criminally investigate or prosecute any alcohol or drug abuse patient.[facility] HospitalIn the event this information is protected by the Federal Confidentiality of Alcohol and Drug Abuse Patient Records regulations: The Federal rules restrict any use of the information to criminally investigate or prosecute any alcohol or drug abuse patient.[facility] HospitalIn the event this information is protected by the Federal Confidentiality of Alcohol and Drug Abuse Patient Records regulations: The Federal rules restrict any use of the information to criminally investigate or prosecute any alcohol or drug abuse patient.[facility] HospitalIn the event this information is protected by the Federal Confidentiality of Alcohol and Drug Abuse Patient Records regulations: The Federal rules restrict any use of the information to criminally investigate or prosecute any alcohol or drug abuse patient.[facility] HospitalIn the event this information is protected by the Federal Confidentiality of Alcohol and Drug Abuse Patient Records regulations: The Federal rules restrict any use of the information to criminally investigate or prosecute any alcohol or drug abuse patient.[facility] HospitalIn the event this information is protected by the Federal Confidentiality of Alcohol and Drug Abuse Patient Records regulations: The Federal rules restrict any use of the information to criminally investigate or prosecute any alcohol or drug abuse patient.[facility] HospitalIn the event this information is protected by the Federal Confidentiality of Alcohol and Drug Abuse Patient Records regulations: The Federal rules restrict any use of the information to criminally investigate or prosecute any alcohol or drug abuse patient.[facility] HospitalIn the event this information is protected by the Federal Confidentiality of Alcohol and Drug Abuse Patient Records regulations: The Federal rules restrict any use of the information to criminally investigate or prosecute any alcohol or drug abuse patient.[facility] HospitalIn the event this information is protected by the Federal Confidentiality of Alcohol and Drug Abuse Patient Records regulations: The Federal rules restrict any use of the information to criminally investigate or prosecute any alcohol or drug abuse patient.[facility] HospitalIn the event this information is protected by the Federal Confidentiality of Alcohol and Drug Abuse Patient Records regulations: The Federal rules restrict any use of the information to criminally investigate or prosecute any alcohol or drug abuse patient.[facility] HospitalIn the event this information is protected by the Federal Confidentiality of Alcohol and Drug Abuse Patient Records regulations: The Federal rules restrict any use of the information to criminally investigate or prosecute any alcohol or drug abuse patient.[facility] HospitalIn the event this information is protected by the Federal Confidentiality of Alcohol and Drug Abuse Patient Records regulations: The Federal rules restrict any use of the information to criminally investigate or prosecute any alcohol or drug abuse patient.[facility] HospitalIn the event this information is protected by the Federal Confidentiality of Alcohol and Drug Abuse Patient Records regulations: The Federal rules restrict any use of the information to criminally investigate or prosecute any alcohol or drug abuse patient.[facility] HospitalIn the event this information is protected by the Federal Confidentiality of Alcohol and Drug Abuse Patient Records regulations: The Federal rules restrict any use of the information to criminally investigate or prosecute any alcohol or drug abuse patient.[facility] HospitalIn the event this information is protected by the Federal Confidentiality of Alcohol and Drug Abuse Patient Records regulations: The Federal rules restrict any use of the information to criminally investigate or prosecute any alcohol or drug abuse patient.[facility] HospitalIn the event this information is protected by the Federal Confidentiality of Alcohol and Drug Abuse Patient Records regulations: The Federal rules restrict any use of the information to criminally investigate or prosecute any alcohol or drug abuse patient.[facility] HospitalIn the event this information is protected by the Federal Confidentiality of Alcohol and Drug Abuse Patient Records regulations: The Federal rules restrict any use of the information to criminally investigate or prosecute any alcohol or drug abuse patient.[facility] HospitalIn the event this information is protected by the Federal Confidentiality of Alcohol and Drug Abuse Patient Records regulations: The Federal rules restrict any use of the information to criminally investigate or prosecute any alcohol or drug abuse patient.[facility] HospitalIn the event this information is protected by the Federal Confidentiality of Alcohol and Drug Abuse Patient Records regulations: The Federal rules restrict any use of the information to criminally investigate or prosecute any alcohol or drug abuse patient.[facility] HospitalIn the event this information is protected by the Federal Confidentiality of Alcohol and Drug Abuse Patient Records regulations: The Federal rules restrict any use of the information to criminally investigate or prosecute any alcohol or drug abuse patient.[facility] HospitalIn the event this information is protected by the Federal Confidentiality of Alcohol and Drug Abuse Patient Records regulations: The Federal rules restrict any use of the information to criminally investigate or prosecute any alcohol or drug abuse patient.[facility] HospitalIn the event this information is protected by the Federal Confidentiality of Alcohol and Drug Abuse Patient Records regulations: The Federal rules restrict any use of the information to criminally investigate or prosecute any alcohol or drug abuse patient.[facility] HospitalIn the event this information is protected by the Federal Confidentiality of Alcohol and Drug Abuse Patient Records regulations: The Federal rules restrict any use of the information to criminally investigate or prosecute any alcohol or drug abuse patient.[facility] HospitalIn the event this information is protected by the Federal Confidentiality of Alcohol and Drug Abuse Patient Records regulations: The Federal rules restrict any use of the information to criminally investigate or prosecute any alcohol or drug abuse patient.[facility] HospitalIn the event this information is protected by the Federal Confidentiality of Alcohol and Drug Abuse Patient Records regulations: The Federal rules restrict any use of the information to criminally investigate or prosecute any alcohol or drug abuse patient.[facility] HospitalIn the event this information is protected by the Federal Confidentiality of Alcohol and Drug Abuse Patient Records regulations: The Federal rules restrict any use of the information to criminally investigate or prosecute any alcohol or drug abuse patient.[facility] HospitalIn the event this information is protected by the Federal Confidentiality of Alcohol and Drug Abuse Patient Records regulations: The Federal rules restrict any use of the information to criminally investigate or prosecute any alcohol or drug abuse patient.[facility] HospitalIn the event this information is protected by the Federal Confidentiality of Alcohol and Drug Abuse Patient Records regulations: The Federal rules restrict any use of the information to criminally investigate or prosecute any alcohol or drug abuse patient.[facility] HospitalIn the event this information is protected by the Federal Confidentiality of Alcohol and Drug Abuse Patient Records regulations: The Federal rules restrict any use of the information to criminally investigate or prosecute any alcohol or drug abuse patient.[facility] HospitalIn the event this information is protected by the Federal Confidentiality of Alcohol and Drug Abuse Patient Records regulations: The Federal rules restrict any use of the information to criminally investigate or prosecute any alcohol or drug abuse patient.[facility] HospitalIn the event this information is protected by the Federal Confidentiality of Alcohol and Drug Abuse Patient Records regulations: The Federal rules restrict any use of the information to criminally investigate or prosecute any alcohol or drug abuse patient.[facility] HospitalIn the event this information is protected by the Federal Confidentiality of Alcohol and Drug Abuse Patient Records regulations: The Federal rules restrict any use of the information to criminally investigate or prosecute any alcohol or drug abuse patient.[facility] HospitalIn the event this information is protected by the Federal Confidentiality of Alcohol and Drug Abuse Patient Records regulations: The Federal rules restrict any use of the information to criminally investigate or prosecute any alcohol or drug abuse patient.[facility] HospitalIn the event this information is protected by the Federal Confidentiality of Alcohol and Drug Abuse Patient Records regulations: The Federal rules restrict any use of the information to criminally investigate or prosecute any alcohol or drug abuse patient.[facility] HospitalIn the event this information is protected by the Federal Confidentiality of Alcohol and Drug Abuse Patient Records regulations: The Federal rules restrict any use of the information to criminally investigate or prosecute any alcohol or drug abuse patient.[facility] HospitalIn the event this information is protected by the Federal Confidentiality of Alcohol and Drug Abuse Patient Records regulations: The Federal rules restrict any use of the information to criminally investigate or prosecute any alcohol or drug abuse patient.[facility] HospitalIn the event this information is protected by the Federal Confidentiality of Alcohol and Drug Abuse Patient Records regulations: The Federal rules restrict any use of the information to criminally investigate or prosecute any alcohol or drug abuse patient.[facility] HospitalIn the event this information is protected by the Federal Confidentiality of Alcohol and Drug Abuse Patient Records regulations: The Federal rules restrict any use of the information to criminally investigate or prosecute any alcohol or drug abuse patient.[facility] HospitalIn the event this information is protected by the Federal Confidentiality of Alcohol and Drug Abuse Patient Records regulations: The Federal rules restrict any use of the information to criminally investigate or prosecute any alcohol or drug abuse patient.[facility] HospitalIn the event this information is protected by the Federal Confidentiality of Alcohol and Drug Abuse Patient Records regulations: The Federal rules restrict any use of the information to criminally investigate or prosecute any alcohol or drug abuse patient.[facility] HospitalIn the event this information is protected by the Federal Confidentiality of Alcohol and Drug Abuse Patient Records regulations: The Federal rules restrict any use of the information to criminally investigate or prosecute any alcohol or drug abuse patient.[facility] HospitalIn the event this information is protected by the Federal Confidentiality of Alcohol and Drug Abuse Patient Records regulations: The Federal rules restrict any use of the information to criminally investigate or prosecute any alcohol or drug abuse patient.[facility] HospitalIn the event this information is protected by the Federal Confidentiality of Alcohol and Drug Abuse Patient Records regulations: The Federal rules restrict any use of the information to criminally investigate or prosecute any alcohol or drug abuse patient.[facility] HospitalIn the event this information is protected by the Federal Confidentiality of Alcohol and Drug Abuse Patient Records regulations: The Federal rules restrict any use of the information to criminally investigate or prosecute any alcohol or drug abuse patient.[facility] HospitalIn the event this information is protected by the Federal Confidentiality of Alcohol and Drug Abuse Patient Records regulations: The Federal rules restrict any use of the information to criminally investigate or prosecute any alcohol or drug abuse patient.[facility] HospitalIn the event this information is protected by the Federal Confidentiality of Alcohol and Drug Abuse Patient Records regulations: The Federal rules restrict any use of the information to criminally investigate or prosecute any alcohol or drug abuse patient.[facility] HospitalIn the event this information is protected by the Federal Confidentiality of Alcohol and Drug Abuse Patient Records regulations: The Federal rules restrict any use of the information to criminally investigate or prosecute any alcohol or drug abuse patient.[facility] HospitalIn the event this information is protected by the Federal Confidentiality of Alcohol and Drug Abuse Patient Records regulations: The Federal rules restrict any use of the information to criminally investigate or prosecute any alcohol or drug abuse patient.[facility] HospitalIn the event this information is protected by the Federal Confidentiality of Alcohol and Drug Abuse Patient Records regulations: The Federal rules restrict any use of the information to criminally investigate or prosecute any alcohol or drug abuse patient.[facility] HospitalIn the event this information is protected by the Federal Confidentiality of Alcohol and Drug Abuse Patient Records regulations: The Federal rules restrict any use of the information to criminally investigate or prosecute any alcohol or drug abuse patient.[facility] HospitalIn the event this information is protected by the Federal Confidentiality of Alcohol and Drug Abuse Patient Records regulations: The Federal rules restrict any use of the information to criminally investigate or prosecute any alcohol or drug abuse patient.[facility] HospitalIn the event this information is protected by the Federal Confidentiality of Alcohol and Drug Abuse Patient Records regulations: The Federal rules restrict any use of the information to criminally investigate or prosecute any alcohol or drug abuse patient.[facility] HospitalIn the event this information is protected by the Federal Confidentiality of Alcohol and Drug Abuse Patient Records regulations: The Federal rules restrict any use of the information to criminally investigate or prosecute any alcohol or drug abuse patient.[facility] HospitalIn the event this information is protected by the Federal Confidentiality of Alcohol and Drug Abuse Patient Records regulations: The Federal rules restrict any use of the information to criminally investigate or prosecute any alcohol or drug abuse patient.[facility] HospitalIn the event this information is protected by the Federal Confidentiality of Alcohol and Drug Abuse Patient Records regulations: The Federal rules restrict any use of the information to criminally investigate or prosecute any alcohol or drug abuse patient.[facility] HospitalIn the event this information is protected by the Federal Confidentiality of Alcohol and Drug Abuse Patient Records regulations: The Federal rules restrict any use of the information to criminally investigate or prosecute any alcohol or drug abuse patient.[facility] HospitalIn the event this information is protected by the Federal Confidentiality of Alcohol and Drug Abuse Patient Records regulations: The Federal rules restrict any use of the information to criminally investigate or prosecute any alcohol or drug abuse patient.[facility] HospitalIn the event this information is protected by the Federal Confidentiality of Alcohol and Drug Abuse Patient Records regulations: The Federal rules restrict any use of the information to criminally investigate or prosecute any alcohol or drug abuse patient.[facility] HospitalIn the event this information is protected by the Federal Confidentiality of Alcohol and Drug Abuse Patient Records regulations: The Federal rules restrict any use of the information to criminally investigate or prosecute any alcohol or drug abuse patient.[facility] HospitalIn the event this information is protected by the Federal Confidentiality of Alcohol and Drug Abuse Patient Records regulations: The Federal rules restrict any use of the information to criminally investigate or prosecute any alcohol or drug abuse patient.[facility] HospitalIn the event this information is protected by the Federal Confidentiality of Alcohol and Drug Abuse Patient Records regulations: The Federal rules restrict any use of the information to criminally investigate or prosecute any alcohol or drug abuse patient.[facility] HospitalIn the event this information is protected by the Federal Confidentiality of Alcohol and Drug Abuse Patient Records regulations: The Federal rules restrict any use of the information to criminally investigate or prosecute any alcohol or drug abuse patient.[facility] HospitalIn the event this information is protected by the Federal Confidentiality of Alcohol and Drug Abuse Patient Records regulations: The Federal rules restrict any use of the information to criminally investigate or prosecute any alcohol or drug abuse patient.[facility] HospitalIn the event this information is protected by the Federal Confidentiality of Alcohol and Drug Abuse Patient Records regulations: The Federal rules restrict any use of the information to criminally investigate or prosecute any alcohol or drug abuse patient.[facility] HospitalIn the event this information is protected by the Federal Confidentiality of Alcohol and Drug Abuse Patient Records regulations: The Federal rules restrict any use of the information to criminally investigate or prosecute any alcohol or drug abuse patient.[facility] HospitalIn the event this information is protected by the Federal Confidentiality of Alcohol and Drug Abuse Patient Records regulations: The Federal rules restrict any use of the information to criminally investigate or prosecute any alcohol or drug abuse patient.[facility] HospitalIn the event this information is protected by the Federal Confidentiality of Alcohol and Drug Abuse Patient Records regulations: The Federal rules restrict any use of the information to criminally investigate or prosecute any alcohol or drug abuse patient.[facility] HospitalIn the event this information is protected by the Federal Confidentiality of Alcohol and Drug Abuse Patient Records regulations: The Federal rules restrict any use of the information to criminally investigate or prosecute any alcohol or drug abuse patient.[facility] HospitalIn the event this information is protected by the Federal Confidentiality of Alcohol and Drug Abuse Patient Records regulations: The Federal rules restrict any use of the information to criminally investigate or prosecute any alcohol or drug abuse patient.[facility] HospitalIn the event this information is protected by the Federal Confidentiality of Alcohol and Drug Abuse Patient Records regulations: The Federal rules restrict any use of the information to criminally investigate or prosecute any alcohol or drug abuse patient.[facility] HospitalIn the event this information is protected by the Federal Confidentiality of Alcohol and Drug Abuse Patient Records regulations: The Federal rules restrict any use of the information to criminally investigate or prosecute any alcohol or drug abuse patient.[facility] HospitalIn the event this information is protected by the Federal Confidentiality of Alcohol and Drug Abuse Patient Records regulations: The Federal rules restrict any use of the information to criminally investigate or prosecute any alcohol or drug abuse patient.[facility] Care Teams (unrecognized sec tion and content) Team Status: Active Member Role Status Mark Salomon MD Primary Care Provider Active Team Status: Inactive Member Role Status Makr Salomon MD Primary Care Provider Active Start: [...] November 04, 2023 End: November 04, 2023 Brush Cleaner Relationship Specialty Start Date End Date Gay Enciso, LEGAL BILLING COORDINATOR.GEAR KEEPER [id number] [facility] [place] [address] PCP - General Family Practice 10/24/21 Brush Cleaner Relationship Specialty Start Date End Date Gay Enciso, LEGAL BILLING COORDINATOR.GEAR KEEPER [address] [facility] [place] [address] PCP - General Family Medicine 10/24/21 Madelaine Ferris MD [address] [facility] [address] Referring Family Medicine 02/12/22 Brush Cleaner Relationship Specialty Start Date End Date Madelaine Ferris MD [address] [facility] [address] PCP - General Family Medicine 02/27/22 Madelaine Ferris MD [address] [facility] [address] Referring Family Medicine 02/12/22 Brush Cleaner Relationship Specialty Start Date End Date Madelaine Ferris MD [address] [facility] [address] PCP - General Family Medicine 02/27/22 Madelaine Ferris MD [address] [facility] [place] [address] Referring Family Medicine 02/12/22 Brush Cleaner Relationship Specialty Start Date End Date Madelaine Ferris MD [address] [facility] [address] PCP - General Family Medicine 02/27/22 Madelaine Ferris MD [address] [facility] [address] Referring Family Medicine 02/12/22 Brush Cleaner Relationship Specialty Start Date End Date Madelaine Ferris MD [address] [facility] [place] [address] PCP - General Family Medicine 02/27/22 Madelaine Ferris MD [address] [facility] [place] [address] Referring Family Medicine 02/12/22 Brush Cleaner Relationship Specialty Start Date End Date Madelaine Ferris MD [address] [facility] [place] [address] PCP - General Family Medicine 02/27/22 Madelaine Ferris MD [address] [facility] [place] [address] Referring Family Medicine 02/12/22 Brush Cleaner Relationship Specialty Start Date End Date Madelaine Ferris MD [address] [facility] [place] [address] PCP - General Family Medicine 02/27/22 Madelaine Ferris MD [address] [facility] [place] [address] Referring Family Medicine 02/12/22 Brush Cleaner Relationship Specialty Start Date End Date Madelaine Ferris MD [address] [facility] [place] [address] PCP - General Family Medicine 02/27/22 Madelaine Ferris MD [address] [facility] [place] [address] Referring Family Medicine 02/12/22 Brush Cleaner Relationship Specialty Start Date End Date Madelaine Ferris MD [address] [facility] [place] [address] PCP - General Family Medicine 02/27/22 Madelaine Ferris MD [address] [facility] [place] [address] Referring Family Medicine 02/12/22 Brush Cleaner Relationship Specialty Start Date End Date Madelaine Ferris MD [address] [facility] [place] [address] PCP - General Family Medicine 02/27/22 Madelaine Ferris MD [address] [facility] [place] [address] Referring Family Medicine 02/12/22 Brush Cleaner Relationship Specialty Start Date End Date Madelaine Ferris MD [address] [facility] [place] [address] PCP - General Family Medicine 02/27/22 Madelaine Ferris MD [address] [facility] [place] [address] Referring Family Medicine 02/12/22 Brush Cleaner Relationship Specialty Start Date End Date Madelaine Ferris MD [address] [facility] [place] [address] PCP - General Family Medicine 02/27/22 Madelaine Ferris MD [address] [facility] [place] [address] Referring Family Medicine 02/12/22 Brush Cleaner Relationship Specialty Start Date End Date Madelaine Ferris MD [address] [facility] [place] [address] PCP - General Family Medicine 02/27/22 Madelaine Ferris MD [address] [facility] [place] [address] Referring Family Medicine 02/12/22 Brush Cleaner Relationship Specialty Start Date End Date Madelaine Ferris MD [address] [facility] [place] [address] PCP - General Family Medicine 02/27/22 Madelaine Ferris MD [address] [facility] [place] [address] Referring Family Medicine 02/12/22 Brush Cleaner Relationship Specialty Start Date End Date Madelaine Ferris MD [address] [facility] [place] [address] PCP - General Family Medicine 02/27/22 Madelaine Ferris MD [address] [facility] [place] [address] Referring Family Medicine 02/12/22 Brush Cleaner Relationship Specialty Start Date End Date Madelaine Ferris MD [address] [facility] [place] [address] PCP - General Family Medicine 02/27/22 Madelaine Ferris MD [address] [facility] [place] [address] Referring Family Medicine 02/12/22 Brush Cleaner Relationship Specialty Start Date End Date Madelaine Ferris MD [address] [facility] [place] [address] PCP - General Family Medicine 02/27/22 Madelaine Ferris MD [address] [facility] [place] [address] Referring Family Medicine 02/12/22 Brush Cleaner Relationship Specialty Start Date End Date Madelaine Ferris MD [address] [facility] [place] [address] PCP - General Family Medicine 02/27/22 Madelaine Ferris MD [address] [facility] [place] [address] Referring Family Medicine 02/12/22 Brush Cleaner Relationship Specialty Start Date End Date Madelaine Ferris MD [address] [facility] [place] [address] PCP - General Family Medicine 02/27/22 Madelaine Ferris MD [address] [facility] [place] [address] Referring Family Medicine 02/12/22 Brush Cleaner Relationship Specialty Start Date End Date Madelaine Ferris MD [address] [facility] [place] [address] PCP - General Family Medicine 02/27/22 Madelaine Ferris MD [address] [facility] [place] [address] Referring Family Medicine 02/12/22 Brush Cleaner Relationship Specialty Start Date End Date Madelaine Ferris MD [address] [place] [address] PCP - General Family Medicine 02/27/22 Madelaine Ferris MD [address] [facility] [place] [address] Referring Family Medicine 02/12/22 Brush Cleaner Relationship Specialty Start Date End Date Madelaine Ferris MD [address] [facility] [place] [address] PCP - General Family Medicine 02/27/22 Madelaine Ferris MD [address] [facility] [place] [address] Referring Family Medicine 02/12/22 Brush Cleaner Relationship Specialty Start Date End Date Madelaine Ferris MD PCP - General Family Medicine 02/27/22 Madelaine Ferris MD Referring Family Medicine 02/12/22 Brush Cleaner Relationship Specialty Start Date End Date Madelaine Ferris MD PCP - General Family Medicine 02/27/22 Madelaine Ferris MD Referring Family Medicine 02/12/22 Brush Cleaner Relationship Specialty Start Date End Date Madelaine Ferris MD PCP - General Family Medicine 02/27/22 Madelaine Ferris MD Referring Family Medicine 02/12/22 Brush Cleaner Relationship Specialty Start Date End Date Madelaine Ferris MD PCP - General Family Medicine 02/27/22 Madelaine Ferris MD Referring Family Medicine 02/12/22 Brush Cleaner Relationship Specialty Start Date End Date Madelaine Ferris MD PCP - General Family Medicine 02/27/22 Madelaine Ferris MD Referring Family Medicine 02/12/22 Brush Cleaner Relationship Specialty Start Date End Date Madelaine Ferris MD PCP - General Family Medicine 02/27/22 Madelaine Ferris MD Referring Family Medicine 02/12/22 Brush Cleaner Relationship Specialty Start Date End Date Madelaine Ferris MD PCP - General Family Medicine 02/27/22 Madelaine Ferris MD Referring Family Medicine 02/12/22 Brush Cleaner Relationship Specialty Start Date End Date Madelaine Ferris MD PCP - General Family Medicine 02/27/22 Madelaine Ferris MD Referring Family Medicine 02/12/22 Brush Cleaner Relationship Specialty Start Date End Date Madelaine Ferris MD PCP - General Family Medicine 02/27/22 Madelaine Ferris MD Referring Family Medicine 02/12/22 Brush Cleaner Relationship Specialty Start Date End Date Madelaine Ferris MD PCP - General Family Medicine 02/27/22 Madelaine Ferris MD Referring Family Medicine 02/12/22 Brush Cleaner Relationship Specialty Start Date End Date Madelaine Ferris MD PCP - General Family Medicine 02/27/22 Madelaine Ferris MD Referring Family Medicine 02/12/22 Brush Cleaner Relationship Specialty Start Date End Date Madelaine Ferris MD PCP - General Family Medicine 02/27/22 Madelaine Ferris MD Referring Family Medicine 02/12/22 Brush Cleaner Relationship Specialty Start Date End Date Madelaine Ferris MD PCP - General Family Medicine 02/27/22 Madelaine Ferris MD Referring Family Medicine 02/12/22 Brush Cleaner Relationship Specialty Start Date End Date Madelaine Ferris MD PCP - General Family Medicine 02/27/22 Madelaine Ferris MD Referring Family Medicine 02/12/22 Brush Cleaner Relationship Specialty Start Date End Date Madelaine Ferris MD PCP - General Family Medicine 02/27/22 Madelaine Ferris MD Referring Family Medicine 02/12/22 Brush Cleaner Relationship Specialty Start Date End Date Madelaine Ferris MD PCP - General Family Medicine 02/27/22 Madelaine Ferris MD Referring Family Medicine 02/12/22 Brush Cleaner Relationship Specialty Start Date End Date Madelaine Ferris MD PCP - General Family Medicine 02/27/22 Madelaine Ferris MD Referring Family Medicine 02/12/22 Brush Cleaner Relationship Specialty Start Date End Date Madelaine Ferris MD PCP - General Family Medicine 02/27/22 Madelaine Ferris MD Referring Family Medicine 02/12/22 Brush Cleaner Relationship Specialty Start Date End Date Madelaine Ferris MD PCP - General Family Medicine 02/27/22 Madelaine Ferris MD Referring Family Medicine 02/12/22 Brush Cleaner Relationship Specialty Start Date End Date Madelaine Ferris MD PCP - General Family Medicine 02/27/22 Madelaine Ferris MD Referring Family Medicine 02/12/22 Brush Cleaner Relationship Specialty Start Date End Date Madelaine Ferris MD PCP - General Family Medicine 02/27/22 Madelaine Ferris MD Referring Family Medicine 02/12/22 Brush Cleaner Relationship Specialty Start Date End Date Madelaine Ferris MD PCP - General Family Medicine 02/27/22 Madelaine Ferris MD Referring Family Medicine 02/12/22 Brush Cleaner Relationship Specialty Start Date End Date Madelaine Ferris MD PCP - General Family Medicine 02/27/22 Madelaine Ferris MD Referring Family Medicine 02/12/22 Brush Cleaner Relationship Specialty Start Date End Date Madelaine Ferris MD PCP - General Family Medicine 02/27/22 Madelaine Ferris MD Referring Family Medicine 02/12/22 Brush Cleaner Relationship Specialty Start Date End Date Madelaine Ferris MD PCP - General Family Medicine 02/27/22 Madelaine Ferris MD Referring Family Medicine 02/12/22 Brush Cleaner Relationship Specialty Start Date End Date Madelaine Ferris MD PCP - General Family Medicine 02/27/22 Madelaine Ferris MD Referring Family Medicine 02/12/22 Brush Cleaner Relationship Specialty Start Date End Date Charles MitchellDO [address] [facility] [place] [address] PCP - General 10/22/18 Michelle Britton, 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 [address] [address] Nurse Practitioner Cardiology 06/08/23 Brush Cleaner Relationship Specialty Start Date End Date Gay Enciso, 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 [address] [place] [address] PCP - General 07/13/23 Michelle Britton, 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 [address] [address] Nurse Practitioner Cardiology 06/08/23 Aurora Patel MD [address] [address] Consulting Physician Cardiology 06/23/23 Brush Cleaner Relationship Specialty Start Date End Date Madelaine Ferris MD PCP - General Family Medicine 02/27/22 Madelaine Ferris MD Referring Family Medicine 02/12/22 Brush Cleaner Relationship Specialty Start Date End Date Madelaine Ferris MD PCP - General Family Medicine 02/27/22 Madelaine Ferris MD Referring Family Medicine 02/12/22 Team Status: Active Member Role Status Dates Lui Salomon MD Primary Care Provider Active Start: July 28, 2023 Virgil Green MD Attending Provider Active S tart: July 28, 2023 Brush Cleaner Relationship Specialty Start Date End Date Madelaine Ferris MD PCP - General Family Medicine 02/27/22 Madelaine Ferris MD Referring Family Medicine 02/12/22 Team Status: Inactive Member Role Status Dates Lui Salomon MD Primary Care Provider Active Start: December 16, 2023 End: December 16, 2023 Mirela Kelsey MD Attending Provider Active Sta rt: December 16, 2023 End: December 16, 2023 Brush Cleaner Relationship Specialty Start Date End Date Madelaine Ferris MD PCP - General Family Medicine 02/27/22 Madelaine Ferris MD Referring Family Medicine 02/12/22 Brush Cleaner Relationship Specialty Start Date End Date Madelaine Ferris MD PCP - General Family Medicine 02/27/22 Madelaine Ferris MD Referring Family Medicine 02/12/22 Brush Cleaner Relationship Specialty Start Date End Date Madelaine Ferris MD PCP - General Family Medicine 02/27/22 Madelaine Ferris MD Referring Family Medicine 02/12/22 Brush Cleaner Relationship Specialty Start Date End Date Madelaine [...] February 16, 2024 End: February 16, 2024 Team Status: Active Member Role Status Dates Adolfo Kang MD Attending Provider, Other Provider Active Start: February 16, 2024 WALESKA Galloway Primary Care Provider Active Start: February 16, 2024 Team Status: Inactive Member Role Status Dates Adolfo Kang MD Attending Provider Active Sta rt: February 28, 2024 End: February 28, 2024 WALESKA Galloway Primary Care Provider Active Start: February 28, 2024 End: February 28, 2024 Brush Cleaner Relationship Specialty Start Date End Date Charles Mitchell MD [address] [facility] [place] [address] PCP - General Family Medicine 02/09/24 Team Status: Inactive Member Role Status Dates Gay Enciso , POST TRONIC MACHINE OPERATOR-C Primary Care Provider Active Start: March 16, 2024 End: March 16, 2024 Bandar Portillo APRN Attending Provider Active Start: March 16, 2024 End: March 16, 2024 Brush Cleaner Relationship Specialty Start Date End Date Charles Mitchell MD [address] [place] [address] PCP - General Family Medicine 02/09/24 Brush Cleaner Relationship Specialty Start Date End Date Charles Mitchell MD [address] [place] [address] PCP - General Family Medicine 02/09/24 Brush Cleaner Relationship Specialty Start Date End Date Charles Mitchell MD [address] [place] [address] PCP - General Family Medicine 02/09/24 Brush Cleaner Relationship Specialty Start Date End Date Charles Mitchell MD [address] [place] [address] PCP - General Family Medicine 02/09/24 Brush Cleaner Relationship Specialty Start Date End Date Charles Mitchell MD [address] [facility] [place] [place] [place] [address] PCP - General Family Medicine 02/09/24 Brush Cleaner Relationship Specialty Start Date End Date Madelaine Ferris MD PCP - General Family Medicine 02/27/22 Madelaine Ferris MD Referring Family Medicine 02/12/22 Brush Cleaner Relationship Specialty Start Date End Date Charles Mitchell MD [address] [place] [address] PCP - General Family Medicine 02/09/24 Inactive Administered Medications - up to 3 [...] BE BASED ON THE PRIMARY CLINICAL RECORDS. [facility] provides no warranty or guarantee of the accuracy or completeness of information in this document.
--- NOTE | 2024-04-15 16:56 | ED_ITS ---
HPI HPI - General Adult General Chief complaint: Skin/Abscess/Foreign Body Stated complaint: LUMP ON BACK OF LEG Time Seen by Provider: 04/15/24 16:37 Source: patient Mode of arrival: walk-in Limitations: no limitations History of Present Illness HPI narrative: Patient is a 43-year-old female who presents to the emergency department with concern that she may have a blood clot or sarcoma in her leg. She states she noticed an area of swelling in the back of the left calf with certain positions and states the area is sore. She states she looked it up online and the Internet made her feel like she may have a blood clot or sarcoma in her leg and she wanted to get it checked out. She has a history of lupus. No mechanism of injury or trauma. No redness, wounds or swelling noted. Related Data Home Medications ?Medication ?Instructions ?Recorded ?Confirmed 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 50 mg tablet 150 mg PO DAILY 12/18/22 04/15/24 ergocalciferol (vitamin D2) 1,250 1,250 mcg PO .3 times weekly 12/18/22 04/15/24 mcg (50,000 unit) capsule folic acid 1 mg tablet 1 mg PO DAILY 12/18/22 04/15/24 hydroxychloroquine 200 mg tablet 200 mg PO BID 12/18/22 04/15/24 metoprolol tartrate 25 mg tablet 200 mg PO Q12H 12/18/22 04/15/24 prednisone 10 mg tablet 10 mg PO DAILY 12/18/22 04/15/24 pregabalin 75 mg capsule 75 mg PO Q8H 12/18/22 04/15/24 metoprolol tartrate 50 mg tablet 200 mg PO DAILY 07/07/23 04/15/24 amlodipine 5 mg tablet 5 mg PO DAILY 04/15/24 04/15/24 cephalexin 500 mg capsule 500 mg PO Q12H 04/15/24 04/15/24 duloxetine 20 mg capsule,delayed 20 mg PO DAILY 04/15/24 04/15/24 release famotidine 20 mg tablet 20 mg PO BEDTIME 04/15/24 04/15/24 vancomycin 125 mg capsule mg 04/15/24 Previous Rx's ?Medication ?Instructions ?Recorded methocarbamol 750 mg tablet 750 mg PO TID PRN pain #12 tabs 04/15/24 Allergies Allergy/AdvReac Type Severity Reaction Status Date / Time Bactrim Allergy Intermediate Uncoded 07/07/23 22:18 Opioid HPI Opioid Management Most Recent Opioid Data: Last Pain Scale 5 06/26/23 21:04 06/26/23 Review of Systems ROS Constitutional Denies: fever or chills Ears, nose, mouth, and throat Denies: throat pain or nasal congestion Cardiovascular Denies: swelling of feet/ankles Respiratory Denies: cough Gastrointestinal Denies: nausea or vomiting Musculoskeletal Reports: extremity pain; Denies: back pain, neck pain or extremity swelling Integumentary/Breast Denies: rash, redness or skin pain Hematologic/Lymphatic Denies: easy bruising or easy bleeding PFSH PFSH Social History Smoking status: Current every day smoker Exam Narrative Exam Narrative: Gen.: Awake, alert, in no distress Head: Normocephalic, atraumatic ENT: Moist mucous membranes Respiratory: No respiratory distress Extremities: Bilateral calves are soft and nontender, with the patient sitting in the bedside chair and flexing her left foot, there is a minimal area of swelling noted to the inferior aspect of the gastrocnemius. No fluctuance or open wounds. Psych: Normal mood and affect Neuro: No focal neuro deficit Skin: Warm, dry, intact Constitutional Vital Signs, click to edit/add: Last Vital Signs Temp 98.5 F 04/15/24 16:41 Pulse 87 04/15/24 16:41 Resp 18 04/15/24 16:41 BP 154/101 H 04/15/24 16:41 Pulse Ox 99 04/15/24 16:41 O2 Del Method Room Air 04/15/24 16:41 Course Vital Signs Vital signs: Vital Signs Temperature 98.5 F 04/15/24 16:41 Pulse Rate 87 04/15/24 16:41 Respiratory Rate 18 04/15/24 16:41 Blood Pressure 154/101 H 04/15/24 16:41 Pulse Oximetry 99 04/15/24 16:41 Oxygen Delivery Method Room Air 04/15/24 16:41 Temperature 98.5 F 04/15/24 16:41 Pulse Rate 87 04/15/24 16:41 Respiratory Rate 18 04/15/24 16:41 Blood Pressure 154/101 H 04/15/24 16:41 Pulse Oximetry 99 04/15/24 16:41 Oxygen Delivery Method Room Air 04/15/24 16:41 Medical Decision Making MDM Narrative Medical decision making narrative: Exam is benign with no asymmetric calf swelling or redness. No evidence of abscess or cellulitis. Patient's primary concern is blood clot, we do not have ultrasound services available at this time or for the rest of the weekend until Wednesday. She was offered a shot of Lovenox and an ultrasound order form. She states that in the past she was told she may have a blood clot in her lungs and was given a prescription of Xarelto. She states she was told that she did not have a blood clot so she was instructed to stop the Xarelto which she still has at home. Patient questions if she should just restart the Xarelto over the weekend until she has her ultrasound, I feel this is reasonable as she is hemodynamically stable. She was instructed to resume her Xarelto today and tomorrow and have an ultrasound performed on Wednesday, if she is positive for DVT, she will be referred back to the emergency department for critical result. Return to the ER if symptoms change or worsen. Patient was given an appointment time of 8 AM to have her ultrasound as an outpatient on Wednesday. SHARED APC VISIT, PHYSICIAN ATTESTATION: [id number] I performed a substantive part of the MDM during the patient?s E/M visit. I personally evaluated and examined the patient. I personally made or approved the documented management plan and acknowledge its risk of complications. Medical Records Medical records reviewed: Yes I reviewed the patient's medical records Discharge Plan Discharge Chief Complaint: Skin/Abscess/Foreign Body Clinical Impression: Pain of left calf Patient Disposition: Home, Self-Care Time of Disposition Decision: 16:52 Condition: Good Prescriptions / Home Meds: New methocarbamol 750 mg tablet 750 mg PO TID PRN (Reason: pain) Qty: 12 0RF No Action 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 50 mg tablet 150 mg PO DAILY ergocalciferol (vitamin D2) 1,250 mcg (50,000 unit) capsule 1,250 mcg PO .3 times weekly folic acid 1 mg tablet 1 mg PO DAILY hydroxychloroquine 200 mg tablet 200 mg PO BID metoprolol tartrate 25 mg tablet 200 mg PO Q12H prednisone 10 mg tablet 10 mg PO DAILY pregabalin 75 mg capsule 75 mg PO Q8H metoprolol tartrate 50 mg tablet 200 mg PO DAILY amlodipine 5 mg tablet 5 mg PO DAILY cephalexin 500 mg capsule 500 mg PO Q12H duloxetine 20 mg capsule,delayed release(DR/EC) 20 mg PO DAILY famotidine 20 mg tablet 20 mg PO BEDTIME vancomycin 125 mg capsule Print Language: Belarusian Instructions: Leg Pain (ED) Additional Instructions: Call [phone] extension [phone] for centralized scheduling 8am Wednesday morning for your ultrasound as an outpatient Referrals: SAMSON ENCISO [Primary Care Provider] - 1 week
== END 2024-04-15 17:21 | disposition home or self-care (01) ==
PROVIDERS: Emergency Provider Emergency Medicine; PCP Nurse Practitioner Family
DX: M79.662 Pain in left lower leg (principal); F17.200 Nicotine dependence, unspecified, uncomplicated
CPT/HCPCS: 99283

== ENCOUNTER 2024-04-17 07:43 | Outpatient (OUT) | payer OTHER, SELFPAY ==
--- NOTE | 2024-04-17 07:47 | US_ITS ---
The [address] [address] Patient Name: JONES HALEY MRN: [id number] date: 1980 Sex: F Assigned Patient Location: [facility] Current Patient Location: RAD Accession/Order Number: [id number] Exam Date: 04/17/2024 08:15 Report Date: 04/17/2024 14:56 At the request of: BHARGAV MURPHY Procedure: US venous doppler LE LT EXAM: US venous doppler LE LT HISTORY: Left Leg Pain COMPARISON: 02/11/2024 TECHNIQUE: Multiple sonographic images of the deep veins of the left lower extremity were obtained, supplemented with Doppler. FINDINGS: The deep veins of the left lower extremity are fairly well-visualized from the groin to the mid calf. No filling defect is identified in the deep veins to indicate a thrombus. There is normal compression augmentation to flow throughout. At the region of the reported palpable lump in the mid calf, no focal abnormality is identified. US/US venous doppler LE LT IMPRESSION: There is no direct or indirect evidence of deep vein thrombosis in the left lower extremity at this time. Similar findings were noted in the prior study. No focal abnormality is readily identified in the soft tissues at the site of palpable lump in the calf. Electronically authenticated by: DARIN VORA Date: 04/17/2024 14:56
== END 2024-04-17 07:44 | disposition home or self-care (01) ==
LOC: RAD 07:44
PROVIDERS: PCP Nurse Practitioner Family; Visit Provider Physician Assistant
DX: M79.605 Pain in left leg (principal)
CPT/HCPCS: 93971

== ENCOUNTER 2024-04-26 10:39 | Outpatient (OUT) | payer OTHER, SELFPAY ==
--- NOTE | 2024-04-26 10:40 | VEIN_ITS ---
The [address] [address] Patient Name: JONES HALEY MRN: [id number] date: 1980 Sex: F Assigned Patient Location: Current Patient Location: Accession/Order Number: [id number] Exam Date: 04/26/2024 10:45 Report Date: 04/26/2024 12:29 At the request of: HAYDEN MATHEW Procedure: VC SEGMENTAL PRESSURES EXAM: VC SEGMENTAL PRESSURES HISTORY: I73.9 COMPARISON: None. FINDINGS: Segmental pressures presented as follows (right, left) in mmHg. Brachial: 102, 109 Upper thigh: 175, 183 Lower thigh: 166, 177 Calf: 140, 143 DPA: 123, 148 FISHERIES OFFICER: 139, 155 1st Toe: 141, 143 SAMUEL: 1.28, 1.42 TBI: 1.29, 1.31 The ABIs are Normal The TBI's are normal PVR waveforms: Right leg: Thigh: Normal Above knee: Normal Below knee: Normal Right ankle: Normal Left leg: Thigh: Normal Above knee: Normal Below knee: Normal Right ankle: Normal VEIN/VC SEGMENTAL PRESSURES IMPRESSION: Normal exam Electronically authenticated by: AURORA SHAIKH Date: 04/26/2024 12:29
== END 2024-04-26 10:40 | disposition home or self-care (01) ==
LOC: VC 10:39
PROVIDERS: PCP Nurse Practitioner Family; Visit Provider Student in an Organized Health Care Education/Training Program
DX: R20.9 Unspecified disturbances of skin sensation (principal); M79.606 Pain in leg, unspecified; M32.9 Systemic lupus erythematosus, unspecified; I73.9 Peripheral vascular disease, unspecified
CPT/HCPCS: 93923

== ENCOUNTER 2024-05-15 13:10 | Outpatient (OUT) | payer OTHER, SELFPAY ==
[2024-05-15 13:29] LABS: Basophils Absolute Auto 0.1 10^3/uL (0.0-0.1); Basophils Percent Auto 0.6 % (0.2-2.0); Eosinophils Absolute Auto 0.1 10^3/uL (0.0-0.7); Eosinophils Percent Auto 0.6 % (0.9-7.0); Hematocrit 42.7 % (36.0-48.0); Hemoglobin 13.4 g/dL (12.0-16.0); Immature Granulocytes Abs Auto 0.09 10^3/uL (0.00-0.03); Immature Granulocytes Pct Auto 0.7 % (0.0-0.5); Lymphocytes Absolute Auto 2.1 10^3/uL (1.2-3.8); Lymphocytes Percent Auto 16.4 % (20.5-60.0); Mean Corpuscular HGB Conc 31.4 g/dL (29.9-35.2); Mean Corpuscular Hemoglobin 30.2 pg (26.7-34.0); Mean Corpuscular Volume 96.2 fL (81.0-99.0); Mean Platelet Volume 9.9 fL (9.5-13.5); Monocytes Absolute Auto 0.7 10^3/uL (0.3-0.8); Monocytes Percent Auto 5.8 % (1.7-12.0); Neutrophils Absolute Auto 9.6 10^3/uL (1.4-6.5); Neutrophils Percent Auto 75.9 % (43.0-75.0); Platelet Count 305 10^3/uL (150-450); Red Blood Count 4.44 10^6/uL (4.20-5.40); Red Cell Distribution Width 14.2 % (11.0-15.0); White Blood Count 12.6 10^3/uL (4.0-11.0)
== END 2024-05-15 13:11 | disposition home or self-care (01) ==
LOC: LAB 13:11
PROVIDERS: PCP Nurse Practitioner Family; Visit Provider Nurse Practitioner Family
DX: R59.9 Enlarged lymph nodes, unspecified (principal)
CPT/HCPCS: 36415; 85025

== ENCOUNTER 2024-06-06 19:45 | Outpatient (REF) | payer OTHER, SELFPAY ==
--- OUTSIDE RECORDS SUMMARY | 2024-06-06 20:00 | XMS_ITS | CCD ---
Author Organization [facility] Care Team Providers Care Occ Therapist Name Role Phone MICHELNERY VICTOR MANUEL Lynne Referring Unavailable Unavailable Primary Care Provider UnavailJONAS Stuart Referring Unavailable Britt NURSE PRN.TRUE, Gay Primary Care Provider [phone] Mirela Kelsey Unavailable Britt NURSE PRN.HYPERION ESSBASE DEVELOPER, Gay Primary Care Provider Manuel Ferris MD Unavailable Manuel Ferris MD Primary Care Provider Manuel Ferris MD Unavailable Manuel Ferris MD Primary Care Provider [phone] Manuel Ferris MD Unavailable Manuel Ferris MD Primary Care Provider [phone] MANUEL LEYVA Primary Care Unavailable MISC, DR SMITH Consulting Unavailable MISC, DR SMITH Attending Unavailable MISC, DR SMITH Admitting Unavailable MANUEL GOMEZ Consulting Unavailable HAY ., DR GALLEGOS [...] Unavailable HOY ., DR BURKETT Attending Unavailable HOCristina ., DR BURKETT Admitting Unavailable BUFFY, DR DIETZ Consulting Unavailable BUFFY, DR DIEZT Attending Unavailable BUFFY, DR DIETZ Admitting Unavailable GAY ENCISO Primary Care Unavailable BUFFY, DR DIETZ Consulting Unavailable BLANK, DR DIETZ Attending Unavailable BLANK, DR DIETZ Admitting Unavailable HOY ., DR BURKETT Primary Care Unavailable PARMJIT ., OLY Attending Unavailable PARMJIT ., OLY Admitting Unavailable WEST, DR AURORA Pacheco Consulting Unavailable HOY ., [...] Unavailable MARISSA, DR SAYDA Nelson Consulting Unavailable Lady Mitchell DO Primary Care Provider Mitali NURSE PRN-HYPERION ESSBASE DEVELOPERMichelle Unavailable [phone] Unavailable Primary Care Provider UnavailAurora Carney MD Unavailable Britt NURSE PRN-HYPERION ESSBASE DEVELOPER, Gay S Primary Care Provider Manuel Ferris MD Primary Care Provider [phone] ALHAJI HEAD Attending Unavailable MANUEL FERRIS Primary Care Unavailable MD Adolfo Kang Attending Provider WALESKA Enciso Natalie Primary Care Provider dAolfo Kang Attending Unavailable Adolfo Kang Admitting Unavailable Britt Gay Natalie Primary Care Unavailable MICHELLE BRITTON Attending Unavailable LADY MITCHELL Primary Care Unavailable MICHELLE BRITTON Referring Unavailable LOIS HOLM Attending Unavailable BRITT, GAY S Primary Care Unavailable LOIS HOLM Attending Unavailable BRITT, GAY S Primary Care Unavailable Lady Mitchell MD Primary Care Provider CALOS MENDOZA Attending Unavailable Unavailable Primary Care Provider UnavailZITA Edmondson Attending Unavailab KADE Mejía Attending Unavailable ZITA ROGERS Attending Unavailab BERNABE Cedillo Attending Unavailable GORDO BARFIELD Attending Unavailable GAY ENCISO Referring Unavailable KADE RICHARDSON Attending Unavailable GRAZIANI, ZITA M Referring Unavailab le KEN, ZITA M Attending Unavailab LUAN Yates Attending Unavailable DIGNA PRICE Attending Unavailable KEN, ZITA Suarez Attending Unavailab le GRAZIANI, ZITA M Referring Unavailab le GRAZIANI, ZITA M Attending Unavailab susan ROGERS, ZITA M Referring Unavailab LUAN Yates Attending Unavailable OLY PARNELL Attending Unavailable MARKY MIKE Attending Unavailable GORDO BARFIELD Attending Unavailable GAY ENCISO Referring Unavailable HOY, MANUEL M Primary Care Unavailable HOY, MANUEL M Primary Care Unavailable HOY, MANUEL M Primary Care Unavailable HOY, MANUEL M Primary Care Unavailable ABJANNIE, VERA Attending Unavailable HOY, MANUEL M Primary Care Unavailable HOY, MNAUEL M Primary Care Unavailable HOY, MANUEL M Primary Care Unavailable HOY, MANUEL M Primary Care Unavailable HOY, MANUEL M Primary Care Unavailable HOY, MANUEL M Primary Care Unavailable HOY, MANUEL M Primary Care Unavailable CAROLINEAR, VERA Referring Unavailable HOY, MANUEL M Primary Care Unavailable CHRISTIE PHAN Referring Unavailable CHRISTIE PHAN Attending Unavailable HOY, MANUEL M Primary Care Unavailable ABHYANKAR, VERA Referring Unavailable HOY, MANUEL M Primary Care Unavailable CAROLINEARVENUSEK Attending Unavailable HOY, MANUEL M Primary Care Unavailable JULI NARAYANAN Attending Unavailable HOY, MANUEL M Primary Care Unavailable HOY, MANUEL M Primary Care Unavailable HOY, MANUEL M Primary Care Unavailable LEXUS HECK Attending Unavailable HOY, MANUEL M Primary Care Unavailable HOY, MANUEL M Primary Care Unavailable HOY, MANUEL M Primary Care Unavailable HOY, MANUEL M Primary Care Unavailable HOY, MANUEL M Primary Care Unavailable HOY, MANUEL M Primary Care Unavailable HOY, MANUEL M Primary Care Unavailable HOY, MANUEL M Primary Care Unavailable DANIA, VERA Attending Unavailable HOY, MANUEL M Primary Care Unavailable HOY, MANUEL M Primary Care Unavailable LYNNE NI Attending Unavailable HOY, MANUEL M Primary Care Unavailable HOY, MANUEL M Primary Care Unavailable LYNNE NI Referring Unavailable LYNNE NI Attending Unavailable HOY, MANUEL M Primary Care Unavailable Allergies Allergy Classification Reported Allergen(s) Allergy Type Date of Onset Reaction(s) Facility Dihydrofolate Reductase Inhibitors (antibiotic) (3 sources) Trimethoprim Drug Allergy Other: See Comments [facility] Doxycycline (3 sources) Doxycycline Drug Allergy Other: See Comments [facility] Latex (3 sources) Latex Substance Allergy Rash [facility] Lincosamides (antibiotic) (3 sources) Clindamycin Drug Allergy Unknown [facility] Opioid Agonists (3 sources) Codeine Drug Allergy Other: See Comments [facility] Sulfamethoxazole / Trimethoprim (4 sources) Sulfamethoxazole / Trimethoprim Drug Allergy [facility] Sulfonamides (antibiotic) (3 sources) Sulfamethoxazole Drug Allergy Other: See Comments [facility] Work Phone: (20 sources) Codeine; Translations: [CODEINE] Drug Allergy Other: See Comments [facility] (20 sources) Latex; Translations: [LATEX] Drug Allergy Rash [facility] (20 sources) Sulfamethoxazole; Translations: [SULFAMETHOXAZOLE] Drug Allergy GI Upset, Other: See Comments [facility] (20 sources) Clindamycin; Translations: [CLINDAMYCIN] Drug Allergy Unknown [facility] (4 sources) Sulfamethoxazole / Trimethoprim Drug Allergy lymph swelling [facility] Other (20 sources) Doxycycline; Translations: [DOXYCYCLINE] Drug Allergy Other: See Comments, Other, Unknown, Other (See Comments) [facility] (20 sources) Sulfamethoxazole / Trimethoprim; Translations: [SULFAMETHOXAZOLE-T RIMETHOPRIM] Drug Allergy Swelling, Other, GI Disturbance, Other (See Comments) [facility] (20 sources) Trimethoprim; Translations: [TRIMETHOPRIM] Drug Allergy Other: See Comments [facility] (1 source) Latex Drug allergy (disorder) [facility] (1 source) Sulfamethoxazole / Trimethoprim Drug Allergy [facility] (20 sources) Sulfamethoxazole Allergy to substance 023 [facility] (20 sources) Latex Propensity to adverse reactions 015 [facility] (1 source) Clindamycin Drug Allergy [facility] (1 source) Sulfamethoxazole Drug Allergy 024 [facility] (1 source) Trimethoprim Drug Allergy [facility] (1 source) Omeprazole; Translations: [OMEPRAZOLE] Drug Allergy [facility] Rep[facility] (1 source) pantoprazole; Translations: [PANTOPRAZOLE] Drug Allergy [facility] Medications Current Medications Medication Drug Class(es) Dates Sig (Normalized) Sig (Original) ALPRAZolam 0.25 mg oral tablet (20 sources) Benzodiazepine Start: 06-24-2023 take 1 tablet [...] tablet Chew 81 mg in the morning. Active Comment on above: Take 81 mg by mouth. azaTHIOprine 50 mg oral tablet (20 sources) Purine Antimetabolite Start: 05-24-2023 End: 11-11-2023 take 3 tablets by mouth in the morning azaTHIOprine (Imuran) 50 MG tablet Take 150 mg by mouth in the morning. 05/24/2023 Active Start: 05-24-2023 take 50 mg by mouth twice ankur y Azathioprine Active 50 MG PO Twice daily October 20, 2023 12:00am Start: 05-24-2023 take 50 mg by mouth [...] OR ILL. baclofen 5 mg oral tablet (20 sources) gamma-Aminobutyric Acid-ergic Agonist Start: End: take [...] the skin 1 (one) time per week 02/04/2023 Active Comment on above: Inject 200mg (1 pen) subcutaneously once weekly cephalexin 500 mg oral capsule (5 sources) Cephalosporin Antibacterial Start: 023 cephalexin (Keflex) 500 MG capsule Indications: Postoperative stitch abscess Take 1 tablet twice a day x 7 days 14 capsule 0 01/07/2023 Active Keflex Active chlorhexidine gluconate 40 m g/ml medicated liquid soap (20 sources) Start: 11-01-2023 End: 04-16-2024 Chlorhexidine Gluconate [...] 03/16/2024 Discontinued clindamycin 0.01 mg/mg topical gel (20 sources) Lincosamide Antibacterial Start: 10-06-2023 clindamycin (Clindagel) [...] 10/23/2022 Active clotrimazole 10 mg oral lozenge (2 sources) Azole Antifungal Start: 04-05-2024 clotrimazole (MYCELEX) 10 [...] information. diclofenac sodium 0.01 mg/mg topical gel (20 sources) Nonsteroidal Anti-inflammatory Drug Start: 02-01-2024 diclofenac [...] every week ergocalciferol (Vitamin D-2) 1.25 MG (44516 UT) capsule Take 1 capsule (50,000 Units) [...] every week ergocalciferol (Vitamin D2) 1.25 MG (73188 UT) capsule Take 50,000 Units by mouth [...] Ethinyl Estradiol / Ferrous fumarate / Norethindrone (10 sources) Estrogen Start: 4 End: 5 take 1 tablet by mouth once daily norethindrone-ethin yl estradiol-iron (Lo Loestrin Fe) 1 MG-10 MCG / 10 MCG tablet Indications: Menorrhagia with regular cycle Take 1 tablet by mouth Daily Take 1 tablet by mouth daily 28 tablet 11 03/23/2024 02/22/2025 Active famotidine 20 mg oral tablet (7 sources) Histamine-2 Receptor Antagonist Start: 4 End: 5 take 1 tablet by mouth at bedtime famotidine (Pepcid) 20 MG tablet Indications: LPRD (laryngopharyngeal reflux disease) Take 1 tablet (20 mg) by mouth at bedtime 90 tablet 04/10/2024 07/09/2024 Active Start: 07-21-2020 End: 10-24-2021 take 1 tablet by mouth once daily at bedtime famotidine (PEPCID) 20 mg tablet Take 20 mg by mouth daily at bedtime. 0 07/21/2020 10/24/2021 Discontinued take 1 tablet by ce th twice daily as needed famotidine (PEPCID) 20 mg tablet Take 1 tablet (20 mg total) by mouth 2 (two) times a day as needed. Active Comment on above: Take 20 mg by mouth daily at bedtime. fludrocortisone acetate 0.1 mg oral tablet (3 [...] propionate 0.05 mg/actuat metered dose nasal spray (20 sources) Corticosteroid Start: 12-04-2023 take 2 spray(s) [...] oral tablet (20 sources) Start: 03-18-2022 End: 11-26-2023 take 1 tablet by mouth once daily folic acid 1 mg tablet Indications: Vitamin B12 deficiency Take 1 tablet by mouth once daily. 90 tablet 3 11/28/2023 Active Comment on above: Take 1 tablet by ce th once daily. TAKE 1 TABLET BY CE TH EVERY DAY hydroxychloroquine sulfate 200 mg [...] 3 10/24/2021 Active take 1 tablet by ce th in the morning hydroxychloroquine 400 mg [...] MG tablet every 8 (eight) hours. Active ibuprofen (MOTRI N) 200 mg tablet Take 600 mg by mouth. Active take 1 tablet by ce every six hours as needed for pain [...] PO Daily October 20, 2023 12:00am Start: 05-25-2022 take 2 tablets by mo [facility] in the morning metoprolol tartrate (Lopressor) 50 MG tablet Take 100 mg by mouth in the morning and 100 mg before bedtime. 04/23/2023 Active Start: 05-25-2022 take 1 tablet by ce twice daily metoprolol tartrate, short acting, (LOPRESSOR) [...] Active Naltrexone (15 sources) Opioid Antagonist Start: End: 3 take 1 capsule by mouth once daily naltrexone capsule 1 mg TAKE ONE CAPSULE BY MOUTH DAILY 0 01/19/2022 07/25/2022 Discontinued Start: 01-19-2022 take 1 capsule by mo [facility] once daily naltrexone capsule 1 mg [...] 0.4 mg unde r the tongue. nystatin [id number] unt/ml oral suspension (20 sources) Polyene Antifungal Start: 01-27-2024 End: 02-03-2024 [...] omeprazole 40 mg delayed release oral capsule (7 sources) Proton Pump Inhibitor Start: 04-10-2024 End: 07-09-2024 take 1 capsule by mouth before mealtime omeprazole (PriLOSEC) [address] capsule Indications: LPRD (laryngopharyngeal reflux disease) Take 1 capsule (40 mg) by mouth in the morning. Take before meals. Do not crush or chew.. 90 capsule 04/10/2024 07/09/2024 Active Start: 03-16-2024 take 40 mg by mouth [...] of therapy completed) take 2 capsules by [facility] once daily omeprazole (PRILOSEC) 20 MG delayed release capsule Take 40 mg by mouth daily 0 Active Comment on above: Take 1 capsule by mo nhh twice daily. ondansetron 4 mg disintegrating oral tablet (2 sources) Serotonin-3 Receptor Antagonist Start: take 1 tablet by mouth every six hours as needed for nausea and vomiting ondansetron ODT (Zofran-ODT) 4 MG disintegrating tablet DISSOLVE 1 TABLET IN MOUTH EVERY 6 HOURS NEEDED FOR NAUSEA AND VOMITING 0 06/27/2023 Active phentermine hydrochloride 37.5 mg oral tablet (20 sources) Sympathomimetic Amine Anorectic Start: End: take 1 tablet by mouth before mealtime phentermine (Adipex-P) 37.5 MG tablet Take 37.5 mg by mouth in the morning. Take before meals. 05/26/2023 Active Comment on above: Take 1 tablet by ce daily before breakfast for 30 days. Take 1 tablet by ce th daily before breakfast for 90 days. [...] Discontinued Start: 05-12-2023 take 1 tablet by ce th once daily predniSONE (Deltasone) 10 mg [...] chloride infusion tacrolimus 0.001 mg/mg topical ointment (20 sources) Calcineurin Inhibitor Immunosuppressant Start: 08-16-2023 tacrolimus (Protopic) 0.1 % ointment APPLY TO AFFECTED AREA TWICE DAILY WHEN FLARED 08/16/2023 Active Start: 08-16-2023 tacrolimus (OR OTOPIC) 0.1 % ointment Apply 1 Application topically as needed. 08/16/2023 Active thiamine 100 mg oral tablet (20 sources) Start: 06-01-2023 End: 02-06-2025 take 1 [...] Comment on above: Take 1 tablet by ce th two times a day. tretinoin 0.5 mg/ml topical cream (20 sources) Retinoid Start: 07-15-2023 tretinoin (Retin-A) 0.05 % cream Indications: Striae atrophic Apply to face, once daily at evening/night time, 30 day supply 20 g 11 07/15/2023 Active triamcinolone acetonide 0.25 mg/ml topical lotion (20 sources) Corticosteroid Start: 06-23-2022 Triamcinolone Acetonide 0.025 % lotion 1 application. 06/23/2022 Active triamcinolone ac etonide (KENALOG) 0.025 % lotion Apply 1 Application topically as needed. Active Vitamin D 50 MCG (1999 UT) (4 sources) take 1 tablet by ce th every week Vitamin D 50 MCG (1999 UT) 1 tablet Orally weekly Active Completed/Discontinued Medications Medication Drug Class(es) Dates Sig (Normalized) Sig (Original) acetaminophen 325 mg oral tablet (20 sources) Start: 05-19-2024 End: 05-19-2024 take 1 dose by mouth once, then take 4000 mg by mouth once daily 650 mg, ORAL, ONCE, 1 dose, On Wed05/19/24 at 1000, No more than 4000 mg of acetaminophen should be given per day (FROM ALL SOURCES) acetaminophen (T ylenol) 325 MG tablet every 4 (four) hours. Active acetaminophen (T YLENOL) 500 mg tablet Take 1,000 mg by mouth. Active take 1 tablet by ce th every six hours as needed acetaminophen (TYLENOL) 325 mg tablet Ta ke 1 tablet (325 mg total) by mouth every 6 (six) hours as needed. Active acetaminophen (T YLENOL) 500 mg tablet Take 1,000 mg by mouth. 0 Active Comment on above: Take 1,000 mg by ce th. acyclovir 400 mg oral tablet (20 sources) Herpesvirus Nucleoside Analog DNA Polymerase Inhibitor, Herpes Simplex Virus Nucleoside Analog DNA Polymerase Inhibitor, Herpes Zoster Virus Nucleoside Analog DNA Polymerase Inhibitor Start: 10-04-19 End: 04-26-20 23 take 1 tablet by mouth once daily acyclovir (ZOVIRAX) 400 mg tablet Take 400 mg by mouth once daily. 0 10/03/2021 04/26/2023 Discontinued (Discontinued by Patient) Comment on above: Take 400 mg by mouth once daily. amLODIPine 5 mg oral tablet (8 sources) Dihydropyridine Calcium Channel Judie Start: 02-03-20 24 End: 03-16-20 24 take 1 tablet by mouth once daily amLODIPine (Norvasc) 5 MG tablet Take 5 mg by mouth Daily 02/03/2024 03/16/2024 Discontinued Start: 10-07-2020 take 1 tablet by ce th once daily amLODIPine (NORVASC) 2.5 MG [...] by mouth. dexamethasone 2 mg oral tablet (9 sources) Corticosteroid Start: 4 End: 4 dexAMETHasone (Decadron) 2 MG tablet Indications: Lumbosacral radiculopathy at L5 2mg 3 pills po X3 days,2 pills po daily X3 days , then 1 pill po daily X3 days then stop 9 days 18 pills 18 tablet 1 01/20/2024 03/16/2024 Discontinued dicyclomine hydrochloride 10 mg oral capsule (14 sources) Anticholinergic Start: End: take 1 capsule [...] 1 capsule orally twice a day prn diphenhydrAMINE (1 source) Histamine-1 Receptor Antagonist Start: 05-19-2024 End: 05-19-2024 25 mg, INTRAVENOUS, ONCE, 1 dose, On Wed05/19/24 at 1000 0.5 ml dulaglutide 3 mg/ml auto-injector (20 [...] Obesity, Class III, BMI 40-49.9 (morbid obesity) ([facility]) , Pre-diabetes Inject 0.75 mg subcutaneously one [...] Comment on above: Take [address] [facility] once daily. fidaxomicin 200 mg oral tablet (14 sources) Macrolide Antibacterial Start: End: take 1 tablet by mouth every other day Fidaxomicin (Dificid) 200 mg tablet Discontinued 200 MG PO .every other day October 20, 2023 12:00am December 16, 2023 2:11pm Start: 10-20-2023 End: 12-16-2023 take 1 tablet by mouth every twelve hours Fidaxomicin (Dificid) 200 mg tablet Discontinued 200 MG PO Every 12 hours 12 03October 20, 2023 12:00am December 16, 2023 2:11pm gentamicin 0.001 mg/mg topical ointment (5 sources) Start: 11-22-2023 End: 12-16-2023 Gentamicin Discontinued 1 APPLIC TOPICAL Three times daily 07 03November 22, 2023 12:00am December 16, 2023 2:12pm hydrocortisone 100 mg injection (1 source) Corticosteroid Start: 05-19-2024 End: 05-19-2024 50 mg, INTRAVENOUS, ONCE, 1 dose, On Wed05/19/24 at 1000 Start: 05-19-2024 End: 05-19-2024 50 mg, INTRAVENOUS, ONCE, 1 dose, On Wed05/19/24 at 1000 immune globulin (human) (IgG) 35 g in empty bag Total Volume 350 mL (GAMMAGARD) (1 source) Start: 05-19-2024 End: 05-19-2024 35 g (rounded from 34.72 g = 0.4 g/kg/dose 86.8 kg Treatment plan adjusted weight), INTRAVENOUS, ONCE, 1 dose, On Wed05/19/24 at 1030, EXP: 0945 05/21/24 Refrigerate - Prepared as a 10% solution - Brand: Lot: Total Volume., Infusion regimen: Standard, Starting rate (mL/kg/hr): 0.5 mL/kg/hr, Rate after 30 min (mL/kg/hr): 1 mL/kg/hr, Titration rate/max: Increase by 1 mL/kg/hr every 30 minutes thereafter to a max of 5 mL/kg/hr unless signs or symptoms of reaction itraconazole 100 mg oral capsule (3 sources) Azole Antifungal Start: 04-03-2024 End: 04-08-2024 take 1 capsule by mouth once daily itraconazole (Sporanox) 100 MG capsule Indications: Oral thrush Take 1 capsule (100 mg) by mouth Daily for 5 days 5 capsule 04/03/2024 04/08/2024 pantoprazole 40 mg delayed release oral tablet (14 sources) Proton Pump Inhibitor Start: 01-26-2024 End: 03-16-2024 take 1 [...] day. pravastatin sodium 20 mg oral tablet (16 sources) HMG-CoA Reductase Inhibitor Start: 01-26-2024 End: 03-16-2024 take 1 tablet by mouth once daily pravastatin (Pravachol) 20 MG tablet Take 20 mg by mouth Daily 01/26/2024 03/16/2024 Discontinued Start: 10-20-2023 End: 10-20-2023 take 20 mg by mouth once daily Pravastatin Discontinue d 20 MG PO Daily October 20, 2023 12:00am October 20, 2023 1:08pm Start: 06-24-2023 take 1 tablet by ce once daily pravastatin (Pravachol) 20 MG tablet [...] by mo uth three times a day VIT/IRON FUMARATE/FA ( [...] Comment on above: Take 1 tablet by [facility] once daily. rivaroxaban 15 mg oral tablet (9 sources) Factor Xa Inhibitor Start: 12-06-19 End: 03-16-20 take 1 tablet by mouth at mealtime Xarelto 15 MG tablet Take 15 mg by mouth in the evening. Take with meals 12/06/2023 03/16/2024 Discontinued simvastatin 20 mg oral tablet (20 sources) HMG-CoA Reductase Inhibitor Start: 03-10-20 End: 04-26-20 simvastatin (ZOCOR) 20 mg tablet terbinafine 250 mg oral tablet (3 sources) Allylamine Antifungal Start: 04-02-20 End: 04-07-20 take 1 tablet by mouth once daily terbinafine (LamISIL) 250 MG tablet Indications: Oral thrush Take 1 tablet (250 mg) by mouth Daily for 5 days 5 tablet 04/02/2024 04/03/2024 Discontinued vitamin b12 1 mg/ml injectable solution (10 sources) Vitamin B12 Start: 04-26-20 End: 04-26-20 inject 1 dose by intramuscular injection once 1,000 mcg, INTRAMUSCULAR, ONCE, 1 dose, On Wed04/26/24 at 0930 Start: 03-23-2024 End: 03-23-2024 inject 1 dose by intramuscular injection once 1,000 mcg, INTRAMUSCULAR, ONCE, 1 dose, On Delmi 03/23/24 at 1030 Start: 02-21-2024 End: 02-21-2024 inject 1 dose by intramuscular injection once 1,000 mcg, INTRAMUSCULAR, ONCE, 1 dose, On 02/21/24 at 1100 Start: 01-25-2024 End: 01-25-2024 inject 1 dose by intramuscular injection once 1,000 mcg, INTRAMUSCULAR, ONCE, 1 dose, On 9/3/24 at 1130 Start: 12-28-2023 inject 1 mL [...] [Unspecified abdominal pain] 09-22-2023 Episodic Anxiety disorders (20 sources) Anxiety; Translations: [Anxiety disorder, unspecified] Onset: 4 06-09-2023 Chronic Bacterial infection; unspecified site (1 source) Bacterial infection due to Pseudomonas; Translations: [Other bacterial infections of unspecified site] 01-27-2024 Episodic Cardiac dysrhythmias (20 sources) Postural orthostatic tachycardia syndrome ; Translations: [POTS (postural orthostatic tachycardia syndrome)] Onset: Chronic Deficiency and other anemia (4 sources) Anemia of chronic disease; Translations: [Anemia in other chronic diseases classified elsewhere] Chronic Disorders of lipid metabolism (20 sources) Hyperlipidemia; Translations: [Hyperlipidemia, unspecified] Onset: 5 05-31-2014 Chronic Esophageal disorders (20 sources) Laryngopharyngeal reflux; Translations: [Gastro-esophageal reflux disease without esophagitis] Onset: 4 07-06-2023 Chronic Essential hypertension (20 sources) Essential hypertension; Translations: [Essential (primary) hypertension] Onset: 4 06-09-2023 Chronic Fever of unknown origin (1 source) Pyrexia of unknown origin; Translations: [Fever, unspecified] 04-26-2023 Episodic Immunity disorders (15 sources) Hypogammaglobulinemia; 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] Onset: 4 [...] sources) Drug therapy status; Translations: [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 custodial 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] Episodic Other aftercare (1 source) Polypharmacy ; 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] Episodic Other aftercare (1 source) Long-term 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 drug therapy; Translations: [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] 11-11-2023 Episodic [...] [Pain in leg, unspecified] 04-06-2024 Episodic Other ear and sense organ disorders (2 sources) Pain of ear structure; Translations: [Otalgia, right ear] 04-10-2024 Episodic Other female genital disorders (2 sources) Abnormal uterine bleeding; Translations: [Abnormal uterine and vaginal bleeding, unspecified] 03-23-2024 Chronic Other gastrointestinal disorders (7 sources) Diarrhea; Translations: [Diarrhea, unspecified] 09-22-2023 Episodic Other gastrointestinal disorders (3 sources) Diarrhea, unspecified; Translations: [Diarrhea] 09-22-2023 Episodic Other infections; including parasitic (14 sources) Disorder due to infection; Translations: [Personal history of other infectious and parasitic diseases] Onset: 4 04-01-2024 Episodic Other infections; including parasitic (1 source) Personal history of other infectious and parasitic diseases; Translations: [Frequent infections] Onset: 4 Episodic Other inflammatory condition of skin (20 sources) Discoid lupus erythematosus; 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] Onset: 2 03-12-2022 Chronic Other inflammatory condition of skin (4 sources) Discoid lupus erythematosus; Translations: [DISCOID LUPUS ERYTHEMATOSUS] Onset: 2 Chronic Other inflammatory condition of skin (2 sources) Lupus erythematosus; 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] Onset: [...] pain] 04-26-2023 Chronic Other nervous system disorders (20 sources) Disorder of autonomic nervous system; Translations: [Disorder of the autonomic nervous system, unspecified] Onset: 4 06-09-2023 Chronic Other nervous system disorders (8 sources) Other chronic pain; Translations: [Other chronic pain] Onset: 4 01-28-2024 Chronic Other nervous system disorders (2 sources) Disorder of the autonomic nervous system, unspecified; Translations: [Disorder of the autonomic nervous system, unspecified] Onset: 4 Chronic Other nervous system disorders (4 sources) Cold extremity; Translations: [Unspecified disturbances of skin sensation] 04-06-2024 Episodic Other nervous system disorders (1 source) Numbness; Translations: [Anesthesia of skin] 02-07-2024 Episodic Other nutritional; endocrine; and metabolic disorders [...] Onset: 2 Episodic Other upper respiratory disease (20 sources) Chronic pharyngolaryngitis; Translations: [Chronic laryngitis] Onset: 4 07-06-2023 Chronic Ovarian cyst (1 source) Unspecified ovarian cyst, left side; Translations: [UNSPECIFIED OVARIAN CYST LEFT SIDE] Onset: 3 Episodic Peripheral and visceral atherosclerosis (2 sources) Peripheral vascular disease; Translations: [Peripheral vascular disease, unspecified] 04-28-2024 Chronic Residual codes; unclassified (20 sources) Obstructive sleep [...] 07-13-2023 Episodic Rheumatoid arthritis and related disease (3 sources) Rheumatoid arthritis; Translations: [Rheumatoid arthritis, unspecified] [...] lupus erythematosus] Onset: 2 Chronic Thyroid disorders (20 sources) Thyroid nodule; Translations: [Nontoxic single thyroid nodule] Onset: 4 08-10-2023 Chronic Unclassified (1 source) Supraventricular tachycardia, unspecified (CMS-HCC); Translations: [Supraventricular tachycardia, unspecified (CMS-HCC)] Onset: 4 Unclassified (1 source) Supraventricular tachycardia, unspecified; Translations: [Supraventricular tachycardia, unspecified] Onset: 4 Past or Other Problems Problem Classification Problem Date Documented Date Episodic/Chronic Cardiac dysrhythmias (20 sources) Tachycardia, unspecified; Translations: [Tachycardia] Onset: 10-15-2021 Resolved: 11-26-2021 Episodic Coma; stupor; and brain damage (20 sources) Daytime somnolence; Translations: [Somnolence] Onset: 05-20-2022 Episodic Conditions associated with dizziness or vertigo (20 sources) Dizziness; Translations: [Dizziness and giddiness] Onset: [...] to vitamin B12 deficiency] Onset: 03-04-2022 Episodic Diabetes mellitus without complication (9 sources) Increased glucose level; Translations: [Other abnormal glucose] Onset: 03-09-2022 Episodic Diseases of mouth; excluding dental (20 sources) Oral lesion; Translations: [Unspecified lesions of oral mucosa] Onset: 07-06-2023 07-06-2023 Episodic E Codes: Fall (1 source) Fall on same level from slipping, tripping and stumbling without subsequent striking against object, initial encounter; Translations: [FALL SAME LVL SLIP NO STRK OBJ INIT] Onset: 03-23-2022 Episodic Headache; including migraine (20 sources) Headache; Translations: [Nonintractable episodic headache] Onset: [...] Onset: 03-05-2021 03-05-2021 Episodic Nonmalignant breast conditions (20 sources) Discharge from nipple; Translations: [Nipple discharge] Onset: 11-15-2023 12-16-2023 Episodic Nutritional deficiencies (20 sources) Cobalamin deficiency; Translations: [Deficiency of other specified B group vitamins] Onset: 05-31-2014 Episodic Other aftercare (20 sources) Drug therapy finding; 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] Onset: 03-05-2021 Episodic Other aftercare (20 sources) H/O: high risk medication; Translations: [Other custodial (current) drug therapy] Onset: 06-15-2022 06-15-2022 Episodic Other aftercare (1 source) 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; Translations: [OTH 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 THERAPY] Onset: 03-23-2022 Episodic Other aftercare (20 sources) Long-term 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 systemic steroid; Translations: [USP (current) use of 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] Onset: 02-04-2023 [...] 03-05-2021 03-05-2021 Episodic Other connective tissue disease (20 sources) Enthesopathy of hip region; Translations: [Other specified enthesopathies of unspecified lower limb, excluding foot] Onset: 07-06-2023 07-06-2023 Episodic Other connective tissue disease (20 sources) Muscle pain; Translations: [Myalgia, unspecified site] [...] Onset: 03-21-2022 Episodic Other lower respiratory disease (20 sources) Dyspnea; Translations: [Shortness of breath] Onset: 07-13-2023 07-13-2023 Episodic Other lower respiratory disease (1 source) Shortness of breath; Translations: [Shortness of breath] Onset: 07-13-2023 Episodic Other nervous system disorders (20 sources) Ataxia; Translations: [Ataxia, unspecified] Onset: 05-31-2014 05-31-2014 Episodic Other nervous system disorders (20 sources) Skin sensation disturbance; Translations: [Unspecified disturbances of skin sensation] Onset: 07-06-2023 07-06-2023 Episodic Other nervous system disorders (20 sources) Paresthesia; Translations: [Paresthesia of skin] Onset: 11-08-2023 11-08-2023 Episodic Other non-traumatic joint disorders (20 sources) Hip pain; Translations: [Pain in unspecified hip] Onset: 07-06-2023 06-18-2014 Episodic Other non-traumatic joint disorders (5 sources) [...] Onset: 03-05-2021 Episodic Other upper respiratory disease (20 sources) Hoarse; Translations: [Dysphonia] Onset: 08-10-2023 08-10-2023 [...] Test Name Value Interpretation Reference Range Facility CBC W Auto Differential pane l (Bld)on 05-19-2024 Basophils (Bld) [#/Vol] 0.08 [facility]*3/[facility] Basophils/100 WBC (Bld) 0.6 % [facility] Differential cell count method Nom (Bld) Auto [facility] Eosinophils (Bld) [#/Vol] 0.17 10*3/uL [facility] Eosinophils/100 WBC (Bld) 1.2 % [facility] Erythrocyte distribution width (RBC) [Ratio] 14.3 % 11.5 - 15.0 % [facility] Hematocrit (Bld) [Volume fraction] 39.8 % 36.0 - 46.0 % [facility] Hemoglobin (Bld) [Mass/Vol] 13.4 g/dL 11.5 - 15.5 g/dL [facility] Immature granulocytes (Bld) [#/Vol] 0.13 10*3/uL High [facility] Immature granulocytes/100 WBC (Bld) 0.9 % [facility] Interpretation and review of laboratory results Abnormal [facility] Lymphocytes (Bld) [#/Vol] 2.96 10*3/uL [facility] Lymphocytes/100 WBC (Bld) 20.5 % [facility] MCH (RBC) [Entitic mass] 31.1 pg 26.0 - 34.0 pg [facility] MCHC (RBC) [Mass/Vol] 33.7 g/dL 30.5 - 36.0 g/dL [facility] MCV (RBC) [Entitic vol] 92.3 fL 80.0 - 100.0 fL [facility] Monocytes (Bld) [#/Vol] 0.87 10*3/uL High [facility] Monocytes/100 WBC (Bld) 6.0 % [facility] Neutrophils (Bld) [#/Vol] 10.20 10*3/uL High [facility] Neutrophils/100 WBC (Bld) 70.8 % [facility] Nucleated RBC (Bld) [#/Vol] [facility] Nucleated RBC/100 WBC (Bld) [Ratio] 0.0 % /100 WBC [facility] Platelet mean volume (Bld) [Entitic vol] 10.1 fL 9.0 - 12.7 fL [facility] Platelets (Bld) [#/Vol] 303 10*3/uL [facility] RBC (Bld) [#/Vol] 4.31 10*6/uL 3.90 - 5.2 0 m/uL [facility] WBC (Bld) [#/Vol] 14.41 10*3/uL High [facility] Basophils (Bld) [#/Vol] 0.08 10*3/uL Normal <0.11 [facility] Comment on above: Order Comment: Speci men Type: BLOOD SPECIMENOrdering Facility: [facility] Address: [address] [place] [address] Performed By: #### 5 7021-8 ####[facility] LABCLIA [id number] [place] [address] Basophils/100 WBC (Bld) 0.6 % Normal [facility] Comment on above: Order Comment: Speci men Type: BLOOD SPECIMENOrdering Facility: [facility] Address: [address] [place] [address] Performed By: #### 5 7021-8 ####[facility] LABCLIA [id number] [place] [address] Differential cell count method Nom (Bld) Auto Normal [facility] Comment on above: Order Comment: Speci men Type: BLOOD SPECIMENOrdering Facility: [facility] Address: [address] [place] [address] Performed By: #### 5 7021-8 ####[facility] LABCLIA [id number] [place] [address] Eosinophils (Bld) [#/Vol] 0.17 10*3/uL Normal <0.46 [facility] Comment on above: Order Comment: Speci men Type: BLOOD SPECIMENOrdering Facility: [facility] Address: [address] [place] [address] Performed By: #### 5 7021-8 ####[facility] LABCLIA [id number] [place] [address] Eosinophils/100 WBC (Bld) 1.2 % Normal [facility] Comment on above: Order Comment: Speci men Type: BLOOD SPECIMENOrdering Facility: [facility] Address: [address] [place] [address] Performed By: #### 5 7021-8 ####[facility] LABCLIA [id number] [place] [address] Erythrocyte distribution width (RBC) [Ratio] 14.3 % Normal 11.5-15.0 [facility] Comment on above: Order Comment: Speci men Type: BLOOD SPECIMENOrdering Facility: [facility] Address: [address] [place] [address] Performed By: #### 5 7021-8 ####[facility] LABCLIA [id number] [place] [address] Hematocrit (Bld) [Volume fraction] 39.8 % Normal 36.0-46.0 [facility] Comment on above: Order Comment: Speci men Type: BLOOD SPECIMENOrdering Facility: [facility] Address: [address] [place] [address] Performed By: #### 5 7021-8 ####[facility] LABCLIA [id number] [place] [address] Hemoglobin (Bld) [Mass/Vol] 13.4 g/dL Normal 11.5-15.5 [facility] Comment on above: Order Comment: Speci men Type: BLOOD SPECIMENOrdering Facility: [facility] Address: [address] [place] [address] Performed By: #### 5 7021-8 ####[facility] LABCLIA [id number] [place] [address] Immature granulocytes (Bld) [#/Vol] 0.13 10*3/uL High <0.10 [facility] Comment on above: Order Comment: Speci men Type: BLOOD SPECIMENOrdering Facility: [facility] Address: [address] [place] [address] Performed By: #### 5 7021-8 ####[facility] LABCLIA [id number] [place] [address] Immature granulocytes/100 WBC (Bld) 0.9 % Normal [facility] Comment on above: Order Comment: Speci men Type: BLOOD SPECIMENOrdering Facility: [facility] Address: [address] [place] [address] Performed By: #### 5 7021-8 ####[facility] LABCLIA [id number] [place] [address] Lymphocytes (Bld) [#/Vol] 2.96 10*3/uL Normal 1.00-4.00 [facility] Comment on above: Order Comment: Speci men Type: BLOOD SPECIMENOrdering Facility: [facility] Address: [address] [place] [address] Performed By: #### 5 7021-8 ####[facility] LABCLIA [id number] [place] [address] Lymphocytes/100 WBC (Bld) 20.5 % Normal [facility] Comment on above: Order Comment: Speci men Type: BLOOD SPECIMENOrdering Facility: [facility] Address: [address] [place] [address] Performed By: #### 5 7021-8 ####[facility] LABCLIA [id number] [place] [address] MCH (RBC) [Entitic mass] 31.1 pg Normal 26.0-34.0 [facility] Comment on above: Order Comment: Speci men Type: BLOOD SPECIMENOrdering Facility: [facility] Address: [address] [place] [address] Performed By: #### 5 7021-8 ####[facility] LABCLIA [id number] [place] [address] MCHC (RBC) [Mass/Vol] 33.7 g/dL Normal 30.5-36.0 [facility] Comment on above: Order Comment: Speci men Type: BLOOD SPECIMENOrdering Facility: [facility] Address: [address] [place] [address] Performed By: #### 5 7021-8 ####[facility] LABCLIA [id number] [place] [address] MCV (RBC) [Entitic vol] 92.3 fL Normal 80.0-100.0 [facility] Comment on above: Order Comment: Speci men Type: BLOOD SPECIMENOrdering Facility: [facility] Address: [address] [place] [address] Performed By: #### 5 7021-8 ####[facility] LABCLIA [id number] [place] [address] Monocytes (Bld) [#/Vol] 0.87 10*3/uL High <0.87 [facility] Comment on above: Order Comment: Speci men Type: BLOOD SPECIMENOrdering Facility: [facility] Address: [address] [place] [address] Performed By: #### 5 7021-8 ####[facility] LABCLIA [id number] [place] [address] Monocytes/100 WBC (Bld) 6.0 % Normal [facility] Comment on above: Order Comment: Speci men Type: BLOOD SPECIMENOrdering Facility: [facility] Address: [address] [place] [address] Performed By: #### 5 7021-8 ####[facility] LABCLIA [id number] [place] [address] Neutrophils (Bld) [#/Vol] 10.20 10*3/uL High 1.45-7.50 [facility] Comment on above: Order Comment: Speci men Type: BLOOD SPECIMENOrdering Facility: [facility] Address: [address] [place] [address] Performed By: #### 5 7021-8 ####[facility] LABCLIA [id number] [place] [address] Neutrophils/100 WBC (Bld) 70.8 % Normal [facility] Comment on above: Order Comment: Speci men Type: BLOOD SPECIMENOrdering Facility: [facility] Address: [address] [place] [address] Performed By: #### 5 7021-8 ####[facility] LABCLIA [id number] [place] [address] Nucleated RBC (Bld) [#/Vol] 10*3/uL Normal <0.01 [facility] Comment on above: Order Comment: Speci men Type: BLOOD SPECIMENOrdering Facility: [facility] Address: [address] [place] [address] Performed By: #### 5 7021-8 ####[facility] LABCLIA [id number] [place] [address] Nucleated RBC/100 WBC (Bld) [Ratio] 0.0 /100 WBC Normal [facility] Comment on above: Order Comment: Speci men Type: BLOOD SPECIMENOrdering Facility: [facility] Address: [address] [place] [address] Performed By: #### 5 7021-8 ####[facility] LABCLIA [id number] [place] [address] Platelet mean volume (Bld) [Entitic vol] 10.1 fL Normal 9.0-12.7 [facility] Comment on above: Order Comment: Speci men Type: BLOOD SPECIMENOrdering Facility: [facility] Address: [address] [place] [address] Performed By: #### 5 7021-8 ####[facility] LABCLIA [id number] [place] [address] Platelets (Bld) [#/Vol] 303 10*3/uL Normal 150-400 [facility] Comment on above: Order Comment: Speci men Type: BLOOD SPECIMENOrdering Facility: [facility] Address: [address] [place] [address] Performed By: #### 5 7021-8 ####[facility] LABCLIA [id number] [place] [address] RBC (Bld) [#/Vol] 4.31 10*6/uL Normal 3.90-5.20 [facility] Comment on above: Order Comment: Speci men Type: BLOOD SPECIMENOrdering Facility: [facility] Address: [address] [place] [address] Performed By: #### 5 7021-8 ####[facility] LABCLIA [id number] [place] [address] WBC (Bld) [#/Vol] 14.41 10*3/uL High 3.70-11.00 [facility] Comment on above: Order Comment: Speci men Type: BLOOD SPECIMENOrdering Facility: [facility] Address: [address] [place] [address] Performed By: #### 5 7021-8 ####[facility] LABCLIA [id number] [place] [address] Comprehensive metabolic 2000 panelon 05-19-2024 Albumin [Mass/Vol] 4.0 g/dL 3.9 - 4.9 g/dL [facility] ALP [Catalytic activity/Vol] 79 U/L 34 - 123 U/L [facility] ALT [Catalytic activity/Vol] 25 U/L 7 - 38 U/L [facility] Anion gap [Moles/Vol] 14 mmol/L 8 - 15 mmol/L [facility] AST [Catalytic activity/Vol] 12 U/L Low 13 - 35 U/L [facility] Bilirubin [Mass/Vol] mg/dL Low 0.2 - 1 .3 mg/dL [facility] Calcium [Mass/Vol] 9.4 mg/dL 8.5 - 10. 2 mg/dL [facility] Chloride [Moles/Vol] 105 mmol/L 98 - 10 7 mmol/L [facility] CO2 [Moles/Vol] 21 mmol/L Low 22 - 30 mmol/L [facility] Creatinine [Mass/Vol] 0.49 mg/dL Low 0.58 - 0.96 mg/dL [facility] GFR/1.73 sq M.predicted among non-blacks MDRD (S/P/Bld) [Vol rate/Area] 120 mL/min/{1.73_m2} - PINF [facility] Comment on above: Estimated Glomerular Filtration Rate (eGFR) is calculated using the 2020 CKD-EPI creatinine equation. This equation utilizes serum creatinine, sex, and age as parameters. The creatinine assay has traceable calibration to isotope dilution-mass spectrometry. Refer to KDIGO guidelines for clinical interpretation. In patients with unstable renal function, e.g. those with acute kidney injury, the eGFR may not accurately reflect actual GFR. Glucose [Mass/Vol] 155 mg/dL High 74 - 99 mg/dL [facility] Comment on above: The [place] Diabete s Association (ADA) provides guidance for cutoff values [...] Standards of Medical Care in Diabetes 2016, [place] Diabetes Association. Diabetes Care. 2016.39(Suppl 1). Interpretation and review of laboratory results Abnormal [facility] Potassium [Moles/Vol] 3.8 mmol/L 3.7 - 5.1 mmol/L [facility] Protein [Mass/Vol] 6.6 g/dL 6.3 - 8.0 g/dL [facility] Sodium [Moles/Vol] 140 mmol/L 136 - 144 mmol/L [facility] Urea nitrogen [Mass/Vol] 12 mg/dL 7 - 21 mg/dL [facility] Albumin [Mass/Vol] 4.0 g/dL Normal 3.9-4.9 [facility] Comment on above: Order Comment: Speci men Type: BLOOD SPECIMENOrdering Facility: [facility] Address: [address] [place] [address] Performed By: #### 2 4323-8 ####[facility] LABCLIA [id number] [place] [address] [place] ALP [Catalytic activity/Vol] 79 U/L Normal 34-123 [facility] Comment on above: Order Comment: Speci men Type: BLOOD SPECIMENOrdering Facility: [facility] Address: [address] [place] [place] [id number] Performed By: #### 2 4323-8 ####[facility] LABCLIA [id number] [place] [id number] [place] ALT [Catalytic activity/Vol] 25 U/L Normal 7-38 [facility] Comment on above: Order Comment: Speci men Type: BLOOD SPECIMENOrdering Facility: [facility] Address: [address] [place] [address] Performed By: #### 2 4323-8 ####[facility] LABCLIA [id number] [place] [address] [place] Anion gap [Moles/Vol] 14 mmol/L Normal 8-15 [facility] Comment on above: Order Comment: Speci men Type: BLOOD SPECIMENOrdering Facility: [facility] Address: [address] [place] [address] Performed By: #### 2 4323-8 ####[facility] LABCLIA [id number] [place] [address] [place] AST [Catalytic activity/Vol] 12 U/L Low 13-35 [facility] Comment on above: Order Comment: Speci men Type: BLOOD SPECIMENOrdering Facility: [facility] Address: [address] [place] [id number] Performed By: #### 2 4323-8 ####[facility] LABCLIA [id number] [place] [id number] [place] Bilirubin [Mass/Vol] mg/dL Low 0.2-1.3 [facility] Comment on above: Order Comment: Speci men Type: BLOOD SPECIMENOrdering Facility: [facility] Address: [address] [place], [place] [address] Performed By: #### 2 4323-8 ####[facility] LABCLIA [id number] [place] [address] [place] Calcium [Mass/Vol] 9.4 mg/dL Normal 8.5-10.2 [facility] Comment on above: Order Comment: Speci men Type: BLOOD SPECIMENOrdering Facility: [facility] Address: [address] [place] [address] Performed By: #### 2 4323-8 ####[facility] LABCLIA [id number] [place] [address] [place] Chloride [Moles/Vol] 105 mmol/L Normal 98-107 [facility] Comment on above: Order Comment: Speci men Type: BLOOD SPECIMENOrdering Facility: [facility] Address: [address] [place] [address] Performed By: #### 2 4323-8 ####[facility] LABCLIA [id number] [place] [address] [place] CO2 [Moles/Vol] 21 mmol/L Low 22-30 [facility] Comment on above: Order Comment: Speci men Type: BLOOD SPECIMENOrdering Facility: [facility] Address: [address] [place] [address] Performed By: #### 2 4323-8 ####[facility] LABCLIA [id number] [place] [address] [place] Creatinine [Mass/Vol] 0.49 mg/dL Low 0.58-0.96 [facility] Comment on above: Order Comment: Speci men Type: BLOOD SPECIMENOrdering Facility: [facility] Address: [address] [place] [address] Performed By: #### 2 4323-8 ####[facility] LABCLIA [id number] [place] [address] [place] Creatinine and Glomerular filtration rate.predicted panel (S/P/Bld) 120 mL/min/1.73m??? Normal >=60 [facility] Comment on above: Order Comment: Speci men Type: BLOOD SPECIMENOrdering Facility: [facility] Address: [address] [place] [address] Result Comment: Erin mated Glomerular Filtration Rate [...] actual GFR. Performed By: #### 2 4323-8 ####[facility] LABIA [id number] [place] [address] [place] Glucose [Mass/Vol] 155 mg/dL High 74-99 [facility] Comment on above: Order Comment: Semaj cortés Type: BLOOD SPECIMENOrdering Facility: [facility] Address: [address] [place] [address] Result Comment: The [place] Diabetes Association (ADA) provides guidance for cutoff [...] Standards of Medical Care in Diabetes 2016, [place] Diabetes Association. Diabetes Care. 2016.39(Suppl 1). Performed By: #### 2 4323-8 ####[facility] LABIA [id number] [place] [address] [place] Potassium [Moles/Vol] 3.8 mmol/L Normal 3.7-5.1 [facility] Comment on above: Order Comment: Semaj cortés Type: BLOOD SPECIMENOrdering Facility: [facility] Address: [address] [place] [address] Performed By: #### 2 4323-8 ####[facility] LABCLIA [id number] [place] [address] [place] Protein [Mass/Vol] 6.6 g/dL Normal 6.3-8.0 [facility] Comment on above: Order Comment: Speci men Type: BLOOD SPECIMENOrdering Facility: [facility] Address: [address] [place] [address] Performed By: #### 2 4323-8 ####[facility] LABCLIA [id number] [place] [address] [place] Sodium [Moles/Vol] 140 mmol/L Normal 136-144 [facility] Comment on above: Order Comment: Speci men Type: BLOOD SPECIMENOrdering Facility: [facility] Address: [address] [place] [address] Performed By: #### 2 4323-8 ####[facility] LABCLIA [id number] [place] [address] [place] Urea nitrogen [Mass/Vol] 12 mg/dL Normal 7-21 [facility] Comment on above: Order Comment: Speci men Type: BLOOD SPECIMENOrdering Facility: [facility] Address: [address] [place] [address] Performed By: #### 2 4323-8 ####[facility] LABCLIA [id number] [place] [address] [place] ESR Westergren method (Bld) [Velocity]on 05-19-2024 ESR (Bld) [Velocity] 21 mm/h High [facility] Interpretation and review of laboratory results Abnormal [facility] ESR (Bld) [Velocity] 21 mm/h High 0-20 [facility] Comment on above: Order Comment: Speci men Type: BLOOD SPECIMENOrdering Facility: [facility] Address: [address] [place] [address] Performed By: #### 4 537-7 ####[facility] LABCLIA [id number] [place] [id number] [place] FERRITIN BLDon 05-19-2024 Ferritin [Mass/Vol] 20.6 ng/mL 14.7 - 2 05.1 ng/mL [facility] FOLATE SERUMon 05-19-2024 Folate [Mass/Vol] 11.1 ng/mL 4.7 - PINF ng/mL [facility] Ferritin SerPl-mCncon 2023 Ferritin [Mass/Vol] 20.6 ng/mL Normal 14.7-205.1 [facility] Comment on above: Order Comment: Speci men Type: BLOOD SPECIMENOrdering Facility: [facility] Address: [address] [place] [address] Performed By: #### 2 276-4, 2284-8, 77573-9, 2131-9 ####[facility] LABIA [id number] [place] [address] [place] [facility] Folate [Mass/Vol] 11.1 ng/mL Normal >4.7 [facility] Comment on above: Order Comment: Speci men Type: BLOOD SPECIMENOrdering Facility: [facility] Address: [address] [place] [address] Performed By: #### 2 276-4, 2284-8, 36566-6, 2131-9 ####[facility] LABIA [id number] [place] [address] [place] Iron and Iron binding capaci ty panelon 05-19-2024 Interpretation and review of laboratory results Abnormal [facility] Iron [Mass/Vol] 47 ug/dL 41 - 186 ug/dL [facility] Iron binding capacity [Mass/Vol] 420 ug/dL High 232 - 386 ug/dL [facility] Iron/TIBC [Molar ratio] 11.2 % Low 15.0 - 57.0 % [facility] Iron [Mass/Vol] 47 ug/dL Normal 41-186 [facility] Comment on above: Order Comment: Speci men Type: BLOOD SPECIMENOrdering Facility: [facility] Address: [address] [place] [address] Performed By: #### 2 276-4, 2284-8, 70321-9, 2132-01 ####[facility] LABCLIA [id number] [address] [address] [place] Iron binding capacity [Mass/Vol] 420 ug/dL High 232-386 [facility] Comment on above: Order Comment: Speci men Type: BLOOD SPECIMENOrdering Facility: [facility] Address: [address] [place], [place] [address] Performed By: #### 2 276-4, 2283-8, 64377-8, 2132-01 ####[facility] LABCLIA [id number] [address] [address] [place] Iron/TIBC [Molar ratio] 11.2 % Low 15.0-57.0 [facility] Comment on above: Order Comment: Speci men Type: BLOOD SPECIMENOrdering Facility: [facility] Address: [address] [place], [place] [address] Performed By: #### 2 276-4, 2283-8, 85571-8, 2132-01 ####[facility] LABCLIA [id number] [address] [address] [place] No Panel Informationon 05-19 Interpretation and review of laboratory results Normal [facility] VITAMIN B12 BLOODon 05-19-20 24 Cobalamin (Vitamin B12) [Mass/Vol] 632 pg/mL 232 - 1245 pg/mL [facility] Vit B12 SerPl-mCncon 024 Cobalamin (Vitamin B12) [Mass/Vol] 632 pg/mL Normal 232-1245 [facility] Comment on above: Order Comment: Speci men Type: BLOOD SPECIMENOrdering Facility: [facility] Address: [address] [place] [address] Performed By: #### 2 276-4, 2283-8, 40254-2, 2132-01 ####[facility] LABCLIA [id number] [place] [id number] [place] CNNURSEon 04-26-2024 CNNURSE Normal [facility] CNPNon 04-10-2024 CNPN Normal [facility] ALL CBC WITH AUTO DIFFon BASOPHILS ABSOLUTE AUTO 0.1 [facility] Basophils/100 WBC (Bld) 0.4 % 0.2 - 2.0 % [facility] Eosinophils/100 WBC (Bld) 0.4 % Low 0.9 - 7.0 % [facility] Erythrocyte distribution width (RBC) [Ratio] 15.1 % High 11.0 - 15.0 % [facility] Hematocrit (Bld) [Volume fraction] 39.7 % 36.0 - 48.0 % [facility] Hemoglobin (Bld) [Mass/Vol] 13 g/dL 12.0 - 16.0 g/dL [facility] IMMATURE GRANULOCYTES ABS AUTO 0.1 High [facility] Immature granulocytes/100 WBC (Bld) 0.9 % High 0.0 - 0.5 % [facility] Interpretation and review of laboratory results Abnormal [facility] LYMPHOCYTES ABSOLUTE AUTO 2.1 [facility] Lymphocytes/100 WBC (Bld) 18.4 % Low 20.5 - 60.0 % [facility] MCH (RBC) [Entitic mass] 30.9 pg 26.7 - 34.0 pg [facility] MCHC (RBC) [Mass/Vol] 32.7 g/dL 29.9 - 35.2 g/dL [facility] MCV (RBC) [Entitic vol] 94.3 fL 81.0 - 99.0 fL [facility] MONOCYTES ABSOLUTE AUTO 0.8 [facility] Monocytes/100 WBC (Bld) 6.7 % 1.7 - 12.0 % [facility] NEUTROPHILS ABSOLUTE AUTO 8.3 High [facility] Neutrophils/100 WBC (Bld) 73.2 % 43.0 - 75.0 % [facility] Platelet mean volume (Bld) [Entitic vol] 10.1 fL 9.5 - 13.5 fL [facility] TBH EO # 0.1 [facility] TBH PLT 326 [facility] TB RBC 4.21 [facility] TBH WBC 11.4 [facility] THYROID STIM HORMONEon 1 06-06-2023 Interpretation and review of laboratory results Abnormal [facility] TSH Qn 0.333 m[IU]/L Low [facility] ALL THYROXINE (T4) FREEon Free T4 [Mass/Vol] 1.01 ng/dL 0.76 - 1. 46 ng/dL [facility] CCF APTTon 04-06-2024 aPTT Coag (Bld) [Time] 25.6 s [facility] MLR HEMOGLOBIN A1Con 024 Glucose [Mass/Vol] 134 mg/dL [facility] HbA1c (Bld) [Mass fraction] 6.3 % High 4.5 - 6.2 % [facility] Comment on above: ADA RECOMMENDED LIMI T 4.0 - 6.0 ADA THERAPEUTIC TARGET < 7.0 ACTION SUGGESTED > 7.0 Interpretation and review of laboratory results Abnormal [facility] No Panel Informationon 04-06 [facility] SRMCOH PROTHROMBIN TIME INR W/O COUMon 04-06-2024 PT Coag (PPP) [Time] 9.6 s [facility] TB INR <0.93 [facility] Comment on above: DESIRED INR: 2.0-3.0 CONDITIONS NOT LISTED BELOW 2.5-3.5 FOR PROSTHETIC HEART VALVE REPLACEMENT 2.5-3.5 RECURRENT THROMBOSIS TBH PREG QUANT HCGon 024 HCG QUANTITATIVE <1 mIU/mL [facility] Comment on above: 5-50 0.2-1 WEEK 50-500 1-2 WEEKS 100-5,000 2-3 WEEKS 500-10,000 3-4 WEEKS 1,000-50,000 4-5 WEEKS 10,000-100,000 5-6 WEEKS 15,000-200,000 6-8 WEEKS 10,000-100,000 2-3 MONTHS CNPNon 04-02-2024 CNPN Normal [facility] 25(OH)D3 SerPl-mCncon 2023 25-hydroxyvitamin D3 [Mass/Vol] 19.9 ng/mL Low 31.0-80.0 [facility] Comment on above: Order Comment: Speci men Type: BLOOD SPECIMENOrdering Facility: [facility] Address: [address] [place] [address] Result Comment: Clas sification of 25 [place] Vitamin D status:Deficiency/Insufficiency: < or = 30 ng/ml.Sufficiency/Optimal Levels: 31-80 ng/mLToxicity: > 100 ng/mL.Test performed by chemiluminescent immunoassay. Performed By: #### 1 989-3 ####[facility] LABCLIA [id number] [place] [address] [place] [facility] BLOOD TB SCREENon 03-23-2024 M. tuberculosis tuberculin stim IFN-g Ql (Bld) Negative Normal [facility] Comment on above: Order Comment: Speci men Type: BLOOD SPECIMENOrdering Facility: [facility] Address: [address] [place] [address] Performed By: #### I NFTBP ####[facility] LABCLIA [id number] [place] [address] [place] MITOGEN MINUS NIL >10.00 Normal >=0.50 [facility] Comment on above: Order Comment: Speci men Type: BLOOD SPECIMENOrdering Facility: [facility] Address: [address] [place] [address] Performed By: #### I NFTBP ####[facility] LABCLIA [id number] [place] [address] [place] TB GAMMA INTERPRETATION Normal [facility] Comment on above: Order Comment: Speci men Type: BLOOD SPECIMENOrdering Facility: [facility] Address: [address] [place] [address] Performed By: #### I NFTBP ####[facility] LABCLIA [id number] [address] STATES OF [facility] TB NIL <0.00 Normal <=8.00 [facility] Comment on above: Order Comment: Speci men Type: BLOOD SPECIMENOrdering Facility: [facility] Address: [address] [place] [address] Performed By: #### I NFTBP ####[facility] LABCLIA [id number] [place] [address] [place] TB1 AG MINUS NIL 0.00 IU/mL Normal <0.35 [facility] Comment on above: Order Comment: Speci men Type: BLOOD SPECIMENOrdering Facility: [facility] Address: [address] [place] [address] Performed By: #### I NFTBP ####[facility] LABCLIA [id number] [place] [address] [place] TB2 AG MINUS NIL 0.00 IU/mL Normal <0.35 [facility] Comment on above: Order Comment: Speci men Type: BLOOD SPECIMENOrdering Facility: [facility] Address: [address] [place] [address] Performed By: #### I NFTBP ####[facility] LABCLIA [id number] [place] [address] [place] Bacteria Bld Culton 03-23-20 24 Bacteria identified Cx Nom (Bld) CULTURE, BLOOD: No growth 5 days Normal [facility] Comment on above: Performed By: #### 6 00-7 ####[facility] LABCLIA [id number] [place] [address] [place] CBC W Auto Differential pane l (Bld)on 03-23-2024 Basophils (Bld) [#/Vol] 0.06 10*3/uL Normal <0.11 [facility] Comment on above: Order Comment: Speci men Type: BLOOD SPECIMENOrdering Facility: [facility] Address: [address] [place] [address] Performed By: #### 5 7021-8 ####[facility] LABCLIA [id number] [place] [address] Basophils/100 WBC (Bld) 0.5 % Normal [facility] Comment on above: Order Comment: Speci men Type: BLOOD SPECIMENOrdering Facility: [facility] Address: [address] [place] [address] Performed By: #### 5 7021-8 ####[facility] LABCLIA [id number] [place] [address] Differential cell count method Nom (Bld) Auto Normal [facility] Comment on above: Order Comment: Speci men Type: BLOOD SPECIMENOrdering Facility: [facility] Address: [address] [place] [address] Performed By: #### 5 7021-8 ####[facility] LABCLIA [id number] [place] [address] Eosinophils (Bld) [#/Vol] 0.13 10*3/uL Normal <0.46 [facility] Comment on above: Order Comment: Speci men Type: BLOOD SPECIMENOrdering Facility: [facility] Address: [address] [place] [address] Performed By: #### 5 7021-8 ####[facility] LABCLIA [id number] [place] [address] Eosinophils/100 WBC (Bld) 1.0 % Normal [facility] Comment on above: Order Comment: Speci men Type: BLOOD SPECIMENOrdering Facility: [facility] Address: [address] [place] [address] Performed By: #### 5 7021-8 ####[facility] LABCLIA [id number] [place] [address] Erythrocyte distribution width (RBC) [Ratio] 15.2 % High 11.5-15.0 [facility] Comment on above: Order Comment: Speci men Type: BLOOD SPECIMENOrdering Facility: [facility] Address: [address] [place] [address] Performed By: #### 5 7021-8 ####[facility] LABCLIA [id number] [place] [address] Hematocrit (Bld) [Volume fraction] 39.3 % Normal 36.0-46.0 [facility] Comment on above: Order Comment: Speci men Type: BLOOD SPECIMENOrdering Facility: [facility] Address: [address] [place] [address] Performed By: #### 5 7021-8 ####[facility] LABCLIA [id number] [place] [address] Hemoglobin (Bld) [Mass/Vol] 13.1 g/dL Normal 11.5-15.5 [facility] Comment on above: Order Comment: Speci men Type: BLOOD SPECIMENOrdering Facility: [facility] Address: [address] [place] [address] Performed By: #### 5 7021-8 ####[facility] LABCLIA [id number] [place] [address] Immature granulocytes (Bld) [#/Vol] 0.12 10*3/uL High <0.10 [facility] Comment on above: Order Comment: Speci men Type: BLOOD SPECIMENOrdering Facility: [facility] Address: [address] [place] [address] Performed By: #### 5 7021-8 ####[facility] LABCLIA [id number] [place] [address] Immature granulocytes/100 WBC (Bld) 0.9 % Normal [facility] Comment on above: Order Comment: Speci men Type: BLOOD SPECIMENOrdering Facility: [facility] Address: [address] [place] [address] Performed By: #### 5 7021-8 ####[facility] LABCLIA [id number] [place] [address] Lymphocytes (Bld) [#/Vol] 2.03 10*3/uL Normal 1.00-4.00 [facility] Comment on above: Order Comment: Speci men Type: BLOOD SPECIMENOrdering Facility: [facility] Address: [address] [place] [address] Performed By: #### 5 7021-8 ####[facility] LABCLIA [id number] [place] [address] Lymphocytes/100 WBC (Bld) 15.7 % Normal [facility] Comment on above: Order Comment: Speci men Type: BLOOD SPECIMENOrdering Facility: [facility] Address: [address] [place] [address] Performed By: #### 5 7021-8 ####[facility] LABCLIA [id number] [place] [address] MCH (RBC) [Entitic mass] 31.3 pg Normal 26.0-34.0 [facility] Comment on above: Order Comment: Speci men Type: BLOOD SPECIMENOrdering Facility: [facility] Address: [address] [place] [address] Performed By: #### 5 7021-8 ####[facility] LABCLIA [id number] [place] [address] MCHC (RBC) [Mass/Vol] 33.3 g/dL Normal 30.5-36.0 [facility] Comment on above: Order Comment: Speci men Type: BLOOD SPECIMENOrdering Facility: [facility] Address: [address] [place] [address] Performed By: #### 5 7021-8 ####[facility] LABCLIA [id number] [place] [address] MCV (RBC) [Entitic vol] 93.8 fL Normal 80.0-100.0 [facility] Comment on above: Order Comment: Speci men Type: BLOOD SPECIMENOrdering Facility: [facility] Address: [address] [place] [address] Performed By: #### 5 7021-8 ####[facility] LABCLIA [id number] [place] [address] Monocytes (Bld) [#/Vol] 0.65 10*3/uL Normal <0.87 [facility] Comment on above: Order Comment: Speci men Type: BLOOD SPECIMENOrdering Facility: [facility] Address: [address] [place] [address] Performed By: #### 5 7021-8 ####[facility] LABCLIA [id number] [place] [address] Monocytes/100 WBC (Bld) 5.0 % Normal [facility] Comment on above: Order Comment: Speci men Type: BLOOD SPECIMENOrdering Facility: [facility] Address: [address] [place] [address] Performed By: #### 5 7021-8 ####[facility] LABCLIA [id number] [place] [address] Neutrophils (Bld) [#/Vol] 9.90 10*3/uL High 1.45-7.50 [facility] Comment on above: Order Comment: Speci men Type: BLOOD SPECIMENOrdering Facility: [facility] Address: [address] [place] [address] Performed By: #### 5 7021-8 ####[facility] LABCLIA [id number] [place] [address] Neutrophils/100 WBC (Bld) 76.9 % Normal [facility] Comment on above: Order Comment: Speci men Type: BLOOD SPECIMENOrdering Facility: [facility] Address: [address] [place] [address] Performed By: #### 5 7021-8 ####[facility] LABCLIA [id number] [place] [address] Nucleated RBC (Bld) [#/Vol] 10*3/uL Normal <0.01 [facility] Comment on above: Order Comment: Speci men Type: BLOOD SPECIMENOrdering Facility: [facility] Address: [address] [place] [address] Performed By: #### 5 7021-8 ####[facility] LABCLIA [id number] [place] [address] Nucleated RBC/100 WBC (Bld) [Ratio] 0.0 /100 WBC Normal [facility] Comment on above: Order Comment: Speci men Type: BLOOD SPECIMENOrdering Facility: [facility] Address: [address] [place] [address] Performed By: #### 5 7021-8 ####[facility] LABCLIA [id number] [place] [address] Platelet mean volume (Bld) [Entitic vol] 10.0 fL Normal 9.0-12.7 [facility] Comment on above: Order Comment: Speci men Type: BLOOD SPECIMENOrdering Facility: [facility] Address: [address] [place] [address] Performed By: #### 5 7021-8 ####[facility] LABCLIA [id number] [place] [address] Platelets (Bld) [#/Vol] 262 10*3/uL Normal 150-400 [facility] Comment on above: Order Comment: Speci men Type: BLOOD SPECIMENOrdering Facility: [facility] Address: [address] [place] [address] Performed By: #### 5 7021-8 ####[facility] LABCLIA [id number] [place] [address] RBC (Bld) [#/Vol] 4.19 10*6/uL Normal 3.90-5.20 [facility] Comment on above: Order Comment: Speci men Type: BLOOD SPECIMENOrdering Facility: [facility] Address: [address] [place] [address] Performed By: #### 5 7021-8 ####[facility] LABCLIA [id number] [place] [address] WBC (Bld) [#/Vol] 12.89 10*3/uL High 3.70-11.00 [facility] Comment on above: Order Comment: Speci men Type: BLOOD SPECIMENOrdering Facility: [facility] Address: [address] [place] [address] Performed By: #### 5 7021-8 ####[facility] LABCLIA [id number] [place] [address] CNNURSEon 03-23-2024 CNNURSE Normal [facility] CRP SerPl-mCncon 03-23-2024 CRP [Mass/Vol] 0.3 mg/dL Normal <0.9 [facility] Comment on above: Order Comment: Speci men Type: BLOOD SPECIMENOrdering Facility: [facility] Address: [address] [place] [address] Performed By: #### 1 988-5, 94468-1, 2276-4 ####[facility] LABCLIA [id number] [place] [address] [place] Comprehensive metabolic 2000 panelon 03-23-2024 Albumin [Mass/Vol] 3.9 g/dL Normal 3.9-4.9 [facility] Comment on above: Order Comment: Speci men Type: BLOOD SPECIMENOrdering Facility: [facility] Address: [address] [place] [address] Performed By: #### 2 4323-8 ####[facility] LABCLIA [id number] [place] [address] [place] ALP [Catalytic activity/Vol] 70 U/L Normal 34-123 [facility] Comment on above: Order Comment: Speci men Type: BLOOD SPECIMENOrdering Facility: [facility] Address: [address] [place] [address] Performed By: #### 2 4323-8 ####[facility] LABCLIA [id number] [place] [address] [place] ALT [Catalytic activity/Vol] 27 U/L Normal 7-38 [facility] Comment on above: Order Comment: Speci men Type: BLOOD SPECIMENOrdering Facility: [facility] Address: [address] [place] [address] Performed By: #### 2 4323-8 ####[facility] LABCLIA [id number] [place] [address] [place] Anion gap [Moles/Vol] 15 mmol/L Normal 8-15 [facility] Comment on above: Order Comment: Speci men Type: BLOOD SPECIMENOrdering Facility: [facility] Address: [address] [place] [address] Performed By: #### 2 4323-8 ####[facility] LABCLIA [id number] [place] [address] [place] AST [Catalytic activity/Vol] 20 U/L Normal 13-35 [facility] Comment on above: Order Comment: Speci men Type: BLOOD SPECIMENOrdering Facility: [facility] Address: [address] [place] [address] Performed By: #### 2 4323-8 ####[facility] LABCLIA [id number] [place] [address] [place] Bilirubin [Mass/Vol] mg/dL Low 0.2-1.3 [facility] Comment on above: Order Comment: Speci men Type: BLOOD SPECIMENOrdering Facility: [facility] Address: [address] [place] [address] Performed By: #### 2 4323-8 ####[facility] LABCLIA [id number] [place] [address] [place] Calcium [Mass/Vol] 9.2 mg/dL Normal 8.5-10.2 [facility] Comment on above: Order Comment: Speci men Type: BLOOD SPECIMENOrdering Facility: [facility] Address: [address] [place] [address] Performed By: #### 2 4323-8 ####[facility] LABCLIA [id number] [place] [address] [place] Chloride [Moles/Vol] 104 mmol/L Normal 98-107 [facility] Comment on above: Order Comment: Speci men Type: BLOOD SPECIMENOrdering Facility: [facility] Address: [address] [place] [address] Performed By: #### 2 4323-8 ####[facility] LABCLIA [id number] [place] [address] [place] CO2 [Moles/Vol] 20 mmol/L Low 22-30 [facility] Comment on above: Order Comment: Speci men Type: BLOOD SPECIMENOrdering Facility: [facility] Address: [address] [place] [address] Performed By: #### 2 4323-8 ####[facility] LABIA [id number] [place] [address] [place] Creatinine [Mass/Vol] 0.61 mg/dL Normal 0.58-0.96 [facility] Comment on above: Order Comment: Speci men Type: BLOOD SPECIMENOrdering Facility: [facility] Address: [address] [place] [address] Performed By: #### 2 4323-8 ####[facility] LABIA [id number] [place] [address] [place] Creatinine and Glomerular filtration rate.predicted panel (S/P/Bld) 114 mL/min/1.73m??? Normal >=60 [facility] Comment on above: Order Comment: Speci men Type: BLOOD SPECIMENOrdering Facility: [facility] Address: [address] [place] [address] Result Comment: Erin mated Glomerular Filtration Rate [...] actual GFR. Performed By: #### 2 4323-8 ####[facility] LABCLIA [id number] [place] [address] [place] Glucose [Mass/Vol] 152 mg/dL High 74-99 [facility] Comment on above: Order Comment: Speci men Type: BLOOD SPECIMENOrdering Facility: [facility] Address: [address] [place] [address] Result Comment: The [place] Diabetes Association (ADA) provides guidance for cutoff [...] Standards of Medical Care in Diabetes 2016, [place] Diabetes Association. Diabetes Care. 2016.39(Suppl 1). Performed By: #### 2 4323-8 ####[facility] LABCLIA [id number] [place] [address] [place] Potassium [Moles/Vol] 4.3 mmol/L Normal 3.7-5.1 [facility] Comment on above: Order Comment: Speci men Type: BLOOD SPECIMENOrdering Facility: [facility] Address: [address] [place] [address] Performed By: #### 2 4323-8 ####[facility] LABCLIA [id number] [place] [id number] [place] Protein [Mass/Vol] 6.6 g/dL Normal 6.3-8.0 [facility] Comment on above: Order Comment: Speci men Type: BLOOD SPECIMENOrdering Facility: [facility] Address: [address] [place] [address] Performed By: #### 2 4323-8 ####[facility] LABCLIA [id number] [place] [address] [place] Sodium [Moles/Vol] 139 mmol/L Normal 136-144 [facility] Comment on above: Order Comment: Speci men Type: BLOOD SPECIMENOrdering Facility: [facility] Address: [address] [place] [address] Performed By: #### 2 4323-8 ####[facility] LABIA [id number] [place] [address] [place] Urea nitrogen [Mass/Vol] 20 mg/dL Normal 7-21 [facility] Comment on above: Order Comment: Speci men Type: BLOOD SPECIMENOrdering Facility: [facility] Address: [address] [place] [address] Performed By: #### 2 4323-8 ####[facility] [id number] [place] [address] [place] ESR Westergren method (Bld) [Velocity]on 03-23-2024 ESR (Bld) [Velocity] 27 mm/h High 0-20 [facility] Comment on above: Order Comment: Speci men Type: BLOOD SPECIMENOrdering Facility: [facility] Address: [address] [place] [address] Performed By: #### 4 537-7 ####[facility] [id number] [place] [address] [place] Ferritin SerPl-mCncon 2023 Ferritin [Mass/Vol] 33.3 ng/mL Normal 14.7-205.1 [facility] Comment on above: Order Comment: Speci men Type: BLOOD SPECIMENOrdering Facility: [facility] Address: [address] [place] [address] Performed By: #### 1 988-5, 93766-5, 2276-4 ####[facility] LABIA [id number] [place] [address] [place] Folate SerPl-ncon 03-23-20 Folate [Mass/Vol] 13.0 ng/mL Normal >4.7 [facility] Comment on above: Order Comment: Speci men Type: BLOOD SPECIMENOrdering Facility: [facility] Address: [address] [place] [address] Performed By: #### 2 132-9, 2284-8 ####[facility] LABCLIA [id number] [place] [address] [place] HCG ( test) Ql (U)o n 03-23-2024 Interpretation and review of laboratory results Normal [facility] Preg Test, Ur Negative Negative [facility] Healthcare [facility] IMMUNOGLOBULINS,IGG,IGA,IGMo n 03-23-2024 IgA [Mass/Vol] 171 mg/dL Normal 70-400 [facility] Comment on above: Order Comment: Speci men Type: BLOOD SPECIMENOrdering Facility: [facility] Address: [address] [place] [address] Performed By: #### S ERIMM ####[facility] LABCLIA [id number] [place] [address] [place] IgG [Mass/Vol] 476 mg/dL Low 700-1600 [facility] Comment on above: Order Comment: Speci men Type: BLOOD SPECIMENOrdering Facility: [facility] Address: [address] [place] [address] Performed By: #### S ERIMM ####[facility] LABCLIA [id number] [place] [address] [place] IgM [Mass/Vol] 373 mg/dL High 40-230 [facility] Comment on above: Order Comment: Speci men Type: BLOOD SPECIMENOrdering Facility: [facility] Address: [address] [place] [address] Performed By: #### S ERIMM ####[facility] LABCLIA [id number] [id number] [address] [place] Iron and Iron binding capaci ty panelon 03-23-2024 Iron [Mass/Vol] 67 ug/dL Normal 41-186 [facility] Comment on above: Order Comment: Speci men Type: BLOOD SPECIMENOrdering Facility: [facility] Address: [address] [place] [address] Performed By: #### 1 988-5, 96007-3, 2276-4 ####[facility] LABCLIA [id number] [address] [place] Iron binding capacity [Mass/Vol] 399 ug/dL High 232-386 [facility] Comment on above: Order Comment: Speci men Type: BLOOD SPECIMENOrdering Facility: [facility] Address: [address] [place] [address] Performed By: #### 1 988-5, 39589-3, 2276-4 ####[facility] LABCLIA [id number] [address] [place] Iron/TIBC [Molar ratio] 16.8 % Normal 15.0-57.0 [facility] Comment on above: Order Comment: Speci men Type: BLOOD SPECIMENOrdering Facility: [facility] Address: [address] [place] [address] Performed By: #### 1 988-5, 79967-2, 2276-4 ####[facility] LABCLIA [id number] [place] [address] [place] Urinalysis macro (dipstick) panel (U)on 03-23-2024 Bilirubin, UA Negative Negative - 4(70) +++ mg/dL [facility] Blood, UA Positive Negative - 50 Dusty/mcL [facility] Comment on above: large Clarity, UA Cloudy [facility] Healthcare Color, UA Dark Georgie [facility] Glucose, UA Positive Negative - 2000(110) ++++ mg/dL [facility] Comment on above: 100 mg Interpretation and review of laboratory results Abnormal [facility] Ketones, UA Negative Negative - 160(16) ++++ mg/dL [facility] Leukocytes, UA Positive Negative - 500+++ Andi/mcL [facility] Comment on above: small Nitrite, UA Negative Negative - Positive [facility] pH, UA 5.5 5 - 9 [facility] Protein, UA Positive Negative - 2000(20) ++++ mg/dL [facility] Comment on above: 30 mg Spec Grav, UA 1.03 1 - 1.03 [facility] Urobilinogen, UA 0.2 0.2 - 12 mg/dL [facility] Vit B12 [facility] 024 Cobalamin (Vitamin B12) [Mass/Vol] 607 pg/mL Normal 232-1245 [facility] Comment on above: Order Comment: Speci men Type: BLOOD SPECIMENOrdering Facility: [facility] Address: [address] [place] [address] Performed By: #### 2 132-9, 2284-8 ####[facility] LABCLIA [id number] [facility] [id number] OF [facility] Office Visiton 03-08-2024 Follow-up visit [id number] Ariadna Haley 1980 F Date Provider Department Center 03/08/2024 Renny-CALOS MENDOZA TARA Beasley Family History Problem Relation Age of Onset Heart failure Maternal Grandmother Heart attack Maternal Grandfather Family Status - Relation Status Age at Maternal Grandmother Maternal Grandfather Level of Service:16941 OR OFFICE/OUTPATIENT NEW MODERATE MDM 45 MINUTES Normal [facility] CNPNon 02-22-2024 CNPN Normal [facility] CBC W Auto Differential pane l (Bld)on 02-21-2024 Basophils (Bld) [#/Vol] 0.03 10*3/uL Normal <0.11 [facility] Comment on above: Order Comment: Speci men Type: BLOOD SPECIMENOrdering Facility: [facility] Address: [address] [place] [address] Performed By: #### 5 7021-8 ####[facility] LABCLIA [id number] [place] [address] Basophils/100 WBC (Bld) 0.2 % Normal [facility] Comment on above: Order Comment: Speci men Type: BLOOD SPECIMENOrdering Facility: [facility] Address: [address] [place] [address] Performed By: #### 5 7021-8 ####[facility] LABCLIA [id number] [place] [address] Differential cell count method Nom (Bld) Auto Normal [facility] Comment on above: Order Comment: Speci men Type: BLOOD SPECIMENOrdering Facility: [facility] Address: [address] [place] [address] Performed By: #### 5 7021-8 ####[facility] LABCLIA [id number] [place] [address] Eosinophils (Bld) [#/Vol] 0.03 10*3/uL Normal <0.46 [facility] Comment on above: Order Comment: Speci men Type: BLOOD SPECIMENOrdering Facility: [facility] Address: [address] [place] [address] Performed By: #### 5 7021-8 ####[facility] LABCLIA [id number] [place] [address] Eosinophils/100 WBC (Bld) 0.2 % Normal [facility] Comment on above: Order Comment: Speci men Type: BLOOD SPECIMENOrdering Facility: [facility] Address: [address] [place] [address] Performed By: #### 5 7021-8 ####[facility] LABCLIA [id number] [place] [address] Erythrocyte distribution width (RBC) [Ratio] 15.1 % High 11.5-15.0 [facility] Comment on above: Order Comment: Speci men Type: BLOOD SPECIMENOrdering Facility: [facility] Address: [address] [place] [address] Performed By: #### 5 7021-8 ####[facility] LABCLIA [id number] [place] [address] Hematocrit (Bld) [Volume fraction] 41.2 % Normal 36.0-46.0 [facility] Comment on above: Order Comment: Speci men Type: BLOOD SPECIMENOrdering Facility: [facility] Address: [address] [place] [address] Performed By: #### 5 7021-8 ####[facility] LABCLIA [id number] [place] [address] Hemoglobin (Bld) [Mass/Vol] 13.8 g/dL Normal 11.5-15.5 [facility] Comment on above: Order Comment: Speci men Type: BLOOD SPECIMENOrdering Facility: [facility] Address: [address] [place] [address] Performed By: #### 5 7021-8 ####[facility] LABIA [id number] [place] [address] Immature granulocytes (Bld) [#/Vol] 0.15 10*3/uL High <0.10 [facility] Comment on above: Order Comment: Speci men Type: BLOOD SPECIMENOrdering Facility: [facility] Address: [address] [place] [address] Performed By: #### 5 7021-8 ####[facility] LABCLIA [id number] [place] [address] Immature granulocytes/100 WBC (Bld) 0.9 % Normal [facility] Comment on above: Order Comment: Speci men Type: BLOOD SPECIMENOrdering Facility: [facility] Address: [address] [place] [address] Performed By: #### 5 7021-8 ####[facility] LABIA [id number] [place] [address] Lymphocytes (Bld) [#/Vol] 1.62 10*3/uL Normal 1.00-4.00 [facility] Comment on above: Order Comment: Speci men Type: BLOOD SPECIMENOrdering Facility: [facility] Address: [address] [place] [address] Performed By: #### 5 7021-8 ####[facility] LABCLIA [id number] [place] [address] Lymphocytes/100 WBC (Bld) 9.8 % Normal [facility] Comment on above: Order Comment: Speci men Type: BLOOD SPECIMENOrdering Facility: [facility] Address: [address] [place] [address] Performed By: #### 5 7021-8 ####[facility] LABCLIA [id number] [place] [address] MCH (RBC) [Entitic mass] 30.5 pg Normal 26.0-34.0 [facility] Comment on above: Order Comment: Speci men Type: BLOOD SPECIMENOrdering Facility: [facility] Address: [address] [place] [address] Performed By: #### 5 7021-8 ####[facility] LABCLIA [id number] [place] [address] MCHC (RBC) [Mass/Vol] 33.5 g/dL Normal 30.5-36.0 [facility] Comment on above: Order Comment: Speci men Type: BLOOD SPECIMENOrdering Facility: [facility] Address: [address] [place] [address] Performed By: #### 5 7021-8 ####[facility] LABIA [id number] [place] [address] MCV (RBC) [Entitic vol] 91.2 fL Normal 80.0-100.0 [facility] Comment on above: Order Comment: Speci men Type: BLOOD SPECIMENOrdering Facility: [facility] Address: [address] [place] [address] Performed By: #### 5 7021-8 ####[facility] LABCLIA [id number] [place] [address] Monocytes (Bld) [#/Vol] 0.76 10*3/uL Normal <0.87 [facility] Comment on above: Order Comment: Speci men Type: BLOOD SPECIMENOrdering Facility: [facility] Address: [address] [place] [address] Performed By: #### 5 7021-8 ####[facility] LABCLIA [id number] [place] [address] Monocytes/100 WBC (Bld) 4.6 % Normal [facility] Comment on above: Order Comment: Speci men Type: BLOOD SPECIMENOrdering Facility: [facility] Address: [address] [place] [address] Performed By: #### 5 7021-8 ####[facility] LABCLIA [id number] [place] [address] Neutrophils (Bld) [#/Vol] 13.99 10*3/uL High 1.45-7.50 [facility] Comment on above: Order Comment: Speci men Type: BLOOD SPECIMENOrdering Facility: [facility] Address: [address] [place] [address] Performed By: #### 5 7021-8 ####[facility] LABCLIA [id number] [place] [address] Neutrophils/100 WBC (Bld) 84.3 % Normal [facility] Comment on above: Order Comment: Speci men Type: BLOOD SPECIMENOrdering Facility: [facility] Address: [address] [place] [address] Performed By: #### 5 7021-8 ####[facility] LABCLIA [id number] [place] [address] Nucleated RBC (Bld) [#/Vol] 10*3/uL Normal <0.01 [facility] Comment on above: Order Comment: Speci men Type: BLOOD SPECIMENOrdering Facility: [facility] Address: [address] [place] [address] Performed By: #### 5 7021-8 ####[facility] LABCLIA [id number] [place] [address] Nucleated RBC/100 WBC (Bld) [Ratio] 0.0 /100 WBC Normal [facility] Comment on above: Order Comment: Speci men Type: BLOOD SPECIMENOrdering Facility: [facility] Address: [address] [place] [address] Performed By: #### 5 7021-8 ####[facility] LABCLIA [id number] [place] [address] Platelet mean volume (Bld) [Entitic vol] 9.9 fL Normal 9.0-12.7 [facility] Comment on above: Order Comment: Speci men Type: BLOOD SPECIMENOrdering Facility: [facility] Address: [address] [place] [address] Performed By: #### 5 7021-8 ####[facility] LABCLIA [id number] [place] [address] Platelets (Bld) [#/Vol] 332 10*3/uL Normal 150-400 [facility] Comment on above: Order Comment: Speci men Type: BLOOD SPECIMENOrdering Facility: [facility] Address: [address] [place] [address] Performed By: #### 5 7021-8 ####[facility] LABCLIA [id number] [place] [address] RBC (Bld) [#/Vol] 4.52 10*6/uL Normal 3.90-5.20 [facility] Comment on above: Order Comment: Speci men Type: BLOOD SPECIMENOrdering Facility: [facility] Address: [address] [place] [address] Performed By: #### 5 7021-8 ####[facility] LABCLIA [id number] [place] [address] WBC (Bld) [#/Vol] 16.58 10*3/uL High 3.70-11.00 [facility] Comment on above: Order Comment: Speci men Type: BLOOD SPECIMENOrdering Facility: [facility] Address: [address] [place] [address] Performed By: #### 5 7021-8 ####[facility] LABCLIA [id number] [place] [address] CNNURSEon 02-21-2024 CNNURSE Normal [facility] metabolic 2000 panelon 02-21-2024 Albumin [Mass/Vol] 4.3 g/dL Normal 3.9-4.9 [facility] Comment on above: Order Comment: Speci men Type: BLOOD SPECIMENOrdering Facility: [facility] Address: [address] [place] [address] Performed By: #### 2 4323-8 ####[facility] LABCLIA [id number] [place] [address] ALP [Catalytic activity/Vol] 72 U/L Normal 34-123 [facility] Comment on above: Order Comment: Speci men Type: BLOOD SPECIMENOrdering Facility: [facility] Address: [address] [place] [address] Performed By: #### 2 4323-8 ####[facility] LABCLIA [id number] [place] [address] ALT [Catalytic activity/Vol] 22 U/L Normal 7-38 [facility] Comment on above: Order Comment: Speci men Type: BLOOD SPECIMENOrdering Facility: [facility] Address: [address] [place] [address] Performed By: #### 2 4323-8 ####[facility] LABCLIA [id number] [place] [address] Anion gap [Moles/Vol] 13 mmol/L Normal 8-15 [facility] Comment on above: Order Comment: Speci men Type: BLOOD SPECIMENOrdering Facility: [facility] Address: [address] [place] [address] Performed By: #### 2 4323-8 ####[facility] LABCLIA [id number] [place] [address] AST [Catalytic activity/Vol] 9 U/L Low 13-35 [facility] Comment on above: Order Comment: Speci men Type: BLOOD SPECIMENOrdering Facility: [facility] Address: [address] [place] [address] Performed By: #### 2 4323-8 ####[facility] LABCLIA [id number] [place] [address] Bilirubin [Mass/Vol] 0.2 mg/dL Normal 0.2-1.3 [facility] Comment on above: Order Comment: Speci men Type: BLOOD SPECIMENOrdering Facility: [facility] Address: [address] [place] [address] Performed By: #### 2 4323-8 ####[facility] LABCLIA [id number] [place] [address] Calcium [Mass/Vol] 9.5 mg/dL Normal 8.5-10.2 [facility] Comment on above: Order Comment: Speci men Type: BLOOD SPECIMENOrdering Facility: [facility] Address: [address] [place] [address] Performed By: #### 2 4323-8 ####[facility] LABCLIA [id number] [place] [address] Chloride [Moles/Vol] 107 mmol/L Normal 98-107 [facility] Comment on above: Order Comment: Speci men Type: BLOOD SPECIMENOrdering Facility: [facility] Address: [address] [place] [address] Performed By: #### 2 4323-8 ####[facility] LABCLIA [id number] [place] [address] CO2 [Moles/Vol] 20 mmol/L Low 22-30 [facility] Comment on above: Order Comment: Speci men Type: BLOOD SPECIMENOrdering Facility: [facility] Address: [address] [place] [address] Performed By: #### 2 4323-8 ####[facility] LABCLIA [id number] [place] [address] Creatinine [Mass/Vol] 0.65 mg/dL Normal 0.58-0.96 [facility] Comment on above: Order Comment: Speci men Type: BLOOD SPECIMENOrdering Facility: [facility] Address: [address] [place] [address] Performed By: #### 2 4323-8 ####[facility] LABCLIA [id number] [place] [address] Creatinine and Glomerular filtration rate.predicted panel (S/P/Bld) 112 mL/min/1.73m??? Normal >=60 [facility] Comment on above: Order Comment: Speci men Type: BLOOD SPECIMENOrdering Facility: [facility] Address: [address] [place] [address] Result Comment: Erin mated Glomerular Filtration Rate [...] actual GFR. Performed By: #### 2 4323-8 ####[facility] LABCLIA [id number] [place] [address] Glucose [Mass/Vol] 215 mg/dL High 74-99 [facility] Comment on above: Order Comment: Leolai moo Type: BLOOD SPECIMENOrdering Facility: [facility] Address: [address] [place], [place] [address] Result Comment: The [place] [employer] (ADA) provides guidance for cutoff [...] Standards of Medical Care in Diabetes 2016, [place] [employer]. Diabetes Care. 2016.39(Suppl 1). Performed By: #### 2 4323-8 ####[facility] LABCLIA [id number] [place] [address] Potassium [Moles/Vol] 4.2 mmol/L Normal 3.7-5.1 [facility] Comment on above: Order Comment: Speci men Type: BLOOD SPECIMENOrdering Facility: [facility] Address: [address] [place] [address] Performed By: #### 2 4323-8 ####[facility] LABCLIA [id number] [place] [address] Protein [Mass/Vol] 7.2 g/dL Normal 6.3-8.0 [facility] Comment on above: Order Comment: Speci men Type: BLOOD SPECIMENOrdering Facility: [facility] Address: [address] [place] [address] Performed By: #### 2 4323-8 ####[facility] LABCLIA [id number] [place] [address] Sodium [Moles/Vol] 140 mmol/L Normal 136-144 [facility] Comment on above: Order Comment: Speci men Type: BLOOD SPECIMENOrdering Facility: [facility] Address: [address] [place] [address] Performed By: #### 2 4323-8 ####[facility] LABCLIA [id number] [place] [address] Urea nitrogen [Mass/Vol] 15 mg/dL Normal 7-21 [facility] Comment on above: Order Comment: Speci men Type: BLOOD SPECIMENOrdering Facility: [facility] Address: [address] [place] [address] Performed By: #### 2 4323-8 ####[facility] LABCLIA [id number] [place] [address] ESR Westergren method (Bld) [Velocity]on 02-21-2024 ESR (Bld) [Velocity] 33 mm/h High 0-20 [facility] Comment on above: Order Comment: Speci men Type: BLOOD SPECIMENOrdering Facility: [facility] Address: [address] [place] [address] Performed By: #### 4 537-7 ####[facility] LABCLIA [id number] [place] [address] [place] Ferritin [facility]Pl[facility] Ferritin [Mass/Vol] 36.3 ng/mL Normal 14.7-205.1 [facility] Comment on above: Order Comment: Speci men Type: BLOOD SPECIMENOrdering Facility: [facility] Address: [address] [place] [address] Performed By: #### 5 0190-8, 2276-4, 2132-01, 2283-12 ####[facility] LABCLIA [id number] [place] [address] [place] Folate SerPl-mCncon 02-21-20 Folate [Mass/Vol] 18.8 ng/mL Normal >4.7 [facility] Comment on above: Order Comment: Speci men Type: BLOOD SPECIMENOrdering Facility: [facility] Address: [address] [place] [address] Performed By: #### 5 0190-8, 2276-4, 2132-01, 2283-12 ####[facility] LABCLIA [id number] [place] [address] [place] Iron and Iron binding capaci ty panelon 02-21-2024 Iron [Mass/Vol] 74 ug/dL Normal 41-186 [facility] Comment on above: Order Comment: Speci men Type: BLOOD SPECIMENOrdering Facility: [facility] Address: [address] [place] [address] Performed By: #### 5 0190-8, 2275-4, 2132-01, 2283-12 ####[facility] LABCLIA [id number] [place] [address] [place] Iron binding capacity [Mass/Vol] 422 ug/dL High 232-386 [facility] Comment on above: Order Comment: Speci men Type: BLOOD SPECIMENOrdering Facility: [facility] Address: [address] [place] [address] Performed By: #### 5 0190-8, 4, 2132-01, 2283-12 ####[facility] LABCLIA [id number] [place] [address] [place] Iron/TIBC [Molar ratio] 17.5 % Normal 15.0-57.0 [facility] Comment on above: Order Comment: Speci men Type: BLOOD SPECIMENOrdering Facility: [facility] Address: [address] [place] [address] Performed By: #### 5 0190-8, 2275-08, 2132-01, 2283-12 ####[facility] LABCLIA [id number] [place] [id number] [place] Vit B12 [facility] 024 Cobalamin (Vitamin B12) [Mass/Vol] 560 pg/mL Normal 232-1245 [facility] Comment on above: Order Comment: Speci men Type: BLOOD SPECIMENOrdering Facility: [facility] Address: [address] [place] [address] Performed By: #### 5 0190-8, 4, 2132-01, 2283-12 ####[facility] LABCLIA [id number] [place] [id number] [place] CNPNon 02-18-2024 CNPN Normal [facility] HCG ( test) IA.rapi d Ql (U)Ordered By: Adolfo Kang on 02-16-2024 HCG ( test) Ql (U) Negative [facility] HCG,Urineon 02-16-2024 Beta HCG ( test) Ql (U) Negative Normal [facility] Comment on above: Result Comment: PERF ORMED BY: [facility] [address] [place] [address] PATHOLOGIST RUM PROCESSING OPERATOR OFE CANNON M.D. Performed By: #### U HCG #### [facility] [address] CNPNon 02-15-2024 CNPN Normal [facility] CNNURSEon 01-25-2024 CNNURSE Normal [facility] CNPNon 12-30-2023 CNPN Normal [facility] 25(OH)D3 SerPl-mCncon 2023 25-hydroxyvitamin D3 [Mass/Vol] 31.0 ng/mL Normal 31.0-80.0 [facility] Comment on above: Order Comment: Speci men Type: BLOOD SPECIMENOrdering Facility: [facility] Address: [address] [place] [address] Result Comment: Clas sification of 25 [place] Vitamin D status:Deficiency/Insufficiency: < or = 30 ng/ml.Sufficiency/Optimal Levels: 31-80 ng/mLToxicity: > 100 ng/mL.Test performed by chemiluminescent immunoassay. Performed By: #### 1 989-3 ####[facility] LABCLIA [id number] [place] [address] [place] CBC panel Auto (Bld)on 12-26 Erythrocyte distribution width (RBC) [Ratio] 14.6 % Normal 11.5-15.0 [facility] Comment on above: Order Comment: Speci men Type: BLOOD SPECIMENOrdering Facility: [facility] Address: [address] [place] [address] Performed By: #### 5 8410-2 ####[facility] LABCLIA [id number] [place] [address] Hematocrit (Bld) [Volume fraction] 39.6 % Normal 36.0-46.0 [facility] Comment on above: Order Comment: Speci men Type: BLOOD SPECIMENOrdering Facility: [facility] Address: [address] [place] [address] Performed By: #### 5 8410-2 ####[facility] LABCLIA [id number] [place] [address] Hemoglobin (Bld) [Mass/Vol] 13.0 g/dL Normal 11.5-15.5 [facility] Comment on above: Order Comment: Speci men Type: BLOOD SPECIMENOrdering Facility: [facility] Address: [address] [place] [address] Performed By: #### 5 8410-2 ####[facility] LABCLIA [id number] [place] [address] MCH (RBC) [Entitic mass] 30.3 pg Normal 26.0-34.0 [facility] Comment on above: Order Comment: Speci men Type: BLOOD SPECIMENOrdering Facility: [facility] Address: [address] [place] [address] Performed By: #### 5 8410-2 ####[facility] LABCLIA [id number] [place] [address] MCHC (RBC) [Mass/Vol] 32.8 g/dL Normal 30.5-36.0 [facility] Comment on above: Order Comment: Speci men Type: BLOOD SPECIMENOrdering Facility: [facility] Address: [address] [place] [address] Performed By: #### 5 8410-2 ####[facility] LABCLIA [id number] [place] [address] MCV (RBC) [Entitic vol] 92.3 fL Normal 80.0-100.0 [facility] Comment on above: Order Comment: Speci men Type: BLOOD SPECIMENOrdering Facility: [facility] Address: [address] [place] [address] Performed By: #### 5 8410-2 ####[facility] LABCLIA [id number] [place] [address] Nucleated RBC (Bld) [#/Vol] 10*3/uL Normal <0.01 [facility] Comment on above: Order Comment: Speci men Type: BLOOD SPECIMENOrdering Facility: [facility] Address: [address] [place] [address] Performed By: #### 5 8410-2 ####[facility] LABCLIA [id number] [place] [address] Platelet mean volume (Bld) [Entitic vol] 9.8 fL Normal 9.0-12.7 [facility] Comment on above: Order Comment: Speci men Type: BLOOD SPECIMENOrdering Facility: [facility] Address: [address] [place] [address] Performed By: #### 5 8410-2 ####[facility] LABCLIA [id number] [place] [address] Platelets (Bld) [#/Vol] 309 10*3/uL Normal 150-400 [facility] Comment on above: Order Comment: Speci men Type: BLOOD SPECIMENOrdering Facility: [facility] Address: [address] [place] [address] Performed By: #### 5 8410-2 ####[facility] LABCLIA [id number] [place] [address] RBC (Bld) [#/Vol] 4.29 10*6/uL Normal 3.90-5.20 [facility] Comment on above: Order Comment: Speci men Type: BLOOD SPECIMENOrdering Facility: [facility] Address: [address] [place] [address] Performed By: #### 5 8410-2 ####[facility] LABCLIA [id number] [place] [address] WBC (Bld) [#/Vol] 14.93 10*3/uL High 3.70-11.00 [facility] Comment on above: Order Comment: Speci men Type: BLOOD SPECIMENOrdering Facility: [facility] Address: [address] [place] [address] Performed By: #### 5 8410-2 ####[facility] LABCLIA [id number] [place] [address] CNNURSEon 12-27-2023 CNNURSE Normal [facility] CNOVSPon 12-27-2023 CNOVSP Normal [facility] CNPNon 12-27-2023 CNPN Normal [facility] CRP SerPl-mCncon 12-27-2023 CRP [Mass/Vol] mg/L Normal <0.9 [facility] Comment on above: Order Comment: Speci men Type: BLOOD SPECIMENOrdering Facility: [facility] Address: [address] [place] [address] Performed By: #### 1 988-5 ####[facility] LABCLIA [id number] [place] [id number] [facility] Comprehensive metabolic 2000 panelon 12-27-2023 Albumin [Mass/Vol] 4.2 g/dL Normal 3.9-4.9 [facility] Comment on above: Order Comment: Speci men Type: BLOOD SPECIMENOrdering Facility: [facility] Address: [address] [place] [address] Performed By: #### 2 4323-8 ####[facility] LABCLIA [id number] [place] [address] ALP [Catalytic activity/Vol] 77 U/L Normal 34-123 [facility] Comment on above: Order Comment: Speci men Type: BLOOD SPECIMENOrdering Facility: [facility] Address: [address] [place] [address] Performed By: #### 2 4323-8 ####[facility] LABCLIA [id number] [place] [address] ALT [Catalytic activity/Vol] 23 U/L Normal 7-38 [facility] Comment on above: Order Comment: Speci men Type: BLOOD SPECIMENOrdering Facility: [facility] Address: [address] [place], [place] [address] Performed By: #### 2 4323-8 ####[facility] LABCLIA [id number] [place] [address] Anion gap [Moles/Vol] 14 mmol/L Normal 8-15 [facility] Comment on above: Order Comment: Speci men Type: BLOOD SPECIMENOrdering Facility: [facility] Address: [address] [place] [address] Performed By: #### 2 4323-8 ####[facility] LABCLIA [id number] [place] [address] AST [Catalytic activity/Vol] 13 U/L Normal 13-35 [facility] Comment on above: Order Comment: Speci men Type: BLOOD SPECIMENOrdering Facility: [facility] Address: [address] [place] [address] Performed By: #### 2 4323-8 ####[facility] LABCLIA [id number] [place] [address] Bilirubin [Mass/Vol] mg/dL Low 0.2-1.3 [facility] Comment on above: Order Comment: Speci men Type: BLOOD SPECIMENOrdering Facility: [facility] Address: [address] [place] [address] Performed By: #### 2 4323-8 ####[facility] LABCLIA [id number] [place] [address] Calcium [Mass/Vol] 10.0 mg/dL Normal 8.5-10.2 [facility] Comment on above: Order Comment: Speci men Type: BLOOD SPECIMENOrdering Facility: [facility] Address: [address] [place] [address] Performed By: #### 2 4323-8 ####[facility] LABCLIA [id number] [place] [address] Chloride [Moles/Vol] 107 mmol/L Normal 98-107 [facility] Comment on above: Order Comment: Speci men Type: BLOOD SPECIMENOrdering Facility: [facility] Address: [address] [place] [address] Performed By: #### 2 4323-8 ####[facility] LABCLIA [id number] [place] [address] CO2 [Moles/Vol] 23 mmol/L Normal 22-30 [facility] Comment on above: Order Comment: Speci men Type: BLOOD SPECIMENOrdering Facility: [facility] Address: [address] [place] [address] Performed By: #### 2 4323-8 ####[facility] LABCLIA [id number] [place] [address] Creatinine [Mass/Vol] 0.70 mg/dL Normal 0.58-0.96 [facility] Comment on above: Order Comment: Speci men Type: BLOOD SPECIMENOrdering Facility: [facility] Address: [address] [place] [address] Performed By: #### 2 4323-8 ####[facility] LABCLIA [id number] [place] [address] Creatinine and Glomerular filtration rate.predicted panel (S/P/Bld) 110 mL/min/1.73m??? Normal >=60 [facility] Comment on above: Order Comment: Speci men Type: BLOOD SPECIMENOrdering Facility: [facility] Address: [address] [place] [address] Result Comment: Erin mated Glomerular Filtration Rate [...] actual GFR. Performed By: #### 2 4323-8 ####[facility] LABCLIA [id number] [place] [address] Glucose [Mass/Vol] 120 mg/dL High 74-99 [facility] Comment on above: Order Comment: Semaj cortés Type: BLOOD SPECIMENOrdering Facility: [facility] Address: [address] [place] [address] Result Comment: The [place] Diabetes Association (ADA) provides guidance for cutoff [...] Standards of Medical Care in Diabetes 2016, [place] [employer]. Diabetes Care. 2016.39(Suppl 1). Performed By: #### 2 4323-8 ####[facility] LABCLIA [id number] [place] [address] Potassium [Moles/Vol] 4.1 mmol/L Normal 3.7-5.1 [facility] Comment on above: Order Comment: Semaj cortés Type: BLOOD SPECIMENOrdering Facility: [facility] Address: [address] [place] [address] Performed By: #### 2 4323-8 ####[facility] LABCLIA [id number] [place] [address] Protein [Mass/Vol] 7.1 g/dL Normal 6.3-8.0 [facility] Comment on above: Order Comment: Semaj cortés Type: BLOOD SPECIMENOrdering Facility: [facility] Address: [address] [place] [id number] Performed By: #### 2 4323-8 ####[facility] LABCLIA [id number] [place] [address] Sodium [Moles/Vol] 144 mmol/L Normal 136-144 [facility] Comment on above: Order Comment: Speci men Type: BLOOD SPECIMENOrdering Facility: [facility] Address: [address] [place] [address] Performed By: #### 2 4323-8 ####[facility] LABCLIA [id number] [place] [address] Urea nitrogen [Mass/Vol] 13 mg/dL Normal 7-21 [facility] Comment on above: Order Comment: Speci men Type: BLOOD SPECIMENOrdering Facility: [facility] Address: [address] [place] [address] Performed By: #### 2 4323-8 ####[facility] LABCLIA [id number] [place] [address] ESR Westergren method (Bld) [Velocity]on 12-27-2023 ESR (Bld) [Velocity] 31 mm/h High 0-20 [facility] Comment on above: Order Comment: Speci men Type: BLOOD SPECIMENOrdering Facility: [facility] Address: [address] [place] [address] Performed By: #### 4 537-7 ####[facility] LABCLIA [id number] [place] [id number] [place] MR LUMBAR SPINE [...] Normal Not Available CNNURSEon 11-29-2023 CNNURSE Normal [facility] CBC W Auto Differential pane l (Bld)on 11-24-2023 Basophils (Bld) [#/Vol] 0.06 10*3/uL Normal <0.11 [facility] Comment on above: Order Comment: Speci men Type: BLOOD SPECIMENOrdering Facility: [facility] Address: [address] [place] [address] Performed By: #### 5 7021-8 ####[facility] LABCLIA [id number] [place] [address] Basophils/100 WBC (Bld) 0.6 % Normal [facility] Comment on above: Order Comment: Speci men Type: BLOOD SPECIMENOrdering Facility: [facility] Address: [address] [place] [address] Performed By: #### 5 7021-8 ####[facility] LABCLIA [id number] [place] [address] Differential cell count method Nom (Bld) Auto Normal [facility] Comment on above: Order Comment: Speci men Type: BLOOD SPECIMENOrdering Facility: [facility] Address: [address] [place] [address] Performed By: #### 5 7021-8 ####[facility] LABCLIA [id number] [place] [address] Eosinophils (Bld) [#/Vol] 0.04 10*3/uL Normal <0.46 [facility] Comment on above: Order Comment: Speci men Type: BLOOD SPECIMENOrdering Facility: [facility] Address: [address] [place] [address] Performed By: #### 5 7021-8 ####[facility] LABCLIA [id number] [place] [address] Eosinophils/100 WBC (Bld) 0.4 % Normal [facility] Comment on above: Order Comment: Speci men Type: BLOOD SPECIMENOrdering Facility: [facility] Address: [address] [place] [address] Performed By: #### 5 7021-8 ####[facility] LABCLIA [id number] [place] [address] Erythrocyte distribution width (RBC) [Ratio] 14.8 % Normal 11.5-15.0 [facility] Comment on above: Order Comment: Speci men Type: BLOOD SPECIMENOrdering Facility: [facility] Address: [address] [place] [address] Performed By: #### 5 7021-8 ####[facility] LABCLIA [id number] [place] [address] Hematocrit (Bld) [Volume fraction] 40.6 % Normal 36.0-46.0 [facility] Comment on above: Order Comment: Speci men Type: BLOOD SPECIMENOrdering Facility: [facility] Address: [address] [place] [address] Performed By: #### 5 7021-8 ####[facility] LABCLIA [id number] [place] [address] Hemoglobin (Bld) [Mass/Vol] 13.0 g/dL Normal 11.5-15.5 [facility] Comment on above: Order Comment: Speci men Type: BLOOD SPECIMENOrdering Facility: [facility] Address: [address] [place] [address] Performed By: #### 5 7021-8 ####[facility] LABCLIA [id number] [place] [address] Immature granulocytes (Bld) [#/Vol] 0.05 10*3/uL Normal <0.10 [facility] Comment on above: Order Comment: Speci men Type: BLOOD SPECIMENOrdering Facility: [facility] Address: [address] [place] [address] Performed By: #### 5 7021-8 ####[facility] LABCLIA [id number] [place] [address] Immature granulocytes/100 WBC (Bld) 0.5 % Normal [facility] Comment on above: Order Comment: Speci men Type: BLOOD SPECIMENOrdering Facility: [facility] Address: [address] [place] [address] Performed By: #### 5 7021-8 ####[facility] LABCLIA [id number] [place] [address] Lymphocytes (Bld) [#/Vol] 1.87 10*3/uL Normal 1.00-4.00 [facility] Comment on above: Order Comment: Speci men Type: BLOOD SPECIMENOrdering Facility: [facility] Address: [address] [place] [address] Performed By: #### 5 7021-8 ####[facility] LABCLIA [id number] [place] [address] Lymphocytes/100 WBC (Bld) 17.5 % Normal [facility] Comment on above: Order Comment: Speci men Type: BLOOD SPECIMENOrdering Facility: [facility] Address: [address] [place] [address] Performed By: #### 5 7021-8 ####[facility] LABCLIA [id number] [place] [address] MCH (RBC) [Entitic mass] 29.3 pg Normal 26.0-34.0 [facility] Comment on above: Order Comment: Speci men Type: BLOOD SPECIMENOrdering Facility: [facility] Address: [address] [place] [address] Performed By: #### 5 7021-8 ####[facility] LABCLIA [id number] [place] [address] MCHC (RBC) [Mass/Vol] 32.0 g/dL Normal 30.5-36.0 [facility] Comment on above: Order Comment: Speci men Type: BLOOD SPECIMENOrdering Facility: [facility] Address: [address] [place] [address] Performed By: #### 5 7021-8 ####[facility] LABCLIA [id number] [place] [address] MCV (RBC) [Entitic vol] 91.4 fL Normal 80.0-100.0 [facility] Comment on above: Order Comment: Speci men Type: BLOOD SPECIMENOrdering Facility: [facility] Address: [address] [place] [address] Performed By: #### 5 7021-8 ####[facility] LABCLIA [id number] [place] [address] Monocytes (Bld) [#/Vol] 0.39 10*3/uL Normal <0.87 [facility] Comment on above: Order Comment: Speci men Type: BLOOD SPECIMENOrdering Facility: [facility] Address: [address] [place] [address] Performed By: #### 5 7021-8 ####[facility] LABCLIA [id number] [place] [address] Monocytes/100 WBC (Bld) 3.6 % Normal [facility] Comment on above: Order Comment: Speci men Type: BLOOD SPECIMENOrdering Facility: [facility] Address: [address] [place] [address] Performed By: #### 5 7021-8 ####[facility] LABCLIA [id number] [place] [address] Neutrophils (Bld) [#/Vol] 8.28 10*3/uL High 1.45-7.50 [facility] Comment on above: Order Comment: Speci men Type: BLOOD SPECIMENOrdering Facility: [facility] Address: [address] [place] [address] Performed By: #### 5 7021-8 ####[facility] LABCLIA [id number] [place] [address] Neutrophils/100 WBC (Bld) 77.4 % Normal [facility] Comment on above: Order Comment: Speci men Type: BLOOD SPECIMENOrdering Facility: [facility] Address: [address] [place] [address] Performed By: #### 5 7021-8 ####[facility] LABCLIA [id number] [place] [address] Nucleated RBC (Bld) [#/Vol] 10*3/uL Normal <0.01 [facility] Comment on above: Order Comment: Speci men Type: BLOOD SPECIMENOrdering Facility: [facility] Address: [address] [place] [address] Performed By: #### 5 7021-8 ####[facility] LABCLIA [id number] [place] [address] Nucleated RBC/100 WBC (Bld) [Ratio] 0.0 /100 WBC Normal [facility] Comment on above: Order Comment: Speci men Type: BLOOD SPECIMENOrdering Facility: [facility] Address: [address] [place] [address] Performed By: #### 5 7021-8 ####[facility] LABIA [id number] [place] [address] Platelet mean volume (Bld) [Entitic vol] 9.6 fL Normal 9.0-12.7 [facility] Comment on above: Order Comment: Speci men Type: BLOOD SPECIMENOrdering Facility: [facility] Address: [address] [place] [address] Performed By: #### 5 7021-8 ####[facility] LABCLIA [id number] [place] [address] Platelets (Bld) [#/Vol] 271 10*3/uL Normal 150-400 [facility] Comment on above: Order Comment: Speci men Type: BLOOD SPECIMENOrdering Facility: [facility] Address: [address] [place] [address] Performed By: #### 5 7021-8 ####[facility] LABIA [id number] [place] [address] RBC (Bld) [#/Vol] 4.44 10*6/uL Normal 3.90-5.20 [facility] Comment on above: Order Comment: Speci men Type: BLOOD SPECIMENOrdering Facility: [facility] Address: [address] [place] [address] Performed By: #### 5 7021-8 ####[facility] LABIA [id number] [place] [address] WBC (Bld) [#/Vol] 10.69 10*3/uL Normal 3.70-11.00 [facility] Comment on above: Order Comment: Speci men Type: BLOOD SPECIMENOrdering Facility: [facility] Address: [address] [place] [address] Performed By: #### 5 7021-8 ####[facility] LABCLIA [id number] [place] [address] Comprehensive metabolic 2000 panelon 11-24-2023 Albumin [Mass/Vol] 4.1 g/dL Normal 3.9-4.9 [facility] Comment on above: Order Comment: Speci men Type: BLOOD SPECIMENOrdering Facility: [facility] Address: [address] [place] [address] Performed By: #### 2 4323-8 ####[facility] LABCLIA [id number] [place] [address] ALP [Catalytic activity/Vol] 69 U/L Normal 34-123 [facility] Comment on above: Order Comment: Speci men Type: BLOOD SPECIMENOrdering Facility: [facility] Address: [address] [place] [address] Performed By: #### 2 4323-8 ####[facility] LABCLIA [id number] [place] [address] ALT [Catalytic activity/Vol] 24 U/L Normal 7-38 [facility] Comment on above: Order Comment: Speci men Type: BLOOD SPECIMENOrdering Facility: [facility] Address: [address] [place] [address] Performed By: #### 2 4323-8 ####[facility] LABCLIA [id number] [place] [address] Anion gap [Moles/Vol] 9 mmol/L Normal 8-15 [facility] Comment on above: Order Comment: Speci men Type: BLOOD SPECIMENOrdering Facility: [facility] Address: [address] [place] [address] Performed By: #### 2 4323-8 ####[facility] LABCLIA [id number] [place] [address] AST [Catalytic activity/Vol] 13 U/L Normal 13-35 [facility] Comment on above: Order Comment: Speci men Type: BLOOD SPECIMENOrdering Facility: [facility] Address: [address] [place] [address] Performed By: #### 2 4323-8 ####[facility] LABCLIA [id number] [place] [address] Bilirubin [Mass/Vol] 0.2 mg/dL Normal 0.2-1.3 [facility] Comment on above: Order Comment: Speci men Type: BLOOD SPECIMENOrdering Facility: [facility] Address: [address] [place] [address] Performed By: #### 2 4323-8 ####[facility] LABCLIA [id number] [place] [address] Calcium [Mass/Vol] 9.9 mg/dL Normal 8.5-10.2 [facility] Comment on above: Order Comment: Speci men Type: BLOOD SPECIMENOrdering Facility: [facility] Address: [address] [place] [address] Performed By: #### 2 4323-8 ####[facility] LABCLIA [id number] [place] [address] Chloride [Moles/Vol] 104 mmol/L Normal 98-107 [facility] Comment on above: Order Comment: Speci men Type: BLOOD SPECIMENOrdering Facility: [facility] Address: [address] [place] [address] Performed By: #### 2 4323-8 ####[facility] LABCLIA [id number] [place] [address] CO2 [Moles/Vol] 24 mmol/L Normal 22-30 [facility] Comment on above: Order Comment: Speci men Type: BLOOD SPECIMENOrdering Facility: [facility] Address: [address] [place] [address] Performed By: #### 2 4323-8 ####[facility] LABCLIA [id number] [place] [address] Creatinine [Mass/Vol] 0.74 mg/dL Normal 0.58-0.96 [facility] Comment on above: Order Comment: Speci men Type: BLOOD SPECIMENOrdering Facility: [facility] Address: [address] [place] [address] Performed By: #### 2 4323-8 ####[facility] LABCLIA [id number] [place] [address] Creatinine and Glomerular filtration rate.predicted panel (S/P/Bld) 103 mL/min/1.73m??? Normal >=60 [facility] Comment on above: Order Comment: Semaj cortés Type: BLOOD SPECIMENOrdering Facility: [facility] Address: [address] [place] [id number] Result Comment: Erin mated Glomerular Filtration Rate [...] actual GFR. Performed By: #### 2 4323-8 ####[facility] LABCLIA [id number] [place] [address] Glucose [Mass/Vol] 185 mg/dL High 74-99 [facility] Comment on above: Order Comment: Semaj cortés Type: BLOOD SPECIMENOrdering Facility: [facility] Address: [address] [id number] Result Comment: The [place] Diabetes Association (ADA) provides guidance for cutoff [...] Standards of Medical Care in Diabetes 2016, [place] Diabetes Association. Diabetes Care. 2016.39(Suppl 1). Performed By: #### 2 4323-8 ####[facility] LABCLIA [id number] [place] [address] Potassium [Moles/Vol] 4.2 mmol/L Normal 3.7-5.1 [facility] Comment on above: Order Comment: Semaj cortés Type: BLOOD SPECIMENOrdering Facility: [facility] Address: [address] [place] [address] Performed By: #### 2 4323-8 ####[facility] LABCLIA [id number] [place] [address] Protein [Mass/Vol] 7.1 g/dL Normal 6.3-8.0 [facility] Comment on above: Order Comment: Speci men Type: BLOOD SPECIMENOrdering Facility: [facility] Address: [address] [place] [address] Performed By: #### 2 4323-8 ####[facility] LABCLIA [id number] [place] [address] Sodium [Moles/Vol] 137 mmol/L Normal 136-144 [facility] Comment on above: Order Comment: Speci men Type: BLOOD SPECIMENOrdering Facility: [facility] Address: [address] [place] [address] Performed By: #### 2 4323-8 ####[facility] LABCLIA [id number] [place] [address] Urea nitrogen [Mass/Vol] 12 mg/dL Normal 7-21 [facility] Comment on above: Order Comment: Speci men Type: BLOOD SPECIMENOrdering Facility: [facility] Address: [address] [place] [address] Performed By: #### 2 4323-8 ####[facility] LABCLIA [id number] [place] [address] ESR Westergren method (Bld) [Velocity]on 11-24-2023 ESR (Bld) [Velocity] 32 mm/h High 0-20 [facility] Comment on above: Order Comment: Speci men Type: BLOOD SPECIMENOrdering Facility: [facility] Address: [address] [place] [address] Performed By: #### 4 537-7 ####[facility] LABCLIA [id number] [facility] [place] [address] [place] Ferritin SerPl-mCncon 2023 Ferritin [Mass/Vol] 31.5 ng/mL Normal 14.7-205.1 [facility] Comment on above: Order Comment: Speci men Type: BLOOD SPECIMENOrdering Facility: [facility] Address: [address] [place] [address] Performed By: #### 5 0190-8, 2131-9, 6-4, 2283-8 ####[facility] LABCLIA [id number] [place] [address] [place] Folate SerPl-mCncon 11-24-19 24 Folate [Mass/Vol] 3.0 ng/mL Low >4.7 [facility] Comment on above: Order Comment: Speci men Type: BLOOD SPECIMENOrdering Facility: [facility] Address: [address] [place] [address] Performed By: #### 5 0190-8, 2131-9, 2275-4, 8 ####[facility] LABCLIA [id number] [place] [address] [place] IgA SerPl-mCncon 11-24-2023 IgA [Mass/Vol] 162 mg/dL Normal 70-400 [facility] Comment on above: Order Comment: Speci men Type: BLOOD SPECIMENOrdering Facility: [facility] Address: [address] [place] [address] Performed By: #### 2 458-8, 2465-3, 2472-9 ####[facility] LABCLIA [id number] [place] [address] [place] IgE SerPl-aCncon 11-24-2023 IgE Qn 5.8 kU/l Normal <114.0 [facility] Comment on above: Order Comment: Speci men Type: BLOOD SPECIMENOrdering Facility: [facility] Address: [address] [place] [address] Performed By: #### 1 9113-0 ####[facility] LABCLIA [id number] [address] [address] [place] IgG SerPl-mCncon 11-24-2023 IgG [Mass/Vol] 526 mg/dL Low 700-1600 [facility] Comment on above: Order Comment: Speci men Type: BLOOD SPECIMENOrdering Facility: [facility] Address: [address] [place] [address] Performed By: #### 2 458-8, 2465-3, 9 ####[facility] LABIA [id number] [place] [id number] [place] IgM SerPl-mCncon 11-24-2023 IgM [Mass/Vol] 389 mg/dL High 40-230 [facility] Comment on above: Order Comment: Speci men Type: BLOOD SPECIMENOrdering Facility: [facility] Address: [address] [place] [address] Performed By: #### 2 458-8, 2465-3, 9 ####[facility] [id number] [place] [id number] [place] Iron and Iron binding capaci ty panelon 11-24-2023 Iron [Mass/Vol] 65 ug/dL Normal 41-186 [facility] Comment on above: Order Comment: Speci men Type: BLOOD SPECIMENOrdering Facility: [facility] Address: [address] [place] [address] Performed By: #### 5 0190-8, 9, 4, 8 ####[facility] LABIA [id number] [place] [id number] [place] Iron binding capacity [Mass/Vol] 373 ug/dL Normal 232-386 [facility] Comment on above: Order Comment: Speci men Type: BLOOD SPECIMENOrdering Facility: [facility] Address: [address] [place] [address] Performed By: #### 5 0190-8, 9, 4, 2283-12 ####[facility] LABCLIA [id number] [address] [address] [place] Iron/TIBC [Molar ratio] 17.4 % Normal 15.0-57.0 [facility] Comment on above: Order Comment: Speci men Type: BLOOD SPECIMENOrdering Facility: [facility] Address: [address] [place] [address] Performed By: #### 5 0190-8, 2132-01, 2275-08, 2283-12 ####[facility] LABCLIA [id number] [place] [id number] [place] Vit B12 [facility] 024 Cobalamin (Vitamin B12) [Mass/Vol] 633 pg/mL Normal 232-1245 [facility] Comment on above: Order Comment: Speci men Type: BLOOD SPECIMENOrdering Facility: [facility] Address: [address] [place] [address] Performed By: #### 5 0190-8, 2132-01, 2275-08, 2283-12 ####[facility] LABIA [id number] [place] [id number] [place] CNNURSEon 10-27-2023 CNNURSE Normal [facility] CNNURSEon 09-30-2023 CNNURSE Normal [facility] CNPNon 09-04-2023 CNPN Normal [facility] 25(OH)D3 [facility] 2023 25-hydroxyvitamin D3 [Mass/Vol] 32.2 ng/mL Normal 31.0-80.0 [facility] Comment on above: Order Comment: Speci men Type: BLOOD SPECIMENOrdering Facility: [facility] Address: [address] [place] [address] Result Comment: Clas sification of 25 [place] Vitamin D status:Deficiency/Insufficiency: < or = 30 ng/ml.Sufficiency/Optimal Levels: 31-80 ng/mLToxicity: > 100 ng/mL.Test performed by chemiluminescent immunoassay. Performed By: #### 1 989-3 ####[facility] LABCLIA [id number] [facility] [id number] [id number] [place] CBC W Auto Differential pane l (Bld)on 08-31-2023 Basophils (Bld) [#/Vol] 0.07 10*3/uL Normal <0.11 [facility] Comment on above: Order Comment: Speci men Type: BLOOD SPECIMENOrdering Facility: [facility] Address: [address] [place] [address] Performed By: #### 5 7021-8 ####[facility] LABCLIA [id number] [place] [address] Basophils/100 WBC (Bld) 0.5 % Normal [facility] Comment on above: Order Comment: Speci men Type: BLOOD SPECIMENOrdering Facility: [facility] Address: [address] [place] [address] Performed By: #### 5 7021-8 ####[facility] LABCLIA [id number] [place] [address] Differential cell count method Nom (Bld) Auto Normal [facility] Comment on above: Order Comment: Speci men Type: BLOOD SPECIMENOrdering Facility: [facility] Address: [address] [place] [address] Performed By: #### 5 7021-8 ####[facility] LABCLIA [id number] [place] [address] Eosinophils (Bld) [#/Vol] 0.20 10*3/uL Normal <0.46 [facility] Comment on above: Order Comment: Speci men Type: BLOOD SPECIMENOrdering Facility: [facility] Address: [address] [place] [address] Performed By: #### 5 7021-8 ####[facility] LABCLIA [id number] [place] [address] Eosinophils/100 WBC (Bld) 1.5 % Normal [facility] Comment on above: Order Comment: Speci men Type: BLOOD SPECIMENOrdering Facility: [facility] Address: [address] [place] [address] Performed By: #### 5 7021-8 ####[facility] LABCLIA [id number] [place] [address] Erythrocyte distribution width (RBC) [Ratio] 14.6 % Normal 11.5-15.0 [facility] Comment on above: Order Comment: Speci men Type: BLOOD SPECIMENOrdering Facility: [facility] Address: [address] [place] [address] Performed By: #### 5 7021-8 ####[facility] LABCLIA [id number] [place] [address] Hematocrit (Bld) [Volume fraction] 41.5 % Normal 36.0-46.0 [facility] Comment on above: Order Comment: Speci men Type: BLOOD SPECIMENOrdering Facility: [facility] Address: [address] [place] [address] Performed By: #### 5 7021-8 ####[facility] LABIA [id number] [place] [address] Hemoglobin (Bld) [Mass/Vol] 13.3 g/dL Normal 11.5-15.5 [facility] Comment on above: Order Comment: Speci men Type: BLOOD SPECIMENOrdering Facility: [facility] Address: [address] [place] [address] Performed By: #### 5 7021-8 ####[facility] LABCLIA [id number] [place] [address] Immature granulocytes (Bld) [#/Vol] 0.14 10*3/uL High <0.10 [facility] Comment on above: Order Comment: Speci men Type: BLOOD SPECIMENOrdering Facility: [facility] Address: [address] [place] [address] Performed By: #### 5 7021-8 ####[facility] LABCLIA [id number] [place] [address] Immature granulocytes/100 WBC (Bld) 1.0 % Normal [facility] Comment on above: Order Comment: Speci men Type: BLOOD SPECIMENOrdering Facility: [facility] Address: [address] [place] [address] Performed By: #### 5 7021-8 ####[facility] LABCLIA [id number] [place] [address] Lymphocytes (Bld) [#/Vol] 2.58 10*3/uL Normal 1.00-4.00 [facility] Comment on above: Order Comment: Speci men Type: BLOOD SPECIMENOrdering Facility: [facility] Address: [address] [place] [address] Performed By: #### 5 7021-8 ####[facility] LABCLIA [id number] [place] [address] Lymphocytes/100 WBC (Bld) 19.2 % Normal [facility] Comment on above: Order Comment: Speci men Type: BLOOD SPECIMENOrdering Facility: [facility] Address: [address] [place] [address] Performed By: #### 5 7021-8 ####[facility] LABCLIA [id number] [place] [address] MCH (RBC) [Entitic mass] 30.0 pg Normal 26.0-34.0 [facility] Comment on above: Order Comment: Speci men Type: BLOOD SPECIMENOrdering Facility: [facility] Address: [address] [place] [address] Performed By: #### 5 7021-8 ####[facility] LABIA [id number] [place] [address] MCHC (RBC) [Mass/Vol] 32.0 g/dL Normal 30.5-36.0 [facility] Comment on above: Order Comment: Speci men Type: BLOOD SPECIMENOrdering Facility: [facility] Address: [address] [place] [address] Performed By: #### 5 7021-8 ####[facility] LABCLIA [id number] [place] [address] MCV (RBC) [Entitic vol] 93.7 fL Normal 80.0-100.0 [facility] Comment on above: Order Comment: Speci men Type: BLOOD SPECIMENOrdering Facility: [facility] Address: [address] [place] [address] Performed By: #### 5 7021-8 ####[facility] LABIA [id number] [place] [address] Monocytes (Bld) [#/Vol] 0.75 10*3/uL Normal <0.87 [facility] Comment on above: Order Comment: Speci men Type: BLOOD SPECIMENOrdering Facility: [facility] Address: [address] [place] [address] Performed By: #### 5 7021-8 ####[facility] LABIA [id number] [place] [address] Monocytes/100 WBC (Bld) 5.6 % Normal [facility] Comment on above: Order Comment: Speci men Type: BLOOD SPECIMENOrdering Facility: [facility] Address: [address] [place] [address] Performed By: #### 5 7021-8 ####[facility] LABCLIA [id number] [place] [address] Neutrophils (Bld) [#/Vol] 9.69 10*3/uL High 1.45-7.50 [facility] Comment on above: Order Comment: Speci men Type: BLOOD SPECIMENOrdering Facility: [facility] Address: [address] [place] [address] Performed By: #### 5 7021-8 ####[facility] LABCLIA [id number] [place] [address] Neutrophils/100 WBC (Bld) 72.2 % Normal [facility] Comment on above: Order Comment: Speci men Type: BLOOD SPECIMENOrdering Facility: [facility] Address: [address] [place] [address] Performed By: #### 5 7021-8 ####[facility] LABCLIA [id number] [place] [address] Nucleated RBC (Bld) [#/Vol] 10*3/uL Normal <0.01 [facility] Comment on above: Order Comment: Speci men Type: BLOOD SPECIMENOrdering Facility: [facility] Address: [address] [place] [address] Performed By: #### 5 7021-8 ####[facility] LABCLIA [id number] [place] [address] Nucleated RBC/100 WBC (Bld) [Ratio] 0.0 /100 WBC Normal [facility] Comment on above: Order Comment: Speci men Type: BLOOD SPECIMENOrdering Facility: [facility] Address: [address] [place] [address] Performed By: #### 5 7021-8 ####[facility] LABCLIA [id number] [place] [address] Platelet mean volume (Bld) [Entitic vol] 9.6 fL Normal 9.0-12.7 [facility] Comment on above: Order Comment: Speci men Type: BLOOD SPECIMENOrdering Facility: [facility] Address: [address] [place] [address] Performed By: #### 5 7021-8 ####[facility] LABCLIA [id number] [place] [address] Platelets (Bld) [#/Vol] 304 10*3/uL Normal 150-400 [facility] Comment on above: Order Comment: Speci men Type: BLOOD SPECIMENOrdering Facility: [facility] Address: [address] [place] [address] Performed By: #### 5 7021-8 ####[facility] LABCLIA [id number] [place] [address] RBC (Bld) [#/Vol] 4.43 10*6/uL Normal 3.90-5.20 [facility] Comment on above: Order Comment: Speci men Type: BLOOD SPECIMENOrdering Facility: [facility] Address: [address] [place] [address] Performed By: #### 5 7021-8 ####[facility] LABCLIA [id number] [place] [address] WBC (Bld) [#/Vol] 13.43 10*3/uL High 3.70-11.00 [facility] Comment on above: Order Comment: Speci men Type: BLOOD SPECIMENOrdering Facility: [facility] Address: [address] [place] [address] Performed By: #### 5 7021-8 ####[facility] LABCLIA [id number] [place] [address] CNNURSEon 08-31-2023 CNNURSE Normal [facility] CRP SerPl-mCncon 08-31-2023 CRP [Mass/Vol] 0.6 mg/dL Normal <0.9 [facility] Comment on above: Order Comment: Speci men Type: BLOOD SPECIMENOrdering Facility: [facility] Address: [address] [place] [address] Performed By: #### 1 988-5, 66516-5, 2276-4 ####[facility] LABCLIA [id number] [facility] [place] [address] [facility] Comprehensive metabolic 2000 panelon 08-31-2023 Albumin [Mass/Vol] 4.0 g/dL Normal 3.9-4.9 [facility] Comment on above: Order Comment: Speci men Type: BLOOD SPECIMENOrdering Facility: [facility] Address: [address] [place] [address] Performed By: #### 2 4323-8 ####[facility] LABCLIA [id number] [place] [address] ALP [Catalytic activity/Vol] 69 U/L Normal 34-123 [facility] Comment on above: Order Comment: Speci men Type: BLOOD SPECIMENOrdering Facility: [facility] Address: [address] [place] [address] Performed By: #### 2 4323-8 ####[facility] LABCLIA [id number] [place] [address] ALT [Catalytic activity/Vol] 31 U/L Normal 7-38 [facility] Comment on above: Order Comment: Speci men Type: BLOOD SPECIMENOrdering Facility: [facility] Address: [address] [place] [address] Performed By: #### 2 4323-8 ####[facility] LABCLIA [id number] [place] [address] Anion gap [Moles/Vol] 11 mmol/L Normal 9-18 [facility] Comment on above: Order Comment: Speci men Type: BLOOD SPECIMENOrdering Facility: [facility] Address: [address] [place] [address] Performed By: #### 2 4323-8 ####[facility] LABCLIA [id number] [place] [address] AST [Catalytic activity/Vol] 18 U/L Normal 13-35 [facility] Comment on above: Order Comment: Speci men Type: BLOOD SPECIMENOrdering Facility: [facility] Address: [address] [place], [place] [address] Performed By: #### 2 4323-8 ####[facility] LABCLIA [id number] [place] [address] Bilirubin [Mass/Vol] 0.3 mg/dL Normal 0.2-1.3 [facility] Comment on above: Order Comment: Speci men Type: BLOOD SPECIMENOrdering Facility: [facility] Address: [address] [place] [address] Performed By: #### 2 4323-8 ####[facility] LABCLIA [id number] [place] [address] Calcium [Mass/Vol] 10.0 mg/dL Normal 8.5-10.2 [facility] Comment on above: Order Comment: Speci men Type: BLOOD SPECIMENOrdering Facility: [facility] Address: [address] [place] [address] Performed By: #### 2 4323-8 ####[facility] LABCLIA [id number] [place] [address] Chloride [Moles/Vol] 105 mmol/L Normal 97-105 [facility] Comment on above: Order Comment: Speci men Type: BLOOD SPECIMENOrdering Facility: [facility] Address: [address] [place] [address] Performed By: #### 2 4323-8 ####[facility] LABCLIA [id number] [place] [address] CO2 [Moles/Vol] 25 mmol/L Normal 22-30 [facility] Comment on above: Order Comment: Speci men Type: BLOOD SPECIMENOrdering Facility: [facility] Address: [address] [place] [address] Performed By: #### 2 4323-8 ####[facility] LABCLIA [id number] [place] [address] Creatinine [Mass/Vol] 0.80 mg/dL Normal 0.58-0.96 [facility] [place] Comment on above: Order Comment: Speci men Type: BLOOD SPECIMENOrdering Facility: [facility] Address: [address] [place] [address] Performed By: #### 2 4323-8 ####[facility] LABCLIA [id number] [place] [address] Creatinine and Glomerular filtration rate.predicted panel (S/P/Bld) 94 mL/min/1.73m??? Normal >=60 [facility] [facility] Comment on above: Order Comment: Semaj cortés Type: BLOOD SPECIMENOrdering Facility: [facility] Address: [address] [place] [address] Result Comment: Erin mated Glomerular Filtration Rate [...] actual GFR. Performed By: #### 2 4323-8 ####[facility] LABCLIA [id number] [place] [address] Glucose [Mass/Vol] 160 mg/dL High 74-99 [facility] Comment on above: Order Comment: Semaj cortés Type: BLOOD SPECIMENOrdering Facility: [facility] Address: [address] [place] [address] Result Comment: The [place] Diabetes Association (ADA) provides guidance for cutoff [...] Standards of Medical Care in Diabetes 2016, [place] Diabetes Association. Diabetes Care. 2016.39(Suppl 1). Performed By: #### 2 4323-8 ####[facility] LABCLIA [id number] [place] [address] Potassium [Moles/Vol] 4.2 mmol/L Normal 3.7-5.1 [facility] Comment on above: Order Comment: Semaj cortés Type: BLOOD SPECIMENOrdering Facility: [facility] Address: [address] [place] [address] Performed By: #### 2 4323-8 ####[facility] LABCLIA [id number] [place] [address] Protein [Mass/Vol] 6.9 g/dL Normal 6.3-8.0 [facility] Comment on above: Order Comment: Speci men Type: BLOOD SPECIMENOrdering Facility: [facility] Address: [address] [place] [address] Performed By: #### 2 4323-8 ####[facility] LABCLIA [id number] [place] [address] Sodium [Moles/Vol] 141 mmol/L Normal 136-144 [facility] Comment on above: Order Comment: Speci men Type: BLOOD SPECIMENOrdering Facility: [facility] Address: [address] [place] [address] Performed By: #### 2 4323-8 ####[facility] LABCLIA [id number] [place] [address] Urea nitrogen [Mass/Vol] 13 mg/dL Normal 7-21 [facility] Comment on above: Order Comment: Speci men Type: BLOOD SPECIMENOrdering Facility: [facility] Address: [address] [place] [address] Performed By: #### 2 4323-8 ####[facility] LABCLIA [id number] [place] [address] ESR Westergren method (Bld) [Velocity]on 08-31-2023 ESR (Bld) [Velocity] 37 mm/h High 0-20 [facility] Comment on above: Order Comment: Speci men Type: BLOOD SPECIMENOrdering Facility: [facility] Address: [address] [place] [address] Performed By: #### 4 537-7 ####[facility] LABCLIA [id number] [address] [place] Ferritin [facility] Ferritin [Mass/Vol] 60.3 ng/mL Normal 14.7-205.1 [facility] Comment on above: Order Comment: Speci men Type: BLOOD SPECIMENOrdering Facility: [facility] Address: [address] [place] [address] Performed By: #### 1 988-5, 98074-6, 2275-4 ####[facility] LABCLIA [id number] [place] [address] [place] Folate [facility]19 24 Folate [Mass/Vol] ng/mL Normal >4.7 [facility] Comment on above: Order Comment: Speci men Type: BLOOD SPECIMENOrdering Facility: [facility] Address: [address] [place] [address] Result Comment: A re sult of > 20 ng/mL is not necessarily indicative of a pathologic or treatable condition: it reflects a limitation of the test methodology.Assay reference range: 4.8 to 24.2 ng/mL. Suitable for detection of folate deficiency.Reference:Folate III (Folate III) [package insert V 1.0 [place]ese]. [facility], [place], [place]: March 2015. Performed By: #### 2 132-9, 2284-8 ####[facility] LABIA [id number] [place] [address] [place] Iron and Iron binding capaci panelon 08-31-2023 Iron [Mass/Vol] 87 ug/dL Normal 41-186 [facility] Comment on above: Order Comment: Speci men Type: BLOOD SPECIMENOrdering Facility: [facility] Address: [address] [place] [address] Performed By: #### 1 988-5, 88365-3, 6-4 ####[facility] LABCLIA [id number] [place] [address] [place] Iron binding capacity [Mass/Vol] 356 ug/dL Normal 232-386 [facility] Comment on above: Order Comment: Speci men Type: BLOOD SPECIMENOrdering Facility: [facility] Address: [address] [place] [address] Performed By: #### 1 988-5, 38965-5, 6-4 ####[facility] LABCLIA [id number] [place] [address] [place] Iron/TIBC [Molar ratio] 24.4 % Normal 15.0-57.0 [facility] Comment on above: Order Comment: Speci men Type: BLOOD SPECIMENOrdering Facility: [facility] Address: [address] [place] [address] Performed By: #### 1 988-5, 18055-7, 6-4 ####[facility] LABCLIA [id number] [place] [address] [place] Vit B12 SerPl-ncon 024 Cobalamin (Vitamin B12) [Mass/Vol] 820 pg/mL Normal 232-1245 [facility] Comment on above: Order Comment: Speci men Type: BLOOD SPECIMENOrdering Facility: [facility] Address: [address] [place] [address] Performed By: #### 2 132-9, 2284-8 ####[facility] LABIA [id number] [place] [address] [place] CNNURSEon 08-05-2023 CNNURSE Normal [facility] CNNURSEon 07-13-2023 CNNURSE Normal [facility] ECG 12 Leadon 07-13-2023 ECG revealed normal sinus rhythm [facility] Work Phone: CNPNon 06-12-2023 CNPN Normal [facility] 25(OH)D3 SerPl-mCncon 2023 25-hydroxyvitamin D3 [Mass/Vol] 17.3 ng/mL Low 31.0-80.0 [facility] Comment on above: Order Comment: Speci men Type: BLOOD SPECIMENOrdering Facility: [facility] Address: [address] [place] [address] Result Comment: Clas sification of 25 [place] Vitamin D status:Deficiency/Insufficiency: < or = 30 ng/ml.Sufficiency/Optimal Levels: 31-80 ng/mLToxicity: > 100 ng/mL.Test performed by chemiluminescent immunoassay. Performed By: #### 1 989-3 ####[facility] LABCLIA [id number] [facility] [id number] OF [facility] CBC panel Auto (Bld)on 06-10 Erythrocyte distribution width (RBC) [Ratio] 14.5 % Normal 11.5-15.0 [facility] Comment on above: Order Comment: Speci men Type: BLOOD SPECIMENOrdering Facility: [facility] Address: [address] [place] [address] Performed By: #### 5 8410-2 ####[facility] LABCLIA [id number] [place] [address] Hematocrit (Bld) [Volume fraction] 43.1 % Normal 36.0-46.0 [facility] Comment on above: Order Comment: Speci men Type: BLOOD SPECIMENOrdering Facility: [facility] Address: [address] [place] [address] Performed By: #### 5 8410-2 ####[facility] LABCLIA [id number] [place] [address] Hemoglobin (Bld) [Mass/Vol] 13.9 g/dL Normal 11.5-15.5 [facility] Comment on above: Order Comment: Speci men Type: BLOOD SPECIMENOrdering Facility: [facility] Address: [address] [place] [address] Performed By: #### 5 8410-2 ####[facility] LABCLIA [id number] [place] [address] MCH (RBC) [Entitic mass] 30.6 pg Normal 26.0-34.0 [facility] Comment on above: Order Comment: Speci men Type: BLOOD SPECIMENOrdering Facility: [facility] Address: [address] [place] [address] Performed By: #### 5 8410-2 ####[facility] LABCLIA [id number] [place] [address] MCHC (RBC) [Mass/Vol] 32.3 g/dL Normal 30.5-36.0 [facility] Comment on above: Order Comment: Speci men Type: BLOOD SPECIMENOrdering Facility: [facility] Address: [address] [place] [address] Performed By: #### 5 8410-2 ####[facility] LABCLIA [id number] [place] [address] MCV (RBC) [Entitic vol] 94.9 fL Normal 80.0-100.0 [facility] Comment on above: Order Comment: Speci men Type: BLOOD SPECIMENOrdering Facility: [facility] Address: [address] [place] [address] Performed By: #### 5 8410-2 ####[facility] LABCLIA [id number] [place] [address] Nucleated RBC (Bld) [#/Vol] 10*3/uL Normal <0.01 [facility] Comment on above: Order Comment: Speci men Type: BLOOD SPECIMENOrdering Facility: [facility] Address: [address] [place] [address] Performed By: #### 5 8410-2 ####[facility] LABCLIA [id number] [place] [address] Platelet mean volume (Bld) [Entitic vol] 9.5 fL Normal 9.0-12.7 [facility] Comment on above: Order Comment: Speci men Type: BLOOD SPECIMENOrdering Facility: [facility] Address: [address] [place] [address] Performed By: #### 5 8410-2 ####[facility] LABCLIA [id number] [place] [address] Platelets (Bld) [#/Vol] 320 10*3/uL Normal 150-400 [facility] Comment on above: Order Comment: Speci men Type: BLOOD SPECIMENOrdering Facility: [facility] Address: [address] [place] [address] Performed By: #### 5 8410-2 ####[facility] LABCLIA [id number] [place] [address] RBC (Bld) [#/Vol] 4.54 10*6/uL Normal 3.90-5.20 [facility] Comment on above: Order Comment: Speci men Type: BLOOD SPECIMENOrdering Facility: [facility] Address: [address] [place] [address] Performed By: #### 5 8410-2 ####[facility] LABCLIA [id number] [place] [address] WBC (Bld) [#/Vol] 15.15 10*3/uL High 3.70-11.00 [facility] Comment on above: Order Comment: Speci men Type: BLOOD SPECIMENOrdering Facility: [facility] Address: [address] [place] [address] Performed By: #### 5 8410-2 ####[facility] LABCLIA [id number] [place] [address] CNNURSEon 06-10-2023 CNNURSE Normal [facility] CNOVSPon 06-10-2023 CNOVSP Normal [facility] CRP SerPl-mCncon 06-10-2023 CRP [Mass/Vol] mg/L Normal <0.9 [facility] Comment on above: Order Comment: Speci men Type: BLOOD SPECIMENOrdering Facility: [facility] Address: [address] [place] [address] Performed By: #### 1 988-5 ####[facility] LABCLIA [id number] [facility] [id number] OF [facility] Comprehensive metabolic 2000 panelon 06-10-2023 Albumin [Mass/Vol] 4.1 g/dL Normal 3.9-4.9 [facility] Comment on above: Order Comment: Speci men Type: BLOOD SPECIMENOrdering Facility: [facility] Address: [address] [place] [address] Performed By: #### 2 4323-8 ####[facility] LABCLIA [id number] [place] [address] ALP [Catalytic activity/Vol] 72 U/L Normal 34-123 [facility] Comment on above: Order Comment: Speci men Type: BLOOD SPECIMENOrdering Facility: [facility] Address: [address] [place] [address] Performed By: #### 2 4323-8 ####[facility] LABCLIA [id number] [place] [address] ALT [Catalytic activity/Vol] 22 U/L Normal 7-38 [facility] Comment on above: Order Comment: Speci men Type: BLOOD SPECIMENOrdering Facility: [facility] Address: [address] [place] [address] Performed By: #### 2 4323-8 ####[facility] LABCLIA [id number] [place] [address] Anion gap [Moles/Vol] 10 mmol/L Normal 9-18 [facility] Comment on above: Order Comment: Speci men Type: BLOOD SPECIMENOrdering Facility: [facility] Address: [address] [place] [address] Performed By: #### 2 4323-8 ####[facility] LABCLIA [id number] [place] [address] AST [Catalytic activity/Vol] 9 U/L Low 13-35 [facility] Comment on above: Order Comment: Speci men Type: BLOOD SPECIMENOrdering Facility: [facility] Address: [address] [place] [address] Performed By: #### 2 4323-8 ####[facility] LABCLIA [id number] [place] [address] Bilirubin [Mass/Vol] 0.2 mg/dL Normal 0.2-1.3 [facility] Comment on above: Order Comment: Speci men Type: BLOOD SPECIMENOrdering Facility: [facility] Address: [address] [place] [address] Performed By: #### 2 4323-8 ####[facility] LABCLIA [id number] [place] [address] Calcium [Mass/Vol] 9.8 mg/dL Normal 8.5-10.2 [facility] Comment on above: Order Comment: Speci men Type: BLOOD SPECIMENOrdering Facility: [facility] Address: [address] [place] [address] Performed By: #### 2 4323-8 ####[facility] LABCLIA [id number] [place] [address] Chloride [Moles/Vol] 107 mmol/L High 97-105 [facility] Comment on above: Order Comment: Speci men Type: BLOOD SPECIMENOrdering Facility: [facility] Address: [address] [place] [address] Performed By: #### 2 4323-8 ####[facility] LABCLIA [id number] [place] [address] CO2 [Moles/Vol] 24 mmol/L Normal 22-30 [facility] Comment on above: Order Comment: Speci men Type: BLOOD SPECIMENOrdering Facility: [facility] Address: [address] [place] [address] Performed By: #### 2 4323-8 ####[facility] LABCLIA [id number] [place] [address] Creatinine [Mass/Vol] 0.80 mg/dL Normal 0.58-0.96 [facility] Comment on above: Order Comment: Speci men Type: BLOOD SPECIMENOrdering Facility: [facility] Address: [facility] [place] [address] Performed By: #### 2 4323-8 ####[facility] LABCLIA [id number] [place] [address] Creatinine and Glomerular filtration rate.predicted panel (S/P/Bld) 94 mL/min/1.73m??? Normal >=60 [facility] Comment on above: Order Comment: Speci men Type: BLOOD SPECIMENOrdering Facility: [facility] Address: [address] [place] [address] Result Comment: Erin mated Glomerular Filtration Rate [...] actual GFR. Performed By: #### 2 4323-8 ####[facility] LABCLIA [id number] [place] [address] Glucose [Mass/Vol] 98 mg/dL Normal 74-99 [facility] Comment on above: Order Comment: Semaj cortés Type: BLOOD SPECIMENOrdering Facility: [facility] Address: [address] [place] [address] Result Comment: The [place] Diabetes Association (ADA) provides guidance for cutoff [...] Standards of Medical Care in Diabetes 2016, [place] Diabetes [employer]. Diabetes Care. 2016.39(Suppl 1). Performed By: #### 2 4323-8 ####[facility] LABCLIA [id number] [place] [address] Potassium [Moles/Vol] 3.6 mmol/L Low 3.7-5.1 [facility] Comment on above: Order Comment: Speci men Type: BLOOD SPECIMENOrdering Facility: [facility] Address: [address] [place] [address] Performed By: #### 2 4323-8 ####[facility] LABCLIA [id number] [place] [address] Protein [Mass/Vol] 7.0 g/dL Normal 6.3-8.0 [facility] Comment on above: Order Comment: Speci men Type: BLOOD SPECIMENOrdering Facility: [facility] Address: [address] [place] [address] Performed By: #### 2 4323-8 ####[facility] LABCLIA [id number] [place] [address] Sodium [Moles/Vol] 141 mmol/L Normal 136-144 [facility] Comment on above: Order Comment: Speci men Type: BLOOD SPECIMENOrdering Facility: [facility] Address: [address] [place] [address] Performed By: #### 2 4323-8 ####[facility] LABCLIA [id number] [place] [address] Urea nitrogen [Mass/Vol] 17 mg/dL Normal 7-21 [facility] Comment on above: Order Comment: Speci men Type: BLOOD SPECIMENOrdering Facility: [facility] Address: [address] [place] [address] Performed By: #### 2 4323-8 ####[facility] LABIA [id number] [place] [address] ESR Westergren method (Bld) [Velocity]on 06-10-2023 ESR (Bld) [Velocity] 28 mm/h High 0-20 [facility] Comment on above: Order Comment: Speci men Type: BLOOD SPECIMENOrdering Facility: [facility] Address: [address] [place] [address] Performed By: #### 4 537-7 ####[facility] LABCLIA [id number] [facility] [id number] [id number] [place] CBC W Auto Differential pane l (Bld)on 06-03-2023 Basophils (Bld) [#/Vol] 0.05 10*3/uL Normal <0.11 [facility] Comment on above: Order Comment: Speci men Type: BLOOD SPECIMENOrdering Facility: [facility] Address: [address] [place] [address] Performed By: #### 5 7021-8 ####[facility] LABCLIA [id number] [place] [address] Basophils/100 WBC (Bld) 0.4 % Normal [facility] Comment on above: Order Comment: Speci men Type: BLOOD SPECIMENOrdering Facility: [facility] Address: [address] [place] [address] Performed By: #### 5 7021-8 ####[facility] LABCLIA [id number] [place] [address] Differential cell count method Nom (Bld) Auto Normal [facility] Comment on above: Order Comment: Speci men Type: BLOOD SPECIMENOrdering Facility: [facility] Address: [address] [place] [address] Performed By: #### 5 7021-8 ####[facility] LABCLIA [id number] [place] [address] Eosinophils (Bld) [#/Vol] 0.14 10*3/uL Normal <0.46 [facility] Comment on above: Order Comment: Speci men Type: BLOOD SPECIMENOrdering Facility: [facility] Address: [address] [place] [address] Performed By: #### 5 7021-8 ####[facility] LABCLIA [id number] [place] [address] Eosinophils/100 WBC (Bld) 1.1 % Normal [facility] Comment on above: Order Comment: Speci men Type: BLOOD SPECIMENOrdering Facility: [facility] Address: [address] [place] [address] Performed By: #### 5 7021-8 ####[facility] LABCLIA [id number] [place] [address] Erythrocyte distribution width (RBC) [Ratio] 14.5 % Normal 11.5-15.0 [facility] Comment on above: Order Comment: Speci men Type: BLOOD SPECIMENOrdering Facility: [facility] Address: [address] [place] [address] Performed By: #### 5 7021-8 ####[facility] LABCLIA [id number] [place] [address] Hematocrit (Bld) [Volume fraction] 40.5 % Normal 36.0-46.0 [facility] Comment on above: Order Comment: Speci men Type: BLOOD SPECIMENOrdering Facility: [facility] Address: [address] [place] [address] Performed By: #### 5 7021-8 ####[facility] LABCLIA [id number] [place] [address] Hemoglobin (Bld) [Mass/Vol] 13.1 g/dL Normal 11.5-15.5 [facility] Comment on above: Order Comment: Speci men Type: BLOOD SPECIMENOrdering Facility: [facility] Address: [address] [place] [address] Performed By: #### 5 7021-8 ####[facility] LABCLIA [id number] [place] [address] Immature granulocytes (Bld) [#/Vol] 0.20 10*3/uL High <0.10 [facility] Comment on above: Order Comment: Speci men Type: BLOOD SPECIMENOrdering Facility: [facility] Address: [address] [place] [address] Performed By: #### 5 7021-8 ####[facility] LABCLIA [id number] [place] [address] Immature granulocytes/100 WBC (Bld) 1.6 % Normal [facility] Comment on above: Order Comment: Speci men Type: BLOOD SPECIMENOrdering Facility: [facility] Address: [address] [place] [address] Performed By: #### 5 7021-8 ####[facility] LABCLIA [id number] [place] [address] Lymphocytes (Bld) [#/Vol] 4.13 10*3/uL High 1.00-4.00 [facility] Comment on above: Order Comment: Speci men Type: BLOOD SPECIMENOrdering Facility: [facility] Address: [address] [place] [address] Performed By: #### 5 7021-8 ####[facility] LABCLIA [id number] [place] [address] Lymphocytes/100 WBC (Bld) 32.1 % Normal [facility] Comment on above: Order Comment: Speci men Type: BLOOD SPECIMENOrdering Facility: [facility] Address: [address] [place] [address] Performed By: #### 5 7021-8 ####[facility] LABCLIA [id number] [place] [address] MCH (RBC) [Entitic mass] 30.8 pg Normal 26.0-34.0 [facility] Comment on above: Order Comment: Speci men Type: BLOOD SPECIMENOrdering Facility: [facility] Address: [address] [place] [address] Performed By: #### 5 7021-8 ####[facility] LABCLIA [id number] [place] [address] MCHC (RBC) [Mass/Vol] 32.3 g/dL Normal 30.5-36.0 [facility] Comment on above: Order Comment: Speci men Type: BLOOD SPECIMENOrdering Facility: [facility] Address: [address] [place] [address] Performed By: #### 5 7021-8 ####[facility] LABCLIA [id number] [place] [address] MCV (RBC) [Entitic vol] 95.1 fL Normal 80.0-100.0 [facility] Comment on above: Order Comment: Speci men Type: BLOOD SPECIMENOrdering Facility: [facility] Address: [address] [place] [address] Performed By: #### 5 7021-8 ####[facility] LABCLIA [id number] [place] [address] Monocytes (Bld) [#/Vol] 0.79 10*3/uL Normal <0.87 [facility] Comment on above: Order Comment: Speci men Type: BLOOD SPECIMENOrdering Facility: [facility] Address: [address] [place] [address] Performed By: #### 5 7021-8 ####[facility] LABCLIA [id number] [place] [address] Monocytes/100 WBC (Bld) 6.1 % Normal [facility] Comment on above: Order Comment: Speci men Type: BLOOD SPECIMENOrdering Facility: [facility] Address: [address] [place] [address] Performed By: #### 5 7021-8 ####[facility] LABCLIA [id number] [place] [address] Neutrophils (Bld) [#/Vol] 7.56 10*3/uL High 1.45-7.50 [facility] Comment on above: Order Comment: Speci men Type: BLOOD SPECIMENOrdering Facility: [facility] Address: [address] [place] [address] Performed By: #### 5 7021-8 ####[facility] LABCLIA [id number] [place] [address] Neutrophils/100 WBC (Bld) 58.7 % Normal [facility] Comment on above: Order Comment: Speci men Type: BLOOD SPECIMENOrdering Facility: [facility] Address: [address] [place] [address] Performed By: #### 5 7021-8 ####[facility] LABCLIA [id number] [place] [address] Nucleated RBC (Bld) [#/Vol] 10*3/uL Normal <0.01 [facility] Comment on above: Order Comment: Speci men Type: BLOOD SPECIMENOrdering Facility: [facility] Address: [address] [place] [address] Performed By: #### 5 7021-8 ####[facility] LABCLIA [id number] [place] [address] Nucleated RBC/100 WBC (Bld) [Ratio] 0.0 /100 WBC Normal [facility] Comment on above: Order Comment: Speci men Type: BLOOD SPECIMENOrdering Facility: [facility] Address: [address] [place] [address] Performed By: #### 5 7021-8 ####[facility] LABCLIA [id number] [place] [address] Platelet mean volume (Bld) [Entitic vol] 9.7 fL Normal 9.0-12.7 [facility] Comment on above: Order Comment: Speci men Type: BLOOD SPECIMENOrdering Facility: [facility] Address: [address] [place] [address] Performed By: #### 5 7021-8 ####[facility] LABCLIA [id number] [place] [address] Platelets (Bld) [#/Vol] 261 10*3/uL Normal 150-400 [facility] Comment on above: Order Comment: Speci men Type: BLOOD SPECIMENOrdering Facility: [facility] Address: [address] [place] [address] Performed By: #### 5 7021-8 ####[facility] LABCLIA [id number] [place] [address] RBC (Bld) [#/Vol] 4.26 10*6/uL Normal 3.90-5.20 [facility] Comment on above: Order Comment: Speci men Type: BLOOD SPECIMENOrdering Facility: [facility] Address: [address] [place] [address] Performed By: #### 5 7021-8 ####[facility] LABCLIA [id number] [place] [address] WBC (Bld) [#/Vol] 12.87 10*3/uL High 3.70-11.00 [facility] Comment on above: Order Comment: Speci men Type: BLOOD SPECIMENOrdering Facility: [facility] Address: [address] [place] [address] Performed By: #### 5 7021-8 ####[facility] LABIA [id number] [place] [address] Comprehensive metabolic 2000 panelon 06-03-2023 Albumin [Mass/Vol] 4.0 g/dL Normal 3.9-4.9 [facility] Comment on above: Order Comment: Speci men Type: BLOOD SPECIMENOrdering Facility: [facility] Address: [address] [place] [address] Performed By: #### 2 4323-8 ####[facility] LABCLIA [id number] [place] [address] ALP [Catalytic activity/Vol] 73 U/L Normal 34-123 [facility] Comment on above: Order Comment: Speci men Type: BLOOD SPECIMENOrdering Facility: [facility] Address: [address] [place] [address] Performed By: #### 2 4323-8 ####[facility] LABCLIA [id number] [place] [address] ALT [Catalytic activity/Vol] 21 U/L Normal 7-38 [facility] Comment on above: Order Comment: Speci men Type: BLOOD SPECIMENOrdering Facility: [facility] Address: [address] [place] [address] Performed By: #### 2 4323-8 ####[facility] LABCLIA [id number] [place] [address] Anion gap [Moles/Vol] 10 mmol/L Normal 9-18 [facility] Comment on above: Order Comment: Speci men Type: BLOOD SPECIMENOrdering Facility: [facility] Address: [address] [place] [address] Performed By: #### 2 4323-8 ####[facility] LABCLIA [id number] [place] [address] AST [Catalytic activity/Vol] 10 U/L Low 13-35 [facility] Comment on above: Order Comment: Speci men Type: BLOOD SPECIMENOrdering Facility: [facility] Address: [address] [place] [address] Performed By: #### 2 4323-8 ####[facility] LABCLIA [id number] [place] [address] Bilirubin [Mass/Vol] 0.2 mg/dL Normal 0.2-1.3 [facility] Comment on above: Order Comment: Speci men Type: BLOOD SPECIMENOrdering Facility: [facility] Address: [address] [place] [address] Performed By: #### 2 4323-8 ####[facility] LABCLIA [id number] [place] [address] Calcium [Mass/Vol] 9.6 mg/dL Normal 8.5-10.2 [facility] Comment on above: Order Comment: Speci men Type: BLOOD SPECIMENOrdering Facility: [facility] Address: [address] [place] [address] Performed By: #### 2 4323-8 ####[facility] LABCLIA [id number] [place] [address] Chloride [Moles/Vol] 108 mmol/L High 97-105 [facility] Comment on above: Order Comment: Speci men Type: BLOOD SPECIMENOrdering Facility: [facility] Address: [address] [place] [address] Performed By: #### 2 4323-8 ####[facility] LABCLIA [id number] [place] [address] CO2 [Moles/Vol] 24 mmol/L Normal 22-30 [facility] Comment on above: Order Comment: Speci men Type: BLOOD SPECIMENOrdering Facility: [facility] Address: [address] [place] [address] Performed By: #### 2 4323-8 ####[facility] LABCLIA [id number] [place] [address] Creatinine [Mass/Vol] 0.70 mg/dL Normal 0.58-0.96 [facility] Comment on above: Order Comment: Speci men Type: BLOOD SPECIMENOrdering Facility: [facility] Address: [address] [place] [address] Performed By: #### 2 4323-8 ####[facility] LABCLIA [id number] [place] [address] Creatinine and Glomerular filtration rate.predicted panel (S/P/Bld) 111 mL/min/1.73m??? Normal >=60 [facility] Comment on above: Order Comment: Speci men Type: BLOOD SPECIMENOrdering Facility: [facility] Address: [address] [place] [address] Result Comment: Erin mated Glomerular Filtration Rate [...] actual GFR. Performed By: #### 2 4323-8 ####[facility] LABCLIA [id number] [place] [address] Glucose [Mass/Vol] 106 mg/dL High 74-99 [facility] Comment on above: Order Comment: Speci men Type: BLOOD SPECIMENOrdering Facility: [facility] Address: [address] [place] [address] Result Comment: The [place] Diabetes Association (ADA) provides guidance for cutoff [...] Standards of Medical Care in Diabetes 2016, [place] Diabetes Association. Diabetes Care. 2016.39(Suppl 1). Performed By: #### 2 4323-8 ####[facility] LABCLIA [id number] [place] [address] Potassium [Moles/Vol] 4.0 mmol/L Normal 3.7-5.1 [facility] Comment on above: Order Comment: Speci men Type: BLOOD SPECIMENOrdering Facility: [facility] Address: [address] [place] [address] Performed By: #### 2 4323-8 ####[facility] LABCLIA [id number] [place] [address] Protein [Mass/Vol] 6.8 g/dL Normal 6.3-8.0 [facility] Comment on above: Order Comment: Speci men Type: BLOOD SPECIMENOrdering Facility: [facility] Address: [address] [place] [address] Performed By: #### 2 4323-8 ####[facility] LABCLIA [id number] [place] [address] Sodium [Moles/Vol] 142 mmol/L Normal 136-144 [facility] Comment on above: Order Comment: Speci men Type: BLOOD SPECIMENOrdering Facility: [facility] Address: [place] [address] Performed By: #### 2 4323-8 ####[facility] LABCLIA [id number] [place] [address] Urea nitrogen [Mass/Vol] 12 mg/dL Normal 7-21 [facility] Comment on above: Order Comment: Speci men Type: BLOOD SPECIMENOrdering Facility: [facility] Address: [address] [place] [address] Performed By: #### 2 4323-8 ####[facility] LABCLIA [id number] [place] [address] ESR Westergren method (Bld) [Velocity]on 06-03-2023 ESR (Bld) [Velocity] 35 mm/h High 0-20 [facility] Comment on above: Order Comment: Speci men Type: BLOOD SPECIMENOrdering Facility: [facility] Address: [address] [place] [address] Performed By: #### 4 537-7 ####[facility] LABCLIA [id number] [place] [id number] [place] Ferritin SerPl-mCncon 2023 Ferritin [Mass/Vol] 23.4 ng/mL Normal 14.7-205.1 [facility] Comment on above: Order Comment: Speci men Type: BLOOD SPECIMENOrdering Facility: [facility] Address: [address] [place] [address] Performed By: #### 5 0190-8, 2132-9, 2276-4, 2284-8 ####[facility] LABCLIA [id number] [place] [id number] [place] Folate SerPl-mCncon 06-03-19 Folate [Mass/Vol] 8.2 ng/mL Normal >4.7 [facility] Comment on above: Order Comment: Speci men Type: BLOOD SPECIMENOrdering Facility: [facility] Address: [address] [place] [address] Performed By: #### 5 0190-8, 9, 4, 2283-12 ####[facility] LABCLIA [id number] [place] [address] [place] Iron and Iron binding capaci ty panelon 06-03-2023 Iron [Mass/Vol] 67 ug/dL Normal 41-186 [facility] Comment on above: Order Comment: Speci men Type: BLOOD SPECIMENOrdering Facility: [facility] Address: [address] [place] [address] Performed By: #### 5 0190-8, 9, 2275-08, 2283-12 ####[facility] LABCLIA [id number] [place] [address] [place] Iron binding capacity [Mass/Vol] 395 ug/dL High 232-386 [facility] Comment on above: Order Comment: Speci men Type: BLOOD SPECIMENOrdering Facility: [facility] Address: [address] [place] [address] Performed By: #### 5 0190-8, 9, 2275-08, 2283-12 ####[facility] LABCLIA [id number] [place] [address] [place] Iron/TIBC [Molar ratio] 17.0 % Normal 15.0-57.0 [facility] Comment on above: Order Comment: Speci men Type: BLOOD SPECIMENOrdering Facility: [facility] Address: [address] [place] [address] Performed By: #### 5 0190-8, 9, 2275-08, 2283-12 ####[facility] LABCLIA [id number] [place] [address] [place] Vit B12 SerPl-ncon 06-03-2 024 Cobalamin (Vitamin B12) [Mass/Vol] 428 pg/mL Normal 232-1245 [facility] Comment on above: Order Comment: Speci men Type: BLOOD SPECIMENOrdering Facility: [facility] Address: [address] [place] [id number] Performed By: #### 5 0190-8, 2132-9, 2276-4, 2284-8 ####[facility] LABCLIA [id number] [facility] [id number] [id number] [place] XR CERVICAL SPINE COMPLETE 4 -5 VIEWSon [...] BY: Alden Thompson MD Normal Not Available CBC AUTO DIFFon 09-24-2022 BASO # 0.1 103/ul Normal 0.0-0.1 [facility] Comment on above: Performed By: #### U AMIC #### [facility] [address] [place] [address] Dr. Manda York Basophils/100 WBC (Bld) 0.6 % Normal 0.2-2.0 [facility] Comment on above: Performed By: #### U AMIC #### [facility] [address] [place] [address] Dr. Manda York EO # 0.1 103/ul Normal 0.0-0.7 [facility] Comment on above: Performed By: #### U AMIC #### [facility] [address] [place] [address] Dr. Manda York Eosinophils/100 WBC (Bld) 0.6 % Critically low 0.9-7.0 [facility] Comment on above: Performed By: #### U AMIC #### [facility] [address] [place] [address] Dr. Manda York Erythrocyte distribution width (RBC) [Ratio] 14.6 % Normal 11.0-15.0 [facility] Comment on above: Performed By: #### U AMIC #### [facility] [address] [place] [address] Dr. Manda York Hematocrit (Bld) [Volume fraction] 43.4 % Normal 36.0-48.0 [facility] Comment on above: Performed By: #### U AMIC #### [facility] [address] [place] [address] Dr. Manda York Hemoglobin (Bld) [Mass/Vol] 13.7 g/dL Normal 12.0-16.0 [facility] Comment on above: Performed By: #### U AMIC #### [facility] [address] [place] [address] Dr. Manda York IG # 0.12 10e3/ul Critically high 0.00-0.03 [facility] Comment on above: Performed By: #### U AMIC #### [facility] [address] [place] [address] [address] Manda York IG % 0.8 % Critically high 0.0-0.5 [facility] Comment on above: Performed By: #### U AMIC #### [facility] [address] [place] [address] [address] Manda York LYMPH # 2.6 103/ul Normal 1.2-3.8 [facility] Comment on above: Performed By: #### U AMIC #### [facility] [address] [place] [address] Dr. Manda York Lymphocytes/100 WBC (Bld) 18.3 % Critically low 20.5-60.0 [facility] Comment on above: Performed By: #### U AMIC #### [facility] [address] [place] [address] Dr. Manda York MANUAL DIFF REQ NO Normal [facility] Comment on above: Performed By: #### U AMIC #### [facility] [address] [place] [address] Dr. Manda York MCH (RBC) [Entitic mass] 29.0 pg Normal 26.7-34.0 [facility] Comment on above: Performed By: #### U AMIC #### [facility] [address] [place] [address] Dr. Manda York MCHC (RBC) [Mass/Vol] 31.6 g/dL Normal 29.9-35.2 [facility] Comment on above: Performed By: #### U AMIC #### [facility] [address] [place] [address] Dr. Manda York MCV (RBC) [Entitic vol] 91.8 fL Normal 81.0-99.0 [facility] Comment on above: Performed By: #### U AMIC #### [facility] [address] [place] [address] Dr. Manda York MONO # 0.7 103/ul Normal 0.3-0.8 [facility] Comment on above: Performed By: #### U AMIC #### [facility] [address] [place] [address] Dr. Manda York Monocytes/100 WBC (Bld) 5.1 % Normal 1.7-12.0 [facility] Comment on above: Performed By: #### U AMIC #### [facility] [address] [place] [address] Dr. Manda York NEUT # 10.6 103/ul Critically high 1.4-6.5 [facility] Comment on above: Performed By: #### U AMIC #### [facility] [address] [place] [address] Dr. Manda York Neutrophils/100 WBC (Bld) 74.6 % Normal 43.0-75.0 [facility] Comment on above: Performed By: #### U AMIC #### [facility] [address] [place] [address] Dr. Manda York Platelet mean volume (Bld) [Entitic vol] 9.4 fL Critically low 9.5-13.5 [facility] Comment on above: Performed By: #### U AMIC #### [facility] [address] [place] [address] Dr. Manda York PLT 307 103/ul Normal 150-450 [facility] Comment on above: Performed By: #### U AMIC #### [facility] [address] [place] [address] Dr. Manda York RBC 4.73 106/ul Normal 4.20-5.40 [facility] Comment on above: Performed By: #### U AMIC #### [facility] [address] [place] [address] Dr. Manda York WBC 14.2 103/ul Critically high 4.0-11.0 [facility] Comment on above: Performed By: #### U AMIC #### [facility] [address] [place] [address] Dr. Manda York FREE T4on 09-24-2022 Free T4 [Mass/Vol] 1.31 ng/dL Normal 0.76-1.46 [facility] Comment on above: Performed By: #### F T4 #### [facility] [address] [place] [address] Dr. Manda York GLYCOHEMOGLOBIN A1Con 2022 ADA RECOMMENDATION SEE BELOW Normal [facility] Comment on above: Result Comment: ADA RECOMMENDED LIMIT 4.0 - 6.0 ADA THERAPEUTIC TARGET < 7.0 ACTION SUGGESTED > 7.0 Performed By: #### A 1C #### [facility] [address] [place] [address] Dr. Manda York Glucose [Mass/Vol] 120 mg/dL Normal [facility] Comment on above: Performed By: #### A 1C #### [facility] [address] [place] [address] Dr. Manda York HbA1c (Bld) [Mass fraction] 5.8 % Normal 4.5-6.2 [facility] Comment on above: Performed By: #### A 1C #### [facility] [address] [place] [address] Dr. Manda York PREG QUANT HCGon 09-24-2022 HCG QUANT <1 Normal [facility] Comment on above: Performed By: #### F T4 #### [facility] [address] [place] [address] Dr. Manda York HCG RANGE SEE BELOW Normal [facility] Comment on above: Result Comment: 5-50 0.2-1 WEEK 50-500 1-2 WEEKS 100-5,000 2-3 WEEKS 500-10,000 3-4 WEEKS 1,000-50,000 4-5 WEEKS 10,000-100,000 5-6 WEEKS 15,000-200,000 6-8 WEEKS 10,000-100,000 2-3 MONTHS Performed By: #### F T4 #### [facility] [address] [place] [address] Dr. Manda York PROTIMEon 09-24-2022 INR Coag (PPP) [Relative time] {INR} Normal [facility] Comment on above: Performed By: #### F T4 #### [facility] [address] [place] [address] Dr. Manda York INR GUIDELINES SEE BELOW Normal [facility] Comment on above: Result Comment: SHERRY RED INR: 2.0 - 3.0 CONDITIONS NOT LISTED BELOW 2.5 - 3.5 FOR PROSTHETIC HEART VALVE REPLACEMENT 2.5 - 3.5 RECURRENT THROMBOSIS Performed By: #### F T4 #### [facility] [address] [place] [address] Dr. Manda York PT Coag (PPP) [Time] 9.6 s Normal 9.0-11.6 [facility] Comment on above: Performed By: #### F T4 #### [facility] [address] [place] [address] Dr. Manda York PTTon 09-24-2022 aPTT Coag (Bld) [Time] 28.2 s Normal 22.3-36.2 [facility] Comment on above: Performed By: #### F T4 #### [facility] [address] [place] [address] Dr. Manda York TSHon 09-24-2022 TSH 0.300 uIU/mL Critically low 0.358-3.740 [facility] Comment on above: Performed By: #### F T4 #### [facility] [address] [place] [address] Dr. Manda York US PELVIS TRANSVAGon 023 [...] left ovarian cyst Electronically authenticated by: AURORA SHAKIH Date: 2022-09-24 17:50 Normal [facility] PAP ACOG PANEL 2: 30 to 65on 09-18-2022 . . Normal [facility] Comment on above: Result Comment: Perf ormed at: WB Performed By: #### F T4 #### [facility] [address] [place] [address] [address] Manda York Age Gdln ACOG Testing 30-65 Normal [facility] Comment on above: Performed By: #### F T4 #### [facility] [address] [place] [address] [address] Manda York DIAGNOSIS: Comment Normal [facility] Comment on above: Result Comment: NEGA TIVE FOR INTRAEPITHELIAL LESION OR MALIGNANCY. Performed at: WB Performed By: #### F T4 #### [facility] [address] [place] [address] [address] Manda York HPV Aptima Negative Normal Negative [facility] Comment on above: Result Comment: This nucleic acid amplification test detects fourteen high-risk HPV types (16,18,31,33,35,39,45,51,52,56,58,59,66,68) without differentiation. Performed at: =G Performed By: #### F T4 #### [facility] [address] [place] [address] [address] Manda York HPV Genotype Reflex Comment Normal [facility] Comment on above: Result Comment: Crit eria not met, HPV Genotype not performed. Performed at: WB Performed By: #### F T4 #### [facility] [address] [place] [address] [address] Manda York Methodology: Comment Normal [facility] Comment on above: Result Comment: This liquid based ThinPrep(R) pap test was screened with the use of an image guided system. Performed at: WB Performed By: #### F T4 #### [facility] [address] [place] [address] [address] Manda York Note: Comment Normal [facility] Comment on above: Result [...] WB Performed By: #### F T4 #### [facility] [address] [place], [place] [address] Dr. Manda York Performed by: Comment Normal [facility] Comment on above: Result Comment: Lorena Peters, Unscrambler (ASCP) Performed at: WB Performed By: #### F T4 #### [facility] [address] [place], [place] [address] Dr. Manda York Specimen adequacy: Comment Normal [facility] Comment on above: Result Comment: Sati sfactory for evaluation. Endocervical and/or squamous metaplastic cells (endocervical component) are present. Performed at: WB Performed By: #### F T4 #### [facility] [address] [place], [place] [address] Dr. Manda York Cytology Cervical or vaginal smear or scraping studyOrdered By: Hazel Torres on 09-10-2022 [facility] MG MAMM SCREEN 3D MARK CADon 09-01-2022 MG MAMM SCREEN 3D MARK CAD Patient: ARIADNA HALEY Exam Date: 09/01/2022 : 1980 Gender:F Ordering : DR MANUEL FERRIS . Admission #: [id number] Family : Order #: [id number] CLICK HERE TO VIEW EXAM RADIOLOGY REPORT [...] stomach cancer at age 56. LOCATION: [facility] BREAST COMPOSITION: Scattered areas fibroglandular density. [...] Yusuf M.D. on 09/02/2022 at 12:32 Normal [facility] MRI KNEE RT WO CONon 04-01- 022 [...] limits. 5. Moderate-sized hemarthrosis. Electronically authenticated by: MANUEL GOMEZ Date: 2022-04-01 08:24 Normal [facility] PNEUMOCOCCAL IGG ABS, 23 SER OTYPESon 03-21-2022 Pneumococcal Interpretation See Note [facility] S. pneumoniae 1 IgG (S) [Mass/Vol] 0.27 ug/mL [facility] S. pneumoniae 12 IgG (S) [Mass/Vol] 0.08 ug/mL [facility] S. pneumoniae 14 IgG (S) [Mass/Vol] 0.19 ug/mL [facility] S. pneumoniae 17 IgG (S) [Mass/Vol] 1.72 ug/mL [facility] S. pneumoniae 19 IgG (S) [Mass/Vol] 1.52 ug/mL [facility] S. pneumoniae 2 IgG (S) [Mass/Vol] 0.44 ug/mL [facility] S. pneumoniae 20 IgG (S) [Mass/Vol] 1.53 ug/mL [facility] S. pneumoniae 22 IgG (S) [Mass/Vol] 0.99 ug/mL [facility] S. pneumoniae 23 IgG (S) [Mass/Vol] 0.14 ug/mL [facility] S. pneumoniae 3 IgG (S) [Mass/Vol] 0.36 ug/mL [facility] S. pneumoniae 34 IgG (S) [Mass/Vol] 5.77 ug/mL [facility] S. pneumoniae 4 IgG (S) [Mass/Vol] 0.06 ug/mL [facility] S. pneumoniae 43 IgG (S) [Mass/Vol] 0.93 ug/mL [facility] S. pneumoniae 5 IgG (S) [Mass/Vol] 0.89 ug/mL [facility] S. pneumoniae 8 IgG (S) [Mass/Vol] 0.58 ug/mL [facility] S. pneumoniae 9 IgG (S) [Mass/Vol] 0.4 ug/mL [facility] S. pneumoniae Lao type 15B IgG (S) [Mass/Vol] 8.27 ug/mL [facility] S. pneumoniae Lao type 18C IgG (S) [Mass/Vol] 0.39 ug/mL [facility] S. pneumoniae Lao type 19A IgG (S) [Mass/Vol] 17.72 ug/mL [facility] S. pneumoniae Lao type 33F IgG (S) [Mass/Vol] 3.04 ug/mL [facility] S. pneumoniae Lao type 6B IgG (S) [Mass/Vol] 0.82 ug/mL [facility] S. pneumoniae Lao type 7F IgG (S) [Mass/Vol] 0.34 ug/mL [facility] S. pneumoniae Lao type 9V IgG (S) [Mass/Vol] 0.78 ug/mL [facility] XR KNEE RT 4V or >on [...] KRISTINA GARRETT Date: 2022-03-21 16:47 Normal [facility] DIPHTHER/TETANUS ABon 2021 C. diphtheriae IgG Qn (S) 0.1 IU/mL [facility] C. tetani toxoid IgG IA Qn 1 IU/mL [facility] IGA BLDon 03-18-2022 IgA [Mass/Vol] 182 mg/dL 70 - 400 mg/dL [facility] IGE BLDon 03-18-2022 IgE Qn 12.3 kU/l <114.0 kU/l [facility] IGGon 03-18-2022 IgG [Mass/Vol] 618 mg/dL Low 700 - 1,600 mg/dL [facility] IGMon 03-18-2022 IgM [Mass/Vol] 514 mg/dL High 40 - 230 mg/dL [facility] Immunodeficiency panel FC (B ld)on 03-18-2022 CD3 cells (Bld) [#/Vol] 2841 cells/uL High 958 - 2,388 cells/uL [facility] [facility] CD3 cells/100 cells (Bld) 81 % 60 - 89 % [facility] CD3+CD4+ (T4 helper) cells (Bld) [#/Vol] 1621 cells/uL 533 - 1,674 cells/uL [facility] CD3+CD4+ (T4 helper) cells/100 cells (Bld) 46 % 34 - 61 % [facility] CD3+CD4+ (T4 helper) cells/CD3+CD8+ (T8 suppressor cells) cells (Bld) [# ratio] 1.55 % 1.10 - 3.25 [facility] CD3+CD8+ (T8 suppressor cells) cells (Bld) [#/Vol] 1049 cells/uL High 175 - 958 cells/uL [facility] CD3+CD8+ (T8 suppressor cells) cells/100 cells (Bld) 30 % 10 - 41 % [facility] CD3-CD16+CD56+ (Natural killer) cells (Bld) [#/Vol] 193 cells/uL 102 - 565 cells/uL [facility] CD3-CD16+CD56+ (Natural killer) cells/100 cells (Bld) 5 % 5 - 25 % [facility] CD3-CD19+ cells (Bld) [#/Vol] 475 cells/uL 75 - 660 cells/uL [facility] CD3-CD19+ cells/100 cells (Bld) 13 % 5 - 22 % [facility] CBC W Auto Differential pane l (Bld)on 03-17-2022 Basophils (Bld) [#/Vol] 0.07 10*3/uL <0.11 k/uL [facility] Basophils/100 WBC (Bld) 0.6 % [facility] Differential cell count method Nom (Bld) Auto [facility] Eosinophils (Bld) [#/Vol] 0.18 10*3/uL <0.46 k/uL [facility] Eosinophils/100 WBC (Bld) 1.6 % [facility] Erythrocyte distribution width (RBC) [Ratio] 14.6 % 11.5 - 15.0 % [facility] Hematocrit (Bld) [Volume fraction] 40.5 % 36.0 - 46.0 % [facility] Hemoglobin (Bld) [Mass/Vol] 13.0 g/dL 11.5 - 15.5 g/dL [facility] Immature granulocytes (Bld) [#/Vol] 0.06 10*3/uL <0.10 k/uL [facility] Immature granulocytes/100 WBC (Bld) 0.5 % [facility] Lymphocytes (Bld) [#/Vol] 2.97 10*3/uL 1.00 - 4.00 k/uL [facility] Lymphocytes/100 WBC (Bld) 26.9 % [facility] MCH (RBC) [Entitic mass] 28.4 pg 26.0 - 34.0 pg [facility] MCHC (RBC) [Mass/Vol] 32.1 g/dL 30.5 - 36.0 g/dL [facility] MCV (RBC) [Entitic vol] 88.4 fL 80.0 - 100.0 fL [facility] Monocytes (Bld) [#/Vol] 0.79 10*3/uL <0.87 k/uL [facility] Monocytes/100 WBC (Bld) 7.2 % [facility] Neutrophils (Bld) [#/Vol] 6.97 10*3/uL 1.45 - 7.50 k/uL [facility] Neutrophils/100 WBC (Bld) 63.2 % [facility] Nucleated RBC (Bld) [#/Vol] <0.01 k/uL [facility] Nucleated RBC/100 WBC (Bld) [Ratio] 0.0 /100 WBC [facility] Platelet mean volume (Bld) [Entitic vol] 9.9 fL 9.0 - 12.7 fL [facility] Platelets (Bld) [#/Vol] 314 10*3/uL 150 - 400 k/uL [facility] RBC (Bld) [#/Vol] 4.58 10*6/uL 3.90 - 5.2 0 m/uL [facility] WBC (Bld) [#/Vol] 11.04 10*3/uL High 3.70 - 11 .00 k/uL [facility] ECHOCARDIO M/2D COMPLETEon 1 ECHOCARDIO M/2D COMPLETE Patient: ARIADNA HALEYKimberly Exam Date: 03/12/2022 : 1980 Gender:F Ordering : DR MANUEL FERRIS . Admission #: [id number] Family : Order #: [id number] CLICK HERE TO VIEW EXAM ECHOCARDIOGRAM REPORT [...] M.D. on 03/16/2022 at 16:47 Normal [facility] INSULINon 03-11-2022 Insulin 17.8 uIU/mL Normal 2.6-24.9 [facility] Comment on above: Performed By: #### C BC #### [facility] [address] [place] [address] Dr. Manda York CBC AUTO DIFFon 03-09-2022 BASO # 0.1 103/ul Normal 0.0-0.1 [facility] Comment on above: Performed By: #### C BC #### [facility] [address] [address] [address] Manda York Basophils/100 WBC (Bld) 0.4 % Normal 0.2-2.0 [facility] Comment on above: Performed By: #### C BC #### [facility] [address] [place] [address] Dr. Manda York EO # 0.2 103/ul Normal 0.0-0.7 [facility] Comment on above: Performed By: #### C BC #### [facility] [address] [place] [address] Dr. Manda York Eosinophils/100 WBC (Bld) 1.2 % Normal 0.9-7.0 [facility] Comment on above: Performed By: #### C BC #### [facility] [address] [place] [address] Dr. Manda York Erythrocyte distribution width (RBC) [Ratio] 14.6 % Normal 11.0-15.0 [facility] Comment on above: Performed By: #### C BC #### [facility] [address] [place] [address] Dr. Manda York Hematocrit (Bld) [Volume fraction] 39.2 % Normal 36.0-48.0 [facility] Comment on above: Performed By: #### C BC #### [facility] [address] [place] [address] Dr. Manda York Hemoglobin (Bld) [Mass/Vol] 12.7 g/dL Normal 12.0-16.0 [facility] Comment on above: Performed By: #### C BC #### [facility] [address] [place] [address] Dr. Manda York IG # 0.06 10e3/ul Critically high 0.00-0.03 [facility] Comment on above: Performed By: #### C BC #### [facility] [address] [place] [address] Dr. Manda York IG % 0.5 % Normal 0.0-0.5 [facility] Comment on above: Performed By: #### C BC #### [facility] [address] [place] [address] Dr. Manda York LYMPH # 3.7 103/ul Normal 1.2-3.8 [facility] Comment on above: Performed By: #### C BC #### [facility] [address] [place] [address] Dr. Manda York Lymphocytes/100 WBC (Bld) 31.0 % Normal 20.5-60.0 [facility] Comment on above: Performed By: #### C BC #### [facility] [address] [place] [address] Dr. Manda York MANUAL DIFF REQ NO Normal [facility] Comment on above: Performed By: #### C BC #### [facility] [address] [place] [address] Dr. Manda York MCH (RBC) [Entitic mass] 28.9 pg Normal 26.7-34.0 [facility] Comment on above: Performed By: #### C BC #### [facility] [address] [place] [address] Dr. Manda York MCHC (RBC) [Mass/Vol] 32.4 g/dL Normal 29.9-35.2 [facility] Comment on above: Performed By: #### C BC #### [facility] [address] [place] [address] Dr. Manda York MCV (RBC) [Entitic vol] 89.1 fL Normal 81.0-99.0 [facility] Comment on above: Performed By: #### C BC #### [facility] [address] [place] [address] Dr. Manda York MONO # 0.7 103/ul Normal 0.3-0.8 [facility] Comment on above: Performed By: #### C BC #### [facility] [address] [place] [address] Dr. Manda York Monocytes/100 WBC (Bld) 5.8 % Normal 1.7-12.0 [facility] Comment on above: Performed By: #### C BC #### [facility] [address] [place] [address] Dr. Manda York NEUT # 7.3 103/ul Critically high 1.4-6.5 [facility] Comment on above: Performed By: #### C BC #### [facility] [address] [place] [address] Dr. Manda York Neutrophils/100 WBC (Bld) 61.1 % Normal 43.0-75.0 [facility] Comment on above: Performed By: #### C BC #### [facility] [address] [place] [address] Dr. Manda York Platelet mean volume (Bld) [Entitic vol] 9.7 fL Normal 9.5-13.5 [facility] Comment on above: Performed By: #### C BC #### [facility] [address] [address] [address] Manda York PLT 297 103/ul Normal 150-450 [facility] Comment on above: Performed By: #### C BC #### [facility] [address] [place] [address] Dr. Manda York RBC 4.40 106/ul Normal 4.20-5.40 [facility] Comment on above: Performed By: #### C BC #### [facility] [address] [place] [address] Dr. Manda York WBC 12.0 103/ul Critically high 4.0-11.0 [facility] Comment on above: Performed By: #### C BC #### [facility] [address] [place] [address] Dr. Manda York FREE THYROXINE INDEX T7on FTI 3.81 Normal 1.30-4.50 [facility] Comment on above: Performed By: #### U AMIC #### [facility] [address] [place] [address] Dr. Manda York T3U 34.0 % Normal 30.0-39.0 [facility] Comment on above: Performed By: #### U AMIC #### [facility] [address] [place] [address] Dr. Manda York T4 [Mass/Vol] 11.20 ug/dL Normal 4.80-13.90 [facility] Comment on above: Performed By: #### U AMIC #### [facility] [address] [place] [address] Dr. Manda York GLYCOHEMOGLOBIN A1Con 2021 ADA RECOMMENDATION SEE BELOW Normal [facility] Comment on above: Result Comment: ADA RECOMMENDED LIMIT 4.0 - 6.0 ADA THERAPEUTIC TARGET < 7.0 ACTION SUGGESTED > 7.0 Performed By: #### S LUIGI MELO #### [facility] [address] [address] [address] Manda York Glucose [Mass/Vol] 117 mg/dL Normal [facility] Comment on above: Performed By: #### S LUIGI MELO #### [facility] [address] [place] [address] Dr. Manda York HbA1c (Bld) [Mass fraction] 5.7 % Normal 4.5-6.2 [facility] Comment on above: Performed By: #### S LUIGI MELO #### [facility] [address] [place] [address] Dr. Manda York IRONon 03-09-2022 Iron [Mass/Vol] 61.0 ug/dL Normal 50.0-170.0 [facility] Comment on above: Performed By: #### C BC #### [facility] [address] [place] [address] Dr. Manda York LIPID PROFILEon 03-09-2022 CHOL-HDL RATIO NORM SEE BELOW Normal [facility] Comment on above: Result Comment: 3.3 - 4.4 LOW RISK 4.4 - 7.1 AVERAGE RISK 7.1 - 11.0 MODERATE RISK >11.0 HIGH RISK Performed By: #### U AMIC #### [facility] [address] [address] [address] Manda York Cholesterol [Mass/Vol] 260 mg/dL Critically high <=200 [facility] Comment on above: Performed By: #### U AMIC #### [facility] [address] [place] [address] Dr. Manda York Cholesterol in HDL [Mass/Vol] 38 mg/dL Critically low 40-60 [facility] Comment on above: Performed By: #### U AMIC #### [facility] [address] [address] [address] Manda York Cholesterol in LDL [Mass/Vol] 170.8 mg/dL Normal [facility] Comment on above: Performed By: #### U AMIC #### [facility] [address] [address] [address] Manda York Cholesterol.total/Chol esterol in HDL [Mass ratio] 6.8 {ratio} Normal [facility] Comment on above: Performed By: #### U AMIC #### [facility] [address] [address] [address] Manda York HDL NORMAL > or = 60 mg/dl - LO W CARDIOVASCULAR RISK <40 mg/dl - HIGH CARDIOVASCULAR RISK Normal [facility] Comment on above: Performed By: #### U AMIC #### [facility] [address] [address] [address] Manda York LDL CALC NORMAL SEE BELOW Normal [facility] Comment on above: Result Comment: <100 mg/dl OPTIMAL 100 - 129 mg/dl NEAR OR ABOVE OPTIMAL 130 - 159 mg/dl BORDERLINE HIGH 160 - 189 mg/dl HIGH >190 mg/dl VERY HIGH Performed By: #### U AMIC #### [facility] [address] [address] [address] Manda York Triglyceride [Mass/Vol] 256 mg/dL Critically high <=150 [facility] Comment on above: Performed By: #### U AMIC #### [facility] [address] [address] [address] Manda York VLDL CALC 51.2 mg/dL Normal [facility] Comment on above: Performed By: #### U AMIC #### [facility] [address] [address] [address] Manda York PROF 14(COMP METB)on 022 Albumin [Mass/Vol] 3.8 g/dL Normal 3.4-5.0 [facility] Comment on above: Performed By: #### U AMIC #### [facility] [address] [address] [address] Manda York Albumin/Globulin [Mass ratio] 1.0 {ratio} Normal [facility] Comment on above: Performed By: #### U AMIC #### [facility] [address] [address] [address] Manda York ALP [Catalytic activity/Vol] 66 U/L Normal 46-116 [facility] Comment on above: Performed By: #### U AMIC #### [facility] [address] [address] [address] Manda York ALT [Catalytic activity/Vol] 27 U/L Normal 14-59 [facility] Comment on above: Performed By: #### U AMIC #### [facility] [address] [address] [address] Manda York Anion gap [Moles/Vol] 11.8 mmol/L Normal [facility] Comment on above: Performed By: #### U AMIC #### [facility] [address] [address] [address] Manda York AST [Catalytic activity/Vol] 9 U/L Critically low 15-37 [facility] Comment on above: Performed By: #### U AMIC #### [facility] [address] [address] [address] Manda York Bilirubin [Mass/Vol] 0.2 mg/dL Normal 0.2-1.0 [facility] Comment on above: Performed By: #### U AMIC #### [facility] [address] [address] [address] Manda York Calcium [Mass/Vol] 9.1 mg/dL Normal 8.5-10.1 [facility] Comment on above: Performed By: #### U AMIC #### [facility] [address] [address] [address] Manda York Chloride [Moles/Vol] 101 mmol/L Normal 98-107 [facility] Comment on above: Performed By: #### U AMIC #### [facility] [address] [address] [address] Manda York CO2 [Moles/Vol] 26.1 mmol/L Normal 21.0-32.0 [facility] Comment on above: Performed By: #### U AMIC #### [facility] [address] [address] [address] Manda York Creatinine [Mass/Vol] 0.80 mg/dL Normal 0.55-1.02 [facility] Comment on above: Performed By: #### U AMIC #### [facility] [address] [address] [address] Manda York EGFR-AF MALAYSIAN >60 Normal >=60 [facility] Comment on above: Performed By: #### U AMIC #### [facility] [address] [address] [address] Manda York EGFR-NON AF MALAYSIAN >60 Normal >=60 [facility] Comment on above: Performed By: #### U AMIC #### [facility] [address] [address] [address] Manda York Globulin (S) [Mass/Vol] 3.8 g/dL Normal [facility] Comment on above: Performed By: #### U AMIC #### [facility] [address] [address] [address] Manda York Glucose [Mass/Vol] 93 mg/dL Normal 74-106 [facility] Comment on above: Performed By: #### U AMIC #### [facility] [address] [address] [address] Manda York Potassium [Moles/Vol] 3.9 mmol/L Normal 3.5-5.1 [facility] Comment on above: Performed By: #### U AMIC #### [facility] [address] [address] [address] Manda York Protein [Mass/Vol] 7.6 g/dL Normal 6.4-8.2 [facility] Comment on above: Performed By: #### U AMIC #### [facility] [address] [address] [address] Manda York Sodium [Moles/Vol] 135 mmol/L Critically low 136-145 [facility] Comment on above: Performed By: #### U AMIC #### [facility] [address] [address] [address] Manda York Urea nitrogen [Mass/Vol] 10.0 mg/dL Normal 7.0-18.0 [facility] Comment on above: Performed By: #### U AMIC #### [facility] [address] [address] [address] Manda York Urea nitrogen/Creatinine [Mass ratio] 12.5 mg/mg Normal [facility] Comment on above: Performed By: #### U AMIC #### [facility] [address] [address] [address] Manda York TSHon 03-09-2022 TSH 0.610 uIU/mL Normal 0.358-3.740 [facility] Comment on above: Performed By: #### U AMIC #### [facility] [address] [place] [address] Dr. Manda York B2 MICROGLOBULIN [facility] 022 [id number] [Mass/Vol] 1.8 ug/mL 0.8 - 2.4 mg/L [facility] FERRITIN BLDon 03-05-2022 Ferritin [Mass/Vol] 33.2 ng/mL 14.7 - 2 05.1 ng/mL [facility] FOLATE SERUMon 03-05-2022 Folate [Mass/Vol] 6.6 ng/mL >4.7 ng/mL [facility] Iron and Iron binding capaci ty panelon 03-05-2022 Iron [Mass/Vol] 49 ug/dL 41 - 186 ug/dL [facility] Iron binding capacity [Mass/Vol] 392 ug/dL High 232 - 386 ug/dL [facility] Iron/TIBC [Molar ratio] 12.5 % Low 15.0 - 57.0 % [facility] CBC W Auto Differential pane l (Bld)on 03-04-2022 Basophils (Bld) [#/Vol] 0.07 10*3/uL <0.11 k/uL [facility] Basophils/100 WBC (Bld) 0.6 % [facility] Differential cell count method Nom (Bld) Auto [facility] Eosinophils (Bld) [#/Vol] 0.19 10*3/uL <0.46 k/uL [facility] Eosinophils/100 WBC (Bld) 1.7 % [facility] Erythrocyte distribution width (RBC) [Ratio] 14.7 % 11.5 - 15.0 % [facility] Hematocrit (Bld) [Volume fraction] 40.0 % 36.0 - 46.0 % [facility] Hemoglobin (Bld) [Mass/Vol] 13.0 g/dL 11.5 - 15.5 g/dL [facility] Immature granulocytes (Bld) [#/Vol] 0.07 10*3/uL <0.10 k/uL [facility] Immature granulocytes/100 WBC (Bld) 0.6 % [facility] Lymphocytes (Bld) [#/Vol] 3.31 10*3/uL 1.00 - 4.00 k/uL [facility] Lymphocytes/100 WBC (Bld) 30.2 % [facility] MCH (RBC) [Entitic mass] 28.9 pg 26.0 - 34.0 pg [facility] MCHC (RBC) [Mass/Vol] 32.5 g/dL 30.5 - 36.0 g/dL [facility] MCV (RBC) [Entitic vol] 88.9 fL 80.0 - 100.0 fL [facility] Monocytes (Bld) [#/Vol] 0.70 10*3/uL <0.87 k/uL [facility] Monocytes/100 WBC (Bld) 6.4 % [facility] Neutrophils (Bld) [#/Vol] 6.63 10*3/uL 1.45 - 7.50 k/uL [facility] Neutrophils/100 WBC (Bld) 60.5 % [facility] Nucleated RBC (Bld) [#/Vol] <0.01 k/uL [facility] Nucleated RBC/100 WBC (Bld) [Ratio] 0.0 /100 WBC [facility] Platelet mean volume (Bld) [Entitic vol] 9.6 fL 9.0 - 12.7 fL [facility] Platelets (Bld) [#/Vol] 355 10*3/uL 150 - 400 k/uL [facility] RBC (Bld) [#/Vol] 4.50 10*6/uL 3.90 - 5.2 0 m/uL [facility] WBC (Bld) [#/Vol] 10.97 10*3/uL 3.70 - 11 .00 k/uL [facility] Calcium.ionized [Moles/Vol]o n 10-12-2022 Calcium.ionized (Bld) [Mass/Vol] 1.26 mmol/L 1.08 - 1.30 mmol/L [facility] Calcium.ionized adjusted to pH 7.4 (Bld) [Moles/Vol] 1.25 mmol/L 1.08 - 1.30 mmol/L [facility] Comprehensive metabolic 2000 panelon 03-04-2022 Albumin [Mass/Vol] 4.3 g/dL 3.9 - 4.9 g/dL [facility] ALP [Catalytic activity/Vol] 70 U/L 34 - 123 U/L [facility] ALT [Catalytic activity/Vol] 26 U/L 7 - 38 U/L [facility] Anion gap [Moles/Vol] 7 mmol/L Low 9 - 18 mmol/L [facility] AST [Catalytic activity/Vol] 12 U/L Low 13 - 35 U/L [facility] Bilirubin [Mass/Vol] 0.2 mg/dL 0.2 - 1 .3 mg/dL [facility] Calcium [Mass/Vol] 9.3 mg/dL 8.5 - 10. 2 mg/dL [facility] Chloride [Moles/Vol] 103 mmol/L 97 - 10 5 mmol/L [facility] CO2 [Moles/Vol] 28 mmol/L 22 - 30 mmol/L [facility] Creatinine [Mass/Vol] 0.69 mg/dL 0.58 - 0.96 mg/dL [facility] Estimated Glomerular Filtration Rate 112 mL/min/1.73m >=60 mL/min/1.73m [facility] Glucose [Mass/Vol] 100 mg/dL High 74 - 99 mg/dL [facility] Potassium [Moles/Vol] 3.9 mmol/L 3.7 - 5.1 mmol/L [facility] Protein [Mass/Vol] 7.0 g/dL 6.3 - 8.0 g/dL [facility] Sodium [Moles/Vol] 138 mmol/L 136 - 144 mmol/L [facility] Urea nitrogen [Mass/Vol] 12 mg/dL 7 - 21 mg/dL [facility] LD LACTATE DEHYDROon 022 LDH [Catalytic activity/Vol] 135 U/L 135 - 214 U/L [facility] PHOSPHORUS INORGANICon 03-04 Phosphate [Mass/Vol] 3.2 mg/dL 2.7 - 4 .8 mg/dL [facility] URIC ACID BLOODon 03-04-2022 Urate [Mass/Vol] 5.2 mg/dL 2.5 - 6.6 mg/dL [facility] IMMUNOGLOBULINS IGA/IGM/IGG/ IGE QUANTITAon 02-20-2022 Immunoglobulin A, Qn, Serum 189 mg/dL Normal 87-352 [facility] Comment on above: Result Comment: Perf ormed at: CB Performed By: #### Lucinda MELO THYLC #### [facility] [address] [address] [address] Manda York Immunoglobulin E, Total 10 IU/mL Normal 6-495 [facility] Comment on above: Result Comment: Perf ormed at: BN Performed By: #### Lucinda MELO THYLC #### [facility] [address] [address] [address] Manda York Immunoglobulin G, Qn, Serum 598 mg/dL Normal 586-1602 [facility] Comment on above: Result Comment: Perf ormed at: CB Performed By: #### Lucinda MELO THYLC #### [facility] [address] [address] [address] Manda York Immunoglobulin M, Qn, Serum 493 mg/dL Critically high 26-217 [facility] Comment on above: Result Comment: Perf ormed at: CB Performed By: #### Lucinda MELO THYLC #### [facility] [address] [address] [address] Manda York CHRISTIAN by IFAon 02-19-2022 Antinuclear Antibodies, IFA Negative Normal [facility] Comment on above: Result Comment: Nega tive <1:80 Borderline 1:80 Positive >1:80 ICAP nomenclature: AC-0 For more information about Hep-2 cell patterns use ANApatterns.org, the official website for the International Consensus on Antinuclear Antibody (CHRISTIAN) Patterns (ICAP). Performed By: #### Lucinda MELO THYLC #### [facility] [address] [address] [address] Manda York THYROID ANTIBODIESon 022 Thyroglobulin Antibody <1.0 Normal 0.0-0.9 [facility] Comment on above: Result Comment: Thyr oglobulin Antibody measured by [employer] Methodology Performed By: #### F T4 #### [facility] [address] [place] [address] Dr. Manda York Thyroid Peroxidase (TPO) Ab <8 Normal 0-34 [facility] Comment on above: Performed By: #### F T4 #### [facility] [address] [place] [address] Dr. Manda York PROTEIN ELECTROPHERESISon Albumin [Mass/Vol] 3.2 g/dL Normal 2.9-4.4 [facility] Comment on above: Performed By: #### F T4 #### [facility] [address] [place] [address] Dr. Manda York Albumin/Globulin [Mass ratio] 1.0 {ratio} Normal 0.7-1.7 [facility] Comment on above: Performed By: #### F T4 #### [facility] [address] [place] [address] Dr. Manda York Ctcxu-[id number] 0.2 g/dL Normal 0.0-0.4 [facility] Comment on above: Performed By: #### F T4 #### [facility] [address] [place] [address] Dr. Manda York Dnwoj-6-Aqnqxvvd 0.9 g/dL Normal 0.4-1.0 [facility] Comment on above: Performed By: #### F T4 #### [facility] [address] [place] [address] Dr. Manda York Beta Globulin 1.2 g/dL Normal 0.7-1.3 [facility] Comment on above: Performed By: #### F T4 #### [facility] [address] [place] [address] Dr. Manda York Gamma Globulin 0.9 g/dL Normal 0.4-1.8 [facility] Comment on above: Performed By: #### F T4 #### [facility] [address] [place] [address] Dr. Manda York Globulin (S) [Mass/Vol] 3.2 g/dL Normal 2.2-3.9 [facility] Comment on above: Performed By: #### F T4 #### [facility] [address] [place] [address] Dr. Manda York M-Jose De Jesus Not Observed Normal Not Observed [facility] Comment on above: Performed By: #### F T4 #### [facility] [address] [place] [address] Dr. Manda York PDF . Normal [facility] Comment on above: Performed By: #### F T4 #### [facility] [address] [place] [address] Dr. Manda York Please note: Comment Normal [facility] Comment on above: Result Comment: Prot ein electrophoresis scan will follow via computer, mail, or director of rotc delivery. Performed By: #### F T4 #### [facility] [address] [place] [address] Dr. Manda York Protein [Mass/Vol] 6.4 g/dL Normal 6.0-8.5 [facility] Comment on above: Performed By: #### F T4 #### [facility] [address] [place] [address] Dr. Manda York SLE PROFILE Aon 02-16-2022 Anti-DNA (DS) Ab Qn 9 IU/mL Normal 0-9 [facility] Comment on above: Result Comment: Nega tive <5 Equivocal 5 - 9 Positive >9 Performed By: #### S LUIGI MELO #### [facility] [address] [place] [address] Dr. Manda York Antichromatin Antibodies <0.2 Normal 0.0-0.9 [facility] Comment on above: Performed By: #### S LUIGI MELO #### [facility] [address] [place] [address] Dr. Manda York RA Latex Turbid. <10.0 Normal <14.0 [facility] Comment on above: Performed By: #### S LEANN MELOC #### [facility] [address] [place] [address] Dr. Manda York DOUGH SCALER AND MIXER Antibodies <0.2 Normal 0.0-0.9 [facility] Comment on above: Performed By: #### LUIGI PATRICK #### [facility] [address] [place] [address] Dr. Manda York Sjogren'lucinda Anti-SS-A <0.2 Normal 0.0-0.9 [facility] Comment on above: Performed By: #### LUIGI PATRICK #### [facility] [address] [place] [address] Dr. Manda Solorzanoogryaniv'lucinda Anti-SS-B <0.2 Normal 0.0-0.9 [facility] Comment on above: Performed By: #### LUIGI PATRICK #### [facility] [address] [place] [address] Dr. Manda York Schneider Antibodies <0.2 Normal 0.0-0.9 [facility] Comment on above: Performed By: #### LUIGI PATRICK #### [facility] [address] [place] [address] Dr. Manda York ANTISTREPTOLYSIN O AB (ASO)o n 02-15-2022 Antistreptolysin O Ab 49.6 IU/mL Normal 0.0-200.0 [facility] Comment on above: Performed By: #### A SOAB #### [facility] [address] [place] [address] Dr. Manda York MICROALBUMIN URINEon 022 Albumin, Urine <3.0 Normal Not Estab. [facility] Comment on above: Result Comment: Ve rified by repeat analysis Performed By: #### C BC #### [facility] [address] [place] [address] Dr. Manda York T4, T3U, FTI LABCORPon 02-15 Free Thyroxine Index 2.6 Normal 1.2-4.9 [facility] Comment on above: Performed By: #### LUIGI PATRICK #### [facility] [address] [address] [address] Manda York T3 Uptake 26 % Normal 24-39 [facility] Comment on above: Performed By: #### S LUIGI MELO #### [facility] [address] [place] [address] Dr. Manda York T4 [Mass/Vol] 9.9 ug/dL Normal 4.5-12.0 [facility] Comment on above: Performed By: #### LUIGI PATRICK #### [facility] [address] [place] [address] Dr. Manda York CBC AUTO DIFFon 02-14-2022 BASO # 0.1 103/ul Normal 0.0-0.1 [facility] Comment on above: Performed By: #### U AMIC #### [facility] [address] [place] [address] Dr. Manda York Basophils/100 WBC (Bld) 0.6 % Normal 0.2-2.0 [facility] Comment on above: Performed By: #### U AMIC #### [facility] [address] [place] [address] Dr. Manda York EO # 0.3 103/ul Normal 0.0-0.7 [facility] Comment on above: Performed By: #### U AMIC #### [facility] [address] [place] [address] Dr. Manda York Eosinophils/100 WBC (Bld) 3.4 % Normal 0.9-7.0 [facility] Comment on above: Performed By: #### U AMIC #### [facility] [address] [place] [address] Dr. Manda York Erythrocyte distribution width (RBC) [Ratio] 14.6 % Normal 11.0-15.0 [facility] Comment on above: Performed By: #### U AMIC #### [facility] [address] [place] [address] Dr. Manda York Hematocrit (Bld) [Volume fraction] 39.1 % Normal 36.0-48.0 [facility] Comment on above: Performed By: #### U AMIC #### [facility] [address] [address] [address] Manda York Hemoglobin (Bld) [Mass/Vol] 12.4 g/dL Normal 12.0-16.0 [facility] Comment on above: Performed By: #### U AMIC #### [facility] [address] [place] [address] Dr. Manda York IG # 0.03 10e3/ul Normal 0.00-0.03 [facility] Comment on above: Performed By: #### U AMIC #### [facility] [address] [place] [address] Dr. Manda York IG % 0.3 % Normal 0.0-0.5 [facility] Comment on above: Performed By: #### U AMIC #### [facility] [address] [place] [address] Dr. Manda York LYMPH # 3.6 103/ul Normal 1.2-3.8 [facility] Comment on above: Performed By: #### U AMIC #### [facility] [address] [place] [address] Dr. Manda York Lymphocytes/100 WBC (Bld) 39.9 % Normal 20.5-60.0 [facility] Comment on above: Performed By: #### U AMIC #### [facility] [address] [place] [address] Dr. Manda York MANUAL DIFF REQ NO Normal [facility] Comment on above: Performed By: #### U AMIC #### [facility] [address] [place] [address] Dr. Manda York MCH (RBC) [Entitic mass] 28.4 pg Normal 26.7-34.0 [facility] Comment on above: Performed By: #### U AMIC #### [facility] [address] [place] [address] Dr. Manda York MCHC (RBC) [Mass/Vol] 31.7 g/dL Normal 29.9-35.2 [facility] Comment on above: Performed By: #### U AMIC #### [facility] [address] [address] [address] Manda York MCV (RBC) [Entitic vol] 89.7 fL Normal 81.0-99.0 [facility] Comment on above: Performed By: #### U AMIC #### [facility] [address] [address] [address] Manda York MONO # 0.7 103/ul Normal 0.3-0.8 [facility] Comment on above: Performed By: #### U AMIC #### [facility] [address] [address] [address] Manda York Monocytes/100 WBC (Bld) 7.3 % Normal 1.7-12.0 [facility] Comment on above: Performed By: #### U AMIC #### [facility] [address] [address] [address] Manda York NEUT # 4.4 103/ul Normal 1.4-6.5 [facility] Comment on above: Performed By: #### U AMIC #### [facility] [address] [address] [address] Manda York Neutrophils/100 WBC (Bld) 48.5 % Normal 43.0-75.0 [facility] Comment on above: Performed By: #### U AMIC #### [facility] [address] [address] [address] Manda York Platelet mean volume (Bld) [Entitic vol] 10.1 fL Normal 9.5-13.5 [facility] Comment on above: Performed By: #### U AMIC #### [facility] [address] [address] [address] Manda York PLT 310 103/ul Normal 150-450 [facility] Comment on above: Performed By: #### U AMIC #### [facility] [address] [address] [address] Manda York RBC 4.36 106/ul Normal 4.20-5.40 [facility] Comment on above: Performed By: #### U AMIC #### [facility] [address] [place] [address] Dr. Manda York WBC 9.0 103/ul Normal 4.0-11.0 [facility] Comment on above: Performed By: #### U AMIC #### [facility] [address] [place] [address] Dr. Manda York CRPon 02-14-2022 CRP [Mass/Vol] mg/L Normal <=1.0 [facility] Comment on above: Performed By: #### U AMIC #### [facility] [address] [place] [address] Dr. Manda York CULTURE URINEon 02-14-2022 CULTURE URINE Culture Observations : LIGHT GROWTH OF MIXED GENITAL AMBER. NO POTENTIAL PATHOGENS SEEN. Normal [facility] Comment on above: Performed By: #### C BC #### [facility] [address] [place] [address] Dr. Manda York PROF 14(COMP METB)on 022 Albumin [Mass/Vol] 3.5 g/dL Normal 3.4-5.0 [facility] Comment on above: Performed By: #### U AMIC #### [facility] [address] [place] [address] Dr. Manda York Albumin/Globulin [Mass ratio] 1.0 {ratio} Normal [facility] Comment on above: Performed By: #### U AMIC #### [facility] [address] [place] [address] Dr. Manda York ALP [Catalytic activity/Vol] 71 U/L Normal 46-116 [facility] Comment on above: Performed By: #### U AMIC #### [facility] [address] [place] [address] Dr. Manda York ALT [Catalytic activity/Vol] 46 U/L Normal 14-59 [facility] Comment on above: Performed By: #### U AMIC #### [facility] [address] [place] [address] Dr. Manda York Anion gap [Moles/Vol] 11.6 mmol/L Normal [facility] Comment on above: Performed By: #### U AMIC #### [facility] [address] [address] [address] Manda York AST [Catalytic activity/Vol] 15 U/L Normal 15-37 [facility] Comment on above: Performed By: #### U AMIC #### [facility] [address] [address] [address] Manda York Bilirubin [Mass/Vol] 0.2 mg/dL Normal 0.2-1.0 [facility] Comment on above: Performed By: #### U AMIC #### [facility] [address] [address] [address] Manda York Calcium [Mass/Vol] 8.7 mg/dL Normal 8.5-10.1 [facility] Comment on above: Performed By: #### U AMIC #### [facility] [address] [address] [address] Manda York Chloride [Moles/Vol] 104 mmol/L Normal 98-107 [facility] Comment on above: Performed By: #### U AMIC #### [facility] [address] [address] [address] Manda York CO2 [Moles/Vol] 25.1 mmol/L Normal 21.0-32.0 [facility] Comment on above: Performed By: #### U AMIC #### [facility] [address] [address] [address] Manda York Creatinine [Mass/Vol] 0.80 mg/dL Normal 0.55-1.02 [facility] Comment on above: Performed By: #### U AMIC #### [facility] [address] [address] [address] Manda York EGFR-AF MALAYSIAN >60 Normal >=60 [facility] Comment on above: Performed By: #### U AMIC #### [facility] [address] [address] [address] Manda York EGFR-NON AF MALAYSIAN >60 Normal >=60 [facility] Comment on above: Performed By: #### U AMIC #### [facility] [address] [address] [address] Manda York Globulin (S) [Mass/Vol] 3.6 g/dL Normal [facility] Comment on above: Performed By: #### U AMIC #### [facility] [address] [address] [address] Manda York Glucose [Mass/Vol] 92 mg/dL Normal 74-106 [facility] Comment on above: Performed By: #### U AMIC #### [facility] [address] [address] [address] Manda York Potassium [Moles/Vol] 3.7 mmol/L Normal 3.5-5.1 [facility] Comment on above: Performed By: #### U AMIC #### [facility] [address] [place] [address] Dr. Manda York Protein [Mass/Vol] 7.1 g/dL Normal 6.4-8.2 [facility] Comment on above: Performed By: #### U AMIC #### [facility] [address] [place] [address] Dr. Manda York Sodium [Moles/Vol] 137 mmol/L Normal 136-145 [facility] Comment on above: Performed By: #### U AMIC #### [facility] [address] [place] [address] Dr. Manda York Urea nitrogen [Mass/Vol] 17.0 mg/dL Normal 7.0-18.0 [facility] Comment on above: Performed By: #### U AMIC #### [facility] [address] [place] [address] Dr. Manda York Urea nitrogen/Creatinine [Mass ratio] 21.2 mg/mg Normal [facility] Comment on above: Performed By: #### U AMIC #### [facility] [address] [address] [address] Manda York SED RATE [facility] 2021 SED RATE 40 mm/hr Critically high <=20 [facility] Comment on above: Performed By: #### S EDR #### [facility] [address] [address] [address] Manda York TSHon 02-14-2022 TSH 1.155 uIU/mL Normal 0.358-3.740 [facility] Comment on above: Performed By: #### U AMIC #### [facility] [address] [place] [address] Dr. Manda York UA RANDOM W/MICROSCOPICon BACTERIA NONE SEEN Normal NONE SEEN [facility] Comment on above: Performed By: #### U AMIC #### [facility] [address] [place] [address] Dr. Manda York Bilirubin Ql (U) Negative Normal NEGATIVE [facility] Comment on above: Performed By: #### U AMIC #### [facility] [address] [place] [address] Dr. Manda York CAST NONE SEEN Normal NONE SEEN [facility] Comment on above: Performed By: #### U AMIC #### [facility] [address] [place] [address] Dr. Manda York Clarity (U) CLEAR Normal CLEAR [facility] Comment on above: Performed By: #### U AMIC #### [facility] [address] [place] [address] Dr. Manda York Color (U) LT. YELLOW Normal YELLOW [facility] Comment on above: Performed By: #### U AMIC #### [facility] [address] [place] [address] Dr. Manda York Crystals LM Nom (Urine sed) NONE SEEN Normal NONE SEEN [facility] Comment on above: Performed By: #### U AMIC #### [facility] [address] [place] [address] Dr. Manda York Epithelial cells LM Ql (Urine sed) RARE Normal NONE SEEN /RARE [facility] Comment on above: Performed By: #### U AMIC #### [facility] [address] [place] [address] Dr. Manda York Glucose Ql (U) Negative Normal NEGATIVE [facility] Comment on above: Performed By: #### U AMIC #### [facility] [address] [address] [address] Manda York Hemoglobin Ql (U) Negative Normal NEGATIVE [facility] Comment on above: Performed By: #### U AMIC #### [facility] [address] [address] [address] Manda York Ketones Ql (U) Negative Normal NEGATIVE [facility] Comment on above: Performed By: #### U AMIC #### [facility] [address] [address] [address] Manda York LEUKOCYTES Negative Normal NEGATIVE [facility] Comment on above: Performed By: #### U AMIC #### [facility] [address] [address] [address] Manda York MUCOUS NONE SEEN Normal NONE SEEN [facility] Comment on above: Performed By: #### U AMIC #### [facility] [address] [place] [address] Dr. Manda York Nitrite Ql (U) Negative Normal NEGATIVE [facility] Comment on above: Performed By: #### U AMIC #### [facility] [address] [place] [address] Dr. Manda York pH (U) 6.0 [pH] Normal 5-9 [facility] Comment on above: Performed By: #### U AMIC #### [facility] [address] [place] [address] Dr. Manda York RBC NONE SEEN Abnormal 0-2 [facility] Comment on above: Performed By: #### U AMIC #### [facility] [address] [place] [address] Dr. Manda York SPEC GRAVITY 1.005 Normal 1.005-<=1.025 [facility] Comment on above: Performed By: #### U AMIC #### [facility] [address] [place] [address] Dr. Manda York UA PROTEIN Negative Normal NEGATIVE/ TRACE [facility] Comment on above: Performed By: #### U AMIC #### [facility] [address] [place] [address] Dr. Manda York Urobilinogen Qn (U) 0.2 {Carmella'U}/dL Normal 0.2 - 1. 0 [facility] Comment on above: Performed By: #### U AMIC #### [facility] [address] [place] [address] Dr. Manda York WBC NONE SEEN Normal NONE SEEN [facility] Comment on above: Performed By: #### U AMIC #### [facility] [address] [place] [address] Dr. Manda York URIC ACID SERUMon 02-14-2022 Urate [Mass/Vol] 4.2 mg/dL Normal 2.6-6.0 [facility] Comment on above: Performed By: #### U AMIC #### [facility] [address] [place] [address] Dr. Manda York VITAMIN D 25 OHon 02-14-2022 VIT D 25-OH 22.4 ng/mL Normal [facility] Comment on above: Performed By: #### F T4 #### [facility] [address] [place] [address] Dr. Manda York VIT D RANGES SEE BELOW Normal [facility] Comment on above: Result Comment: <20 ng/mL Vit D deficient 20 - <30 ng/mL Vit D insufficient 30 - 100 ng/mL Vit D sufficient >100 ng/mL Potential Toxicity Performed By: #### F T4 #### [facility] [address] [place] [address] Dr. Manda York METANEPHRINES FRAC. QNT 24 H R URINEon 11-28-2021 Metanephrine, U,24hr Comment Normal 36-209 [facility] Comment on above: Result Comment: No t otal volume submitted. Unable to calculate 24 hour result. Performed By: #### S LUIGI MELO #### [facility] [address] [place] [address] Dr. Manda York Metanephrine, Ur 57 ug/L Normal Undefined [facility] Comment on above: Performed By: #### S LUIGI MELO #### [facility] [address] [place] [address] Dr. Manda York Normetanephr.,U,24h Comment Normal 131-612 [facility] Comment on above: Result Comment: No t otal volume submitted. Unable to calculate 24 hour result. Performed By: #### LEANN PATRICKC #### [facility] [address] [address] [address] Manda York Normetanephrine, Ur 116 ug/L Normal Undefined [facility] Comment on above: Performed By: #### LEANN PATRICKC #### [facility] [address] [address] [address] Manda York METANEPHRINES PLASMA FREEon 11-27-2021 Metanephrine, Pl 22.1 pg/mL Normal 0.0-88.0 [facility] Comment on above: Performed By: #### LEANN PATRICKC #### [facility] [address] [place] [address] Dr. Manda York Normetanephrine, Pl 50.7 pg/mL Normal 0.0-218.9 [facility] Comment on above: Performed By: #### LEANN PATRICK #### [facility] [address] [address] [address] Manda York CMV PLASMA PCRon 11-19-2021 CMV Quant DNA PCR (Plasma) Negative Normal Negative [facility] Comment on above: Result Comment: No C MV DNA detected. The quantitative range of this assay is 200 to 1 million IU/mL. Performed By: #### LEANN PATRICKC #### [facility] [address] [address] [address] Manda York log10 CMV Qn DNA Pl UPTCAL Normal [facility] Comment on above: Result Comment: Unab le to calculate result since non-numeric result obtained for component test. Performed By: #### Lucinda MELO THYLC #### [facility] [address] [place] [address] Dr. Manda York CMV AB IGMon 11-18-2021 Cytomegalovirus (CMV) Ab, IgM 43.2 AU/mL Critically high 0.0-29.9 [facility] Comment on above: Result Comment: Nega tive <30.0 Equivocal 30.0 - 34.9 Positive >34.9 A positive result is generally indicative of acute infection, reactivation or persistent IgM production. Performed By: #### S LUIGI MELO #### [facility] [address] [place] [address] Dr. Manda York CMV AB, IGGon 11-18-2021 Cytomegalovirus (CMV) Ab, IgG >10.00 Critically high 0.00-0.59 [facility] Comment on above: Result Comment: Nega tive <0.60 Equivocal 0.60 - 0.69 Positive >0.69 Performed By: #### C MVIGG #### [facility] [address] [place] [address] Dr. Manda York CBC AUTO DIFFon 11-17-2021 BASO # 0.1 103/ul Normal 0.0-0.1 [facility] Comment on above: Performed By: #### C BC #### [facility] [address] [place] [address] Dr. Manda York Basophils/100 WBC (Bld) 0.6 % Normal 0.2-2.0 [facility] Comment on above: Performed By: #### C BC #### [facility] [address] [place] [address] Dr. Manda York EO # 0.2 103/ul Normal 0.0-0.7 [facility] Comment on above: Performed By: #### C BC #### [facility] [address] [place] [address] Dr. Manda York Eosinophils/100 WBC (Bld) 2.3 % Normal 0.9-7.0 [facility] Comment on above: Performed By: #### C BC #### [facility] [address] [place] [address] Dr. Manda York Erythrocyte distribution width (RBC) [Ratio] 14.2 % Normal 11.0-15.0 [facility] Comment on above: Performed By: #### C BC #### [facility] [address] [place] [address] Dr. Manda York Hematocrit (Bld) [Volume fraction] 40.2 % Normal 36.0-48.0 [facility] Comment on above: Performed By: #### C BC #### [facility] [address] [place] [address] Dr. Manda York Hemoglobin (Bld) [Mass/Vol] 12.8 g/dL Normal 12.0-16.0 [facility] Comment on above: Performed By: #### C BC #### [facility] [address] [place] [address] Dr. Manda York IG # 0.02 10e3/ul Normal 0.00-0.03 [facility] Comment on above: Performed By: #### C BC #### [facility] [address] [place] [address] Dr. Manda York IG % 0.2 % Normal 0.0-0.5 [facility] Comment on above: Performed By: #### C BC #### [facility] [address] [place] [address] Dr. Manda York LYMPH # 2.5 103/ul Normal 1.2-3.8 [facility] Comment on above: Performed By: #### C BC #### [facility] [address] [place] [address] Dr. Manda York Lymphocytes/100 WBC (Bld) 24.9 % Normal 20.5-60.0 [facility] Comment on above: Performed By: #### C BC #### [facility] [address] [place] [address] Dr. Manda York MANUAL DIFF REQ NO Normal [facility] Comment on above: Performed By: #### C BC #### [facility] [address] [place] [address] Dr. Manda York MCH (RBC) [Entitic mass] 27.9 pg Normal 26.7-34.0 [facility] Comment on above: Performed By: #### C BC #### [facility] [address] [place] [address] Dr. Manda York MCHC (RBC) [Mass/Vol] 31.8 g/dL Normal 29.9-35.2 [facility] Comment on above: Performed By: #### C BC #### [facility] [address] [address] [address] Manda York MCV (RBC) [Entitic vol] 87.6 fL Normal 81.0-99.0 [facility] Comment on above: Performed By: #### C BC #### [facility] [address] [address] [address] Manda York MONO # 0.6 103/ul Normal 0.3-0.8 [facility] Comment on above: Performed By: #### C BC #### [facility] [address] [address] [address] Manda York Monocytes/100 WBC (Bld) 6.3 % Normal 1.7-12.0 [facility] Comment on above: Performed By: #### C BC #### [facility] [address] [place] [address] Dr. Manda York NEUT # 6.5 103/ul Normal 1.4-6.5 [facility] Comment on above: Performed By: #### C BC #### [facility] [address] [place] [address] Dr. Manda York Neutrophils/100 WBC (Bld) 65.7 % Normal 43.0-75.0 [facility] Comment on above: Performed By: #### C BC #### [facility] [address] [place] [address] Dr. Manda York Platelet mean volume (Bld) [Entitic vol] 10.1 fL Normal 9.5-13.5 [facility] Comment on above: Performed By: #### C BC #### [facility] [address] [place] [address] Dr. Manda York PLT 304 103/ul Normal 150-450 [facility] Comment on above: Performed By: #### C BC #### [facility] [address] [place] [address] Dr. Manda York RBC 4.59 106/ul Normal 4.20-5.40 [facility] Comment on above: Performed By: #### C BC #### [facility] [address] [place] [address] Dr. Manda York WBC 9.9 103/ul Normal 4.0-11.0 [facility] Comment on above: Performed By: #### C BC #### [facility] [address] [place] [address] Dr. Manda York PROF 14(COMP METB)on 022 Albumin [Mass/Vol] 3.7 g/dL Normal 3.4-5.0 [facility] [facility] Comment on above: Performed By: #### C BC #### [facility] [address] [place] [address] Dr. Manda York Albumin/Globulin [Mass ratio] 1.0 {ratio} Normal [facility] Comment on above: Performed By: #### C BC #### [facility] [address] [place] [address] Dr. Manda York ALP [Catalytic activity/Vol] 65 U/L Normal 46-116 [facility] Comment on above: Performed By: #### C BC #### [facility] [address] [place] [address] Dr. Manda York ALT [Catalytic activity/Vol] 35 U/L Normal 14-59 [facility] Comment on above: Performed By: #### C BC #### [facility] [address] [place] [address] Dr. Manda York Anion gap [Moles/Vol] 13.0 mmol/L Normal [facility] Comment on above: Performed By: #### C BC #### [facility] [address] [place] [address] Dr. Manda York AST [Catalytic activity/Vol] 12 U/L Critically low 15-37 [facility] Comment on above: Performed By: #### C BC #### [facility] [address] [place] [address] Dr. Manda York Bilirubin [Mass/Vol] 0.2 mg/dL Normal 0.2-1.0 [facility] Comment on above: Performed By: #### C BC #### [facility] [address] [address] [address] Manda York Calcium [Mass/Vol] 8.7 mg/dL Normal 8.5-10.1 [facility] Comment on above: Performed By: #### C BC #### [facility] [address] [address] [address] Manda York Chloride [Moles/Vol] 104 mmol/L Normal 98-107 [facility] Comment on above: Performed By: #### C BC #### [facility] [address] [place] [address] Dr. Manda York CO2 [Moles/Vol] 24.9 mmol/L Normal 21.0-32.0 [facility] Comment on above: Performed By: #### C BC #### [facility] [address] [place] [address] Dr. Manda York Creatinine [Mass/Vol] 0.77 mg/dL Normal 0.55-1.02 [facility] Comment on above: Performed By: #### C BC #### [facility] [address] [place] [address] Dr. Manda York EGFR-AF MALAYSIAN >=60 Normal >=60 [facility] Comment on above: Performed By: #### C BC #### [facility] [address] [place] [address] Dr. Manda York EGFR-NON AF MALAYSIAN >=60 Normal >=60 [facility] Comment on above: Performed By: #### C BC #### [facility] [address] [place] [address] Dr. Manda York Globulin (S) [Mass/Vol] 3.8 g/dL Normal [facility] Comment on above: Performed By: #### C BC #### [facility] [address] [place] [address] Dr. Manda York Glucose [Mass/Vol] 110 mg/dL Critically high 74-106 [facility] Comment on above: Performed By: #### C BC #### [facility] [address] [place] [address] Dr. Manda York Potassium [Moles/Vol] 3.9 mmol/L Normal 3.5-5.1 [facility] Comment on above: Performed By: #### C BC #### [facility] [address] [place] [address] Dr. Manda York Protein [Mass/Vol] 7.5 g/dL Normal 6.4-8.2 [facility] Comment on above: Performed By: #### C BC #### [facility] [address] [address] [address] Manda York Sodium [Moles/Vol] 138 mmol/L Normal 136-145 [facility] Comment on above: Performed By: #### C BC #### [facility] [address] [place] [address] Dr. Manda York Urea nitrogen [Mass/Vol] 17.0 mg/dL Normal 7.0-18.0 [facility] Comment on above: Performed By: #### C BC #### [facility] [address] [place] [address] Dr. Manda York Urea nitrogen/Creatinine [Mass ratio] 22.1 mg/mg Normal [facility] Comment on above: Performed By: #### C BC #### [facility] [address] [place] [address] Dr. Manda York SED RATE [facility] 2021 SED RATE 45 mm/hr Critically high <=20 [facility] Comment on above: Performed By: #### F T4 #### [facility] [address] [place] [address] Dr. Manda York CHRISTIAN EIA W/REFLEX 5 BIOMARKER Son 10-06-2021 CHRISTIAN Direct Positive Abnormal Negative [facility] Comment on above: Performed By: #### C BC #### [facility] [address] [place], [place] [id number] Dr. Manda York Anti-DNA (DS) Ab Qn 10 IU/mL Critically high 0-9 [facility] Comment on above: Result Comment: Nega tive <5 Equivocal 5 - 9 Positive >9 Performed By: #### C BC #### [facility] [address] [address] [address] Manda York DOUGH SCALER AND MIXER Antibodies <0.2 Normal 0.0-0.9 [facility] Comment on above: Performed By: #### C BC #### [facility] [address] [place] [address] Dr. Manda York SEE BELOW: Comment Normal [facility] Comment on above: Result [...] Sm (anti-Schneider) SLE 15 - 30% --------- DOUGH SCALER [employer] MIXER Mixed Connective Tissue Disease 95% (U1 nRNP, SLE 30 - 50% anti-ribonucleoprotein) Polymyositis and/or Dermatomyositis 20% --------- Scl-70 (antiDNA Scleroderma (diffuse) 20 - 35% topoisomerase) Crest 13% --------- Felicita-1 Polymyositis and/or Dermatomyositis 20 - 40% --------- Centromere B Scleroderma - Crest variant 80% Performed By: #### C BC #### [facility] [address] [address] [address] Manda York Sjogryanvi'lucinda Anti-SS-A <0.2 Normal 0.0-0.9 [facility] Comment on above: Performed By: #### C BC #### [facility] [address] [address] [address] Manda Solorzanoogryaniv's Anti-SS-B <0.2 Normal 0.0-0.9 [facility] Comment on above: Performed By: #### C BC #### [facility] [address] [place] [address] Dr. Manda York Schneider Antibodies <0.2 Normal 0.0-0.9 [facility] Comment on above: Performed By: #### C BC #### [facility] [address] [place] [address] Dr. Manda York CMV PLASMA PCRon 10-06-2021 CMV Quant DNA PCR (Plasma) Negative Normal Negative [facility] Comment on above: Result Comment: No C MV DNA detected. The quantitative range of this assay is 200 to 1 million IU/mL. Performed By: #### C MVPL #### [facility] [address] [place] [address] Dr. Manda York log10 CMV Qn DNA Pl UPTCAL Normal [facility] Comment on above: Result Comment: Unab le to calculate result since non-numeric result obtained for component test. Performed By: #### C MVPL #### [facility] [address] [place] [address] Dr. Manda York CMV AB IGMon 2021 Cytomegalovirus (CMV) Ab, IgM 35.5 AU/mL Critically high 0.0-29.9 [facility] Comment on above: Result Comment: Nega tive <30.0 Equivocal 30.0 - 34.9 Positive >34.9 A positive result is generally indicative of acute infection, reactivation or persistent IgM production. Performed By: #### S LEANN MELOC #### [facility] [address] [place] [address] Dr. Manda York CMV AB, IGGon 2021 Cytomegalovirus (CMV) Ab, IgG 6.30 U/mL Critically high 0.00-0.59 [facility] Comment on above: Result Comment: Nega tive <0.60 Equivocal 0.60 - 0.69 Positive >0.69 Performed By: #### S LEANN MELOC #### [facility] [address] [place] [address] Dr. Manda York CBC AUTO DIFFon 10-03-2021 BASO # 0.1 103/ul Normal 0.0-0.1 [facility] Comment on above: Performed By: #### C BC #### [facility] [address] [place] [address] Dr. Manda York Basophils/100 WBC (Bld) 0.7 % Normal 0.2-2.0 [facility] Comment on above: Performed By: #### C BC #### [facility] [address] [place] [address] Dr. Manda York EO # 0.2 103/ul Normal 0.0-0.7 [facility] Comment on above: Performed By: #### C BC #### [facility] [address] [place] [address] Dr. Manda Yokr Eosinophils/100 WBC (Bld) 2.0 % Normal 0.9-7.0 [facility] Comment on above: Performed By: #### C BC #### [facility] [address] [place] [address] Dr. Manda York Erythrocyte distribution width (RBC) [Ratio] 14.4 % Normal 11.0-15.0 [facility] Comment on above: Performed By: #### C BC #### [facility] [address] [place] [address] Dr. Manda York Hematocrit (Bld) [Volume fraction] 37.2 % Normal 36.0-48.0 [facility] Comment on above: Performed By: #### C BC #### [facility] [address] [place] [address] Dr. Manda York Hemoglobin (Bld) [Mass/Vol] 12.3 g/dL Normal 12.0-16.0 [facility] Comment on above: Performed By: #### C BC #### [facility] [address] [place] [address] Dr. Manda York IG # 0.02 10e3/ul Normal 0.00-0.03 [facility] Comment on above: Performed By: #### C BC #### [facility] [address] [place] [address] Dr. Manda York IG % 0.2 % Normal 0.0-0.5 [facility] Comment on above: Performed By: #### C BC #### [facility] [address] [place] [address] Dr. Manda York LYMPH # 2.1 103/ul Normal 1.2-3.8 [facility] Comment on above: Performed By: #### C BC #### [facility] [address] [place] [address] Dr. Manda York Lymphocytes/100 WBC (Bld) 26.4 % Normal 20.5-60.0 [facility] Comment on above: Performed By: #### C BC #### [facility] [address] [place] [address] Dr. Manda York MANUAL DIFF REQ NO Normal [facility] Comment on above: Performed By: #### C BC #### [facility] [address] [place] [address] Dr. Manda York MCH (RBC) [Entitic mass] 29.2 pg Normal 26.7-34.0 [facility] Comment on above: Performed By: #### C BC #### [facility] [address] [place] [address] Dr. Manda York MCHC (RBC) [Mass/Vol] 33.1 g/dL Normal 29.9-35.2 [facility] Comment on above: Performed By: #### C BC #### [facility] [address] [place] [address] Dr. Manda York MCV (RBC) [Entitic vol] 88.4 fL Normal 81.0-99.0 [facility] Comment on above: Performed By: #### C BC #### [facility] [address] [place] [address] Dr. Manda York MONO # 0.5 103/ul Normal 0.3-0.8 [facility] Comment on above: Performed By: #### C BC #### [facility] [address] [place] [address] Dr. Manda York Monocytes/100 WBC (Bld) 6.7 % Normal 1.7-12.0 [facility] Comment on above: Performed By: #### C BC #### [facility] [address] [place] [address] Dr. Manda York NEUT # 5.2 103/ul Normal 1.4-6.5 [facility] Comment on above: Performed By: #### C BC #### [facility] [address] [place] [address] Dr. Manda York Neutrophils/100 WBC (Bld) 64.0 % Normal 43.0-75.0 [facility] Comment on above: Performed By: #### C BC #### [facility] [address] [place] [address] Dr. Manda York Platelet mean volume (Bld) [Entitic vol] 10.5 fL Normal 9.5-13.5 [facility] Comment on above: Performed By: #### C BC #### [facility] [address] [place] [address] Dr. Manda York PLT 265 103/ul Normal 150-450 [facility] Comment on above: Performed By: #### C BC #### [facility] [address] [place] [address] Dr. Manda York RBC 4.21 106/ul Normal 4.20-5.40 [facility] Comment on above: Performed By: #### C BC #### [facility] [address] [place] [address] Dr. Manda York WBC 8.1 103/ul Normal 4.0-11.0 [facility] Comment on above: Performed By: #### C BC #### [facility] [address] [place] [address] Dr. Manda York CRPon 10-03-2021 CRP [Mass/Vol] mg/L Normal <=1.0 [facility] Comment on above: Performed By: #### F T4 #### [facility] [address] [place] [address] Dr. Manda York SED RATE [facility] 2021 SED RATE 34 mm/hr Critically high <=20 [facility] Comment on above: Performed By: #### C BC #### [facility] [address] [place] [address] Dr. Manda York CHLORIDE (POC)Ordered By: Jae Holley on 10-07-2020 Chloride [Moles/Vol] 106 mmol/L 98 - 10 7 mmol/L [employer] Work Phone: Catheterization and angiogra phy procedure details panelOrdered By: Jonas Holley on 10-07-2020 Cardiac Diagnostic Report Demographics Patient TERA Torres Date of Study 10/07/2020 Name Date of 1980 Gender Female Age 40 year(s) Race Room [id number]^LEYDI^JONAS Height: 67 inch, 170.18 cm Number Corporate [id number] Weight: 234 pounds, 106.1 kg ID # Patient [id number] BSA: 2.16 m^2 BMI: 36.65 kg/m^2 Acct # MR # [id number] Performing Jonas Holley Physician Referring # Physician Assisting Physician [...] Right coronary angiography. Contrast Material: - Isovue 13784 ml Fluoroscopy Time: Diagnostic: 2:12 minutes. Total: [...] assessed as CCS II according to the Lao clinical classification. Hemodynamics Condition: Baseline Room Air [...] + + !Aortic (more content not included)... [facility] Phone: Jr, pn Incoming Cardio Results From [facility]/ - 10/07/2020 10:37 AM EDT Cardiac Diagnostic Report Demographics Patient TERA Torres Date of Study 10/07/2020 Name Date of 1980 Gender Female Age 40 year(s) Race Room [id number]^LEYDIDIANNA Height: 67 inch, 170.18 cm Number Corporate [id number] Weight: 234 pounds, 106.1 kg ID # Patient [id number] BSA: 2.16 m^2 BMI: 36.65 kg/m^2 Acct # MR # [id number] Jonas Kellogg Physician Referring # Physician Assisting Physician Additional [...] Right coronary angiography. Contrast Material: - Isovue 69502 ml Fluoroscopy Time: Diagnostic: 2:12 minutes. Total: [...] assessed as CCS II according to the Lao clinical classification. Hemodynamics Condition: Baseline Room Air [...] +--------- + + Shunts Oxygen Values O2 [id number] [employer] Phone: [employer] Phone: [employer] Phone: Creatinine W/GFR Point of Ca reOrdered By: Jonas Holley on 10-07-2020 Creatinine [Mass/Vol] 0.64 mg/dL 0.51 - 1.19 mg/dL [employer] Phone: GFR Non- >60 >60 mL/min [employer] Phone: GFR/1.73 sq M.predicted MDRD (S/P/Bld) [Vol rate/Area] mL/min/{1.73_m2} >60 mL/min [employer] Phone: GFR/1.73 sq M.predicted MDRD (S/P/Bld) [Vol rate/Area] [employer] Phone: Comment on above: Average GFR for 40-4 9 years old: 99 mL/min/1.73sq m Chronic Kidney Disease: <60 mL/min/1.73sq m Kidney failure: <15 mL/min/1.73sq m eGFR calculated using average adult body mass. Additional eGFR calculator available at: http://www.Instantis/multiple_crcl_2012.htm Hemoglobin and hematocrit, b loodOrdered By: Jonas Holley on 10-07-2020 Hematocrit (Bld) [Volume fraction] 41 % 36 - 46 % [employer] Phone: Hemoglobin (Bld) [Mass/Vol] 14.0 g/dL 12.0 - 16.0 g/dL [employer] Phone: No Panel InformationOrdered By: Jonas Holley on 10-07-2020 [employer] Phone: POCT GlucoseOrdered By: Anu Holley on 10-07-2020 Glucose [Mass/Vol] 98 mg/dL 74 - 100 mg/dL [employer] Phone: POCT urine pregnancyOrdered By: Jonas Holley on 10-07-2020 Beta HCG ( test) Ql (U) Negative NEGATIVE [employer] Phone: Comment on above: Specimens with hCG l evels near the threshold of the test (25 mIU/mL) may give a negative or indeterminate result. In such cases, another test should be performed with a new specimen in 48-72 hours. If early is suspected clinically in this setting, correlation with quantitative serum b-hCG level is suggested. [employer] Phone: POTASSIUM (POC)Ordered By: Al Holley on 10-07-2020 Potassium [Moles/Vol] 3.8 mmol/L 3.5 - 4.5 mmol/L [employer] Phone: Platelet Counton 10-07-2020 Platelets (Bld) [#/Vol] 299 10*3/uL Normal 138-453 [facility] Comment on above: Performed By: #### P LT #### [employer] [address] [place] [address] Dress Cap Maker: Rick Serrano MD Platelet countOrdered By: Jae Holley on 10-07-2020 Platelets (Bld) [#/Vol] 299 10*3/uL [employer] Phone: [employer] Phone: SODIUM (POC)Ordered By: Anu Holley on 10-07-2020 Sodium [Moles/Vol] 141 mmol/L 138 - 146 mmol/L [employer] Phone: Coding Summary.on 01-12-2019 Coding Summary. CODING DATE: 01/12/2019 FINAL [facility] STATUS: Home (Routine DC) PAYOR: [...] mass index (BMI) 34.0-34.9, adult Z79.899 Other custodial (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 However, the narrative phrase printed from the coding software may appear abbreviated, or result in slightly different terminology. Coded By: Luz Judd Date Saved: 01/12/2019 10:25 am [facility] Coding Summary. 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 However, the narrative phrase printed from the coding software may appear abbreviated, or result in slightly different terminology. Revised Coded By: Luz Judd Revised Date Saved: 01/12/2019 10:25 am [facility] XR Chest 2 Viewson 9 XR Chest [...] M.D. Transcribed by: BILL Technologist: ZOILA Normal [facility] Auto Diffon 01-11-2019 Basophils/100 WBC (Bld) 0.8 % Normal 0.0-2.0 [facility] Comment on above: Order Comment: Order Added by Discern Expert. Performed By: #### 1 [id number], 4171662, 0260876, 1118755, 36488045, 8217276, 5206207, 6783247, 9477143, 93019351, 0663830 #### [facility] [address] [place] [address] Basophils/Leukocytes Auto (Bld) [Pure # fraction] 0.1 E9/L Normal 0.0-0.2 [facility] Comment on above: Order Comment: Order Added by Discern Expert. Performed By: #### 1 [id number], 8009799, 5857290, 8505969, 90741841, 4828693, 7250737, 0732855, 3120220, 22425796, 5506009 #### [facility] [address] [place] [address] Eosinophils/100 WBC (Bld) 1.9 % Normal 0.0-8.0 [facility] Comment on above: Order Comment: Order Added by Discern Expert. Performed By: #### 1 [id number], 5588104, 9996172, 2828632, 83937018, 6675273, 0987697, 0753296, 1926096, 02139681, 4541907 #### [facility] [address] [place] [address] Eosinophils/Leukocytes Auto (Bld) [Pure # fraction] 0.1 E9/L Normal 0.0-0.5 [facility] Comment on above: Order Comment: Order Added by Discern Expert. Performed By: #### 1 3490270, 2592911, 8963590, 4672194, 19547671, 4568344, 6632288, 5601479, 0130538, 48873266, 6870752 #### [facility] [address] [place] [address] Lymphocytes/100 WBC (Bld) 28.0 % Normal 14.0-50.0 [facility] Comment on above: Order Comment: Order Added by Discern Expert. Performed By: #### 1 9991264, 6346132, 3493132, 4751231, 53491605, 0718685, 0203500, 3499215, 9778852, 03213712, 7049642 #### [facility] [address] [place] [address] Lymphocytes/Leukocytes Auto (Bld) [Pure # fraction] 2.2 E9/L Normal 1.0-4.0 [facility] Comment on above: Order Comment: Order Added by Discern Expert. Performed By: #### 1 8863359, 0902985, 9197472, 9338716, 97254284, 7946957, 9818555, 2405966, 6552069, 81550576, 4547527 #### [facility] [address] [place] [address] Monocytes/100 WBC (Bld) 7.0 % Normal 4.0-14.0 [facility] Comment on above: Order Comment: Order Added by Discern Expert. Performed By: #### 1 2952737, 7873411, 9991925, 9219604, 40745545, 0581105, 2673517, 5259996, 4258608, 37231618, 3212266 #### [facility] [address] [place] [address] Monocytes/Leukocytes Auto (Bld) [Pure # fraction] 0.6 E9/L Normal 0.2-1.0 [facility] Comment on above: Order Comment: Order Added by Discern Expert. Performed By: #### 1 5867187, 8639835, 3226717, 8480880, 39187043, 1649808, 7061683, 8853696, 2821377, 87691912, 3929886 #### [facility] [address] [place] [address] Neutrophils/100 WBC (Bld) 62.3 % Normal 36.0-75.0 [facility] Comment on above: Order Comment: Order Added by Discern Expert. Performed By: #### 1 6276025, 8248187, 2726262, 3518395, 09521502, 1352509, 9922841, 1698476, 7977450, 71160895, 6775667 #### [facility] [address] [place] [address] Neutrophils/Leukocytes Auto (Bld) [Pure # fraction] 4.9 E9/L Normal 2.0-7.5 [facility] Comment on above: Order Comment: Order Added by Discern Expert. Performed By: #### 1 1481598, 3377547, 4833898, 7689715, 41512561, 7208564, 6137223, 0138339, 6040029, 45184355, 0956832 #### [facility] [address] [place] [address] BMPon 01-11-2019 Creatinine [Mass/Vol] 0.7 mg/dL Normal 0.5-1.3 [facility] Comment on above: Performed By: #### 1 8030841, 7775488, 1684540, 8343727, 56361704, 4056944, 4251634, 9642512, 4854406, 88941241, 3383487 #### [facility] [address] [place] [address] Urea nitrogen [Mass/Vol] 11 mg/dL Normal 5-21 [facility] Comment on above: Performed By: #### 1 5730125, 3545646, 8076912, 2773315, 31191632, 7783300, 9861406, 4738650, 7854529, 91074333, 8836260 #### [facility] [address] [place] [address] Urea nitrogen/Creatinine [Mass ratio] 16 No Units Normal 10-20 [facility] Comment on above: Performed By: #### 1 4211596, 9378228, 0086498, 7527663, 49118254, 4757930, 6952723, 4624459, 4096466, 42702007, 9504250 #### [facility] [address] [place] [address] Anion gap [Moles/Vol] 14 mmol/L Normal 6-16 [facility] Comment on above: Performed By: #### 1 3873299, 2927068, 3384076, 8281463, 79729475, 1007531, 0297561, 8822884, 5704935, 71244782, 3359297 #### [facility] [address] [place] [address] Calcium [Mass/Vol] 8.9 mg/dL Normal 8.9-11.1 [facility] Comment on above: Performed By: #### 1 4624508, 0861749, 9020055, 5571032, 86597437, 7443606, 0543375, 5715746, 1051236, 14420521, 7075807 #### [facility] [address] [place] [address] Chloride [Moles/Vol] 107 mmol/L Normal 101-111 [facility] Comment on above: Performed By: #### 1 5064498, 9009734, 9233781, 3582188, 98225708, 4896382, 9679078, 7298236, 3025824, 19098796, 7182838 #### [facility] [address] [place] [address] CO2 [Moles/Vol] 22 mmol/L Normal 21-31 [facility] Comment on above: Performed By: #### 1 4403083, 2142757, 7637368, 4717756, 57292783, 4206425, 6358407, 8073727, 5565082, 03756269, 4423732 #### [facility] [address] [place] [address] Glucose [Mass/Vol] 122 mg/dL Normal 55-199 [facility] Comment on above: Result Comment: If t his glucose result represents a fasting glucose, interpretation should refer to the following reference range: 55-99 mg/dL Performed By: #### 1 4106963, 1613902, 4524068, 0713875, 80347940, 9021679, 8767631, 5417292, 5900628, 99557781, 9257499 #### [facility] [address] [place] [address] Potassium [Moles/Vol] 3.8 mmol/L Normal 3.5-5.3 [facility] Comment on above: Performed By: #### 1 6059504, 8085720, 3064056, 4951563, 50262272, 9869313, 2176689, 0314191, 9774867, 33370210, 3881573 #### [facility] [address] [place] [address] Sodium [Moles/Vol] 139 mmol/L Normal 135-145 [facility] Comment on above: Performed By: #### 1 8453375, 1231420, 2634094, 4064400, 25816283, 4709909, 6451975, 2677278, 5073582, 03766452, 6327302 #### [facility] [address] [place] [address] CBC w/ Auto Diffon 9 Erythrocyte distribution width (RBC) [Ratio] 14.0 % Normal 10.9-14.2 [facility] Comment on above: Performed By: #### 1 7871724, 4177614, 1347480, 8623172, 93008303, 1323451, 0660102, 0790507, 2952777, 04988224, 5625584 #### [facility] [address] [place] [address] Hematocrit (Bld) [Volume fraction] 39.9 % Normal 34.0-46.0 [facility] Comment on above: Performed By: #### 1 7287662, 1701474, 2254943, 8950306, 64395173, 4154517, 2989962, 4669584, 5602747, 47045019, 2256497 #### [facility] [address] [place] [address] Hemoglobin (Bld) [Mass/Vol] 13.5 g/dL Normal 12.0-16.0 [facility] Comment on above: Performed By: #### 1 5121610, 4042914, 3112102, 4272660, 32037042, 5814863, 8794770, 2243658, 6138159, 22057753, 3260484 #### [facility] [address] [place] [address] MCH (RBC) [Entitic mass] 29.4 pg Normal 27.0-34.0 [facility] Comment on above: Performed By: #### 1 5636000, 8920128, 8618533, 0848757, 70474421, 9050934, 7477667, 1969665, 1809135, 97317069, 8214515 #### [facility] [address] [place] [address] MCHC (RBC) [Mass/Vol] 33.7 g/dL Normal 33.3-35.7 [facility] Comment on above: Performed By: #### 1 6078199, 1748645, 3009379, 4738691, 12223362, 3808672, 3261695, 8219781, 6456509, 64242066, 8543142 #### [facility] [address] [place] [address] MCV (RBC) [Entitic vol] 87.4 fL Normal 80.0-100.0 [facility] Comment on above: Performed By: #### 1 0171739, 6420700, 5938919, 3198204, 89286125, 5751469, 7835016, 4090491, 0811230, 64974984, 0819643 #### [facility] [address] [place] [address] Platelet mean volume (Bld) [Entitic vol] 8.5 fL Normal 6.4-10.8 [facility] Comment on above: Performed By: #### 1 0481622, 5356348, 7215537, 8112261, 37910558, 8076882, 8263222, 3355307, 6906461, 87808819, 5915789 #### [facility] [address] [place] [address] Platelets (Bld) [#/Vol] 244.0 E9/L Normal 150.0-500.0 [facility] Comment on above: Performed By: #### 1 3876797, 8103379, 7120459, 7927907, 94010968, 9125093, 3518459, 4268746, 4271447, 00258446, 1423471 #### [facility] [address] [place] [address] RBC (Bld) [#/Vol] 4.6 E12/L Normal 4.3-5.9 [facility] Comment on above: Performed By: #### 1 2402948, 4599554, 8977579, 9623206, 87848397, 1472309, 0151791, 8718934, 6264865, 56295429, 1143675 #### [facility] [address] [place] [address] WBC corrected for nucl RBC Auto (Bld) [#/Vol] 7.9 E9/L Normal 4.0-11.0 [facility] Comment on above: Performed By: #### 1 4714487, 3995967, 2036226, 8429280, 57069508, 0949176, 1939626, 7621820, 7127306, 33812882, 9518586 #### [facility] [address] [place] [address] D-Dimeron 01-11-2019 Fibrin D-dimer FEU (PPP) [Mass/Vol] 265 ng/mL Normal 215-500 [facility] Comment on above: Result Comment: [...] infections Liver cirrhosis Performed By: #### 1 8193685, 8333784, 6960618, 9070107, 45734821, 8334320, 2287022, 5682326, 6057804, 18096330, 8626199 #### [facility] [address] [place] [address] ED Clinical Summaryon 2018 ED Clinical Summary [address] [address] ED Clinical Summary Person Information Name: ARIADNA HALEY [place] Age: 38 Years : 1980 12:00 AM Sex: Female Language: Sudanese PCP: Lady Mitchell DO Marital Status: Single Phone: [phone] Visit Id: Visit Reason: Chest pain; CHEST [...] 01/11/2019 6:42 PM 01/11/2019 6:42 PM ADDRESS: [address] [place] [phone] [facility] DOC NOTES: MEDICAL INFORMATION: Prescriptions Given: PATIENT EDUCATION INFORMATION: Instructions: Smoking Cessation; Chest Pain (Nonspecific) Follow up: With: Address: When: [place] [phone] Business (1) Within 2 to 3 days Comments: Return to ED if symptoms worsen DIAGNOSIS: 1:Chest pain Normal [facility] ED Note-Physicianon 01-12-20 19 ED [...] prescription medications Follow-up With When Contact Information [facility] Within 2 to 3 days [address] [place] [address]- [facility] (1) Additional Instructions: Return to ED if [...] Lymph Auto: 28 % (01/11/19 16:46:00 EDT) Sussex Auto: 7 % (01/11/19 16:46:00 EDT) Eos Auto: 1.9 % (01/11/19 16:46:00 EDT) Basophil Auto: 0.8 % (01/11/19 16:46:00 EDT) Neutro Absolute: 4.9 E9/L (01/11/19 16:46:00 EDT) Lymph Absolute: 2.2 E9/L (01/11/19 16:46:00 EDT) Sussex Absolute: 0.6 E9/L (01/11/19 16:46:00 EDT) Eos [...] Results EC01/11/19: SINUS RHYTHM RATE 84, NORMAL OR AND QRS, NO ST ELEVATION OR DEPRSSION, NORMAL AXIS, NORMAL QTC NORMAL ECG Signed By: Orin Browne DO 01/11/2019 15:54:18 Normal [facility] Comment on above: Result Comment: Stanford martinezally Signed By: Orin Browne DO\.br\Date and Time [...] and skin patches. Some may be available [id number]-zwtklem and others require a prescription. ? Antidepressant [...] Document Reviewed: 08/18/2012 ExitCare? Patient Information ?2014 [employer] [facility]. This information is not intended to [...] Document Reviewed: 12/13/2008 ExitCare? Patient Information ?2015 [employer]. This information is not intended to replace advice given to you by your health care provider. Make sure you discuss any questions you have with your health care provider. Normal [facility] ED Patient Summaryon 019 ED Patient Summary [place] [id number] Patient Discharge Instructions Person Information Name: ARIADNA HALEY Age: 38 Years Arrival Date: 01/11/2019 3:44 PM Discharge Diagnosis: 1:Chest pain Primary Care Physician: Lady Mitchell DO Provider Information Primary Provider: Orin Browne DO Advanced Wood And Hardware Outfitter:None The exam and treatment you received in the Emergency Department were for an urgent problem and are not intended as complete care. It is important that you follow up with a doctor, nurse practitioner, or physician?s marketing operations assistant for ongoing care. If your symptoms become worse or you do not improve as expected and you are unable to reach your usual health care provider, you should return to the Emergency Department. We are available 24 hours a day. ARIADNA HALEY has been given the following list of patient education materials, prescriptions and follow-up instructions: Follow-up Instructions: With: Address: When: Lady Mitchell [address] [place] [address] Business (1) Within 2 to 3 days [...] opioids can be used to help relieve ksbpumsu-rn-abushn pain and are often prescribed following a [...] be struggling with addiction, tell your health ocular care technologist and ask for guidance or call SAMHSA?S National Helpline at 9-144-549-REXO. q Source: [place] Department of Health and Human Services/Center for Disease Control & Prevention [facility] Medications Given: Medication Dose Route No medications found. Medication Information: Medications to Continue with No Changes Other Medications metformin (metformin 500 mg ER Tab) 250 Milligram By Mouth 2 times a day. Comment: Pharmacy Information: Thank you for choosing [facility] Patient Education Materials: Smoking Cessation Quitting smoking [...] and skin patches. Some may be available [id number]-[id number] and others require a prescription. ? Antidepressant [...] Document Reviewed: 08/18/2012 ExitCare? Patient Information ?2014 [employer]. This information is not intended to replace [...] Document Reviewed: 12/13/2008 ExitCare? Patient Information ?2014 [employer]. This information is not intended to replace advice given to you by your health care provider. Make sure you discuss any questions you have with your health care provider. TERA Dorantes NICOLE B , have received the following patient education materials/instruction s and have verbalized understanding: Patient Education Materials: Smoking Cessation; Chest Pain (Nonspecific) Follow-up Instructions: With: Address: When: [place] [phone] [facility] (1) Within 2 to 3 days Comments: Return to ED if symptoms worsen Prescriptions: Patient Signature Date Clinician/Nurse Signature Date 01/11/19 18:42:28 Normal [facility] Progress Note-Nurseon 2018 Progress Note-Nurse Pt explained discharge instructions and voiced understanding. Pt sts she will follow up with her PCP and denies any furthe questions at this time. Normal [facility] Troponin 0 Hr.on 01-11-2019 Troponin I.cardiac [Mass/Vol] ng/mL Normal <=0.03 [facility] Comment on above: Result Comment: New Troponin Assay 10/05/13 KRISHNA OR Cutoff value > or = 0.03 ng/mL in conjunction with clinical conditions of myocardial infarction. (www.escardio.org/guidelines) Performed By: #### 1 7579551, 3770096, 1127809, 5247323, 35018388, 8145466, 7801789, 7655570, 1442619, 46049769, 5952312 #### [facility] [address] [place] [address] eGFRon 01-11-2019 GFR/1.73 sq M predicted among blacks MDRD (S/P/Bld) [Vol rate/Area] mL/min/{1.73_m2} Normal >=59 [facility] Comment on above: Order Comment: Order added by Discern Expert. Result Comment: eGFR is race adjusted. AA=. Performed By: #### 1 9371941, 2244714, 5737695, 7660641, 79926665, 5900862, 7684063, 6406552, 6144303, 24410981, 1539693 #### [facility] [address] [place] [address] GFR/1.73 sq M predicted among non-blacks MDRD (S/P/Bld) [Vol rate/Area] mL/min/{1.73_m2} Normal >=59 [facility] Comment on above: Order Comment: Order added by Discern Expert. Result Comment: Executive Housekeeper anthony kidney disease could be indicated at eGFR's of less than 60 mL/min/1.73m2. Kidney failure is indicated at less than 15 mL/min/1.73m2. Performed By: #### 1 4707140, 2168915, 1055977, 8411944, 10412727, 6969615, 7087415, 0416710, 1228547, 60112235, 6577886 #### [facility] [address] [place] [address] SPINE, LUMBOSACRAL CMPLT(TOOTIE DING)on 12-05-2018 SPINE, LUMBOSACRAL CMPLT(BENDING) Patient Name: ARIADNA HALEY STUDY: SPINE, LUMBOSACRAL; CMPLT(BENDING); 12/05/2018 1:47 pm INDICATION: LUMBAR XR. COMPARISON: None. ACCESSION NUMBER(S): [id number] ORDERING CLINICIAN: KADE RICHARDSON FINDINGS: No lumbar spine fracture. Scattered small endplate osteophytes. Vertebral body and disc space heights are are maintained. 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 No spondylolisthesis. No instability on flexion or extension. IMPRESSION: Degenerative changes of the lumbar spine without instability. Electronically signed by: EARNESTINE MANUEL MD [facility] Coding Summary.on 09-15-2018 Coding Summary. 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 However, the narrative phrase printed from the coding software may appear abbreviated, or result in slightly different terminology. Coded By: Luz Judd Date Saved: 09/15/2018 07:15 am Normal [facility] Auto Diffon 09-14-2018 Basophils/100 WBC (Bld) 0.6 % Normal 0.0-2.0 [facility] Comment on above: Order Comment: Order Added by Discern Expert. Performed By: #### 1 9630024, 5056380, 2033594, 4745788, 50016893, 7503512, 7073866, 1281341, 5886741, 14639626, 5029981 #### [facility] [address] [place] [address] Basophils/Leukocytes Auto (Bld) [Pure # fraction] 0.1 E9/L Normal 0.0-0.2 [facility] Comment on above: Order Comment: Order Added by Discern Expert. Performed By: #### 1 7388645, 5174312, 4693005, 9399368, 68908678, 3976881, 2138800, 1474161, 6253342, 12625487, 5104401 #### [facility] [address] [place] [address] Eosinophils/100 WBC (Bld) 2.2 % Normal 0.0-8.0 [facility] Comment on above: Order Comment: Order Added by Discern Expert. Performed By: #### 1 6000483, 5607336, 1524659, 8988201, 09104700, 8685866, 7177876, 4508408, 3854766, 36692666, 3864853 #### [facility] [address] [place] [address] Eosinophils/Leukocytes Auto (Bld) [Pure # fraction] 0.2 E9/L Normal 0.0-0.5 [facility] Comment on above: Order Comment: Order Added by Discern Expert. Performed By: #### 1 1753552, 4302292, 5337671, 1476950, 63880376, 3861029, 7469761, 2007088, 4101229, 97004803, 2116497 #### [facility] [address] [place] [address] Lymphocytes/100 WBC (Bld) 30.6 % Normal 14.0-50.0 [facility] Comment on above: Order Comment: Order Added by Discern Expert. Performed By: #### 1 8978317, 5682055, 9413175, 3189218, 72341110, 1557644, 7303710, 5513134, 3933131, 40680816, 4434889 #### [facility] [address] [place] [address] Lymphocytes/Leukocytes Auto (Bld) [Pure # fraction] 3.0 E9/L Normal 1.0-4.0 [facility] Comment on above: Order Comment: Order Added by Discern Expert. Performed By: #### 1 5493353, 3188537, 3838318, 4618111, 47038417, 7317897, 2765823, 7407740, 3609337, 31288937, 7417819 #### [facility] [address] [place] [address] Monocytes/100 WBC (Bld) 7.2 % Normal 4.0-14.0 [facility] Comment on above: Order Comment: Order Added by Discern Expert. Performed By: #### 1 7585062, 8509600, 1388305, 8100031, 71602783, 0424761, 6777155, 1875397, 3848798, 54243198, 2951695 #### [facility] [address] [place] [address] Monocytes/Leukocytes Auto (Bld) [Pure # fraction] 0.7 E9/L Normal 0.2-1.0 [facility] Comment on above: Order Comment: Order Added by Discern Expert. Performed By: #### 1 9343625, 3878139, 4719943, 2294220, 59117180, 6230546, 2389138, 7969755, 4551754, 48388497, 0374410 #### [facility] [address] [place] [address] Neutrophils/100 WBC (Bld) 59.4 % Normal 36.0-75.0 [facility] Comment on above: Order Comment: Order Added by Discern Expert. Performed By: #### 1 0205575, 0756952, 9038365, 4497595, 01235907, 0860913, 6766460, 1604651, 2834990, 65704002, 3142945 #### [facility] [address] [place] [address] Neutrophils/Leukocytes Auto (Bld) [Pure # fraction] 5.9 E9/L Normal 2.0-7.5 [facility] Comment on above: Order Comment: Order Added by Discern Expert. Performed By: #### 1 4333768, 2004705, 2131894, 6825240, 28733177, 9821757, 1213017, 0140804, 7667434, 93381433, 0083008 #### [facility] [address] [place] [address] BMP 09-14-2018 Creatinine [Mass/Vol] 0.6 mg/dL Normal 0.5-1.3 [facility] Comment on above: Performed By: #### 1 1234751, 3834178, 6708501, 7388664, 35163259, 8469231, 2502652, 4511046, 4356067, 85629158, 5745851 #### [facility] [address] [place] [address] Urea nitrogen [Mass/Vol] 15 mg/dL Normal 5-21 [facility] Comment on above: Performed By: #### 1 1339679, 1874722, 1174370, 2550498, 62654088, 9914687, 8893030, 8688677, 2137240, 97957337, 1929774 #### [facility] [address] [place] [address] Urea nitrogen/Creatinine [Mass ratio] 25 No Units High 10-20 [facility] Comment on above: Performed By: #### 1 6831625, 8950828, 3279023, 8067140, 44836822, 1933019, 3323780, 8198064, 9845292, 40256099, 5362852 #### [facility] [address] [place] [address] Anion gap [Moles/Vol] 13 mmol/L Normal 6-16 [facility] Comment on above: Performed By: #### 1 4265191, 6625086, 1247330, 2322407, 82884706, 9319252, 8076874, 2978804, 8378532, 52023395, 9757389 #### [facility] [address] [place] [address] Calcium [Mass/Vol] 9.5 mg/dL Normal 8.9-11.1 [facility] Comment on above: Performed By: #### 1 8471539, 4935061, 8927882, 3388935, 48612885, 7174601, 8476138, 0162890, 4017050, 44655462, 3740541 #### [facility] [address] [place] [address] Chloride [Moles/Vol] 103 mmol/L Normal 101-111 [facility] Comment on above: Performed By: #### 1 8317082, 6399380, 4867183, 1718864, 62706762, 4950720, 3432830, 8520804, 4393099, 86176837, 2757657 #### [facility] [address] [place] [address] CO2 [Moles/Vol] 24 mmol/L Normal 21-31 [facility] Comment on above: Performed By: #### 1 9914861, 3495243, 2050790, 9310590, 37047918, 2571854, 7709931, 9551599, 3573327, 04232487, 9750815 #### [facility] [address] [place] [address] Glucose [Mass/Vol] 102 mg/dL Normal 55-199 [facility] Comment on above: Result Comment: If t his glucose result represents a fasting glucose, interpretation should refer to the following reference range: 55-99 mg/dL Performed By: #### 1 6721373, 2230918, 3999751, 6461361, 24263075, 5844618, 3543044, 9250070, 7217991, 28597688, 3921684 #### [facility] [address] [place] [address] Potassium [Moles/Vol] 3.6 mmol/L Normal 3.5-5.3 [facility] Comment on above: Performed By: #### 1 3885049, 1291600, 7913471, 3955689, 34086097, 1906765, 2156922, 3894209, 9347506, 84307155, 8171298 #### [facility] [address] [place] [address] Sodium [Moles/Vol] 136 mmol/L Normal 135-145 [facility] Comment on above: Performed By: #### 1 3591144, 8122809, 1876620, 6998507, 64255704, 7359790, 1246780, 0615702, 5164039, 88152559, 9292557 #### [facility] [address] [place] [address] CBC w/ Auto Diffon 9 Erythrocyte distribution width (RBC) [Ratio] 14.2 % Normal 10.9-14.2 [facility] Comment on above: Performed By: #### 1 2815938, 1881958, 7345034, 1549269, 65422156, 0302252, 6406736, 6082412, 4194886, 61966783, 5263032 #### [facility] [address] [place] [address] Hematocrit (Bld) [Volume fraction] 39.4 % Normal 34.0-46.0 [facility] Comment on above: Performed By: #### 1 7605841, 1193734, 3953168, 7994184, 59846207, 2925346, 8033934, 9800836, 5675374, 40651776, 9485351 #### [facility] [address] [place] [address] Hemoglobin (Bld) [Mass/Vol] 13.3 g/dL Normal 12.0-16.0 [facility] Comment on above: Performed By: #### 1 0823485, 0702478, 7413142, 4480046, 64653138, 2456861, 7735424, 6792380, 2891267, 80022634, 2732134 #### [facility] [address] [place] [address] MCH (RBC) [Entitic mass] 29.2 pg Normal 27.0-34.0 [facility] Comment on above: Performed By: #### 1 3806948, 6481454, 2523217, 6762753, 87160844, 9116327, 4165845, 7590161, 4377449, 67440307, 6204469 #### [facility] [address] [place] [address] MCHC (RBC) [Mass/Vol] 33.8 g/dL Normal 33.3-35.7 [facility] Comment on above: Performed By: #### 1 7564990, 5727580, 6857234, 8845365, 27791917, 5297020, 2763044, 5021599, 3259268, 91147455, 2107441 #### [facility] [address] [place] [address] MCV (RBC) [Entitic vol] 86.6 fL Normal 80.0-100.0 [facility] Comment on above: Performed By: #### 1 5183730, 0199924, 7675706, 5424051, 46814207, 5819583, 1860260, 7887808, 8669142, 55430671, 9045037 #### [facility] [address] [place] [address] Platelet mean volume (Bld) [Entitic vol] 8.8 fL Normal 6.4-10.8 [facility] Comment on above: Performed By: #### 1 3859618, 1920578, 8945344, 6959971, 49993961, 3055455, 3564823, 1329228, 6799740, 06422007, 4769237 #### [facility] [address] [place] [address] Platelets (Bld) [#/Vol] 307.0 E9/L Normal 150.0-500.0 [facility] Comment on above: Performed By: #### 1 6286989, 4652611, 9908554, 7487225, 60211930, 3002181, 9496504, 4686195, 3559233, 79888129, 2241048 #### [facility] [address] [place] [address] RBC (Bld) [#/Vol] 4.6 E12/L Normal 4.3-5.9 [facility] Comment on above: Performed By: #### 1 7676527, 0046180, 4856198, 9112786, 10197642, 6487554, 4539518, 5357927, 7319838, 27218071, 1219300 #### [facility] [address] [place] [address] WBC corrected for nucl RBC Auto (Bld) [#/Vol] 9.9 E9/L Normal 4.0-11.0 [facility] Comment on above: Performed By: #### 1 3321113, 7133384, 9352254, 5510599, 06839903, 4599313, 5721983, 1658596, 1654583, 12237975, 1360372 #### [facility] [address] [place] [address] CKon 09-14-2018 CK [Catalytic activity/Vol] 53 Int._Unit/L Normal 14-261 [facility] Comment on above: Performed By: #### 1 3051557, 8664427, 6018104, 1309781, 42839865, 8073674, 2174801, 2794536, 5104410, 51726901, 0088918 #### [facility] [address] [place] [address] ED Clinical Summaryon 2018 ED Clinical Summary [address] [address] ED Clinical Summary Person Information Name: ARIADNA HALEY Melissa Roger/[facility] Age: 37 Years : 1980 12:00 AM Sex: Female Language: Sudanese PCP: Lady Mitchell DO Marital Status: Single Phone: [phone] Visit Id: Visit Reason: Anxiety; Paraesthesia; NUMBNESS [...] 09/14/2018 12:17 AM 09/14/2018 12:17 AM ADDRESS: [address] [place] [address] [place] [id number] PHYS DOC NOTES: MEDICAL INFORMATION: Prescriptions Given: Prescription Display gabapentin (gabapentin 100 mg Cap) 100 mg = 1 cap(s), Oral, Daily, X 7 day(s), # 7 cap(s), Refills(s) 0, Pharmacy: [facility] #24 gabapentin (gabapentin 100 mg Cap) 100 mg = 1 cap(s), Oral, Daily, X 7 day(s), # 7 cap(s), Refills(s) 0, Pharmacy: [facility]/pharmacy #6177 magnesium oxide (magnesium oxide 400 mg Tab) 400 mg = 1 tab(s), Oral, Daily, X 7 day(s), # 7 tab(s), Refills(s) 0, Pharmacy: [facility] #24 magnesium oxide (magnesium oxide 400 mg Tab) 400 mg = 1 tab(s), Oral, Daily, X 7 day(s), # 7 tab(s), Refills(s) 0, Pharmacy: [facility]/pharmacy #6177 Home Meds Display metformin (metformin 500 mg ER Tab) 250 mg, Oral, BID, Refills(s) 0 PATIENT EDUCATION INFORMATION: Instructions: Paresthesia, Jhlu-zi-Ywnb; Restless Legs Syndrome Follow up: With: Address: When: Sayda Kelley [address] [address] Business (1) Within 1 to 2 days Comments: neurologist you may also follow up with him With: Address: When: [address] [address] Business (1) Within 1 to 2 days Comments: Return to ED if symptoms worsen DIAGNOSIS: 1:Restless leg syndrome Normal [facility] ED Note-Nursingon 09-14-2018 ED Note-Nursing Pt up to RR, gait steady. Normal [facility] ED Note-Nursing Aware of need for urine specimen, denies urge at present, states will notify when able to produce sample, will monitor. Normal [facility] ED Note-Physicianon 09-14-20 19 ED Note-Physician Basic Information Time Seen: [...] day(s), # 7 cap(s), Refills(s) 0, Pharmacy: [id number] magnesium oxide, 400 mg = 1 tab(s), Oral, Daily, X 7 day(s), # 7 tab(s), Refills(s) 0, Pharmacy: [id number] Sodium Chloride 0.9% intravenous solution 1,000 [...] Sayda Kelley Within 1 to 2 [address]aryn [address] [place] [address]- Business (1) Additional Instructions: neurologist you may also follow up with him Lady Mitchell Within 1 to 2 days [address] [place] [address]- Business (1) Additional Instructions: Return to ED if symptoms worsen Patient Education Paresthesia, Prfw-db-Tyma Restless Legs Syndrome Problem List/Past Medical History [...] Lymph Auto: 30.6 % (09/13/18 23:03:00 EDT) [place] Auto: 7.2 % (09/13/18 23:03:00 EDT) Eos Auto: 2.2 % (09/13/18 23:03:00 EDT) Basophil Auto: 0.6 % (09/13/18 23:03:00 EDT) Neutro Absolute: 5.9 E9/L (09/13/18 23:03:00 EDT) Lymph Absolute: 3 E9/L (09/13/18 23:03:00 EDT) [place] Absolute: 0.7 E9/L (09/13/18 23:03:00 EDT) Eos [...] Diagnostic Results No qualifying data available. Normal [facility] Comment on above: Result Comment: [...] Document Reviewed: 01/29/2012 ExitCare? Patient Information ?2015 [employer] [facility]. This information is not intended to [...] ? Drawing. ? Crawling. ? [place]. ? [place]. ? Tingling. ? Pins and needles. ? [...] Document Reviewed: 08/06/2011 ExitCare? Patient Information ?2014 [employer]. This information is not intended to replace advice given to you by your health care provider. Make sure you discuss any questions you have with your health care provider. Normal [facility] ED Patient Summaryon 019 ED Patient Summary [place] [id number] Patient Discharge Instructions Person Information Name: ARIADNA HALEY Age: 37 Years Arrival Date: 09/13/2018 10:16 PM Discharge Diagnosis: 1:Restless leg syndrome Primary Care Physician: Lady Mitchell DO Provider Information Primary Provider: Génesis Lozoya DO Advanced Wood And Hardware Outfitter:None The exam and treatment you received in the Emergency Department were for an urgent problem and are not intended as complete care. It is important that you follow up with a doctor, nurse practitioner, or physician?s marketing operations assistant for ongoing care. If your symptoms become worse or you do not improve as expected and you are unable to reach your usual health care provider, you should return to the Emergency Department. We are available 24 hours a day. ARIADNA HALEY has been given the following list of patient education materials, prescriptions and follow-up instructions: Follow-up Instructions: With: Address: When: Sayda Kelley [address] [address] Business (1) Within 1 to 2 days Comments: neurologist you may also follow up with him With: Address: When: Lady Mitchell [address] [place] [address] Business (1) Within 1 to 2 days Comments: Return to ED if symptoms worsen In the event that this physician does not participate in your insurance network, please consult with your insurance company to find a nearby participating provider. Patient Education Materials: Paresthesia, Aqkg-kq-Qdie; Restless Legs Syndrome A MESSAGE TO ALL PATIENTS REGARDING OPIOIDS PRESCRIPTION OPIOIDS: WHAT YOU NEED TO KNOW Prescription opioids can be used to help relieve jouzpngp-bl-kdwnub pain and are often prescribed following a [...] be struggling with addiction, tell your health ocular care technologist and ask for guidance or call [facility]?S National Helpline at 3-575-905-RPSG. v Source: US Department of Health and Human Services/Center for Disease Control & Prevention [facility] Medications Given: Medication Dose Route Sodium Chloride 0.9% intravenous solution 1000.00 mL Initial Volume 1000.00 mL/hr IV Piggyback Left Mid Forearm Medication Information: New Medications [id number], [address], [place] [id number], [phone] gabapentin (gabapentin 100 mg Cap) 1 Capsules By Mouth every day for 7 Days. Refills: 0. magnesium oxide (magnesium oxide 400 mg Tab) 1 Tabs By Mouth every day for 7 Days. Refills: 0. [facility], [address], [place] [id number], [phone] gabapentin (gabapentin 100 mg Cap) 1 Capsules By Mouth every day for 7 Days. Refills: 0. magnesium oxide (magnesium oxide 400 mg Tab) 1 Tabs By Mouth every day for 7 Days. Refills: 0. Medications to Continue with No Changes Other Medications metformin (metformin 500 mg ER Tab) 250 Milligram By Mouth 2 times a day. Comment: Pharmacy Information: Thank you for choosing [facility] Patient Education Materials: Paresthesia Paresthesia is a [...] Document Reviewed: 01/29/2012 ExitCare? Patient Information ?2015 [employer]. This information is not intended to replace [...] ? Drawing. ? Crawling. ? [place]. ? [place]. ? Tingling. ? Pins and needles. ? [...] Document Reviewed: 08/06/2011 ExitCare? Patient Information ?2015 [employer]. This information is not intended to replace advice given to you by your health care provider. Make sure you discuss any questions you have with your health care provider. TERA Dorantes NICOLE B , have received the following patient education materials/instruction s and have verbalized understanding: Patient Education Materials: Paresthesia, Aaup-jp-Agsj; Restless Legs Syndrome Follow-up Instructions: With: Address: When: Sayda Kelley [address] [address] People Pattern (1) Within 1 to 2 days Comments: neurologist you may also follow up with him With: Address: When: [facility] [address] [place] [address] People Pattern (1) Within 1 to 2 days Comments: Return to ED if symptoms worsen Prescriptions: [gabapentin (gabapentin 100 mg Cap)] [gabapentin (gabapentin 100 mg Cap)] [magnesium oxide (magnesium oxide 400 mg Tab)] [magnesium oxide (magnesium oxide 400 mg Tab)] Patient Signature Date Clinician/Nurse Signature Date 09/14/18 00:21:38 Normal [facility] Hep Func Panelon 09-14-2018 Bilirubin.direct [Mass/Vol] UTC Abnormal 0.1-0.9 [facility] Comment on above: Result Comment: Resu lt verified by Discern Rule. Performed result UTC (Unable to Calculate) was sent as an Alpha code due the inability to calculate a valid numeric value. Performed By: #### 1 5322006, 1842432, 3967940, 5828864, 23496181, 4932351, 8080323, 1193233, 9694632, 86547171, 2500121 #### [facility] [address] [place] [address] Albumin [Mass/Vol] 1.1 g/dL Normal 1.1-2.2 [facility] Comment on above: Performed By: #### 1 6109091, 2819545, 0839690, 1388088, 52850082, 4671534, 7446467, 0899013, 1943946, 46342656, 3458460 #### [facility] [address] [place] [address] Albumin [Mass/Vol] 4.1 g/dL Normal 3.3-5.0 [facility] Comment on above: Performed By: #### 1 9883253, 8126041, 4993061, 1003627, 29132651, 2995535, 7185475, 7581410, 3154410, 68518195, 8722221 #### [facility] [address] [place] [address] ALP [Catalytic activity/Vol] 69 Int._Unit/L Normal 21-98 [facility] Comment on above: Performed By: #### 1 0162749, 9605999, 3279984, 7710725, 72878340, 1904055, 9457040, 9742295, 9313369, 07460363, 3879482 #### [facility] [address] [place] [address] ALT No additional P-5'-P [Catalytic activity/Vol] 27 Int._Unit/L Normal 6-46 [facility] Comment on above: Performed By: #### 1 9180805, 4262763, 7840107, 3672442, 84784964, 2568503, 5115944, 7723638, 2058109, 85331476, 2721278 #### [facility] [address] [place] [address] AST [Catalytic activity/Vol] 16 Int._Unit/L Normal 5-43 [facility] Comment on above: Performed By: #### 1 3686344, 3353066, 8611304, 8987864, 99557309, 3426493, 0436192, 1191198, 5630700, 01947573, 5445868 #### [facility] [address] [place] [address] Bilirubin [Mass/Vol] 0.5 mg/dL Normal 0.0-1.1 [facility] Comment on above: Performed By: #### 1 7155678, 6876621, 2652888, 0372109, 69961767, 2271145, 6338436, 7206490, 3376832, 99780671, 0655177 #### [facility] [address] [place] [address] Bilirubin.direct [Mass/Vol] mg/dL Normal 0.1-0.4 [facility] Comment on above: Performed By: #### 1 4765747, 4571533, 9551527, 9991241, 12386944, 2277566, 6184403, 5475165, 4996457, 90527967, 5509052 #### [facility] [address] [place] [address] Globulin (S) [Mass/Vol] 3.7 g/dL Normal 1.4-4.0 [facility] Comment on above: Performed By: #### 1 6366119, 8690964, 0051749, 4259389, 89884502, 2772279, 6740440, 6927317, 4255974, 94213774, 1239311 #### [facility] [address] [place] [address] Protein [Mass/Vol] 7.8 g/dL Normal 6.0-7.8 [facility] Comment on above: Performed By: #### 1 6895513, 4491826, 4681218, 6996470, 20298269, 7734426, 6184383, 0440548, 5974803, 60660507, 8892324 #### [facility] [address] [place] [address] Magnesiumon 09-14-2018 Magnesium [Mass/Vol] 1.9 mg/dL Normal 1.3-2.4 [facility] Comment on above: Performed By: #### 1 6071018, 4881088, 5155295, 0879621, 17752032, 2672198, 0789161, 3667655, 2791275, 81670936, 0296226 #### [facility] [address] [place] [address] Myoglobinon 09-14-2018 Myoglobin [Mass/Vol] 9 ng/mL Normal <=69 [facility] Comment on above: Performed By: #### 1 1998601, 1799718, 2282563, 3420611, 88008469, 6080788, 9100679, 4923993, 7995881, 40181786, 0314087 #### [facility] [address] [place] [address] PT & PTTon 09-14-2018 aPTT Coag (PPP) [Time] 34.5 second(s) Normal 25.1-36.5 [facility] Comment on above: Result Comment: Hepa rin therapeutic range (represented by Anti-Factor Xa activity of 0.2 - 0.4 U/mL) corresponds to PTT of 56.6 - 109.0 sec. Performed By: #### 1 6402349, 7328627, 7130805, 3153464, 13814408, 1324028, 9660047, 8489909, 1256694, 47964217, 0233997 #### [facility] [address] [place] [address] INR Coag (PPP) [Relative time] 1.0 {INR} [facility] Comment on above: Result Comment: INR results are specifically intended to assess patients stabilized on long-term Anticoagulation therapy suggested INR?s ?Less Intensive Anticoagulation? 2.0 ? 3.0 Conventional Range 3.0 ? 4.5 Performed By: #### 1 8226448, 8170306, 1459230, 3588219, 48896764, 6158572, 4110146, 9763523, 8764094, 91888536, 3618658 #### [facility] [address] [place] [address] PT Coag (PPP) [Time] 11.2 second(s) Normal 10.2-12.9 [facility] Comment on above: Performed By: #### 1 6877801, 1091100, 1837088, 3380702, 78778038, 3273776, 8331353, 2701309, 2036840, 35977618, 3725164 #### [facility] [address] [place] [address] Phosphoruson 09-14-2018 Phosphate [Mass/Vol] 3.8 mg/dL Normal 1.9-4.6 [facility] Comment on above: Performed By: #### 1 9293172, 7858180, 8993943, 6371203, 99565236, 6345678, 5123150, 7928256, 4942833, 86924019, 7342588 #### [facility] [address] [place] [address] Troponin 0 Hr.on 09-14-2018 Troponin I.cardiac [Mass/Vol] ng/mL Normal <=0.03 [facility] Comment on above: Result Comment: New Troponin Assay 10/05/13 KRISH[place] OR Cutoff value > or = 0.03 ng/mL in conjunction with clinical conditions of myocardial infarction. ([email or web address]) Performed By: #### 1 6206752, 8767804, 6885088, 4350543, 90472926, 8680419, 4801543, 3705281, 9574593, 53178843, 5216770 #### [facility] [address] [place] [address] UA With Cult Reflexon 2018 Bacteria LM Ql (Urine sed) TRACE Normal Trace [facility] Comment on above: Performed By: #### 1 9994889, 9567007, 1586883, 8124864, 54980049, 5731434, 5766968, 1506918, 3154222, 26506473, 1986987 #### [facility] [address] [place] [address] Bilirubin Ql (U) Negative Normal Negative [facility] Comment on above: Performed By: #### 1 8259959, 7390233, 5549770, 6018370, 12163706, 5404105, 1929526, 8047116, 7882462, 47060943, 1212428 #### [facility] [address] [place] [address] Clarity (U) CLEAR Normal Clear [facility] Comment on above: Performed By: #### 1 4193386, 7822149, 6135667, 3902702, 17241478, 4122768, 9367700, 0008513, 1755746, 71481029, 6288256 #### [facility] [address] [place] [address] Color (U) YELLOW Normal Yellow [facility] Comment on above: Performed By: #### 1 0400989, 7581671, 2245121, 5625574, 53632578, 7644615, 8942372, 4661305, 7335154, 09360287, 0181399 #### [facility] [address] [place] [address] Epithelial cells.squamous LM.HPF (Urine sed) [#/Area] 0-2 Normal 0-2 [facility] Comment on above: Performed By: #### 1 7139570, 1186542, 4025145, 6355114, 58417856, 4025060, 2256268, 8765537, 8618425, 65070259, 1787397 #### [facility] [address] [place] [address] Glucose Test strip (U) [Mass/Vol] Negative Normal Negative [facility] Comment on above: Performed By: #### 1 0443532, 8906709, 4136037, 9836191, 04959888, 1875230, 7215968, 6342452, 3525232, 83732493, 9520158 #### [facility] [address] [place] [address] Hemoglobin Ql (U) Negative Normal Negative [facility] Comment on above: Performed By: #### 1 8586587, 1169062, 5974895, 7383434, 46846640, 6245234, 9338104, 4586537, 4063025, 12807485, 2773499 #### [facility] [address] [place] [address] Ketones (U) [Mass/Vol] Negative Normal Negative [facility] Comment on above: Performed By: #### 1 9954356, 1011357, 0607640, 0047039, 22757855, 2479142, 8508961, 7525024, 9745106, 54415705, 3568680 #### [facility] [address] [place] [address] [place].plasma/[place] .RBC (Bld) [Mass ratio] 0-3 Normal 0-3 [facility] Comment on above: Performed By: #### 1 9941693, 2378677, 1124411, 3531195, 47188402, 9511796, 7063010, 9428352, 9471744, 14413187, 8947203 #### [facility] [address] [place] [address] Mucus Ql (Urine sed) TRACE Normal [facility] Comment on above: Performed By: #### 1 0184407, 3909181, 1381530, 7191417, 89209735, 4434896, 3883212, 3964648, 4091154, 80003194, 3077611 #### [facility] [address] [place] [address] Nitrite Ql (U) Negative Normal Negative [facility] Comment on above: Performed By: #### 1 6809452, 9975433, 0102696, 0076319, 86278647, 7291640, 0043931, 1351670, 9889927, 63790885, 9484667 #### [facility] [address] [place] [address] pH (U) 6.0 [pH] 5.0-9.0 [facility] Comment on above: Performed By: #### 1 1278831, 3346039, 9646796, 3053497, 42492137, 2306579, 2683724, 0920610, 0722927, 41626175, 1450554 #### [facility] [address] [place] [address] Protein (U) [Mass/Vol] Negative Normal Negative [facility] Comment on above: Performed By: #### 1 3579213, 5395928, 5893171, 4311063, 05279539, 2380522, 7875049, 8997849, 0463619, 51194972, 7319393 #### [facility] [address] [place] [address] Specific gravity (U) [Rel density] 1.010 1.005-1.030 [facility] Comment on above: Performed By: #### 1 3734367, 4805167, 6982285, 3734185, 81762611, 3522331, 7606509, 5994118, 9326326, 00164370, 3315973 #### [facility] [address] [place] [address] UA Spec Desc Clean Catch Normal [facility] Comment on above: Performed By: #### 1 7526691, 5590219, 5359520, 0125861, 09052031, 9377520, 9451400, 6855255, 4256654, 33657433, 0110521 #### [facility] [address] [place] [address] Urobilinogen Qn (U) 0.2 {Carmella'U}/dL Normal 0.0-1.0 [facility] Comment on above: Performed By: #### 1 8761127, 6023909, 2788180, 3234438, 52435305, 0113486, 7388253, 1778102, 9739862, 25734687, 7797827 #### [facility] [address] [place] [address] WBC Auto Ql (U) Negative Normal Negative [facility] Comment on above: Performed By: #### 1 9377106, 1084243, 8623961, 4286520, 40734210, 8869166, 3215289, 8645044, 1038165, 52099768, 0889015 #### [facility] [address] [place] [address] WBC LM.HPF (Urine sed) [#/Area] 0-5 Normal 0-5 [facility] Comment on above: Performed By: #### 1 2827460, 1935513, 8605681, 3963302, 92925357, 9239002, 9374405, 0922383, 6542307, 73469990, 2596228 #### [facility] [address] [place] [address] XR Chest Single Viewon 09-14 XR Chest [...] Sanjay Alcocer M.D. Transcribed by: minoo Technologist: JESSICA Normal [facility] XR FOOT LEFT (MIN 3 VIEWS)on 09-14-2018 XR FOOT LEFT (MIN 3 VIEWS) Radiology exam is complete. No Radiologist dictation. Please follow up with ordering provider. Final result Normal [place] XR FOOT RIGHT (MIN 3 VIEWS)o n 09-14-2018 XR FOOT RIGHT (MIN 3 VIEWS) Radiology exam is complete. No Radiologist dictation. Please follow up with ordering provider. Final result Normal [place] eGFRon 09-14-2018 GFR/1.73 sq M predicted among blacks MDRD (S/P/Bld) [Vol rate/Area] mL/min/{1.73_m2} Normal >=59 [facility] Comment on above: Order Comment: Order added by Discern Expert. Result Comment: eGFR is race adjusted. AA=. Performed By: #### 1 4778351, 3714079, 3689149, 8787196, 47371743, 4390885, 0774172, 2657837, 4574424, 93294287, 7075862 #### [facility] [address] [place] [address] GFR/1.73 sq M predicted among non-blacks MDRD (S/P/Bld) [Vol rate/Area] mL/min/{1.73_m2} Normal >=59 [facility] Comment on above: Order Comment: Order added by Discern Expert. Result Comment: Executive Housekeeper anthony kidney disease could be indicated at eGFR's of less than 60 mL/min/1.73m2. Kidney failure is indicated at less than 15 mL/min/1.73m2. Performed By: #### 1 8124846, 0060613, 0354000, 6174040, 12515560, 1450686, 6531057, 9710911, 2948787, 57808901, 1256861 #### [facility] [address] [place] [address] Vital Signs Date Time Vital Sign Value Performing Clinician Facility 05-19-2024 15:02-0500 Body temperature 97.3 [degF] Chair Bedford Work Phone: [facility] 05-19-2024 15:02-0500 Diastolic blood pressure 63 mm[Hg] Chair Gabbi Work Phone: [facility] 05-19-2024 15:02-0500 Heart rate 73 /min Chair Gabbi Work Phone: [facility] 05-19-2024 15:02-0500 Respiratory rate 20 /min Chair Gabbi Work Phone: [facility] 05-19-2024 15:02-0500 SaO2% (BldA) [Mass fraction] 98 % Chair Gabbi Work Phone: [facility] Comment on above: 05-19-2024 15:02-0500 Systolic blood pressure 114 mm[Hg] Chair Bedford Work Phone: [facility] 04-26-2024 09:31-0500 Body temperature 97.59 [degF] Ma Sand Work Phone: [facility] 04-26-2024 09:31-0500 Diastolic blood pressure 78 mm[Hg] Ma Sand Work Phone: [facility] Comment on above: Manual 04-26-2024 09:31-0500 Heart rate 66 /min Ma Sand Work Phone: [facility] 04-26-2024 09:31-0500 Respiratory rate 16 /min Ma Sand Work Phone: [facility] 04-26-2024 09:31-0500 SaO2% (BldA) [Mass fraction] 99 % Ma Sand Work Phone: [facility] 04-26-2024 09:31-0500 Systolic blood pressure 122 mm[Hg] Ma Sand Work Phone: [facility] Comment on above: Manual 04-10-2024 10:12-0500 Body height 170.2 cm Gordo Barfield MD Work Phone: [facility] 04-10-2024 10:12-0500 Body mass index (BMI) [Ratio] 44.95 kg/m2 Gordo Barfield MD Work Phone: [facility] 04-10-2024 10:12-0500 Body weight 130.18 kg Gordo Barfield MD Work Phone: [facility] 04-10-2024 10:12-0500 Diastolic blood pressure 70 mm[Hg] Gordo Barfield MD Work Phone: [facility] 04-10-2024 10:12-0500 Systolic blood pressure 110 mm[Hg] Gordo Barfield MD Work Phone: [facility] 04-06-2024 10:00-0500 Body height 170.2 cm Judy Arciniega MD Work Phone: [facility] 04-06-2024 10:00-0500 Body mass index (BMI) [Ratio] 43.07 kg/m2 Judy Arciniega MD Work Phone: [facility] 04-06-2024 10:00-0500 Body temperature 97 [degF] Judy Arciniega MD Work Phone: [facility] 04-06-2024 10:00-0500 Body weight 124.74 kg Judy Arciniega MD Work Phone: [facility] 04-06-2024 10:00-0500 Diastolic blood pressure 80 mm[Hg] Judy Arciniega MD Work Phone: [facility] 04-06-2024 10:00-0500 Heart rate 86 /min Judy Arciniega MD Work Phone: [facility] 04-06-2024 10:00-0500 SaO2% (BldA) [Mass fraction] 97 % Judy Arciniega MD Work Phone: [facility] 04-06-2024 10:00-0500 Systolic blood pressure 136 mm[Hg] Judy Arciniega MD Work Phone: [facility] 04-02-2024 13:27-0500 Body mass index (BMI) [Ratio] 45.42 kg/m2 Marky Mike DO Work Phone: [facility] 04-02-2024 13:27-0500 Body temperature 98.71 [degF] Marky Mike DO Work Phone: [facility] 04-02-2024 13:27-0500 Body weight 131.54 kg Marky Mike DO Work Phone: [facility] 04-02-2024 13:27-0500 Diastolic blood pressure 90 mm[Hg] Marky Mike DO Work Phone: [facility] 04-02-2024 13:27-0500 Heart rate 78 /min Marky Mike DO Work Phone: [facility] 04-02-2024 13:27-0500 SaO2% (BldA) [Mass fraction] 99 % Marky Mike DO Work Phone: [facility] 04-02-2024 13:27-0500 Systolic blood pressure 132 mm[Hg] Marky Mike DO Work Phone: [facility] 03-23-2024 14:35-0400 Body mass index (BMI) [Ratio] 44.17 kg/m2 Oly WARREN Work Phone: [facility] 03-23-2024 14:35-0400 Body weight 127.91 kg Oly WARREN Work Phone: [facility] 03-23-2024 14:35-0400 Diastolic blood pressure 76 mm[Hg] Oly WARREN Work Phone: [facility] 03-23-2024 14:35-0400 Systolic blood pressure 122 mm[Hg] Oly WARREN Work Phone: [facility] 03-23-2024 10:11-0400 Body height 170.2 cm Ma Sand Work Phone: [facility] 03-23-2024 10:11-0400 Body mass index (BMI) [Ratio] 43.06 kg/m2 Ma Sand Work Phone: [facility] 03-23-2024 10:11-0400 Body temperature 97.59 [degF] Ma Sand Work Phone: [facility] 03-23-2024 10:11-0400 Body weight 124.74 kg Ma Sand Work Phone: [facility] 03-23-2024 10:11-0400 Diastolic blood pressure 85 mm[Hg] Ma Sand Work Phone: [facility] 03-23-2024 10:11-0400 Heart rate 71 /min Ma Sand Work Phone: [facility] 03-23-2024 10:11-0400 Respiratory rate 16 /min Ma Sand Work Phone: [facility] 03-23-2024 10:11-0400 SaO2% (BldA) [Mass fraction] 94 % Ma Sand Work Phone: [facility] 03-23-2024 10:11-0400 Systolic blood pressure 135 mm[Hg] Ma Sand Work Phone: [facility] 03-16-2024 11:24-0400 Body mass index (BMI) [Ratio] 43.67 kg/m2 Luan Skip DO Work Phone: [facility] 03-16-2024 11:24-0400 Body weight 126.46 kg Luan Skip DO Work Phone: [facility] [employer] 03-16-2024 11:24-0400 Diastolic blood pressure 70 mm[Hg] Luan Skip DO Work Phone: [facility] 03-16-2024 11:24-0400 Systolic blood pressure 120 mm[Hg] Luan Skip DO Work Phone: [facility] 03-16-2024 09:20-0400 Body height 170.18 cm TOOL SUPERVISOR-C Gay Enciso Work Phone: [facility] 03-16-2024 09:20-0400 Body mass index (BMI) [Ratio] 43 kg/m2 TOOL SUPERVISOR-C Gay Johnmer Work Phone: [facility] 03-16-2024 09:20-0400 Body weight 124.73 kg TOOL SUPERVISOR-C Gayomer Johnmer Work Phone: [facility] 02-21-2024 11:04-0400 Body temperature 97.2 [degF] Ma Sand Work Phone: [facility] 02-21-2024 11:04-0400 Diastolic blood pressure 68 mm[Hg] Ma Sand Work Phone: [facility] Comment on above: manual 02-21-2024 11:04-0400 Heart rate 95 /min Ma Sand Work Phone: [facility] 02-21-2024 11:04-0400 Respiratory rate 16 /min Ma Sand Work Phone: [facility] 02-21-2024 11:04-0400 SaO2% (BldA) [Mass fraction] 98 % Ma Sand Work Phone: [facility] 02-21-2024 11:04-0400 Systolic blood pressure 102 mm[Hg] Ma Sand Work Phone: [facility] Comment on above: manual 02-16-2024 09:23-0400 Diastolic blood pressure 72 mm[Hg] TOOL SUPERVISOR-C Gayomer Johnmer Work Phone: [facility] 02-16-2024 09:23-0400 Heart rate 70 /min TOOL SUPERVISOR-C Gay Britt Work Phone: [facility] 02-16-2024 09:23-0400 Respiratory rate 16 /min TOOL SUPERVISOR-C Gay Britt Work Phone: [facility] 02-16-2024 09:23-0400 SaO2% (BldA) [Mass fraction] 96 % TOOL SUPERVISOR-C Gay Britt Work Phone: [facility] 02-16-2024 09:23-0400 Systolic blood pressure 126 mm[Hg] TOOL SUPERVISOR-C Gay Britt Work Phone: [facility] 02-16-2024 07:27-0400 Body height 170.18 cm TOOL SUPERVISOR-C Gay Enciso Work Phone: [facility] 02-16-2024 07:27-0400 Body weight 122.46 kg TOOL SUPERVISOR-C Gay Enciso Work Phone: [facility] 01-28-2024 11:31-0400 Body weight 126.6 kg [facility] 01-28-2024 11:31-0400 Diastolic blood pressure 80 mm[Hg] [facility] 01-28-2024 11:31-0400 Heart rate 69 /min [facility] 01-28-2024 11:31-0400 SaO2% (BldA) [Mass fraction] 98 % [facility] 01-28-2024 11:31-0400 Systolic blood pressure 120 mm[Hg] [facility] 01-25-2024 11:30-0400 Body temperature 97.39 [degF] Ma Sand Work Phone: [facility] 01-25-2024 11:30-0400 Diastolic blood pressure 67 mm[Hg] Ma Sand Work Phone: [facility] 01-25-2024 11:30-0400 Heart rate 68 /min Ma Sand Work Phone: [facility] 01-25-2024 11:30-0400 Respiratory rate 16 /min Ma Sand Work Phone: [facility] 01-25-2024 11:30-0400 SaO2% (BldA) [Mass fraction] 99 % Ma Sand Work Phone: [facility] 01-25-2024 11:30-0400 Systolic blood pressure 92 mm[Hg] Ma Sand Work Phone: [facility] 12-27-2023 11:16-0400 Diastolic blood pressure 68 mm[Hg] Juli Rubioer PA-C Work Phone: [facility] 12-27-2023 11:16-0400 Systolic blood pressure 98 mm[Hg] Juli Liz PA-C Work Phone: [facility] 12-27-2023 11:02-0400 Body height 170.2 cm Juli Liz PA-C Work Phone: [facility] 12-27-2023 11:02-0400 Body mass index (BMI) [Ratio] 43.08 kg/m2 Juli Liz PA-C Work Phone: [facility] 12-27-2023 11:02-0400 Body temperature 97.7 [degF] Juli Liz PA-C Work Phone: [facility] 12-27-2023 11:02-0400 Body weight 124.8 kg Juli Liz PA-C Work Phone: [facility] 12-27-2023 11:02-0400 Heart rate 89 /min Juli Liz PA-C Work Phone: [facility] 12-27-2023 11:02-0400 Respiratory rate 16 /min Juli Liz PA-C Work Phone: [facility] 12-27-2023 11:02-0400 SaO2% (BldA) [Mass fraction] 98 % Juli Liz PA-C Work Phone: [facility] 12-16-2023 14:13-0400 Body height 170.18 cm [facility] 12-16-2023 14:13-0400 Body mass index (BMI) [Ratio] 42.7 kg/m2 [facility] 12-16-2023 14:13-0400 Body temperature 98.6 [degF] [facility] 12-16-2023 14:13-0400 Body weight 123.83 kg [facility] 12-16-2023 14:13-0400 Diastolic blood pressure 73 mm[Hg] [facility] 12-16-2023 14:13-0400 Heart rate 75 /min [facility] 12-16-2023 14:13-0400 Systolic blood pressure 106 mm[Hg] [facility] 11-29-2023 13:43-0400 Body temperature 97.59 [degF] Ma Sand Work Phone: [facility] 11-29-2023 13:43-0400 Diastolic blood pressure 51 mm[Hg] Ma Sand Work Phone: [facility] 11-29-2023 13:43-0400 Heart rate 73 /min Ma Sand Work Phone: [facility] 11-29-2023 13:43-0400 Respiratory rate 16 /min Ma Sand Work Phone: [facility] 11-29-2023 13:43-0400 SaO2% (BldA) [Mass fraction] 96 % Ma Sand Work Phone: [facility] 11-29-2023 13:43-0400 Systolic blood pressure 83 mm[Hg] Ma Sand Work Phone: [facility] 11-04-2023 13:55-0400 Body height 170.18 cm [facility] 11-04-2023 13:55-0400 Body temperature 97.3 [degF] [facility] 11-04-2023 13:55-0400 Diastolic blood pressure 54 mm[Hg] [facility] 11-04-2023 13:55-0400 Heart rate 62 /min [facility] 11-04-2023 13:55-0400 Systolic blood pressure 104 mm[Hg] [facility] 10-27-2023 14:44-0400 Body temperature 97 [degF] Ma Sand Work Phone: [facility] 10-27-2023 14:44-0400 Diastolic blood pressure 72 mm[Hg] Ma Sand Work Phone: [facility] 10-27-2023 14:44-0400 Heart rate 97 /min Ma Sand Work Phone: [facility] 10-27-2023 14:44-0400 Respiratory rate 18 /min Ma Sand Work Phone: [facility] 10-27-2023 14:44-0400 SaO2% (BldA) [Mass fraction] 97 % Ma Sand Work Phone: [facility] 10-27-2023 14:44-0400 Systolic blood pressure 110 mm[Hg] Ma Sand Work Phone: [facility] 10-20-2023 13:10-0400 Body height 170.18 cm [facility] 10-20-2023 13:10-0400 Body mass index (BMI) [Ratio] 43.2 kg/m2 [facility] 10-20-2023 13:10-0400 Body temperature 97.3 [degF] [facility] 10-20-2023 13:10-0400 Body weight 125.19 kg [facility] 10-20-2023 13:10-0400 Diastolic blood pressure 54 mm[Hg] [facility] 10-20-2023 13:10-0400 Heart rate 74 /min [facility] 10-20-2023 13:10-0400 Systolic blood pressure 111 mm[Hg] [facility] 09-30-2023 10:48-0400 Body temperature 97 [degF] Ma Sand Work Phone: [facility] 09-30-2023 10:48-0400 Diastolic blood pressure 82 mm[Hg] Ma Sand Work Phone: [facility] 09-30-2023 10:48-0400 Heart rate 71 /min Ma Sand Work Phone: [facility] 09-30-2023 10:48-0400 Respiratory rate 18 /min Ma Sand Work Phone: [facility] 09-30-2023 10:48-0400 SaO2% (BldA) [Mass fraction] 97 % Ma Sand Work Phone: [facility] 09-30-2023 10:48-0400 Systolic blood pressure 132 mm[Hg] Ma Sand Work Phone: [facility] 09-22-2023 14:41-0400 Body weight 117.93 kg [facility] 08-31-2023 10:34-0400 Body temperature 97.3 [degF] Ma Sand Work Phone: [facility] 08-31-2023 10:34-0400 Diastolic blood pressure 66 mm[Hg] Ma Sand Work Phone: [facility] 08-31-2023 10:34-0400 Heart rate 68 /min Ma Sand Work Phone: [facility] 08-31-2023 10:34-0400 Respiratory rate 18 /min Ma Sand Work Phone: [facility] 08-31-2023 10:34-0400 SaO2% (BldA) [Mass fraction] 99 % Ma Sand Work Phone: [facility] 08-31-2023 10:34-0400 Systolic blood pressure 105 mm[Hg] Ma Sand Work Phone: [facility] 08-05-2023 11:15-0400 Body temperature 97.39 [degF] Ma Sand Work Phone: [facility] 08-05-2023 11:15-0400 Diastolic blood pressure 41 mm[Hg] Ma Sand Work Phone: [facility] 08-05-2023 11:15-0400 Heart rate 68 /min Ma Sand Work Phone: [facility] 08-05-2023 11:15-0400 Respiratory rate 18 /min Ma Sand Work Phone: [facility] 08-05-2023 11:15-0400 SaO2% (BldA) [Mass fraction] 98 % Ma Sand Work Phone: [facility] 08-05-2023 11:15-0400 Systolic blood pressure 98 mm[Hg] Ma Sand Work Phone: [facility] 07-13-2023 11:49-0500 Body temperature 97.5 [degF] Ma Sand Work Phone: [facility] 07-13-2023 11:49-0500 Diastolic blood pressure 74 mm[Hg] Ma Sand Work Phone: [facility] 07-13-2023 11:49-0500 Heart rate 83 /min Hoda Sand Work Phone: [facility] 07-13-2023 11:49-0500 Respiratory rate 18 /min Hoda Sand Work Phone: [facility] 07-13-2023 11:49-0500 SaO2% (BldA) [Mass fraction] 96 % Ma Sand Work Phone: [facility] 07-13-2023 11:49-0500 Systolic blood pressure 109 mm[Hg] Ma Sand Work Phone: [facility] 07-13-2023 10:01-0500 Diastolic blood pressure 65 mm[Hg] Lois Holm MD Work Phone: [facility] 07-13-2023 10:01-0500 Systolic blood pressure 105 mm[Hg] Lois Holm MD Work Phone: [facility] 07-13-2023 09:41-0500 Body height 170.2 cm Lois Holm MD Work Phone: [facility] 07-13-2023 09:41-0500 Body mass index (BMI) [Ratio] 43.85 kg/m2 Lois Holm MD Work Phone: [facility] 07-13-2023 09:41-0500 Body weight 127.01 kg Lois Holm MD Work Phone: [facility] 07-13-2023 09:41-0500 Heart rate 71 /min Lois Holm MD Work Phone: [facility] 07-06-2023 14:48-0500 Body mass index (BMI) [Ratio] 41.81 kg/m2 Kade Richardson MD Work Phone: [facility] 07-06-2023 14:48-0500 Body weight 119.3 kg Kade Richardson MD Work Phone: [facility] 06-09-2023 08:45-0500 Body height 170.2 cm Michelle Britton APRN-HYPERION ESSBASE DEVELOPER Work Phone: [facility] 06-09-2023 08:45-0500 Body mass index (BMI) [Ratio] 44.48 kg/m2 Michelle Britton APRN-HYPERION ESSBASE DEVELOPER Work Phone: [facility] 06-09-2023 08:45-0500 Body weight 128.82 kg Michelle Britton APRN-HYPERION ESSBASE DEVELOPER Work Phone: [facility] 06-09-2023 08:45-0500 Diastolic blood pressure 82 mm[Hg] Michelle Britton APRN-HYPERION ESSBASE DEVELOPER Work Phone: [facility] 06-09-2023 08:45-0500 Heart rate 80 /min Michelle Britton APRN-HYPERION ESSBASE DEVELOPER Work Phone: [facility] 06-09-2023 08:45-0500 Systolic blood pressure 146 mm[Hg] Michelle Britton APRN-HYPERION ESSBASE DEVELOPER Work Phone: [facility] 05-26-2023 17:17-0500 Body weight 123.83 kg Christie Phan MD Work Phone: [facility] 04-26-2023 14:42-0500 Body weight 125.19 kg Christie Phan MD Work Phone: [facility] 03-19-2023 11:16-0400 Body temperature 97.7 [degF] Ma Sand Work Phone: [facility] 03-19-2023 11:16-0400 Diastolic blood pressure 54 mm[Hg] Ma Sand Work Phone: [facility] 03-19-2023 11:16-0400 Heart rate 75 /min Ma Sand Work Phone: [facility] 03-19-2023 11:16-0400 Respiratory rate 16 /min Ma Sand Work Phone: [facility] 03-19-2023 11:16-0400 SaO2% (BldA) [Mass fraction] 96 % Ma Sand Work Phone: [facility] 03-19-2023 11:16-0400 Systolic blood pressure 111 mm[Hg] Ma Sand Work Phone: [facility] 02-19-2023 10:56-0400 Body height 170.2 cm Vera Najera MD Work Phone: [facility] 02-19-2023 10:56-0400 Body temperature 97.39 [degF] Vera Najera MD Work Phone: [facility] 02-19-2023 10:56-0400 Body weight 120.75 kg Vera Najera MD Work Phone: [facility] 02-19-2023 10:56-0400 Diastolic blood pressure 69 mm[Hg] Vera Najera MD Work Phone: [facility] 02-19-2023 10:56-0400 Heart rate 110 /min Vera Najera MD Work Phone: [facility] 02-19-2023 10:56-0400 Respiratory rate 16 /min Vera Najera MD Work Phone: [facility] 02-19-2023 10:56-0400 SaO2% (BldA) [Mass fraction] 96 % Vera Najera MD Work Phone: [facility] 02-19-2023 10:56-0400 Systolic blood pressure 132 mm[Hg] Vera Najera MD Work Phone: [facility] 01-22-2023 12:09-0400 Diastolic blood pressure 76 mm[Hg] Ma Sand Work Phone: [facility] 01-22-2023 12:09-0400 Systolic blood pressure 107 mm[Hg] Ma Sand Work Phone: [facility] 01-22-2023 12:08-0400 Body temperature 97.59 [degF] Ma Sand Work Phone: [facility] 01-22-2023 12:08-0400 Heart rate 102 /min Ma Sand Work Phone: [facility] 01-22-2023 12:08-0400 Respiratory rate 16 /min Ma Sand Work Phone: [facility] 01-22-2023 12:08-0400 SaO2% (BldA) [Mass fraction] 97 % Ma Sand Work Phone: [facility] 11-19-2022 11:00-0400 Body temperature 97.2 [degF] Ma Sand Work Phone: [facility] 11-19-2022 11:00-0400 Diastolic blood pressure 54 mm[Hg] Ma Sand Work Phone: [facility] 11-19-2022 11:00-0400 Heart rate 98 /min Ma Sand Work Phone: [facility] 11-19-2022 11:00-0400 Respiratory rate 16 /min Ma Sand Work Phone: [facility] 11-19-2022 11:00-0400 SaO2% (BldA) [Mass fraction] 98 % Ma Sand Work Phone: [facility] 11-19-2022 11:00-0400 Systolic blood pressure 126 mm[Hg] Ma Sand Work Phone: [facility] 10-22-2022 11:51-0400 Body height 170.2 cm Ma Sand Work Phone: [facility] 10-22-2022 11:51-0400 Body weight 120.66 kg Ma Sand Work Phone: [facility] 10-22-2022 11:51-0400 Respiratory rate 16 /min Ma Sand Work Phone: [facility] 10-22-2022 10:50-0400 Body height 170.2 cm Vera Najera MD Work Phone: [facility] 10-22-2022 10:50-0400 Body temperature 97 [degF] Vera Najera MD Work Phone: [facility] 10-22-2022 10:50-0400 Body weight 120.75 kg Vera Najera MD Work Phone: [facility] 10-22-2022 10:50-0400 Diastolic blood pressure 55 mm[Hg] Vera Najera MD Work Phone: [facility] 10-22-2022 10:50-0400 Heart rate 78 /min Vera Najera MD Work Phone: [facility] 10-22-2022 10:50-0400 Respiratory rate 16 /min Vera Najera MD Work Phone: [facility] 10-22-2022 10:50-0400 SaO2% (BldA) [Mass fraction] 98 % Vera Najera MD Work Phone: [facility] 10-22-2022 10:50-0400 Systolic blood pressure 132 mm[Hg] Vera Najera MD Work Phone: [facility] 09-24-2022 10:22-0400 Body height 170.2 cm Ma Sand Work Phone: [facility] 09-24-2022 10:22-0400 Body temperature 97 [degF] Ma Sand Work Phone: [facility] 09-24-2022 10:22-0400 Body weight 120.2 kg Ma Sand Work Phone: [facility] 09-24-2022 10:22-0400 Diastolic blood pressure 81 mm[Hg] Ma Sand Work Phone: [facility] 09-24-2022 10:22-0400 Heart rate 77 /min Ma Sand Work Phone: [facility] 09-24-2022 10:22-0400 Respiratory rate 16 /min Ma Sand Work Phone: [facility] 09-24-2022 10:22-0400 SaO2% (BldA) [Mass fraction] 97 % Ma Sand Work Phone: [facility] 09-24-2022 10:22-0400 Systolic blood pressure 116 mm[Hg] Hoda Marshall Work Phone: [facility] 09-07-2022 14:03-0400 Body weight 120.2 kg Christie Phan MD Work Phone: [facility] 08-27-2022 09:45-0400 Body height 170.2 cm Rebekah Rojas APRN.HYPERION ESSBASE DEVELOPER Work Phone: [facility] 08-27-2022 09:45-0400 Body temperature 97.7 [degF] Rebekah Rojas APRN.HYPERION ESSBASE DEVELOPER Work Phone: [facility] 08-27-2022 09:45-0400 Body weight 118.66 kg Rebekah Rojas APRN.HYPERION ESSBASE DEVELOPER Work Phone: [facility] 08-27-2022 09:45-0400 Diastolic blood pressure 55 mm[Hg] Rebekah Rojas APRN.HYPERION ESSBASE DEVELOPER Work Phone: [facility] 08-27-2022 09:45-0400 Heart rate 63 /min Rebekah Rojas APRN.HYPERION ESSBASE DEVELOPER Work Phone: [facility] 08-27-2022 09:45-0400 Respiratory rate 16 /min Rebekah Rojas APRN.HYPERION ESSBASE DEVELOPER Work Phone: [facility] 08-27-2022 09:45-0400 SaO2% (BldA) [Mass fraction] 96 % Rebekah Rojas APRN.HYPERION ESSBASE DEVELOPER Work Phone: [facility] 08-27-2022 09:45-0400 Systolic blood pressure 117 mm[Hg] Rebekah Rojas APRN.HYPERION ESSBASE DEVELOPER Work Phone: [facility] 05-20-2022 13:28-0500 Body height 170.2 cm Vera Najera MD Work Phone: [facility] 05-20-2022 13:28-0500 Body temperature 97.7 [degF] Vera Najera MD Work Phone: [facility] 05-20-2022 13:28-0500 Diastolic blood pressure 70 mm[Hg] Vera Najera MD Work Phone: [facility] 05-20-2022 13:28-0500 Heart rate 93 /min Vera Najera MD Work Phone: [facility] 05-20-2022 13:28-0500 Respiratory rate 16 /min Vera Najera MD Work Phone: [facility] 05-20-2022 13:28-0500 SaO2% (BldA) [Mass fraction] 97 % Vera Najera MD Work Phone: [facility] 05-20-2022 13:28-0500 Systolic blood pressure 127 mm[Hg] Vera Najera MD Work Phone: [facility] 03-18-2022 10:49-0400 Body height 170.2 cm Vera Najera MD Work Phone: [facility] 03-18-2022 10:49-0400 Body temperature 97.81 [degF] Vera Najera MD Work Phone: [facility] 03-18-2022 10:49-0400 Body weight 113.4 kg Vera Najera MD Work Phone: [facility] 03-18-2022 10:49-0400 Diastolic blood pressure 49 mm[Hg] Vera Najera MD Work Phone: [facility] 03-18-2022 10:49-0400 Heart rate 86 /min Vera Najera MD Work Phone: [facility] 03-18-2022 10:49-0400 Respiratory rate 16 /min Vera Najera MD Work Phone: [facility] 03-18-2022 10:49-0400 SaO2% (BldA) [Mass fraction] 98 % Vera Najera MD Work Phone: [facility] 03-18-2022 10:49-0400 Systolic blood pressure 145 mm[Hg] Vera Najera MD Work Phone: [facility] 03-09-2022 11:41-0400 Body height 170.2 cm Christie Phan MD Work Phone: [facility] 03-09-2022 11:41-0400 Body weight 112.49 kg Christie Phan MD Work Phone: [facility] 03-09-2022 11:41-0400 Diastolic blood pressure 100 mm[Hg] Christie Phan MD Work Phone: [facility] 03-09-2022 11:41-0400 Systolic blood pressure 158 mm[Hg] Christie Phan MD Work Phone: [facility] 03-04-2022 10:39-0400 Body height 170.2 cm Vera Najera MD Work Phone: [facility] 03-04-2022 10:39-0400 Body temperature 97.5 [degF] Vera Najera MD Work Phone: [facility] 03-04-2022 10:39-0400 Body weight 112.76 kg Vera Najera MD Work Phone: [facility] 03-04-2022 10:39-0400 Diastolic blood pressure 48 mm[Hg] Vera Najera MD Work Phone: [facility] 03-04-2022 10:39-0400 Heart rate 79 /min Vera Najera MD Work Phone: [facility] 03-04-2022 10:39-0400 Respiratory rate 16 /min Vera Najera MD Work Phone: [facility] 03-04-2022 10:39-0400 SaO2% (BldA) [Mass fraction] 99 % Vera Najera MD Work Phone: [facility] 03-04-2022 10:39-0400 Systolic blood pressure 132 mm[Hg] Vera Najera MD Work Phone: [facility] 11-26-2021 16:00-0400 Body height 168.91 cm Mirela Buffy Other [employer] Other 11-26-2021 16:00-0400 Body mass index (BMI) [Ratio] 37.68 kg/m2 Mirela Buffy Other [employer] Other 11-26-2021 16:00-0400 Body temperature 98.4 [degF] Mirela Kelsey Other [employer] Other 11-26-2021 16:00-0400 Body weight 107.5 kg Mirela Kelsey Other [employer] Other 11-26-2021 16:00-0400 Diastolic blood pressure 61 mm[Hg] Mirela Kelsey Other [employer] Other 11-26-2021 16:00-0400 Systolic blood pressure 115 mm[Hg] Mirlea Kelsey Other [employer] Other 10-24-2021 08:18-0400 Body weight 108.86 kg Lynne Ni MD Work Phone: [facility] 10-24-2021 08:18-0400 Diastolic blood pressure 42 mm[Hg] Lynne Ni MD Work Phone: [facility] 10-24-2021 08:18-0400 Heart rate 72 /min Lynne Ni MD Work Phone: [facility] 10-24-2021 08:18-0400 Systolic blood pressure 106 mm[Hg] Lynne Ni MD Work Phone: [facility] 10-15-2021 15:45-0400 Body height 168.91 cm Mirela Kelsey Other [employer] Other 10-15-2021 15:45-0400 Body mass index (BMI) [Ratio] 38.31 kg/m2 Mirela Kelsey Other [employer] Other 10-15-2021 15:45-0400 Body temperature 98.1 [degF] Mirela Kelsey Other [employer] Other 10-15-2021 15:45-0400 Body weight 109.32 kg Mirela Kelsey Other [employer] Other 10-15-2021 15:45-0400 Diastolic blood pressure 60 mm[Hg] Mirela Kelsey Other [employer] Other 10-15-2021 15:45-0400 Systolic blood pressure 114 mm[Hg] Mirela Buffy Other [employer] Other 09-11-2021 15:15-0400 Body height 168.91 cm Mirela Kelsey Other [employer] Other 09-11-2021 15:15-0400 Body mass index (BMI) [Ratio] 37.99 kg/m2 Mirela Kelsey Other [employer] Other 09-11-2021 15:15-0400 Body temperature 97.9 [degF] Mirela Kelsey Other [employer] Other 09-11-2021 15:15-0400 Body weight 108.41 kg Mirela Kelsey Other [employer] Other 09-11-2021 15:15-0400 Diastolic blood pressure 83 mm[Hg] Mirela Buffy Other [employer] Other 09-11-2021 15:15-0400 Systolic blood pressure 144 mm[Hg] Mirela Kelsey Other [place] [employer] Other 10-07-2020 12:45-0400 Diastolic blood pressure 78 mm[Hg] Stv [facility]OC[facility] Phone: 10-07-2020 12:45-0400 Heart rate 68 /min [facility] Phone: 10-07-2020 12:45-0400 SaO2% (BldA) [Mass fraction] 99 % [facility] Phone: 10-07-2020 12:45-0400 Systolic blood pressure 112 mm[Hg] [facility] Phone: 10-07-2020 10:45-0400 Respiratory rate 22 /min [facility] Phone: 10-07-2020 09:01-0400 Body height 170.2 cm [facility] Phone: 10-07-2020 09:01-0400 Body mass index (BMI) [Ratio] 36.65 kg/m2 [facility] Phone: 10-07-2020 09:01-0400 Body temperature 97.81 [degF] [facility] Phone: 10-07-2020 09:01-0400 Body weight 106.14 kg [facility] Phone: Encounters Encounter Date Encounter Type Care Provider Facility Start: 06-06-2024 End: 06-06-2024 Durga WARREN Work Phone: [facility] Start: 06-06-2024 End: 06-06-2024 Durga WARREN Work Phone: [facility] Start: 05-19-2024 End: 05-19-2024 ambulatory Chair 3 Gabbi Work Phone: Hematology/Oncology Comment on above: Frequent infections (Primary Dx); Megaloblastic anemia due to vitamin B12 deficiency; Elevated sed rate; Hypogammaglobulinemia (HCC); Bilateral leg weakness; Discoid lupus erythematosus Start: 05-16-2024 End: 05-16-2024 Orders Only Fara Lopez APRN.CNP Work Phone: Hematology/Oncology Start: 05-15-2024 End: 05-15-2024 Social Work Deisy Addison [employer] Hematology/Oncology Start: 05-12-2024 End: 05-12-2024 Specialty Pharmacy Aidee Quintanilla [facility] Comment on above: SPP Inflammatory Con ditions - Medication Refill (Benlysta) Start: 04-28-2024 End: 04-28-2024 Orders Only Pepper Cotter LPN [facility] Comment on above: Peripheral vascular disease, unspecified (CMS-HCC) (Primary Dx); Cold extremities; Systemic lupus erythematosus (CMS-HCC) Start: 04-26-2024 End: 04-26-2024 ambulatory MANUEL Suarez Cristina Facility:[facility] Start: 04-26-2024 End: 04-26-2024 Nursing evaluation of patient and report Ma Nurse Dre Marshall Work Phone: Hematology/Oncology Comment on above: Elevated sed rate (P rimary Dx); Megaloblastic anemia due to vitamin B12 deficiency Start: 04-11-2024 End: 04-11-2024 Specialty Pharmacy Aidee Quintanilla [facility] Comment on above: SPP Inflammatory Con ditions - Medication Refill (Benlysta) Start: 04-10-2024 End: 04-10-2024 Bamboo flowsheet Gordo Barfield MD Work Phone: [facility] Start: 04-10-2024 End: 04-10-2024 Bamboo flowsheet Gordo Barfield MD Work Phone: [facility] Start: 04-10-2024 End: 04-10-2024 Telephone encounter Vera Najera MD Work Phone: [facility] Comment on above: Appointment Start: 04-10-2024 End: 04-10-2024 Office outpatient visit 25 minutes Gordo Barfield MD Work Phone: [facility] Comment on above: LPRD (laryngopharyng eal reflux disease) (Primary Dx); Acute otalgia, right Start: 04-10-2024 End: 04-10-2024 ambulatory GORDO BARFIELD Not Available Start: 04-07-2024 End: 04-07-2024 Social Work Deisy Jaime [facility] Hematology/Oncology Start: 04-06-2024 End: 04-06-2024 Clinisync Result Encounter Oly WARREN Work Phone: [facility] Unsolicited Start: 04-06-2024 End: 04-06-2024 Clinisync Result Encounter Oly WARREN Work Phone: [facility] Unsolicited Start: 04-06-2024 End: 04-06-2024 Office outpatient new 30 minutes Judy Arciniega MD Work Phone: [facility] Comment on above: Systemic lupus eryth ematosus (CMS-HCC) (Primary Dx); Cold extremities; Pain of lower extremity, unspecified laterality; Rheumatoid arthritis, involving unspecified site, unspecified whether rheumatoid factor present (CMS-HCC); Current smoker; 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 Start: 04-03-2024 End: 04-03-2024 Refill Marky Mike DO Work Phone: [id number] Comment on above: Oral thrush (Primary Dx) Start: 04-02-2024 End: 04-03-2024 Telephone encounter Lynne Ni MD Work Phone: Rheumatology Comment on above: Results Start: 04-02-2024 End: 04-02-2024 Office outpatient visit 25 minutes Marky Mike DO Work Phone: [facility] Comment on above: Oral thrush (Primary Dx) Start: 04-02-2024 End: 04-02-2024 ambulatory MARKY MIKE Not Available Start: 03-31-2024 End: 04-11-2024 Chart [facility]ing [facility] Main Work Phone: Neurology Comment on above: CMN Start: 03-30-2024 End: 03-30-2024 ambulatory Maico Douglas MD Work Phone: [facility] Start: 03-27-2024 End: 03-28-2024 ambulatory Vera Najera MD Work Phone: Hematology/Oncology Comment on above: 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); High total serum IgM; JOSE RAFAEL (obstructive sleep apnea); Elevated sed rate; Hypogammaglobulinemia (HCC); Frequent infections Start: 03-27-2024 End: 03-28-2024 Telemedicine consultation with patient Vera Najera MD Work Phone: Hematology/Oncology Start: 03-27-2024 End: 03-28-2024 ambulatory [facility] Facility:[facility] Start: 03-23-2024 End: 03-23-2024 ambulatory LOY PARNELL Not Available Start: 03-23-2024 End: 03-23-2024 Office outpatient visit 15 minutes Oly WARREN Work Phone: [facility] OB Comment on above: Abnormal uterine ble eding (AUB); Menorrhagia with regular cycle Start: 03-23-2024 End: 03-23-2024 Bamboo flowsheet Oly WARREN Work Phone: [facility] Start: 03-23-2024 End: 03-23-2024 Bamboo flowsheet Oly WARREN Work Phone: [facility] Start: 03-23-2024 End: 03-23-2024 Nursing evaluation of patient and report Hoda Marshall Work Phone: Hematology/Oncology Comment on above: Elevated sed rate (P rimary Dx); Megaloblastic anemia due to vitamin B12 deficiency Start: 03-23-2024 End: 03-23-2024 ambulatory MANUEL FERRIS Facility:[facility] Start: 03-20-2024 End: 03-30-2024 Telephone encounter Akiko Cooper MD Work Phone: [facility] Start: 03-18-2024 End: 03-18-2024 ambulatory MANUEL FERRIS Facility:[facility] Start: 03-18-2024 End: 03-18-2024 Patient encounter [...] both feet; Long-term use of high-risk medication; USP 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; Bilateral hand [...] Not Available Start: 03-16-2024 End: 03-16-2024 ambulatory TOOL SUPERVISOR-C Gay Enciso Work Phone: [facility] Work Phone: Start: 03-16-2024 End: 03-16-2024 Patient encounter procedure TOOL SUPERVISOR-C Gay Enciso Work Phone: [facility] Gastroenterology Work Phone: Start: 03-13-2024 End: 03-13-2024 Specialty Pharmacy Aidee Quintanilla [facility] Comment on above: SPP Inflammatory Con ditions - Medication Refill (Benlysta - NCA 09/2024) Start: 03-08-2024 End: 03-08-2024 ambulatory [facility] Start: 03-07-2024 End: 03-08-2024 Chart abstracting [facility] Main Work Phone: Neurology Comment on above: cmn Start: 03-02-2024 End: 03-02-2024 Refill Zita Rogers TOOL SUPERVISOR Work Phone: [facility] Comment on above: Lumbosacral radiculo tray at L5; Degenerative disc disease, lumbar; Cervical radiculopathy at C5 Start: 02-28-2024 End: 02-28-2024 ambulatory TOOL SUPERVISOR-C Gay Enciso Work Phone: [facility] Work Phone: Start: 02-28-2024 End: 02-28-2024 Patient encounter procedure TOOL SUPERVISOR-C Gay Enciso Work Phone: [facility] Work Phone: Start: 02-22-2024 End: 02-22-2024 Telephone encounter Oly CHO Work Phone: [facility] Comment on above: Set Painter - O ther (Eds scheduling) Start: 02-21-2024 End: 02-21-2024 Nursing evaluation of patient and report Hoda Marshall Work Phone: Hematology/Oncology Comment on above: Elevated sed rate (P rimary Dx); Megaloblastic anemia due to vitamin B12 deficiency Start: 02-21-2024 End: 02-21-2024 ambulatory MANUEL FERRIS Facility:[facility] Start: 02-18-2024 End: 02-18-2024 Telephone encounter Lynne Ni MD Work Phone: Rheumatology Start: 02-16-2024 Non-patient / Non-visit TOOL SUPERVISOR-C Abiola Enciso Work Phone: [facility] Work Phone: Start: 02-16-2024 End: 02-16-2024 Admission to same day surgery center TOOL SUPERVISOR-C Gay Enciso Work Phone: [facility] Work Phone: Start: 02-16-2024 End: 02-16-2024 ambulatory TOOL SUPERVISOR-C Gay Enciso Work Phone: [facility] Work Phone: Start: 02-15-2024 End: 02-15-2024 Telephone encounter Lexus Heck APRN.HYPERION ESSBASE DEVELOPER Work Phone: Neurology Comment on above: Orders (PAP RX.) Start: 02-14-2024 End: 02-14-2024 Follow-up encounter Aidee Quintanilla [facility] Comment on above: SPP Inflammatory Con ditions - Follow-up (Benlysta); Insurance Authorization ([place] Renew[place] Submitted) Start: 02-14-2024 End: 02-14-2024 ambulatory Lexus Heck APRN.HYPERION ESSBASE DEVELOPER Work Phone: Neurology Comment on above: JOSE RAFAEL (obstructive sle ep apnea) (Primary Dx); Somnolence, daytime SPP Inflammatory Con ditions - Medication Refill (Benlysta - NCA 09/2024) Start: 02-14-2024 End: 02-14-2024 Telemedicine consultation with patient Lexus Heck APROrionHYPERION ESSBASE DEVELOPER Work Phone: Neurology Start: 02-09-2024 End: 02-09-2024 Bamboo flowsheet Zita Rogers TOOL SUPERVISOR Work Phone: [facility] NEUR[facility] Start: 02-09-2024 End: 02-09-2024 Bamboo flowsheet Zita Rogers TOOL SUPERVISOR Work Phone: [facility] Start: 02-09-2024 End: 02-09-2024 ambulatory ZITA ROGERS Not Available Start: 02-09-2024 End: 02-09-2024 Phys/qhp telephone evaluation 21-30 min Zita Rogers TOOL SUPERVISOR Work Phone: [facility] 210 Comment on above: Lumbosacral radiculo tray at L5 (Primary Dx); Degenerative disc disease, lumbar; Cervical radiculopathy at C5 Start: 02-07-2024 End: 02-07-2024 Refill Zita Rogers TOOL SUPERVISOR Work Phone: [facility] 210 Comment on above: Autoimmune disease ( CMS/HCC); Fibromyalgia; Numbness Start: 01-28-2024 End: 01-31-2024 ambulatory Alhaji Head DO Work Phone: [facility] Work Phone: Comment on above: Blood work Start: 01-28-2024 End: 01-28-2024 Patient encounter procedure [facility] [place] Work Phone: Start: 01-27-2024 End: 01-27-2024 Telemedicine consultation with patient Alhaji Head DO Work Phone: Infectious Disease Start: 01-27-2024 End: 01-27-2024 ambulatory Alhaji Head DO Work Phone: Infectious Disease Comment on above: Pseudomonas infectio n (Primary Dx); Other systemic lupus erythematosus with other organ involvement (HCC); On prednisone therapy; Long-term use of Plaquenil Start: 01-25-2024 End: 01-25-2024 Nursing evaluation of patient and report Hoda Marshall Work Phone: Hematology/Oncology Comment on above: Elevated sed rate (P rimary Dx); Megaloblastic anemia due to vitamin B12 deficiency Start: 01-25-2024 End: 01-25-2024 ambulatory MANUEL FERRIS Facility:[facility] Start: 01-20-2024 End: 01-20-2024 Refill Kade Richardson MD Work Phone: [facility] Comment on above: Degenerative disc di sease, lumbar (Primary Dx); Lumbosacral radiculopathy at L5 Start: 01-18-2024 End: 01-19-2024 Specialty Pharmacy Aidee Quintanilla [facility] Comment on above: SPP Inflammatory Con ditions - Medication Refill (Benlysta) Start: 01-12-2024 End: 01-12-2024 ambulatory Lynne Ni MD Work Phone: Rheumatology Start: 01-12-2024 End: 01-12-2024 Patient encounter procedure Lynne Ni MD Work Phone: Rheumatology Comment on above: Flair Start: 12-30-2023 Telephone encounter Lynne shaw MD Work Phone: Rheumatology Comment on above: Results Start: 12-27-2023 Telephone encounter Juli su PA-C Work Phone: Hematology/Oncology Comment on above: Results Start: 12-27-2023 End: 12-27-2023 Nursing evaluation of patient and report Hoda Marshall Work Phone: Hematology/Oncology Comment on above: Elevated sed rate (P rimary Dx); Megaloblastic anemia due to vitamin B12 deficiency Start: 12-27-2023 End: 12-27-2023 Office outpatient visit 15 minutes Juli Narayanan PA-C Work Phone: Hematology/Oncology Comment on above: 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); Elevated sed rate; Obstructive sleep apnea syndrome Start: 12-27-2023 End: 12-27-2023 ambulatory MANUEL FERRIS Facility:[facility] Start: 12-24-2023 End: 12-24-2023 ambulatory [facility] Start: 12-21-2023 End: 12-21-2023 ambulatory ZITA ROGERS Not Available Start: 12-16-2023 End: 12-16-2023 ambulatory [facility] Work Phone: Start: 12-16-2023 End: 12-16-2023 Patient encounter procedure [facility] Disease Work Phone: Start: 12-15-2023 End: 12-15-2023 ambulatory ZITA ROGERS Not Available Start: 12-13-2023 Specialty Pharmacy Aidee Quintanilla RP [facility] Comment on above: SPP Inflammatory Con ditions - Medication Refill (Benlysta - NCA 09/2024) Start: 12-04-2023 End: 12-04-2023 ambulatory DIGNA Adrienne PRICE Not Available Start: 11-29-2023 End: 11-29[facility] Start: 11-29-2023 End: 11-29-2023 Nursing evaluation of patient and report Ma Nurse Dre Marshall Work Phone: Hematology/Oncology Comment on above: Elevated sed rate (P rimary Dx); Megaloblastic anemia due to vitamin B12 deficiency Start: 11-25-2023 ambulatory Vera nelson MD Work Phone: Hematology/Oncology Comment on above: Folic acid Start: 11-24-2023 End: 11-24-2023 [facility] Start: 11-15-2023 End: 11-15-2023 Specialty Pharmacy Aidee Quintanilla [facility] Comment on above: SPP Inflammatory Con ditions - Medication Refill (Benlysta - NCA 09/2024) Start: 11-11-2023 Refill Lynne Ni MD Work Phone: Rheumatology Comment on above: Refill Request Start: 11-08-2023 End: 11-08-2023 ambulatory ZITA ROGERS Not Available Start: 11-04-2023 End: 11-04-2023 ambulatory [facility] Work Phone: Start: 11-04-2023 End: 11-04-2023 Patient encounter procedure [facility] Infectious Disease Work Phone: Start: 10-27-2023 End: 10-27-2023 Nursing evaluation of patient and report Ma Dreal Marshall Work Phone: Hematology/Oncology Comment on above: Elevated sed rate (P rimary Dx); Megaloblastic anemia due to vitamin B12 deficiency Start: 10-27-2023 End: 10-28-2023 ambulatory Lynne Ni MD Work Phone: Rheumatology Start: 10-27-2023 Patient encounter procedure Lynne Ni MD Work Phone: Rheumatology Comment on above: Cdiff Start: 10-21-2023 End: 10-21-2023 ambulatory ZITA ROGERS Not Available Start: 10-20-2023 End: 10-20-2023 ambulatory [facility] Work Phone: Start: 10-20-2023 End: 10-20-2023 Patient encounter procedure [facility] Infectious Disease Work Phone: Start: 10-12-2023 Specialty Pharmacy Aidee coreas [facility] Comment on above: SPP Inflammatory Con ditions - Medication Refill (Benlysta) Start: 10-05-2023 End: 10-05-2023 ambulatory MANUEL Suarez Cristina Facility:[facility] Start: 10-05-2023 End: 10-05-2023 Patient encounter [...] of Plaquenil; Long-term use of high-risk medication; USP 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; 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; Bilateral hand pain; History of vitamin D deficiency Start: 10-05-2023 End: 10-05-2023 Telemedicine consultation with patient Lynne Ni MD Work Phone: Rheumatology Start: 09-30-2023 End: 09-30-2023 Nursing evaluation of patient and report Hoda Marshall Work Phone: Hematology/Oncology Comment on above: Elevated sed rate (P rimary Dx); Megaloblastic anemia due to vitamin B12 deficiency Start: 09-30-2023 End: 09-30-2023 ambulatory [facility] Facility:[facility] Start: 09-22-2023 End: 09-22-2023 Patient encounter procedure [facility] Gastroenterology Work Phone: Start: 09-13-2023 End: 09-13-2023 Specialty Pharmacy Aidee Quintanilla [facility] Comment on above: SPP Inflammatory Con ditions - Medication Refill (Benlysta) Start: 09-09-2023 End: 09-10-2023 ambulatory Vera Najera MD Work Phone: Hematology/Oncology Comment on above: 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); Obstructive sleep apnea syndrome; Chronic fatigue and malaise; High total serum IgM; JOSE RAFAEL (obstructive sleep apnea); Somnolence, daytime Start: 09-09-2023 End: 09-10-2023 Telemedicine consultation with patient Vera Najera MD Work Phone: [facility] Start: 09-04-2023 Telephone encounter Lynne shaw MD Work Phone: Rheumatology Comment on above: Results Start: 08-31-2023 End: 08-31-2023 Nursing evaluation of patient and report Hoda Marshall Work Phone: Hematology/Oncology Comment on above: 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); Elevated sed rate Start: 08-31-2023 End: 08-31-2023 ambulatory [facility] Facility:[facility] Start: 08-12-2023 Specialty Pharmacy Aidee Quintanilla RP [facility] Comment on above: SPP Inflammatory Con ditions - Medication Refill (Benlysta ) Start: 08-10-2023 End: 08-10-2023 ambulatory GORDO BARFIELD Not Available Start: 08-05-2023 End: 08-05-2023 ambulatory MANUEL FERRIS Facility:[facility] Start: 08-05-2023 End: 08-05-2023 Nursing evaluation of patient and report Hoda Marshall Work Phone: Hematology/Oncology Comment on above: 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); Elevated sed rate Start: 07-28-2023 Non-patient / Non-visit [facility] Gastroenterology Work Phone: Start: 07-15-2023 End: 07-15-2023 ambulatory BERNABE Al ENGLISH Not Available Start: 07-13-2023 End: 07-13-2023 ambulatory Aidee Quintanilla [facility] Start: 07-13-2023 End: 07-13-2023 Nursing evaluation of patient and report Hoda Marshall Work Phone: Hematology/Oncology Comment on above: 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); Elevated sed rate SPP Inflammatory Con ditions - Medication Refill (Benlysta ) Start: 07-13-2023 End: 07-13-2023 Office outpatient new 45 minutes Lois Holm MD Work Phone: [facility] Comment on above: Shortness of breath (Primary Dx); Paroxysmal supraventricular tachycardia; PAC (premature atrial contraction); Current smoker; Systemic lupus erythematosus, unspecified SLE type, unspecified organ involvement status (CMS/HCC); Palpitations; Obstructive sleep apnea syndrome; Morbid obesity (CMS/HCC); Bilateral lower extremity edema Start: 07-06-2023 End: 07-06-2023 Office outpatient visit 25 minutes Kade Richardson MD Work Phone: [facility] Comment on above: Autoimmune disease ( CMS/HCC) (Primary Dx); Autonomic dysfunction; Lumbosacral radiculopathy; Bilateral leg weakness Start: 07-06-2023 End: 07-06-2023 ambulatory KADE RICHARDSON Not Available Start: 07-05-2023 Chart abstracting Kade ramirez MD Work Phone: [facility] Start: 06-10-2023 End: 06-10-2023 ambulatory MANUEL FERRIS Facility:[facility] Start: 06-09-2023 End: 06-09-2023 Office outpatient new 60 minutes Michelle Sharpeel NURSE PRN-HYPERION ESSBASE DEVELOPER Work Phone: [facility] Comment on above: Irregular heart rate (Primary Dx); Essential hypertension; Autonomic dysfunction; Obstructive sleep apnea syndrome; Primary hypertension Start: 06-09-2023 End: 06-09-2023 ambulatory [facility] Start: 06-03-2023 End: 06-03-2023 ambulatory MANUEL Lynne Cristina Facility:[facility] Start: 06-01-2023 End: 06-01-2023 ambulatory [facility] Facility:[facility] Start: 06-01-2023 End: 06-01-2023 ambulatory ZITA ROGERS Not Available Start: 05-26-2023 End: 05-26-2023 Office outpatient visit 40 minutes Christie Phan MD Work Phone: Integrated Medicine Comment on above: Obesity, Class III, BMI >= 40 (Primary Dx); Other chronic pain Start: 05-26-2023 End: 05-26-2023 ambulatory MANUEL Lynne Cristina Facility:[facility] Start: 05-10-2023 End: 05-10-2023 ambulatory ZITA ROGERS Not Available Start: 05-06-2023 End: 05-06-2023 ambulatory ZITA ROGERS Not Available Start: 04-26-2023 End: 04-26-2023 Office outpatient visit 40 minutes Christie Phan MD Work Phone: [facility] Comment on above: Obesity, Class III, BMI >= 40 (Primary Dx); FUO (fever of unknown origin); Other chronic pain Start: 04-26-2023 ambulatory Christie Hays Work Phone: [facility] Comment on above: Phentermine Start: 04-22-2023 Telephone encounter Enma Osuna Hematology/Oncology Comment on above: Results Start: 04-21-2023 End: 04-21-2023 ambulatory ZITA ROGERS Not Available Start: 04-16-2023 End: 04-16-2023 Nursing evaluation of patient and report Hoda Butcher Dre Marshall Work Phone: Hematology/Oncology Comment on above: 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); Elevated sed rate Start: 03-19-2023 End: 03-19-2023 Nursing evaluation of patient and report Hoda Butcher Dre Marshall Work Phone: Hematology/Oncology Comment on above: 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); Elevated sed rate Start: 03-16-2023 Chart [facility]ing [facility] Work Phone: Neurology Comment on above: CMN Start: 03-11-2023 End: 03-11-2023 Nursing evaluation of patient and report Nurse Mroa [facility] Nickie Work Phone: Rheumatology Comment on above: Systemic lupus eryth ematosus, unspecified SLE type, unspecified organ involvement status (HCC) (Primary Dx) Start: 03-01-2023 Telephone encounter Lynne shaw MD Work Phone: Rheumatology Comment on above: Results (Eye Exam) Start: 02-19-2023 End: 02-19-2023 Nursing evaluation of patient and report Hoda Butcher Dre Marshall Work Phone: Hematology/Oncology Comment on above: 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); Elevated sed rate Start: 02-19-2023 End: 02-19-2023 Office outpatient visit 15 minutes Vera Najera MD Work Phone: Hematology/Oncology Comment on [...] deficiency; Elevated sed rate; Bilateral wrist pain; 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; Steroid-induced osteoporosis; 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 Start: 02-04-2023 Patient encounter procedure Clinton Schroeder (Pharmacist) [facility] Comment on above: SPP Inflammatory Con ditions - Treatment Referral (Benlysta); Insurance Authorization ([place] submission pending) Start: 02-04-2023 Telephone encounter Lynen shaw MD Work Phone: Rheumatology Comment on above: Appointment; Orders; Medication Authorization Start: 02-04-2023 End: 02-04-2023 Telemedicine consultation with patient Lynne Ni MD Work Phone: [facility] Start: 01-28-2023 Refill Christie Hays Work Phone: Integrated Medicine Comment on above: Refill Request Start: 01-24-2023 Telephone encounter Lynne shaw MD Work Phone: Rheumatology Comment on above: Results Start: 01-22-2023 End: 01-22-2023 Nursing evaluation of patient and report Va Nurse Dre Marshall Work Phone: Hematology/Oncology Comment on above: 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); Elevated sed rate Start: 01-17-2023 Orders Only Vera nelson MD Work Phone: Hematology/Oncology Comment on [...] patient Misty Nelson MD Work Phone: [facility] Start: 12-24-2022 Refill Christie Hays Work Phone: [facility] Medicine Comment on above: Refill Request Start: 12-18-2022 Telephone encounter Lidia Argueta RN Work Phone: Hematology/Oncology Comment on above: Care Coordination (a ppointment) Start: 12-17-2022 End: 12-18-2022 ambulatory Rebekah Rojas APRN.HYPERION ESSBASE DEVELOPER Work Phone: Hematology/Oncology Comment on above: 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); Chronic fatigue and malaise Start: 12-17-2022 End: 12-18-2022 Telemedicine consultation with patient Rebekah Bob THORPE.HYPERION ESSBASE DEVELOPER Work Phone: [facility] Start: 12-16-2022 Telephone encounter Pamella bernstein RN Work Phone: Hematology/Oncology Comment on above: Appointment Start: 12-08-2022 ambulatory Vera nelson MD Work Phone: Hematology/Oncology Comment on [...] End: 10-22-2022 Office outpatient visit 15 minutes Vera Najera MD Work Phone: Hematology/Oncology Comment on above: 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); Elevated sed rate; High total serum IgM; Chronic fatigue and malaise; Obstructive sleep apnea syndrome Start: 09-24-2022 End: 09-25-2022 ambulatory OLY PARNELL . Facility:[facility] Start: 09-24-2022 End: 09-24-2022 Nursing evaluation of patient and report Hoda Marshall Work Phone: Hematology/Oncology Comment on above: 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); Elevated sed rate Start: 09-10-2022 End: 09-10-[address] MANUEL FERRIS . Facility:[facility] Start: 09-08-2022 Telephone encounter Angelia king [facility] Home Delivery - Compliance Comment on above: Compliance Adherence Start: 09-07-2022 End: 09-07-2022 Office outpatient visit 40 minutes Christie Phan MD Work Phone: [facility] Comment on above: Obesity, Class III, BMI >= 40 (Primary Dx); Polypharmacy; Pre-diabetes Start: 09-01-2022 End: 09-02-[address] MANUEL FERRIS . Facility: Start: 08-29-2022 Refill Lynne Ni MD Work Phone: Rheumatology Comment on above: Refill Request Start: 08-27-2022 End: 08-27-2022 Nursing evaluation of patient and report Hoda Marshall Work Phone: Hematology/Oncology Comment on above: 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); Elevated sed rate Start: 08-27-2022 End: 08-27-2022 ambulatory Rebekah Rojas APRN.CNP Work Phone: Hematology/Oncology Comment on above: 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); Elevated sed rate; High total serum IgM; Chronic fatigue and malaise; JOSE RAFAEL (obstructive sleep apnea) Start: 08-27-2022 End: 08-27-2022 Patient encounter procedure Rebekah Rojas NURSE PRN.HYPERION ESSBASE DEVELOPER Work Phone: [facility] Start: 08-19-2022 Telephone encounter Lynne shaw MD Work Phone: Rheumatology Comment on above: Results Start: 08-15-2022 ambulatory Lynne Ni MD Work Phone: Rheumatology Comment on above: update Start: 08-10-2022 Refill Christie Hays Work Phone: [facility] Comment on above: Refill Request Start: 07-27-2022 End: 07-27-2022 ambulatory Lexus Heck APRN.HYPERION ESSBASE DEVELOPER Work Phone: Neurology Comment on above: JOSE RAFAEL (obstructive sle ep apnea) (Primary Dx) Start: 07-27-2022 End: 07-27-2022 Telemedicine consultation with patient Lexus Heck APRN.HYPERION ESSBASE DEVELOPER Work Phone: [facility] Start: 07-24-2022 ambulatory Lynne Ni MD Work Phone: Rheumatology Comment on above: Blood work Start: 07-24-2022 Telephone encounter Vera hooker MD Work Phone: Hematology/Oncology Comment on above: Orders (Lab Orders E xpire Before Appointment) Start: 07-21-2022 ambulatory Lawanda Miranda MD Work Phone: [facility] Start: 07-21-2022 Patient encounter procedure Lawanda Miranda MD Work Phone: Neurology Comment on above: Appointment Start: 05-20-2022 End: 05-20-2022 Nursing evaluation of patient and report Hoda Marshall Work Phone: Hematology/Oncology Comment on above: 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); Elevated sed rate Start: 05-20-2022 End: 05-20-2022 ambulatory Vera Najera MD Work Phone: Hematology/Oncology Comment on above: High total serum IgM (Primary Dx); Elevated sed rate; Somnolence, daytime; JOSE RAFAEL (obstructive sleep apnea) Start: 05-20-2022 End: 05-20-2022 Patient encounter procedure Vera Najera MD Work Phone: [place] Start: 05-05-2022 ambulatory Lawanda Miranda MD Work [...] Other Start: 03-31-2022 End: 04-01-[address] MANUEL FERRIS . Facility: Start: 03-31-2022 Refill Christie [...] . Facility: Start: 03-18-2022 End: 03-18-2022 ambulatory Vera Najera MD Work Phone: Hematology/Oncology Comment on above: 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); High total serum IgM A1c Start: 03-18-2022 E-mail encounter fro m caregiver Christie Phan MD Work Phone: [facility] Start: 03-18-2022 End: 03-18-2022 Patient encounter procedure Vera Najera MD Work Phone: [place] Start: 03-12-2022 End: 03-13-[address] MANUEL FERRIS . Facility: Start: 03-10-2022 End: 03-10-2022 ambulatory Alhajiasif Kelseyan DO Work Phone: Infectious Disease Comment on above: results Raised level of immu noglobulins (Primary Dx); Wound healing, delayed; Current smoker Start: 03-10-2022 E-mail encounter hansa suarez caregiver Alhaji Head DO Work Phone: [facility] Start: 03-10-2022 End: 03-10-2022 Telemedicine consultation with patient Misty Leslie LEE Work Phone: [place] Start: 03-09-2022 End: 03-10-2022 ambulatory GAY BRITT Facility: Start: 03-09-2022 End: 03-09-2022 Office consultation [...] above: Results Start: 03-04-2022 End: 03-04-2022 ambulatory Vera Najera MD Work Phone: Hematology/Oncology Comment on above: High total serum IgM (Primary Dx); Megaloblastic anemia due to vitamin B12 deficiency; Somnolence, daytime; Snoring; Chronic fatigue and malaise; Obesity, unspecified classification, unspecified obesity type, unspecified whether serious comorbidity present Start: 03-04-2022 End: 03-04-2022 Patient encounter procedure Vera Najera MD Work Phone: [facility] Start: 03-02-2022 Chart abstracting Vera waterman MD Work Phone: Hematology/Oncology Start: 03-02-2022 [...] with patient Alhaji Head DO Work Phone: [facility] Start: 02-14-2022 End: 02-15-[address] MANUEL FERRIS . Facility:[facility]1 Start: 11-26-2021 End: 11-26-2021 ambulatory Mirela Kelsey Other Offerial Other Start: 11-26-2021 Office outpatient vi sit 25 minutes Mirela Kelsey [facility] Infectious Disease Start: 11-17-2021 End: 11-18-2021 ambulatory [...] 10-15-2021 End: 10-15-2021 ambulatory Mirela Kelsey Other Offerial Other Start: 10-15-2021 Office outpatient vi sit 25 minutes Mirela Kelsey [facility] Infectious Disease Start: 10-03-2021 End: [address] MIRELA KELSEY Facility: Start: 09-18-2021 End: 09-18-2021 ambulatory Mirela Kelsey Other Offerial Other Start: 09-18-2021 Telephone encounter Mirela Kelsey [facility] Infectious Disease Start: 09-11-2021 End: 09-11-2021 ambulatory Mirela Kelsey Other Offerial Other Start: 09-11-2021 Office outpatient ne w 45 minutes Mirela Kelsey [facility] Infectious Disease Start: 10-07-2020 End: 10-08-2020 ambulatory JONAS HOLLEY [facility] Start: 10-07-2020 End: 10-07-2020 Subsequent hospital visit by physician [facility] [employer] Jameson Melendez [facility] [employer] Comment on above: Arrived Start: 09-14-2018 End: 09-17-2018 [facility] Date Procedure Procedure Detail Performing Clinician Start: 05-19-2024 Blood count complete auto&auto difrntl wbc Vera Najera MD Work Phone: Start: 04-06-2024 ALL CBC WITH AUTO DIFF Oly WARREN Work Phone: Start: 04-06-2024 ALL THYROID STIM HORMONE Oly WARREN Work Phone: Start: 04-06-2024 ALL THYROXINE (T4) FREE Oly WARREN Work Phone: Start: 04-06-2024 [facility] APTT Oly WARREN Work Phone: Start: 04-06-2024 MLR HEMOGLOBIN A1C Oly WARREN Work Phone: Start: 04-06-2024 SRMCOH PROTHROMBIN T MICHELLE INR W/O COUM Oly WARREN Work Phone: Start: 04-06-2024 [facility] PREG QUANT HCG Oly WARREN Work Phone: Start: 03-23-2024 End: 03-23-2024 Urnls dip stick/tablet rgnt non-auto w/o micrscp Oly WARREN Work Phone: Start: 02-16-2024 Injection of local anesthetic into sacroiliac joint TOOL SUPERVISOR-C Gay Enciso Work Phone: Start: 07-13-2023 ECG 12-LEAD MICHELLE [place] Start: 07-13-2023 Ecg routine ecg w/le ast 12 lds w/i&r Lois Holm MD Work Phone: Start: 06-09-2023 ECG 12-LEAD MICHELLE [place] Start: 06-09-2023 Ecg routine ecg w/le ast 12 lds w/i&r Michelle [place] Mitali NURSE PRN-HYPERION ESSBASE DEVELOPER Work Phone: Start: 09-10-2022 Microscopic observat ion [Identifier] in Cervix by Cyto stain Luan Skipmehul LIVE Work Phone: Start: 09-10-2022 Cytp cerv/vag auto t hin layer prep mnl screen Luan Valdivia DO Work Phone: Start: 10-07-2020 End: 10-07-2020 Cardiac catheterization Jonas Holley MD Work Phone: Start: 10-07-2020 Chloride [Moles/volu me] in Serum or Plasma Jonas Holley MD Work Phone: Start: 10-07-2020 CREATININE W/GFR POI NT OF CARE Jonas Holley MD Work Phone: Start: 10-07-2020 End: 10-07-2020 Gluc bld gluc mntr dev cleared fda spec home use Jonas Holley MD Work Phone: Start: 10-07-2020 Potassium [Moles/vol ume] in Serum or Plasma Jonas Holley MD Work Phone: Start: 10-07-2020 Sodium [Moles/volume ] in Serum or Plasma Jonas Holley MD Work Phone: Start: 10-07-2020 Urine test visual color cmprsn meths Jonas Holley MD Work Phone: Start: 09-14-2018 Radex foot complete minimum 3 views VICTOR MANUEL GUZMAN Plan of Treatment Date Care Activity Detail Author Start: 09-11-2027 Screening for malignant neoplasm of cervix [facility] Start: 09-10-2025 Screening for malignant neoplasm of cervix Pap Smear [facility] Start: 04-06-2025 Adult BMI Screening Adult BMI Screening [facility] Start: 04-06-2025 Tobacco Screening Tobacco Screening [facility] Start: 03-17-2025 Diabetes mellitus screening Diabetes Screening [facility] Start: 11-20-2024 Influenza vaccination Influenza Vaccine (#1) [facility] Comment on above: Postponed from 01/23/2024 (Patient Refus ed) Start: 09-19-2024 End: 09-19-2024 Patient encounter procedure [facility] Comment on above: hEDS with concerns and wants CTD evaluat ion Start: 08-22-2024 End: 08-22-2024 Patient encounter procedure 08/22/2024 1:30 PM EDT Office Visit [facility] [address] [place] [phone] Raj Kitchen MD [address] [place] [address] [facility] Start: 08-01-2024 End: 08-01-2024 Patient encounter procedure 08/01/2024 10:30 AM EDT Office Visit [facility] DERM [address] [place] [phone] Bernabe English MD [address] [place] [address] MABLE SANTIAGO Start: 07-13-2024 End: 07-13-2024 Patient encounter procedure 07/13/2024 9:20 AM EST Office Visit [facility] [address] [place] [address] Lois Holm MD [address] [facility] [address] [place] [address] [facility] Start: 07-03-2024 End: 04-02-2025 25-hydroxyvitamin D3 [Mass/volume] in Serum or Plasma VITAMIN D 25 HYDROXY Lab Routine Vitamin D deficiency Expected: 07/03/2024 (Approximate), Expires: 04/02/2025 [facility] Comment on above: Expected: 07/03/2024 (Approximate), Expi res: 04/02/2025 Start: 07-03-2024 End: 04-02-2025 C reactive protein [Mass/volume] in Serum or Plasma C-REACTIVE PROTEIN Lab Routine Elevated sed rate Elevated C-reactive protein (CRP) Expected: 07/03/2024 (Approximate), Expires: 04/02/2025 [facility] Comment on above: Expected: 07/03/2024 (Approximate), Expi res: 04/02/2025 Start: 07-03-2024 End: 04-02-2025 CBC panel - Blood by Automated count COMPLETE BLOOD COUNT Lab Routine Anemia of chronic disease Expected: 07/03/2024 (Approximate), Expires: 04/02/2025 [facility] Comment on above: Expected: 07/03/2024 (Approximate), Expi res: 04/02/2025 Start: 07-03-2024 End: 04-02-2025 Comprehensive metabolic 2000 panel - Serum or Plasma COMPREHENSIVE METABOLIC PANEL Lab Routine Elevated LFTs Expected: 07/03/2024 (Approximate), Expires: 04/02/2025 [facility] Work Phone: Comment on above: Expected: 07/03/2024 (Approximate), Expi res: 04/02/2025 Start: 07-03-2024 End: 04-02-2025 Erythrocyte sedimentation rate SEDIMENTATION RATE, WESTERGREN Lab Routine Elevated sed rate Elevated C-reactive protein (CRP) Expected: 07/03/2024 (Approximate), Expires: 04/02/2025 [facility] Comment on above: Expected: 07/03/2024 (Approximate), Expi res: 04/02/2025 Start: 06-26-2024 End: 06-26-2024 Nursing evaluation of patient and report 06/26/2024 9:45 AM EST Nurse Visit Hematology/Oncology [address] [facility] [place] [address] Joanna Va Nurse Dre [address] [facility] [place] [address] B12 Hematology/Oncology Comment on above: B12 Start: 06-26-2024 End: 06-26-2024 ambulatory Hematology/Oncology Comment on above: RTC 3 month IVIG for hypogammagl obulinemia Start: 06-26-2024 End: 06-26-2024 Patient encounter procedure 06/26/2024 8:45 AM EST Office Visit [facility] [address] [place] [address] [place] [address] labs [facility] Comment on above: labs Start: 06-14-2024 End: 06-14-2024 Nursing evaluation of patient and report 06/14/2024 9:00 AM EST Nurse Visit [facility] [address] [place] [address] Abdominal Pain/Diarrhea/Bandar S HYPERION ESSBASE DEVELOPER ordered/Patient has prep thru MyChart//cc [facility] Comment on above: Abdominal Pain/Diarrhea/Bandar S HYPERION ESSBASE DEVELOPER order ed/Patient has prep thru MyChart//cc Start: 06-06-2024 End: 06-06-2024 Patient encounter procedure [facility] Comment on above: REFILL- Benlysta- PAx 02/11/25 Start: 05-29-2024 End: 05-29-2024 Nursing evaluation of patient and report 05/29/2024 9:30 AM EST Nurse Visit Hematology/Oncology [address] [facility] [place] [address] Hoda Marshall Nurse Dre [address] [facility] [place] [address] B12 Hematology/Oncology Comment on above: B12 Start: 05-19-2024 End: 05-19-2024 ambulatory 05/19/2024 9:30 AM EST Infusion Center Hematology/Oncology [address] [facility] [place] [address] IVIG for hypogammaglobulinemia Hematology/Oncology Comment on above: IVIG for hypogammaglobulinemia Start: 05-12-2024 End: 05-12-2024 Specialty Pharmacy 05/12/2024 10:00 AM EST Specialty Pharmacy [facility] [id number] [place] [address] Pharmacist, [facility] [address] [place] [address] [place] [address] REFILL- Benlysta- PAx 02/11/25 [facility] Comment on above: REFILL- Benlysta- PAx 02/11/25 Start: 04-28-2024 End: 04-28-2025 US.doppler Extremity arteries - bilateral for physiologic artery study Vas art doppler lwr bilat mult lev/PVR Vascular Ultrasound Routine Peripheral vascular disease, unspecified ([facility]) Cold extremities Systemic lupus erythematosus ([facility]) Expected: 04/28/2024, Expires: 04/28/2025 [facility] Work Phone: Comment on above: Expected: 04/28/2024, Expires: Start: 04-24-2024 End: 04-24-2024 Nursing evaluation of patient and report 04/24/2024 9:30 AM EST Nurse Visit Hematology/Oncology [address] [facility] [place] [address] Hoda Marshall Nurse Dre [address] [facility] [place] [address] B12 Hematology/Oncology Comment on above: B12 Start: 04-18-2024 End: 04-18-2024 Nursing evaluation of patient and report [facility] Comment on above: refer Sibo Start: 04-14-2024 End: 04-14-2024 ambulatory Hematology/Oncology Comment on above: IVIG for hypogammaglobulinemia REFILL- Benlysta- PA x 02/11/25 Start: 04-11-2024 End: 04-11-2024 Specialty Pharmacy [facility] Comment on above: REFILL- Benlysta- PAx 02/11/25- NCA REFILL- Benlysta- PA x 02/11/25 Start: 04-06-2024 End: 2025 US.doppler Extremity arteries - bilateral for physiologic artery study Vas art doppler lwr bilat mult lev/PVR Vascular Ultrasound Routine Cold extremities Pain of lower extremity, unspecified laterality Systemic lupus erythematosus ([facility]) Expected: 04/06/2024, Expires: 2025 [facility] Work Phone: Comment on above: Expected: 04/06/2024, Expires: Start: 03-28-2024 End: 03-28-2024 ambulatory 03/28/2024 1:00 PM [facility] Hematology/Oncology [address] [facility] [address] [place], [place] [id number] Vera Najera MD [address] [place] [address] [place] [address] 13 wk virtual after labs last week Hematology/Oncology Comment on above: 13 wk virtual after labs last week Start: 03-23-2024 End: 03-23-2025 aPTT in Blood by Coagulation assay APTT Lab Routine Menorrhagia with regular cycle Expected: 03/23/2024 (Approximate), Expires: 03/23/2025 [facility] Comment on above: Expected: 03/23/2024 (Approximate), Expi res: 03/23/2025 Start: 03-23-2024 End: 03-23-2025 US for US PELVIS-TRANSVAG IF INDICATED Imaging Routine Menorrhagia with regular cycle Expected: 03/23/2024 (Approximate), Expires: 03/23/2025 [facility] Comment on above: Expected: 03/23/2024 (Approximate), Expi res: 03/23/2025 Start: 03-21-2024 End: 03-21-2024 Nursing evaluation of patient and report 03/21/2024 11:45 AM EDT Nurse Visit Hematology/Oncology [address] [facility] [place] [address] Hoda Marshall Nurse Dre [address] [facility] [place] [address] b12 Hematology/Oncology Comment on above: b12 Start: 03-21-2024 End: 03-21-2024 Patient encounter procedure 03/21/2024 11:15 AM EDT Office Visit [facility] [address] [facility] [place] [address] LAb [facility] Comment on above: LAb Start: 03-20-2024 End: 12-29-2024 25-hydroxyvitamin D3 [Mass/volume] in Serum or Plasma VITAMIN D 25 HYDROXY Lab Routine Vitamin D deficiency Expected: 03/20/2024 (Approximate), Expires: 12/29/2024 [facility] Comment on above: Expected: 03/20/2024 (Approximate), Expi res: 12/29/2024 Start: 03-20-2024 End: 12-29-2024 BLOOD TB SCREEN BLOOD TB SCREEN Lab Routine Screening-pulmonary TB Expected: 03/20/2024 (Approximate), Expires: 12/29/2024 [facility] Comment on above: Expected: 03/20/2024 (Approximate), Expi res: 12/29/2024 Start: 03-20-2024 End: 12-29-2024 C reactive protein [Mass/volume] in Serum or Plasma C-REACTIVE PROTEIN Lab Routine Elevated C-reactive protein (CRP) Elevated sed rate Expected: 03/20/2024 (Approximate), Expires: 12/29/2024 [facility] Comment on above: Expected: 03/20/2024 (Approximate), Expi res: 12/29/2024 Start: 03-20-2024 End: 06-19-2024 CBC W Auto Differential panel - Blood COMPLETE BLOOD COUNT AND DIFFERENTIAL Lab Routine Megaloblastic anemia due to vitamin B12 deficiency Elevated sed rate Obstructive sleep apnea syndrome Expected: 03/20/2024 (Approximate), Expires: 06/19/2024 [facility] Comment on above: Expected: 03/20/2024 (Approximate), Expi res: 06/19/2024 Start: 03-20-2024 End: 06-19-2024 Cobalamin (Vitamin B12) [Mass/volume] in Serum or Plasma VITAMIN B12 Lab Routine Megaloblastic anemia due to vitamin B12 deficiency Elevated sed rate Obstructive sleep apnea syndrome Expected: 03/20/2024 (Approximate), Expires: 06/19/2024 [facility] Comment on above: Expected: 03/20/2024 (Approximate), Expi res: 06/19/2024 Start: 03-20-2024 End: 06-19-2024 Comprehensive metabolic 2000 panel - Serum or Plasma COMPREHENSIVE METABOLIC PANEL Lab Routine Megaloblastic anemia due to vitamin B12 deficiency Elevated sed rate Obstructive sleep apnea syndrome Expected: 03/20/2024 (Approximate), Expires: 06/19/2024 [facility] Work Phone: Comment on above: Expected: 03/20/2024 (Approximate), Expi res: 06/19/2024 Start: 03-20-2024 End: 12-29-2024 Erythrocyte sedimentation rate SEDIMENTATION RATE, WESTERGREN Lab Routine Elevated C-reactive protein (CRP) Elevated sed rate Expected: 03/20/2024 (Approximate), Expires: 12/29/2024 [facility] Work Phone: Comment on above: Expected: 03/20/2024 (Approximate), Expi res: 12/29/2024 Start: 03-20-2024 End: 06-19-2024 Ferritin [Mass/volume] in Serum or Plasma FERRITIN Lab Routine Megaloblastic anemia due to vitamin B12 deficiency Elevated sed rate Obstructive sleep apnea syndrome Expected: 03/20/2024 (Approximate), Expires: 06/19/2024 [facility] Comment on above: Expected: 03/20/2024 (Approximate), Expi res: 06/19/2024 Start: 03-20-2024 End: 06-19-2024 Folate [Mass/volume] in Serum or Plasma FOLATE, SERUM Lab Routine Megaloblastic anemia due to vitamin B12 deficiency Elevated sed rate Obstructive sleep apnea syndrome Expected: 03/20/2024 (Approximate), Expires: 06/19/2024 [facility] Comment on above: Expected: 03/20/2024 (Approximate), Expi res: 06/19/2024 Start: 03-20-2024 End: 06-19-2024 IMMUNOGLOBULINS,IGG,IGA,IG M IMMUNOGLOBULINS,IGG,IGA,IG M Lab Routine Megaloblastic anemia due to vitamin B12 deficiency Elevated sed rate Obstructive sleep apnea syndrome Expected: 03/20/2024 (Approximate), Expires: 06/19/2024 [facility] Comment on above: Expected: 03/20/2024 (Approximate), Expi res: 06/19/2024 Start: 03-20-2024 End: 06-19-2024 Iron and Iron binding capacity panel - Serum or Plasma IRON AND TIBC Lab Routine Megaloblastic anemia due to vitamin B12 deficiency Elevated sed rate Obstructive sleep apnea syndrome Expected: 03/20/2024 (Approximate), Expires: 06/19/2024 [facility] Comment on above: Expected: 03/20/2024 (Approximate), Expi res: 06/19/2024 Start: 03-18-2024 End: 03-18-2024 Patient encounter procedure 03/18/2024 9:00 AM EDT [facility] [address] [place] [address] Lynne Ni MD [address] [place] [address] May offer 03/18/24 Sat [facility] 4th floor in person/virtual/phone for lupus Rheumatology Comment on above: May offer 03/18/24 Sat [facility] 4th floor in person/virtual/phone for lupus Start: 03-16-2024 Patient referral [facility] Work Phone: Start: 03-16-2024 End: 05-16-2025 US Breast - bilateral Bilateral breast US complete Imaging Routine Nipple discharge Expected: 03/16/2024, Expires: 05/16/2025 [facility] Work Phone: Comment on above: Expected: 03/16/2024, [...] 11:45 AM EDT Nurse Visit Hematology/Oncology [address] [place] [address] Hoda Marshall Nurse Dre [address] [facility] [address] b12 Hematology/Oncology Comment on above: b12 Start: 02-22-2024 End: 02-22-2024 Patient encounter procedure 02/22/2024 11:15 AM EDT Office Visit [facility] [address] [facility] [place] [address] LAb [facility] Comment on above: LAb Start: 02-21-2024 End: 02-21-2024 Nursing evaluation of patient and report 02/21/2024 10:45 AM EDT Nurse Visit Hematology/Oncology [address] [place] [address] Hoda Marshall Nurse Dre [address] [place] [address] b12 Hematology/Oncology Comment on above: b12 Start: 02-21-2024 End: 02-21-2024 Patient encounter procedure 02/21/2024 10:30 AM EDT Office Visit [facility] [address] [place] [address] LAb [facility] Comment on above: LAb Start: 02-16-2024 [facility] Start: 02-14-2024 End: 02-14-2024 Follow-up encounter Neurology Comment on above: Cpap follow up REFILL- Benlysta- PA x 02/04/24- NCA 09/2024-, ND 02/23 Start: 02-09-2024 End: 02-09-2024 Patient encounter procedure 02/09/2024 8:00 AM EDT Office Visit [facility]O [address] [facility] [place] [address] Zita Rogers, TOOL SUPERVISOR [address] [facility] [address] [facility] [address], [place] [id number] [facility] NEURO [address] Start: 01-27-2024 End: 04-27-2024 Bacteria identified in Blood by Culture BLOOD CULTURE Microbiology Routine Pseudomonas infection Expected: 01/27/2024, Expires: 04/27/2024 [facility] Work Phone: Comment on above: Expected: 01/27/2024, Expires: Start: 01-27-2024 End: 01-27-2024 Follow-up encounter 01/27/2024 10:00 AM EDT [facility] Infectious Disease [address] [place] [address] [place] [address] [place] [address] follow up Infectious Disease Comment on above: follow up Start: 01-25-2024 End: 01-25-2024 Nursing evaluation of patient and report Hematology/Oncology Comment on above: b12 B12(change date) Start: 01-25-2024 End: 01-25-2024 Patient encounter procedure [facility] Comment on above: LAb NO LAB ORDERS LAb Start: 01-24-2024 Influenza vaccination Influenza Vaccine (#1) [facility] Comment on above: Postponed from 01/22/2023 (Patient Refus ed) Start: 01-23-2024 Covid-19 Vaccine ( season) Covid-19 Vaccine ( season) [facility] Start: 01-23-2024 Covid-19 Vaccine ( season) Covid-19 Vaccine ( season) [facility] Start: 01-23-2024 Influenza vaccination [facility] Start: 01-20-2024 End: 01-20-2024 Specialty Pharmacy [facility] Comment on above: refill - benlysta- NCA 09/2024-- pa exp: 02/04/24- 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 Start: 12-27-2023 End: 12-27-2023 Nursing evaluation of patient and report 12/27/2023 12:00 PM EDT Nurse Visit Hematology/Oncology [address] [facility] [place] [address] Hoda Marshall Nurse Dre [address] [facility] [place] [address] b12 Hematology/Oncology Comment on above: b12 Start: 12-27-2023 End: 12-27-2023 Follow-up encounter 12/27/2023 11:30 AM EDT Visit (SP) Office Hematology/Oncology [address] [facility] [place] [address] Juli Narayanan, PA-C [address] [facility] [place] [address] 13 week follow up, labs 1 week before Hematology/Oncology Comment on above: 13 week follow up, labs 1 week before Start: 12-27-2023 End: 12-27-2023 Patient encounter procedure 12/27/2023 11:15 AM EDT Office Visit [facility] [address] [facility] [place] [address] LAb [facility] Comment on above: LAb Start: 12-13-2023 End: 12-13-2023 Specialty Pharmacy 12/13/2023 10:00 AM EDT Specialty Pharmacy [id number] [place] [address] Pharmacist, [facility] 2 [facility] [place] [address] [place] [address] refill - benlysta- NCA - pa exp: 02/04/24- [facility] Comment on above: refill - benlysta- NCA - pa exp: 02/04/24- Start: 12-10-2023 End: 12-10-2023 Follow-up encounter 12/10/2023 10:45 AM EDT Visit (SP) Office Hematology/Oncology [address] [facility] [place] [address] Vera Najera MD [address] [facility] [place] [address] 13 week follow up, labs 1 week before Hematology/Oncology Comment on above: 13 week follow up, labs 1 week before Start: 12-04-2023 End: 09-03-2024 25-hydroxyvitamin D3 [Mass/volume] in Serum or Plasma VITAMIN D 25 HYDROXY Lab Routine Vitamin D deficiency Expected: 12/04/2023 (Approximate), Expires: 09/03/2024 [facility] Work Phone: Comment on above: Expected: 12/04/2023 (Approximate), Expi res: 09/03/2024 Start: 12-04-2023 End: 09-03-2024 C reactive protein [Mass/volume] in Serum or Plasma C-REACTIVE PROTEIN Lab Routine Elevated sed rate Elevated C-reactive protein (CRP) Expected: 12/04/2023 (Approximate), Expires: 09/03/2024 [facility] Work Phone: Comment on above: Expected: 12/04/2023 (Approximate), Expi res: 09/03/2024 Start: 12-04-2023 End: 09-03-2024 CBC panel - Blood by Automated count COMPLETE BLOOD COUNT Lab Routine Anemia of chronic disease Expected: 12/04/2023 (Approximate), Expires: 09/03/2024 [facility] [facility] Work Phone: Comment on above: Expected: 12/04/2023 (Approximate), Expi res: 09/03/2024 Start: 12-04-2023 End: 09-03-2024 Comprehensive metabolic 2000 panel - Serum or Plasma COMPREHENSIVE METABOLIC PANEL Lab Routine Elevated LFTs Expected: 12/04/2023 (Approximate), Expires: 09/03/2024 [facility] Work Phone: Comment on above: Expected: 12/04/2023 (Approximate), Expi res: 09/03/2024 Start: 12-04-2023 End: 09-03-2024 Erythrocyte sedimentation rate SEDIMENTATION RATE, WESTERGREN Lab Routine Elevated sed rate Elevated C-reactive protein (CRP) Expected: 12/04/2023 (Approximate), Expires: 09/03/2024 [facility] Work Phone: Comment on above: Expected: 12/04/2023 (Approximate), Expi res: 09/03/2024 Start: 12-03-2023 End: 12-03-2023 Nursing evaluation of patient and report 12/03/2023 11:00 AM EDT Nurse Visit Hematology/Oncology [address] [place] [address] Hoda Marshall Nurse Dre [address] [place] [address] b12 Hematology/Oncology Comment on above: b12 Start: 12-03-2023 End: 12-03-2023 Patient encounter procedure 12/03/2023 10:45 AM EDT Office Visit [facility] [address] [place] [address] lab [facility] Comment on above: lab Start: 12-02-2023 End: 09-08-2024 CBC W Auto Differential panel - Blood COMPLETE BLOOD COUNT AND DIFFERENTIAL Lab Routine Megaloblastic anemia due to vitamin B12 deficiency High total serum IgM Expected: 12/02/2023 (Approximate), Expires: 09/08/2024 [facility] Work Phone: Comment on above: Expected: 12/02/2023 (Approximate), Expi res: 09/08/2024 Start: 12-02-2023 End: 09-08-2024 Cobalamin (Vitamin B12) [Mass/volume] in Serum or Plasma VITAMIN B12 Lab Routine Megaloblastic anemia due to vitamin B12 deficiency High total serum IgM Expected: 12/02/2023 (Approximate), Expires: 09/08/2024 [facility] Work Phone: Comment on above: Expected: 12/02/2023 (Approximate), Expi res: 09/08/2024 Start: 12-02-2023 End: 09-08-2024 Comprehensive metabolic 2000 panel - Serum or Plasma COMPREHENSIVE METABOLIC PANEL Lab Routine Megaloblastic anemia due to vitamin B12 deficiency High total serum IgM Expected: 12/02/2023 (Approximate), Expires: 09/08/2024 [facility] Work Phone: Comment on above: Expected: 12/02/2023 (Approximate), Expi res: 09/08/2024 Start: 12-02-2023 End: 03-02-2024 Erythrocyte sedimentation rate SEDIMENTATION RATE, WESTERGREN Lab Routine Megaloblastic anemia due to vitamin B12 deficiency High total serum IgM Expected: 12/02/2023 (Approximate), Expires: 03/02/2024 [facility] Work Phone: Comment on above: Expected: 12/02/2023 (Approximate), Expi res: 03/02/2024 Start: 12-02-2023 End: 09-08-2024 Ferritin [Mass/volume] in Serum or Plasma FERRITIN Lab Routine Megaloblastic anemia due to vitamin B12 deficiency High total serum IgM Expected: 12/02/2023 (Approximate), Expires: 09/08/2024 [facility] Work Phone: Comment on above: Expected: 12/02/2023 (Approximate), Expi res: 09/08/2024 Start: 12-02-2023 End: 09-08-2024 Folate [Mass/volume] in Serum or Plasma FOLATE, SERUM Lab Routine Megaloblastic anemia due to vitamin B12 deficiency High total serum IgM Expected: 12/02/2023 (Approximate), Expires: 09/08/2024 [facility] Work Phone: Comment on above: Expected: 12/02/2023 (Approximate), Expi res: 09/08/2024 Start: 12-02-2023 End: 03-02-2024 IgA [Mass/volume] in Serum or Plasma IMMUNOGLOBULIN A Lab Routine Megaloblastic anemia due to vitamin B12 deficiency High total serum IgM Expected: 12/02/2023 (Approximate), Expires: 03/02/2024 [facility] Work Phone: Comment on above: Expected: 12/02/2023 (Approximate), Expi res: 03/02/2024 Start: 12-02-2023 End: 03-02-2024 IgE [Units/volume] in Serum or Plasma IMMUNOGLOBULIN E Lab Routine Megaloblastic anemia due to vitamin B12 deficiency High total serum IgM Expected: 12/02/2023 (Approximate), Expires: 03/02/2024 [facility] Work Phone: Comment on above: Expected: 12/02/2023 (Approximate), Expi res: 03/02/2024 Start: 12-02-2023 End: 03-02-2024 IgG [Mass/volume] in Serum or Plasma IMMUNOGLOBULIN G Lab Routine Megaloblastic anemia due to vitamin B12 deficiency High total serum IgM Expected: 12/02/2023 (Approximate), Expires: 03/02/2024 [facility] Work Phone: Comment on above: Expected: 12/02/2023 (Approximate), Expi res: 03/02/2024 Start: 12-02-2023 End: 03-02-2024 IgM [Mass/volume] in Serum or Plasma IMMUNOGLOBULIN M Lab Routine Megaloblastic anemia due to vitamin B12 deficiency High total serum IgM Expected: 12/02/2023 (Approximate), Expires: 03/02/2024 [facility] Work Phone: Comment on above: Expected: 12/02/2023 (Approximate), Expi res: 03/02/2024 Start: 12-02-2023 End: 09-08-2024 Iron and Iron binding capacity panel - Serum or Plasma IRON AND TIBC Lab Routine Megaloblastic anemia due to vitamin B12 deficiency High total serum IgM Expected: 12/02/2023 (Approximate), Expires: 09/08/2024 [facility] Work Phone: Comment on above: Expected: 12/02/2023 (Approximate), Expi res: 09/08/2024 Start: 11-29-2023 End: 11-29-2023 Nursing evaluation of patient and report 11/29/2023 2:15 PM EDT Nurse Visit Hematology/Oncology [address] [place] [address] Hoda Marshall Nurse Dre [address] [place] [address] b12 Hematology/Oncology Comment on above: b12 Start: 11-15-2023 End: 11-15-2023 Specialty Pharmacy 11/15/2023 10:00 AM EDT Specialty Pharmacy [facility] [address] [address] Pharmacist, [facility] [address] [place] [address] [place] [address] refill - [email or web address]- NCA - pa exp: 02/04/24- [facility] Comment on above: refill - benlysta- NCA - pa exp: 02/04/24- Start: 10-29-2023 End: 10-29-2023 Nursing evaluation of patient and report 10/29/2023 11:00 AM EDT Nurse Visit Hematology/Oncology [address] [place] [address] Hoda Marshall Nurse Dre [address] [facility] [facility] [place] [address] b12 Hematology/Oncology Comment on above: b12 Start: 10-15-2023 End: 10-15-2023 Specialty Pharmacy 10/15/2023 10:00 AM EDT Specialty Pharmacy [facility] [address] [place] [address] [place] [address] Pharmacist, [facility] [address] [place] [address] [place] [address] refill - [email or web address]-Thursdays- pa exp: 02/04/24-l/m 10/11 [facility] Comment on above: refill - benlysta-Thursdays- pa exp: 01/22 08/14-l/m 10/11 Start: 10-12-2023 End: 10-12-2023 Specialty Pharmacy 10/12/2023 10:00 AM EDT Specialty Pharmacy [facility] [address] [place], [place] [id number] Pharmacist, [facility] [address] [place] [address] [place] [address] refill - [email or web address]-Thursdays- pa exp: 02/04/24- [facility] Comment on above: refill - [email or web address]-Thursdays- pa exp: 01/22 08/14- Start: 10-05-2023 End: 10-05-2023 Patient encounter procedure 10/05/2023 8:00 AM EDT [facility] [address] [place] [address] Lynne Ni MD [address] [place], [place] [id number] 6 mo f/u for Lupus Rheumatology Comment on above: 6 mo f/u for Lupus Start: 10-01-2023 End: 10-01-2023 Nursing evaluation of patient and report 10/01/2023 11:00 AM EDT Nurse Visit Hematology/Oncology [address] [facility] [place] [address] Hoda Marshall Nurse Dre [address] [facility] [place] [address] b12 Hematology/Oncology Comment on above: b12 Start: 09-16-2023 End: 09-16-2023 Specialty Pharmacy 09/16/2023 10:00 AM EDT Specialty Pharmacy [facility] [address] [place] [id number] Pharmacist, [facility] [address] [place] [address] [place] [address] refill - [email or web address]-ursdays- pa exp: 02/04/24-lvm [facility] Comment on above: refill - benlysta-Thursdays- pa exp: 01/22 08/14-lvm Start: 09-13-2023 End: 09-13-2023 Patient encounter procedure 09/13/2023 9:00 AM EDT Office Visit [facility] [address] [place] [address] Kade Richardson MD [address] [place] [id number] [facility] Start: 07-19-2023 End: 07-19-2023 Patient encounter procedure [facility] Start: 07-15-2023 End: 07-15-2023 Patient encounter procedure 07/15/2023 10:50 AM EST Office Visit [facility] [address] [place] [address] Bernabe English MD [address] [place] [address] [facility] Start: 07-06-2023 End: 07-06-2023 Patient encounter procedure 07/06/2023 2:30 PM EST Office Visit [facility] [address] [facility] [address] [place] [phone] Kade Richardson MD [address] [place] [address] [id number] [facility] [address] Start: 07-06-2023 End: 07-06-2024 Protein electrophoresis, serum Protein electrophoresis, serum Lab Routine Autoimmune disease (CMS/HCC) Autonomic dysfunction Expected: 07/06/2023 (Approximate), Expires: 07/06/2024 [facility] Work Phone: Comment on above: Expected: 07/06/2023 (Approximate), Expi res: 07/06/2024 Start: 07-06-2023 End: 07-06-2024 Protein electrophoresis, urine Protein electrophoresis, urine Lab Routine Autoimmune disease (CMS/HCC) Autonomic dysfunction Expected: 07/06/2023 (Approximate), Expires: 07/06/2024 [facility] Comment on above: Expected: 07/06/2023 (Approximate), Expi res: 07/06/2024 Start: 06-09-2023 End: 06-09-2024 Holter monitor study Holter Or Event Remote [employer] [facility] Routine Irregular heart rate Expected: 06/09/2023 (Approximate), Expires: 06/09/2024 [facility] Work Phone: Comment on above: Expected: 06/09/2023 (Approximate), Expi res: 06/09/2024 Start: 06-09-2023 End: 06-09-2024 Lipid 1996 panel - Serum or Plasma Lipid Panel Lab Routine Primary hypertension Expected: 06/09/2023 (Approximate), Expires: 06/09/2024 [facility] Work Phone: Comment on above: Expected: 06/09/2023 (Approximate), Expi res: 06/09/2024 Start: 06-09-2023 End: 06-09-2024 Thyrotropin [Units/volume] in Serum or Plasma Thyroid Stimulating Hormone Lab Routine Irregular heart rate Expected: 06/09/2023 (Approximate), Expires: 06/09/2024 [facility] Work Phone: Comment on above: Expected: 06/09/2023 (Approximate), Expi res: 06/09/2024 Start: 06-09-2023 End: 06-09-2024 Thyroxine (T4) free [Mass/volume] in Serum or Plasma Thyroxine, Free Lab Routine Irregular heart rate Expected: 06/09/2023 (Approximate), Expires: 06/09/2024 [facility] Work Phone: Comment on above: Expected: [...] D deficiency Expected: 04/25/2023 (Approximate), Expires: 01/25/2024 [facility] Work Phone: Comment on above: Expected: 04/25/2023 (Approximate), Expi res: 01/25/2024 Start: 04-25-2023 End: 01-25-2024 C reactive protein [Mass/volume] in Serum or Plasma C-REACTIVE PROTEIN (CRP) Lab Routine Elevated sed rate Elevated C-reactive protein (CRP) Expected: 04/25/2023 (Approximate), Expires: 01/25/2024 [facility] Work Phone: Comment on above: Expected: 04/25/2023 (Approximate), Expi res: 01/25/2024 Start: 04-25-2023 End: 01-25-2024 CBC panel - Blood by Automated count CBC Lab Routine Anemia of chronic disease Expected: 04/25/2023 (Approximate), Expires: 01/25/2024 [facility] Work Phone: Comment on above: Expected: 04/25/2023 (Approximate), Expi res: 01/25/2024 Start: 04-25-2023 End: 01-25-2024 Comprehensive metabolic 2000 panel - Serum or Plasma COMP METABOLIC PANEL Lab Routine Elevated LFTs Expected: 04/25/2023 (Approximate), Expires: 01/25/2024 [facility] Work Phone: Comment on above: Expected: 04/25/2023 (Approximate), Expi res: 01/25/2024 Start: 04-25-2023 End: 01-25-2024 Erythrocyte sedimentation rate SED RATE WESTERGREN Lab Routine Elevated sed rate Elevated C-reactive protein (CRP) Expected: 04/25/2023 (Approximate), Expires: 01/25/2024 [facility] Work Phone: Comment on above: Expected: 04/25/2023 (Approximate), Expi res: 01/25/2024 Start: 04-20-2023 COVID-19 Vaccine (4 - Pfizer risk series) COVID-19 Vaccine (4 - Pfizer risk series) [facility] Start: 04-20-2023 Covid-19 Vaccine ( season) Covid-19 Vaccine () [facility] Start: 04-20-2023 Covid-19 Vaccine () Covid-19 Vaccine () [facility] Start: 04-16-2023 End: 02-20-2024 CBC W Auto Differential panel - Blood CBC + DIFF Lab Routine Megaloblastic anemia due to vitamin B12 deficiency Elevated sed rate Chronic fatigue and malaise High total serum IgM JOSE RAFAEL (obstructive sleep apnea) Expected: 04/16/2023 (Approximate), Expires: 02/20/2024 [facility] Work Phone: Comment on above: Expected: 04/16/2023 (Approximate), Expi res: 02/20/2024 Start: 04-16-2023 End: 02-20-2024 Cobalamin (Vitamin B12) [Mass/volume] in Serum or Plasma VITAMIN B12 BLOOD Lab Routine Megaloblastic anemia due to vitamin B12 deficiency Elevated sed rate Chronic fatigue and malaise High total serum IgM JOSE RAFAEL (obstructive sleep apnea) Expected: 04/16/2023 (Approximate), Expires: 02/20/2024 [facility] Work Phone: Comment on above: Expected: 04/16/2023 (Approximate), Expi res: 02/20/2024 Start: 04-16-2023 End: 02-20-2024 Comprehensive metabolic 2000 panel - Serum or Plasma COMP METABOLIC PANEL Lab Routine Megaloblastic anemia due to vitamin B12 deficiency Elevated sed rate Chronic fatigue and malaise High total serum IgM JOSE RAFAEL (obstructive sleep apnea) Expected: 04/16/2023 (Approximate), Expires: 02/20/2024 [facility] Work Phone: Comment on above: Expected: 04/16/2023 (Approximate), Expi res: 02/20/2024 Start: 04-16-2023 End: 02-20-2024 Ferritin [Mass/volume] in Serum or Plasma FERRITIN BLD Lab Routine Megaloblastic anemia due to vitamin B12 deficiency Elevated sed rate Chronic fatigue and malaise High total serum IgM JOSE RAFAEL (obstructive sleep apnea) Expected: 04/16/2023 (Approximate), Expires: 02/20/2024 [facility] Work Phone: Comment on above: Expected: 04/16/2023 (Approximate), Expi res: 02/20/2024 Start: 04-16-2023 End: 02-20-2024 Folate [Mass/volume] in Serum or Plasma FOLATE SERUM Lab Routine Megaloblastic anemia due to vitamin B12 deficiency Elevated sed rate Chronic fatigue and malaise High total serum IgM JOSE RAFAEL (obstructive sleep apnea) Expected: 04/16/2023 (Approximate), Expires: 02/20/2024 [facility] Work Phone: Comment on above: Expected: 04/16/2023 (Approximate), Expi res: 02/20/2024 Start: 04-16-2023 End: 02-20-2024 Iron and Iron binding capacity panel - Serum or Plasma IRON + TIBC Lab Routine Megaloblastic anemia due to vitamin B12 deficiency Elevated sed rate Chronic fatigue and malaise High total serum IgM JOSE RAFAEL (obstructive sleep apnea) Expected: 04/16/2023 (Approximate), Expires: 02/20/2024 [facility] Work Phone: Comment on above: Expected: 04/16/2023 (Approximate), Expi res: 02/20/2024 Start: 03-17-2023 Diabetes mellitus screening Diabetes Screening [facility] Start: 03-10-2023 End: 06-09-2023 Insulin [Units/volume] in Serum or Plasma INSULIN ASSAY BLOOD Lab Routine Insulin resistance, unspecified Expected: 03/10/2023, Expires: 06/09/2023 [facility] Work Phone: Comment on above: Expected: 03/10/2023, Expires: 4 Start: 03-10-2023 End: 06-09-2023 INSULIN ANTIBODY BLD INSULIN ANTIBODY BLD Lab Routine Insulin resistance, unspecified Expected: 03/10/2023, Expires: 06/09/2023 [facility] Work Phone: Comment on above: Expected: 03/10/2023, Expires: 4 Start: 02-11-2023 End: 02-08-2024 [id number] [Mass/volume] in Serum or Plasma B2 MICROGLOBULIN B Lab Routine Megaloblastic anemia due to vitamin B12 deficiency High total serum IgM Elevated sed rate Expected: 02/11/2023 (Approximate), Expires: 02/08/2024 [facility] Work Phone: Comment on above: Expected: 02/11/2023 (Approximate), Expi res: 02/08/2024 Start: 02-11-2023 End: 02-08-2024 Calcium.ionized [Moles/volume] in Blood CALCIUM IONIZED BLOOD Lab Routine Megaloblastic anemia due to vitamin B12 deficiency High total serum IgM Elevated sed rate Expected: 02/11/2023 (Approximate), Expires: 02/08/2024 [facility] Work Phone: Comment on above: Expected: 02/11/2023 (Approximate), Expi res: 02/08/2024 Start: 02-11-2023 End: 02-08-2024 CBC W Auto Differential panel - Blood CBC + DIFF Lab Routine Megaloblastic anemia due to vitamin B12 deficiency High total serum IgM Elevated sed rate Expected: 02/11/2023 (Approximate), Expires: 02/08/2024 [facility] Work Phone: Comment on above: Expected: 02/11/2023 (Approximate), Expi res: 02/08/2024 Start: 02-11-2023 End: 02-08-2024 Cobalamin (Vitamin B12) [Mass/volume] in Serum or Plasma VITAMIN B12 BLOOD Lab Routine Megaloblastic anemia due to vitamin B12 deficiency High total serum IgM Elevated sed rate Expected: 02/11/2023 (Approximate), Expires: 02/08/2024 [facility] Work Phone: Comment on above: Expected: 02/11/2023 (Approximate), Expi res: 02/08/2024 Start: 02-11-2023 End: 02-08-2024 Comprehensive metabolic 2000 panel - Serum or Plasma COMP METABOLIC PANEL Lab Routine Megaloblastic anemia due to vitamin B12 deficiency High total serum IgM Elevated sed rate Expected: 02/11/2023 (Approximate), Expires: 02/08/2024 [facility] Work Phone: Comment on above: Expected: 02/11/2023 (Approximate), Expi res: 02/08/2024 Start: 02-11-2023 End: 02-08-2024 Ferritin [Mass/volume] in Serum or Plasma FERRITIN BLD Lab Routine Megaloblastic anemia due to vitamin B12 deficiency High total serum IgM Elevated sed rate Expected: 02/11/2023 (Approximate), Expires: 02/08/2024 [facility] Work Phone: Comment on above: Expected: 02/11/2023 (Approximate), Expi res: 02/08/2024 Start: 02-11-2023 End: 02-08-2024 Folate [Mass/volume] in Serum or Plasma FOLATE SERUM Lab Routine Megaloblastic anemia due to vitamin B12 deficiency High total serum IgM Elevated sed rate Expected: 02/11/2023 (Approximate), Expires: 02/08/2024 [facility] Work Phone: Comment on above: Expected: 02/11/2023 (Approximate), Expi res: 02/08/2024 Start: 02-11-2023 End: 02-08-2024 Iron and Iron binding capacity panel - Serum or Plasma IRON + TIBC Lab Routine Megaloblastic anemia due to vitamin B12 deficiency High total serum IgM Elevated sed rate Expected: 02/11/2023 (Approximate), Expires: 02/08/2024 [facility] Work Phone: Comment on above: Expected: 02/11/2023 (Approximate), Expi res: 02/08/2024 Start: 02-11-2023 End: 04-13-2023 KAPPA/FARMER,FREE,SER KAPPA/FARMER,FREE,SER Lab Routine Megaloblastic anemia due to vitamin B12 deficiency High total serum IgM Elevated sed rate Expected: 02/11/2023 (Approximate), Expires: 04/13/2023 [facility] Work Phone: Comment on above: Expected: 02/11/2023 (Approximate), Expi res: 04/13/2023 Start: 02-11-2023 End: 02-08-2024 Lactate dehydrogenase [Enzymatic activity/volume] in Serum or Plasma LD LACTATE DEHYDRO Lab Routine Megaloblastic anemia due to vitamin B12 deficiency High total serum IgM Elevated sed rate Expected: 02/11/2023 (Approximate), Expires: 02/08/2024 [facility] Work Phone: Comment on above: Expected: 02/11/2023 (Approximate), Expi res: 02/08/2024 Start: 02-11-2023 End: 02-08-2024 MONOCLONAL PROTEIN, SERUM (BLOOD) MONOCLONAL PROTEIN, SERUM (BLOOD) Lab Routine Megaloblastic anemia due to vitamin B12 deficiency High total serum IgM Elevated sed rate Expected: 02/11/2023 (Approximate), Expires: 02/08/2024 [facility] Work Phone: Comment on above: Expected: 02/11/2023 (Approximate), Expi res: 02/08/2024 Start: 02-11-2023 End: 02-08-2024 Phosphate [Mass/volume] in Serum or Plasma PHOSPHORUS INORGANIC Lab Routine Megaloblastic anemia due to vitamin B12 deficiency High total serum IgM Elevated sed rate Expected: 02/11/2023 (Approximate), Expires: 02/08/2024 [facility] Work Phone: Comment on above: Expected: 02/11/2023 (Approximate), Expi res: 02/08/2024 Start: 02-11-2023 End: 02-08-2024 PROTEIN ELECTROPHORESIS SERUM W/INTERP PROTEIN ELECTROPHORESIS SERUM W/INTERP Lab Routine Megaloblastic anemia due to vitamin B12 deficiency High total serum IgM Elevated sed rate Expected: 02/11/2023 (Approximate), Expires: 02/08/2024 [facility] Work Phone: Comment on above: Expected: 02/11/2023 (Approximate), Expi res: 02/08/2024 Start: 02-11-2023 End: 02-08-2024 Urate [Mass/volume] in Serum or Plasma URIC ACID BLOOD Lab Routine Megaloblastic anemia due to vitamin B12 deficiency High total serum IgM Elevated sed rate Expected: 02/11/2023 (Approximate), Expires: 02/08/2024 [facility] Work Phone: Comment on above: Expected: 02/11/2023 (Approximate), Expi res: 02/08/2024 Start: 01-22-2023 Influenza vaccination [facility] Start: 12-17-2022 End: 10-23-2023 CBC W Auto Differential panel - Blood CBC + DIFF Lab Routine Megaloblastic anemia due to vitamin B12 deficiency Expected: 12/17/2022 (Approximate), Expires: 10/23/2023 [facility] Work Phone: Comment on above: Expected: 12/17/2022 (Approximate), Expi res: 10/23/2023 Start: 12-17-2022 End: 10-23-2023 Cobalamin (Vitamin B12) [Mass/volume] in Serum or Plasma VITAMIN B12 BLOOD Lab Routine Megaloblastic anemia due to vitamin B12 deficiency Expected: 12/17/2022 (Approximate), Expires: 10/23/2023 [facility] Work Phone: Comment on above: Expected: 12/17/2022 (Approximate), Expi res: 10/23/2023 Start: 12-17-2022 End: 10-23-2023 Comprehensive metabolic 2000 panel - Serum or Plasma COMP METABOLIC PANEL Lab Routine Megaloblastic anemia due to vitamin B12 deficiency Expected: 12/17/2022 (Approximate), Expires: 10/23/2023 [facility] Work Phone: Comment on above: Expected: 12/17/2022 (Approximate), Expi res: 10/23/2023 Start: 12-17-2022 End: 10-23-2023 Ferritin [Mass/volume] in Serum or Plasma FERRITIN BLD Lab Routine Megaloblastic anemia due to vitamin B12 deficiency Expected: 12/17/2022 (Approximate), Expires: 10/23/2023 [facility] Work Phone: Comment on above: Expected: 12/17/2022 (Approximate), Expi res: 10/23/2023 Start: 12-17-2022 End: 10-23-2023 Folate [Mass/volume] in Serum or Plasma FOLATE SERUM Lab Routine Megaloblastic anemia due to vitamin B12 deficiency Expected: 12/17/2022 (Approximate), Expires: 10/23/2023 [facility] Work Phone: Comment on above: Expected: 12/17/2022 (Approximate), Expi res: 10/23/2023 Start: 12-17-2022 End: 10-23-2023 Iron and Iron binding capacity panel - Serum or Plasma IRON + TIBC Lab Routine Megaloblastic anemia due to vitamin B12 deficiency Expected: 12/17/2022 (Approximate), Expires: 10/23/2023 [facility] Work Phone: Comment on above: Expected: 12/17/2022 (Approximate), Expi res: 10/23/2023 Start: 10-23-2022 End: 12-23-2022 25-hydroxyvitamin D3 [Mass/volume] in Serum or Plasma VITAMIN D 25 HYDROXY Lab Routine Megaloblastic anemia due to vitamin B12 deficiency Elevated sed rate High total serum IgM Chronic fatigue and malaise JOSE RAFAEL (obstructive sleep apnea) Expected: 10/23/2022, Expires: 12/23/2022 [facility] Work Phone: Comment on above: Expected: 10/23/2022, Expires: Start: 10-23-2022 End: 12-23-2022 C reactive protein [Mass/volume] in Serum or Plasma C-REACTIVE PROTEIN (CRP) Lab Routine Megaloblastic anemia due to vitamin B12 deficiency Elevated sed rate High total serum IgM Chronic fatigue and malaise JOSE RAFAEL (obstructive sleep apnea) Expected: 10/23/2022, Expires: 12/23/2022 [facility] Work Phone: Comment on above: Expected: 10/23/2022, Expires: Start: 10-23-2022 End: 12-23-2022 CBC W Auto Differential panel - Blood CBC + DIFF Lab Routine Megaloblastic anemia due to vitamin B12 deficiency Elevated sed rate High total serum IgM Chronic fatigue and malaise JOSE RAFAEL (obstructive sleep apnea) Expected: 10/23/2022, Expires: 12/23/2022 [facility] Work Phone: Comment on above: Expected: 10/23/2022, Expires: Start: 10-23-2022 End: 12-23-2022 Cobalamin (Vitamin B12) [Mass/volume] in Serum or Plasma VITAMIN B12 BLOOD Lab Routine Megaloblastic anemia due to vitamin B12 deficiency Elevated sed rate High total serum IgM Chronic fatigue and malaise JOSE RAFAEL (obstructive sleep apnea) Expected: 10/23/2022, Expires: 12/23/2022 [facility] Work Phone: Comment on above: Expected: 10/23/2022, Expires: Start: 10-23-2022 End: 12-23-2022 Comprehensive metabolic 2000 panel - Serum or Plasma COMP METABOLIC PANEL Lab Routine Megaloblastic anemia due to vitamin B12 deficiency Elevated sed rate High total serum IgM Chronic fatigue and malaise JOSE RAFAEL (obstructive sleep apnea) Expected: 10/23/2022, Expires: 12/23/2022 [facility] Work Phone: Comment on above: Expected: 10/23/2022, Expires: Start: 10-23-2022 End: 12-23-2022 Erythrocyte sedimentation rate SED RATE WESTERGREN Lab Routine Megaloblastic anemia due to vitamin B12 deficiency Elevated sed rate High total serum IgM Chronic fatigue and malaise JOSE RAFAEL (obstructive sleep apnea) Expected: 10/23/2022, Expires: 12/23/2022 [facility] Work Phone: Comment on above: Expected: 10/23/2022, Expires: Start: 10-23-2022 End: 12-23-2022 Lactate dehydrogenase [Enzymatic activity/volume] in Serum or Plasma LD LACTATE DEHYDRO Lab Routine Megaloblastic anemia due to vitamin B12 deficiency Elevated sed rate High total serum IgM Chronic fatigue and malaise JOSE RAFAEL (obstructive sleep apnea) Expected: 10/23/2022, Expires: 12/23/2022 [facility] Work Phone: Comment on above: Expected: 10/23/2022, Expires: Start: 10-23-2022 End: 12-23-2022 MONOCLONAL PROTEIN, SERUM (BLOOD) MONOCLONAL PROTEIN, SERUM (BLOOD) Lab Routine Megaloblastic anemia due to vitamin B12 deficiency Elevated sed rate High total serum IgM Chronic fatigue and malaise JOSE RAFAEL (obstructive sleep apnea) Expected: 10/23/2022, Expires: 12/23/2022 [facility] Work Phone: Comment on above: Expected: 10/23/2022, Expires: Start: 10-23-2022 End: 12-23-2022 PROT ELECT SERUM WITH DANA AND INTERP PROT ELECT SERUM WITH DANA AND INTERP Lab Routine Megaloblastic anemia due to vitamin B12 deficiency Elevated sed rate High total serum IgM Chronic fatigue and malaise JOSE RAFAEL (obstructive sleep apnea) Expected: 10/23/2022, Expires: 12/23/2022 [facility] Work Phone: Comment on above: Expected: 10/23/2022, Expires: 3 Start: 09-19-2022 End: 08-20-2023 CBC panel - Blood by Automated count CBC Lab Routine Anemia of chronic disease Expected: 09/19/2022 (Approximate), Expires: 08/20/2023 [facility] Work Phone: Comment on above: Expected: 09/19/2022 (Approximate), Expi res: 08/20/2023 Start: 09-19-2022 End: 08-20-2023 Comprehensive metabolic 2000 panel - Serum or Plasma COMP METABOLIC PANEL Lab Routine Elevated LFTs Expected: 09/19/2022 (Approximate), Expires: 08/20/2023 [facility] Work Phone: Comment on above: Expected: 09/19/2022 (Approximate), Expi res: 08/20/2023 Start: 09-19-2022 End: 11-19-2022 TPMT PHENOTYPE/ENZYME ACTIVITY TPMT PHENOTYPE/ENZYME ACTIVITY Lab Routine 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 custodial 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 Expected: 09/19/2022 (Approximate), Expires: 11/19/2022 [facility] Work Phone: Comment on above: Expected: 09/19/2022 (Approximate), Expi res: 11/19/2022 Start: 08-28-2022 End: 10-28-2022 25-hydroxyvitamin D3 [Mass/volume] in Serum or Plasma VITAMIN D 25 HYDROXY Lab Routine Megaloblastic anemia due to vitamin B12 deficiency Elevated sed rate High total serum IgM Chronic fatigue and malaise Expected: 08/28/2022 (Approximate), Expires: 10/28/2022 [facility] Work Phone: Comment on above: Expected: 08/28/2022 (Approximate), Expi res: 10/28/2022 Start: 08-28-2022 End: 07-26-2023 [id number] [Mass/volume] in Serum or Plasma B2 MICROGLOBULIN B Lab Routine Megaloblastic anemia due to vitamin B12 deficiency Elevated sed rate High total serum IgM Chronic fatigue and malaise Expected: 08/28/2022 (Approximate), Expires: 07/26/2023 [facility] Work Phone: Comment on above: Expected: 08/28/2022 (Approximate), Expi res: 07/26/2023 Start: 08-28-2022 End: 10-28-2022 C reactive protein [Mass/volume] in Serum or Plasma C-REACTIVE PROTEIN (CRP) Lab Routine Megaloblastic anemia due to vitamin B12 deficiency Elevated sed rate High total serum IgM Chronic fatigue and malaise Expected: 08/28/2022 (Approximate), Expires: 10/28/2022 [facility] Work Phone: Comment on above: Expected: 08/28/2022 (Approximate), Expi res: 10/28/2022 Start: 08-28-2022 End: 07-26-2023 Calcium.ionized [Moles/volume] in Blood CALCIUM IONIZED BLOOD Lab Routine Megaloblastic anemia due to vitamin B12 deficiency Elevated sed rate High total serum IgM Chronic fatigue and malaise Expected: 08/28/2022 (Approximate), Expires: 07/26/2023 [facility] Work Phone: Comment on above: Expected: 08/28/2022 (Approximate), Expi res: 07/26/2023 Start: 08-28-2022 End: 07-26-2023 CBC W Auto Differential panel - Blood CBC + DIFF Lab Routine Megaloblastic anemia due to vitamin B12 deficiency Elevated sed rate High total serum IgM Chronic fatigue and malaise Expected: 08/28/2022 (Approximate), Expires: 07/26/2023 [facility] Work Phone: Comment on above: Expected: 08/28/2022 (Approximate), Expi res: 07/26/2023 Start: 08-28-2022 End: 10-28-2022 Cobalamin (Vitamin B12) [Mass/volume] in Serum or Plasma VITAMIN B12 BLOOD Lab Routine Megaloblastic anemia due to vitamin B12 deficiency Elevated sed rate High total serum IgM Chronic fatigue and malaise Expected: 08/28/2022 (Approximate), Expires: 10/28/2022 [facility] Work Phone: Comment on above: Expected: 08/28/2022 (Approximate), Expi res: 10/28/2022 Start: 08-28-2022 End: 07-26-2023 Comprehensive metabolic 2000 panel - Serum or Plasma COMP METABOLIC PANEL Lab Routine Megaloblastic anemia due to vitamin B12 deficiency Elevated sed rate High total serum IgM Chronic fatigue and malaise Expected: 08/28/2022 (Approximate), Expires: 07/26/2023 [facility] Work Phone: Comment on above: Expected: 08/28/2022 (Approximate), Expi res: 07/26/2023 Start: 08-28-2022 End: 10-28-2022 Erythrocyte sedimentation rate SED RATE WESTERGREN Lab Routine Megaloblastic anemia due to vitamin B12 deficiency Elevated sed rate High total serum IgM Chronic fatigue and malaise Expected: 08/28/2022 (Approximate), Expires: 10/28/2022 [facility] Work Phone: Comment on above: Expected: 08/28/2022 (Approximate), Expi res: 10/28/2022 Start: 08-28-2022 End: 10-28-2022 KAPPA/FARMER,FREE,SER KAPPA/FARMER,FREE,SER Lab Routine Megaloblastic anemia due to vitamin B12 deficiency Elevated sed rate High total serum IgM Chronic fatigue and malaise Expected: 08/28/2022 (Approximate), Expires: 10/28/2022 [facility] Work Phone: Comment on above: Expected: 08/28/2022 (Approximate), Expi res: 10/28/2022 Start: 08-28-2022 End: 07-26-2023 Lactate dehydrogenase [Enzymatic activity/volume] in Serum or Plasma LD LACTATE DEHYDRO Lab Routine Megaloblastic anemia due to vitamin B12 deficiency Elevated sed rate High total serum IgM Chronic fatigue and malaise Expected: 08/28/2022 (Approximate), Expires: 07/26/2023 [facility] Work Phone: Comment on above: Expected: 08/28/2022 (Approximate), Expi res: 07/26/2023 Start: 08-28-2022 End: 07-26-2023 MONOCLONAL PROTEIN, SERUM (BLOOD) MONOCLONAL PROTEIN, SERUM (BLOOD) Lab Routine Megaloblastic anemia due to vitamin B12 deficiency Elevated sed rate High total serum IgM Chronic fatigue and malaise Expected: 08/28/2022 (Approximate), Expires: 07/26/2023 [facility] Work Phone: Comment on above: Expected: 08/28/2022 (Approximate), Expi res: 07/26/2023 Start: 08-28-2022 End: 07-26-2023 Phosphate [Mass/volume] in Serum or Plasma PHOSPHORUS INORGANIC Lab Routine Megaloblastic anemia due to vitamin B12 deficiency Elevated sed rate High total serum IgM Chronic fatigue and malaise Expected: 08/28/2022 (Approximate), Expires: 07/26/2023 [facility] Work Phone: Comment on above: Expected: 08/28/2022 (Approximate), Expi res: 07/26/2023 Start: 08-28-2022 End: 07-26-2023 PROTEIN ELECTROPHORESIS SERUM W/INTERP PROTEIN ELECTROPHORESIS SERUM W/INTERP Lab Routine Megaloblastic anemia due to vitamin B12 deficiency Elevated sed rate High total serum IgM Chronic fatigue and malaise Expected: 08/28/2022 (Approximate), Expires: 07/26/2023 [facility] Work Phone: Comment on above: Expected: 08/28/2022 (Approximate), Expi res: 07/26/2023 Start: 08-28-2022 End: 07-26-2023 Urate [Mass/volume] in Serum or Plasma URIC ACID BLOOD Lab Routine Megaloblastic anemia due to vitamin B12 deficiency Elevated sed rate High total serum IgM Chronic fatigue and malaise Expected: 08/28/2022 (Approximate), Expires: 07/26/2023 [facility] Work Phone: Comment on above: Expected: 08/28/2022 (Approximate), Expi res: 07/26/2023 Start: 07-15-2022 End: 05-20-2023 [id number] [Mass/volume] in Serum or Plasma B2 MICROGLOBULIN B Lab Routine High total serum IgM Expected: 07/15/2022 (Approximate), Expires: 05/20/2023 [facility] Work Phone: Comment on above: Expected: 07/15/2022 (Approximate), Expi res: 05/20/2023 Start: 07-15-2022 End: 05-20-2023 Calcium.ionized [Moles/volume] in Blood CALCIUM IONIZED BLOOD Lab Routine High total serum IgM Expected: 07/15/2022 (Approximate), Expires: 05/20/2023 [facility] Work Phone: Comment on above: Expected: 07/15/2022 (Approximate), Expi res: 05/20/2023 Start: 07-15-2022 End: 05-20-2023 CBC W Auto Differential panel - Blood CBC + DIFF Lab Routine High total serum IgM Expected: 07/15/2022 (Approximate), Expires: 05/20/2023 [facility] Work Phone: Comment on above: Expected: 07/15/2022 (Approximate), Expi res: 05/20/2023 Start: 07-15-2022 End: 05-20-2023 Comprehensive metabolic 2000 panel - Serum or Plasma COMP METABOLIC PANEL Lab Routine High total serum IgM Expected: 07/15/2022 (Approximate), Expires: 05/20/2023 [facility] Work Phone: Comment on above: Expected: 07/15/2022 (Approximate), Expi res: 05/20/2023 Start: 07-15-2022 End: 09-14-2022 KAPPA/FARMER,FREE,SER KAPPA/FARMER,FREE,SER Lab Routine High total serum IgM Expected: 07/15/2022 (Approximate), Expires: 09/14/2022 [facility] Work Phone: Comment on above: Expected: 07/15/2022 (Approximate), Expi res: 09/14/2022 Start: 07-15-2022 End: 05-20-2023 Lactate dehydrogenase [Enzymatic activity/volume] in Serum or Plasma LD LACTATE DEHYDRO Lab Routine High total serum IgM Expected: 07/15/2022 (Approximate), Expires: 05/20/2023 [facility] Work Phone: Comment on above: Expected: 07/15/2022 (Approximate), Expi res: 05/20/2023 Start: 07-15-2022 End: 05-20-2023 MONOCLONAL PROTEIN, SERUM (BLOOD) MONOCLONAL PROTEIN, SERUM (BLOOD) Lab Routine High total serum IgM Expected: 07/15/2022 (Approximate), Expires: 05/20/2023 [facility] Work Phone: Comment on above: Expected: 07/15/2022 (Approximate), Expi res: 05/20/2023 Start: 07-15-2022 End: 05-20-2023 Phosphate [Mass/volume] in Serum or Plasma PHOSPHORUS INORGANIC Lab Routine High total serum IgM Expected: 07/15/2022 (Approximate), Expires: 05/20/2023 [facility] Work Phone: Comment on above: Expected: 07/15/2022 (Approximate), Expi res: 05/20/2023 Start: 07-15-2022 End: 05-20-2023 PROTEIN ELECTROPHORESIS SERUM W/INTERP PROTEIN ELECTROPHORESIS SERUM W/INTERP Lab Routine High total serum IgM Expected: 07/15/2022 (Approximate), Expires: 05/20/2023 [facility] Work Phone: Comment on above: Expected: 07/15/2022 (Approximate), Expi res: 05/20/2023 Start: 07-15-2022 End: 05-20-2023 Urate [Mass/volume] in Serum or Plasma URIC ACID BLOOD Lab Routine High total serum IgM Expected: 07/15/2022 (Approximate), Expires: 05/20/2023 [facility] Work Phone: Comment on above: Expected: 07/15/2022 (Approximate), Expi res: 05/20/2023 Start: 06-05-2022 End: 03-05-2023 25-hydroxyvitamin D3 [Mass/volume] in Serum or Plasma VITAMIN D 25 HYDROXY Lab Routine Vitamin D deficiency Expected: 06/05/2022 (Approximate), Expires: 03/05/2023 [facility] Work Phone: Comment on above: Expected: 06/05/2022 (Approximate), Expi res: 03/05/2023 Start: 06-05-2022 End: 03-05-2023 C reactive protein [Mass/volume] in Serum or Plasma C-REACTIVE PROTEIN (CRP) Lab Routine Elevated sed rate Elevated C-reactive protein (CRP) Expected: 06/05/2022 (Approximate), Expires: 03/05/2023 [facility] Work Phone: Comment on above: Expected: 06/05/2022 (Approximate), Expi res: 03/05/2023 Start: 06-05-2022 End: 03-05-2023 Cobalamin (Vitamin B12) [Mass/volume] in Serum or Plasma VITAMIN B12 BLOOD Lab Routine Vitamin B12 deficiency Expected: 06/05/2022 (Approximate), Expires: 03/05/2023 [facility] Work Phone: Comment on above: Expected: 06/05/2022 (Approximate), Expi res: 03/05/2023 Start: 06-05-2022 End: 03-05-2023 Erythrocyte sedimentation rate SED RATE WESTERGREN Lab Routine Elevated sed rate Elevated C-reactive protein (CRP) Expected: 06/05/2022 (Approximate), Expires: 03/05/2023 [facility] Work Phone: Comment on above: Expected: 06/05/2022 (Approximate), Expi res: 03/05/2023 Start: 05-06-2022 End: 03-18-2023 [id number] [Mass/volume] in Serum or Plasma B2 MICROGLOBULIN B Lab Routine Megaloblastic anemia due to vitamin B12 deficiency High total serum IgM Expected: 05/06/2022 (Approximate), Expires: 03/18/2023 [facility] Work Phone: Comment on above: Expected: 05/06/2022 (Approximate), Expi res: 03/18/2023 Start: 05-06-2022 End: 03-18-2023 Calcium.ionized [Moles/volume] in Blood CALCIUM IONIZED BLOOD Lab Routine Megaloblastic anemia due to vitamin B12 deficiency High total serum IgM Expected: 05/06/2022 (Approximate), Expires: 03/18/2023 [facility] Work Phone: Comment on above: Expected: 05/06/2022 (Approximate), Expi res: 03/18/2023 Start: 05-06-2022 End: 03-18-2023 CBC W Auto Differential panel - Blood CBC + DIFF Lab Routine Megaloblastic anemia due to vitamin B12 deficiency High total serum IgM Expected: 05/06/2022 (Approximate), Expires: 03/18/2023 [facility] Work Phone: Comment on above: Expected: 05/06/2022 (Approximate), Expi res: 03/18/2023 Start: 05-06-2022 End: 03-18-2023 Comprehensive metabolic 2000 panel - Serum or Plasma COMP METABOLIC PANEL Lab Routine Megaloblastic anemia due to vitamin B12 deficiency High total serum IgM Expected: 05/06/2022 (Approximate), Expires: 03/18/2023 [facility] Work Phone: Comment on above: Expected: 05/06/2022 (Approximate), Expi res: 03/18/2023 Start: 05-06-2022 End: 03-18-2023 Ferritin [Mass/volume] in Serum or Plasma FERRITIN BLD Lab Routine Megaloblastic anemia due to vitamin B12 deficiency High total serum IgM Expected: 05/06/2022 (Approximate), Expires: 03/18/2023 [facility] Work Phone: Comment on above: Expected: 05/06/2022 (Approximate), Expi res: 03/18/2023 Start: 05-06-2022 End: 03-18-2023 Iron and Iron binding capacity panel - Serum or Plasma IRON + TIBC Lab Routine Megaloblastic anemia due to vitamin B12 deficiency High total serum IgM Expected: 05/06/2022 (Approximate), Expires: 03/18/2023 [facility] Work Phone: Comment on above: Expected: 05/06/2022 (Approximate), Expi res: 03/18/2023 Start: 05-06-2022 End: 03-18-2023 Lactate dehydrogenase [Enzymatic activity/volume] in Serum or Plasma LD LACTATE DEHYDRO Lab Routine Megaloblastic anemia due to vitamin B12 deficiency High total serum IgM Expected: 05/06/2022 (Approximate), Expires: 03/18/2023 [facility] Work Phone: Comment on above: Expected: 05/06/2022 (Approximate), Expi res: 03/18/2023 Start: 05-06-2022 End: 03-18-2023 MONOCLONAL PROTEIN, SERUM (BLOOD) MONOCLONAL PROTEIN, SERUM (BLOOD) Lab Routine Megaloblastic anemia due to vitamin B12 deficiency High total serum IgM Expected: 05/06/2022 (Approximate), Expires: 03/18/2023 [facility] Work Phone: Comment on above: Expected: 05/06/2022 (Approximate), Expi res: 03/18/2023 Start: 05-06-2022 End: 03-18-2023 Phosphate [Mass/volume] in Serum or Plasma PHOSPHORUS INORGANIC Lab Routine Megaloblastic anemia due to vitamin B12 deficiency High total serum IgM Expected: 05/06/2022 (Approximate), Expires: 03/18/2023 [facility] Work Phone: Comment on above: Expected: 05/06/2022 (Approximate), Expi res: 03/18/2023 Start: 05-06-2022 End: 03-18-2023 PROTEIN ELECTROPHORESIS SERUM W/INTERP PROTEIN ELECTROPHORESIS SERUM W/INTERP Lab Routine Megaloblastic anemia due to vitamin B12 deficiency High total serum IgM Expected: 05/06/2022 (Approximate), Expires: 03/18/2023 [facility] Work Phone: Comment on above: Expected: 05/06/2022 (Approximate), Expi res: 03/18/2023 Start: 05-06-2022 End: 03-18-2023 Urate [Mass/volume] in Serum or Plasma URIC ACID BLOOD Lab Routine Megaloblastic anemia due to vitamin B12 deficiency High total serum IgM Expected: 05/06/2022 (Approximate), Expires: 03/18/2023 [facility] Work Phone: Comment on above: Expected: 05/06/2022 (Approximate), Expi res: 03/18/2023 Start: 04-05-2022 COVID-19 VACCINE (5 - Pfizer risk series) COVID-19 VACCINE (5 - Pfizer risk series) [facility] Start: 03-09-2022 End: 05-09-2022 Hemoglobin A1c in Blood HGB A1C Lab Routine Elevated glucose Expected: 03/09/2022, Expires: 05/09/2022 [facility] Work Phone: Comment on above: Expected: 03/09/2022, Expires: 2 Start: 02-24-2022 End: 04-26-2022 BARTONELLA AB PANEL BARTONELLA AB PANEL Lab Routine Swelling of lymph nodes Expected: 02/24/2022, Expires: 04/26/2022 [facility] Work Phone: Comment on above: Expected: 02/24/2022, Expires: 2 Start: 02-24-2022 End: 04-26-2022 BRUCELLA AB TOTAL BRUCELLA AB TOTAL Lab Routine Swelling of lymph nodes Expected: 02/24/2022, Expires: 04/26/2022 [facility] Work Phone: Comment on above: Expected: 02/24/2022, Expires: 2 Start: 02-24-2022 End: 04-26-2022 Cryptococcus sp Ag [Presence] in Unspecified specimen by Latex agglutination CRYPTOCOCCUS AG DET Microbiology Routine Swelling of lymph nodes Expected: 02/24/2022, Expires: 04/26/2022 [facility] Work Phone: Comment on above: Expected: 02/24/2022, Expires: 2 Start: 02-24-2022 End: 04-26-2022 HISTOPLASMA AG URINE HISTOPLASMA AG URINE Lab Routine Swelling of lymph nodes Expected: 02/24/2022, Expires: 04/26/2022 [facility] Work Phone: Comment on above: Expected: 02/24/2022, Expires: 2 Start: 02-24-2022 End: 04-26-2022 HIV 1 RNA [#/volume] (viral load) in Serum or Plasma by YESSI with probe detection HIV RNA VIRAL LOAD Lab Routine Swelling of lymph nodes Expected: 02/24/2022, Expires: 04/26/2022 [facility] Work Phone: Comment on above: Expected: 02/24/2022, Expires: 2 Start: 02-24-2022 End: 04-26-2022 SYPHILIS TOTAL W/REFLEX SYPHILIS TOTAL W/REFLEX Lab Routine Swelling of lymph nodes Expected: 02/24/2022, Expires: 04/26/2022 [facility] Work Phone: Comment on above: Expected: 02/24/2022, Expires: 2 Start: 01-22-2022 Influenza vaccination [facility] Start: 08-24-2021 COVID-19 VACCINE (4 - Booster for Pfizer series) COVID-19 VACCINE (4 - Booster for Pfizer series) [facility] Start: 01-22-2021 Influenza vaccination Flu vaccine (Season Ended) [facility] Work Phone: Start: 2020 Lipid panel Lipid screen [facility] Phone: Start: 2020 Mammography [facility] Start: 2020 Screening for malignant neoplasm of breast [facility] Start: 2010 HPV TESTING HPV TESTING [facility] Start: 2010 Screening for malignant neoplasm of cervix [facility] Start: 2002 DTaP/Tdap/Td Vaccines (1 - Tdap) DTaP/Tdap/Td Vaccines (1 - Tdap) [facility] Start: 2001 PAP TESTING PAP TESTING [facility] Start: 2001 Screening for malignant neoplasm of cervix [facility] Start: 10-05-1999 DTaP,Tdap and Td Vaccines (1 - Tdap) DTaP,Tdap and Td Vaccines (1 - Tdap) [facility] Start: 10-05-1999 DTaP/Tdap/Td vaccine (1 - Tdap) DTaP/Tdap/Td vaccine (1 - Tdap) [facility] Phone: Start: 10-05-1999 Hepatitis B Vaccine (1 of 3 - 19+ 3-dose series) Hepatitis B Vaccine (1 of 3 - 19+ 3-dose series) [facility] Start: 10-05-1999 Pneumococcal vaccination Pneumococcal Vaccine (1 of 2 - PCV) [facility] Start: 10-05-1999 SHINGRIX VACCINE (1 of 2) SHINGRIX VACCINE (1 of 2) [facility] Start: 10-05-1999 Urine microalbumin profile [facility] Start: 10-05-1999 Zoster Vaccines (1 of 2) Zoster Vaccines (1 of 2) [facility] Start: 1998 Adult BMI Follow Up Plan Adult BMI Follow Up Plan [facility] Start: 1998 Adult BMI Screening Adult BMI Screening [facility] Start: 1998 Anxiety Screening Anxiety Screening [facility] Start: 1998 Hepatitis C screening Hepatitis C Screening [facility] Start: 1998 HIV SCREENING HIV SCREENING [facility] Start: 1998 HIV screening HIV Screening [facility] Start: 10-05-1995 HIV screening HIV screen [facility] Phone: Start: 1992 COVID-19 Vaccine (1) COVID-19 Vaccine (1) [facility] Phone: Start: 1992 Depression Screening Depression Screening [facility] Start: 1992 Tobacco Screening Tobacco Screening [facility] Start: 10-05-1991 Screening for malignant neoplasm of cervix Cervical Cancer Screening [facility] Start: 1986 PNEUMOCOCCAL (1 - PCV) PNEUMOCOCCAL (1 - PCV) [facility] Start: 1986 Pneumococcal vaccination [facility] Start: 1986 Pneumococcal Vaccine: Pediatrics (0 to 5 Years) and At-Risk Patients (6 to 64 Years) (1 - PCV) Pneumococcal Vaccine: Pediatrics (0 to 5 Years) and At-Risk Patients (6 to 64 Years) (1 - PCV) [facility] Start: 1981 MMR Vaccines (1 of 1 - Standard series) MMR Vaccines (1 of 1 - Standard series) [facility] Start: 1981 Varicella vaccination Varicella Vaccines (1 of 2 - 2-dose childhood series) [facility] Start: 1981 Varicella vaccine (1 of 2 - 2-dose childhood series) Varicella vaccine (1 of 2 - 2-dose childhood series) [facility] Phone: Start: 1980 HEPATITIS B (1 of 3 - 3-dose series) HEPATITIS B (1 of 3 - 3-dose series) [facility] Start: 1980 Hepatitis B Vaccine (1 of 3 - 3-dose series) Hepatitis B Vaccine (1 of 3 - 3-dose series) [facility] Start: 1980 Hepatitis B Vaccines (1 of 3 - 3-dose series) Hepatitis B Vaccines (1 of 3 - 3-dose series) [facility] Start: 1980 Hepatitis C screening Hepatitis C screen [facility] Work Phone: Start: 1980 HIV screening HIV Screening [facility] Start: 1980 Lipid panel Lipid Panel [facility] Start: 1980 Screening for osteoporosis Bone Density Scan [facility] Start: 1980 Tobacco Counseling Tobacco Counseling [facility] Start: 1980 Yearly Adult Physical Yearly Adult Physical [facility] Cardiovascular funct ion eval w/tilt table w/mntr TILT TABLE EVALUATION Cardiology Routine POTS (postural orthostatic tachycardia syndrome) Ordered: 03/09/2022 [facility] Work Phone: Comment on above: Ordered: 03/09/2022 CBC W Auto Different ial panel - Blood CBC and differential Lab Routine Menorrhagia with regular cycle Ordered: 03/23/2024 [facility] Work Phone: Comment on above: Ordered: 03/23/2024 CT Abdomen W contrast IV [facility] End: 03-05-2024 DXA-AXIAL SKELETON DXA-AXIAL SKELETON Radiology Routine Steroid-induced osteoporosis 1 Occurrences starting 02/04/2023 until 03/05/2024 [facility] Work Phone: Comment on above: 1 Occurrences starting 02/04/2023 until 03/05/2024 End: 03-05-2024 DXA-FOREARM SKELETON DXA-FOREARM SKELETON Radiology Routine Steroid-induced osteoporosis 1 Occurrences starting 02/04/2023 until 03/05/2024 [facility] Work Phone: Comment on above: 1 Occurrences starting 02/04/2023 until 03/05/2024 ECG 12 Lead ECG 12 Lead ECG Routine Irregular heart rate 06/09/2023 8:28 AM EST [facility] Work Phone: hCG, quantitative, hCG, quantitative, Lab Routine Menorrhagia with regular cycle Ordered: 03/23/2024 [facility] Comment on above: Ordered: 03/23/2024 Hemoglobin A1c/Hemoglobin.total in Blood Hemoglobin A1c Lab Routine Menorrhagia with regular cycle Ordered: 03/23/2024 [facility] Comment on above: Ordered: 03/23/2024 End: 03-09-2023 HOME SLEEP APNEA TEST (HSAT) HOME SLEEP APNEA TEST (HSAT) Procedures Routine Somnolence, daytime Snoring 1 Occurrences starting 03/09/2022 until 03/09/2023 [facility] Work Phone: Comment on above: 1 Occurrences starting 03/09/2022 until 03/09/2023 Oxygen therapy [[facility] Data Set] Initiate Oxygen Therapy Protocol Respiratory Care Routine Daily until discontinued starting 10/07/2020 [facility] Work Phone: Comment on above: Daily until discontinued starting 2020 Patient Education Know your Meds Jorge Luis Non Diagnostic Block [facility] Work Phone: Patient referral [facility] Work Phone: End: 03-04-2023 Polysomnogram POLYSOMNOGRAM (PSG) Procedures Routine Somnolence, daytime Snoring 1 Occurrences starting 03/04/2022 until 03/04/2023 [facility] Work Phone: Comment on above: 1 Occurrences starting 03/04/2022 until 03/04/2023 Prothrombin time (PT ) in Blood by Coagulation assay Protime-INR Lab Routine Menorrhagia with regular cycle Ordered: 03/23/2024 [facility] [employer] Comment on above: Ordered: 03/23/2024 Thyrotropin [Units/v olume] in Serum or Plasma TSH Lab Routine Menorrhagia with regular cycle Ordered: 03/23/2024 [facility] Comment on above: Ordered: 03/23/2024 Thyroxine (T4) free [Mass/volume] in Serum or Plasma T4, free Lab Routine Menorrhagia with regular cycle Ordered: 03/23/2024 [facility] Comment on above: Ordered[facility] 03/23/2024 [facility] Immunizations Immunization Date Immunization Notes Care Provider Fa cility 02-23-2023 COVID-19 vaccine, ag e 12+ yr, 2022- season ([employer]) Lynne Ni MD Work Phone: [facility] Payers Date Payer Category Payer Medicaid [facility] A[facility] [id number] 2024 Self-pay [id number] 2017 Private Health Insurance [facility] MEDICAID [id number] 2017 Unknown [employer] [id number] 2017-Present [address] [place] [address] [id number] 2009 Medicaid [employer] [id number] 2009-Present [phone] [address] [place] [address] Medicaid [id number] 2009 Medicaid [id number]. [id number] 1980 Unknown [id number] 2.16.840.1.032992.3.579.2. 185 1980 Unknown [id number] 2.16.840.1.027446.3.579.2. 175 1980 Unknown [id number] 2.16.840.1.940831.3.579.2. 593 1980 Unknown [id number] 2.16.840.1.682142.3.579.2. 593 1980 Unknown [id number] 2.16.840.1.990055.3.579.2. 593 1980 Unknown [id number] 2.16.840.1.907636.3.579.2. 593 1980 Unknown [id number] 2.16.840.1.379842.3.579.2. 593 1980 Unknown [id number] 2.16.840.1.516433.3.579.2. 59 1980 Unknown [id number] 2.16.840.1.737338.3.579.2. 1980 Unknown [id number] 2.16.840.1.610695.3.579.2. 1980 Unknown [id number] 2.16.840.1.107730.3.579.2. 1980 Unknown [id number] 2.16.840.1.757370.3.579.2. 1980 Unknown [id number] 2.840.1.996958.3.579.2. 1243 1980 Unknown [id number] 2.16.840.1.408494.3.579.2. 1243 1980 Unknown [id number] 2.840.1.109884.3.579.2. 1243 1980 Unknown [id number] 2.840.1.510594.3.579.2. 1258 1980 Unknown [id number] 2..840.1.192638.3.579.2. 1258 1980 Unknown [id number] 2.16.840.1.094365.3.579.2. 1258 1980 Unknown [id number] 2.840.1.817427.3.579.2. 1258 1980 Unknown [id number] 2.16.840.1.834185.3.579.2. 1258 1980 Unknown [id number] 2.16.840.1.176245.3.579.2. 1258 1980 Unknown [id number] 2.16.840.1.860387.3.579.2. 1258 1980 Unknown [id number] 2.16.840.1.908806.3.579.2. 1258 1980 Unknown [id number] 2.16.840.1.533326.3.579.2. 1258 1980 Unknown [id number] 2.16.840.1.124485.3.579.2. 1258 1980 Unknown [id number] 2.16.840.1.813358.3.579.2. 1258 1980 Unknown [id number] 2.16.840.1.255403.3.579.2. 1258 1980 Unknown [id number] 2.16.840.1.532886.3.579.2. 1258 1980 Unknown [id number] 2.16.840.1.859937.3.579.2. 1258 1980 Unknown [id number] 2.16.840.1.811254.3.579.2. 1258 1980 Unknown [id number] 2.16.840.1.699480.3.579.2. 1258 1980 Unknown [id number] 2.16.840.1.984663.3.579.2. 1258 1980 Unknown [id number] 2.16.840.1.689893.3.579.2. 1258 1980 Unknown [id number] 2.16.840.1.845243.3.579.2. 1259 1959 Unknown [id number] 1959 Unknown [id number] Unknown [id number] 2.16.840.1.154410.3.579.2. 531 Social History Date Type Detail Facility Start: 05-24-1995 End: 11-08-2023 Tobacco smoking status TXIS Current every day smoker [facility] Start: 10-07-2020 End: 11-08-2023 Tobacco use and exposure Never used [facility] Start: 10-07-2020 End: 06-02-2024 Alcohol intake Lifetime non-drinker (finding) [facility] Work Phone: Start: 05-17-2021 History SDOH Alcohol Frequency 1 [facility] Phone: Start: 1980 Sex Assigned At Not on file M [employer] Phone: Start: 02-22-2022 End: 07-13-2023 Exposure to SARS-CoV-2 (event) Not sure [facility] Start: 05-24-1995 History of tobacco use Cigarette Smo ker [facility] Start: 05-31-2014 End: 04-10-2024 Cigarettes smoked current (pack per day) - Reported 1 [facility] Start: 10-24-2021 End: 03-18-2024 Alcohol intake Current non-drinker of alcohol (finding) [facility] Start: 10-14-2021 End: 10-24-2021 Exposure to SARS-CoV-2 (event) Unable to assess [facility] Start: 10-22-2022 End: 04-10-2024 Sex Assigned At [facility] Adult Depression Screening Assessment 1 [facility] Start: 10-19-2022 Tobacco Comment Current smoker , everyday, 11-20 cigarettes/day [facility] Start: 05-31-2023 Alcohol Comment Caffeine intak e : > 4 cups per day [facility] Start: 08-19-2016 End: 12-16-2023 Tobacco smoking status NHIS Smoker (finding) [facility] Start: 1980 Sex Assigned At Female F [facility] Start: 07-02-2016 Sex Female (finding) [facility] Goals Date Patient Goal Desired Activity /State Clinical Notes 05-31-2014 to 05-15-2024 Deisy Jaime LSW - 05/15/2024 9:09 AM Luna Zambrano - 05/12/2024 12:41 PM Radha Cohn MA - 04/26/2024 9:32 AM Radha Cohn MA - 04/26/2024 9:32 AM EST Note Date & Type Note [facility] 05-15-2024 Note [facility] 05-15-2024 History of Present illness Narrative Patient's name appears on the [facility] First Time Treatment Report for a non-oncology treatment. No psychosocial assessment is indicated. BILL Rosenberg Goals of Care Advance Directives are not on file. documented in this encounter [facility] 05-12-2024 History of Present illness Narrative [facility] [...] been reviewed prior to dispensing the medication. Lump Maker Assessment Patient confirmed: Yes Med/dose confirmed: Yes Supplies needed: No supplies needed Missed doses: No Estimated days supply on hand: 1 Copay amount: 0 Payment confirmed: Yes Delivery method: FedEx Signature required: Waived on patient request Delivery address: [address] [place] [address] Delivery date: 05/16/24 Questions or concerns for the pharmacist?: No Did you have any side effects believed to be related to this medication, that resulted in hospitalization?: No Current Outpatient Medications on File Prior to Visit Medication Sig ergocalciferol 50,000 unit capsule (VITAMIN D2, DRISDOL) Take 1cap by mouth twice a week x 10weeks, then once a week with food. predniSONE (DELTASONE) 10 mg tablet TAKE 1 [...] Inject 200mg (1 pen) subcutaneously once weekly pregabalin (LYRICA) 75 mg capsule take 1 [...] facility-administered medications on file prior to visit. [facility] [facility] CLINICAL ASSESSMENT - INFLAMMATORY CONDITIONS V6: Assessment to use: Refill Date of influenza vaccination reminder: 02/15/2024 Date of most recent vaccination assessment: 02/15/2024 Treatment Plan Information: M32.19 - Systemic lupus erythematosus with other organ involvement Benlysta - Inject 200mg (1 pen) subcutaneously once weekly Est. Tx Plan Start Date: No information available Estimated Start Date Info: No information available Est. Estimated Treatment Duration: Until loss of efficacy and/or no longer tolerated. Luna Emanuel documented in this encounter [facility] 05-12-2024 Note [facility] 04-26-2024 Nurse Note Patient Identification confirmed: yes. Injection given and documented on MAR per provider order. Radha Schofield MA [facility] 04-26-2024 Nurse Note Patient Identification confirmed: yes. Injection given and documented on MAR per provider order. Radha Schofield MA documented in this encounter [facility] 04-11-2024 Note [facility] 04-10-2024 Miscellaneous Notes Patient requested this appointment be rescheduled for the end of April. She has been scheduled for 05/19, she is all set. Thank you! Sherrie Cortes SUBQ products (eg, 20% [Cuvitru, Hizentra, Xembify]) or IM products (eg, 16% [GamaSTAN]) intravenously. It would depend upon insurance coverage and would be done as a retail prescription at designated insurance specialty pharmacy. Elpidio Arce, RolandD, BCOP Discussed with Mason. He would prefer [...] advise. Sherrie Cortes documented in this encounter [facility] 04-10-2024 Telephone encounter Note Patient requested this appointment be rescheduled for the end of April. She has been scheduled for 05/19, she is all set. Thank you! Sherrie Cortes [facility] 04-10-2024 Telephone encounter Note SUBQ products (eg, 20% [Cuvitru, Hizentra, Xembify]) or IM products (eg, 16% [GamaSTAN]) intravenously. It would depend upon insurance coverage and would be done as a retail prescription at designated insurance specialty pharmacy. Elpidio Arce, PharmD, BCOP [facility] Work Phone: 04-10-2024 Telephone encounter Note [...] appt per pt request Enma Hamm RN [facility] 04-10-2024 Telephone encounter Note Called to discuss with pt. She was researching online and found SCIG a weekly subq injection to give herself that is less dose, and has less side effects. Pharmacy/Mason: please advise Enma Hamm RN [facility] 04-10-2024 Telephone encounter Note Really sorry - I don't recall the home infusion of IVIG - I think it is safer to give it to her in-house as IV so we can monitor infusion reactions. Sorry if I created a misunderstanding. [facility] 04-10-2024 History of Present illness Narrative Subjective Patient ID: Ariadna Haley is a 43 y.o. female who presents for Ear Problem (Possible thrush, ear pain) Pt states she has had a raw throat for the past mo. Tx with nystatin twice and clotrimazole. Pain resolved but pt states her throat still feels swollen. Also has intermittent right ear pain. Family History Problem Relation Name Age of Onset Crohn's disease Mother Nieves Thyroid disease Mother Nieves Stomach cancer Father Micheal Cancer Father Micheal No Known Problems Sister 1 No Known Problems Daughter Lung disease Son Other (lung issue) Child 1 son with lung issue, 3 daughters Diabetes Maternal Grandmother Clelaura Heart failure Maternal Grandmother Clelaura Rheum arthritis Maternal Grandmother Clelaura Active Ambulatory Problems Diagnosis Date Noted Autoimmune disease ([facility]) 06/01/2023 Fibromyalgia 06/01/2023 Autonomic dysfunction 06/01/2023 Dizziness [...] Tobacco use disorder 07/06/2023 Cytomegalovirus infection (HCC) (CMS/HCC) 07/06/2023 Depression, recurrent (CMS/HCC) 06/09/2023 Discoid lupus erythematosus (CMS/HCC) 02/14/2022 Disturbance of skin sensation 07/06/2023 Elevated sed rate 03/05/2021 High total serum IgM 03/05/2021 Enthesopathy of hip region 07/06/2023 Essential hypertension (CMS/HCC) 06/09/2023 Excessive and frequent menstruation with irregular cycle 09/24/2022 Family history of Crohn's disease 03/05/2021 Hair loss 03/05/2021 Hyperlipidemia (CMS/HCC) 05/31/2014 USP 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 02/04/2023 Long-term use of high-risk medication 06/15/2022 Long-term use of Plaquenil 03/05/2021 LPRD (laryngopharyngeal reflux disease) 07/06/2023 Megaloblastic anemia due to vitamin B12 deficiency 03/04/2022 Myalgia 07/06/2023 Obesity, Class III, BMI 40-49.9 (morbid obesity) (CMS/HCC) 09/07/2022 Obstructive sleep apnea syndrome 05/20/2022 Oral [...] Shortness of breath 07/13/2023 Paroxysmal supraventricular tachycardia (CMS/HCC) 07/13/2023 PAC (premature atrial contraction) 07/13/2023 Degenerative [...] thrush Prediabetes Sleep apnea Weakness of limb Past Surgical History: Procedure Laterality Date CYST REMOVAL DILATION AND CURETTAGE LYMPH NODE BIOPSY 2020 OTHER SURGICAL HISTORY cervical cryo VAGINAL DELIVERY Allergies Allergen Reactions Codeine Other Reaction(s): Other: [...] she just experienced side effects. Current Outpatient Medications on File Prior to Visit Medication Sig Dispense Refill acetaminophen (Tylenol) 325 MG tablet every 4 (four) hours. ALPRAZolam (Xanax) 0.25 MG tablet TAKE 1 TABLET BY MOUTH EVERY DAY NEEDED FOR 30 DAYS aspirin 81 MG chewable tablet Chew 81 mg in the morning. azaTHIOprine (Imuran) 50 MG tablet Take 150 mg by mouth in the morning. baclofen (Lioresal) 5 MG tablet TAKE 1 TABLET BY MOUTH IN THE MORNING, EVENING AND BEFORE BEDTIME 270 tablet 1 belimumab (Benlysta) 200 MG/ML injection Inject 200 mg under the skin 1 (one) time per week Chlorhexidine Gluconate (Hibiclens) 4 % solution Apply 1 Application topically Daily LATHER ONTO AFFECTED AREAS ON THE BODY AND RINSE FROM THE NECK DOWN 2 TIMES A WEEK AVOIDING THE FACE. 30 day supply 236 mL 11 clindamycin (Clindagel) 1 % gel APPLY TO AFFECTED AREA DAILY 75 mL 11 Clobetasol Propionate 0.05 % shampoo 1 application to the scalp in the shower topically 3-4 times a week 236 mL 11 diclofenac sodium 1 % gel APPLY DIRECTED TO AFFECTED AREA NEEDED ergocalciferol (Vitamin D2) 1.25 MG (72591 UT) capsule Take 50,000 Units by mouth 1 (one) time per week fluocinonide (Lidex) 0.05 % external solution Apply to affected areas on the scalp, up to twice a day when flared, 30 day supply 20 mL 11 fluticasone (Flonase) 50 MCG/ACT nasal spray Administer 2 sprays into each nostril in the morning and 2 sprays before bedtime. Shake gently. Before first use, prime pump. After use, clean tip and replace cap.. 16 g 12 folic acid (Folvite) 1 MG tablet Take 1 mg by mouth in the morning. hydroxychloroquine (Plaquenil) 400 MG tablet 1 (one) time each day at the same time. ibuprofen 200 MG tablet every 8 (eight) hours. metoprolol tartrate (Lopressor) 50 MG tablet Take 100 mg by mouth in the morning and 100 mg before bedtime. norethindrone-ethinyl estradiol-iron (Lo Loestrin Fe) 1 MG-10 MCG / 10 MCG tablet Take 1 tablet by mouth Daily Take 1 tablet by mouth daily 28 tablet 11 nystatin (Mycostatin) cream Apply to left armpit BID until clear 15 g 0 predniSONE 10 MG (21) tablet therapy pack Take 10 mg by mouth 1 (one) time each day at the same time tacrolimus (Protopic) 0.1 % ointment APPLY TO AFFECTED AREA TWICE DAILY WHEN FLARED thiamine (Vitamin B-1) 100 MG tablet Take 1 tablet (100 mg) by mouth in the morning. 90 tablet 3 tretinoin (Retin-A) 0.05 % cream Apply to face, once daily at evening/night time, 30 day supply 20 g 11 Triamcinolone Acetonide 0.025 % lotion 1 application. [] itraconazole (Sporanox) 100 MG capsule Take 1 capsule (100 mg) by mouth Daily for 5 days 5 capsule 0 No current facility-administered medications on file prior to visit. Objective Last Recorded Vitals Vitals: 04/10/24 1012 BP: 110/70 ENT Physical Exam Head and Face Palpation: TMJ tender on the right; Ear Hearing: intact; Auricles: right auricle normal; left auricle normal; External Mastoids: right external mastoid normal; left external mastoid normal; Ear Canals: right ear canal normal; left ear canal normal; Tympanic Membranes: right tympanic membrane normal; left tympanic membrane normal; Oral Cavity/Oropharynx OC/OP comments: OC/OP/IDL (good exam) - no erythema, edema, mass, or ulcer Neck Neck: neck normal; neck palpation normal; Thyroid: thyroid normal; Assessment/Plan Diagnoses and all orders for this visit: LPRD (laryngopharyngeal reflux disease) Acute otalgia, right No sign of infection or neoplasm. If had thrush it is responding well to tx. I suspect residual sx related to pt's LPRD. I will restart meds for a few months. Otalgia likely referred from the TMJ documented in this encounter [facility] 04-10-2024 Telephone encounter Note Patient calls stating [...] Triage was involved? Please advise. Sherrie Cortes [facility] 04-07-2024 Note [facility] 04-07-2024 History of Present illness Narrative Patient's name appears on the [facility] First Time Treatment List for a non-oncology treatment. No psychosocial assessment is indicated. BILL Rosenberg Goals of Care Advance Directives are not on file SIGNATURE: JUSTICE Rosenberg PATIENT NAME: Ariadna Haley DATE: April 07, 2024 TIME: 9:31 AM PAGER/CONTACT #: documented in this encounter [facility] 04-06-2024 Evaluation + Plan note Associated Problem(s): 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 We will get lower extremity PVR with cold immersion test. I counseled her on the diagnosis and identifying and avoiding provoking factors. I also counseled her that managing her SLE and autoimmune connective tissue disorders is balderrama for managing her Raynaud's. All her questions were answered. [facility] 04-06-2024 Miscellaneous Notes Associated Problem(s): 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 We will get lower extremity PVR with cold immersion test. I counseled her on the diagnosis and identifying and avoiding provoking factors. I also counseled her that managing her SLE and autoimmune connective tissue disorders is balderrama for managing her Raynaud's. All her questions were answered. documented in this encounter [facility] 04-06-2024 History of Present illness Narrative Images from the original note were not included. To: No primary care provider on file. HPI: Ariadna Haley is a 43 y.o. female with [...] Interpersonal Safety: Unknown (07/15/2023) Received from [facility] Fear of Current [...] Assessment and Plan: Problem List Rheumatoid arthritis ([facility]) Relevant Medications ibuprofen (ADVIL,MOTRIN) 200 mg tablet predniSONE (STERAPRED DS) 10 mg tablet pack Systemic lupus erythematosus (CMS-HCC) - Primary Relevant Medications ibuprofen (ADVIL,MOTRIN) 200 [...] her Raynaud's. All her questions were answered. Ariadna was seen today for poss raynauds. Diagnoses and all orders for this visit: Systemic lupus erythematosus ([facility]) - Vas art doppler lwr bilat mult lev/PVR; Future Cold extremities - [facility] [place], [place] - Vas art doppler lwr bilat mult lev/PVR; Future Pain of lower extremity, unspecified laterality - [facility] [place] [place] - Vas art doppler lwr bilat mult lev/PVR; Future Rheumatoid arthritis, involving unspecified site, unspecified whether rheumatoid factor present ([facility]) Current smoker 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 Judy Arciniega MD, ZIA, RPVI, FSVS, FACS [facility] This note was created with the assistance of a speech recognition program. While intending to generate a timely document that accurately reflects the content of the visit, no guarantee can be provided that every grammatical or spelling mistake has been or will be identified or corrected. Thank you for your understanding. documented in this encounter [facility] 04-06-2024 Instructions Judy Arciniega MD - 04/06/2024 9:40 AM EST Are You Ready To Kick The Habit? Free Tobacco Cessation Resources [facility] Services [facility] provide all employees with free tobacco cessation services that include: Counseling to understand nicotine addiction Education about medications that can help you successfully quit Assistance with developing a plan to quit Call to set up an individual appointment or find out when group classes will be held: [facility]: [phone] [facility]: [phone] [facility]: [phone] [facility]: [phone] Quit Smoking Action Plan and Resources [facility] offers an eight-week, online smoking cessation plan to all [facility] employees, regardless of whether [place] is your medical insurance provider. Go to www.[employer]ica.org/employeewellnes s and click the Health Risk Assessment and Resources link to get started. In the Wkvaz4Ksfbpj menu, click Action Plans instead of Health Risk Assessment to access the Quit Smoking Action Plan. Additional smoking cessation resources are also available to all [facility] employees on the [employer]yp[employer] web page at www.[employer]/quitefrem [place] Tobacco Cessation Program If [employer] is your medical insurance provider, there are more free resources available to you, including: No copays or deductibles on local tobacco cessation counseling services to help you quit Prescription assistance for tobacco cessation medications to help you quit For details about the tobacco cessation program available to [place] members, go to www.[employer]oojoom (Search: Tobacco Cessation Program). [place] Tobacco Quit Line 9-110-VMWB-NOW ( ) is a toll-free, telephonic service that helps [place] residents quit smoking and using tobacco. It is staffed by experts who tailor a quit plan for you and provide you with advice. [place] Tobacco Quit Line 9-981-GDVV-NOW ( ) is a toll-free, telephonic service [...] and resources to help you quit tobacco: [employer]--www.cancer.org/healthy/sta yawayfromtobacco [place] [employer]--www.heart.org (Search: Quit Smoking) Centers for Disease Control and Prevention--www.cdc.gov/tobacco [place] [employer]--www.lungusa.org documented in this encounter [facility] [employer] 04-03-2024 Telephone encounter Note Changed terbinafine to itraconazole at pt request. [facility] 04-03-2024 Miscellaneous Notes Changed terbinafine to itraconazole at pt request. documented in this encounter [facility] 04-02-2024 Telephone encounter Note Please Call patient [...] above. Please process accordingly. Lynne Ni MD [facility] 04-02-2024 Miscellaneous Notes Please Call patient [...] Lynne Ni MD documented in this encounter [facility] 04-02-2024 History of Present illness Narrative HPI: Historian of HPI: patient Ariadna Haley is a 43 y.o. female who [...] mg) by mouth Daily for 5 days Atyoselin has been on nystatin several times in [...] her immunosuppressive therapy. documented in this encounter [facility] 04-01-2024 Instructions Vera Najera MD - 04/01/2024 4:28 PM EST Obtain body fluid culture from [facility]. B12 shot today and every 4 weeks. Continue Folic acid. Frequent infections plan IVIG for hypogammaglobulinemia Start when approved. RTC 3 months repeat labs same day. IVIG same day. documented in this encounter [facility] 03-31-2024 Note [facility] 03-31-2024 History of Present illness Narrative CMN RECEIVED BY [employer] VIA FAX, COMPLETED, AND PLACED IN PROVIDER MAILBOX FOR SIGNATURE Ahsly Castillo [employer] 03/31/2024 Drivr SENDING CMN: JOSH SIGNED AND DATED CMN, FAXED TO DME & CONFIRMATION PAGE RECEIVED: 04/11/2024 documented in this encounter [facility] 03-30-2024 Telephone encounter Note Pt is scheduled and instructions were sent thru my chart. [facility] 03-30-2024 Miscellaneous Notes Pt is scheduled and instructions were sent thru my chart. Im for pt- saved time on 04/18 7:45 Also sent mychart msg. dm Images from the original note were not included. documented in this encounter [facility] 03-29-2024 Telephone encounter Note Im for pt- saved time on 04/18 7:45 Also sent mychart msg. dm [facility] 03-27-2024 Note [facility] 03-27-2024 History of Present illness Narrative Images from the original note were not included. NAME: Ariadna Haley [facility] NO.: [id number] DATE OF SERVICE: March 27, 2024 (Dania) Some elements in this clinic note that are critical to medical decision making have been carefully reviewed and included from a prior clinic note dated: December 27, 2023 (Liz) Referring Provider: Dr. Manuel Ferris Additional Clinicians involved in Ariadna De Pazlazarofrancisco javier's care: VIRTUAL VISIT PROGRESS NOTE This is a virtual visit using [employer] Video Call. It required patient-provider interaction for the medical decision making as documented below. I have communicated my name and active licensure. The patient's identity and physical location were verified at the time of this visit. Either the patient or their legal insurance claims representative has been informed of the risks [...] noted. PLAN: Obtain body fluid culture from [facility]. B12 shot today and every 4 weeks. [...] long time. Updated Visit, June 10, 2023: Ariadna returns today. She reports of extreme muscle [...] to anxiety. Updated Visit, April 20, 2023: Ariadna Haley returns for scheduled follow-up and monthly [...] lower lip done 2 days ago at [facility] - awaiting results. B12 helps especially [...] stable there. Updated Visit, August 27, 2022: Ariadna Haley returns for follow-up and B12 injection. She has missed a few B12 injections. She follows with multiple doctors including and inking machine tender, calculating machine operator, board hammer operator and PCP. She has been told they [...] but decreasing. Initial Visit, March 04, 2022: Ariadna Haley presents today Hematology and Oncology evaluation. [...] patient/family/caregiver, and care coordination (not separately reported). Vera Najera MD, CPE Hematology and Oncology Services Provided at: [place], [place] CC: Manuel Ferris MD [id number] [id number] documented in this encounter [facility] 03-23-2024 History of Present illness Narrative Reason for Appointment: Patient ID: Ariadna Haley is a 43 y.o. female who [...] Ambulatory Problems Diagnosis Date Noted Autoimmune disease ([facility]) 06/01/2023 Fibromyalgia 06/01/2023 Autonomic dysfunction 06/01/2023 Dizziness [...] Tobacco use disorder 07/06/2023 Cytomegalovirus infection (HCC) ([facility]) 07/06/2023 Depression, recurrent ([facility]) 06/09/2023 Discoid lupus erythematosus ([facility]) 02/14/2022 Disturbance of skin sensation 07/06/2023 Elevated sed rate 03/05/2021 High total serum IgM 03/05/2021 Enthesopathy of hip region 07/06/2023 Essential hypertension ([facility]) 06/09/2023 Excessive and frequent menstruation with irregular cycle 09/24/2022 Family history of Crohn's disease 03/05/2021 Hair loss 03/05/2021 Hyperlipidemia (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) 09/07/2022 Obstructive sleep apnea syndrome 05/20/2022 Oral lesion 07/06/2023 Pain, hip 07/06/2023 Rash and nonspecific skin eruption 03/05/2021 Steroid-induced osteoporosis ([facility]) 02/04/2023 Somnolence, daytime 05/20/2022 Secondary osteoarthritis of multiple sites 03/05/2021 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 02/04/2023 Swelling of lymph nodes 03/05/2021 Vitamin D deficiency 03/06/2021 Vitamin B12 deficiency 05/31/2014 Pure hypercholesterolemia, unspecified ([facility]) 08/10/2023 Hoarse 08/10/2023 Thyroid nodule ([facility]) 08/10/2023 Shortness of breath 07/13/2023 Paroxysmal supraventricular tachycardia ([facility]) 07/13/2023 PAC (premature atrial contraction) 07/13/2023 Degenerative disc disease, lumbar 11/08/2023 Paresthesias 11/08/2023 Nipple discharge 11/15/2023 Irregular periods/menstrual cycles 11/15/2023 Facet arthritis of lumbar region 12/15/2023 Resolved Ambulatory Problems Diagnosis Date Noted No Resolved Ambulatory Problems Past Medical History: Diagnosis Date Cervical lymphadenopathy COVID-19 vaccine administered Difficulty walking Fatigue Fibromyalgia, primary GERD (gastroesophageal reflux disease) History of removal of cyst 2012 HTN (hypertension) ([facility]) Hx of abnormal cervical Pap smear Insulin resistance Laryngopharyngeal reflux disease Lupus Numbness Oral thrush Prediabetes Sleep apnea Weakness of limb HISTORY PAST MEDICAL HISTORY SOCIAL HISTORY Past Medical History: Diagnosis Date Anxiety Cervical lymphadenopathy Chronic laryngopharyngitis COVID-19 vaccine administered x 2 ([employer]) Difficulty walking Fatigue Fibromyalgia, primary GERD (gastroesophageal reflux disease) History of removal of cyst 2012 tailbone x2 HTN (hypertension) ([facility]) Hx of abnormal cervical Pap smear Hyperlipidemia ([facility]) Insulin resistance Laryngopharyngeal reflux disease Lupus Numbness [...] to lupus. Will discuss further if lo lo does not help Documented by Hazel Torres MA on behalf of: KELVIN Cabrera documented in this encounter [facility] 03-23-2024 Nurse Note Patient Identification confirmed: yes. Injection given and documented on MAR per provider order. Stacy Gutiérrez MA [facility] 03-23-2024 Nurse Note Patient Identification confirmed: yes. Injection given and documented on MAR per provider order. Stacy Gutiérrez MA documented in this encounter [facility] 03-20-2024 Telephone encounter Note Images from the original note were not included. [facility] 03-18-2024 History of Present illness Narrative [...] visit. 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 Labs sent to [facility]/completed in 06/2021 (no results faxed to office, [...] dexamethasone Reports pain 2-11/30 No falls/fx/trauma/illness/oral sores/rash/hairloss/jaw pain/dysphagia/epistaxis/hemoptysis . No adverse [...] pain: yes H/o precedent/frequent infection(s): as above Enthesopathy/[place]'s/heel/plantar tenderness: hands random painful/tingling Skin thickening, psoriasis, [...] COVID-19 original vaccine, age 12+ yr, monovalent ([facility] - PURPLE TOP) 09/28/2020 10/19/2020 05/26/2021 COVID-19 vaccine, age 12+ yr ([facility] COMIRNATY) 02/23/2023 COVID-19 vaccine, age 12+ yr, bivalent ([facility]) 02/08/2022 Pneumovax no Flu shot no Tetanus [...] (33);NL cbc, cmp, negative hla b27; Outside [place] 06/2021 low vitamin D 16, vitamin b12-307;high [...] pain LIMITATION of Motion of Joints: yes IMPRESSION/DIAGNOSIS:03/18/24 M32.19 Other systemic lupus erythematosus with other organ involvement (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 I have enclosed a copy of [...] Workers' Compensation? No Do you need an stunt double? 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 documented in this encounter [facility] 03-17-2024 Telephone encounter Note Notify patient medication sent as requested Thank you. Patient's request for medication is as follows: Requested Prescriptions Pending Prescriptions Disp Refills predniSONE (DELTASONE) 10 mg tablet [Pharmacy Med Name: PREDNISONE 10 MG TABLET] 30 tablet 5 Sig: TAKE 1 TABLET BY MOUTH EVERY DAY WITH FOOD NO ORAL NSAIDS Prescription(s) as above. Please process accordingly. Lynne Ni MD [facility] 03-17-2024 Miscellaneous Notes Notify patient medication [...] Department VIDEO SPEC EST 03/18/2024 9:00 AM [facility] Last Ophthalmology Check for Plaquenil (Hydroxychloroquine) [...] Ordered Last Rel. CBC + DIFF [SQCBCDIF] 1 Every 3 months 06/02/24 06/03/23 02/21/24 Auth. provider: Vera Najera MD Assoc. diagnoses: Megaloblastic anemia due to vitamin B12 deficiency, Elevated sed rate COMP METABOLIC PANEL [SQCMP] 1/5 Every 3 months 06/02/24 06/03/23 02/21/24 Auth. provider: Vera Najera MD Assoc. diagnoses: Megaloblastic anemia due to vitamin B12 deficiency, Elevated sed rate IRON + TIBC [SQIRON] 1/5 Every 3 months 06/02/24 06/03/23 02/21/24 Auth. provider: Vera Najera MD Assoc. diagnoses: Megaloblastic anemia due to vitamin B12 deficiency, Elevated sed rate FERRITIN BLD [SQFERR] 1/5 Every 3 months 0106/03/23 02/21/24 Auth. provider: Vera Najera MD Assoc. diagnoses: Megaloblastic anemia due to vitamin B12 deficiency, Elevated sed rate VITAMIN B12 BLOOD [SQB12] 05/28 Every 3 months 06/02/24 06/03/23 02/21/24 Auth. provider: Vera Najera MD Assoc. diagnoses: Megaloblastic anemia due to vitamin B12 deficiency, Elevated sed rate FOLATE SERUM [SQSERFOL] 05/28 Every 3 months 06/02/24 06/03/23 02/21/24 Auth. provider: Vera Najera MD Assoc. diagnoses: Megaloblastic anemia due to vitamin B12 deficiency, Elevated sed rate SED RATE WESTERGREN [SQWSR] 05/27 Every 3 months 06/09/24 06/10/23 02/21/24 Auth. provider: Vera Najera MD Assoc. diagnoses: Elevated sed rate Open Future (Single Instance) Lab Orders Expected Expires Ordered COMPREHENSIVE METABOLIC PANEL [SQCMP] 03/20/24 06/19/24 12/27/23 Auth. provider: Juli Narayanan PA-C Assoc. diagnoses: Megaloblastic anemia due to vitamin B12 deficiency, Elevated sed rate, Obstructive sleep apnea syndrome IRON AND TIBC [SQIRON] 03/20/24 06/19/24 12/27/23 Auth. provider: Juli Narayanan PA-C Assoc. diagnoses: Megaloblastic anemia due to vitamin B12 deficiency, Elevated sed rate, Obstructive sleep apnea syndrome COMPLETE BLOOD COUNT AND DIFFERENTIAL [SQCBCDIF] 03/20/24 06/19/24 12/27/23 Auth. provider: Juli Narayanan PA-C Assoc. diagnoses: Megaloblastic anemia due to vitamin B12 deficiency, Elevated sed rate, Obstructive sleep apnea syndrome FERRITIN [SQFERR] 03/20/24 06/19/24 12/27/23 Auth. provider: Juli Narayanan PA-C Assoc. diagnoses: Megaloblastic anemia due to vitamin B12 deficiency, Elevated sed rate, Obstructive sleep apnea syndrome IMMUNOGLOBULINS,IGG,IGA,IGM [SQSERIMM] 03/20/24 06/19/24 12/27/23 Auth. provider: Juli Narayanan PA-C Assoc. diagnoses: Megaloblastic anemia due to vitamin B12 deficiency, Elevated sed rate, Obstructive sleep apnea syndrome FOLATE, SERUM [SQSERFOL] 03/20/24 06/19/24 12/27/23 Auth. provider: Juli Narayanan PA-C Assoc. diagnoses: Megaloblastic anemia due to vitamin B12 deficiency, Elevated sed rate, Obstructive sleep apnea syndrome VITAMIN B12 [SQB12] 03/20/24 06/19/24 12/27/23 Auth. provider: Juli Narayanan PA-C Assoc. diagnoses: Megaloblastic anemia due [...] diagnoses: Pseudomonas infection documented in this encounter [facility] 03-17-2024 Telephone encounter Note Images from [...] with other organ involvement (HCC) Rheumatology Lynne iN MD Upcoming Rheumatology Appointments - Next 365 Days Visit Type Date Time Department VIDEO SPEC EST 03/18/[facility]24 9[facility] [facility] Last Ophthalmology Check for Plaquenil (Hydroxychloroquine) [...] 3 months 06/02/24 06/03/23 02/21/24 Auth. provider: Vera Najera MD Assoc. diagnoses: Megaloblastic anemia due to vitamin B12 deficiency, Elevated sed rate COMP METABOLIC PANEL [SQCMP] 1/5 Every 3 months 06/02/24 06/03/23 02/21/24 Auth. provider: Vera Najera MD Assoc. diagnoses: Megaloblastic anemia due to vitamin B12 deficiency, Elevated sed rate IRON + TIBC [SQIRON] 1/5 Every 3 months 06/02/24 06/03/23 02/21/24 Auth. provider: Vera Najera MD Assoc. diagnoses: Megaloblastic anemia due to vitamin B12 deficiency, Elevated sed rate FERRITIN BLD [SQFERR] 1/5 Every 3 months 06/02/24 06/03/23 02/21/24 Auth. provider: Vera Najera MD Assoc. diagnoses: Megaloblastic anemia due to vitamin B12 deficiency, Elevated sed rate VITAMIN B12 BLOOD [SQB12] 1/5 Every 3 months 06/02/24 06/03/23 02/21/24 Auth. provider: Vera Najera MD Assoc. diagnoses: Megaloblastic anemia due to vitamin B12 deficiency, Elevated sed rate FOLATE SERUM [SQSERFOL] 1/5 Every 3 months 06/02/24 06/03/23 02/21/24 Auth. provider: Vera Najera MD Assoc. diagnoses: Megaloblastic anemia due to vitamin B12 deficiency, Elevated sed rate SED RATE WESTERGREN [SQWSR] 1/4 Every 3 months 06/09/24 06/10/23 02/21/24 Auth. provider: Vera Najera MD Assoc. diagnoses: Elevated sed rate Open Future (Single Instance) Lab Orders Expected Expires Ordered COMPREHENSIVE METABOLIC PANEL [SQCMP] 03/20/24 06/19/24 12/27/23 Auth. provider: Juli Narayanan PA-C Assoc. diagnoses: Megaloblastic anemia due to vitamin B12 deficiency, Elevated sed rate, Obstructive sleep apnea syndrome IRON AND TIBC [SQIRON] 03/20/24 06/19/24 12/27/23 Auth. provider: Juli Narayanan PA-C Assoc. diagnoses: Megaloblastic anemia due to vitamin B12 deficiency, Elevated sed rate, Obstructive sleep apnea syndrome COMPLETE BLOOD COUNT AND DIFFERENTIAL [SQCBCDIF] 03/20/24 06/19/24 12/27/23 Auth. provider: Juli Narayanan PA-C Assoc. diagnoses: Megaloblastic anemia due to vitamin B12 deficiency, Elevated sed rate, Obstructive sleep apnea syndrome FERRITIN [SQFERR] 03/20/24 06/19/24 12/27/23 Auth. provider: Juli Narayanan PA-C Assoc. diagnoses: Megaloblastic anemia due to vitamin B12 deficiency, Elevated sed rate, Obstructive sleep apnea syndrome IMMUNOGLOBULINS,IGG,IGA,IGM [SQSERIMM] 03/20/24 06/19/24 12/27/23 Auth. provider: Juli Narayanan PA-C Assoc. diagnoses: Megaloblastic anemia due to vitamin B12 deficiency, Elevated sed rate, Obstructive sleep apnea syndrome FOLATE, SERUM [SQSERFOL] 03/20/24 06/19/24 12/27/23 Auth. provider: Juli Narayanan PA-C Assoc. diagnoses: Megaloblastic anemia due to vitamin B12 deficiency, Elevated sed rate, Obstructive sleep apnea syndrome VITAMIN B12 [SQB12] 03/20/24 06/19/24 12/27/23 Auth. provider: Juli Narayanan PA-C Assoc. diagnoses: Megaloblastic anemia due [...] Alhaji Head DO Assoc. diagnoses: Pseudomonas infection [facility] 03-16-2024 History of Present illness Narrative Reason for Appointment: Patient ID: Ariadna Haley is a 43 y.o. female who [...] Ambulatory Problems Diagnosis Date Noted Autoimmune disease ([facility]) 06/01/2023 Fibromyalgia 06/01/2023 Autonomic dysfunction 06/01/2023 Dizziness [...] Tobacco use disorder 07/06/2023 Cytomegalovirus infection (HCC) ([facility]) 07/06/2023 Depression, recurrent ([facility]) 06/09/2023 Discoid lupus erythematosus ([facility]) 02/14/2022 Disturbance of skin sensation 07/06/2023 Elevated sed rate 03/05/2021 High total serum IgM 03/05/2021 Enthesopathy of hip region 07/06/2023 Essential hypertension ([facility]) 06/09/2023 Excessive and frequent menstruation with irregular cycle 09/24/2022 Family history of Crohn's disease 03/05/2021 Hair loss 03/05/2021 Hyperlipidemia ([facility]) 05/31/2014 USP 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 02/04/2023 Long-term use of high-risk medication 06/15/2022 Long-term use of Plaquenil 03/05/2021 LPRD (laryngopharyngeal reflux disease) 07/06/2023 Megaloblastic anemia due to vitamin B12 deficiency 03/04/2022 Myalgia 07/06/2023 Obesity, Class III, BMI 40-49.9 (morbid obesity) ([facility]) 09/07/2022 Obstructive sleep apnea syndrome 05/20/2022 Oral lesion 07/06/2023 Pain, hip 07/06/2023 Rash and nonspecific skin eruption 03/05/2021 Steroid-induced osteoporosis ([facility]) 02/04/2023 Somnolence, daytime 05/20/2022 Secondary osteoarthritis of multiple sites 03/05/2021 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 02/04/2023 Swelling of lymph nodes 03/05/2021 Vitamin D deficiency 03/06/2021 Vitamin B12 deficiency 05/31/2014 Pure hypercholesterolemia, unspecified ([facility]) 08/10/2023 Hoarse 08/10/2023 Thyroid nodule ([facility]) 08/10/2023 Shortness of breath 07/13/2023 Paroxysmal supraventricular tachycardia ([facility]) 07/13/2023 PAC (premature atrial contraction) 07/13/2023 Degenerative disc disease, lumbar 11/08/2023 Paresthesias 11/08/2023 Nipple discharge 11/15/2023 Irregular periods/menstrual cycles 11/15/2023 Facet arthritis of lumbar region 12/15/2023 Resolved Ambulatory Problems Diagnosis Date Noted No Resolved Ambulatory Problems Past Medical History: Diagnosis Date Cervical lymphadenopathy COVID-19 vaccine administered Difficulty walking Fatigue Fibromyalgia, primary GERD (gastroesophageal reflux disease) History of removal of cyst 2012 HTN (hypertension) ([facility]) Hx of abnormal cervical Pap smear Insulin resistance Laryngopharyngeal reflux disease Lupus Numbness Oral thrush Prediabetes Sleep apnea Weakness of limb HISTORY PAST MEDICAL HISTORY SOCIAL HISTORY Past Medical History: Diagnosis Date Anxiety Cervical lymphadenopathy Chronic laryngopharyngitis COVID-19 vaccine administered x 2 ([employer]) Difficulty walking Fatigue Fibromyalgia, primary GERD (gastroesophageal reflux disease) History of removal of cyst 2012 tailbone x2 HTN (hypertension) ([facility]) Hx of abnormal cervical Pap smear Hyperlipidemia ([facility]) Insulin resistance Laryngopharyngeal reflux disease Lupus Numbness [...] nursing note reviewed. Exam conducted with a lcsw present. Vitals: Estimated body mass index is [...] Disease with Dr. Kelsey and Specialist at [facility]. Patient voiced that Dr. Kelsey recommended surgery, but patient feels that maybe excessive. Specialist at [facility] suggested monitoring. Patient has had mammogram. Patient does not put anything on her breast. Ruled out [facility] Breast concerns. Discussed [place] Oil at night and Vitamin E lotion. Patient voiced that her breast feel brambila and heavier. Discussed growth of breast and proper support. Breast are not hot nor warm to the touch. Patient to obtain bilateral breast ultrasound. Patient to follow up with routine annual appointment and as needed. Documented by Alicia Christine LPN on behalf of: Luna Valdivia DO documented in this encounter [facility] 03-13-2024 Note [facility] 03-08-2024 Note [facility] Cardiology Clinic Note Chief Complaint: New patient here to establish care. Ref from [facility] Enciso C[facility] hypertension[facility] Had [facility] few weeks ago at [facility]. Says her BP is very low while supine and then goes high when she stands. C/o chest pain but she attributes this to GI issues. Smokes 1/2-1 PPD. C/o ANNE. Gets lightheaded at times but denies syncope. HPI: Ariadna Haley is a 43 y.o. female With [...] past several months. She has seen 2-3 documentum consultant in the past. She has undergone a [...] on any stimulants including caffeinated beverages, alcohol, [id number] Sudafed etc. If her symptoms of palpitations persist, particular if she has lightheadedness or dizziness, head upright tilt table test may be reasonable to evaluate for possible dysautonomia's I discussed the side effects and risks of long-term steroid therapy and recommended she discuss with her calculating machine operator weaning off soon as possible Given her morbid obesity, her current symptoms and comorbidities are likely related to excessive weight: I encouraged physical activity, attempts to lose weigh (more content not included)... [facility] 03-07-2024 Note [facility] 03-07-2024 History of Present illness Narrative CMN RECEIVED BY [employer] VIA FAX, COMPLETED, AND PLACED IN PROVIDER MAILBOX FOR SIGNATURE Lee Friedman Coordinator III 03.07.2024 [employer] SENDING CMN: Josh SIGNED AND DATED CMN, FAXED TO DME & CONFIRMATION PAGE RECEIVED: 03.07.2024 documented in this encounter [facility] 02-22-2024 Telephone encounter Note Received a [...] terrified to drive that far to [facility] [place].' Further reviewed the reasoning behind the visit needing to be in-person and stated that I would have our pmo analyst reach out if she is willing to accept an in-person appt. PT requested that I review with our clinical team if this can be a VV before she schedules. I let her know I will do so and be in touch. She had no further questions at this time. Luda Vargas Genetic Counseling Metal Machine Setter Additional: see FYIs for documentation of scheduling and cancellation with genetics in 2021 [facility] 02-22-2024 Miscellaneous Notes Received a call [...] terrified to drive that far to [place].' Further reviewed the reasoning behind the visit needing to be in-person and stated that I would have our pmo analyst reach out if she is willing to accept an in-person appt. PT requested that I review with our clinical team if this can be a VV before she schedules. I let her know I will do so and be in touch. She had no further questions at this time. Luda Vargas Genetic Counseling Metal Machine Setter Additional: see FYIs for documentation of scheduling and cancellation with genetics in 2021 documented in this encounter [facility] 02-21-2024 Nurse Note Patient Identification confirmed: yes. Injection given and documented on MAR per provider order. Kenzie Shannon MA [facility] 02-21-2024 Nurse Note Patient Identification confirmed: yes. Injection given and documented on MAR per provider order. Kenzie Shannon MA documented in this encounter [facility] 02-18-2024 Telephone encounter Note Patient is calling the [place] office requesting Dr. Ni to place a referral to genetics. Please advise. [facility] 02-18-2024 Miscellaneous Notes Patient is calling the [place] office requesting Dr. Ni to place a referral to genetics. Please advise. documented in this encounter [facility] 02-15-2024 Telephone encounter Note [facility], OFFICE NOTES WITH CONFIRMATON NOTED. [facility] 02-15-2024 Miscellaneous Notes [facility], OFFICE NOTES WITH CONFIRMATON NOTED. documented in this encounter [facility] 02-14-2024 History of Present illness Narrative [...] been reviewed prior to dispensing the medication. Lump Maker Assessment Patient confirmed: Yes Med/dose confirmed: Yes Missed doses: No Estimated days supply on hand: 1 Next cycle/dose due: 02/17/24 Copay amount: 0 Payment confirmed: Yes Delivery method: FedEx Signature required: Waived on patient request Delivery address: [address] [place] [address]. [place], [place] Delivery date: 02/17/24 Questions or concerns [...] facility-administered medications on file prior to visit. [facility] [place] [facility] CLINICAL ASSESSMENT - INFLAMMATORY CONDITIONS [...] efficacy and/or no longer tolerated. Luda Conde [facility] [phone] documented in this encounter [facility] 02-14-2024 Note [facility] 02-14-2024 History of Present illness Narrative Benefits investigation was conducted, indicating that a re-authorization is required for [employer]. PA was initiated and pending review. Plan Name: Keesha [employer]eds Balderrama: [id number] Luda Conde CPhT [facility] [phone] documented in this encounter [facility] 02-14-2024 Note [facility] 02-14-2024 Note [facility] 02-14-2024 Instructions Lexus Heck APRN.HYPERION ESSBASE DEVELOPER - 02/14/2024 8:03 AM EDT Images from the original note were not included. Your most recent body mass index (BMI) that we have on record is 43.08 kg/m2. Obstructive sleep apnea (JOSE RAFAEL) worsens with an increase in weight; reduction in weight may improve or resolve your JOSE RAFAEL. If you are not already seeking treatment, there are resources available at the [facility] such as a nutrition consultation or referral to weight management programs at our [facility] [place]. Please let us know if we can [...] and out of pocket expenses. DME: Josh [phone] - Remember to clean your mask and equipment regularly, as directed. - Avoid use of ozone diagnostic technologist, SoClean devices, or UV cleaning devices - [...] the central scheduling system for the [facility] [place] at [phone]. [facility] now offers direct scheduling for patients to schedule appointments. Virtual visits are also available. Call the office at [phone], option #5 for questions. documented in this encounter [facility] 02-14-2024 History of Present illness Narrative Images from the original note were not included. [facility] Virtual Visit Follow up/ Established patient visit Date of last visit : 07/27/2022 I have communicated my name and active licensure. The patient's identity and physical location were verified at the time of this visit. Either the patient or their legal insurance claims representative has been informed of the risks [...] Return Visit in 6 months. Lexus Heck APRN.HYPERION ESSBASE DEVELOPER Interval history : Here for follow up for sleep apnea management. SLEEP APNEA Sleep apnea type : JOSE RAFAEL Most Recent Apnea-Hypopnea Index (AHI): 5.3 (HSAT scored 4 %) Treatment : PAP therapy DME: Josh [place] fax: [phone] [facility] ph: [phone] PAP History: Current PAP settin-15 cm H2O. [...] are sorted in reverse-chronological order 04/12/2022 07/23/2022 [place] Sleepiness Scale Score 4 (No clinically significant [...] per week). - Follow up 12 months. Lexus Heck APRN.TRUE documented in this encounter [facility] 02-14-2024 Note [facility] 02-09-2024 History of Present illness Narrative Images from the original note were not included. CHIEF COMPLAINT REASON FOR VISIT : leg pain HPI: Ariadna Haley is a 43 y.o. female who presents for distant health audiovisit. She is at home. She consents to visit. She was started norvasc by another provider but did not take it. She is having pain in arms and legs but not color changes to toes or hands. She has tried years of provider directed treatment including PT, home exercises, ice, heat, OTC medications including but not limited to tylenol, icey hot, ibuprofen. She has completed chiropractor treatments, used TENS unit, ice and heat. She has tried muscle relaxers and neuropathic medications. She is on Lyrica, voltaren, daily steroids for autoimmune disease and has tried robaxin. CURRENT MEDICATIONS: ALLERGIES/DISCONTINUE MEDICATIONS Current Outpatient Medications Medication Instructions acetaminophen (Tylenol) 325 MG tablet Every 4 hours ALPRAZolam (Xanax) 0.25 MG tablet TAKE 1 TABLET BY MOUTH EVERY DAY NEEDED FOR 30 DAYS amLODIPine (NORVASC) 5 mg, Oral, Daily aspirin 81 mg, Oral, Daily azaTHIOprine (IMURAN) 150 mg, Oral, Daily belimumab (BENLYSTA) 200 mg, Subcutaneous, Weekly chlorhexidine (Hibiclens) 4 % external liquid Lather onto affected areas on the body and rinse from the neck down, 2 times a week avoiding the face, 30 day supply clindamycin (Clindagel) 1 % gel APPLY TO AFFECTED AREA DAILY Clobetasol Propionate 0.05 % shampoo 1 application to the scalp in the shower topically 3-4 times a week dexAMETHasone (Decadron) 2 MG tablet 2mg 3 pills po X3 days,2 pills po daily X3 days , then 1 pill po daily X3 days then stop 9 days 18 pills diclofenac sodium 1 % gel APPLY DIRECTED TO AFFECTED AREA NEEDED dicyclomine (BENTYL) 10 mg, Oral, 3 times daily DULoxetine (CYMBALTA) 20 mg, Oral, Daily ergocalciferol (VITAMIN D2) 50,000 Units, Oral, Weekly fluocinonide (Lidex) 0.05 % external solution Apply to affected areas on the scalp, up to twice a day when flared, 30 day supply fluticasone (Flonase) 50 MCG/ACT nasal spray 2 sprays, Each Nostril, 2 times daily, Shake gently. Before first use, prime pump. After use, clean tip and replace cap. folic acid (FOLVITE) 1 mg, Oral, Daily RT Hibiclens 4 % solution LATHER ONTO AFFECTED AREAS ON THE BODY AND RINSE FROM THE NECK DOWN,2 TIMES A WEEK AVOIDING THE FACE hydroxychloroquine (Plaquenil) 400 MG tablet Every 24 hours hydroxychloroquine (PLAQUENIL) 200 mg, Oral, 2 times daily ibuprofen 200 MG tablet Every 8 hours metoprolol tartrate (LOPRESSOR) 100 mg, Oral, 2 times daily nystatin (Mycostatin) cream Apply to left armpit BID until clear pantoprazole (PROTONIX) 40 mg, Oral, Daily phentermine (ADIPEX-P) 37.5 mg, Oral, Daily before breakfast pravastatin (PRAVACHOL) 20 mg, Oral, Daily predniSONE 10 mg, Oral, Every 24 hours pregabalin (LYRICA) 100 mg, Oral, 3 times daily tacrolimus (Protopic) 0.1 % ointment APPLY TO AFFECTED AREA TWICE DAILY WHEN FLARED thiamine (VITAMIN B-1) 100 mg, Oral, Every morning tretinoin (Retin-A) 0.05 % cream Apply to face, once daily at evening/night time, 30 day supply Triamcinolone Acetonide 0.025 % lotion 1 application Xarelto 15 mg, Oral, Daily with evening meal Allergies Allergen Reactions Codeine Other Reaction(s): Other: [...] just thinks she just experienced side effects. There are no discontinued medications. PAST MEDICAL HISTORY: SURGICAL/SOCIAL/FAMILY HISTORY DEPRESSION SCREEN: Past Medical History: Diagnosis Date Anxiety Cervical lymphadenopathy Chronic laryngopharyngitis COVID-19 vaccine administered x 2 ([employer]) Difficulty walking Fatigue Fibromyalgia, primary GERD (gastroesophageal reflux disease) History of removal of cyst 2013 tailbone x2 HTN (hypertension) ([facility]) Hx of abnormal cervical Pap smear Hyperlipidemia ([facility]) Insulin resistance Laryngopharyngeal reflux disease Lupus ([facility]) Numbness Oral lesion Oral thrush Prediabetes Sleep apnea Tachycardia Weakness of limb Past Surgical History: Procedure Laterality Date CYST REMOVAL DILATION AND CURETTAGE LYMPH NODE BIOPSY 2020 OTHER SURGICAL HISTORY cervical cryo VAGINAL DELIVERY Social History Tobacco Use Smoking status: Every Day Current packs/day: 1.00 Average packs/day: 1 pack/day for 28.7 years (28.7 ttl pk-yrs) Types: Cigarettes Start date: 05/24/1995 Smokeless tobacco: Never Tobacco comments: Current smoker, everyday, 11-20 cigarettes/day Vaping Use Vaping status: Never Used Substance Use Topics Alcohol use: Never Comment: Caffeine intake : > 4 cups per day Drug use: Never Family History Problem Relation Name Age of Onset Crohn's disease Mother Nieves Thyroid disease Mother Nieves Stomach cancer Father Micheal Cancer Father Micheal No Known Problems Sister 1 No Known Problems Daughter Lung disease Son Other (lung issue) Child 1 son with lung issue, 3 daughters Diabetes Maternal Grandmother Clelagiovany Heart failure Maternal Grandmother Clesandhya Rheum arthritis Maternal Grandmother Lisandro Depression: Not at risk (12/27/2023) Received from [facility] PHQ-2 PHQ-2 score: 1 REVIEW OF SYMPTOMS: Review of Systems Constitutional: Positive for fatigue. Negative for chills and fever. HENT: Negative for tinnitus. Eyes: Negative for photophobia. Respiratory: Negative for shortness of breath. Cardiovascular: Negative for chest pain. Gastrointestinal: Negative for nausea and vomiting. Genitourinary: Negative for frequency. Musculoskeletal: Positive for arthralgias and back pain. Negative for gait problem and neck pain. Neurological: Positive for numbness. Negative for dizziness, tremors, weakness, light-headedness and headaches. Psychiatric/Behavioral: Negative. OBJECTIVE: 12/04/2023 1:28 PM 11/15/2023 9:14 AM 09/13/2023 9:00 AM Vitals BMI 43.67 kg/m2 43.95 kg/m2 BSA (m2) 2.44 m2 2.45 m2 Systolic 104 118 145 Diastolic 74 78 59 Heart Rate 59 72 SpO2 98 % Temp 97.6 F Weight (lb) 278.8 280.6 Visit Report Report Report Report EXAM: Neurological Exam Mental Status Awake, alert and oriented to person, place and time. Oriented to person, place and time. Speech is normal. Language is fluent with no aphasia. PROCEDURE: ASSESSMENT AND PLAN: Diagnoses and all orders for this visit: Lumbosacral radiculopathy at L5 - baclofen (Lioresal) 5 MG tablet; Take 1 tablet (5 mg) by mouth in the morning and 1 tablet (5 mg) in the evening and 1 tablet (5 mg) before bedtime. Degenerative disc disease, lumbar - baclofen (Lioresal) 5 MG tablet; Take 1 tablet (5 mg) by mouth in the morning and 1 tablet (5 mg) in the evening and 1 tablet (5 mg) before bedtime. Cervical radiculopathy at C5 - baclofen (Lioresal) 5 MG tablet; Take 1 tablet (5 mg) by mouth in the morning and 1 tablet (5 mg) in the evening and 1 tablet (5 mg) before bedtime. 43 year old female with arm pain and leg pain described as cold and numbness. Another provider started her on norvasc for potential Raynauds as she does have history of lupus and is cigarette smoker. Her blood pressure runs 100/50s and she was nervous to take medication. I do agree with this and usually Raynauds affects fingers and toes causing a drastic color change and pain with exposure to cold temperatures. She does have underlying bilateral C5 radiculopathy and also bilateral moderate L5 radiculopathy. Lumbar MRI with evidence of disc bulge L5/S1, with facet arthritis and foraminal narrowing moderate on left, milder on right. I will start baclofen and I want her to continue Dr. Kang's recommendation for medical branch blocks and possible RFA. This was discussed with patient, all questions answered. Total time 30 minutes spent reviewing records, performing medically appropriate exam, counseling , education, ordering medication, tests, and/or procedures, documenting health information into the health record, communicating results to the patient, and coordinating care. documented in this encounter [facility] 01-27-2024 Note HNO ID: [id number] Author: ALHAJI HEAD, DO Service: ? Author Type: Physician Type: Progress Notes Filed: 01/27/2024 16:54 Note Text: VIRTUAL VISIT PROGRESS NOTE This is a virtual visit using [employer] Video Visit. It required patient-provider interaction for the medical decision making as documented below. I have communicated my name and active licensure. The patient's identity and physical location were verified at the time of this visit. Either the patient or their legal insurance claims representative has been informed of the risks and benefits of -- and alternatives to -- treatment through a remote evaluation and consents to proceed with the evaluation remotely. Ariadna Haley is a 43 year old female seen for nipple discharge. She started having a scan amount of nipple discharge from bilateral nipples for about 1 year. She does not have spontaneous drainage but only nipple drainage when she squeezes the nipple. This produces only a very tiny amount of green drainage. She saw her OB/ lumber yard worker. This was thought to be secondary to [...] and NO DYSPHAG (more content not included)... [facility] 01-27-2024 History of Present illness Narrative Images from the original note were not included. VIRTUAL VISIT PROGRESS NOTE This is a virtual visit using [employer] Video Visit. It required patient-provider interaction for the medical decision making as documented below. I have communicated my name and active licensure. The patient's identity and physical location were verified at the time of this visit. Either the patient or their legal insurance claims representative has been informed of the risks and benefits of -- and alternatives to -- treatment through a remote evaluation and consents to proceed with the evaluation remotely. Ariadna Haley is a 43 year old female seen for nipple discharge. She started having a scan amount of nipple discharge from bilateral nipples for about 1 year. She does not have spontaneous drainage but only nipple drainage when she squeezes the nipple. This produces only a very tiny amount of green drainage. She saw her OB/ lumber yard worker. This was thought to be secondary to [...] CT chest 12/10: reported as ASSESSMENT/ PLAN: Ariadna Haley is a 43 year old female [...] Alhaji Head DO documented in this encounter [facility] 01-25-2024 Nurse Note Patient Identification confirmed: yes. Injection given and documented on JUL per provider order. Margret Cuenca MA [facility] 01-25-2024 Nurse Note Patient Identification confirmed: yes. Injection given and documented on MAR per provider order. Margret Cuenca MA documented in this encounter [facility] 01-18-2024 History of Present illness Narrative [...] outcomes. Aidee Quintanilla PharmD Clinical Pharmacist, [employer] [facility] ; Pool: P [facility] Pool #: [id number] Lump Maker Assessment Patient confirmed: Yes Med/dose confirmed: Yes Supplies needed: No supplies needed Missed doses: No Estimated days supply on hand: (At least 1 dose) Next cycle/dose due: 01/20/24 Copay amount: 0 Payment confirmed: Yes Delivery method: FedEx Signature required: Waived on patient request Delivery address: [address] [place] [address] Delivery date: 01/21/24 Questions or concerns for [...] facility-administered medications on file prior to visit. [facility] [place] [facility] CLINICAL ASSESSMENT - INFLAMMATORY CONDITIONS [...] no longer tolerated. Arianne Mckinley CPhT, Inflammatory/Allergy [facility] [phone] documented in this encounter [facility] 01-18-2024 Note [facility] 01-12-2024 Telephone encounter Note Pt has been notified via [employer]. [facility] 01-12-2024 Miscellaneous Notes Pt has been notified via [employer]. Please call patient. Thank you for the [...] 3 months 06/02/24 06/03/23 11/24/23 Auth. provider: Vera Najera MD Assoc. diagnoses: Megaloblastic anemia due to vitamin B12 deficiency, Elevated sed rate COMP METABOLIC PANEL [SQCMP] 2/5 Every 3 months 06/02/24 06/03/23 11/24/23 Auth. provider: Vera Najera MD Assoc. diagnoses: Megaloblastic anemia due to vitamin B12 deficiency, Elevated sed rate IRON + TIBC [SQIRON] 2/5 Every 3 months 06/02/24 06/03/23 11/24/23 Auth. provider: Vera Najera MD Assoc. diagnoses: Megaloblastic anemia due to vitamin B12 deficiency, Elevated sed rate FERRITIN BLD [SQFERR] 2/5 Every 3 months 06/02/24 06/03/23 11/24/23 Auth. provider: Vera Najera MD Assoc. diagnoses: Megaloblastic anemia due to vitamin B12 deficiency, Elevated sed rate VITAMIN B12 BLOOD [SQB12] 2/5 Every 3 months 06/02/24 06/03/23 11/24/23 Auth. provider: Vera Najera MD Assoc. diagnoses: Megaloblastic anemia due to vitamin B12 deficiency, Elevated sed rate FOLATE SERUM [SQSERFOL] 2/5 Every 3 months 06/02/24 06/03/23 11/24/23 Auth. provider: Vera Najera MD Assoc. diagnoses: Megaloblastic anemia due to vitamin B12 deficiency, Elevated sed rate SED RATE WESTERGREN [SQWSR] 2/4 Every 3 months 06/09/24 06/10/23 11/24/23 Auth. provider: Vera Najera MD Assoc. diagnoses: Elevated sed rate Open Future (Single Instance) Lab Orders Expected Expires Ordered COMPREHENSIVE METABOLIC PANEL [SQCMP] 03/20/24 06/19/24 12/27/23 Auth. provider: Juli Narayanan PA-C Assoc. diagnoses: Megaloblastic anemia due to vitamin B12 deficiency, Elevated sed rate, Obstructive sleep apnea syndrome IRON AND TIBC [SQIRON] 03/20/24 06/19/24 12/27/23 Auth. provider: Juli Narayanan PA-C Assoc. diagnoses: Megaloblastic anemia due to vitamin B12 deficiency, Elevated sed rate, Obstructive sleep apnea syndrome COMPLETE BLOOD COUNT AND DIFFERENTIAL [SQCBCDIF] 03/20/24 06/19/24 12/27/23 Auth. provider: Juli Narayanan PA-C Assoc. diagnoses: Megaloblastic anemia due to vitamin B12 deficiency, Elevated sed rate, Obstructive sleep apnea syndrome FERRITIN [SQFERR] 03/20/24 06/19/24 12/27/23 Auth. provider: Juli Narayanan PA-C Assoc. diagnoses: Megaloblastic anemia due to vitamin B12 deficiency, Elevated sed rate, Obstructive sleep apnea syndrome IMMUNOGLOBULINS,IGG,IGA,IGM [SQSERIMM] 03/20/24 06/19/24 12/27/23 Auth. provider: Juli Narayanan PA-C Assoc. diagnoses: Megaloblastic anemia due to vitamin B12 deficiency, Elevated sed rate, Obstructive sleep apnea syndrome FOLATE, SERUM [SQSERFOL] 03/20/24 06/19/24 12/27/23 Auth. provider: Juli Narayanan PA-C Assoc. diagnoses: Megaloblastic anemia due to vitamin B12 deficiency, Elevated sed rate, Obstructive sleep apnea syndrome VITAMIN B12 [SQB12] 03/20/24 06/19/24 12/27/23 Auth. provider: Juli Narayanan PA-C Assoc. diagnoses: Megaloblastic anemia due [...] diagnoses: Screening-pulmonary TB documented in this encounter [facility] 01-12-2024 Telephone encounter Note Please call [...] above. Please process accordingly. Lynne Ni MD [facility] 01-12-2024 Telephone encounter Note Images from [...] 3 months 06/02/24 06/03/23 11/24/23 Auth. provider: Vera Najera MD Assoc. diagnoses: Megaloblastic anemia due to vitamin B12 deficiency, Elevated sed rate COMP METABOLIC PANEL [SQCMP] 2/5 Every 3 months 06/02/24 06/03/23 11/24/23 Auth. provider: Vera Najera MD Assoc. diagnoses: Megaloblastic anemia due to vitamin B12 deficiency, Elevated sed rate IRON + TIBC [SQIRON] 2/5 Every 3 months 06/02/24 06/03/23 11/24/23 Auth. provider: Vera Najera MD Assoc. diagnoses: Megaloblastic anemia due to vitamin B12 deficiency, Elevated sed rate FERRITIN BLD [SQFERR] 2/5 Every 3 months 06/02/24 06/03/23 11/24/23 Auth. provider: Vera Najera MD Assoc. diagnoses: Megaloblastic anemia due to vitamin B12 deficiency, Elevated sed rate VITAMIN B12 BLOOD [SQB12] 2/5 Every 3 months 06/02/24 06/03/23 11/24/23 Auth. provider: Vera Najera MD Assoc. diagnoses: Megaloblastic anemia due to vitamin B12 deficiency, Elevated sed rate FOLATE SERUM [SQSERFOL] 2/5 Every 3 months 06/02/24 06/03/23 11/24/23 Auth. provider: Vera Najera MD Assoc. diagnoses: Megaloblastic anemia due to vitamin B12 deficiency, Elevated sed rate SED RATE WESTERGREN [SQWSR] 2/4 Every 3 months 06/09/24 06/10/23 11/24/23 Auth. provider: Vera Najera MD Assoc. diagnoses: Elevated sed rate Open Future (Single Instance) Lab Orders Expected Expires Ordered COMPREHENSIVE METABOLIC PANEL [SQCMP] 03/20/24 06/19/24 12/27/23 Auth. provider: Juli Narayanan PA-C Assoc. diagnoses: Megaloblastic anemia due to vitamin B12 deficiency, Elevated sed rate, Obstructive sleep apnea syndrome IRON AND TIBC [SQIRON] 03/20/24 06/19/24 12/27/23 Auth. provider: Juli Narayanan PA-C Assoc. diagnoses: Megaloblastic anemia due to vitamin B12 deficiency, Elevated sed rate, Obstructive sleep apnea syndrome COMPLETE BLOOD COUNT AND DIFFERENTIAL [SQCBCDIF] 03/20/24 06/19/24 12/27/23 Auth. provider: Juli Narayanan PA-C Assoc. diagnoses: Megaloblastic anemia due to vitamin B12 deficiency, Elevated sed rate, Obstructive sleep apnea syndrome FERRITIN [SQFERR] 03/20/24 06/19/24 12/27/23 Auth. provider: Juli Narayanan PA-C Assoc. diagnoses: Megaloblastic anemia due to vitamin B12 deficiency, Elevated sed rate, Obstructive sleep apnea syndrome IMMUNOGLOBULINS,IGG,IGA,IGM [SQSERIMM] 03/20/24 06/19/24 12/27/23 Auth. provider: Juli Narayanan PA-C Assoc. diagnoses: Megaloblastic anemia due to vitamin B12 deficiency, Elevated sed rate, Obstructive sleep apnea syndrome FOLATE, SERUM [SQSERFOL] 03/20/24 06/19/24 12/27/23 Auth. provider: Juli Narayanan PA-C Assoc. diagnoses: Megaloblastic anemia due to vitamin B12 deficiency, Elevated sed rate, Obstructive sleep apnea syndrome VITAMIN B12 [SQB12] 03/20/24 06/19/24 12/27/23 Auth. provider: Juli Narayanan PA-C Assoc. diagnoses: Megaloblastic anemia due [...] Lynne Ni MD Assoc. diagnoses: Screening-pulmonary TB [facility] 12-30-2023 Telephone encounter Note Spoke to pt aware of results and recommendations. [facility] 12-30-2023 Miscellaneous Notes Spoke to pt aware of results and recommendations. Please Call patient if MyChart note not read to review results/released to My Chart if tests completed at [facility]: One Borderline inflammatory test, wbc- will monitor [...] b12 every month documented in this encounter [facility] 12-30-2023 Telephone encounter Note Please Call patient if MyChart note not read to review results/released to My Chart if tests completed at [facility]: One Borderline inflammatory test, wbc- will monitor [...] likely reactive, continue vitamin b12 every month [facility] 12-27-2023 Telephone encounter Note Pt informed of MM message and denies any questions, needs or concerns at this time. Appointments verified. Enma Hamm RN [facility] 12-27-2023 Miscellaneous Notes Pt informed of MM message and denies any questions, needs or concerns at this time. Appointments verified. Enma Hamm RN Please call and inform the patient that I reviewed her [facility] records and there is no evidence of a blood clot and she does not need to be on blood thinners. Juli Narayanan PA-C documented in this encounter [facility] 12-27-2023 Telephone encounter Note Please call and inform the patient that I reviewed her [facility] records and there is no evidence of a blood clot and she does not need to be on blood thinners. Juli Narayanan PA-C [facility] Work Phone: 12-27-2023 Nurse Note Patient Identification confirmed: yes. Injection given and documented on MAR per provider order. Margret Cuenca MA [facility] 12-27-2023 Nurse Note Patient Identification confirmed: yes. Injection given and documented on MAR per provider order. Margret Cuenca MA documented in this encounter [facility] 12-27-2023 History of Present illness Narrative Images from the original note were not included. NAME: Tera Ariadna [facility] NO.: [id number] DATE OF SERVICE: December 27, 2023 (Liz) Some elements in this clinic note that are critical to medical decision making have been carefully reviewed and included from a prior clinic note dated: September 09, 2023 (Dania) Referring Provider: Dr. Manuel Ferris Additional Clinicians involved in Ariadna Haley's care: DIAGNOSIS: Multiple symptoms ASSESSMENT: 43 [...] labs 1 week before. Request records from [facility] from [facility]/elevated d-dimer Frequent infections and low [...] long time. Updated Visit, June 10, 2023: Ariadna returns today. She reports of extreme muscle [...] to anxiety. Updated Visit, April 20, 2023: Ariadna Haley returns for scheduled follow-up and monthly [...] lower lip done 2 days ago at [facility] - awaiting results. B12 helps especially [...] stable there. Updated Visit, August 27, 2022: Ariadna Haley returns for follow-up and B12 injection. She has missed a few B12 injections. She follows with multiple doctors including and inking machine tender, calculating machine operator, board hammer operator and PCP. She has been told they [...] but decreasing. Initial Visit, March 04, 2022: Ariadna Haley presents today Hematology and Oncology evaluation. [...] which included preparing to see the patient, [id number] patient care, completing clinical documentation, obtaining and/or reviewing separately obtained history, performing a medically appropriate examination, counseling and educating the patient/family/caregiver, ordering medications, tests, or procedures, communicating with other HCPs (not separately reported), independently interpreting results (not separately reported), communicating results to the patient/family/caregiver, and care coordination (not separately reported). Juli Narayanan PA-C Hematology and Oncology Services Provided at: [place], [place] CC: Manuel Ferris MD [id number] [facility] [id number] documented in this encounter [facility] 12-27-2023 Note [facility] 12-13-2023 History of Present illness Narrative [...] laboratory parameters, disease state markers and outcomes. Lump Maker Assessment Patient confirmed: Yes Med/dose confirmed: Yes Missed doses: No Estimated days supply on hand: 1 Next cycle/dose due: 12/16/23 Copay amount: 0 Payment confirmed: Yes Delivery method: FedEx Signature required: Waived on patient request Delivery address: [address] [place] [address] Delivery date: 12/17/23 Questions or concerns for [...] facility-administered medications on file prior to visit. [facility] CLINICAL ASSESSMENT - INFLAMMATORY CONDITIONS V6: Assessment to use: Refill [facility] VACCINE INFORMATION [facility] TREATMENT PLAN INFORMATION Luda Conde CPhT [facility] [phone] documented in this encounter [facility] 12-13-2023 Note [facility] 11-29-2023 Nurse Note Patient Identification confirmed: yes. Injection given and documented on JUL per provider order. Stacy Gutiérrez MA [facility] 11-29-2023 Nurse Note Patient Identification confirmed: yes. Injection given and documented on JUL per provider order. Stacy Gutiérrez MA documented in this encounter [facility] 11-26-2023 Telephone encounter Note Please sign pended script Maryam Schneider RN [facility] 11-26-2023 Miscellaneous Notes Please sign pended script Maryam Schneider RN documented in this encounter [facility] 11-15-2023 History of Present illness Narrative [...] laboratory parameters, disease state markers and outcomes. Lump Maker Assessment Patient confirmed: Yes Med/dose confirmed: Yes Missed doses: No Estimated days supply on hand: 1 Next cycle/dose due: 11/18/23 Copay amount: 0 Payment confirmed: Yes Delivery method: FedEx Signature required: Waived on patient request Delivery address: [address] [place] [address] Delivery date: 11/17/23 Questions or concerns for [...] facility-administered medications on file prior to visit. [facility] Visit Assessment - Inflammatory [...] efficacy: Yes Roland CamarilloD Clinical Pharmacist, [employer] [facility] ; Pool: P [facility] Pool #: [id number] documented in this encounter [facility] 11-15-2023 Note [facility] 11-11-2023 Telephone encounter Note Notify patient medication sent as requested Thank you. Patient's request for medication is as follows: Requested Prescriptions Pending Prescriptions Disp Refills azaTHIOprine (IMURAN) 50 mg tablet 270 tablet 1 Sig: TAKE 3 TABLETS BY MOUTH DAILY WITH FOOD. HOLD IF ON ANTIBIOTICS OR ILL. Prescription(s) as above. Please process accordingly. Lynne Ni MD [facility] 11-11-2023 Miscellaneous Notes Notify patient medication [...] 3 months 06/02/24 06/03/23 08/31/23 Auth. provider: Vera Najera MD Assoc. diagnoses: Megaloblastic anemia due to vitamin B12 deficiency, Elevated sed rate COMP METABOLIC PANEL [SQCMP] 3/ Every 3 months 06/02/24 06/03/23 08/31/23 Auth. provider: Vera Najera MD Assoc. diagnoses: Megaloblastic anemia due to vitamin B12 deficiency, Elevated sed rate IRON + TIBC [SQIRON] 3/5 Every 3 months 06/02/24 06/03/2308/30/24 Auth. provider: Vera Najera MD Assoc. diagnoses: Megaloblastic anemia due to vitamin B12 deficiency, Elevated sed rate FERRITIN BLD [SQFERR] 3/5 Every 3 months 06/02/24 06/03/23 08/31/23 Auth. provider: Vera Najera MD Assoc. diagnoses: Megaloblastic anemia due to vitamin B12 deficiency, Elevated sed rate VITAMIN B12 BLOOD [SQB12] 3/5 Every 3 months 06/02/24 06/03/23 08/31/23 Auth. provider: Vera Najera MD Assoc. diagnoses: Megaloblastic anemia due to vitamin B12 deficiency, Elevated sed rate FOLATE SERUM [SQSERFOL] 3/5 Every 3 months 06/02/24 06/03/23 08/31/23 Auth. provider: Vera Najera MD Assoc. diagnoses: Megaloblastic anemia due to vitamin B12 deficiency, Elevated sed rate SED RATE WESTERGREN [SQWSR] 3/4 Every 3 months 06/09/24 06/10/23 08/31/23 Auth. provider: Vera Najera MD Assoc. diagnoses: Elevated sed rate [...] (CRP) VITAMIN D 25 HYDROXY [SQVITD] 12/04/23 09/03/2424 Auth. provider: Lynne Ni MD Assoc. diagnoses: Vitamin D deficiency COMPLETE BLOOD COUNT AND DIFFERENTIAL [SQCBCDIF] 12/02/23 09/08/24 09/09/23 Auth. provider: Vera Najera MD Assoc. diagnoses: Megaloblastic anemia due to vitamin B12 deficiency, High total serum IgM COMPREHENSIVE METABOLIC PANEL [SQCMP] 12/02/23 09/08/24 09/09/23 Auth. provider: Vera Najera MD Assoc. diagnoses: Megaloblastic anemia due to vitamin B12 deficiency, High total serum IgM IRON AND TIBC [SQIRON] 12/02/23 09/08/24 09/09/23 Auth. provider: Vera Najera MD Assoc. diagnoses: Megaloblastic anemia due to vitamin B12 deficiency, High total serum IgM FERRITIN [SQFERR] 12/02/23 09/08/24 09/09/23 Auth. provider: Vera Najera MD Assoc. diagnoses: Megaloblastic anemia due to vitamin B12 deficiency, High total serum IgM VITAMIN B12 [SQB12] 12/02/23 09/08/24 09/09/23 Auth. provider: Vera Najera MD Assoc. diagnoses: Megaloblastic anemia due to vitamin B12 deficiency, High total serum IgM FOLATE, SERUM [SQSERFOL] 12/02/23 09/08/24 09/09/23 Auth. provider: Vera Najera MD Assoc. diagnoses: Megaloblastic anemia due to vitamin B12 deficiency, High total serum IgM IMMUNOGLOBULIN A [SQIGA] 12/02/23 03/02/24 09/09/23 Auth. provider: Vera Najera MD Assoc. diagnoses: Megaloblastic anemia due to vitamin B12 deficiency, High total serum IgM IMMUNOGLOBULIN E [SQIGE] 12/02/23 03/02/24 09/09/23 Auth. provider: Vera Najera MD Assoc. diagnoses: Megaloblastic anemia due to vitamin B12 deficiency, High total serum IgM IMMUNOGLOBULIN G [SQIGG] 12/02/23 03/02/24 09/09/23 Auth. provider: Vera Najera MD Assoc. diagnoses: Megaloblastic anemia due to vitamin B12 deficiency, High total serum IgM IMMUNOGLOBULIN M [SQIGM] 12/02/23 03/02/24 09/09/23 Auth. provider: Vera Najera MD Assoc. diagnoses: Megaloblastic anemia due to vitamin B12 deficiency, High total serum IgM SEDIMENTATION RATE, WESTERGREN [SQWSR] 12/02/23 03/02/24 09/09/23 Auth. provider: Vera Najera MD Assoc. diagnoses: Megaloblastic anemia due to vitamin B12 deficiency, High total serum IgM documented in this encounter [facility] 11-11-2023 Telephone encounter Note Images from [...] 3 months 06/02/24 06/03/23 08/31/23 Auth. provider: Vera Najera MD Assoc. diagnoses: Megaloblastic anemia due to vitamin B12 deficiency, Elevated sed rate COMP METABOLIC PANEL [SQCMP] 3/ Every 3 months 06/02/24 06/03/23 08/31/23 Auth. provider: Vera Najera MD Assoc. diagnoses: Megaloblastic anemia due to vitamin B12 deficiency, Elevated sed rate IRON + TIBC [SQIRON] 3/5 Every 3 months 0106/03/23 08/31/23 Auth. provider: Vera Najera MD Assoc. diagnoses: Megaloblastic anemia due to vitamin B12 deficiency, Elevated sed rate FERRITIN BLD [SQFERR] 3/5 Every 3 months 06/02/24 06/03/23 08/31/23 Auth. provider: Vera Najera MD Assoc. diagnoses: Megaloblastic anemia due to vitamin B12 deficiency, Elevated sed rate VITAMIN B12 BLOOD [SQB12] 3/5 Every 3 months 06/02/24 06/03/23 08/31/23 Auth. provider: Vera Najera MD Assoc. diagnoses: Megaloblastic anemia due to vitamin B12 deficiency, Elevated sed rate FOLATE SERUM [SQSERFOL] 3/5 Every 3 months 06/02/24 06/03/23 08/31/23 Auth. provider: Vera Najera MD Assoc. diagnoses: Megaloblastic anemia due to vitamin B12 deficiency, Elevated sed rate SED RATE WESTERGREN [SQWSR] 3/4 Every 3 months 06/09/24 06/10/23 08/31/23 Auth. provider: Vera Najera MD Assoc. diagnoses: Elevated sed rate [...] protein (CRP) VITAMIN D 25 HYDROXY [SQVITD] 07/09/03/24 09/04/23 Auth. provider: Lynne Ni MD Assoc. diagnoses: Vitamin D deficiency COMPLETE BLOOD COUNT AND DIFFERENTIAL [SQCBCDIF] 12/02/23 09/08/24 09/09/23 Auth. provider: Vera Najera MD Assoc. diagnoses: Megaloblastic anemia due to vitamin B12 deficiency, High total serum IgM COMPREHENSIVE METABOLIC PANEL [SQCMP] 12/02/23 09/08/24 09/09/23 Auth. provider: Vera Najera MD Assoc. diagnoses: Megaloblastic anemia due to vitamin B12 deficiency, High total serum IgM IRON AND TIBC [SQIRON] 12/02/23 09/08/24 09/09/23 Auth. provider: Vera Najera MD Assoc. diagnoses: Megaloblastic anemia due to vitamin B12 deficiency, High total serum IgM FERRITIN [SQFERR] 12/02/23 09/08/24 09/09/23 Auth. provider: Vera Najera MD Assoc. diagnoses: Megaloblastic anemia due to vitamin B12 deficiency, High total serum IgM VITAMIN B12 [SQB12] 12/02/23 09/08/24 09/09/23 Auth. provider: Vera Najera MD Assoc. diagnoses: Megaloblastic anemia due to vitamin B12 deficiency, High total serum IgM FOLATE, SERUM [SQSERFOL] 12/02/23 09/08/24 09/09/23 Auth. provider: Vera Najera MD Assoc. diagnoses: Megaloblastic anemia due to vitamin B12 deficiency, High total serum IgM IMMUNOGLOBULIN A [SQIGA] 12/02/23 03/02/24 09/09/23 Auth. provider: Vera Najera MD Assoc. diagnoses: Megaloblastic anemia due to vitamin B12 deficiency, High total serum IgM IMMUNOGLOBULIN E [SQIGE] 12/02/23 03/02/24 09/09/23 Auth. provider: Vera Najera MD Assoc. diagnoses: Megaloblastic anemia due to vitamin B12 deficiency, High total serum IgM IMMUNOGLOBULIN G [SQIGG] 12/02/23 03/02/24 09/09/23 Auth. provider: Vera Najera MD Assoc. diagnoses: Megaloblastic anemia due to vitamin B12 deficiency, High total serum IgM IMMUNOGLOBULIN M [SQIGM] 12/02/23 03/02/24 09/09/23 Auth. provider: Vera Najera MD Assoc. diagnoses: Megaloblastic anemia due to vitamin B12 deficiency, High total serum IgM SEDIMENTATION RATE, WESTERGREN [SQWSR] 12/02/23 03/02/24 09/09/23 Auth. provider: Vera Najera MD Assoc. diagnoses: Megaloblastic anemia due to vitamin B12 deficiency, High total serum IgM [facility] 10-28-2023 Telephone encounter Note Pt read [employer] message. [facility] 10-28-2023 Miscellaneous Notes Pt read [employer] message. Please call patient. Thank you for [...] Warm regards, :) documented in this encounter [facility] 10-28-2023 Telephone encounter Note Please call [...] you feel better soon! Warm regards, :) [facility] 10-27-2023 Nurse Note Patient Identification confirmed: yes. Injection given and documented on MAR per provider order. Margret Cuenca MA [facility] 10-27-2023 Nurse Note Patient Identification confirmed: yes. Injection given and documented on MAR per provider order. Margret Cuenca MA documented in this encounter [facility] 10-12-2023 Note [facility] 10-05-2023 History of Present illness Narrative [...] visit. 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 Labs sent to [facility]/completed in 06/2021 (no results faxed to office, [...] dexamethasone Reports pain 2-11/30 No falls/fx/trauma/illness/oral sores/rash/hairloss/jaw pain/dysphagia/epistaxis/hemoptysis . No adverse [...] pain: yes H/o precedent/frequent infection(s): as above Enthesopathy/Selene's/heel/plantar tenderness: hands random painful/tingling Skin thickening, psoriasis, [...] COVID-19 original vaccine, age 12+ yr, monovalent ([facility] - PURPLE TOP) 09/28/2020 10/19/2020 05/26/2021 COVID-19 vaccine, age 12+ yr, 2022- season ([facility]) 02/23/2023 COVID-19 vaccine, age 12+ yr, bivalent ([facility]) 02/08/2022 Pneumovax no Flu shot no Tetanus [...] (33);NL cbc, cmp, negative hla b27; Outside [place] 06/2021 low vitamin D 16, vitamin b12-307;high wbc 11.1, esr 21;NL rest of hgb 12.2, plts 314, crp<0.5mg/dL; 03/05/21 low vitamin D 11 (6.7), vitamin b12-358;high esr 33;NL crp 0.5, ck 59, aldolase 3.9;negative parmod, ccp<15, hepatitis panel,quantiferon tb; Outside 11/2020 high [...] measures, may consider osteoporosis treatment if on 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 Start [...] touching your toes, sit-ups, using row machine petroleum terminal plant operator pain recommendations per primary care provider/pain [...] video & audio (virtual) or phone or [id number] patient care, completing clinical documentation, obtaining and/or [...] had the pleasure of seeing your patient, Ariadna Haley. I have enclosed a copy of [...] Workers' Compensation? No Do you need an stunt double? No [facility] MYCHART ZOOM MESSAGE Question 2023 11:04 PM EDT - Filed by Patient Install Zoom I have Zoom installed CC PROMIS CAT V2.0-PHYSICAL FUNCTION-28 DAYS Question 2023 [...] SLAQ Score (range: 0 - 47) [address] [facility] PROVIDER UNDERSTANDING CURRENT HEALTH RHEUMATOLOGY Question 2023 [...] of Right Forearm or Lower Left Leg. [facility] PROMIS 10 ADULT SHORT FORM V1.0 GLOBAL [...] (WITHIN +/- 5) documented in this encounter [facility] 10-05-2023 Note [facility] 09-30-2023 Nurse Note Patient Identification confirmed: yes. Injection given and documented on JUL per provider order. Renea Schneider MA [facility] 09-22-2023 Evaluation note Authored September 22, [...] pantoprazole and monitor symptoms [facility] Work Phone: 1(120) 894-147304-22-2024 [facility] Instructions* Patient Instructions* Vera Najera MD - 09/09/2023 4:47 PM EDT Follow up in 13 Weeks - labs 1 week before. B12 shot every 4 weeks. Continue Folic acid. [facility] History of Present illness Narrative* Vera Najera MD - 09/09/2023 4:30 PM EDT NAME: Ariadna Haley [facility] NO.: [id number] DATE OF SERVICE: September 09, 2023 [facility] Some elements in this clinic note that are critical to medical decision making have been carefully reviewed and included from a prior clinic note dated: June 10, 2023 (Dania) Referring Provider: Dr. Manuel Ferris Additional Clinicians involved in Ariadna Haley's care: VIRTUAL VISIT PROGRESS NOTE This is a virtual visit using [employer] Secretary Video Call. It required patient- provider interaction for the medical decision making as documented below. I have communicated my name and active licensure. The patient's identity and physical location wereverified at the time of this visit. Either the patient or their legal insurance claims representative has been informed of the risks [...] long time. Updated Visit, June 10, 2023: Ariadna returns today. She reports of extreme muscle [...] to anxiety. Updated Visit, April 20, 2023: Ariadna Haley returns for scheduled follow-up and monthly [...] lower lip done 2 days ago at [facility] - awaiting results. B12 helps especially [...] stable there. Updated Visit, August 27, 2022: Ariadna Haley returns for follow-up and B12 injection. She has missed a few B12 injections. Shefollows with multiple doctors including and inking machine tender, calculating machine operator, board hammer operator and PCP. She has been told they [...] but decreasing. Initial Visit, March 04, 2022: Ariadna Haley presents today Hematology and Oncology evaluation. [...] reported), and communicating results to the patient/family/caregiver. Vera Najera MD, CPE Hematology and Oncology Services Provided at: [place], [place] CC: Manuel Ferris MD [address] [facility] [id number] [facility] Miscellaneous Notes* Telephone Encounter - Maynor Bryson MA - 09/06/2023 7:21 AM EDT patient has viewed the [employer] message per [employer]. * Telephone Encounter - Lynne Ni MD - 09/04/2023 6:30 PM EDT Please Call patient if [facility] note not read to review results/released to [...] Ni MD documented in this [facility]04-09-2024 Nurse Note* Margret Cuenca MA - 08/31/2023 10:35 AM EDT Patient Identification confirmed: yes. Injection given and documented on MAR per provider order. Margret Cuenca MA [facility] Note* Renea Schneider MA - 09/30/2023 10:53 AM EDT Patient Identification confirmed: yes. Injection given and documented on JUL per provider order. Renea Schneider MA [facility]24 [facility]03[facility]14-[facility] Nurse Note* Margret Cuenca - 08/05/2023 11:16 AM EDT Patient Identification confirmed: yes. Injection given and documented on JUL per provider order. Margret Cuenca [facility]24 [facility]02[facility]20-[facility] Nurse Note* Margret Cuenca - 07/13/2023 12:01 PM EST Patient Identification confirmed: yes. Injection given and documented on JUL per provider order. Margret Cuenca [facility] History of Present illness Narrative* Lois Holm MD - 07/13/2023 9:30 AM EST Cardiology Consultation- New Consult Reason for referral: Palpitations HPI: Ariadna Haley is a 42 y.o. female who is being seen in the office for the first time to assess symptoms of chest tightness and palpitation. She was diagnosed with systemic lupus several years ago and is being cared for at the [facility] utilizing steroids, Plaquenil and injectable medic ation(Benlystal). The patient record indicating having had cardiac catheterization in [place] 3 years ago which was normal. I have the report available for my review. [facility] [...] lupus being treated by rheumatology at the [facility] on steroids, Plaquenil and monoclonal [...] , Rfl: ergocalciferol (Vitamin D-2) 1.25 MG (79902 UT) capsule, Take 1 capsule (50,000 Units) [...] unspecified SLE type, unspecified organ involvement status (CMS/[facility]) 6. Palpitations 7. Obstructive sleep apnea syndrome 8. Morbid obesity ([facility]) 9. Bilateral lower extremity edema EKG done [...] exam, discussion and plan. [facility] Phone: 1(278) 261-546002-20-2024 Instructions* Patient Instructions* Lila Tejeda LPN - [...] time of your visit. [facility] Work Phone: 1(915) 436-844802-13-2024 History of Present illness Narrative* Kade Richardson MD - 07/06/2023 2:30 PM EST Subjective Ariadna Haley is a 42 y.o. female. HPI [...] , Rfl: ergocalciferol (Vitamin D2) 1.25 MG (42343 UT) capsule, Take 50,000 Units by mouth [...] Chronic laryngopharyngitis COVID-19 vaccine administered x 2 ([employer]) History of removal of cyst 2013 tailbone [...] reflexes: Stu's absent. Ankle clonus absent. Coordination Yzwbcg-pb-whlq, rapid alternating movements and liwu-kn-yrnx normal bilaterally without dysmetria. Gait Normal casual, toe, heel and tandem gait. Romberg is absent. Assessment/Plan Diagnoses and all orders for this visit: Autoimmune disease (CMS/[facility]) [...] Lyrica 100 mg TID. She is on cukgbzafta92 mg once daily. Increase prednisone 10 mg BID for 10 days. documented in this encounterFreeman Heart [id number] [facility]01-18-2024 [facility]01-17-2024 History of Present illness Narrative* Michelle Britton, NURSE PRN-HYPERION ESSBASE DEVELOPER - 06/09/2023 8:30 AM EST Ariadna Haley is a 42 y.o. female that presents to the office today for new patient evaluation asself referral for palpitations and elevated heart rates. She has a PMH of HTN, HLD, tachycardia, anemia, JOSE RAFAEL with CPAP compliance, lupus, autonomic dysfunction, arthritis, chronic back pain. She has undergone cardiac workup in the past in [place] as noted below. She also states that she follows withNeurology for possible POTS syndrome. Admits to daily tobacco use, 1 pack of cigarettes per day. Denies vaping, ETOH, recreational drugs. Admits to drinking approximately 1 pot of coffee per day. Denies daily exercise. 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 Family history negative [...] , Rfl: ergocalciferol (Vitamin D-2) 1.25 MG (00077 UT) capsule, Take 1 capsule (50,000 Units) [...] to prepare this document. documented in this [facility] Work Phone: [phone]) 368-980401-09-2024 [facility] Instructions* Patient Instructions* Christie Phan MD - 05/26/2023 5:43 PM EST Images from the original note were not included. https://DxTerity/tofu-bolognese/ https://nutritionstudies.org/qoi-mp-tuboxmyik-pbdhdlps-wc-bdgti-o-ijaey-liwp-randee ef-xtbyg-yzkecdvia/ https://www.Quantcast.com/blog/plantbasedkids https://CleanMyCRM.[employer]/wozej-duqjt-nhdn-for-kids/ https://Web Wonks.[employer]/jau-qd-fhdkcimzzy-svwh-nync-xl-q-oxuyb-wfehz-diet/ WHAT TO EAT? Breakfast: Overnight Oats Base ingredients: 1/3 cup rolled oats, 1/3 cup plain almond milk, 1tsp kyle seeds. Optional add-ins: cinnamon, flax seeds, honey or maple syrup, nut butter, chopped nuts. Toppings: Any fresh fruit chopped. Mix together and place in refrigerator. Can make 5 at a time for the whole week. Homemade fresh oatmeal. Can also make in the crockpot. Sudanese muffin/almond butter topped with fresh berries Sudanese muffin, cooked egg/egg white, tomato, thin slice south african cheese Fresh berries, hard boiled egg, whole wheat toast Plain yogurt topped with berries, unsalted nuts, drizzle of honey Whole grain toast/Sudanese muffin topped with mashed avocado and tomatoes Lunch: Dinner leftovers packed in Tupperware, side of fruit Salad mixture topped with a protein (chick breast/tuna/hard boiled egg/beans), dressing and side offruit Dinner - Refer to plate inventory control planner pictures to help select foods and portion ratios of protein, vegetables/starches. Keep it simple and rotate your favorite meals. Sheet nix meals Soups Grilled protein/vegetables/side of starch (plate inventory control planner picture) Stir can with protein, mixed vegetables, and riced cauliflower or portion controlled whole grain rice. Make your own bowls - Icelandic/Czech/ theme [place] with Zoodles (spiralized vegetable noodles). Roasted vegetable wraps Alter traditional recipes to reflect HIGH QUALITY ingredients in the right QUANTITIES. Snacks - portion controlled: Raw veggies (can have with hummus, mashed avocado, salsa). Unsalted nuts Fruit (1 serving). (optional side of peanut butter) Air pop popcorn Wheeler and low fat south african cheese rolled up String cheese Protein balls (mix rolled oats, nut butter, flax seeds, dash almond milk). Beverages: Water Coffee, Hot tea Unsweetened ice tea EATING OUT: Research menu online, include nutritional information. Make your order decision before getting to restaurant. Stick to recommended portions (plate inventory control planner picture). Ask for substitutions or modifications. [...] potato, sprouted grain bread, chick peas https://www.[employer]maker [employer].com/article/8786968/tczmvhxvweznp-glnk-xvdq-for-beginners / https://www.[employer].com/category/4274/tqgjfzxvpokdi-tinp-zwfqwt/ https://www.[employer].com/category/4300/ufxjbnepfkwdz-lted-zaml-plans/ My current favorite cookbooks are documented in this encounterPe[facility]01-03-2024 History of Present illness Narrative* Christie Phan MD - 05/26/2023 5:00 PM EST Images from the original note were not included. [facility] Follow-Up Appointment Assessment Ariadna Haley is a 41 year old female [...] - WELLNESS; Future F/U: 3 months SUBJECTIVE: Ariadna Haley is a 42 year old female [...] the date of the service which included acnx-cm-zrdz patient care, completing clinical documentation, performing a medically appropriate examination, counseling and educating the patient/family/caregiver, and ordering medications, tests, or procedures. Christie Phan MD, MA, [facility] Lifestyle Medicine Specialist documented in this encounterPeoples Hospital01-03-2024 [facility]12-[facility]23 Miscellaneous Notes* Telephone Encounter - Renate Lawrence MA - 04/26/2023 5:26 PM EST Medication pending with new pharmacy information. documented in this encounterPeoples Hospital12-04-2023 History of Present illness Narrative* Christie Phan MD - 04/26/2023 4:15 PM EST Images from the original note were not included. [facility] Virtual Follow-Up Appointment Assessment Ariadna Haley is a 41 year old female with a PMH of Chronic Pain, Chronic Fatigue, Fibromyalgia, HLD, B12 def, Elevated ESR, anemia, lupus, depression, CHRISTIAN +, bit d def., Obesity (BMI 41.65) who is here to improve pain and weight with lifestyle and integrative medicine. Plan Will start phentermine and Topamax, then LDN at least 2 weeks later. Ariadna was seen today for established patient follow-up. [...] confirm your consent to be seen virtually. Ariadna Haley is a 42 year old female [...] the date of the service which included fsxg-wf-vkgt patient care, completing clinical documentation, performing a medically appropriate examination, counseling and educating the patient/family/caregiver, and ordering medications, tests, or procedures. I have communicated my name and active licensure. The patient's identity and physical location wereverified at the time of this visit. Either the patient or their legal insurance claims representative has been informed of the risks and benefits of -- and alternatives to -- treatment through a remote evaluation andconsents to proceed with the evaluation remotely. Christie Phan MD, MA, [facility] Lifestyle Medicine Specialist documented in this encounterPeoples Hospital12-04-2023 Nurse Note* Renate Lawrence MA - 04/26/2023 2:46 PM EST Spoke to Ariadna Haley, confirmed patient is registered on [facility] and is prepared for their appointment. Confirmed the patient has updated medications, allergies, and questionnaires via [employer]. Informed patient if there is an issue with the connection, provider will send the patient a secure link. If provider is running late, patient should remain connected to the visit. Patient verbalized understanding. documented in this [facility]11-30-2023 Miscellaneous Notes* Telephone Encounter - Enma Hamm RN - 04/22/2023 3:48 PM EST Pt called for Iron results; possible need for transfusion. Pt aware no need for iron infusion at this time. Enma Hamm, RN documented in this [facility]11-24-2023 History of Present illness Narrative* Kenzie Shannon - 04/16/2023 10:55 AM EST Patient Identification confirmed: yes. Injection given and documented on JUL per provider order. Kenzie Shannon documented in this [facility]10-27-2023 History of Present illness Narrative* Kenzie Shannon - 03/19/2023 11:06 AM EDT Patient Identification confirmed: yes. Injection given and documented on MAR per provider order. Kenzie Shannon documented in this [facility]10-24-2023 History of Present illness Narrative* Marija Ziegler - 03/16/2023 10:13 AM EDT CMN RECEIVED BY [employer] VIA FAX, COMPLETED, AND PLACED IN PROVIDER MAILBOX FOR SIGNATURE On 2022 By Marija Ziegler [employer]. [employer] COMPANY SENDING CMN: JOSH SIGNED AND DATED CMN, FAXED TO DME & CONFIRMATION PAGE RECEIVED: 23 documented in this encounterPeoples Hospital10-19-2023 History of Present illness Narrative* Beatriz [...] LPN In Department: RHEUMATOLOGY documented in this encounterPeoples Hospital10-18-2023 Miscellaneous Notes* Telephone Encounter - Christie Phan MD - 03/10/2023 2:18 PM EDT Spoke with patient. We stopped her trulicity because of side effects. She only took the cymbalta for a week. She will restart and we will see how she is doing in 2 months. Have also ordered insulin labs to check for insulin resistance. documented in this encounterPeoples Hospital10-09-2023 Miscellaneous Notes* Telephone Encounter - Lynne Ni MD - 03/01/2023 3:27 PM EDT For chart: Eye exam 02/26/23 no ocular complication related to medication. * Telephone Encounter - Beatriz Sanchez LPN - 03/01/2023 2:38 PM EDT [facility] exam from [facility] Placed on your desk for review. documented in this encounterPeoples Hospital09-29-2023 Nurse Note* Radha Kebede MA - 02/19/2023 11:48 AM EDT Patient Identification confirmed: yes. Injection given and documented on JUL per provider order. Radha Schofield MA documented in this encounterPeoples Hospital09-29-2023 Instructions* Patient Instructions* Vera Najera MD - 02/19/2023 11:40 AM EDT B12 shot today and every 4 weeks. Continue Folic acid. Follow up in 8 Weeks - labs 1 week before. documented in this encounterPeoples Hospital09-29-2023 History of Present illness Narrative* Vera Najera MD - 02/19/2023 11:32 AM EDT Images from the original note were not included. AMBULATORY TELEPHONE VISIT Ariadna B Jose Carlosfrancisco javier has consented to this telephone encounter. Persons Present: Patient and myself Chief Complaint/Reason: Anemia; To review recent blood work. HPI: Total Time Spent: 21 minutes Rebekah Rojas APRN.HYPERION ESSBASE DEVELOPER NAME: Ariadna Haley CLINIC NO.: [id number] DATE OF SERVICE: February 19, 2023 (Dania) Some elements in this clinic note that are critical to medical decision making have been carefully reviewed and included from a prior clinic note dated: December 17, 2022 (Bob) & October 22, 2022 (Dania) Referring Provider: Dr. Manuel Ferris Additional Clinicians involved in Ariadna Haley's care: DIAGNOSIS: Multiple symptoms ASSESSMENT: 42 [...] lower lip done 2 days ago at [facility] - awaiting results. B12 helps especially [...] stable there. Updated Visit, August 27, 2022: Ariadna Haley returns for follow-up and B12 injection. She has missed a few B12 injections. Shefollows with multiple doctors including and inking machine tender, calculating machine operator, board hammer operator and PCP. She has been told they [...] but decreasing. Initial Visit, March 04, 2022: Ariadna Haley presents today Hematology and Oncology evaluation. [...] which included preparing to see the patient, xiry-is-komy patient care, completing clinical documentation, performing a medically appropriate examination, counseling and educating the patient/family/caregiver, ordering medications, tests, or p rocedures, and independently interpreting results (not separately reported). Vera Najera MD, CPE Hematology and Oncology Services Provided at: [place], [place] CC: Manuel Ferris MD [address] [address] documented in this encounterPeoples Hospital09-26-2023 Miscellaneous Notes* Telephone Encounter - Lynne [...] Lynne Ni MD * Telephone Encounter - Paul BraswelljewelsHODA gamble - 02/15/2023 8:04 AM EDT Most recent [...] RAYRAY INJECTION TEACHING 03/11/2023 7:30 AM [facility] NICK[facility] VIDEO SPEC EST 08/12/2023 9:00 AM [facility] NICKIE Last Ophthalmology Check for Plaquenil [...] diagnoses: Vitamin D deficiency documented in this encounterPeoples Hospital09-18-2023 Miscellaneous Notes* Telephone Encounter - Mirela Carlos - 02/08/2023 11:12 AM EDT Spoke with patient Will get labs done when she does labs in Dec for Dre/Onc Mailed orders for DXA to pt so she can go to [facility] Pre cert Benlyst Scheduled Teaching visit for [...] density (1st time) patient requests order for Carl Please schedule follow up office visit for [...] accordingly. Lynne Ni MD documented in this encounterPeoples Hospital09-14-2023 History of Present illness Narrative* Carlene Rendon - 02/04/2023 9:31 AM EDT [facility] received prescription(s) for Benlysta from Dr. Ni. Benefits investigation was conducted, indicating that a prior authorization is required by patients plan with [facility]. Encounter will be updated once prior authorization has been submitted by [facility]. Carlene Rendon CPhT [facility], Inflammatory P: [phone] F: [phone] documented in this encounterPeoples Hospital09-14-2023 History of Present illness Narrative* Lynne [...] visit. Either the patient or their legal insurance claims representative has been informed of the risks [...] neurology/on metoprolol for POTs, avoid aggravating triggers, petroleum terminal plant operator pain recommendations per primary care provider/pain [...] in flares, better with steroids. Reports pain 10. minimal AM stiffness. COVID vaccine 09/28/20, , [...] Due for eye exam. Labs sent to [facility]/completed in 06/2021 (no results faxed to office, [...] pain: yes H/o precedent/frequent infection(s): as above Enthesopathy/Selene's/heel/plantar tenderness: hands random painful/tingling Skin thickening, psoriasis, [...] COVID-19 original vaccine, age 12+ yr, monovalent ([facility] - PURPLE TOP) 09/28/2020 10/19/2020 05/26/2021 COVID-19 vaccine, age 12+ yr, bivalent ([facility]) 02/08/2022 Pneumovax no Flu shot no Tetanus [...] (33);NL cbc, cmp, negative hla b27; Outside [place] 06/2021 low vitamin D 16, vitamin b12-307;high [...] rate M25.531, M25.532 Bilateral wrist pain Z79.52 USP 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 M81.8, T38.0X5A [...] measures, may consider osteoporosis treatment if on custodial steroids/abnormal bmd, take vitamin D script if [...] neurology/on metoprolol for POTs, avoid aggravating triggers, petroleum terminal plant operator pain recommendations per primary care provider/pain clinic/patient currently declined cymbalta/lyrica, see ortho, prn brace, start fall precautions, answered all questions and concerns, patient voiced understanding. RECOMMENDATION/PLAN: [facility] on 02/04/23 DXA-AXIAL SKELETON DXA-FOREARM SKELETON Reviewed [...] (200mg) daily with a meal Please see feather curling machine operator every 6-12months while on Hydroxychloroquine. Start [...] video & audio (virtual) or phone or ruob-an-lowi patient care, completing clinical documentation, obtaining and/or [...] had the pleasure of seeing your patient, Ariadna Haley. I have enclosed a copy of [...] Gay Enciso CNP;Dr.Douglas Sai Ferris MD [facility] AMBULATORY VISIT INTAKE QUESTIONNAIRE Question 02/02/2023 10:32 [...] Workers' Compensation? No Do you need an stunt double? No [facility] MYCHART ZOOM MESSAGE Question 02/02/2023 10:32 PM [...] < or = 5) documented in this encounterPeoples Hospital09-14-2023 Instructions* Patient Instructions* Lynne Ni MD [...] (200mg) daily with a meal Please see feather curling machine operator every 6-12months while on Hydroxychloroquine. 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 [...] touching your toes, sit-ups, using row machine petroleum terminal plant operator pain recommendations per primary care provider/pain [...] your usual activities immediately. documented in this encounterPeoples Hospital09-05-2023 Miscellaneous Notes* Telephone Encounter - Maynor Bryson MA - 01/26/2023 7:46 AM EDT patient has viewed the [employer] message per [employer]. * Telephone Encounter - Lynne Ni MD - 01/24/2023 8:04 PM EDT Please Call patient if [facility] note not read to review results/released to My Chart if tests completed at [facility]: mildly high normal wbc- will monitor. [...] accordingly. Lynne Ni MD documented in this encounterPeoples Hospital09-01-2023 Nurse Note* Radha Kebede MA - 01/22/2023 12:17 PM EDT Patient Identification confirmed: yes. Injection given and documented on JUL per provider order. Radha Schofield MA documented in this encounterPeoples Hospital08-22-2023 Miscellaneous Notes* Telephone Encounter - Christie [...] the above prescription(s) to electronically send to [facility] pharmacy. Milagro Mendiola MA documented in this encounterPeoples Hospital08-11-2023 History of Present illness Narrative* Misty Nelson MD - 01/01/2023 10:51 AM EDT VIRTUAL VISIT PROGRESS NOTE This is a virtual visit using [facility] video visit. It required patient-provider interaction for themedical decision making as documented below. I have communicated my name and active licensure. The patient's identity and physical location wereverified at the time of this visit. Either the patient or their legal insurance claims representative has been informed of the risks [...] otitis or sinusitis No pneumonia She sees calculating machine operator and was diagnosed with lupus She is on Plaquenil, 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 Prednisone 10mg once daily for the past year; every few months she gets treated with higher doses of prednisone for flares of her symptoms The medications seem to help the body aches She saw the rn orthopedic Treated with B12 and folic acid We [...] visit. Misty Nelson MD documented in this encounterPeoples Hospital07-28-2023 Miscellaneous Notes* Telephone Encounter - Rebekah Rojas APRN.CNP - 12/18/2022 10:48 AM EDT Spoke with patient this morning, 12/18/2022. Rebekah Rojas APRN.CNP * Telephone Encounter - Lidia Argueta RN - 12/18/2022 9:31 AM EDT Pt called coroner technician service last evening stating she was suppose to have a phone call with Rebekah at 330 and never received a call. Pt is still waiting (536 pm 12/17/22). Please advise Lidia Argueta RN documented in this encounterPeoples Hospital07-28-2023 History of Present illness Narrative* Rebekah Rojas APRN.HYPERION ESSBASE DEVELOPER - 12/18/2022 9:07 AM EDT Images from the original note were not included. AMBULATORY TELEPHONE VISIT Ariadna Haley has consented to this telephone encounter. [...] her follow-up. Total Time Spent: 21 minutes Rebekah Rojas APRN.HYPERION ESSBASE DEVELOPER NAME: Ariadna Haley [facility] NO.: [id number] DATE OF SERVICE: October 22, 2022 (Dania) Some elements in this clinic note that are critical to medical decision making have been carefully reviewed and included from a prior clinic note dated: August 27, 2022 (Bob) Referring Provider: Dr. Manuel Ferris Additional Clinicians involved in Ariadna Haley's care: DIAGNOSIS: Multiple symptoms ASSESSMENT: 42 [...] lower lip done 2 days ago at [facility] - awaiting results. B12 helps especially [...] stable there. Updated Visit, August 27, 2022: Ariadna Haley returns for follow-up and B12 injection. She has missed a few B12 injections. Shefollows with multiple doctors including and inking machine tender, calculating machine operator, board hammer operator and PCP. She has been told they [...] but decreasing. Initial Visit, March 04, 2022: Ariadna Haley presents today Hematology and Oncology evaluation. [...] ECOG PERFORMANCE STATUS: 0 PHYSICAL EXAMINATION: Vitals: [facility] 02/26/2022 There is no height or weight [...] which included preparing to see the patient, mcjf-ca-vcbh patient care, completing clinical documentation, performing a medically appropriate examination, counseling and educating the patient/family/caregiver, ordering medications, tests, or p rocedures, and independently interpreting results (not separately reported). Vera Abhyankar, MD, CPE Hematology and Oncology Services Provided at: [place], [place] CC: aMnuel Ferris MD [address] [facility] [address] documented in this encounterPeoples Hospital07-26-2023 Miscellaneous Notes* Telephone Encounter - Pamella Bettencourt RN - 12/16/2022 1:14 PM EDT Pt notified and verbalizes understanding. Clerical: Please change tomorrow's appointment to a phone visit at the end of Rebekah's day. Preferred number is [phone]. In addition, pt will be in next 12/25/22 @ 1130 for her B12 shot. Please add her to the MA schedule. Thanks! Pamella Bettencourt RN * Telephone Encounter - Rebekah Rojas APRN.TRUE - 12/16/2022 12:56 PM EDT That would be okay. Have her added at the end of the day. Thanks, Rebekah Rojas APRN.HYPERION ESSBASE DEVELOPER * Telephone Encounter - Pamella Bettencourt RN - 12/16/2022 11:01 AM EDT Pt is scheduled for RV w/ Rebekah & B12 tomorrow. She would like to make this a telephone appointment instead and come back next week for B12. Pt had her labs drawn last week. Rebekah: Any objections to meeting w/ pt over the phone tomorrow or would you prefer we switch her toVik's schedule? Pamella Bettencourt RN documented in this encounterPeoples Hospital07-23-2023 Miscellaneous Notes* Telephone Encounter - Vera Najera MD - 12/13/2022 8:59 PM EDT [...] advise Enma Hamm RN documented in this encounterPeoples Hospital07-04-2023 Miscellaneous Notes* Telephone Encounter - Lynne [...] accordingly. Lynne Ni MD documented in this encounterPeoples Hospital06-29-2023 Nurse Note* Margret Cuenca - 11/19/2022 11:01 AM EDT Patient Identification confirmed: yes. Injection given and documented on JUL per provider order. Margret Cuenca documented in this encounterPeoples Hospital06-01-2023 Nurse Note* Stacy Gutiérrez Ma - 10/22/2022 11:50 AM EDT Patient Identification confirmed: yes. Injection given and documented on JUL per provider order. Stacy Gutiérrez Ma documented in this [facility]06-01-2023 Instructions* Patient Instructions* Vera Najera MD - 10/22/2022 11:43 AM EDT B12 Shot today and every 4 weeks. Continue Folic acid. Follow up in 8 Weeks - labs 1 week before. documented in this encounterPeoples Hospital06-01-2023 History of Present illness Narrative* Vera Najera MD - 10/22/2022 11:35 AM EDT Images from the original note were not included. NAME: Ariadna Haley CLINIC NO.: [id number] DATE OF SERVICE: October 22, 2022 (Dania) Some elements in this clinic note that are critical to medical decision making have been carefully reviewed and included from a prior clinic note dated: August 27, 2022 (Bob) Referring Provider: Dr. Manuel Ferris Additional Clinicians involved in Ariadna Haley's care: DIAGNOSIS: Multiple symptoms ASSESSMENT: 42 [...] lower lip done 2 days ago at [facility] - awaiting results. B12 helps especially [...] stable there. Updated Visit, August 27, 2022: Ariadna Haley returns for follow-up and B12 injection. She has missed a few B12 injections. Shefollows with multiple doctors including and inking machine tender, calculating machine operator, board hammer operator and PCP. She has been told they [...] but decreasing. Initial Visit, March 04, 2022: Ariadna Haley presents today Hematology and Oncology evaluation. [...] which included preparing to see the patient, qxcn-pv-ikdw patient care, completing clinical documentation, performing a medically appropriate examination, counseling and educating the patient/family/caregiver, ordering medications, tests, or p rocedures, and independently interpreting results (not separately reported). Vera Abhyankar, MD, CPE Hematology and Oncology Services Provided at: [place], [place] CC: Manuel Ferris MD [address] [facility] [address] documented in this encounterPeoples Hospital05-04-2023 Nurse Note* Stacy Gutiérrez Ma - 09/24/2022 10:22 AM EDT Patient Identification confirmed: yes. Injection given and documented on JUL per provider order. Stacy Gutiérrez Ma documented in this encounterPeoples Hospital04-18-2023 Miscellaneous Notes* Telephone Encounter -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 Enthesopathy/Selene's/heel/plantar tenderness: hands random painful/tingling Skin thickening, psoriasis, [...] Date(s) Administered COVID-19 vaccine, age 12+ yr ([employer]) 09/28/2020 10/19/2020 Pneumovax no Flu shot [...] Diagnostic tests reviewed for today's visit: Outside [place] 06/2021 low vitamin D 16, vitamin b12-307;high [...] Due for eye exam. 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 Recommend [...] video & audio (virtual) or phone or [id number] patient care, completing clinical documentation, obtaining and/or [...] had the pleasure of seeing your patient, Ariadna Haley. I have enclosed a copy of [...] body? With SOME difficulty Bend down to crab picker clothing from the floor? 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 Recommend [...] provider/pain clinic Thank you. 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 September, Tachycardia (ICD-10 - R00.0) September, Flushing (ICD-10 - R23.2) [facility] Other 04-28-2022 Evaluation note* Encounter Date Diagnosis Assessment Notes Treatment Notes Treatment Clinical Notes Aug, Elevated sed rate (ICD-10 - R70.0) [facility] Other 04-21-2022 Evaluation note* Encounter Date Diagnosis [...] diagnosis I will defer that to her calculating machine operator. [facility] Other 05-17-2021 Hospital Discharge instructions* Instructions* So [...] be sent through Care Everywhere. * amlodipine (Sudanese) * nitroglycerin (oral/sublingual) (Sudanese) [facility]: 1(415) 827-904005-17-2021 History of Present illness Narrative* So [place] [...] needs to be completed. [facility] Phone: [phone]) 957-288701-08-2015 History of Past illness Narrative* Problem Noted Date Resolved Date Obesity (BMI 30-39.9) 05/31/2014 07/06/2016 documented as of this encounter (statuses as of 10/24/2021) [address]08-2015 History of Past illness Narrative* Problem Noted Date Resolved Date Obesity (BMI 30-39.9) 05/31/2014 07/06/2016 documented as of this encounter (statuses as of 02/25/2022) [address]08-2015 History of Past illness Narrative* Problem Noted Date Resolved Date Obesity (BMI 30-39.9) 05/31/2014 07/06/2016 documented as of this encounter (statuses as of 03/02/2022) [address]08-2015 History of Past illness Narrative* Problem Noted Date Resolved Date Obesity (BMI 30-39.9) 05/31/2014 07/06/2016 documented as of this encounter (statuses as of 03/04/2022) [address]08-2015 History of Past illness Narrative* Problem Noted Date Resolved Date Obesity (BMI 30-39.9) 05/31/2014 07/06/2016 documented as of this encounter (statuses as of 03/05/2022) [address]08-2015 History of Past illness Narrative* Problem Noted Date Resolved Date Obesity (BMI 30-39.9) 05/31/2014 07/06/2016 documented as of this encounter (statuses as of 03/06/2022) [address]08-2015 History of Past illness Narrative* Problem Noted Date Resolved Date Obesity (BMI 30-39.9) 05/31/2014 07/06/2016 documented as of this encounter (statuses as of 03/09/2022) [address]08-2015 History of Past illness Narrative* Problem Noted Date Resolved Date Obesity (BMI 30-39.9) 05/31/2014 07/06/2016 documented as of this encounter (statuses as of 03/10/2022) [address]08-2015 History of Past illness Narrative* Problem Noted Date Resolved Date Obesity (BMI 30-39.9) 05/31/2014 07/06/2016 documented as of this encounter (statuses as of 03/10/2022) [address]08-2015 History of Past illness Narrative* Problem Noted Date Resolved Date Obesity (BMI 30-39.9) 05/31/2014 07/06/2016 documented as of this encounter (statuses as of 03/12/2022) [address]-2015 History of Past illness Narrative* Problem Noted Date Resolved Date Obesity (BMI 30-39.9) 05/31/2014 07/06/2016 documented as of this encounter (statuses as of 03/18/2022) [address]08-2015 History of Past illness Narrative* Problem Noted Date Resolved Date Obesity (BMI 30-39.9) 05/31/2014 07/06/2016 documented as of this encounter (statuses as of 03/22/2022) [address]08-2015 History of Past illness Narrative* Problem Noted Date Resolved Date Obesity (BMI 30-39.9) 05/31/2014 07/06/2016 documented as of this encounter (statuses as of 03/30/2022) [address]2015 History of Past illness Narrative* Problem Noted Date Resolved Date Obesity (BMI 30-39.9) 05/31/2014 07/06/2016 documented as of this encounter (statuses as of 03/30/2022) [address]08-2015 History of Past illness Narrative* Problem Noted Date Resolved Date Obesity (BMI 30-39.9) 05/31/2014 07/06/2016 documented as of this encounter (statuses as of 04/03/2022) [address]08-2015 History of Past illness Narrative* Problem Noted Date Resolved Date Obesity (BMI 30-39.9) 05/31/2014 07/06/2016 documented as of this encounter (statuses as of 04/03/2022) [address]08-2015 History of Past illness Narrative* Problem Noted Date Resolved Date Obesity (BMI 30-39.9) 05/31/2014 07/06/2016 documented as of this encounter (statuses as of 04/22/2022) [address]08-2015 History of Past illness Narrative* Problem Noted Date Resolved Date Obesity (BMI 30-39.9) 05/31/2014 07/06/2016 documented as of this encounter (statuses as of 04/24/2022) [address]08-2015 History of Past illness Narrative* Problem Noted Date Resolved Date Obesity (BMI 30-39.9) 05/31/2014 07/06/2016 documented as of this encounter (statuses as of 05/05/2022) [address]08-2015 History of Past illness Narrative* Problem Noted Date Resolved Date Obesity (BMI 30-39.9) 05/31/2014 07/06/2016 documented as of this encounter (statuses as of 05/05/2022) [address]08-2015 History of Past illness Narrative* Problem Noted Date Resolved Date Obesity (BMI 30-39.9) 05/31/2014 07/06/2016 documented as of this encounter (statuses as of 05/05/2022) [address]08-2015 History of Past illness Narrative* Problem Noted Date Resolved Date Obesity (BMI 30-39.9) 05/31/2014 07/06/2016 documented as of this encounter (statuses as of 05/26/2022) [address]08-2015 History of Past illness Narrative* Problem Noted Date Resolved Date Obesity (BMI 30-39.9) 05/31/2014 07/06/2016 documented as of this encounter (statuses as of 05/27/2022) [address]08-2015 History of Past illness Narrative* Problem Noted Date Resolved Date Obesity (BMI 30-39.9) 05/31/2014 07/06/2016 documented as of this encounter (statuses as of 07/22/2022) [address]08-2015 History of Past illness Narrative* Problem Noted Date Resolved Date Obesity (BMI 30-39.9) 05/31/2014 07/06/2016 documented as of this encounter (statuses as of 07/25/2022) [address]08-2015 History of Past illness Narrative* Problem Noted Date Resolved Date Obesity (BMI 30-39.9) 05/31/2014 07/06/2016 documented as of this encounter (statuses as of 07/27/2022) [address]08-2015 History of Past illness Narrative* Problem Noted Date Resolved Date Obesity (BMI 30-39.9) 05/31/2014 07/06/2016 documented as of this encounter (statuses as of 07/28/2022) [address]08-2015 History of Past illness Narrative* Problem Noted Date Resolved Date Obesity (BMI 30-39.9) 05/31/2014 07/06/2016 documented as of this encounter (statuses as of 08/10/2022) [address]08-2015 History of Past illness Narrative* Problem Noted Date Resolved Date Obesity (BMI 30-39.9) 05/31/2014 07/06/2016 documented as of this encounter (statuses as of 08/18/2022) [address]08-2015 History of Past illness Narrative* Problem Noted Date Resolved Date Obesity (BMI 30-39.9) 05/31/2014 07/06/2016 documented as of this encounter (statuses as of 08/19/2022) [address]08-2015 History of Past illness Narrative* Problem Noted Date Resolved Date Obesity (BMI 30-39.9) 05/31/2014 07/06/2016 documented as of this encounter (statuses as of 08/27/2022) [address]08-2015 History of Past illness Narrative* Problem Noted Date Resolved Date Obesity (BMI 30-39.9) 05/31/2014 07/06/2016 documented as of this encounter (statuses as of 08/29/2022) [address]08-2015 History of Past illness Narrative* Problem Noted Date Resolved Date Obesity (BMI 30-39.9) 05/31/2014 07/06/2016 documented as of this encounter (statuses as of 08/31/2022) [address]08-2015 History of Past illness Narrative* Problem Noted Date Resolved Date Obesity (BMI 30-39.9) 05/31/2014 07/06/2016 documented as of this encounter (statuses as of 09/08/2022) [address]08-2015 History of Past illness Narrative* Problem Noted Date Resolved Date Obesity (BMI 30-39.9) 05/31/2014 07/06/2016 documented as of this encounter (statuses as of 09/08/2022) [address]08-2015 History of Past illness Narrative* Problem Noted Date Resolved Date Obesity (BMI 30-39.9) 05/31/2014 07/06/2016 documented as of this encounter (statuses as of 09/24/2022) [address]08-2015 History of Past illness Narrative* Problem Noted Date Resolved Date Obesity (BMI 30-39.9) 05/31/2014 07/06/2016 documented as of this encounter (statuses as of 10/22/2022) [address]08-2015 History of Past illness Narrative* Problem Noted Date Resolved Date Obesity (BMI 30-39.9) 05/31/2014 07/06/2016 documented as of this encounter (statuses as of 10/25/2022) [address]08-2015 History of Past illness Narrative* Problem Noted Date Resolved Date Obesity (BMI 30-39.9) 05/31/2014 07/06/2016 documented as of this encounter (statuses as of 11/19/2022) [address]08-2015 History of Past illness Narrative* Problem Noted Date Resolved Date Obesity (BMI 30-39.9) 05/31/2014 07/06/2016 documented as of this encounter (statuses as of 11/25/2022) [address]08-2015 History of Past illness Narrative* Problem Noted Date Diagnosed Date Resolved Date Obesity (BMI 30-39.9) 05/31/20142016 documented as of this encounter (statuses as of 12/08/2022) [address]08-2015 History of Past illness Narrative* Problem Noted Date Diagnosed Date Resolved Date Obesity (BMI 30-39.9) 05/31/20142016 documented as of this encounter (statuses as of 12/18/2022) [address]08-2015 History of Past illness Narrative* Problem Noted Date Diagnosed Date Resolved Date Obesity (BMI 30-39.9) 05/31/20142016 documented as of this encounter (statuses as of 12/18/2022) [address]08-2015 History of Past illness Narrative* Problem Noted Date Diagnosed Date Resolved Date Obesity (BMI 30-39.9) 05/31/20142016 documented as of this encounter (statuses as of 12/21/2022) [address]08-2015 History of Past illness Narrative* Problem Noted Date Diagnosed Date Resolved Date Obesity (BMI 30-39.9) 05/31/20142016 documented as of this encounter (statuses as of 12/22/2022) [address]08-2015 History of Past illness Narrative* Problem Noted Date Diagnosed Date Resolved Date Obesity (BMI 30-39.9) 05/31/20142016 documented as of this encounter (statuses as of 01/02/2023) [address]08-2015 History of Past illness Narrative* Problem Noted Date Diagnosed Date Resolved Date Obesity (BMI 30-39.9) 05/31/20142016 documented as of this encounter (statuses as of 01/13/2023) [address]08-2015 History of Past illness Narrative* Problem Noted Date Diagnosed Date Resolved Date Obesity (BMI 30-39.9) 05/31/20142016 documented as of this encounter (statuses as of 01/22/2023) [address]08-2015 History of Past illness Narrative* Problem Noted Date Diagnosed Date Resolved Date Obesity (BMI 30-39.9) 05/31/20142016 documented as of this encounter (statuses as of 01/26/2023) [address]08-2015 History of Past illness Narrative* Problem Noted Date Diagnosed Date Resolved Date Obesity (BMI 30-39.9) 05/31/20142016 documented as of this encounter (statuses as of 02/04/2023) [address]08-2015 History of Past illness Narrative* Problem Noted Date Diagnosed Date Resolved Date Obesity (BMI 30-39.9) 05/31/20142016 documented as of this encounter (statuses as of 02/04/2023) [place] [address]08-2015 History of Past illness Narrative* Problem Noted Date Diagnosed Date Resolved Date Obesity (BMI 30-39.9) 05/31/20142016 documented as of this encounter (statuses as of 02/07/2023) [address]08-2015 History of Past illness Narrative* Problem Noted Date Diagnosed Date Resolved Date Obesity (BMI 30-39.9) 05/31/20142016 documented as of this encounter (statuses as of 02/08/2023) [address]08-2015 History of Past illness Narrative* Problem Noted Date Diagnosed Date Resolved Date Obesity (BMI 30-39.9) 05/31/20142016 documented as of this encounter (statuses as of 02/16/2023) [address]08-2015 History of Past illness Narrative* Problem Noted Date Diagnosed Date Resolved Date Obesity (BMI 30-39.9) 05/31/20142016 documented as of this encounter (statuses as of 02/19/2023) [address]08-2015 History of Past illness Narrative* Problem Noted Date Diagnosed Date Resolved Date Obesity (BMI 30-39.9) 05/31/20142016 documented as of this encounter (statuses as of 02/21/2023) [facility]* Problem Noted Date Diagnosed Date Resolved Date Obesity (BMI 30-39.9) 05/31/20142016 documented as of this encounter (statuses as of 03/02/2023) [facility] Diagnosis Other systemic lupus erythematosus with [...] and myositis, unspecified [facility] Diagnosis Swelling of lymph nodes- Primary Enlargement of lymph nodes Other systemic lupus erythematosus with other organ involvement (HCC) On prednisone therapy Hair loss Alopecia, unspecified Bilateral sacroiliitis (HCC) Long-term use of Plaquenil 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-term (current) use of other medications [facility] Diagnosis Vitamin B12 deficiency- Primary Other B-complex deficiencies Vitamin D deficiency Unspecified vitamin D deficiency Elevated sed rate Elevated sedimentation rate Elevated C-reactive protein (CRP) [facility] Diagnosis 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 Other vitamin B12 deficiency anemia Somnolence, daytime Hypersomnia, unspecified Snoring Other dyspnea and respiratory abnormality Chronic fatigue and malaise Chronic fatigue syndrome Obesity, unspecified classification, unspecified obesity type, unspecified whether serious comorbidity present [facility]* Diagnosis Obesity, Class II, BMI 35-39.9- [...] nonspecific immunological findings [facility]* Diagnosis 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 Other vitamin B12 deficiency anemia High total serum IgM [facility] Diagnosis Raised level of immunoglobulins- Primary Other and unspecified nonspecific immunological findings Wound healing, delayed Open wound(s) (multiple) of unspecified site(s), complicated Current smoker Tobacco use disorder [facility]* Diagnosis Family history of genetic disease- Primary Family history of other condition [facility] Diagnosis High total serum IgM- Primary Elevated sed rate Elevated sedimentation rate Somnolence, daytime Hypersomnia, unspecified JOSE RAFAEL (obstructive sleep apnea) Obstructive sleep apnea (adult) (pediatric) [facility]* Diagnosis 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 Other vitamin B12 deficiency anemia Elevated sed rate Elevated sedimentation rate [facility] Diagnosis 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 Other vitamin B12 deficiency anemia Elevated sed rate Elevated sedimentation rate High total serum IgM Chronic fatigue and malaise Chronic fatigue syndrome [facility] Diagnosis JOSE RAFAEL (obstructive sleep apnea)- Primary Obstructive sleep apnea (adult) (pediatric) [facility]* Diagnosis Other systemic lupus erythematosus with other organ involvement (HCC)- Primary Family history of Crohn's disease Family history of other digestive disorders Fibromyalgia Mylagia and myositis, unspecified [facility] Diagnosis Other systemic lupus erythematosus with other organ involvement (HCC)- Primary Elevated LFTs Other abnormal blood chemistry Anemia of chronic disease Anemia of other chronic disease 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-term (current) use of other medications [facility] Diagnosis Megaloblastic anemia due to vitamin [...] apnea (adult) (pediatric) [facility]* Diagnosis Vitamin D deficiency Unspecified vitamin D deficiency [facility]* Diagnosis Obesity, Class III, BMI >= 40- Primary Morbid obesity Polypharmacy 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-term (current) use of other medications Pre-diabetes Other abnormal glucose [facility]* Diagnosis 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 Other vitamin B12 deficiency anemia Elevated sed rate Elevated sedimentation rate [facility]* Diagnosis 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 Other vitamin B12 deficiency anemia Elevated sed rate Elevated sedimentation rate [facility] Diagnosis 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 Other vitamin B12 deficiency anemia Elevated sed rate Elevated sedimentation rate High total serum IgM Chronic fatigue and malaise Chronic fatigue syndrome Obstructive sleep apnea syndrome Obstructive sleep apnea (adult) (pediatric) [facility] Diagnosis 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 Other vitamin B12 deficiency anemia Elevated sed rate Elevated sedimentation rate [facility] Diagnosis Other systemic lupus erythematosus with other organ involvement (HCC) 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 custodial 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-term (current) use of other medications [facility] Diagnosis 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 Other vitamin B12 deficiency anemia Chronic fatigue and malaise Chronic fatigue syndrome [facility] Diagnosis High total serum IgM- Primary Low serum IgG for age Current smoker Tobacco use disorder [facility]* Diagnosis Obesity, Class II, BMI 35-39.9 Obesity, unspecified Prediabetes Other abnormal glucose [facility]* Diagnosis 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 Other vitamin B12 deficiency anemia Elevated sed rate Elevated sedimentation rate [facility] Diagnosis Other systemic lupus erythematosus with [...] Bilateral wrist pain 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, forearm USP 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 [...] with other organ involvement (HCC) 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 custodial 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-term [...] Chronic pain syndrome documented in this encounter [facility] note* Diagnosis Systemic lupus erythematosus, unspecified SLE type, unspecified organ involvement status ([facility])- Primary documented in this encounter [facility] note* Diagnosis 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 Other vitamin B12 deficiency anemia Elevated sed rate Elevated sedimentation rate documented in this encounter [facility] note* Diagnosis 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 Other vitamin B12 deficiency anemia Elevated sed rate Elevated sedimentation rate documented in this encounter [facility] note* Diagnosis Obesity, Class III, BMI >= 40- Primary Morbid obesity FUO (fever of unknown origin) Fever, unspecified Other chronic pain documented in this encounter [facility] note* Diagnosis Obesity, Class III, BMI >= 40 Morbid obesity documented in this encounter [facility] note* Diagnosis Obesity, Class III, BMI >= 40- Primary Morbid obesity Other chronic pain documented in this encounter [facility] note* Diagnosis Irregular heart rate- Primary Essential hypertension Unspecified essential hypertension Autonomic dysfunction Obstructive sleep apnea syndrome Obstructive sleep apnea (adult) (pediatric) Primary hypertension Unspecified essential hypertension documented in this encounter [facility] Work Phone: Evaluation note* Diagnosis Autoimmune disease (CMS/HCC)- Primary Autoimmune disease, not elsewhere classified Autonomic dysfunction Lumbosacral radiculopathy Thoracic or lumbosacral neuritis or radiculitis, unspecified Bilateral leg weakness Muscle weakness (generalized) [facility] Diagnosis Shortness of breath- Primary Paroxysmal supraventricular tachycardia PAC (premature atrial contraction) Supraventricular premature beats Current smoker Systemic lupus erythematosus, unspecified SLE type, unspecified organ involvement status (CMS/HCC) Palpitations Obstructive sleep apnea syndrome Obstructive sleep apnea (adult) (pediatric) Morbid obesity (CMS/HCC) Morbid obesity Bilateral lower extremity edema documented in this encounter [facility] Work Phone: Evaluation note* Diagnosis 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 Other vitamin B12 deficiency anemia Elevated sed rate Elevated sedimentation rate documented in this encounter [facility] note* Diagnosis Systemic lupus erythematosus with other organ involvement (HCC)- Primary [facility] Diagnosis Systemic lupus erythematosus with other organ involvement (HCC)- Primary [facility] Diagnosis 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 Other vitamin B12 deficiency anemia Elevated sed rate Elevated sedimentation rate documented in this [facility] Diagnosis Other systemic lupus erythematosus with other organ involvement (HCC)- Primary Vitamin D deficiency Unspecified vitamin D deficiency Elevated LFTs Other abnormal blood chemistry Anemia of chronic disease Anemia of other chronic disease Elevated sed rate Elevated sedimentation rate Elevated C-reactive protein (CRP) [facility] Diagnosis Megaloblastic anemia due to vitamin B12 deficiency- Primary Other vitamin B12 deficiency anemia Obstructive sleep apnea syndrome Obstructive sleep apnea (adult) (pediatric) Chronic fatigue and malaise Chronic fatigue syndrome High total serum IgM JOSE RAFAEL (obstructive sleep apnea) Obstructive sleep apnea (adult) (pediatric) Somnolence, daytime Hypersomnia, unspecified [facility] Diagnosis Elevated sed rate- Primary Elevated sedimentation rate Megaloblastic anemia due to vitamin B12 deficiency Other vitamin B12 deficiency anemia [facility] Diagnosis Other systemic lupus erythematosus [...] other medications Long-term use of high-risk medication USP 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-term (current) use of steroids 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 Bilateral hand pain Pain in limb History of vitamin D deficiency Personal history of nutritional deficiency [facility] Diagnosis Elevated sed rate- Primary Elevated sedimentation rate Megaloblastic anemia due to vitamin B12 deficiency Other vitamin B12 deficiency anemia [facility] Diagnosis Other systemic lupus erythematosus with other organ involvement (HCC) 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-term (current) use of other medications [facility] Diagnosis Systemic lupus erythematosus with other organ involvement (HCC)- Primary [facility] Diagnosis Vitamin B12 deficiency- Primary Other B-complex deficiencies [facility]* Diagnosis Elevated sed rate- Primary Elevated sedimentation rate Megaloblastic anemia due to vitamin B12 deficiency Other vitamin B12 deficiency anemia [facility] Diagnosis Elevated sed rate- Primary Elevated sedimentation rate Megaloblastic anemia due to vitamin B12 deficiency Other vitamin B12 deficiency anemia [facility] Diagnosis Megaloblastic anemia due to vitamin B12 deficiency- Primary Other vitamin B12 deficiency anemia Elevated sed rate Elevated sedimentation rate Obstructive sleep apnea syndrome Obstructive sleep apnea (adult) (pediatric) [facility] Diagnosis Elevated LFTs- Primary Other abnormal blood chemistry Elevated C-reactive protein (CRP) Elevated sed rate Elevated sedimentation rate Vitamin D deficiency Unspecified vitamin D deficiency Screening-pulmonary TB Screening examination for pulmonary tuberculosis [facility] Diagnosis Other systemic lupus erythematosus with other organ involvement (HCC) [facility] Diagnosis Systemic lupus erythematosus with other organ involvement (HCC)- Primary [facility]* Diagnosis Elevated sed rate- Primary Elevated sedimentation rate Megaloblastic anemia due to vitamin B12 deficiency Other vitamin B12 deficiency anemia [facility]* Diagnosis Pseudomonas infection- Primary Pseudomonas infection in conditions classified elsewhere and of unspecified site Other systemic lupus erythematosus with other organ involvement (HCC) On prednisone therapy Long-term use of Plaquenil 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-term (current) use of other medications [facility]* Diagnosis Onset Date Resolution Status Lupus acute Recurrent Clostridioides difficile diarrhea acute Nipple discharge in female a cute Recurrent Clostridioides difficile diarrhea acute Lumbosacral spondylosis acut e Other chronic pain acute Sacroiliitis acute [facility] Work Phone: Evaluation note* Diagnosis JOSE RAFAEL (obstructive sleep apnea)- Primary Obstructive sleep apnea (adult) (pediatric) Somnolence, daytime Hypersomnia, unspecified [facility]* Diagnosis Systemic lupus erythematosus with other organ involvement (HCC)- Primary [facility] Diagnosis Systemic lupus erythematosus with other organ involvement (HCC)- Primary [facility]* Diagnosis Onset Date Resolution Status Nipple discharge in female a cute Recurrent Clostridioides difficile diarrhea acute Lumbosacral spondylosis acut e Other chronic pain acute Sacroiliitis acute [facility] Work Phone: Evaluation note* Diagnosis Elevated sed rate- Primary Elevated sedimentation rate Megaloblastic anemia due to vitamin B12 deficiency Other vitamin B12 deficiency anemia [facility]* Diagnosis Onset Date Resolution Status Nipple discharge in female a cute Recurrent Clostridioides difficile diarrhea acute Lumbosacral spondylosis acut e Other chronic pain acute Sacroiliitis acute Lumbosacral spondylosis acut e Other chronic pain acute Sacroiliitis acute [facility] Work Phone: Evaluation note* Diagnosis Lumbosacral radiculopathy at L5 Degenerative disc disease, lumbar Cervical radiculopathy at C5 [facility] Diagnosis Onset Date Resolution Status Lumbosacral spondylosis acut e Other chronic pain acute Sacroiliitis acute Lumbosacral spondylosis acut e Other chronic pain acute Sacroiliitis acute [facility] Work Phone: Evaluation note* Diagnosis Other systemic lupus erythematosus with other organ involvement (HCC) [facility]* Diagnosis Other systemic lupus erythematosus with [...] both feet 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-term (current) use of steroids Bilateral hand pain Pain in limb Systemic lupus erythematosus, unspecified SLE type, unspecified organ involvement status (HCC) Vitamin B12 deficiency Other B-complex deficiencies Discoid lupus erythematosus Lupus erythematosus [facility] Diagnosis Nipple discharge Other sign and symptom in breast documented in this encounter [facility]* Diagnosis Elevated sed rate- Primary Elevated sedimentation rate Megaloblastic anemia due to vitamin B12 deficiency Other vitamin B12 deficiency anemia [facility] Diagnosis Abnormal uterine bleeding (AUB) Menorrhagia with regular cycle documented in this encounter [facility] note* Diagnosis Megaloblastic anemia due to vitamin B12 deficiency- Primary Other vitamin B12 deficiency anemia High total serum IgM JOSE RAFAEL (obstructive sleep apnea) Obstructive sleep apnea (adult) (pediatric) Elevated sed rate Elevated sedimentation rate Hypogammaglobulinemia (HCC) Hypogammaglobulinaemia, unspecified Frequent infections [facility] Diagnosis Oral thrush- Primary Candidiasis of mouth documented in this encounter [facility] note* Diagnosis Systemic lupus erythematosus (CMS-HCC)- Primary Cold extremities Pain of lower extremity, unspecified laterality Rheumatoid arthritis, involving unspecified site, unspecified whether rheumatoid factor present ([facility]-HCC) Current smoker 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 [facility]* Diagnosis Oral thrush- Primary Candidiasis of mouth documented in this encounter [facility]* Diagnosis Systemic lupus erythematosus with other organ involvement (HCC)- Primary [facility] Diagnosis LPRD (laryngopharyngeal reflux disease)- Primary Acute laryngitis, without mention of obstruction Acute otalgia, right [facility] Diagnosis Systemic lupus erythematosus (CMS-HCC)- Primary Cold extremities Pain of lower extremity, unspecified laterality Rheumatoid arthritis, involving unspecified site, unspecified whether rheumatoid factor present (CMS-HCC) Current smoker 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 Peripheral vascular disease, unspecified (CMS-HCC)- Primary Peripheral vascular disease, unspecified Cold extremities Systemic lupus erythematosus (CMS-HCC) [facility]* Diagnosis Autoimmune disease (CMS/HCC) Autoimmune disease, not elsewhere classified Fibromyalgia Unspecified myalgia and myositis Numbness Disturbance of skin sensation documented in this encounter [facility]* Diagnosis Lumbosacral radiculopathy at L5- Primary Degenerative disc disease, lumbar Cervical radiculopathy at C5 [facility] Diagnosis Degenerative disc disease, lumbar- Primary Lumbosacral radiculopathy at L5 [facility]* Diagnosis Frequent infections- Primary Megaloblastic anemia due to vitamin B12 deficiency Other vitamin B12 deficiency anemia Elevated sed rate Elevated sedimentation rate Hypogammaglobulinemia (HCC) Hypogammaglobulinaemia, unspecified Bilateral leg weakness Other musculoskeletal symptoms referable to limbs Discoid lupus erythematosus Lupus erythematosus documented in this encounter [facility] general Narrative - Reported* Type Description Date Medical History hyperlipidemia Medical History insulin resistance Medical History CMV Surgical History cyst removal pilonidal Surgical History D&C Hospitalization History Offerial Other Hospital Discharge instructionsAmbulatory Orders* Referral to Gastroenterology Location: [facility] Work Phone: InstructionsNot on filedocumented in this encounter [facility] ([facility]ative[facility] Diagnostic Procedure Only (Routine) - Pending Review Specialty Diagnoses / Procedures Referred By Nahid tran Referred To Contact XR IMAGING Diagnoses Steroid-induced osteoporosis Procedures DXA-FOREARM SKELETON DXA BONE DENSITY STUDY 1/>SITES APPENDICLR Lynne Perera MD [address] [place] [address] [place] [address] Referral ID Status Reason Start Date Expiration Date Visits Requested Visits Authorized [id number] Pending Review Auto-Generat ed Referral 02/04/2023 03/05/2024 1 1 [facility] for referral (narrative)* Consultation (Routine) - Authorized Specialty Diagnoses / Procedures Referred By Nahid tran Referred To Contact Cardiology Diagnoses Irregular heart rate Essential hypertension Autonomic dysfunction Obstructive sleep apnea syndrome Primary hypertension Procedures Follow Up In Cardiology Michelle Britton, NURSE PRN-HYPERION ESSBASE DEVELOPER [address] [facility] [address] [place] [address] Aurora Patel MD [address] [facility] [address] [place] [address] Referral ID Status Reason Start Date Expiration Date V isits Requested Visits Authorized [id number] Authorized 06/09/2023 06/08/2024 1 1 * Cardiovascular (Routine) - Pending Review Specialty Diagnoses / Procedures Referred By Contac t Referred To Contact Cardiology Diagnoses Irregular heart rate 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 Michelle Britton APRN-CNP [address] [facility] [address] [place] [address] Referral ID Status Reason Start Date Expiration Date V isits Requested Visits Authorized Pending Review 06/09/2023 06/08/2024 1 1 * CV Imaging (Routine) - Pending Review Specialty Diagnoses / Procedures Referred By Contac t Referred To Contact Cardiology Diagnoses Irregular heart rate Obstructive sleep apnea syndrome Procedures Transthoracic Echo (TTE) Complete OR ECHO TTHRC R-T 2D W/WOM-MODE COMPL SPEC&COLR D Michelle Britton APRN-CNP [address] [facility] [address] [place] [address] Referral ID Status Reason Start Date Expiration Date Visits Requested Visits Authorized Pending Review Perform Procedure 06/09/2023 06/08/2024 1 1 * Cardiovascular (Routine) - Authorized Specialty Diagnoses / Procedures Referred By Contac t Referred To Contact Diagnoses Irregular heart rate Procedures ECG 12 Lead Michelle Britton APRN-CNP [address] [facility] [address] [place] [address] Referral ID Status Reason Start Date Expiration Date V isits Requested Visits Authorized [id number] Authorized 06/09/2023 06/08/2024 1 1 [facility] Work Phone: Reason for referral (narrative)* Consultation (Routine) - Pending Review Specialty Diagnoses / Procedures Referred By Contac t Referred To Contact Pain Medicine Diagnoses Lumbosacral radiculopathy at L5 Degenerative disc disease, lumbar Procedures OR OFFICE/OUTPATIENT NEW HIGH MDM 60 MINUTES Kade Richardson MD [address] [address] Adolfo Kang MD [address] [address] Referral ID Status Reason Start Date Expiration Date Visits Requested Visits Authorized [id number] Pending Review Specialty Services Required 01/20/2024 07/18/2024 1 1 [facility] Summary Purpose Family History Relationship Condition Age at Onset Recorded Date/T michelle father Unknown Malignant neoplasm Unknown Advance Directives Documents on File Type Date Recorded Patient Ferry Engineer Expl anation ACP-Advance Directive ACP-Power of Apple 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 Supervisor Latest Code Status on File Code Status Date Activated Date Inactivated Comments Full Code 10/07/2020 8:32 AM Documents on File Type Date Recorded Patient Ferry Engineer Expl anation Advance Directive(s) 09/13/2015 8:36 AM Advance Directive Response Recorded Date/ Time Advance Directives No September 17, 2 019 2:40pm Reason for Referral Specialty Diagnoses / Procedures Referred By Contac t Referred To Contact Diagnoses Paroxysmal supraventricular tachycardia PAC (premature atrial contraction) Procedures ECG 12 Lead Lois Holm MD [address] [place] [address] [address], [address] [address] Referral ID Status Reason Start Date Expiration Date V isits Requested Visits Authorized [id number] Authorized 07/13/2023 07/12/2024 1 1 Specialty Diagnoses / Procedures Referred By Contac t Referred To Contact Cardiology Diagnoses Shortness of breath Paroxysmal supraventricular tachycardia PAC (premature atrial contraction) Procedures Follow Up In Cardiology Lois Holm MD 3 [facility] 2, [address] [address] Lois Holm MD 703 [facility] 2, [address] [address] Referral ID Status Reason Start Date Expiration Date V isits Requested Visits Authorized [id number] Authorized 07/13/2023 07/12/2024 1 1 Specialty Diagnoses / Procedures Referred By Contac t Referred To Contact Diagnoses Obesity, Class III, BMI 40-49.9 (morbid obesity) (HCC) Pre-diabetes Christie Phan MD [address] [place], [place] [id number] Referral ID Status Reason Start Date Expiration Date Visits Re quested Visits Authorized [id number] Closed 1 1 Specialty Diagnoses / Procedures Referred By Contac t Referred To Contact Diagnoses Wound healing, delayed Procedures CONSULT TO MEDICAL GENETICS - GENERAL OFFICE/OUTPATIENT [facility] 60-74 MINUTES MEDICAL GENETICS COUNSELING EACH 30 MINUTES Misty Nelson MD [address] [place] [address] [facility] [place] [address] [place] [address] Referral ID Status Reason Start Date Expiration Date Visits Requested Visits Authorized [id number] Authorized PCP Requested Referral Auto-Generate d Referral 2 03/10/2023 1 1 Specialty Diagnoses / Procedures Referred By Contac t Referred To Contact Neurology Diagnoses POTS (postural orthostatic tachycardia syndrome) Procedures CONSULT TO NEUROLOGY OFFICE/OUTPATIENT [facility] 60-74 MINUTES Christie Phan MD [address] [place], [place] [id number] Referral ID Status Reason Start Date Expiration Date Visits Requested Visits Authorized [id number] Authorized PCP Requested Referral 2 03/12/2023 1 1 Specialty Diagnoses / Procedures Referred By Contac t Referred To Contact Immunology Diagnoses Raised level of immunoglobulins Procedures CONSULT TO IMMUNOLOGY OFFICE/OUTPATIENT [facility] 60-74 MINUTES Christie Phan MD [address] [place], [place] [id number] Referral ID Status Reason Start Date Expiration Date V isits Requested Visits Authorized [id number] Closed PCP Requested Referral 03/09/2022 03/09/2023 1 1 Specialty Diagnoses / Procedures Referred By Contac t Referred To Contact [facility] Diagnoses Somnolence, daytime Snoring Procedures HOME SLEEP APNEA TEST (HSAT) SLEEP STD AIRFLOW HRT RATE&O2 SAT EFFORT UNATT Christie Phan MD [address] [place] [address] Neurological [place] [address] [place] [address] Referral ID Status Reason Start Date Expiration Date Visits Requested Visits Authorized [id number] Authorized Auto-Generat ed Referral 2 03/09/2023 1 1 Specialty Diagnoses / Procedures Referred By Nahid t Referred To Contact Diagnoses Somnolence, daytime Chronic fatigue and malaise Obesity, unspecified classification, unspecified obesity type, unspecified whether serious comorbidity present Procedures CONSULT TO LIFESTYLE MEDICINE MD OFFICE/OUTPATIENT [facility] 60-74 MINUTES Vera Najera MD [address] [place] [address] [place] [address] Referral ID Status Reason Start Date Expiration Date V isits Requested Visits Authorized [id number] Closed PCP Requested Referral 03/04/2022 03/04/2023 1 1 Specialty Diagnoses / Procedures Referred By Nahid tran Referred To Contact Diagnoses Somnolence, daytime Snoring Procedures CONSULT TO SLEEP MEDICINE - ADULT OFFICE/OUTPATIENT [facility] 60-74 MINUTES Vera Najera MD [address] [place] [address] [place] [address] Referral ID Status Reason Start Date Expiration Date Visits Requested Visits Authorized [id number] Authorized PCP Requested Referral 2 03/04/2023 1 [...] section and content) DATE CREATED AUTHOR 09/20/2018 Lety Gutierrez [facility] DATE CREATED AUTHOR AUTHOR'S ORGANIZ ATION 12/10/2018 [facility] DATE CREATED AUTHOR AUTHOR'S ORGANIZ ATION 01/13/2019 [facility] DATE CREATED AUTHOR AUTHOR'S ORGANIZ ATION 06/28/2021 [facility] DATE CREATED AUTHOR AUTHOR'S ORGANIZ ATION 10/01/2022 [facility] DATE CREATED AUTHOR AUTHOR'S ORGANIZ ATION 01/29/2024 [facility] DATE CREATED AUTHOR AUTHOR'S ORGANIZ ATION 02/22/2024 [facility] DATE CREATED AUTHOR AUTHOR'S ORGANIZ ATION 02/23/2024 [facility] DATE CREATED AUTHOR AUTHOR'S ORGANIZ ATION 03/10/2024 [facility] DATE CREATED AUTHOR AUTHOR'S ORGANIZ ATION 04/12/2024 [facility] DATE CREATED AUTHOR AUTHOR'S ORGANIZ ATION 05/24/2024 [facility] Reason for Visit (unrecogniz ed section and content) Status Reason Specialty Diagnoses / Procedures Referre d By Contact Referred To Contact [facility] Reason Comments Pain ongoing generalized pain. Reason [...] MD OFFICE/OUTPATIENT NEW HIGH MDM 60-74 MINUTES Vera Najera MD [address] [place] [address] [place] [address] Referral ID Status Reason Start Date Expiration Date V isits Requested Visits Authorized [id number] Closed PCP Requested Referral 03/04/2022 03/04/2023 1 1 Reason Comments High Total serum IgM Anemia Reason Comments Consult Specialty Diagnoses / Procedures Referred By Contac t Referred To Contact Immunology Diagnoses Raised level of immunoglobulins Procedures CONSULT TO IMMUNOLOGY OFFICE/OUTPATIENT NEW HIGH MDM 60-74 MINUTES Christie Phan MD [address] [address] Referral ID Status Reason Start Date Expiration Date V isits Requested Visits Authorized [id number] Closed PCP Requested Referral 03/09/2022 03/09/2023 1 1 Reason Comments Pneumovax Reason Comments Refill Request Reason Comments 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 Set Painter - Other Reason Comments Future Appointment Scheduling [...] rate Procedures ECG 12 Lead Michelle Britton, NURSE PRN-HYPERION ESSBASE DEVELOPER [address] [facility] [address] [place] [address] Referral ID Status Reason Start Date Expiration Date V isits Requested Visits Authorized [id number] Authorized 06/09/2023 06/08/2024 1 1 Reason Comments New Patient Visit Leg Swelling, test r esults from [place] Specialty Diagnoses / Procedures Referred By Contac t Referred To Contact Diagnoses Paroxysmal supraventricular tachycardia PAC (premature atrial contraction) Procedures ECG 12 Lead Lois Holm MD 7[address] [facility] 2, [address] [place] [address] Referral ID Status Reason Start Date Expiration Date V isits Requested Visits Authorized [id number] Authorized 07/13/2023 07/12/2024 1 1 Reason Onset [...] Reason Comments Orders PAP RX. Reason Comments Set Painter - Other Eds scheduling Reason Comments Med [...] of lower extremity, unspecified laterality Gay Enciso, NURSE PRN-HYPERION ESSBASE DEVELOPER [address] [place] [address] Phone: tel:[phone] fax: Judy Arciniega MD [address] [place] [address] Phone: tel:[phone] fax: Referral ID Status Reason Start Date Expiration Date Visits Requested Visits Authorized [id number] Pending Review Specialty Services Required 03/15/2025 1 1 Reason Onset Date Comments SPP Inflammatory Conditions - Medication Refill 04/11/2024 [facility] Reason Comments Ear Problem Possible thrush, ear pain Reason Comments Med Refill Reason Onset Date Comments SPP Inflammatory Conditions - Medication Refill 05/12/2024 [facility] Specialty Diagnoses / Procedures Referred By Nahid Referred To Contact Diagnoses Frequent infections Hypogammaglobulinemia (HCC) Bilateral leg weakness Discoid lupus erythematosus Procedures GAMMAGARD LIQUID INJECTION Vera Najera MD [address] [place] [address] [place] [address] Dre Treat Gabbi [address] [place] [address] Referral ID Status Reason Start Date Expiration Date V isits Requested Visits Authorized [id number] Authorized 04/03/2024 10/01/2024 7 7 Ordered Prescriptions (unrec ognized section and content) [...] or prosecute any alcohol or drug abuse patient.[facility] the event this information is protected by the Federal Confidentiality of Alcohol and Drug Abuse Patient Records regulations: The Federal rules restrict any use of the information to criminally investigate or prosecute any alcohol or drug abuse patient.[facility] the event this information is protected by the Federal Confidentiality of Alcohol and Drug Abuse Patient Records regulations: The Federal rules restrict any use of the information to criminally investigate or prosecute any alcohol or drug abuse patient.[facility] the event this information is protected by the Federal Confidentiality of Alcohol and Drug Abuse Patient Records regulations: The Federal rules restrict any use of the information to criminally investigate or prosecute any alcohol or drug abuse patient.[facility] the event this information is protected by the Federal Confidentiality of Alcohol and Drug Abuse Patient Records regulations: The Federal rules restrict any use of the information to criminally investigate or prosecute any alcohol or drug abuse patient.[facility] HospitalIn the event this information is protected by the Federal Confidentiality of Alcohol and Drug Abuse Patient Records regulations: The Federal rules restrict any use of the information to criminally investigate or prosecute any alcohol or drug abuse patient.[facility] HospitalIn the event this information is protected by the Federal Confidentiality of Alcohol and Drug Abuse Patient Records regulations: The Federal rules restrict any use of the information to criminally investigate or prosecute any alcohol or drug abuse patient.[facility] HospitalIn the event this information is protected by the Federal Confidentiality of Alcohol and Drug Abuse Patient Records regulations: The Federal rules restrict any use of the information to criminally investigate or prosecute any alcohol or drug abuse patient.[facility] HospitalIn the event this information is protected by the Federal Confidentiality of Alcohol and Drug Abuse Patient Records regulations: The Federal rules restrict any use of the information to criminally investigate or prosecute any alcohol or drug abuse patient.[facility] HospitalIn the event this information is protected by the Federal Confidentiality of Alcohol and Drug Abuse Patient Records regulations: The Federal rules restrict any use of the information to criminally investigate or prosecute any alcohol or drug abuse patient.[facility] HospitalIn the event this information is protected by the Federal Confidentiality of Alcohol and Drug Abuse Patient Records regulations: The Federal rules restrict any use of the information to criminally investigate or prosecute any alcohol or drug abuse patient.[facility] HospitalIn the event this information is protected by the Federal Confidentiality of Alcohol and Drug Abuse Patient Records regulations: The Federal rules restrict any use of the information to criminally investigate or prosecute any alcohol or drug abuse patient.[facility] HospitalIn the event this information is protected by the Federal Confidentiality of Alcohol and Drug Abuse Patient Records regulations: The Federal rules restrict any use of the information to criminally investigate or prosecute any alcohol or drug abuse patient.[facility] HospitalIn the event this information is protected by the Federal Confidentiality of Alcohol and Drug Abuse Patient Records regulations: The Federal rules restrict any use of the information to criminally investigate or prosecute any alcohol or drug abuse patient.[facility] HospitalIn the event this information is protected by the Federal Confidentiality of Alcohol and Drug Abuse Patient Records regulations: The Federal rules restrict any use of the information to criminally investigate or prosecute any alcohol or drug abuse patient.[facility] HospitalIn the event this information is protected by the Federal Confidentiality of Alcohol and Drug Abuse Patient Records regulations: The Federal rules restrict any use of the information to criminally investigate or prosecute any alcohol or drug abuse patient.[facility] HospitalIn the event this information is protected by the Federal Confidentiality of Alcohol and Drug Abuse Patient Records regulations: The Federal rules restrict any use of the information to criminally investigate or prosecute any alcohol or drug abuse patient.[facility] HospitalIn the event this information is protected by the Federal Confidentiality of Alcohol and Drug Abuse Patient Records regulations: The Federal rules restrict any use of the information to criminally investigate or prosecute any alcohol or drug abuse patient.[facility] HospitalIn the event this information is protected by the Federal Confidentiality of Alcohol and Drug Abuse Patient Records regulations: The Federal rules restrict any use of the information to criminally investigate or prosecute any alcohol or drug abuse patient.[facility] HospitalIn the event this information is protected by the Federal Confidentiality of Alcohol and Drug Abuse Patient Records regulations: The Federal rules restrict any use of the information to criminally investigate or prosecute any alcohol or drug abuse patient.[facility] HospitalIn the event this information is protected by the Federal Confidentiality of Alcohol and Drug Abuse Patient Records regulations: The Federal rules restrict any use of the information to criminally investigate or prosecute any alcohol or drug abuse patient.[facility] HospitalIn the event this information is protected by the Federal Confidentiality of Alcohol and Drug Abuse Patient Records regulations: The Federal rules restrict any use of the information to criminally investigate or prosecute any alcohol or drug abuse patient.[facility] HospitalIn the event this information is protected by the Federal Confidentiality of Alcohol and Drug Abuse Patient Records regulations: The Federal rules restrict any use of the information to criminally investigate or prosecute any alcohol or drug abuse patient.[facility] HospitalIn the event this information is protected by the Federal Confidentiality of Alcohol and Drug Abuse Patient Records regulations: The Federal rules restrict any use of the information to criminally investigate or prosecute any alcohol or drug abuse patient.[facility] HospitalIn the event this information is protected by the Federal Confidentiality of Alcohol and Drug Abuse Patient Records regulations: The Federal rules restrict any use of the information to criminally investigate or prosecute any alcohol or drug abuse patient.[facility] HospitalIn the event this information is protected by the Federal Confidentiality of Alcohol and Drug Abuse Patient Records regulations: The Federal rules restrict any use of the information to criminally investigate or prosecute any alcohol or drug abuse patient.[facility] HospitalIn the event this information is protected by the Federal Confidentiality of Alcohol and Drug Abuse Patient Records regulations: The Federal rules restrict any use of the information to criminally investigate or prosecute any alcohol or drug abuse patient.[facility] HospitalIn the event this information is protected by the Federal Confidentiality of Alcohol and Drug Abuse Patient Records regulations: The Federal rules restrict any use of the information to criminally investigate or prosecute any alcohol or drug abuse patient.[facility] HospitalIn the event this information is protected by the Federal Confidentiality of Alcohol and Drug Abuse Patient Records regulations: The Federal rules restrict any use of the information to criminally investigate or prosecute any alcohol or drug abuse patient.[facility] HospitalIn the event this information is protected by the Federal Confidentiality of Alcohol and Drug Abuse Patient Records regulations: The Federal rules restrict any use of the information to criminally investigate or prosecute any alcohol or drug abuse patient.[facility] HospitalIn the event this information is protected by the Federal Confidentiality of Alcohol and Drug Abuse Patient Records regulations: The Federal rules restrict any use of the information to criminally investigate or prosecute any alcohol or drug abuse patient.[facility] HospitalIn the event this information is protected by the Federal Confidentiality of Alcohol and Drug Abuse Patient Records regulations: The Federal rules restrict any use of the information to criminally investigate or prosecute any alcohol or drug abuse patient.[facility] HospitalIn the event this information is protected by the Federal Confidentiality of Alcohol and Drug Abuse Patient Records regulations: The Federal rules restrict any use of the information to criminally investigate or prosecute any alcohol or drug abuse patient.[facility] HospitalIn the event this information is protected by the Federal Confidentiality of Alcohol and Drug Abuse Patient Records regulations: The Federal rules restrict any use of the information to criminally investigate or prosecute any alcohol or drug abuse patient.[facility] HospitalIn the event this information is protected by the Federal Confidentiality of Alcohol and Drug Abuse Patient Records regulations: The Federal rules restrict any use of the information to criminally investigate or prosecute any alcohol or drug abuse patient.[facility] HospitalIn the event this information is protected by the Federal Confidentiality of Alcohol and Drug Abuse Patient Records regulations: The Federal rules restrict any use of the information to criminally investigate or prosecute any alcohol or drug abuse patient.[facility] HospitalIn the event this information is protected by the Federal Confidentiality of Alcohol and Drug Abuse Patient Records regulations: The Federal rules restrict any use of the information to criminally investigate or prosecute any alcohol or drug abuse patient.[facility] HospitalIn the event this information is protected by the Federal Confidentiality of Alcohol and Drug Abuse Patient Records regulations: The Federal rules restrict any use of the information to criminally investigate or prosecute any alcohol or drug abuse patient.[facility] HospitalIn the event this information is protected by the Federal Confidentiality of Alcohol and Drug Abuse Patient Records regulations: The Federal rules restrict any use of the information to criminally investigate or prosecute any alcohol or drug abuse patient.[facility] HospitalIn the event this information is protected by the Federal Confidentiality of Alcohol and Drug Abuse Patient Records regulations: The Federal rules restrict any use of the information to criminally investigate or prosecute any alcohol or drug abuse patient.[facility] HospitalIn the event this information is protected by the Federal Confidentiality of Alcohol and Drug Abuse Patient Records regulations: The Federal rules restrict any use of the information to criminally investigate or prosecute any alcohol or drug abuse patient.[facility] HospitalIn the event this information is protected by the Federal Confidentiality of Alcohol and Drug Abuse Patient Records regulations: The Federal rules restrict any use of the information to criminally investigate or prosecute any alcohol or drug abuse patient.[facility] HospitalIn the event this information is protected by the Federal Confidentiality of Alcohol and Drug Abuse Patient Records regulations: The Federal rules restrict any use of the information to criminally investigate or prosecute any alcohol or drug abuse patient.[facility] HospitalIn the event this information is protected by the Federal Confidentiality of Alcohol and Drug Abuse Patient Records regulations: The Federal rules restrict any use of the information to criminally investigate or prosecute any alcohol or drug abuse patient.[facility] HospitalIn the event this information is protected by the Federal Confidentiality of Alcohol and Drug Abuse Patient Records regulations: The Federal rules restrict any use of the information to criminally investigate or prosecute any alcohol or drug abuse patient.[facility] HospitalIn the event this information is protected by the Federal Confidentiality of Alcohol and Drug Abuse Patient Records regulations: The Federal rules restrict any use of the information to criminally investigate or prosecute any alcohol or drug abuse patient.[facility] HospitalIn the event this information is protected by the Federal Confidentiality of Alcohol and Drug Abuse Patient Records regulations: The Federal rules restrict any use of the information to criminally investigate or prosecute any alcohol or drug abuse patient.[facility] HospitalIn the event this information is protected by the Federal Confidentiality of Alcohol and Drug Abuse Patient Records regulations: The Federal rules restrict any use of the information to criminally investigate or prosecute any alcohol or drug abuse patient.[facility] HospitalIn the event this information is protected by the Federal Confidentiality of Alcohol and Drug Abuse Patient Records regulations: The Federal rules restrict any use of the information to criminally investigate or prosecute any alcohol or drug abuse patient.[facility] HospitalIn the event this information is protected by the Federal Confidentiality of Alcohol and Drug Abuse Patient Records regulations: The Federal rules restrict any use of the information to criminally investigate or prosecute any alcohol or drug abuse patient.[facility] HospitalIn the event this information is protected by the Federal Confidentiality of Alcohol and Drug Abuse Patient Records regulations: The Federal rules restrict any use of the information to criminally investigate or prosecute any alcohol or drug abuse patient.[facility] HospitalIn the event this information is protected by the Federal Confidentiality of Alcohol and Drug Abuse Patient Records regulations: The Federal rules restrict any use of the information to criminally investigate or prosecute any alcohol or drug abuse patient.[facility] HospitalIn the event this information is protected by the Federal Confidentiality of Alcohol and Drug Abuse Patient Records regulations: The Federal rules restrict any use of the information to criminally investigate or prosecute any alcohol or drug abuse patient.[facility] HospitalIn the event this information is protected by the Federal Confidentiality of Alcohol and Drug Abuse Patient Records regulations: The Federal rules restrict any use of the information to criminally investigate or prosecute any alcohol or drug abuse patient.[facility] HospitalIn the event this information is protected by the Federal Confidentiality of Alcohol and Drug Abuse Patient Records regulations: The Federal rules restrict any use of the information to criminally investigate or prosecute any alcohol or drug abuse patient.[facility] HospitalIn the event this information is protected by the Federal Confidentiality of Alcohol and Drug Abuse Patient Records regulations: The Federal rules restrict any use of the information to criminally investigate or prosecute any alcohol or drug abuse patient.[facility] HospitalIn the event this information is protected by the Federal Confidentiality of Alcohol and Drug Abuse Patient Records regulations: The Federal rules restrict any use of the information to criminally investigate or prosecute any alcohol or drug abuse patient.[facility] HospitalIn the event this information is protected by the Federal Confidentiality of Alcohol and Drug Abuse Patient Records regulations: The Federal rules restrict any use of the information to criminally investigate or prosecute any alcohol or drug abuse patient.[facility] HospitalIn the event this information is protected by the Federal Confidentiality of Alcohol and Drug Abuse Patient Records regulations: The Federal rules restrict any use of the information to criminally investigate or prosecute any alcohol or drug abuse patient.[facility] HospitalIn the event this information is protected by the Federal Confidentiality of Alcohol and Drug Abuse Patient Records regulations: The Federal rules restrict any use of the information to criminally investigate or prosecute any alcohol or drug abuse patient.[facility] HospitalIn the event this information is protected by the Federal Confidentiality of Alcohol and Drug Abuse Patient Records regulations: The Federal rules restrict any use of the information to criminally investigate or prosecute any alcohol or drug abuse patient.[facility] HospitalIn the event this information is protected by the Federal Confidentiality of Alcohol and Drug Abuse Patient Records regulations: The Federal rules restrict any use of the information to criminally investigate or prosecute any alcohol or drug abuse patient.[facility] HospitalIn the event this information is protected by the Federal Confidentiality of Alcohol and Drug Abuse Patient Records regulations: The Federal rules restrict any use of the information to criminally investigate or prosecute any alcohol or drug abuse patient.[facility] HospitalIn the event this information is protected by the Federal Confidentiality of Alcohol and Drug Abuse Patient Records regulations: The Federal rules restrict any use of the information to criminally investigate or prosecute any alcohol or drug abuse patient.[facility] HospitalIn the event this information is protected by the Federal Confidentiality of Alcohol and Drug Abuse Patient Records regulations: The Federal rules restrict any use of the information to criminally investigate or prosecute any alcohol or drug abuse patient.[facility] HospitalIn the event this information is protected by the Federal Confidentiality of Alcohol and Drug Abuse Patient Records regulations: The Federal rules restrict any use of the information to criminally investigate or prosecute any alcohol or drug abuse patient.[facility] HospitalIn the event this information is protected by the Federal Confidentiality of Alcohol and Drug Abuse Patient Records regulations: The Federal rules restrict any use of the information to criminally investigate or prosecute any alcohol or drug abuse patient.[facility] HospitalIn the event this information is protected by the Federal Confidentiality of Alcohol and Drug Abuse Patient Records regulations: The Federal rules restrict any use of the information to criminally investigate or prosecute any alcohol or drug abuse patient.[facility] HospitalIn the event this information is protected by the Federal Confidentiality of Alcohol and Drug Abuse Patient Records regulations: The Federal rules restrict any use of the information to criminally investigate or prosecute any alcohol or drug abuse patient.[facility] HospitalIn the event this information is protected by the Federal Confidentiality of Alcohol and Drug Abuse Patient Records regulations: The Federal rules restrict any use of the information to criminally investigate or prosecute any alcohol or drug abuse patient.[facility] HospitalIn the event this information is protected by the Federal Confidentiality of Alcohol and Drug Abuse Patient Records regulations: The Federal rules restrict any use of the information to criminally investigate or prosecute any alcohol or drug abuse patient.[facility] HospitalIn the event this information is protected by the Federal Confidentiality of Alcohol and Drug Abuse Patient Records regulations: The Federal rules restrict any use of the information to criminally investigate or prosecute any alcohol or drug abuse patient.[facility] HospitalIn the event this information is protected by the Federal Confidentiality of Alcohol and Drug Abuse Patient Records regulations: The Federal rules restrict any use of the information to criminally investigate or prosecute any alcohol or drug abuse patient.[facility] HospitalIn the event this information is protected by the Federal Confidentiality of Alcohol and Drug Abuse Patient Records regulations: The Federal rules restrict any use of the information to criminally investigate or prosecute any alcohol or drug abuse patient.[facility] HospitalIn the event this information is protected by the Federal Confidentiality of Alcohol and Drug Abuse Patient Records regulations: The Federal rules restrict any use of the information to criminally investigate or prosecute any alcohol or drug abuse patient.[facility] HospitalIn the event this information is protected by the Federal Confidentiality of Alcohol and Drug Abuse Patient Records regulations: The Federal rules restrict any use of the information to criminally investigate or prosecute any alcohol or drug abuse patient.[facility] HospitalIn the event this information is protected by the Federal Confidentiality of Alcohol and Drug Abuse Patient Records regulations: The Federal rules restrict any use of the information to criminally investigate or prosecute any alcohol or drug abuse patient.[facility] HospitalIn the event this information is protected by the Federal Confidentiality of Alcohol and Drug Abuse Patient Records regulations: The Federal rules restrict any use of the information to criminally investigate or prosecute any alcohol or drug abuse patient.[facility] HospitalIn the event this information is protected by the Federal Confidentiality of Alcohol and Drug Abuse Patient Records regulations: The Federal rules restrict any use of the information to criminally investigate or prosecute any alcohol or drug abuse patient.[facility] HospitalIn the event this information is protected by the Federal Confidentiality of Alcohol and Drug Abuse Patient Records regulations: The Federal rules restrict any use of the information to criminally investigate or prosecute any alcohol or drug abuse patient.[facility] HospitalIn the event this information is protected by the Federal Confidentiality of Alcohol and Drug Abuse Patient Records regulations: The Federal rules restrict any use of the information to criminally investigate or prosecute any alcohol or drug abuse patient.[facility] HospitalIn the event this information is protected by the Federal Confidentiality of Alcohol and Drug Abuse Patient Records regulations: The Federal rules restrict any use of the information to criminally investigate or prosecute any alcohol or drug abuse patient.[facility] HospitalIn the event this information is protected by the Federal Confidentiality of Alcohol and Drug Abuse Patient Records regulations: The Federal rules restrict any use of the information to criminally investigate or prosecute any alcohol or drug abuse patient.[facility] HospitalIn the event this information is protected by the Federal Confidentiality of Alcohol and Drug Abuse Patient Records regulations: The Federal rules restrict any use of the information to criminally investigate or prosecute any alcohol or drug abuse patient.[facility] HospitalIn the event this information is protected by the Federal Confidentiality of Alcohol and Drug Abuse Patient Records regulations: The Federal rules restrict any use of the information to criminally investigate or prosecute any alcohol or drug abuse patient.[facility] HospitalIn the event this information is protected by the Federal Confidentiality of Alcohol and Drug Abuse Patient Records regulations: The Federal rules restrict any use of the information to criminally investigate or prosecute any alcohol or drug abuse patient.[facility] HospitalIn the event this information is protected by the Federal Confidentiality of Alcohol and Drug Abuse Patient Records regulations: The Federal rules restrict any use of the information to criminally investigate or prosecute any alcohol or drug abuse patient.[facility] HospitalIn the event this information is protected by the Federal Confidentiality of Alcohol and Drug Abuse Patient Records regulations: The Federal rules restrict any use of the information to criminally investigate or prosecute any alcohol or drug abuse patient.[facility] HospitalIn the event this information is protected by the Federal Confidentiality of Alcohol and Drug Abuse Patient Records regulations: The Federal rules restrict any use of the information to criminally investigate or prosecute any alcohol or drug abuse patient.[facility] HospitalIn the event this information is protected by the Federal Confidentiality of Alcohol and Drug Abuse Patient Records regulations: The Federal rules restrict any use of the information to criminally investigate or prosecute any alcohol or drug abuse patient.[facility] HospitalIn the event this information is protected by the Federal Confidentiality of Alcohol and Drug Abuse Patient Records regulations: The Federal rules restrict any use of the information to criminally investigate or prosecute any alcohol or drug abuse patient.[facility] HospitalIn the event this information is protected by the Federal Confidentiality of Alcohol and Drug Abuse Patient Records regulations: The Federal rules restrict any use of the information to criminally investigate or prosecute any alcohol or drug abuse patient.[facility] HospitalIn the event this information is protected by the Federal Confidentiality of Alcohol and Drug Abuse Patient Records regulations: The Federal rules restrict any use of the information to criminally investigate or prosecute any alcohol or drug abuse patient.[facility] HospitalIn the event this information is protected by the Federal Confidentiality of Alcohol and Drug Abuse Patient Records regulations: The Federal rules restrict any use of the information to criminally investigate or prosecute any alcohol or drug abuse patient.[facility] HospitalIn the event this information is protected by the Federal Confidentiality of Alcohol and Drug Abuse Patient Records regulations: The Federal rules restrict any use of the information to criminally investigate or prosecute any alcohol or drug abuse patient.[facility] HospitalIn the event this information is protected by the Federal Confidentiality of Alcohol and Drug Abuse Patient Records regulations: The Federal rules restrict any use of the information to criminally investigate or prosecute any alcohol or drug abuse patient.[facility] HospitalIn the event this information is protected by the Federal Confidentiality of Alcohol and Drug Abuse Patient Records regulations: The Federal rules restrict any use of the information to criminally investigate or prosecute any alcohol or drug abuse patient.[facility] HospitalIn the event this information is protected by the Federal Confidentiality of Alcohol and Drug Abuse Patient Records regulations: The Federal rules restrict any use of the information to criminally investigate or prosecute any alcohol or drug abuse patient.[facility] HospitalIn the event this information is protected by the Federal Confidentiality of Alcohol and Drug Abuse Patient Records regulations: The Federal rules restrict any use of the information to criminally investigate or prosecute any alcohol or drug abuse patient.[facility] HospitalIn the event this information is protected by the Federal Confidentiality of Alcohol and Drug Abuse Patient Records regulations: The Federal rules restrict any use of the information to criminally investigate or prosecute any alcohol or drug abuse patient.[facility] HospitalIn the event this information is protected by the Federal Confidentiality of Alcohol and Drug Abuse Patient Records regulations: The Federal rules restrict any use of the information to criminally investigate or prosecute any alcohol or drug abuse patient.[facility] HospitalIn the event this information is protected by the Federal Confidentiality of Alcohol and Drug Abuse Patient Records regulations: The Federal rules restrict any use of the information to criminally investigate or prosecute any alcohol or drug abuse patient.[facility] HospitalIn the event this information is protected by the Federal Confidentiality of Alcohol and Drug Abuse Patient Records regulations: The Federal rules restrict any use of the information to criminally investigate or prosecute any alcohol or drug abuse patient.[facility] HospitalIn the event this information is protected by the Federal Confidentiality of Alcohol and Drug Abuse Patient Records regulations: The Federal rules restrict any use of the information to criminally investigate or prosecute any alcohol or drug abuse patient.[facility] HospitalIn the event this information is protected by the Federal Confidentiality of Alcohol and Drug Abuse Patient Records regulations: The Federal rules restrict any use of the information to criminally investigate or prosecute any alcohol or drug abuse patient.[facility] HospitalIn the event this information is protected by the Federal Confidentiality of Alcohol and Drug Abuse Patient Records regulations: The Federal rules restrict any use of the information to criminally investigate or prosecute any alcohol or drug abuse patient.[facility] HospitalIn the event this information is protected by the Federal Confidentiality of Alcohol and Drug Abuse Patient Records regulations: The Federal rules restrict any use of the information to criminally investigate or prosecute any alcohol or drug abuse patient.[facility] HospitalIn the event this information is protected by the Federal Confidentiality of Alcohol and Drug Abuse Patient Records regulations: The Federal rules restrict any use of the information to criminally investigate or prosecute any alcohol or drug abuse patient.[facility] HospitalIn the event this information is protected by the Federal Confidentiality of Alcohol and Drug Abuse Patient Records regulations: The Federal rules restrict any use of the information to criminally investigate or prosecute any alcohol or drug abuse patient.[facility] HospitalIn the event this information is protected by the Federal Confidentiality of Alcohol and Drug Abuse Patient Records regulations: The Federal rules restrict any use of the information to criminally investigate or prosecute any alcohol or drug abuse patient.[facility] HospitalIn the event this information is protected by the Federal Confidentiality of Alcohol and Drug Abuse Patient Records regulations: The Federal rules restrict any use of the information to criminally investigate or prosecute any alcohol or drug abuse patient.[facility] HospitalIn the event this information is protected by the Federal Confidentiality of Alcohol and Drug Abuse Patient Records regulations: The Federal rules restrict any use of the information to criminally investigate or prosecute any alcohol or drug abuse patient.[facility] HospitalIn the event this information is protected by the Federal Confidentiality of Alcohol and Drug Abuse Patient Records regulations: The Federal rules restrict any use of the information to criminally investigate or prosecute any alcohol or drug abuse patient.[facility] HospitalIn the event this information is protected by the Federal Confidentiality of Alcohol and Drug Abuse Patient Records regulations: The Federal rules restrict any use of the information to criminally investigate or prosecute any alcohol or drug abuse patient.[facility] HospitalIn the event this information is protected by the Federal Confidentiality of Alcohol and Drug Abuse Patient Records regulations: The Federal rules restrict any use of the information to criminally investigate or prosecute any alcohol or drug abuse patient.[facility] HospitalIn the event this information is protected by the Federal Confidentiality of Alcohol and Drug Abuse Patient Records regulations: The Federal rules restrict any use of the information to criminally investigate or prosecute any alcohol or drug abuse patient.[facility] HospitalIn the event this information is protected by the Federal Confidentiality of Alcohol and Drug Abuse Patient Records regulations: The Federal rules restrict any use of the information to criminally investigate or prosecute any alcohol or drug abuse patient.[facility] HospitalIn the event this information is protected by the Federal Confidentiality of Alcohol and Drug Abuse Patient Records regulations: The Federal rules restrict any use of the information to criminally investigate or prosecute any alcohol or drug abuse patient.[facility] HospitalIn the event this information is protected by the Federal Confidentiality of Alcohol and Drug Abuse Patient Records regulations: The Federal rules restrict any use of the information to criminally investigate or prosecute any alcohol or drug abuse patient.[facility] HospitalIn the event this information is protected by the Federal Confidentiality of Alcohol and Drug Abuse Patient Records regulations: The Federal rules restrict any use of the information to criminally investigate or prosecute any alcohol or drug abuse patient.[facility] Care Teams (unrecognized sec tion and [...] November 04, 2023 End: November 04, 2023 Occ Therapist Relationship Specialty Start Date End Date Gay Enciso, NURSE PRN.HYPERION ESSBASE DEVELOPER [address] [place] [place] [address] PCP - General Family Practice 10/24/21 Occ Therapist Relationship Specialty Start Date End Date Gay Enciso, NURSE PRN.HYPERION ESSBASE DEVELOPER [address] [place] [place] [address] PCP - General Family Medicine 10/24/21 Manuel Ferris MD [address] [place] [facility] [address] Referring Family Medicine 02/12/22 Occ Therapist Relationship Specialty Start Date End Date Manuel Ferris MD [address] [place] [facility] [place] [address] PCP - General Family Medicine 02/27/22 Manuel Ferris MD [address] [place] [place] [address] Referring Family Medicine 02/12/22 Occ Therapist Relationship Specialty Start Date End Date Manuel Ferris MD [address] [place] [facility] [place] [address] PCP - General Family Medicine 02/27/22 Manuel Ferris MD [address] [place] [place] [address] Referring Family Medicine 02/12/22 Occ Therapist Relationship Specialty Start Date End Date Manuel Ferris MD [address] [place] [place] [address] PCP - General Family Medicine 02/27/22 Manuel Ferris MD [address] [place] [place] [address] Referring Family Medicine 02/12/22 Occ Therapist Relationship Specialty Start Date End Date Manuel Ferris MD [address] [place] [place] [address] PCP - General Family Medicine 02/27/22 Manuel Ferris MD [address] [place] [place] [address] Referring Family Medicine 02/12/22 Occ Therapist Relationship Specialty Start Date End Date Manuel Ferris MD [address] [place] [place] [address] PCP - General Family Medicine 02/27/22 Manuel Ferris MD [address] [place] [place] [address] Referring Family Medicine 02/12/22 Occ Therapist Relationship Specialty Start Date End Date Manuel Ferris MD [address] [place] [place] [address] PCP - General Family Medicine 02/27/22 Manuel Ferris MD [address] [place] [place] [address] Referring Family Medicine 02/12/22 Occ Therapist Relationship Specialty Start Date End Date Manuel Ferris MD [address] [place] [address] PCP - General Family Medicine 02/27/22 Manuel Ferris MD [address] [place] [place] [address] Referring Family Medicine 02/12/22 Occ Therapist Relationship Specialty Start Date End Date Manuel Ferris MD [address] [place] [address] PCP - General Family Medicine 02/27/22 Manuel Ferris MD [address] [place] [place] [address] Referring Family Medicine 02/12/22 Occ Therapist Relationship Specialty Start Date End Date Manuel Ferris MD [address] [place] [place] [address] PCP - General Family Medicine 02/27/22 Manuel Ferris MD [address] [place] [facility] [place] [address] Referring Family Medicine 02/12/22 Occ Therapist Relationship Specialty Start Date End Date Manuel Ferris MD [address] [place] [place] [address] PCP - General Family Medicine 02/27/22 Manuel Ferris MD [address] [place] [place] [address] Referring Family Medicine 02/12/22 Occ Therapist Relationship Specialty Start Date End Date Manuel Ferris MD [address] [place] [place] [address] PCP - General Family Medicine 02/27/22 Manuel Ferris MD [address] [place] [place] [address] Referring Family Medicine 02/12/22 Occ Therapist Relationship Specialty Start Date End Date Manuel Ferris MD [address] [place] [place] [address] PCP - General Family Medicine 02/27/22 Manuel Ferris MD [address] [place] [place] [address] Referring Family Medicine 02/12/22 Occ Therapist Relationship Specialty Start Date End Date Mnauel Ferris MD [address] [place] [place] [address] PCP - General Family Medicine 02/27/22 Manuel Ferris MD [address] [place] [place] [address] Referring Family Medicine 02/12/22 Occ Therapist Relationship Specialty Start Date End Date Manuel Ferris MD [address] [place] [place] [address] PCP - General Family Medicine 02/27/22 Manuel Ferris MD [address] [place] [address] Referring Family Medicine 02/12/22 Occ Therapist Relationship Specialty Start Date End Date Manuel Ferris MD [address] [place] [place] [address] PCP - General Family Medicine 02/27/22 Manuel Ferris MD [address] [place] [place] [address] Referring Family Medicine 02/12/22 Occ Therapist Relationship Specialty Start Date End Date Manuel Ferris MD [address] [place] [place] [address] PCP - General Family Medicine 02/27/22 Manuel Ferris MD [address] [place] [place] [address] Referring Family Medicine 02/12/22 Occ Therapist Relationship Specialty Start Date End Date Manuel Ferris MD [address] [place] [place] [address] PCP - General Family Medicine 02/27/22 Manuel Ferris MD [address] [place] [place] [address] Referring Family Medicine 02/12/22 Occ Therapist Relationship Specialty Start Date End Date Manuel Ferris MD [address] [place] [place] [address] PCP - General Family Medicine 02/27/22 Manuel Ferris MD [address] [place] [place] [address] Referring Family Medicine 02/12/22 Occ Therapist Relationship Specialty Start Date End Date Manuel Ferris MD [address] [place] [place] [address] PCP - General Family Medicine 02/27/22 Manuel Ferris MD [address] [place] [address] Referring Family Medicine 02/12/22 Occ Therapist Relationship Specialty Start Date End Date Manuel Ferris MD [address] [place] [address] PCP - General Family Medicine 02/27/22 Manuel Ferris MD [address] [place] [address] Referring Family Medicine 02/12/22 Occ Therapist Relationship Specialty Start Date End Date Manuel Ferris MD [address] [place] [address] PCP - General Family Medicine 02/27/22 Manuel Ferris MD [address] [place] [address] Referring Family Medicine 02/12/22 Occ Therapist Relationship Specialty Start Date End Date Manuel Ferris MD PCP - General Family Medicine 02/27/22 Mnauel Ferris MD Referring Family Medicine 02/12/22 Occ Therapist Relationship Specialty Start Date End Date Manuel Ferris MD PCP - General Family Medicine 02/27/22 Manuel Ferris MD Referring Family Medicine 02/12/22 Occ Therapist Relationship Specialty Start Date End Date Manuel Ferris MD PCP - General Family Medicine 02/27/22 Manuel Ferris MD Referring Family Medicine 02/12/22 Occ Therapist Relationship Specialty Start Date End Date Manuel Ferris MD PCP - General Family Medicine 02/27/22 Manuel Ferris MD Referring Family Medicine 02/12/22 Occ Therapist Relationship Specialty Start Date End Date Manuel Ferris MD PCP - General Family Medicine 02/27/22 Manuel Ferris MD Referring Family Medicine 02/12/22 Occ Therapist Relationship Specialty Start Date End Date Manuel Ferris MD PCP - General Family Medicine 02/27/22 Manuel Ferris MD Referring Family Medicine 02/12/22 Occ Therapist Relationship Specialty Start Date End Date Manuel Ferris MD PCP - General Family Medicine 02/27/22 Manuel Ferris MD Referring Family Medicine 02/12/22 Occ Therapist Relationship Specialty Start Date End Date Manuel Ferris MD PCP - General Family Medicine 02/27/22 Manuel Ferris MD Referring Family Medicine 02/12/22 Occ Therapist Relationship Specialty Start Date End Date Manuel Ferris MD PCP - General Family Medicine 02/27/22 Manuel Ferris MD Referring Family Medicine 02/12/22 Occ Therapist Relationship Specialty Start Date End Date Manuel Ferris MD PCP - General Family Medicine 02/27/22 Manuel Ferris MD Referring Family Medicine 02/12/22 Occ Therapist Relationship Specialty Start Date End Date Manuel Ferris MD PCP - General Family Medicine 02/27/22 Manuel Ferris MD Referring Family Medicine 02/12/22 Occ Therapist Relationship Specialty Start Date End Date Manuel Ferris MD PCP - General Family Medicine 02/27/22 Manuel Ferris MD Referring Family Medicine 02/12/22 Occ Therapist Relationship Specialty Start Date End Date Manuel Ferris MD PCP - General Family Medicine 02/27/22 Manuel Ferris MD Referring Family Medicine 02/12/22 Occ Therapist Relationship Specialty Start Date End Date Manuel Ferris MD PCP - General Family Medicine 02/27/22 Manuel Ferris MD Referring Family Medicine 02/12/22 Occ Therapist Relationship Specialty Start Date End Date Manuel Ferris MD PCP - General Family Medicine 02/27/22 Manuel Ferris MD Referring Family Medicine 02/12/22 Occ Therapist Relationship Specialty Start Date End Date Manuel Ferris MD PCP - General Family Medicine 02/27/22 Manuel Ferris MD Referring Family Medicine 02/12/22 Occ Therapist Relationship Specialty Start Date End Date Manuel Ferris MD PCP - General Family Medicine 02/27/22 Manuel Ferris MD Referring Family Medicine 02/12/22 Occ Therapist Relationship Specialty Start Date End Date Manuel Ferris MD PCP - General Family Medicine 02/27/22 Manuel Ferris MD Referring Family Medicine 02/12/22 Occ Therapist Relationship Specialty Start Date End Date Manuel Ferris MD PCP - General Family Medicine 02/27/22 Manuel Ferris MD Referring Family Medicine 02/12/22 Occ Therapist Relationship Specialty Start Date End Date Manuel Ferris MD PCP - General Family Medicine 02/27/22 Manuel Ferris MD Referring Family Medicine 02/12/22 Occ Therapist Relationship Specialty Start Date End Date Manuel Ferris MD PCP - General Family Medicine 02/27/22 Manuel Ferris MD Referring Family Medicine 02/12/22 Occ Therapist Relationship Specialty Start Date End Date Manuel Ferris MD PCP - General Family Medicine 02/27/22 Manuel Ferris MD Referring Family Medicine 02/12/22 Occ Therapist Relationship Specialty Start Date End Date Manuel Ferris MD PCP - General Family Medicine 02/27/22 Manuel Ferris MD Referring Family Medicine 02/12/22 Occ Therapist Relationship Specialty Start Date End Date Manuel Ferris MD PCP - General Family Medicine 02/27/22 Manuel Ferris MD Referring Family Medicine 02/12/22 Occ Therapist Relationship Specialty Start Date End Date Manuel Ferris MD PCP - General Family Medicine 02/27/22 Manuel Ferris MD Referring Family Medicine 02/12/22 Occ Therapist Relationship Specialty Start Date End Date Manuel Ferris MD PCP - General Family Medicine 02/27/22 aMnuel Ferris MD Referring Family Medicine 02/12/22 Occ Therapist Relationship Specialty Start Date End Date Lady Mitchell [address] [place] [address] PCP - General 10/22/18 Michelle Britton, NURSE PRN-HYPERION ESSBASE DEVELOPER [address] [address] Nurse Practitioner Cardiology 06/08/23 Occ Therapist Relationship Specialty Start Date End Date Gay Enciso NURSE PRN-HYPERION ESSBASE DEVELOPER [address] [place] [address] PCP - General 07/13/23 Michelle Britton, NURSE PRN-HYPERION ESSBASE DEVELOPER [address] [address] Nurse Practitioner Cardiology 06/08/23 Aurora Patel MD [address] [address] Consulting Physician Cardiology 06/23/23 Occ Therapist Relationship Specialty Start Date End Date Manuel Ferris MD PCP - General Family Medicine 02/27/22 Manuel Ferris MD Referring Family Medicine 02/12/22 Occ Therapist Relationship Specialty Start Date End Date Manuel Ferris MD PCP - General Family Medicine 02/27/22 Manuel Ferris MD Referring Family Medicine 02/12/22 Team Status: Active Member Role Status Dates Lui Salomon MD Primary Care Provider Active Start: July 28, 2023 Virgil Green MD Attending Provider Active S tart: July 28, 2023 Occ Therapist Relationship Specialty Start Date End Date Manuel Ferris MD PCP - General Family Medicine 02/27/22 Manuel Ferris MD Referring Family Medicine 02/12/22 Team Status: Inactive Member Role Status Dates Lui Salomon MD Primary Care Provider Active Start: December 16, 2023 End: December 16, 2023 Mirela Kelsey MD Attending Provider Active Sta rt: December 16, 2023 End: December 16, 2023 Occ Therapist Relationship Specialty Start Date End Date Manuel Ferris MD PCP - General Family Medicine 02/27/22 Manuel Ferris MD Referring Family Medicine 02/12/22 Occ Therapist Relationship Specialty Start Date End Date Manuel Ferris MD PCP - General Family Medicine 02/27/22 Manuel Ferris MD Referring Family Medicine 02/12/22 Occ Therapist Relationship Specialty Start Date End Date Manuel Ferris MD PCP - General Family Medicine 02/27/22 Manuel Ferris MD Referring Family Medicine 02/12/22 Occ Therapist Relationship Specialty Start Date End Date Manuel Ferris MD PCP - General Family Medicine 02/27/22 Manuel Ferris MD Referring Family Medicine 02/12/22 Team Status: Inactive Member Role Status Dates Lui Salomon MD Primary Care Provider Active Start: January 28, 2024 End: January 28, 2024 Adolfo Kang MD Attending Provider Active Sta rt: January 28, 2024 End: January 28, 2024 Kade Richardson MD Referring Provider Active Start: January [...] February 28, 2024 End: February 28, 2024 DELIA GallowayC Primary Care Provider Active Start: February 28, 2024 End: February 28, 2024 Occ Therapist Relationship Specialty Start Date End Date Lady Mitchell MD [address] [place] [address] PCP - General Family Medicine 02/09/24 Team Status: Inactive Member Role Status Dates Gay Enciso , TOOL SUPERVISOR-C Primary Care Provider Active Start: March 16, 2024 End: March 16, 2024 Bandar Portillo APRN Attending Provider Active Start: March 16, 2024 End: March 16, 2024 Occ Therapist Relationship Specialty Start Date End Date Lady Mitchell MD [address] [place] [address] PCP - General Family Medicine 02/09/24 Occ Therapist Relationship Specialty Start Date End Date Lady Mitchell MD [address] [place] [address] PCP - General Family Medicine 02/09/24 Occ Therapist Relationship Specialty Start Date End Date Lady Mitchell MD [address] [place] [address] PCP - General Family Medicine 02/09/24 Occ Therapist Relationship Specialty Start Date End Date Lady Mitchell MD [address] [place] [address] PCP - General Family Medicine 02/09/24 Occ Therapist Relationship Specialty Start Date End Date Lady Mitchell MD [address] [place] [address] PCP - General Family Medicine 02/09/24 Occ Therapist Relationship Specialty Start Date End Date Manuel Ferris MD PCP - General Family Medicine 02/27/22 Manuel Ferris MD Referring Family Medicine 02/12/22 Occ Therapist Relationship Specialty Start Date End Date Lady Mitchell MD [address] [place] [address] PCP - General Family Medicine 02/09/24 Occ Therapist Relationship Specialty Start Date End Date Lady Mitchell MD [address] [place] [address] PCP - General Family Medicine 02/09/24 Occ Therapist Relationship Specialty Start Date End Date Lady Mitchell MD [address] [place] [address] PCP - General Family Medicine 02/09/24 Occ Therapist Relationship Specialty Start Date End Date Lady Mitchell MD [address] [place] [address] PCP - General Family Medicine 02/09/24 Occ Therapist Relationship Specialty Start Date End Date Manuel Ferris MD PCP - General Family Medicine 02/27/22 Manuel Ferris MD Referring Family Medicine 02/12/22 Occ Therapist Relationship Specialty Start Date End Date Lady Mitchell MD [address] [place] [address] PCP - General Family Medicine 02/09/24 Inactive [...] BE BASED ON THE PRIMARY CLINICAL RECORDS. [employer] provides no warranty or guarantee of the accuracy or completeness of information in this document.
== END 2024-06-06 19:46 | disposition home or self-care (01) ==
LOC: LAB 19:45
PROVIDERS: PCP Nurse Practitioner Family; Visit Provider Physician Assistant
DX: Z01.419 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 gynecological examination (general) (routine) without abnormal findings (principal)
CPT/HCPCS: 87624; 88175

== ENCOUNTER 2024-06-14 14:17 | Outpatient (OUT) | payer OTHER, SELFPAY ==
--- NOTE | 2024-06-14 14:20 | US_ITS ---
Patient Name: JONES HALEY MR#: [id number] : 1980 Exam Date: 06/14/2024 Ordering Doctor: KELVIN Plascencia . RADIOLOGY REPORT PROCEDURE: US BREAST LT LIMITED COMPARISON: None. INDICATIONS: Left Axilla Nodule TECHNIQUE: Breast ultrasound was performed, with evaluation focusing only on specific areas of concern. FINDINGS: DIAGNOSTIC CATEGORY 3--PROBABLY BENIGN FINDING. THE FOLLOWING FINDING(S) HAS A HIGH PROBABILITY OF A BENIGN ETIOLOGY: LEFT BREAST: Within the subdermal layer of the left breast axillary tail corresponding to patient's palpable lump is a 7 x 6 x 4 mm hypoechoic well-circumscribed lesion with slightly isoechoic central and no appreciable internal blood flow on color Doppler. Sebaceous gland cyst versus lymph node? Neoplasm is not excluded but felt less likely. Ultrasound-guided tissue sampling could be performed if clinically indicated. RECOMMENDATIONS: CLINICAL EVALUATION. PLEASE NOTE: A NORMAL ULTRASOUND EXAMINATION DOES NOT EXCLUDE THE POSSIBILITY OF BREAST CANCER. A CLINICALLY SUSPICIOUS PALPABLE LUMP SHOULD BE BIOPSIED. Dictated by: Vito Yusuf M.D. on 06/14/2024 at 15:01 Approved by: Vito Yusuf M.D. on 06/14/2024 at 15:04
--- NOTE | 2024-06-14 14:20 | MM_ITS ---
Patient Name: JONES HALEY MR#: [id number] : 1980 Exam Date: 06/14/2024 Ordering Doctor: KELVIN Plascencia . RADIOLOGY REPORT PROCEDURE: MM TOMOSYNTHESIS DIAGNOSTIC LT COMPARISON: US BREAST LT LIMITED, 06/14/2024. MM TOMOSYNTHESIS DIAGNOSTIC BI, 04/06/2024. MM TOMOSYNTHESIS SCREENING BI, 09/23/2023. MG MAMM SCREEN 3D MARK CAD, 09/01/2022. INDICATIONS: Left Axilla Nodule Calculator Name NCI Breast Cancer Risk Assessment Tool 5 Year Breast Cancer Risk 1.00% Lifetime Breast Cancer Risk 13.20% Personal Breast Cancer No Personal Ovarian Cancer No Treatments None Family Cancers Grandmother-paternal with breast cancer at age ~67; Aunt-paternal with breast cancer at age ~50; Father with stomach cancer at age 56. LOCATION: [facility] BREAST COMPOSITION: There are scattered areas of fibroglandular density. FINDINGS: DIAGNOSTIC CATEGORY 3--PROBABLY BENIGN FINDING. THE FOLLOWING FINDING(S) HAS A HIGH PROBABILITY OF A BENIGN ETIOLOGY: LEFT BREAST: Skin surface marker present over the posterior upper outer quadrant with no underlying suspicious abnormality. Ultrasound evaluation demonstrates a hypoechoic nodule versus cyst within the axillary tail, 7 x 6 x 4 millimeters. No internal blood flow. Findings nonspecific but suggestive of a sebaceous gland cyst or possibly a lymph node. Ultrasound-guided tissue sampling could be performed if clinically indicated. Otherwise clinical follow-up and annual screening mammography. RECOMMENDATIONS: CLINICAL EVALUATION. PLEASE NOTE: A NORMAL MAMMOGRAM DOES NOT EXCLUDE THE POSSIBILITY OF BREAST CANCER. A CLINICALLY SUSPICIOUS PALPABLE LUMP SHOULD BE BIOPSIED. Dictated by: Vito Yusuf M.D. on 06/14/2024 at 16:11 Approved by: Vito Yusuf M.D. on 06/14/2024 at 16:14
== END 2024-06-14 14:18 | disposition home or self-care (01) ==
LOC: MAMMO 14:17
PROVIDERS: PCP Nurse Practitioner Family; Visit Provider Physician Assistant
DX: N63.21 Unspecified lump in the left breast, upper outer quadrant (principal); Z80.3 Family history of malignant neoplasm of breast; Z80.0 Family history of malignant neoplasm of digestive organs
CPT/HCPCS: 76642; 77065; G0279

== ENCOUNTER 2024-08-08 06:38 | Outpatient (OUT) | payer OTHER, SELFPAY ==
--- OUTSIDE RECORDS SUMMARY | 2024-08-08 06:44 | XMS_ITS | CCD ---
Author Organization [facility] Care Team Providers Care Basket Mender Name Role Phone VICTOR MANUEL GUZMAN Referring Unavailable Unavailable Primary Care Provider UnavailJONAS Stuart Referring Unavailable Britt GORE STITCHER.TRUE, Gay Primary Care Provider Mirela Kelsey Unavailable Britt GORE STITCHER.MANAGER INTELLIGENCE, Gay Primary Care Provider Manuel Ferris MD Unavailable Manuel Ferris MD Primary Care Provider Manuel Ferris MD Unavailable Manuel Ferris MD Primary Care Provider [phone] Manuel Ferris MD Unavailable Manuel Freris MD Primary Care Provider [phone] JOSY [...] MARISSA, DR SAYDA Nelson Consulting Unavailable Charles Nicole DO Primary Care Provider Mitali GORE STITCHER-MANAGER INTELLIGENCE, Michelle London Unavailable [phone] Unavailable Primary Care Provider UnavailAurora Carney MD Unavailable Britt GORE STITCHER-MANAGER INTELLIGENCE, Gay S Primary Care Provider Manuel Ferris MD Primary Care Provider [phone] MD Adolfo Kang Attending Provider Britt, CARISSA-C Gay Natalie Primary Care Provider Charles Nicole MD Primary Care Provider CALOS MENDOZA Attending Unavailable Unavailable Primary Care Provider UnavailManuel Calixto MD Unavailable Britt NITROGLYCERIN SEPARATOR OPERATOR-C, Gay Natalie Primary Care Provider [phone] Jorge Luis LEE, Adolfo S Attending Provider ALHAJI HEAD Attending Unavailable MANUEL FERRIS Primary Care Unavailable ALHAJI HEAD Attending Unavailable VAIBHAV CARVALHO Referring Unavailable MANUEL FERRIS Primary Care Unavailable Adolfo Kang Attending Unavailable Adolfo Kang Admitting Unavailable Gay Enciso Primary Care Unavailable Adolfo Kang Admitting Unavailable Adolfo Kang Attending Unavailable Britt Gay Natalie Primary Care Unavailable Gay Enciso MD Unavailable Mitali GORE STITCHER-MANAGER INTELLIGENCE, Michelle London Unavailable [phone] Aurora Patel MD Unavailable Gay Workman Primary Care Provider HOY, MANUEL M Primary Care Unavailable HOY, MANUEL M Primary Care Unavailable HOY, MANUEL M Primary Care Unavailable MARKY BARNES Attending Unavailable HOY, MANUEL M Primary Care Unavailable HOY, MANUEL M Primary Care Unavailable HOY, MANUEL M Primary Care Unavailable ABHYANKAR, VERA Referring Unavailable HOY, MANUEL M Primary Care Unavailable ABHYANKAR, VERA Attending Unavailable HOY, MANUEL M Primary Care Unavailable LAST, LYNNE Referring Unavailable LAST LYNNE Attending Unavailable HOY, MANUEL M Primary Care Unavailable ABHYANKAR, VERA Referring Unavailable HOY, MANUEL M Primary Care Unavailable LAST, LYNNE Referring Unavailable HOY, MANUEL M Primary Care Unavailable HOY, MANUEL M Primary Care Unavailable HOY, MANUEL M Primary Care Unavailable JULI NARAYANAN Attending Unavailable HOY, MANUEL M Primary Care Unavailable HOY, MANUEL M Primary Care Unavailable LAST, LYNNE Attending Unavailable HOY, MANUEL M Primary Care Unavailable HOY, MANUEL M Primary Care Unavailable HOY, MANUEL M Primary Care Unavailable ABHYANKAR, VERA Referring Unavailable HOY, MANUEL M Primary Care Unavailable HOY, MANUEL M Primary Care Unavailable HOY, MANUEL M Primary Care Unavailable ABHYANKAR, VERA Referring Unavailable VAIBHAV CARVALHO Attending Unavailable HOY, MANUEL M Primary Care Unavailable HOY, MANUEL M Primary Care Unavailable ABHYANKAR, VERA Attending Unavailable HOY, MANUEL M Primary Care Unavailable HOY, MANUEL M Primary Care Unavailable HOY, MANUEL M Primary Care Unavailable LEXUS HECK Attending Unavailable HOY, MANUEL M Primary Care Unavailable HOY, MANUEL M Primary Care Unavailable ABHYANKAR, VERA Referring Unavailable HOY, MANUEL M Primary Care Unavailable BERNABE ENGLISH Attending Unavailable GORDO BARFIELD Attending Unavailable GAY ENCISO Referring Unavailable KADE RICHARDSON Attending Unavailable ZITA ROGERS Attending Unavailab LUAN Yates Attending Unavailable DIGNA PRICE Attending Unavailable ZITA ROGERS Attending Unavailab ZITA Braden Referring Unavailab ZITA Braden Attending Unavailab LUAN Yates Attending Unavailable OLY PLASCENCIA Attending Unavailable MARKY MIKE Attending Unavailable GORDO BARFIELD Attending Unavailable GAY ENCISO Referring Unavailable OLY PLASCENCIA Attending Unavailable LOIS HOLM Attending Unavailable GAY ECNISO S Primary Care Unavailable LOIS HOLM Attending Unavailable LOIS HOLM Referring Unavailable BRITT, GAY S Primary Care Unavailable Britt NITROGLYCERIN SEPARATOR OPERATOR-C, Gay Estrada Primary Care Provider Adolfo Kang MD Attending Provider Allergies Allergy Classification Reported Allergen(s) Allergy Type Date of Onset Reaction(s) Facility Dihydrofolate Reductase Inhibitors (antibiotic) (3 sources) Trimethoprim Drug Allergy Other: See Comments [facility] Doxycycline (3 sources) Doxycycline Drug Allergy Other: See Comments [facility] Latex (3 sources) Latex Substance Allergy Rash [facility] Lincosamides (antibiotic) (3 sources) Clindamycin Drug Allergy Unknown [facility] Opioid Agonists (3 sources) Codeine Drug Allergy Other: See Comments [facility] Sulfamethoxazole / Trimethoprim (4 sources) Sulfamethoxazole / Trimethoprim Drug Allergy [facility] Sulfonamides (antibiotic) (3 sources) Sulfamethoxazole Drug Allergy Other: See Comments [facility] Work Phone: (20 sources) Codeine; Translations: [CODEINE] Drug Allergy Other: See Comments [facility] (20 sources) Latex; Translations: [LATEX] Drug Allergy Rash [facility] (20 sources) Sulfamethoxazole; Translations: [SULFAMETHOXAZOLE] Drug Allergy GI Upset, Other: See Comments [facility] (20 sources) Clindamycin; Translations: [CLINDAMYCIN] Drug Allergy Unknown [facility] (4 sources) Sulfamethoxazole / Trimethoprim Drug Allergy lymph swelling [facility] Other (20 sources) Doxycycline; Translations: [DOXYCYCLINE] Drug Allergy Other: See Comments, Other, Unknown, Other (See Comments) [facility] (20 sources) Sulfamethoxazole / Trimethoprim; Translations: [SULFAMETHOXAZOLE-T RIMETHOPRIM] Drug Allergy Swelling, Other, GI Disturbance, Other (See Comments) [facility] (20 sources) Trimethoprim; Translations: [TRIMETHOPRIM] Drug Allergy Other: See Comments [facility] (1 source) Latex Drug allergy (disorder) [facility] (1 source) Sulfamethoxazole / Trimethoprim Drug Allergy [facility] (20 sources) Sulfamethoxazole Allergy to substance [facility] (20 sources) Latex Propensity to adverse reactions Rash [facility] (1 source) Omeprazole; Translations: [OMEPRAZOLE] Drug Allergy [facility] Repository (1 source) pantoprazole; Translations: [PANTOPRAZOLE] Drug Allergy [facility] Repository (1 source) Clindamycin Drug Allergy [facility] (1 source) Sulfamethoxazole Drug Allergy [facility] Rep[facility] (1 source) Trimethoprim Drug Allergy [facility] Medications Current Medications Medication Drug Class(es) Dates Sig (Normalized) Sig (Original) amoxicillin 875 mg oral tablet (2 sources) [...] tablet 1 11/11/2023 Active Start: 05-24-2023 take 1 tablet by ce th three times daily Azathioprine 50 mg tablet Active 50 MG PO Three times daily October 20, 2023 12:00am Start: 05-24-2023 take 50 mg by mouth twice ankur y Azathioprine Active 50 MG PO Twice daily October 20, 2023 12:00am Start: 02-16-2023 take 3 tablets by mo uth three times daily azaTHIOprine (Imuran) 50 mg tablet Take 3 tablets (150 mg) by mouth 3 times a day. 02/16/2023 Active Start: 11-24-2022 End: 02-16-2023 take [...] 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 correction 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 Take 2tab daily [...] tablet (20 sources) gamma-Aminobutyric Acid-ergic Agonist Start: 024 End: take 1 tablet by mouth at bedtime baclofen (Lioresal) 5 MG tablet Indications: Lumbosacral radiculopathy at L5 , Degenerative disc disease, lumbar , Cervical radiculopathy at C5 TAKE 1 TABLET BY MOUTH IN THE MORNING, EVENING AND BEFORE BEDTIME 270 tablet 1 03/02/2024 Active 1 ml belimumab 200 mg/ml auto-injector (20 sources) B Lymphocyte Stimulator-specific Inhibitor Start: 023 End: inject 200 mg by subcutaneous injection every week Belimumab (Benlysta) 200 mg/mL auto-injector Active 200 MG SUBCUT every week October 20, 2023 12:00am Comment on above: Inject 200mg (1 pen) subcutaneously once weekly cephalexin 500 mg oral capsule (6 sources) Cephalosporin Antibacterial Start: 025 End: take 1 capsule by mouth in the morning cephalexin (Keflex) 500 MG capsule Indications: Cyst, breast, sebaceous, left Take 1 capsule (500 mg) by mouth in the morning and 1 capsule (500 mg) before bedtime. Do all this for 7 days. 14 capsule 06/15/2024 06/22/2024 Active Start: 01-07-2023 cephalexin (Ke flex) 500 MG capsule Indications: Postoperative stitch abscess Take 1 tablet twice a day x 7 days 14 capsule 0 01/07/2023 Active Keflex Active chlorhexidine gluconate 40 m g/ml medicated liquid soap (20 sources) Start: 07-25-2024 Chlorhexidine Gluconate (Hibiclens) 4 % solution Indications: Hidradenitis suppurativa Use every day in shower from the neck down to affected areas. 532 mL 11 07/25/2024 Active Start: 11-01-2023 End: 04-16-2024 Chlorhexidine Gluconate (Hib iclens) 4 % solution Indications: Hidradenitis suppurativa Apply [...] 118 mL 11 07/15/2023 03/16/2024 Discontinued clindamycin 10 mg/ml topical lotion (20 sources) Lincosamide Antibacterial Start: 07-25-2024 clindamycin (Cleocin T) 1 % lotion Indications: Hidradenitis suppurativa Apply thin later to affected areas on the thighs, once daily, 30 day supply 60 mL 11 07/25/2024 Active Start: 06-23-2022 End: 06-06-2024 clindamycin (Clindagel) 1 % gel Indications: Hidradenitis suppurativa APPLY TO AFFECTED AREA DAILY 75 mL 11 10/06/2023 06/06/2024 Discontinued clobetasol propionate 0.5 mg/ml medicated shampoo (20 sources) Corticosteroid Start: 10-20-2023 Clobetasol 0.0 5 % shampoo Active 1 APPLIC TOPICAL As Directed October 20, 2023 12:00am Start: 10-20-2023 Clobetasol Act kaycee TOPICAL October 20, 2023 12:00am Start: 10-23-2022 End: 07-25-2024 clobetasoL 0.05 % shampoo Ap ply topically. 1 application to the scalp in the shower topically 3-4 times a week 10/23/2022 Active clonazePAM 0.5 mg oral tablet (1 source) Benzodiazepine Start: 07-31-2024 take 1 tablet by mouth once daily Clonazepam (Klonopin) 0.5 mg tablet Active 0.5 MG PO Daily July 31, 2024 12:00am clotrimazole 10 mg oral lozenge (2 sources) [...] .CPAPSettings into a note to see current settings/supplies/D ME information. 1 Each 05/05/2022 09/19/2049 Active Start: [...] times a day as needed. 02/01/2024 Active lkrowfbillPLAZX-dtkuez-tmjqw belia (BMX 1:1:1) 1:1:1 liqd (4 sources) Start: 07-12-2024 take 5 mL by mouth every six hours as needed xbgrnaoonjOMOHQ-ugswid-nbosyejwv (BMX 1:1:1) 1:1:1 liqd Take 5 mL by mouth every 6 hours as needed. 500 mL 1 07/12/2024 Active ergocalciferol 1.25 mg oral capsule (20 sources) P r o v i t a m i n D 2 C o m p o u n d Start: 04-02-2024 End: 07-09-2024 ergocalciferol 50,000 unit capsule (VITAMIN D2, DRISDOL) Indications: Vitamin D deficiency Take 1cap by mouth twice a week x 10weeks, then once a week with food. 24 capsule 1 04/02/2024 07/09/2024 Discontinued Start: 10-20-2023 ergocalciferol 50,000 unit capsule (VITAMIN D2, DRISDOL) Indications: Vitamin D deficiency Take 1cap by mouth 3times a week x 10weeks, then once a week with food. 34 capsule 1 07/09/2024 Active Start: 10-31-2022 End: 04-02-2024 take 1 capsule by mouth every week ergocalciferol (DRISDOL) 1,250 mcg (50,000 unit) capsule Take 1 capsule (50,000 Units total) by mouth once a week. 10/20/2023 Active Start: 05-18-2022 ergocalciferol 50,000 unit capsule [...] 0 03/06/2021 Active take 1 capsule by [facility] every week ergocalciferol (Vitamin D2) 1.25 MG (25537 UT) capsule Take 50,000 Units by mouth [...] Ethinyl Estradiol / Ferrous fumarate / Norethindrone (17 sources) Estrogen Start: 4 End: 5 take 1 tablet by mouth once daily norethindrone-ethin yl estradiol-iron (Lo Loestrin Fe) 1 MG-10 MCG / 10 MCG tablet Indications: Menorrhagia with regular cycle Take 1 tablet by mouth Daily Take 1 tablet by mouth daily 28 tablet 11 03/23/2024 02/22/2025 Active famotidine 20 mg oral tablet (14 sources) Histamine-2 Receptor Antagonist Start: 4 End: 5 take 1 tablet by mouth at bedtime famotidine (Pepcid) 20 MG tablet Indications: LPRD (laryngopharyngeal reflux disease) Take 1 tablet (20 mg) by mouth at bedtime 90 tablet 04/10/2024 Active Start: 07-21-2020 End: 10-24-2021 take 1 [...] at bedtime. fidaxomicin 200 mg oral tablet (20 sources) Macrolide Antibacterial Start: End: take 1 tablet by mouth once in the morning fidaxomicin (Dificid) 200 MG tablet Indications: H/O Clostridium difficile infection Take 1 tablet (200 mg) by mouth in the morning and 1 tablet (200 mg) before bedtime. Do all this for 10 days. 20 tablet 06/15/2024 06/25/2024 Active Start: 10-20-2023 End: 12-16-2023 take 1 tablet by mouth every other day Fidaxomicin (Dificid) 200 mg tablet Discontinued 200 MG PO .every other day October 20, 2023 12:00am December 16, 2023 2:11pm Start: 10-20-2023 End: 12-16-2023 take 1 tablet by mouth every twelve hours Fidaxomicin (Dificid) 200 mg tablet Discontinued 200 MG PO Every 12 hours 20 October 20, 2023 12:00am December 16, 2023 2:11pm fludrocortisone acetate 0.1 mg oral tablet (3 sources) Start: 06-01-2023 End: 05-31-2024 take 1 tablet by mouth at bedtime fludrocortisone (Florinef) 0.1 MG tablet Indications: Autonomic dysfunction Take 1 tablet (0.1 mg) by mouth at bedtime 30 tablet 11 06/01/2023 05/31/2024 Active fluocinonide 0.5 mg/ml topical solution (20 sources) Corticosteroid Start: 07-15-2023 End: 07-25-2024 fluocinonide (Lidex) 0.05 % external solution Indications: Other seborrheic dermatitis Apply to affected areas on the scalp, up to twice a day when flared, 30 day supply 60 mL 11 07/25/2024 Active Start: 10-20-2022 Fluocinonide 0 .05 % solution Active 1 APPLIC TOPICAL Daily as needed for rash October 20, 2023 12:00am fluticasone propionate 0.05 mg/actuat metered dose nasal [...] tablet (1 mg) by mouth once daily. 01/15/2023 Active Comment on above: Take 1 tablet by ce th once daily. TAKE 1 TABLET BY CE TH EVERY DAY hydroxychloroquine sulfate 200 mg oral tablet (20 sources) Antimalarial, Antirheumatic Agent Start: 2023 take 2 tablets by mouth once daily Hydroxychloroquine 200 mg tablet Active 400 MG PO Daily October 20, 2023 12:00am Start: 10-20-2023 take 400 mg by mouth [...] (eight) hours. Active take 1 tablet by ce th every six hours as needed for pain ibuprofen (ADVIL;MOTRIN) 200 MG tablet T jaqui 200 mg by mouth every 6 hours as needed for Pain 0 Active Comment on above: Take 600 mg by mouth . 300 ml immunoglobulin g, human 100 mg/ml injection (1 source) Human Immunoglobulin G immune globulin, hum an, (Gammagard) infusion Infuse into a venous catheter 1 time. Active magnesium citrate 58.2 mg/ml oral solution (2 sources) Start: 024 [facility] Magnesium Citrate oral solution TAKE HALF OF THE BOTTLE WITH 8 OZ OF WATER, TAKE THE OTHER HALF AFTER 1 HOUR WITH 8 OZ OF WATER 0 06/27/2023 Active metoprolol tartrate 50 mg oral tablet (20 sources) beta-Adrenergic Judie Start: 025 End: 026 take 1 tablet by mouth four times daily metoprolol tartrate (Lopressor) 50 mg tablet Indications: Paroxysmal supraventricular tachycardia (CMS-HCC) , Essential hypertension Take 1 tablet by mouth 4 times a day. 360 tablet 3 07/26/2024 07/26/2025 Active Start: 10-20-2023 take 4 tablets by [facility] once daily Metoprolol Tartrate 50 mg tablet Active 200 MG PO Daily October 20, 2023 12:00am Start: 10-20-2023 take 200 mg by mouth once ankur y Metoprolol Tartrate Active 200 MG PO Daily October 20, 2023 12:00am Start: 10-20-2023 take 50 mg by mouth once daily Metoprolol Tartrate Active 50 MG PO Daily October 20, 2023 12:00am Start: 05-25-2022 End: 07-26-2024 metoprolol tartrate, short a cting, (LOPRESSOR) 50 mg tablet Take 100 mg by mouth two times a day. 05/25/2022 Active Start: 05-25-2022 [facility] metoprolol tartrate, short acting, (LOPRESSOR) [...] Discontinued Start: 01-19-2022 take 1 capsule by [facility] once daily naltrexone capsule 1 mg TAKE ONE CAPSULE BY MOUTH DAILY 0 01/19/2022 Active Comment on above: TAKE ONE CAPSULE BY MOUTH DAILY nitroglycerin 0.4 mg sublingual tablet (20 sources) Nitrate Vasodilator Start: 1 End: 3 nitroglycerin sublingual (NITROQUICK) 0.4 mg SL tablet Dissolve 0.4 mg under the tongue. 0 10/07/2020 07/25/2022 Discontinued Comment on above: Dissolve 0.4 mg unde r the tongue. nystatin 185943 unt/ml oral suspension (20 sources) Polyene Antifungal Start: take 1 mL by mouth once daily Nystatin 100,000 unit/mL suspension Active 1 ML PO Daily July 31, 2024 12:00am swish and swallow Start: 07-25-2024 End: 08-08-2024 nystatin (Mycostatin) 893151 UNIT/ML suspension Indications: Rash and other nonspecific skin eruption Take 4 mL (400,000 Units) by mouth in the morning and 4 mL (400,000 Units) at noon and 4 mL (400,000 Units) in the evening and 4 mL (400,000 Units) before bedtime. Do all this for 14 days. 224 mL 07/25/2024 08/08/2024 Active Start: 01-27-2024 End: 02-03-2024 nystatin (MYCOSTATIN) 100,00 0 unit/mL suspension Take 5 mL by mouth four times daily for 7 days. SWISH AND SWALLOW 1 TEASPOON(S) (5ML) 4 TIMES PER DAY. 140 mL 01/27/2024 02/03/2024 Active Start: 01-15-2023 nystatin (Myco statin) cream Indications: Candidiasis of skin Apply to left armpit BID until clear 15 g 01/15/2023 Active ondansetron 4 mg disintegrating oral tablet (2 sources) Serotonin-3 Receptor Antagonist Start: 06-27-2023 take 1 tablet by mouth every six hours as needed for nausea and vomiting ondansetron ODT (Zofran-ODT) 4 MG disintegrating tablet DISSOLVE 1 TABLET IN MOUTH EVERY 6 HOURS NEEDED FOR NAUSEA AND VOMITING 0 06/27/2023 Active pantoprazole 20 mg delayed release oral tablet (20 sources) Proton Pump Inhibitor Start: 07-19-2024 take 1 tablet by mouth once daily Pantoprazole 20 mg tablet,delayed release (DR/EC) Active 20 MG PO Daily July 19, 2024 1:00am Start: 01-26-2024 End: 03-16-2024 take 1 tablet by mouth once daily pantoprazole (ProtoNix) 40 MG EC tablet Take 40 mg by mouth Daily 01/26/2024 03/16/2024 Discontinued Start: 09-22-2023 End: 10-20-2023 take 1 tablet by mouth once daily Pantoprazole 40 mg tablet,delayed release (DR/EC) Discontinued 40 MG PO Daily September 22, 2023 12:00am October 20, 2023 1:07pm Take 1 tablet orally once a day. phentermine hydrochloride 37.5 mg oral tablet (20 sources) Sympathomimetic Amine Anorectic Start: 04-26-2023 End: 03-16-2024 take 1 tablet by mouth before mealtime phentermine (Adipex-P) 37.5 MG tablet Take 37.5 mg by mouth in the morning. Take before meals. 05/26/2023 Active Comment on above: Take 1 tablet by ce th daily before breakfast for 30 days. Take 1 tablet by ce th daily before breakfast for 90 days. pilocarpine hydrochloride 5 mg oral tablet (5 sources) Cholinergic Receptor Agonist Start: 07-12-2024 End: 09-06-2024 take 1 tablet by mouth three times daily pilocarpine (SALAGEN) 5 mg tablet TAKE 1 TABLET BY MOUTH THREE TIMES A DAY 135 tablet 1 08/07/2024 09/06/2024 Active predniSONE 10 mg oral tablet (20 sources) Start: 06-22-2024 predniSONE (DELTASONE) 10 mg tablet Indications: Other systemic lupus erythematosus with other organ involvement (HCC) Take 40mg daily x 3, decrease by 5mg every 3days until taking 10mg daily with food thereafter (no oral nsaids) 120 tablet 1 06/22/2024 Active Start: 03-17-2024 take 1 tablet by ce once daily at mealtime predniSONE (DELTASONE) 10 [...] 120 tablet 1 01/12/2024 03/17/2024 Discontinued Start: 05-12-2023 End: 01-12-2024 take 1 tablet by mouth once daily at mealtime predniSONE (DELTASONE) 10 mg tablet Indications: Other systemic lupus erythematosus with other organ involvement (HCC) TAKE 1 TABLET BY MOUTH EVERY DAY WITH FOOD NO ORAL NSAIDS 30 tablet 5 03/17/2024 Active Start: 05-12-2023 End: 10-05-2023 predniSONE (DELTASONE) 10 mg tablet Indications: Other systemic lupus erythematosus with other organ involvement (HCC) Take 40mg daily x 5days, then decrease 5mg every 5days until 10mg daily thereafter 120 tablet 1 05/12/2023 10/05/2023 Discontinued Start: 08-17-2022 predniSONE (DE LTASONE) 10 mg [...] (20 sources) Calcineurin Inhibitor Immunosuppressant Start: 08-16-2023 End: 07-25-2024 tacrolimus (Protopic) 0.1 % ointment Indications: Lupus erythematosus tumidus (CMS/HCC) Apply to affected area on forehead bid prn flares, hold if clear 30 g 11 07/25/2024 Active Start: 08-16-2023 tacrolimus (ME OTOPIC) 0.1 % ointment Apply 1 Application [...] topical lotion (20 sources) Corticosteroid Start: 06-23-2022 triamcinolone acetonide 0.025 % lotion 1 Application. 06/23/2022 Active triamcinolone ac etonide (KENALOG) 0.025 % lotion Apply 1 Application topically as needed. Active Vitamin D 50 MCG (1999) (4 sources) take 1 tablet by ce th every week Vitamin D 50 MCG (1999) 1 tablet Orally weekly Active Completed/Discontinued Medications Medication Drug Class(es) Dates Sig (Normalized) Sig (Original) acetaminophen 325 mg oral tablet (20 sources) Start: 07-11-2024 End: 07-11-2024 take 1 dose by mouth once, then take 4000 mg by mouth once daily 650 mg, ORAL, ONCE, 1 dose, On Wed07/11/24 at 0900, No more than 4000 mg of acetaminophen should be given per day (FROM ALL SOURCES) Start: 06-13-2024 End: 06-13-2024 take 1 dose by mouth once, then take 4000 mg by mouth once daily 650 mg, ORAL, ONCE, 1 dose, On Wed06/13/24 at 1000, No more than 4000 mg of acetaminophen should be given per day (FROM ALL SOURCES) Start: 05-19-2024 End: 05-19-2024 take 1 dose by mouth once, then take 4000 mg by mouth once daily 650 mg, ORAL, ONCE, 1 dose, On Wed05/19/24 at 1000, No more than 4000 mg of acetaminophen should be given per day (FROM ALL SOURCES) acetaminophen (T YLENOL) 500 mg tablet Take 1,000 mg by mouth. Active acetaminophen (T ylenol) 325 MG tablet every 4 (four) hours. Active take 1 tablet by ce th every six hours as needed acetaminophen (TYLENOL) 325 mg tablet Take 1 [...] Take 400 mg by mouth once daily. ALPRAZolam 0.25 mg oral tablet (20 sources) Benzodiazepine Start: 06-24-19 End: 08-01-19 take 1 tablet by mouth once daily as needed for anxiety Alprazolam 0.25 mg tablet Discontinued 0.25 MG PO Daily as needed for anxiety October 20, 2023 12:00am July 31, 2024 4:04pm amLODIPine 5 mg oral tablet (8 sources) Dihydropyridine Calcium Channel Judie Start: 02-03-20 End: 03-16-20 take 1 tablet by mouth once daily [...] Discontinued dicyclomine hydrochloride 10 mg oral capsule (17 sources) Anticholinergic Start: 4 End: take 1 capsule by mouth in [...] capsule by mouth twice daily as needed for pain Dicyclomine 10 mg capsule Discontinued 10 MG PO Twice daily as needed for abdominal pain 60 September 22, 2023 12:00am October 20, 2023 1:07pm Take 1 capsule orally twice a day prn diphenhydrAMINE (3 sources) Histamine-1 Receptor Antagonist Start: 07-11-2024 End: 07-11-2024 25 mg, INTRAVENOUS, ONCE, 1 dose, On Wed07/11/24 at 0900 Start: 06-13-2024 End: 06-13-2024 25 mg, INTRAVENOUS, ONCE, 1 dose, On Wed06/13/24 at 1000 Start: 05-19-2024 End: 05-19-2024 25 mg, INTRAVENOUS, [...] Comment on above: Take 1 capsule by [facility] once daily. gentamicin 0.001 mg/mg topical ointment (8 sources) Start: 11-22-2023 End: 12-16-2023 Gentamicin 0.1 % ointment Discontinued 1 APPLIC TOPICAL Three times daily 15 November 22, 2023 12:00am December 16, 2023 2:12pm hydrocortisone 100 mg injection (3 sources) Corticosteroid Start: 07-11-2024 End: 07-11-2024 50 mg, INTRAVENOUS, ONCE, 1 dose, On Wed07/11/24 at 0900 Start: 06-13-2024 End: 06-13-2024 50 mg, INTRAVENOUS, ONCE, 1 dose, On Wed06/13/24 at 1000 Start: 05-19-2024 End: 05-19-2024 50 mg, INTRAVENOUS, ONCE, 1 dose, On Wed05/19/24 at 1000 immune globulin (human) (IgG ) 35 g in empty bag Total Volume 350 mL (GAMMAGARD) (3 sources) Start: 07-11-2024 End: 07-11-2024 35 g (rounded from 34.72 g = 0.4 g/kg/dose 86.8 kg Treatment plan adjusted weight), INTRAVENOUS, ONCE, 1 dose, On Wed07/11/24 at 0930, EXP: Refrigerate - Prepared as a 10% solution - Brand: Lot: Total Volume., Infusion regimen: Standard, Starting rate (mL/kg/hr): 0.5 mL/kg/hr, Rate after 30 min (mL/kg/hr): 1 mL/kg/hr, Titration rate/max: Increase by 1 mL/kg/hr every 30 minutes thereafter to a max of 5 mL/kg/hr unless signs or symptoms of reaction Start: 06-13-2024 End: 06-13-2024 35 g (rounded from 34.72 g = 0.4 g/kg/dose 86.8 kg Treatment plan adjusted weight), INTRAVENOUS, ONCE, 1 dose, On Wed06/13/24 at 1030, EXP: Refrigerate - Prepared as a 10% solution - Brand: Lot: Total Volume., Infusion regimen: Standard, Starting rate (mL/kg/hr): 0.5 mL/kg/hr, Rate after 30 min (mL/kg/hr): 1 mL/kg/hr, Titration rate/max: Increase by 1 mL/kg/hr every 30 minutes thereafter to a max of 5 mL/kg/hr unless signs or symptoms of reaction Start: 05-19-2024 End: 05-19-2024 35 g (rounded [...] for 5 days 5 capsule 04/03/2024 04/08/2024 omeprazole 40 mg delayed release oral capsule (17 sources) Proton Pump Inhibitor Start: 03-16-2024 End: 07-19-2024 take 1 capsule by mouth once daily Omeprazole 40 mg capsule,delayed release(DR/EC) Discontinued 40 MG PO Daily March 16, 2024 12:00am July 19, 2024 10:52am Start: 08-09-2020 End: 02-25-2022 take 1 capsule by mouth twice daily omeprazole (PRILOSEC) 40 mg capsule Indications: Gastroesophageal reflux disease, unspecified whether esophagitis present Take 1 capsule by mouth twice daily. 30 capsule 2 08/09/2020 02/25/2022 Discontinued (Course of therapy completed) take 2 capsules by [facility] once daily omeprazole (PRILOSEC) 20 MG delayed release capsule Take 40 mg by mouth daily 0 Active Comment on above: Take 1 capsule by mo [facility] twice daily. pravastatin sodium 20 mg oral tablet (19 sources) HMG-CoA Reductase Inhibitor Start: End: take 1 tablet by mouth once daily pravastatin (Pravachol) 20 MG tablet Take 20 mg by mouth Daily 01/26/2024 03/16/2024 Discontinued Start: 10-20-2023 End: 10-20-2023 take 1 tablet by mouth once daily Pravastatin 20 mg tablet Discontinued 20 MG PO Daily October 20, 2023 12:00am October 20, 2023 1:08pm Start: 06-24-2023 [facility] pravastatin (Pravachol) 20 MG tablet [...] 2 12/15/2023 03/16/2024 Discontinued Start: 10-20-2023 take 3 capsules by m out once daily as needed for pain Pregabalin 75 mg capsule Active 225 MG PO Daily as needed for nerve pain October 20, 2023 12:00am Start: 10-20-2023 take 225 mg by mouth once ankur y Pregabalin Active 225 MG PO Daily October 20, 2023 12:00am Start: 07-06-2023 take 1 capsule by [facility] three times daily pregabalin (Lyrica) 100 MG [...] on above: Take 1 tablet by ce once daily. rivaroxaban 15 mg oral tablet [...] Discontinued vitamin b12 1 mg/ml injectable solution (12 sources) Vitamin B12 Start: 07-11-19 End: 07-11-19 inject 1 dose by intramuscular injection once 1,000 mcg, INTRAMUSCULAR, ONCE, 1 dose, On Wed07/11/24 at 0900 Start: 06-13-2024 End: 06-13-2024 inject 1 dose by intramuscular injection once 1,000 mcg, INTRAMUSCULAR, ONCE, 1 dose, On Wed06/13/24 at 1000 Start: 04-26-2024 End: 04-26-2024 inject 1 dose by intramuscular injection once 1,000 mcg, INTRAMUSCULAR, ONCE, 1 dose, On Wed04/26/24 at 0930 Start: 03-23-2024 End: 03-23-2024 inject 1 dose by intramuscular injection once 1,000 mcg, INTRAMUSCULAR, ONCE, 1 dose, On Dlemi 03/23/24 at 1030 Start: 02-21-2024 End: 02-21-2024 inject 1 dose by intramuscular injection once 1,000 mcg, INTRAMUSCULAR, ONCE, 1 dose, On Wed02/21/24 at 1100 Start: 01-25-2024 End: 01-25-2024 inject 1 dose by intramuscular injection once 1,000 mcg, INTRAMUSCULAR, ONCE, 1 dose, On Wed01/25/24 at 1130 Start: 08-06-2024 inject 1 mL by subcu taneous injection [...] Date Documented Da te Episodic/Chronic Abdominal pain (20 sources) Finding of sensation of abdomen; Translations: [Unspecified abdominal pain] 09-22-2023 Episodic Anxiety disorders (20 sources) Anxiety; Translations: [Anxiety disorder, unspecified] Onset: 4 06-09-2023 Chronic Bacterial infection; unspecified site (3 sources) Bacterial infection due to Pseudomonas; Translations: [Other bacterial infections of unspecified site] Onset: 5 01-27-2024 Episodic Cardiac dysrhythmias (20 sources) Postural orthostatic tachycardia syndrome ; Translations: [POTS (postural orthostatic tachycardia syndrome)] Onset: 4 Chronic Cardiac dysrhythmias (20 sources) Tachycardia, unspecified; Translations: [Tachycardia] Onset: 2 Resolved: 5 Episodic Deficiency and other anemia (5 sources) Anemia of chronic disease; Translations: [Anemia in other chronic diseases classified elsewhere] Chronic Deficiency and other anemia (1 source) Anemia in other chronic diseases classified elsewhere; Translations: [Anemia of chronic disease] Onset: 5 Chronic Deficiency and other anemia (12 sources) Iron deficiency anemia; Translations: [Other iron deficiency anemias] Onset: 5 06-16-2024 Episodic Disorders of lipid metabolism (20 sources) Hyperlipidemia; Translations: [Hyperlipidemia, unspecified] Onset: 5 05-31-2014 Chronic Esophageal disorders (20 sources) Laryngopharyngeal reflux; Translations: [Gastro-esophageal reflux disease without esophagitis] Onset: 4 07-06-2023 Chronic Essential hypertension (20 sources) Essential hypertension; Translations: [Essential (primary) hypertension] Onset: 4 06-09-2023 Chronic Fever of unknown origin (1 source) Pyrexia of unknown origin; Translations: [Fever, unspecified] 04-26-2023 Episodic Immunity disorders (20 sources) Hypogammaglobulinemia; 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] Onset: 4 04-01-2024 Chronic Intestinal infection (20 sources) Clostridium difficile diarrhea; Translations: [Enterocolitis due to Clostridium difficile, not specified as recurrent] 09-22-2023 Episodic Malaise and fatigue (20 sources) Malaise and fatigue; Translations: [Chronic fatigue, unspecified] Onset: 4 Chronic Malaise and fatigue (1 source) Malaise and fatigue; Translations: [Other malaise] 06-13-2024 Episodic Menstrual disorders (20 sources) Excessive and frequent menstruation with irregular cycle; Translations: [Menometrorrhagia] Onset: 3 Chronic Mood disorders (20 sources) Recurrent depression; Translations: [Major depressive disorder, recurrent, unspecified] Onset: 4 06-18-2014 Chronic Mycoses (3 sources) Candidiasis of mouth; Translations: [Candidal stomatitis] 04-02-2024 Episodic Neoplasms of unspecified nature or uncertain behavior (2 sources) Neoplasm of uncertain behavior of skin; Translations: [Neoplasm of uncertain behavior of skin] 07-25-2024 Episodic Nonmalignant breast conditions (7 sources) Mammary duct ectasia; 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] 12-16-2023 Chronic Nonmalignant breast conditions (20 sources) Discharge from nipple; Translations: [Nipple discharge] Onset: 4 12-16-2023 Episodic Nutritional deficiencies (20 sources) Vitamin D deficiency; Translations: [Vitamin D deficiency, unspecified] Onset: 1 Chronic Osteoarthritis (20 sources) Degenerative joint disease involving multiple joints; 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] Onset: 1 Chronic Osteoporosis (20 sources) 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; Translations: [Other osteoporosis without current pathological fracture] Onset: 3 02-04-2023 Chronic Other aftercare (3 sources) Drug therapy status; Translations: [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] Episodic Other aftercare (1 source) Polypharmacy ; Translations: [Other hand bookbinder (current) drug therapy] Episodic Other aftercare (1 source) Long-term 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 drug therapy; Translations: [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 correction 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] 11-11-2023 Episodic Other circulatory disease (20 sources) Raynaud's disease; Translations: [Raynaud's syndrome without gangrene] Onset: 3 02-04-2023 Chronic Other circulatory disease (2 sources) Spider nevus; Translations: [Nevus, non-neoplastic] 07-25-2024 Episodic Other congenital anomalies (1 source) Peter-Danlos syndrome; [...] [Pain in right hand] 10-05-2023 Episodic Other ear and sense organ disorders (2 sources) Pain of ear structure; Translations: [Otalgia, right ear] 04-10-2024 Episodic Other female genital disorders (2 sources) Abnormal uterine bleeding; Translations: [Abnormal uterine and vaginal bleeding, unspecified] 03-23-2024 Chronic Other gastrointestinal disorders (11 sources) Diarrhea; Translations: [Diarrhea, unspecified] 09-22-2023 Episodic [...] lupus erythematosus] Onset: 4 04-06-2024 Chronic Other inflammatory condition of skin (2 sources) Lupus erythematosus tumidus; 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] 07-25-2024 Chronic Other inflammatory condition of skin (2 sources) Seborrheic dermatitis; Translations: [Other seborrheic dermatitis] 07-25-2024 Episodic Other injuries and conditions due to external causes (1 source) Delayed healing of wound; Translations: [Other injury of unspecified body region, subsequent encounter] Episodic Other lower respiratory disease (2 sources) Snoring; Translations: [Snoring] Episodic Other lower respiratory disease (20 sources) Dyspnea; Translations: [Shortness of breath] Onset: 4 07-13-2023 Episodic Other nervous system disorders (20 sources) Chronic pain syndrome; Translations: [Chronic pain syndrome] Onset: 4 06-18-2014 Chronic Other nervous system disorders (9 sources) Chronic pain; Translations: [Other chronic pain] 04-26-2023 Chronic Other nervous system disorders (20 sources) Disorder of autonomic nervous system; Translations: [Disorder of the autonomic nervous system, unspecified] Onset: 4 06-09-2023 Chronic Other nervous system disorders (11 sources) Other chronic pain; Translations: [Other chronic pain] Onset: 4 01-28-2024 Chronic Other nervous system disorders (1 source) Numbness; Translations: [Anesthesia of skin] 02-07-2024 Episodic Other nervous system disorders (4 sources) Cold [...] Chronic Other nutritional; endocrine; and metabolic disorders (11 sources) Insulin resistance; Translations: [Insulin resistance, unspecified] 03-10-2023 Chronic Other nutritional; endocrine; and metabolic disorders (2 sources) Morbid obesity; Translations: [Morbid (severe) obesity due to excess calories] 07-13-2023 Chronic Other nutritional; endocrine; and metabolic disorders (2 sources) Morbid (severe) obesity due to excess calories; Translations: [Morbid (severe) obesity due to excess calories (Multi)] Onset: 4 Chronic Other screening for suspected conditions (not mental disorders or infectious disease) (20 sources) Elevated C-reactive protein; Translations: [Elevated C-reactive protein (CRP)] Onset: 2 Episodic Other skin disorders (2 sources) Hidradenitis suppurativa; Translations: [Hidradenitis suppurativa] 07-25-2024 Episodic Other upper respiratory disease (20 sources) [...] sources) Obstructive sleep apnea (adult) (pediatric); Translations: [JOSE RAFAEL (obstructive sleep apnea)] Onset: 4 Chronic Residual codes; unclassified (1 [...] limb edema; Translations: [Localized edema] 07-13-2023 Episodic Residual codes; unclassified (1 source) Finding of mouth region; Translations: [Unspecified symptoms and signs involving general sensations and perceptions] 07-12-2024 Episodic Rheumatoid arthritis and related disease (3 [...] Translations: [Supraventricular tachycardia, unspecified (CMS-HCC)] Onset: 4 Past or Other Problems Problem [...] Onset: 03-04-2022 Episodic Diabetes mellitus without complication (16 sources) Increased glucose level; Translations: [Other abnormal [...] (20 sources) Drug therapy finding; Translations: [Other hand bookbinder (current) drug therapy] Onset: 03-05-2021 Episodic Other aftercare (20 sources) H/O: high risk medication; Translations: [Other correction (current) drug therapy] Onset: 06-15-2022 06-15-2022 Episodic Other aftercare (1 source) Other correction (current) drug therapy; Translations: [OTH CUSTODIAL 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 THERAPY] Onset: 03-23-2022 Episodic Other aftercare (20 sources) Long-term 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 systemic steroid; Translations: [correction (current) use of 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] Onset: 02-04-2023 [...] unspecified site] Onset: 07-06-2023 07-06-2023 Episodic Other connective tissue disease (2 sources) Pain in lower limb; Translations: [Pain in leg, unspecified] 04-06-2024 Episodic Other hematologic conditions (20 sources) ESR raised; Translations: [Elevated erythrocyte sedimentation rate] Onset: 03-05-2021 Episodic Other hematologic conditions (9 sources) Elevated erythrocyte sedimentation rate; Translations: [ELEVATED ERYTHROCYTE SED RATE] Onset: 03-05-2021 Resolved: 11-26-2021 Episodic Other infections; including parasitic (20 sources) Disorder due to infection; Translations: [Personal history of other infectious and parasitic diseases] Onset: 04-01-2024 04-01-2024 Episodic Other infections; including parasitic (1 source) Personal history of other infectious and parasitic diseases; Translations: [Frequent infections] Onset: 04-01-2024 Episodic Other injuries and conditions due to external causes (3 sources) Unspecified injury of right lower leg, initial encounter; Translations: [UNS INJURY RT LOWER LEG INITIAL ENC] Onset: 03-21-2022 Episodic Other lower respiratory disease (1 source) [...] sciatica, left side] Onset: 05-31-2014 Episodic Unclassified (2 sources) Onset: 07-13-2023 Resolved: 12-24-2023 07-13-2023 Unclassified (1 source) Supraventricular tachycardia, unspecified (CMS-HCC); Translations: [Supraventricular tachycardia, unspecified (CMS-HCC)] Onset: 12-24-2023 Viral infection (20 sources) Cytomegaloviral disease, unspecified; 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] Onset: 09-11-2021 Resolved: 11-26-2021 Episodic Results Test Name Value Interpretation Reference Range Facility HCG ( test) IA.rapi d Ql (U)Ordered By: Adolfo Kang on 07-19-2024 HCG ( test) Ql (U) Urine human chorionic gonadotropin (hCG) detection by immunoassay [facility] HCG,Urineon 07-19-2024 Beta HCG ( test) Ql (U) Negative Normal [facility] Comment on above: Result Comment: PERF ORMED BY: [place] [address] PATHOLOGIST [employer]ERIAL[employer] HANDLING EQUIPMENT OPERATOR HAYDEN LLAMAS M.D. Performed By: #### U HCG #### [address] CNOVon 07-12-2024 CNOV Normal [facility] CNPNon 07-09-2024 CNPN Normal [facility] 25(OH)D3 SerPl-mCncon 2024 25-hydroxyvitamin D3 [Mass/Vol] 28.5 ng/mL Low 31.0-80.0 [facility] Comment on above: Order Comment: Speci men Type: BLOOD SPECIMENOrdering Facility: [facility] Address: [address] [place] [address] Result Comment: Clas sification of 25 [place] Vitamin D status:Deficiency/Insufficiency: < or = 30 ng/ml.Sufficiency/Optimal Levels: 31-80 ng/mLToxicity: > 100 ng/mL.Test performed by chemiluminescent immunoassay. Performed By: #### 1 989-3 ####[facility] LABCLIA [id number] [facility] [address] [address] [place] CBC panel Auto (Bld)on 06-30 Erythrocyte distribution width (RBC) [Ratio] 14.3 % Normal 11.5-15.0 [facility] Comment on above: Order Comment: Speci men Type: BLOOD SPECIMENOrdering Facility: [facility] Address: [address] [place] [address] Performed By: #### 5 8410-2 ####[facility]ITAL[facility] [id number] [place] [id number] [place] Hematocrit (Bld) [Volume fraction] 41.3 % Normal 36.0-46.0 [facility] Comment on above: Order Comment: Speci men Type: BLOOD SPECIMENOrdering Facility: [facility] Address: [address] [place] [address] Performed By: #### 5 8410-2 ####[facility] [id number] [place] [id number] [place] Hemoglobin (Bld) [Mass/Vol] 13.5 g/dL Normal 11.5-15.5 [facility] Comment on above: Order Comment: Speci men Type: BLOOD SPECIMENOrdering Facility: [facility] Address: [address] [place] [address] Performed By: #### 5 8410-2 ####[facility] LABIA [id number] [place] [id number] [place] MCH (RBC) [Entitic mass] 30.4 pg Normal 26.0-34.0 [facility] Comment on above: Order Comment: Speci men Type: BLOOD SPECIMENOrdering Facility: [facility] Address: [address] [place] [address] Performed By: #### 5 8410-2 ####[facility] LABIA [id number] [place] [address] [place] MCHC (RBC) [Mass/Vol] 32.7 g/dL Normal 30.5-36.0 [facility] Comment on above: Order Comment: Speci men Type: BLOOD SPECIMENOrdering Facility: [facility] Address: [address] [place] [address] Performed By: #### 5 8410-2 ####[facility] LABIA [id number] [place] [address] [place] MCV (RBC) [Entitic vol] 93.0 fL Normal 80.0-100.0 [facility] Comment on above: Order Comment: Speci men Type: BLOOD SPECIMENOrdering Facility: [facility] Address: [address] [place] [address] Performed By: #### 5 8410-2 ####[facility] LABIA [id number] [place] [address] [place] Nucleated RBC (Bld) [#/Vol] 10*3/uL Normal <0.01 [facility] Comment on above: Order Comment: Speci men Type: BLOOD SPECIMENOrdering Facility: [facility] Address: [address] [place] [address] Performed By: #### 5 8410-2 ####[facility] LABIA [id number] [place] [address] [place] Platelet mean volume (Bld) [Entitic vol] 9.8 fL Normal 9.0-12.7 [facility] Comment on above: Order Comment: Speci men Type: BLOOD SPECIMENOrdering Facility: [facility] Address: [address] [place] [address] Performed By: #### 5 8410-2 ####[facility] LABIA [id number] [place] [address] [place] Platelets (Bld) [#/Vol] 341 10*3/uL Normal 150-400 [facility] Comment on above: Order Comment: Speci men Type: BLOOD SPECIMENOrdering Facility: [facility] Address: [address] [place] [address] Performed By: #### 5 8410-2 ####[facility] LABCLIA [id number] [place] [address] [place] RBC (Bld) [#/Vol] 4.44 10*6/uL Normal 3.90-5.20 [facility] Comment on above: Order Comment: Speci men Type: BLOOD SPECIMENOrdering Facility: [facility] Address: [address] [place] [address] Performed By: #### 5 8410-2 ####[facility] LABCLIA [id number] [place] [address] [place] WBC (Bld) [#/Vol] 12.66 10*3/uL High 3.70-11.00 [facility] Comment on above: Order Comment: Speci men Type: BLOOD SPECIMENOrdering Facility: [facility] Address: [address] [place] [address] Performed By: #### 5 8410-2 ####[facility] LABIA [id number] [place] [id number] [place] CRP SerPl-mCncon 06-30-2024 CRP [Mass/Vol] 0.1 mg/dL Normal <0.9 [facility] Comment on above: Order Comment: Speci men Type: BLOOD SPECIMENOrdering Facility: [facility] Address: [address] [place] [address] Performed By: #### 2 4323-8, 1987-09 ####[facility] LABIA [id number] [place] [address] [place] [facility] Comprehensive metabolic 2000 panelon 06-30-2024 Albumin [Mass/Vol] 4.0 g/dL Normal 3.9-4.9 [facility] Comment on above: Order Comment: Speci men Type: BLOOD SPECIMENOrdering Facility: [facility] Address: [address] [place] [address] Performed By: #### 2 4323-8, 1987-09 ####[facility] LABCLIA [id number] [place] [address] [place] ALP [Catalytic activity/Vol] 52 U/L Normal 34-123 [facility] Comment on above: Order Comment: Speci men Type: BLOOD SPECIMENOrdering Facility: [facility] Address: [address] [place] [address] Performed By: #### 2 4322-12, 1987-09 ####[facility] LABCLIA [id number] [place] [address] [place] ALT [Catalytic activity/Vol] 26 U/L Normal 7-38 [facility] Comment on above: Order Comment: Speci men Type: BLOOD SPECIMENOrdering Facility: [facility] Address: [address] [place] [address] Performed By: #### 2 4322-12, 1987-09 ####[facility] LABCLIA [id number] [place] [address] [place] Anion gap [Moles/Vol] 10 mmol/L Normal 8-15 [facility] Comment on above: Order Comment: Speci men Type: BLOOD SPECIMENOrdering Facility: [facility] Address: [address] [place] [address] Performed By: #### 2 4322-12, 1987-09 ####[facility] LABCLIA [id number] [place] [address] [place] AST [Catalytic activity/Vol] 12 U/L Low 13-35 [facility] Comment on above: Order Comment: Speci men Type: BLOOD SPECIMENOrdering Facility: [facility] Address: [address] [place] [id number] Performed By: #### 2 4322-12, 1987-09 ####[facility] LABCLIA [id number] [place] [address] [place] Bilirubin [Mass/Vol] 0.3 mg/dL Normal 0.2-1.3 [facility] Comment on above: Order Comment: Speci men Type: BLOOD SPECIMENOrdering Facility: [facility] Address: [address] [place] [address] Performed By: #### 2 4322-12, 1987-09 ####[facility] LABCLIA [id number] [place] [address] [place] Calcium [Mass/Vol] 9.5 mg/dL Normal 8.5-10.2 [facility] Comment on above: Order Comment: Speci men Type: BLOOD SPECIMENOrdering Facility: [facility] Address: [address] [place], [place] [address] Performed By: #### 2 4322-12, 1987-09 ####[facility] LABCLIA [id number] [place] [address] [place] Chloride [Moles/Vol] 103 mmol/L Normal 98-107 [facility] Comment on above: Order Comment: Speci men Type: BLOOD SPECIMENOrdering Facility: [facility] Address: [address] [place], [place] [address] Performed By: #### 2 4322-12, 1987-09 ####[facility] LABCLIA [id number] [place] [address] [place] CO2 [Moles/Vol] 27 mmol/L Normal 22-30 [facility] Comment on above: Order Comment: Speci men Type: BLOOD SPECIMENOrdering Facility: [facility] Address: [address] [place], [place] [address] Performed By: #### 2 4322-12, 1987-09 ####[facility] LABCLIA [id number] [place] [address] [place] Creatinine [Mass/Vol] 0.78 mg/dL Normal 0.58-0.96 [facility] Comment on above: Order Comment: Speci men Type: BLOOD SPECIMENOrdering Facility: [facility] Address: [address] [place] [address] Performed By: #### 2 4322-12, 1987-09 ####[facility] LABCLIA [id number] [place] [address] [place] Creatinine and Glomerular filtration rate.predicted panel (S/P/Bld) 97 mL/min/1.73m??? Normal >=60 [facility] Comment on above: Order Comment: Semaj cortés Type: BLOOD SPECIMENOrdering Facility: [facility] Address: [address] [place] [address] Result Comment: Erin mated Glomerular Filtration Rate [...] reflect actual GFR. Performed By: #### 2 43207-29, 1987-09 ####[facility] LABIA [id number] [place] [id number] [place] Glucose [Mass/Vol] 116 mg/dL High 74-99 [facility] Comment on above: Order Comment: Seamj cortés Type: BLOOD SPECIMENOrdering Facility: [facility] Address: [address] [place] [address] Result Comment: The [place] Diabetes Association (ADA) provides guidance for cutoff [...] Standards of Medical Care in Diabetes 2016, [place] [employer]. Diabetes Care. 2016.39(Suppl 1). Performed By: #### 2 4323, 1987-09 ####[facility] LABIA [id number] [place] [id number] [place] Potassium [Moles/Vol] 3.8 mmol/L Normal 3.7-5.1 [facility] Comment on above: Order Comment: Speci men Type: BLOOD SPECIMENOrdering Facility: [facility] Address: [address] [id number] Performed By: #### 2 43238, 1987-09 ####[facility] LABCLIA [id number] [place] [address] [place] Protein [Mass/Vol] 7.6 g/dL Normal 6.3-8.0 [facility] Comment on above: Order Comment: Speci men Type: BLOOD SPECIMENOrdering Facility: [facility] Address: [address] [place] [address] Performed By: #### 2 4328, 1987-09 ####[facility] LABCLIA [id number] [place] [address] [place] Sodium [Moles/Vol] 140 mmol/L Normal 136-144 [facility] Comment on above: Order Comment: Speci men Type: BLOOD SPECIMENOrdering Facility: [facility] Address: [address] [place] [address] Performed By: #### 2 4328, 1987-09 ####[facility] LABCLIA [id number] [place] [address] [place] Urea nitrogen [Mass/Vol] 18 mg/dL Normal 7-21 [facility] Comment on above: Order Comment: Speci men Type: BLOOD SPECIMENOrdering Facility: [facility] Address: [address] [place] [address] Performed By: #### 2 43238, 1987-09 ####[facility] LABCLIA [id number] [place] [address] [place] ESR Westergren method (Bld) [Velocity]on 06-30-2024 ESR (Bld) [Velocity] 28 mm/h High 0-20 [facility] Comment on above: Order Comment: Speci men Type: BLOOD SPECIMENOrdering Facility: [facility] Address: [address] [place] [address] Performed By: #### 4 537-7 ####[facility] LABCLIA [id number] [address] [address] [place] CNPNon 06-16-2024 CNPN Normal [facility] ALLIED HEALTHon 06-13-2024 ALLIED HEALTH Normal [facility] CBC W Auto Differential pane l (Bld)on 06-13-2024 Basophils (Bld) [#/Vol] 0.10 10*3/uL [facility] Basophils/100 WBC (Bld) 0.7 % [facility] Differential cell count method Nom (Bld) Auto [facility] Eosinophils (Bld) [#/Vol] 0.15 10*3/uL [facility] Eosinophils/100 WBC (Bld) 1.1 % [facility] Erythrocyte distribution width (RBC) [Ratio] 14.2 % 11.5 - 15.0 % [facility] Hematocrit (Bld) [Volume fraction] 39.0 % 36.0 - 46.0 % [facility] Hemoglobin (Bld) [Mass/Vol] 13.0 g/dL 11.5 - 15.5 g/dL [facility] Immature granulocytes (Bld) [#/Vol] 0.21 10*3/uL High [facility] Immature granulocytes/100 WBC (Bld) 1.5 % [facility] Interpretation and review of laboratory results Abnormal [facility] Lymphocytes (Bld) [#/Vol] 2.16 10*3/uL [facility] Lymphocytes/100 WBC (Bld) 15.4 % [facility] MCH (RBC) [Entitic mass] 30.5 pg 26.0 - 34.0 pg [facility] MCHC (RBC) [Mass/Vol] 33.3 g/dL 30.5 - 36.0 g/dL [facility] MCV (RBC) [Entitic vol] 91.5 fL 80.0 - 100.0 fL [facility] Monocytes (Bld) [#/Vol] 0.79 10*3/uL [facility] Monocytes/100 WBC (Bld) 5.6 % [facility] Neutrophils (Bld) [#/Vol] 10.59 10*3/uL High [facility] Neutrophils/100 WBC (Bld) 75.7 % [facility] Nucleated RBC (Bld) [#/Vol] [facility] Nucleated RBC/100 WBC (Bld) [Ratio] 0.0 % /100 WBC [facility] Platelet mean volume (Bld) [Entitic vol] 9.9 fL 9.0 - 12.7 fL [facility] Platelets (Bld) [#/Vol] 327 10*3/uL [facility] RBC (Bld) [#/Vol] 4.26 10*6/uL 3.90 - 5.2 0 m/uL [facility] WBC (Bld) [#/Vol] 14.00 10*3/uL High [facility] Basophils (Bld) [#/Vol] 0.10 10*3/uL Normal <0.11 [facility] Comment on above: Order Comment: Speci men Type: BLOOD SPECIMENOrdering Facility: [facility] Address: [address] [place] [address] Performed By: #### 5 7021-8 ####[facility] LABCLIA [id number] [place] [address] Basophils/100 WBC (Bld) 0.7 % Normal [facility] Comment on above: Order Comment: Speci men Type: BLOOD SPECIMENOrdering Facility: [facility] Address: [address] [place] [address] Performed By: #### 5 7021-8 ####[facility] LABCLIA [id number] [place] [address] Differential cell count method Nom (Bld) Auto Normal [facility] Comment on above: Order Comment: Speci men Type: BLOOD SPECIMENOrdering Facility: [facility] Address: [address] [place] [address] Performed By: #### 5 7021-8 ####[facility] LABIA [id number] [place] [address] Eosinophils (Bld) [#/Vol] 0.15 10*3/uL Normal <0.46 [facility] Comment on above: Order Comment: Speci men Type: BLOOD SPECIMENOrdering Facility: [facility] Address: [address] [place], [place] [address] Performed By: #### 5 7021-8 ####[facility] LABCLIA [id number] [place] [address] Eosinophils/100 WBC (Bld) 1.1 % Normal [facility] Comment on above: Order Comment: Speci men Type: BLOOD SPECIMENOrdering Facility: [facility] Address: [address] [place] [address] Performed By: #### 5 7021-8 ####[facility] LABCLIA [id number] [place] [address] Erythrocyte distribution width (RBC) [Ratio] 14.2 % Normal 11.5-15.0 [facility] Comment on above: Order Comment: Speci men Type: BLOOD SPECIMENOrdering Facility: [facility] Address: [address] [place] [address] Performed By: #### 5 7021-8 ####[facility] LABCLIA [id number] [place] [address] Hematocrit (Bld) [Volume fraction] 39.0 % Normal 36.0-46.0 [facility] Comment on above: Order Comment: Speci men Type: BLOOD SPECIMENOrdering Facility: [facility] Address: [address] [place] [address] Performed By: #### 5 7021-8 ####[facility] LABCLIA [id number] [place] [address] Hemoglobin (Bld) [Mass/Vol] 13.0 g/dL Normal 11.5-15.5 [facility] Comment on above: Order Comment: Speci men Type: BLOOD SPECIMENOrdering Facility: [facility] Address: [address] [place] [address] Performed By: #### 5 7021-8 ####[facility] LABCLIA [id number] [place] [address] Immature granulocytes (Bld) [#/Vol] 0.21 10*3/uL High <0.10 [facility] Comment on above: Order Comment: Speci men Type: BLOOD SPECIMENOrdering Facility: [facility] Address: [address] [place] [address] Performed By: #### 5 7021-8 ####[facility] LABCLIA [id number] [place] [address] Immature granulocytes/100 WBC (Bld) 1.5 % Normal [facility] Comment on above: Order Comment: Speci men Type: BLOOD SPECIMENOrdering Facility: [facility] Address: [address] [place] [address] Performed By: #### 5 7021-8 ####[facility] LABCLIA [id number] [place] [address] Lymphocytes (Bld) [#/Vol] 2.16 10*3/uL Normal 1.00-4.00 [facility] Comment on above: Order Comment: Speci men Type: BLOOD SPECIMENOrdering Facility: [facility] Address: [address] [place] [address] Performed By: #### 5 7021-8 ####[facility] LABCLIA [id number] [place] [address] Lymphocytes/100 WBC (Bld) 15.4 % Normal [facility] Comment on above: Order Comment: Speci men Type: BLOOD SPECIMENOrdering Facility: [facility] Address: [address] [place] [address] Performed By: #### 5 7021-8 ####[facility] LABCLIA [id number] [place] [address] MCH (RBC) [Entitic mass] 30.5 pg Normal 26.0-34.0 [facility] Comment on above: Order Comment: Speci men Type: BLOOD SPECIMENOrdering Facility: [facility] Address: [address] [place] [address] Performed By: #### 5 7021-8 ####[facility] LABCLIA [id number] [place] [address] MCHC (RBC) [Mass/Vol] 33.3 g/dL Normal 30.5-36.0 [facility] Comment on above: Order Comment: Speci men Type: BLOOD SPECIMENOrdering Facility: [facility] Address: [address] [place] [address] Performed By: #### 5 7021-8 ####[facility] LABCLIA [id number] [place] [address] MCV (RBC) [Entitic vol] 91.5 fL Normal 80.0-100.0 [facility] Comment on above: Order Comment: Speci men Type: BLOOD SPECIMENOrdering Facility: [facility] Address: [address] [place] [address] Performed By: #### 5 7021-8 ####[facility] LABCLIA [id number] [place] [address] Monocytes (Bld) [#/Vol] 0.79 10*3/uL Normal <0.87 [facility] Comment on above: Order Comment: Speci men Type: BLOOD SPECIMENOrdering Facility: [facility] Address: [address] [place] [address] Performed By: #### 5 7021-8 ####[facility] LABCLIA [id number] [place] [address] Monocytes/100 WBC (Bld) 5.6 % Normal [facility] Comment on above: Order Comment: Speci men Type: BLOOD SPECIMENOrdering Facility: [facility] Address: [address] [place] [address] Performed By: #### 5 7021-8 ####[facility] LABCLIA [id number] [place] [address] Neutrophils (Bld) [#/Vol] 10.59 10*3/uL High 1.45-7.50 [facility] Comment on above: Order Comment: Speci men Type: BLOOD SPECIMENOrdering Facility: [facility] Address: [address] [place] [address] Performed By: #### 5 7021-8 ####[facility] LABCLIA [id number] [place] [address] Neutrophils/100 WBC (Bld) 75.7 % Normal [facility] Comment on above: Order Comment: Speci men Type: BLOOD SPECIMENOrdering Facility: [facility] Address: [address] [place] [address] Performed By: #### 5 7021-8 ####[facility] LABCLIA [id number] [place] [address] Nucleated RBC (Bld) [#/Vol] 10*3/uL Normal <0.01 [facility] Comment on above: Order Comment: Speci men Type: BLOOD SPECIMENOrdering Facility: [facility] Address: [address] [place] [address] Performed By: #### 5 7021-8 ####[facility] LABCLIA [id number] [place] [address] Nucleated RBC/100 WBC (Bld) [Ratio] 0.0 /100 WBC Normal [facility] Comment on above: Order Comment: Speci men Type: BLOOD SPECIMENOrdering Facility: [facility] Address: [address] [place] [address] Performed By: #### 5 7021-8 ####[facility] LABCLIA [id number] [place] [address] Platelet mean volume (Bld) [Entitic vol] 9.9 fL Normal 9.0-12.7 [facility] Comment on above: Order Comment: Speci men Type: BLOOD SPECIMENOrdering Facility: [facility] Address: [address] [place] [address] Performed By: #### 5 7021-8 ####[facility] LABCLIA [id number] [place] [address] Platelets (Bld) [#/Vol] 327 10*3/uL Normal 150-400 [facility] Comment on above: Order Comment: Speci men Type: BLOOD SPECIMENOrdering Facility: [facility] Address: [address] [place] [address] Performed By: #### 5 7021-8 ####[facility] LABCLIA [id number] [place] [address] RBC (Bld) [#/Vol] 4.26 10*6/uL Normal 3.90-5.20 [facility] Comment on above: Order Comment: Speci men Type: BLOOD SPECIMENOrdering Facility: [facility] Address: [address] [place] [address] Performed By: #### 5 7021-8 ####[facility] LABIA [id number] [place] [address] WBC (Bld) [#/Vol] 14.00 10*3/uL High 3.70-11.00 [facility] Comment on above: Order Comment: Speci men Type: BLOOD SPECIMENOrdering Facility: [facility] Address: [address] [place] [address] Performed By: #### 5 7021-8 ####[facility] LABIA [id number] [place] [address] CNOVSPon 06-13-2024 CNOVSP Normal [facility] Comprehensive metabolic 2000 panelOrdered By: Josse Merlos on 06-13-2024 Albumin [Mass/Vol] 3.9 g/dL 3.9 - 4.9 g/dL [facility] ALP [Catalytic activity/Vol] 73 U/L 34 - 123 U/L [facility] ALT [Catalytic activity/Vol] 24 U/L 7 - 38 U/L [facility] Anion gap [Moles/Vol] 15 mmol/L 8 - 15 mmol/L [facility] AST [Catalytic activity/Vol] 12 U/L Low 13 - 35 U/L [facility] Bilirubin [Mass/Vol] mg/dL Low 0.2 - 1 .3 mg/dL [facility] Calcium [Mass/Vol] 9.2 mg/dL 8.5 - 10. 2 mg/dL [facility] Chloride [Moles/Vol] 104 mmol/L 98 - 10 7 mmol/L [facility] CO2 [Moles/Vol] 19 mmol/L Low 22 - 30 mmol/L [facility] Creatinine [Mass/Vol] 0.58 mg/dL 0.58 - 0.96 mg/dL [facility] GFR/1.73 sq M.predicted among non-blacks MDRD (S/P/Bld) [Vol rate/Area] 115 mL/min/{1.73_m2} - PINF [facility] Comment on above: Estimated Glomerular Filtration Rate [...] not accurately reflect actual GFR. Glucose [Mass/Vol] 163 mg/dL High 74 - 99 mg/dL [facility] Comment on above: The [place] Diab[employer] [place] Association (ADA) provides guidance for [...] Standards of Medical Care in Diabetes 2016, [place] [employer]. Diabetes Care. 2016.39(Suppl 1). Interpretation and review of laboratory results Abnormal [facility] Potassium [Moles/Vol] 3.9 mmol/L 3.7 - 5.1 mmol/L [facility] Protein [Mass/Vol] 6.8 g/dL 6.3 - 8.0 g/dL [facility] Sodium [Moles/Vol] 138 mmol/L 136 - 144 mmol/L [facility] Urea nitrogen [Mass/Vol] 13 mg/dL 7 - 21 mg/dL [facility] Comprehensive metabolic 2000 panelon 06-13-2024 Albumin [Mass/Vol] 3.9 g/dL Normal 3.9-4.9 [facility] Comment on above: Order Comment: Speci men Type: BLOOD SPECIMENOrdering Facility: [facility] Address: [address] [place] [address] Performed By: #### 2 4323-8 ####[facility] LABCLIA [id number] [place] [address] ALP [Catalytic activity/Vol] 73 U/L Normal 34-123 [facility] Comment on above: Order Comment: Speci men Type: BLOOD SPECIMENOrdering Facility: [facility] Address: [address] [place] [address] Performed By: #### 2 4323-8 ####[facility] LABCLIA [id number] [place] [address] ALT [Catalytic activity/Vol] 24 U/L Normal 7-38 [facility] Comment on above: Order Comment: Speci men Type: BLOOD SPECIMENOrdering Facility: [facility] Address: [address] [place] [address] Performed By: #### 2 4323-8 ####[facility] LABCLIA [id number] [place] [address] Anion gap [Moles/Vol] 15 mmol/L Normal 8-15 [facility] Comment on above: Order Comment: Speci men Type: BLOOD SPECIMENOrdering Facility: [facility] Address: [address] [place] [address] Performed By: #### 2 4323-8 ####[facility] LABCLIA [id number] [place] [address] AST [Catalytic activity/Vol] 12 U/L Low 13-35 [facility] Comment on above: Order Comment: Speci men Type: BLOOD SPECIMENOrdering Facility: [facility] Address: [address] [place] [address] Performed By: #### 2 4323-8 ####[facility] LABCLIA [id number] [place] [address] Bilirubin [Mass/Vol] mg/dL Low 0.2-1.3 [facility] Comment on above: Order Comment: Speci men Type: BLOOD SPECIMENOrdering Facility: [facility] Address: [address] [place] [address] Performed By: #### 2 4323-8 ####[facility] LABCLIA [id number] [place] [address] Calcium [Mass/Vol] 9.2 mg/dL Normal 8.5-10.2 [facility] Comment on above: Order Comment: Speci men Type: BLOOD SPECIMENOrdering Facility: [facility] Address: [address] [place] [address] Performed By: #### 2 4323-8 ####[facility] LABCLIA [id number] [place] [address] Chloride [Moles/Vol] 104 mmol/L Normal 98-107 [facility] Comment on above: Order Comment: Speci men Type: BLOOD SPECIMENOrdering Facility: [facility] Address: [address] [place] [address] Performed By: #### 2 4323-8 ####[facility] LABCLIA [id number] [place] [address] CO2 [Moles/Vol] 19 mmol/L Low 22-30 [facility] Comment on above: Order Comment: Speci men Type: BLOOD SPECIMENOrdering Facility: [facility] Address: [address] [place] [address] Performed By: #### 2 4323-8 ####[facility] LABCLIA [id number] [place] [address] Creatinine [Mass/Vol] 0.58 mg/dL Normal 0.58-0.96 [facility] Comment on above: Order Comment: Speci men Type: BLOOD SPECIMENOrdering Facility: [facility] Address: [address] [place], [place] [address] Performed By: #### 2 4323-8 ####[facility] LABCLIA [id number] [place] [address] Creatinine and Glomerular filtration rate.predicted panel (S/P/Bld) 115 mL/min/1.73m??? Normal >=60 [facility] Comment on above: Order Comment: Semaj men Type: BLOOD SPECIMENOrdering Facility: [facility] Address: [address] [place] [address] Result Comment: Erin mated Glomerular Filtration Rate [...] actual GFR. Performed By: #### 2 4323-8 ####[facility] LABCLIA [id number] [place] [address] Glucose [Mass/Vol] 163 mg/dL High 74-99 [facility] Comment on above: Order Comment: Semaj cortés Type: BLOOD SPECIMENOrdering Facility: [facility] Address: [address] [place], [place] [address] Result Comment: The [place] Diabetes Association (ADA) provides guidance for cutoff [...] Standards of Medical Care in Diabetes 2016, [place] [employer]. Diabetes Care. 2016.39(Suppl 1). Performed By: #### 2 4323-8 ####[facility] LABCLIA [id number] [place] [address] Potassium [Moles/Vol] 3.9 mmol/L Normal 3.7-5.1 [facility] Comment on above: Order Comment: Speci men Type: BLOOD SPECIMENOrdering Facility: [facility] Address: [address] [place] [address] Performed By: #### 2 4323-8 ####[facility] LABCLIA [id number] [place] [address] Protein [Mass/Vol] 6.8 g/dL Normal 6.3-8.0 [facility] Comment on above: Order Comment: Speci men Type: BLOOD SPECIMENOrdering Facility: [facility] Address: [address] [place] [address] Performed By: #### 2 4323-8 ####[facility] LABCLIA [id number] [place] [address] Sodium [Moles/Vol] 138 mmol/L Normal 136-144 [facility] Comment on above: Order Comment: Speci men Type: BLOOD SPECIMENOrdering Facility: [facility] Address: [address] [place] [address] Performed By: #### 2 4323-8 ####[facility] LABCLIA [id number] [place] [address] Urea nitrogen [Mass/Vol] 13 mg/dL Normal 7-21 [facility] Comment on above: Order Comment: Speci men Type: BLOOD SPECIMENOrdering Facility: [facility] Address: [address] [place] [address] Performed By: #### 2 4323-8 ####[facility] LABCLIA [id number] [place] [address] ESR Westergren method (Bld) [Velocity]on 06-13-2024 ESR (Bld) [Velocity] 30 mm/h [facility] Interpretation and review of laboratory results Abnormal [facility] ESR (Bld) [Velocity] 30 mm/h High 0-20 [facility] Comment on above: Order Comment: Speci men Type: BLOOD SPECIMENOrdering Facility: [facility] Address: [address] [place] [address] Performed By: #### 4 537-7 ####[facility] LABCLIA [id number] [place] [address] [place] FERRITINon 06-13-2024 Ferritin [Mass/Vol] 30.9 ng/mL 14.7 - 2 05.1 ng/mL [facility] FOLATE, SERUMon 06-13-2024 Folate [Mass/Vol] 19.6 ng/mL 4.7 - PINF ng/mL [facility] Ferritin SerPl-mCncon 2024 Ferritin [Mass/Vol] 30.9 ng/mL Normal 14.7-205.1 [facility] Comment on above: Order Comment: Speci men Type: BLOOD SPECIMENOrdering Facility: [facility] Address: [address] [place] [address] Performed By: #### 5 0190-8, 6-4, 2283-12, 2132-01 ####[facility] LABCLIA [id number] [place] [address] [place] Ferritin [Mass/Vol]on 2024 Interpretation and review of laboratory results Normal [facility] Folate SerPl-mCncon 06-13-19 25 Folate [Mass/Vol] 19.6 ng/mL Normal >4.7 [facility] [place] Comment on above: Order Comment: Speci men Type: BLOOD SPECIMENOrdering Facility: [facility] Address: [address] [place] [address] Performed By: #### 5 0190-8, 2276-4, 2283-8, 2132-01 ####[facility] LABCLIA [id number] [place] [address] [place] IMMUNOGLOBULINS,IGG,IGA,IGMo n 06-13-2024 IgA [Mass/Vol] 170 mg/dL Normal 70-400 [facility] Comment on above: Order Comment: Speci men Type: BLOOD SPECIMENOrdering Facility: [facility] Address: [address] [place] [address] Performed By: #### S ERIMM ####[facility] LABCLIA [id number] [place] [address] [place] IgG [Mass/Vol] 663 mg/dL Low 700-1600 [facility] Comment on above: Order Comment: Speci men Type: BLOOD SPECIMENOrdering Facility: [facility] Address: [address] [place] [address] Performed By: #### S ERIMM ####[facility] LABCLIA [id number] [place] [address] [place] IgM [Mass/Vol] 376 mg/dL High 40-230 [facility] Comment on above: Order Comment: Speci men Type: BLOOD SPECIMENOrdering Facility: [facility] Address: [address] [place] [address] Performed By: #### S ERIMM ####[facility] LABCLIA [id number] [place] [address] [place] Iron and Iron binding capaci ty panelon 06-13-2024 Iron [Mass/Vol] 64 ug/dL Normal 41-186 [facility] Comment on above: Order Comment: Speci men Type: BLOOD SPECIMENOrdering Facility: [facility] Address: [address] [place] [address] Performed By: #### 5 0190-8, 2276-4, 2284-8, 2132-9 ####[facility] LABCLIA [id number] [place] [address] [place] Iron binding capacity [Mass/Vol] 409 ug/dL High 232-386 [facility] Comment on above: Order Comment: Speci men Type: BLOOD SPECIMENOrdering Facility: [facility] Address: [address] [place] [address] Performed By: #### 5 0190-8, 2275-08, 2283-12, 2132-01 ####[facility] LABCLIA [id number] [address] [address] [place] Iron/TIBC [Molar ratio] 15.6 % Normal 15.0-57.0 [facility] Comment on above: Order Comment: Speci men Type: BLOOD SPECIMENOrdering Facility: [facility] Address: [address] [place] [address] Performed By: #### 5 0190-8, 2275-08, 2283-12, 2132-01 ####[facility] [facility] [id number] [place] [address] [place] Laboratory - Chemistry and C hemistry - challengeon 06-13-2024 IgA [Mass/Vol] 170 mg/dL 70 - 400 mg/dL [facility] IgG [Mass/Vol] 663 mg/dL Low 700 - 1600 mg/dL [facility] IgM [Mass/Vol] 376 mg/dL High 40 - 230 mg/dL [facility] No Panel Informationon 06-13 Interpretation and review of laboratory results Normal [facility] Interpretation and review of laboratory results Abnormal [facility] VITAMIN B12on 06-13-2024 Cobalamin (Vitamin B12) [Mass/Vol] 516 pg/mL 232 - 1245 pg/mL [facility] Vit B12 SerPl-mCncon 025 Cobalamin (Vitamin B12) [Mass/Vol] 516 pg/mL Normal 232-1245 [facility] Comment on above: Order Comment: Speci men Type: BLOOD SPECIMENOrdering Facility: [facility] Address: [address] [place] [address] Performed By: #### 5 0190-8, 4, 2283-12, 2132-01 ####[facility] [id number] [place] [id number] [place] CNPNon 06-12-2024 CNPN Normal [facility] IGP,APTIMA HPV,AGE GDLNon AGE GDLN ACOG TESTING Note . [facility] Comment on above: TESTS RESULT FLAG UN ITS REF RANGE LAB Clinician Provided Cytology Information Source.............Cervix;Endocervix No. of containers..01 ThinPrep Vial Age Algo ACOG Vicky... FLAG LEGEND: L-Low Normal,H-High Normal,LL-Alert Low,HH-Alert High <-Panic Low,>-Panic High,A-Abnormal,AA-Critical Abnormal Performed at: 01 =[address] [address] Aparna Solorzano MD, HPV APTIMA Negative Negative [facility] Comment on above: This nucleic acid am plification test detects fourteen high- risk HPV types (16,18,31,33,35,39,45,51,52,56,58,59,66,68) without differentiation. Performed at: =[address] [id number] Pediatrician Active Practice: Aparna Solorzano MD, Phone: [phone] Performed at: [address] [id number] Pediatrician Active Practice: Aparna Solorzano MD, Phone: [phone] IGP, APTIMA HPV, RFX 16/18,45 Note . [facility] Comment on above: TESTS RESULT FLAG UN ITS REF RANGE LAB DIAGNOSIS: 02 NEGATIVE FOR INTRAEPITHELIAL LESION OR MALIGNANCY. Specimen adequacy: 02 Satisfactory for evaluation. Endocervical and/or squamous metaplastic cells (endocervical component) are present. Performed by: 02 Kenzie Kam, Stretching Machine Operator ([facility]) . 02 Note: Note 02 The Pap smear is a screening test designed to aid in the detection of premalignant and malignant conditions of the uterine cervix. It is not a diagnostic procedure and should not be used as the sole means of detecting cervical cancer. Both false-positive and false-negative reports do occur. Test Methodology: Note 02 This liquid based ThinPrep(R) pap test was screened with the use of an image guided system. HPV Genotype Reflex Note 02 Criteria not met, HPV Genotype not performed. FLAG LEGEND: L-Low Normal,H-High Normal,LL-Alert Low,HH-Alert High <-Panic Low,>-Panic High,A-Abnormal,AA-Critical Abnormal Performed at: 02 [facility] [address] [place] [address] Aparna Solorzano MD, BRUSH-SPATULA CERVIX ENDOCERVIX [facility] CBC W Auto Differential pane l (Bld)on 12-27-2024 Basophils (Bld) [#/Vol] 0.08 10*3/uL [facility] Basophils/100 WBC (Bld) 0.6 % [facility] Differential cell count method Nom (Bld) Auto [facility] Eosinophils (Bld) [#/Vol] 0.17 10*3/uL [facility] Eosinophils/100 WBC (Bld) 1.2 % [facility] Erythrocyte distribution width (RBC) [Ratio] 14.3 % 11.5 - 15.0 % [facility] Hematocrit (Bld) [Volume fraction] 39.8 % 36.0 - 46.0 % [facility] Hemoglobin (Bld) [Mass/Vol] 13.4 g/dL 11.5 - 15.5 g/dL [facility] Immature granulocytes (Bld) [#/Vol] 0.13 10*3/uL High [facility] Immature granulocytes/100 WBC (Bld) 0.9 % [facility] Interpretation and review of laboratory results Abnormal [facility] Lymphocytes (Bld) [#/Vol] 2.96 10*3/uL [facility] Lymphocytes/100 WBC (Bld) 20.5 % [facility] MCH (RBC) [Entitic mass] 31.1 pg 26.0 - 34.0 pg [facility] MCHC (RBC) [Mass/Vol] 33.7 g/dL 30.5 - 36.0 g/dL [facility] MCV (RBC) [Entitic vol] 92.3 fL 80.0 - 100.0 fL [facility] Monocytes (Bld) [#/Vol] 0.87 10*3/uL High [facility] Monocytes/100 WBC (Bld) 6.0 % [facility] Neutrophils (Bld) [#/Vol] 10.20 10*3/uL High [facility] Neutrophils/100 WBC (Bld) 70.8 % [facility] Nucleated RBC (Bld) [#/Vol] [facility] Nucleated RBC/100 WBC (Bld) [Ratio] 0.0 % /100 WBC [facility] Platelet mean volume (Bld) [Entitic vol] 10.1 fL 9.0 - 12.7 fL [facility] Platelets (Bld) [#/Vol] 303 10*3/uL [facility] RBC (Bld) [#/Vol] 4.31 10*6/uL 3.90 - 5.2 0 m/uL [facility] WBC (Bld) [#/Vol] 14.41 10*3/uL High [facility] Basophils (Bld) [#/Vol] 0.08 10*3/uL Normal <0.11 [facility] Comment on above: Order Comment: Speci men Type: BLOOD SPECIMENOrdering Facility: [facility] Address: [address] [place] [address] Performed By: #### 5 7021-8 ####[facility] LABCLIA [id number] [place] [address] Basophils/100 WBC (Bld) 0.6 % Normal [facility] Comment on above: Order Comment: Speci men Type: BLOOD SPECIMENOrdering Facility: [facility] Address: [address] [place] [address] Performed By: #### 5 7021-8 ####[facility]CLIA [id number] [place] [address] Differential cell count method Nom (Bld) Auto Normal [facility] Comment on above: Order Comment: Speci men Type: BLOOD SPECIMENOrdering Facility: [facility] Address: [address] [place] [address] Performed By: #### 5 7021-8 ####[facility]CLIA [id number] [place] [address] Eosinophils (Bld) [#/Vol] 0.17 10*3/uL Normal <0.46 [facility] Comment on above: Order Comment: Speci men Type: BLOOD SPECIMENOrdering Facility: [facility] Address: [address] [place] [address] Performed By: #### 5 7021-8 ####[facility]CLIA [id number] [place] [address] Eosinophils/100 WBC (Bld) 1.2 % Normal [facility] Comment on above: Order Comment: Speci men Type: BLOOD SPECIMENOrdering Facility: [facility] Address: [address] [place] [address] Performed By: #### 5 7021-8 ####[facility]CLIA [id number] [place] [address] Erythrocyte distribution width (RBC) [Ratio] 14.3 % Normal 11.5-15.0 [facility] Comment on above: Order Comment: Speci men Type: BLOOD SPECIMENOrdering Facility: [facility] Address: [address] [place] [address] Performed By: #### 5 7021-8 ####[facility]CLIA [id number] [place] [address] Hematocrit (Bld) [Volume fraction] 39.8 % Normal 36.0-46.0 [facility] Comment on above: Order Comment: Speci men Type: BLOOD SPECIMENOrdering Facility: [facility] Address: [address] [place] [address] Performed By: #### 5 7021-8 ####[facility] LABIA [id number] [place] [address] Hemoglobin (Bld) [Mass/Vol] 13.4 g/dL Normal 11.5-15.5 [facility] Comment on above: Order Comment: Speci men Type: BLOOD SPECIMENOrdering Facility: [facility] Address: [address] [place] [address] Performed By: #### 5 7021-8 ####[facility]CLIA [id number] [place] [address] Immature granulocytes (Bld) [#/Vol] 0.13 10*3/uL High <0.10 [facility] Comment on above: Order Comment: Speci men Type: BLOOD SPECIMENOrdering Facility: [facility] Address: [address] [place] [address] Performed By: #### 5 7021-8 ####[facility]CLIA [id number] [place] [address] Immature granulocytes/100 WBC (Bld) 0.9 % Normal [facility] Comment on above: Order Comment: Speci men Type: BLOOD SPECIMENOrdering Facility: [facility] Address: [address] [place] [address] Performed By: #### 5 7021-8 ####[facility]CLIA [id number] [place] [address] Lymphocytes (Bld) [#/Vol] 2.96 10*3/uL Normal 1.00-4.00 [facility] Comment on above: Order Comment: Speci men Type: BLOOD SPECIMENOrdering Facility: [facility] Address: [address] [place] [address] Performed By: #### 5 7021-8 ####[facility]CLIA [id number] [place] [address] Lymphocytes/100 WBC (Bld) 20.5 % Normal [facility] Comment on above: Order Comment: Speci men Type: BLOOD SPECIMENOrdering Facility: [facility] Address: [address] [place] [address] Performed By: #### 5 7021-8 ####[facility]CLIA [id number] [place] [address] MCH (RBC) [Entitic mass] 31.1 pg Normal 26.0-34.0 [facility] Comment on above: Order Comment: Speci men Type: BLOOD SPECIMENOrdering Facility: [facility] Address: [address] [place] [address] Performed By: #### 5 7021-8 ####[facility] LABCLIA [id number] [place] [address] MCHC (RBC) [Mass/Vol] 33.7 g/dL Normal 30.5-36.0 [facility] Comment on above: Order Comment: Speci men Type: BLOOD SPECIMENOrdering Facility: [facility] Address: [address] [place] [address] Performed By: #### 5 7021-8 ####[facility] LABCLIA [id number] [place] [address] MCV (RBC) [Entitic vol] 92.3 fL Normal 80.0-100.0 [facility] Comment on above: Order Comment: Speci men Type: BLOOD SPECIMENOrdering Facility: [facility] Address: [address] [place] [address] Performed By: #### 5 7021-8 ####[facility] LABCLIA [id number] [place] [address] Monocytes (Bld) [#/Vol] 0.87 10*3/uL High <0.87 [facility] Comment on above: Order Comment: Speci men Type: BLOOD SPECIMENOrdering Facility: [facility] Address: [address] [place] [address] Performed By: #### 5 7021-8 ####[facility]CLIA [id number] [place] [address] Monocytes/100 WBC (Bld) 6.0 % Normal [facility] Comment on above: Order Comment: Speci men Type: BLOOD SPECIMENOrdering Facility: [facility] Address: [address] [place] [address] Performed By: #### 5 7021-8 ####[facility]CLIA [id number] [place] [address] Neutrophils (Bld) [#/Vol] 10.20 10*3/uL High 1.45-7.50 [facility] Comment on above: Order Comment: Speci men Type: BLOOD SPECIMENOrdering Facility: [facility] Address: [address] [place] [address] Performed By: #### 5 7021-8 ####[facility]CLIA [id number] [place] [address] Neutrophils/100 WBC (Bld) 70.8 % Normal [facility] Comment on above: Order Comment: Speci men Type: BLOOD SPECIMENOrdering Facility: [facility] Address: [address] [place] [address] Performed By: #### 5 7021-8 ####[facility]CLIA [id number] [place] [address] Nucleated RBC (Bld) [#/Vol] 10*3/uL Normal <0.01 [facility] Comment on above: Order Comment: Speci men Type: BLOOD SPECIMENOrdering Facility: [facility] Address: [address] [place] [address] Performed By: #### 5 7021-8 ####[facility]CLIA [id number] [place] [address] Nucleated RBC/100 WBC (Bld) [Ratio] 0.0 /100 WBC Normal [facility] Comment on above: Order Comment: Speci men Type: BLOOD SPECIMENOrdering Facility: [facility] Address: [address] [place] [address] Performed By: #### 5 7021-8 ####[facility]CLIA [id number] [place] [address] Platelet mean volume (Bld) [Entitic vol] 10.1 fL Normal 9.0-12.7 [facility] Comment on above: Order Comment: Speci men Type: BLOOD SPECIMENOrdering Facility: [facility] Address: [address] [place] [address] Performed By: #### 5 7021-8 ####[facility] LABCLIA [id number] [place] [address] Platelets (Bld) [#/Vol] 303 10*3/uL Normal 150-400 [facility] Comment on above: Order Comment: Speci men Type: BLOOD SPECIMENOrdering Facility: [facility] Address: [address] [place] [address] Performed By: #### 5 7021-8 ####[facility]CLIA [id number] [place] [address] RBC (Bld) [#/Vol] 4.31 10*6/uL Normal 3.90-5.20 [facility] Comment on above: Order Comment: Speci men Type: BLOOD SPECIMENOrdering Facility: [facility] Address: [address] [place] [address] Performed By: #### 5 7021-8 ####[facility]CLIA [id number] [place] [address] WBC (Bld) [#/Vol] 14.41 10*3/uL High 3.70-11.00 [facility] Comment on above: Order Comment: Speci men Type: BLOOD SPECIMENOrdering Facility: [facility] Address: [address] [place] [address] Performed By: #### 5 7021-8 ####[facility] LABCLIA [id number] [place] [address] Comprehensive metabolic 2000 panelon 05-19-2024 Albumin [Mass/Vol] 4.0 g/dL 3.9 - 4.9 g/dL [facility] ALP [Catalytic activity/Vol] 79 U/L 34 - 123 U/L [facility] ALT [Catalytic activity/Vol] 25 U/L 7 - 38 U/L [facility] Anion gap [Moles/Vol] 14 mmol/L 8 - 15 mmol/L [facility] AST [Catalytic activity/Vol] 12 U/L Low 13 - 35 U/L [facility] Bilirubin [Mass/Vol] mg/dL Low 0.2 - 1 .3 mg/dL [facility] Calcium [Mass/Vol] 9.4 mg/dL 8.5 - 10. 2 mg/dL [facility] Chloride [Moles/Vol] 105 mmol/L 98 - 10 7 mmol/L [facility] CO2 [Moles/Vol] 21 mmol/L Low 22 - 30 mmol/L [facility] Creatinine [Mass/Vol] 0.49 mg/dL Low 0.58 - 0.96 mg/dL [facility] GFR/1.73 sq M.predicted among non-blacks MDRD (S/P/Bld) [Vol rate/Area] 120 mL/min/{1.73_m2} - PINF [facility] Comment on above: Estimated Glomerular Filtration Rate [...] 155 mg/dL High 74 - 99 mg/dL [facility] Comment on above: The [place] Diab[employer] [place] Association (ADA) provides guidance for [...] Standards of Medical Care in Diabetes 2016, [place] [employer]. Diabetes Care. 2016.39(Suppl 1). Interpretation and review of laboratory results Abnormal [facility] Potassium [Moles/Vol] 3.8 mmol/L 3.7 - 5.1 mmol/L [facility] Protein [Mass/Vol] 6.6 g/dL 6.3 - 8.0 g/dL [facility] Sodium [Moles/Vol] 140 mmol/L 136 - 144 mmol/L [facility] Urea nitrogen [Mass/Vol] 12 mg/dL 7 - 21 mg/dL [facility] Albumin [Mass/Vol] 4.0 g/dL Normal 3.9-4.9 [facility] Comment on above: Order Comment: Speci men Type: BLOOD SPECIMENOrdering Facility: [facility] Address: [address] [place] [address] Performed By: #### 2 4323-8 ####[facility] LABCLIA [id number] [place] [address] [place] ALP [Catalytic activity/Vol] 79 U/L Normal 34-123 [facility] Comment on above: Order Comment: Speci men Type: BLOOD SPECIMENOrdering Facility: [facility] Address: [address] [place] [address] Performed By: #### 2 4323-8 ####[facility] LABCLIA [id number] [place] [address] [place] ALT [Catalytic activity/Vol] 25 U/L Normal 7-38 [facility] Comment on above: Order Comment: Speci men Type: BLOOD SPECIMENOrdering Facility: [facility] Address: [address] [place] [address] Performed By: #### 2 4323-8 ####[facility]CLIA [id number] [place] [address] [place] Anion gap [Moles/Vol] 14 mmol/L Normal 8-15 [facility] Comment on above: Order Comment: Speci men Type: BLOOD SPECIMENOrdering Facility: [facility] Address: [address] [place] [address] Performed By: #### 2 4323-8 ####[facility] LABCLIA [id number] [place] [address] [place] AST [Catalytic activity/Vol] 12 U/L Low 13-35 [facility] Comment on above: Order Comment: Speci men Type: BLOOD SPECIMENOrdering Facility: [facility] Address: [address] [place] [address] Performed By: #### 2 4323-8 ####[facility] LABCLIA [id number] [place] [address] [place] Bilirubin [Mass/Vol] mg/dL Low 0.2-1.3 [facility] Comment on above: Order Comment: Speci men Type: BLOOD SPECIMENOrdering Facility: [facility] Address: [address] [place] [address] Performed By: #### 2 4323-8 ####[facility]CLIA [id number] [place] [address] [place] Calcium [Mass/Vol] 9.4 mg/dL Normal 8.5-10.2 [facility] Comment on above: Order Comment: Speci men Type: BLOOD SPECIMENOrdering Facility: [facility] Address: [address] [place] [address] Performed By: #### 2 4323-8 ####[facility]CLIA [id number] [place] [address] [place] Chloride [Moles/Vol] 105 mmol/L Normal 98-107 [facility] Comment on above: Order Comment: Speci men Type: BLOOD SPECIMENOrdering Facility: [facility] Address: [address] [place] [address] Performed By: #### 2 4323-8 ####[facility]CLIA [id number] [place] [address] [place] CO2 [Moles/Vol] 21 mmol/L Low 22-30 [facility] Comment on above: Order Comment: Speci men Type: BLOOD SPECIMENOrdering Facility: [facility] Address: [address] [place] [address] Performed By: #### 2 4323-8 ####[facility]CLIA [id number] [place] [address] [place] Creatinine [Mass/Vol] 0.49 mg/dL Low 0.58-0.96 [facility] Comment on above: Order Comment: Speci men Type: BLOOD SPECIMENOrdering Facility: [facility] Address: [address] [place] [address] Performed By: #### 2 4323-8 ####[facility] LABCLIA [id number] [place] [address] [place] Creatinine and Glomerular filtration rate.predicted panel (S/P/Bld) 120 mL/min/1.73m??? Normal >=60 [facility] Comment on above: Order Comment: Semaj cortés Type: BLOOD SPECIMENOrdering Facility: [facility] Address: [address] [place] [address] Result Comment: Erin mated Glomerular Filtration Rate [...] actual GFR. Performed By: #### 2 4323-8 ####[facility]CLIA [id number] [place] [address] [place] Glucose [Mass/Vol] 155 mg/dL High 74-99 [facility] Comment on above: Order Comment: Semaj cortés Type: BLOOD SPECIMENOrdering Facility: [facility] Address: [address] [place] [address] Result Comment: The [place] Diabetes Association (ADA) provides guidance for cutoff [...] Standards of Medical Care in Diabetes 2016, [place] [employer]. Diabetes Care. 2016.39(Suppl 1). Performed By: #### 2 4323-8 ####[facility] LABIA [id number] [place] [address] [place] Potassium [Moles/Vol] 3.8 mmol/L Normal 3.7-5.1 [facility] Comment on above: Order Comment: Speci men Type: BLOOD SPECIMENOrdering Facility: [facility] Address: [address] [place] [address] Performed By: #### 2 4323-8 ####[facility] LABCLIA [id number] [place] [address] [place] Protein [Mass/Vol] 6.6 g/dL Normal 6.3-8.0 [facility] Comment on above: Order Comment: Speci men Type: BLOOD SPECIMENOrdering Facility: [facility] Address: [address] [place] [address] Performed By: #### 2 4323-8 ####[facility] LABCLIA [id number] [place] [address] [place] Sodium [Moles/Vol] 140 mmol/L Normal 136-144 [facility] Comment on above: Order Comment: Speci men Type: BLOOD SPECIMENOrdering Facility: [facility] Address: [address] [place] [address] Performed By: #### 2 4323-8 ####[facility] LABCLIA [id number] [place] [address] [place] Urea nitrogen [Mass/Vol] 12 mg/dL Normal 7-21 [facility] Comment on above: Order Comment: Speci men Type: BLOOD SPECIMENOrdering Facility: [facility] Address: [address] [place] [address] Performed By: #### 2 4323-8 ####[facility] LABCLIA [id number] [place] [address] [place] ESR Westergren method (Bld) [Velocity]on 05-19-2024 ESR (Bld) [Velocity] 21 mm/h High [facility] Interpretation and review of laboratory results Abnormal [facility] ESR (Bld) [Velocity] 21 mm/h High 0-20 [facility] Comment on above: Order Comment: Speci men Type: BLOOD SPECIMENOrdering Facility: [facility] Address: [address] [place] [address] Performed By: #### 4 537-7 ####[facility] [id number] [place] [address] [place] FERRITIN BLDon 05-19-2024 Ferritin [Mass/Vol] 20.6 ng/mL 14.7 - 2 05.1 ng/mL [facility] FOLATE SERUMon 05-19-2024 Folate [Mass/Vol] 11.1 ng/mL 4.7 - PINF ng/mL [facility] Ferritin SerPl-mCncon 2023 Ferritin [Mass/Vol] 20.6 ng/mL Normal 14.7-205.1 [facility] Comment on above: Order Comment: Speci men Type: BLOOD SPECIMENOrdering Facility: [facility] Address: [address] [place] [address] Performed By: #### 2 276-4, 22398-3, 4-8, 9 ####[facility] [id number] [place] [address] [place] Folate SerPl-ncon 05-19-20 Folate [Mass/Vol] 11.1 ng/mL Normal >4.7 [facility] Comment on above: Order Comment: Speci men Type: BLOOD SPECIMENOrdering Facility: [facility] Address: [address] [place] [address] Performed By: #### 2 276-4, 39710-8, 228-8, 2132-01 ####[facility] [id number] [place] [address] [place] Iron and Iron binding capaci ty panelon 05-19-2024 Interpretation and review of laboratory results Abnormal [facility] Iron [Mass/Vol] 47 ug/dL 41 - 186 ug/dL [facility] Iron binding capacity [Mass/Vol] 420 ug/dL High 232 - 386 ug/dL [facility] Iron/TIBC [Molar ratio] 11.2 % Low 15.0 - 57.0 % [facility] Iron [Mass/Vol] 47 ug/dL Normal 41-186 [facility] Comment on above: Order Comment: Speci men Type: BLOOD SPECIMENOrdering Facility: [facility] Address: [address] [place], [place] [id number] Performed By: #### 2 276-4, 49633-3, 2283-8, 9 ####[facility] LABCLIA [id number] [place] [id number] [place] Iron binding capacity [Mass/Vol] 420 ug/dL High 232-386 [facility] Comment on above: Order Comment: Speci men Type: BLOOD SPECIMENOrdering Facility: [facility] Address: [address] [place] [address] Performed By: #### 2 276-4, 10781-1, 2283-8, 9 ####[facility] LABCLIA [id number] [place] [address] [place] Iron/TIBC [Molar ratio] 11.2 % Low 15.0-57.0 [facility] Comment on above: Order Comment: Speci men Type: BLOOD SPECIMENOrdering Facility: [facility] Address: [address] [place] [address] Performed By: #### 2 276-4, 62532-0, 2283-8, 9 ####[facility] LABCLIA [id number] [place] [id number] [place] No Panel Informationon 05-19 Interpretation and review of laboratory results Normal [facility] VITAMIN B12 BLOODon 05-19-20 24 Cobalamin (Vitamin B12) [Mass/Vol] 632 pg/mL 232 - 1245 pg/mL [facility] Vit B12 SerPl-mCncon 024 Cobalamin (Vitamin B12) [Mass/Vol] 632 pg/mL Normal 232-1245 [facility] Comment on above: Order Comment: Speci men Type: BLOOD SPECIMENOrdering Facility: [facility] Address: [address] [place] [address] Performed By: #### 2 276-4, 35055-4, 2284-8, 2132-9 ####[facility] LABCLIA [id number] [place] [address] [place] CNNURSEon 04-26-2024 CNNURSE Normal [facility] CNPNon 04-10-2024 CNPN Normal [facility] ALL CBC WITH AUTO DIFFon BASOPHILS ABSOLUTE AUTO 0.1 [facility] Basophils/100 WBC (Bld) 0.4 % 0.2 - 2.0 % [facility] Eosinophils/100 WBC (Bld) 0.4 % Low 0.9 - 7.0 % [facility] Erythrocyte distribution width (RBC) [Ratio] 15.1 % High 11.0 - 15.0 % [facility] Hematocrit (Bld) [Volume fraction] 39.7 % 36.0 - 48.0 % [facility] Hemoglobin (Bld) [Mass/Vol] 13 g/dL 12.0 - 16.0 g/dL [facility] IMMATURE GRANULOCYTES ABS AUTO 0.1 High [facility] Immature granulocytes/100 WBC (Bld) 0.9 % High 0.0 - 0.5 % [facility] Interpretation and review of laboratory results Abnormal [facility] LYMPHOCYTES ABSOLUTE AUTO 2.1 [facility] Lymphocytes/100 WBC (Bld) 18.4 % Low 20.5 - 60.0 % [facility] MCH (RBC) [Entitic mass] 30.9 pg 26.7 - 34.0 pg [facility] MCHC (RBC) [Mass/Vol] 32.7 g/dL 29.9 - 35.2 g/dL [facility] MCV (RBC) [Entitic vol] 94.3 fL 81.0 - 99.0 fL [facility] MONOCYTES ABSOLUTE AUTO 0.8 [facility] Monocytes/100 WBC (Bld) 6.7 % 1.7 - 12.0 % [facility] NEUTROPHILS ABSOLUTE AUTO 8.3 High [facility] Neutrophils/100 WBC (Bld) 73.2 % 43.0 - 75.0 % [facility] Platelet mean volume (Bld) [Entitic vol] 10.1 fL 9.5 - 13.5 fL [facility] EO # 0.1 [facility] PLT 326 [facility] RBC 4.21 [facility] WBC 11.4 High [facility] ALL THYROID STIM HORMONEon 1 06-06-2023 Interpretation and review of laboratory results Abnormal [facility] TSH Qn 0.333 m[IU]/L Low [facility] ALL THYROXINE (T4) FREEon Free T4 [Mass/Vol] 1.01 ng/dL 0.76 - 1. 46 ng/dL [facility] APTTon 04-06-2024 aPTT Coag (Bld) [Time] 25.6 s [facility] MLR HEMOGLOBIN A1Con 024 Glucose [Mass/Vol] 134 mg/dL [facility] HbA1c (Bld) [Mass fraction] 6.3 % High 4.5 - 6.2 % [facility] Comment on above: ADA RECOMMENDED LIMI T 4.0 - 6.0 ADA THERAPEUTIC TARGET < 7.0 ACTION SUGGESTED > 7.0 Interpretation and review of laboratory results Abnormal [facility] No Panel Informationon 04-06 [facility] SRMCOH PROTHROMBIN TIME INR W/O COUMon 04-06-2024 PT Coag (PPP) [Time] 9.6 s [facility] INR <0.93 [facility] Comment on above: DESIRED INR: 2.0-3.0 CONDITIONS NOT LISTED BELOW 2.5-3.5 FOR PROSTHETIC HEART VALVE REPLACEMENT 2.5-3.5 RECURRENT THROMBOSIS TB PREG QUANT HCGon 024 HCG QUANTITATIVE <1 mIU/mL [facility] Comment on above: 5-50 0.2-1 WEEK 50-500 1-2 WEEKS 100-5,000 2-3 WEEKS 500-10,000 3-4 WEEKS 1,000-50,000 4-5 WEEKS 10,000-100,000 5-6 WEEKS 15,000-200,000 6-8 WEEKS 10,000-100,000 2-3 MONTHS CNPNon 04-02-2024 CNPN Normal [facility] 25(OH)D3 SerPl-mCncon 2023 25-hydroxyvitamin D3 [Mass/Vol] 19.9 ng/mL Low .0-80.0 [facility] Comment on above: Order Comment: Speci men Type: BLOOD SPECIMENOrdering Facility: [facility] Address: [address] [place] [address] Result Comment: Clas sification of 25 [place] Vitamin D status:Deficiency/Insufficiency: < or = 30 ng/ml.Sufficiency/Optimal Levels: 31-80 ng/mLToxicity: > 100 ng/mL.Test performed by chemiluminescent immunoassay. Performed By: #### 1 989-3 ####[facility] LABCLIA [id number] [place] [address] [place] BLOOD TB SCREENon 03-23-2024 M. tuberculosis tuberculin stim IFN-g Ql (Bld) Negative Normal [facility] Comment on above: Order Comment: Speci men Type: BLOOD SPECIMENOrdering Facility: [facility] Address: [address] [place] [address] Performed By: #### I NFTBP ####[facility] LABCLIA [id number] [place] [address] [place] MITOGEN MINUS NIL >10.00 Normal >=0.50 [facility] Comment on above: Order Comment: Speci men Type: BLOOD SPECIMENOrdering Facility: [facility] Address: [address] [place] [address] Performed By: #### I NFTBP ####[facility] LABCLIA [id number] [place] [address] [place] TB GAMMA INTERPRETATION Normal [facility] Comment on above: Order Comment: Speci men Type: BLOOD SPECIMENOrdering Facility: [facility] Address: [address] [place] [address] Performed By: #### I NFTBP ####[facility] LABCLIA [id number] [place] [address] [place] TB NIL <0.00 Normal <=8.00 [facility] Comment on above: Order Comment: Speci men Type: BLOOD SPECIMENOrdering Facility: [facility] Address: [address] [place] [address] Performed By: #### I NFTBP ####[facility] LABCLIA [id number] [place] [address] [place] TB1 AG MINUS NIL 0.00 IU/mL Normal <0.35 [facility] Comment on above: Order Comment: Speci men Type: BLOOD SPECIMENOrdering Facility: [facility] Address: [address] [place] [address] Performed By: #### I NFTBP ####[facility] LABCLIA [id number] [place] [address] [place] TB2 AG MINUS NIL 0.00 IU/mL Normal <0.35 [facility] Comment on above: Order Comment: Speci men Type: BLOOD SPECIMENOrdering Facility: [facility] Address: [address] [place] [address] Performed By: #### I NFTBP ####[facility] LABCLIA [id number] [place] [address] [place] Bacteria Bld Culton 03-23-20 24 Bacteria identified Cx Nom (Bld) CULTURE, BLOOD: No growth 5 days Normal [facility] Comment on above: Performed By: #### 6 00-7 ####[facility] LABCLIA [id number] [place] [address] [place] CBC W Auto Differential pane l (Bld)on 03-23-2024 Basophils (Bld) [#/Vol] 0.06 10*3/uL Normal <0.11 [facility] Comment on above: Order Comment: Speci men Type: BLOOD SPECIMENOrdering Facility: [facility] Address: [address] [place] [address] Performed By: #### 5 7021-8 ####[facility] LABCLIA [id number] [place] [address] Basophils/100 WBC (Bld) 0.5 % Normal [facility] Comment on above: Order Comment: Speci men Type: BLOOD SPECIMENOrdering Facility: [facility] Address: [address] [place] [address] Performed By: #### 5 7021-8 ####[facility] LABCLIA [id number] [place] [address] Differential cell count method Nom (Bld) Auto Normal [facility] Comment on above: Order Comment: Speci men Type: BLOOD SPECIMENOrdering Facility: [facility] Address: [address] [place] [address] Performed By: #### 5 7021-8 ####[facility] LABCLIA [id number] [place] [address] Eosinophils (Bld) [#/Vol] 0.13 10*3/uL Normal <0.46 [facility] Comment on above: Order Comment: Speci men Type: BLOOD SPECIMENOrdering Facility: [facility] Address: [address] [place] [address] Performed By: #### 5 7021-8 ####[facility] LABCLIA [id number] [place] [address] Eosinophils/100 WBC (Bld) 1.0 % Normal [facility] Comment on above: Order Comment: Speci men Type: BLOOD SPECIMENOrdering Facility: [facility] Address: [address] [place] [address] Performed By: #### 5 7021-8 ####[facility] LABCLIA [id number] [place] [address] Erythrocyte distribution width (RBC) [Ratio] 15.2 % High 11.5-15.0 [facility] Comment on above: Order Comment: Speci men Type: BLOOD SPECIMENOrdering Facility: [facility] Address: [address] [place] [address] Performed By: #### 5 7021-8 ####[facility] LABCLIA [id number] [place] [address] Hematocrit (Bld) [Volume fraction] 39.3 % Normal 36.0-46.0 [facility] Comment on above: Order Comment: Speci men Type: BLOOD SPECIMENOrdering Facility: [facility] Address: [address] [place] [address] Performed By: #### 5 7021-8 ####[facility] LABCLIA [id number] [place] [address] Hemoglobin (Bld) [Mass/Vol] 13.1 g/dL Normal 11.5-15.5 [facility] Comment on above: Order Comment: Speci men Type: BLOOD SPECIMENOrdering Facility: [facility] Address: [address] [place] [address] Performed By: #### 5 7021-8 ####[facility] LABCLIA [id number] [place] [address] Immature granulocytes (Bld) [#/Vol] 0.12 10*3/uL High <0.10 [facility] Comment on above: Order Comment: Speci men Type: BLOOD SPECIMENOrdering Facility: [facility] Address: [address] [place] [address] Performed By: #### 5 7021-8 ####[facility] LABCLIA [id number] [place] [address] Immature granulocytes/100 WBC (Bld) 0.9 % Normal [facility] Comment on above: Order Comment: Speci men Type: BLOOD SPECIMENOrdering Facility: [facility] Address: [address] [place] [address] Performed By: #### 5 7021-8 ####[facility] LABIA [id number] [place] [address] Lymphocytes (Bld) [#/Vol] 2.03 10*3/uL Normal 1.00-4.00 [facility] Comment on above: Order Comment: Speci men Type: BLOOD SPECIMENOrdering Facility: [facility] Address: [address] [place] [address] Performed By: #### 5 7021-8 ####[facility] LABCLIA [id number] [place] [address] Lymphocytes/100 WBC (Bld) 15.7 % Normal [facility] Comment on above: Order Comment: Speci men Type: BLOOD SPECIMENOrdering Facility: [facility] Address: [address] [place] [address] Performed By: #### 5 7021-8 ####[facility] LABCLIA [id number] [place] [address] MCH (RBC) [Entitic mass] 31.3 pg Normal 26.0-34.0 [facility] Comment on above: Order Comment: Speci men Type: BLOOD SPECIMENOrdering Facility: [facility] Address: [address] [place] [address] Performed By: #### 5 7021-8 ####[facility] LABCLIA [id number] [place] [address] MCHC (RBC) [Mass/Vol] 33.3 g/dL Normal 30.5-36.0 [facility] Comment on above: Order Comment: Speci men Type: BLOOD SPECIMENOrdering Facility: [facility] Address: [address] [place] [address] Performed By: #### 5 7021-8 ####[facility] LABCLIA [id number] [place] [address] MCV (RBC) [Entitic vol] 93.8 fL Normal 80.0-100.0 [facility] Comment on above: Order Comment: Speci men Type: BLOOD SPECIMENOrdering Facility: [facility] Address: [address] [place] [address] Performed By: #### 5 7021-8 ####[facility] LABCLIA [id number] [place] [address] Monocytes (Bld) [#/Vol] 0.65 10*3/uL Normal <0.87 [facility] Comment on above: Order Comment: Speci men Type: BLOOD SPECIMENOrdering Facility: [facility] Address: [address] [place] [address] Performed By: #### 5 7021-8 ####[facility] LABCLIA [id number] [place] [address] Monocytes/100 WBC (Bld) 5.0 % Normal [facility] Comment on above: Order Comment: Speci men Type: BLOOD SPECIMENOrdering Facility: [facility] Address: [address] [place] [address] Performed By: #### 5 7021-8 ####[facility] LABCLIA [id number] [place] [address] Neutrophils (Bld) [#/Vol] 9.90 10*3/uL High 1.45-7.50 [facility] Comment on above: Order Comment: Speci men Type: BLOOD SPECIMENOrdering Facility: [facility] Address: [address] [place] [address] Performed By: #### 5 7021-8 ####[facility] LABCLIA [id number] [place] [address] Neutrophils/100 WBC (Bld) 76.9 % Normal [facility] Comment on above: Order Comment: Speci men Type: BLOOD SPECIMENOrdering Facility: [facility] Address: [address] [place] [address] Performed By: #### 5 7021-8 ####[facility] LABCLIA [id number] [place] [address] Nucleated RBC (Bld) [#/Vol] 10*3/uL Normal <0.01 [facility] Comment on above: Order Comment: Speci men Type: BLOOD SPECIMENOrdering Facility: [facility] Address: [address] [place] [address] Performed By: #### 5 7021-8 ####[facility] LABCLIA [id number] [place] [address] Nucleated RBC/100 WBC (Bld) [Ratio] 0.0 /100 WBC Normal [facility] Comment on above: Order Comment: Speci men Type: BLOOD SPECIMENOrdering Facility: [facility] Address: [address] [place] [address] Performed By: #### 5 7021-8 ####[facility] LABCLIA [id number] [place] [address] Platelet mean volume (Bld) [Entitic vol] 10.0 fL Normal 9.0-12.7 [facility] Comment on above: Order Comment: Speci men Type: BLOOD SPECIMENOrdering Facility: [facility] Address: [address] [place] [address] Performed By: #### 5 7021-8 ####[facility] LABCLIA [id number] [place] [address] Platelets (Bld) [#/Vol] 262 10*3/uL Normal 150-400 [facility] Comment on above: Order Comment: Speci men Type: BLOOD SPECIMENOrdering Facility: [facility] Address: [address] [place] [address] Performed By: #### 5 7021-8 ####[facility] LABCLIA [id number] [place] [address] RBC (Bld) [#/Vol] 4.19 10*6/uL Normal 3.90-5.20 [facility] Comment on above: Order Comment: Speci men Type: BLOOD SPECIMENOrdering Facility: [facility] Address: [address] [place] [address] Performed By: #### 5 7021-8 ####[facility] LABCLIA [id number] [place] [address] WBC (Bld) [#/Vol] 12.89 10*3/uL High 3.70-11.00 [facility] Comment on above: Order Comment: Speci men Type: BLOOD SPECIMENOrdering Facility: [facility] Address: [address] [place] [address] Performed By: #### 5 7021-8 ####[facility] LABCLIA [id number] [place] [address] CNNURSEon 03-23-2024 CNNURSE Normal [facility] CRP SerPl-mCncon 03-23-2024 CRP [Mass/Vol] 0.3 mg/dL Normal <0.9 [facility] Comment on above: Order Comment: Speci men Type: BLOOD SPECIMENOrdering Facility: [facility] Address: [address] [place] [address] Performed By: #### 1 988-5, 95939-7, 2276-4 ####[facility] LABCLIA [id number] [place] [address] [place] Comprehensive metabolic 2000 panelon 03-23-2024 Albumin [Mass/Vol] 3.9 g/dL Normal 3.9-4.9 [facility] Comment on above: Order Comment: Speci men Type: BLOOD SPECIMENOrdering Facility: [facility] Address: [address] [place] [address] Performed By: #### 2 4323-8 ####[facility] LABCLIA [id number] [place] [address] [place] ALP [Catalytic activity/Vol] 70 U/L Normal 34-123 [facility] Comment on above: Order Comment: Speci men Type: BLOOD SPECIMENOrdering Facility: [facility] Address: [address] [place] [address] Performed By: #### 2 4323-8 ####[facility] LABCLIA [id number] [place] [address] [place] ALT [Catalytic activity/Vol] 27 U/L Normal 7-38 [facility] Comment on above: Order Comment: Speci men Type: BLOOD SPECIMENOrdering Facility: [facility] Address: [address] [place] [id number] Performed By: #### 2 4323-8 ####[facility] LABCLIA [id number] [address] [address] [place] Anion gap [Moles/Vol] 15 mmol/L Normal 8-15 [facility] Comment on above: Order Comment: Speci men Type: BLOOD SPECIMENOrdering Facility: [facility] Address: [address] [place], [place] [address] Performed By: #### 2 4323-8 ####[facility] LABCLIA [id number] [place] [address] [place] AST [Catalytic activity/Vol] 20 U/L Normal 13-35 [facility] Comment on above: Order Comment: Speci men Type: BLOOD SPECIMENOrdering Facility: [facility] Address: [address] [place] [address] Performed By: #### 2 4323-8 ####[facility] LABCLIA [id number] [place] [address] [place] Bilirubin [Mass/Vol] mg/dL Low 0.2-1.3 [facility] Comment on above: Order Comment: Speci men Type: BLOOD SPECIMENOrdering Facility: [facility] Address: [address] [place], [place] [address] Performed By: #### 2 4323-8 ####[facility] LABCLIA [id number] [place] [address] [place] Calcium [Mass/Vol] 9.2 mg/dL Normal 8.5-10.2 [facility] Comment on above: Order Comment: Speci men Type: BLOOD SPECIMENOrdering Facility: [facility] Address: [address] [place], [place] [address] Performed By: #### 2 4323-8 ####[facility] LABCLIA [id number] [place] [address] [place] Chloride [Moles/Vol] 104 mmol/L Normal 98-107 [facility] Comment on above: Order Comment: Speci men Type: BLOOD SPECIMENOrdering Facility: [facility] Address: [address] [place] [address] Performed By: #### 2 4323-8 ####[facility] LABCLIA [id number] [place] [address] [place] CO2 [Moles/Vol] 20 mmol/L Low 22-30 [facility] Comment on above: Order Comment: Speci men Type: BLOOD SPECIMENOrdering Facility: [facility] Address: [address] [place] [address] Performed By: #### 2 4323-8 ####[facility] LABIA [id number] [place] [address] [place] [facility] Creatinine [Mass/Vol] 0.61 mg/dL Normal 0.58-0.96 [facility] Comment on above: Order Comment: Speci men Type: BLOOD SPECIMENOrdering Facility: [facility] Address: [address] [place] [address] Performed By: #### 2 4323-8 ####[facility] LABIA [id number] [place] [address] [place] Creatinine and Glomerular filtration rate.predicted panel (S/P/Bld) 114 mL/min/1.73m??? Normal >=60 [facility] Comment on above: Order Comment: Speci men Type: BLOOD SPECIMENOrdering Facility: [facility] Address: [address] [place] [address] Result Comment: Erin mated Glomerular Filtration Rate [...] actual GFR. Performed By: #### 2 4323-8 ####[facility] LABIA [id number] [place] [address] [place] Glucose [Mass/Vol] 152 mg/dL High 74-99 [facility] Comment on above: Order Comment: Leolai men Type: BLOOD SPECIMENOrdering Facility: [facility] Address: [address] [place] [address] Result Comment: The [place] [employer] (ADA) provides guidance for cutoff [...] Standards of Medical Care in Diabetes 2016, [place] [employer]. Diabetes Care. 2016.39(Suppl 1). Performed By: #### 2 4323-8 ####[facility] LABIA [id number] [place] [address] [place] Potassium [Moles/Vol] 4.3 mmol/L Normal 3.7-5.1 [facility] Comment on above: Order Comment: Leolai men Type: BLOOD SPECIMENOrdering Facility: [facility] Address: [address] [place] [address] Performed By: #### 2 4323-8 ####[facility] LABIA [id number] [place] [address] [place] Protein [Mass/Vol] 6.6 g/dL Normal 6.3-8.0 [facility] Comment on above: Order Comment: Leolai men Type: BLOOD SPECIMENOrdering Facility: [facility] Address: [address] [place] [address] Performed By: #### 2 4323-8 ####[facility] LABIA [id number] [place] [address] [place] Sodium [Moles/Vol] 139 mmol/L Normal 136-144 [facility] Comment on above: Order Comment: Speci men Type: BLOOD SPECIMENOrdering Facility: [facility] Address: [address] [place] [address] Performed By: #### 2 4323-8 ####[facility] [id number] [place] [address] [place] Urea nitrogen [Mass/Vol] 20 mg/dL Normal 7-21 [facility] Comment on above: Order Comment: Speci men Type: BLOOD SPECIMENOrdering Facility: [facility] Address: [address] [place] [address] Performed By: #### 2 4323-8 ####[facility] [id number] [place] [address] [place] ESR Westergren method (Bld) [Velocity]on 03-23-2024 ESR (Bld) [Velocity] 27 mm/h High 0-20 [facility] Comment on above: Order Comment: Speci men Type: BLOOD SPECIMENOrdering Facility: [facility] Address: [address] [place] [address] Performed By: #### 4 537-7 ####[facility] [id number] [place] [id number] [place] Ferritin SerPl-mCncon 2023 Ferritin [Mass/Vol] 33.3 ng/mL Normal 14.7-205.1 [facility] Comment on above: Order Comment: Speci men Type: BLOOD SPECIMENOrdering Facility: [facility] Address: [address] [place] [address] Performed By: #### 1 988-5, 27222-6, 2276-4 ####[facility] LABCLIA [id number] [place] [address] [place] Folate SerPl-mCncon 03-23-20 Folate [Mass/Vol] 13.0 ng/mL Normal >4.7 [facility] Comment on above: Order Comment: Speci men Type: BLOOD SPECIMENOrdering Facility: [facility] Address: [address] [place] [address] Performed By: #### 2 284-8, 2132-9 ####[facility] LABCLIA [id number] [place] [address] [place] HCG ( test) Ql (U)o n 03-23-2024 Interpretation and review of laboratory results Normal [facility] Preg Test, Ur Negative Negative [facility] Healthcare [facility] IMMUNOGLOBULINS,IGG,IGA,IGMo n 03-23-2024 IgA [Mass/Vol] 171 mg/dL Normal 70-400 [facility] Comment on above: Order Comment: Speci men Type: BLOOD SPECIMENOrdering Facility: [facility] Address: [address] [place] [address] Performed By: #### S ERIMM ####[facility] LABIA [id number] [place] [address] [place] IgG [Mass/Vol] 476 mg/dL Low 700-1600 [facility] Comment on above: Order Comment: Speci men Type: BLOOD SPECIMENOrdering Facility: [facility] Address: [address] [place] [address] Performed By: #### S ERIMM ####[facility] LABIA [id number] [place] [address] [place] IgM [Mass/Vol] 373 mg/dL High 40-230 [facility] Comment on above: Order Comment: Speci men Type: BLOOD SPECIMENOrdering Facility: [facility] Address: [address] [place] [address] Performed By: #### S ERIMM ####[facility] [id number] [place] [id number] [place] Iron and Iron binding capaci ty panelon 03-23-2024 Iron [Mass/Vol] 67 ug/dL Normal 41-186 [facility] Comment on above: Order Comment: Speci men Type: BLOOD SPECIMENOrdering Facility: [facility] Address: [address] [place] [address] Performed By: #### 1 988-5, 30307-5, 2276-4 ####[facility] [id number] [place] [address] [place] Iron binding capacity [Mass/Vol] 399 ug/dL High 232-386 [facility] Comment on above: Order Comment: Speci men Type: BLOOD SPECIMENOrdering Facility: [facility] Address: [address] [place] [address] Performed By: #### 1 988-5, 31315-9, 6-4 ####[facility] [id number] [place] [address] [place] Iron/TIBC [Molar ratio] 16.8 % Normal 15.0-57.0 [facility] Comment on above: Order Comment: Speci men Type: BLOOD SPECIMENOrdering Facility: [facility] Address: [address] [place] [address] Performed By: #### 1 988-5, 29498-4, 2275-4 ####[facility] [id number] [place] [id number] [place] Urinalysis macro (dipstick) panel (U)on 03-23-2024 Bilirubin, UA Negative Negative - 4(70) +++ mg/dL [facility] Blood, UA Positive Negative - 50 Dusty/mcL [facility] Comment on above: large Clarity, UA Cloudy [facility] Color, UA Dark Georgie [facility] Glucose, UA Positive Negative - 2000(110) ++++ mg/dL [facility] Comment on above: 100 mg Interpretation and review of laboratory results Abnormal [facility] Ketones, UA Negative Negative - 160(16) ++++ mg/dL [facility] Leukocytes, UA Positive Negative - 500+++ Andi/mcL [facility] Comment on above: small Nitrite, UA Negative Negative - Positive [facility] pH, UA 5.5 5 - 9 [facility] Protein, UA Positive Negative - 2000(20) ++++ mg/dL [facility] Comment on above: 30 mg Spec Grav, UA 1.03 1 - 1.03 [facility] Urobilinogen, UA 0.2 0.2 - 12 mg/dL [facility]12 [facility] Cobalamin (Vitamin B12) [Mass/Vol] 607 pg/mL Normal 232-1245 [facility] Comment on above: Order Comment: Speci men Type: BLOOD SPECIMENOrdering Facility: [facility] Address: [address] [place] [address] Performed By: #### 2 284-8, 2132-9 ####[facility] LABCLIA [id number] [place] [id number] [place] Office Visiton 03-08-2024 Follow-up visit [id number] Ariadna Haley 1980 F Date Provider Department Center 03/08/2024 Renny-CALOS MENDOZA [facility] Family History Problem Relation Age of Onset Heart failure Maternal Grandmother Heart attack Maternal Grandfather Family Status - Relation Status Age at Maternal Grandmother Maternal Grandfather Level of Service:18018 ME OFFICE/OUTPATIENT NEW MODERATE MDM [address] [facility] CNPNon 02-22-2024 CNPN Normal [facility] CBC W Auto Differential pane l (Bld)on 02-21-2024 Basophils (Bld) [#/Vol] 0.03 10*3/uL Normal <0.11 [facility] Comment on above: Order Comment: Speci men Type: BLOOD SPECIMENOrdering Facility: [facility] Address: [address] [place] [address] Performed By: #### 5 7021-8 ####[facility] LABCLIA [id number] [place] [address] Basophils/100 WBC (Bld) 0.2 % Normal [facility] Comment on above: Order Comment: Speci men Type: BLOOD SPECIMENOrdering Facility: [facility] Address: [address] [place] [address] Performed By: #### 5 7021-8 ####[facility] LABCLIA [id number] [place] [address] Differential cell count method Nom (Bld) Auto Normal [facility] Comment on above: Order Comment: Speci men Type: BLOOD SPECIMENOrdering Facility: [facility] Address: [address] [place] [address] Performed By: #### 5 7021-8 ####[facility] LABCLIA [id number] [place] [address] Eosinophils (Bld) [#/Vol] 0.03 10*3/uL Normal <0.46 [facility] Comment on above: Order Comment: Speci men Type: BLOOD SPECIMENOrdering Facility: [facility] Address: [address] [place] [address] Performed By: #### 5 7021-8 ####[facility] LABCLIA [id number] [place] [address] Eosinophils/100 WBC (Bld) 0.2 % Normal [facility] Comment on above: Order Comment: Speci men Type: BLOOD SPECIMENOrdering Facility: [facility] Address: [address] [place] [address] Performed By: #### 5 7021-8 ####[facility] LABCLIA [id number] [place] [address] Erythrocyte distribution width (RBC) [Ratio] 15.1 % High 11.5-15.0 [facility] Comment on above: Order Comment: Speci men Type: BLOOD SPECIMENOrdering Facility: [facility] Address: [address] [place] [address] Performed By: #### 5 7021-8 ####[facility] LABCLIA [id number] [place] [address] Hematocrit (Bld) [Volume fraction] 41.2 % Normal 36.0-46.0 [facility] Comment on above: Order Comment: Speci men Type: BLOOD SPECIMENOrdering Facility: [facility] Address: [address] [place] [address] Performed By: #### 5 7021-8 ####[facility] LABCLIA [id number] [place] [address] Hemoglobin (Bld) [Mass/Vol] 13.8 g/dL Normal 11.5-15.5 [facility] Comment on above: Order Comment: Speci men Type: BLOOD SPECIMENOrdering Facility: [facility] Address: [address] [place] [address] Performed By: #### 5 7021-8 ####[facility] LABCLIA [id number] [place] [address] Immature granulocytes (Bld) [#/Vol] 0.15 10*3/uL High <0.10 [facility] Comment on above: Order Comment: Speci men Type: BLOOD SPECIMENOrdering Facility: [facility] Address: [address] [place] [address] Performed By: #### 5 7021-8 ####[facility] LABCLIA [id number] [place] [address] Immature granulocytes/100 WBC (Bld) 0.9 % Normal [facility] Comment on above: Order Comment: Speci men Type: BLOOD SPECIMENOrdering Facility: [facility] Address: [address] [place] [address] Performed By: #### 5 7021-8 ####[facility] LABCLIA [id number] [place] [address] Lymphocytes (Bld) [#/Vol] 1.62 10*3/uL Normal 1.00-4.00 [facility] Comment on above: Order Comment: Speci men Type: BLOOD SPECIMENOrdering Facility: [facility] Address: [address] [place] [address] Performed By: #### 5 7021-8 ####[facility] LABCLIA [id number] [place] [address] Lymphocytes/100 WBC (Bld) 9.8 % Normal [facility] Comment on above: Order Comment: Speci men Type: BLOOD SPECIMENOrdering Facility: [facility] Address: [address] [place] [address] Performed By: #### 5 7021-8 ####[facility] LABCLIA [id number] [place] [address] MCH (RBC) [Entitic mass] 30.5 pg Normal 26.0-34.0 [facility] Comment on above: Order Comment: Speci men Type: BLOOD SPECIMENOrdering Facility: [facility] Address: [address] [place] [address] Performed By: #### 5 7021-8 ####[facility] LABCLIA [id number] [place] [address] MCHC (RBC) [Mass/Vol] 33.5 g/dL Normal 30.5-36.0 [facility] Comment on above: Order Comment: Speci men Type: BLOOD SPECIMENOrdering Facility: [facility] Address: [address] [place] [address] Performed By: #### 5 7021-8 ####[facility] LABCLIA [id number] [place] [address] MCV (RBC) [Entitic vol] 91.2 fL Normal 80.0-100.0 [facility] Comment on above: Order Comment: Speci men Type: BLOOD SPECIMENOrdering Facility: [facility] Address: [address] [place] [address] Performed By: #### 5 7021-8 ####[facility] LABCLIA [id number] [place] [address] Monocytes (Bld) [#/Vol] 0.76 10*3/uL Normal <0.87 [facility] Comment on above: Order Comment: Speci men Type: BLOOD SPECIMENOrdering Facility: [facility] Address: [address] [place] [address] Performed By: #### 5 7021-8 ####[facility] LABCLIA [id number] [place] [address] Monocytes/100 WBC (Bld) 4.6 % Normal [facility] Comment on above: Order Comment: Speci men Type: BLOOD SPECIMENOrdering Facility: [facility] Address: [address] [place] [address] Performed By: #### 5 7021-8 ####[facility] LABCLIA [id number] [place] [address] Neutrophils (Bld) [#/Vol] 13.99 10*3/uL High 1.45-7.50 [facility] Comment on above: Order Comment: Speci men Type: BLOOD SPECIMENOrdering Facility: [facility] Address: [address] [place] [address] Performed By: #### 5 7021-8 ####[facility] LABCLIA [id number] [place] [address] Neutrophils/100 WBC (Bld) 84.3 % Normal [facility] Comment on above: Order Comment: Speci men Type: BLOOD SPECIMENOrdering Facility: [facility] Address: [address] [place] [address] Performed By: #### 5 7021-8 ####[facility] LABCLIA [id number] [place] [address] Nucleated RBC (Bld) [#/Vol] 10*3/uL Normal <0.01 [facility] Comment on above: Order Comment: Speci men Type: BLOOD SPECIMENOrdering Facility: [facility] Address: [address] [place] [address] Performed By: #### 5 7021-8 ####[facility] LABCLIA [id number] [place] [address] Nucleated RBC/100 WBC (Bld) [Ratio] 0.0 /100 WBC Normal [facility] Comment on above: Order Comment: Speci men Type: BLOOD SPECIMENOrdering Facility: [facility] Address: [address] [place] [address] Performed By: #### 5 7021-8 ####[facility] LABCLIA [id number] [place] [address] Platelet mean volume (Bld) [Entitic vol] 9.9 fL Normal 9.0-12.7 [facility] Comment on above: Order Comment: Speci men Type: BLOOD SPECIMENOrdering Facility: [facility] Address: [address] [place] [address] Performed By: #### 5 7021-8 ####[facility] LABCLIA [id number] [place] [address] Platelets (Bld) [#/Vol] 332 10*3/uL Normal 150-400 [facility] Comment on above: Order Comment: Speci men Type: BLOOD SPECIMENOrdering Facility: [facility] Address: [address] [place] [address] Performed By: #### 5 7021-8 ####[facility] LABCLIA [id number] [place] [address] RBC (Bld) [#/Vol] 4.52 10*6/uL Normal 3.90-5.20 [facility] Comment on above: Order Comment: Speci men Type: BLOOD SPECIMENOrdering Facility: [facility] Address: [address] [place] [address] Performed By: #### 5 7021-8 ####[facility] LABCLIA [id number] [place] [address] WBC (Bld) [#/Vol] 16.58 10*3/uL High 3.70-11.00 [facility] Comment on above: Order Comment: Speci men Type: BLOOD SPECIMENOrdering Facility: [facility] Address: [address] [place] [address] Performed By: #### 5 7021-8 ####[facility] LABCLIA [id number] [place] [address] CNNURSEon 02-21-2024 CNNURSE Normal [facility] metabolic 2000 panelon 02-21-2024 Albumin [Mass/Vol] 4.3 g/dL Normal 3.9-4.9 [facility] Comment on above: Order Comment: Speci men Type: BLOOD SPECIMENOrdering Facility: [facility] Address: [address] [place] [address] Performed By: #### 2 4323-8 ####[facility] LABCLIA [id number] [place] [address] ALP [Catalytic activity/Vol] 72 U/L Normal 34-123 [facility] Comment on above: Order Comment: Speci men Type: BLOOD SPECIMENOrdering Facility: [facility] Address: [address] [place] [address] Performed By: #### 2 4323-8 ####[facility] LABCLIA [id number] [place] [address] ALT [Catalytic activity/Vol] 22 U/L Normal 7-38 [facility] Comment on above: Order Comment: Speci men Type: BLOOD SPECIMENOrdering Facility: [facility] Address: [address] [place] [address] Performed By: #### 2 4323-8 ####[facility] LABCLIA [id number] [place] [address] Anion gap [Moles/Vol] 13 mmol/L Normal 8-15 [facility] Comment on above: Order Comment: Speci men Type: BLOOD SPECIMENOrdering Facility: [facility] Address: [address] [place] [address] Performed By: #### 2 4323-8 ####[facility] LABCLIA [id number] [place] [address] AST [Catalytic activity/Vol] 9 U/L Low 13-35 [facility] Comment on above: Order Comment: Speci men Type: BLOOD SPECIMENOrdering Facility: [facility] Address: [address] [place] [address] Performed By: #### 2 4323-8 ####[facility] LABCLIA [id number] [place] [address] Bilirubin [Mass/Vol] 0.2 mg/dL Normal 0.2-1.3 [facility] Comment on above: Order Comment: Speci men Type: BLOOD SPECIMENOrdering Facility: [facility] Address: [address] [place] [address] Performed By: #### 2 4323-8 ####[facility] LABCLIA [id number] [place] [address] Calcium [Mass/Vol] 9.5 mg/dL Normal 8.5-10.2 [facility] Comment on above: Order Comment: Speci men Type: BLOOD SPECIMENOrdering Facility: [facility] Address: [address] [place] [address] Performed By: #### 2 4323-8 ####[facility] LABCLIA [id number] [place] [address] Chloride [Moles/Vol] 107 mmol/L Normal 98-107 [facility] Comment on above: Order Comment: Speci men Type: BLOOD SPECIMENOrdering Facility: [facility] Address: [address] [place] [address] Performed By: #### 2 4323-8 ####[facility] LABCLIA [id number] [place] [address] CO2 [Moles/Vol] 20 mmol/L Low 22-30 [facility] Comment on above: Order Comment: Speci men Type: BLOOD SPECIMENOrdering Facility: [facility] Address: [address] [place] [address] Performed By: #### 2 4323-8 ####[facility] LABCLIA [id number] [place] [address] Creatinine [Mass/Vol] 0.65 mg/dL Normal 0.58-0.96 [facility] Comment on above: Order Comment: Speci men Type: BLOOD SPECIMENOrdering Facility: [facility] Address: [address] [place] [address] Performed By: #### 2 4323-8 ####[facility] LABCLIA [id number] [place] [address] Creatinine and Glomerular filtration rate.predicted panel (S/P/Bld) 112 mL/min/1.73m??? Normal >=60 [facility] Comment on above: Order Comment: Speci men Type: BLOOD SPECIMENOrdering Facility: [facility] Address: [address] [place] [address] Result Comment: Erin mated Glomerular Filtration Rate [...] actual GFR. Performed By: #### 2 4323-8 ####[facility] LABCLIA [id number] [place] [address] Glucose [Mass/Vol] 215 mg/dL High 74-99 [facility] Comment on above: Order Comment: Speci men Type: BLOOD SPECIMENOrdering Facility: [facility] Address: [address] [place] [address] Result Comment: The [place] [employer] (ADA) provides guidance for cutoff [...] Standards of Medical Care in Diabetes 2016, [place] [employer]. Diabetes Care. 2016.39(Suppl 1). Performed By: #### 2 4323-8 ####[facility] LABCLIA [id number] [place] [address] Potassium [Moles/Vol] 4.2 mmol/L Normal 3.7-5.1 [facility] Comment on above: Order Comment: Speci men Type: BLOOD SPECIMENOrdering Facility: [facility] Address: [address] [place] [address] Performed By: #### 2 4323-8 ####[facility] LABCLIA [id number] [place] [address] Protein [Mass/Vol] 7.2 g/dL Normal 6.3-8.0 [facility] Comment on above: Order Comment: Speci men Type: BLOOD SPECIMENOrdering Facility: [facility] Address: [address] [place] [address] Performed By: #### 2 4323-8 ####[facility] LABCLIA [id number] [place] [address] Sodium [Moles/Vol] 140 mmol/L Normal 136-144 [facility] Comment on above: Order Comment: Speci men Type: BLOOD SPECIMENOrdering Facility: [facility] Address: [address] [place] [address] Performed By: #### 2 4323-8 ####[facility] LABCLIA [id number] [place] [address] Urea nitrogen [Mass/Vol] 15 mg/dL Normal 7-21 [facility] Comment on above: Order Comment: Speci men Type: BLOOD SPECIMENOrdering Facility: [facility] Address: [address] [place] [address] Performed By: #### 2 4323-8 ####[facility] LABCLIA [id number] [place] [id number] ESR Westergren method (Bld) [Velocity]on 02-21-2024 ESR (Bld) [Velocity] 33 mm/h High 0-20 [facility] Comment on above: Order Comment: Speci men Type: BLOOD SPECIMENOrdering Facility: [facility] Address: [address] [place] [address] Performed By: #### 4 537-7 ####[facility] LABCLIA [id number] [place] [address] [place] Ferritin SerPl-mCncon 2023 Ferritin [Mass/Vol] 36.3 ng/mL Normal 14.7-205.1 [facility] Comment on above: Order Comment: Speci men Type: BLOOD SPECIMENOrdering Facility: [facility] Address: [address] [place] [address] Performed By: #### 2 276-4, 2132-9, 01119-7, 2284-8 ####[facility] LABCLIA [id number] [place] [address] [place] Folate SerPl-mCncon 02-21-20 Folate [Mass/Vol] 18.8 ng/mL Normal >4.7 [facility] Comment on above: Order Comment: Speci men Type: BLOOD SPECIMENOrdering Facility: [facility] Address: [address] [place] [address] Performed By: #### 2 276-4, 2132-9, 62882-9, 2284-8 ####[facility] LABCLIA [id number] [place] [id number] [place] Iron and Iron binding capaci ty panelon 02-21-2024 Iron [Mass/Vol] 74 ug/dL Normal 41-186 [facility] Comment on above: Order Comment: Speci men Type: BLOOD SPECIMENOrdering Facility: [facility] Address: [address] [place] [address] Performed By: #### 2 276-4, 2131-9, 33491-2, 2283-8 ####[facility] LABCLIA [id number] [place] [address] [place] Iron binding capacity [Mass/Vol] 422 ug/dL High 232-386 [facility] Comment on above: Order Comment: Speci men Type: BLOOD SPECIMENOrdering Facility: [facility] Address: [address] [place] [address] Performed By: #### 2 276-4, 2131-9, 48703-4, 2283-8 ####[facility] LABCLIA [id number] [place] [address] [place] Iron/TIBC [Molar ratio] 17.5 % Normal 15.0-57.0 [facility] Comment on above: Order Comment: Speci men Type: BLOOD SPECIMENOrdering Facility: [facility] Address: [address] [place] [address] Performed By: #### 2 276-4, 2131-9, 04526-5, 2283-8 ####[facility] LABCLIA [id number] [place] [id number] [place] Vit B12 SerPl-ncon 024 Cobalamin (Vitamin B12) [Mass/Vol] 560 pg/mL Normal 232-1245 [facility] Comment on above: Order Comment: Speci men Type: BLOOD SPECIMENOrdering Facility: [facility] Address: [address] [place] [address] Performed By: #### 2 276-4, 2131-9, 54615-3, 2283-8 ####[facility] LABCLIA [id number] [place] [address] [place] CNPNon 02-18-2024 CNPN Normal [facility] HCG ( test) IA.rapi d Ql (U)Ordered By: Adolfo Kang on 02-16-2024 HCG ( test) Ql (U) Negative [facility] HCG,Urineon 02-16-2024 Beta HCG ( test) Ql (U) Negative Normal [facility] Comment on above: Result Comment: PERF ORMED BY: [facility] [address] [facility] [place] [address] PATHOLOGIST [employer] OPERATOR OFE CANNON M.D. Performed By: #### U HCG #### [facility] [address] [place] [id number] [place] CNPNon 02-15-2024 CNPN Normal [facility] CNNURSEon 01-25-2024 CNNURSE Normal [facility] CNPNon 12-30-2023 CNPN Normal [facility] 25(OH)D3 SerPl-mCncon 2023 25-hydroxyvitamin D3 [Mass/Vol] 31.0 ng/mL Normal 31.0-80.0 [facility] Comment on above: Order Comment: Speci men Type: BLOOD SPECIMENOrdering Facility: [facility] Address: [address] [place] [address] Result Comment: Clas sification of 25 [place] Vitamin D status:Deficiency/Insufficiency: < or = 30 ng/ml.Sufficiency/Optimal Levels: 31-80 ng/mLToxicity: > 100 ng/mL.Test performed by chemiluminescent immunoassay. Performed By: #### 1 989-3 ####[facility] LABCLIA [id number] [place] [address] [place] CBC panel Auto (Bld)on 12-26 Erythrocyte distribution width (RBC) [Ratio] 14.6 % Normal 11.5-15.0 [facility] Comment on above: Order Comment: Speci men Type: BLOOD SPECIMENOrdering Facility: [facility] Address: [address] [place] [address] Performed By: #### 5 8410-2 ####[facility] LABCLIA [id number] [place] [address] Hematocrit (Bld) [Volume fraction] 39.6 % Normal 36.0-46.0 [facility] Comment on above: Order Comment: Speci men Type: BLOOD SPECIMENOrdering Facility: [facility] Address: [address] [place] [address] Performed By: #### 5 8410-2 ####[facility] LABCLIA [id number] [place] [address] Hemoglobin (Bld) [Mass/Vol] 13.0 g/dL Normal 11.5-15.5 [facility] Comment on above: Order Comment: Speci men Type: BLOOD SPECIMENOrdering Facility: [facility] Address: [address] [place] [address] Performed By: #### 5 8410-2 ####[facility] LABCLIA [id number] [place] [address] MCH (RBC) [Entitic mass] 30.3 pg Normal 26.0-34.0 [facility] Comment on above: Order Comment: Speci men Type: BLOOD SPECIMENOrdering Facility: [facility] Address: [address] [place] [address] Performed By: #### 5 8410-2 ####[facility] LABCLIA [id number] [place] [address] MCHC (RBC) [Mass/Vol] 32.8 g/dL Normal 30.5-36.0 [facility] Comment on above: Order Comment: Speci men Type: BLOOD SPECIMENOrdering Facility: [facility] Address: [address] [place] [address] Performed By: #### 5 8410-2 ####[facility] LABCLIA [id number] [place] [address] MCV (RBC) [Entitic vol] 92.3 fL Normal 80.0-100.0 [facility] Comment on above: Order Comment: Speci men Type: BLOOD SPECIMENOrdering Facility: [facility] Address: [address] [place] [address] Performed By: #### 5 8410-2 ####[facility] LABCLIA [id number] [place] [address] Nucleated RBC (Bld) [#/Vol] 10*3/uL Normal <0.01 [facility] Comment on above: Order Comment: Speci men Type: BLOOD SPECIMENOrdering Facility: [facility] Address: [address] [place] [address] Performed By: #### 5 8410-2 ####[facility] LABCLIA [id number] [place] [address] Platelet mean volume (Bld) [Entitic vol] 9.8 fL Normal 9.0-12.7 [facility] Comment on above: Order Comment: Speci men Type: BLOOD SPECIMENOrdering Facility: [facility] Address: [address] [place] [address] Performed By: #### 5 8410-2 ####[facility] LABCLIA [id number] [place] [address] Platelets (Bld) [#/Vol] 309 10*3/uL Normal 150-400 [facility] Comment on above: Order Comment: Speci men Type: BLOOD SPECIMENOrdering Facility: [facility] Address: [address] [place] [address] Performed By: #### 5 8410-2 ####[facility] LABIA [id number] [place] [address] RBC (Bld) [#/Vol] 4.29 10*6/uL Normal 3.90-5.20 [facility] Comment on above: Order Comment: Speci men Type: BLOOD SPECIMENOrdering Facility: [facility] Address: [address] [place] [address] Performed By: #### 5 8410-2 ####[facility] LABCLIA [id number] [place] [address] WBC (Bld) [#/Vol] 14.93 10*3/uL High 3.70-11.00 [facility] Comment on above: Order Comment: Speci men Type: BLOOD SPECIMENOrdering Facility: [facility] Address: [address] [place] [address] Performed By: #### 5 8410-2 ####[facility] LABCLIA [id number] [place] [address] CNNURSEon 12-27-2023 CNNURSE Normal [facility] CNOVSPon 12-27-2023 CNOVSP Normal [facility] CNPNon 12-27-2023 CNPN Normal [facility] CRP SerPl-mCncon 12-27-2023 CRP [Mass/Vol] mg/L Normal <0.9 [facility] Comment on above: Order Comment: Speci men Type: BLOOD SPECIMENOrdering Facility: [facility] Address: [address] [place] [address] Performed By: #### 1 988-5 ####[facility] LABCLIA [id number] [place] [address] [place] [facility] Comprehensive metabolic 2000 panelon 12-27-2023 Albumin [Mass/Vol] 4.2 g/dL Normal 3.9-4.9 [facility] Comment on above: Order Comment: Speci men Type: BLOOD SPECIMENOrdering Facility: [facility] Address: [address] [place] [address] Performed By: #### 2 4323-8 ####[facility] LABCLIA [id number] [place] [address] ALP [Catalytic activity/Vol] 77 U/L Normal 34-123 [facility] Comment on above: Order Comment: Speci men Type: BLOOD SPECIMENOrdering Facility: [facility] Address: [address] [id number] Performed By: #### 2 4323-8 ####[facility] LABCLIA [id number] [place] [address] ALT [Catalytic activity/Vol] 23 U/L Normal 7-38 [facility] Comment on above: Order Comment: Speci men Type: BLOOD SPECIMENOrdering Facility: [facility] Address: [address] [place] [address] Performed By: #### 2 4323-8 ####[facility] LABCLIA [id number] [place] [address] Anion gap [Moles/Vol] 14 mmol/L Normal 8-15 [facility] Comment on above: Order Comment: Speci men Type: BLOOD SPECIMENOrdering Facility: [facility] Address: [address] [place] [address] Performed By: #### 2 4323-8 ####[facility] LABCLIA [id number] [place] [address] AST [Catalytic activity/Vol] 13 U/L Normal 13-35 [facility] Comment on above: Order Comment: Speci men Type: BLOOD SPECIMENOrdering Facility: [facility] Address: [address] [place] [address] Performed By: #### 2 4323-8 ####[facility] LABCLIA [id number] [place] [address] Bilirubin [Mass/Vol] mg/dL Low 0.2-1.3 [facility] Comment on above: Order Comment: Speci men Type: BLOOD SPECIMENOrdering Facility: [facility] Address: [address] [place] [address] Performed By: #### 2 4323-8 ####[facility] LABCLIA [id number] [place] [address] Calcium [Mass/Vol] 10.0 mg/dL Normal 8.5-10.2 [facility] Comment on above: Order Comment: Speci men Type: BLOOD SPECIMENOrdering Facility: [facility] Address: [address] [place] [address] Performed By: #### 2 4323-8 ####[facility] LABCLIA [id number] [place] [address] Chloride [Moles/Vol] 107 mmol/L Normal 98-107 [facility] Comment on above: Order Comment: Speci men Type: BLOOD SPECIMENOrdering Facility: [facility] Address: [address] [place] [address] Performed By: #### 2 4323-8 ####[facility] LABCLIA [id number] [place] [address] CO2 [Moles/Vol] 23 mmol/L Normal 22-30 [facility] Comment on above: Order Comment: Speci men Type: BLOOD SPECIMENOrdering Facility: [facility] Address: [address] [place] [address] Performed By: #### 2 4323-8 ####[facility] LABCLIA [id number] [place] [address] Creatinine [Mass/Vol] 0.70 mg/dL Normal 0.58-0.96 [facility] Comment on above: Order Comment: Speci men Type: BLOOD SPECIMENOrdering Facility: [facility] Address: [address] [place] [address] Performed By: #### 2 4323-8 ####[facility] LABCLIA [id number] [place] [address] Creatinine and Glomerular filtration rate.predicted panel (S/P/Bld) 110 mL/min/1.73m??? Normal >=60 [facility] Comment on above: Order Comment: Speci men Type: BLOOD SPECIMENOrdering Facility: [facility] Address: [address] [place], [place] [address] Result Comment: Erin mated Glomerular Filtration Rate [...] actual GFR. Performed By: #### 2 4323-8 ####[facility] LABCLIA [id number] [place] [address] Glucose [Mass/Vol] 120 mg/dL High 74-99 [facility] Comment on above: Order Comment: Speci moo Type: BLOOD SPECIMENOrdering Facility: [facility] Address: [address] [place] [address] Result Comment: The [place] [employer] (ADA) provides guidance for cutoff [...] Standards of Medical Care in Diabetes 2016, [place] [employer]. Diabetes Care. 2016.39(Suppl 1). Performed By: #### 2 4323-8 ####[facility] LABCLIA [id number] [place] [address] Potassium [Moles/Vol] 4.1 mmol/L Normal 3.7-5.1 [facility] Comment on above: Order Comment: Semaj cortés Type: BLOOD SPECIMENOrdering Facility: [facility] Address: [address] [place] [address] Performed By: #### 2 4323-8 ####[facility] LABCLIA [id number] [place] [address] Protein [Mass/Vol] 7.1 g/dL Normal 6.3-8.0 [facility] Comment on above: Order Comment: Speci men Type: BLOOD SPECIMENOrdering Facility: [facility] Address: [address] [place] [address] Performed By: #### 2 4323-8 ####[facility] LABCLIA [id number] [place] [address] Sodium [Moles/Vol] 144 mmol/L Normal 136-144 [facility] Comment on above: Order Comment: Speci men Type: BLOOD SPECIMENOrdering Facility: [facility] Address: [address] [place] [address] Performed By: #### 2 4323-8 ####[facility] LABCLIA [id number] [place] [address] Urea nitrogen [Mass/Vol] 13 mg/dL Normal 7-21 [facility] Comment on above: Order Comment: Speci men Type: BLOOD SPECIMENOrdering Facility: [facility] Address: [address] [place] [address] Performed By: #### 2 4323-8 ####[facility] LABCLIA [id number] [place] [address] ESR Westergren method (Bld) [Velocity]on 12-27-2023 ESR (Bld) [Velocity] 31 mm/h High 0-[facility] Comment on above: Order Comment: Speci men Type: BLOOD SPECIMENOrdering Facility: [facility] Address: [address] [place] [address] Performed By: #### 4 537-7 ####[facility] LABCLIA [id number] [facility] [id number] [place] [address] [place] MR LUMBAR SPINE [...] Normal Not Available CNNURSEon 11-29-2023 CNNURSE Normal [facility] CBC W Auto Differential pane l (Bld)on 11-24-2023 Basophils (Bld) [#/Vol] 0.06 10*3/uL Normal <0.11 [facility] Comment on above: Order Comment: Speci men Type: BLOOD SPECIMENOrdering Facility: [facility] Address: [address] [place] [address] Performed By: #### 5 7021-8 ####[facility] LABCLIA [id number] [place] [address] Basophils/100 WBC (Bld) 0.6 % Normal [facility] Comment on above: Order Comment: Speci men Type: BLOOD SPECIMENOrdering Facility: [facility] Address: [address] [id number] Performed By: #### 5 7021-8 ####[facility] LABCLIA [id number] [place] [address] Differential cell count method Nom (Bld) Auto Normal [facility] Comment on above: Order Comment: Speci men Type: BLOOD SPECIMENOrdering Facility: [facility] Address: [address] [place] [address] Performed By: #### 5 7021-8 ####[facility] LABCLIA [id number] [place] [address] Eosinophils (Bld) [#/Vol] 0.04 10*3/uL Normal <0.46 [facility] Comment on above: Order Comment: Speci men Type: BLOOD SPECIMENOrdering Facility: [facility] Address: [address] [place] [address] Performed By: #### 5 7021-8 ####[facility] LABCLIA [id number] [place] [address] Eosinophils/100 WBC (Bld) 0.4 % Normal [facility] Comment on above: Order Comment: Speci men Type: BLOOD SPECIMENOrdering Facility: [facility] Address: [address] [place] [address] Performed By: #### 5 7021-8 ####[facility] LABCLIA [id number] [place] [address] Erythrocyte distribution width (RBC) [Ratio] 14.8 % Normal 11.5-15.0 [facility] Comment on above: Order Comment: Speci men Type: BLOOD SPECIMENOrdering Facility: [facility] Address: [address] [place] [address] Performed By: #### 5 7021-8 ####[facility] LABCLIA [id number] [place] [address] Hematocrit (Bld) [Volume fraction] 40.6 % Normal 36.0-46.0 [facility] Comment on above: Order Comment: Speci men Type: BLOOD SPECIMENOrdering Facility: [facility] Address: [address] [place] [address] Performed By: #### 5 7021-8 ####[facility] LABCLIA [id number] [place] [address] Hemoglobin (Bld) [Mass/Vol] 13.0 g/dL Normal 11.5-15.5 [facility] Comment on above: Order Comment: Speci men Type: BLOOD SPECIMENOrdering Facility: [facility] Address: [address] [place] [address] Performed By: #### 5 7021-8 ####[facility] LABCLIA [id number] [place] [address] Immature granulocytes (Bld) [#/Vol] 0.05 10*3/uL Normal <0.10 [facility] Comment on above: Order Comment: Speci men Type: BLOOD SPECIMENOrdering Facility: [facility] Address: [address] [place] [address] Performed By: #### 5 7021-8 ####[facility] LABCLIA [id number] [place] [address] Immature granulocytes/100 WBC (Bld) 0.5 % Normal [facility] Comment on above: Order Comment: Speci men Type: BLOOD SPECIMENOrdering Facility: [facility] Address: [address] [place] [address] Performed By: #### 5 7021-8 ####[facility] LABCLIA [id number] [place] [address] Lymphocytes (Bld) [#/Vol] 1.87 10*3/uL Normal 1.00-4.00 [facility] Comment on above: Order Comment: Speci men Type: BLOOD SPECIMENOrdering Facility: [facility] Address: [address] [place] [address] Performed By: #### 5 7021-8 ####[facility] LABCLIA [id number] [place] [address] Lymphocytes/100 WBC (Bld) 17.5 % Normal [facility] Comment on above: Order Comment: Speci men Type: BLOOD SPECIMENOrdering Facility: [facility] Address: [address] [place] [address] Performed By: #### 5 7021-8 ####[facility] LABCLIA [id number] [place] [address] MCH (RBC) [Entitic mass] 29.3 pg Normal 26.0-34.0 [facility] Comment on above: Order Comment: Speci men Type: BLOOD SPECIMENOrdering Facility: [facility] Address: [address] [place] [address] Performed By: #### 5 7021-8 ####[facility] LABIA [id number] [place] [address] MCHC (RBC) [Mass/Vol] 32.0 g/dL Normal 30.5-36.0 [facility] Comment on above: Order Comment: Speci men Type: BLOOD SPECIMENOrdering Facility: [facility] Address: [address] [place] [address] Performed By: #### 5 7021-8 ####[facility] LABIA [id number] [place] [address] MCV (RBC) [Entitic vol] 91.4 fL Normal 80.0-100.0 [facility] Comment on above: Order Comment: Speci men Type: BLOOD SPECIMENOrdering Facility: [facility] Address: [address] [place] [address] Performed By: #### 5 7021-8 ####[facility] LABIA [id number] [place] [address] Monocytes (Bld) [#/Vol] 0.39 10*3/uL Normal <0.87 [facility] Comment on above: Order Comment: Speci men Type: BLOOD SPECIMENOrdering Facility: [facility] Address: [address] [place] [address] Performed By: #### 5 7021-8 ####[facility] LABIA [id number] [place] [address] Monocytes/100 WBC (Bld) 3.6 % Normal [facility] Comment on above: Order Comment: Speci men Type: BLOOD SPECIMENOrdering Facility: [facility] Address: [address] [place] [address] Performed By: #### 5 7021-8 ####[facility] LABCLIA [id number] [place] [address] Neutrophils (Bld) [#/Vol] 8.28 10*3/uL High 1.45-7.50 [facility] Comment on above: Order Comment: Speci men Type: BLOOD SPECIMENOrdering Facility: [facility] Address: [address] [place] [address] Performed By: #### 5 7021-8 ####[facility] LABCLIA [id number] [place] [address] Neutrophils/100 WBC (Bld) 77.4 % Normal [facility] Comment on above: Order Comment: Speci men Type: BLOOD SPECIMENOrdering Facility: [facility] Address: [address] [place] [address] Performed By: #### 5 7021-8 ####[facility] LABCLIA [id number] [place] [address] Nucleated RBC (Bld) [#/Vol] 10*3/uL Normal <0.01 [facility] Comment on above: Order Comment: Speci men Type: BLOOD SPECIMENOrdering Facility: [facility] Address: [address] [place] [address] Performed By: #### 5 7021-8 ####[facility] LABCLIA [id number] [place] [address] Nucleated RBC/100 WBC (Bld) [Ratio] 0.0 /100 WBC Normal [facility] Comment on above: Order Comment: Speci men Type: BLOOD SPECIMENOrdering Facility: [facility] Address: [address] [place] [address] Performed By: #### 5 7021-8 ####[facility] LABCLIA [id number] [place] [address] Platelet mean volume (Bld) [Entitic vol] 9.6 fL Normal 9.0-12.7 [facility] Comment on above: Order Comment: Speci men Type: BLOOD SPECIMENOrdering Facility: [facility] Address: [address] [place] [address] Performed By: #### 5 7021-8 ####[facility] LABCLIA [id number] [place] [address] Platelets (Bld) [#/Vol] 271 10*3/uL Normal 150-400 [facility] Comment on above: Order Comment: Speci men Type: BLOOD SPECIMENOrdering Facility: [facility] Address: [address] [place] [address] Performed By: #### 5 7021-8 ####[facility] LABIA [id number] [place] [address] RBC (Bld) [#/Vol] 4.44 10*6/uL Normal 3.90-5.20 [facility] Comment on above: Order Comment: Speci men Type: BLOOD SPECIMENOrdering Facility: [facility] Address: [address] [place] [address] Performed By: #### 5 7021-8 ####[facility] LABIA [id number] [place] [address] WBC (Bld) [#/Vol] 10.69 10*3/uL Normal 3.70-11.00 [facility] Comment on above: Order Comment: Speci men Type: BLOOD SPECIMENOrdering Facility: [facility] Address: [address] [place] [address] Performed By: #### 5 7021-8 ####[facility] LABIA [id number] [place] [address] Comprehensive metabolic 2000 panelon 11-24-2023 Albumin [Mass/Vol] 4.1 g/dL Normal 3.9-4.9 [facility] Comment on above: Order Comment: Speci men Type: BLOOD SPECIMENOrdering Facility: [facility] Address: [address] [place] [address] Performed By: #### 2 4323-8 ####[facility] LABCLIA [id number] [place] [address] ALP [Catalytic activity/Vol] 69 U/L Normal 34-123 [facility] Comment on above: Order Comment: Speci men Type: BLOOD SPECIMENOrdering Facility: [facility] Address: [address] [place] [address] Performed By: #### 2 4323-8 ####[facility] LABCLIA [id number] [place] [address] ALT [Catalytic activity/Vol] 24 U/L Normal 7-38 [facility] Comment on above: Order Comment: Speci men Type: BLOOD SPECIMENOrdering Facility: [facility] Address: [address] [place] [address] Performed By: #### 2 4323-8 ####[facility] LABCLIA [id number] [place] [address] Anion gap [Moles/Vol] 9 mmol/L Normal 8-15 [facility] Comment on above: Order Comment: Speci men Type: BLOOD SPECIMENOrdering Facility: [facility] Address: [address] [place] [address] Performed By: #### 2 4323-8 ####[facility] LABCLIA [id number] [place] [address] AST [Catalytic activity/Vol] 13 U/L Normal 13-35 [facility] Comment on above: Order Comment: Speci men Type: BLOOD SPECIMENOrdering Facility: [facility] Address: [address] [place] [address] Performed By: #### 2 4323-8 ####[facility] LABCLIA [id number] [place] [address] Bilirubin [Mass/Vol] 0.2 mg/dL Normal 0.2-1.3 [facility] Comment on above: Order Comment: Speci men Type: BLOOD SPECIMENOrdering Facility: [facility] Address: [address] [place] [address] Performed By: #### 2 4323-8 ####[facility] LABCLIA [id number] [place] [address] Calcium [Mass/Vol] 9.9 mg/dL Normal 8.5-10.2 [facility] Comment on above: Order Comment: Speci men Type: BLOOD SPECIMENOrdering Facility: [facility] Address: [address] [place] [address] Performed By: #### 2 4323-8 ####[facility] LABCLIA [id number] [place] [address] Chloride [Moles/Vol] 104 mmol/L Normal 98-107 [facility] Comment on above: Order Comment: Speci men Type: BLOOD SPECIMENOrdering Facility: [facility] Address: [address] [place] [address] Performed By: #### 2 4323-8 ####[facility] LABCLIA [id number] [place] [address] CO2 [Moles/Vol] 24 mmol/L Normal 22-30 [facility] Comment on above: Order Comment: Speci men Type: BLOOD SPECIMENOrdering Facility: [facility] Address: [address] [place] [address] Performed By: #### 2 4323-8 ####[facility] LABCLIA [id number] [place] [address] Creatinine [Mass/Vol] 0.74 mg/dL Normal 0.58-0.96 [facility] Comment on above: Order Comment: Speci men Type: BLOOD SPECIMENOrdering Facility: [facility] Address: [address] [place], [place] [address] Performed By: #### 2 4323-8 ####[facility] LABCLIA [id number] [place] [address] Creatinine and Glomerular filtration rate.predicted panel (S/P/Bld) 103 mL/min/1.73m??? Normal >=60 [facility] Comment on above: Order Comment: Semaj cortés Type: BLOOD SPECIMENOrdering Facility: [facility] Address: [address] [place] [address] Result Comment: Erin mated Glomerular Filtration Rate [...] actual GFR. Performed By: #### 2 4323-8 ####[facility] LABCLIA [id number] [place] [address] Glucose [Mass/Vol] 185 mg/dL High 74-99 [facility] Comment on above: Order Comment: Semaj cortés Type: BLOOD SPECIMENOrdering Facility: [facility] Address: [address] [place] [address] Result Comment: The [place] Diabetes Association (ADA) provides guidance for cutoff [...] Standards of Medical Care in Diabetes 2016, [place] [employer]. Diabetes Care. 2016.39(Suppl 1). Performed By: #### 2 4323-8 ####[facility] LABCLIA [id number] [place] [address] Potassium [Moles/Vol] 4.2 mmol/L Normal 3.7-5.1 [facility] Comment on above: Order Comment: Speci men Type: BLOOD SPECIMENOrdering Facility: [facility] Address: [address] [place] [address] Performed By: #### 2 4323-8 ####[facility] LABCLIA [id number] [place] [address] Protein [Mass/Vol] 7.1 g/dL Normal 6.3-8.0 [facility] Comment on above: Order Comment: Speci men Type: BLOOD SPECIMENOrdering Facility: [facility] Address: [address] [place] [address] Performed By: #### 2 4323-8 ####[facility] LABCLIA [id number] [place] [address] Sodium [Moles/Vol] 137 mmol/L Normal 136-144 [facility] Comment on above: Order Comment: Speci men Type: BLOOD SPECIMENOrdering Facility: [facility] Address: [address] [place] [address] Performed By: #### 2 4323-8 ####[facility] LABCLIA [id number] [place] [address] Urea nitrogen [Mass/Vol] 12 mg/dL Normal 7-21 [facility] Comment on above: Order Comment: Speci men Type: BLOOD SPECIMENOrdering Facility: [facility] Address: [address] [place] [address] Performed By: #### 2 4323-8 ####[facility] LABCLIA [id number] [place] [address] ESR Westergren method (Bld) [Velocity]on 11-24-2023 ESR (Bld) [Velocity] 32 mm/h High 0-20 [facility] Comment on above: Order Comment: Speci men Type: BLOOD SPECIMENOrdering Facility: [facility] Address: [address] [place] [address] Performed By: #### 4 537-7 ####[facility] LABCLIA [id number] [place] [id number] [place] Ferritin SerPl-mCncon 2023 Ferritin [Mass/Vol] 31.5 ng/mL Normal 14.7-205.1 [facility] Comment on above: Order Comment: Speci men Type: BLOOD SPECIMENOrdering Facility: [facility] Address: [address] [place] [address] Performed By: #### 2 276-4, 2284-8, 92506-0, 2131-9 ####[facility] LABCLIA [id number] [place] [address] [place] Folate SerPl-mCncon 11-24-19 Folate [Mass/Vol] 3.0 ng/mL Low >4.7 [facility] Comment on above: Order Comment: Speci men Type: BLOOD SPECIMENOrdering Facility: [facility] Address: [address] [place] [address] Performed By: #### 2 276-4, 2284-8, 42535-9, 2131-9 ####[facility] LABIA [id number] [place] [address] [place] IgA SerPl-mCncon 11-24-2023 IgA [Mass/Vol] 162 mg/dL Normal 70-400 [facility] Comment on above: Order Comment: Speci men Type: BLOOD SPECIMENOrdering Facility: [facility] Address: [address] [place] [address] Performed By: #### 2 458-8, 2465-3, 2472-9 ####[facility] LABIA [id number] [place] [address] [place] IgE SerPl-aCncon 11-24-2023 IgE Qn 5.8 kU/l Normal <114.0 [facility] Comment on above: Order Comment: Speci men Type: BLOOD SPECIMENOrdering Facility: [facility] Address: [address] [place] [address] Performed By: #### 1 9113-0 ####[facility] LABCLIA [id number] [place] [address] [place] IgG SerPl-mCncon 11-24-2023 IgG [Mass/Vol] 526 mg/dL Low 700-1600 [facility] Comment on above: Order Comment: Speci men Type: BLOOD SPECIMENOrdering Facility: [facility] Address: [address] [place] [address] Performed By: #### 2 458-8, 2465-3, 2472-9 ####[facility] LABIA [id number] [place] [address] [place] IgM SerPl-mCncon 11-24-2023 IgM [Mass/Vol] 389 mg/dL High 40-230 [facility] Comment on above: Order Comment: Speci men Type: BLOOD SPECIMENOrdering Facility: [facility] Address: [address] [place] [address] Performed By: #### 2 458-8, 2465-3, 2472-9 ####[facility] LABIA [id number] [place] [address] [place] Iron and Iron binding capaci ty panelon 11-24-2023 Iron [Mass/Vol] 65 ug/dL Normal 41-186 [facility] Comment on above: Order Comment: Speci men Type: BLOOD SPECIMENOrdering Facility: [facility] Address: [address] [place] [address] Performed By: #### 2 276-4, 2284-8, 09020-6, 2132-9 ####[facility] LABIA [id number] [place] [address] [place] Iron binding capacity [Mass/Vol] 373 ug/dL Normal 232-386 [facility] Comment on above: Order Comment: Speci men Type: BLOOD SPECIMENOrdering Facility: [facility] Address: [address] [place] [address] Performed By: #### 2 276-4, 2284-8, 85331-8, 9 ####[facility] LABCLIA [id number] [place] [address] [place] Iron/TIBC [Molar ratio] 17.4 % Normal 15.0-57.0 [facility] Comment on above: Order Comment: Speci men Type: BLOOD SPECIMENOrdering Facility: [facility] Address: [address] [place] [address] Performed By: #### 2 276-4, 4-8, 72388-1, 2132-01 ####[facility] LABCLIA [id number] [place] [address] [place] Vit B12 [facility] 024 Cobalamin (Vitamin B12) [Mass/Vol] 633 pg/mL Normal 232-1245 [facility] Comment on above: Order Comment: Speci men Type: BLOOD SPECIMENOrdering Facility: [facility] Address: [address] [place] [address] Performed By: #### 2 276-4, 4-8, 06576-7, 2132-01 ####[facility] LABCLIA [id number] [place] [address] [place] CNNURSEon 10-27-2023 CNNURSE Normal [facility] CNNURSEon 09-30-2023 CNNURSE Normal [facility] CNPNon 09-04-2023 CNPN Normal [facility](OH[facility] 25-hydroxyvitamin D3 [Mass/Vol] 32.2 ng/mL Normal 31.0-80.0 [facility] Comment on above: Order Comment: Speci men Type: BLOOD SPECIMENOrdering Facility: [facility] [facility] Address: [address] [place] [address] Result Comment: Clas sification of [place] Vitamin D status:Deficiency/Insufficiency: < or = 30 ng/ml.Sufficiency/Optimal Levels: 31-80 ng/mLToxicity: > 100 ng/mL.Test performed by chemiluminescent immunoassay. Performed By: #### 1 989-3 ####[facility] LABCLIA [id number] [facility] [id number] [address] [place] CBC W Auto Differential pane l (Bld)on 08-31-2023 Basophils (Bld) [#/Vol] 0.07 10*3/uL Normal <0.11 [facility] Comment on above: Order Comment: Speci men Type: BLOOD SPECIMENOrdering Facility: [facility] Address: [address] [place] [address] Performed By: #### 5 7021-8 ####[facility] LABCLIA [id number] [place] [address] Basophils/100 WBC (Bld) 0.5 % Normal [facility] Comment on above: Order Comment: Speci men Type: BLOOD SPECIMENOrdering Facility: [facility] Address: [address] [place] [address] Performed By: #### 5 7021-8 ####[facility] LABCLIA [id number] [place] [address] Differential cell count method Nom (Bld) Auto Normal [facility] Comment on above: Order Comment: Speci men Type: BLOOD SPECIMENOrdering Facility: [facility] Address: [address] [place] [address] Performed By: #### 5 7021-8 ####[facility] LABCLIA [id number] [place] [address] Eosinophils (Bld) [#/Vol] 0.20 10*3/uL Normal <0.46 [facility] Comment on above: Order Comment: Speci men Type: BLOOD SPECIMENOrdering Facility: [facility] Address: [address] [place] [address] Performed By: #### 5 7021-8 ####[facility] LABCLIA [id number] [place] [address] Eosinophils/100 WBC (Bld) 1.5 % Normal [facility] Comment on above: Order Comment: Speci men Type: BLOOD SPECIMENOrdering Facility: [facility] Address: [address] [place] [address] Performed By: #### 5 7021-8 ####[facility] LABCLIA [id number] [place] [address] Erythrocyte distribution width (RBC) [Ratio] 14.6 % Normal 11.5-15.0 [facility] Comment on above: Order Comment: Speci men Type: BLOOD SPECIMENOrdering Facility: [facility] Address: [address] [place] [address] Performed By: #### 5 7021-8 ####[facility] LABCLIA [id number] [place] [address] Hematocrit (Bld) [Volume fraction] 41.5 % Normal 36.0-46.0 [facility] Comment on above: Order Comment: Speci men Type: BLOOD SPECIMENOrdering Facility: [facility] Address: [address] [place] [address] Performed By: #### 5 7021-8 ####[facility] LABCLIA [id number] [place] [address] Hemoglobin (Bld) [Mass/Vol] 13.3 g/dL Normal 11.5-15.5 [facility] Comment on above: Order Comment: Speci men Type: BLOOD SPECIMENOrdering Facility: [facility] Address: [address] [place] [address] Performed By: #### 5 7021-8 ####[facility] LABCLIA [id number] [place] [address] Immature granulocytes (Bld) [#/Vol] 0.14 10*3/uL High <0.10 [facility] Comment on above: Order Comment: Speci men Type: BLOOD SPECIMENOrdering Facility: [facility] Address: [address] [place] [address] Performed By: #### 5 7021-8 ####[facility] LABCLIA [id number] [place] [address] Immature granulocytes/100 WBC (Bld) 1.0 % Normal [facility] Comment on above: Order Comment: Speci men Type: BLOOD SPECIMENOrdering Facility: [facility] Address: [address] [place] [address] Performed By: #### 5 7021-8 ####[facility] LABCLIA [id number] [place] [address] Lymphocytes (Bld) [#/Vol] 2.58 10*3/uL Normal 1.00-4.00 [facility] Comment on above: Order Comment: Speci men Type: BLOOD SPECIMENOrdering Facility: [facility] Address: [address] [place] [address] Performed By: #### 5 7021-8 ####[facility] LABCLIA [id number] [place] [address] Lymphocytes/100 WBC (Bld) 19.2 % Normal [facility] Comment on above: Order Comment: Speci men Type: BLOOD SPECIMENOrdering Facility: [facility] Address: [address] [place] [address] Performed By: #### 5 7021-8 ####[facility] LABCLIA [id number] [place] [address] MCH (RBC) [Entitic mass] 30.0 pg Normal 26.0-34.0 [facility] Comment on above: Order Comment: Speci men Type: BLOOD SPECIMENOrdering Facility: [facility] Address: [address] [place] [address] Performed By: #### 5 7021-8 ####[facility] LABCLIA [id number] [place] [address] MCHC (RBC) [Mass/Vol] 32.0 g/dL Normal 30.5-36.0 [facility] Comment on above: Order Comment: Speci men Type: BLOOD SPECIMENOrdering Facility: [facility] Address: [address] [place] [address] Performed By: #### 5 7021-8 ####[facility] LABCLIA [id number] [place] [address] MCV (RBC) [Entitic vol] 93.7 fL Normal 80.0-100.0 [facility] Comment on above: Order Comment: Speci men Type: BLOOD SPECIMENOrdering Facility: [facility] Address: [address] [place] [address] Performed By: #### 5 7021-8 ####[facility] LABCLIA [id number] [place] [address] Monocytes (Bld) [#/Vol] 0.75 10*3/uL Normal <0.87 [facility] Comment on above: Order Comment: Speci men Type: BLOOD SPECIMENOrdering Facility: [facility] Address: [address] [place] [address] Performed By: #### 5 7021-8 ####[facility] LABIA [id number] [place] [address] Monocytes/100 WBC (Bld) 5.6 % Normal [facility] Comment on above: Order Comment: Speci men Type: BLOOD SPECIMENOrdering Facility: [facility] Address: [address] [place] [address] Performed By: #### 5 7021-8 ####[facility] LABIA [id number] [place] [address] Neutrophils (Bld) [#/Vol] 9.69 10*3/uL High 1.45-7.50 [facility] Comment on above: Order Comment: Speci men Type: BLOOD SPECIMENOrdering Facility: [facility] Address: [address] [place] [address] Performed By: #### 5 7021-8 ####[facility] LABCLIA [id number] [place] [address] Neutrophils/100 WBC (Bld) 72.2 % Normal [facility] Comment on above: Order Comment: Speci men Type: BLOOD SPECIMENOrdering Facility: [facility] Address: [address] [place] [address] Performed By: #### 5 7021-8 ####[facility] LABCLIA [id number] [place] [address] Nucleated RBC (Bld) [#/Vol] 10*3/uL Normal <0.01 [facility] Comment on above: Order Comment: Speci men Type: BLOOD SPECIMENOrdering Facility: [facility] Address: [address] [place] [address] Performed By: #### 5 7021-8 ####[facility] LABCLIA [id number] [place] [address] Nucleated RBC/100 WBC (Bld) [Ratio] 0.0 /100 WBC Normal [facility] Comment on above: Order Comment: Speci men Type: BLOOD SPECIMENOrdering Facility: [facility] Address: [address] [place] [address] Performed By: #### 5 7021-8 ####[facility] LABCLIA [id number] [place] [address] Platelet mean volume (Bld) [Entitic vol] 9.6 fL Normal 9.0-12.7 [facility] Comment on above: Order Comment: Speci men Type: BLOOD SPECIMENOrdering Facility: [facility] Address: [address] [place] [address] Performed By: #### 5 7021-8 ####[facility] LABCLIA [id number] [place] [address] Platelets (Bld) [#/Vol] 304 10*3/uL Normal 150-400 [facility] Comment on above: Order Comment: Speci men Type: BLOOD SPECIMENOrdering Facility: [facility] Address: [address] [place] [address] Performed By: #### 5 7021-8 ####[facility] LABCLIA [id number] [place] [address] RBC (Bld) [#/Vol] 4.43 10*6/uL Normal 3.90-5.20 [facility] Comment on above: Order Comment: Speci men Type: BLOOD SPECIMENOrdering Facility: [facility] Address: [address] [place] [address] Performed By: #### 5 7021-8 ####[facility] LABIA [id number] [place] [address] WBC (Bld) [#/Vol] 13.43 10*3/uL High 3.70-11.00 [facility] Comment on above: Order Comment: Speci men Type: BLOOD SPECIMENOrdering Facility: [facility] Address: [address] [place] [address] Performed By: #### 5 7021-8 ####[facility] LABIA [id number] [place] [address] CNNURSEon 08-31-2023 CNNURSE Normal [facility] CRP SerPl-mCncon 08-31-2023 CRP [Mass/Vol] 0.6 mg/dL Normal <0.9 [facility] Comment on above: Order Comment: Speci men Type: BLOOD SPECIMENOrdering Facility: [facility] Address: [address] [place] [address] Performed By: #### 5 0190-8, 1987-09, 2275- ####[facility] LABCLIA [id number] [place] [address] [place] Comprehensive metabolic 2000 panelon 08-31-2023 Albumin [Mass/Vol] 4.0 g/dL Normal 3.9-4.9 [facility] Comment on above: Order Comment: Speci men Type: BLOOD SPECIMENOrdering Facility: [facility] Address: [address] [place] [address] Performed By: #### 2 4323-8 ####[facility] LABCLIA [id number] [place] [address] ALP [Catalytic activity/Vol] 69 U/L Normal 34-123 [facility] Comment on above: Order Comment: Speci men Type: BLOOD SPECIMENOrdering Facility: [facility] Address: [address] [place] [address] Performed By: #### 2 4323-8 ####[facility] LABCLIA [id number] [place] [address] ALT [Catalytic activity/Vol] 31 U/L Normal 7-38 [facility] Comment on above: Order Comment: Speci men Type: BLOOD SPECIMENOrdering Facility: [facility] Address: [address] [place] [address] Performed By: #### 2 4323-8 ####[facility] LABCLIA [id number] [place] [address] Anion gap [Moles/Vol] 11 mmol/L Normal 9-18 [facility] Comment on above: Order Comment: Speci men Type: BLOOD SPECIMENOrdering Facility: [facility] Address: [address] [place] [address] Performed By: #### 2 4323-8 ####[facility] LABCLIA [id number] [place] [address] AST [Catalytic activity/Vol] 18 U/L Normal 13-35 [facility] Comment on above: Order Comment: Speci men Type: BLOOD SPECIMENOrdering Facility: [facility] Address: [address] [place] [address] Performed By: #### 2 4323-8 ####[facility] LABCLIA [id number] [place] [address] Bilirubin [Mass/Vol] 0.3 mg/dL Normal 0.2-1.3 [facility] Comment on above: Order Comment: Speci men Type: BLOOD SPECIMENOrdering Facility: [facility] Address: [address] [place] [address] Performed By: #### 2 4323-8 ####[facility] LABCLIA [id number] [place] [address] Calcium [Mass/Vol] 10.0 mg/dL Normal 8.5-10.2 [facility] Comment on above: Order Comment: Speci men Type: BLOOD SPECIMENOrdering Facility: [facility] Address: [address] [place] [address] Performed By: #### 2 4323-8 ####[facility] LABCLIA [id number] [place] [address] Chloride [Moles/Vol] 105 mmol/L Normal 97-105 [facility] Comment on above: Order Comment: Speci men Type: BLOOD SPECIMENOrdering Facility: [facility] Address: [address] [place] [address] Performed By: #### 2 4323-8 ####[facility] LABCLIA [id number] [place] [address] CO2 [Moles/Vol] 25 mmol/L Normal 22-30 [facility] Comment on above: Order Comment: Speci men Type: BLOOD SPECIMENOrdering Facility: [facility] Address: [address] [place] [address] Performed By: #### 2 4323-8 ####[facility] LABCLIA [id number] [place] [address] Creatinine [Mass/Vol] 0.80 mg/dL Normal 0.58-0.96 [facility] Comment on above: Order Comment: Speci men Type: BLOOD SPECIMENOrdering Facility: [facility] Address: [address] [place], [place] [address] Performed By: #### 2 4323-8 ####[facility] LABCLIA [id number] [place] [address] Creatinine and Glomerular filtration rate.predicted panel (S/P/Bld) 94 mL/min/1.73m??? Normal >=60 [facility] Comment on above: Order Comment: Semaj cortés Type: BLOOD SPECIMENOrdering Facility: [facility] Address: [address] [place] [address] Result Comment: Erin mated Glomerular Filtration Rate [...] actual GFR. Performed By: #### 2 4323-8 ####[facility] LABCLIA [id number] [place] [address] Glucose [Mass/Vol] 160 mg/dL High 74-99 [facility] Comment on above: Order Comment: Semaj cortés Type: BLOOD SPECIMENOrdering Facility: [facility] Address: [address] [place] [address] Result Comment: The [place] [employer] (ADA) provides guidance for cutoff [...] Standards of Medical Care in Diabetes 2016, [place] [employer]. Diabetes Care. 2016.39(Suppl 1). Performed By: #### 2 4323-8 ####[facility] LABCLIA [id number] [place] [address] Potassium [Moles/Vol] 4.2 mmol/L Normal 3.7-5.1 [facility] Comment on above: Order Comment: Speci men Type: BLOOD SPECIMENOrdering Facility: [facility] Address: [address] [place] [address] Performed By: #### 2 4323-8 ####[facility] LABCLIA [id number] [place] [address] Protein [Mass/Vol] 6.9 g/dL Normal 6.3-8.0 [facility] Comment on above: Order Comment: Speci men Type: BLOOD SPECIMENOrdering Facility: [facility] Address: [address] [place] [address] Performed By: #### 2 4323-8 ####[facility] LABCLIA [id number] [place] [address] Sodium [Moles/Vol] 141 mmol/L Normal 136-144 [facility] Comment on above: Order Comment: Speci men Type: BLOOD SPECIMENOrdering Facility: [facility] Address: [address] [place] [address] Performed By: #### 2 4323-8 ####[facility] LABCLIA [id number] [place] [address] Urea nitrogen [Mass/Vol] 13 mg/dL Normal 7-21 [facility] Comment on above: Order Comment: Speci men Type: BLOOD SPECIMENOrdering Facility: [facility] Address: [address] [place] [address] Performed By: #### 2 4323-8 ####[facility] LABCLIA [id number] [place] [address] ESR Westergren method (Bld) [Velocity]on 08-31-2023 ESR (Bld) [Velocity] 37 mm/h High 0-20 [facility] Comment on above: Order Comment: Speci men Type: BLOOD SPECIMENOrdering Facility: [facility] Address: [address] [place] [address] Performed By: #### 4 537-7 ####[facility] LABCLIA [id number] [place] [address] [place] [facility] Ferritin [Mass/Vol] 60.3 ng/mL Normal 14.7-205.1 [facility] Comment on above: Order Comment: Speci men Type: BLOOD SPECIMENOrdering Facility: [facility] Address: [address] [place] [address] Performed By: #### 5 0190-8, 1987-09, 2275-08 ####[facility] LABIA [id number] [address] Folate SerPl-[facility] 08-31-19 Folate [Mass/Vol] ng/mL Normal >4.7 [facility] Comment on above: Order Comment: Speci men Type: BLOOD SPECIMENOrdering Facility: [facility] Address: [address] [place] [address] Result Comment: A re sult of > 20 ng/mL is not necessarily indicative of a pathologic or treatable condition: it reflects a limitation of the test methodology.Assay reference range: 4.8 to 24.2 ng/mL. Suitable for detection of folate deficiency.Reference:Folate III (Folate III) [package insert V 1.0 [place]]. [facility], [place], [place]: March 2015. Performed By: #### 2 284-8, 2132-9 ####[facility] LABIA [id number] [place] [address] [place] Iron and Iron binding capaci ty panelon 08-31-2023 Iron [Mass/Vol] 87 ug/dL Normal 41-186 [facility] Comment on above: Order Comment: Speci men Type: BLOOD SPECIMENOrdering Facility: [facility] Address: [address] [place] [address] Performed By: #### 5 0190-8, 1987-09, 2275-08 ####[facility] LABIA [id number] [address] [id number] [address] [place] Iron binding capacity [Mass/Vol] 356 ug/dL Normal 232-386 [facility] Comment on above: Order Comment: Speci men Type: BLOOD SPECIMENOrdering Facility: [facility] Address: [address] [place], [place] [address] Performed By: #### 5 0190-8, 1987-09, 2275-08 ####[facility] LABIA [id number] [place] [address] [place] Iron/TIBC [Molar ratio] 24.4 % Normal 15.0-57.0 [facility] Comment on above: Order Comment: Speci men Type: BLOOD SPECIMENOrdering Facility: [facility] Address: [address] [place] [address] Performed By: #### 5 0190-8, 1987-09, 2275-08 ####[facility] LABIA [id number] [place] [address] [place] Vit B12 [facility] Cobalamin (Vitamin B12) [Mass/Vol] 820 pg/mL Normal 232-1245 [facility] Comment on above: Order Comment: Speci men Type: BLOOD SPECIMENOrdering Facility: [facility] Address: [address] [place] [address] Performed By: #### 2 284-8, 2132-9 ####[facility] [id number] [place] [id number] [place] CNNURSEon 08-05-2023 CNNURSE Normal [facility] ECG 12 Leadon 07-13-2023 ECG revealed normal sinus rhythm [facility] Work Phone: CBC AUTO DIFFon 09-24-2022 BASO # 0.1 103/ul Normal 0.0-0.1 [facility] Comment on above: Performed By: #### U AMI #### [facility] [address] [place] [address] Dr. Manda York Basophils/100 WBC (Bld) 0.6 % Normal 0.2-2.0 [facility] Comment on above: Performed By: #### U AMIC #### [facility] [address] [place] [address] Dr. Manda York EO # 0.1 103/ul Normal 0.0-0.7 [facility] Comment on above: Performed By: #### U AMIC #### [facility] [address] [place] [address] Dr. Manda York Eosinophils/100 WBC (Bld) 0.6 % Critically low 0.9-7.0 [facility] Comment on above: Performed By: #### U AMIC #### [facility] [address] [place] [address] Dr. Manda York Erythrocyte distribution width (RBC) [Ratio] 14.6 % Normal 11.0-15.0 [facility] Comment on above: Performed By: #### U AMIC #### [facility] [address] [place] [address] Dr. Manda York Hematocrit (Bld) [Volume fraction] 43.4 % Normal 36.0-48.0 [facility] Comment on above: Performed By: #### U AMIC #### [facility] [address] [place] [address] Dr. Manda York Hemoglobin (Bld) [Mass/Vol] 13.7 g/dL Normal 12.0-16.0 [facility] Comment on above: Performed By: #### U AMIC #### [facility] [address] [place] [address] Dr. Manda York IG # 0.12 10e3/ul Critically high 0.00-0.03 [facility] Comment on above: Performed By: #### U AMIC #### [facility] [address] [place] [address] Dr. Manda York IG % 0.8 % Critically high 0.0-0.5 [facility] Comment on above: Performed By: #### U AMIC #### [facility] [address] [place] [address] Dr. Manda York LYMPH # 2.6 103/ul Normal 1.2-3.8 [facility] Comment on above: Performed By: #### U AMIC #### [facility] [address] [place] [address] Dr. Manda York Lymphocytes/100 WBC (Bld) 18.3 % Critically low 20.5-60.0 [facility] Comment on above: Performed By: #### U AMIC #### [facility] [address] [place] [address] Dr. Manda York MANUAL DIFF REQ NO [facility] Comment on above: Performed By: #### U AMIC #### [facility] [address] [place] [address] Dr. Manda York MCH (RBC) [Entitic mass] 29.0 pg Normal 26.7-34.0 [facility] Comment on above: Performed By: #### U AMIC #### [facility] [address] [place] [address] Dr. Manda York MCHC (RBC) [Mass/Vol] 31.6 g/dL Normal 29.9-35.2 [facility] Comment on above: Performed By: #### U AMIC #### [facility] [address] [place] [address] Dr. Manda York MCV (RBC) [Entitic vol] 91.8 fL Normal 81.0-99.0 [facility] Comment on above: Performed By: #### U AMIC #### [facility] [address] [place] [address] Dr. Manda York MONO # 0.7 103/ul Normal 0.3-0.8 [facility] Comment on above: Performed By: #### U AMIC #### [facility] [address] [place] [address] Dr. Manda York Monocytes/100 WBC (Bld) 5.1 % Normal 1.7-12.0 [facility] Comment on above: Performed By: #### U AMIC #### [facility] [address] [place] [address] Dr. Manda York NEUT # 10.6 103/ul Critically high 1.4-6.5 [facility] Comment on above: Performed By: #### U AMIC #### [facility] [address] [place] [address] [address] Manda York Neutrophils/100 WBC (Bld) 74.6 % Normal 43.0-75.0 [facility] Comment on above: Performed By: #### U AMIC #### [facility] [address] [place] [address] [address] Manda York Platelet mean volume (Bld) [Entitic vol] 9.4 fL Critically low 9.5-13.5 [facility] Comment on above: Performed By: #### U AMIC #### [facility] [address] [place] [address] Dr. Manda York PLT 307 103/ul Normal 150-450 [facility] Comment on above: Performed By: #### U AMIC #### [facility] [address] [place] [address] [address] Manda York RBC 4.73 106/ul Normal 4.20-5.40 [facility] Comment on above: Performed By: #### U AMIC #### [facility] [address] [place] [address] [address] Manda York WBC 14.2 103/ul Critically high 4.0-11.0 [facility] Comment on above: Performed By: #### U AMIC #### [facility] [address] [place] [address] Dr. Manda York FREE T4on 09-24-2022 Free T4 [Mass/Vol] 1.31 ng/dL Normal 0.76-1.46 [facility] Comment on above: Performed By: #### F T4 #### [facility] [address] [place] [address] Dr. Manda York GLYCOHEMOGLOBIN A1Con 2022 ADA RECOMMENDATION SEE BELOW Normal [facility] Comment on above: Result Comment: ADA RECOMMENDED LIMIT 4.0 - 6.0 ADA THERAPEUTIC TARGET < 7.0 ACTION SUGGESTED > 7.0 Performed By: #### A 1C #### [facility] [address] [place] [address] Dr. Manda York Glucose [Mass/Vol] 120 mg/dL Normal [facility] Comment on above: Performed By: #### A 1C #### [facility] [address] [place] [address] Dr. Manda York HbA1c (Bld) [Mass fraction] 5.8 % Normal 4.5-6.2 [facility] Comment on above: Performed By: #### A 1C #### [facility] [address] [place] [address] Dr. Manda York PREG QUANT HCGon 09-24-2022 HCG QUANT <1 Normal [facility] Comment on above: Performed By: #### F T4 #### [facility] [address] [place] [address] Dr. Manda York HCG RANGE SEE BELOW Normal [facility] Comment on above: Result Comment: 5-50 0.2-1 WEEK 50-500 1-2 WEEKS 100-5,000 2-3 WEEKS 500-10,000 3-4 WEEKS 1,000-50,000 4-5 WEEKS 10,000-100,000 5-6 WEEKS 15,000-200,000 6-8 WEEKS 10,000-100,000 2-3 MONTHS Performed By: #### F T4 #### [facility] [address] [place] [address] Dr. Manda York PROTIMEon 09-24-2022 INR Coag (PPP) [Relative time] {INR} Normal [facility] Comment on above: Performed By: #### F T4 #### [facility] [address] [place], [place] [address] Dr. Manda York INR GUIDELINES SEE BELOW Normal [facility] Comment on above: Result Comment: SHERRY RED INR: 2.0 - 3.0 CONDITIONS NOT LISTED BELOW 2.5 - 3.5 FOR PROSTHETIC HEART VALVE REPLACEMENT 2.5 - 3.5 RECURRENT THROMBOSIS Performed By: #### F T4 #### [facility] [address] [place] [address] Dr. Manda York PT Coag (PPP) [Time] 9.6 s Normal 9.0-11.6 [facility] Comment on above: Performed By: #### F T4 #### [facility] [address] [place] [address] Dr. Manda York PTTon 09-24-2022 aPTT Coag (Bld) [Time] 28.2 s Normal 22.3-36.2 Th [facility] Comment on above: Performed By: #### F T4 #### [facility] [address] [place] [address] Dr. Manda York TSHon 09-24-2022 TSH 0.300 uIU/mL Critically low 0.358-3.740 [facility] Comment on above: Performed By: #### F T4 #### [facility] [address] [place] [address] Dr. Manda York US PELVIS TRANSVAGon 023 [...] by: AURORA SHAIKH Date: 2022-09-24 17:50 Normal [facility] PAP ACOG PANEL 2: 30 to 65on 09-18-2022 . . Normal [facility] Comment on above: Result Comment: Perf ormed at: WB Performed By: #### F T4 #### [facility] [address] [place] [address] Dr. Manda York Age Gdln ACOG Testing 30-65 Normal [facility] Comment on above: Performed By: #### F T4 #### [facility] [address] [place] [address] Dr. Manda York DIAGNOSIS: Comment Normal [facility] Comment on above: Result Comment: NEGA TIVE FOR INTRAEPITHELIAL LESION OR MALIGNANCY. Performed at: WB Performed By: #### F T4 #### [facility] [address] [address] [address] Manda York HPV Aptima Negative Normal Negative [facility] Comment on above: Result Comment: This nucleic acid amplification test detects fourteen high-risk HPV types (16,18,31,33,35,39,45,51,52,56,58,59,66,68) without differentiation. Performed at: =G Performed By: #### F T4 #### [facility] [address] [place] [address] Dr. Manda York HPV Genotype Reflex Comment Normal [facility] Comment on above: Result Comment: Crit eria not met, HPV Genotype not performed. Performed at: WB Performed By: #### F T4 #### [facility] [address] [place] [address] Dr. Manda York Methodology: Comment Normal [facility] Comment on above: Result Comment: This liquid based ThinPrep(R) pap test was screened with the use of an image guided system. Performed at: WB Performed By: #### F T4 #### [facility] [address] [place] [address] Dr. Manda York Note: Comment Normal [facility] Comment on above: Result Comment: The [...] WB Performed By: #### F T4 #### [facility] [address] [address] [address] Manda York Performed by: Comment Normal [facility] Comment on above: Result Comment: Lorena Peters, Stretching Machine Operator (ASCP) Performed at: WB Performed By: #### F T4 #### [facility] [address] [place], [place] [address] Dr. Manda York Specimen adequacy: Comment Normal [facility] Comment on above: Result Comment: Sati sfactory for evaluation. Endocervical and/or squamous metaplastic cells (endocervical component) are present. Performed at: WB Performed By: #### F T4 #### [facility] [address] [place], [place] [address] Dr. Manda York Cytology Cervical or vaginal smear or scraping studyOrdered By: Hazel Torres on 09-10-2022 [facility] MG MAMM SCREEN 3D MARK CADon 09-01-2022 MG MAMM SCREEN 3D MARK CAD Patient: ARIADNA HALEY Exam Date: 09/01/2022 : 1980 Gender:F Ordering : DR MANUEL FERRIS . Admission #: [id number] Family : Order #: [id number] CLICK HERE TO VIEW EXAM RADIOLOGY REPORT [...] stomach cancer at age 56. LOCATION: [facility] BREAST COMPOSITION: Scattered areas fibroglandular density. [...] Yusuf M.D. on 09/02/2022 at 12:32 Normal [facility] MRI KNEE RT WO CONon 022 [...] by: MANUEL GOMEZ Date: 2022-04-01 08:24 Normal [facility] PNEUMOCOCCAL IGG ABS, 23 SER OTYPESon 03-21-2022 Pneumococcal Interpretation See Note [facility] S. pneumoniae 1 IgG (S) [Mass/Vol] 0.27 ug/mL [facility] S. pneumoniae 12 IgG (S) [Mass/Vol] 0.08 ug/mL [facility] S. pneumoniae 14 IgG (S) [Mass/Vol] 0.19 ug/mL [facility] S. pneumoniae 17 IgG (S) [Mass/Vol] 1.72 ug/mL [facility] S. pneumoniae 19 IgG (S) [Mass/Vol] 1.52 ug/mL [facility] S. pneumoniae 2 IgG (S) [Mass/Vol] 0.44 ug/mL [facility] S. pneumoniae 20 IgG (S) [Mass/Vol] 1.53 ug/mL [facility] S. pneumoniae 22 IgG (S) [Mass/Vol] 0.99 ug/mL [facility] S. pneumoniae 23 IgG (S) [Mass/Vol] 0.14 ug/mL [facility] S. pneumoniae 3 IgG (S) [Mass/Vol] 0.36 ug/mL [facility] S. pneumoniae 34 IgG (S) [Mass/Vol] 5.77 ug/mL [facility] S. pneumoniae 4 IgG (S) [Mass/Vol] 0.06 ug/mL [facility] S. pneumoniae 43 IgG (S) [Mass/Vol] 0.93 ug/mL [facility] S. pneumoniae 5 IgG (S) [Mass/Vol] 0.89 ug/mL [facility] S. pneumoniae 8 IgG (S) [Mass/Vol] 0.58 ug/mL [facility] S. pneumoniae 9 IgG (S) [Mass/Vol] 0.4 ug/mL [facility] S. pneumoniae Gabonese type 15B IgG (S) [Mass/Vol] 8.27 ug/mL [facility] S. pneumoniae Gabonese type 18C IgG (S) [Mass/Vol] 0.39 ug/mL [facility] S. pneumoniae Gabonese type 19A IgG (S) [Mass/Vol] 17.72 ug/mL [facility] S. pneumoniae Gabonese type 33F IgG (S) [Mass/Vol] 3.04 ug/mL [facility] S. pneumoniae Gabonese type 6B IgG (S) [Mass/Vol] 0.82 ug/mL [facility] S. pneumoniae Gabonese type 7F IgG (S) [Mass/Vol] 0.34 ug/mL [facility] S. pneumoniae Gabonese type 9V IgG (S) [Mass/Vol] 0.78 ug/mL [facility] XR KNEE RT 4V or [...] by: KRISTINA GARRETT Date: 2022-03-21 16:47 Normal [facility] DIPHTHER/TETANUS ABon 2021 C. diphtheriae IgG Qn (S) 0.1 IU/mL [facility] C. tetani toxoid IgG IA Qn 1 IU/mL [facility] IGA BLDon 03-18-2022 IgA [Mass/Vol] 182 mg/dL 70 - 400 mg/dL [facility] IGE Don 03-18-2022 IgE Qn 12.3 kU/l <114.0 kU/l [facility] IGGon 03-18-2022 IgG [Mass/Vol] 618 mg/dL Low 700 - 1,600 mg/dL [facility] IGMon 03-18-2022 IgM [Mass/Vol] 514 mg/dL High 40 - 230 mg/dL [facility] Immunodeficiency panel FC (B ld)on 03-18-2022 CD3 cells (Bld) [#/Vol] 2841 cells/uL High 958 - 2,388 cells/uL [facility] CD3 cells/100 cells (Bld) 81 % 60 - 89 % [facility] CD3+CD4+ (T4 helper) cells (Bld) [#/Vol] 1621 cells/uL 533 - 1,674 cells/uL [facility] CD3+CD4+ (T4 helper) cells/100 cells (Bld) 46 % 34 - 61 % [facility] CD3+CD4+ (T4 helper) cells/CD3+CD8+ (T8 suppressor cells) cells (Bld) [# ratio] 1.55 % 1.10 - 3.25 [facility] CD3+CD8+ (T8 suppressor cells) cells (Bld) [#/Vol] 1049 cells/uL High 175 - 958 cells/uL [facility] CD3+CD8+ (T8 suppressor cells) cells/100 cells (Bld) 30 % 10 - 41 % [facility] CD3-CD16+CD56+ (Natural killer) cells (Bld) [#/Vol] 193 cells/uL 102 - 565 cells/uL [facility] CD3-CD16+CD56+ (Natural killer) cells/100 cells (Bld) 5 % 5 - 25 % [facility] CD3-CD19+ cells (Bld) [#/Vol] 475 cells/uL 75 - 660 cells/uL [facility] CD3-CD19+ cells/100 cells (Bld) 13 % 5 - 22 % [facility] CBC W Auto Differential pane l (Bld)on 03-17-2022 Basophils (Bld) [#/Vol] 0.07 10*3/uL <0.11 k/uL [facility] Basophils/100 WBC (Bld) 0.6 % [facility] Differential cell count method Nom (Bld) Auto [facility] Eosinophils (Bld) [#/Vol] 0.18 10*3/uL <0.46 k/uL [facility] Eosinophils/100 WBC (Bld) 1.6 % [facility] Erythrocyte distribution width (RBC) [Ratio] 14.6 % 11.5 - 15.0 % [facility] Hematocrit (Bld) [Volume fraction] 40.5 % 36.0 - 46.0 % [facility] Hemoglobin (Bld) [Mass/Vol] 13.0 g/dL 11.5 - 15.5 g/dL [facility] Immature granulocytes (Bld) [#/Vol] 0.06 10*3/uL <0.10 k/uL [facility] Immature granulocytes/100 WBC (Bld) 0.5 % [facility] Lymphocytes (Bld) [#/Vol] 2.97 10*3/uL 1.00 - 4.00 k/uL [facility] Lymphocytes/100 WBC (Bld) 26.9 % [facility] MCH (RBC) [Entitic mass] 28.4 pg 26.0 - 34.0 pg [facility] MCHC (RBC) [Mass/Vol] 32.1 g/dL 30.5 - 36.0 g/dL [facility] MCV (RBC) [Entitic vol] 88.4 fL 80.0 - 100.0 fL [facility] Monocytes (Bld) [#/Vol] 0.79 10*3/uL <0.87 k/uL [facility] Monocytes/100 WBC (Bld) 7.2 % [facility] Neutrophils (Bld) [#/Vol] 6.97 10*3/uL 1.45 - 7.50 k/uL [facility] Neutrophils/100 WBC (Bld) 63.2 % [facility] Nucleated RBC (Bld) [#/Vol] <0.01 k/uL [facility] Nucleated RBC/100 WBC (Bld) [Ratio] 0.0 /100 WBC [facility] Platelet mean volume (Bld) [Entitic vol] 9.9 fL 9.0 - 12.7 fL [facility] Platelets (Bld) [#/Vol] 314 10*3/uL 150 - 400 k/uL [facility] RBC (Bld) [#/Vol] 4.58 10*6/uL 3.90 - 5.2 0 m/uL [facility] WBC (Bld) [#/Vol] 11.04 10*3/uL High 3.70 - 11 .00 k/uL [facility] ECHOCARDIO M/2D COMPLETEon 1 ECHOCARDIO M/2D COMPLETE Patient: ARIADNA HALEY Exam Date: 03/12/2022 : 1980 Gender:F Ordering : DR MANUEL FERRIS . Admission #: [id number] Family : Order #: [id number] CLICK HERE TO VIEW EXAM ECHOCARDIOGRAM REPORT [...] M.D. on 03/16/2022 at 16:47 Normal [facility] INSULINon 03-11-2022 Insulin 17.8 uIU/mL Normal 2.6-24.9 [facility] Comment on above: Performed By: #### C BC #### [facility] [address] [place] [address] Dr. Manda York CBC AUTO DIFFon 03-09-2022 BASO # 0.1 103/ul Normal 0.0-0.1 [facility] Comment on above: Performed By: #### C BC #### [facility] [address] [place] [address] Dr. Manda York Basophils/100 WBC (Bld) 0.4 % Normal 0.2-2.0 [facility] Comment on above: Performed By: #### C BC #### [facility] [address] [place] [address] Dr. Manda York EO # 0.2 103/ul Normal 0.0-0.7 [facility] Comment on above: Performed By: #### C BC #### [facility] [address] [place] [address] Dr. Manda York Eosinophils/100 WBC (Bld) 1.2 % Normal 0.9-7.0 [facility] Comment on above: Performed By: #### C BC #### [facility] [address] [place] [address] Dr. Manda York Erythrocyte distribution width (RBC) [Ratio] 14.6 % Normal 11.0-15.0 [facility] Comment on above: Performed By: #### C BC #### [facility] [address] [place] [address] Dr. Manda York Hematocrit (Bld) [Volume fraction] 39.2 % Normal 36.0-48.0 [facility] Comment on above: Performed By: #### C BC #### [facility] [address] [place] [address] Dr. Manda York Hemoglobin (Bld) [Mass/Vol] 12.7 g/dL Normal 12.0-16.0 [facility] Comment on above: Performed By: #### C BC #### [facility] [address] [place] [address] Dr. Manda York IG # 0.06 10e3/ul Critically high 0.00-0.03 [facility] Comment on above: Performed By: #### C BC #### [facility] [address] [place] [address] Dr. Manda York IG % 0.5 % Normal 0.0-0.5 [facility] Comment on above: Performed By: #### C BC #### [facility] [address] [place] [address] Dr. Manda York LYMPH # 3.7 103/ul Normal 1.2-3.8 [facility] Comment on above: Performed By: #### C BC #### [facility] [address] [place] [address] Dr. Manda York Lymphocytes/100 WBC (Bld) 31.0 % Normal 20.5-60.0 [facility] Comment on above: Performed By: #### C BC #### [facility] [address] [place] [address] Dr. Manda York MANUAL DIFF REQ NO Normal [facility] Comment on above: Performed By: #### C BC #### [facility] [address] [place] [address] Dr. Manda York MCH (RBC) [Entitic mass] 28.9 pg Normal 26.7-34.0 [facility] Comment on above: Performed By: #### C BC #### [facility] [address] [place] [address] Dr. Manda York MCHC (RBC) [Mass/Vol] 32.4 g/dL Normal 29.9-35.2 [facility] Comment on above: Performed By: #### C BC #### [facility] [address] [place] [address] Dr. Manda York MCV (RBC) [Entitic vol] 89.1 fL Normal 81.0-99.0 [facility] Comment on above: Performed By: #### C BC #### [facility] [address] [place] [address] Dr. Manda York MONO # 0.7 103/ul Normal 0.3-0.8 [facility] Comment on above: Performed By: #### C BC #### [facility] [address] [place] [address] Dr. Manda York Monocytes/100 WBC (Bld) 5.8 % Normal 1.7-12.0 [facility] Comment on above: Performed By: #### C BC #### [facility] [address] [place] [address] Dr. Manda York NEUT # 7.3 103/ul Critically high 1.4-6.5 [facility] Comment on above: Performed By: #### C BC #### [facility] [address] [place] [address] Dr. Manda York Neutrophils/100 WBC (Bld) 61.1 % Normal 43.0-75.0 [facility] Comment on above: Performed By: #### C BC #### [facility] [address] [place] [address] Dr. Manda York Platelet mean volume (Bld) [Entitic vol] 9.7 fL Normal 9.5-13.5 [facility] Comment on above: Performed By: #### C BC #### [facility] [address] [place] [address] Dr. Manda York PLT 297 103/ul Normal 150-450 [facility] Comment on above: Performed By: #### C BC #### [facility] [address] [address] [address] Manda York RBC 4.40 106/ul Normal 4.20-5.40 [facility] Comment on above: Performed By: #### C BC #### [facility] [address] [address] [address] Manda York WBC 12.0 103/ul Critically high 4.0-11.0 [facility] Comment on above: Performed By: #### C BC #### [facility] [address] [address] [address] Manda York FREE THYROXINE INDEX T7on FTI 3.81 Normal 1.30-4.50 [facility] Comment on above: Performed By: #### U AMIC #### [facility] [address] [place] [address] Dr. Manda York T3U 34.0 % Normal 30.0-39.0 [facility] Comment on above: Performed By: #### Oren AMIC #### [facility] [address] [place] [address] Dr. Manda York T4 [Mass/Vol] 11.20 ug/dL Normal 4.80-13.90 [facility] Comment on above: Performed By: #### U AMIC #### [facility] [address] [place] [address] Dr. Manda York GLYCOHEMOGLOBIN A1Con 2021 ADA RECOMMENDATION SEE BELOW Normal [facility] Comment on above: Result Comment: ADA RECOMMENDED LIMIT 4.0 - 6.0 ADA THERAPEUTIC TARGET < 7.0 ACTION SUGGESTED > 7.0 Performed By: #### LUIGI PATRICK #### [facility] [address] [place] [address] Dr. Manda York Glucose [Mass/Vol] 117 mg/dL Normal [facility] Comment on above: Performed By: #### LUIGI PATRICK #### [facility] [address] [address] [address] Manda York HbA1c (Bld) [Mass fraction] 5.7 % Normal 4.5-6.2 [facility] Comment on above: Performed By: #### [facility] #### [facility] [address] [address] [address] Manda York IRONon 03-09-2022 Iron [Mass/Vol] 61.0 ug/dL Normal 50.0-170.0 [facility] Comment on above: Performed By: #### C BC #### [facility] [address] [address] [address] Manda York LIPID PROFILEon 03-09-2022 CHOL-HDL RATIO NORM SEE BELOW Normal [facility] Comment on above: Result Comment: 3.3 - 4.4 LOW RISK 4.4 - 7.1 AVERAGE RISK 7.1 - 11.0 MODERATE RISK >11.0 HIGH RISK Performed By: #### U AMIC #### [facility] [address] [address] [address] Manda York Cholesterol [Mass/Vol] 260 mg/dL Critically high <=200 [facility] Comment on above: Performed By: #### U AMIC #### [facility] [address] [address] [address] Manda York Cholesterol in HDL [Mass/Vol] 38 mg/dL Critically low 40-60 [facility] Comment on above: Performed By: #### U AMIC #### [facility] [address] [address] [address] Manda York Cholesterol in LDL [Mass/Vol] 170.8 mg/dL Normal [facility] Comment on above: Performed By: #### U AMIC #### [facility] [address] [address] [address] Manda York Cholesterol.total/Chol esterol in HDL [Mass ratio] 6.8 {ratio} Normal [facility] Comment on above: Performed By: #### U AMIC #### [facility] [address] [address] [address] Manda York HDL NORMAL > or = 60 mg/dl - LO W CARDIOVASCULAR RISK <40 mg/dl - HIGH CARDIOVASCULAR RISK Normal [facility] Comment on above: Performed By: #### U AMIC #### [facility] [address] [address] [address] Manda York LDL CALC NORMAL SEE BELOW Normal [facility] Comment on above: Result Comment: <100 mg/dl OPTIMAL 100 - 129 mg/dl NEAR OR ABOVE OPTIMAL 130 - 159 mg/dl BORDERLINE HIGH 160 - 189 mg/dl HIGH >190 mg/dl VERY HIGH Performed By: #### U AMIC #### [facility] [address] [address] [address] Manda York Triglyceride [Mass/Vol] 256 mg/dL Critically high <=150 [facility] Comment on above: Performed By: #### U AMIC #### [facility] [address] [address] [address] Manda York VLDL CALC 51.2 mg/dL Normal [facility] Comment on above: Performed By: #### U AMIC #### [facility] [address] [address] [address] Manda York PROF 14(COMP METB)on 022 Albumin [Mass/Vol] 3.8 g/dL Normal 3.4-5.0 [facility] Comment on above: Performed By: #### U AMIC #### [facility] [address] [address] [address] Manda York Albumin/Globulin [Mass ratio] 1.0 {ratio} Normal [facility] Comment on above: Performed By: #### U AMIC #### [facility] [address] [address] [address] Manda York ALP [Catalytic activity/Vol] 66 U/L Normal 46-116 [facility] Comment on above: Performed By: #### U AMIC #### [facility] [address] [address] [address] Manda York ALT [Catalytic activity/Vol] 27 U/L Normal 14-59 [facility] Comment on above: Performed By: #### U AMIC #### [facility] [address] [address] [address] Manda York Anion gap [Moles/Vol] 11.8 mmol/L Normal [facility] Comment on above: Performed By: #### U AMIC #### [facility] [address] [address] [address] Manda York AST [Catalytic activity/Vol] 9 U/L Critically low 15-37 [facility] Comment on above: Performed By: #### U AMIC #### [facility] [address] [address] [address] Manda York Bilirubin [Mass/Vol] 0.2 mg/dL Normal 0.2-1.0 [facility] Comment on above: Performed By: #### U AMIC #### [facility] [address] [address] [address] Manda York Calcium [Mass/Vol] 9.1 mg/dL Normal 8.5-10.1 [facility] Comment on above: Performed By: #### U AMIC #### [facility] [address] [address] [address] Manda York Chloride [Moles/Vol] 101 mmol/L Normal 98-107 [facility] Comment on above: Performed By: #### U AMIC #### [facility] [address] [address] [address] Manda York CO2 [Moles/Vol] 26.1 mmol/L Normal 21.0-32.0 [facility] Comment on above: Performed By: #### U AMIC #### [facility] [address] [address] [address] Manda York Creatinine [Mass/Vol] 0.80 mg/dL Normal 0.55-1.02 [facility] Comment on above: Performed By: #### U AMIC #### [facility] [address] [address] [address] Manda York EGFR-AF MALAYSIAN >60 Normal >=60 [facility] Comment on above: Performed By: #### U AMIC #### [facility] [address] [address] [address] Manda York EGFR-NON AF MALAYSIAN >60 Normal >=60 [facility] Comment on above: Performed By: #### U AMIC #### [facility] [address] [address] [address] Manda York Globulin (S) [Mass/Vol] 3.8 g/dL Normal [facility] Comment on above: Performed By: #### U AMIC #### [facility] [address] [address] [address] Manda York Glucose [Mass/Vol] 93 mg/dL Normal 74-106 [facility] Comment on above: Performed By: #### U AMIC #### [facility] [address] [address] [address] Manda York Potassium [Moles/Vol] 3.9 mmol/L Normal 3.5-5.1 [facility] Comment on above: Performed By: #### U AMIC #### [facility] [address] [address] [address] Manda York Protein [Mass/Vol] 7.6 g/dL Normal 6.4-8.2 [facility] Comment on above: Performed By: #### U AMIC #### [facility] [address] [place] [address] Dr. Manda York Sodium [Moles/Vol] 135 mmol/L Critically low 136-145 [facility] Comment on above: Performed By: #### U AMIC #### [facility] [address] [address] [address] Manda York Urea nitrogen [Mass/Vol] 10.0 mg/dL Normal 7.0-18.0 [facility] Comment on above: Performed By: #### U AMIC #### [facility] [address] [address] [address] Manda York Urea nitrogen/Creatinine [Mass ratio] 12.5 mg/mg Normal [facility] Comment on above: Performed By: #### U AMIC #### [facility] [address] [place] [address] Dr. Manda York TSHon 03-09-2022 TSH 0.610 uIU/mL Normal 0.358-3.740 [facility] Comment on above: Performed By: #### [facility] #### [facility] [address] [address] [address] Manda York B2 MICROGLOBULIN Bon 022 [id number] [Mass/Vol] 1.8 ug/mL 0.8 - 2.4 mg/L [facility] FERRITIN BLDon 03-05-2022 Ferritin [Mass/Vol] 33.2 ng/mL 14.7 - 2 05.1 ng/mL [facility] FOLATE SERUMon 03-05-2022 Folate [Mass/Vol] 6.6 ng/mL >4.7 ng/mL [facility] Iron and Iron binding capaci ty panelon 03-05-2022 Iron [Mass/Vol] 49 ug/dL 41 - 186 ug/dL [facility] Iron binding capacity [Mass/Vol] 392 ug/dL High 232 - 386 ug/dL [facility] Iron/TIBC [Molar ratio] 12.5 % Low 15.0 - 57.0 % [facility] CBC W Auto Differential pane l (Bld)on 03-04-2022 Basophils (Bld) [#/Vol] 0.07 10*3/uL <0.11 k/uL [facility] Basophils/100 WBC (Bld) 0.6 % [facility] Differential cell count method Nom (Bld) Auto [facility] Eosinophils (Bld) [#/Vol] 0.19 10*3/uL <0.46 k/uL [facility] Eosinophils/100 WBC (Bld) 1.7 % [facility] Erythrocyte distribution width (RBC) [Ratio] 14.7 % 11.5 - 15.0 % [facility] Hematocrit (Bld) [Volume fraction] 40.0 % 36.0 - 46.0 % [facility] Hemoglobin (Bld) [Mass/Vol] 13.0 g/dL 11.5 - 15.5 g/dL [facility] Immature granulocytes (Bld) [#/Vol] 0.07 10*3/uL <0.10 k/uL [facility] Immature granulocytes/100 WBC (Bld) 0.6 % [facility] Lymphocytes (Bld) [#/Vol] 3.31 10*3/uL 1.00 - 4.00 k/uL [facility] Lymphocytes/100 WBC (Bld) 30.2 % [facility] MCH (RBC) [Entitic mass] 28.9 pg 26.0 - 34.0 pg [facility] MCHC (RBC) [Mass/Vol] 32.5 g/dL 30.5 - 36.0 g/dL [facility] MCV (RBC) [Entitic vol] 88.9 fL 80.0 - 100.0 fL [facility] Monocytes (Bld) [#/Vol] 0.70 10*3/uL <0.87 k/uL [facility] Monocytes/100 WBC (Bld) 6.4 % [facility] Neutrophils (Bld) [#/Vol] 6.63 10*3/uL 1.45 - 7.50 k/uL [facility] Neutrophils/100 WBC (Bld) 60.5 % [facility] Nucleated RBC (Bld) [#/Vol] <0.01 k/uL [facility] Nucleated RBC/100 WBC (Bld) [Ratio] 0.0 /100 WBC [facility] Platelet mean volume (Bld) [Entitic vol] 9.6 fL 9.0 - 12.7 fL [facility] Platelets (Bld) [#/Vol] 355 10*3/uL 150 - 400 k/uL [facility] RBC (Bld) [#/Vol] 4.50 10*6/uL 3.90 - 5.2 0 m/uL [facility] WBC (Bld) [#/Vol] 10.97 10*3/uL 3.70 - 11 .00 k/uL [facility] Calcium.ionized [Moles/Vol]o n 03-04-2022 Calcium.ionized (Bld) [Mass/Vol] 1.26 mmol/L 1.08 - 1.30 mmol/L [facility] Calcium.ionized adjusted to pH 7.4 (Bld) [Moles/Vol] 1.25 mmol/L 1.08 - 1.30 mmol/L [facility] Comprehensive metabolic 2000 panelon 03-04-2022 Albumin [Mass/Vol] 4.3 g/dL 3.9 - 4.9 g/dL [facility] ALP [Catalytic activity/Vol] 70 U/L 34 - 123 U/L [facility] ALT [Catalytic activity/Vol] 26 U/L 7 - 38 U/L [facility] Anion gap [Moles/Vol] 7 mmol/L Low 9 - 18 mmol/L [facility] AST [Catalytic activity/Vol] 12 U/L Low 13 - 35 U/L [facility] Bilirubin [Mass/Vol] 0.2 mg/dL 0.2 - 1 .3 mg/dL [facility] Calcium [Mass/Vol] 9.3 mg/dL 8.5 - 10. 2 mg/dL [facility] Chloride [Moles/Vol] 103 mmol/L 97 - 10 5 mmol/L [facility] CO2 [Moles/Vol] 28 mmol/L 22 - 30 mmol/L [facility] Creatinine [Mass/Vol] 0.69 mg/dL 0.58 - 0.96 mg/dL [facility] Estimated Glomerular Filtration Rate 112 mL/min/1.73m >=60 mL/min/1.73m [facility] Glucose [Mass/Vol] 100 mg/dL High 74 - 99 mg/dL [facility] Potassium [Moles/Vol] 3.9 mmol/L 3.7 - 5.1 mmol/L [facility] Protein [Mass/Vol] 7.0 g/dL 6.3 - 8.0 g/dL [facility] Sodium [Moles/Vol] 138 mmol/L 136 - 144 mmol/L [facility] Urea nitrogen [Mass/Vol] 12 mg/dL 7 - 21 mg/dL [facility] LD LACTATE DEHYDROon 022 LDH [Catalytic activity/Vol] 135 U/L 135 - 214 U/L [facility] PHOSPHORUS INORGANICon 03-04 Phosphate [Mass/Vol] 3.2 mg/dL 2.7 - 4 .8 mg/dL [facility] URIC ACID BLOODon 03-04-2022 Urate [Mass/Vol] 5.2 mg/dL 2.5 - 6.6 mg/dL [facility] IMMUNOGLOBULINS IGA/IGM/IGG/ IGE QUANTITAon 02-20-2022 Immunoglobulin A, Qn, Serum 189 mg/dL Normal 87-352 [facility] Comment on above: Result Comment: Perf ormed at: CB Performed By: #### S LUIGI MELO #### [facility] [address] [place] [address] Dr. Manda York Immunoglobulin E, Total 10 IU/mL Normal 6-495 [facility] Comment on above: Result Comment: Perf ormed at: BN Performed By: #### S LEANN MELOC #### [facility] [address] [place] [address] Dr. Manda York Immunoglobulin G, Qn, Serum 598 mg/dL Normal 586-1602 [facility] Comment on above: Result Comment: Perf ormed at: CB Performed By: #### S LEANN MELOC #### [facility] [address] [place] [address] Dr. Manda York Immunoglobulin M, Qn, Serum 493 mg/dL Critically high 26-217 [facility] Comment on above: Result Comment: Perf ormed at: CB Performed By: #### S LEANN MELOC #### [facility] [address] [place] [address] Dr. Manda York CHRISTIAN by IFAon 02-19-2022 Antinuclear Antibodies, IFA Negative Normal [facility] Comment on above: Result Comment: Nega tive <1:80 Borderline 1:80 Positive >1:80 ICAP nomenclature: [id number] For more information about Hep-2 cell patterns use ANApatterns.org, the official website for the International Consensus on Antinuclear Antibody (CHRISTIAN) Patterns (ICAP). Performed By: #### S LEANN MELOC #### [facility] [address] [place] [address] Dr. Manda York THYROID ANTIBODIESon 022 Thyroglobulin Antibody <1.0 Normal 0.0-0.9 [facility] Comment on above: Result Comment: Thyr oglobulin Antibody measured by Everette Dominique Methodology Performed By: #### F T4 #### [facility] [address] [place] [address] Dr. Manda York Thyroid Peroxidase (TPO) Ab <8 Normal 0-34 [facility] Comment on above: Performed By: #### F T4 #### [facility] [address] [place] [address] Dr. Manda York PROTEIN ELECTROPHERESISon Albumin [Mass/Vol] 3.2 g/dL Normal 2.9-4.4 [facility] Comment on above: Performed By: #### F T4 #### [facility] [address] [place] [address] Dr. Manda York Albumin/Globulin [Mass ratio] 1.0 {ratio} Normal 0.7-1.7 [facility] Comment on above: Performed By: #### F T4 #### [facility] [address] [place] [address] Dr. Manda York Yrxdt-6-Bqdvufom 0.2 g/dL Normal 0.0-0.4 [facility] Comment on above: Performed By: #### F T4 #### [facility] [address] [place] [address] Dr. Manda York Vdqfg-1-Mvnkdubm 0.9 g/dL Normal 0.4-1.0 [facility] Comment on above: Performed By: #### F T4 #### [facility] [address] [place] [address] Dr. Manda York Beta Globulin 1.2 g/dL Normal 0.7-1.3 [facility] Comment on above: Performed By: #### F T4 #### [facility] [address] [place] [address] Dr. Manda York Gamma Globulin 0.9 g/dL Normal 0.4-1.8 [facility] Comment on above: Performed By: #### F T4 #### [facility] [address] [place] [address] Dr. Manda York Globulin (S) [Mass/Vol] 3.2 g/dL Normal 2.2-3.9 [facility] Comment on above: Performed By: #### F T4 #### [facility] [address] [place] [address] Dr. Manda York M-Jose De Jesus Not Observed Normal Not Observed [facility] Comment on above: Performed By: #### F T4 #### [facility] [address] [place] [address] Dr. Manda York PDF . Normal [facility] Comment on above: Performed By: #### F T4 #### [facility] [address] [place] [address] Dr. Manda York Please note: Comment Normal [facility] Comment on above: Result Comment: Prot ein electrophoresis scan will follow via computer, mail, or defense analyst delivery. Performed By: #### F T4 #### [facility] [address] [place] [address] Dr. Manda York Protein [Mass/Vol] 6.4 g/dL Normal 6.0-8.5 [facility] Comment on above: Performed By: #### F T4 #### [facility] [address] [place] [address] Dr. Manda York SLE PROFILE Aon 02-16-2022 Anti-DNA (DS) Ab Qn 9 IU/mL Normal 0-9 [facility] Comment on above: Result Comment: Nega tive <5 Equivocal 5 - 9 Positive >9 Performed By: #### S LEANN MELOC #### [facility] [address] [place] [address] Dr. Manda York Antichromatin Antibodies <0.2 Normal 0.0-0.9 [facility] Comment on above: Performed By: #### LEANN APTRICKC #### [facility] [address] [place] [address] Dr. Manda York RA Latex Turbid. <10.0 Normal <14.0 [facility] Comment on above: Performed By: #### S LEANN MELOC #### [facility] [address] [place] [address] Dr. Manda York LANDCARE FACILITATOR Antibodies <0.2 Normal 0.0-0.9 [facility] Comment on above: Performed By: #### S LEANN MELOC #### [facility] [address] [place] [address] Dr. Manda York Sjogren's Anti-SS-A <0.2 Normal 0.0-0.9 [facility] Comment on above: Performed By: #### S LEANN MELOC #### [facility] [address] [address] [address] Manda York Sjogren's Anti-SS-B <0.2 Normal 0.0-0.9 [facility] Comment on above: Performed By: #### LUIGI PATRICK #### [facility] [address] [address] [address] Manda York Schneider Antibodies <0.2 Normal 0.0-0.9 [facility] Comment on above: Performed By: #### LUIGI PATRICK #### [facility] [address] [place] [address] Dr. Manda York ANTISTREPTOLYSIN O AB (ASO)o n 02-15-2022 Antistreptolysin O Ab 49.6 IU/mL Normal 0.0-200.0 [facility] Comment on above: Performed By: #### A SOAB #### [facility] [address] [place] [address] Dr. Manda York MICROALBUMIN URINEon 022 Albumin, Urine <3.0 Normal Not Estab. [facility] Comment on above: Result Comment: Ve rified by repeat analysis Performed By: #### C BC #### [facility] [address] [place] [address] Dr. Manda York T4, T3U, FTI LABCORPon 02-15 Free Thyroxine Index 2.6 Normal 1.2-4.9 [facility] Comment on above: Performed By: #### LUIGI PATRICK #### [facility] [address] [place] [address] Dr. Manda York T3 Uptake 26 % Normal 24-39 [facility] Comment on above: Performed By: #### LUIGI PATRICK #### [facility] [address] [address] [address] Manda York T4 [Mass/Vol] 9.9 ug/dL Normal 4.5-12.0 [facility] Comment on above: Performed By: #### LUIGI PATRICK #### [facility] [address] [address] [address] Manda York CBC AUTO DIFFon 02-14-2022 BASO # 0.1 103/ul Normal 0.0-0.1 [facility] Comment on above: Performed By: #### U AMIC #### [facility] [address] [address] [address] Manda York Basophils/100 WBC (Bld) 0.6 % Normal 0.2-2.0 [facility] Comment on above: Performed By: #### U AMIC #### [facility] [address] [place] [address] Dr. Manda York EO # 0.3 103/ul Normal 0.0-0.7 [facility] Comment on above: Performed By: #### U AMIC #### [facility] [address] [place] [address] Dr. Manda York Eosinophils/100 WBC (Bld) 3.4 % Normal 0.9-7.0 [facility] Comment on above: Performed By: #### U AMIC #### [facility] [address] [place] [address] Dr. Manda York Erythrocyte distribution width (RBC) [Ratio] 14.6 % Normal 11.0-15.0 [facility] Comment on above: Performed By: #### U AMIC #### [facility] [address] [place] [address] Dr. Manda York Hematocrit (Bld) [Volume fraction] 39.1 % Normal 36.0-48.0 [facility] Comment on above: Performed By: #### U AMIC #### [facility] [address] [place] [address] Dr. Manda York Hemoglobin (Bld) [Mass/Vol] 12.4 g/dL Normal 12.0-16.0 [facility] Comment on above: Performed By: #### U AMIC #### [facility] [address] [place] [address] Dr. Manda York IG # 0.03 10e3/ul Normal 0.00-0.03 [facility] Comment on above: Performed By: #### U AMIC #### [facility] [address] [address] [address] Manda York IG % 0.3 % Normal 0.0-0.5 [facility] Comment on above: Performed By: #### U AMIC #### [facility] [address] [address] [address] Manda York LYMPH # 3.6 103/ul Normal 1.2-3.8 [facility] Comment on above: Performed By: #### U AMIC #### [facility] [address] [address] [address] Manda York Lymphocytes/100 WBC (Bld) 39.9 % Normal 20.5-60.0 [facility] Comment on above: Performed By: #### U AMIC #### [facility] [address] [place] [address] Dr. Manda York MANUAL DIFF REQ NO Normal [facility] Comment on above: Performed By: #### U AMIC #### [facility] [address] [place] [address] Dr. Manda York MCH (RBC) [Entitic mass] 28.4 pg Normal 26.7-34.0 [facility] Comment on above: Performed By: #### U AMIC #### [facility] [address] [place] [address] Dr. Manda York MCHC (RBC) [Mass/Vol] 31.7 g/dL Normal 29.9-35.2 [facility] Comment on above: Performed By: #### U AMIC #### [facility] [address] [place] [address] Dr. Manda York MCV (RBC) [Entitic vol] 89.7 fL Normal 81.0-99.0 [facility] Comment on above: Performed By: #### U AMIC #### [facility] [address] [address] [address] Manda York MONO # 0.7 103/ul Normal 0.3-0.8 [facility] Comment on above: Performed By: #### U AMIC #### [facility] [address] [address] [address] Manda York Monocytes/100 WBC (Bld) 7.3 % Normal 1.7-12.0 [facility] Comment on above: Performed By: #### U AMIC #### [facility] [address] [address] [address] Manda York NEUT # 4.4 103/ul Normal 1.4-6.5 [facility] Comment on above: Performed By: #### U AMIC #### [facility] [address] [address] [address] Manda York Neutrophils/100 WBC (Bld) 48.5 % Normal 43.0-75.0 [facility] Comment on above: Performed By: #### U AMIC #### [facility] [address] [address] [address] Manda York Platelet mean volume (Bld) [Entitic vol] 10.1 fL Normal 9.5-13.5 [facility] Comment on above: Performed By: #### U AMIC #### [facility] [address] [address] [address] Manda York PLT 310 103/ul Normal 150-450 [facility] Comment on above: Performed By: #### U AMIC #### [facility] [address] [address] [address] Manda York RBC 4.36 106/ul Normal 4.20-5.40 [facility] Comment on above: Performed By: #### U AMIC #### [facility] [address] [address] [address] Manda York WBC 9.0 103/ul Normal 4.0-11.0 [facility] Comment on above: Performed By: #### U AMIC #### [facility] [address] [address] [address] Manda York CRPon 02-14-2022 CRP [Mass/Vol] mg/L Normal <=1.0 [facility] Comment on above: Performed By: #### U AMIC #### [facility] [address] [address] [address] Manda York CULTURE URINEon 02-14-2022 CULTURE URINE Culture Observations : LIGHT GROWTH OF MIXED GENITAL AMBER. NO POTENTIAL PATHOGENS SEEN. Normal [facility] Comment on above: Performed By: #### C BC #### [facility] [address] [place] [address] Dr. Manda York PROF 14(COMP METB)on 022 Albumin [Mass/Vol] 3.5 g/dL Normal 3.4-5.0 [facility] Comment on above: Performed By: #### U AMIC #### [facility] [address] [place] [address] Dr. Manda York Albumin/Globulin [Mass ratio] 1.0 {ratio} Normal [facility] Comment on above: Performed By: #### U AMIC #### [facility] [address] [place] [address] Dr. Mnada York ALP [Catalytic activity/Vol] 71 U/L Normal 46-116 [facility] Comment on above: Performed By: #### U AMIC #### [facility] [address] [address] [address] Manda York ALT [Catalytic activity/Vol] 46 U/L Normal 14-59 [facility] Comment on above: Performed By: #### U AMIC #### [facility] [address] [place] [address] Dr. Manda York Anion gap [Moles/Vol] 11.6 mmol/L Normal [facility] Comment on above: Performed By: #### U AMIC #### [facility] [address] [place] [address] Dr. Manda York AST [Catalytic activity/Vol] 15 U/L Normal 15-37 [facility] Comment on above: Performed By: #### U AMIC #### [facility] [address] [address] [address] Manda York Bilirubin [Mass/Vol] 0.2 mg/dL Normal 0.2-1.0 [facility] Comment on above: Performed By: #### U AMIC #### [facility] [address] [address] [address] Manda York Calcium [Mass/Vol] 8.7 mg/dL Normal 8.5-10.1 [facility] Comment on above: Performed By: #### U AMIC #### [facility] [address] [address] [address] Manda York Chloride [Moles/Vol] 104 mmol/L Normal 98-107 [facility] Comment on above: Performed By: #### U AMIC #### [facility] [address] [address] [address] Manda York CO2 [Moles/Vol] 25.1 mmol/L Normal 21.0-32.0 [facility] Comment on above: Performed By: #### U AMIC #### [facility] [address] [place] [address] Dr. Manda York Creatinine [Mass/Vol] 0.80 mg/dL Normal 0.55-1.02 [facility] Comment on above: Performed By: #### U AMIC #### [facility] [address] [address] [address] Manda York EGFR-AF MALAYSIAN >60 Normal >=60 [facility] Comment on above: Performed By: #### U AMIC #### [facility] [address] [place] [address] Dr. Manda York EGFR-NON AF MALAYSIAN >60 Normal >=60 [facility] Comment on above: Performed By: #### U AMIC #### [facility] [address] [place] [address] Dr. Manda York Globulin (S) [Mass/Vol] 3.6 g/dL Normal [facility] Comment on above: Performed By: #### U AMIC #### [facility] [address] [address] [address] Manda York Glucose [Mass/Vol] 92 mg/dL Normal 74-106 [facility] Comment on above: Performed By: #### U AMIC #### [facility] [address] [address] [address] Manda York Potassium [Moles/Vol] 3.7 mmol/L Normal 3.5-5.1 [facility] Comment on above: Performed By: #### U AMIC #### [facility] [address] [address] [address] Manda York Protein [Mass/Vol] 7.1 g/dL Normal 6.4-8.2 [facility] Comment on above: Performed By: #### U AMIC #### [facility] [address] [address] [address] Manda York Sodium [Moles/Vol] 137 mmol/L Normal 136-145 [facility] Comment on above: Performed By: #### U AMIC #### [facility] [address] [address] [address] Manda York Urea nitrogen [Mass/Vol] 17.0 mg/dL Normal 7.0-18.0 [facility] Comment on above: Performed By: #### U AMIC #### [facility] [address] [address] [address] Manda York Urea nitrogen/Creatinine [Mass ratio] 21.2 mg/mg Normal [facility] Comment on above: Performed By: #### U AMIC #### [facility] [address] [address] [address] Manda York SED RATE [facility] 2021 SED RATE 40 mm/hr Critically high <=20 [facility] Comment on above: Performed By: #### S EDR #### [facility] [address] [address] [address] Manda York TSHon 02-14-2022 TSH 1.155 uIU/mL Normal 0.358-3.740 [facility] Comment on above: Performed By: #### U AMIC #### [facility] [address] [address] [address] Manda York UA RANDOM W/MICROSCOPICon BACTERIA NONE SEEN Normal NONE SEEN [facility] Comment on above: Performed By: #### U AMIC #### [facility] [address] [address] [address] Manda York Bilirubin Ql (U) Negative Normal NEGATIVE [facility] Comment on above: Performed By: #### U AMIC #### [facility] [address] [address] [address] Manda York CAST NONE SEEN Normal NONE SEEN [facility] Comment on above: Performed By: #### U AMIC #### [facility] [address] [address] [address] Manda York Clarity (U) CLEAR Normal CLEAR [facility] Comment on above: Performed By: #### U AMIC #### [facility] [address] [address] [address] Manda York Color (U) LT. YELLOW Normal YELLOW [facility] Comment on above: Performed By: #### U AMIC #### [facility] [address] [address] [address] Manda York Crystals LM Nom (Urine sed) NONE SEEN Normal NONE SEEN [facility] Comment on above: Performed By: #### U AMIC #### [facility] [address] [address] [address] Manda York Epithelial cells LM Ql (Urine sed) RARE Normal NONE SEEN /RARE [facility] Comment on above: Performed By: #### U AMIC #### [facility] [address] [address] [address] Manda York Glucose Ql (U) Negative Normal NEGATIVE [facility] Comment on above: Performed By: #### U AMIC #### [facility] [address] [address] [address] Manda York Hemoglobin Ql (U) Negative Normal NEGATIVE [facility] Comment on above: Performed By: #### U AMIC #### [facility] Laboratory [address] [address] [address] Manda York Ketones Ql (U) Negative Normal NEGATIVE [facility] [place] Comment on above: Performed By: #### U AMIC #### [facility] [address] [address] [address] Manda York LEUKOCYTES Negative Normal NEGATIVE [facility] Comment on above: Performed By: #### U AMIC #### [facility] [address] [place] [address] Dr. Manda York MUCOUS NONE SEEN Normal NONE SEEN [facility] Comment on above: Performed By: #### U AMIC #### [facility] [address] [place] [address] Dr. Manda York Nitrite Ql (U) Negative Normal NEGATIVE [facility] [place] Comment on above: Performed By: #### U AMIC #### [facility] [address] [place] [address] Dr. Manda York pH (U) 6.0 [pH] Normal 5-9 [facility] Comment on above: Performed By: #### U AMIC #### [facility] [address] [place] [address] Dr. Manda York RBC NONE SEEN Abnormal 0-2 [facility] Comment on above: Performed By: #### U AMIC #### [facility] [address] [place] [address] Dr. Manda York SPEC GRAVITY 1.005 Normal 1.005-<=1.025 [facility] Comment on above: Performed By: #### U AMIC #### [facility] [address] [place] [address] Dr. Manda York UA PROTEIN Negative Normal NEGATIVE/ TRACE [facility] Comment on above: Performed By: #### U AMIC #### [facility] [address] [place] [address] Dr. Manda York Urobilinogen Qn (U) 0.2 {Carmella'U}/dL Normal 0.2 - 1. 0 [facility] Comment on above: Performed By: #### U AMIC #### [facility] [address] [place] [address] Dr. Manda York WBC NONE SEEN Normal NONE SEEN [facility] Comment on above: Performed By: #### U AMIC #### [facility] [address] [place] [address] Dr. Manda York URIC ACID SERUMon 02-14-2022 Urate [Mass/Vol] 4.2 mg/dL Normal 2.6-6.0 [facility] Comment on above: Performed By: #### U AMIC #### [facility] [address] [place] [address] Dr. Manda York VITAMIN D 25 OHon 02-14-2022 VIT D 25-OH 22.4 ng/mL Normal [facility] Comment on above: Performed By: #### F T4 #### [facility] [address] [place] [address] Dr. Manda York VIT D RANGES SEE BELOW Normal [facility] Comment on above: Result Comment: <20 ng/mL Vit D deficient 20 - <30 ng/mL Vit D insufficient 30 - 100 ng/mL Vit D sufficient >100 ng/mL Potential Toxicity Performed By: #### F T4 #### [facility] [address] [place] [address] Dr. Manda York METANEPHRINES FRAC. QNT 24 H R URINEon 11-28-2021 Metanephrine, U,24hr Comment Normal 36-209 [facility] Comment on above: Result Comment: No t otal volume submitted. Unable to calculate 24 hour result. Performed By: #### LUIGI PATRICK #### [facility] [address] [place] [address] Dr. Manda York Metanephrine, Ur 57 ug/L Normal Undefined [facility] Comment on above: Performed By: #### LUIGI PATRICK #### [facility] [address] [address] [address] Manda York Normetanephr.,U,24h Comment Normal 131-612 [facility] Comment on above: Result Comment: No t otal volume submitted. Unable to calculate 24 hour result. Performed By: #### LUIGI PATRICK #### [facility] [address] [place] [address] Dr. Manda York Normetanephrine, Ur 116 ug/L Normal Undefined [facility] Comment on above: Performed By: #### S LUIGI MELO #### [facility] [address] [place] [address] Dr. Manda York METANEPHRINES PLASMA FREEon 11-27-2021 Metanephrine, Pl 22.1 pg/mL Normal 0.0-88.0 [facility] Comment on above: Performed By: #### LEANN PATRICK #### [facility] [address] [place] [address] Dr. Manda York Normetanephrine, Pl 50.7 pg/mL Normal 0.0-218.9 [facility] Comment on above: Performed By: #### S LORIE [facility] #### [facility] [address] [place] [address] Dr. Manda York CMV PLASMA PCRon 11-19-2021 CMV Quant DNA PCR (Plasma) Negative Normal Negative [facility] Comment on above: Result Comment: No C MV DNA detected. The quantitative range of this assay is 200 to 1 million IU/mL. Performed By: #### LEANN PATRICK #### [facility] [address] [place] [address] Dr. Manda York log10 CMV Qn DNA Pl UPTCAL Normal [facility] Comment on above: Result Comment: Unab le to calculate result since non-numeric result obtained for component test. Performed By: #### LEANN PATRICK #### [facility] [address] [place] [address] Dr. Manda York CMV AB IGMon 11-18-2021 Cytomegalovirus (CMV) Ab, IgM 43.2 AU/mL Critically high 0.0-29.9 [facility] Comment on above: Result Comment: Nega tive <30.0 Equivocal 30.0 - 34.9 Positive >34.9 A positive result is generally indicative of acute infection, reactivation or persistent IgM production. Performed By: #### LEANN PATRICK #### [facility] [address] [place] [address] Dr. Manda York CMV AB, IGGon 11-18-2021 Cytomegalovirus (CMV) Ab, IgG >10.00 Critically high 0.00-0.59 [facility] Comment on above: Result Comment: Nega tive <0.60 Equivocal 0.60 - 0.69 Positive >0.69 Performed By: #### C MVIGG #### [facility] [address] [place] [address] Dr. Manda York CBC AUTO DIFFon 11-17-2021 BASO # 0.1 103/ul Normal 0.0-0.1 [facility] Comment on above: Performed By: #### C BC #### [facility] [address] [place] [address] Dr. Manda York Basophils/100 WBC (Bld) 0.6 % Normal 0.2-2.0 [facility] Comment on above: Performed By: #### C BC #### [facility] [address] [place] [address] Dr. Manda York EO # 0.2 103/ul Normal 0.0-0.7 [facility] Comment on above: Performed By: #### C BC #### [facility] [address] [place] [address] Dr. Manda York Eosinophils/100 WBC (Bld) 2.3 % Normal 0.9-7.0 [facility] Comment on above: Performed By: #### C BC #### [facility] [address] [place] [address] Dr. Manda York Erythrocyte distribution width (RBC) [Ratio] 14.2 % Normal 11.0-15.0 [facility] Comment on above: Performed By: #### C BC #### [facility] [address] [place] [address] Dr. Manda York Hematocrit (Bld) [Volume fraction] 40.2 % Normal 36.0-48.0 [facility] Comment on above: Performed By: #### C BC #### [facility] [address] [place] [address] Dr. Manda York Hemoglobin (Bld) [Mass/Vol] 12.8 g/dL Normal 12.0-16.0 [facility] Comment on above: Performed By: #### C BC #### [facility] [address] [place] [address] Dr. Manda York IG # 0.02 10e3/ul Normal 0.00-0.03 [facility] Comment on above: Performed By: #### C BC #### [facility] [address] [place] [address] Dr. Manda York IG % 0.2 % Normal 0.0-0.5 [facility] Comment on above: Performed By: #### C BC #### [facility] [address] [place] [address] Dr. Manda York LYMPH # 2.5 103/ul Normal 1.2-3.8 [facility] Comment on above: Performed By: #### C BC #### [facility] [address] [place] [address] Dr. Manda York Lymphocytes/100 WBC (Bld) 24.9 % Normal 20.5-60.0 [facility] Comment on above: Performed By: #### C BC #### [facility] [address] [place] [address] Dr. Manda York MANUAL DIFF REQ NO Normal [facility] Comment on above: Performed By: #### C BC #### [facility] [address] [place] [address] Dr. Manda York MCH (RBC) [Entitic mass] 27.9 pg Normal 26.7-34.0 [facility] Comment on above: Performed By: #### C BC #### [facility] [address] [place] [address] Dr. Manda York MCHC (RBC) [Mass/Vol] 31.8 g/dL Normal 29.9-35.2 [facility] Comment on above: Performed By: #### C BC #### [facility] [address] [place] [address] Dr. Manda York MCV (RBC) [Entitic vol] 87.6 fL Normal 81.0-99.0 [facility] Comment on above: Performed By: #### C BC #### [facility] [address] [place] [address] Dr. Manda York MONO # 0.6 103/ul Normal 0.3-0.8 [facility] Comment on above: Performed By: #### C BC #### [facility] [address] [place] [address] Dr. Manda York Monocytes/100 WBC (Bld) 6.3 % Normal 1.7-12.0 [facility] Comment on above: Performed By: #### C BC #### [facility] [address] [place] [address] Dr. Manda York NEUT # 6.5 103/ul Normal 1.4-6.5 [facility] Comment on above: Performed By: #### C BC #### [facility] [address] [place] [address] Dr. Manda York Neutrophils/100 WBC (Bld) 65.7 % Normal 43.0-75.0 [facility] Comment on above: Performed By: #### C BC #### [facility] [address] [place] [address] Dr. Manda York Platelet mean volume (Bld) [Entitic vol] 10.1 fL Normal 9.5-13.5 [facility] Comment on above: Performed By: #### C BC #### [facility] [address] [place] [address] Dr. Manda York PLT 304 103/ul Normal 150-450 [facility] Comment on above: Performed By: #### C BC #### [facility] [address] [place] [address] Dr. Manda York RBC 4.59 106/ul Normal 4.20-5.40 [facility] Comment on above: Performed By: #### C BC #### [facility] [address] [place] [address] Dr. Manda York WBC 9.9 103/ul Normal 4.0-11.0 [facility] Comment on above: Performed By: #### C BC #### [facility] [address] [place] [address] Dr. Manda York PROF 14(COMP METB)on 022 Albumin [Mass/Vol] 3.7 g/dL Normal 3.4-5.0 [facility] Comment on above: Performed By: #### C BC #### [facility] [address] [address] [address] Manda York Albumin/Globulin [Mass ratio] 1.0 {ratio} Normal [facility] Comment on above: Performed By: #### C BC #### [facility] [address] [place] [address] Dr. Manda York ALP [Catalytic activity/Vol] 65 U/L Normal 46-116 [facility] Comment on above: Performed By: #### C BC #### [facility] [address] [address] [address] Manda York ALT [Catalytic activity/Vol] 35 U/L Normal 14-59 [facility] Comment on above: Performed By: #### C BC #### [facility] [address] [place] [address] Dr. Manda York Anion gap [Moles/Vol] 13.0 mmol/L Normal [facility] Comment on above: Performed By: #### C BC #### [facility] [address] [place] [address] Dr. Manda York AST [Catalytic activity/Vol] 12 U/L Critically low 15-37 [facility] Comment on above: Performed By: #### C BC #### [facility] [address] [place] [address] Dr. Manda York Bilirubin [Mass/Vol] 0.2 mg/dL Normal 0.2-1.0 [facility] Comment on above: Performed By: #### C BC #### [facility] [address] [place] [address] Dr. Manda York Calcium [Mass/Vol] 8.7 mg/dL Normal 8.5-10.1 [facility] Comment on above: Performed By: #### C BC #### [facility] [address] [place] [address] Dr. Manda York Chloride [Moles/Vol] 104 mmol/L Normal 98-107 [facility] Comment on above: Performed By: #### C BC #### [facility] [address] [address] [address] Manda York CO2 [Moles/Vol] 24.9 mmol/L Normal 21.0-32.0 [facility] Comment on above: Performed By: #### C BC #### [facility] [address] [place] [address] Dr. Manda York Creatinine [Mass/Vol] 0.77 mg/dL Normal 0.55-1.02 [facility] Comment on above: Performed By: #### C BC #### [facility] [address] [place] [address] Dr. Manda York EGFR-AF MALAYSIAN >=60 Normal >=60 [facility] Comment on above: Performed By: #### C BC #### [facility] [address] [place] [address] Dr. Manda York EGFR-NON AF MALAYSIAN >=60 Normal >=60 [facility] Comment on above: Performed By: #### C BC #### [facility] [address] [place] [address] Dr. Manda York Globulin (S) [Mass/Vol] 3.8 g/dL Normal [facility] Comment on above: Performed By: #### C BC #### [facility] [address] [place] [address] Dr. Manda York Glucose [Mass/Vol] 110 mg/dL Critically high 74-106 [facility] Comment on above: Performed By: #### C BC #### [facility] [address] [place] [address] Dr. Manda York Potassium [Moles/Vol] 3.9 mmol/L Normal 3.5-5.1 [facility] Comment on above: Performed By: #### C BC #### [facility] [address] [place] [address] Dr. Manda York Protein [Mass/Vol] 7.5 g/dL Normal 6.4-8.2 [facility] Comment on above: Performed By: #### C BC #### [facility] [address] [place] [address] Dr. Manda York Sodium [Moles/Vol] 138 mmol/L Normal 136-145 [facility] Comment on above: Performed By: #### C BC #### [facility] [address] [place] [address] Dr. Manda York Urea nitrogen [Mass/Vol] 17.0 mg/dL Normal 7.0-18.0 [facility] Comment on above: Performed By: #### C BC #### [facility] [address] [place] [address] Dr. Manda York Urea nitrogen/Creatinine [Mass ratio] 22.1 mg/mg Normal [facility] Comment on above: Performed By: #### C BC #### [facility] [address] [place] [address] Dr. Manda York SED RATE [facility] 2021 SED RATE 45 mm/hr Critically high <=20 [facility] Comment on above: Performed By: #### F T4 #### [facility] [address] [place] [address] Dr. Manda York CHRISTIAN EIA W/REFLEX 5 BIOMARKER Son 10-06-2021 CHRISTIAN Direct Positive Abnormal Negative [facility] Comment on above: Performed By: #### C BC #### [facility] [address] [place] [address] Dr. Manda York Anti-DNA (DS) Ab Qn 10 IU/mL Critically high 0-9 [facility] Comment on above: Result Comment: Nega tive <5 Equivocal 5 - 9 Positive >9 Performed By: #### C BC #### [facility] [address] [place] [address] Dr. Manda York LAND[employer] FACILITATOR Antibodies <0.2 Normal 0.0-0.9 [facility] Comment on above: Performed By: #### C BC #### [facility] [address] [place] [address] Dr. Manda York SEE BELOW: Comment Normal [facility] Comment on above: Result Comment: Auto [...] Sm (anti-Schneider) SLE 15 - 30% --------- LANDC[employer] FACILITATOR Mixed Connective Tissue Disease 95% (U1 nRNP, SLE 30 - 50% anti-ribonucleoprotein) Polymyositis and/or Dermatomyositis 20% --------- Scl-70 (antiDNA Scleroderma (diffuse) 20 - 35% topoisomerase) Crest 13% --------- Felicita-1 Polymyositis and/or Dermatomyositis 20 - 40% --------- Centromere B Scleroderma - Crest variant 80% Performed By: #### C BC #### [facility] [address] [place] [address] Dr. Manda York Sjogryaniv's Anti-SS-A <0.2 Normal 0.0-0.9 [facility] Comment on above: Performed By: #### C BC #### [facility] [address] [place] [address] Dr. Manda York Sjogren's Anti-SS-B <0.2 Normal 0.0-0.9 [facility] Comment on above: Performed By: #### C BC #### [facility] [address] [place] [address] Dr. Manda York Schneider Antibodies <0.2 Normal 0.0-0.9 [facility] Comment on above: Performed By: #### C BC #### [facility] [address] [place] [address] Dr. Manda York CMV PLASMA PCRon 10-06-2021 CMV Quant DNA PCR (Plasma) Negative Normal Negative [facility] Comment on above: Result Comment: No C MV DNA detected. The quantitative range of this assay is 200 to 1 million IU/mL. Performed By: #### C MVPL #### [facility] [address] [place] [address] Dr. Manda York log10 CMV Qn DNA Pl UPTCAL Normal [facility] Comment on above: Result Comment: Unab le to calculate result since non-numeric result obtained for component test. Performed By: #### C MVPL #### [facility] [address] [place] [address] Dr. Manda York CMV AB IGMon 2021 Cytomegalovirus (CMV) Ab, IgM 35.5 AU/mL Critically high 0.0-29.9 [facility] Comment on above: Result Comment: Nega tive <30.0 Equivocal 30.0 - 34.9 Positive >34.9 A positive result is generally indicative of acute infection, reactivation or persistent IgM production. Performed By: #### S LEANN MELOC #### [facility] [address] [place] [address] Dr. Manda York CMV AB, IGGon 2021 Cytomegalovirus (CMV) Ab, IgG 6.30 U/mL Critically high 0.00-0.59 [facility] Comment on above: Result Comment: Nega tive <0.60 Equivocal 0.60 - 0.69 Positive >0.69 Performed By: #### S LORIE THYLC #### [facility] [address] [place] [address] Dr. Manda York CBC AUTO DIFFon 10-03-2021 BASO # 0.1 103/ul Normal 0.0-0.1 [facility] Comment on above: Performed By: #### C BC #### [facility] [address] [place] [address] Dr. Manda Yrok Basophils/100 WBC (Bld) 0.7 % Normal 0.2-2.0 [facility] Comment on above: Performed By: #### C BC #### [facility] [address] [place] [address] Dr. Manda York EO # 0.2 103/ul Normal 0.0-0.7 [facility] Comment on above: Performed By: #### C BC #### [facility] [address] [place] [address] Dr. Manda York Eosinophils/100 WBC (Bld) 2.0 % Normal 0.9-7.0 [facility] Comment on above: Performed By: #### C BC #### [facility] [address] [place] [address] Dr. Manda York Erythrocyte distribution width (RBC) [Ratio] 14.4 % Normal 11.0-15.0 [facility] Comment on above: Performed By: #### C BC #### [facility] [address] [place] [address] Dr. Manda York Hematocrit (Bld) [Volume fraction] 37.2 % Normal 36.0-48.0 [facility] Comment on above: Performed By: #### C BC #### [facility] [address] [place] [address] Dr. Manda York Hemoglobin (Bld) [Mass/Vol] 12.3 g/dL Normal 12.0-16.0 [facility] Comment on above: Performed By: #### C BC #### [facility] [address] [place] [address] Dr. Manda York IG # 0.02 10e3/ul Normal 0.00-0.03 [facility] Comment on above: Performed By: #### C BC #### [facility] [address] [place] [address] Dr. Manda York IG % 0.2 % Normal 0.0-0.5 [facility] Comment on above: Performed By: #### C BC #### [facility] [address] [place] [address] Dr. Manda York LYMPH # 2.1 103/ul Normal 1.2-3.8 [facility] Comment on above: Performed By: #### C BC #### [facility] [address] [place] [address] Dr. Manda York Lymphocytes/100 WBC (Bld) 26.4 % Normal 20.5-60.0 [facility] Comment on above: Performed By: #### C BC #### [facility] [address] [place] [address] Dr. Manda York MANUAL DIFF REQ NO Normal [facility] Comment on above: Performed By: #### C BC #### [facility] [address] [place] [address] Dr. Manda York MCH (RBC) [Entitic mass] 29.2 pg Normal 26.7-34.0 [facility] Comment on above: Performed By: #### C BC #### [facility] [address] [place] [address] Dr. Manda York MCHC (RBC) [Mass/Vol] 33.1 g/dL Normal 29.9-35.2 [facility] Comment on above: Performed By: #### C BC #### [facility] [address] [place] [address] Dr. Manda York MCV (RBC) [Entitic vol] 88.4 fL Normal 81.0-99.0 [facility] Comment on above: Performed By: #### C BC #### [facility] [address] [place] [address] Dr. Manda York MONO # 0.5 103/ul Normal 0.3-0.8 [facility] Comment on above: Performed By: #### C BC #### [facility] [address] [place] [address] Dr. Manda York Monocytes/100 WBC (Bld) 6.7 % Normal 1.7-12.0 [facility] Comment on above: Performed By: #### C BC #### [facility] [address] [place] [address] Dr. Manda York NEUT # 5.2 103/ul Normal 1.4-6.5 [facility] Comment on above: Performed By: #### C BC #### [facility] [address] [place] [address] Dr. Manda York Neutrophils/100 WBC (Bld) 64.0 % Normal 43.0-75.0 [facility] Comment on above: Performed By: #### C BC #### [facility] [address] [address] [address] Manda York Platelet mean volume (Bld) [Entitic vol] 10.5 fL Normal 9.5-13.5 [facility] Comment on above: Performed By: #### C BC #### [facility] [address] [address] [address] Manda York PLT 265 103/ul Normal 150-450 [facility] Comment on above: Performed By: #### C BC #### [facility] [address] [address] [address] Manda York RBC 4.21 106/ul Normal 4.20-5.40 [facility] Comment on above: Performed By: #### C BC #### [facility] [address] [address] [address] Manda York WBC 8.1 103/ul Normal 4.0-11.0 [facility] Comment on above: Performed By: #### C BC #### [facility] [address] [address] [address] Manda York CRPon 10-03-2021 CRP [Mass/Vol] mg/L Normal <=1.0 [facility] Comment on above: Performed By: #### F T4 #### [facility] [address] [place] [address] Dr. Manda York [facility] SED RATE 34 mm/hr Critically high <=20 [facility] Comment on above: Performed By: #### C BC #### [facility] [address] [place] [address] Dr. Manda York CHLORIDE (POC)Ordered By: Jae Black on 10-07-2020 Chloride [Moles/Vol] 106 mmol/L 98 - 10 7 mmol/L [employer] Work Phone: Catheterization and angiogra phy procedure details panelOrdered By: Jonas Black on 10-07-2020 Cardiac Diagnostic Report Demographics Patient TERA Torres Date of Study 10/07/2020 Name Date of 1980 Gender Female Age 40 year(s) Race Room [id number]^LEYDI^JONAS Height: 67 inch, 170.18 cm Number Corporate [id number] Weight: 234 pounds, 106.1 kg ID # Patient [id number] BSA: 2.16 m^2 BMI: 36.65 kg/m^2 Acct # MR # [id number] Performing Jonas Black Physician Referring # Physician Assisting Physician [...] Right coronary angiography. Contrast Material: - Isovue 02607 ml Fluoroscopy Time: Diagnostic: 2:12 minutes. Total: [...] assessed as CCS II according to the [place] clinical classification. Hemodynamics Condition: Baseline Room Air Estimated: 246.52Heart Rate: 103 bpm Pressure +-----+ + !Site !Pressure ! +-----+ + !AO !106/ (86) ! +-----+ + !AO !/71 (87) ! +-----+ + !AO !112/ (86) ! +-----+ + !LV !126/0 ,1 ! +-----+ + !LV !126/0 ,5 ! +-----+ + Valve Gradients and Areas + +-------- -+---------+--------- + +--------- + + !Valve !Peak !Mean !Area !Index !Flow !Source ! + +-------- -+---------+--------- + +--------- + + !Aortic (more content not included)... [employer] Work Phone: Jr, pn Incoming Cardio Results From [facility]/ - 10/07/2020 10:37 AM EDT Cardiac Diagnostic Report Demographics Patient TERA Torres Date of Study 10/07/2020 Name Date of 1980 Gender Female Age 40 year(s) Race Room 6510702^LEYDI^JONAS Height: 67 inch, 170.18 cm Number Corporate [id number] Weight: 234 pounds, 106.1 kg ID # Patient [id number] BSA: 2.16 m^2 BMI: 36.65 kg/m^2 Acct # MR # [id number] Performing Jonas Black Physician Referring # Physician Assisting Physician [...] Right coronary angiography. Contrast Material: - Isovue 90023 ml Fluoroscopy Time: Diagnostic: 2:12 minutes. Total: [...] assessed as CCS II according to the [place] clinical classification. Hemodynamics Condition: Baseline Room Air [...] +--------- + + Shunts Oxygen Values O2 Bqaduhdt737.4O2 Ycsblbhsqfg818.52 [employer] Phone: [employer] Phone: [employer] Phone: Creatinine W/GFR Point of Ca reOrdered By: Jonas Black on 10-07-2020 Creatinine [Mass/Vol] 0.64 mg/dL 0.51 - 1.19 mg/dL [employer] Phone: GFR Non- >60 >60 mL/min [employer] Phone: GFR/1.73 sq M.predicted MDRD (S/P/Bld) [Vol rate/Area] mL/min/{1.73_m2} >60 mL/min [employer] Phone: GFR/1.73 sq M.predicted MDRD (S/P/Bld) [Vol rate/Area] [employer] Phone: Comment on above: Average GFR for 40-4 9 years old: 99 mL/min/1.73sq m Chronic Kidney Disease: <60 mL/min/1.73sq m Kidney failure: <15 mL/min/1.73sq m eGFR calculated using average adult body mass. Additional eGFR calculator available at: http://www.Ztail/multiple_crcl_2012.htm Hemoglobin and hematocrit, b loodOrdered By: Jonas Black on 10-07-2020 Hematocrit (Bld) [Volume fraction] 41 % 36 - 46 % [employer] Phone: Hemoglobin (Bld) [Mass/Vol] 14.0 g/dL 12.0 - 16.0 g/dL [employer] Phone: No Panel InformationOrdered By: Jonas Black on 10-07-2020 [employer] Phone: POCT GlucoseOrdered By: Anu Black on 10-07-2020 Glucose [Mass/Vol] 98 mg/dL 74 - 100 mg/dL [employer] Phone: POCT urine pregnancyOrdered By: Jonas Black on 10-07-2020 Beta HCG ( test) Ql (U) Negative NEGATIVE [employer] Phone: Comment on above: Specimens with hCG l evels near the threshold of the test (25 mIU/mL) may give a negative or indeterminate result. In such cases, another test should be performed with a new specimen in 48-72 hours. If early is suspected clinically in this setting, correlation with quantitative serum b-hCG level is suggested. [employer] Phone: POTASSIUM (POC)Ordered By: Al Black on 10-07-2020 Potassium [Moles/Vol] 3.8 mmol/L 3.5 - 4.5 mmol/L [employer] Phone: Platelet Counton 10-07-2020 Platelets (Bld) [#/Vol] 299 10*3/uL Normal 138-453 [facility] Comment on above: Performed By: #### P LT #### [facility] [address] [place] [address] Pediatrician Active Practice: Rick Serrano MD Platelet countOrdered By: Jae Black on 10-07-2020 Platelets (Bld) [#/Vol] 299 10*3/uL [employer] Phone: [employer] Phone: SODIUM (POC)Ordered By: Anu Black on 10-07-2020 Sodium [Moles/Vol] 141 mmol/L 138 - 146 mmol/L [employer] Phone: Coding Summary.on 01-12-2019 Coding Summary. CODING DATE: 01/12/2019 FINAL [facility] STATUS: Home (Routine DC) PAYOR: [...] Judd Date Saved: 01/12/2019 10:25 am Normal [facility] Coding Summary. CODING DATE: 01/12/2019 FINAL [facility]SC STATUS: Home (Routine DC) PAYOR: [...] Revised Date Saved: 01/12/2019 10:25 am Normal [facility] XR Chest 2 Viewson 9 [...] M.D. Transcribed by: BILL Technologist: ZOILA Normal [facility] Auto Diffon 01-11-2019 Basophils/100 WBC (Bld) 0.8 % Normal 0.0-2.0 [facility] Comment on above: Order Comment: Order Added by Discern Expert. Performed By: #### 1 [id number], 0248423, 5849991, 0122394, 84953048, 3559122, 7584864, 2242708, 1701632, 80908752, 6591110 #### [facility] [address] [place] [address]87 Basophils/Leukocytes Auto (Bld) [Pure # fraction] 0.1 E9/L Normal 0.0-0.2 [facility] Comment on above: Order Comment: Order Added by Discern Expert. Performed By: #### 1 3028069, 5867101, 3710924, 1569727, 86250347, 5021037, 3478018, 4295391, 1280619, 63483562, 6940166 #### [facility] [address] [place] [address] 50188 Eosinophils/100 WBC (Bld) 1.9 % Normal 0.0-8.0 [facility] Comment on above: Order Comment: Order Added by Discern Expert. Performed By: #### 1 2952851, 2433393, 6705372, 8680403, 80180341, 5816843, 9608451, 9064871, 7527706, 75833300, 2454270 #### [facility] [address] [place] [address]9556 Eosinophils/Leukocytes Auto (Bld) [Pure # fraction] 0.1 E9/L Normal 0.0-0.5 [facility] Comment on above: Order Comment: Order Added by Discern Expert. Performed By: #### 1 6987432, 7161859, 0106198, 0780073, 10884404, 1333018, 2222077, 8185264, 3467511, 06076783, 6354163 #### [facility] [address] [place] [address] 47940 Lymphocytes/100 WBC (Bld) 28.0 % Normal 14.0-50.0 [facility] Comment on above: Order Comment: Order Added by Discern Expert. Performed By: #### 1 4756572, 6323487, 8551072, 8437951, 35518849, 6893972, 8233003, 9594675, 6788508, 47867912, 3282852 #### [facility] [address] [place] [address] 47677 Lymphocytes/Leukocytes Auto (Bld) [Pure # fraction] 2.2 E9/L Normal 1.0-4.0 [facility] Comment on above: Order Comment: Order Added by Discern Expert. Performed By: #### 1 6525868, 4573130, 9884672, 7830658, 37793434, 1915271, 7063664, 4303200, 8388227, 93291244, 2240262 #### [facility] [address] [place] [address] 37286 Monocytes/100 WBC (Bld) 7.0 % Normal 4.0-14.0 [facility] Comment on above: Order Comment: Order Added by Discern Expert. Performed By: #### 1 1592400, 5479534, 6893525, 3381258, 67510108, 8192519, 8011272, 8770975, 4087933, 87705107, 4937796 #### [facility] [address] [place] [address] 88969 Monocytes/Leukocytes Auto (Bld) [Pure # fraction] 0.6 E9/L Normal 0.2-1.0 [facility] Comment on above: Order Comment: Order Added by Tosin Expert. Performed By: #### 1 7637842, 8709906, 5480661, 0964302, 36662154, 0894265, 4885384, 9905455, 5060025, 75527308, 4776760 #### [facility] [address] [place] [address] 35302 Neutrophils/100 WBC (Bld) 62.3 % Normal 36.0-75.0 [facility] Comment on above: Order Comment: Order Added by Discern Expert. Performed By: #### 1 3877905, 1595711, 4849278, 0502048, 68240572, 9805257, 5198006, 1227927, 7893141, 28515957, 1747813 #### [facility] [address] [place] [address] 57345 Neutrophils/Leukocytes Auto (Bld) [Pure # fraction] 4.9 E9/L Normal 2.0-7.5 [facility] Comment on above: Order Comment: Order Added by Tosin Expert. Performed By: #### 1 8246837, 6694390, 2549375, 6037511, 59632073, 2058659, 5264309, 6863923, 7189393, 33030122, 5203673 #### [facility] [address] [place] [address] BMPon 01-11-2019 Creatinine [Mass/Vol] 0.7 mg/dL Normal 0.5-1.3 [facility] Comment on above: Performed By: #### 1 0657882, 1759093, 5809420, 4883059, 56415028, 0330184, 7500174, 7401524, 1116228, 58590734, 2242707 #### [facility] [address] [place] [address] Urea nitrogen [Mass/Vol] 11 mg/dL Normal 5-21 [facility] Comment on above: Performed By: #### 1 9054612, 6428371, 6609117, 2008425, 34296147, 6378115, 9873534, 3364685, 8793779, 96525446, 5284500 #### [facility] [address] [place] [address] Urea nitrogen/Creatinine [Mass ratio] 16 No Units Normal 10-20 [facility] Comment on above: Performed By: #### 1 1490792, 8299726, 2877852, 5346587, 70864078, 3673941, 1056885, 3050575, 7735973, 39958097, 6196469 #### [facility] [address] [place] [address] Anion gap [Moles/Vol] 14 mmol/L Normal 6-16 [facility] Comment on above: Performed By: #### 1 2646035, 8174883, 0403272, 3182648, 61047481, 4215144, 4447888, 5790296, 6695681, 33597205, 7560373 #### [facility] [address] [place] [address] Calcium [Mass/Vol] 8.9 mg/dL Normal 8.9-11.1 [facility] Comment on above: Performed By: #### 1 1913468, 5650675, 0565032, 8452739, 40914589, 5110838, 9093617, 3850608, 7447579, 55376329, 9495712 #### [facility] [address] [place] [address] Chloride [Moles/Vol] 107 mmol/L Normal 101-111 [facility] Comment on above: Performed By: #### 1 4357515, 9122575, 6371183, 1997424, 77744217, 5503964, 2951158, 3800849, 2742017, 89694041, 5393002 #### [facility] [address] [place] [address] CO2 [Moles/Vol] 22 mmol/L Normal 21-31 [facility] Comment on above: Performed By: #### 1 0694524, 5951995, 0226625, 5200470, 16942610, 8224991, 7204245, 0292304, 0880267, 68779148, 8466883 #### [facility] [address] [place] [address] Glucose [Mass/Vol] 122 mg/dL Normal 55-199 [facility] Comment on above: Result Comment: If t his glucose result represents a fasting glucose, interpretation should refer to the following reference range: 55-99 mg/dL Performed By: #### 1 6522099, 1418645, 2835925, 6194104, 14124364, 6470432, 9029769, 1982985, 0434177, 05654134, 3003977 #### [facility] [address] [place] [address] Potassium [Moles/Vol] 3.8 mmol/L Normal 3.5-5.3 [facility] Comment on above: Performed By: #### 1 4276733, 4894650, 7668010, 9201364, 60358619, 2502846, 7342161, 5761538, 7665766, 20544413, 9605740 #### [facility] [address] [place] [address] Sodium [Moles/Vol] 139 mmol/L Normal 135-145 [facility] Comment on above: Performed By: #### 1 8467068, 9150502, 3259574, 0651135, 57930305, 1528783, 0153414, 4770164, 3687843, 55546777, 6533013 #### [facility] [address] [place] [address] CBC w/ Auto Diffon Erythrocyte distribution width (RBC) [Ratio] 14.0 % Normal 10.9-14.2 [facility] Comment on above: Performed By: #### 1 6196169, 3001074, 8521884, 9480137, 26046696, 4059115, 6411564, 7047969, 5556764, 26167659, 6851942 #### [facility] [address] [place] [address] Hematocrit (Bld) [Volume fraction] 39.9 % Normal 34.0-46.0 [facility] Comment on above: Performed By: #### 1 8152465, 2368240, 7594630, 8703216, 73533813, 6686062, 8537555, 4386140, 2874220, 73558723, 3416341 #### [facility] [address] [place] [address] Hemoglobin (Bld) [Mass/Vol] 13.5 g/dL Normal 12.0-16.0 [facility] Comment on above: Performed By: #### 1 5554358, 0220743, 6186754, 8893100, 16585644, 1180415, 1803004, 9772910, 1822908, 68188649, 6933679 #### [facility] [address] [place] [address] MCH (RBC) [Entitic mass] 29.4 pg Normal 27.0-34.0 [facility] Comment on above: Performed By: #### 1 0287021, 5674721, 9209285, 6009958, 33021116, 3558893, 5872777, 3882719, 2977227, 72194381, 4461084 #### [facility] [address] [place] [address] MCHC (RBC) [Mass/Vol] 33.7 g/dL Normal 33.3-35.7 [facility] Comment on above: Performed By: #### 1 6623692, 6354096, 4419549, 6254534, 43929006, 7088457, 2190674, 3221748, 9770480, 04006234, 9370463 #### [facility] [address] [place] [address] MCV (RBC) [Entitic vol] 87.4 fL Normal 80.0-100.0 [facility] Comment on above: Performed By: #### 1 4429996, 7185485, 5744803, 4937149, 38134234, 9121579, 9743324, 4262896, 3070646, 31422675, 7532907 #### [facility] [address] [place] [address] Platelet mean volume (Bld) [Entitic vol] 8.5 fL Normal 6.4-10.8 [facility] Comment on above: Performed By: #### 1 0455092, 9833946, 3887778, 7817304, 00313674, 1614915, 3083253, 7672171, 1003793, 32718878, 5984665 #### [facility] [address] [place] [address] Platelets (Bld) [#/Vol] 244.0 E9/L Normal 150.0-500.0 [facility] Comment on above: Performed By: #### 1 3620165, 0865320, 0190986, 2437671, 18679594, 5643039, 8858125, 8549311, 9255281, 12404765, 4716156 #### [facility] [address] [place] [address] RBC (Bld) [#/Vol] 4.6 E12/L Normal 4.3-5.9 [facility] Comment on above: Performed By: #### 1 3128624, 6780563, 0051980, 2086150, 92054196, 3605925, 2891566, 9523941, 7523820, 52250878, 7182841 #### [facility] [address] [place] [address] WBC corrected for nucl RBC Auto (Bld) [#/Vol] 7.9 E9/L Normal 4.0-11.0 [facility] Comment on above: Performed By: #### 1 0456961, 7762214, 6668790, 4467813, 27553673, 0169369, 6100751, 7320698, 8938521, 26102775, 1111284 #### [facility] [address] [place] [address] D-Dimeron 01-11-2019 Fibrin D-dimer FEU (PPP) [Mass/Vol] 265 ng/mL Normal 215-500 [facility] Comment on above: Result Comment: [...] infections Liver cirrhosis Performed By: #### 1 4101495, 2931965, 8010896, 0754563, 66865236, 5703910, 4912092, 7932889, 0919000, 95627632, 3189204 #### [facility] [address] [place] [address] ED Clinical Summaryon 2018 ED Clinical Summary [address] [address] ED Clinical Summary Person Information Name: ARIADNA HALEY [place] Age: 38 Years : 1980 12:00 AM Sex: Female Language: Scottish PCP: House DO, P Marital Status: Single Phone: [phone] Visit Id: Visit Reason: Chest pain; CHEST [...] 01/11/2019 6:42 PM 01/11/2019 6:42 PM ADDRESS: [address] [place] [id number] PHYS DOC NOTES: MEDICAL INFORMATION: Prescriptions Given: PATIENT EDUCATION INFORMATION: Instructions: Smoking Cessation; Chest Pain (Nonspecific) Follow up: With: Address: When: [place] [phone] Business (1) Within 2 to 3 days Comments: Return to ED if symptoms worsen DIAGNOSIS: 1:Chest pain Normal [facility] ED Note-Physicianon 01-12-20 ED Note-Physician Basic Information [...] prescription medications Follow-up With When Contact Information Corey Within 2 to 3 days [address] [place] [address]- Business (1) Additional Instructions: Return to [...] Lymph Auto: 28 % (01/11/19 16:46:00 EDT) Prowers Auto: 7 % (01/11/19 16:46:00 EDT) Eos Auto: 1.9 % (01/11/19 16:46:00 EDT) Basophil Auto: 0.8 % (01/11/19 16:46:00 EDT) Neutro Absolute: 4.9 E9/L (01/11/19 16:46:00 EDT) Lymph Absolute: 2.2 E9/L (01/11/19 16:46:00 EDT) Prowers Absolute: 0.6 E9/L (01/11/19 16:46:00 EDT) Eos [...] Results EC01/11/19: SINUS RHYTHM RATE 84, NORMAL ME AND QRS, NO ST ELEVATION OR DEPRSSION, NORMAL AXIS, NORMAL QTC NORMAL ECG Signed By: Orin Browne DO 01/11/2019 15:54:18 Normal [facility] Comment on above: Result Comment: [...] and skin patches. Some may be available [id number] and others require a prescription. ? Antidepressant [...] Document Reviewed: 08/18/2012 ExitCare? Patient Information ?2014 [facility]. This information is not intended to replace [...] Document Reviewed: 12/13/2008 ExitCare? Patient Information ?2015 [employer]. This information is not intended to replace advice given to you by your health care provider. Make sure you discuss any questions you have with your health care provider. Normal [facility] ED Patient Summaryon 019 ED Patient Summary [place] [id number] Patient Discharge Instructions Person Information Name: ARIADNA HALEY Age: 38 Years Arrival Date: 01/11/2019 3:44 PM Discharge Diagnosis: 1:Chest pain Primary Care Physician: Charles Nicole DO Provider Information Primary Provider: Orin Browne DO [employer] Estimator:None The exam and treatment you received in the Emergency Department were for an urgent problem and are not intended as complete care. It is important that you follow up with a doctor, nurse practitioner, or physician?s senior assistant manager for ongoing care. If your symptoms become worse or you do not improve as expected and you are unable to reach your usual health care provider, you should return to the Emergency Department. We are available 24 hours a day. ARIADNA HALEY has been given the following list of patient education materials, prescriptions and follow-up instructions: Follow-up Instructions: With: Address: When: [place] [address] Business (1) Within 2 to 3 days [...] opioids can be used to help relieve bpmfowhg-lc-ewhyaf pain and are often prescribed following a [...] be struggling with addiction, tell your health rn primary care and ask for guidance or call [facility] National Helpline at 4-961-751-HFMK. o Source: [place] Department of Health and Human Services/Center for Disease Control & Prevention [facility] Medications Given: Medication Dose Route No medications found. Medication Information: Medications to Continue with No Changes Other Medications metformin (metformin 500 mg ER Tab) 250 Milligram By Mouth 2 times a day. Comment: Pharmacy Information: Thank you for choosing [facility] Patient Education Materials: Smoking Cessation Quitting [...] and skin patches. Some may be available [id number]-jobfdsq and others require a prescription. ? Antidepressant [...] Document Reviewed: 08/18/2012 ExitCare? Patient Information ?2014 [employer]. This information is not intended to replace [...] Document Reviewed: 12/13/2008 ExitCare? Patient Information ?2015 [employer]. This information is not intended to replace advice given to you by your health care provider. Make sure you discuss any questions you have with your health care provider. TERA Dorantes NICOLE B , have received the following patient education materials/instruction s and have verbalized understanding: Patient Education Materials: Smoking Cessation; Chest Pain (Nonspecific) Follow-up Instructions: With: Address: When: [place] [address] [facility] (1) Within 2 to 3 days Comments: Return to ED if symptoms worsen Prescriptions: Patient Signature Date Clinician/Nurse Signature Date 01/11/19 18:42:28 Normal [facility] Progress Note-Nurseon 2018 Progress Note-Nurse Pt explained discharge instructions and voiced understanding. Pt sts she will follow up with her PCP and denies any furthe questions at this time. Normal [facility] Troponin 0 Hr.on 01-11-2019 Troponin I.cardiac [Mass/Vol] ng/mL Normal <=0.03 [facility] Comment on above: Result Comment: New Troponin Assay 10/05/13 KRISHNA RI Cutoff value > or = 0.03 ng/mL in conjunction with clinical conditions of myocardial infarction. (www.escardio.org/guidelines) Performed By: #### 1 4246164, 7848032, 2835274, 2272084, 34915722, 6698631, 4481686, 2148763, 1989647, 29622698, 3646236 #### [facility] [address] [place] [address] eGFRon 01-11-2019 GFR/1.73 sq M predicted among blacks MDRD (S/P/Bld) [Vol rate/Area] mL/min/{1.73_m2} Normal >=59 [facility] Comment on above: Order Comment: Order added by Discern Expert. Result Comment: eGFR is race adjusted. AA=. Performed By: #### 1 7202573, 4050065, 5837120, 8778473, 24258217, 2042948, 6564328, 4086361, 4078544, 97254422, 1622205 #### [facility] [address] [place] [address] GFR/1.73 sq M predicted among non-blacks MDRD (S/P/Bld) [Vol rate/Area] mL/min/{1.73_m2} Normal >=59 [facility] Comment on above: Order Comment: Order added by Discern Expert. Result Comment: Jd Edwards Consultant anthony kidney disease could be indicated at eGFR's of less than 60 mL/min/1.73m2. Kidney failure is indicated at less than 15 mL/min/1.73m2. Performed By: #### 1 9346515, 8384283, 0236007, 8698722, 03641376, 6405210, 9027297, 6119350, 8508894, 22227332, 3426526 #### [facility] [address] [place] [address] SPINE, LUMBOSACRAL CMPLT(TOOTIE DING)on 12-05-2018 SPINE, LUMBOSACRAL CMPLT(BENDING) Patient Name: ARIADNA HALEY STUDY: SPINE, LUMBOSACRAL; CMPLT(BENDING); 12/05/2018 1:47 pm INDICATION: LUMBAR XR. COMPARISON: None. ACCESSION NUMBER(S): [id number] ORDERING CLINICIAN: KADE RICHARDSON FINDINGS: No lumbar spine fracture. Scattered small endplate osteophytes. Vertebral body and disc space heights are are maintained. 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 No spondylolisthesis. No instability on flexion or extension. IMPRESSION: Degenerative changes of the lumbar spine without instability. Electronically signed by: EARNESTINE MANUEL MD [facility] Coding Summary.on 09-15-2018 Coding Summary. CODING DATE: 09/15/2018 FINAL [facility] DSC STATUS: Home (Routine DC) PAYOR: [...] Other correction (current) drug therapy PYMT PROC PG STAT DESCRIPTION DOCTOR NAME DATE NOTE: The code number assigned matches the documented diagnosis and / or procedure in the patient's chart. However, the narrative phrase printed from the coding software may appear abbreviated, or result in slightly different terminology. Coded By: Luz Judd Date Saved: 09/15/2018 07:15 am Normal [facility] Auto Diffon 09-14-2018 Basophils/100 WBC (Bld) 0.6 % Normal 0.0-2.0 [facility] Comment on above: Order Comment: Order Added by Discern Expert. Performed By: #### 1 5945525, 4066449, 9893001, 4496513, 54044306, 4947067, 6532266, 5057950, 1451413, 64826604, 3972420 #### [facility] [address] [place] [address] Basophils/Leukocytes Auto (Bld) [Pure # fraction] 0.1 E9/L Normal 0.0-0.2 [facility] Comment on above: Order Comment: Order Added by Discern Expert. Performed By: #### 1 4782839, 3101249, 4498313, 3956717, 51225198, 8164752, 9663608, 3787021, 4444589, 16918516, 0166920 #### [facility] [address] [place] [address] Eosinophils/100 WBC (Bld) 2.2 % Normal 0.0-8.0 [facility] Comment on above: Order Comment: Order Added by Discern Expert. Performed By: #### 1 4398866, 0129773, 1066636, 8497548, 77098644, 8006095, 3799826, 9350848, 0256067, 36302044, 2341975 #### [facility] [address] [place] [address] Eosinophils/Leukocytes Auto (Bld) [Pure # fraction] 0.2 E9/L Normal 0.0-0.5 [facility] Comment on above: Order Comment: Order Added by Discern Expert. Performed By: #### 1 7426008, 4478685, 5405467, 1473013, 35200662, 5940817, 2214646, 7867288, 2627828, 00981647, 7138204 #### [facility] [address] [place] [address] Lymphocytes/100 WBC (Bld) 30.6 % Normal 14.0-50.0 [facility] Comment on above: Order Comment: Order Added by Discern Expert. Performed By: #### 1 7323487, 4612990, 8194555, 7016665, 24104322, 3576410, 7094070, 8229282, 2490378, 42316266, 7627065 #### [facility] [address] [place] [address] Lymphocytes/Leukocytes Auto (Bld) [Pure # fraction] 3.0 E9/L Normal 1.0-4.0 [facility] Comment on above: Order Comment: Order Added by Discern Expert. Performed By: #### 1 1241963, 7904671, 8997330, 8893442, 86095412, 1947368, 7356356, 0019065, 7365474, 51992906, 1910988 #### [facility] [address] [place] [address] Monocytes/100 WBC (Bld) 7.2 % Normal 4.0-14.0 [facility] Comment on above: Order Comment: Order Added by Discern Expert. Performed By: #### 1 2687895, 4213873, 1375020, 2005587, 11191732, 3550042, 7443348, 4679560, 9610293, 50787695, 0603318 #### [facility] [address] [place] [address] Monocytes/Leukocytes Auto (Bld) [Pure # fraction] 0.7 E9/L Normal 0.2-1.0 [facility] Comment on above: Order Comment: Order Added by Tosin Expert. Performed By: #### 1 4826659, 2425282, 9383948, 9822254, 06179783, 2972950, 0520955, 5708020, 8059064, 90203470, 4861320 #### [facility] [address] [place] [address] Neutrophils/100 WBC (Bld) 59.4 % Normal 36.0-75.0 [facility] Comment on above: Order Comment: Order Added by Discern Expert. Performed By: #### 1 1941766, 4245352, 2779185, 2068080, 30854926, 6261181, 6714204, 4184152, 2307422, 25596773, 4069213 #### [facility] [address] [place] [address] Neutrophils/Leukocytes Auto (Bld) [Pure # fraction] 5.9 E9/L Normal 2.0-7.5 [facility] Comment on above: Order Comment: Order Added by Discern Expert. Performed By: #### 1 7163649, 1071058, 1094402, 6966246, 05718009, 4284502, 7748151, 4609730, 4900420, 09130437, 1725477 #### [facility] [address] [place] [address] BMPon 09-14-2018 Creatinine [Mass/Vol] 0.6 mg/dL Normal 0.5-1.3 [facility] Comment on above: Performed By: #### 1 9948603, 6688910, 5631516, 1822115, 03975289, 8722707, 3370832, 5167673, 8421596, 28603150, 0050534 #### [facility] [address] [place] [address] Urea nitrogen [Mass/Vol] 15 mg/dL Normal 5-21 [facility] Comment on above: Performed By: #### 1 8737113, 4206673, 2926349, 0221631, 54402629, 5011180, 8938412, 6499392, 5904874, 33417618, 9669415 #### [facility] [address] [place] [address] Urea nitrogen/Creatinine [Mass ratio] 25 No Units High 10-20 [facility] Comment on above: Performed By: #### 1 9282567, 5764886, 9863883, 4775434, 48381759, 0334279, 1063700, 9248156, 8241074, 03262851, 1388524 #### [facility] [address] [place] [address] Anion gap [Moles/Vol] 13 mmol/L Normal 6-16 [facility] Comment on above: Performed By: #### 1 6973653, 1264137, 6814241, 0131211, 10231166, 0346154, 9113904, 5154561, 7919385, 43226113, 5337159 #### [facility] [address] [place] [address] Calcium [Mass/Vol] 9.5 mg/dL Normal 8.9-11.1 [facility] Comment on above: Performed By: #### 1 4980935, 7217196, 9957526, 5599737, 98524834, 3626864, 2658718, 2711542, 6988865, 84400191, 8845054 #### [facility] [address] [place] [address] Chloride [Moles/Vol] 103 mmol/L Normal 101-111 [facility] Comment on above: Performed By: #### 1 4007704, 2791019, 4046349, 2570976, 74786999, 7852704, 5654220, 9085875, 7049503, 57719059, 0200431 #### [facility] [address] [place] [address] CO2 [Moles/Vol] 24 mmol/L Normal 21-31 [facility] Comment on above: Performed By: #### 1 4365801, 4787698, 6261425, 8876597, 03049816, 3621028, 0416732, 0676708, 3764632, 55455130, 4209511 #### [facility] [address] [place] [address] Glucose [Mass/Vol] 102 mg/dL Normal 55-199 [facility] Comment on above: Result Comment: If t his glucose result represents a fasting glucose, interpretation should refer to the following reference range: 55-99 mg/dL Performed By: #### 1 7839706, 7771856, 2576539, 8376782, 47235001, 7361310, 1036522, 1263124, 3492429, 95771752, 3389867 #### [facility] [address] [place] [address] Potassium [Moles/Vol] 3.6 mmol/L Normal 3.5-5.3 [facility] Comment on above: Performed By: #### 1 1960428, 5887193, 2227581, 0895676, 83266479, 2592127, 6577863, 3998440, 7119674, 55507728, 0122509 #### [facility] [address] [place] [address] Sodium [Moles/Vol] 136 mmol/L Normal 135-145 [facility] Comment on above: Performed By: #### 1 0946947, 7929285, 9871207, 3797386, 88629901, 8153745, 5235832, 1713599, 9452380, 20029444, 4897222 #### [facility] [address] [place] [address] CBC w/ Auto Diffon Erythrocyte distribution width (RBC) [Ratio] 14.2 % Normal 10.9-14.2 [facility] Comment on above: Performed By: #### 1 0960518, 7703792, 6925441, 9289754, 27366591, 6715662, 4756447, 4561906, 3470041, 58213292, 9689263 #### [facility] [address] [place] [address] Hematocrit (Bld) [Volume fraction] 39.4 % Normal 34.0-46.0 [facility] Comment on above: Performed By: #### 1 8353399, 7851718, 3380111, 9816189, 67899195, 5725743, 8534032, 4763138, 6396807, 20459965, 1509196 #### [facility] [address] [place] [address] Hemoglobin (Bld) [Mass/Vol] 13.3 g/dL Normal 12.0-16.0 [facility] Comment on above: Performed By: #### 1 5719925, 5977543, 7249791, 3358472, 88233097, 2245201, 4099434, 0979353, 8311753, 27977569, 2047384 #### [facility] [address] [place] [address] MCH (RBC) [Entitic mass] 29.2 pg Normal 27.0-34.0 [facility] Comment on above: Performed By: #### 1 3989718, 0266974, 8216000, 7252532, 11769931, 0555655, 0712354, 0728314, 2782385, 40822603, 2004051 #### [facility] [address] [place] [address] MCHC (RBC) [Mass/Vol] 33.8 g/dL Normal 33.3-35.7 [facility] Comment on above: Performed By: #### 1 1865815, 3423270, 1628979, 9032174, 99044839, 9113735, 9348619, 2485638, 7775208, 25430615, 6252932 #### [facility] [address] [place] [address] MCV (RBC) [Entitic vol] 86.6 fL Normal 80.0-100.0 [facility] Comment on above: Performed By: #### 1 5107158, 2464235, 2829230, 6066181, 77487678, 9584885, 5743704, 6291807, 8489345, 76728856, 8566380 #### [facility] [address] [place] [address] Platelet mean volume (Bld) [Entitic vol] 8.8 fL Normal 6.4-10.8 [facility] Comment on above: Performed By: #### 1 2889924, 8648164, 9240261, 7195749, 41843179, 1114441, 6567479, 5931967, 1581593, 48391341, 2051884 #### [facility] [address] [place] [address] Platelets (Bld) [#/Vol] 307.0 E9/L Normal 150.0-500.0 [facility] Comment on above: Performed By: #### 1 7443309, 3549669, 7783726, 7075431, 45357103, 1991251, 1821275, 2704915, 7412170, 76873346, 7269084 #### [facility] [address] [place] [address] RBC (Bld) [#/Vol] 4.6 E12/L Normal 4.3-5.9 [facility] Comment on above: Performed By: #### 1 3528797, 4878805, 6483678, 5365779, 55055515, 2623995, 2248846, 1007495, 0266858, 99320190, 9973107 #### [facility] [address] [place] [address] WBC corrected for nucl RBC Auto (Bld) [#/Vol] 9.9 E9/L Normal 4.0-11.0 [facility] Comment on above: Performed By: #### 1 0796733, 4874226, 5340594, 1720493, 17290306, 4430156, 4787064, 1778501, 6003402, 39820112, 7620246 #### [facility] [address] [place] [address] [facility] [Catalytic activity/Vol] 53 Int._Unit/L Normal 14-261 [facility] Comment on above: Performed By: #### 1 5321472, 3549756, 0976479, 2722544, 60081216, 3190139, 1623815, 7089783, 7230453, 92401483, 3582797 #### [facility] [address] [place] [address] ED Clinical Summaryon 2018 ED Clinical Summary [address] [address] ED Clinical Summary Person Information Name: ARIADNA HALEY [place] Age: 37 Years : 1980 12:00 AM Sex: Female Language: Scottish PCP: Charles Nicole DO Marital Status: Single Phone: [phone] Visit Id: Visit Reason: Anxiety; Paraesthesia; NUMBNESS [...] 09/14/2018 12:17 AM 09/14/2018 12:17 AM ADDRESS: [address] [place] [phone] PHYS DOC NOTES: MEDICAL INFORMATION: Prescriptions Given: Prescription Display gabapentin (gabapentin 100 mg Cap) 100 mg = 1 cap(s), Oral, Daily, X 7 day(s), # 7 cap(s), Refills(s) 0, Pharmacy: [facility] gabapentin (gabapentin 100 mg Cap) 100 mg = 1 cap(s), Oral, Daily, X 7 day(s), # 7 cap(s), Refills(s) 0, Pharmacy: [facility] #[id number] magnesium oxide (magnesium oxide 400 mg Tab) 400 mg = 1 tab(s), Oral, Daily, X 7 day(s), # 7 tab(s), Refills(s) 0, Pharmacy: [facility] magnesium oxide (magnesium oxide 400 mg Tab) 400 mg = 1 tab(s), Oral, Daily, X 7 day(s), # 7 tab(s), Refills(s) 0, [id number] Home Meds Display metformin (metformin 500 mg ER Tab) 250 mg, Oral, BID, Refills(s) 0 PATIENT EDUCATION INFORMATION: Instructions: Paresthesia, Mqvd-tl-Dpha; Restless Legs Syndrome Follow up: With: Address: When: Sayda Kelley [address] [address] Business (1) Within 1 to 2 days Comments: neurologist you may also follow up with him With: Address: When: [address] [address] Business (1) Within 1 to 2 days Comments: Return to ED if symptoms worsen DIAGNOSIS: 1:Restless leg syndrome Normal [facility] ED Note-Nursingon 09-14-2018 ED Note-Nursing Pt up to RR, gait steady. Normal [facility] ED Note-Nursing Aware of need for urine specimen, denies urge at present, states will notify when able to produce sample, will monitor. Normal [facility] ED Note-Physicianon 09-15-19 19 ED [...] day(s), # 7 cap(s), Refills(s) 0, Pharmacy: [facility]/pharmacy #6177 magnesium oxide, 400 mg = 1 tab(s), Oral, Daily, X 7 day(s), # 7 tab(s), Refills(s) 0, Pharmacy: [facility]/pharmacy #6177 Sodium Chloride 0.9% intravenous solution 1,000 [...] Sayda Kelley Within 1 to [address] [address]- Business (1) Additional Instructions: neurologist you may also follow up with him Charles Nicole Within 1 to [address] [place] [address]- Business (1) Additional Instructions: Return to ED if symptoms worsen Patient Education Paresthesia, Jith-mo-Penj Restless Legs Syndrome Problem List/Past Medical History [...] Lymph Auto: 30.6 % (09/13/18 23:03:00 EDT) [place] Auto: 7.2 % (09/13/18 23:03:00 EDT) Eos Auto: 2.2 % (09/13/18 23:03:00 EDT) Basophil Auto: 0.6 % (09/13/18 23:03:00 EDT) Neutro Absolute: 5.9 E9/L (09/13/18 23:03:00 EDT) Lymph Absolute: 3 E9/L (09/13/18 23:03:00 EDT) [place] Absolute: 0.7 E9/L (09/13/18 23:03:00 EDT) Eos [...] Diagnostic Results No qualifying data available. Normal [facility] Comment on above: Result Comment: [...] Document Reviewed: 01/29/2012 ExitCare? Patient Information ?2015 [employer]. This information is not intended to replace [...] ? Drawing. ? Crawling. ? [place]orming. ? [place]. ? Tingling. ? Pins and needles. ? [...] Document Reviewed: 08/06/2011 ExitCare? Patient Information ?2015 [place]. This information is not intended to replace advice given to you by your health care provider. Make sure you discuss any questions you have with your health care provider. Normal [facility] ED Patient Summaryon 019 ED Patient Summary [place] [id number] Patient Discharge Instructions Person Information Name: ARIADNA HALEY Age: 37 Years Arrival Date: 09/13/2018 10:16 PM Discharge Diagnosis: 1:Restless leg syndrome Primary Care Physician: Charles Nicole DO Provider Information Primary Provider: Génesis Lozoya DO [employer] Estimator:None The exam and treatment you received in the Emergency Department were for an urgent problem and are not intended as complete care. It is important that you follow up with a doctor, nurse practitioner, or physician?s senior assistant manager for ongoing care. If your symptoms [...] Follow-up Instructions: With: Address: When: Sayda Kelley [address] [address] Business (1) Within 1 to 2 days Comments: neurologist you may also follow up with him With: Address: When: Charles Nicole [address] [phone] Business (1) Within 1 to 2 days Comments: Return to ED if symptoms worsen In the event that this physician does not participate in your insurance network, please consult with your insurance company to find a nearby participating provider. Patient Education Materials: Paresthesia, Bhsp-xh-Gvqy; Restless Legs Syndrome A MESSAGE TO ALL PATIENTS REGARDING OPIOIDS PRESCRIPTION OPIOIDS: WHAT YOU NEED TO KNOW Prescription opioids can be used to help relieve ltrjfkvi-xn-nsogqc pain and are often prescribed following a [...] be struggling with addiction, tell your health rn primary care and ask for guidance or call [facility]?S National Helpline at 1-953-232-CDFA. v Source: [place] Department of Health and Human Services/Center for Disease Control & Prevention [facility] Medications Given: Medication Dose Route Sodium Chloride 0.9% intravenous solution 1000.00 mL Initial Volume 1000.00 mL/hr IV Piggyback Left Mid Forearm Medication Information: New Medications [id number], [address], [place] [id number], [phone] gabapentin (gabapentin 100 mg Cap) 1 Capsules By Mouth every day for 7 Days. Refills: 0. magnesium oxide (magnesium oxide 400 mg Tab) 1 Tabs By Mouth every day for 7 Days. Refills: 0. [facility], [address] [place], [place] [id number], [phone] gabapentin (gabapentin 100 mg Cap) 1 Capsules By Mouth every day for 7 Days. Refills: 0. magnesium oxide (magnesium oxide 400 mg Tab) 1 Tabs By Mouth every day for 7 Days. Refills: 0. Medications to Continue with No Changes Other Medications metformin (metformin 500 mg ER Tab) 250 Milligram By Mouth 2 times a day. Comment: Pharmacy Information: Thank you for choosing [facility] Patient Education Materials: Paresthesia Paresthesia is [...] Document Reviewed: 01/29/2012 ExitCare? Patient Information ?2015 [employer]. This information is not intended to replace [...] ? Drawing. ? Crawling. ? [place]. ? [place]. ? Tingling. ? Pins and needles. ? [...] Document Reviewed: 08/06/2011 ExitCare? Patient Information ?2014 [employer]. This information is not intended to replace advice given to you by your health care provider. Make sure you discuss any questions you have with your health care provider. TERA Dorantes NICOLE B , have received the following patient education materials/instruction s and have verbalized understanding: Patient Education Materials: Paresthesia, Rdyz-rn-Wkkn; Restless Legs Syndrome Follow-up Instructions: With: Address: When: Sayda Kelley [address] [address] Business (1) Within 1 to 2 days Comments: neurologist you may also follow up with him With: Address: When: [address] [address] Business (1) Within 1 to 2 days Comments: Return to ED if symptoms worsen Prescriptions: [gabapentin (gabapentin 100 mg Cap)] [gabapentin (gabapentin 100 mg Cap)] [magnesium oxide (magnesium oxide 400 mg Tab)] [magnesium oxide (magnesium oxide 400 mg Tab)] Patient Signature Date Clinician/Nurse Signature Date 09/14/18 00:21:38 [facility] Hep Func Panelon 09-14-2018 Bilirubin.direct [Mass/Vol] [facility] Abnormal 0.1-0.9 [facility] Comment on above: Result Comment: Resu lt verified by Discern Rule. Performed result [facility] (Unable to Calculate) was sent as an Alpha code due the inability to calculate a valid numeric value. Performed By: #### 1 9069840, 9406608, 5957515, 7198767, 55947578, 2850669, 6517802, 1498288, 9308727, 41465400, 5891756 #### [facility] [address] [place] [address] Albumin [Mass/Vol] 1.1 g/dL Normal 1.1-2.2 [facility] Comment on above: Performed By: #### 1 2044711, 4548693, 5827363, 8202561, 08522571, 3930486, 4166249, 4045942, 7229417, 52015959, 6437954 #### [facility] [address] [place] [address] Albumin [Mass/Vol] 4.1 g/dL Normal 3.3-5.0 [facility] Comment on above: Performed By: #### 1 7294193, 3533177, 6644404, 9972837, 68536466, 3150869, 1436316, 3523330, 4070118, 12015737, 3205284 #### [facility] [address] [place] [address] ALP [Catalytic activity/Vol] 69 Int._Unit/L Normal 21-98 [facility] Comment on above: Performed By: #### 1 3087292, 2649921, 3010648, 7917939, 09613740, 7261260, 0726186, 5527881, 1907360, 25567630, 2279839 #### [facility] [address] [place] [address] ALT No additional P-5'-P [Catalytic activity/Vol] 27 Int._Unit/L Normal 6-46 [facility] Comment on above: Performed By: #### 1 5265277, 9338297, 6454598, 8351555, 95340694, 1361030, 6829156, 1888320, 2175629, 21283511, 5277038 #### [facility] [address] [place] [address] AST [Catalytic activity/Vol] 16 Int._Unit/L Normal 5-43 [facility] Comment on above: Performed By: #### 1 7671341, 6046390, 0783370, 9541473, 42801756, 1369578, 9373230, 6928999, 2764277, 41827040, 1810673 #### [facility] [address] [place] [address] Bilirubin [Mass/Vol] 0.5 mg/dL Normal 0.0-1.1 [facility] Comment on above: Performed By: #### 1 5989286, 9879997, 8360853, 6152595, 22189124, 9378128, 9839781, 0694899, 0802657, 80979608, 0230542 #### [facility] [address] [place] [address] Bilirubin.direct [Mass/Vol] mg/dL Normal 0.1-0.4 [facility] Comment on above: Performed By: #### 1 3390976, 6368964, 5744042, 4872110, 72882862, 6570383, 5090076, 5564354, 7179485, 52226694, 0838255 #### [facility] [address] [place] [address] Globulin (S) [Mass/Vol] 3.7 g/dL Normal 1.4-4.0 [facility] Comment on above: Performed By: #### 1 2875058, 1502664, 8183123, 8601001, 29754071, 8749366, 4405973, 3211397, 7960874, 36104036, 2113996 #### [facility] [address] [place] [address] Protein [Mass/Vol] 7.8 g/dL Normal 6.0-7.8 [facility] Comment on above: Performed By: #### 1 7404578, 9132206, 2750293, 9567296, 74899856, 6242782, 9575056, 7717592, 3400005, 76894193, 3769866 #### [facility] [address] [place] [address] Magnesiumon 09-14-2018 Magnesium [Mass/Vol] 1.9 mg/dL Normal 1.3-2.4 [facility] Comment on above: Performed By: #### 1 0393926, 1894811, 5400029, 5591477, 56393805, 9874805, 3162184, 4219452, 6148444, 91766322, 0824148 #### [facility] [address] [place] [address] Myoglobinon 09-14-2018 Myoglobin [Mass/Vol] 9 ng/mL Normal <=69 [facility] Comment on above: Performed By: #### 1 0273902, 8966325, 6194775, 6219871, 39817133, 8055373, 3607855, 8231105, 9807306, 49772396, 2831259 #### [facility] [address] [place] [address] PT & PTTon 09-14-2018 aPTT Coag (PPP) [Time] 34.5 second(s) Normal 25.1-36.5 [facility] Comment on above: Result Comment: Hepa rin therapeutic range (represented by Anti-Factor Xa activity of 0.2 - 0.4 U/mL) corresponds to PTT of 56.6 - 109.0 sec. Performed By: #### 1 5234047, 8619572, 3722483, 4884034, 25483525, 5238127, 3470371, 6913428, 2486053, 92736422, 5355064 #### [facility] [address] [place] [address] INR Coag (PPP) [Relative time] 1.0 {INR} [facility] Comment on above: Result Comment: INR results are specifically intended to assess patients stabilized on long-term Anticoagulation therapy suggested INR?s ?Less Intensive Anticoagulation? 2.0 ? 3.0 Conventional Range 3.0 ? 4.5 Performed By: #### 1 3116792, 6959507, 6838393, 6946465, 72496584, 1640258, 8539883, 0731883, 6752757, 58022869, 4001758 #### [facility] [address] [place] [address] PT Coag (PPP) [Time] 11.2 second(s) Normal 10.2-12.9 [facility] Comment on above: Performed By: #### 1 7951169, 9450289, 8908381, 6704578, 49919503, 1608925, 7118291, 0410461, 2564438, 48128448, 1271892 #### [facility] [address] [place] [address] Phosphoruson 09-14-2018 Phosphate [Mass/Vol] 3.8 mg/dL Normal 1.9-4.6 [facility] Comment on above: Performed By: #### 1 8433758, 1536056, 9049654, 1545653, 45439982, 7158371, 2097140, 0560583, 9281195, 15562418, 3729544 #### [facility] [address] [place] [address] Troponin 0 Hr.on 09-14-2018 Troponin I.cardiac [Mass/Vol] ng/mL Normal <=0.03 [facility] Comment on above: Result Comment: New Troponin Assay 10/05/13 KRISHNA RI Cutoff value > or = 0.03 ng/mL in conjunction with clinical conditions of myocardial infarction. ([email or web address]) Performed By: #### 1 [id number], 2164036, 9298108, 6864996, 57114449, 2138035, 8097258, 4293957, 1011455, 81820944, 2628597 #### [facility] [address] [place] [address] UA With Cult Reflexon 2018 Bacteria LM Ql (Urine sed) TRACE Normal Trace [facility] Comment on above: Performed By: #### 1 [id number], 0914426, 1113049, 9978217, 90069360, 2446688, 4057798, 3036170, 8345988, 00375395, 8869637 #### [facility] [address] [place] [address] Bilirubin Ql (U) Negative Normal Negative [facility] Comment on above: Performed By: #### 1 [id number], 0835321, 8404084, 9499084, 55846326, 7017285, 0255092, 9506856, 7525594, 22876758, 5035935 #### [facility] [address] [place] [address] Clarity (U) CLEAR Normal Clear [facility] Comment on above: Performed By: #### 1 1378204, 4210018, 9592490, 0307434, 73484551, 7482388, 5047898, 5944455, 1359984, 27423684, 9952557 #### [facility] [address] [place] [address] Color (U) YELLOW Normal Yellow [facility] Comment on above: Performed By: #### 1 [id number], 5095326, 7875240, 7668983, 91384863, 9478076, 9390528, 8599828, 4248917, 18567579, 3157257 #### [facility] [address] [place] [address] Epithelial cells.squamous LM.HPF (Urine sed) [#/Area] 0-2 Normal 0-2 [facility] Comment on above: Performed By: #### 1 [id number], 5746758, 3843485, 1285569, 00683005, 4832220, 3017993, 6992390, 1936759, 47380442, 1196056 #### [facility] [address] [place] [address] Glucose Test strip (U) [Mass/Vol] Negative Normal Negative [facility] Comment on above: Performed By: #### 1 2127277, 6613953, 6448446, 8755268, 75347658, 1555651, 1591651, 6587365, 0755507, 16784123, 9443825 #### [facility] [address] [place] [address] Hemoglobin Ql (U) Negative Normal Negative [facility] Comment on above: Performed By: #### 1 6902856, 0380487, 9584090, 6557942, 36423149, 5224587, 7212114, 1121116, 0989312, 43057100, 1171436 #### [facility] [address] [place] [address] Ketones (U) [Mass/Vol] Negative Normal Negative [facility] Comment on above: Performed By: #### 1 2886811, 8952259, 0300514, 0371015, 01982991, 1357562, 9021967, 0858013, 9126325, 79458317, 4887146 #### [facility] [address] [place] [address] Crowheart.plasma/Crowheart .RBC (Bld) [Mass ratio] 0-3 Normal 0-3 [facility] Comment on above: Performed By: #### 1 7815329, 4519215, 2109927, 4318326, 16404742, 4357887, 9349175, 0506756, 4405802, 56880346, 0249736 #### [facility] [address] [place] [address] Mucus Ql (Urine sed) TRACE Normal [facility] Comment on above: Performed By: #### 1 6552940, 5437263, 9547055, 3283811, 22659730, 6473986, 8109263, 9361452, 1267017, 23145041, 0845407 #### [facility] [address] [place] [address] Nitrite Ql (U) Negative Normal Negative [facility] Comment on above: Performed By: #### 1 8740524, 7666805, 8217899, 0896193, 85281069, 2289807, 9216158, 0792442, 5297885, 69805620, 6964055 #### [facility] [address] [place] [address] pH (U) 6.0 [pH] 5.0-9.0 [facility] Comment on above: Performed By: #### 1 2072331, 3471137, 1126449, 0284051, 95720808, 6660030, 7356292, 8242459, 1389613, 89382078, 7446112 #### [facility] [address] [place] [address] Protein (U) [Mass/Vol] Negative Normal Negative [facility] Comment on above: Performed By: #### 1 8545673, 5268512, 2729507, 3097110, 40683161, 0094723, 6178425, 9976494, 8263427, 35906313, 4195963 #### [facility] [address] [place] [address] Specific gravity (U) [Rel density] 1.010 1.005-1.030 [facility] Comment on above: Performed By: #### 1 5041633, 2693411, 1351103, 9055808, 36908969, 3920218, 6246079, 1054814, 8996593, 13091738, 1171979 #### [facility] [address] [place] [address] UA Spec Desc Clean Catch Normal [facility] Comment on above: Performed By: #### 1 1925710, 3543249, 7853266, 9332534, 72122185, 3542895, 3932536, 3698177, 5211372, 37750169, 3253119 #### [facility] [address] [place] [address] Urobilinogen Qn (U) 0.2 {Carmella'U}/dL Normal 0.0-1.0 [facility] Comment on above: Performed By: #### 1 2374507, 6201765, 3611779, 5789672, 20088284, 1900379, 5866892, 1301459, 8531990, 65857156, 5523142 #### [facility] [address] [place] [address] WBC Auto Ql (U) Negative Normal Negative [facility] Comment on above: Performed By: #### 1 0840351, 8641894, 7245412, 6536407, 62802984, 3270691, 6035893, 9484566, 7876494, 38264694, 0170800 #### [facility] [address] [place] [address] WBC LM.HPF (Urine sed) [#/Area] 0-5 Normal 0-5 [facility] Comment on above: Performed By: #### 1 7567046, 5048652, 3353056, 7980003, 78789701, 9786052, 7570478, 9505782, 4882983, 46959524, 9727242 #### [facility] [address] [place] [address] XR Chest Single Viewon 09-14 XR Chest [...] M.D. Transcribed by: minoo Technologist: AP Normal [facility] XR FOOT LEFT (MIN 3 VIEWS)on 09-14-2018 XR FOOT LEFT (MIN 3 VIEWS) Radiology exam is complete. No Radiologist dictation. Please follow up with ordering provider. Final result Normal [facility] XR FOOT RIGHT (MIN 3 VIEWS)o n 09-14-2018 XR FOOT RIGHT (MIN 3 VIEWS) Radiology exam is complete. No Radiologist dictation. Please follow up with ordering provider. Final result Normal [facility] eGFRon 09-14-2018 GFR/1.73 sq M predicted among blacks MDRD (S/P/Bld) [Vol rate/Area] mL/min/{1.73_m2} Normal >=59 [facility] Comment on above: Order Comment: Order added by Discern Expert. Result Comment: eGFR is race adjusted. AA=. Performed By: #### 1 [id number], 6234918, 3068445, 5341431, 11365362, 1025754, 5548179, 1139909, 6113197, 51556831, 8082924 #### [facility] [address] [place] [address] GFR/1.73 sq M predicted among non-blacks MDRD (S/P/Bld) [Vol rate/Area] mL/min/{1.73_m2} Normal >=59 [facility] Comment on above: Order Comment: Order added by Discern Expert. Result Comment: Jd Edwards Consultant anthony kidney disease could be indicated at eGFR's of less than 60 mL/min/1.73m2. Kidney failure is indicated at less than 15 mL/min/1.73m2. Performed By: #### 1 6063769, 1519025, 7344511, 7442057, 95895817, 4228147, 4018958, 0305833, 4524625, 71538554, 6916378 #### [facility] [address] [place] [address] Vital Signs Date Time Vital Sign Value Performing Clinician Facility 07-31-2024 16:05-0400 Diastolic blood pressure 70 mm[Hg] Gay Enciso NITROGLYCERIN SEPARATOR OPERATOR-C Work Phone: [facility] 07-31-2024 16:05-0400 Heart rate 108 /min Gay Enciso NITROGLYCERIN SEPARATOR OPERATOR-C Work Phone: [facility] 07-31-2024 16:05-0400 SaO2% (BldA) [Mass fraction] 96 % Gay Enciso NITROGLYCERIN SEPARATOR OPERATOR-C Work Phone: [facility] 07-31-2024 16:05-0400 Systolic blood pressure 104 mm[Hg] Gay Enciso NITROGLYCERIN SEPARATOR OPERATOR-C Work Phone: [facility] 07-26-2024 15:06-0500 Body height 170.2 cm Lois Holm MD Work Phone: [facility] 07-26-2024 15:06-0500 Body mass index (BMI) [Ratio] 44.92 kg/m2 Lois Holm MD Work Phone: [facility] 07-26-2024 15:06-0500 Body weight 130.09 kg Lois Holm MD Work Phone: [facility] 07-26-2024 15:06-0500 Diastolic blood pressure 60 mm[Hg] Lois Holm MD Work Phone: [facility] 07-26-2024 15:06-0500 Heart rate 84 /min Lois Holm MD Work Phone: [facility] 07-26-2024 15:06-0500 Systolic blood pressure 100 mm[Hg] Lois Holm MD Work Phone: [facility] 07-19-2024 11:27-0500 Diastolic blood pressure 90 mm[Hg] Gay Enciso NITROGLYCERIN SEPARATOR OPERATOR-C Work Phone: [facility] 07-19-2024 11:27-0500 Heart rate 78 /min Gay Enciso NITROGLYCERIN SEPARATOR OPERATOR-C Work Phone: [facility] 07-19-2024 11:27-0500 Respiratory rate 16 /min Gay Enciso NITROGLYCERIN SEPARATOR OPERATOR-C Work Phone: [facility] 07-19-2024 11:27-0500 SaO2% (BldA) [Mass fraction] 96 % Gay Enciso NITROGLYCERIN SEPARATOR OPERATOR-C Work Phone: [facility] 07-19-2024 11:27-0500 Systolic blood pressure 126 mm[Hg] Gay Enciso NITROGLYCERIN SEPARATOR OPERATOR-C Work Phone: [facility] 07-19-2024 09:54-0500 Body height 170.18 cm Gay Britt NITROGLYCERIN SEPARATOR OPERATOR-C Work Phone: [facility] 07-19-2024 09:54-0500 Body weight 127 kg Gay Britt NITROGLYCERIN SEPARATOR OPERATOR-C Work Phone: [facility] 07-12-2024 14:16-0500 Body temperature 96.91 [degF] Marky Barnes PA-C Work Phone: [facility] 07-11-2024 14:30-0500 Body temperature 97.39 [degF] Chair [place] Work Phone: [facility] 07-11-2024 14:30-0500 Diastolic blood pressure 80 mm[Hg] Chair Gabbi Work Phone: [facility] 07-11-2024 14:30-0500 Heart rate 69 /min Chair Gabbi Work Phone: [facility] 07-11-2024 14:30-0500 Respiratory rate 18 /min Chair [place] Work Phone: [facility] 07-11-2024 14:30-0500 SaO2% (BldA) [Mass fraction] 98 % Chair [place] Work Phone: [facility] 07-11-2024 14:30-0500 Systolic blood pressure 119 mm[Hg] Chair [place] Work Phone: [facility] 07-10-2024 15:25-0500 Diastolic blood pressure 70 mm[Hg] [facility] 07-10-2024 15:25-0500 Heart rate 106 /min [facility] 07-10-2024 15:25-0500 SaO2% (BldA) [Mass fraction] 97 % [facility] 07-10-2024 15:25-0500 Systolic blood pressure 102 mm[Hg] [facility] 06-13-2024 14:55-0500 Diastolic blood pressure 56 mm[Hg] Chair [place] Work Phone: [facility] 06-13-2024 14:55-0500 Heart rate 70 /min Chair Gabbi Work Phone: [facility] 06-13-2024 14:55-0500 Respiratory rate 18 /min Chair Gabbi Work Phone: [facility] 06-13-2024 14:55-0500 SaO2% (BldA) [Mass fraction] 98 % Chair Gabbi Work Phone: [facility] 06-13-2024 14:55-0500 Systolic blood pressure 93 mm[Hg] Chair Gabbi Work Phone: [facility] 06-13-2024 08:55-0500 Body mass index (BMI) [Ratio] 45.08 kg/m2 Vaibhav Carvalho GORE STITCHER.MANAGER INTELLIGENCE Work Phone: [facility] 06-13-2024 08:55-0500 Body temperature 97.59 [degF] Vaibhav John GORE STITCHER.MANAGER INTELLIGENCE Work Phone: [facility] 06-13-2024 08:55-0500 Body weight 130.6 kg Vaibhav Carvalho GORE STITCHER.MANAGER INTELLIGENCE Work Phone: [facility] 06-13-2024 08:55-0500 Diastolic blood pressure 71 mm[Hg] Vaibhav John GORE STITCHER.MANAGER INTELLIGENCE Work Phone: [facility] 06-13-2024 08:55-0500 Heart rate 79 /min Vaibhav John GORE STITCHER.MANAGER INTELLIGENCE Work Phone: [facility] 06-13-2024 08:55-0500 Respiratory rate 16 /min Vaibhav John GORE STITCHER.MANAGER INTELLIGENCE Work Phone: [facility] 06-13-2024 08:55-0500 SaO2% (BldA) [Mass fraction] 98 % Vaibhav Carvalho GORE STITCHER.MANAGER INTELLIGENCE Work Phone: [facility] 06-13-2024 08:55-0500 Systolic blood pressure 106 mm[Hg] Vaibhav John GORE STITCHER.MANAGER INTELLIGENCE Work Phone: [facility] 06-06-2024 11:37-0500 Body mass index (BMI) [Ratio] 45.08 kg/m2 Oly Plascencia PA Work Phone: [facility] 06-06-2024 11:37-0500 Body weight 130.54 kg Oly Plascencia PA Work Phone: [facility] 06-06-2024 11:37-0500 Diastolic blood pressure 70 mm[Hg] Oly Plascencia PA Work Phone: [facility] 06-06-2024 11:37-0500 Systolic blood pressure 120 mm[Hg] Oly Plascencia PA Work Phone: [facility] 05-19-2024 15:02-0500 Body temperature 97.3 [degF] Chair [place] Work Phone: [facility] 05-19-2024 15:02-0500 Diastolic blood pressure 63 mm[Hg] Chair [place] Work Phone: [facility] 05-19-2024 15:02-0500 Heart rate 73 /min Chair [place] Work Phone: [facility] 05-19-2024 15:02-0500 Respiratory rate 20 /min Chair Gabbi Work Phone: [facility] 05-19-2024 15:02-0500 SaO2% (BldA) [Mass fraction] 98 % Chair [place] Work Phone: [facility] Comment on above: 05-19-2024 15:02-0500 Systolic blood pressure 114 mm[Hg] Chair [place] Work Phone: [facility] 04-26-2024 09:31-0500 Body temperature 97.59 [degF] Ma Sand Work Phone: [facility] 04-26-2024 09:31-0500 Diastolic blood pressure 78 mm[Hg] Ma Sand Work Phone: [facility] Comment on above: Manual 04-26-2024 09:31-0500 Heart rate 66 /min Ma Sand Work Phone: [facility] 04-26-2024 09:31-0500 Respiratory rate 16 /min Ma Sand Work Phone: [facility] 04-26-2024 09:31-0500 SaO2% (BldA) [Mass fraction] 99 % Ma Sand Work Phone: [facility] 04-26-2024 09:31-0500 Systolic blood pressure 122 mm[Hg] Ma Sand Work Phone: [facility] Comment on above: Manual 04-10-2024 10:12-0500 Body height 170.2 cm Gordo Barfield MD Work Phone: [facility] 04-10-2024 10:12-0500 Body mass index (BMI) [Ratio] 44.95 kg/m2 Gordo Barfield MD Work Phone: [facility] 04-10-2024 10:12-0500 Body weight 130.18 kg Gordo Barfield MD Work Phone: [facility] 04-10-2024 10:12-0500 Diastolic blood pressure 70 mm[Hg] Gordo Barfield MD Work Phone: [facility] 04-10-2024 10:12-0500 Systolic blood pressure 110 mm[Hg] Gordo Barfield MD Work Phone: [facility] 04-06-2024 10:00-0500 Body height 170.2 cm Hyaden Arciniega MD Work Phone: [facility] 04-06-2024 10:00-0500 Body mass index (BMI) [Ratio] 43.07 kg/m2 Hayden Arciniega MD Work Phone: [facility] 04-06-2024 10:00-0500 Body temperature 97 [degF] Hayden Arciniega MD Work Phone: [facility] 04-06-2024 10:00-0500 Body weight 124.74 kg Hayden Arciniega MD Work Phone: [facility] 04-06-2024 10:00-0500 Diastolic blood pressure 80 mm[Hg] Hayden Arciniega MD Work Phone: [facility] 04-06-2024 10:00-0500 Heart rate 86 /min Hayden Arciniega MD Work Phone: [facility] 04-06-2024 10:00-0500 SaO2% (BldA) [Mass fraction] 97 % Hayden Arciniega MD Work Phone: [facility] 04-06-2024 10:00-0500 Systolic blood pressure 136 mm[Hg] Hayden Arciniega MD Work Phone: [facility] 04-02-2024 13:27-0500 Body mass index (BMI) [Ratio] 45.42 kg/m2 Marky Mike DO Work Phone: [facility] 04-02-2024 13:27-0500 Body temperature 98.71 [degF] Marky Mike DO Work Phone: [facility] 04-02-2024 13:27-0500 Body weight 131.54 kg Marky Mike DO Work Phone: [facility] 04-02-2024 13:27-0500 Diastolic blood pressure 90 mm[Hg] Marky Mike DO Work Phone: [facility] 04-02-2024 13:27-0500 Heart rate 78 /min Marky Mike DO Work Phone: [facility] 04-02-2024 13:27-0500 SaO2% (BldA) [Mass fraction] 99 % Marky Mike DO Work Phone: [facility] 04-02-2024 13:27-0500 Systolic blood pressure 132 mm[Hg] Marky Mike DO Work Phone: [facility] 03-23-2024 14:35-0400 Body mass index (BMI) [Ratio] 44.17 kg/m2 Oly WARREN Work Phone: [facility] 03-23-2024 14:35-0400 Body weight 127.91 kg Oly WARREN Work Phone: [facility] 03-23-2024 14:35-0400 Diastolic blood pressure 76 mm[Hg] Oly WARREN Work Phone: [facility] 03-23-2024 14:35-0400 Systolic blood pressure 122 mm[Hg] Oly WARREN Work Phone: [facility] 03-23-2024 10:11-0400 Body height 170.2 cm Ma Sand Work Phone: [facility] 03-23-2024 10:11-0400 Body mass index (BMI) [Ratio] 43.06 kg/m2 Ma Sand Work Phone: [facility] 03-23-2024 10:11-0400 Body temperature 97.59 [degF] Ma Sand Work Phone: [facility] 03-23-2024 10:11-0400 Body weight 124.74 kg Ma Sand Work Phone: [facility] 03-23-2024 10:11-0400 Diastolic blood pressure 85 mm[Hg] Ma Sand Work Phone: [facility] 03-23-2024 10:11-0400 Heart rate 71 /min Ma Sand Work Phone: [facility] 03-23-2024 10:11-0400 Respiratory rate 16 /min Ma Sand Work Phone: [facility] 03-23-2024 10:11-0400 SaO2% (BldA) [Mass fraction] 94 % Ma Sand Work Phone: [facility] 03-23-2024 10:11-0400 Systolic blood pressure 135 mm[Hg] Ma Sand Work Phone: [facility] 03-16-2024 11:24-0400 Body mass index (BMI) [Ratio] 43.67 kg/m2 Luan Valdivia DO Work Phone: [facility] 03-16-2024 11:24-0400 Body weight 126.46 kg Luan Skip DO Work Phone: [facility] 03-16-2024 11:24-0400 Diastolic blood pressure 70 mm[Hg] Luan Skip DO Work Phone: [facility] 03-16-2024 11:24-0400 Systolic blood pressure 120 mm[Hg] Luan Skip DO Work Phone: [facility] 03-16-2024 09:20-0400 Body height 170.18 cm NITROGLYCERIN SEPARATOR OPERATOR-C Gayomer Johnmer Work Phone: [facility] 03-16-2024 09:20-0400 Body mass index (BMI) [Ratio] 43 kg/m2 NITROGLYCERIN SEPARATOR OPERATOR-C Gay Britt Work Phone: [facility] 03-16-2024 09:20-0400 Body weight 124.73 kg NITROGLYCERIN SEPARATOR OPERATOR-C Gay Enciso Work Phone: [facility] 02-21-2024 11:04-0400 Body temperature 97.2 [degF] Ma Sand Work Phone: [facility] 02-21-2024 11:04-0400 Diastolic blood pressure 68 mm[Hg] Ma Sand Work Phone: [facility] Comment on above: manual 02-21-2024 11:04-0400 Heart rate 95 /min Ma Sand Work Phone: [facility] 02-21-2024 11:04-0400 Respiratory rate 16 /min Ma Sand Work Phone: [facility] 02-21-2024 11:04-0400 SaO2% (BldA) [Mass fraction] 98 % Ma Sand Work Phone: [facility] 02-21-2024 11:04-0400 Systolic blood pressure 102 mm[Hg] Ma Sand Work Phone: [facility] Comment on above: manual 02-16-2024 09:23-0400 Diastolic blood pressure 72 mm[Hg] NITROGLYCERIN SEPARATOR OPERATOR-C Gay Britt Work Phone: [facility] 02-16-2024 09:23-0400 Heart rate 70 /min NITROGLYCERIN SEPARATOR OPERATOR-C Gay Enciso Work Phone: [facility] 02-16-2024 09:23-0400 Respiratory rate 16 /min NITROGLYCERIN SEPARATOR OPERATOR-C Gay Enciso Work Phone: [facility] 02-16-2024 09:23-0400 SaO2% (BldA) [Mass fraction] 96 % NITROGLYCERIN SEPARATOR OPERATOR-C Gay Enciso Work Phone: [facility] 02-16-2024 09:23-0400 Systolic blood pressure 126 mm[Hg] NITROGLYCERIN SEPARATOR OPERATOR-C Gay Enciso Work Phone: [facility] 02-16-2024 07:27-0400 Body height 170.18 cm NITROGLYCERIN SEPARATOR OPERATOR-C Gay Enciso Work Phone: [facility] 02-16-2024 07:27-0400 Body weight 122.46 kg NITROGLYCERIN SEPARATOR OPERATOR-C Gay Enciso Work Phone: [facility] 01-28-2024 11:31-0400 Body weight 126.6 kg [facility] 01-28-2024 11:31-0400 Diastolic blood pressure 80 mm[Hg] [facility] 01-28-2024 11:31-0400 Heart rate 69 /min [facility] 01-28-2024 11:31-0400 SaO2% (BldA) [Mass fraction] 98 % [facility] 01-28-2024 11:31-0400 Systolic blood pressure 120 mm[Hg] [facility] 01-25-2024 11:30-0400 Body temperature 97.39 [degF] Ma Sand Work Phone: [facility] 01-25-2024 11:30-0400 Diastolic blood pressure 67 mm[Hg] Ma Sand Work Phone: [facility] 01-25-2024 11:30-0400 Heart rate 68 /min Ma Sand Work Phone: [facility] 01-25-2024 11:30-0400 Respiratory rate 16 /min Ma Sand Work Phone: [facility] 01-25-2024 11:30-0400 SaO2% (BldA) [Mass fraction] 99 % Ma Sand Work Phone: [facility] 01-25-2024 11:30-0400 Systolic blood pressure 92 mm[Hg] Ma Sand Work Phone: [facility] 12-27-2023 11:16-0400 Diastolic blood pressure 68 mm[Hg] Juli Liz PA-C Work Phone: [facility] 12-27-2023 11:16-0400 Systolic blood pressure 98 mm[Hg] Juli Liz PA-C Work Phone: [facility] 12-27-2023 11:02-0400 Body height 170.2 cm Juli Liz PA-C Work Phone: [facility] 12-27-2023 11:02-0400 Body mass index (BMI) [Ratio] 43.08 kg/m2 Juli Liz PA-C Work Phone: [facility] 12-27-2023 11:02-0400 Body temperature 97.7 [degF] Juli Liz PA-C Work Phone: [facility] 12-27-2023 11:02-0400 Body weight 124.8 kg Juli Liz PA-C Work Phone: [facility] 12-27-2023 11:02-0400 Heart rate 89 /min Juli Liz PA-C Work Phone: [facility] 12-27-2023 11:02-0400 Respiratory rate 16 /min Juli Liz PA-C Work Phone: [facility] 12-27-2023 11:02-0400 SaO2% (BldA) [Mass fraction] 98 % Juli Liz PA-C Work Phone: [facility] 12-16-2023 14:13-0400 Body height 170.18 cm [facility] 12-16-2023 14:13-0400 Body mass index (BMI) [Ratio] 42.7 kg/m2 [facility] 12-16-2023 14:13-0400 Body temperature 98.6 [degF] [facility] 12-16-2023 14:13-0400 Body weight 123.83 kg [facility] 12-16-2023 14:13-0400 Diastolic blood pressure 73 mm[Hg] [facility] 12-16-2023 14:13-0400 Heart rate 75 /min [facility] 12-16-2023 14:13-0400 Systolic blood pressure 106 mm[Hg] [facility] 11-29-2023 13:43-0400 Body temperature 97.59 [degF] Ma Sand Work Phone: [facility] 11-29-2023 13:43-0400 Diastolic blood pressure 51 mm[Hg] Ma Sand Work Phone: [facility] 11-29-2023 13:43-0400 Heart rate 73 /min Ma Sand Work Phone: [facility] 11-29-2023 13:43-0400 Respiratory rate 16 /min Ma Sand Work Phone: [facility] 11-29-2023 13:43-0400 SaO2% (BldA) [Mass fraction] 96 % Ma Sand Work Phone: [facility] 11-29-2023 13:43-0400 Systolic blood pressure 83 mm[Hg] Ma Sand Work Phone: [facility] 11-04-2023 13:55-0400 Body height 170.18 cm [facility] 11-04-2023 13:55-0400 Body temperature 97.3 [degF] [facility] 11-04-2023 13:55-0400 Diastolic blood pressure 54 mm[Hg] [facility] 11-04-2023 13:55-0400 Heart rate 62 /min [facility] 11-04-2023 13:55-0400 Systolic blood pressure 104 mm[Hg] [facility] 10-27-2023 14:44-0400 Body temperature 97 [degF] Ma Sand Work Phone: [facility] 10-27-2023 14:44-0400 Diastolic blood pressure 72 mm[Hg] Ma Sand Work Phone: [facility] 10-27-2023 14:44-0400 Heart rate 97 /min Ma Sand Work Phone: [facility] 10-27-2023 14:44-0400 Respiratory rate 18 /min Ma Sand Work Phone: [facility] 10-27-2023 14:44-0400 SaO2% (BldA) [Mass fraction] 97 % Ma Sand Work Phone: [facility] 10-27-2023 14:44-0400 Systolic blood pressure 110 mm[Hg] Ma Sand Work Phone: [facility] 10-20-2023 13:10-0400 Body height 170.18 cm [facility] 10-20-2023 13:10-0400 Body mass index (BMI) [Ratio] 43.2 kg/m2 [facility] 10-20-2023 13:10-0400 Body temperature 97.3 [degF] [facility] 10-20-2023 13:10-0400 Body weight 125.19 kg [facility] 10-20-2023 13:10-0400 Diastolic blood pressure 54 mm[Hg] [facility] 10-20-2023 13:10-0400 Heart rate 74 /min [facility] 10-20-2023 13:10-0400 Systolic blood pressure 111 mm[Hg] [facility] 09-30-2023 10:48-0400 Body temperature 97 [degF] Ma Sand Work Phone: [facility] 09-30-2023 10:48-0400 Diastolic blood pressure 82 mm[Hg] Ma Sand Work Phone: [facility] 09-30-2023 10:48-0400 Heart rate 71 /min Ma Sand Work Phone: [facility] 09-30-2023 10:48-0400 Respiratory rate 18 /min Ma Sand Work Phone: [facility] 09-30-2023 10:48-0400 SaO2% (BldA) [Mass fraction] 97 % Ma Sand Work Phone: [facility] 09-30-2023 10:48-0400 Systolic blood pressure 132 mm[Hg] Ma Sand Work Phone: [facility] 09-22-2023 14:41-0400 Body weight 117.93 kg [facility] 08-31-2023 10:34-0400 Body temperature 97.3 [degF] Ma Sand Work Phone: [facility] 08-31-2023 10:34-0400 Diastolic blood pressure 66 mm[Hg] Ma Sand Work Phone: [facility] 08-31-2023 10:34-0400 Heart rate 68 /min Ma Sand Work Phone: [facility] 08-31-2023 10:34-0400 Respiratory rate 18 /min Ma Sand Work Phone: [facility] 08-31-2023 10:34-0400 SaO2% (BldA) [Mass fraction] 99 % Ma Sand Work Phone: [facility] 08-31-2023 10:34-0400 Systolic blood pressure 105 mm[Hg] Ma Sand Work Phone: [facility] 08-05-2023 11:15-0400 Body temperature 97.39 [degF] Ma Sand Work Phone: [facility] 08-05-2023 11:15-0400 Diastolic blood pressure 41 mm[Hg] Ma Sand Work Phone: [facility] 08-05-2023 11:15-0400 Heart rate 68 /min Ma Sand Work Phone: [facility] 08-05-2023 11:15-0400 Respiratory rate 18 /min Ma Sand Work Phone: [facility] 08-05-2023 11:15-0400 SaO2% (BldA) [Mass fraction] 98 % Ma Sand Work Phone: [facility] 08-05-2023 11:15-0400 Systolic blood pressure 98 mm[Hg] Ma Sand Work Phone: [facility] 07-13-2023 11:49-0500 Body temperature 97.5 [degF] Ma Sand Work Phone: [facility] 07-13-2023 11:49-0500 Diastolic blood pressure 74 mm[Hg] Ma Sand Work Phone: [facility] 07-13-2023 11:49-0500 Heart rate 83 /min Ma Sand Work Phone: [facility] 07-13-2023 11:49-0500 Respiratory rate 18 /min Ma Sand Work Phone: [facility] 07-13-2023 11:49-0500 SaO2% (BldA) [Mass fraction] 96 % Ma Sand Work Phone: [facility] 07-13-2023 11:49-0500 Systolic blood pressure 109 mm[Hg] Ma Sand Work Phone: [facility] 07-13-2023 10:01-0500 Diastolic blood pressure 65 mm[Hg] Lois Holm MD Work Phone: [facility] 07-13-2023 10:01-0500 Systolic blood pressure 105 mm[Hg] Lois Holm MD Work Phone: [facility] 07-13-2023 09:41-0500 Body height 170.2 cm Lois Holm MD Work Phone: [facility] 07-13-2023 09:41-0500 Body mass index (BMI) [Ratio] 43.85 kg/m2 Lois Holm MD Work Phone: [facility] 07-13-2023 09:41-0500 Body weight 127.01 kg Lois Holm MD Work Phone: [facility] 07-13-2023 09:41-0500 Heart rate 71 /min Lois Holm MD Work Phone: [facility] 07-06-2023 14:48-0500 Body mass index (BMI) [Ratio] 41.81 kg/m2 Kade Richardson MD Work Phone: [facility] 07-06-2023 14:48-0500 Body weight 119.3 kg Kade Richardson MD Work Phone: [facility] 06-09-2023 08:45-0500 Body height 170.2 cm Michelle Jasmine [employer] Work Phone: [facility] 06-09-2023 08:45-0500 Body mass index (BMI) [Ratio] 44.48 kg/m2 Michelle Jasmine [employer] Work Phone: [facility] 06-09-2023 08:45-0500 Body weight 128.82 kg Michelle Jasmine [employer] Work Phone: [facility] 06-09-2023 08:45-0500 Diastolic blood pressure 82 mm[Hg] Mihcelle Jasmine [employer] Work Phone: [facility] 06-09-2023 08:45-0500 Heart rate 80 /min Michelle Jasmine [employer] Work Phone: [facility] 06-09-2023 08:45-0500 Systolic blood pressure 146 mm[Hg] Michelle Jasmine [employer] Work Phone: [facility] 05-26-2023 17:17-0500 Body weight 123.83 kg Christie Phan MD Work Phone: [facility] 04-26-2023 14:42-0500 Body weight 125.19 kg Christie Phan MD Work Phone: [facility] 03-19-2023 11:16-0400 Body temperature 97.7 [degF] Ma Sand Work Phone: [facility] 03-19-2023 11:16-0400 Diastolic blood pressure 54 mm[Hg] Ma Sand Work Phone: [facility] 03-19-2023 11:16-0400 Heart rate 75 /min Ma Sand Work Phone: [facility] 03-19-2023 11:16-0400 Respiratory rate 16 /min Ma Sand Work Phone: [facility] 03-19-2023 11:16-0400 SaO2% (BldA) [Mass fraction] 96 % Ma Sand Work Phone: [facility] 03-19-2023 11:16-0400 Systolic blood pressure 111 mm[Hg] Ma Sand Work Phone: [facility] 02-19-2023 10:56-0400 Body height 170.2 cm Vera Najera MD Work Phone: [facility] 02-19-2023 10:56-0400 Body temperature 97.39 [degF] Vera Najera MD Work Phone: [facility] 02-19-2023 10:56-0400 Body weight 120.75 kg Vera Najera MD Work Phone: [facility] 02-19-2023 10:56-0400 Diastolic blood pressure 69 mm[Hg] Vera Najera MD Work Phone: [facility] 02-19-2023 10:56-0400 Heart rate 110 /min Vera Najera MD Work Phone: [facility] 02-19-2023 10:56-0400 Respiratory rate 16 /min Vera Najera MD Work Phone: [facility] 02-19-2023 10:56-0400 SaO2% (BldA) [Mass fraction] 96 % Vera Najera MD Work Phone: [facility] 02-19-2023 10:56-0400 Systolic blood pressure 132 mm[Hg] Vera Najera MD Work Phone: [facility] 01-22-2023 12:09-0400 Diastolic blood pressure 76 mm[Hg] Ma Sand Work Phone: [facility] 01-22-2023 12:09-0400 Systolic blood pressure 107 mm[Hg] Ma Sand Work Phone: [facility] 01-22-2023 12:08-0400 Body temperature 97.59 [degF] Ma Sand Work Phone: [facility] 01-22-2023 12:08-0400 Heart rate 102 /min Ma Sand Work Phone: [facility] 01-22-2023 12:08-0400 Respiratory rate 16 /min Ma Sand Work Phone: [facility] 01-22-2023 12:08-0400 SaO2% (BldA) [Mass fraction] 97 % Ma Sand Work Phone: [facility] 11-19-2022 11:00-0400 Body temperature 97.2 [degF] Ma Sand Work Phone: [facility] 11-19-2022 11:00-0400 Diastolic blood pressure 54 mm[Hg] Ma Sand Work Phone: [facility] 11-19-2022 11:00-0400 Heart rate 98 /min Ma Sand Work Phone: [facility] 11-19-2022 11:00-0400 Respiratory rate 16 /min Ma Sand Work Phone: [facility] 11-19-2022 11:00-0400 SaO2% (BldA) [Mass fraction] 98 % Ma Sand Work Phone: [facility] 11-19-2022 11:00-0400 Systolic blood pressure 126 mm[Hg] Ma Sand Work Phone: [facility] 10-22-2022 11:51-0400 Body height 170.2 cm Ma Sand Work Phone: [facility] 10-22-2022 11:51-0400 Body weight 120.66 kg Ma Sand Work Phone: [facility] 10-22-2022 11:51-0400 Respiratory rate 16 /min Ma Sand Work Phone: [facility] 10-22-2022 10:50-0400 Body height 170.2 cm Vera Najera MD Work Phone: [facility] 10-22-2022 10:50-0400 Body temperature 97 [degF] Vera Najera MD Work Phone: [facility] 10-22-2022 10:50-0400 Body weight 120.75 kg Vera Najera MD Work Phone: [facility] 10-22-2022 10:50-0400 Diastolic blood pressure 55 mm[Hg] Vera Najera MD Work Phone: [facility] 10-22-2022 10:50-0400 Heart rate 78 /min Vera Najera MD Work Phone: [facility] 10-22-2022 10:50-0400 Respiratory rate 16 /min Vera Najera MD Work Phone: [facility] 10-22-2022 10:50-0400 SaO2% (BldA) [Mass fraction] 98 % Vera Najera MD Work Phone: [facility] 10-22-2022 10:50-0400 Systolic blood pressure 132 mm[Hg] Vera Najera MD Work Phone: [facility] 09-24-2022 10:22-0400 Body height 170.2 cm Ma Sand Work Phone: [facility] 09-24-2022 10:22-0400 Body temperature 97 [degF] Ma Sand Work Phone: [facility] 09-24-2022 10:22-0400 Body weight 120.2 kg Ma Sand Work Phone: [facility] 09-24-2022 10:22-0400 Diastolic blood pressure 81 mm[Hg] Ma Sand Work Phone: [facility] 09-24-2022 10:22-0400 Heart rate 77 /min Ma Sand Work Phone: [facility] 09-24-2022 10:22-0400 Respiratory rate 16 /min Ma Sand Work Phone: [facility] 09-24-2022 10:22-0400 SaO2% (BldA) [Mass fraction] 97 % Ma Sand Work Phone: [facility] 09-24-2022 10:22-0400 Systolic blood pressure 116 mm[Hg] Ma Sand Work Phone: [facility] 09-07-2022 14:03-0400 Body weight 120.2 kg Christie Phan MD Work Phone: [facility] 08-27-2022 09:45-0400 Body height 170.2 cm Rebekah Rojas APRN.MANAGER [employer] Work Phone: [facility] 08-27-2022 09:45-0400 Body temperature 97.7 [degF] Rebekah Rojas APRN.MANAGER [employer] Work Phone: [facility] 08-27-2022 09:45-0400 Body weight 118.66 kg Rebekah Rojas APRN.MANAGER [employer] Work Phone: [facility] 08-27-2022 09:45-0400 Diastolic blood pressure 55 mm[Hg] Rebekah Rojas APRN.MANAGER [employer] Work Phone: [facility] 08-27-2022 09:45-0400 Heart rate 63 /min Rebekah Rojas APRN.MANAGER [employer] Work Phone: [facility] 08-27-2022 09:45-0400 Respiratory rate 16 /min Rebekah Rojas APRN.MANAGER [employer] Work Phone: [facility] 08-27-2022 09:45-0400 SaO2% (BldA) [Mass fraction] 96 % Rebekah Rojas G[employer]ER.[employer]GER [employer] Work Phone: [facility] 08-27-2022 09:45-0400 Systolic blood pressure 117 mm[Hg] Rebekah Rojas APRN.MANAGER [employer] Work Phone: [facility] 05-20-2022 13:28-0500 Body height 170.2 cm Vera Najera MD Work Phone: [facility] 05-20-2022 13:28-0500 Body temperature 97.7 [degF] Vera Najera MD Work Phone: [facility] 05-20-2022 13:28-0500 Diastolic blood pressure 70 mm[Hg] Vera Najera MD Work Phone: [facility] 05-20-2022 13:28-0500 Heart rate 93 /min Vera Najera MD Work Phone: [facility] 05-20-2022 13:28-0500 Respiratory rate 16 /min Vera Najera MD Work Phone: [facility] 05-20-2022 13:28-0500 SaO2% (BldA) [Mass fraction] 97 % Vera Najera MD Work Phone: [facility] 05-20-2022 13:28-0500 Systolic blood pressure 127 mm[Hg] Vera Najera MD Work Phone: [facility] 03-18-2022 10:49-0400 Body height 170.2 cm Vera Najera MD Work Phone: [facility] 03-18-2022 10:49-0400 Body temperature 97.81 [degF] Vera Najera MD Work Phone: [facility] 03-18-2022 10:49-0400 Body weight 113.4 kg Vera Najera MD Work Phone: [facility] 03-18-2022 10:49-0400 Diastolic blood pressure 49 mm[Hg] Vera Najera MD Work Phone: [facility] 03-18-2022 10:49-0400 Heart rate 86 /min Vera Najera MD Work Phone: [facility] 03-18-2022 10:49-0400 Respiratory rate 16 /min Vera Najera MD Work Phone: [facility] 03-18-2022 10:49-0400 SaO2% (BldA) [Mass fraction] 98 % Vera Najera MD Work Phone: [facility] 03-18-2022 10:49-0400 Systolic blood pressure 145 mm[Hg] Vera Najera MD Work Phone: [facility] 03-09-2022 11:41-0400 Body height 170.2 cm Christie Phan MD Work Phone: [facility] 03-09-2022 11:41-0400 Body weight 112.49 kg Christie Phan MD Work Phone: [facility] 03-09-2022 11:41-0400 Diastolic blood pressure 100 mm[Hg] Christie Phan MD Work Phone: [facility] 03-09-2022 11:41-0400 Systolic blood pressure 158 mm[Hg] Christie Phan MD Work Phone: [facility] 03-04-2022 10:39-0400 Body height 170.2 cm Vera Najera MD Work Phone: [facility] 03-04-2022 10:39-0400 Body temperature 97.5 [degF] Vera Najera MD Work Phone: [facility] 03-04-2022 10:39-0400 Body weight 112.76 kg Vera Najera MD Work Phone: [facility] 03-04-2022 10:39-0400 Diastolic blood pressure 48 mm[Hg] Vera Najera MD Work Phone: [facility] 03-04-2022 10:39-0400 Heart rate 79 /min Vera Najera MD Work Phone: [facility] 03-04-2022 10:39-0400 Respiratory rate 16 /min Vera Najera MD Work Phone: [facility] 03-04-2022 10:39-0400 SaO2% (BldA) [Mass fraction] 99 % Vera Najera MD Work Phone: [facility] 03-04-2022 10:39-0400 Systolic blood pressure 132 mm[Hg] Vera Najera MD Work Phone: [facility] 11-26-2021 16:00-0400 Body height 168.91 cm Mirela Kelsey Other [employer] Other 11-26-2021 16:00-0400 Body mass index (BMI) [Ratio] 37.68 kg/m2 Mirela Kelsey Other [employer] Other 11-26-2021 16:00-0400 Body temperature 98.4 [degF] Mirela Kelsey Other [employer] Other 11-26-2021 16:00-0400 Body weight 107.5 kg Mirela Kelsey Other [employer] Other 11-26-2021 16:00-0400 Diastolic blood pressure 61 mm[Hg] Mirela Kelsey Other [employer] Other 11-26-2021 16:00-0400 Systolic blood pressure 115 mm[Hg] Mirela Kelsey Other [employer] Other 10-24-2021 08:18-0400 Body weight 108.86 kg Lynne Ni MD Work Phone: [facility] 10-24-2021 08:18-0400 Diastolic blood pressure 42 mm[Hg] Lynne Ni MD Work Phone: [facility] 10-24-2021 08:18-0400 Heart rate 72 /min Lynne Ni MD Work Phone: [facility] 10-24-2021 08:18-0400 Systolic blood pressure 106 mm[Hg] Lynne Ni MD Work Phone: [facility] 10-15-2021 15:45-0400 Body height 168.91 cm Mirela Kelsey Other [employer] Other 10-15-2021 15:45-0400 Body mass index (BMI) [Ratio] 38.31 kg/m2 Mirela Kelsey Other [employer] Other 10-15-2021 15:45-0400 Body temperature 98.1 [degF] Mirela Kelsey Other [employer] Other 10-15-2021 15:45-0400 Body weight 109.32 kg Mirela Kelsey Other [employer] Other 10-15-2021 15:45-0400 Diastolic blood pressure 60 mm[Hg] Mirela Kelsey Other [employer] Other 10-15-2021 15:45-0400 Systolic blood pressure 114 mm[Hg] Mirela Kelsey Other [employer] Other 09-11-2021 15:15-0400 Body height 168.91 cm Mirela Kelsey Other [employer] Other 09-11-2021 15:15-0400 Body mass index (BMI) [Ratio] 37.99 kg/m2 Mirela Kelsey Other [employer] Other 09-11-2021 15:15-0400 Body temperature 97.9 [degF] Mirela Kelsey Other [employer] Other 09-11-2021 15:15-0400 Body weight 108.41 kg Mirela Kelsey Other [employer] Other 09-11-2021 15:15-0400 Diastolic blood pressure 83 mm[Hg] Mirela Kelsey Other [employer] Other 09-11-2021 15:15-0400 Systolic blood pressure 144 mm[Hg] Mirela Kelsey Other [employer] Other 10-07-2020 12:45-0400 Diastolic blood pressure 78 mm[Hg] [employer] [employer] Phone: 10-07-2020 12:45-0400 Heart rate 68 /min [facility] [employer] Phone: 10-07-2020 12:45-0400 SaO2% (BldA) [Mass fraction] 99 % [employer] [facility] [employer] Phone: 10-07-2020 12:45-0400 Systolic blood pressure 112 mm[Hg] [facility] [employer] Phone: 10-07-2020 10:45-0400 Respiratory rate 22 /min [employer] [facility] [employer] Phone: 10-07-2020 09:01-0400 Body height 170.2 cm [facility] [employer] Phone: 10-07-2020 09:01-0400 Body mass index (BMI) [Ratio] 36.65 kg/m2 [employer] [facility] [employer] Phone: 10-07-2020 09:01-0400 Body temperature 97.81 [degF] [facility] [employer] Work Phone: 10-07-2020 09:01-0400 [facility] [employer] Work Phone: Encounters Encounter Date Encounter Type Care Provider Facility Start: 08-03-2024 End: 08-07-2024 Aaron Barnes PA-C Work Phone: Otolaryngology Comment on above: Med Change Request Start: 07-31-2024 End: 07-31-2024 ambulatory Gay LINC Work Phone: [facility] Work Phone: Start: 07-31-2024 End: 07-31-2024 Patient encounter procedure Gay Enciso NP-C [facility] Work Phone: Start: 07-26-2024 End: 07-26-2024 Office outpatient visit 25 minutes Lois Holm MD Work Phone: [facility] Comment on above: Sinus tachycardia (P rimary Dx); Shortness of breath; Paroxysmal supraventricular tachycardia (CMS-HCC); Essential hypertension; Obstructive sleep apnea syndrome; Morbid obesity (Multi); Current smoker Start: 07-26-2024 End: [facility] Start: 07-25-[facility]24 End: 07-25-2024 Bamboo flowsheet Bernabe English MD Work Phone: [facility] Start: 07-25-2024 End: 07-25-2024 Bamboo flowsheet Bernabe English MD Work Phone: [facility] Start: 07-25-2024 End: 07-25-2024 Office outpatient visit 25 minutes Bernabe English MD Work Phone: [facility] Comment on above: Hidradenitis suppura tiva (Primary Dx); Other seborrheic dermatitis; Lupus erythematosus tumidus (CMS/HCC); Rash and other nonspecific skin eruption; Capillary angioma; Neoplasm of uncertain behavior of skin Start: 07-25-2024 End: 07-25-2024 Specialty Pharmacy Aidee Quintan[facility] Comment on above: SPP Inflammatory Con ditions - Medication Refill (Benlysta) Start: 07-20-2024 End: 07-20-2024 Telemedicine consultation with patient Alhaji Head DO Work Phone: Infectious Disease Start: 07-20-2024 End: 07-20-2024 ambulatory Alhaji Head DO Work Phone: Infectious Disease Comment on above: Nipple discharge (Pr imary Dx); Other systemic lupus erythematosus with other organ involvement (HCC); On prednisone therapy; Long-term use of Plaquenil Start: 07-19-2024 Non-patient / Non-visit Gay GALEANO Work Phone: [facility] Work Phone: Start: 07-19-2024 End: 07-19-2024 Admission to same day surgery center Gay GALEANO Work Phone: [facility] Work Phone: Start: 07-19-2024 End: 07-19-2024 ambulatory Gay GALEANO Work Phone: [facility] Work Phone: Start: 07-12-2024 End: 07-12-2024 ambulatory MARKY BARNES Facility:[facility] Start: 07-12-2024 End: 07-12-2024 Patient encounter procedure Marky Barnes PA-C Work Phone: Otolaryngology Comment on above: LPRD (laryngopharyng eal reflux disease); Dry mouth; Current smoker; Abnormal mouth sensation Start: 07-11-2024 End: 07-12-2024 ambulatory Chair 3 Gabbi Work Phone: Hematology/Oncology Comment on above: Elevated sed rate (P rimary Dx); Megaloblastic anemia due to vitamin B12 deficiency; Frequent infections; Hypogammaglobulinemia (HCC); Bilateral leg weakness; Discoid lupus erythematosus Start: 07-10-2024 End: 07-10-[address] [facility] Work Phone: Start: 07-10-2024 End: 07-10-2024 Patient encounter procedure [facility] Work Phone: Start: 07-09-2024 End: 07-10-2024 Telephone encounter Lynne Ni MD Work Phone: Rheumatology Comment on above: Results Start: 06-30-2024 End: 06-30-2024 ambulatory LYNNE NI Facility:[facility] Start: 06-29-2024 End: 06-29-2024 Specialty Pharmacy Aidee Quintanilla [facility] Comment on above: SPP Inflammatory Con ditions - Medication Refill (Benlysta) Start: 06-20-2024 End: 06-23-2024 ambulatory [facility] [place] Comment on above: Iron Infusions Start: 06-20-2024 End: 06-21-2024 E-mail encounter from caregiver [facility] Start: 06-20-2024 End: 06-23-2024 Patient encounter procedure Lynne Ni MD Work Phone: Rheumatology Comment on above: Flair Start: 06-16-2024 End: 06-20-2024 Telephone encounter Vaibhav Carvalho APRN.MANAGER INTELLIGENCE Work Phone: Hematology/Oncology Start: 06-15-2024 End: 06-15-2024 Telephone encounter Oly WARREN Work Phone: [facility] Start: 06-14-2024 End: 06-14-2024 Nursing evaluation of patient and report Breath Test Silverio Cp Nsg Wl Work Phone: [facility] Comment on above: Diarrhea, unspecifie d type (Primary Dx); Abdominal pressure Start: 06-13-2024 End: 06-13-2024 Office outpatient visit 25 minutes Vaibhav John GORE STITCHER.MANAGER INTELLIGENCE Work Phone: Hematology/Oncology Comment on above: 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); Hypogammaglobulinemia (HCC); Positive blood cultures; Malaise and fatigue; SOB (shortness of breath) Start: 06-13-2024 End: 06-13-2024 ambulatory Dionne Driver Art Therapist [employer] Comment on above: Art Therapy Elevated sed rate (P rimary Dx); Megaloblastic anemia due to vitamin B12 deficiency; Hypogammaglobulinemia (HCC); Frequent infections; Bilateral leg weakness; Discoid lupus erythematosus Start: 06-12-2024 End: 06-28-2024 Chart abstracting [facility] Main Work Phone: Neurology Comment on above: CMN Start: 06-12-2024 End: 06-13-2024 Telephone encounter Vaibhav Carvalho APRN.MANAGER INTELLIGENCE Work Phone: Hematology/Oncology Comment on above: Lab Orders Start: 06-06-2024 End: 06-06-2024 Bamboo flowsheet Oly WARREN Work Phone: [facility] Start: 06-06-2024 End: 06-10-2024 Bamboo flowsheet Oly WARREN Work Phone: [facility] Start: 06-06-2024 End: 06-10-2024 Clinisync Result Encounter Oly WARREN Work Phone: [facility] External Department Unsolicited Start: 06-06-2024 End: 06-06-2024 Specialty Pharmacy Aidee Quintanilla [facility] Comment on above: SPP Inflammatory Con ditions - Medication Refill (Benlysta) Start: 06-06-2024 End: 06-06-2024 Patient encounter procedure Oly WARREN Work Phone: [facility] Work Phone: Start: 06-06-2024 End: 06-06-2024 Periodic preventive med est patient 40-64yrs Oly WARREN Work Phone: [facility] Comment on above: Well woman exam with routine gynecological exam; Breast cancer screening by mammogram; Breast nodule Start: 05-19-2024 End: 05-19-2024 ambulatory Chair 3 Gabbi Work Phone: Hematology/Oncology Comment on above: Frequent infections (Primary Dx); Megaloblastic anemia due to vitamin B12 deficiency; Elevated sed rate; Hypogammaglobulinemia (HCC); Bilateral leg weakness; Discoid lupus erythematosus Start: 05-16-2024 End: 05-16-2024 Orders Only Vaibhav Carvalho APRN.CNP Work Phone: Hematology/Oncology Start: 05-15-2024 End: 05-15-2024 Social Work Deisy Jaime GRANITE CHIP TERRAZZO FINISHER Hematology/Oncology Start: 05-12-2024 End: 05-12-2024 Specialty Pharmacy Aidee Quintanilla [facility] Comment on above: SPP Inflammatory Con ditions - Medication Refill (Benlysta) Start: 04-28-2024 End: 04-28-2024 Orders Only Pepper Cotter LPN [facility] Comment on above: Peripheral vascular disease, unspecified (CMS-HCC) (Primary Dx); Cold extremities; Systemic lupus erythematosus (CMS-HCC) Start: 04-26-2024 End: 04-26-2024 ambulatory MANUEL Batista Cristina Facility:[facility] Start: 04-26-2024 End: 04-26-2024 Nursing evaluation of patient and report Ma Nurse Dre Joanna Work Phone: Hematology/Oncology Comment on above: Elevated sed rate (P rimary Dx); Megaloblastic anemia due to vitamin B12 deficiency Start: 04-11-2024 End: 04-11-2024 Specialty Pharmacy Aidee Quintanilla [facility] Comment on above: SPP Inflammatory Con ditions - Medication Refill (Benlysta) Start: 04-10-2024 End: 04-10-2024 Durga Barfield MD Work Phone: [facility] Start: 04-10-2024 End: 04-10-2024 Durga Barfield MD Work Phone: [facility] Start: 04-10-2024 End: 04-10-2024 Telephone encounter Vera Najera MD Work Phone: [facility] Comment on above: Appointment Start: 04-10-2024 End: 04-10-2024 Office outpatient visit 25 minutes Gordo Barfield MD Work Phone: [facility] Comment on above: LPRD (laryngopharyng eal reflux disease) (Primary Dx); Acute otalgia, right Start: 04-10-2024 End: 04-10-2024 ambulatory GORDO BARFIELD Not Available Start: 04-07-2024 End: 04-07-2024 Social Work Deisy Jaime [facility] Hematology/Oncology Start: 04-06-2024 End: 04-06-2024 Clinisync Result Encounter Oly WARREN Work Phone: [facility] External Department Unsolicited Start: 04-06-2024 End: 04-06-2024 Clinisync Result Encounter Oly WARREN Work Phone: [facility] External Department Unsolicited Start: 04-06-2024 End: 04-06-2024 Office outpatient new 30 minutes Hayden Arciniega MD Work Phone: [facility] Comment on above: Systemic lupus [...] 03-30-2024 ambulatory Maico Douglas MD Work Phone: [facility] Start: 03-27-2024 End: 03-28-2024 ambulatory Vera Najera MD Work Phone: Hematology/Oncology Comment on above: 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); High total serum IgM; JOSE RAFAEL (obstructive sleep apnea); Elevated sed rate; Hypogammaglobulinemia (HCC); Frequent infections Start: 03-27-2024 End: 03-28-2024 Telemedicine consultation with patient Vera Najera MD Work Phone: Hematology/Oncology Start: 03-27-2024 End: 03-28-2024 ambulatory MANUEL FERRIS Facility:[facility] Start: 03-23-2024 End: 03-23-2024 ambulatory OLY PLASCENCIA Not Available Start: 03-23-2024 End: 03-23-2024 Office outpatient visit 15 minutes Oly WARREN Work Phone: [facility] Comment on above: Abnormal uterine ble eding (AUB); Menorrhagia with regular cycle Start: 03-23-2024 End: 03-23-2024 Bamboo flowsheet Oly WARREN Work Phone: [facility] Start: 03-23-2024 End: 03-23-2024 Bamboo flowsheet Oly WRAREN Work Phone: [facility] Start: 03-23-2024 End: 03-23-2024 Nursing evaluation of patient and report Hoda Marshall Work Phone: Hematology/Oncology Comment on above: Elevated sed rate (P rimary Dx); Megaloblastic anemia due to vitamin B12 deficiency Start: 03-23-2024 End: 03-23-2024 ambulatory MANUEL FERRIS Facility:[facility] Start: 03-20-2024 End: 03-30-2024 Telephone encounter Akiko Cooper MD Work Phone: [facility] Start: 03-18-2024 End: 03-18-2024 ambulatory MANUEL FERRIS Facility:[facility] Start: 03-18-2024 End: 03-18-2024 Patient encounter [...] both feet; Long-term use of high-risk medication; correction 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; Bilateral hand [...] Not Available Start: 03-16-2024 End: 03-16-2024 ambulatory NITROGLYCERIN SEPARATOR OPERATOR-C Gay Enciso Work Phone: [facility] Work Phone: Start: 03-16-2024 End: 03-16-2024 Patient encounter procedure NITROGLYCERIN SEPARATOR OPERATOR-C Gay Enciso Work Phone: [facility] Gastroenterology Work Phone: Start: 03-13-2024 End: 03-13-2024 Specialty Pharmacy Aidee Quintanilla [facility] Comment on above: SPP Inflammatory Con ditions - Medication Refill (Benlysta - NCA 09/2024) Start: 03-08-2024 End: 03-08-2024 ambulatory EHAB [facility] Start: 03-07-2024 End: 03-08-2024 Chart abstracting [facility] Main Work Phone: Neurology Comment on above: cmn Start: 03-02-2024 End: 03-02-2024 Refill Zita Rogers NITROGLYCERIN SEPARATOR OPERATOR Work Phone: [facility] 210 Comment on above: Lumbosacral radiculo tray at L5; Degenerative disc disease, lumbar; Cervical radiculopathy at C5 Start: 02-28-2024 End: 02-28-2024 ambulatory NITROGLYCERIN SEPARATOR OPERATOR-C Gay Enciso Work Phone: [facility] Work Phone: Start: 02-28-2024 End: 02-28-2024 Patient encounter procedure NITROGLYCERIN SEPARATOR OPERATOR-C Gay Enciso Work Phone: [facility] Work Phone: Start: 02-22-2024 End: 02-22-2024 Telephone encounter Oly CHO Work Phone: [facility] Comment on above: Frit Mixer - O ther (Eds scheduling) Start: 02-21-2024 End: 02-21-2024 Nursing evaluation of patient and report Ma Nurse Dre Marshall Work Phone: Hematology/Oncology Comment on above: Elevated sed rate (P rimary Dx); Megaloblastic anemia due to vitamin B12 deficiency Start: 02-21-2024 End: 02-21-2024 ambulatory MANUEL FERRIS Facility:[facility] Start: 02-18-2024 End: 02-18-2024 Telephone encounter Lynne Ni MD Work Phone: Rheumatology Start: 02-16-2024 Non-patient / Non-visit NITROGLYCERIN SEPARATOR OPERATOR-C Abiola Enciso Work Phone: [facility] Work Phone: Start: 02-16-2024 End: 02-16-2024 Admission to same day surgery center NITROGLYCERIN SEPARATOR OPERATOR-C Gay Enciso Work Phone: [facility] Work Phone: Start: 02-16-2024 End: 02-16-2024 ambulatory NITROGLYCERIN SEPARATOR OPERATOR-C Gay Enciso Work Phone: [facility] Work Phone: Start: 02-15-2024 End: 02-15-2024 Telephone encounter Lexus Heck APRN.CNP Work Phone: Neurology Comment on above: Orders (PAP RX.) Start: 02-14-2024 End: 02-14-2024 Follow-up encounter Aidee Quintanilla [facility] Comment on above: SPP Inflammatory Con ditions - Follow-up (Benlysta); Insurance Authorization ([place] Renew[place] Submitted) Start: 02-14-2024 End: 02-14-2024 ambulatory Lexus Heck APRN.CNP Work Phone: Neurology Comment on above: JOSE RAFAEL (obstructive sle ep apnea) (Primary Dx); Somnolence, daytime SPP Inflammatory Con ditions - Medication Refill (Benlysta - NCA 09/2024) Start: 02-14-2024 End: 02-14-2024 Telemedicine consultation with patient Lexus Heck APRN.CNP Work Phone: Neurology Start: 02-09-2024 End: 02-09-2024 Bamboo flowsheet Zita Lynne Polo NITROGLYCERIN SEPARATOR OPERATOR Work Phone: [facility] Start: 02-09-2024 End: 02-09-2024 Bamboo flowsheet Zita Lynne Blandongodwin NITROGLYCERIN SEPARATOR OPERATOR Work Phone: [facility] Start: 02-09-2024 End: 02-09-2024 ambulatory ZITA Lynne POLO Not Available Start: 02-09-2024 End: 02-09-2024 Phys/qhp telephone evaluation 21-30 min Zita Rogers NITROGLYCERIN SEPARATOR OPERATOR Work Phone: [facility] NE[facility] 210 Comment on above: Lumbosacral radiculo tray at L5 (Primary Dx); Degenerative disc disease, lumbar; Cervical radiculopathy at C5 Start: 02-07-2024 End: 02-07-2024 Refill Zita Rogers NITROGLYCERIN SEPARATOR OPERATOR Work Phone: [facility] NE[facility] 210 Comment on above: Autoimmune disease ( CMS/HCC); Fibromyalgia; Numbness Start: 01-28-2024 End: 01-31-2024 ambulatory Alhaji Head DO Work Phone: [facility] Work Phone: Comment on above: Blood work Start: 01-28-2024 End: 01-28-2024 Patient encounter procedure [facility] [place] Work Phone: Start: 01-27-2024 End: 01-27-2024 Telemedicine [...] B12 deficiency Start: 01-25-2024 End: 01-25-2024 [facility] Start: 01-20-2024 End: 01-20-2024 Refill Kade Richardson MD Work Phone: [facility] 210 Comment on above: Degenerative disc di sease, lumbar (Primary Dx); Lumbosacral radiculopathy at L5 Start: 01-18-2024 End: 01-19-2024 Specialty Pharmacy Aidee Quintanilla [facility] Comment [...] apnea syndrome Start: 12-27-2023 End: 12-27-2023 [facility] Start: 12-24-2023 End: 12-24-2023 ambulatory LOIS [facility] Amb[facility] Start: 12-21-2023 End: 12-21-2023 ambulatory ZITA ROGERS Not Available Start: 12-16-2023 End: 12-16-[address] [facility] Work Phone: Start: 12-16-2023 End: 12-16-2023 Patient encounter procedure [facility] Work Phone: Start: 12-15-2023 End: 12-15-2023 ambulatory ZITA Lynne NARENAPOLONIAGodwin Not Available Start: 12-13-2023 Specialty Pharmacy A[facility]e coreas [facility] Comment on above: SPP Inflammatory Con ditions - Medication Refill (Benlysta - NCA 09/2024) Start: 12-04-2023 End: 12-04-2023 ambulatory DIGNA PRICE Not Available Start: 11-29-2023 End: 11-29-2023 ambulatory MANUEL FERRIS Facility:[facility] Start: 11-29-2023 End: 11-29-2023 Nursing evaluation of patient and report Ma Nurse Dre Marshall Work Phone: Hematology/Oncology Comment on above: Elevated sed rate (P rimary Dx); Megaloblastic anemia due to vitamin B12 deficiency Start: 11-25-2023 ambulatory Vera nelson MD Work Phone: Hematology/Oncology Comment on above: Folic acid Start: 11-24-2023 End: 11-24-2023 ambulatory MANUEL FERRIS Facility:[facility] Start: 11-15-2023 End: 11-15-2023 Specialty Pharmacy Aidee Quintanilla RPh [facility] Comment on above: SPP Inflammatory Con ditions - Medication Refill (Benlysta - NCA 09/2024) Start: 11-11-2023 Refill Lynne Ni MD Work Phone: Rheumatology Comment on above: Refill Request Start: 11-08-2023 End: 11-08-2023 ambulatory ZITA Lynne POLO Not Available Start: 11-04-2023 End: 11-04-[address] [facility] Work Phone: Start: 11-04-2023 End: 11-04-2023 Patient encounter procedure [facility] Infectious Disease Work Phone: Start: 10-27-2023 End: 10-27-2023 Nursing evaluation of patient and report Hoda Marshall Work Phone: Hematology/Oncology Comment on above: Elevated sed rate (P rimary Dx); Megaloblastic anemia due to vitamin B12 deficiency Start: 10-27-2023 End: 10-28-2023 ambulatory Lynne Ni MD Work Phone: Rheumatology Start: 10-27-2023 Patient encounter procedure Lynne Ni MD Work Phone: Rheumatology Comment on above: Cdiff Start: 10-21-2023 End: 10-21-2023 ambulatory BERNABE ENGLISH Not Available Start: 10-20-2023 End: 10-20-2023 [facility] Work Phone: Start: 10-20-2023 End: 10-20-2023 Patient encounter procedure [facility] Work Phone: Start: 10-12-2023 Specialty Pharmacy Aidee coreas [facility] Comment on above: SPP Inflammatory Con ditions - Medication Refill (Benlysta) Start: 10-05-2023 End: 10-05-2023 ambulatory LYNNE NI Facility:[facility] Start: 10-05-2023 End: 10-05-2023 Patient encounter [...] of Plaquenil; Long-term use of high-risk medication; correction 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; Raynaud's disease [...] B12 deficiency Start: 09-30-2023 End: 09-30-2023 ambulatory MANUEL FERRIS Facility:[facility] Start: 09-22-2023 End: 09-22-2023 Patient encounter procedure [facility] G[facility] Work Phone: Start: 09-13-2023 End: 09-13-2023 Specialty Pharmacy Aidee Quintanilla [facility] Comment [...] with patient Vera Najera MD Work Phone: [place] Start: 09-04-2023 Telephone encounter Lynne shaw MD Work Phone: Rheumatology Comment on above: Results Start: 08-31-2023 End: 08-31-2023 Nursing evaluation of patient and report Hoda Marshall Work Phone: Hematology/Oncology Comment on above: 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); Elevated sed rate Start: 08-31-2023 End: 08-31-2023 ambulatory MANUEL FERRIS Facility:[facility] Start: 08-12-2023 Specialty Pharmacy Aidee Quintanilla RP h [facility] Comment on above: SPP Inflammatory Con ditions - Medication Refill (Benlysta ) Start: 08-10-2023 End: 08-10-2023 ambulatory GORDO BARFIELD Not Available Start: 08-05-2023 End: 08-05-2023 ambulatory MANUEL FERRIS Facility:[facility] Start: 08-05-2023 End: 08-05-2023 Nursing evaluation of patient and report Hoda Marshall Work Phone: Hematology/Oncology Comment on above: 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); Elevated sed rate Start: 07-28-2023 Non-patient / Non-visit [facility] G[facility]enterology Work Phone: Start: 07-13-2023 ambulatory Aidee Ballesterosley [facility] Start: 07-13-2023 End: 07-13-2023 Nursing evaluation of patient and report Hoda Marshall Work Phone: Hematology/Oncology Comment on above: 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); Elevated sed rate SPP Inflammatory Con ditions - Medication Refill (Benlysta ) Start: 07-13-2023 End: 07-13-2023 Office outpatient new 45 minutes Lois Holm MD Work Phone: [facility] Comment on above: Shortness of breath (Primary Dx); Paroxysmal supraventricular tachycardia; PAC (premature atrial contraction); Current smoker; Systemic lupus erythematosus, unspecified SLE type, unspecified organ involvement status (CMS/HCC); Palpitations; Obstructive sleep apnea syndrome; Morbid obesity (CMS/HCC); Bilateral lower extremity edema Start: 07-06-2023 End: 07-06-2023 Office outpatient visit 25 minutes Kaed Richardson MD Work Phone: [facility] 210 Comment on above: Autoimmune disease ( CMS/HCC) (Primary Dx); Autonomic dysfunction; Lumbosacral radiculopathy; Bilateral leg weakness Start: 07-05-2023 Chart abstracting Kade ramirez MD Work Phone: [facility] 210 Start: 06-09-2023 End: 06-09-2023 Office outpatient new 60 minutes Michelle Jasmine GORE STITCHER-MANAGER INTELLIGENCE Work Phone: [facility] Comment on above: Irregular heart rate (Primary Dx); Essential hypertension; Autonomic dysfunction; Obstructive sleep apnea syndrome; Primary hypertension Start: 05-26-2023 End: 05-26-2023 Office outpatient visit 40 minutes Christie Phan MD Work Phone: Integrated [facility] Comment on above: Obesity, Class III, BMI >= 40 (Primary Dx); Other chronic pain Start: 04-26-2023 End: 04-26-2023 Office outpatient visit [...] [place] Hematology/Oncology Comment on above: Results Start: 04-16-2023 End: 04-16-2023 Nursing evaluation of [...] deficiency; Elevated sed rate; Bilateral wrist pain; 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; Steroid-induced osteoporosis; [...] with patient Lynne Ni MD Work Phone: [facility] Start: 01-28-2023 Refill Christie Hays Work [...] Misty Nelson MD Work Phone: [facility] Start: 12-24-2022 Refill Christie Hays Work Phone: Integrated Medicine Comment on above: Refill Request Start: 12-18-2022 Telephone encounter Lidia Argueta RN Work Phone: Hematology/Oncology Comment on above: Care Coordination (a ppointment) Start: 12-17-2022 End: 12-18-2022 ambulatory Rebekah Rojas APRN.MANAGER INTELLIGENCE Work Phone: Hematology/Oncology Comment on above: 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); Chronic fatigue and malaise Start: 12-17-2022 End: 12-18-2022 Telemedicine consultation with patient Rebekah Rojas APRN.MANAGER INTELLIGENCE Work Phone: [facility] Start: 12-16-2022 Telephone encounter [...] Nursing evaluation of patient and report Hoda Nurse Dre Marshall Work Phone: Hematology/Oncology Comment [...] Nursing evaluation of patient and report Hoda Nurse Dre Marshall Work Phone: Hematology/Oncology Comment on above: 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); Elevated sed rate Start: 09-10-2022 End: 09-10-[address] MANUEL FERRIS . Facility:[facility] Start: 09-08-2022 Telephone encounter Angelia king [facility] Home Delivery - Compliance Comment [...] Start: 08-27-2022 End: 08-27-2022 ambulatory Rebekah Rojas APRN.MANAGER INTELLIGENCE Work Phone: Hematology/Oncology Comment on above: 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); Elevated sed rate; High total serum IgM; Chronic fatigue and malaise; JOSE RAFALE (obstructive sleep apnea) Start: 08-27-2022 End: 08-27-2022 Patient encounter procedure Rebekah Rojas APRN.MANAGER INTELLIGENCE Work Phone: [facility] Start: 08-19-2022 Telephone encounter Lynne shaw MD Work Phone: Rheumatology Comment on above: Results Start: 08-15-2022 ambulatory Lynne Ni MD Work Phone: Rheumatology Comment on above: update Start: 08-10-2022 Refill Christie Hays Work Phone: [facility] Comment on above: Refill Request Start: 07-27-2022 End: 07-27-2022 ambulatory Lexus Heck APRN.MANAGER INTELLIGENCE Work Phone: Neurology Comment on above: JOSE RAFAEL (obstructive sle ep apnea) (Primary Dx) Start: 07-27-2022 End: 07-27-2022 Telemedicine consultation with patient Lexus Heck APRN.MANAGER INTELLIGENCE Work Phone: [facility] Start: 07-24-2022 ambulatory Lynne Ni MD Work Phone: Rheumatology Comment on above: Blood work Start: 07-24-2022 Telephone encounter Vera hooker MD Work Phone: Hematology/Oncology Comment on above: Orders (Lab Orders E xpire Before Appointment) Start: 07-21-2022 ambulatory Lawanda Miranda MD Work Phone: [facility] Start: 07-21-2022 Patient encounter procedure [...] DR MANUEL FERRIS . Facility: Start: 03-31-2022 Refarabella Hays Work Phone: [facility] [...] . Facility:[facility] Start: 03-18-2022 End: 03-18-2022 ambulatory Vera Najera MD Work Phone: Hematology/Oncology Comment on above: 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); High total serum IgM A1c Start: 03-18-2022 E-mail encounter fro m caregiver Christie Phan MD Work Phone: [facility] Start: 03-18-2022 End: 03-18-2022 Patient encounter procedure Vera Najera MD Work Phone: [place] Start: 03-12-2022 End: 03-13-[address] MANUEL FERRIS . Facility:[facility] Start: 03-10-2022 End: 03-10-2022 ambulatory Alhaji Kelseyjuancarlos LIVE Work Phone: Infectious Disease Comment on above: results Raised level of immu noglobulins (Primary Dx); Wound healing, delayed; Current smoker Start: 03-10-2022 E-mail encounter fro m caregiver Alhaji Head Work Phone: [facility] Start: 03-10-2022 End: 03-10-2022 Telemedicine consultation with patient Misty Nelson MD Work Phone: [facility] Start: 03-09-2022 End: 03-10-2022 ambulatory GAY ENCISO Facility:[facility] Start: 03-09-2022 End: 03-09-2022 Office consultation new/estab patient 80 min Christie Phan MD Work Phone: [facility] Comment on above: Obesity, Class II, B RI 35-39.9 (Primary Dx); Somnolence, daytime; Chronic fatigue [...] encounter procedure Vera Najera MD Work Phone: [place] Start: 03-02-2022 Chart abstracting Vera waterman MD [...] with patient Alhaji Head DO Work Phone: [facility] Start: 02-14-2022 End: 02-15-[address] MANUEL FERRIS . Facility:[facility] Start: 11-26-2021 End: 11-26-2021 ambulatory Mirela Kelsey Other [employer] Other Start: 11-26-2021 Office outpatient vi sit [...] 10-15-2021 End: 10-15-2021 ambulatory Mirela Kelsey Other [employer] Other Start: 10-15-2021 Office outpatient vi sit 25 minutes Mirela LOPEZ Infectious Disease Start: 10-03-2021 End: [address] MIRELA KELSEY Facility:[facility] Start: 09-18-2021 End: 09-18-2021 ambulatory Mirela Kelsey Other [employer] Other Start: 09-18-2021 Telephone encounter Mirela Kelsey [facility] Disease Start: 09-11-2021 End: 09-11-2021 ambulatory Mirela Kelsey Other [employer] Other Start: 09-11-2021 Office outpatient ne w 45 minutes Mirela Kelsey [facility] Start: 10-07-2020 End: 10-08-2020 ambulatory AMEER LEYDI [facility] Start: 10-07-2020 End: 10-07-2020 Subsequent hospital visit by physician [employer] [employer] Rm A STVZ [employer] Comment on above: Arrived Start: 09-14-2018 End: 09-17-2018 Patient encounter procedure VICTOR MANUEL GUZMAN [facility] Procedures Date Procedure Procedure Detail Performing Clinician Start: 07-19-2024 Injection of local anesthetic into sacroiliac joint Gay Enciso NITROGLYCERIN SEPARATOR OPERATOR-C Work Phone: Start: 06-13-2024 Blood count complete auto&auto difrntl wbc Vaibhav Carvalho GORE STITCHERCHELA Work Phone: Start: 06-06-2024 IGP,APTIMA HPV,AGE GDLN Oly WARREN Work Phone: Start: 06-06-2024 Microscopic observat ion [Identifier] in Cervix by Cyto stain Bernabe English MD Work Phone: Start: 05-19-2024 Blood count complete auto&auto difrntl wbc Vera Najera MD Work Phone: Start: 04-07-2024 Mammography Bernabe gillis MD Work Phone: Start: 04-06-2024 ALL CBC [...] QUANT HCG Oly WARREN Work Phone: Start: 04-06-2024 Mammography Lois joy MD Work Phone: Start: 03-23-2024 End: 03-23-2024 Urnls dip stick/tablet rgnt non-auto w/o micrscp Oly WARREN Work Phone: Start: 02-16-2024 Injection of local anesthetic into sacroiliac joint NITROGLYCERIN SEPARATOR OPERATOR-C Gay Enciso Work Phone: Start: 07-13-2023 Ecg routine ecg w/le ast 12 lds w/i&r Lois Holm MD Work Phone: Start: 06-09-2023 Ecg routine ecg w/le ast 12 lds w/i&r Michelle Surya Mitali GORE STITCHER-MANAGER INTELLIGENCE Work Phone: Start: 09-10-2022 Microscopic observat ion [Identifier] in Cervix by Cyto stain Luan Valdivia DO Work Phone: Start: 09-10-2022 Cytp cerv/vag auto t hin layer prep mnl screen Luan Valdivia [employer] Work Phone: Start: 10-07-2020 End: 10-07-2020 Cardiac catheterization Jonas Black MD Work Phone: Start: 10-07-2020 Chloride [Moles/volu me] in Serum or Plasma Jonas Black MD Work Phone: Start: 10-07-2020 CREATININE W/GFR POI NT OF CARE Jonas Black MD Work Phone: Start: 10-07-2020 End: 10-07-2020 Gluc bld gluc mntr dev cleared fda spec home use Jonas Black MD Work Phone: Start: 10-07-2020 Potassium [Moles/vol ume] in Serum or Plasma Jonas Black MD Work Phone: Start: 10-07-2020 Sodium [Moles/volume ] in Serum or Plasma Jonas Black MD Work Phone: Start: 10-07-2020 Urine test visual color cmprsn omar Black MD Work Phone: Start: 09-14-2018 Radex foot complete minimum 3 views VICTOR MANUEL GUZMAN Plan of Treatment Date Care Activity Detail Author Start: 09-11-2027 Screening for malignant neoplasm of cervix [facility] Start: 06-06-2027 Screening for malignant neoplasm of cervix [facility] Start: 09-10-2025 Screening for malignant neoplasm of cervix Pap Smear [facility] Start: 07-26-2025 End: 07-26-2025 Patient encounter procedure 07/26/2025 11:00 AM EST Office Visit [facility] [address] [place] [address] Lois Holm MD [address] [place] [address] [facility] Start: 07-25-2025 End: 07-25-2025 Patient encounter procedure 07/25/2025 11:00 AM EST Office Visit [facility] [address] [place] [id number] Bernabe English MD [address] [place] [address] [facility] Start: 04-07-2025 Screening for malignant neoplasm of breast Mammogram [facility] Start: 04-06-2025 Adult BMI Screening Adult BMI Screening [facility] Start: 04-06-2025 Screening for malignant neoplasm of breast Mammogram [facility] Start: 04-06-2025 Tobacco Screening Tobacco Screening [facility] Start: 03-17-2025 Diabetes mellitus screening Diabetes Screening [facility] Start: 11-20-2024 Influenza vaccination Influenza Vaccine (#1) [facility] Comment on above: Postponed from 01/23/2024 (Patient Refus ed) Start: 10-06-2024 End: 07-09-2025 25-hydroxyvitamin D3 [Mass/volume] in Serum or Plasma VITAMIN D 25 HYDROXY Lab Routine Vitamin D deficiency Expected: 10/06/2024 (Approximate), Expires: 07/09/2025 [facility] Comment on above: Expected: 10/06/2024 (Approximate), Expi res: 07/09/2025 Start: 10-06-2024 End: 07-09-2025 C reactive protein [Mass/volume] in Serum or Plasma C-REACTIVE PROTEIN Lab Routine Elevated sed rate Elevated C-reactive protein (CRP) Expected: 10/06/2024 (Approximate), Expires: 07/09/2025 [facility] Comment on above: Expected: 10/06/2024 (Approximate), Expi res: 07/09/2025 Start: 10-06-2024 End: 07-09-2025 CBC panel - Blood by Automated count COMPLETE BLOOD COUNT Lab Routine Anemia of chronic disease Expected: 10/06/2024 (Approximate), Expires: 07/09/2025 [facility] Comment on above: Expected: 10/06/2024 (Approximate), Expi res: 07/09/2025 Start: 10-06-2024 End: 07-09-2025 Comprehensive metabolic 2000 panel - Serum or Plasma COMPREHENSIVE METABOLIC PANEL Lab Routine Elevated LFTs Expected: 10/06/2024 (Approximate), Expires: 07/09/2025 [facility] Work Phone: Comment on above: Expected: 10/06/2024 (Approximate), Expi res: 07/09/2025 Start: 10-06-2024 End: 07-09-2025 Erythrocyte sedimentation rate SEDIMENTATION RATE, WESTERGREN Lab Routine Elevated sed rate Elevated C-reactive protein (CRP) Expected: 10/06/2024 (Approximate), Expires: 07/09/2025 [facility] Comment on above: Expected: 10/06/2024 (Approximate), Expi res: 07/09/2025 Start: 09-19-2024 End: 09-19-2024 Patient encounter procedure [facility] Comment on above: hEDS with concerns and wants CTD evaluat ion Start: 09-05-2024 End: 09-05-2024 Follow-up encounter Hematology/Oncology Comment on above: 3 month follow up IVIG for hypogammaglob ulinemia + b12 Start: 09-05-2024 End: 09-05-2024 Patient encounter procedure 09/05/2024 8:45 AM EDT Office Visit [facility] [address] [address] 3 month follow up IVIG for hypogammaglobulinemia + b12 [facility] Comment on above: 3 month follow up IVIG for hypogammaglob ulinemia + b12 Start: 08-22-2024 End: 08-22-2024 Patient encounter procedure 08/22/2024 1:30 PM EDT [facility] [address] [place] [address] Raj Kitchen MD [address] [place] [address] [facility] Start: 08-17-2024 End: 08-17-2024 Specialty Pharmacy 08/17/2024 10:00 AM EDT Specialty Pharmacy [facility] [address] [place], [place] [id number] [place] [address] Pharmacist, Specialtygroup [address] [place] [address] [place] [address] REFILL- Benlysta- PAx 02/11/25 [facility] Comment on above: REFILL- Benlysta- PAx 02/11/25 Start: 08-15-2024 End: 08-15-2024 Patient encounter procedure 08/15/2024 10:20 AM EDT Office Visit [facility] [address] [facility] [address] [place] [address] Gordo Barfield MD [address] [facility] [address] [place] [address] [facility] Start: 08-08-2024 End: 08-08-2024 ambulatory 08/08/2024 9:30 AM EDT Infusion Center Hematology/Oncology [address] [facility] [facility] [address] [address] IVIG for hypogammaglobulinemia + b12 Hematology/Oncology Comment on above: IVIG for hypogammaglobulinemia + b12 Start: 08-01-2024 End: 08-01-2024 Patient encounter procedure 08/01/2024 10:30 AM EDT Office Visit [facility] [address] [place] [phone] Bernabe English MD [address] [place] [address] [facility] Start: 07-25-2024 End: 07-25-2024 Specialty Pharmacy [facility] Comment on above: REFILL- Benlysta- PAx 02/11/25- Arrived Start: 07-20-2024 End: 07-20-2024 ambulatory 07/20/2024 11:30 AM EST [facility] Infectious Disease [address] [place] [address] Alhaji Head DO [address] [place], [place] [id number] Positive blood cultures [R78.81] Infectious Disease Comment on above: Positive blood cultures [R78.81] Start: 07-20-2024 End: 07-20-2024 Patient encounter procedure 07/20/2024 11:30 AM EST Office Visit Infectious Disease [address] [place] [address] Alhaji Head DO [address] [place] [address] Positive blood cultures [R78.81] Infectious Disease Comment on above: Positive blood cultures [R78.81] Start: 07-19-2024 [facility] Start: 07-13-2024 End: 07-13-2024 Patient encounter procedure 07/13/2024 9:20 AM EST Office Visit [address] [facility] [address] [place] [phone] Lois Holm MD [address] [facility] [place] [address] [facility] Start: 07-12-2024 End: 07-12-2024 Patient encounter procedure 07/12/2024 2:40 PM EST Office Visit Otolaryngology [address] [place] [address] Mraky Barnes PA-C [address] [place], [place] [id number] Recurrent Thrush. Otolaryngology Comment on above: Recurrent Thrush. Start: 07-11-2024 End: 07-11-2024 ambulatory 07/11/2024 9:30 AM EST Infusion Center Hematology/Oncology [address] [facility] [place] [address] IVIG for hypogammaglobulinemia + b12 Hematology/Oncology Comment on above: IVIG for hypogammaglobulinemia + b12 Start: 07-03-2024 End: 04-02-2025 25-hydroxyvitamin D3 [Mass/volume] in Serum or Plasma VITAMIN D 25 HYDROXY Lab Routine Vitamin D deficiency Expected: 07/03/2024 (Approximate), Expires: 04/02/2025 [facility] Comment on above: Expected: 07/03/2024 (Approximate), Expi res: 04/02/2025 Start: 07-03-2024 End: 04-02-2025 C reactive protein [Mass/volume] in Serum or Plasma C-REACTIVE PROTEIN Lab Routine Elevated sed rate Elevated C-reactive protein (CRP) Expected: 07/03/2024 (Approximate), Expires: 04/02/2025 [facility] Comment on above: Expected: 07/03/2024 (Approximate), Expi res: 04/02/2025 Start: 07-03-2024 End: 04-02-2025 CBC panel - Blood by Automated count COMPLETE BLOOD COUNT Lab Routine Anemia of chronic disease Expected: 07/03/2024 (Approximate), Expires: 04/02/2025 [facility] Comment on above: Expected: 07/03/2024 (Approximate), Expi res: 04/02/2025 Start: 07-03-2024 End: 04-02-2025 Comprehensive metabolic 2000 panel - Serum or Plasma COMPREHENSIVE METABOLIC PANEL Lab Routine Elevated LFTs Expected: 07/03/2024 (Approximate), Expires: 04/02/2025 [facility] Work Phone: Comment on above: Expected: 07/03/2024 (Approximate), Expi res: 04/02/2025 Start: 07-03-2024 End: 04-02-2025 Erythrocyte sedimentation rate SEDIMENTATION RATE, WESTERGREN Lab Routine Elevated sed rate Elevated C-reactive protein (CRP) Expected: 07/03/2024 (Approximate), Expires: 04/02/2025 [facility] Comment on above: Expected: 07/03/2024 (Approximate), Expi res: 04/02/2025 Start: 06-29-2024 End: 06-29-2024 Specialty Pharmacy 06/29/2024 10:00 AM EST Specialty Pharmacy [facility] [address] [place] [address] [id number] [place] [address] Pharmacist, Specialty[address] [place], [place] [id number] REFILL- Benlysta- PAx 02/11/25 [facility] Comment on above: REFILL- Benlysta- PAx 02/11/25 Start: 06-26-2024 End: 06-26-2024 Nursing evaluation of patient and report 06/26/2024 9:45 AM EST Nurse Visit Hematology/Oncology [address] [facility] [place] [address] Hoda Marshall Nurse Dre [address] [facility] [place] [address] B12 Hematology/Oncology Comment on above: B12 Start: 06-26-2024 End: 06-26-2024 ambulatory Hematology/Oncology Comment on above: RTC 3 month IVIG for hypogammagl obulinemia Start: 06-26-2024 End: 06-26-2024 Patient encounter procedure 06/26/2024 8:45 AM EST Office Visit [facility] [address] [facility] [place] [address] labs [facility] Comment on above: labs Start: 06-14-2024 End: 06-14-2024 Nursing evaluation of patient and report [facility] Comment on above: Abdominal Pain/Diarrhea/Bandar S MANAGER INTELLIGENCE order ed/Patient has prep thru MyChart//cc SIBO - Abdominal Gus n/Diarrhea/Bandar S MANAGER INTELLIGENCE ordered/Patient has prep thru MyChart//cc Order in Scanned Documents Start: 06-13-2024 End: 09-12-2024 Cobalamin (Vitamin B12) [Mass/volume] in Serum or Plasma [facility] Comment on above: Expected: 06/13/2024, Expires: Start: 06-13-2024 End: 09-12-2024 Ferritin [Mass/volume] in Serum or Plasma [facility] Work Phone: Comment on above: Expected: 06/13/2024, Expires: Start: 06-13-2024 End: 09-12-2024 Folate [Mass/volume] in Serum or Plasma [facility] Comment on above: Expected: 06/13/2024, Expires: Start: 06-13-2024 End: 09-12-2024 Iron and Iron binding capacity panel - Serum or Plasma [facility] Comment on above: Expected: 06/13/2024, Expires: Start: 06-13-2024 End: 06-13-2024 Nursing evaluation of patient and report 06/13/2024 9:45 AM EST Nurse Visit Hematology/Oncology [address] [facility] [place] [address] Joanna Mo Nurse Dre [address] [facility] [address] B12 Hematology/Oncology Comment on above: B12 Start: 06-13-2024 End: 06-13-2024 ambulatory Hematology/Oncology Comment on above: RTC 3 month IVIG for hypogammagl obulinemia Start: 06-13-2024 End: 06-13-2024 Patient encounter procedure 06/13/2024 8:45 AM EST Office Visit [facility] [address] [facility] [place] [address] labs [facility] Comment on above: labs Start: 06-06-2024 End: 08-04-2025 MG Breast - bilateral Screening Bilateral screening mammogram Imaging Routine Breast cancer screening by mammogram Expected: 06/06/2024 (Approximate), Expires: 08/04/2025 [facility] Work Phone: Comment on above: Expected: 06/06/2024 (Approximate), Expi res: 08/04/2025 Start: 06-06-2024 End: 08-04-2025 MG Breast - left Diagnostic Left diagnostic mammogram Imaging Routine Breast nodule Expected: 06/06/2024 (Approximate), Expires: 08/04/2025 [facility] Comment on above: Expected: 06/06/2024 (Approximate), Expi res: 08/04/2025 Start: 06-06-2024 End: 06-06-2024 Patient encounter procedure [facility] Comment on above: REFILL- Benlysta- PAx 02/11/25 Start: 05-29-2024 End: 05-29-2024 Nursing evaluation of patient and report 05/29/2024 9:30 AM EST Nurse Visit Hematology/Oncology [address] [facility] [address] [facility] [address] [place] [address] Hoda Marshall Nurse Dre [address] [facility] [place] [address] B12 Hematology/Oncology Comment on above: B12 Start: 05-19-2024 End: 05-19-2024 ambulatory 05/19/2024 9:30 AM EST Infusion Center Hematology/Oncology [address] [facility] [place] [address] IVIG for hypogammaglobulinemia Hematology/Oncology Comment on above: IVIG for hypogammaglobulinemia Start: 05-12-2024 End: 05-12-2024 Specialty Pharmacy 05/12/2024 10:00 AM EST Specialty Pharmacy [facility] [id number] [place] [address] Pharmacist, [facility] [address] [place] [address] [place] [address] REFILL- Benlysta- PAx 02/11/25 [facility] Comment on above: REFILL- Benlysta- PAx 02/11/25 Start: 04-28-2024 End: 04-28-2025 US.doppler Extremity arteries - bilateral for physiologic artery study Vas art doppler lwr bilat mult lev/PVR Vascular Ultrasound Routine Peripheral vascular disease, unspecified ([facility]) Cold extremities Systemic lupus erythematosus ([facility]) Expected: 04/28/2024, Expires: 04/28/2025 [facility] Work Phone: Comment on above: Expected: 04/28/2024, Expires: Start: 04-24-2024 End: 04-24-2024 Nursing evaluation of patient and report 04/24/2024 9:30 AM EST Nurse Visit Hematology/Oncology [address] [facility] [place] [address] [facility] Mo Nurse Dre [address] [facility] [place] [address] B12 Hematology/Oncology Comment on above: B12 Start: 04-18-2024 End: 04-18-2024 Nursing evaluation of patient and report [facility] Comment on above: refer Sibo Start: 04-14-2024 End: 04-14-2024 ambulatory Hematology/Oncology Comment on above: IVIG for hypogammaglobulinemia REFILL- Benlysta- PA x 02/11/25 Start: 04-11-2024 End: 04-11-2024 Specialty Pharmacy [facility] Comment on above: REFILL- Benlysta- PAx 02/11/25- [facility] REFILL- Benlysta- PA x 02/11/25 Start: 04-06-2024 End: 2025 US.doppler Extremity arteries - bilateral for physiologic artery study Vas art doppler lwr bilat mult lev/PVR Vascular Ultrasound Routine Cold extremities Pain of lower extremity, unspecified laterality Systemic lupus erythematosus ([facility]) Expected: 04/06/2024, Expires: 2025 [facility] Work Phone: Comment on above: Expected: 04/06/2024, Expires: Start: 03-28-2024 End: 03-28-2024 ambulatory 03/28/2024 1:00 PM [facility] Hematology/Oncology [address] [facility] [place] [address] Vera Najera MD [address] [facility] [place] [address] 13 wk virtual after labs last week Hematology/Oncology Comment on above: 13 wk virtual after labs last week Start: 03-23-2024 End: 03-23-2025 aPTT in Blood by Coagulation assay APTT Lab Routine Menorrhagia with regular cycle Expected: 03/23/2024 (Approximate), Expires: 03/23/2025 [facility] Comment on above: Expected: 03/23/2024 (Approximate), Expi res: 03/23/2025 Start: 03-23-2024 End: 03-23-2025 US for US PELVIS-TRANSVAG IF INDICATED Imaging Routine Menorrhagia with regular cycle Expected: 03/23/2024 (Approximate), Expires: 03/23/2025 [facility] Comment on above: Expected: 03/23/2024 (Approximate), Expi res: 03/23/2025 Start: 03-21-2024 End: 03-21-2024 Nursing evaluation of patient and report 03/21/2024 11:45 AM EDT Nurse Visit Hematology/Oncology [address] [facility] [place] [address] Hoda Marshall Nurse Dre [address] [facility] [place] [address] b12 Hematology/Oncology Comment on above: b12 Start: 03-21-2024 End: 03-21-2024 Patient encounter procedure 03/21/2024 11:15 AM EDT Office Visit [facility] [address] [facility] [place] [address] LAb [facility] Comment on above: LAb Start: 03-20-2024 End: 12-29-2024 25-hydroxyvitamin D3 [Mass/volume] in Serum or Plasma VITAMIN D 25 HYDROXY Lab Routine Vitamin D deficiency Expected: 03/20/2024 (Approximate), Expires: 12/29/2024 [facility] Comment on above: Expected: 03/20/2024 (Approximate), Expi res: 12/29/2024 Start: 03-20-2024 End: 12-29-2024 BLOOD TB SCREEN BLOOD TB SCREEN Lab Routine Screening-pulmonary TB Expected: 03/20/2024 (Approximate), Expires: 12/29/2024 [facility] Comment on above: Expected: 03/20/2024 (Approximate), Expi res: 12/29/2024 Start: 03-20-2024 End: 12-29-2024 C reactive protein [Mass/volume] in Serum or Plasma C-REACTIVE PROTEIN Lab Routine Elevated C-reactive protein (CRP) Elevated sed rate Expected: 03/20/2024 (Approximate), Expires: 12/29/2024 [facility] Comment on above: Expected: 03/20/2024 (Approximate), Expi res: 12/29/2024 Start: 03-20-2024 End: 06-19-2024 CBC W Auto Differential panel - Blood COMPLETE BLOOD COUNT AND DIFFERENTIAL Lab Routine Megaloblastic anemia due to vitamin B12 deficiency Elevated sed rate Obstructive sleep apnea syndrome Expected: 03/20/2024 (Approximate), Expires: 06/19/2024 [facility] Comment on above: Expected: 03/20/2024 (Approximate), Expi res: 06/19/2024 Start: 03-20-2024 End: 06-19-2024 Cobalamin (Vitamin B12) [Mass/volume] in Serum or Plasma VITAMIN B12 Lab Routine Megaloblastic anemia due to vitamin B12 deficiency Elevated sed rate Obstructive sleep apnea syndrome Expected: 03/20/2024 (Approximate), Expires: 06/19/2024 [facility] Comment on above: Expected: 03/20/2024 (Approximate), Expi res: 06/19/2024 Start: 03-20-2024 End: 06-19-2024 Comprehensive metabolic 2000 panel - Serum or Plasma COMPREHENSIVE METABOLIC PANEL Lab Routine Megaloblastic anemia due to vitamin B12 deficiency Elevated sed rate Obstructive sleep apnea syndrome Expected: 03/20/2024 (Approximate), Expires: 06/19/2024 [facility] Work Phone: Comment on above: Expected: 03/20/2024 (Approximate), Expi res: 06/19/2024 Start: 03-20-2024 End: 12-29-2024 Erythrocyte sedimentation rate SEDIMENTATION RATE, WESTERGREN Lab Routine Elevated C-reactive protein (CRP) Elevated sed rate Expected: 03/20/2024 (Approximate), Expires: 12/29/2024 [facility] Work Phone: Comment on above: Expected: 03/20/2024 (Approximate), Expi res: 12/29/2024 Start: 03-20-2024 End: 06-19-2024 Ferritin [Mass/volume] in Serum or Plasma FERRITIN Lab Routine Megaloblastic anemia due to vitamin B12 deficiency Elevated sed rate Obstructive sleep apnea syndrome Expected: 03/20/2024 (Approximate), Expires: 06/19/2024 [facility] Comment on above: Expected: 03/20/2024 (Approximate), Expi res: 06/19/2024 Start: 03-20-2024 End: 06-19-2024 Folate [Mass/volume] in Serum or Plasma FOLATE, SERUM Lab Routine Megaloblastic anemia due to vitamin B12 deficiency Elevated sed rate Obstructive sleep apnea syndrome Expected: 03/20/2024 (Approximate), Expires: 06/19/2024 [facility] Comment on above: Expected: 03/20/2024 (Approximate), Expi res: 06/19/2024 Start: 03-20-2024 End: 06-19-2024 IMMUNOGLOBULINS,IGG,IGA,IG M IMMUNOGLOBULINS,IGG,IGA,IG M Lab Routine Megaloblastic anemia due to vitamin B12 deficiency Elevated sed rate Obstructive sleep apnea syndrome Expected: 03/20/2024 (Approximate), Expires: 06/19/2024 [facility] Comment on above: Expected: 03/20/2024 (Approximate), Expi res: 06/19/2024 Start: 03-20-2024 End: 06-19-2024 Iron and Iron binding capacity panel - Serum or Plasma IRON AND TIBC Lab Routine Megaloblastic anemia due to vitamin B12 deficiency Elevated sed rate Obstructive sleep apnea syndrome Expected: 03/20/2024 (Approximate), Expires: 06/19/2024 [facility] Comment on above: Expected: 03/20/2024 (Approximate), Expi res: 06/19/2024 Start: 03-18-2024 End: 03-18-2024 Patient encounter procedure 03/18/2024 9:00 AM EDT [facility] [address] [place] [address] Lynne Ni MD [address] [facility] [address] [place], [place] [id number] May offer 03/18/24 Sat REJ 4th floor in person/virtual/phone for lupus Rheumatology Comment on above: May offer 03/18/24 Sat RE[facility] 4th floor in person/virtual/phone for lupus Start: 03-16-2024 Patient referral [facility] Work Phone: Start: 03-16-2024 End: 05-16-2025 US Breast - bilateral Bilateral breast US complete Imaging Routine Nipple discharge Expected: 03/16/2024, Expires: 05/16/2025 [facility] Work Phone: Comment on above: Expected: 03/16/2024, [...] 11:45 AM EDT Nurse Visit Hematology/Oncology [address] [facility] [place] [address] Hoda Marshall Nurse Dre [address] [facility] [place] [address] b12 Hematology/Oncology Comment on above: b12 Start: 02-22-2024 End: 02-22-2024 Patient encounter procedure 02/22/2024 11:15 AM EDT Office Visit [facility] [address] [facility] [place] [address] LAb [facility] Comment on above: LAb Start: 02-21-2024 End: 02-21-2024 Nursing evaluation of patient and report 02/21/2024 10:45 AM EDT Nurse Visit Hematology/Oncology [address] [facility] [place] [address] Hoda Marshall Nurse Dre [address] [facility] [place] [address] b12 Hematology/Oncology Comment on above: b12 Start: 02-21-2024 End: 02-21-2024 Patient encounter procedure 02/21/2024 10:30 AM EDT Office Visit [facility] [address] [facility] [place] [address] LAb [facility] Comment on above: LAb Start: 02-16-2024 [facility] Start: 02-14-2024 End: 02-14-2024 Follow-up encounter Neurology Comment on above: Cpap follow up REFILL- Benlysta- PA x 02/04/24- NCA 09/2024-, ND 02/23 Start: 02-09-2024 End: 02-09-2024 Patient encounter procedure 02/09/2024 8:00 AM EDT 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 [address] [place] [address] [id number] [facility] NE[facility]O 210 Start: 01-27-2024 End: 04-27-2024 Bacteria identified in Blood by Culture BLOOD CULTURE Microbiology Routine Pseudomonas infection Expected: 01/27/2024, Expires: 04/27/2024 [facility] Work Phone: Comment on above: Expected: 01/27/2024, Expires: Start: 01-27-2024 End: 01-27-2024 Follow-up encounter 01/27/2024 10:00 AM EDT [facility] Infectious Disease [address] [place] [address] [place] [address] [place] [address] follow up Infectious Disease Comment on above: follow up Start: 01-25-2024 End: 01-25-2024 Nursing evaluation of patient and report Hematology/Oncology Comment on above: b12 B12(change date) Start: 01-25-2024 End: 01-25-2024 Patient encounter procedure [facility] Comment on above: LAb NO LAB ORDERS LAb Start: 01-24-2024 Influenza vaccination Influenza Vaccine (#1) [facility] Comment on above: Postponed from 01/22/2023 (Patient Refus ed) Start: 01-23-2024 Covid-19 Vaccine ( season) Covid-19 Vaccine ( season) [facility] Start: 01-23-2024 Covid-19 Vaccine ( season) Covid-19 Vaccine ( season) [facility] Start: 01-23-2024 Influenza vaccination [facility] Start: 01-20-2024 End: 01-20-2024 Specialty Pharmacy [facility] Comment on above: refill - benlysta- NCA 09/2024-- pa exp: 02/04/24- 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 Start: 12-27-2023 End: 12-27-2023 Nursing evaluation of patient and report 12/27/2023 12:00 PM EDT Nurse Visit Hematology/Oncology [address] [facility] [place] [address] Hoda Marshall Nurse Dre [address] [facility] [facility] [place] [address] b12 Hematology/Oncology Comment on above: b12 Start: 12-27-2023 End: 12-27-2023 Follow-up encounter 12/27/2023 11:30 AM EDT Visit (SP) Office Hematology/Oncology [address] [facility] [place] [address] Juli Narayanan, PA-C [address] [facility] [facility] [place] [address] 13 week follow up, labs 1 week before Hematology/Oncology Comment on above: 13 week follow up, labs 1 week before Start: 12-27-2023 End: 12-27-2023 Patient encounter procedure 12/27/2023 11:15 AM EDT Office Visit [facility] [address] [place] [address] [place] [address] LAb [facility] Comment on above: LAb Start: 12-13-2023 End: 12-13-2023 Specialty Pharmacy 12/13/2023 10:00 AM EDT [facility]ty [facility]acy [facility] [address] [facility] [place] [id number] Pharmacist, [facility] [address] [place] [address] [place] [address] refill - benlysta- NCA - pa exp: 02/04/24- [facility] Comment on above: refill - benlysta- NCA - pa exp: 02/04/24- Start: 12-10-2023 End: 12-10-2023 Follow-up encounter 12/10/2023 10:45 AM EDT Visit (SP) Office Hematology/Oncology [address] [facility] [place] [address] Vera Najera MD [address] [facility] [place] [address] 13 week follow up, labs 1 week before Hematology/Oncology Comment on above: 13 week follow up, labs 1 week before Start: 12-04-2023 End: 09-03-2024 25-hydroxyvitamin D3 [Mass/volume] in Serum or Plasma VITAMIN D 25 HYDROXY Lab Routine Vitamin D deficiency Expected: 12/04/2023 (Approximate), Expires: 09/03/2024 [facility] Work Phone: Comment on above: Expected: 12/04/2023 (Approximate), Expi res: 09/03/2024 Start: 12-04-2023 End: 09-03-2024 C reactive protein [Mass/volume] in Serum or Plasma C-REACTIVE PROTEIN Lab Routine Elevated sed rate Elevated C-reactive protein (CRP) Expected: 12/04/2023 (Approximate), Expires: 09/03/2024 [facility] Work Phone: Comment on above: Expected: 12/04/2023 (Approximate), Expi res: 09/03/2024 Start: 12-04-2023 End: 09-03-2024 CBC panel - Blood by Automated count COMPLETE BLOOD COUNT Lab Routine Anemia of chronic disease Expected: 12/04/2023 (Approximate), Expires: 09/03/2024 [facility] Work Phone: Comment on above: Expected: 12/04/2023 (Approximate), Expi res: 09/03/2024 Start: 12-04-2023 End: 09-03-2024 Comprehensive metabolic 2000 panel - Serum or Plasma COMPREHENSIVE METABOLIC PANEL Lab Routine Elevated LFTs Expected: 12/04/2023 (Approximate), Expires: 09/03/2024 [facility] Work Phone: Comment on above: Expected: 12/04/2023 (Approximate), Expi res: 09/03/2024 Start: 12-04-2023 End: 09-03-2024 Erythrocyte sedimentation rate SEDIMENTATION RATE, WESTERGREN Lab Routine Elevated sed rate Elevated C-reactive protein (CRP) Expected: 12/04/2023 (Approximate), Expires: 09/03/2024 [facility] Work Phone: Comment on above: Expected: 12/04/2023 (Approximate), Expi res: 09/03/2024 Start: 12-03-2023 End: 12-03-2023 Nursing evaluation of patient and report 12/03/2023 11:00 AM EDT Nurse Visit Hematology/Oncology [address] [facility] [place] [address] Hoda Marshall Nurse Dre [address] [facility] [place] [address] b12 Hematology/Oncology Comment on above: b12 Start: 12-03-2023 End: 12-03-2023 Patient encounter procedure 12/03/2023 10:45 AM EDT Office Visit [facility] [address] [facility] [place] [address] lab [facility] Comment on above: lab Start: 12-02-2023 End: 09-08-2024 CBC W Auto Differential panel - Blood COMPLETE BLOOD COUNT AND DIFFERENTIAL Lab Routine Megaloblastic anemia due to vitamin B12 deficiency High total serum IgM Expected: 12/02/2023 (Approximate), Expires: 09/08/2024 [facility] Work Phone: Comment on above: Expected: 12/02/2023 (Approximate), Expi res: 09/08/2024 Start: 12-02-2023 End: 09-08-2024 Cobalamin (Vitamin B12) [Mass/volume] in Serum or Plasma VITAMIN B12 Lab Routine Megaloblastic anemia due to vitamin B12 deficiency High total serum IgM Expected: 12/02/2023 (Approximate), Expires: 09/08/2024 [facility] Work Phone: Comment on above: Expected: 12/02/2023 (Approximate), Expi res: 09/08/2024 Start: 12-02-2023 End: 09-08-2024 Comprehensive metabolic 2000 panel - Serum or Plasma COMPREHENSIVE METABOLIC PANEL Lab Routine Megaloblastic anemia due to vitamin B12 deficiency High total serum IgM Expected: 12/02/2023 (Approximate), Expires: 09/08/2024 [facility] Work Phone: Comment on above: Expected: 12/02/2023 (Approximate), Expi res: 09/08/2024 Start: 12-02-2023 End: 03-02-2024 Erythrocyte sedimentation rate SEDIMENTATION RATE, WESTERGREN Lab Routine Megaloblastic anemia due to vitamin B12 deficiency High total serum IgM Expected: 12/02/2023 (Approximate), Expires: 03/02/2024 [facility] Work Phone: Comment on above: Expected: 12/02/2023 (Approximate), Expi res: 03/02/2024 Start: 12-02-2023 End: 09-08-2024 Ferritin [Mass/volume] in Serum or Plasma FERRITIN Lab Routine Megaloblastic anemia due to vitamin B12 deficiency High total serum IgM Expected: 12/02/2023 (Approximate), Expires: 09/08/2024 [facility] Work Phone: Comment on above: Expected: 12/02/2023 (Approximate), Expi res: 09/08/2024 Start: 12-02-2023 End: 09-08-2024 Folate [Mass/volume] in Serum or Plasma FOLATE, SERUM Lab Routine Megaloblastic anemia due to vitamin B12 deficiency High total serum IgM Expected: 12/02/2023 (Approximate), Expires: 09/08/2024 [facility] Work Phone: Comment on above: Expected: 12/02/2023 (Approximate), Expi res: 09/08/2024 Start: 12-02-2023 End: 03-02-2024 IgA [Mass/volume] in Serum or Plasma IMMUNOGLOBULIN A Lab Routine Megaloblastic anemia due to vitamin B12 deficiency High total serum IgM Expected: 12/02/2023 (Approximate), Expires: 03/02/2024 [facility] Work Phone: Comment on above: Expected: 12/02/2023 (Approximate), Expi res: 03/02/2024 Start: 12-02-2023 End: 03-02-2024 IgE [Units/volume] in Serum or Plasma IMMUNOGLOBULIN E Lab Routine Megaloblastic anemia due to vitamin B12 deficiency High total serum IgM Expected: 12/02/2023 (Approximate), Expires: 03/02/2024 [facility] Work Phone: Comment on above: Expected: 12/02/2023 (Approximate), Expi res: 03/02/2024 Start: 12-02-2023 End: 03-02-2024 IgG [Mass/volume] in Serum or Plasma IMMUNOGLOBULIN G Lab Routine Megaloblastic anemia due to vitamin B12 deficiency High total serum IgM Expected: 12/02/2023 (Approximate), Expires: 03/02/2024 [facility] Work Phone: Comment on above: Expected: 12/02/2023 (Approximate), Expi res: 03/02/2024 Start: 12-02-2023 End: 03-02-2024 IgM [Mass/volume] in Serum or Plasma IMMUNOGLOBULIN M Lab Routine Megaloblastic anemia due to vitamin B12 deficiency High total serum IgM Expected: 12/02/2023 (Approximate), Expires: 03/02/2024 [facility] Work Phone: Comment on above: Expected: 12/02/2023 (Approximate), Expi res: 03/02/2024 Start: 12-02-2023 End: 09-08-2024 Iron and Iron binding capacity panel - Serum or Plasma IRON AND TIBC Lab Routine Megaloblastic anemia due to vitamin B12 deficiency High total serum IgM Expected: 12/02/2023 (Approximate), Expires: 09/08/2024 [facility] Work Phone: Comment on above: Expected: 12/02/2023 (Approximate), Expi res: 09/08/2024 Start: 11-29-2023 End: 11-29-2023 Nursing evaluation of patient and report 11/29/2023 2:15 PM EDT Nurse Visit Hematology/Oncology [address] [facility] [place] [address] Hoda Marshall Nurse Dre [address] [facility] [place] [address] b12 Hematology/Oncology Comment on above: b12 Start: 11-15-2023 End: 11-15-2023 Specialty Pharmacy 11/15/2023 10:00 AM EDT Specialty Pharmacy [facility] [id number] [place] [address] Pharmacist, [facility] [address] [place] [address] [place] [address] refill - benlysta- NCA - pa exp: 02/04/24- [facility] Comment on above: refill - benlysta- NCA 09/2024-urs- pa exp: 02/04/24- Start: 10-29-2023 End: 10-29-2023 Nursing evaluation of patient and report 10/29/2023 11:00 AM EDT Nurse Visit Hematology/Oncology [address] [facility] [place] [address] Hoda Marshall Nurse Dre [address] [facility] [place] [address] b12 Hematology/Oncology Comment on above: b12 Start: 10-15-2023 End: 10-15-2023 Specialty Pharmacy 10/15/2023 10:00 AM EDT Specialty Pharmacy [facility] [address] [place], [place] [id number] Pharmacist, [facility] [address] [place] [address] [address] [place] [phone] refill - [email or web address]-ursdays- pa exp: 02/04/24-l/m 10/11 [facility] Comment on above: refill - benlysta-ursdays- pa exp: 01/22 08/14-l/m 10/11 Start: 10-12-2023 End: 10-12-2023 Specialty Pharmacy 10/12/2023 10:00 AM EDT Specialty Pharmacy [facility] [address] [place], [place] [id number] Pharmacist, [facility] [address] [place] [address] [place] [address] refill - [email or web address]-Thursdays- pa exp: 02/04/24- [facility] Comment on above: refill - benlysta-Thursdays- pa exp: 01/22 08/14- Start: 10-05-2023 End: 10-05-2023 Patient encounter procedure [facility] [address] [place] [address] Lynne Ni MD [address] [place], [place] [id number] 6 mo f/u for Lupus Rheumatology Comment on above: 6 mo f/u for Lupus Start: 10-01-2023 End: 10-01-2023 Nursing evaluation of patient and report 10/01/2023 11:00 AM EDT Nurse Visit Hematology/Oncology [address] [facility] [place] [address] Hoda Marshall Nurse Dre [address] [facility] [place] [address] b12 Hematology/Oncology Comment on above: b12 Start: 09-16-2023 End: 09-16-2023 Specialty Pharmacy 09/16/2023 10:00 AM EDT Specialty Pharmacy [facility] [address] [place] [id number] [place] [address] Pharmacist, [place] [phone] refill - benlysta-Thursdays- pa exp: 02/04/24-lvm [facility] Comment on above: refill - benlysta-Thursdays- pa exp: 01/22 08/14-lvm Start: 09-13-2023 End: 09-13-2023 Patient encounter procedure 09/13/2023 9:00 AM EDT Office Visit [facility] [address] [place] [address] Kade Richardson MD [address] [place] [address] [phone] [facility] Start: 07-19-2023 End: 07-19-2023 Patient encounter procedure [facility] [facility] Start: 07-15-2023 End: 07-15-2023 Patient encounter procedure 07/15/2023 10:50 AM EST Office Visit [facility] [address] [place] [phone] Bernabe English MD [address] [facility] [address] [place] [address] [facility] Start: 07-06-2023 End: 07-06-2023 Patient encounter procedure 07/06/2023 2:30 PM EST Office Visit [facility] NEURO [address] CH[address] [facility] [place] [id number] Kade Richardson MD [address], [place] [address] [facility] NEURO 210 Start: 07-06-2023 End: 07-06-2024 Protein electrophoresis, serum Protein electrophoresis, serum Lab Routine Autoimmune disease (CMS/HCC) Autonomic dysfunction Expected: 07/06/2023 (Approximate), Expires: 07/06/2024 [facility] Work Phone: Comment on above: Expected: 07/06/2023 (Approximate), Expi res: 07/06/2024 Start: 07-06-2023 End: 07-06-2024 Protein electrophoresis, urine Protein electrophoresis, urine Lab Routine Autoimmune disease (CMS/HCC) Autonomic dysfunction Expected: 07/06/2023 (Approximate), Expires: 07/06/2024 [facility] Comment on above: Expected: 07/06/2023 (Approximate), Expi res: 07/06/2024 Start: 06-09-2023 End: 06-09-2024 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 Routine Irregular heart rate Expected: 06/09/2023 (Approximate), Expires: 06/09/2024 [facility] Work Phone: Comment on above: Expected: 06/09/2023 (Approximate), Expi res: 06/09/2024 Start: 06-09-2023 End: 06-09-2024 Lipid 1996 panel - Serum or Plasma Lipid Panel Lab Routine Primary hypertension Expected: 06/09/2023 (Approximate), Expires: 06/09/2024 [facility] Work Phone: Comment on above: Expected: 06/09/2023 (Approximate), Expi res: 06/09/2024 Start: 06-09-2023 End: 06-09-2024 Thyrotropin [Units/volume] in Serum or Plasma Thyroid Stimulating Hormone Lab Routine Irregular heart rate Expected: 06/09/2023 (Approximate), Expires: 06/09/2024 [facility] Work Phone: Comment on above: Expected: 06/09/2023 (Approximate), Expi res: 06/09/2024 Start: 06-09-2023 End: 06-09-2024 Thyroxine (T4) free [Mass/volume] in Serum or Plasma Thyroxine, Free Lab Routine Irregular heart rate Expected: 06/09/2023 (Approximate), Expires: 06/09/2024 [facility] Work Phone: Comment on above: Expected: 06/09/2023 (Approximate), Expi res: 06/09/2024 Start: 06-09-2023 End: 06-09-2025 Heart Transthoracic Transthoracic Echo (TTE) Complete Echocardiography Routine Irregular heart rate Obstructive sleep apnea syndrome Expected: 06/09/2023 (Approximate), Expires: 06/09/2025 [facility] Work Phone: Comment on above: Expected: 06/09/2023 (Approximate), Expi res: 06/09/2025 Start: 04-25-2023 End: 01-25-2024 25-hydroxyvitamin D3 [Mass/volume] in Serum or Plasma VITAMIN D 25 HYDROXY Lab Routine Vitamin D deficiency Expected: 04/25/2023 (Approximate), Expires: 01/25/2024 [facility] Work Phone: Comment on above: Expected: 04/25/2023 (Approximate), Expi res: 01/25/2024 Start: 04-25-2023 End: 01-25-2024 C reactive protein [Mass/volume] in Serum or Plasma C-REACTIVE PROTEIN (CRP) Lab Routine Elevated sed rate Elevated C-reactive protein (CRP) Expected: 04/25/2023 (Approximate), Expires: 01/25/2024 [facility] Work Phone: Comment on above: Expected: 04/25/2023 (Approximate), Expi res: 01/25/2024 Start: 04-25-2023 End: 01-25-2024 CBC panel - Blood by Automated count CBC Lab Routine Anemia of chronic disease Expected: 04/25/2023 (Approximate), Expires: 01/25/2024 [facility] Work Phone: Comment on above: Expected: 04/25/2023 (Approximate), Expi res: 01/25/2024 Start: 04-25-2023 End: 01-25-2024 Comprehensive metabolic 2000 panel - Serum or Plasma COMP METABOLIC PANEL Lab Routine Elevated LFTs Expected: 04/25/2023 (Approximate), Expires: 01/25/2024 [facility] Work Phone: Comment on above: Expected: 04/25/2023 (Approximate), Expi res: 01/25/2024 Start: 04-25-2023 End: 01-25-2024 Erythrocyte sedimentation rate SED RATE WESTERGREN Lab Routine Elevated sed rate Elevated C-reactive protein (CRP) Expected: 04/25/2023 (Approximate), Expires: 01/25/2024 [facility] Work Phone: Comment on above: Expected: 04/25/2023 (Approximate), Expi res: 01/25/2024 Start: 04-20-2023 COVID-19 Vaccine (4 - Pfizer risk series) COVID-19 Vaccine (4 - Pfizer risk series) [facility] Start: 04-20-2023 Covid-19 Vaccine ( season) Covid-19 Vaccine () [facility] Start: 04-20-2023 Covid-19 Vaccine () Covid-19 Vaccine () [facility] Start: 04-16-2023 End: 02-20-2024 CBC W Auto Differential panel - Blood CBC + DIFF Lab Routine Megaloblastic anemia due to vitamin B12 deficiency Elevated sed rate Chronic fatigue and malaise High total serum IgM JOSE RAFAEL (obstructive sleep apnea) Expected: 04/16/2023 (Approximate), Expires: 02/20/2024 [facility] Work Phone: Comment on above: Expected: 04/16/2023 (Approximate), Expi res: 02/20/2024 Start: 04-16-2023 End: 02-20-2024 Cobalamin (Vitamin B12) [Mass/volume] in Serum or Plasma VITAMIN B12 BLOOD Lab Routine Megaloblastic anemia due to vitamin B12 deficiency Elevated sed rate Chronic fatigue and malaise High total serum IgM JOSE RAFAEL (obstructive sleep apnea) Expected: 04/16/2023 (Approximate), Expires: 02/20/2024 [facility] Work Phone: Comment on above: Expected: 04/16/2023 (Approximate), Expi res: 02/20/2024 Start: 04-16-2023 End: 02-20-2024 Comprehensive metabolic 2000 panel - Serum or Plasma COMP METABOLIC PANEL Lab Routine Megaloblastic anemia due to vitamin B12 deficiency Elevated sed rate Chronic fatigue and malaise High total serum IgM JOSE RAFAEL (obstructive sleep apnea) Expected: 04/16/2023 (Approximate), Expires: 02/20/2024 [facility] Work Phone: Comment on above: Expected: 04/16/2023 (Approximate), Expi res: 02/20/2024 Start: 04-16-2023 End: 02-20-2024 Ferritin [Mass/volume] in Serum or Plasma FERRITIN BLD Lab Routine Megaloblastic anemia due to vitamin B12 deficiency Elevated sed rate Chronic fatigue and malaise High total serum IgM JOSE RAFAEL (obstructive sleep apnea) Expected: 04/16/2023 (Approximate), Expires: 02/20/2024 [facility] Work Phone: Comment on above: Expected: 04/16/2023 (Approximate), Expi res: 02/20/2024 Start: 04-16-2023 End: 02-20-2024 Folate [Mass/volume] in Serum or Plasma FOLATE SERUM Lab Routine Megaloblastic anemia due to vitamin B12 deficiency Elevated sed rate Chronic fatigue and malaise High total serum IgM JOSE RAFAEL (obstructive sleep apnea) Expected: 04/16/2023 (Approximate), Expires: 02/20/2024 [facility] Work Phone: Comment on above: Expected: 04/16/2023 (Approximate), Expi res: 02/20/2024 Start: 04-16-2023 End: 02-20-2024 Iron and Iron binding capacity panel - Serum or Plasma IRON + TIBC Lab Routine Megaloblastic anemia due to vitamin B12 deficiency Elevated sed rate Chronic fatigue and malaise High total serum IgM JOSE RAFAEL (obstructive sleep apnea) Expected: 04/16/2023 (Approximate), Expires: 02/20/2024 [facility] Work Phone: Comment on above: Expected: 04/16/2023 (Approximate), Expi res: 02/20/2024 Start: 03-23-2023 COVID-19 Vaccine (3 - Pfizer risk series) COVID-19 Vaccine (3 - Pfizer risk series) [facility] Start: 03-17-2023 Diabetes mellitus screening Diabetes Screening [facility] Start: 03-10-2023 End: 06-09-2023 Insulin [Units/volume] in Serum or Plasma INSULIN ASSAY BLOOD Lab Routine Insulin resistance, unspecified Expected: 03/10/2023, Expires: 06/09/2023 [facility] Work Phone: Comment on above: Expected: 03/10/2023, Expires: Start: 03-10-2023 End: 06-09-2023 INSULIN ANTIBODY BLD INSULIN ANTIBODY BLD Lab Routine Insulin resistance, unspecified Expected: 03/10/2023, Expires: 06/09/2023 [facility] Work Phone: Comment on above: Expected: 03/10/2023, Expires: Start: 02-11-2023 End: 02-08-2024 [id number] [Mass/volume] in Serum or Plasma B2 MICROGLOBULIN B Lab Routine Megaloblastic anemia due to vitamin B12 deficiency High total serum IgM Elevated sed rate Expected: 02/11/2023 (Approximate), Expires: 02/08/2024 [facility] Work Phone: Comment on above: Expected: 02/11/2023 (Approximate), Expi res: 02/08/2024 Start: 02-11-2023 End: 02-08-2024 Calcium.ionized [Moles/volume] in Blood CALCIUM IONIZED BLOOD Lab Routine Megaloblastic anemia due to vitamin B12 deficiency High total serum IgM Elevated sed rate Expected: 02/11/2023 (Approximate), Expires: 02/08/2024 [facility] Work Phone: Comment on above: Expected: 02/11/2023 (Approximate), Expi res: 02/08/2024 Start: 02-11-2023 End: 02-08-2024 CBC W Auto Differential panel - Blood CBC + DIFF Lab Routine Megaloblastic anemia due to vitamin B12 deficiency High total serum IgM Elevated sed rate Expected: 02/11/2023 (Approximate), Expires: 02/08/2024 [facility] Work Phone: Comment on above: Expected: 02/11/2023 (Approximate), Expi res: 02/08/2024 Start: 02-11-2023 End: 02-08-2024 Cobalamin (Vitamin B12) [Mass/volume] in Serum or Plasma VITAMIN B12 BLOOD Lab Routine Megaloblastic anemia due to vitamin B12 deficiency High total serum IgM Elevated sed rate Expected: 02/11/2023 (Approximate), Expires: 02/08/2024 [facility] Work Phone: Comment on above: Expected: 02/11/2023 (Approximate), Expi res: 02/08/2024 Start: 02-11-2023 End: 02-08-2024 Comprehensive metabolic 2000 panel - Serum or Plasma COMP METABOLIC PANEL Lab Routine Megaloblastic anemia due to vitamin B12 deficiency High total serum IgM Elevated sed rate Expected: 02/11/2023 (Approximate), Expires: 02/08/2024 [facility] Work Phone: Comment on above: Expected: 02/11/2023 (Approximate), Expi res: 02/08/2024 Start: 02-11-2023 End: 02-08-2024 Ferritin [Mass/volume] in Serum or Plasma FERRITIN BLD Lab Routine Megaloblastic anemia due to vitamin B12 deficiency High total serum IgM Elevated sed rate Expected: 02/11/2023 (Approximate), Expires: 02/08/2024 [facility] Work Phone: Comment on above: Expected: 02/11/2023 (Approximate), Expi res: 02/08/2024 Start: 02-11-2023 End: 02-08-2024 Folate [Mass/volume] in Serum or Plasma FOLATE SERUM Lab Routine Megaloblastic anemia due to vitamin B12 deficiency High total serum IgM Elevated sed rate Expected: 02/11/2023 (Approximate), Expires: 02/08/2024 [facility] Work Phone: Comment on above: Expected: 02/11/2023 (Approximate), Expi res: 02/08/2024 Start: 02-11-2023 End: 02-08-2024 Iron and Iron binding capacity panel - Serum or Plasma IRON + TIBC Lab Routine Megaloblastic anemia due to vitamin B12 deficiency High total serum IgM Elevated sed rate Expected: 02/11/2023 (Approximate), Expires: 02/08/2024 [facility] Work Phone: Comment on above: Expected: 02/11/2023 (Approximate), Expi res: 02/08/2024 Start: 02-11-2023 End: 04-13-2023 KAPPA/FARMER,FREE,SER KAPPA/FARMER,FREE,SER Lab Routine Megaloblastic anemia due to vitamin B12 deficiency High total serum IgM Elevated sed rate Expected: 02/11/2023 (Approximate), Expires: 04/13/2023 [facility] Work Phone: Comment on above: Expected: 02/11/2023 (Approximate), Expi res: 04/13/2023 Start: 02-11-2023 End: 02-08-2024 Lactate dehydrogenase [Enzymatic activity/volume] in Serum or Plasma LD LACTATE DEHYDRO Lab Routine Megaloblastic anemia due to vitamin B12 deficiency High total serum IgM Elevated sed rate Expected: 02/11/2023 (Approximate), Expires: 02/08/2024 [facility] Work Phone: Comment on above: Expected: 02/11/2023 (Approximate), Expi res: 02/08/2024 Start: 02-11-2023 End: 02-08-2024 MONOCLONAL PROTEIN, SERUM (BLOOD) MONOCLONAL PROTEIN, SERUM (BLOOD) Lab Routine Megaloblastic anemia due to vitamin B12 deficiency High total serum IgM Elevated sed rate Expected: 02/11/2023 (Approximate), Expires: 02/08/2024 [facility] Work Phone: Comment on above: Expected: 02/11/2023 (Approximate), Expi res: 02/08/2024 Start: 02-11-2023 End: 02-08-2024 Phosphate [Mass/volume] in Serum or Plasma PHOSPHORUS INORGANIC Lab Routine Megaloblastic anemia due to vitamin B12 deficiency High total serum IgM Elevated sed rate Expected: 02/11/2023 (Approximate), Expires: 02/08/2024 [facility] Work Phone: Comment on above: Expected: 02/11/2023 (Approximate), Expi res: 02/08/2024 Start: 02-11-2023 End: 02-08-2024 PROTEIN ELECTROPHORESIS SERUM W/INTERP PROTEIN ELECTROPHORESIS SERUM W/INTERP Lab Routine Megaloblastic anemia due to vitamin B12 deficiency High total serum IgM Elevated sed rate Expected: 02/11/2023 (Approximate), Expires: 02/08/2024 [facility] Work Phone: Comment on above: Expected: 02/11/2023 (Approximate), Expi res: 02/08/2024 Start: 02-11-2023 End: 02-08-2024 Urate [Mass/volume] in Serum or Plasma URIC ACID BLOOD Lab Routine Megaloblastic anemia due to vitamin B12 deficiency High total serum IgM Elevated sed rate Expected: 02/11/2023 (Approximate), Expires: 02/08/2024 [facility] Work Phone: Comment on above: Expected: 02/11/2023 (Approximate), Expi res: 02/08/2024 Start: 01-22-2023 Influenza vaccination [facility] Start: 12-17-2022 End: 10-23-2023 CBC W Auto Differential panel - Blood CBC + DIFF Lab Routine Megaloblastic anemia due to vitamin B12 deficiency Expected: 12/17/2022 (Approximate), Expires: 10/23/2023 [facility] Work Phone: Comment on above: Expected: 12/17/2022 (Approximate), Expi res: 10/23/2023 Start: 12-17-2022 End: 10-23-2023 Cobalamin (Vitamin B12) [Mass/volume] in Serum or Plasma VITAMIN B12 BLOOD Lab Routine Megaloblastic anemia due to vitamin B12 deficiency Expected: 12/17/2022 (Approximate), Expires: 10/23/2023 [facility] Work Phone: Comment on above: Expected: 12/17/2022 (Approximate), Expi res: 10/23/2023 Start: 12-17-2022 End: 10-23-2023 Comprehensive metabolic 2000 panel - Serum or Plasma COMP METABOLIC PANEL Lab Routine Megaloblastic anemia due to vitamin B12 deficiency Expected: 12/17/2022 (Approximate), Expires: 10/23/2023 [facility] Work Phone: Comment on above: Expected: 12/17/2022 (Approximate), Expi res: 10/23/2023 Start: 12-17-2022 End: 10-23-2023 Ferritin [Mass/volume] in Serum or Plasma FERRITIN BLD Lab Routine Megaloblastic anemia due to vitamin B12 deficiency Expected: 12/17/2022 (Approximate), Expires: 10/23/2023 [facility] Work Phone: Comment on above: Expected: 12/17/2022 (Approximate), Expi res: 10/23/2023 Start: 12-17-2022 End: 10-23-2023 Folate [Mass/volume] in Serum or Plasma FOLATE SERUM Lab Routine Megaloblastic anemia due to vitamin B12 deficiency Expected: 12/17/2022 (Approximate), Expires: 10/23/2023 [facility] Work Phone: Comment on above: Expected: 12/17/2022 (Approximate), Expi res: 10/23/2023 Start: 12-17-2022 End: 10-23-2023 Iron and Iron binding capacity panel - Serum or Plasma IRON + TIBC Lab Routine Megaloblastic anemia due to vitamin B12 deficiency Expected: 12/17/2022 (Approximate), Expires: 10/23/2023 [facility] Work Phone: Comment on above: Expected: 12/17/2022 (Approximate), Expi res: 10/23/2023 Start: 10-23-2022 End: 12-23-2022 25-hydroxyvitamin D3 [Mass/volume] in Serum or Plasma VITAMIN D 25 HYDROXY Lab Routine Megaloblastic anemia due to vitamin B12 deficiency Elevated sed rate High total serum IgM Chronic fatigue and malaise JOSE RAFAEL (obstructive sleep apnea) Expected: 10/23/2022, Expires: 12/23/2022 [facility] Work Phone: Comment on above: Expected: 10/23/2022, Expires: Start: 10-23-2022 End: 12-23-2022 C reactive protein [Mass/volume] in Serum or Plasma C-REACTIVE PROTEIN (CRP) Lab Routine Megaloblastic anemia due to vitamin B12 deficiency Elevated sed rate High total serum IgM Chronic fatigue and malaise JOSE RAFAEL (obstructive sleep apnea) Expected: 10/23/2022, Expires: 12/23/2022 [facility] Work Phone: Comment on above: Expected: 10/23/2022, Expires: Start: 10-23-2022 End: 12-23-2022 CBC W Auto Differential panel - Blood CBC + DIFF Lab Routine Megaloblastic anemia due to vitamin B12 deficiency Elevated sed rate High total serum IgM Chronic fatigue and malaise JOSE RAFAEL (obstructive sleep apnea) Expected: 10/23/2022, Expires: 12/23/2022 [facility] Work Phone: Comment on above: Expected: 10/23/2022, Expires: Start: 10-23-2022 End: 12-23-2022 Cobalamin (Vitamin B12) [Mass/volume] in Serum or Plasma VITAMIN B12 BLOOD Lab Routine Megaloblastic anemia due to vitamin B12 deficiency Elevated sed rate High total serum IgM Chronic fatigue and malaise JOSE RAFAEL (obstructive sleep apnea) Expected: 10/23/2022, Expires: 12/23/2022 [facility] Work Phone: Comment on above: Expected: 10/23/2022, Expires: 3 Start: 10-23-2022 End: 12-23-2022 Comprehensive metabolic 2000 panel - Serum or Plasma COMP METABOLIC PANEL Lab Routine Megaloblastic anemia due to vitamin B12 deficiency Elevated sed rate High total serum IgM Chronic fatigue and malaise JOSE RAFAEL (obstructive sleep apnea) Expected: 10/23/2022, Expires: 12/23/2022 [facility] Work Phone: Comment on above: Expected: 10/23/2022, Expires: 3 Start: 10-23-2022 End: 12-23-2022 Erythrocyte sedimentation rate SED RATE WESTERGREN Lab Routine Megaloblastic anemia due to vitamin B12 deficiency Elevated sed rate High total serum IgM Chronic fatigue and malaise JOSE RAFAEL (obstructive sleep apnea) Expected: 10/23/2022, Expires: 12/23/2022 [facility] Work Phone: Comment on above: Expected: 10/23/2022, Expires: 3 Start: 10-23-2022 End: 12-23-2022 Lactate dehydrogenase [Enzymatic activity/volume] in Serum or Plasma LD LACTATE DEHYDRO Lab Routine Megaloblastic anemia due to vitamin B12 deficiency Elevated sed rate High total serum IgM Chronic fatigue and malaise JOSE RAFAEL (obstructive sleep apnea) Expected: 10/23/2022, Expires: 12/23/2022 [facility] Work Phone: Comment on above: Expected: 10/23/2022, Expires: 3 Start: 10-23-2022 End: 12-23-2022 MONOCLONAL PROTEIN, SERUM (BLOOD) MONOCLONAL PROTEIN, SERUM (BLOOD) Lab Routine Megaloblastic anemia due to vitamin B12 deficiency Elevated sed rate High total serum IgM Chronic fatigue and malaise JOSE RAFAEL (obstructive sleep apnea) Expected: 10/23/2022, Expires: 12/23/2022 [facility] Work Phone: Comment on above: Expected: 10/23/2022, Expires: Start: 10-23-2022 End: 12-23-2022 PROT ELECT SERUM WITH DANA AND INTERP PROT ELECT SERUM WITH DANA AND INTERP Lab Routine Megaloblastic anemia due to vitamin B12 deficiency Elevated sed rate High total serum IgM Chronic fatigue and malaise JOSE RAFAEL (obstructive sleep apnea) Expected: 10/23/2022, Expires: 12/23/2022 [facility] Work Phone: Comment on above: Expected: 10/23/2022, Expires: Start: 09-19-2022 End: 08-20-2023 CBC panel - Blood by Automated count CBC Lab Routine Anemia of chronic disease Expected: 09/19/2022 (Approximate), Expires: 08/20/2023 [facility] Work Phone: Comment on above: Expected: 09/19/2022 (Approximate), Expi res: 08/20/2023 Start: 09-19-2022 End: 08-20-2023 Comprehensive metabolic 2000 panel - Serum or Plasma COMP METABOLIC PANEL Lab Routine Elevated LFTs Expected: 09/19/2022 (Approximate), Expires: 08/20/2023 [facility] Work Phone: Comment on above: Expected: 09/19/2022 (Approximate), Expi res: 08/20/2023 Start: 09-19-2022 End: 11-19-2022 TPMT PHENOTYPE/ENZYME ACTIVITY TPMT PHENOTYPE/ENZYME ACTIVITY Lab Routine 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 Expected: 09/19/2022 (Approximate), Expires: 11/19/2022 [facility] Work Phone: Comment on above: Expected: 09/19/2022 (Approximate), Expi res: 11/19/2022 Start: 08-28-2022 End: 10-28-2022 25-hydroxyvitamin D3 [Mass/volume] in Serum or Plasma VITAMIN D 25 HYDROXY Lab Routine Megaloblastic anemia due to vitamin B12 deficiency Elevated sed rate High total serum IgM Chronic fatigue and malaise Expected: 08/28/2022 (Approximate), Expires: 10/28/2022 [facility] Work Phone: Comment on above: Expected: 08/28/2022 (Approximate), Expi res: 10/28/2022 Start: 08-28-2022 End: 07-26-2023 [id number] [Mass/volume] in Serum or Plasma B2 MICROGLOBULIN B Lab Routine Megaloblastic anemia due to vitamin B12 deficiency Elevated sed rate High total serum IgM Chronic fatigue and malaise Expected: 08/28/2022 (Approximate), Expires: 07/26/2023 [facility] Work Phone: Comment on above: Expected: 08/28/2022 (Approximate), Expi res: 07/26/2023 Start: 08-28-2022 End: 10-28-2022 C reactive protein [Mass/volume] in Serum or Plasma C-REACTIVE PROTEIN (CRP) Lab Routine Megaloblastic anemia due to vitamin B12 deficiency Elevated sed rate High total serum IgM Chronic fatigue and malaise Expected: 08/28/2022 (Approximate), Expires: 10/28/2022 [facility] Work Phone: Comment on above: Expected: 08/28/2022 (Approximate), Expi res: 10/28/2022 Start: 08-28-2022 End: 07-26-2023 Calcium.ionized [Moles/volume] in Blood CALCIUM IONIZED BLOOD Lab Routine Megaloblastic anemia due to vitamin B12 deficiency Elevated sed rate High total serum IgM Chronic fatigue and malaise Expected: 08/28/2022 (Approximate), Expires: 07/26/2023 [facility] Work Phone: Comment on above: Expected: 08/28/2022 (Approximate), Expi res: 07/26/2023 Start: 08-28-2022 End: 07-26-2023 CBC W Auto Differential panel - Blood CBC + DIFF Lab Routine Megaloblastic anemia due to vitamin B12 deficiency Elevated sed rate High total serum IgM Chronic fatigue and malaise Expected: 08/28/2022 (Approximate), Expires: 07/26/2023 [facility] Work Phone: Comment on above: Expected: 08/28/2022 (Approximate), Expi res: 07/26/2023 Start: 08-28-2022 End: 10-28-2022 Cobalamin (Vitamin B12) [Mass/volume] in Serum or Plasma VITAMIN B12 BLOOD Lab Routine Megaloblastic anemia due to vitamin B12 deficiency Elevated sed rate High total serum IgM Chronic fatigue and malaise Expected: 08/28/2022 (Approximate), Expires: 10/28/2022 [facility] Work Phone: Comment on above: Expected: 08/28/2022 (Approximate), Expi res: 10/28/2022 Start: 08-28-2022 End: 07-26-2023 Comprehensive metabolic 2000 panel - Serum or Plasma COMP METABOLIC PANEL Lab Routine Megaloblastic anemia due to vitamin B12 deficiency Elevated sed rate High total serum IgM Chronic fatigue and malaise Expected: 08/28/2022 (Approximate), Expires: 07/26/2023 [facility] Work Phone: Comment on above: Expected: 08/28/2022 (Approximate), Expi res: 07/26/2023 Start: 08-28-2022 End: 10-28-2022 Erythrocyte sedimentation rate SED RATE WESTERGREN Lab Routine Megaloblastic anemia due to vitamin B12 deficiency Elevated sed rate High total serum IgM Chronic fatigue and malaise Expected: 08/28/2022 (Approximate), Expires: 10/28/2022 [facility] Work Phone: Comment on above: Expected: 08/28/2022 (Approximate), Expi res: 10/28/2022 Start: 08-28-2022 End: 10-28-2022 KAPPA/FARMER,FREE,SER KAPPA/FARMER,FREE,SER Lab Routine Megaloblastic anemia due to vitamin B12 deficiency Elevated sed rate High total serum IgM Chronic fatigue and malaise Expected: 08/28/2022 (Approximate), Expires: 10/28/2022 [facility] Work Phone: Comment on above: Expected: 08/28/2022 (Approximate), Expi res: 10/28/2022 Start: 08-28-2022 End: 07-26-2023 Lactate dehydrogenase [Enzymatic activity/volume] in Serum or Plasma LD LACTATE DEHYDRO Lab Routine Megaloblastic anemia due to vitamin B12 deficiency Elevated sed rate High total serum IgM Chronic fatigue and malaise Expected: 08/28/2022 (Approximate), Expires: 07/26/2023 [facility] Work Phone: Comment on above: Expected: 08/28/2022 (Approximate), Expi res: 07/26/2023 Start: 08-28-2022 End: 07-26-2023 MONOCLONAL PROTEIN, SERUM (BLOOD) MONOCLONAL PROTEIN, SERUM (BLOOD) Lab Routine Megaloblastic anemia due to vitamin B12 deficiency Elevated sed rate High total serum IgM Chronic fatigue and malaise Expected: 08/28/2022 (Approximate), Expires: 07/26/2023 [facility] Work Phone: Comment on above: Expected: 08/28/2022 (Approximate), Expi res: 07/26/2023 Start: 08-28-2022 End: 07-26-2023 Phosphate [Mass/volume] in Serum or Plasma PHOSPHORUS INORGANIC Lab Routine Megaloblastic anemia due to vitamin B12 deficiency Elevated sed rate High total serum IgM Chronic fatigue and malaise Expected: 08/28/2022 (Approximate), Expires: 07/26/2023 [facility] Work Phone: Comment on above: Expected: 08/28/2022 (Approximate), Expi res: 07/26/2023 Start: 08-28-2022 End: 07-26-2023 PROTEIN ELECTROPHORESIS SERUM W/INTERP PROTEIN ELECTROPHORESIS SERUM W/INTERP Lab Routine Megaloblastic anemia due to vitamin B12 deficiency Elevated sed rate High total serum IgM Chronic fatigue and malaise Expected: 08/28/2022 (Approximate), Expires: 07/26/2023 [facility] Work Phone: Comment on above: Expected: 08/28/2022 (Approximate), Expi res: 07/26/2023 Start: 08-28-2022 End: 07-26-2023 Urate [Mass/volume] in Serum or Plasma URIC ACID BLOOD Lab Routine Megaloblastic anemia due to vitamin B12 deficiency Elevated sed rate High total serum IgM Chronic fatigue and malaise Expected: 08/28/2022 (Approximate), Expires: 07/26/2023 [facility] Work Phone: Comment on above: Expected: 08/28/2022 (Approximate), Expi res: 07/26/2023 Start: 07-15-2022 End: 05-20-2023 [id number] [Mass/volume] in Serum or Plasma B2 MICROGLOBULIN B Lab Routine High total serum IgM Expected: 07/15/2022 (Approximate), Expires: 05/20/2023 [facility] Work Phone: Comment on above: Expected: 07/15/2022 (Approximate), Expi res: 05/20/2023 Start: 07-15-2022 End: 05-20-2023 Calcium.ionized [Moles/volume] in Blood CALCIUM IONIZED BLOOD Lab Routine High total serum IgM Expected: 07/15/2022 (Approximate), Expires: 05/20/2023 [facility] Work Phone: Comment on above: Expected: 07/15/2022 (Approximate), Expi res: 05/20/2023 Start: 07-15-2022 End: 05-20-2023 CBC W Auto Differential panel - Blood CBC + DIFF Lab Routine High total serum IgM Expected: 07/15/2022 (Approximate), Expires: 05/20/2023 [facility] Work Phone: Comment on above: Expected: 07/15/2022 (Approximate), Expi res: 05/20/2023 Start: 07-15-2022 End: 05-20-2023 Comprehensive metabolic 2000 panel - Serum or Plasma COMP METABOLIC PANEL Lab Routine High total serum IgM Expected: 07/15/2022 (Approximate), Expires: 05/20/2023 [facility] Work Phone: Comment on above: Expected: 07/15/2022 (Approximate), Expi res: 05/20/2023 Start: 07-15-2022 End: 09-14-2022 KAPPA/FARMER,FREE,SER KAPPA/FARMER,FREE,SER Lab Routine High total serum IgM Expected: 07/15/2022 (Approximate), Expires: 09/14/2022 [facility] Work Phone: Comment on above: Expected: 07/15/2022 (Approximate), Expi res: 09/14/2022 Start: 07-15-2022 End: 05-20-2023 Lactate dehydrogenase [Enzymatic activity/volume] in Serum or Plasma LD LACTATE DEHYDRO Lab Routine High total serum IgM Expected: 07/15/2022 (Approximate), Expires: 05/20/2023 [facility] Work Phone: Comment on above: Expected: 07/15/2022 (Approximate), Expi res: 05/20/2023 Start: 07-15-2022 End: 05-20-2023 MONOCLONAL PROTEIN, SERUM (BLOOD) MONOCLONAL PROTEIN, SERUM (BLOOD) Lab Routine High total serum IgM Expected: 07/15/2022 (Approximate), Expires: 05/20/2023 [facility] Work Phone: Comment on above: Expected: 07/15/2022 (Approximate), Expi res: 05/20/2023 Start: 07-15-2022 End: 05-20-2023 Phosphate [Mass/volume] in Serum or Plasma PHOSPHORUS INORGANIC Lab Routine High total serum IgM Expected: 07/15/2022 (Approximate), Expires: 05/20/2023 [facility] Work Phone: Comment on above: Expected: 07/15/2022 (Approximate), Expi res: 05/20/2023 Start: 07-15-2022 End: 05-20-2023 PROTEIN ELECTROPHORESIS SERUM W/INTERP PROTEIN ELECTROPHORESIS SERUM W/INTERP Lab Routine High total serum IgM Expected: 07/15/2022 (Approximate), Expires: 05/20/2023 [facility] Work Phone: Comment on above: Expected: 07/15/2022 (Approximate), Expi res: 05/20/2023 Start: 07-15-2022 End: 05-20-2023 Urate [Mass/volume] in Serum or Plasma URIC ACID BLOOD Lab Routine High total serum IgM Expected: 07/15/2022 (Approximate), Expires: 05/20/2023 [facility] Work Phone: Comment on above: Expected: 07/15/2022 (Approximate), Expi res: 05/20/2023 Start: 06-05-2022 End: 03-05-2023 25-hydroxyvitamin D3 [Mass/volume] in Serum or Plasma VITAMIN D 25 HYDROXY Lab Routine Vitamin D deficiency Expected: 06/05/2022 (Approximate), Expires: 03/05/2023 [facility] Work Phone: Comment on above: Expected: 06/05/2022 (Approximate), Expi res: 03/05/2023 Start: 06-05-2022 End: 03-05-2023 C reactive protein [Mass/volume] in Serum or Plasma C-REACTIVE PROTEIN (CRP) Lab Routine Elevated sed rate Elevated C-reactive protein (CRP) Expected: 06/05/2022 (Approximate), Expires: 03/05/2023 [facility] Work Phone: Comment on above: Expected: 06/05/2022 (Approximate), Expi res: 03/05/2023 Start: 06-05-2022 End: 03-05-2023 Cobalamin (Vitamin B12) [Mass/volume] in Serum or Plasma VITAMIN B12 BLOOD Lab Routine Vitamin B12 deficiency Expected: 06/05/2022 (Approximate), Expires: 03/05/2023 [facility] Work Phone: Comment on above: Expected: 06/05/2022 (Approximate), Expi res: 03/05/2023 Start: 06-05-2022 End: 03-05-2023 Erythrocyte sedimentation rate SED RATE WESTERGREN Lab Routine Elevated sed rate Elevated C-reactive protein (CRP) Expected: 06/05/2022 (Approximate), Expires: 03/05/2023 [facility] Work Phone: Comment on above: Expected: 06/05/2022 (Approximate), Expi res: 03/05/2023 Start: 05-06-2022 End: 03-18-2023 [id number] [Mass/volume] in Serum or Plasma B2 MICROGLOBULIN B Lab Routine Megaloblastic anemia due to vitamin B12 deficiency High total serum IgM Expected: 05/06/2022 (Approximate), Expires: 03/18/2023 [facility] Work Phone: Comment on above: Expected: 05/06/2022 (Approximate), Expi res: 03/18/2023 Start: 05-06-2022 End: 03-18-2023 Calcium.ionized [Moles/volume] in Blood CALCIUM IONIZED BLOOD Lab Routine Megaloblastic anemia due to vitamin B12 deficiency High total serum IgM Expected: 05/06/2022 (Approximate), Expires: 03/18/2023 [facility] Work Phone: Comment on above: Expected: 05/06/2022 (Approximate), Expi res: 03/18/2023 Start: 05-06-2022 End: 03-18-2023 CBC W Auto Differential panel - Blood CBC + DIFF Lab Routine Megaloblastic anemia due to vitamin B12 deficiency High total serum IgM Expected: 05/06/2022 (Approximate), Expires: 03/18/2023 [facility] Work Phone: Comment on above: Expected: 05/06/2022 (Approximate), Expi res: 03/18/2023 Start: 05-06-2022 End: 03-18-2023 Comprehensive metabolic 2000 panel - Serum or Plasma COMP METABOLIC PANEL Lab Routine Megaloblastic anemia due to vitamin B12 deficiency High total serum IgM Expected: 05/06/2022 (Approximate), Expires: 03/18/2023 [facility] Work Phone: Comment on above: Expected: 05/06/2022 (Approximate), Expi res: 03/18/2023 Start: 05-06-2022 End: 03-18-2023 Ferritin [Mass/volume] in Serum or Plasma FERRITIN BLD Lab Routine Megaloblastic anemia due to vitamin B12 deficiency High total serum IgM Expected: 05/06/2022 (Approximate), Expires: 03/18/2023 [facility] Work Phone: Comment on above: Expected: 05/06/2022 (Approximate), Expi res: 03/18/2023 Start: 05-06-2022 End: 03-18-2023 Iron and Iron binding capacity panel - Serum or Plasma IRON + TIBC Lab Routine Megaloblastic anemia due to vitamin B12 deficiency High total serum IgM Expected: 05/06/2022 (Approximate), Expires: 03/18/2023 [facility] Work Phone: Comment on above: Expected: 05/06/2022 (Approximate), Expi res: 03/18/2023 Start: 05-06-2022 End: 03-18-2023 Lactate dehydrogenase [Enzymatic activity/volume] in Serum or Plasma LD LACTATE DEHYDRO Lab Routine Megaloblastic anemia due to vitamin B12 deficiency High total serum IgM Expected: 05/06/2022 (Approximate), Expires: 03/18/2023 [facility] Work Phone: Comment on above: Expected: 05/06/2022 (Approximate), Expi res: 03/18/2023 Start: 05-06-2022 End: 03-18-2023 MONOCLONAL PROTEIN, SERUM (BLOOD) MONOCLONAL PROTEIN, SERUM (BLOOD) Lab Routine Megaloblastic anemia due to vitamin B12 deficiency High total serum IgM Expected: 05/06/2022 (Approximate), Expires: 03/18/2023 [facility] Work Phone: Comment on above: Expected: 05/06/2022 (Approximate), Expi res: 03/18/2023 Start: 05-06-2022 End: 03-18-2023 Phosphate [Mass/volume] in Serum or Plasma PHOSPHORUS INORGANIC Lab Routine Megaloblastic anemia due to vitamin B12 deficiency High total serum IgM Expected: 05/06/2022 (Approximate), Expires: 03/18/2023 [facility] Work Phone: Comment on above: Expected: 05/06/2022 (Approximate), Expi res: 03/18/2023 Start: 05-06-2022 End: 03-18-2023 PROTEIN ELECTROPHORESIS SERUM W/INTERP PROTEIN ELECTROPHORESIS SERUM W/INTERP Lab Routine Megaloblastic anemia due to vitamin B12 deficiency High total serum IgM Expected: 05/06/2022 (Approximate), Expires: 03/18/2023 [facility] Work Phone: Comment on above: Expected: 05/06/2022 (Approximate), Expi res: 03/18/2023 Start: 05-06-2022 End: 03-18-2023 Urate [Mass/volume] in Serum or Plasma URIC ACID BLOOD Lab Routine Megaloblastic anemia due to vitamin B12 deficiency High total serum IgM Expected: 05/06/2022 (Approximate), Expires: 03/18/2023 [facility] Work Phone: Comment on above: Expected: 05/06/2022 (Approximate), Expi res: 03/18/2023 Start: 04-05-2022 COVID-19 VACCINE (5 - Pfizer risk series) COVID-19 VACCINE (5 - Pfizer risk series) [facility] Start: 03-09-2022 End: 05-09-2022 Hemoglobin A1c in Blood HGB A1C Lab Routine Elevated glucose Expected: 03/09/2022, Expires: 05/09/2022 [facility] Work Phone: Comment on above: Expected: 03/09/2022, Expires: 2 Start: 02-24-2022 End: 04-26-2022 BARTONELLA AB PANEL BARTONELLA AB PANEL Lab Routine Swelling of lymph nodes Expected: 02/24/2022, Expires: 04/26/2022 [facility] Work Phone: Comment on above: Expected: 02/24/2022, Expires: 2 Start: 02-24-2022 End: 04-26-2022 BRUCELLA AB TOTAL BRUCELLA AB TOTAL Lab Routine Swelling of lymph nodes Expected: 02/24/2022, Expires: 04/26/2022 [facility] [facility] Work Phone: Comment on above: Expected: 02/24/2022, Expires: 2 Start: 02-24-2022 End: 04-26-2022 Cryptococcus sp Ag [Presence] in Unspecified specimen by Latex agglutination CRYPTOCOCCUS AG DET Microbiology Routine Swelling of lymph nodes Expected: 02/24/2022, Expires: 04/26/2022 [facility] Work Phone: Comment on above: Expected: 02/24/2022, Expires: 2 Start: 02-24-2022 End: 04-26-2022 HISTOPLASMA AG URINE HISTOPLASMA AG URINE Lab Routine Swelling of lymph nodes Expected: 02/24/2022, Expires: 04/26/2022 [facility] Work Phone: Comment on above: Expected: 02/24/2022, Expires: 2 Start: 02-24-2022 End: 04-26-2022 HIV 1 RNA [#/volume] (viral load) in Serum or Plasma by YESSI with probe detection HIV RNA VIRAL LOAD Lab Routine Swelling of lymph nodes Expected: 02/24/2022, Expires: 04/26/2022 [facility] Work Phone: Comment on above: Expected: 02/24/2022, Expires: 2 Start: 02-24-2022 End: 04-26-2022 SYPHILIS TOTAL W/REFLEX SYPHILIS TOTAL W/REFLEX Lab Routine Swelling of lymph nodes Expected: 02/24/2022, Expires: 04/26/2022 [facility] Work Phone: Comment on above: Expected: 02/24/2022, Expires: 2 Start: 01-22-2022 Influenza vaccination [facility] Start: 08-24-2021 COVID-19 VACCINE (4 - Booster for Pfizer series) COVID-19 VACCINE (4 - Booster for Pfizer series) [facility] Start: 01-22-2021 Influenza vaccination Flu vaccine (Season Ended) [facility] Work Phone: Start: 2020 Lipid panel Lipid screen [facility] Work Phone: Start: 2020 Mammography [facility] Start: 2020 Screening for malignant neoplasm of breast [facility] Start: 2010 HPV TESTING HPV TESTING [facility] Start: 2010 Screening for malignant neoplasm of cervix [facility] Start: 2002 DTaP/Tdap/Td Vaccines (1 - Tdap) DTaP/Tdap/Td Vaccines (1 - Tdap) [facility] Start: 2001 PAP TESTING PAP TESTING [facility] Start: 2001 Screening for malignant neoplasm of cervix [facility] Start: 10-05-1999 DTaP,Tdap and Td Vaccines (1 - Tdap) DTaP,Tdap and Td Vaccines (1 - Tdap) [facility] Start: 10-05-1999 DTaP/Tdap/Td vaccine (1 - Tdap) DTaP/Tdap/Td vaccine (1 - Tdap) [employer] Phone: Start: 10-05-1999 Hepatitis B Vaccine (1 of 3 - 19+ 3-dose series) Hepatitis B Vaccine (1 of 3 - 19+ 3-dose series) [facility] Start: 10-05-1999 Hepatitis B Vaccines (1 of 3 - 19+ 3-dose series) Hepatitis B Vaccines (1 of 3 - 19+ 3-dose series) [facility] Start: 10-05-1999 Pneumococcal vaccination Pneumococcal Vaccine (1 of 2 - PCV) [facility] Start: 10-05-1999 Pneumococcal Vaccine: Pediatrics and At-Risk Adult Patients (1 of 2 - PCV) Pneumococcal Vaccine: Pediatrics and At-Risk Adult Patients (1 of 2 - PCV) [facility] Start: 10-05-1999 SHINGRIX VACCINE (1 of 2) SHINGRIX VACCINE (1 of 2) [facility] Start: 10-05-1999 Urine microalbumin profile [facility] Start: 10-05-1999 Zoster Vaccines (1 of 2) Zoster Vaccines (1 of 2) [facility] Start: 1998 Adult BMI Follow Up Plan Adult BMI Follow Up Plan [facility] Start: 1998 Adult BMI Screening Adult BMI Screening [facility] Start: 1998 Anxiety Screening Anxiety Screening [facility] Start: 1998 Hepatitis C screening Hepatitis C Screening [facility] Start: 1998 HIV SCREENING HIV SCREENING [facility] Start: 1998 HIV screening HIV Screening [facility] Start: 10-05-1995 HIV screening HIV screen [employer] Phone: Start: 1993 Varicella vaccination Varicella Vaccines (1 of 2 - 13+ 2-dose series) [facility] Start: 1992 COVID-19 Vaccine (1) COVID-19 Vaccine (1) [employer] Phone: Start: 1992 Depression Screening Depression Screening [facility] Start: 1992 Tobacco Screening Tobacco Screening [facility] Start: 10-05-1991 Screening for malignant neoplasm of cervix Cervical Cancer Screening [facility] Start: 1986 PNEUMOCOCCAL (1 - PCV) PNEUMOCOCCAL (1 - PCV) [facility] Start: 1986 Pneumococcal vaccination [facility] Start: 1986 Pneumococcal Vaccine: Pediatrics (0 to 5 Years) and At-Risk Patients (6 to 64 Years) (1 - PCV) Pneumococcal Vaccine: Pediatrics (0 to 5 Years) and At-Risk Patients (6 to 64 Years) (1 - PCV) [facility] Start: 1981 MMR Vaccines (1 of 1 - Standard series) MMR Vaccines (1 of 1 - Standard series) [facility] Start: 1981 Varicella vaccination Varicella Vaccines (1 of 2 - 2-dose childhood series) [facility] Start: 1981 Varicella vaccine (1 of 2 - 2-dose childhood series) Varicella vaccine (1 of 2 - 2-dose childhood series) [employer] Phone: Start: 1980 HEPATITIS B (1 of 3 - 3-dose series) HEPATITIS B (1 of 3 - 3-dose series) [facility] Start: 1980 Hepatitis B Vaccine (1 of 3 - 3-dose series) Hepatitis B Vaccine (1 of 3 - 3-dose series) [facility] Start: 1980 Hepatitis B Vaccines (1 of 3 - 3-dose series) Hepatitis B Vaccines (1 of 3 - 3-dose series) [facility] Start: 1980 Hepatitis C screening Hepatitis C screen [facility] Work Phone: Start: 1980 HIV screening HIV Screening [facility] Start: 1980 HPV Vaccine: Recommended Based On Risk HPV Vaccine: Recommended Based On Risk [facility] Start: 1980 Lipid panel Lipid Panel [facility] Start: 1980 Screening for osteoporosis [facility] Start: 1980 Tobacco Counseling Tobacco Counseling [facility] Start: 1980 Yearly Adult Physical Yearly Adult Physical [facility] Cardiovascular funct ion eval w/tilt table w/mntr TILT TABLE EVALUATION Cardiology Routine POTS (postural orthostatic tachycardia syndrome) Ordered: 03/09/2022 [facility] Work Phone: Comment on above: Ordered: 03/09/2022 CBC W Auto Different ial panel - Blood CBC and differential Lab Routine Menorrhagia with regular cycle Ordered: 03/23/2024 [employer] Work Phone: Comment on above: Ordered: 03/23/2024 CT Abdomen W contrast IV [facility] End: 03-05-2024 DXA-AXIAL SKELETON DXA-AXIAL SKELETON Radiology Routine Steroid-induced osteoporosis 1 Occurrences starting 02/04/2023 until 03/05/2024 [facility] Work Phone: Comment on above: 1 Occurrences starting 02/04/2023 until 03/05/2024 End: 03-05-2024 DXA-FOREARM SKELETON DXA-FOREARM SKELETON Radiology Routine Steroid-induced osteoporosis 1 Occurrences starting 02/04/2023 until 03/05/2024 [facility] Work Phone: Comment on above: 1 Occurrences starting 02/04/2023 until 03/05/2024 ECG 12 Lead ECG 12 Lead ECG Routine Irregular heart rate 06/09/2023 8:28 AM EST [facility] Work Phone: hCG, quantitative, hCG, quantitative, Lab Routine Menorrhagia with regular cycle Ordered: 03/23/2024 [employer] Comment on above: Ordered: 03/23/2024 Hemoglobin A1c/Hemoglobin.total in Blood Hemoglobin A1c Lab Routine Menorrhagia with regular cycle Ordered: 03/23/2024 [facility] [employer] Comment on above: Ordered: 03/23/2024 End: 03-09-2023 HOME SLEEP APNEA TEST (HSAT) HOME SLEEP APNEA TEST (HSAT) Procedures Routine Somnolence, daytime Snoring 1 Occurrences starting 03/09/2022 until 03/09/2023 [facility] Work Phone: Comment on above: 1 Occurrences starting 03/09/2022 until 03/09/2023 HYDROGEN BREATH TEST B/O HYDROGE N BREATH TEST B/O Procedures Routine Diarrhea, unspecified type Abdominal pressure Ordered: 06/14/2024 [facility] Work Phone: Comment on above: Ordered: 06/14/2024 Oxygen therapy [[facility] Data Set] Initiate Oxygen Therapy Protocol Respiratory Care Routine Daily until discontinued starting 10/07/2020 [facility] Work Phone: Comment on above: Daily until discontinued starting 2020 Patient Education Know your Meds Jorge Luis Non Diagnostic Block [facility] Work Phone: Patient referral [facility] Work Phone: End: 03-04-2023 Polysomnogram POLYSOMNOGRAM (PSG) Procedures Routine Somnolence, daytime Snoring 1 Occurrences starting 03/04/2022 until 03/04/2023 [facility] Work Phone: Comment on above: 1 Occurrences starting 03/04/2022 until 03/04/2023 Prothrombin time (PT ) in Blood by Coagulation assay Protime-INR Lab Routine Menorrhagia with regular cycle Ordered: 03/23/2024 [employer] Comment on above: Ordered: 03/23/2024 THIN PREP TIS PAP AN D HR HPV DNA THIN PREP TIS PAP AND HR HPV DNA Pathology and Cytology Routine Well woman exam with routine gynecological exam Ordered: 06/06/2024 [facility] Comment on above: Ordered: 06/06/2024 Thyrotropin [Units/v olume] in Serum or Plasma TSH Lab Routine Menorrhagia with regular cycle Ordered: 03/23/2024 [facility] Comment on above: Ordered: 03/23/2024 Thyroxine (T4) free [Mass/volume] in Serum or Plasma T4, free Lab Routine Menorrhagia with regular cycle Ordered: 03/23/2024 [facility] Comment on above: Ordered: 03/23/2024 [facility] Immunizations Immunization Date Immunization Notes Care Provider Fa cility 02-23-2023 COVID-19 vaccine, ag e 12+ yr, 2022- season ([employer]) Lynne Ni MD Work Phone: [facility] 02-08-2022 COVID-19 mRNA Bivale nt Booster (Pfizer) Gay Enciso 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 2024 Self-pay [id number] 2017 Medicaid (Managed Care) [facility] [id number] 2017 Private Health Insurance [facility] MEDICA[facility] [id number] 2017 Unknown [employer] [facility] [id number] 2017-Present [address] [place] [address] [id number] 2009 Medicaid [facility] [facility] [id number] 2009-Present [phone] [address] [place] [address] Medicaid [id number] 2009 Medicaid [id number] 1980 Unknown [id number] 2.16.840.1.805138.3.579.2. 185 1980 Unknown [id number] 2.16.840.1.500417.3.579.2. 175 1980 Unknown [id number] 2.16.840.1.905250.3.579.2. 593 1980 Unknown [id number] 2.16.840.1.708180.3.579.2. 593 1980 Unknown [id number] 2.16.840.1.173327.3.579.2. 593 1980 Unknown [id number] 2.16.840.1.824332.3.579.2. 593 1980 Unknown [id number] 2.16.840.1.288850.3.579.2. 593 1980 Unknown [id number] 2.16.840.1.190039.3.579.2. 593 1980 Unknown [id number] 2.16.840.1.313839.3.579.2. 593 1980 Unknown [id number] 2.16.840.1.892966.3.579.2. 593 1980 Unknown [id number] 2.16.840.1.547846.3.579.2. 593 1980 Unknown [id number] 2.16.840.1.553839.3.579.2. 1980 Unknown [id number] 2.16.840.1.898627.3.579.2. 1258 1980 Unknown [id number] 2.16.840.1.814110.3.579.2. 1258 1980 Unknown [id number] 2.16.840.1.807313.3.579.2. 1258 1980 Unknown [id number] 2..840.1.008669.3.579.2. 1258 1980 Unknown [id number] 2..840.1.645131.3.579.2. 1258 1980 Unknown [id number] 2.840.1.498636.3.579.2. 1258 1980 Unknown [id number] 2.840.1.518020.3.579.2. 1258 1980 Unknown [id number] 2.840.1.169511.3.579.2. 1258 1980 Unknown [id number] 2.840.1.089474.3.579.2. 1258 1980 Unknown [id number] 2.840.1.514468.3.579.2. 1258 1980 Unknown [id number] 2.840.1.992605.3.579.2. 1258 1980 Unknown [id number] 2.840.1.418904.3.579.2. 1258 1980 Unknown [id number] 2.840.1.002808.3.579.2. 1258 1980 Unknown [id number] 2.16.840.1.869045.3.579.2. 1258 1980 Unknown [id number] 2.16.840.1.765673.3.579.2. 1258 1980 Unknown [id number] 2.16.840.1.864619.3.579.2. 1244 1980 Unknown [id number] 2.16.840.1.122147.3.579.2. 1244 1959 Unknown [id number] 1959 Unknown [id number] Unknown [id number] 2.16.840.1.472762.3.579.2. 531 Unknown [id number] 2.16.840.1.547356.3.579.2. 531 Social History Date Type Detail Facility Start: 10-07-2020 End: 03-09-2022 Tobacco smoking status NHIS Current every day smoker [facility] Start: 10-07-2020 End: 03-09-2022 Tobacco use and exposure Never used [employer] Start: 10-07-2020 End: 07-26-2024 Alcohol intake Lifetime non-drinker (finding) [employer] Phone: Start: 10-07-2020 History SDOH Alcohol Frequency 1 [employer] Phone: Start: 1980 Sex Assigned At Not on file M [facility] Phone: Start: 02-22-2022 End: 07-26-2024 Exposure to SARS-CoV-2 (event) Not sure [employer] Start: 05-24-1995 History of tobacco use Cigarette Smo ker [facility] Start: 05-31-2014 End: 09-24-2022 Cigarettes smoked current (pack per day) - Reported 1 [facility] Start: 10-24-2021 End: 03-18-2024 Alcohol intake Current non-drinker of alcohol (finding) [facility] Start: 10-14-2021 End: 10-24-2021 Exposure to SARS-CoV-2 (event) Unable to assess [facility] Start: 09-24-2022 End: 10-22-2022 Sex Assigned At [facility] Adult Depression Screening Assessment 1 [facility] Start: 10-19-2022 Tobacco Comment Current smoker , everyday, 11-20 cigarettes/day [facility] Start: 05-31-2023 Alcohol Comment Caffeine intak e : > 4 cups per day [facility] Start: 08-19-2016 End: 12-16-2023 Tobacco smoking status NHIS Smoker (finding) [facility] Start: 1980 Sex Assigned At Female F [facility] Start: 07-02-2016 End: 07-31-2024 Sex Female (finding) [facility] Start: 02-21-2024 Gender identity Identifies as female gender (finding) [facility] Goals Date Patient Goal Desired Activity /State Functional Status Date Assessment Result Facility 12-25-2014 Are you deaf, or do you have serious difficulty hearing No 12/25/2014 11:14 AM EDT Chichi Zarco Ma No [facility] 12-25-2014 Are you blind, or do you have serious difficulty seeing, even when wearing glasses No 12/25/2014 11:14 AM EDT Chichi Zarco Ma No [facility] 12-25-2014 Do you have serious difficulty walking or climbing stairs Yes 12/25/2014 11:14 AM EDT Chichi Zarco Ma Yes [facility] 12-25-2014 Do you have difficul ty dressing or bathing Yes 12/25/2014 11:14 AM EDT Chichi Zarco Ma Yes [facility] 12-25-2014 Because of a physica l, mental, or emotional condition, do you have difficulty doing errands alone such as visiting a physician's office or shopping No 12/25/2014 11:14 AM EDT Chichi Zarco Ma No [facility] Mental Status Date Assessment Result Facility 12-25-2014 Because of a physica l, mental, or emotional condition, do you have serious difficulty concentrating, remembering, or making decisions No 12/25/2014 11:14 AM EDT Chichi Zarco Ma No [facility] Clinical Notes 05-31-2014 to 07-26-2024 Lois Holm MD - 07/26/2024 2:50 PM ESTPatient InstructionsBernabe English MD - 07/25/2024 1:30 PM Luna Zambrano - 07/25/2024 12:18 PM Alhaji Waggoner DO - 07/20/2024 11:41 AM EST Note Date & Type Note Facility 07-26-2024 History of Present illness Narrative Subjective Ariadna Haley is a 43 y.o. female Chief Complaint Annual Exam HPI Patient is in the office for follow-up for palpitations caused by sinus tachycardia. She continue to have intermittent tachycardia especially when she is active and it seems that the effect of metoprolol is not lasting more than 8 hours. She has systemic lupus on steroids which did not help her weight and is contributing to her symptoms of dyspnea and tachycardia. She has no organic heart disease. She has been previously advised to take statin therapy but does not meet the criteria to require statin based on the LDL cholesterol 172 mg/dL. Lifestyle modifications and hopefully cutting back on steroid will be the first step in the management of this problem. She is not enthused about taking statin due to her joint problems Assessment/recommendations: 1-sinus tachycardia which is multifactorial and not related to organic heart disease. Due to short lasting effect of present dose of metoprolol tartrate we will switch the timing to every 6 hours of 50 mg. Her blood pressure is on the soft side therefore will not be too aggressive with beta-judie therapy. 2-shortness of breath related to morbid obesity and not cardiac in origin 3-tobacco abuse, was counseled for the need on tobacco cessation 4-systemic lupus being treated by rheumatology at the [facility] on steroids, Plaquenil and monoclonal antibody 5-obstructive sleep apnea on CPAP machine 6-morbid obesity, she lost several pounds since last visit and more weight loss is needed. Review of Systems Cardiovascular: Positive for chest pain and palpitations. Respiratory: Positive for shortness of breath. Vitals: 07/26/24 1506 BP: 100/60 BP Location: Right arm Patient Position: Sitting Pulse: 84 Weight: 130 kg (286 lb 12.8 oz) Height: 1.702 m (5' 7 ) Objective Physical Exam Constitutional: Appearance: Normal appearance. HENT: Nose: Nose normal. Neck: Vascular: No [...] Content: Thought content normal. Judgment: Judgment normal. Allergies Doxycycline and Sulfamethoxazole-trimethoprim Current Medications Current Outpatient Medications: acetaminophen (Tylenol) 500 mg [...] , Rfl: ergocalciferol (Vitamin D-2) 1.25 MG (43209 UT) capsule, Take 1 capsule (50,000 Units) [...] 8 hours if needed., Disp: , Rfl: immune globulin, human, (Gammagard) infusion, Infuse into a venous catheter 1 time., Disp: , Rfl: predniSONE (Deltasone) 10 mg tablet, Take 1 tablet (10 mg) by mouth once daily., Disp: , Rfl: pregabalin (Lyrica) 75 mg capsule, Take 1 capsule (75 mg) by mouth if needed., Disp: , Rfl: triamcinolone acetonide 0.025 % lotion, 1 Application., Disp: , Rfl: metoprolol tartrate (Lopressor) 50 mg tablet, Take 1 tablet by mouth 4 times a day., Disp: 360 tablet, Rfl: 3 Assessment/Plan 1. Sinus tachycardia 2. Shortness of breath Follow Up In Cardiology 3. Paroxysmal supraventricular tachycardia (CMS-HCC) Follow Up In Cardiology metoprolol tartrate (Lopressor) 50 mg tablet Follow Up In Cardiology 4. Essential hypertension metoprolol tartrate (Lopressor) 50 mg tablet 5. Obstructive sleep apnea syndrome 6. Morbid obesity (Multi) 7. Current smoker Scribe Attestation By signing my name below, I, Carina Sai GILLIS , Scribe attest that this documentation has [...] discussion and plan. documented in this encounter [facility] Work Phone: 07-26-2024 Instructions Aissatou Hanson RN - 07/26/2024 2:50 PM EST Please bring all medicines, vitamins, and herbal supplements with you when you come to the office. Prescriptions will not be filled unless you are compliant with your follow up appointments or have a follow up appointment scheduled as per instruction of your physician. Refills should be requested at the time of your visit. documented in this encounter [facility] Work Phone: 07-25-2024 History of Present illness Narrative Images from the original note were not included. Skin Check Location: Patient requests a full body skin examination Dermatologic history: no history of skin cancer Last visit: 1 year ago Follow up Diagnosis: Seborrheic Dermatitis Location: scalp Last visit: 1 year ago Symptoms: scaling Status:stable Current treatment: fluocinonide solution every day prn, clobetasol shampoo 2-3x/week Follow up Diagnosis: Lupus erythematous timidus Location: forehead Last visit: 1 year ago Symptoms: redness, denies pain, denies itching Treatments tried and failed: TAC 0.025% cream, TAC lotion Current treatment: Protopic 0.1% ointment bid. 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 Follow up Diagnosis: Hidradenitis Location: thighs Last visit: 1 year ago Symptoms: still flares but not like it was Status: stable Current treatment: clindamycin lotion every day, Hibiclens every day in shower Rash Location: hard palate, tongue Duration: months Associated symptoms: white patches on tongue Current treatments: ENT prescribed magic mouthwash but pharmacist cautioned not to use while on plaquenil so she never used it, is on chronic prednisone which makes her more prone to thrush Established patient All pertinent medical history, medications, and allergies were reviewed. General Exam: alert, oriented to person, place, and time, normal affect, well appearing Unaccompanied Areas not examined despite medical recommendation: Under socks Scalp, Examined , exam limited by hair Right leg Examined Head, Face Examined Left leg Examined Neck Examined Right foot Examined Chest Examined Left foot Examined Back Examined Buttocks Examined Abdomen Examined Digits,nails: Examined Right arm Examined Left arm Examined Lymphatics: Not examined Hands Examined 1. Hidradenitis suppurativa Left Medial Thigh, Right Medial Thigh Post inflammatory hyperpigmentation, no active lesions today. Martines Stage 1. Improved since last visit The patient was counseled that hidradenitis is a chronic inflammatory disorder of the hair follicles and sweat glands. Continue Clindamycin lotion 1% every day as needed when flaring and Hibiclens wash apply topically neck down 1-2 times a week. Follow up if flaring, ILK injection in reserve when flaring. Related Medications clindamycin (Cleocin T) 1 % lotion Apply thin later to affected areas on the thighs, once daily, 30 day supply Chlorhexidine Gluconate (Hibiclens) 4 % solution Use every day in shower from the neck down to affected areas. 2. Other seborrheic dermatitis Scalp Erythema and scale. Improved since last visit Discussed that seborrheic dermatitis is a chronic condition that can be controlled but not cured. Patient satisfied with current treatment. Continue with clobetasol shampoo 2-3/x week. Continue fluocinonide solution daily as needed for flares, hold if clear. Notify office if flaring despite treatment. 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 Continue Protopic 0.1% ointment bid prn flares, hold if clear. Notify office if worsening despite treatment. Continue to follow up with rheumatology as scheduled. Related Medications tacrolimus (Protopic) 0.1 % ointment Apply to affected area on forehead bid prn flares, hold if clear 4. Rash and other nonspecific skin eruption Left Palatal Mucosa, Right Palatal Mucosa White plaque on tongue, erythema on hard palate Patient requesting refill of nystatin mouthwash given frequent flares of thrush. Start Nystatin 407605 unit suspension qid x 14 days. Recommended patient follow up with ENT if worsening or failing to improve despite treatment to see if further workup or treatment needs done. Patient reports being told by pharmacist not to use the mouthwash they prescribed because of a possible interaction between lidocaine and plaquenil, patient has received lidocaine for biopsies with no issues, recommend patient discuss with ENT but most likely she should be able to use this product as long as she does not swallow it. Related Medications nystatin (Mycostatin) 468579 UNIT/ML suspension Take 4 mL (400,000 Units) by mouth in the morning and 4 mL (400,000 Units) at noon and 4 mL (400,000 Units) in the evening and 4 mL (400,000 Units) before bedtime. Do all this for 14 days. 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 The patient was informed that angiomas are benign growths on the the skin. No treatment is necessary. 6. Neoplasm of uncertain behavior of skin Left Axilla Subcutaneous nodule Reviewed ultrasound report which appeared benign but recommended fine needle biopsy if further workup is needed. Instructed to follow up with OWNER MANAGER for further work up. Next Visit: 1 year documented in this encounter [facility] 07-25-2024 History of Present illness Narrative [facility] [...] been reviewed prior to dispensing the medication. 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 pilocarpine (SALAGEN) 5 mg tablet Take 1 tablet by mouth three times a day. ergocalciferol 50,000 unit capsule (VITAMIN D2, DRISDOL) Take 1cap by mouth 3times a week x 10weeks, then once a week with food. predniSONE (DELTASONE) 10 mg tablet Take 40mg daily x 3, decrease by 5mg every 3days until taking 10mg daily with food thereafter (no oral nsaids) predniSONE (DELTASONE) 10 mg tablet TAKE 1 [...] short acting, (LOPRESSOR) 50 mg tablet Take 100 mg by mouth two times a day. CPAP/BIPAP/OTHER Type .CPAPSettings into a note to see current settings/supplies/DME information. acetaminophen (TYLENOL) 500 mg tablet Take 1,000 mg by mouth. aspirin 81 mg chewable tablet Take 81 mg by mouth. ibuprofen (MOTRIN) 200 mg tablet Take 600 mg by mouth. No current facility-administered medications on file prior to visit. [facility] CLINICAL ASSESSMENT [...] tolerated. Luna Emanuel documented in this encounter [facility] 07-25-2024 Note [facility] 07-20-2024 Note HNO ID: [id number] Author: ALHAJI HEAD, DO Service: ? Author Type: Physician Type: Progress Notes Filed: 07/21/2024 13:05 Note Text: VIRTUAL VISIT PROGRESS NOTE This is a virtual visit using Everpixom Video Visit. It required patient-provider interaction for the medical decision making as documented below. I have communicated my name and active licensure. The patient's identity and physical location were verified at the time of this visit. Either the patient or their legal branch service representative has been informed of the risks and benefits of -- and alternatives to -- treatment through a remote evaluation and consents to proceed with the evaluation remotely. Ariadna Haley is a 43 year old female seen for follow up of nipple discharge, last seen 01/27/2024. Since January, she has not been on antibiotics that would target pseudomonas and nothing has changed. She continues to have a scant amount of nipple discharge from bilateral nipples that is only expressed intermittently when she squeezes the nipple. There has no change in drainage, no erythema or edema of the nipple. She monitors her temperature and has not had a fever. Normal mammorgram in 04/07/2024. Breast US don 04/07/2024 for this nipple discharge. No mass or intraluminal debris bilaterally. She had a well woman exam 06/06 where a small left outer axillary lump was felt. L breast US done 06/14/2024 with 7 x 6 x 4 mm hypoechoic well-circumscribed lesion found. Though to be a sebaceous cyst vs lymph node. Due to these findings, she was placed on keflex and difficid. Repeat US in 3 months. Did not notice any improvement on kelfex. Also discussed recurrent feeling of a film on her tongue and rough patch on the roof of her mouth. She states that he has been treated for this with nystatin with some improvement. No white patches on buccal mucosa or tongue. These findings were evaluated by ENT and not thought to be related to thrush and I agree. Diagnosed with dry mouth and laryngopharyngeal reflux disease. Since last visit, she has also been started on IVIG by hematology for low IgG/ hypogammaglobulinemia. Prior nipple discharge history A culture of the nipple discharge was [...] chest done with no soft tissue abscess. HISTORY REVIEWED (electronic chart updated): PAST MEDICAL [...] of 18 Current Outpatient Medications Medication Sig ntlqkbwnesTYRWK-yxhwwl-kbgjfmedj (BMX 1:1:1) 1:1:1 liqd Take 5 mL by mouth every 6 hours as needed. pilocarpine (SALAGEN) 5 mg tablet Take 1 tablet by mouth three times a day. ergocalciferol 50,000 unit capsule (VITAMIN D2, DRISDOL) Take 1cap by mouth 3times a week x 10weeks, then once a week with food. predniSONE (DELTASONE) 10 mg tablet Take 40mg daily x 3, decrease by 5mg every 3days until taking 10mg daily with food thereafter (no oral nsaids) predniSONE (DELTASONE) 10 mg tablet TAKE 1 [...] OUTDOORS/OPHTHAMOLOGY EVERY 6-12 MONTHS WHILE ON* belimumab ( (more content not included)... [facility] 07-20-2024 History of Present illness Narrative VIRTUAL VISIT PROGRESS NOTE This is a virtual visit using Smart Furniture Zoom Video Visit. It required patient-provider interaction for the medical decision making as documented below. I have communicated my name and active licensure. The patient's identity and physical location were verified at the time of this visit. Either the patient or their legal branch service representative has been informed of the risks and benefits of -- and alternatives to -- treatment through a remote evaluation and consents to proceed with the evaluation remotely. Ariadna Haley is a 43 year old female seen for follow up of nipple discharge, last seen 01/27/2024. Since January, she has not been on antibiotics that would target pseudomonas and nothing has changed. She continues to have a scant amount of nipple discharge from bilateral nipples that is only expressed intermittently when she squeezes the nipple. There has no change in drainage, no erythema or edema of the nipple. She monitors her temperature and has not had a fever. Normal mammorgram in 04/07/2024. Breast US don 04/07/2024 for this nipple discharge. No mass or intraluminal debris bilaterally. She had a well woman exam 06/06 where a small left outer axillary lump was felt. L breast US done 06/14/2024 with 7 x 6 x 4 mm hypoechoic well-circumscribed lesion found. Though to be a sebaceous cyst vs lymph node. Due to these findings, she was placed on keflex and difficid. Repeat US in 3 months. Did not notice any improvement on kelfex. Also discussed recurrent feeling of a film on her tongue and rough patch on the roof of her mouth. She states that he has been treated for this with nystatin with some improvement. No white patches on buccal mucosa or tongue. These findings were evaluated by ENT and not thought to be related to thrush and I agree. Diagnosed with dry mouth and laryngopharyngeal reflux disease. Since last visit, she has also been started on IVIG by hematology for low IgG/ hypogammaglobulinemia. Prior nipple discharge history A culture of the nipple discharge was [...] chest done with no soft tissue abscess. HISTORY REVIEWED (electronic chart updated): PAST MEDICAL [...] of 18 Current Outpatient Medications Medication Sig marlfoubqfYRFAD-bffcen-yyjfmpydw (BMX 1:1:1) 1:1:1 liqd Take 5 mL by mouth every 6 hours as needed. pilocarpine (SALAGEN) 5 mg tablet Take 1 tablet by mouth three times a day. ergocalciferol 50,000 unit capsule (VITAMIN D2, DRISDOL) Take 1cap by mouth 3times a week x 10weeks, then once a week with food. predniSONE (DELTASONE) 10 mg tablet Take 40mg daily x 3, decrease by 5mg every 3days until taking 10mg daily with food thereafter (no oral nsaids) predniSONE (DELTASONE) 10 mg tablet TAKE 1 [...] short acting, (LOPRESSOR) 50 mg tablet Take 100 mg by mouth two times a day. CPAP/BIPAP/OTHER Type .CPAPSettings into a note to [...] experienced side effects. REVIEW OF SYSTEMS: GENERAL: subjective warm spells but temperature is normal HEENT: + film in her mouth with pain at the roof of the mouth RESPIRATORY: no cough SKIN: no rash BREAST: left axilla nodule, scant bilateral nipple discharge HEMATOLOGY/LYMPHOLOGY: on IVIG infusions PHYSICAL EXAMINATION: VIDEO EXAM: (if completed, performed via video enabled technology) GENERAL: alert and appropriate, in no distress and well-hydrated, well nourished SKIN: no rash noted HEAD: normocephalic, no abnormality or lesion noted EYES: no injection and visual acuity is grossly normal OROPHARYNX: no evidence of thrush RESPIRATORY: breathing non-labored CHEST: equal chest rise with normal respiratory effort NEUROLOGIC: no obvious deficit Breast: pin point white/ green discharge from the nipple when expressed on the R. The patient or authorized branch service representative has agreed to proceed with the sensitive examination. (Sensitive examination includes inspection and/or palpation of the breasts, pelvis, prostate and anorectal regions) Review OSH labs and breast imaging results CRP 0.1 Sed rate stable for the past 8 months, (27-32 consistently) ASSESSMENT/ PLAN: Impressions brought forward from prior, reviewed and edited as needed today. Ariadna Haley is a 43 year old female with a PMH of depression, HLD, SLE on benlysta, plaquenil, prednisone, pilonidal cyst s/p I&D, abnormal LE EMG, JOSE RAFAEL, hx of c. Diff 2023, hypogammaglobulinemia on IVIG monthly who returns for follow up of a surface wound culture of the scant amount of nipple drainage with pseudomonas oryzihabitans 11/2023. Seen 01/2024 and this was though to be a contaminant as she has no worsening symptoms or signs of acute infection. Through shared decision making she was monitored off of therapy. Since this time, her symptoms have not progressed, no fevers, no increase in drainage, no redness, tenderness of the breast. Mammogram and US without evidence of abscess. Now has a left axillary nodule which is being followed by life sciences director. Through shared decision making with the patient, we will again monitor off of therapy as there are no signs of acute infection. Dry mouth and abnormal mouth sensation - no evidence of thrush on exam. Has followed with ENT as well with no evidence of thrush on their exams. No indiciation for antifungals. Will continue to follow with ENT and planned BMX 1:1:1, pilocarpine. No need to follow up with ID at this time. Alhaji Head, July 21, 2024 documented in this encounter [facility] 07-19-2024 Procedure note [facility] enter 07-12-2024 Instructions Marky Barnes PA-C - 07/12/2024 2:33 PM EST Alginate therapy (Reflux Raft, Reflux Gourmet) documented in this encounter [facility] 07-12-2024 Note [facility] 07-12-2024 History of Present illness Narrative Images from the original note were not included. [facility] NOTE CC: Ariadna Haley is a 43 year old female who is self referred for Recurrent Thrush. ASSESSMENT: Lprd (laryngopharyngeal reflux disease) Dry mouth Current smoker Abnormal mouth sensation PLAN: - Prescribed BMX 1:1:1; counseled patient on medication, dose, route, side effects, and adverse reactions - Trial of pilocarpine; instructed patient on appropriate use, side effects and need for daily adherence to realize benefits - Educated patient on GERD and LPR, including diet and lifestyle modifications, alginate therapy; patient education handout provided - Edcuated patient on smoking cessation for 5 minutes including pharmacotherapy; patient acknowledges understanding - Advised patient to continue monitoring area of concern for changes in characteristics, new symptoms; consider follow up with Rheumatology - Advised patient on red flag warning signs, symptoms that warrant immediate evaluation in ER - Follow up in 4 weeks; sooner if clinically indicated Marky Barnes PA-C [facility] HPI: 43 year old female with history of SLE, Raynauds presents to clinic for evaluation of Recurrent Thrush. Patient repotrs since February 2024, she has noticed roof of mouth has been raw film behind teeth, dry mouth, something is different. Patient has been treated with Nystatin, clotrimazole with temporary relief but recurrence of film. Patient endorses history of GERD, LPR, pantoprazole 20mg daily started a few weeks ago, previously famotidine and omeprazole. Patient current smoker, 0.5-1 packs per day for 20+ years. Patient denies personal or family history of head or neck cancers. Patient denies recent dental work. Patient denies recent changes in medication, changes in diet. Past medical history: PAST MEDICAL HISTORY Diagnosis Date Chronic pain syndrome Depression, recurrent (HCC) Diffuse cystic mastopathy H/O mammogram 11/09/2013 Hypotension, unspecified Low back pain Megaloblastic anemia due to vitamin B12 deficiency 03/04/2022 Mixed hyperlipidemia Obesity, unspecified Pain, hip Physical exam, annual 01/16/14 Pilonidal cyst with abscess Sacroiliitis (HCC) Sciatica Tobacco use disorder Vitamin B12 deficiency Vitamin D deficiency Past surgical history: PAST SURGICAL HISTORY Procedure Laterality Date PAST SURGICAL HISTORY OF 2011 and 2012 pilonidal cyst PAST SURGICAL HISTORY OF D & C PAST SURGICAL HISTORY OF ablation Current medication(s): Current Outpatient Medications Medication Sig imgyuhoafkXYFNI-bkqjin-wbfstwxne (BMX 1:1:1) 1:1:1 liqd Take 5 mL by mouth every 6 hours as needed. pilocarpine (SALAGEN) 5 mg tablet Take 1 tablet by mouth three times a day. ergocalciferol 50,000 unit capsule (VITAMIN D2, DRISDOL) Take 1cap by mouth 3times a week x 10weeks, then once a week with food. predniSONE (DELTASONE) 10 mg tablet Take 40mg daily x 3, decrease by 5mg every 3days until taking 10mg daily with food thereafter (no oral nsaids) predniSONE (DELTASONE) 10 mg tablet TAKE 1 [...] short acting, (LOPRESSOR) 50 mg tablet Take 100 mg by mouth two times a day. CPAP/BIPAP/OTHER Type .CPAPSettings into a note to see current settings/supplies/DME information. acetaminophen (TYLENOL) 500 mg tablet Take 1,000 mg by mouth. aspirin 81 mg chewable tablet Take 81 mg by mouth. ibuprofen (MOTRIN) 200 mg tablet Take 600 mg by mouth. No current facility-administered medications for this visit. Allergies: ALLERGIES Allergen Reactions Bactrim [Sulfametho* Other: See [...] just thinks she just experienced side effects. Social history: Social History Tobacco Use Smoking status: Every Day Current packs/day: 1.00 Average packs/day: 1 pack/day for 20.0 years (20.0 ttl pk-yrs) Types: Cigarettes Smokeless tobacco: Never Vaping Use Vaping status: Never Used Substance Use Topics Alcohol use: No Drug use: Yes Types: Marijuana Comment: Past use of marijuana at age of 18 Family history: FAMILY HISTORY Problem Relation Age of Onset Cancer Father stomach other (Crohn's [Other]) Mother There are no exam notes on file for this visit. ROS: CONSTITUTIONAL: No fevers, chills, nightsweats, unintended weight loss HEAD: - headaches, - head injury EYES: - glasses/contact lens, - changes in vision, - diplopia, - blurry vision, - floaters EARS: - hearing loss, - change in hearing, - tinnitus, - otalgia, - ear pressure, - aural fullness, - otorrhea, - itching, - autophony, - ear infections, - PE tubes NOSE & SINUSES: - nasal congestion, - rhinorrhea, - PND, - epistaxis, - sense of smell, - history of nasal polyps, - sinus trouble, - sinus pressure, - sinus pain MOUTH & THROAT: + soreness, + dryness, - ulcers, + sore throat, - hoarseness, - change in voice, - teeth (caries, dentures, extractions, abscesses) NECK: - neck lumps, - goiter, - neck pain, - swollen lymph nodes or glands PULM: No dyspnea, unexplained cough CV: No chest pain, shortness of breath, leg swelling, or palpitations GI: No dysphagia/odynophagia, + problematic reflux. No nausea, vomiting, or diarrhea NEURO: No new balance problems, dizziness, or syncope. + peripheral weakness/paresthesias or numbness PSYCH: + depression PHYSICAL EXAM: GENERAL: 43 year old female is well developed, well nourished, without obvious deformities, in no acute distress COMMUNICATION: The patient speaks with a normal, clear voice without hoarseness. No stridor or stertor. Hearing is grossly normal OVERALL FACIAL APPEARANCE: No obvious scars, lesions, or masses EYES: Extraocular muscles are intact, no diplopia on primary gaze EARS: Externally normal in appearance, without scars, lesions, masses, or tenderness. Right EAC: patent; no swelling, redness, or obstruction R TM: visualized and intact; pearly saini and translucent, landmarks undistorted; no fluid behind TM R Pneumotoscopy: TM is mobile Left EAC: patent; no swelling, redness, or obstruction L TM: visualized and intact; pearly saini and translucent, landmarks undistorted; no fluid behind TM L Pneumotoscopy: TM is mobile NOSE: Externally normal in appearance, without scars, lesions, or masses. Nasal passageways are patent. The mucosa is pink and moist without lesions, visible turbinates grossly normal on anterior rhinoscopy. Septum is midline. ORAL CAVITY AND OROPHARYNX: Teeth are in poor repair and nontender. The lips, gums, oral mucosa, hard and soft palates, tonsil area, and posterior pharyngeal mucosa are without lesions; brown hairy tongue. Uvula midline. No pharyngeal swelling, oropharyngeal exudate, + posterior oropharyngeal cobblestoning, no uvula swelling. Gag reflex intact. NECK: The neck appears symmetric without scars and on palpation is without masses or lymphadenopathy. Trachea is midline and mobile. Full range of motion without symptoms. NEURO: Patient is Alert and Oriented to person, place, time, and situation. Cranial nerves II-XII grossly intact RESPIRATORY: Breathing comfortably, no evidence accessory muscle use, no intercostal retractions CV: Strong carotid artery pulse with no bruit RADS: None LABS: Relevant labs were reviewed and discussed with patient. OUTSIDE RECORDS: None PROCEDURE: None Marky Barnes PA-C [facility] Medical Decision Making: Problems: Low: Stable chronic illness and Acute, uncomplicated illness or injury Risk: Low: Low risk from testing/treatment Moderate: Drug management Medical Decision Making Level: 3 - Low documented in this encounter [facility] 07-10-2024 Evaluation note Diagnosis Onset Date Resolution Lumbosacral spondylosis acute F ebruary 2024 3:16pm Other chronic pain acute Februa 2024 3:16pm Sacroiliitis acute June 3:16pm [facility] Work Phone: 1(202) 143-454802-17-2025 Evaluation note* Diagnosis Onset Date Resolution Status Admit Date Lumbosacral spondylosis acute F ebruary 2024 3:16pm Other chronic pain acute Februa 2024 3:16pm Sacroiliitis acute June 3:16pm Lumbosacral spondylosis acute M 2024 3:40pm Other chronic pain acute July 31, 2024 3:40pm Sacroiliitis acute July 31, 2024 3:40pm [facility] Work Phone: 1(114) 398-409602-17-2025 Telephone encounter Note* Telephone Encounter - Krista Braswell MA - 07/10/2024 7:28 AM EST Pt was notified via . [facility]02-17-2025 Miscellaneous Notes* Telephone Encounter - Krista Fonseca MA - 07/10/2024 7:28 AM EST Pt was notified via . * Telephone Encounter - Lynne Ni MD - 07/09/2024 3:48 PM EST Please Call patient if MyChart note not read to review results/released to My Chart if tests completed at [facility]: Mildly high normal wbc, glucose, one borderline inflammatory test- care per primary care provider. Improved/mildly Low vitamin D maybe associated with fatigue/joint/muscle pain. Increase and stay on vitamin D script with food. Rest of labs stable. New script sent to pharmacy. Notify office if medication change is not tolerated. Recheck nonfasting labs in 3months, orders have been placed. Happy to further review and discuss at follow up visit. Thank you. 06/30/24 low vitamin D 28.5;high wbc 12.66, esr 28, glucose 116;normal rest of cbc, cmp, crp 0.1; 03/23/24 high wbc 12.89, glucose 152, esr 27, IGM 373;low vitamin D 19.9, IGG 476;normal rest of cbc, cmp, crp 0.3, vitamin b12-607, ferritin 33.3, folate 13;negative blood cultures, quantiferon tb; Patient's request for medication is as follows: Requested Prescriptions Signed Prescriptions Disp Refills ergocalciferol 50,000 unit capsule (VITAMIN D2, DRISDOL) 34 capsule 1 Sig: Take 1cap by mouth 3times a week x 10weeks, then once a week with food. Authorizing Provider: LYNNE NI Prescription(s) as above. Please process accordingly. Lynne Ni MD [facility] Telephone encounter Note * Telephone Encounter - Lynne Ni MD - 07/09/2024 3:48 PM EST Please Call patient if MyChart note not read to review results/released to My Chart if tests completed at [facility]: Mildly high normal wbc, glucose, one borderline inflammatory test- care per primary care provider. Improved/mildly Low vitamin D maybe associated with fatigue/joint/muscle pain. Increase and stay on vitamin D script with food. Rest of labs stable. New script sent to pharmacy. Notify office if medication change is not tolerated. Recheck nonfasting labs in 3months, orders have been placed. Happy to further review and discuss at follow up visit. Thank you. 06/30/24 low vitamin D 28.5;high wbc 12.66, esr 28, glucose 116;normal rest of cbc, cmp, crp 0.1; 03/23/24 high wbc 12.89, glucose 152, esr 27, IGM 373;low vitamin D 19.9, IGG 476;normal rest of cbc, cmp, crp 0.3, vitamin b12-607, ferritin 33.3, folate 13;negative blood cultures, quantiferon tb; Patient's request for medication is as follows: Requested Prescriptions Signed Prescriptions Disp Refills ergocalciferol 50,000 unit capsule (VITAMIN D2, DRISDOL) 34 capsule 1 Sig: Take 1cap by mouth 3times a week x 10weeks, then once a week with food. Authorizing Provider: LYNNE NI Prescription(s) as above. Please process accordingly. Lynne Ni MD [facility]02-06-2025 History of Present illness Narrative* Luna Emanuel - 06/29/2024 1:13 PM EST [facility] Specialty Refill Assessment Medication(s): Benlysta Patient's current [...] progressing towards achieving therapeutic goals based on medication- specific laboratory parameters, disease state markers and outcomes. Office/provider notes have been reviewed prior to dispensing the medication. 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 Med/dose confirmed: Yes Supplies needed: No supplies needed Missed doses: No Estimated days supply on hand: 1 Copay amount: 0 Payment confirmed: Yes Delivery method: FedEx Signature required: Waived on patient request Delivery address: [address] [place] [address], [facility] [id number] Delivery date: 07/05/24 Questions or concerns for the pharmacist?: No Did you have any side effects believed to be related to this medication, that resulted in hospitalization?: No Current Outpatient Medications on File Prior to Visit Medication Sig predniSONE (DELTASONE) 10 mg tablet Take 40mg daily x 3, decrease by 5mg every 3days until taking 10mg daily with food thereafter (no oral nsaids) ergocalciferol 50,000 unit capsule (VITAMIN D2, DRISDOL) Take 1cap by mouth twice a week x 10weeks,then once a week with food. predniSONE (DELTASONE) [...] short acting, (LOPRESSOR) 50 mg tablet Take 100 mg by mouth two times a day. CPAP/BIPAP/OTHER Type .CPAPSettings into a note to see current settings/supplies/DME information. acetaminophen (TYLENOL) 500 mg tablet Take 1,000 mg by mouth. aspirin 81 mg chewable tablet Take 81 mg by mouth. ibuprofen (MOTRIN) 200 mg tablet Take 600 mg by mouth. No current facility-administered medications on file prior to visit. [facility] RX SPECIALTY CLINICAL ASSESSMENT - INFLAMMATORY [...] longer tolerated. Luna Emanuel documented in this encounterUniversity Hospitals [facility] Center02-06-2025 NoteTrihealth01-31-2025 Telephone encounter Note* Telephone Encounter - Krista Fonseca MA - 06/23/2024 8:27 AM EST Pt has been notified via [employer]. [facility]01-31-2025 Miscellaneous Notes* Telephone Encounter - Krista Fonseca MA - 06/23/2024 8:27 AM EST Pt has been notified via [employer]. * Telephone Encounter - Lynne Ni MD - 06/22/2024 4:52 PM EST Please call patient. Thank you for the update and your kind patience since I am currently out of the office. Sorry to hear about your discomfort. New script sent to pharmacy. Notify office if medication change is not tolerated. Hope you feel better soon! Have a wonderful and Happy New Year! Warm regards, :) Patient's request for medication is as follows: Requested Prescriptions Signed Prescriptions Disp Refills predniSONE (DELTASONE) 10 mg tablet 120 tablet 1 Sig: Take 40mg daily x 3, decrease by 5mg every 3days until taking 10mg daily with food thereafter (no oral nsaids) Prescription(s) as above. Please process accordingly. Lynne Ni MD documented in this encounterUniversity Hospitals Portage Medical Center01-30-2025 Telephone encounter Note * Telephone Encounter - yLnne Ni MD - 06/22/2024 4:52 PM EST Please call patient. Thank you for the update and your kind patience since I am currently out of the office. Sorry to hear about your discomfort. New script sent to pharmacy. Notify office if medication change is not tolerated. Hope you feel better soon! Have a wonderful and Happy New Year! Warm regards, :) Patient's request for medication is as follows: Requested Prescriptions Signed Prescriptions Disp Refills predniSONE (DELTASONE) 10 mg tablet 120 tablet 1 Sig: Take 40mg daily x 3, decrease by 5mg every 3days until taking 10mg daily with food thereafter (no oral nsaids) Prescription(s) as above. Please process accordingly. Lynne Ni MD [facility]01-29-2025 Telephone encounter Note* Telephone Encounter - Sherrie Cortes - 06/21/2024 2:10 PM EST Thanks for the clarification! I didn't schedule the patient yet for Iron because of the question below so we are all good. Thank you! Sherrie Cortes [facility]01-29-2025 Miscellaneous Notes* Telephone Encounter - Sherrie Cortes - 06/21/2024 2:10 PM EST Thanks for the clarification! I didn't schedule the patient yet for Iron because of the question below so we are all good. Thank you! Sherrie Cortes * Telephone Encounter - Enma Hamm RN - 06/21/2024 1:14 PM EST Spoke with pt and she would like to try the OTC, as discussed. She is aware and agreeable to recheck in 3 months, as previously scheduled AVILA Diallot: pt can come off the IV Iron schedule. She will still continue with B12, as previously receiving. She is aware you will call if needed. * Telephone Encounter - Vaibhav Carvalho APRN.CNP - 06/21/2024 1:07 PM EST Ok that is fine she can try oral iron Ferrous sulfate 325 mg every other day. Ok to keep her next appointment and we will recheck. thanks documented in this encounterUniversity Hospitals Portage Medical Center01-29-2025 Telephone encounter Note * Telephone Encounter - Enma Hamm RN - 06/21/2024 1:14 PM EST Spoke with pt and she would like to try the OTC, as discussed. She is aware and agreeable to recheck in 3 months, as previously scheduled AVILA Diallot: pt can come off the IV Iron schedule. She will still continue with B12, as previously receiving. She is aware you will call if needed. [facility]01-29-2025 Telephone encounter Note* Telephone Encounter - Vaibhav Carvalho APRN.CNP - 06/21/2024 1:07 PM EST Ok that is fine she can try oral iron Ferrous sulfate 325 mg every other day. Ok to keep her next appointment and we will recheck. thanks [facility]01-28-2025 Telephone encounter Note* Telephone Encounter - Sherrie Cortes - 06/20/2024 8:38 AM EST Left another message for patient. Sent Pusherhart to call back to schedule infusions when she's ready to schedule and provided phone number. Sherrie Cortes [facility]01-28-2025 Miscellaneous Notes* Telephone Encounter - Sherrie Cortes - 06/20/2024 8:38 AM EST Left another message for patient. Sent MyChart to call back to schedule infusions when she's ready to schedule and provided phone number. Sherrie Cortes * Telephone Encounter - Sherrie Cortes - 06/16/2024 3:32 PM EST Call placed to patient, no answer. Left detailed message to call back to schedule for Venofer. Sherrie Cortes * Telephone Encounter - Vaibhav Carvalho APRN.CNP - 06/16/2024 12:26 PM EST Called patient and left a message regarding iron infusions. I did inform patient that she is low oniron and we can replace with IV infusion. Will have the office call to schedule. Encouraged to callback with any questions. documented in this encounterUniversity Hospitals Portage Medical Center01-24-2025 Telephone encounter Note * Telephone Encounter - Sherrie Cortes - 06/16/2024 3:32 PM EST Call placed to patient, no answer. Left detailed message to call back to schedule for Venofer. Sherrie Cortes [facility]01-24-2025 Telephone encounter Note* Telephone Encounter - Vaibhav Carvalho APRN.CNP - 06/16/2024 12:26 PM EST Called patient and left a message regarding iron infusions. I did inform patient that she is low oniron and we can replace with IV infusion. Will have the office call to schedule. Encouraged to callback with any questions. [facility]01-23-2025 Telephone encounter Note* Telephone Encounter - KELVIN Cabrera - 06/15/2024 11:18 AM EST Called and spoke with Patient in regards to her breast US report. Clinically area palpated is benign and US report suggestive of node vs sebaceous cyst, neoplasm can not be excluded. Patient offered breast biopsy or repeat US in 3months. We will repeat US in 3 months and start pt on kelex and dificid as she has histroy of c diff in past. Patient agrees with plan of care. She will call office if symptoms change or worsen and orders placed for repeat US in 3 months. Pt had recent [facility] that was [id number] Miscellaneous Notes* Telephone Encounter - KELVIN Cabrera - 06/15/2024 11:18 AM EST Called and spoke with Patient in regards to her breast US report. Clinically area palpated is benign and US report suggestive of node vs sebaceous cyst, neoplasm can not be excluded. Patient offered breast biopsy or repeat US in 3months. We will repeat US in 3 months and start pt on kelex and dificid as she has histroy of c diff in past. Patient agrees with plan of care. She will call office if symptoms change or worsen and orders placed for repeat US in 3 months. Pt had recent mammogram that was negative documented in this encounterMissouri Southern [id number] History of Present illness Narrative* Iraida Pate APRN.TRUE - 06/14/2024 10:43 AM EST Glucose - SIBO CPT 50589 Hydrogen Breath Test Ariadna Haley 1980 June 14, 2024 Referring Physician: Bandar Portillo NP Indication: NSG TEST INDICATIONS: Diarrhea R19.7, Abdominal Pressure R10.9 Weight: 275 lbs Location: [facility] Duration of Test: 2 hrs Hydrogen Methane CO2 MEASURED CORRECTION FACTOR TESTERS NAME Baseline 9:00 am 1 5 5.1 1.07 Christopher Sullivan HODA Test Solution Given: 100 gm glucose 10 oz liquid Christopher Laurie HODA #1 - 15 minutes 9:15 am 1 5 4.1 1.34 Christophermaria e Sullivan HODA #2 - 30 minutes 9:30 am 1 5 4.6 1.19 Christopher Sullivan HODA #3 - 45 minutes 9:45 am 1 5 4.0 1.37 Christopher Sullivan MA #4 - 60 minutes 10:00 am 1 6 3.7 1.48 Christopher Sullivan HODA #5 - 75 minutes 10:15 am 1 4 5.0 1.10 Christopher Sullivan HODA #6 - 90 minutes 10:30 am 1 5 4.2 1.30 Christopher Sullivan HODA #7 - 105 minutes 10:45 am 1 5 4.5 1.22 Christopher Sullivan HODA #8 - 120 minutes 11:00 am 5 6 4.6 1.19 Christopher Sullivan MA Guidelines Baseline < 10 ppm Hydrogen (H2) > 20 ppm over baseline Methane (CH4) > 20 ppm over baseline Final Test Results: negative Physician Signature: Iraida Pate APRN.CNP documented in this encounterUniversity Hospitals Portage Medical Center01-21-2025 Progress note* [facility] - Dionne Driver, Art Therapist - 06/13/2024 10:29 AM EST ART THERAPY NOTE SERVICE DATE: 06/13/2024 SERVICE TIME: 9:00 Referred By: self Reason for Referral: Introductory Session Type: Initial Time Spent (minutes): 30 Goals: Coping Through Diversion Interventions: Insight Oriented Response Before After Mood Anxiety Pain Scale: 0 = No pain/anxiety 10 = Worst possible pain/anxiety Response: Patient's Verbal Response: Positive Family Present: No Outcome: Goals: Met Follow Up: Will Follow Up As Needed COMMENTS: Patient was introduced to art therapy services and given mandala sheets for mindfulness at home. Patient declined art making at present but may be interested at a later date, will follow upthen. SIGNATURE: Jose Daniel Erwin Therapist PATIENT NAME: Ariadna Haley DATE: June 13, 2024 TIME: 10:29 AM PAGER/CONTACT #: [facility]01-21-2025 Miscellaneous Notes* [facility] - Dionne Driver Art Therapist - 06/13/2024 10:29 AM EST ART THERAPY NOTE SERVICE DATE: 06/13/2024 SERVICE TIME: 9:00 Referred By: self Reason for Referral: Introductory Session Type: Initial Time Spent (minutes): 30 Goals: Coping Through Diversion Interventions: Insight Oriented Response Before After Mood Anxiety Pain Scale: 0 = No pain/anxiety 10 = Worst possible pain/anxiety Response: Patient's Verbal Response: Positive Family Present: No Outcome: Goals: Met Follow Up: Will Follow Up As Needed COMMENTS: Patient was introduced to art therapy services and given mandala sheets for mindfulness at home. Patient declined art making at present but may be interested at a later date, will follow upthen. SIGNATURE: Jose Daniel Erwin Therapist PATIENT NAME: Ariadan Haley DATE: June 13, 2024 TIME: 10:29 AM PAGER/CONTACT #: documented in this encounterUniversity Hospitals Portage Medical Center01-21-2025 NoteTrihealth01-21-2025 History of Present illness Narrative* Vaibhav Carvalho APRN.MANAGER INTELLIGENCE - 06/13/2024 9:07 AM EST Images from the original note were not included. NAME: Ariadna Haley [facility] NO[facility] [id number] DATE OF SERVICE: June 13, 2024 (John) Some elements in this clinic note that are critical to medical decision making have been carefully reviewed and included from a prior clinic note dated: March 27, 2024 (Marquis) Referring Provider: Dr. Manuel Ferris Additional Clinicians [...] decreased. No Large granular Lymphocytes noted. PLAN: B12 shot today and every 4 weeks. Continue Folic acid. Frequent infections - IVIG for hypogammaglobulinemia- Q 4 weeks RTC 3 months repeat labs same day. IVIG same day. 5. May need iron infusions- will call with lab results. 6. Referral made to ID HPI: CASE HISTORY: Reverse Chronological Order 03/23/2024 - IgG, IgM 476, 373, vit D 19.9, cbc : 12.89>13.1/39.3<262, WSR - 27. Currently 2021 ongoing and generalized malaise with elevated IgM. 2020 - lymph node biopsy from neck negative for malignancy. 2019 - had a respiratory illness with dyspnea, possible bronchitis, no cough Updated Visit, June 13, 2024: Ariadna returns today for a follow-up visit. She is here for B-12 and IVIG. 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 Not being treated.her OBGYN originally did the culture. Previously saw infectious disease and she did not agree with his plan- would liketo see someone else. Continues to have fatigue and SOB with exertion. Taking her Vitamin D and intermittently taking folic acid. Denies fever, chills, diarrhea, constipation, N/V. Updated Visit, March 27, 2024: Virtual Visit [...] Seeing infectious disease. Also has some rare infectionin her breast that ID does not want [...] lower lip done 2 days ago at [facility] - awaiting results. B12 helps [...] injections. 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 She has been told they [...] PERFORMANCE STATUS: 0 PHYSICAL EXAMINATION: Vitals: BP 106/71 Pulse 79 Temp (Src) 97.6 (Temporal) Resp 16 Wt 287 lb 14.7 oz (130.6kg) SpO2 98% LMP 05/30/2024 Body surface area is 2.48 meters squared. No exam ALLERGIES: ALLERGIES Allergen Reactions Bactrim [...] 1cap by mouth twice a week x 10weeks,then once a week with food. predniSONE (DELTASONE) [...] Inject 200mg (1 pen) subcutaneously once weekly metoprolol tartrate, short acting, (LOPRESSOR) 50 mg tablet Take 100 mg by mouth two times a day. CPAP/BIPAP/OTHER Type .CPAPSettings into a note to see current settings/supplies/DME information. acetaminophen (TYLENOL) 500 mg tablet Take 1,000 mg by mouth. aspirin 81 mg chewable tablet Take 81 mg by mouth. ibuprofen (MOTRIN) 200 mg tablet Take 600 mg by mouth. pregabalin (LYRICA) 75 mg capsule take 1 capsule by mouth three times a day LABORATORY VALUES: WBC (k/uL) Date Value 05/19/2024 14.41 (H) RBC (m/uL) Date Value 05/19/2024 4.31 Hemoglobin (g/dL) Date Value 05/19/2024 13.4 Hematocrit (%) Date Value 05/19/2024 39.8 MCV (fL) Date Value 05/19/2024 92.3 MCH (pg) Date Value 05/19/2024 31.1 MCHC (g/dL) Date Value 05/19/2024 33.7 RDW-CV (%) Date Value 05/19/2024 14.3 Platelet Count (k/uL) Date Value 05/19/2024 303 MPV (fL) Date Value 05/19/2024 10.1 Glucose (mg/dL) Date Value 05/19/2024 155 (H) BUN (mg/dL) Date Value 05/19/2024 12 Creatinine (mg/dL) Date Value 05/19/2024 0.49 (L) Sodium (mmol/L) Date Value 05/19/2024 140 Potassium (mmol/L) Date Value 05/19/2024 3.8 Chloride (mmol/L) Date Value 05/19/2024 105 CO2 (mmol/L) Date Value 05/19/2024 21 (L) Protein, Total (g/dL) Date Value 05/19/2024 6.6 Albumin (g/dL) Date Value 05/19/2024 4.0 Calcium, Total (mg/dL) Date Value 05/19/2024 9.4 Alkaline Phosphatase (U/L) Date Value 05/19/2024 79 Bilirubin, Total (mg/dL) Date Value 05/19/2024 <0.2 (L) AST (U/L) Date Value 05/19/2024 12 (L) ALT (U/L) Date Value 05/19/2024 25 Cholesterol, Total (mg/dL) Date Value 05/21/2015 217 [...] Cancer Father stomach other (Crohn's [Other]) Mother . Vaibhav Carvalho APRN, NITROGLYCERIN SEPARATOR OPERATOR-C, [facility] Provided at: [place], [place] CC: Manuel Ferris MD [id number] [id number] documented in this encounterUniversity Hospitals Portage Medical Center01-20-2025 NoteTrihealth01-20-2025 History of Present illness Narrative* Lee Friedman - 06/12/2024 2:31 PM EST CMN RECEIVED BY [facility] VIA FAX, COMPLETED, AND PLACED IN PROVIDER MAILBOX FOR SIGNATURE Lee Friedman Coordinator III [facility] [place] [facility] SENDING CMN: Josh SIGNED AND DATED CMN, FAXED TO DME & CONFIRMATION PAGE RECEIVED: 06.28.2024 documented in this encounterUniversity Hospitals Portage Medical Center01-20-2025 Telephone encounter Note * Telephone Encounter - Margret Cuenca MA - 06/12/2024 12:00 PM EST Patient has an OTV appointment on 06/13. Please place lab orders. Margret Cuenca MA [facility]01-20-2025 Miscellaneous Notes* Telephone Encounter - Margret Cuenca MA - 06/12/2024 12:00 PM EST Patient has an OTV appointment on 06/13. Please place lab orders. Margret Cuenca MA documented in this encounterUniversity Hospitals Portage Medical Center01-14-2025 History of Present illness Narrative* Luna Emanuel - 06/06/2024 12:33 PM EST [facility] Specialty Refill Assessment Medication(s): Benlysta Patient's [...] progressing towards achieving therapeutic goals based on medication- specific laboratory parameters, disease state markers and outcomes. Office/provider notes have been reviewed prior to dispensing the medication. 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 Med/dose confirmed: Yes Supplies needed: No supplies needed Missed doses: No Estimated days supply on hand: 1 Copay amount: 0 Payment confirmed: Yes Delivery method: FedEx Signature required: Waived on patient request Delivery address: [address] [place] [id number] Delivery date: 06/08/24 Questions or concerns for the pharmacist?: No Did you have any side effects believed to be related to this medication, that resulted in hospitalization?: No Current Outpatient Medications on File Prior to Visit Medication Sig ergocalciferol 50,000 unit capsule (VITAMIN D2, DRISDOL) Take 1cap by mouth twice a week x 10weeks,then once a week with food. predniSONE (DELTASONE) [...] short acting, (LOPRESSOR) 50 mg tablet Take 100 mg by mouth two times a day. CPAP/BIPAP/OTHER Type .CPAPSettings into a note to see current settings/supplies/DME information. acetaminophen (TYLENOL) 500 mg tablet Take 1,000 mg by mouth. aspirin 81 mg chewable tablet Take 81 mg by mouth. ibuprofen (MOTRIN) 200 mg tablet Take 600 mg by mouth. No current facility-administered medications on file prior to visit. [facility] RX SPECIALTY CLINICAL ASSESSMENT [...] longer tolerated. Luna Emanuel documented in this encounterUniversity Hospitals Portage Medical Center01-14-2025 NoteTrihealth01-14-2025 History of Present illness Narrative* KELVIN Cabrera - 06/06/2024 11:00 AM EST Images from the original note were not included. Reason for Appointment: Patient ID: Ariadna Haley is a 43 y.o. female who presents for Well Women Visit Patient presents today for Annual Exam. MEDICATIONS Current Outpatient Medications Medication Instructions acetaminophen (Tylenol) 325 MG tablet Every 4 hours ALPRAZolam (Xanax) 0.25 MG tablet TAKE 1 TABLET BY MOUTH EVERY DAY NEEDED FOR 30 DAYS aspirin 81 mg, Daily azaTHIOprine (IMURAN) 150 mg, Daily baclofen (Lioresal) 5 MG tablet TAKE 1 TABLET BY MOUTH IN THE MORNING, EVENING AND BEFORE BEDTIME belimumab (BENLYSTA) 200 mg, Weekly Clobetasol Propionate 0.05 % shampoo 1 application to the scalp in the shower topically 3-4 times aweek diclofenac sodium 1 % gel APPLY DIRECTED TO AFFECTED AREA NEEDED ergocalciferol (VITAMIN D2) 50,000 Units, Weekly famotidine (PEPCID) 20 mg, Oral, Nightly fluocinonide (Lidex) 0.05 % external solution Apply [...] tartrate (LOPRESSOR) 100 mg, 2 times daily norethindrone-ethinyl estradiol-iron (Lo Loestrin Fe) 1 MG-10 MCG / 10 MCG tablet 1 tablet, Oral, Daily, Take 1 tablet by mouth daily nystatin (Mycostatin) cream Apply to left armpit BID until clear omeprazole (PRILOSEC) 40 mg, Oral, Daily before breakfast, Do not crush or chew. 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 Depression, recurrent ([facility]) 06/09/2023 Discoid lupus erythematosus ([facility]) 02/14/2022 Disturbance of skin sensation 07/06/2023 Elevated sed rate 03/05/2021 High total serum IgM 03/05/2021 Enthesopathy of hip region 07/06/2023 Essential hypertension (CMS/HCC) 06/09/2023 Excessive and frequent menstruation with irregular cycle 09/24/2022 Family history of Crohn's disease 03/05/2021 Hair loss 03/05/2021 Hyperlipidemia (CMS/HCC) 05/31/2014 correction 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 02/04/2023 Long-term [...] 11/15/2023 Facet arthritis of lumbar region 12/15/2023 Prediabetes 08/24/2023 Resolved Ambulatory Problems Diagnosis Date Noted No Resolved Ambulatory Problems Past Medical History: Diagnosis Date Cervical lymphadenopathy COVID-19 vaccine administered Difficulty walking Fatigue Fibromyalgia, primary GERD (gastroesophageal reflux disease) History of removal of cyst 2012 HTN (hypertension) (CMS/HCC) Hx of abnormal cervical Pap smear 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HCC) Insulin resistance Laryngopharyngeal reflux disease Lupus Nonscarring hair loss, unspecified Nontoxic goiter, unspecified (CMS/HCC) Nontoxic single thyroid nodule (CMS/HCC) Numbness Oral thrush Sleep apnea Vitamin D deficiency, unspecified Weakness of limb HISTORY PAST MEDICAL HISTORY SOCIAL HISTORY Past Medical History: Diagnosis Date Anxiety Cervical lymphadenopathy Chronic laryngopharyngitis COVID-19 vaccine administered x 2 ([employer]) Difficulty walking Fatigue Fibromyalgia, primary GERD (gastroesophageal reflux disease) History of removal of cyst 2013 tailbone x2 HTN (hypertension) (CMS/HCC) Hx of abnormal cervical Pap smear Hyperlipidemia (CMS/HCC) 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HCC) Insulin resistance Laryngopharyngeal reflux disease Lupus Nonscarring hair loss, unspecified Nontoxic goiter, unspecified (CMS/HCC) Nontoxic single thyroid nodule (CMS/HCC) Numbness Oral lesion Oral thrush Prediabetes Sleep apnea Tachycardia Vitamin D deficiency, unspecified Weakness of limb Social History Tobacco Use Smoking status: Every Day Current packs/day: 1.00 Average packs/day: 1 pack/day for 29.0 years (29.0 ttl pk-yrs) Types: Cigarettes Start date: 05/24/1995 [...] Stomach cancer Father Micheal Cancer Father Micheal Pancreatitis Father Micheal No Known Problems Sister 1 No Known Problems Daughter Lung disease Son Diabetes Maternal Grandmother Clelaura Heart failure Maternal Grandmother Clelaura Rheum arthritis Maternal Grandmother Cleginnyura Other (lung issue) Child 1 son with lung issue, 3 daughters SURGICAL HISTORY Past Surgical History: Procedure Laterality [...] Appearance: Normal appearance. She is normal weight. Genitourinary: Genitourinary Comments: Small circular cyst probable lymph node Breasts: Right: Normal. Left: Normal. HENT: Head: Normocephalic. Cardiovascular: Rate and Rhythm: Normal rate. Pulses: Normal pulses. Pulmonary: Effort: Pulmonary effort is normal. Breath sounds: Normal breath sounds. Chest: Abdominal: Palpations: Abdomen is soft. Musculoskeletal: General: Normal range of motion. Neurological: General: No focal deficit present. Mental Status: She is alert and oriented to person, place, and time. Psychiatric: Mood and Affect: Mood normal. Behavior: Behavior normal. Thought Content: Thought content normal. Judgment: Judgment normal. Vitals and nursing note reviewed. Vitals: Estimated body mass index is 45.08 kg/m as calculated from the following: Height as of 04/10/24: 5' 7 . Weight as of this encounter: 287 lb 12.8 oz. BP: 120/70 Patient's last menstrual period was 06/02/2024. ASSESSMENT & PLAN ICD-10-CM 1. Well woman exam with routine gynecological exam Z01.419 THIN PREP TIS PAP AND HR HPV DNA 2. Breast cancer screening by mammogram Z12.31 Bilateral screening mammogram Bilateral screening mammogram 3. Breast nodule N63.0 Left diagnostic mammogram Annual Exam: Patient presents today for an annual exam. Patient states she is doing well states feels a small lump to left outer axillary region. Palpated with exam and feels like small node. Patient has had normal mammorgram several months ago. We will order diagnostic and follow up as needed.Pap was obtained without difficulty. Orders Placed This Encounter Procedures Bilateral screening mammogram Left diagnostic mammogram Follow Up: Patient is to return in one year for annual unless needed otherwise. Documented by KELVIN Cabrera on behalf of: KELVIN Cabrera documented in this encounterMissouri Southern [id number] NoteTrihealth12-23-2024 History of Present illness Narrative* Deisy Jaime LSW - 05/15/2024 9:09 AM EST Patient's name appears on the [facility] First Time Treatment Report for a non- oncology treatment. No psychosocial assessment is indicated. BILL Rosenberg Goals of Care Advance Directives are not on file. documented in this encounterUniversity Hospitals Portage Medical Center12-20-2024 History of Present illness Narrative* Luna Emanuel - 05/12/2024 12:41 PM EST [facility] Special[facility] Refill Assessment Medication(s): Benlysta Patient's [...] progressing towards achieving therapeutic goals based on medication- specific laboratory parameters, disease state markers and outcomes. Office/provider notes have been reviewed prior to dispensing the medication. 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 Med/dose confirmed: Yes Supplies needed: No supplies needed Missed doses: No Estimated days supply on hand: 1 Copay amount: 0 Payment confirmed: Yes Delivery method: FedEx Signature required: Waived on patient request Delivery address: [address] [place] [address] Delivery date: 05/16/24 Questions or concerns for the pharmacist?: No Did you have any side effects believed to be related to this medication, that resulted in hospitalization?: No Current Outpatient Medications on File Prior to Visit Medication Sig ergocalciferol 50,000 unit capsule (VITAMIN D2, DRISDOL) Take 1cap by mouth twice a week x 10weeks,then once a week with food. predniSONE (DELTASONE) [...] facility-administered medications on file prior to visit. [facility] RX SPECIALTY CLINICAL ASSESSMENT [...] longer tolerated. Luna Emanuel documented in this encounterUniversity Hospitals Portage Medical Center12-20-2024 NoteTrihealth12-04-2024 Nurse Note* Radha Schofield MA - 04/26/2024 9:32 AM EST Patient Identification confirmed: yes. Injection given and documented on MAR per provider order. Radha Schofield MA [facility]12-04-2024 Nurse Note* Radha Schofield MA - 04/26/2024 9:32 AM EST Patient Identification confirmed: yes. Injection given and documented on MAR per provider order. Radha Schofield MA documented in this encounterUniversity Hospitals Portage Medical Center11-19-2024 NoteTrihealth11-18-2024 Miscellaneous Notes* Telephone Encounter - Sherrie Cortes - 04/10/2024 2:12 PM EST Patient requested this appointment be rescheduled for the end of April. She has been scheduled for 05/19, she is all set. Thank you! Sherrie Cortes * Telephone Encounter - Shantel Arce RPh - 04/10/2024 2:07 PM EST SUBQ products (eg, 20% [Cuvitru, Hizentra, Xembify]) or IM products (eg, 16% [GamaSTAN]) intravenously. It would depend upon insurance coverage and would be done as a retail prescription at designated insurance specialty pharmacy. Roland SchererD, BCOP * Telephone Encounter - Enma Hamm RN - 04/10/2024 1:02 PM EST Discussed with Mason. He would prefer pt begin the IVIG, as recommended. We will be able to monitor pt and the efficacy of dosage and results on given dosages, when completed here. Pt is in agreement. She wants to delay start, daughter having her first child, and I don't want claire sick. Discussed she will run the risk of continued infections with delay, and pt is fine with that . Blanquita: please call to r/s 04/14 appt per pt request Enma Hamm RN * Telephone Encounter - Enma Hamm RN - 04/10/2024 12:54 PM EST Called to discuss with pt. She was researching online and found SCIG a weekly subq injection to give herself that is less dose, and has less side effects. Pharmacy/Mason: please advise Enma Hamm RN * Telephone Encounter - Vera Najera MD - 04/10/2024 12:26 PM EST Really sorry - I don't recall the home infusion of IVIG - I think it is safer to give it to her in-house as IV so we can monitor infusion reactions. Sorry if I created a misunderstanding. * Telephone Encounter - Sherrie Cortes - 04/10/2024 9:53 AM EST Patient calls stating she still has not heard back about SCIg infusions at home(sp?). Patient states at her last phone visit, she mentioned this to Dr CUEVAS vs. IVIG infusions here and he stated he wasgoing to look into this and have someone [...] Please advise. Sherrie Cortes documented in this encounterUniversity Hospitals Portage Medical Center11-18-2024 Telephone encounter Note * Telephone Encounter - Sherrie Cortes - 04/10/2024 2:12 PM EST Patient requested this appointment be rescheduled for the end of April. She has been scheduled for 05/19, she is all set. Thank you! Sherrie Cortes [facility]11-18-2024 Telephone encounter Note* Telephone Encounter - Shantel Arce [facility] - 04/10/2024 2:07 PM EST SUBQ products (eg, 20% [Cuvitru, Hizentra, Xembify]) or IM products (eg, 16% [GamaSTAN]) intravenously. It would depend upon insurance coverage and would be done as a retail prescription at designated insurance specialty pharmacy. Elpidio Arce, PharmD, BCOP [facility] Work Phone: [phone] 590-179111-18-2024 Telephone encounter Note* Telephone Encounter - Enma Hamm RN - 04/10/2024 1:02 PM EST Discussed with Mason. He would prefer pt begin the IVIG, as recommended. We will be able to monitor pt and the efficacy of dosage and results on given dosages, when completed here. Pt is in agreement. She wants to delay start, daughter having her first child, and I don't want claire sick. Discussed she will run the risk of continued infections with delay, and pt is fine with that . Blanquita: please call to r/s 04/14 appt per pt request Enma Hamm RN [facility]11-18-2024 Telephone encounter Note* Telephone Encounter - Enma Hamm RN - 04/10/2024 12:54 PM EST Called to discuss with pt. She was researching online and found SCIG a weekly subq injection to give herself that is less dose, and has less side effects. Pharmacy/Mason: please advise Enma Hamm RN [facility]11-18-2024 Telephone encounter Note* Telephone Encounter - Vera Najera MD - 04/10/2024 12:26 PM EST Really sorry - I don't recall the home infusion of IVIG - I think it is safer to give it to her in-house as IV so we can monitor infusion reactions. Sorry if I created a misunderstanding. [facility]11-18-2024 History of Present illness Narrative* Gordo Barfield MD - 04/10/2024 10:20 AM EST Subjective Patient ID: Ariadna Haley is a [...] Grandmother Clesandhya Rheum arthritis Maternal Grandmother Lisandro Active Ambulatory Problems Diagnosis Date Noted Autoimmune disease (CMS/HCC) 06/01/2023 Fibromyalgia 06/01/2023 Autonomic dysfunction 06/01/2023 Dizziness [...] 03/05/2021 Hair loss 03/05/2021 Hyperlipidemia (CMS/HCC) 05/31/2014 correction 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 02/04/2023 Long-term [...] scalp in the shower topically 3-4 times aweek 236 mL 11 diclofenac sodium 1 % gel APPLY DIRECTED TO AFFECTED AREA NEEDED ergocalciferol (Vitamin D2) 1.25 MG (93758 UT) capsule Take 50,000 Units by mouth [...] referred from the [facility] documented in this encounterMissouri Southern [id number] Telephone encounter Note* Telephone Encounter - Sherrie Cortes - 04/10/2024 9:53 AM EST Patient calls stating she still has not heard back about SCIg infusions at home(sp?). Patient states at her last phone visit, she mentioned this to Dr CUEVAS vs. IVIG infusions here and he stated he wasgoing to look into this and have someone [...] Triage was involved? Please advise. Sherrie Cortes [facility]11-15-2024 NoteTrihealth11-15-2024 History of Present illness Narrative* Deisy Jaime LSW - 04/07/2024 9:30 AM EST Patient's name appears on the [facility] First Time Treatment List for a non- oncology treatment. No psychosocial assessment is indicated. BILL Rosenberg Goals of Care Advance Directives are not on file SIGNATURE: JUSTICE Rosenberg PATIENT NAME: Ariadna Haley DATE: April 07, 2024 TIME: 9:31 AM PAGER/CONTACT #: documented in this encounterUniversity Hospitals Portage Medical Center11-14-2024 Evaluation + Plan note* Assessment & Plan Note - Hayden Arciniega MD - 04/06/2024 10:10 AM EST Associated Problem(s): 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 We will get lower extremity PVR with cold immersion test. I counseled her on the diagnosis and identifying and avoiding provoking factors. I also counseled her that managing her SLE and autoimmune connective tissue disorders is balderrama for managing her Raynaud's. All her questions were answered. [facility]11-14-2024 Miscellaneous Notes* Assessment & Plan Note - Hayden Arciniega MD - 04/06/2024 10:10 AM ESTAssociated Problem(s): 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 We will get lower extremity PVR with cold immersion test. I counseled her on the diagnosis and identifying and avoiding provoking factors. I also counseled her that managing her SLE and autoimmune connective tissue disorders is balderrama for managing her Raynaud's. All her questions were answered. documented in this encounterMarietta Memorial Hospital11-14-2024 History of Present illness Narrative* Hayden Arciniega MD - 04/06/2024 9:40 AM EST Images from the original note were not included. To: No primary care provider on file. HPI: Ariadna Haley is a 43 y.o. female with Multiple medical problems including connective tissue disorders SLE rheumatoid and active smoker. She comes in with cold feeling in her extremities especiallythe lower extremities and numbness and tingling. They [...] nasal spray Administer 2 sprays into each nostrilas needed. folic acid (FOLVITE) 1 mg tablet [...] Interpersonal Safety: Unknown (07/15/2023) [facility] from [facility] Safety & Environment Fear of Current or [...] Assessment and Plan: Problem List Rheumatoid arthritis ([facility]) Relevant Medications ibuprofen (ADVIL,MOTRIN) 200 mg tablet predniSONE (STERAPRED DS) 10 mg tablet pack Systemic lupus erythematosus ([facility]) - Primary Relevant Medications ibuprofen (ADVIL,MOTRIN) 200 [...] orders for this visit: Systemic lupus erythematosus ([facility]) - Vas art doppler lwr bilat mult lev/PVR; Future Cold extremities - [facility] [place], [place] - Vas art doppler lwr bilat mult lev/PVR; Future Pain of lower extremity, unspecified laterality - [facility] [place], [place] - Vas art doppler lwr bilat mult lev/PVR; Future Rheumatoid arthritis, involving unspecified site, unspecified whether rheumatoid factor present [place] Current smoker 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 Hayden Arciniega MD, ZIA, RPVI, FSVS, FACS [facility] This note was created with the assistance of a speech recognition program. While intending to generate a timely document that accurately reflects the content of the visit, no guarantee can be provided that every grammatical or spelling mistake has been or will be identified or corrected. Thank you for your understanding. documented in this encounterMarietta Memorial Hospital11-14-2024 Instructions* Patient Instructions* Hayden Arciniega MD - 04/06/2024 9:40 AM EST Are You Ready To Kick The Habit? Free Tobacco Cessation Resources [facility] Services [facility] provide all employees with free tobacco cessation services that include: Counseling to understand nicotine addiction Education about medications that can help you successfully quit Assistance with developing a plan to quit Call to set up an individual appointment or find out when group classes will be held: [facility]: [phone] [facility]: [phone] [facility]: [phone] [facility]: [phone] Quit Smoking Action Plan and Resources [facility] offers an eight-week, online smoking cessation plan to all [facility] employees, regardless of whether [employer] is your medical insurance provider. Go to www.PearlChain.net.[email or web address]/employeewellness and click the Health Risk Assessment and Resources link to get started. In the YeHive menu, click Action Plans instead of Health Risk Assessment to access the Quit Smoking Action Plan. Additional smoking cessation resources are also available to all [facility] employees on the [employer] web page at www.Souktel/quitsmoking. [employer] Tobacco Cessation Program If [employer] is your medical insurance provider, there are more free resources available to you, including: No copays or deductibles on local tobacco cessation counseling services to help you quit Prescription assistance for tobacco cessation medications to help you quit For details about the tobacco cessation program available to [employer] members, go to www.Tail.Wowboard (Search: Tobacco Cessation Program). [place] Tobacco Quit Line 4-571-XUTJ-NOW ( ) is a toll-free, telephonic service that helps [place] residents quit smoking and using tobacco. It is staffed by experts who tailor a quit plan for you and provide you with advice. [place] Tobacco Quit Line 1-664-ZEHN-NOW ( ) is a toll-free, telephonic service that helps [place] residents quit smoking and using tobacco. It is staffed by experts who tailor a quit plan for you and provide you with advice. Two weeks of nicotine replacement therapy may be provided at no charge, if needed. Additional Resources These national organizations also offer free information and resources to help you quit tobacco: [place] [employer]--www.cancer.org/healthy/stayawayfromtobacco [place] [employer]--www.heart.org (Search: Quit Smoking) Centers for Disease Control and Prevention--www.cdc.gov/tobacco [place] [employer]--www.lungusa.org documented in this encounterMarietta Memorial Hospital11-11-2024 Telephone encounter Note* Telephone Encounter - Marky Mike DO - 04/03/2024 9:36 AM EST Changed terbinafine to itraconazole at pt request. [place] Southern [id number] Miscellaneous Notes* Telephone Encounter - Marky Mike DO - 04/03/2024 9:36 AM EST Changed terbinafine to itraconazole at pt request. documented in this encounterMissouri Southern He[id number] Telephone encounter Note* Telephone Encounter - Lynne Ni MD - 04/02/2024 2:36 PM EST Please Call patient if MyChart note not [...] process accordingly. Lynne Ni MD [facility]11-10-2024 Miscellaneous Notes* Telephone Encounter - Lynne Ni MD - 04/02/2024 2:36 PM EST Please Call patient if MyChart note not [...] Ni MD documented in this encounterUniversity Hospitals Portage Medical Center11-10-2024 History of Present illness Narrative* Marky Mike, DO - 04/02/2024 1:30 PM EST HPI: Historian of HPI: patient Ariadna Haley [...] with her immunosuppressive therapy. documented in this encounterMissouri Southern [id number] Instructions* Patient Instructions* Vera Najera MD - 04/01/2024 4:28 PM EST Obtain body fluid culture from [facility]. B12 shot today and every 4 weeks. Continue Folic acid. Frequent infections plan IVIG for hypogammaglobulinemia Start when approved. RTC 3 months repeat labs same day. IVIG same day. documented in this encounterUniversity Hospitals Portage Medical Center11-08-2024 NoteTrihealth11-08-2024 History of Present illness Narrative* Ashly Castillo - 03/31/2024 12:29 PM EST CMN RECEIVED BY [facility] VIA FAX, COMPLETED, AND PLACED IN PROVIDER MAILBOX FOR SIGNATURE Ashly Castillo Floor Surfacer II 03/31/2024 [facility] SENDING CMN: JOSH SIGNED AND DATED CMN, FAXED TO DME & CONFIRMATION PAGE RECEIVED: 04/11/2024 documented in this encounterUniversity Hospitals Portage Medical Center11-07-2024 Telephone encounter Note * Telephone Encounter - Mae Elaine - 03/30/2024 8:01 AM EST Pt is scheduled and instructions were sent thru my chart. [facility]11-07-2024 Miscellaneous Notes* Telephone Encounter - Mae Elaine - 03/30/2024 8:01 AM EST Pt is scheduled and instructions were sent thru my chart. * Telephone Encounter - Mae Elaine - 03/29/2024 9:02 AM EST Im for pt- saved time on 04/18 7:45 Also sent mychart msg. dm * Telephone Encounter - Mae Elaine - 03/20/2024 12:37 PM EDT Images from the original note were not included. documented in this encounterUniversity Hospitals Portage Medical Center11-06-2024 Telephone encounter Note * Telephone Encounter - Mae Elaine - 03/29/2024 9:02 AM EST Im for pt- saved time on 04/18 7:45 Also sent mychart msg. dm [facility]11-04-2024 NoteTrihealth11-04-2024 History of Present illness Narrative* Vera Najera MD - 03/27/2024 3:03 PM EST Images from the original note were not included. NAME: Ariadna Haley CLINIC NO.: [id number] DATE OF SERVICE: March 27, 2024 (Marquis) Some elements in this clinic note that are critical to medical decision making have been carefully reviewed and included from a prior clinic note dated: December 27, 2023 (Liz) Referring Provider: Dr. Manuel Ferris Additional Clinicians involved in Ariadna Haley's care: VIRTUAL VISIT PROGRESS NOTE This is a virtual visit using Violet Greyer Video Call. It required patient- provider interaction for the medical decision making as documented below. I have communicated my name and active licensure. The patient's identity and physical location wereverified at the time of this visit. Either the patient or their legal branch service representative has been informed of the [...] noted. PLAN: Obtain body fluid culture from [facility]. B12 shot today and every 4 [...] Seeing infectious disease. Also has some rare infectionin her breast that ID does not want [...] lower lip done 2 days ago at [facility] - awaiting results. B12 helps [...] injections. 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 She has been told they [...] CPE Hematology and Oncology Services Provided at: [place], [place] CC: Manuel Ferris MD [address] [facility] [address] documented in this encounterUniversity Hospitals Portage Medical Center10-31-2024 History of Present illness Narrative* KELVIN Cabrera - 03/23/2024 2:20 PM EDT Reason for Appointment: Patient ID: Ariadna Haley [...] scalp in the shower topically 3-4 times aweek diclofenac sodium 1 % gel APPLY DIRECTED [...] Ambulatory Problems Diagnosis Date Noted Autoimmune disease ([facility]) 06/01/2023 Fibromyalgia 06/01/2023 Autonomic dysfunction 06/01/2023 Dizziness [...] 03/05/2021 Hair loss 03/05/2021 Hyperlipidemia (CMS/HCC) 05/31/2014 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 Discussed mirena and ablation, pt fears infection due to lupus. Will discuss further if gauri astorga does not help Documented by Hazel Torres MA on behalf of: KELVIN Cabrera documented in this encounterMissouri Southern [id number] Nurse Note* Stacy Gutiérrez MA - 03/23/2024 10:16 AM EDT Patient Identification confirmed: yes. Injection given and documented on MAR per provider order. Stacy Gutiérrez MA [facility]10-31-2024 Nurse Note* Stacy Gutiérrez MA - 03/23/2024 10:16 AM EDT Patient Identification confirmed: yes. Injection given and documented on MAR per provider order. Stacy Gutiérrez MA documented in this encounterUniversity Hospitals Portage Medical Center10-28-2024 Telephone encounter Note * Telephone Encounter - Mae Elaine - 03/20/2024 12:37 PM EDT Images from the original note were not included. [facility]10-26-20[facility] History of Present illness Narrative* Lynne Ni MD - 03/18/2024 9:00 AM EDT THIS IS A AMBULATORY VIRTUAL [...] visit. Either the patient or their legal branch service representative has been informed of the [...] anticoagulation (abnormal Chest CT and repeat testing negativefor PE even though high ddimer, negative leg [...] AM stiffness. Feels safe at home. Has enoughfood, supplies and medications. Overall uncomfortable but happy [...] correction steroids/abnormal bmd, take vitamin D script once [...] due to pain. fingers swelling. 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 Reports pain 10/31. Has 10min minimal AM stiffness. Fevers off [...] Due for eye exam. Labs sent to [facility]/completed in 06/2021 (no results faxed to office, but patient pulled up results on her phone). Chronic current pain in neck, flank area, mid back, knees, legs, arms, all over pain. Better with lyrica 75mg 3times a day. Reports pain 4-12/31. Couple hrs AM stiffness. COVID vaccine [employer] 09/28/20, 10/19/20, 05/26/21. Feels safe at home. [...] pain: yes H/o precedent/frequent infection(s): as above Enthesopathy/Pike's/heel/plantar tenderness: hands random painful/tingling Skin thickening, psoriasis, [...] Breast exam:negative Pap exam: normal, last menses 10/6/21 late, not taking hormones; G7, P4, 3miscarriage Colonoscopy: no Bone Density:no History of Fractures:stress fracture R foot 2008 Height Loss: no IMMUNIZATION HX: Immunization History Administered Date(s) Administered COVID-19 original vaccine, age 12+ yr, monovalent ([employer] - PURPLE TOP) 09/28/2020 10/19/2020 05/26/2021 COVID-19 vaccine, age 12+ yr ([employer] COMIRNATY) 02/23/2023 COVID-19 vaccine, age 12+ yr, bivalent ([employer]) 02/08/2022 Pneumovax no Flu shot no Tetanus [...] (33);NL cbc, cmp, negative hla b27; Outside [place] 06/2021 low vitamin D 16, vitamin b12-307;high [...] Appropriate grooming. Very pleasant. 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 M54.42, M54.41, G89.29 Chronic bilateral low back pain with bilateral sciatica M79.674, M79.675, G89.29 Chronic pain of toes of both feet Z79.899 Long-term use of high-risk medication Z79.52 correction 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 M79.641, M79.642 Bilateral hand pain M32.9 Systemic lupus erythematosus, unspecified SLE type, unspecified organ involvement status ([facility]) E53.8 Vitamin B12 deficiency 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 Does not think she could get out of bed or walk without steroids. stable eye exam. NO new rashes/sores. Had thrush x 2, better with nystatin. 12/27/23 high glucose 120, esr 31, wbc 14.93;normal rest of cbc, cmp, crp <0.3, vitamin D 31; 12/27/23 saw heme/onc no need to be on anticoagulation (abnormal Chest CT and repeat testing negativefor PE even though high ddimer, negative leg [...] AM stiffness. Feels safe at home. Has enoughfood, supplies and medications. Overall uncomfortable but happy [...] measures, may consider osteoporosis treatment if on hand bookbinder steroids/abnormal bmd, take vitamin D script once [...] pain recommendations per primary care provider/pain clinic/patient currentlydeclined cymbalta/lyrica, see ortho, prn brace, start fall [...] (200mg) daily with a meal Please see software recruiter every 6-12months while on Hydroxychloroquine. Start 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 [...] touching your toes, sit-ups, using row machine correction pain recommendations per primary care provider/pain clinic [...] been made and documented today. Other parts ordata were deleted if not relevant for today. Plan as outlined. Medical decision making was high complexity due to patient's, multiple symptoms, multiple advancing diseases. Total time spent on this visit, with more than 50% of time spent via video & audio (virtual) or phone or face to face withpatient, in consultation, and in addition to Counseling and Coordination of Care, explanation of merlin gnosis, and planning of further management; I spent a total of 30 minutes 8:47-9:17AM on the date of the service in addition to 10-15min preparing to tallk with the patient, video & audio (virtual) or phone or [id number] patient care, completing clinical documentation, obtaining and/or reviewing separately obtained history, performing a medically appropriate examination, counseling and educating the patient/family/caregiver, orderingmedications, tests, or procedures, communicating with other HCPs [...] Workers' Compensation? No Do you need an white sugar pan tank operator? No [facility] MYCHART ZOOM MESSAGE Question 03/16/2024 [...] Score (range: 0 - 47) 14 15 [facility] DOCUMENT/IMAGE UPLOAD Question 03/16/2024 7:51 PM EDT [...] of Right Forearm or Lower Left Leg. [facility] PROMIS 10 ADULT SHORT FORM V1.0 GLOBAL [...] problems such as feeling anxious,depressed or irritable? In the past 7 days, how would you rate your fatigue on average? Moderate In the past 7 days, how would you rate your pain on average? 6 Abnormal PROMIS Adult Short Form-Global Health Score (Physical) (range: 16 - 68) 32.4 (Poor) Abnormal PROMIS Adult Short Form-Global Health Score (Mental) (range: 21 - 68) Incomplete [facility] Promis Gh Physical Score Compared To Last [...] Strongly Agree documented in this encounterUniversity Hospitals Portage Medical Center10-26-2024 NoteTrihealth10-26-2024 Instructions* Patient Instructions* Lynne Ni MD - 03/18/2024 7:31 AM [...] (200mg) daily with a meal Please see software recruiter every 6-12months while on Hydroxychloroquine. 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 daily [...] touching your toes, sit-ups, using row machine hand bookbinder pain recommendations per primary care provider/pain clinic [...] activities immediately. documented in this encounterUniversity Hospitals Portage Medical Center10-25-2024 Telephone encounter Note * Telephone Encounter - Lynne Ni MD - 03/17/2024 10:09 AM EDT Notify patient medication sent as requested Thank you. Patient's request for medication is as follows: Requested Prescriptions Pending Prescriptions Disp Refills predniSONE (DELTASONE) 10 mg tablet [Pharmacy Med Name: PREDNISONE 10 MG TABLET] 30 tablet 5 Sig: TAKE 1 TABLET BY MOUTH EVERY DAY WITH FOOD NO ORAL NSAIDS Prescription(s) as above. Please process accordingly. Lynne Ni MD [facility]10-25-2024 Miscellaneous Notes* Telephone Encounter - Lynne Ni MD - 03/17/2024 10:09 AM EDT Notify patient medication sent as [...] Telephone Encounter - Krista Braswell MA - 03/17/2024 8:10 AM EDT Images from the original note [...] VIDEO SPEC EST 03/18/2024 9:00 AM [facility] Last Ophthalmology Check for Plaquenil [...] Ordered Last Rel. CBC + DIFF [SQCBCDIF] 15 Every 3 months 06/02/24 06/03/23 02/21/24 Auth. provider: Vera Najera MD Assoc. diagnoses: Megaloblastic anemia due to vitamin B12 deficiency, Elevated sed rate COMP METABOLIC PANEL [SQCMP] 1/5 Every 3 months 06/02/24 06/03/23 02/21/24 Auth. provider: Vera Najera MD Assoc. diagnoses: Megaloblastic anemia due to vitamin B12 deficiency, Elevated sed rate IRON + TIBC [SQIRON] 1/ Every 3 months 06/02/24 06/03/23 02/21/24 Auth. provider: Vera Najera MD Assoc. diagnoses: Megaloblastic anemia due to vitamin B12 deficiency, Elevated sed rate FERRITIN BLD [SQFERR] 1/5 Every 3 months 06/02/24 06/03/2324 Auth. provider: Vera Najera MD Assoc. diagnoses: [...] [SQBLCUL] 01/27/24 04/27/24 01/27/24 Auth. provider: Alhaji Haed DO Assoc. diagnoses: Pseudomonas infection BLOOD CULTURE [SQBLCUL] 01/27/24 04/27/24 01/27/24 Auth. provider: Alhaji Head DO Assoc. diagnoses: Pseudomonas infection documented in this encounterUniversity Hospitals Portage Medical Center10-25-2024 Telephone encounter Note * Telephone Encounter - Krista Braswell MA - 03/17/2024 8:10 AM EDT Images from the original note [...] Department VIDEO SPEC EST 03/18/2024 9:00 AM [facility] Last Ophthalmology Check for Plaquenil [...] Elevated sed rate IRON + TIBC [SQIRON] 1/ Every 3 months 06/02/24 06/03/23 02/21/24 Auth. [...] B12 [SQB12] 03/20/24 06/19/24 12/27/23 Auth. provider: Liz, Juli M, PA-C Assoc. diagnoses: Megaloblastic anemia due to [...] Alhaji Head DO Assoc. diagnoses: Pseudomonas infection [facility]10-24-2024 History of Present illness Narrative* Luan Valdivia DO - 03/16/2024 11:30 AM EDT Reason for Appointment: Patient ID: Ariadna Haley [...] scalp in the shower topically 3-4 times aweek diclofenac sodium 1 % gel APPLY DIRECTED [...] Ambulatory Problems Diagnosis Date Noted Autoimmune disease ([facility]) 06/01/2023 Fibromyalgia 06/01/2023 Autonomic dysfunction 06/01/2023 Dizziness [...] Tobacco use disorder 07/06/2023 Cytomegalovirus infection (HCC) ([facility]) 07/06/2023 Depression, recurrent ([facility]) 06/09/2023 Discoid lupus erythematosus ([facility]) 02/14/2022 Disturbance of skin sensation 07/06/2023 Elevated sed rate 03/05/2021 High total serum IgM 03/05/2021 Enthesopathy of hip region 07/06/2023 Essential hypertension ([facility]) 06/09/2023 Excessive and frequent menstruation with irregular cycle 09/24/2022 Family history of Crohn's disease 03/05/2021 Hair loss 03/05/2021 Hyperlipidemia ([facility]) 05/31/2014 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 02/04/2023 Long-term use of high-risk medication 06/15/2022 Long-term use of Plaquenil 03/05/2021 LPRD (laryngopharyngeal reflux disease) 07/06/2023 Megaloblastic anemia due to vitamin B12 deficiency 03/04/2022 Myalgia 07/06/2023 Obesity, Class III, BMI 40-49.9 (morbid obesity) ([facility]) 09/07/2022 Obstructive sleep apnea syndrome 05/20/2022 Oral lesion 07/06/2023 Pain, hip 07/06/2023 Rash and nonspecific skin eruption 03/05/2021 Steroid-induced osteoporosis ([facility]) 02/04/2023 Somnolence, daytime 05/20/2022 Secondary osteoarthritis of multiple sites 03/05/2021 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 02/04/2023 Swelling of lymph nodes 03/05/2021 Vitamin D deficiency 03/06/2021 Vitamin B12 deficiency 05/31/2014 Pure hypercholesterolemia, unspecified ([facility]) 08/10/2023 Hoarse 08/10/2023 Thyroid nodule ([facility]) 08/10/2023 Shortness of breath 07/13/2023 Paroxysmal supraventricular tachycardia ([facility]) 07/13/2023 PAC (premature atrial contraction) 07/13/2023 Degenerative disc disease, lumbar 11/08/2023 Paresthesias 11/08/2023 Nipple discharge 11/15/2023 Irregular periods/menstrual cycles 11/15/2023 Facet arthritis of lumbar region 12/15/2023 Resolved Ambulatory Problems Diagnosis Date Noted No Resolved Ambulatory Problems Past Medical History: Diagnosis Date Cervical lymphadenopathy COVID-19 vaccine administered Difficulty walking Fatigue Fibromyalgia, primary GERD (gastroesophageal reflux disease) History of removal of cyst 2012 HTN (hypertension) ([facility]) Hx of abnormal cervical Pap smear Insulin resistance Laryngopharyngeal reflux disease Lupus Numbness Oral thrush Prediabetes Sleep apnea Weakness of limb HISTORY PAST MEDICAL HISTORY SOCIAL HISTORY Past Medical History: Diagnosis Date Anxiety Cervical lymphadenopathy Chronic laryngopharyngitis COVID-19 vaccine administered x 2 ([employer]) Difficulty walking Fatigue Fibromyalgia, primary GERD (gastroesophageal reflux disease) History of removal of cyst 2012 tailbone x2 HTN (hypertension) ([facility]) Hx of abnormal cervical Pap smear Hyperlipidemia ([facility]) Insulin resistance Laryngopharyngeal reflux disease Lupus Numbness [...] nursing note reviewed. Exam conducted with a studio set up worker present. Vitals: Estimated body mass index is [...] Disease with Dr. Kelsey and [facility]. Patient voiced that Dr. Kelsey recommended surgery, but patient feels that maybe excessive. [facility]ist at [facility] suggested monitoring. Patient has had mammogram. Patient does not put anything on her breast.Ruled out Mondor's Breast concerns. Discussed [place] Oil at night and Vitamin E lotion. Patient voiced that her breast feel brambila and heavier. Discussed growth of breast and proper support. Breastare not hot nor warm to the touch. Patient to obtain bilateral breast ultrasound. Patient to followup with routine annual appointment and as needed. Documented by Alicia Christine LPN on behalf of: Luan Valdivia DO documented in this encounterMissouri Southern [id number] NoteTrihealth10-16-2024 NoteBE[facility] Note Chief Complaint: New patient here to establish care. Ref from Gay Enciso CNP for hypertension. Former [facility] cardiology patient. Had echo a few weeks ago at [facility]. Says her BP is very low [...] past several months. She has seen 2-3 case management associate in the past. She has undergone a [...] on any stimulants including caffeinated beverages, alcohol, [id number] Sudafed etc. If her symptoms of palpitations persist, particular if she has lightheadedness or dizziness, head upright tilt table test may be reasonable to evaluate for possible dysautonomia's I discussed the side effects and risks of long-term steroid therapy and recommended she discuss with her technology recruiter weaning off soon as possible Given her morbid obesity, her current symptoms and comorbidities are likely related to excessive weight: I encouraged physical activity, attempts to lose weigh (more content not included)...[facility] 03-07-2024 NoteTrihealth10-15-2024 History of Present illness Narrative* Lee Friedman - 03/07/2024 8:35 AM EDT CMN RECEIVED BY [facility] VIA FAX, COMPLETED, AND PLACED IN PROVIDER MAILBOX FOR SIGNATURE Lee Friedman Coordinator III 03.07.2024 [employer] SENDING CMN: Josh SIGNED AND DATED CMN, FAXED TO DME & CONFIRMATION PAGE RECEIVED: 03.07.2024 documented in this encounterUniversity Hospitals Portage Medical Center10-01-2024 Telephone encounter Note * Telephone Encounter - Luda Vargas - 02/22/2024 9:54 AM EDT Received a call from PT transferred over from the scheduling line for education/questions. Answered PT question that I can see her referral is for Eds, and set appropriate expectations for her visit. She expressed understanding. We reviewed that her son has had negative testing for Marfanssyndrome, and her daughter is now following with [...] with her previously in 2021. PT stated thatshe is 'too terrified to drive that far to [facility].' Further reviewed the reasoning behind the visit needing to be in-person and stated that I would have our striker off reach out if she is willingto accept an in-person appt. PT requested that I review with our clinical team if this can be a VV before she schedules. I let her know I will do so and be in touch. She had no further questions at this time. Luda Vargas Genetic Counseling Private Advisor Additional: see [facility] for documentation of scheduling and cancellation with genetics in 2021 [facility]10-01-2024 Miscellaneous Notes* Telephone Encounter - Luda Vargas - 02/22/2024 9:54 AM EDT Received a call from PT transferred over from the scheduling line for education/questions. Answered PT question that I can see her referral is for Eds, and set appropriate expectations for her visit. She expressed understanding. We reviewed that her son has had negative testing for Marfanssyndrome, and her daughter is now following with [...] with her previously in 2021. PT stated thatmayo is 'too terrified to drive that far to [place].' Further reviewed the reasoning behind the visit needing to be in-person and stated that I would have our striker off reach out if she is willingto accept an in-person appt. PT requested that I review with our clinical team if this can be a VV before she schedules. I let her know I will do so and be in touch. She had no further questions at this time. Luda Vargas Genetic Counseling Private Advisor Additional: see [facility] for documentation of scheduling and cancellation with genetics in 2021 documented in this encounterUniversity Hospitals Portage Medical Center09-30-2024 Nurse Note* Kenzie Shannon MA - 02/21/2024 11:13 AM EDT Patient Identification confirmed: yes. Injection given and documented on MAR per provider order. Kenzie Shannon MA [facility]09-30-2024 Nurse Note* Kenzie Shannon MA - 02/21/2024 11:13 AM EDT Patient Identification confirmed: yes. Injection given and documented on MAR per provider order. Kenzie Shannon MA documented in this encounterUniversity Hospitals Portage Medical Center09-27-2024 Telephone encounter Note * Telephone Encounter - Sherrie Jimenes - 02/18/2024 1:26 PM EDT Patient is calling the [facility] office requesting Dr. Ni to place a referral to genetics. Please advise. [facility]09-27-2024 Miscellaneous Notes* Telephone Encounter - Sherrie Jimenes - 02/18/2024 1:26 PM EDT Patient is calling the [place] office requesting Dr. Ni to place a referral to genetics. Please advise. documented in this encounterUniversity Hospitals Portage Medical Center09-24-2024 Telephone encounter Note * Telephone Encounter - Hansa Javed LPN - 02/15/2024 9:49 AM EDT PAP ORDER FAXED TO [facility] WITH DEMOGRAPHICS, OFFICE NOTES WITH CONFIRMATON NOTED. [facility]09-24-2024 Miscellaneous Notes* Telephone Encounter - Hansa Javed LPN - 02/15/2024 9:49 AM EDT PAP ORDER FAXED TO [facility] WITH DEMOGRAPHICS, OFFICE NOTES WITH CONFIRMATON NOTED. documented in this encounterUniversity Hospitals Portage Medical Center09-23-2024 History of Present illness Narrative* Elton (Backfiller)Luda - 02/14/2024 2:32 PM EDT [facility] Refill Assessment Medication(s): Benlysta Patient's [...] progressing towards achieving therapeutic goals based on medication- specific laboratory parameters, disease state markers and outcomes. Office/provider notes have been reviewed prior to dispensing the medication. 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 [facility] SPECIALTY CLINICAL ASSESSMENT [...] efficacy and/or no longer tolerated. Luda Conde [facility] [phone] documented in this encounterUniversity Hospitals Portage Medical Center09-23-2024 NoteTrihealth09-23-2024 History of Present illness Narrative* Elton EpsteinZoomio HoldingLuda Benz - 02/14/2024 2:26 PM EDT Benefits investigation was conducted, indicating that a re-authorization is required for [employer]. PA was initiated and pending review. Plan Name: Keesha CoverMyMeds Balderrama: [id number] Luda Conde [facility] [phone] documented in this encounterUniversity Hospitals Portage Medical Center09-23-2024 NoteTrihealth09-23-2024 NoteTrihealth09-23-2024 Instructions* Patient Instructions* Lexus Heck APRN.MANAGER INTELLIGENCE - 02/14/2024 8:03 AM EDT Images from the original note were not included. Your most recent body mass index (BMI) that we have on record is 43.08 kg/m2. Obstructive sleep apnea (JOSE RAFAEL) worsens with an increase in weight; reduction in weight may improve or resolve your JOSE RAFAEL. Ifyou are not already seeking treatment, there are resources available at the [facility] such as a nutrition consultation or referral to weight management programs at our [facility]. Please let us know if we can [...] your deductible,co-payments, and out of pocket expenses. DME: Josh [phone] - Remember to clean your mask and equipment regularly, as directed. - Avoid use of ozone hotbed operator, SoClean devices, or UV cleaning devices - Avoid using alcohol or alcohol-containing products on your mask, as this may compromise the integrity of the mask materials and contribute to leak issues - Use only baby shampoo and water, mild dish soap (Dionne) and water, or CPAP- specific wipes to cleanyour supplies. Any appointments can be scheduled through the central scheduling system for the [facility] at [phone]. [facility] now offers direct scheduling for patients to schedule appointments. Virtual visits are also available. Call the office at [phone], option #5 for questions. documented in this encounterUniversity Hospitals Portage Medical Center09-23-2024 History of Present illness Narrative* Lexus Heck APRN.CNP - 02/14/2024 8:00 AM EDT Images from the original note were not included. [facility] Virtual Visit Follow up/ Established patient visit Date of last visit : 07/27/2022 I have communicated my name and active licensure. The patient's identity and physical location wereverified at the time of this visit. Either the patient or their legal branch service representative has been informed of the risks and benefits of -- and alternatives to -- treatment through a remote evaluation andconsents to proceed with the evaluation remotely. IMPRESSION/PLAN: [...] Return Visit in 6 months. Lexus Heck APRN.MANAGER INTELLIGENCE Interval history : Here for follow up for sleep apnea management. SLEEP APNEA Sleep apnea type : JOSE RAFAEL Most Recent Apnea-Hypopnea Index (AHI): 5.3 (HSAT scored 4 %) Treatment : PAP therapy DME: Josh [place] fax: [phone] DME ph: [phone] PAP History: Current PAP settin-15 cm H2O. [...] are sorted in reverse-chronological order 04/12/2022 07/23/2022 Jarratt Sleepiness Scale Score 4 (No clinically significant [...] 50. Five points is a clinicallymeaningful difference.) Physical T-Score 29.6 29.6 32.4 Mental [...] - Follow up 12 months. Lexus Heck APRN.MANAGER INTELLIGENCE documented in this encounterUniversity Hospitals Portage Medical Center09-23-2024 NoteTrihealth09-18-2024 History of Present illness Narrative* Zita Rogers NP - 02/09/2024 8:00 AM EDT Images from the original note were not included. CHIEF COMPLAINT REASON FOR VISIT : leg pain HPI: Ariadna Haley is a 43 y.o. female who presents for [facility] audiovisit. She is at home. She consents to visit. She was started norvasc by another provider but did not take it. She is havingpain in arms and legs but not color [...] affected areas on the body and rinse fromthe neck down, 2 times a week avoiding the face, 30 day supply clindamycin (Clindagel) 1 % gel APPLY TO AFFECTED AREA DAILY Clobetasol Propionate 0.05 % shampoo 1 application to the scalp in the shower topically 3-4 times aweek dexAMETHasone (Decadron) 2 MG tablet 2mg 3 [...] Chronic laryngopharyngitis COVID-19 vaccine administered x 2 ([employer]) Difficulty walking Fatigue Fibromyalgia, primary GERD (gastroesophageal reflux disease) History of removal of cyst 2013 tailbone x2 HTN (hypertension) ([facility]) Hx of abnormal cervical Pap smear Hyperlipidemia (CMS/HCC) Insulin resistance Laryngopharyngeal reflux disease Lupus (CMS/HCC) Numbness Oral lesion Oral thrush Prediabetes Sleep [...] lung issue, 3 daughters Diabetes Maternal Grandmother Cleginnygiovany Heart failure Maternal Grandmother Jose Albertoura Rheum arthritis Maternal Grandmother Lisandro Depression: Not at risk (12/27/2023) [facility] PHQ-2 PHQ-2 score: 1 REVIEW OF SYMPTOMS: [...] in the morning and 1 tablet (5 mg)in the evening and 1 tablet (5 mg) before bedtime. Degenerative disc disease, lumbar - baclofen (Lioresal) 5 MG tablet; Take 1 tablet (5 mg) by mouth in the morning and 1 tablet (5 mg)in the evening and 1 tablet (5 mg) before bedtime. Cervical radiculopathy at C5 - baclofen (Lioresal) 5 MG tablet; Take 1 tablet (5 mg) by mouth in the morning and 1 tablet (5 mg)in the evening and 1 tablet (5 mg) before bedtime. 43 year old female with arm pain and leg pain described as cold and numbness. Another provider started her on norvasc for potential Raynauds as she does have history of lupus and is cigarette smoker.Her blood pressure runs 100/50s and she was [...] I want her to continue Dr. Kang's r ecommendation for medical branch blocks and possible RFA. This was discussed with patient, all questions answered. Total time 30 minutes spent reviewing records, performing medically appropriate exam, counseling , education, ordering medication, tests, and/or procedures, documenting health information into the health record, communicating results to the patient, and coordinating care. documented in this encounterMissouri Southern [id number] NoteHNO ID: [id number] Author: ALHAJI HEAD, DO Service: ? Author Type: Physician Type: Progress Notes Filed: 01/27/2024 16:54 Note Text: VIRTUAL VISIT PROGRESS NOTE This is a virtual visit using Ever[employer] Video Visit. It required patient-provider interaction for the medical decision making as documented below. I have communicated my name and active licensure. The patient's identity and physical location were verified at the time of this visit. Either the patient or their legal branch service representative has been informed of the [...] of green drainage. She saw her OB/ urogynecology physician. This was thought to be secondary to [...] date: Obesity, unspecified No date: Pain, hip 08/26/14: Physical exam, annual No date: Pilonidal cyst [...] SOB/WHEEZING, and NO DYSPHAG (more content not included)...[facility]09-05-2024 History of Present illness Narrative* Alhaji Head DO - 01/27/2024 10:10 AM EDT Images from the original note were not included. VIRTUAL VISIT PROGRESS NOTE This is a virtual visit using [employer] Video Visit. It required patient- provider interaction for the medical decision making as documented below. I have communicated my name and active licensure. The patient's identity and physical location wereverified at the time of this visit. Either the patient or their legal branch service representative has been informed of the risks and benefits of -- and alternatives to -- treatment through a remote evaluation andconsents to proceed with the evaluation remotely. Ariadna Haley is a 43 year old female seen for nipple discharge. She started having a scan amount of nipple discharge from bilateral nipples for about 1 year. She does not have spontaneous drainage but only nipple drainage when she squeezes the nipple. This produces only a very tiny amount of green drainage. She saw her OB/ urogynecology physician. This was thought to be secondary to [...] not have localized signs or symptoms of localinfection and systemic symptoms of chronic fatigue and malaise have not changed to suggest acute infection. Also discussed po cipro treatment vs IV antibiotics. She has concerns regarding recurrent C. Diff and drug drug interactions with cipro. With shared decision making, we have decided to closely monitor nipple drainage for localized signsand symptoms of infection. Also with new or changes systemic symptoms of infection. Blood cultures ordered out an abundance of caution Nystatin ordered for oral thrush Alhaji Head DO documented in this encounterUniversity Hospitals Port[facility]09-03-2024 Nurse Note* Margret Cuenca MA - 01/25/2024 11:30 AM EDT Patient Identification confirmed: yes. Injection given and documented on JUL per provider order. Margret Cuenca MA [facility]09-03-2024 Nurse Note* Margret Cuenca MA - 01/25/2024 11:30 AM EDT Patient Identification confirmed: yes. Injection given and documented on JUL per provider order. Margret Cuenca MA documented in this encounterUniversity Hospitals Portage Medical Center08-27-2024 History of Present illness Narrative* Arianne Mckinley - 01/18/2024 12:12 PM EDT [facility] Ref[facility] Assessment Medication(s): Benlysta Patient's [...] progressing towards achieving therapeutic goals based on medication- specific laboratory parameters, disease state markers and outcomes. 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 [facility] SPECIALTY CLINICAL ASSESSMENT [...] no longer tolerated. Arianne Mckinley CPhT, Inflammatory/Allergy [facility] [phone] documented in this encounterUniversity Hospitals Portage Medical Center08-27-2024 NoteTrihealth08-21-2024 Telephone encounter Note* Telephone Encounter - Krista Fonseca MA - 01/12/2024 10:45 AM EDT Pt has been notified via [employer]. [facility]08-21-2024 Miscellaneous Notes* Telephone Encounter - Krista Fonseca MA - 01/12/2024 10:45 AM EDT Pt has been notified via [employer]. * Telephone Encounter - Lynne Ni MD - 01/12/2024 10:03 AM EDT Please call patient. Thank you for [...] Lynne Ni MD * Telephone Encounter - Laura BeatrizCARLIN - 01/12/2024 7:25 AM EDT Images from the original note [...] FERRITIN [SQFERR] 03/20/24 06/19/24 12/27/23 Auth. provider: Liz, Juli M, PA-C Assoc. diagnoses: Megaloblastic anemia due to [...] Assoc. diagnoses: Screening-pulmonary TB documented in this encounterUniversity Hospitals Portage Medical Center08-21-2024 Telephone encounter Note * Telephone Encounter - Lynne Ni MD - 01/12/2024 10:03 AM EDT Please call patient. Thank you for [...] process accordingly. Lynne Ni MD [facility]08-21-2024 Telephone encounter Note* Telephone Encounter - Beatriz Sanchez LPN - 01/12/2024 7:25 AM EDT Images from the original note [...] BLD [SQFERR] 2/5 Every 3 months 06/02/24 06/03/2324 Auth. provider: Vera Najera MD Assoc. diagnoses: [...] Lynne Ni MD Assoc. diagnoses: Screening-pulmonary TB [facility]08-08-2024 Telephone encounter Note* Telephone Encounter - Krista Braswell MA - 12/30/2023 1:34 PM EDT Spoke to pt aware of results and recommendations. [facility]08-08-2024 Miscellaneous Notes* Telephone Encounter - Krista Fonseca MA - 12/30/2023 1:34 PM EDT Spoke to pt aware of results and recommendations. * Telephone Encounter - Lynne Ni MD - 12/30/2023 12:31 PM EDT Please Call patient if MyChart [...] vitamin b12 every month documented in this encounterUniversity Hospitals Portage Medical Center08-08-2024 Telephone encounter Note * Telephone Encounter - Lynne Ni MD - 12/30/2023 12:31 PM EDT Please Call patient if MyChart [...] likely reactive, continue vitamin b12 every month [facility]08-05-2024 Telephone encounter Note* Telephone Encounter - Enma Hamm RN - 12/27/2023 12:49 PM EDT Pt informed of MM message and denies any questions, needs or concerns at this time. Appointments verified. Enma Hamm RN [facility]08-05-2024 Miscellaneous Notes* Telephone Encounter - Enma Hamm RN - 12/27/2023 12:49 PM EDT Pt informed of MM message and denies any questions, needs or concerns at this time. Appointments verified. Enma Hamm RN * Telephone Encounter - Juli Narayanan PA-C - 12/27/2023 12:44 PM EDT Please call and inform the patient that I reviewed her [facility] records and there is no evidence of a blood clot and she does not need to be on blood thinners. Juli Narayanan PA-C documented in this encounterUniversity Hospitals Portage Medical Center08-05-2024 Telephone encounter Note * Telephone Encounter - Juli Narayanan PA-C - 12/27/2023 12:44 PM EDT Please call and inform the patient that I reviewed her [facility] records and there is no evidence of a blood clot and she does not need to be on blood thinners. Juli Narayanan PA-C [facility] Work Phone: [phone] Nurse Note* Margret Cuenca MA - 12/27/2023 11:44 AM EDT Patient Identification confirmed: yes. Injection given and documented on MAR per provider order. Margret Cuenca MA [facility]08-05-2024 Nurse Note* Margret Cuenca MA - 12/27/2023 11:44 AM EDT Patient Identification confirmed: yes. Injection given and documented on MAR per provider order. Margret Cuenca MA documented in this encounterUniversity Hospitals Portage Medical Center08-05-2024 History of Present illness Narrative* Juli Narayanan PA-C - 12/27/2023 11:30 AM EDT Images from the original note were not included. NAME: Ariadna Haley CLINIC NO.: [id number] DATE OF SERVICE: December 27, 2023 (Liz) Some elements in this clinic note that are critical to medical decision making have been carefully reviewed and included from a prior clinic note dated: September 09, 2023 (Marquis) Referring Provider: Dr. Manuel Ferris Additional Clinicians involved in Ariadna De Pazlazarofrancisco javier's care: DIAGNOSIS: Multiple symptoms ASSESSMENT: 43 year [...] labs 1 week before. Request records from [facility] from [facility]/elevated d-dimer Frequent infections and [...] Seeing infectious disease. Also has some rare infectionin her breast that ID does not want [...] lower lip done 2 days ago at [facility] - awaiting results. B12 helps [...] injections. 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 She has been told they [...] which included preparing to see the patient, ltft-vy-uzpe patient care, completing clinical documentation, obtaining and/or reviewing separately obtained history, performing a medically appropriate examination, counseling and educating the pat ient/family/caregiver, ordering medications, tests, or procedures, communicating with other HCPs (not separately reported), independently interpreting results (not separately reported), communicatingresults to the patient/family/caregiver, and care coordination (not separately reported). Juli Narayanan PA-C Hematology and Oncology Services Provided at: [place], [place] CC: Manuel Ferris MD [address] [facility] [address] documented in this encounterUniversity Hospitals Portage Medical Center08-05-2024 NoteTrihealth07-22-2024 History of Present illness Narrative* Elton (Backfiller)Luda - 12/13/2023 11:44 AM EDT [facility] Medication(s): Benlysta Patient's [...] progressing towards achieving therapeutic goals based on medication- specific laboratory parameters, disease state markers and outcomes. 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 [facility] SPECIALTY CLINICAL ASSESSMENT - INFLAMMATORY CONDITIONS V6: Assessment to use: Refill [facility] VACCINE INFORMATION [facility] TREATMENT PLAN INFORMATION [facility] [phone] documented in this encounterUniversity Hospitals Portage Medical Center07-22-2024 NoteTrihealth07-08-2024 Nurse Note* Stacy Gutiérrez MA - 11/29/2023 1:47 PM EDT Patient Identification confirmed: yes. Injection given and documented on JUL per provider order. Stacy Gutiérrez MA [facility]07-08-2024 Nurse Note* Stacy Gutiérrez MA - 11/29/2023 1:47 PM EDT Patient Identification confirmed: yes. Injection given and documented on JUL per provider order. Stacy Gutiérrez MA documented in this encounterUniversity Hospitals Portage Medical Center07-05-2024 Telephone encounter Note * Telephone Encounter - Katherin Schneider RN - 11/26/2023 11:34 AM EDT Please sign pended script Maryam Schneider RN [facility]07-05-2024 Miscellaneous Notes* Telephone Encounter - Katherin Schneider RN - 11/26/2023 11:34 AM EDT Please sign pended script Maryam Schneider RN documented in this encounterUniversity Hospitals Portage Medical Center06-24-2024 History of Present illness Narrative* Aidee Quintanilla [facility] - 11/15/2023 1:00 PM EDT [facility] Medication(s): Benlysta Patient's [...] progressing towards achieving therapeutic goals based on medication- specific laboratory parameters, disease state markers and outcomes. 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 [facility] Visit Assessment - [...] N/A Assessment of efficacy: Yes Aidee Quintanilla, PharmD Clinical Pharmacist, [employer] [facility] ; Pool: P [facility] Pool #: [id number] documented in this encounterUniversity Hospitals Portage Medical Center06-24-2024 NoteTrihealth06-20-2024 Telephone encounter Note* Telephone Encounter - Lynne Ni MD - 11/11/2023 4:14 PM EDT Notify patient medication sent as requested Thank you. Patient's request for medication is as follows: Requested Prescriptions Pending Prescriptions Disp Refills azaTHIOprine (IMURAN) 50 mg tablet 270 tablet 1 Sig: TAKE 3 TABLETS BY MOUTH DAILY WITH FOOD. HOLD IF ON ANTIBIOTICS OR ILL. Prescription(s) as above. Please process accordingly. Lynne Ni MD [facility]06-20-2024 Miscellaneous Notes* Telephone Encounter - Lynne Ni MD - 11/11/2023 4:14 PM EDT Notify patient medication sent as requested Thank you. Patient's request for medication is as follows: Requested Prescriptions Pending Prescriptions Disp Refills azaTHIOprine (IMURAN) 50 mg tablet 270 tablet 1 Sig: TAKE 3 TABLETS BY MOUTH DAILY WITH FOOD. HOLD IF ON ANTIBIOTICS OR ILL. Prescription(s) as above. Please process accordingly. Lynne Ni MD * Telephone Encounter - Shantel Higgins MA - 11/11/2023 3:29 PM EDT Images from the original note [...] Elevated LFTs COMPLETE BLOOD COUNT [SQCBC] 12/04/23 09/03/2409/03/24 Auth. provider: Lynne Ni MD Assoc. diagnoses: [...] High total serum IgM documented in this encounterUniversity Hospitals Portage Medical Center06-20-2024 Telephone encounter Note * Telephone Encounter - Shantel Higgins MA - 11/11/2023 3:29 PM EDT Images from the original note [...] deficiency, High total serum IgM [facility]06-06-2024 Telephone encounter Note* Telephone Encounter - Karina Morales RN - 10/28/2023 1:33 PM EDT Pt read [employer] message. [facility]06-06-2024 Miscellaneous Notes* Telephone Encounter - Karina Morales RN - 10/28/2023 1:33 PM EDT Pt read [employer] message. * Telephone Encounter - Lynne Ni MD - 10/28/2023 11:43 AM EDT Please call patient. Thank you for [...] soon! Dr.Tsai Harshal :) documented in this encounterUniversity Hospitals Portage Medical Center06-06-2024 Telephone encounter Note * Telephone Encounter - Lynne Ni MD - 10/28/2023 11:43 AM EDT Please call patient. Thank you for [...] you feel better soon! Dr.Tsai Harshal :) [facility]06-05-2024 Nurse Note* Margret Cuenca MA - 10/27/2023 2:43 PM EDT Patient Identification confirmed: yes. Injection given and documented on MAR per provider order. Margret Cuenca MA [facility]06-05-2024 Nurse Note* Margret Cuenca MA - 10/27/2023 2:43 PM EDT Patient Identification confirmed: yes. Injection given and documented on MAR per provider order. Margret Cuenca MA documented in this encounterUniversity Hospitals Portage Medical Center05-21-2024 NoteTrihealth05-14-2024 History of Present illness Narrative* Lynne Ni MD - 10/05/2023 7:59 AM EDT THIS IS A AMBULATORY VIRTUAL [...] visit. Either the patient or their legal branch service representative has been informed of the [...] due to pain. fingers swelling. Chronic current painin entire body, low back, legs, hands, fingers, [...] photoprotection, see ophthalmology, steroids/prednisone 10mg daily/ per p rimary care provider/try weaning off, see derm/?eval recurrent boils, see spine/pain clinic/improved with lyrica/may increase if needed, see derm, start prn heat/ice/otc arthritis creams, low impact weightbearing exercise as tolerated, see neurology/on metoprolol for POTs, avoid aggravating triggers, correction pain recommendations per primary care provider/pain clinic/patient currently declined cymbalta/lyrica, see ortho, prn brace, start fall precautions, 9/14/23:due for labs 04/2023.reports heartburn, hairloss, numbness, swollen [...] Due for eye exam. Labs sent to [facility]/completed in 06/2021 (no results faxed to office, [...] pain: yes H/o precedent/frequent infection(s): as above Enthesopathy/Pike's/heel/plantar tenderness: hands random painful/tingling Skin thickening, psoriasis, [...] COVID-19 original vaccine, age 12+ yr, monovalent ([employer] - PURPLE TOP) 09/28/2020 10/19/2020 05/26/2021 COVID-19 vaccine, age 12+ yr, 2022- season ([employer]) 02/23/2023 COVID-19 vaccine, age 12+ yr, bivalent ([employer]) 02/08/2022 Pneumovax no Flu shot no Tetanus [...] (33);NL cbc, cmp, negative hla b27; Outside [place] 06/2021 low vitamin D 16, vitamin b12-307;high [...] due to pain. fingers swelling. Chronic current painin entire body, low back, legs, hands, fingers, [...] correction steroids/abnormal bmd, take vitamin D script once [...] neurology/on metoprolol for POTs, avoid aggravating triggers, hand bookbinder pain recommendations per primary care provider/pain clinic/patient currently declined cymbalta/l yrica, see ortho, prn brace, start fall precautions, [...] (200mg) daily with a meal Please see software recruiter every 6-12months while on Hydroxychloroquine. Start 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 [...] touching your toes, sit-ups, using row machine correction pain recommendations per primary care provider/pain clinic [...] video & audio (virtual) or phone or wfre-[id number] patient care, completing clinical documentation, obtaining and/or [...] Workers' Compensation? No Do you need an white sugar pan tank operator? No [facility] MYCHART ZOOM MESSAGE Question 2023 [...] problems such as feeling anxious,depressed or irritable? Sometimes Abnormal Sometimes Abnormal Rarely [...] 3 (WITHIN +/- 5) documented in this encounterUniversity Hospitals Portage Medical Center05-14-2024 NoteTrihealth05-09-2024 Nurse Note* Renea Schneider MA - 09/30/2023 10:53 AM EDT Patient Identification confirmed: yes. Injection given and documented on JUL per provider order. Renea Schneider MA [facility]05-01-2024 Evaluation note* Author Ketty [facility] Authored September 22, 2023 2:55pm 42-year-old female [...] switch omeprazole to pantoprazole and monitor symptoms [facility] Work Phone: 1(501) 985-246104-22-2024 NoteTrihealth04-18-2024 Instructions* Patient Instructions* Vera Najera MD - 09/09/2023 4:47 PM EDT Follow up in 13 Weeks - labs 1 week before. B12 shot every 4 weeks. Continue Folic acid. documented in this encounterUniversity Hospitals Portage Medical Center04-18-2024 History of Present illness Narrative* Vera Najera MD - 09/09/2023 4:30 PM EDT NAME: Ariadna Haley [facility] NO[facility] [id number] DATE OF SERVICE: September 09, 2023 (Marquis) Some elements in this clinic note that are critical to medical decision making have been carefully reviewed and included from a prior clinic note dated: June 10, 2023 (Marquis) Referring Provider: Dr. Manuel Ferris Additional Clinicians involved in Ariadna Haley's care: VIRTUAL VISIT PROGRESS NOTE This is a virtual visit using [employer] Video Call. It required patient- provider interaction for the medical decision making as documented below. I have communicated my name and active licensure. The patient's identity and physical location wereverified at the time of this visit. Either the patient or their legal branch service representative has been informed of the [...] lower lip done 2 days ago at [facility] - awaiting results. B12 helps [...] injections. 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 She has been told they [...] CPE Hematology and Oncology Services Provided at: [place], [place] CC: Manuel Ferris MD [address] [facility] [address] documented in this encounterUniversity Hospitals Portage Medical Center04-18-2024 NoteTrihealth04-15-2024 Miscellaneous Notes* Telephone Encounter - Maynor Bryson MA - 09/06/2023 7:21 AM EDT patient has viewed the [employer] message per Emair. * Telephone Encounter - Lynne Ni MD - 09/04/2023 6:30 PM EDT Please Call patient if OLXt note not read to review results/released to My Chart if tests completed at F: Improved/Borderline wbc and one inflammatory test- will [...] accordingly. Lynne Ni MD documented in this [facility]04-09-2024 Nurse Note* Margret Cuenca MA - 08/31/2023 10:35 AM EDT Patient Identification confirmed: yes. Injection given and documented on JUL per provider order. Margret Cuenca MA documented in this [facility]04-01-2024 Nurse Note* Renea Schneider MA - 09/30/2023 10:53 AM EDT Patient Identification confirmed: yes. Injection given and documented on JUL per provider order. Renea Schneider MA documented in this [facility]03-21-2024 [facility]03-14-2024 Nurse Note* Margret Cuenca - 08/05/2023 11:16 AM EDT Patient Identification confirmed: yes. Injection given and documented on JUL per provider order. Margret Cuenca documented in this [facility]02-20-2024 Nurse Note* Margret Cuenca - 07/13/2023 12:01 PM EST Patient Identification confirmed: yes. Injection given and documented on JUL per provider order. Margret Cuenca documented in this [facility]02-20-2024 History of Present illness Narrative* Lois Holm [...] and is being cared for at the [facility] utilizing steroids, Plaquenil and injectable medic ation(Benlystal). The patient record indicating having had cardiac catheterization in [place] 3 years ago which was normal. I have the report available for my review. [facility] [...] lupus being treated by rheumatology at the [facility] on steroids, Plaquenil and monoclonal antibody [...] , Rfl: ergocalciferol (Vitamin D-2) 1.25 MG (27346 UT) capsule, Take 1 capsule (50,000 Units) [...] signing my name below, abril Dorantes , Scribe attest that this documentation has been prepared under the direction and in the presence of Lois Holm MD. Provider Attestation - Scribe documentation All medical record entries made by the Scribe were at my direction and personally dictated by me. Aliviaave reviewed the chart and agree that the record accurately reflects my personal performance of the history, physical exam, discussion and plan. documented in this encounterAultman [facility] Work Phone: 1(914) 517-280302-20-2024 Instructions* Patient Instructions* Lila Tejeda LPN - [...] time of your visit. documented in this encounterAultman Orrville [facility] Work Phone: 1(849) 214-357202-13-2024 History of Present illness Narrative* Kade Richardson [...] , Rfl: ergocalciferol (Vitamin D2) 1.25 MG (27370 UT) capsule, Take 50,000 Units by mouth [...] Chronic laryngopharyngitis COVID-19 vaccine administered x 2 ([employer]) History of removal of cyst 2013 tailbone [...] reflexes: Stu's absent. Ankle clonus absent. Coordination Powzao-gx-hfob, rapid alternating movements and yhjd-gc-xfyz normal bilaterally without dysmetria. Gait Normal casual, toe, heel and tandem gait. Romberg is absent. Assessment/Plan Diagnoses and all orders for this visit: Autoimmune disease ([facility]) - Protein electrophoresis, serum; Future - Protein [...] Lyrica 100 mg TID. She is on nkidaiodyb16 mg once daily. Increase prednisone 10 mg BID for 10 days. documented in this encounterMissouri Southern [id number] History of Present illness Narrative* Michelle Surya Jasmine, GORE STITCHER-MANAGER INTELLIGENCE - 06/09/2023 8:30 AM EST Ariadna Haley is a 42 y.o. female that presents to the office today for new patient evaluation asself referral for palpitations and elevated heart rates. She has a PMH of HTN, HLD, tachycardia, anemia, JOSE RAFAEL with CPAP compliance, lupus, autonomic dysfunction, arthritis, chronic back pain. She has undergone cardiac workup in the past in [place] as noted below. She also states that she follows withNeurology for possible POTS syndrome. Admits to daily tobacco use, 1 pack of cigarettes per day. Denies vaping, ETOH, recreational drugs. Admits to drinking approximately 1 pot of coffee per day. Denies daily exercise. 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 Family history negative [...] Anemia, unspecified Anxiety Autonomic dysfunction Depression, recurrent ([facility]) Discoid lupus erythematosus Chronic bilateral low back pain with bilateral sciatica Hyperlipidemia Obesity, Class III, BMI 40-49.9 (morbid obesity) ([facility]) Obstructive sleep apnea syndrome Arthritis Tachycardia Vitamin [...] , Rfl: ergocalciferol (Vitamin D-2) 1.25 MG (75015 UT) capsule, Take 1 capsule (50,000 Units) [...] Anemia, unspecified Anxiety Autonomic dysfunction Depression, recurrent ([facility]) Discoid lupus erythematosus Chronic bilateral low back pain with bilateral sciatica Hyperlipidemia Obesity, Class III, BMI 40-49.9 (morbid obesity) ([facility]) Obstructive sleep apnea syndrome Arthritis Tachycardia Vitamin [...] to prepare this document. documented in this [facility] Work Phone: 1(244) 632-764701-03-2024 Instructions* Patient Instructions* Christie Phan MD - 05/26/2023 5:43 PM EST Images from the original note were not included. https://Photos to Photos/tofu-bolognese/ https://nutritionstudies.org/snr-xn-vnlwghogo-kgpubsym-ee-yumlh-g-xnvfn-ibhi-randee ey-zpxvl-ytjuxttqb/ https://www.[employer]blog/plantbasedkids https://t-Art/drfan-zitah-yveb-for-kids/ https://Scienion/kxf-kz-oagjqgwxtu-itvn-jehk-kz-v-ezdtf-vksqk-diet/ WHAT TO EAT? Breakfast: Overnight Oats Base ingredients: 1/3 cup rolled oats, 1/3 cup plain almond milk, 1tsp kyle seeds. Optional add-ins: cinnamon, flax seeds, honey or maple syrup, nut butter, chopped nuts. Toppings: Any fresh fruit chopped. Mix together and place in refrigerator. Can make 5 at a time for the whole week. Homemade fresh oatmeal. Can also make in the crockpot. Scottish muffin/almond butter topped with fresh berries Scottish muffin, cooked egg/egg white, tomato, thin slice japanese cheese Fresh berries, hard boiled egg, whole wheat toast Plain yogurt topped with berries, unsalted nuts, drizzle of honey Whole grain toast/Scottish muffin topped with mashed avocado and tomatoes Lunch: Dinner leftovers packed in Tupperware, side of fruit Salad mixture topped with a protein (chick breast/tuna/hard boiled egg/beans), dressing and side offruit Dinner - Refer to plate merchandise planner pictures to help select foods and portion ratios of protein, vegetables/starches. Keep it simple and rotate your favorite meals. Sheet nix meals Soups Grilled protein/vegetables/side of starch (plate merchandise planner picture) Stir can with protein, mixed vegetables, and riced cauliflower or portion controlled whole grain rice. Make your own bowls - Trinidadian/Ivorian/ theme Backus with Zoodles (spiralized vegetable noodles). Roasted vegetable wraps Alter traditional recipes to reflect HIGH QUALITY ingredients in the right QUANTITIES. Snacks - portion controlled: Raw veggies (can have with hummus, mashed avocado, salsa). Unsalted nuts Fruit (1 serving). (optional side of peanut butter) Air pop popcorn Pease and low fat japanese cheese rolled up String cheese Protein balls (mix rolled oats, nut butter, flax seeds, dash almond milk). Beverages: Water Coffee, Hot tea Unsweetened ice tea EATING OUT: Research menu online, include nutritional information. Make your order decision before getting to restaurant. Stick to recommended portions (plate merchandise planner picture). Ask for substitutions or modifications. [...] baked potato, sprouted grain bread, chick peas https://www.[employer].com/article/3863646/sajbwxmgtagst-ckiy-rkim-for-beginners / https://www.eatingYummy Garden Kids Eatery.com/category/4274/rckictamdypmb-cean-eqgkah/ https://www.[employer].com/category/4300/btuhwvaraabez-raha-fzdt-plans/ My current favorite cookbooks are documented in this encounterUniversity Hospitals Portage Medical Center01-03-2024 History of Present illness Narrative* Christie Phan MD - 05/26/2023 5:00 PM EST Images from the original note were not included. [facility] Follow-Up Appointment [...] refer to nutrition to work towards a [facility] diet Plan Diagnoses and all orders for [...] the date of the service which included xuwq-bd-folj patient care, completing clinical documentation, performing a medically appropriate examination, counseling and educating the patient/family/caregiver, and ordering medications, tests, or procedures. Christie Phan MD, MA, [facility] Lifestyle Medicine Specialist documented in this encounterUniversity Hospitals Portage Medical Center12-04-2023 Miscellaneous Notes* Telephone Encounter - Renate Lawrence MA - 04/26/2023 5:26 PM EST Medication pending with new pharmacy information. documented in this encounterUniversity Hospitals Portage Medical Center12-04-2023 History of Present illness Narrative* Christie Phan MD - 04/26/2023 4:15 PM EST Images from the original note were not included. [facility] Virtual Follow-Up [...] the date of the service which included mwuh-dw-ddhm patient care, completing clinical documentation, performing a medically appropriate examination, counseling and educating the patient/family/caregiver, and ordering medications, tests, or procedures. I have communicated my name and active licensure. The patient's identity and physical location wereverified at the time of this visit. Either the patient or their legal branch service representative has been informed of the risks and benefits of -- and alternatives to -- treatment through a remote evaluation andconsents to proceed with the evaluation remotely. Christie Phan MD, MA, [facility] Lifestyle Medicine Specialist documented in this encounterUniversity Hospitals Portage Medical Center12-04-2023 Nurse Note* Renate Lawrence MA - 04/26/2023 2:46 PM EST Spoke to Ariadna Haley, confirmed patient is registered on [employer] and is prepared for their appointment. Confirmed the patient has updated medications, allergies, and questionnaires via [employer]. Informed patient if there is an issue with the connection, provider will send the patient a secure link. If provider is running late, patient should remain connected to the visit. Patient verbalized understanding. documented in this [facility]11-30-2023 Miscellaneous Notes* Telephone Encounter - Enma Hamm RN - 04/22/2023 3:48 PM EST Pt called for Iron results; possible need for transfusion. Pt aware no need for iron infusion at this time. Enma Hamm, RN documented in this [facility]11-24-2023 History of Present illness Narrative* Kenzie Shannon - 04/16/2023 10:55 AM EST Patient Identification confirmed: yes. Injection given and documented on JUL per provider order. Kenzie Shannon documented in this [facility]10-27-2023 History of Present illness Narrative* Kenzie Shannon - 03/19/2023 11:06 AM EDT Patient Identification confirmed: yes. Injection given and documented on JUL per provider order. Kenzie Shannon documented in this [facility]10-24-2023 History of Present illness Narrative* Marija Ziegler - 03/16/2023 10:13 AM EDT CMN RECEIVED BY [facility] VIA FAX, COMPLETED, AND PLACED IN PROVIDER MAILBOX FOR SIGNATURE On 2022 By Marija Ziegler Floor Surfacer II. [employer] SENDING CMN: JOSH SIGNED AND DATED CMN, FAXED TO DME & CONFIRMATION PAGE RECEIVED: 03.24.23 documented in this [facility]10-19-2023 History of Present illness Narrative* Beatriz Sanchez [...] Department: RHEUMATOLOGY documented in this encounterUniversity Hospitals Portage Medical Center10-18-2023 Miscellaneous Notes* Telephone Encounter - Christie Phan MD - 03/10/2023 2:18 PM EDT Spoke with patient. We stopped her trulicity because of side effects. She only took the cymbalta for a week. She will restart and we will see how she is doing in 2 months. Have also ordered insulin labs to check for insulin resistance. documented in this encounterUniversity Hospitals Portage Medical Center10-09-2023 Miscellaneous Notes* Telephone Encounter - Lynne Ni MD - 03/01/2023 3:27 PM EDT For chart: Eye exam 02/26/23 no ocular complication related to medication. * Telephone Encounter - Beatriz Sanchez LPN - 03/01/2023 2:38 PM EDT [facility] exam from [facility] Placed on your desk for review. documented in this encounterUniversity Hospitals Portage Medical Center09-29-2023 Nurse Note* Radha Kebede MA - 02/19/2023 11:48 AM EDT Patient Identification confirmed: yes. Injection given and documented on JUL per provider order. Radha Schofield MA documented in this encounterUniversity Hospitals Portage Medical Center09-29-2023 Instructions* Patient Instructions* Vera Najera MD - 02/19/2023 11:40 AM EDT B12 shot today and every 4 weeks. Continue Folic acid. Follow up in 8 Weeks - labs 1 week before. documented in this encounterUniversity Hospitals Portage Medical Center09-29-2023 History of Present illness Narrative* Vera Najera MD - 02/19/2023 11:32 AM EDT Images from the original note were not included. AMBULATORY TELEPHONE VISIT Ariadna Haley has consented to this telephone encounter. Persons Present: Patient and myself Chief Complaint/Reason: Anemia; To review recent blood work. HPI: Total Time Spent: 21 minutes Rebekah Rojas APRN.MANAGER INTELLIGENCE NAME: Ariadna Haley CLINIC NO.: [id number] DATE OF SERVICE: February 19, 2023 ([facility]) Some elements in this clinic note that are critical to medical decision making have been carefully reviewed and included from a prior clinic note dated: December 17, 2022 (Bob) & October 22, 2022 ([facility]) Referring Provider: Dr. Manuel Ferris Additional Clinicians [...] lower lip done 2 days ago at [facility] - awaiting results. B12 helps [...] injections. 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 She has been told they [...] which included preparing to see the patient, wwjm-li-wzpv patient care, completing clinical documentation, performing a medically appropriate examination, counseling and educating the patient/family/caregiver, ordering medications, tests, or p rocedures, and independently interpreting results (not separately reported). Vera Najera MD, CPE Hematology and Oncology Services Provided at: [place], [place] CC: Manuel Ferris MD [address] [address] documented in this encounterUniversity Hospitals Portage Medical Center09-26-2023 Miscellaneous Notes* Telephone Encounter - [...] RAYRAY INJECTION TEACHING 03/11/2023 7:30 AM [facility] VIDEO SPEC EST 08/12/2023 9:00 AM [facility] Last Ophthalmology Check for Plaquenil [...] D deficiency documented in this encounterUniversity Hospitals Portage Medical Center09-18-2023 Miscellaneous Notes* Telephone Encounter - [...] Ni MD documented in this encounterUniversity Hospitals Portage Medical Center09-14-2023 History of Present illness Narrative* Carlene Rendon - 02/04/2023 9:31 AM EDT [facility] received prescription(s) for Benlysta from Dr. Ni. Benefits investigation was conducted, indicating that a prior authorization is required by patients plan with [employer] [facility]. Encounter will be updated once prior authorization has been submitted by [facility]. Carlene Rendon CPhT [facility], Inflammatory P: [phone] F: [phone] documented in this encounterUniversity Hospitals Portage Medical Center09-14-2023 History of Present illness Narrative* [...] visit. Either the patient or their legal branch service representative has been informed of the [...] Due for eye exam. Labs sent to [facility]/completed in 06/2021 (no results faxed to office, but patient pulled up results on her phone). Chronic current pain in neck, flank area, mid back, knees, legs, arms, all over pain. Better with lyrica 75mg 3times a day. Reports pain 4-8/10. Couple hrs AM stiffness. COVID vaccine [employer] 09/28/20, 10/19/20, 05/26/21. Feels safe at home. [...] pain: yes H/o precedent/frequent infection(s): as above Enthesopathy/Pike's/heel/plantar tenderness: hands random painful/tingling Skin thickening, psoriasis, [...] COVID-19 original vaccine, age 12+ yr, monovalent ([employer] - PURPLE TOP) 09/28/2020 10/19/2020 05/26/2021 COVID-19 vaccine, age 12+ yr, bivalent ([employer]) 02/08/2022 Pneumovax no Flu shot no Tetanus [...] (33);NL cbc, cmp, negative hla b27; Outside [place] 06/2021 low vitamin D 16, vitamin b12-307;high [...] negative Sumaya's test, tinel's and phil tests [employer] JTS:no Tend. JTS: lumbar area, neck, knees, [...] osteoporosis I73.00 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 Ms. aHley is a 42 year old female with [...] measures, may consider osteoporosis treatment if on hand bookbinder steroids/abnormal bmd, take vitamin D script if [...] questions and concerns, patient voiced understanding. RECOMMENDATION/PLAN: [facility] on 02/04/23 DXA-AXIAL SKELETON DXA-FOREARM SKELETON [...] (200mg) daily with a meal Please see software recruiter every 6-12months while on Hydroxychloroquine. Start 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 [...] touching your toes, sit-ups, using row machine correction pain recommendations per primary care provider/pain clinic [...] video & audio (virtual) or phone or utva-kt-wxld patient care, completing clinical documentation, obtaining and/or [...] cc Gay Enciso CNP;Dr.Douglas Sai Ferris MD [facility] V[facility] INTAKE QUESTIONNAIRE Question 02/02/2023 [...] Workers' Compensation? No Do you need an white sugar pan tank operator? No [facility] MYCHART ZOOM MESSAGE Question 02/02/2023 10:32 PM [...] Yes Memory Loss: No Swollen Glands: Yes [facility] SLAQ QUESTIONNAIRE Question 02/02/2023 10:38 PM EDT [...] SLAQ Score (range: 0 - 47) 24 [facility] PROVIDER UNDERSTANDING CURRENT HEALTH RHEUMATOLOGY Question 02/02/2023 [...] = 5) documented in this encounterUniversity Hospitals Portage Medical Center09-14-2023 Instructions* Patient Instructions* Lynne Ni [...] (200mg) daily with a meal Please see software recruiter every 6-12months while on Hydroxychloroquine. 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 daily [...] touching your toes, sit-ups, using row machine hand bookbinder pain recommendations per primary care provider/pain clinic [...] activities immediately. documented in this encounterUniversity Hospitals Portage Medical Center09-05-2023 Miscellaneous Notes* Telephone Encounter - Maynor Bryson MA - 01/26/2023 7:46 AM EDT patient has viewed the [employer] message per Emair. * Telephone Encounter - Lynne Ni MD - 01/24/2023 8:04 PM EDT Please Call patient if [employer] note not read to review results/released to My Chart if tests completed at [facility]: mildly high normal wbc- will monitor. [...] Ni MD documented in this encounterUniversity Hospitals Portage Medical Center09-01-2023 Nurse Note* Radha Kebede MA - 01/22/2023 12:17 PM EDT Patient Identification confirmed: yes. Injection given and documented on JUL per provider order. Radha Schofield MA documented in this encounterUniversity Hospitals Portage Medical Center08-22-2023 Miscellaneous Notes* Telephone Encounter - [...] the above prescription(s) to electronically send to [facility] pharmacy. Milagro Mendiola MA documented in this encounterUniversity Hospitals Portage Medical Center08-11-2023 History of Present illness Narrative* Misty Nelson MD - 01/01/2023 10:51 AM EDT VIRTUAL VISIT PROGRESS NOTE This is a virtual visit using [employer] video visit. It required patient-provider interaction for themedical decision making as documented below. I have communicated my name and active licensure. The patient's identity and physical location wereverified at the time of this visit. Either the patient or their legal branch service representative has been informed of the [...] otitis or sinusitis No pneumonia She sees technology recruiter and was diagnosed with lupus She is on Plaquenil, 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 Prednisone 10mg once daily for the past year; every few months she gets treated with higher doses of prednisone for flares of her symptoms The medications seem to help the body aches She saw the gut sorter Treated with B12 and folic acid We [...] Nelson MD documented in this encounterUniversity Hospitals Portage Medical Center07-28-2023 Miscellaneous Notes* Telephone Encounter - Rebekah Rojas APRN.CNP - 12/18/2022 10:48 AM EDT Spoke with patient this morning, 12/18/2022. Rebekah Rojas APRN.TRUE * Telephone Encounter - Lidia Argueta RN - 12/18/2022 9:31 AM EDT Pt called vehicle monitor technician service last evening stating she was suppose to have a phone call with Rebekah at 330 and never received a call. Pt is still waiting (536 pm 12/17/22). Please advise Lidia Argueta RN documented in this encounterUniversity Hospitals Portage Medical Center07-28-2023 History of Present illness Narrative* Rebekah Rojas APRN.CNP - 12/18/2022 9:07 AM EDT Images [...] Total Time Spent: 21 minutes Rebekah Rojas APRN.MANAGER INTELLIGENCE NAME: Ariadna Haley CLINIC NO.: [id number] DATE OF SERVICE: October 22, 2022 ([facility]) [...] lower lip done 2 days ago at [facility] - awaiting results. B12 helps [...] there. Updated Visit, August 27, 2022: Ariadna Melissa De Pazhugo returns for follow-up and B12 injection. She has missed a few B12 injections. 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 She has been told they [...] which included preparing to see the patient, vuqi-yh-divb patient care, completing clinical documentation, performing a medically appropriate examination, counseling and educating the patient/family/caregiver, ordering medications, tests, or p rocedures, and independently interpreting results (not separately reported). Vera Najera MD, CPE Hematology and Oncology Services Provided at: [place], [place] CC: Manuel Ferris MD [address] [facility] [address] documented in this encounterUniversity Hospitals Portage Medical Center07-26-2023 Miscellaneous Notes* Telephone Encounter - Pamella Bettencourt RN - 12/16/2022 1:14 PM EDT Pt notified and verbalizes understanding. Clerical: Please change tomorrow's appointment to a phone visit at the end of Reebkah's day. Preferred number is [phone]. In addition, pt will be in next 12/25/22 @ 1130 for her B12 shot. Please add her to the MA schedule. Thanks! Pamella Bettencourt RN * Telephone Encounter - Rebekah Rojas APRN.CNP - 12/16/2022 12:56 PM EDT That would be okay. Have her added at the end of the day. Thanks, Rebekah Rojas APRN.TRUE * Telephone Encounter - Pamella Bettencourt RN [...] Bettencourt RN documented in this encounterUniversity Hospitals Portage Medical Center07-23-2023 Miscellaneous Notes* Telephone Encounter - Vera Najera [...] you MASON/HM: please review and advise Enma Hamm, RN documented in this encounterUniversity Hospitals Portage Medical Center07-04-2023 Miscellaneous Notes* Telephone Encounter - [...] Ni MD documented in this encounterUniversity Hospitals Portage Medical Center06-29-2023 Nurse Note* Margret Cuenca - 11/19/2022 11:01 AM EDT Patient Identification confirmed: yes. Injection given and documented on JUL per provider order. Margret Cuenca documented in this encounterUniversity Hospitals Portage Medical Center06-01-2023 Nurse Note* Stacy Gutiérrez Ma - 10/22/2022 11:50 AM EDT Patient Identification confirmed: yes. Injection given and documented on JUL per provider order. Stacy Gutiérrez Ma documented in this [facility]06-01-2023 Instructions* Patient Instructions* Vera Najera MD - 10/22/2022 11:43 AM EDT B12 Shot today and every 4 weeks. Continue Folic acid. Follow up in 8 Weeks - labs 1 week before. documented in this encounterUniversity Hospitals Portage Medical Center06-01-2023 History of Present illness Narrative* Vera Najera MD - 10/22/2022 11:35 AM EDT Images from the original note were not included. NAME: TeraAriadna CLINIC NO.: [id number] DATE OF SERVICE: October 22, 2022 ([facility]) [...] lower lip done 2 days ago at [facility] - awaiting results. B12 helps [...] injections. 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 She has been told they [...] which included preparing to see the patient, lttt-vv-zqop patient care, completing clinical documentation, performing a medically appropriate examination, counseling and educating the patient/family/caregiver, ordering medications, tests, or p rocedures, and independently interpreting results (not separately reported). Vera Najera MD, CPE Hematology and Oncology Services Provided at: [place], [place] CC: Manuel Ferris MD [address] [facility] [address] documented in this encounterUniversity Hospitals Portage Medical Center05-04-2023 Nurse Note* Stacy Gutiérrez Ma - 09/24/2022 10:22 AM EDT Patient Identification confirmed: yes. Injection given and documented on JUL per provider order. Stacy Gutiérrez Ma documented in this encounterUniversity Hospitals Portage Medical Center04-18-2023 Miscellaneous Notes* Telephone Encounter - Stacy Hernandez - 09/08/2022 2:27 PM EDT Pharmacy-Reviewed Medication History Patient Name:Jim Haley : 1980 Patient Contact Attempt: First attempt Adherence Packing Program Accepted? No, patient does not wish to participate. Patient is not eligible for adherence packaging because PCP is not within [facility]. Patient wishes to continue at [facility] since medication bottles will look the same and then she can pick-up the medications when she needs them. Stacy Hernandez September 08, 2022 2:28 PM [facility] [phone] documented in this encounterUniversity Hospitals Portage Medical Center04-17-2023 History of Present illness Narrative* [...] which included preparing to see the patient, jqxy-vy-dzdo patient care, completing clinical documentation, performing a medically appropriate examination, counseling and educating the patient/family/caregiver, ordering medications, tests, or p rocedures, and communicating with other HCPs (not separately reported). I have communicated my name and active licensure. The patient's identity and physical location wereverified at the time of this visit. Either the patient or their legal branch service representative has been informed of the risks and benefits of -- and alternatives to -- treatment through a remote evaluation andconsents to proceed with the evaluation remotely. Christie Phan MD, [place], [facility] Lifestyle Medicine Specialist documented in this encounterUniversity Hospitals Portage Medical Center04-17-2023 Nurse Note* Milagro Mendiola MA - 09/07/2022 2:00 PM EDT Called pt to do intake for video visit pt unavailable lft vm msg sent my chart. Milagro Mendiola MA documented in this encounterUniversity Hospitals Portage Medical Center04-10-2023 Miscellaneous Notes* Telephone Encounter - Shantel Higgins MA - 08/31/2022 8:38 AM EDT called [facility] pharmacy - pharmacy had 1 refill remaining no action needed from our office documented in this encounterUniversity Hospitals Portage Medical Center04-06-2023 Nurse Note* Stacy Gutiérrez Ma - 08/27/2022 10:31 AM EDT Patient Identification confirmed: yes. Injection given and documented on JUL per provider order. Stacy Gutiérrez Ma documented in this encounterUniversity Hospitals Portage Medical Center04-06-2023 History of Present illness Narrative* Rebeakh Rojas APRN.TRUE - 08/27/2022 10:00 AM EDT Images from the original note were not included. NAME: Ariadna Haley [facility] [id number] DATE OF SERVICE: August 27, 2022 (Bob) Some elements in this clinic note that are critical to medical decision making have been carefully reviewed and included from a prior clinic note dated: May 20, 2022. (Dr. Najera) Referring Provider: Dr. Manuel Ferris Additional Clinicians involved in Ariadna De Pazlazarofrancisco javier's care: DIAGNOSIS: Multiple symptoms [...] injections. 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 She has been told they [...] stomach other (Crohn's [Other]) Mother Rebekah Rojas APRN.CNP Hematology and Oncology Services Provided at: [place], [place] CC: Manuel Ferris MD [address] [facility] [address] I spent a total of 30 minutes on the date of the service which included preparing to see the patient, dyeb-ic-netj patient care, completing clinical documentation, obtaining and/or reviewing separately obtained history, performing a medically appropriate examination, counseling and educating the pat ient/family/caregiver, ordering medications, tests, or procedures, independently interpreting results (not separately reported), and communicating results to the patient/family/caregiver. documented in this encounterUniversity Hospitals Portage Medical Center03-29-2023 Miscellaneous Notes* Telephone Encounter - [...] low vitamin b12- take over the counter 4751-0429 mcg daily. Improved/ normal rest of rheum [...] Ni MD documented in this encounterUniversity Hospitals Portage Medical Center03-28-2023 Miscellaneous Notes* Telephone Encounter - [...] Ni MD documented in this encounterUniversity Hospitals Portage Medical Center03-20-2023 Miscellaneous Notes* Telephone Encounter - Christie Phan MD - 08/10/2022 9:46 AM EDT [facility] requesting refill, patient never started according to the chart and I have not seen her in follow-up. * Telephone Encounter - Jami Everett Cma - 08/10/2022 7:40 AM EDT [facility] Pharmacy request for the following refill(s): Requested Prescriptions Pending Prescriptions Disp Refills DULoxetine (CYMBALTA) 20 mg capsule [Pharmacy Med Name: DULOXETINE HCL DR 20 MG CAP] 30 capsule 2 Sig: TAKE 1 CAPSULE BY MOUTH ONCE DAILY Please review and advise. Jami Everett Cma documented in this encounterUniversity Hospitals Portage Medical Center03-06-2023 Instructions* Patient Instructions* Lexus Heck APRN.MANAGER INTELLIGENCE - 07/27/2022 9:12 PM EST Images from the original note were not included. Your most recent body mass index (BMI) that we have on record is 40.56 kg/m2. Obstructive sleep apnea (JOSE RAFAEL) worsens with an increase in weight; reduction in weight may improve or resolve your JOSE RAFAEL. Ifyou are not already seeking treatment, there are resources available at the [facility] such as a nutrition consultation or referral to weight management programs at our [facility]. Please let us know if we can assist with a referral. - Continue CPAP at 5-15 cmH2O. - Remember to clean your mask and equipment regularly, as directed. - You should be eligible for new supplies approximately every 3-6 months, depending on your insurance coverage. Contact your [employer] (DME) company for new supplies. [...] the central scheduling system for the [facility] at [phone]. [employer] now offers direct scheduling for patients to schedule appointments. Virtual visits are also available. If not covered by your insurance, there is a 35% discount. Please contact your insurance to determine coverage. Call the office at [phone], option #5 for questions. documented in this encounterUniversity Hospitals Portage Medical Center03-06-2023 History of Present illness Narrative* Lexus Heck APRN.CNP - 07/27/2022 10:30 AM EST Images from the original note were not included. [facility] Virtual Visit [...] will have a prescription sent to a [employer]) company - [employer] who will be calling you in the next 1-2 weeks or so. Please call them directly or us if you do not hear from them in this time frame. - Will request formal mask fitting - You should be eligible for new supplies approximately every 3-6 months, depending on your insurance coverage. - If your mask doesn't fit well, call the [employer] company before 30 days are up to [...] now to ensure the besttime for you. [facility] on 04/13/22 CONSULT TO SLEEP MEDICINE - ADULT CPAP/BIPAP/OTHER PAP THERAPY ORDER Lawanda Miranda MD Interval history : Here for follow up for sleep apnea management. SLEEP APNEA Sleep apnea type : JOSE RAFAEL Most Recent Apnea-Hypopnea Index (AHI): 5.3 Treatment : PAP therapy DME: Josh MOJICA fax: [phone] DME ph: [phone] PAP History: Current PAP settin-15 cm H2O. [...] or near accidents due to drowsy drivin Jarratt Sleepiness Scale 04/12/2022 07/23/2022 Score 4 (No [...] or procedures. documented in this encounterUniversity Hospitals Portage Medical Center03-03-2023 Miscellaneous Notes* Telephone Encounter - [...] complete patient specific tasks. documented in this encounterUniversity Hospitals Portage Medical Center03-01-2023 Miscellaneous Notes* Telephone Encounter - Gem Mercedes RN - 07/22/2022 2:37 PM EST OLXt message sent documented in this encounterUniversity Hospitals Portage Medical Center12-28-2022 History of Present illness Narrative* Kenzie Shannon - 05/20/2022 2:28 PM EST Patient Identification confirmed: yes. Injection given and documented on JUL per provider order. Kenzie Shannon documented in this encounterUniversity Hospitals Portage Medical Center12-28-2022 Miscellaneous Notes* Addendum Note - Vera Najera MD - 05/20/2022 2:27 PM ESTAddended by: VERA NAJERA on: 05/20/2022 02:27 PM Modules accepted: Orders documented in this encounterUniversity Hospitals Portage Medical Center12-28-2022 Instructions* Patient Instructions* Vera Najera MD - 05/20/2022 2:23 PM EST B12 Shot Today and every 4 weeks Get fit for CPAP mask and setting this 05/28/2021 Continue Folic acid. RTC in 8 Weeks - labs 1 week before. documented in this encounterUniversity Hospitals Portage Medical Center12-28-2022 History of Present illness Narrative* Vera Najera MD - 05/20/2022 1:30 PM EST Images from the original note were not included. NAME: Ariadna Haley CLINIC NO.: [id number] DATE OF SERVICE: May 20, 2022 ([place]) Some elements in this clinic note that are critical to medical decision making have been carefully reviewed and included from a prior clinic note dated: March 18, 2022 (Marquis) Referring Provider: Manuel Ferris Additional Clinicians involved [...] which included preparing to see the patient, qiyl-xx-dkto patient care, completing clinical documentation, performing a medically appropriate examination, counseling and educating the patient/family/caregiver, ordering medications, tests, or p rocedures, and independently interpreting results (not separately reported). Vera Najera MD, CPE Hematology and Oncology Services Provided at: [place], [place] CC: Vera Najera [address] [place] [address] [facility] [address] Manuel Ferris MD, MD [address] [facility] [address] CC: Manuel Ferris MD [address] [facility] [address] documented in this encounterUniversity Hospitals Portage Medical Center12-13-2022 Miscellaneous Notes* Telephone Encounter - Gem Mercedes RN - 05/05/2022 2:39 PM EST Faxed order, office notes, demographics, and sleep study to: DME name: Josh Reese DME fax: [phone] DME ph: [phone] Confirmation received. documented in this encounterUniversity Hospitals Portage Medical Center12-13-2022 Miscellaneous Notes* Telephone Encounter - Gem Mercedes RN - 05/05/2022 12:00 PM EST OLXt message sent documented in this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 Diagnosed Date Resolved Date Obesity (BMI 30-39.9) 05/31/20142016 documented as of this encounter (statuses as of 02/07/2023) [facility]01-08-2015 History of Past illness Narrative* Problem Noted Date Diagnosed Date Resolved Date Obesity (BMI 30-39.9) 05/31/20142016 documented as of this encounter (statuses as of 02/08/2023) [facility]-08-2015 History of Past illness Narrative* Problem Noted Date Diagnosed Date Resolved Date Obesity (BMI 30-39.9) 05/31/20142016 documented as of this encounter (statuses as of 02/16/2023) [facility]-08-2015 History of Past illness Narrative* Problem Noted Date Diagnosed Date Resolved Date Obesity (BMI 30-39.9) 05/31/20142016 documented as of this encounter (statuses as of 02/19/2023) [place] [address]2015 History of Past illness Narrative* Problem Noted Date Diagnosed Date Resolved Date Obesity (BMI 30-39.9) 05/31/20142016 documented as of this encounter (statuses as of 02/21/2023) [address]2015 History of Past illness Narrative* Problem Noted Date Diagnosed Date Resolved Date Obesity (BMI 30-39.9) 05/31/20142016 documented as of this encounter (statuses as of 03/02/2023) [facility] Other systemic lupus [...] and myositis, unspecified [facility] Swelling of lymph nodes- Primary Enlargement of lymph nodes Other systemic lupus erythematosus with other organ involvement (HCC) On prednisone therapy Hair loss Alopecia, unspecified Bilateral sacroiliitis (HCC) Long-term use of Plaquenil 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-term (current) use of other medications [facility] Vitamin B12 deficiency- Primary Other B-complex deficiencies Vitamin D deficiency Unspecified vitamin D deficiency Elevated sed rate Elevated sedimentation rate Elevated C-reactive protein (CRP) [facility] Diagnosis 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 Other vitamin B12 deficiency anemia Somnolence, daytime Hypersomnia, unspecified Snoring Other dyspnea and respiratory abnormality Chronic fatigue and malaise Chronic fatigue syndrome Obesity, unspecified classification, unspecified obesity type, unspecified whether serious comorbidity present [facility] Diagnosis Obesity, Class II, BMI [...] nonspecific immunological findings [facility] Diagnosis Megaloblastic anemia due to vitamin B12 deficiency- Primary Other vitamin B12 deficiency anemia High total serum IgM [facility] Diagnosis Raised level of immunoglobulins- Primary Other and unspecified nonspecific immunological findings Wound healing, delayed Open wound(s) (multiple) of unspecified site(s), complicated Current smoker Tobacco use disorder [facility] Family history of genetic disease- Primary Family history of other condition [facility] Diagnosis High total serum IgM- Primary Elevated sed rate Elevated sedimentation rate Somnolence, daytime Hypersomnia, unspecified JOSE RAFAEL (obstructive sleep apnea) Obstructive sleep apnea (adult) (pediatric) [facility] Diagnosis Megaloblastic anemia due to vitamin B12 deficiency- Primary Other vitamin B12 deficiency anemia Elevated sed rate Elevated sedimentation rate [facility] Diagnosis Megaloblastic anemia due to vitamin B12 deficiency- Primary Other vitamin B12 deficiency anemia Elevated sed rate Elevated sedimentation rate High total serum IgM Chronic fatigue and malaise Chronic fatigue syndrome [facility] Diagnosis JOSE RAFAEL (obstructive sleep apnea)- Primary Obstructive sleep apnea (adult) (pediatric) [facility] Diagnosis Other systemic lupus erythematosus with other organ involvement (HCC)- Primary Family history of Crohn's disease Family history of other digestive disorders Fibromyalgia Mylagia and myositis, unspecified [facility] Diagnosis Other systemic lupus erythematosus with other organ involvement (HCC)- Primary Elevated LFTs Other abnormal blood chemistry Anemia of chronic disease Anemia of other chronic disease Encounter for correction 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-term (current) use of other medications [facility] Diagnosis Megaloblastic anemia due to vitamin B12 deficiency- Primary Other vitamin B12 deficiency anemia Elevated sed rate Elevated sedimentation rate [facility] Diagnosis Megaloblastic anemia due to vitamin B12 deficiency- Primary Other vitamin B12 deficiency anemia Elevated sed rate Elevated sedimentation rate High total serum IgM Chronic fatigue and malaise Chronic fatigue syndrome JOSE RAFAEL (obstructive sleep apnea) Obstructive sleep apnea (adult) (pediatric) [facility] Diagnosis Vitamin D deficiency Unspecified vitamin D deficiency [facility] Diagnosis Obesity, Class III, BMI >= 40- Primary Morbid obesity Polypharmacy 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-term (current) use of other medications Pre-diabetes Other abnormal glucose [facility] Diagnosis Megaloblastic anemia due to vitamin B12 deficiency- Primary Other vitamin B12 deficiency anemia Elevated sed rate Elevated sedimentation rate [facility] Megaloblastic anemia due to vitamin B12 deficiency- Primary Other vitamin B12 deficiency anemia Elevated sed rate Elevated sedimentation rate [facility] Diagnosis Megaloblastic anemia due to vitamin B12 deficiency- Primary Other vitamin B12 deficiency anemia Elevated sed rate Elevated sedimentation rate High total serum IgM Chronic fatigue and malaise Chronic fatigue syndrome Obstructive sleep apnea syndrome Obstructive sleep apnea (adult) (pediatric) [facility] Diagnosis Megaloblastic anemia due to vitamin B12 deficiency- Primary Other vitamin B12 deficiency anemia Elevated sed rate Elevated sedimentation rate [facility] Diagnosis Other systemic lupus erythematosus with other organ involvement (HCC) 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-term (current) use of other medications [facility] Diagnosis Megaloblastic anemia due to vitamin B12 deficiency- Primary Other vitamin B12 deficiency anemia Chronic fatigue and malaise Chronic fatigue syndrome [facility] Diagnosis High total serum IgM- Primary Low serum IgG for age Current smoker Tobacco use disorder [facility] Diagnosis Obesity, Class II, BMI 35-39.9 Obesity, unspecified Prediabetes Other abnormal glucose [facility] Diagnosis Megaloblastic anemia due to vitamin B12 deficiency- Primary Other vitamin B12 deficiency anemia Elevated sed rate Elevated sedimentation rate [facility] Diagnosis Other systemic lupus erythematosus with other organ involvement (HCC)- Primary Vitamin D deficiency Unspecified vitamin D deficiency Elevated LFTs Other abnormal blood chemistry Anemia of chronic disease Anemia of other chronic disease Elevated sed rate Elevated sedimentation rate Elevated C-reactive protein (CRP) [facility] Diagnosis Other systemic lupus erythematosus with [...] involvement (HCC)- Primary [facility] Diagnosis Megaloblastic anemia due to vitamin B12 deficiency- Primary Other vitamin B12 deficiency anemia High total serum IgM Elevated sed rate Elevated sedimentation rate [facility] Diagnosis Other systemic lupus erythematosus with other organ involvement (HCC)- Primary [facility] Diagnosis Other systemic lupus erythematosus with other organ involvement (HCC) Encounter for correction 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-term (current) use of other medications [facility] Diagnosis Megaloblastic anemia due to vitamin B12 deficiency- Primary Other vitamin B12 deficiency anemia Elevated sed rate Elevated sedimentation rate [facility] Diagnosis Megaloblastic anemia due to vitamin B12 deficiency- Primary Other vitamin B12 deficiency anemia Elevated sed rate Elevated sedimentation rate Chronic fatigue and malaise Chronic fatigue syndrome High total serum IgM JOSE RAFAEL (obstructive sleep apnea) Obstructive sleep apnea (adult) (pediatric) [facility] Diagnosis Insulin resistance, unspecified- Primary Depression, recurrent (HCC) Major depressive disorder, recurrent episode, unspecified Chronic pain syndrome [facility] Diagnosis Systemic lupus erythematosus, unspecified SLE type, unspecified organ involvement status (HCC)- Primary [facility] Diagnosis Megaloblastic anemia due to vitamin B12 deficiency- Primary Other vitamin B12 deficiency anemia Elevated sed rate Elevated sedimentation rate [facility] Diagnosis Megaloblastic anemia due to vitamin B12 deficiency- Primary Other vitamin B12 deficiency anemia Elevated sed rate Elevated sedimentation rate [facility] Diagnosis Obesity, Class III, BMI >= 40- Primary Morbid obesity FUO (fever of unknown origin) Fever, unspecified Other chronic pain [facility] Diagnosis Obesity, Class III, BMI >= 40 Morbid obesity [facility] Diagnosis Obesity, Class III, BMI >= 40- Primary Morbid obesity Other chronic pain [facility] Diagnosis Irregular heart rate- Primary Essential hypertension Unspecified essential hypertension Autonomic dysfunction Obstructive sleep apnea syndrome Obstructive sleep apnea (adult) (pediatric) Primary hypertension Unspecified essential hypertension documented in this encounter [facility] Work Phone: Evaluation note* Diagnosis Autoimmune disease (CMS/HCC)- Primary Autoimmune disease, not elsewhere classified Autonomic dysfunction Lumbosacral radiculopathy Thoracic or lumbosacral neuritis or radiculitis, unspecified Bilateral leg weakness Muscle weakness (generalized) [facility] Diagnosis Shortness of breath- Primary Paroxysmal supraventricular tachycardia PAC (premature atrial contraction) Supraventricular premature beats Current smoker Systemic lupus erythematosus, unspecified SLE type, unspecified organ involvement status (CMS/HCC) Palpitations Obstructive sleep apnea syndrome Obstructive sleep apnea (adult) (pediatric) Morbid obesity (CMS/HCC) Morbid obesity Bilateral lower extremity edema documented in this encounter [facility] Work Phone: Evaluation note* Diagnosis Megaloblastic anemia due to vitamin B12 deficiency- Primary Other vitamin B12 deficiency anemia Elevated sed rate Elevated sedimentation rate [facility] Diagnosis Systemic lupus erythematosus with other organ involvement (HCC)- Primary [facility] Diagnosis Systemic lupus erythematosus with other organ involvement (HCC)- Primary [facility] Diagnosis Megaloblastic anemia due to vitamin B12 deficiency- Primary Other vitamin B12 deficiency anemia Elevated sed rate Elevated sedimentation rate [facility] Diagnosis Other systemic lupus erythematosus with other organ involvement (HCC)- Primary Vitamin D deficiency Unspecified vitamin D deficiency Elevated LFTs Other abnormal blood chemistry Anemia of chronic disease Anemia of other chronic disease Elevated sed rate Elevated sedimentation rate Elevated C-reactive protein (CRP) [facility] Diagnosis Megaloblastic anemia due to vitamin [...] other medications Long-term use of high-risk medication correction 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 Encounter [...] with other organ involvement (HCC) 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-term [...] (pediatric) [facility] Diagnosis Elevated LFTs- Primary Other abnormal blood chemistry Elevated C-reactive protein (CRP) Elevated sed rate Elevated sedimentation rate Vitamin D deficiency Unspecified vitamin D deficiency Screening-pulmonary TB Screening examination for pulmonary tuberculosis [facility] Diagnosis Other systemic lupus erythematosus with other organ involvement (HCC) [facility] [facility] note* Diagnosis Systemic lupus erythematosus with other organ involvement (HCC)- Primary [facility] Diagnosis Elevated sed rate- Primary Elevated sedimentation rate Megaloblastic anemia due to vitamin B12 deficiency Other vitamin B12 deficiency anemia [facility] Diagnosis Pseudomonas infection- Primary Pseudomonas infection in conditions classified elsewhere and of unspecified site Other systemic lupus erythematosus with other organ involvement (HCC) On prednisone therapy Long-term use of Plaquenil 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-term (current) use of other medications documented [facility] this [facility]* Diagnosis Onset Date Resolution Status Lupus acute Recurrent Clostridioides difficile diarrhea acute Nipple discharge in female a cute Recurrent Clostridioides difficile diarrhea acute Lumbosacral spondylosis acut e Other chronic pain acute Sacroiliitis [facility] Work Phone: Evaluation note* Diagnosis JOSE RAFAEL (obstructive sleep apnea)- Primary Obstructive sleep apnea (adult) (pediatric) Somnolence, daytime Hypersomnia, unspecified documented [facility] this [facility]* Diagnosis Systemic lupus erythematosus with other organ involvement (HCC)- Primary [facility] Diagnosis Systemic lupus erythematosus with other organ involvement (HCC)- Primary [facility] this [facility]* Diagnosis Onset Date Resolution Status Nipple discharge in female a cute Recurrent Clostridioides difficile diarrhea acute Lumbosacral spondylosis acut e Other chronic pain acute Sacroiliitis [facility] Work Phone: Evaluation note* Diagnosis Elevated sed rate- Primary Elevated sedimentation rate Megaloblastic anemia due to vitamin B12 deficiency Other vitamin B12 deficiency anemia [facility] Diagnosis Onset Date Resolution Status Nipple discharge in female a cute Recurrent Clostridioides difficile diarrhea acute Lumbosacral spondylosis acut e Other chronic pain acute Sacroiliitis acute Lumbosacral spondylosis acut e Other chronic pain acute Sacroiliitis acute [facility] Work Phone: Evaluation note* Diagnosis Lumbosacral radiculopathy at L5 Degenerative disc disease, lumbar Cervical radiculopathy at C5 documented in this encounter [facility]* Diagnosis Onset Date Resolution Status Lumbosacral spondylosis acut e Other chronic pain acute Sacroiliitis acute Lumbosacral spondylosis acut e Other chronic pain acute Sacroiliitis acute [facility] Work Phone: Evaluation note* Diagnosis Other systemic lupus erythematosus with other organ involvement (HCC) documented [facility] this [facility] Diagnosis Other systemic lupus [...] both feet Long-term use of high-risk medication correction 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-term (current) use of steroids Bilateral hand pain Pain in limb Systemic lupus erythematosus, unspecified SLE type, unspecified organ involvement status (HCC) Vitamin B12 deficiency Other B-complex deficiencies Discoid lupus erythematosus Lupus erythematosus documented [facility]* Diagnosis Nipple discharge Other sign and symptom in breast documented in this encounter [facility] HealthcareEvaluation note* Diagnosis Elevated sed rate- Primary Elevated sedimentation rate Megaloblastic anemia due to vitamin B12 deficiency Other vitamin B12 deficiency anemia [facility]* Diagnosis Abnormal uterine bleeding (AUB) Menorrhagia with regular cycle documented in this encounter [facility] Healthcare[facility] note* Diagnosis Megaloblastic anemia due to vitamin B12 deficiency- Primary Other vitamin B12 deficiency anemia High total serum IgM JOSE RAFAEL (obstructive sleep apnea) Obstructive sleep apnea (adult) (pediatric) Elevated sed rate Elevated sedimentation rate Hypogammaglobulinemia (HCC) Hypogammaglobulinaemia, unspecified Frequent infections [facility]* Diagnosis Oral thrush- Primary Candidiasis of mouth documented in this encounter [facility] HealthcareEvaluation note* Diagnosis Oral thrush- Primary Candidiasis of mouth documented in this encounter [facility] HealthcareEvaluation note* Diagnosis Systemic lupus erythematosus with other organ involvement (HCC)- Primary [facility]* Diagnosis LPRD (laryngopharyngeal reflux disease)- Primary Acute laryngitis, without mention of obstruction Acute otalgia, right documented in this encounter [facility] HealthcareEvaluation note* Diagnosis Autoimmune disease ([facility]) Autoimmune disease, not elsewhere classified Fibromyalgia Unspecified myalgia and myositis Numbness Disturbance of skin sensation documented in this encounter [facility] HealthcareEvaluation note* Diagnosis Lumbosacral radiculopathy at L5- Primary Degenerative disc disease, lumbar Cervical radiculopathy at C5 documented in this encounter [facility]* Diagnosis Degenerative disc disease, lumbar- Primary Lumbosacral radiculopathy at L5 documented in this encounter [facility] HealthcareEvaluation note* Diagnosis Frequent infections- Primary Megaloblastic anemia due to vitamin B12 deficiency Other vitamin B12 deficiency anemia Elevated sed rate Elevated sedimentation rate Hypogammaglobulinemia (HCC) Hypogammaglobulinaemia, unspecified Bilateral leg weakness Other musculoskeletal symptoms referable to limbs Discoid lupus erythematosus Lupus erythematosus documented [facility] this encounter [facility]* Diagnosis Well woman exam with routine gynecological exam Routine gynecological examination Breast cancer screening by mammogram Breast nodule Other (abnormal) findings on radiological examination of breast documented [facility] this encounter [facility]* Diagnosis Megaloblastic anemia due to vitamin B12 deficiency- Primary Other vitamin B12 deficiency anemia Hypogammaglobulinemia (HCC) Hypogammaglobulinaemia, unspecified Positive blood cultures Bacteremia Malaise and fatigue Other malaise and fatigue SOB (shortness of breath) Shortness of breath documented in this encounter [facility] Diagnosis Elevated sed rate- Primary Elevated sedimentation rate Megaloblastic anemia due to vitamin B12 deficiency Other vitamin B12 deficiency anemia Hypogammaglobulinemia (HCC) Hypogammaglobulinaemia, unspecified Frequent infections Bilateral leg weakness Other musculoskeletal symptoms referable to limbs Discoid lupus erythematosus Lupus erythematosus documented in this encounter [facility]* Diagnosis Diarrhea, unspecified type- Primary Abdominal pressure Abdominal pain, unspecified site documented in this encounter [facility]* Diagnosis Other iron deficiency anemia- Primary documented in this encounter [facility]* Diagnosis Other systemic lupus erythematosus with other organ involvement (HCC) [facility] Diagnosis Systemic lupus erythematosus with other organ involvement (HCC)- Primary [facility]* Diagnosis Systemic lupus erythematosus (CMS-HCC)- Primary Cold extremities Pain of lower extremity, unspecified laterality Rheumatoid arthritis, involving unspecified site, unspecified whether rheumatoid factor present (CMS-HCC) Current smoker 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 [facility]* Diagnosis Systemic lupus erythematosus (CMS-HCC)- Primary Cold extremities Pain of lower extremity, unspecified laterality Rheumatoid arthritis, involving unspecified site, unspecified whether rheumatoid factor present (CMS-HCC) Current smoker 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 Peripheral vascular disease, unspecified (CMS-HCC)- Primary Peripheral vascular disease, unspecified Cold extremities Systemic lupus erythematosus (CMS-HCC) [facility] Diagnosis Other systemic lupus erythematosus with other organ involvement (HCC)- Primary Vitamin D deficiency Unspecified vitamin D deficiency Elevated LFTs Other abnormal blood chemistry Anemia of chronic disease Anemia of other chronic disease Elevated sed rate Elevated sedimentation rate Elevated C-reactive protein (CRP) documented in this encounter [facility] note* Diagnosis Onset Date Resolution Status Admit Date Lumbosacral spondylosis acute F ebruary 2024 3:16pm Other chronic pain acute Februa ry 2024 3:16pm Sacroiliitis acute June 3:16pm [facility] Work Phone: Evaluation note* Diagnosis Elevated sed rate- Primary Elevated sedimentation rate Megaloblastic anemia due to vitamin B12 deficiency Other vitamin B12 deficiency anemia Frequent infections Hypogammaglobulinemia (HCC) Hypogammaglobulinaemia, unspecified Bilateral leg weakness Other musculoskeletal symptoms referable to limbs Discoid lupus erythematosus Lupus erythematosus documented in this [facility]* Diagnosis LPRD (laryngopharyngeal reflux disease) Other diseases of larynx Dry mouth Disturbance of salivary secretion Current smoker Tobacco use disorder Abnormal mouth sensation Other and unspecified diseases of the oral soft tissues [facility] Diagnosis Nipple discharge- Primary Other sign and symptom in breast Other systemic lupus erythematosus with other organ involvement (HCC) On prednisone therapy Long-term use of Plaquenil 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-term (current) use of other medications [facility] Diagnosis Hidradenitis suppurativa- Primary Hidradenitis Other seborrheic dermatitis Lupus erythematosus tumidus (CMS/HCC) Rash and other nonspecific skin eruption Capillary angioma Nevus, non-neoplastic Neoplasm of uncertain behavior of skin documented in this encounter [facility] HealthcareEvaluation note* Diagnosis Sinus tachycardia- Primary Other specified cardiac dysrhythmias Shortness of breath Paroxysmal supraventricular tachycardia (CMS-HCC) Paroxysmal supraventricular tachycardia Essential hypertension Unspecified essential hypertension Obstructive sleep apnea syndrome Obstructive sleep apnea (adult) (pediatric) Morbid obesity (Multi) Morbid obesity Current smoker documented in this encounter [facility] Work Phone: History general Narrative - Reported* Type Description Date Medical History hyperlipidemia Medical History insulin resistance Medical History CMV Surgical History cyst removal pilonidal Surgical History D&C Hospitalization History [facility] Other Hospital Discharge instructionsAmbulatory Orders* Referral to Gastroenterology Location: None [facility] Work Phone: InstructionsNot on filedocumented in this encounter [facility]ative)* Diagnostic Procedure Only (Routine) - Pending Review Specialty Diagnoses / Procedures Referred By Nahid tran Referred To Contact XR IMAGING Diagnoses Steroid-induced osteoporosis Procedures DXA-FOREARM SKELETON DXA BONE DENSITY STUDY 1/>SITES APPENDICLR Lynne Perera MD [address] [place] [address] [place] [address] Referral ID Status Reason Start Date Expiration Date Visits Requested Visits Authorized [id number] Pending Review Auto-Generat ed Referral 02/04/2023 03/05/2024 1 1 [facility] for referral (narrative)* Consultation (Routine) - Authorized Specialty Diagnoses / Procedures Referred By Contac t Referred To Contact Cardiology Diagnoses Irregular heart rate Essential hypertension Autonomic dysfunction Obstructive sleep apnea syndrome Primary hypertension Procedures Follow Up In Cardiology Michelle Jasmine APRN-CNP 254 [facility] [address] [place] [address] Aurora Patel MD [address] [address] Referral ID Status Reason Start Date Expiration Date V isits Requested Visits Authorized [id number] Authorized 06/09/2023 06/08/2024 1 1 * Cardiovascular (Routine) - Pending Review Specialty Diagnoses / Procedures Referred By Contac t Referred To Contact Cardiology Diagnoses Irregular heart rate 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 Michelle Jasmine APRN-CNP 254 [facility] [address] [place] [address] Referral ID Status Reason Start Date Expiration Date V isits Requested Visits Authorized Pending Review 06/09/2023 06/08/2024 1 1 * CV Imaging (Routine) - Pending Review Specialty Diagnoses / Procedures Referred By Contac t Referred To Contact Cardiology Diagnoses Irregular heart rate Obstructive sleep apnea syndrome Procedures Transthoracic Echo (TTE) Complete ME ECHO TTHRC R-T 2D W/WOM-MODE COMPL SPEC&COLR D [facility] 254 [facility] [address] [place] [address] Referral ID Status Reason Start Date Expiration Date Visits Requested Visits Authorized Pending Review Perform Procedure 06/09/2023 06/08/2024 1 1 * Cardiovascular (Routine) - Authorized Specialty Diagnoses / Procedures Referred By Contac t Referred To Contact Diagnoses Irregular heart rate Procedures ECG 12 Lead [facility] 254 [facility] [address] [place] [address] Referral ID Status Reason Start Date Expiration Date V isits Requested Visits Authorized [id number] Authorized 06/09/2023 06/08/2024 1 1 [facility] Work Phone: Reason for referral (narrative)* Consultation (Routine) - Pending Review Specialty Diagnoses / Procedures Referred By Contac t Referred To Contact Pain Medicine Diagnoses Lumbosacral radiculopathy at L5 Degenerative disc disease, lumbar Procedures ME OFFICE/OUTPATIENT [facility] 60 MINUTES Kade Richardson MD [address] [facility] [address] Chery [address] [place] [address] Adolfo Kang MD [address] [phone] Referral ID Status Reason Start Date Expiration Date Visits Requested Visits Authorized [id number] Pending Review Specialty Services Required 01/20/2024 07/18/2024 1 1 [facility] N[facility]* [place] Prior Authorization (Routine) - Authorized Specialty Diagnoses / Procedures Referred By Contac t Referred To Contact Diagnoses Frequent infections Hypogammaglobulinemia (HCC) Bilateral leg weakness Discoid lupus erythematosus Procedures GAMMAGARD LIQUID INJECTION Vera Najera MD [address] [facility] [facility] [place] [address] Phone: tel: fax: Hematology/Oncology [address] [facility] 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 Account Executive Expl 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 ACP-Advance Directive ACP-Power of Crystal Machining Coordinator Latest Code Status on File Code Status Date Activated Date Inactivated Comments Full Code 10/07/2020 8:32 AM Documents on File Type Date Recorded Patient Wholesale Account Executive Expl anation Advance Directive(s) 09/13/2015 8:36 AM Advance Directive Response Recorded Date/ Time Advance Directives No September 17 2:40pm Advance Directive Response Recorded Date/ Time Advance Directives No September 17 1:40pm Reason for Referral Specialty Diagnoses / Procedures Referred By Contac t Referred To Contact Infectious Diseases Diagnoses Positive blood cultures Procedures CONSULT TO INFECTIOUS DISEASES OFFICE/OUTPATIENT [facility] 60 MINUTES Vaibhav Carvalho, MAURILIO.[address] [place] [address] Referral ID Status Reason Start Date Expiration Date Visits Requested Visits Authorized [id number] Authorized PCP Requested Referral 06/13/2024 06/13/2025 1 1 Specialty Diagnoses / Procedures Referred By Contac t Referred To Contact Diagnoses Paroxysmal supraventricular tachycardia PAC (premature atrial contraction) Procedures ECG 12 Lead Lois Holm MD [address] [place] [address] 2, [address] [address] Referral ID Status Reason Start Date Expiration Date V isits Requested Visits Authorized [id number] Authorized 07/13/2023 07/12/2024 1 1 Specialty Diagnoses / Procedures Referred By Contac t Referred To Contact Cardiology Diagnoses Shortness of breath Paroxysmal supraventricular tachycardia PAC (premature atrial contraction) Procedures Follow Up In Cardiology Lois Holm MD [address] [place] [address] 2, [address] [address] Lois Holm MD [address] [place] [address] 2, [address] [address] Referral ID Status Reason Start Date Expiration Date V isits Requested Visits Authorized [id number] Authorized 07/13/2023 07/12/2024 1 1 Specialty Diagnoses / Procedures Referred By Contac t Referred To Contact Diagnoses Obesity, Class III, BMI 40-49.9 (morbid obesity) (HCC) Pre-diabetes Christie Phan MD [address] [place] [address] Referral ID Status Reason Start Date Expiration Date Visits Re quested Visits Authorized [id number] Closed 1 1 Specialty Diagnoses / Procedures Referred By Contac t Referred To Contact Diagnoses Wound healing, delayed Procedures CONSULT TO MEDICAL GENETICS - GENERAL OFFICE/OUTPATIENT [facility] 60-74 MINUTES MEDICAL GENETICS COUNSELING EACH 30 MINUTES Misty Nelson MD [facility] [place] [id number] [facility] Medicine [place] [address] [place] [address] Referral ID Status Reason Start Date Expiration Date Visits Requested Visits Authorized [id number] Authorized PCP Requested Referral Auto-Generate d Referral 2 03/10/2023 1 1 Specialty Diagnoses / Procedures Referred By Contac t Referred To Contact Neurology Diagnoses POTS (postural orthostatic tachycardia syndrome) Procedures CONSULT TO NEUROLOGY OFFICE/OUTPATIENT [facility] 60-74 MINUTES Christie Phan MD [address] [place] [address] Referral ID Status Reason Start Date Expiration Date Visits Requested Visits Authorized [id number] Authorized PCP Requested Referral 2 03/12/2023 1 1 Specialty Diagnoses / Procedures Referred By Contac t Referred To Contact Immunology Diagnoses Raised level of immunoglobulins Procedures CONSULT TO IMMUNOLOGY OFFICE/OUTPATIENT [facility] 60-74 MINUTES Christie Phan MD [address] [place] [address] Referral ID Status Reason Start Date Expiration Date V isits Requested Visits Authorized [id number] Closed PCP Requested Referral 03/09/2022 03/09/2023 1 1 Specialty Diagnoses / Procedures Referred By Contac t Referred To Contact [facility] Diagnoses Somnolence, daytime Snoring Procedures HOME SLEEP APNEA TEST (HSAT) SLEEP STD AIRFLOW HRT RATE&O2 SAT EFFORT UNATT Christie Phan MD [address] [place], [place] [id number] [facility] [place] [address] Referral ID Status Reason Start Date Expiration Date Visits Requested Visits Authorized [id number] Authorized Auto-Generat ed Referral 2 03/09/2023 1 1 Specialty Diagnoses / Procedures Referred By Contac t Referred To Contact Diagnoses Somnolence, daytime Chronic fatigue and malaise Obesity, unspecified classification, unspecified obesity type, unspecified whether serious comorbidity present Procedures CONSULT TO LIFESTYLE MEDICINE MD OFFICE/OUTPATIENT [facility] 60-74 MINUTES Vera Najera MD [address] [place] [address] [place] [address] Referral ID Status Reason Start Date Expiration Date V isits Requested Visits Authorized [id number] Closed PCP Requested Referral 03/04/2022 03/04/2023 1 1 Specialty Diagnoses / Procedures Referred By Nahid tran Referred To Contact Diagnoses Somnolence, daytime Snoring Procedures CONSULT TO SLEEP MEDICINE - ADULT OFFICE/OUTPATIENT [facility] 60-74 MINUTES Vera Najera MD [address] [place] [address] [place] [address] Referral ID Status Reason Start Date Expiration Date Visits Requested Visits Authorized [id number] Authorized PCP Requested Referral 2 03/04/2023 1 [...] Complaint and Reason for Visit Chief Complaint Admit Date back pain July 10, 2024 3:16pm Back Pain July 19, 2024 9:40am Reason for Visit Admit Date Lumbosacral spondylosis July 10 3:16pm Other chronic pain July 10, 2024 3:16pm Sacroiliitis July 10, 2024 3:16pm Chief Complaint cdiff cdiff Reason for Visit [...] spondylosis Other chronic pain Sacroiliitis Chief Complaint Admit Date back pain July 10, 2024 3:16pm Chief Complaint Admit Date back pain July 10, 2024 3:16pm Back Pain July 19, 2024 9:40am Back Pain July 19, 2024 11:04am FOLLOW UP AFTER MARK SI July 31, 2024 3:40pm Reason for Visit Admit Date Lumbosacral spondylosis July 10 025 3:16pm Other chronic pain July 10, 2024 3:16pm Sacroiliitis July 10, 2024 3:16pm Lumbosacral spondylosis July 31, 2024 3:40pm Other chronic pain July 31, 2024 3:4 0pm Sacroiliitis July 31, 2024 3:4 0pm Additional Source Comments INFORMATION SOURCE (unrecogn ized section and content) DATE CREATED AUTHOR 09/20/2018 [facility] DATE CREATED AUTHOR AUTHOR'S ORGANIZ ATION 12/10/2018 [facility] DATE CREATED AUTHOR AUTHOR'S ORGANIZ ATION 01/13/2019 [facility] DATE CREATED AUTHOR AUTHOR'S ORGANIZ ATION 06/28/2021 [facility] DATE CREATED AUTHOR AUTHOR'S ORGANIZ ATION 10/01/2022 [facility] DATE CREATED AUTHOR AUTHOR'S ORGANIZ ATION 03/10/2024 [facility] DATE CREATED AUTHOR AUTHOR'S ORGANIZ ATION 07/22/2024 [facility] DATE CREATED AUTHOR AUTHOR'S ORGANIZ ATION 07/23/2024 [facility] DATE CREATED AUTHOR AUTHOR'S ORGANIZ ATION 07/27/2024 [facility] DATE CREATED AUTHOR AUTHOR'S ORGANIZ ATION 07/27/2024 [facility] DATE CREATED AUTHOR AUTHOR'S ORGANIZ ATION 07/28/2024 [facility] Reason for Visit (unrecogniz ed section and content) Reason Comments Infection Follow Up Specialty Diagnoses / Procedures Referred By Nahid tran Referred To Contact Infectious Diseases Diagnoses Positive blood cultures Procedures CONSULT TO INFECTIOUS DISEASES OFFICE/OUTPATIENT [facility] 60 MINUTES Vaibhav Carvalho, GORE STITCHER.MANAGER INTELLIGENCE [address] [place] [address] [place] [address] Phone: tel: fax: Referral ID Status Reason Start Date Expiration Date V isits Requested Visits Authorized [id number] Closed PCP Requested Referral 06/13/2024 06/13/2025 1 1 Status Reason Specialty Diagnoses / Procedures Referre d By Contact Referred To Contact [facility] Reason Comments Pain ongoing generalized pain. [...] HIGH MDM 60-74 MINUTES Vera Najera MD [address] [facility] [facility] [place] [address] Referral ID Status Reason Start Date Expiration Date V isits Requested Visits Authorized [id number] Closed PCP Requested Referral 03/04/2022 03/04/2023 1 1 Reason Comments High Total serum IgM Anemia Reason Comments Consult Specialty Diagnoses / Procedures Referred By Contac t Referred To Contact Immunology Diagnoses Raised level of immunoglobulins Procedures CONSULT TO IMMUNOLOGY OFFICE/OUTPATIENT NEW HIGH MDM 60-74 MINUTES Christie Phan MD [address] [address] Referral ID Status Reason Start Date Expiration Date V isits Requested Visits Authorized [id number] Closed PCP Requested Referral 03/09/2022 03/09/2023 1 1 Reason Comments Pneumovax Reason Comments Refill Request Reason Comments Appointment Frit Mixer - Other Reason Comments Future Appointment Scheduling questions /concerns Reason Comments PAP Therapy Follow Up Reason Comments PAP Rx [place] [facility] [place] [...] heart rate Procedures ECG 12 Lead Michelle Jasmine, [employer] [address] [facility] [address] [place] [address] Referral ID Status Reason Start Date Expiration Date V isits Requested Visits Authorized [id number] Authorized 06/09/2023 06/08/2024 1 1 Reason Comments New Patient Visit Leg Swelling, test r esults from [facility] Specialty Diagnoses / Procedures Referred By Contac t Referred To Contact Diagnoses Paroxysmal supraventricular tachycardia PAC (premature atrial contraction) Procedures ECG 12 Lead Lois Holm MD [address] [facility], [address] [place] [address] Referral ID Status Reason Start Date Expiration Date V isits Requested Visits Authorized [id number] Authorized 07/13/2023 07/12/2024 1 1 Reason Onset [...] Conditions - Medication Refill 01/18/2024 Benlysta Reason Onset Date Comments SPP Inflammatory Conditions - Medication Refill 02/14/2024 Benlysta - NCA 09/2024 Reason Onset Date Comments SPP Inflammatory Conditions - Follow-up 02/14/20 Benlysta Insurance Authorization 02/14/2024 PA Jose al Submitted Reason Comments Orders PAP RX. Reason Comments Frit Mixer - Other Eds scheduling Reason Comments Med Change Request Reason Comments cmn Reason Onset Date Comments SPP Inflammatory Conditions - Medication Refill 03/13/2024 Benlysta - NCA 09/2024 Reason Comments Breast Problem Reason Comments Vaginal Bleeding Pt present today for bleeding when she wipes. Reason Onset Date Comments SPP Inflammatory Conditions - Medication Refill 04/11/2024 Benlysta Reason Comments Ear Problem Possible thrush, ear pain Reason Comments Med Refill Reason Onset Date Comments SPP Inflammatory Conditions - Medication Refill 05/12/2024 Benlysta Specialty Diagnoses / Procedures Referred By Contac t Referred To Contact Diagnoses Frequent infections Hypogammaglobulinemia (HCC) Bilateral leg weakness Discoid lupus erythematosus Procedures GAMMAGARD LIQUID INJECTION Vera Najera MD [address] [facility] [address] [address] Dre [facility] [address] [address] Referral ID Status Reason Start Date Expiration Date V isits Requested Visits Authorized [id number] Authorized 04/03/2024 10/01/2024 7 7 Reason Comments Well Women Visit Reason Onset Date Comments SPP Inflammatory Conditions - Medication Refill 06/06/2024 Benlysta Reason Comments Lab Orders Reason Comments Art Therapy Reason Comments Anemia Reason Comments Breath Hydrogen Test SIBO Breath Test Reason Onset Date Comments SPP Inflammatory Conditions - Medication Refill 06/29/2024 Benlysta Reason Comments poss raynauds Specialty Diagnoses / Procedures [facility] To Contact [facility] Surgery Diagnoses Cold extremities Pain of lower extremity, unspecified laterality Gay Enciso, [employer] [address] [place] [address] Phone: tel:[phone] fax: Hayden Arciniega MD [address] [place] [address] Phone: tel:[phone] fax: Referral ID Status Reason Start Date Expiration Date Visits Requested Visits Authorized [id number] Pending Review Specialty Services Required 03/15/2025 1 1 Reason Comments Mouth/Lip Problem Since February Reason Onset Date Comments SPP Inflammatory Conditions - Medication Refill 07/25/2024 Benlysta Reason Comments Follow-up Skin Check Reason Comments Annual Exam Specialty Diagnoses / Procedures Referred By Nahid Referred To Contact Cardiology Diagnoses Shortness of breath Paroxysmal supraventricular tachycardia (CMS-HCC) PAC (premature atrial contraction) Procedures Follow Up In Cardiology Lois Holm MD [address] [facility] [address], [address] [address] Phone: tel: fax: Lois Holm MD [address] [facility], [facility] [address] [place] [address] Phone: tel: fax: Referral ID Status Reason Start Date Expiration Date V isits Requested Visits Authorized [id number] Authorized 07/13/2023 07/12/2024 1 1 Reason Comments Med Change Request Ordered Prescriptions (unrec ognized section and content) [...] any alcohol or drug abuse patient.[facility] CenterIn the event this information is protected by the Federal Confidentiality of Alcohol and Drug Abuse Patient Records regulations: The Federal rules restrict any use of the information to criminally investigate or prosecute any alcohol or drug abuse patient.[facility] CenterIn the event this information is protected by the Federal Confidentiality of Alcohol and Drug Abuse Patient Records regulations: The Federal rules restrict any use of the information to criminally investigate or prosecute any alcohol or drug abuse patient.[facility] CenterIn the event this information is protected by the Federal Confidentiality of Alcohol and Drug Abuse Patient Records regulations: The Federal rules restrict any use of the information to criminally investigate or prosecute any alcohol or drug abuse patient.[facility] CenterIn the event this information is protected by the Federal Confidentiality of Alcohol and Drug Abuse Patient Records regulations: The Federal rules restrict any use of the information to criminally investigate or prosecute any alcohol or drug abuse patient.[facility] CenterIn the event this information is protected by the Federal Confidentiality of Alcohol and Drug Abuse Patient Records regulations: The Federal rules restrict any use of the information to criminally investigate or prosecute any alcohol or drug abuse patient.[facility] CenterIn the event this information is protected by the Federal Confidentiality of Alcohol and Drug Abuse Patient Records regulations: The Federal rules restrict any use of the information to criminally investigate or prosecute any alcohol or drug abuse patient.[facility] CenterIn the event this information is protected by the Federal Confidentiality of Alcohol and Drug Abuse Patient Records regulations: The Federal rules restrict any use of the information to criminally investigate or prosecute any alcohol or drug abuse patient.[facility] CenterIn the event this information is protected by the Federal Confidentiality of Alcohol and Drug Abuse Patient Records regulations: The Federal rules restrict any use of the information to criminally investigate or prosecute any alcohol or drug abuse patient.[facility] CenterIn the event this information is protected by the Federal Confidentiality of Alcohol and Drug Abuse Patient Records regulations: The Federal rules restrict any use of the information to criminally investigate or prosecute any alcohol or drug abuse patient.[facility] CenterIn the event this information is protected by the Federal Confidentiality of Alcohol and Drug Abuse Patient Records regulations: The Federal rules restrict any use of the information to criminally investigate or prosecute any alcohol or drug abuse patient.[facility] CenterIn the event this information is protected by the Federal Confidentiality of Alcohol and Drug Abuse Patient Records regulations: The Federal rules restrict any use of the information to criminally investigate or prosecute any alcohol or drug abuse patient.[facility] CenterIn the event this information is protected by the Federal Confidentiality of Alcohol and Drug Abuse Patient Records regulations: The Federal rules restrict any use of the information to criminally investigate or prosecute any alcohol or drug abuse patient.[facility] CenterIn the event this information is protected by the Federal Confidentiality of Alcohol and Drug Abuse Patient Records regulations: The Federal rules restrict any use of the information to criminally investigate or prosecute any alcohol or drug abuse patient.[facility] CenterIn the event this information is protected by the Federal Confidentiality of Alcohol and Drug Abuse Patient Records regulations: The Federal rules restrict any use of the information to criminally investigate or prosecute any alcohol or drug abuse patient.[facility] CenterIn the event this information is protected by the Federal Confidentiality of Alcohol and Drug Abuse Patient Records regulations: The Federal rules restrict any use of the information to criminally investigate or prosecute any alcohol or drug abuse patient.[facility] CenterIn the event this information is protected by the Federal Confidentiality of Alcohol and Drug Abuse Patient Records regulations: The Federal rules restrict any use of the information to criminally investigate or prosecute any alcohol or drug abuse patient.[facility] CenterIn the event this information is protected by the Federal Confidentiality of Alcohol and Drug Abuse Patient Records regulations: The Federal rules restrict any use of the information to criminally investigate or prosecute any alcohol or drug abuse patient.[facility] CenterIn the event this information is protected by the Federal Confidentiality of Alcohol and Drug Abuse Patient Records regulations: The Federal rules restrict any use of the information to criminally investigate or prosecute any alcohol or drug abuse patient.[facility] CenterIn the event this information is protected by the Federal Confidentiality of Alcohol and Drug Abuse Patient Records regulations: The Federal rules restrict any use of the information to criminally investigate or prosecute any alcohol or drug abuse patient.[facility] CenterIn the event this information is protected by the Federal Confidentiality of Alcohol and Drug Abuse Patient Records regulations: The Federal rules restrict any use of the information to criminally investigate or prosecute any alcohol or drug abuse patient.[facility] CenterIn the event this information is protected by the Federal Confidentiality of Alcohol and Drug Abuse Patient Records regulations: The Federal rules restrict any use of the information to criminally investigate or prosecute any alcohol or drug abuse patient.[facility] CenterIn the event this information is protected by the Federal Confidentiality of Alcohol and Drug Abuse Patient Records regulations: The Federal rules restrict any use of the information to criminally investigate or prosecute any alcohol or drug abuse patient.[facility] CenterIn the event this information is protected by the Federal Confidentiality of Alcohol and Drug Abuse Patient Records regulations: The Federal rules restrict any use of the information to criminally investigate or prosecute any alcohol or drug abuse patient.[facility] CenterIn the event this information is protected by the Federal Confidentiality of Alcohol and Drug Abuse Patient Records regulations: The Federal rules restrict any use of the information to criminally investigate or prosecute any alcohol or drug abuse patient.[facility] CenterIn the event this information is protected by the Federal Confidentiality of Alcohol and Drug Abuse Patient Records regulations: The Federal rules restrict any use of the information to criminally investigate or prosecute any alcohol or drug abuse patient.[facility] CenterIn the event this information is protected by the Federal Confidentiality of Alcohol and Drug Abuse Patient Records regulations: The Federal rules restrict any use of the information to criminally investigate or prosecute any alcohol or drug abuse patient.[facility] CenterIn the event this information is protected by the Federal Confidentiality of Alcohol and Drug Abuse Patient Records regulations: The Federal rules restrict any use of the information to criminally investigate or prosecute any alcohol or drug abuse patient.[facility] CenterIn the event this information is protected by the Federal Confidentiality of Alcohol and Drug Abuse Patient Records regulations: The Federal rules restrict any use of the information to criminally investigate or prosecute any alcohol or drug abuse patient.[facility] CenterIn the event this information is protected by the Federal Confidentiality of Alcohol and Drug Abuse Patient Records regulations: The Federal rules restrict any use of the information to criminally investigate or prosecute any alcohol or drug abuse patient.[facility] CenterIn the event this information is protected by the Federal Confidentiality of Alcohol and Drug Abuse Patient Records regulations: The Federal rules restrict any use of the information to criminally investigate or prosecute any alcohol or drug abuse patient.[facility] CenterIn the event this information is protected by the Federal Confidentiality of Alcohol and Drug Abuse Patient Records regulations: The Federal rules restrict any use of the information to criminally investigate or prosecute any alcohol or drug abuse patient.[facility] CenterIn the event this information is protected by the Federal Confidentiality of Alcohol and Drug Abuse Patient Records regulations: The Federal rules restrict any use of the information to criminally investigate or prosecute any alcohol or drug abuse patient.[facility] CenterIn the event this information is protected by the Federal Confidentiality of Alcohol and Drug Abuse Patient Records regulations: The Federal rules restrict any use of the information to criminally investigate or prosecute any alcohol or drug abuse patient.[facility] CenterIn the event this information is protected by the Federal Confidentiality of Alcohol and Drug Abuse Patient Records regulations: The Federal rules restrict any use of the information to criminally investigate or prosecute any alcohol or drug abuse patient.[facility] CenterIn the event this information is protected by the Federal Confidentiality of Alcohol and Drug Abuse Patient Records regulations: The Federal rules restrict any use of the information to criminally investigate or prosecute any alcohol or drug abuse patient.[facility] CenterIn the event this information is protected by the Federal Confidentiality of Alcohol and Drug Abuse Patient Records regulations: The Federal rules restrict any use of the information to criminally investigate or prosecute any alcohol or drug abuse patient.[facility] CenterIn the event this information is protected by the Federal Confidentiality of Alcohol and Drug Abuse Patient Records regulations: The Federal rules restrict any use of the information to criminally investigate or prosecute any alcohol or drug abuse patient.[facility] CenterIn the event this information is protected by the Federal Confidentiality of Alcohol and Drug Abuse Patient Records regulations: The Federal rules restrict any use of the information to criminally investigate or prosecute any alcohol or drug abuse patient.[facility] CenterIn the event this information is protected by the Federal Confidentiality of Alcohol and Drug Abuse Patient Records regulations: The Federal rules restrict any use of the information to criminally investigate or prosecute any alcohol or drug abuse patient.[facility] CenterIn the event this information is protected by the Federal Confidentiality of Alcohol and Drug Abuse Patient Records regulations: The Federal rules restrict any use of the information to criminally investigate or prosecute any alcohol or drug abuse patient.[facility] CenterIn the event this information is protected by the Federal Confidentiality of Alcohol and Drug Abuse Patient Records regulations: The Federal rules restrict any use of the information to criminally investigate or prosecute any alcohol or drug abuse patient.[facility] CenterIn the event this information is protected by the Federal Confidentiality of Alcohol and Drug Abuse Patient Records regulations: The Federal rules restrict any use of the information to criminally investigate or prosecute any alcohol or drug abuse patient.[facility] CenterIn the event this information is protected by the Federal Confidentiality of Alcohol and Drug Abuse Patient Records regulations: The Federal rules restrict any use of the information to criminally investigate or prosecute any alcohol or drug abuse patient.[facility] CenterIn the event this information is protected by the Federal Confidentiality of Alcohol and Drug Abuse Patient Records regulations: The Federal rules restrict any use of the information to criminally investigate or prosecute any alcohol or drug abuse patient.[facility] CenterIn the event this information is protected by the Federal Confidentiality of Alcohol and Drug Abuse Patient Records regulations: The Federal rules restrict any use of the information to criminally investigate or prosecute any alcohol or drug abuse patient.[facility] CenterIn the event this information is protected by the Federal Confidentiality of Alcohol and Drug Abuse Patient Records regulations: The Federal rules restrict any use of the information to criminally investigate or prosecute any alcohol or drug abuse patient.[facility] CenterIn the event this information is protected by the Federal Confidentiality of Alcohol and Drug Abuse Patient Records regulations: The Federal rules restrict any use of the information to criminally investigate or prosecute any alcohol or drug abuse patient.[facility] CenterIn the event this information is protected by the Federal Confidentiality of Alcohol and Drug Abuse Patient Records regulations: The Federal rules restrict any use of the information to criminally investigate or prosecute any alcohol or drug abuse patient.[facility] CenterIn the event this information is protected by the Federal Confidentiality of Alcohol and Drug Abuse Patient Records regulations: The Federal rules restrict any use of the information to criminally investigate or prosecute any alcohol or drug abuse patient.[facility] CenterIn the event this information is protected by the Federal Confidentiality of Alcohol and Drug Abuse Patient Records regulations: The Federal rules restrict any use of the information to criminally investigate or prosecute any alcohol or drug abuse patient.[facility] CenterIn the event this information is protected by the Federal Confidentiality of Alcohol and Drug Abuse Patient Records regulations: The Federal rules restrict any use of the information to criminally investigate or prosecute any alcohol or drug abuse patient.[facility] CenterIn the event this information is protected by the Federal Confidentiality of Alcohol and Drug Abuse Patient Records regulations: The Federal rules restrict any use of the information to criminally investigate or prosecute any alcohol or drug abuse patient.[facility] CenterIn the event this information is protected by the Federal Confidentiality of Alcohol and Drug Abuse Patient Records regulations: The Federal rules restrict any use of the information to criminally investigate or prosecute any alcohol or drug abuse patient.[facility] CenterIn the event this information is protected by the Federal Confidentiality of Alcohol and Drug Abuse Patient Records regulations: The Federal rules restrict any use of the information to criminally investigate or prosecute any alcohol or drug abuse patient.[facility] CenterIn the event this information is protected by the Federal Confidentiality of Alcohol and Drug Abuse Patient Records regulations: The Federal rules restrict any use of the information to criminally investigate or prosecute any alcohol or drug abuse patient.[facility] CenterIn the event this information is protected by the Federal Confidentiality of Alcohol and Drug Abuse Patient Records regulations: The Federal rules restrict any use of the information to criminally investigate or prosecute any alcohol or drug abuse patient.[facility] CenterIn the event this information is protected by the Federal Confidentiality of Alcohol and Drug Abuse Patient Records regulations: The Federal rules restrict any use of the information to criminally investigate or prosecute any alcohol or drug abuse patient.[facility] CenterIn the event this information is protected by the Federal Confidentiality of Alcohol and Drug Abuse Patient Records regulations: The Federal rules restrict any use of the information to criminally investigate or prosecute any alcohol or drug abuse patient.[facility] CenterIn the event this information is protected by the Federal Confidentiality of Alcohol and Drug Abuse Patient Records regulations: The Federal rules restrict any use of the information to criminally investigate or prosecute any alcohol or drug abuse patient.[facility] CenterIn the event this information is protected by the Federal Confidentiality of Alcohol and Drug Abuse Patient Records regulations: The Federal rules restrict any use of the information to criminally investigate or prosecute any alcohol or drug abuse patient.[facility] CenterIn the event this information is protected by the Federal Confidentiality of Alcohol and Drug Abuse Patient Records regulations: The Federal rules restrict any use of the information to criminally investigate or prosecute any alcohol or drug abuse patient.[facility] CenterIn the event this information is protected by the Federal Confidentiality of Alcohol and Drug Abuse Patient Records regulations: The Federal rules restrict any use of the information to criminally investigate or prosecute any alcohol or drug abuse patient.[facility] CenterIn the event this information is protected by the Federal Confidentiality of Alcohol and Drug Abuse Patient Records regulations: The Federal rules restrict any use of the information to criminally investigate or prosecute any alcohol or drug abuse patient.[facility] CenterIn the event this information is protected by the Federal Confidentiality of Alcohol and Drug Abuse Patient Records regulations: The Federal rules restrict any use of the information to criminally investigate or prosecute any alcohol or drug abuse patient.[facility] CenterIn the event this information is protected by the Federal Confidentiality of Alcohol and Drug Abuse Patient Records regulations: The Federal rules restrict any use of the information to criminally investigate or prosecute any alcohol or drug abuse patient.[facility] CenterIn the event this information is protected by the Federal Confidentiality of Alcohol and Drug Abuse Patient Records regulations: The Federal rules restrict any use of the information to criminally investigate or prosecute any alcohol or drug abuse patient.[facility] CenterIn the event this information is protected by the Federal Confidentiality of Alcohol and Drug Abuse Patient Records regulations: The Federal rules restrict any use of the information to criminally investigate or prosecute any alcohol or drug abuse patient.[facility] CenterIn the event this information is protected by the Federal Confidentiality of Alcohol and Drug Abuse Patient Records regulations: The Federal rules restrict any use of the information to criminally investigate or prosecute any alcohol or drug abuse patient.[facility] CenterIn the event this information is protected by the Federal Confidentiality of Alcohol and Drug Abuse Patient Records regulations: The Federal rules restrict any use of the information to criminally investigate or prosecute any alcohol or drug abuse patient.[facility] CenterIn the event this information is protected by the Federal Confidentiality of Alcohol and Drug Abuse Patient Records regulations: The Federal rules restrict any use of the information to criminally investigate or prosecute any alcohol or drug abuse patient.[facility] CenterIn the event this information is protected by the Federal Confidentiality of Alcohol and Drug Abuse Patient Records regulations: The Federal rules restrict any use of the information to criminally investigate or prosecute any alcohol or drug abuse patient.[facility] CenterIn the event this information is protected by the Federal Confidentiality of Alcohol and Drug Abuse Patient Records regulations: The Federal rules restrict any use of the information to criminally investigate or prosecute any alcohol or drug abuse patient.[facility] CenterIn the event this information is protected by the Federal Confidentiality of Alcohol and Drug Abuse Patient Records regulations: The Federal rules restrict any use of the information to criminally investigate or prosecute any alcohol or drug abuse patient.[facility] CenterIn the event this information is protected by the Federal Confidentiality of Alcohol and Drug Abuse Patient Records regulations: The Federal rules restrict any use of the information to criminally investigate or prosecute any alcohol or drug abuse patient.[facility] CenterIn the event this information is protected by the Federal Confidentiality of Alcohol and Drug Abuse Patient Records regulations: The Federal rules restrict any use of the information to criminally investigate or prosecute any alcohol or drug abuse patient.[facility] CenterIn the event this information is protected by the Federal Confidentiality of Alcohol and Drug Abuse Patient Records regulations: The Federal rules restrict any use of the information to criminally investigate or prosecute any alcohol or drug abuse patient.[facility] CenterIn the event this information is protected by the Federal Confidentiality of Alcohol and Drug Abuse Patient Records regulations: The Federal rules restrict any use of the information to criminally investigate or prosecute any alcohol or drug abuse patient.[facility] CenterIn the event this information is protected by the Federal Confidentiality of Alcohol and Drug Abuse Patient Records regulations: The Federal rules restrict any use of the information to criminally investigate or prosecute any alcohol or drug abuse patient.[facility] CenterIn the event this information is protected by the Federal Confidentiality of Alcohol and Drug Abuse Patient Records regulations: The Federal rules restrict any use of the information to criminally investigate or prosecute any alcohol or drug abuse patient.[facility] CenterIn the event this information is protected by the Federal Confidentiality of Alcohol and Drug Abuse Patient Records regulations: The Federal rules restrict any use of the information to criminally investigate or prosecute any alcohol or drug abuse patient.[facility] CenterIn the event this information is protected by the Federal Confidentiality of Alcohol and Drug Abuse Patient Records regulations: The Federal rules restrict any use of the information to criminally investigate or prosecute any alcohol or drug abuse patient.[facility] CenterIn the event this information is protected by the Federal Confidentiality of Alcohol and Drug Abuse Patient Records regulations: The Federal rules restrict any use of the information to criminally investigate or prosecute any alcohol or drug abuse patient.[facility] CenterIn the event this information is protected by the Federal Confidentiality of Alcohol and Drug Abuse Patient Records regulations: The Federal rules restrict any use of the information to criminally investigate or prosecute any alcohol or drug abuse patient.[facility] CenterIn the event this information is protected by the Federal Confidentiality of Alcohol and Drug Abuse Patient Records regulations: The Federal rules restrict any use of the information to criminally investigate or prosecute any alcohol or drug abuse patient.[facility] CenterIn the event this information is protected by the Federal Confidentiality of Alcohol and Drug Abuse Patient Records regulations: The Federal rules restrict any use of the information to criminally investigate or prosecute any alcohol or drug abuse patient.[facility] CenterIn the event this information is protected by the Federal Confidentiality of Alcohol and Drug Abuse Patient Records regulations: The Federal rules restrict any use of the information to criminally investigate or prosecute any alcohol or drug abuse patient.[facility] CenterIn the event this information is protected by the Federal Confidentiality of Alcohol and Drug Abuse Patient Records regulations: The Federal rules restrict any use of the information to criminally investigate or prosecute any alcohol or drug abuse patient.[facility] CenterIn the event this information is protected by the Federal Confidentiality of Alcohol and Drug Abuse Patient Records regulations: The Federal rules restrict any use of the information to criminally investigate or prosecute any alcohol or drug abuse patient.[facility] CenterIn the event this information is protected by the Federal Confidentiality of Alcohol and Drug Abuse Patient Records regulations: The Federal rules restrict any use of the information to criminally investigate or prosecute any alcohol or drug abuse patient.[facility] CenterIn the event this information is protected by the Federal Confidentiality of Alcohol and Drug Abuse Patient Records regulations: The Federal rules restrict any use of the information to criminally investigate or prosecute any alcohol or drug abuse patient.[facility] CenterIn the event this information is protected by the Federal Confidentiality of Alcohol and Drug Abuse Patient Records regulations: The Federal rules restrict any use of the information to criminally investigate or prosecute any alcohol or drug abuse patient.[facility] CenterIn the event this information is protected by the Federal Confidentiality of Alcohol and Drug Abuse Patient Records regulations: The Federal rules restrict any use of the information to criminally investigate or prosecute any alcohol or drug abuse patient.[facility] CenterIn the event this information is protected by the Federal Confidentiality of Alcohol and Drug Abuse Patient Records regulations: The Federal rules restrict any use of the information to criminally investigate or prosecute any alcohol or drug abuse patient.[facility] CenterIn the event this information is protected by the Federal Confidentiality of Alcohol and Drug Abuse Patient Records regulations: The Federal rules restrict any use of the information to criminally investigate or prosecute any alcohol or drug abuse patient.[facility] CenterIn the event this information is protected by the Federal Confidentiality of Alcohol and Drug Abuse Patient Records regulations: The Federal rules restrict any use of the information to criminally investigate or prosecute any alcohol or drug abuse patient.[facility] CenterIn the event this information is protected by the Federal Confidentiality of Alcohol and Drug Abuse Patient Records regulations: The Federal rules restrict any use of the information to criminally investigate or prosecute any alcohol or drug abuse patient.[facility] CenterIn the event this information is protected by the Federal Confidentiality of Alcohol and Drug Abuse Patient Records regulations: The Federal rules restrict any use of the information to criminally investigate or prosecute any alcohol or drug abuse patient.[facility] CenterIn the event this information is protected by the Federal Confidentiality of Alcohol and Drug Abuse Patient Records regulations: The Federal rules restrict any use of the information to criminally investigate or prosecute any alcohol or drug abuse patient.[facility] CenterIn the event this information is protected by the Federal Confidentiality of Alcohol and Drug Abuse Patient Records regulations: The Federal rules restrict any use of the information to criminally investigate or prosecute any alcohol or drug abuse patient.[facility] CenterIn the event this information is protected by the Federal Confidentiality of Alcohol and Drug Abuse Patient Records regulations: The Federal rules restrict any use of the information to criminally investigate or prosecute any alcohol or drug abuse patient.[facility] CenterIn the event this information is protected by the Federal Confidentiality of Alcohol and Drug Abuse Patient Records regulations: The Federal rules restrict any use of the information to criminally investigate or prosecute any alcohol or drug abuse patient.[facility] CenterIn the event this information is protected by the Federal Confidentiality of Alcohol and Drug Abuse Patient Records regulations: The Federal rules restrict any use of the information to criminally investigate or prosecute any alcohol or drug abuse patient.[facility] CenterIn the event this information is protected by the Federal Confidentiality of Alcohol and Drug Abuse Patient Records regulations: The Federal rules restrict any use of the information to criminally investigate or prosecute any alcohol or drug abuse patient.[facility] CenterIn the event this information is protected by the Federal Confidentiality of Alcohol and Drug Abuse Patient Records regulations: The Federal rules restrict any use of the information to criminally investigate or prosecute any alcohol or drug abuse patient.[facility] CenterIn the event this information is protected by the Federal Confidentiality of Alcohol and Drug Abuse Patient Records regulations: The Federal rules restrict any use of the information to criminally investigate or prosecute any alcohol or drug abuse patient.[facility] CenterIn the event this information is protected by the Federal Confidentiality of Alcohol and Drug Abuse Patient Records regulations: The Federal rules restrict any use of the information to criminally investigate or prosecute any alcohol or drug abuse patient.[facility] CenterIn the event this information is protected by the Federal Confidentiality of Alcohol and Drug Abuse Patient Records regulations: The Federal rules restrict any use of the information to criminally investigate or prosecute any alcohol or drug abuse patient.[facility] CenterIn the event this information is protected by the Federal Confidentiality of Alcohol and Drug Abuse Patient Records regulations: The Federal rules restrict any use of the information to criminally investigate or prosecute any alcohol or drug abuse patient.[facility] CenterIn the event this information is protected by the Federal Confidentiality of Alcohol and Drug Abuse Patient Records regulations: The Federal rules restrict any use of the information to criminally investigate or prosecute any alcohol or drug abuse patient.[facility] CenterIn the event this information is protected by the Federal Confidentiality of Alcohol and Drug Abuse Patient Records regulations: The Federal rules restrict any use of the information to criminally investigate or prosecute any alcohol or drug abuse patient.[facility] CenterIn the event this information is protected by the Federal Confidentiality of Alcohol and Drug Abuse Patient Records regulations: The Federal rules restrict any use of the information to criminally investigate or prosecute any alcohol or drug abuse patient.[facility] CenterIn the event this information is protected by the Federal Confidentiality of Alcohol and Drug Abuse Patient Records regulations: The Federal rules restrict any use of the information to criminally investigate or prosecute any alcohol or drug abuse patient.[facility] CenterIn the event this information is protected by the Federal Confidentiality of Alcohol and Drug Abuse Patient Records regulations: The Federal rules restrict any use of the information to criminally investigate or prosecute any alcohol or drug abuse patient.[facility] CenterIn the event this information is protected by the Federal Confidentiality of Alcohol and Drug Abuse Patient Records regulations: The Federal rules restrict any use of the information to criminally investigate or prosecute any alcohol or drug abuse patient.[facility] CenterIn the event this information is protected by the Federal Confidentiality of Alcohol and Drug Abuse Patient Records regulations: The Federal rules restrict any use of the information to criminally investigate or prosecute any alcohol or drug abuse patient.[facility] CenterIn the event this information is protected by the Federal Confidentiality of Alcohol and Drug Abuse Patient Records regulations: The Federal rules restrict any use of the information to criminally investigate or prosecute any alcohol or drug abuse patient.[facility] CenterIn the event this information is protected by the Federal Confidentiality of Alcohol and Drug Abuse Patient Records regulations: The Federal rules restrict any use of the information to criminally investigate or prosecute any alcohol or drug abuse patient.[facility] CenterIn the event this information is protected by the Federal Confidentiality of Alcohol and Drug Abuse Patient Records regulations: The Federal rules restrict any use of the information to criminally investigate or prosecute any alcohol or drug abuse patient.[facility] CenterIn the event this information is protected by the Federal Confidentiality of Alcohol and Drug Abuse Patient Records regulations: The Federal rules restrict any use of the information to criminally investigate or prosecute any alcohol or drug abuse patient.[facility] CenterIn the event this information is protected by the Federal Confidentiality of Alcohol and Drug Abuse Patient Records regulations: The Federal rules restrict any use of the information to criminally investigate or prosecute any alcohol or drug abuse patient.[facility] CenterIn the event this information is protected by the Federal Confidentiality of Alcohol and Drug Abuse Patient Records regulations: The Federal rules restrict any use of the information to criminally investigate or prosecute any alcohol or drug abuse patient.[facility] CenterIn the event this information is protected by the Federal Confidentiality of Alcohol and Drug Abuse Patient Records regulations: The Federal rules restrict any use of the information to criminally investigate or prosecute any alcohol or drug abuse patient.[facility] CenterIn the event this information is protected by the Federal Confidentiality of Alcohol and Drug Abuse Patient Records regulations: The Federal rules restrict any use of the information to criminally investigate or prosecute any alcohol or drug abuse patient.[facility] CenterIn the event this information is protected by the Federal Confidentiality of Alcohol and Drug Abuse Patient Records regulations: The Federal rules restrict any use of the information to criminally investigate or prosecute any alcohol or drug abuse patient.[facility] CenterIn the event this information is protected by the Federal Confidentiality of Alcohol and Drug Abuse Patient Records regulations: The Federal rules restrict any use of the information to criminally investigate or prosecute any alcohol or drug abuse patient.[facility] CenterIn the event this information is protected by the Federal Confidentiality of Alcohol and Drug Abuse Patient Records regulations: The Federal rules restrict any use of the information to criminally investigate or prosecute any alcohol or drug abuse patient.[facility] CenterIn the event this information is protected by the Federal Confidentiality of Alcohol and Drug Abuse Patient Records regulations: The Federal rules restrict any use of the information to criminally investigate or prosecute any alcohol or drug abuse patient.[facility] CenterIn the event this information is protected by the Federal Confidentiality of Alcohol and Drug Abuse Patient Records regulations: The Federal rules restrict any use of the information to criminally investigate or prosecute any alcohol or drug abuse patient.[facility] CenterIn the event this information is protected by the Federal Confidentiality of Alcohol and Drug Abuse Patient Records regulations: The Federal rules restrict any use of the information to criminally investigate or prosecute any alcohol or drug abuse patient.[facility] CenterIn the event this information is protected by the Federal Confidentiality of Alcohol and Drug Abuse Patient Records regulations: The Federal rules restrict any use of the information to criminally investigate or prosecute any alcohol or drug abuse patient.[facility] CenterIn the event this information is protected by the Federal Confidentiality of Alcohol and Drug Abuse Patient Records regulations: The Federal rules restrict any use of the information to criminally investigate or prosecute any alcohol or drug abuse patient.[facility] CenterIn the event this information is protected by the Federal Confidentiality of Alcohol and Drug Abuse Patient Records regulations: The Federal rules restrict any use of the information to criminally investigate or prosecute any alcohol or drug abuse patient.[facility] CenterIn the event this information is protected by the Federal Confidentiality of Alcohol and Drug Abuse Patient Records regulations: The Federal rules restrict any use of the information to criminally investigate or prosecute any alcohol or drug abuse patient.[facility] CenterIn the event this information is protected by the Federal Confidentiality of Alcohol and Drug Abuse Patient Records regulations: The Federal rules restrict any use of the information to criminally investigate or prosecute any alcohol or drug abuse patient.[facility] CenterIn the event this information is protected by the Federal Confidentiality of Alcohol and Drug Abuse Patient Records regulations: The Federal rules restrict any use of the information to criminally investigate or prosecute any alcohol or drug abuse patient.[facility] CenterIn the event this information is protected by the Federal Confidentiality of Alcohol and Drug Abuse Patient Records regulations: The Federal rules restrict any use of the information to criminally investigate or prosecute any alcohol or drug abuse patient.[facility] Care Teams (unrecognized sec tion [...] November 04, 2023 End: November 04, 2023 Basket Mender Relationship Specialty Start Date End Date Gay Enciso, GORE STITCHER.MANAGER INTELLIGENCE [address] [id number] PCP - General Family Practice 10/24/21 Basket Mender Relationship Specialty Start Date End Date Gay Enciso, GORE STITCHER.MANAGER INTELLIGENCE [address] [place] [address] PCP - General Family Medicine 10/24/21 Manuel Ferris MD [address] [place] [address] Referring Family Medicine 02/12/22 Basket Mender Relationship Specialty Start Date End Date Manuel Ferris MD [address] [place] [address] PCP - General Family Medicine 02/27/22 Manuel Ferris MD [address] [facility] [place] [address] Referring Family Medicine 02/12/22 Basket Mender Relationship Specialty Start Date End Date Manuel Ferris MD [address] [facility] [place] [address] PCP - General Family Medicine 02/27/22 Manuel Ferris MD [address] [facility] [place] [address] Referring Family Medicine 02/12/22 Basket Mender Relationship Specialty Start Date End Date Manuel Ferris MD [address] [facility] [place] [address] PCP - General Family Medicine 02/27/22 Manuel Ferris MD [address] [facility] [place] [address] Referring Family Medicine 02/12/22 Basket Mender Relationship Specialty Start Date End Date Manuel Ferris MD [address] [facility] [place] [address] PCP - General Family Medicine 02/27/22 Manuel Ferris MD [address] [facility] [place] [address] Referring Family Medicine 02/12/22 Basket Mender Relationship Specialty Start Date End Date Manuel Ferris MD [address] [place] [facility] [place] [address] PCP - General Family Medicine 02/27/22 Manuel Ferris MD [address] [facility] [place] [address] Referring Family Medicine 02/12/22 Basket Mender Relationship Specialty Start Date End Date Manuel Ferris MD [address] [facility] [place] [address] PCP - General Family Medicine 02/27/22 Manuel Ferris MD [address] [facility] [place] [address] Referring Family Medicine 02/12/22 Basket Mender Relationship Specialty Start Date End Date Manuel Ferris MD [address] [facility] [place] [address] PCP - General Family Medicine 02/27/22 Manuel Ferris MD [address] [facility] [place] [address] Referring Family Medicine 02/12/22 Basket Mender Relationship Specialty Start Date End Date Manuel Ferris MD [address] [facility] [place] [address] PCP - General Family Medicine 02/27/22 Manuel Ferris MD [address] [facility] [place] [address] Referring Family Medicine 02/12/22 Basket Mender Relationship Specialty Start Date End Date Manuel Ferris MD [address] [facility] [place] [address] PCP - General Family Medicine 02/27/22 Manuel Ferris MD [address] [facility] [place] [address] Referring Family Medicine 02/12/22 Basket Mender Relationship Specialty Start Date End Date Manuel Ferris MD [address] [facility] [place] [address] PCP - General Family Medicine 02/27/22 Manuel Ferris MD [address] [facility] [place] [address] Referring Family Medicine 02/12/22 Basket Mender Relationship Specialty Start Date End Date Manuel Ferris MD [address] [facility] [place] [address] PCP - General Family Medicine 02/27/22 Manuel Ferris MD [address] [facility] [place] [address] Referring Family Medicine 02/12/22 Basket Mender Relationship Specialty Start Date End Date Manuel Ferris MD [address] [facility] [place] [address] PCP - General Family Medicine 02/27/22 Manuel Ferris MD [address] [facility] [place] [address] Referring Family Medicine 02/12/22 Basket Mender Relationship Specialty Start Date End Date Manuel Ferris MD [address] [facility] [place] [address] PCP - General Family Medicine 02/27/22 Manuel Ferris MD [address] [facility] [place] [address] Referring Family Medicine 02/12/22 Basket Mender Relationship Specialty Start Date End Date Manuel Ferris MD [address] [facility] [place] [address] PCP - General Family Medicine 02/27/22 Manuel Ferris MD [address] [facility] [place] [address] Referring Family Medicine 02/12/22 Basket Mender Relationship Specialty Start Date End Date Manuel Ferris MD [address] [facility] [place] [address] PCP - General Family Medicine 02/27/22 Manuel Ferris MD [address] [facility] [place] [address] Referring Family Medicine 02/12/22 Basket Mender Relationship Specialty Start Date End Date Manuel Ferris MD [address] [facility] [place] [address] PCP - General Family Medicine 02/27/22 Manuel Ferris MD [address] [facility] [place] [address] Referring Family Medicine 02/12/22 Basket Mender Relationship Specialty Start Date End Date Manuel Ferris MD [address] [facility] [place] [address] PCP - General Family Medicine 02/27/22 Manuel Ferris MD [address] [facility] [place] [address] Referring Family Medicine 02/12/22 Basket Mender Relationship Specialty Start Date End Date Manuel Ferris MD [address] [facility] [place] [address] PCP - General Family Medicine 02/27/22 Manuel Ferris MD [address] [facility] [place] [address] Referring Family Medicine 02/12/22 Basket Mender Relationship Specialty Start Date End Date Manuel Ferris MD [address] [facility] [place] [address] PCP - General Family Medicine 02/27/22 Manuel Ferris MD [address] [facility] [place] [address] Referring Family Medicine 02/12/22 Basket Mender Relationship Specialty Start Date End Date Manuel Ferris MD [address] [facility] [place] [address] PCP - General Family Medicine 02/27/22 Manuel Ferris MD [address] [place] [address] Referring Family Medicine 02/12/22 Basket Mender Relationship Specialty Start Date End Date Manuel Ferris MD [address] [place] [address] PCP - General Family Medicine 02/27/22 Manuel Ferris MD [address] [place] [address] Referring Family Medicine 02/12/22 Basket Mender Relationship Specialty Start Date End Date Manuel Ferris MD PCP - General Family Medicine 02/27/22 Manuel Ferris MD Referring Family Medicine 02/12/22 Basket Mender Relationship Specialty Start Date End Date Manuel Ferris MD PCP - General Family Medicine 02/27/22 Manuel Ferris MD Referring Family Medicine 02/12/22 Basket Mender Relationship Specialty Start Date End Date Manuel Ferris MD PCP - General Family Medicine 02/27/22 Manuel Ferris MD Referring Family Medicine 02/12/22 Basket Mender Relationship Specialty Start Date End Date Manuel Ferris MD PCP - General Family Medicine 02/27/22 Manuel Ferris MD Referring Family Medicine 02/12/22 Basket Mender Relationship Specialty Start Date End Date Manuel Ferris MD PCP - General Family Medicine 02/27/22 Manuel Ferris MD Referring Family Medicine 02/12/22 Basket Mender Relationship Specialty Start Date End Date Manuel Ferris MD PCP - General Family Medicine 02/27/22 Manuel Ferris MD Referring Family Medicine 02/12/22 Basket Mender Relationship Specialty Start Date End Date Manuel Ferris MD PCP - General Family Medicine 02/27/22 Manuel Ferris MD Referring Family Medicine 02/12/22 Basket Mender Relationship Specialty Start Date End Date Manuel Ferris MD PCP - General Family Medicine 02/27/22 Manuel Ferris MD Referring Family Medicine 02/12/22 Basket Mender Relationship Specialty Start Date End Date Manuel Ferris MD PCP - General Family Medicine 02/27/22 Manuel Ferris MD Referring Family Medicine 02/12/22 Basket Mender Relationship Specialty Start Date End Date Manuel Ferris MD PCP - General Family Medicine 02/27/22 Manuel Ferris MD Referring Family Medicine 02/12/22 Basket Mender Relationship Specialty Start Date End Date Manuel Ferris MD PCP - General Family Medicine 02/27/22 Manuel Ferris MD Referring Family Medicine 02/12/22 Basket Mender Relationship Specialty Start Date End Date Manuel Ferris MD PCP - General Family Medicine 02/27/22 Manuel Ferris MD Referring Family Medicine 02/12/22 Basket Mender Relationship Specialty Start Date End Date Manuel Ferris MD PCP - General Family Medicine 02/27/22 Manuel Ferris MD Referring Family Medicine 02/12/22 Basket Mender Relationship Specialty Start Date End Date Manuel Ferris MD PCP - General Family Medicine 02/27/22 Manuel Ferris MD Referring Family Medicine 02/12/22 Basket Mender Relationship Specialty Start Date End Date Manuel Ferris MD PCP - General Family Medicine 02/27/22 Manuel Ferris MD Referring Family Medicine 02/12/22 Basket Mender Relationship Specialty Start Date End Date Manuel Ferris MD PCP - General Family Medicine 02/27/22 Manuel Ferris MD Referring Family Medicine 02/12/22 Basket Mender Relationship Specialty Start Date End Date Manuel Ferris MD PCP - General Family Medicine 02/27/22 Manuel Ferris MD Referring Family Medicine 02/12/22 Basket Mender Relationship Specialty Start Date End Date Manuel Ferris MD PCP - General Family Medicine 02/27/22 Manuel Ferris MD Referring Family Medicine 02/12/22 Basket Mender Relationship Specialty Start Date End Date Manuel Ferris MD PCP - General Family Medicine 02/27/22 Manuel Ferris MD Referring Family Medicine 02/12/22 Basket Mender Relationship Specialty Start Date End Date Manuel Ferris MD PCP - General Family Medicine 02/27/22 Manuel Ferris MD Referring Family Medicine 02/12/22 Basket Mender Relationship Specialty Start Date End Date Manuel Ferris MD PCP - General Family Medicine 02/27/22 Manuel Ferris MD Referring Family Medicine 02/12/22 Basket Mender Relationship Specialty Start Date End Date Manuel Ferris MD PCP - General Family Medicine 02/27/22 Manuel Ferris MD Referring Family Medicine 02/12/22 Basket Mender Relationship Specialty Start Date End Date Manuel Ferris MD PCP - General Family Medicine 02/27/22 Manuel Ferris MD Referring Family Medicine 02/12/22 Basket Mender Relationship Specialty Start Date End Date Manuel Ferris MD PCP - General Family Medicine 02/27/22 Manuel Ferris MD Referring Family Medicine 02/12/22 Basket Mender Relationship Specialty Start Date End Date Manuel Ferris MD PCP - General Family Medicine 02/27/22 Manuel Ferris MD Referring Family Medicine 02/12/22 Basket Mender Relationship Specialty Start Date End Date Manuel Ferris MD PCP - General Family Medicine 02/27/22 Manuel Ferris MD Referring Family Medicine 02/12/22 Basket Mender Relationship Specialty Start Date End Date Charles Nicole DO [address] [place] [address] PCP - General 10/22/18 Michelle Jasmine, GORE STITCHER-MANAGER INTELLIGENCE [address] [facility] [address] [place] [address] Nurse Practitioner Cardiology 06/08/23 Basket Mender Relationship Specialty Start Date End Date Gay Enciso, GORE STITCHER-MANAGER INTELLIGENCE [address] [place] [address] PCP - General 07/13/23 Michelle Jasmine, GORE STITCHER-MANAGER INTELLIGENCE [address] [facility] [address] [place] [address] Nurse Practitioner Cardiology 06/08/23 Aurora Patel MD [address] [facility] [address] [place] [address] Consulting Physician Cardiology 06/23/23 Basket Mender Relationship Specialty Start Date End Date Manuel Ferris MD PCP - General Family Medicine 02/27/22 Manuel Ferris MD Referring Family Medicine 02/12/22 Basket Mender Relationship Specialty Start Date End Date Manuel Ferris MD PCP - General Family Medicine 02/27/22 Manuel Ferris MD Referring Family Medicine 02/12/22 Team Status: Active Member Role Status Dates Lui Salomon MD Primary Care Provider Active Start: July 28, 2023 Virgil Green MD Attending Provider Active S tart: July 28, 2023 Basket Mender Relationship Specialty Start Date End Date Manuel Ferris MD PCP - General Family Medicine 02/27/22 Manuel Ferris MD Referring Family Medicine 02/12/22 Team Status: Inactive Member Role Status Dates Lui Salomon MD Primary Care Provider Active Start: December 16, 2023 End: December 16, 2023 Mirela Kelsey MD Attending Provider Active Sta rt: December 16, 2023 End: December 16, 2023 Basket Mender Relationship Specialty Start Date End Date Manuel Ferris MD PCP - General Family Medicine 02/27/22 Manuel Ferris MD Referring Family Medicine 02/12/22 Basket Mender Relationship Specialty Start Date End Date Manuel Ferris MD PCP - General Family Medicine 02/27/22 Manuel Ferris MD Referring Family Medicine 02/12/22 Basket Mender Relationship Specialty Start Date End Date Manuel Ferris MD PCP - General Family Medicine 02/27/22 Manuel Ferris MD Referring Family Medicine 02/12/22 Basket Mender Relationship Specialty Start Date End Date Manuel [...] Team Status: Active Member Role Status Dates Gay Enciso NITROGLYCERIN SEPARATOR OPERATOR-C Primary Care Provider Active Team Status: Inactive Member Role Status Dates Adolfo Kang MD Attending Provider Active Sta rt: February 16, 2024 End: February 16, 2024 WALESKA Galloway Primary Care Provider Active Start: February 16, 2024 End: February 16, 2024 Team Status: Active Member Role Status Dates Adolfo Kang MD Attending Provider, Other Provider Active Start: February 16, 2024 Gay Enciso NP-C Primary Care Provider Active Start: February 16, 2024 Team Status: Inactive Member Role Status Dates Adolfo Kang MD Attending Provider Active Sta rt: February 28, 2024 End: February 28, 2024 Gay Enciso NP-C Primary Care Provider Active Start: February 28, 2024 End: February 28, 2024 Basket Mender Relationship Specialty Start Date End Date Charles Nicole MD [address] [place] [address] PCP - General Family Medicine 02/09/24 Team Status: Inactive Member Role Status Dates Gay Enciso NP-C Primary Care Provider Active Start: March 16, 2024 End: March 16, 2024 Bandar Portillo APRN Attending Provider Active Start: March 16, 2024 End: March 16, 2024 Basket Mender Relationship Specialty Start Date End Date Charles Nicole MD [address] [place] [address] PCP - General Family Medicine 02/09/24 Basket Mender Relationship Specialty Start Date End Date Charles Nicole MD [address] [place] [address] PCP - General Family Medicine 02/09/24 Basket Mender Relationship Specialty Start Date End Date Charles Nicole MD [address] [place] [address] PCP - General Family Medicine 02/09/24 Basket Mender Relationship Specialty Start Date End Date Charles Nicole MD [address] [place] [address] PCP - General Family Medicine 02/09/24 Basket Mender Relationship Specialty Start Date End Date Charles Nicole MD [address] [place] [address] PCP - General Family Medicine 02/09/24 Basket Mender Relationship Specialty Start Date End Date Manuel Ferris MD PCP - General Family Medicine 02/27/22 Manuel Ferris MD Referring Family Medicine 02/12/22 Basket Mender Relationship Specialty Start Date End Date Charles Nicole MD [address] [place] [address] PCP - General Family Medicine 02/09/24 Basket Mender Relationship Specialty Start Date End Date Charles Nicole MD [address] [place] [address] PCP - General Family Medicine 02/09/24 Basket Mender Relationship Specialty Start Date End Date Charles Nicole MD [address] [place] [address] PCP - General Family Medicine 02/09/24 Basket Mender Relationship Specialty Start Date End Date Charles Nicole MD [address] [place] [address] PCP - General Family Medicine 02/09/24 Basket Mender Relationship Specialty Start Date End Date Manuel Ferris MD PCP - General Family Medicine 02/27/22 Manuel Ferris MD Referring Family Medicine 02/12/22 Basket Mender Relationship Specialty Start Date End Date Charles Nicole MD [address] [place] [address] PCP - General Family Medicine 02/09/24 Basket Mender Relationship Specialty Start Date End Date Manuel Ferris MD PCP - General Family Medicine 02/27/22 Manuel Ferris MD Referring Family Medicine 02/12/22 Basket Mender Relationship Specialty Start Date End Date Manuel Ferris MD PCP - General Family Medicine 02/27/22 Manuel Ferris MD Referring Family Medicine 02/12/22 Basket Mender Relationship Specialty Start Date End Date Charles Nicole MD [address] [place] [address] PCP - General Family Medicine 02/09/24 Basket Mender Relationship Specialty Start Date End Date Manuel Ferris MD PCP - General Family Medicine 02/27/22 Manuel Ferris MD Referring Family Medicine 02/12/22 Manuel Ferris MD [address] [place] [address] Referring Family Medicine 07/06/24 Team Status: Inactive Member Role Status Dates Gay Enciso NP-C Primary Care Provider Active Start: July 10, 2024 End: July 10, 2024 Adolfo Kang MD Attending Provider Active Sta rt: July 10, 2024 End: July 10, 2024 Basket Mender Relationship Specialty Start Date End Date Manuel Ferris MD PCP - General Family Medicine 02/27/22 Manuel Ferris MD Referring Family Medicine 02/12/22 Manuel Ferris MD [address] [place] [address] Referring Family Medicine 07/06/24 Basket Mender Relationship Specialty Start Date End Date Manuel Ferris MD PCP - General Family Medicine 02/27/22 Manuel Ferris MD Referring Family Medicine 02/12/22 Manuel Ferris MD [address] [place] [address] Referring Family Medicine 07/06/24 Team Status: Inactive Member Role Status Dates Gay Enciso NP-C Primary Care Provider Active Start: July 19, 2024 End: July 19, 2024 Adolfo Kang MD Attending Provider Active Sta rt: July 19, 2024 End: July 19, 2024 Basket Mender Relationship Specialty Start Date End Date Gay Enciso MD [address] [place] [address] Referring Physician Family Medicine 07/18/24 Basket Mender Relationship Specialty Start Date End Date Manuel Ferris MD PCP - General Family Medicine 02/27/22 Manuel Ferris MD Referring Family Medicine 02/12/22 Manuel Ferris MD [address] [place] [address] Referring Family Medicine 07/06/24 Basket Mender Relationship Specialty Start Date End Date Gay Enciso MD [address] [place] [address] Referring Physician Family Medicine 07/18/24 Basket Mender Relationship Specialty Start Date End Date Gay Enciso APRN-MANAGER INTELLIGENCE [address] [place] [address] PCP - General 07/13/23 Michelle Jasmine, GORE STITCHER-MANAGER INTELLIGENCE Nurse Practitioner Cardiology 06/08/23 Aurora Patel MD Consulting Physician Cardiology 06/23/23 Team Status: Active Member Role Status Dates Gay Enciso , NITROGLYCERIN SEPARATOR OPERATOR-C Primary Care Provider Active Start: July 19, 2024 Adolfo Kang MD Attending Provider, Other Provider Active Start: July 19, 2024 Team Status: Inactive Member Role Status Dates Gay Enciso , NITROGLYCERIN SEPARATOR OPERATOR-C Primary Care Provider Active Start: July 31, 2024 End: July 31, 2024 Adolfo Kang MD Attending Provider Active Sta rt: July 31, 2024 End: July 31, 2024 Basket Mender Relationship Specialty Start Date End Date Manuel Ferris MD PCP - General Family Medicine 02/27/22 Manuel Ferris MD Referring Family Medicine 02/12/22 Manuel Ferris MD [facility] [place] [address] Referring Family Medicine 07/06/24 Inactive Administered Medications - up to 3 [...] BE BASED ON THE PRIMARY CLINICAL RECORDS. [facility]. provides no warranty or guarantee of the accuracy or completeness of information in this document.
[2024-08-08 07:41] LABS: Basophils Absolute Auto 0.1 10^3/uL (0.0-0.1); Basophils Percent Auto 0.4 % (0.2-2.0); Eosinophils Absolute Auto 0.1 10^3/uL (0.0-0.7); Hematocrit 39.8 % (36.0-48.0); Hemoglobin 12.7 g/dL (12.0-16.0); Immature Granulocytes Abs Auto 0.14 10^3/uL (0.00-0.03); Immature Granulocytes Pct Auto 1.2 % (0.0-0.5); Lymphocytes Absolute Auto 3.1 10^3/uL (1.2-3.8); Lymphocytes Percent Auto 25.9 % (20.5-60.0); Mean Corpuscular HGB Conc 31.9 g/dL (29.9-35.2); Mean Corpuscular Hemoglobin 29.7 pg (26.7-34.0); Mean Corpuscular Volume 93.2 fL (81.0-99.0); Mean Platelet Volume 10.5 fL (9.5-13.5); Monocytes Absolute Auto 0.8 10^3/uL (0.3-0.8); Monocytes Percent Auto 6.4 % (1.7-12.0); Neutrophils Absolute Auto 7.8 10^3/uL (1.4-6.5); Neutrophils Percent Auto 65.1 % (43.0-75.0); Platelet Count 302 10^3/uL (150-450); Red Blood Count 4.27 10^6/uL (4.20-5.40); Red Cell Distribution Width 15.7 % (11.0-15.0)
[2024-08-08 09:31] LABS: Alanine Aminotransferase 39 U/L (14-59); Albumin Globulin Ratio 0.9; Albumin Level 3.2 g/dL (3.4-5.0); Alkaline Phosphatase 61 U/L (46-116); Anion Gap 12.5; Aspartate Amino Transferase 11 U/L (15-37); Bilirubin Total 0.2 mg/dL (0.2-1.0); Calcium 9.2 mg/dL (8.5-10.1); Carbon Dioxide 26.9 mmol/L (21.0-32.0); Chloride 105 mmol/L (98-107); Chol HDL Ratio 6.2; Cholesterol 286 mg/dL (<=200); Estimated GFR (African America >60 (>=60 mL/min/1.73m^2); Estimated GFR (Non-African Ame >60 (>=60 mL/min/1.73m^2); Free T3 2.89 pg/mL (2.18-3.98); Globulin 3.5 g/dL; Glucose 93 mg/dL (74-106); HDL Cholesterol 46 mg/dL (40-60); Potassium 3.4 mmol/L (3.5-5.1); Sodium 141 mmol/L (136-145); Thyroid Stimulating Hormone 0.623 uIU/mL (0.358-3.740); Total Protein 6.7 g/dL (6.4-8.2); Triglycerides 249 mg/dL (<=150); VLDL CHOLESTEROL 49.8 mg/dL
[2024-08-08 09:35] LABS: BUN Creatinine Ratio 31.3
[2024-08-08 10:32] LABS: Estimated Average Glucose 146 mg/dL; Glycohemoglobin A1C 6.7 % (4.5-6.2)
[2024-08-09 01:07] LABS: Insulin 24.1 uIU/mL (2.6-24.9)
[2024-08-09 03:07] LABS: Vitamin B12 585 pg/mL (232-1245)
== END 2024-08-08 06:39 | disposition home or self-care (01) ==
LOC: LAB 06:39
PROVIDERS: PCP Nurse Practitioner Family; Visit Provider Nurse Practitioner Family
DX: K21.9 Gastro-esophageal reflux disease without esophagitis (principal)
CPT/HCPCS: 36415; 80053; 80061; 82306; 82607; 83036; 83525; 83540; 84436; 84443; 84481; 85025

== ENCOUNTER 2024-08-24 08:04 | Outpatient (OUT) | payer OTHER, SELFPAY ==
--- NOTE | 2024-08-24 08:07 | US_ITS ---
The [address] [address] Patient Name: JONES HALEY MRN: [id number] date: 1980 Sex: F Assigned Patient Location: US Current Patient Location: US Accession/Order Number: [id number] Exam Date: 08/24/2024 09:09 Report Date: 08/24/2024 09:22 At the request of: GORDO BARFIELD MD Procedure: US thyroid THYROID ULTRASOUND COMPARISON: CT neck 09/07/2023 and ultrasound 08/11/2023 CLINICAL DATA: Follow-up thyroid nodule The right thyroid lobe measures 5.3 x 1.8 x 2.7 cm. The left lobe measures 4.1 x 1.4 x 1.9 cm. The isthmus measures 5 mm. Thyroid echotexture is mildly heterogeneous. At the inferior pole on the left, there is still a hypoechoic nodule with hyperechoic component measuring 11 x 8 x 6 mm. At the time of the prior this was thought to be cystic. The shuttle repairer today considered it solid and it was given TI-RADS 4 classification. No internal color flow is shown. Size has not significantly changed when measuring in a comparable manner. No other nodularity is seen. US/US thyroid IMPRESSION: SIMILAR SMALL LEFT THYROID NODULE. FOLLOW-UP IN ONE YEAR IS SUGGESTED. Impression dictated by: Simin Nelson M.D.08/24/2024 9:22 AM Dictation Location: [place] [address] Electronically authenticated by: [id number] Date: 08/24/2024 09:22
== END 2024-08-24 08:05 | disposition home or self-care (01) ==
LOC: US 08:04
PROVIDERS: PCP Nurse Practitioner Family; Visit Provider Otolaryngology
DX: E04.1 Nontoxic single thyroid nodule (principal)
CPT/HCPCS: 76536

== ENCOUNTER 2024-10-07 13:22 | Outpatient (REF) | payer OTHER, SELFPAY ==
--- OUTSIDE RECORDS SUMMARY | 2024-10-07 13:30 | XMS_ITS | CCD ---
Author Organization [facility]iniSyn[facility] Care Team Providers Care 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 Name Role Phone VICTOR MANUEL GUZMAN Referring Unavailable Unavailable Primary Care Provider UnavailOJNAS Stuart Referring Unavailable Britt ANIMATION DIRECTOR.TRUE, Gay Primary Care Provider [phone] Mirela Kelsey Unavailable Britt ANIMATION DIRECTOR.MRI TECHNICIAN, Gay Primary Care Provider [phone] Manuel Ferris MD Unavailable Manuel Ferris MD [...] HOY ., DR BURKETT Primary Care Unavailable TEMO ., OLY Attending Unavailable TEMO ., OLY Admitting Unavailable NEEL, DR AURORA Pacheco Consulting Unavailable HOY ., DR BURKETT Primary Care Unavailable TEMO ., OLY Consulting Unavailable HOY ., DR BURKETT Primary Care Unavailable TEMO ., OLY Consulting Unavailable TEMO ., OLY Attending Unavailable TEMO ., OLY Admitting Unavailable HOY ., DR BURKETT Primary Care Unavailable HOY ., DR BURKETT Consulting Unavailable HOY ., DR BURKETT Attending Unavailable HOY ., DR BURKETT Admitting Unavailable MARISSA, DR SAYDA Nelson Consulting Unavailable Charles Nicole DO Primary Care Provider Mitali THORPE-TRUE, Michelle L Unavailable Unavailable Primary Care Provider UnavailAurora Carney MD Unavailable Britt TABOR, Gay S Primary Care Provider Manuel Ferris MD Primary Care Provider [phone] MD Adolfo Kang Attending Provider CARISSA Enciso-Ananya Rahsid Natalie Primary Care Provider [phone] Charles Nicole MD Primary Care Provider CALOS MENDOZA Attending Unavailable Unavailable Primary Care Provider UnavailManuel Calixto MD Unavailable Britt QUALITY CLOTH TESTER-C, Gay Natalie Primary Care Provider [phone] Jorge Luis LEE, Adolfo S Attending Provider ALHAJI HEAD Attending Unavailable MANUEL FERRIS Primary Care Unavailable ALHAJI HEAD Attending Unavailable VAIBHAV CARVALHO Referring Unavailable MANUEL FERRIS Primary Care Unavailable Gay Enciso MD Unavailable Mitali THORPE-TRUE, Michelle London Unavailable Aurora Patel MD Unavailable Britt TABOR, Gay S Primary Care Provider LIOS HOLM Attending Unavailable BRITT, GAY S Primary Care Unavailable LOIS HOLM Attending Unavailable LOIS HOLM Referring Unavailable BRITT, GAY S Primary Care Unavailable Britt QUALITY CLOTH TESTER-C, Gay Natalie Primary Care Provider Adolfo Kang MD Attending Provider [phone] Adolfo Kang Attending Unavailable Adolfo Kang Admitting Unavailable Britt, Gay Natalie Primary Care Unavailable Britt, Gay Natalie Primary Care Unavailable Adolfo Kang Attending Unavailable Adolfo Kang Admitting Unavailable KADE RICHARDSON Attending Unavailable ZITA ROGERS Attending Unavailab LUAN Yates Attending Unavailable DIGNA PRICE Attending Unavailable ZITA ROGERS Attending Unavailab ZITA Braden Referring Unavailab ZITA Braden Attending Unavailab LUAN Yates Attending Unavailable OLY PLASCENCIA Attending Unavailable MARKY MIKE Attending Unavailable GORDO BARFIELD Attending Unavailable BRITT, GAY Referring Unavailable OLY PLASCENCIA Attending Unavailable BERNABE ENGLISH Attending Unavailable GORDO BARFIELD Attending Unavailable HOY, MANUEL M Primary Care Unavailable HOY, MANUEL M Primary Care Unavailable HOY, MANUEL M Primary Care Unavailable CAROLINEAR, VERA Referring Unavailable HOY, MANUEL M Primary Care Unavailable MARKY BARNES Attending Unavailable HOY, MANUEL M Primary Care Unavailable [place] Referring Unavailable LYNNE NI Referring Unavailable HOY, MANUEL M Primary Care Unavailable [place] Attending Unavailable HOY, MANUEL M Primary Care [...] Unavailable HOY, MANUEL M Primary Care Unavailable LASTCARLITOST Attending Unavailable HOY, MANUEL M Primary Care [...] sources) Trimethoprim Drug Allergy Other: See Comments [facility] Doxycycline (3 sources) Doxycycline Drug Allergy Other: See Comments [facility] Latex (3 sources) Latex Substance Allergy Rash [facility] Lincosamides (antibiotic) (3 sources) Clindamycin Drug Allergy Unknown [facility] Opioid Agonists (3 sources) Codeine Drug Allergy Other: See Comments [facility] Sulfamethoxazole / Trimethoprim (4 sources) Sulfamethoxazole / Trimethoprim Drug Allergy Swelling [facility] Sulfonamides (antibiotic) (3 sources) Sulfamethoxazole Drug Allergy Other: See Comments [facility] Work Phone: (20 sources) Codeine; Translations: [CODEINE] Drug Allergy Other: See Comments [facility] (20 sources) Latex; Translations: [LATEX] Drug Allergy Rash [facility] (20 sources) Sulfamethoxazole; Translations: [SULFAMETHOXAZOLE] Drug Allergy GI Upset, Other: See Comments [facility] (20 sources) Clindamycin; Translations: [CLINDAMYCIN] Drug Allergy Unknown [facility] (4 sources) Sulfamethoxazole / Trimethoprim Drug Allergy lymph swelling [email or web address] Other (20 sources) Doxycycline; Translations: [DOXYCYCLINE] Drug Allergy Other: See Comments, Other, Unknown, Other (See Comments) [facility] (20 sources) Sulfamethoxazole / Trimethoprim; Translations: [SULFAMETHOXAZOLE-T RIMETHOPRIM] Drug Allergy Swelling, Other, GI Disturbance, Other (See Comments) [facility] (20 sources) Trimethoprim; Translations: [TRIMETHOPRIM] Drug Allergy Other: See Comments [facility] (1 source) Latex Drug allergy (disorder) [facility] Repository (1 source) Sulfamethoxazole / Trimethoprim Drug Allergy [facility] Repository (20 sources) Sulfamethoxazole Allergy to substance [facility] (20 sources) Latex Propensity to adverse reactions Rash [facility] (1 source) Omeprazole; Translations: [OMEPRAZOLE] Drug Allergy [facility] Repository (1 source) pantoprazole; Translations: [PANTOPRAZOLE] Drug Allergy [facility] Repository (1 source) Clindamycin Drug Allergy [facility] Repository (1 source) Sulfamethoxazole Drug Allergy [facility] Repository (1 source) Trimethoprim Drug Allergy [facility] Repository Medications Current Medications Medication Drug [...] other organ involvement (HCC) , Encounter for detention 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 TAKE 3 TABLETS [...] other organ involvement (HCC) , Encounter for detention 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 TAKE 3 TABLETS BY MOUTH DAILY WITH FOOD. HOLD IF ON ANTIBIOTICS OR ILL. 90 tablet 3 02/16/2023 Active Start: 08-19-2022 End: 11-24-2022 take 2 tablets by mouth once daily at mealtime azaTHIOprine (IMURAN) 50 mg tablet Indications: Other systemic lupus erythematosus with other organ involvement (HCC) , Encounter for detention 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 Take 2tab daily [...] B Lymphocyte Stimulator-specific Inhibitor Start: 023 End: 025 inject 200 mg by subcutaneous injection every week belimumab (BENLYSTA) 200 mg/mL auto-injector Indications: Other systemic lupus erythematosus with other organ involvement (HCC) Inject 200mg (1 pen) subcutaneously once weekly 12 mL 3 09/18/2024 Active Comment on above: Inject 200mg (1 pen) subcutaneously once weekly cephalexin 500 mg oral capsule (6 sources) Cephalosporin Antibacterial Start: 025 End: 025 take 1 capsule by mouth in the [...] APPLY TO AFFECTED AREA DAILY 75 mL 10/06/2023 06/06/2024 Discontinued clobetasol propionate 0.5 mg/ml medicated shampoo (20 sources) Corticosteroid Start: 10-20-2023 Clobetasol 0.0 5 % shampoo Active 1 APPLIC TOPICAL As Directed October 20, 2023 12:00am Start: 10-20-2023 Clobetasol Act kaycee TOPICAL October 20, 2023 12:00am Start: 10-23-2022 End: 07-25-2024 Clobetasol Propionate 0.05 % shampoo Indications: Other seborrheic dermatitis 1 application to the scalp in the shower topically 3-4 times a week 236 mL 11 07/25/2024 Active clonazePAM 0.5 mg oral tablet (4 sources) Benzodiazepine Start: 09-01-2024 take 1 tablet by mouth once daily as needed KlonoPIN 0.5 MG tablet 1 tablet Orally Once a day prn for 30 days 09/01/2024 Active Start: 07-31-2024 take 1 tablet by ce th once daily Clonazepam (Klonopin) 0.5 mg tablet [...] Start: 02-01-2024 diclofenac sodium 1 % gel 02/01/2024 Active Start: 02-01-2024 diclofenac sod ium (VOLTAREN ARTHRITIS PAIN) 1 % gel Apply 2 g topically 4 (four) times a day as needed. 02/01/2024 Active jmcusbsrjbTSCDM-hinsye-bzbjj belia (BMX 1:1:1) 1:1:1 liqd (20 sources) Start: 07-12-2024 take 5 mL by mouth every six hours as needed nqqkxjjcfiSGIVK-ukqdrz-bzeinqwhi (BMX 1:1:1) 1:1:1 liqd Take 5 mL by mouth every 6 hours as needed. 500 mL 1 07/12/2024 Active 0.5 ml dulaglutide 3 mg/ml auto-injector (20 sources) G L P - 1 R e c e p t o r A g o n i s t Start: 08-17-2024 Trulicity 1.5 MG/0.5ML solut ion auto-injector INJECT SUBCUTANEOUSLY ONCE A WEEK DIRECTED 08/17/2024 Active Start: 07-29-2024 inject 0.75 mg by galarza bcutaneous injection once TRULICITY 0.75 mg/0.5 mL pen injector Inject 0.75 mg subcutaneously one time a week. Per PCP 07/29/2024 Active Start: 11-16-2022 End: 12-16-2022 inject 1.5 mg [...] mg subcut aneously one time a week. ergocalciferol 1.25 mg oral capsule (20 sources) Provitamin D2 Compound Start: 04-02-2024 End: 07-09-2024 ergocalciferol 50,000 unit capsule (VITAMIN D2, DRISDOL) Indications: Vitamin D deficiency Take 1cap by mouth twice a week x 10weeks, then once a week with food. 24 capsule 1 04/02/2024 07/09/2024 Discontinued Start: 10-20-2023 End: 10-06-2024 ergocalciferol 50,000 unit c apsule (VITAMIN D2, DRISDOL) Indications: Vitamin D deficiency Take 1cap by mouth 3times a week x 10weeks, then once a week with food. 34 capsule 1 10/06/2024 Active Start: 10-31-2022 End: 04-02-2024 take 1 [...] 0 03/06/2021 Active take 1 capsule by [facility] every week ergocalciferol (Vitamin D2) 1.25 MG (64632 UT) capsule Take 50,000 Units by mouth [...] Ethinyl Estradiol / Ferrous fumarate / Norethindrone (20 sources) Estrogen Start: 03-23-20 24 End: 02-23-20 25 take 1 tablet by mouth once daily norethindrone-ethin yl estradiol-iron (Lo Loestrin Fe) 1 MG-10 MCG / 10 MCG tablet Indications: Menorrhagia with regular cycle Take 1 tablet by mouth Daily Take 1 tablet by mouth daily 28 tablet 11 03/23/2024 02/22/2025 Active fidaxomicin 200 mg oral tablet (20 sources) Macrolide Antibacterial Start: 06-15-19 25 End: 06-25-19 25 take 1 tablet by mouth once in [...] End: 11-26-2023 take 1 tablet by mouth in the morning folic acid (Folvite) 1 MG tablet Take 1 mg by mouth in the morning. 01/15/2023 Active Comment on above: Take 1 [...] hydrOXYchloroQUINE (PLAQUENI L) 200 mg tablet Indications: CHRISTAIN positive , Other systemic lupus erythematosus with [...] time each day at the same time Active take 1 tablet by ce th [...] ibuprofen 200 MG tablet every 8 (eight) hours Active take 1 tablet by ce th every six hours as needed for pain ibuprofen (ADVIL;MOTRIN) 200 MG tablet T jaqui 200 mg by mouth every 6 hours as needed for Pain 0 Active Comment on above: Take 600 mg by mouth . 10 ml immunoglobulin g, chayito n 100 mg/ml injection (3 sources) Human Immunoglobulin G immune gl obulin, human, (Gammagard) infusion Infuse into a venous catheter Active immune globulin, human, (Gammagard) infusion Infuse into a venous catheter 1 time. Active magnesium citrate 58.2 mg/ml oral solution (2 sources) Start: 06-27-2023 [facility] Magnesium Citrate oral solution TAKE HALF OF THE BOTTLE WITH 8 OZ OF WATER, TAKE THE OTHER HALF AFTER 1 HOUR WITH 8 OZ OF WATER 0 06/27/2023 Active metoprolol tartrate 50 mg oral tablet (20 sources) beta-Adrenergi c Judie Start: 07-26-2024 End: 07-26-2025 take 1 tablet by mouth four times daily metoprolol tartrate (Lopressor) 50 mg tablet Indications: Paroxysmal supraventricular tachycardia (CMS-HCC) , Essential hypertension Take 1 tablet by mouth 4 times a day. 360 tablet 3 07/26/2024 07/26/2025 Active Start: 10-20-2023 take 4 tablets by mo meh once daily Metoprolol Tartrate 50 mg tablet [...] sources) Leukotriene Receptor Antagonist Start: 4 End: take 1 tablet by mouth once [...] take 1 capsule by mo [facility] once daily naltrexone capsule 1 mg TAKE ONE CAPSULE BY MOUTH DAILY 0 01/19/2022 Active Comment on above: TAKE ONE CAPSULE BY MOUTH DAILY nitroglycerin 0.4 mg sublingual tablet (20 sources) Nitrate Vasodilator Start: End: nitroglycerin sublingual (NITROQUICK) 0.4 mg SL tablet Dissolve 0.4 mg under the tongue. 0 10/07/2020 07/25/2022 Discontinued Comment on above: Dissolve 0.4 mg unde r the tongue. nystatin [id number] unt/ml oral suspension (20 sources) Polyene Antifungal Start: take 1 mL by mouth once daily Nystatin 100,000 unit/mL suspension Active 1 ML PO Daily July 31, 2024 12:00am swish and swallow Start: 07-25-2024 End: 08-08-2024 nystatin (Mycostatin) [id number] UNIT/ML suspension Indications: Rash and other nonspecific [...] days. pilocarpine hydrochloride 5 mg oral tablet (12 sources) Cholinergic Receptor Agonist Start: 07-12-2024 End: 09-06-2024 take 1 tablet by mouth three times daily pilocarpine (SALAGEN) 5 mg tablet TAKE 1 TABLET BY MOUTH THREE TIMES A DAY 135 tablet 1 08/07/2024 09/06/2024 Active predniSONE 10 mg oral tablet (20 sources) Start: 10-07-2024 predniSONE (DELTASONE) 10 mg tablet Indications: Other systemic lupus erythematosus with other organ involvement (HCC) Take 40mg daily x 3, decrease by 5mg every 3days until taking 10mg daily with food thereafter (no oral nsaids) 120 tablet 1 10/07/2024 Active Start: 06-22-2024 End: 10-07-2024 predniSONE (DELTASONE) 10 mg tablet Indications: Other systemic lupus erythematosus with other organ involvement (HCC) Take 40mg daily x 3, decrease by 5mg every 3days until taking 10mg daily with food thereafter (no oral nsaids) 120 tablet 1 06/22/2024 10/07/2024 Discontinued Start: 03-17-2024 End: 10-07-2024 take 1 tablet by mouth once daily at mealtime predniSONE (DELTASONE) 10 mg tablet Indications: Other systemic lupus erythematosus with other organ involvement (HCC) TAKE 1 TABLET BY MOUTH EVERY DAY WITH FOOD NO ORAL NSAIDS 30 tablet 5 09/01/2024 10/07/2024 Discontinued (Course of therapy completed) Start: 01-12-2024 End: 03-17-2024 predniSONE (DELTASONE) 10 [...] g 11 07/25/2024 Active Start: 08-16-2023 tacrolimus ([place] OTOPIC) 0.1 % ointment Apply 1 Application [...] 06-23-2022 Triamcinolone Acetonide 0.025 % lotion 1 application 06/23/2022 Active triamcinolone ac etonide (KENALOG) 0.025 % lotion Apply 1 Application topically as needed. Active Vitamin D 50 MCG (1999) (4 sources) take 1 tablet by ce th every week Vitamin D 50 MCG (1999) 1 tablet Orally weekly Active Completed/Discontinued Medications Medication Drug Class(es) Dates Sig (Normalized) Sig (Original) acetaminophen 500 mg oral tablet (20 sources) Start: 2024 End: 2024 take 1 dose by mouth once 1,000 mg, ORAL, ONCE, 1 dose, On Wed10/04/24 at 1430 Start: 10-02-2024 End: 10-02-2024 take 1 dose by mouth once, then take 4000 mg by mouth once daily 650 mg, ORAL, ONCE, 1 dose, On Wed10/02/24 at 0900, No more than 4000 mg of acetaminophen should be given per day (FROM ALL SOURCES) Start: 09-18-2024 End: 09-18-2024 take 1 dose by mouth once 1,000 mg, ORAL, ONCE, 1 dose , On Wed09/18/24 at 1300 Start: 09-06-2024 End: 09-06-2024 take 1 dose by mouth once, then take 4000 mg by mouth once daily 650 mg, ORAL, ONCE, 1 dose, On Wed09/06/24 at 0930, No more than 4000 mg of acetaminophen should be given per day (FROM ALL SOURCES) Start: 08-08-2024 End: 08-08-2024 take 1 dose by mouth once, then take 4000 mg by mouth once daily 650 mg, ORAL, ONCE, 1 dose, On Wed08/08/24 at 0930, No more than 4000 mg of acetaminophen should be given per day (FROM ALL SOURCES) Start: 07-11-2024 End: 07-11-2024 take 1 dose [...] ylenol) 325 MG tablet every 4 (four) hours Active take 1 tablet by ce th [...] tablet (20 sources) Benzodiazepine Start: 06-24-19 End: 09-05-19 ALPRAZolam (Xanax) 0.25 MG tablet 06/24/2023 09/04/2024 Discontinued (Therapy completed) amLODIPine 5 mg oral tablet (8 sources) Dihydropyridine Calcium Channel Judie Start: 02-03-20 End: 03-16-20 take 1 tablet by mouth once daily amLODIPine (Norvasc) 5 MG tablet Take 5 mg by mouth Daily 02/03/2024 03/16/2024 Discontinued Start: 10-07-2020 take 1 tablet by ce th once daily amLODIPine (NORVASC) 2.5 MG tablet Take 1 tablet by mouth daily 30 tablet 3 10/07/2020 Active belimumab 1,275 mg in NaCl 0.9% 250 mL (BENLYSTA) (1 source) Start: 2024 End: 2024 1,275 mg (10 mg/kg/dose 127.5 kg), INTRAVENOUS, at 250 mL/hr, Administer over 60 Minutes, ONCE, 1 dose, On Wed10/04/24 at 1430, EXP: 10/04/20242034 RT Protect From Light belimumab 1,318 mg in NaCl 0.9% 250 mL (BENLYSTA) (1 source) Start: 09-18-2024 End: 09-18-2024 1,318 mg (10 mg/kg/dose 131.8 kg), INTRAVENOUS, at 125 mL/hr, Administer over 120 Minutes, ONCE, 1 dose, On Wed09/18/24 at 1400, Total Volume - EXP: 09/18/2024 1935 RT Protect From Light biotin 10 mg oral tablet (20 sources) [...] Discontinued dicyclomine hydrochloride 10 mg oral capsule (18 sources) Anticholinergic Start: End: take 1 capsule [...] daily as needed for abdominal pain 60 30 September 22, 2023 12:00am October 20, 2023 1:07pm Take 1 capsule orally twice a day prn diphenhydrAMINE hydrochloride 25 mg oral capsule (8 sources) Histamine-1 Receptor Antagonist Start: 2024 End: 2024 take 1 dose by mouth once 25 mg, ORAL, ONCE, 1 dose, On Wed10/04/24 at 1430 Start: 10-02-2024 End: 10-02-2024 25 mg, INTRAVENOUS, ONCE, 1 dose, On Wed10/02/24 at 0900 Start: 09-18-2024 End: 09-18-2024 take 1 dose by mouth once 25 mg, ORAL, ONCE, 1 dose, O n Wed09/18/24 at 1300 Start: 09-06-2024 End: 09-06-2024 25 mg, INTRAVENOUS, ONCE, 1 dose, On Wed09/06/24 at 0930 Start: 08-08-2024 End: 08-08-2024 25 mg, INTRAVENOUS, ONCE, 1 dose, On Wed08/08/24 at 0930 Start: 07-11-2024 End: 07-11-2024 25 mg, INTRAVENOUS, ONCE, 1 dose, On Wed07/11/24 at 0900 Start: 06-13-2024 End: 06-13-2024 25 mg, INTRAVENOUS, ONCE, 1 dose, On Wed06/13/24 at 1000 Start: 05-19-2024 End: 05-19-2024 25 mg, INTRAVENOUS, ONCE, 1 dose, On Wed05/19/24 at 1000 DULoxetine 20 mg delayed release oral capsule (20 sources) Serotonin and Norepinephrine Reuptake Inhibitor Start: 02-01-2024 End: 03-16-2024 take 1 capsule by mouth once daily [...] Comment on above: Take 1 capsule by [facility] once daily. famotidine 20 mg oral tablet (18 sources) Histamine-2 Receptor Antagonist Start: End: take 1 tablet by mouth at bedtime famotidine (Pepcid) 20 MG tablet Indications: LPRD (laryngopharyngeal reflux disease) Take 1 tablet (20 mg) by mouth at bedtime 90 tablet 04/10/2024 09/04/2024 Discontinued (Therapy completed) Start: 07-21-2020 End: 10-24-2021 take 1 tablet by mouth once daily at bedtime famotidine (PEPCID) 20 mg tablet Take 20 mg by mouth daily at bedtime. 0 07/21/2020 10/24/2021 Discontinued take 1 tablet by [facility] twice daily as needed famotidine (PEPCID) 20 mg tablet Take 1 tablet (20 mg total) by mouth 2 (two) times a day as needed. Active Comment on above: Take 20 mg by mouth daily at bedtime. gentamicin 0.001 mg/mg topical ointment (9 sources) Start: 11-22-2023 End: 12-16-2023 Gentamicin 0.1 % ointment Discontinued 1 APPLIC TOPICAL Three times daily 15 10 November 22, 2023 12:00am December 16, 2023 2:12pm hydrocortisone 100 mg injection (6 sources) Corticosteroid Start: 10-02-2024 End: 10-02-2024 50 mg, INTRAVENOUS, ONCE, 1 dose, On Wed10/02/24 at 0900 Start: 09-06-2024 End: 09-06-2024 50 mg, INTRAVENOUS, ONCE, 1 dose, On Wed09/06/24 at 0930 Start: 08-08-2024 End: 08-08-2024 50 mg, INTRAVENOUS, ONCE, 1 dose, On Wed08/08/24 at 0930 Start: 07-11-2024 End: 07-11-2024 50 mg, INTRAVENOUS, ONCE, 1 dose, On Wed07/11/24 at 0900 Start: 06-13-2024 End: 06-13-2024 50 mg, INTRAVENOUS, ONCE, 1 dose, On Wed06/13/24 at 1000 Start: 05-19-2024 End: 05-19-2024 50 mg, INTRAVENOUS, ONCE, 1 dose, On Wed05/19/24 at 1000 immune globulin (human) (IgG) 35 g in empty bag Total Volume 350 mL (GAMMAGARD) (6 sources) Start: 10-02-2024 End: 10-02-2024 35 g (rounded from 34.72 g = 0.4 g/kg/dose 86.8 kg Treatment plan adjusted weight), INTRAVENOUS, ONCE, 1 dose, On Wed10/02/24 at 0930, EXP: 2024 0910 RT Refrigerate - Prepared as a 10% solution - Brand: Lot: Total Volume., Infusion regimen: Standard, Starting rate (mL/kg/hr): 0.5 mL/kg/hr, Rate after 30 min (mL/kg/hr): 1 mL/kg/hr, Titration rate/max: Increase by 1 mL/kg/hr every 30 minutes thereafter to a max of 5 mL/kg/hr unless signs or symptoms of reaction Start: 09-06-2024 End: 09-06-2024 35 g (rounded from 34.72 g = 0.4 g/kg/dose 86.8 kg Treatment plan adjusted weight), INTRAVENOUS, ONCE, 1 dose, On Wed09/06/24 at 1000, EXP: 09/08/2024 0930 RT Refrigerate - Prepared as a 10% solution - Brand: Lot: Total Volume., Infusion regimen: Standard, Starting rate (mL/kg/hr): 0.5 mL/kg/hr, Rate after 30 min (mL/kg/hr): 1 mL/kg/hr, Titration rate/max: Increase by 1 mL/kg/hr every 30 minutes thereafter to a max of 5 mL/kg/hr unless signs or symptoms of reaction Start: 08-08-2024 End: 08-08-2024 35 g (rounded from 34.72 g = 0.4 g/kg/dose 86.8 kg Treatment plan adjusted weight), INTRAVENOUS, ONCE, 1 dose, On Wed08/08/24 at 1000, EXP: 08/10/2024 0920 RT Refrigerate - Prepared as a 10% solution - Brand: Lot: Total Volume., Infusion regimen: Standard, Starting rate (mL/kg/hr): 0.5 mL/kg/hr, Rate after 30 min (mL/kg/hr): 1 mL/kg/hr, Titration rate/max: Increase by 1 mL/kg/hr every 30 minutes thereafter to a max of 5 mL/kg/hr unless signs or symptoms of reaction Start: 07-11-2024 End: 07-11-2024 35 g (rounded [...] omeprazole 40 mg delayed release oral capsule (20 sources) Proton Pump Inhibitor Start: 03-16-2024 End: 09-04-2024 take 1 capsule by mouth before mealtime omeprazole (PriLOSEC) [address] capsule Indications: LPRD (laryngopharyngeal reflux disease) Take 1 capsule (40 mg) by mouth in the morning. Take before meals. Do not crush or chew.. 90 capsule 04/10/2024 09/04/2024 Discontinued (Therapy completed) Start: 08-09-2020 End: 02-25-2022 take 1 capsule by mouth twice daily omeprazole (PRILOSEC) 40 mg capsule Indications: Gastroesophageal reflux disease, unspecified whether esophagitis present Take 1 capsule by mouth twice daily. 30 capsule 2 08/09/2020 02/25/2022 Discontinued (Course of therapy completed) take 2 capsules by m outh once daily omeprazole (PRILOSEC) 20 MG delayed release capsule Take 40 mg by mouth daily 0 Active Comment on above: Take 1 capsule by mo uth twice daily. pravastatin sodium 20 mg oral tablet (20 sources) HMG-CoA Reductase Inhibitor Start: End: take [...] Start: 10-20-2023 take 3 capsules by m outh once daily as needed for pain Pregabalin [...] Comment on above: Take 1 tablet by [facility] once daily. rivaroxaban 15 mg oral [...] sources) Allylamine Antifungal Start: 04-02-20 End: 04-07-20 24 take 1 tablet by mouth once daily terbinafine (LamISIL) 250 MG tablet Indications: Oral thrush Take 1 tablet (250 mg) by mouth Daily for 5 days 5 tablet 04/02/2024 04/03/2024 Discontinued vitamin b12 1 mg/ml injectable solution (15 sources) Vitamin B12 Start: 10-03-19 End: 10-03-19 inject 1 dose by intramuscular injection once 1,000 mcg, INTRAMUSCULAR, ONCE, 1 dose, On Wed10/02/24 at 0900 Start: 09-06-2024 End: 09-06-2024 inject 1 dose by intramuscular injection once 1,000 mcg, INTRAMUSCULAR, ONCE, 1 dose, On Wed09/06/24 at 1000 Start: 08-08-2024 End: 08-08-2024 inject 1 dose by intramuscular injection once 1,000 mcg, INTRAMUSCULAR, ONCE, 1 dose, On Wed08/08/24 at 0930 Start: 07-11-2024 End: 07-11-2024 inject 1 dose by intramuscular injection once 1,000 mcg, INTRAMUSCULAR, ONCE, 1 dose, On Wed07/11/24 at 0900 Start: 06-13-2024 End: 06-13-2024 inject 1 dose by intramuscular injection once 1,000 mcg, INTRAMUSCULAR, ONCE, 1 dose, On Wed06/13/24 at 1000 Start: 04-26-2024 End: 04-26-2024 inject 1 dose by intramuscular injection once 1,000 mcg, INTRAMUSCULAR, ONCE, 1 dose, On 04/26/24 at 0930 Start: 03-23-2024 End: 03-23-2024 inject [...] Onset: 4 Chronic Deficiency and other anemia (7 sources) Anemia of chronic disease; Translations: [Anemia in other chronic diseases classified elsewhere] Chronic Deficiency and other anemia (1 source) Anemia in other chronic diseases classified elsewhere; Translations: [Anemia of chronic disease] Onset: 5 Chronic Disorders of lipid metabolism (20 sources) [...] 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] Onset: 4 04-01-2024 Chronic Immunizations and screening for infectious disease (20 sources) Anti-nuclear factor positive; Translations: [Other specified abnormal immunological findings in serum] Onset: 1 Episodic Malaise and fatigue (20 sources) Malaise [...] of skin] 07-25-2024 Episodic Nonmalignant breast conditions (10 sources) Mammary duct ectasia; 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] Onset: 4 12-16-2023 Chronic Nutritional deficiencies (20 sources) Vitamin D deficiency; Translations: [Vitamin D deficiency, unspecified] Onset: 1 Chronic Nutritional deficiencies (20 sources) Cobalamin deficiency; Translations: [Deficiency of other specified B group vitamins] Onset: 5 Episodic Osteoarthritis (20 sources) Degenerative joint disease involving multiple joints; 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] Onset: 1 Chronic Osteoporosis (20 sources) 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; Translations: [Other osteoporosis without current pathological fracture] Onset: 3 02-04-2023 Chronic Other aftercare (20 sources) H/O: high risk medication; Translations: [Other detention (current) drug therapy] Onset: 3 06-15-2022 Episodic Other aftercare (3 sources) Drug therapy status; Translations: [Encounter for manager 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] Episodic Other aftercare (1 source) Polypharmacy ; Translations: [Other detention (current) drug therapy] Episodic Other aftercare (20 sources) Long-term current use of systemic steroid; Translations: [prison (current) use of 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] Onset: 3 02-04-2023 Episodic Other aftercare (1 source) Long-term current use of drug therapy; Translations: [Encounter for detention 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] 11-11-2023 Episodic Other [...] toe; Translations: [Pain in right toe(s)] Onset: 1 Episodic Other connective tissue disease (20 sources) Fibromyalgia; Translations: [Fibromyalgia] Onset: 2 Episodic Other connective tissue disease (20 sources) Paraparesis; Translations: [Other symptoms and signs involving the musculoskeletal system] Onset: 1 03-05-2021 Episodic Other connective tissue disease (3 sources) Pain of bilateral hands; Translations: [Pain in right hand] 10-05-2023 Episodic Other ear and sense organ disorders (2 sources) Pain of ear structure; Translations: [Otalgia, right ear] 04-10-2024 Episodic Other female genital disorders (2 sources) Abnormal uterine bleeding; Translations: [Abnormal uterine and vaginal bleeding, unspecified] 03-23-2024 Chronic Other gastrointestinal disorders (3 sources) Diarrhea, unspecified; [...] 2 Chronic Other inflammatory condition of skin (4 sources) Lupus erythematosus; 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] [...] 4 06-18-2014 Chronic Other nervous system disorders (10 sources) Chronic pain; Translations: [Other chronic pain] 04-26-2023 Chronic Other nervous system disorders (20 sources) Disorder of autonomic nervous system; Translations: [Disorder of the autonomic nervous system, unspecified] Onset: 4 06-09-2023 Chronic Other nervous system disorders (13 sources) Other chronic pain; Translations: [Other chronic pain] Onset: 4 01-28-2024 Chronic Other nervous system disorders (1 source) Numbness; Translations: [Anesthesia of skin] 02-07-2024 Episodic Other nervous system disorders (4 sources) Cold extremity; Translations: [Unspecified disturbances of skin sensation] 04-06-2024 Episodic Other non-traumatic joint disorders (1 source) Other specific joint derangements of unspecified joint, not elsewhere classified; 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] Onset: 5 Chronic Other non-traumatic joint disorders (20 sources) Hip pain; Translations: [Pain in unspecified hip] Onset: 4 06-18-2014 Episodic Other non-traumatic joint disorders (20 sources) Bilateral wrist pain; Translations: [Pain in right wrist] Onset: 3 02-04-2023 Episodic Other nutritional; endocrine; and metabolic disorders (20 sources) Obesity; Translations: [Obesity, unspecified] 02-25-2015 Chronic Other nutritional; endocrine; and metabolic disorders (20 sources) Body mass index 40+ - severely obese; Translations: [Morbid (severe) obesity due to excess calories] Onset: 3 Chronic Other nutritional; endocrine; and metabolic disorders (14 sources) Insulin resistance; Translations: [Insulin resistance, unspecified] Onset: 4 03-10-2023 Chronic Other nutritional; endocrine; and metabolic [...] (pediatric)] Onset: 4 Chronic Residual codes; unclassified (20 sources) FH: Crohn's disease; Translations: [Family history of other diseases of the digestive system] Onset: 1 Episodic Residual codes; unclassified (1 source) Family [...] involving general sensations and perceptions] 07-12-2024 Episodic Residual codes; unclassified (1 source) FH: Cardiovascular disease; Translations: [Family history of ischemic heart disease and other diseases of the circulatory system] 09-26-2024 Episodic Residual codes; unclassified (1 source) Family history of cancer; Translations: [Family history of malignant neoplasm, unspecified] 09-26-2024 Episodic Residual codes; unclassified (1 source) Family history of ischemic heart disease and other diseases of the circulatory system; Translations: [Family history of aortic aneurysm] Onset: 5 Episodic Rheumatoid arthritis and related disease (3 sources) Rheumatoid arthritis; Translations: [Rheumatoid arthritis, unspecified] Onset: 2 04-06-2024 Chronic Spondylosis; intervertebral disc disorders; other back problems (20 sources) Bilateral inflammation of sacroiliac joint; Translations: [Sacroiliitis, not elsewhere classified] Onset: 6 09-13-2015 Chronic Spondylosis; intervertebral disc disorders; other back problems (20 sources) Chronic low back pain; Translations: [Lumbago with sciatica, left side] Onset: 5 Episodic Substance-related disorders (20 sources) Tobacco user; [...] Other Problems Problem Classification Problem Date Documented Da te Episodic/Chronic Cardiac dysrhythmias (20 sources) Tachycardia, unspecified; Translations: [Tachycardia] Onset: 2 Resolved: 5 Episodic Coma; stupor; and brain damage (20 sources) Daytime somnolence; Translations: [Somnolence] Onset: 2 Episodic Conditions associated with dizziness or vertigo (20 sources) Dizziness; Translations: [Dizziness and giddiness] Onset: 4 06-01-2023 Episodic Deficiency and other anemia (20 sources) Megaloblastic anemia due to vitamin B>12< deficiency; Translations: [Other megaloblastic anemias, not elsewhere classified] Onset: 2 03-04-2022 Episodic Deficiency and other anemia (1 source) Anemia, unspecified; Translations: [ANEMIA UNSPECIFIED] Onset: 2 Episodic Deficiency and other anemia (20 sources) Anemia; Translations: [Anemia, unspecified] Onset: 2 03-10-2023 Episodic Deficiency and other anemia (20 sources) Iron deficiency anemia; Translations: [Other iron deficiency anemias] Onset: 5 06-16-2024 Episodic Deficiency and other anemia (1 source) Other megaloblastic anemias, not elsewhere classified; Translations: [Megaloblastic anemia due to vitamin B12 deficiency] Onset: 2 Episodic Diabetes mellitus without complication (20 sources) Increased glucose level; Translations: [Other abnormal glucose] Onset: 2 Episodic Diseases of mouth; excluding dental (20 sources) Oral lesion; Translations: [Unspecified lesions of oral mucosa] Onset: 4 07-06-2023 Episodic E Codes: Fall (1 source) Fall on same level from slipping, tripping and stumbling without subsequent striking against object, initial encounter; Translations: [FALL SAME LVL SLIP NO STRK OBJ INIT] Onset: 2 Episodic Headache; including migraine (20 sources) Headache; Translations: [Nonintractable episodic headache] Onset: 4 06-01-2023 Episodic Intestinal infection (20 sources) Clostridium difficile diarrhea; Translations: [Enterocolitis due to Clostridium difficile, not specified as recurrent] Onset: 4 09-22-2023 Episodic Joint disorders and dislocations; trauma-related (1 source) Unspecified subluxation of right patella, initial encounter; Translations: [UNS SUBLUXATION RT PATELLA INITIAL] Onset: 2 Episodic Lymphadenitis (20 sources) Lymphadenopathy; Translations: [Enlarged lymph nodes, unspecified] Onset: 1 03-05-2021 Episodic Nonmalignant breast conditions (20 sources) Discharge from nipple; Translations: [Nipple discharge] Onset: 4 12-16-2023 Episodic Other aftercare (20 sources) Drug therapy finding; Translations: [Other manager 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 (current) drug therapy] Onset: 1 Episodic Other aftercare (1 source) Other manager 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 (current) drug therapy; Translations: [OTH HORSE TRADER 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 THERAPY] Onset: 2 Episodic Other connective tissue disease (20 sources) Other symptoms and signs involving the musculoskeletal system; Translations: [Other musculoskeletal symptoms referable to limbs] Onset: 1 03-05-2021 Episodic Other connective tissue disease (20 sources) Enthesopathy of hip region; Translations: [Other specified enthesopathies of unspecified lower limb, excluding foot] Onset: 4 07-06-2023 Episodic Other connective tissue disease (20 sources) Muscle pain; Translations: [Myalgia, unspecified site] Onset: 4 07-06-2023 Episodic Other connective tissue disease (2 sources) Pain in lower limb; Translations: [Pain in leg, unspecified] 04-06-2024 Episodic Other gastrointestinal disorders (14 sources) Diarrhea; Translations: [Diarrhea, unspecified] Onset: 4 09-22-2023 Episodic Other hematologic conditions (9 sources) Elevated erythrocyte sedimentation rate; Translations: [ELEVATED ERYTHROCYTE SED RATE] Onset: 1 Resolved: 2 Episodic Other infections; including parasitic (20 sources) Disorder due to infection; Translations: [Personal history of other infectious and parasitic diseases] Onset: 4 04-01-2024 Episodic Other infections; including parasitic (1 source) Personal history of other infectious and parasitic diseases; Translations: [Frequent infections] Onset: 4 Episodic Other injuries and conditions due to external causes (3 sources) Unspecified injury of right lower leg, initial encounter; Translations: [UNS INJURY RT LOWER LEG INITIAL ENC] Onset: 2 Episodic Other lower respiratory disease (20 sources) Dyspnea; Translations: [Shortness of breath] Onset: 4 07-13-2023 Episodic Other lower respiratory disease (1 source) Shortness of breath; Translations: [Shortness of breath] Onset: 4 Episodic Other nervous system disorders (20 sources) Ataxia; Translations: [Ataxia, unspecified] Onset: 5 05-31-2014 Episodic Other nervous system disorders (20 sources) Skin sensation disturbance; Translations: [Unspecified disturbances of skin sensation] Onset: 4 07-06-2023 Episodic Other nervous system disorders (20 sources) Paresthesia; Translations: [Paresthesia of skin] Onset: 4 11-08-2023 Episodic Other non-traumatic joint disorders (5 sources) Pain in right knee; Translations: [PAIN IN RIGHT KNEE] Onset: 2 Episodic Other non-traumatic joint disorders (1 source) Effusion, right knee; Translations: [EFFUSION RIGHT KNEE] Onset: 2 Episodic Other nutritional; endocrine; and metabolic disorders (20 sources) Obese class II; Translations: [Obesity, unspecified] Onset: 2 Resolved: 3 03-09-2022 Chronic Other nutritional; endocrine; and metabolic disorders (20 sources) Body mass index 30+ - obesity; Translations: [Obesity, unspecified] Onset: 5 Resolved: 7 07-06-2016 Chronic Other nutritional; endocrine; and metabolic disorders (20 sources) History of nutritional deficiency; Translations: [Personal history of other endocrine, nutritional and metabolic disease] Onset: 4 10-05-2023 Episodic Other skin disorders (20 sources) Eruption; Translations: [Rash and other nonspecific skin eruption] Onset: 1 Episodic Other skin disorders (20 sources) Loss of hair; Translations: [Nonscarring hair loss, unspecified] Onset: 1 Episodic Other upper respiratory disease (20 sources) Hoarse; Translations: [Dysphonia] Onset: 4 08-10-2023 Episodic Residual codes; unclassified (3 sources) Flushing; Translations: [FLUSHING] Onset: 2 Resolved: 2 Episodic Unclassified (2 sources) Onset: 4 Resolved: 4 07-13-2023 Unclassified (1 source) Supraventricular tachycardia, unspecified (CMS-HCC); Translations: [Supraventricular tachycardia, unspecified (CMS-HCC)] Onset: 4 Viral infection (20 sources) Cytomegaloviral disease, unspecified; 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] Onset: 2 Resolved: 2 Episodic Results Test Name Value Interpretation Reference Range Facility 25(OH)D3 [facility] 2024 25-hydroxyvitamin D3 [Mass/Vol] 30.9 ng/mL Low 31.0-80.0 [facility] Comment on above: Order Comment: Speci men Type: BLOOD SPECIMENOrdering Facility: [facility] Address: [address] [place] [address] Result Comment: Clas sification of 25 [place] Vitamin D status:Deficiency/Insufficiency: < or = 30 ng/ml.Sufficiency/Optimal Levels: 31-80 ng/mLToxicity: > 100 ng/mL.Test performed by chemiluminescent immunoassay. Performed By: #### 1 989-3 ####[facility] LABCLIA [id number] [place] [address] [place] 25-hydroxyvitamin D3 [Mass/V ol]on 10-02-2024 Interpretation and review of laboratory results Abnormal [facility] The reference range interval was based on an analysis of samples from healthy adults and may not pertain to children from 0-18 years old. [facility] C-REACTIVE PROTEINon 025 CRP [Mass/Vol] mg/dL NINF - 0.9 mg/dL [facility] CBC panel Auto (Bld)on 10-02 Erythrocyte distribution width (RBC) [Ratio] 16.2 % High 11.5 - 15.0 % [facility] Hematocrit (Bld) [Volume fraction] 41.3 % 36.0 - 46.0 % [facility] Hemoglobin (Bld) [Mass/Vol] 13.7 g/dL 11.5 - 15.5 g/dL [facility] Interpretation and review of laboratory results Abnormal [facility] MCH (RBC) [Entitic mass] 31.1 pg 26.0 - 34.0 pg [facility] MCHC (RBC) [Mass/Vol] 33.2 g/dL 30.5 - 36.0 g/dL [facility] MCV (RBC) [Entitic vol] 93.7 fL 80.0 - 100.0 fL [facility] Nucleated RBC (Bld) [#/Vol] NINF [facility] Platelet mean volume (Bld) [Entitic vol] 10.1 fL 9.0 - 12.7 fL [facility] Platelets (Bld) [#/Vol] 265 10*3/uL [facility] RBC (Bld) [#/Vol] 4.41 10*6/uL 3.90 - 5.2 0 m/uL [facility] WBC (Bld) [#/Vol] 10.07 10*3/uL [facility] Erythrocyte distribution width (RBC) [Ratio] 16.2 % High 11.5-15.0 [facility] Comment on above: Order Comment: Speci men Type: BLOOD SPECIMENOrdering Facility: [facility] Address: [address] [place] [address] Performed By: #### 5 8410-2 ####[facility] LABIA [id number] [place] [address] Hematocrit (Bld) [Volume fraction] 41.3 % Normal 36.0-46.0 [facility] Comment on above: Order Comment: Speci men Type: BLOOD SPECIMENOrdering Facility: [facility] Address: [address] [place] [address] Performed By: #### 5 8410-2 ####[facility] LABCLIA [id number] [place] [address] Hemoglobin (Bld) [Mass/Vol] 13.7 g/dL Normal 11.5-15.5 [facility] Comment on above: Order Comment: Speci men Type: BLOOD SPECIMENOrdering Facility: [facility] Address: [address] [place] [address] Performed By: #### 5 8410-2 ####[facility] LABCLIA [id number] [place] [address] MCH (RBC) [Entitic mass] 31.1 pg Normal 26.0-34.0 [facility] Comment on above: Order Comment: Speci men Type: BLOOD SPECIMENOrdering Facility: [facility] Address: [address] [place] [address] Performed By: #### 5 8410-2 ####[facility] LABCLIA [id number] [place] [address] MCHC (RBC) [Mass/Vol] 33.2 g/dL Normal 30.5-36.0 [facility] Comment on above: Order Comment: Speci men Type: BLOOD SPECIMENOrdering Facility: [facility] Address: [address] [place] [address] Performed By: #### 5 8410-2 ####[facility] LABCLIA [id number] [place] [address] MCV (RBC) [Entitic vol] 93.7 fL Normal 80.0-100.0 [facility] Comment on above: Order Comment: Speci men Type: BLOOD SPECIMENOrdering Facility: [facility] Address: [address] [place] [address] Performed By: #### 5 8410-2 ####[facility] LABCLIA [id number] [place] [address] Nucleated RBC (Bld) [#/Vol] 10*3/uL Normal <0.01 [facility] Comment on above: Order Comment: Speci men Type: BLOOD SPECIMENOrdering Facility: [facility] Address: [address] [place] [address] Performed By: #### 5 8410-2 ####[facility] LABCLIA [id number] [place] [address] Platelet mean volume (Bld) [Entitic vol] 10.1 fL Normal 9.0-12.7 [facility] Comment on above: Order Comment: Speci men Type: BLOOD SPECIMENOrdering Facility: [facility] Address: [address] [place] [address] Performed By: #### 5 8410-2 ####[facility] LABCLIA [id number] [place] [address] Platelets (Bld) [#/Vol] 265 10*3/uL Normal 150-400 [facility] Comment on above: Order Comment: Speci men Type: BLOOD SPECIMENOrdering Facility: [facility] Address: [address] [place] [address] Performed By: #### 5 8410-2 ####[facility] LABCLIA [id number] [place] [address] RBC (Bld) [#/Vol] 4.41 10*6/uL Normal 3.90-5.20 [facility] Comment on above: Order Comment: Speci men Type: BLOOD SPECIMENOrdering Facility: [facility] Address: [address] [place] [address] Performed By: #### 5 8410-2 ####[facility] LABIA [id number] [place] [address] WBC (Bld) [#/Vol] 10.07 10*3/uL Normal 3.70-11.00 [facility] Comment on above: Order Comment: Speci men Type: BLOOD SPECIMENOrdering Facility: [facility] Address: [address] [id number] Performed By: #### 5 8410-2 ####[facility] LABCLIA [id number] [place] [address] CRP SerPl-mCncon 10-02-2024 CRP [Mass/Vol] mg/L Normal <0.9 [facility] Comment on above: Order Comment: Speci men Type: BLOOD SPECIMENOrdering Facility: [facility] Address: [address] [place], [place] [id number] Performed By: #### 1 988-5 ####[facility] LABCLIA [id number] [address] [place] CRP [Mass/Vol]on 10-02-2024 Interpretation and review of laboratory results Normal [facility] Comprehensive metabolic 2000 panelOrdered By: Josse Merlos on 10-02-2024 Albumin [Mass/Vol] 3.9 g/dL 3.9 - 4.9 g/dL [facility] ALP [Catalytic activity/Vol] 61 U/L 34 - 123 U/L [facility] ALT [Catalytic activity/Vol] 41 U/L High 7 - 38 U/L [facility] Anion gap [Moles/Vol] 14 mmol/L 8 - 15 mmol/L [facility] AST [Catalytic activity/Vol] 18 U/L 13 - 35 U/L [facility] Bilirubin [Mass/Vol] 0.2 mg/dL 0.2 - 1 .3 mg/dL [facility] Calcium [Mass/Vol] 9.6 mg/dL 8.5 - 10. 2 mg/dL [facility] Chloride [Moles/Vol] 107 mmol/L 98 - 10 7 mmol/L [facility] CO2 [Moles/Vol] 20 mmol/L Low 22 - 30 mmol/L [facility] Creatinine [Mass/Vol] 0.59 mg/dL 0.58 - 0.96 mg/dL [facility] GFR/1.73 sq M.predicted among non-blacks MDRD (S/P/Bld) [Vol rate/Area] 115 mL/min/{1.73_m2} - PINF [facility] Comment on above: Estimated Glomerular Filtration [...] not accurately reflect actual GFR. Glucose [Mass/Vol] 216 mg/dL High 74 - 99 mg/dL [facility] Comment on above: The [place] Diab[employer] s Association (ADA) provides guidance for [...] Standards of Medical Care in Diabetes 2016, [place] [employer] Association. Diabetes Care. 2016.39(Suppl 1). Interpretation and review of laboratory results Abnormal [facility] Potassium [Moles/Vol] 4.1 mmol/L 3.7 - 5.1 mmol/L [facility] Protein [Mass/Vol] 6.8 g/dL 6.3 - 8.0 g/dL [facility] Sodium [Moles/Vol] 141 mmol/L 136 - 144 mmol/L [facility] Urea nitrogen [Mass/Vol] 19 mg/dL 7 - 21 mg/dL [facility] Comprehensive metabolic 2000 panelon 10-02-2024 Albumin [Mass/Vol] 3.9 g/dL Normal 3.9-4.9 [facility] Comment on above: Order Comment: Speci men Type: BLOOD SPECIMENOrdering Facility: [facility] Address: [address] [place] [address] Performed By: #### 2 4323-8 ####[facility] LABCLIA [id number] [place] [address] ALP [Catalytic activity/Vol] 61 U/L Normal 34-123 [facility] Comment on above: Order Comment: Speci men Type: BLOOD SPECIMENOrdering Facility: [facility] Address: [address] [place] [address] Performed By: #### 2 4323-8 ####[facility] LABCLIA [id number] [place] [address] ALT [Catalytic activity/Vol] 41 U/L High 7-38 [facility] Comment on above: Order Comment: Speci men Type: BLOOD SPECIMENOrdering Facility: [facility] Address: [address] [place] [address] Performed By: #### 2 4323-8 ####[facility] LABCLIA [id number] [place] [address] Anion gap [Moles/Vol] 14 mmol/L Normal 8-15 [facility] Comment on above: Order Comment: Speci men Type: BLOOD SPECIMENOrdering Facility: [facility] Address: [address] [place] [address] Performed By: #### 2 4323-8 ####[facility] LABCLIA [id number] [place] [address] AST [Catalytic activity/Vol] 18 U/L Normal 13-35 [facility] Comment on above: Order Comment: Speci men Type: BLOOD SPECIMENOrdering Facility: [facility] Address: [address] [place] [address] Performed By: #### 2 4323-8 ####[facility] LABCLIA [id number] [place] [address] Bilirubin [Mass/Vol] 0.2 mg/dL Normal 0.2-1.3 [facility] Comment on above: Order Comment: Speci men Type: BLOOD SPECIMENOrdering Facility: [facility] Address: [address] [place] [address] Performed By: #### 2 4323-8 ####[facility] LABCLIA [id number] [place] [address] Calcium [Mass/Vol] 9.6 mg/dL Normal 8.5-10.2 [facility] Comment on above: Order Comment: Speci men Type: BLOOD SPECIMENOrdering Facility: [facility] Address: [address] [place] [address] Performed By: #### 2 4323-8 ####[facility] LABCLIA [id number] [place] [address] Chloride [Moles/Vol] 107 mmol/L Normal 98-107 [facility] Comment on above: Order Comment: Speci men Type: BLOOD SPECIMENOrdering Facility: [facility] Address: [address] [place] [address] Performed By: #### 2 4323-8 ####[facility] LABCLIA [id number] [place] [address] CO2 [Moles/Vol] 20 mmol/L Low 22-30 [facility] Comment on above: Order Comment: Speci men Type: BLOOD SPECIMENOrdering Facility: [facility] Address: [address] [place] [address] Performed By: #### 2 4323-8 ####[facility] LABCLIA [id number] [place] [address] Creatinine [Mass/Vol] 0.59 mg/dL Normal 0.58-0.96 [facility] Comment on above: Order Comment: Speci men Type: BLOOD SPECIMENOrdering Facility: [facility] Address: [address] [place] [address] Performed By: #### 2 4323-8 ####[facility] LABCLIA [id number] [place] [address] Creatinine and Glomerular filtration rate.predicted panel (S/P/Bld) 115 mL/min/1.73m??? Normal >=60 [facility] Comment on above: Order Comment: Speci men Type: BLOOD SPECIMENOrdering Facility: [facility] Address: [address] [place] [address] Result Comment: Erin mated Glomerular Filtration Rate [...] actual GFR. Performed By: #### 2 4323-8 ####[facility] LABCLIA [id number] [place] [address] Glucose [Mass/Vol] 216 mg/dL High 74-99 [facility] Comment on above: Order Comment: Semaj cortés Type: BLOOD SPECIMENOrdering Facility: [facility] Address: [address] [place] [address] Result Comment: The [place] Diabetes Association (ADA) provides guidance for cutoff [...] Standards of Medical Care in Diabetes 2016, [place] [employer] Association. Diabetes Care. 2016.39(Suppl 1). Performed By: #### 2 4323-8 ####[facility] LABCLIA [id number] [place] [address] Potassium [Moles/Vol] 4.1 mmol/L Normal 3.7-5.1 [facility] Comment on above: Order Comment: Semaj cortés Type: BLOOD SPECIMENOrdering Facility: [facility] Address: [address] [place] [address] Performed By: #### 2 4323-8 ####[facility] LABCLIA [id number] [place] [address] Protein [Mass/Vol] 6.8 g/dL Normal 6.3-8.0 [facility] Comment on above: Order Comment: Speci men Type: BLOOD SPECIMENOrdering Facility: [facility] Address: [address] [place] [address] Performed By: #### 2 4323-8 ####[facility] LABCLIA [id number] [place] [address] Sodium [Moles/Vol] 141 mmol/L Normal 136-144 [facility] Comment on above: Order Comment: Speci men Type: BLOOD SPECIMENOrdering Facility: [facility] Address: [address] [place] [address] Performed By: #### 2 4323-8 ####[facility] LABCLIA [id number] [place] [address] Urea nitrogen [Mass/Vol] 19 mg/dL Normal 7-21 [facility] Comment on above: Order Comment: Speci men Type: BLOOD SPECIMENOrdering Facility: [facility] Address: [address] [place] [address] Performed By: #### 2 4323-8 ####[facility] LABCLIA [id number] [place] [address] ESR Westergren method (Bld) [Velocity]on 10-02-2024 ESR (Bld) [Velocity] 28 mm/h High [facility] Interpretation and review of laboratory results Abnormal [facility] ESR (Bld) [Velocity] 28 mm/h High 0-20 [facility] Comment on above: Order Comment: Speci men Type: BLOOD SPECIMENOrdering Facility: [facility] Address: [address] [place] [address] Performed By: #### 4 537-7 ####[facility] LABCLIA [id number] [place] [address] [place] VITAMIN D 25 HYDROXYon 10-02 25-hydroxyvitamin D3 [Mass/Vol] 30.9 ng/mL Low 31.0 - 80.0 ng/mL [facility] Comment on above: Classification of 25 [place] Vitamin D status: Deficiency/Insufficiency: < or = 30 ng/ml. Sufficiency/Optimal Levels: 31-80 ng/mL Toxicity: > 100 ng/mL. Test performed by chemiluminescent immunoassay. CNOVon 09-19-2024 CNOV Normal [facility] DNA EXTRACTION BLOODon 09-19 CONCENTRATION (NG/UL) 189.3 ng/ul Normal [facility]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 Performed By: #### 5 8410-2 ####[facility] LABIA [id number] [place] [id number] [place] RBC (Bld) [#/Vol] 4.44 10*6/uL Normal 3.90-5.20 [facility] Comment on above: Order Comment: Speci men Type: BLOOD SPECIMENOrdering Facility: [facility] Address: [address] [place] [address] Performed By: #### 5 8410-2 ####[facility]ATION[facility] LABIA [id number] [place] [address] [place] WBC (Bld) [#/Vol] 12.66 10*3/uL High 3.70-11.00 [facility] Comment on above: Order Comment: Speci men Type: BLOOD SPECIMENOrdering Facility: [facility] Address: [address] [place] [address] Performed By: #### 5 8410-2 ####[facility] LABCLIA [id number] [place] [address] [place] CRP SerPl-mCncon 02-07-2025 CRP [Mass/Vol] 0.1 mg/dL Normal <0.9 [facility] Comment on above: Order Comment: Speci men Type: BLOOD SPECIMENOrdering Facility: [facility] Address: [address] [place] [address] Performed By: #### 2 4328, 1987-09 ####[facility] LABCLIA [id number] [place] [address] [place] Comprehensive metabolic 2000 panelon 06-30-2024 Albumin [Mass/Vol] 4.0 g/dL Normal 3.9-4.9 [facility] Comment on above: Order Comment: Speci men Type: BLOOD SPECIMENOrdering Facility: [facility] Address: [address] [place] [address] Performed By: #### 2 4328, 1987-09 ####[facility] LABCLIA [id number] [place] [address] [place] ALP [Catalytic activity/Vol] 52 U/L Normal 34-123 [facility] Comment on above: Order Comment: Speci men Type: BLOOD SPECIMENOrdering Facility: [facility] Address: [address] [place] [address] Performed By: #### 2 43207-29, 1987-09 ####[facility] LABCLIA [id number] [place] [address] [place] ALT [Catalytic activity/Vol] 26 U/L Normal 7-38 [facility] Comment on above: Order Comment: Speci men Type: BLOOD SPECIMENOrdering Facility: [facility] Address: [address] [place] [address] Performed By: #### 2 4328, 1987-09 ####[facility] LABCLIA [id number] [place] [address] [place] Anion gap [Moles/Vol] 10 mmol/L Normal 8-15 [facility] Comment on above: Order Comment: Speci men Type: BLOOD SPECIMENOrdering Facility: [facility] Address: [address] [place] [address] Performed By: #### 2 4322-12, 1987-09 ####[facility] LABCLIA [id number] [place] [address] [place] AST [Catalytic activity/Vol] 12 U/L Low 13-35 [facility] Comment on above: Order Comment: Speci men Type: BLOOD SPECIMENOrdering Facility: [facility] Address: [address] [place], [place] [address] Performed By: #### 2 4322-12, 1987-09 ####[facility] LABCLIA [id number] [place] [address] [place] Bilirubin [Mass/Vol] 0.3 mg/dL Normal 0.2-1.3 [facility] Comment on above: Order Comment: Speci men Type: BLOOD SPECIMENOrdering Facility: [facility] Address: [place] [address] Performed By: #### 2 4322-12, 1987-09 ####[facility]ATION[facility] LABIA [id number] [place] [address] [place] Calcium [Mass/Vol] 9.5 mg/dL Normal 8.5-10.2 [facility] Comment on above: Order Comment: Speci men Type: BLOOD SPECIMENOrdering Facility: [facility] Address: [address] [place] [id number] Performed By: #### 2 4322-12, 1987-09 ####[facility] LABCLIA [id number] [place] [address] [place] Chloride [Moles/Vol] 103 mmol/L Normal 98-107 [facility] Comment on above: Order Comment: Speci men Type: BLOOD SPECIMENOrdering Facility: [facility] Address: [address] [id number] Performed By: #### 2 4322-12, 1987-09 ####[facility] LABCLIA [id number] [place] [address] [place] CO2 [Moles/Vol] 27 mmol/L Normal 22-30 [facility] Comment on above: Order Comment: Speci men Type: BLOOD SPECIMENOrdering Facility: [facility] Address: [address] [place] [address] Performed By: #### 2 4323, 1987-09 ####[facility] LABIA [id number] [place] [id number] [place] Creatinine [Mass/Vol] 0.78 mg/dL Normal 0.58-0.96 [facility] Comment on above: Order Comment: Speci men Type: BLOOD SPECIMENOrdering Facility: [facility] Address: [address] [place] [address] Performed By: #### 2 43207-29, 1987-09 ####[facility] LABIA [id number] [place] [id number] [facility] Creatinine and Glomerular filtration rate.predicted panel (S/P/Bld) 97 mL/min/1.73m??? Normal >=60 [facility] Comment on above: Order Comment: Speci men Type: BLOOD SPECIMENOrdering Facility: [facility] Address: [address] [place] [address] Result Comment: Erin mated Glomerular Filtration Rate [...] reflect actual GFR. Performed By: #### 2 43238, 1987-09 ####[facility] LABIA [id number] [place] [id number] [place] Glucose [Mass/Vol] 116 mg/dL High 74-99 [facility] Comment on above: Order Comment: Speci men Type: BLOOD SPECIMENOrdering Facility: [facility] Address: [address] [place] [address] Result Comment: The [place] [employer] (ADA) provides guidance for cutoff [...] Standards of Medical Care in Diabetes 2016, [place] [employer]. Diabetes Care. 2016.39(Suppl 1). Performed By: #### 2 4322-12, 1987-09 ####[facility] LABIA [id number] [place] [id number] [place] Potassium [Moles/Vol] 3.8 mmol/L Normal 3.7-5.1 [facility] Comment on above: Order Comment: Speci men Type: BLOOD SPECIMENOrdering Facility: [facility] Address: [address] [place], [place] [address] Performed By: #### 2 4322-12, 1987-09 ####[facility] LABIA [id number] [place] [id number] [place] Protein [Mass/Vol] 7.6 g/dL Normal 6.3-8.0 [facility] Comment on above: Order Comment: Speci men Type: BLOOD SPECIMENOrdering Facility: [facility] Address: [address] [place] [id number] Performed By: #### 2 4322-12, 1987-09 ####[facility] LABIA [id number] [place] [address] [place] Sodium [Moles/Vol] 140 mmol/L Normal 136-144 [facility] Comment on above: Order Comment: Speci men Type: BLOOD SPECIMENOrdering Facility: [facility] Address: [address] [place] [address] Performed By: #### 2 4322-12, 1987-09 ####[facility] LABCLIA [id number] [place] [id number] [place] Urea nitrogen [Mass/Vol] 18 mg/dL Normal 7- [facility] Comment on above: Order Comment: Speci men Type: BLOOD SPECIMENOrdering Facility: [facility] Address: [address] [place] [address] Performed By: #### 2 4328, 1987-09 ####[facility] LABCLIA [id number] [place] [id number] [place] ESR Westergren method (Bld) [Velocity]on 06-30-2024 ESR (Bld) [Velocity] 28 mm/h High 0-20 [facility] Comment on above: Order Comment: Speci men Type: BLOOD SPECIMENOrdering Facility: [facility] Address: [address] [place] [address] Performed By: #### 4 537-7 ####[facility] LABCLIA [id number] [place] [address] [place] CNPNon 06-16-2024 CNPN Normal [facility] ALLIED HEALTHon 06-13-2024 ALLIED HEALTH Normal [facility] CBC W Auto Differential pane l (Bld)on 06-13-2024 Basophils (Bld) [#/Vol] 0.10 10*3/uL [facility] Basophils/100 WBC (Bld) 0.7 % [facility] Differential cell count method Nom (Bld) Auto [facility] Eosinophils (Bld) [#/Vol] 0.15 10*3/uL [facility] Eosinophils/100 WBC (Bld) 1.1 % [facility] Erythrocyte distribution width (RBC) [Ratio] 14.2 % 11.5 - 15.0 % [facility] Hematocrit (Bld) [Volume fraction] 39.0 % 36.0 - 46.0 % [facility] Hemoglobin (Bld) [Mass/Vol] 13.0 g/dL 11.5 - 15.5 g/dL [facility] Immature granulocytes (Bld) [#/Vol] 0.21 10*3/uL High [facility] Immature granulocytes/100 WBC (Bld) 1.5 % [facility] Interpretation and review of laboratory results Abnormal [facility] Lymphocytes (Bld) [#/Vol] 2.16 10*3/uL [facility] Lymphocytes/100 WBC (Bld) 15.4 % [facility] MCH (RBC) [Entitic mass] 30.5 pg 26.0 - 34.0 pg [facility] MCHC (RBC) [Mass/Vol] 33.3 g/dL 30.5 - 36.0 g/dL [facility] MCV (RBC) [Entitic vol] 91.5 fL 80.0 - 100.0 fL [facility] Monocytes (Bld) [#/Vol] 0.79 10*3/uL [facility] Monocytes/100 WBC (Bld) 5.6 % [facility] Neutrophils (Bld) [#/Vol] 10.59 10*3/uL High [facility] Neutrophils/100 WBC (Bld) 75.7 % [facility] Nucleated RBC (Bld) [#/Vol] [facility] Nucleated RBC/100 WBC (Bld) [Ratio] 0.0 % /100 WBC [facility] Platelet mean volume (Bld) [Entitic vol] 9.9 fL 9.0 - 12.7 fL [facility] Platelets (Bld) [#/Vol] 327 10*3/uL [facility] RBC (Bld) [#/Vol] 4.26 10*6/uL 3.90 - 5.2 0 m/uL [facility] WBC (Bld) [#/Vol] 14.00 10*3/uL High [facility] Basophils (Bld) [#/Vol] 0.10 10*3/uL Normal <0.11 [facility] Comment on above: Order Comment: Speci men Type: BLOOD SPECIMENOrdering Facility: [facility] Address: [address] [place] [address] Performed By: #### 5 7021-8 ####[facility] LABCLIA [id number] [place] [address] Basophils/100 WBC (Bld) 0.7 % Normal [facility] Comment on above: Order Comment: Speci men Type: BLOOD SPECIMENOrdering Facility: [facility] Address: [address] [place] [address] Performed By: #### 5 7021-8 ####[facility] LABCLIA [id number] [place] [address] Differential cell count method Nom (Bld) Auto Normal [facility] Comment on above: Order Comment: Speci men Type: BLOOD SPECIMENOrdering Facility: [facility] Address: [address] [place] [address] Performed By: #### 5 7021-8 ####[facility] LABCLIA [id number] [place] [address] Eosinophils (Bld) [#/Vol] 0.15 10*3/uL Normal <0.46 [facility] Comment on above: Order Comment: Speci men Type: BLOOD SPECIMENOrdering Facility: [facility] Address: [address] [place] [address] Performed By: #### 5 7021-8 ####[facility] LABCLIA [id number] [place] [address] Eosinophils/100 WBC (Bld) 1.1 % Normal [facility] Comment on above: Order Comment: Speci men Type: BLOOD SPECIMENOrdering Facility: [facility] Address: [address] [place] [address] Performed By: #### 5 7021-8 ####[facility] LABCLIA [id number] [place] [address] Erythrocyte distribution width (RBC) [Ratio] 14.2 % Normal 11.5-15.0 [facility] Comment on above: Order Comment: Speci men Type: BLOOD SPECIMENOrdering Facility: [facility] Address: [address] [place] [address] Performed By: #### 5 7021-8 ####[facility] LABCLIA [id number] [place] [address] Hematocrit (Bld) [Volume fraction] 39.0 % Normal 36.0-46.0 [facility] Comment on above: Order Comment: Speci men Type: BLOOD SPECIMENOrdering Facility: [facility] Address: [address] [place] [address] Performed By: #### 5 7021-8 ####[facility] LABCLIA [id number] [place] [address] Hemoglobin (Bld) [Mass/Vol] 13.0 g/dL Normal 11.5-15.5 [facility] Comment on above: Order Comment: Speci men Type: BLOOD SPECIMENOrdering Facility: [facility] Address: [address] [place] [address] Performed By: #### 5 7021-8 ####[facility] LABCLIA [id number] [place] [address] Immature granulocytes (Bld) [#/Vol] 0.21 10*3/uL High <0.10 [facility] Comment on above: Order Comment: Speci men Type: BLOOD SPECIMENOrdering Facility: [facility] Address: [address] [place] [address] Performed By: #### 5 7021-8 ####[facility] LABCLIA [id number] [place] [address] Immature granulocytes/100 WBC (Bld) 1.5 % Normal [facility] Comment on above: Order Comment: Speci men Type: BLOOD SPECIMENOrdering Facility: [facility] Address: [address] [place] [address] Performed By: #### 5 7021-8 ####[facility] LABCLIA [id number] [place] [address] Lymphocytes (Bld) [#/Vol] 2.16 10*3/uL Normal 1.00-4.00 [facility] Comment on above: Order Comment: Speci men Type: BLOOD SPECIMENOrdering Facility: [facility] Address: [address] [place] [address] Performed By: #### 5 7021-8 ####[facility] LABCLIA [id number] [place] [address] Lymphocytes/100 WBC (Bld) 15.4 % Normal [facility] Comment on above: Order Comment: Speci men Type: BLOOD SPECIMENOrdering Facility: [facility] Address: [address] [place] [address] Performed By: #### 5 7021-8 ####[facility] LABCLIA [id number] [place] [address] MCH (RBC) [Entitic mass] 30.5 pg Normal 26.0-34.0 [facility] Comment on above: Order Comment: Speci men Type: BLOOD SPECIMENOrdering Facility: [facility] Address: [address] [place] [address] Performed By: #### 5 7021-8 ####[facility] LABCLIA [id number] [place] [address] MCHC (RBC) [Mass/Vol] 33.3 g/dL Normal 30.5-36.0 [facility] Comment on above: Order Comment: Speci men Type: BLOOD SPECIMENOrdering Facility: [facility] Address: [address] [place] [address] Performed By: #### 5 7021-8 ####[facility] LABCLIA [id number] [place] [address] MCV (RBC) [Entitic vol] 91.5 fL Normal 80.0-100.0 [facility] Comment on above: Order Comment: Speci men Type: BLOOD SPECIMENOrdering Facility: [facility] Address: [address] [place] [address] Performed By: #### 5 7021-8 ####[facility] LABCLIA [id number] [place] [address] Monocytes (Bld) [#/Vol] 0.79 10*3/uL Normal <0.87 [facility] Comment on above: Order Comment: Speci men Type: BLOOD SPECIMENOrdering Facility: [facility] Address: [address] [place] [address] Performed By: #### 5 7021-8 ####[facility] LABCLIA [id number] [place] [address] Monocytes/100 WBC (Bld) 5.6 % Normal [facility] Comment on above: Order Comment: Speci men Type: BLOOD SPECIMENOrdering Facility: [facility] Address: [address] [place] [address] Performed By: #### 5 7021-8 ####[facility] LABCLIA [id number] [place] [address] Neutrophils (Bld) [#/Vol] 10.59 10*3/uL High 1.45-7.50 [facility] Comment on above: Order Comment: Speci men Type: BLOOD SPECIMENOrdering Facility: [facility] Address: [address] [place] [address] Performed By: #### 5 7021-8 ####[facility] LABCLIA [id number] [place] [address] Neutrophils/100 WBC (Bld) 75.7 % Normal [facility] Comment on above: Order Comment: Speci men Type: BLOOD SPECIMENOrdering Facility: [facility] Address: [address] [place] [address] Performed By: #### 5 7021-8 ####[facility] LABCLIA [id number] [place] [address] Nucleated RBC (Bld) [#/Vol] 10*3/uL Normal <0.01 [facility] Comment on above: Order Comment: Speci men Type: BLOOD SPECIMENOrdering Facility: [facility] Address: [address] [place] [address] Performed By: #### 5 7021-8 ####[facility] LABCLIA [id number] [place] [address] Nucleated RBC/100 WBC (Bld) [Ratio] 0.0 /100 WBC Normal [facility] Comment on above: Order Comment: Speci men Type: BLOOD SPECIMENOrdering Facility: [facility] Address: [address] [place] [address] Performed By: #### 5 7021-8 ####[facility] LABIA [id number] [place] [address] Platelet mean volume (Bld) [Entitic vol] 9.9 fL Normal 9.0-12.7 [facility] Comment on above: Order Comment: Speci men Type: BLOOD SPECIMENOrdering Facility: [facility] Address: [address] [place] [address] Performed By: #### 5 7021-8 ####[facility] LABIA [id number] [place] [address] Platelets (Bld) [#/Vol] 327 10*3/uL Normal 150-400 [facility] Comment on above: Order Comment: Speci men Type: BLOOD SPECIMENOrdering Facility: [facility] Address: [address] [place] [address] Performed By: #### 5 7021-8 ####[facility] LABIA [id number] [place] [address] RBC (Bld) [#/Vol] 4.26 10*6/uL Normal 3.90-5.20 [facility] Comment on above: Order Comment: Speci men Type: BLOOD SPECIMENOrdering Facility: [facility] Address: [address] [place] [address] Performed By: #### 5 7021-8 ####[facility] LABIA [id number] [place] [address] WBC (Bld) [#/Vol] 14.00 10*3/uL High 3.70-11.00 [facility] Comment on above: Order Comment: Speci men Type: BLOOD SPECIMENOrdering Facility: [facility] Address: [address] [place] [address] Performed By: #### 5 7021-8 ####[facility] LABCLIA [id number] [place] [address] CNOVSPon 06-13-2024 CNOVSP Normal [facility] metabolic 2000 panelOrdered By: Josse Merlos on 06-13-2024 Albumin [Mass/Vol] 3.9 g/dL 3.9 - 4.9 g/dL [facility] ALP [Catalytic activity/Vol] 73 U/L 34 - 123 U/L [facility] ALT [Catalytic activity/Vol] 24 U/L 7 - 38 U/L [facility] Anion gap [Moles/Vol] 15 mmol/L 8 - 15 mmol/L [facility] AST [Catalytic activity/Vol] 12 U/L Low 13 - 35 U/L [facility] Bilirubin [Mass/Vol] mg/dL Low 0.2 - 1 .3 mg/dL [facility] Calcium [Mass/Vol] 9.2 mg/dL 8.5 - 10. 2 mg/dL [facility] Chloride [Moles/Vol] 104 mmol/L 98 - 10 7 mmol/L [facility] CO2 [Moles/Vol] 19 mmol/L Low 22 - 30 mmol/L [facility] Creatinine [Mass/Vol] 0.58 mg/dL 0.58 - 0.96 mg/dL [facility] GFR/1.73 sq M.predicted among non-blacks MDRD (S/P/Bld) [Vol rate/Area] 115 mL/min/{1.73_m2} - PINF [facility] Comment on above: Estimated Glomerular Filtration [...] 163 mg/dL High 74 - 99 mg/dL [facility] Comment on above: The [place] Diabete s Association (ADA) provides guidance for [...] Standards of Medical Care in Diabetes 2016, [place] Diabetes Association. Diabetes Care. 2016.39(Suppl 1). Interpretation and review of laboratory results Abnormal [facility] Potassium [Moles/Vol] 3.9 mmol/L 3.7 - 5.1 mmol/L [facility] Protein [Mass/Vol] 6.8 g/dL 6.3 - 8.0 g/dL [facility] Sodium [Moles/Vol] 138 mmol/L 136 - 144 mmol/L [facility] Urea nitrogen [Mass/Vol] 13 mg/dL 7 - 21 mg/dL [facility] Comprehensive metabolic 2000 panelon 06-13-2024 Albumin [Mass/Vol] 3.9 g/dL Normal 3.9-4.9 [facility] Comment on above: Order Comment: Speci men Type: BLOOD SPECIMENOrdering Facility: [facility] Address: [address] [place] [address] Performed By: #### 2 4323-8 ####[facility] LABCLIA [id number] [place] [address] ALP [Catalytic activity/Vol] 73 U/L Normal 34-123 [facility] Comment on above: Order Comment: Speci men Type: BLOOD SPECIMENOrdering Facility: [facility] Address: [address] [place] [address] Performed By: #### 2 4323-8 ####[facility] LABCLIA [id number] [place] [address] ALT [Catalytic activity/Vol] 24 U/L Normal 7-38 [facility] Comment on above: Order Comment: Speci men Type: BLOOD SPECIMENOrdering Facility: [facility] Address: [address] [place] [address] Performed By: #### 2 4323-8 ####[facility] LABCLIA [id number] [place] [address] Anion gap [Moles/Vol] 15 mmol/L Normal 8-15 [facility] Comment on above: Order Comment: Speci men Type: BLOOD SPECIMENOrdering Facility: [facility] Address: [address] [place] [address] Performed By: #### 2 4323-8 ####[facility] LABCLIA [id number] [place] [address] AST [Catalytic activity/Vol] 12 U/L Low 13-35 [facility] Comment on above: Order Comment: Speci men Type: BLOOD SPECIMENOrdering Facility: [facility] Address: [address] [place] [address] Performed By: #### 2 4323-8 ####[facility] LABCLIA [id number] [place] [address] Bilirubin [Mass/Vol] mg/dL Low 0.2-1.3 [facility] Comment on above: Order Comment: Speci men Type: BLOOD SPECIMENOrdering Facility: [facility] Address: [address] [place] [address] Performed By: #### 2 4323-8 ####[facility] LABCLIA [id number] [place] [address] Calcium [Mass/Vol] 9.2 mg/dL Normal 8.5-10.2 [facility] Comment on above: Order Comment: Speci men Type: BLOOD SPECIMENOrdering Facility: [facility] Address: [address] [place] [address] Performed By: #### 2 4323-8 ####[facility] LABCLIA [id number] [place] [address] Chloride [Moles/Vol] 104 mmol/L Normal 98-107 [facility] Comment on above: Order Comment: Speci men Type: BLOOD SPECIMENOrdering Facility: [facility] Address: [address] [place] [address] Performed By: #### 2 4323-8 ####[facility] LABCLIA [id number] [place] [address] CO2 [Moles/Vol] 19 mmol/L Low 22-30 [facility] Comment on above: Order Comment: Speci men Type: BLOOD SPECIMENOrdering Facility: [facility] Address: [address] [place], [place] [address] Performed By: #### 2 4323-8 ####[facility] LABCLIA [id number] [place] [address] Creatinine [Mass/Vol] 0.58 mg/dL Normal 0.58-0.96 [facility] Comment on above: Order Comment: Speci men Type: BLOOD SPECIMENOrdering Facility: [facility] Address: [address] [place] [address] Performed By: #### 2 4323-8 ####[facility] LABCLIA [id number] [place] [address] Creatinine and Glomerular filtration rate.predicted panel (S/P/Bld) 115 mL/min/1.73m??? Normal >=60 [facility] Comment on above: Order Comment: Speci men Type: BLOOD SPECIMENOrdering Facility: [facility] Address: [address] [place], [place] [address] Result Comment: Erin mated Glomerular Filtration Rate [...] actual GFR. Performed By: #### 2 4323-8 ####[facility] LABCLIA [id number] [place] [address] Glucose [Mass/Vol] 163 mg/dL High 74-99 [facility] Comment on above: Order Comment: Speci men Type: BLOOD SPECIMENOrdering Facility: [facility] Address: [address] [place] [address] Result Comment: The [place] Diabetes Association (ADA) provides guidance for cutoff [...] Standards of Medical Care in Diabetes 2016, [place] Diabetes Association. Diabetes Care. 2016.39(Suppl 1). Performed By: #### 2 4323-8 ####[facility] LABCLIA [id number] [place] [address] Potassium [Moles/Vol] 3.9 mmol/L Normal 3.7-5.1 [facility] Comment on above: Order Comment: Speci men Type: BLOOD SPECIMENOrdering Facility: [facility] Address: [address] [place] [address] Performed By: #### 2 4323-8 ####[facility] LABCLIA [id number] [place] [address] Protein [Mass/Vol] 6.8 g/dL Normal 6.3-8.0 [facility] Comment on above: Order Comment: Speci men Type: BLOOD SPECIMENOrdering Facility: [facility] Address: [address] [place], [place] [address] Performed By: #### 2 4323-8 ####[facility] LABCLIA [id number] [place] [address] Sodium [Moles/Vol] 138 mmol/L Normal 136-144 [facility] Comment on above: Order Comment: Speci men Type: BLOOD SPECIMENOrdering Facility: [facility] Address: [address] [place] [address] Performed By: #### 2 4323-8 ####[facility] LABCLIA [id number] [place] [address] Urea nitrogen [Mass/Vol] 13 mg/dL Normal 7-21 [facility] Comment on above: Order Comment: Speci men Type: BLOOD SPECIMENOrdering Facility: [facility] Address: [address] [place] [address] Performed By: #### 2 4323-8 ####[facility] LABCLIA [id number] [place] [address] ESR Westergren method (Bld) [Velocity]on 06-13-2024 ESR (Bld) [Velocity] 30 mm/h High [facility] Interpretation and review of laboratory results Abnormal [facility] ESR (Bld) [Velocity] 30 mm/h High 0-20 [facility] Comment on above: Order Comment: Speci men Type: BLOOD SPECIMENOrdering Facility: [facility] Address: [address] [place] [address] Performed By: #### 4 537-7 ####[facility] LABCLIA [id number] [place] [address] [place] FERRITINon 06-13-2024 Ferritin [Mass/Vol] 30.9 ng/mL 14.7 - 2 05.1 ng/mL [facility] FOLATE, SERUMon 06-13-2024 Folate [Mass/Vol] 19.6 ng/mL 4.7 - PINF ng/mL [facility] Ferritin SerPl-mCncon 2024 Ferritin [Mass/Vol] 30.9 ng/mL Normal 14.7-205.1 [facility] Comment on above: Order Comment: Speci men Type: BLOOD SPECIMENOrdering Facility: [facility] Address: [address] [place] [address] Performed By: #### 5 0190-8, 2284-8, 2276-4, 9 ####[facility] LABCLIA [id number] [place] [id number] [place] Ferritin [Mass/Vol]on 2024 Interpretation and review of laboratory results Normal [facility] Folate SerPl-mCncon 06-13-19 25 Folate [Mass/Vol] 19.6 ng/mL Normal >4.7 [facility] Comment on above: Order Comment: Speci men Type: BLOOD SPECIMENOrdering Facility: [facility] Address: [address] [place] [address] Performed By: #### 5 0190-8, 2284-8, 6-4, 2132-01 ####[facility] LABCLIA [id number] [place] [address] [place] IMMUNOGLOBULINS,IGG,IGA,IGMo n 06-13-2024 IgA [Mass/Vol] 170 mg/dL Normal 70-400 [facility] Comment on above: Order Comment: Speci men Type: BLOOD SPECIMENOrdering Facility: [facility] Address: [address] [place] [address] Performed By: #### S ERIMM ####[facility] LABCLIA [id number] [place] [address] [place] IgG [Mass/Vol] 663 mg/dL Low 700-1600 [facility] Comment on above: Order Comment: Speci men Type: BLOOD SPECIMENOrdering Facility: [facility] Address: [address] [place] [address] Performed By: #### S ERIMM ####[facility] LABCLIA [id number] [place] [address] [place] IgM [Mass/Vol] 376 mg/dL High 40-230 [facility] Comment on above: Order Comment: Speci men Type: BLOOD SPECIMENOrdering Facility: [facility] Address: [address] [place] [address] Performed By: #### S ERIMM ####[facility] LABIA [id number] [place] [address] [place] Iron and Iron binding capaci ty panelon 06-13-2024 Iron [Mass/Vol] 64 ug/dL Normal 41-186 [facility] Comment on above: Order Comment: Speci men Type: BLOOD SPECIMENOrdering Facility: [facility] Address: [address] [place] [address] Performed By: #### 5 0190-8, 2284-8, 2276-4, 9 ####[facility] [id number] [place] [address] [place] Iron binding capacity [Mass/Vol] 409 ug/dL High 232-386 [facility] Comment on above: Order Comment: Speci men Type: BLOOD SPECIMENOrdering Facility: [facility] Address: [address] [place] [address] Performed By: #### 5 0190-8, 2284-8, 6-4, 9 ####[facility] [id number] [place] [address] [place] Iron/TIBC [Molar ratio] 15.6 % Normal 15.0-57.0 [facility] Comment on above: Order Comment: Speci men Type: BLOOD SPECIMENOrdering Facility: [facility] Address: [address] [place] [address] Performed By: #### 5 0190-8, 2284-8, 2276-4, 9 ####[facility] LABIA [id number] [place] [address] [place] Laboratory - Chemistry and C hemistry - challengeon 06-13-2024 IgA [Mass/Vol] 170 mg/dL 70 - 400 mg/dL [facility] IgG [Mass/Vol] 663 mg/dL Low 700 - 1600 mg/dL [facility] IgM [Mass/Vol] 376 mg/dL High 40 - 230 mg/dL [facility] No Panel Informationon 06-13 Interpretation and review of laboratory results Normal [facility] Interpretation and review of laboratory results Abnormal [facility] VITAMIN B12on 06-13-2024 Cobalamin (Vitamin B12) [Mass/Vol] 516 pg/mL 232 - 1245 pg/mL [facility] Vit B12 SerPl-mCncon 025 Cobalamin (Vitamin B12) [Mass/Vol] 516 pg/mL Normal 232-1245 [facility] Comment on above: Order Comment: Speci men Type: BLOOD SPECIMENOrdering Facility: [facility] Address: [address] [place] [address] Performed By: #### 5 0190-8, 2284-8, 2276-4, 2132-9 ####[facility] LABCLIA [id number] [address] [place] CNPNon 06-12-2024 CNPN Normal [facility] IGP,APTIMA HPV,AGE GDLNon AGE GDLN ACOG TESTING Note . [facility] Comment on above: TESTS RESULT FLAG UN ITS REF RANGE LAB Clinician Provided Cytology Information Source.............Cervix;Endocervix No. of containers..01 ThinPrep Vial Age Algo ACOG Vicky... 30-65 FLAG LEGEND: L-Low Normal,H-High Normal,LL-Alert Low,HH-Alert High <-Panic Low,>-Panic High,A-Abnormal,AA-Critical Abnormal Performed at: 01 =[address] [address] Aparna Solorzano MD, HPV APTIMA Negative Negative [facility] Comment on above: This nucleic acid am plification test detects fourteen high- risk HPV types (16,18,31,33,35,39,45,51,52,56,58,59,66,68) without differentiation. Performed at: =[address] [id number] Generator Worker: Aparna Solorzano MD, Phone: [phone] Performed at: [address] [id number] Generator Worker: Aparna Solorzano MD, Phone: [phone] IGP, APTIMA HPV, RFX 16/18,45 Note . [facility] Comment on above: TESTS RESULT FLAG UN ITS REF RANGE LAB DIAGNOSIS: 02 NEGATIVE FOR INTRAEPITHELIAL LESION OR MALIGNANCY. Specimen adequacy: 02 Satisfactory for evaluation. Endocervical and/or squamous metaplastic cells (endocervical component) are present. Performed by: 02 Kenzie Kam, Window Air Conditioner Installer (ASCP) . 02 Note: Note 02 The Pap [...] <-Panic Low,>-Panic High,A-Abnormal,AA-Critical Abnormal Performed at: [address] [address] Aparna Solorzano MD, BRUSH-SPATULA CERVIX ENDOCERVIX [facility] CBC W Auto Differential pane l (Bld)on 05-19-2024 Basophils (Bld) [#/Vol] 0.08 10*3/uL [facility] Basophils/100 WBC (Bld) 0.6 % [facility] Differential cell count method Nom (Bld) Auto [facility] Eosinophils (Bld) [#/Vol] 0.17 10*3/uL [facility] Eosinophils/100 WBC (Bld) 1.2 % [facility] Erythrocyte distribution width (RBC) [Ratio] 14.3 % 11.5 - 15.0 % [facility] Hematocrit (Bld) [Volume fraction] 39.8 % 36.0 - 46.0 % [facility] Hemoglobin (Bld) [Mass/Vol] 13.4 g/dL 11.5 - 15.5 g/dL [facility] Immature granulocytes (Bld) [#/Vol] 0.13 10*3/uL High [facility] Immature granulocytes/100 WBC (Bld) 0.9 % [facility] Interpretation and review of laboratory results Abnormal [facility] Lymphocytes (Bld) [#/Vol] 2.96 10*3/uL [facility] Lymphocytes/100 WBC (Bld) 20.5 % [facility] MCH (RBC) [Entitic mass] 31.1 pg 26.0 - 34.0 pg [facility] MCHC (RBC) [Mass/Vol] 33.7 g/dL 30.5 - 36.0 g/dL [facility] MCV (RBC) [Entitic vol] 92.3 fL 80.0 - 100.0 fL [facility] Monocytes (Bld) [#/Vol] 0.87 10*3/uL High [facility] Monocytes/100 WBC (Bld) 6.0 % [facility] Neutrophils (Bld) [#/Vol] 10.20 10*3/uL High [facility] Neutrophils/100 WBC (Bld) 70.8 % [facility] Nucleated RBC (Bld) [#/Vol] NINF [facility] Nucleated RBC/100 WBC (Bld) [Ratio] 0.0 % /100 WBC [facility] Platelet mean volume (Bld) [Entitic vol] 10.1 fL 9.0 - 12.7 fL [facility] Platelets (Bld) [#/Vol] 303 10*3/uL [facility] RBC (Bld) [#/Vol] 4.31 10*6/uL 3.90 - 5.2 0 m/uL [facility] WBC (Bld) [#/Vol] 14.41 10*3/uL High [facility] Basophils (Bld) [#/Vol] 0.08 10*3/uL Normal <0.11 [facility] Comment on above: Order Comment: Speci men Type: BLOOD SPECIMENOrdering Facility: [facility] Address: [address] [place] [address] Performed By: #### 5 7021-8 ####[facility] LABCLIA [id number] [place] [address] Basophils/100 WBC (Bld) 0.6 % Normal [facility] Comment on above: Order Comment: Speci men Type: BLOOD SPECIMENOrdering Facility: [facility] Address: [address] [place] [address] Performed By: #### 5 7021-8 ####[facility] LABCLIA [id number] [place] [address] Differential cell count method Nom (Bld) Auto Normal [facility] Comment on above: Order Comment: Speci men Type: BLOOD SPECIMENOrdering Facility: [facility] Address: [address] [place] [address] Performed By: #### 5 7021-8 ####[facility] LABCLIA [id number] [place] [address] Eosinophils (Bld) [#/Vol] 0.17 10*3/uL Normal <0.46 [facility] Comment on above: Order Comment: Speci men Type: BLOOD SPECIMENOrdering Facility: [facility] Address: [address] [place] [address] Performed By: #### 5 7021-8 ####[facility] LABCLIA [id number] [place] [address] Eosinophils/100 WBC (Bld) 1.2 % Normal [facility] Comment on above: Order Comment: Speci men Type: BLOOD SPECIMENOrdering Facility: [facility] Address: [address] [place] [address] Performed By: #### 5 7021-8 ####[facility] LABCLIA [id number] [place] [address] Erythrocyte distribution width (RBC) [Ratio] 14.3 % Normal 11.5-15.0 [facility] Comment on above: Order Comment: Speci men Type: BLOOD SPECIMENOrdering Facility: [facility] Address: [address] [place] [address] Performed By: #### 5 7021-8 ####[facility] LABCLIA [id number] [place] [address] Hematocrit (Bld) [Volume fraction] 39.8 % Normal 36.0-46.0 [facility] Comment on above: Order Comment: Speci men Type: BLOOD SPECIMENOrdering Facility: [facility] Address: [address] [place] [address] Performed By: #### 5 7021-8 ####[facility] LABCLIA [id number] [place] [address] Hemoglobin (Bld) [Mass/Vol] 13.4 g/dL Normal 11.5-15.5 [facility] Comment on above: Order Comment: Speci men Type: BLOOD SPECIMENOrdering Facility: [facility] Address: [address] [place] [address] Performed By: #### 5 7021-8 ####[facility] LABCLIA [id number] [place] [address] Immature granulocytes (Bld) [#/Vol] 0.13 10*3/uL High <0.10 [facility] Comment on above: Order Comment: Speci men Type: BLOOD SPECIMENOrdering Facility: [facility] Address: [address] [place] [address] Performed By: #### 5 7021-8 ####[facility] LABCLIA [id number] [place] [address] Immature granulocytes/100 WBC (Bld) 0.9 % Normal [facility] Comment on above: Order Comment: Speci men Type: BLOOD SPECIMENOrdering Facility: [facility] Address: [address] [place] [address] Performed By: #### 5 7021-8 ####[facility] LABCLIA [id number] [place] [address] Lymphocytes (Bld) [#/Vol] 2.96 10*3/uL Normal 1.00-4.00 [facility] Comment on above: Order Comment: Speci men Type: BLOOD SPECIMENOrdering Facility: [facility] Address: [address] [place] [address] Performed By: #### 5 7021-8 ####[facility] LABCLIA [id number] [place] [address] Lymphocytes/100 WBC (Bld) 20.5 % Normal [facility] Comment on above: Order Comment: Speci men Type: BLOOD SPECIMENOrdering Facility: [facility] Address: [address] [place] [address] Performed By: #### 5 7021-8 ####[facility] LABCLIA [id number] [place] [address] MCH (RBC) [Entitic mass] 31.1 pg Normal 26.0-34.0 [facility] Comment on above: Order Comment: Speci men Type: BLOOD SPECIMENOrdering Facility: [facility] Address: [address] [place] [address] Performed By: #### 5 7021-8 ####[facility] LABIA [id number] [place] [address] MCHC (RBC) [Mass/Vol] 33.7 g/dL Normal 30.5-36.0 [facility] Comment on above: Order Comment: Speci men Type: BLOOD SPECIMENOrdering Facility: [facility] Address: [address] [place] [address] Performed By: #### 5 7021-8 ####[facility] LABIA [id number] [place] [address] MCV (RBC) [Entitic vol] 92.3 fL Normal 80.0-100.0 [facility] Comment on above: Order Comment: Speci men Type: BLOOD SPECIMENOrdering Facility: [facility] Address: [address] [place] [address] Performed By: #### 5 7021-8 ####[facility] LABCLIA [id number] [place] [address] Monocytes (Bld) [#/Vol] 0.87 10*3/uL High <0.87 [facility] Comment on above: Order Comment: Speci men Type: BLOOD SPECIMENOrdering Facility: [facility] Address: [address] [place] [address] Performed By: #### 5 7021-8 ####[facility] LABCLIA [id number] [place] [address] Monocytes/100 WBC (Bld) 6.0 % Normal [facility] Comment on above: Order Comment: Speci men Type: BLOOD SPECIMENOrdering Facility: [facility] Address: [address] [place] [address] Performed By: #### 5 7021-8 ####[facility] LABCLIA [id number] [place] [address] Neutrophils (Bld) [#/Vol] 10.20 10*3/uL High 1.45-7.50 [facility] Comment on above: Order Comment: Speci men Type: BLOOD SPECIMENOrdering Facility: [facility] Address: [address] [place] [address] Performed By: #### 5 7021-8 ####[facility] LABCLIA [id number] [place] [address] Neutrophils/100 WBC (Bld) 70.8 % Normal [facility] Comment on above: Order Comment: Speci men Type: BLOOD SPECIMENOrdering Facility: [facility] Address: [address] [place] [address] Performed By: #### 5 7021-8 ####[facility] LABCLIA [id number] [place] [address] Nucleated RBC (Bld) [#/Vol] 10*3/uL Normal <0.01 [facility] Comment on above: Order Comment: Speci men Type: BLOOD SPECIMENOrdering Facility: [facility] Address: [address] [place] [address] Performed By: #### 5 7021-8 ####[facility] LABCLIA [id number] [place] [address] Nucleated RBC/100 WBC (Bld) [Ratio] 0.0 /100 WBC Normal [facility] Comment on above: Order Comment: Speci men Type: BLOOD SPECIMENOrdering Facility: [facility] Address: [address] [place] [address] Performed By: #### 5 7021-8 ####[facility] LABCLIA [id number] [place] [address] Platelet mean volume (Bld) [Entitic vol] 10.1 fL Normal 9.0-12.7 [facility] Comment on above: Order Comment: Speci men Type: BLOOD SPECIMENOrdering Facility: [facility] Address: [address] [place] [address] Performed By: #### 5 7021-8 ####[facility] LABCLIA [id number] [place] [address] Platelets (Bld) [#/Vol] 303 10*3/uL Normal 150-400 [facility] Comment on above: Order Comment: Speci men Type: BLOOD SPECIMENOrdering Facility: [facility] Address: [address] [place] [address] Performed By: #### 5 7021-8 ####[facility] LABCLIA [id number] [place] [address] RBC (Bld) [#/Vol] 4.31 10*6/uL Normal 3.90-5.20 [facility] Comment on above: Order Comment: Speci men Type: BLOOD SPECIMENOrdering Facility: [facility] Address: [address] [place] [address] Performed By: #### 5 7021-8 ####[facility] LABCLIA [id number] [place] [address] WBC (Bld) [#/Vol] 14.41 10*3/uL High 3.70-11.00 [facility] Comment on above: Order Comment: Speci men Type: BLOOD SPECIMENOrdering Facility: [facility] Address: [address] [place] [address] Performed By: #### 5 7021-8 ####[facility] LABCLIA [id number] [place] [address] Comprehensive metabolic 2000 panelon 05-19-2024 Albumin [Mass/Vol] 4.0 g/dL 3.9 - 4.9 g/dL [facility] ALP [Catalytic activity/Vol] 79 U/L 34 - 123 U/L [facility] ALT [Catalytic activity/Vol] 25 U/L 7 - 38 U/L [facility] Anion gap [Moles/Vol] 14 mmol/L 8 - 15 mmol/L [facility] AST [Catalytic activity/Vol] 12 U/L Low 13 - 35 U/L [facility] Bilirubin [Mass/Vol] mg/dL Low 0.2 - 1 .3 mg/dL [facility] Calcium [Mass/Vol] 9.4 mg/dL 8.5 - 10. 2 mg/dL [facility] Chloride [Moles/Vol] 105 mmol/L 98 - 10 7 mmol/L [facility] CO2 [Moles/Vol] 21 mmol/L Low 22 - 30 mmol/L [facility] Creatinine [Mass/Vol] 0.49 mg/dL Low 0.58 - 0.96 mg/dL [facility] GFR/1.73 sq M.predicted among non-blacks MDRD (S/P/Bld) [Vol rate/Area] 120 mL/min/{1.73_m2} - PINF [facility] Comment on above: Estimated Glomerular Filtration [...] 155 mg/dL High 74 - 99 mg/dL [facility] Comment on above: The [place] Diabete s Association (ADA) provides guidance for [...] Standards of Medical Care in Diabetes 2016, [place] Diabetes Association. Diabetes Care. 2016.39(Suppl 1). Interpretation and review of laboratory results Abnormal [facility] Potassium [Moles/Vol] 3.8 mmol/L 3.7 - 5.1 mmol/L [facility] Protein [Mass/Vol] 6.6 g/dL 6.3 - 8.0 g/dL [facility] Sodium [Moles/Vol] 140 mmol/L 136 - 144 mmol/L [facility] Urea nitrogen [Mass/Vol] 12 mg/dL 7 - 21 mg/dL [facility] Albumin [Mass/Vol] 4.0 g/dL Normal 3.9-4.9 [facility] Comment on above: Order Comment: Speci men Type: BLOOD SPECIMENOrdering Facility: [facility] Address: [address] [place] [address] Performed By: #### 2 4323-8 ####[facility] LABCLIA [id number] [place] [address] [place] ALP [Catalytic activity/Vol] 79 U/L Normal 34-123 [facility] Comment on above: Order Comment: Speci men Type: BLOOD SPECIMENOrdering Facility: [facility] Address: [address] [place] [address] Performed By: #### 2 4323-8 ####[facility] LABCLIA [id number] [place] [address] [place] ALT [Catalytic activity/Vol] 25 U/L Normal 7-38 [facility] Comment on above: Order Comment: Speci men Type: BLOOD SPECIMENOrdering Facility: [facility] Address: [address] [place] [address] Performed By: #### 2 4323-8 ####[facility] LABCLIA [id number] [place] [address] [place] Anion gap [Moles/Vol] 14 mmol/L Normal 8-15 [facility] Comment on above: Order Comment: Speci men Type: BLOOD SPECIMENOrdering Facility: [facility] Address: [address] [place] [address] Performed By: #### 2 4323-8 ####[facility] LABCLIA [id number] [place] [address] [place] AST [Catalytic activity/Vol] 12 U/L Low 13-35 [facility] Comment on above: Order Comment: Speci men Type: BLOOD SPECIMENOrdering Facility: [facility] Address: [address] [place] [address] Performed By: #### 2 4323-8 ####[facility] LABCLIA [id number] [place] [address] [place] Bilirubin [Mass/Vol] mg/dL Low 0.2-1.3 [facility] Comment on above: Order Comment: Speci men Type: BLOOD SPECIMENOrdering Facility: [facility] Address: [address] [place] [address] Performed By: #### 2 4323-8 ####[facility] LABCLIA [id number] [place] [address] [place] Calcium [Mass/Vol] 9.4 mg/dL Normal 8.5-10.2 [facility] Comment on above: Order Comment: Speci men Type: BLOOD SPECIMENOrdering Facility: [facility] Address: [address] [place] [address] Performed By: #### 2 4323-8 ####[facility] LABCLIA [id number] [place] [address] [place] Chloride [Moles/Vol] 105 mmol/L Normal 98-107 [facility] Comment on above: Order Comment: Speci men Type: BLOOD SPECIMENOrdering Facility: [facility] Address: [address] [place] [address] Performed By: #### 2 4323-8 ####[facility] LABCLIA [id number] [place] [address] [place] CO2 [Moles/Vol] 21 mmol/L Low 22-30 [facility] Comment on above: Order Comment: Speci men Type: BLOOD SPECIMENOrdering Facility: [facility] Address: [address] [place] [address] Performed By: #### 2 4323-8 ####[facility] LABCLIA [id number] [place] [address] [place] Creatinine [Mass/Vol] 0.49 mg/dL Low 0.58-0.96 [facility] Comment on above: Order Comment: Speci men Type: BLOOD SPECIMENOrdering Facility: [facility] Address: [address] [place] [address] Performed By: #### 2 4323-8 ####[facility] LABCLIA [id number] [place] [address] [place] [facility] Creatinine and Glomerular filtration rate.predicted panel (S/P/Bld) 120 mL/min/1.73m??? Normal >=60 [facility] Comment on above: Order Comment: Speci men Type: BLOOD SPECIMENOrdering Facility: [facility] Address: [address] [place] [address] Result Comment: Erin mated Glomerular Filtration Rate [...] actual GFR. Performed By: #### 2 4323-8 ####[facility] LABCLIA [id number] [place] [address] [place] Glucose [Mass/Vol] 155 mg/dL High 74-99 [facility] Comment on above: Order Comment: Speci men Type: BLOOD SPECIMENOrdering Facility: [facility] Address: [address] [place] [address] Result Comment: The [place] Diabetes Association (ADA) provides guidance for cutoff [...] Standards of Medical Care in Diabetes 2016, [place] Diabetes Association. Diabetes Care. 2016.39(Suppl 1). Performed By: #### 2 4323-8 ####[facility] LABIA [id number] [place] [address] [place] Potassium [Moles/Vol] 3.8 mmol/L Normal 3.7-5.1 [facility] Comment on above: Order Comment: Speci men Type: BLOOD SPECIMENOrdering Facility: [facility] Address: [address] [place] [address] Performed By: #### 2 4323-8 ####[facility] LABIA [id number] [place] [address] [place] Protein [Mass/Vol] 6.6 g/dL Normal 6.3-8.0 [facility] Comment on above: Order Comment: Speci men Type: BLOOD SPECIMENOrdering Facility: [facility] Address: [address] [place] [address] Performed By: #### 2 4323-8 ####[facility] LABIA [id number] [place] [address] [place] Sodium [Moles/Vol] 140 mmol/L Normal 136-144 [facility] Comment on above: Order Comment: Speci men Type: BLOOD SPECIMENOrdering Facility: [facility] Address: [address] [place] [address] Performed By: #### 2 4323-8 ####[facility] LABCLIA [id number] [place] [address] [place] Urea nitrogen [Mass/Vol] 12 mg/dL Normal 7-21 [facility] Comment on above: Order Comment: Speci men Type: BLOOD SPECIMENOrdering Facility: [facility] Address: [address] [place] [address] Performed By: #### 2 4323-8 ####[facility] LABCLIA [id number] [place] [address] [place] ESR Westergren method (Bld) [Velocity]on 05-19-2024 ESR (Bld) [Velocity] 21 mm/h High [facility] Interpretation and review of laboratory results Abnormal [facility] ESR (Bld) [Velocity] 21 mm/h High 0-20 [facility] Comment on above: Order Comment: Speci men Type: BLOOD SPECIMENOrdering Facility: [facility] Address: [address] [place] [address] Performed By: #### 4 537-7 ####[facility] LABCLIA [id number] [place] [address] [place] FERRITIN BLDon 05-19-2024 Ferritin [Mass/Vol] 20.6 ng/mL 14.7 - 2 05.1 ng/mL [facility] FOLATE SERUMon 05-19-2024 Folate [Mass/Vol] 11.1 ng/mL 4.7 - PINF ng/mL [facility] Ferritin SerPl-mCncon 2023 Ferritin [Mass/Vol] 20.6 ng/mL Normal 14.7-205.1 [facility] Comment on above: Order Comment: Speci men Type: BLOOD SPECIMENOrdering Facility: [facility] Address: [address] [place] [address] Performed By: #### 5 0190-8, 2276-4, 2284-8, 2132-9 ####[facility] LABCLIA [id number] [place] [address] [place] Folate SerPl-ncon 05-19-20 Folate [Mass/Vol] 11.1 ng/mL Normal >4.7 [facility] Comment on above: Order Comment: Speci men Type: BLOOD SPECIMENOrdering Facility: [facility] Address: [address] [place] [address] Performed By: #### 5 0190-8, 6-4, 8, 2132-01 ####[facility] LABCLIA [id number] [place] [address] [place] Iron and Iron binding capaci ty panelon 05-19-2024 Interpretation and review of laboratory results Abnormal [facility] Iron [Mass/Vol] 47 ug/dL 41 - 186 ug/dL [facility] Iron binding capacity [Mass/Vol] 420 ug/dL High 232 - 386 ug/dL [facility] Iron/TIBC [Molar ratio] 11.2 % Low 15.0 - 57.0 % [facility] Iron [Mass/Vol] 47 ug/dL Normal 41-186 [facility] Comment on above: Order Comment: Speci men Type: BLOOD SPECIMENOrdering Facility: [facility] Address: [address] [place] [address] Performed By: #### 5 0190-8, 2275-4, 8, 2132-01 ####[facility] LABCLIA [id number] [place] [address] [place] Iron binding capacity [Mass/Vol] 420 ug/dL High 232-386 [facility] Comment on above: Order Comment: Speci men Type: BLOOD SPECIMENOrdering Facility: [facility] Address: [address] [place] [address] Performed By: #### 5 0190-8, 2275-4, 2283-8, 2132-01 ####[facility] LABCLIA [id number] [place] [address] [place] Iron/TIBC [Molar ratio] 11.2 % Low 15.0-57.0 [facility] Comment on above: Order Comment: Speci men Type: BLOOD SPECIMENOrdering Facility: [facility] Address: [address] [place], [place] [address] Performed By: #### 5 0190-8, 2276-4, 4-8, 9 ####[facility] LABCLIA [id number] [place] [address] [place] No Panel Informationon 05-19 Interpretation and review of laboratory results Normal [facility] VITAMIN B12 BLOODon 05-19-20 24 Cobalamin (Vitamin B12) [Mass/Vol] 632 pg/mL 232 - 1245 pg/mL [facility] Vit B12 SerPl-mCncon 024 Cobalamin (Vitamin B12) [Mass/Vol] 632 pg/mL Normal 232-1245 [facility] Comment on above: Order Comment: Speci men Type: BLOOD SPECIMENOrdering Facility: [facility] Address: [address] [place] [address] Performed By: #### 5 0190-8, 6-4, 2283-8, 2132-01 ####[facility] LABCLIA [id number] [place] [address] [place] CNNURSEon 04-26-2024 CNNURSE Normal [facility] CNPNon 04-10-2024 CNPN Normal [facility] ALL CBC WITH AUTO DIFFon BASOPHILS ABSOLUTE AUTO 0.1 [facility] Basophils/100 WBC (Bld) 0.4 % 0.2 - 2.0 % [facility] Eosinophils/100 WBC (Bld) 0.4 % Low 0.9 - 7.0 % [facility] Erythrocyte distribution width (RBC) [Ratio] 15.1 % High 11.0 - 15.0 % [facility] Hematocrit (Bld) [Volume fraction] 39.7 % 36.0 - 48.0 % [facility] Hemoglobin (Bld) [Mass/Vol] 13 g/dL 12.0 - 16.0 g/dL [facility] IMMATURE GRANULOCYTES ABS AUTO 0.1 High [facility] Immature granulocytes/100 WBC (Bld) 0.9 % High 0.0 - 0.5 % [facility] Interpretation and review of laboratory results Abnormal [facility] LYMPHOCYTES ABSOLUTE AUTO 2.1 [facility] Lymphocytes/100 WBC (Bld) 18.4 % Low 20.5 - 60.0 % [facility] MCH (RBC) [Entitic mass] 30.9 pg 26.7 - 34.0 pg [facility] MCHC (RBC) [Mass/Vol] 32.7 g/dL 29.9 - 35.2 g/dL [facility] MCV (RBC) [Entitic vol] 94.3 fL 81.0 - 99.0 fL [facility] MONOCYTES ABSOLUTE AUTO 0.8 [facility] Monocytes/100 WBC (Bld) 6.7 % 1.7 - 12.0 % [facility] NEUTROPHILS ABSOLUTE AUTO 8.3 High [facility] Neutrophils/100 WBC (Bld) 73.2 % 43.0 - 75.0 % [facility] Platelet mean volume (Bld) [Entitic vol] 10.1 fL 9.5 - 13.5 fL [facility] TBH EO # 0.1 [facility]H PLT 326 [facility]21 [facility].4 High [facility] ALL THYROID STIM HORMONEon 06-06-2023 Interpretation and review of laboratory results Abnormal [facility] TSH Qn 0.333 m[IU]/L Low [facility] ALL THYROXINE (T4) FREEon Free T4 [Mass/Vol] 1.01 ng/dL 0.76 - 1. 46 ng/dL [facility] CCF APTTon 04-06-2024 aPTT Coag (Bld) [Time] 25.6 s [facility] MLR HEMOGLOBIN A1Con 024 Glucose [Mass/Vol] 134 mg/dL [facility] HbA1c (Bld) [Mass fraction] 6.3 % High 4.5 - 6.2 % [facility] Comment on above: ADA RECOMMENDED LIMI T 4.0 - 6.0 ADA THERAPEUTIC TARGET < 7.0 ACTION SUGGESTED > 7.0 Interpretation and review of laboratory results Abnormal [facility] No Panel Informationon 04-06 [facility] PROTHROMBIN TIME INR W/O COUMon 04-06-2024 PT Coag (PPP) [Time] 9.6 s [facility] TB INR <0.93 [facility] Comment on above: DESIRED INR: 2.0-3.0 CONDITIONS NOT LISTED BELOW 2.5-3.5 FOR PROSTHETIC HEART VALVE REPLACEMENT 2.5-3.5 RECURRENT THROMBOSIS TBH PREG QUANT HCGon 024 HCG QUANTITATIVE <1 mIU/mL [facility] Comment on above: 5-50 0.2-1 WEEK 50-500 1-2 WEEKS 100-5,000 2-3 WEEKS 500-10,000 3-4 WEEKS 1,000-50,000 4-5 WEEKS 10,000-100,000 5-6 WEEKS 15,000-200,000 6-8 WEEKS 10,000-100,000 2-3 MONTHS CNPNon 04-02-2024 CNPN Normal [facility] 25(OH)D3 SerPl-mCncon 2023 25-hydroxyvitamin D3 [Mass/Vol] 19.9 ng/mL Low 31.0-80.0 [facility] Comment on above: Order Comment: Speci men Type: BLOOD SPECIMENOrdering Facility: [facility] Address: [address] [place] [address] Result Comment: Clas sification of 25 [place] Vitamin D status:Deficiency/Insufficiency: < or = 30 ng/ml.Sufficiency/Optimal Levels: 31-80 ng/mLToxicity: > 100 ng/mL.Test performed by chemiluminescent immunoassay. Performed By: #### 1 989-3 ####[facility] LABCLIA [id number] [place] [address] [place] BLOOD TB SCREENon 03-23-2024 M. tuberculosis tuberculin stim IFN-g Ql (Bld) Negative Normal [facility] Comment on above: Order Comment: Speci men Type: BLOOD SPECIMENOrdering Facility: [facility] Address: [address] [place] [address] Performed By: #### I NFTBP ####[facility] LABCLIA [id number] [place] [address] [place] MITOGEN MINUS NIL >10.00 Normal >=0.50 [facility] Comment on above: Order Comment: Speci men Type: BLOOD SPECIMENOrdering Facility: [facility] Address: [address] [place] [address] Performed By: #### I NFTBP ####[facility] LABCLIA [id number] [place] [address] [place] TB GAMMA INTERPRETATION Normal [facility] Comment on above: Order Comment: Speci men Type: BLOOD SPECIMENOrdering Facility: [facility] Address: [address] [place] [address] Performed By: #### I NFTBP ####[facility] LABCLIA [id number] [place] [address] [place] TB NIL <0.00 Normal <=8.00 [facility] Comment on above: Order Comment: Speci men Type: BLOOD SPECIMENOrdering Facility: [facility] Address: [address] [place] [address] Performed By: #### I NFTBP ####[facility] LABCLIA [id number] [place] [address] [place] TB1 AG MINUS NIL 0.00 IU/mL Normal <0.35 [facility] Comment on above: Order Comment: Speci men Type: BLOOD SPECIMENOrdering Facility: [facility] Address: [address] [place] [address] Performed By: #### I NFTBP ####[facility] LABCLIA [id number] [place] [address] [place] TB2 AG MINUS NIL 0.00 IU/mL Normal <0.35 [facility] Comment on above: Order Comment: Speci men Type: BLOOD SPECIMENOrdering Facility: [facility] Address: [address] [place] [address] Performed By: #### I NFTBP ####[facility] LABCLIA [id number] [place] [address] [place] Bacteria Bld Culton 03-23-20 24 Bacteria identified Cx Nom (Bld) CULTURE, BLOOD: No growth 5 days Normal [facility] Comment on above: Performed By: #### 6 00-7 ####[facility] LABCLIA [id number] [place] [address] [place] CBC W Auto Differential pane l (Bld)on 03-23-2024 Basophils (Bld) [#/Vol] 0.06 10*3/uL Normal <0.11 [facility] Comment on above: Order Comment: Speci men Type: BLOOD SPECIMENOrdering Facility: [facility] Address: [address] [place] [address] Performed By: #### 5 7021-8 ####[facility] LABCLIA [id number] [place] [address] Basophils/100 WBC (Bld) 0.5 % Normal [facility] Comment on above: Order Comment: Speci men Type: BLOOD SPECIMENOrdering Facility: [facility] Address: [address] [place] [address] Performed By: #### 5 7021-8 ####[facility] LABCLIA [id number] [place] [address] Differential cell count method Nom (Bld) Auto Normal [facility] Comment on above: Order Comment: Speci men Type: BLOOD SPECIMENOrdering Facility: [facility] Address: [address] [place] [address] Performed By: #### 5 7021-8 ####[facility] LABCLIA [id number] [place] [address] Eosinophils (Bld) [#/Vol] 0.13 10*3/uL Normal <0.46 [facility] Comment on above: Order Comment: Speci men Type: BLOOD SPECIMENOrdering Facility: [facility] Address: [address] [place] [address] Performed By: #### 5 7021-8 ####[facility] LABCLIA [id number] [place] [address] Eosinophils/100 WBC (Bld) 1.0 % Normal [facility] Comment on above: Order Comment: Speci men Type: BLOOD SPECIMENOrdering Facility: [facility] Address: [address] [place] [address] Performed By: #### 5 7021-8 ####[facility] LABCLIA [id number] [place] [address] Erythrocyte distribution width (RBC) [Ratio] 15.2 % High 11.5-15.0 [facility] Comment on above: Order Comment: Speci men Type: BLOOD SPECIMENOrdering Facility: [facility] Address: [address] [place] [address] Performed By: #### 5 7021-8 ####[facility] LABCLIA [id number] [place] [address] Hematocrit (Bld) [Volume fraction] 39.3 % Normal 36.0-46.0 [facility] Comment on above: Order Comment: Speci men Type: BLOOD SPECIMENOrdering Facility: [facility] Address: [address] [place] [address] Performed By: #### 5 7021-8 ####[facility] LABCLIA [id number] [place] [address] Hemoglobin (Bld) [Mass/Vol] 13.1 g/dL Normal 11.5-15.5 [facility] Comment on above: Order Comment: Speci men Type: BLOOD SPECIMENOrdering Facility: [facility] Address: [address] [place] [address] Performed By: #### 5 7021-8 ####[facility] LABCLIA [id number] [place] [address] Immature granulocytes (Bld) [#/Vol] 0.12 10*3/uL High <0.10 [facility] Comment on above: Order Comment: Speci men Type: BLOOD SPECIMENOrdering Facility: [facility] Address: [address] [place] [address] Performed By: #### 5 7021-8 ####[facility] LABCLIA [id number] [place] [address] Immature granulocytes/100 WBC (Bld) 0.9 % Normal [facility] Comment on above: Order Comment: Speci men Type: BLOOD SPECIMENOrdering Facility: [facility] Address: [address] [place] [address] Performed By: #### 5 7021-8 ####[facility] LABCLIA [id number] [place] [address] Lymphocytes (Bld) [#/Vol] 2.03 10*3/uL Normal 1.00-4.00 [facility] Comment on above: Order Comment: Speci men Type: BLOOD SPECIMENOrdering Facility: [facility] Address: [address] [place] [address] Performed By: #### 5 7021-8 ####[facility] LABCLIA [id number] [place] [address] Lymphocytes/100 WBC (Bld) 15.7 % Normal [facility] Comment on above: Order Comment: Speci men Type: BLOOD SPECIMENOrdering Facility: [facility] Address: [address] [place] [address] Performed By: #### 5 7021-8 ####[facility] LABCLIA [id number] [place] [address] MCH (RBC) [Entitic mass] 31.3 pg Normal 26.0-34.0 [facility] Comment on above: Order Comment: Speci men Type: BLOOD SPECIMENOrdering Facility: [facility] Address: [address] [place] [address] Performed By: #### 5 7021-8 ####[facility] LABCLIA [id number] [place] [address] MCHC (RBC) [Mass/Vol] 33.3 g/dL Normal 30.5-36.0 [facility] Comment on above: Order Comment: Speci men Type: BLOOD SPECIMENOrdering Facility: [facility] Address: [address] [place] [address] Performed By: #### 5 7021-8 ####[facility] LABCLIA [id number] [place] [address] MCV (RBC) [Entitic vol] 93.8 fL Normal 80.0-100.0 [facility] Comment on above: Order Comment: Speci men Type: BLOOD SPECIMENOrdering Facility: [facility] Address: [address] [place] [address] Performed By: #### 5 7021-8 ####[facility] LABCLIA [id number] [place] [address] Monocytes (Bld) [#/Vol] 0.65 10*3/uL Normal <0.87 [facility] Comment on above: Order Comment: Speci men Type: BLOOD SPECIMENOrdering Facility: [facility] Address: [address] [place] [address] Performed By: #### 5 7021-8 ####[facility] LABCLIA [id number] [place] [address] Monocytes/100 WBC (Bld) 5.0 % Normal [facility] Comment on above: Order Comment: Speci men Type: BLOOD SPECIMENOrdering Facility: [facility] Address: [address] [place] [address] Performed By: #### 5 7021-8 ####[facility] LABCLIA [id number] [place] [address] Neutrophils (Bld) [#/Vol] 9.90 10*3/uL High 1.45-7.50 [facility] Comment on above: Order Comment: Speci men Type: BLOOD SPECIMENOrdering Facility: [facility] Address: [address] [place] [address] Performed By: #### 5 7021-8 ####[facility] LABCLIA [id number] [place] [address] Neutrophils/100 WBC (Bld) 76.9 % Normal [facility] Comment on above: Order Comment: Speci men Type: BLOOD SPECIMENOrdering Facility: [facility] Address: [address] [place] [address] Performed By: #### 5 7021-8 ####[facility] LABCLIA [id number] [place] [address] Nucleated RBC (Bld) [#/Vol] 10*3/uL Normal <0.01 [facility] Comment on above: Order Comment: Speci men Type: BLOOD SPECIMENOrdering Facility: [facility] Address: [address] [place] [address] Performed By: #### 5 7021-8 ####[facility] LABCLIA [id number] [place] [address] Nucleated RBC/100 WBC (Bld) [Ratio] 0.0 /100 WBC Normal [facility] Comment on above: Order Comment: Speci men Type: BLOOD SPECIMENOrdering Facility: [facility] Address: [address] [place] [address] Performed By: #### 5 7021-8 ####[facility] LABCLIA [id number] [place] [address] Platelet mean volume (Bld) [Entitic vol] 10.0 fL Normal 9.0-12.7 [facility] Comment on above: Order Comment: Speci men Type: BLOOD SPECIMENOrdering Facility: [facility] Address: [address] [place] [address] Performed By: #### 5 7021-8 ####[facility] LABCLIA [id number] [place] [address] Platelets (Bld) [#/Vol] 262 10*3/uL Normal 150-400 [facility] Comment on above: Order Comment: Speci men Type: BLOOD SPECIMENOrdering Facility: [facility] Address: [address] [place] [address] Performed By: #### 5 7021-8 ####[facility] LABCLIA [id number] [place] [address] RBC (Bld) [#/Vol] 4.19 10*6/uL Normal 3.90-5.20 [facility] Comment on above: Order Comment: Speci men Type: BLOOD SPECIMENOrdering Facility: [facility] Address: [address] [place] [address] Performed By: #### 5 7021-8 ####[facility] LABCLIA [id number] [place] [address] WBC (Bld) [#/Vol] 12.89 10*3/uL High 3.70-11.00 [facility] Comment on above: Order Comment: Speci men Type: BLOOD SPECIMENOrdering Facility: [facility] Address: [address] [place] [address] Performed By: #### 5 7021-8 ####[facility] LABIA [id number] [place] [address] CNNURSEon 03-23-2024 CNNURSE Normal [facility] CRP SerPl-mCncon 03-23-2024 CRP [Mass/Vol] 0.3 mg/dL Normal <0.9 [facility] Comment on above: Order Comment: Speci men Type: BLOOD SPECIMENOrdering Facility: [facility] Address: [address] [place] [address] Performed By: #### 5 0190-8, 2276-4, 1987-09 ####[facility] LABCLIA [id number] [facility] [id number] [address] [place] Comprehensive metabolic 2000 panelon 03-23-2024 Albumin [Mass/Vol] 3.9 g/dL Normal 3.9-4.9 [facility] Comment on above: Order Comment: Speci men Type: BLOOD SPECIMENOrdering Facility: [facility] Address: [address] [place] [address] Performed By: #### 2 4323-8 ####[facility] LABCLIA [id number] [place] [address] [place] ALP [Catalytic activity/Vol] 70 U/L Normal 34-123 [facility] Comment on above: Order Comment: Speci men Type: BLOOD SPECIMENOrdering Facility: [facility] Address: [address] [place] [address] Performed By: #### 2 4323-8 ####[facility] LABCLIA [id number] [place] [address] [place] ALT [Catalytic activity/Vol] 27 U/L Normal 7-38 [facility] Comment on above: Order Comment: Speci men Type: BLOOD SPECIMENOrdering Facility: [facility] Address: [address] [place] [address] Performed By: #### 2 4323-8 ####[facility] LABCLIA [id number] [place] [address] [place] Anion gap [Moles/Vol] 15 mmol/L Normal 8-15 [facility] Comment on above: Order Comment: Speci men Type: BLOOD SPECIMENOrdering Facility: [facility] Address: [address] [place] [address] Performed By: #### 2 4323-8 ####[facility] LABCLIA [id number] [place] [address] [place] AST [Catalytic activity/Vol] 20 U/L Normal 13-35 [facility] Comment on above: Order Comment: Speci men Type: BLOOD SPECIMENOrdering Facility: [facility] Address: [address] [place], [place] [address] Performed By: #### 2 4323-8 ####[facility] LABCLIA [id number] [place] [address] [place] Bilirubin [Mass/Vol] mg/dL Low 0.2-1.3 [facility] Comment on above: Order Comment: Speci men Type: BLOOD SPECIMENOrdering Facility: [facility] Address: [address] [place] [address] Performed By: #### 2 4323-8 ####[facility] LABCLIA [id number] [place] [address] [place] Calcium [Mass/Vol] 9.2 mg/dL Normal 8.5-10.2 [facility] Comment on above: Order Comment: Speci men Type: BLOOD SPECIMENOrdering Facility: [facility] Address: [address] [place] [address] Performed By: #### 2 4323-8 ####[facility] LABCLIA [id number] [place] [address] [place] Chloride [Moles/Vol] 104 mmol/L Normal 98-107 [facility] Comment on above: Order Comment: Speci men Type: BLOOD SPECIMENOrdering Facility: [facility] Address: [address] [place] [address] Performed By: #### 2 4323-8 ####[facility] LABCLIA [id number] [place] [address] [place] CO2 [Moles/Vol] 20 mmol/L Low 22-30 [facility] Comment on above: Order Comment: Speci men Type: BLOOD SPECIMENOrdering Facility: [facility] Address: [address] [place] [address] Performed By: #### 2 4323-8 ####[facility] LABCLIA [id number] [place] [address] [place] Creatinine [Mass/Vol] 0.61 mg/dL Normal 0.58-0.96 [facility] Comment on above: Order Comment: Semaj cortés Type: BLOOD SPECIMENOrdering Facility: [facility] Address: [address] [place] [address] Performed By: #### 2 4323-8 ####[facility] LABCLIA [id number] [place] [address] [place] Creatinine and Glomerular filtration rate.predicted panel (S/P/Bld) 114 mL/min/1.73m??? Normal >=60 [facility] Comment on above: Order Comment: Semaj cortés Type: BLOOD SPECIMENOrdering Facility: [facility] Address: [address] [place] [address] Result Comment: Erin mated Glomerular Filtration Rate [...] actual GFR. Performed By: #### 2 4323-8 ####[facility] LABCLIA [id number] [place] [address] [place] Glucose [Mass/Vol] 152 mg/dL High 74-99 [facility] Comment on above: Order Comment: Semaj cortés Type: BLOOD SPECIMENOrdering Facility: [facility] Address: [address] [place] [address] Result Comment: The [place] [employer] (ADA) provides guidance for cutoff [...] Standards of Medical Care in Diabetes 2016, [place] [employer]. Diabetes Care. 2016.39(Suppl 1). Performed By: #### 2 4323-8 ####[facility] LABCLIA [id number] [place] [address] [place] Potassium [Moles/Vol] 4.3 mmol/L Normal 3.7-5.1 [facility] Comment on above: Order Comment: Speci men Type: BLOOD SPECIMENOrdering Facility: [facility] Address: [address] [place] [address] Performed By: #### 2 4323-8 ####[facility] LABCLIA [id number] [place] [address] [place] Protein [Mass/Vol] 6.6 g/dL Normal 6.3-8.0 [facility] Comment on above: Order Comment: Speci men Type: BLOOD SPECIMENOrdering Facility: [facility] Address: [address] [place] [address] Performed By: #### 2 4323-8 ####[facility] LABCLIA [id number] [place] [address] [place] Sodium [Moles/Vol] 139 mmol/L Normal 136-144 [facility] Comment on above: Order Comment: Speci men Type: BLOOD SPECIMENOrdering Facility: [facility] Address: [address] [place] [address] Performed By: #### 2 4323-8 ####[facility] LABCLIA [id number] [place] [id number] [place] Urea nitrogen [Mass/Vol] 20 mg/dL Normal 7-21 [facility] Comment on above: Order Comment: Speci men Type: BLOOD SPECIMENOrdering Facility: [facility] Address: [address] [place] [id number] Performed By: #### 2 4323-8 ####[facility] LABCLIA [id number] [place] [id number] [place] ESR Westergren method (Bld) [Velocity]on 03-23-2024 ESR (Bld) [Velocity] 27 mm/h High 0-20 [facility] Comment on above: Order Comment: Speci men Type: BLOOD SPECIMENOrdering Facility: [facility] Address: [address] [place] [address] Performed By: #### 4 537-7 ####[facility] LABIA [id number] [place] [address] [place] Ferritin SerPl-mCncon 2023 Ferritin [Mass/Vol] 33.3 ng/mL Normal 14.7-205.1 [facility] Comment on above: Order Comment: Speci men Type: BLOOD SPECIMENOrdering Facility: [facility] Address: [address] [place] [address] Performed By: #### 5 0190-8, 2276-4, 1987-09 ####[facility] [id number] [place] [address] [place] Folate SerPl-mCncon 03-23-20 Folate [Mass/Vol] 13.0 ng/mL Normal >4.7 [facility] Comment on above: Order Comment: Speci men Type: BLOOD SPECIMENOrdering Facility: [facility] Address: [address] [place] [address] Performed By: #### 2 132-9, 2284-8 ####[facility] LABIA [id number] [place] [id number] [place] HCG ( test) Ql (U)o n 03-23-2024 Interpretation and review of laboratory results Normal [facility] Preg Test, Ur Negative Negative [facility] IMMUNOGLOBULINS,IGG,IGA,IGMo n 03-23-2024 IgA [Mass/Vol] 171 mg/dL Normal 70-400 [facility] Comment on above: Order Comment: Speci men Type: BLOOD SPECIMENOrdering Facility: [facility] Address: [address] [place] [address] Performed By: #### S ERIMM ####[facility] LABCLIA [id number] [place] [address] [place] IgG [Mass/Vol] 476 mg/dL Low 700-1600 [facility] Comment on above: Order Comment: Speci men Type: BLOOD SPECIMENOrdering Facility: [facility] Address: [address] [place] [address] Performed By: #### S ERIMM ####[facility] LABCLIA [id number] [place] [address] [place] IgM [Mass/Vol] 373 mg/dL High 40-230 [facility] Comment on above: Order Comment: Speci men Type: BLOOD SPECIMENOrdering Facility: [facility] Address: [address] [place] [address] Performed By: #### S ERIMM ####[facility] LABCLIA [id number] [place] [address] [place] Iron and Iron binding capaci ty panelon 03-23-2024 Iron [Mass/Vol] 67 ug/dL Normal 41-186 [facility] Comment on above: Order Comment: Speci men Type: BLOOD SPECIMENOrdering Facility: [facility] Address: [address] [place] [address] Performed By: #### 5 0190-8, 2275-08, 1987-09 ####[facility] LABCLIA [id number] [place] [id number] [place] Iron binding capacity [Mass/Vol] 399 ug/dL High 232-386 [facility] Comment on above: Order Comment: Speci men Type: BLOOD SPECIMENOrdering Facility: [facility] Address: [address] [place] [address] Performed By: #### 5 0190-8, 2275-08, 1987-09 ####[facility] LABCLIA [id number] [place] [address] [place] Iron/TIBC [Molar ratio] 16.8 % Normal 15.0-57.0 [facility] Comment on above: Order Comment: Speci men Type: BLOOD SPECIMENOrdering Facility: [facility] Address: [address] [place] [address] Performed By: #### 5 0190-8, 2276-4, 1987-09 ####[facility] LABCLIA [id number] [place] [address] [place] Urinalysis macro (dipstick) panel (U)on 03-23-2024 Bilirubin, UA Negative Negative - 4(70) +++ mg/dL [facility] Blood, UA Positive Negative - 50 Dusty/mcL [facility] Comment on above: large Clarity, UA Cloudy [facility] Color, UA Dark Georgie [facility] Glucose, UA Positive Negative - 2000(110) ++++ mg/dL [facility] Comment on above: 100 mg Interpretation and review of laboratory results Abnormal [facility] Ketones, UA Negative Negative - 160(16) ++++ mg/dL [facility] Leukocytes, UA Positive Negative - 500+++ Andi/mcL [facility] Comment on above: small Nitrite, UA Negative Negative - Positive [facility] pH, UA 5.5 5 - 9 [facility] Protein, UA Positive Negative - 2000(20) ++++ mg/dL [facility] Comment on above: 30 mg Spec Grav, UA 1.03 1 - 1.03 [facility] Urobilinogen, UA 0.2 0.2 - 12 mg/dL [facility] Vit B12 [facility] Cobalamin (Vitamin B12) [Mass/Vol] 607 pg/mL Normal 232-1245 [facility] Comment on above: Order Comment: Speci men Type: BLOOD SPECIMENOrdering Facility: [facility] Address: [address] [place] [address] Performed By: #### 2 132-9, 2288 ####[facility] LABCLIA [id number] [facility] [id number] [id number] [place] Office Visiton 03-08-2024 Follow-up visit [id number] Ariadna Haley 1980 F Date Provider Department Center 03/08/2024 Renny-CALOS [facility]END[facility] Family History Problem Relation Age of Onset Heart failure Maternal Grandmother Heart attack Maternal Grandfather Family Status - Relation Status Age at Maternal Grandmother Maternal Grandfather Level of Service:54440 [place] OFFICE/OUTPATIENT NEW MODERATE MDM 45 MINUTES Normal [facility] CNPNon 02-22-2024 CNPN Normal [facility] CBC W Auto Differential pane l (Bld)on 02-21-2024 Basophils (Bld) [#/Vol] 0.03 10*3/uL Normal <0.11 [facility] Comment on above: Order Comment: Speci men Type: BLOOD SPECIMENOrdering Facility: [facility] Address: [address] [place] [address] Performed By: #### 5 7021-8 ####[facility] LABCLIA [id number] [place] [address] Basophils/100 WBC (Bld) 0.2 % Normal [facility] Comment on above: Order Comment: Speci men Type: BLOOD SPECIMENOrdering Facility: [facility] Address: [address] [place] [address] Performed By: #### 5 7021-8 ####[facility] LABCLIA [id number] [place] [address] Differential cell count method Nom (Bld) Auto Normal [facility] Comment on above: Order Comment: Speci men Type: BLOOD SPECIMENOrdering Facility: [facility] Address: [address] [place] [address] Performed By: #### 5 7021-8 ####[facility] LABCLIA [id number] [place] [address] Eosinophils (Bld) [#/Vol] 0.03 10*3/uL Normal <0.46 [facility] Comment on above: Order Comment: Speci men Type: BLOOD SPECIMENOrdering Facility: [facility] Address: [address] [place] [address] Performed By: #### 5 7021-8 ####[facility] LABCLIA [id number] [place] [address] Eosinophils/100 WBC (Bld) 0.2 % Normal [facility] Comment on above: Order Comment: Speci men Type: BLOOD SPECIMENOrdering Facility: [facility] Address: [address] [place] [address] Performed By: #### 5 7021-8 ####[facility] LABCLIA [id number] [place] [address] Erythrocyte distribution width (RBC) [Ratio] 15.1 % High 11.5-15.0 [facility] Comment on above: Order Comment: Speci men Type: BLOOD SPECIMENOrdering Facility: [facility] Address: [address] [place] [address] Performed By: #### 5 7021-8 ####[facility] LABCLIA [id number] [place] [address] Hematocrit (Bld) [Volume fraction] 41.2 % Normal 36.0-46.0 [facility] Comment on above: Order Comment: Speci men Type: BLOOD SPECIMENOrdering Facility: [facility] Address: [address] [place] [address] Performed By: #### 5 7021-8 ####[facility] LABCLIA [id number] [place] [address] Hemoglobin (Bld) [Mass/Vol] 13.8 g/dL Normal 11.5-15.5 [facility] Comment on above: Order Comment: Speci men Type: BLOOD SPECIMENOrdering Facility: [facility] Address: [address] [place] [address] Performed By: #### 5 7021-8 ####[facility] LABCLIA [id number] [place] [address] Immature granulocytes (Bld) [#/Vol] 0.15 10*3/uL High <0.10 [facility] Comment on above: Order Comment: Speci men Type: BLOOD SPECIMENOrdering Facility: [facility] Address: [address] [place] [address] Performed By: #### 5 7021-8 ####[facility] LABCLIA [id number] [place] [address] Immature granulocytes/100 WBC (Bld) 0.9 % Normal [facility] Comment on above: Order Comment: Speci men Type: BLOOD SPECIMENOrdering Facility: [facility] Address: [address] [place] [address] Performed By: #### 5 7021-8 ####[facility] LABIA [id number] [place] [address] Lymphocytes (Bld) [#/Vol] 1.62 10*3/uL Normal 1.00-4.00 [facility] Comment on above: Order Comment: Speci men Type: BLOOD SPECIMENOrdering Facility: [facility] Address: [address] [place] [address] Performed By: #### 5 7021-8 ####[facility] LABCLIA [id number] [place] [address] Lymphocytes/100 WBC (Bld) 9.8 % Normal [facility] Comment on above: Order Comment: Speci men Type: BLOOD SPECIMENOrdering Facility: [facility] Address: [address] [place] [address] Performed By: #### 5 7021-8 ####[facility] LABIA [id number] [place] [address] MCH (RBC) [Entitic mass] 30.5 pg Normal 26.0-34.0 [facility] Comment on above: Order Comment: Speci men Type: BLOOD SPECIMENOrdering Facility: [facility] Address: [address] [place] [address] Performed By: #### 5 7021-8 ####[facility] LABCLIA [id number] [place] [address] MCHC (RBC) [Mass/Vol] 33.5 g/dL Normal 30.5-36.0 [facility] Comment on above: Order Comment: Speci men Type: BLOOD SPECIMENOrdering Facility: [facility] Address: [address] [place] [address] Performed By: #### 5 7021-8 ####[facility] LABCLIA [id number] [place] [address] MCV (RBC) [Entitic vol] 91.2 fL Normal 80.0-100.0 [facility] Comment on above: Order Comment: Speci men Type: BLOOD SPECIMENOrdering Facility: [facility] Address: [address] [place] [address] Performed By: #### 5 7021-8 ####[facility] LABCLIA [id number] [place] [address] Monocytes (Bld) [#/Vol] 0.76 10*3/uL Normal <0.87 [facility] Comment on above: Order Comment: Speci men Type: BLOOD SPECIMENOrdering Facility: [facility] Address: [address] [place] [address] Performed By: #### 5 7021-8 ####[facility] LABCLIA [id number] [place] [address] Monocytes/100 WBC (Bld) 4.6 % Normal [facility] Comment on above: Order Comment: Speci men Type: BLOOD SPECIMENOrdering Facility: [facility] Address: [address] [place] [address] Performed By: #### 5 7021-8 ####[facility] LABCLIA [id number] [place] [address] Neutrophils (Bld) [#/Vol] 13.99 10*3/uL High 1.45-7.50 [facility] Comment on above: Order Comment: Speci men Type: BLOOD SPECIMENOrdering Facility: [facility] Address: [address] [place] [address] Performed By: #### 5 7021-8 ####[facility] LABCLIA [id number] [place] [address] Neutrophils/100 WBC (Bld) 84.3 % Normal [facility] Comment on above: Order Comment: Speci men Type: BLOOD SPECIMENOrdering Facility: [facility] Address: [address] [place] [address] Performed By: #### 5 7021-8 ####[facility] LABCLIA [id number] [place] [address] Nucleated RBC (Bld) [#/Vol] 10*3/uL Normal <0.01 [facility] Comment on above: Order Comment: Speci men Type: BLOOD SPECIMENOrdering Facility: [facility] Address: [address] [place] [address] Performed By: #### 5 7021-8 ####[facility] LABCLIA [id number] [place] [address] Nucleated RBC/100 WBC (Bld) [Ratio] 0.0 /100 WBC Normal [facility] Comment on above: Order Comment: Speci men Type: BLOOD SPECIMENOrdering Facility: [facility] Address: [address] [place] [address] Performed By: #### 5 7021-8 ####[facility] LABCLIA [id number] [place] [address] Platelet mean volume (Bld) [Entitic vol] 9.9 fL Normal 9.0-12.7 [facility] Comment on above: Order Comment: Speci men Type: BLOOD SPECIMENOrdering Facility: [facility] Address: [address] [place] [address] Performed By: #### 5 7021-8 ####[facility] LABCLIA [id number] [place] [address] Platelets (Bld) [#/Vol] 332 10*3/uL Normal 150-400 [facility] Comment on above: Order Comment: Speci men Type: BLOOD SPECIMENOrdering Facility: [facility] Address: [address] [place] [address] Performed By: #### 5 7021-8 ####[facility] LABCLIA [id number] [place] [address] RBC (Bld) [#/Vol] 4.52 10*6/uL Normal 3.90-5.20 [facility] Comment on above: Order Comment: Speci men Type: BLOOD SPECIMENOrdering Facility: [facility] Address: [address] [place] [address] Performed By: #### 5 7021-8 ####[facility] LABIA [id number] [place] [address] WBC (Bld) [#/Vol] 16.58 10*3/uL High 3.70-11.00 [facility] Comment on above: Order Comment: Speci men Type: BLOOD SPECIMENOrdering Facility: [facility] Address: [address] [place] [address] Performed By: #### 5 7021-8 ####[facility] LABCLIA [id number] [place] [address] CNNURSEon 02-21-2024 CNNURSE Normal [facility] Comprehensive metabolic 2000 panelon 02-21-2024 Albumin [Mass/Vol] 4.3 g/dL Normal 3.9-4.9 [facility] Comment on above: Order Comment: Speci men Type: BLOOD SPECIMENOrdering Facility: [facility] Address: [address] [place] [address] Performed By: #### 2 4323-8 ####[facility] LABCLIA [id number] [place] [address] ALP [Catalytic activity/Vol] 72 U/L Normal 34-123 [facility] Comment on above: Order Comment: Speci men Type: BLOOD SPECIMENOrdering Facility: [facility] Address: [address] [place] [address] Performed By: #### 2 4323-8 ####[facility] LABCLIA [id number] [place] [address] ALT [Catalytic activity/Vol] 22 U/L Normal 7-38 [facility] Comment on above: Order Comment: Speci men Type: BLOOD SPECIMENOrdering Facility: [facility] Address: [address] [place] [address] Performed By: #### 2 4323-8 ####[facility] LABCLIA [id number] [place] [address] Anion gap [Moles/Vol] 13 mmol/L Normal 8-15 [facility] Comment on above: Order Comment: Speci men Type: BLOOD SPECIMENOrdering Facility: [facility] Address: [address] [place] [address] Performed By: #### 2 4323-8 ####[facility] LABCLIA [id number] [place] [address] AST [Catalytic activity/Vol] 9 U/L Low 13-35 [facility] Comment on above: Order Comment: Speci men Type: BLOOD SPECIMENOrdering Facility: [facility] Address: [address] [place] [address] Performed By: #### 2 4323-8 ####[facility] LABCLIA [id number] [place] [address] Bilirubin [Mass/Vol] 0.2 mg/dL Normal 0.2-1.3 [facility] Comment on above: Order Comment: Speci men Type: BLOOD SPECIMENOrdering Facility: [facility] Address: [address] [place] [address] Performed By: #### 2 4323-8 ####[facility] LABCLIA [id number] [place] [address] Calcium [Mass/Vol] 9.5 mg/dL Normal 8.5-10.2 [facility] Comment on above: Order Comment: Speci men Type: BLOOD SPECIMENOrdering Facility: [facility] Address: [address] [place] [address] Performed By: #### 2 4323-8 ####[facility] LABCLIA [id number] [place] [address] Chloride [Moles/Vol] 107 mmol/L Normal 98-107 [facility] Comment on above: Order Comment: Speci men Type: BLOOD SPECIMENOrdering Facility: [facility] Address: [address] [place] [address] Performed By: #### 2 4323-8 ####[facility] LABCLIA [id number] [place] [address] CO2 [Moles/Vol] 20 mmol/L Low 22-30 [facility] Comment on above: Order Comment: Speci men Type: BLOOD SPECIMENOrdering Facility: [facility] Address: [address] [place] [address] Performed By: #### 2 4323-8 ####[facility] LABCLIA [id number] [place] [address] Creatinine [Mass/Vol] 0.65 mg/dL Normal 0.58-0.96 [facility] Comment on above: Order Comment: Speci men Type: BLOOD SPECIMENOrdering Facility: [facility] Address: [address] [place] [address] Performed By: #### 2 4323-8 ####[facility] LABCLIA [id number] [place] [address] Creatinine and Glomerular filtration rate.predicted panel (S/P/Bld) 112 mL/min/1.73m??? Normal >=60 [facility] Comment on above: Order Comment: Speci men Type: BLOOD SPECIMENOrdering Facility: [facility] Address: [address] [place] [address] Result Comment: Erin mated Glomerular Filtration Rate [...] actual GFR. Performed By: #### 2 4323-8 ####[facility] LABCLIA [id number] [place] [address] Glucose [Mass/Vol] 215 mg/dL High 74-99 [facility] Comment on above: Order Comment: Semaj cortés Type: BLOOD SPECIMENOrdering Facility: [facility] Address: [address] [place] [address] Result Comment: The [place] Diabetes Association (ADA) provides guidance for cutoff [...] Standards of Medical Care in Diabetes 2016, [place] [employer]. Diabetes Care. 2016.39(Suppl 1). Performed By: #### 2 4323-8 ####[facility] LABCLIA [id number] [place] [address] Potassium [Moles/Vol] 4.2 mmol/L Normal 3.7-5.1 [facility] Comment on above: Order Comment: Semaj cortés Type: BLOOD SPECIMENOrdering Facility: [facility] Address: [address] [id number] Performed By: #### 2 4323-8 ####[facility] LABCLIA [id number] [place] [address] Protein [Mass/Vol] 7.2 g/dL Normal 6.3-8.0 [facility] Comment on above: Order Comment: Speci men Type: BLOOD SPECIMENOrdering Facility: [facility] Address: [address] [place] [address] Performed By: #### 2 4323-8 ####[facility] LABCLIA [id number] [place] [address] Sodium [Moles/Vol] 140 mmol/L Normal 136-144 [facility] Comment on above: Order Comment: Speci men Type: BLOOD SPECIMENOrdering Facility: [facility] Address: [address] [place] [address] Performed By: #### 2 4323-8 ####[facility] LABCLIA [id number] [place] [address] Urea nitrogen [Mass/Vol] 15 mg/dL Normal 7-21 [facility] Comment on above: Order Comment: Speci men Type: BLOOD SPECIMENOrdering Facility: [facility] Address: [address] [place] [address] Performed By: #### 2 4323-8 ####[facility] LABCLIA [id number] [place] [address] ESR Westergren method (Bld) [Velocity]on 02-21-2024 ESR (Bld) [Velocity] 33 mm/h High 0-20 [facility] Comment on above: Order Comment: Speci men Type: BLOOD SPECIMENOrdering Facility: [facility] Address: [address] [place] [address] Performed By: #### 4 537-7 ####[facility] LABCLIA [id number] [facility] [id number] [address] [place] Ferritin SerPl-mCncon 2023 Ferritin [Mass/Vol] 36.3 ng/mL Normal 14.7-205.1 [facility] Comment on above: Order Comment: Speci men Type: BLOOD SPECIMENOrdering Facility: [facility] Address: [address] [place] [address] Performed By: #### 5 0190-8, 6-4, 9, 2283-12 ####[facility] LABCLIA [id number] [place] [address] [place] Folate SerPl-ncon 02-21-20 Folate [Mass/Vol] 18.8 ng/mL Normal >4.7 [facility] Comment on above: Order Comment: Speci men Type: BLOOD SPECIMENOrdering Facility: [facility] Address: [address] [place] [address] Performed By: #### 5 0190-8, 4, 9, 2283-12 ####[facility] LABCLIA [id number] [place] [address] [place] Iron and Iron binding capaci ty panel 02-21-2024 Iron [Mass/Vol] 74 ug/dL Normal 41-186 [facility] Comment on above: Order Comment: Speci men Type: BLOOD SPECIMENOrdering Facility: [facility] Address: [address] [place] [address] Performed By: #### 5 0190-8, 2275-4, 2132-01, 2283-12 ####[facility] LABCLIA [id number] [place] [address] [place] Iron binding capacity [Mass/Vol] 422 ug/dL High 232-386 [facility] Comment on above: Order Comment: Speci men Type: BLOOD SPECIMENOrdering Facility: [facility] Address: [address] [place] [address] Performed By: #### 5 0190-8, 2275-4, 2132-01, 2283-12 ####[facility] LABCLIA [id number] [address] [address] [place] Iron/TIBC [Molar ratio] 17.5 % Normal 15.0-57.0 [facility] Comment on above: Order Comment: Speci men Type: BLOOD SPECIMENOrdering Facility: [facility] Address: [address] [place], [place] [address] Performed By: #### 5 0190-8, 2275-4, 9, 2283-12 ####[facility] LABCLIA [id number] [address] [address] [place] Vit B12 SerPl-ncon 024 Cobalamin (Vitamin B12) [Mass/Vol] 560 pg/mL Normal 232-1245 [facility] Comment on above: Order Comment: Speci men Type: BLOOD SPECIMENOrdering Facility: [facility] Address: [address] [place] [address] Performed By: #### 5 0190-8, 2275-4, 2132-01, 2283-12 ####[facility] LABCLIA [id number] [address] [id number] [place] CNPNon 02-18-2024 CNPN Normal [facility] HCG ( test) IA.rapi d Ql (U)Ordered By: Adolfo Kang on 02-16-2024 HCG ( test) Ql (U) Negative [facility] HCG,Urineon 02-16-2024 Beta HCG ( test) Ql (U) Negative Normal [facility] Comment on above: Result Comment: PERF ORMED BY: [facility] [address] [address] PATHOLOGIST MUTUEL CLERK OFE CANNON M.D. Performed By: #### U HCG #### [facility] [address] [id number] [facility] CNPNon 02-15-2024 CNPN Normal [facility] CNNURSEon 01-25-2024 CNNURSE Normal [facility] CNPNon 12-30-2023 CNPN Normal [facility] 25(OH)D3 SerPl-mCnmon 2023 25-hydroxyvitamin D3 [Mass/Vol] 31.0 ng/mL Normal 31.0-80.0 [facility] Comment on above: Order Comment: Speci men Type: BLOOD SPECIMENOrdering Facility: [facility] Address: [address] [place] [address] Result Comment: Clas sification of 25 [place] Vitamin D status:Deficiency/Insufficiency: < or = 30 ng/ml.Sufficiency/Optimal Levels: 31-80 ng/mLToxicity: > 100 ng/mL.Test performed by chemiluminescent immunoassay. Performed By: #### 1 989-3 ####[facility] LABCLIA [id number] [address] OF [facility] CBC panel Auto (Bld)on 12-26 Erythrocyte distribution width (RBC) [Ratio] 14.6 % Normal 11.5-15.0 [facility] Comment on above: Order Comment: Speci men Type: BLOOD SPECIMENOrdering Facility: [facility] Address: [address] [place] [address] Performed By: #### 5 8410-2 ####[facility] LABCLIA [id number] [place] [address] Hematocrit (Bld) [Volume fraction] 39.6 % Normal 36.0-46.0 [facility] Comment on above: Order Comment: Speci men Type: BLOOD SPECIMENOrdering Facility: [facility] Address: [address] [place] [address] Performed By: #### 5 8410-2 ####[facility] LABCLIA [id number] [place] [address] Hemoglobin (Bld) [Mass/Vol] 13.0 g/dL Normal 11.5-15.5 [facility] Comment on above: Order Comment: Speci men Type: BLOOD SPECIMENOrdering Facility: [facility] Address: [address] [place] [address] Performed By: #### 5 8410-2 ####[facility] LABCLIA [id number] [place] [address] MCH (RBC) [Entitic mass] 30.3 pg Normal 26.0-34.0 [facility] Comment on above: Order Comment: Speci men Type: BLOOD SPECIMENOrdering Facility: [facility] Address: [address] [place] [address] Performed By: #### 5 8410-2 ####[facility] LABCLIA [id number] [place] [address] MCHC (RBC) [Mass/Vol] 32.8 g/dL Normal 30.5-36.0 [facility] Comment on above: Order Comment: Speci men Type: BLOOD SPECIMENOrdering Facility: [facility] Address: [address] [place] [address] Performed By: #### 5 8410-2 ####[facility] LABIA [id number] [place] [address] MCV (RBC) [Entitic vol] 92.3 fL Normal 80.0-100.0 [facility] Comment on above: Order Comment: Speci men Type: BLOOD SPECIMENOrdering Facility: [facility] Address: [address] [place] [address] Performed By: #### 5 8410-2 ####[facility] LABCLIA [id number] [place] [address] Nucleated RBC (Bld) [#/Vol] 10*3/uL Normal <0.01 [facility] Comment on above: Order Comment: Speci men Type: BLOOD SPECIMENOrdering Facility: [facility] Address: [address] [place] [address] Performed By: #### 5 8410-2 ####[facility] LABIA [id number] [place] [address] Platelet mean volume (Bld) [Entitic vol] 9.8 fL Normal 9.0-12.7 [facility] Comment on above: Order Comment: Speci men Type: BLOOD SPECIMENOrdering Facility: [facility] Address: [address] [place] [address] Performed By: #### 5 8410-2 ####[facility] LABCLIA [id number] [place] [address] Platelets (Bld) [#/Vol] 309 10*3/uL Normal 150-400 [facility] Comment on above: Order Comment: Speci men Type: BLOOD SPECIMENOrdering Facility: [facility] Address: [address] [place] [address] Performed By: #### 5 8410-2 ####[facility] LABCLIA [id number] [place] [address] RBC (Bld) [#/Vol] 4.29 10*6/uL Normal 3.90-5.20 [facility] Comment on above: Order Comment: Speci men Type: BLOOD SPECIMENOrdering Facility: [facility] Address: [address] [place] [address] Performed By: #### 5 8410-2 ####[facility] LABIA [id number] [place] [address] WBC (Bld) [#/Vol] 14.93 10*3/uL High 3.70-11.00 [facility] Comment on above: Order Comment: Speci men Type: BLOOD SPECIMENOrdering Facility: [facility] Address: [address] [place] [address] Performed By: #### 5 8410-2 ####[facility] LABIA [id number] [place] [address] CNNURSEon 12-27-2023 CNNURSE Normal [facility] CNOVSPon 12-27-2023 CNOVSP Normal [facility] CNPNon 12-27-2023 CNPN Normal [facility] CRP SerPl-mCncon 12-27-2023 CRP [Mass/Vol] mg/L Normal <0.9 [facility] Comment on above: Order Comment: Speci men Type: BLOOD SPECIMENOrdering Facility: [facility] Address: [address] [place] [address] Performed By: #### 1 988-5 ####[facility] LABCLIA [id number] JERAD WOOLSTOCKDESK [address] [address] [facility] Comprehensive metabolic 2000 panelon 12-27-2023 Albumin [Mass/Vol] 4.2 g/dL Normal 3.9-4.9 [facility] Comment on above: Order Comment: Speci men Type: BLOOD SPECIMENOrdering Facility: [facility] Address: [address] [place] [address] Performed By: #### 2 4323-8 ####[facility] LABCLIA [id number] [place] [address] ALP [Catalytic activity/Vol] 77 U/L Normal 34-123 [facility] Comment on above: Order Comment: Speci men Type: BLOOD SPECIMENOrdering Facility: [facility] Address: [address] [place] [address] Performed By: #### 2 4323-8 ####[facility] LABCLIA [id number] [place] [address] ALT [Catalytic activity/Vol] 23 U/L Normal 7-38 [facility] Comment on above: Order Comment: Speci men Type: BLOOD SPECIMENOrdering Facility: [facility] Address: [address] [place] [address] Performed By: #### 2 4323-8 ####[facility] LABCLIA [id number] [place] [address] Anion gap [Moles/Vol] 14 mmol/L Normal 8-15 [facility] Comment on above: Order Comment: Speci men Type: BLOOD SPECIMENOrdering Facility: [facility] Address: [address] [place] [address] Performed By: #### 2 4323-8 ####[facility] LABCLIA [id number] [place] [address] AST [Catalytic activity/Vol] 13 U/L Normal 13-35 [facility] Comment on above: Order Comment: Speci men Type: BLOOD SPECIMENOrdering Facility: [facility] Address: [address] [place] [address] Performed By: #### 2 4323-8 ####[facility] LABCLIA [id number] [place] [address] Bilirubin [Mass/Vol] mg/dL Low 0.2-1.3 [facility] Comment on above: Order Comment: Speci men Type: BLOOD SPECIMENOrdering Facility: [facility] Address: [address] [place] [address] Performed By: #### 2 4323-8 ####[facility] LABCLIA [id number] [place] [address] Calcium [Mass/Vol] 10.0 mg/dL Normal 8.5-10.2 [facility] Comment on above: Order Comment: Speci men Type: BLOOD SPECIMENOrdering Facility: [facility] Address: [address] [place] [address] Performed By: #### 2 4323-8 ####[facility] LABCLIA [id number] [place] [address] Chloride [Moles/Vol] 107 mmol/L Normal 98-107 [facility] Comment on above: Order Comment: Speci men Type: BLOOD SPECIMENOrdering Facility: [facility] Address: [address] [place], [place] [address] Performed By: #### 2 4323-8 ####[facility] LABCLIA [id number] [place] [address] CO2 [Moles/Vol] 23 mmol/L Normal 22-30 [facility] Comment on above: Order Comment: Speci men Type: BLOOD SPECIMENOrdering Facility: [facility] Address: [address] [place] [address] Performed By: #### 2 4323-8 ####[facility] LABCLIA [id number] [place] [address] Creatinine [Mass/Vol] 0.70 mg/dL Normal 0.58-0.96 [facility] Comment on above: Order Comment: Speci men Type: BLOOD SPECIMENOrdering Facility: [facility] Address: [address] [place] [address] Performed By: #### 2 4323-8 ####[facility] LABCLIA [id number] [place] [address] Creatinine and Glomerular filtration rate.predicted panel (S/P/Bld) 110 mL/min/1.73m??? Normal >=60 [facility] Comment on above: Order Comment: Speci men Type: BLOOD SPECIMENOrdering Facility: [facility] Address: [address] [place] [address] Result Comment: Erin mated Glomerular Filtration Rate [...] actual GFR. Performed By: #### 2 4323-8 ####[facility] LABCLIA [id number] [place] [address] Glucose [Mass/Vol] 120 mg/dL High 74-99 [facility] Comment on above: Order Comment: Speci men Type: BLOOD SPECIMENOrdering Facility: [facility] Address: [address] [place] [address] Result Comment: The [place] Diabetes [employer] (ADA) provides guidance for cutoff [...] Standards of Medical Care in Diabetes 2016, [place] [employer]. Diabetes Care. 2016.39(Suppl 1). Performed By: #### 2 4323-8 ####[facility] LABCLIA [id number] [place] [address] Potassium [Moles/Vol] 4.1 mmol/L Normal 3.7-5.1 [facility] Comment on above: Order Comment: Speci men Type: BLOOD SPECIMENOrdering Facility: [facility] Address: [address] [place] [address] Performed By: #### 2 4323-8 ####[facility] LABCLIA [id number] [place] [address] Protein [Mass/Vol] 7.1 g/dL Normal 6.3-8.0 [facility] Comment on above: Order Comment: Speci men Type: BLOOD SPECIMENOrdering Facility: [facility] Address: [address] [place] [address] Performed By: #### 2 4323-8 ####[facility] LABCLIA [id number] [place] [address] Sodium [Moles/Vol] 144 mmol/L Normal 136-144 [facility] Comment on above: Order Comment: Speci men Type: BLOOD SPECIMENOrdering Facility: [facility] Address: [address] [place] [address] Performed By: #### 2 4323-8 ####[facility] LABCLIA [id number] [place] [address] Urea nitrogen [Mass/Vol] 13 mg/dL Normal 7-21 [facility] Comment on above: Order Comment: Speci men Type: BLOOD SPECIMENOrdering Facility: [facility] Address: [address] [place] [address] Performed By: #### 2 4323-8 ####[facility] LABCLIA [id number] [place] [address] ESR Westergren method (Bld) [Velocity]on 12-27-2023 ESR (Bld) [Velocity] 31 mm/h High 0-20 [facility] Comment on above: Order Comment: Speci men Type: BLOOD SPECIMENOrdering Facility: [facility] Address: [address] [place] [address] Performed By: #### 4 537-7 ####[facility] LABCLIA [id number] [facility] [id number] [place] MR LUMBAR SPINE WO [...] Normal Not Available CNNURSEon 11-29-2023 CNNURSE Normal [facility] CBC W Auto Differential pane l (Bld)on 11-24-2023 Basophils (Bld) [#/Vol] 0.06 10*3/uL Normal <0.11 [facility] Comment on above: Order Comment: Speci men Type: BLOOD SPECIMENOrdering Facility: [facility] Address: [address] [place] [address] Performed By: #### 5 7021-8 ####[facility] LABCLIA [id number] [place] [address] Basophils/100 WBC (Bld) 0.6 % Normal [facility] Comment on above: Order Comment: Speci men Type: BLOOD SPECIMENOrdering Facility: [facility] Address: [address] [place] [address] Performed By: #### 5 7021-8 ####[facility] LABCLIA [id number] [place] [address] Differential cell count method Nom (Bld) Auto Normal [facility] Comment on above: Order Comment: Speci men Type: BLOOD SPECIMENOrdering Facility: [facility] Address: [address] [place] [address] Performed By: #### 5 7021-8 ####[facility] LABCLIA [id number] [place] [address] Eosinophils (Bld) [#/Vol] 0.04 10*3/uL Normal <0.46 [facility] Comment on above: Order Comment: Speci men Type: BLOOD SPECIMENOrdering Facility: [facility] Address: [address] [place] [address] Performed By: #### 5 7021-8 ####[facility] LABCLIA [id number] [place] [address] Eosinophils/100 WBC (Bld) 0.4 % Normal [facility] Comment on above: Order Comment: Speci men Type: BLOOD SPECIMENOrdering Facility: [facility] Address: [address] [place] [address] Performed By: #### 5 7021-8 ####[facility] LABCLIA [id number] [place] [address] Erythrocyte distribution width (RBC) [Ratio] 14.8 % Normal 11.5-15.0 [facility] Comment on above: Order Comment: Speci men Type: BLOOD SPECIMENOrdering Facility: [facility] Address: [address] [place] [address] Performed By: #### 5 7021-8 ####[facility] LABCLIA [id number] [place] [address] Hematocrit (Bld) [Volume fraction] 40.6 % Normal 36.0-46.0 [facility] Comment on above: Order Comment: Speci men Type: BLOOD SPECIMENOrdering Facility: [facility] Address: [address] [place] [address] Performed By: #### 5 7021-8 ####[facility] LABCLIA [id number] [place] [address] Hemoglobin (Bld) [Mass/Vol] 13.0 g/dL Normal 11.5-15.5 [facility] Comment on above: Order Comment: Speci men Type: BLOOD SPECIMENOrdering Facility: [facility] Address: [address] [place] [address] Performed By: #### 5 7021-8 ####[facility] LABCLIA [id number] [place] [address] Immature granulocytes (Bld) [#/Vol] 0.05 10*3/uL Normal <0.10 [facility] Comment on above: Order Comment: Speci men Type: BLOOD SPECIMENOrdering Facility: [facility] Address: [address] [place] [address] Performed By: #### 5 7021-8 ####[facility] LABCLIA [id number] [place] [address] Immature granulocytes/100 WBC (Bld) 0.5 % Normal [facility] Comment on above: Order Comment: Speci men Type: BLOOD SPECIMENOrdering Facility: [facility] Address: [address] [place] [address] Performed By: #### 5 7021-8 ####[facility] LABCLIA [id number] [place] [address] Lymphocytes (Bld) [#/Vol] 1.87 10*3/uL Normal 1.00-4.00 [facility] Comment on above: Order Comment: Speci men Type: BLOOD SPECIMENOrdering Facility: [facility] Address: [address] [place] [address] Performed By: #### 5 7021-8 ####[facility] LABCLIA [id number] [place] [address] Lymphocytes/100 WBC (Bld) 17.5 % Normal [facility] Comment on above: Order Comment: Speci men Type: BLOOD SPECIMENOrdering Facility: [facility] Address: [address] [place] [address] Performed By: #### 5 7021-8 ####[facility] LABCLIA [id number] [place] [address] MCH (RBC) [Entitic mass] 29.3 pg Normal 26.0-34.0 [facility] Comment on above: Order Comment: Speci men Type: BLOOD SPECIMENOrdering Facility: [facility] Address: [address] [place] [address] Performed By: #### 5 7021-8 ####[facility] LABCLIA [id number] [place] [address] MCHC (RBC) [Mass/Vol] 32.0 g/dL Normal 30.5-36.0 [facility] Comment on above: Order Comment: Speci men Type: BLOOD SPECIMENOrdering Facility: [facility] Address: [address] [place] [address] Performed By: #### 5 7021-8 ####[facility] LABCLIA [id number] [place] [address] MCV (RBC) [Entitic vol] 91.4 fL Normal 80.0-100.0 [facility] Comment on above: Order Comment: Speci men Type: BLOOD SPECIMENOrdering Facility: [facility] Address: [address] [place] [address] Performed By: #### 5 7021-8 ####[facility] LABCLIA [id number] [place] [address] Monocytes (Bld) [#/Vol] 0.39 10*3/uL Normal <0.87 [facility] Comment on above: Order Comment: Speci men Type: BLOOD SPECIMENOrdering Facility: [facility] Address: [address] [place] [address] Performed By: #### 5 7021-8 ####[facility] LABCLIA [id number] [place] [address] Monocytes/100 WBC (Bld) 3.6 % Normal [facility] Comment on above: Order Comment: Speci men Type: BLOOD SPECIMENOrdering Facility: [facility] Address: [address] [place] [address] Performed By: #### 5 7021-8 ####[facility] LABCLIA [id number] [place] [address] Neutrophils (Bld) [#/Vol] 8.28 10*3/uL High 1.45-7.50 [facility] Comment on above: Order Comment: Speci men Type: BLOOD SPECIMENOrdering Facility: [facility] Address: [address] [place] [address] Performed By: #### 5 7021-8 ####[facility] LABCLIA [id number] [place] [address] Neutrophils/100 WBC (Bld) 77.4 % Normal [facility] Comment on above: Order Comment: Speci men Type: BLOOD SPECIMENOrdering Facility: [facility] Address: [address] [place] [address] Performed By: #### 5 7021-8 ####[facility] LABCLIA [id number] [place] [address] Nucleated RBC (Bld) [#/Vol] 10*3/uL Normal <0.01 [facility] Comment on above: Order Comment: Speci men Type: BLOOD SPECIMENOrdering Facility: [facility] Address: [address] [place] [address] Performed By: #### 5 7021-8 ####[facility] LABCLIA [id number] [place] [address] Nucleated RBC/100 WBC (Bld) [Ratio] 0.0 /100 WBC Normal [facility] Comment on above: Order Comment: Speci men Type: BLOOD SPECIMENOrdering Facility: [facility] Address: [address] [place] [address] Performed By: #### 5 7021-8 ####[facility] LABCLIA [id number] [place] [address] Platelet mean volume (Bld) [Entitic vol] 9.6 fL Normal 9.0-12.7 [facility] Comment on above: Order Comment: Speci men Type: BLOOD SPECIMENOrdering Facility: [facility] Address: [address] [place] [address] Performed By: #### 5 7021-8 ####[facility] LABCLIA [id number] [place] [address] Platelets (Bld) [#/Vol] 271 10*3/uL Normal 150-400 [facility] Comment on above: Order Comment: Speci men Type: BLOOD SPECIMENOrdering Facility: [facility] Address: [address] [place] [address] Performed By: #### 5 7021-8 ####[facility] LABCLIA [id number] [place] [address] RBC (Bld) [#/Vol] 4.44 10*6/uL Normal 3.90-5.20 [facility] Comment on above: Order Comment: Speci men Type: BLOOD SPECIMENOrdering Facility: [facility] Address: [address] [place] [address] Performed By: #### 5 7021-8 ####[facility] LABCLIA [id number] [place] [address] WBC (Bld) [#/Vol] 10.69 10*3/uL Normal 3.70-11.00 [facility] Comment on above: Order Comment: Speci men Type: BLOOD SPECIMENOrdering Facility: [facility] Address: [address] [place] [address] Performed By: #### 5 7021-8 ####[facility] LABCLIA [id number] [place] [address] Comprehensive metabolic 2000 panelon 11-24-2023 Albumin [Mass/Vol] 4.1 g/dL Normal 3.9-4.9 [facility] Comment on above: Order Comment: Speci men Type: BLOOD SPECIMENOrdering Facility: [facility] Address: [address] [place] [address] Performed By: #### 2 4323-8 ####[facility] LABCLIA [id number] [place] [address] ALP [Catalytic activity/Vol] 69 U/L Normal 34-123 [facility] Comment on above: Order Comment: Speci men Type: BLOOD SPECIMENOrdering Facility: [facility] Address: [address] [place] [address] Performed By: #### 2 4323-8 ####[facility] LABCLIA [id number] [place] [address] ALT [Catalytic activity/Vol] 24 U/L Normal 7-38 [facility] Comment on above: Order Comment: Speci men Type: BLOOD SPECIMENOrdering Facility: [facility] Address: [address] [place] [address] Performed By: #### 2 4323-8 ####[facility] LABCLIA [id number] [place] [address] Anion gap [Moles/Vol] 9 mmol/L Normal 8-15 [facility] Comment on above: Order Comment: Speci men Type: BLOOD SPECIMENOrdering Facility: [facility] Address: [address] [place], [place] [address] Performed By: #### 2 4323-8 ####[facility] LABCLIA [id number] [place] [address] AST [Catalytic activity/Vol] 13 U/L Normal 13-35 [facility] Comment on above: Order Comment: Speci men Type: BLOOD SPECIMENOrdering Facility: [facility] Address: [address] [place] [address] Performed By: #### 2 4323-8 ####[facility] LABCLIA [id number] [place] [address] Bilirubin [Mass/Vol] 0.2 mg/dL Normal 0.2-1.3 [facility] Comment on above: Order Comment: Speci men Type: BLOOD SPECIMENOrdering Facility: [facility] Address: [address] [place] [address] Performed By: #### 2 4323-8 ####[facility] LABCLIA [id number] [place] [address] Calcium [Mass/Vol] 9.9 mg/dL Normal 8.5-10.2 [facility] Comment on above: Order Comment: Speci men Type: BLOOD SPECIMENOrdering Facility: [facility] Address: [address] [place] [address] Performed By: #### 2 4323-8 ####[facility] LABCLIA [id number] [place] [address] Chloride [Moles/Vol] 104 mmol/L Normal 98-107 [facility] Comment on above: Order Comment: Speci men Type: BLOOD SPECIMENOrdering Facility: [facility] Address: [address] [place] [address] Performed By: #### 2 4323-8 ####[facility] LABCLIA [id number] [place] [address] CO2 [Moles/Vol] 24 mmol/L Normal 22-30 [facility] Comment on above: Order Comment: Speci men Type: BLOOD SPECIMENOrdering Facility: [facility] Address: [address] [place] [address] Performed By: #### 2 4323-8 ####[facility] LABCLIA [id number] [place] [address] Creatinine [Mass/Vol] 0.74 mg/dL Normal 0.58-0.96 [facility] Comment on above: Order Comment: Speci men Type: BLOOD SPECIMENOrdering Facility: [facility] Address: [address] [place] [address] Performed By: #### 2 4323-8 ####[facility] LABCLIA [id number] [place] [address] Creatinine and Glomerular filtration rate.predicted panel (S/P/Bld) 103 mL/min/1.73m??? Normal >=60 [facility] Comment on above: Order Comment: Speci men Type: BLOOD SPECIMENOrdering Facility: [facility] Address: [address] [place] [address] Result Comment: Erin mated Glomerular Filtration Rate [...] actual GFR. Performed By: #### 2 4323-8 ####[facility] LABCLIA [id number] [place] [address] Glucose [Mass/Vol] 185 mg/dL High 74-99 [facility] Comment on above: Order Comment: Speci men Type: BLOOD SPECIMENOrdering Facility: [facility] Address: [address] [id number] Result Comment: The [place] [employer] (ADA) provides guidance for cutoff [...] Standards of Medical Care in Diabetes 2016, [place] [employer]. Diabetes Care. 2016.39(Suppl 1). Performed By: #### 2 4323-8 ####[facility] LABCLIA [id number] [place] [address] Potassium [Moles/Vol] 4.2 mmol/L Normal 3.7-5.1 [facility] Comment on above: Order Comment: Speci men Type: BLOOD SPECIMENOrdering Facility: [facility] Address: [address] [place] [address] Performed By: #### 2 4323-8 ####[facility] LABCLIA [id number] [place] [address] Protein [Mass/Vol] 7.1 g/dL Normal 6.3-8.0 [facility] Comment on above: Order Comment: Speci men Type: BLOOD SPECIMENOrdering Facility: [facility] Address: [address] [id number] Performed By: #### 2 4323-8 ####[facility] LABCLIA [id number] [place] [address] Sodium [Moles/Vol] 137 mmol/L Normal 136-144 [facility] Comment on above: Order Comment: Speci men Type: BLOOD SPECIMENOrdering Facility: [facility] Address: [address] [id number] Performed By: #### 2 4323-8 ####[facility] LABCLIA [id number] [place] [address] Urea nitrogen [Mass/Vol] 12 mg/dL Normal 7-21 [facility] Comment on above: Order Comment: Speci men Type: BLOOD SPECIMENOrdering Facility: [facility] Address: [address] [place] [address] Performed By: #### 2 4323-8 ####[facility] LABCLIA [id number] [place] [address] ESR Westergren method (Bld) [Velocity]on 11-24-2023 ESR (Bld) [Velocity] 32 mm/h High 0-20 [facility] Comment on above: Order Comment: Speci men Type: BLOOD SPECIMENOrdering Facility: [facility] Address: [address] [place] [address] Performed By: #### 4 537-7 ####[facility] [id number] [place] [address] [place] Ferritin SerPl-mCncon 2023 Ferritin [Mass/Vol] 31.5 ng/mL Normal 14.7-205.1 [facility] Comment on above: Order Comment: Speci men Type: BLOOD SPECIMENOrdering Facility: [facility] Address: [address] [place] [address] Performed By: #### 5 0190-8, 2132-9, 2276-4, 2284-8 ####[facility] [id number] [place] [id number] [place] Folate SerPl-mCncon 11-24-19 Folate [Mass/Vol] 3.0 ng/mL Low >4.7 [facility] Comment on above: Order Comment: Speci men Type: BLOOD SPECIMENOrdering Facility: [facility] Address: [address] [place] [address] Performed By: #### 5 0190-8, 2132-9, 2276-4, 2284-8 ####[facility] LABCLIA [id number] [place] [address] [place] IgA SerPl-mCncon 11-24-2023 IgA [Mass/Vol] 162 mg/dL Normal 70-400 [facility] Comment on above: Order Comment: Speci men Type: BLOOD SPECIMENOrdering Facility: [facility] Address: [address] [place] [address] Performed By: #### 2 458-8, 2465-3, 2472-9 ####[facility] LABCLIA [id number] [place] [address] [place] IgE SerPl-aCncon 11-24-2023 IgE Qn 5.8 kU/l Normal <114.0 [facility] Comment on above: Order Comment: Speci men Type: BLOOD SPECIMENOrdering Facility: [facility] Address: [address] [place] [address] Performed By: #### 1 9113-0 ####[facility] LABCLIA [id number] [place] [address] [place] IgG SerPl-mCncon 11-24-2023 IgG [Mass/Vol] 526 mg/dL Low 700-1600 [facility] Comment on above: Order Comment: Speci men Type: BLOOD SPECIMENOrdering Facility: [facility] Address: [address] [place] [address] Performed By: #### 2 458-8, 2465-3, 5832-9 ####[facility] LABCLIA [id number] [place] [address] [place] IgM SerPl-mCncon 11-24-2023 IgM [Mass/Vol] 389 mg/dL High 40-230 [facility] Comment on above: Order Comment: Speci men Type: BLOOD SPECIMENOrdering Facility: [facility] Address: [address] [place] [address] Performed By: #### 2 458-8, 2465-3, 2472-9 ####[facility] LABIA [id number] [place] [id number] [place] Iron and Iron binding capaci ty panelon 11-24-2023 Iron [Mass/Vol] 65 ug/dL Normal 41-186 [facility] Comment on above: Order Comment: Speci men Type: BLOOD SPECIMENOrdering Facility: [facility] Address: [address] [place] [address] Performed By: #### 5 0190-8, 2131-9, 6-4, 2283-8 ####[facility] [id number] [place] [address] [place] Iron binding capacity [Mass/Vol] 373 ug/dL Normal 232-386 [facility] Comment on above: Order Comment: Speci men Type: BLOOD SPECIMENOrdering Facility: [facility] Address: [address] [place] [address] Performed By: #### 5 0190-8, 2131-9, 6-4, 2283-8 ####[facility] [id number] [place] [address] [place] Iron/TIBC [Molar ratio] 17.4 % Normal 15.0-57.0 [facility] Comment on above: Order Comment: Speci men Type: BLOOD SPECIMENOrdering Facility: [facility] Address: [address] [place] [address] Performed By: #### 5 0190-8, 2131-9, 2275-4, 2283-8 ####[facility] LABIA [id number] [place] [address] [place] Vit B12 [facility]Pl[facility] 024 Cobalamin (Vitamin B12) [Mass/Vol] 633 pg/mL Normal 232-1245 [facility] Comment on above: Order Comment: Speci men Type: BLOOD SPECIMENOrdering Facility: [facility] Address: [address] [place] [address] Performed By: #### 5 0190-8, 2132-9, 2276-4, 2284-8 ####[facility] LABCLIA [id number] [id number] [id number] [place] CNNURSEon 10-27-2023 CNNURSE Normal [facility] ECG 12 Leadon 07-13-2023 ECG revealed normal sinus rhythm [facility] Work Phone: CBC AUTO DIFFon 09-24-2022 BASO # 0.1 103/ul Normal 0.0-0.1 [facility] Comment on above: Performed By: #### U AMIC #### [facility] [address] [address] [address] Manda York Basophils/100 WBC (Bld) 0.6 % Normal 0.2-2.0 [facility] Comment on above: Performed By: #### U AMIC #### [facility] [address] [address] [address] Manda York EO # 0.1 103/ul Normal 0.0-0.7 [facility] Comment on above: Performed By: #### U AMIC #### [facility] [address] [address] [address] Manda York Eosinophils/100 WBC (Bld) 0.6 % Critically low 0.9-7.0 [facility] Comment on above: Performed By: #### U AMIC #### [facility] [address] [address] [address] Manda York Erythrocyte distribution width (RBC) [Ratio] 14.6 % Normal 11.0-15.0 [facility] Comment on above: Performed By: #### U AMIC #### [facility] [address] [address] [address] Manda York Hematocrit (Bld) [Volume fraction] 43.4 % Normal 36.0-48.0 [facility] Comment on above: Performed By: #### U AMIC #### [facility] [address] [address] [address] Manda York Hemoglobin (Bld) [Mass/Vol] 13.7 g/dL Normal 12.0-16.0 [facility] Comment on above: Performed By: #### U AMIC #### [facility] [address] [address] [address] Manda York IG # 0.12 10e3/ul Critically high 0.00-0.03 [facility] Comment on above: Performed By: #### U AMIC #### [facility] [address] [place] [address] Dr. Manda York IG % 0.8 % Critically high 0.0-0.5 [facility] Comment on above: Performed By: #### U AMIC #### [facility] [address] [place] [address] Dr. Manda York LYMPH # 2.6 103/ul Normal 1.2-3.8 [facility] Comment on above: Performed By: #### U AMIC #### [facility] [address] [place] [address] Dr. Manda York Lymphocytes/100 WBC (Bld) 18.3 % Critically low 20.5-60.0 [facility] Comment on above: Performed By: #### U AMIC #### [facility] [address] [place] [address] Dr. Manda York MANUAL DIFF REQ NO Normal [facility] Comment on above: Performed By: #### U AMIC #### [facility] [address] [place] [address] Dr. Manda York MCH (RBC) [Entitic mass] 29.0 pg Normal 26.7-34.[address] [facility] Comment on above: Performed By: #### U AMIC #### [facility] [address] [place] [address] Dr. Manda York MCHC (RBC) [Mass/Vol] 31.6 g/dL Normal 29.9-35.[address] [facility] Comment on above: Performed By: #### U AMIC #### [facility] [address] [address] [address] Manda York MCV (RBC) [Entitic vol] 91.8 fL Normal 81.0-99.0 [facility] Comment on above: Performed By: #### U AMIC #### [facility] [address] [address] [address] Manda York MONO # 0.7 103/ul Normal 0.3-0.[address] [facility] Comment on above: Performed By: #### U AMIC #### [facility] [address] [address] [address] Manda York Monocytes/100 WBC (Bld) 5.1 % Normal 1.7-12.0 [facility] Comment on above: Performed By: #### U AMIC #### [facility] [address] [place] [address] Dr. Madna York NEUT # 10.6 103/ul Critically high 1.4-6.5 [facility] Comment on above: Performed By: #### U AMIC #### [facility] [address] [address] [address] Manda York Neutrophils/100 WBC (Bld) 74.6 % Normal 43.0-75.0 [facility] Comment on above: Performed By: #### U AMIC #### [facility] [address] [place] [address] Dr. Manda York Platelet mean volume (Bld) [Entitic vol] 9.4 fL Critically low 9.5-13.[address] [facility] Comment on above: Performed By: #### U AMIC #### [facility] [address] [place] [address] Dr. Manda York PLT 307 103/ul Normal 150-[address] [facility] Comment on above: Performed By: #### U AMIC #### [facility] [address] [address] [address] Manda York RBC 4.73 106/ul Normal 4.20-5.[address] [facility] Comment on above: Performed By: #### U AMIC #### [facility] [address] [address] [address] Manda York WBC 14.2 103/ul Critically high 4.0-11.0 [facility] Comment on above: Performed By: #### U AMIC #### [facility] [address] [address] [address] Manda York FREE T4on 09-24-2022 Free T4 [Mass/Vol] 1.31 ng/dL Normal 0.76-1.46 [facility] Comment on above: Performed By: #### F T4 #### [facility] [address] [place] [address] Dr. Manda York GLYCOHEMOGLOBIN A1Con 2022 ADA RECOMMENDATION SEE BELOW Normal [facility] Comment on above: Result Comment: ADA RECOMMENDED LIMIT 4.0 - 6.0 ADA THERAPEUTIC TARGET < 7.0 ACTION SUGGESTED > 7.0 Performed By: #### A 1C #### [facility] [address] [place] [address] Dr. Manda York Glucose [Mass/Vol] 120 mg/dL Normal [facility] Comment on above: Performed By: #### A 1C #### [facility] [address] [place] [address] Dr. Manda York HbA1c (Bld) [Mass fraction] 5.8 % Normal 4.5-6.2 [facility] Comment on above: Performed By: #### A 1C #### [facility] [address] [place] [address] Dr. Manda York PREG QUANT HCGon 09-24-2022 HCG QUANT <1 Normal [facility] Comment on above: Performed By: #### F T4 #### [facility] [address] [place] [address] Dr. Manda York HCG RANGE SEE BELOW Normal [facility] Comment on above: Result Comment: 5-50 0.2-1 WEEK 50-500 1-2 WEEKS 100-5,000 2-3 WEEKS 500-10,000 3-4 WEEKS 1,000-50,000 4-5 WEEKS 10,000-100,000 5-6 WEEKS 15,000-200,000 6-8 WEEKS 10,000-100,000 2-3 MONTHS Performed By: #### F T4 #### [facility] [address] [place] [address] Dr. Manda York PROTIMEon 09-24-2022 INR Coag (PPP) [Relative time] {INR} Normal [facility] Comment on above: Performed By: #### F T4 #### [facility] [address] [place] [address] Dr. Manda York INR GUIDELINES SEE BELOW Normal [facility] Comment on above: Result Comment: SHERRY RED INR: 2.0 - 3.0 CONDITIONS NOT LISTED BELOW 2.5 - 3.5 FOR PROSTHETIC HEART VALVE REPLACEMENT 2.5 - 3.5 RECURRENT THROMBOSIS Performed By: #### F T4 #### [facility] [address] [place] [address] Dr. Manda York PT Coag (PPP) [Time] 9.6 s Normal 9.0-11.6 [facility] Comment on above: Performed By: #### F T4 #### [facility] [address] [place] [address] Dr. Manda York PTTon 09-24-2022 aPTT Coag (Bld) [Time] 28.2 s Normal 22.3-36.2 [facility] Comment on above: Performed By: #### F T4 #### [facility] [address] [place] [address] Dr. Manda York TSHon 09-24-2022 TSH 0.300 uIU/mL Critically low 0.358-3.740 [facility] Comment on above: Performed By: #### F T4 #### [facility] [address] [place] [address] Dr. Manda York US PELVIS TRANSVAGon 023 [...] by: AURORA SHAIKH Date: 2022-09-24 17:50 Normal [facility] PAP ACOG PANEL 2: 30 to 65on 09-18-2022 . . Normal [facility] Comment on above: Result Comment: Perf ormed at: WB Performed By: #### F T4 #### [facility] [address] [place] [address] Dr. Manda York Age Gdln ACOG Testing 30-65 Normal [facility] Comment on above: Performed By: #### F T4 #### [facility] [address] [place] [address] Dr. Manda York DIAGNOSIS: Comment Normal [facility] Comment on above: Result Comment: NEGA TIVE FOR INTRAEPITHELIAL LESION OR MALIGNANCY. Performed at: WB Performed By: #### F T4 #### [facility] [address] [place] [address] Dr. Manda York HPV Aptima Negative Normal Negative [facility] Comment on above: Result Comment: This nucleic acid amplification test detects fourteen high-risk HPV types (16,18,31,33,35,39,45,51,52,56,58,59,66,68) without differentiation. Performed at: =G Performed By: #### F T4 #### [facility] [address] [address] [address] Manda York HPV Genotype Reflex Comment Normal [facility] Comment on above: Result Comment: Crit eria not met, HPV Genotype not performed. Performed at: WB Performed By: #### F T4 #### [facility] [address] [address] [address] Manda York Methodology: Comment Normal [facility] Comment on above: Result Comment: This liquid based ThinPrep(R) pap test was screened with the use of an image guided system. Performed at: WB Performed By: #### F T4 #### [facility] [address] [address] [address] Manda York Note: Comment Normal [facility] Comment on above: Result Comment: [...] By: #### F T4 #### [facility] [address] [address] [address] Manda York Performed by: Comment Normal [facility] Comment on above: Result Comment: Lorena Peters, Window Air Conditioner Installer (ASCP) Performed at: WB Performed By: #### F T4 #### [facility] [address] [address] [address] Manda York Specimen adequacy: Comment Normal [facility] Comment on above: Result Comment: Sati sfactory for evaluation. Endocervical and/or squamous metaplastic cells (endocervical component) are present. Performed at: WB Performed By: #### F T4 #### [facility] [address] [address] [address] Manda York Cytology Cervical or vaginal smear or scraping studyOrdered By: Hazel Torres on 09-10-2022 [facility] MG MAMM SCREEN 3D SELENE CADon 09-01-2022 MG MAMM SCREEN 3D SELENE CAD Patient: ARIADNA HALEY Exam Date: 09/01/2022 : 1980 Gender:F Ordering : DR MANUEL FERRIS . Admission #: [id number] Family : Order #: [id number] CLICK HERE TO VIEW EXAM RADIOLOGY REPORT PROCEDURE: MAMMOGRAM SCREENING 3D BILATERAL CAD COMPARISON: MG MAMM SCREEN 3D SELENE CAD, 12/05/2020. INDICATIONS: Screening mammography Calculator Name NCI Breast Cancer Risk Assessment Tool 5 Year Breast Cancer Risk 0.80% Lifetime Breast Cancer Risk 13.50% Personal Breast Cancer No Personal Ovarian Cancer No Treatments None Family Cancers Grandmother-paternal with breast cancer at age 67; Aunt-paternal with breast cancer at age 50; Father with stomach cancer at age 56. LOCATION: [facility] BREAST COMPOSITION: Scattered areas fibroglandular [...] M.D. on 09/02/2022 at 12:32 Normal [address] [facility] MRI KNEE RT WO CONon 11-09-2 022 [...] MANUEL GOMEZ Date: 2022-04-01 08:24 Normal [address] [facility] PNEUMOCOCCAL IGG ABS, 23 SER OTYPESon 03-21-2022 Pneumococcal Interpretation See Note [facility] S. pneumoniae 1 IgG (S) [Mass/Vol] 0.27 ug/mL [facility] S. pneumoniae 12 IgG (S) [Mass/Vol] 0.08 ug/mL [facility] S. pneumoniae 14 IgG (S) [Mass/Vol] 0.19 ug/mL [facility] S. pneumoniae 17 IgG (S) [Mass/Vol] 1.72 ug/mL [facility] S. pneumoniae 19 IgG (S) [Mass/Vol] 1.52 ug/mL [facility] S. pneumoniae 2 IgG (S) [Mass/Vol] 0.44 ug/mL [facility] S. pneumoniae 20 IgG (S) [Mass/Vol] 1.53 ug/mL [facility] S. pneumoniae 22 IgG (S) [Mass/Vol] 0.99 ug/mL [facility] S. pneumoniae 23 IgG (S) [Mass/Vol] 0.14 ug/mL [facility] S. pneumoniae 3 IgG (S) [Mass/Vol] 0.36 ug/mL [facility] S. pneumoniae 34 IgG (S) [Mass/Vol] 5.77 ug/mL [facility] S. pneumoniae 4 IgG (S) [Mass/Vol] 0.06 ug/mL [facility] S. pneumoniae 43 IgG (S) [Mass/Vol] 0.93 ug/mL [facility] S. pneumoniae 5 IgG (S) [Mass/Vol] 0.89 ug/mL [facility] S. pneumoniae 8 IgG (S) [Mass/Vol] 0.58 ug/mL [facility] S. pneumoniae 9 IgG (S) [Mass/Vol] 0.4 ug/mL [facility] S. pneumoniae Nicaraguan type 15B IgG (S) [Mass/Vol] 8.27 ug/mL [facility] S. pneumoniae [place]araguan type 18C IgG (S) [Mass/Vol] 0.39 ug/mL [facility] S. pneumoniae [place] type 19A IgG (S) [Mass/Vol] 17.72 ug/mL [facility] S. pneumoniae [place] type 33F IgG (S) [Mass/Vol] 3.04 ug/mL [facility] S. pneumoniae [place] type 6B IgG (S) [Mass/Vol] 0.82 ug/mL [facility] S. pneumoniae [place] type 7F IgG (S) [Mass/Vol] 0.34 ug/mL [facility] S. pneumoniae [place] type 9V IgG (S) [Mass/Vol] 0.78 ug/mL [facility] XR KNEE RT 4V or >on [...] by: KRISTINA GARRETT Date: 2022-03-21 16:47 Normal [facility] DIPHTHER/TETANUS ABon 2021 C. diphtheriae IgG Qn (S) 0.1 IU/mL [facility] C. tetani toxoid IgG IA Qn 1 IU/mL [facility] IGA BLDon 03-18-2022 IgA [Mass/Vol] 182 mg/dL 70 - 400 mg/dL [facility] IGE BLDon 03-18-2022 IgE Qn 12.3 kU/l <114.0 kU/l [facility] IGGon 03-18-2022 IgG [Mass/Vol] 618 mg/dL Low 700 - 1,600 mg/dL [facility] IGMon 03-18-2022 IgM [Mass/Vol] 514 mg/dL High 40 - 230 mg/dL [facility] Immunodeficiency panel FC (B ld)on 03-18-2022 CD3 cells (Bld) [#/Vol] 2841 cells/uL High 958 - 2,388 cells/uL [facility] CD3 cells/100 cells (Bld) 81 % 60 - 89 % [facility] CD3+CD4+ (T4 helper) cells (Bld) [#/Vol] 1621 cells/uL 533 - 1,674 cells/uL [facility] CD3+CD4+ (T4 helper) cells/100 cells (Bld) 46 % 34 - 61 % [facility] CD3+CD4+ (T4 helper) cells/CD3+CD8+ (T8 suppressor cells) cells (Bld) [# ratio] 1.55 % 1.10 - 3.25 [facility] CD3+CD8+ (T8 suppressor cells) cells (Bld) [#/Vol] 1049 cells/uL High 175 - 958 cells/uL [facility] CD3+CD8+ (T8 suppressor cells) cells/100 cells (Bld) 30 % 10 - 41 % [facility] CD3-CD16+CD56+ (Natural killer) cells (Bld) [#/Vol] 193 cells/uL 102 - 565 cells/uL [facility] CD3-CD16+CD56+ (Natural killer) cells/100 cells (Bld) 5 % 5 - 25 % [facility] CD3-CD19+ cells (Bld) [#/Vol] 475 cells/uL 75 - 660 cells/uL [facility] CD3-CD19+ cells/100 cells (Bld) 13 % 5 - 22 % [facility] CBC W Auto Differential pane l (Bld)on 03-17-2022 Basophils (Bld) [#/Vol] 0.07 10*3/uL <0.11 k/uL [facility] Basophils/100 WBC (Bld) 0.6 % [facility] Differential cell count method Nom (Bld) Auto [facility] Eosinophils (Bld) [#/Vol] 0.18 10*3/uL <0.46 k/uL [facility] Eosinophils/100 WBC (Bld) 1.6 % [facility] Erythrocyte distribution width (RBC) [Ratio] 14.6 % 11.5 - 15.0 % [facility] Hematocrit (Bld) [Volume fraction] 40.5 % 36.0 - 46.0 % [facility] Hemoglobin (Bld) [Mass/Vol] 13.0 g/dL 11.5 - 15.5 g/dL [facility] Immature granulocytes (Bld) [#/Vol] 0.06 10*3/uL <0.10 k/uL [facility] Immature granulocytes/100 WBC (Bld) 0.5 % [facility] Lymphocytes (Bld) [#/Vol] 2.97 10*3/uL 1.00 - 4.00 k/uL [facility] Lymphocytes/100 WBC (Bld) 26.9 % [facility] MCH (RBC) [Entitic mass] 28.4 pg 26.0 - 34.0 pg [facility] MCHC (RBC) [Mass/Vol] 32.1 g/dL 30.5 - 36.0 g/dL [facility] MCV (RBC) [Entitic vol] 88.4 fL 80.0 - 100.0 fL [facility] Monocytes (Bld) [#/Vol] 0.79 10*3/uL <0.87 k/uL [facility] Monocytes/100 WBC (Bld) 7.2 % [facility] Neutrophils (Bld) [#/Vol] 6.97 10*3/uL 1.45 - 7.50 k/uL [facility] Neutrophils/100 WBC (Bld) 63.2 % [facility] Nucleated RBC (Bld) [#/Vol] <0.01 k/uL [facility] Nucleated RBC/100 WBC (Bld) [Ratio] 0.0 /100 WBC [facility] Platelet mean volume (Bld) [Entitic vol] 9.9 fL 9.0 - 12.7 fL [facility] Platelets (Bld) [#/Vol] 314 10*3/uL 150 - 400 k/uL [facility] RBC (Bld) [#/Vol] 4.58 10*6/uL 3.90 - 5.2 0 m/uL [facility] WBC (Bld) [#/Vol] 11.04 10*3/uL High 3.70 - 11 .00 k/uL [facility] ECHOCARDIO M/2D COMPLETEon ECHOCARDIO M/2D COMPLETE Patient: ARIADNA HALEY Exam Date: 03/12/2022 : 1980 Gender:F Ordering : DR MANUEL FERRIS . Admission #: [id number] Family : Order #: [id number] CLICK HERE TO VIEW EXAM ECHOCARDIOGRAM REPORT [...] 03/16/2022 at 16:47 Normal [address] [facility] INSULINon 03-11-2022 Insulin 17.8 uIU/mL Normal 2.6-24.9 [facility] Comment on above: Performed By: #### C BC #### [facility] [address] [place] [address] Dr. Manda York CBC AUTO DIFFon 03-09-2022 BASO # 0.1 103/ul Normal 0.0-0.1 [facility] Comment on above: Performed By: #### C BC #### [facility] [address] [address] [address] Manda York Basophils/100 WBC (Bld) 0.4 % Normal 0.2-2.0 [facility] Comment on above: Performed By: #### C BC #### [facility] [address] [address] [address] Manda York EO # 0.2 103/ul Normal 0.0-0.7 [facility] Comment on above: Performed By: #### C BC #### [facility] [address] [address] [address] Manda York Eosinophils/100 WBC (Bld) 1.2 % Normal 0.9-7.0 [facility] Comment on above: Performed By: #### C BC #### [facility] [address] [address] [address] Manda York Erythrocyte distribution width (RBC) [Ratio] 14.6 % Normal 11.0-15.0 [facility] Comment on above: Performed By: #### C BC #### [facility] [address] [address] [address] Manda York Hematocrit (Bld) [Volume fraction] 39.2 % Normal 36.0-48.0 [facility] Comment on above: Performed By: #### C BC #### [facility] [address] [address] [address] Manda York Hemoglobin (Bld) [Mass/Vol] 12.7 g/dL Normal 12.0-16.0 [facility] Comment on above: Performed By: #### C BC #### [facility] [address] [address] [address] Manda York IG # 0.06 10e3/ul Critically high 0.00-0.03 [facility] Comment on above: Performed By: #### C BC #### [facility] [address] [address] [address] Manda York IG % 0.5 % Normal 0.0-0.5 [facility] Comment on above: Performed By: #### C BC #### [facility] [address] [place] [address] Dr. Manda York LYMPH # 3.7 103/ul Normal 1.2-3.8 [facility] Comment on above: Performed By: #### C BC #### [facility] [address] [place] [address] Dr. Manda York Lymphocytes/100 WBC (Bld) 31.0 % Normal 20.5-60.0 [facility] Comment on above: Performed By: #### C BC #### [facility] [address] [place] [address] Dr. Manda York MANUAL DIFF REQ NO Normal [facility] Comment on above: Performed By: #### C BC #### [facility] [address] [place] [address] Dr. Manda York MCH (RBC) [Entitic mass] 28.9 pg Normal 26.7-34.0 [facility] Comment on above: Performed By: #### C BC #### [facility] [address] [place] [address] Dr. Manda York MCHC (RBC) [Mass/Vol] 32.4 g/dL Normal 29.9-35.[address] [facility] Comment on above: Performed By: #### C BC #### [facility] [address] [place] [address] Dr. Manda York MCV (RBC) [Entitic vol] 89.1 fL Normal 81.0-99.0 [facility] Comment on above: Performed By: #### C BC #### [facility] [address] [place] [address] Dr. Manda York MONO # 0.7 103/ul Normal 0.3-0.[address] [facility] Comment on above: Performed By: #### C BC #### [facility] [address] [place] [address] Dr. Manda York Monocytes/100 WBC (Bld) 5.8 % Normal 1.7-12.[address] [facility] Comment on above: Performed By: #### C BC #### [facility] [address] [address] [address] Manda York NEUT # 7.3 103/ul Critically high 1.4-6.5 [facility] Comment on above: Performed By: #### C BC #### [facility] [address] [address] [address] Manda York Neutrophils/100 WBC (Bld) 61.1 % Normal 43.0-75.[address] [facility] Comment on above: Performed By: #### C BC #### [facility] [address] [address] [address] Manda York Platelet mean volume (Bld) [Entitic vol] 9.7 fL Normal 9.5-13.5 [facility] Comment on above: Performed By: #### C BC #### [facility] [address] [place] [address] Dr. Manda York PLT 297 103/ul Normal 150-[address] [facility] Comment on above: Performed By: #### C BC #### [facility] [address] [place] [address] Dr. Manda York RBC 4.40 106/ul Normal 4.20-5.[address] [facility] Comment on above: Performed By: #### C BC #### [facility] [address] [place] [address] Dr. Manda York WBC 12.0 103/ul Critically high 4.0-11.0 [facility] Comment on above: Performed By: #### C BC #### [facility] [address] [place] [address] Dr. Manda York FREE THYROXINE INDEX T7on FTI 3.81 Normal 1.30-4.50 [facility] Comment on above: Performed By: #### U AMIC #### [facility] [address] [place] [address] Dr. Manda York T3U 34.0 % Normal 30.0-39.0 [facility] Comment on above: Performed By: #### U AMIC #### [facility] [address] [address] [address] Manda York T4 [Mass/Vol] 11.20 ug/dL Normal 4.80-13.90 [facility] Comment on above: Performed By: #### U AMIC #### [facility] [address] [place] [address] Dr. Manda York GLYCOHEMOGLOBIN A1Con 2021 ADA RECOMMENDATION SEE BELOW Normal [facility] Comment on above: Result Comment: ADA RECOMMENDED LIMIT 4.0 - 6.0 ADA THERAPEUTIC TARGET < 7.0 ACTION SUGGESTED > 7.0 Performed By: #### S LORIE THYLC #### [facility] [address] [address] [address] Manda York Glucose [Mass/Vol] 117 mg/dL Normal [facility] Comment on above: Performed By: #### S LORIE THYLC #### [facility] [address] [place] [address] Dr. Manda York HbA1c (Bld) [Mass fraction] 5.7 % Normal 4.5-6.2 [facility] Comment on above: Performed By: #### S LORIE THYLC #### [facility] [address] [address] [address] Manda York IRONon 03-09-2022 Iron [Mass/Vol] 61.0 ug/dL Normal 50.0-170.0 [facility] Comment on above: Performed By: #### C BC #### [facility] [address] [place] [address] Dr. Manda York LIPID PROFILEon 03-09-2022 CHOL-HDL RATIO NORM SEE BELOW Normal [facility] Comment on above: Result Comment: 3.3 - 4.4 LOW RISK 4.4 - 7.1 AVERAGE RISK 7.1 - 11.0 MODERATE RISK >11.0 HIGH RISK Performed By: #### U AMIC #### [facility] [address] [place] [address] Dr. Manda York Cholesterol [Mass/Vol] 260 mg/dL Critically high <=200 [facility] Comment on above: Performed By: #### U AMIC #### [facility] [address] [place], [place] [address] Dr. Manda York Cholesterol in HDL [Mass/Vol] 38 mg/dL Critically low 40-60 [facility] Comment on above: Performed By: #### U AMIC #### [facility] [address] [place], [place] [address] Dr. Manda York Cholesterol in LDL [Mass/Vol] 170.8 mg/dL Normal [facility] Comment on above: Performed By: #### U AMIC #### [facility] [address] [address] [address] Manda York Cholesterol.total/Chol esterol in HDL [Mass ratio] 6.8 {ratio} Normal [facility] Comment on above: Performed By: #### U AMIC #### [facility] [address] [address] [address] Manda York HDL NORMAL > or = 60 mg/dl - LO W CARDIOVASCULAR RISK <40 mg/dl - HIGH CARDIOVASCULAR RISK Normal [facility] Comment on above: Performed By: #### U AMIC #### [facility] [address] [address] [address] Manda York LDL CALC NORMAL SEE BELOW Normal [facility] Comment on above: Result Comment: <100 mg/dl OPTIMAL 100 - 129 mg/dl NEAR OR ABOVE OPTIMAL 130 - 159 mg/dl BORDERLINE HIGH 160 - 189 mg/dl HIGH >190 mg/dl VERY HIGH Performed By: #### U AMIC #### [facility] [address] [address] [address] Manda York Triglyceride [Mass/Vol] 256 mg/dL Critically high <=[address] [facility] Comment on above: Performed By: #### U AMIC #### [facility] [address] [address] [address] Manda York VLDL CALC 51.2 mg/dL Normal [facility] Comment on above: Performed By: #### U AMIC #### [facility] [address] [address] [address] Manda York PROF 14(COMP METB)on 022 Albumin [Mass/Vol] 3.8 g/dL Normal 3.4-5.0 [facility] Comment on above: Performed By: #### U AMIC #### [facility] [address] [address] [address] Manda York Albumin/Globulin [Mass ratio] 1.0 {ratio} Normal [facility] Comment on above: Performed By: #### U AMIC #### [facility] [address] [address] [address] Manda York ALP [Catalytic activity/Vol] 66 U/L Normal 46-116 [facility] Comment on above: Performed By: #### U AMIC #### [facility] [address] [place] [address] Dr. Manda York ALT [Catalytic activity/Vol] 27 U/L Normal 14-59 [facility] Comment on above: Performed By: #### U AMIC #### [facility] [address] [address] [address] Manda York Anion gap [Moles/Vol] 11.8 mmol/L Normal [facility] Comment on above: Performed By: #### U AMIC #### [facility] [address] [address] [address] Manda York AST [Catalytic activity/Vol] 9 U/L Critically low 15-37 [facility] Comment on above: Performed By: #### U AMIC #### [facility] [address] [address] [address] Manda York Bilirubin [Mass/Vol] 0.2 mg/dL Normal 0.2-1.0 [facility] Comment on above: Performed By: #### U AMIC #### [facility] [address] [address] [address] Manda York Calcium [Mass/Vol] 9.1 mg/dL Normal 8.5-10.1 [facility] Comment on above: Performed By: #### U AMIC #### [facility] [address] [address] [address] Manda York Chloride [Moles/Vol] 101 mmol/L Normal 98-107 [facility] Comment on above: Performed By: #### U AMIC #### [facility] [address] [address] [address] Manda York CO2 [Moles/Vol] 26.1 mmol/L Normal 21.0-32.0 [facility] Comment on above: Performed By: #### U AMIC #### [facility] [address] [address] [address] Manda York Creatinine [Mass/Vol] 0.80 mg/dL Normal 0.55-1.02 [facility] Comment on above: Performed By: #### U AMIC #### [facility] [address] [address] [address] Manda York EGFR-AF CITIZ[place] >60 Normal >=60 [facility] Comment on above: Performed By: #### U AMIC #### [facility] [address] [address] [address] Manda York EGFR-NON AF CITIZEN OF [place] >60 Normal >=60 [facility] Comment on above: Performed By: #### U AMIC #### [facility] [address] [address] [address] Manda York Globulin (S) [Mass/Vol] 3.8 g/dL Normal [facility] Comment on above: Performed By: #### U AMIC #### [facility] [address] [address] [address] Manda York Glucose [Mass/Vol] 93 mg/dL Normal 74-106 [facility] Comment on above: Performed By: #### U AMIC #### [facility] [address] [address] [address] Manda York Potassium [Moles/Vol] 3.9 mmol/L Normal 3.5-5.[address] [facility] Comment on above: Performed By: #### U AMIC #### [facility] [address] [address] [address] Manda York Protein [Mass/Vol] 7.6 g/dL Normal 6.4-8.2 [facility] Comment on above: Performed By: #### U AMIC #### [facility] [address] [address] [address] Manda York Sodium [Moles/Vol] 135 mmol/L Critically low 136-145 [facility] Comment on above: Performed By: #### U AMIC #### [facility] [address] [place], [place] [address] Dr. Manda York Urea nitrogen [Mass/Vol] 10.0 mg/dL Normal 7.0-18.0 [facility] Comment on above: Performed By: #### U AMIC #### [facility] [address] [address] [address] Manda York Urea nitrogen/Creatinine [Mass ratio] 12.5 mg/mg Normal [facility] Comment on above: Performed By: #### U AMIC #### [facility] [address] [address] [address] Manda York TSHon 03-09-2022 TSH 0.610 uIU/mL Normal 0.358-3.740 [facility] Comment on above: Performed By: #### U AMIC #### [facility] [address] [address] [address] Manda York B2 MICROGLOBULIN [facility] 022 [id number] [Mass/Vol] 1.8 ug/mL 0.8 - 2.4 mg/L [facility] FERRITIN BLDon 03-05-2022 Ferritin [Mass/Vol] 33.2 ng/mL 14.7 - 2 05.1 ng/mL [facility] FOLATE SERUMon 03-05-2022 Folate [Mass/Vol] 6.6 ng/mL >4.7 ng/mL [facility] Iron and Iron binding capaci ty panelon 03-05-2022 Iron [Mass/Vol] 49 ug/dL 41 - 186 ug/dL [facility] Iron binding capacity [Mass/Vol] 392 ug/dL High 232 - 386 ug/dL [facility] Iron/TIBC [Molar ratio] 12.5 % Low 15.0 - 57.0 % [facility] CBC W Auto Differential pane l (Bld)on 03-04-2022 Basophils (Bld) [#/Vol] 0.07 10*3/uL <0.11 k/uL [facility] Basophils/100 WBC (Bld) 0.6 % [facility] Differential cell count method Nom (Bld) Auto [facility] Eosinophils (Bld) [#/Vol] 0.19 10*3/uL <0.46 k/uL [facility] Eosinophils/100 WBC (Bld) 1.7 % [facility] Erythrocyte distribution width (RBC) [Ratio] 14.7 % 11.5 - 15.0 % [facility] Hematocrit (Bld) [Volume fraction] 40.0 % 36.0 - 46.0 % [facility] Hemoglobin (Bld) [Mass/Vol] 13.0 g/dL 11.5 - 15.5 g/dL [facility] Immature granulocytes (Bld) [#/Vol] 0.07 10*3/uL <0.10 k/uL [facility] Immature granulocytes/100 WBC (Bld) 0.6 % [facility] Lymphocytes (Bld) [#/Vol] 3.31 10*3/uL 1.00 - 4.00 k/uL [facility] Lymphocytes/100 WBC (Bld) 30.2 % [facility] MCH (RBC) [Entitic mass] 28.9 pg 26.0 - 34.0 pg [facility] MCHC (RBC) [Mass/Vol] 32.5 g/dL 30.5 - 36.0 g/dL [facility] MCV (RBC) [Entitic vol] 88.9 fL 80.0 - 100.0 fL [facility] Monocytes (Bld) [#/Vol] 0.70 10*3/uL <0.87 k/uL [facility] Monocytes/100 WBC (Bld) 6.4 % [facility] Neutrophils (Bld) [#/Vol] 6.63 10*3/uL 1.45 - 7.50 k/uL [facility] Neutrophils/100 WBC (Bld) 60.5 % [facility] Nucleated RBC (Bld) [#/Vol] <0.01 k/uL [facility] Nucleated RBC/100 WBC (Bld) [Ratio] 0.0 /100 WBC [facility] Platelet mean volume (Bld) [Entitic vol] 9.6 fL 9.0 - 12.7 fL [facility] Platelets (Bld) [#/Vol] 355 10*3/uL 150 - 400 k/uL [facility] RBC (Bld) [#/Vol] 4.50 10*6/uL 3.90 - 5.2 0 m/uL [facility] WBC (Bld) [#/Vol] 10.97 10*3/uL 3.70 - 11 .00 k/uL [facility] Calcium.ionized [Moles/Vol]o n 03-04-2022 Calcium.ionized (Bld) [Mass/Vol] 1.26 mmol/L 1.08 - 1.30 mmol/L [facility] Calcium.ionized adjusted to pH 7.4 (Bld) [Moles/Vol] 1.25 mmol/L 1.08 - 1.30 mmol/L [facility] Comprehensive metabolic 2000 panelon 03-04-2022 Albumin [Mass/Vol] 4.3 g/dL 3.9 - 4.9 g/dL [facility] ALP [Catalytic activity/Vol] 70 U/L 34 - 123 U/L [facility] ALT [Catalytic activity/Vol] 26 U/L 7 - 38 U/L [facility] Anion gap [Moles/Vol] 7 mmol/L Low 9 - 18 mmol/L [facility] AST [Catalytic activity/Vol] 12 U/L Low 13 - 35 U/L [facility] Bilirubin [Mass/Vol] 0.2 mg/dL 0.2 - 1 .3 mg/dL [facility] Calcium [Mass/Vol] 9.3 mg/dL 8.5 - 10. 2 mg/dL [facility] Chloride [Moles/Vol] 103 mmol/L 97 - 10 5 mmol/L [facility] CO2 [Moles/Vol] 28 mmol/L 22 - 30 mmol/L [facility] Creatinine [Mass/Vol] 0.69 mg/dL 0.58 - 0.96 mg/dL [facility] Estimated Glomerular Filtration Rate 112 mL/min/1.73m >=60 mL/min/1.73m [facility] Glucose [Mass/Vol] 100 mg/dL High 74 - 99 mg/dL [facility] Potassium [Moles/Vol] 3.9 mmol/L 3.7 - 5.1 mmol/L [facility] Protein [Mass/Vol] 7.0 g/dL 6.3 - 8.0 g/dL [facility] Sodium [Moles/Vol] 138 mmol/L 136 - 144 mmol/L [facility] Urea nitrogen [Mass/Vol] 12 mg/dL 7 - 21 mg/dL [facility] LD LACTATE DEHYDROon 022 LDH [Catalytic activity/Vol] 135 U/L 135 - 214 U/L [facility] PHOSPHORUS INORGANICon 03-04 Phosphate [Mass/Vol] 3.2 mg/dL 2.7 - 4 .8 mg/dL [facility] URIC ACID BLOODon 03-04-2022 Urate [Mass/Vol] 5.2 mg/dL 2.5 - 6.6 mg/dL [facility] IMMUNOGLOBULINS IGA/IGM/IGG/ IGE QUANTITAon 02-20-2022 Immunoglobulin A, Qn, Serum 189 mg/dL Normal 87-352 [facility] Comment on above: Result Comment: Perf ormed at: CB Performed By: #### LEANN PATRICKC #### [facility] [address] [address] [address] Manda York Immunoglobulin E, Total 10 IU/mL Normal 6-495 [facility] Comment on above: Result Comment: Perf ormed at: BN Performed By: #### LEANN PATRICKC #### [facility] [address] [address] [address] Manda York Immunoglobulin G, Qn, Serum 598 mg/dL Normal 586-1602 [facility] Comment on above: Result Comment: Perf ormed at: CB Performed By: #### LEANN PATRICKC #### [facility] [address] [address] [address] Manda York Immunoglobulin M, Qn, Serum 493 mg/dL Critically high 26-217 [facility] Comment on above: Result Comment: Perf ormed at: CB Performed By: #### LEANN PATRICKC #### [facility] [address] [address] [address] Manda York CHRISTIAN by IFAon 02-19-2022 Antinuclear Antibodies, IFA Negative Normal [facility] Comment on above: Result Comment: Nega tive <1:80 Borderline 1:80 Positive >1:80 ICAP nomenclature: AC-0 For more information about Hep-2 cell patterns use ANApatterns.org, the official website for the International Consensus on Antinuclear Antibody (CHRISTIAN) Patterns (ICAP). Performed By: #### S LUIGI MELO #### [facility] [address] [place] [address] Dr. Manda York THYROID ANTIBODIESon Thyroglobulin Antibody <1.0 Normal 0.0-0.9 [facility] Comment on above: Result Comment: Thyr oglobulin Antibody measured by [employer] Methodology Performed By: #### F T4 #### [facility] [address] [place] [address] Dr. Manda York Thyroid Peroxidase (TPO) Ab <8 Normal 0-34 [facility] Comment on above: Performed By: #### F T4 #### [facility] [address] [place] [address] Dr. Manda York PROTEIN ELECTROPHERESISon Albumin [Mass/Vol] 3.2 g/dL Normal 2.9-4.4 [facility] Comment on above: Performed By: #### F T4 #### [facility] [address] [place] [address] Dr. Manda York Albumin/Globulin [Mass ratio] 1.0 {ratio} Normal 0.7-1.7 [facility] Comment on above: Performed By: #### F T4 #### [facility] [address] [place] [address] Dr. Manda York Pfipq-7-Hkttmpkl 0.2 g/dL Normal 0.0-0.4 [facility] Comment on above: Performed By: #### F T4 #### [facility] [address] [place] [address] Dr. Manda York Atjjc-1-Sxukulyj 0.9 g/dL Normal 0.4-1.0 [facility] Comment on above: Performed By: #### F T4 #### [facility] [address] [place] [address] Dr. Manda York Beta Globulin 1.2 g/dL Normal 0.7-1.3 [facility] Comment on above: Performed By: #### F T4 #### [facility] [address] [address] [address] Manda York Gamma Globulin 0.9 g/dL Normal 0.4-1.8 [facility] Comment on above: Performed By: #### F T4 #### [facility] [address] [place] [address] Dr. Manda York Globulin (S) [Mass/Vol] 3.2 g/dL Normal 2.2-3.9 [facility] Comment on above: Performed By: #### F T4 #### [facility] [address] [place] [address] Dr. Manda York M-Jose De Jesus Not Observed Normal Not Observed [facility] Comment on above: Performed By: #### F T4 #### [facility] [address] [place] [address] Dr. Manda York PDF . Normal [facility] Comment on above: Performed By: #### F T4 #### [facility] [address] [place] [address] Dr. Manda York Please note: Comment Normal [facility] Comment on above: Result Comment: Prot ein electrophoresis scan will follow via computer, mail, or process control supervisor delivery. Performed By: #### F T4 #### [facility] [address] [place] [address] Dr. Manda York Protein [Mass/Vol] 6.4 g/dL Normal 6.0-8.5 [facility] Comment on above: Performed By: #### F T4 #### [facility] [address] [place] [address] Dr. Manda York SLE PROFILE Aon 02-16-2022 Anti-DNA (DS) Ab Qn 9 IU/mL Normal 0-9 [facility] Comment on above: Result Comment: Nega tive <5 Equivocal 5 - 9 Positive >9 Performed By: #### S LUIGI MELO #### [facility] [address] [place] [address] Dr. Manda York Antichromatin Antibodies <0.2 Normal 0.0-0.9 [facility] Comment on above: Performed By: #### LEANN PATRICKC #### [facility] [address] [place] [address] Dr. Manda York RA Latex Turbid. <10.0 Normal <14.0 [facility] Comment on above: Performed By: #### LEANN PATRICKC #### [facility] [address] [place] [address] Dr. Manda York CRYSTALLOGRAPHY TEACHER Antibodies <0.2 Normal 0.0-0.9 [facility] Comment on above: Performed By: #### LEANN PATRICKC #### [facility] [address] [place] [address] Dr. Manda Solorzanoogryaniv's Anti-SS-A <0.2 Normal 0.0-0.9 [facility] Comment on above: Performed By: #### LUIGI PATRICK #### [facility] [address] [place] [address] Dr. Manda Solorzanoogryaniv'lucinda Anti-SS-B <0.2 Normal 0.0-0.9 [facility] Comment on above: Performed By: #### LUIGI PATRCIK #### [facility] [address] [place] [address] Dr. Manda York Schneider Antibodies <0.2 Normal 0.0-0.9 [facility] Comment on above: Performed By: #### LUIGI PATRICK #### [facility] [address] [place] [address] Dr. Manda York ANTISTREPTOLYSIN O AB (ASO)o n 02-15-2022 Antistreptolysin O Ab 49.6 IU/mL Normal 0.0-200.0 [facility] Comment on above: Performed By: #### A SOAB #### [facility] [address] [place] [address] Dr. Manda York MICROALBUMIN URINEon 022 Albumin, Urine <3.0 Normal Not Estab. [facility] Comment on above: Result Comment: Ve rified by repeat analysis Performed By: #### C BC #### [facility] [address] [place] [address] Dr. Manda York T4, T3U, FTI LABCORPon 02-15 Free Thyroxine Index 2.6 Normal 1.2-4.9 [facility] Comment on above: Performed By: #### S LORIE THYLC #### [facility] [address] [place] [address] Dr. Manda York T3 Uptake 26 % Normal 24-[address] [facility] Comment on above: Performed By: #### S LORIE THYLC #### [facility] [address] [place] [address] Dr. Manda York T4 [Mass/Vol] 9.9 ug/dL Normal 4.5-12.0 [facility] Comment on above: Performed By: #### S LEANN MELOC #### [facility] [address] [place] [address] Dr. Manda York CBC AUTO DIFFon 02-14-2022 BASO # 0.1 103/ul Normal 0.0-0.1 [facility] Comment on above: Performed By: #### U AMIC #### [facility] [address] [place] [address] Dr. Manda York Basophils/100 WBC (Bld) 0.6 % Normal 0.2-2.0 [facility] Comment on above: Performed By: #### U AMIC #### [facility] [address] [place] [address] Dr. Manda York EO # 0.3 103/ul Normal 0.0-0.7 [facility] Comment on above: Performed By: #### U AMIC #### [facility] [address] [place] [address] Dr. Manda York Eosinophils/100 WBC (Bld) 3.4 % Normal 0.9-7.0 [facility] Comment on above: Performed By: #### U AMIC #### [facility] [address] [place] [address] Dr. Manda York Erythrocyte distribution width (RBC) [Ratio] 14.6 % Normal 11.0-15.0 [facility] Comment on above: Performed By: #### U AMIC #### [facility] [address] [place] [address] Dr. Manda York Hematocrit (Bld) [Volume fraction] 39.1 % Normal 36.0-48.0 [facility] Comment on above: Performed By: #### U AMIC #### [facility] [address] [place] [address] Dr. Manda York Hemoglobin (Bld) [Mass/Vol] 12.4 g/dL Normal 12.0-16.0 [facility] Comment on above: Performed By: #### U AMIC #### [facility] [address] [place] [address] Dr. Manda York IG # 0.03 10e3/ul Normal 0.00-0.03 [facility] Comment on above: Performed By: #### U AMIC #### [facility] [address] [place] [address] Dr. Manda York IG % 0.3 % Normal 0.0-0.5 [facility] Comment on above: Performed By: #### U AMIC #### [facility] [address] [place] [address] Dr. Manda York LYMPH # 3.6 103/ul Normal 1.2-3.8 [facility] Comment on above: Performed By: #### U AMIC #### [facility] [address] [place] [address] Dr. Manda York Lymphocytes/100 WBC (Bld) 39.9 % Normal 20.5-60.0 [facility] Comment on above: Performed By: #### U AMIC #### [facility] [address] [place] [address] Dr. Manda York MANUAL DIFF REQ NO Normal [facility] Comment on above: Performed By: #### U AMIC #### [facility] [address] [place] [address] Dr. Manda York MCH (RBC) [Entitic mass] 28.4 pg Normal 26.7-34.0 [facility] Comment on above: Performed By: #### U AMIC #### [facility] [address] [address] [address] Manda York MCHC (RBC) [Mass/Vol] 31.7 g/dL Normal 29.9-35.2 [facility] Comment on above: Performed By: #### U AMIC #### [facility] [address] [address] [address] Manda York MCV (RBC) [Entitic vol] 89.7 fL Normal 81.0-99.0 [facility] Comment on above: Performed By: #### U AMIC #### [facility] [address] [place] [address] Dr. Manda York MONO # 0.7 103/ul Normal 0.3-0.8 [facility] Comment on above: Performed By: #### U AMIC #### [facility] [address] [place] [address] Dr. Manda York Monocytes/100 WBC (Bld) 7.3 % Normal 1.7-12.0 [facility] Comment on above: Performed By: #### U AMIC #### [facility] [address] [place] [address] Dr. Manda York NEUT # 4.4 103/ul Normal 1.4-6.[address] [facility] Comment on above: Performed By: #### U AMIC #### [facility] [address] [place] [address] Dr. Manda York Neutrophils/100 WBC (Bld) 48.5 % Normal 43.0-75.[address] [facility] Comment on above: Performed By: #### U AMIC #### [facility] [address] [place] [address] Dr. Manda York Platelet mean volume (Bld) [Entitic vol] 10.1 fL Normal 9.5-13.[address] [facility] Comment on above: Performed By: #### U AMIC #### [facility] [address] [place] [address] Dr. Manda York PLT 310 103/ul Normal 150-450 [facility] Comment on above: Performed By: #### U AMIC #### [facility] [address] [place] [address] Dr. Manda York RBC 4.36 106/ul Normal 4.20-5.40 [facility] Comment on above: Performed By: #### U AMIC #### [facility] [address] [place] [address] Dr. Manda York WBC 9.0 103/ul Normal 4.0-11.0 [facility] Comment on above: Performed By: #### U AMIC #### [facility] [address] [place] [address] Dr. Manda York CRPon 02-14-2022 CRP [Mass/Vol] mg/L Normal <=1.0 [facility] Comment on above: Performed By: #### U AMIC #### [facility] [address] [place] [address] Dr. Manda York CULTURE URINEon 02-14-2022 CULTURE URINE Culture Observations : LIGHT GROWTH OF MIXED GENITAL AMBER. NO POTENTIAL PATHOGENS SEEN. Normal [facility] Comment on above: Performed By: #### C BC #### [facility] [address] [place] [address] Dr. Manda York PROF 14(COMP METB)on 022 Albumin [Mass/Vol] 3.5 g/dL Normal 3.4-5.0 [facility] Comment on above: Performed By: #### U AMIC #### [facility] [address] [place] [address] Dr. Manda York Albumin/Globulin [Mass ratio] 1.0 {ratio} Normal [facility] Comment on above: Performed By: #### U AMIC #### [facility] [address] [place] [address] Dr. Manda York ALP [Catalytic activity/Vol] 71 U/L Normal 46-[address] [facility] Comment on above: Performed By: #### U AMIC #### [facility] [address] [place] [address] Dr. Manda York ALT [Catalytic activity/Vol] 46 U/L Normal 14-59 [facility] Comment on above: Performed By: #### U AMIC #### [facility] [address] [address] [address] Manda York Anion gap [Moles/Vol] 11.6 mmol/L Normal Th [facility] Comment on above: Performed By: #### U AMIC #### [facility] [address] [address] [address] Manda York AST [Catalytic activity/Vol] 15 U/L Normal 15-37 [facility] Comment on above: Performed By: #### U AMIC #### [facility] [address] [place] [address] Dr. Manda York Bilirubin [Mass/Vol] 0.2 mg/dL Normal 0.2-1.0 [facility] Comment on above: Performed By: #### U AMIC #### [facility] [address] [place] [address] Dr. Manda York Calcium [Mass/Vol] 8.7 mg/dL Normal 8.5-10.1 [facility] Comment on above: Performed By: #### U AMIC #### [facility] [address] [place] [address] Dr. Manda York Chloride [Moles/Vol] 104 mmol/L Normal 98-107 [facility] Comment on above: Performed By: #### U AMIC #### [facility] [address] [place] [address] Dr. Manda York CO2 [Moles/Vol] 25.1 mmol/L Normal 21.0-32.0 [facility] Comment on above: Performed By: #### U AMIC #### [facility] [address] [place] [address] Dr. Manda York Creatinine [Mass/Vol] 0.80 mg/dL Normal 0.55-1.02 [facility] Comment on above: Performed By: #### U AMIC #### [facility] [address] [address] [address] Manda York EGFR-AF [place]IZ[place] >60 Normal >=60 [facility] Comment on above: Performed By: #### U AMIC #### [facility] [address] [address] [address] Manda York EGFR-NON AF [place]IZEN [place] >60 Normal >=60 [facility] Comment on above: Performed By: #### U AMIC #### [facility] [address] [address] [address] Manda York Globulin (S) [Mass/Vol] 3.6 g/dL Normal [facility] Comment on above: Performed By: #### U AMIC #### [facility] [address] [address] [address] Manda York Glucose [Mass/Vol] 92 mg/dL Normal 74-106 [facility] Comment on above: Performed By: #### U AMIC #### [facility] [address] [address] [address] Manda York Potassium [Moles/Vol] 3.7 mmol/L Normal 3.5-5.1 [facility] [facility] Comment on above: Performed By: #### U AMIC #### [facility] [address] [address] [address] Manda York Protein [Mass/Vol] 7.1 g/dL Normal 6.4-8.2 [facility] Comment on above: Performed By: #### U AMIC #### [facility] [address] [address] [address] Manda York Sodium [Moles/Vol] 137 mmol/L Normal 136-145 [facility] Comment on above: Performed By: #### U AMIC #### [facility] [address] [address] [address] Manda York Urea nitrogen [Mass/Vol] 17.0 mg/dL Normal 7.0-18.0 [facility] Comment on above: Performed By: #### U AMIC #### [facility] [address] [address] [address] Manda York Urea nitrogen/Creatinine [Mass ratio] 21.2 mg/mg Normal [facility] Comment on above: Performed By: #### U AMIC #### [facility] [address] [place] [address] Dr. Manda York SED RATE WESTERGREN 2021 SED RATE 40 mm/hr Critically high <=20 [facility] Comment on above: Performed By: #### S EDR #### [facility] [address] [place] [address] Dr. Manda York TSHon 02-14-2022 TSH 1.155 uIU/mL Normal 0.358-3.740 [facility] Comment on above: Performed By: #### U AMIC #### [facility] [address] [place] [address] Dr. Manda York UA RANDOM W/MICROSCOPICon BACTERIA NONE SEEN Normal NONE SEEN [facility] Comment on above: Performed By: #### U AMIC #### [facility] [address] [place] [address] Dr. Manda York Bilirubin Ql (U) Negative Normal NEGATIVE [facility] Comment on above: Performed By: #### U AMIC #### [facility] [address] [place] [address] Dr. Manda York CAST NONE SEEN Normal NONE SEEN [facility] Comment on above: Performed By: #### U AMIC #### [facility] [address] [place] [address] Dr. Manda York Clarity (U) CLEAR Normal CLEAR The [facility] Comment on above: Performed By: #### U AMIC #### [facility] [address] [place] [address] Dr. Manda York Color (U) LT. YELLOW Normal YELLOW The [facility] Comment on above: Performed By: #### U AMIC #### [facility] [address] [place] [address] Dr. Manda York Crystals LM Nom (Urine sed) NONE SEEN Normal NONE SEEN [facility] Comment on above: Performed By: #### U AMIC #### [facility] [address] [place] [address] Dr. Manda York Epithelial cells LM Ql (Urine sed) RARE Normal NONE SEEN /RARE The [facility] Comment on above: Performed By: #### U AMIC #### [facility] [address] [address] [address] Manda York Glucose Ql (U) Negative Normal NEGATIVE The [facility] Comment on above: Performed By: #### U AMIC #### [facility] [address] [address] [address] Manda York Hemoglobin Ql (U) Negative Normal NEGATIVE [facility] Comment on above: Performed By: #### U AMIC #### [facility] [address] [address] [address] Manda York Ketones Ql (U) Negative Normal NEGATIVE [facility] Comment on above: Performed By: #### U AMIC #### [facility] [address] [place] [address] Dr. Manda York LEUKOCYTES Negative Normal NEGATIVE [facility] Comment on above: Performed By: #### U AMIC #### [facility] [address] [address] [address] Manda York MUCOUS NONE SEEN Normal NONE SEEN The [facility] Comment on above: Performed By: #### U AMIC #### [facility] [address] [address] [address] Manda York Nitrite Ql (U) Negative Normal NEGATIVE [facility] Comment on above: Performed By: #### U AMIC #### [facility] [address] [address] [address] Manda York pH (U) 6.0 [pH] Normal 5-[address] [facility] Comment on above: Performed By: #### U AMIC #### [facility] [address] [address] [address] Manda York RBC NONE SEEN Abnormal 0-2 [facility] Comment on above: Performed By: #### U AMIC #### [facility] [address] [place] [address] Dr. Manda York SPEC GRAVITY 1.005 Normal 1.005-<=1.025 [facility] Comment on above: Performed By: #### U AMIC #### [facility] [address] [address] [address] Manda York UA PROTEIN Negative Normal NEGATIVE/ TRACE The [facility] Comment on above: Performed By: #### U AMIC #### [facility] [address] [address] [address] Manda York Urobilinogen Qn (U) 0.2 {Carmella'U}/dL Normal 0.2 - 1. 0 [facility] Comment on above: Performed By: #### U AMIC #### [facility] [address] [place] [address] Dr. Manda York WBC NONE SEEN Normal NONE SEEN The [facility] Comment on above: Performed By: #### U AMIC #### [facility] [address] [place] [address] Dr. Manda York URIC ACID SERUMon 02-14-2022 Urate [Mass/Vol] 4.2 mg/dL Normal 2.6-6.0 [facility] Comment on above: Performed By: #### U AMIC #### [facility] [address] [place] [address] Dr. Manda York VITAMIN D 25 OHon 02-14-2022 VIT D 25-OH 22.4 ng/mL Normal [facility] Comment on above: Performed By: #### F T4 #### [facility] [address] [place] [address] Dr. Manda York VIT D RANGES SEE BELOW Normal [facility] Comment on above: Result Comment: <20 ng/mL Vit D deficient 20 - <30 ng/mL Vit D insufficient 30 - 100 ng/mL Vit D sufficient >100 ng/mL Potential Toxicity Performed By: #### F T4 #### [facility] [address] [place] [address] Dr. Manda York METANEPHRINES FRAC. QNT 24 H R URINEon 11-28-2021 Metanephrine, U,24hr Comment Normal 36-209 [facility] Comment on above: Result Comment: No t otal volume submitted. Unable to calculate 24 hour result. Performed By: #### S LORIE THYL #### [facility] [address] [address] [address] Manda York Metanephrine, Ur 57 ug/L Normal Undefined [facility] Comment on above: Performed By: #### LEANN PATRICKC #### [facility] [address] [address] [address] Manda York Normetanephr.,U,24h Comment Normal 131-612 [facility] Comment on above: Result Comment: No t otal volume submitted. Unable to calculate 24 hour result. Performed By: #### S LEANN MELOC #### [facility] [address] [address] [address] Manda York Normetanephrine, Ur 116 ug/L Normal Undefined [facility] Comment on above: Performed By: #### LEANN PATRICK #### [facility] [address] [address] [address] Manda York METANEPHRINES PLASMA FREEon 11-27-2021 Metanephrine, Pl 22.1 pg/mL Normal 0.0-88.0 [facility] Comment on above: Performed By: #### LEANN PATRICK #### [facility] [address] [place] [address] Dr. Manda York Normetanephrine, Pl 50.7 pg/mL Normal 0.0-218.9 [facility] Comment on above: Performed By: #### LEANN PATRICK #### [facility] [address] [address] [address] Manda York CMV PLASMA PCRon 11-19-2021 CMV Quant DNA PCR (Plasma) Negative Normal Negative [facility] Comment on above: Result Comment: No C MV DNA detected. The quantitative range of this assay is 200 to 1 million IU/mL. Performed By: #### LEANN PATRICKC #### [facility] [address] [place] [address] Dr. Manda York log10 CMV Qn DNA Pl UPTCAL Normal [facility] Comment on above: Result Comment: Unab le to calculate result since non-numeric result obtained for component test. Performed By: #### S LAENN MELO #### [facility] [address] [place] [address] Dr. Manda York CMV AB IGMon 11-18-2021 Cytomegalovirus (CMV) Ab, IgM 43.2 AU/mL Critically high 0.0-29.9 [facility] Comment on above: Result Comment: Nega tive <30.0 Equivocal 30.0 - 34.9 Positive >34.9 A positive result is generally indicative of acute infection, reactivation or persistent IgM production. Performed By: #### S LUIGI MELO #### [facility] [address] [place] [address] Dr. Manda York CMV AB, IGGon 11-18-2021 Cytomegalovirus (CMV) Ab, IgG >10.00 Critically high 0.00-0.59 [facility] Comment on above: Result Comment: Nega tive <0.60 Equivocal 0.60 - 0.69 Positive >0.69 Performed By: #### C MVIGG #### [facility] [address] [place] [address] Dr. Manda York CBC AUTO DIFFon 11-17-2021 BASO # 0.1 103/ul Normal 0.0-0.1 [facility] Comment on above: Performed By: #### C BC #### [facility] [address] [place] [address] Dr. Manda York Basophils/100 WBC (Bld) 0.6 % Normal 0.2-2.[address] [facility] Comment on above: Performed By: #### C BC #### [facility] [address] [place] [address] Dr. Manda York EO # 0.2 103/ul Normal 0.0-0.[address] [facility] Comment on above: Performed By: #### C BC #### [facility] [address] [place] [address] Dr. Manda York Eosinophils/100 WBC (Bld) 2.3 % Normal 0.9-7.[address] [facility] Comment on above: Performed By: #### C BC #### [facility] [address] [place] [address] Dr. Manda York Erythrocyte distribution width (RBC) [Ratio] 14.2 % Normal 11.0-15.0 [facility] Comment on above: Performed By: #### C BC #### [facility] [address] [place] [address] Dr. Manda York Hematocrit (Bld) [Volume fraction] 40.2 % Normal 36.0-48.0 [facility] Comment on above: Performed By: #### C BC #### [facility] [address] [place] [address] Dr. Manda York Hemoglobin (Bld) [Mass/Vol] 12.8 g/dL Normal 12.0-16.0 [facility] Comment on above: Performed By: #### C BC #### [facility] [address] [place] [address] Dr. Manda York IG # 0.02 10e3/ul Normal 0.00-0.03 [facility] Comment on above: Performed By: #### C BC #### [facility] [address] [place] [address] Dr. Manda York IG % 0.2 % Normal 0.0-0.5 [facility] Comment on above: Performed By: #### C BC #### [facility] [address] [place] [address] Dr. Manda York LYMPH # 2.5 103/ul Normal 1.2-3.[address] [facility] Comment on above: Performed By: #### C BC #### [facility] [address] [place] [address] Dr. Manda York Lymphocytes/100 WBC (Bld) 24.9 % Normal 20.5-60.0 [facility] Comment on above: Performed By: #### C BC #### [facility] [address] [place] [address] Dr. Manda York MANUAL DIFF REQ NO Normal [facility] Comment on above: Performed By: #### C BC #### [facility] [address] [place] [address] Dr. Manda York MCH (RBC) [Entitic mass] 27.9 pg Normal 26.7-34.[address] [facility] Comment on above: Performed By: #### C BC #### [facility] [address] [place] [address] Dr. Manda York MCHC (RBC) [Mass/Vol] 31.8 g/dL Normal 29.9-35.[address] [facility] Comment on above: Performed By: #### C BC #### [facility] [address] [place] [address] Dr. Manda York MCV (RBC) [Entitic vol] 87.6 fL Normal 81.0-99.[address] [facility] Comment on above: Performed By: #### C BC #### [facility] [address] [place] [address] Dr. Manda York MONO # 0.6 103/ul Normal 0.3-0.8 [facility] Comment on above: Performed By: #### C BC #### [facility] [address] [place] [address] Dr. Manda York Monocytes/100 WBC (Bld) 6.3 % Normal 1.7-12.[address] [facility] Comment on above: Performed By: #### C BC #### [facility] [address] [place] [address] Dr. Manda York NEUT # 6.5 103/ul Normal 1.4-6.[address] [facility] Comment on above: Performed By: #### C BC #### [facility] [address] [place] [address] Dr. Manda York Neutrophils/100 WBC (Bld) 65.7 % Normal 43.0-75.[address] [facility] Comment on above: Performed By: #### C BC #### [facility] [address] [place] [address] Dr. Manda York Platelet mean volume (Bld) [Entitic vol] 10.1 fL Normal 9.5-13.[address] [facility] Comment on above: Performed By: #### C BC #### [facility] [address] [place] [address] Dr. Manda York PLT 304 103/ul Normal 150-450 [facility] Comment on above: Performed By: #### C BC #### [facility] [address] [place] [address] Dr. Manda York RBC 4.59 106/ul Normal 4.20-5.40 [facility] Comment on above: Performed By: #### C BC #### [facility] [address] [place] [address] Dr. Manda York WBC 9.9 103/ul Normal 4.0-11.0 [facility] Comment on above: Performed By: #### C BC #### [facility] [address] [place] [address] Dr. Manda York PROF 14(COMP METB)on 022 Albumin [Mass/Vol] 3.7 g/dL Normal 3.4-5.0 [facility] Comment on above: Performed By: #### C BC #### [facility] [address] [place] [address] Dr. Manda York Albumin/Globulin [Mass ratio] 1.0 {ratio} Normal [facility] Comment on above: Performed By: #### C BC #### [facility] [address] [place] [address] Dr. Manda York ALP [Catalytic activity/Vol] 65 U/L Normal 46-116 [facility] Comment on above: Performed By: #### C BC #### [facility] [address] [place] [address] Dr. Manda York ALT [Catalytic activity/Vol] 35 U/L Normal 14-59 [facility] Comment on above: Performed By: #### C BC #### [facility] [address] [place] [address] Dr. Manda York Anion gap [Moles/Vol] 13.0 mmol/L Normal [facility] Comment on above: Performed By: #### C BC #### [facility] [address] [place] [address] Dr. Manda York AST [Catalytic activity/Vol] 12 U/L Critically low 15-37 [facility] Comment on above: Performed By: #### C BC #### [facility] [address] [place] [address] Dr. Manda York Bilirubin [Mass/Vol] 0.2 mg/dL Normal 0.2-1.0 [facility] Comment on above: Performed By: #### C BC #### [facility] [address] [address] [address] Manda York Calcium [Mass/Vol] 8.7 mg/dL Normal 8.5-10.1 [facility] Comment on above: Performed By: #### C BC #### [facility] [address] [place] [address] Dr. Manda York Chloride [Moles/Vol] 104 mmol/L Normal 98-107 [facility] Comment on above: Performed By: #### C BC #### [facility] [address] [place] [address] Dr. Manda York CO2 [Moles/Vol] 24.9 mmol/L Normal 21.0-32.0 [facility] Comment on above: Performed By: #### C BC #### [facility] [address] [place] [address] Dr. Manda York Creatinine [Mass/Vol] 0.77 mg/dL Normal 0.55-1.02 [facility] Comment on above: Performed By: #### C BC #### [facility] [address] [place] [address] Dr. Manda York EGFR-AF CITIZEN [place] >=60 Normal >=60 [facility] Comment on above: Performed By: #### C BC #### [facility] [address] [place] [address] Dr. Manda York EGFR-NON AF CITIZEN OF [place] >=60 Normal >=60 [facility] Comment on above: Performed By: #### C BC #### [facility] [address] [place] [address] Dr. Manda York Globulin (S) [Mass/Vol] 3.8 g/dL Normal [facility] Comment on above: Performed By: #### C BC #### [facility] [address] [address] [address] Manda York Glucose [Mass/Vol] 110 mg/dL Critically high 74-106 [facility] Comment on above: Performed By: #### C BC #### [facility] [address] [address] [address] Manda York Potassium [Moles/Vol] 3.9 mmol/L Normal 3.5-5.1 [facility] Comment on above: Performed By: #### C BC #### [facility] [address] [address] [address] Manda York Protein [Mass/Vol] 7.5 g/dL Normal 6.4-8.2 [facility] Comment on above: Performed By: #### C BC #### [facility] [address] [place] [address] Dr. Manda York Sodium [Moles/Vol] 138 mmol/L Normal 136-145 [facility] Comment on above: Performed By: #### C BC #### [facility] [address] [address] [address] Manda York Urea nitrogen [Mass/Vol] 17.0 mg/dL Normal 7.0-18.0 [facility] Comment on above: Performed By: #### C BC #### [facility] [address] [address] [address] Manda York Urea nitrogen/Creatinine [Mass ratio] 22.1 mg/mg Normal [facility] Comment on above: Performed By: #### C BC #### [facility] [address] [address] [address] Manda York [facility] SED RATE 45 mm/hr Critically high <=20 [facility] Comment on above: Performed By: #### F T4 #### [facility] [address] [address] [address] Manda York CHRISTIAN EIA W/REFLEX 5 BIOMARKER Son 10-06-2021 CHRISTIAN Direct Positive Abnormal Negative [facility] Comment on above: Performed By: #### C BC #### [facility] [address] [address] [address] Manda York Anti-DNA (DS) Ab Qn 10 IU/mL Critically high 0-9 [facility] Comment on above: Result Comment: Nega tive <5 Equivocal 5 - 9 Positive >9 Performed By: #### C BC #### [facility] [address] [address] [address] Manda York [employer]YST[employer]OGR[employer]HY TEACHER Antibodies <0.2 Normal 0.0-0.9 [facility] Comment on above: Performed By: #### C BC #### [facility] [address] [address] [address] Manda York SEE BELOW: Comment Normal [facility] Comment on above: Result Comment: [...] Sm (anti-Schneider) SLE 15 - 30% --------- CRYSTALLOGRAPHY TEACHER Mixed Connective Tissue Disease 95% (U1 nRNP, SLE 30 - 50% anti-ribonucleoprotein) Polymyositis and/or Dermatomyositis 20% --------- Scl-70 (antiDNA Scleroderma (diffuse) 20 - 35% topoisomerase) Crest 13% --------- Felicita-1 Polymyositis and/or Dermatomyositis 20 - 40% --------- Centromere B Scleroderma - Crest variant 80% Performed By: #### C BC #### [facility] [address] [place] [address] Dr. Manda Solorzanoogryaniv'lucinda Anti-SS-A <0.2 Normal 0.0-0.9 [facility] Comment on above: Performed By: #### C BC #### [facility] [address] [address] [address] Manda York Sjogren's Anti-SS-B <0.2 Normal 0.0-0.9 [facility] Comment on above: Performed By: #### C BC #### [facility] [address] [address] [address] Manda York Schneider Antibodies <0.2 Normal 0.0-0.9 [facility] Comment on above: Performed By: #### C BC #### [facility] [address] [address] [address] Manda York CMV PLASMA PCRon 10-06-2021 CMV Quant DNA PCR (Plasma) Negative Normal Negative [facility] Comment on above: Result Comment: No C MV DNA detected. The quantitative range of this assay is 200 to 1 million IU/mL. Performed By: #### C MVPL #### [facility] [address] [place] [address] Dr. Manda York log10 CMV Qn DNA Pl UPTCAL Normal [facility] Comment on above: Result Comment: Unab le to calculate result since non-numeric result obtained for component test. Performed By: #### C MVPL #### [facility] [address] [place] [address] Dr. Manda York CMV AB IGMon 2021 Cytomegalovirus (CMV) Ab, IgM 35.5 AU/mL Critically high 0.0-29.9 [facility] Comment on above: Result Comment: Nega tive <30.0 Equivocal 30.0 - 34.9 Positive >34.9 A positive result is generally indicative of acute infection, reactivation or persistent IgM production. Performed By: #### S [facility]IE [facility] #### [facility] [address] [place] [address] Dr. Manda York CMV AB, IGGon 2021 Cytomegalovirus (CMV) Ab, IgG 6.30 U/mL Critically high 0.00-0.59 [facility] Comment on above: Result Comment: Nega tive <0.60 Equivocal 0.60 - 0.69 Positive >0.69 Performed By: #### S LORIE [facility] #### [facility] [address] [place] [address] Dr. Manda York CBC AUTO DIFFon 10-03-2021 BASO # 0.1 103/ul Normal 0.0-0.1 [facility] Comment on above: Performed By: #### C BC #### [facility] [address] [place] [address] Dr. Manda York Basophils/100 WBC (Bld) 0.7 % Normal 0.2-2.0 [facility] [facility] Comment on above: Performed By: #### C BC #### [facility] [address] [place] [address] Dr. Manda York EO # 0.2 103/ul Normal 0.0-0.7 [facility] Comment on above: Performed By: #### C BC #### [facility] [address] [place] [address] Dr. Manda York Eosinophils/100 WBC (Bld) 2.0 % Normal 0.9-7.0 [facility] Comment on above: Performed By: #### C BC #### [facility] [address] [place] [address] Dr. Manda York Erythrocyte distribution width (RBC) [Ratio] 14.4 % Normal 11.0-15.0 [facility] Comment on above: Performed By: #### C BC #### [facility] [address] [place] [address] Dr. Manda York Hematocrit (Bld) [Volume fraction] 37.2 % Normal 36.0-48.0 [facility] Comment on above: Performed By: #### C BC #### [facility] [address] [place] [address] Dr. Manda York Hemoglobin (Bld) [Mass/Vol] 12.3 g/dL Normal 12.0-16.0 [facility] Comment on above: Performed By: #### C BC #### [facility] [address] [place] [address] Dr. Manda York IG # 0.02 10e3/ul Normal 0.00-0.03 [facility] Comment on above: Performed By: #### C BC #### [facility] [address] [place] [address] Dr. Manda York IG % 0.2 % Normal 0.0-0.5 [facility] Comment on above: Performed By: #### C BC #### [facility] [address] [place] [address] Dr. Manda York LYMPH # 2.1 103/ul Normal 1.2-3.8 [facility] Comment on above: Performed By: #### C BC #### [facility] [address] [place] [address] Dr. Manda York Lymphocytes/100 WBC (Bld) 26.4 % Normal 20.5-60.0 [facility] Comment on above: Performed By: #### C BC #### [facility] [address] [place] [address] Dr. Manda York MANUAL DIFF REQ NO Normal [facility] Comment on above: Performed By: #### C BC #### [facility] [address] [place] [address] Dr. Manda York MCH (RBC) [Entitic mass] 29.2 pg Normal 26.7-34.0 [facility] Comment on above: Performed By: #### C BC #### [facility] [address] [place] [address] Dr. Manda York MCHC (RBC) [Mass/Vol] 33.1 g/dL Normal 29.9-35.2 [facility] Comment on above: Performed By: #### C BC #### [facility] [address] [place] [address] Dr. Manda York MCV (RBC) [Entitic vol] 88.4 fL Normal 81.0-99.0 [facility] Comment on above: Performed By: #### C BC #### [facility] [address] [place] [address] Dr. Manda York MONO # 0.5 103/ul Normal 0.3-0.8 [facility] Comment on above: Performed By: #### C BC #### [facility] [address] [address] [address] Manda York Monocytes/100 WBC (Bld) 6.7 % Normal 1.7-12.0 [facility] Comment on above: Performed By: #### C BC #### [facility] [address] [place] [address] Dr. Manda York NEUT # 5.2 103/ul Normal 1.4-6.5 [facility] Comment on above: Performed By: #### C BC #### [facility] [address] [place] [address] Dr. Manda York Neutrophils/100 WBC (Bld) 64.0 % Normal 43.0-75.0 [facility] Comment on above: Performed By: #### C BC #### [facility] [address] [place] [address] Dr. Manda York Platelet mean volume (Bld) [Entitic vol] 10.5 fL Normal 9.5-13.5 [facility] Comment on above: Performed By: #### C BC #### [facility] [address] [place] [address] Dr. Manda York PLT 265 103/ul Normal 150-450 [facility] Comment on above: Performed By: #### C BC #### [facility] [address] [place] [address] Dr. Manda York RBC 4.21 106/ul Normal 4.20-5.[address] [facility] Comment on above: Performed By: #### C BC #### [facility] [address] [place] [address] Dr. Manda York WBC 8.1 103/ul Normal 4.0-11.[address] [facility] Comment on above: Performed By: #### C BC #### [facility] [address] [place] [address] Dr. Manda York CRPon 10-03-2021 CRP [Mass/Vol] mg/L Normal <=1.0 [facility] Comment on above: Performed By: #### F T4 #### [facility] [address] [address] [address] Manda York SED RATE [facility] 2021 SED RATE 34 mm/hr Critically high <=20 [facility] Comment on above: Performed By: #### C BC #### [facility] [address] [address] [address] Manda York CHLORIDE (POC)Ordered By: Jae Holley on 10-07-2020 Chloride [Moles/Vol] 106 mmol/L 98 - 10 7 mmol/L [employer] Phone: Catheterization and angiogra phy procedure details panelOrdered By: Jonas Holley on 10-07-2020 Cardiac Diagnostic Report Demographics Patient TERA Torres Date of Study 10/07/2020 Name Date of 1980 Gender Female Age 40 year(s) Race Room [id number]^GINO Height: 67 inch, 170.18 cm Number Corporate [id number] Weight: 234 pounds, 106.1 kg ID # Patient [id number] BSA: 2.16 m^2 BMI: 36.65 kg/m^2 Acct # MR # [id number] Performing Jonas Holley Physician Referring # Physician [...] Right coronary angiography. Contrast Material: - Isovue 55181 ml Fluoroscopy Time: Diagnostic: 2:12 minutes. Total: [...] assessed as CCS II according to the Ghanaian clinical classification. Hemodynamics Condition: Baseline Room Air [...] + + !Aortic (more content not included)... [employer] Work Phone: [facility] [employer] Incoming Cardio Results From [facility] - 10/07/2020 10:37 AM EDT Cardiac Diagnostic Report Demographics Patient TERA Torres Date of Study 10/07/2020 Name Date of 1980 Gender Female Age 40 year(s) Race Room [id number]^LEYDI^JONAS Height: 67 inch, 170.18 cm Number Corporate [id number] Weight: 234 pounds, 106.1 kg ID # Patient [id number] BSA: 2.16 m^2 BMI: 36.65 kg/m^2 Acct # MR # [id number] Performing Jonas Holley Physician Referring # Physician [...] Right coronary angiography. Contrast Material: - Isovue 21604 ml Fluoroscopy Time: Diagnostic: 2:12 minutes. Total: [...] assessed as CCS II according to the Ghanaian clinical classification. Hemodynamics Condition: Baseline Room Air [...] +--------- + + Shunts Oxygen Values O2 Pnhloaqf463.4O2 Butdkbfqdth656.52 [facility] Phone: [facility] Phone: [facility] Phone: Creatinine W/GFR Point of Ca reOrdered By: Jonas Holley on 10-07-2020 Creatinine [Mass/Vol] 0.64 mg/dL 0.51 - 1.19 mg/dL [facility] Phone: GFR Non- >60 >60 mL/min [facility] [facility] Phone: GFR/1.73 sq M.predicted MDRD (S/P/Bld) [Vol rate/Area] mL/min/{1.73_m2} >60 mL/min [facility] Phone: GFR/1.73 sq M.predicted MDRD (S/P/Bld) [Vol rate/Area] [facility] [facility] Phone: Comment on above: Average GFR for 40-4 9 years old: 99 mL/min/1.73sq m Chronic Kidney Disease: <60 mL/min/1.73sq m Kidney failure: <15 mL/min/1.73sq m eGFR calculated using average adult body mass. Additional eGFR calculator available at: http://www.[employer]/multiple_crcl_2012.htm Hemoglobin and hematocrit, b loodOrdered By: Jonas Holley on 10-07-2020 Hematocrit (Bld) [Volume fraction] 41 % 36 - 46 % [facility] Phone: Hemoglobin (Bld) [Mass/Vol] 14.0 g/dL 12.0 - 16.0 g/dL [facility] Phone: No Panel InformationOrdered By: Jonas Holley on 10-07-2020 [facility] Phone: POCT GlucoseOrdered By: Anu Holley on 10-07-2020 Glucose [Mass/Vol] 98 mg/dL 74 - 100 mg/dL [facility] Phone: POCT urine pregnancyOrdered By: Jonas Holley on 10-07-2020 Beta HCG ( test) Ql (U) Negative NEGATIVE [facility] [facility] Phone: Comment on above: Specimens with hCG l evels near the threshold of the test (25 mIU/mL) may give a negative or indeterminate result. In such cases, another test should be performed with a new specimen in 48-72 hours. If early is suspected clinically in this setting, correlation with quantitative serum b-hCG level is suggested. [facility] Phone: POTASSIUM (POC)Ordered By: Al Holley on 10-07-2020 Potassium [Moles/Vol] 3.8 mmol/L 3.5 - 4.5 mmol/L [facility] Phone: Platelet Counton 10-07-2020 Platelets (Bld) [#/Vol] 299 10*3/uL Normal 138-453 [facility] Comment on above: Performed By: #### P LT #### [email or web address] [address] [place] [address] Generator Worker: Rick Serrano MD Platelet countOrdered By: Jae Holley on 10-07-2020 Platelets (Bld) [#/Vol] 299 10*3/uL [facility] Phone: [facility] [facility] Phone: SODIUM (POC)Ordered By: Anu Holley on 10-07-2020 Sodium [Moles/Vol] 141 mmol/L 138 - 146 mmol/L [facility] [facility] Phone: Coding Summary.on 01-12-2019 Coding Summary. CODING DATE: 01/12/2019 FINAL [facility] STATUS: Home (Routine DC) PAYOR: Medicaid [...] mass index (BMI) 34.0-34.9, adult Z79.899 Other manager 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 (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 However, the narrative phrase printed from the coding software may appear abbreviated, or result in slightly different terminology. Coded By: Luz Judd Date Saved: 01/12/2019 10:25 am [facility] Coding Summary. CODING DATE: 01/12/2019 FINAL [facility] STATUS: Home (Routine DC) PAYOR: Medicaid [...] mass index (BMI) 34.0-34.9, adult Z79.899 Other manager 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 (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 However, the narrative phrase printed from the coding software may appear abbreviated, or result in slightly different terminology. Revised Coded By: Luz Judd Revised Date Saved: 01/12/2019 10:25 am [facility] XR Chest 2 Viewson 9 XR Chest [...] M.D. Transcribed by: BILL Technologist: ZOILA Normal [facility] Auto Diffon 01-11-2019 Basophils/100 WBC (Bld) 0.8 % Normal 0.0-2.0 [facility] Comment on above: Order Comment: Order Added by Discern Expert. Performed By: #### 1 [id number], 7351052, 0120392, 8015968, 72790209, 8086453, 2658025, 5386217, 1885419, 46608758, 6833004 #### [facility] [address] [place] [address] Basophils/Leukocytes Auto (Bld) [Pure # fraction] 0.1 E9/L Normal 0.0-0.2 [facility] Comment on above: Order Comment: Order Added by Discern Expert. Performed By: #### 1 [id number], 8739785, 2686370, 6442090, 27280571, 7395631, 9296000, 2424602, 4993481, 68902873, 9720535 #### [facility] [address] [place] [address] Eosinophils/100 WBC (Bld) 1.9 % Normal 0.0-8.0 [facility] Comment on above: Order Comment: Order Added by Discern Expert. Performed By: #### 1 9462605, 3065292, 2099208, 0075735, 79924493, 3659896, 9186820, 1874489, 8958474, 70227205, 1163059 #### [facility] [address] [place] [address] Eosinophils/Leukocytes Auto (Bld) [Pure # fraction] 0.1 E9/L Normal 0.0-0.5 [facility] Comment on above: Order Comment: Order Added by Discern Expert. Performed By: #### 1 2322158, 9099237, 0167661, 5260644, 62674673, 1477165, 5523733, 0045908, 6769486, 71838844, 8403611 #### [facility] [address] [place] [address] Lymphocytes/100 WBC (Bld) 28.0 % Normal 14.0-50.0 [facility] Comment on above: Order Comment: Order Added by Discern Expert. Performed By: #### 1 2752986, 0916264, 8801287, 5604996, 72702462, 3287080, 5475724, 9233336, 3539616, 26272005, 5252661 #### [facility] [address] [place] [address] Lymphocytes/Leukocytes Auto (Bld) [Pure # fraction] 2.2 E9/L Normal 1.0-4.0 [facility] Comment on above: Order Comment: Order Added by Discern Expert. Performed By: #### 1 8288944, 7740201, 9788785, 5881866, 58832390, 1346028, 9024215, 8367699, 9765093, 28788812, 6831940 #### [facility] [address] [place] [address] Monocytes/100 WBC (Bld) 7.0 % Normal 4.0-14.0 [facility] Comment on above: Order Comment: Order Added by Discern Expert. Performed By: #### 1 2752920, 4221992, 7527174, 9884635, 67933506, 3193935, 6212840, 8199532, 9777411, 17948621, 9836705 #### [facility] [address] [place] [address] Monocytes/Leukocytes Auto (Bld) [Pure # fraction] 0.6 E9/L Normal 0.2-1.0 [facility] Comment on above: Order Comment: Order Added by Discern Expert. Performed By: #### 1 5943536, 9729542, 7406810, 5610101, 15814276, 0942075, 7230702, 0222897, 3577877, 85884399, 8572287 #### [facility] [address] [place] [address] Neutrophils/100 WBC (Bld) 62.3 % Normal 36.0-75.0 [facility] Comment on above: Order Comment: Order Added by Discern Expert. Performed By: #### 1 6010871, 0202592, 5378966, 7391166, 44857301, 4834602, 9866445, 7497069, 3988272, 50752578, 4130490 #### [facility] [address] [place] [address] Neutrophils/Leukocytes Auto (Bld) [Pure # fraction] 4.9 E9/L Normal 2.0-7.5 [facility] Comment on above: Order Comment: Order Added by Discern Expert. Performed By: #### 1 0844602, 3166233, 0181404, 6154889, 74314113, 8008324, 2676566, 1616446, 9690230, 03484879, 0111672 #### [facility] [address] [place] [address] BMPon 01-11-2019 Creatinine [Mass/Vol] 0.7 mg/dL Normal 0.5-1.3 [facility] Comment on above: Performed By: #### 1 7191773, 4624527, 7423848, 2244406, 28528798, 8252229, 0462468, 8962151, 9449011, 74128284, 4377178 #### [facility] [address] [place] [address] Urea nitrogen [Mass/Vol] 11 mg/dL Normal 5-21 [facility] Comment on above: Performed By: #### 1 8250814, 6243401, 9681147, 4978064, 25401871, 9067071, 2762375, 8076240, 5755674, 30870099, 0495691 #### [facility] [address] [place] [address] Urea nitrogen/Creatinine [Mass ratio] 16 No Units Normal 10-20 [facility] Comment on above: Performed By: #### 1 4366124, 0352452, 9261698, 8561581, 68262132, 6662028, 6227844, 6553637, 2026334, 87218141, 5894056 #### [facility] [address] [place] [address] Anion gap [Moles/Vol] 14 mmol/L Normal 6-16 [facility] Comment on above: Performed By: #### 1 3528371, 2698276, 5952863, 8666448, 69257200, 8624076, 0530486, 5233996, 6772798, 60088726, 3843872 #### [facility] [address] [place] [address] Calcium [Mass/Vol] 8.9 mg/dL Normal 8.9-11.1 [facility] Comment on above: Performed By: #### 1 3825619, 8630376, 9904228, 4430568, 64068667, 9454353, 1544510, 2240429, 1652112, 23606214, 4638542 #### [facility] [address] [place] [address] Chloride [Moles/Vol] 107 mmol/L Normal 101-111 [facility] Comment on above: Performed By: #### 1 7159535, 1265765, 9963052, 7169819, 10017874, 7374081, 0737735, 0286160, 5633018, 72375997, 3612533 #### [facility] [address] [place] [address] CO2 [Moles/Vol] 22 mmol/L Normal 21-31 [facility] Comment on above: Performed By: #### 1 5052580, 0740611, 4284414, 5439898, 45752763, 4102417, 6476273, 8689518, 8342408, 76216872, 5295208 #### [facility] [address] [place] [address] Glucose [Mass/Vol] 122 mg/dL Normal 55-199 [facility] Comment on above: Result Comment: If t his glucose result represents a fasting glucose, interpretation should refer to the following reference range: 55-99 mg/dL Performed By: #### 1 6226943, 4362409, 0143032, 1789934, 02967045, 7583670, 1821296, 9748014, 1467507, 01992833, 3927824 #### [facility] [address] [place] [address] Potassium [Moles/Vol] 3.8 mmol/L Normal 3.5-5.3 [facility] Comment on above: Performed By: #### 1 8644655, 7119614, 3801299, 8374470, 51004287, 4950285, 5249600, 4624593, 9297956, 90376324, 1321348 #### [facility] [address] [place] [address] Sodium [Moles/Vol] 139 mmol/L Normal 135-145 [facility] Comment on above: Performed By: #### 1 5341093, 8786901, 9221585, 6455043, 69669597, 3180062, 2267793, 5403116, 9001499, 61292289, 1599092 #### [facility] [address] [place] [address] CBC w/ Auto Diffon 9 Erythrocyte distribution width (RBC) [Ratio] 14.0 % Normal 10.9-14.2 [facility] Comment on above: Performed By: #### 1 5032107, 3991702, 5179892, 9324032, 64673475, 1663348, 2616780, 9639540, 3172467, 66015099, 6645467 #### [facility] [address] [place] [address] Hematocrit (Bld) [Volume fraction] 39.9 % Normal 34.0-46.0 [facility] Comment on above: Performed By: #### 1 6339090, 1931269, 8395203, 2942508, 84314675, 8339010, 4865382, 2735559, 3213540, 96164660, 1055270 #### [facility] [address] [place] [address] Hemoglobin (Bld) [Mass/Vol] 13.5 g/dL Normal 12.0-16.0 [facility] Comment on above: Performed By: #### 1 0691735, 7831057, 5343022, 7262344, 88439149, 1058118, 5515079, 6286098, 4851166, 38104328, 5950112 #### [facility] [address] [place] [address] MCH (RBC) [Entitic mass] 29.4 pg Normal 27.0-34.0 [facility] Comment on above: Performed By: #### 1 6905794, 1288215, 5304478, 8815514, 60496121, 1541819, 5189499, 0632484, 4405865, 56545823, 9886839 #### [facility] [address] [place] [address] MCHC (RBC) [Mass/Vol] 33.7 g/dL Normal 33.3-35.7 [facility] Comment on above: Performed By: #### 1 1322851, 7914987, 6914012, 4923288, 17404693, 4736983, 5358291, 4252984, 0398581, 86153996, 1000807 #### [facility] [address] [place] [address] MCV (RBC) [Entitic vol] 87.4 fL Normal 80.0-100.0 [facility] Comment on above: Performed By: #### 1 1971535, 9817234, 5299451, 3202080, 28549839, 8225577, 7240231, 6525538, 1925234, 36163105, 2329687 #### [facility] [address] [place] [address] Platelet mean volume (Bld) [Entitic vol] 8.5 fL Normal 6.4-10.8 [facility] Comment on above: Performed By: #### 1 2526086, 9279372, 7172419, 8990696, 85826205, 8745315, 0267666, 7211106, 7348441, 19265038, 1479220 #### [facility] [address] [place] [address] Platelets (Bld) [#/Vol] 244.0 E9/L Normal 150.0-500.0 [facility] Comment on above: Performed By: #### 1 5831722, 1827898, 2221219, 2668069, 40136376, 2104347, 3734803, 0464818, 6641309, 78481753, 6383060 #### [facility] [address] [place] [address] RBC (Bld) [#/Vol] 4.6 E12/L Normal 4.3-5.9 [facility] Comment on above: Performed By: #### 1 4589672, 7308677, 8728837, 5624953, 08947482, 8095030, 3094468, 2438284, 4643025, 81810451, 6168630 #### [facility] [address] [place] [address] WBC corrected for nucl RBC Auto (Bld) [#/Vol] 7.9 E9/L Normal 4.0-11.0 [facility] Comment on above: Performed By: #### 1 7889660, 1980099, 3648768, 9373676, 80153596, 3138152, 1695416, 1350813, 4983548, 19407967, 4930144 #### [facility] [address] [place] [address] D-Dimeron 01-11-2019 Fibrin D-dimer FEU (PPP) [Mass/Vol] 265 ng/mL Normal 215-500 [facility] Comment on above: Result Comment: This D-Dimer [...] infections Liver cirrhosis Performed By: #### 1 7150330, 6566984, 7147049, 5227250, 64759609, 7194509, 7740411, 2724518, 6111117, 17730357, 1073431 #### [facility] [address] [place] [address] ED Clinical Summaryon 2018 ED Clinical Summary [address] [address] ED Clinical Summary Person Information Name: ARIADNA HALEY [facility] Age: 38 Years : 1980 12:00 AM Sex: Female Language: Azerbaijani PCP: Charles Nicole DO Marital Status: Single Phone: [phone] Visit Id: Visit Reason: Chest pain; CHEST [...] 01/11/2019 6:42 PM 01/11/2019 6:42 PM ADDRESS: [address] [place] [address] [id number] PHYS DOC NOTES: MEDICAL INFORMATION: Prescriptions Given: PATIENT EDUCATION INFORMATION: Instructions: Smoking Cessation; Chest Pain (Nonspecific) Follow up: With: Address: When: [address] [phone] Business (1) Within 2 to 3 days Comments: Return to ED if symptoms worsen DIAGNOSIS: 1:Chest pain Normal [facility] ED Note-Physicianon 01-12-20 ED Note-Physician Basic Information [...] prescription medications Follow-up With When Contact Information [facility] Within 2 to [address] [place] [address] [facility] (1) Additional Instructions: Return to [...] Lymph Auto: 28 % (01/11/19 16:46:00 EDT) [place] Auto: 7 % (01/11/19 16:46:00 EDT) Eos Auto: 1.9 % (01/11/19 16:46:00 EDT) Basophil Auto: 0.8 % (01/11/19 16:46:00 EDT) Neutro Absolute: 4.9 E9/L (01/11/19 16:46:00 EDT) Lymph Absolute: 2.2 E9/L (01/11/19 16:46:00 EDT) [place] Absolute: 0.6 E9/L (01/11/19 16:46:00 EDT) Eos [...] Results EC01/11/19: SINUS RHYTHM RATE 84, NORMAL [place] AND QRS, NO ST ELEVATION OR DEPRSSION, NORMAL AXIS, NORMAL QTC NORMAL ECG Signed By: Orin Browne DO 01/11/2019 15:54:18 Normal [facility] Comment on above: Result Comment: Elec tronically [...] and skin patches. Some may be available [id number] and others require a prescription. ? Antidepressant [...] Document Reviewed: 08/18/2012 ExitCare? Patient Information ?2014 [employer]. This information is not intended to replace [...] Document Reviewed: 12/13/2008 ExitCare? Patient Information ?2014 [employer]. This information is not intended to replace advice given to you by your health care provider. Make sure you discuss any questions you have with your health care provider. Normal [facility] ED Patient Summaryon 019 ED Patient Summary [address] [address] Patient Discharge Instructions Person Information Name: ARIADNA HALEY Age: 38 Years Arrival Date: 01/11/2019 3:44 PM Discharge Diagnosis: 1:Chest pain Primary Care Physician: Charles Nicole DO Provider Information Primary Provider: Orin Browne DO Advanced Drop Machine Operator:None The exam and treatment you received in the Emergency Department were for an urgent problem and are not intended as complete care. It is important that you follow up with a doctor, nurse practitioner, or physician?s campaign assistant for ongoing care. If your symptoms become worse or you do not improve as expected and you are unable to reach your usual health care provider, you should return to the Emergency Department. We are available 24 hours a day. ARIADNA HALEY has been given the following list of patient education materials, prescriptions and follow-up instructions: Follow-up Instructions: With: Address: When: Charles Nicole [address] [place], [place] [phone] Business (1) Within 2 to 3 days [...] opioids can be used to help relieve wqogdngs-gl-lwmsxf pain and are often prescribed following a [...] be struggling with addiction, tell your health anesthesiologist and critical care and ask for guidance or call [email or web address] at 3-582-017-SQTP. v Source: [place] Department of Health and Human Services/Center for Disease Control & Prevention [facility] Medications Given: Medication Dose Route No medications found. Medication Information: Medications to Continue with No Changes Other Medications metformin (metformin 500 mg ER Tab) 250 Milligram By Mouth 2 times a day. Comment: Pharmacy Information: Thank you for choosing [facility] Patient Education Materials: Smoking Cessation Quitting smoking [...] and skin patches. Some may be available [id number]-[id number] and others require a prescription. ? Antidepressant [...] Document Reviewed: 08/18/2012 ExitCare? Patient Information ?2014 [employer]. This information is not intended to replace [...] Document Reviewed: 12/13/2008 ExitCare? Patient Information ?2014 [employer]. This information is not intended to replace advice given to you by your health care provider. Make sure you discuss any questions you have with your health care provider. TERA Dorantes NICOLE B , have received the following patient education materials/instruction s and have verbalized understanding: Patient Education Materials: Smoking Cessation; Chest Pain (Nonspecific) Follow-up Instructions: With: Address: When: [place] [address] [facility] () Within 2 to 3 days Comments: Return to ED if symptoms worsen Prescriptions: Patient Signature Date Clinician/Nurse Signature Date 01/11/19 18:42:28 Normal [facility] Progress Note-Nurseon 2018 Progress Note-Nurse Pt explained discharge instructions and voiced understanding. Pt sts she will follow up with her PCP and denies any furthe questions at this time. Normal [facility] Troponin 0 Hr.on 01-11-2019 Troponin I.cardiac [Mass/Vol] ng/mL Normal <=0.03 [facility] Comment on above: Result Comment: New Troponin Assay 10/05/13 KRISHNA DC Cutoff value > or = 0.03 ng/mL in conjunction with clinical conditions of myocardial infarction. (www.escardio.org/guidelines) Performed By: #### 1 4452918, 3450044, 9494225, 4328551, 15465458, 4098112, 2762415, 8687213, 9675685, 08285110, 6552536 #### [facility] [address] [place] [address] eGFRon 01-11-2019 GFR/1.73 sq M predicted among blacks MDRD (S/P/Bld) [Vol rate/Area] mL/min/{1.73_m2} Normal >=59 [facility] Comment on above: Order Comment: Order added by Discern Expert. Result Comment: eGFR is race adjusted. AA=. Performed By: #### 1 3715061, 1410044, 3701425, 2235788, 88825396, 2853511, 8366940, 0555572, 3127662, 50779812, 1996119 #### [facility] [address] [place] [address] GFR/1.73 sq M predicted among non-blacks MDRD (S/P/Bld) [Vol rate/Area] mL/min/{1.73_m2} Normal >=59 [facility] Comment on above: Order Comment: Order added by Discern Expert. Result Comment: Assistant Professor Surgical Technology anthony kidney disease could be indicated at eGFR's of less than 60 mL/min/1.73m2. Kidney failure is indicated at less than 15 mL/min/1.73m2. Performed By: #### 1 7565847, 6930849, 9735292, 7204231, 08689069, 9605201, 3457843, 6772449, 0223263, 33459697, 7124825 #### [facility] [address] [place] [address] SPINE, LUMBOSACRAL CMPLT(TOOTIE DING)on 12-05-2018 SPINE, LUMBOSACRAL CMPLT(BENDING) Patient Name: ARIADNA HALEY STUDY: SPINE, LUMBOSACRAL; CMPLT(BENDING); 12/05/2018 1:47 pm INDICATION: LUMBAR XR. COMPARISON: None. ACCESSION NUMBER(S): [id number] ORDERING CLINICIAN: KADE RICHARDOSN FINDINGS: No lumbar spine fracture. Scattered small endplate osteophytes. Vertebral body and disc space heights are are maintained. 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 No spondylolisthesis. No instability on flexion or extension. IMPRESSION: Degenerative changes of the lumbar spine without instability. Electronically signed by: EARNESTINE MANUEL MD Normal [facility] Coding Summary.on 09-15-2018 Coding Summary. CODING DATE: 09/15/2018 FINAL [facility] STATUS: Home (Routine DC) PAYOR: Medicaid [...] F17.210 Nicotine dependence, cigarettes, uncomplicated Z79.899 Other manager 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 (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 However, the narrative phrase printed from the coding software may appear abbreviated, or result in slightly different terminology. Coded By: Luz Judd Date Saved: 09/15/2018 07:15 am Normal [facility] Auto Diffon 09-14-2018 Basophils/100 WBC (Bld) 0.6 % Normal 0.0-2.0 [facility] Comment on above: Order Comment: Order Added by Discern Expert. Performed By: #### 1 7668029, 3942712, 9834340, 6680935, 51557176, 3371095, 1277420, 7327139, 5981458, 05633521, 4658540 #### [facility] [address] [place] [address] Basophils/Leukocytes Auto (Bld) [Pure # fraction] 0.1 E9/L Normal 0.0-0.2 [facility] Comment on above: Order Comment: Order Added by Discern Expert. Performed By: #### 1 6453158, 8266579, 5305191, 0181899, 90332138, 6751121, 6431230, 8364417, 4289939, 45436649, 5100449 #### [facility] [address] [place] [address] Eosinophils/100 WBC (Bld) 2.2 % Normal 0.0-8.0 [facility] Comment on above: Order Comment: Order Added by Discern Expert. Performed By: #### 1 1426586, 3832786, 1004834, 9538156, 42912824, 8780810, 5807479, 6903247, 4905396, 54732576, 1211444 #### [facility] [address] [place] [address] Eosinophils/Leukocytes Auto (Bld) [Pure # fraction] 0.2 E9/L Normal 0.0-0.5 [facility] Comment on above: Order Comment: Order Added by Discern Expert. Performed By: #### 1 2156425, 1647633, 9142727, 7864183, 86078727, 7111768, 8013094, 9321106, 9103682, 69919767, 7760101 #### [facility] [address] [place] [address] Lymphocytes/100 WBC (Bld) 30.6 % Normal 14.0-50.0 [facility] Comment on above: Order Comment: Order Added by Discern Expert. Performed By: #### 1 1722001, 6721749, 4303334, 1752759, 48902375, 6789033, 3345630, 4523858, 6397793, 54056018, 8029351 #### [facility] [address] [place] [address] Lymphocytes/Leukocytes Auto (Bld) [Pure # fraction] 3.0 E9/L Normal 1.0-4.0 [facility] Comment on above: Order Comment: Order Added by Discern Expert. Performed By: #### 1 2853706, 5105348, 3627435, 9305215, 12431467, 9768410, 2419139, 3574636, 7551148, 87538778, 3546614 #### [facility] [address] [place] [address] Monocytes/100 WBC (Bld) 7.2 % Normal 4.0-14.0 [facility] Comment on above: Order Comment: Order Added by Discern Expert. Performed By: #### 1 8253913, 7203238, 2425389, 4959030, 72454040, 7620798, 1822590, 3337983, 8768580, 43004591, 9867745 #### [facility] [address] [place] [address] Monocytes/Leukocytes Auto (Bld) [Pure # fraction] 0.7 E9/L Normal 0.2-1.0 [facility] Comment on above: Order Comment: Order Added by Discern Expert. Performed By: #### 1 0104954, 5409167, 4472877, 5747947, 36136879, 6103513, 4078198, 0166828, 1259464, 31093195, 0614345 #### [facility] [address] [place] [address] Neutrophils/100 WBC (Bld) 59.4 % Normal 36.0-75.0 [facility] Comment on above: Order Comment: Order Added by Discern Expert. Performed By: #### 1 6495055, 4183639, 3336277, 8715928, 15410866, 1189289, 5382984, 6682396, 5546772, 43405645, 6226550 #### [facility] [address] [place] [address] Neutrophils/Leukocytes Auto (Bld) [Pure # fraction] 5.9 E9/L Normal 2.0-7.5 [facility] Comment on above: Order Comment: Order Added by Discern Expert. Performed By: #### 1 4942484, 7042308, 3203403, 5626242, 37003955, 8284791, 7321984, 4747868, 2319191, 73764403, 3808243 #### [facility] [address] [place] [address] BMPon 09-14-2018 Creatinine [Mass/Vol] 0.6 mg/dL Normal 0.5-1.3 [facility] Comment on above: Performed By: #### 1 3609922, 5019309, 6123893, 4897277, 36689686, 4349428, 3258719, 4505487, 6895860, 83734488, 1889697 #### [facility] [address] [place] [address] Urea nitrogen [Mass/Vol] 15 mg/dL Normal 5-21 [facility] Comment on above: Performed By: #### 1 7203578, 6684713, 7265925, 4574671, 55667485, 3089317, 2908515, 9338298, 8091554, 21994506, 9644097 #### [facility] [address] [place] [address] Urea nitrogen/Creatinine [Mass ratio] 25 No Units High 10-20 [facility] Comment on above: Performed By: #### 1 4833885, 7086480, 4447826, 4281128, 03588883, 0326711, 9022334, 7642441, 8472797, 61916330, 5036509 #### [facility] [address] [place] [address] Anion gap [Moles/Vol] 13 mmol/L Normal 6-16 [facility] Comment on above: Performed By: #### 1 9379153, 5200343, 2573131, 4234330, 78710474, 6611257, 2474163, 4878209, 0517805, 81829216, 4351883 #### [facility] [address] [place] [address] Calcium [Mass/Vol] 9.5 mg/dL Normal 8.9-11.1 [facility] Comment on above: Performed By: #### 1 9737969, 1345754, 7341163, 7925783, 01943752, 6010334, 5254275, 1214055, 2291128, 28943028, 4228479 #### [facility] [address] [place] [address] Chloride [Moles/Vol] 103 mmol/L Normal 101-111 [facility] Comment on above: Performed By: #### 1 4896805, 9346648, 3648088, 7623562, 37563417, 3868519, 4899853, 9020123, 3228480, 00701812, 3250222 #### [facility] [address] [place] [address] CO2 [Moles/Vol] 24 mmol/L Normal 21-31 [facility] Comment on above: Performed By: #### 1 4291630, 2392831, 4838349, 4977322, 78209437, 7071696, 9281770, 9130507, 9380261, 24580135, 9328310 #### [facility] [address] [place] [address] Glucose [Mass/Vol] 102 mg/dL Normal 55-199 [facility] Comment on above: Result Comment: If t his glucose result represents a fasting glucose, interpretation should refer to the following reference range: 55-99 mg/dL Performed By: #### 1 1514601, 4396578, 5110702, 3812659, 19699915, 9753006, 2151093, 0195325, 8046731, 64308703, 8242008 #### [facility] [address] [place] [address] Potassium [Moles/Vol] 3.6 mmol/L Normal 3.5-5.3 [facility] Comment on above: Performed By: #### 1 1774360, 6232816, 6190173, 1989958, 86172943, 6730096, 8283794, 2969729, 0868902, 84908992, 3435890 #### [facility] [address] [place] [address] Sodium [Moles/Vol] 136 mmol/L Normal 135-145 [facility] Comment on above: Performed By: #### 1 0171388, 1213997, 6294469, 0332617, 73876700, 0468750, 9092916, 3783889, 8548014, 29053500, 9287004 #### [facility] [address] [place] [address] CBC w/ Auto Diffon Erythrocyte distribution width (RBC) [Ratio] 14.2 % Normal 10.9-14.2 [facility] Comment on above: Performed By: #### 1 7314079, 0585392, 3688729, 1304431, 71000502, 3465471, 8882910, 0773011, 9201219, 55242300, 3457451 #### [facility] [address] [place] [address] Hematocrit (Bld) [Volume fraction] 39.4 % Normal 34.0-46.0 [facility] Comment on above: Performed By: #### 1 3295780, 1583951, 7456185, 2533163, 17645203, 4472280, 6247581, 6989926, 8551817, 60609571, 8663785 #### [facility] [address] [place] [address] Hemoglobin (Bld) [Mass/Vol] 13.3 g/dL Normal 12.0-16.0 [facility] Comment on above: Performed By: #### 1 0605854, 0442056, 1623033, 7053979, 58766745, 4260446, 8335729, 1964923, 6632960, 38176802, 4818830 #### [facility] [address] [place] [address] MCH (RBC) [Entitic mass] 29.2 pg Normal 27.0-34.0 [facility] Comment on above: Performed By: #### 1 5924500, 2566042, 1209042, 4058764, 12039267, 3211163, 7208814, 5969398, 4103865, 61047353, 7335190 #### [facility] [address] [place] [address] MCHC (RBC) [Mass/Vol] 33.8 g/dL Normal 33.3-35.7 [facility] Comment on above: Performed By: #### 1 8700576, 8366124, 0772844, 5089762, 98801295, 3985498, 5714528, 5984803, 3775176, 37759246, 7752374 #### [facility] [address] [place] [address] MCV (RBC) [Entitic vol] 86.6 fL Normal 80.0-100.0 [facility] Comment on above: Performed By: #### 1 1945398, 4349129, 2349633, 9407469, 72562851, 8520794, 9248431, 1970794, 4556415, 83734687, 7674105 #### [facility] [address] [place] [address] Platelet mean volume (Bld) [Entitic vol] 8.8 fL Normal 6.4-10.8 [facility] Comment on above: Performed By: #### 1 4616987, 0114903, 6317811, 6169254, 89358435, 9668854, 2942772, 0282975, 7030271, 39912425, 1441087 #### [facility] [address] [place] [address] Platelets (Bld) [#/Vol] 307.0 E9/L Normal 150.0-500.0 [facility] Comment on above: Performed By: #### 1 1772206, 4464494, 7937474, 1106425, 06843822, 4354941, 3437811, 9174075, 8761391, 74403432, 8932889 #### [facility] [address] [place] [address] RBC (Bld) [#/Vol] 4.6 E12/L Normal 4.3-5.9 [facility] Comment on above: Performed By: #### 1 1245297, 8798375, 8603182, 1267593, 40318128, 1626658, 1061281, 0146777, 6737369, 39234651, 7627734 #### [facility] [address] [place] [address] WBC corrected for nucl RBC Auto (Bld) [#/Vol] 9.9 E9/L Normal 4.0-11.0 [facility] Comment on above: Performed By: #### 1 3591225, 7973453, 6542112, 4125301, 17613561, 9348843, 0769973, 2143994, 0991240, 23472451, 0060382 #### [facility] [address] [place] [address] CKon 09-14-2018 CK [Catalytic activity/Vol] 53 Int._Unit/L Normal 14-261 [facility] Comment on above: Performed By: #### 1 4575879, 5271168, 0242366, 3948752, 36818709, 4953851, 1327216, 1946912, 0720871, 39818096, 2763812 #### [facility] [address] [place] [address] ED Clinical Summaryon 2018 ED Clinical Summary [address] [address] ED Clinical Summary Person Information Name: ARIADNA HALEY [place] Age: 37 Years : 1980 12:00 AM Sex: Female Language: Azerbaijani PCP: Charles Nicole DO Marital Status: Single Phone: [phone] Visit Id: Visit Reason: Anxiety; Paraesthesia; NUMBNESS [...] 09/14/2018 12:17 AM 09/14/2018 12:17 AM ADDRESS: [address] [place] [address] [place] [id number] PHYS DOC NOTES: MEDICAL INFORMATION: Prescriptions Given: Prescription Display gabapentin (gabapentin 100 mg Cap) 100 mg = 1 cap(s), Oral, Daily, X 7 day(s), # 7 cap(s), Refills(s) 0, Pharmacy: [facility] gabapentin (gabapentin 100 mg Cap) 100 mg = 1 cap(s), Oral, Daily, X 7 day(s), # 7 cap(s), Refills(s) 0, Pharmacy: [facility]/pharmacy #6177 magnesium oxide (magnesium oxide 400 mg Tab) 400 mg = 1 tab(s), Oral, Daily, X 7 day(s), # 7 tab(s), Refills(s) 0, [facility] magnesium oxide (magnesium oxide 400 mg Tab) 400 mg = 1 tab(s), Oral, Daily, X 7 day(s), # 7 tab(s), Refills(s) 0, Pharmacy: [facility]/pharmacy #6177 Home Meds Display metformin (metformin 500 mg ER Tab) 250 mg, Oral, BID, Refills(s) 0 PATIENT EDUCATION INFORMATION: Instructions: Paresthesia, Yyza-nh-Iyzt; Restless Legs Syndrome Follow up: With: [facility]: [facility] [address] [address] Business (1) Within 1 to 2 days Comments: neurologist you may also follow up with him With: Address: When: Charles Nicole [address] [place] [address] Business (1) Within 1 to 2 days Comments: Return to ED if symptoms worsen DIAGNOSIS: 1:Restless leg syndrome Normal [facility] ED Note-Nursingon 09-14-2018 ED Note-Nursing Pt up to RR, gait steady. Normal [facility] ED Note-Nursing Aware of need for urine specimen, denies urge at present, states will notify when able to produce sample, will monitor. Normal [facility] ED Note-Physicianon 09-15-19 19 ED Note-Physician Basic Information Time Seen: Darell Génesis 09/13/2018 22:45 Chief Complaint C/o bilateral lower [...] day(s), # 7 cap(s), Refills(s) 0, Pharmacy: [facility]/pharmacy #6177 magnesium oxide, 400 mg = 1 tab(s), Oral, Daily, X 7 day(s), # 7 tab(s), Refills(s) 0, Pharmacy: [facility] Sodium Chloride 0.9% intravenous solution 1,000 [...] Sayda Kelley Within 1 to 2 days [facility] [address] [place] [address]- Business (1) Additional Instructions: neurologist you may also follow up with him Charles Nicole Within 1 to 2 days [address] [place] [address]- Business (1) Additional Instructions: Return to ED if symptoms worsen Patient Education Paresthesia, Pqso-ys-Pozv Restless Legs Syndrome Problem List/Past Medical History [...] Lymph Auto: 30.6 % (09/13/18 23:03:00 EDT) [place] Auto: 7.2 % (09/13/18 23:03:00 EDT) Eos Auto: 2.2 % (09/13/18 23:03:00 EDT) Basophil Auto: 0.6 % (09/13/18 23:03:00 EDT) Neutro Absolute: 5.9 E9/L (09/13/18 23:03:00 EDT) Lymph Absolute: 3 E9/L (09/13/18 23:03:00 EDT) [place] Absolute: 0.7 E9/L (09/13/18 23:03:00 EDT) Eos [...] Diagnostic Results No qualifying data available. Normal [facility] Comment on above: Result Comment: Elec tronically [...] Document Reviewed: 01/29/2012 ExitCare? Patient Information ?2015 [employer]. This information is not intended to replace [...] ? Drawing. ? Crawling. ? [place]orming. ? [place]. ? Tingling. ? Pins and needles. ? [...] Document Reviewed: 08/06/2011 ExitCare? Patient Information ?2015 [employer]. This information is not intended to replace advice given to you by your health care provider. Make sure you discuss any questions you have with your health care provider. Normal [facility] ED Patient Summaryon 019 ED Patient Summary [address] [address] Patient Discharge Instructions Person Information Name: ARIADNA HALEY Age: 37 Years Arrival Date: 09/13/2018 10:16 PM Discharge Diagnosis: 1:Restless leg syndrome Primary Care Physician: Charles Nicole DO Provider Information Primary Provider: Génesis Lozoya DO Advanced Drop Machine Operator:None The exam and treatment you received in the Emergency Department were for an urgent problem and are not intended as complete care. It is important that you follow up with a doctor, nurse practitioner, or physician?s campaign assistant for ongoing care. If your symptoms [...] Follow-up Instructions: With: Address: When: Sayda Kelley [facility], [address] [place] [address] Business (1) Within 1 to 2 days Comments: neurologist you may also follow up with him With: Address: When: Charles Nicole [address] [place] [address] Business (1) Within 1 to 2 days Comments: Return to ED if symptoms worsen In the event that this physician does not participate in your insurance network, please consult with your insurance company to find a nearby participating provider. Patient Education Materials: Paresthesia, Feqf-no-Guer; Restless Legs Syndrome A MESSAGE TO ALL PATIENTS REGARDING OPIOIDS PRESCRIPTION OPIOIDS: WHAT YOU NEED TO KNOW Prescription opioids can be used to help relieve whsmujdy-ll-wklzfp pain and are often prescribed following a [...] be struggling with addiction, tell your health anesthesiologist and critical care and ask for guidance or call [facility]?S National Helpline at 4-769-370-SNNL. o Source: [place] Department of Health and Human Services/Center for Disease Control & Prevention [facility] Medications Given: Medication Dose Route Sodium Chloride 0.9% intravenous solution 1000.00 mL Initial Volume 1000.00 mL/hr IV Piggyback Left Mid Forearm Medication Information: New Medications [id number], [address], [place] [id number], [phone] gabapentin (gabapentin 100 mg Cap) 1 Capsules By Mouth every day for 7 Days. Refills: 0. magnesium oxide (magnesium oxide 400 mg Tab) 1 Tabs By Mouth every day for 7 Days. Refills: 0. [facility], [address], [place] [id number], [phone] gabapentin (gabapentin 100 mg Cap) 1 Capsules By Mouth every day for 7 Days. Refills: 0. magnesium oxide (magnesium oxide 400 mg Tab) 1 Tabs By Mouth every day for 7 Days. Refills: 0. Medications to Continue with No Changes Other Medications metformin (metformin 500 mg ER Tab) 250 Milligram By Mouth 2 times a day. Comment: Pharmacy Information: Thank you for choosing [facility] Patient Education Materials: Paresthesia Paresthesia is a [...] Document Reviewed: 01/29/2012 ExitCare? Patient Information ?2015 [employer]. This information is not intended to replace [...] ? Drawing. ? Crawling. ? Worming. ? [place]. ? Tingling. ? Pins and needles. ? [...] Document Reviewed: 08/06/2011 ExitCare? Patient Information ?2015 [employer]. This information is not intended to replace advice given to you by your health care provider. Make sure you discuss any questions you have with your health care provider. TERA Dorantes NICOLE B , have received the following patient education materials/instruction s and have verbalized understanding: Patient Education Materials: Paresthesia, Xslm-ea-Sqnd; Restless Legs Syndrome Follow-up Instructions: With: Address: When: Syada Kelley [facility], [address] [place] [address] Business (1) Within 1 to 2 days Comments: neurologist you may also follow up with him With: Address: When: [address] [place] [address] [facility] (1) Within 1 to 2 days Comments: Return to ED if symptoms worsen Prescriptions: [gabapentin (gabapentin 100 mg Cap)] [gabapentin (gabapentin 100 mg Cap)] [magnesium oxide (magnesium oxide 400 mg Tab)] [magnesium oxide (magnesium oxide 400 mg Tab)] Patient Signature Clinician/Nurse Signature Date 09/14/18 00:21:38 Normal [facility] Hep Func Panelon 09-14-2018 Bilirubin.direct [Mass/Vol] UTC Abnormal 0.1-0.9 [facility] Comment on above: Result Comment: Resu lt verified by Discern Rule. Performed result UTC (Unable to Calculate) was sent as an Alpha code due the inability to calculate a valid numeric value. Performed By: #### 1 7327256, 5596849, 7357796, 8460457, 46671379, 1394800, 0856001, 1011260, 3677215, 24679428, 3410486 #### [facility] [address] [place] [address] Albumin [Mass/Vol] 1.1 g/dL Normal 1.1-2.2 [facility] Comment on above: Performed By: #### 1 5582499, 7681928, 1062475, 6490032, 97242203, 7234829, 6519083, 1843860, 7095488, 32879624, 0028393 #### [facility] [address] [place] [address] Albumin [Mass/Vol] 4.1 g/dL Normal 3.3-5.0 [facility] Comment on above: Performed By: #### 1 3905567, 7515443, 8676971, 8124389, 96256067, 5053933, 0467358, 7725752, 7983141, 02591366, 7886273 #### [facility] [address] [place] [address] ALP [Catalytic activity/Vol] 69 Int._Unit/L Normal 21-98 [facility] Comment on above: Performed By: #### 1 6059264, 7537357, 8848079, 2194861, 36958905, 2833434, 0751453, 9402865, 0966279, 68961056, 6584001 #### [facility] [address] [place] [address] ALT No additional P-5'-P [Catalytic activity/Vol] 27 Int._Unit/L Normal 6-46 [facility] Comment on above: Performed By: #### 1 1403903, 4334695, 9277973, 3923076, 73237088, 3326180, 9310499, 1204000, 8561335, 56297750, 6184487 #### [facility] [address] [place] [address] AST [Catalytic activity/Vol] 16 Int._Unit/L Normal 5-43 [facility] Comment on above: Performed By: #### 1 0858694, 9866979, 1871789, 2701941, 56081860, 9611665, 3073025, 1107970, 6660452, 70241700, 2140188 #### [facility] [address] [place] [address] Bilirubin [Mass/Vol] 0.5 mg/dL Normal 0.0-1.1 [facility] Comment on above: Performed By: #### 1 9576917, 2478514, 0606710, 2703791, 90893313, 8162647, 2617414, 8270199, 9699712, 90092201, 5600753 #### [facility] [address] [place] [address] Bilirubin.direct [Mass/Vol] mg/dL Normal 0.1-0.4 [facility] Comment on above: Performed By: #### 1 9085522, 3155124, 2697548, 8508858, 88776350, 6735387, 1642589, 0142794, 4761724, 97879930, 0286297 #### [facility] [address] [place] [address] Globulin (S) [Mass/Vol] 3.7 g/dL Normal 1.4-4.0 [facility] Comment on above: Performed By: #### 1 1045803, 6019490, 3744981, 2840804, 20067649, 6969793, 8858365, 5630667, 3245650, [id number], [id number] #### [facility] [address] [place] [address] Protein [Mass/Vol] 7.8 g/dL Normal 6.0-7.8 [facility] Comment on above: Performed By: #### 1 [id number], 2977262, 2879022, 2720387, 57932702, 3526359, 1329266, 1019275, 7407009, 29838996, 8035276 #### [facility] [address] [place] [address] Magnesiumon 09-14-2018 Magnesium [Mass/Vol] 1.9 mg/dL Normal 1.3-2.4 [facility] Comment on above: Performed By: #### 1 [id number], 7015729, 6253865, 0277126, 51870410, 5743331, 6409326, 2494190, 4640572, 78896350, 8861286 #### [facility] [address] [place] [address] Myoglobinon 09-14-2018 Myoglobin [Mass/Vol] 9 ng/mL Normal <=69 [facility] Comment on above: Performed By: #### 1 1769847, 4629755, 3056012, 2274333, 21018526, 2520885, 7077118, 0994629, 0882802, 31628748, 3625520 #### [facility] [address] [place] [address] PT & PTTon 09-14-2018 aPTT Coag (PPP) [Time] 34.5 second(s) Normal 25.1-36.5 [facility] Comment on above: Result Comment: Hepa rin therapeutic range (represented by Anti-Factor Xa activity of 0.2 - 0.4 U/mL) corresponds to PTT of 56.6 - 109.0 sec. Performed By: #### 1 0813947, 7952088, 7147382, 9017713, 84760607, 3507847, 8382753, 5202194, 4452472, 35686629, 5981420 #### [facility] [address] [place] [address] INR Coag (PPP) [Relative time] 1.0 {INR} [facility] Comment on above: Result Comment: INR results are specifically intended to assess patients stabilized on long-term Anticoagulation therapy suggested INR?s ?Less Intensive Anticoagulation? 2.0 ? 3.0 Conventional Range 3.0 ? 4.5 Performed By: #### 1 6116121, 5352499, 7280185, 8350664, 75921323, 4150678, 5381122, 2646046, 9399798, 09485745, 7516282 #### [facility] [address] [place] [address] PT Coag (PPP) [Time] 11.2 second(s) Normal 10.2-12.9 [facility] Comment on above: Performed By: #### 1 9726148, 6454192, 9658506, 7923470, 34256041, 0324558, 0751388, 7217711, 7914067, 40719586, 6781957 #### [facility] [address] [place] [address] Phosphoruson 09-14-2018 Phosphate [Mass/Vol] 3.8 mg/dL Normal 1.9-4.6 [facility] Comment on above: Performed By: #### 1 3423938, 5465429, 3022201, 2950299, 08423466, 9974732, 9428606, 2473079, 0005504, 81134580, 4055854 #### [facility] [address] [place] [address] Troponin 0 Hr.on 09-14-2018 Troponin I.cardiac [Mass/Vol] ng/mL Normal <=0.03 [facility] Comment on above: Result Comment: New Troponin Assay 10/05/13 KRISHNA DC Cutoff value > or = 0.03 ng/mL in conjunction with clinical conditions of myocardial infarction. ([email or web address]) Performed By: #### 1 7639843, 3069700, 6777417, 1907571, 94834262, 1446752, 0531110, 0741409, 4093974, 90647870, 6457204 #### [facility] [address] [place] [address] UA With Cult Reflexon 2018 Bacteria LM Ql (Urine sed) TRACE Normal Trace [facility] Comment on above: Performed By: #### 1 6128108, 8809139, 5660833, 2545581, 52484301, 9986909, 8494991, 6818288, 5445304, 12655315, 0564202 #### [facility] [address] [place] [address] Bilirubin Ql (U) Negative Normal Negative [facility] Comment on above: Performed By: #### 1 1301839, 1881112, 3371283, 7317376, 67064190, 8698483, 6725306, 2366594, 6735101, 77210300, 9896397 #### [facility] [address] [place] [address] Clarity (U) CLEAR Normal Clear [facility] Comment on above: Performed By: #### 1 3107938, 1807027, 7988714, 8833278, 64847397, 7342262, 6710118, 0037899, 7908586, 35837619, 2181365 #### [facility] [address] [place] [address] Color (U) YELLOW Normal Yellow [facility] Comment on above: Performed By: #### 1 9530099, 6169401, 6456259, 0383047, 18510622, 8158076, 2105078, 1116641, 7277456, 71393576, 6446273 #### [facility] [address] [place] [address] Epithelial cells.squamous LM.HPF (Urine sed) [#/Area] 0-2 Normal 0-2 [facility] Comment on above: Performed By: #### 1 5241999, 2494517, 1842131, 8992276, 17503874, 4271294, 9443458, 2774276, 5651511, 66828578, 8522850 #### [facility] [address] [place] [address] Glucose Test strip (U) [Mass/Vol] Negative Normal Negative [facility] Comment on above: Performed By: #### 1 5984872, 6631724, 3480035, 4265143, 39608905, 3269955, 9895474, 4613329, 5066795, 09902050, 1195531 #### [facility] [address] [place] [address] Hemoglobin Ql (U) Negative Normal Negative [facility] Comment on above: Performed By: #### 1 2973648, 7971846, 4612476, 5565776, 65092131, 3082767, 1205691, 8661054, 5860908, 20847451, 5778387 #### [facility] [address] [place] [address] Ketones (U) [Mass/Vol] Negative Normal Negative [facility] Comment on above: Performed By: #### 1 9335416, 3240601, 5003276, 1141353, 20873606, 6204323, 5204485, 3429343, 7032804, 86047404, 7306015 #### [facility] [address] [place] [address] [place].plasma/[place] .RBC (Bld) [Mass ratio] 0-3 Normal 0-3 [facility] Comment on above: Performed By: #### 1 3690150, 4210083, 6612435, 7778034, 14104507, 0358480, 8329235, 4463590, 1724657, 70505975, 8923333 #### [facility] [address] [place] [address] Mucus Ql (Urine sed) TRACE Normal Fish [facility] Comment on above: Performed By: #### 1 3599984, 0515757, 1282793, 7229475, 51546493, 7272671, 2197200, 4719251, 2924835, 46196869, 0050602 #### [facility] [address] [place] [address] Nitrite Ql (U) Negative Normal Negative [facility] Comment on above: Performed By: #### 1 1531469, 1704179, 6904175, 6405472, 78687170, 9277678, 2633938, 7635951, 1022798, 54148110, 1542535 #### [facility] [address] [place] [address] pH (U) 6.0 [pH] 5.0-9.0 [facility] Comment on above: Performed By: #### 1 4495346, 1439184, 4086803, 1778929, 36000223, 8515655, 5848245, 7265050, 9997632, 98014037, 4054686 #### [facility] [address] [place] [address] Protein (U) [Mass/Vol] Negative Normal Negative [facility] Comment on above: Performed By: #### 1 0489096, 5707567, 5081002, 0038931, 01780381, 7682071, 2995112, 9126525, 7035365, 01625392, 5426264 #### [facility] [address] [place] [address] Specific gravity (U) [Rel density] 1.010 1.005-1.030 [facility] Comment on above: Performed By: #### 1 7961534, 1508130, 4691034, 6498840, 20873915, 7641987, 4542065, 4358369, 3371074, 07581652, 0056565 #### [facility] [address] [place] [address] UA Spec Desc Clean Catch Normal [facility] Comment on above: Performed By: #### 1 4702546, 6187749, 5187254, 2363974, 83537170, 4376522, 0304167, 8811158, 5371146, 52781961, 9933334 #### [facility] [address] [place] [address] Urobilinogen Qn (U) 0.2 {Carmella'U}/dL Normal 0.0-1.0 [facility] Comment on above: Performed By: #### 1 2049579, 0511687, 4666182, 1471164, 75182585, 2093403, 0971556, 5111110, 4156410, 51872030, 4869827 #### [facility] [address] [place] [address] WBC Auto Ql (U) Negative Normal Negative [facility] Comment on above: Performed By: #### 1 4834747, 3599557, 9260389, 7342366, 51366073, 3659230, 9813791, 3380214, 2888163, 69198919, 0938205 #### [facility] [address] [place] [address] WBC LM.HPF (Urine sed) [#/Area] 0-5 Normal 0-5 [facility] Comment on above: Performed By: #### 1 3670090, 6445651, 3005986, 6196333, 09895146, 1679284, 4041909, 7760145, 9544645, 09273297, 9631822 #### [facility] [address] [place] [address] XR Chest Single Viewon 09-14 XR Chest [...] M.D. Transcribed by: minoo Technologist: AP Normal [facility] XR FOOT LEFT (MIN 3 VIEWS)on 09-14-2018 XR FOOT LEFT (MIN 3 VIEWS) Radiology exam is complete. No Radiologist dictation. Please follow up with ordering provider. Final result Normal [facility] XR FOOT RIGHT (MIN 3 VIEWS)o n 09-14-2018 XR FOOT RIGHT (MIN 3 VIEWS) Radiology exam is complete. No Radiologist dictation. Please follow up with ordering provider. Final result Normal [facility] eGFRon 09-14-2018 GFR/1.73 sq M predicted among blacks MDRD (S/P/Bld) [Vol rate/Area] mL/min/{1.73_m2} Normal >=59 [facility] Comment on above: Order Comment: Order added by Discern Expert. Result Comment: eGFR is race adjusted. AA=. Performed By: #### 1 7759461, 5699399, 8312527, 9982902, 07094124, 8858921, 8466672, 4500764, 2278349, 09149279, 2372200 #### [facility] [address] [place] [address] GFR/1.73 sq M predicted among non-blacks MDRD (S/P/Bld) [Vol rate/Area] mL/min/{1.73_m2} Normal >=59 [facility] Comment on above: Order Comment: Order added by Discern Expert. Result Comment: Assistant Professor Surgical Technology anthony kidney disease could be indicated at eGFR's of less than 60 mL/min/1.73m2. Kidney failure is indicated at less than 15 mL/min/1.73m2. Performed By: #### 1 9764738, 1697278, 7804280, 8948888, 40044805, 0412176, 0764506, 5589281, 6553741, 66046696, 8303444 #### [facility] [address] [place] [address] Vital Signs Date Time Vital Sign Value Performing Clinician Facility 2024 14:16-0400 Body mass index (BMI) [Ratio] 44.01 kg/m2 [employer] Work Phone: [facility] 2024 14:16-0400 Body temperature 97.59 [degF] Chair Markado Work Phone: [facility] 2024 14:16-0400 Body weight 127.5 kg [employer] Phone: [facility] 2024 14:16-0400 Diastolic blood pressure 78 mm[Hg] Chair Markado Work Phone: [facility] 2024 14:16-0400 Heart rate 85 /min Chair Markado Work Phone: [facility] 2024 14:16-0400 Respiratory rate 16 /min [employer] Phone: [facility] 2024 14:16-0400 SaO2% (BldA) [Mass fraction] 96 % Chair Markado Work Phone: [facility] 2024 14:16-0400 Systolic blood pressure 113 mm[Hg] Chair Markado Work Phone: [facility] 10-02-2024 14:15-0400 Body temperature 98.29 [degF] Chair Markado Work Phone: [facility] 10-02-2024 14:15-0400 Diastolic blood pressure 80 mm[Hg] Chair Markado Work Phone: [facility] 10-02-2024 14:15-0400 Heart rate 76 /min Chair Chantilly Work Phone: [facility] 10-02-2024 14:15-0400 Respiratory rate 16 /min Chair Gabbi Work Phone: [facility] 10-02-2024 14:15-0400 SaO2% (BldA) [Mass fraction] 97 % Chair Chantilly Work Phone: [facility] 10-02-2024 14:15-0400 Systolic blood pressure 129 mm[Hg] Chair Chantilly Work Phone: [facility] 09-18-2024 13:20-0400 Body temperature 97.59 [degF] Chair Chantilly Work Phone: [facility] 09-18-2024 13:20-0400 Diastolic blood pressure 84 mm[Hg] Chair Chantilly Work Phone: [facility] 09-18-2024 13:20-0400 Heart rate 107 /min Chair Gabbi Work Phone: [facility] 09-18-2024 13:20-0400 Respiratory rate 18 /min Chair Gabbi Work Phone: [facility] 09-18-2024 13:20-0400 SaO2% (BldA) [Mass fraction] 97 % Chair Gabbi Work Phone: [facility] 09-18-2024 13:20-0400 Systolic blood pressure 115 mm[Hg] Chair Chantilly Work Phone: [facility] 09-06-2024 13:54-0400 Diastolic blood pressure 69 mm[Hg] Chair Gabbi Work Phone: [facility] 09-06-2024 13:54-0400 Heart rate 90 /min Chair Gabbi Work Phone: [facility] 09-06-2024 13:54-0400 Respiratory rate 18 /min Chair Chantilly Work Phone: [facility] 09-06-2024 13:54-0400 SaO2% (BldA) [Mass fraction] 97 % Chair Gabbi Work Phone: [facility] 09-06-2024 13:54-0400 Systolic blood pressure 110 mm[Hg] Chair Reese Work Phone: [facility] 09-06-2024 08:43-0400 Body height 170.2 cm Vaibhav John ANIMATION DIRECTOR.MRI TECHNICIAN Work Phone: [facility] 09-06-2024 08:43-0400 Body mass index (BMI) [Ratio] 45.5 kg/m2 Vaibhav John ANIMATION DIRECTOR.MRI TECHNICIAN Work Phone: [facility] 09-06-2024 08:43-0400 Body temperature 97.5 [degF] Vaibhav John ANIMATION DIRECTOR.MRI TECHNICIAN Work Phone: [facility] 09-06-2024 08:43-0400 Body weight 131.8 kg Vaibhav John ANIMATION DIRECTOR.MRI TECHNICIAN Work Phone: [facility] 09-06-2024 08:43-0400 Diastolic blood pressure 64 mm[Hg] Vaibhav John ANIMATION DIRECTOR.MRI TECHNICIAN Work Phone: [facility] 09-06-2024 08:43-0400 Heart rate 77 /min Vaibhav John ANIMATION DIRECTOR.MRI TECHNICIAN Work Phone: [facility] 09-06-2024 08:43-0400 Respiratory rate 18 /min Vaibahv John ANIMATION DIRECTOR.MRI TECHNICIAN Work Phone: [facility] 09-06-2024 08:43-0400 SaO2% (BldA) [Mass fraction] 97 % Vaibhav John ANIMATION DIRECTOR.MRI TECHNICIAN Work Phone: [facility] 09-06-2024 08:43-0400 Systolic blood pressure 116 mm[Hg] Vaibhav John ANIMATION DIRECTOR.MRI TECHNICIAN Work Phone: [facility] 09-04-2024 15:04-0400 Body height 170.2 cm Gordo Barfield MD Work Phone: [facility] 09-04-2024 15:04-0400 Body mass index (BMI) [Ratio] 44.32 kg/m2 Gordo Barfield MD Work Phone: [facility] 09-04-2024 15:04-0400 Body weight 128.37 kg Gordo Barfield MD Work Phone: [facility] 09-04-2024 15:04-0400 Diastolic blood pressure 73 mm[Hg] Gordo Barfield MD Work Phone: [facility] 09-04-2024 15:04-0400 Heart rate 101 /min Gordo Barfield MD Work Phone: [facility] 09-04-2024 15:04-0400 Systolic blood pressure 112 mm[Hg] Gordo Barfield MD Work Phone: [facility] 08-08-2024 14:36-0400 Diastolic blood pressure 87 mm[Hg] Chair Gabbi Work Phone: [facility] 08-08-2024 14:36-0400 Heart rate 83 /min Chair Chantilly Work Phone: [facility] 08-08-2024 14:36-0400 Respiratory rate 18 /min Chair Gabbi Work Phone: [facility] 08-08-2024 14:36-0400 SaO2% (BldA) [Mass fraction] 97 % Chair Chantilly Work Phone: [facility] 08-08-2024 14:36-0400 Systolic blood pressure 129 mm[Hg] Chair Chantilly Work Phone: [facility] 08-08-2024 10:54-0400 Body temperature 98.01 [degF] Chair Chantilly Work Phone: [facility] 07-31-2024 16:05-0400 Diastolic blood pressure 70 mm[Hg] Gay LINC Work Phone: [facility] 07-31-2024 16:05-0400 Heart rate 108 /min Gay Enciso QUALITY CLOTH TESTER-C Work Phone: [facility] 07-31-2024 16:05-0400 SaO2% (BldA) [Mass fraction] 96 % Gayomer Johnmer QUALITY CLOTH TESTER-C Work Phone: [facility] 07-31-2024 16:05-0400 Systolic blood pressure 104 mm[Hg] Gay Enciso QUALITY CLOTH TESTER-C Work Phone: [facility] 07-26-2024 15:06-0500 Body height 170.2 cm Lois Holm MD Work Phone: [facility] 07-26-2024 15:06-0500 Body mass index (BMI) [Ratio] 44.92 kg/m2 Lois Holm MD Work Phone: [facility] 07-26-2024 15:06-0500 Body weight 130.09 kg Lois Holm MD Work Phone: [facility] 07-26-2024 15:06-0500 Diastolic blood pressure 60 mm[Hg] Lois Holm MD Work Phone: [facility] 07-26-2024 15:06-0500 Heart rate 84 /min Lois Holm MD Work Phone: [facility] 07-26-2024 15:06-0500 Systolic blood pressure 100 mm[Hg] Lois Holm MD Work Phone: [facility] 07-19-2024 11:27-0500 Diastolic blood pressure 90 mm[Hg] Gay Enciso QUALITY CLOTH TESTER-C Work Phone: [facility] 07-19-2024 11:27-0500 Heart rate 78 /min Gayomer Johnmer QUALITY CLOTH TESTER-C Work Phone: [facility] 07-19-2024 11:27-0500 Respiratory rate 16 /min Gay Enciso QUALITY CLOTH TESTER-C Work Phone: [facility] 07-19-2024 11:27-0500 SaO2% (BldA) [Mass fraction] 96 % Gay Enciso QUALITY CLOTH TESTER-C Work Phone: [facility] 07-19-2024 11:27-0500 Systolic blood pressure 126 mm[Hg] Gay Britt QUALITY CLOTH TESTER-C Work Phone: [facility] 07-19-2024 09:54-0500 Body height 170.18 cm Gay Enciso QUALITY CLOTH TESTER-C Work Phone: [facility] 07-19-2024 09:54-0500 Body weight 127 kg Gay Britt QUALITY CLOTH TESTER-C Work Phone: [facility] 07-12-2024 14:16-0500 Body temperature 96.91 [degF] Marky Barnes PA-C Work Phone: [facility] 07-11-2024 14:30-0500 Body temperature 97.39 [degF] Chair Gabbi Work Phone: [facility] 07-11-2024 14:30-0500 Diastolic blood pressure 80 mm[Hg] Chair Chantilly Work Phone: [facility] 07-11-2024 14:30-0500 Heart rate 69 /min Chair Chantilly Work Phone: [facility] 07-11-2024 14:30-0500 Respiratory rate 18 /min Chair Chantilly Work Phone: [facility] 07-11-2024 14:30-0500 SaO2% (BldA) [Mass fraction] 98 % Chair Chantilly Work Phone: [facility] 07-11-2024 14:30-0500 Systolic blood pressure 119 mm[Hg] Chair Gabbi Work Phone: [facility] 07-10-2024 15:25-0500 Diastolic blood pressure 70 mm[Hg] [facility] 07-10-2024 15:25-0500 Heart rate 106 /min [facility] 07-10-2024 15:25-0500 SaO2% (BldA) [Mass fraction] 97 % [facility] 07-10-2024 15:25-0500 Systolic blood pressure 102 mm[Hg] [facility] 06-13-2024 14:55-0500 Diastolic blood pressure 56 mm[Hg] Chair Chantilly Work Phone: [facility] 06-13-2024 14:55-0500 Heart rate 70 /min Chair Chantilly Work Phone: [facility] 06-13-2024 14:55-0500 Respiratory rate 18 /min Chair Chantilly Work Phone: [facility] 06-13-2024 14:55-0500 SaO2% (BldA) [Mass fraction] 98 % Chair Chantilly Work Phone: [facility] 06-13-2024 14:55-0500 Systolic blood pressure 93 mm[Hg] Chair Chantilly Work Phone: [facility] 06-13-2024 08:55-0500 Body mass index (BMI) [Ratio] 45.08 kg/m2 Vaibhav John ANIMATION DIRECTOR.MRI TECHNICIAN Work Phone: [facility] 06-13-2024 08:55-0500 Body temperature 97.59 [degF] Vaibhav John ANIMATION DIRECTOR.MRI TECHNICIAN Work Phone: [facility] 06-13-2024 08:55-0500 Body weight 130.6 kg Vaibhav John ANIMATION DIRECTOR.MRI TECHNICIAN Work Phone: [facility] 06-13-2024 08:55-0500 Diastolic blood pressure 71 mm[Hg] Vaibhav John ANIMATION DIRECTOR.MRI TECHNICIAN Work Phone: [facility] 06-13-2024 08:55-0500 Heart rate 79 /min Vaibhav John ANIMATION DIRECTOR.MRI TECHNICIAN Work Phone: [facility] 06-13-2024 08:55-0500 Respiratory rate 16 /min Vaibhav John ANIMATION DIRECTOR.MRI TECHNICIAN Work Phone: [facility] 06-13-2024 08:55-0500 SaO2% (BldA) [Mass fraction] 98 % Vaibhav Carvalho ANIMATION DIRECTOR.MRI TECHNICIAN Work Phone: [facility] 06-13-2024 08:55-0500 Systolic blood pressure 106 mm[Hg] Vaibhav Carvalho ANIMATION DIRECTOR.MRI TECHNICIAN Work Phone: [facility] 06-06-2024 11:37-0500 Body mass index (BMI) [Ratio] 45.08 kg/m2 Oly Plascencia PA Work Phone: [facility] 06-06-2024 11:37-0500 Body weight 130.54 kg Oly Plascencia PA Work Phone: [facility] 06-06-2024 11:37-0500 Diastolic blood pressure 70 mm[Hg] Oly Plascencia PA Work Phone: [facility] 06-06-2024 11:37-0500 Systolic blood pressure 120 mm[Hg] Oly Plascencia PA Work Phone: [facility] 05-19-2024 15:02-0500 Body temperature 97.3 [degF] Chair Chantilly Work Phone: [facility] 05-19-2024 15:02-0500 Diastolic blood pressure 63 mm[Hg] Chair Gabbi Work Phone: [facility] 05-19-2024 15:02-0500 Heart rate 73 /min Chair Gabbi Work Phone: [facility] 05-19-2024 15:02-0500 Respiratory rate 20 /min Chair Chantilly Work Phone: [facility] 05-19-2024 15:02-0500 SaO2% (BldA) [Mass fraction] 98 % Chair Chantilly Work Phone: [facility] Comment on above: 05-19-2024 15:02-0500 Systolic blood pressure 114 mm[Hg] Chair Chantilly Work Phone: [facility] 04-26-2024 09:31-0500 Body temperature 97.59 [degF] Ma Sand Work Phone: [facility] 04-26-2024 09:31-0500 Diastolic blood pressure 78 mm[Hg] Ma Sand Work Phone: [facility] Comment on above: Manual 04-26-2024 09:31-0500 Heart rate 66 /min Ma Sand Work Phone: [facility] 04-26-2024 09:31-0500 Respiratory rate 16 /min Ma Sand Work Phone: [facility] 04-26-2024 09:31-0500 SaO2% (BldA) [Mass fraction] 99 % Ma Sand Work Phone: [facility] 04-26-2024 09:31-0500 Systolic blood pressure 122 mm[Hg] Ma Sand Work Phone: [facility] Comment on above: Manual 04-10-2024 10:12-0500 Body height 170.2 cm Gordo Barfield MD Work Phone: [facility] 04-10-2024 10:12-0500 Body mass index (BMI) [Ratio] 44.95 kg/m2 Gordo Barfield MD Work Phone: [facility] 04-10-2024 10:12-0500 Body weight 130.18 kg Gordo Barfield MD Work Phone: [facility] 04-10-2024 10:12-0500 Diastolic blood pressure 70 mm[Hg] Gordo Barfield MD Work Phone: [facility] 04-10-2024 10:12-0500 Systolic blood pressure 110 mm[Hg] Gordo Barfield MD Work Phone: [facility] 04-06-2024 10:00-0500 Body height 170.2 cm Hayden Arciniega MD Work Phone: [facility] 04-06-2024 10:00-0500 Body mass index (BMI) [Ratio] 43.07 kg/m2 Hayden Arciniega MD Work Phone: [facility] 04-06-2024 10:00-0500 Body temperature 97 [degF] Hayden Arciniega MD Work Phone: [facility] 04-06-2024 10:00-0500 Body weight 124.74 kg Hayden Arciniega MD Work Phone: [facility] 04-06-2024 10:00-0500 Diastolic blood pressure 80 mm[Hg] Hayden Arciniega MD Work Phone: [facility] 04-06-2024 10:00-0500 Heart rate 86 /min Hayden Arciniega MD Work Phone: [facility] 04-06-2024 10:00-0500 SaO2% (BldA) [Mass fraction] 97 % Hayden Arciniega MD Work Phone: [facility] 04-06-2024 10:00-0500 Systolic blood pressure 136 mm[Hg] Hayden Arciniega MD Work Phone: [facility] 04-02-2024 13:27-0500 Body mass index (BMI) [Ratio] 45.42 kg/m2 Marky Mike DO Work Phone: [facility] 04-02-2024 13:27-0500 Body temperature 98.71 [degF] Marky Mike DO Work Phone: [facility] 04-02-2024 13:27-0500 Body weight 131.54 kg Marky Mike DO Work Phone: [facility] 04-02-2024 13:27-0500 Diastolic blood pressure 90 mm[Hg] Marky Mike DO Work Phone: [facility] 04-02-2024 13:27-0500 Heart rate 78 /min Marky Mike DO Work Phone: [facility] 04-02-2024 13:27-0500 SaO2% (BldA) [Mass fraction] 99 % Marky Mike DO Work Phone: [facility] 04-02-2024 13:27-0500 Systolic blood pressure 132 mm[Hg] Marky Rashid DO Work Phone: [facility] 03-23-2024 14:35-0400 Body mass index (BMI) [Ratio] 44.17 kg/m2 Oly Temo PA Work Phone: [facility] 03-23-2024 14:35-0400 Body weight 127.91 kg Oly Plascencia PA Work Phone: [facility] 03-23-2024 14:35-0400 Diastolic blood pressure 76 mm[Hg] Oly Plascencia PA Work Phone: [facility] 03-23-2024 14:35-0400 Systolic blood pressure 122 mm[Hg] Oly Ethridge PA Work Phone: [facility] 03-23-2024 10:11-0400 Body height 170.2 cm Ma Sand Work Phone: [facility] 03-23-2024 10:11-0400 Body mass index (BMI) [Ratio] 43.06 kg/m2 Ma Sand Work Phone: [facility] 03-23-2024 10:11-0400 Body temperature 97.59 [degF] Ma Sand Work Phone: [facility] 03-23-2024 10:11-0400 Body weight 124.74 kg Ma Sand Work Phone: [facility] 03-23-2024 10:11-0400 Diastolic blood pressure 85 mm[Hg] Ma Sand Work Phone: [facility] 03-23-2024 10:11-0400 Heart rate 71 /min Ma Sand Work Phone: [facility] 03-23-2024 10:11-0400 Respiratory rate 16 /min Ma Sand Work Phone: [facility] 03-23-2024 10:11-0400 SaO2% (BldA) [Mass fraction] 94 % Ma Sand Work Phone: [facility] 03-23-2024 10:11-0400 Systolic blood pressure 135 mm[Hg] Ma Sand Work Phone: [facility] 03-16-2024 11:24-0400 Body mass index (BMI) [Ratio] 43.67 kg/m2 Luan Skip DO Work Phone: [facility] 03-16-2024 11:24-0400 Body weight 126.46 kg Luan Skip DO Work Phone: [facility] 03-16-2024 11:24-0400 Diastolic blood pressure 70 mm[Hg] Luan Skip DO Work Phone: [facility] 03-16-2024 11:24-0400 Systolic blood pressure 120 mm[Hg] Luan Skip DO Work Phone: [facility] 03-16-2024 09:20-0400 Body height 170.18 cm [employer]ALITY CLOTH TESTER-C Gay Enciso Work Phone: [facility] 03-16-2024 09:20-0400 Body mass index (BMI) [Ratio] 43 kg/m2 [employer]OTH TE[employer]-C Gay Enciso Work Phone: [facility] 03-16-2024 09:20-0400 Body weight 124.73 kg [employer]OTH TE[employer]-C Gay Enciso Work Phone: [facility] 02-21-2024 11:04-0400 Body temperature 97.2 [degF] Ma Sand Work Phone: [facility] 02-21-2024 11:04-0400 Diastolic blood pressure 68 mm[Hg] Ma Sand Work Phone: [facility] Comment on above: manual 02-21-2024 11:04-0400 Heart rate 95 /min Ma Sand Work Phone: [facility] 02-21-2024 11:04-0400 Respiratory rate 16 /min Ma Sand Work Phone: [facility] 02-21-2024 11:04-0400 SaO2% (BldA) [Mass fraction] 98 % Ma Sand Work Phone: [facility] 02-21-2024 11:04-0400 Systolic blood pressure 102 mm[Hg] Ma Sand Work Phone: [facility] Comment on above: manual 02-16-2024 09:23-0400 Diastolic blood pressure 72 mm[Hg] [employer] TE[employer]-C Gay Johnmer Work Phone: [facility] 02-16-2024 09:23-0400 Heart rate 70 /min [employer] TE[employer]-C Gayomer Johnmer Work Phone: [facility] 02-16-2024 09:23-0400 Respiratory rate 16 /min [employer] TE[employer]-C Gayomer Johnmer Work Phone: [facility] 02-16-2024 09:23-0400 SaO2% (BldA) [Mass fraction] 96 % [employer] TE[employer]-C Gay Johnmer Work Phone: [facility] 02-16-2024 09:23-0400 Systolic blood pressure 126 mm[Hg] [employer] TE[employer]-C Gay Johnmer Work Phone: [facility] 02-16-2024 07:27-0400 Body height 170.18 cm [employer]ITY [employer]OTH TE[employer]-C Gay Enciso Work Phone: [facility] 02-16-2024 07:27-0400 Body weight 122.46 kg [employer] TE[employer]-C Gay Johnmer Work Phone: [facility] 01-28-2024 11:31-0400 Body weight 126.6 kg [facility] 01-28-2024 11:31-0400 Diastolic blood pressure 80 mm[Hg] [facility] 01-28-2024 11:31-0400 Heart rate 69 /min [facility] 01-28-2024 11:31-0400 SaO2% (BldA) [Mass fraction] 98 % [facility] 01-28-2024 11:31-0400 Systolic blood pressure 120 mm[Hg] [facility] 01-25-2024 11:30-0400 Body temperature 97.39 [degF] Ma Sand Work Phone: [facility] 01-25-2024 11:30-0400 Diastolic blood pressure 67 mm[Hg] Ma Sand Work Phone: [facility] 01-25-2024 11:30-0400 Heart rate 68 /min Ma Sand Work Phone: [facility] 01-25-2024 11:30-0400 Respiratory rate 16 /min Ma Sand Work Phone: [facility] 01-25-2024 11:30-0400 SaO2% (BldA) [Mass fraction] 99 % Ma Sand Work Phone: [facility] 01-25-2024 11:30-0400 Systolic blood pressure 92 mm[Hg] Ma Sand Work Phone: [facility] 12-27-2023 11:16-0400 Diastolic blood pressure 68 mm[Hg] Juli Liz PA-C Work Phone: [facility] 12-27-2023 11:16-0400 Systolic blood pressure 98 mm[Hg] Juli Liz PA-C Work Phone: [facility] 12-27-2023 11:02-0400 Body height 170.2 cm Juli Liz PA-C Work Phone: [facility] 12-27-2023 11:02-0400 Body mass index (BMI) [Ratio] 43.08 kg/m2 Juli Liz PA-C Work Phone: [facility] 12-27-2023 11:02-0400 Body temperature 97.7 [degF] Juli Liz PA-C Work Phone: [facility] 12-27-2023 11:02-0400 Body weight 124.8 kg Juli Liz PA-C Work Phone: [facility] 12-27-2023 11:02-0400 Heart rate 89 /min Juli Liz PA-C Work Phone: [facility] 12-27-2023 11:02-0400 Respiratory rate 16 /min Juli Liz PA-C Work Phone: [facility] 12-27-2023 11:02-0400 SaO2% (BldA) [Mass fraction] 98 % Juli Narayanan PA-C Work Phone: [facility] 12-16-2023 14:13-0400 Body height 170.18 cm [facility] 12-16-2023 14:13-0400 Body mass index (BMI) [Ratio] 42.7 kg/m2 [facility] 12-16-2023 14:13-0400 Body temperature 98.6 [degF] [facility] 12-16-2023 14:13-0400 Body weight 123.83 kg [facility] 12-16-2023 14:13-0400 Diastolic blood pressure 73 mm[Hg] [facility] 12-16-2023 14:13-0400 Heart rate 75 /min [facility] 12-16-2023 14:13-0400 Systolic blood pressure 106 mm[Hg] [facility] 11-29-2023 13:43-0400 Body temperature 97.59 [degF] Ma Sand Work Phone: [facility] 11-29-2023 13:43-0400 Diastolic blood pressure 51 mm[Hg] Ma Sand Work Phone: [facility] 11-29-2023 13:43-0400 Heart rate 73 /min Ma Sand Work Phone: [facility] 11-29-2023 13:43-0400 Respiratory rate 16 /min Ma Sand Work Phone: [facility] 11-29-2023 13:43-0400 SaO2% (BldA) [Mass fraction] 96 % Ma Sand Work Phone: [facility] 11-29-2023 13:43-0400 Systolic blood pressure 83 mm[Hg] Ma Sand Work Phone: [facility] 11-04-2023 13:55-0400 Body height 170.18 cm [facility] 11-04-2023 13:55-0400 Body temperature 97.3 [degF] [facility] 11-04-2023 13:55-0400 Diastolic blood pressure 54 mm[Hg] [facility] 11-04-2023 13:55-0400 Heart rate 62 /min [facility] 11-04-2023 13:55-0400 Systolic blood pressure 104 mm[Hg] [facility] 10-27-2023 14:44-0400 Body temperature 97 [degF] Ma Sand Work Phone: [facility] 10-27-2023 14:44-0400 Diastolic blood pressure 72 mm[Hg] Ma Sand Work Phone: [facility] 10-27-2023 14:44-0400 Heart rate 97 /min Ma Sand Work Phone: [facility] 10-27-2023 14:44-0400 Respiratory rate 18 /min Ma Sand Work Phone: [facility] 10-27-2023 14:44-0400 SaO2% (BldA) [Mass fraction] 97 % Ma Sand Work Phone: [facility] 10-27-2023 14:44-0400 Systolic blood pressure 110 mm[Hg] Ma Sand Work Phone: [facility] 10-20-2023 13:10-0400 Body height 170.18 cm [facility] 10-20-2023 13:10-0400 Body mass index (BMI) [Ratio] 43.2 kg/m2 [facility] 10-20-2023 13:10-0400 Body temperature 97.3 [degF] [facility] 10-20-2023 13:10-0400 Body weight 125.19 kg [facility] 10-20-2023 13:10-0400 Diastolic blood pressure 54 mm[Hg] [facility] 10-20-2023 13:10-0400 Heart rate 74 /min [facility] 10-20-2023 13:10-0400 Systolic blood pressure 111 mm[Hg] [facility] 09-30-2023 10:48-0400 Body temperature 97 [degF] Ma Sand Work Phone: [facility] 09-30-2023 10:48-0400 Diastolic blood pressure 82 mm[Hg] Ma Sand Work Phone: [facility] 09-30-2023 10:48-0400 Heart rate 71 /min Ma Sand Work Phone: [facility] 09-30-2023 10:48-0400 Respiratory rate 18 /min Ma Sand Work Phone: [facility] 09-30-2023 10:48-0400 SaO2% (BldA) [Mass fraction] 97 % Ma Sand Work Phone: [facility] 09-30-2023 10:48-0400 Systolic blood pressure 132 mm[Hg] Ma Sand Work Phone: [facility] 09-22-2023 14:41-0400 Body weight 117.93 kg [facility] 08-31-2023 10:34-0400 Body temperature 97.3 [degF] Ma Sand Work Phone: [facility] 08-31-2023 10:34-0400 Diastolic blood pressure 66 mm[Hg] Ma Sand Work Phone: [facility] 08-31-2023 10:34-0400 Heart rate 68 /min Ma Sand Work Phone: [facility] 08-31-2023 10:34-0400 Respiratory rate 18 /min Ma Sand Work Phone: [facility] 08-31-2023 10:34-0400 SaO2% (BldA) [Mass fraction] 99 % Ma Sand Work Phone: [facility] 08-31-2023 10:34-0400 Systolic blood pressure 105 mm[Hg] Ma Sand Work Phone: [facility] 08-05-2023 11:15-0400 Body temperature 97.39 [degF] Ma Sand Work Phone: [facility] 08-05-2023 11:15-0400 Diastolic blood pressure 41 mm[Hg] Ma Sand Work Phone: [facility] 08-05-2023 11:15-0400 Heart rate 68 /min Ma Sand Work Phone: [facility] 08-05-2023 11:15-0400 Respiratory rate 18 /min Ma Sand Work Phone: [facility] 08-05-2023 11:15-0400 SaO2% (BldA) [Mass fraction] 98 % Ma Sand Work Phone: [facility] 08-05-2023 11:15-0400 Systolic blood pressure 98 mm[Hg] Ma Sand Work Phone: [facility] 07-13-2023 11:49-0500 Body temperature 97.5 [degF] Ma Sand Work Phone: [facility] 07-13-2023 11:49-0500 Diastolic blood pressure 74 mm[Hg] Ma Sand Work Phone: [facility] 07-13-2023 11:49-0500 Heart rate 83 /min Ma Sand Work Phone: [facility] 07-13-2023 11:49-0500 Respiratory rate 18 /min Ma Sand Work Phone: [facility] 07-13-2023 11:49-0500 SaO2% (BldA) [Mass fraction] 96 % Ma Sand Work Phone: [facility] 07-13-2023 11:49-0500 Systolic blood pressure 109 mm[Hg] Ma Sand Work Phone: [facility] 07-13-2023 10:01-0500 Diastolic blood pressure 65 mm[Hg] Lois Holm MD Work Phone: [facility] 07-13-2023 10:01-0500 Systolic blood pressure 105 mm[Hg] Lois Holm MD Work Phone: [facility] 07-13-2023 09:41-0500 Body height 170.2 cm Lois Holm MD Work Phone: [facility] 07-13-2023 09:41-0500 Body mass index (BMI) [Ratio] 43.85 kg/m2 Lois Holm MD Work Phone: [facility] 07-13-2023 09:41-0500 Body weight 127.01 kg Lois Holm MD Work Phone: [facility] 07-13-2023 09:41-0500 Heart rate 71 /min Lois Holm MD Work Phone: [facility] 07-06-2023 14:48-0500 Body mass index (BMI) [Ratio] 41.81 kg/m2 Kade Richardson MD Work Phone: [facility] 07-06-2023 14:48-0500 Body weight 119.3 kg Kade Richardson MD Work Phone: [facility] 06-09-2023 08:45-0500 Body height 170.2 cm Michelle Jasmine ANIMATION DIRECTOR-MRI TECHNICIAN Work Phone: [facility] 06-09-2023 08:45-0500 Body mass index (BMI) [Ratio] 44.48 kg/m2 Michelle Jasmine ANIMATION DIRECTOR-MRI TECHNICIAN Work Phone: [facility] 06-09-2023 08:45-0500 Body weight 128.82 kg Michelle Jasmine ANIMATION DIRECTOR-MRI TECHNICIAN Work Phone: [facility] 06-09-2023 08:45-0500 Diastolic blood pressure 82 mm[Hg] Michelle Jasmine ANIMATION DIRECTOR-MRI TECHNICIAN Work Phone: [facility] 06-09-2023 08:45-0500 Heart rate 80 /min Michelle Jasmine ANIMATION DIRECTOR-MRI TECHNICIAN Work Phone: [facility] 06-09-2023 08:45-0500 Systolic blood pressure 146 mm[Hg] Michelle Jasmine ANIMATION DIRECTOR-MRI TECHNICIAN Work Phone: [facility] 05-26-2023 17:17-0500 Body weight 123.83 kg Christie Phan MD Work Phone: [facility] 04-26-2023 14:42-0500 Body weight 125.19 kg Christie Phan MD Work Phone: [facility] 03-19-2023 11:16-0400 Body temperature 97.7 [degF] Ma Sand Work Phone: [facility] 03-19-2023 11:16-0400 Diastolic blood pressure 54 mm[Hg] Ma Sand Work Phone: [facility] 03-19-2023 11:16-0400 Heart rate 75 /min Ma Sand Work Phone: [facility] 03-19-2023 11:16-0400 Respiratory rate 16 /min Ma Sand Work Phone: [facility] 03-19-2023 11:16-0400 SaO2% (BldA) [Mass fraction] 96 % Ma Sand Work Phone: [facility] 03-19-2023 11:16-0400 Systolic blood pressure 111 mm[Hg] Ma Sand Work Phone: [facility] 02-19-2023 10:56-0400 Body height 170.2 cm Vera Najera MD Work Phone: [facility] 02-19-2023 10:56-0400 Body temperature 97.39 [degF] Vera Najera MD Work Phone: [facility] 02-19-2023 10:56-0400 Body weight 120.75 kg Vera Najera MD Work Phone: [facility] 02-19-2023 10:56-0400 Diastolic blood pressure 69 mm[Hg] Vera Najera MD Work Phone: [facility] 02-19-2023 10:56-0400 Heart rate 110 /min Vera Najera MD Work Phone: [facility] 02-19-2023 10:56-0400 Respiratory rate 16 /min Vera Najera MD Work Phone: [facility] 02-19-2023 10:56-0400 SaO2% (BldA) [Mass fraction] 96 % Vera Najera MD Work Phone: [facility] 02-19-2023 10:56-0400 Systolic blood pressure 132 mm[Hg] Vera Najera MD Work Phone: [facility] 01-22-2023 12:09-0400 Diastolic blood pressure 76 mm[Hg] Ma Sand Work Phone: [facility] 01-22-2023 12:09-0400 Systolic blood pressure 107 mm[Hg] Ma Sand Work Phone: [facility] 01-22-2023 12:08-0400 Body temperature 97.59 [degF] Ma Sand Work Phone: [facility] 01-22-2023 12:08-0400 Heart rate 102 /min Ma Sand Work Phone: [facility] 01-22-2023 12:08-0400 Respiratory rate 16 /min Ma Sand Work Phone: [facility] 01-22-2023 12:08-0400 SaO2% (BldA) [Mass fraction] 97 % Ma Sand Work Phone: [facility] 11-19-2022 11:00-0400 Body temperature 97.2 [degF] Ma Sand Work Phone: [facility] 11-19-2022 11:00-0400 Diastolic blood pressure 54 mm[Hg] Ma Sand Work Phone: [facility] 11-19-2022 11:00-0400 Heart rate 98 /min Ma Sand Work Phone: [facility] 11-19-2022 11:00-0400 Respiratory rate 16 /min Ma Sand Work Phone: [facility] 11-19-2022 11:00-0400 SaO2% (BldA) [Mass fraction] 98 % Ma Sand Work Phone: [facility] 11-19-2022 11:00-0400 Systolic blood pressure 126 mm[Hg] Ma Sand Work Phone: [facility] 10-22-2022 11:51-0400 Body height 170.2 cm Ma Sand Work Phone: [facility] 10-22-2022 11:51-0400 Body weight 120.66 kg Ma Sand Work Phone: [facility] 10-22-2022 11:51-0400 Respiratory rate 16 /min Ma Sand Work Phone: [facility] 10-22-2022 10:50-0400 Body height 170.2 cm Vera Najera MD Work Phone: [facility] 10-22-2022 10:50-0400 Body temperature 97 [degF] Vera Najera MD Work Phone: [facility] 10-22-2022 10:50-0400 Body weight 120.75 kg Vera Najera MD Work Phone: [facility] 10-22-2022 10:50-0400 Diastolic blood pressure 55 mm[Hg] Vera Njaera MD Work Phone: [facility] 10-22-2022 10:50-0400 Heart rate 78 /min Vera Najera MD Work Phone: [facility] 10-22-2022 10:50-0400 Respiratory rate 16 /min Vera Najera MD Work Phone: [facility] 10-22-2022 10:50-0400 SaO2% (BldA) [Mass fraction] 98 % Vera Najera MD Work Phone: [facility] 10-22-2022 10:50-0400 Systolic blood pressure 132 mm[Hg] Vera Najera MD Work Phone: [facility] 09-24-2022 10:22-0400 Body height 170.2 cm Ma Sand Work Phone: [facility] 09-24-2022 10:22-0400 Body temperature 97 [degF] Ma Sand Work Phone: [facility] 09-24-2022 10:22-0400 Body weight 120.2 kg Ma Sand Work Phone: [facility] 09-24-2022 10:22-0400 Diastolic blood pressure 81 mm[Hg] Ma Sand Work Phone: [facility] 09-24-2022 10:22-0400 Heart rate 77 /min Ma Sand Work Phone: [facility] 09-24-2022 10:22-0400 Respiratory rate 16 /min Ma Sand Work Phone: [facility] 09-24-2022 10:22-0400 SaO2% (BldA) [Mass fraction] 97 % Ma Sand Work Phone: [facility] 09-24-2022 10:22-0400 Systolic blood pressure 116 mm[Hg] Ma Sand Work Phone: [facility] 09-07-2022 14:03-0400 Body weight 120.2 kg Christie Phan MD Work Phone: [facility] 08-27-2022 09:45-0400 Body height 170.2 cm Rebekah Rojas APRN.MRI TECHNICIAN Work Phone: [facility] 08-27-2022 09:45-0400 Body temperature 97.7 [degF] Rebekah Rojas APRN.MRI TECHNICIAN Work Phone: [facility] 08-27-2022 09:45-0400 Body weight 118.66 kg Rebekah Rojas APRN.MRI TECHNICIAN Work Phone: [facility] 08-27-2022 09:45-0400 Diastolic blood pressure 55 mm[Hg] Rebekah Rojas APRN.MRI TECHNICIAN Work Phone: [facility] 08-27-2022 09:45-0400 Heart rate 63 /min Rebekah Bob ANIMATION DIRECTOR.MRI TECHNICIAN Work Phone: [facility] 08-27-2022 09:45-0400 Respiratory rate 16 /min Rebekah Rojas ANIMATION DIRECTOR.MRI TECHNICIAN Work Phone: [facility] 08-27-2022 09:45-0400 SaO2% (BldA) [Mass fraction] 96 % Rebekah Rojas ANIMATION DIRECTOR.MRI TECHNICIAN Work Phone: [facility] 08-27-2022 09:45-0400 Systolic blood pressure 117 mm[Hg] Rebekah Rojas ANIMATION DIRECTOR.MRI TECHNICIAN Work Phone: [facility] 05-20-2022 13:28-0500 Body height 170.2 cm Vera Najera MD Work Phone: [facility] 05-20-2022 13:28-0500 Body temperature 97.7 [degF] Vera Najera MD Work Phone: [facility] 05-20-2022 13:28-0500 Diastolic blood pressure 70 mm[Hg] Vera Najera MD Work Phone: [facility] 05-20-2022 13:28-0500 Heart rate 93 /min Vera Najera MD Work Phone: [facility] 05-20-2022 13:28-0500 Respiratory rate 16 /min Vera Najera MD Work Phone: [facility] 05-20-2022 13:28-0500 SaO2% (BldA) [Mass fraction] 97 % Vera Najera MD Work Phone: [facility] 05-20-2022 13:28-0500 Systolic blood pressure 127 mm[Hg] Vera Najera MD Work Phone: [facility] 03-18-2022 10:49-0400 Body height 170.2 cm Vera aNjera MD Work Phone: [facility] 03-18-2022 10:49-0400 Body temperature 97.81 [degF] Vera Najera MD Work Phone: [facility] 03-18-2022 10:49-0400 Body weight 113.4 kg Vera Najera MD Work Phone: [facility] 03-18-2022 10:49-0400 Diastolic blood pressure 49 mm[Hg] Vera Najera MD Work Phone: [facility] 03-18-2022 10:49-0400 Heart rate 86 /min Vera Najera MD Work Phone: [facility] 03-18-2022 10:49-0400 Respiratory rate 16 /min Vera Najera MD Work Phone: [facility] 03-18-2022 10:49-0400 SaO2% (BldA) [Mass fraction] 98 % Vera Najera MD Work Phone: [facility] 03-18-2022 10:49-0400 Systolic blood pressure 145 mm[Hg] Vera Najera MD Work Phone: [facility] 03-09-2022 11:41-0400 Body height 170.2 cm Christie Phan MD Work Phone: [facility] 03-09-2022 11:41-0400 Body weight 112.49 kg Christie Phan MD Work Phone: [facility] 03-09-2022 11:41-0400 Diastolic blood pressure 100 mm[Hg] Christie Phan MD Work Phone: [facility] 03-09-2022 11:41-0400 Systolic blood pressure 158 mm[Hg] Christie Phan MD Work Phone: [facility] 03-04-2022 10:39-0400 Body height 170.2 cm Vera Najera MD Work Phone: [facility] 03-04-2022 10:39-0400 Body temperature 97.5 [degF] Vera Najera MD Work Phone: [facility] 03-04-2022 10:39-0400 Body weight 112.76 kg Vera Najera MD Work Phone: [facility] 03-04-2022 10:39-0400 Diastolic blood pressure 48 mm[Hg] Vera Najera MD Work Phone: [facility] 03-04-2022 10:39-0400 Heart rate 79 /min Vera Najera MD Work Phone: [facility] 03-04-2022 10:39-0400 Respiratory rate 16 /min Vera Najera MD Work Phone: [facility] 03-04-2022 10:39-0400 SaO2% (BldA) [Mass fraction] 99 % Vera Najera MD Work Phone: [facility] 03-04-2022 10:39-0400 Systolic blood pressure 132 mm[Hg] Vera Najera MD Work Phone: [facility] 11-26-2021 16:00-0400 Body height 168.91 cm Mirela Kelsey Other [email or web address] Other 11-26-2021 16:00-0400 Body mass index (BMI) [Ratio] 37.68 kg/m2 Mirela Kelsey Other [email or web address] Other 11-26-2021 16:00-0400 Body temperature 98.4 [degF] Mirela Kelsey [email or web address] Other 11-26-2021 16:00-0400 Body weight 107.5 kg Mirela Kelsey Other [email or web address] Other 11-26-2021 16:00-0400 Diastolic blood pressure 61 mm[Hg] Mirela Kelsey [email or web address] Other 11-26-2021 16:00-0400 Systolic blood pressure 115 mm[Hg] Mirela Kelsey [email or web address] Other 10-24-2021 08:18-0400 Body weight 108.86 kg Lynne Ni MD Work Phone: [facility] 10-24-2021 08:18-0400 Diastolic blood pressure 42 mm[Hg] Lynne Ni MD Work Phone: [facility] 10-24-2021 08:18-0400 Heart rate 72 /min Lynne Ni MD Work Phone: [facility] 10-24-2021 08:18-0400 Systolic blood pressure 106 mm[Hg] Lynne Ni MD Work Phone: [facility] 10-15-2021 15:45-0400 Body height 168.91 cm Mirela Kelsey [email or web address] Other 10-15-2021 15:45-0400 Body mass index (BMI) [Ratio] 38.31 kg/m2 Mirela Kelsey Other [email or web address] Other 10-15-2021 15:45-0400 Body temperature 98.1 [degF] Mirela Kelsey [email or web address] Other 10-15-2021 15:45-0400 Body weight 109.32 kg Mirela Kelsey [email or web address] Other 10-15-2021 15:45-0400 Diastolic blood pressure 60 mm[Hg] Mirela Kelsey [email or web address] Other 10-15-2021 15:45-0400 Systolic blood pressure 114 mm[Hg] Mirela Kelsey Other [email or web address] Other 09-11-2021 15:15-0400 Body height 168.91 cm Mirela Kelsey [email or web address] Other 09-11-2021 15:15-0400 Body mass index (BMI) [Ratio] 37.99 kg/m2 Mirela Kelsey Other [email or web address] Other 09-11-2021 15:15-0400 Body temperature 97.9 [degF] Mirela Kelsey Other [email or web address] Other 09-11-2021 15:15-0400 Body weight 108.41 kg Mirela Kelsey [email or web address] Other 09-11-2021 15:15-0400 Diastolic blood pressure 83 mm[Hg] Mirela Kelsey Other [email or web address] Other 09-11-2021 15:15-0400 Systolic blood pressure 144 mm[Hg] Mirela Kelsey Other [email or web address] Other 10-07-2020 12:45-0400 Diastolic blood pressure 78 mm[Hg] [facility] [facility] Phone: 10-07-2020 12:45-0400 Heart rate 68 /min [facility] Phone: 10-07-2020 12:45-0400 SaO2% (BldA) [Mass fraction] 99 % [facility] Phone: 10-07-2020 12:45-0400 Systolic blood pressure 112 mm[Hg] [facility] Phone: 10-07-2020 10:45-0400 Respiratory rate 22 /min [facility] [facility] Phone: 10-07-2020 09:01-0400 Body height 170.2 cm Stv [facility] Work Phone: 10-07-2020 09:01-0400 Body mass index (BMI) [Ratio] 36.65 kg/m2 [employer] Phone: 10-07-2020 09:01-0400 Body temperature 97.81 [degF] [employer] Phone: 10-07-2020 09:01-0400 Body weight 106.14 kg [employer] Phone: Encounters Encounter Date Encounter Type Care Provider Facility Start: 10-07-2024 End: 10-07-2024 Patient encounter procedure Lynne Ni MD Work Phone: Rheumatology Comment on above: Other systemic lupus erythematosus with other organ involvement (HCC) (Primary Dx); Vitamin D deficiency; Fibromyalgia; CHRISTIAN positive; Elevated sed rate; Vitamin B12 deficiency; Secondary osteoarthritis of multiple sites; Chronic bilateral low back pain with bilateral sciatica; Chronic pain of toes of both feet; Long-term use of high-risk medication; prison 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; Bilateral hand pain; Family history of Crohn's disease; 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; Bilateral wrist pain Start: 10-07-2024 End: 10-07-2024 Telemedicine consultation with patient Lynne Ni MD Work Phone: Rheumatology Start: 10-06-2024 End: 10-06-2024 Telephone encounter Lynne Ni MD Work Phone: Rheumatology Comment on above: Results Start: 2024 End: 10-05-2024 ambulatory Chair 14 Gabbi Work Phone: Hematology/Oncology Comment on above: Other systemic lupus erythematosus with other organ involvement (HCC) (Primary Dx) Start: 10-02-2024 End: 10-03-2024 ambulatory Chair 2 Gabbi Work Phone: Hematology/Oncology Comment on above: Frequent infections (Primary Dx); Hypogammaglobulinemia (HCC); Bilateral leg weakness; Discoid lupus erythematosus; Elevated sed rate; Megaloblastic anemia due to vitamin B12 deficiency; Elevated LFTs; Anemia of chronic disease; Elevated C-reactive protein (CRP); Vitamin D deficiency Start: 09-20-2024 End: 09-20-2024 Specialty Pharmacy Aidee Quintanilla [facility] Comment on above: SPP Inflammatory Conditions - Medication Refill (Benlysta) Start: 09-19-2024 End: 09-19-2024 ambulatory MANUEL FERRIS Facility:[facility] Start: 09-19-2024 End: 09-19-2024 Patient encounter procedure Deborah Arroyo [facility] Work Phone: [facility] Comment on above: Fibromyalgia (Primary Dx); Family history of disease of aorta; Family history of cancer Start: 09-19-2024 End: 09-19-2024 ambulatory LYNNE NI Facility:[facility] Start: 09-18-2024 End: 09-18-2024 Telephone encounter Vera Najera MD Work Phone: [facility] Comment on above: Future Appointment Start: 09-18-2024 End: 09-18-2024 ambulatory Chair 19 Gabbi Work Phone: Hematology/Oncology Comment on above: Other systemic lupus erythematosus with other organ involvement (HCC) (Primary Dx) Refill Request Start: 09-07-2024 End: 09-07-2024 Follow-up encounter Vaibhav Carvalho APRN.CNP Work Phone: Hematology/Oncology Comment on above: Results Start: 09-06-2024 End: 09-12-2024 Telephone encounter Basia Samuel RN Hematology/Oncology Comment on above: Medication Preauthorization; Appointment Start: 09-06-2024 End: 09-06-2024 ambulatory Chair 3 Gabbi Work Phone: Hematology/Oncology Comment on above: Frequent infections (Primary Dx); Hypogammaglobulinemia (HCC); Bilateral leg weakness; Discoid lupus erythematosus; Elevated sed rate; Megaloblastic anemia due to vitamin B12 deficiency Start: 09-06-2024 End: 09-06-2024 Office outpatient visit 25 minutes Vaibhav Carvalho APRN.MRI TECHNICIAN Work Phone: Hematology/Oncology Comment on above: Hypogammaglobulinemia (HCC) (Primary Dx) ; Vitamin B12 deficiency; Other iron deficiency anemia; Megaloblastic anemia due to vitamin B12 deficiency Start: 09-06-2024 End: 09-06-2024 ambulatory [facility] Facility:[facility] Start: 09-04-2024 End: 09-04-2024 Office outpatient visit 25 minutes Gordo Barfield MD Work Phone: [facility] SELVIN SANTO Comment on above: Thyroid nodule (CMS/HCC) (Primary Dx); LPRD (laryngopharyngeal reflux disease) Start: 09-04-2024 End: 09-04-2024 ambulatory GORDO BARFIELD Not Available Start: 09-04-2024 End: 09-04-2024 Bamboo flowsheet [facility]ordo Barfield MD [facility] Start: 09-04-2024 End: 09-04-2024 Bamboo flowsheet Gordo Barfield MD Work Phone: [facility] Start: 09-01-2024 End: 09-02-2024 Refill Lynne Ni MD Work Phone: Rheumatology Comment on above: Refill Request Start: 08-29-2024 End: 08-29-2024 ambulatory [facility] Facility:[facility] Start: 08-28-2024 End: 08-28-2024 Telephone encounter Vaibhav Carvalho APRN.MRI TECHNICIAN Work Phone: Hematology/Oncology Comment on above: Lab Orders Start: 08-24-2024 End: 08-24-2024 Clinisync Result Encounter Gordo Barfield MD Work Phone: [facility] External Department Unsolicited Start: 08-24-2024 End: 08-24-2024 Clinisync Result Encounter Gordo Barfield MD Work Phone: [facility] External Department Unsolicited Start: 08-22-2024 End: 08-22-2024 ambulatory Gay Enciso QUALITY CLOTH TESTER-C Work Phone: [facility] Work Phone: Start: 08-22-2024 End: 08-22-2024 Patient encounter procedure Gay GALEANO Work Phone: [facility] Work Phone: Start: 08-17-2024 End: 08-17-2024 Specialty Pharmacy Aidee Quintanilla [facility] Comment on above: SPP Inflammatory Conditions - Medication Refill (Benlysta) Start: 08-08-2024 End: 08-08-2024 Telephone encounter Basia Samuel RN Hematology/Oncology Comment on above: Patient Question Start: 08-08-2024 End: 08-08-2024 ambulatory Chair 3 Gabbi Work Phone: Hematology/Oncology Comment on above: Elevated sed rate (Primary Dx); Megaloblastic anemia due to vitamin B12 deficiency; Frequent infections; Hypogammaglobulinemia (HCC); Bilateral leg weakness; Discoid lupus erythematosus Start: 08-03-2024 End: 08-07-2024 Refill Marky Barnes PA-C Work Phone: Otolaryngology Comment on above: Med Change Request Start: 07-31-2024 End: 07-31-2024 ambulatory Gay GALEANO Work Phone: [facility] [place] Work Phone: Start: 07-31-2024 End: 07-31-2024 Patient encounter procedure Gay GALEANO Work Phone: [facility] Work Phone: Start: 07-26-2024 End: 07-26-2024 Office outpatient visit 25 minutes Lois Holm MD Work Phone: [facility] Comment on above: Sinus tachycardia (Primary Dx); Shortness of breath; Paroxysmal supraventricular tachycardia (CMS-HCC); Essential hypertension; Obstructive sleep apnea syndrome; Morbid obesity (Multi); Current smoker Start: 07-26-2024 End: 07-26-2024 ambulatory SAENZ [facility] Ambulatory Start: 07-25-2024 End: 07-25-2024 Bamboo flowsheet Bernabe English MD Work Phone: [facility] Start: 07-25-2024 End: 07-25-2024 Bamboo flowsheet Bernabe English MD Work Phone: [facility] Start: 07-25-2024 End: 07-25-2024 Office outpatient visit 25 minutes Bernabe English MD Work Phone: [facility] Comment on above: Hidradenitis suppurativa (Primary Dx); Other seborrheic dermatitis; Lupus erythematosus tumidus (CMS/HCC); Rash and other nonspecific skin eruption; Capillary angioma; Neoplasm of uncertain behavior of skin Start: 07-25-2024 End: 07-25-2024 Specialty Pharmacy Aidee Quintanilla [facility] Comment on above: SPP Inflammatory Conditions - Medication Refill (Benlysta) Start: 07-20-2024 End: 07-20-2024 Telemedicine consultation with patient Alhaji Head DO Work Phone: Infectious Disease Start: 07-20-2024 End: 07-20-2024 ambulatory Alhaji Head DO Work Phone: Infectious Disease Comment on above: Nipple discharge (Primary Dx); Other systemic lupus erythematosus with other organ involvement (HCC); On prednisone therapy; Long-term use of Plaquenil Start: 07-19-2024 Non-patient / Non-visit Gay GALEANO Work Phone: [facility] Work Phone: Start: 07-19-2024 End: 07-19-2024 Admission to same day surgery center Gay LINC Work Phone: [facility] Work Phone: Start: 07-19-2024 End: 07-19-2024 ambulatory Gay GALEANO Work Phone: [facility] Work Phone: Start: 07-12-2024 End: 07-12-2024 ambulatory MANUEL FERRIS Facility:[facility] Start: 07-12-2024 End: 07-12-2024 Patient encounter procedure Marky Barnes PA-C Work Phone: Otolaryngology Comment on above: LPRD (laryngopharyngeal reflux disease); Dry mouth; Current smoker; Abnormal mouth sensation Start: 07-11-2024 End: 07-12-2024 ambulatory Chair 3 Gabbi Work Phone: Hematology/Oncology Comment on above: Elevated sed rate (Primary Dx); Megaloblastic anemia due to vitamin B12 deficiency; Frequent infections; Hypogammaglobulinemia (HCC); Bilateral leg weakness; Discoid lupus erythematosus Start: 07-10-2024 End: 07-10-2024 ambulatory [facility] Work Phone: Start: 07-10-2024 End: 07-10-2024 [facility] Work Phone: Start: 07-09-2024 End: 07-10-2024 Telephone encounter Lynne Ni MD Work Phone: Rheumatology Comment on above: Results Start: 06-30-2024 End: 06-30-2024 ambulatory MANUEL FERRIS Facility:[facility] Start: 06-29-2024 End: 06-29-2024 Specialty Pharmacy Aidee Quintanilla [facility] Comment on above: SPP Inflammatory Conditions - Medication Refill (Benlysta) Start: 06-20-2024 End: 06-23-2024 ambulatory [facility] Comment on above: Iron Infusions Start: 06-20-2024 End: 06-21-2024 E-mail encounter from caregiver [facility] Start: 06-20-2024 End: 06-23-2024 Patient encounter procedure Lynne Ni MD Work Phone: Rheumatology Comment on above: Flair Start: 06-16-2024 End: 06-20-2024 Telephone encounter Vaibhav Carvalho APRN.CNP Work Phone: Hematology/Oncology Start: 06-15-2024 End: 06-15-2024 Telephone encounter Oly WARREN Work Phone: [facility] Start: 06-14-2024 End: 06-14-2024 Nursing evaluation of patient and report Breath Test Silverio Cp Nsg Wl Work Phone: [facility] Comment on above: Diarrhea, unspecified type (Primary Dx); Abdominal pressure Start: 06-13-2024 End: 06-13-2024 Office outpatient visit 25 minutes Vaibhav Carvalho APRN.TRUE Work Phone: Hematology/Oncology Comment on above: Megaloblastic [...] 06-12-2024 End: 06-13-2024 Telephone encounter Vaibhav Carvalho APRN.MRI TECHNICIAN Work Phone: Hematology/Oncology Comment on above: Lab Orders Start: 06-06-2024 End: 06-06-2024 Bamboo flowsheet Oly WARREN Work Phone: [facility] Start: 06-06-2024 End: 06-10-2024 Bamboo flowsheet Oly WARREN Work Phone: [facility] Start: 06-06-2024 End: 06-10-2024 Clinisync Result Encounter Oly WARREN Work Phone: [facility] External Department Unsolicited Start: 06-06-2024 End: 06-06-2024 Specialty Pharmacy Aidee Quintanilla [facility] Comment on above: SPP Inflammatory Conditions - Medication Refill (Benlysta) Start: 06-06-2024 End: 06-06-2024 Patient encounter procedure Oly WARREN Work Phone: [facility] Work Phone: Start: 06-06-2024 End: 06-06-2024 Periodic preventive med est patient 40-64yrs Oly WARREN Work Phone: [facility] Comment on above: Well woman exam with routine gynecologic al exam; Breast cancer screening by mammogram; Breast nodule Start: 05-19-2024 End: 05-19-2024 ambulatory Chair 3 Gabbi Work Phone: Hematology/Oncology Comment on above: Frequent infections (Primary Dx); Megaloblastic anemia due to vitamin B12 deficiency; Elevated sed rate; Hypogammaglobulinemia (HCC); Bilateral leg weakness; Discoid lupus erythematosus Start: 05-16-2024 End: 05-16-2024 Orders Only Vaibhav Carvalho APRN.MRI TECHNICIAN Work Phone: Hematology/Oncology Start: 05-15-2024 End: 05-15-2024 Social Work Deisy Jaime [facility] Hematology/Oncology Start: 05-12-2024 End: 05-12-2024 Specialty Pharmacy Aidee Quintanilla [facility] Comment on above: SPP Inflammatory Conditions - Medication Refill (Benlysta) Start: 04-28-2024 End: 04-28-2024 Orders Only Peppre Cotter LPN [facility] Comment on above: Peripheral vascular disease, unspecified (CMS-HCC) (Primary Dx); Cold extremities; Systemic lupus erythematosus (CMS-HCC) Start: 04-26-2024 End: 04-26-2024 ambulatory MANUEL Batista [facility] Facility:[facility] Start: 04-26-2024 End: 04-26-2024 Nursing evaluation of patient and report Cele Marshall Work Phone: Hematology/Oncology Comment on above: Elevated sed rate (Primary Dx); Megaloblastic anemia due to vitamin B12 deficiency Start: 04-14-2024 End: 10-05-2024 Telephone encounter [facility] Work Phone: [facility] Comment on above: Patient Update; Appointment Start: 04-11-2024 End: 04-11-2024 Specialty Pharmacy Aidee Quintanilla [facility] Comment on above: SPP Inflammatory Conditions - Medication Refill (Benlysta) Start: 04-10-2024 End: 04-10-2024 Bamboo flowsheet Gordo Barfield MD Work Phone: [facility] Start: 04-10-2024 End: 04-10-2024 Bamboo flowsqian Barfield MD Work Phone: [facility] Start: 04-10-2024 End: 04-10-2024 Telephone encounter Vera Najera MD Work Phone: [facility] Comment on above: Appointment Start: 04-10-2024 End: 04-10-2024 Office outpatient visit 25 minutes Gordo Barfield MD Work Phone: [facility] Comment on above: LPRD (laryngopharyngeal reflux disease) (Primary Dx); Acute otalgia, right Start: 04-10-2024 End: 04-10-2024 ambulatory GORDO BARFIELD Not Available Start: 04-07-2024 End: 04-07-2024 Social Work Deisy Jaime [employer] Hematology/Oncology Start: 04-06-2024 End: 04-06-2024 Clinisync Result Encounter Oly WARREN Work Phone: [facility] External Department Unsolicited Start: 04-06-2024 End: 04-06-2024 Clinisync Result Encounter Oly WARREN Work Phone: [facility] External Department Unsolicited Start: 04-06-2024 End: 04-06-2024 Office outpatient new 30 minutes Hayden Arciniega MD Work Phone: [facility] Comment on above: Systemic lupus erythematosus (CMS-HCC) ( Primary Dx); Cold extremities; Pain of lower extremity, unspecified laterality; Rheumatoid arthritis, involving unspecified site, unspecified whether rheumatoid factor present ([facility]-HCC); Current smoker; 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 Start: [...] 03-30-2024 ambulatory Maico Douglas MD Work Phone: [facility] Start: 03-27-2024 End: [...] Start: 03-27-2024 End: 03-28-2024 ambulatory MANUEL FERRIS Facility:[facility] Start: 03-23-2024 End: 03-23-2024 ambulatory OLY PLASCENCIA Not Available Start: 03-23-2024 End: 03-23-2024 Office outpatient visit 15 minutes Oly WARREN Work Phone: [facility] Comment on above: Abnormal uterine bleeding (AUB); Menorrhagia with regular cycle Start: 03-23-2024 End: 03-23-2024 Bamboo flowsheet Oly WARREN Work Phone: [facility] Start: 03-23-2024 End: 03-23-2024 Bamboo flowsheet Oly WARREN Work Phone: [facility] Start: 03-23-2024 End: 03-23-2024 Nursing evaluation of patient and report Ma Nurse Dre Marshall Work Phone: Hematology/Oncology Comment on above: Elevated sed rate (Primary Dx); Megaloblastic anemia due to vitamin B12 deficiency Start: 03-23-2024 End: 03-23-2024 ambulatory [facility] Facility:[facility] Start: 03-20-2024 End: 03-30-2024 Telephone encounter Akiko Cooper MD Work Phone: [facility] Start: 03-18-2024 End: 03-18-2024 [facility] Facility:[facility] Start: 03-18-2024 End: 03-18-2024 Patient encounter [...] both feet; Long-term use of high-risk medication; prison 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; Bilateral hand [...] Not Available Start: 03-16-2024 End: 03-16-2024 ambulatory QUALITY CLOTH TESTER-C Gay Enciso Work Phone: [facility] Work Phone: Start: 03-16-2024 End: 03-16-2024 Patient encounter procedure QUALITY CLOTH TESTER-C Gay Enciso Work Phone: [facility] Work Phone: Start: 03-13-2024 End: 03-13-2024 Specialty Pharmacy Aidee Quintanilla [facility] Comment on above: SPP Inflammatory Conditions - Medication Refill (Benlysta - NCA 09/2024) Start: 03-08-2024 End: 03-08-2024 ambulatory AB [facility] Start: 03-07-2024 End: 03-08-2024 Chart [facility]ing [facility] Work Phone: Neurology Comment on above: cmn Start: 03-02-2024 End: 03-02-2024 Refill Zita Rogers QUALITY CLOTH TESTER Work Phone: [facility] Comment on above: Lumbosacral radiculopathy at L5; Degenerative disc disease, lumbar; Cervical radiculopathy at C5 Start: 02-28-2024 End: 02-28-2024 ambulatory QUALITY CLOTH TESTER-C Gay Enciso Work Phone: [facility] Work Phone: Start: 02-28-2024 End: 02-28-2024 Patient encounter procedure QUALITY CLOTH TESTER-C Gay Enciso Work Phone: [facility] Work Phone: Start: 02-22-2024 End: 02-22-2024 Telephone encounter Oly Elam Ananya Work Phone: [facility] Comment on above: 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 ) Start: 02-21-2024 End: 02-21-2024 Nursing evaluation of patient and report Ma Nurse Dre Marshall Work Phone: Hematology/Oncology Comment on above: Elevated sed rate (Primary Dx); Megaloblastic anemia due to vitamin B12 deficiency Start: 02-21-2024 End: 02-21-2024 ambulatory [facility] Facility:[facility] Start: 02-18-2024 End: 02-18-2024 Telephone encounter Lynne Ni MD Work Phone: Rheumatology Start: 02-16-2024 Non-patient / Non-visit QUALITY CLOTH TESTER-C Gay Enciso Work Phone: [facility] Work Phone: Start: 02-16-2024 End: 02-16-2024 Admission to same day surgery center QUALITY CLOTH TESTER-C Gay Enciso Work Phone: [facility] Work Phone: Start: 02-16-2024 End: 02-16-2024 ambulatory QUALITY CLOTH TESTER-C Gay Enciso Work Phone: [facility] Work Phone: Start: 02-15-2024 End: 02-15-2024 Telephone encounter Lexus Heck APRN.CNP Work Phone: Neurology Comment on above: Orders (PAP RX.) Start: 02-14-2024 End: 02-14-2024 Follow-up encounter Aidee Quintanilla [facility] Comment on above: SPP Inflammatory Conditions - Follow-up (Benlysta); Insurance Authorization ([place] Renewal Submitted) Start: 02-14-2024 End: 02-14-2024 ambulatory Lexus Heck APRN.MRI TECHNICIAN Work Phone: Neurology Comment on above: JOSE RAFAEL (obstructive sleep apnea) (Primary D x); Somnolence, daytime SPP Inflammatory Con ditions - Medication Refill (Benlysta - NCA 09/2024) Start: 02-14-2024 End: 02-14-2024 Telemedicine consultation with patient Lexus Heck APRN.MRI TECHNICIAN Work Phone: Neurology Start: 02-09-2024 End: 02-09-2024 Bamboo flowsheet Zita Rogers QUALITY CLOTH TESTER Work Phone: [facility] Start: 02-09-2024 End: 02-09-2024 Bamboo flowsheet Zita Rogers QUALITY CLOTH TESTER Work Phone: [facility] Start: 02-09-2024 End: 02-09-2024 ambulatory ZITA ROGERS Not Available Start: 02-09-2024 End: 02-09-2024 Phys/qhp telephone evaluation 21-30 min Zita Rogers QUALITY CLOTH TESTER Work Phone: [facility] 210 Comment on above: Lumbosacral radiculopathy at L5 (Primary Dx); Degenerative disc disease, lumbar; Cervical radiculopathy at C5 Start: 02-07-2024 End: 02-07-2024 Refill Zita Rogers QUALITY CLOTH TESTER Work Phone: [facility] 210 Comment on above: Autoimmune disease (CMS/HCC); Fibromyalgia; Numbness Start: 01-28-2024 End: 01-31-2024 ambulatory Alhaji Head DO Work Phone: [facility] Work Phone: Comment on above: Blood work Start: 01-28-2024 End: 01-28-2024 Patient encounter procedure [facility] Work Phone: Start: 01-27-2024 End: 01-27-2024 Telemedicine consultation with patient Alhaji Head DO Work Phone: Infectious Disease Start: 01-27-2024 End: 01-27-2024 ambulatory lAhaji Head DO Work Phone: Infectious Disease Comment on above: Pseudomonas infection (Primary Dx); Other systemic lupus erythematosus with other organ involvement (HCC); On prednisone therapy; Long-term use of Plaquenil Start: 01-25-2024 End: 01-25-2024 Nursing evaluation of patient and report Ma Nurse Dre Marshall Work Phone: Hematology/Oncology Comment on above: Elevated sed rate (Primary Dx); Megaloblastic anemia due to vitamin B12 deficiency Start: 01-25-2024 End: 01-25-2024 [facility] Start: 01-20-2024 End: 01-20-2024 Refill Kade Richardson MD Work Phone: [facility] 210 Comment on above: Degenerative disc disease, lumbar (Prima ry Dx); Lumbosacral radiculopathy at L5 Start: 01-18-2024 End: 01-19-2024 Specialty Pharmacy Aidee Quintanilla [facility] Comment on above: SPP Inflammatory Conditions - Medication Refill (Benlysta) Start: 01-12-2024 End: 01-12-2024 ambulatory Lynne Ni MD Work Phone: Rheumatology Start: 01-12-2024 End: 01-12-2024 Patient encounter procedure Lynne Ni MD Work Phone: Rheumatology Comment on above: Flair Start: 12-30-2023 Telephone encounter Lynne Ni MD Work Phone: Rheumatology Comment on above: Results Start: 12-27-2023 Telephone encounter Juli Narayanan PA-C Work Phone: Hematology/Oncology Comment on above: Results Start: 12-27-2023 End: 12-27-2023 Nursing evaluation of patient and report Cele Marshall Work Phone: Hematology/Oncology Comment on above: Elevated sed rate (Primary Dx); Megaloblastic anemia due to vitamin B12 deficiency Start: 12-27-2023 End: 12-27-2023 Office outpatient visit 15 minutes Juli Narayanan PA-C Work Phone: Hematology/Oncology Comment on above: 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); Elevated sed rate; Obstructive sleep apnea syndrome Start: 12-27-2023 End: 12-27-2023 ambulatory MANUEL FERRIS Facility:[facility] Start: 12-24-2023 End: 12-24-2023 ambulatory [facility] Ambulatory Start: 12-21-2023 End: 12-21-2023 ambulatory ZITA ROGERS Not Available Start: 12-16-2023 End: 12-16-2023 ambulatory [facility] Work Phone: Start: 12-16-2023 End: 12-16-2023 Patient encounter procedure [facility] Work Phone: Start: 12-15-2023 End: 12-15-2023 ambulatory ZITA ROGERS Not Available Start: 12-13-2023 Specialty Pharmacy Aidee Quintanilla [facility] Comment on above: SPP Inflammatory Conditions - Medication Refill (Benlysta - NCA 09/2024) Start: 12-04-2023 End: 12-04-2023 ambulatory DIGNA PRICE Not Available Start: 11-29-2023 End: 11-29-2023 ambulatory MANUEL FERRIS Facility:[facility] Start: 11-29-2023 End: 11-29-2023 Nursing evaluation of patient and report Cele Marshall Work Phone: Hematology/Oncology Comment on above: Elevated sed rate (Primary Dx); Megaloblastic anemia due to vitamin B12 deficiency Start: 11-25-2023 ambulatory Vera Najera MD Work Phone: Hematology/Oncology Comment on above: Folic acid Start: 11-24-2023 End: 11-24-2023 ambulatory MANUEL FERRIS Facility:[facility] Start: 11-15-2023 End: 11-15-2023 Specialty Pharmacy Aidee Quintanilla [facility] Comment on above: SPP Inflammatory Conditions - Medication Refill (Benlysta - NCA 09/2024) Start: 11-11-2023 Refill Lynne Ni MD Work Phone: Rheumatology Comment on above: Refill Request Start: 11-08-2023 End: 11-08-2023 ambulatory ZITA ROGERS Not Available Start: 11-04-2023 End: 11-04-2023 ambulatory [facility] Work Phone: Start: 11-04-2023 End: 11-04-2023 Patient encounter procedure [facility] Work Phone: Start: 10-27-2023 End: 10-27-2023 Nursing evaluation of patient and report Ma Nurse Dre Marshall Work Phone: Hematology/Oncology Comment on above: Elevated sed rate (Primary Dx); Megaloblastic anemia due to vitamin B12 deficiency Start: 10-27-2023 End: 10-28-2023 ambulatory Lynne Ni MD Work Phone: Rheumatology Start: 10-27-2023 Patient encounter procedure Lynne Ni MD Work Phone: Rheumatology Comment on above: Cdiff Start: 10-21-2023 End: 10-21-2023 ambulatory KADE RICHARDSON Not Available Start: 10-20-2023 End: 10-20-2023 ambulatory [facility] Work Phone: Start: 10-20-2023 End: 10-20-2023 Patient encounter procedure [facility] Work Phone: Start: 10-12-2023 Specialty Pharmacy Aidee Quintanilla [facility] Comment on above: SPP Inflammatory Conditions - Medication Refill (Benlysta) Start: 10-05-2023 End: 10-05-2023 Patient encounter procedure [...] of Plaquenil; Long-term use of high-risk medication; 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; 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; Bilateral hand pain; History of vitamin D deficiency Start: 10-05-2023 End: 10-05-2023 Telemedicine consultation with patient Lynne Ni MD Work Phone: Rheumatology Start: 09-30-2023 End: 09-30-2023 Nursing evaluation of patient and report Cele Marshall Work Phone: Hematology/Oncology Comment on above: Elevated sed rate (Primary Dx); Megaloblastic anemia due to vitamin B12 deficiency Start: 09-22-2023 End: 09-22-2023 Patient encounter procedure [facility] Work Phone: Start: 09-13-2023 End: 09-13-2023 Specialty Pharmacy Aidee Quintanilla [facility] Comment on above: SPP Inflammatory Conditions - Medication Refill (Benlysta) Start: 09-09-2023 End: 09-10-2023 ambulatory Vera Najera MD Work Phone: Hematology/Oncology Comment on above: 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); Obstructive sleep apnea syndrome; Chronic fatigue and malaise; High total serum IgM; JOSE RAFAEL (obstructive sleep apnea); Somnolence, daytime Start: 09-09-2023 End: 09-10-2023 Telemedicine consultation with patient Vera Najera MD Work Phone: [facility] Start: 09-04-2023 Telephone encounter Lynne Ni MD Work Phone: Rheumatology Comment on above: Results Start: 08-31-2023 End: 08-31-2023 Nursing evaluation of patient and report Cele Marshall Work Phone: Hematology/Oncology Comment on above: 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); Elevated sed rate Start: 08-12-2023 Specialty Pharmacy Aideeradu Quintanilla [facility] Comment on above: SPP Inflammatory Conditions - Medication Refill (Benlysta ) Start: 08-05-2023 End: 08-05-2023 Nursing evaluation of patient and report Cele Butcher Dre Marshall Work Phone: Hematology/Oncology Comment on above: 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); Elevated sed rate Start: 07-28-2023 Non-patient / Non-visit [facility] anne marie [facility] Gastroenterology Work Phone: Start: 07-13-2023 ambulatory Aidee Quintanilla [facility] Start: 07-13-2023 End: 07-13-2023 Nursing evaluation of patient and report Cele Butcher Dre Marshall Work Phone: Hematology/Oncology Comment on above: 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); Elevated sed rate SPP Inflammatory Con ditions - Medication Refill (Benlysta ) Start: 07-13-2023 End: 07-13-2023 Office outpatient new 45 minutes Lois Holm MD Work Phone: [facility] Comment on above: Shortness of breath (Primary Dx); Paroxysmal supraventricular tachycardia; PAC (premature atrial contraction); Current smoker; Systemic lupus erythematosus, unspecified SLE type, unspecified organ involvement status (CMS/HCC); Palpitations; Obstructive sleep apnea syndrome; Morbid obesity (CMS/HCC); Bilateral lower extremity edema Start: 07-06-2023 End: 07-06-2023 Office outpatient visit 25 minutes Kade Richardson MD Work Phone: [facility] 210 Comment on above: Autoimmune disease (CMS/HCC) (Primary Dx ); Autonomic dysfunction; Lumbosacral radiculopathy; Bilateral leg weakness Start: 07-05-2023 Chart abstracting Kade Richardson MD Work Phone: [facility] 210 Start: 06-09-2023 End: 06-09-2023 Office outpatient new 60 minutes Michelle Lnodon Mitali ANIMATION DIRECTOR-MRI TECHNICIAN Work Phone: [facility] Comment on above: Irregular heart rate (Primary Dx); Essential hypertension; Autonomic dysfunction; Obstructive sleep apnea syndrome; Primary hypertension Start: 05-26-2023 End: 05-26-2023 Office outpatient visit 40 minutes Christie Phan MD Work Phone: Integrated [facility] Comment on above: Obesity, Class III, BMI >= 40 (Primary D x); Other chronic pain Start: 04-26-2023 End: 04-26-2023 Office outpatient visit 40 minutes Christie Phan MD Work Phone: [facility] Comment on above: Obesity, Class III, BMI >= 40 (Primary D x); FUO (fever of unknown origin); Other chronic pain Start: 04-26-2023 ambulatory Christie Phan MD Work Phone: [facility] Comment on above: Phentermine Start: 04-22-2023 Telephone encounter Enma Hamm RN Hematology/Oncology Comment on above: Results Start: 04-16-2023 [...] evaluation of patient and report Nurse Mora [facility] Nickie Work Phone: Rheumatology Comment on above: Systemic lupus erythematosus, unspecifie d SLE type, unspecified organ involvement status (HCC) (Primary Dx) Start: 03-01-2023 Telephone encounter Lynne Ni MD Work Phone: [...] deficiency; Elevated sed rate; Bilateral wrist pain; prison 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; Steroid-induced osteoporosis; 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 Start: 02-04-2023 Patient encounter procedure Clinton Schroeder (Pharmacist) [facility] Comment on above: SPP Inflammatory Conditions - Treatment Referral (Benlysta); Insurance Authorization ([place] submission pending) Start: 02-04-2023 Telephone encounter Lynne Ni MD Work Phone: Rheumatology Comment on above: Appointment; Orders; Medication Authoriz ation Start: 02-04-2023 End: 02-04-2023 Telemedicine consultation with patient Lynne Ni MD Work Phone: [facility] Start: 01-28-2023 Refill Christie Phan MD Work Phone: Integrated Medicine Comment on above: Refill Request Start: 01-24-2023 Telephone encounter Lynne Ni MD Work Phone: Rheumatology Comment on above: Results Start: 01-22-2023 End: 01-22-2023 Nursing evaluation of patient and report Ma Nurse Dre Joanna Work Phone: Hematology/Oncology Comment on above: 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); Elevated sed rate Start: 01-17-2023 Orders Only Vera Najera MD Work Phone: Hematology/Oncology Comment [...] with patient Misty Nelson MD Work Phone: [facility] Start: 12-24-2022 Refill Christie Phan MD Work Phone: Integrated Medicine Comment on above: Refill Request Start: 12-18-2022 Telephone encounter Lidia Argueta RN Work Phone: Hematology/Oncology Comment on above: Care Coordination (appointment) Start: 12-17-2022 End: 12-18-2022 ambulatory Rebekah Rojas ANIMATION DIRECTOR.MRI TECHNICIAN Work Phone: Hematology/Oncology Comment on above: 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); Chronic fatigue and malaise Start: 12-17-2022 End: 12-18-2022 Telemedicine consultation with patient Rebekah Rojas APRN.MRI TECHNICIAN Work Phone: [facility] Start: 12-16-2022 Telephone encounter Pamella Bettencourt RN Work Phone: Hematology/Oncology Comment on above: Appointment Start: 12-08-2022 ambulatory Vera Najera MD Work Phone: Hematology/Oncology Comment on above: Test results Start: 12-08-2022 Telephone encounter Enma Hamm RN Hematology/Oncology Comment on above: Results Start: 11-22-2022 ambulatory Lynne Ni MD Work Phone: Rheumatology Comment on above: update Start: 11-19-2022 End: 11-19-2022 Nursing evaluation of patient and report Cele Butcher Dre Marshall Work Phone: Hematology/Oncology Comment on above: 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); Elevated sed rate Start: 10-22-2022 End: 10-22-2022 Nursing evaluation of patient and report Cele Butcher Dre Marshall Work Phone: Hematology/Oncology Comment [...] of patient and report Cele Butcher Dre Marshall Work Phone: Hematology/Oncology Comment on above: 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); Elevated sed rate Start: 09-10-2022 End: 09-10-[address] MANUEL FERRIS . Facility:[facility] Start: 09-08-2022 Telephone encounter Angelia [facility] Delivery - Compliance Comment on above: Compliance Adherence Start: 09-07-2022 End: 09-07-2022 Office outpatient visit 40 minutes Christie Phan MD Work Phone: [facility] Comment on above: Obesity, Class III, BMI >= 40 (Primary D x); Polypharmacy; Pre-diabetes Start: 09-01-2022 End: 09-02-[address] MANUEL FERRIS . Facility: Start: 08-29-2022 Refill Lynne Ni MD Work Phone: Rheumatology Comment on above: Refill Request Start: 08-27-2022 End: 08-27-2022 Nursing evaluation of patient and report Nh Nurse Dre Joanna Work Phone: Hematology/Oncology Comment on above: 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); Elevated sed rate Start: 08-27-2022 End: 08-27-2022 ambulatory Rebekah Rojas APRN.MRI TECHNICIAN Work Phone: Hematology/Oncology Comment on above: 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); Elevated sed rate; High total serum IgM; Chronic fatigue and malaise; JOSE RAFAEL (obstructive sleep apnea) Start: 08-27-2022 End: 08-27-2022 Patient encounter procedure Rebekah Rojas APRN.MRI TECHNICIAN Work Phone: [facility] Start: 08-19-2022 Telephone encounter Lynne Ni MD Work Phone: Rheumatology Comment on above: Results Start: 08-15-2022 ambulatory Lynne Ni MD Work Phone: Rheumatology Comment on above: update Start: 08-10-2022 Refill Christie Phan MD Work Phone: [facility] Comment on above: Refill Request Start: 07-27-2022 End: 07-27-2022 ambulatory Lexus Heck APRN.MRI TECHNICIAN Work Phone: Neurology Comment on above: JOSE RAFAEL (obstructive sleep apnea) (Primary D x) Start: 07-27-2022 End: 07-27-2022 Telemedicine consultation with patient Lexus Heck APRN.MRI TECHNICIAN Work Phone: [facility] Start: 07-24-2022 ambulatory Lynne Ni MD Work Phone: Rheumatology Comment on above: Blood work Start: 07-24-2022 Telephone encounter Vera Najera MD Work Phone: Hematology/Oncology Comment on above: Orders (Lab Orders Before Appoint ment) Start: 07-21-2022 ambulatory Lawanda Miranda MD Work Phone: [facility] Start: 07-21-2022 Patient encounter procedure [...] Cpap Start: 05-05-2022 Telephone encounter Jami Rivera [facility] Comment on above: PAP Therapy Follow Up PAP Rx Faxed (YUNIOR Reese) Start: 04-24-2022 Telephone encounter Ny Lance MD Work Phone: [facility] Comment on above: Future Appointment (Scheduling questions /concerns) Start: 04-22-2022 Telephone encounter Eliza Licea Research Coordinator [facility] Comment on above: Appointment; Civil Transportation Engineer - Other Start: 03-31-2022 End: 04-01-[address] MANUEL FERRIS . Facility: Start: 03-31-2022 Refill Christie Phan MD Work Phone: [facility] Comment on above: Refill Request Start: 03-30-2022 ambulatory Misty Nelson MD Work Phone: Allergy Comment on above: Pneumovax Start: 03-30-2022 E-mail encounter from caregiver Misty Nelson MD Work Phone: [place] Start: 03-26-2022 Telephone encounter Misty Nelson MD Work Phone: Allergy Comment on above: Pneumovax Start: 03-21-2022 End: 03-21-[address] EL ROSSI . Facility:[facility] Start: 03-18-2022 End: 03-18-2022 ambulatory Vera Najera MD Work Phone: Hematology/Oncology Comment on above: 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); High total serum IgM A1c Start: 03-18-2022 E-mail encounter from caregiver Christie Phan MD Work Phone: [facility] Start: 03-18-2022 End: 03-18-2022 Patient encounter procedure Vera Najera MD Work Phone: [facility] Start: 03-12-2022 End: 03-13-[address] MANUEL FERRIS . Facility:[facility] Start: 03-10-2022 End: 03-10-2022 ambulatory Alhaji Adilene DO Work Phone: Infectious Disease Comment on above: results Raised level of immu noglobulins (Primary Dx); Wound healing, delayed; Current smoker Start: 03-10-2022 E-mail encounter from caregiver Alhaji Kelseyjuancarlos LIVE Work Phone: [facility] Start: 03-10-2022 End: 03-10-2022 Telemedicine consultation with patient Misty Nelson MD Work Phone: [place] Start: 03-09-2022 End: 03-10-2022 ambulatory GAY ENCISO Facility:[facility] Start: 03-09-2022 End: 03-09-2022 Office consultation new/estab patient 80 min Christie Phan MD Work Phone: [facility] Comment on above: Obesity, Class II, BMI 35-39.9 (Primary Dx); Somnolence, daytime; Chronic fatigue and malaise; Obesity, unspecified classification, unspecified obesity type, unspecified whether serious comorbidity present; Snoring; POTS (postural orthostatic tachycardia syndrome); Elevated glucose; Raised level of immunoglobulins Start: 03-06-2022 Telephone encounter Alhaji Head DO Work Phone: Infectious Disease Comment on above: Opened In Error Start: 03-05-2022 ambulatory Lynne Ni MD Work Phone: Rheumatology Comment on above: results Start: 03-05-2022 Telephone encounter Lynne Ni MD Work Phone: [...] encounter procedure Vera Najera MD Work Phone: [facility] Start: 03-02-2022 Chart abstracting Vera Najera MD Work Phone: Hematology/Oncology Start: 03-02-2022 Telephone encounter Milena Gandara MD Work Phone: Infectious Disease Comment on above: Opened In Error Start: 02-24-2022 End: 02-24-2022 ambulatory Alhaji Head DO Work Phone: Infectious Disease Comment on above: Swelling of lymph nodes (Primary Dx); Other systemic lupus erythematosus with other organ involvement (HCC); On prednisone therapy; Hair loss; Bilateral sacroiliitis (HCC); Long-term use of Plaquenil Start: 02-24-2022 End: 02-24-2022 Telemedicine consultation with patient Alhaji Head DO Work Phone: [facility] Start: 02-14-2022 End: 02-15-[address] MANUEL FERRIS . Facility:[facility] Start: 11-26-2021 End: 11-26-2021 ambulatory Mirela Kelsey Other [email or web address] Other Start: 11-26-2021 Office outpatient visit 25 minutes Mirela LOPEZ Infectious Disease Start: [...] 10-15-2021 End: 10-15-2021 ambulatory Mirela Kelsey Other [email or web address] Other Start: 10-15-2021 Office outpatient visit 25 minutes Mirela Kelsey [facility] Start: 10-03-2021 End: [address] MIRELA KELSEY Facility:[facility] Start: 09-18-2021 End: 09-18-2021 ambulatory Mirela Kelsey Other [email or web address] Other Start: 09-18-2021 Telephone encounter Mirela LOPEZ Infectious Disease Start: 09-11-2021 End: 09-11-2021 ambulatory Mirela Kelsey Other [email or web address] Other Start: 09-11-2021 Office outpatient new 45 minutes Mirela Kelsey [facility] Start: 10-07-2020 End: 10-08-2020 ambulatory JONAS HOLLEY [facility] Start: 10-07-2020 End: 10-07-2020 Subsequent hospital visit by physician [employer] Rm A [facility] [employer] Comment on above: Arrived Start: 09-14-2018 End: 09-17-2018 Patient encounter procedure VICTOR MANUEL GUZMAN [facility] Procedures Date Procedure Procedure Detail Performing Clinician Start: 10-02-2024 Blood count complete automated Lynne Ni MD Work Phone: Start: 10-02-2024 C-reactive protein Christie Ni MD Work Phone: Start: 09-06-2024 Assay of gammaglobul in iga igd igg igm each Vaibhav Carvalho ANIMATION DIRECTOR.MRI TECHNICIAN Work Phone: Start: 08-24-2024 Us soft tissue head & neck real time imge docm Gordo Barfield MD Work Phone: Start: 07-19-2024 Injection of local anesthetic into sacroiliac joint Gay Enciso QUALITY CLOTH TESTER-C Work Phone: Start: 06-13-2024 Blood count complete auto&auto difrntl wbc Vaibhav Carvalho ANIMATION DIRECTOR.MRI TECHNICIAN Work Phone: Start: 06-06-2024 IGP,APTIMA HPV,AGE GDLN [...] Injection of local anesthetic into sacroiliac joint QUALITY CLOTH TESTER-C Gay Enciso Work Phone: Start: 07-13-2023 Ecg routine ecg w/le ast 12 lds w/i&r Lois Holm MD Work Phone: Start: 06-09-2023 Ecg routine ecg w/le ast 12 lds w/i&r Michelle Jasmine APRN-MRI TECHNICIAN Work Phone: Start: 09-10-2022 Microscopic observat ion [Identifier] in Cervix by Cyto stain Luan Skip [facility] Work Phone: Start: 09-10-2022 Cytp cerv/vag auto t hin layer prep mnl screen Luan Skip Work Phone: Start: 10-07-2020 End: 10-07-2020 Cardiac [...] 09-11-2027 Screening for malignant neoplasm of cervix [facility] Start: 06-06-2027 Screening for malignant neoplasm of cervix [facility] Start: 09-10-2025 Screening for malignant neoplasm of cervix Pap Smear [facility] Start: 07-26-2025 End: 07-26-2025 Patient encounter procedure 07/26/2025 11:00 AM EST Office Visit [facility] [address] [facility] [address] [place] [address] Lois Holm MD [address] [facility] [address] [place] [address] [facility] Start: 07-25-2025 End: 07-25-2025 Patient encounter procedure 07/25/2025 11:00 AM EST Office Visit [facility] [address] [place] [address] Bernabe English MD [address] [place] [address] [facility] Start: 04-07-2025 Screening for malignant neoplasm of breast Mammogram [facility] Start: 04-06-2025 Adult BMI Screening Adult BMI Screening [facility] Start: 04-06-2025 Screening for malignant neoplasm of breast Mammogram [facility] Start: 04-06-2025 Tobacco Screening Tobacco Screening [facility] Start: 03-17-2025 Diabetes mellitus screening Diabetes Screening [facility] Start: 01-22-2025 Influenza vaccination Influenza Vaccine (Season Ended) [facility] Start: 01-06-2025 End: 10-06-2025 25-hydroxyvitamin D3 [Mass/volume] in Serum or Plasma VITAMIN D 25 HYDROXY Lab Routine Vitamin D deficiency Expected: 01/06/2025 (Approximate), Expires: 10/06/2025 [facility] Comment on above: Expected: 01/06/2025 (Approximate), Expi res: 10/06/2025 Start: 01-06-2025 End: 10-06-2025 BLOOD TB SCREEN BLOOD TB SCREEN Lab Routine Screening-pulmonary TB Expected: 01/06/2025 (Approximate), Expires: 10/06/2025 [facility] Comment on above: Expected: 01/06/2025 (Approximate), Expi res: 10/06/2025 Start: 01-06-2025 End: 10-06-2025 C reactive protein [Mass/volume] in Serum or Plasma C-REACTIVE PROTEIN Lab Routine Elevated sed rate Elevated C-reactive protein (CRP) Expected: 01/06/2025 (Approximate), Expires: 10/06/2025 [facility] Comment on above: Expected: 01/06/2025 (Approximate), Expi res: 10/06/2025 Start: 01-06-2025 End: 10-06-2025 CBC panel - Blood by Automated count COMPLETE BLOOD COUNT Lab Routine Anemia of chronic disease Expected: 01/06/2025 (Approximate), Expires: 10/06/2025 [facility] Comment on above: Expected: 01/06/2025 (Approximate), Expi res: 10/06/2025 Start: 01-06-2025 End: 10-06-2025 Chronic hepatitis differentiation between hepatitis B and C virus panel - Serum or Plasma HEP REMOTE PANEL BL Lab Routine Elevated LFTs Expected: 01/06/2025 (Approximate), Expires: 10/06/2025 [facility] Comment on above: Expected: 01/06/2025 (Approximate), Expi res: 10/06/2025 Start: 01-06-2025 End: 10-06-2025 Cobalamin (Vitamin B12) [Mass/volume] in Serum or Plasma VITAMIN B12 Lab Routine Vitamin B12 deficiency Expected: 01/06/2025 (Approximate), Expires: 10/06/2025 [facility] Comment on above: Expected: 01/06/2025 (Approximate), Expi res: 10/06/2025 Start: 01-06-2025 End: 10-06-2025 Comprehensive metabolic 2000 panel - Serum or Plasma COMPREHENSIVE METABOLIC PANEL Lab Routine Elevated LFTs Expected: 01/06/2025 (Approximate), Expires: 10/06/2025 [facility] Work Phone: Comment on above: Expected: 01/06/2025 (Approximate), Expi res: 10/06/2025 Start: 01-06-2025 End: 10-06-2025 Erythrocyte sedimentation rate SEDIMENTATION RATE, WESTERGREN Lab Routine Elevated sed rate Elevated C-reactive protein (CRP) Expected: 01/06/2025 (Approximate), Expires: 10/06/2025 [facility] Comment on above: Expected: 01/06/2025 (Approximate), Expi res: 10/06/2025 Start: 11-29-2024 End: 11-29-2024 ambulatory Hematology/Oncology Comment on above: 3 mo F/U-IVIG(slow infusion per pt reque st/B12 +/-IV iron lab Start: 11-29-2024 End: 11-29-2024 Patient encounter procedure 11/29/2024 8:45 AM EDT Office Visit [facility] [address] [place] [address] [place] [address] 3 mo F/U-IVIG(slow infusion per pt request/B12 +/-IV iron lab [facility] Comment on above: 3 mo F/U-IVIG(slow infusion per pt reque st/B12 +/-IV iron lab Start: 11-20-2024 Influenza vaccination Influenza Vaccine (#1) [facility] Comment on above: Postponed from 01/23/2024 (Patient Refus ed) Start: 11-01-2024 End: 11-01-2024 ambulatory 11/01/2024 9:00 AM EDT Infusion Center Hematology/Oncology [address] [place] [address] [place] [address] IVIG q 4 weeks with B 12 inj and lab Hematology/Oncology Comment on above: IVIG q 4 weeks with B 12 inj and lab Start: 10-19-2024 End: 10-19-2024 ambulatory 10/19/2024 2:00 PM EDT Infusion Center Hematology/Oncology [address] [place] [address] [place] [address] BENLYSTA - IVIG AND BENLYSTA AT LEAST 1 DAY APART FOR FUTURE APPTS Hematology/Oncology Comment on above: BENLYSTA - IVIG AND BENLYSTA AT LEAST 1 DAY APART FOR FUTURE APPTS Start: 10-18-2024 End: 10-18-2024 Specialty Pharmacy 10/18/2024 10:00 AM EDT Specialty Pharmacy [facility] [address] [place] [address] [place], [place] [id number] [place] [address] Pharmacist, [facility] [address] [place] [address] [place] [address] REFILL- Benlysta- PAx 02/11/25- - mult call attempts [facility] Comment on above: REFILL- Benlysta- PAx 02/11/25- - mult call attempts Start: 10-07-2024 End: 10-07-2024 Follow-up encounter 10/07/2024 8:00 AM EDT [facility] [address] [place] [address] Lynne Ni MD [address] [place] [address] follow up visit Rheumatology Comment on above: follow up visit Start: 10-06-2024 End: 07-09-2025 25-hydroxyvitamin D3 [Mass/volume] in Serum or Plasma VITAMIN D 25 HYDROXY Lab Routine Vitamin D deficiency Expected: 10/06/2024 (Approximate), Expires: 07/09/2025 [facility] Comment on above: Expected: 10/06/2024 (Approximate), Expi res: 07/09/2025 Start: 10-06-2024 End: 07-09-2025 C reactive protein [Mass/volume] in Serum or Plasma C-REACTIVE PROTEIN Lab Routine Elevated sed rate Elevated C-reactive protein (CRP) Expected: 10/06/2024 (Approximate), Expires: 07/09/2025 [facility] Comment on above: Expected: 10/06/2024 (Approximate), Expi res: 07/09/2025 Start: 10-06-2024 End: 07-09-2025 CBC panel - Blood by Automated count COMPLETE BLOOD COUNT Lab Routine Anemia of chronic disease Expected: 10/06/2024 (Approximate), Expires: 07/09/2025 [facility] Comment on above: Expected: 10/06/2024 (Approximate), Expi res: 07/09/2025 Start: 10-06-2024 End: 07-09-2025 Comprehensive metabolic 2000 panel - Serum or Plasma COMPREHENSIVE METABOLIC PANEL Lab Routine Elevated LFTs Expected: 10/06/2024 (Approximate), Expires: 07/09/2025 [facility] Work Phone: Comment on above: Expected: 10/06/2024 (Approximate), Expi res: 07/09/2025 Start: 10-06-2024 End: 07-09-2025 Erythrocyte sedimentation rate SEDIMENTATION RATE, WESTERGREN Lab Routine Elevated sed rate Elevated C-reactive protein (CRP) Expected: 10/06/2024 (Approximate), Expires: 07/09/2025 [facility] Comment on above: Expected: 10/06/2024 (Approximate), Expi res: 07/09/2025 Start: 2024 End: 2024 ambulatory Hematology/Oncology Comment on above: IVIG q 4 weeks with B 12 inj and lab BENLYSTA - IVIG AND BENLYSTA AT LEAST 1 DAY APART FOR FUTURE APPTS REFILL- Benlysta- PA x 02/11/25- - LVM 09/20, 09/25, 09/27 Start: 10-02-2024 End: 10-02-2024 ambulatory 10/02/2024 9:00 AM EDT Infusion Center Hematology/Oncology [address] [place] [address] [place] [address] IVIG q 4 weeks with B 12 inj and lab Hematology/Oncology Comment on above: IVIG q 4 weeks with B 12 inj and lab Start: 09-28-2024 End: 09-28-2024 Specialty Pharmacy 09/28/2024 10:00 AM EDT Specialty Pharmacy [facility] [address] [place], [place] [id number] Pharmacist, [facility] [address] [place] [address] [place] [address] REFILL- Benlysta- PAx 02/11/25- urs - LVM 09/20, 09/25 [facility] Comment on above: REFILL- Benlysta- PAx 02/11/25- thursdays - LVM 09/20, 09/25 Start: 09-25-2024 End: 09-25-2024 Specialty Pharmacy 09/25/2024 10:15 AM EDT Specialty Pharmacy [facility] [address] [place] [id number] Pharmacist, [facility] [address] [place] [address] [place] [address] REFILL- Benlysta- PAx 02/11/25- urs - LVM 09/20 [facility] Comment on above: REFILL- Benlysta- PAx 02/11/25- ursdays - LVM 09/20 Start: 09-20-2024 End: 09-20-2024 Specialty Pharmacy 09/20/2024 10:15 AM EDT Specialty Pharmacy [facility] [address] [place] [id number] Pharmacist, [facility] [address] [place] [address] [place] [place] [address] REFILL- Benlysta- PAx 02/11/25- - pend new Rx [facility] Comment on above: REFILL- Benlysta- PAx 02/11/25- - pend new Rx Start: 09-19-2024 End: 09-19-2024 Patient encounter procedure [facility] Comment on above: hEDS with concerns and wants CTD evaluat ion Start: 09-18-2024 End: 09-18-2024 Specialty Pharmacy [facility] Comment on above: REFILL- Benlysta- PAx 02/11/25 BENLYSTA Start: 09-06-2024 End: 09-06-2024 ambulatory 09/06/2024 9:30 AM EDT Infusion Center Hematology/Oncology [address] [place] [address] 3 mo F/U-IVIG(slow infusion per pt request/B12 +/-IV iron Hematology/Oncology Comment on above: 3 mo F/U-IVIG(slow infusion per pt reque st/B12 +/-IV iron Start: 09-06-2024 End: 09-06-2024 Follow-up encounter Hematology/Oncology Comment on above: 3 month follow up IVIG for hypogammaglob ulinemia + b12 Start: 09-06-2024 End: 09-06-2024 Patient encounter procedure 09/06/2024 8:45 AM EDT Office Visit [facility] [address] [place] [address] [place] [address] 3 month follow up IVIG for hypogammaglobulinemia + b12 [facility] Comment on above: 3 month follow up IVIG for hypogammaglob ulinemia + b12 Start: 09-05-2024 End: 09-05-2024 Follow-up encounter Hematology/Oncology Comment on above: 3 month follow up IVIG for hypogammaglob ulinemia + b12 Start: 09-05-2024 End: 09-05-2024 Patient encounter procedure 09/05/2024 8:45 AM EDT Office Visit [facility] [address] [place] [address] [place] [address] 3 month follow up IVIG for hypogammaglobulinemia + b12 [facility] Comment on above: 3 month follow up IVIG for hypogammaglob ulinemia + b12 Start: 09-04-2024 End: 09-04-2024 Patient encounter procedure 09/04/2024 3:20 PM EDT Office Visit [facility] [address] [place] [id number] Gordo Barfield MD [address] [facility] [address] [place] [address] Arrived [facility] Comment on above: Arrived Start: 08-28-2024 End: 11-27-2024 CBC W Auto Differential panel - Blood COMPLETE BLOOD COUNT AND DIFFERENTIAL Lab Routine Vitamin B12 deficiency Other iron deficiency anemia Hypogammaglobulinemia (HCC) Expected: 08/28/2024, Expires: 11/27/2024 [facility] Work Phone: Comment on above: Expected: 08/28/2024, Expires: Start: 08-28-2024 End: 11-27-2024 Cobalamin (Vitamin B12) [Mass/volume] in Serum or Plasma VITAMIN B12 Lab Routine Vitamin B12 deficiency Other iron deficiency anemia Hypogammaglobulinemia (HCC) Expected: 08/28/2024, Expires: 11/27/2024 [facility] Comment on above: Expected: 08/28/2024, Expires: Start: 08-28-2024 End: 11-27-2024 Comprehensive metabolic 2000 panel - Serum or Plasma COMPREHENSIVE METABOLIC PANEL Lab Routine Vitamin B12 deficiency Other iron deficiency anemia Hypogammaglobulinemia (HCC) Expected: 08/28/2024, Expires: 11/27/2024 [facility] Comment on above: Expected: 08/28/2024, Expires: Start: 08-28-2024 End: 11-27-2024 Ferritin [Mass/volume] in Serum or Plasma FERRITIN Lab Routine Vitamin B12 deficiency Other iron deficiency anemia Hypogammaglobulinemia (HCC) Expected: 08/28/2024, Expires: 11/27/2024 [facility] Comment on above: Expected: 08/28/2024, Expires: Start: 08-28-2024 End: 11-27-2024 Folate [Mass/volume] in Serum or Plasma FOLATE, SERUM Lab Routine Vitamin B12 deficiency Other iron deficiency anemia Hypogammaglobulinemia (HCC) Expected: 08/28/2024, Expires: 11/27/2024 [facility] Comment on above: Expected: 08/28/2024, Expires: Start: 08-28-2024 End: 11-27-2024 IgG [Mass/volume] in Serum or Plasma IMMUNOGLOBULIN G Lab Routine Vitamin B12 deficiency Other iron deficiency anemia Hypogammaglobulinemia (HCC) Expected: 08/28/2024, Expires: 11/27/2024 [facility] Comment on above: Expected: 08/28/2024, Expires: Start: 08-28-2024 End: 11-27-2024 Iron and Iron binding capacity panel - Serum or Plasma IRON AND TIBC Lab Routine Vitamin B12 deficiency Other iron deficiency anemia Hypogammaglobulinemia (HCC) Expected: 08/28/2024, Expires: 11/27/2024 [facility] Comment on above: Expected: 08/28/2024, Expires: Start: 08-22-2024 End: 08-22-2024 Patient encounter procedure 08/22/2024 1:30 PM EDT Office Visit [facility] [address] [place] [address] Raj Kitchen MD [address] [place] [address] [facility] Start: 08-22-2024 End: 08-22-2024 Specialty Pharmacy 08/22/2024 10:15 AM EDT Specialty Pharmacy [facility] [email or web address] [address] [address] Pharmacist, [facility] [address] [place] [address] [place] [address] REFILL- Benlysta- PAx 02/11/25 lvm 08/17 [facility] Comment on above: REFILL- Benlysta- PAx 02/11/2508/17 Start: 08-17-2024 End: 08-17-2024 Specialty Pharmacy 08/17/2024 10:00 AM EDT Specialty Pharmacy [facility] [address] [place] [address] Pharmacist, [facility] [address] [place] [address] [place] [address] REFILL- Benlysta- PAx 02/11/25 [facility] Comment on above: REFILL- Benlysta- PAx 02/11/25 Start: 08-15-2024 End: 08-15-2024 Patient encounter procedure 08/15/2024 10:20 AM EDT Office Visit [facility] [address] [facility] 130 [place] [address] Godro Barfield MD [address] [facility] [address] [place] [address] [facility] Start: 08-08-2024 End: 08-08-2024 ambulatory 08/08/2024 9:30 AM EDT Infusion Center Hematology/Oncology [address] [place] [address] [place] [address] IVIG for hypogammaglobulinemia + b12 Hematology/Oncology Comment on above: IVIG for hypogammaglobulinemia + b12 Start: 08-01-2024 End: 08-01-2024 Patient encounter procedure 08/01/2024 10:30 AM EDT Office Visit [facility] [address] [place] [address] Bernabe English MD [address] [place] [address] [facility] Start: 07-25-2024 End: 07-25-2024 Specialty Pharmacy [facility] Comment on above: REFILL- Benlysta- PAx 02/11/25 Arrived Start: 07-20-2024 End: 07-20-2024 ambulatory 07/20/2024 11:30 AM [facility] Infectious Disease [address] [place] [address] Alhaji Head DO [address] [place] [address] Positive blood cultures [R78.81] Infectious Disease Comment on above: Positive blood cultures [R78.81] Start: 07-20-2024 End: 07-20-2024 Patient encounter procedure 07/20/2024 11:30 AM EST Office Visit Infectious Disease [address] [place] [id number] Alhaji Head DO [address] [place], [place] [id number] Positive blood cultures [R78.81] Infectious Disease Comment on above: Positive blood cultures [R78.81] Start: 07-19-2024 [facility] Start: 07-13-2024 End: 07-13-2024 Patient encounter procedure 07/13/2024 9:20 AM EST Office Visit [place] [address] [place] [address] Lois Holm MD [address] [facility] 2[address] [place] [address] [facility] Start: 07-12-2024 End: 07-12-2024 Patient encounter procedure 07/12/2024 2:40 PM EST Office Visit Otolaryngology [address] [place] [address] Marky Barnes PA-C [address] [place], [place] [id number] Recurrent Thrush. Otolaryngology Comment on above: Recurrent Thrush. Start: 07-11-2024 End: 07-11-2024 ambulatory 07/11/2024 9:30 AM EST Infusion Center Hematology/Oncology [address] [facility] [place] [address] IVIG for hypogammaglobulinemia + b12 Hematology/Oncology Comment on above: IVIG for hypogammaglobulinemia + b12 Start: 07-03-2024 End: 04-02-2025 25-hydroxyvitamin D3 [Mass/volume] in Serum or Plasma VITAMIN D 25 HYDROXY Lab Routine Vitamin D deficiency Expected: 07/03/2024 (Approximate), Expires: 04/02/2025 [facility] Comment on above: Expected: 07/03/2024 (Approximate), Expi res: 04/02/2025 Start: 07-03-2024 End: 04-02-2025 C reactive protein [Mass/volume] in Serum or Plasma C-REACTIVE PROTEIN Lab Routine Elevated sed rate Elevated C-reactive protein (CRP) Expected: 07/03/2024 (Approximate), Expires: 04/02/2025 [facility] Comment on above: Expected: 07/03/2024 (Approximate), Expi res: 04/02/2025 Start: 07-03-2024 End: 04-02-2025 CBC panel - Blood by Automated count COMPLETE BLOOD COUNT Lab Routine Anemia of chronic disease Expected: 07/03/2024 (Approximate), Expires: 04/02/2025 [facility] Comment on above: Expected: 07/03/2024 (Approximate), Expi res: 04/02/2025 Start: 07-03-2024 End: 04-02-2025 Comprehensive metabolic 2000 panel - Serum or Plasma COMPREHENSIVE METABOLIC PANEL Lab Routine Elevated LFTs Expected: 07/03/2024 (Approximate), Expires: 04/02/2025 [facility] Work Phone: Comment on above: Expected: 07/03/2024 (Approximate), Expi res: 04/02/2025 Start: 07-03-2024 End: 04-02-2025 Erythrocyte sedimentation rate SEDIMENTATION RATE, WESTERGREN Lab Routine Elevated sed rate Elevated C-reactive protein (CRP) Expected: 07/03/2024 (Approximate), Expires: 04/02/2025 [facility] Comment on above: Expected: 07/03/2024 (Approximate), Expi res: 04/02/2025 Start: 06-29-2024 End: 06-29-2024 Specialty Pharmacy 06/29/2024 10:00 AM EST Specialty Pharmacy [id number] [place] [address] Pharmacist, [facility]ty[facility] [address] [place] [address] [place] [address] REFILL- Benlysta- PAx 02/11/25 [facility] Comment on above: REFILL- Benlysta- PAx 02/11/25 Start: 06-26-2024 End: 06-26-2024 Nursing evaluation of patient and report 06/26/2024 9:45 AM EST Nurse Visit Hematology/Oncology [address] [facility] [place] [address] Cele Marshall Nurse Dre [address] [facility] [place] [place] [address] B12 Hematology/Oncology Comment on above: B12 Start: 06-26-2024 End: 06-26-2024 ambulatory Hematology/Oncology Comment on above: RTC 3 month IVIG for hypogammagl obulinemia Start: 06-26-2024 End: 06-26-2024 Patient encounter procedure 06/26/2024 8:45 AM EST Office Visit [facility] [address] [place] [address] [place] [address] labs [facility] Comment on above: labs Start: 06-14-2024 End: 06-14-2024 Nursing evaluation of patient and report [facility] Comment on above: Abdominal Pain/Diarrhea/Bandar S MRI TECHNICIAN order ed/Patient has prep thru MyChart//cc SIBO - Abdominal Gus n/Diarrhea/Bandar S MRI TECHNICIAN ordered/Patient has prep thru MyChart//cc Order in Scanned Documents Start: 06-13-2024 End: 09-12-2024 Cobalamin (Vitamin B12) [Mass/volume] in Serum or Plasma [facility] Comment on above: Expected: 06/13/2024, Expires: Start: 06-13-2024 End: 09-12-2024 Ferritin [Mass/volume] in Serum or Plasma [facility] Work Phone: Comment on above: Expected: 06/13/2024, Expires: Start: 06-13-2024 End: 09-12-2024 Folate [Mass/volume] in Serum or Plasma [facility] Comment on above: Expected: 06/13/2024, Expires: Start: 06-13-2024 End: 09-12-2024 Iron and Iron binding capacity panel - Serum or Plasma [facility] Comment on above: Expected: 06/13/2024, Expires: Start: 06-13-2024 End: 06-13-2024 Nursing evaluation of patient and report 06/13/2024 9:45 AM EST Nurse Visit Hematology/Oncology [address] [facility] [place] [place] [address] Joanna Nh Nurse Dre [address] [place] [address] B12 Hematology/Oncology Comment on above: B12 Start: 06-13-2024 End: 06-13-2024 ambulatory Hematology/Oncology Comment on above: RTC 3 month IVIG for hypogammagl obulinemia Start: 06-13-2024 End: 06-13-2024 Patient encounter procedure 06/13/2024 8:45 AM EST Office Visit [facility] [address] [place] [address] [place] [address] labs [facility] Comment on above: labs Start: 06-06-2024 End: 08-04-2025 MG Breast - bilateral Screening Bilateral screening mammogram Imaging Routine Breast cancer screening by mammogram Expected: 06/06/2024 (Approximate), Expires: 08/04/2025 [facility] Work Phone: Comment on above: Expected: 06/06/2024 (Approximate), Expi res: 08/04/2025 Start: 06-06-2024 End: 08-04-2025 MG Breast - left Diagnostic Left diagnostic mammogram Imaging Routine Breast nodule Expected: 06/06/2024 (Approximate), Expires: 08/04/2025 [facility] Comment on above: Expected: 06/06/2024 (Approximate), Expi res: 08/04/2025 Start: 06-06-2024 End: 06-06-2024 Patient encounter procedure [facility] Comment on above: REFILL- Benlysta- PAx 02/11/25 Start: 05-29-2024 End: 05-29-2024 Nursing evaluation of patient and report 05/29/2024 9:30 AM EST Nurse Visit Hematology/Oncology [address] [place] [address] [place] [address] Cele Marshall Nurse Dre [address] [facility] [place] [address] B12 Hematology/Oncology Comment on above: B12 Start: 05-19-2024 End: 05-19-2024 ambulatory 05/19/2024 9:30 AM EST Infusion Center Hematology/Oncology [address] [facility] [place] [place] [address] IVIG for hypogammaglobulinemia Hematology/Oncology Comment on above: IVIG for hypogammaglobulinemia Start: 05-12-2024 End: 05-12-2024 Specialty Pharmacy 05/12/2024 10:00 AM EST Specialty Pharmacy [facility] [id number] [place] [address] Pharmacist, [facility] [address] [place] [address] [place] [address] REFILL- Benlysta- PAx 02/11/25 [facility] Comment on above: REFILL- Benlysta- PAx 02/11/25 Start: 04-28-2024 End: 04-28-2025 US.doppler Extremity arteries - bilateral for physiologic artery study Vas art doppler lwr bilat mult lev/PVR Vascular Ultrasound Routine Peripheral vascular disease, unspecified (CMS-HCC) Cold extremities Systemic lupus erythematosus ([facility]-HCC) Expected: 04/28/2024, Expires: 04/28/2025 [facility] Work Phone: Comment on above: Expected: 04/28/2024, Expires: Start: 04-24-2024 End: 04-24-2024 Nursing evaluation of patient and report 04/24/2024 9:30 AM EST Nurse Visit Hematology/Oncology [address] [facility] [place] [address] Cele Marshall Nurse Dre [address] [facility] [place] [place] [address] B12 Hematology/Oncology Comment on above: B12 Start: 04-18-2024 End: 04-18-2024 Nursing evaluation of patient and report [facility] Comment on above: [...] lower extremity, unspecified laterality Systemic lupus erythematosus ([facility]-HCC) Expected: 04/06/2024, Expires: 2025 [facility] Work Phone: Comment on above: Expected: 04/06/2024, Expires: Start: 03-28-2024 End: 03-28-2024 ambulatory 03/28/2024 1:00 PM [facility] Hematology/Oncology [address] [place] [address] [place] [address] Vera Najera MD [address] [place] [address] [place] [address] 13 wk virtual after labs last week Hematology/Oncology Comment on above: 13 wk virtual after labs last week Start: 03-23-2024 End: 03-23-2025 aPTT in Blood by Coagulation assay APTT Lab Routine Menorrhagia with regular cycle Expected: 03/23/2024 (Approximate), Expires: 03/23/2025 [facility] Comment on above: Expected: 03/23/2024 (Approximate), Expi res: 03/23/2025 Start: 03-23-2024 End: 03-23-2025 US for US PELVIS-TRANSVAG IF INDICATED Imaging Routine Menorrhagia with regular cycle Expected: 03/23/2024 (Approximate), Expires: 03/23/2025 [facility] Comment on above: Expected: 03/23/2024 (Approximate), Expi res: 03/23/2025 Start: 03-21-2024 End: 03-21-2024 Nursing evaluation of patient and report 03/21/2024 11:45 AM EDT Nurse Visit Hematology/Oncology [address] [facility] [place] [place] [address] Cele Marshall Nurse Dre [address] [facility] [place] [place] [address] b12 Hematology/Oncology Comment on above: b12 Start: 03-21-2024 End: 03-21-2024 Patient encounter procedure 03/21/2024 11:15 AM EDT Office Visit [facility] [address] [facility] [place] [address] LAb [facility] Comment on above: LAb Start: 03-20-2024 End: 12-29-2024 25-hydroxyvitamin D3 [Mass/volume] in Serum or Plasma VITAMIN D 25 HYDROXY Lab Routine Vitamin D deficiency Expected: 03/20/2024 (Approximate), Expires: 12/29/2024 [facility] Comment on above: Expected: 03/20/2024 (Approximate), Expi res: 12/29/2024 Start: 03-20-2024 End: 12-29-2024 BLOOD TB SCREEN BLOOD TB SCREEN Lab Routine Screening-pulmonary TB Expected: 03/20/2024 (Approximate), Expires: 12/29/2024 [facility] Comment on above: Expected: 03/20/2024 (Approximate), Expi res: 12/29/2024 Start: 03-20-2024 End: 12-29-2024 C reactive protein [Mass/volume] in Serum or Plasma C-REACTIVE PROTEIN Lab Routine Elevated C-reactive protein (CRP) Elevated sed rate Expected: 03/20/2024 (Approximate), Expires: 12/29/2024 [facility] Comment on above: Expected: 03/20/2024 (Approximate), Expi res: 12/29/2024 Start: 03-20-2024 End: 06-19-2024 CBC W Auto Differential panel - Blood COMPLETE BLOOD COUNT AND DIFFERENTIAL Lab Routine Megaloblastic anemia due to vitamin B12 deficiency Elevated sed rate Obstructive sleep apnea syndrome Expected: 03/20/2024 (Approximate), Expires: 06/19/2024 [facility] Comment on above: Expected: 03/20/2024 (Approximate), Expi res: 06/19/2024 Start: 03-20-2024 End: 06-19-2024 Cobalamin (Vitamin B12) [Mass/volume] in Serum or Plasma VITAMIN B12 Lab Routine Megaloblastic anemia due to vitamin B12 deficiency Elevated sed rate Obstructive sleep apnea syndrome Expected: 03/20/2024 (Approximate), Expires: 06/19/2024 [facility] Comment on above: Expected: 03/20/2024 (Approximate), Expi res: 06/19/2024 Start: 03-20-2024 End: 06-19-2024 Comprehensive metabolic 2000 panel - Serum or Plasma COMPREHENSIVE METABOLIC PANEL Lab Routine Megaloblastic anemia due to vitamin B12 deficiency Elevated sed rate Obstructive sleep apnea syndrome Expected: 03/20/2024 (Approximate), Expires: 06/19/2024 [facility] Work Phone: Comment on above: Expected: 03/20/2024 (Approximate), Expi res: 06/19/2024 Start: 03-20-2024 End: 12-29-2024 Erythrocyte sedimentation rate SEDIMENTATION RATE, WESTERGREN Lab Routine Elevated C-reactive protein (CRP) Elevated sed rate Expected: 03/20/2024 (Approximate), Expires: 12/29/2024 [facility] Work Phone: Comment on above: Expected: 03/20/2024 (Approximate), Expi res: 12/29/2024 Start: 03-20-2024 End: 06-19-2024 Ferritin [Mass/volume] in Serum or Plasma FERRITIN Lab Routine Megaloblastic anemia due to vitamin B12 deficiency Elevated sed rate Obstructive sleep apnea syndrome Expected: 03/20/2024 (Approximate), Expires: 06/19/2024 [facility] Comment on above: Expected: 03/20/2024 (Approximate), Expi res: 06/19/2024 Start: 03-20-2024 End: 06-19-2024 Folate [Mass/volume] in Serum or Plasma FOLATE, SERUM Lab Routine Megaloblastic anemia due to vitamin B12 deficiency Elevated sed rate Obstructive sleep apnea syndrome Expected: 03/20/2024 (Approximate), Expires: 06/19/2024 [facility] Comment on above: Expected: 03/20/2024 (Approximate), Expi res: 06/19/2024 Start: 03-20-2024 End: 06-19-2024 IMMUNOGLOBULINS,IGG,IGA,IG M IMMUNOGLOBULINS,IGG,IGA,IG M Lab Routine Megaloblastic anemia due to vitamin B12 deficiency Elevated sed rate Obstructive sleep apnea syndrome Expected: 03/20/2024 (Approximate), Expires: 06/19/2024 [facility] Comment on above: Expected: 03/20/2024 (Approximate), Expi res: 06/19/2024 Start: 03-20-2024 End: 06-19-2024 Iron and Iron binding capacity panel - Serum or Plasma IRON AND TIBC Lab Routine Megaloblastic anemia due to vitamin B12 deficiency Elevated sed rate Obstructive sleep apnea syndrome Expected: 03/20/2024 (Approximate), Expires: 06/19/2024 [facility] Comment on above: Expected: 03/20/2024 (Approximate), Expi res: 06/19/2024 Start: 03-18-2024 End: 03-18-2024 Patient encounter procedure 03/18/2024 9:00 AM EDT [facility] Rheumatology [address] [place] [address] Lynne Ni MD [address] [place] [address] May offer 03/18/24 Sat [facility]J 4th floor in person/virtual/phone for lupus Rheumatology Comment on above: May offer 03/18/24 Sat [facility] 4th floor in person/virtual/phone for lupus Start: 03-16-2024 Patient referral [facility] Work Phone: Start: 03-16-2024 End: 05-16-2025 US Breast - bilateral Bilateral breast US complete Imaging Routine Nipple discharge Expected: 03/16/2024, Expires: 05/16/2025 [facility] Work Phone: Comment on above: Expected: 03/16/2024, Expires: Start: 03-16-2024 End: 03-16-2024 Specialty Pharmacy [facility] Comment on above: REFILL- Benlysta- PAx 02/11/25- NCA 5-l/m 03/13 Start: 03-13-2024 End: 03-13-2024 Specialty Pharmacy [facility] Comment on above: REFILL- Benlysta- PAx 02/04/24- NCA 10/10 24-, ND 02/23-renewal sub 02/13 REFILL- Benlysta- PA x 02/11/25- NCA 09/2024-, Start: 02-22-2024 End: 02-22-2024 Nursing evaluation of patient and report 02/22/2024 11:45 AM EDT Nurse Visit Hematology/Oncology [address] [place] [address] Cele Marshall Nurse Dre [address] [place] [address] b12 Hematology/Oncology Comment on above: b12 Start: 02-22-2024 End: 02-22-2024 Patient encounter procedure 02/22/2024 11:15 AM EDT Office Visit [facility] [address] [place] [address] LAb [facility] Comment on above: LAb Start: 02-21-2024 End: 02-21-2024 Nursing evaluation of patient and report 02/21/2024 10:45 AM EDT Nurse Visit Hematology/Oncology [address] [place] [address] Cele Marshall Nurse Dre [address] [place] [address] b12 Hematology/Oncology Comment on above: b12 Start: 02-21-2024 End: 02-21-2024 Patient encounter procedure 02/21/2024 10:30 AM EDT Office Visit [facility] [address] [place] [address] LAb [facility] Comment on above: LAb Start: 02-16-2024 [facility] Start: 02-14-2024 End: 02-14-2024 Follow-up encounter Neurology Comment on above: Cpap follow up REFILL- Benlysta- PA x 02/04/24- NCA 09/2024-urs, ND 02/23 Start: 02-09-2024 End: 02-09-2024 Patient encounter procedure 02/09/2024 8:00 AM EDT Office Visit [facility] [address] [facility] [address] [place] [address] Zita Rogers [employer]STER [address] [facility] [address] [place] [address] [facility] [address] Start: 01-27-2024 End: 04-27-2024 Bacteria identified in Blood by Culture BLOOD CULTURE Microbiology Routine Pseudomonas infection Expected: 01/27/2024, Expires: 04/27/2024 [facility] Work Phone: Comment on above: Expected: 01/27/2024, Expires: Start: 01-27-2024 End: 01-27-2024 Follow-up encounter 01/27/2024 10:00 AM EDT [facility] Infectious Disease [address] [place] [address] Alhaji Head DO [facility] [address] [place] [address] follow up Infectious Disease Comment on above: follow up Start: 01-25-2024 End: 01-25-2024 Nursing evaluation of patient and report Hematology/Oncology Comment on above: b12 B12(change date) Start: 01-25-2024 End: 01-25-2024 Patient encounter procedure [facility] Comment on above: LAb NO LAB ORDERS LAb Start: 01-24-2024 Influenza vaccination Influenza Vaccine (#1) [facility] Comment on above: Postponed from 01/22/2023 (Patient Refus ed) Start: 01-23-2024 Covid-19 Vaccine () Covid-19 Vaccine () [facility] Start: 01-23-2024 Covid-19 Vaccine ( season) Covid-19 Vaccine ( season) [facility] Start: 01-23-2024 Influenza vaccination [facility] Start: 01-20-2024 End: 01-20-2024 Specialty Pharmacy [facility] Comment on above: refill - benlysta- NCA 09/2024-- pa exp: 02/04/24- 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 Start: 12-27-2023 End: 12-27-2023 Nursing evaluation of patient and report 12/27/2023 12:00 PM EDT Nurse Visit Hematology/Oncology [address] [place] [address] Cele Marshall Nurse Dre [address] [place] [address] b12 Hematology/Oncology Comment on above: b12 Start: 12-27-2023 End: 12-27-2023 Follow-up encounter 12/27/2023 11:30 AM EDT Visit (SP) Office Hematology/Oncology [address] [place] [address] Juli Narayanan, PA-C [address] [place] [address] 13 week follow up, labs 1 week before Hematology/Oncology Comment on above: 13 week follow up, labs 1 week before Start: 12-27-2023 End: 12-27-2023 Patient encounter procedure 12/27/2023 11:15 AM EDT Office Visit [facility] [address] [place] [address] LAb [facility] Comment on above: LAb Start: 12-13-2023 End: 12-13-2023 Specialty Pharmacy 12/13/2023 10:00 AM EDT Specialty Pharmacy [facility]ference [id number] [place] [address] Pharmacist, [facility] [address] [place] [address] [place] [address] refill - benlysta- NCA 09/2024-- pa exp: 02/04/24- [facility] Comment on above: refill - benlysta- NCA - pa exp: 02/04/24- Start: 12-10-2023 End: 12-10-2023 Follow-up encounter 12/10/2023 10:45 AM EDT Visit (SP) Office Hematology/Oncology [address] [place] [address] Vera Najera MD [address] [facility] [place] [address] 13 week follow up, labs 1 week before Hematology/Oncology Comment on above: 13 week follow up, labs 1 week before Start: 12-04-2023 End: 09-03-2024 25-hydroxyvitamin D3 [Mass/volume] in Serum or Plasma VITAMIN D 25 HYDROXY Lab Routine Vitamin D deficiency Expected: 12/04/2023 (Approximate), Expires: 09/03/2024 [facility] Work Phone: Comment on above: Expected: 12/04/2023 (Approximate), Expi res: 09/03/2024 Start: 12-04-2023 End: 09-03-2024 C reactive protein [Mass/volume] in Serum or Plasma C-REACTIVE PROTEIN Lab Routine Elevated sed rate Elevated C-reactive protein (CRP) Expected: 12/04/2023 (Approximate), Expires: 09/03/2024 [facility] Work Phone: Comment on above: Expected: 12/04/2023 (Approximate), Expi res: 09/03/2024 Start: 12-04-2023 End: 09-03-2024 CBC panel - Blood by Automated count COMPLETE BLOOD COUNT Lab Routine Anemia of chronic disease Expected: 12/04/2023 (Approximate), Expires: 09/03/2024 [facility] Work Phone: Comment on above: Expected: 12/04/2023 (Approximate), Expi res: 09/03/2024 Start: 12-04-2023 End: 09-03-2024 Comprehensive metabolic 2000 panel - Serum or Plasma COMPREHENSIVE METABOLIC PANEL Lab Routine Elevated LFTs Expected: 12/04/2023 (Approximate), Expires: 09/03/2024 [facility] Work Phone: Comment on above: Expected: 12/04/2023 (Approximate), Expi res: 09/03/2024 Start: 12-04-2023 End: 09-03-2024 Erythrocyte sedimentation rate SEDIMENTATION RATE, WESTERGREN Lab Routine Elevated sed rate Elevated C-reactive protein (CRP) Expected: 12/04/2023 (Approximate), Expires: 09/03/2024 [facility] Work Phone: Comment on above: Expected: 12/04/2023 (Approximate), Expi res: 09/03/2024 Start: 12-03-2023 End: 12-03-2023 Nursing evaluation of patient and report 12/03/2023 11:00 AM EDT Nurse Visit Hematology/Oncology [address] [facility] [place] [address] Joanna Nh Nurse Dre [address] [facility] [place] [address] b12 Hematology/Oncology Comment on above: b12 Start: 12-03-2023 End: 12-03-2023 Patient encounter procedure 12/03/2023 10:45 AM EDT Office Visit [facility] [address] [place] [address] lab [facility] Comment on above: lab Start: 12-02-2023 End: 09-08-2024 CBC W Auto Differential panel - Blood COMPLETE BLOOD COUNT AND DIFFERENTIAL Lab Routine Megaloblastic anemia due to vitamin B12 deficiency High total serum IgM Expected: 12/02/2023 (Approximate), Expires: 09/08/2024 [facility] Work Phone: Comment on above: Expected: 12/02/2023 (Approximate), Expi res: 09/08/2024 Start: 12-02-2023 End: 09-08-2024 Cobalamin (Vitamin B12) [Mass/volume] in Serum or Plasma VITAMIN B12 Lab Routine Megaloblastic anemia due to vitamin B12 deficiency High total serum IgM Expected: 12/02/2023 (Approximate), Expires: 09/08/2024 [facility] Work Phone: Comment on above: Expected: 12/02/2023 (Approximate), Expi res: 09/08/2024 Start: 12-02-2023 End: 09-08-2024 Comprehensive metabolic 2000 panel - Serum or Plasma COMPREHENSIVE METABOLIC PANEL Lab Routine Megaloblastic anemia due to vitamin B12 deficiency High total serum IgM Expected: 12/02/2023 (Approximate), Expires: 09/08/2024 [facility] Work Phone: Comment on above: Expected: 12/02/2023 (Approximate), Expi res: 09/08/2024 Start: 12-02-2023 End: 03-02-2024 Erythrocyte sedimentation rate SEDIMENTATION RATE, WESTERGREN Lab Routine Megaloblastic anemia due to vitamin B12 deficiency High total serum IgM Expected: 12/02/2023 (Approximate), Expires: 03/02/2024 [facility] Work Phone: Comment on above: Expected: 12/02/2023 (Approximate), Expi res: 03/02/2024 Start: 12-02-2023 End: 09-08-2024 Ferritin [Mass/volume] in Serum or Plasma FERRITIN Lab Routine Megaloblastic anemia due to vitamin B12 deficiency High total serum IgM Expected: 12/02/2023 (Approximate), Expires: 09/08/2024 [facility] Work Phone: Comment on above: Expected: 12/02/2023 (Approximate), Expi res: 09/08/2024 Start: 12-02-2023 End: 09-08-2024 Folate [Mass/volume] in Serum or Plasma FOLATE, SERUM Lab Routine Megaloblastic anemia due to vitamin B12 deficiency High total serum IgM Expected: 12/02/2023 (Approximate), Expires: 09/08/2024 [facility] Work Phone: Comment on above: Expected: 12/02/2023 (Approximate), Expi res: 09/08/2024 Start: 12-02-2023 End: 03-02-2024 IgA [Mass/volume] in Serum or Plasma IMMUNOGLOBULIN A Lab Routine Megaloblastic anemia due to vitamin B12 deficiency High total serum IgM Expected: 12/02/2023 (Approximate), Expires: 03/02/2024 [facility] Work Phone: Comment on above: Expected: 12/02/2023 (Approximate), Expi res: 03/02/2024 Start: 12-02-2023 End: 03-02-2024 IgE [Units/volume] in Serum or Plasma IMMUNOGLOBULIN E Lab Routine Megaloblastic anemia due to vitamin B12 deficiency High total serum IgM Expected: 12/02/2023 (Approximate), Expires: 03/02/2024 [facility] Work Phone: Comment on above: Expected: 12/02/2023 (Approximate), Expi res: 03/02/2024 Start: 12-02-2023 End: 03-02-2024 IgG [Mass/volume] in Serum or Plasma IMMUNOGLOBULIN G Lab Routine Megaloblastic anemia due to vitamin B12 deficiency High total serum IgM Expected: 12/02/2023 (Approximate), Expires: 03/02/2024 [facility] Work Phone: Comment on above: Expected: 12/02/2023 (Approximate), Expi res: 03/02/2024 Start: 12-02-2023 End: 03-02-2024 IgM [Mass/volume] in Serum or Plasma IMMUNOGLOBULIN M Lab Routine Megaloblastic anemia due to vitamin B12 deficiency High total serum IgM Expected: 12/02/2023 (Approximate), Expires: 03/02/2024 [facility] Work Phone: Comment on above: Expected: 12/02/2023 (Approximate), Expi res: 03/02/2024 Start: 12-02-2023 End: 09-08-2024 Iron and Iron binding capacity panel - Serum or Plasma IRON AND TIBC Lab Routine Megaloblastic anemia due to vitamin B12 deficiency High total serum IgM Expected: 12/02/2023 (Approximate), Expires: 09/08/[address] [address] Work Phone: Comment on above: Expected: 12/02/2023 (Approximate), Expi res: 09/08/2024 Start: 11-29-2023 End: 11-29-2023 Nursing evaluation of patient and report 11/29/2023 2:15 PM EDT Nurse Visit Hematology/Oncology [address] [place] [address] Cele Marshall Nurse Dre [address] [address] [place], [place] [id number] b12 Hematology/Oncology Comment on above: b12 Start: 11-15-2023 End: 11-15-2023 Specialty Pharmacy 11/15/2023 10:00 AM EDT Specialty Pharmacy [facility] [address] [place] [id number] Pharmacist, [facility] [address] [place] [address] [place] [address] refill - benlysta- NCA 09/2024-- pa exp: 02/04/24- [facility] Comment on above: refill - benlysta- NCA 09/2024-- pa exp: 02/04/24- Start: 10-29-2023 End: 10-29-2023 Nursing evaluation of patient and report 10/29/2023 11:00 AM EDT Nurse Visit Hematology/Oncology [address] [facility] [place] [address] Cele Marshall Nurse Dre [address] [facility] [place] [address] b12 Hematology/Oncology Comment on above: b12 Start: 10-15-2023 End: 10-15-2023 Specialty Pharmacy 10/15/2023 10:00 AM EDT Specialty Pharmacy [facility] [address] [place] [id number] Pharmacist, [facility] [address] [place] [address] [place] [address] refill - benlysta-- pa exp: 02/04/24-l/m 10/11 [facility] Comment on above: refill - benlysta-Thursdays- pa exp: 01/22 08/14-l/m 10/11 Start: 10-12-2023 End: 10-12-2023 Specialty Pharmacy 10/12/2023 10:00 AM EDT Specialty Pharmacy [facility] [address] [place] [phone] Pharmacist, [facility] [address] [place] [address] [place] [address] refill - benlysta-Thursdays- pa exp: 02/04/24- [facility] Comment on above: refill - benlysta-Thursdays- pa exp: 01/22 08/14- Start: 10-05-2023 End: 10-05-2023 Patient encounter procedure 10/05/2023 8:00 AM EDT [facility] [address] [place] [address] Lynne Ni MD [address] [place] [address] 6 mo f/u for Lupus Rheumatology Comment on above: 6 mo f/u for Lupus Start: 10-01-2023 End: 10-01-2023 Nursing evaluation of patient and report 10/01/2023 11:00 AM EDT Nurse Visit Hematology/Oncology [address] [facility] [place] [address] Cele Marshall Nurse Dre [address] [facility] [place] [address] b12 Hematology/Oncology Comment on above: b12 Start: 09-16-2023 End: 09-16-2023 Specialty Pharmacy 09/16/2023 10:00 AM EDT Specialty Pharmacy [facility] [address] [place] [id number] Pharmacist, [facility] [address] [place] [address] [place] [address] refill - benlysta-Thursdays- pa exp: 02/04/24-lvm [facility] Comment on above: refill - benlysta-- pa exp: 01/22 08/14-lvm Start: 09-13-2023 End: 09-13-2023 Patient encounter procedure 09/13/2023 9:00 AM EDT Office Visit [facility] [address] [place] [phone] Kade Richardson MD [address] [facility] [address] [place] [address], [place] [address] [facility] Start: 07-19-2023 End: 07-19-2023 Patient encounter procedure [facility] Start: 07-15-2023 End: 07-15-2023 Patient encounter procedure 07/15/2023 10:50 AM EST Office Visit [facility] [address] [place] [address] Bernabe English MD [address] [place] [address] [facility] Start: 07-06-2023 End: 07-06-2023 Patient encounter procedure 07/06/2023 2:30 PM EST Office Visit [facility] [address] [place] [address], [place] [phone] Kade Richardson MD [address] [facility] [address] [place] [address], [place] [address] [facility]O [address] Start: 07-06-2023 End: 07-06-2024 Protein electrophoresis, serum Protein electrophoresis, serum Lab Routine Autoimmune disease (CMS/HCC) Autonomic dysfunction Expected: 07/06/2023 (Approximate), Expires: 07/06/2024 [facility] Work Phone: Comment on above: Expected: 07/06/2023 (Approximate), Expi res: 07/06/2024 Start: 07-06-2023 End: 07-06-2024 Protein electrophoresis, urine Protein electrophoresis, urine Lab Routine Autoimmune disease (CMS/HCC) Autonomic dysfunction Expected: 07/06/2023 (Approximate), Expires: 07/06/2024 [facility] Comment on above: Expected: 07/06/2023 (Approximate), Expi res: 07/06/2024 Start: 06-09-2023 End: 06-09-2024 Holter monitor study Holter Or Event [facility] Routine Irregular heart rate Expected: 06/09/2023 (Approximate), Expires: 06/09/2024 [facility] Work Phone: Comment on above: Expected: 06/09/2023 (Approximate), Expi res: 06/09/2024 Start: 06-09-2023 End: 06-09-2024 Lipid 1996 panel - Serum or Plasma Lipid Panel Lab Routine Primary hypertension Expected: 06/09/2023 (Approximate), Expires: 06/09/2024 [facility] Work Phone: Comment on above: Expected: 06/09/2023 (Approximate), Expi res: 06/09/2024 Start: 06-09-2023 End: 06-09-2024 Thyrotropin [Units/volume] in Serum or Plasma Thyroid Stimulating Hormone Lab Routine Irregular heart rate Expected: 06/09/2023 (Approximate), Expires: 06/09/2024 [facility] Work Phone: Comment on above: Expected: 06/09/2023 (Approximate), Expi res: 06/09/2024 Start: 06-09-2023 End: 06-09-2024 Thyroxine (T4) free [Mass/volume] in Serum or Plasma Thyroxine, Free Lab Routine Irregular heart rate Expected: 06/09/2023 (Approximate), Expires: 06/09/2024 [facility] Work Phone: Comment on above: Expected: 06/09/2023 (Approximate), Expi res: 06/09/2024 Start: 06-09-2023 End: 06-09-2025 US Heart Transthoracic Transthoracic Echo (TTE) Complete Echocardiography Routine Irregular heart rate Obstructive sleep apnea syndrome Expected: 06/09/2023 (Approximate), Expires: 06/09/2025 [facility] Work Phone: Comment on above: Expected: 06/09/2023 (Approximate), Expi res: 06/09/2025 Start: 04-25-2023 End: 01-25-2024 25-hydroxyvitamin D3 [Mass/volume] in Serum or Plasma VITAMIN D 25 HYDROXY Lab Routine Vitamin D deficiency Expected: 04/25/2023 (Approximate), Expires: 01/25/2024 [facility] Work Phone: Comment on above: Expected: 04/25/2023 (Approximate), Expi res: 01/25/2024 Start: 04-25-2023 End: 01-25-2024 C reactive protein [Mass/volume] in Serum or Plasma C-REACTIVE PROTEIN (CRP) Lab Routine Elevated sed rate Elevated C-reactive protein (CRP) Expected: 04/25/2023 (Approximate), Expires: 01/25/2024 [facility] Work Phone: Comment on above: Expected: 04/25/2023 (Approximate), Expi res: 01/25/2024 Start: 04-25-2023 End: 01-25-2024 CBC panel - Blood by Automated count CBC Lab Routine Anemia of chronic disease Expected: 04/25/2023 (Approximate), Expires: 01/25/2024 [facility] Work Phone: Comment on above: Expected: 04/25/2023 (Approximate), Expi res: 01/25/2024 Start: 04-25-2023 End: 01-25-2024 Comprehensive metabolic 2000 panel - Serum or Plasma COMP METABOLIC PANEL Lab Routine Elevated LFTs Expected: 04/25/2023 (Approximate), Expires: 01/25/2024 [facility] Work Phone: Comment on above: Expected: 04/25/2023 (Approximate), Expi res: 01/25/2024 Start: 04-25-2023 End: 01-25-2024 Erythrocyte sedimentation rate SED RATE WESTERGREN Lab Routine Elevated sed rate Elevated C-reactive protein (CRP) Expected: 04/25/2023 (Approximate), Expires: 01/25/2024 [facility] Work Phone: Comment on above: Expected: 04/25/2023 (Approximate), Expi res: 01/25/2024 Start: 04-20-2023 COVID-19 Vaccine (4 - Pfizer risk series) COVID-19 Vaccine (4 - Pfizer risk series) [facility] Start: 04-20-2023 Covid-19 Vaccine () Covid-19 Vaccine () [facility] Start: 04-20-2023 Covid-19 Vaccine () Covid-19 Vaccine () [facility] Start: 04-16-2023 End: 02-20-2024 CBC W Auto Differential panel - Blood CBC + DIFF Lab Routine Megaloblastic anemia due to vitamin B12 deficiency Elevated sed rate Chronic fatigue and malaise High total serum IgM JOSE RAFAEL (obstructive sleep apnea) Expected: 04/16/2023 (Approximate), Expires: 02/20/2024 [facility] Work Phone: Comment on above: Expected: 04/16/2023 (Approximate), Expi res: 02/20/2024 Start: 04-16-2023 End: 02-20-2024 Cobalamin (Vitamin B12) [Mass/volume] in Serum or Plasma VITAMIN B12 BLOOD Lab Routine Megaloblastic anemia due to vitamin B12 deficiency Elevated sed rate Chronic fatigue and malaise High total serum IgM JOSE RAFAEL (obstructive sleep apnea) Expected: 04/16/2023 (Approximate), Expires: 02/20/2024 [facility] Work Phone: Comment on above: Expected: 04/16/2023 (Approximate), Expi res: 02/20/2024 Start: 04-16-2023 End: 02-20-2024 Comprehensive metabolic 2000 panel - Serum or Plasma COMP METABOLIC PANEL Lab Routine Megaloblastic anemia due to vitamin B12 deficiency Elevated sed rate Chronic fatigue and malaise High total serum IgM JOSE RAFAEL (obstructive sleep apnea) Expected: 04/16/2023 (Approximate), Expires: 02/20/2024 [facility] Work Phone: Comment on above: Expected: 04/16/2023 (Approximate), Expi res: 02/20/2024 Start: 04-16-2023 End: 02-20-2024 Ferritin [Mass/volume] in Serum or Plasma FERRITIN BLD Lab Routine Megaloblastic anemia due to vitamin B12 deficiency Elevated sed rate Chronic fatigue and malaise High total serum IgM JOSE RAFAEL (obstructive sleep apnea) Expected: 04/16/2023 (Approximate), Expires: 02/20/2024 [facility] Work Phone: Comment on above: Expected: 04/16/2023 (Approximate), Expi res: 02/20/2024 Start: 04-16-2023 End: 02-20-2024 Folate [Mass/volume] in Serum or Plasma FOLATE SERUM Lab Routine Megaloblastic anemia due to vitamin B12 deficiency Elevated sed rate Chronic fatigue and malaise High total serum IgM JOSE RAFAEL (obstructive sleep apnea) Expected: 04/16/2023 (Approximate), Expires: 02/20/2024 [facility] Work Phone: Comment on above: Expected: 04/16/2023 (Approximate), Expi res: 02/20/2024 Start: 04-16-2023 End: 02-20-2024 Iron and Iron binding capacity panel - Serum or Plasma IRON + TIBC Lab Routine Megaloblastic anemia due to vitamin B12 deficiency Elevated sed rate Chronic fatigue and malaise High total serum IgM JOSE RAFAEL (obstructive sleep apnea) Expected: 04/16/2023 (Approximate), Expires: 02/20/2024 [facility] Work Phone: Comment on above: Expected: 04/16/2023 (Approximate), Expi res: 02/20/2024 Start: 03-23-2023 COVID-19 Vaccine (3 - Pfizer risk series) COVID-19 Vaccine (3 - Pfizer risk series) [facility] Start: 03-17-2023 Diabetes mellitus screening Diabetes Screening [facility] Start: 03-10-2023 End: 06-09-2023 Insulin [Units/volume] in Serum or Plasma INSULIN ASSAY BLOOD Lab Routine Insulin resistance, unspecified Expected: 03/10/2023, Expires: 06/09/2023 [facility] Work Phone: Comment on above: Expected: 03/10/2023, Expires: 4 Start: 03-10-2023 End: 06-09-2023 INSULIN ANTIBODY BLD INSULIN ANTIBODY BLD Lab Routine Insulin resistance, unspecified Expected: 03/10/2023, Expires: 06/09/2023 [facility] Work Phone: Comment on above: Expected: 03/10/2023, Expires: 4 Start: 02-11-2023 End: 02-08-2024 [id number] [Mass/volume] in Serum or Plasma B2 MICROGLOBULIN B Lab Routine Megaloblastic anemia due to vitamin B12 deficiency High total serum IgM Elevated sed rate Expected: 02/11/2023 (Approximate), Expires: 02/08/2024 [facility] Work Phone: Comment on above: Expected: 02/11/2023 (Approximate), Expi res: 02/08/2024 Start: 02-11-2023 End: 02-08-2024 Calcium.ionized [Moles/volume] in Blood CALCIUM IONIZED BLOOD Lab Routine Megaloblastic anemia due to vitamin B12 deficiency High total serum IgM Elevated sed rate Expected: 02/11/2023 (Approximate), Expires: 02/08/2024 [facility] Work Phone: Comment on above: Expected: 02/11/2023 (Approximate), Expi res: 02/08/2024 Start: 02-11-2023 End: 02-08-2024 CBC W Auto Differential panel - Blood CBC + DIFF Lab Routine Megaloblastic anemia due to vitamin B12 deficiency High total serum IgM Elevated sed rate Expected: 02/11/2023 (Approximate), Expires: 02/08/2024 [facility] Work Phone: Comment on above: Expected: 02/11/2023 (Approximate), Expi res: 02/08/2024 Start: 02-11-2023 End: 02-08-2024 Cobalamin (Vitamin B12) [Mass/volume] in Serum or Plasma VITAMIN B12 BLOOD Lab Routine Megaloblastic anemia due to vitamin B12 deficiency High total serum IgM Elevated sed rate Expected: 02/11/2023 (Approximate), Expires: 02/08/2024 [facility] Work Phone: Comment on above: Expected: 02/11/2023 (Approximate), Expi res: 02/08/2024 Start: 02-11-2023 End: 02-08-2024 Comprehensive metabolic 2000 panel - Serum or Plasma COMP METABOLIC PANEL Lab Routine Megaloblastic anemia due to vitamin B12 deficiency High total serum IgM Elevated sed rate Expected: 02/11/2023 (Approximate), Expires: 02/08/2024 [facility] Work Phone: Comment on above: Expected: 02/11/2023 (Approximate), Expi res: 02/08/2024 Start: 02-11-2023 End: 02-08-2024 Ferritin [Mass/volume] in Serum or Plasma FERRITIN BLD Lab Routine Megaloblastic anemia due to vitamin B12 deficiency High total serum IgM Elevated sed rate Expected: 02/11/2023 (Approximate), Expires: 02/08/2024 [facility] Work Phone: Comment on above: Expected: 02/11/2023 (Approximate), Expi res: 02/08/2024 Start: 02-11-2023 End: 02-08-2024 Folate [Mass/volume] in Serum or Plasma FOLATE SERUM Lab Routine Megaloblastic anemia due to vitamin B12 deficiency High total serum IgM Elevated sed rate Expected: 02/11/2023 (Approximate), Expires: 02/08/2024 [facility] Work Phone: Comment on above: Expected: 02/11/2023 (Approximate), Expi res: 02/08/2024 Start: 02-11-2023 End: 02-08-2024 Iron and Iron binding capacity panel - Serum or Plasma IRON + TIBC Lab Routine Megaloblastic anemia due to vitamin B12 deficiency High total serum IgM Elevated sed rate Expected: 02/11/2023 (Approximate), Expires: 02/08/2024 [facility] Work Phone: Comment on above: Expected: 02/11/2023 (Approximate), Expi res: 02/08/2024 Start: 02-11-2023 End: 04-13-2023 KAPPA/FARMER,FREE,SER KAPPA/FARMER,FREE,SER Lab Routine Megaloblastic anemia due to vitamin B12 deficiency High total serum IgM Elevated sed rate Expected: 02/11/2023 (Approximate), Expires: 04/13/2023 [facility] Work Phone: Comment on above: Expected: 02/11/2023 (Approximate), Expi res: 04/13/2023 Start: 02-11-2023 End: 02-08-2024 Lactate dehydrogenase [Enzymatic activity/volume] in Serum or Plasma LD LACTATE DEHYDRO Lab Routine Megaloblastic anemia due to vitamin B12 deficiency High total serum IgM Elevated sed rate Expected: 02/11/2023 (Approximate), Expires: 02/08/2024 [facility] Work Phone: Comment on above: Expected: 02/11/2023 (Approximate), Expi res: 02/08/2024 Start: 02-11-2023 End: 02-08-2024 MONOCLONAL PROTEIN, SERUM (BLOOD) MONOCLONAL PROTEIN, SERUM (BLOOD) Lab Routine Megaloblastic anemia due to vitamin B12 deficiency High total serum IgM Elevated sed rate Expected: 02/11/2023 (Approximate), Expires: 02/08/2024 [facility] Work Phone: Comment on above: Expected: 02/11/2023 (Approximate), Expi res: 02/08/2024 Start: 02-11-2023 End: 02-08-2024 Phosphate [Mass/volume] in Serum or Plasma PHOSPHORUS INORGANIC Lab Routine Megaloblastic anemia due to vitamin B12 deficiency High total serum IgM Elevated sed rate Expected: 02/11/2023 (Approximate), Expires: 02/08/2024 [facility] Work Phone: Comment on above: Expected: 02/11/2023 (Approximate), Expi res: 02/08/2024 Start: 02-11-2023 End: 02-08-2024 PROTEIN ELECTROPHORESIS SERUM W/INTERP PROTEIN ELECTROPHORESIS SERUM W/INTERP Lab Routine Megaloblastic anemia due to vitamin B12 deficiency High total serum IgM Elevated sed rate Expected: 02/11/2023 (Approximate), Expires: 02/08/2024 [facility] Work Phone: Comment on above: Expected: 02/11/2023 (Approximate), Expi res: 02/08/2024 Start: 02-11-2023 End: 02-08-2024 Urate [Mass/volume] in Serum or Plasma URIC ACID BLOOD Lab Routine Megaloblastic anemia due to vitamin B12 deficiency High total serum IgM Elevated sed rate Expected: 02/11/2023 (Approximate), Expires: 02/08/2024 [facility] Work Phone: Comment on above: Expected: 02/11/2023 (Approximate), Expi res: 02/08/2024 Start: 01-22-2023 Influenza vaccination [facility] Start: 12-17-2022 End: 10-23-2023 CBC W Auto Differential panel - Blood CBC + DIFF Lab Routine Megaloblastic anemia due to vitamin B12 deficiency Expected: 12/17/2022 (Approximate), Expires: 10/23/2023 [facility] Work Phone: Comment on above: Expected: 12/17/2022 (Approximate), Expi res: 10/23/2023 Start: 12-17-2022 End: 10-23-2023 Cobalamin (Vitamin B12) [Mass/volume] in Serum or Plasma VITAMIN B12 BLOOD Lab Routine Megaloblastic anemia due to vitamin B12 deficiency Expected: 12/17/2022 (Approximate), Expires: 10/23/2023 [facility] Work Phone: Comment on above: Expected: 12/17/2022 (Approximate), Expi res: 10/23/2023 Start: 12-17-2022 End: 10-23-2023 Comprehensive metabolic 2000 panel - Serum or Plasma COMP METABOLIC PANEL Lab Routine Megaloblastic anemia due to vitamin B12 deficiency Expected: 12/17/2022 (Approximate), Expires: 10/23/2023 [facility] Work Phone: Comment on above: Expected: 12/17/2022 (Approximate), Expi res: 10/23/2023 Start: 12-17-2022 End: 10-23-2023 Ferritin [Mass/volume] in Serum or Plasma FERRITIN BLD Lab Routine Megaloblastic anemia due to vitamin B12 deficiency Expected: 12/17/2022 (Approximate), Expires: 10/23/2023 [facility] Work Phone: Comment on above: Expected: 12/17/2022 (Approximate), Expi res: 10/23/2023 Start: 12-17-2022 End: 10-23-2023 Folate [Mass/volume] in Serum or Plasma FOLATE SERUM Lab Routine Megaloblastic anemia due to vitamin B12 deficiency Expected: 12/17/2022 (Approximate), Expires: 10/23/2023 [facility] Work Phone: Comment on above: Expected: 12/17/2022 (Approximate), Expi res: 10/23/2023 Start: 12-17-2022 End: 10-23-2023 Iron and Iron binding capacity panel - Serum or Plasma IRON + TIBC Lab Routine Megaloblastic anemia due to vitamin B12 deficiency Expected: 12/17/2022 (Approximate), Expires: 10/23/2023 [facility] Work Phone: Comment on above: Expected: 12/17/2022 (Approximate), Expi res: 10/23/2023 Start: 10-23-2022 End: 12-23-2022 25-hydroxyvitamin D3 [Mass/volume] in Serum or Plasma VITAMIN D 25 HYDROXY Lab Routine Megaloblastic anemia due to vitamin B12 deficiency Elevated sed rate High total serum IgM Chronic fatigue and malaise JOSE RAFAEL (obstructive sleep apnea) Expected: 10/23/2022, Expires: 12/23/2022 [facility] Work Phone: Comment on above: Expected: 10/23/2022, Expires: Start: 10-23-2022 End: 12-23-2022 C reactive protein [Mass/volume] in Serum or Plasma C-REACTIVE PROTEIN (CRP) Lab Routine Megaloblastic anemia due to vitamin B12 deficiency Elevated sed rate High total serum IgM Chronic fatigue and malaise JOSE RAFAEL (obstructive sleep apnea) Expected: 10/23/2022, Expires: 12/23/2022 [facility] Work Phone: Comment on above: Expected: 10/23/2022, Expires: Start: 10-23-2022 End: 12-23-2022 CBC W Auto Differential panel - Blood CBC + DIFF Lab Routine Megaloblastic anemia due to vitamin B12 deficiency Elevated sed rate High total serum IgM Chronic fatigue and malaise JOSE RAFAEL (obstructive sleep apnea) Expected: 10/23/2022, Expires: 12/23/2022 [facility] Work Phone: Comment on above: Expected: 10/23/2022, Expires: Start: 10-23-2022 End: 12-23-2022 Cobalamin (Vitamin B12) [Mass/volume] in Serum or Plasma VITAMIN B12 BLOOD Lab Routine Megaloblastic anemia due to vitamin B12 deficiency Elevated sed rate High total serum IgM Chronic fatigue and malaise JOSE RAFAEL (obstructive sleep apnea) Expected: 10/23/2022, Expires: 12/23/2022 [facility] Work Phone: Comment on above: Expected: 10/23/2022, Expires: Start: 10-23-2022 End: 12-23-2022 Comprehensive metabolic 2000 panel - Serum or Plasma COMP METABOLIC PANEL Lab Routine Megaloblastic anemia due to vitamin B12 deficiency Elevated sed rate High total serum IgM Chronic fatigue and malaise JOSE RAFAEL (obstructive sleep apnea) Expected: 10/23/2022, Expires: 12/23/2022 [facility] Work Phone: Comment on above: Expected: 10/23/2022, Expires: Start: 10-23-2022 End: 12-23-2022 Erythrocyte sedimentation rate SED RATE WESTERGREN Lab Routine Megaloblastic anemia due to vitamin B12 deficiency Elevated sed rate High total serum IgM Chronic fatigue and malaise JOSE RAFAEL (obstructive sleep apnea) Expected: 10/23/2022, Expires: 12/23/2022 [facility] Work Phone: Comment on above: Expected: 10/23/2022, Expires: Start: 10-23-2022 End: 12-23-2022 Lactate dehydrogenase [Enzymatic activity/volume] in Serum or Plasma LD LACTATE DEHYDRO Lab Routine Megaloblastic anemia due to vitamin B12 deficiency Elevated sed rate High total serum IgM Chronic fatigue and malaise JOSE RAFAEL (obstructive sleep apnea) Expected: 10/23/2022, Expires: 12/23/2022 [facility] Work Phone: Comment on above: Expected: 10/23/2022, Expires: Start: 10-23-2022 End: 12-23-2022 MONOCLONAL PROTEIN, SERUM (BLOOD) MONOCLONAL PROTEIN, SERUM (BLOOD) Lab Routine Megaloblastic anemia due to vitamin B12 deficiency Elevated sed rate High total serum IgM Chronic fatigue and malaise JOSE RAFAEL (obstructive sleep apnea) Expected: 10/23/2022, Expires: 12/23/2022 [facility] Work Phone: Comment on above: Expected: 10/23/2022, Expires: Start: 10-23-2022 End: 12-23-2022 PROT ELECT SERUM WITH DANA AND INTERP PROT ELECT SERUM WITH DANA AND INTERP Lab Routine Megaloblastic anemia due to vitamin B12 deficiency Elevated sed rate High total serum IgM Chronic fatigue and malaise JOSE RAFAEL (obstructive sleep apnea) Expected: 10/23/2022, Expires: 12/23/2022 [facility] Work Phone: Comment on above: Expected: 10/23/2022, Expires: Start: 09-19-2022 End: 08-20-2023 CBC panel - Blood by Automated count CBC Lab Routine Anemia of chronic disease Expected: 09/19/2022 (Approximate), Expires: 08/20/2023 [facility] Work Phone: Comment on above: Expected: 09/19/2022 (Approximate), Expi res: 08/20/2023 Start: 09-19-2022 End: 08-20-2023 Comprehensive metabolic 2000 panel - Serum or Plasma COMP METABOLIC PANEL Lab Routine Elevated LFTs Expected: 09/19/2022 (Approximate), Expires: 08/20/2023 [facility] Work Phone: Comment on above: Expected: 09/19/2022 (Approximate), Expi res: 08/20/2023 Start: 09-19-2022 End: 11-19-2022 TPMT PHENOTYPE/ENZYME ACTIVITY TPMT PHENOTYPE/ENZYME ACTIVITY Lab Routine Encounter for detention 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 Expected: 09/19/2022 (Approximate), Expires: 11/19/2022 [facility] Work Phone: Comment on above: Expected: 09/19/2022 (Approximate), Expi res: 11/19/2022 Start: 08-28-2022 End: 10-28-2022 25-hydroxyvitamin D3 [Mass/volume] in Serum or Plasma VITAMIN D 25 HYDROXY Lab Routine Megaloblastic anemia due to vitamin B12 deficiency Elevated sed rate High total serum IgM Chronic fatigue and malaise Expected: 08/28/2022 (Approximate), Expires: 10/28/2022 [facility] Work Phone: Comment on above: Expected: 08/28/2022 (Approximate), Expi res: 10/28/2022 Start: 08-28-2022 End: 07-26-2023 [id number] [Mass/volume] in Serum or Plasma B2 MICROGLOBULIN B Lab Routine Megaloblastic anemia due to vitamin B12 deficiency Elevated sed rate High total serum IgM Chronic fatigue and malaise Expected: 08/28/2022 (Approximate), Expires: 07/26/2023 [facility] Work Phone: Comment on above: Expected: 08/28/2022 (Approximate), Expi res: 07/26/2023 Start: 08-28-2022 End: 10-28-2022 C reactive protein [Mass/volume] in Serum or Plasma C-REACTIVE PROTEIN (CRP) Lab Routine Megaloblastic anemia due to vitamin B12 deficiency Elevated sed rate High total serum IgM Chronic fatigue and malaise Expected: 08/28/2022 (Approximate), Expires: 10/28/2022 [facility] Work Phone: Comment on above: Expected: 08/28/2022 (Approximate), Expi res: 10/28/2022 Start: 08-28-2022 End: 07-26-2023 Calcium.ionized [Moles/volume] in Blood CALCIUM IONIZED BLOOD Lab Routine Megaloblastic anemia due to vitamin B12 deficiency Elevated sed rate High total serum IgM Chronic fatigue and malaise Expected: 08/28/2022 (Approximate), Expires: 07/26/2023 [facility] Work Phone: Comment on above: Expected: 08/28/2022 (Approximate), Expi res: 07/26/2023 Start: 08-28-2022 End: 07-26-2023 CBC W Auto Differential panel - Blood CBC + DIFF Lab Routine Megaloblastic anemia due to vitamin B12 deficiency Elevated sed rate High total serum IgM Chronic fatigue and malaise Expected: 08/28/2022 (Approximate), Expires: 07/26/2023 [facility] Work Phone: Comment on above: Expected: 08/28/2022 (Approximate), Expi res: 07/26/2023 Start: 08-28-2022 End: 10-28-2022 Cobalamin (Vitamin B12) [Mass/volume] in Serum or Plasma VITAMIN B12 BLOOD Lab Routine Megaloblastic anemia due to vitamin B12 deficiency Elevated sed rate High total serum IgM Chronic fatigue and malaise Expected: 08/28/2022 (Approximate), Expires: 10/28/2022 [facility] Work Phone: Comment on above: Expected: 08/28/2022 (Approximate), Expi res: 10/28/2022 Start: 08-28-2022 End: 07-26-2023 Comprehensive metabolic 2000 panel - Serum or Plasma COMP METABOLIC PANEL Lab Routine Megaloblastic anemia due to vitamin B12 deficiency Elevated sed rate High total serum IgM Chronic fatigue and malaise Expected: 08/28/2022 (Approximate), Expires: 07/26/2023 [facility] Work Phone: Comment on above: Expected: 08/28/2022 (Approximate), Expi res: 07/26/2023 Start: 08-28-2022 End: 10-28-2022 Erythrocyte sedimentation rate SED RATE WESTERGREN Lab Routine Megaloblastic anemia due to vitamin B12 deficiency Elevated sed rate High total serum IgM Chronic fatigue and malaise Expected: 08/28/2022 (Approximate), Expires: 10/28/2022 [facility] Work Phone: Comment on above: Expected: 08/28/2022 (Approximate), Expi res: 10/28/2022 Start: 08-28-2022 End: 10-28-2022 KAPPA/FARMER,FREE,SER KAPPA/FARMER,FREE,SER Lab Routine Megaloblastic anemia due to vitamin B12 deficiency Elevated sed rate High total serum IgM Chronic fatigue and malaise Expected: 08/28/2022 (Approximate), Expires: 10/28/2022 [facility] Work Phone: Comment on above: Expected: 08/28/2022 (Approximate), Expi res: 10/28/2022 Start: 08-28-2022 End: 07-26-2023 Lactate dehydrogenase [Enzymatic activity/volume] in Serum or Plasma LD LACTATE DEHYDRO Lab Routine Megaloblastic anemia due to vitamin B12 deficiency Elevated sed rate High total serum IgM Chronic fatigue and malaise Expected: 08/28/2022 (Approximate), Expires: 07/26/2023 [facility] Work Phone: Comment on above: Expected: 08/28/2022 (Approximate), Expi res: 07/26/2023 Start: 08-28-2022 End: 07-26-2023 MONOCLONAL PROTEIN, SERUM (BLOOD) MONOCLONAL PROTEIN, SERUM (BLOOD) Lab Routine Megaloblastic anemia due to vitamin B12 deficiency Elevated sed rate High total serum IgM Chronic fatigue and malaise Expected: 08/28/2022 (Approximate), Expires: 07/26/2023 [facility] Work Phone: Comment on above: Expected: 08/28/2022 (Approximate), Expi res: 07/26/2023 Start: 08-28-2022 End: 07-26-2023 Phosphate [Mass/volume] in Serum or Plasma PHOSPHORUS INORGANIC Lab Routine Megaloblastic anemia due to vitamin B12 deficiency Elevated sed rate High total serum IgM Chronic fatigue and malaise Expected: 08/28/2022 (Approximate), Expires: 07/26/2023 [facility] Work Phone: Comment on above: Expected: 08/28/2022 (Approximate), Expi res: 07/26/2023 Start: 08-28-2022 End: 07-26-2023 PROTEIN ELECTROPHORESIS SERUM W/INTERP PROTEIN ELECTROPHORESIS SERUM W/INTERP Lab Routine Megaloblastic anemia due to vitamin B12 deficiency Elevated sed rate High total serum IgM Chronic fatigue and malaise Expected: 08/28/2022 (Approximate), Expires: 07/26/2023 [facility] Work Phone: Comment on above: Expected: 08/28/2022 (Approximate), Expi res: 07/26/2023 Start: 08-28-2022 End: 07-26-2023 Urate [Mass/volume] in Serum or Plasma URIC ACID BLOOD Lab Routine Megaloblastic anemia due to vitamin B12 deficiency Elevated sed rate High total serum IgM Chronic fatigue and malaise Expected: 08/28/2022 (Approximate), Expires: 07/26/2023 [facility] Work Phone: Comment on above: Expected: 08/28/2022 (Approximate), Expi res: 07/26/2023 Start: 07-15-2022 End: 05-20-2023 [id number] [Mass/volume] in Serum or Plasma B2 MICROGLOBULIN B Lab Routine High total serum IgM Expected: 07/15/2022 (Approximate), Expires: 05/20/2023 [facility] Work Phone: Comment on above: Expected: 07/15/2022 (Approximate), Expi res: 05/20/2023 Start: 07-15-2022 End: 05-20-2023 Calcium.ionized [Moles/volume] in Blood CALCIUM IONIZED BLOOD Lab Routine High total serum IgM Expected: 07/15/2022 (Approximate), Expires: 05/20/2023 [facility] Work Phone: Comment on above: Expected: 07/15/2022 (Approximate), Expi res: 05/20/2023 Start: 07-15-2022 End: 05-20-2023 CBC W Auto Differential panel - Blood CBC + DIFF Lab Routine High total serum IgM Expected: 07/15/2022 (Approximate), Expires: 05/20/2023 [facility] Work Phone: Comment on above: Expected: 07/15/2022 (Approximate), Expi res: 05/20/2023 Start: 07-15-2022 End: 05-20-2023 Comprehensive metabolic 2000 panel - Serum or Plasma COMP METABOLIC PANEL Lab Routine High total serum IgM Expected: 07/15/2022 (Approximate), Expires: 05/20/2023 [facility] Work Phone: Comment on above: Expected: 07/15/2022 (Approximate), Expi res: 05/20/2023 Start: 07-15-2022 End: 09-14-2022 KAPPA/FARMER,FREE,SER KAPPA/FARMER,FREE,SER Lab Routine High total serum IgM Expected: 07/15/2022 (Approximate), Expires: 09/14/2022 [facility] Work Phone: Comment on above: Expected: 07/15/2022 (Approximate), Expi res: 09/14/2022 Start: 07-15-2022 End: 05-20-2023 Lactate dehydrogenase [Enzymatic activity/volume] in Serum or Plasma LD LACTATE DEHYDRO Lab Routine High total serum IgM Expected: 07/15/2022 (Approximate), Expires: 05/20/2023 [facility] Work Phone: Comment on above: Expected: 07/15/2022 (Approximate), Expi res: 05/20/2023 Start: 07-15-2022 End: 05-20-2023 MONOCLONAL PROTEIN, SERUM (BLOOD) MONOCLONAL PROTEIN, SERUM (BLOOD) Lab Routine High total serum IgM Expected: 07/15/2022 (Approximate), Expires: 05/20/2023 [facility] Work Phone: Comment on above: Expected: 07/15/2022 (Approximate), Expi res: 05/20/2023 Start: 07-15-2022 End: 05-20-2023 Phosphate [Mass/volume] in Serum or Plasma PHOSPHORUS INORGANIC Lab Routine High total serum IgM Expected: 07/15/2022 (Approximate), Expires: 05/20/2023 [facility] Work Phone: Comment on above: Expected: 07/15/2022 (Approximate), Expi res: 05/20/2023 Start: 07-15-2022 End: 05-20-2023 PROTEIN ELECTROPHORESIS SERUM W/INTERP PROTEIN ELECTROPHORESIS SERUM W/INTERP Lab Routine High total serum IgM Expected: 07/15/2022 (Approximate), Expires: 05/20/2023 [facility] Work Phone: Comment on above: Expected: 07/15/2022 (Approximate), Expi res: 05/20/2023 Start: 07-15-2022 End: 05-20-2023 Urate [Mass/volume] in Serum or Plasma URIC ACID BLOOD Lab Routine High total serum IgM Expected: 07/15/2022 (Approximate), Expires: 05/20/2023 [facility] Work Phone: Comment on above: Expected: 07/15/2022 (Approximate), Expi res: 05/20/2023 Start: 06-05-2022 End: 03-05-2023 25-hydroxyvitamin D3 [Mass/volume] in Serum or Plasma VITAMIN D 25 HYDROXY Lab Routine Vitamin D deficiency Expected: 06/05/2022 (Approximate), Expires: 03/05/2023 [facility] Work Phone: Comment on above: Expected: 06/05/2022 (Approximate), Expi res: 03/05/2023 Start: 06-05-2022 End: 03-05-2023 C reactive protein [Mass/volume] in Serum or Plasma C-REACTIVE PROTEIN (CRP) Lab Routine Elevated sed rate Elevated C-reactive protein (CRP) Expected: 06/05/2022 (Approximate), Expires: 03/05/2023 [facility] Work Phone: Comment on above: Expected: 06/05/2022 (Approximate), Expi res: 03/05/2023 Start: 06-05-2022 End: 03-05-2023 Cobalamin (Vitamin B12) [Mass/volume] in Serum or Plasma VITAMIN B12 BLOOD Lab Routine Vitamin B12 deficiency Expected: 06/05/2022 (Approximate), Expires: 03/05/2023 [facility] Work Phone: Comment on above: Expected: 06/05/2022 (Approximate), Expi res: 03/05/2023 Start: 06-05-2022 End: 03-05-2023 Erythrocyte sedimentation rate SED RATE WESTERGREN Lab Routine Elevated sed rate Elevated C-reactive protein (CRP) Expected: 06/05/2022 (Approximate), Expires: 03/05/2023 [facility] Work Phone: Comment on above: Expected: 06/05/2022 (Approximate), Expi res: 03/05/2023 Start: 05-06-2022 End: 03-18-2023 [id number] [Mass/volume] in Serum or Plasma B2 MICROGLOBULIN B Lab Routine Megaloblastic anemia due to vitamin B12 deficiency High total serum IgM Expected: 05/06/2022 (Approximate), Expires: 03/18/2023 [facility] Work Phone: Comment on above: Expected: 05/06/2022 (Approximate), Expi res: 03/18/2023 Start: 05-06-2022 End: 03-18-2023 Calcium.ionized [Moles/volume] in Blood CALCIUM IONIZED BLOOD Lab Routine Megaloblastic anemia due to vitamin B12 deficiency High total serum IgM Expected: 05/06/2022 (Approximate), Expires: 03/18/2023 [facility] Work Phone: Comment on above: Expected: 05/06/2022 (Approximate), Expi res: 03/18/2023 Start: 05-06-2022 End: 03-18-2023 CBC W Auto Differential panel - Blood CBC + DIFF Lab Routine Megaloblastic anemia due to vitamin B12 deficiency High total serum IgM Expected: 05/06/2022 (Approximate), Expires: 03/18/2023 [facility] Work Phone: Comment on above: Expected: 05/06/2022 (Approximate), Expi res: 03/18/2023 Start: 05-06-2022 End: 03-18-2023 Comprehensive metabolic 2000 panel - Serum or Plasma COMP METABOLIC PANEL Lab Routine Megaloblastic anemia due to vitamin B12 deficiency High total serum IgM Expected: 05/06/2022 (Approximate), Expires: 03/18/2023 [facility] Work Phone: Comment on above: Expected: 05/06/2022 (Approximate), Expi res: 03/18/2023 Start: 05-06-2022 End: 03-18-2023 Ferritin [Mass/volume] in Serum or Plasma FERRITIN BLD Lab Routine Megaloblastic anemia due to vitamin B12 deficiency High total serum IgM Expected: 05/06/2022 (Approximate), Expires: 03/18/2023 [facility] Work Phone: Comment on above: Expected: 05/06/2022 (Approximate), Expi res: 03/18/2023 Start: 05-06-2022 End: 03-18-2023 Iron and Iron binding capacity panel - Serum or Plasma IRON + TIBC Lab Routine Megaloblastic anemia due to vitamin B12 deficiency High total serum IgM Expected: 05/06/2022 (Approximate), Expires: 03/18/2023 [facility] Work Phone: Comment on above: Expected: 05/06/2022 (Approximate), Expi res: 03/18/2023 Start: 05-06-2022 End: 03-18-2023 Lactate dehydrogenase [Enzymatic activity/volume] in Serum or Plasma LD LACTATE DEHYDRO Lab Routine Megaloblastic anemia due to vitamin B12 deficiency High total serum IgM Expected: 05/06/2022 (Approximate), Expires: 03/18/2023 [facility] Work Phone: Comment on above: Expected: 05/06/2022 (Approximate), Expi res: 03/18/2023 Start: 05-06-2022 End: 03-18-2023 MONOCLONAL PROTEIN, SERUM (BLOOD) MONOCLONAL PROTEIN, SERUM (BLOOD) Lab Routine Megaloblastic anemia due to vitamin B12 deficiency High total serum IgM Expected: 05/06/2022 (Approximate), Expires: 03/18/2023 [facility] Work Phone: Comment on above: Expected: 05/06/2022 (Approximate), Expi res: 03/18/2023 Start: 05-06-2022 End: 03-18-2023 Phosphate [Mass/volume] in Serum or Plasma PHOSPHORUS INORGANIC Lab Routine Megaloblastic anemia due to vitamin B12 deficiency High total serum IgM Expected: 05/06/2022 (Approximate), Expires: 03/18/2023 [facility] Work Phone: Comment on above: Expected: 05/06/2022 (Approximate), Expi res: 03/18/2023 Start: 05-06-2022 End: 03-18-2023 PROTEIN ELECTROPHORESIS SERUM W/INTERP PROTEIN ELECTROPHORESIS SERUM W/INTERP Lab Routine Megaloblastic anemia due to vitamin B12 deficiency High total serum IgM Expected: 05/06/2022 (Approximate), Expires: 03/18/2023 [facility] Work Phone: Comment on above: Expected: 05/06/2022 (Approximate), Expi res: 03/18/2023 Start: 05-06-2022 End: 03-18-2023 Urate [Mass/volume] in Serum or Plasma URIC ACID BLOOD Lab Routine Megaloblastic anemia due to vitamin B12 deficiency High total serum IgM Expected: 05/06/2022 (Approximate), Expires: 03/18/2023 [facility] Work Phone: Comment on above: Expected: 05/06/2022 (Approximate), Expi res: 03/18/2023 Start: 04-05-2022 COVID-19 VACCINE (5 - Pfizer risk series) COVID-19 VACCINE (5 - Pfizer risk series) [facility] Start: 03-09-2022 End: 05-09-2022 Hemoglobin A1c in Blood HGB A1C Lab Routine Elevated glucose Expected: 03/09/2022, Expires: 05/09/2022 [facility] Work Phone: Comment on above: Expected: 03/09/2022, Expires: 2 Start: 02-24-2022 End: 04-26-2022 BARTONELLA AB PANEL BARTONELLA AB PANEL Lab Routine Swelling of lymph nodes Expected: 02/24/2022, Expires: 04/26/2022 [facility] Work Phone: Comment on above: Expected: 02/24/2022, Expires: 2 Start: 02-24-2022 End: 04-26-2022 BRUCELLA AB TOTAL BRUCELLA AB TOTAL Lab Routine Swelling of lymph nodes Expected: 02/24/2022, Expires: 04/26/2022 [facility] Work Phone: Comment on above: Expected: 02/24/2022, Expires: 2 Start: 02-24-2022 End: 04-26-2022 Cryptococcus sp Ag [Presence] in Unspecified specimen by Latex agglutination CRYPTOCOCCUS AG DET Microbiology Routine Swelling of lymph nodes Expected: 02/24/2022, Expires: 04/26/2022 [facility] Work Phone: Comment on above: Expected: 02/24/2022, Expires: 2 Start: 02-24-2022 End: 04-26-2022 HISTOPLASMA AG URINE HISTOPLASMA AG URINE Lab Routine Swelling of lymph nodes Expected: 02/24/2022, Expires: 04/26/2022 [facility] Work Phone: Comment on above: Expected: 02/24/2022, Expires: 2 Start: 02-24-2022 End: 04-26-2022 HIV 1 RNA [#/volume] (viral load) in Serum or Plasma by YESSI with probe detection HIV RNA VIRAL LOAD Lab Routine Swelling of lymph nodes Expected: 02/24/2022, Expires: 04/26/2022 [facility] Work Phone: Comment on above: Expected: 02/24/2022, Expires: 2 Start: 02-24-2022 End: 04-26-2022 SYPHILIS TOTAL W/REFLEX SYPHILIS TOTAL W/REFLEX Lab Routine Swelling of lymph nodes Expected: 02/24/2022, Expires: 04/26/2022 [facility] Work Phone: Comment on above: Expected: 02/24/2022, Expires: 2 Start: 01-22-2022 Influenza vaccination [facility] Start: 08-24-2021 COVID-19 VACCINE (4 - Booster for Pfizer series) COVID-19 VACCINE (4 - Booster for Pfizer series) [facility] Start: 01-22-2021 Influenza vaccination Flu vaccine (Season Ended) [employer] Work Phone: Start: 2020 Lipid panel Lipid screen [employer] Phone: Start: 2020 Mammography [facility] Start: 2020 Screening for malignant neoplasm of breast [facility] Start: 2010 HPV TESTING HPV TESTING [facility] Start: 2010 Screening for malignant neoplasm of cervix [facility] Start: 2002 DTaP/Tdap/Td Vaccines (1 - Tdap) DTaP/Tdap/Td Vaccines (1 - Tdap) [facility] Start: 2001 PAP TESTING PAP TESTING [facility] Start: 2001 Screening for malignant neoplasm of cervix [facility] Start: 10-05-1999 DTaP,Tdap and Td Vaccines (1 - Tdap) DTaP,Tdap and Td Vaccines (1 - Tdap) [facility] Start: 10-05-1999 DTaP/Tdap/Td vaccine (1 - Tdap) DTaP/Tdap/Td vaccine (1 - Tdap) [employer] Phone: Start: 10-05-1999 Hepatitis B Vaccine (1 of 3 - 19+ 3-dose series) Hepatitis B Vaccine (1 of 3 - 19+ 3-dose series) [facility] Start: 10-05-1999 Hepatitis B Vaccines (1 of 3 - 19+ 3-dose series) Hepatitis B Vaccines (1 of 3 - 19+ 3-dose series) [facility] Start: 10-05-1999 Pneumococcal vaccination Pneumococcal Vaccine (1 of 2 - PCV) [facility] Start: 10-05-1999 Pneumococcal Vaccine: Pediatrics and At-Risk Adult Patients (1 of 2 - PCV) Pneumococcal Vaccine: Pediatrics and At-Risk Adult Patients (1 of 2 - PCV) [facility] Start: 10-05-1999 SHINGRIX VACCINE (1 of 2) [facility] Start: 10-05-1999 Urine microalbumin profile [facility] Start: 10-05-1999 Zoster Vaccines (1 of 2) Zoster Vaccines (1 of 2) [facility] Start: 1998 Adult BMI Follow Up Plan Adult BMI Follow Up Plan [facility] Start: 1998 Adult BMI Screening Adult BMI Screening [facility] Start: 1998 Anxiety Screening Anxiety Screening [facility] Start: 1998 Hepatitis C screening Hepatitis C Screening [facility] Start: 1998 HIV SCREENING HIV SCREENING [facility] Start: 1998 HIV screening HIV Screening [facility] Start: 10-05-1995 HIV screening HIV screen [employer] Phone: Start: 1993 Varicella vaccination Varicella Vaccines (1 of 2 - 13+ 2-dose series) [facility] Start: 1992 COVID-19 Vaccine (1) COVID-19 Vaccine (1) [facility] [facility] Phone: Start: 1992 Depression Screening Depression Screening [facility] Start: 1992 Tobacco Screening Tobacco Screening [facility] Start: 10-05-1991 Screening for malignant neoplasm of cervix Cervical Cancer Screening [facility] Start: 1986 PNEUMOCOCCAL (1 - PCV) PNEUMOCOCCAL (1 - PCV) [facility] Start: 1986 Pneumococcal vaccination [facility] Start: 1986 Pneumococcal Vaccine: Pediatrics (0 to 5 Years) and At-Risk Patients (6 to 64 Years) (1 - PCV) Pneumococcal Vaccine: Pediatrics (0 to 5 Years) and At-Risk Patients (6 to 64 Years) (1 - PCV) [facility] Start: 1981 MMR Vaccines (1 of 1 - Standard series) MMR Vaccines (1 of 1 - Standard series) [facility] Start: 1981 Varicella vaccination Varicella Vaccines (1 of 2 - 2-dose childhood series) [facility] Start: 1981 Varicella vaccine (1 of 2 - 2-dose childhood series) Varicella vaccine (1 of 2 - 2-dose childhood series) [facility] Start: 1980 HEPATITIS B (1 of 3 - 3-dose series) HEPATITIS B (1 of 3 - 3-dose series) [facility] Start: 1980 Hepatitis B Vaccine (1 of 3 - 3-dose series) Hepatitis B Vaccine (1 of 3 - 3-dose series) [facility] Start: 1980 Hepatitis B Vaccines (1 of 3 - 3-dose series) Hepatitis B Vaccines (1 of 3 - 3-dose series) [facility] Start: 1980 Hepatitis C screening [facility]atitis [facility] screen [facility] Start: 1980 HIV screening HIV Screening [facility] Start: 1980 HPV Vaccine: Recommended Based On Risk HPV Vaccine: Recommended Based On Risk [facility] Start: 1980 Lip[address] Lipid Panel [facility] Start: 1980 Screening for osteoporosis Bone Density Scan [facility] Start: 1980 Tobacco Counseling Tobacco Counseling [facility] Start: 1980 Yearly Adult Physical Yearly Adult Physical [facility] Cardiovascular funct ion eval w/tilt table w/mntr TILT TABLE EVALUATION Cardiology Routine POTS (postural orthostatic tachycardia syndrome) Ordered: 03/09/2022 [facility] Work Phone: Comment on above: Ordered: 03/09/2022 CBC W Auto Different ial panel - Blood CBC and differential Lab Routine Menorrhagia with regular cycle Ordered: 03/23/2024 [facility] Work Phone: Comment on above: Ordered: 03/23/2024 CT Abdomen W contrast IV [facility] End: 03-05-2024 DXA-AXIAL SKELETON DXA-AXIAL SKELETON Radiology Routine Steroid-induced osteoporosis 1 Occurrences starting 02/04/2023 until 03/05/2024 [facility] Work Phone: Comment on above: 1 Occurrences starting 02/04/2023 until 03/05/2024 End: 03-05-2024 DXA-FOREARM SKELETON DXA-FOREARM SKELETON Radiology Routine Steroid-induced osteoporosis 1 Occurrences starting 02/04/2023 until 03/05/2024 [facility] Work Phone: Comment on above: 1 Occurrences starting 02/04/2023 until 03/05/2024 ECG 12 Lead ECG 12 Lead ECG Routine Irregular heart rate 06/09/2023 8:[address] [facility] Work Phone: hCG, quantitative, hCG, quantitative, Lab Routine Menorrhagia with regular cycle Ordered: 03/23/2024 [facility] Comment on above: Ordered: 03/23/2024 Hemoglobin A1c/Hemoglobin.total in Blood Hemoglobin A1c Lab Routine Menorrhagia with regular cycle Ordered: 03/23/2024 [facility] [employer] Comment on above: Ordered: 03/23/2024 End: 03-09-2023 HOME SLEEP APNEA TEST (HSAT) HOME SLEEP APNEA TEST (HSAT) Procedures Routine Somnolence, daytime Snoring 1 Occurrences starting 03/09/2022 until 03/09/2023 [facility] Work Phone: Comment on above: 1 Occurrences starting 03/09/2022 until 03/09/2023 HYDROGEN BREATH TEST B/O HYDROGE N BREATH TEST B/O Procedures Routine Diarrhea, unspecified type Abdominal pressure Ordered: 06/14/2024 [facility] Work Phone: Comment on above: Ordered: 06/14/2024 Oxygen therapy [[facility]ini [facility] Data Set] Initiate Oxygen Therapy Protocol Respiratory Care Routine Daily until discontinued starting 10/07/2020 [facility] Work Phone: Comment on above: Daily until discontinued starting 2020 Patient Education Know your Meds Jorge Luis Non Diagnostic Block [facility] Work Phone: Patient referral [facility] Work Phone: End: 03-04-2023 Polysomnogram POLYSOMNOGRAM (PSG) Procedures Routine Somnolence, daytime Snoring 1 Occurrences starting 03/04/2022 until 03/04/2023 [facility] Work Phone: Comment on above: 1 Occurrences starting 03/04/2022 until 03/04/2023 Prothrombin time (PT ) in Blood by Coagulation assay Protime-INR Lab Routine Menorrhagia with regular cycle Ordered: 03/23/2024 [facility] Comment on above: Ordered: 03/23/2024 THIN PREP TIS PAP AN D HR HPV DNA THIN PREP TIS PAP AND HR HPV DNA Pathology and Cytology Routine Well woman exam with routine gynecological exam Ordered: 06/06/2024 [facility] Comment on above: Ordered: 06/06/2024 Thyrotropin [Units/v olume] in Serum or Plasma TSH Lab Routine Menorrhagia with regular cycle Ordered: 03/23/2024 [facility] Comment on above: Ordered: 03/23/2024 Thyroxine (T4) free [Mass/volume] in Serum or Plasma T4, free Lab Routine Menorrhagia with regular cycle Ordered: 03/23/2024 [facility] Comment on above: Ordered: 03/23/2024 [facility] Immunizations Immunization Date Immunization Notes Care Provider Reginaldo mcginnis 02-23-2023 COVID-19 vaccine, ag e 12+ yr, season (InterResolve) Lynne Ni MD Work Phone: [facility] 02-08-2022 COVID-19 mRNA Bivale nt Booster (Pfizer) Gay Enciso QUALITY CLOTH TESTER-C Work Phone: [facility] 05-26-2021 COVID-19 mRNA, Comirnaty (Pfizer) Gay Enciso QUALITY CLOTH TESTER-C Work Phone: [facility] 10-19-2020 COVID-19 mRNA, Comirnaty (Pfizer) Gay Enciso QUALITY CLOTH TESTER-C Work Phone: [facility] 09-28-2020 COVID-19 mRNA, Comirnaty (Pfizer) Gay Enciso QUALITY CLOTH TESTER-C Work Phone: [facility] Payers Date Payer Category Payer Medicaid HMO [employer] [id number] 2024 Self-pay [id number] 2017 Medicaid (Managed Care) [employer] [id number] 2017 Private Health Insurance [facility] [id number] 2017 Unknown [employer] OUR [id number] 2017-Present [address] [place] [address] [id number] 2009 Medicaid [employer] [id number] 2009-Present [phone] [address] [place] [address] Medicaid [id number] 2009 Medicaid [id number]. [id number] 1980 Unknown [id number] 2.16.840.1.268746.3.579.2. 185 1980 Unknown [id number] 2.16.840.1.650402.3.579.2. 175 1980 Unknown [id number] 2.16.840.1.906728.3.579.2. 593 1980 Unknown [id number] 2.16.840.1.539136.3.579.2. 593 1980 Unknown [id number] 2.16.840.1.662275.3.579.2. 59 1980 Unknown [id number] 2.16.840.1.748146.3.579.2. 59 1980 Unknown [id number] 2.16.840.1.216820.3.579.2. 1980 Unknown [id number] 2.16.840.1.305469.3.579.2. 1980 Unknown [id number] 2.16.840.1.221957.3.579.2. 1980 Unknown [id number] 2.16.840.1.785817.3.579.2. 1980 Unknown [id number] 2.16.840.1.374957.3.579.2 1980 Unknown [id number] 2.840.1.275590.3.579.2. 1980 Unknown [id number] 2.16.840.1.608875.3.579.2. 1243 1980 Unknown [id number] 2.840.1.280813.3.579.2. 1243 1980 Unknown [id number] 2.16.840.1.655326.3.579.2. 1258 1980 Unknown [id number] 2.16.840.1.263093.3.579.2. 1258 1980 Unknown [id number] 2.16.840.1.890390.3.579.2. 1258 1980 Unknown [id number] 2.16.840.1.026791.3.579.2. 1258 1980 Unknown [id number] 2.16.840.1.735907.3.579.2. 1258 1980 Unknown [id number] 2.16.840.1.596561.3.579.2. 1258 1980 Unknown [id number] 2.16.840.1.128466.3.579.2. 1258 1980 Unknown [id number] 2.16.840.1.593929.3.579.2. 1258 1980 Unknown [id number] 2.16.840.1.892873.3.579.2. 1258 1980 Unknown [id number] 2.16.840.1.982337.3.579.2. 1258 1980 Unknown [id number] 2.16.840.1.621263.3.579.2. 1258 1980 Unknown [id number] 2.16.840.1.923390.3.579.2. 1258 1980 Unknown [id number] 2.16.840.1.594969.3.579.2. 1258 1980 Unknown [id number] 2.16.840.1.758097.3.579.2. 1258 1980 Unknown [id number] 2.16.840.1.281785.3.579.2. 1259 1959 Unknown [id number] 1959 Unknown [id number] Unknown [id number] 2.16.840.1.902121.3.579.2. 531 Unknown [id number] 2.16.840.1.529679.3.579.2. 531 Social History Date Type Detail Facility Start: 10-07-2020 End: 03-09-2022 Tobacco smoking status [facility] Current every day smoker [facility] Start: 10-07-2020 End: 03-09-2022 Tobacco use and exposure Never used [facility] Start: 10-07-2020 End: 09-04-2024 Alcohol intake Lifetime non-drinker (finding) [facility] Phone: Start: 10-07-2020 History SDOH Alcohol Frequency 1 [facility] Phone: Start: 1980 Sex Assigned At Not on file M [facility] Phone: Start: 02-22-2022 End: 07-26-2024 Exposure to SARS-CoV-2 (event) Not sure [facility] Start: 05-24-1995 History of tobacco use Cigarette Smo ker [facility] Start: 05-31-2014 End: 09-24-2022 Cigarettes smoked current (pack per day) - Reported 1 [facility] Start: 10-24-2021 End: 10-07-2024 Alcohol intake Current non-drinker of alcohol (finding) [facility] Start: 10-14-2021 End: 10-24-2021 Exposure to SARS-CoV-2 (event) Unable to assess [facility] Start: 09-24-2022 End: 10-22-2022 Sex Assigned At [facility] Adult Depression Screening Assessment 1 [facility] Start: 10-19-2022 Tobacco Comment Current smoker , everyday, 11-20 cigarettes/day [facility] Start: 05-31-2023 Alcohol Comment Caffeine intak e : > 4 cups per day [facility] Start: 08-19-2016 End: 12-16-2023 Tobacco smoking status [facility] Smoker (finding) [facility] Start: 1980 Sex Assigned At Female F [facility] Start: 07-02-2016 End: 08-22-2024 Sex Female (finding) [facility] Start: 02-21-2024 Gender identity Identifies as female gender (finding) [facility] Goals Date Patient Goal Desired Activity /State Functional Status Date Assessment Result Facility 12-25-2014 Are you deaf, or do you have serious difficulty hearing No 12/25/2014 11:14 AM Chichi Womack Ma No [facility] 12-25-2014 Are you blind, or do you have serious difficulty seeing, even when wearing glasses No 12/25/2014 11:14 AM Chichi Womack Ma No [facility] 12-25-2014 Do you have serious difficulty walking or climbing stairs Yes 12/25/2014 11:14 AM Chichi Womack Ma Yes [facility] 12-25-2014 Do you have difficul ty dressing or bathing Yes 12/25/2014 11:14 AM Chichi Womack Ma Yes [facility] 12-25-2014 Because of a physica l, mental, or emotional condition, do you have difficulty doing errands alone such as visiting a physician's office or shopping No 12/25/2014 11:14 AM EDT Chichi Zarco Ma [facility] Mental Status Date Assessment Result Facility 12-25-2014 Because of a physica l, mental, or emotional condition, do you have serious difficulty concentrating, remembering, or making decisions No 12/25/2014 11:14 AM EDT ZarcoChichi vela Ma [facility] Clinical Notes 05-31-2014 to 10-07-2024 Lynne Ni MD - 10/07/2024 8:00 AM EDTPatient InstructionsTelephone Encounter - Beatriz Sanchez LPN - 10/06/2024 1:46 PM EDTTelephone Encounter - Beatriz Sanchez LPN - 10/06/2024 1:46 PM EDT Note Date & Type Note Facility 10-07-2024 History of Present illness Narrative THIS IS [...] visit. Either the patient or their legal field support representative has been informed of the risks and benefits of -- and alternatives to -- treatment through a remote evaluation and consents to proceed with the evaluation remotely. It required patient-provider interaction for the medical decision making as documented below. Persons Present: self (in home) Provider: (in office) VIRTUAL VISIT Follow up for:osteoarthritis/low vitamin D/b12/ +CHRISTIAN/high esr/+tumid lupus biopsy Today's visit 10/07/24:labs in 3months. Did fine with last benlysta 10/04/24 and IVIG 10/02/24. No dental work planned. Not taking antibiotics. No signs or symptoms of infection. taking tylenol, (off since C.diff/azathioprine 3tabs daily), once a week vitamin D script, plaquenil 2tabs daily, prednisone 10mg daily (increased to 30mg daily), lyrica 75mg only with burning pain, vitamin b12 injection, rarely motrin. 1.5years ago eye exam, no medication toxicity. Less fevers with IV benlysta vs sq injection. Raynauds better with warmer weather, no digital ulcers. Has diarrhea, will get stool checked. Last week family member last week. Yesterday feels everything hurts 10/02/24 high alt 41, glucose 216, esr 28;low vitamin D 30.9;normal rest of cbc, cmp, crp<0.3; 09/07/24 patient requests to switch sq benlysta to IV, start prior authorization 06/30/24 low vitamin D 28.5;high wbc 12.66, esr 28, glucose 116;normal rest of cbc, cmp, crp 0.1; 03/23/24 high wbc 12.89, glucose 152, esr 27, IGM 373;low vitamin D 19.9, IGG 476;normal rest of cbc, cmp, crp 0.3, vitamin b12-607, ferritin 33.3, folate 13;negative blood cultures, quantiferon tb; 50% improvement from IV benlysta. limited exercise due to pain. feet swelling when standing long time at . Chronic current pain in all over, legs and low back. Reports pain 8/10. Has minimal AM stiffness. Feels safe at home. Has enough food, supplies and medications. Overall uncomfortable but happy with rheum care. No falls/fx/trauma/illness/oral sores/rash/hairloss/jaw pain/dysphagia/epistaxis/hemoptysis since last visit. No adverse effects with meds. No other complaints. Patient denies fever, chills, cp, dyspnea, nausea, vomiting, night sweats, scalp tenderness, visual changes, hernandez, bowel/bladder changes, weight changes or other complaints. Last visit supportive care, see ID for recurrent thrush while on prednisone/better with nystatin, check labs, see vascular, see GI, tolerating azathioprine 3tabs daily (hold during infection), improved with benlysta sq injection weekly (hold during infection/wants to switch to IV in future if injections not helpful), start raynauds general measures, may consider osteoporosis treatment if on manager 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 steroids/abnormal bmd, take vitamin D script once [...] neurology/on metoprolol for POTs, avoid aggravating triggers, detention pain recommendations per primary care provider/pain clinic/patient currently declined cymbalta/lyrica, see ortho, prn brace, start fall precautions, 03/18/24:labs due 03/2024. taking tylenol, azathioprine 3tabs [...] measures, may consider osteoporosis treatment if on detention steroids/abnormal bmd, take vitamin D script once [...] neurology/on metoprolol for POTs, avoid aggravating triggers, manager 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 pain recommendations per primary care provider/pain clinic/patient [...] measures, may consider osteoporosis treatment if on manager 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 steroids/abnormal bmd, take vitamin D script if [...] neurology/on metoprolol for POTs, avoid aggravating triggers, detention pain recommendations per primary care provider/pain clinic/patient [...] neurology/on metoprolol for POTs, avoid aggravating triggers, detention pain recommendations per primary care provider/pain clinic/patient [...] Due for eye exam. Labs sent to [facility]/completed in 06/2021 (no results faxed to office, [...] pain: yes H/o precedent/frequent infection(s): as above Enthesopathy/Carson's/heel/plantar tenderness: hands random painful/tingling Skin thickening, psoriasis, [...] COVID-19 original vaccine, age 12+ yr, monovalent (InterResolve - PURPLE TOP) 09/28/2020 10/19/2020 05/26/2021 COVID-19 vaccine, age 12+ yr (InterResolve COMIRNATY) 02/23/2023 COVID-19 vaccine, age 12+ yr, bivalent (InterResolve) 02/08/2022 Pneumovax no Flu shot no Tetanus [...] etoh no No gout MEDICATIONS: reviewed medlist 10/07/24 Calcium no Vitamin D script CURRENT ALLERGIES: Allergies As of Date: 10/07/2024 Allergen Noted Reaction BACTRIM [SULFAMETHOXAZOLE] 05/31/2014 Other: See Comments CODEINE 05/31/2014 Other: See Comments CLINDAMYCIN 03/04/2022 Unknown DOXYCYCLINE 01/19/2022 Other: See Comments LATEX 05/31/2014 Rash SULFAMETHOXAZOLE-TRIMETHOPRIM 03/04/2022 Swelling TRIMETHOPRIM 01/19/2022 Other: See Comments Fully Assessed 10/02/2024 TESTS:All Diagnostic tests reviewed for today's visit: 10/02/24 high alt 41, glucose 216, esr 28;low vitamin D 30.9;normal rest of cbc, cmp, crp<0.3; 09/07/24 patient requests to switch sq benlysta to IV, start prior authorization 06/30/24 low vitamin D 28.5;high wbc 12.66, esr 28, glucose 116;normal rest of cbc, cmp, crp 0.1; 03/23/24 high wbc 12.89, glucose 152, esr 27, IGM 373;low vitamin D 19.9, IGG 476;normal rest of cbc, cmp, crp 0.3, vitamin b12-607, ferritin 33.3, folate 13;negative blood cultures, quantiferon tb; 12/27/23 high glucose 120, esr 31, wbc [...] (33);NL cbc, cmp, negative hla b27; Outside [place] 06/2021 low vitamin D 16, vitamin b12-307;high [...] and phil tests Swoll JTS:no Tend. JTS: all over diffusely, both hands, lumbar area, neck, knees, diffusely UEs, axilla, legs, feet, flank pain, decreased range of motion due to pain; no warmth/erythema No clinical synovitis in the DIP's, PIP's, MCP's, wrists, elbows, shoulders, knees, ankles, midfoot, or toes. no knee effusions bilateral. 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 Haley is a 44 year old female with PMH depression, diffuse [...] ID and ok to watch for now. limited exercise due to pain/POTS. Whole body feels very heavy and stiff. labs in 3months. Did fine with last benlysta 10/04/24 and IVIG 10/02/24. No dental work planned. Not taking antibiotics. No signs or symptoms of infection. taking tylenol, (off since C.diff/azathioprine 3tabs daily), once a week vitamin D script, plaquenil 2tabs daily, prednisone 10mg daily (increased to 30mg daily), lyrica 75mg only with burning pain, vitamin b12 injection, rarely motrin. 1.5years ago eye exam, no medication toxicity. Less fevers with IV benlysta vs sq injection. Raynauds better with warmer weather, no digital ulcers. Has diarrhea, will get stool checked. Last week family member last week. Yesterday feels everything hurts 10/02/24 high alt 41, glucose 216, esr 28;low vitamin D 30.9;normal rest of cbc, cmp, crp<0.3; 09/07/24 patient requests to switch sq benlysta to IV, start prior authorization 06/30/24 low vitamin D 28.5;high wbc 12.66, esr 28, glucose 116;normal rest of cbc, cmp, crp 0.1; 03/23/24 high wbc 12.89, glucose 152, esr 27, IGM 373;low vitamin D 19.9, IGG 476;normal rest of cbc, cmp, crp 0.3, vitamin b12-607, ferritin 33.3, folate 13;negative blood cultures, quantiferon tb; 50% improvement from IV benlysta. limited exercise due to pain. feet swelling when standing long time at . Chronic current pain in all over, legs and low back. Reports pain 8/10. Has minimal AM stiffness. Feels safe at home. Has enough food, supplies and medications. Overall uncomfortable but happy with rheum care. Will complete workup for reported symptoms = supportive care, see ID for recurrent thrush while on prednisone/better with nystatin/NO infection now, check labs in 3months, see vascular, see GI, tolerating azathioprine 3tabs daily (hold during infection), improved with benlysta IV every 4weeks(hold during infection), start raynauds general measures, may consider osteoporosis treatment if on manager 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 steroids/abnormal bmd, take vitamin D script once [...] neurology/on metoprolol for POTs, avoid aggravating triggers, manager 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 pain recommendations per primary care provider/pain clinic/patient currently declined cymbalta/lyrica, see ortho, prn brace, start fall precautions, answered all questions and concerns, patient voiced understanding. 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 reStart azathioprine daily with food. Please hold azathioprine [...] touching your toes, sit-ups, using row machine detention pain recommendations per primary care provider/pain clinic [...] service in addition to 10-15min preparing to talk with the patient, video & audio (virtual) or phone or [id number] patient care, completing clinical documentation, obtaining and/or [...] visit: Review of Systems Rheumatology (Submitted on 10/06/2024) Fever : No Recent unintentional weight change: No Eye pain: No Eye redness: No Vision Disturbance: No Eye Dryness: No Nosebleeds: No Sores in your mouth: Yes Trouble Swallowing: No Dry Mouth: Yes Chest pain: Yes Leg Swelling: No A cough: No Shortness of breath: Yes [...] Changes: No Hair Loss: Yes Nail Changes: Yes Headaches: Yes Numbness: Yes Memory Loss: No Swollen Glands: Yes ISABEL AMBULATORY VISIT INTAKE QUESTIONNAIRE Question 10/06/2024 9:05 PM EDT - Filed by Patient 09/18/2024 9:28 PM EDT - Filed by Patient 09/04/2024 9:09 PM EDT - Filed by Patient Has the Patient Had 2 Falls in the Last Year or 1 Fall with Injury or Currently Using an Ambulatory Assistive Device (Walker, Cane, Wheelchair, Crutches, etc.) No No No Are you having pain associated with your visit today? Yes Yes No What is your Pain Level? 6 6 Pain Location Other: See Comment Other: See Comment Description Aching Aching Sore Bloating Stiffness Sharp Sore Stiffness Tightness Duration Amount of Time Duration Units Days Years Frequency Continuous Continuous Intervention/Comfort measure Medication Medication Reposition Reposition Relaxation Relaxation Cold Cold Heat Heat Imagery Massage Pillow support Positioning Spinal Cord Stimulator Comments [facility] MYCHART ADDITIONAL DEMO Question 10/06/2024 9:06 PM EDT - Filed by Patient Is this visit related to an accident, other than Workers' Compensation? No Is this visit related to Workers' Compensation? No Do you need an science interpreter? No [facility] MYCHART ZOOM MESSAGE Question 10/06/2024 9:06 PM EDT - Filed by Patient Install Zoom [facility] PROMIS CAT V2.0-PHYSICAL FUNCTION-28 DAYS Question 10/06/2024 9:06 PM EDT - Filed by Patient Does your health now limit you in doing two hours of physical labor? Cannot do Are you able to do chores such as vacuuming or yard work? Unable to do Are you able to carry a shopping bag or briefcase? With some difficulty Are you able to run errands and shop? Unable to do PROMIS Physical Function T-Score (range: 10 - 90) 27 (severe dysfunction) Abnormal PROMIS Physical Function Percentile (range: 0 - 100) 1 [facility] PROMIS CAT V1.0 - FATIGUE-28 DAYS Question 10/06/2024 9:07 PM EDT - Filed by Patient How often did you have to push yourself to get things done because of your fatigue? Sometimes I have trouble starting things because I am tired Somewhat How run-down did you feel on average? Somewhat How much were you bothered by your fatigue on average? Somewhat PROMIS Fatigue T-Score (range: 10 - 90) 57 (mild) Abnormal PROMIS Fatigue Percentile (range: 0 - 100) 24 CC PROMIS CAT V1.1-PAIN INTERFERENCE-28 DAYS Question 10/06/2024 9:07 PM EDT - Filed by Patient How much did pain interfere with your day to day activities? Quite a bit How much did pain interfere with your ability to participate in social activities? Quite a bit How much did pain interfere with your enjoyment of social activities? Quite a bit How much did pain interfere with work around the home? Very much PROMIS Pain Interference T-Score (range: 10 - 90) (range: 10 - 90) 68 (moderate) Abnormal PROMIS Pain Interference Percentile (range: 0 - 100) 4 [facility] [place] [facility] QUESTIONNAIRE Question 10/06/2024 9:11 PM EDT - Filed by Patient IN THE PAST 3 MONTHS, have you had a lupus flare? (A lupus flare is when your lupus gets worse). Which of the following responses best describes you? Yes, severe flare Please review the following list of lupus symptoms. IN THE PAST 3 MONTHS, how bad has each of the symptoms been? Lost weight without trying No problem Fatigue Moderate Fevers (greater than 101 F, 38.5 C) taken by a thermometer No problem Sores in mouth or nose Moderate Rash on cheeks (shaped like a butterfly) Mild Other rash No problem Dark blue or purple spots you could feel on your skin No problem Rash or feeling sick after going out in the sun No problem Bald patches on scalp, or clumps of hair on pillow Moderate Swollen glands (nodes) in the neck Mild Shortness of breath Moderate Chest pain with a deep breath No problem Fingers or toes turning white or very pale in the cold (Raynaud's) Moderate Stomach or belly pain Severe Persistent numbness or tingling in your arms or legs Mild Seizures No problem Stroke No problem Forgetfulness No problem Feeling depressed Moderate Unusual headaches Moderate Muscle pain Severe Muscle weakness Moderate Pain or stiffness in joints Severe Swelling in joints Moderate Please rate the disease activity of your lupus DURING THE PAST 3 MONTHS on the scale below, where 0 is no activity and 10 is the most activity. (Select your most active day). 6 SLAQ Score (range: 0 - 47) 22 MYC PROMIS 10 ADULT SHORT FORM V1.0 GLOBAL HEALTH Question 10/06/2024 9:12 PM EDT - Filed by Patient 07/10/2024 8:26 PM EDT - Filed by Patient In the past 7 days In general, would you say your health is: Poor Abnormal Poor Abnormal In general, would you say your quality of life is: Poor Abnormal Fair Abnormal In general, how would you rate your physical health? Poor Abnormal Poor Abnormal In general, how would you rate your mental health, including your mood and your ability to think? Fair Abnormal Good Abnormal In general, how would you rate your satisfaction with your social activities and relationships? Fair Abnormal Fair Abnormal In general, please rate how well you carry out your usual social activities and roles. (This includes activities at home, at work and in your community, and responsibilities as a parent, child, spouse, employee, friend, etc.) Fair Abnormal Fair Abnormal To what extent are you able to carry out your everyday physical activities such as walking, climbing stairs, carrying groceries, or moving a chair? Not at all Abnormal A little Abnormal In the past 7 days In the past 7 days, how often have you been bothered by emotional problems such as feeling anxious, depressed or irritable? Sometimes Abnormal Sometimes Abnormal In the past 7 days, how would you rate your fatigue on average? Moderate Moderate In the past 7 days, how would you rate your pain on average? 5 Abnormal 6 Abnormal PROMIS Adult Short Form-Global Health Score (Physical) (range: 16 - 68) 29.6 (Poor) Abnormal 32.4 (Poor) Abnormal PROMIS Adult Short Form-Global Health Score (Mental) (range: 21 - 68) 33.8 (Fair) Abnormal 38.8 (Fair) Abnormal Myc Promis Gh Physical Score Compared To Last (range: -2 - 3) 3 (WITHIN +/- 5) 3 (WITHIN +/- 5) Myc Promis Gh Mental Score Compared To Last (range: -2 - 3) 3 (WITHIN +/- 5) 3 (WITHIN +/- 5) MYC PROVIDER UNDERSTANDING CURRENT HEALTH RHEUMATOLOGY Question 10/06/2024 9:12 PM EDT - Filed by Patient These questions will help my provider understand my health Strongly Agree documented in this encounter [facility] 10-07-2024 Instructions Lynne Ni MD - 10/07/2024 7:19 AM EDT May apply over the counter [...] (200mg) daily with a meal Please see senior fire protection engineer every 6-12months while on Hydroxychloroquine. azathioprine daily with food. Benlysta injection sq once a week or IV once a month Please hold azathioprine/benlysta if on antibiotics or [...] touching your toes, sit-ups, using row machine detention pain recommendations per primary care provider/pain clinic [...] usual activities immediately. documented in this encounter [facility] 10-06-2024 Telephone encounter Note AGUSTÍN left that below message forwarded to her MC. Requested return call if unable to view message. [facility] 10-06-2024 Miscellaneous Notes VM left that below message forwarded to her MC. Requested return call if unable to view message. Please Call patient if MyChart note not read to review results/released to My Chart if tests completed at [facility]: Mildly glucose, one borderline inflammatory test- care per [...] discuss at follow up visit. Thank you. 10/02/24 high alt 41, glucose 216, esr 28;low vitamin D 30.9;normal rest of cbc, cmp, crp<0.3; 09/07/24 patient requests to switch sq benlysta to IV, start prior authorization 06/30/24 low vitamin D 28.5;high wbc 12.66, [...] Lynne Ni MD documented in this encounter [facility] 10-06-2024 Telephone encounter Note Please Call patient if MyChart note not read to review results/released to My Chart if tests completed at [facility]: Mildly glucose, one borderline inflammatory test- care per [...] discuss at follow up visit. Thank you. 10/02/24 high alt 41, glucose 216, esr 28;low vitamin D 30.9;normal rest of cbc, cmp, crp<0.3; 09/07/24 patient requests to switch sq benlysta to IV, start prior authorization 06/30/24 low vitamin D 28.5;high wbc 12.66, [...] above. Please process accordingly. Lynne Ni MD [facility] 09-20-2024 Note [facility] 09-19-2024 History of Present illness Narrative Patient Name and confirmed at initiation of visit. Dr. Lynne Ni requested a genetic consultation for Ariadna Haley, a 43 year old female, for discussion of her personal history of joint hypermobility in the setting of a family history of aortic dilation. Prior to the visit, the genetic counselor reviewed records in the patient's EMR including, but not limited to, available clinic notes, physician consultations, laboratory tests, imaging reports, cardiac studies, and other investigations and evaluations. The genetic counselor also reviewed the case with Dr. Lance as needed prior to seeing the patient. The patient was accompanied to today's appointment by her daughter, who was also scheduled for Genetics evaluation. HISTORY OF PRESENT CONDITION: Ms. 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 She notes that she is no longer as flexible, but her fingers remain hypermobile. She states that her health has declined since 2019 (prior to that she was generally healthy); she has since been diagnosed with fibromyalgia, B12 deficiency, lupus, and hypogammaglobulinemia. Her son has a history of spontaneous pneumothorax and reportedly has had negative genetic testing for Marfan syndrome (though report is not available for confirmation at the time of this appointment); her daughter has dysautonomia and a dilated ascending aorta. Given her personal and family history, Ariadna was referred to Genetics for further evaluation for possible connective tissue disorder. Ms. Haley was evaluated today by Dr. Lance and additional history is available in her note. PERTINENT PAST MEDICAL AND SURGICAL HISTORY INCLUDES: PAST MEDICAL HISTORY Diagnosis Date Chronic pain syndrome Depression, recurrent Diffuse cystic mastopathy H/O mammogram 11/09/2013 Hypotension, unspecified Low back pain Megaloblastic anemia due to vitamin B12 deficiency 03/04/2022 Mixed hyperlipidemia Obesity, unspecified Pain, hip Physical exam, annual 01/16/14 Pilonidal cyst with abscess Sacroiliitis Sciatica Tobacco use disorder Vitamin B12 deficiency Vitamin D deficiency PAST SURGICAL HISTORY Procedure Laterality Date PAST SURGICAL HISTORY OF 2011 and 2012 pilonidal cyst PAST SURGICAL HISTORY OF D & C PAST SURGICAL HISTORY OF ablation PREVIOUS GENETIC TESTING: None. SOCIAL HISTORY: Lives in [place], [place] with her and daughter. 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 - Partner's ethnicity: not applicable. - No known -Malagasy, Mediterranean, /, Kiswahili-Ghanaian/Cajun, or Ashkenazi Hol[place] ancestry unless noted above. - Parental consanguinity: No A 4 generation pedigree was collected and will be scanned below. Pertinent findings are noted. Children: SAB x 2. 1) daughter, age 25, easy bruising; she has a healthy 4 month old son. 2) son, age 24, h/o spontaneous pneumothorax, reportedly has had negative Marfan syndrome. Poor eyesight, HLD. 3) daughter, age 15, joint hypermobility, dysautonomia, dilated ascending aorta. 4) daughter, age 7, h/o mono, since then has had frequent infections, lymphadenopathy (followed by ID). Full siblings and their children: none. Maternal half siblings and their children: None Paternal half siblings and their children: sister, age 53, no known health problems. She has five children, all seem to be generally healthy. One of her daughters had kidney problems in childhood which required some kind of surgery (details unknown); this daughter had a child who of SIDS. Parental losses: none reported. Mother: 65 years old, 5'5 tall. Crohn's, hypothyroidism. Maternal relatives: non-contributory Father: age 57 due to ?abdominal cancer; h/o pancreatitis, + EtOH. Paternal relatives: multiple relatives with cancer diagnoses prior to age 50. The remainder of Ms. Haley's reported family history is negative for known or suspected genetic disease, defects, developmental delay/intellectual disability, infertility, recurrent loss, and unexplained . GENETIC COUNSELING RISK ASSESSMENT AND DISCUSSION: Ariadna Haley is a 43 year old female who presents for evaluation of connective tissue disorders such as hypermobile Peter Danlos syndrome. Dr. Lance's physical examination will be documented in her note from today's visit. We briefly discussed the etiology of connective tissue disorders, which encompasses a group of conditions that can affect multiple parts of the body, such as the skeletal system (such as joint hypermobility, scoliosis, chest wall defects), skin (such as abnormal scarring, increased extensibility), eyes (such as myopia), and cardiovascular system (such as aortic dilation or aneurysm). There are multiple genetic syndromes that fall into the category of connective tissue disorders. For some of these conditions, such as Marfan syndrome and the vascular type of Peter Danlos syndrome, the genetics of these disorders is well understood and clinical genetic testing is available. For other disorders, such as the hypermobile type of EDS, the genetic cause is not yet known. After this discussion, Ariadna Haley met with Dr. Lance. Please see her note for assessment and plan. Ariadna did not meet clinical diagnostic criteria for hypermobile EDS on physical exam. Dr. Lance did not feel that her physical exam and clinical features were suggestive of a specific underlying connective tissue disorder such as Peter Danlos syndrome, therefore no genetic testing was recommended after today's evaluation. Instead, Dr. Lance recommended genetic testing via the connective tissue disorder panel at [facility] for Ariadna's daughter. Follow up will be determined pending test results. We also discussed Ariadna's family history of cancer in multiple paternal relatives. In general, cancer is thought to be the result of the normal aging process and caused by a combination of genetic and environmental factors. However, certain red flags in a family history can be suggestive of an underlying inherited cancer risk. These red flags can include diagnoses before age 50, multiple individuals within a blood line with cancer diagnoses, or clustering of certain cancers within a family. We discussed the limitations of testing an unaffected individual for an inherited cancer predisposition syndrome, particularly with regard to the interpretation of a negative result. Ariadna was encouraged to discuss her family history with her PCP, who can place a referral to meet with a cancer genetic counselor if Ariadna is interested in learning more about her cancer risk. FOLLOW-UP PLAN: 1. No genetic testing was recommended for Ariadna after today's evaluation. We will await the results of her daughter's genetic testing and determine follow up (if any) based on those results. 2. See Dr. Lance's note for any additional recommendations. EDUCATIONAL INFORMATION SUPPLIED TO PATIENT: none The patient was seen for a total of 28 minutes, greater than 50% of which was spent [id number] counseling. This plan is being carried out per Dr. Lance's recommendations. Deborah Arroyo MS, [facility] [place] Genetic Counselor [facility] CC: Dr. Last Lance CC: Ariadna Haley Via [email or web address] documented in this encounter [facility] 09-19-2024 Note [facility] 09-18-2024 Telephone encounter Note Notify patient medication sent as requested Thank you. Patient's request for medication is as follows: Requested Prescriptions Pending Prescriptions Disp Refills belimumab (BENLYSTA) 200 mg/mL auto-injector 12 mL 3 Sig: Inject 200mg (1 pen) subcutaneously once weekly Prescription(s) as above. Please process accordingly. Lynne Ni MD [facility] 09-18-2024 Miscellaneous Notes Notify patient medication sent as requested Thank you. Patient's request for medication is as follows: Requested Prescriptions Pending Prescriptions Disp Refills belimumab (BENLYSTA) 200 mg/mL auto-injector 12 mL 3 Sig: Inject 200mg (1 pen) subcutaneously once weekly Prescription(s) as above. Please process accordingly. Lynne Ni MD Patient needs refill of Benlysta Date of Ariadna Haley's last Rheumatology office visit: 03/18/24 Next appointment date: 10/07/24 Last labs: 08/29/24 Last TB test: TB Result Date Value Ref Range Status 03/23/2024 Negative Final Requested Prescriptions Pending Prescriptions Disp Refills belimumab (BENLYSTA) 200 mg/mL auto-injector 12 mL 3 Sig: Inject 200mg (1 pen) subcutaneously once weekly Patient prefers: [facility] Thank you! Maria Esther Pichardo, [place] Clinical Pharmacist, [employer] [facility] ; Pool: P [facility] Pool #: [id number] documented in this encounter [facility] 09-18-2024 Telephone encounter Note Patient will be calling to reschedule her IV IG and benlysta. She needs to find a electrifier operator and will call back with the dates that she will be available. [facility] 09-18-2024 Miscellaneous Notes Patient will be calling to reschedule her IV IG and benlysta. She needs to find a electrifier operator and will call back with the dates that she will be available. documented in this encounter [facility] 09-18-2024 Telephone encounter Note Patient needs refill of Benlysta Date of Ariadna Haley's last Rheumatology office visit: 03/18/24 Next appointment date: 10/07/24 Last labs: 08/29/24 Last TB test: TB Result Date Value Ref Range Status 03/23/2024 Negative Final Requested Prescriptions Pending Prescriptions Disp Refills belimumab (BENLYSTA) 200 mg/mL auto-injector 12 mL 3 Sig: Inject 200mg (1 pen) subcutaneously once weekly Patient prefers: [facility] Thank you! Maria Esther Pichardo, PharmD Clinical Pharmacist, [employer] [facility] ; Pool: P [facility] Pool #: [id number] [facility] 09-12-2024 Telephone encounter Note Patient has been scheduled at [place] [facility] 09-12-2024 Miscellaneous Notes Patient has been scheduled at [place] Patient called back and is now in agreement to schedule for Benlysta. Patient has been scheduled for 09/18. She will make her future appointments at this visit when she can work around her family arrangements. Spoke w/ T Schneider regarding daughter recommendations and patient informed. Sherrie Cortes Images from the original note were not included. Call placed to patient. She states her last SQ injection was on Wednesday, 09/09. Patient wants to hold off on scheduling right now due to family arrangements and will contact our office when she is ready to scheduled. Informed patient of the below scheduling for the drug. Sandhya Hicks RP You25 minutes ago (11:20 AM) Please schedule her every 2 weeks for 3 doses, then every 4 weeks for Benlysta. Sandhya Vicente Laura, RPh You27 minutes ago (11:18 AM) LS Auth is submitted and pending - okay to set her up 7+ days out. When you call her ask her when she had her last SQ dose, per the provider okay to schedule the IV dose 1 week after her SQ dose. ThanksSandhya Please start prior authorization for IV benlysta Signed therapy plan with loading doses if approved by insurance. May schedule 1week after last sq injection benlysta pen if approved. Thank you Patient has requested to switch from Benlysta injections to infusions. Will forward to Rheum provider. Anahi Becerril RN nurse orchard manager: patient would like to know if she can bring her 8 year old to treatments in the summer. Basia Samuel RN documented in this encounter [facility] 09-12-2024 Telephone encounter Note Patient called back and is now in agreement to schedule for Benlysta. Patient has been scheduled for Wednesday, 09/18. She will make her future appointments at this visit when she can work around her family arrangements. Spoke w/ T Schneider regarding daughter recommendations and patient informed. Sherrie Cortes [facility] 09-11-2024 Telephone encounter Note Images from the original note were not included. Call placed to patient. She states her last SQ injection was on Wednesday, 09/09. Patient wants to hold off on scheduling right now due to family arrangements and will contact our office when she is ready to scheduled. Informed patient of the below scheduling for the drug. Sandhya Hicks RPh You25 minutes ago (11:20 AM) Please schedule her every 2 weeks for 3 doses, then every 4 weeks for Benlysta. Sandhya Vicente Laura, RPh You27 minutes ago (11:18 AM) LS Auth is submitted and pending - okay to set her up 7+ days out. When you call her ask her when she had her last SQ dose, per the provider okay to schedule the IV dose 1 week after her SQ dose. ThanksSandhya [facility] 09-07-2024 Telephone encounter Note Please start prior authorization for IV benlysta Signed therapy plan with loading doses if approved by insurance. May schedule 1week after last sq injection benlysta pen if approved. Thank you [facility] 09-07-2024 Telephone encounter Note Results discussed with pt. She is set for IVIG 10/04/24. She denies further questions needs or concerns at this time. Enma Hamm, RN [facility] 09-07-2024 Miscellaneous Notes Results discussed with pt. She is set for IVIG 10/04/24. She denies further questions needs or concerns at this time. Enma Hamm RN documented in this encounter [facility] 09-06-2024 Telephone encounter Note Patient has requested to switch from Benlysta injections to infusions. Will forward to Rheum provider. Anahi Becerril RN nurse orchard manager: patient would like to know if she can bring her 8 year old to treatments in the summer. Basia Samuel RN [facility] 09-06-2024 History of Present illness Narrative Images from the original note were not included. NAME: Ariadna Haley [facility] NO.: [id number] DATE OF SERVICE: September 06, 2024 (John) Some elements in this clinic note that are critical to medical decision making have been carefully reviewed and included from a prior clinic note dated: June 13, 2024 (John) Referring Provider: Dr. Manuel Ferris Additional Clinicians [...] possible bronchitis, no cough Updated Visit, September 06, 2024: Ariadna returns today for a follow-up visit. Saw saw another infectious disease doctor in . Going to monitor her breast infection, not getting any worse. Some intermittent diarrhea. Going to start PO iron daily, does not want to do IV iron at this time. She continues to have fatigue and shortness of breath with exertion. She denies fever, chills, diarrhea, constipation, nausea or vomiting. She will receive IVIG and B12 today. Updated Visit, June 13, 2024: Ariadna returns today for a follow-up visit. She is here for B-12 and IVIG. 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 Not being treated.her OBGYN originally did the culture. Previously saw infectious disease and she did not agree with his plan- would like to see someone else. Continues to have fatigue [...] lower lip done 2 days ago at [facility] - awaiting results. B12 helps especially [...] She follows with multiple doctors including and manager work, floor attendant, patient care representative and PCP. She has been told they [...] PERFORMANCE STATUS: 0 PHYSICAL EXAMINATION: Vitals: BP 116/64 Pulse 77 Temp (Src) 97.5 (Temporal) Resp 18 Ht 5' 7.008 (1.70m) Wt 290 lb 9.1 oz (131.8kg) SpO2 97% LMP 05/30/2024 BMI 45.50 kg/(m^2). Body surface area is 2.5 meters squared. No exam ALLERGIES: ALLERGIES Allergen [...] side effects. MEDICATIONS: predniSONE (DELTASONE) 10 mg tablet^TAKE 1 TABLET BY MOUTH EVERY DAY WITH FOOD NO ORAL NSAIDS^Disp: 30 tablet^Rfl: 5 TRULICITY 0.75 mg/0.5 mL pen injector^Inject 0.75 mg subcutaneously one time a week. Per PCP^Disp: ^Rfl: pilocarpine (SALAGEN) 5 mg tablet^TAKE 1 TABLET BY MOUTH THREE TIMES A DAY^Disp: 135 tablet^Rfl: 1 gycdbvsaveGYECC-ecmsnz-doehfyfqs (BMX 1:1:1) 1:1:1 liqd^Take 5 mL by mouth every 6 hours as needed.^Disp: 500 mL^Rfl: 1 ergocalciferol 50,000 unit capsule (VITAMIN D2, DRISDOL)^Take 1cap by mouth 3times a week x 10weeks, then once a week with food.^Disp: 34 capsule^Rfl: 1 predniSONE (DELTASONE) 10 mg tablet^Take 40mg daily x 3, decrease by 5mg every 3days until taking 10mg daily with food thereafter (no oral nsaids)^Disp: 120 tablet^Rfl: 1 folic acid 1 mg tablet^Take 1 tablet by mouth once daily.^Disp: 90 tablet^Rfl: 3 azaTHIOprine (IMURAN) 50 mg tablet^TAKE 3 TABLETS BY MOUTH DAILY WITH FOOD. HOLD IF ON ANTIBIOTICS OR ILL.^Disp: 270 tablet^Rfl: 1 hydrOXYchloroQUINE (PLAQUENIL) 200 mg tablet^TAKE 1 TAB TWICE A DAY WITH FOOD *SUNSCREEN WHILE OUTDOORS/OPHTHAMOLOGY EVERY 6-12 MONTHS WHILE ON*^Disp: 60 tablet^Rfl: 11 belimumab (BENLYSTA) 200 mg/mL auto-injector^Inject 200mg (1 pen) subcutaneously once weekly^Disp: 12 mL^Rfl: 3 metoprolol tartrate, short acting, (LOPRESSOR) 50 mg tablet^Take 100 mg by mouth two times a day.^Disp: ^Rfl: CPAP/BIPAP/OTHER^Type .CPAPSettings into a note to see current settings/supplies/DME information.^Disp: 1 Each^Rfl: 0 acetaminophen (TYLENOL) 500 mg tablet^Take 1,000 mg by mouth.^Disp: ^Rfl: aspirin 81 mg chewable tablet^Take 81 mg by mouth.^Disp: ^Rfl: ibuprofen (MOTRIN) 200 mg tablet^Take 600 mg by mouth. ^Disp: ^Rfl: pregabalin (LYRICA) 75 mg capsule^take 1 capsule by mouth three times a day^Disp: 270 capsule^Rfl: 3 LABORATORY VALUES: WBC (k/uL) Date Value 08/29/2024 13.12 (H) RBC (m/uL) Date Value 08/29/2024 4.57 Hemoglobin (g/dL) Date Value 08/29/2024 13.8 Hematocrit (%) Date Value 08/29/2024 42.9 MCV (fL) Date Value 08/29/2024 93.9 MCH (pg) Date Value 08/29/2024 30.2 MCHC (g/dL) Date Value 08/29/2024 32.2 RDW-CV (%) Date Value 08/29/2024 16.0 (H) Platelet Count (k/uL) Date Value 08/29/2024 291 MPV (fL) Date Value 08/29/2024 9.5 Glucose (mg/dL) Date Value 08/29/2024 139 (H) BUN (mg/dL) Date Value 08/29/2024 18 Creatinine (mg/dL) Date Value 08/29/2024 0.64 Sodium (mmol/L) Date Value 08/29/2024 139 Potassium (mmol/L) Date Value 08/29/2024 4.4 Chloride (mmol/L) Date Value 08/29/2024 101 CO2 (mmol/L) Date Value 08/29/2024 26 Protein, Total (g/dL) Date Value 08/29/2024 7.1 Albumin (g/dL) Date Value 08/29/2024 4.2 Calcium, Total (mg/dL) Date Value 08/29/2024 10.3 (H) Alkaline Phosphatase (U/L) Date Value 08/29/2024 69 Bilirubin, Total (mg/dL) Date Value 08/29/2024 0.2 AST (U/L) Date Value 08/29/2024 15 ALT (U/L) Date Value 08/29/2024 38 Cholesterol, Total (mg/dL) Date Value 05/21/2015 217 (H) Triglyceride (mg/dL) Date Value 05/21/2015 242 (H) DIAGNOSIS: (D80.1) Hypogammaglobulinemia (HCC) (primary encounter diagnosis) Plan: IMMUNOGLOBULINS,IGG,IGA,IGM (E53.8) Vitamin B12 deficiency (D50.8) Other iron deficiency anemia (D53.1) Megaloblastic anemia due to vitamin B12 deficiency PAST MEDICAL HISTORY Diagnosis Date Chronic pain syndrome Depression, recurrent Diffuse cystic mastopathy H/O mammogram 11/09/2013 Hypotension, unspecified Low back pain Megaloblastic anemia due to vitamin B12 deficiency 03/04/2022 Mixed hyperlipidemia Obesity, unspecified Pain, hip Physical exam, annual 01/16/14 Pilonidal cyst with abscess Sacroiliitis Sciatica Tobacco use disorder Vitamin B12 deficiency [...] (Crohn's [Other]) Mother . Vaibhav Carvalho APRN, QUALITY CLOTH TESTER-C, O[facility] Provided at: [place], [place] CC: Manuel Ferris MD [phone] [place] [id number] documented in this encounter [facility] 09-06-2024 Note [facility] 09-04-2024 History of Present illness Narrative Subjective Patient ID: Ariadna Haley is a 43 y.o. female who presents for Thyroid Nodule (Follow up ultrasound [facility] 08/24/24) Thyroid US shows a [id number] left inf pole TR4 nodule. Radiology notes no sig change Family History Problem Relation Name Age of Onset Crohn's disease Mother Nieves Thyroid disease Mother Nieves Stomach cancer Father Micheal Cancer Father Micheal Pancreatitis Father Micheal No Known Problems Sister 1 No Known Problems Daughter Lung disease Son Diabetes Maternal Grandmother Clelaura Heart failure Maternal Grandmother Clelaura Rheum arthritis Maternal Grandmother Clelaura Other (lung issue) Child 1 son with lung issue, 3 daughters Active Ambulatory Problems Diagnosis Date Noted Autoimmune [...] 03/05/2021 Hair loss 03/05/2021 Hyperlipidemia (CMS/HCC) 05/31/2014 prison 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 02/04/2023 Long-term [...] arthritis of lumbar region 12/15/2023 Prediabetes 08/24/2023 C. difficile diarrhea 03/07/2024 Diarrhea 03/07/2024 Duct ectasia of breast 03/07/2024 Frequent infections 04/01/2024 GERD (gastroesophageal reflux disease) 03/07/2024 History of vitamin D deficiency 10/05/2023 Hypogammaglobulinemia ([facility]) 04/01/2024 Insulin resistance 03/07/2024 Lupus erythematosus 04/06/2024 Sacroiliitis ([facility]) 04/06/2024 Resolved Ambulatory Problems Diagnosis Date Noted No Resolved Ambulatory Problems Past Medical History: Diagnosis Date Cervical lymphadenopathy COVID-19 vaccine administered Difficulty walking Fatigue Fibromyalgia, primary History of removal of cyst 2012 HTN (hypertension) ([facility]) Hx of abnormal cervical Pap smear 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[facility]) Laryngopharyngeal reflux disease Lupus Nonscarring hair loss, unspecified Nontoxic goiter, unspecified ([facility]) Nontoxic single thyroid nodule ([facility]) Numbness Oral thrush Sleep apnea Vitamin D deficiency, unspecified Weakness of limb Past Surgical History: Procedure [...] (Tylenol) 325 MG tablet every 4 (four) hours aspirin 81 MG chewable tablet Chew 81 mg Daily azaTHIOprine (Imuran) 50 MG tablet Take 150 mg by mouth Daily baclofen (Lioresal) 5 MG tablet TAKE 1 TABLET BY MOUTH IN THE MORNING, EVENING AND BEFORE BEDTIME 270 tablet 1 belimumab (Benlysta) 200 MG/ML injection Inject 200 mg under the skin 1 (one) time per week Chlorhexidine Gluconate (Hibiclens) 4 % solution Use every day in shower from the neck down to affected areas. 532 mL 11 clindamycin (Cleocin T) 1 % lotion Apply thin later to affected areas on the thighs, once daily, 30 day supply 60 mL 11 Clobetasol Propionate 0.05 % shampoo 1 application to the scalp in the shower topically 3-4 times a week 236 mL 11 diclofenac sodium 1 % gel ergocalciferol (Vitamin D2) 1.25 MG (51571 UT) capsule Take 50,000 Units by mouth 1 (one) time per week fluocinonide (Lidex) 0.05 % external solution Apply to affected areas on the scalp, up to twice a day when flared, 30 day supply 60 mL 11 fluticasone (Flonase) 50 MCG/ACT nasal [...] time each day at the same time ibuprofen 200 MG tablet every 8 (eight) hours KlonoPIN 0.5 MG tablet 1 tablet Orally Once a day prn for 30 days metoprolol tartrate (Lopressor) 50 MG tablet Take 100 mg by mouth in the morning and 100 mg before bedtime. norethindrone-ethinyl estradiol-iron (Lo Loestrin Fe) 1 MG-10 MCG / 10 MCG tablet Take 1 tablet by mouth Daily Take 1 tablet by mouth daily 28 tablet 11 nystatin (Mycostatin) cream Apply to left armpit BID until clear 15 g 0 pantoprazole (ProtoNix) 20 MG EC tablet Take 20 mg by mouth in the morning. Take before meals. Do not crush, chew, or split. predniSONE 10 MG (21) tablet therapy pack Take 10 mg by mouth 1 (one) time each day at the same time tacrolimus (Protopic) 0.1 % ointment Apply to affected area on forehead bid prn flares, hold if clear 30 g 11 thiamine (Vitamin B-1) 100 MG tablet Take 1 tablet (100 mg) by mouth in the morning. 90 tablet 3 tretinoin (Retin-A) 0.05 % cream Apply to face, once daily at evening/night time, 30 day supply 20 g 11 Triamcinolone Acetonide 0.025 % lotion 1 application Trulicity 1.5 MG/0.5ML solution auto-injector INJECT SUBCUTANEOUSLY ONCE A WEEK DIRECTED [DISCONTINUED] ALPRAZolam (Xanax) 0.25 MG tablet immune globulin, human, (Gammagard) infusion Infuse into a venous catheter [DISCONTINUED] famotidine (Pepcid) 20 MG tablet Take 1 tablet (20 mg) by mouth at bedtime 90 tablet 0 [DISCONTINUED] omeprazole (PriLOSEC) [address] capsule Take 1 capsule (40 mg) by mouth in the morning. Take before meals. Do not crush or chew.. 90 capsule 0 No current facility-administered medications on file prior to visit. Objective Last Recorded Vitals Vitals: 09/04/24 1504 BP: 112/73 Pulse: 101 ENT Physical Exam Constitutional Appearance: patient appears well-developed, well-nourished and well-groomed, Communication/Voice: communication appropriate for developmental age; vocal quality normal; Assessment/Plan Diagnoses and all orders for this visit: Thyroid nodule (CMS/HCC) LPRD (laryngopharyngeal reflux disease) New small TR4 nodule described. Though radiology states there is no change I recommend checking and US in 6 mo. Pt has now seen mult ENT who all agree she has LPRD, yet her sx are not well managed. Recommend GI eval for more aggressive care documented in this encounter [facility] 09-02-2024 Telephone encounter Note Called and spoke with patient, patient is scheduled for a VV on 10/07/24 at 8:00am. Patient stated will complete labs a walk in [facility] 09-02-2024 Miscellaneous Notes Called and spoke with patient, patient is scheduled for a VV on 10/07/24 at 8:00am. Patient stated will complete labs a walk in Please call and schedule nonfasting labs next month. Please schedule follow up visit. May offer Sat. Clinics. Temporary medication refilled Thank you. Patient's request for medication is as follows: Requested Prescriptions Pending Prescriptions Disp Refills predniSONE (DELTASONE) 10 mg tablet 30 tablet 5 Sig: TAKE 1 TABLET BY MOUTH EVERY DAY WITH FOOD NO ORAL NSAIDS Prescription(s) as above. Please process accordingly. Lynne Ni MD Images from the original note were not included. Most recent Rheumatology visit: 03/18/2024 (with Lynne Ni) Last Bone Density on file: None on file Rheumatology Care Team: None on file Recent Office Visits - This Specialty 03/18/2024 Other systemic lupus erythematosus with other organ involvement (HCC) Rheumatology Lynne Ni MD 10/05/2023 Other systemic lupus erythematosus with other [...] found. CBC: Latest Ref Rng & Units 06/30/2024 08/29/2024 CBC WBC 3.70 - 11.00 k/uL 12.66 13.12 Hemoglobin 11.5 - 15.5 g/dL 13.5 13.8 Hematocrit 36.0 - 46.0 % 41.3 42.9 Platelet Count 150 - 400 k/uL 341 291 Abs Neut (ANC) 1.45 - 7.50 k/uL 9.82 Abs Lymph 1.00 - 4.00 k/uL 2.07 Vitamin D: Latest Ref Rng & Units 03/23/2024 06/30/2024 Vitamin D Vitamin D 25 Hydroxy 31.0 - 80.0 ng/mL 19.9 28.5 LFT: Latest Ref Rng & Units 06/30/2024 08/29/2024 CMP Sodium 136 - 144 mmol/L 140 139 Potassium 3.7 - 5.1 mmol/L 3.8 4.4 Chloride 98 - 107 mmol/L 103 101 CO2 22 - 30 mmol/L 27 26 Glucose 74 - 99 mg/dL 116 139 BUN 7 - 21 mg/dL 18 18 Creatinine 0.58 - 0.96 mg/dL 0.78 0.64 Calcium 8.5 - 10.2 mg/dL 9.5 10.3 AST 13 - 35 U/L 12 15 ALT 7 - 38 U/L 26 38 Alkaline Phosphatase 34 - 123 U/L 52 69 Hepatic Function: Creatinine: Latest Ref Rng & Units 06/30/2024 08/29/2024 Creatinine Creatinine 0.58 - 0.96 mg/dL 0.78 0.64 ESR/CRP: Latest Ref Rng & Units 06/13/2024 06/30/2024 ESR, WSR WSR 0 - 20 mm/hr 30 28 Latest Ref Rng & Units 03/23/2024 06/30/2024 CRP CRP <0.9 mg/dL 0.3 0.1 Uric Acid: None on file in the last 6 months Open Standing (Multiple Instance) Lab Orders None Open Future (Single Instance) Lab Orders Expected Expires Ordered COMPREHENSIVE METABOLIC PANEL [SQCMP] 10/06/24 07/09/25 07/09/24 Auth. provider: Lynne Ni MD Assoc. diagnoses: Elevated LFTs COMPLETE BLOOD COUNT [SQCBC] 10/06/24 07/09/25 07/09/24 Auth. provider: Lynne Ni MD Assoc. diagnoses: Anemia of chronic disease SEDIMENTATION RATE, WESTERGREN [SQWSR] 10/06/24 07/09/25 07/09/24 Auth. provider: Lynne Ni MD Assoc. diagnoses: Elevated sed rate, Elevated C-reactive protein (CRP) C-REACTIVE PROTEIN [SQCRP] 10/06/24 07/09/25 07/09/24 Auth. provider: Lynne Ni MD Assoc. diagnoses: Elevated sed rate, Elevated C-reactive protein (CRP) VITAMIN D 25 HYDROXY [SQVITD] 10/06/24 07/09/25 07/09/24 Auth. provider: Lynne Ni MD Assoc. diagnoses: Vitamin D deficiency documented in this encounter [facility] 09-01-2024 Telephone encounter Note Please call and schedule nonfasting labs next month. Please schedule follow up visit. May offer Sat. Clinics. Temporary medication refilled Thank you. Patient's request for medication is as follows: Requested Prescriptions Pending Prescriptions Disp Refills predniSONE (DELTASONE) 10 mg tablet 30 tablet 5 Sig: TAKE 1 TABLET BY MOUTH EVERY DAY WITH FOOD NO ORAL NSAIDS Prescription(s) as above. Please process accordingly. Lynne Ni MD [facility] 09-01-2024 Telephone encounter Note Images from the original note were not included. Most recent Rheumatology visit: 03/18/2024 (with Lynne Ni) Last Bone Density on file: None on file Rheumatology Care Team: None on file Recent Office Visits - This Specialty 03/18/2024 Other systemic lupus erythematosus with other organ involvement (HCC) Rheumatology Lynne Ni MD 10/05/2023 Other systemic lupus erythematosus with other [...] found. CBC: Latest Ref Rng & Units 06/30/2024 08/29/2024 CBC WBC 3.70 - 11.00 k/uL 12.66 13.12 Hemoglobin 11.5 - 15.5 g/dL 13.5 13.8 Hematocrit 36.0 - 46.0 % 41.3 42.9 Platelet Count 150 - 400 k/uL 341 291 Abs Neut (ANC) 1.45 - 7.50 k/uL 9.82 Abs Lymph 1.00 - 4.00 k/uL 2.07 Vitamin D: Latest Ref Rng & Units 03/23/2024 06/30/2024 Vitamin D Vitamin D 25 Hydroxy 31.0 - 80.0 ng/mL 19.9 28.5 LFT: Latest Ref Rng & Units 06/30/2024 08/29/2024 CMP Sodium 136 - 144 mmol/L 140 139 Potassium 3.7 - 5.1 mmol/L 3.8 4.4 Chloride 98 - 107 mmol/L 103 101 CO2 22 - 30 mmol/L 27 26 Glucose 74 - 99 mg/dL 116 139 BUN 7 - 21 mg/dL 18 18 Creatinine 0.58 - 0.96 mg/dL 0.78 0.64 Calcium 8.5 - 10.2 mg/dL 9.5 10.3 AST 13 - 35 U/L 12 15 ALT 7 - 38 U/L 26 38 Alkaline Phosphatase 34 - 123 U/L 52 69 Hepatic Function: Creatinine: Latest Ref Rng & Units 06/30/2024 08/29/2024 Creatinine Creatinine 0.58 - 0.96 mg/dL 0.78 0.64 ESR/CRP: Latest Ref Rng & Units 06/13/2024 06/30/2024 ESR, WSR WSR 0 - 20 mm/hr 30 28 Latest Ref Rng & Units 03/23/2024 06/30/2024 CRP CRP <0.9 mg/dL 0.3 0.1 Uric Acid: None on file in the last 6 months Open Standing (Multiple Instance) Lab Orders None Open Future (Single Instance) Lab Orders Expected Expires Ordered COMPREHENSIVE METABOLIC PANEL [SQCMP] 10/06/24 07/09/25 07/09/24 Auth. provider: Lynne Ni MD Assoc. diagnoses: Elevated LFTs COMPLETE BLOOD COUNT [SQCBC] 10/06/24 07/09/25 07/09/24 Auth. provider: Lynne Ni MD Assoc. diagnoses: Anemia of chronic disease SEDIMENTATION RATE, WESTERGREN [SQWSR] 10/06/24 07/09/25 07/09/24 Auth. provider: Lynne Ni MD Assoc. diagnoses: Elevated sed rate, Elevated C-reactive protein (CRP) C-REACTIVE PROTEIN [SQCRP] 10/06/24 07/09/25 07/09/24 Auth. provider: Lynne Ni MD Assoc. diagnoses: Elevated sed rate, Elevated C-reactive protein (CRP) VITAMIN D 25 HYDROXY [SQVITD] 10/06/24 07/09/25 07/09/24 Auth. provider: Lynne Ni MD Assoc. diagnoses: Vitamin D deficiency [facility] 08-28-2024 Telephone encounter Note Do you want labs? Patient coming in Wednesday09/06/24 for follow up treatment. Thanks, Renea Schneider MA [facility] 08-22-2024 Miscellaneous Notes Do you want labs? Patient coming in Wednesday09/06/24 for follow up treatment. Thanks, Renea Schneider MA documented in this encounter [facility] 08-17-2024 Note [facility] 08-08-2024 Telephone encounter Note Patient has requested her IVIG rate to infuse at a flat 40 ml/hr initial rate x 30 minutes then 86 ml/hr for the remainder of the infusion, states she has tolerated her last [address] Also has concerns in regards to saline not being compatible with IVIG and states this can cause blood clots . The main line was flushed with normal saline as ordered, compatibility confirmed and patient is aware. Basia Samuel RN [facility] 08-08-2024 Miscellaneous Notes Patient has requested her IVIG rate to infuse at a flat 40 ml/hr initial rate x 30 minutes then 86 ml/hr for the remainder of the infusion, states she has tolerated her last [address] Also has concerns in regards to saline not being compatible with IVIG and states this can cause blood clots . The main line was flushed with normal saline as ordered, compatibility confirmed and patient is aware. Basia Samuel RN documented in this encounter [facility] 08-08-2024 Note [facility] 08-08-2024 History of Present illness Narrative Patient states that she spoke with provider and she will defer IV iron for now, she is taking oral iron and will have labs rechecked in 1 month Basia Samuel RN documented in this encounter [facility] 07-26-2024 History of Present illness Narrative Lulu Haley is a 43 y.o. female Chief [...] lupus being treated by rheumatology at the [facility] on steroids, Plaquenil and monoclonal antibody [...] , Rfl: ergocalciferol (Vitamin D-2) 1.25 MG (14715 UT) capsule, Take 1 capsule (50,000 Units) [...] Scribe Attestation By signing my name below, ICarinaMaikol Harris LPN attest that this documentation has been prepared [...] discussion and plan. documented in this encounter [facility] Work Phone: 07-26-2024 Instructions Aissatou Hanson [...] of your visit. documented in this encounter [facility] Work Phone: 07-25-2024 History of Present [...] ointment bid. On Plaquenil and Benlysta from floor attendant and started IVIG from head kiln operator. Follow up Diagnosis: Hidradenitis Location: thighs Last [...] given frequent flares of thrush. Start Nystatin 090977 unit suspension qid x 14 days. Recommended [...] not swallow it. Related Medications nystatin (Mycostatin) 825461 UNIT/ML suspension Take 4 mL (400,000 Units) [...] is needed. Instructed to follow up with HEALTH EDUCATION COORDINATOR for further work up. Next Visit: 1 year documented in this encounter [facility] 07-25-2024 History of Present illness Narrative [facility] [...] been reviewed prior to dispensing the medication. Beading Machine Operator Assessment Patient confirmed: Yes Med/dose confirmed: Yes Supplies needed: No supplies needed Missed doses: No Copay amount: 0 Payment confirmed: Yes Delivery method: FedEx Signature required: Waived on patient request Delivery address: [address] [place] [address], [facility] [address] Delivery date: 07/27/24 Questions or concerns for the pharmacist?: No Did you have any side effects believed to be related to this medication, that resulted in hospitalization?: No Current Outpatient Medications on File Prior to Visit Medication Sig quldsswpczYFVRE-phabff-eqjndbrka (BMX 1:1:1) 1:1:1 liqd Take 5 mL [...] facility-administered medications on file prior to visit. [facility] SPECIAL[facility] CLINICAL ASSESSMENT - INFLAMMATORY CONDITIONS [...] tolerated. Luna Emanuel documented in this encounter [facility] 07-25-2024 Note [facility] 07-20-2024 Note HNO ID: [id number] Author: ALHAJI HEAD, DO Service: ? Author Type: Physician Type: Progress Notes Filed: 07/21/2024 13:05 Note Text: VIRTUAL VISIT PROGRESS NOTE This is a virtual visit using [employer] Video Visit. It required patient-provider interaction for the medical decision making as documented below. I have communicated my name and active licensure. The patient's identity and physical location were verified at the time of this visit. Either the patient or their legal field support representative has been informed of the risks [...] of 18 Current Outpatient Medications Medication Sig hlierunoxnPJSHI-fdxryd-fwvoxszmc (BMX 1:1:1) 1:1:1 liqd Take 5 mL [...] ON* belimumab ( (more content not included)... [facility] 07-20-2024 History of Present illness Narrative VIRTUAL VISIT PROGRESS NOTE This is a virtual visit using [employer] Video Visit. It required patient-provider interaction for the medical decision making as documented below. I have communicated my name and active licensure. The patient's identity and physical location were verified at the time of this visit. Either the patient or their legal field support representative has been informed of the risks [...] of 18 Current Outpatient Medications Medication Sig mjkfojswhmVPJHN-abyscy-ixcqyqnzh (BMX 1:1:1) 1:1:1 liqd Take 5 mL [...] on the R. The patient or authorized field support representative has agreed to proceed with the [...] axillary nodule which is being followed by software development engineer. Through shared decision making with the patient, [...] up with ID at this time. Alhaji Head DO July 21, 2024 documented in this encounter [facility] 07-19-2024 Procedure note [facility] C enter 07-12-2024 Instructions Marky Barnes PA-C - 07/12/2024 2:33 PM EST Alginate therapy (Reflux Raft, Reflux Gourmet) documented in this encounter [facility] 07-12-2024 Note [facility] 07-12-2024 History of Present illness Narrative Images from the original note were not included. [facility] NOTE CC: Ariadna Haley is a [...] C PAST SURGICAL HISTORY OF 1990s ablation Current medication(s): Current Outpatient Medications Medication Sig fjkkzayykoUYQJV-zllshj-jfxfdpcwc (BMX 1:1:1) 1:1:1 liqd Take 5 mL [...] 3 - Low documented in this encounter [facility] 07-10-2024 Evaluation note Diagnosis Onset Date Resolution Lumbosacral spondylosis acute F ebruary 2024 3:16pm Other chronic pain acute Februa 2024 3:16pm Sacroiliitis acute June 3:16pm [facility] Work Phone: 1(549) 523-820702-17-2025 Evaluation note* Diagnosis Onset Date Resolution Status Admit Date Lumbosacral spondylosis acute F ebruary 2024 3:16pm Other chronic pain acute Februa 2024 3:16pm Sacroiliitis acute June 3:16pm Lumbosacral spondylosis acute M 2024 3:40pm Other chronic pain acute July 31, 2024 3:40pm Sacroiliitis acute July 31, 2024 3:40pm [facility] Work Phone: 1(653) 978-164502-17-2025 Telephone encounter Note* Telephone Encounter - Krista Braswell MA - 07/10/2024 7:28 AM EST Pt was notified via . [facility]02-17-2025 Miscellaneous Notes* Telephone Encounter - Krista Fonseca MA - 07/10/2024 7:28 AM EST Pt was notified via . * Telephone Encounter - Lynne Ni MD - 07/09/2024 3:48 PM EST Please Call patient if MyChart note not read to review results/released to My Chart if tests completed at [facility]: Mildly high normal wbc, glucose, one [...] accordingly. Lynne Ni MD [facility] Telephone encounter Note * Telephone Encounter - [...] above. Please process accordingly. Lynne Ni MD [facility]02-06-2025 History of Present illness Narrative* Luna Emanuel - 06/29/2024 1:13 PM EST [facility] Special[facility] Refill Assessment Medication(s): [...] been reviewed prior to dispensing the medication. Beading Machine Operator Assessment Patient confirmed: Yes Med/dose confirmed: Yes Supplies needed: No supplies needed Missed doses: No Estimated days supply on hand: 1 Copay amount: 0 Payment confirmed: Yes Delivery method: FedEx Signature required: Waived on patient request Delivery address: [address] [place] [id number] Delivery date: 07/05/24 Questions or concerns for [...] facility-administered medications on file prior to visit. [facility] SPECIALTY CLINICAL ASSESSMENT - INFLAMMATORY CONDITIONS [...] longer tolerated. Luna Emanuel [facility] encounter Note* Telephone Encounter - Krista Fonseca MA - 06/23/2024 8:27 AM EST Pt has been notified via [employer]. [facility]01-31-2025 Miscellaneous Notes* Telephone Encounter - Krista Fonseca MA - 06/23/2024 8:27 AM EST Pt has been notified via [employer]. * Telephone Encounter - Lynne Ni MD [...] accordingly. Lynne Ni MD [facility] Telephone encounter Note * Telephone Encounter - [...] above. Please process accordingly. Lynne Ni MD [facility]01-29-2025 Telephone encounter Note* Telephone Encounter - Sherrie Cortes - 06/21/2024 2:10 PM EST Thanks for the clarification! I didn't schedule the patient yet for Iron because of the question below so we are all good. Thank you! Sherrie Cortes [facility]01-29-2025 Miscellaneous Notes* Telephone Encounter - Sherrie Cortes [...] in 3 months, as previously scheduled AVILA Diallo: pt can come off the IV Iron [...] we will recheck. thanks [facility] Telephone encounter Note * Telephone Encounter - Enma Hamm RN - 06/21/2024 1:14 PM EST Spoke with pt and she would like to try the OTC, as discussed. She is aware and agreeable to recheck in 3 months, as previously scheduled Enma Hamm RN [place]: pt can come off the IV Iron schedule. She will still continue with B12, as previously receiving. She is aware you will call if needed. [facility]01-29-2025 Telephone encounter Note* Telephone Encounter - Vaibhav Carvalho APRN.TRUE - 06/21/2024 1:07 PM EST Ok that is fine she can try oral iron Ferrous sulfate 325 mg every other day. Ok to keep her next appointment and we will recheck. thanks [facility]01-28-2025 Telephone encounter Note* Telephone Encounter - Sherrie Cortes - 06/20/2024 8:38 AM EST Left another message for patient. Sent MyChart to call back to schedule infusions when she's ready to schedule and provided phone number. Sherrie Cortes [facility]01-28-2025 Miscellaneous Notes* Telephone Encounter - Sherrie Cortes [...] callback with any questions. documented in this encounterMarietta Memorial Hospital01-24-2025 Telephone encounter Note * Telephone Encounter - Sherrie Cortes - 06/16/2024 3:32 PM EST Call placed to patient, no answer. Left detailed message to call back to schedule for Venofer. Sherrie Cortes [facility]01-24-2025 Telephone encounter Note* Telephone Encounter - Vaibhav Carvalho APRN.CNP - 06/16/2024 12:26 PM EST Called patient and left a message regarding iron infusions. I did inform patient that she is low oniron and we can replace with IV infusion. Will have the office call to schedule. Encouraged to callback with any questions. [facility]01-23-2025 Telephone encounter Note* Telephone Encounter - KELVIN [...] Pt had recent mammogram that was negative [facility] [id number] Miscellaneous Notes* Telephone Encounter - KELVIN Cabrera [...] mammogram that was negative documented in this encounterCarondelet HealthPkbudwucll11-22-5138 History of Present illness Narrative* Iraida Pate APRN.MRI TECHNICIAN - 06/14/2024 10:43 AM EST Glucose - SIBO CPT 82676 Hydrogen Breath Test Ariadna Haley 1980 June 14, 2024 Referring Physician: Bandar Portillo NP Indication: NSG TEST INDICATIONS: Diarrhea R19.7, Abdominal Pressure R10.9 Weight: 275 lbs Location: [facility] Duration of Test: 2 hrs Hydrogen Methane CO2 MEASURED CORRECTION FACTOR TESTERS NAME Baseline 9:00 am 1 5 5.1 1.07 Christopher Sullivan MA Test Solution Given: 100 gm glucose 10 oz liquid Christopher Sullivan MA #1 - 15 minutes 9:15 am 1 5 4.1 1.34 Christopher Sullivan MA #2 - 30 minutes 9:30 am 1 5 4.6 1.19 Christopher Sullivan MA #3 - 45 minutes 9:45 am 1 5 4.0 1.37 Christopher Sullivan MA #4 - 60 minutes 10:00 am 1 6 3.7 1.48 Christopher Sullivan MA #5 - 75 minutes 10:15 am 1 4 5.0 1.10 Christopher Sullivan MA #6 - 90 minutes 10:30 am 1 5 4.2 1.30 Christopher Sullivan MA #7 - 105 minutes 10:45 am 1 5 4.5 1.22 Christopher Sullivan MA #8 - 120 minutes 11:00 am 5 6 4.6 1.19 Christopher Sullivan MA Guidelines Baseline < 10 ppm Hydrogen (H2) > 20 ppm over baseline Methane (CH4) > 20 ppm over baseline Final Test Results: negative Physician Signature: Iraida Pate APRN.MRI TECHNICIAN documented in this encounterMarietta Memorial Hospital01-21-2025 Progress note* Allied Health - Dionne Driver Art Therapist [...] will follow upthen. SIGNATURE: Jose Daniel Erwin PATIENT NAME: Ariadna Haley DATE: June 13, 2024 TIME: 10:29 AM PAGER/CONTACT #: [facility]01-21-2025 Miscellaneous Notes* Allied Health - Dionne Driver [...] a later date, will follow upthen. SIGNATURE: Dionne Driver Art Therapist PATIENT NAME: Ariadna Haley DATE: June 13, 2024 TIME: 10:29 AM PAGER/CONTACT #: documented in this encounterMarietta Memorial Hospital01-21-2025 [facility]01-21-[facility] History of Present illness Narrative* Vaibhav Carvalho APRN.MRI TECHNICIAN - 06/13/2024 9:07 AM EST Images from the original note were not included. NAME: Ariadna Haley [facility] NO.: [id number] DATE OF SERVICE: June 13, 2024 (John) [...] lower lip done 2 days ago at [facility] - awaiting results. B12 helps especially [...] injections. 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 She has been told they [...] (Crohn's [Other]) Mother . Vaibhav Carvalho APRN, QUALITY CLOTH TESTER-C, [facility] Hematology and Oncology Services Provided at: [place], [place] CC: Manuel Ferris MD [address] [facility] [address] documented in this encounterMarietta Memorial Hospital01-20-2025 NoteC[facility]01-20-2025 History of Present illness Narrative* Lee Friedman - 06/12/2024 2:31 PM EST CMN RECEIVED BY [employer] VIA FAX, COMPLETED, AND PLACED IN PROVIDER MAILBOX FOR SIGNATURE Lee Friedman Coordinator III [employer] SENDING CMN: Josh SIGNED AND DATED CMN, FAXED TO DME & CONFIRMATION PAGE RECEIVED: 06.28.2024 documented in this encounterMarietta Memorial Hospital01-20-2025 Telephone encounter Note * Telephone Encounter - Margret Cuenca MA - 06/12/2024 12:00 PM EST Patient has an OTV appointment on 06/13. Please place lab orders. Margret Cuenca MA [facility]01-20-2025 Miscellaneous Notes* Telephone Encounter - Margret Cuenca MA - 06/12/2024 12:00 PM EST Patient has an OTV appointment on 06/13. Please place lab orders. Margret Cuenca MA documented in this encounterMarietta Memorial Hospital01-14-2025 History of Present illness Narrative* Luna Emanuel [...] been reviewed prior to dispensing the medication. Beading Machine Operator Assessment Patient confirmed: Yes Med/dose confirmed: Yes Supplies needed: No supplies needed Missed doses: No Estimated days supply on hand: 1 Copay amount: 0 Payment confirmed: Yes Delivery method: FedEx Signature required: Waived on patient request Delivery address: [address] [place] [address] Delivery date: 06/08/24 Questions or concerns for [...] facility-administered medications on file prior to visit. [facility] RX SPECIALTY CLINICAL ASSESSMENT - INFLAMMATORY CONDITIONS [...] longer tolerated. 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 Depression, recurrent ([facility]) 06/09/2023 Discoid lupus erythematosus ([facility]) 02/14/2022 Disturbance of skin sensation 07/06/2023 Elevated sed rate 03/05/2021 High total serum IgM 03/05/2021 Enthesopathy of hip region 07/06/2023 Essential hypertension ([facility]) 06/09/2023 Excessive and frequent menstruation with irregular cycle 09/24/2022 Family history of Crohn's disease 03/05/2021 Hair loss 03/05/2021 Hyperlipidemia ([facility]) 05/31/2014 prison 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 02/04/2023 Long-term use of high-risk medication 06/15/2022 Long-term use of Plaquenil 03/05/2021 LPRD (laryngopharyngeal reflux disease) 07/06/2023 Megaloblastic anemia due to vitamin B12 deficiency 03/04/2022 Myalgia 07/06/2023 Obesity, Class III, BMI 40-49.9 (morbid obesity) ([facility]) 09/07/2022 Obstructive sleep apnea syndrome [...] of abnormal cervical Pap smear 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[facility]) Insulin resistance Laryngopharyngeal reflux disease Lupus Nonscarring hair loss, unspecified Nontoxic goiter, unspecified (CMS/HCC) Nontoxic single thyroid nodule (CMS/HCC) Numbness Oral thrush Sleep apnea Vitamin D deficiency, unspecified Weakness of limb HISTORY PAST MEDICAL HISTORY SOCIAL HISTORY Past Medical History: Diagnosis Date Anxiety Cervical lymphadenopathy Chronic laryngopharyngitis COVID-19 vaccine administered x 2 (Neofect) Difficulty walking Fatigue Fibromyalgia, primary GERD (gastroesophageal [...] Grandmother Clelaura Rheum arthritis Maternal Grandmother Clelaura Other (lung issue) Child 1 son with [...] calculated from the following: Height as of 24: 5' 7 . Weight as of this [...] behalf of: KELVIN Cabrera documented in this encounterCarondelet HealthRallswmhip11-04-1939 NoteCleveland Clinic [facility]12-23-2024 History of Present illness Narrative* Deisy Jaime LSW - 05/15/2024 9:09 AM EST Patient's name appears on the [facility] First Time Treatment Report for a non- oncology treatment. No psychosocial assessment is indicated. BILL Rosenberg Goals of Care Advance Directives are not on file. documented in this encounterMarietta Memorial Hospital12-20-2024 History of Present illness Narrative* Luna Emanuel [...] been reviewed prior to dispensing the medication. 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 [facility] RX SPECIALTY CLINICAL ASSESSMENT - INFLAMMATORY CONDITIONS [...] longer tolerated. Luna Emanuel documented in this encounterMarietta Memorial Hospital12-20-2024 NoteC[facility] Clinic [facility]12-04-2024 Nurse Note* Radha Schofield MA - 04/26/2024 9:32 AM EST Patient Identification confirmed: yes. Injection given and documented on MAR per provider order. Radha Schofield MA [facility]12-04-2024 Nurse Note* Radha Schofield MA - 04/26/2024 9:32 AM EST Patient Identification confirmed: yes. Injection given and documented on MAR per provider order. Radha Schofield MA documented in this encounterMarietta [facility] Hospital11-22-2024 Telephone encounter Note * Telephone Encounter - Gay Barnett - 04/14/2024 12:11 PM EST Patient coming in for a sibo breath test on Wednesday and has been on keflex for 3 days and needs to be on for ten so she will need to reschedule [facility]11-22-2024 Miscellaneous Notes* Telephone Encounter - Gay Barnett - 04/14/2024 12:11 PM EST Patient coming in for a sibo breath test on Wednesday and has been on keflex for 3 days and needs to be on for ten so she will need to reschedule documented in this encounterMarietta [facility] Hospital11-19-2024 NoteC[facility]11-18-2024 Miscellaneous Notes* Telephone Encounter - Sherrie Cortes [...] insurance specialty pharmacy. Elpidio Arce, PharmD, BCOP * Telephone Encounter - Enma Hamm [...] less side effects. Pharmacy/[facility]: please advise Enma Hamm, RN * Telephone Encounter - Vera Najera [...] Please advise. Sherrie Cortes documented in this encounterMarietta Memorial Hospital11-18-2024 Telephone encounter Note * Telephone Encounter - Sherrie Cortes - 04/10/2024 2:12 PM EST Patient requested this appointment be rescheduled for the end of April. She has been scheduled for 05/19, she is all set. Thank you! Sherrie Cortes [facility]11-18-2024 Telephone encounter Note* Telephone Encounter - Shantel Arce RPh - 04/10/2024 2:07 PM EST SUBQ products (eg, 20% [Cuvitru, Hizentra, Xembify]) or IM products (eg, 16% [GamaSTAN]) intravenously. It would depend upon insurance coverage and would be done as a retail prescription at designated insurance specialty pharmacy. Elpidio Arce, PharmD, BCOP [facility] Work Phone: [phone] Telephone encounter Note* Telephone Encounter - Enma [...] appt per pt request Enma Hamm RN [facility]11-18-2024 Telephone encounter Note* Telephone Encounter - Enma Hamm RN - 04/10/2024 12:54 PM EST Called to discuss with pt. She was researching online and found SCIG a weekly subq injection to give herself that is less dose, and has less side effects. Pharmacy/[facility]: please advise Enma Hamm RN [facility]11-18-2024 Telephone encounter Note* Telephone Encounter - Vera Najera MD - 04/10/2024 12:26 PM EST Really sorry - I don't recall the home infusion of IVIG - I think it is safer to give it to her in-house as IV so we can monitor infusion reactions. Sorry if I created a misunderstanding. [facility]11-18-2024 History of Present illness Narrative* Gordo Brafield MD - 04/10/2024 10:20 AM EST Subjective [...] Maternal Grandmother Clelaura Heart failure Maternal Grandmother Cleginnyura Rheum arthritis Maternal Grandmother Clesandhya Active Ambulatory Problems Diagnosis Date Noted Autoimmune [...] 03/05/2021 Hair loss 03/05/2021 Hyperlipidemia (CMS/HCC) 05/31/2014 prison 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 02/04/2023 Long-term use of high-risk medication 06/15/2022 Long-term use of Plaquenil 03/05/2021 LPRD (laryngopharyngeal reflux disease) 07/06/2023 Megaloblastic anemia due to vitamin B12 deficiency 03/04/2022 Myalgia 07/06/2023 Obesity, Class III, BMI 40-49.9 (morbid obesity) (CMS/[facility]) 09/07/2022 Obstructive sleep apnea syndrome [...] Shortness of breath 07/13/2023 Paroxysmal supraventricular tachycardia (CMS/[facility]) 07/13/2023 PAC (premature atrial contraction) [...] of removal of cyst 2012 HTN (hypertension) ([facility]) Hx of abnormal cervical Pap [...] AREA NEEDED ergocalciferol (Vitamin D2) 1.25 MG (47412 UT) capsule Take 50,000 Units by mouth [...] referred from the [facility] documented in this encounterCarondelet HealthQzneiiqagu21-18-9055 Telephone encounter Note* Telephone Encounter - Sherrie [...] Triage was involved? Please advise. Sherrie Cortes [facility]11-15-2024 NoteC[facility]11-15-2024 History of Present illness Narrative* Deisy Jaime LSW - 04/07/2024 9:30 AM EST Patient's name appears on the [facility] First Time Treatment List for a non- oncology treatment. No psychosocial assessment is indicated. BILL Rosenberg Goals of Care Advance Directives are not on file SIGNATURE: JUSTICE Rosenberg PATIENT NAME: Ariadna Haley DATE: April 07, 2024 TIME: 9:31 AM PAGER/CONTACT #: documented in this encounterMarietta Memorial Hospital11-14-2024 Evaluation + Plan note* Assessment & Plan [...] her Raynaud's. All her questions were answered. [facility]11-14-2024 Miscellaneous Notes* Assessment & Plan [...] her questions were answered. documented in this encounterTrumbull Memorial Hospital11-14-2024 History of Present illness Narrative* [...] Interpersonal Safety: Unknown (07/15/2023) Received from [facility] Safety & Environment Fear of Current or [...] Assessment and Plan: Problem List Rheumatoid arthritis (CMS-HCC) Relevant Medications ibuprofen (ADVIL,MOTRIN) 200 mg tablet [...] orders for this visit: Systemic lupus erythematosus ([facility]-HCC) - Vas art doppler lwr bilat mult lev/PVR; Future Cold extremities - [facility] [place], [place] - Vas art doppler lwr bilat mult lev/PVR; Future Pain of lower extremity, unspecified laterality - [facility] [place] - Vas art doppler lwr bilat mult lev/PVR; Future Rheumatoid arthritis, involving unspecified site, unspecified whether rheumatoid factor present ([facility]) Current smoker 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 Hayden Arciniega MD, ZIA, RPVI, FSVS, FACS [facility] This note was created with the assistance of a speech recognition program. While intending to generate a timely document that accurately reflects the content of the visit, no guarantee can be provided that every grammatical or spelling mistake has been or will be identified or corrected. Thank you for your understanding. documented in this encounterTrumbull Memorial Hospital11-14-2024 Instructions* Patient Instructions* Hayden Arciniega MD - 04/06/2024 9:40 AM EST Are You Ready To Kick The Habit? Free Tobacco Cessation Resources [facility] Services [facility] Centers provide all employees with free tobacco cessation services that include: Counseling to understand nicotine addiction Education about medications that can help you successfully quit Assistance with developing a plan to quit Call to set up an individual appointment or find out when group classes will be held: [facility]: [phone] [facility]: [phone] [facility]: [phone] [facility]: [phone] Quit Smoking Action Plan and Resources [facility] offers an eight-week, online smoking cessation plan to all [facility] employees, regardless of whether [employer] is your medical insurance provider. Go to [email or web address] and click the Health Risk Assessment and Resources link to get started. In the [employer] menu, click Action Plans instead of Health Risk Assessment to access the Quit Smoking Action Plan. Additional smoking cessation resources are also available to all [facility] employees on the [employer] web page at www.[employer]/quitsmoking. [place] Tobacco Cessation Program If [employer] is your medical insurance provider, there are more free resources available to you, including: No copays or deductibles on local tobacco cessation counseling services to help you quit Prescription assistance for tobacco cessation medications to help you quit For details about the tobacco cessation program available to [employer] members, go to www.[employer] (Search: Tobacco Cessation Program). [place] Tobacco Quit Line 4-207-WKAP-NOW ( ) is a toll-free, telephonic service that helps [place] residents quit smoking and using tobacco. It is staffed by experts who tailor a quit plan for you and provide you with advice. [place] Tobacco Quit Line 8-005-NWYJ-NOW ( ) is a toll-free, telephonic service that helps [place] residents quit smoking and using tobacco. It is staffed by experts who tailor a quit plan for you and provide you with advice. Two weeks of nicotine replacement therapy may be provided at no charge, if needed. Additional Resources These national organizations also offer free information and resources to help you quit tobacco: [place] [employer]--www.cancer.org/healthy/stayawayfromtobacco [place] [employer] Association--www.heart.org (Search: Quit Smoking) Centers for Disease Control and Prevention--www.cdc.gov/tobacco [place] Lung Association--www.lungusa.org documented in this encounterMayo Memorial HospitalThreatTrack Security [id number] Telephone encounter Note* Telephone Encounter - Marky Mike DO - 04/03/2024 9:36 AM EST Changed terbinafine to itraconazole at pt request. [facility] [id number] Miscellaneous Notes* Telephone Encounter - Maryk Mike DO - 04/03/2024 9:36 AM EST Changed terbinafine to itraconazole at pt request. documented in this encounterCarondelet HealthOiindtbsno98-99-2054 Telephone encounter Note* Telephone Encounter - Lynne [...] above. Please process accordingly. Lynne Ni MD [facility]11-10-2024 Miscellaneous Notes* Telephone Encounter - Lynne Ni [...] accordingly. Lynne Ni MD documented in this encounterMarietta [facility] Hospital11-10-2024 History of Present illness Narrative* Marky Mike, - 04/02/2024 1:30 PM EST HPI: Historian [...] with her immunosuppressive therapy. documented in this encounterCarondelet HealthHkkzawwzis97-47-5989 Instructions* Patient Instructions* Vera Najera MD - 04/01/2024 4:28 PM EST Obtain body fluid culture from [facility]. B12 shot today and every 4 weeks. Continue Folic acid. Frequent infections plan IVIG for hypogammaglobulinemia Start when approved. RTC 3 months repeat labs same day. IVIG same day. documented in this encounterMarietta Memorial Hospital11-08-2024 NoteC[facility]11-08-2024 History of Present illness Narrative* Ashly Castillo - 03/31/2024 12:29 PM EST KAYLEENN RECEIVED BY [facility] VIA FAX, COMPLETED, AND PLACED IN PROVIDER MAILBOX FOR SIGNATURE Ashly Castillo Dust Brush Assembler II 03/31/2024 [facility] COMPANY SENDING CMN: JOSH SIGNED AND DATED CMN, FAXED TO DME & CONFIRMATION PAGE RECEIVED: 04/11/2024 documented in this encounterMarietta Memorial Hospital11-07-2024 Telephone encounter Note * Telephone Encounter - Mae Elaine - 03/30/2024 8:01 AM EST Pt is scheduled and instructions were sent thru my chart. [facility]11-07-2024 Miscellaneous Notes* Telephone Encounter - Mae Elaine [...] note were not included. documented in this encounterMarietta Memorial Hospital11-06-2024 Telephone encounter Note * Telephone Encounter - Mae Elaine - 03/29/2024 9:02 AM EST Im for pt- saved time on 04/18 7:45 Also sent mychart msg. dm [facility]11-04-2024 NoteC[facility]11-04-2024 History of Present illness Narrative* Vera Najera MD - 03/27/2024 3:03 PM EST Images from the original note were not included. NAME: Ariadna Haley [facility] NO.: [id number] DATE OF SERVICE: March 27, 2024 ([place]) Some elements in this clinic note that are critical to medical decision making have been carefully reviewed and included from a prior clinic note dated: December 27, 2023 (Liz) Referring Provider: Dr. Manuel Ferris Additional Clinicians involved in Ariadna Haley's care: VIRTUAL VISIT PROGRESS NOTE This is a virtual visit using [employer] Video Call. It required patient- provider interaction for the medical decision making as documented below. I have communicated my name and active licensure. The patient's identity and physical location wereverified at the time of this visit. Either the patient or their legal field support representative has been informed of the risks [...] noted. PLAN: Obtain body fluid culture from [facility]. B12 shot today and every 4 [...] lower lip done 2 days ago at [facility] - awaiting results. B12 helps especially [...] injections. 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 She has been told they [...] CPE Hematology and Oncology Services Provided at: [place], [place] CC: Manuel Ferris MD [address] [facility] [address] documented in this encounterMarietta Memorial Hospital10-31-2024 History of Present illness Narrative* KELVIN Cabrera [...] Ambulatory Problems Diagnosis Date Noted Autoimmune disease ([facility]) 06/01/2023 Fibromyalgia 06/01/2023 Autonomic dysfunction [...] 03/05/2021 Hair loss 03/05/2021 Hyperlipidemia (CMS/HCC) 05/31/2014 prison 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 02/04/2023 Long-term use of high-risk medication 06/15/2022 Long-term use of Plaquenil 03/05/2021 LPRD (laryngopharyngeal reflux disease) 07/06/2023 Megaloblastic anemia due to vitamin B12 deficiency 03/04/2022 Myalgia 07/06/2023 Obesity, Class III, BMI 40-49.9 (morbid obesity) ([facility]) 09/07/2022 Obstructive sleep apnea syndrome [...] behalf of: KELVIN Cabrera documented in this encounterCarondelet [id number] Nurse Note* Stacy Gutiérrez MA - 03/23/2024 10:16 AM EDT Patient Identification confirmed: yes. Injection given and documented on MAR per provider order. Stacy Gutiérrez MA [facility]10-31-2024 Nurse Note* Stacy Gutiérrez MA - 03/23/2024 10:16 AM EDT Patient Identification confirmed: yes. Injection given and documented on MAR per provider order. Stacy Gutiérrez MA documented in this encounterMarietta [facility] Hospital10-28-2024 Telephone encounter Note * Telephone Encounter - Mae Elaine - 03/20/2024 12:37 PM EDT Images from the original note were not included. [facility]10-26-2024 History of Present illness Narrative* Lynne Ni [...] visit. 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, see primary care provider for recurrent flank pain/UTIs, improved with plaquenil 2tabs daily, start photoprotection, see ophthalmology, steroids/prednisone 10mg daily/ [facility]/try weaning off, see derm/?eval recurrent boils, see spine/pain clinic/improved with lyrica/may increase if needed, see derm, start prn heat/ice/otc arthritis creams, low impact weightbearing exercise as tolerated, see neurology/on metoprolol for POTs, avoid aggravating triggers, detention pain recommendations per primary care provider/pain clinic/patient [...] neurology/on metoprolol for POTs, avoid aggravating triggers, detention pain recommendations per primary care provider/pain clinic/patient [...] Due for eye exam. Labs sent to [facility]/completed in 06/2021 (no results faxed to office, [...] pain: yes H/o precedent/frequent infection(s): as above Enthesopathy/Carson's/heel/plantar tenderness: hands random painful/tingling Skin thickening, psoriasis, [...] COVID-19 original vaccine, age 12+ yr, monovalent (InterResolve - PURPLE TOP) 09/28/2020 10/19/2020 05/26/2021 COVID-19 vaccine, age 12+ yr (InterResolve COMIRNATY) 02/23/2023 COVID-19 vaccine, age 12+ yr, bivalent (InterResolve) 02/08/2022 Pneumovax no Flu shot no Tetanus [...] (33);NL cbc, cmp, negative hla b27; Outside [place] 06/2021 low vitamin D 16, vitamin b12-307;high [...] systemic lupus erythematosus with other organ involvement ([facility]) (primary encounter diagnosis) M79.7 Fibromyalgia R76.8 CHRISTIAN positive Q79.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 Elevated sed rate E55.9 Vitamin D deficiency 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 M54.42, M54.41, G89.29 Chronic bilateral low back pain with bilateral sciatica M79.674, M79.675, G89.29 Chronic pain of toes of both feet Z79.899 Long-term use of high-risk medication 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 Start azathioprine [...] touching your toes, sit-ups, using row machine detention pain recommendations per primary care provider/pain clinic [...] video & audio (virtual) or phone or csmk-zh-fady patient care, completing clinical documentation, obtaining and/or [...] Workers' Compensation? No Do you need an science interpreter? No [facility] MYCHART ZOOM MESSAGE Question 03/16/2024 7:44 PM EDT - Filed by Patient Install Zoom I have Zoom installed CC PROMIS CAT V2.0-PHYSICAL FUNCTION-28 DAYS Question 03/16/2024 [...] of Right Forearm or Lower Left Leg. [facility] PROMIS 10 ADULT SHORT FORM V1.0 GLOBAL [...] my health Strongly Agree documented in this encounterMarietta [facility] Hospital10-26-2024 NoteC[facility]10-26-2024 Instructions* Patient Instructions* Lynne Ni MD - [...] (200mg) daily with a meal Please see senior fire protection engineer every 6-12months while on Hydroxychloroquine. azathioprine daily [...] touching your toes, sit-ups, using row machine manager 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 pain recommendations per primary care provider/pain clinic [...] your usual activities immediately. documented in this encounterMarietta Memorial Hospital10-25-2024 Telephone encounter Note * Telephone Encounter - [...] above. Please process accordingly. Lynne Ni MD [facility]10-25-[facility]24 Miscellaneous Notes* Telephone Encounter - Lynne Ni [...] Department VIDEO SPEC EST 03/18/2024 9:00 [facility] Last Ophthalmology Check for Plaquenil (Hydroxychloroquine) [...] Elevated sed rate COMP METABOLIC PANEL [SQCMP] 1/ Every 3 months 06/02/24 06/03/23 02/21/24 Auth. provider: Vera Najera MD Assoc. diagnoses: Megaloblastic anemia due to vitamin B12 deficiency, Elevated sed rate IRON + TIBC [SQIRON] 1 Every 3 months 06/02/24 06/03/23 02/21/24 Auth. provider: Vera Najera MD Assoc. diagnoses: Megaloblastic anemia due to vitamin B12 deficiency, Elevated sed rate FERRITIN BLD [SQFERR] 1/ Every 3 months 06/02/24 06/03/23 02/21/24 Auth. provider: Vera Najera MD Assoc. diagnoses: Megaloblastic anemia due to vitamin B12 deficiency, Elevated sed rate VITAMIN B12 BLOOD [SQB12] / Every 3 months 06/02/24 06/03/23 02/21/24 Auth. provider: Vera Najera MD Assoc. diagnoses: Megaloblastic anemia due to vitamin B12 deficiency, Elevated sed rate FOLATE SERUM [SQSERFOL] / Every 3 months 06/02/24 06/03/23 02/21/24 Auth. [...] Assoc. diagnoses: Pseudomonas infection documented in this encounterMarietta Memorial Hospital10-25-2024 Telephone encounter Note * Telephone Encounter - [...] Department VIDEO SPEC EST 03/18/2024 9:00 [facility] RE[facility] Last Ophthalmology Check for Plaquenil (Hydroxychloroquine) [...] Elevated sed rate SED RATE WESTERGREN [SQWSR] / Every 3 months 06/09/24 06/10/23 02/21/24 Auth. provider: Vrea Najera MD Assoc. diagnoses: Elevated sed rate [...] Alhaji Head DO Assoc. diagnoses: Pseudomonas infection [facility]10-24-[facility] History of Present illness Narrative* Luan Valdivia [...] Ambulatory Problems Diagnosis Date Noted Autoimmune disease ([facility]) 06/01/2023 Fibromyalgia 06/01/2023 Autonomic dysfunction [...] Tobacco use disorder 07/06/2023 Cytomegalovirus infection (HCC) ([facility]) 07/06/2023 Depression, recurrent ([facility]) 06/09/2023 Discoid lupus erythematosus ([facility]) 02/14/2022 Disturbance of skin sensation 07/06/2023 Elevated sed rate 03/05/2021 High total serum IgM 03/05/2021 Enthesopathy of hip region 07/06/2023 Essential hypertension ([facility]) 06/09/2023 Excessive and frequent menstruation with irregular cycle 09/24/2022 Family history of Crohn's disease 03/05/2021 Hair loss 03/05/2021 Hyperlipidemia ([facility]) 05/31/2014 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 02/04/2023 Long-term use of high-risk medication 06/15/2022 Long-term use of Plaquenil 03/05/2021 LPRD (laryngopharyngeal reflux disease) 07/06/2023 Megaloblastic anemia due to vitamin B12 deficiency 03/04/2022 Myalgia 07/06/2023 Obesity, Class III, BMI 40-49.9 (morbid obesity) ([facility]) 09/07/2022 Obstructive sleep apnea syndrome [...] Shortness of breath 07/13/2023 Paroxysmal supraventricular tachycardia ([facility]) 07/13/2023 PAC (premature atrial contraction) [...] Chronic laryngopharyngitis COVID-19 vaccine administered x 2 (Neofect) Difficulty walking Fatigue Fibromyalgia, primary GERD (gastroesophageal reflux disease) History of removal of cyst 2012 tailbone x2 HTN (hypertension) ([facility]) Hx of abnormal cervical Pap smear Hyperlipidemia ([facility]) Insulin resistance Laryngopharyngeal reflux disease [...] nursing note reviewed. Exam conducted with a income tax analyst present. Vitals: Estimated body mass index is [...] Disease with Dr. Kelsey and [facility]. Patient voiced that Dr. Kelsey recommended surgery, but patient feels that maybe excessive. Specialist [facility] suggested monitoring. Patient has had mammogram. Patient does not put anything on her breast.Ruled out Mondor's Breast concerns. Discussed Mancos Oil at night and Vitamin E lotion. Patient voiced that her breast feel brambila and heavier. Discussed growth of breast and proper support. Breastare not hot nor warm to the touch. Patient to obtain bilateral breast ultrasound. Patient to followup with routine annual appointment and as needed. Documented by Alicia Christine LPN on behalf of: Luan Valdivia DO documented in this encounterCarondelet [id number] NoteCleveland Clinic [facility]10-16-2024 [facility] Note Chief Complaint: New patient here to establish care. Ref from Gay Enciso CNP for hypertension. Former [facility] cardiology patient. Had echo a few weeks ago at [facility]. Says her BP is very low [...] past several months. She has seen 2-3 dehydrogenation converter helper in the past. She has undergone a [...] on any stimulants including caffeinated beverages, alcohol, gzog-deb-njbhjff Sudafed etc. If her symptoms of palpitations persist, particular if she has lightheadedness or dizziness, head upright tilt table test may be reasonable to evaluate for possible dysautonomia's I discussed the side effects and risks of long-term steroid therapy and recommended she discuss with her floor attendant weaning off soon as possible Given her morbid obesity, her current symptoms and comorbidities are likely related to excessive weight: I encouraged physical activity, attempts to lose weigh (more content not included)...[facility] 03-07-2024 NoteCleveland Clinic [facility]10-15-2024 History of Present illness Narrative* Lee Friedman - 03/07/2024 8:35 AM EDT CMN RECEIVED BY [employer] VIA FAX, COMPLETED, AND PLACED IN PROVIDER MAILBOX FOR SIGNATURE Lee Friedman Coordinator III 03.07.2024 [employer] SENDING CMN: Josh SIGNED AND DATED CMN, FAXED TO DME & CONFIRMATION PAGE RECEIVED: 03.07.2024 documented in this encounterMarietta Memorial Hospital10-01-2024 Telephone encounter Note * Telephone Encounter - Luda Vargas 02/22/2024 9:54 AM EDT Received a call [...] terrified to drive that far to [place] Further reviewed the reasoning behind the visit needing to be in-person and stated that I would have our relocation manager reach out if she is willingto accept an in-person appt. PT requested that I review with our clinical team if this can be a VV before she schedules. I let her know I will do so and be in touch. She had no further questions at this time. Luda Vargas Genetic Counseling Restaurant Assistant Manager Additional: see Khoa for documentation of scheduling and cancellation with genetics in 2021 [facility]10-01-2024 Miscellaneous Notes* Telephone Encounter - Luda Vargas [...] terrified to drive that far to [place] Further reviewed the reasoning behind the visit needing to be in-person and stated that I would have our relocation manager reach out if she is willingto accept an in-person appt. PT requested that I review with our clinical team if this can be a VV before she schedules. I let her know I will do so and be in touch. She had no further questions at this time. Luda Vargas Genetic Counseling Restaurant Assistant Manager Additional: see Khoa for documentation of scheduling and cancellation with genetics in 2021 documented in this encounterMarietta Memorial Hospital09-30-2024 Nurse Note* Kenzie Shannon MA - 02/21/2024 11:13 AM EDT Patient Identification confirmed: yes. Injection given and documented on MAR per provider order. Kenzie Shannon MA [facility]09-30-2024 Nurse Note* Kenzie Shannon MA - 02/21/2024 11:13 AM EDT Patient Identification confirmed: yes. Injection given and documented on MAR per provider order. Kenzie Shannon MA documented in this encounterMarietta Memorial Hospital09-27-2024 Telephone encounter Note * Telephone Encounter - Sherrie Jimenes - 02/18/2024 1:26 PM EDT Patient is calling the [facility] office requesting Dr. Ni to place a referral to genetics. Please advise. [facility]09-27-2024 Miscellaneous Notes* Telephone Encounter - Sherrie Jimenes - 02/18/2024 1:26 PM EDT Patient is calling the [place] office requesting Dr. Ni to place a referral to genetics. Please advise. documented in this encounterMarietta Memorial Hospital09-24-2024 Telephone encounter Note * Telephone Encounter - Hansa Javed LPN - 02/15/2024 9:49 AM EDT PAP ORDER FAXED TO [facility] WITH DEMOGRAPHICS, OFFICE NOTES WITH CONFIRMATON NOTED. [facility]09-24-2024 Miscellaneous Notes* Telephone Encounter - Hansa Javed LPN - 02/15/2024 9:49 AM EDT PAP ORDER FAXED TO [facility] WITH DEMOGRAPHICS, OFFICE NOTES WITH CONFIRMATON NOTED. documented in this encounterMarietta Memorial Hospital09-23-2024 History of Present illness Narrative* Elton (Resident Care Coordinator)Luda - 02/14/2024 2:32 PM EDT [facility] [...] been reviewed prior to dispensing the medication. Beading Machine Operator Assessment Patient confirmed: Yes Med/dose confirmed: Yes Missed doses: No Estimated days supply on hand: 1 Next cycle/dose due: 02/17/24 Copay amount: 0 Payment confirmed: Yes Delivery method: FedEx Signature required: Waived on patient request Delivery address: [address] [place] [address] [address]. [place] Delivery date: 02/17/24 Questions or concerns for [...] facility-administered medications on file prior to visit. [facility] SPECIALTY CLINICAL ASSESSMENT - INFLAMMATORY CONDITIONS [...] efficacy and/or no longer tolerated. Luda Conde [facility] [phone] documented in this encounterMarietta Memorial Hospital09-23-2024 NoteCleveland Clinic [facility]09-23-2024 History of Present illness Narrative* Elton EpsteinLivescribeLuda Benz - 02/14/2024 2:26 PM EDT Benefits investigation was conducted, indicating that a re-authorization is required for [employer]. PA was initiated and pending review. Plan Name: [employer] CoverMyMeds Balderrama: [id number] Luda Conde [facility] [phone] documented in this encounterMarietta Memorial Hospital09-23-2024 NoteC[facility] Clinic [facility]09-23-2024 NoteC[facility] Clinic [facility]09-23-2024 Instructions* Patient Instructions* Lexus Heck APRN.CNP - 02/14/2024 8:03 AM EDT Images from the original note were not included. Your most recent body mass index (BMI) that we have on record is 43.08 kg/m2. Obstructive sleep apnea (JOSE RAFAEL) worsens with an increase in weight; reduction in weight may improve or resolve your JOES RAFAEL. Ifyou are not already seeking treatment, there are resources available at the [facility] such as a nutrition consultation or referral to weight management programs at our [facility]. Please let us know if we can [...] and out of pocket expenses. DME: Josh [phone] - Remember to clean your mask and equipment regularly, as directed. - Avoid use of ozone automatic grinder operator, SoClean devices, or UV cleaning devices [...] the central scheduling system for the [facility] at [phone]. [facility] now offers direct scheduling for patients to schedule appointments. Virtual visits are also available. Call the office at [phone], option #5 for questions. documented in this encounterMarietta Memorial Hospital09-23-2024 History of Present illness Narrative* Lexus Heck APRN.CNP - 02/14/2024 8:00 AM EDT Images from the original note were not included. [facility] Virtual Visit Follow up/ Established patient visit Date of last visit : 07/27/2022 I have communicated my name and active licensure. The patient's identity and physical location wereverified at the time of this visit. Either the patient or their legal field support representative has been informed of the risks [...] Return Visit in 6 months. Lexus Heck APRN.MRI TECHNICIAN Interval history : Here for follow up for sleep apnea management. SLEEP APNEA Sleep apnea type : JOSE RAFAEL Most Recent Apnea-Hypopnea Index (AHI): 5.3 (HSAT scored 4 %) Treatment : PAP therapy DME: Josh Reese DME fax: [phone] DME ph: [phone] PAP History: Current PAP settin-15 cm H2O. [...] are sorted in reverse-chronological order 04/12/2022 07/23/2022 [place] Sleepiness Scale Score 4 (No clinically significant [...] - Follow up 12 months. Lexus Heck APRN.MRI TECHNICIAN documented in this encounterMarietta Memorial Hospital09-23-2024 NoteC[facility] Clinic [facility]09-18-2024 History of Present illness Narrative* Zita Rogers NP - 02/09/2024 8:00 AM EDT Images from the original note were not included. CHIEF COMPLAINT REASON FOR VISIT : leg pain HPI: Ariadna Haley is a 43 y.o. female who presents for [facility]. She is at home. She [...] Chronic laryngopharyngitis COVID-19 vaccine administered x 2 (Neofect) Difficulty walking Fatigue Fibromyalgia, primary GERD (gastroesophageal [...] Grandmother Clelaura Rheum arthritis Maternal Grandmother Clelaura Depression: Not at risk (12/27/2023) Received from [facility] PHQ-2 PHQ-2 score: 1 REVIEW OF [...] patient, and coordinating care. documented in this encounterCarondelet [id number] NoteHNO ID: [id number] Author: ALHAJI HEAD, DO Service: ? Author Type: Physician Type: Progress Notes Filed: 01/27/2024 16:54 Note Text: VIRTUAL VISIT PROGRESS NOTE This is a virtual visit using [employer] Video Visit. It required patient-provider interaction for the medical decision making as documented below. I have communicated my name and active licensure. The patient's identity and physical location were verified at the time of this visit. Either the patient or their legal field support representative has been informed of the risks [...] of green drainage. She saw her OB/ solutions delivery consultant. This was thought to be secondary to [...] SOB/WHEEZING, and NO DYSPHAG (more content not included)...[facility]09-05-2024 History of Present illness Narrative* Alhaji HeadDO - 01/27/2024 10:10 AM EDT Images from the original note were not included. VIRTUAL VISIT PROGRESS NOTE This is a virtual visit using [employer] Zoom Video Visit. It required patient- provider interaction for the medical decision making as documented below. I have communicated my name and active licensure. The patient's identity and physical location wereverified at the time of this visit. Either the patient or their legal field support representative has been informed of the risks [...] of green drainage. She saw her OB/ solutions delivery consultant. This was thought to be secondary to [...] thrush Alhaji Head DO documented in this encounterMarietta Memorial Hospital09-03-2024 Nurse Note* Margret Cuenca MA - 01/25/2024 11:30 AM EDT Patient Identification confirmed: yes. Injection given and documented on JUL per provider order. Margret Cuenca MA [facility]09-03-2024 Nurse Note* Margret Cuenca MA - 01/25/2024 11:30 AM EDT Patient Identification confirmed: yes. Injection given and documented on JUL per provider order. Margret Cuenca MA documented in this encounterMarietta Memorial Hospital08-27-2024 History of Present illness Narrative* Arianne Mckinley [...] outcomes. Aidee Quintanilla, [place] Clinical Pharmacist, [employer] [facility] ; Pool: P [facility] Pool #: [id number] Beading Machine Operator Assessment Patient confirmed: Yes Med/dose confirmed: Yes Supplies needed: No supplies needed Missed doses: No Estimated days supply on hand: (At least 1 dose) Next cycle/dose due: 01/20/24 Copay amount: 0 Payment confirmed: Yes Delivery method: FedEx Signature required: Waived on patient request Delivery address: [address] [place] [address] Delivery date: 01/21/24 Questions or concerns for [...] facility-administered medications on file prior to visit. [facility] RX SPECIALTY CLINICAL ASSESSMENT - INFLAMMATORY CONDITIONS [...] no longer tolerated. Arianne Mckinley CPhT, Inflammatory/Allergy [facility] [phone] documented in this encounterMarietta Memorial Hospital08-27-2024 NoteCleveland Clinic [facility]08-21-2024 Telephone encounter Note* Telephone Encounter - Krista Fonseca MA - 01/12/2024 10:45 AM EDT Pt has been notified via [employer]. [facility]08-21-2024 Miscellaneous Notes* Telephone Encounter - Krista Fonseca MA - 01/12/2024 10:45 AM EDT Pt has been notified via [employer]. 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 Please process accordingly. Lynne Ni MD [facility]08-21-2024 Telephone encounter Note* Telephone Encounter - Beatriz SanchezCARLIN - 01/12/2024 7:25 AM EDT Images from [...] Lynne Ni MD Assoc. 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 [facility]08-08-2024 Miscellaneous Notes* Telephone Encounter - Krista Fonseca [...] vitamin b12 every month documented in this encounterMarietta Memorial Hospital08-08-2024 Telephone encounter Note * Telephone Encounter - [...] likely reactive, continue vitamin b12 every month [facility]08-05-2024 Telephone encounter Note* Telephone Encounter - Enma Hamm RN - 12/27/2023 12:49 PM EDT Pt informed of MM message and denies any questions, needs or concerns at this time. Appointments verified. Enma Hamm RN [facility]08-05-2024 Miscellaneous Notes* Telephone Encounter - Enma Hamm RN - 12/27/2023 12:49 PM EDT Pt informed of MM message and denies any questions, needs or concerns at this time. Appointments verified. Enma Hamm RN * Telephone Encounter - Juli Narayanan PA-C - 12/27/2023 12:44 PM EDT Please call and inform the patient that I reviewed her TB records and there is no evidence of a blood clot and she does not need to be on blood thinners. Juli Narayanan PA-C documented in this encounterMarietta Memorial Hospital08-05-2024 Telephone encounter Note * Telephone Encounter - Juli Narayanan PA-C - 12/27/2023 12:44 PM EDT Please call and inform the patient that I reviewed her [facility] records and there is no evidence of a blood clot and she does not need to be on blood thinners. Juli Narayanan PA-C [facility] Work Phone: [phone] Nurse Note* Margret Cuenca MA - 12/27/2023 11:44 AM EDT Patient Identification confirmed: yes. Injection given and documented on MAR per provider order. Margret Cuenca MA [facility]08-05-2024 Nurse Note* Margret Cuenca MA - 12/27/2023 11:44 AM EDT Patient Identification confirmed: yes. Injection given and documented on MAR per provider order. Margret Cuenca MA documented in this encounterMarietta Memorial Hospital08-05-2024 History of Present illness Narrative* Juli Narayanan PA-C - 12/27/2023 11:30 AM EDT Images from the original note were not included. NAME: Ariadna Haley [facility] NO.: [id number] DATE OF SERVICE: December 27, 2023 (Liz) [...] labs 1 week before. Request records from [facility] from PE/elevated d-dimer Frequent infections and [...] lower lip done 2 days ago at [facility] - awaiting results. B12 helps especially [...] injections. 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 She has been told they [...] which included preparing to see the patient, vhxj-qx-mtol patient care, completing clinical documentation, obtaining and/or reviewing separately obtained history, performing a medically appropriate examination, counseling and educating the pat ient/family/caregiver, ordering medications, tests, or procedures, communicating with other HCPs (not separately reported), independently interpreting results (not separately reported), communicatingresults to the patient/family/caregiver, and care coordination (not separately reported). Juli Narayanan PA-C Hematology and Oncology Services Provided at: [place], [place] CC: Manuel Ferris MD [address] [place] [address] documented in this encounterMarietta Memorial Hospital08-05-2024 [facility] History of Present illness Narrative* Elton (Resident Care Coordinator)Luda - 12/13/2023 11:44 AM EDT [facility] [...] laboratory parameters, disease state markers and outcomes. Beading Machine Operator Assessment Patient confirmed: Yes Med/dose confirmed: Yes Missed doses: No Estimated days supply on hand: 1 Next cycle/dose due: 12/16/23 Copay amount: 0 Payment confirmed: Yes Delivery method: FedEx Signature required: Waived on patient request Delivery address: [address] [place] [address] Delivery date: 12/17/23 Questions or concerns for [...] facility-administered medications on file prior to visit. [facility]ICAL ASSESSMENT - INFLAMMATORY CONDITIONS V6: Assessment to use: Refill [facility] VACCINE INFORMATION [facility] TREATMENT PLAN INFORMATION [facility] [phone] documented in this encounterMarietta Memorial Hospital07-22-2024 NoteC[facility]07-08-2024 Nurse Note* Stacy Gutiérrez MA - 11/29/2023 1:47 PM EDT Patient Identification confirmed: yes. Injection given and documented on JUL per provider order. Stacy Gutiérrez MA [facility]07-08-2024 Nurse Note* Stacy Gutiérrez MA - 11/29/2023 1:47 PM EDT Patient Identification confirmed: yes. Injection given and documented on JUL per provider order. Stacy Gutiérrez MA documented in this encounterMarietta Memorial Hospital07-05-2024 Telephone encounter Note * Telephone Encounter - Katherin Schneider RN - 11/26/2023 11:34 AM EDT Please sign pended script Maryam Schneider RN [facility]07-05-2024 Miscellaneous Notes* Telephone Encounter - Katherin Schneider RN - 11/26/2023 11:34 AM EDT Please sign pended script Maryam Schneider RN documented in this encounterMarietta Memorial Hospital06-24-2024 History of Present illness Narrative* Aidee Quintanilla [facility] - 11/15/2023 1:00 PM EDT [...] laboratory parameters, disease state markers and outcomes. Beading Machine Operator Assessment Patient confirmed: Yes Med/dose confirmed: Yes Missed doses: No Estimated days supply on hand: 1 Next cycle/dose due: 11/18/23 Copay amount: 0 Payment confirmed: Yes Delivery method: FedEx Signature required: Waived on patient request Delivery address: [address] [place] [address] Delivery date: 11/17/23 Questions or concerns for [...] facility-administered medications on file prior to visit. [facility] Visit Assessment - Inflammatory [...] efficacy: Yes Roland CamarilloD Clinical Pharmacist, [employer] [facility] ; Pool: P [facility] Pool #: [id number] documented in this encounterMarietta Memorial Hospital06-24-2024 NoteC[facility]06-20-2024 Telephone encounter Note* Telephone Encounter - Lynne [...] above. Please process accordingly. Lynne Ni MD [facility]06-20-2024 Miscellaneous Notes* Telephone Encounter - Lynne Ni [...] High total serum IgM documented in this encounterMarietta Memorial Hospital06-20-2024 Telephone encounter Note * Telephone Encounter - [...] High total serum IgM VITAMIN B12 [SQB12] 07/04/1609/08/24 09/09/23 Auth. provider: Vera Najera MD Assoc. [...] vitamin B12 deficiency, High total serum IgM [facility]06-06-2024 Telephone encounter Note* Telephone Encounter - Karina Morales RN - 10/28/2023 1:33 PM EDT Pt read HapBoo message. [facility]06-06-2024 Miscellaneous Notes* Telephone Encounter - Karina Morales RN - 10/28/2023 1:33 PM EDT Pt read HapBoo message. * Telephone Encounter - Lynne Ni [...] soon! Warm regards, :) documented in this encounterMarietta Memorial Hospital06-06-2024 Telephone encounter Note * Telephone Encounter - [...] you feel better soon! Warm regards, :) [facility]06-05-2024 Nurse Note* Margret Cuenca MA - 10/27/2023 2:43 PM EDT Patient Identification confirmed: yes. Injection given and documented on JUL per provider order. Margret Cuenca MA [facility]06-05-2024 Nurse Note* Margret Cuenca MA - 10/27/2023 2:43 PM EDT Patient Identification confirmed: yes. Injection given and documented on JUL per provider order. Margret Cuenca MA documented in this encounterMarietta Memorial Hospital05-21-2024 NoteC[facility]05-14-2024 History of Present illness Narrative* Lynne Ni [...] visit. Either the patient or their legal field support representative has been informed of the risks [...] measures, may consider osteoporosis treatment if on manager 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 steroids/abnormal bmd, take vitamin D script if [...] neurology/on metoprolol for POTs, avoid aggravating triggers, manager 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 pain recommendations per primary care provider/pain clinic/patient [...] neurology/on metoprolol for POTs, avoid aggravating triggers, detention pain recommendations per primary care provider/pain clinic/patient [...] Due for eye exam. Labs sent to [facility]/completed in 06/2021 (no results faxed to office, but patient pulled up results on her phone). Chronic current pain in neck, flank area, mid back, knees, legs, arms, all over pain. Better with lyrica 75mg 3times a day. Reports pain 4-12/31. Couple hrs AM stiffness. COVID vaccine Neofect 09/28/20, 10/19/20, 05/26/21. Feels safe at home. [...] COVID-19 original vaccine, age 12+ yr, monovalent (InterResolve - PURPLE TOP) 09/28/2020 10/19/2020 05/26/2021 COVID-19 vaccine, age 12+ yr, 2022- season (InterResolve) 02/23/2023 COVID-19 vaccine, age 12+ yr, bivalent (InterResolve) 02/08/2022 Pneumovax no Flu shot no Tetanus [...] (33);NL cbc, cmp, negative hla b27; Outside [place] 06/2021 low vitamin D 16, vitamin b12-307;high [...] measures, may consider osteoporosis treatment if on detention steroids/abnormal bmd, take vitamin D script once [...] neurology/on metoprolol for POTs, avoid aggravating triggers, detention pain recommendations per primary care provider/pain clinic/patient [...] (200mg) daily with a meal Please see senior fire protection engineer every 6-12months while on Hydroxychloroquine. Start azathioprine [...] touching your toes, sit-ups, using row machine manager 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 pain recommendations per primary care provider/pain clinic [...] video & audio (virtual) or phone or qkgz-fy-ftma patient care, completing clinical documentation, obtaining and/or [...] Workers' Compensation? No Do you need an science interpreter? No [facility] MYCHART ZOOM MESSAGE Question 2023 11:04 PM [...] 3 (WITHIN +/- 5) documented in this encounterMarietta Memorial Hospital05-09-2024 Nurse Note* Renea Schneider MA - 09/30/2023 10:53 AM EDT Patient Identification confirmed: yes. Injection given and documented on JUL per provider order. Renea Schneider MA [facility]05-01-2024 Evaluation note* Author [facility] Authored September 22, 2023 2:55pm 42-year-old female [...] switch omeprazole to pantoprazole and monitor symptoms [facility] Work Phone: [phone]) 970-230104-18-2024 Instructions* Patient Instructions* Vera Najera MD - 09/09/2023 4:47 PM EDT Follow up in 13 Weeks - labs 1 week before. B12 shot every 4 weeks. Continue Folic acid. documented in this encounterMarietta Memorial Hospital04-18-2024 History of Present illness Narrative* Vera Najera MD - 09/09/2023 4:30 PM EDT NAME: Ariadna Haley [facility] NO.: [id number] DATE OF SERVICE: September 09, 2023 (ivancarlos) Some elements in this clinic note that are critical to medical decision making have been carefully reviewed and included from a prior clinic note dated: June 10, 2023 (Marquis) Referring Provider: Dr. Maneul Ferris Additional Clinicians involved in Ariadna Haley's care: VIRTUAL VISIT PROGRESS NOTE This is a virtual visit using [employer]k Fans Supervisor Welding Equipment Repairer Video Call. It required patient- provider interaction for the medical decision making as documented below. I have communicated my name and active licensure. The patient's identity and physical location wereverified at the time of this visit. Either the patient or their legal field support representative has been informed of the risks [...] lower lip done 2 days ago at [facility] - awaiting results. B12 helps especially [...] injections. 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 She has been told they [...] CPE Hematology and Oncology Services Provided at: [place], [place] CC: Manuel Ferris MD [address] [address] documented in this encounterMarietta Memorial Hospital04-15-2024 Miscellaneous Notes* Telephone Encounter - Maynor Bryson MA - 09/06/2023 7:21 AM EDT patient has viewed the HapBoo message per [employer]. * Telephone Encounter - Lynne Ni MD - 09/04/2023 6:30 PM EDT Please Call patient if Retrevot note not read to review results/released to [...] accordingly. Lynne Ni MD documented in this [facility]04-09-2024 Nurse Note* Margret Cuenca MA - 08/31/2023 10:35 AM EDT Patient Identification confirmed: yes. Injection given and documented on JUL per provider order. Margret Cuenca MA documented in this [facility]04-01-2024 Nurse Note* Renea Schneider MA - 09/30/2023 10:53 AM EDT Patient Identification confirmed: yes. Injection given and documented on JUL per provider order. Renea Schneider MA documented in this [facility]03-14-2024 Nurse Note* Margret Cuenca - 08/05/2023 11:16 AM EDT Patient Identification confirmed: yes. Injection given and documented on JUL per provider order. Margret Cuenca documented in this [facility]02-20-2024 Nurse Note* Margret Cuenca - 07/13/2023 12:01 PM EST Patient Identification confirmed: yes. Injection given and documented on JUL per provider order. Margret Cuenca documented in this [facility]02-20-2024 History of Present illness Narrative* Lois [...] and is being cared for at the [facility] utilizing steroids, Plaquenil and injectable medic ation(Benlystal). The patient record indicating having had cardiac catheterization in [place] 3 years ago which was normal. I have the report available for my review. [facility] [...] lupus being treated by rheumatology at the [facility] on steroids, Plaquenil and monoclonal antibody [...] , Rfl: ergocalciferol (Vitamin D-2) 1.25 MG (99212 UT) capsule, Take 1 capsule (50,000 Units) [...] discussion and plan. [facility]St[facility] Work Phone: 1(595) 950-583802-20-2024 Instructions* Patient Instructions* Lila Tejeda LPN - [...] of your visit. documented in [facility]St. [facility] Work Phone: 1(936) 112-647702-13-2024 History of Present illness Narrative* Kade Richardson [...] , Rfl: ergocalciferol (Vitamin D2) 1.25 MG (18243 UT) capsule, Take 50,000 Units by mouth [...] Chronic laryngopharyngitis COVID-19 vaccine administered x 2 (Neofect) History of removal of cyst 2013 tailbone [...] reflexes: Stu's absent. Ankle clonus absent. Coordination Pzrnmq-zn-srfa, rapid alternating movements and vhos-bd-sjub normal bilaterally without dysmetria. Gait Normal casual, toe, heel and tandem gait. Romberg is absent. Assessment/Plan Diagnoses and all orders for this visit: Autoimmune disease ([facility]) - Protein electrophoresis, serum; Future [...] Lyrica 100 mg TID. She is on oattletodn22 mg once daily. Increase prednisone 10 mg BID for 10 days. documented in this encounterCarondelet [id number] History of Present illness Narrative* Michelle Jasmine, ANIMATION DIRECTOR-MRI TECHNICIAN - 06/09/2023 8:30 AM EST Ariadna Haley is a 42 y.o. female that presents to the office today for new patient evaluation asself referral for palpitations and elevated heart rates. She has a PMH of HTN, HLD, tachycardia, anemia, JOSE RAFAEL with CPAP compliance, lupus, autonomic dysfunction, arthritis, chronic back pain. She has undergone cardiac workup in the past in [place] as noted below. She also states that she follows withNeurology for possible POTS syndrome. Admits to daily tobacco use, 1 pack of cigarettes per day. Denies vaping, ETOH, recreational drugs. Admits to drinking approximately 1 pot of coffee per day. Denies daily exercise. 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 Family history negative [...] , Rfl: ergocalciferol (Vitamin D-2) 1.25 MG (64399 UT) capsule, Take 1 capsule (50,000 Units) [...] Depression, recurrent ([facility]) Discoid lupus erythematosus Chronic bilateral low back pain with bilateral sciatica Hyperlipidemia Obesity, Class III, BMI 40-49.9 (morbid obesity) ([facility]) Obstructive sleep apnea syndrome [...] to prepare this document. documented in this [facility] Work Phone: [phone]) 974-973101-03-2024 Instructions* Patient Instructions* Christie Phan MD - 05/26/2023 5:43 PM EST Images from the original note were not included. https://MaulSoup/tofu-bolognese/ https://nutritionstudies.org/mje-tt-eqtfeqmog-xzaascxd-ts-qvyhn-s-emmdb-bsnz-randee hv-ymktp-stiijlmvh/ https://www.CO-Value/blog/plantbasedkids https://Crelow/ghcnf-kbgqc-lnxk-for-kids/ https://SpePharm/lfp-oz-kfxkycifef-kmfc-agos-fj-k-wmewu-mqgpr-diet/ WHAT TO EAT? Breakfast: Overnight Oats Base ingredients: 1/3 cup rolled oats, 1/3 cup plain almond milk, 1tsp kyle seeds. Optional add-ins: cinnamon, flax seeds, honey or maple syrup, nut butter, chopped nuts. Toppings: Any fresh fruit chopped. Mix together and place in refrigerator. Can make 5 at a time for the whole week. Homemade fresh oatmeal. Can also make in the crockpot. Azerbaijani muffin/almond butter topped with fresh berries Azerbaijani muffin, cooked egg/egg white, tomato, thin slice armenian cheese Fresh berries, hard boiled egg, whole wheat toast Plain yogurt topped with berries, unsalted nuts, drizzle of honey Whole grain toast/Azerbaijani muffin topped with mashed avocado and tomatoes Lunch: Dinner leftovers packed in Tupperware, side of fruit Salad mixture topped with a protein (chick breast/tuna/hard boiled egg/beans), dressing and side offruit Dinner - Refer to plate communications planner pictures to help select foods and portion ratios of protein, vegetables/starches. Keep it simple and rotate your favorite meals. Sheet nix meals Soups Grilled protein/vegetables/side of starch (plate communications planner picture) Stir can with protein, mixed vegetables, and riced cauliflower or portion controlled whole grain rice. Make your own bowls - Arabic/Moldovan/ theme [place] with Zoodles (spiralized vegetable noodles). Roasted vegetable wraps Alter traditional recipes to reflect HIGH QUALITY ingredients in the right QUANTITIES. Snacks - portion controlled: Raw veggies (can have with hummus, mashed avocado, salsa). Unsalted nuts Fruit (1 serving). (optional side of peanut butter) Air pop popcorn [place] and low fat armenian cheese rolled up String cheese Protein balls (mix rolled oats, nut butter, flax seeds, dash almond milk). Beverages: Water Coffee, Hot tea Unsweetened ice tea EATING OUT: Research menu online, include nutritional information. Make your order decision before getting to restaurant. Stick to recommended portions (plate communications planner picture). Ask for substitutions or modifications. [...] baked potato, sprouted grain bread, chick peas https://www.Digital Theatre.com/article/4355203/oszjxhoalgvjj-ucet-rtda-for-beginners / https://www.Digital Theatre.com/category/4274/lcfzmkzlsmien-cjgv-vergnn/ https://www.Digital Theatre.com/category/4300/aarhahbihybqo-xcue-poiv-plans/ My current favorite cookbooks are documented in this encounterMarietta [facility] Hospital01-03-2024 History of Present illness Narrative* Christie Phan MD - 05/26/2023 5:00 PM EST Images from the original note were not included. [facility] Follow-Up Appointment [...] refer to nutrition to work towards a [facility] diet Plan Diagnoses and all orders [...] the date of the service which included dykb-lm-hhru patient care, completing clinical documentation, performing a medically appropriate examination, counseling and educating the patient/family/caregiver, and ordering medications, tests, or procedures. Christie Phan MD, MA, [facility] Lifestyle Medicine Specialist documented in this encounterMarietta Memorial Hospital12-04-2023 Miscellaneous Notes* Telephone Encounter - Renate Lawrence MA - 04/26/2023 5:26 PM EST Medication pending with new pharmacy information. documented in this encounterMarietta Memorial Hospital12-04-2023 History of Present illness Narrative* Christie Phan MD - 04/26/2023 4:15 PM EST Images from the original note were not included. [facility] Virtual Follow-Up [...] the date of the service which included qqyb-tm-mmyw patient care, completing clinical documentation, performing a medically appropriate examination, counseling and educating the patient/family/caregiver, and ordering medications, tests, or procedures. I have communicated my name and active licensure. The patient's identity and physical location wereverified at the time of this visit. Either the patient or their legal field support representative has been informed of the risks and benefits of -- and alternatives to -- treatment through a remote evaluation andconsents to proceed with the evaluation remotely. Christie Phan MD, [place], [facility] Lifestyle Medicine Specialist documented in this encounterMarietta Memorial Hospital12-04-2023 Nurse Note* Renate Lawrence MA - 04/26/2023 2:46 PM EST Spoke to Ariadna Haley, confirmed patient is registered on [employer]over.com and is prepared for their appointment. Confirmed the patient has updated medications, allergies, and questionnaires via Rover.com. Informed patient if there is an issue with the connection, provider will send the patient a secure link. If provider is running late, patient should remain connected to the visit. Patient verbalized understanding. documented in this [facility]11-30-2023 Miscellaneous Notes* Telephone Encounter - Enma Hamm RN - 04/22/2023 3:48 PM EST Pt called for Iron results; possible need for transfusion. Pt aware no need for iron infusion at this time. Enma Hamm, RN documented in this [facility]11-24-2023 History of Present illness Narrative* Kenzie Shannon - 04/16/2023 10:55 AM EST Patient Identification confirmed: yes. Injection given and documented on JUL per provider order. Kenzie Shannon documented in this [facility]10-27-2023 History of Present illness Narrative* Kenzie Shannon - 03/19/2023 11:06 AM EDT Patient Identification confirmed: yes. Injection given and documented on JUL per provider order. Kenzie Shannon documented in this [facility]10-24-2023 History of Present illness Narrative* Marija Ziegler - 03/16/2023 10:13 AM EDT CMN RECEIVED BY [employer] VIA FAX, COMPLETED, AND PLACED IN PROVIDER MAILBOX FOR SIGNATURE On 2022 By Marija Ziegler Dust Brush Assembler II. [employer] SENDING CMN: JOSH SIGNED AND DATED CMN, FAXED TO DME & CONFIRMATION PAGE RECEIVED: 03.24.23 documented in this [facility]10-19-2023 History of Present illness Narrative* Beatriz [...] LPN In Department: RHEUMATOLOGY documented in this encounterMarietta Memorial Hospital10-18-2023 Miscellaneous Notes* Telephone Encounter - Christie Phan MD - 03/10/2023 2:18 PM EDT Spoke with patient. We stopped her trulicity because of side effects. She only took the cymbalta for a week. She will restart and we will see how she is doing in 2 months. Have also ordered insulin labs to check for insulin resistance. documented in this encounterMarietta Memorial Hospital10-09-2023 Miscellaneous Notes* Telephone Encounter - Lynne Ni MD - 03/01/2023 3:27 PM EDT For chart: Eye exam 02/26/23 no ocular complication related to medication. * Telephone Encounter - Beatriz Sanchez LPN - 03/01/2023 2:38 PM EDT [facility] Placed on your desk for review. documented in this encounterMarietta Memorial Hospital09-29-2023 Nurse Note* Radha Kebede MA - 02/19/2023 11:48 AM EDT Patient Identification confirmed: yes. Injection given and documented on JUL per provider order. Radha Schofield MA documented in this encounterMarietta Memorial Hospital09-29-2023 Instructions* Patient Instructions* Vera Najera MD - 02/19/2023 11:40 AM EDT B12 shot today and every 4 weeks. Continue Folic acid. Follow up in 8 Weeks - labs 1 week before. documented in this encounterMarietta Memorial Hospital09-29-2023 History of Present illness Narrative* Vera Najera MD - 02/19/2023 11:32 AM EDT Images from the original note were not included. AMBULATORY TELEPHONE VISIT Ariadna Haley has consented to this telephone encounter. Persons Present: Patient and myself Chief Complaint/Reason: Anemia; To review recent blood work. HPI: Total Time Spent: 21 minutes Rebekah Rojas APRN.MRI TECHNICIAN NAME: Ariadna Haley [facility] NO[facility] [id number] DATE OF SERVICE: February 19, 2023 (Marquis) [...] lower lip done 2 days ago at [facility] - awaiting results. B12 helps especially [...] injections. 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 She has been told they [...] which included preparing to see the patient, skxc-xz-zcwn patient care, completing clinical documentation, performing a medically appropriate examination, counseling and educating the patient/family/caregiver, ordering medications, tests, or p rocedures, and independently interpreting results (not separately reported). Vera Najera MD, CPE Hematology and Oncology Services Provided at: [place], [place] CC: Manuel Ferris MD [address] [place] [address] documented in this encounterMarietta Memorial Hospital09-26-2023 Miscellaneous Notes* Telephone Encounter - Lynne [...] Department RAYRAY INJECTION TEACHING 03/11/2023 7:30 AM [facility] NICKIE VIDEO SPEC EST 08/12/2023 9:00 AM [facility] NICKIE Last Ophthalmology Check for [...] diagnoses: Vitamin D deficiency documented in this encounterMarietta Memorial Hospital09-18-2023 Miscellaneous Notes* Telephone Encounter - Mirela Carlos - 02/08/2023 11:12 AM EDT Spoke with patient Will get labs done when she does labs in Dec for Dre/Onc Mailed orders for DXA to pt so she can go to [facility] Pre cert Benlyst Scheduled Teaching visit [...] accordingly. Lynne Ni MD documented in this encounterMarietta Memorial Hospital09-14-2023 History of Present illness Narrative* Carlene Rendon - 02/04/2023 9:31 AM EDT [facility] received prescription(s) for Benlysta from Dr. Ni. Benefits investigation was conducted, indicating that a prior authorization is required by patients plan with [facility]. Encounter will be updated once prior authorization has been submitted by [facility]. Carlene Rendon CPhT [facility], Inflammatory P: [phone] F: [phone] documented in this encounterMarietta Memorial Hospital09-14-2023 History of Present illness Narrative* Lynne [...] visit. Either the patient or their legal field support representative has been informed of the risks [...] neurology/on metoprolol for POTs, avoid aggravating triggers, detention pain recommendations per primary care provider/pain clinic/patient [...] Due for eye exam. Labs sent [place] [facility]/completed in 06/2021 (no results faxed to office, but patient pulled up results on her phone). Chronic current pain in neck, flank area, mid back, knees, legs, arms, all over pain. Better with lyrica 75mg 3times a day. Reports pain 4-8/10. Couple hrs AM stiffness. COVID vaccine Neofect 09/28/20, 10/19/20, 05/26/21. Feels safe at home. [...] pain: yes H/o precedent/frequent infection(s): as above Enthesopathy/Carson's/heel/plantar tenderness: hands random painful/tingling Skin thickening, psoriasis, [...] COVID-19 original vaccine, age 12+ yr, monovalent (InterResolve - PURPLE TOP) 09/28/2020 10/19/2020 05/26/2021 COVID-19 vaccine, age 12+ yr, bivalent (InterResolve) 02/08/2022 Pneumovax no Flu shot no Tetanus [...] (33);NL cbc, cmp, negative hla b27; Outside [place] 06/2021 low vitamin D 16, vitamin b12-307;high [...] rate M25.531, M25.532 Bilateral wrist pain Z79.52 prison 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 M81.8, T38.0X5A [...] measures, may consider osteoporosis treatment if on detention steroids/abnormal bmd, take vitamin D script if [...] neurology/on metoprolol for POTs, avoid aggravating triggers, manager 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 pain recommendations per primary care provider/pain clinic/patient [...] (200mg) daily with a meal Please see senior fire protection engineer every 6-12months while on Hydroxychloroquine. Start azathioprine [...] touching your toes, sit-ups, using row machine manager 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 pain recommendations per primary care provider/pain clinic [...] video & audio (virtual) or phone or qfqo-rb-ykxo patient care, completing clinical documentation, obtaining and/or [...] cc Gay Enciso CNP;Dr.Douglas Sai Ferris MD [facility] INTAKE QUESTIONNAIRE Question [...] Workers' Compensation? No Do you need an science interpreter? No [facility] MYCHART ZOOM MESSAGE Question 02/02/2023 10:32 PM [...] < or = 5) documented in this encounterMarietta Memorial Hospital09-14-2023 Instructions* Patient Instructions* Lynne Ni MD [...] (200mg) daily with a meal Please see senior fire protection engineer every 6-12months while on Hydroxychloroquine. azathioprine daily [...] touching your toes, sit-ups, using row machine manager 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 pain recommendations per primary care provider/pain clinic [...] your usual activities immediately. documented in this encounterMarietta Memorial Hospital09-05-2023 Miscellaneous Notes* Telephone Encounter - Maynor Bryson MA - 01/26/2023 7:46 AM EDT patient has viewed the [employer] message per [employer]. * Telephone Encounter - Lynne Ni MD - 01/24/2023 8:04 PM EDT Please Call patient if [email or web address] note not read to review results/released to My Chart if tests completed at [facility]: mildly high normal wbc- will monitor. [...] accordingly. Lynne Ni MD documented in this encounterMarietta Memorial Hospital09-01-2023 Nurse Note* Radha Kebede MA - 01/22/2023 12:17 PM EDT Patient Identification confirmed: yes. Injection given and documented on JUL per provider order. Radha Schofield MA documented in this encounterMarietta Memorial Hospital08-22-2023 Miscellaneous Notes* Telephone Encounter - Christie [...] the above prescription(s) to electronically send to [facility] pharmacy. Milagro Mendiola MA documented in this encounterMarietta Memorial Hospital08-11-2023 History of Present illness Narrative* Misty Nelson MD - 01/01/2023 10:51 AM EDT VIRTUAL VISIT PROGRESS NOTE This is a virtual visit using [email or web address] video visit. It required patient-provider interaction for themedical decision making as documented below. I have communicated my name and active licensure. The patient's identity and physical location wereverified at the time of this visit. Either the patient or their legal field support representative has been informed of the risks [...] otitis or sinusitis No pneumonia She sees floor attendant and was diagnosed with lupus She is on Plaquenil, azathioprine Prednisone 10mg once daily for the past year; every few months she gets treated with higher doses of prednisone for flares of her symptoms The medications seem to help the body aches She saw the head kiln operator Treated with B12 and folic acid [...] visit. Misty Nelson MD documented in this encounterMarietta Memorial Hospital07-28-2023 Miscellaneous Notes* Telephone Encounter - Rebekah Rojas APRN.CNP - 12/18/2022 10:48 AM EDT Spoke with patient this morning, 12/18/2022. Rebekah Rojas APRN.CNP * Telephone Encounter - Lidia Argueta RN - 12/18/2022 9:31 AM EDT Pt called collections specialist service last evening stating she was suppose to have a phone call with Rebekah at 330 and never received a call. Pt is still waiting (536 pm 12/17/22). Please advise Lidia Argueta RN documented in this encounterMarietta Memorial Hospital07-28-2023 History of Present illness Narrative* Rebekah Rojas APRN.CNP - 12/18/2022 9:07 AM EDT Images from the original note were not included. AMBULATORY TELEPHONE VISIT Ariadna Melissa De Pazlazarofrancisco javier has consented to this telephone encounter. [...] Total Time Spent: 21 minutes Rebekah Rojas APRN.MRI TECHNICIAN NAME: Ariadna Haley CLINIC NO.: [id number] DATE OF SERVICE: October 22, 2022 (Marquis) Some elements in this clinic note that are critical to medical decision making have been carefully reviewed and included from a prior clinic note dated: August 27, 2022 (Bob) Referring Provider: Dr. Manuel Ferris Additional Clinicians involved in Ariadna Melissa Tera's care: DIAGNOSIS: Multiple symptoms ASSESSMENT: 42 [...] lower lip done 2 days ago at [facility] - awaiting results. B12 helps especially [...] injections. 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 She has been told they [...] which included preparing to see the patient, gwcn-md-ujbh patient care, completing clinical documentation, performing a medically appropriate examination, counseling and educating the patient/family/caregiver, ordering medications, tests, or p rocedures, and independently interpreting results (not separately reported). Vera Najera MD, CPE Hematology and Oncology Services Provided at: [place], [place] CC: Manuel Ferris MD [address] [place] [address] documented in this encounterMarietta Memorial Hospital07-26-2023 Miscellaneous Notes* Telephone Encounter - Pamella Bettencourt RN - 12/16/2022 1:14 PM EDT Pt notified and verbalizes understanding. Clerical: Please change tomorrow's appointment to a phone visit at the end of Erbekah's day. Preferred number is [phone]. In addition, pt will be in next [...] schedule? Pamella Bettencourt RN documented in this encounterMarietta Memorial Hospital07-23-2023 Miscellaneous Notes* Telephone Encounter - Vera [...] advise Enma Hamm, RN documented in this encounterMarietta Memorial Hospital07-04-2023 Miscellaneous Notes* Telephone Encounter - Lynne [...] accordingly. Lynne Ni MD documented in this encounterMarietta Memorial Hospital06-29-2023 Nurse Note* Margret Cuenca - 11/19/2022 11:01 AM EDT Patient Identification confirmed: yes. Injection given and documented on JUL per provider order. Margret Cuenca documented in this encounterMarietta Memorial Hospital06-01-2023 Nurse Note* Stacy Gutiérrez Ma - 10/22/2022 11:50 AM EDT Patient Identification confirmed: yes. Injection given and documented on JUL per provider order. Stacy Gutiérrez Ma documented in this [facility]06-01-2023 Instructions* Patient Instructions* Vera Njaera MD - 10/22/2022 11:43 AM EDT B12 Shot today and every 4 weeks. Continue Folic acid. Follow up in 8 Weeks - labs 1 week before. documented in this encounterMarietta Memorial Hospital06-01-2023 History of Present illness Narrative* Vera Najera MD - 10/22/2022 11:35 AM EDT Images from the original note were not included. NAME: Jose Carlosfrancisco javierAriadna [facility] NO.: [id number] DATE OF SERVICE: October 22, 2022 (Marquis) Some elements in this clinic note that are critical to medical decision making have been carefully reviewed and included from a prior clinic note dated: August 27, 2022 (Bob) Referring Provider: Dr. Manuel Ferris Additional Clinicians involved in Ariadna Melissa Haley's care: DIAGNOSIS: Multiple symptoms ASSESSMENT: [...] lower lip done 2 days ago at [facility] - awaiting results. B12 helps especially [...] injections. 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 She has been told they [...] which included preparing to see the patient, bmwa-ab-ygpx patient care, completing clinical documentation, performing a medically appropriate examination, counseling and educating the patient/family/caregiver, ordering medications, tests, or p rocedures, and independently interpreting results (not separately reported). Vera Najera MD, CPE Hematology and Oncology Services Provided at: [place], [place] CC: Manuel Ferris MD [address] [place] [address] documented in this encounterMarietta Memorial Hospital05-04-2023 Nurse Note* Stacy Gutiérrez Ma - 09/24/2022 10:22 AM EDT Patient Identification confirmed: yes. Injection given and documented on JUL per provider order. Stacy Gutiérrez Ma documented in this encounterMarietta Memorial Hospital04-18-2023 Miscellaneous Notes* Telephone Encounter - Stacy Hernandez - 09/08/2022 2:27 PM EDT Pharmacy-Reviewed Medication History Patient Name:.Ariadna Haley : 1980 Patient Contact Attempt: First attempt Adherence Packing Program Accepted? No, patient does not wish to participate. Patient is not eligible for adherence packaging because PCP is not within [facility]. Patient wishes to continue at [facility] since medication bottles will look the same and then she can pick-up the medications when she needs them. Stacy Hernandez September 08, 2022 2:28 PM [facility] [phone] documented in this encounterMarietta Memorial Hospital04-17-2023 History of Present illness Narrative* Christie Phan MD - 09/07/2022 2:00 PM EDT Images from the original note were not included. [facility] Virtual Follow-Up Appointment Assessment Aridana Haley is a 41 year old female [...] which included preparing to see the patient, tygb-lk-ywab patient care, completing clinical documentation, performing a medically appropriate examination, counseling and educating the patient/family/caregiver, ordering medications, tests, or p rocedures, and communicating with other HCPs (not separately reported). I have communicated my name and active licensure. The patient's identity and physical location wereverified at the time of this visit. Either the patient or their legal field support representative has been informed of the risks and benefits of -- and alternatives to -- treatment through a remote evaluation andconsents to proceed with the evaluation remotely. Christie Phan MD, MA, [facility] Lifestyle Medicine Specialist documented in this encounterMarietta Memorial Hospital04-17-2023 Nurse Note* Milagro Mendiola MA - 09/07/2022 2:00 PM EDT Called pt to do intake for video visit pt unavailable lft vm msg sent my chart. Milagro Mendiola MA documented in this encounterMarietta Memorial Hospital04-10-2023 Miscellaneous Notes* Telephone Encounter - Shantel Higgins MA - 08/31/2022 8:38 AM EDT called [facility] pharmacy - pharmacy had 1 refill remaining no action needed from our office documented in this encounterMarietta Memorial Hospital04-06-2023 Nurse Note* Stacy Gutiérrez Ma - 08/27/2022 10:31 AM EDT Patient Identification confirmed: yes. Injection given and documented on JUL per provider order. Stacy Gutiérrez Ma documented in this encounterMarietta Memorial Hospital04-06-2023 History of Present illness Narrative* Rebekah Rojas APRN.MRI TECHNICIAN - 08/27/2022 10:00 AM EDT Images from the original note were not included. NAME: Ariadna Haley CLINIC NO.: [id number] DATE OF SERVICE: August 27, 2022 (Bob) [...] injections. 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 She has been told they [...] Father stomach other (Crohn's [Other]) Mother Rebekah Rojas, ANIMATION DIRECTOR.[facility] Hematology and Oncology Services Provided at: [place], [place] CC: Manuel Ferris MD [address] [address] I spent a total of 30 minutes on the date of the service which included preparing to see the patient, dozh-ca-lzxy patient care, completing clinical documentation, obtaining and/or reviewing separately obtained history, performing a medically appropriate examination, counseling and educating the pat ient/family/caregiver, ordering medications, tests, or procedures, independently interpreting results (not separately reported), and communicating results to the patient/family/caregiver. documented in this encounterMarietta Memorial Hospital03-29-2023 Miscellaneous Notes* Telephone Encounter - Freda [...] low vitamin b12- take over the counter 8599-1662 mcg daily. Improved/ normal rest of rheum [...] accordingly. Lynne Ni MD documented in this encounterMarietta Memorial Hospital03-28-2023 Miscellaneous Notes* Telephone Encounter - Beatriz [...] accordingly. Lynne Ni MD documented in this encounterMarietta Memorial Hospital03-20-2023 Miscellaneous Notes* Telephone Encounter - Christie Phan MD - 08/10/2022 9:46 AM EDT [facility] requesting refill, patient never started according to the chart and I have not seen her in follow-up. * Telephone Encounter - Jami Everett Cma - 08/10/2022 7:40 AM EDT [facility] Pharmacy request for the following refill(s): Requested Prescriptions Pending Prescriptions Disp Refills DULoxetine (CYMBALTA) 20 mg capsule [Pharmacy Med Name: DULOXETINE HCL DR 20 MG CAP] 30 capsule 2 Sig: TAKE 1 CAPSULE BY MOUTH ONCE DAILY Please review and advise. Jami Everett Cma documented in this encounterMarietta Memorial Hospital03-06-2023 Instructions* Patient Instructions* Lexus Heck APRN.MRI TECHNICIAN - 07/27/2022 9:12 PM EST Images from the original note were not included. Your most recent body mass index (BMI) that we have on record is 40.56 kg/m2. Obstructive sleep apnea (JOSE RAFAEL) worsens with an increase in weight; reduction in weight may improve or resolve your JOSE RAFAEL. Ifyou are not already seeking treatment, there are resources available at the [facility] such as a nutrition consultation or referral to weight management programs at our [facility]. Please let us know if we can assist with a referral. - Continue CPAP at 5-15 cmH2O. - Remember to clean your mask and equipment regularly, as directed. - You should be eligible for new supplies approximately every 3-6 months, depending on your insurance coverage. Contact your [employer] (DME) company for new supplies. [...] the central scheduling system for the [facility] at [phone]. [place] now offers direct scheduling for patients to schedule appointments. Virtual visits are also available. If not covered by your insurance, there is a 35% discount. Please contact your insurance to determine coverage. Call the office at [phone], option #5 for questions. documented in this encounterMarietta Memorial Hospital03-06-2023 History of Present illness Narrative* Lexus Heck APRN.CNP - 07/27/2022 10:30 AM EST Images from the original note were not included. [facility] Virtual Visit Follow [...] will have a prescription sent to a [employer] company - [employer] who will be calling you in the next 1-2 weeks or so. Please call them directly or us if you do not hear from them in this time frame. - Will request formal mask fitting - You should be eligible for new supplies approximately every 3-6 months, depending on your insurance coverage. - If your mask doesn't fit well, call the [employer] company before 30 days are up to [...] Tips for good sleep hygiene [facility] in [facility]. - Follow up in 2 months in the office. Recommend scheduling this appointment now to ensure the besttime for you. [facility] on 04/13/22 CONSULT TO SLEEP MEDICINE - ADULT CPAP/BIPAP/OTHER PAP THERAPY ORDER Lawanda Miranda MD Interval history : Here for follow up for sleep apnea management. SLEEP APNEA Sleep apnea type : JOSE RAFAEL Most Recent Apnea-Hypopnea Index (AHI): 5.3 Treatment : PAP therapy DME: Josh MOJICA fax: [phone] DME ph: [phone] PAP History: Current PAP settin-15 cm H2O. [...] or near accidents due to drowsy drivin [place] Sleepiness Scale 04/12/2022 07/23/2022 Score 4 (No [...] medications, tests, or procedures. documented in this encounterMarietta Memorial Hospital03-03-2023 Miscellaneous Notes* Telephone Encounter - Kyara [...] back to this agent, [facility]. 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 documented in this encounterMarietta Memorial Hospital03-01-2023 Miscellaneous Notes* Telephone Encounter - Gem Mercedes RN - 07/22/2022 2:37 PM EST Retrevot message sent documented in this encounterMarietta Memorial Hospital12-28-2022 History of Present illness Narrative* Kenzie Shannon - 05/20/2022 2:28 PM EST Patient Identification confirmed: yes. Injection given and documented on JUL per provider order. Kenzie Shannon documented in this encounterMarietta Memorial Hospital12-28-2022 Miscellaneous Notes* Addendum Note - Vera Najera MD - 05/20/2022 2:27 PM ESTAddended by: VERA NAJERA on: 05/20/2022 02:27 PM Modules accepted: Orders documented in this encounterMarietta Memorial Hospital12-28-2022 Instructions* Patient Instructions* Vera Najera MD - 05/20/2022 2:23 PM EST B12 Shot Today and every 4 weeks Get fit for CPAP mask and setting this 05/28/2021 Continue Folic acid. RTC in 8 Weeks - labs 1 week before. documented in this encounterMarietta Memorial Hospital12-28-2022 History of Present illness Narrative* Vera Najera MD - 05/20/2022 1:30 PM EST Images from the original note were not included. NAME: Ariadna Haley CLINIC NO.: [id number] DATE OF SERVICE: May 20, 2022 (Marquis) [...] which included preparing to see the patient, dpbw-tv-tkcc patient care, completing clinical documentation, performing a medically appropriate examination, counseling and educating the patient/family/caregiver, ordering medications, tests, or p rocedures, and independently interpreting results (not separately reported). Vera Najera MD, CPE Hematology and Oncology Services Provided at: [place], [place] CC: Vera Najera [address] [place] [address] [place] [address] Manuel Ferris MD, [address] [facility] [address] CC: Manuel Ferris MD [address] [facility] [place] [address] documented in this encounterMarietta Memorial Hospital12-13-2022 Miscellaneous Notes* Telephone Encounter - Gem Mercedes RN - 05/05/2022 2:39 PM EST Faxed order, office notes, demographics, and sleep study to: DME name: Josh Reese DME fax: [phone] DME ph: [phone] Confirmation received. documented in this encounterMarietta Memorial Hospital12-13-2022 Miscellaneous Notes* Telephone Encounter - Gem Mercedes RN - 05/05/2022 12:00 PM EST [employer] message sent documented in this encounterMarietta Memorial Hospital12-13-2022 Miscellaneous Notes* Telephone Encounter - ANALILIA Monterroso - 05/05/2022 11:36 AM EST [facility] received your PAP order. Due to a major [employer] recall and manufacturing shortage, we are unable to fulfill the request to provide your patient with a CPAP/BIPAP machine at this time. We will keep the request on file and provide when inventory is available or you can forward the order to another DME provider such as [employer], [employer] or [employer]. Caring for our patients is our top priority and we apologize for this delay. Thank you for your patience during this time. [phone] #1 documented in this encounterMarietta Memorial Hospital12-02-2022 Miscellaneous Notes* Telephone Encounter - Ny Lance MD - 04/24/2022 2:54 PM EST [...] doctor has noted concern for EDS. Her floor attendant has told her that she has Lupus. Based on her history, I noted we can offer in-person evaluations for herself and/or her son to see if any genetic testing may be useful. I validated and provided support on the difficulty with her ambulation and transport concerns. [facility] and only [facility]. I offered social work and/or transport assistance for the visit. She declined this and will discuss with her regarding the transport. She verbalized understanding the reasons for in-person evaluation recommended. She has the [facility] line and will call to reschedule for an in-person evaluation at [facility]. Ny Lance MD Automation Tech, Associate Staff [facility] documented in this encounterMarietta Memorial Hospital11-30-2022 Miscellaneous Notes* Telephone Encounter - Eliza Licea, [...] copy of the report. Confirmed patient's email [email or web address] Eliza Licea Genetic Counselor Restaurant Assistant Manager documented in this encounterMarietta Memorial Hospital11-08-2022 Miscellaneous Notes* Telephone Encounter - Renate Lawrence MA - 03/31/2022 2:34 PM EST [facility] pharmacy electronically requests the following refill(s) Requested Prescriptions Pending Prescriptions Disp Refills DULoxetine (CYMBALTA) 20 mg capsule [Pharmacy Med Name: DULOXETINE HCL DR 20 MG CAP] 30 capsule 2 Sig: TAKE 1 CAPSULE BY MOUTH ONCE DAILY Renate Lawrence MA documented in this encounterMarietta Memorial Hospital11-07-2022 Miscellaneous Notes* Telephone Encounter - Maria [...] Thanks. Misty Nelson MD documented in this encounterMarietta Memorial Hospital11-07-2022 Miscellaneous Notes* Telephone Encounter - Maria Eugenia Sheehan LPN - 03/30/2022 11:49 AM EST LVM and sent MyChart regarding Dr. Nelson's directive. documented [facility] this encounter[facility] Instructions* Patient Instructions* Vera Najera MD - 03/18/2022 11:16 AM EDT Referral for sleep study pending Start on Folic acid. RTC in 8 Weeks - labs 1 week before. documented in this encounterM[facility]10[facility] History of Present illness Narrative* Vera Najera MD - 03/18/2022 10:45 AM EDT Images from the original note were not included. NAME: TeraAriadna [facility] NO.: [id number] DATE OF SERVICE: March 18, 2022 ([place]) [...] which included preparing to see the patient, [id number] patient care, completing clinical documentation, performing a medically appropriate examination, counseling and educating the patient/family/caregiver, ordering medications, tests, or p rocedures, and independently interpreting results (not separately reported). Vera Najera MD, CPE Hematology and Oncology Services Provided at: [place], [place] CC: Manuel Ferris MD [address] [facility] [id number] documented in this encounterMari[facility]10-18-2022 History of Present illness Narrative* Misty Nelson MD - 03/10/2022 2:14 PM EDT VIRTUAL VISIT PROGRESS NOTE This is a virtual visit using [employer] video visit. It required patient-provider interaction for [...] the HR increases again She sees a dehydrogenation converter helper in [place] PCP is running the Holter and echo [...] but was not pursued yet Lives in [place] She did have LN biopsy in the [...] visit. Misty Nelson MD documented in this encounterM[facility]10-17-2022 History of Past illness Narrative* Problem Noted Date Diagnosed Date Resolved Date Obesity, Class II, BMI 35-39.9 03/09/2022 03/10/2023 Obesity (BMI 30-39.9) 05/31/20142016 documented as of this encounter (statuses as of 03/10/2023) [facility] of Past illness Narrative* Problem Noted Date Diagnosed Date Resolved Date Obesity, Class II, BMI 35-39.9 03/09/2022 03/10/2023 Obesity (BMI 30-39.9) 05/31/20142016 documented as of this encounter (statuses as of 03/11/2023) [address]17-2022 History of Past illness Narrative* Problem Noted Date Diagnosed Date Resolved Date Obesity, Class II, BMI 35-39.9 03/09/2022 03/10/2023 Obesity (BMI 30-39.9) 05/31/20142016 documented as of this encounter (statuses as of 03/19/2023) [facility] of Past illness Narrative* Problem Noted Date Diagnosed Date Resolved Date Obesity, Class II, BMI 35-39.9 03/09/2022 03/10/2023 Obesity (BMI 30-39.9) 05/31/20142016 documented as of this encounter (statuses as of 03/24/2023) [facility] of Past illness Narrative* Problem Noted Date Diagnosed Date Resolved Date Obesity, Class II, BMI 35-39.9 03/09/2022 03/10/2023 Obesity (BMI 30-39.9) 05/31/20142016 documented as of this encounter (statuses as of 04/16/2023) [facility] of Past illness Narrative* Problem Noted Date Diagnosed Date Resolved Date Obesity, Class II, BMI 35-39.9 03/09/2022 03/10/2023 Obesity (BMI 30-39.9) 05/31/20142016 documented as of this encounter (statuses as of 04/23/2023) [facility] of Past illness Narrative* Problem Noted Date Diagnosed Date Resolved Date Obesity, Class II, BMI 35-39.9 03/09/2022 03/10/2023 Obesity (BMI 30-39.9) 05/31/20142016 documented as of this encounter (statuses as of 04/27/2023) [address]17-2022 History of Past illness Narrative* Problem Noted Date Diagnosed Date Resolved Date Obesity, Class II, BMI 35-39.9 03/09/2022 03/10/2023 Obesity (BMI 30-39.9) 05/31/20142016 documented as of this encounter (statuses as of 04/27/2023) [address]17-2022 History of Past illness Narrative* Problem Noted Date Diagnosed Date Resolved Date Obesity, Class II, BMI 35-39.9 03/09/2022 03/10/2023 Obesity (BMI 30-39.9) 05/31/20142016 documented as of this encounter (statuses as of 05/31/2023) [address]17-2022 History of Past illness Narrative* Problem Noted Date Diagnosed Date Resolved Date Obesity, Class II, BMI 35-39.9 03/09/2022 03/10/2023 Obesity (BMI 30-39.9) 05/31/20142016 documented as of this encounter (statuses as of 07/13/2023) [address]17-2022 History of Past illness Narrative* Problem Noted Date Diagnosed Date Resolved Date Obesity, Class II, BMI 35-39.9 03/09/2022 03/10/2023 Obesity (BMI 30-39.9) 05/31/20142016 documented as of this encounter (statuses as of 07/13/2023) [address]17-2022 History of Past illness Narrative* Problem Noted Date Diagnosed Date Resolved Date Obesity, Class II, BMI 35-39.9 03/09/2022 03/10/2023 Obesity (BMI 30-39.9) 05/31/20142016 documented as of this encounter (statuses as of 08/05/2023) [address]17-2022 History of Past illness Narrative* Problem Noted Date Diagnosed Date Resolved Date Obesity, Class II, BMI 35-39.9 03/09/2022 03/10/2023 Obesity (BMI 30-39.9) 05/31/20142016 documented as of this encounter (statuses as of 08/12/2023) [address]17-2022 History of Past illness Narrative* Problem Noted Date Diagnosed Date Resolved Date Obesity, Class II, BMI 35-39.9 03/09/2022 03/10/2023 Obesity (BMI 30-39.9) 05/31/20142016 documented as of this encounter (statuses as of 09/01/2023) [facility] of [facility] illness Narrative* Problem Noted Date Diagnosed Date Resolved Date Obesity, Class II, BMI 35-39.9 03/09/2022 03/10/2023 Obesity (BMI 30-39.9) 05/31/20142016 documented as of this encounter (statuses as of 09/06/2023) [facility] of Past illness Narrative* Problem Noted Date Diagnosed Date Resolved Date Obesity, Class II, BMI 35-39.9 03/09/2022 03/10/2023 Obesity (BMI 30-39.9) 05/31/20142016 documented as of this encounter (statuses as of 09/11/2023) [facility] Instructions* Patient Instructions* Christie Phan MD - 03/09/2022 12:47 PM EDT Check EKG for prolonged QT. If normal, I would try going back on the Lexapro, can recheck an EKG inabout a month to make sure that things are going ok. (I'm leaving this, but we are changing to Cymbalta) Tilt Table Test [email or web address] documented in this encounterM[facility]10-17-2022 History of Present illness Narrative* Christie Phan MD - 03/09/2022 12:08 PM EDT Images from the original note were not included. 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 documented in this encounterM[facility]10-14-2022 Miscellaneous Notes* Telephone Encounter - Krista [...] accordingly. Lynne Ni MD documented in this encounterMari[facility]10-12-2022 Instructions* Patient Instructions* Vera Najera MD - 03/04/2022 11:42 AM EDT Labs today. Referral for sleep study. RTC in 2 weeks. Consider immunology referral. Referral to lifestyle medicine documented in this encounterM[facility]10-12-2022 History of Present illness Narrative* Vera Najera MD - 03/04/2022 11:19 AM EDT Images from the original note were not included. NAME: Ariadna Haley CLIN[facility] NO.: [id number] DATE OF SERVICE: March 04, 2022 Referring [...] which included preparing to see the patient, [id number] patient care, completing clinical documentation, obtaining and/or reviewing separately obtained history, performing a medically appropriate examination, counseling and educating the pat ient/family/caregiver, ordering medications, tests, or procedures, and independently interpreting results (not separately reported). Vera Najera MD, CPE Hematology and Oncology Services Provided at: [place], [place] CC: Manuel Ferris MD [address] [place] [address] Manuel Ferris MD, MD [address] [place], [place] [address] documented in this encounterM[facility]2022 History of Present illness Narrative* Alhaji Head DO - 02/24/2022 6:00 PM EDT VIRTUAL VISIT PROGRESS NOTE This is a virtual visit using [employer] video visit. 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 Her floor attendant is Dr. Ni. Dr. Ni and I [...] - R00.0) Nov, Flushing (ICD-10 - R23.2) [email or web address] Other 06-03-2022 Nurse Note* Lynne Ni MD - 10/24/2021 8:32 AM EDT See progress note documented in this encounterMarietta [facility]06-03-2022 History of Present illness Narrative* Lynne [...] Due for eye exam. Labs sent to [facility]/completed in 06/2021 (no results faxed to office, but patient pulled up results on her phone). Chronic current pain in neck, flank area, mid back, knees, legs, arms, all over pain. Better with lyrica 75mg 3times a day. Reports pain -12/31. Couple hrs AM stiffness. COVID vaccine Neofect 09/28/20, 10/19/20, 05/26/21. Feels safe at home. [...] Date(s) Administered COVID-19 vaccine, age 12+ yr (InterResolve - PURPLE TOP) 09/28/2020 10/19/2020 Pneumovax no [...] Diagnostic tests reviewed for today's visit: Outside [place] 06/2021 low vitamin D 16, vitamin b12-307;high [...] Due for eye exam. Labs sent to [facility]/completed in 06/2021 (no results faxed to office, [...] (200mg) daily with a meal Please see senior fire protection engineer every 6-12months while on Hydroxychloroquine. Recommend goal: [...] touching your toes, sit-ups, using row machine detention pain recommendations per primary care provider/pain clinic [...] video & audio (virtual) or phone or [id number] patient care, completing clinical documentation, obtaining and/or [...] body? With SOME difficulty Bend down to hot die picker clothing from the floor? With SOME [...] my health Strongly Agree documented in this encounterM[facility]06-03-2022 Instructions* Patient Instructions* Lynne Ni MD [...] (200mg) daily with a meal Please see senior fire protection engineer every 6-12months while on Hydroxychloroquine. Recommend goal: [...] touching your toes, sit-ups, using row machine detention pain recommendations per primary care provider/pain clinic Thank you. documented in this encounterM[facility]05-25-2022 Evaluation note* Encounter Date Diagnosis Assessment [...] diagnosis I will defer that to her floor attendant. September, Tachycardia (ICD-10 - R00.0) September, Flushing (ICD-10 - R23.2) [email or web address] Other 04-28-2022 Evaluation note* Encounter Date Diagnosis Assessment Notes Treatment Notes Treatment Clinical Notes Aug, Elevated sed rate (ICD-10 - R70.0) [email or web address] Other 04-21-2022 Evaluation note* Encounter Date Diagnosis [...] diagnosis I will defer that to her floor attendant. [email or web address] Other 05-17-2021 Hospital Discharge instructions* Instructions* So [...] be sent through Care Everywhere. * amlodipine (Azerbaijani) * nitroglycerin (oral/sublingual) (Azerbaijani) documented in this [employer] Phone: 1(598) 395-956005-17-2021 History of Present illness Narrative* So Carlisle, RN - 10/07/2020 1:20 PM EDT Remaining [...] needs to be completed. documented in this [email or web address] Work Phone: 1(351) 938-540101-08-2015 History of Past illness Narrative* Problem Noted Date Resolved Date Obesity (BMI 30-39.9) 05/31/2014 07/06/2016 documented as of this encounter (statuses as of 10/24/2021) [facility] Narrative* Problem Noted Date Resolved Date Obesity (BMI 30-39.9) 05/31/2014 07/06/2016 documented as of this encounter (statuses as of 02/25/2022) [address]08-2015 History of Past illness Narrative* Problem Noted Date Resolved Date Obesity (BMI 30-39.9) 05/31/2014 07/06/2016 documented as of this encounter (statuses as of 03/02/2022) [place] [address]-08-2015 History of Past illness Narrative* Problem Noted Date Resolved Date Obesity (BMI 30-39.9) 05/31/2014 07/06/2016 documented as of this encounter (statuses as of 03/04/2022) [address]08-2015 History of Past illness Narrative* Problem Noted Date Resolved Date Obesity (BMI 30-39.9) 05/31/2014 07/06/2016 documented as of this encounter (statuses as of 03/05/2022) [address]08-2015 History of Past illness Narrative* Problem Noted Date Resolved Date Obesity (BMI 30-39.9) 05/31/2014 07/06/2016 documented as of this encounter (statuses as of 03/06/2022) [address]08-2015 History of Past illness Narrative* Problem Noted Date Resolved Date Obesity (BMI 30-39.9) 05/31/2014 07/06/2016 documented as of this encounter (statuses as of 03/09/2022) [address]08-2015 History of Past illness Narrative* Problem Noted Date Resolved Date Obesity (BMI 30-39.9) 05/31/2014 07/06/2016 documented as of this encounter (statuses as of 03/10/2022) [address]08-2015 History of Past illness Narrative* Problem Noted Date Resolved Date Obesity (BMI 30-39.9) 05/31/2014 07/06/2016 documented as of this encounter (statuses as of 03/10/2022) [address]08-2015 History of Past illness Narrative* Problem Noted Date Resolved Date Obesity (BMI 30-39.9) 05/31/2014 07/06/2016 documented as of this encounter (statuses as of 03/12/2022) [address]08-2015 History of Past illness Narrative* Problem Noted Date Resolved Date Obesity (BMI 30-39.9) 05/31/2014 07/06/2016 documented as of this encounter (statuses as of 03/18/2022) [address]08-2015 History of Past illness Narrative* Problem Noted Date Resolved Date Obesity (BMI 30-39.9) 05/31/2014 07/06/2016 documented as of this encounter (statuses as of 03/22/2022) [address]08-2015 History of Past illness Narrative* Problem Noted Date Resolved Date Obesity (BMI 30-39.9) 05/31/2014 07/06/2016 documented as of this encounter (statuses as of 03/30/2022) [place] [address] History of Past illness Narrative* Problem Noted Date Resolved Date Obesity (BMI 30-39.9) 05/31/2014 07/06/2016 documented as of this encounter (statuses as of 03/30/2022) [address]08-2015 History of Past illness Narrative* Problem Noted Date Resolved Date Obesity (BMI 30-39.9) 05/31/2014 07/06/2016 documented as of this encounter (statuses as of 04/03/2022) [address]08-2015 History of Past illness Narrative* Problem Noted Date Resolved Date Obesity (BMI 30-39.9) 05/31/2014 07/06/2016 documented as of this encounter (statuses as of 04/03/2022) [address]08-2015 History of Past illness Narrative* Problem Noted Date Resolved Date Obesity (BMI 30-39.9) 05/31/2014 07/06/2016 documented as of this encounter (statuses as of 04/22/2022) [address]08-2015 History of Past illness Narrative* Problem Noted Date Resolved Date Obesity (BMI 30-39.9) 05/31/2014 07/06/2016 documented as of this encounter (statuses as of 04/24/2022) [address]08-2015 History of Past illness Narrative* Problem Noted Date Resolved Date Obesity (BMI 30-39.9) 05/31/2014 07/06/2016 documented as of this encounter (statuses as of 05/05/2022) [address]08-2015 History of Past illness Narrative* Problem Noted Date Resolved Date Obesity (BMI 30-39.9) 05/31/2014 07/06/2016 documented as of this encounter (statuses as of 05/05/2022) [address]08-2015 History of Past illness Narrative* Problem Noted Date Resolved Date Obesity (BMI 30-39.9) 05/31/2014 07/06/2016 documented as of this encounter (statuses as of 05/05/2022) [address]08-2015 History of Past illness Narrative* Problem Noted Date Resolved Date Obesity (BMI 30-39.9) 05/31/2014 07/06/2016 documented as of this encounter (statuses as of 05/26/2022) [address]08-2015 History of Past illness Narrative* Problem Noted Date Resolved Date Obesity (BMI 30-39.9) 05/31/2014 07/06/2016 documented as of this encounter (statuses as of 05/27/2022) [address]08-2015 History of Past illness Narrative* Problem Noted Date Resolved Date Obesity (BMI 30-39.9) 05/31/2014 07/06/2016 documented as of this encounter (statuses as of 07/22/2022) [address]08-2015 History of Past illness Narrative* Problem Noted Date Resolved Date Obesity (BMI 30-39.9) 05/31/2014 07/06/2016 documented as of this encounter (statuses as of 07/25/2022) [address]08-2015 History of Past illness Narrative* Problem Noted Date Resolved Date Obesity (BMI 30-39.9) 05/31/2014 07/06/2016 documented as of this encounter (statuses as of 07/27/2022) [address]08-2015 History of Past illness Narrative* Problem Noted Date Resolved Date Obesity (BMI 30-39.9) 05/31/2014 07/06/2016 documented as of this encounter (statuses as of 07/28/2022) [address]08-2015 History of Past illness Narrative* Problem Noted Date Resolved Date Obesity (BMI 30-39.9) 05/31/2014 07/06/2016 documented as of this encounter (statuses as of 08/10/2022) [address]08-2015 History of Past illness Narrative* Problem Noted Date Resolved Date Obesity (BMI 30-39.9) 05/31/2014 07/06/2016 documented as of this encounter (statuses as of 08/18/2022) [address]08-2015 History of Past illness Narrative* Problem Noted Date Resolved Date Obesity (BMI 30-39.9) 05/31/2014 07/06/2016 documented as of this encounter (statuses as of 08/19/2022) [address]08-2015 History of Past illness Narrative* Problem Noted Date Resolved Date Obesity (BMI 30-39.9) 05/31/2014 07/06/2016 documented as of this encounter (statuses as of 08/27/2022) [address]08-2015 History of Past illness Narrative* Problem Noted Date Resolved Date Obesity (BMI 30-39.9) 05/31/2014 07/06/2016 documented as of this encounter (statuses as of 08/29/2022) [address]08-2015 History of Past illness Narrative* Problem Noted Date Resolved Date Obesity (BMI 30-39.9) 05/31/2014 07/06/2016 documented as of this encounter (statuses as of 08/31/2022) [address]08-2015 History of Past illness Narrative* Problem Noted Date Resolved Date Obesity (BMI 30-39.9) 05/31/2014 07/06/2016 documented as of this encounter (statuses as of 09/08/2022) [address]08-2015 History of Past illness Narrative* Problem Noted Date Resolved Date Obesity (BMI 30-39.9) 05/31/2014 07/06/2016 documented as of this encounter (statuses as of 09/08/2022) [address]08-2015 History of Past illness Narrative* Problem Noted Date Resolved Date Obesity (BMI 30-39.9) 05/31/2014 07/06/2016 documented as of this encounter (statuses as of 09/24/2022) [address]08-2015 History of Past illness Narrative* Problem Noted Date Resolved Date Obesity (BMI 30-39.9) 05/31/2014 07/06/2016 documented as of this encounter (statuses as of 10/22/2022) [address]08-2015 History of Past illness Narrative* Problem Noted Date Resolved Date Obesity (BMI 30-39.9) 05/31/2014 07/06/2016 documented as of this encounter (statuses as of 10/25/2022) [address]08-2015 History of Past illness Narrative* Problem Noted Date Resolved Date Obesity (BMI 30-39.9) 05/31/2014 07/06/2016 documented as of this encounter (statuses as of 11/19/2022) [address]08-2015 History of Past illness Narrative* Problem Noted Date Resolved Date Obesity (BMI 30-39.9) 05/31/2014 07/06/2016 documented as of this encounter (statuses as of 11/25/2022) [address]08-2015 History of Past illness Narrative* Problem Noted Date Diagnosed Date Resolved Date Obesity (BMI 30-39.9) 05/31/20142016 documented as of this encounter (statuses as of 12/08/2022) [address]08-2015 History of Past illness Narrative* Problem Noted Date Diagnosed Date Resolved Date Obesity (BMI 30-39.9) 05/31/20142016 documented as of this encounter (statuses as of 12/18/2022) [address]08-2015 History of Past illness Narrative* Problem Noted Date Diagnosed Date Resolved Date Obesity (BMI 30-39.9) 05/31/20142016 documented as of this encounter (statuses as of 12/18/2022) [address]08-2015 History of Past illness Narrative* Problem Noted Date Diagnosed Date Resolved Date Obesity (BMI 30-39.9) 05/31/20142016 documented as of this encounter (statuses as of 12/21/2022) [address]08-2015 History of Past illness Narrative* Problem Noted Date Diagnosed Date Resolved Date Obesity (BMI 30-39.9) 05/31/20142016 documented as of this encounter (statuses as of 12/22/2022) [address]08-2015 History of Past illness Narrative* Problem Noted Date Diagnosed Date Resolved Date Obesity (BMI 30-39.9) 05/31/20142016 documented as of this encounter (statuses as of 01/02/2023) [address]08-2015 History of Past illness Narrative* Problem Noted Date Diagnosed Date Resolved Date Obesity (BMI 30-39.9) 05/31/20142016 documented as of this encounter (statuses as of 01/13/2023) [address]08-2015 History of Past illness Narrative* Problem Noted Date Diagnosed Date Resolved Date Obesity (BMI 30-39.9) 05/31/20142016 documented as of this encounter (statuses as of 01/22/2023) [address]08-2015 History of Past illness Narrative* Problem Noted Date Diagnosed Date Resolved Date Obesity (BMI 30-39.9) 05/31/20142016 documented as of this encounter (statuses as of 01/26/2023) [address]08-2015 History of Past illness Narrative* Problem Noted Date Diagnosed Date Resolved Date Obesity (BMI 30-39.9) 05/31/20142016 documented as of this encounter (statuses as of 02/04/2023) [place] [address]-2015 History of Past illness Narrative* Problem Noted Date Diagnosed Date Resolved Date Obesity (BMI 30-39.9) 05/31/20142016 documented as of this encounter (statuses as of 02/04/2023) [address]08-2015 History of Past illness Narrative* Problem Noted Date Diagnosed Date Resolved Date Obesity (BMI 30-39.9) 05/31/20142016 documented as of this encounter (statuses as of 02/07/2023) [address]08-2015 History of Past illness Narrative* Problem Noted Date Diagnosed Date Resolved Date Obesity (BMI 30-39.9) 05/31/20142016 documented as of this encounter (statuses as of 02/08/2023) [place] [address]-2015 History of Past illness Narrative* Problem Noted Date Diagnosed Date Resolved Date Obesity (BMI 30-39.9) 05/31/20142016 documented as of this encounter (statuses as of 02/16/2023) [place] [address]-2015 History of Past illness Narrative* Problem Noted Date Diagnosed Date Resolved Date Obesity (BMI 30-39.9) 05/31/20142016 documented as of this encounter (statuses as of 02/19/2023) [place] [address]-2015 History of Past illness Narrative* Problem Noted Date Diagnosed Date Resolved Date Obesity (BMI 30-39.9) 05/31/20142016 documented as of this encounter (statuses as of 02/21/2023) [address]08[address]2015 History of Past illness Narrative* Problem Noted Date Diagnosed Date Resolved Date Obesity (BMI 30-39.9) 05/31/20142016 documented as of this encounter (statuses as of 03/02/2023) [facility] Other systemic lupus erythematosus [...] and myositis, unspecified [facility] Swelling of lymph nodes- Primary Enlargement of lymph nodes Other systemic lupus erythematosus with other organ involvement (HCC) On prednisone therapy Hair loss Alopecia, unspecified Bilateral sacroiliitis (HCC) Long-term use of Plaquenil 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-term (current) use of other medications [facility] Vitamin B12 deficiency- Primary Other B-complex deficiencies Vitamin D deficiency Unspecified vitamin D deficiency Elevated sed rate Elevated sedimentation rate Elevated C-reactive protein (CRP) [facility] Diagnosis 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 Other vitamin B12 deficiency anemia Somnolence, daytime Hypersomnia, unspecified Snoring Other dyspnea and respiratory abnormality Chronic fatigue and malaise Chronic fatigue syndrome Obesity, unspecified classification, unspecified obesity type, unspecified whether serious comorbidity present [facility] Diagnosis Obesity, Class II, BMI [...] nonspecific immunological findings [facility] Diagnosis Megaloblastic anemia due to vitamin B12 deficiency- Primary Other vitamin B12 deficiency anemia High total serum IgM [facility] Raised level of immunoglobulins- Primary Other and unspecified nonspecific immunological findings Wound healing, delayed Open wound(s) (multiple) of unspecified site(s), complicated Current smoker Tobacco use disorder [facility] Family history of genetic [...] Chronic fatigue syndrome [facility] Diagnosis JOSE RAFAEL (obstructive sleep [...] Anemia of other chronic disease Encounter for detention 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-term (current) use of other medications [facility] Diagnosis Megaloblastic anemia due to vitamin B12 deficiency- Primary Other vitamin B12 deficiency anemia Elevated sed rate Elevated sedimentation rate [facility] Diagnosis Megaloblastic anemia due to vitamin [...] Elevated sedimentation rate [facility] Diagnosis Megaloblastic anemia due to vitamin B12 deficiency- Primary Other vitamin B12 deficiency anemia Elevated sed rate Elevated sedimentation rate [facility] Diagnosis Megaloblastic anemia due to vitamin B12 deficiency- Primary Other vitamin B12 deficiency anemia Elevated sed rate Elevated sedimentation rate High total serum IgM Chronic fatigue and malaise Chronic fatigue syndrome Obstructive sleep apnea syndrome Obstructive sleep apnea (adult) (pediatric) [facility] Diagnosis Megaloblastic anemia due to vitamin B12 deficiency- Primary Other vitamin B12 deficiency anemia Elevated sed rate Elevated sedimentation rate [facility] Diagnosis Other systemic lupus erythematosus with other organ involvement (HCC) Encounter for detention 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-term (current) use of other medications [facility] Diagnosis Megaloblastic anemia due to vitamin B12 deficiency- Primary Other vitamin B12 deficiency anemia Chronic fatigue and malaise Chronic fatigue syndrome [facility] Diagnosis High total serum IgM- Primary Low serum IgG for age Current smoker Tobacco use disorder [facility] Diagnosis Obesity, Class II, BMI 35-39.9 Obesity, unspecified Prediabetes Other abnormal glucose [facility] Diagnosis Megaloblastic anemia due to vitamin B12 deficiency- Primary Other vitamin B12 deficiency anemia Elevated sed rate Elevated sedimentation rate [facility] Diagnosis Other systemic lupus erythematosus with other organ involvement (HCC)- Primary Vitamin D deficiency Unspecified vitamin D deficiency Elevated LFTs Other abnormal blood chemistry Anemia of chronic disease Anemia of other chronic disease Elevated sed rate Elevated sedimentation rate Elevated C-reactive protein (CRP) [facility] Diagnosis Other systemic lupus erythematosus with [...] Bilateral wrist pain 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, forearm prison 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-term (current) use of steroids Steroid-induced osteoporosis Other osteoporosis 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 [facility] Diagnosis Systemic lupus erythematosus with other organ involvement (HCC)- Primary [facility] Diagnosis Megaloblastic anemia due to vitamin B12 deficiency- Primary Other vitamin B12 deficiency anemia High total serum IgM Elevated sed rate Elevated sedimentation rate [facility] Diagnosis Other systemic lupus erythematosus with other organ involvement (HCC)- Primary [facility] Diagnosis Other systemic lupus erythematosus with other organ involvement (HCC) 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 manager 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-term (current) use of other medications [facility] Diagnosis Megaloblastic anemia due to vitamin B12 deficiency- Primary Other vitamin B12 deficiency anemia Elevated sed rate Elevated sedimentation rate [facility] Diagnosis Megaloblastic anemia due to vitamin B12 deficiency- Primary Other vitamin B12 deficiency anemia Elevated sed rate Elevated sedimentation rate Chronic fatigue and malaise Chronic fatigue syndrome High total serum IgM JOSE RAFAEL (obstructive sleep apnea) Obstructive sleep apnea (adult) (pediatric) [facility] Diagnosis Insulin resistance, unspecified- Primary Depression, recurrent (HCC) Major depressive disorder, recurrent episode, unspecified Chronic pain syndrome [facility] Diagnosis Systemic lupus erythematosus, unspecified SLE type, unspecified organ involvement status (HCC)- Primary [facility] Diagnosis Megaloblastic anemia due to vitamin B12 deficiency- Primary Other vitamin B12 deficiency anemia Elevated sed rate Elevated sedimentation rate [facility] Diagnosis Megaloblastic anemia due to vitamin B12 deficiency- Primary Other vitamin B12 deficiency anemia Elevated sed rate Elevated sedimentation rate [facility] Diagnosis Obesity, Class III, BMI >= 40- Primary Morbid obesity FUO (fever of unknown origin) Fever, unspecified Other chronic pain [facility] Diagnosis Obesity, Class III, BMI >= 40 Morbid obesity [facility] Diagnosis Obesity, Class III, BMI >= 40- Primary Morbid obesity Other chronic pain [facility] Diagnosis Irregular heart rate- Primary Essential hypertension Unspecified essential hypertension Autonomic dysfunction Obstructive sleep apnea syndrome Obstructive sleep apnea (adult) (pediatric) Primary hypertension Unspecified essential hypertension documented in this encounter [facility] Work Phone: Evaluation note* Diagnosis Autoimmune disease (CMS/HCC)- Primary Autoimmune disease, not elsewhere classified Autonomic dysfunction Lumbosacral radiculopathy Thoracic or lumbosacral neuritis or radiculitis, unspecified Bilateral leg weakness Muscle weakness (generalized) [facility] Diagnosis Shortness of breath- Primary Paroxysmal supraventricular tachycardia PAC (premature atrial contraction) Supraventricular premature beats Current smoker Systemic lupus erythematosus, unspecified SLE type, unspecified organ involvement status (CMS/HCC) Palpitations Obstructive sleep apnea syndrome Obstructive sleep apnea (adult) (pediatric) Morbid obesity (CMS/HCC) Morbid obesity Bilateral lower extremity edema documented in this encounter [facility] Work Phone: Evaluation note* Diagnosis Megaloblastic anemia due to vitamin B12 deficiency- Primary Other vitamin B12 deficiency anemia Elevated sed rate Elevated sedimentation rate [facility] Diagnosis Systemic lupus erythematosus with other organ involvement (HCC)- Primary [facility] Diagnosis Systemic lupus erythematosus with other organ involvement (HCC)- Primary [facility] Diagnosis Megaloblastic anemia due to vitamin B12 deficiency- Primary Other vitamin B12 deficiency anemia Elevated sed rate Elevated sedimentation rate [facility] Diagnosis Other systemic lupus erythematosus with other organ involvement (HCC)- Primary Vitamin D deficiency Unspecified vitamin D deficiency Elevated LFTs Other abnormal blood chemistry Anemia of chronic disease Anemia of other chronic disease Elevated sed rate Elevated sedimentation rate Elevated C-reactive protein (CRP) [facility] Diagnosis Megaloblastic anemia due to vitamin [...] other medications 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 Encounter for [...] with other organ involvement (HCC) Encounter for manager 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-term [...] apnea (adult) (pediatric) [facility] Diagnosis Elevated LFTs- Primary Other abnormal blood chemistry Elevated C-reactive protein (CRP) Elevated sed rate Elevated sedimentation rate Vitamin D deficiency Unspecified vitamin D deficiency Screening-pulmonary TB Screening examination for pulmonary tuberculosis [facility] Diagnosis Other systemic lupus erythematosus with other organ involvement (HCC) [facility] Diagnosis Systemic lupus erythematosus with other organ involvement (HCC)- Primary [facility] Diagnosis Elevated sed rate- Primary Elevated sedimentation rate Megaloblastic anemia due to vitamin B12 deficiency Other vitamin B12 deficiency anemia [facility] Diagnosis Pseudomonas infection- Primary Pseudomonas infection in conditions classified elsewhere and of unspecified site Other systemic lupus erythematosus with other organ involvement (HCC) On prednisone therapy Long-term use of Plaquenil 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-term (current) use of other medications [facility] Diagnosis Onset Date Resolution Status Lupus acute Recurrent Clostridioides difficile diarrhea acute Nipple discharge in female a cute Recurrent Clostridioides difficile diarrhea acute Lumbosacral spondylosis acut e Other chronic pain acute Sacroiliitis [facility] Work Phone: Evaluation note* Diagnosis JOSE RAFAEL (obstructive sleep apnea)- Primary Obstructive sleep apnea (adult) (pediatric) Somnolence, daytime Hypersomnia, unspecified [facility]* Diagnosis Systemic lupus erythematosus with other organ involvement (HCC)- Primary [facility]* Diagnosis Systemic lupus erythematosus with other organ involvement (HCC)- Primary [facility] Diagnosis Onset Date Resolution Status Nipple discharge in female a cute Recurrent Clostridioides difficile diarrhea acute Lumbosacral spondylosis acut e Other chronic pain acute Sacroiliitis [facility] Work Phone: Evaluation note* Diagnosis Elevated sed rate- Primary Elevated sedimentation rate Megaloblastic anemia due to vitamin B12 deficiency Other vitamin B12 deficiency anemia [facility] Diagnosis Onset Date Resolution Status Nipple discharge in female a cute Recurrent Clostridioides difficile diarrhea acute Lumbosacral spondylosis acut e Other chronic pain acute Sacroiliitis acute Lumbosacral spondylosis acut e Other chronic pain acute Sacroiliitis acute [facility] [place] Work Phone: Evaluation note* Diagnosis Lumbosacral radiculopathy at L5 Degenerative disc disease, lumbar Cervical radiculopathy at C5 [facility] Diagnosis Onset Date Resolution Status Lumbosacral spondylosis acut e Other chronic pain acute Sacroiliitis acute Lumbosacral spondylosis acut e Other chronic pain acute Sacroiliitis acute [facility] [place] Work Phone: Evaluation note* Diagnosis Other systemic lupus erythematosus with other organ involvement (HCC) [facility] Diagnosis Other systemic lupus erythematosus [...] both feet 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-term (current) use of steroids Bilateral hand pain Pain in limb Systemic lupus erythematosus, unspecified SLE type, unspecified organ involvement status (HCC) Vitamin B12 deficiency Other B-complex deficiencies Discoid lupus erythematosus Lupus erythematosus [facility] Diagnosis Nipple discharge Other sign and symptom in breast documented in this [facility]* Diagnosis Elevated sed rate- Primary Elevated sedimentation rate Megaloblastic anemia due to vitamin B12 deficiency Other vitamin B12 deficiency anemia [facility] Diagnosis Abnormal uterine bleeding (AUB) Menorrhagia with regular cycle documented in this [facility]* Diagnosis Megaloblastic anemia due to vitamin B12 deficiency- Primary Other vitamin B12 deficiency anemia High total serum IgM JOSE RAFAEL (obstructive sleep apnea) Obstructive sleep apnea (adult) (pediatric) Elevated sed rate Elevated sedimentation rate Hypogammaglobulinemia (HCC) Hypogammaglobulinaemia, unspecified Frequent infections [facility] Diagnosis Oral thrush- Primary Candidiasis of mouth documented in this [facility]* Diagnosis Oral thrush- Primary Candidiasis of mouth documented in this [facility]* Diagnosis Systemic lupus erythematosus with other organ involvement (HCC)- Primary [facility] Diagnosis LPRD (laryngopharyngeal reflux disease)- Primary Acute laryngitis, without mention of obstruction Acute otalgia, right documented in this encounter [facility]* Diagnosis Autoimmune disease (CMS/HCC) Autoimmune disease, not elsewhere classified Fibromyalgia Unspecified myalgia and myositis Numbness Disturbance of skin sensation [facility] Diagnosis Lumbosacral radiculopathy at L5- Primary Degenerative disc disease, lumbar Cervical radiculopathy at C5 [facility] Diagnosis Degenerative disc disease, lumbar- Primary Lumbosacral radiculopathy at L5 [facility] Diagnosis Frequent infections- Primary Megaloblastic anemia due to vitamin B12 deficiency Other vitamin B12 deficiency anemia Elevated sed rate Elevated sedimentation rate Hypogammaglobulinemia (HCC) Hypogammaglobulinaemia, unspecified Bilateral leg weakness Other musculoskeletal symptoms referable to limbs Discoid lupus erythematosus Lupus erythematosus [facility] Diagnosis Well woman exam with routine gynecological exam Routine gynecological examination Breast cancer screening by mammogram Breast nodule Other (abnormal) findings on radiological examination of breast [facility] Diagnosis Megaloblastic anemia due to vitamin B12 deficiency- Primary Other vitamin B12 deficiency anemia Hypogammaglobulinemia (HCC) Hypogammaglobulinaemia, unspecified Positive blood cultures Bacteremia Malaise and fatigue Other malaise and fatigue SOB (shortness of breath) Shortness of breath [facility] Diagnosis Elevated sed rate- Primary Elevated sedimentation rate Megaloblastic anemia due to vitamin B12 deficiency Other vitamin B12 deficiency anemia Hypogammaglobulinemia (HCC) Hypogammaglobulinaemia, unspecified Frequent infections Bilateral leg weakness Other musculoskeletal symptoms referable to limbs Discoid lupus erythematosus Lupus erythematosus documented [facility] Diagnosis Diarrhea, unspecified type- Primary Abdominal pressure Abdominal pain, unspecified site [facility] Diagnosis Other iron deficiency anemia- Primary [facility]* Diagnosis Other systemic lupus erythematosus with other organ involvement (HCC) documented [facility]* Diagnosis Systemic lupus erythematosus with other organ involvement (HCC)- Primary [facility]* Diagnosis Systemic lupus erythematosus (CMS-HCC)- Primary Cold extremities Pain of lower extremity, unspecified laterality Rheumatoid arthritis, involving unspecified site, unspecified whether rheumatoid factor present (CMS-HCC) Current smoker 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 [facility] Diagnosis Systemic lupus erythematosus (CMS-HCC)- Primary Cold extremities Pain of lower extremity, unspecified laterality Rheumatoid arthritis, involving unspecified site, unspecified whether rheumatoid factor present (CMS-HCC) Current smoker 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 Peripheral vascular disease, unspecified ([facility]-HCC)- Primary Peripheral vascular disease, unspecified Cold extremities Systemic lupus erythematosus (CMS-HCC) [facility] Diagnosis Other systemic lupus erythematosus with other organ involvement (HCC)- Primary Vitamin D deficiency Unspecified vitamin D deficiency Elevated LFTs Other abnormal blood chemistry Anemia of chronic disease Anemia of other chronic disease Elevated sed rate Elevated sedimentation rate Elevated C-reactive protein (CRP) [facility] Diagnosis Onset Date Resolution Status Admit Date Lumbosacral spondylosis acute F ebruary 2024 3:16pm Other chronic pain acute Februa ry 2024 3:16pm Sacroiliitis acute June 3:16pm [facility] [place] Work Phone: Evaluation note* Diagnosis Elevated sed rate- Primary Elevated sedimentation rate Megaloblastic anemia due to vitamin B12 deficiency Other vitamin B12 deficiency anemia Frequent infections Hypogammaglobulinemia (HCC) Hypogammaglobulinaemia, unspecified Bilateral leg weakness Other musculoskeletal symptoms referable to limbs Discoid lupus erythematosus Lupus erythematosus [facility]* Diagnosis LPRD (laryngopharyngeal reflux disease) Other diseases of larynx Dry mouth Disturbance of salivary secretion Current smoker Tobacco use disorder Abnormal mouth sensation Other and unspecified diseases of the oral soft tissues [facility] Diagnosis Nipple discharge- Primary Other sign and symptom in breast Other systemic lupus erythematosus with other organ involvement (HCC) On prednisone therapy Long-term use of Plaquenil 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-term (current) use of other medications [facility] Diagnosis Hidradenitis suppurativa- Primary Hidradenitis Other seborrheic dermatitis Lupus erythematosus tumidus (CMS/HCC) Rash and other nonspecific skin eruption Capillary angioma Nevus, non-neoplastic Neoplasm of uncertain behavior of skin documented in this [facility]* Diagnosis Sinus tachycardia- Primary Other specified cardiac dysrhythmias Shortness of breath Paroxysmal supraventricular tachycardia (CMS-HCC) Paroxysmal supraventricular tachycardia Essential hypertension Unspecified essential hypertension Obstructive sleep apnea syndrome Obstructive sleep apnea (adult) (pediatric) Morbid obesity (Multi) Morbid obesity Current smoker documented in this encounter [facility] Work Phone: Evaluation note* Diagnosis Elevated sed rate- Primary Elevated sedimentation rate Megaloblastic anemia due to vitamin B12 deficiency Other vitamin B12 deficiency anemia Frequent infections Hypogammaglobulinemia (HCC) Hypogammaglobulinaemia, unspecified Bilateral leg weakness Other musculoskeletal symptoms referable to limbs Discoid lupus erythematosus Lupus erythematosus [facility] Diagnosis Systemic lupus erythematosus with other organ involvement (HCC)- Primary [facility] Diagnosis Vitamin B12 deficiency- Primary Other B-complex deficiencies Other iron deficiency anemia Hypogammaglobulinemia (HCC) Hypogammaglobulinaemia, unspecified [facility]* Diagnosis Other systemic lupus erythematosus with other organ involvement (HCC) [facility] Diagnosis Thyroid nodule (CMS/HCC)- Primary Nontoxic uninodular goiter LPRD (laryngopharyngeal reflux disease) Acute laryngitis, without mention of obstruction documented in [facility]* Diagnosis Hypogammaglobulinemia (HCC)- Primary Hypogammaglobulinaemia, unspecified Vitamin B12 deficiency Other B-complex deficiencies Other iron deficiency anemia Megaloblastic anemia due to vitamin B12 deficiency Other vitamin B12 deficiency anemia [facility] Diagnosis Frequent infections- Primary Hypogammaglobulinemia (HCC) Hypogammaglobulinaemia, unspecified Bilateral leg weakness Other musculoskeletal symptoms referable to limbs Discoid lupus erythematosus Lupus erythematosus Elevated sed rate Elevated sedimentation rate Megaloblastic anemia due to vitamin B12 deficiency Other vitamin B12 deficiency anemia [facility] Diagnosis Other systemic lupus erythematosus with other organ involvement (HCC)- Primary [facility] Diagnosis Other systemic lupus erythematosus with other organ involvement (HCC) [facility] Diagnosis Systemic lupus erythematosus with other organ involvement (HCC)- Primary documented in this [facility] ClinicEvaluation note* Diagnosis Fibromyalgia- Primary Mylagia and myositis, unspecified Family history of disease of aorta Family history of cancer Family history of unspecified malignant neoplasm [facility] Diagnosis Frequent infections- Primary Hypogammaglobulinemia (HCC) Hypogammaglobulinaemia, unspecified Bilateral leg weakness Other musculoskeletal symptoms referable to limbs Discoid lupus erythematosus Lupus erythematosus Elevated sed rate Elevated sedimentation rate Megaloblastic anemia due to vitamin B12 deficiency Other vitamin B12 deficiency anemia Elevated LFTs Other abnormal blood chemistry Anemia of chronic disease Anemia of other chronic disease Elevated C-reactive protein (CRP) Vitamin D deficiency Unspecified vitamin D deficiency [facility] Diagnosis Other systemic lupus erythematosus with other organ involvement (HCC)- Primary [facility] Diagnosis Other systemic lupus erythematosus with other organ involvement (HCC)- Primary Elevated LFTs Other abnormal blood chemistry Anemia of chronic disease Anemia of other chronic disease Elevated sed rate Elevated sedimentation rate Elevated C-reactive protein (CRP) Vitamin B12 deficiency Other B-complex deficiencies Screening-pulmonary TB Screening examination for pulmonary tuberculosis Vitamin D deficiency Unspecified vitamin D deficiency [facility] Diagnosis Other systemic lupus erythematosus with other organ involvement (HCC)- Primary Vitamin D deficiency Unspecified vitamin D deficiency Fibromyalgia Mylagia and myositis, unspecified CHRISTIAN positive Other and unspecified nonspecific immunological findings Elevated sed rate Elevated sedimentation rate Vitamin B12 deficiency Other B-complex deficiencies Secondary osteoarthritis of multiple sites Osteoarthrosis involving, or with mention of more than one site, but not specified as generalized, multiple sites Chronic bilateral low back pain with bilateral sciatica Chronic pain of toes of both feet 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-term (current) use of steroids Bilateral hand pain Pain in limb Family history of Crohn's disease Family history of other digestive disorders 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 Bilateral wrist pain 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, forearm documented in this encounter [facility] general Narrative - Reported* Type Description Date Medical History hyperlipidemia Medical History insulin resistance Medical History CMV Surgical History cyst removal pilonidal Surgical History D&C Hospitalization History [email or web address] Other Hospital Discharge instructionsAmbulatory Orders* Referral to Gastroenterology Location: None Selected [facility] Work Phone: InstructionsNot on filedocumented in this encounter [facility] Diagnostic Procedure Only (Routine) - Pending Review Specialty Diagnoses / Procedures Referred By Nahid tran Referred To Contact XR IMAGING Diagnoses Steroid-induced osteoporosis Procedures DXA-FOREARM SKELETON DXA BONE DENSITY STUDY 1/SITES APPENDICLR Lynne Perera MD [address] [place] [address] [place] [address] Referral ID Status Reason Start Date Expiration Date Visits Requested Visits Authorized [id number] Pending Review Auto-Generat ed Referral 02/04/2023 03/05/2024 1 1 [facility] for referral (narrative)* Consultation (Routine) - Authorized Specialty Diagnoses / Procedures Referred By Nahid tran Referred To Contact Cardiology Diagnoses Irregular heart rate Essential hypertension Autonomic dysfunction Obstructive sleep apnea syndrome Primary hypertension Procedures Follow Up In Cardiology Michelle Jasmine APRN-MRI TECHNICIAN [address] [facility] [address] [place] [address] Aurora Patel MD [address] [facility] [facility] [address] [place] [address] Referral ID Status Reason Start Date Expiration Date V isits Requested Visits Authorized [id number] Authorized 06/09/2023 06/08/2024 1 1 * Cardiovascular (Routine) - Pending Review Specialty Diagnoses / Procedures Referred By Contac t Referred To Contact Cardiology Diagnoses Irregular heart rate Procedures Holter Or Event Housing 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 [facility] [address] [facility] [address] [place] [address] Referral ID Status Reason Start Date Expiration Date V isits Requested Visits Authorized Pending Review 06/09/2023 06/08/2024 1 1 Electronically signed by Michelle [facility]asmine [facility] at 06/09/2023 9:43 AM EST * CV Imaging (Routine) - Pending Review Specialty Diagnoses / Procedures Referred By Contac t Referred To Contact Cardiology Diagnoses Irregular heart rate Obstructive sleep apnea syndrome Procedures Transthoracic Echo (TTE) Complete [place] ECHO TTHRC R-T 2D W/WOM-MODE COMPL SPEC&COLR D Michelle [facility] [address] [facility] [address] [place] [address] Referral ID Status Reason Start Date Expiration Date Visits Requested Visits Authorized Pending Review Perform Procedure 06/09/2023 06/08/2024 1 1 Electronically signed by Michelle Jasmine [facility] at 06/09/2023 9:43 AM EST * Cardiovascular (Routine) - Authorized Specialty Diagnoses / Procedures Referred By Contac t Referred To Contact Diagnoses Irregular heart rate Procedures ECG 12 Lead Michelle Jasmine APRN-CNP [address] [facility] [address] [place] [address] Referral ID Status Reason Start Date Expiration Date V isits Requested Visits Authorized Authorized 06/09/2023 06/08/2024 1 1 Electronically signed by Michelle Jasmine [facility] at 06/09/2023 8:[address] [facility] Work Phone: Reason for referral (narrative)* Consultation (Routine) - Pending Review Specialty Diagnoses / Procedures Referred By Contac t Referred To Contact Pain Medicine Diagnoses Lumbosacral radiculopathy at L5 Degenerative disc disease, lumbar Procedures [place] OFFICE/OUTPATIENT NEW HIGH MDM 60 MINUTES Kade Richardson MD [address] [place] [id number] Adolfo Kang MD [address] [address] Referral ID Status Reason Start Date Expiration Date Visits Requested Visits Authorized [id number] Pending Review Specialty Services Required 01/20/2024 07/18/2024 1 1 [facility] for visit Narrative* [place] Prior Authorization (Routine) - Authorized Specialty Diagnoses / Procedures Referred By Contac t Referred To Contact Diagnoses Frequent infections Hypogammaglobulinemia (HCC) Bilateral leg weakness Discoid lupus erythematosus Procedures GAMMAGARD LIQUID INJECTION Vera Najera MD [address] [facility] [place] [address] Phone: tel: fax: Hematology/Oncology [address] [place] [address] [place] [address] Phone: tel: fax: Referral ID Status Reason Start Date Expiration Date V isits Requested Visits Authorized [id number] Authorized 04/03/2024 10/01/2024 7 7 [facility] for visit Narrative* [place] Prior Authorization (Routine) - Authorized Specialty Diagnoses / Procedures Referred By Contac t Referred To Contact Diagnoses Other systemic lupus erythematosus with other organ involvement (HCC) Procedures BELIMUMAB INJECTION Lynne Ni MD [address] [place] [address] Phone: tel: fax: Lynne Ni MD [address] [place] [address] Phone: tel: fax: Referral ID Status Reason Start Date Expiration Date V isits Requested Visits Authorized [id number] Authorized 09/08/2024 03/10/2025 8 8 [facility] for visit Narrative* [place] Prior Authorization (Routine) - Authorized Specialty Diagnoses / Procedures Referred By Contac t Referred To Contact Diagnoses Other iron deficiency anemia Procedures IRON SUCROSE INJECTION PER 1 MG Vaibhav Carvalho APRN.MRI TECHNICIAN [address] [facility] [place] [address] Phone: tel: fax: Hematology/Oncology [address] [facility] [place] [address] Phone: tel: fax: Referral ID Status Reason Start Date Expiration Date V isits Requested Visits Authorized [id number] Authorized 06/16/2024 05/23/2025 99 99 [facility] Summary Purpose Family History Relationship Condition Age at Onset Recorded Date/T michelle father Unknown Malignant neoplasm Unknown Relationship Condition Age at Onset Recorded Date/T michelle father Malignant neoplasm of stomach Unknown Unknown mother Crohn's disease Unknown Advance Directives Documents on File Type Date Recorded Patient Cna Gna Expl anation ACP-Advance Directive ACP-Power of Sole Conditioner Latest Code Status on File Code Status Date Activated Date Inactivated Comments Full Code 10/07/2020 8:32 AM Documents on File Type Date Recorded Patient Cna Gna Expl anation Advance Directive(s) 09/13/2015 8:36 AM Advance Directive Response Recorded Date/ Time Advance Directives No September 17 2:40pm Advance Directive Response Recorded Date/ Time Advance Directives No September 17 1:40pm Reason for Referral Specialty Diagnoses / Procedures Referred By Contac t Referred To Contact Infectious Diseases Diagnoses Positive blood cultures Procedures CONSULT TO INFECTIOUS DISEASES OFFICE/OUTPATIENT [facility] 60 MINUTES Vaibhav Carvalho APRN.MRI TECHNICIAN [address] [facility] [place] [address] Referral ID Status Reason Start Date Expiration Date Visits Requested Visits Authorized [id number] Authorized PCP Requested Referral 06/13/2024 06/13/2025 1 1 Specialty Diagnoses / Procedures Referred By Contac t Referred To Contact Diagnoses Paroxysmal supraventricular tachycardia PAC (premature atrial contraction) Procedures ECG 12 Lead Lois Holm MD [address] [facility] 2, [address] [place] [address] Referral ID Status Reason Start Date Expiration Date V isits Requested Visits Authorized [id number] Authorized 07/13/2023 07/12/2024 1 1 Specialty Diagnoses / Procedures Referred By Contac t Referred To Contact Cardiology Diagnoses Shortness of breath Paroxysmal supraventricular tachycardia PAC (premature atrial contraction) Procedures Follow Up In Cardiology Lois Holm MD [address] [facility] 2, [address] [address] Lois Holm MD [address] [facility] 2, [facility] [address] [place] [address] Referral ID Status Reason Start Date Expiration Date V isits Requested Visits Authorized [id number] Authorized 07/13/2023 07/12/2024 1 1 Specialty Diagnoses / Procedures Referred By Contac t Referred To Contact Diagnoses Obesity, Class III, BMI 40-49.9 (morbid obesity) (HCC) Pre-diabetes Christie Phan MD [address] [place] [address] Referral ID Status Reason Start Date Expiration Date Visits Re quested Visits Authorized [id number] Closed 1 1 Specialty Diagnoses / Procedures Referred By Contac t Referred To Contact Diagnoses Wound healing, delayed Procedures CONSULT TO MEDICAL GENETICS - GENERAL OFFICE/OUTPATIENT [facility] 60-74 MINUTES MEDICAL GENETICS COUNSELING EACH 30 MINUTES Misty Nelson MD [address] [place] [address] [facility] [place] [address] [place] [address] Referral ID Status Reason Start Date Expiration Date Visits Requested Visits Authorized [id number] Authorized PCP Requested Referral Auto-Generate d Referral 2 03/10/2023 1 1 Specialty Diagnoses / Procedures Referred By Contac t Referred To Contact Neurology Diagnoses POTS (postural orthostatic tachycardia syndrome) Procedures CONSULT TO NEUROLOGY OFFICE/OUTPATIENT [facility] 60-74 MINUTES Christie Phan MD [address] [place], [place] [id number] Referral ID Status Reason Start Date Expiration Date Visits Requested Visits Authorized [id number] Authorized PCP Requested Referral 2 03/12/2023 1 1 Specialty Diagnoses / Procedures Referred By Contac t Referred To Contact Immunology Diagnoses Raised level of immunoglobulins Procedures CONSULT TO IMMUNOLOGY OFFICE/OUTPATIENT [facility] 60-74 MINUTES Christie Phan MD [address] [place] [address] Referral ID Status Reason Start Date Expiration Date V isits Requested Visits Authorized [id number] Closed PCP Requested Referral 03/09/2022 03/09/2023 1 1 Specialty Diagnoses / Procedures Referred By Contac t Referred To Contact [facility] Diagnoses Somnolence, daytime Snoring Procedures HOME SLEEP APNEA TEST (HSAT) SLEEP STD AIRFLOW HRT RATE&O2 SAT EFFORT UNATT Christie Phan MD [address] [place] [address] [facility] [address] [place] [address] Referral ID Status Reason Start Date Expiration Date Visits Requested Visits Authorized [id number] Authorized Auto-Generat ed Referral 2 03/09/2023 1 1 Specialty Diagnoses / Procedures Referred By Contac t Referred To Contact Diagnoses Somnolence, daytime Chronic fatigue and malaise Obesity, unspecified classification, unspecified obesity type, unspecified whether serious comorbidity present Procedures CONSULT TO LIFESTYLE MEDICINE MD OFFICE/OUTPATIENT [facility] 60-74 MINUTES Vera Najera MD [address] [place] [address] [place] [address] Referral ID Status Reason Start Date Expiration Date V isits Requested Visits Authorized [id number] Closed PCP Requested Referral 03/04/2022 03/04/2023 1 1 Specialty Diagnoses / Procedures Referred By Contac t Referred To Contact Diagnoses Somnolence, daytime Snoring Procedures CONSULT TO SLEEP MEDICINE - ADULT OFFICE/OUTPATIENT [facility] 60-74 MINUTES Vera Najera MD [address] [place], [place] [address] [address] Referral ID Status Reason Start Date Expiration Date Visits Requested Visits Authorized [id number] Authorized PCP Requested Referral 2 03/04/2023 1 [...] for Visit Admit Date Lumbosacral spondylosis July 10, 025 3:16pm Other chronic pain July 10, [...] Back Pain Back Pain FOLLOW UP AFTER SELENE SI Reason for Visit Nipple discharge in female Recurrent Clostridioides difficile diarrhea Lumbosacral spondylosis Other chronic pain Sacroiliitis Lumbosacral spondylosis Other chronic pain Sacroiliitis Chief Complaint REFF BY DR. JOSUE RICHARDSON Back Pain Back Pain FOLLOW UP AFTER SELENE SI f/u Abdominal pain. Reason for Visit Lumbosacral spondylo sis Other chronic pain Sacroiliitis Lumbosacral spondylosis Other chronic pain Sacroiliitis Chief Complaint Admit Date back pain July 10, 2024 3:16pm Chief Complaint Admit Date back pain July 10, 2024 3:16pm Back Pain July 19, 2024 9:40am Back Pain July 19, 2024 11:04am FOLLOW UP AFTER SELENE SI July 31, 2024 3:40pm Reason for Visit Admit Date Lumbosacral spondylosis July 10, 2 025 3:16pm Other chronic pain July 10, 2024 3:16pm Sacroiliitis July 10, 2024 3:16pm Lumbosacral spondylosis July 31, 2024 3:40pm Other chronic pain July 31, 2024 3:4 0pm Sacroiliitis July 31, 2024 3:4 0pm Chief Complaint Admit Date back pain July 10, 2024 3:16pm Back Pain July 19, 2024 9:40am Back Pain July 19, 2024 11:04am FOLLOW UP AFTER SELENE SI July 31, 2024 3:40pm selene L3,4,5 lumbar facet MBB August 22 2 025 1:25pm Additional Source Comments INFORMATION SOURCE (unrecogn ized section and content) DATE CREATED AUTHOR 09/20/2018 [facility] DATE CREATED AUTHOR AUTHOR'S ORGANIZ ATION 12/10/2018 [facility] DATE CREATED AUTHOR AUTHOR'S ORGANIZ ATION 01/13/2019 [facility] DATE CREATED AUTHOR AUTHOR'S ORGANIZ ATION 06/28/2021 [facility] DATE CREATED AUTHOR AUTHOR'S ORGANIZ ATION 10/01/2022 [facility] DATE CREATED AUTHOR AUTHOR'S ORGANIZ ATION 03/10/2024 [facility] DATE CREATED AUTHOR AUTHOR'S ORGANIZ ATION 07/22/2024 [facility] DATE CREATED AUTHOR AUTHOR'S ORGANIZ ATION 07/28/2024 [facility] DATE CREATED AUTHOR AUTHOR'S ORGANIZ ATION 08/15/2024 [facility] DATE CREATED AUTHOR AUTHOR'S ORGANIZ ATION 09/05/2024 [facility] DATE CREATED AUTHOR AUTHOR'S ORGANIZ ATION 10/05/2024 [facility] Reason for Visit (unrecogniz ed section and content) Reason Comments Infection Follow Up Specialty Diagnoses / Procedures Referred By Contac t Referred To Contact Infectious Diseases Diagnoses Positive blood cultures Procedures CONSULT TO INFECTIOUS DISEASES OFFICE/OUTPATIENT NEW HIGH MDM 60 MINUTES Vaibhav Carvalho APRN.MRI TECHNICIAN [address] [facility] [place] [address] Phone: tel: fax: Referral ID Status Reason Start Date Expiration Date V isits Requested Visits Authorized [id number] Closed PCP Requested Referral 06/13/2024 06/13/2025 1 1 Status Reason Specialty Diagnoses / Procedures Referre d By Contact Referred To Contact [employer] Reason Comments Pain ongoing generalized pain. Reason [...] MDM 60-74 MINUTES Vera Najera MD [address] [facility] [place] [address] Referral ID Status Reason Start Date Expiration Date V isits Requested Visits Authorized [id number] Closed PCP Requested Referral 03/04/2022 03/04/2023 1 1 Reason Comments High Total serum IgM Anemia Reason Comments Consult Specialty Diagnoses / Procedures Referred By Contac t Referred To Contact Immunology Diagnoses Raised level of immunoglobulins Procedures CONSULT TO IMMUNOLOGY OFFICE/OUTPATIENT NEW HIGH MDM 60-74 MINUTES Christie Phan MD [address] [place] [address] Referral ID Status Reason Start Date Expiration Date V isits Requested Visits Authorized [id number] Closed PCP Requested Referral 03/09/2022 03/09/2023 1 1 Reason Comments Pneumovax Reason Comments Refill Request Reason Comments 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 Reason Comments Future Appointment [...] rate Procedures ECG 12 Lead Michelle Jasmine, ANIMATION DIRECTOR-MRI TECHNICIAN [address] [facility] [address] [place] [address] Referral ID Status Reason Start Date Expiration Date V isits Requested Visits Authorized [id number] Authorized 06/09/2023 06/08/2024 1 1 Reason Comments New Patient Visit Leg Swelling, test r esults from [place] Specialty Diagnoses / Procedures Referred By Contac t Referred To Contact Diagnoses Paroxysmal supraventricular tachycardia PAC (premature atrial contraction) Procedures ECG 12 Lead Lois Holm MD [address] [facility] 2, [address] [place] [address] Referral ID Status Reason Start Date Expiration Date V isits Requested Visits Authorized [id number] Authorized 07/13/2023 07/12/2024 1 1 Reason Onset [...] Reason Comments Orders PAP RX. 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 Reason Comments Med [...] By Nahid tran Referred To Contact Diagnoses Frequent infections Hypogammaglobulinemia (HCC) Bilateral leg weakness Discoid lupus erythematosus Procedures GAMMAGARD LIQUID INJECTION Vera Najera MD [address] [place] [address] [place] [address] [facility] [place] [address] [place] [address] Referral ID Status Reason Start Date Expiration Date V isits Requested Visits Authorized [id number] Authorized 04/03/2024 10/01/2024 7 7 Reason Comments [...] Referred By Nahid t Referred To Contact Vascular Surgery Diagnoses Cold extremities Pain of lower extremity, unspecified laterality Gay Enciso, ANIMATION DIRECTOR-MRI TECHNICIAN [address] [facility] [place] [address] Phone: tel:[phone] fax: Hayden Arciniega MD [address] [place] [address] Phone: tel:[phone] fax: Referral ID Status Reason Start Date Expiration Date Visits Requested Visits Authorized [id number] Pending Review Specialty Services Required 03/15/2025 1 1 Reason Comments Mouth/Lip Problem Since February Reason Onset Date Comments SPP Inflammatory Conditions - Medication Refill 07/25/2024 Benlysta Reason Comments Follow-up Skin Check Reason Comments Annual Exam Specialty Diagnoses / Procedures Referred By Nahid tran Referred To Contact Cardiology Diagnoses Shortness of breath Paroxysmal supraventricular tachycardia (CMS-HCC) PAC (premature atrial contraction) Procedures Follow Up In Cardiology Lois Holm MD [address] [place] [address], [address] [address] Phone: tel: fax: Lois Holm MD [address] [place] [address] [address], [address] [address] Phone: tel: fax: Referral ID Status Reason Start Date Expiration Date V isits Requested Visits Authorized [id number] Authorized 07/13/2023 07/12/2024 1 1 Reason Comments Med Change Request Reason Comments Patient Question Reason Onset Date Comments SPP Inflammatory Conditions - Medication Refill 08/17/2024 Benlysta Reason Onset Date Comments Refill Request 09/01/2024 Reason Comments Thyroid Nodule Follow up ultrasound [facility] 08/24/24 Reason Comments Megaloblastic anemia due to vitamin B12 deficiency Treatment visit Reason Onset Date Comments Results 09/07/2024 Reason Comments Medication Preauthorization Appointment Reason Comments Future Appointment Reason Onset Date Comments SPP Inflammatory Conditions - Medication Refill 09/20/2024 Benlysta Reason Comments Joint Pain Reason Comments Patient Update Appointment Reason Comments SLE Osteoarthritis Ordered Prescriptions (unrec ognized section and content) [...] or prosecute any alcohol or drug abuse patient.[facility] the event this information is protected by the Federal Confidentiality of Alcohol and Drug Abuse Patient Records regulations: The Federal rules restrict any use of the information to criminally investigate or prosecute any alcohol or drug abuse patient.[facility] Hospital[facility] the event this information is protected by the Federal Confidentiality of Alcohol and Drug Abuse Patient Records regulations: The Federal rules restrict any use of the information to criminally investigate or prosecute any alcohol or drug abuse patient.[facility] Hospital[facility] the event this information is protected by the Federal Confidentiality of Alcohol and Drug Abuse Patient Records regulations: The Federal rules restrict any use of the information to criminally investigate or prosecute any alcohol or drug abuse patient.[facility] the event this information is protected by the Federal Confidentiality of Alcohol and Drug Abuse Patient Records regulations: The Federal rules restrict any use of the information to criminally investigate or prosecute any alcohol or drug abuse patient.[facility] HospitalIn the event this information is protected by the Federal Confidentiality of Alcohol and Drug Abuse Patient Records regulations: The Federal rules restrict any use of the information to criminally investigate or prosecute any alcohol or drug abuse patient.[facility] HospitalIn the event this information is protected by the Federal Confidentiality of Alcohol and Drug Abuse Patient Records regulations: The Federal rules restrict any use of the information to criminally investigate or prosecute any alcohol or drug abuse patient.[facility] the event this information is protected by the Federal Confidentiality of Alcohol and Drug Abuse Patient Records regulations: The Federal rules restrict any use of the information to criminally investigate or prosecute any alcohol or drug abuse patient.[facility] HospitalIn the event this information is protected by the Federal Confidentiality of Alcohol and Drug Abuse Patient Records regulations: The Federal rules restrict any use of the information to criminally investigate or prosecute any alcohol or drug abuse patient.[facility] HospitalIn the event this information is protected by the Federal Confidentiality of Alcohol and Drug Abuse Patient Records regulations: The Federal rules restrict any use of the information to criminally investigate or prosecute any alcohol or drug abuse patient.[facility] HospitalIn the event this information is protected by the Federal Confidentiality of Alcohol and Drug Abuse Patient Records regulations: The Federal rules restrict any use of the information to criminally investigate or prosecute any alcohol or drug abuse patient.[facility] HospitalIn the event this information is protected by the Federal Confidentiality of Alcohol and Drug Abuse Patient Records regulations: The Federal rules restrict any use of the information to criminally investigate or prosecute any alcohol or drug abuse patient.[facility] HospitalIn the event this information is protected by the Federal Confidentiality of Alcohol and Drug Abuse Patient Records regulations: The Federal rules restrict any use of the information to criminally investigate or prosecute any alcohol or drug abuse patient.[facility] HospitalIn the event this information is protected by the Federal Confidentiality of Alcohol and Drug Abuse Patient Records regulations: The Federal rules restrict any use of the information to criminally investigate or prosecute any alcohol or drug abuse patient.[facility] HospitalIn the event this information is protected by the Federal Confidentiality of Alcohol and Drug Abuse Patient Records regulations: The Federal rules restrict any use of the information to criminally investigate or prosecute any alcohol or drug abuse patient.[facility] HospitalIn the event this information is protected by the Federal Confidentiality of Alcohol and Drug Abuse Patient Records regulations: The Federal rules restrict any use of the information to criminally investigate or prosecute any alcohol or drug abuse patient.[facility] HospitalIn the event this information is protected by the Federal Confidentiality of Alcohol and Drug Abuse Patient Records regulations: The Federal rules restrict any use of the information to criminally investigate or prosecute any alcohol or drug abuse patient.[facility] HospitalIn the event this information is protected by the Federal Confidentiality of Alcohol and Drug Abuse Patient Records regulations: The Federal rules restrict any use of the information to criminally investigate or prosecute any alcohol or drug abuse patient.[facility] HospitalIn the event this information is protected by the Federal Confidentiality of Alcohol and Drug Abuse Patient Records regulations: The Federal rules restrict any use of the information to criminally investigate or prosecute any alcohol or drug abuse patient.[facility] HospitalIn the event this information is protected by the Federal Confidentiality of Alcohol and Drug Abuse Patient Records regulations: The Federal rules restrict any use of the information to criminally investigate or prosecute any alcohol or drug abuse patient.[facility] HospitalIn the event this information is protected by the Federal Confidentiality of Alcohol and Drug Abuse Patient Records regulations: The Federal rules restrict any use of the information to criminally investigate or prosecute any alcohol or drug abuse patient.[facility] HospitalIn the event this information is protected by the Federal Confidentiality of Alcohol and Drug Abuse Patient Records regulations: The Federal rules restrict any use of the information to criminally investigate or prosecute any alcohol or drug abuse patient.[facility] HospitalIn the event this information is protected by the Federal Confidentiality of Alcohol and Drug Abuse Patient Records regulations: The Federal rules restrict any use of the information to criminally investigate or prosecute any alcohol or drug abuse patient.[facility] HospitalIn the event this information is protected by the Federal Confidentiality of Alcohol and Drug Abuse Patient Records regulations: The Federal rules restrict any use of the information to criminally investigate or prosecute any alcohol or drug abuse patient.[facility] HospitalIn the event this information is protected by the Federal Confidentiality of Alcohol and Drug Abuse Patient Records regulations: The Federal rules restrict any use of the information to criminally investigate or prosecute any alcohol or drug abuse patient.[facility] HospitalIn the event this information is protected by the Federal Confidentiality of Alcohol and Drug Abuse Patient Records regulations: The Federal rules restrict any use of the information to criminally investigate or prosecute any alcohol or drug abuse patient.[facility] HospitalIn the event this information is protected by the Federal Confidentiality of Alcohol and Drug Abuse Patient Records regulations: The Federal rules restrict any use of the information to criminally investigate or prosecute any alcohol or drug abuse patient.[facility] HospitalIn the event this information is protected by the Federal Confidentiality of Alcohol and Drug Abuse Patient Records regulations: The Federal rules restrict any use of the information to criminally investigate or prosecute any alcohol or drug abuse patient.[facility] HospitalIn the event this information is protected by the Federal Confidentiality of Alcohol and Drug Abuse Patient Records regulations: The Federal rules restrict any use of the information to criminally investigate or prosecute any alcohol or drug abuse patient.[facility] HospitalIn the event this information is protected by the Federal Confidentiality of Alcohol and Drug Abuse Patient Records regulations: The Federal rules restrict any use of the information to criminally investigate or prosecute any alcohol or drug abuse patient.[facility] HospitalIn the event this information is protected by the Federal Confidentiality of Alcohol and Drug Abuse Patient Records regulations: The Federal rules restrict any use of the information to criminally investigate or prosecute any alcohol or drug abuse patient.[facility] HospitalIn the event this information is protected by the Federal Confidentiality of Alcohol and Drug Abuse Patient Records regulations: The Federal rules restrict any use of the information to criminally investigate or prosecute any alcohol or drug abuse patient.[facility] HospitalIn the event this information is protected by the Federal Confidentiality of Alcohol and Drug Abuse Patient Records regulations: The Federal rules restrict any use of the information to criminally investigate or prosecute any alcohol or drug abuse patient.[facility] HospitalIn the event this information is protected by the Federal Confidentiality of Alcohol and Drug Abuse Patient Records regulations: The Federal rules restrict any use of the information to criminally investigate or prosecute any alcohol or drug abuse patient.[facility] HospitalIn the event this information is protected by the Federal Confidentiality of Alcohol and Drug Abuse Patient Records regulations: The Federal rules restrict any use of the information to criminally investigate or prosecute any alcohol or drug abuse patient.[facility] HospitalIn the event this information is protected by the Federal Confidentiality of Alcohol and Drug Abuse Patient Records regulations: The Federal rules restrict any use of the information to criminally investigate or prosecute any alcohol or drug abuse patient.[facility] HospitalIn the event this information is protected by the Federal Confidentiality of Alcohol and Drug Abuse Patient Records regulations: The Federal rules restrict any use of the information to criminally investigate or prosecute any alcohol or drug abuse patient.[facility] HospitalIn the event this information is protected by the Federal Confidentiality of Alcohol and Drug Abuse Patient Records regulations: The Federal rules restrict any use of the information to criminally investigate or prosecute any alcohol or drug abuse patient.[facility] HospitalIn the event this information is protected by the Federal Confidentiality of Alcohol and Drug Abuse Patient Records regulations: The Federal rules restrict any use of the information to criminally investigate or prosecute any alcohol or drug abuse patient.[facility] HospitalIn the event this information is protected by the Federal Confidentiality of Alcohol and Drug Abuse Patient Records regulations: The Federal rules restrict any use of the information to criminally investigate or prosecute any alcohol or drug abuse patient.[facility] HospitalIn the event this information is protected by the Federal Confidentiality of Alcohol and Drug Abuse Patient Records regulations: The Federal rules restrict any use of the information to criminally investigate or prosecute any alcohol or drug abuse patient.[facility] HospitalIn the event this information is protected by the Federal Confidentiality of Alcohol and Drug Abuse Patient Records regulations: The Federal rules restrict any use of the information to criminally investigate or prosecute any alcohol or drug abuse patient.[facility] HospitalIn the event this information is protected by the Federal Confidentiality of Alcohol and Drug Abuse Patient Records regulations: The Federal rules restrict any use of the information to criminally investigate or prosecute any alcohol or drug abuse patient.[facility] HospitalIn the event this information is protected by the Federal Confidentiality of Alcohol and Drug Abuse Patient Records regulations: The Federal rules restrict any use of the information to criminally investigate or prosecute any alcohol or drug abuse patient.[facility] HospitalIn the event this information is protected by the Federal Confidentiality of Alcohol and Drug Abuse Patient Records regulations: The Federal rules restrict any use of the information to criminally investigate or prosecute any alcohol or drug abuse patient.[facility] HospitalIn the event this information is protected by the Federal Confidentiality of Alcohol and Drug Abuse Patient Records regulations: The Federal rules restrict any use of the information to criminally investigate or prosecute any alcohol or drug abuse patient.[facility] HospitalIn the event this information is protected by the Federal Confidentiality of Alcohol and Drug Abuse Patient Records regulations: The Federal rules restrict any use of the information to criminally investigate or prosecute any alcohol or drug abuse patient.[facility] HospitalIn the event this information is protected by the Federal Confidentiality of Alcohol and Drug Abuse Patient Records regulations: The Federal rules restrict any use of the information to criminally investigate or prosecute any alcohol or drug abuse patient.[facility] HospitalIn the event this information is protected by the Federal Confidentiality of Alcohol and Drug Abuse Patient Records regulations: The Federal rules restrict any use of the information to criminally investigate or prosecute any alcohol or drug abuse patient.[facility] HospitalIn the event this information is protected by the Federal Confidentiality of Alcohol and Drug Abuse Patient Records regulations: The Federal rules restrict any use of the information to criminally investigate or prosecute any alcohol or drug abuse patient.[facility] HospitalIn the event this information is protected by the Federal Confidentiality of Alcohol and Drug Abuse Patient Records regulations: The Federal rules restrict any use of the information to criminally investigate or prosecute any alcohol or drug abuse patient.[facility] HospitalIn the event this information is protected by the Federal Confidentiality of Alcohol and Drug Abuse Patient Records regulations: The Federal rules restrict any use of the information to criminally investigate or prosecute any alcohol or drug abuse patient.[facility] HospitalIn the event this information is protected by the Federal Confidentiality of Alcohol and Drug Abuse Patient Records regulations: The Federal rules restrict any use of the information to criminally investigate or prosecute any alcohol or drug abuse patient.[facility] HospitalIn the event this information is protected by the Federal Confidentiality of Alcohol and Drug Abuse Patient Records regulations: The Federal rules restrict any use of the information to criminally investigate or prosecute any alcohol or drug abuse patient.[facility] HospitalIn the event this information is protected by the Federal Confidentiality of Alcohol and Drug Abuse Patient Records regulations: The Federal rules restrict any use of the information to criminally investigate or prosecute any alcohol or drug abuse patient.[facility] HospitalIn the event this information is protected by the Federal Confidentiality of Alcohol and Drug Abuse Patient Records regulations: The Federal rules restrict any use of the information to criminally investigate or prosecute any alcohol or drug abuse patient.[facility] HospitalIn the event this information is protected by the Federal Confidentiality of Alcohol and Drug Abuse Patient Records regulations: The Federal rules restrict any use of the information to criminally investigate or prosecute any alcohol or drug abuse patient.[facility] HospitalIn the event this information is protected by the Federal Confidentiality of Alcohol and Drug Abuse Patient Records regulations: The Federal rules restrict any use of the information to criminally investigate or prosecute any alcohol or drug abuse patient.[facility] HospitalIn the event this information is protected by the Federal Confidentiality of Alcohol and Drug Abuse Patient Records regulations: The Federal rules restrict any use of the information to criminally investigate or prosecute any alcohol or drug abuse patient.[facility] HospitalIn the event this information is protected by the Federal Confidentiality of Alcohol and Drug Abuse Patient Records regulations: The Federal rules restrict any use of the information to criminally investigate or prosecute any alcohol or drug abuse patient.[facility] HospitalIn the event this information is protected by the Federal Confidentiality of Alcohol and Drug Abuse Patient Records regulations: The Federal rules restrict any use of the information to criminally investigate or prosecute any alcohol or drug abuse patient.[facility] HospitalIn the event this information is protected by the Federal Confidentiality of Alcohol and Drug Abuse Patient Records regulations: The Federal rules restrict any use of the information to criminally investigate or prosecute any alcohol or drug abuse patient.[facility] HospitalIn the event this information is protected by the Federal Confidentiality of Alcohol and Drug Abuse Patient Records regulations: The Federal rules restrict any use of the information to criminally investigate or prosecute any alcohol or drug abuse patient.[facility] HospitalIn the event this information is protected by the Federal Confidentiality of Alcohol and Drug Abuse Patient Records regulations: The Federal rules restrict any use of the information to criminally investigate or prosecute any alcohol or drug abuse patient.[facility] HospitalIn the event this information is protected by the Federal Confidentiality of Alcohol and Drug Abuse Patient Records regulations: The Federal rules restrict any use of the information to criminally investigate or prosecute any alcohol or drug abuse patient.[facility] HospitalIn the event this information is protected by the Federal Confidentiality of Alcohol and Drug Abuse Patient Records regulations: The Federal rules restrict any use of the information to criminally investigate or prosecute any alcohol or drug abuse patient.[facility] HospitalIn the event this information is protected by the Federal Confidentiality of Alcohol and Drug Abuse Patient Records regulations: The Federal rules restrict any use of the information to criminally investigate or prosecute any alcohol or drug abuse patient.[facility] HospitalIn the event this information is protected by the Federal Confidentiality of Alcohol and Drug Abuse Patient Records regulations: The Federal rules restrict any use of the information to criminally investigate or prosecute any alcohol or drug abuse patient.[facility] HospitalIn the event this information is protected by the Federal Confidentiality of Alcohol and Drug Abuse Patient Records regulations: The Federal rules restrict any use of the information to criminally investigate or prosecute any alcohol or drug abuse patient.[facility] HospitalIn the event this information is protected by the Federal Confidentiality of Alcohol and Drug Abuse Patient Records regulations: The Federal rules restrict any use of the information to criminally investigate or prosecute any alcohol or drug abuse patient.[facility] HospitalIn the event this information is protected by the Federal Confidentiality of Alcohol and Drug Abuse Patient Records regulations: The Federal rules restrict any use of the information to criminally investigate or prosecute any alcohol or drug abuse patient.[facility] HospitalIn the event this information is protected by the Federal Confidentiality of Alcohol and Drug Abuse Patient Records regulations: The Federal rules restrict any use of the information to criminally investigate or prosecute any alcohol or drug abuse patient.[facility] HospitalIn the event this information is protected by the Federal Confidentiality of Alcohol and Drug Abuse Patient Records regulations: The Federal rules restrict any use of the information to criminally investigate or prosecute any alcohol or drug abuse patient.[facility] HospitalIn the event this information is protected by the Federal Confidentiality of Alcohol and Drug Abuse Patient Records regulations: The Federal rules restrict any use of the information to criminally investigate or prosecute any alcohol or drug abuse patient.[facility] HospitalIn the event this information is protected by the Federal Confidentiality of Alcohol and Drug Abuse Patient Records regulations: The Federal rules restrict any use of the information to criminally investigate or prosecute any alcohol or drug abuse patient.[facility] HospitalIn the event this information is protected by the Federal Confidentiality of Alcohol and Drug Abuse Patient Records regulations: The Federal rules restrict any use of the information to criminally investigate or prosecute any alcohol or drug abuse patient.[facility] HospitalIn the event this information is protected by the Federal Confidentiality of Alcohol and Drug Abuse Patient Records regulations: The Federal rules restrict any use of the information to criminally investigate or prosecute any alcohol or drug abuse patient.[facility] HospitalIn the event this information is protected by the Federal Confidentiality of Alcohol and Drug Abuse Patient Records regulations: The Federal rules restrict any use of the information to criminally investigate or prosecute any alcohol or drug abuse patient.[facility] HospitalIn the event this information is protected by the Federal Confidentiality of Alcohol and Drug Abuse Patient Records regulations: The Federal rules restrict any use of the information to criminally investigate or prosecute any alcohol or drug abuse patient.[facility] HospitalIn the event this information is protected by the Federal Confidentiality of Alcohol and Drug Abuse Patient Records regulations: The Federal rules restrict any use of the information to criminally investigate or prosecute any alcohol or drug abuse patient.[facility] HospitalIn the event this information is protected by the Federal Confidentiality of Alcohol and Drug Abuse Patient Records regulations: The Federal rules restrict any use of the information to criminally investigate or prosecute any alcohol or drug abuse patient.[facility] HospitalIn the event this information is protected by the Federal Confidentiality of Alcohol and Drug Abuse Patient Records regulations: The Federal rules restrict any use of the information to criminally investigate or prosecute any alcohol or drug abuse patient.[facility] HospitalIn the event this information is protected by the Federal Confidentiality of Alcohol and Drug Abuse Patient Records regulations: The Federal rules restrict any use of the information to criminally investigate or prosecute any alcohol or drug abuse patient.[facility] HospitalIn the event this information is protected by the Federal Confidentiality of Alcohol and Drug Abuse Patient Records regulations: The Federal rules restrict any use of the information to criminally investigate or prosecute any alcohol or drug abuse patient.[facility] HospitalIn the event this information is protected by the Federal Confidentiality of Alcohol and Drug Abuse Patient Records regulations: The Federal rules restrict any use of the information to criminally investigate or prosecute any alcohol or drug abuse patient.[facility] HospitalIn the event this information is protected by the Federal Confidentiality of Alcohol and Drug Abuse Patient Records regulations: The Federal rules restrict any use of the information to criminally investigate or prosecute any alcohol or drug abuse patient.[facility] HospitalIn the event this information is protected by the Federal Confidentiality of Alcohol and Drug Abuse Patient Records regulations: The Federal rules restrict any use of the information to criminally investigate or prosecute any alcohol or drug abuse patient.[facility] HospitalIn the event this information is protected by the Federal Confidentiality of Alcohol and Drug Abuse Patient Records regulations: The Federal rules restrict any use of the information to criminally investigate or prosecute any alcohol or drug abuse patient.[facility] HospitalIn the event this information is protected by the Federal Confidentiality of Alcohol and Drug Abuse Patient Records regulations: The Federal rules restrict any use of the information to criminally investigate or prosecute any alcohol or drug abuse patient.[facility] HospitalIn the event this information is protected by the Federal Confidentiality of Alcohol and Drug Abuse Patient Records regulations: The Federal rules restrict any use of the information to criminally investigate or prosecute any alcohol or drug abuse patient.[facility] HospitalIn the event this information is protected by the Federal Confidentiality of Alcohol and Drug Abuse Patient Records regulations: The Federal rules restrict any use of the information to criminally investigate or prosecute any alcohol or drug abuse patient.[facility] HospitalIn the event this information is protected by the Federal Confidentiality of Alcohol and Drug Abuse Patient Records regulations: The Federal rules restrict any use of the information to criminally investigate or prosecute any alcohol or drug abuse patient.[facility] HospitalIn the event this information is protected by the Federal Confidentiality of Alcohol and Drug Abuse Patient Records regulations: The Federal rules restrict any use of the information to criminally investigate or prosecute any alcohol or drug abuse patient.[facility] HospitalIn the event this information is protected by the Federal Confidentiality of Alcohol and Drug Abuse Patient Records regulations: The Federal rules restrict any use of the information to criminally investigate or prosecute any alcohol or drug abuse patient.[facility] HospitalIn the event this information is protected by the Federal Confidentiality of Alcohol and Drug Abuse Patient Records regulations: The Federal rules restrict any use of the information to criminally investigate or prosecute any alcohol or drug abuse patient.[facility] HospitalIn the event this information is protected by the Federal Confidentiality of Alcohol and Drug Abuse Patient Records regulations: The Federal rules restrict any use of the information to criminally investigate or prosecute any alcohol or drug abuse patient.[facility] HospitalIn the event this information is protected by the Federal Confidentiality of Alcohol and Drug Abuse Patient Records regulations: The Federal rules restrict any use of the information to criminally investigate or prosecute any alcohol or drug abuse patient.[facility] HospitalIn the event this information is protected by the Federal Confidentiality of Alcohol and Drug Abuse Patient Records regulations: The Federal rules restrict any use of the information to criminally investigate or prosecute any alcohol or drug abuse patient.[facility] HospitalIn the event this information is protected by the Federal Confidentiality of Alcohol and Drug Abuse Patient Records regulations: The Federal rules restrict any use of the information to criminally investigate or prosecute any alcohol or drug abuse patient.[facility] HospitalIn the event this information is protected by the Federal Confidentiality of Alcohol and Drug Abuse Patient Records regulations: The Federal rules restrict any use of the information to criminally investigate or prosecute any alcohol or drug abuse patient.[facility] HospitalIn the event this information is protected by the Federal Confidentiality of Alcohol and Drug Abuse Patient Records regulations: The Federal rules restrict any use of the information to criminally investigate or prosecute any alcohol or drug abuse patient.[facility] HospitalIn the event this information is protected by the Federal Confidentiality of Alcohol and Drug Abuse Patient Records regulations: The Federal rules restrict any use of the information to criminally investigate or prosecute any alcohol or drug abuse patient.[facility] HospitalIn the event this information is protected by the Federal Confidentiality of Alcohol and Drug Abuse Patient Records regulations: The Federal rules restrict any use of the information to criminally investigate or prosecute any alcohol or drug abuse patient.[facility] HospitalIn the event this information is protected by the Federal Confidentiality of Alcohol and Drug Abuse Patient Records regulations: The Federal rules restrict any use of the information to criminally investigate or prosecute any alcohol or drug abuse patient.[facility] HospitalIn the event this information is protected by the Federal Confidentiality of Alcohol and Drug Abuse Patient Records regulations: The Federal rules restrict any use of the information to criminally investigate or prosecute any alcohol or drug abuse patient.[facility] HospitalIn the event this information is protected by the Federal Confidentiality of Alcohol and Drug Abuse Patient Records regulations: The Federal rules restrict any use of the information to criminally investigate or prosecute any alcohol or drug abuse patient.[facility] HospitalIn the event this information is protected by the Federal Confidentiality of Alcohol and Drug Abuse Patient Records regulations: The Federal rules restrict any use of the information to criminally investigate or prosecute any alcohol or drug abuse patient.[facility] HospitalIn the event this information is protected by the Federal Confidentiality of Alcohol and Drug Abuse Patient Records regulations: The Federal rules restrict any use of the information to criminally investigate or prosecute any alcohol or drug abuse patient.[facility] HospitalIn the event this information is protected by the Federal Confidentiality of Alcohol and Drug Abuse Patient Records regulations: The Federal rules restrict any use of the information to criminally investigate or prosecute any alcohol or drug abuse patient.[facility] HospitalIn the event this information is protected by the Federal Confidentiality of Alcohol and Drug Abuse Patient Records regulations: The Federal rules restrict any use of the information to criminally investigate or prosecute any alcohol or drug abuse patient.[facility] HospitalIn the event this information is protected by the Federal Confidentiality of Alcohol and Drug Abuse Patient Records regulations: The Federal rules restrict any use of the information to criminally investigate or prosecute any alcohol or drug abuse patient.[facility] HospitalIn the event this information is protected by the Federal Confidentiality of Alcohol and Drug Abuse Patient Records regulations: The Federal rules restrict any use of the information to criminally investigate or prosecute any alcohol or drug abuse patient.[facility] HospitalIn the event this information is protected by the Federal Confidentiality of Alcohol and Drug Abuse Patient Records regulations: The Federal rules restrict any use of the information to criminally investigate or prosecute any alcohol or drug abuse patient.[facility] HospitalIn the event this information is protected by the Federal Confidentiality of Alcohol and Drug Abuse Patient Records regulations: The Federal rules restrict any use of the information to criminally investigate or prosecute any alcohol or drug abuse patient.[facility] HospitalIn the event this information is protected by the Federal Confidentiality of Alcohol and Drug Abuse Patient Records regulations: The Federal rules restrict any use of the information to criminally investigate or prosecute any alcohol or drug abuse patient.[facility] HospitalIn the event this information is protected by the Federal Confidentiality of Alcohol and Drug Abuse Patient Records regulations: The Federal rules restrict any use of the information to criminally investigate or prosecute any alcohol or drug abuse patient.[facility] HospitalIn the event this information is protected by the Federal Confidentiality of Alcohol and Drug Abuse Patient Records regulations: The Federal rules restrict any use of the information to criminally investigate or prosecute any alcohol or drug abuse patient.[facility] HospitalIn the event this information is protected by the Federal Confidentiality of Alcohol and Drug Abuse Patient Records regulations: The Federal rules restrict any use of the information to criminally investigate or prosecute any alcohol or drug abuse patient.[facility] HospitalIn the event this information is protected by the Federal Confidentiality of Alcohol and Drug Abuse Patient Records regulations: The Federal rules restrict any use of the information to criminally investigate or prosecute any alcohol or drug abuse patient.[facility] HospitalIn the event this information is protected by the Federal Confidentiality of Alcohol and Drug Abuse Patient Records regulations: The Federal rules restrict any use of the information to criminally investigate or prosecute any alcohol or drug abuse patient.[facility] HospitalIn the event this information is protected by the Federal Confidentiality of Alcohol and Drug Abuse Patient Records regulations: The Federal rules restrict any use of the information to criminally investigate or prosecute any alcohol or drug abuse patient.[facility] HospitalIn the event this information is protected by the Federal Confidentiality of Alcohol and Drug Abuse Patient Records regulations: The Federal rules restrict any use of the information to criminally investigate or prosecute any alcohol or drug abuse patient.[facility] HospitalIn the event this information is protected by the Federal Confidentiality of Alcohol and Drug Abuse Patient Records regulations: The Federal rules restrict any use of the information to criminally investigate or prosecute any alcohol or drug abuse patient.[facility] HospitalIn the event this information is protected by the Federal Confidentiality of Alcohol and Drug Abuse Patient Records regulations: The Federal rules restrict any use of the information to criminally investigate or prosecute any alcohol or drug abuse patient.[facility] HospitalIn the event this information is protected by the Federal Confidentiality of Alcohol and Drug Abuse Patient Records regulations: The Federal rules restrict any use of the information to criminally investigate or prosecute any alcohol or drug abuse patient.[facility] HospitalIn the event this information is protected by the Federal Confidentiality of Alcohol and Drug Abuse Patient Records regulations: The Federal rules restrict any use of the information to criminally investigate or prosecute any alcohol or drug abuse patient.[facility] HospitalIn the event this information is protected by the Federal Confidentiality of Alcohol and Drug Abuse Patient Records regulations: The Federal rules restrict any use of the information to criminally investigate or prosecute any alcohol or drug abuse patient.[facility] HospitalIn the event this information is protected by the Federal Confidentiality of Alcohol and Drug Abuse Patient Records regulations: The Federal rules restrict any use of the information to criminally investigate or prosecute any alcohol or drug abuse patient.[facility] HospitalIn the event this information is protected by the Federal Confidentiality of Alcohol and Drug Abuse Patient Records regulations: The Federal rules restrict any use of the information to criminally investigate or prosecute any alcohol or drug abuse patient.[facility] HospitalIn the event this information is protected by the Federal Confidentiality of Alcohol and Drug Abuse Patient Records regulations: The Federal rules restrict any use of the information to criminally investigate or prosecute any alcohol or drug abuse patient.[facility] HospitalIn the event this information is protected by the Federal Confidentiality of Alcohol and Drug Abuse Patient Records regulations: The Federal rules restrict any use of the information to criminally investigate or prosecute any alcohol or drug abuse patient.[facility] HospitalIn the event this information is protected by the Federal Confidentiality of Alcohol and Drug Abuse Patient Records regulations: The Federal rules restrict any use of the information to criminally investigate or prosecute any alcohol or drug abuse patient.[facility] HospitalIn the event this information is protected by the Federal Confidentiality of Alcohol and Drug Abuse Patient Records regulations: The Federal rules restrict any use of the information to criminally investigate or prosecute any alcohol or drug abuse patient.[facility] HospitalIn the event this information is protected by the Federal Confidentiality of Alcohol and Drug Abuse Patient Records regulations: The Federal rules restrict any use of the information to criminally investigate or prosecute any alcohol or drug abuse patient.[facility] HospitalIn the event this information is protected by the Federal Confidentiality of Alcohol and Drug Abuse Patient Records regulations: The Federal rules restrict any use of the information to criminally investigate or prosecute any alcohol or drug abuse patient.[facility] HospitalIn the event this information is protected by the Federal Confidentiality of Alcohol and Drug Abuse Patient Records regulations: The Federal rules restrict any use of the information to criminally investigate or prosecute any alcohol or drug abuse patient.[facility] HospitalIn the event this information is protected by the Federal Confidentiality of Alcohol and Drug Abuse Patient Records regulations: The Federal rules restrict any use of the information to criminally investigate or prosecute any alcohol or drug abuse patient.[facility] HospitalIn the event this information is protected by the Federal Confidentiality of Alcohol and Drug Abuse Patient Records regulations: The Federal rules restrict any use of the information to criminally investigate or prosecute any alcohol or drug abuse patient.[facility] HospitalIn the event this information is protected by the Federal Confidentiality of Alcohol and Drug Abuse Patient Records regulations: The Federal rules restrict any use of the information to criminally investigate or prosecute any alcohol or drug abuse patient.[facility] HospitalIn the event this information is protected by the Federal Confidentiality of Alcohol and Drug Abuse Patient Records regulations: The Federal rules restrict any use of the information to criminally investigate or prosecute any alcohol or drug abuse patient.[facility] HospitalIn the event this information is protected by the Federal Confidentiality of Alcohol and Drug Abuse Patient Records regulations: The Federal rules restrict any use of the information to criminally investigate or prosecute any alcohol or drug abuse patient.[facility] HospitalIn the event this information is protected by the Federal Confidentiality of Alcohol and Drug Abuse Patient Records regulations: The Federal rules restrict any use of the information to criminally investigate or prosecute any alcohol or drug abuse patient.[facility] HospitalIn the event this information is protected by the Federal Confidentiality of Alcohol and Drug Abuse Patient Records regulations: The Federal rules restrict any use of the information to criminally investigate or prosecute any alcohol or drug abuse patient.[facility] HospitalIn the event this information is protected by the Federal Confidentiality of Alcohol and Drug Abuse Patient Records regulations: The Federal rules restrict any use of the information to criminally investigate or prosecute any alcohol or drug abuse patient.[facility] HospitalIn the event this information is protected by the Federal Confidentiality of Alcohol and Drug Abuse Patient Records regulations: The Federal rules restrict any use of the information to criminally investigate or prosecute any alcohol or drug abuse patient.[facility] HospitalIn the event this information is protected by the Federal Confidentiality of Alcohol and Drug Abuse Patient Records regulations: The Federal rules restrict any use of the information to criminally investigate or prosecute any alcohol or drug abuse patient.[facility] HospitalIn the event this information is protected by the Federal Confidentiality of Alcohol and Drug Abuse Patient Records regulations: The Federal rules restrict any use of the information to criminally investigate or prosecute any alcohol or drug abuse patient.[facility] HospitalIn the event this information is protected by the Federal Confidentiality of Alcohol and Drug Abuse Patient Records regulations: The Federal rules restrict any use of the information to criminally investigate or prosecute any alcohol or drug abuse patient.[facility] HospitalIn the event this information is protected by the Federal Confidentiality of Alcohol and Drug Abuse Patient Records regulations: The Federal rules restrict any use of the information to criminally investigate or prosecute any alcohol or drug abuse patient.[facility] HospitalIn the event this information is protected by the Federal Confidentiality of Alcohol and Drug Abuse Patient Records regulations: The Federal rules restrict any use of the information to criminally investigate or prosecute any alcohol or drug abuse patient.[facility] HospitalIn the event this information is protected by the Federal Confidentiality of Alcohol and Drug Abuse Patient Records regulations: The Federal rules restrict any use of the information to criminally investigate or prosecute any alcohol or drug abuse patient.[facility] HospitalIn the event this information is protected by the Federal Confidentiality of Alcohol and Drug Abuse Patient Records regulations: The Federal rules restrict any use of the information to criminally investigate or prosecute any alcohol or drug abuse patient.[facility] HospitalIn the event this information is protected by the Federal Confidentiality of Alcohol and Drug Abuse Patient Records regulations: The Federal rules restrict any use of the information to criminally investigate or prosecute any alcohol or drug abuse patient.[facility] HospitalIn the event this information is protected by the Federal Confidentiality of Alcohol and Drug Abuse Patient Records regulations: The Federal rules restrict any use of the information to criminally investigate or prosecute any alcohol or drug abuse patient.[facility] HospitalIn the event this information is protected by the Federal Confidentiality of Alcohol and Drug Abuse Patient Records regulations: The Federal rules restrict any use of the information to criminally investigate or prosecute any alcohol or drug abuse patient.[facility] HospitalIn the event this information is protected by the Federal Confidentiality of Alcohol and Drug Abuse Patient Records regulations: The Federal rules restrict any use of the information to criminally investigate or prosecute any alcohol or drug abuse patient.[facility] Care Teams (unrecognized sec tion and content) Team Status: Active Member Role Status Dates Lui Salomon MD Primary Care Provider Active Team Status: Inactive Member Role Status Dates Lui Salomon MD Primary Care Provider Active Start: September 22, 2023 End: September 22, 2023 Ketty Mccall MD Attending Provider Active Start: September 22, 2023 End: May 1st, 2024 Team Status: Inactive Member Role Status Dates Lui Enrique Salomon , MD Primary Care Provider Active Start: October [...] November 04, 2023 End: November 04, 2023 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 Relationship Specialty Start Date End Date Gay Enciso, ANIMATION DIRECTOR.MRI TECHNICIAN [address] [place] [address] PCP - General Family Practice 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 Relationship Specialty Start Date End Date Gay Enciso, ANIMATION DIRECTOR.MRI TECHNICIAN [address] [place] [address] PCP - General Family Medicine 10/24/21 Manuel Ferris MD [address] [place] [address] Referring Family Medicine 02/12/22 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 Relationship Specialty Start Date End Date Manuel Ferris MD [address] [place] [address] PCP - General Family Medicine 02/27/22 Manuel Ferris MD [address] [place] [address] Referring Family Medicine 02/12/22 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 Relationship Specialty Start Date End Date Manuel Ferris MD [address] [place] [address] PCP - General Family Medicine 02/27/22 Manuel Ferris MD [address] [place] [address] Referring Family Medicine 02/12/22 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 Relationship Specialty Start Date End Date Manuel Ferris MD [address] [facility] [place] [address] PCP - General Family Medicine 02/27/22 Manuel Ferris MD [address] [facility] [place] [address] Referring Family Medicine 02/12/22 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 Relationship Specialty Start Date End Date Manuel Ferris MD [address] [facility] [place] [address] PCP - General Family Medicine 02/27/22 Manuel Ferris MD [address] [facility] [place] [address] Referring Family Medicine 02/12/22 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 Relationship Specialty Start Date End Date Manuel Ferris MD [address] [facility] [place] [address] PCP - General Family Medicine 02/27/22 Manuel Ferris MD [address] [facility] [place] [address] Referring Family Medicine 02/12/22 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 Relationship Specialty Start Date End Date Manuel Ferris MD [address] [facility] [place] [address] PCP - General Family Medicine 02/27/22 Manuel Ferris MD [address] [facility] [place] [address] Referring Family Medicine 02/12/22 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 Relationship Specialty Start Date End Date Manuel Ferris MD [address] [facility] [place] [address] PCP - General Family Medicine 02/27/22 Manuel Ferris MD [address] [facility] [place] [address] Referring Family Medicine 02/12/22 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 Relationship Specialty Start Date End Date Manuel Ferris MD [address] [facility] [place] [address] PCP - General Family Medicine 02/27/22 Manuel Ferris MD [address] [facility] [place] [address] Referring Family Medicine 02/12/22 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 Relationship Specialty Start Date End Date Manuel Ferris MD [address] [facility] [place] [address] PCP - General Family Medicine 02/27/22 Manuel Ferris MD [address] [facility] [place] [address] Referring Family Medicine 02/12/22 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 Relationship Specialty Start Date End Date Manuel Ferris MD [address] [facility] [place] [address] PCP - General Family Medicine 02/27/22 Manuel Ferris MD [address] [facility] [place] [address] Referring Family Medicine 02/12/22 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 Relationship Specialty Start Date End Date Manuel Ferris MD [address] [facility] [place] [address] PCP - General Family Medicine 02/27/22 Manuel Ferris MD [address] [facility] [place] [address] Referring Family Medicine 02/12/22 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 Relationship Specialty Start Date End Date Manuel Ferris MD [address] [facility] [place] [address] PCP - General Family Medicine 02/27/22 Manuel Ferris MD [address] [facility] [place] [address] Referring Family Medicine 02/12/22 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 Relationship Specialty Start Date End Date Manuel Ferris MD [address] [facility] [place] [address] PCP - General Family Medicine 02/27/22 Manuel Ferris MD [address] [facility] [place] [address] Referring Family Medicine 02/12/22 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 Relationship Specialty Start Date End Date Manuel Ferris MD [address] [facility] [place] [address] PCP - General Family Medicine 02/27/22 Manuel Ferris MD [address] [facility] [place] [address] Referring Family Medicine 02/12/22 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 Relationship Specialty Start Date End Date Manuel Ferris MD [address] [facility] [place] [address] PCP - General Family Medicine 02/27/22 Manuel Ferris MD [address] [facility] [place] [address] Referring Family Medicine 02/12/22 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 Relationship Specialty Start Date End Date Manuel Ferris MD [address] [facility] [place] [address] PCP - General Family Medicine 02/27/22 Manuel Ferris MD [address] [facility] [place] [address] Referring Family Medicine 02/12/22 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 Relationship Specialty Start Date End Date Manuel Ferris MD [address] [facility] [place] [address] PCP - General Family Medicine 02/27/22 Manuel Ferris MD [address] [facility] [place] [address] Referring Family Medicine 02/12/22 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 Relationship Specialty Start Date End Date Manuel Ferris MD [address] [facility] [place] [address] PCP - General Family Medicine 02/27/22 Manuel Ferris MD [address] [facility] [place] [address] Referring Family Medicine 02/12/22 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 Relationship Specialty Start Date End Date Manuel Ferris MD [address] [facility] [place] [address] PCP - General Family Medicine 02/27/22 Manuel Ferris MD [address] [facility] [place] [address] Referring Family Medicine 02/12/22 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 Relationship Specialty Start Date End Date Manuel Ferris MD [address] [facility] [place] [address] PCP - General Family Medicine 02/27/22 Manuel Ferris MD [address] [facility] [place] [address] Referring Family Medicine 02/12/22 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 Relationship Specialty Start Date End Date Manuel Ferris MD [address] [facility] [place] [address] PCP - General Family Medicine 02/27/22 Manuel Ferris MD [address] [facility] [place] [address] Referring Family Medicine 02/12/22 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 Relationship Specialty Start Date End Date Manuel Ferris MD PCP - General Family Medicine 02/27/22 Manuel Ferris MD Referring Family Medicine 02/12/22 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 Relationship Specialty Start Date End Date Manuel Ferris MD PCP - General Family Medicine 02/27/22 Manuel Ferris MD Referring Family Medicine 02/12/22 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 Relationship Specialty Start Date End Date Manuel Ferris MD PCP - General Family Medicine 02/27/22 Manuel Ferris MD Referring Family Medicine 02/12/22 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 Relationship Specialty Start Date End Date Manuel Ferris MD PCP - General Family Medicine 02/27/22 Manuel Ferris MD Referring Family Medicine 02/12/22 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 Relationship Specialty Start Date End Date Manuel Ferris MD PCP - General Family Medicine 02/27/22 Manuel Ferris MD Referring Family Medicine 02/12/22 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 Relationship Specialty Start Date End Date Manuel Ferris MD PCP - General Family Medicine 02/27/22 Manuel Ferris MD Referring Family Medicine 02/12/22 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 Relationship Specialty Start Date End Date Manuel Ferris MD PCP - General Family Medicine 02/27/22 Manuel Ferris MD Referring Family Medicine 02/12/22 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 Relationship Specialty Start Date End Date Manuel Ferris MD PCP - General Family Medicine 02/27/22 Manuel Ferris MD Referring Family Medicine 02/12/22 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 Relationship Specialty Start Date End Date Manuel Ferris MD PCP - General Family Medicine 02/27/22 Manuel Ferris MD Referring Family Medicine 02/12/22 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 Relationship Specialty Start Date End Date Manuel Ferris MD PCP - General Family Medicine 02/27/22 Manuel Ferris MD Referring Family Medicine 02/12/22 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 Relationship Specialty Start Date End Date Manuel Ferris MD PCP - General Family Medicine 02/27/22 Manuel Ferris MD Referring Family Medicine 02/12/22 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 Relationship Specialty Start Date End Date Manuel Ferris MD PCP - General Family Medicine 02/27/22 Manuel Ferris MD Referring Family Medicine 02/12/22 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 Relationship Specialty Start Date End Date Manuel Ferris MD PCP - General Family Medicine 02/27/22 Manuel Ferris MD Referring Family Medicine 02/12/22 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 Relationship Specialty Start Date End Date Manuel Ferris MD PCP - General Family Medicine 02/27/22 Manuel Ferris MD Referring Family Medicine 02/12/22 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 Relationship Specialty Start Date End Date Manuel Ferris MD PCP - General Family Medicine 02/27/22 Manuel Ferris MD Referring Family Medicine 02/12/22 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 Relationship Specialty Start Date End Date Manuel Ferris MD PCP - General Family Medicine 02/27/22 Manuel Ferrsi MD Referring Family Medicine 02/12/22 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 Relationship Specialty Start Date End Date Manuel Ferris MD PCP - General Family Medicine 02/27/22 Manuel Ferris MD Referring Family Medicine 02/12/22 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 Relationship Specialty Start Date End Date Manuel Ferris MD PCP - General Family Medicine 02/27/22 Manuel Ferris MD Referring Family Medicine 02/12/22 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 Relationship Specialty Start Date End Date Manuel Ferris MD PCP - General Family Medicine 02/27/22 Manuel Ferris MD Referring Family Medicine 02/12/22 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 Relationship Specialty Start Date End Date Manuel Ferris MD PCP - General Family Medicine 02/27/22 Manuel Ferris MD Referring Family Medicine 02/12/22 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 Relationship Specialty Start Date End Date Manuel Ferris MD PCP - General Family Medicine 02/27/22 Manuel Ferris MD Referring Family Medicine 02/12/22 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 Relationship Specialty Start Date End Date Manuel Ferris MD PCP - General Family Medicine 02/27/22 Manuel Ferris MD Referring Family Medicine 02/12/22 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 Relationship Specialty Start Date End Date Manuel Ferris MD PCP - General Family Medicine 02/27/22 Manuel Ferris MD Referring Family Medicine 02/12/22 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 Relationship Specialty Start Date End Date Manuel Ferris MD PCP - General Family Medicine 02/27/22 Manuel Ferris MD Referring Family Medicine 02/12/22 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 Relationship Specialty Start Date End Date Manuel Ferris MD PCP - General Family Medicine 02/27/22 Manuel Ferris MD Referring Family Medicine 02/12/22 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 Relationship Specialty Start Date End Date Manuel Ferris MD PCP - General Family Medicine 02/27/22 Manuel Ferris MD Referring Family Medicine 02/12/22 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 Relationship Specialty Start Date End Date Corey DO Arsh [address] [place] [address] PCP - General 10/22/18 Michelle Jasmine, ANIMATION DIRECTOR-MRI TECHNICIAN [address] [address] Nurse Practitioner Cardiology 06/08/23 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 Relationship Specialty Start Date End Date Gay Enciso ANIMATION DIRECTOR-MRI TECHNICIAN [address] [place] [address] PCP - General 07/13/23 Michelle Jasmine ANIMATION DIRECTOR-MRI TECHNICIAN [address] [address] Nurse Practitioner Cardiology 06/08/23 Aurora Patel MD [address] [place] [address] [address] [place] [address] Consulting Physician Cardiology 06/23/23 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 Relationship Specialty Start Date End Date Manuel Ferris MD PCP - General Family Medicine 02/27/22 Manuel Ferris MD Referring Family Medicine 02/12/22 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 Relationship Specialty Start Date End Date Manuel Ferris MD PCP - General Family Medicine 02/27/22 Manuel Ferris MD Referring Family Medicine 02/12/22 Team Status: Active Member Role Status Dates Lui Salomon MD Primary Care Provider Active Start: July 28, 2023 Virgil Green MD Attending Provider Active S tart: July 28, 2023 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 Relationship Specialty Start Date End Date Manuel Ferris MD PCP - General Family Medicine 02/27/22 Manuel Ferris MD Referring Family Medicine 02/12/22 Team Status: Inactive Member Role Status Dates Lui Salomon MD Primary Care Provider Active Start: December 16, 2023 End: December 16, 2023 Mirela Kelsey MD Attending Provider Active Sta rt: December 16, 2023 End: December 16, 2023 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 Relationship Specialty Start Date End Date Manuel Ferris MD PCP - General Family Medicine 02/27/22 Manuel Ferris MD Referring Family Medicine 02/12/22 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 Relationship Specialty Start Date End Date Manuel Ferris MD PCP - General Family Medicine 02/27/22 Manuel Ferris MD Referring Family Medicine 02/12/22 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 Relationship Specialty Start Date End Date Manuel Ferris MD PCP - General Family Medicine 02/27/22 Manuel Ferris MD Referring Family Medicine 02/12/22 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 Relationship Specialty Start Date End Date Manuel [...] February 28, 2024 End: February 28, 2024 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 Relationship Specialty Start Date End Date Charles Nicole MD [address] [place] [address] PCP - General Family Medicine 02/09/24 Team Status: Inactive Member Role Status Dates WALESKA Galloway Primary Care Provider Active Start: March 16, 2024 End: March 16, 2024 Bandar Portillo APRN Attending Provider Active Start: March 16, 2024 End: March 16, 2024 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 Relationship Specialty Start Date End Date Charles Nicole MD [address] [place] [address] PCP - General Family Medicine 02/09/24 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 Relationship Specialty Start Date End Date Charles Nicole MD [address] [place] [address] PCP - General Family Medicine 02/09/24 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 Relationship Specialty Start Date End Date Charles Nicole MD [address] [place] [facility] [place] [address] PCP - General Family Medicine 02/09/24 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 Relationship Specialty Start Date End Date Charles Nicole MD [address] [place] [address] PCP - General Family Medicine 02/09/24 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 Relationship Specialty Start Date End Date Charles Nicole MD [address] [place] [address] PCP - General Family Medicine 02/09/24 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 Relationship Specialty Start Date End Date Manuel Ferris MD PCP - General Family Medicine 02/27/22 Manuel Ferris MD Referring Family Medicine 02/12/22 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 Relationship Specialty Start Date End Date Charles Nicole MD [address] [place] [address] PCP - General Family Medicine 02/09/24 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 Relationship Specialty Start Date End Date Charles Nicole MD [address] [place] [address] PCP - General Family Medicine 02/09/24 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 Relationship Specialty Start Date End Date Charles Nicole MD [address] [place] [address] PCP - General Family Medicine 02/09/24 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 Relationship Specialty Start Date End Date Charles Nicole MD [address] [place] [address] PCP - General Family Medicine 02/09/24 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 Relationship Specialty Start Date End Date Manuel Ferris MD PCP - General Family Medicine 02/27/22 Manuel Ferris MD Referring Family Medicine 02/12/22 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 Relationship Specialty Start Date End Date Charles Nicole MD [address] [place] [address] PCP - General Family Medicine 02/09/24 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 Relationship Specialty Start Date End Date Manuel Ferris MD PCP - General Family Medicine 02/27/22 Manuel Ferris MD Referring Family Medicine 02/12/22 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 Relationship Specialty Start Date End Date Manuel Ferris MD PCP - General Family Medicine 02/27/22 Manuel Ferris MD Referring Family Medicine 02/12/22 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 Relationship Specialty Start Date End Date Charles Nicole MD [address] [place] [address] PCP - General Family Medicine 02/09/24 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 Relationship Specialty Start Date End Date Manuel Ferris MD PCP - General Family Medicine 02/27/22 Manuel Ferris MD Referring Family Medicine 02/12/22 Manuel Ferris MD [address] [place] [address] Referring Family Medicine 07/06/24 Team Status: Inactive Member Role Status Dates Gay Enciso , QUALITY CLOTH TESTER-C Primary Care Provider Active Start: July 10, 2024 End: July 10, 2024 Adolfo Kang MD Attending Provider Active Sta rt: July 10, 2024 End: July 10, 2024 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 Relationship Specialty Start Date End Date Manuel Ferris MD PCP - General Family Medicine 02/27/22 Manuel Ferris MD Referring Family Medicine 02/12/22 Manuel Ferris MD [address] [place] [address] Referring Family Medicine 07/06/24 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 Relationship Specialty Start Date End Date Manuel Ferris MD PCP - General Family Medicine 02/27/22 Manuel Ferris MD Referring Family Medicine 02/12/22 Manuel Ferris MD [address] [place] [address] Referring Family Medicine 07/06/24 Team Status: Inactive Member Role Status Dates Gay Enciso , QUALITY CLOTH TESTER-C Primary Care Provider Active Start: July 19, 2024 End: July 19, 2024 Adolfo Kang MD Attending Provider Active Sta rt: July 19, 2024 End: July 19, 2024 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 Relationship Specialty Start Date End Date Gay Enciso MD [address] [place] [address] Referring Physician Family Medicine 07/18/24 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 Relationship Specialty Start Date End Date Manuel Ferris MD PCP - General Family Medicine 02/27/22 Manuel Ferris MD Referring Family Medicine 02/12/22 Manuel Ferris MD [address] [place] [address] Referring Family Medicine 07/06/24 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 Relationship Specialty Start Date End Date Gay Enciso MD [address] [place] [address] Referring Physician Family Medicine 07/18/24 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 Relationship Specialty Start Date End Date Gay Enciso ANIMATION DIRECTOR-MRI TECHNICIAN [address] [place] [address] PCP - General 07/13/23 Michelle Jasmine ANIMATION DIRECTOR-MRI TECHNICIAN Nurse Practitioner Cardiology 06/08/23 Aurora Patel MD Consulting Physician Cardiology 06/23/23 Team Status: Active Member Role Status Dates WALESKA Galloway Primary Care Provider Active Start: July 19, 2024 Adolfo Kang MD Attending Provider, Other Provider Active Start: July 19, 2024 Team Status: Inactive Member Role Status Dates WALESKA Galloway Primary Care Provider Active Start: July 31, 2024 End: July 31, 2024 Adolfo Kang MD Attending Provider Active Sta rt: July 31, 2024 End: July 31, 2024 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 Relationship Specialty Start Date End Date Manuel Ferris MD PCP - General Family Medicine 02/27/22 Manuel Ferris MD Referring Family Medicine 02/12/22 Manuel Ferris MD [address] [place] [address] Referring Family Medicine 07/06/24 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 Relationship Specialty Start Date End Date Manuel Ferris MD PCP - General Family Medicine 02/27/22 Manuel Ferris MD Referring Family Medicine 02/12/22 Manuel Ferris MD [address] [place] [address] Referring Family Medicine 07/06/24 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 Relationship Specialty Start Date End Date Manuel Ferris MD PCP - General Family Medicine 02/27/22 Manuel Ferris MD Referring Family Medicine 02/12/22 Manuel Ferris MD [address] [place] [address] Referring Family Medicine 07/06/24 Team Status: Inactive Member Role Status Dates Gay Enciso NP-C Primary Care Provider Active Start: August 22, 2024 End: August 22, 2024 Adolfo Kang MD Attending Provider Active Sta rt: August 22, 2024 End: August 22, 2024 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 Relationship Specialty Start Date End Date Gay Enciso MD [address] [place] [address] Referring Physician Family Medicine 07/18/24 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 Relationship Specialty Start Date End Date Manuel Ferris MD PCP - General Family Medicine 02/27/22 Manuel Ferris MD Referring Family Medicine 02/12/22 Manuel Ferris MD [address] [place] [address] Referring Family Medicine 07/06/24 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 Relationship Specialty Start Date End Date Manuel Ferris MD PCP - General Family Medicine 02/27/22 Manuel Ferris MD Referring Family Medicine 02/12/22 [place] [address] [place], [place] [phone] Referring Family Medicine 07/06/24 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 Relationship Specialty Start Date End Date Gay Enciso MD [address] [place], [place] [phone] Referring Physician Family Medicine 07/18/24 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 Relationship Specialty [place] [address] [place], [place] [phone] Referring Physician Family Medicine 07/18/24 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 Relationship Specialty Start Date End Date Manuel Ferris MD PCP - General Family Medicine 02/27/22 Manuel Ferris MD Referring Family Medicine 02/12/22 Manuel Ferris MD [address] [facility] [place] [address] Referring Family Medicine 07/06/24 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 Relationship Specialty Start Date End Date Manuel Ferris MD PCP - General Family Medicine 02/27/22 Manuel Ferris MD Referring Family Medicine 02/12/22 Manuel Ferris MD [address] [facility] [place] [address] Referring Family Medicine 07/06/24 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 Relationship Specialty Start Date End Date Manuel Ferris MD PCP - General Family Medicine 02/27/22 Manuel Ferris MD Referring Family Medicine 02/12/22 Manuel Ferris MD [address] [facility] [place] [address] Referring Family Medicine 07/06/24 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 Relationship Specialty Start Date End Date Manuel Ferris MD PCP - General Family Medicine 02/27/22 Manuel Ferris MD Referring Family Medicine 02/12/22 Manuel Ferris MD [address] [facility] [place] [address] Referring Family Medicine 07/06/24 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 Relationship Specialty Start Date End Date Manuel Ferris MD PCP - General Family Medicine 02/27/22 Manuel Ferris MD Referring Family Medicine 02/12/22 Manuel Ferris MD [address] [place] [address] Referring Family Medicine 07/06/24 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 Relationship Specialty Start Date End Date Manuel Ferris MD PCP - General Family Medicine 02/27/22 Manuel Ferris MD Referring Family Medicine 02/12/22 Manuel Ferris MD [address] [place] [id number] Referring Family Medicine 07/06/24 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 Relationship Specialty Start Date End Date Manuel Ferris MD PCP - General Family Medicine 02/27/22 Manuel Ferris MD Referring Family Medicine 02/12/22 Manuel Ferris MD [address] [place] [address] Referring Family Medicine 07/06/24 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 Relationship Specialty Start Date End Date Manuel Ferris MD PCP - General Family Medicine 02/27/22 Manuel Ferris MD Referring Family Medicine 02/12/22 Manuel Ferris MD [address] [place] [id number] Referring Family Medicine 07/06/24 Inactive Administered Medications [...] BE BASED ON THE PRIMARY CLINICAL RECORDS. [employer] provides no warranty or guarantee of the accuracy or completeness of information in this document.
== END 2024-10-07 13:23 | disposition home or self-care (01) ==
LOC: LAB 13:22
PROVIDERS: PCP Nurse Practitioner Family; Visit Provider Nurse Practitioner Family
DX: R19.7 Diarrhea, unspecified (principal)
CPT/HCPCS: 87045; 87046; 87427; 87493

== ENCOUNTER 2024-10-24 10:07 | Outpatient (REF) | payer OTHER, SELFPAY ==
--- OUTSIDE RECORDS SUMMARY | 2024-10-13 08:04 | XMS_ITS ---
Author Organization [facility] in [place] Address [address] [place] [address] Care Team Providers Care Retail Sales Clerk Name Role Phone Gay De La Torre Primary Care Provider REASON FOR VISIT stool tests Encounters Encounter Location Date Provider Diagnosis [facility] [address] [place], [place] [address] [address] 10/13/2024 Gay De La Torre Plan Of Treatment No Information Progress Notes * Ariadna PANIAGUA BDOB:1980 (44 yo F)Acc No.[id number]:10/13/2024 Patient: Ariadna MOORE :1980 A ge:44 Y S ex:Female Address:[address] [place] [address] [place], [address] * true * Date: Generated for Leathai keny/Alfred/eTransmitting on: 0 10/24/2024 10:11 AM EDT
--- OUTSIDE RECORDS SUMMARY | 2024-10-13 09:35 | XMS_ITS ---
Author Organization [facility] in [place] Address [address] [place] [address] Care Team Providers Care Supervisor Sandblaster Name Role Phone Gay De La Torre Primary Care Provider [phone] REASON FOR VISIT c.diff not done Encounters Encounter Location Date Provider Diagnosis [facility] [address] [place] [address] 10/13/2024 Gay De La Torre Plan Of Treatment No Information Progress Notes * Ariadna PANIAGUA BDOB:1980 (44 yo F)Acc No.[id number]:10/13/2024 Patient: Ariadna MOORE :1980 A ge:44 Y S ex:Female Address:[address] [place] [address] [facility] [address] * true * Date: Generated for Rosalee bustillo/Alfred/eTransmitting on: 0 10/24/2024 10:12 AM EDT
--- OUTSIDE RECORDS SUMMARY | 2024-10-19 14:00 | XMS_ITS | Encounter Summary ---
Author Organization [facility] Address [address] [place] [address] Care Team Providers Care Social Sciences Instructor Name Role Phone Manuel Klein MD Unavailable [phone] Manuel Klein MD Primary Care Provider +[phone] Manuel Klein MD Unavailable [phone] Source Comments In the event this information is protected by the Federal Confidentiality of Alcohol and Drug AbusePatient Records regulations: The Federal rules restrict any use of the information to criminally investigate or prosecute any alcohol or drug abuse patient.[facility] Reason for Visit * [place] Prior Authorization (Routine) - Authorized Specialty Diagnoses / Procedures Referred By Contac t Referred To Contact Diagnoses Other systemic lupus erythematosus with other organ involvement (HCC) Procedures BELIMUMAB INJECTION Sandra Park MD [address] [place] [address] Phone: tel: fax: Sandra Park MD [address] [place] [address] Phone: tel: fax: Referral ID Status Reason Start Date Expiration Date V isits Requested Visits Authorized [id number] Authorized 09/08/2024 03/10/2025 8 8 Encounter Details Date Type Department Care Team (Latest Contact Info) Description 10/19/2024 2:00 PM EDT [facility] Hematology/Oncology [address] [place] [address] [place] [address] Other systemic lupus erythematosus with other organ involvement (HCC) (Primary Dx) Social History Tobacco Use Types Packs/Day Years Used Date Smoking Tobacco: Every Day Cigarettes 1 20 Smokeless Tobacco: Never Alcohol Use Standard Drinks/Week Comments No 0 (1 standard drink = 0.6 oz pur e alcohol) PHQ-2 Answer Date Recorded PHQ-2 score 1 12/27/2023 Area Deprivation Index Answer Date Constantino rded National Score (1-100), lower number is lower ri sk 59 09/24/2022 State Score (1-10), lower number is lower risk 4 09/24/2022 Data from: https://www.neighborhoodatlas.medicine.[facility].edu/. Last address used for calculation [address] [place] [address] 09/24/2022 Comments No Sex and Gender Information Value Date Recorded Sex Assigned at Not on file Legal Sex Female 2:51 PM EST Gender Identity Not on file Sexual Orientation Not on file documented as of this encounter Functional Status * Are you deaf or do you have serious difficulty hearing? Answer Date of Assessment Author No 12/25/2014 11:14 AM EDT Chichi De Jesus * Are you blind or do you have serious difficulty seeing, even when wearing glasses? Answer Date of Assessment Author No 12/25/2014 11:14 AM EDT Chichi De Jesus * Do you have serious difficulty walking or climbing stairs? Answer Date of Assessment Author Yes 12/25/2014 11:14 AM EDT Chichi De Jesus * Do you have difficulty dressing or bathing? Answer Date of Assessment Author Yes 12/25/2014 11:14 AM EDT Chichi De Jesus * Because of a physical, mental, or emotional condition, do you have difficulty doing errands alone such as visiting a doctor's office or shopping? Answer Date of Assessment Author No 12/25/2014 11:14 AM JEANETTET Chichi De Jesus documented as of this encounter Mental Status * Because of a physical, mental, or emotional condition, do you have serious difficulty concentrating, remembering, or making decisions? Answer Entry Date Author No 12/25/2014 11:14 AM EDT Chichi De Jesus documented in this encounter Plan of Treatment Upcoming Encounters Date Type Department Care Team (Latest Contact Info) Description 11/01/2024 9:00 AM EDT Infusion Center Hematology/Oncology [address] [place] [address] [place] [address] IVIG q 4 weeks with B 12 inj and lab 11/29/2024 8:45 AM EDT Office Visit [facility] [address] [place] [address] [place] [address] 3 mo F/U-IVIG(slow infusion per pt request/B12 +/-IV iron lab 11/29/2024 9:00 AM EDT Visit (SP) Office Hematology/Oncology [address] [place] [address] [place] [address] Fara Lopez APRN.[facility] [address] [address] 3 mo F/U-IVIG(slow infusion per pt request/B12 +/-IV iron lab 11/29/2024 9:30 AM EDT Infusion Center Hematology/Oncology [address] [place] [address] [place] [address] 3 mo F/U-IVIG(slow infusion per pt request/B12 +/-IV iron lab documented as of this encounter Visit Diagnoses Diagnosis Other systemic lupus erythematosus with other organ involvement (HCC)- Primary documented in this encounter Administered Medications Inactive Administered Medications - up to 3 most recent administrations Medication Order MAR Action Action Date Dose Rate Site acetaminophen 1,000 mg tab(s) (TYLENOL) 1,000 mg, ORAL, ONCE, 1 dose, On Delmi 10/19/24 at 1430Indications:Other systemic lupus erythematosus with other organ involvement (HCC) Given 10/19/2024 2:06 PM EDT 1,000 mg belimumab 1,275 mg in NaCl 0.9% 250 mL (BENLYSTA) 1,275 mg (10 mg/kg/dose 127.5 kg), INTRAVENOUS, at 250 mL/hr, Administer over 60 Minutes, ONCE, 1 dose, On Delmi 10/19/24 at 1430, Total Volume - EXP: 10/19/2024 2205 RT Protect From LightIndications:Other systemic lupus erythematosus with other organ involvement (HCC) New Bag/Syringe/Bottle 10/19/2024 2:22 PM EDT 1,275 mg 250 mL/hr diphenhydrAMINE 25 mg capsule (BENADRYL) 25 mg, ORAL, ONCE, 1 dose, On Delmi 10/19/24 at 1430Indications:Other systemic lupus erythematosus with other organ involvement (HCC) Given 10/19/2024 2:06 PM EDT 25 mg documented in this encounter Care Teams Social Sciences Instructor Relationship Specialty Start Date End Date Manuel Klein MD PCP - General Family Medicine 02/27/22 Manuel Klein MD Referring Family Medicine 02/12/22 Manuel Klein MD [address] [place] [address] Referring Family Medicine 07/06/24 documented as of this encounter
--- OUTSIDE RECORDS SUMMARY | 2024-10-23 07:15 | XMS_ITS ---
Author Organization [facility] [place] Address [address] [place] [address] Care Team Providers Care Box Covering Machine Operator Name Role Phone Gay De La Torre Primary Care Provider [phone] Allergies Allergen (clinical drug ingredient) Drug/Non Drug Allergy documented on EMR Reaction Allergy Type Onset Date Status sulfamethoxazole / trimethoprim Bactrim GI upset Drug Allergy Active codeine Codeine jittery Drug Allergy Active Latex Latex rash Allergy Active Substance with sulfonamide structure and antibacterial mechanism of action (substance) Sulfa Antibiotics swelling Drug Allergy A ctive clindamycin Clindamycin unknown Drug Allergy Act kaycee trimethoprim Trimethoprim unknown Drug Allergy A ctive REASON FOR VISIT Multiple [phone] Medications Medication SIG (Take, Route, Frequency, Duration) Notes Start Date End Date Status Imuran 50 MG 3 tablets Orally onc e daily Active Methocarbamol 750 MG 1 tablet Orally Q H S prn for 10 days 07/27/2023 Active KlonoPIN 0.5 MG 1 tablet Orally Once a day prn for 30 days 10/06/2024 Active Metoprolol Tartrate 50 MG TAKE 2 TABLETS BY MOUTH TWICE A DAY WITH FOOD for 90 days Active Nystatin 849361 UNIT/ML 4 mL Mouth/Throa t Four times a day for 7 days Active Hydroxychloroquine Sulfate 400 MG 1 capsule Orally once daily for 30 days Active Dificid 200 MG 1 tablet Orally Twic e a day for 10 day(s) 08/11/2024 Active Cymbalta 20 MG 1 capsule Orally Onc e a day for 30 days 02/01/2024 Active Folic Acid Active Fluocinonide 0.05 % 1 application Dye Beck Reel Operator ally Once a day- as needed for 30 days Active Clobetasol Propionate 0.05 % APPLY TO SCALP IN SHOWER 3 TO 4 TIMES A WEEK External for 30 Days Active Cephalexin 500 MG 2 tabs Orally bid fo r 10 days 08/11/2024 Active Clotrimazole 10 MG 1 bk while on immunosuppressive medicine Mouth/Throat Three times a day for 30 day(s) 08/11/2024 Active Cyanocobalamin 1000 MCG/ML 1 mL Injection monthly 12/28/2023 Active Clotrimazole 10 MG 1 bk Mouth/Throa t Five times a day for 14 days 04/05/2024 Active Benlysta 200 MG/ML 200mg Subcutaneous o nce weekly Active Vitamin D (Ergocalciferol) 1.25 MG (13907 UT) 1 capsule Orally once weekly for 28 days Active amLODIPine Besylate 5 MG 1 tablet Orally Once a day for 30 days 02/03/2024 Active Voltaren 1 % as directed External ly as needed 02/01/2024 Active Albuterol Sulfate HFA 108 (90 Base) MCG/ACT 2 puff as needed Inhalation every 4 hrs for 30 days 08/05/2023 Active Vancomycin HCl 125 MG 1 capsule Orally O nce a day for 15 days 04/14/2024 Active Pregabalin 75 MG 3 capsule Orally onc e daily- as needed for 30 days Active predniSONE 10 MG 1 tablet Orally once daily for 30 days Active Trulicity 1.5 MG/0.5ML as directed Subcu taneous weekly for 28 days 07/04/2024 Active Triamcinolone Acetonide 0.025 % APPLY TO AFFECTED AREA TWICE DAILY NEEDED FOR 30 DAYS External for 30 Days Active Pantoprazole Sodium 40 MG 1 tablet 1/2 t o 1 hour before morning meal Orally Once a day for 90 days 07/27/2024 Active Social History Tobacco Use: Social History Observation Description Date Details (start date - stop date) Current Smoker 05/24/1995 - NA Tobacco Use/Smoking Question Answer Notes Patient is a current smoker When did you start smoking? 05/24/1995 How often do you smoke cigarettes? every day How many cigarettes a day do you smoke? 11-20 Additional Findings: Tobacco User Modera te cigarette smoker (10-19 cigs/day) Vital Signs Height 67 in 10/23/2024 Encounters Encounter Location Date Provider Diagnosis [facility] [address] [place] [address] 10/23/2024 Gay De La Torre Diarrhea R19.7 ; [place] D (gastroesophageal reflux disease) K21.9 and Generalized enlarged lymph nodes R59.1 Assessments Encounter Date Diagnosis (ICD Code) Assessment Notes Treatment Notes Treatment Clinical Notes Section Notes 10/23/2024 Diarrhea (ICD-10 - R19.7) 10/23/2024 GERD (gastroesophagea l reflux disease) (ICD-10 - K21.9) 10/23/2024 Generalized enlarged lymph nodes (ICD-10 - R59.1) Plan Of Treatment Medication Medication Name Sig Start Date Stop Date Notes Clotrimazole 10 MG 1 bk while on im munosuppressive medicine Mouth/Throat Three times a day for 30 day(s) 08/11/2024 Pending Test Test Name Order Date CULTURE, STOOL 10/23/2024 C DIFF TOX PCR STOOL 10/23/2024 H. pylori Stool Ag, EIA 10/23/2024 Next Appt Details Follow Up: prn, Reason: Progress Notes * Ariadna PANIAGUA BDOB:1980 (44 yo F)Acc No.[id number]:10/23/2024 UNLOCKED PROGRESS NOTE TeleMed via Doxy Patient: Abiola SINGH Ariadna B Provider: Abiola De La Torre ([facility]), CAREER ADVISOR :1980 A ge:44 Y S ex:Female Date:10/23/2024 Address:[address] [place] [address] [id number] Check In:09:41 AM ESTCheck O ut:01:45 PM EST Subjective: * Chief Complaints: * 1 . Multiple [phone]. * HPI: G eneral: diarrhea can have standing order stool testing wonders if has h pylori heart palpitations tend to get worse after eats [facility], counseling and than will see psych klonopin helping with anxiety. * ROS: G eneral/Constitutional: Fever d enies. H eadache d enies. W eight loss?denies. O phthalmologic: Discharge d enies. E ye Pain d enies. I tching and redness d enies. E NT: Patient admits t hrush. N shelby congestion d enies.?Nasal discharge d enies. S ore throat d enies. C ardiovascular: Patient admits p alpitations at times. C hest tightness/ heavy pressure d enies. R apid heart rate d enies. S welling of extremities d enies. C hest pain d enies. R espiratory: Productive cough d enies. C hest pain d enies. C ough d enies. S hortness of breath d enies. W heezing d enies. ? G astrointestinal: Abdominal pain d enies. C onstipation d enies. D ecreased appetite d enies. D iarrhea o n and off. N ausea d enies. V omiting d enies. G enitourinary: Urinary incontinence d enies. P ainful urination d enies. M usculoskeletal: Back pain d enies. N alexandra pain d enies. M uscle aches d enies. S kin: Rash d enies. S kin lesion(s) d enies. ? * Medical History: C hronic fatigue, Anxiety, Cervical lymphadenopathy, GERD (gastroesophageal reflux disease), Hypercholesterolemia, Hyperlipidemia, Lupus, Tachycardia, Prediabetes, Hypertension. * Surgical History: l ymph node biopsy 2020. * Hospitalization/Major Diagno stic Procedure: D enies Past Hospitalization. * Family History: F ather: , Stomach Cancer, diagnosed with Other malignant neoplasm of unspecified site. M other: alive, crohns disease, thyroid disease. B rother(s): Lung Issue- lung surgery when 17. S ister(s): alive. S on(s): alive, Lung Issue- lung surgery when 17. D aughter(s): alive. 1 sister(s) . 1 son(s) , 3 daughter(s) . . Unknown medical with sister. * Social History: T obacco Use: T obacco Use/Smoking P atient is a c urrent smoker W hen did you start smoking? 0 05/24/1995 H ow often do you smoke cigarettes? e very day H ow many cigarettes a day do you smoke? 1 1-20 A dditional Findings: Tobacco User M oderate cigarette smoker (10-19 cigs/day) * Medications: T aking Albuterol Sulfate HFA 108 (90 Base) MCG/ACT Aerosol Solution 2 puff as needed Inhalation every 4 hrs , Taking amLODIPine Besylate 5 MG Tablet 1 tablet Orally Once a day , Taking Benlysta(Belimumab) 200 MG/ML Solution Prefilled Syringe 200mg Subcutaneous once weekly , Taking Cephalexin 500 MG Tablet 2 tabs Orally bid , Taking Clobetasol Propionate 0.05 % Shampoo APPLY TO SCALP IN SHOWER 3 TO 4 TIMES A WEEK External , Taking Clotrimazole 10 MG Bk 1 bk Mouth/Throat Five times a day , Notes: 10 mg dissolved slowly 5 times daily for 7 to 14 days, Taking Clotrimazole 10 MG Bk 1 bk while on immunosuppressive medicine Mouth/Throat Three times a day , Taking Cyanocobalamin 1000 MCG/ML Solution 1 mL Injection monthly , Taking Cymbalta(DULoxetine HCl) 20 MG Capsule Delayed Release Particles 1 capsule Orally Once a day , Taking Dificid(Fidaxomicin) 200 MG Tablet 1 tablet Orally Twice a day , Taking Fluocinonide 0.05 % Solution 1 application Externally Once a day- as needed , Taking Folic Acid , Taking Hydroxychloroquine Sulfate 400 MG Tablet 1 capsule Orally once daily , Taking Imuran(azaTHIOprine) 50 MG Tablet 3 tablets Orally once daily , Taking KlonoPIN(clonazePAM) 0.5 MG Tablet 1 tablet Orally Once a day prn , Taking Methocarbamol 750 MG Tablet 1 tablet Orally Q HS prn , Taking Metoprolol Tartrate 50 MG Tablet TAKE 2 TABLETS BY MOUTH TWICE A DAY WITH FOOD , Taking Nystatin 263522 UNIT/ML Suspension 4 mL Mouth/Throat Four times a day , Taking Pantoprazole Sodium 40 MG Tablet Delayed Release 1 tablet 1/2 to 1 hour before morning meal Orally Once a day , Taking predniSONE 10 MG Tablet 1 tablet Orally once daily , Taking Pregabalin 75 MG Capsule 3 capsule Orally once daily- as needed , Taking Triamcinolone Acetonide 0.025 % Lotion APPLY TO AFFECTED AREA TWICE DAILY NEEDED FOR 30 DAYS External , Taking Trulicity(Dulaglutide) 1.5 MG/0.5ML Solution Auto-injector as directed Subcutaneous weekly , Taking Vancomycin HCl 125 MG Capsule 1 capsule Orally Once a day , Taking Vitamin D (Ergocalciferol) 1.25 MG (30243 UT) Capsule 1 capsule Orally once weekly , Taking Voltaren 1 % Gel as directed Externally as needed , Notes: Apply up to 4 g to each affected area up to 4 times daily, Medication List reviewed and reconciled with the patient * Allergies: B actrim: GI upset, Codeine: jittery, Clindamycin: unknown, Latex: rash, Sulfa Antibiotics: swelling, Trimethoprim: unknown. Objective: * Vitals: H t: 67 in, Ht-cm: 170.18 cm. Assessment: * Assessment: 1. D iarrhea - R19.7 (Primary) 2 . G ERD (gastroesophageal reflux disease) - K21.9 3 . G eneralized enlarged lymph nodes - R59.1 Plan: * Treatment: 2. G ERD (gastroesophageal reflux disease) L AB: H. pylori Stool Ag, EIA 3. G eneralized enlarged lymph nodes Refill Clotrimazole Bk, 10 MG, 1 bk while on immunosuppressive medicine, Mouth/Throat, Three times a day, 30 day(s), 90. * Procedure Codes: 9 8967 TELEPHONE ASSESS 11-20MIN * Follow Up: p rn * * Electronic signature of Kristen Moreno NP, ROUNDING MACHINE OPERATOR.CAREER ADVISOR.[email or web address] on 10/24/2024 at 10:10 AM EDT Sign off status: Pending Visit Status: Ananya BROWN (Check Out) * Provider: Abiola De La Torre ([facility]), CAREER ADVISOR Date: 10/23/2024 Generated for Rosalee bustillo/Alfred/eTransmitting on: 10/24/2024 10:10 AM EDT History and Physical Notes * HPI (History of Present Illness) Category Sub-Category Detail Notes Category Not es General diarrhea can have standing order stool testing wonders if has h pylori heart palpitations tend to get worse after eats [facility], counseling and than will see psych klonopin helping with anxiety
--- OUTSIDE RECORDS SUMMARY | 2024-10-24 10:10 | XMS_ITS | Encounter Summary ---
Author Organization [facility] Address [facility] [place] [address] Care Team Providers Care Manager Assembly Name Role Phone Manuel Klein MD Unavailable [phone] Manuel Kelin MD Primary Care Provider +-[phone] Manuel Klein MD Unavailable [phone] Source Comments In the event this information is protected by the Federal Confidentiality of Alcohol and Drug AbusePatient Records regulations: The Federal rules restrict any use of the information to criminally investigate or prosecute any alcohol or drug abuse patient.[facility] Encounter Details Date Type Department Care Team (Late st Contact Info) Description 10/29/2022 Patient Msg Integrated Medicine [address] [place] [address] Christie Phan MD [address] [place] [address] Trulicity Social History Tobacco Use Types Packs/Day Years Used Date Smoking Tobacco: Every Day Cigarettes 1 20 Smokeless Tobacco: Never Alcohol Use Standard Drinks/Week Comments No 0 (1 standard drink = 0.6 oz pur e alcohol) PHQ-2 Answer Date Recorded PHQ-2 score 1 10/20/2022 Area Deprivation Index Answer Date Constantino rded National Score (1-100), lower number is lower ri sk 59 09/24/2022 State Score (1-10), lower number is lower risk 4 09/24/2022 Data from: https://www.neighborhoodatlas.medicine.[facility]/. Last address used for calculation [address] 09/24/2022 Comments No Sex and Gender Information [...] 11:14 AM EDT Chichi De Jesus documented as of this encounter Mental Status * Because of a physical, mental, or emotional condition, do you have serious difficulty concentrating, remembering, or making decisions? Answer Entry Date Author No 12/25/2014 11:14 AM EDT Chichi De Jesus documented in this encounter Plan of Treatment Upcoming Encounters Date Type Department Care Team (Latest Contact Info) Description 11/01/2024 9:00 AM EDT [facility] Center Hematology/Oncology [address] [place] [address] IVIG q 4 weeks with B 12 inj and lab 11/29/2024 8:45 AM EDT Office Visit [facility] [address] [place] [address] 3 mo F/U-IVIG(slow infusion per pt request/B12 +/-IV iron lab 11/29/2024 9:00 AM EDT Visit (SP) Office Hematology/Oncology [address] [place] [address] Fara Lopez APRN.SUPERVISOR OPERATIONS [address] [place] [address] 3 mo F/U-IVIG(slow infusion per pt request/B12 +/-IV iron lab 11/29/2024 9:30 AM EDT Infusion Center Hematology/Oncology [address] [place] [address] 3 mo F/U-IVIG(slow infusion per pt request/B12 +/-IV iron lab documented as of this encounter Visit Diagnoses Not on filedocumented in this encounter Care Teams Manager Assembly Relationship Specialty Start Date End Date Manuel Klein MD PCP - General Family Medicine 02/27/22 Manuel Klein MD Referring Family Medicine 02/12/22 Manuel Klein MD [facility] [place] [address] Referring Family Medicine 07/06/24 documented as of this encounter
--- OUTSIDE RECORDS SUMMARY | 2024-10-24 10:10 | XMS_ITS ---
Author Organization [facility] Address [address] [place] [address] Care Team Providers Care Refrigeration Houseman Name Role Phone Manuel Klein MD Unavailable [phone] Manuel Klein MD Primary Care Provider [phone] Manuel Klein MD Unavailable [phone] Lupus Status:Completed (Closed) Start date:03/20/2024 Enrollment date:03/20/2024 End date:10/17/2024 Close reason:Unable to Reach - No Response to Outreach Attempts Linked medications:belimumab (Active) Linked problems:Discoid lupus erythematosus (Active), Systemic lupus erythematosus (HCC) (Active) Continued Care and Services Coordination
--- OUTSIDE RECORDS SUMMARY | 2024-10-24 10:10 | XMS_ITS | Encounter Summary ---
Author Organization [facility] Address [address] [place] [address] Care Team Providers Care Insurance Agency Manager Name Role Phone Britt Gay(Historical) SHINGLES ROOFER.DRAFTER HEATING AND VENTILATING Primary Care Provider Unavailable Manuel Klein MD Unavailable [phone] Manuel Klein MD Primary Care Provider +-4 Manuel Klein MD Unavailable [phone] Source Comments In the event this information is protected by the Federal Confidentiality of Alcohol and Drug AbusePatient Records regulations: The Federal rules restrict any use of the information to criminally investigate or prosecute any alcohol or drug abuse patient.[facility] Encounter Details Date Type Department Care Team (Late st Contact Info) Description 02/24/2022 Get Medical Advice Infectious Disease [address] [place] [address] Tiffany Head DO [address] [place] [address] Test results Social History Tobacco Use Types Packs/Day Years Used Date Smoking Tobacco: Every Day Cigarettes 1 20 Smokeless Tobacco: Never Alcohol Use Standard Drinks/Week Comments No 0 (1 standard drink = 0.6 oz pur e alcohol) PHQ-2 Answer Date Recorded PHQ-2 score 0 02/26/2021 Area Deprivation Index Answer Date Constantino rded National Score (1-100), lower number is lower ri sk Not on file 08/09/2020 State Score (1-10), lower number is lower risk N ot on file 08/09/2020 Data from: https://www.neighborhoodatlas.medicine.[facility]/. Last address used for calculation Not on file 08/09/2020 Comments No Sex and Gender Information Value [...] Entry Date Author No 12/25/2014 11:14 AM JEANETTET Chichi De Jesus documented in this encounter Plan of Treatment Upcoming Encounters Date Type Department Care Team (Latest Contact Info) Description 11/01/2024 9:00 AM EDT Infusion Center Hematology/Oncology [address] [place] [address] [place] [address] IVIG q 4 weeks with B 12 inj and lab 11/29/2024 8:45 AM EDT Office Visit [facility] Laboratory [address] [place] [address] 3 mo F/U-IVIG(slow infusion per pt request/B12 +/-IV iron lab 11/29/2024 9:00 AM EDT Visit (SP) Office Hematology/Oncology [address] [place] [address] Fara Lopez, SHINGLES ROOFER.DRAFTER HEATING AND VENTILATING [address] [place] [address] 3 mo F/U-IVIG(slow infusion per pt request/B12 +/-IV iron lab 11/29/2024 9:30 AM EDT Infusion Center Hematology/Oncology [address] [place] [address] [place] [address] 3 mo F/U-IVIG(slow infusion per pt request/B12 +/-IV iron lab documented as of this encounter Visit Diagnoses Not on filedocumented in this encounter Care Teams Insurance Agency Manager Relationship Specialty Start Date End Date Gay De La Torre(Historical), SHINGLES ROOFER.DRAFTER HEATING AND VENTILATING PCP - General Family Medicine 10/24/21 02/26/22 Manuel Klein MD PCP - General Family Medicine 02/27/22 Manuel Klein MD Referring Family Medicine 02/12/22 Manuel Klein MD [address] [place] [address] Referring Family Medicine 07/06/24 documented as of this encounter
--- OUTSIDE RECORDS SUMMARY | 2024-10-24 10:10 | XMS_ITS | Encounter Summary ---
Author Organization [facility] Address [address] [place] [address] Care Team Providers Care Jd Edwards Developer Name Role Phone Manuel Klein MD Unavailable [phone] Manuel Klein MD Primary Care Provider +-4 Manuel Klein MD Unavailable [phone] Source Comments In the event this information is protected by the Federal Confidentiality of Alcohol and Drug AbusePatient Records regulations: The Federal rules restrict any use of the information to criminally investigate or prosecute any alcohol or drug abuse patient.[facility] Encounter Details Date Type Department Care Team (Late st Contact Info) Description 10/02/2022 Get Medical Advice Integrative and Lifestyle Medicine [address] [place] [address] Christie Phan MD [address], [place] [address] Trulicity Social History Tobacco Use Types Packs/Day Years Used Date Smoking Tobacco: Every Day Cigarettes 1 20 Smokeless Tobacco: Never Alcohol Use Standard Drinks/Week Comments No 0 (1 standard drink = 0.6 oz pur e alcohol) PHQ-2 Answer Date Recorded PHQ-2 score 1 07/23/2022 Area Deprivation Index Answer Date Constantino rded National Score (1-100), lower number is lower ri sk 59 09/24/2022 State Score (1-10), lower number is lower risk 4 09/24/2022 Data from: https://www.neighborhoodatlas.medicine.[facility]/. Last address used for calculation [address] 09/24/2022 Comments No Sex and Gender [...] Info) Description 11/01/2024 9:00 AM EDT [facility] Center Hematology/Oncology [address] [place] [address] IVIG q 4 weeks with B 12 inj and lab 11/29/2024 8:45 AM EDT Office Visit [facility] Laboratory [address] [place] [address] 3 mo F/U-IVIG(slow infusion per pt request/B12 +/-IV iron lab 11/29/2024 9:00 AM EDT Visit (SP) Office Hematology/Oncology [address] [place] [address] Fara Lopez APRN.MAINTENANCE ENGINEER OIL FIELD [address] [place] [address] 3 mo F/U-IVIG(slow infusion per pt request/B12 +/-IV iron lab 11/29/2024 9:30 AM EDT Infusion Center Hematology/Oncology [address] [facility] [facility] [place] [address] 3 mo F/U-IVIG(slow infusion per pt request/B12 +/-IV iron lab documented as of this encounter Visit Diagnoses Not on filedocumented in this encounter Care Teams Jd Edwards Developer Relationship Specialty Start Date End Date Manuel Klein MD PCP - General Family Medicine 02/27/22 Manuel Klein MD Referring Family Medicine 02/12/22 Manuel Klein MD [address] [place] [address] Referring Family Medicine 07/06/24 documented as of this encounter
--- OUTSIDE RECORDS SUMMARY | 2024-10-24 10:10 | XMS_ITS | Encounter Summary ---
Author Organization [facility] Address [address] [place] [address] Care Team Providers Care Manager Privacy Name Role Phone Manuel Klein MD Unavailable [phone] Manuel Klein MD Primary Care Provider +-4 Manuel Klein MD Unavailable [phone] Source Comments In the event this information is protected by the Federal Confidentiality of Alcohol and Drug AbusePatient Records regulations: The Federal rules restrict any use of the information to criminally investigate or prosecute any alcohol or drug abuse patient.[facility] Encounter Details Date Type Department Care Team (Late st Contact Info) Description 02/27/2022 Get Medical Advice Infectious Disease [address] [place] [address] Tiffany Head DO [address] [place] [address] Blood work Social History Tobacco Use Types Packs/Day Years [...] N ot on file 08/09/2020 Data from: https://www.neighborhoodatlas.medicine.[facility]/. Last address used for calculation Not on [...] Contact Info) Description 11/01/2024 9:00 AM EDT [facility] Center Hematology/Oncology [address] [facility] [place] [address] IVIG q 4 weeks with B 12 inj and lab 11/29/2024 8:45 AM EDT Office Visit [facility] Laboratory [address] [place] [address] 3 mo F/U-IVIG(slow infusion per pt request/B12 +/-IV iron lab 11/29/2024 9:00 AM EDT Visit (SP) Office Hematology/Oncology [address] [facility] [place] [address] Fara Lopez APRN.CYBER TRANSPORT SYSTEMS SPECIALIST [address] [facility] [facility] [place] [address] 3 mo F/U-IVIG(slow infusion per pt request/B12 +/-IV iron lab 11/29/2024 9:30 AM EDT Infusion Center Hematology/Oncology [address] [facility] [place] [address] 3 mo F/U-IVIG(slow infusion per pt request/B12 +/-IV iron lab documented as of this encounter Visit Diagnoses Not on filedocumented in this encounter Care Teams Manager Privacy Relationship Specialty Start Date End Date Manuel Klein MD PCP - General Family Medicine 02/27/22 Manuel Klein MD Referring Family Medicine 02/12/22 Manuel Klein MD [address] [place] [address] Referring Family Medicine 07/06/24 documented as of this encounter
--- OUTSIDE RECORDS SUMMARY | 2024-10-24 10:10 | XMS_ITS | Encounter Summary ---
Author Organization [facility] Address [address] [place] [address] Care Team Providers Care Grainer Machine Name Role Phone Gay De La Torre(Historical) SALES REPRESENTATIVE JEWELRY.VOCATIONAL REHABILITATION ADMINISTRATOR Primary Care Provider Unavailable Manuel Klein MD Unavailable [phone] Manuel Klein MD Primary Care Provider +- Manuel Klein MD Unavailable [phone] Source Comments In the event this information is protected by the Federal Confidentiality of Alcohol and Drug AbusePatient Records regulations: The Federal rules restrict any use of the information to criminally investigate or prosecute any alcohol or drug abuse patient.[facility] Encounter Details Date Type Department Care Team (Late st Contact Info) Description 08/13/2021 Patient Msg Rheumatology [address] [place] [address] Provider, Ccf Please Review Changes in Upcoming Appointment Social History Tobacco Use Types Packs/Day Years [...] N ot on file 08/09/2020 Data from: https://www.neighborhoodatlas.medicine.[facility]/. Last address used for calculation Not on [...] 11/01/2024 9:00 AM EDT Infusion Center Hematology/Oncology [address] [place] [address] [place] [address] IVIG q 4 weeks with B 12 inj and lab 11/29/2024 8:45 AM EDT Office Visit [facility] [address] [place] [address] [place] [address] 3 mo F/U-IVIG(slow infusion per pt request/B12 +/-IV iron lab 11/29/2024 9:00 AM EDT Visit (SP) Office Hematology/Oncology [address] [place] [address] [place] [address] Fara Lopez, SALES REPRESENTATIVE JEWELRY.VOCATIONAL REHABILITATION ADMINISTRATOR [address] [place] [address] [place] [address] 3 mo F/U-IVIG(slow infusion per pt request/B12 +/-IV iron lab 11/29/2024 9:30 AM EDT Infusion Center Hematology/Oncology [address] [place] [address] [place] [address] 3 mo F/U-IVIG(slow infusion per pt request/B12 +/-IV iron lab documented as of this encounter Visit Diagnoses Not on filedocumented in this encounter Care Teams Grainer Machine Relationship Specialty Start Date End Date Gay De La Torre(Historical), SALES REPRESENTATIVE JEWELRY.VOCATIONAL REHABILITATION ADMINISTRATOR PCP - General Family Medicine 10/24/21 02/26/22 Manuel Klein MD PCP - General Family Medicine 02/27/22 Manuel Klein MD Referring Family Medicine 02/12/22 Manuel Klein MD [address] [place] [address] Referring Family Medicine 07/06/24 documented as of this encounter
--- OUTSIDE RECORDS SUMMARY | 2024-10-24 10:10 | XMS_ITS | Encounter Summary ---
Author Organization [facility] Address [address] [place] [address] Care Team Providers Care Power Sewing Machine Operator Name Role Phone Manuel Klein MD Unavailable [phone] Manuel Klein MD Primary Care Provider +-4 Manuel Klein MD Unavailable [phone] Source Comments In the event this information is protected by the Federal Confidentiality of Alcohol and Drug AbusePatient Records regulations: The Federal rules restrict any use of the information to criminally investigate or prosecute any alcohol or drug abuse patient.[facility] Encounter Details Date Type Department Care Team (Late st Contact Info) Description 05/05/2022 Patient Msg Home Respiratory Therapy [address] [place] [address] [place] [id number] Jami Rivera, PSS PAP Referral Delay Social History Tobacco Use Types Packs/Day Years Used Date Smoking Tobacco: Every Day Cigarettes 1 20 Smokeless Tobacco: Never Alcohol Use Standard Drinks/Week Comments No 0 (1 standard drink = 0.6 oz pur e alcohol) PHQ-2 Answer Date Recorded PHQ-2 score 0 04/12/2022 Area Deprivation Index Answer Date Constantino rded National Score (1-100), lower number is lower ri sk Not on file 08/09/2020 State Score (1-10), lower number is lower risk N ot on file 08/09/2020 Data from: https://www.neighborhoodatlas.medicine.[facility].edu/. Last address used for calculation Not on [...] 11/01/2024 9:00 AM EDT Infusion Center Hematology/Oncology [address] [place] [address] [place] [address] IVIG q 4 weeks with B 12 inj and lab 11/29/2024 8:45 AM EDT Office Visit [facility] [address] [place] [address] 3 mo F/U-IVIG(slow infusion per pt request/B12 +/-IV iron lab 11/29/2024 9:00 AM EDT Visit (SP) Office Hematology/Oncology [address] [facility] [place] [address] Fara Lopez APRN.[employer] [address] [facility] [place] [address] 3 mo F/U-IVIG(slow infusion per pt request/B12 +/-IV iron lab 11/29/2024 9:30 AM EDT Infusion Center Hematology/Oncology [address] [facility] [place] [address] 3 mo F/U-IVIG(slow infusion per pt request/B12 +/-IV iron lab documented as of this encounter Visit Diagnoses Not on filedocumented in this encounter Care Teams Power Sewing Machine Operator Relationship Specialty Start Date End Date Manuel Klein MD PCP - General Family Medicine 02/27/22 Manuel Klein MD Referring Family Medicine 02/12/22 Manuel Klein MD [address] [place] [address] Referring Family Medicine 07/06/24 documented as of this encounter
--- OUTSIDE RECORDS SUMMARY | 2024-10-24 10:10 | XMS_ITS | Encounter Summary ---
Author Organization [facility] Address [address] [place] [address] Care Team Providers Care Cover Making Machine Operator Name Role Phone Manuel Klein MD Unavailable [phone] Manuel Klein MD Primary Care Provider +-4 Manuel Klein MD Unavailable [phone] Source Comments In the event this information is protected by the Federal Confidentiality of Alcohol and Drug AbusePatient Records regulations: The Federal rules restrict any use of the information to criminally investigate or prosecute any alcohol or drug abuse patient.[facility] Encounter Details Date Type Department Care Team (Late st Contact Info) Description 03/26/2022 Patient Msg Allergy [address] [place] [phone] Misty Nelson MD [facility] [place] [address] lab results Social History Tobacco Use Types Packs/Day Years Used Date Smoking Tobacco: Every Day Cigarettes 1 20 Smokeless Tobacco: Never Alcohol Use Standard Drinks/Week Comments No 0 (1 standard drink = 0.6 oz pur e alcohol) PHQ-2 Answer Date Recorded PHQ-2 score 1 03/17/2022 Area Deprivation Index Answer Date Constantino rded National Score (1-100), lower number is lower ri sk Not on file 08/09/2020 State Score (1-10), lower number is lower risk N ot on file 08/09/2020 Data from: https://www.neighborhoodatlas.medicine.[facility]/. Last address used for calculation Not on file 08/09/2020 Comments No Sex and Gender Information Value Date Recorded Sex Assigned at Not on file Legal Sex Female 2:51 PM EST Gender Identity Not on file Sexual Orientation Not on file COVID-19 Exposure Response Date Recorded In the last 10 days, have yo u been in contact with someone who was confirmed or suspected to have Coronavirus/COVID-19? No / Unsure 03/17/2022 1:02 PM EDT documented as of this encounter Functional Status [...] Contact Info) Description 11/01/2024 9:00 AM EDT [facility] Center Hematology/Oncology [address] [place] [address] [place] [address] IVIG q 4 weeks with B 12 inj and lab 11/29/2024 8:45 AM EDT Office Visit [facility] Laboratory [address] [facility] [place] [address] 3 mo F/U-IVIG(slow infusion per pt request/B12 +/-IV iron lab 11/29/2024 9:00 AM EDT Visit (SP) Office Hematology/Oncology [address] [facility] [place] [address] Fara Lopez APRN.SERVICER [address] [facility] [place] [address] 3 mo F/U-IVIG(slow infusion per pt request/B12 +/-IV iron lab 11/29/2024 9:30 AM EDT Infusion Center Hematology/Oncology [address] [facility] [place] [address] 3 mo F/U-IVIG(slow infusion per pt request/B12 +/-IV iron lab documented as of this encounter Visit Diagnoses Not on filedocumented in this encounter Care Teams Cover Making Machine Operator Relationship Specialty Start Date End Date Manuel Klein MD PCP - General Family Medicine 02/27/22 Manuel Klein MD Referring Family Medicine 02/12/22 Manuel Klein MD [address] [place] [address] Referring Family Medicine 07/06/24 documented as of this encounter
--- OUTSIDE RECORDS SUMMARY | 2024-10-24 10:10 | XMS_ITS | Encounter Summary ---
Author Organization [facility] Address [address] [place] [address] Care Team Providers Care Coin Box Collector Name Role Phone Manuel Klein MD Unavailable [phone] Manuel Klein MD Primary Care Provider +-4 Manuel Klein MD Unavailable [phone] Source Comments In the event this information is protected by the Federal Confidentiality of Alcohol and Drug AbusePatient Records regulations: The Federal rules restrict any use of the information to criminally investigate or prosecute any alcohol or drug abuse patient.[facility] Encounter Details Date Type Department Care Team (Late st Contact Info) Description 03/18/2022 Get Medical Advice Hematology/Oncology [place] [address] Jose Cho MD [facility] [place] [address] Blood work Social History Tobacco Use Types [...] N ot on file 08/09/2020 Data from: https://www.neighborhoodatlas.[facility]/. Last address used for calculation Not on [...] Chichi De Jesus documented in this encounter Miscellaneous Notes * Telephone Encounter - Jose Cho MD - 03/18/2022 4:46 PM EDT Thank you for letting me know - I will let you know after everything comes back. No specific application for me though. Sunny, Dr. Zhou documented in this encounter Plan of Treatment Upcoming Encounters Date Type Department Care Team (Latest Contact Info) Description 11/01/2024 9:00 AM EDT Infusion Center Hematology/Oncology [address] [place] [address] [place] [address] IVIG q 4 weeks with B 12 inj and lab 11/29/2024 8:45 AM EDT Office Visit [facility] Laboratory [address] [place] [address] [place] [address] 3 mo F/U-IVIG(slow infusion per pt request/B12 +/-IV iron lab 11/29/2024 9:00 AM EDT Visit (SP) Office Hematology/Oncology [address] [place] [address] [place] [address] Fara Lopez APRN.ALLERGIST/IMMUNOLOGIST PHYSICIAN [address] [facility] [place] [address] 3 mo F/U-IVIG(slow infusion per pt request/B12 +/-IV iron lab 11/29/2024 9:30 AM EDT Infusion Center Hematology/Oncology [address] [place] [address] [place] [address] 3 mo F/U-IVIG(slow infusion per pt request/B12 +/-IV iron lab documented as of this encounter Visit Diagnoses Not on filedocumented in this encounter Care Teams Coin Box Collector Relationship Specialty Start Date End Date Manuel Klein MD PCP - General Family Medicine 02/27/22 Manuel Klein MD Referring Family Medicine 02/12/22 Manuel Klein MD [address] [place] [address] Referring Family Medicine 07/06/24 documented as of this encounter
--- OUTSIDE RECORDS SUMMARY | 2024-10-24 10:10 | XMS_ITS | Encounter Summary ---
Author Organization [facility] Address [facility] [place] [address] Care Team Providers Care Accounting Tutor Name Role Phone Manuel Klein MD Unavailable [phone] Manuel Klein MD Primary Care Provider +-4 Manuel Klein MD Unavailable [phone] Source Comments In the event this information is protected by the Federal Confidentiality of Alcohol and Drug AbusePatient Records regulations: The Federal rules restrict any use of the information to criminally investigate or prosecute any alcohol or drug abuse patient.[facility] Encounter Details Date Type Department Care Team (Late st Contact Info) Description 04/10/2023 Patient Msg Integrated Medicine [address] [place] [address] Christie Phan MD [address] [place] [address] Labs Social History Tobacco Use Types Packs/Day Years Used Date Smoking Tobacco: Every Day Cigarettes 1 20 Smokeless Tobacco: Never Alcohol Use Standard Drinks/Week Comments No 0 (1 standard drink = 0.6 oz pur e alcohol) PHQ-2 Answer Date Recorded PHQ-2 score 0 02/18/2023 Area Deprivation Index Answer Date Constantino rded National Score (1-100), lower number is lower ri sk 59 09/24/2022 State Score (1-10), lower number is lower risk 4 09/24/2022 Data from: https://www.neighborhoodatlas.medicine.[facility]/. Last address used for calculation [address] 09/24/2022 Comments No Sex and Gender [...] Contact Info) Description 11/01/2024 9:00 AM EDT [facility] Center Hematology/Oncology [address] [place] [address] [place] [address] IVIG q 4 weeks with B 12 inj and lab 11/29/2024 8:45 AM EDT Office Visit [facility] Laboratory [address] [place] [address] [place] [address] 3 mo F/U-IVIG(slow infusion per pt request/B12 +/-IV iron lab 11/29/2024 9:00 AM EDT Visit (SP) Office Hematology/Oncology [address] [place] [address] Fara Lopez APRN.LEGAL COORDINATOR [address] [place] [address] 3 mo F/U-IVIG(slow infusion per pt request/B12 +/-IV iron lab 11/29/2024 9:30 AM EDT Infusion Center Hematology/Oncology [address] [place] [address] 3 mo F/U-IVIG(slow infusion per pt request/B12 +/-IV iron lab documented as of this encounter Visit Diagnoses Not on filedocumented in this encounter Care Teams Accounting Tutor Relationship Specialty Start Date End Date Manuel Klein MD PCP - General Family Medicine 02/27/22 Manuel Klein MD Referring Family Medicine 02/12/22 Manuel Klein MD [address] [place] [address] Referring Family Medicine 07/06/24 documented as of this encounter
--- OUTSIDE RECORDS SUMMARY | 2024-10-24 10:10 | XMS_ITS | Encounter Summary ---
Author Organization [facility] Address [facility] [place] [address] Care Team Providers Care Walnut Dehydrator Operator Name Role Phone Manuel Klein MD Unavailable [phone] Manuel Klein MD Primary Care Provider +-4 Manuel Klein MD Unavailable [phone] Source Comments In the event this information is protected by the Federal Confidentiality of Alcohol and Drug AbusePatient Records regulations: The Federal rules restrict any use of the information to criminally investigate or prosecute any alcohol or drug abuse patient.[facility] Encounter Details Date Type Department Care Team (Late st Contact Info) Description 02/11/2023 Patient [facility] HB-3 [address] [place] [address] Provider, Ccf Huseyin Approved - Action Needed! Social History Tobacco Use Types Packs/Day Years [...] is lower risk 4 09/24/2022 Data from: https://www.neighborhoodatlas.medicine.[facility].edu/. Last address used for calculation [address] 09/24/2022 Comments No Sex and Gender [...] 11/01/2024 9:00 AM EDT Infusion Center Hematology/Oncology [address] [place] [address] IVIG q 4 weeks with B 12 inj and lab 11/29/2024 8:45 AM EDT Office Visit [facility] Laboratory [address] [place] [address] 3 mo F/U-IVIG(slow infusion per pt request/B12 +/-IV iron lab 11/29/2024 9:00 AM EDT Visit (SP) Office Hematology/Oncology [address] [facility] [place] [address] Fara Lopez APRN.DIGITIZER [address] [facility] [place] [address] 3 mo F/U-IVIG(slow infusion per pt request/B12 +/-IV iron lab 11/29/2024 9:30 AM EDT Infusion Center Hematology/Oncology [address] [facility] [place] [address] 3 mo F/U-IVIG(slow infusion per pt request/B12 +/-IV iron lab documented as of this encounter Visit Diagnoses Not on filedocumented in this encounter Care Teams Walnut Dehydrator Operator Relationship Specialty Start Date End Date Manuel Klein MD PCP - General Family Medicine 02/27/22 Manuel Klein MD Referring Family Medicine 02/12/22 Manuel Klein MD [address] [place] [address] Referring Family Medicine 07/06/24 documented as of this encounter
--- OUTSIDE RECORDS SUMMARY | 2024-10-24 10:10 | XMS_ITS | Encounter Summary ---
Author Organization [facility] Address [address] [place] [address] Care Team Providers Care Cutting And Creasing Press Operator Name Role Phone Britt Gay(Historical) TAX SERVICES PROFESSIONAL.METAL CUT OFF SAW TENDER Primary Care Provider Unavailable Manuel Klein MD Unavailable [phone] Manuel Klein MD Primary Care Provider +-4 Manuel Klein MD Unavailable [phone] Source Comments In the event this information is protected by the Federal Confidentiality of Alcohol and Drug AbusePatient Records regulations: The Federal rules restrict any use of the information to criminally investigate or prosecute any alcohol or drug abuse patient.[facility] Encounter Details Date Type Department Care Team (Late st Contact Info) Description 05/04/2021 Get Medical Advice Rheumatology [address] [facility] [place], [place] [id number] Sandra Park MD [address] [place], [place] [id number] Lupus diagnosis from dermatology Social History Tobacco Use Types Packs/Day Years [...] N ot on file 08/09/2020 Data from: https://www.neighborhoodatlas.medicine.[facility]/. Last address used for calculation Not [...] 12/25/2014 11:14 AM JEANETTET Chichi De Jesus * Do you have serious difficulty walking or climbing stairs? Answer Date of Assessment Author Yes 12/25/2014 11:14 AM JEANETTET Chichi De Jesus * Do you have difficulty dressing or bathing? Answer Date of Assessment Author Yes 12/25/2014 11:14 AM EDT Chichi De Jesus * Because of a physical, mental, or emotional condition, do you have difficulty doing errands alone such as visiting a doctor's office or shopping? Answer Date of Assessment Author No 12/25/2014 11:14 AM Chichi Riggins documented as of this encounter Mental Status * Because of a physical, mental, or emotional condition, do you have serious difficulty concentrating, remembering, or making decisions? Answer Entry Date Author No 12/25/2014 11:14 AM Chichi Riggins documented in this encounter Miscellaneous Notes * Telephone Encounter - Sandra Park MD - 05/05/2021 7:56 PM EST Patient's request for medication is as follows: Signed Prescriptions Disp Refills hydrOXYchloroQUINE (PLAQUENIL) 200 mg tablet 180 tablet 3 Sig: Take one tab by mouth twice a day with food. Sunscreen when outdoors. See ophthalmology every 6-12months on med. MARILYN: No Prescription(s) as above. Please process accordingly. Sandra Park MD documented in this encounter Plan of Treatment Upcoming Encounters Date Type Department Care Team (Latest Contact Info) Description 11/01/2024 9:00 AM EDT Infusion Center Hematology/Oncology [address] [place] [address] [place] [address] IVIG q 4 weeks with B 12 inj and lab 11/29/2024 8:45 AM EDT Office Visit [facility] Laboratory [address] [place] [address] [place] [address] 3 mo F/U-IVIG(slow infusion per pt request/B12 +/-IV iron lab 11/29/2024 9:00 AM EDT Visit (SP) Office Hematology/Oncology [address] [place] [address] [place] [address] Fara Lopez, TAX SERVICES PROFESSIONAL.METAL CUT OFF SAW TENDER [address] [place] [address] [place] [address] 3 mo F/U-IVIG(slow infusion per pt request/B12 +/-IV iron lab 11/29/2024 9:30 AM EDT Infusion Center Hematology/Oncology [address] [place] [address] [place] [address] 3 mo F/U-IVIG(slow infusion per pt request/B12 +/-IV iron lab documented as of this encounter Visit Diagnoses Diagnosis CHRISTIAN positive- Primary Other and unspecified nonspecific immunological findings Other systemic lupus erythematosus with other organ involvement (HCC) documented in this encounter Care Teams Cutting And Creasing Press Operator Relationship Specialty Start Date End Date Gay De La Torre(Historical), TAX SERVICES PROFESSIONAL.METAL CUT OFF SAW TENDER PCP - General Family Medicine 10/24/21 02/26/22 Manuel Klein MD PCP - General Family Medicine 02/27/22 Manuel Klein MD Referring Family Medicine 02/12/22 Manuel Klein MD [address] [place] [id number] Referring Family Medicine 07/06/24 documented as of this encounter
--- OUTSIDE RECORDS SUMMARY | 2024-10-24 10:10 | XMS_ITS | Encounter Summary ---
Author Organization [facility] Address [facility] [place] [address] Care Team Providers Care Licensed Embalmer Name Role Phone Manuel Klein MD Unavailable [phone] Manuel Klein MD Primary Care Provider +-4 Manuel Klein MD Unavailable [phone] Source Comments In the event this information is protected by the Federal Confidentiality of Alcohol and Drug AbusePatient Records regulations: The Federal rules restrict any use of the information to criminally investigate or prosecute any alcohol or drug abuse patient.[facility] Encounter Details Date Type Department Care Team (Late st Contact Info) Description 03/04/2023 Patient [facility] HB-3 [address] [place] [address] Provider, Ccf Benlysta Injection Video Social History Tobacco Use Types Packs/Day Years [...] is lower risk 4 09/24/2022 Data from: https://www.neighborhoodatlas.medicine.[facility].edu/. Last address used for calculation [address] 09/24/2022 Comments No Sex and Gender [...] 9:00 AM EDT Infusion Center Hematology/Oncology [address] [place] [address] IVIG q 4 weeks with B 12 inj and lab 11/29/2024 8:45 AM EDT Office Visit [facility] [address] [facility] [place] [place] [address] 3 mo F/U-IVIG(slow infusion per pt request/B12 +/-IV iron lab 11/29/2024 9:00 AM EDT Visit (SP) Office Hematology/Oncology [address] [place] [address] Fara Lopez APRN.[employer] [address] [place] [place] [address] 3 mo F/U-IVIG(slow infusion per pt request/B12 +/-IV iron lab 11/29/2024 9:30 AM EDT Infusion Center Hematology/Oncology [address] [place] [address] 3 mo F/U-IVIG(slow infusion per pt request/B12 +/-IV iron lab documented as of this encounter Visit Diagnoses Not on filedocumented in this encounter Care Teams Licensed Embalmer Relationship Specialty Start Date End Date Manuel Klein MD PCP - General Family Medicine 02/27/22 Manuel Klein MD Referring Family Medicine 02/12/22 Manuel Klein MD [facility] [place] [address] Referring Family Medicine 07/06/24 documented as of this encounter
--- OUTSIDE RECORDS SUMMARY | 2024-10-24 10:10 | XMS_ITS | Encounter Summary ---
Author Organization [facility] Address [address] [place] [address] Care Team Providers Care Robotic Toy Inventor Name Role Phone Manuel Klein MD Unavailable [phone] Manuel Klein MD Primary Care Provider +-4 Manuel Klein MD Unavailable [phone] Source Comments In the event this information is protected by the Federal Confidentiality of Alcohol and Drug AbusePatient Records regulations: The Federal rules restrict any use of the information to criminally investigate or prosecute any alcohol or drug abuse patient.[facility] Encounter Details Date Type Department Care Team (Late st Contact Info) Description 10/16/2022 Get Medical Advice Integrative and Lifestyle Medicine [address] [place] [address] Christie Phan MD [address], [place] [address] Trulicity Social History Tobacco Use [...] is lower risk 4 09/24/2022 Data from: https://www.neighborhoodatlas.medicine.[facility]/. Last address used for calculation [address] 09/24/2022 Comments No Sex and Gender [...] [facility] Hemat[facility]Oncology [address] [place] [address] IVIG q 4 weeks with B 12 inj and lab 11/29/2024 8:45 AM EDT Office Visit [facility] [address] [place] [place] [address] 3 mo F/U-IVIG(slow infusion per pt request/B12 +/-IV iron lab 11/29/2024 9:00 AM EDT Visit (SP) Office Hematology/Oncology [address] [place] [place] [address] Fara Lopez APRN.SHAPER HAND [address] [place] [address] 3 mo F/U-IVIG(slow infusion per pt request/B12 +/-IV iron lab 11/29/2024 9:30 AM EDT Infusion Center Hematology/Oncology [address] [place] [place] [address] 3 mo F/U-IVIG(slow infusion per pt request/B12 +/-IV iron lab documented as of this encounter Visit Diagnoses Not on filedocumented in this encounter Care Teams Robotic Toy Inventor Relationship Specialty Start Date End Date Manuel Klein MD PCP - General Family Medicine 02/27/22 Manuel Klein MD Referring Family Medicine 02/12/22 Manuel Klein MD [address] [place] [address] Referring Family Medicine 07/06/24 documented as of this encounter
--- OUTSIDE RECORDS SUMMARY | 2024-10-24 10:10 | XMS_ITS | Encounter Summary ---
Author Organization [facility] Address [address] [place] [address] Care Team Providers Care Merchandise Supervisor Name Role Phone Manuel Klein MD Unavailable [phone] Manuel Klein MD Primary Care Provider +-4 Manuel Klein MD Unavailable [phone] Source Comments In the event this information is protected by the Federal Confidentiality of Alcohol and Drug AbusePatient Records regulations: The Federal rules restrict any use of the information to criminally investigate or prosecute any alcohol or drug abuse patient.[facility] Encounter Details Date Type Department Care Team (Latest Contact Info) Description 03/29/2024 Patient Msg [facility] [address] [place] [address] Akiko Cooper MD [address] [place] [address] breath test scheduling Social History Tobacco Use Types Packs/Day Years [...] lower risk 4 09/24/2022 Data from: https://www.neighborhoodatlas.medicine.[facility]/. Last address used for calculation [address] 09/24/2022 Comments No Sex and Gender [...] Assessment Author No 12/25/2014 11:14 AM EDT hCichi De Jesus * Do you have serious [...] Contact Info) Description 11/01/2024 9:00 AM EDT [facility] Hematology[facility]Oncology [address] [place] [address] IVIG q 4 weeks with B 12 inj and lab 11/29/2024 8:45 AM EDT Office Visit [facility] Laboratory [address] [place] [address] 3 mo F/U-IVIG(slow infusion per pt request/B12 +/-IV iron lab 11/29/2024 9:00 AM EDT Visit (SP) Office Hematology/Oncology [address] [place] [address] Fara Lopez APRN.FUEL CELL BATTERY TECHNICIAN [address] [place] [address] 3 mo F/U-IVIG(slow infusion per pt request/B12 +/-IV iron lab 11/29/2024 9:30 AM EDT Infusion Center Hematology/Oncology [address] [place] [address] [place] [address] 3 mo F/U-IVIG(slow infusion per pt request/B12 +/-IV iron lab documented as of this encounter Visit Diagnoses Not on filedocumented in this encounter Care Teams Merchandise Supervisor Relationship Specialty Start Date End Date Manuel Klein MD PCP - General Family Medicine 02/27/22 Manuel Klein MD Referring Family Medicine 02/12/22 Manuel Klein MD [facility] [place] [address] Referring Family Medicine 07/06/24 documented as of this encounter
--- OUTSIDE RECORDS SUMMARY | 2024-10-24 10:10 | XMS_ITS | Encounter Summary ---
Author Organization [facility] Address [address] [place] [address] Care Team Providers Care Cableman Name Role Phone Gay De La Torre(Historical) AIR FORCE PILOT.MARKETING COMMUNICATIONS LEADER Primary Care Provider Unavailable Manuel Klein MD Unavailable [phone] Manuel Klein MD Primary Care Provider +-4 Manuel Klein MD Unavailable [phone] Source Comments In the event this information is protected by the Federal Confidentiality of Alcohol and Drug AbusePatient Records regulations: The Federal rules restrict any use of the information to criminally investigate or prosecute any alcohol or drug abuse patient.[facility] Encounter Details Date Type Department Care Team (Late st Contact Info) Description 05/05/2021 Get Medical Advice Rheumatology [address] [place], [place] [id number] Sandra Park MD [address] [place], [place] [phone] Steroids Social History Tobacco Use Types Packs/Day Years [...] N ot on file 08/09/2020 Data from: https://www.neighborhoodatlas.[facility]/. Last address used for calculation Not [...] Telephone Encounter - Sandra Park MD - 05/06/2021 9:03 PM EST Patient's request for medication is as follows: Signed Prescriptions Disp Refills predniSONE (DELTASONE) 5 mg tablet 21 tablet 1 Sig: Day 1=6tabs with food, Day 2=5tabs, Day 3=4tabs, Day 4=3tabs, Day 5=2tabs, Day 6=1tab, No NSAIDs on med Prescription(s) as above. Please process accordingly. Sandra Park MD documented in this encounter Plan of Treatment Upcoming Encounters Date Type Department Care Team (Latest Contact Info) Description 11/01/2024 9:00 AM EDT Infusion Center Hematology/Oncology [address] [place] [address] [place] [address] IVIG q 4 weeks with B 12 inj and lab 11/29/2024 8:45 AM EDT Office Visit [facility] Laboratory [address] [place] [address] [place] [address] 3 mo F/U-IVIG(slow infusion per pt request/B12 +/-IV iron lab 11/29/2024 9:00 AM EDT Visit (SP) Office Hematology/Oncology [address] [place] [address] [place] [address] Fara Lopez, AIR FORCE PILOT.MARKETING COMMUNICATIONS LEADER [address] [place] [address] [place] [address] 3 mo F/U-IVIG(slow infusion per pt request/B12 +/-IV iron lab 11/29/2024 9:30 AM EDT Infusion Center Hematology/Oncology [address] [place] [address] [place] [address] 3 mo F/U-IVIG(slow infusion per pt request/B12 +/-IV iron lab documented as of this encounter Visit Diagnoses Diagnosis Other systemic lupus erythematosus with other organ involvement (HCC)- Primary documented in this encounter Care Teams Cableman Relationship Specialty Start Date End Date Gay De La Torre(Historical), AIR FORCE PILOT.MARKETING COMMUNICATIONS LEADER PCP - General Family Medicine 10/24/21 02/26/22 Manuel Klein MD PCP - General Family Medicine 02/27/22 Manuel Klein MD Referring Family Medicine 02/12/22 Manuel Klein MD [address] [place] [address] Referring Family Medicine 07/06/24 documented as of this encounter
--- OUTSIDE RECORDS SUMMARY | 2024-10-24 10:10 | XMS_ITS | Encounter Summary ---
Author Organization [facility] Address [address] [place] [address] Care Team Providers Care Manager Imaging Name Role Phone Manuel Klein MD Unavailable [phone] Manuel Klein MD Primary Care Provider +-4 Manuel Klein MD Unavailable [phone] Source Comments In the event this information is protected by the Federal Confidentiality of Alcohol and Drug AbusePatient Records regulations: The Federal rules restrict any use of the information to criminally investigate or prosecute any alcohol or drug abuse patient.[facility] Encounter Details Date Type Department Care Team (Late st Contact Info) Description 03/18/2022 Get Medical Advice Allergy [address] [place] [phone] Misty Nelson MD [address] [place] [address] Test results Social History Tobacco Use Types [...] N ot on file 08/09/2020 Data from: https://www.neighborhoodatlas.medicine.[facility]/. Last address used for calculation Not [...] encounter Miscellaneous Notes * Telephone Encounter - Ros Ashton RN - 03/18/2022 2:17 PM EDT Please see patient regarding lab results. documented in this encounter Plan of Treatment Upcoming Encounters Date Type Department Care Team (Latest Contact Info) Description 11/01/2024 9:00 AM EDT Infusion Center Hematology/Oncology [address] [place] [address] [place] [address] IVIG q 4 weeks with B 12 inj and lab 11/29/2024 8:45 AM EDT Office Visit [facility] Laboratory [address] [place] [address] [place] [address] 3 mo F/U-IVIG(slow infusion per pt request/B12 +/-IV iron lab 11/29/2024 9:00 AM EDT Visit (SP) Office Hematology/Oncology [address] [place] [address] [place] [address] Fara Lopez APRN.INSPECTOR TUBES [address] [address] 3 mo F/U-IVIG(slow infusion per pt request/B12 +/-IV iron lab 11/29/2024 9:30 AM EDT Infusion Center Hematology/Oncology [address] [place] [address] [place] [address] 3 mo F/U-IVIG(slow infusion per pt request/B12 +/-IV iron lab documented as of this encounter Visit Diagnoses Not on filedocumented in this encounter Care Teams Manager Imaging Relationship Specialty Start Date End Date Manuel Klein MD PCP - General Family Medicine 02/27/22 Manuel Klein MD Referring Family Medicine 02/12/22 Manuel Klein MD [address] [place] [facility] [place] [address] Referring Family Medicine 07/06/24 documented as of this encounter
--- OUTSIDE RECORDS SUMMARY | 2024-10-24 10:10 | XMS_ITS | Encounter Summary ---
Author Organization [facility] Address [address] [place] [address] Care Team Providers Care Assembler Aircraft Power Plant Name Role Phone Manuel Klein MD Unavailable [phone] Manuel Klein MD Primary Care Provider +-4 Manuel Klein MD Unavailable [phone] Source Comments In the event this information is protected by the Federal Confidentiality of Alcohol and Drug AbusePatient Records regulations: The Federal rules restrict any use of the information to criminally investigate or prosecute any alcohol or drug abuse patient.[facility] Encounter Details Date Type Department Care Team (Late st Contact Info) Description 12/24/2022 Patient Msg Allergy [address] [place] [phone] Misty Nelson MD [facility] [place] [address] Request an Appointment Social History Tobacco Use Types Packs/Day [...] is lower risk 4 09/24/2022 Data from: https://www.neighborhoodatlas.medicine.[facility]/. Last address used for calculation [address] 09/24/2022 Comments No Sex and Gender [...] 9:00 AM EDT [facility] Hematology/Oncology [address] [place] [address] [place] [address] IVIG q 4 weeks with B 12 inj and lab 11/29/2024 8:45 AM EDT Office Visit [facility] [address] [place] [address] [place] [address] 3 mo F/U-IVIG(slow infusion per pt request/B12 +/-IV iron lab 11/29/2024 9:00 AM EDT Visit (SP) Office Hematology/Oncology [address] [place] [address] Fara Lopez APRN.INTERPRETATIVE DANCER [address] [place] [address] 3 mo F/U-IVIG(slow infusion per pt request/B12 +/-IV iron lab 11/29/2024 9:30 AM EDT Infusion Center Hematology/Oncology [address] [place] [address] 3 mo F/U-IVIG(slow infusion per pt request/B12 +/-IV iron lab documented as of this encounter Visit Diagnoses Not on filedocumented in this encounter Care Teams Assembler Aircraft Power Plant Relationship Specialty Start Date End Date Manuel Klein MD PCP - General Family Medicine 02/27/22 Manuel Klein MD Referring Family Medicine 02/12/22 Manuel Klein MD [address] [facility] [place] [address] Referring Family Medicine 07/06/24 documented as of this encounter
--- OUTSIDE RECORDS SUMMARY | 2024-10-24 10:10 | XMS_ITS | Encounter Summary ---
Author Organization [facility] Address [address] [place] [address] Care Team Providers Care Liquor Bridge Operator Name Role Phone Aime Davidson MD, Lui Nunez Primary Care Provid er Gay De La Torre(Historical) BUSINESS SERVICES ASSISTANT.HIM CLERK Primary Care Provider Unavailable Manuel Klein MD Unavailable [phone] Manuel Klein MD Primary Care Provider [phone] Manuel Kelin MD Unavailable [phone] Source Comments In the event this information is protected by the Federal Confidentiality of Alcohol and Drug AbusePatient Records regulations: The Federal rules restrict any use of the information to criminally investigate or prosecute any alcohol or drug abuse patient.[facility] Encounter Details Date Type Department Care Team (Late st Contact Info) Description 12/25/2014 Get Medical Advice Internal Medicine [facility] [place] [address] Lui Salomon Jr., MD [address] [place] [address] Test Result Question Social History Tobacco Use Types Packs/Day Years Used Date Smoking Tobacco: Every Day Cigarettes 4 20 Alcohol Use Standard Drinks/Week Comments No 0 (1 standard drink = 0.6 oz pur e alcohol) Comments No Sex and Gender Information Value [...] 11/01/2024 9:00 AM EDT Infusion Center Hematology/Oncology [address] [place], [place] [address] [address] IVIG q 4 weeks with B 12 inj and lab 11/29/2024 8:45 AM EDT Office Visit [facility] [place] [address] 3 mo F/U-IVIG(slow infusion per pt request/B12 +/-IV iron lab 11/29/2024 9:00 AM EDT Visit (SP) Office Hematology/Oncology [address] [place], [place] [address] [address] Fara Lopez, BUSINESS SERVICES ASSISTANT.HIM CLERK [address] [place] [address] [place] [address] 3 mo F/U-IVIG(slow infusion per pt request/B12 +/-IV iron lab 11/29/2024 9:30 AM EDT Infusion Center Hematology/Oncology [address] [address] 3 mo F/U-IVIG(slow infusion per pt request/B12 +/-IV iron lab documented as of this encounter Visit Diagnoses Not on filedocumented in this encounter Care Teams Liquor Bridge Operator Relationship Specialty Start Date End Date Lui Salomon Jr., MD PCP - General Internal Medicine 05/31/14 07/08/20 Gay De La Torre(Historical), BUSINESS SERVICES ASSISTANT.HIM CLERK PCP - General Family Medicine 10/24/21 02/26/22 Manuel Klein MD PCP - General Family Medicine 02/27/22 Manuel Klein MD Referring Family Medicine 02/12/22 Manuel Klein MD [address] [place] [address] Referring Family Medicine 07/06/24 documented as of this encounter
--- OUTSIDE RECORDS SUMMARY | 2024-10-24 10:10 | XMS_ITS | Clinical Summary ---
Author Organization [facility] Address [address] [place] [address] Phone Care Team Providers Care Broadcast Operations Manager Name Role Phone Mitali, Michelle London SURGICAL FORCEPS FABRICATOR-PUBLICITY DIRECTOR Unavailable [phone] Kenneth Patel MD Unavailable [phone] Gay De La Torre SURGICAL FORCEPS FABRICATOR-PUBLICITY DIRECTOR Primary Care Provider Allergies Active Allergy Reactions Criticality Noted Date Comments Doxycycline Other,Unknown Low 01/19/2022 Patient states it was a long time ago and she did not have a severe reaction. She does not believe she is allergic, she just thinks she just experienced side effects. Sulfamethoxazole-Trimeth oprim Swelling,Other Low 02/24/2016 Patient states it was a long time ago and she did not have a severe reaction. She does not believe she is allergic, she just thinks she just experienced side effects. Medications predniSONE (Deltasone) 10 mg tablet Take 1 tablet (10 mg) by mouth once daily. 05/12/20 23 Active pregabalin (Lyrica) 75 mg capsule Take 1 capsule (75 mg) by mouth if needed. Active azaTHIOprine (Imuran) 50 mg tablet Take 3 tablets (150 mg) by mouth 3 times a day. 02/17/20 23 Active hydroxychloroquine (Plaquenil) 200 mg tablet Take 1 tablet (200 mg) by mouth 2 times a day. Active belimumab (Benlysta) 200 mg/mL injection Inject 1 mL (200 mg) under the skin 1 (one) time per week. 02/05/20 23 Active aspirin 81 mg chewable tablet Chew 1 tablet (81 mg) once daily. Active acetaminophen (Tylenol) 500 mg tablet Take 2 tablets (1,000 mg) by mouth every 8 hours if needed for mild pain (1 - 3), moderate pain (4 - 6), headaches or fever (temp greater than 38.0 C). Active clindamycin phosphate 1 % gel, once daily Apply topically once daily. 05/26/19 Active clobetasoL 0.05 % shampoo Apply topically. 1 application to the scalp in the shower topically 3-4 times a week 10/24/19 Active ergocalciferol (Vitamin D-2) 1.25 MG (75405 UT) capsule Take 1 capsule (50,000 Units) by mouth 1 (one) time per week. 01/25/20 Active fluocinonide (Lidex) 0.05 % external solution Apply topically once daily. apply to affected area on scalp topically qd-bid prn for 30 day(s) 10/21/19 Active folic acid (Folvite) 1 mg tablet Take 1 tablet (1 mg) by mouth once daily. 01/16/20 Active ibuprofen 200 mg tablet Take 3 tablets (600 mg) by mouth every 8 hours if needed. Active triamcinolone acetonide 0.025 % lotion 1 Application. 06/23/19 Active immune globulin, human, (Gammagard) infusion Infuse into a venous catheter 1 time. Active metoprolol tartrate (Lopressor) 50 mg tabletIndications:Pa roxysmal supraventricular tachycardia,Essentia l hypertension Take 1 tablet by mouth 4 times a day. 360 tablet 3 07/27/19 25 026 Active Active Problems Problem Noted Date Diagnosed Date Current smoker 07/13/2023 Paroxysmal supraventricular tachycardia 07/13/19 24 Shortness of breath 07/13/2023 PAC (premature atrial contraction) 07/13/2023 Anxiety 06/09/2023 Depression, recurrent 06/09/2023 Arthritis 06/09/2023 Essential hypertension 06/09/2023 Autonomic dysfunction 06/01/2023 Obesity, Class III, BMI 40-49.9 (morbid obesity) 09/07/2022 Obstructive sleep apnea syndrome 05/20/2022 Anemia, unspecified 03/11/2022 Discoid lupus erythematosus 02/14/2022 Vitamin D deficiency 03/06/2021 Chronic bilateral low back pain with bilateral s ciatica 05/31/2014 Hyperlipidemia 05/31/2014 Vitamin B12 deficiency 05/31/2014 Resolved Problems Problem Noted Date Diagnosed Date Resolved Date Tachycardia 06/01/2023 07/26/2024 Encounters Date Type Department Care Team Description 07/26/2024 2:50 PM EST Office Visit [address] [phone] Lois Arguelles MD Sinus tachycardia (Primary Dx); Shortness of breath; Paroxysmal supraventricular tachycardia; Essential hypertension; Obstructive sleep apnea syndrome; Morbid obesity (Multi); Current smoker 07/26/2024 Travel from Last 3 Months Family History Medical History Relation Name Comments No Known Problems Brother Cancer Father Crohn's disease Mother Heart disease Sister Relation Name Status Comments Brother Father Mother Sister Social History Tobacco Use Types Packs/Day Years Used Date Smoking Tobacco: Every Day Cigarettes Smokeless Tobacco: Never Tobacco Cessation:Ready to Q uit: No; Counseling Given: Yes Alcohol Use Standard Drinks/Week Comments Never 0 (1 standard drink = 0.6 oz pur e alcohol) Comments Unknown Sex and Gender Information Value Date Recorded Sex Assigned at Not on file Legal Sex Female 9:42 PM EST Gender Identity Female 02/21/2024 7:13 PM EDT Sexual Orientation Not on file Last Filed Vital Signs Vital Sign Reading Time Taken Comments Blood Pressure 100/60 07/26/2024 3:06 PM EST Pulse 84 07/26/2024 3:06 PM EST Temperature - - Respiratory Rate - - Oxygen Saturation - - Inhaled Oxygen Concentration - - Weight 130 kg (286 lb 12.8 oz) 07/26/2024 3:06 P M EST Height 170.2 cm (5' 7 ) 07/26/2024 3:06 PM EST Body Mass Index 44.92 07/26/2024 3:06 PM EST Plan of Treatment Upcoming Encounters Date Type Department Care Team (Late st Contact Info) Description 07/26/2025 11:00 AM EST Office Visit [address] [phone] Lois Arguelles MD [address] [place] [address] 2, [address] [place] [address] Health Maintenance Due Date Last Done Comments Bone Density Scan 1980 HIV Screening 1980 Lipid Panel 1980 Yearly Adult Physical 1980 MMR Vaccines (1 of 1 - Standard series) 1981 Varicella Vaccines (1 of 2 - 13+ 2-dose series) 1993 Hepatitis C Screening 1998 Hepatitis B Vaccines (1 of 3 - 19+ 3-dose series) 10/05/1999 Pneumococcal Vaccine: Pediatrics and At-Risk Adult Patients (1 of 2 - PCV) 10/05/1999 Zoster Vaccines (1 of 2) 10/05/1999 HPV/Cotest 2001 DTaP/Tdap/Td Vaccines (1 - Tdap) 2002 Diabetes Screening 03/17/2023 03/17/2022 COVID-19 Vaccine (3 - Pfizer risk series) 03/23/2023 02/23/2023, 02/08/2022 Influenza Vaccine (Season Ended) 2025 Mammogram 04/06/2025 04/06/2024 Cervical Cancer Screening 06/06/2027 Pap Smear 06/06/2027 06/06/2024, 05/04/2008 HIB Vaccines Aged Out No longer eligi ble based on patient's age to complete this topic HPV Vaccines Aged Out No longer eligi ble based on patient's age to complete this topic Hepatitis A Vaccines Aged Out No long er eligible based on patient's age to complete this topic IPV Vaccines Aged Out No longer eligi ble based on patient's age to complete this topic Meningococcal Vaccine Aged Out No lauren anselmo eligible based on patient's age to complete this topic Rotavirus Vaccines Aged Out No longer eligible based on patient's age to complete this topic Procedures Procedure Name Priority Date/Time Associated Diagnosis Comments CONVERTED MEDICAL MICROBIOLOGIST CYTOLOGY Routine 05/04/2008 12:00 AM EST from Last 3 Months or Most Recently Relevant to Health Maintenance Results * CONVERTED MEDICAL MICROBIOLOGIST CYTOLOGY (05/04/2008 12:00 AM EST) Pathology Report Date of Procedure: 05/04/2008 Pathologist: Date Reported: 05/09/2008 Date Received: 05/07/2008 Submitting Physician: Conversion FINAL CYTOLOGICAL INTERPRETATION Satisfactory for evaluation. Transformation zone insufficient. Negative for squamous intraepithelial lesion or malignancy. - SCREENED BY: DYLAN FORREST (ASC) Note: Pap smear testing is a screening procedure and subject to both false negative and false positive results as evidenced by published data. Your patient's test result should be interpreted in this context, together with patient's history and clinical findings. - Signed by: JESSICA ORTIZ [facility] 05/09/08 Electronically Signed Out By [facility], Cytology/ By the signature on this report, the individual or group listed as making the Final Interpretation/Nayeli gnosis certifies that they have reviewed this case. Educational Note: Cervical cytology is a screening procedure primarily for squamous cancers and precursors and has associated false-negative and false-positive results as evidenced by published data. Your patient's test should be interpreted in this context, together with patient's history and clinical findings. Regular sampling and follow-up of unexplained clinical signs and symptoms are recommended to minimize false negative results. Clinical History Date of Last Menstrual Period: (Not Entered) - HISTORY & COMMENTS LMP: 02/14/08 Reflex HPV ordered if result is ASCUS Source of Specimen A: Unknown Part Type [facility] Department of Pathology [id number] [place] CONVERTED FINAL DIAGNOSIS Satisfactory for evaluation. Transformation zone insufficient. Negative for squamous intraepithelial lesion or malignancy. - SCREENED BY: DYLAN FORREST (ASC) Note: Pap smear testing is a screening procedure and subject to both false negative and false positive results as evidenced by published data. Your patient's test result should be interpreted in this context, together with patient's history and clinical findings. - Signed by: JESSICA ORTIZ [facility] 05/09/08 [facility] [place] CONVERTED CLINICAL DIAGNOSIS-HIST ORY - HISTORY & COMMENTS LMP: 02/14/08 Reflex HPV ordered if result is ASCUS [facility] [place] CONVERTED SLIDE-BLOCK DESCRIPTION - TISSUES - 1. CERVICAL THIN PREP - [facility] [place] CONVERTED REPORT COMMENTS Center Case # [id number] DOS: 05/04/08 - ORD PHYSICIAN: Jose Blackburn MD - ORD PROCEDURES - CYTO PAP TLP MAN / - COPIES TO: Jose Blackburn MD - Status History - ENT 05/07/08 1128 IS[address]IS DIAG 05/09/08 0750 JESSICA ORTIZ SOUT 05/09/08 1524 JESSICA ORTIZ - Aldo Conversion Report - [facility] [place] CONVERTED FINAL REPORT PDF LINK TO COPY AND PASTE \copathshare\copa th\PDF [id number] [facility] Unrecognized Part Type 05/04/2008 05/07/2008 11:28 AM EST us Copath Conversion LAB CYTOLOGY ORDERABLES Final Result [facility] [place] [address] [place] [address] from Last 3 Months or Most Recently Relevant to Health Maintenance Insurance [facility] Care Teams Broadcast Operations Manager Relationship Specialty Start Date End Date Gay De La Torre, SURGICAL FORCEPS FABRICATOR-PUBLICITY DIRECTOR [address] [place] [address] PCP - General 07/13/23 Michelle Jasmine, SURGICAL FORCEPS FABRICATOR-PUBLICITY DIRECTOR Nurse Practitioner Cardiology 06/08/23 Kenneth Patel MD Consulting Physician Cardiology 06/23/23
--- OUTSIDE RECORDS SUMMARY | 2024-10-24 10:10 | XMS_ITS | Encounter Summary ---
Author Organization [facility] Address [address] [place] [address] Care Team Providers Care Installations Inspector Name Role Phone Manuel Klein MD Unavailable [phone] Manuel Klein MD Primary Care Provider [phone] Manuel Klein MD Unavailable [phone] Source Comments In the event this information is protected by the Federal Confidentiality of Alcohol and Drug AbusePatient Records regulations: The Federal rules restrict any use of the information to criminally investigate or prosecute any alcohol or drug abuse patient.[facility] Encounter Details Date Type Department Care Team (Late st Contact Info) Description 10/15/2022 Get Medical Advice Allergy [address] [place] [phone] Misty Nelson MD [address] [place] [address] Vaccine Social History Tobacco Use Types Packs/Day Years [...] is lower risk 4 09/24/2022 Data from: https://www.neighborhoodatlas.medicine.[facility]/. Last address used for calculation [address] 09/24/2022 Comments No Sex and Gender [...] Info) Description 11/01/2024 9:00 AM EDT [facility] Center Hematology/Oncology [address] [place] [address] IVIG q 4 weeks with B 12 inj and lab 11/29/2024 8:45 AM EDT Office Visit [facility] Laboratory [address] [place] [address] 3 mo F/U-IVIG(slow infusion per pt request/B12 +/-IV iron lab 11/29/2024 9:00 AM EDT Visit (SP) Office Hematology/Oncology [address] [place] [address] Fara Lopez APRN.TANK WORKER [address] [place] [address] 3 mo F/U-IVIG(slow infusion per pt request/B12 +/-IV iron lab 11/29/2024 9:30 AM EDT Infusion Center Hematology/Oncology [address] [facility] [place] [address] 3 mo F/U-IVIG(slow infusion per pt request/B12 +/-IV iron lab documented as of this encounter Visit Diagnoses Not on filedocumented in this encounter Care Teams Installations Inspector Relationship Specialty Start Date End Date Manuel Klein MD PCP - General Family Medicine 02/27/22 Manuel Klein MD Referring Family Medicine 02/12/22 Manuel Klein MD [address] [place] [address] Referring Family Medicine 07/06/24 documented as of this encounter
--- OUTSIDE RECORDS SUMMARY | 2024-10-24 10:11 | XMS_ITS | Encounter Summary ---
Author Organization [facility] Address [address] [place] [address] Care Team Providers Care Stick Puller Name Role Phone Aime Davidson MD, Lui Nunez Primary Care Provid er Gay De La Torre(Historical) STOCK PREPARER.SPINNING MULE TENDER Primary Care Provider Unavailable Manuel Klein MD Unavailable [phone] Manuel Klein MD Primary Care Provider [phone] Manuel Klein MD Unavailable Source Comments In the event this information is protected by the Federal Confidentiality of Alcohol and Drug AbusePatient Records regulations: The Federal rules restrict any use of the information to criminally investigate or prosecute any alcohol or drug abuse patient.[facility] Encounter Details Date Type Department Care Team (Late st Contact Info) Description 05/01/2015 Get Medical Advice Internal Medicine [facility] [place] [address] Lui Salomon Jr., MD [address] [place] [address] RE: Medication Question (Not Renewal) Social History Tobacco Use Types Packs/Day Years [...] 9:00 AM EDT Infusion Center Hematology/Oncology [address] [place] [address] IVIG q 4 weeks with B 12 inj and lab 11/29/2024 8:45 AM EDT Office Visit [facility] Laboratory [facility] [place] [address] 3 mo F/U-IVIG(slow infusion per pt request/B12 +/-IV iron lab 11/29/2024 9:00 AM EDT Visit (SP) Office Hematology/Oncology [facility] [place] [address] Fara Lopez, STOCK PREPARER.SPINNING MULE TENDER [address] [place] [address] [place] [address] 3 mo F/U-IVIG(slow infusion per pt request/B12 +/-IV iron lab 11/29/2024 9:30 AM EDT Infusion Center Hematology/Oncology [address] [place] [address] 3 mo F/U-IVIG(slow infusion per pt request/B12 +/-IV iron lab documented as of this encounter Visit Diagnoses Not on filedocumented in this encounter Care Teams Stick Puller Relationship Specialty Start Date End Date Lui Salomon Jr., MD PCP - General Internal Medicine 05/31/14 07/08/20 Gay De La Torre(Historical), STOCK PREPARER.SPINNING MULE TENDER PCP - General Family Medicine 10/24/21 02/26/22 Manuel Klein MD PCP - General Family Medicine 02/27/22 Manuel Klein MD Referring Family Medicine 02/12/22 [place] [address] [place] [address] Referring Family Medicine 07/06/24 documented as of this encounter
--- OUTSIDE RECORDS SUMMARY | 2024-10-24 10:11 | XMS_ITS | Encounter Summary ---
Author Organization [facility] Address [address] [place] [address] Care Team Providers Care Vendor Manager Name Role Phone Aime Davidson MD, Lui Nunez Primary Care Provid er Gay De La Torre(Historical) ELECTRICIAN OFFICE.SQUARE SHEAR OPERATOR Primary Care Provider Unavailable Manuel Klein MD Unavailable [phone] Manuel Klein MD Primary Care Provider [phone] Manuel Klein MD Unavailable [phone] Source Comments In the event this information is protected by the Federal Confidentiality of Alcohol and Drug AbusePatient Records regulations: The Federal rules restrict any use of the information to criminally investigate or prosecute any alcohol or drug abuse patient.[facility] Encounter Details Date Type Department Care Team (Late st Contact Info) Description 06/06/2015 Patient Msg Internal Medicine [facility] [address] [place] [address] Lui Salomon Jr., MD [address] [address] Appointment Cancellation Request Social History Tobacco Use Types Packs/Day Years [...] 11/01/2024 9:00 AM EDT Infusion Center Hematology/Oncology [facility] [place] [address] IVIG q 4 weeks with B 12 inj and lab 11/29/2024 8:45 AM EDT Office Visit [facility] Laboratory [facility] [place] [address] 3 mo F/U-IVIG(slow infusion per pt request/B12 +/-IV iron lab 11/29/2024 9:00 AM EDT Visit (SP) Office Hematology/Oncology [facility] [place] [address] Fara Lopez, ELECTRICIAN OFFICE.SQUARE SHEAR OPERATOR [address] [place] [address] [place] [address] 3 mo F/U-IVIG(slow infusion per pt request/B12 +/-IV iron lab 11/29/2024 9:30 AM EDT Infusion Center Hematology/Oncology [address] [facility] [place] [address] 3 mo F/U-IVIG(slow infusion per pt request/B12 +/-IV iron lab documented as of this encounter Visit Diagnoses Not on filedocumented in this encounter Care Teams Vendor Manager Relationship Specialty Start Date End Date Lui Salomon Jr., MD PCP - General Internal Medicine 05/31/14 07/08/20 Gay De La Torre(Historical), ELECTRICIAN OFFICE.SQUARE SHEAR OPERATOR PCP - General Family Medicine 10/24/21 02/26/22 Manuel Klein MD PCP - General Family Medicine 02/27/22 Manuel Klein MD Referring Family Medicine 02/12/22 Manuel Klein MD [address] [place] [address] Referring Family Medicine 07/06/24 documented as of this encounter
--- OUTSIDE RECORDS SUMMARY | 2024-10-24 10:11 | XMS_ITS | Clinical Summary ---
Author Organization [facility] Address [address] [place] [address] Care Team Providers Care Passenger Elevator Operator Name Role Phone Gay De La Torre CNP Primary Care Provider [phone] Social History Tobacco Use Types Packs/Day Years Used Date Smoking Tobacco: Never Assessed Comments Unknown Sex and Gender Information Value Date Recorded Sex Assigned at Not on file Legal Sex Female 9:51 AM EST Gender Identity Not on file Sexual Orientation Not on file Plan of Treatment Health Maintenance Due Date Last Done Comments HEPATITIS C VIRUS SCREENING 1980 TETANUS 1980 HIV SCREENING DISCUSSION 10/05/1995 HEP B VACCINE (1 of 3 - 19+ 3-dose series) 10/05/1999 TDAP (ADULT) 10/05/1999 CERVICAL CANCER SCREENING DISCUSSION 2001 LIPID SCREENING 2020 MAMMOGRAM SCREENING DISCUSSION 2020 COVID-19 VACCINE (2 - 2023-2 5 season) 2024 02/23/2023 INFLUENZA VACCINE (Season Ended) 2025 HPV VACCINE Aged Out No longer eligi ble based on patient's age to complete this topic PNEUMOCOCCAL VACCINE SERIES Aged Out No longer eligible based on patient's age to complete this topic Care Teams Passenger Elevator Operator Relationship Specialty Start Date End Date Gay De La Torre CNP [address] [facility] [place] [address] PCP - General Nurse Practitioner - Family 03/27/24
--- OUTSIDE RECORDS SUMMARY | 2024-10-24 10:11 | XMS_ITS | Clinical Summary ---
Author Organization [facility] Address [address] [place] [address] Care Team Providers Care Biodiesel Processing Technician Name Role Phone Gay De La Torre CNP Primary Care Provider [phone] Allergies Active Allergy Reactions Criticality Noted Date Comments Omeprazole Other 03/08/2024 Pantoprazole Other 03/08/2024 Sulfamethoxazole Other 05/31/2014 Other Reaction(s): gi Other Reaction(s): lymph swelling CAUSED ENLARGED LYMPH NODES Sulfamethoxazole-Trimetho prim Other,GI intolerance,Lawi ng Low 02/24/2016 Patient states it was a long time ago and she did not have a severe reaction. She does not believe she is allergic, she just thinks she just experienced side effects. Other Reaction(s): Other, sick Patient states it [...] thinks she just experienced side effects. Medications Medication Sig Dispensed Refills Start Date End Date Status metoprolol tartrate (Lopressor) 50 mg tablet Take 100 mg by mouth two times daily. 05/25/2022 Active predniSONE (Deltasone) 10 mg tablet Take 10 mg by mouth in the morning. Active hydroxychloroquine 400 mg tablet 1 (one) time each day at the same time. Active belimumab 200 mg/mL auto-injector Inject 200mg (1 pen) subcutaneously once weekly 02/04/2023 Active Active Problems Problem Noted Date Diagnosed Date Diarrhea 03/07/2024 Duct ectasia of breast 03/07/2024 GERD (gastroesophageal reflux disease) Insulin resistance 03/07/2024 Lumbosacral spondylosis 03/07/2024 Abdominal pressure 03/07/2024 C. difficile diarrhea 03/07/2024 Facet arthritis of lumbar region 12/15/2023 Discharge from nipple 11/15/2023 Irregular periods/menstrual cycles 11/15/2023 Degenerative disc disease, lumbar 11/08/2023 History of vitamin D deficiency 10/05/2023 Hoarse 08/10/2023 Pure hypercholesterolemia, unspecified Thyroid nodule 08/10/2023 PAC (premature atrial contraction) 07/13/2023 Paroxysmal supraventricular tachycardia 07/13/19 Shortness of breath 07/13/2023 Cervical radiculopathy 07/06/2023 Chronic laryngopharyngitis 07/06/2023 Current smoker 07/06/2023 Overview (03/07/2024): Added secondary to documentation in Social History. Added secondary to documentation in Social History. 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 02/04 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 02/04/2023 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 Excessive and frequent menstruation with irregul ar cycle 09/24/2022 Obesity, Class III, BMI 40-49.9 (morbid obesity) 09/07/2022 CHRISTIAN positive 06/15/2022 Long-term use of high-risk medication 06/15/2022 Obstructive sleep apnea syndrome 05/20/2022 Somnolence, daytime 05/20/2022 Anemia, unspecified 03/11/2022 Megaloblastic anemia due to vitamin B12 deficien cy 03/04/2022 Discoid lupus erythematosus 02/14/2022 Vitamin D deficiency 03/06/2021 Bilateral leg weakness 03/05/2021 Chronic pain of toes of both feet 03/05/2021 Elevated sed rate 03/05/2021 Family history of Crohn's disease 03/05/2021 Hair loss 03/05/2021 Long-term use of Plaquenil 03/05/2021 Rash and nonspecific skin eruption 03/05/2021 Secondary osteoarthritis of multiple sites 03/05 Swelling of lymph nodes 03/05/2021 Ataxia 05/31/2014 Chronic bilateral low back pain with bilateral s ciatica 05/31/2014 Hyperlipidemia 05/31/2014 Vitamin B12 deficiency 05/31/2014 Family History Medical History Relation Name Comments Heart attack Maternal Grandfather Heart failure Maternal Grandmother Relation Name Status Comments Maternal Grandfather Maternal Grandmother Social History Tobacco Use Types Packs/Day Years Used Date Smoking Tobacco: Every Day Cigarettes Smokeless Tobacco: Never Alcohol Use Standard Drinks/Week Comments Not Currently 0 (1 standard drink = 0.6 oz pur e alcohol) [place] Safety & Environment Answer Date Rec orded Fear of Current or Ex-Partner Not on file Emotionally Abused Not on file 07/15/2023 Physically Abused Not on file 07/15/2023 Sexually Abused Not on file 07/15/2023 Physically or Sexually Abused Not on file Sex and Gender Information Value Date Recorded Sex Assigned at Not on file Gender Identity Not on file Sexual Orientation Not on file Last Filed Vital Signs Vital Sign Reading Time Taken Comments Blood Pressure 115/82 03/08/2024 10:12 AM EDT Pulse 74 03/08/2024 10:12 AM EDT Temperature - - Respiratory Rate - - Oxygen Saturation 98% 03/08/2024 10:00 AM EDT Inhaled Oxygen Concentration - - Weight 125 kg (275 lb) 03/08/2024 10:00 AM EDT Height 170.2 cm (5' 7 ) 03/08/2024 10:00 AM EDT Body Mass Index 43.07 03/08/2024 10:00 AM EDT Plan of Treatment Health Maintenance Due Date Last Done Comments Pneumococcal Vaccine: Pediatrics (0 to 5 Years) and At-Risk Patients (6 to 64 Years) (1 of 2 - PCV) 1986 Depression Screening 1992 Varicella Vaccines (1 of 2 - 13+ 2-dose series) 1993 Hepatitis B Vaccines (1 of 3 - 19+ 3-dose series) 10/05/1999 Adult Tetanus 2002 HPV/Cotest 2010 Cervical Cancer Screening 05/04/2011 Pap Smear 05/04/2011 05/04/2008 Mammogram 2020 COVID-19 Vaccine ( season) 2024 02/23/2023, 02/08/2022, 05/26/2021, Additional history exists Influenza Vaccine (Season Ended) 2025 Zoster Vaccines (1 of 2) 2030 HIB Vaccines Aged Out No longer eligi ble based on patient's age to complete this topic HPV Vaccines Aged Out No longer eligi ble based on patient's age to complete this topic IPV Vaccines Aged Out No longer eligi ble based on patient's age to complete this topic Meningococcal B Vaccine Aged Out No l onger eligible based on patient's age to complete this topic Meningococcal Vaccine Aged Out No lauren anselmo eligible based on patient's age to complete this topic Rotavirus Vaccines Aged Out No longer eligible based on patient's age to complete this topic Care Teams Biodiesel Processing Technician Relationship Specialty Start Date End Date Gay De La Torre CNP [facility] [facility], [place] [address] PCP - General Family Medicine 03/01/24
--- OUTSIDE RECORDS SUMMARY | 2024-10-24 10:11 | XMS_ITS | Referral Summary ---
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
--- OUTSIDE RECORDS SUMMARY | 2024-10-24 10:11 | XMS_ITS | Encounter Summary ---
Author Organization [facility] Address [facility] [place] [address] Care Team Providers Care Chimney Sweeper Name Role Phone Manuel Klien MD Unavailable [phone] Manuel Klein MD Primary Care Provider [phone] Manuel Klein MD Unavailable [phone] Source Comments In the event this information is protected by the Federal Confidentiality of Alcohol and Drug AbusePatient Records regulations: The Federal rules restrict any use of the information to criminally investigate or prosecute any alcohol or drug abuse patient.[facility] Encounter Details Date Type Department Care Team (Late st Contact Info) Description 07/27/2022 Patient Msg Neurology [address] [place] [address] Lexus Heck APRN.[place] [id number] Sleep Follow up Social History Tobacco Use Types Packs/Day Years [...] N ot on file 08/09/2020 Data from: https://www.neighborhoodatlas.medicine.[facility]/. Last address used for calculation Not on [...] Description 11/01/2024 9:00 AM EDT [facility] Center Hematology/Oncology [address] [place] [address] IVIG q 4 weeks with B 12 inj and lab 11/29/2024 8:45 AM EDT Office Visit [facility] Laboratory [address] [place] [address] 3 mo F/U-IVIG(slow infusion per pt request/B12 +/-IV iron lab 11/29/2024 9:00 AM EDT Visit (SP) Office Hematology/Oncology [address] [place] [address] Fara Lopez APRN.CRYSTAL MACHINING COORDINATOR [address] [place] [address] 3 mo F/U-IVIG(slow infusion per pt request/B12 +/-IV iron lab 11/29/2024 9:30 AM EDT Infusion Center Hematology/Oncology [address] [place] [address] 3 mo F/U-IVIG(slow infusion per pt request/B12 +/-IV iron lab documented as of this encounter Visit Diagnoses Not on filedocumented in this encounter Care Teams Chimney Sweeper Relationship Specialty Start Date End Date Manuel Klein MD PCP - General Family Medicine 02/27/22 Manuel Klein MD Referring Family Medicine 02/12/22 Manuel Klein MD [address] [place] [address] Referring Family Medicine 07/06/24 documented as of this encounter
--- OUTSIDE RECORDS SUMMARY | 2024-10-24 10:11 | XMS_ITS | Encounter Summary ---
Author Organization [facility] Address [address] [place] [address] Care Team Providers Care Blood Bank Custodian Name Role Phone Aime Davidson MD, Lui Nunez Primary Care Provid er Gay De La Torre(Historical) DYE BLENDER.GRAPPLE YARDER OPERATOR Primary Care Provider Unavailable Manuel Klein MD Unavailable [phone] Manuel Klein MD Primary Care Provider [phone] Manuel Klein MD Unavailable Source Comments In the event this information is protected by the Federal Confidentiality of Alcohol and Drug AbusePatient Records regulations: The Federal rules restrict any use of the information to criminally investigate or prosecute any alcohol or drug abuse patient.[facility] Encounter Details Date Type Department Care Team (Late st Contact Info) Description 12/31/2014 Patient Msg Medical Records [address] [place] [address] Provider, Ccf RE:Infection Social History Tobacco Use Types Packs/Day Years [...] Assessment Author No 12/25/2014 11:14 AM EDT Chcihi De Jesus documented as of this encounter [...] 11/01/2024 9:00 AM EDT Infusion Center Hematology/Oncology [address] [place] [address] [place] [address] IVIG q 4 weeks with B 12 inj and lab 11/29/2024 8:45 AM EDT Office Visit [facility] Laboratory [place] [address] 3 mo F/U-IVIG(slow infusion per pt request/B12 +/-IV iron lab 11/29/2024 9:00 AM EDT Visit (SP) Office Hematology/Oncology [place] [address] Fara Lopez APRN.GRAPPLE YARDER OPERATOR [place] [address] 3 mo F/U-IVIG(slow infusion per pt request/B12 +/-IV iron lab 11/29/2024 9:30 AM EDT Infusion Center Hematology/Oncology [address] [place] [address] [place] [address] 3 mo F/U-IVIG(slow infusion per pt request/B12 +/-IV iron lab documented as of this encounter Visit Diagnoses Not on filedocumented in this encounter Care Teams Blood Bank Custodian Relationship Specialty Start Date End Date Lui Salomon Jr., MD PCP - General Internal Medicine 05/31/14 07/08/20 Gay De La Torre(Historical), DYE BLENDER.GRAPPLE YARDER OPERATOR PCP - General Family Medicine 10/24/21 02/26/22 Manuel Klein MD PCP - General Family Medicine 02/27/22 Manuel Klein MD Referring Family Medicine 02/12/22 Manuel Klein MD [address] [place] [address] Referring Family Medicine 07/06/24 documented as of this encounter
--- OUTSIDE RECORDS SUMMARY | 2024-10-24 10:11 | XMS_ITS | Encounter Summary ---
Author Organization [facility] Address [address] [place] [address] Care Team Providers Care Condenser Cleaner Name Role Phone House, Charles Culver MD Primary Care Provider [phone] Gay De La Torre MD Unavailable [phone] Encounter Details Date Type Department Care Team (Late st Contact Info) Description 09/29/2023 Clinisync Result Encounter [facility] External Department Unsolicited Sharron Rogers, CNA PCT [address] [facility] [address] [id number] Social History Tobacco Use Types Packs/Day Years Used Date Smoking Tobacco: Every Day Cigarettes 1 29.4 Started: 05/24/1995 Smokeless Tobacco: Never Comments:Current smoker, carlos bushedwin, 11-20 cigarettes/day Alcohol Use Standard Drinks/Week Comments Never 0 (1 standard drink = 0.6 oz pure alcohol) Caffeine intake : > 4 cups per day Comments Unknown Sex and Gender Information Value Date Recorded Sex Assigned at Not on file Legal Sex Female 7:18 PM EDT Gender Identity Not on file Sexual Orientation Not on file documented as of this encounter Plan of Treatment Upcoming Encounters Date Type Department Care Team (Late st Contact Info) Description 03/19/2025 10:20 AM EDT Office Visit [facility] [address] [place] [address] Mary Grace Mejias MD [address] [facility] [address] [place] [address] 07/25/2025 11:00 AM EST Office Visit [facility] [address] [facility] [address] [place] [address] Cynthia English MD [address] [place] [address] documented as of this encounter Procedures Procedure Name Priority Date/Time Associated Diagnosis Comments XR THORACIC SPINE 3V 09/29/2023 7:22 AM EDT documented in this encounter Results * XR THORACIC SPINE 3V (09/29/2023 7:22 AM EDT) Anatomical Region Laterality Modality Other 09/29/2023 7:22 AM EDT Narrative 09/29/2023 7:25 AM EDT [address] [address] XRay Report Signed Patient: ARIADNA PANIAGUA MR#: [id number] : 1980 Acct:[id number] Age/Sex: 42 / F ADM Date: 09/28/23 Loc: RAD Attending Dr: SHARRON ROGERS Ordering Physician: SHARRON ROGERS Date of Service: 09/28/23 Procedure(s): XR thoracic spine 3V Accession Number(s): [id number] cc: GAY DE LA TORRE ; SHARRON ROGERS [address] [address] Patient Name: ARIADNA PANIAGUA MRN: [id number] date: 1980 Sex: F Assigned Patient Location: [facility] Current Patient Location: Accession/Order Number: [id number] Exam Date: 09/28/2023 14:43 Report Date: 09/29/2023 07:22 At the request of: SHARRON ROGERS Procedure: XR thoracic spine 3V EXAMINATION: XR thoracic spine 3V, XR lumbar spine min 4V HISTORY: bilateral leg weakness R29.898, muscle spasm M62.838 COMPARISON: No relevant comparison available. FINDINGS: BONES: Normal alignment with no acute fracture or spondylolisthesis. Minimal dextrocurvature centered at L2-L3. Minimal degenerative spondylosis mild facet osteoarthropathy most significant at L5-S1 DISC SPACES: Normal. No significant disc height narrowing, subluxation, or endplate abnormality. PARASPINOUS: Negative. No paraspinous abnormality is seen. OTHER: Negative. XR/XR thoracic spine 3V IMPRESSION: Minimal dextrocurvature Minimal degenerative change most significant at L5-S1 Electronically authenticated by: AURORA SHAIKH Date: 09/29/2023 07:22 Dictated By: Aurora Shaikh M.D. Signed By: 09/29/2325 DD/ 1 TD/TT: Ceramic Engineering Professor: Procedure Note Radiology, Radiologist, MD - 09/29/2023 [place] [address] XRay Report Signed Patient: ARIADNA PANIAGUA BMR#: [id number] : 1980Acct:[id number] Age/Sex: 42 / FADM Date: 09/28/23 Loc: [facility] Attending Dr: SHARRON ROGERS Ordering Physician: SHARRON ROGERS Date of Service: 09/28/23 Procedure(s): XR thoracic spine 3V Accession Number(s): [id number] cc: GAY DE LA TORRE ; SHARRON ROGERS [place] [address] Patient Name: ARIADNA PANIAGUA MRN: [id number] date: 1980 Sex: F Assigned Patient Location: [facility] Current Patient Location: Accession/Order Number: [id number] Exam Date: 09/28/2023 14:43 Report Date: 09/29/2023 07:22 At the request of: SHARRON ROGERS Procedure: XR thoracic spine 3V EXAMINATION: XR thoracic spine 3V, XR lumbar spine min 4V HISTORY: bilateral leg weakness R29.898, muscle spasm M62.838 COMPARISON: No relevant comparison available. FINDINGS: BONES: Normal alignment with no acute fracture or spondylolisthesis.Minimal dextrocurvature centered at L2-L3. Minimal degenerative spondylosis mildfacet osteoarthropathy most significant at L5-S1 DISC SPACES: Normal. No significant disc height narrowing, subluxation, or endplate abnormality. PARASPINOUS: Negative. No paraspinous abnormality is seen. OTHER: Negative. XR/XR thoracic spine 3V IMPRESSION: Minimal dextrocurvature Minimal degenerative change most significant at L5-S1 Electronically authenticated by: AURORA SHAIKH Date: 09/29/2023 07:22 Dictated By: Aurora Shaikh M.D. Signed By:09/29/23724 DD/ 1 TD/TT: Ceramic Engineering Professor: us Sharron Rogers CNA PCT [facility] Final Result documented in this encounter Visit Diagnoses Not on filedocumented in this encounter Care Teams Condenser Cleaner Relationship Specialty Start Date End Date Charles Nicole MD [address] [place] [address] PCP - General Family Medicine 02/09/24 07/17/24 Gay De La Torre MD [address] [place] [address] Referring Physician Family Medicine 07/18/24 documented as of this encounter
--- OUTSIDE RECORDS SUMMARY | 2024-10-24 10:11 | XMS_ITS | Patient Health Record ---
Author Organization [facility] in [place] Address [address] [place] [address] Care Team Providers Care Graphic Coordinator Name Role Phone Britt Gay Primary Care Provider Víctor Klein [phone] Allergies Allergen (clinical drug ingredient) Drug/Non Drug [...] trimethoprim Trimethoprim unknown Drug Allergy A ctive Results Component Value Reference Range Notes CBC AUTO DIFF Reviewed date:01/12/2024 08:36:49 AM Interpretation: Performing Lab: Notes/Report: [facility] , White Blood Count 12.0 4.0-11.0 10 3/uL Red Blood Count 4.48 4.20-5.40 10 6/uL Hemoglobin 13.4 12.0-16.0 g/dL Hematocrit 41.2 36.0-48.0 % Mean Corpuscular Volume 92.0 81.0-99.0 fL Mean Corpuscular Hemoglobin 29.9 26.7-34.0 pg Mean Corpuscular HGB Conc 32.5 29.9-35.2 g/dL Red Cell Distribution Width 14.9 11.0-15.0 % Platelet Count 273 150-450 10 3/uL Mean Platelet Volume 9.8 9.5-13.5 fL Neutrophils Percent Auto 76.9 43.0-75.0 % Lymphocytes Percent Auto 16.2 20.5-60.0 % Monocytes Percent Auto 5.7 1.7-12.0 % Eosinophils Percent Auto 0.2 0.9-7.0 % Basophils Percent Auto 0.4 0.2-2.0 % Immature Granulocytes Pct Auto 0.6 0.0-0.5 % Neutrophils Absolute Auto 9.2 1.4-6.5 10 3/uL Lymphocytes Absolute Auto 2.0 1.2-3.8 10 3/uL Monocytes Absolute Auto 0.7 0.3-0.8 10 3/uL Eosinophils Absolute Auto 0.0 0.0-0.7 10 3/uL Basophils Absolute Auto 0.1 0.0-0.1 10 3/uL Immature Granulocytes Abs Auto 0.07 0.00-0.03 10 3/uL Performing Lab: see note ML - [facility] LB CBC AUTO DIFF Reviewed date:02/28/2024 10:35:05 AM Interpretation: Performing Lab: Notes/Report: [facility] , White Blood Count 13.7 4.0-11.0 10 3/uL Red Blood Count 4.48 4.20-5.40 10 6/uL Hemoglobin 13.5 12.0-16.0 g/dL Hematocrit 41.8 36.0-48.0 % Mean Corpuscular Volume 93.3 81.0-99.0 fL Mean Corpuscular Hemoglobin 30.1 26.7-34.0 pg Mean Corpuscular HGB Conc 32.3 29.9-35.2 g/dL Red Cell Distribution Width 15.3 11.0-15.0 % Platelet Count 318 150-450 10 3/uL Mean Platelet Volume 9.9 9.5-13.5 fL Neutrophils Percent Auto 80.2 43.0-75.0 % Lymphocytes Percent Auto 13.5 20.5-60.0 % Monocytes Percent Auto 5.0 1.7-12.0 % Eosinophils Percent Auto 0.3 0.9-7.0 % Basophils Percent Auto 0.2 0.2-2.0 % Immature Granulocytes Pct Auto 0.8 0.0-0.5 % Neutrophils Absolute Auto 11.0 1.4-6.5 10 3/uL Lymphocytes Absolute Auto 1.8 1.2-3.8 10 3/uL Monocytes Absolute Auto 0.7 0.3-0.8 10 3/uL Eosinophils Absolute Auto 0.0 0.0-0.7 10 3/uL Basophils Absolute Auto 0.0 0.0-0.1 10 3/uL Immature Granulocytes Abs Auto 0.11 0.00-0.03 10 3/uL Performing Lab: see note ML - [facility] LB Wound Culture Reviewed date:11/19/2023 08:47:22 AM Interpretation: Performing Lab: Notes/Report: [facility] , Wound Culture See Below For Report O:PSEORY Isolated Wound Culture Quantity of Growth Organism: 1.1 Antibiotic Interpretation ELPIDIO Status Wound Culture See Below For Report O:PSEORY Isolated Wound Culture Quantity of Growth Organism: 1.1 Antibiotic Interpretation ELPIDIO Status Wound Culture LIGHT O:PSEORY Isolated Wound Culture Quantity of Growth Organism: 1.1 Antibiotic Interpretation ELPIDIO Status Wound Culture NO GROWTH OF ANAEROB ES AT 72 HOURS. O:PSEORY Isolated Wound Culture Quantity of Growth Organism: 1.1 Antibiotic Interpretation ELPIDIO Status Wound Culture See Below For Report O:PSEORY Isolated Wound Culture Quantity of Growth Organism: 1.1 Antibiotic Interpretation ELPIDIO Status Wound Culture Amikacin S <=2 F O:PSEORY Isolated Wound Culture Quantity of Growth Organism: 1.1 Antibiotic Interpretation ELPIDIO Status Wound Culture Ceftazidime S <=1 F O:PSEORY Isolated Wound Culture Quantity of Growth Organism: 1.1 Antibiotic Interpretation ELPIDIO Status Wound Culture Ceftriaxone S <=1 F O:PSEORY Isolated Wound Culture Quantity of Growth Organism: 1.1 Antibiotic Interpretation ELPIDIO Status Wound Culture Gentamicin S <=1 F O:PSEORY Isolated Wound Culture Quantity of Growth Organism: 1.1 Antibiotic Interpretation ELPIDIO Status Wound Culture Levofloxacin S <=0.12 F O:PSEORY Isolated Wound Culture Quantity of Growth Organism: 1.1 Antibiotic Interpretation ELPIDIO Status Wound Culture Tobramycin S <=1 F O:PSEORY Isolated Wound Culture Quantity of Growth Organism: 1.1 Antibiotic Interpretation ELPIDIO Status Wound Culture Piperacillin/Tazobac dumont S <=4 F O:PSEORY Isolated Wound Culture Quantity of Growth Organism: 1.1 Antibiotic Interpretation ELPIDIO Status Performing Lab: see note ML - [facility] LB SEE REPORT - Media Manager Id information not found for OBX-specific editor producer legend CBC AUTO DIFF Reviewed date:11/18/2023 04:24:51 PM Interpretation: Performing Lab: Notes/Report: [facility] , White Blood Count 12.2 4.0-11.0 10 3/uL Red Blood Count 4.25 4.20-5.40 10 6/uL Hemoglobin 12.6 12.0-16.0 g/dL Hematocrit 39.3 36.0-48.0 % Mean Corpuscular Volume 92.5 81.0-99.0 fL Mean Corpuscular Hemoglobin 29.6 26.7-34.0 pg Mean Corpuscular HGB Conc 32.1 29.9-35.2 g/dL Red Cell Distribution Width 14.6 11.0-15.0 % Platelet Count 315 150-450 10 3/uL Mean Platelet Volume 10.0 9.5-13.5 fL Neutrophils Percent Auto 77.7 43.0-75.0 % Lymphocytes Percent Auto 15.5 20.5-60.0 % Monocytes Percent Auto 4.9 1.7-12.0 % Eosinophils Percent Auto 0.6 0.9-7.0 % Basophils Percent Auto 0.6 0.2-2.0 % Immature Granulocytes Pct Auto 0.7 0.0-0.5 % Neutrophils Absolute Auto 9.5 1.4-6.5 10 3/uL Lymphocytes Absolute Auto 1.9 1.2-3.8 10 3/uL Monocytes Absolute Auto 0.6 0.3-0.8 10 3/uL Eosinophils Absolute Auto 0.1 0.0-0.7 10 3/uL Basophils Absolute Auto 0.1 0.0-0.1 10 3/uL Immature Granulocytes Abs Auto 0.09 0.00-0.03 10 3/uL Performing Lab: see note ML - [facility] LB GLYCOHEMOGLOBIN A1C Reviewed date:11/18/2023 04:24:51 PM Interpretation: Performing Lab: Notes/Report: [facility] , Glycohemoglobin A1C 6.1 4.5-6.2 % ADA RECOMMENDED LIMIT 4.0 - 6.0 ADA THERAPEUTIC TARGET < 7.0 ACTION SUGGESTED > 7.0 Estimated Average Glucose 128 Performing Lab: see note ML - [facility] LB BNP Reviewed date:12/06/2023 08:50:13 AM Interpretation: Performing Lab: Notes/Report: [facility] , NT Pro B Type Natriuretic Pept 44.0 <=450.0 pg/mL Performing Lab: see note ML - [facility] LB CBC AUTO DIFF Reviewed date:12/06/2023 08:50:14 AM Interpretation: Performing Lab: Notes/Report: [facility] , White Blood Count 11.9 4.0-11.0 10 3/uL Red Blood Count 4.40 4.20-5.40 10 6/uL Hemoglobin 13.1 12.0-16.0 g/dL Hematocrit 40.8 36.0-48.0 % Mean Corpuscular Volume 92.7 81.0-99.0 fL Mean Corpuscular Hemoglobin 29.8 26.7-34.0 pg Mean Corpuscular HGB Conc 32.1 29.9-35.2 g/dL Red Cell Distribution Width 14.5 11.0-15.0 % Platelet Count 293 150-450 10 3/uL Mean Platelet Volume 10.3 9.5-13.5 fL Neutrophils Percent Auto 80.1 43.0-75.0 % Lymphocytes Percent Auto 13.1 20.5-60.0 % Monocytes Percent Auto 5.7 1.7-12.0 % Eosinophils Percent Auto 0.3 0.9-7.0 % Basophils Percent Auto 0.5 0.2-2.0 % Immature Granulocytes Pct Auto 0.3 0.0-0.5 % Neutrophils Absolute Auto 9.5 1.4-6.5 10 3/uL Lymphocytes Absolute Auto 1.6 1.2-3.8 10 3/uL Monocytes Absolute Auto 0.7 0.3-0.8 10 3/uL Eosinophils Absolute Auto 0.0 0.0-0.7 10 3/uL Basophils Absolute Auto 0.1 0.0-0.1 10 3/uL Immature Granulocytes Abs Auto 0.04 0.00-0.03 10 3/uL Performing Lab: see note ML - [facility] LB D-DIMER Reviewed date:12/06/2023 08:50:14 AM Interpretation: Performing Lab: Notes/Report: [facility] , D Dimer 0.83 <=0.59 mg/L FEU RESULTS CALLED TO LISA Parrish RN Increases in D-Dimer concentration observed with thromboembolic events can be variable due to localization, size, and age of the thrombus. Therefore, a thromboembolic event cannot be diagnosed with certainty on the basis of the reference range. D-Dimers may also be elevated for a variety of disorders including advanced age, , coronary disease, cancer, liver disease, infection, inflammation, hematoma, DIC, trauma, post-surgery, diabetes, thrombolytic or anticoagulant therapy, stress, and generalized hospitalization. Performing Lab: see note ML - [facility] LB LACTATE or LACTIC ACID Reviewed date:12/06/2023 08:50:14 AM Interpretation: Performing Lab: Notes/Report: [facility] , Lactate/Lactic Acid 2.0 0.4-2.0 mmol/L Performing Lab: see note ML - [facility] LB LIPASE Reviewed date:12/06/2023 08:50:14 AM Interpretation: Performing Lab: Notes/Report: [facility] , Lipase 25.0 16.0-77.0 U/L Performing Lab: see note ML - [facility] LB PROF 14(COMP METB) Reviewed date:12/06/2023 08:50:14 AM Interpretation: Performing Lab: Notes/Report: [facility] , Sodium 141 136-145 mmol/L Potassium 4.2 3.5-5.1 mmol/L Chloride 104 98-107 mmol/L Carbon Dioxide 25.6 21.0-32.0 mmol/L Anion Gap 15.6 Glucose 119 74-106 mg/dL Blood Urea Nitrogen 13.0 7.0-18.0 mg/dL Creatinine 0.83 0.55-1.02 mg/dL Estimated GFR ( Cindi >60 >=60 Estimated GFR (Non- Coretta >60 >=60 BUN Creatinine Ratio 15.7 Calcium 9.3 8.5-10.1 mg/dL Bilirubin Total 0.3 0.2-1.0 mg/dL Aspartate Amino Transferase 15 15-37 U/L Alanine Aminotransferase 36 14-59 U/L Alkaline Phosphatase 66 46-116 U/L Total Protein 7.3 6.4-8.2 g/dL Albumin Level 3.4 3.4-5.0 g/dL Globulin 3.9 Albumin Globulin Ratio 0.9 Performing Lab: see note ML - [facility] LB Prothrombin Time INR Reviewed date:12/06/2023 08:50:14 AM Interpretation: Performing Lab: Notes/Report: [facility] , Prothrombin Time 10.1 9.0-11.6 sec INR 0.95 DESIRED INR: 2.0-3.0 CONDITIONS NOT LISTED BELOW 2.5-3.5 FOR PROSTHETIC HEART VALVE REPLACEMENT 2.5-3.5 RECURRENT THROMBOSIS Performing Lab: see note ML - [facility] LB Troponin I High Sensitivity Reviewed date:12/06/2023 08:50:14 AM Interpretation: Performing Lab: Notes/Report: [facility] , Troponin I High Sensitivity 5.2 4.0-51.3 pg/mL CUT-OFF POINTS HAVE BEEN ESTABLISHED BASED ON THE FOURTH UNIVERSAL DEFINITION OF MYOCARDIAL INFARCTION. THE UPPER REFERENCE LIMIT (URL) OF TROPONIN, DEFINED THE 99TH PERCENTILE OF cTnI DISTRIBUTION IN A REFERENCE POPULATION, HAS BEEN CONFIRMED THE DECISION THRESHOLD FOR [place] DIAGNOSIS. 99TH PERCENTILE = 51.4 PG/ML NOTE: HIGH-SENSITIVITY TROPONIN ASSAY IS NOT INTENDED TO BE USED IN ISOLATION BUT SHOULD BE INTERPRETED IN CONJUNCTION WITH OTHER DIAGNOSTIC AND CLINICAL INFORMATION. Performing Lab: see note - [facility] LB [place] Screen* Reviewed date:12/06/2023 08:50:14 AM Interpretation: Performing Lab: Notes/Report: [facility] , [place] Screen NEGATIVE NEGATIVE Performing Lab: see note - [facility] LB HCG Qualitative* Reviewed date:12/06/2023 08:50:14 AM Interpretation: Performing Lab: Notes/Report: [facility] , HCG Qualitative NEGATIVE NEGATIVE Performing Lab: see note - [facility] LB CT ABDOMEN W CON Reviewed date:12/06/2023 08:50:14 AM Interpretation: Performing Lab: Notes/Report: Source Facility: [place] [address] CT Scan Report Signed Patient: JONES PANIAGUA MR#: [id number] : 1980 Acct:[id number] Age/Sex: 43 / F ADM Date: 12/05/23 Loc: ER Attending Dr: Ordering Physician: Bhargav Murphy Date of Service: 12/05/23 Procedure(s): CT abdomen w con Accession Number(s): [id number] cc: GAY ENCISO [place] [address] Patient Name: JONES PANIAGUA MRN: [id number] date: 1980 Sex: F Assigned Patient Location: ER Current Patient Location: ER Accession/Order Number: [id number] Exam Date: 12/05/2023 17:55 Report Date: 12/05/2023 19:31 At the request of: BHARGAV MURPHY Procedure: CT abdomen w con EXAM: CT pulmonary angiogram of the chest using 100 mL of IV iodinated contrast. CT scan of the abdomen and pelvis using IV contrast. Dose reduction technique used: Automated exposure control and/or adjustment of the mA and/or kV according to patient size and/or use of iterative reconstruction technique. REASON FOR EXAM: Pulmonary embolism COMPARISON: CT scan dated 06/26/2023 FINDINGS: CHEST: Possible tiny filling defects versus artifact in the right lower lobe lobar artery and subsegmental branches well as a left lower lobe segmental branch. No other pulmonary emboli evident. Contrast timing and respiratory motion artifact prevents adequate evaluation of the subsegmental pulmonary artery branches. No aortic dissection. No pneumothorax. No acute airspace opacities. No pleural effusion. No acute fractures. No concerning pulmonary nodules. No definite lymphadenopathy in the chest. Mild cardiomegaly. ABDOMEN: Small left renal cyst. No free intraperitoneal air where visualized. No free fluid in the abdomen or pelvis where visualized. No dilated or thickened loops of small bowel or colon where visualized. No hydronephrosis or renal calculi. Liver, pancreas, spleen, bilateral kidneys, and bilateral adrenal glands are otherwise unremarkable. No lymphadenopathy in the abdomen or pelvis. Remainder unremarkable. CT/CT abdomen w con IMPRESSION: 1. Possible tiny bilateral pulmonary emboli that are age indeterminate versus artifact, contrast timing somewhat reduces sensitivity of evaluation. 2. Otherwise, no acute abnormalities in the chest. 3. No acute abnormalities in the abdomen. 4. Mild cardiomegaly. Electronically authenticated by: INGRID CONNER Date: 12/05/2023 19:31 Dictated By: Ingrid Conner M.D. Signed By: 12/05/231933 DD/ 30 TD/TT: Hotel Service Supervisor: [place] [address] CT Scan Report Signed Patient: SORAYA PANIAGUA MR#: [id number] : 1980 Acct:[id number] Age/Sex: 43 / F ADM Date: 12/05/23 Loc: ER Attending Dr: Ordering Physician: Bhargav Murphy Date of Service: 12/05/23 Procedure(s): CT abd omen w con Accession Number(s): [id number] cc: GAY ENCISO [place] [address] Patient Name: JONES PANIAGUA MRN: [id number] date: 1980 Sex: F Assigned Patient Location: ER Current Patient Loca tion: ER Accession/Order Numb er: [id number] Exam Date: 12/05/2023 17:55 Report Date: 12/05/2023 19:31 At the request of: BHARGAV MURPHY Procedure: CT abdome n w con EXAM: CT pulmonary angiogr am of the chest using 100 mL of IV iodinated contrast. CT scan of the abdom en and pelvis using IV contrast. Dose reduction techn ique used: Automated exposure control and/or adjustment of the mA and/or kV according to patient size and/or use of iterative reconstruction technique. REASON FOR EXAM: Pulmonary embolism COMPARISON: CT scan dated 06/26/2023 FINDINGS: CHEST: Possible tiny fillin g defects versus artifact in the right lower lobe lobar artery and subsegmen pito branches well as a left lower lobe segmental branch. No other pulmonary embo li evident. Contrast timing and respiratory motion artifact prevents adequate evaluation of the subsegmental pulmonary artery branches. No aortic dissection. No pneumothorax. No acu te airspace opacities. No pleural effusion. No acute fractures. No concer beatriz pulmonary nodules. No definite lymphadenopathy in the chest. Mild cardiomegaly. ABDOMEN: Small left renal cyst. No free intraperiton eal air where visualized. No free fluid in the abdomen or pelvis where visuali zed. No dilated or thickened loops of small bowel or colon where visualized. No hydronephrosis or renal calculi. Liver, pancreas, spleen, bilateral kidneys, a nd bilateral adrenal glands are otherwise unremarkable. No lymphadenopathy in t he abdomen or pelvis. Remainder unremarkable. C T/CT abdomen w con IMPRESSION: 1. Possible tiny bilateral pulmonary emboli that are age indeterminate versus artifact, contrast t iming somewhat reduces sensitivity of evaluation. 2. Otherwise, no acu te abnormalities in the chest. 3. No acute abnormal ities in the abdomen. 4. Mild cardiomegaly. Electronically authenticated by: INGRID CONNER Date: 12/05/2023 19:31 Dictated By: Adithya Conner M.D. Signed By: 12/05/231933 DD/ 30 TD/TT: Hotel Service Supervisor: ECG 12 lead Reviewed date:12/06/2023 08:50:13 AM Interpretation: Performing Lab: Notes/Report: Source Facility: [place] [address] Electrocardiograph Report Signed Patient: JONES PANIAGUA MR#: [id number] : 1980 Acct:[id number] Age/Sex: 43 / F ADM Date: 12/05/23 Loc: ER Attending Dr: Ordering Physician: Bhargav Murphy Date of Service: 12/05/23 Procedure(s): ECG 12 lead Accession Number(s): [id number] cc: [facility] Test Date: 2023-12-05 Pat Name: JONES PANIAGUA Department: Room: - Gender: Female Emergency Room Specialist: : 1980 Requested By: GAY ENCISO Order Number: [id number] Reading MD: MADELAINE KLEIN Measurements Intervals [place] Rate: 69 P: 51 SC: 160 QRS: 23 QRSD: 78 T: 52 QT: 388 QTc: 406 Interpretive Statements 1100 Sinus rhythm 8102 Low QRS voltage in chest leads 9120 atypical ECG Compared to ECG 07/07/2023 23:04:34 No significant changes Electronically Signed On 12-06-2023 5:32:17 EDT by MADELAINE KLEIN Dictated By: Madelaine Klein M.D. Signed By: 12/06/23 0532 DD/ 26 TD/TT: Hotel Service Supervisor: [place] [address] Electrocardiograph Report Signed Patient: SORAYA PANIAGUA MR#: [id number] : 1980 Acct:[id number] Age/Sex: 43 / F ADM Date: 12/05/23 Loc: ER Attending Dr: Ordering Physician: Bhargav Murphy Date of Service: 12/05/23 Procedure(s): ECG 12 lead Accession Number(s): [id number] cc: [facility] Test Date: 2023-12-05 Pat Name: JONES PALACIOS Department: 16 Room: - Gender: Female Emergency Room Specialist: : 1980 Requ ested By: GAY ENCISO Order Number: [id number] Reading MD: MADELAINE KLEIN Measurements Intervals [place] Rate: 69 P: 51 SC: 160 QRS: 23 QRSD: 78 T: 52 QT: 388 QTc: 406 Interpretive Statements 1100 Sinus rhythm 8102 Low QRS voltage in chest leads 9120 atypical ECG Compared to ECG 07/07/2023 23:04:34 No significant changes Electronically Elizabeth d On 12-06-2023 5:32:17 EDT by MADELAINE KLEIN Dictated By: José Miguel Klein M.D. Signed By: 12/06/23 0532 DD/ 1627 TD/TT: Hotel Service Supervisor: CT angio chest Reviewed date:12/06/2023 08:50:13 AM Interpretation: Performing Lab: Notes/Report: Source Facility: [place] [address] CT Scan Report Signed Patient: JONES PANIAGUA MR#: [id number] : 1980 Acct:[id number] Age/Sex: 43 / F ADM Date: 12/05/23 Loc: ER Attending Dr: Ordering Physician: Bhargav Murphy Date of Service: 12/05/23 Procedure(s): CT angio chest Accession Number(s): [id number] cc: GAY ENCISO [place] [address] Patient Name: JONES PANIAGUA MRN: [facility]:[id number] date: 1980 Sex: F Assigned Patient Location: ER Current Patient Location: ER Accession/Order Number: [id number] Exam Date: 12/05/2023 17:55 Report Date: 12/05/2023 19:31 At the request of: BHARGAV MURPHY Procedure: CT angio chest EXAM: CT pulmonary angiogram of the chest using 100 mL of IV iodinated contrast. CT scan of the abdomen and pelvis using IV contrast. Dose reduction technique used: Automated exposure control and/or adjustment of the mA and/or kV according to patient size and/or use of iterative reconstruction technique. REASON FOR EXAM: Pulmonary embolism COMPARISON: CT scan dated 06/26/2023 FINDINGS: CHEST: Possible tiny filling defects versus artifact in the right lower lobe lobar artery and subsegmental branches well as a left lower lobe segmental branch. No other pulmonary emboli evident. Contrast timing and respiratory motion artifact prevents adequate evaluation of the subsegmental pulmonary artery branches. No aortic dissection. No pneumothorax. No acute airspace opacities. No pleural effusion. No acute fractures. No concerning pulmonary nodules. No definite lymphadenopathy in the chest. Mild cardiomegaly. ABDOMEN: Small left renal cyst. No free intraperitoneal air where visualized. No free fluid in the abdomen or pelvis where visualized. No dilated or thickened loops of small bowel or colon where visualized. No hydronephrosis or renal calculi. Liver, pancreas, spleen, bilateral kidneys, and bilateral adrenal glands are otherwise unremarkable. No lymphadenopathy in the abdomen or pelvis. Remainder unremarkable. CT/CT angio chest IMPRESSION: 1. Possible tiny bilateral pulmonary emboli that are age indeterminate versus artifact, contrast timing somewhat reduces sensitivity of evaluation. 2. Otherwise, no acute abnormalities in the chest. 3. No acute abnormalities in the abdomen. 4. Mild cardiomegaly. Electronically authenticated by: INGRID CONNER Date: 12/05/2023 19:31 Dictated By: Ingrid Conner M.D. Signed By: 12/05/231933 DD/ 30 TD/TT: Hotel Service Supervisor: [place] [address] CT Scan Report Signed Patient: SORAYA PANIAGUA MR#: [id number] : 1980 Acct:[id number] Age/Sex: 43 / F ADM Date: 12/05/23 Loc: ER Attending Dr: Ordering Physician: Bhargav Murphy Date of Service: 12/05/23 Procedure(s): CT ang io chest Accession Number(s): [id number] cc: GAY ENCISO [place] [id number] Patient Name: JONES PANIAGUA MRN: [facility]:[id number] date: 1980 Sex: F Assigned Patient Location: ER Current Patient Loca tion: ER Accession/Order Numb er: [id number] Exam Date: 12/05/2023 17:55 Report Date: 12/05/2023 19:31 At the request of: BHARGAV MURPHY Procedure: CT angio chest EXAM: CT pulmonary angiogr am of the chest using 100 mL of IV iodinated contrast. CT scan of the abdom en and pelvis using IV contrast. Dose reduction techn ique used: Automated exposure control and/or adjustment of the mA and/or kV according to patient size and/or use of iterative reconstruction technique. REASON FOR EXAM: Pulmonary embolism COMPARISON: CT scan dated 06/26/2023 FINDINGS: CHEST: Possible tiny fillin g defects versus artifact in the right lower lobe lobar artery and subsegmen pito branches well as a left lower lobe segmental branch. No other pulmonary embo li evident. Contrast timing and respiratory motion artifact prevents adequate evaluation of the subsegmental pulmonary artery branches. No aortic dissection. No pneumothorax. No acu te airspace opacities. No pleural effusion. No acute fractures. No concer beatriz pulmonary nodules. No definite lymphadenopathy in the chest. Mild cardiomegaly. ABDOMEN: Small left renal cyst. No free intraperiton eal air where visualized. No free fluid in the abdomen or pelvis where visuali zed. No dilated or thickened loops of small bowel or colon where visualized. No hydronephrosis or renal calculi. Liver, pancreas, spleen, bilateral kidneys, a nd bilateral adrenal glands are otherwise unremarkable. No lymphadenopathy in t he abdomen or pelvis. Remainder unremarkable. C T/CT angio chest IMPRESSION: 1. Possible tiny bilateral pulmonary emboli that are age indeterminate versus artifact, contrast t iming somewhat reduces sensitivity of evaluation. 2. Otherwise, no acu te abnormalities in the chest. 3. No acute abnormal ities in the abdomen. 4. Mild cardiomegaly. Electronically authenticated by: INGRID CONNER Date: 12/05/2023 19:31 Dictated By: Adithya Conner M.D. Signed By: 12/05/231933 DD/ 30 TD/TT: Hotel Service Supervisor: Blood Culture 1 Reviewed date:02/15/2024 03:59:37 PM Interpretation: Performing Lab: Notes/Report: [facility] , Blood Culture 1 See Below For Report Blood Culture 1 NG5D NO GROWTH AT 5 DAYS. Performing Lab: see note ML - [facility] LB PREG QUANT HCG Reviewed date:04/06/2024 03:52:49 PM Interpretation: Performing Lab: Notes/Report: [facility] , HCG Quantitative <1 5-50 0.2-1 WEEK 50-500 1-2 WEEKS 100-5,000 2-3 WEEKS 500-10,000 3-4 WEEKS 1,000-50,000 4-5 WEEKS 10,000-100,000 5-6 WEEKS 15,000-200,000 6-8 WEEKS 10,000-100,000 2-3 MONTHS Performing Lab: see note ML - [facility] LB TSH Reviewed date:04/06/2024 03:52:49 PM Interpretation: Performing Lab: Notes/Report: [facility] , Thyroid Stimulating Hormone 0.333 0.358-3.740 uIU/mL Performing Lab: see note ML - [facility] LB Celiac Disease Comprehensive Reviewed date:04/10/2024 09:26:28 AM Interpretation: Performing Lab: Notes/Report: [facility] , Deamidated Gliadin Abs, IgA 3 0-19 units Negative 0 - 19 Weak Positive 20 - 30 Moderate to Strong Positive >30 Deamidated Gliadin Abs, IgG 1 0-19 units Negative 0 - 19 Weak Positive 20 - 30 Moderate to Strong Positive >30 t-Transglutaminase (tTG) IgA <2 0-3 U/mL Negative 0 - 3 Weak Positive 4 - 10 Positive >10 Tissue Transglutaminase (tTG) has been identified as the endomysial antigen. Studies have demonstr- ated that endomysial IgA antibodies have over 99% specificity for gluten sensitive enteropathy. t-Transglutaminase (tTG) IgG <2 0-5 U/mL Negative 0 - 5 Weak Positive 6 - 9 Positive >9 Endomysial Antibody IgA Negative Negative Immunoglobulin A, Qn, Serum 169 87-352 mg/dL Performed at: - [facility] [id number] Marketing Services Manager: Doyle Mendenhall PhD, Phone: [phone] Performing Lab: see note - [facility] LB C. Difficile PCR Reviewed date:04/11/2024 04:22:41 PM Interpretation: Performing Lab: Notes/Report: [facility] , C. Difficile PCR NEGATIVE Performing Lab: see note ML - [facility] LB MM tomosynthesis diagnostic BI Reviewed date:07/14/2024 03:37:52 PM Interpretation: Performing Lab: Notes/Report: Source Facility: [facility]-[address] [place] [address] Mammography Report Signed Patient: JONES PANIAGUA MR#: [id number] : 1980 Acct:[id number] Age/Sex: 43 / F ADM Date: 06/14/24 Loc: MAMMO Attending Dr: Oly Parnell Ordering Physician: Oly Parnell Results: Date of Service: 06/14/24 Follow Up: Procedure(s): MM tomosynthesis diagnostic LT Accession Number(s): [id number] cc: Oly Parnell; GAY ENCISO Patient Name: JONES PANIAGUA MR#: [id number] : 1980 Exam Date: 06/14/2024 Ordering Doctor: KELVIN Parnell . RADIOLOGY REPORT PROCEDURE: MM TOMOSYNTHESIS DIAGNOSTIC LT COMPARISON: US BREAST LT LIMITED, 06/14/2024. MM TOMOSYNTHESIS DIAGNOSTIC BI, 04/06/2024. MM TOMOSYNTHESIS SCREENING BI, 09/23/2023. MG MAMM SCREEN 3D MARK CAD, 09/01/2022. INDICATIONS: Left Axilla Nodule Calculator Name NCI Breast Cancer Risk Assessment Tool 5 Year Breast Cancer Risk 1.00% Lifetime Breast Cancer Risk 13.20% Personal Breast Cancer No Personal Ovarian Cancer No Treatments None Family Cancers Grandmother-paternal with breast cancer at age 67; Aunt-paternal with breast cancer at age 50; Father with stomach cancer at age 56. LOCATION: [facility] BREAST COMPOSITION: There are scattered areas of fibroglandular density. FINDINGS: DIAGNOSTIC CATEGORY 3--PROBABLY BENIGN FINDING. THE FOLLOWING FINDING(S) HAS A HIGH PROBABILITY OF A BENIGN ETIOLOGY: LEFT BREAST: Skin surface marker present over the posterior upper outer quadrant with no underlying suspicious abnormality. Ultrasound evaluation demonstrates a hypoechoic nodule versus cyst within the axillary tail, 7 x 6 x 4 millimeters. No internal blood flow. Findings nonspecific but suggestive of a sebaceous gland cyst or possibly a lymph node. Ultrasound-guided tissue sampling could be performed if clinically indicated. Otherwise clinical follow-up and annual screening mammography. RECOMMENDATIONS: CLINICAL EVALUATION. PLEASE NOTE: A NORMAL MAMMOGRAM DOES NOT EXCLUDE THE POSSIBILITY OF BREAST CANCER. A CLINICALLY SUSPICIOUS PALPABLE LUMP SHOULD BE BIOPSIED. Dictated by: Sayda Yusuf M.D. on 06/14/2024 at 16:11 Approved by: Sayda Yusuf M.D. on 06/14/2024 at 16:14 Dictated By: Sayda Yusuf M.D. Signed By: 06/14/24 1615 DD/ TD/TT: Hotel Service Supervisor: [place] [address] Mammography Report Signed Patient: SORAYA PANIAGUA MR#: [id number] : 1980 Acct:[id number] Age/Sex: 43 / F ADM Date: 06/14/24 Loc: MAMMO Attending Dr: Oly Parnell Ordering Physician: Oly Parnell Results: Date of Service: Follow Up: Procedure(s): MM tomosynthesis diagnostic LT Accession Number(s): [id number] cc: Oly Parnell; GAY ENCISO Patient Name: JONES PAINAGUA MR#: [id number] : 1980 Exam Date: 06/14/2024 Ordering Doctor: KELVIN Parnell . RADIOLOGY REPORT PROCEDURE: MM TOMOSYNTHESIS DIAGNOSTIC LT COMPARISON: US BREAS T LT LIMITED, 06/14/2024. MM TOMOSYNTHESIS DIAGNOSTIC BI, 04/06/2024. MM TOMOSYNTHESIS SCREENING BI, 09/23/2023. MG MAMM SCREEN 3D MARK CAD, 09/01/2022. INDICATIONS: Left Ax illa Nodule Calculator Name NCI Breast Cancer Risk Assessment Tool 5 Year Breast Cancer Risk 1.00% Lifetime Breast Canc er Risk 13.20% Personal Breast Cancer No Personal Ovarian Can cer No Treatments None Family Cancers Grandmother-paternal with breast cancer at age 67; Aunt-paternal with b reast cancer at age 50; Father with stomach cancer at age 56. LOCATION: [facility] BREAST COMPOSITION: There are scattered areas of fibroglandular density. FINDINGS: DIAGNOSTIC CATEGORY 3--PROBABLY BENIGN FINDING. THE FOLLOWING FINDING(S) HAS A HIGH PROBABILITY O F A BENIGN ETIOLOGY: LEFT BREAST: Skin galarza rface marker present over the posterior upper outer quadrant with no underlying suspicious abnormality. Ultrasound evaluatio n demonstrates a hypoechoic nodule versus cyst within the axillary tail, 7 x 6 x 4 millimeters. No internal blood flow. Findings nonspecific but suggestive of a sebaceous gland cyst or possibly a lymph node. Ultrasound-guided ti ssue sampling could be performed if clinically indicated. Otherwise clinical follow-up and annual screening mammography. RECOMMENDATIONS: CLINICAL EVALUATION. PLEASE NOTE: A CHAZ L MAMMOGRAM DOES NOT EXCLUDE THE POSSIBILITY OF BREAST CANCER. A CLINICALLY SUSPICIOUS PALPABLE LUMP SHOULD BE BIOPSIED. Dictated by: Sayda Yusuf M.D. on 06/14/2024 at 16:11 Approved by: Sayda Yusuf M.D. on 06/14/2024 at 16:14 Dictated By: Sayda Yusuf M.D. Signed By: 06/14/24 1615 DD/ 1614 TD/TT: Hotel Service Supervisor: breast LT limited Reviewed date:07/14/2024 03:37:19 PM Interpretation: Performing Lab: Notes/Report: Source Facility: [facility]-[address] [place] [address] [place] [address] Ultrasound Report Signed Patient: JONES PANIAGUA MR#: [id number] : 1980 Acct:[id number] Age/Sex: 43 / F ADM Date: 06/14/24 Loc: MAMMO Attending Dr: Oly Parnell Ordering Physician: Oly Parnell Date of Service: 06/14/24 Procedure(s): US breast LT limited Accession Number(s): [id number] cc: GAY Mcpherson Patient Name: JONES PANIAGUA MR#: [id number] : 1980 Exam Date: 06/14/2024 Ordering Doctor: KELVIN Parnell . RADIOLOGY REPORT PROCEDURE: US BREAST LT LIMITED COMPARISON: None. INDICATIONS: Left Axilla Nodule TECHNIQUE: Breast ultrasound was performed, with evaluation focusing only on specific areas of concern. FINDINGS: DIAGNOSTIC CATEGORY 3--PROBABLY BENIGN FINDING. THE FOLLOWING FINDING(S) HAS A HIGH PROBABILITY OF A BENIGN ETIOLOGY: LEFT BREAST: Within the subdermal layer of the left breast axillary tail corresponding to patient's palpable lump is a 7 x 6 x 4 mm hypoechoic well-circumscribed lesion with slightly isoechoic central and no appreciable internal blood flow on color Doppler. Sebaceous gland cyst versus lymph node? Neoplasm is not excluded but felt less likely. Ultrasound-guided tissue sampling could be performed if clinically indicated. RECOMMENDATIONS: CLINICAL EVALUATION. PLEASE NOTE: A NORMAL ULTRASOUND EXAMINATION DOES NOT EXCLUDE THE POSSIBILITY OF BREAST CANCER. A CLINICALLY SUSPICIOUS PALPABLE LUMP SHOULD BE BIOPSIED. Dictated by: Sayda Yusuf M.D. on 06/14/2024 at 15:01 Approved by: Sayda Yusuf M.D. on 06/14/2024 at 15:04 Dictated By: Sayda Yusuf M.D. Signed By: 06/14/24 1505 DD/ 1504 TD/TT: Hotel Service Supervisor: [place] [address] Ultrasound Report Signed Patient: SORAYA PANIAGUA MR#: [id number] : 1980 Acct:[id number] Age/Sex: 43 / F ADM Date: 06/14/24 Loc: MAMMO Attending Dr: Oly Parnell Ordering Physician: Oly Parnell Date of Service: 06/14/24 Procedure(s): US lilian ast LT limited Accession Number(s): [id number] cc: GAY Mcpherson Patient Name: JONES PANIAGUA MR#: [id number] : 1980 Exam Date: 06/14/2024 Ordering Doctor: KELVIN Parnell . RADIOLOGY REPORT PROCEDURE: US BREAST LT LIMITED COMPARISON: None. INDICATIONS: Left Ax illa Nodule TECHNIQUE: Breast ultrasound was performed, with evaluation focusing only on specific areas of concern. FINDINGS: DIAGNOSTIC CATEGORY 3--PROBABLY BENIGN FINDING. THE FOLLOWING FINDING(S) HAS A HIGH PROBABILITY O F A BENIGN ETIOLOGY: LEFT BREAST: Within the subdermal layer of the left breast axillary tail corresponding to patient's palpable lump is a 7 x 6 x 4 mm hypoechoic well-circumscribed l esion with slightly isoechoic central and no appreciable internal blood flow on color Doppler. Sebaceous gland cyst versus lymph node? Neoplasm is not excl uded but felt less likely. Ultrasound-guided tissue sampling could be performed if clinically indicated. RECOMMENDATIONS: CLINICAL EVALUATION. PLEASE NOTE: A CHAZ L ULTRASOUND EXAMINATION DOES NOT EXCLUDE THE POSSIBILITY OF BREAST CANCER. A CLINICALLY SUSPICIOUS PALPABLE LUMP SHOULD BE BIOPSIED. Dictated by: Sayda Yusuf M.D. on 06/14/2024 at 15:01 Approved by: Sayda Yusuf M.D. on 06/14/2024 at 15:04 Dictated By: Sayda Yusuf M.D. Signed By: 06/14/24 1505 DD/ 1504 TD/TT: Hotel Service Supervisor: GENE T3 Reviewed date:08/08/2024 02:48:03 PM Interpretation: Performing Lab: Notes/Report: [facility] , Free T3 2.89 2.18-3.98 pg/mL Performing Lab: see note ML - [facility] LB GLYCOHEMOGLOBIN A1C Reviewed date:08/08/2024 02:48:03 PM Interpretation: Performing Lab: Notes/Report: [facility] , Glycohemoglobin A1C 6.7 4.5-6.2 % ADA RECOMMENDED LIMIT 4.0 - 6.0 ADA THERAPEUTIC TARGET < 7.0 ACTION SUGGESTED > 7.0 Estimated Average Glucose 146 Performing Lab: see note - [facility] LB INSULIN Reviewed date:08/15/2024 01:02:11 PM Interpretation: Performing Lab: Notes/Report: [facility] , Insulin 24.1 2.6-24.9 uIU/mL Performed at: [facility] [address] [id number] Marketing Services Manager: Doyle Mendenhall PhD, Phone: [phone] Performing Lab: see note LC - [facility] LB LIPID PROFILE Reviewed date:08/08/2024 02:48:03 PM Interpretation: Performing Lab: Notes/Report: [facility] , Triglycerides 249 <=150 mg/dL Cholesterol 286 <=200 mg/dL HDL Cholesterol 46 40-60 mg/dL > or =60 mg/dl - LOW CARDIOVASCULAR RISK <40 mg/dl - HIGH CARDIOVASCULAR RISK LDL Cholesterol Calculated 191.0 <100 mg/dl OPTIMAL 100-129 mg/dl NEAR OR ABOVE OPTIMAL 130-159 mg/dl BORDERLINE HIGH 160-189 mg/dl HIGH >190 mg/dl VERY HIGH VLDL CHOLESTEROL 49.8 Chol HDL Ratio 6.2 3.3 - 4.4 LOW RISK 4.4 - 7.1 AVERAGE RISK 7.1 - 11.0 MODERATE RISK >11.0 HIGH RISK Performing Lab: see note ML - [facility] LB PROF 14(COMP METB) Reviewed date:08/08/2024 02:48:03 PM Interpretation: Performing Lab: Notes/Report: [facility] , Sodium 141 136-145 mmol/L Potassium 3.4 3.5-5.1 mmol/L Chloride 105 98-107 mmol/L Carbon Dioxide 26.9 21.0-32.0 mmol/L Anion Gap 12.5 Glucose 93 74-106 mg/dL Blood Urea Nitrogen 20.0 7.0-18.0 mg/dL Creatinine 0.64 0.55-1.02 mg/dL Estimated GFR ( Cindi >60 >=60 mL/min/1.73m 2 Estimated GFR (Non- Coretta >60 >=60 mL/min/1.73m 2 BUN Creatinine Ratio 31.3 Calcium 9.2 8.5-10.1 mg/dL Bilirubin Total 0.2 0.2-1.0 mg/dL Aspartate Amino Transferase 11 15-37 U/L Alanine Aminotransferase 39 14-59 U/L Alkaline Phosphatase 61 46-116 U/L Total Protein 6.7 6.4-8.2 g/dL Albumin Level 3.2 3.4-5.0 g/dL Globulin 3.5 Albumin Globulin Ratio 0.9 Performing Lab: see note ML - [facility] LB T4 Reviewed date:08/08/2024 02:48:03 PM Interpretation: Performing Lab: Notes/Report: [facility] , T4 Thyroxine 10.40 4.80-13.90 ug/dL Performing Lab: see note - [facility] LB TSH Reviewed date:08/08/2024 02:48:03 PM Interpretation: Performing Lab: Notes/Report: [facility] , Thyroid Stimulating Hormone 0.623 0.358-3.740 uIU/mL Performing Lab: see note - [facility] LB Vitamin B12 Reviewed date:08/15/2024 01:02:11 PM Interpretation: Performing Lab: Notes/Report: [facility] , Vitamin B12 732 930-3227 pg/mL Performed at: [address] [id number] Marketing Services Manager: Doyle Mendenhall PhD, Phone: [phone] Performing Lab: see note [facility] LB E coli Shiga Toxin EIA Reviewed date:10/17/2024 09:27:10 AM Interpretation: Performing Lab: Notes/Report: [facility] , E coli Shiga Toxin EIA See Below For Report E coli Shiga Toxin EIA Negative E coli Shiga Toxin EIA Performed at: [facility] E coli Shiga Toxin EIA Negative E coli Shiga Toxin EIA [address] [place] [id number] E coli Shiga Toxin EIA Negative E coli Shiga Toxin EIA Marketing Services Manager: Torin Mendenhall PhD, Phone: [phone] E coli Shiga Toxin EIA Negative Performing Lab: see note - [facility] LB SEE REPORT - Media Manager Id information not found for OBX-specific editor producer legend Salmonella/Shigella Screen Reviewed date:10/17/2024 09:27:10 AM Interpretation: Performing Lab: Notes/Report: [facility] , Salmonella/Shigella Screen See Below For Report Salmonella/Shigella Screen Salmonella/Shigella Screen No Salmonella or Shigella recovered. Salmonella/Shigella Screen Performing Lab: see note [facility] Campylobacter Culture Reviewed date:10/17/2024 09:27:10 AM Interpretation: Performing Lab: Notes/Report: [facility] , Campylobacter Culture See Below For Report Campylobacter Culture No Campylobacter species isolated. Performing Lab: see note [facility] LB VITAMIN D 25 OH Reviewed date:08/08/2024 02:48:03 PM Interpretation: Performing Lab: Notes/Report: [facility] , Vitamin D 27.7 <20 ng/mL Vit D deficient 20-<30 ng/mL Vit D insufficient 30-100 ng/mL Vit D sufficient >100 ng/mL Potential Toxicity Performing Lab: see note - [facility] LB IRON Reviewed date:08/08/2024 02:48:03 PM Interpretation: Performing Lab: Notes/Report: [facility] , Iron 135.0 50.0-170.0 ug/dL Performing Lab: see note ML - [facility] LB CBC AUTO DIFF Reviewed date:08/08/2024 08:30:17 AM Interpretation: Performing Lab: Notes/Report: [facility] , White Blood Count 12.0 4.0-11.0 10 3/uL Red Blood Count 4.27 4.20-5.40 10 6/uL Hemoglobin 12.7 12.0-16.0 g/dL Hematocrit 39.8 36.0-48.0 % Mean Corpuscular Volume 93.2 81.0-99.0 fL Mean Corpuscular Hemoglobin 29.7 26.7-34.0 pg Mean Corpuscular HGB Conc 31.9 29.9-35.2 g/dL Red Cell Distribution Width 15.7 11.0-15.0 % Platelet Count 302 150-450 10 3/uL Mean Platelet Volume 10.5 9.5-13.5 fL Neutrophils Percent Auto 65.1 43.0-75.0 % Lymphocytes Percent Auto 25.9 20.5-60.0 % Monocytes Percent Auto 6.4 1.7-12.0 % Eosinophils Percent Auto 1.0 0.9-7.0 % Basophils Percent Auto 0.4 0.2-2.0 % Immature Granulocytes Pct Auto 1.2 0.0-0.5 % Neutrophils Absolute Auto 7.8 1.4-6.5 10 3/uL Lymphocytes Absolute Auto 3.1 1.2-3.8 10 3/uL Monocytes Absolute Auto 0.8 0.3-0.8 10 3/uL Eosinophils Absolute Auto 0.1 0.0-0.7 10 3/uL Basophils Absolute Auto 0.1 0.0-0.1 10 3/uL Immature Granulocytes Abs Auto 0.14 0.00-0.03 10 3/uL Performing Lab: see note ML - [facility] LB IGP,Aptima HPV,Age Gdln Reviewed date:06/12/2024 03:56:26 PM Interpretation: Performing Lab: Notes/Report: BRUSH-SPATULA CERVIX ENDOCERVIX [facility] , Age Gdln ACOG Testing Note . TESTS RESULT FLAG UNITS REF RANGE LAB Clinician Provided Cytology Information Source.............Cer vix;Endocervix No. of containers..01 ThinPrep Vial Age Algo ACOG Alison... 30 FLAG LEGEND: L-Low Normal,H-High Normal,LL-Alert Low,HH-Alert High <-Panic Low,>-Panic High,A-Abnormal,AA-Cri tical Abnormal Performed at: 01 [facility] [address] [place] [address] Aparna Solorzano MD, IGP, Aptima HPV, rfx 16/18,45 Note . TESTS RESULT FLAG UNITS REF RANGE LAB DIAGNOSIS: 02 NEGATIVE FOR INTRAEPITHELIAL LESION OR MALIGNANCY. Specimen adequacy: 02 Satisfactory for evaluation. Endocervical and/or squamous metaplastic cells (endocervical component) are present. Performed by: 02 Kenzie Kam, Shear Grinder Operator Helper (ASC) . 02 Note: Note 02 The Pap [...] L-Low Normal,H-High Normal,LL-Alert Low,HH-Alert High <-Panic Low,>-Panic High,A-Abnormal,AA-Cri tical Abnormal Performed at: [address] [id number] Aparna Solorzano MD, HPV Aptima Negative Negative This nucleic acid amplification test detects fourteen high- risk HPV types (16,18,31,33,35,39,45, 51,52,56,58,59,66,68) without differentiation. Performed at: =G - [facility] [id number] Marketing Services Manager: Aparna Solorzano MD, Phone: [phone] Performed at: - [address] [id number] Marketing Services Manager: Aparna Solorzano MD, Phone: [phone] Performing Lab: see note - [facility] SEGMENTAL PRESSURES Reviewed date:04/27/2024 10:02:21 AM Interpretation: Performing Lab: Notes/Report: Source Facility: [place] [address] Vein Report Signed Patient: JONES PANIAGUA MR#: [id number] : 1980 Acct:[id number] Age/Sex: 43 / F ADM Date: 04/26/24 Loc: VC Attending Dr: Judy Arciniega M.D. Ordering Physician: Judy Arciniega M.D. Date of Service: 04/26/24 Procedure(s): VC SEGMENTAL PRESSURES Accession Number(s): [id number] cc: GAY ENCISO ; Judy Arciniega M.D. [facility] [place] [address] Patient Name: JONES PANIAGUA MRN: [id number] date: 1980 Sex: F Assigned Patient Location: Current Patient Location: VC Accession/Order Number: [id number] Exam Date: 04/26/2024 10:45 Report Date: 04/26/2024 12:29 At the request of: JUDY ARCINIEGA Procedure: VC SEGMENTAL PRESSURES EXAM: VC SEGMENTAL PRESSURES HISTORY: I73.9 COMPARISON: None. FINDINGS: Segmental pressures presented as follows (right, left) in mmHg. Brachial: 102, 109 Upper thigh: 175, 183 Lower thigh: 166, 177 Calf: 140, 143 DPA: 123, 148 RAIL CAR MECHANIC: 139, 155 1st Toe: 141, 143 SAMUEL: 1.28, 1.42 TBI: 1.29, 1.31 The ABIs are Normal The TBI's are normal PVR waveforms: Right leg: Thigh: Normal Above knee: Normal Below knee: Normal Right ankle: Normal Left leg: Thigh: Normal Above knee: Normal Below knee: Normal Right ankle: Normal VEIN/VC SEGMENTAL PRESSURES IMPRESSION: Normal exam Electronically authenticated by: AURORA SHAIKH Date: 04/26/2024 12:29 Dictated By: Aurora Shaikh M.D. Signed By: 04/26/24 1231 DD/ 1229 TD/TT: Hotel Service Supervisor: [place] [address] Vein Report Signed Patient: SORAYA PANIAGUA MR#: [id number] : 1980 Acct:[id number] Age/Sex: 43 / F ADM Date: 04/26/24 Loc: VC Attending Dr: Magno Arciniega M.D. Ordering Physician: Judy Arciniega M.D. Date of Service: 04/26/24 Procedure(s): VC SEGMENTAL PRESSURES Accession Number(s): [id number] cc: GAY ENCISO ; Judy Arciniega M.D. [place] [address] Patient Name: JONES PANIAGUA MRN: [id number] date: 1980 Sex: F Assigned Patient Location: Current Patient Loca tion: VC Accession/Order Numb er: [id number] Exam Date: 10:45 Report Date: 04/26/2024 12:29 At the request of: JUDY ARCINIEGA Procedure: VC SEGMEN PITO PRESSURES EXAM: VC SEGMENTAL PRESSURES HISTORY: I73.9 COMPARISON: None. FINDINGS: Segmental pressures presented as follows (right, left) in mmHg. Brachial: 102, 109 Upper thigh: 175, 183 Lower thigh: 166, 177 Calf: 140, 143 DPA: 123, 148 RAIL CAR MECHANIC: 139, 155 1st Toe: 141, 143 SAMUEL: 1.28, 1.42 TBI: 1.29, 1.31 The ABIs are Normal The TBI's are normal PVR waveforms: Right leg: Thigh: Normal Above knee: Normal Below knee: Normal Right ankle: Normal Left leg: Thigh: Normal Above knee: Normal Below knee: Normal Right ankle: Normal VEIN/VC SEGMENTAL PRESSURES IMPRESSION: Normal exam Electronically authenticated by: AURORA SHAIKH Date: 04/26/2024 12:29 Dictated By: Dereck Shaikh M.D. Signed By: 04/26/24 1231 DD/ 1229 TD/TT: Hotel Service Supervisor: US venous doppler FRANDY BI Reviewed date:04/17/2024 03:30:15 PM Interpretation: Performing Lab: Notes/Report: Source Facility: [facility]-[address] [place] [address] Ultrasound Report Signed Patient: JONES PANIAGUA MR#: [id number] : 1980 Acct:[id number] Age/Sex: 43 / F ADM Date: 04/17/24 Loc: RAD Attending Dr: Bhargav WARREN Ordering Physician: Bhargav Murphy Date of Service: 04/17/24 Procedure(s): US venous doppler LE LT Accession Number(s): [id number] cc: GAY ENCISO ; Bhargav Murphy [place] [address] Patient Name: JONES PANIAGUA MRN: [facility]:[id number] date: 1980 Sex: F Assigned Patient Location: [facility] Current Patient Location: [facility] Accession/Order Number: [id number] Exam Date: 04/17/2024 08:15 Report Date: 04/17/2024 14:56 At the request of: BHARGAV MURPHY Procedure: US venous doppler LE LT EXAM: US venous doppler LE LT HISTORY: Left Leg Pain COMPARISON: 02/11/2024 TECHNIQUE: Multiple sonographic images of the deep veins of the left lower extremity were obtained, supplemented with Doppler. FINDINGS: The deep veins of the left lower extremity are fairly well-visualized from the groin to the mid calf. No filling defect is identified in the deep veins to indicate a thrombus. There is normal compression augmentation to flow throughout. At the region of the reported palpable lump in the mid calf, no focal abnormality is identified. US/US venous doppler LE LT IMPRESSION: There is no direct or indirect evidence of deep vein thrombosis in the left lower extremity at this time. Similar findings were noted in the prior study. No focal abnormality is readily identified in the soft tissues at the site of palpable lump in the calf. Electronically authenticated by: DARIN VORA Date: 04/17/2024 14:56 Dictated By: Darin Vora M.D. Signed By: 04/17/24 1458 DD/ 145 TD/TT: Hotel Service Supervisor: [place] [address] Ultrasound Report Signed Patient: SORAYA PANIAGUA MR#: [id number] : 1980 Acct:[id number] Age/Sex: 43 / F ADM Date: 04/17/24 Loc: RAD Attending Dr: Geri WARREN Ordering Physician: Bhargav Murphy Date of Service: 04/17/24 Procedure(s): US kira ous doppler LE LT Accession Number(s): [id number] cc: GAY ENCISO ; Bhargav Murphy [place] [address] Patient Name: JONES PANIAGUA MRN: [id number] date: 1980 Sex: F Assigned Patient Location: RAD Current Patient Loca tion: RAD Accession/Order Numb er: [id number] Exam Date: 08:15 Report Date: 04/17/2024 14:56 At the request of: BHARGAV MURPHY Procedure: US venous doppler LE LT EXAM: US venous dopp ler LE LT HISTORY: Left Leg Pain COMPARISON: 02/11/2024 TECHNIQUE: Multiple sonographic images of the deep veins of the left lower extremity were obtai doroteo, supplemented with Doppler. FINDINGS: The deep v eins of the left lower extremity are fairly well-visualized from the groin to th e mid calf. No filling defect is identified in the deep veins to indicate a thrombus. There is normal compression augmentation to flow throughout. At the r egion of the reported palpable lump in the mid calf, no focal abnormality is identified. U S/US venous doppler LE LT IMPRESSION: There is no direct o r indirect evidence of deep vein thrombosis in the left lower extremity at t his time. Similar findings were noted in the prior study. No focal abnormality is readily identified in the soft tissues at the site of palpable lump in the calf. Electronically authenticated by: DARIN VORA Date: 04/17/2024 14:56 Dictated By: Abiola Vora M.D. Signed By: 04/17/24 1458 DD/ 1456 TD/TT: Hotel Service Supervisor: LIZETTE tomosynthesis diagnostic BI Reviewed date:04/07/2024 08:58:17 AM Interpretation: Performing Lab: Notes/Report: Source Facility: [place] [address] [place] [address] Mammography Report Signed Patient: JONES PANIAGUA MR#: [id number] : 1980 Acct:[id number] Age/Sex: 43 / F ADM Date: 04/06/24 Loc: US Attending Dr: Luan Valdivia D.O. Ordering Physician: Luan Valdivia D.O. Results: Date of Service: 04/06/24 Follow Up: Procedure(s): MM tomosynthesis diagnostic BI Accession Number(s): [id number] cc: GAY ENCISO ; Luan Valdivia D.O. Patient Name: JONES PANIAGUA MR#: [id number] : 1980 Exam Date: 04/06/2024 Ordering Doctor: DR Luan Valdivia . RADIOLOGY REPORT PROCEDURE: MM TOMOSYNTHESIS DIAGNOSTIC BI, 04/06/2024, 15:20 US BREAST BI LIMITED, 04/06/2024, 15:37 COMPARISON: MM TOMOSYNTHESIS SCREENING BI, 09/23/2023. MG MAMM SCREEN 3D MARK CAD, 09/01/2022. MG MAMM SCREEN 3D MARK CAD, 12/05/2020. INDICATIONS: Nipple Discharge Calculator Name NCI Breast Cancer Risk Assessment Tool 5 Year Breast Cancer Risk 1.00% Lifetime Breast Cancer Risk 13.20% Personal Breast Cancer No Personal Ovarian Cancer No Treatments None Family Cancers Grandmother-paternal with breast cancer at age 67; Aunt-paternal with breast cancer at age 50; Father with stomach cancer at age 56. LOCATION: [facility] BREAST COMPOSITION: There are scattered areas of fibroglandular density. FINDINGS: DIAGNOSTIC CATEGORY 2--BENIGN FINDING: RIGHT BREAST: No significant suspicious finding. Scattered benign-appearing calcifications are present. Scattered benign-appearing lymph nodes are present. No significant change has occurred. Ultrasound evaluation demonstrates minimally prominent subareolar ducts without appreciable mass or intraluminal debris. LEFT BREAST: No significant suspicious finding. No significant change has occurred. Ultrasound evaluation demonstrates minimally prominent subareolar ducts without appreciable mass or intraluminal debris. RECOMMENDATIONS: ROUTINE MAMMOGRAM AND CLINICAL EVALUATION IN 12 MONTHS. PLEASE NOTE: A NORMAL MAMMOGRAM DOES NOT EXCLUDE THE POSSIBILITY OF BREAST CANCER. A CLINICALLY SUSPICIOUS PALPABLE LUMP SHOULD BE BIOPSIED. Dictated by: Sayda Yusuf M.D. on 04/07/2024 at 08:29 Approved by: Sayda Yusuf M.D. on 04/07/2024 at 08:40 Dictated By: Sayda Yusuf M.D. Signed By: 04/07/2441 DD/ 9 TD/TT: Hotel Service Supervisor: [place] [address] Mammography Report Signed Patient: SORAYA PANIAGUA MR#: [id number] : 1980 Acct:[id number] Age/Sex: 43 / F ADM Date: 04/06/24 Loc: US Attending Dr: Luan Valdivia D.O. Ordering Physician: Luan Valdivia D.O. Results: Date of Service: Follow Up: Procedure(s): MM tomosynthesis diagnostic BI Accession Number(s): [id number] cc: GAY ENCISO ; Luan Valdivia D.O. Patient Name: JONES PANIAGUA MR#: [id number] : 1980 Exam Date: 04/06/2024 Ordering Doctor: DR Luan Valdivia . RADIOLOGY REPORT PROCEDURE: MM TOMOSYNTHESIS DIAGNOSTIC BI, 04/06/2024, 15:20 US BREAST BI LIMITED , 04/06/2024, 15:37 COMPARISON: MM TOMOSYNTHESIS SCREENING BI, 09/23/2023. MG MAMM SCREEN 3D MARK CAD, 09/01/2022. MG MAMM SCREEN 3D MARK CAD, 12/05/2020. INDICATIONS: Nipple Discharge Calculator Name NCI Breast Cancer Risk Assessment Tool 5 Year Breast Cancer Risk 1.00% Lifetime Breast Canc er Risk 13.20% Personal Breast Cancer No Personal Ovarian Can cer No Treatments None Family Cancers Grandmother-paternal with breast cancer at age 67; Aunt-paternal with b reast cancer at age 50; Father with stomach cancer at age 56. LOCATION: [facility] BREAST COMPOSITION: There are scattered areas of fibroglandular density. FINDINGS: DIAGNOSTIC CATEGORY 2--BENIGN FINDING: RIGHT BREAST: No significant suspicious finding. Scattered benign-appearing calcifications are present. Scattered benign-appearing lymph nodes are present. No signific ant change has occurred. Ultrasound evaluatio n demonstrates minimally prominent subareolar ducts without appreciable mass or intraluminal debris. LEFT BREAST: No significant suspicious finding. No significant change has occurred. Ultrasound evaluatio n demonstrates minimally prominent subareolar ducts without appreciable mass or intraluminal debris. RECOMMENDATIONS: ROUTINE MAMMOGRAM AN D CLINICAL EVALUATION IN 12 MONTHS. PLEASE NOTE: A CHAZ L MAMMOGRAM DOES NOT EXCLUDE THE POSSIBILITY OF BREAST CANCER. A CLINICALLY SUSPICIOUS PALPABLE LUMP SHOULD BE BIOPSIED. Dictated by: Sayda Yusuf M.D. on 04/07/2024 at 08:29 Approved by: Sayda Yusuf M.D. on 04/07/2024 at 08:40 Dictated By: Sayda Yusuf M.D. Signed By: 04/07/24 0841 DD/ TD/TT: Hotel Service Supervisor: US breast BI limited Reviewed date:04/07/2024 08:58:17 AM Interpretation: Performing Lab: Notes/Report: Source Facility: [place] [address] Ultrasound Report Signed Patient: JONES PANIAGUA MR#: [id number] : 1980 Acct:[id number] Age/Sex: 43 / F ADM Date: 04/06/24 Loc: US Attending Dr: Luan Valdivia D.O. Ordering Physician: Luan Valdivia D.O. Date of Service: 04/06/24 Procedure(s): US breast BI limited Accession Number(s): [id number] cc: GAY ENCISO ; Luan Valdivia D.O. Patient Name: JONES PANIAGUA MR#: [id number] : 1980 Exam Date: 04/06/2024 Ordering Doctor: DR Luan Valdivia . RADIOLOGY REPORT PROCEDURE: MM TOMOSYNTHESIS DIAGNOSTIC BI, 04/06/2024, 15:20 US BREAST BI LIMITED, 04/06/2024, 15:37 COMPARISON: MM TOMOSYNTHESIS SCREENING BI, 09/23/2023. MG MAMM SCREEN 3D MARK CAD, 09/01/2022. MG MAMM SCREEN 3D MARK CAD, 12/05/2020. INDICATIONS: Nipple Discharge Calculator Name NCI Breast Cancer Risk Assessment Tool 5 Year Breast Cancer Risk 1.00% Lifetime Breast Cancer Risk 13.20% Personal Breast Cancer No Personal Ovarian Cancer No Treatments None Family Cancers Grandmother-paternal with breast cancer at age 67; Aunt-paternal with breast cancer at age 50; Father with stomach cancer at age 56. LOCATION: [facility] BREAST COMPOSITION: There are scattered areas of fibroglandular density. FINDINGS: DIAGNOSTIC CATEGORY 2--BENIGN FINDING: RIGHT BREAST: No significant suspicious finding. Scattered benign-appearing calcifications are present. Scattered benign-appearing lymph nodes are present. No significant change has occurred. Ultrasound evaluation demonstrates minimally prominent subareolar ducts without appreciable mass or intraluminal debris. LEFT BREAST: No significant suspicious finding. No significant change has occurred. Ultrasound evaluation demonstrates minimally prominent subareolar ducts without appreciable mass or intraluminal debris. RECOMMENDATIONS: ROUTINE MAMMOGRAM AND CLINICAL EVALUATION IN 12 MONTHS. PLEASE NOTE: A NORMAL MAMMOGRAM DOES NOT EXCLUDE THE POSSIBILITY OF BREAST CANCER. A CLINICALLY SUSPICIOUS PALPABLE LUMP SHOULD BE BIOPSIED. Dictated by: Sayda Yusuf M.D. on 04/07/2024 at 08:29 Approved by: Sayda Yusuf M.D. on 04/07/2024 at 08:40 Dictated By: Sayda Yusuf M.D. Signed By: 04/07/24 0841 DD/ 0840 TD/TT: Hotel Service Supervisor: [place] [address] Ultrasound Report Signed Patient: SORAYA PANIAGUA MR#: [id number] : 1980 Acct:[id number] Age/Sex: 43 / F ADM Date: 04/06/24 Loc: US Attending Dr: Luan Valdivia D.O. Ordering Physician: Luan Valdivia D.O. Date of Service: 04/06/24 Procedure(s): US lilian ast BI limited Accession Number(s): [id number] cc: GAY ENCISO ; Skip,Luan D.O. Patient Name: JONES PANIAGUA MR#: [id number] : 1980 Exam Date: 04/06/2024 Ordering Doctor: DR Luan Valdivia . RADIOLOGY REPORT PROCEDURE: MM TOMOSYNTHESIS DIAGNOSTIC BI, 04/06/2024, 15:20 US BREAST BI LIMITED , 04/06/2024, 15:37 COMPARISON: MM TOMOSYNTHESIS SCREENING BI, 09/23/2023. MG MAMM SCREEN 3D MARK CAD, 09/01/2022. MG MAMM SCREEN 3D MARK CAD, 12/05/2020. INDICATIONS: Nipple Discharge Calculator Name NCI Breast Cancer Risk Assessment Tool 5 Year Breast Cancer Risk 1.00% Lifetime Breast Canc er Risk 13.20% Personal Breast Cancer No Personal Ovarian Can cer No Treatments None Family Cancers Grandmother-paternal with breast cancer at age 67; Aunt-paternal with b reast cancer at age 50; Father with stomach cancer at age 56. LOCATION: [facility] BREAST COMPOSITION: There are scattered areas of fibroglandular density. FINDINGS: DIAGNOSTIC CATEGORY 2--BENIGN FINDING: RIGHT BREAST: No significant suspicious finding. Scattered benign-appearing calcifications are present. Scattered benign-appearing lymph nodes are present. No signific ant change has occurred. Ultrasound evaluatio n demonstrates minimally prominent subareolar ducts without appreciable mass or intraluminal debris. LEFT BREAST: No significant suspicious finding. No significant change has occurred. Ultrasound evaluatio n demonstrates minimally prominent subareolar ducts without appreciable mass or intraluminal debris. RECOMMENDATIONS: ROUTINE MAMMOGRAM AN D CLINICAL EVALUATION IN 12 MONTHS. PLEASE NOTE: A CHAZ L MAMMOGRAM DOES NOT EXCLUDE THE POSSIBILITY OF BREAST CANCER. A CLINICALLY SUSPICIOUS PALPABLE LUMP SHOULD BE BIOPSIED. Dictated by: Sayda Yusuf M.D. on 04/07/2024 at 08:29 Approved by: Sayda Yusuf M.D. on 04/07/2024 at 08:40 Dictated By: Sayda Yusuf M.D. Signed By: 04/07/24 0841 DD/ 0840 TD/TT: Hotel Service Supervisor: US pelvis w/ transvaginal Reviewed date:04/07/2024 08:29:59 AM Interpretation: Performing Lab: Notes/Report: Source Facility: [facility]-[address] [place] [address] Ultrasound Report Signed Patient: JONES PANIAGUA MR#: [id number] : 1980 Acct:[id number] Age/Sex: 43 / F ADM Date: 04/06/24 Loc: LAB Attending Dr: Oly Parnell Ordering Physician: Oly Parnell Date of Service: 04/06/24 Procedure(s): US pelvis w/ transvaginal Accession Number(s): [id number] cc: Oly Parnell; GAY ENCISO [place] [address] Patient Name: JONES PANIAGUA MRN: [id number] date: 1980 Sex: F Assigned Patient Location: LAB Current Patient Location: Accession/Order Number: [id number] Exam Date: 04/06/2024 15:45 Report Date: 04/07/2024 04:48 At the request of: OLY PARNELL Procedure: US pelvis w/ transvaginal EXAMINATION: US pelvis w/ transvaginal HISTORY: Pelvic Pain , menorrhagia COMPARISON: Ultrasound pelvis 11/18/2023 TECHNIQUE: Transabdominal and/or transvaginal sonographic examination was performed as indicated by examination type. FINDINGS: UTERUS: Normal size and appearance. Uterus size: 8.4 x 4.2 x 5.2 cm ENDOMETRIUM: Normal homogeneous appearance. Endometrial thickness: 7 mm RIGHT OVARY: Contains a 2.2 cm benign-appearing cyst. Duplex Doppler demonstrates normal waveform and flow; resistive index 0.6. Ovary size: 3.3 x 2.6 x 2.7 cm LEFT OVARY: Not seen. CUL-DE-SAC: Unremarkable. No significant free fluid. BLADDER: Unremarkable. OTHER: None. US/US pelvis w/ transvaginal IMPRESSION: 1. No suspicious findings to account for patient's menorrhagia. 2. Right ovary contains a 2.2 cm benign-appearing cyst. Electronically authenticated by: SAYDA YUSUF Date: 04/07/2024 04:48 Dictated By: Sayda Yusuf M.D. Signed By: 04/07/24 0451 DD/ 0448 TD/TT: Hotel Service Supervisor: The [address] [address] Ultrasound Report Signed Patient: SORAYA PANIAGUA MR#: [id number] : 1980 Acct:[id number] Age/Sex: 43 / F ADM Date: 04/06/24 Loc: LAB Attending Dr: Oly Parnell Ordering Physician: Oly Parnell Date of Service: 04/06/24 Procedure(s): US pel vis w/ transvaginal Accession Number(s): [id number] cc: Oly Parnell; GAY ENCISO [address] [address] Patient Name: JONES PANIAGUA MRN: [id number] date: 1980 Sex: F Assigned Patient Location: LAB Current Patient Location: Accession/Order Numb er: [id number] Exam Date: 15:45 Report Date: 04/07/2024 04:48 At the request of: OLY PARNELL Procedure: US pelvis w/ transvaginal EXAMINATION: US pelv is w/ transvaginal HISTORY: Pelvic Pain , menorrhagia COMPARISON: Ultrasou nd pelvis 11/18/2023 TECHNIQUE: Transabdo jonathan and/or transvaginal sonographic examination was performed as indicat ed by examination type. FINDINGS: UTERUS: Normal size and appearance. Uterus size: 8.4 x 4.2 x 5.2 cm ENDOMETRIUM: Normal homogeneous appearance. Endometrial thickness: 7 mm RIGHT OVARY: Contain s a 2.2 cm benign-appearing cyst. Duplex Doppler demonstrates normal waveform and flow; resistive index 0.6. Ovary size: 3.3 x 2.6 x 2.7 cm LEFT OVARY: Not seen. CUL-DE-SAC: Unremark able. No significant free fluid. BLADDER: Unremarkable. OTHER: None. U S/US pelvis w/ transvaginal IMPRESSION: 1. No suspicious fin dings to account for patient's menorrhagia. 2. Right ovary conta ins a 2.2 cm benign-appearing cyst. Electronically authenticated by: SAYDA YUSUF Date: 04/07/2024 04:48 Dictated By: Sayda Yusuf M.D. Signed By: 04/07/24 0451 DD/ 0448 TD/TT: Hotel Service Supervisor: Prothrombin Time INR Reviewed date:04/06/2024 03:52:49 PM Interpretation: Performing Lab: Notes/Report: [facility] , Prothrombin Time 9.6 9.0-11.6 sec INR <0.93 DESIRED INR: 2.0-3.0 CONDITIONS NOT LISTED BELOW 2.5-3.5 FOR PROSTHETIC HEART VALVE REPLACEMENT 2.5-3.5 RECURRENT THROMBOSIS Performing Lab: see note ML - [facility] LB PTT Reviewed date:04/06/2024 03:52:49 PM Interpretation: Performing Lab: Notes/Report: [facility] , Partial Thromboplastin Time 25.6 22.3-36.2 sec Performing Lab: see note ML - [facility] GLYCOHEMOGLOBIN A1C Reviewed date:04/07/2024 08:30:55 AM Interpretation: Performing Lab: Notes/Report: [facility] , Glycohemoglobin A1C 6.3 4.5-6.2 % ADA RECOMMENDED LIMIT 4.0 - 6.0 ADA THERAPEUTIC TARGET < 7.0 ACTION SUGGESTED > 7.0 Estimated Average Glucose 134 Performing Lab: see note ML - [facility] FREE T4 Reviewed date:04/07/2024 08:30:55 AM Interpretation: Performing Lab: Notes/Report: [facility] , Free T4 1.01 0.76-1.46 ng/dL Performing Lab: see note ML - [facility] LB CBC AUTO DIFF Reviewed date:04/06/2024 03:52:49 PM Interpretation: Performing Lab: Notes/Report: [facility] , White Blood Count 11.4 4.0-11.0 10 3/uL Red Blood Count 4.21 4.20-5.40 10 6/uL Hemoglobin 13.0 12.0-16.0 g/dL Hematocrit 39.7 36.0-48.0 % Mean Corpuscular Volume 94.3 81.0-99.0 fL Mean Corpuscular Hemoglobin 30.9 26.7-34.0 pg Mean Corpuscular HGB Conc 32.7 29.9-35.2 g/dL Red Cell Distribution Width 15.1 11.0-15.0 % Platelet Count 326 150-450 10 3/uL Mean Platelet Volume 10.1 9.5-13.5 fL Neutrophils Percent Auto 73.2 43.0-75.0 % Lymphocytes Percent Auto 18.4 20.5-60.0 % Monocytes Percent Auto 6.7 1.7-12.0 % Eosinophils Percent Auto 0.4 0.9-7.0 % Basophils Percent Auto 0.4 0.2-2.0 % Immature Granulocytes Pct Auto 0.9 0.0-0.5 % Neutrophils Absolute Auto 8.3 1.4-6.5 10 3/uL Lymphocytes Absolute Auto 2.1 1.2-3.8 10 3/uL Monocytes Absolute Auto 0.8 0.3-0.8 10 3/uL Eosinophils Absolute Auto 0.1 0.0-0.7 10 3/uL Basophils Absolute Auto 0.1 0.0-0.1 10 3/uL Immature Granulocytes Abs Auto 0.10 0.00-0.03 10 3/uL Performing Lab: see note ML - [facility] CA echo doppler complete Reviewed date:02/24/2024 03:25:38 PM Interpretation: Performing Lab: Notes/Report: Source Facility: [place] [address] Cardiology Report Signed Patient: JONES PANIAGUA MR#: [id number] : 1980 Acct:[id number] Age/Sex: 43 / F ADM Date: 02/21/24 Loc: CARD Attending Dr: GAY ENCISO Ordering Physician: GAY ENCISO Date of Service: 02/21/24 Procedure(s): CA echo doppler complete Accession Number(s): [id number] cc: GAY ENCISO Patient Name: JONES PANIAGUA MR#: [id number] : 1980 Exam Date: 02/21/2024 Ordering Doctor: GAY ENCISO DELIVERY CONSULTANT ECHOCARDIOGRAM REPORT PROCEDURE: CA ECHO DOPPLER COMPLETE INDICATIONS: Hypertension COMPARISON: None. DESCRIPTION: COMPLETE ECHOCARDIOGRAM Real-time transthoracic echocardiography with 2D, M-mode, spectral and color flow Doppler performed. QUALITY: Technical quality was good. LEFT VENTRICLE: Normal chamber size. Mild concentric left ventricular hypertrophy. LV EF: Global left ventricular systolic function is hyperdynamic; visual estimation of left ventricular ejection fraction is 65-70%. No wall motion abnormalities DIASTOLIC: Normal diastolic function. ATRIAL SEPTUM: Not adequately seen. LEFT ATRIUM: Normal chamber size. RIGHT ATRIUM: Normal chamber size. RIGHT VENTRICLE: Normal chamber size. Normal right ventricular systolic function. TRICUSPID VALVE: Normal mobility and thickness. No stenosis with trivial regurgitation. No evidence of pulmonary hypertension. RVSP 23mmHg MITRAL VALVE: Normal mobility and thickness. No evidence of mitral valve stenosis. There is no mitral annular calcification. Trivial mitral regurgitation. AORTIC VALVE: Normal trileaflet appearance. No visible sclerosis. Normal leaflet mobility. No evidence of aortic valve stenosis. No aortic regurgitation. AORTIC ROOT: Normal diameter and appearance. PULMONIC VALVE: Normal thickness and mobility. No stenosis. Trivial regurgitation. PERICARDIUM: Anterior free space; trivial effusion vs fat pad. IVC: Collapses with inspirations. Normal size. CONCLUSION: 1. Global left ventricular systolic function is hyperdynamic; visually estimated ejection fraction is 65 to 70% 2. Normal right ventricular size and systolic function 3. Mild left ventricular hypertrophy 4. Normal diastolic function 5. The left atrium is normal in size 6. No significant valvular abnormalities 7. Anterior free space; trivial effusion versus fat pad Adult Echocardiography Procedure Report Left Ventricle LVEDD (3.7 - 5.6 cm): 4.28 cm LVESD (2.2 - 4.0 cm): 3.05 cm LVIVS thickness (0.6 - 1.2 cm): 1.13 cm LVPW thickness (0.5 - 1.0 cm): 1.10 cm e': 0.09 m/s E - e': 8.42 LVOT Max Gradient: 2.79 mm[Hg] LVOT Area (cm2): 0.84 m/s Peak Velocity (LVOT): 0.84 m/s Mean Velocity (LVOT): 0.62 m/s LVOT Diameter 2.08 cm Left Ventricular Ejection Fraction: 68.54 % Left Atrium LA Volume Index (2D A2C): 32.50 ml/m2 Left Atrium Systolic Dimension: 4.17 cm Mitral Valve MV E to A Ratio: 1.30 Mitral Valve A-Wave Peak Velocity: 0.60 m/s Mitral Valve E-Wave Peak Velocity: 0.78 m/s Right Ventricle RV Internal Diastolic Dimension: 3.67 cm Aorta AO Root Diam: 3.17 cm Ascending Ao Diam: 2.66 cm Aortic Valve AoV Area (Peak Dima): 2.63 cm2, 2.63 cm2 AoV Area (VTI): 2.74 cm2, 2.74 cm2 Peak Velocity(Antegrade Flow): 1.08 m/s Peak Gradient(Antegrade Flow): 4.67 mm[Hg] Mean Velocity(Antegrade Flow): 0.75 m/s Mean Gradient(Antegrade Flow): 2.48 mm[Hg] Velocity Time Integral: 24.18 cm Tricuspid Valve Peak Velocity (Regurgitant Flow): 1.94 m/s, 2.23 m/s Pulmonic Valve Mean Gradient: 2.41 mm[Hg], 2.71 mm[Hg] Mean Velocity: 0.72 m/s, 0.77 m/s Peak Velocity: 1.03 m/s Peak Gradient: 3.97 mm[Hg], 4.50 mm[Hg] Right Atrium Right Atrium Systolic Pressure: 61.89 ml, 61.89 ml Dictated by: Calos Mendoza M.D. on 02/21/2024 at 13:23 Approved by: Calos Mendoza M.D. on 02/21/2024 at 13:28 Dictated By: Calos Mendoza M.D. Signed By: 02/21/24 1329 DD/ 1328 TD/TT: Hotel Service Supervisor: [place] [address] Cardiology Report Signed Patient: SORAYA PANIAGUA MR#: [id number] : 1980 Acct:[id number] Age/Sex: 43 / F ADM Date: 02/21/24 Loc: CARD Attending Dr: GAY ENCISO Ordering Physician: GAY ENCISO Date of Service: 02/21/24 Procedure(s): CA ech o doppler complete Accession Number(s): [id number] cc: GAY ENCISO Patient Name: JONES PANIAGUA MR#: [id number] : 1980 Exam Date: 02/21/2024 Ordering Doctor: DANIE ENCISO DELIVERY CONSULTANT ECHOCARDIOGRAM REPORT PROCEDURE: CA ECHO DOPPLER COMPLETE INDICATIONS: Hypertension COMPARISON: None. DESCRIPTION: COMPLET E ECHOCARDIOGRAM Real-time transthoracic echocardiography wit h 2D, M-mode, spectral and color flow Doppler performed. QUALITY: Technical quality was good. LEFT VENTRICLE: Norm al chamber size. Mild concentric left ventricular hypertrophy. LV EF: Global left ventricular systolic function is hyperdynamic; visual estimation of left ventricular ejection fraction is 65-70%. No wall motion abnormalities DIASTOLIC: Normal diastolic function. ATRIAL SEPTUM: Not adequately seen. LEFT ATRIUM: Normal chamber size. RIGHT ATRIUM: Normal chamber size. RIGHT VENTRICLE: Nor mal chamber size. Normal right ventricular systolic function. TRICUSPID VALVE: Nor mal mobility and thickness. No stenosis with trivial regurgitation. No evidence of pulmonary hypertension. RVSP 23mmHg MITRAL VALVE: Normal mobility and thickness. No evidence of mitral valve stenosis. There is n o mitral annular calcification. Trivial mitral regurgitation. AORTIC VALVE: Normal trileaflet appearance. No visible sclerosis. Normal leaflet mobility. No evidence of aortic valve stenosis. No aortic regurgitation. AORTIC ROOT: Normal diameter and appearance. PULMONIC VALVE: Norm al thickness and mobility. No stenosis. Trivial regurgitation. PERICARDIUM: Anterio r free space; trivial effusion vs fat pad. IVC: Collapses with inspirations. Normal size. CONCLUSION: 1. Global left ventricular systolic function is hyperdynamic; visually estimated ejection fraction is 65 to 70% 2. Normal right ventricular size and systolic function 3. Mild left ventric ular hypertrophy 4. Normal diastolic function 5. The left atrium i s normal in size 6. No significant valvular abnormalities 7. Anterior free spa ce; trivial effusion versus fat pad Adult Echocardiograp hy Procedure Report Left Ventricle LVEDD (3.7 - 5.6 cm) : 4.28 cm LVESD (2.2 - 4.0 cm) : 3.05 cm LVIVS thickness (0.6 - 1.2 cm): 1.13 cm LVPW thickness (0.5 - 1.0 cm): 1.10 cm e': 0.09 m/s E - e': 8.42 LVOT Max Gradient: 2 .79 mm[Hg] LVOT Area (cm2): 0.84 m/s Peak Velocity (LVOT) : 0.84 m/s Mean Velocity (LVOT) : 0.62 m/s LVOT Diameter 2.08 cm Left Ventricular Eje ction Fraction: 68.54 % Left Atrium LA Volume Index (2D A2C): 32.50 ml/m2 Left Atrium Systolic Dimension: 4.17 cm Mitral Valve MV E to A Ratio: 1.30 Mitral Valve A-Wave Peak Velocity: 0.60 m/s Mitral Valve E-Wave Peak Velocity: 0.78 m/s Right Ventricle RV Internal Diastoli c Dimension: 3.67 cm Aorta AO Root Diam: 3.17 cm Ascending Ao Diam: 2 .66 cm Aortic Valve AoV Area (Peak Dima): 2.63 cm2, 2.63 cm2 AoV Area (VTI): 2.74 cm2, 2.74 cm2 Peak Velocity(Antegr tierra Flow): 1.08 m/s Peak Gradient(Antegr tierra Flow): 4.67 mm[Hg] Mean Velocity(Antegr tierra Flow): 0.75 m/s Mean Gradient(Antegr tierra Flow): 2.48 mm[Hg] Velocity Time Integr al: 24.18 cm Tricuspid Valve Peak Velocity (Regurgitant Flow): 1.94 m/s, 2.23 m/s Pulmonic Valve Mean Gradient: 2.41 mm[Hg], 2.71 mm[Hg] Mean Velocity: 0.72 m/s, 0.77 m/s Peak Velocity: 1.03 m/s Peak Gradient: 3.97 mm[Hg], 4.50 mm[Hg] Right Atrium Right Atrium Systoli c Pressure: 61.89 ml, 61.89 ml Dictated by: Calos Mendoza M.D. on 02/21/2024 at 13:23 Approved by: Calos Mendoza M.D. on 02/21/2024 at 13:28 Dictated By: Calos Mendoza M.D. Signed By: 02/21/24 1329 DD/ 1328 TD/TT: Hotel Service Supervisor: US venous doppler FRANDY KIM Reviewed date:02/15/2024 03:56:57 PM Interpretation: Performing Lab: Notes/Report: Source Facility: [facility]-[address] [place] [address] [place] [address] Ultrasound Report Signed Patient: JONES PANIAGUA MR#: [id number] : 1980 Acct:[id number] Age/Sex: 43 / F ADM Date: 02/11/24 Loc: US Attending Dr: GAY ENCISO Ordering Physician: GAY ENCISO Date of Service: 02/11/24 Procedure(s): US venous doppler LE BI Accession Number(s): [id number] cc: GAY ENCISO [place] [address] Patient Name: JONES PANIAGUA MRN: [id number] date: 1980 Sex: F Assigned Patient Location: US Current Patient Location: Accession/Order Number: [id number] Exam Date: 02/11/2024 16:20 Report Date: 02/12/2024 08:38 At the request of: GAY ENCISO Procedure: US venous doppler LE BI CLINICAL DATA: Leg pain. PROCEDURE: Bilateral lower extremity venous duplex ultrasound TECHNIQUE: Lei-scale, color flow, and waveform spectral analysis was performed of the bilateral lower extremities. FINDINGS: The bilateral common femoral, profunda femoral, femoral, and popliteal veins were compressible. The saphenous veins were compressible. No venous thrombosis was seen. The veins fill with color Doppler. Augmentation was normal. US/US venous doppler LE BI IMPRESSION: 1. No acute lower extremity deep venous thrombosis. 2. No superficial venous thrombosis. Electronically authenticated by: Mikie FELIX Date: 02/12/2024 08:38 Dictated By: Mikie Felix M.D. Signed By: 02/12/2441 DD/ TD/TT: Hotel Service Supervisor: [place] [address] Ultrasound Report Signed Patient: SORAYA PANIAGUA MR#: [id number] : 1980 Acct:[id number] Age/Sex: 43 / F ADM Date: 02/11/24 Loc: US Attending Dr: GAY ENCISO Ordering Physician: GAY ENCISO Date of Service: 02/11/24 Procedure(s): US kira ous doppler LE BI Accession Number(s): [id number] cc: GAY ENCISO [place] [id number] Patient Name: JONES PANIAGUA MRN: [id number] date: 1980 Sex: F Assigned Patient Location: US Current Patient Location: Accession/Order Numb er: [id number] Exam Date: 02/11/2024 16:20 Report Date: 02/12/2024 08:38 At the request of: GAY ENCISO Procedure: US venous doppler LE BI CLINICAL DATA: Leg pain. PROCEDURE: Bilateral lower extremity venous duplex ultrasound TECHNIQUE: Lei-scal e, color flow, and waveform spectral analysis was performed of the bilateral low er extremities. FINDINGS: The bilate ral common femoral, profunda femoral, femoral, and popliteal veins were compressible. The saphenous veins were compressible. No venous thrombosis wa s seen. The veins fill with color Doppler. Augmentation was normal. U S/US venous doppler LE BI IMPRESSION: 1. No acute lower extremity deep venous thrombosis. 2. No superficial ve nous thrombosis. Electronically authenticated by: Mikie FELIX Date: 02/12/2024 08:38 Dictated By: Mikie Felix M.D. Signed By: 02/12/2441 DD/ TD/TT: Hotel Service Supervisor: Blood Culture 2 Reviewed date:02/15/2024 03:59:37 PM Interpretation: Performing Lab: Notes/Report: [facility] , Blood Culture 2 See Below For Report Blood Culture 2 NG5D NO GROWTH AT 5 DAYS. Performing Lab: see note ML - [facility] LB PROF 14(COMP METB) Reviewed date:01/04/2024 09:10:09 AM Interpretation: Performing Lab: Notes/Report: [facility] , Sodium 136 136-145 mmol/L Potassium 3.9 3.5-5.1 mmol/L Chloride 101 98-107 mmol/L Carbon Dioxide 24.8 21.0-32.0 mmol/L Anion Gap 14.1 Glucose 138 74-106 mg/dL Blood Urea Nitrogen 15.0 7.0-18.0 mg/dL Creatinine 0.95 0.55-1.02 mg/dL Estimated GFR ( Cindi >60 >=60 Estimated GFR (Non- Coretta >60 >=60 BUN Creatinine Ratio 15.8 Calcium 8.8 8.5-10.1 mg/dL Bilirubin Total 0.2 0.2-1.0 mg/dL Aspartate Amino Transferase 9 15-37 U/L Alanine Aminotransferase 37 14-59 U/L Alkaline Phosphatase 74 46-116 U/L Total Protein 6.9 6.4-8.2 g/dL Albumin Level 3.3 3.4-5.0 g/dL Globulin 3.6 Albumin Globulin Ratio 0.9 Performing Lab: see note ML - [facility] LB CBC AUTO DIFF Reviewed date:01/04/2024 09:10:09 AM Interpretation: Performing Lab: Notes/Report: [facility] , White Blood Count 13.6 4.0-11.0 10 3/uL Red Blood Count 4.35 4.20-5.40 10 6/uL Hemoglobin 13.0 12.0-16.0 g/dL Hematocrit 39.3 36.0-48.0 % Mean Corpuscular Volume 90.3 81.0-99.0 fL Mean Corpuscular Hemoglobin 29.9 26.7-34.0 pg Mean Corpuscular HGB Conc 33.1 29.9-35.2 g/dL Red Cell Distribution Width 14.6 11.0-15.0 % Platelet Count 283 150-450 10 3/uL Mean Platelet Volume 9.9 9.5-13.5 fL Neutrophils Percent Auto 71.7 43.0-75.0 % Lymphocytes Percent Auto 19.7 20.5-60.0 % Monocytes Percent Auto 6.8 1.7-12.0 % Eosinophils Percent Auto 0.7 0.9-7.0 % Basophils Percent Auto 0.4 0.2-2.0 % Immature Granulocytes Pct Auto 0.7 0.0-0.5 % Neutrophils Absolute Auto 9.7 1.4-6.5 10 3/uL Lymphocytes Absolute Auto 2.7 1.2-3.8 10 3/uL Monocytes Absolute Auto 0.9 0.3-0.8 10 3/uL Eosinophils Absolute Auto 0.1 0.0-0.7 10 3/uL Basophils Absolute Auto 0.1 0.0-0.1 10 3/uL Immature Granulocytes Abs Auto 0.10 0.00-0.03 10 3/uL Performing Lab: see note - [facility] LB C. Difficile PCR Reviewed date:12/29/2023 08:40:21 AM Interpretation: Performing Lab: Notes/Report: [facility] , C. Difficile PCR NEGATIVE NEGATIVE Performing Lab: see note - [facility] LB CT angio chest Reviewed date:12/16/2023 12:45:26 PM Interpretation: Performing Lab: Notes/Report: Source Facility: [place] [address] CT Scan Report Signed Patient: JONES PANIAGUA MR#: [id number] : 1980 Acct:[id number] Age/Sex: 43 / F ADM Date: 12/11/23 Loc: CT Attending Dr: Madelaine Klein M.D. Ordering Physician: Madelaine Klein M.D. Date of Service: 12/11/23 Procedure(s): CT angio chest Accession Number(s): [id number] cc: GAY ENCISO [place] [address] Patient Name: JONES PANIAGUA MRN: [id number] date: 1980 Sex: F Assigned Patient Location: CT Current Patient Location: Accession/Order Number: [id number] Exam Date: 12/11/2023 10:10 Report Date: 12/15/2023 09:02 At the request of: MADELAINE KLEIN Procedure: CT angio chest EXAMINATION: CT angio chest HISTORY: I26.99; Pulmonary Embolism ; follow-up left chest pain, left shoulder pain COMPARISON: CTA chest 12/05/2023 TECHNIQUE: Multi-planar CT images were created with IV contrast. Axial, Coronal, and Sagittal images. Dose reduction techniques were achieved by using automated exposure control and/or adjustment of mA and/or kV according to patient size and/or use of iterative reconstruction technique. 3-D reconstruction was performed on a separate workstation. FINDINGS: VASCULATURE: No pulmonary embolism or abnormal opacity. LUNGS: No visible pulmonary disease. PLEURA: No mass, effusion, or pneumothorax. KATHY: No mass or adenopathy. MEDIASTINUM: No mass or adenopathy. CARDIAC: No enlargement, pericardial effusion, or pericardial thickening. AORTA: No aneurysm or dissection. CHEST WALL: No mass or axillary adenopathy. BONES: No bone lesion or fracture. LIMITED ABDOMEN: No suspicious findings. Limited images of the upper abdomen. OTHER: Negative. CT/CT angio chest IMPRESSION: 1. No pulmonary embolism. 2. No acute infiltrates or suspicious findings within the lungs. Electronically authenticated by: SAYDA YUSUF Date: 12/15/2023 09:02 Dictated By: Sayda Yusuf M.D. Signed By: 12/15/23904 DD/ 1 TD/TT: Hotel Service Supervisor: [place] [address] CT Scan Report Signed Patient: SORAYA PANIAGUA MR#: [id number] : 1980 Acct:[id number] Age/Sex: 43 / F ADM Date: 12/11/23 Loc: CT Attending Dr: Jaqui Klein M.D. Ordering Physician: Madelaine Klein M.D. Date of Service: 12/11/23 Procedure(s): CT ang io chest Accession Number(s): [id number] cc: GAY ENCISO [place] [address] Patient Name: JONES PANIAGUA MRN: [id number] date: 1980 Sex: F Assigned Patient Location: CT Current Patient Location: Accession/Order Numb er: [id number] Exam Date: 12/11/2023 10:10 Report Date: 12/15/2023 09:02 At the request of: MADELAINE KLEIN Procedure: CT angio chest EXAMINATION: CT cheko o chest HISTORY: I26.99; Pulmonary Embolism ; follow-up left chest pain, left shoulder pain COMPARISON: CTA ches t 12/05/2023 TECHNIQUE: Multi-randee anuja CT images were created with IV contrast. Axial, Coronal, and Sagitta l images. Dose reduction techniques were achieved by using automated exposure control and/or adjustment of mA and/or kV according to patient size and/or use of iterative reconstruction technique. 3-D reconstruction was performed on a separate workstation. FINDINGS: VASCULATURE: No pulm onary embolism or abnormal opacity. LUNGS: No visible pulmonary disease. PLEURA: No mass, effusion, or pneumothorax. KATHY: No mass or adenopathy. MEDIASTINUM: No mass or adenopathy. CARDIAC: No enlargem ent, pericardial effusion, or pericardial thickening. AORTA: No aneurysm o r dissection. CHEST WALL: No mass or axillary adenopathy. BONES: No bone lesio n or fracture. LIMITED ABDOMEN: No suspicious findings. Limited images of the upper abdomen. OTHER: Negative. C T/CT angio chest IMPRESSION: 1. No pulmonary embolism. 2. No acute infiltra alison or suspicious findings within the lungs. Electronically authenticated by: SAYDA YUSUF Date: 12/15/2023 09:02 Dictated By: Sayda Yusuf M.D. Signed By: 12/15/23904 DD/ 1 TD/TT: Hotel Service Supervisor: C. Difficile PCR Reviewed date:11/29/2023 02:55:04 PM Interpretation: Performing Lab: Notes/Report: [facility] , C. Difficile PCR NEGATIVE NEGATIVE Performing Lab: see note - [facility] LB DHEA, Serum Reviewed date:11/23/2023 12:39:19 PM Interpretation: Performing Lab: Notes/Report: [facility] , DHEA, Serum 25 31-701 ng/dL This test was developed and its performance characteristics determined by [facility]. It has not been cleared or approved by the Food and Drug Administration. Performed at: [facility] [id number] Marketing Services Manager: Senait Hardin MD, Phone: [phone] Performing Lab: see note - [facility] LB US pelvis w/ transvaginal Reviewed date:11/19/2023 08:42:00 AM Interpretation: Performing Lab: Notes/Report: Source Facility: [facility] [place] [address] [place] [address] Ultrasound Report Signed Patient: JONES PANIAGUA MR#: [id number] : 1980 Acct:[id number] Age/Sex: 43 / F ADM Date: 11/18/23 Loc: US Attending Dr: Luan Valdivia D.O. Ordering Physician: Luan Valdivia D.O. Date of Service: 11/18/23 Procedure(s): US pelvis w/ transvaginal Accession Number(s): [id number] cc: GAY ENCISO ; Luan Valdivia D.O. [place] [id number] Patient Name: JONES PANIAGUA MRN: [id number] date: 1980 Sex: F Assigned Patient Location: US Current Patient Location: US Accession/Order Number: [id number] Exam Date: 11/18/2023 14:00 Report Date: 11/18/2023 16:39 At the request of: LUAN VALDIVIA Procedure: US pelvis w/ transvaginal EXAMINATION: US pelvis w/ transvaginal HISTORY: IRREGULAR PERIODS/MENSTRUAL CYCLES COMPARISON: No relevant comparison available. FINDINGS: Transabdominal and transvaginal images The uterus is normal in size and contour measuring 8.6 x 4.7 x 6.6 cm. Identified in the posterior myometrium is a focal 1.5 x 1.3 x 2 cm heterogeneous mass with calcifications The endometrium measures 11 mm, normal. The right ovary is normal measuring 3.1 x 1.8 x 1.9 cm. Normal color Doppler flow The left ovary is normal measuring 2.8 x 2.7 x 2.0 cm. Normal color Doppler flow No ascites US/US pelvis w/ transvaginal IMPRESSION: 2 cm posterior myometrial mass, a fibroid is favored Electronically authenticated by: AURORA SHAIKH Date: 11/18/2023 16:39 Dictated By: Aurora Shaikh M.D. Signed By: 11/18/23 1642 DD/ 163 TD/TT: Hotel Service Supervisor: [place] [address] Ultrasound Report Signed Patient: SORAYA PANIAGUA MR#: [id number] : 1980 Acct:[id number] Age/Sex: 43 / F ADM Date: 11/18/23 Loc: US Attending Dr: Luan Valdivia D.O. Ordering Physician: Luan Valdivia D.O. Date of Service: 11/18/23 Procedure(s): US pel vis w/ transvaginal Accession Number(s): [id number] cc: GAY ENCISO ; Luan Valdivia D.O. [place] [address] Patient Name: JONES PANIAGUA MRN: [id number] date: 1980 Sex: F Assigned Patient Location: US Current Patient Loca tion: US Accession/Order Numb er: [id number] Exam Date: 11/18/2023 14:00 Report Date: 11/18/2023 16:39 At the request of: LUAN VALDIVIA Procedure: US pelvis w/ transvaginal EXAMINATION: US pelv is w/ transvaginal HISTORY: IRREGULAR PERIODS/MENSTRUAL CYCLES COMPARISON: No relev ant comparison available. FINDINGS: Transabdominal and transvaginal images The uterus is normal in size and contour measuring 8.6 x 4.7 x 6.6 cm. Identified in the posterior myometrium is a focal 1.5 x 1.3 x 2 cm heterogeneous mass w ith calcifications The endometrium ana ures 11 mm, normal. The right ovary is n ormal measuring 3.1 x 1.8 x 1.9 cm. Normal color Doppler flow The left ovary is no rmal measuring 2.8 x 2.7 x 2.0 cm. Normal color Doppler flow No ascites U S/US pelvis w/ transvaginal IMPRESSION: 2 cm posterior myome trial mass, a fibroid is favored Electronically authenticated by: AURORA SHAIKH Date: 11/18/2023 16:39 Dictated By: Dereck Shaikh M.D. Signed By: 11/18/23 1642 DD/ 163 TD/TT: Hotel Service Supervisor: DHEA-Sulfate Reviewed date:11/19/2023 08:42:00 AM Interpretation: Performing Lab: Notes/Report: [facility] , DHEA-Sulfate 15.4 57.3-279.2 ug/dL Performing Lab: see note - [facility] LB FSH Reviewed date:11/19/2023 08:42:00 AM Interpretation: Performing Lab: Notes/Report: [facility] , FSH 13.0 . mIU/mL Adult Female Range Follicular phase 3.5 - 12.5 Ovulation phase 4.7 - 21.5 Luteal phase 1.7 - 7.7 Postmenopausal 25.8 - 134.8 Performing Lab: see note - [facility] LB Luteinizing Hormone(LH) Reviewed date:11/19/2023 08:42:00 AM Interpretation: Performing Lab: Notes/Report: [facility] , Luteinizing Hormone(LH) 24.9 . mIU/mL Adult Female Range Follicular phase 2.4 - 12.6 Ovulation phase 14.0 - 95.6 Luteal phase 1.0 - 11.4 Postmenopausal 7.7 - 58.5 Performing Lab: see note [facility] LB TSH Reviewed date:11/18/2023 04:24:51 PM Interpretation: Performing Lab: Notes/Report: [facility] , Thyroid Stimulating Hormone 0.477 0.358-3.740 uIU/mL Performing Lab: see note [facility] LB PROLACTIN Reviewed date:11/19/2023 08:42:00 AM Interpretation: Performing Lab: Notes/Report: [facility] , Prolactin 4.7 4.8-33.4 ng/mL Performed at: [address] [id number] Marketing Services Manager: Doyle Mendenhall PhD, Phone: [phone] Performing Lab: see note [facility] LB PREG QUANT HCG Reviewed date:11/18/2023 04:24:51 PM Interpretation: Performing Lab: Notes/Report: [facility] , HCG Quantitative <1 5-50 0.2-1 WEEK 50-500 1-2 WEEKS 100-5,000 2-3 WEEKS 500-10,000 3-4 WEEKS 1,000-50,000 4-5 WEEKS 10,000-100,000 5-6 WEEKS 15,000-200,000 6-8 WEEKS 10,000-100,000 2-3 MONTHS Performing Lab: see note - [facility] LB FREE T4 Reviewed date:11/18/2023 04:24:51 PM Interpretation: Performing Lab: Notes/Report: [facility] , Free T4 1.13 0.76-1.46 ng/dL Performing Lab: see note ML - [facility] LB US THYROID Reviewed date:08/27/2024 09:41:57 PM Interpretation: Performing Lab: Notes/Report: Source Facility: [facility]-[address] [place] [address] [place] [address] Ultrasound Report Signed Patient: JONES PANIAGUA MR#: [id number] : 1980 Acct:[id number] Age/Sex: 43 / F ADM Date: 08/24/24 Loc: US Attending Dr: Gordo Barfield M.D. Ordering Physician: Gordo Barfield M.D. Date of Service: 08/24/24 Procedure(s): US thyroid Accession Number(s): [id number] cc: GAY ENCISO ; Gordo Barfield M.D. [place] [address] Patient Name: JONES PANIAGUA MRN: [id number] date: 1980 Sex: F Assigned Patient Location: US Current Patient Location: US Accession/Order Number: [id number] Exam Date: 08/24/2024 09:09 Report Date: 08/24/2024 [...] this was thought to be cystic. The metal building assembler today considered it solid and it was given TI-RADS 4 classification. No internal color flow is shown. Size has not significantly changed when measuring in a comparable manner. No other nodularity is seen. US/US thyroid IMPRESSION: SIMILAR SMALL LEFT THYROID NODULE. FOLLOW-UP IN ONE YEAR IS SUGGESTED. Impression dictated by: Simin Nelson M.D.08/24/2024 9:22 AM Dictation Location: [place] [address] Electronically authenticated by: [id number] Y Date: 08/24/2024 09:22 Dictated By: Simin Nelson M.D. Signed By: 08/24/24923 DD/ 1 TD/TT: Hotel Service Supervisor: [place] [address] Ultrasound Report Signed Patient: SORAYA PANIAGUA MR#: [id number] : 1980 Acct:[id number] Age/Sex: 43 / F ADM Date: 08/24/24 Loc: US Attending Dr: Gordo Barfield M.D. Ordering Physician: Gordo Barfield M.D. Date of Service: 08/24/24 Procedure(s): US thyroid Accession Number(s): [id number] cc: GAY ENCISO ; Gordo Barfield M.D. [place] [id number] Patient Name: JONES PANIAGUA MRN: [id number] date: 1980 Sex: F Assigned Patient Location: US Current Patient Loca tion: US Accession/Order Numb er: [id number] Exam Date: 08/24/2024 09:09 Report Date: 08/24/2024 09:22 At the request of: GORDO BARFIELD MD Procedure: US thyroid THYROID ULTRASOUND COMPARISON: CT neck 09/07/2023 and ultrasound 08/11/2023 CLINICAL DATA: Follo w-up thyroid nodule The right thyroid lo be measures 5.3 x 1.8 x 2.7 cm. The left lobe measures 4.1 x 1.4 x 1.9 cm. The isthmus measures 5 mm. Thyroid echotexture is mildly heterogeneous. At th e inferior pole on the left, there is still a hypoechoic nodule with hyperech oic component measuring 11 x 8 x 6 mm. At the time of the prior this was thoug ht to be cystic. The metal building assembler today considered it solid and it was giv en TI-RADS 4 classification. No internal color flow is shown. Size has not significantly changed when measuring in a comparable manner. No other nodularity is seen. U S/US thyroid IMPRESSION: SIMILAR SMALL LEFT THYROID NODULE. FOLLOW-UP IN ONE YEAR IS SUGGESTED. Impression dictated by: Simin Nelson M.D.08/24/2024 9:22 AM Dictation Location: [place] [address] Electronically authenticated by: [id number] Y Date: 08/24/2024 09:22 Dictated By: Simin Nelson M.D. Signed By: 08/24/24923 DD/ 1 TD/TT: Hotel Service Supervisor: CBC AUTO DIFF Reviewed date:05/15/2024 01:58:59 PM Interpretation: Performing Lab: Notes/Report: [facility] , White Blood Count 12.6 4.0-11.0 10 3/uL Red Blood Count 4.44 4.20-5.40 10 6/uL Hemoglobin 13.4 12.0-16.0 g/dL Hematocrit 42.7 36.0-48.0 % Mean Corpuscular Volume 96.2 81.0-99.0 fL Mean Corpuscular Hemoglobin 30.2 26.7-34.0 pg Mean Corpuscular HGB Conc 31.4 29.9-35.2 g/dL Red Cell Distribution Width 14.2 11.0-15.0 % Platelet Count 305 150-450 10 3/uL Mean Platelet Volume 9.9 9.5-13.5 fL Neutrophils Percent Auto 75.9 43.0-75.0 % Lymphocytes Percent Auto 16.4 20.5-60.0 % Monocytes Percent Auto 5.8 1.7-12.0 % Eosinophils Percent Auto 0.6 0.9-7.0 % Basophils Percent Auto 0.6 0.2-2.0 % Immature Granulocytes Pct Auto 0.7 0.0-0.5 % Neutrophils Absolute Auto 9.6 1.4-6.5 10 3/uL Lymphocytes Absolute Auto 2.1 1.2-3.8 10 3/uL Monocytes Absolute Auto 0.7 0.3-0.8 10 3/uL Eosinophils Absolute Auto 0.1 0.0-0.7 10 3/uL Basophils Absolute Auto 0.1 0.0-0.1 10 3/uL Immature Granulocytes Abs Auto 0.09 0.00-0.03 10 3/uL Performing Lab: see note ML - [facility] Reason For Referral Diagnosis 1 Lower extremity pain (M79.606) Diagnosis 2 Cold extremities (R6 8.89) Referral Organization [facility] Referring Provider First Name Gay Referring Provider Last Name Britt Referring Provider [facility] Referred Provider Judy Arciniega Referred Provider Specialty Vascular Mary ceasar Referral Priority Routine Diagnosis 1 Hypertension (I10) Referral Organization [facility] Referring Provider First Name Gay Referring Provider Last Name Britt Referring Provider [facility] Referred Provider Eladio Paula Referred Provider Specialty Cardiology Referral Priority Routine Medications Medication SIG (Take, Route, Frequency, Duration) Notes Start Date End Date Status Cyanocobalamin 1000 MCG/ML 1 mL Injection monthly 12/28/2023 Active Imuran 50 MG 3 tablets Orally onc e daily Active Hydroxychloroquine Sulfate 400 MG 1 capsule Orally once daily for 30 days Active Methocarbamol 750 MG 1 tablet Orally Q H S prn for 10 days 07/27/2023 Active KlonoPIN 0.5 MG 1 tablet Orally Once a day prn for 30 days 10/06/2024 Active Dificid 200 MG 1 tablet Orally Twic e a day for 10 day(s) 08/11/2024 Active Cymbalta 20 MG 1 capsule Orally Onc e a day for 30 days 02/01/2024 Active Folic Acid Active Fluocinonide 0.05 % 1 application Product Builder ally Once a day- as needed for 30 days Active Metoprolol Tartrate 50 MG TAKE 2 TABLETS BY MOUTH TWICE A DAY WITH FOOD for 90 days Active Pantoprazole Sodium 40 MG 1 tablet 1/2 t o 1 hour before morning meal Orally Once a day for 90 days 07/27/2024 Active Nystatin 391043 UNIT/ML 4 mL Mouth/Throa t Four times a day for 7 days Active Benlysta 200 MG/ML 200mg Subcutaneous o nce weekly Active Vitamin D (Ergocalciferol) 1.25 MG (01124 UT) 1 capsule Orally once weekly for 28 days Active amLODIPine Besylate 5 MG 1 tablet Orally Once a day for 30 days 02/03/2024 Active Vancomycin HCl 125 MG 1 capsule Orally O nce a day for 15 days 04/14/2024 Active Clobetasol Propionate 0.05 % APPLY TO SCALP IN SHOWER 3 TO 4 TIMES A WEEK External for 30 Days Active Cephalexin 500 MG 2 tabs Orally bid fo r 10 days 08/11/2024 Active Voltaren 1 % as directed External ly as needed 02/01/2024 Active Pregabalin 75 MG 3 capsule Orally onc e daily- as needed for 30 days Active predniSONE 10 MG 1 tablet Orally once daily for 30 days Active Clotrimazole 10 MG 1 bk while on immunosuppressive medicine Mouth/Throat Three times a day for 30 day(s) 08/11/2024 Active Albuterol Sulfate HFA 108 (90 Base) MCG/ACT 2 puff as needed Inhalation every 4 hrs for 30 days 08/05/2023 Active Trulicity 1.5 MG/0.5ML as directed Subcu taneous weekly for 28 days 07/04/2024 Active Triamcinolone Acetonide 0.025 % APPLY TO AFFECTED AREA TWICE DAILY NEEDED FOR 30 DAYS External for 30 Days Active Clotrimazole 10 MG 1 bk Mouth/Throa t Five times a day for 14 days 04/05/2024 Active Social History Tobacco Use: Social History [...] User Modera te cigarette smoker (10-19 cigs/day) Problems Problem Type SNOMED Code ICD Code Onset Dates Problem Status W/U Status Risk Notes Problem Chronic fatigue syndrome (07027909) Chronic fatigue (780.79) Active confirmed Problem 34839470 Nontoxic single thyroid nodule (E04.1) Active confirmed Problem 95183731 Sleep apnea, unspecified (G47.30) Active confirmed Problem 48039188 Generalized enlarged lymph nodes (R59.1) Active confirmed Problem Hypertension (04531961) Hypertension (I10) Active confirmed Problem Gastroesophageal reflux disease (475738365) GERD (gastroesophage al reflux disease) (K21.9) Active confirmed Problem Anxiety (96108678) Anxiety (F41.9) Active confi rmed Problem Leukocytosis (021206755) Elevated WBC count (D72.829) Active confirmed Problem Thyroid nodule (588350560) Thyroid nodule (E04.1) Active confirmed Problem Lupus (206011490) Lupus (M32.9) Active confirme d Problem Abdominal pressure (443994915) Abdominal pressure (R10.9) Active confirmed Problem Raynaud's disease (197195430) Raynauds phenomenon (I73.00) Active confirmed Problem 32119902 Pure hypercholestero lemia, unspecified (E78.00) Active confirmed Problem Prediabetes (847375023) Pre-diabetes (R73.03) Active confirmed Vital Signs Temperature 98.2 degrees Fahrenheit 05/15/2024 Blood pressure diastolic 68 mm Hg 08/11/2024 Height 67 in 10/23/2024 Blood pressure systolic 120 mm Hg 08/11/2024 Weight 290 lbs 08/11/2024 BMI 45.42 kg/m2 08/11/2024 Procedures Procedure Date Ordered Date Performed Result Body Sit e Echocardiogram 02/10/2024 N/A Encounters Encounter Location Date Provider Diagnosis [address] [address] 12/06/2023 Gay Enciso Pulmonary embolism I26.[address] [address] 01/03/2024 Gay Enciso Elevated WBC count D72.[address] [address] 02/01/2024 Gay Enciso Anxiety F41.9 and Raynauds phenomenon I73.[address] [address] 02/10/2024 Gay Enciso Hypertension I10 and Lower extremity pain M79.[address] [address] 04/05/2024 Gay Enciso Oral candidiasis B37 .[address] [place] [address] 04/14/2024 Gay Enciso Lupus M32.9 [facility] [address] [place] [facility] [place] [address] 05/15/2024 Gay Enciso Enlarged lymph nodes R59.9 and C. difficile diarrhea A04.72 [facility] [address] [place] [facility] [place] [address] 07/04/2024 Gay Enciso Pre-diabetes R73.03 and Thrush B37.0 [facility] [address] [place] [facility] [place] [address] 07/27/2024 Gay Enciso GERD (gastroesophage al reflux disease) K21.9 and Anxiety F41.9 [facility] [address] [place] [facility] [place] [address] 08/11/2024 Víctor Hoy Generalized enlarged lymph nodes R59.1 and Elevated WBC count D72.829 [place] [address] [place] [facility] [place] [address] 10/23/2024 Gayomer Enciso Diarrhea R19.7 ; [place] D (gastroesophageal reflux disease) K21.9 and Generalized enlarged lymph nodes R59.1 [facility] [address] [place] [facility] [place] [address] 12/06/2023 Gay Enciso [facility] [address] [place] [facility] [place] [address] 12/08/2023 Gay Enciso Pulmonary embolism I26.99 [facility] [address] [facility] [place] [address] 12/10/2023 Víctor Hoy [facility] [address] [place] [facility] [place] [address] 12/16/2023 Gay Enciso [facility] [address] [place] [facility] [place] [address] 12/20/2023 Gay Enciso Diarrhea R19.7 [facility] [address] [place] [facility] [place] [address] 12/28/2023 Gay Enciso [facility] [address] [place] [address] 12/29/2023 Gay Enciso [facility] [address] [place] [address] 01/03/2024 Gay Enciso [facility] [address] [place] [address] 01/04/2024 Gay Enciso Elevated WBC count D72.829 [facility] [address] [place] [address] 01/12/2024 Gay Enciso [facility] [address] [place] [address] 02/02/2024 Gay Enciso [facility] [address] [place] [place] [address] 02/03/2024 Gay Enciso [facility] [address] [place] [address] 02/08/2024 Gay Enciso [facility] [address] [place] [address] 02/15/2024 Gay Enciso [facility] [address] [place] [address] 02/16/2024 Gay Enciso Lower extremity pain M79.606 and Cold extremities R68.89 [facility] [address] [place] [address] 02/21/2024 Gay Enciso Elevated WBC count D72.829 [facility] [address] [place] [address] 02/24/2024 Gay Enciso [facility] [address] [place] [address] 02/25/2024 Gay Enciso Hypertension I10 [facility] [address] [place] [address] 02/28/2024 Gay Enciso [facility] [address] [place] [address] 03/06/2024 Gay Enciso Diarrhea R19.7 [facility] [address] [facility] [place] [address] 04/11/2024 Gay Enciso [facility] [address] [facility] [place] [address] 04/17/2024 Gay Enciso [facility] [address] [facility] [place] [address] 04/17/2024 Gay Enciso [facility] [address] [facility] [place] [address] 04/28/2024 Gay Enciso Hypertension I10 [facility] [address] [facility] [place] [address] 04/28/2024 aGy Enciso Anxiety F41.9 [facility] [address] [facility] [place] [address] 05/01/2024 Gay Enciso Hypertension I10 and Oral candidiasis B37.0 [facility] [address] [place] [facility] [place] [address] 05/15/2024 Gay Enciso [facility] [address] [place] [facility] [place] [address] 06/16/2024 Gay Enciso Hypertension I10 [facility] [address] [place] [facility] [place] [address] 07/04/2024 Gay Enciso [facility] [address] [facility] [place] [address] 07/27/2024 Gay Enciso [facility] [address] [place] [facility] [place] [address] 08/16/2024 Gay Enciso Pre-diabetes R73.03 [facility] [address] [place] [facility] [place] [address] 08/24/2024 Gay Enciso [facility] [address] [place] [facility] [place] [address] 09/01/2024 Gay Enciso Anxiety F41.9 [facility] [address] [place] [facility] [place] [address] 10/06/2024 Gay Enciso Anxiety F41.9 and Diarrhea R19.7 [facility] [address] [place] [address] 10/13/2024 Gay Enciso [facility] [address] [place] [address] 10/13/2024 Gay Enciso Assessments Encounter Date Diagnosis (ICD Code) Assessment Notes Treatment Notes Treatment Clinical Notes Section Notes 12/06/2023 Pulmonary embolism (ICD-10 - I26.99) repeat CT ? on Xarelto 3-6 months 01/03/2024 Elevated WBC count (ICD-10 - D72.829) has fu with ID known breast infection smokes 02/01/2024 Anxiety (ICD-10 - F41.9) 02/01/2024 Raynauds phenomenon (ICD-10 - I73.00) monitor BP fu rheum 02/10/2024 Hypertension (ICD-10 - I10) 02/10/2024 Lower extremity pain (ICD-10 - M79.606) referral to vein clinic fu rheum raynauds has not tried [facility] 04/05/2024 Oral candidiasis (ICD-10 - B37.0) fu as needed 04/14/2024 Lupus (ICD-10 - M32.9) c diff prophylaxis Vanco 125 mg 05/15/2024 Enlarged lymph nodes (ICD-10 - R59.9) 05/15/2024 C. difficile diarrhea (ICD-10 - A04.72) hx of on Amoxicillin, concerned for recurrence 07/04/2024 Thrush (ICD-10 - B37.0) requesting referral [facility] for second opinion recurrent thrush? roof of mouth sore, coating 07/04/2024 Pre-diabetes (ICD-10 - R73.03) 07/27/2024 GERD (gastroesophagea l reflux disease) (ICD-10 - K21.9) 07/27/2024 Anxiety (ICD-10 - F41.9) CSA signed OARRS reviewed discussed need to fu psych will prescribe klonopin short term, helped in past pt voices understanding 08/11/2024 Generalized enlarged lymph nodes (ICD-10 - R59.1) 08/11/2024 Elevated WBC count (ICD-10 - D72.829) 10/23/2024 Diarrhea (ICD-10 - R19.7) 12/08/2023 Pulmonary embolism (ICD-10 - I26.99) 12/20/2023 Diarrhea (ICD-10 - R19.7) 01/04/2024 Elevated WBC count (ICD-10 - D72.829) 02/16/2024 Lower extremity pain (ICD-10 - M79.606) 02/16/2024 Cold extremities (ICD-10 - R68.89) 02/21/2024 Elevated WBC count (ICD-10 - D72.829) 02/25/2024 Hypertension (ICD-10 - I10) 03/06/2024 Diarrhea (ICD-10 - R19.7) 04/28/2024 Hypertension (ICD-10 - I10) 04/28/2024 Anxiety (ICD-10 - F41.9) 05/01/2024 Hypertension (ICD-10 - I10) 06/16/2024 Hypertension (ICD-10 - I10) 08/16/2024 Pre-diabetes (ICD-10 - R73.03) 09/01/2024 Anxiety (ICD-10 - F41.9) 10/06/2024 Anxiety (ICD-10 - F41.9) 10/23/2024 GERD (gastroesophagea l reflux disease) (ICD-10 - K21.9) 10/06/2024 Diarrhea (ICD-10 - R19.7) 05/01/2024 Oral candidiasis (ICD-10 - B37.0) 10/23/2024 Generalized enlarged lymph nodes (ICD-10 - R59.1) Plan Of Treatment Pending Test Test Name Order Date CMP (COMPLETE METABOLIC PANEL) CMP (COMPLETE METABOLIC PANEL) CULTURE, STOOL 10/23/2024 HEMOGLOBIN A1C (GLYCO) 07/27/2024 HEMOGLOBIN A1C (GLYCO) 06/24/2023 IRON, TOTAL 07/27/2024 LIPID PANEL (CHOL/TRIG/HDL/LDL) 07/28/19 CBC WITH DIFF 07/27/2024 CBC WITH DIFF 01/03/2024 CBC WITH DIFF 06/24/2023 CBC WITH DIFF 05/15/2024 UA (REFLEX URINALYSIS TO CULTURE) 2023 VITAMIN D, 25 LEVEL (TOTAL) 07/27/2024 Echocardiogram 02/10/2024 XR Abdomen AP (1 view) (KUB) * CT Abdomen and Pelvis w/wo contrast 06/2023 US Thyroid 07/27/2023 C DIFFICILE BY PCR 03/06/2024 PFT Complete 08/17/2023 Insulin Level 07/27/2024 C DIFF TOX PCR STOOL 07/20/2023 C DIFF TOX PCR STOOL 10/23/2024 C DIFF TOX PCR STOOL 10/06/2024 C DIFF TOX PCR STOOL 09/08/2023 C DIFF TOX PCR STOOL 12/20/2023 C. DIFF PCR 08/10/2023 C. DIFF PCR 07/27/2023 CULTURE URINE 06/25/2023 LIPID PROFILE 02/10/2023 STOOL CULTURE 07/27/2023 STOOL CULTURE 09/08/2023 STOOL CULTURE 10/06/2024 VITAMIN B12 07/27/[address] WO CON 08/20/[address] HEAD_NECK 07/27/2023 US KIRA DOP LEG MARK 02/10/2024 XR CHEST 2 V 08/17/2023 THYROID PANEL (T4/TSH/FREE T3) CT angio chest 12/08/2023 H. pylori Stool Ag, EIA 10/23/2024 CMP (COMP MET ONEIL) w/eGFR CKD-EPI 2024 Insurance Providers Payer Name Payer Address Payer Phone Subscriber Number Group Number Insured Name Patient Relationship to Insured Coverage Start Date Coverage End Date [employer] [place] [employer] [address] [place] [address] [id number] Jones Paniagua Self - patient is the insured Medical (General) History Medical History History ICD Code Chronic fatigue 780.79 Anxiety F41.9 Cervical lymphadenopathy R59.0 GERD (gastroesophageal reflux disease) K 21.9 Hypercholesterolemia E78.00 Hyperlipidemia E78.5 Lupus M32.9 Tachycardia R00.0 Prediabetes R73.09 Hypertension I10 Surgical History Surgery Date(Month/Year) lymph node biopsy 2020
--- OUTSIDE RECORDS SUMMARY | 2024-10-24 10:11 | XMS_ITS | Encounter Summary ---
Author Organization [facility] Address [address] [place] [address] Care Team Providers Care Auto Cleaner Name Role Phone Aime Davidson MD, Lui Nunez Primary Care Provid er Gay De La Torre(Historical) MACHINE SCALLOP CUTTER.SENIOR LINUX ENGINEER Primary Care Provider Unavailable Manuel Klein MD Unavailable Manuel Klein MD Primary Care Provider [phone] Manuel Klein MD Unavailable [phone] Source Comments In the event this information is protected by the Federal Confidentiality of Alcohol and Drug AbusePatient Records regulations: The Federal rules restrict any use of the information to criminally investigate or prosecute any alcohol or drug abuse patient.[facility] Encounter Details Date Type Department Care Team (Late st Contact Info) Description 12/31/2014 Get Medical Advice Internal Medicine [facility] [place] [address] Lui Salomon Jr., MD [address] [address] Medication Question (Not Renewal) Social History Tobacco [...] encounter Miscellaneous Notes * Telephone Encounter - Chichi Zarco Ma - 12/31/2014 7:58 AM EDT Pt request medication to relieve yeast infection symptoms, see my chart message. Chichi Zarco Ma documented in this encounter Plan of Treatment Upcoming Encounters Date Type Department Care Team (Latest Contact Info) Description 11/01/2024 9:00 AM EDT [facility] Hematology/Oncology [address] [place] [address] [place] [address] IVIG q 4 weeks with B 12 inj and lab 11/29/2024 8:45 AM EDT Office Visit [facility] [address] [place] [address] 3 mo F/U-IVIG(slow infusion per pt request/B12 +/-IV iron lab 11/29/2024 9:00 AM EDT Visit (SP) Office Hematology/Oncology [address] [place] [address] Fara Lopez, MACHINE SCALLOP CUTTER.SENIOR LINUX ENGINEER [address] [place] [address] 3 mo F/U-IVIG(slow infusion per pt request/B12 +/-IV iron lab 11/29/2024 9:30 AM EDT Infusion Center Hematology/Oncology [address] [place] [address] [place] [address] 3 mo F/U-IVIG(slow infusion per pt request/B12 +/-IV iron lab documented as of this encounter Visit Diagnoses Not on filedocumented in this encounter Care Teams Auto Cleaner Relationship Specialty Start Date End Date Lui Salomon Jr., MD PCP - General Internal Medicine 05/31/14 07/08/20 Gay De La Torre(Historical), MACHINE SCALLOP CUTTER.SENIOR LINUX ENGINEER PCP - General Family Medicine 10/24/21 02/26/22 Manuel Klein MD PCP - General Family Medicine 02/27/22 Manuel Klein MD Referring Family Medicine 02/12/22 Manuel Klein MD [address] [place] [address] Referring Family Medicine 07/06/24 documented as of this encounter
--- OUTSIDE RECORDS SUMMARY | 2024-10-24 10:11 | XMS_ITS | Encounter Summary ---
Author Organization [facility] Address [address] [place] [address] Care Team Providers Care Reclaimer Name Role Phone House, Charles Culver MD Primary Care Provider [phone] Gay De La Torre MD Unavailable [phone] Encounter Details Date Type Department Care Team (Late st Contact Info) Description 09/29/2023 Clinisync Result Encounter [facility] External Department Unsolicited Sharron Rogers, RETAIL SERVICE TECHNICIAN [address] [facility] [address] [id number] Social History Tobacco Use Types Packs/Day Years [...] [facility] [place] [address] [place] [address] Mary Grace Mejias MD [address] [facility] [address] [place] [address] 07/25/2025 11:00 AM EST Office Visit [facility] [address] [facility] [address] [place] [address] Cynthia English MD [address] [place] [address] documented as of this encounter Procedures Procedure Name Priority Date/Time Associated Diagnosis Comments XR LUMBAR SPINE MIN 4V 09/29/2023 7:22 AM EDT documented in this encounter Results * XR LUMBAR SPINE MIN 4V (09/29/2023 7:22 AM EDT) Anatomical Region Laterality Modality Other 09/29/2023 7:22 AM EDT Narrative 09/29/2023 7:25 AM EDT [address] [address] XRay Report Signed Patient: ARIADNA PANIAGUA MR#: [id number] : 1980 Acct:[id number] Age/Sex: 42 / F ADM Date: 09/28/23 Loc: RAD Attending Dr: SHARRON ROGERS Ordering Physician: SHARRON ROGERS Date of Service: 09/28/23 Procedure(s): XR lumbar spine min 4V Accession Number(s): [id number] cc: GAY DE LA TORRE ; SHARRON ROGERS [address] [address] Patient Name: ARIADNA PANIAGUA MRN: [id number] date: 1980 Sex: F Assigned Patient Location: [facility] Current Patient Location: Accession/Order Number: [id number] Exam Date: 09/28/2023 14:41 Report Date: 09/29/2023 07:22 At the request of: SHARRON ROGERS Procedure: XR lumbar spine min 4V EXAMINATION: XR thoracic spine 3V, XR lumbar [...] paraspinous abnormality is seen. OTHER: Negative. XR/XR lumbar spine min 4V IMPRESSION: Minimal dextrocurvature Minimal degenerative change most significant at L5-S1 Electronically authenticated by: AURORA SHAIKH Date: 09/29/2023 07:22 Dictated By: Aurora Shaikh M.D. Signed By: 09/29/23724 DD/ 1 TD/TT: Social Services Designee: Procedure Note Radiology, Radiologist, MD - 09/29/2023 [place] [address] XRay Report Signed Patient: ARIADNA PANIAGUA BMR#: [id number] : 1980Acct:[id number] Age/Sex: 42 / FADM Date: 09/28/23 Loc: [facility] Attending Dr: SHARRON ROGERS Ordering Physician: SHARRON ROGERS Date of Service: 09/28/23 Procedure(s): XR lumbar spine min 4V Accession Number(s): [id number] cc: GAY DE LA TORRE ; SHARRON ROGERS [place] [id number] Patient Name: ARIADNA PANIAGUA MRN: [id number] date: 1980 Sex: F Assigned Patient Location: [facility] Current Patient Location: Accession/Order Number: [id number] Exam Date: 09/28/2023 14:41 Report Date: 09/29/2023 07:22 At the request of: SHARRON ROGERS Procedure: XR lumbar spine min 4V EXAMINATION: XR thoracic spine 3V, XR lumbar [...] paraspinous abnormality is seen. OTHER: Negative. XR/XR lumbar spine min 4V IMPRESSION: Minimal dextrocurvature Minimal degenerative change most significant at L5-S1 Electronically authenticated by: AURORA SHAIKH Date: 09/29/2023 07:22 Dictated By: Aurora Shaikh M.D. Signed By:09/29/23724 DD/ 1 TD/TT: Social Services Designee: us Sharron Rogers NP [facility] Final Result documented in this encounter Visit Diagnoses Not on filedocumented in this encounter Care Teams Reclaimer Relationship Specialty Start Date End Date Charles Nicole MD [address] [place] [address] PCP - General Family Medicine 02/09/24 07/17/24 Gay De La Torre MD [address] [place] [address] Referring Physician Family Medicine 07/18/24 documented as of this encounter
--- OUTSIDE RECORDS SUMMARY | 2024-10-24 10:11 | XMS_ITS | Encounter Summary ---
Author Organization [facility] Address [address] [place] [address] Care Team Providers Care Continuous Dryout Operator Name Role Phone Manuel Klein MD Unavailable [phone] Manuel Klein MD Primary Care Provider [phone] Manuel Klein MD Unavailable [phone] Source Comments In the event this information is protected by the Federal Confidentiality of Alcohol and Drug AbusePatient Records regulations: The Federal rules restrict any use of the information to criminally investigate or prosecute any alcohol or drug abuse patient.[facility] Encounter Details Date Type Department Care Team (Late st Contact Info) Description 07/09/2022 [address] [facility] [address] [place] [address] Christie Phan MD [address] [place] [address] Appointment Follow-UP Social History Tobacco Use Types Packs/Day Years Used Date Smoking Tobacco: Every Day Cigarettes 1 20 Smokeless Tobacco: Never Alcohol Use Standard Drinks/Week Comments No 0 (1 standard drink = 0.6 oz pur e alcohol) PHQ-2 Answer Date Recorded PHQ-2 score 0 04/12/2022 Area Deprivation Index Answer Date Ocnstantino rded National Score (1-100), lower number is lower ri sk Not on file 08/09/2020 State Score (1-10), lower number is lower risk N ot on file 08/09/2020 Data from: https://www.neighborhoodatlas.medicine.[facility]/. Last address used for calculation [...] Info) Description 11/01/2024 9:00 AM EDT [facility] Hematology/Oncology [address] [place] [address] IVIG q 4 weeks with B 12 inj and lab 11/29/2024 8:45 AM EDT Office Visit [facility] [address] [place] [address] [place] [address] 3 mo F/U-IVIG(slow infusion per pt request/B12 +/-IV iron lab 11/29/2024 9:00 AM EDT Visit (SP) Office Hematology/Oncology [address] [place] [address] Fara Lopez APRN.PHOTOGRAPHY PROFESSOR [address] [place] [address] 3 mo F/U-IVIG(slow infusion per pt request/B12 +/-IV iron lab 11/29/2024 9:30 AM EDT Infusion Center Hematology/Oncology [address] [place] [address] 3 mo F/U-IVIG(slow infusion per pt request/B12 +/-IV iron lab documented as of this encounter Visit Diagnoses Not on filedocumented in this encounter Care Teams Continuous Dryout Operator Relationship Specialty Start Date End Date Manuel Klein MD PCP - General Family Medicine 02/27/22 Manuel Klein MD Referring Family Medicine 02/12/22 Manule Klein MD [address] [place] [address] Referring Family Medicine 07/06/24 documented as of this encounter
--- OUTSIDE RECORDS SUMMARY | 2024-10-24 10:11 | XMS_ITS | Encounter Summary ---
Author Organization [facility] Address [address] [place] [address] Care Team Providers Care Anatomy Professor Name Role Phone Aime Davidson MD, Lui Nunez Primary Care Provid er Gay De La Torre(Historical) TRUST AND ESTATES ATTORNEY.BURLAP WORKER Primary Care Provider Unavailable Manuel Klein MD Unavailable [phone] Manuel Klein MD Primary Care Provider [phone] Manuel Klein MD Unavailable [phone] Source Comments In the event this information is protected by the Federal Confidentiality of Alcohol and Drug AbusePatient Records regulations: The Federal rules restrict any use of the information to criminally investigate or prosecute any alcohol or drug abuse patient.[facility] Encounter Details Date Type Department Care Team (Late st Contact Info) Description 12/31/2014 Patient Msg Medical Records [address] [place] [address] Provider, [facility]cf Prescription Social History Tobacco Use Types Packs/Day Years [...] 11/01/2024 9:00 AM EDT Infusion Center Hematology/Oncology [address] [place], [place] [address] [address] IVIG q 4 weeks with B 12 inj and lab 11/29/2024 8:45 AM EDT Office Visit [facility] [place] [address] 3 mo F/U-IVIG(slow infusion per pt request/B12 +/-IV iron lab 11/29/2024 9:00 AM EDT Visit (SP) Office Hematology/Oncology [facility] [place] [address] Fara Lopez APRN.BURLAP WORKER [address] [place] [address] 3 mo F/U-IVIG(slow infusion per pt request/B12 +/-IV iron lab 11/29/2024 9:30 AM EDT Infusion Center Hematology/Oncology [address] [place] [address] [place] [address] 3 mo F/U-IVIG(slow infusion per pt request/B12 +/-IV iron lab documented as of this encounter Visit Diagnoses Not on filedocumented in this encounter Care Teams Anatomy Professor Relationship Specialty Start Date End Date Lui Salomon Jr., MD PCP - General Internal Medicine 05/31/14 07/08/20 Gay De La Torre(Historical), TRUST AND ESTATES ATTORNEY.BURLAP WORKER PCP - General Family Medicine 10/24/21 02/26/22 Manuel Klein MD PCP - General Family Medicine 02/27/22 Manuel Klein MD Referring Family Medicine 02/12/22 Manuel Klein MD [address] [place] [address] Referring Family Medicine 07/06/24 documented as of this encounter
--- OUTSIDE RECORDS SUMMARY | 2024-10-24 10:11 | XMS_ITS | Encounter Summary ---
Author Organization [facility] Address [address] [place] [address] Care Team Providers Care Creative Services Producer Name Role Phone Manuel Klein MD Unavailable [phone] Manuel Klein MD Primary Care Provider [phone] Manuel Klein MD Unavailable [phone] Source Comments In the event this information is protected by the Federal Confidentiality of Alcohol and Drug AbusePatient Records regulations: The Federal rules restrict any use of the information to criminally investigate or prosecute any alcohol or drug abuse patient.[facility] Encounter Details Date Type Department Care Team (Late st Contact Info) Description 07/09/2022 Get Medical Advice [facility] [address] [place] [address] Christie Phan MD [address] [place] [address] Cymbalta Social History Tobacco Use Types Packs/Day Years [...] N ot on file 08/09/2020 Data from: https://www.neighborhoodatlas.medicine.[facility]/. Last address used for calculation Not [...] Contact Info) Description 11/01/2024 9:00 AM EDT [facility] Hematology/Oncology [address] [place] [address] IVIG q 4 weeks with B 12 inj and lab 11/29/2024 8:45 AM EDT Office Visit [facility] [address] [place] [address] [place] [address] 3 mo F/U-IVIG(slow infusion per pt request/B12 +/-IV iron lab 11/29/2024 9:00 AM EDT Visit (SP) Office Hematology/Oncology [address] [place] [address] Fara Lopez APRN.FREIGHT BRAKEMAN [address] [place] [address] 3 mo F/U-IVIG(slow infusion per pt request/B12 +/-IV iron lab 11/29/2024 9:30 AM EDT Infusion Center Hematology/Oncology [address] [place] [address] 3 mo F/U-IVIG(slow infusion per pt request/B12 +/-IV iron lab documented as of this encounter Visit Diagnoses Not on filedocumented in this encounter Care Teams Creative Services Producer Relationship Specialty Start Date End Date Manuel Klein MD PCP - General Family Medicine 02/27/22 Manuel Klein MD Referring Family Medicine 02/12/22 Manuel Klein MD [address] [place] [address] Referring Family Medicine 07/06/24 documented as of this encounter
--- OUTSIDE RECORDS SUMMARY | 2024-10-24 10:11 | XMS_ITS | Encounter Summary ---
Author Organization [facility] Address [address] [place] [address] Phone Care Team Providers Care Certified Phlebotomist Name Role Phone MitaliMichelle MAGNETIZER-STRAINER CLEANER Unavailable [phone] Kenneth Patel MD Unavailable [phone] Gay De La Torre MAGNETIZER-STRAINER CLEANER Primary Care Provider Encounter Details Date Type Department Care Team (Late st Contact Info) Description 12/11/2023 Scanned Document [facility] [address] [place] [id number] Scanning, Generic Provider Social History Tobacco Use Types Packs/Day Years Used Date Smoking Tobacco: Every Day Cigarettes Smokeless Tobacco: Never Alcohol Use Standard Drinks/Week Comments Never 0 (1 standard drink = 0.6 oz pur e alcohol) Comments Unknown Sex and Gender Information Value Date Recorded Sex Assigned at Not on file Legal Sex Female 9:42 PM EST Gender Identity Female 02/21/2024 7:13 PM EDT Sexual Orientation Not on file documented as of this encounter Plan of Treatment Upcoming Encounters Date Type Department Care Team (Late st Contact Info) Description 07/26/2025 11:00 AM EST Office Visit [facility] [address] [facility] [address] [place] [address] Lois Arguelles MD [address] [place] [address] documented as of this encounter Procedures Procedure Name Priority Date/Time Associated Diagnosis Comments OUTSIDE IMAGING SCAN 12/11/2023 documented in this encounter Results * OUTSIDE IMAGING SCAN (12/11/2023) Anatomical Region Laterality Modality Other Narrative 12/11/2023 Ordered by an unspecified provider. us Generic Provider Scanning OUTSIDE SCAN Final Result documented in this encounter Visit Diagnoses Not on filedocumented in this encounter Additional Health Concerns Assessment Noted Time A fall risk assessment has been complete d for the patient 07/13/2023 9:40 AM EST documented as of this encounter Care Teams Certified Phlebotomist Relationship Specialty Start Date End Date Gay De La Torre, MAGNETIZER-STRAINER CLEANER [address] [place] [address] PCP - General 07/13/23 Michelle Jasmine APRN-STRAINER CLEANER Nurse Practitioner Cardiology 06/08/23 Kenneth Patel MD Consulting Physician Cardiology 06/23/23 documented as of this encounter
--- OUTSIDE RECORDS SUMMARY | 2024-10-24 10:11 | XMS_ITS | Encounter Summary ---
Author Organization [facility] Address [address] [place] [address] Care Team Providers Care Clipper Operator Name Role Phone Manuel Klein MD Unavailable [phone] Manuel Klein MD Primary Care Provider +-4 Manuel Klein MD Unavailable [phone] Source Comments In the event this information is protected by the Federal Confidentiality of Alcohol and Drug AbusePatient Records regulations: The Federal rules restrict any use of the information to criminally investigate or prosecute any alcohol or drug abuse patient.[facility] Encounter Details Date Type Department Care Team (Late st Contact Info) Description 06/10/2022 Patient Msg Hematology/Oncology [address] [place] [address] Cele Marshall Nurse Dre [address] [place] [address] Appointment Cancellation Request Social History Tobacco Use [...] N ot on file 08/09/2020 Data from: https://www.neighborhoodatlas.medicine.[facility]/. Last address used for calculation [...] Contact Info) Description 11/01/2024 9:00 AM EDT [facility] Hematology/Oncology [address] [place] [address] [place] [address] IVIG q 4 weeks with B 12 inj and lab 11/29/2024 8:45 AM EDT Office Visit [facility] Laboratory [address] [place] [address] [place] [address] 3 mo F/U-IVIG(slow infusion per pt request/B12 +/-IV iron lab 11/29/2024 9:00 AM EDT Visit (SP) Office Hematology/Oncology [address] [place] [address] Fara Lopez APRN.ORDER BUILDER LOADER [address] [place] [address] 3 mo F/U-IVIG(slow infusion per pt request/B12 +/-IV iron lab 11/29/2024 9:30 AM EDT Infusion Center Hematology/Oncology [address] [place] [address] 3 mo F/U-IVIG(slow infusion per pt request/B12 +/-IV iron lab documented as of this encounter Visit Diagnoses Not on filedocumented in this encounter Care Teams Clipper Operator Relationship Specialty Start Date End Date Manuel Klein MD PCP - General Family Medicine 02/27/22 Manuel Klein MD Referring Family Medicine 02/12/22 Manuel lKein MD [address] [place] [address] Referring Family Medicine 07/06/24 documented as of this encounter
--- OUTSIDE RECORDS SUMMARY | 2024-10-24 10:11 | XMS_ITS | Encounter Summary ---
Author Organization [facility] Address [address] [place] [address] Care Team Providers Care Science Teacher Name Role Phone Manuel Klein MD Unavailable [phone] Manuel Klein MD Primary Care Provider +-4 Manuel Klein MD Unavailable [phone] Source Comments In the event this information is protected by the Federal Confidentiality of Alcohol and Drug AbusePatient Records regulations: The Federal rules restrict any use of the information to criminally investigate or prosecute any alcohol or drug abuse patient.[facility] Encounter Details Date Type Department Care Team (Late st Contact Info) Description 05/11/2023 Get Medical Advice Rheumatology [address] [place], [place] [id number] Sandra Park MD [address] [place] [address] Flair Social History Tobacco Use Types Packs/Day Years [...] is lower risk 4 09/24/2022 Data from: https://www.neighborhoodatlas.medicine.[facility]/. Last address used for calculation [address] 09/24/2022 Comments No Sex and Gender [...] Telephone Encounter - Sandra Park MD - 05/12/2023 9:00 AM EST Please call patient. Thank you for the update. Sorry to hear about your discomfort. Medication refilled. Hope you feel better soon! Warm regards, :) Patient's request for medication is as follows: Requested Prescriptions Signed Prescriptions Disp Refills predniSONE (DELTASONE) 10 mg tablet 120 tablet 1 Sig: Take 40mg daily x 5days, then decrease 5mg every 5days until 10mg daily thereafter Prescription(s) as above. Please process accordingly. Sandra Park MD * Telephone Encounter - Beatriz Sanchez LPN - 05/11/2023 2:46 PM EST Most recent Rheumatology visit: 02/04/2023 (with Sandra Park) Recent Office Visits - This Specialty 02/04/2023 Other systemic lupus erythematosus with other organ involvement (HCC) Rheumatology Sandra Park MD 06/15/2022 Other systemic lupus erythematosus with other organ involvement (HCC) Rheumatology Sandra Park MD 10/24/2021 Other systemic lupus erythematosus with other organ involvement (HCC) Rheumatology Sandra Park MD Upcoming Rheumatology Appointments - Next 365 Days Visit Type Date Time Department VIDEO SPEC EST 08/12/2023 9:00 AM [facility] Last Ophthalmology Check for Plaquenil (Hydroxychloroquine) Last OCT Macula Exam No resulted procedures found. Last Visual Field Exam No resulted procedures found. CBC: CBC Latest Ref Rng & Units 02/11/2023 04/09/2023 WBC 3.70 - 11.00 k/uL 10.21 10.04 HEMOGLOBIN 11.5 - 15.5 g/dL 13.2 13.1 HEMATOCRIT 36.0 - 46.0 % 41.0 41.1 PLATELETS 150 - 400 k/uL 258 290 ABS NEUT (ANC) 1.45 - 7.50 k/uL 6.99 6.41 ABS LYMPH 1.00 - 4.00 k/uL 2.29 2.90 Vitamin D: Vitamin D Latest Ref Rng & Units 10/15/2022 01/22/2023 VITAMIN D 25 HYDROXY 31.0 - 80.0 ng/mL 28.3(L) 25.1(L) LFT: CMP Latest Ref Rng & Units 02/11/2023 04/09/2023 SODIUM 136 - 144 mmol/L 141 144 POTASSIUM 3.7 - 5.1 mmol/L 4.0 3.7 CHLORIDE 97 - 105 mmol/L 107(H) 106(H) CO2 22 - 30 mmol/L 23 26 GLUCOSE 74 - 99 mg/dL 164(H) 120(H) BUN 7 - 21 mg/dL 15 24(H) CREATININE 0.58 - 0.96 mg/dL 0.76 0.89 CALCIUM, TOTAL 8.5 - 10.2 mg/dL 9.7 9.4 AST 13 - 35 U/L 11(L) 11(L) ALT 7 - 38 U/L 21 17 ALKALINE PHOSPHATASE 34 - 123 U/L 75 74 Hepatic Function: Creatinine: Creatinine Latest Ref Rng & Units 02/11/2023 04/09/2023 CREAT 0.58 - 0.96 mg/dL 0.76 0.89 ESR/CRP: ESR, WSR Latest Ref Rng & [...] PANEL [SQCMP] 04/25/23 01/25/24 01/24/23 Auth. provider: Sandra Park MD Assoc. diagnoses: Elevated LFTs CBC [SQCBC] 04/25/23 01/25/24 01/24/23 Auth. provider: Sandra Park MD Assoc. diagnoses: Anemia of chronic disease SED RATE WESTERGREN [SQWSR] 04/25/23 01/25/24 01/24/23 Auth. provider: Sandra Park MD Assoc. diagnoses: Elevated sed rate, Elevated C-reactive protein (CRP) C-REACTIVE PROTEIN (CRP) [SQCRP] 04/25/23 01/25/24 01/24/23 Auth. provider: Sandra Park MD Assoc. diagnoses: Elevated sed rate, Elevated C-reactive protein (CRP) VITAMIN D 25 HYDROXY [SQVITD] 04/25/23 01/25/24 01/24/23 Auth. provider: Sandra Park MD Assoc. diagnoses: Vitamin D deficiency documented in this encounter Plan of Treatment Upcoming Encounters Date Type Department Care Team (Latest Contact Info) Description 11/01/2024 9:00 AM EDT Infusion Center Hematology/Oncology [address] [place] [address] [place] [address] IVIG q 4 weeks with B 12 inj and lab 11/29/2024 8:45 AM EDT Office Visit [facility] Laboratory [address] [place] [address] 3 mo F/U-IVIG(slow infusion per pt request/B12 +/-IV iron lab 11/29/2024 9:00 AM EDT Visit (SP) Office Hematology/Oncology [address] [place] [address] [place] [address] Fara Lopez APRN.CHEF TEACHER [address] [place] [address] 3 mo F/U-IVIG(slow infusion per pt request/B12 +/-IV iron lab 11/29/2024 9:30 AM EDT Infusion Center Hematology/Oncology [address] [place] [address] [place] [address] 3 mo F/U-IVIG(slow infusion per pt request/B12 +/-IV iron lab documented as of this encounter Visit Diagnoses Diagnosis Other systemic lupus erythematosus with other organ involvement (HCC) documented in this encounter Care Teams Science Teacher Relationship Specialty Start Date End Date Manuel Klein MD PCP - General Family Medicine 02/27/22 Manuel Klein MD Referring Family Medicine 02/12/22 Manuel Klein MD [address] [place] [address] Referring Family Medicine 07/06/24 documented as of this encounter
--- OUTSIDE RECORDS SUMMARY | 2024-10-24 10:11 | XMS_ITS | Encounter Summary ---
Author Organization [facility] Address [address] [facility] [place] [address] Care Team Providers Care Coroner'S Juror Name Role Phone House, Charles Culver MD Primary Care Provider [phone] Gay De La Torre MD Unavailable [phone] Encounter Details Date Type Department Care Team (Late st Contact Info) Description 11/18/2023 Clinisync Result Encounter [facility] External Department Unsolicited Katy Valdivia, DO [address] [facility] [place] [place], [place] [id number] Social History Tobacco Use Types Packs/Day Years Used Date Smoking Tobacco: Every Day Cigarettes 1 29.4 Started: 05/24/1995 Smokeless Tobacco: Never Comments:Current smoker, carlos ryday, 11-20 cigarettes/day Alcohol Use Standard Drinks/Week Comments [...] [facility] [place] [address] [place] [address] Mary Grace Mejias MD [address] [place] [address] 07/25/2025 11:00 AM EST Office Visit [facility] [address] [facility] [address] [place] [address] Cynthia English MD [address] [place] [address] documented as of this encounter Procedures Procedure Name Priority Date/Time Associated Diagnosis Comments US PELVIS W/ TRANSVAGINAL 2023 4:39 PM EDT [facility] PROLACTIN Routine 11/18/2023 3:04 PM EDT ALL LUTEINIZING HORMONE Routine 11/18/19 3:04 PM EDT ALL FOLLICLE STIMULATING HORMONE Routine 11/18/2023 3:04 PM EDT ALL DHEA SULFATE Routine 11/18/2023 3:04 PM EDT ALL DEHYDROEPIANDROSTERONE Routine 11/17 3:04 PM EDT documented in this encounter Results * US PELVIS W/ TRANSVAGINAL (11/18/2023 4:39 PM EDT) Anatomical Region Laterality Modality Other 11/18/2023 4:39 PM EDT Narrative 11/18/2023 4:42 PM EDT The [address] [address] Ultrasound Report Signed Patient: JONES PANIAGUA MR#: [id number] : 1980 Acct:[id number] Age/Sex: 43 / F ADM Date: 11/18/23 Loc: US Attending Dr: Katy Valdivia D.O. Ordering Physician: Katy Valdivia D.O. Date of Service: 11/18/23 Procedure(s): US pelvis w/ transvaginal Accession Number(s): [id number] cc: GAY DE LA TORRE ; Katy Valdivia D.O. [address] [address] Patient Name: JONES PANIAGUA MRN: [facility]:[id number] date: 1980 Sex: F Assigned Patient Location: US Current Patient Location: US Accession/Order Number: [id number] Exam Date: 11/18/2023 14:00 Report Date: 11/18/2023 16:39 At the request of: KATY VALDIVIA Procedure: US pelvis w/ transvaginal EXAMINATION: [...] Shaikh M.D. Signed By: 11/18/23 1642 DD/ 1639 TD/TT: Environmental Tech: Procedure Note Radiology, Radiologist, MD - 11/18/2023 [place] [address] Ultrasound Report Signed Patient: JONES PANIAGUA R#: [id number] : 1980Acct:[id number] Age/Sex: 43 / FADM Date: 11/18/23 Loc: US Attending Dr: Katy Valdivia D.O. Ordering Physician: Katy Valdivia D.O. Date of Service: 11/18/23 Procedure(s): US pelvis w/ transvaginal Accession Number(s): [id number] cc: GAY DE LA TORRE ; Katy Valdivia D.O. The [place] [id number] Patient Name: JONES PANIAGUA MRN: [id number] date: 1980 Sex: F Assigned Patient Location: US Current Patient Location: US Accession/Order Number: [id number] Exam Date: 11/18/2023 14:00 Report Date: 11/18/2023 16:39 At the request of: KATY VALDIVIA Procedure: US pelvis w/ transvaginal EXAMINATION: [...] 3.1 x 1.8 x 1.9 cm. Normal colorDoppler flow The left ovary is normal measuring 2.8 x 2.7 x 2.0 cm. Normal colorDoppler flow No ascites US/US pelvis w/ transvaginal IMPRESSION: 2 cm posterior myometrial mass, a fibroid is favored Electronically authenticated by: AURORA SHAIKH Date: 11/18/2023 16:39 Dictated By: Aurora Shaikh M.D. Signed By:11/18/23 1642 DD/ 1639 TD/TT: Environmental Tech: us Katy Valdivia DO [facility] Final Result * (ABNORMAL) ALL DEHYDROEPIANDROSTERONE (11/18/2023 3:04 PM EDT) DHEA, SERUM 25(A) 31 - 701 ng/dL [facility] Comment: This test was developed and its performance characteristics determined by [facility]. It has not been cleared or approved by the Food and Drug Administration. Performed at: [address] [id number] Gaming Commissioner: Senait Hardin MD, Phone: [phone] 11/18/2023 3:04 PM EDT 11/18/2023 3:14 PM EDT Narrative [facility] - 11/23/2023 12:10 PM EDT [facility] Skip DO [facility] Final Result Performing Organization Address [facility] de Phone Number [facility] * (ABNORMAL) [facility] PROLACTIN (11/18/2023 3:04 PM EDT) PROLACTIN 4.7(A) 4.8 - 33.4 ng/mL [facility] Comment: Performed at: [facility] Lab[address] [id number] Gaming Commissioner: Doyle Mendenhall PhD, Phone: [phone] 11/18/2023 3:04 PM EDT 11/18/2023 3:14 PM EDT Narrative [facility] - 11/19/2023 4:07 AM EDT [facility] Final Result Performing Organization Address [facility] de Phone Number [facility] * ALL FOLLICLE STIMULATING HORMONE (11/18/2023 3:04 PM EDT) FSH 13.0 . mIU/mL [facility] Comment: Adult Female Range Follicular phase 3.5 - 12.5 Ovulation phase 4.7 - 21.5 Luteal phase 1.7 - 7.7 Postmenopausal 25.8 - 134.8 11/18/2023 3:04 PM EDT 11/18/2023 3:14 PM EDT Narrative CLINIS[facility]NC - 11/19/2023 4:07 AM EDT [facility] Final Result Performing Organization Address [facility] Co de Phone Number [facility] * ALL LUTEINIZING HORMONE (11/18/2023 3:04 PM EDT) LUTEINIZING HORMONE(LH) 24.9 . mIU/mL [facility] Comment: Adult Female Range Follicular phase 2.4 - 12.6 Ovulation phase 14.0 - 95.6 Luteal phase 1.0 - 11.4 Postmenopausal 7.7 - 58.5 11/18/2023 3:04 PM EDT 11/18/2023 3:14 PM EDT Narrative [facility] - 11/19/2023 4:07 AM EDT us Katy Skip DO CLIN[facility] Final Result [facility] TB * (ABNORMAL) ALL DHEA SULFATE (11/18/2023 3:04 PM EDT) DHEA-SULFATE 15.4(A) 57.3 - 279.2 ug/dL [facility] 11/18/2023 3:04 PM EDT 11/18/2023 3:14 PM EDT Narrative [facility] - 11/19/2023 4:07 AM EDT us Katy Skip DO CLIN[facility] Final Result [facility] TB documented in this encounter Visit Diagnoses Not on filedocumented in this encounter Care Teams Coroner'S Juror Relationship Specialty Start Date End Date Charles Nicole MD [address] [place] [address] PCP - General Family Medicine 02/09/24 07/17/24 Gay De La Torre MD [address] [place] [address] Referring Physician Family Medicine 07/18/24 documented as of this encounter
--- OUTSIDE RECORDS SUMMARY | 2024-10-24 10:11 | XMS_ITS | Encounter Summary ---
Author Organization [facility] Address [address] [place] [address] Care Team Providers Care Pet Stylist Name Role Phone Manuel Klein MD Unavailable [phone] Manuel Klein MD Primary Care Provider +-4 Manuel Klein MD Unavailable [phone] Source Comments In the event this information is protected by the Federal Confidentiality of Alcohol and Drug AbusePatient Records regulations: The Federal rules restrict any use of the information to criminally investigate or prosecute any alcohol or drug abuse patient.[facility] Encounter Details Date Type Department Care Team (Late st Contact Info) Description 09/07/2022 Patient Msg Integrative and Lifestyle Medicine [address] [place] [address] Provider, Ccf Video Visit Social History Tobacco Use Types Packs/Day Years [...] N ot on file 08/09/2020 Data from: https://www.neighborhoodatlas.medicine.[facility]/. Last address used for calculation [...] 9:00 AM EDT Infusion Center Hematology/Oncology [address] [facility] [place] [address] IVIG q 4 weeks with B 12 inj and lab 11/29/2024 8:45 AM EDT Office Visit [facility] [address] [place] [address] 3 mo F/U-IVIG(slow infusion per pt request/B12 +/-IV iron lab 11/29/2024 9:00 AM EDT Visit (SP) Office Hematology/Oncology [address] [facility] [address] [place] [address] Fara Lopez APRN.CONTRACT IMPLEMENTATION ANALYST [address] [facility] [facility] [address] [place] [address] 3 mo F/U-IVIG(slow infusion per pt request/B12 +/-IV iron lab 11/29/2024 9:30 AM EDT Infusion Center Hematology/Oncology [address] [facility] [place] [address] 3 mo F/U-IVIG(slow infusion per pt request/B12 +/-IV iron lab documented as of this encounter Visit Diagnoses Not on filedocumented in this encounter Care Teams Pet Stylist Relationship Specialty Start Date End Date Manuel Klein MD PCP - General Family Medicine 02/27/22 Manuel Klein MD Referring Family Medicine 02/12/22 Manuel Klein MD [address] [place] [address] Referring Family Medicine 07/06/24 documented as of this encounter
--- OUTSIDE RECORDS SUMMARY | 2024-10-24 10:11 | XMS_ITS | Encounter Summary ---
Author Organization [facility] Address [id number] [address] [place] [address] Care Team Providers Care Ruby Software Developer Name Role Phone Unavailable Primary Care Provider Unavailabl e Encounter Details Date Type Department Care Team (Late st Contact Info) Description 04/05/2024 Orders Only [facility] [address] [place] [address] Ref Prov, [place] [address] Social History Tobacco Use Types Packs/Day Years Used Date Smoking Tobacco: Never Assessed Childcare Answer Date Recorded Childcare Unknown 11/02/2018 Employment Answer Date Recorded Employment Unknown 11/02/2018 Hunger Screening Answer Date Recorded Within the past 12 months we worried whether our food would run out before we got money to buy more. Never True 04/06/2024 Within the past 12 months th e food we bought just didn't last and we didn't have money to get more. Never True 04/06/2024 Comments Unknown Sex and Gender Information Value Date Recorded Sex Assigned at Not on file Legal Sex Female 3:06 PM EST Gender Identity Not on file Sexual Orientation Not on file documented as of this encounter Plan of Treatment Not on file documented as of this encounter Procedures Procedure Name Priority Date/Time Associated Diagnosis Comments EXTERNAL LAB ORDERS / RESULTS Routine 02/28/2024 9:52 AM EDT documented in this encounter Results * External Lab Orders / Results (02/28/2024 9:52 AM EDT) us Not In System Ref Prov LAB ORDERABLES Final Res ult MANUALLY TRANSCRIBED RESULTS documented in this encounter Visit Diagnoses Not on filedocumented in this encounter
--- OUTSIDE RECORDS SUMMARY | 2024-10-24 10:12 | XMS_ITS | Encounter Summary ---
Author Organization [facility] Address [address] [place] [address] Care Team Providers Care Service Associate Name Role Phone Manuel Klein MD Unavailable [phone] Manuel Klein MD Primary Care Provider +-4 Manuel Klein MD Unavailable [phone] Source Comments In the event this information is protected by the Federal Confidentiality of Alcohol and Drug AbusePatient Records regulations: The Federal rules restrict any use of the information to criminally investigate or prosecute any alcohol or drug abuse patient.[facility] Reason for Visit * Reason Comments Refill Request Encounter Details Date Type Department Care Team (Late st Contact Info) Description 04/26/2024 Refill Rheumatology [address] [place], [place] [id number] Sandra Park MD [address] [place] [address] Refill Request Social History Tobacco Use Types Packs/Day [...] is lower risk 4 09/24/2022 Data from: https://www.neighborhoodatlas.medicine.[facility]/. Last address used for calculation [address] 09/24/2022 Comments No Sex and Gender [...] [facility] Hematology/Oncology [address] [place] [address] IVIG q 4 weeks with B 12 inj and lab 11/29/2024 8:45 AM EDT Office Visit [facility] Laboratory [address] [place] [address] 3 mo F/U-IVIG(slow infusion per pt request/B12 +/-IV iron lab 11/29/2024 9:00 AM EDT Visit (SP) Office Hematology/Oncology [address] [place] [address] Fara Lopez APRN.FIELD CROP HARVEST CONTRACTOR [address] [place] [address] 3 mo F/U-IVIG(slow infusion per pt request/B12 +/-IV iron lab 11/29/2024 9:30 AM EDT Infusion Center Hematology/Oncology [address] [place] [address] 3 mo F/U-IVIG(slow infusion per pt request/B12 +/-IV iron lab documented as of this encounter Visit Diagnoses Diagnosis Other systemic lupus erythematosus with other organ involvement (HCC) documented in this encounter Care Teams Service Associate Relationship Specialty Start Date End Date Manuel Klein MD PCP - General Family Medicine 02/27/22 Manuel Klein MD Referring Family Medicine 02/12/22 Manuel Klein MD [address] [place] [address] Referring Family Medicine 07/06/24 documented as of this encounter
--- OUTSIDE RECORDS SUMMARY | 2024-10-24 10:12 | XMS_ITS | Clinical Summary ---
Author Organization [facility] Healthcare Address [address] [facility] [place] [address] Care Team Providers Care Oxygen Tank Filler Name Role Phone Gay De La Torre MD Unavailable [phone] Allergies Active Allergy Reactions Criticality Noted Date Comments Clindamycin Low 03/04/2022 Other Reaction(s): Unknown Patient states it was a long time ago and she did not have a severe reaction. She does not believe she is allergic, she just thinks she just experienced side effects. Other Reaction(s): Unknown Reaction Codeine 05/31/2014 Other Reaction(s): Other: See Comments, Trouble breathing ... Make her feel Jittery. OTHERWISE, NO SOB/WHEEZING, and NO DYSPHAGIA, NO URTICARIA, NO ANGIOEDEMA Doxycycline Unknown 10/07/2022 Latex Rash Low 05/31/2014 Other Reaction(s): Rash Patient states it was a long time ago and she did not have a severe reaction. She does not believe she is allergic, she just thinks she just experienced side effects. Sulfamethoxazole 10/07/2022 Other Reaction(s): gi Other Reaction(s): lymph swelling Sulfamethoxazole-Trimethoprim Swelling Low 2015 Other Reaction(s): Other, sick Patient states it was a long time ago and she did not have a severe reaction. She does not believe she is allergic, she just thinks she just experienced side effects. Trimethoprim 10/07/2022 Other Reaction(s): gi Other Reaction(s): lymph swelling Medications Triamcinolone Acetonide 0.025 % lotion 1 application 06/23/19 23 Active ibuprofen 200 MG tablet every 8 (eight) hours Active hydroxychloroquin e (Plaquenil) 400 MG tablet 1 (one) time each day at the same time Active acetaminophen (Tylenol) 325 MG tablet every 4 (four) hours Active nystatin (Mycostatin) creamIndications: Candidiasis of skin Apply to left armpit BID until clear 15 g 01/16/20 23 Active metoprolol tartrate (Lopressor) 50 MG tablet Take 100 mg by mouth in the morning and 100 mg before bedtime. 04/23/20 23 Active azaTHIOprine (Imuran) 50 MG tablet Take 150 mg by mouth Daily 05/24/19 24 Active folic acid (Folvite) 1 MG tablet Take 1 mg by mouth in the morning. 01/16/20 23 Active ergocalciferol (Vitamin D2) 1.25 MG (29977 UT) capsule Take 50,000 Units by mouth 1 (one) time per week Active aspirin 81 MG chewable tablet Chew 81 mg Daily Active belimumab (Benlysta) 200 MG/ML injection Inject 200 mg under the skin 1 (one) time per week 02/05/20 23 Active predniSONE 10 MG (21) tablet therapy pack Take 10 mg by mouth 1 (one) time each day at the same time Active tretinoin (Retin-A) 0.05 % creamIndications: Striae atrophic Apply to face, once daily at evening/night time, 30 day supply 20 g 11 07/15/19 24 Active fluticasone (Flonase) 50 MCG/ACT nasal sprayIndications: Eustachian tube dysfunction, bilateral,Non-rec urrent acute serous otitis media of both ears Administer 2 sprays into each nostril in the morning and 2 sprays before bedtime. Shake gently. Before first use, prime pump. After use, clean tip and replace cap.. 16 g 12 12/04/19 24 Active thiamine (Vitamin B-1) 100 MG tabletIndications :Autoimmune disease (CMS/HCC),Fibromy algia,Numbness Take 1 tablet (100 mg) by mouth in the morning. 90 tablet 3 02/07/20 24 025 Active diclofenac sodium 1 % gel 02/01/20 24 Active baclofen (Lioresal) 5 MG tabletIndications :Lumbosacral radiculopathy at L5,Degenerative disc disease, lumbar,Cervical radiculopathy at C5 TAKE 1 TABLET BY MOUTH IN THE MORNING, EVENING AND BEFORE BEDTIME 270 tablet 1 03/02/20 24 Active norethindrone-eth inyl estradiol-iron (Lo Loestrin Fe) 1 MG-10 MCG / 10 MCG tabletIndications :Menorrhagia with regular cycle Take 1 tablet by mouth Daily Take 1 tablet by mouth daily 28 tablet 03/23/20 24 025 Active pantoprazole (ProtoNix) 20 MG EC tablet Take 20 mg by mouth in the morning. Take before meals. Do not crush, chew, or split. Active clindamycin (Cleocin T) 1 % lotionIndications :Hidradenitis suppurativa Apply thin later to affected areas on the thighs, once daily, 30 day supply 60 mL 07/26/19 25 Active Chlorhexidine Gluconate (Hibiclens) 4 % solutionIndicatio ns:Hidradenitis suppurativa Use every day in shower from the neck down to affected areas. 532 mL 07/26/19 25 Active Clobetasol Propionate 0.05 % shampooIndication s:Other seborrheic dermatitis 1 application to the scalp in the shower topically 3-4 times a week 236 mL 07/26/19 25 Active fluocinonide (Lidex) 0.05 % external solutionIndicatio ns:Other seborrheic dermatitis Apply to affected areas on the scalp, up to twice a day when flared, 30 day supply 60 mL 07/26/19 25 Active tacrolimus (Protopic) 0.1 % ointmentIndicatio ns:Lupus erythematosus tumidus (CMS/HCC) Apply to affected area on forehead bid prn flares, hold if clear 30 g 07/26/19 25 Active KlonoPIN 0.5 MG tablet 1 tablet Orally Once a day prn for 30 days 09/02/19 25 Active Trulicity 1.5 MG/0.5ML solution auto-injector INJECT SUBCUTANEOUSLY ONCE A WEEK DIRECTED 08/18/19 25 Active immune globulin, human, (Gammagard) infusion Infuse into a venous catheter Active Active Problems Problem Noted Date Diagnosed Date Lupus erythematosus 04/06/2024 Sacroiliitis 04/06/2024 Frequent infections 04/01/2024 Hypogammaglobulinemia 04/01/2024 C. difficile diarrhea 03/07/2024 Diarrhea 03/07/2024 Duct ectasia of breast 03/07/2024 GERD (gastroesophageal reflux disease) Insulin resistance 03/07/2024 Facet arthritis of lumbar region 12/15/2023 Nipple discharge 11/15/2023 Irregular periods/menstrual cycles 11/15/2023 Degenerative disc disease, lumbar 11/08/2023 Paresthesias 11/08/2023 History of vitamin D deficiency 10/05/2023 Prediabetes 08/24/2023 Pure hypercholesterolemia, unspecified Hoarse 08/10/2023 Thyroid nodule 08/10/2023 Shortness of breath 07/13/2023 Paroxysmal supraventricular tachycardia 07/13/19 PAC (premature atrial contraction) 07/13/2023 Cervical radiculopathy 07/06/2023 Lumbosacral radiculopathy at L5 07/06/2023 Chronic laryngopharyngitis 07/06/2023 Current smoker 07/06/2023 Overview (07/06/2023): Added secondary to documentation in Social History. 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 02/04 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 02/04/2023 Excessive and frequent menstruation with irregul [...] both feet 03/05/2021 Elevated sed rate 03/05/2021 High total serum IgM 03/05/2021 Family history of Crohn's disease 03/05/2021 Hair loss 03/05/2021 Long-term use of Plaquenil 03/05/2021 Rash and nonspecific skin eruption 03/05/2021 Secondary osteoarthritis of multiple sites 03/05 Swelling of lymph nodes 03/05/2021 Ataxia 05/31/2014 Hyperlipidemia 05/31/2014 Vitamin B12 deficiency 05/31/2014 Encounters Date Type Department Care Team Description 09/04/2024 3:20 PM EDT [facility] [address] [place] [id number] Mary Grace Mejias MD Thyroid nodule (CMS/HCC) (Primary Dx); LPRD (laryngopharyngeal reflux disease) 09/04/2024 Bamboo flowsheet [facility] [address] [place] [address] Mary Grace Mejias MD 09/04/2024 Travel 08/24/2024 Telephone [facility] [address] [place] [address] Na Delacruz MA 08/24/2024 Clinisync Result Encounter [facility] External Department Unsolicited Mary Grace Mejias MD 08/09/2024 Telephone [facility] [address] [place] [address] Rochelle Hurd MA Care Coordination 07/25/2024 1:30 PM EST Office Visit [facility] [address] [place] [address] Cynthia English MD Hidradenitis suppurativa (Primary Dx); Other seborrheic dermatitis; Lupus erythematosus tumidus (CMS/HCC) ; Rash and other nonspecific skin eruption; Capillary angioma; Neoplasm of uncertain behavior of skin 07/25/2024 Bamboo flowsheet [facility] [address] [place] [address] Cynthia English MD 07/25/2024 Travel from Last 3 Months Family History Medical History Relation Name Comments lung issue Child 1 son with lung issue, 3 daughters No Known Problems Daughter 1 Cancer Father Micheal Pancreatitis Father Micheal Stomach cancer Father Micheal Diabetes Maternal Grandmother Clesandhya Heart failure Maternal Grandmother Clelagiovany Rheum arthritis Maternal Grandmother Clesandhya Crohn's disease Mother Nieves Thyroid disease Mother [place] No Known Problems Sister 1 Lung disease Son Relation Name Status Comments Child Alive Daughter 1 Alive 3 daughters Daughter 2 Alive Daughter 3 Alive Father Micheal Maternal Grandmother Clesandhya Mother Nieves Alive Mother's Sister Sister Alive 1 sister Son Alive 1 son Social History Tobacco Use Types Packs/Day Years Used Date Smoking Tobacco: Every Day Cigarettes 1 29.4 Started: 05/24/1995 Smokeless Tobacco: Never Tobacco Cessation:Ready to Q uit: Yes; Counseling Given: Yes Comments:Current smoker, everyday, 11-20 cigarettes/day Alcohol Use Standard Drinks/Week Comments Never 0 (1 standard drink = 0.6 oz pure alcohol) Caffeine intake : > 4 cups per day Comments No Sex and Gender Information Value Date Recorded Sex Assigned at Not on file Legal Sex Female 7:18 PM EDT Gender Identity Not on file Sexual Orientation Not on file Last Filed Vital Signs Vital Sign Reading Time Taken Comments Blood Pressure 112/73 09/04/2024 3:04 PM EDT Pulse 101 09/04/2024 3:04 PM EDT Temperature 37.1 C (98.7 F) 04/02/2024 1:27 PM EST Respiratory Rate 18 08/24/2023 8:22 AM EDT Oxygen Saturation 99% 04/02/2024 1:27 PM EST Inhaled Oxygen Concentration - - Weight 128 kg (283 lb) 09/04/2024 3:04 PM EDT Height 170.2 cm (5' 7 ) 09/04/2024 3:04 PM EDT Body Mass Index 44.32 09/04/2024 3:04 PM EDT Plan of Treatment Upcoming Encounters Date Type Department Care Team (Late st Contact Info) Description 03/19/2025 10:20 AM EDT Office Visit [facility] [address] [place] [address] Mary Grace Mejias MD [address] [place] [address] 07/25/2025 11:00 AM EST Office Visit [facility] [address] [place] [address] Cynthia English MD [address] [place] [address] Health Maintenance Due Date Last Done Comments Influenza Vaccine (Season Ended) 2025 Mammogram 04/07/2025 04/07/2024 Pap Smear 06/06/2027 06/06/2024, 09/10/2022 Cervical Cancer Screening 09/11/2027 HPV/Cotest 09/11/2027 Procedures Procedure Name Priority Date/Time Associated Diagnosis Comments US THYROID 08/24/2024 9:22 AM EDT PAP SMEAR Routine 06/06/2024 12:00 AM EST MM TOMOSYNTHESIS DIAGNOSTIC BI 04/07/2024 8:40 AM EST from Last 3 Months or Most Recently Relevant to Health Maintenance Results * US thyroid (08/24/2024 9:22 AM EDT) Anatomical Region Laterality Modality Head, Neck Ultrasound 08/24/2024 9:22 AM EDT Narrative 08/24/2024 9:24 AM EDT The [address] [address] Ultrasound Report Signed Patient: JONES PANIAGUA MR#: [id number] : 1980 Acct:[id number] Age/Sex: 43 / F ADM Date: 08/24/24 Loc: US Attending Dr: Mary Grace Mejias M.D. Ordering Physician: Mary Grace Mejias M.D. Date of Service: 08/24/24 Procedure(s): US thyroid Accession Number(s): [id number] cc: GAY DE LA TORRE ; Mary Grace Mejias M.D. [place] [address] Patient Name: JONES PANIAGUA MRN: [facility]:[id number] date: 1980 Sex: F Assigned Patient Location: US Current Patient Location: US Accession/Order Number: [id number] Exam Date: 08/24/2024 09:09 Report Date: 08/24/2024 09:22 At the request of: MARY GRACE MEJIAS MD Procedure: US thyroid THYROID ULTRASOUND COMPARISON: [...] this was thought to be cystic. The furnace worker today considered it solid and it was given TI-RADS 4 classification. No internal color flow is shown. Size has not significantly changed when measuring in a comparable manner. No other nodularity is seen. US/US thyroid IMPRESSION: SIMILAR SMALL LEFT THYROID NODULE. FOLLOW-UP IN ONE YEAR IS SUGGESTED. Impression dictated by: Simin Nelson M.D.08/24/2024 9:22 AM Dictation Location: [place] [address] Electronically authenticated by: [id number] Y Date: 08/24/2024 09:22 Dictated By: Simin Nelson M.D. Signed By: 08/24/24923 DD/ 1 TD/TT: Foreclosure Clerk: Procedure Note Radiology, Radiologist, - 08/24/[address] [address] Ultrasound Report Signed Patient: JONES PANIAGUA BMR#: [id number] : 1980Acct:[id number] Age/Sex: 43 / FADM Date: 08/24/24 Loc: US Attending Dr: Mary Grace Mejias M.D. Ordering Physician: Mary Grace Mejias M.D. Date of Service: 08/24/24 Procedure(s): US thyroid Accession Number(s): [id number] cc: GAY DE LA TORRE ; Mary Grace Mejias M.D. The [place] [id number] Patient Name: JONES PANIAGUA MRN: [id number] date: 1980 Sex: F Assigned Patient Location: US Current Patient Location: US Accession/Order Number: [id number] Exam Date: 08/24/2024 09:09 Report Date: 08/24/2024 09:22 At the request of: MARY GRACE MEJIAS MD Procedure: US thyroid THYROID ULTRASOUND COMPARISON: CT neck 09/07/2023 and ultrasound 08/11/2023 CLINICAL DATA: Follow-up thyroid nodule The right thyroid lobe measures 5.3 x 1.8 x 2.7 cm. The left lobemeasures 4.1 x 1.4 x 1.9 cm. The isthmus measures 5 mm. Thyroid echotexture ismildly heterogeneous. At the inferior pole on the left, there is still ahypoechoic nodule with hyperechoic component measuring 11 x 8 x 6 mm. At the time ofthe prior this was thought to be cystic. The furnace worker today considered it solid and it was given TI-RADS 4 classification. No internal color flowis shown. Size has not significantly changed when measuring in a comparable manner. No other nodularity is seen. US/US thyroid IMPRESSION: SIMILAR SMALL LEFT THYROID NODULE. FOLLOW-UP IN ONE YEAR IS SUGGESTED. Impression dictated by: Simin Nelson M.D.08/24/2024 9:22 AM Dictation Location: [place] [address] Electronically authenticated by: [id number] Y Date: 509:22 Dictated By: Simin Nelson M.D. Signed By:08/24/24923 DD/ 1 TD/TT: Foreclosure Clerk: Mary Grace Mejias MD IMG US PROCEDURES Final Resul t * Pap Smear (06/06/2024 12:00 AM EST) Swab Cervical swab / Unknown [facility] ORDERABLES Final Re sult EXTERNAL LAB * MM TOMOSYNTHESIS DIAGNOSTIC BI (04/07/2024 8:40 AM EST) Anatomical Region Laterality Modality Other 04/07/2024 8:40 AM EST Narrative 04/07/2024 8:41 [place] [address] Mammography Report Signed Patient: JONES PANIAGUA MR#: [id number] : 1980 Acct:[id number] Age/Sex: 43 / F ADM Date: 04/06/24 Loc: US Attending Dr: Luan Valdivia D.O. Ordering Physician: Luan Valdivia D.O. Results: Date of Service: 04/06/24 Follow Up: Procedure(s): MM tomosynthesis diagnostic BI Accession Number(s): [id number] cc: GAY DE LA TORRE ; Luna Valdivia D.O. Patient Name: JONES PANIAGUA MR#: [id number] : 1980 Exam Date: 04/06/2024 Ordering Doctor: [...] age 56. LOCATION: The [facility] BREAST COMPOSITION: There are scattered areas [...] PALPABLE LUMP SHOULD BE BIOPSIED. Dictated by: Vito Yusuf M.D. on 04/07/2024 at 08:29 Approved by: Vito Yusuf M.D. on 04/07/2024 at 08:40 Dictated By: Vito Yusuf M.D. Signed By: 04/07/24 0841 DD/ 0840 TD/TT: Foreclosure Clerk: Procedure Note Radiology, Radiologist, MD - 04/07/2024 [place] [address] Mammography Report Signed Patient: JONES PANIAGUA BMR#: [id number] : 1980Acct:[id number] Age/Sex: 43 / FADM Date: 04/06/24 Loc: US Attending Dr: Luan Valdivia D.O. Ordering Physician: Luan Valdivia D.O.Results: Date of Service: 04/06/24Follow Up: Procedure(s): MM tomosynthesis diagnostic BI Accession Number(s): [id number] cc: GAY DE LA TORRE ; Luan Valdivia D.O. Patient Name: JONES PANIAGUA MR#: [id number] : 1980 Exam Date: 04/06/2024 Ordering Doctor: DR Luan Valdivia . RADIOLOGY REPORT PROCEDURE: MM TOMOSYNTHESIS DIAGNOSTIC BI, 04/06/2024, 15:20 US BREAST BI LIMITED, 04/06/2024, 15:37 COMPARISON: MM TOMOSYNTHESIS SCREENING BI, 09/23/2023. MG MAMM [id number] MARK CAD, 09/01/2022. MG MAMM SCREEN 3D [...] age 56. LOCATION: The [facility] BREAST COMPOSITION: There are scattered areas of fibroglandulardensity. FINDINGS: DIAGNOSTIC CATEGORY 2--BENIGN FINDING: RIGHT BREAST: No significant suspicious finding. Scatteredbenign-appearing calcifications are present. Scattered benign-appearing lymph nodes are present. No significant change has occurred. Ultrasound evaluation demonstrates minimally prominent subareolar ducts without appreciable mass or intraluminal debris. LEFT BREAST: No significant suspicious finding. No significant changehas occurred. Ultrasound evaluation demonstrates minimally prominent subareolar ducts without appreciable mass or intraluminal debris. RECOMMENDATIONS: ROUTINE MAMMOGRAM AND CLINICAL EVALUATION IN 12 MONTHS. PLEASE NOTE: A NORMAL MAMMOGRAM DOES NOT EXCLUDE THE POSSIBILITY OFBREAST CANCER. A CLINICALLY SUSPICIOUS PALPABLE LUMP SHOULD BE BIOPSIED. Dictated by: Vito Yusuf M.D. on 04/07/2024 at 08:29 Approved by: Vito Yusuf M.D. on 04/07/2024 at 08:40 Dictated By: Vito Yusuf M.D. Signed By:04/07/24 0841 DD/ 0840 TD/TT: Foreclosure Clerk: us Luan Valdivia DO [facility] Final Result from Last 3 Months or Most Recently Relevant to Health Maintenance Insurance [employer] Care Teams Oxygen Tank Filler Relationship Specialty Start Date End Date Gay De La Torre MD [address] [place] [address] Referring Physician Family Medicine 07/18/24
--- OUTSIDE RECORDS SUMMARY | 2024-10-24 10:12 | XMS_ITS | Encounter Summary ---
Author Organization [facility] Address [address] [place] [address] Care Team Providers Care Dye House Worker Name Role Phone House, Charles Culver MD Primary Care Provider Gay De La Torre MD Unavailable [phone] Encounter Details Date Type Department Care Team (Late Contact Info) Description 04/26/2024 Clinisync Result Encounter [facility] External Department Unsolicited Judy Arciniega MD [address], [facility] [address] [place] [address] Social History Tobacco Use Types Packs/Day Years [...] [facility] [place] [address] [place] [address] Mary Grace Mejias MD [address] [place] [address] 07/25/2025 11:00 AM EST Office Visit [facility] [address] [facility] [address] [place] [address] Cynthia English MD [address] [place] [address] documented as of this encounter Procedures Procedure Name Priority Date/Time Associated Diagnosis Comments SEGMENTAL BLOOD PRESSURE 04/26/2024 12:29 PM EST documented in this encounter Results * SEGMENTAL BLOOD PRESSURE (04/26/2024 12:29 PM EST) Anatomical Region Laterality Modality Radiographic Melody ging 04/26/2024 12:2 9 PM EST Narrative 04/26/2024 12:31 PM EST The [address] [address] Vein Report Signed Patient: JONES PANIAGUA MR#: [id number] : 1980 Acct:[id number] Age/Sex: 43 / F ADM Date: 04/26/24 Loc: VC Attending Dr: Judy Arciniega M.D. Ordering Physician: Judy Arciniega M.D. Date of Service: 04/26/24 Procedure(s): VC SEGMENTAL PRESSURES Accession Number(s): [id number] cc: GAY DE LA TORRE ; Judy Arciniega M.D. The [address] [address] Patient Name: JONES PANIAGUA MRN: [id number] date: 1980 Sex: F Assigned Patient Location: Current Patient Location: Accession/Order Number: [id number] Exam Date: 04/26/2024 10:45 Report Date: 04/26/2024 12:29 At the request of: JUDY ARCINIEGA Procedure: VC SEGMENTAL PRESSURES EXAM: VC SEGMENTAL PRESSURES HISTORY: I73.9 COMPARISON: None. FINDINGS: Segmental pressures presented as follows (right, left) in mmHg. Brachial: 102, 109 Upper thigh: 175, 183 Lower thigh: 166, 177 Calf: 140, 143 DPA: 123, 148 TUBE INSPECTOR: 139, 155 1st Toe: 141, 143 SAMUEL: [...] Signed By: 04/26/24 1231 DD/ 1229 TD/TT: Window Shade Cutter And Mounter: Procedure Note Radiology, Radiologist, MD - 04/26/2024 [place] [address] Vein Report Signed Patient: JONES PANIAGUA BMR#: [id number] : 1980Acct:[id number] Age/Sex: 43 / FADM Date: 04/26/24 Loc: VC Attending Dr: Judy Arciniega M.D. Ordering Physician: Judy Arciniega M.D. Date of Service: 04/26/24 Procedure(s): VC SEGMENTAL PRESSURES Accession Number(s): [id number] cc: GAY DE LA TORRE ; Judy Arciniega M.D. The [place] [address] Patient Name: JONES PANIAGUA MRN: [id number] date: 1980 Sex: F Assigned Patient Location: Current Patient Location: VC Accession/Order Number: [id number] Exam Date: 04/26/2024 10:45 Report Date: 04/26/2024 12:29 At the request of: JUDY ARCINIEGA Procedure: VC SEGMENTAL PRESSURES EXAM: VC SEGMENTAL PRESSURES HISTORY: I73.9 COMPARISON: None. FINDINGS: Segmental pressures presented as follows (right, left) in mmHg. Brachial: 102, 109 Upper thigh: 175, 183 Lower thigh: 166, 177 Calf: 140, 143 DPA: 123, 148 TUBE INSPECTOR: 139, 155 1st Toe: 141, 143 SAMUEL: [...] 12:29 Dictated By: Aurora Shaikh M.D. Signed By:04/26/24 1231 DD/ 1229 TD/TT: Window Shade Cutter And Mounter: [facility] Demian LEE IMG XR PROCEDURES Final Resu lt documented in this encounter Visit Diagnoses Not on filedocumented in this encounter Care Teams Dye House Worker Relationship Specialty Start Date End Date Charles Nicole MD [address] [place] [address] PCP - General Family Medicine 02/09/24 07/17/24 Gay De La Torre MD [address] [place] [address] Referring Physician Family Medicine 07/18/24 documented as of this encounter
--- OUTSIDE RECORDS SUMMARY | 2024-10-24 10:12 | XMS_ITS | Encounter Summary ---
Author Organization [facility] Address [address] [facility] [place] [address] Care Team Providers Care Nurse Head Name Role Phone House, Charles Culver MD Primary Care Provider [phone] Gay De La Torre MD Unavailable [phone] Encounter Details Date Type Department Care Team (Late Contact Info) Description 06/14/2024 Clinisync Result Encounter [facility] External Department Unsolicited Oly Plascencia, KELVIN [address] [place] [address] [place] [address] Social History Tobacco Use Types Packs/Day Years [...] ENT [place] [address] [place] [address] Mary Grace Mejias MD 112 [facility] [address] [place] [address] 07/25/2025 11:00 AM EST Office Visit [facility] DERM [address] [facility] [address] [place] [address] Cynthia English MD [address] [place] [address] documented as of this encounter Procedures Procedure Name Priority Date/Time Associated Diagnosis Comments MM TOMOSYNTHESIS DIAGNOSTIC LT 06/14/2024 4:14 PM EST documented in this encounter Results * MM TOMOSYNTHESIS DIAGNOSTIC LT (06/14/2024 4:14 PM EST) Anatomical Region Laterality Modality Other 06/14/2024 4:14 PM EST Narrative 06/14/2024 4:15 PM EST The [address] [address] Mammography Report Signed Patient: JONES PANIAGUA MR#: [id number] : 1980 Acct:[id number] Age/Sex: 43 / F ADM Date: 06/14/24 Loc: MAMMO Attending Dr: Oly Plascencia Ordering Physician: Oly Plascencia Results: Date of Service: 06/14/24 Follow Up: Procedure(s): MM tomosynthesis diagnostic LT Accession Number(s): [id number] cc: Oly Plascencia; GAY DE LA TORRE Patient Name: JONES PANIAGUA MR#: [id number] : 1980 Exam Date: 06/14/2024 Ordering Doctor: KELVIN Plascencia . RADIOLOGY REPORT PROCEDURE: MM TOMOSYNTHESIS DIAGNOSTIC [...] stomach cancer at age 56. LOCATION: The [facility] BREAST COMPOSITION: There are scattered areas [...] BIOPSIED. Dictated by: Vito Yusuf M.D. on 06/14/2024 at 16:11 Approved by: Vito Yusuf M.D. on 06/14/2024 at 16:14 Dictated By: Vito Yusuf M.D. Signed By: 06/14/241614 DD/ 13 TD/TT: Planer Operator / Grader: Procedure Note Radiology, Radiologist, MD - 06/14/2024 [place] [address] Mammography Report Signed Patient: JONES PANIAGUA BMR#: [id number] : 1980Acct:[id number] Age/Sex: 43 / FADM Date: 06/14/24 Loc: MAMMO Attending Dr: Oly Plascencia Ordering Physician: Oly PlascenciaResults: Date of Service: 06/14/24Follow Up: Procedure(s): MM tomosynthesis diagnostic LT Accession Number(s): [id number] cc: GAY Mcpherson Patient Name: JONES PANIAGUA MR#: [id number] : 1980 Exam Date: 06/14/2024 Ordering Doctor: KELVIN Plascencia . RADIOLOGY REPORT PROCEDURE: MM TOMOSYNTHESIS DIAGNOSTIC LT COMPARISON: US BREAST LT LIMITED, 06/14/2024. MM TOMOSYNTHESISDIAGNOSTIC BI, 04/06/2024. MM TOMOSYNTHESIS SCREENING BI, 09/23/2023. MG MAMM [id number] MARK CAD, 09/01/2022. INDICATIONS: Left Axilla Nodule Calculator Name NCI Breast Cancer Risk Assessment Tool 5 Year Breast Cancer Risk 1.00% Lifetime Breast Cancer Risk 13.20% Personal Breast Cancer No Personal Ovarian Cancer No Treatments None Family Cancers Grandmother-paternal with breast cancer at age 67; Aunt-paternal with breast cancer at age 50; Father with stomach cancer at age 56. LOCATION: The [facility] BREAST COMPOSITION: There are scattered areas of fibroglandulardensity. FINDINGS: DIAGNOSTIC CATEGORY 3--PROBABLY BENIGN FINDING. THE FOLLOWING FINDING(S)HAS A HIGH PROBABILITY OF A BENIGN ETIOLOGY: LEFT BREAST: Skin surface marker present over the posterior upper outer quadrant with no underlying suspicious abnormality. Ultrasound evaluation demonstrates a hypoechoic nodule versus cyst withinthe axillary tail, 7 x 6 x 4 millimeters. No internal blood flow. Findings nonspecific but suggestive of a sebaceous gland cyst or possibly a lymphnode. Ultrasound-guided tissue sampling could be performed if clinicallyindicated. Otherwise clinical follow-up and annual screening mammography. RECOMMENDATIONS: CLINICAL EVALUATION. PLEASE NOTE: A NORMAL MAMMOGRAM DOES NOT EXCLUDE THE POSSIBILITY OFBREAST CANCER. A CLINICALLY SUSPICIOUS PALPABLE LUMP SHOULD BE BIOPSIED. Dictated by: Vito Yusuf M.D. on 06/14/2024 at 16:11 Approved by: Vito Yusuf M.D. on 06/14/2024 at 16:14 Dictated By: Vito Yusuf M.D. Signed By:06/14/24 1615 DD/ 1614 TD/TT: Planer Operator / Grader: Oly [facility] Final Result documented in this encounter Visit Diagnoses Not on filedocumented in this encounter Care Teams Nurse Head Relationship Specialty Start Date End Date Charles Nicole MD [address] [place] [address] PCP - General Family Medicine 02/09/24 07/17/24 Gay De La Torre MD [address] [place] [address] Referring Physician Family Medicine 07/18/24 documented as of this encounter
--- OUTSIDE RECORDS SUMMARY | 2024-10-24 10:12 | XMS_ITS | Encounter Summary ---
Author Organization [facility] Address [address] [facility] [place] [address] Care Team Providers Care Bullard Machine Operator Name Role Phone House, Charles Culver MD Primary Care Provider [phone] Gay De La Torre MD Unavailable [phone] Encounter Details Date Type Department Care Team (Late Contact Info) Description 06/20/2024 Orders Only [facility] BCP OB [address] [address] Sabi Barker LPN [address] [employer] [place] [id number] Social History Tobacco Use Types Packs/Day Years Used Date Smoking Tobacco: Every Day Cigarettes 1 29.4 Started: 05/24/1995 Smokeless Tobacco: Never Comments:Current smoker, carlos ryedwin, 11-20 cigarettes/day Alcohol Use Standard Drinks/Week Comments [...] ENT [place] [address] [place] [address] Mary Grace Mejias MD 112 [facility] [address] [place] [address] 07/25/2025 11:00 AM EST Office Visit [facility] [address] [facility] [address] [place] [address] Cynthia English MD [address] [place] [address] documented as of this encounter Procedures Procedure Name Priority Date/Time Associated Diagnosis Comments PAP SMEAR Routine 06/06/2024 12:00 AM EST documented in this encounter Results * Pap Smear (06/06/2024 12:00 AM EST) Swab Cervical swab / Unknown us Oly [facility] ORDERABLES Final Re sult EXTERNAL LAB documented in this encounter Visit Diagnoses Not on filedocumented in this encounter Care Teams Bullard Machine Operator Relationship Specialty Start Date End Date Charles Nicole MD [address] [place] [address] PCP - General Family Medicine 02/09/24 07/17/24 Gay De La Torre MD [address] [place] [address] Referring Physician Family Medicine 07/18/24 documented as of this encounter
--- OUTSIDE RECORDS SUMMARY | 2024-10-24 10:12 | XMS_ITS | Encounter Summary ---
Author Organization [facility] Address [address] [facility] [place] [address] Care Team Providers Care Aviation Manager Name Role Phone House, Charles Culver MD Primary Care Provider [phone] Gay De La Torre MD Unavailable [phone] Reason for Visit * Reason Comments Med Refill Encounter Details Date Type Department Care Team (Late Contact Info) Description 07/02/2024 Refill [facility] [place] [address] [place] [address] Mary Grace Mejias MD 112 [facility] [address] [place], [place] [phone] LPRD (laryngopharyngeal reflux disease) Social History Tobacco Use Types Packs/Day Years [...] 10:20 AM EDT Office Visit [facility] [address] [place] [address] Mary Grace Mejias MD [address] [employer] [address] [place], [place] [phone] 07/25/2025 11:00 AM EST Office Visit [facility] DERM [address] [place] [address] Cynthia English MD [address] [place] [address] documented as of this encounter Visit Diagnoses Diagnosis LPRD (laryngopharyngeal reflux disease) Acute laryngitis, without mention of obstruction documented in this encounter Care Teams Aviation Manager Relationship Specialty Start Date End Date Charles Nicole MD [address] [place] [address] PCP - General Family Medicine 02/09/24 07/17/24 Gay De La Torre MD [address] [place] [address] Referring Physician Family Medicine 07/18/24 documented as of this encounter
--- OUTSIDE RECORDS SUMMARY | 2024-10-24 10:12 | XMS_ITS | Encounter Summary ---
Author Organization [facility] Address [address] [place] [address] Care Team Providers Care Composition Roll Maker And Cutter Name Role Phone House, Charles Culver MD Primary Care Provider [phone] Gay De La Torre MD Unavailable [phone] Encounter Details Date Type Department Care Team (Late Contact Info) Description 10/19/2022 Abstract [facility] DERM [address] [facility] [address] [place] [address] Cynthia English MD [address] [facility] [address] [place] [address] Social History Tobacco Use Types Packs/Day Years Used Date Smoking Tobacco: Every Day Cigarettes Smokeless Tobacco: Never Tobacco Cessation:Ready to Q uit: Not Asked; Counseling Given: Not Answered Comments:Current smoker, everyday, 11-20 cigarettes/day Alcohol Use Standard Drinks/Week Comments Never 0 (1 standard drink = 0.6 oz pur e alcohol) caffeine >4 cups/day Comments Unknown Sex and Gender Information Value Date Recorded Sex Assigned at Not on file Legal Sex Female 7:18 PM EDT Gender Identity Not on file Sexual Orientation Not on file documented as of this encounter Plan of Treatment Upcoming Encounters Date Type Department Care Team (Late st Contact Info) Description 03/19/2025 10:20 AM EDT Office Visit [facility] ENT [facility] [address] [place] [address] Mary Grace Mejias MD 112 [facility] [address] [place] [address] 07/25/2025 11:00 AM EST Office Visit [facility] DERM [address] [place] [address] Cynthia English MD [address] [place] [address] documented as of this encounter Visit Diagnoses Not on filedocumented in this encounter Care Teams Composition Roll Maker And Cutter Relationship Specialty Start Date End Date Charles Nicole MD [address] [place] [address] PCP - General Family Medicine 02/09/24 07/17/24 Gay De La Torre MD [facility] [place] [address] Referring Physician Family Medicine 07/18/24 documented as of this encounter
--- OUTSIDE RECORDS SUMMARY | 2024-10-24 10:12 | XMS_ITS | Encounter Summary ---
Author Organization [facility] Address [address] [facility] [place] [address] Care Team Providers Care Orthopedic Physician Assistant Name Role Phone House, Charles Culvre MD Primary Care Provider Gay De La Torre MD Unavailable [phone] Encounter Details Date Type Department Care Team (Late st Contact Info) Description 04/07/2024 Clinisync Result Encounter N[facility] External Department Unsolicited Luan Valdivia, DO 102 [facility] [place]am [place], [place] [id number] Social History Tobacco Use Types Packs/Day Years [...] [facility] [place] [address] [place] [address] Mary Grace Mejias MD [address] [place] [address] 07/25/2025 11:00 AM EST Office Visit [facility] DERM [address] [facility] [address] [place] [address] Cynthia English MD [address] [place] [id number] documented as of this encounter Procedures Procedure Name Priority Date/Time Associated Diagnosis Comments US BREAST BI LIMITED 04/07/2024 8:40 AM EST documented in this encounter Results * US BREAST BI LIMITED (04/07/2024 8:40 AM EST) Anatomical Region Laterality Modality Other 04/07/2024 8:40 AM EST Narrative 04/07/2024 8:41 AM EST The [address] [address] Ultrasound Report Signed Patient: JONES PANIAGUA MR#: [id number] : 1980 Acct:[id number] Age/Sex: 43 / F ADM Date: 04/06/24 Loc: US Attending Dr: Luan Valdivia D.O. Ordering Physician: Luan Valdivia D.O. Date of Service: 04/06/24 Procedure(s): US breast BI limited Accession Number(s): [id number] cc: GAY DE LA TORRE ; Luan Valdivia D.O. Patient Name: JONES PANIAGUA MR#: [id number] : 1980 Exam Date: 04/06/2024 Ordering Doctor: [...] stomach cancer at age 56. LOCATION: The [facility] BREAST COMPOSITION: There are scattered areas of [...] Signed By: 04/07/24 0841 DD/ 0840 TD/TT: Stage Driver: Procedure Note Radiology, Radiologist, MD - 04/07/2024 [place] [address] Ultrasound Report Signed Patient: JONES PANIAGUA BMR#: [id number] : 1980Acct:[id number] Age/Sex: 43 / FADM Date: 04/06/24 Loc: US Attending Dr: Luan Valdivia D.O. Ordering Physician: Luan Valdivia D.O. Date of Service: 04/06/24 Procedure(s): US breast BI limited Accession Number(s): [id number] cc: GAY DE LA TORRE ; Luan Valdivia D.O. Patient Name: JONES PANIAGUA MR#: [id number] : 1980 Exam Date: 04/06/2024 Ordering Doctor: DR Luan Valdivia . RADIOLOGY REPORT PROCEDURE: MM TOMOSYNTHESIS DIAGNOSTIC BI, 04/06/2024, 15:20 US BREAST BI LIMITED, 04/06/2024, 15:37 COMPARISON: MM TOMOSYNTHESIS SCREENING BI, 09/23/2023. MG MAMM [id number] MARK CAD, 09/01/2022. MG MAMM SCREEN 3D [...] stomach cancer at age 56. LOCATION: The [facility] BREAST COMPOSITION: There are scattered areas of [...] M.D. Signed By:04/07/24 0841 DD/ 0840 TD/TT: Stage Driver: [facility] Skip DO [facility] Final Result documented in this encounter Visit Diagnoses Not on filedocumented in this encounter Care Teams Orthopedic Physician Assistant Relationship Specialty Start Date End Date Charles Nicole MD [address] [place] [address] PCP - General Family Medicine 02/09/24 07/17/24 Gay De La Torre MD [address] [place] [address] Referring Physician Family Medicine 07/18/24 documented as of this encounter
--- OUTSIDE RECORDS SUMMARY | 2024-10-24 10:12 | XMS_ITS | Encounter Summary ---
Author Organization [facility] Address [id number] [address] [place] [place] [address] Care Team Providers Care Healthcare Consultant Name Role Phone Unavailable Primary Care Provider Unavailabl e Encounter Details Date Type Department Care Team (Late st Contact Info) Description 05/05/2024 Orders Only [facility] [address] [place] [address] Felicia Payne CMA Cold extremities; Pain of lower extremity, unspecified laterality; Systemic lupus erythematosus ([facility]) Social History Tobacco Use Types Packs/Day Years Used Date Smoking Tobacco: Every Day Cigarettes Smokeless Tobacco: Never Childcare Answer Date Recorded Childcare Unknown 11/02/2018 [...] on file documented as of this encounter Visit Diagnoses Diagnosis Cold extremities Pain of lower extremity, unspecified laterality Systemic lupus erythematosus ([facility]-HCC) documented in this encounter
--- OUTSIDE RECORDS SUMMARY | 2024-10-24 10:12 | XMS_ITS | Encounter Summary ---
Author Organization [facility] Address [address] [facility] [place] [address] Care Team Providers Care Underwear Trimmer Name Role Phone House, Charles Culver MD Primary Care Provider [phone] Gay De La Torre MD Unavailable [phone] Encounter Details Date Type Department Care Team (Late Contact Info) Description 06/14/2024 Clinisync Result Encounter [facility] External Department Unsolicited Oly Plascencia, KELVIN [address] [place] [address] [place] [address] Social History Tobacco Use Types [...] [facility] [place] [address] [place] [address] Mary Grace Mejias MD 112 [facility] [address] [place] [address] 07/25/2025 11:00 AM EST Office Visit [facility] DERM [address] [facility] [address] [place] [address] Cynthia English MD [address] [place] [address] documented as of this encounter Procedures Procedure Name Priority Date/Time Associated Diagnosis Comments US BREAST LT LIMITED 06/14/2024 3:04 PM EST documented in this encounter Results * US BREAST LT LIMITED (06/14/2024 3:04 PM EST) Anatomical Region Laterality Modality Other 06/14/2024 3:04 PM EST Narrative 06/14/2024 3:05 PM EST [address] [address] Ultrasound Report Signed Patient: ARIADNA PANIAGUA MR#: [id number] : 1980 Acct:[id number] Age/Sex: 43 / F ADM Date: 06/14/24 Loc: MAMMO Attending Dr: Oly Plascencia Ordering Physician: Oly Plascencia Date of Service: 06/14/24 Procedure(s): US breast LT limited Accession Number(s): [id number] cc: Oly Plascencia; GAY DE LA TORRE Patient Name: ARIADNA PANIAGUA MR#: [id number] : 1980 Exam Date: 06/14/2024 Ordering Doctor: KELVIN Plascencia . RADIOLOGY REPORT PROCEDURE: US BREAST LT [...] by: Vito Yusuf M.D. on 06/14/2024 at 15:01 Approved by: Vito Yusuf M.D. on 06/14/2024 at 15:04 Dictated By: Vito Yusuf M.D. Signed By: 06/14/24 1505 DD/ 1504 TD/TT: Community Product Specialist: Procedure Note Radiology, Radiologist, MD - 06/14/2024 [place] [address] Ultrasound Report Signed Patient: ARIADNA PANIAGUA BMR#: [id number] : 1980Acct:[id number] Age/Sex: 43 / FADM Date: 06/14/24 Loc: MAMMO Attending Dr: Oly Plascencia Ordering Physician: Oly Plascencia Date of Service: 06/14/24 Procedure(s): US breast LT limited Accession Number(s): [id number] cc: Oly Plascencia; GAY DE LA TORRE Patient Name: ARIADNA PANIAGUA MR#: [id number] : 1980 Exam Date: 06/14/2024 Ordering Doctor: KELVIN Plascencia . RADIOLOGY REPORT PROCEDURE: US BREAST LT LIMITED COMPARISON: None. INDICATIONS: Left Axilla Nodule TECHNIQUE: Breast ultrasound was performed, with evaluation focusingonly on specific areas of concern. FINDINGS: DIAGNOSTIC CATEGORY 3--PROBABLY BENIGN FINDING. THE FOLLOWING FINDING(S)HAS A HIGH PROBABILITY OF A BENIGN ETIOLOGY: LEFT BREAST: Within the subdermal layer of the left breast axillary tail corresponding to patient's palpable lump is a 7 x 6 x 4 mm hypoechoic well-circumscribed lesion with slightly isoechoic central and noappreciable internal blood flow on color Doppler. Sebaceous gland cyst versus lymphnode? Neoplasm is not excluded but felt less likely. Ultrasound-guided tissue sampling could be performed if clinically indicated. RECOMMENDATIONS: CLINICAL EVALUATION. PLEASE NOTE: A NORMAL ULTRASOUND EXAMINATION DOES NOT EXCLUDE THEPOSSIBILITY OF BREAST CANCER. A CLINICALLY SUSPICIOUS PALPABLE LUMP SHOULD BEBIOPSIED. Dictated by: Vito Yusuf M.D. on 06/14/2024 at 15:01 Approved by: Vito Yusuf M.D. on 06/14/2024 at 15:04 Dictated By: Vito Yusuf M.D. Signed By:06/14/24 1505 DD/ 1504 TD/TT: Community Product Specialist: Oly [facility] Final Result documented in this encounter Visit Diagnoses Not on filedocumented in this encounter Care Teams Underwear Trimmer Relationship Specialty Start Date End Date Charles Nicole MD [address] [place] [address] PCP - General Family Medicine 02/09/24 07/17/24 Gay De La Torre MD [address] [place] [address] Referring Physician Family Medicine 07/18/24 documented as of this encounter
--- OUTSIDE RECORDS SUMMARY | 2024-10-24 10:12 | XMS_ITS | Encounter Summary ---
Author Organization [facility] Address [address] [facility] [place] [address] Care Team Providers Care Gerontological Nurse Practitioner Name Role Phone House, Charles Culver MD Primary Care Provider [phone] Gay De La Torre MD Unavailable [phone] Encounter Details Date Type Department Care Team (Late st Contact Info) Description 04/07/2024 Clinisync Result Encounter [facility] External Department Unsolicited Luan Valdivia, DO 102 [facility] [place], [place] [id number] Social History Tobacco Use Types Packs/Day Years [...] [facility] [place] [address] [place] [address] Mary Grace Mejias MD [address] [place] [address] 07/25/2025 11:00 AM EST Office Visit [facility] DERM [address] [facility] [address] [place] [address] Cynthia English MD [address] [place] [address] documented as of this encounter Procedures Procedure Name Priority Date/Time Associated Diagnosis Comments MM TOMOSYNTHESIS DIAGNOSTIC BI 04/07/2024 8:40 AM EST documented in this encounter Results * MM TOMOSYNTHESIS DIAGNOSTIC BI (04/07/2024 8:40 AM EST) Anatomical Region Laterality Modality Other 04/07/2024 8:40 AM EST Narrative 04/07/2024 8:41 AM EST [address] [address] Mammography Report Signed Patient: JONES PANIAGUA MR#: [id number] : 1980 Acct:[id number] Age/Sex: 43 / F ADM Date: 04/06/24 Loc: US Attending Dr: Luan Valdivia D.O. Ordering Physician: Luan Valdivia D.O. Results: Date of Service: 04/06/24 Follow Up: Procedure(s): MM tomosynthesis diagnostic BI Accession Number(s): [id number] cc: GAY DE LA TORRE ; Luan Valdivia D.O. Patient Name: JONES PANIAGUA MR#: [id number] : 1980 Exam Date: 04/06/2024 Ordering Doctor: [...] stomach cancer at age 56. LOCATION: The [facility] BREAST COMPOSITION: There are scattered areas of [...] Signed By: 04/07/24 0841 DD/ 0840 TD/TT: Carrot Buncher: Procedure Note Radiology, Radiologist, MD - 04/07/2024 [place] [address] Mammography Report Signed Patient: JONES PANIAGUA BMR#: [id number] : 1980Acct:[id number] Age/Sex: 43 / FADM Date: 04/06/24 Loc: US Attending Dr: Luan Valdivia D.O. Ordering Physician: Luan Valdivia D.O.Results: Date of Service: 04/06/24Follow Up: Procedure(s): MM tomosynthesis diagnostic BI Accession Number(s): [id number] cc: GAY DE LA TORRE ; Luan Valdivia D.O. Patient Name: JONES PANIAGUA MR#: [id number] : 1980 Exam Date: 04/06/2024 Ordering Doctor: DR Luan Valdivia . RADIOLOGY REPORT PROCEDURE: MM TOMOSYNTHESIS DIAGNOSTIC BI, 04/06/2024, 15:20 US BREAST BI LIMITED, 04/06/2024, 15:37 COMPARISON: MM TOMOSYNTHESIS SCREENING BI, 09/23/2023. MG MAMM [id number] MARK CAD, 09/01/2022. MG MAMM SCREEN 3D [...] stomach cancer at age 56. LOCATION: The [facility] BREAST COMPOSITION: There are scattered areas of [...] M.D. Signed By:04/07/24 0841 DD/ 0840 TD/TT: Carrot Buncher: us Luan Skip DO [facility] Final Result documented in this encounter Visit Diagnoses Not on filedocumented in this encounter Care Teams Gerontological Nurse Practitioner Relationship Specialty Start Date End Date Charles Nicole MD [address] [place] [address] PCP - General Family Medicine 02/09/24 07/17/24 Gay De La Torre MD [address] [place] [id number] Referring Physician Family Medicine 07/18/24 documented as of this encounter
--- OUTSIDE RECORDS SUMMARY | 2024-10-24 10:12 | XMS_ITS | Clinical Summary ---
Author Organization [facility] Address [id number] [address] [place] [address] Care Team Providers Care Access Lead Name Role Phone Unavailable Primary Care Provider Unavailabl e Allergies Active Allergy Reactions Criticality Noted Date Comments Clindamycin Low 03/04/2022 Other Reaction(s): Unknown, Unknown Reaction Other Reaction(s): Unknown Patient states it was a long time ago and she did not have a severe reaction. She does not believe she is allergic, she just thinks she just experienced side effects. Other Reaction(s): Unknown Reaction Patient states it was a long time ago and she did not have a severe reaction. She does not believe she is allergic, she just thinks she just experienced side effects. Codeine 05/31/2014 Other Reaction(s): jittery, Other: See Comments, Trouble breathing 17-JUN-2015 17:55:17<$> Other Reaction(s): Other: See Comments, Trouble breathing ... Make her feel Jittery. OTHERWISE, NO SOB/WHEEZING, and NO DYSPHAGIA, NO URTICARIA, NO ANGIOEDEMA Make her feel Jittery. OTHERWISE, NO SOB/WHEEZING, and NO DYSPHAGIA, NO URTICARIA, NO ANGIOEDEMA Doxycycline Other (See Comments) Low 01/19/2022 Other Reaction(s): Other: See Comments, Unknown Patient states it was a long time ago and she did not have a severe reaction. She does not believe she is allergic, she just thinks she just experienced side effects. Sulfamethoxazole-Trime thoprim GI Disturbance,Other (See Comments),Swelling Low 02/24/2016 Other Reaction(s): GI upset Patient states it was a long time [...] thinks she just experienced side effects. Medications * This document contains information received from the source organization and may not represent a complete record from that organization. folic acid (FOLVITE) 1 mg tablet Take 1 tablet (1 mg total) by mouth in the morning. Active pregabalin (LYRICA) 75 mg capsule Take 1 capsule (75 mg total) by mouth as needed. 4 Active acetaminophen (TYLENOL) 325 mg tablet Take 1 tablet (325 mg total) by mouth every 6 (six) hours as needed. Active thiamine HCl (VITAMIN B-1) 100 mg tablet Take 1 tablet (100 mg total) by mouth in the morning. 4 02/07/20 25 Active diclofenac sodium (VOLTAREN ARTHRITIS PAIN) 1 % gel Apply 2 g topically 4 (four) times a day as needed. 4 Active ALPRAZolam (XANAX) 0.25 mg tablet Take 1 tablet (0.25 mg total) by mouth nightly as needed for anxiety. 4 Active aspirin 81 mg chewable tablet Chew 1 tablet (81 mg total) and swallow in the morning. Active IMURAN 50 mg tablet Take 1 tablet (50 mg total) by mouth in the morning. 4 Active baclofen 5 mg tablet Take 5 mg by mouth as needed. Active belimumab 200 mg/mL auto-injector Inject 200 mg under the skin once a week. 4 Active clotrimazole (MYCELEX) 10 mg christel Dissolve 1 Christel in the mouth in the morning and 1 Christel at noon and 1 Christel in the evening and 1 Christel before bedtime. 4 Active cyanocobalamin (VITAMIN B-12) 1,000 mcg/mL injection Inject 1 mL (1,000 mcg total) under the skin every 30 (thirty) days. 4 Active ergocalciferol (DRISDOL) 1,250 mcg (50,000 unit) capsule Take 1 capsule (50,000 Units total) by mouth once a week. 4 Active famotidine (PEPCID) 20 mg tablet Take 1 tablet (20 mg total) by mouth 2 (two) times a day as needed. Active fluticasone propionate (FLONASE) 50 mcg/actuation nasal spray Administer 2 sprays into each nostril as needed. Active hydroxychloroqu ine 400 mg tablet Take 400 mg by mouth in the morning. Active ibuprofen (ADVIL,MOTRIN) 200 mg tablet Take 1 tablet (200 mg total) by mouth every 8 (eight) hours as needed. Active metoprolol tartrate (LOPRESSOR) 50 mg tablet Take 2 tablets (100 mg total) by mouth in the morning and 2 tablets (100 mg total) before bedtime. 3 Active predniSONE (STERAPRED DS) 10 mg tablet pack Take 1 tablet (10 mg total) by mouth in the morning. Active tacrolimus (PROTOPIC) 0.1 % ointment Apply 1 Application topically as needed. 4 Active tretinoin (RETIN-A) 0.05 % cream Apply topically nightly. 4 Active triamcinolone acetonide (KENALOG) 0.025 % lotion Apply 1 Application topically as needed. Active Active Problems Problem Noted Date Diagnosed Date Lupus erythematosus 04/06/2024 Sacroiliitis 04/06/2024 Chronic pain disorder 04/06/2024 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 04/06/2024 Assessment & Plan (04/06/2024 10:10 AM EST): We will get lower extremity PVR with cold immersion test. I counseled her on the diagnosis and identifying and avoiding provoking factors. I also counseled her that managing her SLE and autoimmune connective tissue disorders is balderrama for managing her Raynaud's. All her questions were answered. Degenerative disc disease, lumbar 11/08/2023 Current smoker 07/06/2023 Overview (04/06/2024): Added secondary to documentation in Social History. Added secondary to documentation in Social History. Cytomegalovirus infection 07/06/2023 Chronic fatigue and malaise 06/10/2023 Arthritis 06/09/2023 Anxiety 06/09/2023 Autonomic dysfunction 06/01/2023 Autoimmune disease 06/01/2023 Systemic lupus erythematosus 10/24/2021 Fibromyalgia 10/24/2021 Rheumatoid arthritis 06/28/2021 Bilateral leg weakness 03/05/2021 Social History Tobacco Use Types Packs/Day Years Used Date Smoking Tobacco: Every Day Cigarettes Smokeless Tobacco: Never Tobacco Cessation:Ready to Q uit: Not Asked; Counseling Given: Not Answered Childcare Answer Date Recorded Childcare Unknown 11/02/2018 [...] Sign Reading Time Taken Comments Blood Pressure 136/80 04/06/2024 10:00 AM EST Pulse 86 04/06/2024 10:00 AM EST Temperature 36.1 C (97 F) 04/06/2024 10:00 AM EST Respiratory Rate - - Oxygen Saturation 97% 04/06/2024 10:00 AM EST Inhaled Oxygen Concentration - - Weight 124.7 kg (275 lb) 04/06/2024 10:00 AM EST Height 170.2 cm (5' 7 ) 04/06/2024 10:00 AM EST Body Mass Index 43.07 04/06/2024 10:00 AM EST Plan of Treatment Health Maintenance Due Date Last Done Comments Tobacco Counseling 1980 Depression Screening 1992 Adult BMI Follow Up Plan 1998 DTaP,Tdap and Td Vaccines (1 - Tdap) 10/05/1999 COVID-19 Vaccine (2023-2 5 season) 2024 02/23/2023, 02/08/2022, 05/26/2021, Additional history exists Influenza Vaccine 01/22/2025 Adult BMI Screening 04/06/2025 04/06/2024 Tobacco Screening 04/06/2025 04/06/2024 Pap Smear 09/10/2025 09/10/2022 Medical Devices Not on file Insurance [employer]
--- OUTSIDE RECORDS SUMMARY | 2024-10-24 10:12 | XMS_ITS | Encounter Summary ---
Author Organization [facility] Address [address] [facility] [place] [address] Care Team Providers Care Prepress Stripper Name Role Phone House, Charles Culver MD Primary Care Provider [phone] Gay De La Torre MD Unavailable [phone] Encounter Details Date Type Department Care Team (Late Contact Info) Description 04/07/2024 Clinisync Result Encounter [facility] External Department Unsolicited Oly Parnell, KELVIN [address] [place] [address] [place] [address] Social History Tobacco Use Types [...] [facility] [place] [address] [place] [address] Mary Grace Mejias MD [address] [place] [address] 07/25/2025 11:00 AM EST Office Visit [facility] [address] [facility] [address] [place] [address] Cynthia English MD [address] [address] documented as of this encounter Procedures Procedure Name Priority Date/Time Associated Diagnosis Comments US PELVIS W/ TRANSVAGINAL 04/07/2024 4:48 AM EST documented in this encounter Results * US PELVIS W/ TRANSVAGINAL (04/07/2024 4:48 AM EST) Anatomical Region Laterality Modality Other 04/07/2024 4:48 AM EST Narrative 04/07/2024 4:51 AM EST [address] [address] Ultrasound Report Signed Patient: JONES PANIAGUA MR#: [id number] : 1980 Acct:[id number] Age/Sex: 43 / F ADM Date: 04/06/24 Loc: LAB Attending Dr: Oly Parnell Ordering Physician: Oly Parnell Date of Service: 04/06/24 Procedure(s): US pelvis w/ transvaginal Accession Number(s): [id number] cc: GAY Mcpherson [address] [address] Patient Name: JONES PNAIAGUA MRN: [id number] date: 1980 Sex: F Assigned Patient Location: LAB Current Patient Location: Accession/Order Number: [id number] Exam Date: 04/06/2024 15:45 Report Date: 04/07/2024 [...] 2.2 cm benign-appearing cyst. Electronically authenticated by: VITO YUSUF Date: 04/07/2024 04:48 Dictated By: Vito Yusuf M.D. Signed By: 04/07/24 0451 DD/ TD/TT: Transcription Specialist: Procedure Note Radiology, Radiologist, MD - 04/07/2024 [place] [address] Ultrasound Report Signed Patient: JONES PANIAGUA R#: [id number] : 1980Acct:[id number] Age/Sex: 43 / FADM Date: 04/06/24 Loc: LAB Attending Dr: Oly Parnell Ordering Physician: Oly Parnell Date of Service: 04/06/24 Procedure(s): US pelvis w/ transvaginal Accession Number(s): [id number] cc: Oly Parnell; GAY DE LA TORRE [address] [place] [id number] Patient Name: JONES PANIAGUA MRN: [facility]:[id number] date: 1980 Sex: F Assigned Patient Location: LAB Current Patient Location: Accession/Order Number: [id number] Exam Date: 04/06/2024 15:45 Report Date: 04/07/2024 [...] waveform and flow; resistive index 0.6. Ovary size:3.3 x 2.6 x 2.7 cm LEFT OVARY: Not seen. CUL-DE-SAC: Unremarkable. No significant free fluid. BLADDER: Unremarkable. OTHER: None. US/US pelvis w/ transvaginal IMPRESSION: 1. No suspicious findings to account for patient's menorrhagia. 2. Right ovary contains a 2.2 cm benign-appearing cyst. Electronically authenticated by: VITO YUSUF Date: 04/07/2024 04:48 Dictated By: Vito Yusuf M.D. Signed By:04/07/24 0451 DD/ 0448 TD/TT: Transcription Specialist: us [facility] Final Result documented in this encounter Visit Diagnoses Not on filedocumented in this encounter Care Teams Prepress Stripper Relationship Specialty Start Date End Date Charles Nicole MD [address] [place] [address] PCP - General Family Medicine 02/09/24 07/17/24 Gay De La Torre MD [address] [place] [address] Referring Physician Family Medicine 07/18/24 documented as of this encounter
--- OUTSIDE RECORDS SUMMARY | 2024-10-24 10:13 | XMS_ITS | Encounter Summary ---
Author Organization [facility] Address [address] [place] [address] Care Team Providers Care Flat Ironer Name Role Phone Manuel Klein MD Unavailable [phone] Manuel Klein MD Primary Care Provider +-4 Manuel Klein MD Unavailable [phone] Source Comments In the event this information is protected by the Federal Confidentiality of Alcohol and Drug AbusePatient Records regulations: The Federal rules restrict any use of the information to criminally investigate or prosecute any alcohol or drug abuse patient.[facility] Reason for Visit * Reason Comments Refill Request Encounter Details Date Type Department Care Team (Late st Contact Info) Description 10/16/2023 Refill Rheumatology [address] [place] [address] Sandra Park MD [address] [place], [place] [id number] Refill Request Social History Tobacco Use Types [...] is lower risk 4 09/24/2022 Data from: https://www.neighborhoodatlas.medicine.[facility]/. Last address used for calculation [address] 09/24/2022 Comments No Sex and Gender [...] Telephone Encounter - Sandra Park MD - 10/19/2023 9:22 PM EDT Notify patient medication sent as requested Thank you. Patient's request for medication is as follows: Requested Prescriptions Pending Prescriptions Disp Refills hydrOXYchloroQUINE (PLAQUENIL) 200 mg tablet [Pharmacy Med Name: HYDROXYCHLOROQUINE 200 MG TAB] 60 tablet 11 Sig: TAKE 1 TAB TWICE A DAY WITH FOOD *SUNSCREEN WHILE OUTDOORS/OPHTHAMOLOGY EVERY 6-12 MONTHS WHILE ON* Prescription(s) as above. Please process accordingly. Sandra Park MD * Telephone Encounter - Krista Braswell MA - 10/19/2023 8:00 AM EDT Images from the original note were not included. Most recent Rheumatology visit: 10/05/2023 (with Sandra Park) Rheumatology Care Team: None on file Recent Office Visits - This Specialty 10/05/2023 Other systemic lupus erythematosus with other organ involvement (HCC) Rheumatology Sandra Park MD 02/04/2023 Other systemic lupus erythematosus with [...] months 06/02/24 06/03/23 08/31/23 Auth. provider: Jose Cho MD Assoc. diagnoses: Megaloblastic anemia due to vitamin B12 deficiency, Elevated sed rate COMP METABOLIC PANEL [SQCMP] 3/5 Every 3 months 06/02/24 06/03/23 08/31/23 Auth. provider: Jose Cho MD Assoc. diagnoses: Megaloblastic anemia due to vitamin B12 deficiency, Elevated sed rate IRON + TIBC [SQIRON] 3/5 Every 3 months 06/02/24 06/03/23 08/31/23 Auth. provider: Jose Cho MD Assoc. diagnoses: Megaloblastic anemia due to vitamin B12 deficiency, Elevated sed rate FERRITIN BLD [SQFERR] 3/5 Every 3 months 06/02/24 06/03/23 08/31/23 Auth. provider: Jose Cho MD Assoc. diagnoses: Megaloblastic anemia due to vitamin B12 deficiency, Elevated sed rate VITAMIN B12 BLOOD [SQB12] 3/5 Every 3 months 06/02/24 06/03/23 08/31/23 Auth. provider: Jose Cho MD Assoc. diagnoses: Megaloblastic anemia due to vitamin B12 deficiency, Elevated sed rate FOLATE SERUM [SQSERFOL] 3/5 Every 3 months 06/02/24 06/03/23 08/31/23 Auth. provider: Jose Cho MD Assoc. diagnoses: Megaloblastic anemia due to vitamin B12 deficiency, Elevated sed rate SED RATE WESTERGREN [SQWSR] 3/4 Every 3 months 06/09/24 06/10/23 08/31/23 Auth. provider: Jose Cho MD Assoc. diagnoses: Elevated sed rate Open Future (Single Instance) Lab Orders Expected Expires Ordered COMPREHENSIVE METABOLIC PANEL [SQCMP] 12/04/23 09/03/24 09/04/23 Auth. provider: Sandra Park MD Assoc. diagnoses: Elevated LFTs COMPLETE BLOOD COUNT [SQCBC] 12/04/23 09/03/24 09/04/23 Auth. provider: Sandra Park MD Assoc. diagnoses: Anemia of chronic disease SEDIMENTATION RATE, WESTERGREN [SQWSR] 12/04/23 09/03/24 09/04/23 Auth. provider: Sandra Park MD Assoc. diagnoses: Elevated sed rate, Elevated C-reactive protein (CRP) C-REACTIVE PROTEIN [SQCRP] 12/04/23 09/03/24 09/04/23 Auth. provider: Sandra Park MD Assoc. diagnoses: Elevated sed rate, Elevated C-reactive protein (CRP) VITAMIN D 25 HYDROXY [SQVITD] 12/04/23 09/03/24 09/04/23 Auth. provider: Sandra Park MD Assoc. diagnoses: Vitamin D deficiency COMPLETE BLOOD COUNT AND DIFFERENTIAL [SQCBCDIF] 12/02/23 09/08/24 09/09/23 Auth. provider: Jose Cho MD Assoc. diagnoses: Megaloblastic anemia due to vitamin B12 deficiency, High total serum IgM COMPREHENSIVE METABOLIC PANEL [SQCMP] 12/02/23 09/08/24 09/09/23 Auth. provider: Jose Cho MD Assoc. diagnoses: Megaloblastic anemia due to vitamin B12 deficiency, High total serum IgM IRON AND TIBC [SQIRON] 12/02/23 09/08/24 09/09/23 Auth. provider: Jose Cho MD Assoc. diagnoses: Megaloblastic anemia due to vitamin B12 deficiency, High total serum IgM FERRITIN [SQFERR] 12/02/23 09/08/24 09/09/23 Auth. provider: Jose Cho MD Assoc. diagnoses: Megaloblastic anemia due to vitamin B12 deficiency, High total serum IgM VITAMIN B12 [SQB12] 12/02/23 09/08/24 09/09/23 Auth. provider: Jose Cho MD Assoc. diagnoses: Megaloblastic anemia due to vitamin B12 deficiency, High total serum IgM FOLATE, SERUM [SQSERFOL] 12/02/23 09/08/24 09/09/23 Auth. provider: Jose Cho MD Assoc. diagnoses: Megaloblastic anemia due to vitamin B12 deficiency, High total serum IgM IMMUNOGLOBULIN A [SQIGA] 12/02/23 03/02/24 09/09/23 Auth. provider: Jose Cho MD Assoc. diagnoses: Megaloblastic anemia due to vitamin B12 deficiency, High total serum IgM IMMUNOGLOBULIN E [SQIGE] 12/02/23 03/02/24 09/09/23 Auth. provider: Jose Cho MD Assoc. diagnoses: Megaloblastic anemia due to vitamin B12 deficiency, High total serum IgM IMMUNOGLOBULIN G [SQIGG] 12/02/23 03/02/24 09/09/23 Auth. provider: Jose Cho MD Assoc. diagnoses: Megaloblastic anemia due to vitamin B12 deficiency, High total serum IgM IMMUNOGLOBULIN M [SQIGM] 12/02/23 03/02/24 09/09/23 Auth. provider: Jose Cho MD Assoc. diagnoses: Megaloblastic anemia due to vitamin B12 deficiency, High total serum IgM SEDIMENTATION RATE, WESTERGREN [SQWSR] 12/02/23 03/02/24 09/09/23 Auth. provider: Jose Cho MD Assoc. diagnoses: Megaloblastic anemia due to vitamin B12 deficiency, High total serum IgM documented in this encounter Plan of Treatment Upcoming Encounters Date Type Department Care Team (Latest Contact Info) Description 11/01/2024 9:00 AM EDT Infusion Center Hematology/Oncology [address] [place] [address] [place] [address] IVIG q 4 weeks with B 12 inj and lab 11/29/2024 8:45 AM EDT Office Visit [facility] [address] [place] [address] 3 mo F/U-IVIG(slow infusion per pt request/B12 +/-IV iron lab 11/29/2024 9:00 AM EDT Visit (SP) Office Hematology/Oncology [address] [place] [address] [place] [address] Fara Lopez APRN.PATTERN GRADER CUTTER [address] [address] 3 mo F/U-IVIG(slow infusion per pt request/B12 +/-IV iron lab 11/29/2024 9:30 AM EDT Infusion Center Hematology/Oncology [address] [place] [address] [place] [address] 3 mo F/U-IVIG(slow infusion per pt request/B12 +/-IV iron lab documented as of this encounter Visit Diagnoses Diagnosis CHRISTIAN positive Other and unspecified nonspecific immunological findings Other systemic lupus erythematosus with other organ involvement (HCC) documented in this encounter Care Teams Flat Ironer Relationship Specialty Start Date End Date Manuel Klein MD PCP - General Family Medicine 02/27/22 Manuel Klein MD Referring Family Medicine 02/12/22 Manuel Klein MD [address] [place] [address] Referring Family Medicine 07/06/24 documented as of this encounter
--- OUTSIDE RECORDS SUMMARY | 2024-10-24 10:13 | XMS_ITS | Encounter Summary ---
Author Organization [facility] Address [address] [place] [address] Care Team Providers Care Sales Attendant Name Role Phone Manuel Klein MD Unavailable [phone] Manuel Klein MD Primary Care Provider +-4 Manuel Klein MD Unavailable [phone] Source Comments In the event this information is protected by the Federal Confidentiality of Alcohol and Drug AbusePatient Records regulations: The Federal rules restrict any use of the information to criminally investigate or prosecute any alcohol or drug abuse patient.[facility] Encounter Details Date Type Department Care Team (Late st Contact Info) Description 01/26/2024 [place] [address] Provider, [facility] Important changes to Wellness RX Refill policy Social History Tobacco Use Types Packs/Day Years [...] is lower risk 4 09/24/2022 Data from: https://www.neighborhoodatlas.[facility].edu/. Last address used for calculation [address] 09/24/2022 Comments No Sex and Gender Information [...] 11/01/2024 9:00 AM EDT Infusion Center Hematology/Oncology [address] [place] [address] [place] [address] IVIG q 4 weeks with B 12 inj and lab 11/29/2024 8:45 AM EDT Office Visit [facility] [address] [place] [address] [place] [address] 3 mo F/U-IVIG(slow infusion per pt request/B12 +/-IV iron lab 11/29/2024 9:00 AM EDT Visit (SP) Office Hematology/Oncology [address] [place] [address] [place] [address] Fara Lopez APRN.[address] [place] [address] 3 mo F/U-IVIG(slow infusion per pt request/B12 +/-IV iron lab 11/29/2024 9:30 AM EDT Infusion Center Hematology/Oncology [address] [place] [address] [place] [address] 3 mo F/U-IVIG(slow infusion per pt request/B12 +/-IV iron lab documented as of this encounter Visit Diagnoses Not on filedocumented in this encounter Care Teams Sales Attendant Relationship Specialty Start Date End Date Manuel Klein MD PCP - General Family Medicine 02/27/22 Manuel Klein MD Referring Family Medicine 02/12/22 Manuel Klein MD [address] [place] [address] Referring Family Medicine 07/06/24 documented as of this encounter
--- OUTSIDE RECORDS SUMMARY | 2024-10-24 10:13 | XMS_ITS | Encounter Summary ---
Author Organization [facility] Address [address] [place] [address] Care Team Providers Care Sustainability Manager Name Role Phone Manuel Klein MD Unavailable [phone] Manuel Klein MD Primary Care Provider +-4 Manuel Klein MD Unavailable [phone] Source Comments In the event this information is protected by the Federal Confidentiality of Alcohol and Drug AbusePatient Records regulations: The Federal rules restrict any use of the information to criminally investigate or prosecute any alcohol or drug abuse patient.[facility] Reason for Visit * Reason Onset Date Comments SPP Inflammatory Conditions - Medication Refill 09/20/2024 Benlysta Encounter Details Date Type Department Care Team (Latest Contact Info) Description 09/20/2024 Specialty Pharmacy [facility] [address] [place], [place] [address] [place] [id number] Aidee Quintanilla RPh SPP Inflammatory Conditions - Medication Refill (Benlysta) Social History Tobacco Use Types Packs/Day Years [...] is lower risk 4 09/24/2022 Data from: https://www.neighborhoodatlas.medicine.[facility]/. Last address used for calculation [address] 09/24/2022 Comments No Sex and Gender [...] Assessment Author Yes 12/25/2014 11:14 AM EDT Joanna De Jesusra * Do you have difficulty dressing or bathing? Answer Date of Assessment Author Yes 12/25/2014 11:14 AM EDT Joanna De Jesusra * Because of a physical, mental, or [...] Chichi De Jesus documented in this encounter Progress Notes * Luna Emanuel - 09/20/2024 11:49 AM EDT Unable to reach patient for refill of Benlysta after four call attempts. Pt last refilled medication on 08/24/24. Will schedule future follow-up in 2 weeks from today's date. Office will be updated if future attempts are unsuccessful. Luna Emanuel CPhT, Is Consultant, Inflammatory/Allergy [facility] P: [phone] F: [phone] * Luna Emanuel - 09/20/2024 11:49 AM EDT Discontinuation Assessment completed for the medication Benlysta . Patient no longer requires [facility] Patient Management Program Services at this time for this medication. Patient states she is currently receiving infusions. Luna Emanuel CPhT, Is Consultant, Inflammatory/Allergy [facility] P: [phone] F: [phone] Cosigned by Aidee Quintanilla RPh at 10/17/2024 3:13 PM EDT Associated attestation - Aidee Quintanilla RPh - 10/17/2024 3:13 PM EDT Aidee Quintanilla, PharmD Clinical Pharmacist, [employer] [facility] ; Pool: P [facility] Pool #: [id number] documented in this encounter Plan of Treatment Upcoming Encounters Date Type Department Care Team (Latest Contact Info) Description 11/01/2024 9:00 AM EDT Infusion Center Hematology/Oncology [facility] [place] [address] IVIG q 4 weeks with B 12 inj and lab 11/29/2024 8:45 AM EDT Office Visit [facility] [address] [place] [address] 3 mo F/U-IVIG(slow infusion per pt request/B12 +/-IV iron lab 11/29/2024 9:00 AM EDT Visit (SP) Office Hematology/Oncology [address] [place] [address] Fara Lopez APRN.ENVIRONMENTAL AUDITOR [address] [place] [address] 3 mo F/U-IVIG(slow infusion per pt request/B12 +/-IV iron lab 11/29/2024 9:30 AM EDT Infusion Center Hematology/Oncology [address] [facility] [place] [address] 3 mo F/U-IVIG(slow infusion per pt request/B12 +/-IV iron lab documented as of this encounter Visit Diagnoses Diagnosis Systemic lupus erythematosus with other organ involvement (HCC)- Primary documented in this encounter Care Teams Sustainability Manager Relationship Specialty Start Date End Date Manuel Klein MD PCP - General Family Medicine 02/27/22 Manuel Klein MD Referring Family Medicine 02/12/22 Manuel Klein MD [address] [place] [address] Referring Family Medicine 07/06/24 documented as of this encounter
--- OUTSIDE RECORDS SUMMARY | 2024-10-24 10:13 | XMS_ITS | Encounter Summary ---
Author Organization [facility] Address [address] [place] [address] Care Team Providers Care Certified Retinal Angiographer Name Role Phone Manuel Klein MD Unavailable [phone] Manuel Klein MD Primary Care Provider +-4 Manuel Klein MD Unavailable Source Comments In the event this information is protected by the Federal Confidentiality of Alcohol and Drug AbusePatient Records regulations: The Federal rules restrict any use of the information to criminally investigate or prosecute any alcohol or drug abuse patient.[facility] Encounter Details Date Type Department Care Team (Late st Contact Info) Description 07/06/2024 Patient Msg Referring Physician [address] [place] [phone] Provider, Ccf Appointment Social History Tobacco Use Types Packs/Day [...] is lower risk 4 09/24/2022 Data from: https://www.neighborhoodatlas.[facility].edu/. Last address used for calculation [address] 09/24/2022 Comments No Sex and Gender [...] 9:00 AM EDT Infusion Center Hematology/Oncology [address] [place] [address] IVIG q 4 weeks with B 12 inj and lab 11/29/2024 8:45 AM EDT Office Visit [facility] [address] [address] 3 mo F/U-IVIG(slow infusion per pt request/B12 +/-IV iron lab 11/29/2024 9:00 AM EDT Visit (SP) Office Hematology/Oncology [address] [place] [address] [place] [address] Fara Lopez APRN.HEALTH ANALYTICS CONSULTANT [address] [place] [address] [place] [address] 3 mo F/U-IVIG(slow infusion per pt request/B12 +/-IV iron lab 11/29/2024 9:30 AM EDT Infusion Center Hematology/Oncology [address] [place] [address] [place] [address] 3 mo F/U-IVIG(slow infusion per pt request/B12 +/-IV iron lab documented as of this encounter Visit Diagnoses Not on filedocumented in this encounter Care Teams Certified Retinal Angiographer Relationship Specialty Start Date End Date Manuel Klein MD PCP - General Family Medicine 02/27/22 Manuel Klein MD Referring Family Medicine 02/12/22 Manuel Klein MD [address] [place] [address] Referring Family Medicine 07/06/24 documented as of this encounter
--- OUTSIDE RECORDS SUMMARY | 2024-10-24 10:13 | XMS_ITS | Encounter Summary ---
Author Organization [facility] Address [address] [place] [address] Care Team Providers Care Side Stitching Machine Operator Name Role Phone Manuel Klein MD Unavailable [phone] Manuel Klein MD Primary Care Provider +-4 Manuel Klein MD Unavailable [phone] Source Comments In the event this information is protected by the Federal Confidentiality of Alcohol and Drug AbusePatient Records regulations: The Federal rules restrict any use of the information to criminally investigate or prosecute any alcohol or drug abuse patient.[facility] Reason for Referral * Consult, Test, Treat (Routine) - Authorized Specialty Diagnoses / Procedures Referred By Contac t Referred To Contact Diagnoses EDS (Peter-Danlos syndrome) (HCC) Procedures CONSULT TO MEDICAL GENETICS - GENERAL OFFICE/OUTPATIENT [facility] 60 MINUTES MEDICAL GENETICS COUNSELING EACH 30 MINUTES Sandra Park MD [address] [place] [address] Phone: tel: fax: [employer] [address] [place] [address] Referral ID Status Reason Start Date Expiration Date Visits Requested Visits Authorized [id number] Authorized PCP Requested Referral Auto-Generate d Referral 02/20/2024 02/19/2025 1 1 Encounter Details Date Type Department Care Team (Late st Contact Info) Description 02/18/2024 Get Medical Advice Rheumatology [address] [place] [place] [address] Sandra Park MD [address] [place] [address] Referral Social History Tobacco Use Types Packs/Day Years [...] risk 4 09/24/2022 Data from: https://www.neighborhoodatlas.medicine.[facility].edu/. Last address used for calculation [address] 09/24/2022 Comments No Sex and Gender Information [...] Telephone Encounter - Sandra Park MD - 02/20/2024 9:00 AM EDT Please call patient. Thank you for the update. Sorry to hear about your discomfort. Placed referrals to genetics. May schedule at your convenience. Please schedule follow up in rheumatology too. Office will be happy to assist with scheduling. Hope you feel better soon! Warm regards, :) documented in this encounter Plan of Treatment Upcoming Encounters Date Type Department Care Team (Latest Contact Info) Description 11/01/2024 9:00 AM EDT Infusion Center Hematology/Oncology [place] [address] IVIG q 4 weeks with B 12 inj and lab 11/29/2024 8:45 AM EDT Office Visit [facility] Laboratory [address] [place] [address] 3 mo F/U-IVIG(slow infusion per pt request/B12 +/-IV iron lab 11/29/2024 9:00 AM EDT Visit (SP) Office Hematology/Oncology [address] [place] [address] Fara Lopez APRN.HOME WORKER [address] [place] [address] 3 mo F/U-IVIG(slow infusion per pt request/B12 +/-IV iron lab 11/29/2024 9:30 AM EDT Infusion Center Hematology/Oncology [place] [address] 3 mo F/U-IVIG(slow infusion per pt request/B12 +/-IV iron lab documented as of this encounter Visit Diagnoses Diagnosis EDS (Peter-Danlos syndrome) ([facility])- Primary Peter-Danlos syndrome documented in this encounter Care Teams Side Stitching Machine Operator Relationship Specialty Start Date End Date Manuel Klein MD PCP - General Family Medicine 02/27/22 Manuel Klein MD Referring Family Medicine 02/12/22 Manuel Klein MD [address] [place] [address] Referring Family Medicine 07/06/24 documented as of this encounter
--- OUTSIDE RECORDS SUMMARY | 2024-10-24 10:13 | XMS_ITS | Encounter Summary ---
Author Organization [facility] Address [address] [place] [address] Care Team Providers Care Weaving Machine Operator Name Role Phone Manuel Klein MD Unavailable [phone] Manuel Klein MD Primary Care Provider +-4 Manuel Klein MD Unavailable [phone] Source Comments In the event this information is protected by the Federal Confidentiality of Alcohol and Drug AbusePatient Records regulations: The Federal rules restrict any use of the information to criminally investigate or prosecute any alcohol or drug abuse patient.[facility] Encounter Details Date Type Department Care Team (Late st Contact Info) Description 02/23/2024 Patient Msg Rheumatology [address] [place], [place] [id number] Sandra Park MD [address] [place] [address] Appointment Request Social History Tobacco Use Types Packs/Day [...] is lower risk 4 09/24/2022 Data from: https://www.neighborhoodatlas.medicine.[facility]/. Last address used for calculation [address] 09/24/2022 Comments No Sex and Gender [...] Contact Info) Description 11/01/2024 9:00 AM EDT [facility] Center Hematology/Oncology [address] [place] [address] [place] [address] IVIG q 4 weeks with B 12 inj and lab 11/29/2024 8:45 AM EDT Office Visit [facility] Laboratory [address] [place] [address] [place] [address] 3 mo F/U-IVIG(slow infusion per pt request/B12 +/-IV iron lab 11/29/2024 9:00 AM EDT Visit (SP) Office Hematology/Oncology [address] [place] [address] Fara Lopez APRN.INTERIOR DESIGN COORDINATOR [address] [place] [address] 3 mo F/U-IVIG(slow infusion per pt request/B12 +/-IV iron lab 11/29/2024 9:30 AM EDT Infusion Center Hematology/Oncology [address] [place] [address] 3 mo F/U-IVIG(slow infusion per pt request/B12 +/-IV iron lab documented as of this encounter Visit Diagnoses Not on filedocumented in this encounter Care Teams Weaving Machine Operator Relationship Specialty Start Date End Date Manuel Klein MD PCP - General Family Medicine 02/27/22 Manuel Klein MD Referring Family Medicine 02/12/22 Manuel Klein MD [address] [place] [address] Referring Family Medicine 07/06/24 documented as of this encounter
--- OUTSIDE RECORDS SUMMARY | 2024-10-24 10:13 | XMS_ITS | Encounter Summary ---
Author Organization [facility] Address [address] [place] [address] Care Team Providers Care Specifications Writer Name Role Phone Manuel Klein MD Unavailable [phone] Manuel lKein MD Primary Care Provider +-4 Manuel Klein MD Unavailable [phone] Source Comments In the event this information is protected by the Federal Confidentiality of Alcohol and Drug AbusePatient Records regulations: The Federal rules restrict any use of the information to criminally investigate or prosecute any alcohol or drug abuse patient.[facility] Encounter Details Date Type Department Care Team (Late st Contact Info) Description 02/23/2024 Patient Msg Rheumatology [address] [place], [place] [id number] Sandra Park MD [address] [place] [address] Appointment Request Social History Tobacco [...] is lower risk 4 09/24/2022 Data from: https://www.neighborhoodatlas.medicine.[facility]/. Last address used for calculation [address] 09/24/2022 Comments No Sex and Gender [...] Contact Info) Description 11/01/2024 9:00 AM EDT [facility] Center Hematology/Oncology [address] [place] [address] [place] [address] IVIG q 4 weeks with B 12 inj and lab 11/29/2024 8:45 AM EDT Office Visit [facility] Laboratory [address] [place] [address] [place] [address] 3 mo F/U-IVIG(slow infusion per pt request/B12 +/-IV iron lab 11/29/2024 9:00 AM EDT Visit (SP) Office Hematology/Oncology [address] [place] [address] Fara Lopez APRN.GLOBAL MARKETING SPECIALIST [address] [place] [address] 3 mo F/U-IVIG(slow infusion per pt request/B12 +/-IV iron lab 11/29/2024 9:30 AM EDT Infusion Center Hematology/Oncology [address] [place] [address] 3 mo F/U-IVIG(slow infusion per pt request/B12 +/-IV iron lab documented as of this encounter Visit Diagnoses Not on filedocumented in this encounter Care Teams Specifications Writer Relationship Specialty Start Date End Date Manuel Klein MD PCP - General Family Medicine 02/27/22 Manuel Klein MD Referring Family Medicine 02/12/22 Manuel Klein MD [address] [place] [address] Referring Family Medicine 07/06/24 documented as of this encounter
--- OUTSIDE RECORDS SUMMARY | 2024-10-24 10:13 | XMS_ITS | Encounter Summary ---
Author Organization [facility] Address [address] [place] [address] Care Team Providers Care Home Care Manager Name Role Phone Manuel Klein MD Unavailable [phone] Manuel Klein MD Primary Care Provider +-4 Manuel Klein MD Unavailable [phone] Source Comments In the event this information is protected by the Federal Confidentiality of Alcohol and Drug AbusePatient Records regulations: The Federal rules restrict any use of the information to criminally investigate or prosecute any alcohol or drug abuse patient.[facility] Encounter Details Date Type Department Care Team (Late st Contact Info) Description 12/09/2023 Get Medical Advice Infectious Disease [address] [place] [address] Tiffany Head DO [address] [place] [address] Infection Social History Tobacco Use Types Packs/Day Years Used Date Smoking Tobacco: Every Day Cigarettes 1 20 Smokeless Tobacco: Never Alcohol Use Standard Drinks/Week Comments No 0 (1 standard drink = 0.6 oz pur e alcohol) PHQ-2 Answer Date Recorded PHQ-2 score 1 09/08/2023 Area Deprivation Index Answer Date Constantino rded National Score (1-100), lower number is lower ri sk 59 09/24/2022 State Score (1-10), lower number is lower risk 4 09/24/2022 Data from: https://www.neighborhoodatlas.medicine.[facility]/. Last address used for calculation [address] 09/24/2022 Comments No Sex and Gender [...] Contact Info) Description 11/01/2024 9:00 AM EDT [facility] Center Hematology/Oncology [address] [place] [address] IVIG q 4 weeks with B 12 inj and lab 11/29/2024 8:45 AM EDT Office Visit [facility] Laboratory [address] [place] [address] 3 mo F/U-IVIG(slow infusion per pt request/B12 +/-IV iron lab 11/29/2024 9:00 AM EDT Visit (SP) Office Hematology/Oncology [address] [place] [address] Fara Lopez APRN.TECHNICIAN AUTOMATIC [address] [place] [address] 3 mo F/U-IVIG(slow infusion per pt request/B12 +/-IV iron lab 11/29/2024 9:30 AM EDT Infusion Center Hematology/Oncology [address] [place] [address] 3 mo F/U-IVIG(slow infusion per pt request/B12 +/-IV iron lab documented as of this encounter Visit Diagnoses Not on filedocumented in this encounter Care Teams Home Care Manager Relationship Specialty Start Date End Date Manuel Klein MD PCP - General Family Medicine 02/27/22 Manuel Klein MD Referring Family Medicine 02/12/22 Manuel Klein MD [address] [facility] [place] [address] Referring Family Medicine 07/06/24 documented as of this encounter
--- OUTSIDE RECORDS SUMMARY | 2024-10-24 10:13 | XMS_ITS | Clinical Summary ---
Author Organization [facility] Address [address] [place] [address] Care Team Providers Care Air Intelligence Specialist Name Role Phone Manuel Klein MD Unavailable [phone] Manuel Klein MD Primary Care Provider [phone] Manuel Klein MD Unavailable [phone] Allergies Active Allergy Reactions Criticality Noted Date Comments Sulfamethoxazole Other: See Comments 05/31/2014 CAUSED ENLARGED LYMPH NODES Clindamycin Unknown Low 03/04/2022 Patient states it was a long time ago and she did not have a severe reaction. She does not believe she is allergic, she just thinks she just experienced side effects. Codeine Other: See Comments 05/31/2014 Make her feel Jittery. OTHERWISE, NO SOB/WHEEZING, and NO DYSPHAGIA, NO URTICARIA, NO ANGIOEDEMA Doxycycline Other: See Comments Low 01/19/2022 Patient states it was a long time ago and she did not have a severe reaction. She does not believe she is allergic, she just thinks she just experienced side effects. Latex Rash Low 05/31/2014 Patient states it was a long time ago and she did not have a severe reaction. She does not believe she is allergic, she just thinks she just experienced side effects. Sulfamethoxazole-Trimetho prim Swelling Low 03/04/2022 Patient states it was a long time ago and she did not have a severe reaction. She does not believe she is allergic, she just thinks she just experienced side effects. Trimethoprim Other: See Comments Low 01/19/2022 Patient states it was a long time ago and she did not have a severe reaction. She does not believe she is allergic, she just thinks she just experienced side effects. Medications acetaminophen (TYLENOL) 500 mg tablet Take 1,000 mg by mouth. Active aspirin 81 mg chewable tablet Take 81 mg by mouth. Active ibuprofen (MOTRIN) 200 mg tablet Take 600 mg by mouth. Active CPAP/BIPAP/OTHER Indications:JOSE RAFAEL (obstructive sleep apnea) Type .CPAPSettings into a note to see current settings/supplie s/DME information. 1 Each 022 2049 Active metoprolol tartrate, short acting, (LOPRESSOR) 50 mg tablet Take 100 mg by mouth two times a day. 023 Active pregabalin (LYRICA) 75 mg capsuleIndicatio ns:Fibromyalgia take 1 capsule by mouth three times a day 270 capsule 3 023 Active hydrOXYchloroQUI NE (PLAQUENIL) 200 mg tabletIndication s:CHRISTIAN positive,Other systemic lupus erythematosus with other organ involvement (HCC) TAKE 1 TAB TWICE A DAY WITH FOOD *SUNSCREEN WHILE OUTDOORS/OPHTHAM OLOGY EVERY 6-12 MONTHS WHILE ON* 60 tablet 11 024 Active azaTHIOprine (IMURAN) 50 mg tabletIndication s:Other systemic lupus erythematosus with other organ involvement (HCC),Encounter for fpc 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 TAKE 3 TABLETS BY MOUTH DAILY WITH FOOD. HOLD IF ON ANTIBIOTICS OR ILL. 270 tablet 1 024 Active folic acid 1 mg tabletIndication s:Vitamin B12 deficiency Take 1 tablet by mouth once daily. 90 tablet 3 024 Active diphenhydrAMINE- maalox-lidocaine (BMX 1:1:1) 1:1:1 liqd Take 5 mL by mouth every 6 hours as needed. 500 mL 1 025 Active TRULICITY 0.75 mg/0.5 mL pen injector Inject 0.75 mg subcutaneously one time a week. Per PCP 025 Active belimumab (BENLYSTA) 200 mg/mL auto-injectorInd ications:Other systemic lupus erythematosus with other organ involvement (HCC) Inject 200mg (1 pen) subcutaneously once weekly 12 mL 3 025 Active ergocalciferol 50,000 unit capsule (VITAMIN D2, DRISDOL)Indicati ons:Vitamin D deficiency Take 1cap by mouth 3times a week x 10weeks, then once a week with food. 34 capsule 1 025 Active predniSONE (DELTASONE) 10 mg tabletIndication s:Other systemic lupus erythematosus with other organ involvement (HCC) Take 40mg daily x 3, decrease by 5mg every 3days until taking 10mg daily with food thereafter (no oral nsaids) 120 tablet 1 025 Active predniSONE (DELTASONE) 10 mg tabletIndication s:Other systemic lupus erythematosus with other organ involvement (HCC) Take 40mg daily x 3, decrease by 5mg every 3days until taking 10mg daily with food thereafter (no oral nsaids) 120 tablet 1 025 2024 Discontinued ergocalciferol 50,000 unit capsule (VITAMIN D2, DRISDOL)Indicati ons:Vitamin D deficiency Take 1cap by mouth 3times a week x 10weeks, then once a week with food. 34 capsule 1 025 2024 Discontinued predniSONE (DELTASONE) 10 mg tabletIndication s:Other systemic lupus erythematosus with other organ involvement (HCC) TAKE 1 TABLET BY MOUTH EVERY DAY WITH FOOD NO ORAL NSAIDS 30 tablet 5 025 2024 Discontinued(C ourse of therapy completed) Active Problems Problem Noted Date Diagnosed Date Iron deficiency anemia 06/16/2024 Hypogammaglobulinemia 04/01/2024 Frequent infections 04/01/2024 History of vitamin D deficiency 10/05/2023 Chronic fatigue and malaise 06/10/2023 Bilateral wrist pain 02/04/2023 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 02/04/2023 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 02/04 Excessive and frequent menstruation with irregul ar cycle 09/24/2022 03/10/2023 Obesity, Class III, BMI >= 40 09/07/2022 Long-term use of high-risk medication 06/15/2022 CHRISTIAN positive 06/15/2022 JOSE RAFAEL (obstructive sleep apnea) 05/20/2022 Somnolence, daytime 05/20/2022 Anemia, unspecified 03/11/2022 03/10/2023 Megaloblastic anemia due to vitamin B12 deficien cy 03/04/2022 Discoid lupus erythematosus 02/14/2022 Fibromyalgia 10/24/2021 Systemic lupus erythematosus 10/24/2021 Vitamin D deficiency 03/06/2021 Elevated sed rate 03/05/2021 High total serum IgM 03/05/2021 Secondary osteoarthritis of multiple sites 03/05 Rash and nonspecific skin eruption 03/05/2021 Swelling of lymph nodes 03/05/2021 Chronic pain of toes of both feet 03/05/2021 Bilateral leg weakness 03/05/2021 Hair loss 03/05/2021 Family history of Crohn's disease 03/05/2021 Long-term use of Plaquenil 03/05/2021 Bilateral sacroiliitis 09/13/2015 Vitamin B12 deficiency 05/31/2014 Hyperlipidemia 05/31/2014 Ataxia 05/31/2014 Chronic bilateral low back pain with bilateral s ciatica 05/31/2014 Depression, recurrent Chronic pain syndrome Pain, hip Obesity Tobacco use disorder Resolved Problems Problem Noted Date Diagnosed Date Resolved Date Obesity, Class II, BMI 35-39.9 03/09/2022 03/10/2023 Obesity (BMI 30-39.9) 05/31/20142016 Encounters Date Type Department Care Team Description 10/19/2024 2:00 PM EDT Infusion Center Hematology/Oncolo gy [address] [place] [address] [place] [address] Other systemic lupus erythematosus with other organ involvement (HCC) (Primary Dx) 10/07/2024 8:00 AM EDT [facility] Rheumatology [address] [place] [address] Sandra Park MD Other systemic lupus erythematosus with other organ involvement (HCC) (Primary Dx); Vitamin D deficiency; Fibromyalgia; CHRISTIAN positive; Elevated sed rate; Vitamin B12 deficiency; Secondary osteoarthritis of multiple sites; Chronic bilateral low back pain with bilateral sciatica; Chronic pain of toes of both feet; Long-term use of high-risk medication; FPC 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; Bilateral hand pain; Family history of Crohn's disease; 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; Bilateral wrist pain 10/06/2024 Telephone Rheumatology [address] [place] [address] Sandra Park MD Results 2024 2:00 PM EDT Infusion Center Hematology/Oncolo gy [address] [place] [place] [address] Other systemic lupus erythematosus with other organ involvement (HCC) (Primary Dx) 10/02/2024 9:00 AM EDT Infusion Center Hematology/[facility] gy [address] [place] [address] Frequent infections (Primary Dx); Hypogammaglobulinemia (HCC); Bilateral leg weakness; Discoid lupus erythematosus; Elevated sed rate; Megaloblastic anemia due to vitamin B12 deficiency; Elevated LFTs; Anemia of chronic disease; Elevated C-reactive protein (CRP); Vitamin D deficiency 09/26/2024 Orders Only Hematology/Oncol[facility] gy [address] [facility] [address] [place], [place] [id number] Fara Lopez APRN.MACHINING SUPERVISOR 09/26/2024 Orders Only Hematology/Oncolo gy [address] [place] [address] [place] [address] Jose Cho MD 09/26/2024 Orders Only Hematology/Oncolo gy [address] [facility] [place] [address] Rebekah Rojas APRN.MACHINING SUPERVISOR 09/20/2024 Specialty Pharmacy [facility] [address] [place], [place] [id number] Aidee Quintanilla, FESTUS SPP Inflammatory Conditions - Medication Refill (Benlysta) 09/19/2024 10:30 AM EDT Office Visit EDUARDO MONTERO [address] [place] [phone] Luann Lance MD Generalized articular hypermobility (Primary Dx); Family history of mild aortic dilation 09/19/2024 10:00 AM EDT Office Visit BRANDAN MONTERO [address] [place] [phone] Deborah Arroyo LGC Fibromyalgia (Primary Dx); Family history of disease of aorta; Family history of cancer 09/18/2024 1:00 PM EDT Infusion Center Hematology/Oncolo gy [address] [facility] [place] [address] Other systemic lupus erythematosus with other organ involvement (HCC) (Primary Dx) 09/18/2024 Telephone Cancer Appts [address] [place] [address] Jose Cho MD Future Appointment 09/18/2024 Refill [facility]umat[facility] [address] [facility] [place] [address] Sandra Park MD Refill Request 09/18/2024 Get Medical Advice Rheumatology [address] [place] [address] Sandra Park MD Benlysta infusion 09/18/2024 Travel 09/13/2024 Telephone Hematology/Oncolo [address] [place] [address] Katherin Schneider RN Medication Question (Benlysta and IVIG ) 09/07/2024 Results Follow-Up Hematology/Oncolo [address] [place] [address] Fara Lopez APRN.MACHINING SUPERVISOR Results 09/06/2024 9:30 AM EDT Infusion Center Hematology/Onc[address] [place] [address] Frequent infections (Primary Dx); Hypogammaglobulinemia (HCC); Bilateral leg weakness; Discoid lupus erythematosus; Elevated sed rate; Megaloblastic anemia due to vitamin B12 deficiency 09/06/2024 9:00 AM EDT Visit (SP) Office Hematology/Onc[address] [place] [address] Fara Lopez APRN.MACHINING SUPERVISOR Hypogammaglobulinemia (HCC) (Primary Dx); Vitamin B12 deficiency; Other iron deficiency anemia; Megaloblastic anemia due to vitamin B12 deficiency 09/06/2024 Telephone Hematology/On[address] [place] [address] Basia Samuel RN Medication Preauthorization; Appointment 09/06/2024 Travel 09/01/2024 Refill Rheumatology [address] [place] [address] Sandra Park MD Refill Request 08/28/2024 Telephone Hematology/Oncolo gy [address] [facility] [place] [address] Fara Lopez APRN.MACHINING SUPERVISOR Lab Orders 08/17/2024 Specialty Pharmacy [facility] [address] [place] [id number] Aidee Quintanilla RPh SPP Inflammatory Conditions - Medication Refill (Benlysta) 08/08/2024 9:30 AM EDT Infusion Center Hematology/Oncol[facility] gy [address] [place] [address] Elevated sed rate (Primary Dx); Megaloblastic anemia due to vitamin B12 deficiency; Frequent infections; Hypogammaglobulinemia (HCC); Bilateral leg weakness; Discoid lupus erythematosus 08/08/2024 Telephone Hematology/Oncolo gy [address] [place] [address] [place] [address] Basia Samuel RN Patient Question 08/07/2024 Orders Only Hematology/Oncolo gy [address] [place] [address] [place] [address] Jose Cho MD 08/06/2024 Travel 08/03/2024 Refill Otolaryngology [address] [place] [address] Judah Gasca PA-C Med Change Request 07/25/2024 Specialty Pharmacy [facility] [address] [place] [address] Aidee Quintanilla RPh SPP Inflammatory Conditions - Medication Refill (Benlysta) from Last 3 Months Immunizations Immunization Administration Dates Next Due COVID-19 vaccine, age 12+ yr ([employer] COMIRNATY) 02/23/2023 Family History Medical History Relation Comments Cancer Father stomach Crohn's [Other] Mother Relation Status Comments Daughter 1 Alive Daughter 2 Alive Father (Age 57) stomach cancer Mother Alive (Age 55) crohn's disease Sister Alive Son Alive Social History Tobacco Use Types Packs/Day Years Used Date Smoking Tobacco: Every Day Cigarettes 1 20 Smokeless Tobacco: Never Tobacco Cessation:Ready to Q uit: Not Asked; Counseling Given: Not Answered Alcohol Use Standard Drinks/Week Comments No 0 (1 standard drink = 0.6 oz pur e alcohol) PHQ-2 Answer Date Recorded PHQ-2 score 1 12/27/2023 Area Deprivation Index Answer Date Constantino rded National Score (1-100), lower number is lower ri sk 59 09/24/2022 State Score (1-10), lower number is lower risk 4 09/24/2022 Data from: https://www.neighborhoodatlas.[facility].edu/. Last address used for calculation [address] 09/24/2022 Comments No Sex and Gender Information Value Date Recorded Sex Assigned at Not on file Legal Sex Female 2:51 PM EST Gender Identity Not on file Sexual Orientation Not on file Last Filed Vital Signs Vital Sign Reading Time Taken Comments Blood Pressure 113/78 2024 2:16 PM EDT Pulse 85 2024 2:16 PM EDT Temperature 36.4 C (97.6 F) 2024 2:16 PM EDT Respiratory Rate 16 2024 2:16 PM EDT Oxygen Saturation 96% 2024 2:16 PM EDT Inhaled Oxygen Concentration - - Weight 127.5 kg (281 lb 1.4 oz) 2024 2:16 PM EDT Height 170.2 cm (5' 7.01 ) 09/06/2024 8:43 AM ED T Body Mass Index 44.01 09/06/2024 8:43 AM EDT Plan of Treatment Upcoming Encounters Date Type Department Care Team (Latest Contact Info) Description 11/01/2024 9:00 AM EDT Infusion Center Hematology/Oncology [facility] [place] [address] IVIG q 4 weeks with B 12 inj and lab 11/29/2024 8:45 AM EDT Office Visit [facility] Laboratory [address] [place] [address] 3 mo F/U-IVIG(slow infusion per pt request/B12 +/-IV iron lab 11/29/2024 9:00 AM EDT Visit (SP) Office Hematology/Oncology [facility] [place] [address] Fara Lopez, MUCK FARMER.MACHINING SUPERVISOR [address] [place] [address] 3 mo F/U-IVIG(slow infusion per pt request/B12 +/-IV iron lab 11/29/2024 9:30 AM EDT Infusion Center Hematology/Oncology [address] [facility] [place] [address] 3 mo F/U-IVIG(slow infusion per pt request/B12 +/-IV iron lab Health Maintenance Due Date Last Done Comments HPV Vaccine: Recommended Bas ed On Risk 1980 Cervical Cancer Screening 10/05/1991 Anxiety Screening 1998 HIV Screening 1998 DTaP,Tdap,Td Vaccine (1 - Tdap) 10/05/1999 Hepatitis B Vaccine (1 of 3 - 19+ 3-dose series) 10/05/1999 Pneumococcal Vaccine (1 of 2 - PCV) 10/05/1999 Shingrix Vaccine (1 of 2) 10/05/1999 Mammogram Screening 2020 Covid-19 Vaccine (6 - 2023-2 5 season) 2024 02/23/2023, 02/08/2022, 05/26/2021, Additional history exists Influenza Vaccine (Season Ended) 2025 Hepatitis C Screening Completed 03/05/2021 Procedures Procedure Name Priority Date/Time Associated Diagnosis Comments VITAMIN D 25 HYDROXY Routine 10/02/2024 9:03 AM EDT Vitamin D deficiency C-REACTIVE PROTEIN (CRP) Routine 10/02/2024 9:03 AM EDT Elevated sed rate Elevated C-reactive protein (CRP) SED RATE WESTERGREN Routine 10/02/2024 9 :03 AM EDT Elevated sed rate Elevated C-reactive protein (CRP) COMPLETE BLOOD COUNT Routine 10/02/2024 9:03 AM EDT Anemia of chronic disease COMPREHENSIVE METABOLIC PANEL Routine 10/02/2024 9:03 AM EDT Elevated LFTs DNA EXTRACTION BLOOD Routine 09/19/2024 2:55 PM EDT Generalized articular hypermobility Family history of mild aortic dilation IMMUNOGLOBULINS MARGIE Routine 09/06/2024 9 :14 AM EDT Hypogammaglobuline hi (HCC) VITAMIN B12 BLOOD Routine 08/29/2024 10: 32 AM EDT Vitamin B12 deficiency Other iron deficiency anemia Hypogammaglobuline hi (HCC) FOLATE SERUM Routine 08/29/2024 10:32 AM EDT Vitamin B12 deficiency Other iron deficiency anemia Hypogammaglobuline hi (HCC) IRON + TIBC Routine 08/29/2024 10:32 AM EDT Vitamin B12 deficiency Other iron deficiency anemia Hypogammaglobuline hi (HCC) FERRITIN BLD Routine 08/29/2024 10:32 AM EDT Vitamin B12 deficiency Other iron deficiency anemia Hypogammaglobuline hi (HCC) IGG Routine 08/29/2024 10:32 AM EDT Vitamin B12 deficiency Other iron deficiency anemia Hypogammaglobuline hi (HCC) COMPREHENSIVE METABOLIC PANEL Routine 08/29/2024 10:32 AM EDT Vitamin B12 deficiency Other iron deficiency anemia Hypogammaglobuline hi (HCC) CBC + DIFF Routine 08/29/2024 10:32 AM EDT Vitamin B12 deficiency Other iron deficiency anemia Hypogammaglobuline hi (HCC) *HEP C AB Routine 03/05/2021 2:23 PM EDT Elevated LFTs from Last 3 Months or Most Recently Relevant to Health Maintenance Results * (ABNORMAL) VITAMIN D 25 HYDROXY (10/02/2024 9:03 AM EDT) [facility] Vitamin D 25 Hydroxy 30.9(L) 31.0 - 80.0 ng/mL 10/02/2024 6:39 PM EDT [facility] Comment: Classification of 25 [place] Vitamin D status: Deficiency/Insufficiency: < or = 30 ng/ml. Sufficiency/Optimal Levels: 31-80 ng/mL Toxicity: > 100 ng/mL. Test performed by chemiluminescent immunoassay. Blood BLOOD SPECIMEN / Unknown Venipuncture / Unknown 10/02/2024 9:03 AM EDT 10/02/2024 9:21 AM EDT Narrative [facility] - 10/02/2024 6:39 PM EDT The reference range interval was based on an analysis of samples from healthy adults and may not pertain to children from 0-18 years old. us Sandra Park MD LABORATORY Final Result Performing Organization Address City/[facility]/ZIP Co de Phone Number [facility] [address] [place] [address], [place] * (ABNORMAL) SEDIMENTATION RATE, WESTERGREN (10/02/2024 9:03 AM EDT) Sed Rate, Westergren 28(H) 0 - 20 mm/hr 10/02/2024 3:15 PM EDT [facility] Blood BLOOD SPECIMEN / Unknown Venipuncture / Unknown 10/02/2024 9:03 AM EDT 10/02/2024 9:21 AM EDT us Sandra Park MD LABORATORY Final Result Performing Organization Address [facility] Co de Phone Number [facility] [address] [place] [address], [place] * (ABNORMAL) COMPREHENSIVE METABOLIC PANEL (10/02/2024 9:03 AM EDT) Only the most recent of2 resultswithin the time period is included. Protein, Total 6.8 6.3 - 8.0 g/dL 10/02/2024 11:53 AM EDT [facility] Albumin 3.9 3.9 - 4.9 g/dL 10/02/2024 11:53 AM EDT [facility] Calcium, Total 9.6 8.5 - 10.2 mg/dL 10/02/2024 11:[address] [facility] Bilirubin, Total 0.2 0.2 - 1.3 mg/dL 10/02/2024 11:[address] [facility] Alkaline Phosphatase 61 34 - 123 U/L 10/02/2024 11:[address] [facility] AST 18 13 - 35 U/L 10/02/2024 11:[address] [facility] ALT 41(H) 7 - 38 U/L 10/02/2024 11:[address] [facility] Glucose 216(H) 74 - 99 mg/dL 10/02/2024 11:[address] [facility] Comment: The [place] Diabetes Association (ADA) provides guidance for cutoff [...] Standards of Medical Care in Diabetes 2016, [place] [employer]. Diabetes Care. 2016.39(Suppl 1). BUN 19 7 - 21 mg/dL 10/02/2024 11:[address] [facility] Creatinine 0.59 0.58 - 0.96 mg/dL 10/02/2024 11:[address] [facility] Sodium 141 136 - 144 mmol/L 10/02/2024 11:[address] [facility] Potassium 4.1 3.7 - 5.1 mmol/L 10/02/2024 11:[address] [facility] Chloride 107 98 - 107 mmol/L 10/02/2024 11:[address] [facility] CO2 20(L) 22 - 30 mmol/L 10/02/2024 11:53 AM EDT [facility] Anion Gap 14 8 - 15 mmol/L 10/02/2024 11:53 AM EDT [facility] Estimated Glomerular Filtration Rate 115 >=60 mL/min/1. 73m 10/02/2024 11:53 AM EDT [facility] Comment:Estimated Glomerular Filtration Rate (eGFR) is calculated using the 2020 CKD-EPI creatinine equation. This equation utilizes serum creatinine, sex, and age as parameters. The creatinine assay has traceable calibration to isotope dilution- mass spectrometry. Refer to KDIGO guidelines for clinical interpretation. In patients with unstable renal function, e.g. those with acute kidney injury, the eGFR may not accurately reflect actual GFR. Blood BLOOD SPECIMEN / Unknown Venipuncture / Unknown 10/02/2024 9:03 AM EDT 10/02/2024 9:21 AM EDT Sandra Park MD LABORATORY Final Result [facility] [address] [place] [id number] * (ABNORMAL) COMPLETE BLOOD COUNT (10/02/2024 9:03 AM EDT) WBC 10.07 3.70 - 11.00 k/uL 10/02/2024 9:25 AM EDT [facility] RBC 4.41 3.90 - 5.20 m/uL 10/02/2024 9:25 AM EDT [facility] Hemoglobin 13.7 11.5 - 15.5 g/dL 10/02/2024 9:25 AM EDT [facility] Hematocrit 41.3 36.0 - 46.0 % 10/02/2024 9:25 AM EDT [facility] MCV 93.7 80.0 - 100.0 fL 10/02/2024 9:25 AM EDT [facility] MCH 31.1 26.0 - 34.0 pg 10/02/2024 9:25 AM EDT [facility] MCHC 33.2 30.5 - 36.0 g/dL 10/02/2024 9:25 AM EDT [facility] RDW-CV 16.2(H) 11.5 - 15.0 % 10/02/2024 9:25 AM EDT [facility] Platelet Count 265 150 - 400 k/uL 10/02/2024 9:25 AM EDT [facility] MPV 10.1 9.0 - 12.7 fL 10/02/2024 9:25 AM EDT [facility] Absolute nRBC <0.01 <0.01 k/uL 10/02/2024 9:25 AM EDT [facility] Blood BLOOD SPECIMEN / Unknown Venipuncture / Unknown 10/02/2024 9:03 AM EDT 10/02/2024 9:21 AM EDT Sandra Park MD LABORATORY Final Result [facility] [address] [place] [address] * C-REACTIVE PROTEIN (10/02/2024 9:03 AM EDT) CRP <0.3 <0.9 mg/dL 10/02/2024 9:10 PM EDT [facility] Blood BLOOD SPECIMEN / Unknown Venipuncture / Unknown 10/02/2024 9:03 AM EDT 10/02/2024 9:21 AM EDT Sandra Park MD LABORATORY Final Result [facility] [address] [address], * DNA EXTRACTION BLOOD (09/19/2024 2:55 PM EDT) CONCENTRATION (NG/UL) 189.3 ng/ul 09/20/2024 1:54 PM EDT [facility] VOLUME (UL) OF DNA 500 uL 2024 1:54 PM EDT [facility] Total Yield 94.65 ug 09/20/2024 1:54 PM EDT [facility] Comment: Specimens will be available for 3 years from date of collection. To order testing on this specimen for [facility] patients, please place an [facility] order for DNA and RNA for Clinical Testing ([id number]). To order for patients outside of the [facility] system, please request DNA and RNA for Clinical Testing, order code [id number]. If additional paperwork is required for testing, please email completed forms to . Blood BLOOD SPECIMEN / Unknown Venipuncture / Unknown 09/19/2024 2:55 PM EDT 09/19/2024 2:55 PM EDT Luann Lance MD LABORATORY Final Result Performing Organization Address City/[facility]/ZIP Co de Phone Number [facility] [address] [place] [id number], [place] * (ABNORMAL) IMMUNOGLOBULINS,IGG,IGA,IGM (09/06/2024 9:14 AM EDT) IgG 599(L) 700 - 1,600 mg/dL 09/06/2024 6:57 PM EDT [facility] IgA 163 70 - 400 mg/dL 09/06/2024 6:57 PM EDT [facility] IgM 387(H) 40 - 230 mg/dL 09/06/2024 6:57 PM EDT [facility] Blood BLOOD SPECIMEN / Unknown Venipuncture / Unknown 09/06/2024 9:14 AM EDT 09/06/2024 9:26 AM EDT Fara Lopez APRN.CNP LABORATORY Final Resul t [facility] [address] [address], [place] * VITAMIN B12 (08/29/2024 10:32 AM EDT) Vitamin B12 555 232 - 1,245 pg/mL 08/29/2024 4:04 PM EDT [facility] Blood BLOOD SPECIMEN / Unknown Venipuncture / Unknown 08/29/2024 10:32 AM EDT 08/29/2024 10:32 AM EDT us Rebekah Rojas APRN.MACHINING SUPERVISOR LABORATORY Final Re sult Performing Organization Address City/[facility]/ZIP Co de Phone Number [facility] [address] [place] [address], [place] * (ABNORMAL) IRON AND TIBC (08/29/2024 10:32 AM EDT) Iron 80 41 - 186 ug/dL 08/29/2024 3:52 PM EDT [facility] TIBC 416(H) 232 - 386 ug/dL 08/29/2024 3:52 PM EDT [facility] Transferrin Saturation 19.2 15.0 - 57.0 % 08/29/2024 3:52 PM EDT [facility] Blood BLOOD SPECIMEN / Unknown Venipuncture / Unknown 08/29/2024 10:32 AM EDT 08/29/2024 10:32 AM EDT us Rebekah Rojas APRN.MACHINING SUPERVISOR LABORATORY Final Re sult Performing Organization Address City/[facility]/ZIP Co de Phone Number [facility] [address] [place] [address], [place] * IMMUNOGLOBULIN G (08/29/2024 10:32 AM EDT) IgG 729 700 - 1,600 mg/dL 08/29/2024 7:03 PM EDT [facility] Blood BLOOD SPECIMEN / Unknown Venipuncture / Unknown 08/29/2024 10:32 AM EDT 08/29/2024 10:32 AM EDT us Rebekah Rojas APRN.MACHINING SUPERVISOR LABORATORY Final Re sult [facility] [address] [place] [address], [place] * FOLATE, SERUM (08/29/2024 10:32 AM EDT) Pathologist [facility] Folate >20.0 >4.7 ng/mL 08/29/2024 4:04 PM EDT [facility] Comment: A result of > 20 ng/mL is not necessarily indicative of a pathologic or treatable condition: it reflects a limitation of the test methodology. Assay reference range: 4.8 to 24.2 ng/mL. Suitable for detection of folate deficiency. Reference: Folate III (Folate III) [package insert V 1.0 Bel[place]ian]. [facility], [place], [place]: March 2015. Blood BLOOD SPECIMEN / Unknown Venipuncture / Unknown 08/29/2024 10:32 AM EDT 08/29/2024 10:32 AM EDT Rebekah Rojas MUCK FARMER.MACHINING SUPERVISOR LABORATORY Final Re sult Performing Organization Address [facility] Co de Phone Number [facility] [address] [place] [address], [place] * FERRITIN (08/29/2024 10:32 AM EDT) Pathologist [facility] Ferritin 43.1 14.7 - 205.1 ng/mL 08/31/2024 12:50 PM EDT [facility] Blood BLOOD SPECIMEN / Unknown Venipuncture / Unknown 08/29/2024 10:32 AM EDT 08/29/2024 10:32 AM EDT Rebekah Rojas APRN.MACHINING SUPERVISOR LABORATORY Final Re sult Performing Organization Address City/[facility]/ZIP Co de Phone Number [facility] [address] [place] [address], [place] * (ABNORMAL) COMPLETE BLOOD COUNT AND DIFFERENTIAL (08/29/2024 10:32 AM EDT) Pathologist [facility] WBC 13.12(H) 3.70 - 11.00 k/uL 08/29/2024 10:41 AM EDT [facility] RBC 4.57 3.90 - 5.20 m/uL 08/29/2024 10:41 AM EDT [facility] Hemoglobin 13.8 11.5 - 15.5 g/dL 08/29/2024 10:41 AM EDT [facility] Hematocrit 42.9 36.0 - 46.0 % 08/29/2024 10:41 AM EDT [facility] MCV 93.9 80.0 - 100.0 fL 08/29/2024 10:41 AM EDT [facility] MCH 30.2 26.0 - 34.0 pg 08/29/2024 10:41 AM EDT [facility] MCHC 32.2 30.5 - 36.0 g/dL 08/29/2024 10:[facility] RDW-CV 16.0(H) 11.5 - 15.0 % 08/29/2024 10:41 AM EDT [facility] Platelet Count 291 150 - 400 k/uL 08/29/2024 10:41 AM EDT [facility] MPV 9.5 9.0 - 12.7 fL 08/29/2024 10:41 AM EDT [facility] Neutrophils % 74.7 % 08/29/2024 10:41 AM EDT [facility] Abs Neut 9.82(H) 1.45 - 7.50 k/uL 08/29/2024 10:41 AM EDT [facility] Lymphocytes % 15.8 % 08/29/2024 10:41 AM EDT [facility] Abs Lymph 2.07 1.00 - 4.00 k/uL 08/29/2024 10:41 AM EDT [facility] Monocytes % 6.6 % 08/29/2024 10:41 AM EDT [facility] Abs Moore 0.86 <0.87 k/uL 08/29/2024 10:41 AM EDT [facility] Eosinophils % 0.6 % 08/29/2024 10:41 AM EDT [facility] Abs Eosin 0.08 <0.46 k/uL 08/29/2024 10:41 AM EDT [facility] Basophils % 0.5 % 08/29/2024 10:41 AM EDT [facility] Abs Baso 0.06 <0.11 k/uL 08/29/2024 10:41 AM EDT [facility] Immature Granulocytes % 1.8 % 08/29/2024 10:41 AM EDT [facility] Abs Immature Gran 0.23(H) <0.10 k/uL 08/29/2024 10:41 AM EDT [facility] NRBC 0.0 /100 WBC 08/29/2024 10:41 AM EDT [facility] Absolute nRBC <0.01 <0.01 k/uL 08/29/2024 10:41 AM EDT [facility] Diff Type Auto 08/29/2024 10:41 AM EDT [facility] Blood BLOOD SPECIMEN / Unknown Venipuncture / Unknown 08/29/2024 10:32 AM EDT 08/29/2024 10:32 AM EDT us Rebekah Rojas MUCK FARMER.MACHINING SUPERVISOR LABORATORY Final Re sult [facility] [address] [place] [address] * HEP REMOTE PANEL BL (03/05/2021 2:23 PM EDT) Hep B Core Ab, Total Negative Negative 03/06/2021 7:56 PM EDT [facility] Hep C Antibody IA Negative Negative 03/06/2021 7:58 PM EDT [facility] HBsAg Negative Negative 03/06/2021 7:57 PM EDT [facility] Hep B Surface Ab, Qual Negative Negative 03/06/2021 7:57 PM EDT [facility] Comment:NEGATIVE Blood BLOOD SPECIMEN / Unknown 03/05/2021 2:23 PM EDT 03/05/2021 2:25 PM EDT Sandra Prak MD LABORATORY Final Result [facility] [address] [place] [address] [facility] [address] [place] [address] from Last 3 Months or Most Recently Relevant to Health Maintenance Insurance [employer] Care Teams Air Intelligence Specialist Relationship Specialty Start Date End Date Manuel Klein MD PCP - General Family Medicine 02/27/22 Manuel Klein MD Referring Family Medicine 02/12/22 Manuel Klein MD [address] [place] [address] Referring Family Medicine 07/06/24
--- OUTSIDE RECORDS SUMMARY | 2024-10-24 10:13 | XMS_ITS | Encounter Summary ---
Author Organization [facility] Address [facility] [place] [place] [address] Care Team Providers Care Ornamenter Name Role Phone Manuel Klein MD Unavailable [phone] Manuel Klein MD Primary Care Provider [phone] Manuel Klein MD Unavailable [phone] Source Comments In the event this information is protected by the Federal Confidentiality of Alcohol and Drug AbusePatient Records regulations: The Federal rules restrict any use of the information to criminally investigate or prosecute any alcohol or drug abuse patient.[facility] Encounter Details Date Type Department Care Team (Late st Contact Info) Description 07/06/2024 Get Medical Advice Infectious Disease [address] [place] [address] Tiffany Head DO [address] [place] [id number] Appointment Social History Tobacco Use Types Packs/Day [...] is lower risk 4 09/24/2022 Data from: https://www.neighborhoodatlas.medicine.[facility]/. Last address used for calculation [address] 09/24/2022 Comments No Sex and Gender [...] Contact Info) Description 11/01/2024 9:00 AM EDT [facility] Hematology/Oncology [address] [place] [address] IVIG q 4 weeks with B 12 inj and lab 11/29/2024 8:45 AM EDT Office Visit [facility] [address] [place] [address] 3 mo F/U-IVIG(slow infusion per pt request/B12 +/-IV iron lab 11/29/2024 9:00 AM EDT Visit (SP) Office Hematology/Oncology [address] [place] [address] Fara Lopez APRN.CENTRAL SUPPLY WORKER [address] [place] [address] 3 mo F/U-IVIG(slow infusion per pt request/B12 +/-IV iron lab 11/29/2024 9:30 AM EDT Infusion Center Hematology/Oncology [address] [place] [address] 3 mo F/U-IVIG(slow infusion per pt request/B12 +/-IV iron lab documented as of this encounter Visit Diagnoses Not on filedocumented in this encounter Care Teams Ornamenter Relationship Specialty Start Date End Date Manuel Klein MD PCP - General Family Medicine 02/27/22 Manuel Klein MD Referring Family Medicine 02/12/22 Manuel Klein MD [address] [place] [address] Referring Family Medicine 07/06/24 documented as of this encounter
[2024-10-24 19:14] LABS: C. Difficile PCR NEGATIVE
[2024-10-25 16:08] LABS: H. pylori Stool Ag, EIA Negative (Negative)
== END 2024-10-24 10:08 | disposition home or self-care (01) ==
LOC: LAB 10:07
PROVIDERS: PCP Nurse Practitioner Family; Visit Provider Nurse Practitioner Family
DX: R19.7 Diarrhea, unspecified (principal); K21.9 Gastro-esophageal reflux disease without esophagitis
CPT/HCPCS: 87045; 87046; 87338; 87427; 87493

== ENCOUNTER 2024-12-30 12:41 | Outpatient (OUT) | payer OTHER, SELFPAY ==
--- NOTE | 2024-12-30 12:48 | US_ITS ---
The [address] [address] Patient Name: JONES HALEY MRN: [id number] date: 1980 Sex: F Assigned Patient Location: [place] Current Patient Location: [place] Accession/Order Number: [id number] Exam Date: 12/30/2024 15:15 Report Date: 12/30/2024 15:18 At the request of: INGRID MARTIN NP Procedure: US abdomen complete Abdomen complete. Reason for exam: Abdominal pain. COMPARISON: None. TECHNIQUE: Transabdominal imaging of the abdominal organs were obtained. FINDINGS: The visualized portions of the pancreas appear unremarkable. Abdominal aorta appears normal in caliber. IVC appears patent along its visualized course. Fatty infiltration of the liver. Hepatopedal flow seen within the portal vein. Gallbladder appears unremarkable. CBD measures 3.5 mm. Kidneys appear unremarkable without evidence of hydronephrosis. Spleen measures 8.9 cm without focal mass. Presumed granulomas are present. No ascites is present. US/US abdomen complete IMPRESSION: No acute process is seen. Fatty infiltration of the liver. Impression dictated by: Karel Ricci Jr., D.O. 12/30/2024 3:18 PM Dictation Location: [place] [address] Electronically authenticated by: [id number] Y Date: 12/30/2024 15:18
== END 2024-12-30 12:42 | disposition home or self-care (01) ==
PROVIDERS: PCP Nurse Practitioner Family
DX: R10.9 Unspecified abdominal pain (principal); R19.00 Intra-abdominal and pelvic swelling, mass and lump, unspecified site; K76.0 Fatty (change of) liver, not elsewhere classified
CPT/HCPCS: 76700

== ENCOUNTER 2025-01-02 01:52 | Emergency (ER) | payer OTHER, SELFPAY ==
[2025-01-02 01:59] VITALS: BP 162/102; PULSE 93; TEMP 36.8; O2SAT 95; BMI 44.8
--- NOTE | 2025-01-02 02:06 | ED.GENADUL1 ---
HPI HPI - General Adult General Chief complaint: Fall Stated complaint: FALL Time Seen by Provider: 01/02/25 01:59 Source: patient Mode of arrival: Wheelchair Limitations: no limitations History of Present Illness HPI narrative: The patient is a 44-year-old old female with a known past medical history of right knee pain presents to the emergency department after a mechanical fall. The patient presents with her knee brace on. Apparently this evening she stated she tripped over a shoe. She states that she thinks that she may have hit another object when she fell because her right chest wall particularly under her breast is exquisitely painful. Pain is an 8 out of 10. Touching it makes it worse. Nothing makes it better. No radiation of the pain. No history of prior injury to the chest wall. No pain meds were administered prior to arrival. Related Data Home Medications ?Medication ?Instructions ?Recorded ?Confirmed azathioprine 50 mg tablet 150 mg PO DAILY 12/18/22 04/15/24 ergocalciferol (vitamin D2) 1,250 1,250 mcg PO .3 times weekly 12/18/22 04/15/24 mcg (50,000 unit) capsule folic acid 1 mg tablet 1 mg PO DAILY 12/18/22 04/15/24 hydroxychloroquine 200 mg tablet 200 mg PO BID 12/18/22 04/15/24 metoprolol tartrate 25 mg tablet 200 mg PO Q12H 12/18/22 04/15/24 prednisone 10 mg tablet 10 mg PO DAILY 12/18/22 04/15/24 pregabalin 75 mg capsule 75 mg PO Q8H 12/18/22 04/15/24 metoprolol tartrate 50 mg tablet 200 mg PO DAILY 07/07/23 04/15/24 amlodipine 5 mg tablet 5 mg PO DAILY 04/15/24 04/15/24 cephalexin 500 mg capsule 500 mg PO Q12H 04/15/24 04/15/24 duloxetine 20 mg capsule,delayed 20 mg PO DAILY 04/15/24 04/15/24 release famotidine 20 mg tablet 20 mg PO BEDTIME 04/15/24 04/15/24 vancomycin 125 mg capsule mg 04/15/24 Previous Rx's ?Medication ?Instructions ?Recorded methocarbamol 750 mg tablet 750 mg PO TID PRN pain #12 tabs 04/15/24 hydrocodone 7.5 mg-acetaminophen 1 tab PO Q6H PRN pain #10 tabs 01/02/25 325 mg tablet methocarbamol 750 mg tablet 750 mg PO BID #14 tabs 01/02/25 Allergies Allergy/AdvReac Type Severity Reaction Status Date / Time sulfamethoxazole (From Allergy Unknown Verified 01/02/25 02:09 Sulfamethoxazole-Trimethoprim) trimethoprim (From Allergy Unknown Verified 01/02/25 02:09 Sulfamethoxazole-Trimethoprim) Bactrim Allergy Intermediate Unknown Uncoded 01/02/25 02:02 Opioid HPI Opioid Management Most Recent Opioid Data: Last Pain Scale 8 Today, 02:09 PFSH PFS Social History Smoking status: Current every day smoker Little interest or pleasure in doing things: not at all Feeling down, depressed, or hopeless: not at all Exam Constitutional Vital Signs, click to edit/add: Last Vital Signs Temp 98.2 F 01/02/25 01:59 Pulse 93 H 01/02/25 01:59 Resp 20 01/02/25 01:59 BP 162/102 H 01/02/25 01:59 Pulse Ox 95 01/02/25 01:59 O2 Del Method Room Air 01/02/25 01:59 Course Course Hospital Course: Patient presents to the emergency department after mechanical fall. She denies any head, neck, back trauma. No loss of consciousness. She is not on any blood thinners. She was able to ambulate after the incident occurred. She has however continued to have right sided chest pain. X-ray will be performed. In the interim, the patient is receiving [place] 7.5 per 325 1 tab by mouth. Reevaluation(s) Reevaluation #1: Went in and reevaluated the patient who seemed very dismayed that she did not have any fractures. She believes that she is in enough pain for it to be a fracture. I did try to politely explained that it is because no fractures were seen does not mean that she is not having pain Time: 02:44 Vital Signs Vital signs: Vital Signs Temperature 98.2 F 01/02/25 01:59 Pulse Rate 93 H 01/02/25 01:59 Respiratory Rate 20 01/02/25 01:59 Blood Pressure 162/102 H 01/02/25 01:59 Pulse Oximetry 95 01/02/25 01:59 Oxygen Delivery Method Room Air 01/02/25 01:59 Temperature 98.2 F 01/02/25 01:59 Pulse Rate 93 H 01/02/25 01:59 Respiratory Rate 20 01/02/25 01:59 Blood Pressure 162/102 H 01/02/25 01:59 Pulse Oximetry 95 01/02/25 01:59 Oxygen Delivery Method Room Air 01/02/25 01:59 Medical Decision Making MDM Narrative Medical decision making narrative: The patient is a 44-year-old old female with a known past medical history of right knee pain presents to the emergency department after a mechanical fall. The patient presents with her knee brace on. Apparently this evening she stated she tripped over a shoe. She states that she thinks that she may have hit another object when she fell because her right chest wall particularly under her breast is exquisitely painful. Pain is an 8 out of 10. Touching it makes it worse. Nothing makes it better. No radiation of the pain. No history of prior injury to the chest wall. No pain meds were administered prior to arrival. Differential Diagnosis Differential Diagnosis: Rib fracture, chest wall contusion, pneumothorax Medical Records Medical records reviewed: Yes I reviewed the patient's medical records Imaging Data Chest x-ray: Attestation: I personally reviewed and interpreted this imaging study as follows: My impression: Patient's right rib x-rays and PA chest revealed no evidence of fracture or pneumothorax. Discharge Plan Discharge Chief Complaint: Fall Clinical Impression: Contusion of right chest wall Patient Disposition: Home, Self-Care Time of Disposition Decision: 02:40 Condition: Good Mode of Transportation: Private Vehicle Prescriptions / Home Meds: New hydrocodone-acetaminophen 7.5-325 mg tablet 1 tab PO Q6H PRN (Reason: pain) Qty: 10 0RF methocarbamol 750 mg tablet 750 mg PO BID Qty: 14 0RF No Action azathioprine 50 mg tablet 150 mg PO DAILY ergocalciferol (vitamin D2) 1,250 mcg (50,000 unit) capsule 1,250 mcg PO .3 times weekly folic acid 1 mg tablet 1 mg PO DAILY hydroxychloroquine 200 mg tablet 200 mg PO BID metoprolol tartrate 25 mg tablet 200 mg PO Q12H prednisone 10 mg tablet 10 mg PO DAILY pregabalin 75 mg capsule 75 mg PO Q8H metoprolol tartrate 50 mg tablet 200 mg PO DAILY amlodipine 5 mg tablet 5 mg PO DAILY cephalexin 500 mg capsule 500 mg PO Q12H duloxetine 20 mg capsule,delayed release(DR/EC) 20 mg PO DAILY famotidine 20 mg tablet 20 mg PO BEDTIME vancomycin 125 mg capsule methocarbamol 750 mg tablet 750 mg PO TID PRN (Reason: pain) Qty: 12 0RF Print Language: Estonian Instructions: Rib Contusion (ED), Chest Contusion (ED) Additional Instructions: Thank you for trusting me with your care today. Please keep breathing multiple times very deeply every hour. Take your pain medication and muscle relaxers as needed. Referrals: SAMSON ENCISO [Primary Care Provider, Family Practice] - 1 week
[2025-01-02] MEDS: HYDROCODONE/ACETAMINOPHEN 7.5-325 MG/15 ML CUP 7.5 MG PO (02:39)
[2025-01-02] MEDS: METHOCARBAMOL 500 MG TABLET PO (02:50)
[2025-01-02 03:03] VITALS: BP 146/97; PULSE 89; O2SAT 96
== END 2025-01-02 03:05 | disposition home or self-care (01) ==
PROVIDERS: Emergency Provider Emergency Medicine; PCP Nurse Practitioner Family
DX: S20.211A Contusion of right front wall of thorax, initial encounter (principal); W01.10XA Fall on same level from slipping, tripping and stumbling with subsequent striking against unspecified object, initial encounter
CPT/HCPCS: 71101; 99283

== ENCOUNTER 2025-02-24 11:45 | Outpatient (OUT) | payer OTHER, SELFPAY ==
--- OUTSIDE RECORDS SUMMARY | 2025-02-14 15:20 | XMS_ITS | Encounter Summary ---
Author Organization [facility] Healthcare Address [address] [place] [address] Care Team Providers Care Bulb Packer Name Role Phone Gay De La Torre MD Unavailable [phone] Reason for Referral * Consultation (Routine) - Authorized Specialty Diagnoses / Procedures Referred By Nahid tran Referred To Contact General Surgery Diagnoses Pilonidal cyst Procedures [place] OFFICE/OUTPATIENT [facility] 60 MINUTES Cynthia English MD [address] [facility] [address] [place] [address] Phone: tel: fax: Terence Blum MD 7[address] [facility] 150 [place] [address] Phone: tel: fax: Referral ID Status Reason Start Date Expiration Date Visits Requested Visits Authorized [id number] Authorized Specialty Services Required 02/14/2025 08/13/2025 1 1 Reason for Visit * Reason Comments Follow-up Suspicious Skin Lesion Encounter Details Date Type Department Care Team (Late st Contact Info) Description 02/14/2025 3:20 PM EDT [facility] [address] [facility] 350 [place] [phone] Cynthia English MD [address] [facility] [address] [place] [address] Pilonidal cyst (Primary Dx); Hidradenitis [...] AM EDT Consult [facility] [address] [facility] 150 [place] [phone] Terence Blum MD [address] [facility] 150 [place] [address] 03/19/2025 10:20 AM EDT Office Visit [facility] [address] [place] [phone] Mary Grace Mejias MD 112 [facility] 130 [place] [address] 07/25/2025 11:00 AM EST Office Visit [facility] [address] [place] [address] Cynthia English MD [address] [place] [address] Scheduled Referrals Name Type Priority [...] Other documented in this encounter Care Teams Bulb Packer Relationship Specialty Start Date End Date Gay De La Torre MD [address] [place] [address] Referring Physician Family Medicine 07/18/24 documented as of this encounter
--- OUTSIDE RECORDS SUMMARY | 2025-02-21 09:00 | XMS_ITS | Encounter Summary ---
Author Organization [facility] Address [address] [place] [address] Care Team Providers Care High [employer] Principal Name Role Phone Manuel Klein MD Unavailable [phone] Manuel Klein MD Primary Care Provider +-4 Manuel Klein MD Unavailable [phone] Source Comments In the event this information is protected by the Federal Confidentiality of Alcohol and Drug AbusePatient Records regulations: The Federal rules restrict any use of the information to criminally investigate or prosecute any alcohol or drug abuse patient.[facility] Reason for Visit * Reason Comments Hypogammaglobulinemia Treatment visit Encounter Details Date Type Department Care Team (Latest Contact Info) Description 02/21/2025 9:00 AM EDT Visit (SP) Office Hematology/Oncology [address] [facility] [place] [address] Fara Lopez APRN.COINING PRESS OPERATOR [address] [facility] [place] [address] Frequent infections (Primary Dx); Hypogammaglobulinemi a [...] is lower risk 4 09/24/2022 Data from: https://www.neighborhoodatlas.medicine.[facility]/. Last address used for calculation [address] 09/24/2022 Comments No Sex and Gender [...] this encounter Progress Notes * Fara Lopez APRN.COINING PRESS OPERATOR - 02/21/2025 9:00 AM EDT Images from the original note were not included. NAME: Ariadna Paniagua CLINIC NO.: [id number] DATE OF SERVICE: February 21, 2025 (John) [...] 1 on her buttocks. She saw a health underwriter who treated one with a steroid injection. [...] requiring a recent corticosteroid injection by her health underwriter. She experiences intermittent fatigue, shortness of breath, [...] injections. Shefollows with multiple doctors including and weight tester, bulk system operator, health underwriter and PCP. She has been told they [...] one time a week. Per PCP^Disp: ^Rfl: [id number]-kunylc-kbejrwckx (BMX 1:1:1) 1:1:1 liqd^Take 5 mL by [...] which included preparing to see the patient, [id number] patient care, completing clinical documentation, obtaining and/or reviewing separately obtained history, performing a medically appropriate examination, counseling and educating the pat ient/family/caregiver, ordering medications, tests, or procedures, communicating with other HCPs (not separately reported), and independently interpreting results (not separately reported) . Fara Lopez APRN, WASTE/MATERIALS EXCHANGE SPECIALIST-C, OCN Hematology and Oncology Services Provided at: [place], [place] CC: aMnuel Klein MD [address] [facility] [address] documented in this encounter Plan of Treatment Upcoming Encounters Date Type Department Care Team (Latest Contact Info) Description 03/08/2025 2:00 PM EDT Infusion Center Hematology/Oncology [address] [facility] [place] [address] BENLYSTA - 03/21/2025 9:00 AM EDT Office Visit [facility] [address] [place] [address] 4 week follow up IVIG - pt to see MASON for this appt per Fara 03/21/2025 9:20 AM EDT Visit (SP) Office Hematology/Oncology [address] [facility] [place] [address] Jose Cho MD [address] [facility] [place] [address] 4 week follow up IVIG - pt to see MASON for this appt per Fara 03/21/2025 9:40 AM EDT Infusion Center Hematology/Oncology [address] [place] [address] Gabbi, Chair [address] [place] [address] 4 week follow up IVIG - pt to see MASON for this appt per Fara 04/05/2025 2:00 PM EST Infusion Center Hematology/Oncology [address] [place] [address] BENLYSTA - 05/03/2025 2:00 PM [facility] Infusion Center Hematology/Oncology [facility] [place] [address] BENLYSTA - documented as of this encounter Visit Diagnoses Diagnosis Frequent infections- Primary Hypogammaglobulinemia (HCC) Hypogammaglobulinaemia, unspecified Bilateral leg weakness Other musculoskeletal symptoms referable to limbs Discoid lupus erythematosus Lupus erythematosus Vitamin B12 deficiency Other B-complex deficiencies Shortness of breath Other iron deficiency anemia Malaise and fatigue Other malaise and fatigue documented in this encounter Care Teams High School Principal Relationship Specialty Start Date End Date Manuel Klein MD PCP - General Family Medicine 02/27/22 Manuel Klein MD Referring Family Medicine 02/12/22 Manuel Klein MD [address] [place] [address] Referring Family Medicine 07/06/24 documented as of this encounter
--- OUTSIDE RECORDS SUMMARY | 2025-02-21 09:30 | XMS_ITS | Encounter Summary ---
Author Organization [facility] Address [address] [place] [address] Care Team Providers Care Farm Machinery Set Up Mechanic Name Role Phone Manuel Klein MD Unavailable [phone] Manuel Klein MD Primary Care Provider +-4 Manuel Klein MD Unavailable [phone] Source Comments In the event this information is protected by the Federal Confidentiality of Alcohol and Drug AbusePatient Records regulations: The Federal rules restrict any use of the information to criminally investigate or prosecute any alcohol or drug abuse patient.[facility] Reason for Visit * [place] Prior Authorization (Routine) - Authorized Specialty Diagnoses / Procedures Referred By Contac t Referred To Contact Diagnoses Frequent infections Hypogammaglobulinemia (HCC) Bilateral leg weakness Discoid lupus erythematosus Procedures GAMMAGARD LIQUID INJECTION IMMUNE GLOBULIN INJECTION Jose Cho MD [address] [place] [address] [place] [address] Phone: tel: fax: Hematology/Oncology [address] [place] [address] [place] [address] Phone: tel: fax: Referral ID Status Reason Start Date Expiration Date Visits Requested Visits Authorized [id number] Authorized Patient Cleared - Admin/Chairm an/Director advise to proceed or did not respond 10/30/2024 10/30/2025 19 19 Encounter Details Date Type Department Care Team (Latest Contact Info) Description 02/21/2025 9:30 AM EDT Infusion Center Hematology/Oncology [address] [place] [address] [place] [address] Frequent infections (Primary Dx); Hypogammaglobulinemia (HCC); Bilateral [...] is lower risk 4 09/24/2022 Data from: https://www.neighborhoodatlas.medicine.[facility].edu/. Last address used for calculation [address] [place] [address] 09/24/2022 Comments No Sex and Gender Information [...] 02/21/2025 11:59 AM EDT Gamunex-C: Lot # [id number] EXP 05/02/27 = 20 G LOT# [id number] EXP 09/04/27 = 10 G LOT# [id number] EXP 06/19/27 = 5 G documented in this encounter Plan of Treatment Upcoming Encounters Date Type Department Care Team (Latest Contact Info) Description 03/08/2025 2:00 PM EDT [facility] Hematology/Oncology [address] [facility] [place] [address] BENLYSTA - 03/21/2025 9:00 AM EDT Office Visit [facility] Laboratory [address] [facility] [place] [address] 4 week follow up IVIG - pt to see MASON for this appt per Fara 03/21/2025 9:20 AM EDT Visit (SP) Office Hematology/Oncology [address] [place] [address] Jose Cho MD [address] [place] [address] 4 week follow up IVIG - pt to see MASON for this appt per Fara 03/21/2025 9:40 AM EDT Infusion Center Hematology/Oncology [address] [facility] [place] [address] Gabbi, Chair [address] [facility] [place] [address] 4 week follow up IVIG - pt to see MASON for this appt per Fara 04/05/2025 2:00 PM [facility] Infusion Center Hematology/Oncology [address] [facility] [place] [address] BENLYSTA - 05/03/2025 2:00 PM [facility] Infusion Center Hematology/Oncology [address] [facility] [place] [address] BENLYSTA - documented as of this encounter [...] mL/hr documented in this encounter Care Teams Farm Machinery Set Up Mechanic Relationship Specialty Start Date End Date Manuel Klein MD PCP - General Family Medicine 02/27/22 Manuel Klein MD Referring Family Medicine 02/12/22 Manuel Klein MD [address] [place] [address] Referring Family Medicine 07/06/24 documented as of this encounter
--- OUTSIDE RECORDS SUMMARY | 2025-02-23 05:30 | XMS_ITS ---
Author Organization [facility] in [place] Address [address] [place] [address] Care Team Providers Care Pump House Operator Name Role Phone Gay De La Torre Primary Care Provider REASON FOR VISIT labs from [facility] Encounters Encounter Location Date Provider Diagnosis [facility] [address] [place] [address] 02/23/2025 Gay De La Torre Pre-diabetes R73.03 and 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-term current use of medication Z79.899 Assessments Encounter Date Diagnosis (ICD Code) Assessment Notes Treatment Notes Treatment Clinical Notes Section Notes 02/23/2025 Pre-diabetes (ICD-10 - R73.03) 02/23/2025 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-term current use of medication (ICD-10 - Z79.899) Plan Of Treatment Pending Test Test Name Order Date CMP - Comprehensive Metabolic Panel 07/2024 GLYCOHEMOGLOBIN A1C 02/23/2025 Progress Notes * Ariadna PANIAGUA BDOB:1980 (44 yo F)Acc No.[id number]:02/23/2025 Patient: Ariadna MOORE :1980 A ge:44 Y S ex:Female Address:[address] [place] [address] [place], [address] Subjective: * Chief Complaints: * l abs [...] * true * Date: Generated for Rosalee bustillo/Alfred/Ritasmitting on: 11:48 AM EDT
--- OUTSIDE RECORDS SUMMARY | 2025-02-24 11:47 | XMS_ITS | Encounter Summary ---
Author Organization [facility] Address [address] [place] [address] Care Team Providers Care Business Division Chair Name Role Phone Manuel Klein MD Unavailable [phone] Manuel Klein MD Primary Care Provider +-4 Manuel Klein MD Unavailable [phone] Source Comments In the event this information is protected by the Federal Confidentiality of Alcohol and Drug AbusePatient Records regulations: The Federal rules restrict any use of the information to criminally investigate or prosecute any alcohol or drug abuse patient.[facility] Encounter Details Date Type Department Care Team (Latest Contact Info) Description 03/29/2024 Patient Msg [facility] [address] [place] [address] Akiko Cooper MD [address] [place] [address] breath test scheduling Social History Tobacco Use [...] is lower risk 4 09/24/2022 Data from: https://www.neighborhoodatlas.medicine.[facility]/. Last address used for calculation [address] 09/24/2022 Comments No Sex and Gender [...] Info) Description 03/08/2025 2:00 PM EDT [facility] Center Hematology/Oncology [address] [place] [address] BENLYSTA - 03/21/2025 9:00 AM EDT Office Visit [facility] Laboratory [address] [place] [address] 4 week follow up IVIG - pt to see MASON for this appt per [facility] 03/21/2025 9:20 AM EDT Visit (SP) Office Hematology/Oncology [address] [place] [address] Jose Cho MD [address] [place] [address] 4 week follow up IVIG - pt to see MASON for this appt per [facility] 03/21/2025 9:40 AM EDT Infusion Center Hematology/Oncology [address] [place] [address] Gabbi, Chair [address] [place] [address] 4 week follow up IVIG - pt to see MASON for this appt per [facility] 04/05/2025 2:00 PM EST Infusion Center Hematology/Oncology [address] [place] [address] BENLYSTA - 05/03/2025 2:00 PM [facility] Infusion Center Hematology/Oncology [address] [facility] [place] [address] BENLYSTA - documented as of this encounter Visit Diagnoses Not on filedocumented in this encounter Care Teams Business Division Chair Relationship Specialty Start Date End Date Manuel Klein MD PCP - General Family Medicine 02/27/22 Manuel Klein MD Referring Family Medicine 02/12/22 Manuel Klein MD [address] [place] [address] Referring Family Medicine 07/06/24 documented as of this encounter
--- OUTSIDE RECORDS SUMMARY | 2025-02-24 11:47 | XMS_ITS | Encounter Summary ---
Author Organization [facility] Address [address] [place] [address] Care Team Providers Care Charge Entry Clerk Name Role Phone Britt Gay(Historical) BOX GLUER.INVESTIGATOR CASH SHORTAGE Primary Care Provider Unavailable Manuel Klein MD Unavailable [phone] Manuel Klein MD Primary Care Provider +-4 Manuel Klein MD Unavailable [phone] Source Comments In the event this information is protected by the Federal Confidentiality of Alcohol and Drug AbusePatient Records regulations: The Federal rules restrict any use of the information to criminally investigate or prosecute any alcohol or drug abuse patient.[facility] Encounter Details Date Type Department Care Team (Late st Contact Info) Description 05/04/2021 Get Medical Advice Rheumatology [address] [facility] [place], [place] [phone] Sandra Park MD [address] [place], [place] [phone] Lupus diagnosis from dermatology Social History Tobacco [...] on file 08/09/2020 Data from: https://www.neighborhoodatlas.medicine.[facility]/. Last address used for calculation Not on [...] 2:00 PM EDT Infusion Center Hematology/Oncology [address] [address] BENLYSTA - 03/21/2025 9:00 AM EDT Office Visit [facility] Laboratory [address] [place] [address] 4 week follow up IVIG - pt to see MASON for this appt per Fara 03/21/2025 9:20 AM EDT Visit (SP) Office Hematology/Oncology [address] [place] [address] Jose Cho MD [address] [place] [address] 4 week follow up IVIG - pt to see MASON for this appt per Fara 03/21/2025 9:40 AM EDT Infusion Center Hematology/Oncology [address] [place] [address] Gabbi, Chair [address] [place] [address] 4 week follow up IVIG - pt to see MASON for this appt per Fara 04/05/2025 2:00 PM EST Infusion Center Hematology/Oncology [address] [place] [address] BENLYSTA - 05/03/2025 2:00 PM EST Infusion Center Hematology/Oncology [address] [place] [address] BENLYSTA - documented as of this encounter Visit Diagnoses Diagnosis CHRISTIAN positive- Primary Other and unspecified nonspecific immunological findings Other systemic lupus erythematosus with other organ involvement (HCC) documented in this encounter Care Teams Charge Entry Clerk Relationship Specialty Start Date End Date Gay De La Torre(Historical), BOX GLUER.INVESTIGATOR CASH SHORTAGE PCP - General Family Medicine 10/24/21 02/26/22 Manuel Klein MD PCP - General Family Medicine 02/27/22 Manuel Klein MD Referring Family Medicine 02/12/22 Manuel Klein MD [address] [place] [address] Referring Family Medicine 07/06/24 documented as of this encounter
--- OUTSIDE RECORDS SUMMARY | 2025-02-24 11:47 | XMS_ITS | Encounter Summary ---
Author Organization [facility] Address [address] [place] [address] Care Team Providers Care Oxygen Furnace Operator Name Role Phone Manuel Klein MD Unavailable [phone] Manuel Klein MD Primary Care Provider +-4 Manuel Klein MD Unavailable [phone] Source Comments In the event this information is protected by the Federal Confidentiality of Alcohol and Drug AbusePatient Records regulations: The Federal rules restrict any use of the information to criminally investigate or prosecute any alcohol or drug abuse patient.[facility] Encounter Details Date Type Department Care Team (Late st Contact Info) Description 05/05/2022 Patient Msg Home Respiratory Therapy [address] [place] [address] [place] [phone] Jami Rivera, PSS PAP Referral Delay Social [...] ot on file 08/09/2020 Data from: https://www.neighborhoodatlas.medicine.[facility]/. Last address used for calculation Not [...] Contact Info) Description 03/08/2025 2:00 PM EDT [facility] Hematology/Oncology [address] [place] [address] BENLYSTA - 03/21/2025 9:00 AM EDT Office Visit [facility] Laboratory [address] [place] [address] 4 week follow up IVIG - pt to see MASON for this appt per Fara 03/21/2025 9:20 AM EDT Visit (SP) Office Hematology/Oncology [address] [place] [address] Jose Cho MD [address] [place] [address] 4 week follow up IVIG - pt to see MASON for this appt per Fara 03/21/2025 9:40 AM EDT Infusion Center Hematology/Oncology [address] [place] [address] Gabbi, Chair [address] [place] [address] 4 week follow up IVIG - pt to see MASON for this appt per Fara 04/05/2025 2:00 PM EST Infusion Center Hematology/Oncology [address] [place] [address] BENLYSTA - 05/03/2025 2:00 PM [facility] Infusion Center Hematology/Oncology [address] [place] [address] BENLYSTA - documented as of this encounter Visit Diagnoses Not on filedocumented in this encounter Care Teams Oxygen Furnace Operator Relationship Specialty Start Date End Date Manuel Klein MD PCP - General Family Medicine 02/27/22 Manuel Klein MD Referring Family Medicine 02/12/22 Manuel Klein MD [address] [facility] [place] [address] Referring Family Medicine 07/06/24 documented as of this encounter
--- OUTSIDE RECORDS SUMMARY | 2025-02-24 11:47 | XMS_ITS | Encounter Summary ---
Author Organization [facility] Address [address] [place] [address] Care Team Providers Care Self Sealing Fuel Tank Builder Name Role Phone Gay De La Torre(Historical) UNDERGROUND TRUCK OPERATOR.SOAP TENDER Primary Care Provider Unavailable Manuel Klein MD Unavailable [phone] Manuel Klein MD Primary Care Provider +-4 Manuel Klein MD Unavailable [phone] Source Comments In the event this information is protected by the Federal Confidentiality of Alcohol and Drug AbusePatient Records regulations: The Federal rules restrict any use of the information to criminally investigate or prosecute any alcohol or drug abuse patient.[facility] Encounter Details Date Type Department Care Team (Late st Contact Info) Description 08/13/2021 Patient Msg Rheumatology [address] [place] [address] Provider, Ccf Please Review Changes [...] N ot on file 08/09/2020 Data from: https://www.neighborhoodatlas.medicine.[facility]/. Last address used for calculation Not [...] Contact Info) Description 03/08/2025 2:00 PM EDT [facility] Center Hematology/Oncology [address] [facility] [place] [address] BENLYSTA - 03/21/2025 9:00 AM EDT Office Visit [facility] Laboratory [address] [place] [address] 4 week follow up IVIG - pt to see MASON for this appt per [facility] 03/21/2025 9:20 AM EDT Visit (SP) Office Hematology/Oncology [address] [place] [address] Jose Cho MD [address] [place] [address] 4 week follow up IVIG - pt to see MASON for this appt per [facility] 03/21/2025 9:40 AM EDT Infusion Center Hematology/Oncology [address] [place] [address] Gabbi, Chair [address] [place] [address] 4 week follow up IVIG - pt to see MASON for this appt per [facility] 04/05/2025 2:00 PM EST Infusion Center Hematology/Oncology [address] [place] [address] BENLYSTA - 05/03/2025 2:00 PM [facility] Infusion Center Hematology/Oncology [address] [place] [address] BENLYSTA - documented as of this encounter Visit Diagnoses Not on filedocumented in this encounter Care Teams Self Sealing Fuel Tank Builder Relationship Specialty Start Date End Date Gay De La Torre(Historical), UNDERGROUND TRUCK OPERATOR.SOAP TENDER PCP - General Family Medicine 10/24/21 02/26/22 Manuel Klein MD PCP - General Family Medicine 02/27/22 Manuel Klein MD Referring Family Medicine 02/12/22 Manuel Klein MD [facility] [place] [address] Referring Family Medicine 07/06/24 documented as of this encounter
--- OUTSIDE RECORDS SUMMARY | 2025-02-24 11:47 | XMS_ITS | Encounter Summary ---
Author Organization [facility] Address [address] [place] [address] Care Team Providers Care Pain Management Physician Name Role Phone Britt, Gay(Historical) RECORD CUTTER.ISOTOPE TECHNOLOGIST Primary Care Provider Unavailable Manuel Klein MD Unavailable [phone] Manuel Klein MD Primary Care Provider [...] 02/24/2022 Get Medical Advice Infectious Disease [address] [place] [address] Tiffany Head DO [address] [place] [address] Test results Social History Tobacco [...] ot on file 08/09/2020 Data from: https://www.neighborhoodatlas.medicine.[facility]/. Last address used for calculation Not [...] Contact Info) Description 03/08/2025 2:00 PM EDT [facility] Center Hematology/Oncology [address] [place] [address] [place] [address] BENLYSTA - 03/21/2025 9:00 AM EDT Office Visit [facility] Laboratory [address] [place] [address] 4 week follow up IVIG - pt to see MASON for this appt per Fara 03/21/2025 9:20 AM EDT Visit (SP) Office Hematology/Oncology [address] [place] [address] Jose Cho MD [address] [place] [address] 4 week follow up IVIG - pt to see MASON for this appt per Fara 03/21/2025 9:40 AM EDT Infusion Center Hematology/Oncology [address] [place] [address] Gabbi, Chair [address] [place] [address] 4 week follow up IVIG - pt to see MASON for this appt per Fara 04/05/2025 2:00 PM EST Infusion Center Hematology/Oncology [address] [place] [address] BENLYSTA - 05/03/2025 2:00 PM [facility] Infusion Center Hematology/Oncology [address] [place] [address] BENLYSTA - documented as of this encounter Visit Diagnoses Not on filedocumented in this encounter Care Teams Pain Management Physician Relationship Specialty Start Date End Date Gay De La Torre(Historical), RECORD CUTTER.ISOTOPE TECHNOLOGIST PCP - General Family Medicine 10/24/21 02/26/22 Manuel Klein MD PCP - General Family Medicine 02/27/22 Manuel Klein MD Referring Family Medicine 02/12/22 Manuel Klein MD [address] [facility] [place] [address] Referring Family Medicine 07/06/24 documented as of this encounter
--- OUTSIDE RECORDS SUMMARY | 2025-02-24 11:47 | XMS_ITS | Encounter Summary ---
Author Organization [facility] Address [address] [place] [address] Care Team Providers Care Auger Machine Offbearer Name Role Phone Gay De La Torre(Historical) FOUNDRY SUPERVISOR.COMPANY DOCTOR Primary Care Provider Unavailable Manuel Klein MD Unavailable [phone] Manuel Klein MD Primary Care Provider +-4 Manuel Klein MD Unavailable [phone] Source Comments In the event this information is protected by the Federal Confidentiality of Alcohol and Drug AbusePatient Records regulations: The Federal rules restrict any use of the information to criminally investigate or prosecute any alcohol or drug abuse patient.[facility] Encounter Details Date Type Department Care Team (Late st Contact Info) Description 05/05/2021 Get Medical Advice Rheumatology [address] [place], [place] [phone] Sandra Park MD [address] [place] [place], [place] [phone] Steroids Social History Tobacco Use Types Packs/Day [...] N ot on file 08/09/2020 Data from: https://www.neighborhoodatlas.[facility]/. Last address used for calculation Not [...] 2:00 PM EDT Infusion Center Hematology/Oncology [address] [place] [address] BENLYSTA - 03/21/2025 9:00 AM EDT Office Visit [facility] Laboratory [address] [place] [address] 4 week follow up IVIG - pt to see MASON for this appt per Fara 03/21/2025 9:20 AM EDT Visit (SP) Office Hematology/Oncology [address] [place] [address] Jose Cho MD [address] [facility] [place] [address] 4 week follow up IVIG - pt to see MASON for this appt per Fara 03/21/2025 9:40 AM EDT Infusion Center Hematology/Oncology [address] [place] [address] Gabbi, Chair 4 [address] [facility] [place] [address] 4 week follow up IVIG - pt to see MASON for this appt per Fara 04/05/2025 2:00 PM EST Infusion Center Hematology/Oncology [address] [place] [address] BENLYSTA - 05/03/2025 2:00 PM EST Infusion Center Hematology/Oncology [address] [place] [address] BENLYSTA - documented as of this encounter Visit Diagnoses Diagnosis Other systemic lupus erythematosus with other organ involvement (HCC)- Primary documented in this encounter Care Teams Auger Machine Offbearer Relationship Specialty Start Date End Date Gay De La Torre(Historical), FOUNDRY SUPERVISOR.COMPANY DOCTOR PCP - General Family Medicine 10/24/21 02/26/22 Manuel Klein MD PCP - General Family Medicine 02/27/22 Manuel Klein MD Referring Family Medicine 02/12/22 Manuel Klein MD [address] [place] [address] Referring Family Medicine 07/06/24 documented as of this encounter
--- OUTSIDE RECORDS SUMMARY | 2025-02-24 11:47 | XMS_ITS | Encounter Summary ---
Author Organization [facility] Address [address] [place] [address] Care Team Providers Care Sulky Driver Name Role Phone Manuel Klein MD Unavailable [phone] Manuel Klein MD Primary Care Provider +-4 Manuel Klein MD Unavailable [phone] Source Comments In the event this information is protected by the Federal Confidentiality of Alcohol and Drug AbusePatient Records regulations: The Federal rules restrict any use of the information to criminally investigate or prosecute any alcohol or drug abuse patient.[facility] Encounter Details Date Type Department Care Team (Late st Contact Info) Description 03/18/2022 Get Medical Advice Allergy [address] [place] [phone] Misty Nelson MD [address] [place] [address] Test results Social History Tobacco Use [...] N ot on file 08/09/2020 Data from: https://www.neighborhoodatlas.medicine.[facility]/. Last address used for calculation Not [...] Hematology/Oncology [address] [facility] [place] [address] BENLYSTA - 03/21/2025 9:00 AM EDT Office Visit [facility] Laboratory [address] [place] [address] 4 week follow up IVIG - pt to see MASON for this appt per Fara 03/21/2025 9:20 AM EDT Visit (SP) Office Hematology/Oncology [address] [facility] [place] [address] Jose Cho MD [address] [place] [address] 4 week follow up IVIG - pt to see MASON for this appt per Fara 03/21/2025 9:40 AM EDT Infusion Center Hematology/Oncology [address] [place] [address] Gabbi, Chair [address] [facility] [place] [address] 4 week follow up IVIG - pt to see MASON for this appt per Fara 04/05/2025 2:00 PM EST Infusion Center Hematology/Oncology [address] [place] [address] BENLYSTA - 05/03/2025 2:00 PM [facility] Infusion Center Hematology/Oncology [address] [place] [address] BENLYSTA - documented as of this encounter Visit Diagnoses Not on filedocumented in this encounter Care Teams Sulky Driver Relationship Specialty Start Date End Date Manuel Klein MD PCP - General Family Medicine 02/27/22 Manuel Klein MD Referring Family Medicine 02/12/22 Manuel Klein MD [address] [place] [address] Referring Family Medicine 07/06/24 documented as of this encounter
--- OUTSIDE RECORDS SUMMARY | 2025-02-24 11:47 | XMS_ITS | Encounter Summary ---
Author Organization [facility] Address [address] [place] [address] Care Team Providers Care Deposit Clerk Name Role Phone Manuel Klein MD Unavailable [phone] Manuel Klein MD Primary Care Provider +-4 Manuel Klein MD Unavailable [phone] Source Comments In the event this information is protected by the Federal Confidentiality of Alcohol and Drug AbusePatient Records regulations: The Federal rules restrict any use of the information to criminally investigate or prosecute any alcohol or drug abuse patient.[facility] Encounter Details Date Type Department Care Team (Late st Contact Info) Description 03/26/2022 Patient Msg Allergy [address] [place] [phone] Misty Nelson MD [facility] [place] [address] lab results Social History Tobacco [...] on file 08/09/2020 Data from: https://www.neighborhoodatlas.medicine.[facility]/. Last address used for calculation Not [...] No 12/25/2014 11:14 AM EDT Chichi De Jessu documented in this encounter Plan of Treatment Upcoming Encounters Date Type Department Care Team (Latest Contact Info) Description 03/08/2025 2:00 PM EDT [facility] Center Hematology/Oncology [address] [place] [address] [place] [address] BENLYSTA - 03/21/2025 9:00 AM EDT Office Visit [facility] Laboratory [address] [place] [address] 4 week follow up IVIG - pt to see MASON for this appt per Fara 03/21/2025 9:20 AM EDT Visit (SP) Office Hematology/Oncology [address] [facility] [place] [address] Jose Cho MD [address] [facility] [place] [address] 4 week follow up IVIG - pt to see MASON for this appt per Fara 03/21/2025 9:40 AM EDT Infusion Center Hematology/Oncology [address] [facility] [place] [address] Gabbi, [facility] [address] [facility] [place] [address] 4 week follow up IVIG - pt to see MASON for this appt per [facility] 04/05/2025 2:00 PM EST Infusion Center Hematology/Oncology [address] [facility] [place] [address] BENLYSTA - 05/03/2025 2:00 PM [facility] Infusion Center Hematology/Oncology [address] [place] [place] [address] BENLYSTA - documented as of this encounter Visit Diagnoses Not on filedocumented in this encounter Care Teams Deposit Clerk Relationship Specialty Start Date End Date Manuel Klein MD PCP - General Family Medicine 02/27/22 Manuel Klein MD Referring Family Medicine 02/12/22 Manuel Klein MD [address] [place] [address] Referring Family Medicine 07/06/24 documented as of this encounter
--- OUTSIDE RECORDS SUMMARY | 2025-02-24 11:47 | XMS_ITS | Encounter Summary ---
Author Organization [facility] Address [address] [place] [address] Care Team Providers Care Reservoir Engineering Manager Name Role Phone Manuel Klein MD Unavailable [phone] Manuel Klein MD Primary Care Provider +-4 Manuel Klein MD Unavailable [phone] Source Comments In the event this information is protected by the Federal Confidentiality of Alcohol and Drug AbusePatient Records regulations: The Federal rules restrict any use of the information to criminally investigate or prosecute any alcohol or drug abuse patient.[facility] Encounter Details Date Type Department Care Team (Late st Contact Info) Description 02/27/2022 Get Medical Advice Infectious Disease [address] [place] [address] Tiffany Head DO [address] [place] [address] Blood work Social History Tobacco [...] N ot on file 08/09/2020 Data from: https://www.neighborhoodatlas.medicine.[facility]/. Last address used for calculation Not on [...] Contact Info) Description 03/08/2025 2:00 PM EDT [facility] Center Hematology/Oncology [address] [facility] [place] [address] BENLYSTA - 03/21/2025 9:00 AM EDT Office Visit [facility] [address] [place] [address] [place] [address] 4 week follow up IVIG - pt to see MASON for this appt per [facility] 03/21/2025 9:20 AM EDT Visit (SP) Office Hematology/Oncology [address] [facility] [place] [address] Jose Cho MD [address] [facility] [place] [address] 4 week follow up IVIG - pt to see MASON for this appt per [facility] 03/21/2025 9:40 AM EDT Infusion Center Hematology/Oncology [address] [facility] [place] [address] Gabbi, Chair [address] [facility] [place] [address] 4 week follow up IVIG - pt to see MASON for this appt per [facility] 04/05/2025 2:00 PM EST Infusion Center Hematology/Oncology [address] [facility] [place] [address] BENLYSTA - 05/03/2025 2:00 PM EST Infusion Center Hematology/Oncology [address] [facility] [place] [address] BENLYSTA - documented as of this encounter Visit Diagnoses Not on filedocumented in this encounter Care Teams Reservoir Engineering Manager Relationship Specialty Start Date End Date Manuel Klein MD PCP - General Family Medicine 02/27/22 Manuel Klein MD Referring Family Medicine 02/12/22 Manuel Klein MD [address] [place] [address] Referring Family Medicine 07/06/24 documented as of this encounter
--- OUTSIDE RECORDS SUMMARY | 2025-02-24 11:47 | XMS_ITS | Clinical Summary ---
Author Organization [facility] Address [address] [place] [address] Phone Care Team Providers Care Dietitian Research Name Role Phone Mitali, Michelle London PLATFORM POWER TECHNICIAN-ENERGY SPECIALIST Unavailable [phone] Kenneth Patel MD Unavailable [phone] Gay De La Torre PLATFORM POWER TECHNICIAN-ENERGY SPECIALIST Primary Care Provider Allergies Active Allergy Reactions [...] 10/24/19 Active ergocalciferol (Vitamin D-2) 1.25 MG (08687 UT) capsule Take 1 capsule (50,000 Units) [...] Diagnosed Date Resolved Date Tachycardia 06/01/2023 07/26/2024 Family History Medical History Relation Name Comments [...] Description 07/26/2025 11:00 AM EST Office Visit [facility] [address] [facility] [address] [place] [address] Lois Arguelles MD [address] [employer] [address] [place] [address] Health Maintenance Due Date Last Done Comments HIV Screening 1980 Lipid Panel 1980 MMR Vaccines (1 of 1 - Standard series) 1981 Hepatitis C Screening 1998 Hepatitis B Vaccines (1 of 3 - 19+ 3-dose series) 10/05/1999 Pneumococcal Vaccine: Pediatrics and At-Risk Adult Patients (1 of 2 - PCV) 10/05/1999 Zoster Vaccines (1 of 2) 10/05/1999 HPV/Cotest 2001 DTaP/Tdap/Td Vaccines (1 - Tdap) 2002 HPV Vaccines (1 - 3-dose standard series) 10/05/2007 Diabetes Screening 03/17/2023 03/17/2022 COVID-19 Vaccine (3 - Pfizer risk series) 03/23/2023 02/23/2023, 02/08/2022 Influenza Vaccine (#1) 2025 Mammogram 04/06/2025 04/06/2024 Yearly Adult Physical 06/07/2025 06/06/2024 Cervical Cancer Screening 06/06/2027 Pap Smear 06/06/2027 [...] Name Priority Date/Time Associated Diagnosis Comments CONVERTED DISTRIBUTION AGENT CYTOLOGY Routine 05/04/2008 12:00 AM EST from Last 3 Months or Most Recently Relevant to Health Maintenance Results * CONVERTED DISTRIBUTION AGENT CYTOLOGY (05/04/2008 12:00 AM EST) Pathology Report Date of Procedure: 05/04/2008 Pathologist: Date Reported: 05/09/2008 Date Received: 05/07/2008 Submitting Physician: Conversion FINAL CYTOLOGICAL INTERPRETATION Satisfactory for evaluation. Transformation zone insufficient. Negative for squamous intraepithelial lesion or malignancy. - SCREENED BY: DYLAN FORREST (ASCP) Note: Pap smear testing is a screening procedure and subject to both false negative and false positive results as evidenced by published data. Your patient's test result should be interpreted in this context, together with patient's history and clinical findings. - Signed by: JESSICA ORTIZ [facility] 05/09/08 Electronically Signed Out By [facility], Cytology/ By the signature on this report, [...] Source of Specimen A: Unknown Part Type [facility] Department of Pathology [address] [place] CONVERTED FINAL DIAGNOSIS Satisfactory for evaluation. Transformation zone insufficient. Negative for squamous intraepithelial lesion or malignancy. - SCREENED BY: DYLAN FORREST (ASCP) Note: Pap smear testing is a screening procedure and subject to both false negative and false positive results as evidenced by published data. Your patient's test result should be interpreted in this context, together with patient's history and clinical findings. - Signed by: JESSICA ORTIZ [facility] 05/09/08 [facility] [place] CONVERTED CLINICAL DIAGNOSIS-HIST ORY - HISTORY & COMMENTS LMP: 02/14/08 Reflex HPV ordered if result is ASCUS [facility] PlasmonATH CONVERTED SLIDE-BLOCK DESCRIPTION - TISSUES - 1. CERVICAL THIN PREP - [facility] CONVERTED REPORT COMMENTS [place] Case # [id number] DOS: 05/04/08 - ORD PHYSICIAN: Jose Blackburn MD - ORD PROCEDURES - CYTO PAP TLP MAN / - COPIES TO: Jose Blackburn MD - Status History - ENT 05/07/08 1128 [address]IS DIAG 05/09/08 0750 JESSICA ORTIZ 05/09/08 1524 JESSICA ORTIZ - [place] Conversion Report - [facility] CONVERTED FINAL REPORT PDF LINK TO COPY AND PASTE \copathshare\copa th\PDF [id number] [facility] Unrecognized Part Type 05/04/2008 05/07/2008 11:28 AM EST us Copath Conversion LAB CYTOLOGY ORDERABLES Final Result [facility] COPATH [address] [place] [address] from Last 3 Months or Most Recently Relevant to Health Maintenance [facility] Care Teams Dietitian Research Relationship Specialty Start Date End Date Gay De La Torre APRN-ENERGY SPECIALIST [address] [id number] PCP - General 07/13/23 Michelle Jasmine APRN-ENERGY SPECIALIST Nurse Practitioner Cardiology 06/08/23 Kenneth Patel MD Consulting Physician Cardiology 06/23/23
--- OUTSIDE RECORDS SUMMARY | 2025-02-24 11:48 | XMS_ITS | Clinical Summary ---
Author Organization [facility] Address [id number] [address] [place] [address] Care Team Providers Care Highway Maintenance Technician Name Role Phone Unavailable Primary Care Provider [...] every 6 (six) hours as needed. Active diclofenac sodium (VOLTAREN ARTHRITIS PAIN) 1 [...] Apply 1 Application topically as needed. Active thiamine HCl (VITAMIN B-1) 100 mg tablet Take 1 tablet (100 mg total) by mouth in the morning. 4 02/07/20 25 Active Problems Problem Noted Date Diagnosed Date [...] Vaccines (1 - Tdap) 10/05/1999 COVID-19 Vaccine (6 - 2024-2 6 season) 2025 02/23/2023, 02/08/2022, 05/26/2021, Additional history exists Influenza Vaccine 01/22/2025 Adult BMI Screening 04/06/2025 04/06/2024 Tobacco Screening 04/06/2025 04/06/2024 Pap Smear 09/10/2025 09/10/2022 Medical Devices Not on file Insurance [employer]
--- OUTSIDE RECORDS SUMMARY | 2025-02-24 11:48 | XMS_ITS | Encounter Summary ---
Author Organization [facility] Address [address] [place] [address] Care Team Providers Care Retread Technician Name Role Phone Manuel Klein MD Unavailable [phone] Manuel Klein MD Primary Care Provider +-[phone] Manuel Klein MD Unavailable [phone] Source Comments In the event this information is protected by the Federal Confidentiality of Alcohol and Drug AbusePatient Records regulations: The Federal rules restrict any use of the information to criminally investigate or prosecute any alcohol or drug abuse patient.[facility] Encounter Details Date Type Department Care Team (Late st Contact Info) Description 02/18/2024 Get Medical Advice Rheumatology [address] [place], [place] [phone] Sandra Park MD [address] [place] [address] Referral Social History Tobacco Use [...] is lower risk 4 09/24/2022 Data from: https://www.neighborhoodatlas.medicine.[facility]/. Last address used for calculation [address] 09/24/2022 Comments No Sex and Gender [...] No 12/25/2014 11:14 AM EDT Chichi De Jeuss * Do you have serious difficulty walking [...] 2:00 PM EDT [facility] Hematology/Oncology [address] [place] [address] BENLYSTA - 03/21/2025 9:00 AM EDT Office Visit [facility] [address] [address] 4 week follow up IVIG - pt to see MASON for this appt per Fara 03/21/2025 9:20 AM EDT Visit (SP) Office Hematology/Oncology [address] [address] Jose Cho MD [address] [address] 4 week follow up IVIG - pt to see MASON for this appt per Fara 03/21/2025 9:40 AM EDT [facility]fusion [facility] Hematology/Oncology [address] [place] [address] Gabbi, Chair [address] [address] 4 week follow up IVIG - pt to see MASON for this appt per Fara 04/05/2025 2:00 PM EST Infusion Center Hematology/Oncology [address] [place] [address] BENLYSTA - 05/03/2025 2:00 PM EST [facility]fusion Center Hematology/Oncology [address] [place] [place] [address] BENLYSTA - documented as of this encounter Visit Diagnoses Diagnosis 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
--- OUTSIDE RECORDS SUMMARY | 2025-02-24 11:48 | XMS_ITS | Encounter Summary ---
Author Organization [facility] Address [address] [place] [address] Care Team Providers Care Build Technician Name Role Phone Manuel Klein MD Unavailable [phone] Manuel Klein MD Primary Care Provider +-[phone] Manuel Klein MD Unavailable [phone] Source Comments In the event this information is protected by the Federal Confidentiality of Alcohol and Drug AbusePatient Records regulations: The Federal rules restrict any use of the information to criminally investigate or prosecute any alcohol or drug abuse patient.[facility] Reason for Visit * Reason Comments Lab Orders Encounter Details Date Type Department Care Team (Late st Contact Info) Description 02/12/2025 Telephone Hematology/Oncology [address] [place] [address] [place] [address] Enma Hamm, filter tank tender Orders Social History Tobacco Use Types Packs/Day Years [...] is lower risk 4 09/24/2022 Data from: https://www.neighborhoodatlas.medicine.[facility]/. Last address used for calculation [address] 09/24/2022 Comments No Sex and Gender [...] Assessment Author No 12/25/2014 11:14 AM EDT Haroldo wu Chichi * Do you have serious difficulty walking [...] Assessment Author No 12/25/2014 11:14 AM EDT Joanna De Jesusra documented as of this encounter Mental Status * Because of a physical, mental, or emotional condition, do you have serious difficulty concentrating, remembering, or making decisions? Answer Entry Date Author No 12/25/2014 11:14 AM EDT Chichi De Jesus documented in this encounter Miscellaneous Notes * Telephone Encounter - Enma Hamm RN - 02/12/2025 10:21 AM EDT Labs placed for RTC 02/21/25. Enma Hamm RN documented in this encounter Plan of Treatment Upcoming Encounters Date Type Department Care Team (Latest Contact Info) Description 03/08/2025 2:00 PM EDT [facility] H[facility]ology[facility]Oncology [address] [place] [address] [place] [address] BENLYSTA - 03/21/2025 9:00 AM EDT Office Visit [facility] [address] [facility] [address] [place] [address] 4 week follow up IVIG - pt to see MASON for this appt per Fara 03/21/2025 9:20 AM EDT Visit (SP) Office Hematology/Oncology [address] [facility] [place] [address] Jose Cho MD [address] [facility] [address] [place] [address] 4 week follow up IVIG - pt to see MASON for this appt per Fara 03/21/2025 9:40 AM EDT Infusion Center Hematology/Oncology [address] [facility] [address] [place] [address] Gabbi, Chair 4 [address] [facility] [place] [address] 4 week follow up IVIG - pt to see MASON for this appt per Fara 04/05/2025 2:00 PM EST Infusion Center Hematology/Oncology [address] [facility] [address] [place] [address] BENLYSTA - 05/03/2025 2:00 PM [facility] Infusion Center Hematology/Oncology [address] [place] [address] BENLYSTA - documented as of this encounter Results * (ABNORMAL) IMMUNOGLOBULINS,IGG,IGA,IGM (02/21/2025 8:51 AM EDT) Pathologist [facility] IgG 610(L) 700 - 1,600 mg/dL 02/21/2025 6:21 PM EDT [facility] IgA 184 70 - 400 mg/dL 02/21/2025 6:21 PM EDT [facility] IgM 454(H) 40 - 230 mg/dL 02/21/2025 6:21 PM EDT [facility] Blood BLOOD SPECIMEN / Unknown Venipuncture / Unknown 02/21/2025 8:51 AM EDT 02/21/2025 8:51 AM EDT us Fara Lopez TELEPHONE MAINTAINER.PERFORMANCE TESTER LABORATORY Final Resul t [facility] [address] [id number], [place] * FOLATE, SERUM (02/21/2025 8:51 AM EDT) Folate >20.0 >4.7 ng/mL 02/21/2025 10:05 PM EDT [facility] Comment: A result of > 20 ng/mL is not necessarily indicative of a pathologic or treatable condition: it reflects a limitation of the test methodology. Assay reference range: 4.8 to 24.2 ng/mL. Suitable for detection of folate deficiency. Reference: Folate III (Folate III) [package insert V 1.0 Slovak]. [facility], [place], [place]: March 2015. Blood BLOOD SPECIMEN / Unknown Venipuncture / Unknown 02/21/2025 8:51 AM EDT 02/21/2025 8:51 AM EDT us Fara Lopez TELEPHONE MAINTAINER.PERFORMANCE TESTER LABORATORY Final Resul t Performing Organization Address City/[facility]/ZIP Co de Phone Number [facility] [address] [id number], [place] * VITAMIN B12 (02/21/2025 8:51 AM EDT) Vitamin B12 694 232 - 1,245 pg/mL 02/21/2025 10:05 PM EDT [facility] Blood BLOOD SPECIMEN / Unknown Venipuncture / Unknown 02/21/2025 8:51 AM EDT 02/21/2025 8:51 AM EDT us Fara Lopez TELEPHONE MAINTAINER.PERFORMAN[employer] TE[employer] LABORATORY Final Resul t [facility] [address] [id number], [place] * FERRITIN (02/21/2025 8:51 AM EDT) Ferritin 83.6 14.7 - 205.1 ng/mL 02/21/2025 10:05 PM EDT [facility] Blood BLOOD SPECIMEN / Unknown Venipuncture / Unknown 02/21/2025 8:51 AM EDT 02/21/2025 8:51 AM EDT Fara Lopez TELEPHONE MAINTAINER.[facility] Final Resul t Performing Organization Address City/[facility] Co de Phone Number [facility] [address] [place] [address], [place] * (ABNORMAL) IRON AND TIBC (02/21/2025 8:51 AM EDT) Pathologist [facility] Iron 156 41 - 186 ug/dL 02/21/2025 9:46 PM EDT [facility] TIBC 443(H) 232 - 386 ug/dL 02/21/2025 9:46 PM EDT [facility] Transferrin Saturation 35.2 15.0 - 57.0 % 02/21/2025 9:46 PM EDT [facility] Blood BLOOD SPECIMEN / Unknown Venipuncture / Unknown 02/21/2025 8:51 AM EDT 02/21/2025 8:51 AM EDT Fara Lopez APRN.[facility] Final Resul t Performing Organization Address City/[facility]/ZIP Co de Phone Number [facility] [address] [place] [address], [place] * (ABNORMAL) COMPREHENSIVE METABOLIC PANEL (02/21/2025 8:51 AM EDT) Protein, Total 7.6 6.3 - 8.0 g/dL 02/21/2025 9:45 AM EDT [facility] Albumin 4.3 3.9 - 4.9 g/dL 02/21/2025 9:45 AM EDT [facility] Calcium, Total 10.2 8.5 - 10.2 mg/dL 02/21/2025 9:45 AM [facility] Bilirubin, Total 0.3 0.2 - 1.3 mg/dL 02/21/2025 9:45 AM [facility] Alkaline Phosphatase 83 34 - 123 U/L 02/21/2025 9:45 AM [facility] AST 20 13 - 35 U/L 02/21/2025 9:45 AM [facility] ALT 49(H) 7 - 38 U/L 02/21/2025 9:45 AM [facility] Glucose 248(H) 74 - 99 mg/dL 02/21/2025 9:45 AM [facility] Comment: The [place] Diabetes Association (ADA) provides guidance for cutoff [...] Standards of Medical Care in Diabetes 2016, [place] Diabetes Association. Diabetes Care. 2016.39(Suppl 1). BUN 16 7 - 21 mg/dL 02/21/2025 9:45 AM [facility] Creatinine 0.49(L) 0.58 - 0.96 mg/dL 02/21/2025 9:45 AM [facility] Sodium 138 136 - 144 mmol/L 02/21/2025 9:45 AM [facility] Potassium 4.1 3.7 - 5.1 mmol/L 02/21/2025 9:45 AM [facility] Chloride 101 98 - 107 mmol/L 02/21/2025 9:45 AM [facility] CO2 20(L) 22 - 30 mmol/L 02/21/2025 9:45 AM EDT [facility] Anion Gap 17(H) 8 - 15 mmol/L 02/21/2025 9:45 AM EDT [facility] Estimated Glomerular Filtration Rate 119 >=60 mL/min/1. 73m 02/21/2025 9:45 AM EDT [facility] Comment:Estimated Glomerular Filtration Rate [...] BLOOD SPECIMEN / Unknown Venipuncture / Unknown 02/21/2025 8:51 AM EDT 02/21/2025 8:51 AM EDT us Fara Lopez TELEPHONE MAINTAINER.PERFORMAN[employer] TE[employer] LABORATORY Final Resul t [facility] [address] [place] [address] * (ABNORMAL) COMPLETE BLOOD COUNT AND DIFFERENTIAL (02/21/2025 8:51 AM EDT) WBC 13.16(H) 3.70 - 11.00 k/uL 02/21/2025 8:59 AM EDT [facility] RBC 4.77 3.90 - 5.20 m/uL 02/21/2025 8:59 AM EDT [facility] Hemoglobin 15.1 11.5 - 15.5 g/dL 02/21/2025 8:59 AM EDT [facility] Hematocrit 46.0 36.0 - 46.0 % 02/21/2025 8:59 AM EDT [facility] MCV 96.4 80.0 - 100.0 fL 02/21/2025 8:59 AM EDT [facility] MCH 31.7 26.0 - 34.0 pg 02/21/2025 8:59 AM EDT [facility] MCHC 32.8 30.5 - 36.0 g/dL 02/21/2025 8:59 AM EDT [facility] RDW-CV 14.3 11.5 - 15.0 % 02/21/2025 8:59 AM EDT [facility] Platelet Count 305 150 - 400 k/uL 02/21/2025 8:59 AM EDT [facility] MPV 9.9 9.0 - 12.7 fL 02/21/2025 8:59 AM EDT [facility] Neutrophils % 75.5 % 02/21/2025 8:59 AM EDT [facility] Abs Neut 9.94(H) 1.45 - 7.50 k/uL 02/21/2025 8:59 AM EDT [facility] Lymphocytes % 14.4 % 02/21/2025 8:59 AM EDT [facility] Abs Lymph 1.89 1.00 - 4.00 k/uL 02/21/2025 8:59 AM EDT [facility] Monocytes % 7.0 % 02/21/2025 8:59 AM EDT [facility] Abs [place] 0.92(H) <0.87 k/uL 02/21/2025 8:59 AM EDT [facility] Eosinophils % 0.8 % 02/21/2025 8:59 AM EDT [facility] Abs Eosin 0.11 <0.46 k/uL 02/21/2025 8:59 AM EDT [facility] Basophils % 0.7 % 02/21/2025 8:59 AM EDT [facility] Abs Baso 0.09 <0.11 k/uL 02/21/2025 8:59 AM EDT [facility] Immature Granulocytes % 1.6 % 02/21/2025 8:59 AM EDT [facility] Abs Immature Gran 0.21(H) <0.10 k/uL 02/21/2025 8:59 AM EDT [facility] NRBC 0.0 /100 WBC 02/21/2025 8:59 AM EDT [facility] Absolute nRBC <0.01 <0.01 k/uL 02/21/2025 8:59 AM EDT [facility] Diff Type Auto 02/21/2025 8:59 AM EDT [facility] Blood BLOOD SPECIMEN / Unknown Venipuncture / Unknown 02/21/2025 8:51 AM EDT 02/21/2025 8:51 AM EDT us Fara Lopez TELEPHONE MAINTAINER.PERFORMANCE TESTER LABORATORY Final Resul t [facility] [address] [place] [address] documented in this encounter Visit Diagnoses Diagnosis Hypogammaglobulinemia (HCC)- Primary Hypogammaglobulinaemia, unspecified Vitamin B12 deficiency Other B-complex deficiencies Other iron deficiency anemia documented in this encounter Care Teams Build Technician Relationship Specialty Start Date End Date Manuel Klein MD PCP - General Family Medicine 02/27/22 Manuel Klein MD Referring Family Medicine 02/12/22 Manuel Klein MD [address] [place] [address] Referring Family Medicine 07/06/24 documented as of this encounter
--- OUTSIDE RECORDS SUMMARY | 2025-02-24 11:48 | XMS_ITS | Encounter Summary ---
Author Organization [facility] Address [address] [place] [address] Care Team Providers Care Campaign Marketing Specialist Name Role Phone Manuel Klein MD Unavailable [phone] Manuel Klein MD Primary Care Provider +-4 Manuel Klein MD Unavailable [phone] Source Comments In the event this information is protected by the Federal Confidentiality of Alcohol and Drug AbusePatient Records regulations: The Federal rules restrict any use of the information to criminally investigate or prosecute any alcohol or drug abuse patient.[facility] Encounter Details Date Type Department Care Team (Late st Contact Info) Description 09/07/2022 Patient Msg Integrative and Lifestyle Medicine [address] [place] [address] Provider, Ccf Video Visit Social [...] N ot on file 08/09/2020 Data from: https://www.neighborhoodatlas.medicine.[facility]/. Last address used for calculation [...] Contact Info) Description 03/08/2025 2:00 PM EDT [facility]ology[facility]Oncology [address] [place] [address] BENLYSTA - 03/21/2025 9:00 AM EDT Office Visit [facility] [address] [place] [address] 4 week follow up IVIG - pt to see MASON for this appt per Fara 03/21/2025 9:20 AM EDT Visit (SP) Office Hematology/Oncology [address] [place] [address] Jose Cho MD [address] [place] [address] 4 week follow up IVIG - pt to see MASON for this appt per Fara 03/21/2025 9:40 AM EDT Infusion Center Hematology/Oncology [address] [facility] [place] [address] Gabbi, Chair [address] [place] [address] 4 week follow up IVIG - pt to see MASON for this appt per Fara 04/05/2025 2:00 PM EST Infusion Center Hematology/Oncology [address] [place] [address] [place] [address] BENLYSTA - 05/03/2025 2:00 PM [facility] Infusion Center Hematology/Oncology [address] [place] [address] [place] [address] BENLYSTA - documented as of this encounter Visit Diagnoses Not on filedocumented in this encounter Care Teams Campaign Marketing Specialist Relationship Specialty Start Date End Date Manuel Klein MD PCP - General Family Medicine 02/27/22 Manuel Klein MD Referring Family Medicine 02/12/22 Manuel Klein MD [address] [place] [address] Referring Family Medicine 07/06/24 documented as of this encounter
--- OUTSIDE RECORDS SUMMARY | 2025-02-24 11:48 | XMS_ITS | Encounter Summary ---
Author Organization [facility] Address [address] [place] [address] Care Team Providers Care Pairing Machine Operator Name Role Phone Manuel Klein MD Unavailable [phone] Manuel Klein MD Primary Care Provider [phone] Manuel Klein MD Unavailable [phone] Source Comments In the event this information is protected by the Federal Confidentiality of Alcohol and Drug AbusePatient Records regulations: The Federal rules restrict any use of the information to criminally investigate or prosecute any alcohol or drug abuse patient.[facility] Encounter Details Date Type Department Care Team (Late st Contact Info) Description 03/18/2022 Get Medical Advice Hematology/Oncology [facility] [place] [address] Jose Cho MD [facility] [address] [facility] [address] Blood work Social History Tobacco Use [...] N ot on file 08/09/2020 Data from: https://www.neighborhoodatlas.[facility]/. Last address used for calculation Not [...] back. No specific application for me though. Best, Dr. Zhou documented in this encounter Plan of Treatment Upcoming Encounters Date Type Department Care Team (Latest Contact Info) Description 03/08/2025 2:00 PM EDT Infusion Center Hematology/Oncology [address] [facility] [place] [address] BENLYSTA - 03/21/2025 9:00 AM EDT Office Visit [facility] [address] [place] [address] 4 week follow up IVIG - pt to see MASON for this appt per [facility]ara 03/21/2025 9:20 AM EDT Visit (SP) Office Hematology/Oncology [address] [facility] [place] [address] Jose Cho MD [address] [facility] [place] [address] 4 week follow up IVIG - pt to see MASON for this appt per [facility] 03/21/2025 9:40 AM EDT Infusion Center Hematology/Oncology [address] [facility] [place] [address] Gabbi, Chair [address] [facility] [place] [address] 4 week follow up IVIG - pt to see MASON for this appt per [facility] 04/05/2025 2:00 PM EST Infusion Center Hematology/Oncology [address] [place] [address] BENLYSTA - 05/03/2025 2:00 PM [facility] Infusion Center Hematology/Oncology [address] [facility] [place] [address] BENLYSTA - documented as of this encounter Visit Diagnoses Not on filedocumented in this encounter Care Teams Pairing Machine Operator Relationship Specialty Start Date End Date Manuel Klein MD PCP - General Family Medicine 02/27/22 Manuel Klein MD Referring Family Medicine 02/12/22 Manuel Klein MD [address] [place] [address] Referring Family Medicine 07/06/24 documented as of this encounter
--- OUTSIDE RECORDS SUMMARY | 2025-02-24 11:48 | XMS_ITS | Encounter Summary ---
Author Organization [facility] Address [address] [place] [address] Care Team Providers Care Draw Bench Operator Name Role Phone House, Charles Culver MD Primary Care Provider [phone] Gay De La Torre MD Unavailable [phone] Encounter Details Date Type Department Care Team (Late Contact Info) Description 09/29/2023 Clinisync Result Encounter [facility] External Department Unsolicited Zita Rogers, TRACTOR DRIVER TEAMSTER 5319 [facility] [address] [address] Social History Tobacco Use Types Packs/Day Years [...] AM EDT Consult [facility] [address] [facility] [address] [place] [phone] Terence Blum MD [address] [facility] 150 [place] [address] 03/19/2025 10:20 AM EDT Office Visit [facility] [address] [facility] [address] [place] [phone] Mary Grace Mejias MD 112 [facility] 130 [place] [address] 07/25/2025 11:00 AM EST Office Visit [facility] [address] [place] [address] Cynthia English MD [address] [place] [address] documented as of this encounter Procedures Procedure Name Priority Date/Time Associated Diagnosis Comments XR LUMBAR SPINE MIN 4V 09/29/2023 7:22 AM EDT documented in this encounter Results * XR LUMBAR SPINE MIN 4V (09/29/2023 7:22 AM EDT) Anatomical Region Laterality Modality Other 09/29/2023 7:22 AM EDT Narrative 09/29/2023 7:25 AM EDT [address] [address] XRay Report Signed Patient: JONES PANIAGUA MR#: [id number] : 1980 Acct:[id number] Age/Sex: 42 / F ADM Date: 09/28/23 Loc: RAD Attending Dr: ZITA ROGERS Ordering Physician: ZITA ROGERS Date of Service: 09/28/23 Procedure(s): XR lumbar spine min 4V Accession Number(s): [id number] cc: GAY DE LA TORRE ; ZITA ROGERS The [address] [address] Patient Name: JONES PANIAGUA MRN: [id number] date: 1980 Sex: F Assigned Patient Location: RAD Current Patient Location: Accession/Order Number: [id number] Exam Date: 09/28/2023 14:41 Report Date: 09/29/2023 07:22 At the request of: ZITA ROGERS Procedure: XR lumbar spine min 4V [...] M.D. Signed By: 09/29/2325 DD/ 1 TD/TT: Top Spotter: Procedure Note Radiology, Radiologist, MD - 09/29/2023 [place] [address] XRay Report Signed Patient: JONES PANIAGUA R#: [id number] : 1980Acct:[id number] Age/Sex: 42 / FADM Date: 09/28/23 Loc: [facility] Attending Dr: ZITA ROGERS Ordering Physician: ZITA ROGERS Date of Service: 09/28/23 Procedure(s): XR lumbar spine min 4V Accession Number(s): [id number] cc: GAY DE LA TORRE ; ZITA ROGERS The [place] [id number] Patient Name: JONES PANIAGUA MRN: [id number] date: 1980 Sex: F Assigned Patient Location: [facility] Current Patient Location: Accession/Order Number: [id number] Exam Date: 09/28/2023 14:41 Report Date: 09/29/2023 07:22 At the request of: ZITA ROGERS Procedure: XR lumbar spine min 4V [...] Shaikh M.D. Signed By:09/29/23724 DD/ 1 TD/TT: Top Spotter: us Zita Rogers TRACTOR DRIVER TEAMSTER [facility] Final Result documented in this encounter Visit Diagnoses Not on filedocumented in this encounter Care Teams Draw Bench Operator Relationship Specialty Start Date End Date Charles Nicole MD PCP - General Family Medicine 02/09/24 07/17/24 Gay De La Torre MD [address] [place], [place] [id number] Referring Physician Family Medicine 07/18/24 documented as of this encounter
--- OUTSIDE RECORDS SUMMARY | 2025-02-24 11:48 | XMS_ITS | Encounter Summary ---
Author Organization [facility] Address [facility] [place] [address] Care Team Providers Care Senior Materials Planner Name Role Phone Manuel Klein MD Unavailable [phone] Manuel Klein MD Primary Care Provider [phone] Manuel Klein MD Unavailable [phone] Source Comments In the event this information is protected by the Federal Confidentiality of Alcohol and Drug AbusePatient Records regulations: The Federal rules restrict any use of the information to criminally investigate or prosecute any alcohol or drug abuse patient.[facility] Encounter Details Date Type Department Care Team (Late st Contact Info) Description 07/27/2022 Patient Msg Neurology [address] [place] [address] Lexus Heck APRN.[place] [id number] Sleep Follow up Social History Tobacco Use [...] N ot on file 08/09/2020 Data from: https://www.neighborhoodatlas.medicine.[facility]/. Last address used for calculation [...] Info) Description 03/08/2025 2:00 PM EDT [facility] Center Hematology/Oncology [address] [place] [address] BENLYSTA - 03/21/2025 9:00 AM EDT Office Visit [facility] [address] [place] [address] [place] [address] 4 week follow up IVIG - pt to see MASON for this appt per [facility] 03/21/2025 9:20 AM EDT Visit (SP) Office Hematology/Oncology [address] [facility] [place] [address] Jose Cho MD [address] [place] [address] 4 week follow up IVIG - pt to see MASON for this appt per [facility] 03/21/2025 9:40 AM EDT Infusion Center Hematology/Oncology [address] [place] [address] Gabbi, Chair [address] [place] [address] 4 week follow up IVIG - pt to see MASON for this appt per [facility] 04/05/2025 2:00 PM EST Infusion Center Hematology/Oncology [address] [place] [address] BENLYSTA - 05/03/2025 2:00 PM [facility] Infusion Center Hematology/Oncology [address] [place] [address] BENLYSTA - documented as of this encounter Visit Diagnoses Not on filedocumented in this encounter Care Teams Senior Materials Planner Relationship Specialty Start Date End Date Manuel Klein MD PCP - General Family Medicine 02/27/22 Manuel Klein MD Referring Family Medicine 02/12/22 Manuel Klein MD [address] [place] [address] Referring Family Medicine 07/06/24 documented as of this encounter
--- OUTSIDE RECORDS SUMMARY | 2025-02-24 11:48 | XMS_ITS | Encounter Summary ---
Author Organization [facility] Address [address] [facility] [place] [address] Care Team Providers Care Iron Launder Operator Name Role Phone Gay De La Torre MD Unavailable [phone] Encounter Details Date Type Department Care Team (Latest Contact Info) Description 02/23/2025 Travel Social History Tobacco Use Types Packs/Day Years [...] AM EDT Consult [facility] [address] [address] Terence Blum MD 703 [facility] 150 [place] [address] 03/19/2025 10:20 AM EDT Office Visit [facility] [address] [facility] [address] [place] [address] Mary Grace Mejias MD 112 [facility] 130 [place] [address] 07/25/2025 11:00 AM EST Office Visit [facility] [address] [place] [phone] Cynthia English MD [address] [place] [address] documented as of this encounter Visit Diagnoses Not on filedocumented in this encounter Care Teams Iron Launder Operator Relationship Specialty Start Date End Date Gay De La Torre MD [address] [place] [address] Referring Physician Family Medicine 07/18/24 documented as of this encounter
--- OUTSIDE RECORDS SUMMARY | 2025-02-24 11:48 | XMS_ITS | Clinical Summary ---
Author Organization [facility] Address [address] [place] [id number] Care Team Providers Care Intelligence Operations Name Role Phone Manuel Klein MD Unavailable [phone] Manuel Klein MD Primary Care Provider [phone] Manuel Klein MD Unavailable [phone] Allergies Active Allergy Reactions Criticality Noted [...] see current settings/supplies/DM E information. 1 Each 05/05/20 22 2049 Active metoprolol tartrate, short acting, (LOPRESSOR) 50 mg tablet Take 100 mg by mouth two times a day. 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 HOLD IF ON ANTIBIOTICS OR ILL. 270 tablet 1 11/11/19 24 Active folic acid 1 mg tabletIndication s:Vitamin B12 deficiency Take 1 tablet by mouth once daily. 90 tablet 3 11/28/19 24 Active diphenhydrAMINE- maalox-lidocaine (BMX 1:1:1) 1:1:1 liqd Take 5 mL by mouth every 6 hours as needed. 500 mL 1 07/12/19 25 Active TRULICITY 0.75 mg/0.5 mL pen injector Inject 0.75 mg subcutaneously one time a week. Per PCP 07/30/19 25 Active belimumab (BENLYSTA) 200 mg/mL auto-injectorInd ications:Other systemic lupus erythematosus with other organ involvement (HCC) Inject 200mg (1 pen) subcutaneously once weekly 12 mL 3 09/19/19 25 Active ergocalciferol 50,000 unit capsule (VITAMIN D2, DRISDOL)Indicati ons:Vitamin D deficiency Take 1cap by mouth 3times a week x 10weeks, then once a week with food. 34 capsule 1 10/07/[address] (PROTONIX) 40 mg tablet TAKE 1 TABLET BY MOUTH 1/2 TO 1 HOUR BEFORE MORNING MEAL 10/22/19 25 Active tacrolimus (PROTOPIC) 0.1 % ointment APPLY TO AFFECTED AREA ON FOREHEAD TWICE A DAY NEEDED FOR FLARES, HOLD IF CLEAR 11/28/19 25 Active thiamine (VITAMIN B1) 100 mg tablet Take 100 mg by mouth every morning. 10/28/19 25 Active nystatin (MYCOSTATIN) 100,000 unit/mL suspension TAKE 4 ML BY MOUTH / THROAT 4 TIMES A DAY FOR 7 DAYS 11/07/19 25 Active LO LOESTRIN FE 1 mg-10 mcg (24)/10 mcg (2) Take 1 tablet by mouth once daily. 11/18/19 25 Active fluocinonide (LIDEX) 0.05 % external solution 11/30/19 25 Active DULoxetine (CYMBALTA) 20 mg capsule Take 1 capsule by mouth once daily. 11/28/19 25 Active clotrimazole (MYCELEX) 10 mg bk USE 1 BK WHILE ON IMMUNOSUPPRESSIVE MEDICINE BY MOUTH/THROAT 3 TIMES A DAY 10/24/19 25 Active Clobetasol Propionate 0.05 % sham 11/30/19 25 Active KLONOPIN 0.5 mg tablet 1 tablet Orally Once a day prn for 30 days F41.9 08/01/19 25 Active Clindamycin Phosphate (CLEOCIN T) 1 % lotion APPLY A THIN LAYER TO AFFECTED AREAS ON THE THIGHS ONCE A DAY 11/02/19 25 Active HIBICLENS 4 % external liquid 11/30/19 25 Active tretinoin (RETIN-A) 0.025 % topical cream Apply to face, once daily at evening/night time, 30 day supply 11/24/19 25 Active hydrOXYchloroQUI NE (PLAQUENIL) 200 mg tabletIndication s:CHRISTIAN positive,Other systemic lupus erythematosus with other organ involvement (HCC) TAKE 1 TAB TWICE A DAY WITH FOOD *SUNSCREEN WHILE OUTDOORS/OPHTHAMOLOG Y EVERY 6-12 MONTHS WHILE ON* 60 tablet 11 01/24/20 25 Active predniSONE (DELTASONE) 10 mg tabletIndication s:Other systemic lupus erythematosus with other organ involvement (HCC) Take 40mg daily x 3, decrease by 5mg every 3days until taking 10mg daily with food thereafter (no oral nsaids) 120 tablet 1 01/24/20 25 Active Active Problems Problem Noted Date Diagnosed Date Iron deficiency anemia 06/16/2024 Hypogammaglobulinemia 04/01/2024 Frequent infections 04/01/2024 History of vitamin D deficiency 10/05/2023 Chronic fatigue and malaise 06/10/2023 Bilateral wrist pain 02/04/2023 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 02/04/2023 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 Excessive [...] Encounters Date Type Department Care Team Description 02/21/2025 9:30 AM EDT Infusion Center Hematology/Oncolo gy [address] [place] [address] Frequent infections (Primary Dx); Hypogammaglobulinemia (HCC); Bilateral leg weakness; Discoid lupus erythematosus 02/21/2025 9:00 AM EDT Visit (SP) Office Hematology/Oncolo gy [address] [place], [place] [address] [place] [address] Fara Lopez APRN.NON DESTRUCTIVE TESTING SPECIALIST Frequent infections (Primary Dx); Hypogammaglobulinemia (HCC); Bilateral leg weakness; Discoid lupus erythematosus; Vitamin B12 deficiency; Shortness of breath; Other iron deficiency anemia; Malaise and fatigue 02/21/2025 Get Medical Advice Hematology/Oncolo [address] [place] [address] Provider, Ccf Blood work 02/21/2025 Telephone Cancer Appts [address] [place] [address] Fara Lopez APRN.NON DESTRUCTIVE TESTING SPECIALIST Results 02/12/2025 Telephone Hematology/Oncolo gy [address] [place] [address] [place] [address] Enma Hamm RN Lab Orders 02/08/2025 2:00 PM EDT Infusion Center Hematology/[facility] gy [address] [place] [address] [place] [address] Elevated sed rate (Primary Dx); Megaloblastic anemia due to vitamin B12 deficiency; Other systemic lupus erythematosus with other organ involvement (HCC) 02/06/2025 Orders Only Hematology/Oncolo gy [address] [place] [address] [place] [address] Jose Cho MD 01/24/2025 9:00 AM EDT Infusion Center Hematology/Oncol[facility] gy [address] [place] [address] [place] [address] Frequent infections (Primary Dx); Hypogammaglobulinemia (HCC); Bilateral leg weakness; Discoid lupus erythematosus; Elevated sed rate; Megaloblastic anemia due to vitamin B12 deficiency 01/24/2025 Orders Only Hematology/Oncolo gy [address] [place] [address] [place] [address] Jose Cho MD Frequent infections (Primary Dx); Hypogammaglobulinemia (HCC); Bilateral leg weakness; Discoid lupus erythematosus 01/23/2025 Refill Rheumatology [address] [place] [address] Sandra Park MD Refill Request 01/22/2025 Travel 01/18/2025 Telephone Rheumatology [address] [place] [address] Sandra Park MD Results 01/11/2025 2:00 PM EDT Infusion Center Hematology/[facility] gy [address] [place] [address] Other systemic lupus erythematosus with other organ involvement (HCC) (Primary Dx); Elevated LFTs; Anemia of chronic disease; Elevated sed rate; Elevated C-reactive protein (CRP); Vitamin D deficiency; Vitamin B12 deficiency; Screening-pulmonary TB 12/27/2024 9:00 AM EDT Infusion Center Hematology/[facility]col[facility] gy [address] [place] [address] Frequent infections (Primary Dx); Hypogammaglobulinemia (HCC); Bilateral leg weakness; Discoid lupus erythematosus; Elevated sed rate; Megaloblastic anemia due to vitamin B12 deficiency 12/20/2024 Orders Only Hematology/Oncolo gy [address] [place] [address] Neda Hill PAJuliusC 12/19/2024 Orders Only Hematology/Oncolo gy [address] [place] [address] Neda Hill PA-C 12/19/2024 Orders Only Hematology/Oncolo gy [address] [place] [address] Rebekah Rojas APRN.NON DESTRUCTIVE TESTING SPECIALIST 12/14/2024 2:00 PM EDT Infusion Center Hematology/Oncolo gy [address] [place] [address] Other systemic lupus erythematosus with other organ involvement (HCC) (Primary Dx) 12/14/2024 Abstract Neurology [address] [place] [address] [facility] CMN 12/14/2024 Orders Only Rheumatology [address] [place] [address] Sandra Park MD 12/12/2024 Travel 11/30/2024 Results Follow-Up Hematology/Oncolo gy [address] [place] [address] [place] [address] Fara Lopez APRN.NON DESTRUCTIVE TESTING SPECIALIST Results 11/29/2024 9:30 AM EDT Infusion Center Hematology/Oncolo gy [address] [place] [address] [place] [address] Elevated sed rate (Primary Dx); Megaloblastic anemia due to vitamin B12 deficiency; Frequent infections; Hypogammaglobulinemia (HCC); Bilateral leg weakness; Discoid lupus erythematosus 11/29/2024 9:00 AM EDT Visit (SP) Office Hematology/Oncolo gy [address] [place] [address] [place] [address] Fara Lopez APRN.CNP Hypogammaglobulinemia (HCC) (Primary Dx); Vitamin B12 deficiency; Other iron deficiency anemia; Malaise and fatigue; Shortness of breath; Other specified disorders of breast; Pre-diabetes; Gastro-esophageal reflux disease without esophagitis 11/29/2024 Orders Only Hematology/Oncolo gy [address] [place] [address] [place] [address] Fara Lopez APRN.CNP Frequent infections; Hypogammaglobulinemia (HCC); Bilateral leg weakness; Discoid lupus erythematosus 11/29/2024 Travel from Last 3 Months Immunizations Immunization Administration Dates Next Due COVID-19 vaccine, age 12+ yr (RSVP Law [facility]) 02/23/2023 Family History Medical History Relation Comments [...] is lower risk 4 09/24/2022 Data from: https://www.neighborhoodatlas.[facility]/. Last address used for calculation [address] 09/24/2022 Comments No Sex and Gender [...] Mass Index 44.91 02/21/2025 9:13 AM EDT Plan of Treatment Upcoming Encounters Date Type Department Care Team (Latest Contact Info) Description 03/08/2025 2:00 PM EDT Infusion Center Hematology/Oncology [facility] [place] [place] [address] BENLYSTA - 03/21/2025 9:00 AM EDT Office Visit [facility] [address] [place] [address] 4 week follow up IVIG - pt to see MASON for this appt per Fara 03/21/2025 9:20 AM EDT Visit (SP) Office Hematology/Oncology [address] [place] [address] Jose Cho MD [address] [place] [address] 4 week follow up IVIG - pt to see MASON for this appt per Fara 03/21/2025 9:40 AM EDT Infusion Center Hematology/Oncology [facility] [place] [address] Gabbi, Chair [address] [place] [address] [place] [address] 4 week follow up IVIG - pt to see MASON for this appt per Fara 04/05/2025 2:00 PM [facility] Infusion Center Hematology/Oncology [address] [facility] [place] [address] BENLYSTA - 05/03/2025 2:00 PM [facility] Infusion Center Hematology/Oncology [address] [facility] [place] [address] BENLYSTA - Health Maintenance Due Date Last Done Comments Cervical Cancer Screening 10/05/1991 Anxiety Screening 1998 HIV Screening 1998 DTaP,Tdap,Td Vaccine (1 - Tdap) 10/05/1999 Pneumococcal Vaccine (1 of 2 - PCV) 10/05/1999 Shingrix Vaccine (1 of 2) 10/05/1999 HPV Vaccine (1 - Risk 3-dose SCDM series) 10/05/2007 Mammogram Screening 2020 Covid-19 Vaccine (6 - 2024-2 6 season) 2025 02/23/2023, 02/08/2022, 05/26/2021, Additional history exists Influenza Vaccine (#1) 2025 Hepatitis C Screening Completed 01/11/2025, 021 Procedures Procedure Name Priority Date/Time Associated Diagnosis Comments IMMUNOGLOBULINS MARGIE Routine 02/21/2025 8 :51 AM EDT Hypogammaglobuline hi (HCC) Vitamin B12 deficiency Other iron deficiency anemia FOLATE SERUM Routine 02/21/2025 8:51 AM EDT Hypogammaglobuline hi (HCC) Vitamin B12 deficiency Other iron deficiency anemia VITAMIN B12 BLOOD Routine 02/21/2025 8:5 1 AM EDT Hypogammaglobuline hi (HCC) Vitamin B12 deficiency Other iron deficiency anemia FERRITIN BLD Routine 02/21/2025 8:51 AM EDT Hypogammaglobuline hi (HCC) Vitamin B12 deficiency Other iron deficiency anemia IRON + TIBC Routine 02/21/2025 8:51 AM EDT Hypogammaglobuline hi (HCC) Vitamin B12 deficiency Other iron deficiency anemia COMPREHENSIVE METABOLIC PANEL Routine 02/21/2025 8:51 AM EDT Hypogammaglobuline hi (HCC) Vitamin B12 deficiency Other iron deficiency anemia CBC + DIFF Routine 02/21/2025 8:51 AM EDT Hypogammaglobuline hi (HCC) Vitamin B12 deficiency Other iron deficiency anemia HEP B CORE AB TOTAL Routine 01/11/2025 1 :48 PM EDT Elevated LFTs HEP B SURF AB QUAL Routine 01/11/2025 1: 48 PM EDT Elevated LFTs HEP B SURF AG SCRN Routine 01/11/2025 1: 48 PM EDT Elevated LFTs HEPATITIS C ANTIBODY IA WITH CONFIRMATION Routine 01/11/2025 1:48 PM EDT Elevated LFTs BLOOD TB SCREEN Routine 01/11/2025 1:48 PM EDT Screening-pulmonar y TB HEP REMOTE PANEL BL Routine 01/11/2025 1 :48 PM EDT Elevated LFTs VITAMIN B12 BLOOD Routine 01/11/2025 1:4 8 PM EDT Vitamin B12 deficiency VITAMIN D 25 HYDROXY Routine 01/11/2025 1:48 PM EDT Vitamin D deficiency C-REACTIVE PROTEIN (CRP) Routine 01/11/2025 1:48 PM EDT Elevated sed rate Elevated C-reactive protein (CRP) SED RATE WESTERGREN Routine 01/11/2025 1 :48 PM EDT Elevated sed rate Elevated C-reactive protein (CRP) COMPLETE BLOOD COUNT Routine 01/11/2025 1:48 PM EDT Anemia of chronic disease COMPREHENSIVE METABOLIC PANEL Routine 01/11/2025 1:48 PM EDT Elevated LFTs IMMUNOGLOBULINS MARGIE Routine 11/29/2024 8 :40 AM EDT Hypogammaglobuline hi (HCC) VITAMIN B12 BLOOD Routine 11/29/2024 8:4 0 AM EDT Hypogammaglobuline hi (HCC) FOLATE SERUM Routine 11/29/2024 8:40 AM EDT Hypogammaglobuline hi (HCC) IRON + TIBC Routine 11/29/2024 8:40 AM EDT Hypogammaglobuline hi (HCC) FERRITIN BLD Routine 11/29/2024 8:40 AM EDT Hypogammaglobuline hi (HCC) COMPREHENSIVE METABOLIC PANEL Routine 11/29/2024 8:40 AM EDT Hypogammaglobuline hi (HCC) CBC + DIFF Routine 11/29/2024 8:40 AM EDT Hypogammaglobuline hi (HCC) from Last 3 Months Results * VITAMIN B12 (02/21/2025 8:51 AM EDT) Only the most recent of3 resultswithin the time period is included. Vitamin B12 694 232 - 1,245 pg/mL 02/21/2025 10:05 PM EDT [facility] Blood BLOOD SPECIMEN / Unknown Venipuncture / Unknown 02/21/2025 8:51 AM EDT 02/21/2025 8:51 AM EDT us Fara Lopez DIRECTOR OF OPERATIONS.NON DESTRUCTIVE TESTING SPECIALIST LABORATORY Final Resul t [facility] [address] [facility] [address] [address], * (ABNORMAL) IRON AND TIBC (02/21/2025 8:51 AM EDT) Only the most recent of2 resultswithin the time period is included. Iron 156 41 - 186 ug/dL 02/21/2025 9:46 PM EDT [facility] TIBC 443(H) 232 - 386 ug/dL 02/21/2025 9:46 PM EDT [facility] Transferrin Saturation 35.2 15.0 - 57.0 % 02/21/2025 9:46 PM EDT [facility] Blood BLOOD SPECIMEN / Unknown Venipuncture / Unknown 02/21/2025 8:51 AM EDT 02/21/2025 8:51 AM EDT Fara Lopez DIRECTOR OF OPERATIONS.[facility] LABORATORY Final Resul t Performing Organization Address [facility] de Phone Number [facility] [address] [address], [place] * (ABNORMAL) IMMUNOGLOBULINS,IGG,IGA,IGM (02/21/2025 8:51 AM EDT) Only the most recent of2 resultswithin the time period is included. IgG 610(L) 700 - 1,600 mg/dL 02/21/2025 6:21 PM EDT [facility] IgA 184 70 - 400 mg/dL 02/21/2025 6:21 PM EDT [facility] IgM 454(H) 40 - 230 mg/dL 02/21/2025 6:21 PM EDT [facility] Blood BLOOD SPECIMEN / Unknown Venipuncture / Unknown 02/21/2025 8:51 AM EDT 02/21/2025 8:51 AM EDT Fara Lopez DIRECTOR OF OPERATIONS.[facility] Final Resul t Performing Organization Address [facility] Co de Phone Number [facility] [address] [place] [address], [place] * FOLATE, SERUM (02/21/2025 8:51 AM EDT) Only the most recent of2 resultswithin the time period is included. [facility] Folate >20.0 >4.7 ng/mL 02/21/2025 10:05 PM EDT [facility] Comment: A result of > 20 ng/mL is not necessarily indicative of a pathologic or treatable condition: it reflects a limitation of the test methodology. Assay reference range: 4.8 to 24.2 ng/mL. Suitable for detection of folate deficiency. Reference: Folate III (Folate III) [package insert V 1.0 Kyrgyz]. [employer], [place], [place]: March 2015. Blood BLOOD SPECIMEN / Unknown Venipuncture / Unknown 02/21/2025 8:51 AM EDT 02/21/2025 8:51 AM EDT Fara Lopez DIRECTOR OF OPERATIONS.[facility] Final Resul t Performing Organization Address City/[facility]/ZIP Co de Phone Number [facility] [address] [place] [address], [place] * FERRITIN (02/21/2025 8:51 AM EDT) Only the most recent of2 resultswithin the time period is included. [facility] Ferritin 83.6 14.7 - 205.1 ng/mL 02/21/2025 10:05 PM EDT [facility] Blood BLOOD SPECIMEN / Unknown Venipuncture / Unknown 02/21/2025 8:51 AM EDT 02/21/2025 8:51 AM EDT Fara Lopez DIRECTOR OF OPERATIONS.[facility] Final Resul t [facility] [address] [place] [address], [place] * (ABNORMAL) COMPREHENSIVE METABOLIC PANEL (02/21/2025 8:51 AM EDT) Only the most recent of3 resultswithin the time period is included. [facility] Protein, Total 7.6 6.3 - 8.0 g/dL 02/21/2025 9:45 AM EDT [facility] Albumin 4.3 3.9 - 4.9 g/dL 02/21/2025 9:45 AM T [facility] Calcium, Total 10.2 8.5 - 10.2 mg/dL 02/21/2025 9:45 AM EDT [facility] Bilirubin, Total 0.3 0.2 - 1.3 mg/dL 02/21/2025 9:45 AM [facility] Alkaline Phosphatase 83 34 - 123 U/L 02/21/2025 9:45 AM T [facility] AST 20 13 - 35 U/L 02/21/2025 9:45 AM [facility] ALT 49(H) 7 - 38 U/L 02/21/2025 9:45 AM [facility] Glucose 248(H) 74 - 99 mg/dL 02/21/2025 9:45 AM [facility] Comment: The [place] Diabetes Association (ADA) provides guidance for cutoff [...] Standards of Medical Care in Diabetes 2016, [employer] Diabetes Association. Diabetes Care. 2016.39(Suppl 1). BUN 16 7 - 21 mg/dL 02/21/2025 9:45 AM [facility] Creatinine 0.49(L) 0.58 - 0.96 mg/dL 02/21/2025 9:45 AM [facility] Sodium 138 136 - 144 mmol/L 02/21/2025 9:45 AM [facility] Potassium 4.1 3.7 - 5.1 mmol/L 02/21/2025 9:45 AM EDT [facility] Chloride 101 98 - 107 mmol/L 02/21/2025 9:45 AM EDT [facility] CO2 20(L) 22 - 30 mmol/L 02/21/2025 9:45 AM EDT [facility] Anion Gap 17(H) 8 - 15 mmol/L 02/21/2025 9:45 AM EDT [facility] Estimated Glomerular Filtration Rate 119 >=60 mL/min/1. 73m 02/21/2025 9:45 AM EDT [facility] Comment:Estimated Glomerular Filtration Rate [...] 02/21/2025 8:51 AM EDT us Fara Lopez APRN.[facility] Final Resul t [facility] [address] [place] [address] * (ABNORMAL) COMPLETE BLOOD COUNT AND DIFFERENTIAL (02/21/2025 8:51 AM EDT) Only the most recent of2 resultswithin the time period is included. WBC 13.16(H) 3.70 - 11.00 k/uL 02/21/2025 8:59 AM EDT [facility] RBC 4.77 3.90 - 5.20 m/uL 02/21/2025 8:59 AM EDT [facility] Hemoglobin 15.1 11.5 - 15.5 g/dL 02/21/2025 8:59 AM EDT [facility] Hematocrit 46.0 36.0 - 46.0 % 02/21/2025 8:59 AM EDT [facility] MCV 96.4 80.0 - 100.0 fL 02/21/2025 8:59 AM EDT [facility] MCH 31.7 26.0 - 34.0 pg 02/21/2025 8:59 AM EDT [facility] MCHC 32.8 30.5 - 36.0 g/dL 02/21/2025 8:59 AM EDT [facility] RDW-CV 14.3 11.5 - 15.0 % 02/21/2025 8:59 AM EDT [facility] Platelet Count 305 150 - 400 k/uL 02/21/2025 8:59 AM EDT [facility] MPV 9.9 9.0 - 12.7 fL 02/21/2025 8:59 AM EDT [facility] Neutrophils % 75.5 % 02/21/2025 8:59 AM EDT [facility] Abs Neut 9.94(H) 1.45 - 7.50 k/uL 02/21/2025 8:59 AM EDT [facility] Lymphocytes % 14.4 % 02/21/2025 8:59 AM EDT [facility] Abs Lymph 1.89 1.00 - 4.00 k/uL 02/21/2025 8:59 AM EDT [facility] Monocytes % 7.0 % 02/21/2025 8:59 AM EDT [facility] Abs [place] 0.92(H) <0.87 k/uL 02/21/2025 8:59 AM EDT [facility] Eosinophils % 0.8 % 02/21/2025 8:59 AM EDT [facility] Abs Eosin 0.11 <0.46 k/uL 02/21/2025 8:59 AM EDT [facility] Basophils % 0.7 % 02/21/2025 8:59 AM EDT [facility] Abs Baso 0.09 <0.11 k/uL 02/21/2025 8:59 AM EDT [facility] Immature Granulocytes % 1.6 % 02/21/2025 8:59 AM EDT [facility] Abs Immature Gran 0.21(H) <0.10 k/uL 02/21/2025 8:59 AM EDT [facility] NRBC 0.0 /100 WBC 02/21/2025 8:59 AM EDT [facility] Absolute nRBC <0.01 <0.01 k/uL 02/21/2025 8:59 AM EDT [facility] Diff Type Auto 02/21/2025 8:59 AM EDT [facility] Blood BLOOD SPECIMEN / Unknown Venipuncture / Unknown 02/21/2025 8:51 AM EDT 02/21/2025 8:51 AM EDT us Fara Lopez DIRECTOR OF OPERATIONS.NON DESTRUCTIVE TESTING SPECIALIST LABORATORY Final Resul t [facility] [address] [place] [address] * BLOOD TB SCREEN (01/11/2025 1:48 PM EDT) TB Nil 0.03 <=8.00 IU/mL 01/13/2025 9:22 PM EDT [facility] TB1 Ag minus Nil 0.01 <0.35 IU/mL 01/13/2025 9:22 PM EDT [facility] TB2 Ag minus Nil 0.01 <0.35 IU/mL 01/13/2025 9:22 PM EDT [facility] TB Result Negative 01/13/2025 9:22 PM EDT [facility] Mitogen minus Nil >9.97 >=0.50 IU/mL 01/13/2025 9:22 PM EDT [facility] TB Gamma Interpretation Infection with M. tuberculosis complex is unlikely. If latent tuberculosis infection is highly suspected, a negative result does not rule out the infection. Specimens from immunocompromised patients and those <5 years of age may show false negative results. In case of a contact investigation, please repeat 8-12 weeks after a known exposure. 01/13/2025 9:22 PM EDT [facility] Blood BLOOD SPECIMEN / Unknown Venipuncture / Unknown 01/11/2025 1:48 PM EDT 01/11/2025 2:06 PM EDT us Sandra Park MD LABORATORY Final Result Performing Organization Address City/[facility]/ZIP Co de Phone Number [facility] [address] [place] [address], [place] * VITAMIN D 25 HYDROXY (01/11/2025 1:48 PM EDT) Vitamin D 25 Hydroxy 32.2 31.0 - 80.0 ng/mL 01/12/2025 1:27 PM EDT [facility] Blood BLOOD SPECIMEN / Unknown Venipuncture / Unknown 01/11/2025 1:48 PM EDT 01/11/2025 2:06 PM EDT us Sandra Park MD LABORATORY Final Result Performing Organization Address City/[facility] Co de Phone Number [facility] [address] [place] [id number], [place] * (ABNORMAL) SEDIMENTATION RATE, WESTERGREN (01/11/2025 1:48 PM EDT) Sed Rate, Westergren 34(H) 0 - 20 mm/hr 01/12/2025 1:02 AM EDT [facility] Blood BLOOD SPECIMEN / Unknown Venipuncture / Unknown 01/11/2025 1:48 PM EDT 01/11/2025 2:06 PM EDT us Sandra Park MD LABORATORY Final Result Performing Organization Address City/[facility]/ZIP Co de Phone Number [facility] [address] [place] [id number], [place] * HEPATITIS B SURFACE ANTIGEN (01/11/2025 1:48 PM EDT) HBsAg Negative Negative 01/12/2025 11:45 AM EDT [facility] Blood BLOOD SPECIMEN / Unknown Venipuncture / Unknown 01/11/2025 1:48 PM EDT 01/11/2025 2:06 PM EDT Sandra Park MD LABORATORY Final Result Performing Organization Address [facility]/ZIP Co de Phone Number [facility] [address] [id number], [place] * HEPATITIS B SURFACE ANTIBODY (01/11/2025 1:48 PM EDT) Hep B Surface Ab, Qual Positive 01/12/2025 11:44 AM EDT [facility] Comment:Consistent with sero logical evidence of immunity to Hepatitis B Virus. Hep B Surface Ab Quant 177.77 mIU/mL 01/12/2025 11:44 AM EDT [facility] Comment: <8 mIU/mL: No serological evidence of immunity to Hepatitis B Virus. >/= 8 to <12 mIU/mL: No serological evidence of immunity to Hepatitis B Virus. >/= 12 mIU/mL: Consistent with serological evidence of immunity to Hepatitis B Virus. Blood BLOOD SPECIMEN / Unknown Venipuncture / Unknown 01/11/2025 1:48 PM EDT 01/11/2025 2:06 PM EDT Sandra Park MD LABORATORY Final Result Performing Organization Address City/[facility]/ZIP Co de Phone Number [facility] [address] [id number], [place] * HEPATITIS B CORE ANTIBODY TOTAL (01/11/2025 1:48 PM EDT) Hepatitis B Core Ab, Total Negative Negative 01/12/2025 11:47 AM EDT [facility] Comment:No evidence of curre nt or past infection with Hepatitis B virus. Should recent infection be suspected, repeat testing may be considered 3-4 weeks after this draw. Blood BLOOD SPECIMEN / Unknown Venipuncture / Unknown 01/11/2025 1:48 PM EDT 01/11/2025 2:06 PM EDT us Sandra Park MD LABORATORY Final Result [facility] [address] [facility] [address] [place] [address], * (ABNORMAL) COMPLETE BLOOD COUNT (01/11/2025 1:48 PM EDT) WBC 12.61(H) 3.70 - 11.00 k/uL 01/11/2025 2:10 PM EDT [facility] RBC 4.29 3.90 - 5.20 m/uL 01/11/2025 2:10 PM EDT [facility] Hemoglobin 13.8 11.5 - 15.5 g/dL 01/11/2025 2:10 PM EDT [facility] Hematocrit 41.5 36.0 - 46.0 % 01/11/2025 2:10 PM EDT [facility] MCV 96.7 80.0 - 100.0 fL 01/11/2025 2:10 PM EDT [facility] MCH 32.2 26.0 - 34.0 pg 01/11/2025 2:10 PM EDT [facility] MCHC 33.3 30.5 - 36.0 g/dL 01/11/2025 2:10 PM EDT [facility] RDW-CV 14.5 11.5 - 15.0 % 01/11/2025 2:10 PM EDT [facility] Platelet Count 265 150 - 400 k/uL 01/11/2025 2:10 PM EDT [facility] MPV 10.6 9.0 - 12.7 fL 01/11/2025 2:10 PM EDT [facility] Absolute nRBC <0.01 <0.01 k/uL 01/11/2025 2:10 PM EDT [facility] Blood BLOOD SPECIMEN / Unknown Venipuncture / Unknown 01/11/2025 1:48 PM EDT 01/11/2025 2:06 PM EDT us Sandra Park MD LABORATORY Final Result [facility] [address] [place] [address] * C-REACTIVE PROTEIN (01/11/2025 1:48 PM EDT) [facility] CRP <0.3 <0.9 mg/dL 01/12/2025 3:28 AM EDT [facility] Blood BLOOD SPECIMEN / Unknown Venipuncture / Unknown 01/11/2025 1:48 PM EDT 01/11/2025 2:06 PM EDT us Sandra Park MD LABORATORY Final Result Performing Organization Address City/[facility]/ZIP Co de Phone Number [facility] [address] [place] [address], * HEPATITIS C ANTIBODY IA WITH CONFIRMATION (01/11/2025 1:48 PM EDT) Pathologist [facility] Hep C Antibody IA Negative Negative 01/12/2025 11:34 AM EDT [facility] Comment:The result suggests no evidence of infection with Hepatitis C virus. Should recent infection be suspected, repeat testing may be considered 4-6 weeks after this draw. Blood BLOOD SPECIMEN / Unknown Venipuncture / Unknown 01/11/2025 1:48 PM EDT 01/11/2025 2:06 PM EDT us Sandra Park MD LABORATORY Final Result [facility] [address] [facility] [place] [id number], [place] from Last 3 Months Insurance Member Subscriber Plan / Payer (Ef fective 2022-Present) Name:Ariadna Paniagua Relation to Subscriber:Self Name:Ariadna Paniagua Payer ID:[id number] (NAIC) Group ID:[id number] Type:Medicaid Address: [place] [id number] Care Teams Intelligence Operations Relationship Specialty Start Date End Date Manuel Klein MD PCP - General Family Medicine 02/27/22 Manuel Klein MD Referring Family Medicine 02/12/22 Manuel Klein MD [address] [place] [address] Referring Family Medicine 07/06/24
--- OUTSIDE RECORDS SUMMARY | 2025-02-24 11:48 | XMS_ITS | Encounter Summary ---
Author Organization [facility] Address [address] [place] [address] Care Team Providers Care Auto Parker Name Role Phone Manuel Klein MD Unavailable Manuel Klein MD Primary Care Provider [phone] Manuel Klein MD Unavailable [phone] Source Comments In the event this information is protected by the Federal Confidentiality of Alcohol and Drug AbusePatient Records regulations: The Federal rules restrict any use of the information to criminally investigate or prosecute any alcohol or drug abuse patient.[facility] Encounter Details Date Type Department Care Team (Late st Contact Info) Description 07/09/2022 Patient [facility] [address] [place] [address] Christie Phan MD [address] [place] [address] Appointment Follow-UP Social History Tobacco [...] N ot on file 08/09/2020 Data from: [email or web address] Last address used for calculation Not on [...] Contact Info) Description 03/08/2025 2:[address] [facility] Hematology/Oncology [address] [place] [address] BENLYSTA - 03/21/2025 9:00 AM EDT Office Visit [facility] [address] [place] [address] [place] [address] 4 week follow up IVIG - pt to see MASON for this appt per [facility] 03/21/2025 9:20 AM EDT Visit (SP) Office Hematology/Oncology [address] [place] [address] Jose Cho MD [address] [place] [address] 4 week follow up IVIG - pt to see MASON for this appt per [facility] 03/21/2025 9:40 AM EDT Infusion Center Hematology/Oncology [address] [place] [address] Gabbi, Chair [address] [place] [address] 4 week follow up IVIG - pt to see MASON for this appt per [facility] 04/05/2025 2:00 PM EST Infusion Center Hematology/Oncology [address] [place] [address] BENLYSTA - 05/03/2025 2:00 PM EST Infusion Center Hematology/Oncology [address] [place] [address] BENLYSTA - documented as of this encounter Visit Diagnoses Not on filedocumented in this encounter Care Teams Auto Parker Relationship Specialty Start Date End Date Manuel Klein MD PCP - General Family Medicine 02/27/22 Manuel Klein MD Referring Family Medicine 02/12/22 Manuel Klein MD [address] [place] [address] Referring Family Medicine 07/06/24 documented as of this encounter
--- OUTSIDE RECORDS SUMMARY | 2025-02-24 11:48 | XMS_ITS | Encounter Summary ---
Author Organization [facility] Address [address] [place] [address] Care Team Providers Care Cyber Defense Incident Responder Name Role Phone Gay De La Torre MD Unavailable [phone] Encounter Details Date Type Department Care Team (Late Contact Info) Description 02/14/2025 Bamboo flowsheet [facility] [address] [facility] 350 [place] [phone] Cynthia English MD [address] [facility] 350 [place] [address] Social History Tobacco Use Types Packs/Day Years [...] AM EDT Consult [facility] 703 [facility] 150 [place] [phone] Terence Blum MD 703 [facility] 150 [place] [address] 03/19/2025 10:20 AM EDT Office Visit [facility] [address] [place] [phone] Mary Grace Mejias MD 112 [facility] 130 [place] [address] 07/25/2025 11:00 AM EST Office Visit [facility] [facility] [address] [place] [address] Cynthia English MD [address] [place] [address] documented as of this encounter Visit Diagnoses Not on filedocumented in this encounter Care Teams Cyber Defense Incident Responder Relationship Specialty Start Date End Date Gay De La Torre MD [address] [place] [address] Referring Physician Family Medicine 07/18/24 documented as of this encounter
--- OUTSIDE RECORDS SUMMARY | 2025-02-24 11:48 | XMS_ITS | Encounter Summary ---
Author Organization [facility] Address [address] [facility] [place] [address] Care Team Providers Care Gas Engine Performance Engineer Name Role Phone House, Charles Culver MD Primary Care Provider Gay De La Torre MD Unavailable [phone] Encounter Details Date Type Department Care Team (Late Contact Info) Description 11/18/2023 Clinisync Result Encounter [facility] External Department Unsolicited Katy Valdivia, DO [address] [facility] [place]am [place], [place] [phone] Social History Tobacco Use Types Packs/Day Years [...] Encounters Date Type Department Care Team (Late Contact Info) Description 02/28/2025 9:30 AM EDT Consult [facility] 703 [facility] 150 [place] [address] Terence Blum MD 703 [facility] 150 [place] [address] 03/19/2025 10:20 AM EDT Office Visit [facility] [address] [place] [address] Mary Grace Mejias MD [address] [place] [address] 07/25/2025 11:00 AM EST Office Visit [facility] [address] [place] [address] Cynthia English MD [address] [place] [address] documented as of this encounter Procedures [...] EDT Narrative 11/18/2023 4:42 PM EDT The [address] [address] Ultrasound Report Signed Patient: JONES PANIAGUA MR#: [id number] : 1980 Acct:[id number] Age/Sex: 43 / F ADM Date: 11/18/23 Loc: US Attending Dr: Katy Valdivia D.O. Ordering Physician: Katy Valdivia D.O. Date of Service: 11/18/23 Procedure(s): US pelvis w/ transvaginal Accession Number(s): [id number] cc: GAY DE LA TORRE ; Katy Valdivia D.O. The [place] [id number] Patient Name: JONES PANIAGUA MRN: [id number] date: 1980 Sex: F Assigned Patient Location: US Current Patient Location: US Accession/Order Number: [id number] Exam Date: 11/18/2023 14:00 Report Date: 11/18/2023 [...] Signed By: 11/18/23 1642 DD/ 1639 TD/TT: Rail Car Painter/Sandblaster: Procedure Note Radiology, Radiologist, MD - 11/18/2023 [place] [address] Ultrasound Report Signed Patient: JONES PANIAGUA BMR#: [id number] : 1980Acct:[id number] Age/Sex: 43 / FADM Date: 11/18/23 Loc: US Attending Dr: Katy Valdivia D.O. Ordering Physician: Katy Valdivia D.O. Date of Service: 11/18/23 Procedure(s): US pelvis w/ transvaginal Accession Number(s): [id number] cc: GAY DE LA TORRE ; Katy Valdivia D.O. [place] [address] Patient Name: JONES PANIAGUA MRN: [facility]:[id number] date: 1980 Sex: F Assigned Patient Location: US Current Patient Location: US Accession/Order Number: [id number] Exam Date: 11/18/2023 14:00 Report Date: 11/18/2023 [...] M.D. Signed By:11/18/23 1642 DD/ 1639 TD/TT: Rail Car Painter/Sandblaster: us Katy Valdivia DO [facility] Final Result * (ABNORMAL) ALL DEHYDROEPIANDROSTERONE (11/18/2023 3:04 PM EDT) DHEA, SERUM 25(A) 31 - 701 ng/dL [facility] Comment: This test was developed and its performance characteristics determined by [facility]. It has not been cleared or approved by the Food and Drug Administration. Performed at: [address] [id number] Ocean Freight Forwarder: Senait Hardin MD, Phone: [phone] 11/18/2023 3:04 PM EDT 11/18/2023 3:14 PM EDT Narrative [facility] - 11/23/2023 12:10 PM EDT Katy Skip DO [facility] Final Result [facility] * (ABNORMAL) [facility] PROLACTIN (11/18/2023 3:04 PM EDT) PROLACTIN 4.7(A) 4.8 - 33.4 ng/mL [facility] Comment: Performed at: [address] [id number] Ocean Freight Forwarder: Doyle Mendenhall PhD, Phone: [phone] 11/18/2023 3:04 PM EDT 11/18/2023 3:14 PM EDT Narrative [facility] - 11/19/2023 4:07 AM EDT Katy Skip DO [facility] Final Result Performing Organization Address City/[facility] Co de Phone Number [facility] * ALL FOLLICLE STIMULATING HORMONE (11/18/2023 3:04 PM EDT) FSH 13.0 . mIU/mL [facility] Comment: Adult Female Range Follicular phase 3.5 - 12.5 Ovulation phase 4.7 - 21.5 Luteal phase 1.7 - 7.7 Postmenopausal 25.8 - 134.8 11/18/2023 3:04 PM EDT 11/18/2023 3:14 PM EDT Narrative [facility] - 11/19/2023 4:07 AM EDT Katy Skip DO [facility] Final Result [facility] TB * ALL LUTEINIZING HORMONE (11/18/2023 3:04 PM EDT) LUTEINIZING HORMONE(LH) 24.9 . mIU/mL [facility] Comment: Adult Female Range Follicular phase 2.4 - 12.6 Ovulation phase 14.0 - 95.6 Luteal phase 1.0 - 11.4 Postmenopausal 7.7 - 58.5 11/18/2023 3:04 PM EDT 11/18/2023 3:14 PM EDT Narrative [facility] - 11/19/2023 4:07 AM EDT Katy Skip DO [facility] Final Result Performing Organization Address [facility] Co de Phone Number [facility] TB * (ABNORMAL) ALL DHEA SULFATE (11/18/2023 3:04 PM EDT) DHEA-SULFATE 15.4(A) 57.3 - 279.2 ug/dL [facility] 11/18/2023 3:04 PM EDT 11/18/2023 3:14 PM EDT Narrative [facility] - 11/19/2023 4:07 AM EDT Katy Skip DO [facility] Final Result Performing Organization Address [facility] Co de Phone Number [facility] documented in this encounter Visit Diagnoses Not on filedocumented in this encounter Care Teams Gas Engine Performance Engineer Relationship Specialty Start Date End Date Charles Nicole MD PCP - General Family Medicine 02/09/24 07/17/24 Gay De La Torre MD [address] [place] [address] Referring Physician Family Medicine 07/18/24 documented as of this encounter
--- OUTSIDE RECORDS SUMMARY | 2025-02-24 11:48 | XMS_ITS | Encounter Summary ---
Author Organization [facility] Address [address] [place] [address] Care Team Providers Care Head Silverman Name Role Phone House, Charles Culver MD Primary Care Provider [phone] Gay De La Torre MD Unavailable [phone] Encounter Details Date Type Department Care Team (Late Contact Info) Description 09/29/2023 Clinisync Result Encounter [facility] External Department Unsolicited Zita Rogers, ATHLETIC EVENTS SCORER [address] [facility] [address] [address] Social History Tobacco Use Types Packs/Day Years [...] [facility] Associates 703 [facility] 150 [place] [phone] Terence Blum MD 703 [facility] 150 [place] [address] 03/19/2025 10:20 AM EDT Office Visit [facility] [address] [facility] 900 [place] [address] Mary Grace Mejias MD 112 [facility] 130 [place] [address] 07/25/2025 11:00 AM EST Office Visit [facility] [address] [place] [address] Cynthia English MD [address] [place] [address] documented as of this encounter Procedures Procedure Name Priority Date/Time Associated Diagnosis Comments XR THORACIC SPINE 3V 09/29/2023 7:22 AM EDT documented in this encounter Results * XR THORACIC SPINE 3V (09/29/2023 7:22 AM EDT) Anatomical Region Laterality Modality Other 09/29/2023 7:22 AM EDT Narrative 09/29/2023 7:25 AM EDT [address] [address] XRay Report Signed Patient: JNOES PANIAGUA MR#: [id number] : 1980 Acct:[id number] Age/Sex: 42 / F ADM Date: 09/28/23 Loc: RAD Attending Dr: ZITA ROGERS Ordering Physician: ZITA ROGERS Date of Service: 09/28/23 Procedure(s): XR thoracic spine 3V Accession Number(s): [id number] cc: GAY DE LA TORRE ; ZITA ROGERS The [address] [address] Patient Name: JONES PANIAGUA MRN: [id number] date: 1980 Sex: F Assigned Patient Location: RAD Current Patient Location: Accession/Order Number: [id number] Exam Date: 09/28/2023 14:43 Report Date: 09/29/2023 07:22 At the request of: ZITA ROGERS Procedure: XR thoracic spine 3V EXAMINATION: [...] M.D. Signed By: 09/29/2325 DD/ 1 TD/TT: Roofer Vinyl Coating: Procedure Note Radiology, Radiologist, MD - 09/29/2023 [place] [address] XRay Report Signed Patient: JONES PANIAGUA BMR#: [id number] : 1980Acct:[id number] Age/Sex: 42 / FADM Date: 09/28/23 Loc: [facility] Attending Dr: ZITA ROGERS Ordering Physician: ZITA ROGERS Date of Service: 09/28/23 Procedure(s): XR thoracic spine 3V Accession Number(s): [id number] cc: GAY DE LA TORRE ; ZITA ROGERS The [place] [address] Patient Name: JONES PANIAGUA MRN: [id number] date: 1980 Sex: F Assigned Patient Location: [facility] Current Patient Location: Accession/Order Number: [id number] Exam Date: 09/28/2023 14:43 Report Date: 09/29/2023 07:22 At the request of: ZITA ROGERS Procedure: XR thoracic spine 3V EXAMINATION: [...] Shaikh M.D. Signed By:09/29/23724 DD/ 1 TD/TT: Roofer Vinyl Coating: us Zita Rogers ATHLETIC EVENTS SCORER [facility] Final Result documented in this encounter Visit Diagnoses Not on filedocumented in this encounter Care Teams Head Silverman Relationship Specialty Start Date End Date Charles Nicole MD PCP - General Family Medicine 02/09/24 07/17/24 Gay De La Torre MD [address] [place], [place] [phone] Referring Physician Family Medicine 07/18/24 documented as of this encounter
--- OUTSIDE RECORDS SUMMARY | 2025-02-24 11:48 | XMS_ITS | Encounter Summary ---
Author Organization [facility] Address [address] [facility] [place] [address] Care Team Providers Care Physics Teacher Name Role Phone Gay De La Torre MD Unavailable [phone] Encounter Details Date Type Department Care Team (Latest Contact Info) Description 02/14/2025 Travel Social History Tobacco Use Types Packs/Day [...] AM EDT Consult [facility] [address] [address] Terence Blum MD 703 [facility] 150 [place] [address] 03/19/2025 10:20 AM EDT Office Visit [facility] [address] [facility] 900 [place] [address] Mary Grace Mejias MD 112 [facility] 130 [place] [address] 07/25/2025 11:00 AM EST Office Visit [facility] [address] [place] [address] Cynthia English MD [address] [place] [address] documented as of this encounter Visit Diagnoses Not on filedocumented in this encounter Care Teams Physics Teacher Relationship Specialty Start Date End Date Gay De La Torre MD [address] [place] [address] Referring Physician Family Medicine 07/18/24 documented as of this encounter
--- OUTSIDE RECORDS SUMMARY | 2025-02-24 11:48 | XMS_ITS | Encounter Summary ---
Author Organization [facility] Address [address] [facility] [place] [address] Care Team Providers Care Gravedigger Name Role Phone Gay De La Torre MD Unavailable [phone] Encounter Details Date Type Department Care Team (Late st Contact Info) Description 01/30/2025 Results Follow-Up [facility] [address] [place] [address] Sabi Barker LPN [address] [employer] [place] [phone] Left breast US limited Social History Tobacco Use Types Packs/Day Years [...] on file documented as of this encounter Miscellaneous Notes * Result Encounter Note - Sabi Barker LPN - 01/30/2025 2:57 PM EDT Pt notified and verbalizes understanding. documented in this encounter Plan of Treatment Upcoming Encounters Date Type Department Care Team (Late st Contact Info) Description 02/28/2025 9:30 AM EDT Consult [facility] [address] [facility] 150 [place] [address] Terence Blum MD 703 [facility] [address] [place] [address] 03/19/2025 10:20 AM EDT Office Visit [facility] [address] [place] [address] Mary Grace Mejias MD 112 [facility] 130 [place] [address] 07/25/2025 11:00 AM EST Office Visit [facility] [address] [place] [address] Cynthia English MD [address] [place] [address] documented as of this encounter Visit Diagnoses Not on filedocumented in this encounter Care Teams Gravedigger Relationship Specialty Start Date End Date Gay De La Torre MD [address] [place] [address] Referring Physician Family Medicine 07/18/24 documented as of this encounter
--- OUTSIDE RECORDS SUMMARY | 2025-02-24 11:48 | XMS_ITS | Clinical Summary ---
Author Organization [facility] Address [address] [place] [address] Care Team Providers Care Sales Representative Door To Door Name Role Phone Gay De La Torre CNP Primary Care Provider [phone] Allergies Active Allergy Reactions Criticality Noted Date Comments Omeprazole Other 03/08/2024 Pantoprazole Other 03/08/2024 Sulfamethoxazole Other 05/31/2014 Other Reaction(s): gi Other Reaction(s): lymph swelling CAUSED ENLARGED LYMPH NODES Sulfamethoxazole-Trimetho prim Other,GI intolerance,Swelli ng Low 02/24/2016 Patient states it was [...] thinks she just experienced side effects. Medications metoprolol tartrate (Lopressor) 50 mg tablet Take 100 mg by mouth two times daily. 3 Active predniSONE (Deltasone) 10 mg tablet Take 10 mg by mouth in the morning. Active hydroxychloroq uine 400 mg tablet 1 (one) time each day at the same time. 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 GERD (gastroesophageal reflux disease) 4 Insulin resistance 03/07/2024 Lumbosacral spondylosis 03/07/2024 Abdominal [...] 06/01/2023 Tachycardia 06/01/2023 Bilateral wrist pain 02/04/2023 intermission coordinator 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 02/04 Raynaud's [...] Physically or Sexually Abused Not on file Comments Unknown Sex and Gender Information Value Date Recorded Sex Assigned at Not on file Legal Sex Female 8:07 PM EST Gender Identity Not on file [...] Health Maintenance Due Date Last Done Comments Depression Screening 1992 Varicella Vaccines (1 of 2 - 13+ 2-dose series) 1993 Hepatitis B Vaccines (1 of 3 - 19+ 3-dose series) 10/05/1999 Pneumococcal Vaccine: Pediatrics (0 to 5 Years) and At-Risk Patients (6 to 64 Years) (1 of 2 - PCV) 10/05/1999 Adult Tetanus 2002 HPV/Cotest 2010 Cervical Cancer Screening 05/04/2011 Pap Smear 05/04/2011 05/04/2008 Mammogram 2020 COVID-19 Vaccine ( season) 2025 02/23/2023, 02/08/2022, 05/26/2021, Additional history exists Influenza Vaccine (#1) 2025 Zoster Vaccines (1 of 2) 2030 [...] on patient's age to complete this topic Insurance [employer] [place] Care Teams Sales Representative Door To Door Relationship Specialty Start Date End Date Gay De La Torre CNP [facility], [facility] [address] [place] [phone] PCP - General Family Medicine 03/01/24
--- OUTSIDE RECORDS SUMMARY | 2025-02-24 11:48 | XMS_ITS | Encounter Summary ---
Author Organization [facility] Address [address] [place] [address] Care Team Providers Care Insolvency Consultant Name Role Phone Gay De La Torre MD Unavailable [phone] Reason for Visit * Reason Comments Med Refill Encounter Details Date Type Department Care Team (Late Contact Info) Description 12/07/2024 Refill [facility] [address] [facility] [address] [place] [phone] Андрей Hearn DO [address] [facility] [address] [place] [address] Eustachian tube dysfunction, bilateral; Non-recurrent acute serous otitis media of both ears Social History Tobacco Use Types Packs/Day Years Used Date Smoking Tobacco: Every Day Cigarettes 1 29.8 Started: 05/24/1995 Smokeless Tobacco: Never Comments:Current smoker, carlos ry, 11-20 cigarettes/day Alcohol Use Standard Drinks/Week Comments [...] AM EDT Consult [facility] [address] [facility] [address] [place] [phone] Terence Blum MD 703 [facility] 150 [place] [address] 03/19/2025 10:20 AM EDT Office Visit [facility] [address] [place] [address] Mary Grace Mejias MD 112 [facility] [address] [place] [address] 07/25/2025 11:00 AM EST Office Visit [facility] [address] [place] [address] Cynthia English MD [address] [place] [address] documented as of this encounter Visit Diagnoses Diagnosis Eustachian tube dysfunction, bilateral Non-recurrent acute serous otitis media of both ears documented in this encounter Care Teams Insolvency Consultant Relationship Specialty Start Date End Date Gay De La Torre MD [address] [place] [address] Referring Physician Family Medicine 07/18/24 documented as of this encounter"
--- OUTSIDE RECORDS SUMMARY | 2025-02-24 11:48 | XMS_ITS | Encounter Summary ---
Author Organization [facility] Address [address] [place] [address] Care Team Providers Care Weaving Loom Operator Name Role Phone Manuel Klein MD Unavailable [phone] Manuel Klein MD Primary Care Provider +-4 Manuel Klein MD Unavailable [phone] Source Comments In the event this information is protected by the Federal Confidentiality of Alcohol and Drug AbusePatient Records regulations: The Federal rules restrict any use of the information to criminally investigate or prosecute any alcohol or drug abuse patient.[facility] Encounter Details Date Type Department Care Team (Late st Contact Info) Description 12/09/2023 Get Medical Advice Infectious Disease [address] [place] [address] Tiffany Head DO [address] [place] [address] Infection Social History Tobacco Use [...] is lower risk 4 09/24/2022 Data from: https://www.neighborhoodatlas.medicine.[facility]/. Last address used for calculation [address] 09/24/2022 Comments No Sex and Gender [...] Contact Info) Description 03/08/2025 2:00 PM EDT [facility] Hematology/Oncology [facility] [place] [address] BENLYSTA - 03/21/2025 9:00 AM EDT Office Visit [facility] Laboratory [facility] [place] [address] 4 week follow up IVIG - pt to see MASON for this appt per [facility] 03/21/2025 9:20 AM EDT Visit (SP) Office Hematology/Oncology [address] [facility] [place] [address] Jose Cho MD [address] [facility] [place] [address] 4 week follow up IVIG - pt to see MASON for this appt per [facility] 03/21/2025 9:40 AM EDT Infusion Center Hematology/Oncology [address] [facility] [place] [address] Gabbi, Chair 4 [address] [facility] [place] [address] 4 week follow up IVIG - pt to see MASON for this appt per [facility] 04/05/2025 2:00 PM EST Infusion Center Hematology/Oncology [address] [facility] [place] [address] BENLYSTA - 05/03/2025 2:00 PM EST Infusion Center Hematology/Oncology [address] [facility] [place] [address] BENLYSTA - documented as of this encounter Visit Diagnoses Not on filedocumented in this encounter Care Teams Weaving Loom Operator Relationship Specialty Start Date End Date Manuel Klein MD PCP - General Family Medicine 02/27/22 Manuel Klein MD Referring Family Medicine 02/12/22 Manuel Klein MD [address] [place] [address] Referring Family Medicine 07/06/24 documented as of this encounter
--- OUTSIDE RECORDS SUMMARY | 2025-02-24 11:48 | XMS_ITS | Encounter Summary ---
Author Organization [facility] Address [address] [facility] [place] [address] Care Team Providers Care Formula Mixer Name Role Phone Gay De La Torre MD Unavailable [phone] Encounter Details Date Type Department Care Team (Latest Contact Info) Description 02/19/2025 Travel Social History Tobacco Use Types Packs/Day [...] AM EDT Consult [facility] [address] [address] Terence Blum MD 703 [facility] [address] [place] [address] 03/19/2025 10:20 AM EDT Office Visit [facility] [address] [facility] [address] [place] [address] Mary Grace Mejias MD 112 [facility] 130 [place] [address] 07/25/2025 11:00 AM EST Office Visit [facility] [address] [place] [address] Cynthia English MD [address] [place] [address] documented as of this encounter Visit Diagnoses Not on filedocumented in this encounter Care Teams Formula Mixer Relationship Specialty Start Date End Date Gay De La Torre MD [address] [place] [address] Referring Physician Family Medicine 07/18/24 documented as of this encounter
--- OUTSIDE RECORDS SUMMARY | 2025-02-24 11:48 | XMS_ITS | Encounter Summary ---
Author Organization [facility] Address [id number] [address] [place] [address] Care Team Providers Care Group Worker Name Role Phone Unavailable Primary Care Provider Unavailabl e Encounter Details Date Type Department Care Team (Late st Contact Info) Description 05/05/2024 Orders Only [facility] [address] [place] [address] Felicia Payne CMA Cold extremities; Pain of lower extremity, unspecified laterality; Systemic lupus erythematosus ([facility]) Social History Tobacco Use Types Packs/Day Years [...]
--- OUTSIDE RECORDS SUMMARY | 2025-02-24 11:48 | XMS_ITS | Encounter Summary ---
Author Organization [facility] Address [address] [place] [address] Care Team Providers Care E Learning Manager Name Role Phone Manuel Klein MD Unavailable [phone] Manuel Klein MD Primary Care Provider +-4 Manuel Klein MD Unavailable [phone] Source Comments In the event this information is protected by the Federal Confidentiality of Alcohol and Drug AbusePatient Records regulations: The Federal rules restrict any use of the information to criminally investigate or prosecute any alcohol or drug abuse patient.[facility] Encounter Details Date Type Department Care Team (Late st Contact Info) Description 06/10/2022 Patient Msg Hematology/Oncology [address] [place] [address] Cele Marshall Nurse Dre [address] [facility] [place] [address] Appointment Cancellation Request Social History Tobacco [...] N ot on file 08/09/2020 Data from: https://www.neighborhoodatlas.medicine.[facility]/. Last address used for calculation [...] EDT [facility] Hematology/Oncology [address] [place] [address] BENLYSTA - 03/21/2025 9:00 AM EDT Office Visit [facility] Laboratory [facility] [place] [address] 4 week follow up IVIG - pt to see MASON for this appt per [facility] 03/21/2025 9:20 AM EDT Visit (SP) Office Hematology/Oncology [address] [facility] [facility] [address] Jose Cho MD [address] [facility] [facility] [address] 4 week follow up IVIG - pt to see MASNO for this appt per [facility] 03/21/2025 9:40 AM EDT Infusion Center Hematology/Oncology [address] [facility] [place] [address] Gabbi, Chair [address] [facility] [facility] [address] 4 week follow up IVIG - pt to see MASON for this appt per [facility] 04/05/2025 2:00 PM EST Infusion Center Hematology/Oncology [address] [facility] [place] [address] BENLYSTA - 05/03/2025 2:00 PM [email or web address] Infusion Center Hematology/Oncology [address] [facility] [place] [address] BENLYSTA - documented as of this encounter Visit Diagnoses Not on filedocumented in this encounter Care Teams E Learning Manager Relationship Specialty Start Date End Date Manuel Klein MD PCP - General Family Medicine 02/27/22 Manuel Klein MD Referring Family Medicine 02/12/22 Manuel Klein MD [address] [place] [address] Referring Family Medicine 07/06/24 documented as of this encounter
--- OUTSIDE RECORDS SUMMARY | 2025-02-24 11:48 | XMS_ITS | Encounter Summary ---
Author Organization [facility] Address [address] [place] [address] Care Team Providers Care Spool Cleaner Hand Name Role Phone Manuel Klein MD Unavailable [phone] Manuel Klein MD Primary Care Provider +-4 Manuel Klein MD Unavailable [phone] Source Comments In the event this information is protected by the Federal Confidentiality of Alcohol and Drug AbusePatient Records regulations: The Federal rules restrict any use of the information to criminally investigate or prosecute any alcohol or drug abuse patient.[facility] Encounter Details Date Type Department Care Team (Late st Contact Info) Description 02/23/2024 Patient Msg Rheumatology [address] [place], [place] [id number] Sandra Park MD [address] [place] [address] Appointment Request Social History Tobacco [...] is lower risk 4 09/24/2022 Data from: https://www.neighborhoodatlas.medicine.[facility]/. Last address used for calculation [address] 09/24/2022 Comments No Sex and Gender [...] Contact Info) Description 03/08/2025 2:00 PM EDT [facility] Hematology/Oncology [address] [place] [address] BENLYSTA - 03/21/2025 9:00 AM EDT Office Visit [facility] [address] [place] [address] [place] [address] 4 week follow up IVIG - pt to see MASON for this appt per [facility] 03/21/2025 9:20 AM EDT Visit (SP) Office Hematology/Oncology [address] [place] [address] Jose Cho MD [address] [place] [address] 4 week follow up IVIG - pt to see MASON for this appt per [facility] 03/21/2025 9:40 AM EDT Infusion Center Hematology/Oncology [address] [place] [address] Gabbi, Chair 4 [address] [place] [address] 4 week follow up IVIG - pt to see MASON for this appt per [facility] 04/05/2025 2:00 PM EST Infusion Center Hematology/Oncology [address] [facility] [place] [address] BENLYSTA - 05/03/2025 2:00 PM [facility] Infusion Center Hematology/Oncology [address] [place] [address] BENLYSTA - documented as of this encounter Visit Diagnoses Not on filedocumented in this encounter Care Teams Spool Cleaner Hand Relationship Specialty Start Date End Date Manuel Klein MD PCP - General Family Medicine 02/27/22 Manuel Klein MD Referring Family Medicine 02/12/22 Manuel Klein MD [address] [place] [place] [place] [address] Referring Family Medicine 07/06/24 documented as of this encounter
--- OUTSIDE RECORDS SUMMARY | 2025-02-24 11:48 | XMS_ITS | Clinical Summary ---
Author Organization [facility] Address [address] [facility], [address] [place] [address] Care Team Providers Care Facility Sales And Admin Name Role Phone Gay De La Torre APRN - WIRE TESTER Primary Care Provide r Allergies Active Allergy Reactions Criticality Noted Date Comments Sulfamethoxazole-Trimethoprim 2020 Medications famotidine (PEPCID) 20 MG tablet Take 20 mg by mouth 2 times daily Active omeprazole (PRILOSEC) 20 MG delayed release capsule Take 40 mg by mouth daily Active cetirizine (ZYRTEC ALLERGY) 10 MG tablet Take 10 mg by mouth daily Active acetaminophen (TYLENOL) 500 MG tablet Take 1,000 mg by mouth every 4 hours as needed for Pain Active ibuprofen (ADVIL;MOTRIN) 200 MG tablet Take 200 mg by mouth every 6 hours as needed for Pain Active aspirin 81 MG chewable tablet Take 81 mg by mouth daily Active nitroGLYCERIN (NITROSTAT) 0.[address] 1 tablet under the tongue every 5 minutes as needed for Chest pain up to max of 3 total doses. If no relief after 1 dose, call 911. 25 tablet 3 10/07/2020 Active hydroxychloroqu ine (PLAQUENIL) 200 MG tablet Take 1 tablet by mouth daily 04/02/2021 Active metoprolol tartrate (LOPRESSOR) 25 MG tablet Take 25 mg by mouth 2 times daily 07/29/2020 Active Active Problems Problem Noted Date Diagnosed Date Rheumatoid arthritis 06/28/2021 Social History Tobacco Use Types Packs/Day Years Used Date Smoking Tobacco: Every Day Smokeless Tobacco: Never Alcohol Use Standard Drinks/Week Comments Never 0 (1 standard drink = 0.6 oz pur e alcohol) Comments Unknown Sex and Gender Information Value Date Recorded Sex Assigned at Not on file Legal Sex Female 11:20 PM EST Gender Identity Not on file Sexual Orientation Not on file Last Filed Vital Signs Vital Sign Reading Time Taken Comments Blood Pressure 102/65 06/03/2021 2:38 PM EST Pulse 86 06/03/2021 2:38 PM EST Temperature 37 C (98.6 F) 06/03/2021 2:38 PM EST Respiratory Rate 22 10/07/2020 10:45 AM EDT Oxygen Saturation 99% 10/07/2020 12:45 PM EDT Inhaled Oxygen Concentration - - Weight 105 kg (231 lb 7.2 oz) 06/03/2021 2:38 PM EST Height 170.2 cm (5' 7 ) 10/07/2020 9:01 AM EDT Body Mass Index 36.25 10/07/2020 9:01 AM EDT Plan of Treatment Not on file Insurance [employer] Advance Directives * Full Code (Latest Code Status on File) Date Activated Date Inactivated Comments 10/07/2020 8:32 AM 10/08/2020 2:43 AM Care Teams Facility Sales And Admin Relationship Specialty Start Date End Date Gya De La Torre, MAURILIO - WIRE TESTER [address] [place] [address] PCP - General 06/03/21
--- OUTSIDE RECORDS SUMMARY | 2025-02-24 11:48 | XMS_ITS | Encounter Summary ---
Author Organization [facility] Address [address] [place] [address] Care Team Providers Care Elevator Adjuster Name Role Phone House, Charles Culver MD Primary Care Provider Gay De La Torre MD Unavailable [phone] Encounter Details Date Type Department Care Team (Late Contact Info) Description 10/19/2022 Abstract [facility] [address] [facility] [address] [place] [phone] Cynthia English MD [address] [facility] [address] [place] [address] Social History Tobacco Use Types Packs/Day Years [...] AM EDT Consult [facility] [address] [facility] 150 [place] [address] Terence Blum MD 703 [facility] [address] [place] [address] 03/19/2025 10:20 AM EDT Office Visit [facility] [address] [place] [address] Mary Grace Mejias MD [address] [facility] [address] [place] [address] 07/25/2025 11:00 AM EST Office Visit [facility] [address] [place] [address] Cynthia English MD [address] [place] [address] documented as of this encounter Visit Diagnoses Not on filedocumented in this encounter Care Teams Elevator Adjuster Relationship Specialty Start Date End Date Charles Nicole MD PCP - General Family Medicine 02/09/24 07/17/24 Gay De La Torre MD [address] [place] [address] Referring Physician Family Medicine 07/18/24 documented as of this encounter
--- OUTSIDE RECORDS SUMMARY | 2025-02-24 11:48 | XMS_ITS | Encounter Summary ---
Author Organization [facility] Address [address] [place] [address] Care Team Providers Care Commission Sales Associate Name Role Phone Mnauel Klein MD Unavailable [phone] Manuel Klein MD Primary Care Provider +-4 Manuel Klein MD Unavailable [phone] Source Comments In the event this information is protected by the Federal Confidentiality of Alcohol and Drug AbusePatient Records regulations: The Federal rules restrict any use of the information to criminally investigate or prosecute any alcohol or drug abuse patient.[facility] Encounter Details Date Type Department Care Team (Late st Contact Info) Description 02/23/2024 Patient Msg Rheumatology [address] [place], [place] [phone] Sandra Park MD [address] [place] [address] Appointment Request Social History Tobacco [...] is lower risk 4 09/24/2022 Data from: https://www.neighborhoodatlas.medicine.[facility]/. Last address used for calculation [address] 09/24/2022 Comments No Sex and Gender [...] Contact Info) Description 03/08/2025 2:00 PM EDT [facility] Hematology/Oncology [address] [facility] [place] [address] BENLYSTA - 03/21/2025 9:00 AM EDT Office Visit [facility] Laboratory [address] [place] [address] [place] [address] 4 week follow up IVIG - pt to see MASON for this appt per [facility] 03/21/2025 9:20 AM EDT Visit (SP) Office Hematology/Oncology [address] [facility] [place] [address] Jose Cho MD [address] [facility] [place] [address] 4 week follow up IVIG - pt to see MASON for this appt per [facility] 03/21/2025 9:40 AM EDT Infusion Center Hematology/Oncology [address] [facility] [place] [address] Gabbi, Chair 4 [address] [facility] [place] [address] 4 week follow up IVIG - pt to see MASON for this appt per [facility] 04/05/2025 2:00 PM EST Infusion Center Hematology/Oncology [address] [facility] [place] [address] BENLYSTA - 05/03/2025 2:00 PM [facility] Infusion Center Hematology/Oncology [address] [facility] [place] [address] BENLYSTA - documented as of this encounter Visit Diagnoses Not on filedocumented in this encounter Care Teams Commission Sales Associate Relationship Specialty Start Date End Date Manuel Klein MD PCP - General Family Medicine 02/27/22 Manuel Klein MD Referring Family Medicine 02/12/22 Manuel Klein MD [address] [place] [address] Referring Family Medicine 07/06/24 documented as of this encounter
--- OUTSIDE RECORDS SUMMARY | 2025-02-24 11:48 | XMS_ITS | Encounter Summary ---
Author Organization [facility] Address [address] [place] [address] Care Team Providers Care Line Up Examiner Name Role Phone Manuel Klein MD Unavailable [phone] Manuel Klein MD Primary Care Provider +-4 Manuel Klein MD Unavailable [phone] Source Comments In the event this information is protected by the Federal Confidentiality of Alcohol and Drug AbusePatient Records regulations: The Federal rules restrict any use of the information to criminally investigate or prosecute any alcohol or drug abuse patient.[facility] Encounter Details Date Type Department Care Team (Late st Contact Info) Description 01/26/2024 [place] [address] Provider, [facility] Important changes to Wellness RX [...] is lower risk 4 09/24/2022 Data from: https://www.neighborhoodatlas.[facility]/. Last address used for calculation [address] [facility] 09/24/2022 Comments No Sex and Gender Information [...] Contact Info) Description 03/08/2025 2:00 PM EDT [facility] Hematology/Oncology [address] [place] [address] BENLYSTA - 03/21/2025 9:00 AM EDT Office Visit [facility] Laboratory [facility] [place] [address] 4 week follow up IVIG - pt to see MASON for this appt per [facility] 03/21/2025 9:20 AM EDT Visit (SP) Office Hematology/Oncology [facility] [address] Jose Cho MD [address] [place] [address] 4 week follow up IVIG - pt to see MASON for this appt per [facility] 03/21/2025 9:40 AM EDT Infusion Center Hematology/Oncology [address] [facility] [place] [address] Gabbi, Chair 4 [address] [facility] [place] [address] 4 week follow up IVIG - pt to see MASON for this appt per [facility] 04/05/2025 2:00 PM EST Infusion Center Hematology/Oncology [address] [facility] [place] [address] BENLYSTA - 05/03/2025 2:00 PM [facility] Infusion Center Hematology/Oncology [address] [place] [address] BENLYSTA - documented as of this encounter Visit Diagnoses Not on filedocumented in this encounter Care Teams Line Up Examiner Relationship Specialty Start Date End Date Manuel Klein MD PCP - General Family Medicine 02/27/22 Manuel Klein MD Referring Family Medicine 02/12/22 Manuel Klein MD [address] [facility] [address] Referring Family Medicine 07/06/24 documented as of this encounter
--- OUTSIDE RECORDS SUMMARY | 2025-02-24 11:48 | XMS_ITS | Encounter Summary ---
Author Organization [facility] Address [address] [place] [address] Care Team Providers Care Forming Roll Operator Heavy Duty Name Role Phone Manuel Klein MD Unavailable [phone] Manuel Klein MD Primary Care Provider [phone]-4 Manuel Klein MD Unavailable [phone] Source Comments In the event this information is protected by the Federal Confidentiality of Alcohol and Drug AbusePatient Records regulations: The Federal rules restrict any use of the information to criminally investigate or prosecute any alcohol or drug abuse patient.[facility] Encounter Details Date Type Department Care Team (Late st Contact Info) Description 07/09/2022 Get Medical Advice [facility] [address] [place] [address] Christie Phan MD [address] [place] [address] Cymbalta Social History Tobacco Use [...] N ot on file 08/09/2020 Data from: https://www.neighborhoodatlas.medicine.[facility]/. Last address used for calculation Not [...] Contact Info) Description 03/08/2025 2:00 PM EDT [facility] Center Hematology/Oncology [address] [place] [address] BENLYSTA - 03/21/2025 9:00 AM EDT Office Visit [facility] Laboratory [address] [place] [address] [place] [address] 4 week follow up IVIG - pt to see MASON for this appt per [facility] 03/21/2025 9:20 AM EDT Visit (SP) Office Hematology/Oncology [address] [place] [address] Jose Cho MD [address] [place] [address] 4 week follow up IVIG - pt to see MASON for this appt per [facility] 03/21/2025 9:40 AM EDT Infusion Center Hematology/Oncology [address] [place] [address] Gabbi, Chair [address] [place] [place] [address] 4 week follow up IVIG - pt to see MASON for this appt per [facility] 04/05/2025 2:00 PM EST Infusion Center Hematology/Oncology [address] [place] [place] [address] BENLYSTA - 05/03/2025 2:00 PM EST Infusion Center Hematology/Oncology [address] [place] [address] BENLYSTA - documented as of this encounter Visit Diagnoses Not on filedocumented in this encounter Care Teams Forming Roll Operator Heavy Duty Relationship Specialty Start Date End Date Manuel Klein MD PCP - General Family Medicine 02/27/22 Manuel Klein MD Referring Family Medicine 02/12/22 Manuel Klein MD [address] [place] [address] Referring Family Medicine 07/06/24 documented as of this encounter
--- OUTSIDE RECORDS SUMMARY | 2025-02-24 11:48 | XMS_ITS | Encounter Summary ---
Author Organization [facility] Address [address] [place] [address] Phone Care Team Providers Care Steam And Power Superintendent Name Role Phone MitaliMichelle COMMERCIAL CREDIT HEAD-DRILL PRESSER Unavailable [phone] Kenneth Patel MD Unavailable [phone] Gay De La Torre COMMERCIAL CREDIT HEAD-DRILL PRESSER Primary Care Provider Encounter Details Date Type Department Care Team (Late st Contact Info) Description 12/11/2023 Scanned Document [facility] [address] [place] [place] [id number] Scanning, Generic Provider Social History Tobacco Use [...] Description 07/26/2025 11:00 AM EST Office Visit [facility] [address] [facility] [address] [place] [address] Lois Arguelles MD [address] [place] [address] documented as of this encounter [...] documented as of this encounter Care Teams Steam And Power Superintendent Relationship Specialty Start Date End Date Gay De La Torre, COMMERCIAL CREDIT HEAD-DRILL PRESSER [address] [place] [address] PCP - General 07/13/23 Michelle Jasmine APRN-DRILL PRESSER Nurse Practitioner Cardiology 06/08/23 Kenneth Patel MD Consulting Physician Cardiology 06/23/23 documented as of this encounter
--- OUTSIDE RECORDS SUMMARY | 2025-02-24 11:48 | XMS_ITS | Encounter Summary ---
Author Organization [facility] Address [id number] [address] [place] [address] Care Team Providers Care Macaroni Press Operator Name Role Phone Unavailable Primary Care Provider Unavailabl e Encounter Details Date Type Department Care Team (Late st Contact Info) Description 04/05/2024 Orders Only [facility] [address] [place] [address] Ref Prov, [place] [address] Social History Tobacco Use Types Packs/Day Years [...]
--- OUTSIDE RECORDS SUMMARY | 2025-02-24 11:49 | XMS_ITS | Encounter Summary ---
Author Organization [facility] Address [address] [place] [address] Care Team Providers Care White Kid Buffer Name Role Phone Aime Davidson MD, Lui Nunez Primary Care Provid er Gay De La Torre(Historical) HANDBAG DESIGNER.JUVENILE COURT JUDGE Primary Care Provider Unavailable Manuel Klein MD Unavailable [phone] Manuel Klein MD Primary Care Provider [phone] Manuel Klein MD Unavailable [phone] Source Comments In the event this information is protected by the Federal Confidentiality of Alcohol and Drug AbusePatient Records regulations: The Federal rules restrict any use of the information to criminally investigate or prosecute any alcohol or drug abuse patient.[facility] Encounter Details Date Type Department Care Team (Late st Contact Info) Description 12/31/2014 Get Medical Advice Internal Medicine [facility] [place] [address] Lui Salomon Jr., MD [address] [place] [address] Medication Question (Not Renewal) Social [...] Contact Info) Description 03/08/2025 2:00 PM EDT [facility] Center Hematology/Oncology [address] [place] [address] [place] [address] BENLYSTA - 03/21/2025 9:00 AM EDT Office Visit [facility] Laboratory [address] [facility] [place] [address] 4 week follow up IVIG - pt to see MASON for this appt per [facility] 03/21/2025 9:20 AM EDT Visit (SP) Office Hematology/Oncology [address] [facility] [place] [address] Jose Cho MD [address] [facility] [place] [address] 4 week follow up IVIG - pt to see MASON for this appt per [facility] 03/21/2025 9:40 AM EDT Infusion Center Hematology/Oncology [address] [facility] [place] [address] Sanford, Chair 4 [address] [facility] [place] [address] 4 week follow up IVIG - pt to see MASON for this appt per [facility] 04/05/2025 2:00 PM EST Infusion Center Hematology/Oncology [address] [facility] [place] [address] BENLYSTA - 05/03/2025 2:00 PM [facility] Infusion Center Hematology/Oncology [address] [place] [address] [place] [address] BENLYSTA - documented as of this encounter Visit Diagnoses Not on filedocumented in this encounter Care Teams White Kid Buffer Relationship Specialty Start Date End Date Lui Salomon Jr., MD PCP - General Internal Medicine 05/31/14 07/08/20 Gay De La Torre(Historical), HANDBAG DESIGNER.JUVENILE COURT JUDGE PCP - General Family Medicine 10/24/21 02/26/22 aMnuel Klein MD PCP - General Family Medicine 02/27/22 Manuel Klein MD Referring Family Medicine 02/12/22 Manuel Klein MD [address] [place] [id number] Referring Family Medicine 07/06/24 documented as of this encounter
--- OUTSIDE RECORDS SUMMARY | 2025-02-24 11:49 | XMS_ITS | Encounter Summary ---
Author Organization [facility] Address [address] [place] [address] Care Team Providers Care Progress Clerk Name Role Phone Manuel Klein MD Unavailable [phone] Manuel Klein MD Primary Care Provider [phone] Manuel Klein MD Unavailable [phone] Source Comments In the event this information is protected by the Federal Confidentiality of Alcohol and Drug AbusePatient Records regulations: The Federal rules restrict any use of the information to criminally investigate or prosecute any alcohol or drug abuse patient.[facility] Encounter Details Date Type Department Care Team (Late st Contact Info) Description 10/02/2022 Get Medical Advice [facility] [address] [place] [address] Christie Phan MD [address] [address] Trulicity Social History Tobacco Use [...] is lower risk 4 09/24/2022 Data from: https://www.neighborhoodatlas.medicine.[facility]/. Last address used for calculation [address] 09/24/2022 Comments No Sex and Gender [...] Info) Description 03/08/2025 2:00 PM EDT [facility] Center Hematology/Oncology [facility] [place] [address] BENLYSTA - 03/21/2025 9:00 AM EDT Office Visit [facility] Laboratory [facility] [place] [address] 4 week follow up IVIG - pt to see MASON for this appt per [facility] 03/21/2025 9:20 AM EDT Visit (SP) Office Hematology/Oncology [address] [place] [address] Jose Cho MD [address] [place] [address] 4 week follow up IVIG - pt to see MASON for this appt per [facility] 03/21/2025 9:40 AM EDT Infusion Center Hematology/Oncology [address] [place] [address] Gabbi, Chair [address] [place] [address] 4 week follow up IVIG - pt to see MASON for this appt per [facility] 04/05/2025 2:00 PM EST Infusion Center Hematology/Oncology [address] [place] [address] BENLYSTA - 05/03/2025 2:00 PM EST Infusion Center Hematology/Oncology [address] [place] [address] BENLYSTA - documented as of this encounter Visit Diagnoses Not on filedocumented in this encounter Care Teams Progress Clerk Relationship Specialty Start Date End Date Manuel Klein MD PCP - General Family Medicine 02/27/22 Manuel Klein MD Referring Family Medicine 02/12/22 Manuel Klein MD [address] [place] [address] Referring Family Medicine 07/06/24 documented as of this encounter
--- OUTSIDE RECORDS SUMMARY | 2025-02-24 11:49 | XMS_ITS | Encounter Summary ---
Author Organization [facility] Address [address] [place] [address] Care Team Providers Care Bmw Service Technician Name Role Phone Manuel Klein MD Unavailable [phone] Manuel Klein MD Primary Care Provider [phone]-4 Manuel Klein MD Unavailable [phone] Source Comments In the event this information is protected by the Federal Confidentiality of Alcohol and Drug AbusePatient Records regulations: The Federal rules restrict any use of the information to criminally investigate or prosecute any alcohol or drug abuse patient.[facility] Encounter Details Date Type Department Care Team (Late st Contact Info) Description 12/24/2022 Patient Msg Allergy [address] [place] [phone] Misty Nelson MD [facility] [place] [address] Request an Appointment Social History [...] is lower risk 4 09/24/2022 Data from: https://www.neighborhoodatlas.medicine.[facility]/. Last address used for calculation [address] 09/24/2022 Comments No Sex and Gender [...] Info) Description 03/08/2025 2:00 PM EDT [facility] Center Hematology/Oncology [address] [place] [address] BENLYSTA - 03/21/2025 9:00 AM EDT Office Visit [facility] Laboratory [facility] [place] [address] 4 week follow up IVIG - pt to see MASON for this appt per [facility] 03/21/2025 9:20 AM EDT Visit (SP) Office Hematology/Oncology [address] [place] [address] Jose Cho MD [address] [place] [address] 4 week follow up IVIG - pt to see MASON for this appt per [facility] 03/21/2025 9:40 AM EDT Infusion Center Hematology/Oncology [address] [place] [address] Gabbi, Chair [address] [place] [address] 4 week follow up IVIG - pt to see MASON for this appt per [facility] 04/05/2025 2:00 PM EST Infusion Center Hematology/Oncology [address] [place] [address] BENLYSTA - 05/03/2025 2:00 PM EST Infusion Center Hematology/Oncology [address] [place] [address] BENLYSTA - documented as of this encounter Visit Diagnoses Not on filedocumented in this encounter Care Teams Bmw Service Technician Relationship Specialty Start Date End Date Manuel Klein MD PCP - General Family Medicine 02/27/22 Manuel Klein MD Referring Family Medicine 02/12/22 Manuel Klein MD [address] [place] [address] Referring Family Medicine 07/06/24 documented as of this encounter
--- OUTSIDE RECORDS SUMMARY | 2025-02-24 11:49 | XMS_ITS | Encounter Summary ---
Author Organization [facility] Address [address] [place] [address] Care Team Providers Care International First Officer Name Role Phone Aime Davidson MD, Lui Nunez Primary Care Provid er Gay De La Torre(Historical) LINE FIXER.SUPERVISOR CAPACITOR PROCESSING Primary Care Provider Unavailable Manuel Klein MD Unavailable [phone] Manuel Klein MD Primary Care Provider [phone] Manuel Klein MD Unavailable [phone] Source Comments In the event this information is protected by the Federal Confidentiality of Alcohol and Drug AbusePatient Records regulations: The Federal rules restrict any use of the information to criminally investigate or prosecute any alcohol or drug abuse patient.[facility] Encounter Details Date Type Department Care Team (Late st Contact Info) Description 05/01/2015 Get Medical Advice Internal Medicine [facility] [place] [address] Lui Salomon Jr., MD [address] [address] RE: Medication Question (Not Renewal) [...] [facility] Center Hematology/Oncology [address] [place] [address] BENLYSTA - 03/21/2025 9:00 AM EDT Office Visit [facility] Laboratory [facility] [place] [address] 4 week follow up IVIG - pt to see MASON for this appt per [facility] 03/21/2025 9:20 AM EDT Visit (SP) Office Hematology/Oncology [facility] [place] [address] Jose Cho MD [address] [facility] [place] [address] 4 week follow up IVIG - pt to see MASON for this appt per [facility] 03/21/2025 9:40 AM EDT Infusion Center Hematology/Oncology [address] [facility] [place] [address] Gabbi, Chair 4 [address] [facility] [place] [address] 4 week follow up IVIG - pt to see MASON for this appt per [facility] 04/05/2025 2:00 PM EST Infusion Center Hematology/Oncology [address] [facility] [place] [place] [address] BENLYSTA - 05/03/2025 2:00 PM EST Infusion Center Hematology/Oncology [address] [place] [address] [place] [address] BENLYSTA - documented as of this encounter Visit Diagnoses Not on filedocumented in this encounter Care Teams International First Officer Relationship Specialty Start Date End Date Lui Salomon Jr., MD PCP - General Internal Medicine 05/31/14 07/08/20 Gay De La Torre(Historical), LINE FIXER.SUPERVISOR CAPACITOR PROCESSING PCP - General Family Medicine 10/24/21 02/26/22 Manuel Klein MD PCP - General Family Medicine 02/27/22 Manuel Klein MD Referring Family Medicine 02/12/22 Manuel Klein MD [address] [facility] [place] [address] Referring Family Medicine 07/06/24 documented as of this encounter
--- OUTSIDE RECORDS SUMMARY | 2025-02-24 11:49 | XMS_ITS | Encounter Summary ---
Author Organization [facility] Address [address] [place] [address] Care Team Providers Care Preparation Plant Repairer Name Role Phone Manuel Klein MD Unavailable [phone] Manuel Klein MD Primary Care Provider [phone] Manuel Klein MD Unavailable [phone] Source Comments In the event this information is protected by the Federal Confidentiality of Alcohol and Drug AbusePatient Records regulations: The Federal rules restrict any use of the information to criminally investigate or prosecute any alcohol or drug abuse patient.[facility] Reason for Visit * Reason Onset Date Comments Refill Request 01/23/2025 Encounter Details Date Type Department Care Team (Late st Contact Info) Description 01/23/2025 Refill Rheumatology [address], [place] [id number] Sandra Park MD [address] [place] [address] Refill Request Social History Tobacco [...] is lower risk 4 09/24/2022 Data from: https://www.neighborhoodatlas.medicine.[facility]/. Last address used for calculation [address] 09/24/2022 Comments No Sex and Gender [...] Contact Info) Description 03/08/2025 2:00 PM EDT [facility] Center Hematology/Oncology [address] [place] [address] BENLYSTA - 03/21/2025 9:00 AM EDT Office Visit [facility] Laboratory [address] [place] [address] 4 week follow up IVIG - pt to see MASON for this appt per [facility] 03/21/2025 9:20 AM EDT Visit (SP) Office Hematology/Oncology [address] [place] [address] Jose Cho MD [address] [place] [address] 4 week follow up IVIG - pt to see MASON for this appt per [facility] 03/21/2025 9:40 AM EDT Infusion Center Hematology/Oncology [address] [facility] [place] [address] Gabbi, Chair [address] [place] [address] 4 week follow up IVIG - pt to see MASON for this appt per [facility] 04/05/2025 2:00 PM EST Infusion Center Hematology/Oncology [address] [place] [address] BENLYSTA - 05/03/2025 2:00 PM [facility] Infusion Center Hematology/Oncology [address] [place] [address] BENLYSTA - documented as of this encounter Visit Diagnoses Diagnosis CHRISTIAN positive Other and unspecified nonspecific immunological findings Other systemic lupus erythematosus with other organ involvement (HCC) documented in this encounter Care Teams Preparation Plant Repairer Relationship Specialty Start Date End Date Manuel Klein MD PCP - General Family Medicine 02/27/22 Manuel Klein MD Referring Family Medicine 02/12/22 Manuel Klein MD [address] [place] [address] Referring Family Medicine 07/06/24 documented as of this encounter
--- OUTSIDE RECORDS SUMMARY | 2025-02-24 11:49 | XMS_ITS | Encounter Summary ---
Author Organization [facility] Address [facility] [place] [address] Care Team Providers Care Salt Miner Name Role Phone Manuel Klein MD Unavailable Manuel Klein MD Primary Care Provider [phone]-4 Manuel Klein MD Unavailable [phone] Source Comments In the event this information is protected by the Federal Confidentiality of Alcohol and Drug AbusePatient Records regulations: The Federal rules restrict any use of the information to criminally investigate or prosecute any alcohol or drug abuse patient.[facility] Encounter Details Date Type Department Care Team (Late st Contact Info) Description 02/11/2023 Patient [facility] HB-3 [address] [place] [address] Provider, [facility] Huseyin Approved - Action Needed! [...] is lower risk 4 09/24/2022 Data from: https://www.neighborhoodatlas.medicine.[facility].edu/. Last address used for calculation [address] 09/24/2022 Comments No Sex and Gender [...] Info) Description 03/08/2025 2:00 PM EDT [facility] Center Hematology/Oncology [address] [place] [address] BENLYSTA - 03/21/2025 9:00 AM EDT Office Visit [facility] Laboratory [address] [place] [address] 4 week follow up IVIG - pt to see MASON for this appt per [facility] 03/21/2025 9:20 AM EDT Visit (SP) Office Hematology/Oncology [address] [place] [address] Jose Cho MD [address] [place] [address] 4 week follow up IVIG - pt to see MASON for this appt per [facility] 03/21/2025 9:40 AM EDT Infusion Center Hematology/Oncology [address] [place] [address] Gabbi, Chair [address] [place] [address] 4 week follow up IVIG - pt to see MASON for this appt per [facility] 04/05/2025 2:00 PM EST Infusion Center Hematology/Oncology [address] [place] [address] [place] [address] BENLYSTA - 05/03/2025 2:00 PM [facility] Infusion Center Hematology/Oncology [address] [place] [address] [place] [address] BENLYSTA - documented as of this encounter Visit Diagnoses Not on filedocumented in this encounter Care Teams Salt Miner Relationship Specialty Start Date End Date Manuel Klein MD PCP - General Family Medicine 02/27/22 Manuel Klein MD Referring Family Medicine 02/12/22 Manuel Klein MD [address] [place] [address] Referring Family Medicine 07/06/24 documented as of this encounter
--- OUTSIDE RECORDS SUMMARY | 2025-02-24 11:49 | XMS_ITS | Clinical Summary ---
Author Organization [facility] Address [address] [place] [address] Care Team Providers Care Scientific Illustrator Name Role Phone Gay De La Torre CNP Primary Care Provider [phone] Social History Tobacco Use Types Packs/Day Years [...] (ADULT) 10/05/1999 CERVICAL CANCER SCREENING DISCUSSION 2001 HPV VACCINE (1 - 3-dose SCDM series) 10/05/2007 LIPID SCREENING 2020 MAMMOGRAM SCREENING DISCUSSION 2020 COVID-19 VACCINE (2 - 2024-2 6 season) 2025 02/23/2023 INFLUENZA VACCINE (#1) 2025 PNEUMOCOCCAL VACCINE SERIES Aged Out No longer eligible based on patient's age to complete this topic Care Teams Scientific Illustrator Relationship Specialty Start Date End Date Gay De La Torre CNP [address] [facility] [place] [address] PCP - General Nurse Practitioner - Family 03/27/24
--- OUTSIDE RECORDS SUMMARY | 2025-02-24 11:49 | XMS_ITS | Encounter Summary ---
Author Organization [facility] Address [address] [place] [id number] Care Team Providers Care Tire Room Supervisor Name Role Phone Manuel Klein MD Unavailable [phone] Mnauel Klein MD Primary Care Provider +-4 Manuel Klein MD Unavailable [phone] Source Comments In the event this [...] Medical Advice [facility] [address] [place] [address] Christie Phan MD [address], [place] [address] Trulicity Social History Tobacco Use [...] is lower risk 4 09/24/2022 Data from: https://www.neighborhoodatlas.medicine.[facility]/. Last address used for calculation [address] 09/24/2022 Comments No Sex and Gender [...] Contact Info) Description 03/08/2025 2:00 PM EDT [facility] Hematology/Oncology [facility] [place] [address] BENLYSTA - 03/21/2025 9:00 AM EDT Office Visit [facility] Laboratory [facility] [place] [address] 4 week follow up IVIG - pt to see MASON for this appt per [facility] 03/21/2025 9:20 AM EDT Visit (SP) Office Hematology/Oncology [address] [place] [address] Jose Cho MD [address] [place] [address] 4 week follow up IVIG - pt to see MASON for this appt per [facility] 03/21/2025 9:40 AM EDT Infusion Center Hematology/Oncology [address] [place] [address] Gabbi, Chair [address] [place] [address] 4 week follow up IVIG - pt to see MASON for this appt per [facility] 04/05/2025 2:00 PM EST Infusion Center Hematology/Oncology [address] [place] [address] BENLYSTA - 05/03/2025 2:00 PM EST Infusion Center Hematology/Oncology [address] [place] [address] BENLYSTA - documented as of this encounter Visit Diagnoses Not on filedocumented in this encounter Care Teams Tire Room Supervisor Relationship Specialty Start Date End Date Manuel Klein MD PCP - General Family Medicine 02/27/22 Manuel Klein MD Referring Family Medicine 02/12/22 Manuel Klein MD [address] [place] [address] Referring Family Medicine 07/06/24 documented as of this encounter
--- OUTSIDE RECORDS SUMMARY | 2025-02-24 11:49 | XMS_ITS | Patient Health Record ---
Author Organization [facility] in [place] Address [address] [place] [address] Care Team Providers Care Manual Plate Filler Name Role Phone Britt Gay Primary Care Provider Víctor Klein [phone] Allergies Allergen (clinical drug ingredient) Drug/Non Drug [...] ctive Results Component Value Reference Range Notes FREE T4 Reviewed date:04/07/2024 08:30:55 AM Interpretation: Performing Lab: Notes/Report: [facility] , Free T4 1.01 0.76-1.46 ng/dL Performing Lab: see note - [facility] GLYCOHEMOGLOBIN A1C Reviewed date:04/07/2024 08:30:55 AM Interpretation: Performing Lab: Notes/Report: [facility] , Glycohemoglobin A1C 6.3 4.5-6.2 % ADA RECOMMENDED LIMIT 4.0 - 6.0 ADA THERAPEUTIC TARGET < 7.0 ACTION SUGGESTED > 7.0 Estimated Average Glucose 134 Performing Lab: see note - [facility] Celiac Disease Comprehensive Reviewed date:04/10/2024 09:26:28 AM [...] Qn, Serum 169 87-352 mg/dL Performed at: [facility] [address] [id number] Hotel Dining Room Cashier: Doyle Mendenhall PhD, Phone: [phone] Performing Lab: see note - [facility] LB VC SEGMENTAL PRESSURES Reviewed date:04/27/2024 10:02:21 AM Interpretation: Performing Lab: Notes/Report: Source Facility: [place] [address] Vein Report Signed Patient: JONES PANIAGUA MR#: [id number] : 1980 Acct:[id number] Age/Sex: 43 / F ADM Date: 04/26/24 Loc: Attending Dr: Judy Arciniega M.D. Ordering Physician: Judy Arciniega M.D. Date of Service: 04/26/24 Procedure(s): VC SEGMENTAL PRESSURES Accession Number(s): [id number] cc: GAY ENCISO ; Judy Arciniega M.D. The [place] [address] Patient Name: JONES PANIAGUA MRN: TBH:[id number] date: 1980 Sex: F Assigned Patient Location: Current Patient Location: Accession/Order Number: [id number] Exam Date: 04/26/2024 10:45 Report Date: 04/26/2024 12:29 At the request of: JUDY ARCINIEGA Procedure: VC SEGMENTAL PRESSURES EXAM: VC SEGMENTAL PRESSURES HISTORY: I73.9 COMPARISON: None. FINDINGS: Segmental pressures presented as follows (right, left) in mmHg. Brachial: 102, 109 Upper thigh: 175, 183 Lower thigh: 166, 177 Calf: 140, 143 DPA: 123, 148 CIVIL MANAGER: 139, 155 1st Toe: 141, 143 SAMUEL: [...] Signed By: 04/26/24 1231 DD/ 1229 TD/TT: Marine Consultant: CBC AUTO DIFF Reviewed date:08/08/2024 08:30:17 AM Interpretation: Performing Lab: Notes/Report: [facility] , White Blood Count 12.0 4.0-11.0 10 [...] 10 3/uL Performing Lab: see note - [facility] INSULIN Reviewed date:08/15/2024 01:02:11 PM Interpretation: Performing Lab: Notes/Report: [facility] , Insulin 24.1 2.6-24.9 uIU/mL Performed at: [address] [id number] Hotel Dining Room Cashier: Doyle Mendenhall PhD, Phone: [phone] Performing Lab: see note [facility] VIT[facility]IN D 25 [place] Reviewed date:08/08/2024 02:48:03 PM Interpretation: Performing Lab: Notes/Report: [facility] , Vitamin D 27.7 <20 ng/mL Vit D deficient 20-<30 ng/mL Vit D insufficient 30-100 ng/mL Vit D sufficient >100 ng/mL Potential Toxicity Performing Lab: see note [facility] Vitamin B12 Reviewed date:08/15/2024 01:02:11 PM Interpretation: Performing Lab: Notes/Report: [facility] , Vitamin B12 486 969-6989 pg/mL Performed at: [address] [id number] Hotel Dining Room Cashier: Doyle Mendenhall PhD, Phone: [phone] Performing Lab: see note [facility] US THYROID Reviewed date:08/27/2024 09:41:57 PM Interpretation: Performing Lab: Notes/Report: Source Facility: [facility]-[address] [place] [address] [place] [address] Ultrasound Report Signed Patient: JONES PANIAGUA MR#: [id number] : 1980 Acct:[id number] Age/Sex: 43 / F ADM Date: 08/24/24 Loc: US Attending Dr: Mary Grace Barfield M.D. Ordering Physician: Mary Grace Barfield M.D. Date of Service: 08/24/24 Procedure(s): US thyroid Accession Number(s): [id number] cc: GAY ENCISO ; Mary Grace Barfield M.D. [place] [address] Patient Name: JONES PANIAGUA MRN: [facility]:[id number] date: 1980 Sex: F Assigned Patient Location: US Current Patient Location: US Accession/Order Number: [id number] Exam Date: 08/24/2024 09:09 Report Date: 08/24/2024 09:22 At the request of: MARY GRACE BARFIELD MD Procedure: US thyroid THYROID ULTRASOUND [...] this was thought to be cystic. The bulking machine operator today considered it solid and it was given TI-RADS 4 classification. No internal color flow is shown. Size has not significantly changed when measuring in a comparable manner. No other nodularity is seen. US/US thyroid IMPRESSION: SIMILAR SMALL LEFT THYROID NODULE. FOLLOW-UP IN ONE YEAR IS SUGGESTED. Impression dictated by: Simin Nelson M.D.08/24/2024 9:22 AM Dictation Location: [place] [address] Electronically authenticated by: [id number] Y Date: 08/24/2024 09:22 Dictated By: Simin Nelson M.D. Signed By: 08/24/24923 DD/ 1 TD/TT: Marine Consultant: Carlos Garcia PCR Reviewed date:10/25/2024 10:18:31 AM Interpretation: Performing Lab: Notes/Report: [facility] , C. Difficile PCR NEGATIVE Performing Lab: see note ML - [facility] LB E coli Shiga Toxin EIA Reviewed date:10/26/2024 03:06:58 PM Interpretation: Performing Lab: Notes/Report: [facility] , E coli Shiga Toxin EIA See Below For Report E coli Shiga Toxin EIA E coli Shiga Toxin EIA Negative E coli Shiga Toxin EIA E coli Shiga Toxin EIA Performed at: [facility] E coli Shiga Toxin EIA E coli Shiga Toxin EIA [address] [place], [place] [id number] E coli Shiga Toxin EIA E coli Shiga Toxin EIA Hotel Dining Room Cashier: Doyle Mendenhall PhD, Phone: [phone] E coli Shiga Toxin EIA Performing Lab: see note - [facility] LB SEE REPORT - Religious Assistant Id information not found for OBX-specific broadcast producer legend TSH Reviewed date:08/08/2024 02:48:03 PM Interpretation: Performing Lab: Notes/Report: [facility] , Thyroid Stimulating Hormone 0.623 0.358-3.740 uIU/mL Performing Lab: see note ML - [facility] LB T4 Reviewed date:08/08/2024 02:48:03 PM Interpretation: Performing Lab: Notes/Report: [facility] , T4 Thyroxine 10.40 4.80-13.90 ug/dL Performing Lab: see note ML - [facility] LB PROF 14(COMP METB) Reviewed date:08/08/2024 02:48:03 PM Interpretation: Performing Lab: Notes/Report: [facility] , Sodium 141 136-145 mmol/L Potassium 3.4 [...] 0.9 Performing Lab: see note ML - [facility] LIPID PROFILE Reviewed date:08/08/2024 02:48:03 PM Interpretation: Performing Lab: Notes/Report: [facility] , Triglycerides 249 <=150 mg/dL Cholesterol 286 [...] RISK Performing Lab: see note ML - [facility] IRON Reviewed date:08/08/2024 02:48:03 PM Interpretation: Performing Lab: Notes/Report: [facility] , Iron 135.0 50.0-170.0 ug/dL Performing Lab: see note ML - [facility] GLYCOHEMOGLOBIN A1C Reviewed date:08/08/2024 02:48:03 PM Interpretation: Performing Lab: Notes/Report: [facility] , Glycohemoglobin A1C 6.7 4.5-6.2 % ADA RECOMMENDED LIMIT 4.0 - 6.0 ADA THERAPEUTIC TARGET < 7.0 ACTION SUGGESTED > 7.0 Estimated Average Glucose 146 Performing Lab: see note ML - [facility] FREE T3 Reviewed date:08/08/2024 02:48:03 PM Interpretation: Performing Lab: Notes/Report: [facility] , Free T3 2.89 2.18-3.98 pg/mL Performing Lab: see note ML - [facility] US breast LT limited Reviewed date:07/14/2024 03:37:19 PM Interpretation: Performing Lab: Notes/Report: Source Facility: [place] [address] Ultrasound Report Signed Patient: JONES PANIAGUA MR#: [id number] : 1980 Acct:[id number] Age/Sex: 43 / F ADM Date: 06/14/24 Loc: MAMMO Attending Dr: Oly Parnell Ordering Physician: Oly Parnell Date of Service: 06/14/24 Procedure(s): US breast LT limited Accession Number(s): [id number] cc: Oly Parnell; GAY ENCISO Patient Name: JONES PANIAGUA MR#: [id number] : 1980 Exam Date: 06/14/2024 Ordering Doctor: [...] Signed By: 06/14/24 1505 DD/ 1504 TD/TT: Marine Consultant: MM tomosynthesis diagnostic BI Reviewed date:07/14/2024 03:37:52 PM Interpretation: Performing Lab: Notes/Report: Source Facility: [facility]-[address] [place] [address] The [place] [id number] Mammography Report Signed Patient: JONES PANIAGUA MR#: [id number] : 1980 Acct:[id number] Age/Sex: 43 / F ADM Date: 06/14/24 Loc: MAMMO Attending Dr: Oly Parnell Ordering Physician: Oly Parnell Results: Date of Service: 06/14/24 Follow Up: Procedure(s): MM tomosynthesis diagnostic LT Accession Number(s): [id number] cc: Oly Parnell; GAY ENCISO Patient Name: JONES PANIAGUA MR#: [id number] : 1980 Exam Date: 06/14/2024 Ordering Doctor: [...] at age 56. LOCATION: [facility] BREAST COMPOSITION: There are scattered [...] M.D. Signed By: 06/14/241614 DD/ 13 TD/TT: Marine Consultant: IGP,Aptima HPV,Age Gdln Reviewed date:06/12/2024 03:56:26 PM Interpretation: Performing Lab: Notes/Report: BRUSH-SPATULA CERVIX ENDOCERVIX [facility] , Age Gdln ACOG Testing Note . TESTS RESULT FLAG UNITS REF RANGE LAB Clinician Provided Cytology Information Source.............Cervi x;Endocervix No. of containers..01 ThinPrep Vial Age Algo ACOG Vicky... 30-65 01 FLAG LEGEND: L-Low Normal,H-High Normal,LL-Alert Low,HH-Alert High <-Panic Low,>-Panic High,A-Abnormal,AA-Criti flakito Abnormal Performed at: 01 =G [address] [address] Aparna Solorzano MD, IGP, Aptima HPV, rfx 16/18,45 Note . TESTS RESULT FLAG UNITS REF RANGE LAB DIAGNOSIS: 02 NEGATIVE FOR INTRAEPITHELIAL LESION OR MALIGNANCY. Specimen adequacy: 02 Satisfactory for evaluation. Endocervical and/or squamous metaplastic cells (endocervical component) are present. Performed by: 02 Kenzie Kam, Oil Expeller ([facility]) . 02 Note: Note 02 The Pap [...] L-Low Normal,H-High Normal,LL-Alert Low,HH-Alert High <-Panic Low,>-Panic High,A-Abnormal,AA-Criti flakito Abnormal Performed at: 02 WB [facility] [address] [place] [address] Aparna Solorzano MD, HPV Aptima Negative Negative This nucleic acid amplification test detects fourteen high- risk HPV types (16,18,31,33,35,39,45,51 ,52,56,58,59,66,68) without differentiation. Performed at: =G - [facility] [address] [id number] Hotel Dining Room Cashier: Aparna Solorzano MD, Phone: [phone] Performed at: - [facility] [address], [place] [id number] Hotel Dining Room Cashier: Aparna Solorzano MD, Phone: [phone] Performing Lab: see note - [facility] LB CBC AUTO DIFF Reviewed date:05/15/2024 01:58:59 PM Interpretation: Performing Lab: Notes/Report: [facility] , White Blood Count 12.6 4.0-11.0 10 [...] 3/uL Performing Lab: see note ML - [facility] US venous doppler LE BI Reviewed date:04/17/2024 03:30:15 PM Interpretation: Performing Lab: Notes/Report: Source Facility: [facility]-[address] [place] [address] [address] Ultrasound Report Signed Patient: JONES PANIAGUA MR#: [id number] : 1980 Acct:[id number] Age/Sex: 43 / F ADM Date: 04/17/24 Loc: RAD Attending Dr: Enma WARREN Ordering Physician: Enma Murphy Date of Service: 04/17/24 Procedure(s): US venous doppler LE LT Accession Number(s): [id number] cc: GAY ENCISO ; Enma Murphy [address] [address] Patient Name: JONES PANIAGUA MRN: [id number] date: 1980 Sex: F Assigned Patient Location: RAD Current Patient Location: [facility] Accession/Order Number: [id number] Exam Date: 04/17/2024 08:15 Report Date: 04/17/2024 14:56 At the request of: ENMA MURPHY Procedure: US venous doppler LE LT [...] Signed By: 04/17/24 1458 DD/ 1456 TD/TT: Marine Consultant: CKimberly Difficile PCR Reviewed date:04/11/2024 04:22:41 PM Interpretation: Performing Lab: Notes/Report: [facility] , C. Difficile PCR NEGATIVE Performing Lab: see note ML - [facility] LB MM tomosynthesis diagnostic BI Reviewed date:04/07/2024 08:58:17 AM Interpretation: Performing Lab: Notes/Report: Source Facility: [facility]-[address] [place] [address] [place] [address] Mammography Report Signed Patient: JONES PANIAGUA MR#: [id number] : 1980 Acct:[id number] Age/Sex: 43 / F ADM Date: 04/06/24 Loc: US Attending Dr: Luan Valdivia D.O. Ordering Physician: Luan Valdivia D.O. Results: Date of Service: 04/06/24 Follow Up: Procedure(s): MM tomosynthesis diagnostic BI Accession Number(s): [id number] cc: GAY ENCISO ; Luan Valdivia D.O. Patient Name: JONES PANIAGUA MR#: [id number] : 1980 Exam Date: 04/06/2024 Ordering Doctor: [...] at age 56. LOCATION: [facility] BREAST COMPOSITION: There are scattered [...] Dictated By: Vito Yusuf M.D. Signed By: 04/07/2441 DD/ 9 TD/TT: Marine Consultant: US breast BI limited Reviewed date:04/07/2024 08:58:17 AM Interpretation: Performing Lab: Notes/Report: Source Facility: [place] [address] Ultrasound Report Signed Patient: JONES PANIAGUA MR#: [id number] : 1980 Acct:[id number] Age/Sex: 43 / F ADM Date: 04/06/24 Loc: US Attending Dr: Luan Valdivia D.O. Ordering Physician: Luan Valdivia D.O. Date of Service: 04/06/24 Procedure(s): US breast BI limited Accession Number(s): [id number] cc: GAY ENCISO ; Luan Valdivia D.O. Patient Name: JONES PANIAGUA MR#: [id number] : 1980 Exam Date: 04/06/2024 Ordering Doctor: [...] at age 56. LOCATION: [facility] BREAST COMPOSITION: There are scattered [...] Signed By: 04/07/24 0841 DD/ 0840 TD/TT: Marine Consultant: US pelvis w/ transvaginal Reviewed date:04/07/2024 08:29:59 AM Interpretation: Performing Lab: Notes/Report: Source Facility: [place] [address] Ultrasound Report Signed Patient: JONES PANIAGUA MR#: [id number] : 1980 Acct:[id number] Age/Sex: 43 / F ADM Date: 04/06/24 Loc: LAB Attending Dr: Oly Parnell Ordering Physician: Oly Parnell Date of Service: 04/06/24 Procedure(s): US pelvis w/ transvaginal Accession Number(s): [id number] cc: Oly Parnell; GAY ENCISO [place] [address] Patient Name: JONES PANIAGUA MRN: [id number] date: 1980 Sex: F Assigned Patient Location: LAB Current Patient Location: Accession/Order Number: [id number] Exam Date: 04/06/2024 15:45 Report Date: 04/07/2024 [...] Signed By: 04/07/24 0451 DD/ 0448 TD/TT: Marine Consultant: Prothrombin Time INR Reviewed date:04/06/2024 03:52:49 PM Interpretation: Performing Lab: Notes/Report: [facility] , Prothrombin Time 9.6 9.0-11.6 sec INR <0.93 DESIRED INR: 2.0-3.0 CONDITIONS NOT LISTED BELOW 2.5-3.5 FOR PROSTHETIC HEART VALVE REPLACEMENT 2.5-3.5 RECURRENT THROMBOSIS Performing Lab: see note ML - [facility] LB TSH Reviewed date:04/06/2024 03:52:49 PM Interpretation: Performing Lab: Notes/Report: [facility] , Thyroid Stimulating Hormone 0.333 0.358-3.740 uIU/mL Performing Lab: see note ML - [facility] LB PTT Reviewed date:04/06/2024 03:52:49 PM Interpretation: Performing Lab: Notes/Report: [facility] , Partial Thromboplastin Time 25.6 22.3-36.2 sec Performing Lab: see note ML - [facility] LB PREG QUANT HCG Reviewed date:04/06/2024 03:52:49 PM Interpretation: Performing Lab: Notes/Report: [facility] , HCG Quantitative <1 5-50 0.2-1 WEEK 50-500 1-2 WEEKS 100-5,000 2-3 WEEKS 500-10,000 3-4 WEEKS 1,000-50,000 4-5 WEEKS 10,000-100,000 5-6 WEEKS 15,000-200,000 6-8 WEEKS 10,000-100,000 2-3 MONTHS Performing Lab: see note ML - [facility] LB CBC AUTO DIFF Reviewed date:04/06/2024 03:52:49 PM Interpretation: Performing Lab: Notes/Report: [facility] , White Blood Count 11.4 4.0-11.0 10 [...] 10 3/uL Performing Lab: see note - [facility] LB H. pylori Stool Ag, EIA Reviewed date:10/26/2024 09:21:53 AM Interpretation: Performing Lab: Notes/Report: STOOL [facility] , H. pylori Stool Ag, EIA Negative Negative Performed at: [facility] [address] [id number] Hotel Dining Room Cashier: Doyle Mendenhall PhD, Phone: [phone] Performing Lab: see note - [facility] US abdomen complete Reviewed date:01/01/2025 12:58:33 PM Interpretation: Performing Lab: Notes/Report: Source Facility: [place] [address] Ultrasound Report Signed Patient: JONES PANIAGUA MR#: [id number] : 1980 Acct:[id number] Age/Sex: 44 / F ADM Date: 12/30/24 Loc: US Attending Dr: Ingrid Portillo NP Ordering Physician: Ingrid Portillo NP Date of Service: 12/30/24 Procedure(s): US abdomen complete Accession Number(s): [id number] cc: GAY ENCISO ; Ingrid Portillo NP [place] [address] Patient Name: JONES PANIAGUA MRN: [id number] date: 1980 Sex: F Assigned Patient Location: US Current Patient Location: US Accession/Order Number: [id number] Exam Date: 12/30/2024 15:15 Report Date: 12/30/2024 15:18 At the request of: INGRID PORTILLO NP Procedure: US abdomen complete Abdomen complete. Reason for exam: Abdominal pain. COMPARISON: None. TECHNIQUE: Transabdominal imaging of the abdominal organs were obtained. FINDINGS: The visualized portions of the pancreas appear unremarkable. Abdominal aorta appears normal in caliber. IVC appears patent along its visualized course. Fatty infiltration of the liver. Hepatopedal flow seen within the portal vein. Gallbladder appears unremarkable. CBD measures 3.5 mm. Kidneys appear unremarkable without evidence of hydronephrosis. Spleen measures 8.9 cm without focal mass. Presumed granulomas are present. No ascites is present. US/US abdomen complete IMPRESSION: No acute process is seen. Fatty infiltration of the liver. Impression dictated by: Karel Ricci Jr., D.O. 12/30/2024 3:18 PM Dictation Location: [facility] Electronically authenticated by: [id number] Y Date: 12/30/2024 15:18 Dictated By: Karel Ricci M.D. Signed By: 12/30/24 1520 DD/ 1518 TD/TT: Marine Consultant: E coli Shiga Toxin EIA Reviewed date:10/30/2024 12:57:59 PM Interpretation: Performing Lab: Notes/Report: [facility] , E coli Shiga Toxin EIA See Below For Report E coli Shiga Toxin EIA E coli Shiga Toxin EIA Negative E coli Shiga Toxin EIA E coli Shiga Toxin EIA Performed at: [facility] E coli Shiga Toxin EIA E coli Shiga Toxin EIA [address] [place], [place] [id number] E coli Shiga Toxin EIA E coli Shiga Toxin EIA Hotel Dining Room Cashier: Doyle Mendenhall PhD, Phone: [phone] E coli Shiga Toxin EIA Performing Lab: see note - [facility] LB SEE REPORT - Religious Assistant Id information not found for OBX-specific broadcast producer legend Campylobacter Culture Reviewed date:10/30/2024 12:57:59 PM Interpretation: Performing Lab: Notes/Report: [facility] , Campylobacter Culture See Below For Report Campylobacter Culture No Campylobacter species isolated. Performing Lab: see note - [facility] LB Salmonella/Shigella Screen Reviewed date:10/30/2024 12:57:59 PM Interpretation: Performing Lab: Notes/Report: [facility] , Salmonella/Shigella Screen See Below For Report Salmonella/Shigella Screen Salmonella/Shigella Screen No Salmonella or Shigella recovered. Salmonella/Shigella Screen Performing Lab: see note - [facility] LB Campylobacter Culture Reviewed date:10/17/2024 09:27:10 AM Interpretation: Performing Lab: Notes/Report: [facility] , Campylobacter Culture See Below For Report Campylobacter Culture No Campylobacter species isolated. Performing Lab: see note - [facility] LB Salmonella/Shigella Screen Reviewed date:10/17/2024 09:27:10 AM Interpretation: Performing Lab: Notes/Report: [facility] , Salmonella/Shigella Screen See Below For Report Salmonella/Shigella Screen Salmonella/Shigella Screen No Salmonella or Shigella recovered. Salmonella/Shigella Screen Performing Lab: see note - [facility] LB E coli Shiga Toxin EIA Reviewed date:10/17/2024 09:27:10 AM Interpretation: Performing Lab: Notes/Report: [facility] , E coli Shiga Toxin EIA See Below For Report E coli Shiga Toxin EIA Negative E coli Shiga Toxin EIA Performed at: [facility] E coli Shiga Toxin EIA Negative E coli Shiga Toxin EIA [address] [place] [id number] E coli Shiga Toxin EIA Negative E coli Shiga Toxin EIA Hotel Dining Room Cashier: Doyle Mendenhall PhD, Phone: [phone] E coli Shiga Toxin EIA Negative Performing Lab: see note - [facility] LB SEE REPORT - Religious Assistant Id information not found for OBX-specific broadcast producer legend Reason For Referral Diagnosis 1 Hypertension (I10) Referral Organization [facility] Referring Provider First Name Gay Referring Provider Last Name Britt Referring Provider Speciality [facility] marko Referred Provider Eladio Paula Referred Provider Specialty Cardiology Referral Priority Routine Medications Medication SIG (Take, Route, Frequency, Duration) Notes Start Date End Date Status Clotrimazole 10 MG 1 bk while on immunosuppressive medicine Mouth/Throat Three times a day; Duration: 30 day(s) 08/11/2024 Active Clotrimazole 10 MG 1 bk Mouth/Throa t Five times a day; Duration: 14 days 04/05/2024 Active Cyanocobalamin 1000 MCG/ML 1 mL Injection monthly 12/28/2023 Active Cephalexin 500 MG 2 tabs Orally bid; Duration: 10 days 08/11/2024 Active KlonoPIN 0.5 MG 1 tablet Orally Once a day prn; Duration: 30 days F41.9 12/07/2024 Active Imuran 50 MG 3 tablets Orally onc e daily Active Metoprolol Tartrate 50 MG TAKE 2 TABLETS BY MOUTH TWICE A DAY WITH FOOD; Duration: 90 days Active Methocarbamol 750 MG 1 tablet Orally Q H S prn; Duration: 10 days 07/27/2023 Active Fluocinonide 0.05 % 1 application Car Servicer ally Once a day- as needed; Duration: 30 days Active Cymbalta 20 MG 1 capsule Orally Onc e a day; Duration: 30 days 02/01/2024 Active Hydroxychloroquine Sulfate 400 MG 1 capsule Orally once daily; Duration: 30 days Active Folic Acid Active Dificid 200 MG 1 tablet Orally Twic e a day; Duration: 10 day(s) 08/11/2024 Active Pantoprazole Sodium 40 MG 1 tablet 1/2 t o 1 hour before morning meal Orally Once a day; Duration: 90 days 07/27/2024 Active amLODIPine Besylate 5 MG 1 tablet Orally Once a day; Duration: 30 days 02/03/2024 Active Voltaren 1 % as directed External ly as needed 02/01/2024 Active Albuterol Sulfate HFA 108 (90 Base) MCG/ACT 2 puff as needed Inhalation every 4 hrs; Duration: 30 days 08/05/2023 Active Vitamin D (Ergocalciferol) 1.25 MG (30037 UT) 1 capsule Orally once weekly; Duration: 28 days Active Clobetasol Propionate 0.05 % APPLY TO SCALP IN SHOWER 3 TO 4 TIMES A WEEK External; Duration: 30 Days Active Benlysta 200 MG/ML 200mg Subcutaneous o nce weekly Active Triamcinolone Acetonide 0.025 % APPLY TO AFFECTED AREA TWICE DAILY NEEDED FOR 30 DAYS External; Duration: 30 Days Active Pregabalin 75 MG 3 capsule Orally onc e daily- as needed; Duration: 30 days Active Vancomycin HCl 125 MG 1 capsule Orally O nce a day; Duration: 15 days 04/14/2024 Active Trulicity 1.5 MG/0.5ML as directed Subcu taneous weekly; Duration: 28 days 07/04/2024 Active Nystatin 301490 UNIT/ML 4 mL Mouth/Throa t Four times a day; Duration: 7 days Active predniSONE 10 MG 1 tablet Orally once daily; Duration: 30 days Active HYDROcodone-Acetaminophen 7.5-325 MG 1 tablet as needed Orally every 6 hrs 01/08/2025 Active Social History Tobacco Use: Social History [...] User Modera te cigarette smoker (10-19 cigs/day) Alcohol Screen (Audit-C) Question Answer Notes Did you have a drink containing alcohol in the p ast year? No Points 0 Interpretation Negative AUDIT-C (Standard) Question Answer Notes Did you have a drink containing alcohol in the p ast year? 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 (G47.30) Active confirmed Problem Generalized enlarged lymph nodes (964572271) Generalized enlarged lymph nodes (R59.1) Active confirmed Problem Hypertension (62857418) Hyperten vickie (I10) Active confirmed Problem Gastroesophageal ref lux disease (289659570) GERD (gastroesophag eal reflux disease) (K21.9) Active confirmed Problem Anxiety (77065599) Anxiety (F41.9) Active confirmed Problem Leukocytosis (847868041) Elevated WBC count (D72.829) Active confirmed Problem Thyroid nodule (486019016) Thyroid nodule (E04.1) Active confirmed Problem Fatty liver (355520687) Fatty li daniel (K76.0) Active confirmed Problem Lupus (512078394) Lupus (M32.9) Active confirme d Problem Abdominal pressure (459540398) Abdominal pressure (R10.9) Active confirmed Problem Raynaud's disease (099963651) Raynauds phenomenon (I73.00) Active confirmed Problem Pure hypercholesterolemia (760973837) Pure hypercholester olemia, unspecified (E78.00) Active confirmed Problem Prediabetes (796228078) Pre-diab etes (R73.03) Active confirmed Vital Signs Temperature 98.2 degrees Fahrenheit 05/15/2024 Blood pressure diastolic 68 mm Hg 08/11/2024 Height 67 in 10/23/2024 Blood pressure systolic 120 mm Hg 08/11/2024 Weight 290 lbs 08/11/2024 BMI 45.42 kg/m2 08/11/2024 Encounters Encounter Location Date Provider Diagnosis [facility] [address] [facility] [place] [address] 12/11/2024 Gay Enciso [facility] [address] [facility] [facility] [place] [address] 02/09/2025 aGy Enciso Jaw pain R68.84 [facility] [address] [facility] [place] [address] 02/23/2025 Gay Enciso Pre-diabetes R73.03 and 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-term current use of medication Z79.899 [facility] [address] [facility] [place] [address] 10/25/2024 Gay Enciso [facility] [address] [facility] [place] [address] 10/26/2024 Gay Enciso [facility] [address] [facility] [place] [address] 10/30/2024 Gay Enciso Thrush B37.0 [facility] [address] [facility] [place] [address] 11/03/2024 Gay Enciso [facility] [address] [facility] [place] [address] 11/06/2024 Víctor Hoy Thrush B37.0 and Anxiety F41.9 [facility] [address] [facility] [place] [address] 12/05/2024 Gay Enciso Anxiety F41.9 [facility] [address] [facility] [place] [address] 08/16/2024 Gay Enciso Pre-diabetes R73.03 [facility] [address] [facility] [place] [address] 08/24/2024 Gay Enciso [facility] [address] [place] [address] 09/01/2024 Gay Enciso Anxiety F41.9 [facility] [address] [facility] [place] [address] 10/06/2024 Gay Enciso Anxiety F41.9 and Diarrhea R19.7 [facility] [address] [facility] [place] [address] 10/13/2024 Gay Enciso [facility] [address] [facility] [place] [address] 10/13/2024 Gay Enciso [facility] [address] [facility] [place] [address] 04/28/2024 Gay Enciso Anxiety F41.9 [facility] [address] [facility] [place] [address] 05/01/2024 Gay Enciso Hypertension I10 and Oral candidiasis B37.0 [facility] [address] [facility] [place] [address] 05/15/2024 Gay Enciso [facility] [address] [facility] [place] [address] 06/16/2024 Gay Enciso Hypertension I10 [facility] [address] [facility] [place] [address] 07/04/2024 Gay Enciso [facility] [address] [facility] [place] [address] 07/27/2024 Gay Enciso [facility] [address] [facility] [place] [address] 02/28/2024 Gay Enciso [facility] [address] [facility] [place] [address] 03/06/2024 Gay Enciso Diarrhea R19.7 [facility] [address] [facility] [place] [address] 04/11/2024 Gay Enciso [facility] [address] [facility] [place] [address] 04/17/2024 Gay Enciso [facility] [address] [facility] [place] [address] 04/17/2024 Gay Enciso [facility] [address] [place] [address] 04/28/2024 Gay Enciso Hypertension I10 [facility] [address] [place] [address] 02/25/2024 Gay Enciso Hypertension I10 [address] [address] 07/27/2024 Gay Enciso GERD (gastroesophage al reflux disease) K21.9 and Anxiety F41.[address] [address] 08/11/2024 Víctor Hoy Generalized enlarged lymph nodes R59.1 and Elevated WBC count D72.[address] [address] 05/15/2024 Gay Enciso Enlarged lymph nodes R59.9 and C. difficile diarrhea A04.[address] [place] [address] 04/05/2024 Gay Enciso Oral candidiasis B37 .[address] [place] [address] 04/14/2024 Gay Enciso Lupus M32.[address] [address] 07/04/2024 Gay Enciso Pre-diabetes R73.03 and Thrush B37.[address] [place] [address] 10/23/2024 Gay Enciso Diarrhea R19.7 ; [place] D (gastroesophageal reflux disease) K21.9 and Generalized enlarged lymph nodes R59.1 [address] [place] [address] 01/08/2025 Gay Enciso Rib pain on right si de R07.81 ; Jaw pain R68.84 and Generalized enlarged lymph nodes R59.1 Assessments Encounter Date Diagnosis (ICD Code) Assessment Notes Treatment Notes Treatment Clinical Notes Section Notes 04/05/2024 Oral candidiasis (ICD-10 - B37.0) fu as needed 04/14/2024 Lupus (ICD-10 - M32.9) c diff prophylaxis Vanco 125 mg 05/15/2024 Enlarged lymph nodes (ICD-10 - R59.9) 05/15/2024 C. difficile diarrhea (ICD-10 - A04.72) hx of on Amoxicillin, concerned for recurrence 07/04/2024 Pre-diabetes (ICD-10 - R73.03) 07/04/2024 Thrush (ICD-10 - B37.0) requesting referral [facility] for second opinion recurrent thrush? roof of mouth sore, coating 07/27/2024 GERD (gastroesophagea l reflux disease) (ICD-10 - K21.9) 07/27/2024 Anxiety (ICD-10 - F41.9) CSA signed OARRS reviewed discussed need to fu psych will prescribe klonopin short term, helped in past pt voices understanding 08/11/2024 Generalized enlarged lymph nodes (ICD-10 - R59.1) 08/11/2024 Elevated WBC count (ICD-10 - D72.829) 10/23/2024 Diarrhea (ICD-10 - R19.7) 02/25/2024 Hypertension (ICD-10 - I10) 03/06/2024 Diarrhea (ICD-10 - R19.7) 04/28/2024 Hypertension (ICD-10 - I10) 04/28/2024 Anxiety (ICD-10 - F41.9) 05/01/2024 Hypertension (ICD-10 - I10) 06/16/2024 Hypertension (ICD-10 - I10) 08/16/2024 Pre-diabetes (ICD-10 - R73.03) 09/01/2024 Anxiety (ICD-10 - F41.9) 10/06/2024 Anxiety (ICD-10 - F41.9) 01/08/2025 Rib pain on right side (ICD-10 - R07.81) 01/08/2025 Jaw pain (ICD-10 - R68.84) 10/30/2024 Thrush (ICD-10 - B37.0) 11/06/2024 Thrush (ICD-10 - B37.0) 12/05/2024 Anxiety (ICD-10 - F41.9) 02/09/2025 Jaw pain (ICD-10 - R68.84) 02/23/2025 Pre-diabetes (ICD-10 - R73.03) 02/23/2025 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-term current use of medication (ICD-10 - Z79.899) 11/06/2024 Anxiety (ICD-10 - F41.9) 01/08/2025 Generalized enlarged lymph nodes (ICD-10 - R59.1) 10/06/2024 Diarrhea (ICD-10 - R19.7) 05/01/2024 Oral candidiasis (ICD-10 - B37.0) 10/23/2024 GERD (gastroesophagea l reflux disease) (ICD-10 - K21.9) 10/23/2024 Generalized enlarged lymph nodes (ICD-10 - R59.1) Plan Of Treatment Pending Test Test Name Order Date CMP (COMPLETE METABOLIC PANEL) CMP (COMPLETE METABOLIC PANEL) CULTURE, STOOL 10/23/2024 HEMOGLOBIN A1C (GLYCO) 07/27/2024 HEMOGLOBIN A1C (GLYCO) 06/24/2023 IRON, TOTAL 07/27/2024 LIPID PANEL (CHOL/TRIG/HDL/LDL) 07/28/19 25 CBC WITH DIFF 07/27/2024 CBC WITH DIFF [...] STOOL 10/23/2024 C DIFF TOX PCR STOOL 09/08/2023 C DIFF TOX PCR STOOL 10/06/2024 C DIFF TOX PCR STOOL 12/20/2023 CMP - Comprehensive Metabolic Panel 07/2024 C. DIFF PCR 08/10/2023 C. DIFF PCR 07/27/2023 CULTURE URINE 06/25/2023 GLYCOHEMOGLOBIN A1C 02/23/2025 LIPID PROFILE 02/10/2023 STOOL CULTURE 09/08/2023 STOOL CULTURE 07/27/2023 STOOL CULTURE 10/06/2024 VITAMIN B12 07/27/[address] WO CON 08/20/[address] HEAD_NECK 07/27/2023 US KALYN DOP LEG MARK 02/10/2024 XR CHEST 2 V 08/17/2023 THYROID PANEL (T4/TSH/FREE T3) CT angio chest 12/08/2023 CMP (COMP MET ONEIL) w/eGFR CKD-EPI 2024 Insurance Providers Payer Name Payer Address Payer Phone Subscriber Number Group Number Insured Name Patient Relationship to Insured Coverage Start Date Coverage End Date [employer] [place] [employer] [address] [place] [address] [id number] Jones Paniagua Self - patient is the insured Medical (General) History Medical History History ICD Code Chronic fatigue 780.79 Anxiety F41.9 Cervical lymphadenopathy R59.0 GERD (gastroesophageal reflux disease) K 21.9 Hypercholesterolemia E78.00 Hyperlipidemia E78.5 Lupus M32.9 Tachycardia R00.0 Prediabetes R73.09 Hypertension I10 Surgical History Surgery Date(Month/Year) lymph node biopsy 2020
--- OUTSIDE RECORDS SUMMARY | 2025-02-24 11:49 | XMS_ITS | Encounter Summary ---
Author Organization [facility] Address [address] [place] [address] Care Team Providers Care Ton Container Filler Name Role Phone Aime Davidson MD, Lui Nunez Primary Care Provid er Gay De La Torre(Historical) BODY AND FENDER WORKER.LEAD PRESSMAN Primary Care Provider Unavailable Manuel Klein MD Unavailable [phone] Manuel Klein MD Primary Care Provider [phone] Manuel Klein MD Unavailable [phone] Source Comments In the event this information is protected by the Federal Confidentiality of Alcohol and Drug AbusePatient Records regulations: The Federal rules restrict any use of the information to criminally investigate or prosecute any alcohol or drug abuse patient.[facility] Encounter Details Date Type Department Care Team (Late st Contact Info) Description 12/25/2014 Get Medical Advice Internal Medicine [facility] [place] [address] Lui Salomon Jr., MD [address] [address] Test Result Question Social History [...] [facility] Center Hematology/Oncology [address] [place] [address] B[place]STA - 03/21/2025 9:00 AM EDT Office Visit [facility] [place] [address] 4 week follow up IVIG - pt to see MASON for this appt per Fara 03/21/2025 9:20 AM EDT Visit (SP) Office Hematology/Oncology [facility] [place] [address] Jose Cho MD [address] [place] [address] 4 week follow up IVIG - pt to see MASON for this appt per Fara 03/21/2025 9:40 AM EDT Infusion Center Hematology/Oncology [address] [place] [address] Gabbi, Chair [address] [place] [address] 4 week follow up IVIG - pt to see MASON for this appt per Fara 04/05/2025 2:00 PM EST Infusion Center Hematology/Oncology [address] [place] [address] B[place] - 05/03/2025 2:00 PM EST Infusion Center Hematology/Oncology [address] [address] [place] - documented as of this encounter Visit Diagnoses Not on filedocumented in this encounter Care Teams Ton Container Filler Relationship Specialty Start Date End Date Lui Salomon Jr., MD PCP - General Internal Medicine 05/31/14 07/08/20 Gay De La Torre(Historical), BODY AND FENDER WORKER.LEAD PRESSMAN PCP - General Family Medicine 10/24/21 02/26/22 Manuel Klein MD PCP - General Family Medicine 02/27/22 Manuel Klein MD Referring Family Medicine 02/12/22 Manuel Klein MD [address] [place] [place] [address] Referring Family Medicine 07/06/24 documented as of this encounter
--- OUTSIDE RECORDS SUMMARY | 2025-02-24 11:49 | XMS_ITS | Encounter Summary ---
Author Organization [facility] Address [address] [place] [address] Care Team Providers Care Dry Cleaning Attendant Name Role Phone Aime Davidson MD, Lui Nunez Primary Care Provid er Gay De La Torre(Historical) CONSUMER CREDIT COUNSELOR.BUSINESS INTEGRATION ANALYST Primary Care Provider Unavailable Manuel Klein MD Unavailable Manuel Klein MD Primary Care Provider [phone] Manuel Klein MD Unavailable [phone] Source Comments In the event this information is protected by the Federal Confidentiality of Alcohol and Drug AbusePatient Records regulations: The Federal rules restrict any use of the information to criminally investigate or prosecute any alcohol or drug abuse patient.[facility] Encounter Details Date Type Department Care Team (Late st Contact Info) Description 06/06/2015 Patient Msg Internal Medicine [facility] [address] [place] [address] Lui Salomon Jr., MD [address] [place] [address] Appointment Cancellation Request Social History [...] Contact Info) Description 03/08/2025 2:00 PM EDT [facility] Center Hematology/Oncology [address] [place] [address] B[place]STA - 03/21/2025 9:00 AM EDT Office Visit [facility] [place] [address] 4 week follow up IVIG - pt to see MASON for this appt per Fara 03/21/2025 9:20 AM EDT Visit (SP) Office Hematology/Oncology [facility] [place] [address] Jose Cho MD [address] [place] [address] 4 week follow up IVIG - pt to see MASON for this appt per Fara 03/21/2025 9:40 AM EDT Infusion Center Hematology/Oncology [address] [place] [address] Gabbi, Chair [address] [place] [address] 4 week follow up IVIG - pt to see MASON for this appt per Fara 04/05/2025 2:00 PM EST Infusion Center Hematology/Oncology [address] [place] [place] [address] BEN[place]STA - 05/03/2025 2:00 PM EST Infusion Center Hematology/Oncology [address] [place] [address] B[place]STA - documented as of this encounter Visit Diagnoses Not on filedocumented in this encounter Care Teams Dry Cleaning Attendant Relationship Specialty Start Date End Date Lui Salomon Jr., MD PCP - General Internal Medicine 05/31/14 07/08/20 Gay De La Torre(Historical), CONSUMER CREDIT COUNSELOR.BUSINESS INTEGRATION ANALYST PCP - General Family Medicine 10/24/21 02/26/22 Manuel Klein MD PCP - General Family Medicine 02/27/22 Manuel Klein MD Referring Family Medicine 02/12/22 Manuel Klein MD [address] [facility] [place] [address] Referring Family Medicine 07/06/24 documented as of this encounter
--- OUTSIDE RECORDS SUMMARY | 2025-02-24 11:49 | XMS_ITS | Clinical Summary ---
Author Organization [facility] Healthcare Address [address] [facility] [place] [address] Care Team Providers Care Fence Installer Foreman Name Role Phone Gay Enciso MD Unavailable [phone] Allergies Active Allergy Reactions Criticality Noted [...] 23 Active ergocalciferol (Vitamin D2) 1.25 MG (52044 UT) capsule Take 50,000 Units by mouth [...] cap.. 16 g 12 12/04/19 24 Active diclofenac sodium 1 % gel 02/01/20 [...] tablet by mouth daily 28 tablet 11 03/23/20 24 Active pantoprazole (ProtoNix) 20 MG EC tablet [...] (Protopic) 0.1 % ointmentIndicatio ns:Lupus erythematosus tumidus Apply to affected area on forehead bid prn flares, hold if clear 30 g 07/26/19 25 Active KlonoPIN 0.5 MG tablet 1 tablet Orally Once a day prn for 30 days 09/02/19 25 Active Trulicity 1.5 MG/0.5ML solution auto-injector INJECT SUBCUTANEOUSLY ONCE A WEEK DIRECTED 08/18/19 25 Active immune globulin, human, (Gammagard) infusion Infuse into a venous catheter Active tretinoin (Retin-A) 0.025 % creamIndications: Acne vulgaris Apply to face, once daily at evening/night time, 30 day supply 45 g 11/24/19 25 Active thiamine (Vitamin B-1) 100 MG tabletIndications :Autoimmune disease (HCC),Fibromyalgi a,Numbness Take 1 tablet (100 mg) by mouth in the morning. 90 tablet 3 02/07/20 24 025 Hospital, Clinic, or Other Facility Administered Medication Ordered Dose Route Frequency Start Date End Date Status triamcinolone acetonide (Kenalog) injection 2.5 mgIndications:Hidrad enitis suppurativa,Pain 2.5 mg INTRA-LESION Once 11/23/2024 Active triamcinolone acetonide (Kenalog) injection 2.5 mgIndications:Hidrad enitis suppurativa 2.5 mg INTRA-LESION Once 02/14/2025 02/14/2025 Ende d Active Problems Problem Noted Date Diagnosed Date [...] History. Tobacco use disorder 07/06/2023 Cytomegalovirus infection 07/06/2023 Disturbance of skin sensation 07/06/2023 Enthesopathy of hip region 07/06/2023 LPRD (laryngopharyngeal reflux disease) 07/06/19 Myalgia 07/06/2023 Oral lesion 07/06/2023 Pain, hip 07/06/2023 Chronic fatigue and malaise 06/10/2023 Anxiety 06/09/2023 Depression, recurrent 06/09/2023 Essential hypertension 06/09/2023 Autoimmune disease 06/01/2023 Fibromyalgia 06/01/2023 Autonomic dysfunction 06/01/2023 Dizziness 06/01/2023 Tachycardia 06/01/2023 Nonintractable episodic headache 06/01/2023 Bilateral wrist pain 02/04/2023 roasterman 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 02/04 Steroid-induced [...] Encounters Date Type Department Care Team Description 02/23/2025 Travel 02/19/2025 Travel 02/14/2025 3:20 PM EDT Office Visit [facility] [address] [place] [phone] Cynthia English MD Pilonidal cyst (Primary Dx); Hidradenitis suppurativa 02/14/2025 Bamboo flowsheet [facility] [address] [place] [phone] Cynthia English MD 02/14/2025 Travel 01/30/2025 Results Follow-Up [facility] [address] [place] [address] Sabi Barker LPN Left breast US limited 01/26/2025 11:45 AM EDT Ancillary Procedure [facility] [address] [place] [address] Other benign mammary dysplasias of left breast 01/26/2025 Travel 12/07/2024 Refill [facility] [address] [place] [address] Андрей Hearn, Eustachian tube dysfunction, bilateral; Non-recurrent acute serous otitis media of both ears 12/01/2024 Telephone [facility] [address] [place] [phone] Oly Plascencia PA 11/28/2024 Telephone [facility] [address] [place] [address] Trinh Montes LPN Prior Authorization from Last 3 Months Family History Medical History Relation Name Comments lung issue Child 1 son with lung issue, 3 daughters No Known Problems Daughter 1 Cancer Father Micheal Pancreatitis Father Micheal Stomach cancer Father Micheal Diabetes Maternal Grandmother Clelaura Heart failure Maternal Grandmother Clelagiovany Rheum arthritis Maternal Grandmother Clelagiovany Crohn's disease Mother Nieves Thyroid disease Mother [...] 1 29.8 Started: 05/24/1995 Smokeless Tobacco: Never Tobacco Cessation:Ready [...] Associates [address] [facility] [address] [place] [address] Terence Blum MD [address] [facility] [address] [place] [address] 03/19/2025 10:20 AM EDT Office Visit [facility] [address] [facility] [address] [place] [address] Mary Grace Mejias MD [address] [facility] [address] [place] [address] 07/25/2025 11:00 AM EST Office Visit [facility] [address] [place] [address] Cynthia English MD [address] [place] [address] Health Maintenance Due Date Last Done Comments Influenza Vaccine (#1) 2025 Mammogram 04/07/2025 04/07/2024 Pap Smear 06/06/2027 06/06/2024, 09/10/2022 Cervical Cancer Screening 09/11/2027 HPV/Cotest 09/11/2027 Procedures Procedure Name Priority Date/Time Associated Diagnosis Comments BI US BREAST LIMITED LEFT Routine 01/26/2025 12:14 PM EDT Other benign mammary dysplasias of left breast PAP SMEAR Routine 06/06/2024 12:00 AM EST MM TOMOSYNTHESIS DIAGNOSTIC BI 04/07/2024 8:40 AM EST from Last 3 Months or Most Recently Relevant to Health Maintenance Results * Left breast US limited (01/26/2025 12:14 PM EDT) Anatomical Region Laterality Modality Breast Left Ultrasound 01/26/2025 3:38 PM EDT Impressions 01/26/2025 3:52 PM EDT Impression: Left breast axillary ultrasound study demonstrates likely to sebaceous cysts in the subdermal left breast axillary region as described. 1 of these findings likely correlates with previously noted finding without significant change. No obvious neoplasm. When correlating the studies no convincing evidence of neoplasm. Follow-up left breast axillary ultrasound study in 6 months is recommended to assess stability. BI-RADS 3 ELECTRONICALLY SIGNED BY: Yassine Owens M.D. Narrative 01/26/2025 3:52 PM EDT Examination: BI US BREAST LIMITED LEFT Reason for Study: Sebaceous gland cyst Comparison: Left breast axillary ultrasound study dated 06/14/2024. Technique: Left breast axillary ultrasound study was performed to include area of previously noted clinically palpable lump. Findings: In the left axillary subdermal region there are 2 areas of decreased echogenicity with low-level internal echoes. These areas are approximately 1.4 cm from each other. No obvious internal vascularity or posterior shadowing related to these areas. Findings measure approximately 0.8 x 0.8 x 0.4 cm and 0.8 x 0.7 x 0.5 cm, 1 of these likely correlates with previously noted finding without significant change. Findings most likely represent sebaceous cysts. No obvious solid vascular mass to suggest neoplasm. No obvious abnormal calcifications or vascularity. No obvious adenopathy. us Oly SALGADO US PROCEDURES Final Result * Pap Smear (06/06/2024 12:00 AM EST) Swab Cervical swab / Unknown us [facility] ORDERABLES Final Re sult EXTERNAL LAB * MM TOMOSYNTHESIS DIAGNOSTIC BI (04/07/2024 8:40 AM EST) Anatomical Region Laterality Modality Other 04/07/2024 8:40 AM EST Narrative 04/07/2024 8:41 [place] [address] Mammography Report Signed Patient: JONES PANIAGUA MR#: [id number] : 1980 Acct:[id number] Age/Sex: 43 / F ADM Date: 04/06/24 Loc: US Attending Dr: Luan Valdivia D.O. Ordering Physician: Luan Valdivia D.O. Results: Date of Service: 04/06/24 Follow Up: Procedure(s): MM tomosynthesis diagnostic BI Accession Number(s): [id number] cc: GAY ENCISO ; Luan Valdivia D.O. Patient Name: JONES PANIAGUA MR#: [id number] : 1980 Exam Date: 04/06/2024 Ordering Doctor: [...] stomach cancer at age 56. LOCATION: [facility] BREAST COMPOSITION: There are scattered [...] Vito Yusuf M.D. Signed By: 04/07/2441 DD/ TD/TT: Lead Electrical Engineer: Procedure Note Radiology, Radiologist, MD - 04/07/2024 [place] [address] Mammography Report Signed Patient: JONES PANIAGUA BMR#: [id number] : 1980Acct:[id number] Age/Sex: 43 / FADM Date: 04/06/24 Loc: US Attending Dr: Luan Valdivia D.O. Ordering Physician: Luan Valdivia D.O.Results: Date of Service: 04/06/24Follow Up: Procedure(s): MM tomosynthesis diagnostic BI Accession Number(s): [id number] cc: GAY ENCISO ; Luan Valdivia D.O. Patient Name: JONES PANIAGUA MR#: [id number] : 1980 Exam Date: 04/06/2024 Ordering Doctor: DR Luan Valdivia . RADIOLOGY REPORT PROCEDURE: MM TOMOSYNTHESIS DIAGNOSTIC BI, 04/06/2024, 15:20 US BREAST BI LIMITED, 04/06/2024, 15:37 COMPARISON: MM TOMOSYNTHESIS SCREENING BI, 09/23/2023. MG MAMM [id number] MARK CAD, 09/01/2022. MG MAMM SCREEN 3D [...] stomach cancer at age 56. LOCATION: [facility] BREAST COMPOSITION: There are scattered [...] M.D. Signed By:04/07/24 0841 DD/ 0840 TD/TT: Lead Electrical Engineer: [facility] Final Result from Last 3 Months or Most Recently Relevant to Health Maintenance Insurance [employer] Care Teams Fence Installer Foreman Relationship Specialty Start Date End Date Gay Enciso MD [address] [place] [id number] Referring Physician Family Medicine 07/18/24
--- OUTSIDE RECORDS SUMMARY | 2025-02-24 11:49 | XMS_ITS | Encounter Summary ---
Author Organization [facility] Address [address] [facility] [place] [address] Care Team Providers Care Stull Hewer Name Role Phone House, Charles Culver MD Primary Care Provider [phone] Gay De La Torre MD Unavailable [phone] Reason for Visit * Reason Comments Med Refill Encounter Details Date Type Department Care Team (Late Contact Info) Description 07/02/2024 Refill [facility] [address] [facility] [address] [place] [address] Mary Grace Mejias MD [address] [facility] 130 [place] [address] LPRD (laryngopharyngeal reflux disease) Social History Tobacco [...] AM EDT Consult [facility] [address] [facility] [address] [place] [address] Terence Blum MD 7[address] [facility] 150 [place] [address] 03/19/2025 10:20 AM EDT Office Visit [facility] [address] [place] [address] Mary Grace Mejias MD 112 [facility] [address] [place] [address] 07/25/2025 11:00 AM EST Office Visit [facility] [address] [place] [address] Cynthia English MD [address] [place] [address] documented as of this encounter Visit Diagnoses Diagnosis LPRD (laryngopharyngeal reflux disease) Acute laryngitis, without mention of obstruction documented in this encounter Care Teams Stull Hewer Relationship Specialty Start Date End Date Charles Nicole MD PCP - General Family Medicine 02/09/24 07/17/24 Gay De La Torre MD [address] [place] [address] Referring Physician Family Medicine 07/18/24 documented as of this encounter
--- OUTSIDE RECORDS SUMMARY | 2025-02-24 11:49 | XMS_ITS | Encounter Summary ---
Author Organization [facility] Address [address] [place] [address] Care Team Providers Care Vice President Network Development Name Role Phone Manuel Klein MD Unavailable [phone] Manuel Klein MD Primary Care Provider +-4 Manuel Klein MD Unavailable [phone] Source Comments In the event this information is protected by the Federal Confidentiality of Alcohol and Drug AbusePatient Records regulations: The Federal rules restrict any use of the information to criminally investigate or prosecute any alcohol or drug abuse patient.[facility] Reason for Visit * Reason Comments Results Encounter Details Date Type Department Care Team (Late st Contact Info) Description 02/21/2025 Telephone Cancer Appts [facility] [place] [address] Fara Lopez APRN.[facility] [address] [place] [address] Results Social History Tobacco Use Types Packs/Day Years [...] 4 09/24/2022 Data from: https://www.neighborhoodatlas.medicine.[facility]/. Last address used for calculation [address] 09/24/2022 Comments No Sex and Gender [...] Telephone Encounter - Enma Hamm RN - 02/23/2025 8:07 AM EDT Pt aware of results via dloHaiti. Questions asked in [employer] encounter, response sent by Fara. RTC with Mason, 4 weeks Enma Hamm RN * Telephone Encounter - Sherrie Cortes - 02/21/2025 11:55 AM EDT Images from the original note were not included. documented in this encounter Plan of Treatment Upcoming Encounters Date Type Department Care Team (Latest Contact Info) Description 03/08/2025 2:00 PM EDT Infusion Center Hematology/Oncology [address] [facility] [place] [address] BENLYSTA - 03/21/2025 9:00 AM EDT Office Visit [facility] [address] [place] [address] 4 week follow up IVIG - pt to see MASON for this appt per Fara 03/21/2025 9:20 AM EDT Visit (SP) Office Hematology/Oncology [address] [facility] [place] [address] Jose Cho MD [address] [facility] [place] [address] 4 week follow up IVIG - pt to see MASON for this appt per Fara 03/21/2025 9:40 AM EDT Infusion Center Hematology/Oncology [address] [place] [address] Gabbi, Chair [address] [facility] [place] [address] 4 week follow up IVIG - pt to see MASON for this appt per Fara 04/05/2025 2:00 PM EST Infusion Center Hematology/Oncology [address] [facility] [place] [address] BENLYSTA - 05/03/2025 2:00 PM [facility] Infusion Center Hematology/Oncology [address] [facility] [place] [address] BENLYSTA - documented as of this encounter Visit Diagnoses Not on filedocumented in this encounter Care Teams Vice President Network Development Relationship Specialty Start Date End Date Manuel Klein MD PCP - General Family Medicine 02/27/22 Manuel Klein MD Referring Family Medicine 02/12/22 Manuel Klein MD [address] [place] [address] Referring Family Medicine 07/06/24 documented as of this encounter
--- OUTSIDE RECORDS SUMMARY | 2025-02-24 11:49 | XMS_ITS | Encounter Summary ---
Author Organization [facility] Address [facility] [place] [address] Care Team Providers Care Instrumentation Controls Engineer Name Role Phone Manuel Klein MD Unavailable [phone] Manuel Klein MD Primary Care Provider +-4 Manuel Klein MD Unavailable [phone] Source Comments In the event this information is protected by the Federal Confidentiality of Alcohol and Drug AbusePatient Records regulations: The Federal rules restrict any use of the information to criminally investigate or prosecute any alcohol or drug abuse patient.[facility] Encounter Details Date Type Department Care Team (Late st Contact Info) Description 03/04/2023 Patient [facility] HB-[facility] [address] [place] [address] Provider, Ccf Benlysta Injection Video Social History [...] is lower risk 4 09/24/2022 Data from: https://www.neighborhoodatlas.medicine.[facility].edu/. Last address used for calculation [address] 09/24/2022 Comments No Sex and Gender [...] Contact Info) Description 03/08/2025 2:00 PM EDT [facility] Center Hematology/Oncology [address] [facility] [place] [address] BENLYSTA - 03/21/2025 9:00 AM EDT Office Visit [facility] Laboratory [address] [facility] [place] [address] 4 week follow up IVIG - pt to see MASON for this appt per Fara 03/21/2025 9:20 AM EDT Visit (SP) Office Hematology/Oncology [address] [facility] [place] [address] Jose Cho MD [address] [facility] [place] [address] 4 week follow up IVIG - pt to see MASON for this appt per Fara 03/21/2025 9:40 AM EDT Infusion Center Hematology/Oncology [address] [facility] [place] [address] Gabbi, Chair 4 [address] [facility] [place] [address] 4 week follow up IVIG - pt to see MASON for this appt per Fara 04/05/2025 2:00 PM EST Infusion Center Hematology/Oncology [address] [place] [address] [place] [address] BENLYSTA - 05/03/2025 2:00 PM [facility] Infusion Center Hematology/Oncology [address] [place] [address] [place] [address] BENLYSTA - documented as of this encounter Visit Diagnoses Not on filedocumented in this encounter Care Teams Instrumentation Controls Engineer Relationship Specialty Start Date End Date Manuel Klein MD PCP - General Family Medicine 02/27/22 Manuel Klein MD Referring Family Medicine 02/12/22 Manuel Klein MD [address] [place] [address] Referring Family Medicine 07/06/24 documented as of this encounter
--- OUTSIDE RECORDS SUMMARY | 2025-02-24 11:49 | XMS_ITS | Encounter Summary ---
Author Organization [facility] Address [address] [place] [address] Care Team Providers Care Director Of Clinical Applications Name Role Phone Manuel Klein MD Unavailable [phone] Manuel Klein MD Primary Care Provider +-4 Manuel Klein MD Unavailable [phone] Source Comments In the event this information is protected by the Federal Confidentiality of Alcohol and Drug AbusePatient Records regulations: The Federal rules restrict any use of the information to criminally investigate or prosecute any alcohol or drug abuse patient.[facility] Reason for Visit * Reason Comments Refill Request Encounter Details Date Type Department Care Team (Late st Contact Info) Description 04/26/2024 Refill Rheumatology [address] [place], [place] [id number] Sandra Park MD [address] [place] [address] Refill Request Social History Tobacco [...] risk 4 09/24/2022 Data from: https://www.neighborhoodatlas.medicine.[facility]/. Last address used for calculation [address] 09/24/2022 Comments No Sex and Gender [...] 12/25/2014 11:14 AM EDT Chichi De Jessu * Do you have serious difficulty walking [...] 2:00 PM EDT [facility]Oncology [address] [facility] [place] [address] BENLYSTA - 03/21/2025 9:00 AM EDT Office Visit [facility] Laboratory [address] [place] [address] [place] [address] 4 week follow up IVIG - pt to see MASON for this appt per [facility] 03/21/2025 9:20 AM EDT Visit (SP) Office Hematology/Oncology [address] [facility] [place] [address] Jose Cho MD [address] [facility] [place] [address] 4 week follow up IVIG - pt to see MASON for this appt per [facility] 03/21/2025 9:40 AM EDT Infusion Center Hematology/Oncology [address] [facility] [place] [address] Gabbi, Chair [address] [facility] [place] [address] 4 week follow up IVIG - pt to see MASON for this appt per [facility] 04/05/2025 2:00 PM EST Infusion Center Hematology/Oncology [address] [facility] [place] [address] BENLYSTA - 05/03/2025 2:00 PM EST Infusion Center Hematology/Oncology [address] [facility] [place] [address] BENLYSTA - documented as of this encounter Visit Diagnoses Diagnosis Other systemic lupus erythematosus with other organ involvement (HCC) documented in this encounter Care Teams Director Of Clinical Applications Relationship Specialty Start Date End Date Manuel Klein MD PCP - General Family Medicine 02/27/22 Manuel Klein MD Referring Family Medicine 02/12/22 Manuel Klein MD [address] [place] [address] Referring Family Medicine 07/06/24 documented as of this encounter
--- OUTSIDE RECORDS SUMMARY | 2025-02-24 11:49 | XMS_ITS | Encounter Summary ---
Author Organization [facility] Address [address] [place] [address] Care Team Providers Care Double Spindle Shaper Operator Name Role Phone Aime Davidson MD, Lui Nunez Primary Care Provid er Gay De La Torre(Historical) CHECKERING MACHINE OPERATOR.SUPERVISOR WOUND Primary Care Provider Unavailable Manuel Klein MD Unavailable [phone] Manuel Klein MD Primary Care Provider [phone] Manuel Klein MD Unavailable [phone] Source Comments In the event this information is protected by the Federal Confidentiality of Alcohol and Drug AbusePatient Records regulations: The Federal rules restrict any use of the information to criminally investigate or prosecute any alcohol or drug abuse patient.[facility] Encounter Details Date Type Department Care Team (Late st Contact Info) Description 12/31/2014 Patient Msg Medical Records [address] [place] [address] Provider, Ccf Prescription Social History Tobacco Use [...] Contact Info) Description 03/08/2025 2:00 PM EDT [facility] Center Hematology/Oncology [address] [place], [place] [address] [address] TOOTIELYSTA - 03/21/2025 9:00 AM EDT Office Visit [facility] Laboratory [facility] [place] [address] 4 week follow up IVIG - pt to see MASON for this appt per Fara 03/21/2025 9:20 AM EDT Visit (SP) Office Hematology/[place] [address] Jose Cho MD [address] [place] [address] [place] [address] 4 week follow up IVIG - pt to see MASON for this appt per Fara 03/21/2025 9:40 AM EDT Infusion Center Hematology/Oncology [address] [place] [place] [address] Gabbi, Chair [address] [place] [address] 4 week follow up IVIG - pt to see MASON for this appt per Fara 04/05/2025 2:00 PM EST Infusion Center Hematology/Oncology [address] [facility] [place] [address] BENLYSTA - 05/03/2025 2:00 PM EST Infusion Center Hematology/Oncology [address] [facility] [place] [address] BENLYSTA - documented as of this encounter Visit Diagnoses Not on filedocumented in this encounter Care Teams Double Spindle Shaper Operator Relationship Specialty Start Date End Date Lui Salomon Jr., MD PCP - General Internal Medicine 05/31/14 07/08/20 Gay De La Torre(Historical), CHECKERING MACHINE OPERATOR.SUPERVISOR WOUND PCP - General Family Medicine 10/24/21 02/26/22 Manuel Klein MD PCP - General Family Medicine 02/27/22 Manuel Klein MD Referring Family Medicine 02/12/22 Manuel Klein MD [address] [place] [address] Referring Family Medicine 07/06/24 documented as of this encounter
--- OUTSIDE RECORDS SUMMARY | 2025-02-24 11:49 | XMS_ITS | Encounter Summary ---
Author Organization [facility] Address [address] [place] [address] Care Team Providers Care Biological Inspector Name Role Phone Manuel Klein MD Unavailable [phone] Manuel Klein MD Primary Care Provider +-4 Manuel Klein MD Unavailable [phone] Source Comments In the event this information is protected by the Federal Confidentiality of Alcohol and Drug AbusePatient Records regulations: The Federal rules restrict any use of the information to criminally investigate or prosecute any alcohol or drug abuse patient.[facility] Encounter Details Date Type Department Care Team (Late st Contact Info) Description 02/21/2025 Get Medical Advice Hematology/Oncology [address] [place] [address] [place] [address] Provider, Ccf Blood work Social History Tobacco Use Types [...] lower risk 4 09/24/2022 Data from: https://www.neighborhoodatlas.medicine.[facility]/. Last address used for calculation [address] 09/24/2022 Comments No Sex and Gender [...] Contact Info) Description 03/08/2025 2:00 PM EDT [facility] Hematology/Oncology [address] [place] [address] BENLYSTA - 03/21/2025 9:00 AM EDT Office Visit [facility] [address] [place] [address] 4 week follow up IVIG - pt to see MASON for this appt per [facility]ara 03/21/2025 9:20 AM EDT Visit (SP) Office Hematology/Oncology [address] [place] [address] Jose Cho MD [address] [place] [address] 4 week follow up IVIG - pt to see MASON for this appt per Fara 03/21/2025 9:40 AM EDT Infusion Center Hematology/Oncology [address] [place] [address] Gabbi, Chair [address] [place] [address] 4 week follow up IVIG - pt to see MASON for this appt per [facility] 04/05/2025 2:00 PM EST Infusion Center Hematology/Oncology [address] [place] [address] [place] [address] BENLYSTA - 05/03/2025 2:00 PM [facility] Infusion Center Hematology/Oncology [address] [place] [address] [place] [address] BENLYSTA - documented as of this encounter Visit Diagnoses Not on filedocumented in this encounter Care Teams Biological Inspector Relationship Specialty Start Date End Date Manuel Klein MD PCP - General Family Medicine 02/27/22 Manuel Klein MD Referring Family Medicine 02/12/22 Manuel Klein MD [address] [place] [address] Referring Family Medicine 07/06/24 documented as of this encounter
--- OUTSIDE RECORDS SUMMARY | 2025-02-24 11:49 | XMS_ITS | Encounter Summary ---
Author Organization [facility] Address [address] [place] [address] Care Team Providers Care Documentation Designer Name Role Phone Manuel Klein MD Unavailable [phone] Manuel Klein MD Primary Care Provider +-4 Manuel Klein MD Unavailable [phone] Source Comments In the event this information is protected by the Federal Confidentiality of Alcohol and Drug AbusePatient Records regulations: The Federal rules restrict any use of the information to criminally investigate or prosecute any alcohol or drug abuse patient.[facility] Encounter Details Date Type Department Care Team (Late st Contact Info) Description 10/15/2022 Get Medical Advice Allergy [address] [place] [phone] Misty Nelson MD [address] [place] [address] Vaccine Social History Tobacco Use Types [...] is lower risk 4 09/24/2022 Data from: https://www.neighborhoodatlas.medicine.[facility]/. Last address used for calculation [address] 09/24/2022 Comments No Sex and Gender [...] EDT [facility] Hematology/Oncology [facility] [place] [address] BENLYSTA - 03/21/2025 9:00 AM EDT Office Visit [facility] [place] [address] 4 week follow up IVIG - pt to see MASON for this appt per [facility] 03/21/2025 9:20 AM EDT Visit (SP) Office Hematology/Oncology [address] [place] [address] Jose Cho MD [address] [place] [address] 4 week follow up IVIG - pt to see MASON for this appt per [facility] 03/21/2025 9:40 AM EDT Infusion Center Hematology/Oncology [address] [place] [address] Gabbi, Chair [address] [place] [address] 4 week follow up IVIG - pt to see MASON for this appt per [facility] 04/05/2025 2:00 PM EST Infusion Center Hematology/Oncology [address] [place] [address] BENLYSTA - 05/03/2025 2:00 PM EST Infusion Center Hematology/Oncology [address] [place] [address] BENLYSTA - documented as of this encounter Visit Diagnoses Not on filedocumented in this encounter Care Teams Documentation Designer Relationship Specialty Start Date End Date Manuel Klein MD PCP - General Family Medicine 02/27/22 Manuel Klein MD Referring Family Medicine 02/12/22 Manuel Klein MD [address] [place] [address] Referring Family Medicine 07/06/24 documented as of this encounter
--- OUTSIDE RECORDS SUMMARY | 2025-02-24 11:49 | XMS_ITS | Encounter Summary ---
Author Organization [facility] Address [facility] [place] [address] Care Team Providers Care Mobile Game Engineer Name Role Phone Manuel Klein MD Unavailable [phone] Manuel Klein MD Primary Care Provider +-4 Manuel Klein MD Unavailable [phone] Source Comments In the event this information is protected by the Federal Confidentiality of Alcohol and Drug AbusePatient Records regulations: The Federal rules restrict any use of the information to criminally investigate or prosecute any alcohol or drug abuse patient.[facility] Encounter Details Date Type Department Care Team (Late st Contact Info) Description 04/10/2023 Patient Msg Integrated Medicine [address] [place] [address] Christie Phan MD [address], [place] [address] Labs Social History Tobacco Use Types [...] lower risk 4 09/24/2022 Data from: https://www.neighborhoodatlas.medicine.[facility]/. Last address used for calculation [address] 09/24/2022 Comments No Sex and Gender [...] Info) Description 03/08/2025 2:00 PM EDT [facility] Hematology/Oncology [address] [place] [address] BENLYSTA - 03/21/2025 9:00 AM EDT Office Visit [facility] Laboratory [address] [place] [address] [place] [address] 4 week follow up IVIG - pt to see MASON for this appt per [facility] 03/21/2025 9:20 AM EDT Visit (SP) Office Hematology/Oncology [address] [place] [address] Jose Cho MD [address] [place] [address] 4 week follow up IVIG - pt to see MASON for this appt per [facility] 03/21/2025 9:40 AM EDT Infusion Center Hematology/Oncology [address] [place] [address] Gabbi, Chair [address] [place] [address] 4 week follow up IVIG - pt to see MASON for this appt per [facility] 04/05/2025 2:00 PM EST Infusion Center Hematology/Oncology [address] [facility] [place] [address] BENLYSTA - 05/03/2025 2:00 PM [facility] Infusion Center Hematology/Oncology [address] [place] [address] BENLYSTA - documented as of this encounter Visit Diagnoses Not on filedocumented in this encounter Care Teams Mobile Game Engineer Relationship Specialty Start Date End Date Manuel Klein MD PCP - General Family Medicine 02/27/22 Manuel Klein MD Referring Family Medicine 02/12/22 Manuel Klein MD [address] [place] [address] Referring Family Medicine 07/06/24 documented as of this encounter
--- OUTSIDE RECORDS SUMMARY | 2025-02-24 11:49 | XMS_ITS | Encounter Summary ---
Author Organization [facility] Address [facility] [place] [address] Care Team Providers Care Front Office Spec Name Role Phone Manuel Klein MD Unavailable [phone] Manuel Klein MD Primary Care Provider +-4 Manuel Klein MD Unavailable [phone] Source Comments In the event this information is protected by the Federal Confidentiality of Alcohol and Drug AbusePatient Records regulations: The Federal rules restrict any use of the information to criminally investigate or prosecute any alcohol or drug abuse patient.[facility] Encounter Details Date Type Department Care Team (Late st Contact Info) Description 10/29/2022 Patient Msg Integrated Medicine [address] [place] [address] Christie Phan MD [address], [place] [address] Trulicity Social History Tobacco Use [...] is lower risk 4 09/24/2022 Data from: https://www.neighborhoodatlas.medicine.[facility]/. Last address used for calculation [address] 09/24/2022 Comments No Sex and Gender [...] Contact Info) Description 03/08/2025 2:00 PM EDT [facility] Center Hematology/Oncology [address] [place] [address] BENLYSTA - 03/21/2025 9:00 AM EDT Office Visit [facility] Laboratory [facility] [place] [address] 4 week follow up IVIG - pt to see MASON for this appt per [facility] 03/21/2025 9:20 AM EDT Visit (SP) Office Hematology/Oncology [address] [facility] [place] [address] Jose Cho MD [address] [facility] [place] [address] 4 week follow up IVIG - pt to see MASON for this appt per [facility] 03/21/2025 9:40 AM EDT Infusion Center Hematology/Oncology [address] [facility] [place] [address] Gabbi, Chair 4 [address] [facility] [place] [address] 4 week follow up IVIG - pt to see MASON for this appt per [facility] 04/05/2025 2:00 PM EST Infusion Center Hematology/Oncology [address] [facility] [place] [address] BENLYSTA - 05/03/2025 2:00 PM EST Infusion Center Hematology/Oncology [address] [facility] [place] [address] BENLYSTA - documented as of this encounter Visit Diagnoses Not on filedocumented in this encounter Care Teams Front Office Spec Relationship Specialty Start Date End Date Manuel Klein MD PCP - General Family Medicine 02/27/22 Manuel Klein MD Referring Family Medicine 02/12/22 Manuel Klein MD [address] [facility] [place] [address] Referring Family Medicine 07/06/24 documented as of this encounter
--- OUTSIDE RECORDS SUMMARY | 2025-02-24 11:49 | XMS_ITS | Encounter Summary ---
Author Organization [facility] Address [address] [place] [address] Care Team Providers Care Concrete Buster Operator Name Role Phone Manuel Klein MD Unavailable [phone] Manuel Klein MD Primary Care Provider +-4 Manuel Klein MD Unavailable [phone] Source Comments In the event this information is protected by the Federal Confidentiality of Alcohol and Drug AbusePatient Records regulations: The Federal rules restrict any use of the information to criminally investigate or prosecute any alcohol or drug abuse patient.[facility] Encounter Details Date Type Department Care Team (Late st Contact Info) Description 05/11/2023 Get Medical Advice Rheumatology [address] [place], [place] [id number] Sandra Park MD [address] [place] [address] Flair Social History Tobacco Use [...] risk 4 09/24/2022 Data from: https://www.neighborhoodatlas.medicine.[facility]/. Last address used for calculation [address] 09/24/2022 Comments No Sex and Gender [...] Department VIDEO SPEC EST 08/12/2023 9:00 AM [facility] MEG Last Ophthalmology Check for [...] 2:00 PM EDT Infusion Center Hematology/Oncology [address] [facility] [place] [place] [address] BENLYSTA - 03/21/2025 9:00 AM EDT Office Visit [facility] [address] [place] [address] 4 week follow up IVIG - pt to see MASON for this appt per [facility] 03/21/2025 9:20 AM EDT Visit (SP) Office Hematology/Oncology [address] [facility] [place] [place] [address] Jose Cho MD [address] [facility] [place] [place] [address] 4 week follow up IVIG - pt to see MASON for this appt per [facility] 03/21/2025 9:40 AM EDT Infusion Center Hematology/Oncology [address] [facility] [place] [place] [address] Morris, Chair 4 [address] [facility] [place] [place] [address] 4 week follow up IVIG - pt to see MASON for this appt per [facility] 04/05/2025 2:00 PM EST Infusion Center Hematology/Oncology [address] [facility] [place] [place] [address] BENLYSTA - 05/03/2025 2:00 PM EST Infusion Center Hematology/Oncology [address] [facility] [place] [place] [address] BENLYSTA - documented as of this encounter Visit Diagnoses Diagnosis Other systemic lupus erythematosus with other organ involvement (HCC) documented in this encounter Care Teams Concrete Buster Operator Relationship Specialty Start Date End Date Manuel Klein MD PCP - General Family Medicine 02/27/22 Manuel Klein MD Referring Family Medicine 02/12/22 Manuel Klein MD [address] [place] [address] Referring Family Medicine 07/06/24 documented as of this encounter
--- OUTSIDE RECORDS SUMMARY | 2025-02-24 11:49 | XMS_ITS | Encounter Summary ---
Author Organization [facility] Address [address] [place] [address] Care Team Providers Care Panel Flow Machine Operator Name Role Phone Aime Davidson MD, Lui Nunez Primary Care Provid er Gay De La Torre(Historical) DIE PRESSER.ROOMING HOUSE OPERATOR Primary Care Provider Unavailable Manuel Klein MD Unavailable [phone] Manuel Klein MD Primary Care Provider [phone] Manuel Klein MD Unavailable [phone] Source Comments In the event this information is protected by the Federal Confidentiality of Alcohol and Drug AbusePatient Records regulations: The Federal rules restrict any use of the information to criminally investigate or prosecute any alcohol or drug abuse patient.[facility] Encounter Details Date Type Department Care Team (Late st Contact Info) Description 12/31/2014 Patient Msg Medical Records [address] [place] [address] Provider, Ccf RE:Infection Social History Tobacco Use [...] Contact Info) Description 03/08/2025 2:00 PM EDT [facility] Center Hematology/Oncology [address] [place] [address] [place] [address] BLANKATA - 03/21/2025 9:00 AM EDT Office Visit [facility] Laboratory [address] [place] [address] [place] [address] 4 week follow up IVIG - pt to see MASON for this appt per [facility] 03/21/2025 9:20 AM EDT Visit (SP) Office Hematology/Oncology [address] [place] [address] Jose Cho MD [address] [place] [address] [place] [address] 4 week follow up IVIG - pt to see MASON for this appt per [facility] 03/21/2025 9:40 AM EDT Infusion Center Hematology/Oncology [address] [facility] [place] [address] Gabbi, Chair [address] [place] [address] 4 week follow up IVIG - pt to see MASON for this appt per [facility] 04/05/2025 2:00 PM EST Infusion Center Hematology/Oncology [address] [place] [address] BENLYSTA - 05/03/2025 2:00 PM EST Infusion Center Hematology/Oncology [address] [place] [address] BENLYSTA - documented as of this encounter Visit Diagnoses Not on filedocumented in this encounter Care Teams Panel Flow Machine Operator Relationship Specialty Start Date End Date Lui Salomon Jr., MD PCP - General Internal Medicine 05/31/14 07/08/20 Gay De La Torre(Historical), DIE PRESSER.ROOMING HOUSE OPERATOR PCP - General Family Medicine 10/24/21 02/26/22 Manuel Klein MD PCP - General Family Medicine 02/27/22 Manuel Klein MD Referring Family Medicine 02/12/22 Manuel Klein MD [facility] [place] [address] Referring Family Medicine 07/06/24 documented as of this encounter
--- OUTSIDE RECORDS SUMMARY | 2025-02-24 11:50 | XMS_ITS | Encounter Summary ---
Author Organization [facility] Address [address] [facility] [place] [address] Care Team Providers Care Facilities Plant Engineer Name Role Phone House, Charles Culver MD Primary Care Provider Gay De La Torre MD Unavailable [phone] Encounter Details Date Type Department Care Team (Late Contact Info) Description 04/07/2024 Clinisync Result Encounter [facility] External Department Unsolicited Oly Parnell PA [address] [place] [address] [place] [address] Social History Tobacco Use Types [...] AM EDT Consult [facility] [address] [facility] [address] [place] [address] Terence Blum MD [address] [facility] 150 [place] [address] 03/19/2025 10:20 AM EDT Office Visit [facility] [address] [facility] [address] [place] [address] Mary Grace Mejias MD [address] [facility] 130 [place] [address] 07/25/2025 11:00 AM EST Office Visit [facility] [address] [place] [address] Cynthia English MD [address] [place] [address] documented as of this encounter Procedures Procedure Name Priority Date/Time Associated Diagnosis Comments US PELVIS W/ TRANSVAGINAL 04/07/2024 4:48 AM EST documented in this encounter Results * US PELVIS W/ TRANSVAGINAL (04/07/2024 4:48 AM EST) Anatomical Region Laterality Modality Other 04/07/2024 4:48 AM EST Narrative 04/07/2024 4:51 AM EST [address] [address] Ultrasound Report Signed Patient: JONES PANIAGUA MR#: [id number] : 1980 Acct:[id number] Age/Sex: 43 / F ADM Date: 04/06/24 Loc: LAB Attending Dr: Oly Parnell Ordering Physician: Oly Panrell Date of Service: 04/06/24 Procedure(s): US pelvis w/ transvaginal Accession Number(s): [id number] cc: GAY Mcpherson [address] [address] Patient Name: JONES PANIAGUA MRN: [id number] date: 1980 Sex: F Assigned Patient Location: LAB Current Patient Location: Accession/Order Number: [id number] Exam Date: 04/06/2024 15:45 Report Date: 04/07/2024 [...] Signed By: 04/07/24 0451 DD/ 0448 TD/TT: Credit Negotiator: Procedure Note Radiology, Radiologist, MD - 04/07/2024 [place] [address] Ultrasound Report Signed Patient: JONES PANIAGUA BMR#: [id number] : 1980Acct:[id number] Age/Sex: 43 / FADM Date: 04/06/24 Loc: LAB Attending Dr: Oly Parnell Ordering Physician: Oly Parnell Date of Service: 04/06/24 Procedure(s): US pelvis w/ transvaginal Accession Number(s): [id number] cc: GAY Mcpherson The [address] [address] Patient Name: JONES PANIAGUA MRN: [id number] date: 1980 Sex: F Assigned Patient Location: LAB Current Patient Location: Accession/Order Number: [id number] Exam Date: 04/06/2024 15:45 Report Date: 04/07/2024 [...] YUSUF Date: 04/07/2024 04:48 Dictated By: Vito uYsuf M.D. Signed By:04/07/24 045 DD/ TD/TT: Credit Negotiator: us [facility] Final Result documented in this encounter Visit Diagnoses Not on filedocumented in this encounter Care Teams Facilities Plant Engineer Relationship Specialty Start Date End Date Charles Nicole MD PCP - General Family Medicine 02/09/24 07/17/24 Gay De La Torre MD [address] [place] [address] Referring Physician Family Medicine 07/18/24 documented as of this encounter
--- OUTSIDE RECORDS SUMMARY | 2025-02-24 11:50 | XMS_ITS | Encounter Summary ---
Author Organization [facility] Address [address] [facility] [place] [address] Care Team Providers Care Prints And Drawings Curator Name Role Phone House, Charles Culver MD Primary Care Provider [phone] Gay De La Torre MD Unavailable [phone] Encounter Details Date Type Department Care Team (Late Contact Info) Description 06/14/2024 Clinisync Result Encounter [facility] External Department Unsolicited Oly Plascencia PA [address] [place] [address] [place] [address] Social History Tobacco Use Types [...] AM EDT Consult [facility] [address] [facility] 150 [place] [address] Terence Blum MD [address] [facility] 150 [place] [address] 03/19/2025 10:20 AM EDT Office Visit [facility] [address] [facility] [address] [place] [address] Mary Grace Mejias MD [address] [facility] [address] [place] [address] 07/25/2025 11:00 AM EST Office Visit [facility] [address] [place] [address] Cynthia English MD [address] [place] [address] documented as of this encounter Procedures Procedure Name Priority Date/Time Associated Diagnosis Comments MM TOMOSYNTHESIS DIAGNOSTIC LT 06/14/2024 4:14 PM EST documented in this encounter Results * MM TOMOSYNTHESIS DIAGNOSTIC LT (06/14/2024 4:14 PM EST) Anatomical Region Laterality Modality Other 06/14/2024 4:14 PM EST Narrative 06/14/2024 4:15 PM EST [address] [address] Mammography Report Signed Patient: JONES PANIAGUA MR#: [id number] : 1980 Acct:[id number] Age/Sex: 43 / F ADM Date: 06/14/24 Loc: MAMMO Attending Dr: Oly Plascencia Ordering Physician: Oly Plascencia Results: Date of Service: 06/14/24 Follow Up: Procedure(s): MM tomosynthesis diagnostic LT Accession Number(s): [id number] cc: Oly Plascencia; GAY DE LA TORRE Patient Name: JONES PANIAGUA MR#: [id number] : 1980 Exam Date: 06/14/2024 Ordering Doctor: [...] 56. LOCATION: [facility] BREAST COMPOSITION: There are scattered areas [...] By: Vito Yusuf M.D. Signed By: 06/14/24 1615 DD/ 1614 TD/TT: Electric Fan Assembler: Procedure Note Radiology, Radiologist, MD - 06/14/2024 [place] [address] Mammography Report Signed Patient: JONES PANIAGUA BMR#: [id number] : 1980Acct:[id number] Age/Sex: 43 / FADM Date: 06/14/24 Loc: MAMMO Attending Dr: Oly Plascencia Ordering Physician: Oly PlascenciaResults: Date of Service: 06/14/24Follow Up: Procedure(s): MM tomosynthesis diagnostic LT Accession Number(s): [id number] cc: Oly Plascencia; GAY DE LA TORRE Patient Name: JONES PANIAGUA MR#: [id number] : 1980 Exam Date: 06/14/2024 Ordering Doctor: KELVIN Plascencia . RADIOLOGY REPORT PROCEDURE: MM TOMOSYNTHESIS DIAGNOSTIC LT COMPARISON: US BREAST LT LIMITED, 06/14/2024. MM TOMOSYNTHESISDIAGNOSTIC BI, 04/06/2024. MM TOMOSYNTHESIS SCREENING BI, 09/23/2023. MG MAMM [id number] MARK CAD, 09/01/2022. INDICATIONS: Left Axilla Nodule [...] 56. LOCATION: [facility] BREAST COMPOSITION: There are scattered areas [...] 16:14 Dictated By: Vito Yusuf M.D. Signed By:06/14/245 DD/ 13 TD/TT: Electric Fan Assembler: us Oly [facility] Final Result documented in this encounter Visit Diagnoses Not on filedocumented in this encounter Care Teams Prints And Drawings Curator Relationship Specialty Start Date End Date Charles Nicole MD PCP - General Family Medicine 02/09/24 07/17/24 Gay De La Torre MD [address] [place] [address] Referring Physician Family Medicine 07/18/24 documented as of this encounter
--- OUTSIDE RECORDS SUMMARY | 2025-02-24 11:50 | XMS_ITS | Encounter Summary ---
Author Organization [facility] Address [address] [place] [address] Care Team Providers Care Rating Clerk Name Role Phone House, Charles Culver MD Primary Care Provider [phone] Gay De La Torre MD Unavailable [phone] Encounter Details Date Type Department Care Team (Late Contact Info) Description 04/07/2024 Clinisync Result Encounter NOMS External Department Unsolicited Luan Valdivia, DO [address] [facility] Liliam [place], [place] [address] Social History Tobacco Use Types Packs/Day Years [...] AM EDT Consult [facility] [address] [facility] 150 [place] [address] Terence Blum MD 703 [facility] 150 [place] [address] 03/19/2025 10:20 AM EDT Office Visit [facility] [address] [facility] [address] [place] [address] Mary Grace Mejias MD [address] [facility] 130 [place] [address] 07/25/2025 11:00 AM EST Office Visit [facility] [address] [place] [address] Cynthia English MD [address] [place] [address] documented as of this encounter Procedures Procedure Name Priority Date/Time Associated Diagnosis Comments MM TOMOSYNTHESIS DIAGNOSTIC BI 04/07/2024 8:40 AM EST documented in this encounter Results * MM TOMOSYNTHESIS DIAGNOSTIC BI (04/07/2024 8:40 AM EST) Anatomical Region Laterality Modality Other 04/07/2024 8:40 AM EST Narrative 04/07/2024 8:41 AM EST [address] [address] Mammography Report Signed Patient: JONES PANIAGUA MR#: [id number] : 1980 Acct:[id number] Age/Sex: 43 / F ADM Date: 04/06/24 Loc: US Attending Dr: Luan Valdivia D.O. Ordering Physician: Luan Valdivia D.O. Results: Date of Service: 04/06/24 Follow Up: Procedure(s): MM tomosynthesis diagnostic BI Accession Number(s): [id number] cc: GAY DE LA TORRE ; Luan Valdivia D.O. Patient Name: JONES PANIAGUA MR#: [id number] : 1980 Exam Date: 04/06/2024 Ordering Doctor: [...] cancer at age 56. LOCATION: The [facility] BREAST COMPOSITION: There are scattered areas [...] Signed By: 04/07/24 0841 DD/ 0840 TD/TT: Visiting Nurse: Procedure Note Radiology, Radiologist, MD - 04/07/2024 [place] [address] Mammography Report Signed Patient: JONES PANIAGUA BMR#: [id number] : 1980Acct:[id number] Age/Sex: 43 / FADM Date: 04/06/24 Loc: US Attending Dr: Luan Valdivia D.O. Ordering Physician: Luan Valdivia D.O.Results: Date of Service: 04/06/24Follow Up: Procedure(s): MM tomosynthesis diagnostic BI Accession Number(s): [id number] cc: GAY DE LA TORRE ; Luan Valdivia D.O. Patient Name: JONES PANIAGUA MR#: [id number] : 1980 Exam Date: 04/06/2024 Ordering Doctor: DR Luan Valdivia . RADIOLOGY REPORT PROCEDURE: MM TOMOSYNTHESIS DIAGNOSTIC BI, 04/06/2024, 15:20 US BREAST BI LIMITED, 04/06/2024, 15:37 COMPARISON: MM TOMOSYNTHESIS SCREENING BI, 09/23/2023. MG MAMM [id number] MARK CAD, 09/01/2022. MG MAMM SCREEN 3D [...] cancer at age 56. LOCATION: The [facility] BREAST COMPOSITION: There are scattered areas [...] 08:40 Dictated By: Vito Yusuf M.D. Signed By:04/07/2441 DD/ TD/TT: Visiting Nurse: Luan Valdivia DO [facility] Final Result documented in this encounter Visit Diagnoses Not on filedocumented in this encounter Care Teams Rating Clerk Relationship Specialty Start Date End Date Charles Nicole MD PCP - General Family Medicine 02/09/24 07/17/24 Gay De La Torre MD [address] [place], [place] [id number] Referring Physician Family Medicine 07/18/24 documented as of this encounter
--- OUTSIDE RECORDS SUMMARY | 2025-02-24 11:50 | XMS_ITS | Encounter Summary ---
Author Organization [facility] Address [address] [facility] [place] [address] Care Team Providers Care Asset Protection Greeter Name Role Phone House, Charles Culver MD Primary Care Provider [phone] Gay De La Torre MD Unavailable Encounter Details Date Type Department Care Team (Late Contact Info) Description 06/14/2024 Clinisync Result Encounter [facility] External Department Unsolicited Oly Plascencia PA [address] [place] [address] [place] [address] Social History Tobacco Use Types [...] AM EDT Consult [facility] 703 [facility] 150 [place] [address] Terence Blum MD 703 [facility] 150 [place] [address] 03/19/2025 10:20 AM EDT Office Visit [facility] [address] [facility] 900 [place] [address] Mary Grace Mejias MD [address] [facility] 130 [place] [address] 07/25/2025 11:00 AM EST Office Visit [facility] [address] [place] [address] Cynthia English MD [address] [place] [address] documented as of this encounter Procedures Procedure Name Priority Date/Time Associated Diagnosis Comments US BREAST LT LIMITED 06/14/2024 3:04 PM EST documented in this encounter Results * US BREAST LT LIMITED (06/14/2024 3:04 PM EST) Anatomical Region Laterality Modality Other 06/14/2024 3:04 PM EST Narrative 06/14/2024 3:05 PM EST [address] [address] Ultrasound Report Signed Patient: JONES PANIAGUA MR#: [id number] : 1980 Acct:[id number] Age/Sex: 43 / F ADM Date: 06/14/24 Loc: MAMMO Attending Dr: Oly Plascencia Ordering Physician: Oly Plascencia Date of Service: 06/14/24 Procedure(s): US breast LT limited Accession Number(s): [id number] cc: Oly Plascencia; GAY DE LA TORRE Patient Name: JONES PANIAGUA MR#: [id number] : 1980 Exam Date: 06/14/2024 Ordering Doctor: [...] Signed By: 06/14/24 1505 DD/ 1504 TD/TT: Crusher Feeder: Procedure Note Radiology, Radiologist, MD - 06/14/2024 [place] [address] Ultrasound Report Signed Patient: JONES PANIAGUA BMR#: [id number] : 1980Acct:[id number] Age/Sex: 43 / FADM Date: 06/14/24 Loc: MAMMO Attending Dr: Oly Plascencia Ordering Physician: Oly Plascencia Date of Service: 06/14/24 Procedure(s): US breast LT limited Accession Number(s): [id number] cc: Oly Plascencia; GAY DE LA TORRE Patient Name: JONES PANIAGUA MR#: [id number] : 1980 Exam Date: 06/14/2024 Ordering Doctor: [...] M.D. Signed By:06/14/24 1505 DD/ 1504 TD/TT: Crusher Feeder: us Oly [facility] Final Result documented in this encounter Visit Diagnoses Not on filedocumented in this encounter Care Teams Asset Protection Greeter Relationship Specialty Start Date End Date Charles Nicole MD PCP - General Family Medicine 02/09/24 07/17/24 Gay De La Torre MD [address] [place] [address] Referring Physician Family Medicine 07/18/24 documented as of this encounter
--- OUTSIDE RECORDS SUMMARY | 2025-02-24 11:50 | XMS_ITS | Encounter Summary ---
Author Organization [facility] Address [facility]9 [place] [address] Care Team Providers Care Marine Cargo Inspector Name Role Phone Manuel Klein MD Unavailable [phone] Manuel Klein MD Primary Care Provider [phone] Manuel Klein MD Unavailable [phone] Source Comments In the event this [...] Advice Infectious Disease [address] [place] [address] Tiffany Head DO [address] [place] [address] Appointment Social History Tobacco Use Types [...] lower risk 4 09/24/2022 Data from: https://www.neighborhoodatlas.medicine.[facility]/. Last address used for calculation [address] 09/24/2022 Comments No Sex and Gender [...] Info) Description 03/08/2025 2:00 PM EDT [facility] Hematology/Oncology [address] [address] B[place] - 03/21/2025 9:00 AM EDT Office Visit [facility] [address] [place] [address] [place] [address] 4 week follow up IVIG - pt to see [facility] for this appt per [facility] 03/21/2025 9:20 AM EDT Visit (SP) Office Hematology/Oncology [address] [address] Jose Cho MD [address] [address] 4 week follow up IVIG - pt to see [facility] for this appt per [facility] 03/21/2025 9:40 AM EDT Infusion Center Hematology/Oncology [address] [address] Gabbi, Chair [address] [address] 4 week follow up IVIG - pt to see [facility] for this appt per [facility] 04/05/2025 2:00 PM EST Infusion Center Hematology/Oncology [address] [address] [place] - 05/03/2025 2:00 PM EST Infusion Center Hematology/Oncology [address] [address] [place] - documented as of this encounter Visit Diagnoses Not on filedocumented in this encounter Care Teams Marine Cargo Inspector Relationship Specialty Start Date End Date Manuel Klein MD PCP - General Family Medicine 02/27/22 Manuel Klein MD Referring Family Medicine 02/12/22 Manuel Klein MD [address] [place] [address] Referring Family Medicine 07/06/24 documented as of this encounter
--- OUTSIDE RECORDS SUMMARY | 2025-02-24 11:50 | XMS_ITS | Encounter Summary ---
Author Organization [facility] Address [address] [facility] [place] [address] Care Team Providers Care Centrifugal Separator Name Role Phone House, Charles Culver MD Primary Care Provider Gay De La Torre MD Unavailable [phone] Encounter Details Date Type Department Care Team (Late Contact Info) Description 04/26/2024 Clinisync Result Encounter NOMS External Department Unsolicited Judy Arciniega MD [address], [address] [address] Social History Tobacco Use Types Packs/Day Years [...] [facility] [address] [facility] 150 [place] [address] Terence Blum MD 703 [facility] 150 [place] [address] 03/19/2025 10:20 AM EDT Office Visit [facility] [address] [facility] 900 [place] [address] Mary Grace Mejias MD [address] [facility] 130 [place] [address] 07/25/2025 11:00 AM EST Office Visit [facility] [address] [place] [address] Cynthia English MD [address] [place] [address] documented as of this encounter Procedures Procedure Name Priority Date/Time Associated Diagnosis Comments SEGMENTAL BLOOD PRESSURE 04/26/2024 12:29 PM EST documented in this encounter Results * SEGMENTAL BLOOD PRESSURE (04/26/2024 12:29 PM EST) Anatomical Region Laterality Modality Radiographic Melody ging 04/26/2024 12:2 9 PM EST Narrative 04/26/2024 12:31 PM EST [address] [address] Vein Report Signed Patient: JONES PANIAGUA MR#: [id number] : 1980 Acct:[id number] Age/Sex: 43 / F ADM Date: 04/26/24 Loc: VC Attending Dr: Judy Arciniega M.D. Ordering Physician: Judy Arciniega M.D. Date of Service: 04/26/24 Procedure(s): VC SEGMENTAL PRESSURES Accession Number(s): [id number] cc: GAY DE LA TORRE ; Judy Arciniega M.D. [address] [address] Patient Name: JONES PANIAGUA MRN: [id number] date: 1980 Sex: F Assigned Patient Location: VC Current Patient Location: Accession/Order Number: [id number] Exam Date: 04/26/2024 10:45 Report Date: 04/26/2024 12:29 At the request of: UJDY ARCINIEGA Procedure: VC SEGMENTAL PRESSURES EXAM: VC SEGMENTAL PRESSURES HISTORY: I73.9 COMPARISON: None. FINDINGS: Segmental pressures presented as follows (right, left) in mmHg. Brachial: 102, 109 Upper thigh: 175, 183 Lower thigh: 166, 177 Calf: 140, 143 DPA: 123, 148 SERVICE MEMBER: 139, 155 1st Toe: 141, 143 SAMUEL: [...] Signed By: 04/26/24 1231 DD/ 1229 TD/TT: Co Founder And Ceo: Procedure Note Radiology, Radiologist, MD - 04/26/2024 [place] [address] Vein Report Signed Patient: JONES PANIAGUA BMR#: [id number] : 1980Acct:[id number] Age/Sex: 43 / FADM Date: 04/26/24 Loc: Attending Dr: Judy Arciniega M.D. Ordering Physician: Judy Arciniega M.D. Date of Service: 04/26/24 Procedure(s): VC SEGMENTAL PRESSURES Accession Number(s): [id number] cc: GAY DE LA TORRE ; Judy Arciniega M.D. The [place] [address] Patient Name: JONES PANIAGUA MRN: [id number] date: 1980 Sex: F Assigned Patient Location: Current Patient Location: VC Accession/Order Number: [id number] Exam Date: 04/26/2024 10:45 Report Date: 04/26/2024 12:29 At the request of: JUDY ARCINIEGA Procedure: VC SEGMENTAL PRESSURES EXAM: VC SEGMENTAL PRESSURES HISTORY: I73.9 COMPARISON: None. FINDINGS: Segmental pressures presented as follows (right, left) in mmHg. Brachial: 102, 109 Upper thigh: 175, 183 Lower thigh: 166, 177 Calf: 140, 143 DPA: 123, 148 SERVICE MEMBER: 139, 155 1st Toe: 141, 143 SAMUEL: [...] M.D. Signed By:04/26/24 1231 DD/ 1229 TD/TT: Co Founder And Ceo: us Judy Arciniega MD IMG XR PROCEDURES Final Resu lt documented in this encounter Visit Diagnoses Not on filedocumented in this encounter Care Teams Centrifugal Separator Relationship Specialty Start Date End Date Charles Nicole MD PCP - General Family Medicine 02/09/24 07/17/24 Gay De La Torre MD [address] [place], [place] [address] Referring Physician Family Medicine 07/18/24 documented as of this encounter
--- OUTSIDE RECORDS SUMMARY | 2025-02-24 11:50 | XMS_ITS | Encounter Summary ---
Author Organization [facility] Address [address] [facility] [place] [address] Care Team Providers Care Musical Instrument Mechanic Name Role Phone House, Charles Culver MD Primary Care Provider [phone] Gay De La Torre MD Unavailable [phone] Encounter Details Date Type Department Care Team (Late Contact Info) Description 06/20/2024 Orders Only [facility] [address] [place] [address] Sabi Barker LPN [address] [employer] [place] [phone] Social History Tobacco Use Types Packs/Day Years [...] EDT Consult [facility] [address] [phone] Terence Blum MD 703 [facility] 150 [place] [address] 03/19/2025 10:20 AM EDT Office Visit [facility] [address] [place] [address] Mary Grace Mejias MD [address] [facility] [address] [place] [address] 07/25/2025 11:00 AM EST Office Visit [facility] [address] [place] [address] Cynthia English MD [address] [place] [address] documented as of this encounter Procedures Procedure Name Priority Date/Time Associated Diagnosis Comments PAP SMEAR Routine 06/06/2024 12:00 AM EST documented in this encounter Results * Pap Smear (06/06/2024 12:00 AM EST) Swab Cervical swab / Unknown Oly [facility] ORDERABLES Final Re sult EXTERNAL LAB documented in this encounter Visit Diagnoses Not on filedocumented in this encounter Care Teams Musical Instrument Mechanic Relationship Specialty Start Date End Date Charles Nicole MD PCP - General Family Medicine 02/09/24 07/17/24 Gay De La Torre MD [facility] [place] [address] Referring Physician Family Medicine 07/18/24 documented as of this encounter
--- OUTSIDE RECORDS SUMMARY | 2025-02-24 11:50 | XMS_ITS | Encounter Summary ---
Author Organization [facility] Address [address] [facility] [address] [place] [address] Care Team Providers Care Women'S Studies Lecturer Name Role Phone House, Charles Culver MD Primary Care Provider Gay De La Torre MD Unavailable [phone] Encounter Details Date Type Department Care Team (Late Contact Info) Description 04/07/2024 Clinisync Result Encounter NOMS External Department Unsolicited Luan Valdivia, DO 102 [facility] [place]am [place], [place] [phone] Social History Tobacco Use Types Packs/Day Years [...] [facility] [address] [facility] 150 [place] [address] Terence Blum MD 703 [facility] 150 [place] [address] 03/19/2025 10:20 AM EDT Office Visit [facility] [address] [place] [address] Mary Grace Mejias MD [address] [facility] 130 [place] [address] 07/25/2025 11:00 AM EST Office Visit [facility] [address] [place] [address] Cynthia English MD [address] [place] [address] documented as of this encounter Procedures Procedure Name Priority Date/Time Associated Diagnosis Comments US BREAST BI LIMITED 04/07/2024 8:40 AM EST documented in this encounter Results * US BREAST BI LIMITED (04/07/2024 8:40 AM EST) Anatomical Region Laterality Modality Other 04/07/2024 8:40 AM EST Narrative 04/07/2024 8:41 AM EST [address] [place] [address] [address] Ultrasound Report Signed Patient: JONES PANIAGUA MR#: [id number] : 1980 Acct:[id number] Age/Sex: 43 / F ADM Date: 04/06/24 Loc: US Attending Dr: Luan Valdivia D.O. Ordering Physician: Luan Valdivia D.O. Date of Service: 04/06/24 Procedure(s): US breast BI limited Accession Number(s): [id number] cc: GAY DE LA TORRE ; Luan Valdivia D.O. Patient Name: JONES PANIAGUA MR#: [id number] : 1980 Exam Date: 04/06/2024 Ordering Doctor: [...] at age 56. LOCATION: The [facility] BREAST COMPOSITION: There are scattered areas of [...] Signed By: 04/07/24 0841 DD/ 0840 TD/TT: Manager Of Internal Audit: Procedure Note Radiology, Radiologist, MD - 04/07/2024 [place] [address] Ultrasound Report Signed Patient: JONES PANIAGUA BMR#: [id number] : 1980Acct:[id number] Age/Sex: 43 / FADM Date: 04/06/24 Loc: US Attending Dr: Luan Valdivia D.O. Ordering Physician: Luan Valdivia D.O. Date of Service: 04/06/24 Procedure(s): US breast BI limited Accession Number(s): [id number] cc: GAY DE LA TORRE ; Luan Valdivia D.O. Patient Name: JONES PANIAGUA MR#: [id number] : 1980 Exam Date: 04/06/2024 Ordering Doctor: DR Luan Valdivia . RADIOLOGY REPORT PROCEDURE: MM TOMOSYNTHESIS DIAGNOSTIC BI, 04/06/2024, 15:20 US BREAST BI LIMITED, 04/06/2024, 15:37 COMPARISON: MM TOMOSYNTHESIS SCREENING BI, 09/23/2023. MG MAMM [id number] MARK CAD, 09/01/2022. MG MAMM SCREEN 3D [...] at age 56. LOCATION: The [facility] BREAST COMPOSITION: There are scattered areas of [...] Vito Yusuf M.D. Signed By:04/07/2441 DD/ TD/TT: Manager Of Internal Audit: Luan Valdivia DO [facility] Final Result documented in this encounter Visit Diagnoses Not on filedocumented in this encounter Care Teams Women'S Studies Lecturer Relationship Specialty Start Date End Date Charles Nicole MD PCP - General Family Medicine 02/09/24 07/17/24 Gay De La Torre MD [address] [place] [address] Referring Physician Family Medicine 07/18/24 documented as of this encounter
--- OUTSIDE RECORDS SUMMARY | 2025-02-24 11:50 | XMS_ITS | Encounter Summary ---
Author Organization [facility] Address [address] [place] [address] Care Team Providers Care Swimming Professor Name Role Phone Manuel Klein MD Unavailable [phone] Manuel Klein MD Primary Care Provider +-4 Manuel Klein MD Unavailable [phone] Source Comments In the event this information is protected by the Federal Confidentiality of Alcohol and Drug AbusePatient Records regulations: The Federal rules restrict any use of the information to criminally investigate or prosecute any alcohol or drug abuse patient.[facility] Encounter Details Date Type Department Care Team (Late st Contact Info) Description 07/06/2024 Patient Msg Referring Physician [address] [place] [address] Provider, [facility] Appointment Social History Tobacco Use [...] is lower risk 4 09/24/2022 Data from: https://www.neighborhoodatlas.[facility].edu/. Last address used for calculation [address] 09/24/2022 Comments No Sex and Gender [...] Yes 12/25/2014 11:14 AM EDT Chichi De eJsus * Because of a physical, mental, or [...] Info) Description 03/08/2025 2:00 PM EDT [facility] Hematology/Oncology [address] [place] [address] [place] - 03/21/2025 9:00 AM EDT Office Visit [facility] [place] [address] 4 week follow up IVIG - pt to see [facility] for this appt per [facility] 03/21/2025 9:20 AM EDT Visit (SP) Office Hematology/Oncology [facility] [place] [address] Jose Cho MD [address] [place] [address] 4 week follow up IVIG - pt to see [facility] for this appt per [facility] 03/21/2025 9:40 AM EDT Infusion Center Hematology/Oncology [address] [place] [address] Gabbi, Chair [address] [place] [address] 4 week follow up IVIG - pt to see [facility] for this appt per [facility] 04/05/2025 2:00 PM EST Infusion Center Hematology/Oncology [address] [place] [address] BENLYSTA - 05/03/2025 2:[address] [facility] Infusion Center Hematology/Oncology [address] [place] [address] [place] [address] BENLYSTA - documented as of this encounter Visit Diagnoses Not on filedocumented in this encounter Care Teams Swimming Professor Relationship Specialty Start Date End Date Manuel Klein MD PCP - General Family Medicine 02/27/22 Manuel Klein MD Referring Family Medicine 02/12/22 Manuel Klein MD [address] [place] [address] Referring Family Medicine 07/06/24 documented as of this encounter
--- OUTSIDE RECORDS SUMMARY | 2025-02-24 11:51 | XMS_ITS | CCD ---
Author Organization [facility] Care Team Providers Care Javascript Developer Name Role Phone MICHELNERY VICTOR MANUEL Lynne Referring Unavailable Unavailable Primary Care Provider UnavailJONAS Stuart Referring Unavailable Britt [employer] CRM [email or web address].TRUE, Gay Primary Care Provider [phone] Mirela Kelsey Unavailable Britt [employer] CRM [email or web address].ROOM SERVICE ASSOCIATE, Gay Primary Care Provider Manuel Ferris MD Unavailable Manuel Ferris MD Primary Care Provider Manuel Ferris MD Unavailable Manuel Ferris MD Primary Care Provider [phone] Manuel Ferris MD Unavailable Manuel Ferris MD Primary Care Provider [phone] MANUEL LYEVA Primary Care Unavailable MISC, DR SMITH Consulting [...] Unavailable HOCristina ., DR BURKETT Admitting Unavailable LAURE, DR DIETZ Consulting Unavailable LAURE, DR DIETZ Attending Unavailable LAURE, DR DIETZ Admitting Unavailable GAY ENCISO Primary [...] DR BURKETT Admitting Unavailable MARISSA, DR SAYDA Nleson Consulting Unavailable Charles Nicole DO Primary Care Provider Mitali THORPE-TRUE, Michelle L Unavailable Unavailable Primary Care Provider UnavailAurora Carney MD Unavailable Britt TABOR, Gay S Primary Care Provider Manuel Ferris MD Primary Care Provider [phone] MD Adolfo Kang Attending Provider [phone] CARISSA Enciso-C Gay Estrada Primary Care Provider Charles Nicole MD Primary Care Provider CALOS MENDOZA Attending Unavailable Unavailable Primary Care Provider UnavailManuel Calixto MD Unavailable Britt COURTESY CAR DRIVER-C, Gay Estrada Primary Care Provider [phone] Jorge Luis LEE, Adolfo S Attending Provider ALHAJI HEAD Attending Unavailable MANUEL FERRIS Primary Care Unavailable ALHAJI HEAD Attending Unavailable VAIBHAV CARVALHO Referring Unavailable MANUEL FERRIS Primary Care Unavailable Gay Enciso MD Unavailable Mitali TABOR, Michelle London Unavailable Aurora Patel MD Unavailable Britt TABOR Gay S Primary Care Provider HOLM, SAENZ M Attending Unavailable BRITT, GAY S Primary Care Unavailable HOLMLOIS M Attending Unavailable LOIS HOLM M Referring Unavailable BRITT, GAY S Primary Care Unavailable Britt COURTESY CAR DRIVER-C, Gay Natalie Primary Care Provider [phone] Jorge Luis LEE, Adolfo Jane Attending Provider [phone] Britt COURTESY CAR DRIVER-C, Gay Natalie Primary Care Provider Jorge Luis LEE, Adolfo Jane Attending Provider Margie Arnett NP Attending Provider Britt COURTESY CAR DRIVER-C, Gay Natalie Primary Care Provider Jorge Luis LEE, Adolfo Jane Attending Provider [phone] Bandar Portillo APRN Attending Provider Adolfo Kang Admitting Unavailable Adolfo Kang Attending Unavailable Britt, Gay Natalie Primary Care Unavailable Adolfo Kang S Admitting Unavailable Adolfo Kang Attending Unavailable Britt, Gay Natalie Primary Care Unavailable Carolyne, Janes Admitting Unavailab le CarolyneMackenzieJanes Attending Unavailab le Britt, Gay Natalie Primary Care Unavailable Jorge Luis Adolfo S Admitting Unavailable Jorge LuisAdolfo S Attending Unavailable Britt, Gay Natalie Primary Care Unavailable HOY, MANUEL M Primary Care Unavailable ABHYANKAR, VERA Referring Unavailable LAST, LYNNE Referring Unavailable HOY, MANUEL M Primary Care Unavailable ABHYANKAR, VERA Referring Unavailable HOY, MANUEL M Primary Care Unavailable ABHYANKAR, VERA Referring Unavailable HOY, MANUEL M Primary Care Unavailable HOY, MANUEL M Primary Care Unavailable CONCE[place], [place] Referring Unavailable ABHYANKAR, VERA Referring Unavailable HOY, MANUEL M Primary Care Unavailable LAST, LYNNE Referring Unavailable HOY, MANUEL M Primary Care Unavailable LAST, LYNNE Attending Unavailable HOY, MANUEL M Primary Care Unavailable HOY, MANUEL M Primary Care Unavailable LAST, LYNNE Referring Unavailable HOY, MANUEL M Primary Care Unavailable DEVEN, VAIBHAV Referring Unavailable HOY, MANUEL M Primary Care Unavailable HOY, MANUEL M Primary Care Unavailable DEVEN, VAIBHAV Attending Unavailable HOY, MANUEL M Primary Care Unavailable ABHYANKAR, VERA Referring Unavailable ABHYANKAR, VERA Referring Unavailable ANDRE CARVALHOE Attending Unavailable HOY, MANUEL M Primary Care Unavailable HOY, MANUEL M Primary Care Unavailable HOY, MANUEL M Primary Care Unavailable ABHYANKAR, VERA Attending Unavailable HOY, MANUEL M Primary Care Unavailable ABHYANKAR, VERA Referring Unavailable HOY, MANUEL M Primary Care Unavailable ABHYANKAR, VERA Referring Unavailable HOY, MANUEL M Primary Care Unavailable HOY, MANUEL M Primary Care Unavailable DEVENANDREE Attending Unavailable ABHYANKAR, VERA Referring Unavailable HOY, MANUEL [...] Primary Care Unavailable ABHYANKAR, VERA Referring Unavailable LAST, LYNNE Referring Unavailable HOY, MANUEL M Primary Care Unavailable LAST, LYNNE Referring Unavailable HOY, MANUEL M Primary Care Unavailable [place] BEEBE Attending Unavailable ABHYANKAR, VERA Referring Unavailable HOY, MANUEL M Primary Care Unavailable HOY, MANUEL M Primary Care Unavailable HOY, MANUEL M Primary Care Unavailable LAST, LYNNE Referring Unavailable HOY, MANUEL M Primary Care Unavailable Britt FERRER-C, Gay Estrada Primary Care Provider Adolfo Kang MD Attending Provider Janes Barfield MD Attending Provider Jorge Luis LEE, Adolfo Jane Other Provider BERNABE ENGLISH Attending Unavailable GORDO BARFIEDL Attending Unavailable LUAN VALDIVIA Attending Unavailable MELISSA HUDDLESTON Attending Unavailable OLY PLASCENCIA Referring Unavailable BERNABE ENGLISH Attending Unavailable OLY PLASCENCIA Attending Unavailable MARKY MIKE Attending Unavailable GORDO BARFIELD Attending Unavailable GAY ENCISO Referring Unavailable OLY PLASCENCIA Attending Unavailable Allergies Allergy Classification Reported Allergen(s) Allergy Type Date of Onset Reaction(s) Facility Dihydrofolate Reductase Inhibitors (antibiotic) (3 sources) Trimethoprim Drug Allergy Other: See Comments [facility] Doxycycline (3 sources) Doxycycline Drug Allergy Other: See Comments [facility] Latex (3 sources) Latex Substance Allergy Rash [facility] Lincosamides (antibiotic) (3 sources) Clindamycin Drug Allergy Unknown [facility] Opioid Agonists (3 sources) Codeine Drug Allergy Other: See Comments [facility] Sulfamethoxazole / Trimethoprim (4 sources) Sulfamethoxazole / Trimethoprim Drug Allergy [facility] Sulfonamides (antibiotic) (3 sources) Sulfamethoxazole Drug Allergy Other: See Comments [facility] Work Phone: (20 sources) Codeine; Translations: [CODEINE] Drug Allergy Other: See Comments [facility] (20 sources) Latex; Translations: [LATEX] Drug Allergy Rash [facility] (20 sources) Sulfamethoxazole; Translations: [SULFAMETHOXAZOLE] Drug Allergy GI Upset, Other: See Comments [facility] (20 sources) Clindamycin; Translations: [CLINDAMYCIN] Drug Allergy Unknown [facility] (4 sources) Sulfamethoxazole / Trimethoprim Drug Allergy lymph swelling [facility] Other (20 sources) Doxycycline; Translations: [DOXYCYCLINE] Drug Allergy Other: See Comments, Other, Unknown, Other (See Comments) [facility] (20 sources) Sulfamethoxazole / Trimethoprim; Translations: [SULFAMETHOXAZOLE-T RIMETHOPRIM] Drug Allergy Swelling, Other, GI Disturbance, Other (See Comments) [facility] (20 sources) Trimethoprim; Translations: [TRIMETHOPRIM] Drug Allergy Other: See Comments [facility] (1 source) Latex Drug allergy (disorder) [facility] (1 source) Sulfamethoxazole / Trimethoprim Drug Allergy [facility] (20 sources) Sulfamethoxazole Allergy to substance [facility] (20 sources) Latex Propensity to adverse reactions Rash [facility] (1 source) Omeprazole; Translations: [OMEPRAZOLE] Drug Allergy [facility] (1 source) pantoprazole; Translations: [PANTOPRAZOLE] Drug Allergy [facility] (1 source) Clindamycin Drug Allergy [facility] (1 source) Sulfamethoxazole Drug Allergy [facility] (1 source) Trimethoprim Drug Allergy [facility] Medications Current Medications Medication Drug Class(es) Dates Sig (Normalized) Sig (Original) acetaminophen 500 mg oral tablet (20 sources) Start: 01-31-2025 take 2 tablets by mouth every six hours as needed for pain Acetaminophen (Acetaminophen Extra Strength) 500 mg tablet Active 1000 MG PO Every 6 hours as needed for pain January 31, 2025 12:00am Complies with drug therapy Start: 01-24-2025 End: 01-24-2025 take 1 dose by mouth once, then take 4000 mg by mouth once daily 650 mg, ORAL, ONCE, 1 dose, On Wed01/24/25 at 0930, No more than 4000 mg of acetaminophen should be given per day (FROM ALL SOURCES) Start: 01-11-2025 End: 01-11-2025 take 1 dose by mouth once 1,000 mg, ORAL, ONCE, 1 dose , On Delmi 01/11/25 at 1430 Start: 12-14-2024 End: 12-14-2024 take 1 dose by mouth once 1,000 mg, ORAL, ONCE, 1 dose , On Delmi /24/25 at 1430 Start: 11-29-2024 End: 11-29-2024 take 1 dose by mouth once, then take 4000 mg by mouth once daily 650 mg, ORAL, ONCE, 1 dose, On Wed11/29/24 at 1000, No more than 4000 mg of acetaminophen should be given per day (FROM ALL SOURCES) Start: 11-16-2024 End: 11-16-2024 take 1 dose by mouth once 1,000 mg, ORAL, ONCE, 1 dose , On Wed11/16/24 at 1400 Start: 10-31-2024 End: 10-31-2024 take 1 dose by mouth once, then take 4000 mg by mouth once daily 650 mg, ORAL, ONCE, 1 dose, On Wed10/31/24 at 1000, No more than 4000 mg of acetaminophen should be given per day (FROM ALL SOURCES) Start: 10-19-2024 End: 10-19-2024 take 1 dose by mouth once 1,000 mg, ORAL, ONCE, 1 dose , On Wed10/19/24 at 1430 Start: 2024 End: 2024 take 1 dose by mouth once 1,000 mg, ORAL, ONCE, 1 dose , On Wed10/04/24 at 1430 Start: 10-02-2024 End: [...] MG tablet every 4 (four) hours Active acetaminophen (T YLENOL) 500 mg tablet [...] above: Take 1,000 mg by ce th. amoxicillin 875 mg oral tablet (2 sources) Penicillin-class Antibacterial Start: 10-20-19 take 1 tablet by mouth every twelve [...] chewable tablet Chew 81 mg Daily Active Comment on above: Take 81 mg by mouth. azaTHIOprine 50 mg oral tablet (20 sources) Purine Antimetabolite Start: 05-24-19 End: 11-11-19 take 3 tablets by mouth once daily azaTHIOprine (Imuran) 50 MG tablet Take 150 mg by mouth Daily 05/24/2023 Active Start: 05-24-2023 End: 11-13-2024 take 1 tablet by mouth three times daily Azathioprine 50 mg tablet Discontinued 50 MG PO Three times daily October 20, 2023 12:00am November 13, 2024 11:22am Start: 05-24-2023 take 50 mg by mouth [...] tablet (20 sources) gamma-Aminobutyric Acid-ergic Agonist Start: 4 End: 4 take 1 tablet by mouth at bedtime baclofen (Lioresal) 5 MG tablet Indications: Lumbosacral radiculopathy at L5 , Degenerative disc disease, lumbar , Cervical radiculopathy at C5 TAKE 1 TABLET BY MOUTH IN THE MORNING, EVENING AND BEFORE BEDTIME 270 tablet 1 03/02/2024 Active belimumab (20 sources) B Lymphocyte Stimulator-specific Inhibitor Start: belimumab (Benlysta) Active IV every month November 13, 2024 12:00am Complies with drug therapy Start: 11-13-2024 Start: 02-04-2023 End: 11-13-2024 inject 200 mg by subcutaneous injection every week belimumab (Benlysta) 200 MG/ML injection Inject 200 mg under the skin 1 (one) time per week 02/04/2023 Active Comment on above: Inject 200mg (1 pen) subcutaneously once weekly cephalexin 500 mg oral capsule (6 sources) Cephalosporin Antibacterial Start: End: take 1 capsule by mouth [...] THE FACE. 30 day supply 236 mL 03/17/2024 04/16/2024 Active Start: 07-15-2023 End: 03-16-2024 [...] TOPICAL As Directed October 20, 2023 12:00am Complies with drug therapy Start: 10-20-2023 Clobetasol Act kaycee TOPICAL October 20, 2023 12:00am Start: 10-23-2022 End: 07-25-2024 Clobetasol Propionate 0.05 % shampoo Indications: Other seborrheic dermatitis 1 application to the scalp in the shower topically 3-4 times a week 236 mL 11 07/25/2024 Active clonazePAM 0.5 mg oral tablet (20 sources) Benzodiazepine Start: 07-31-2024 take 1 tablet by mouth once daily as needed KlonoPIN 0.5 MG tablet 1 tablet Orally Once a day prn for 30 days 09/01/2024 Active clotrimazole 10 mg oral lozenge (10 sources) Azole Antifungal Start: 10-23-2024 clotrimazole (MYCELEX) 10 mg christel USE 1 CHRISTEL WHILE ON IMMUNOSUPPRESSIVE MEDICINE BY MOUTH/THROAT 3 TIMES A DAY 10/23/2024 Active Start: 04-05-2024 clotrimazole ( MYCELEX) 10 mg christel Dissolve 1 Christel in [...] times a day as needed. 02/01/2024 Active wbqejyugabIKHGQ-ezgbxn-hsuvl belia (BMX 1:1:1) 1:1:1 liqd (20 sources) Start: 07-12-2024 take 5 mL by mouth every six hours as needed awsegrfafjUYNZW-sqzpin-irkombefo (BMX 1:1:1) 1:1:1 liqd Take 5 mL [...] sources) Serotonin and Norepinephrine Reuptake Inhibitor Start: take 1 capsule by mouth once daily Duloxetine 20 mg capsule,delayed release(DR/EC) Active 20 MG PO Daily December 12, 2024 12:00am Complies with drug therapy Start: 02-01-2024 End: 03-16-2024 take 1 capsule [...] on above: Take 1 capsule by [facility] once daily. ergocalciferol 1.25 mg oral capsule (20 sources) Provitamin D2 Compound Start: 11-13-2024 Ergocalciferol (Vitamin D2) 1,250 mcg (50,000 unit) capsule Active 37106 UNIT PO 3 Times a week November 13, 2024 11:23am Complies with drug therapy Start: 04-02-2024 End: 07-09-2024 ergocalciferol 50,000 unit c apsule (VITAMIN D2, DRISDOL) Indications: Vitamin D deficiency Take 1cap by mouth twice a week x 10weeks, then once a week with food. 24 capsule 1 04/02/2024 07/09/2024 Discontinued Start: 10-20-2023 End: 11-13-2024 Ergocalciferol (Vitamin D2) 1,250 mcg (50,000 unit) capsule Discontinued 54035 UNIT PO every week October 20, 2023 12:00am November 13, 2024 11:24am Start: 10-31-2022 End: 04-02-2024 take 1 capsule [...] 03/06/2021 Active take 1 capsule by [facility] every week ergocalciferol (Vitamin D2) 1.25 MG (49742 UT) capsule Take 50,000 Units by mouth [...] fumarate / Norethindrone (20 sources) Estrogen Start: 11-17-2024 take 1 tablet by mouth once daily LO LOESTRIN FE 1 mg-10 mcg (24)/10 mcg (2) Take 1 tablet by mouth once daily. 11/17/2024 Active Start: 03-23-2024 End: 02-22-2025 take 1 tablet by mouth once daily norethindrone-ethinyl estradiol-iron (Lo Loestrin Fe) 1 MG-10 MCG / 10 MCG tablet Indications: Menorrhagia with regular cycle Take 1 tablet by mouth Daily Take 1 tablet by mouth daily 28 tablet 11 03/23/2024 02/22/2025 Active fidaxomicin 200 mg oral tablet (20 sources) Macrolide Antibacterial Start: 06-15-2024 End: 06-25-2024 take 1 tablet by mouth once in [...] needed for rash October 20, 2023 12:00am Complies with drug therapy fluticasone propionate 0.05 mg/actuat metered dose nasal [...] clean tip and replace cap.. 16 g 12/04/2023 Active fluticasone prop ionate (FLONASE) 50 mcg/actuation nasal spray Administer 2 sprays into each nostril as needed. Active folic acid 1 mg oral tablet (20 sources) Start: 12-12-2024 Folic Acid 1 m g tablet Active PO Daily December 12, 2024 12:00am Complies with drug therapy Start: 03-18-2022 End: 11-26-2023 take 1 tablet by mouth in the morning folic acid (Folvite) 1 MG tablet Take 1 mg by mouth in the morning. 01/15/2023 Active Comment on above: Take 1 tablet by ce once daily. TAKE 1 TABLET BY CE EVERY DAY hydroxychloroquine sulfate 200 mg oral tablet (20 sources) Antimalarial, Antirheumatic Agent Start: 01-24-20 hydrOXYchloroQUINE (PLAQUENIL) 200 mg tablet Indications: CHRISTIAN positive , Other systemic lupus erythematosus with other organ involvement (HCC) TAKE 1 TAB TWICE A DAY WITH FOOD *SUNSCREEN WHILE OUTDOORS/OPHTHAMOLOGY EVERY 6-12 MONTHS WHILE ON* 60 tablet 11 01/23/2025 Active Start: 10-20-2023 take 2 tablets by mo uth once daily Hydroxychloroquine 200 mg tablet Active 400 MG PO Daily October 20, 2023 12:00am Complies with drug therapy Start: 10-20-2023 take 400 mg by mouth [...] FOR ABDOMINAL PAIN 0 06/27/2023 Active ibuprofen 400 mg oral tablet (20 sources) Nonsteroidal Anti-inflammatory Drug Start: 02-01-20 25 Ibuprofen 400 mg tablet Active 400 MG PO 2-3 TIMES PER DAY as needed for pain January 31, 2025 12:00am Complies with drug therapy ibuprofen 200 MG tablet every 8 (eight) hours Active ibuprofen (MOTRI N) 200 mg tablet Take 600 mg by mouth. Active take 1 tablet by ce th every six hours as needed for pain ibuprofen (ADVIL;MOTRIN) 200 MG tablet T jaqui 200 mg by mouth every 6 hours as needed for Pain 0 Active Comment on above: Take 600 mg by mouth . Immunoglobulin G (13 sources) Human Immunoglobulin G Start: 12-12-2024 Start: 12-12-2024 gammagard Acti ve IV EVERY 4 WEEKS December 12, 2024 10:58am Complies with drug therapy Start: 12-12-2024 End: 12-12-2024 gammagard Discontinued IV Ju ly 2024 12:00am December 12, 2024 10:58am immune globulin, human, (Gammagard) infusion Infuse into [...] Start: 10-20-2023 take 4 tablets by mo [facility] once daily Metoprolol Tartrate 50 mg tablet Active 200 MG PO Daily October 20, 2023 12:00am Complies with drug therapy Start: 10-20-2023 take 200 mg by mouth once ankur y Metoprolol Tartrate Active 200 MG PO Daily October 20, 2023 12:00am Start: 10-20-2023 take 50 mg by mouth once daily Metoprolol Tartrate Active 50 MG PO Daily October 20, 2023 12:00am Start: 05-25-2022 End: 07-26-2024 take 2 tablets by mouth in the morning metoprolol tartrate (Lopressor) 50 MG tablet Take 100 mg by mouth in the morning and 100 mg before bedtime. 04/23/2023 Active Start: 05-25-[address] [facility] twice daily metoprolol tartrate, short acting, [...] Start: 01-19-2022 take 1 capsule by mo [facility] once daily naltrexone capsule [...] 0.4 mg unde r the tongue. nystatin [id number] unt/ml oral suspension (20 sources) Polyene Antifungal Start: take 4 mL by mouth four times daily nystatin (MYCOSTATIN) 100,000 unit/mL suspension TAKE 4 ML BY MOUTH / THROAT 4 TIMES A DAY FOR 7 DAYS 11/06/2024 Active Start: 07-31-2024 End: 12-12-2024 take 1 mL by mouth once daily Nystatin 100,000 unit/mL suspension Discontinued 1 ML PO Daily July 31, 2024 12:00am December 12, 2024 10:49am swish and swallow Start: 07-25-2024 End: 08-08-2024 nystatin (Mycostatin) 162224 UNIT/ML suspension Indications: Rash and other nonspecific [...] tablet (20 sources) Proton Pump Inhibitor Start: 11-13-2024 take 2 tablets by mouth twice daily Pantoprazole 20 mg tablet,delayed release (DR/EC) Active 40 MG PO Twice daily November 13, 2024 11:24am Complies with drug therapy Start: 11-13-2024 take 2 tablets by mo uth once daily Pantoprazole 20 mg tablet,delayed release (DR/EC) Active 40 MG PO Daily November 13, 2024 11:24am Complies with drug therapy Start: 10-21-2024 take 1 tablet by ce th at breakfast pantoprazole DR (PROTONIX) 40 mg tablet TAKE 1 TABLET BY MOUTH 1/2 TO 1 HOUR BEFORE MORNING MEAL 10/21/2024 Active Start: 07-19-2024 End: 11-13-2024 take 1 tablet by mouth once daily Pantoprazole 20 mg tablet,delayed release (DR/EC) Discontinued 20 MG PO Daily July 19, 2024 1:00am November 13, 2024 11:24am Start: 01-26-2024 End: 03-16-2024 take 1 tablet [...] 10 mg oral tablet (20 sources) Start: 01-23-2025 predniSONE (DELTASONE) 10 mg tablet Indications: Other systemic lupus erythematosus with other organ involvement (HCC) Take 40mg daily x 3, decrease by 5mg every 3days until taking 10mg daily with food thereafter (no oral nsaids) 120 tablet 1 01/23/2025 Active Start: 06-22-2024 End: 10-07-2024 predniSONE (DELTASONE) 10 mg tablet Indications: Other systemic lupus erythematosus with other organ involvement (HCC) Take 40mg daily x 3, decrease by 5mg every 3days until taking 10mg daily with food thereafter (no oral nsaids) 120 tablet 1 10/07/2024 Active Start: 01-12-2024 End: 03-17-2024 predniSONE (DELTASONE) 10 mg tablet Indications: Other systemic lupus erythematosus with other organ involvement (HCC) Take 40mg daily x 3, decrease by 5mg every 3days until taking 10mg daily with food thereafter (no oral nsaids) 120 tablet 1 01/12/2024 03/17/2024 Discontinued Start: 10-20-2023 take 2 tablets by mo uth once daily Prednisone 10 mg tablet Active 20 MG PO Daily October 20, 2023 12:00am Complies with drug therapy Start: 05-12-2023 End: 10-07-2024 take 1 tablet by mouth once daily Prednisone 10 mg tablet Active 10 MG PO Daily October 20, 2023 12:00am Complies with drug therapy Start: 05-12-2023 End: 10-05-2023 predniSONE (DELTASONE) 10 [...] 0.1 % ointment 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 08/16/2023 Active thiamine 100 mg oral tablet (20 sources) Start: 12-12-2024 take 1 tablet by mouth once daily as needed Thiamine Hcl (Vitamin B1) 100 mg tablet Active MG PO Daily as needed December 12, 2024 12:00am Complies with drug therapy Start: 06-01-2023 End: 02-06-2025 take 1 tablet by mouth once daily Thiamine Hcl (Vitami n B1) 100 mg tablet Active 100 MG PO Daily December 12, 2024 12:00am Complies with drug therapy topiramate 25 mg oral tablet (20 sources) Start: 04-26-2023 End: 03-18-2024 take 1 tablet by mouth twice daily topiramate (TOPAMAX) 25 mg tablet Indications: Other chronic pain Take 1 tablet by mouth two times a day. 180 tablet 05/26/2023 03/18/2024 Discontinued (Course of therapy completed) Comment on above: Take 1 tablet by ce th two times a day. tretinoin 0.25 mg/ml topical cream (20 sources) Retinoid Start: 11-23-2024 tretinoin (Ret in-A) 0.025 % cream Indications: Acne vulgaris Apply to face, once daily at evening/night time, 30 day supply 45 g 11 11/23/2024 Active Start: 07-15-2023 tretinoin (Ret in-A) 0.05 % cream Indications: Striae atrophic Apply to face, once daily at evening/night time, 30 day supply 20 g 11 07/15/2023 Active Vitamin D 50 MCG (1999 UT) [...] oral tablet (20 sources) Benzodiazepine Start: 06-24-2023 End: 09-04-2024 take 1 tablet by mouth once daily as needed for anxiety Alprazolam 0.25 mg tablet Discontinued 0.25 MG PO Daily as needed for anxiety October 20, 2023 12:00am July 31, 2024 4:04pm amLODIPine 5 mg oral tablet (8 sources) Dihydropyridine Calcium Channel Judie Start: 02-03-2024 End: 03-16-2024 take 1 tablet by mouth once daily amLODIPine (Norvasc) 5 MG tablet Take 5 mg by mouth Daily 02/03/2024 03/16/2024 Discontinued Start: 10-07-2020 take 1 tablet by ce th once daily amLODIPine (NORVASC) 2.5 MG tablet Take 1 tablet by mouth daily 30 tablet 3 10/07/2020 Active belimumab 1,275 mg in NaCl 0 .9% 250 mL (BENLYSTA) (3 sources) Start: 11-16-2024 End: 11-16-2024 1,275 mg (10 mg/kg/dose 127. 5 kg), INTRAVENOUS, at 250 mL/hr, Administer over 60 Minutes, ONCE, 1 dose, On Wed11/16/24 at 1400, Total Volume - EXP: 11/16/20242199 RT Protect From Light Start: 10-19-2024 End: 10-19-2024 1,275 mg (10 mg/kg/dose 127. 5 kg), INTRAVENOUS, at 250 mL/hr, Administer over 60 Minutes, ONCE, 1 dose, On Wed10/19/24 at 1430, Total Volume - EXP: 10/19/20242204 RT Protect From Light Start: 2024 End: 2024 1,275 mg (10 mg/kg/dose 127. 5 kg), INTRAVENOUS, at 250 mL/hr, Administer over 60 Minutes, ONCE, 1 dose, On Wed10/04/24 at 1430, EXP: 10/04/20242034 RT Protect From Light belimumab 1,307 mg in NaCl 0 .9% 250 mL (BENLYSTA) (2 sources) Start: 01-11-2025 End: 01-11-2025 1,307 mg (10 mg/kg/dose 130. 7 kg), INTRAVENOUS, at 250 mL/hr, Administer over 60 Minutes, ONCE, 1 dose, On Wed01/11/25 at 1430, Total Volume - EXP: 01/11/20252204 RT Protect From Light Start: 12-14-2024 End: 12-14-2024 1,307 mg (10 mg/kg/dose 130. 7 kg), INTRAVENOUS, at 250 mL/hr, Administer over 60 Minutes, ONCE, 1 dose, On Wed12/14/24 at 1430, Total Volume - EXP: 12/14/20242014 RT Protect From Light belimumab 1,318 mg [...] mg oral tablet (9 sources) Corticosteroid Start: End: dexAMETHasone (Decadron) 2 MG tablet Indications: Lumbosacral radiculopathy at L5 2mg 3 pills po X3 days,2 pills po daily X3 days , then 1 pill po daily X3 days then stop 9 days 18 pills 18 tablet 1 01/20/2024 03/16/2024 Discontinued dicyclomine hydrochloride 10 mg oral capsule (20 sources) Anticholinergic Start: End: take 1 capsule [...] capsule orally twice a day prn diphenhydrAMINE (15 sources) Histamine-1 Receptor Antagonist Start: 01-24-2025 End: 01-24-2025 25 mg, INTRAVENOUS, ONCE, 1 dose, On Wed01/24/25 at 0930 Start: 01-11-2025 End: 01-11-2025 take 1 dose by mouth once 25 mg, ORAL, ONCE, 1 dose, O n Delmi 01/11/25 at 1430 Start: 12-14-2024 End: 12-14-2024 take 1 dose by mouth once 25 mg, ORAL, ONCE, 1 dose, O n Delmi 12/14/24 at 1430 Start: 11-29-2024 End: 11-29-2024 25 mg, INTRAVENOUS, ONCE, 1 dose, On 11/29/24 at 1000 Start: 11-16-2024 End: 11-16-2024 take 1 dose by mouth once 25 mg, ORAL, ONCE, 1 dose, O n Delmi 11/16/24 at 1400 Start: 10-31-2024 End: 10-31-2024 25 mg, INTRAVENOUS, ONCE, 1 dose, On Tu10/31/24 at 1000 Start: 10-19-2024 End: 10-19-2024 take 1 dose by mouth once 25 mg, ORAL, ONCE, 1 dose, O n Delmi 10/19/24 at 1430 Start: 2024 End: 2024 take 1 dose by mouth once 25 mg, ORAL, ONCE, 1 dose, O n 10/04/24 at 1430 Start: 10-02-2024 End: 10-02-2024 25 mg, INTRAVENOUS, ONCE, 1 dose, On Wed10/02/24 at 0900 Start: 09-18-2024 End: 09-18-2024 take 1 dose by mouth once 25 mg, ORAL, ONCE, 1 dose, O n 09/18/24 at 1300 Start: 09-06-2024 End: 09-06-2024 25 mg, INTRAVENOUS, ONCE, 1 dose, On 09/06/24 at 0930 Start: 08-08-2024 End: 08-08-2024 25 mg, INTRAVENOUS, ONCE, 1 dose, On Wed08/08/24 at 0930 Start: 07-11-2024 End: 07-11-2024 25 mg, INTRAVENOUS, ONCE, 1 dose, On Wed07/11/24 at 0900 Start: 06-13-2024 End: 06-13-2024 25 mg, INTRAVENOUS, ONCE, 1 dose, On Wed06/13/24 at 1000 Start: 05-19-2024 End: 05-19-2024 25 mg, INTRAVENOUS, ONCE, 1 dose, On Wed05/19/24 at 1000 famotidine 20 mg oral tablet (18 sources) Histamine-2 Receptor Antagonist Start: 04-10-2024 End: 09-04-2024 take 1 tablet by mouth at bedtime [...] 10/24/2021 Discontinued take 1 tablet by ce twice daily as needed famotidine (PEPCID) 20 mg tablet Take 1 tablet (20 mg total) by mouth 2 (two) times a day as needed. Active Comment on above: Take 20 mg by mouth daily at bedtime. gentamicin 0.001 mg/mg topical ointment (14 sources) Start: 11-22-2023 End: 12-16-2023 Gentamicin 0.1 % ointment Discontinued 1 APPLIC TOPICAL Three times daily 07 03November 22, 2023 12:00am December 16, 2023 2:12pm hydrocortisone 100 mg injection (9 sources) Corticosteroid Start: 01-24-2025 End: 01-24-2025 50 mg, INTRAVENOUS, ONCE, 1 dose, On Wed01/24/25 at 0930 Start: 11-29-2024 End: 11-29-2024 50 mg, INTRAVENOUS, ONCE, 1 dose, On Wed11/29/24 at 1000 Start: 10-31-2024 End: 10-31-2024 50 mg, INTRAVENOUS, ONCE, 1 dose, On Wed10/31/24 at 1000 Start: 10-02-2024 End: 10-02-2024 50 mg, INTRAVENOUS, [...] empty bag Total Volume 350 mL (GAMMAGARD) (8 sources) Start: 11-29-2024 End: 11-29-2024 35 g (rounded from 34.72 g = 0.4 g/kg/dose 86.8 kg Treatment plan adjusted weight), INTRAVENOUS, ONCE, 1 dose, On Wed11/29/24 at 1030, EXP: 99911/30/24 Refrigerate - Prepared as a 10% solution - Brand: Lot: Total Volume., Infusion regimen: Standard, Starting rate (mL/kg/hr): 0.5 mL/kg/hr, Rate after 30 min (mL/kg/hr): 1 mL/kg/hr, Titration rate/max: Increase by 1 mL/kg/hr every 30 minutes thereafter to a max of 5 mL/kg/hr unless signs or symptoms of reaction Start: 10-31-2024 End: 10-31-2024 35 g (rounded from 34.72 g = 0.4 g/kg/dose 86.8 kg Treatment plan adjusted weight), INTRAVENOUS, ONCE, 1 dose, On Wed10/31/24 at 1030, EXP: Refrigerate - Prepared as a 10% solution - Brand: Lot: Total Volume., Infusion regimen: Standard, Starting rate (mL/kg/hr): 0.5 mL/kg/hr, Rate after 30 min (mL/kg/hr): 1 mL/kg/hr, Titration rate/max: Increase by 1 mL/kg/hr every 30 minutes thereafter to a max of 5 mL/kg/hr unless signs or symptoms of reaction Start: 10-02-2024 End: 10-02-2024 35 g (rounded [...] mL/kg/hr unless signs or symptoms of reaction immune globulin (human) (IgG) 35 g in empty bag Total Volume 350 mL (GAMUNEX-C) (1 source) Start: 01-24-2025 End: 01-24-2025 35 g (rounded from 34.72 g = 0.4 g/kg/dose 86.8 kg Treatment plan adjusted weight), INTRAVENOUS, ONCE, 1 dose, On Wed01/24/25 at 1000, EXP: Refrigerate - Prepared as a 10% [...] End: 09-04-2024 take 1 capsule by mouth once daily Omeprazole 40 mg capsule,delayed release(DR/EC) Discontinued 40 MG PO Daily 30 March 16, 2024 12:00am July 19, 2024 [...] 1 capsule by mo nhh twice daily. pravastatin sodium 20 mg oral [...] for nerve pain October 20, 2023 12:00am Complies with drug therapy Start: 10-20-2023 take 225 mg by mouth once ankur y Pregabalin Active 225 MG PO Daily October 20, 2023 12:00am Start: 07-06-2023 take 1 capsule by mo uth three times daily pregabalin (Lyrica) 100 MG [...] tablet (9 sources) Factor Xa Inhibitor Start: End: take 1 tablet by mouth at mealtime Xarelto 15 MG tablet Take 15 mg by mouth in the evening. Take with meals 12/06/2023 03/16/2024 Discontinued simvastatin 20 mg oral tablet (20 sources) HMG-CoA Reductase Inhibitor Start: End: simvastatin (ZOCOR) 20 mg tablet terbinafine 250 mg oral tablet (3 sources) Allylamine Antifungal Start: End: take 1 tablet by mouth once daily terbinafine (LamISIL) 250 MG tablet Indications: Oral thrush Take 1 tablet (250 mg) by mouth Daily for 5 days 5 tablet 04/02/2024 04/03/2024 Discontinued triamcinolone acetonide 10 mg/ml injectable suspension (20 sources) Corticosteroid Start: End: triamcinolone acetonide (Kenalog) injection 2.5 mg Start: 02-14-2025 End: 02-14-2025 2.5 mg, Intra-lesional, Once , On Wed02/14/25 at 1545, For 1 dose Start: 11-23-2024 triamcinolone acetonide (Kenalog) injection 2.5 mg Start: 06-23-2022 Triamcinolone Acetonide 0.025 % lotion 1 application 06/23/2022 Active triamcinolone ac etonide (KENALOG) 0.025 % lotion Apply 1 Application topically as needed. Active vitamin b12 1 mg/ml injectable solution (17 sources) Vitamin B12 Start: 11-29-2024 End: 11-29-2024 inject 1 dose by intramuscular injection once 1,000 mcg, INTRAMUSCULAR, ONCE, 1 dose, On Wed11/29/24 at 1000 Start: 10-31-2024 End: 10-31-2024 inject 1 dose by intramuscular injection once 1,000 mcg, INTRAMUSCULAR, ONCE, 1 dose, On Wed10/31/24 at 1000 Start: 10-02-2024 End: 10-02-2024 inject 1 dose by intramuscular injection once [...] 1,000 mcg, INTRAMUSCULAR, ONCE, 1 dose, On Wed03/23/24 at 1030 Start: 02-21-2024 End: 02-21-2024 inject 1 dose by intramuscular injection once 1,000 mcg, INTRAMUSCULAR, ONCE, 1 dose, On Wed02/21/24 at 1100 Start: 01-25-2024 End: 01-25-2024 inject 1 dose by intramuscular injection once 1,000 mcg, INTRAMUSCULAR, ONCE, 1 dose, On Wed01/25/24 at 1130 Start: 12-28-2023 inject 1 mL [...] Onset: 4 Chronic Deficiency and other anemia (9 sources) Anemia of chronic disease; Translations: [Anemia [...] 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] Onset: 4 04-01-2024 Chronic Malaise and fatigue (20 sources) Malaise and fatigue; Translations: [Chronic fatigue, unspecified] Onset: 4 Chronic Malaise and fatigue (4 sources) Malaise and fatigue; Translations: [Other malaise] Onset: 5 06-13-2024 Episodic Menstrual disorders (20 sources) Excessive [...] of skin] 07-25-2024 Episodic Nonmalignant breast conditions (19 sources) Mammary duct ectasia; Translations: [Mammary duct [...] sources) Drug therapy status; Translations: [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 goods drier 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] Episodic Other aftercare (1 source) Polypharmacy ; Translations: [Other long goods drier (current) drug therapy] Episodic Other aftercare (1 source) Long-term current use of drug therapy; Translations: [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 goods drier 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] 11-11-2023 Episodic Other [...] Diarrhea, unspecified; Translations: [Diarrhea] 09-22-2023 Episodic Other gastrointestinal disorders (6 sources) Abdominal mass; Translations: [Intra-abdominal and pelvic swelling, mass and lump, unspecified site] 12-12-2024 Episodic Other gastrointestinal disorders (6 sources) Burning sensation; Translations: [Other specified symptoms and signs involving the digestive system and abdomen] 12-12-2024 Episodic Other gastrointestinal disorders (6 sources) Abdominal bloating; Translations: [Abdominal distension (gaseous)] 12-12-2024 Episodic Other gastrointestinal disorders (6 sources) Constipation; Translations: [Constipation, unspecified] 12-12-2024 Episodic Other inflammatory condition of skin (20 sources) Discoid lupus erythematosus; 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] Onset: 2 03-12-2022 Chronic Other inflammatory condition of skin (4 sources) Discoid lupus erythematosus; Translations: [DISCOID LUPUS ERYTHEMATOSUS] Onset: 2 Chronic Other inflammatory condition of skin (8 sources) Lupus erythematosus; 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] [...] Translations: [Snoring] Episodic Other lower respiratory disease (2 sources) Shortness of breath; Translations: [Shortness of breath] Onset: 4 Episodic Other nervous system disorders (20 sources) Chronic pain syndrome; Translations: [Chronic pain syndrome] Onset: 4 06-18-2014 Chronic Other nervous system disorders (20 sources) Chronic pain; Translations: [Other chronic pain] 04-26-2023 Chronic Other nervous system disorders (20 sources) Disorder of autonomic nervous system; Translations: [Disorder of the autonomic nervous system, unspecified] Onset: 4 06-09-2023 Chronic Other nervous system disorders (13 sources) Other chronic pain; Translations: [Other chronic pain] Onset: 5 01-28-2024 Chronic Other nervous system disorders (1 source) Numbness; Translations: [Anesthesia of skin] 02-07-2024 Episodic Other nervous system disorders (4 sources) Cold extremity; Translations: [Unspecified disturbances of skin sensation] 04-06-2024 Episodic Other non-traumatic joint disorders (1 source) Hypermobility syndrome; Translations: [Other specific joint derangements of unspecified joint, not elsewhere classified] 09-19-2024 Chronic Other non-traumatic joint disorders (1 source) Other specific joint derangements of unspecified joint, not elsewhere classified; 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] Onset: 5 Chronic Other nutritional; endocrine; and metabolic disorders (20 sources) Obesity; Translations: [Obesity, unspecified] 02-25-2015 Chronic Other nutritional; endocrine; and metabolic disorders (20 sources) Body mass index 40+ - severely obese; Translations: [Morbid (severe) obesity due to excess calories] Onset: 3 Chronic Other nutritional; endocrine; and metabolic disorders (20 sources) Insulin resistance; Translations: [Insulin resistance, unspecified] Onset: 4 03-10-2023 Chronic Other nutritional; endocrine; and metabolic disorders (2 sources) Morbid obesity; Translations: [Morbid (severe) obesity due to excess calories] 07-13-2023 Chronic Other nutritional; endocrine; and metabolic disorders (2 sources) Morbid (severe) obesity due to excess calories; Translations: [Morbid (severe) obesity due to excess calories (Multi)] Onset: 4 Chronic Other skin disorders (5 sources) Hidradenitis suppurativa; Translations: [Hidradenitis suppurativa] 07-25-2024 Episodic Other skin disorders (4 sources) Acne vulgaris; Translations: [Acne vulgaris] 11-23-2024 Episodic Other upper respiratory disease (20 sources) [...] circulatory system] 09-26-2024 Episodic Residual codes; unclassified (2 sources) Family history of cancer; Translations: [Family history of malignant neoplasm, unspecified] 09-26-2024 Episodic Residual codes; unclassified (1 source) FH: Respiratory disease; Translations: [Family history of other diseases of the respiratory system] 10-26-2024 Episodic Residual codes; unclassified (1 source) FH: Aortic aneurysm; Translations: [Family history of ischemic heart disease and other diseases of the circulatory system] 10-26-2024 Episodic Residual codes; unclassified (2 sources) Pain; Translations: [Pain, unspecified] 11-23-2024 Episodic Rheumatoid arthritis and related disease (3 sources) Rheumatoid arthritis; Translations: [Rheumatoid arthritis, unspecified] Onset: 2 04-06-2024 Chronic Skin and subcutaneous tissue infections (2 sources) Pilonidal cyst; Translations: [Pilonidal cyst without abscess] 02-14-2025 Episodic Spondylosis; intervertebral disc disorders; other back [...] [Supraventricular tachycardia, unspecified (CMS-HCC)] Onset: 4 Unclassified (2 sources) Call Dr. Donaldson office to schedule a follow up appointment if you do not already have one scheduled Past or Other Problems Problem Classification Problem [...] to vitamin B12 deficiency] Onset: 2 Episodic Deficiency and other anemia (1 source) Other iron deficiency anemias; Translations: [Other iron deficiency anemia] Onset: 3 Episodic Diabetes mellitus without complication (20 sources) [...] [Nonintractable episodic headache] Onset: 4 06-01-2023 Episodic Immunizations and screening for infectious disease (20 sources) Anti-nuclear factor positive; Translations: [Other specified abnormal immunological findings in serum] Onset: 1 Episodic Intestinal infection (20 sources) Clostridium difficile [...] 4 12-16-2023 Episodic Nutritional deficiencies (20 sources) Cobalamin deficiency; Translations: [Deficiency of other specified B group vitamins] Onset: 5 Episodic Other aftercare (20 sources) Drug therapy finding; Translations: [Other skilled nursing (current) drug therapy] Onset: 1 Episodic Other aftercare (20 sources) H/O: high risk medication; Translations: [Other skilled nursing (current) drug therapy] Onset: 3 06-15-2022 Episodic Other aftercare (1 source) Other long goods drier (current) drug therapy; Translations: [OTH BLISTER PACKING MACHINE TENDER 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 THERAPY] Onset: 2 Episodic Other aftercare (20 sources) Long-term current use of systemic steroid; Translations: [manager english (current) use of 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] Onset: 3 02-04-2023 Episodic Other connective tissue disease (20 [...] leg, unspecified] 04-06-2024 Episodic Other gastrointestinal disorders (20 sources) Diarrhea; Translations: [Diarrhea, unspecified] Onset: 4 09-22-2023 Episodic Other hematologic conditions (20 sources) ESR raised; Translations: [Elevated erythrocyte sedimentation rate] Onset: 1 Episodic Other hematologic conditions (9 sources) Elevated [...] 4 11-08-2023 Episodic Other non-traumatic joint disorders (20 sources) Hip pain; Translations: [Pain in unspecified hip] Onset: 4 06-18-2014 Episodic Other non-traumatic joint disorders (5 sources) Pain in right knee; Translations: [PAIN IN RIGHT KNEE] Onset: 2 Episodic Other non-traumatic joint disorders (1 source) Effusion, right knee; Translations: [EFFUSION RIGHT KNEE] Onset: 2 Episodic Other non-traumatic joint disorders (20 sources) [...] (CRP)] Onset: 2 Episodic Other skin disorders (20 sources) Eruption; Translations: [Rash and other nonspecific skin eruption] Onset: 1 Episodic Other skin disorders (20 sources) Loss of hair; Translations: [Nonscarring hair loss, unspecified] Onset: 1 Episodic Other upper respiratory disease (20 sources) Hoarse; Translations: [Dysphonia] Onset: 4 08-10-2023 Episodic Residual codes; unclassified (20 sources) FH: Crohn's disease; Translations: [Family history of other diseases of the digestive system] Onset: 1 Episodic Residual codes; unclassified (3 sources) Flushing; Translations: [FLUSHING] Onset: 2 Resolved: 2 Episodic Residual codes; unclassified (1 source) Family history of ischemic heart disease and other diseases of the circulatory system; Translations: [Family history of aortic aneurysm] Onset: 5 Episodic Spondylosis; intervertebral disc disorders; other back problems (20 sources) Chronic low back pain; Translations: [Lumbago with sciatica, left side] Onset: 5 Episodic Unclassified (2 sources) Onset: 4 Resolved: 4 07-13-2023 Unclassified (1 source) Supraventricular tachycardia, unspecified (CMS-HCC); Translations: [Supraventricular tachycardia, unspecified (CMS-HCC)] Onset: 4 Viral infection (20 sources) Cytomegaloviral disease, unspecified; 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] Onset: 2 Resolved: 2 Episodic Results Test Name Value Interpretation Reference Range Facility CNPNon 02-12-2025 CNPN Normal [facility]endez HCG ( test) IA.rapi d Ql (U)Ordered By: Adolfotobi Kang on 01-31-2025 HCG ( test) Ql (U) Negative [facility] HCG,Urineon 01-31-2025 Beta HCG ( test) Ql (U) Negative Normal [facility] Comment on above: Result Comment: PERF ORMED BY: [place] [address] PATHOLOGIST BOAT MASTER TIM FOOTE M.D. Performed By: #### U HCG #### [address] BI US BREAST LIMITED LEFTon 01-26-2025 BI US BREAST LIMITED LEFT This is a summary report. The complete report is available in the patient's medical record. If you cannot access the medical record, please contact the sending organization for a detailed fax or copy. Examination: BI US BREAST LIMITED LEFT Reason [...] abnormal calcifications or vascularity. No obvious adenopathy. IMPRESSION: Impression: Left breast axillary ultrasound study demonstrates [...] 3 ELECTRONICALLY SIGNED BY: Yassine Owens M.D. Normal Not Available CNPNon 01-18-2025 CNPN Normal [facility] 25(OH)D3 [place] 2024 25-hydroxyvitamin D3 [Mass/Vol] 32.2 ng/mL Normal 31.0-80.0 [facility] Comment on above: Order Comment: Speci men Type: BLOOD SPECIMENOrdering Facility: [facility] Address: [address] [place] [address] Performed By: #### 1 989-3 ####[facility] [id number] [place] [address] [place] BLOOD TB SCREENon 01-11-2025 M. tuberculosis tuberculin stim IFN-g Ql (Bld) Negative Normal [facility] Comment on above: Order Comment: Speci men Type: BLOOD SPECIMENOrdering Facility: [facility] Address: [address] [place] [address] Performed By: #### I NFTBP ####[facility] [id number] [place] [address] [place] MITOGEN MINUS NIL >9.97 Normal >=0.50 [facility] Comment on above: Order Comment: Speci men Type: BLOOD SPECIMENOrdering Facility: [facility] Address: [address] [place] [address] Performed By: #### I NFTBP ####[facility] [id number] [place] [address] [place] TB GAMMA INTERPRETATION Normal [facility] Comment on above: Order Comment: Speci men Type: BLOOD SPECIMENOrdering Facility: [facility] Address: [address] [place] [address] Performed By: #### I NFTBP ####[facility] [id number] [place] [address] [place] TB NIL 0.03 IU/mL Normal <=8.00 [facility] Comment on above: Order Comment: Speci men Type: BLOOD SPECIMENOrdering Facility: [facility] Address: [address] [place] [address] Performed By: #### I NFTBP ####[facility] [id number] [address] TB1 AG MINUS NIL 0.01 IU/mL Normal <0.35 [facility] Comment on above: Order Comment: Speci men Type: BLOOD SPECIMENOrdering Facility: [facility] Address: [address] [place] [address] Performed By: #### I NFTBP ####[facility] [id number] [address] TB2 AG MINUS NIL 0.01 IU/mL Normal <0.35 [facility] Comment on above: Order Comment: Speci men Type: BLOOD SPECIMENOrdering Facility: [facility] Address: [address] [place] [address] Performed By: #### I NFTBP ####[facility] [id number] [address] [place] CBC panel Auto (Bld)on 01-11 Erythrocyte distribution width (RBC) [Ratio] 14.5 % 11.5 - 15.0 % [facility] Hematocrit (Bld) [Volume fraction] 41.5 % 36.0 - 46.0 % [facility] Hemoglobin (Bld) [Mass/Vol] 13.8 g/dL 11.5 - 15.5 g/dL [facility] Interpretation and review of laboratory results Abnormal [facility] MCH (RBC) [Entitic mass] 32.2 pg 26.0 - 34.0 pg [facility] MCHC (RBC) [Mass/Vol] 33.3 g/dL 30.5 - 36.0 g/dL [facility] MCV (RBC) [Entitic vol] 96.7 fL 80.0 - 100.0 fL [facility] Nucleated RBC (Bld) [#/Vol] NINF [facility] Platelet mean volume (Bld) [Entitic vol] 10.6 fL 9.0 - 12.7 fL [facility] Platelets (Bld) [#/Vol] 265 10*3/uL [facility] RBC (Bld) [#/Vol] 4.29 10*6/uL 3.90 - 5.2 0 m/uL [facility] WBC (Bld) [#/Vol] 12.61 10*3/uL [facility] Erythrocyte distribution width (RBC) [Ratio] 14.5 % Normal 11.5-15.0 [facility] Comment on above: Order Comment: Speci men Type: BLOOD SPECIMENOrdering Facility: [facility] Address: [address] [place] [address] Performed By: #### 5 8410-2 ####[facility] [id number] [place] [address] Hematocrit (Bld) [Volume fraction] 41.5 % Normal 36.0-46.0 [facility] Comment on above: Order Comment: Speci men Type: BLOOD SPECIMENOrdering Facility: [facility] Address: [address] [place] [address] Performed By: #### 5 8410-2 ####[facility] [id number] [place] [address] Hemoglobin (Bld) [Mass/Vol] 13.8 g/dL Normal 11.5-15.5 [facility] Comment on above: Order Comment: Speci men Type: BLOOD SPECIMENOrdering Facility: [facility] Address: [address] [place] [address] Performed By: #### 5 8410-2 ####[facility] [id number] [place] [address] MCH (RBC) [Entitic mass] 32.2 pg Normal 26.0-34.0 [facility] Comment on above: Order Comment: Speci men Type: BLOOD SPECIMENOrdering Facility: [facility] Address: [address] [place] [address] Performed By: #### 5 8410-2 ####[facility] [id number] [place] [address] MCHC (RBC) [Mass/Vol] 33.3 g/dL Normal 30.5-36.0 [facility] Comment on above: Order Comment: Speci men Type: BLOOD SPECIMENOrdering Facility: [facility] Address: [address] [place] [address] Performed By: #### 5 8410-2 ####[facility]CL[facility] [id number] [place] [address] MCV (RBC) [Entitic vol] 96.7 fL Normal 80.0-100.0 [facility] Comment on above: Order Comment: Speci men Type: BLOOD SPECIMENOrdering Facility: [facility] Address: [address] [place] [address] Performed By: #### 5 8410-2 ####[facility] [id number] [place] [address] Nucleated RBC (Bld) [#/Vol] 10*3/uL Normal <0.01 [facility] Comment on above: Order Comment: Speci men Type: BLOOD SPECIMENOrdering Facility: [facility] Address: [address] [place] [address] Performed By: #### 5 8410-2 ####[facility]CL[facility] [id number] [place] [address] Platelet mean volume (Bld) [Entitic vol] 10.6 fL Normal 9.0-12.7 [facility] Comment on above: Order Comment: Speci men Type: BLOOD SPECIMENOrdering Facility: [facility] Address: [address] [place] [address] Performed By: #### 5 8410-2 ####[facility]CL[facility] [id number] [place] [address] Platelets (Bld) [#/Vol] 265 10*3/uL Normal 150-400 [facility] Comment on above: Order Comment: Speci men Type: BLOOD SPECIMENOrdering Facility: [facility] Address: [address] [place] [address] Performed By: #### 5 8410-2 ####[facility] [id number] [place] [address] RBC (Bld) [#/Vol] 4.29 10*6/uL Normal 3.90-5.20 [facility] Comment on above: Order Comment: Speci men Type: BLOOD SPECIMENOrdering Facility: [facility] Address: [address] [place] [address] Performed By: #### 5 8410-2 ####[facility] LABCLIA [id number] [place] [address] WBC (Bld) [#/Vol] 12.61 10*3/uL High 3.70-11.00 [facility] Comment on above: Order Comment: Speci men Type: BLOOD SPECIMENOrdering Facility: [facility] Address: [address] [place] [address] Performed By: #### 5 8410-2 ####[facility] LABCLIA [id number] [place] [address] [facility] CRP [Mass/Vol] mg/L Normal <0.9 [facility] Comment on above: Order Comment: Speci men Type: BLOOD SPECIMENOrdering Facility: [facility] Address: [address] [place] [address] Performed By: #### 2 132-9, 1988- ####[facility] LABCLIA [id number] [place] [id number] [facility] Comprehensive metabolic 2000 panelOrdered By: Josse Merlos on 01-11-2025 Albumin [Mass/Vol] 3.9 g/dL 3.9 - 4.9 g/dL [facility] ALP [Catalytic activity/Vol] 83 U/L 34 - 123 U/L [facility] ALT [Catalytic activity/Vol] 42 U/L High 7 - 38 U/L [facility] Anion gap [Moles/Vol] 10 mmol/L 8 - 15 mmol/L [facility] AST [Catalytic activity/Vol] 22 U/L 13 - 35 U/L [facility] Bilirubin [Mass/Vol] 0.2 mg/dL 0.2 - 1 .3 mg/dL [facility] Calcium [Mass/Vol] 9.7 mg/dL 8.5 - 10. 2 mg/dL [facility] Chloride [Moles/Vol] 103 mmol/L 98 - 10 7 mmol/L [facility] CO2 [Moles/Vol] 23 mmol/L 22 - 30 mmol/L [facility] Creatinine [Mass/Vol] 0.50 mg/dL Low 0.58 - 0.96 mg/dL [facility] GFR/1.73 sq M.predicted among non-blacks MDRD (S/P/Bld) [Vol rate/Area] 119 mL/min/{1.73_m2} - PINF [facility] Comment on above: Estimated Glomerular Filtration [...] not accurately reflect actual GFR. Glucose [Mass/Vol] 221 mg/dL High 74 - 99 mg/dL [facility] Comment on above: The [place] Di[employer] Association (ADA) provides guidance for [...] Standards of Medical Care in Diabetes 2016, [place] [employer]. Diabetes Care. 2016.39(Suppl 1). Interpretation and review of laboratory results Abnormal [facility] Potassium [Moles/Vol] 4.1 mmol/L 3.7 - 5.1 mmol/L [facility] Protein [Mass/Vol] 6.8 g/dL 6.3 - 8.0 g/dL [facility] Sodium [Moles/Vol] 136 mmol/L 136 - 144 mmol/L [facility] Urea nitrogen [Mass/Vol] 15 mg/dL 7 - 21 mg/dL [facility] Comprehensive metabolic 2000 panelon 01-11-2025 Albumin [Mass/Vol] 3.9 g/dL Normal 3.9-4.9 [facility] Comment on above: Order Comment: Speci men Type: BLOOD SPECIMENOrdering Facility: [facility] Address: [address] [place] [address] Performed By: #### 2 4323-8 ####[facility] LABCLIA [id number] [place] [address] ALP [Catalytic activity/Vol] 83 U/L Normal 34-123 [facility] Comment on above: Order Comment: Speci men Type: BLOOD SPECIMENOrdering Facility: [facility] Address: [address] [place] [address] Performed By: #### 2 4323-8 ####[facility] LABCLIA [id number] [place] [address] ALT [Catalytic activity/Vol] 42 U/L High 7-38 [facility] Comment on above: Order Comment: Speci men Type: BLOOD SPECIMENOrdering Facility: [facility] Address: [address] [place] [address] Performed By: #### 2 4323-8 ####[facility] LABCLIA [id number] [place] [address] Anion gap [Moles/Vol] 10 mmol/L Normal 8-15 [facility] Comment on above: Order Comment: Speci men Type: BLOOD SPECIMENOrdering Facility: [facility] Address: [address] [place] [address] Performed By: #### 2 4323-8 ####[facility] LABCLIA [id number] [place] [address] AST [Catalytic activity/Vol] 22 U/L Normal 13-35 [facility] Comment on above: Order Comment: Speci men Type: BLOOD SPECIMENOrdering Facility: [facility] Address: [address] [place] [address] Performed By: #### 2 4323-8 ####[facility] LABCLIA [id number] [place] [address] Bilirubin [Mass/Vol] 0.2 mg/dL Normal 0.2-1.3 [facility] Comment on above: Order Comment: Speci men Type: BLOOD SPECIMENOrdering Facility: [facility] Address: [address] [place] [address] Performed By: #### 2 4323-8 ####[facility] LABCLIA [id number] [place] [address] Calcium [Mass/Vol] 9.7 mg/dL Normal 8.5-10.2 [facility] Comment on above: Order Comment: Speci men Type: BLOOD SPECIMENOrdering Facility: [facility] Address: [address] [place] [address] Performed By: #### 2 4323-8 ####[facility] LABCLIA [id number] [place] [address] Chloride [Moles/Vol] 103 mmol/L Normal 98-107 [facility] Comment on above: Order Comment: Speci men Type: BLOOD SPECIMENOrdering Facility: [facility] Address: [address] [place] [address] Performed By: #### 2 4323-8 ####[facility] LABCLIA [id number] [place] [address] CO2 [Moles/Vol] 23 mmol/L Normal 22-30 [facility] Comment on above: Order Comment: Speci men Type: BLOOD SPECIMENOrdering Facility: [facility] Address: [address] [place] [address] [place] [address] Performed By: #### 2 4323-8 ####[facility] LABCLIA [id number] [place] [address] Creatinine [Mass/Vol] 0.50 mg/dL Low 0.58-0.96 [facility] Comment on above: Order Comment: Speci men Type: BLOOD SPECIMENOrdering Facility: [facility] Address: [address] [place] [address] Performed By: #### 2 4323-8 ####[facility] LABCLIA [id number] [place] [address] eGFRcr SerPlBld CKD-EPI 2020 119 mL/min/1.73m??? Normal >=60 [facility] Comment on above: Order Comment: Speci men Type: BLOOD SPECIMENOrdering Facility: [facility] Address: [address] [place] [address] Result Comment: Erin mated Glomerular Filtration Rate [...] actual GFR. Performed By: #### 2 4323-8 ####[facility] LABCLIA [id number] [place] [address] Glucose [Mass/Vol] 221 mg/dL High 74-99 [facility] Comment on above: Order Comment: Speci men Type: BLOOD SPECIMENOrdering Facility: [facility] Address: [address] [place] [address] Result Comment: The [place] Diabetes Association (ADA) provides guidance for cutoff [...] Standards of Medical Care in Diabetes 2016, [place] Diabetes Association. Diabetes Care. 2016.39(Suppl 1). Performed By: #### 2 4323-8 ####[facility] LABCLIA [id number] [place] [address] Potassium [Moles/Vol] 4.1 mmol/L Normal 3.7-5.1 [facility] Comment on above: Order Comment: Speci men Type: BLOOD SPECIMENOrdering Facility: [facility] Address: [address] [place] [address] Performed By: #### 2 4323-8 ####[facility] LABCLIA [id number] [place] [address] Protein [Mass/Vol] 6.8 g/dL Normal 6.3-8.0 [facility] Comment on above: Order Comment: Speci men Type: BLOOD SPECIMENOrdering Facility: [facility] Address: [address] [place] [address] Performed By: #### 2 4323-8 ####[facility] LABCLIA [id number] [place] [address] Sodium [Moles/Vol] 136 mmol/L Normal 136-144 [facility] Comment on above: Order Comment: Speci men Type: BLOOD SPECIMENOrdering Facility: [facility] Address: [address] [place] [address] Performed By: #### 2 4323-8 ####[facility] LABCLIA [id number] [place] [address] Urea nitrogen [Mass/Vol] 15 mg/dL Normal 7-21 [facility] Comment on above: Order Comment: Speci men Type: BLOOD SPECIMENOrdering Facility: [facility] Address: [address] [place] [address] Performed By: #### 2 4323-8 ####[facility] LABCLIA [id number] [place] [address] ESR Westergren method (Bld) [Velocity]on 01-11-2025 ESR (Bld) [Velocity] 34 mm/h High 0-20 [facility] Comment on above: Order Comment: Speci men Type: BLOOD SPECIMENOrdering Facility: [facility] Address: [address] [place] [address] Performed By: #### 4 537-7 ####[facility] LABCLIA [id number] [place] [address] [place] HBV core Ab Ser Qlon 025 HBV core Ab Ql (S) Negative Normal Negative [facility] Comment on above: Order Comment: Speci men Type: BLOOD SPECIMENOrdering Facility: [facility] Address: [address] [place] [address] Result Comment: No e vidence of current or past infection with Hepatitis B virus. Should recent infection be suspected, repeat testing may be considered 3-4 weeks after this draw. Performed By: #### 5 195-3, 94134-0, 97213-3 ####[facility] LABCLIA [id number] [address] [place] HBV surface Ab Ql (S)on 12-23 HBV surface Ab Qn (S) 177.77 mIU/mL Normal [facility] Comment on above: Order Comment: Speci men Type: BLOOD SPECIMENOrdering Facility: [facility] Address: [address] [place] [address] Result Comment: <8 m IU/mL: No serological evidence of immunity to Hepatitis B Virus.>/= 8 to <12 mIU/mL: No serological evidence of immunity to Hepatitis B Virus.>/= 12 mIU/mL: Consistent with serological evidence of immunity to Hepatitis B Virus. Performed By: #### 5 195-3, 21174-7, 17760-8 ####[facility] LABCLIA [id number] [address] [address] [place] HBV surface Ab Ser Qlon 12-23 HBV surface Ab Ql (S) Positive Normal [facility] Comment on above: Order Comment: Speci men Type: BLOOD SPECIMENOrdering Facility: [facility] Address: [address] [place] [address] Result Comment: Cons istent with serological evidence of immunity to Hepatitis B Virus. Performed By: #### 5 195-3, 24775-9, 89120-5 ####[facility] LABCLIA [id number] [place] [address] [place] HBV surface Ag Ser Qlon 12-23 HBV surface Ag Ql (S) Negative Normal Negative [facility] Comment on above: Order Comment: Speci men Type: BLOOD SPECIMENOrdering Facility: [facility] Address: [address] [place] [address] Performed By: #### 5 195-3, 55405-8, 86151-6 ####[facility] LABIA [id number] [place] [address] [place] HCV Ab Ser Qlon 01-11-2025 HCV Ab Ql (S) Negative Normal Negative [facility] Comment on above: Order Comment: Speci men Type: BLOOD SPECIMENOrdering Facility: [facility] Address: [address] [place] [address] Result Comment: The result suggests no evidence of infection with Hepatitis C virus. Should recent infection be suspected, repeat testing may be considered 4-6 weeks after this draw. Performed By: #### 1 6128-1 ####[facility] [id number] [place] [address] [place] Vit B12 SerPl-mCncon 025 Cobalamin (Vitamin B12) [Mass/Vol] 710 pg/mL Normal 232-1245 [facility] Comment on above: Order Comment: Speci men Type: BLOOD SPECIMENOrdering Facility: [facility] Address: [address] [place] [address] Performed By: #### 2 132-9, 1987- ####[facility] LABCLIA [id number] [place] [address] [place] CBC W Auto Differential pane l (Bld)on 11-29-2024 Basophils (Bld) [#/Vol] 0.09 10*3/uL Normal <0.11 [facility] Comment on above: Order Comment: Speci men Type: BLOOD SPECIMENOrdering Facility: [facility] Address: [address] [place] [address] Performed By: #### 5 7021-8 ####[facility] LABCLIA [id number] [place] [address] Basophils/100 WBC (Bld) 0.7 % Normal [facility] Comment on above: Order Comment: Speci men Type: BLOOD SPECIMENOrdering Facility: [facility] Address: [address] [place] [address] Performed By: #### 5 7021-8 ####[facility] LABCLIA [id number] [place] [address] Differential cell count method Nom (Bld) Auto Normal [facility] Comment on above: Order Comment: Speci men Type: BLOOD SPECIMENOrdering Facility: [facility] Address: [address] [place] [address] Performed By: #### 5 7021-8 ####[facility] LABCLIA [id number] [place] [address] Eosinophils (Bld) [#/Vol] 0.09 10*3/uL Normal <0.46 [facility] Comment on above: Order Comment: Speci men Type: BLOOD SPECIMENOrdering Facility: [facility] Address: [address] [place] [address] Performed By: #### 5 7021-8 ####[facility] LABCLIA [id number] [place] [address] Eosinophils/100 WBC (Bld) 0.7 % Normal [facility] Comment on above: Order Comment: Speci men Type: BLOOD SPECIMENOrdering Facility: [facility] Address: [address] [place] [address] Performed By: #### 5 7021-8 ####[facility] LABCLIA [id number] [place] [address] Erythrocyte distribution width (RBC) [Ratio] 14.8 % Normal 11.5-15.0 [facility] Comment on above: Order Comment: Speci men Type: BLOOD SPECIMENOrdering Facility: [facility] Address: [address] [place] [address] Performed By: #### 5 7021-8 ####[facility] LABCLIA [id number] [place] [address] Hematocrit (Bld) [Volume fraction] 42.9 % Normal 36.0-46.0 [facility] Comment on above: Order Comment: Speci men Type: BLOOD SPECIMENOrdering Facility: [facility] Address: [address] [place] [address] Performed By: #### 5 7021-8 ####[facility] LABCLIA [id number] [place] [address] Hemoglobin (Bld) [Mass/Vol] 14.0 g/dL Normal 11.5-15.5 [facility] Comment on above: Order Comment: Speci men Type: BLOOD SPECIMENOrdering Facility: [facility] Address: [address] [place] [address] Performed By: #### 5 7021-8 ####[facility] LABCLIA [id number] [place] [address] Immature granulocytes (Bld) [#/Vol] 0.18 10*3/uL High <0.10 [facility] Comment on above: Order Comment: Speci men Type: BLOOD SPECIMENOrdering Facility: [facility] Address: [address] [place] [address] Performed By: #### 5 7021-8 ####[facility] LABCLIA [id number] [place] [address] Immature granulocytes/100 WBC (Bld) 1.5 % Normal [facility] Comment on above: Order Comment: Speci men Type: BLOOD SPECIMENOrdering Facility: [facility] Address: [address] [place] [address] Performed By: #### 5 7021-8 ####[facility] LABCLIA [id number] [place] [address] Lymphocytes (Bld) [#/Vol] 1.99 10*3/uL Normal 1.00-4.00 [facility] Comment on above: Order Comment: Speci men Type: BLOOD SPECIMENOrdering Facility: [facility] Address: [address] [place] [address] Performed By: #### 5 7021-8 ####[facility] LABCLIA [id number] [place] [address] Lymphocytes/100 WBC (Bld) 16.4 % Normal [facility] Comment on above: Order Comment: Speci men Type: BLOOD SPECIMENOrdering Facility: [facility] Address: [address] [place] [address] Performed By: #### 5 7021-8 ####[facility] LABCLIA [id number] [place] [address] MCH (RBC) [Entitic mass] 31.7 pg Normal 26.0-34.0 [facility] Comment on above: Order Comment: Speci men Type: BLOOD SPECIMENOrdering Facility: [facility] Address: [address] [place] [address] Performed By: #### 5 7021-8 ####[facility] LABCLIA [id number] [place] [address] MCHC (RBC) [Mass/Vol] 32.6 g/dL Normal 30.5-36.0 [facility] Comment on above: Order Comment: Speci men Type: BLOOD SPECIMENOrdering Facility: [facility] Address: [address] [place] [address] Performed By: #### 5 7021-8 ####[facility] LABCLIA [id number] [place] [address] MCV (RBC) [Entitic vol] 97.1 fL Normal 80.0-100.0 [facility] Comment on above: Order Comment: Speci men Type: BLOOD SPECIMENOrdering Facility: [facility] Address: [address] [place] [address] Performed By: #### 5 7021-8 ####[facility] LABCLIA [id number] [place] [address] Monocytes (Bld) [#/Vol] 0.67 10*3/uL Normal <0.87 [facility] Comment on above: Order Comment: Speci men Type: BLOOD SPECIMENOrdering Facility: [facility] Address: [address] [place] [address] Performed By: #### 5 7021-8 ####[facility] LABIA [id number] [place] [address] Monocytes/100 WBC (Bld) 5.5 % Normal [facility] Comment on above: Order Comment: Speci men Type: BLOOD SPECIMENOrdering Facility: [facility] Address: [address] [place] [address] Performed By: #### 5 7021-8 ####[facility] LABCLIA [id number] [place] [address] Neutrophils (Bld) [#/Vol] 9.15 10*3/uL High 1.45-7.50 [facility] Comment on above: Order Comment: Speci men Type: BLOOD SPECIMENOrdering Facility: [facility] Address: [address] [place] [address] Performed By: #### 5 7021-8 ####[facility] LABCLIA [id number] [place] [address] Neutrophils/100 WBC (Bld) 75.2 % Normal [facility] Comment on above: Order Comment: Speci men Type: BLOOD SPECIMENOrdering Facility: [facility] Address: [address] [place] [address] Performed By: #### 5 7021-8 ####[facility] LABCLIA [id number] [place] [address] Nucleated RBC (Bld) [#/Vol] 10*3/uL Normal <0.01 [facility] Comment on above: Order Comment: Speci men Type: BLOOD SPECIMENOrdering Facility: [facility] Address: [address] [place] [address] Performed By: #### 5 7021-8 ####[facility] LABCLIA [id number] [place] [address] Nucleated RBC/100 WBC (Bld) [Ratio] 0.0 /100 WBC Normal [facility] Comment on above: Order Comment: Speci men Type: BLOOD SPECIMENOrdering Facility: [facility] Address: [address] [place] [address] Performed By: #### 5 7021-8 ####[facility] LABCLIA [id number] [place] [address] Platelet mean volume (Bld) [Entitic vol] 9.7 fL Normal 9.0-12.7 [facility] Comment on above: Order Comment: Speci men Type: BLOOD SPECIMENOrdering Facility: [facility] Address: [address] [place] [address] Performed By: #### 5 7021-8 ####[facility] LABCLIA [id number] [place] [address] Platelets (Bld) [#/Vol] 281 10*3/uL Normal 150-400 [facility] Comment on above: Order Comment: Speci men Type: BLOOD SPECIMENOrdering Facility: [facility] Address: [address] [place] [address] Performed By: #### 5 7021-8 ####[facility] LABCLIA [id number] [place] [address] RBC (Bld) [#/Vol] 4.42 10*6/uL Normal 3.90-5.20 [facility] Comment on above: Order Comment: Speci men Type: BLOOD SPECIMENOrdering Facility: [facility] Address: [address] [place] [address] Performed By: #### 5 7021-8 ####[facility] LABIA [id number] [place] [address] WBC (Bld) [#/Vol] 12.17 10*3/uL High 3.70-11.00 [facility] Comment on above: Order Comment: Speci men Type: BLOOD SPECIMENOrdering Facility: [facility] Address: [address] [place] [address] Performed By: #### 5 7021-8 ####[facility] LABIA [id number] [place] [address] CNOVSPon 11-29-2024 CNOVSP Normal [facility] metabolic 2000 panelon 11-29-2024 Albumin [Mass/Vol] 4.1 g/dL Normal 3.9-4.9 [facility] Comment on above: Order Comment: Speci men Type: BLOOD SPECIMENOrdering Facility: [facility] Address: [address] [place] [address] Performed By: #### 2 4323-8 ####[facility] LABIA [id number] [place] [address] ALP [Catalytic activity/Vol] 61 U/L Normal 34-123 [facility] Comment on above: Order Comment: Speci men Type: BLOOD SPECIMENOrdering Facility: [facility] Address: [address] [place] [address] Performed By: #### 2 4323-8 ####[facility] LABCLIA [id number] [place] [address] ALT [Catalytic activity/Vol] 39 U/L High 7-38 [facility] Comment on above: Order Comment: Speci men Type: BLOOD SPECIMENOrdering Facility: [facility] Address: [address] [place] [address] Performed By: #### 2 4323-8 ####[facility] LABCLIA [id number] [place] [address] Anion gap [Moles/Vol] 13 mmol/L Normal 8-15 [facility] Comment on above: Order Comment: Speci men Type: BLOOD SPECIMENOrdering Facility: [facility] Address: [address] [place] [address] Performed By: #### 2 4323-8 ####[facility] LABCLIA [id number] [place] [address] AST [Catalytic activity/Vol] 16 U/L Normal 13-35 [facility] Comment on above: Order Comment: Speci men Type: BLOOD SPECIMENOrdering Facility: [facility] Address: [address] [place] [address] Performed By: #### 2 4323-8 ####[facility] LABCLIA [id number] [place] [address] Bilirubin [Mass/Vol] 0.2 mg/dL Normal 0.2-1.3 [facility] Comment on above: Order Comment: Speci men Type: BLOOD SPECIMENOrdering Facility: [facility] Address: [address] [place] [address] Performed By: #### 2 4323-8 ####[facility] LABCLIA [id number] [place] [address] Calcium [Mass/Vol] 9.7 mg/dL Normal 8.5-10.2 [facility] Comment on above: Order Comment: Speci men Type: BLOOD SPECIMENOrdering Facility: [facility] Address: [address] [place] [address] Performed By: #### 2 4323-8 ####[facility] LABCLIA [id number] [place] [address] Chloride [Moles/Vol] 102 mmol/L Normal 98-107 [facility] Comment on above: Order Comment: Speci men Type: BLOOD SPECIMENOrdering Facility: [facility] Address: [address] [place] [address] Performed By: #### 2 4323-8 ####[facility] LABCLIA [id number] [place] [address] CO2 [Moles/Vol] 23 mmol/L Normal 22-30 [facility] Comment on above: Order Comment: Speci men Type: BLOOD SPECIMENOrdering Facility: [facility] Address: [address] [place] [address] Performed By: #### 2 4323-8 ####[facility] LABCLIA [id number] [place] [address] Creatinine [Mass/Vol] 0.58 mg/dL Normal 0.58-0.96 [facility] Comment on above: Order Comment: Speci men Type: BLOOD SPECIMENOrdering Facility: [facility] Address: [address] [place] [address] Performed By: #### 2 4323-8 ####[facility] LABCLIA [id number] [place] [address] Creatinine and Glomerular filtration rate.predicted panel (S/P/Bld) 115 mL/min/1.73m??? Normal >=60 [facility] Comment on above: Order Comment: Speci men Type: BLOOD SPECIMENOrdering Facility: [facility] Address: [address] [place] [address] Result Comment: Erin mated Glomerular Filtration Rate [...] actual GFR. Performed By: #### 2 4323-8 ####[facility] LABCLIA [id number] [place] [address] Glucose [Mass/Vol] 233 mg/dL High 74-99 [facility] Comment on above: Order Comment: Semaj men Type: BLOOD SPECIMENOrdering Facility: [facility] Address: [address] [place] [address] Result Comment: The [place] Diabetes Association (ADA) provides guidance for cutoff [...] Standards of Medical Care in Diabetes 2016, [place] [employer]. Diabetes Care. 2016.39(Suppl 1). Performed By: #### 2 4323-8 ####[facility] LABCLIA [id number] [place] [address] Potassium [Moles/Vol] 4.0 mmol/L Normal 3.7-5.1 [facility] Comment on above: Order Comment: Semaj cortés Type: BLOOD SPECIMENOrdering Facility: [facility] Address: [address] [place] [address] Performed By: #### 2 4323-8 ####[facility] LABCLIA [id number] [place] [address] Protein [Mass/Vol] 7.0 g/dL Normal 6.3-8.0 [facility] Comment on above: Order Comment: Leolai men Type: BLOOD SPECIMENOrdering Facility: [facility] Address: [address] [place] [address] Performed By: #### 2 4323-8 ####[facility] LABCLIA [id number] [place] [address] Sodium [Moles/Vol] 138 mmol/L Normal 136-144 [facility] Comment on above: Order Comment: Speci men Type: BLOOD SPECIMENOrdering Facility: [facility] Address: [address] [place] [address] Performed By: #### 2 4323-8 ####[facility] LABCLIA [id number] [place] [address] Urea nitrogen [Mass/Vol] 16 mg/dL Normal 7-21 [facility] Comment on above: Order Comment: Speci men Type: BLOOD SPECIMENOrdering Facility: [facility] Address: [address] [place] [address] Performed By: #### 2 4323-8 ####[facility] LABCLIA [id number] [place] [address] Ferritin SerPl-mCncon 2024 Ferritin [Mass/Vol] 63.6 ng/mL Normal 14.7-205.1 [facility] Comment on above: Order Comment: Speci men Type: BLOOD SPECIMENOrdering Facility: [facility] Address: [address] [place] [address] Performed By: #### 5 0190-8, 2284-8, 2276-4, 2132-9 ####[facility] LABCLIA [id number] [place] [address] [place] Folate SerPl-mCncon 11-30-19 25 Folate [Mass/Vol] ng/mL Normal >4.7 [facility] Comment on above: Order Comment: Speci men Type: BLOOD SPECIMENOrdering Facility: [facility] Address: [address] [place] [address] Result Comment: A re sult of > 20 ng/mL is not necessarily indicative of a pathologic or treatable condition: it reflects a limitation of the test methodology.Assay reference range: 4.8 to 24.2 ng/mL. Suitable for detection of folate deficiency.Reference:Folate III (Folate III) [package insert V 1.0 [place]ese]. [facility], [place], [place]: March 2015. Performed By: #### 5 0190-8, 2284-8, 2276-4, 2132-9 ####[facility] LABCLIA [id number] [place] [address] [place] IMMUNOGLOBULINS,IGG,IGA,IGMo n 11-29-2024 IgA [Mass/Vol] 169 mg/dL Normal 70-400 [facility] Comment on above: Order Comment: Speci men Type: BLOOD SPECIMENOrdering Facility: [facility] Address: [address] [place] [address] Performed By: #### S ERIMM ####[facility] LABCLIA [id number] [place] [address] [place] IgG [Mass/Vol] 596 mg/dL Low 700-1600 [facility] Comment on above: Order Comment: Speci men Type: BLOOD SPECIMENOrdering Facility: [facility] Address: [address] [place] [address] Performed By: #### S ERIMM ####[facility] LABCLIA [id number] [place] [address] [place] IgM [Mass/Vol] 410 mg/dL High 40-230 [facility] Comment on above: Order Comment: Speci men Type: BLOOD SPECIMENOrdering Facility: [facility] Address: [address] [place] [address] Performed By: #### S ERIMM ####[facility] LABCLIA [id number] [place] [id number] [place] Iron and Iron binding capaci ty panelon 11-29-2024 Iron [Mass/Vol] 154 ug/dL Normal 41-186 [facility] Comment on above: Order Comment: Speci men Type: BLOOD SPECIMENOrdering Facility: [facility] Address: [address] [place] [address] Performed By: #### 5 0190-8, 2283-8, 2275-08, 2132-01 ####[facility] LABCLIA [id number] [address] [address] [place] Iron binding capacity [Mass/Vol] 363 ug/dL Normal 232-386 [facility] Comment on above: Order Comment: Speci men Type: BLOOD SPECIMENOrdering Facility: [facility] Address: [address] [place], [place] [address] Performed By: #### 5 0190-8, 2283-8, 2275-08, 2132-01 ####[facility] LABIA [id number] [address] [address] [place] Iron/TIBC [Molar ratio] 42.4 % Normal 15.0-57.0 [facility] Comment on above: Order Comment: Speci men Type: BLOOD SPECIMENOrdering Facility: [facility] Address: [address] [place], [place] [address] Performed By: #### 5 0190-8, 2283-8, 2275-08, 2132-01 ####[facility] LABIA [id number] [address] [address] [place] Vit B12 [facility]2 025 Cobalamin (Vitamin B12) [Mass/Vol] 775 pg/mL Normal 232-1245 [facility] Comment on above: Order Comment: Speci men Type: BLOOD SPECIMENOrdering Facility: [facility] Address: [address] [address] Performed By: #### 5 0190-8, 2283-8, 2275-08, 2132-01 ####[facility] LABIA [id number] [address] [address] [place] CNPNon 11-20-2024 CNPN Normal [facility] CNPNon 11-15-2024 CNPN Normal [facility] CNPNon 10-06-2024 CNPN Normal [facility] 25(OH)D3 SerPl-mCncon 2024 25-hydroxyvitamin D3 [Mass/Vol] 30.9 ng/mL Low 31.0-80.0 [facility] Comment on above: Order Comment: Speci men Type: BLOOD SPECIMENOrdering Facility: [facility] Address: [address] [place] [address] Result Comment: Clas sification of 25 [place] Vitamin D status:Deficiency/Insufficiency: < or = 30 ng/ml.Sufficiency/Optimal Levels: 31-80 ng/mLToxicity: > 100 ng/mL.Test performed by chemiluminescent immunoassay. Performed By: #### 1 989-3 ####[facility] LABCLIA [id number] [address] [place] [facility] 25-hydroxyvitamin D3 [Mass/V ol]on 10-02-2024 Interpretation and review of laboratory results Abnormal [facility] The reference range interval was based on an analysis of samples from healthy adults and may not pertain to children from 0-18 years old. [facility] C-REACTIVE PROTEINon 025 CRP [Mass/Vol] mg/dL NINF - 0.9 mg/dL [facility] CBC panel Auto (Bld)on 10-02 Erythrocyte distribution width (RBC) [Ratio] 16.2 % High 11.5 - 15.0 % [facility] Hematocrit (Bld) [Volume fraction] 41.3 % 36.0 - 46.0 % [facility] Hemoglobin (Bld) [Mass/Vol] 13.7 g/dL 11.5 - 15.5 g/dL [facility] Interpretation and review of laboratory results Abnormal [facility] MCH (RBC) [Entitic mass] 31.1 pg 26.0 - 34.0 pg [facility] MCHC (RBC) [Mass/Vol] 33.2 g/dL 30.5 - 36.0 g/dL [facility] MCV (RBC) [Entitic vol] 93.7 fL 80.0 - 100.0 fL [facility] Nucleated RBC (Bld) [#/Vol] NINF [facility] Platelet mean volume (Bld) [Entitic vol] 10.1 fL 9.0 - 12.7 fL [facility] Platelets (Bld) [#/Vol] 265 10*3/uL [facility] RBC (Bld) [#/Vol] 4.41 10*6/uL 3.90 - 5.2 0 m/uL [facility] WBC (Bld) [#/Vol] 10.07 10*3/uL [facility] Erythrocyte distribution width (RBC) [Ratio] 16.2 % High 11.5-15.0 [facility] Comment on above: Order Comment: Speci men Type: BLOOD SPECIMENOrdering Facility: [facility] Address: [address] [place] [address] Performed By: #### 5 8410-2 ####[facility] LABCLIA [id number] [place] [address] Hematocrit (Bld) [Volume fraction] 41.3 % Normal 36.0-46.0 [facility] Comment on above: Order Comment: Speci men Type: BLOOD SPECIMENOrdering Facility: [facility] Address: [address] [place] [address] Performed By: #### 5 8410-2 ####[facility] LABCLIA [id number] [place] [address] Hemoglobin (Bld) [Mass/Vol] 13.7 g/dL Normal 11.5-15.5 [facility] Comment on above: Order Comment: Speci men Type: BLOOD SPECIMENOrdering Facility: [facility] Address: [address] [place] [address] Performed By: #### 5 8410-2 ####[facility] LABIA [id number] [place] [address] MCH (RBC) [Entitic mass] 31.1 pg Normal 26.0-34.0 [facility] Comment on above: Order Comment: Speci men Type: BLOOD SPECIMENOrdering Facility: [facility] Address: [address] [place] [address] Performed By: #### 5 8410-2 ####[facility] LABCLIA [id number] [place] [address] MCHC (RBC) [Mass/Vol] 33.2 g/dL Normal 30.5-36.0 [facility] Comment on above: Order Comment: Speci men Type: BLOOD SPECIMENOrdering Facility: [facility] Address: [address] [place] [address] Performed By: #### 5 8410-2 ####[facility] LABCLIA [id number] [place] [address] MCV (RBC) [Entitic vol] 93.7 fL Normal 80.0-100.0 [facility] Comment on above: Order Comment: Speci men Type: BLOOD SPECIMENOrdering Facility: [facility] Address: [address] [place] [address] Performed By: #### 5 8410-2 ####[facility] LABCLIA [id number] [place] [address] Nucleated RBC (Bld) [#/Vol] 10*3/uL Normal <0.01 [facility] Comment on above: Order Comment: Speci men Type: BLOOD SPECIMENOrdering Facility: [facility] Address: [address] [place] [address] Performed By: #### 5 8410-2 ####[facility] LABCLIA [id number] [place] [address] Platelet mean volume (Bld) [Entitic vol] 10.1 fL Normal 9.0-12.7 [facility] Comment on above: Order Comment: Speci men Type: BLOOD SPECIMENOrdering Facility: [facility] Address: [address] [place] [address] Performed By: #### 5 8410-2 ####[facility] LABCLIA [id number] [place] [address] Platelets (Bld) [#/Vol] 265 10*3/uL Normal 150-400 [facility] Comment on above: Order Comment: Speci men Type: BLOOD SPECIMENOrdering Facility: [facility] Address: [address] [place] [address] Performed By: #### 5 8410-2 ####[facility] LABCLIA [id number] [place] [address] RBC (Bld) [#/Vol] 4.41 10*6/uL Normal 3.90-5.20 [facility] Comment on above: Order Comment: Speci men Type: BLOOD SPECIMENOrdering Facility: [facility] Address: [address] [place] [address] Performed By: #### 5 8410-2 ####[facility] LABCLIA [id number] [place] [address] WBC (Bld) [#/Vol] 10.07 10*3/uL Normal 3.70-11.00 [facility] Comment on above: Order Comment: Speci men Type: BLOOD SPECIMENOrdering Facility: [facility] Address: [address] [place] [address] Performed By: #### 5 8410-2 ####[facility] LABCLIA [id number] [place] [address] CRP SerPl-ncon 10-02-2024 CRP [Mass/Vol] mg/L Normal <0.9 [facility] Comment on above: Order Comment: Speci men Type: BLOOD SPECIMENOrdering Facility: [facility] Address: [address] [place] [address] Performed By: #### 1 988-5 ####[facility] LABCLIA [id number] [place] [id number] [place] CRP [Mass/Vol]on 10-02-2024 Interpretation and review of laboratory results Normal [facility] Comprehensive metabolic 2000 panelOrdered By: Josse Merlos on 10-02-2024 Albumin [Mass/Vol] 3.9 g/dL 3.9 - 4.9 g/dL [facility] ALP [Catalytic activity/Vol] 61 U/L 34 - 123 U/L [facility] ALT [Catalytic activity/Vol] 41 U/L High 7 - 38 U/L [facility] Anion gap [Moles/Vol] 14 mmol/L 8 - 15 mmol/L [facility] AST [Catalytic activity/Vol] 18 U/L 13 - 35 U/L [facility] Bilirubin [Mass/Vol] 0.2 mg/dL 0.2 - 1 .3 mg/dL [facility] Calcium [Mass/Vol] 9.6 mg/dL 8.5 - 10. 2 mg/dL [facility] Chloride [Moles/Vol] 107 mmol/L 98 - 10 7 mmol/L [facility] CO2 [Moles/Vol] 20 mmol/L Low 22 - 30 mmol/L [facility] Creatinine [Mass/Vol] 0.59 mg/dL 0.58 - 0.96 mg/dL [facility] GFR/1.73 sq M.predicted among non-blacks MDRD (S/P/Bld) [Vol rate/Area] 115 mL/min/{1.73_m2} - PINF [facility] Comment on above: Estimated Glomerular Filtration [...] 216 mg/dL High 74 - 99 mg/dL [facility] Comment on above: The [place] Diab[employer] s Association (ADA) provides guidance for [...] Standards of Medical Care in Diabetes 2016, [place] [employer] Association. Diabetes Care. 2016.39(Suppl 1). Interpretation and review of laboratory results Abnormal [facility] Potassium [Moles/Vol] 4.1 mmol/L 3.7 - 5.1 mmol/L [facility] Protein [Mass/Vol] 6.8 g/dL 6.3 - 8.0 g/dL [facility] Sodium [Moles/Vol] 141 mmol/L 136 - 144 mmol/L [facility] Urea nitrogen [Mass/Vol] 19 mg/dL 7 - 21 mg/dL [facility] Comprehensive metabolic 2000 panelon 10-02-2024 Albumin [Mass/Vol] 3.9 g/dL Normal 3.9-4.9 [facility] Comment on above: Order Comment: Speci men Type: BLOOD SPECIMENOrdering Facility: [facility] Address: [address] [place] [address] Performed By: #### 2 4323-8 ####[facility] LABCLIA [id number] [place] [address] ALP [Catalytic activity/Vol] 61 U/L Normal 34-123 [facility] Comment on above: Order Comment: Speci men Type: BLOOD SPECIMENOrdering Facility: [facility] Address: [address] [place] [address] Performed By: #### 2 4323-8 ####[facility] LABCLIA [id number] [place] [address] ALT [Catalytic activity/Vol] 41 U/L High 7-38 [facility] Comment on above: Order Comment: Speci men Type: BLOOD SPECIMENOrdering Facility: [facility] Address: [address] [place] [address] Performed By: #### 2 4323-8 ####[facility] LABCLIA [id number] [place] [address] Anion gap [Moles/Vol] 14 mmol/L Normal 8-15 [facility] Comment on above: Order Comment: Speci men Type: BLOOD SPECIMENOrdering Facility: [facility] Address: [address] [place] [address] Performed By: #### 2 4323-8 ####[facility] LABCLIA [id number] [place] [address] AST [Catalytic activity/Vol] 18 U/L Normal 13-35 [facility] Comment on above: Order Comment: Speci men Type: BLOOD SPECIMENOrdering Facility: [facility] Address: [address] [place] [address] Performed By: #### 2 4323-8 ####[facility] LABCLIA [id number] [place] [address] Bilirubin [Mass/Vol] 0.2 mg/dL Normal 0.2-1.3 [facility] Comment on above: Order Comment: Speci men Type: BLOOD SPECIMENOrdering Facility: [facility] Address: [address] [place] [address] Performed By: #### 2 4323-8 ####[facility] LABCLIA [id number] [place] [address] Calcium [Mass/Vol] 9.6 mg/dL Normal 8.5-10.2 [facility] Comment on above: Order Comment: Speci men Type: BLOOD SPECIMENOrdering Facility: [facility] Address: [address] [place] [address] Performed By: #### 2 4323-8 ####[facility] LABCLIA [id number] [place] [address] Chloride [Moles/Vol] 107 mmol/L Normal 98-107 [facility] Comment on above: Order Comment: Speci men Type: BLOOD SPECIMENOrdering Facility: [facility] Address: [address] [place] [address] Performed By: #### 2 4323-8 ####[facility] LABCLIA [id number] [place] [address] CO2 [Moles/Vol] 20 mmol/L Low 22-30 [facility] Comment on above: Order Comment: Speci men Type: BLOOD SPECIMENOrdering Facility: [facility] Address: [address] [place] [id number] Performed By: #### 2 4323-8 ####[facility] LABCLIA [id number] [place] [address] Creatinine [Mass/Vol] 0.59 mg/dL Normal 0.58-0.96 [facility] Comment on above: Order Comment: Speci men Type: BLOOD SPECIMENOrdering Facility: [facility] Address: [address] [place] [address] Performed By: #### 2 4323-8 ####[facility] LABCLIA [id number] [place] [address] Creatinine and Glomerular filtration rate.predicted panel (S/P/Bld) 115 mL/min/1.73m??? Normal >=60 [facility] Comment on above: Order Comment: Speci men Type: BLOOD SPECIMENOrdering Facility: [facility] Address: [address] [place] [address] Result Comment: Erin mated Glomerular Filtration Rate [...] actual GFR. Performed By: #### 2 4323-8 ####[facility] LABCLIA [id number] [place] [address] Glucose [Mass/Vol] 216 mg/dL High 74-99 [facility] Comment on above: Order Comment: Speci men Type: BLOOD SPECIMENOrdering Facility: [facility] Address: [address] [place], [place] [address] Result Comment: The [place] Diabetes Association (ADA) provides guidance for cutoff [...] Standards of Medical Care in Diabetes 2016, [place] Diabetes Association. Diabetes Care. 2016.39(Suppl 1). Performed By: #### 2 4323-8 ####[facility] LABCLIA [id number] [place] [address] Potassium [Moles/Vol] 4.1 mmol/L Normal 3.7-5.1 [facility] Comment on above: Order Comment: Speci men Type: BLOOD SPECIMENOrdering Facility: [facility] Address: [address] [place] [address] Performed By: #### 2 4323-8 ####[facility] LABCLIA [id number] [place] [address] Protein [Mass/Vol] 6.8 g/dL Normal 6.3-8.0 [facility] Comment on above: Order Comment: Speci men Type: BLOOD SPECIMENOrdering Facility: [facility] Address: [address] [place] [address] Performed By: #### 2 4323-8 ####[facility] LABCLIA [id number] [place] [address] Sodium [Moles/Vol] 141 mmol/L Normal 136-144 [facility] Comment on above: Order Comment: Speci men Type: BLOOD SPECIMENOrdering Facility: [facility] Address: [address] [place] [address] Performed By: #### 2 4323-8 ####[facility] LABCLIA [id number] [place] [address] Urea nitrogen [Mass/Vol] 19 mg/dL Normal 7-21 [facility] Comment on above: Order Comment: Speci men Type: BLOOD SPECIMENOrdering Facility: [facility] Address: [address] [place] [address] Performed By: #### 2 4323-8 ####[facility] LABCLIA [id number] [place] [address] ESR Westergren method (Bld) [Velocity]on 10-02-2024 ESR (Bld) [Velocity] 28 mm/h High [facility] Interpretation and review of laboratory results Abnormal [facility] ESR (Bld) [Velocity] 28 mm/h High 0-20 [facility] Comment on above: Order Comment: Speci men Type: BLOOD SPECIMENOrdering Facility: [facility] Address: [address] [place] [address] Performed By: #### 4 537-7 ####[facility] LABCLIA [id number] [place] [id number] [place] VITAMIN D 25 HYDROXYon 10-02 25-hydroxyvitamin D3 [Mass/Vol] 30.9 ng/mL Low 31.0 - 80.0 ng/mL [facility] Comment on above: Classification of 25 [place] Vitamin D status: Deficiency/Insufficiency: < or = 30 ng/ml. Sufficiency/Optimal Levels: 31-80 ng/mL Toxicity: > 100 ng/mL. Test performed by chemiluminescent immunoassay. DNA EXTRACTION BLOODOrdered By: Dominga Araujo on 09-20-2024 CONCENTRATION (NG/UL) 189.3 ng/ul [facility] Total Yield 94.65 ug [facility] Comment on above: Specimens will be av ailable for 3 years from date of collection. To order testing on this specimen for [facility] patients, please place an [facility] order for DNA and RNA for Clinical Testing (SQNUCADD). To order for patients outside of the [facility] system, please request DNA and RNA for Clinical Testing, order code [email or web address]. If additional paperwork is required for testing, please email completed forms to . VOLUME (UL) OF DNA 500 uL [facility] CNOVon 09-19-2024 CNOV Normal [facility] DNA EXTRACTION BLOODon 09-19 CONCENTRATION (NG/UL) 189.3 ng/ul Normal [facility] Comment on above: Order Comment: Speci men Type: BLOOD SPECIMENOrdering Facility: [facility] Address: [address] [place] [address] Performed By: #### N UCBLD ####[facility] LIMSCLIA [id number] [place] [address] [place] TOTAL YIELD 94.65 ug Normal [facility] Comment on above: Order Comment: Speci men Type: BLOOD SPECIMENOrdering Facility: [facility] Address: [address] [place] [address] Result Comment: Spec imens will be available for 3 years from date of collection. To order testing on this specimen for [facility] patients, please place an [employer] order for DNA and RNA for Clinical Testing (SQNUCADD). To order for patients outside of the [facility] system, please request DNA and RNA for Clinical Testing, order code [email or web address].If additional paperwork is required for testing, please email completed forms to . Performed By: #### N UCBLD ####[facility] LIMSCLIA [id number] [place] [address] [place] VOLUME (UL) OF DNA 500 uL Normal [facility] Comment on above: Order Comment: Speci men Type: BLOOD SPECIMENOrdering Facility: [facility] Address: [address] [place] [address] Performed By: #### N UCBLD ####[facility] LIMSCLIA [id number] [place] [address] [place] CNPNon 09-18-2024 CNPN Normal [facility] [facility] CNPNon 09-13-2024 CNPN Normal [facility] CNOVSPon 09-06-2024 CNOVSP Normal [facility] CNPNon 09-06-2024 CNPN Normal [facility] IMMUNOGLOBULINS,IGG,IGA,IGMo n 09-06-2024 IgA [Mass/Vol] 163 mg/dL Normal 70-400 [facility] Comment on above: Order Comment: Speci men Type: BLOOD SPECIMENOrdering Facility: [facility] Address: [address] [place] [address] Performed By: #### S ERIMM ####[facility] LABCLIA [id number] [place] [address] [place] IgG [Mass/Vol] 599 mg/dL Low 700-1600 [facility] Comment on above: Order Comment: Speci men Type: BLOOD SPECIMENOrdering Facility: [facility] Address: [address] [place] [address] Performed By: #### S ERIMM ####[facility] LABCLIA [id number] [place] [address] [place] IgM [Mass/Vol] 387 mg/dL High 40-230 [facility] Comment on above: Order Comment: Speci men Type: BLOOD SPECIMENOrdering Facility: [facility] Address: [address] [place] [address] Performed By: #### S ERIMM ####[facility] LABCLIA [id number] [place] [address] [place] Laboratory - Chemistry and C hemistry - challengeon 09-06-2024 IgA [Mass/Vol] 163 mg/dL 70 - 400 mg/dL [facility] IgG [Mass/Vol] 599 mg/dL Low 700 - 1600 mg/dL [facility] IgM [Mass/Vol] 387 mg/dL High 40 - 230 mg/dL [facility] No Panel Informationon 09-06 Interpretation and review of laboratory results Abnormal [facility] CBC W Auto Differential pane l (Bld)on 08-29-2024 Basophils (Bld) [#/Vol] 0.06 10*3/uL Normal <0.11 [facility] Comment on above: Order Comment: Speci men Type: BLOOD SPECIMENOrdering Facility: [facility] Address: [address] [place] [address] Performed By: #### 5 7021-8 ####[facility] LABCLIA [id number] [place] [address] Basophils/100 WBC (Bld) 0.5 % Normal [facility] Comment on above: Order Comment: Speci men Type: BLOOD SPECIMENOrdering Facility: [facility] Address: [address] [place] [address] Performed By: #### 5 7021-8 ####[facility] LABCLIA [id number] [place] [address] Differential cell count method Nom (Bld) Auto Normal [facility] Comment on above: Order Comment: Speci men Type: BLOOD SPECIMENOrdering Facility: [facility] Address: [address] [place] [address] Performed By: #### 5 7021-8 ####[facility] LABCLIA [id number] [place] [address] Eosinophils (Bld) [#/Vol] 0.08 10*3/uL Normal <0.46 [facility] Comment on above: Order Comment: Speci men Type: BLOOD SPECIMENOrdering Facility: [facility] Address: [address] [place] [address] Performed By: #### 5 7021-8 ####[facility] LABCLIA [id number] [place] [address] Eosinophils/100 WBC (Bld) 0.6 % Normal [facility] Comment on above: Order Comment: Speci men Type: BLOOD SPECIMENOrdering Facility: [facility] Address: [address] [place] [address] Performed By: #### 5 7021-8 ####[facility] LABCLIA [id number] [place] [address] Erythrocyte distribution width (RBC) [Ratio] 16.0 % High 11.5-15.0 [facility] Comment on above: Order Comment: Speci men Type: BLOOD SPECIMENOrdering Facility: [facility] Address: [address] [place] [address] Performed By: #### 5 7021-8 ####[facility] LABCLIA [id number] [place] [address] Hematocrit (Bld) [Volume fraction] 42.9 % Normal 36.0-46.0 [facility] Comment on above: Order Comment: Speci men Type: BLOOD SPECIMENOrdering Facility: [facility] Address: [address] [place] [address] Performed By: #### 5 7021-8 ####[facility] LABCLIA [id number] [place] [address] Hemoglobin (Bld) [Mass/Vol] 13.8 g/dL Normal 11.5-15.5 [facility] Comment on above: Order Comment: Speci men Type: BLOOD SPECIMENOrdering Facility: [facility] Address: [address] [place] [address] Performed By: #### 5 7021-8 ####[facility] LABCLIA [id number] [place] [address] Immature granulocytes (Bld) [#/Vol] 0.23 10*3/uL High <0.10 [facility] Comment on above: Order Comment: Speci men Type: BLOOD SPECIMENOrdering Facility: [facility] Address: [address] [place] [address] Performed By: #### 5 7021-8 ####[facility] LABCLIA [id number] [place] [address] Immature granulocytes/100 WBC (Bld) 1.8 % Normal [facility] Comment on above: Order Comment: Speci men Type: BLOOD SPECIMENOrdering Facility: [facility] Address: [address] [place] [address] Performed By: #### 5 7021-8 ####[facility] LABCLIA [id number] [place] [address] Lymphocytes (Bld) [#/Vol] 2.07 10*3/uL Normal 1.00-4.00 [facility] Comment on above: Order Comment: Speci men Type: BLOOD SPECIMENOrdering Facility: [facility] Address: [address] [place] [address] Performed By: #### 5 7021-8 ####[facility] LABCLIA [id number] [place] [address] Lymphocytes/100 WBC (Bld) 15.8 % Normal [facility] Comment on above: Order Comment: Speci men Type: BLOOD SPECIMENOrdering Facility: [facility] Address: [address] [place] [address] Performed By: #### 5 7021-8 ####[facility] LABCLIA [id number] [place] [address] MCH (RBC) [Entitic mass] 30.2 pg Normal 26.0-34.0 [facility] Comment on above: Order Comment: Speci men Type: BLOOD SPECIMENOrdering Facility: [facility] Address: [address] [place] [address] Performed By: #### 5 7021-8 ####[facility] LABCLIA [id number] [place] [address] MCHC (RBC) [Mass/Vol] 32.2 g/dL Normal 30.5-36.0 [facility] Comment on above: Order Comment: Speci men Type: BLOOD SPECIMENOrdering Facility: [facility] Address: [address] [place] [address] Performed By: #### 5 7021-8 ####[facility] LABCLIA [id number] [place] [address] MCV (RBC) [Entitic vol] 93.9 fL Normal 80.0-100.0 [facility] Comment on above: Order Comment: Speci men Type: BLOOD SPECIMENOrdering Facility: [facility] Address: [address] [place] [address] Performed By: #### 5 7021-8 ####[facility] LABCLIA [id number] [place] [address] Monocytes (Bld) [#/Vol] 0.86 10*3/uL Normal <0.87 [facility] Comment on above: Order Comment: Speci men Type: BLOOD SPECIMENOrdering Facility: [facility] Address: [address] [place] [address] Performed By: #### 5 7021-8 ####[facility] LABCLIA [id number] [place] [address] Monocytes/100 WBC (Bld) 6.6 % Normal [facility] Comment on above: Order Comment: Speci men Type: BLOOD SPECIMENOrdering Facility: [facility] Address: [address] [place] [address] Performed By: #### 5 7021-8 ####[facility] LABCLIA [id number] [place] [address] Neutrophils (Bld) [#/Vol] 9.82 10*3/uL High 1.45-7.50 [facility] Comment on above: Order Comment: Speci men Type: BLOOD SPECIMENOrdering Facility: [facility] Address: [address] [place] [address] Performed By: #### 5 7021-8 ####[facility] LABCLIA [id number] [place] [address] Neutrophils/100 WBC (Bld) 74.7 % Normal [facility] Comment on above: Order Comment: Speci men Type: BLOOD SPECIMENOrdering Facility: [facility] Address: [address] [place] [address] Performed By: #### 5 7021-8 ####[facility] LABCLIA [id number] [place] [address] Nucleated RBC (Bld) [#/Vol] 10*3/uL Normal <0.01 [facility] Comment on above: Order Comment: Speci men Type: BLOOD SPECIMENOrdering Facility: [facility] Address: [address] [place] [address] Performed By: #### 5 7021-8 ####[facility] LABCLIA [id number] [place] [address] Nucleated RBC/100 WBC (Bld) [Ratio] 0.0 /100 WBC Normal [facility] Comment on above: Order Comment: Speci men Type: BLOOD SPECIMENOrdering Facility: [facility] Address: [address] [place] [address] Performed By: #### 5 7021-8 ####[facility] LABIA [id number] [place] [address] Platelet mean volume (Bld) [Entitic vol] 9.5 fL Normal 9.0-12.7 [facility] Comment on above: Order Comment: Speci men Type: BLOOD SPECIMENOrdering Facility: [facility] Address: [address] [place] [address] Performed By: #### 5 7021-8 ####[facility] LABIA [id number] [place] [address] Platelets (Bld) [#/Vol] 291 10*3/uL Normal 150-400 [facility] Comment on above: Order Comment: Speci men Type: BLOOD SPECIMENOrdering Facility: [facility] Address: [address] [place] [address] Performed By: #### 5 7021-8 ####[facility] LABIA [id number] [place] [address] RBC (Bld) [#/Vol] 4.57 10*6/uL Normal 3.90-5.20 [facility] Comment on above: Order Comment: Speci men Type: BLOOD SPECIMENOrdering Facility: [facility] Address: [address] [place] [address] Performed By: #### 5 7021-8 ####[facility] LABCLIA [id number] [place] [address] WBC (Bld) [#/Vol] 13.12 10*3/uL High 3.70-11.00 [facility] Comment on above: Order Comment: Speci men Type: BLOOD SPECIMENOrdering Facility: [facility] Address: [address] [place] [address] Performed By: #### 5 7021-8 ####[facility] LABCLIA [id number] [place] [address] Comprehensive metabolic 2000 panelon 08-29-2024 Albumin [Mass/Vol] 4.2 g/dL Normal 3.9-4.9 [facility] Comment on above: Order Comment: Speci men Type: BLOOD SPECIMENOrdering Facility: [facility] Address: [address] [place] [address] Performed By: #### 2 4323-8 ####[facility] LABCLIA [id number] [place] [address] ALP [Catalytic activity/Vol] 69 U/L Normal 34-123 [facility] Comment on above: Order Comment: Speci men Type: BLOOD SPECIMENOrdering Facility: [facility] Address: [address] [place] [address] Performed By: #### 2 4323-8 ####[facility] LABCLIA [id number] [place] [address] ALT [Catalytic activity/Vol] 38 U/L Normal 7-38 [facility] Comment on above: Order Comment: Speci men Type: BLOOD SPECIMENOrdering Facility: [facility] Address: [address] [place] [address] Performed By: #### 2 4323-8 ####[facility] LABCLIA [id number] [place] [address] Anion gap [Moles/Vol] 12 mmol/L Normal 8-15 [facility] Comment on above: Order Comment: Speci men Type: BLOOD SPECIMENOrdering Facility: [facility] Address: [address] [place] [address] Performed By: #### 2 4323-8 ####[facility] LABCLIA [id number] [place] [address] AST [Catalytic activity/Vol] 15 U/L Normal 13-35 [facility] Comment on above: Order Comment: Speci men Type: BLOOD SPECIMENOrdering Facility: [facility] Address: [address] [place] [address] Performed By: #### 2 4323-8 ####[facility] LABCLIA [id number] [place] [address] Bilirubin [Mass/Vol] 0.2 mg/dL Normal 0.2-1.3 [facility] Comment on above: Order Comment: Speci men Type: BLOOD SPECIMENOrdering Facility: [facility] Address: [address] [place] [address] Performed By: #### 2 4323-8 ####[facility] LABCLIA [id number] [place] [address] Calcium [Mass/Vol] 10.3 mg/dL High 8.5-10.2 [facility] Comment on above: Order Comment: Speci men Type: BLOOD SPECIMENOrdering Facility: [facility] Address: [address] [place] [address] Performed By: #### 2 4323-8 ####[facility] LABCLIA [id number] [place] [address] Chloride [Moles/Vol] 101 mmol/L Normal 98-107 [facility] Comment on above: Order Comment: Speci men Type: BLOOD SPECIMENOrdering Facility: [facility] Address: [address] [place] [address] Performed By: #### 2 4323-8 ####[facility] LABCLIA [id number] [place] [address] CO2 [Moles/Vol] 26 mmol/L Normal 22-30 [facility] Comment on above: Order Comment: Speci men Type: BLOOD SPECIMENOrdering Facility: [facility] Address: [address] [place] [address] Performed By: #### 2 4323-8 ####[facility] LABCLIA [id number] [place] [address] Creatinine [Mass/Vol] 0.64 mg/dL Normal 0.58-0.96 [facility] Comment on above: Order Comment: Speci men Type: BLOOD SPECIMENOrdering Facility: [facility] Address: [address] [place] [address] Performed By: #### 2 4323-8 ####[facility] LABCLIA [id number] [place] [address] Creatinine and Glomerular filtration rate.predicted panel (S/P/Bld) 113 mL/min/1.73m??? Normal >=60 [facility] Comment on above: Order Comment: Speci men Type: BLOOD SPECIMENOrdering Facility: [facility] Address: [address] [place] [address] Result Comment: Erin mated Glomerular Filtration Rate [...] actual GFR. Performed By: #### 2 4323-8 ####[facility] LABCLIA [id number] [place] [address] Glucose [Mass/Vol] 139 mg/dL High 74-99 [facility] Comment on above: Order Comment: Speci men Type: BLOOD SPECIMENOrdering Facility: [facility] Address: [address] [place] [address] Result Comment: The [place] Diabetes [employer] (ADA) provides guidance for cutoff [...] Standards of Medical Care in Diabetes 2016, [place] [employer]. Diabetes Care. 2016.39(Suppl 1). Performed By: #### 2 4323-8 ####[facility] LABCLIA [id number] [place] [address] Potassium [Moles/Vol] 4.4 mmol/L Normal 3.7-5.1 [facility] Comment on above: Order Comment: Speci men Type: BLOOD SPECIMENOrdering Facility: [facility] Address: [address] [place] [address] Performed By: #### 2 4323-8 ####[facility] LABCLIA [id number] [place] [address] Protein [Mass/Vol] 7.1 g/dL Normal 6.3-8.0 [facility] Comment on above: Order Comment: Speci men Type: BLOOD SPECIMENOrdering Facility: [facility] Address: [address] [place] [address] Performed By: #### 2 4323-8 ####[facility] LABCLIA [id number] [place] [address] Sodium [Moles/Vol] 139 mmol/L Normal 136-144 [facility] Comment on above: Order Comment: Speci men Type: BLOOD SPECIMENOrdering Facility: [facility] Address: [address] [place] [address] Performed By: #### 2 4323-8 ####[facility] LABCLIA [id number] [place] [address] Urea nitrogen [Mass/Vol] 18 mg/dL Normal 7-21 [facility] Comment on above: Order Comment: Speci men Type: BLOOD SPECIMENOrdering Facility: [facility] Address: [address] [place] [address] Performed By: #### 2 4323-8 ####[facility] LABCLIA [id number] [place] [address] Ferritin SerPl-mCncon 2024 Ferritin [Mass/Vol] 43.1 ng/mL Normal 14.7-205.1 [facility] Comment on above: Order Comment: Speci men Type: BLOOD SPECIMENOrdering Facility: [facility] Address: [address] [place] [address] Performed By: #### 2 132-9, 2284-8, 2276-4, 39583-1 ####[facility] LABCLIA [id number] [place] [address] [place] Folate SerPl-mCncon 08-30-19 25 Folate [Mass/Vol] ng/mL Normal >4.7 [facility] Comment on above: Order Comment: Speci men Type: BLOOD SPECIMENOrdering Facility: [facility] Address: [address] [place] [address] Result Comment: A re sult of > 20 ng/mL is not necessarily indicative of a pathologic or treatable condition: it reflects a limitation of the test methodology.Assay reference range: 4.8 to 24.2 ng/mL. Suitable for detection of folate deficiency.Reference:Folate III (Folate III) [package insert V 1.0 [place]ese]. [facility], [place], [place]: March 2015. Performed By: #### 2 132-9, 2284-8, 2276-4, 77570-8 ####[facility] LABCLIA [id number] [place] [id number] [place] IgG SerPl-mCncon 08-29-2024 IgG [Mass/Vol] 729 mg/dL Normal 700-1600 [facility] Comment on above: Order Comment: Speci men Type: BLOOD SPECIMENOrdering Facility: [facility] Address: [address] [place] [address] Performed By: #### 2 465-3 ####[facility] LABCLIA [id number] [address] [address] [place] Iron and Iron binding capaci ty panelon 08-29-2024 Iron [Mass/Vol] 80 ug/dL Normal 41-186 [facility] Comment on above: Order Comment: Speci men Type: BLOOD SPECIMENOrdering Facility: [facility] Address: [address] [place] [address] Performed By: #### 2 132-9, 2284-8, 2276-4, 14031-1 ####[facility] LABIA [id number] [place] [address] [place] Iron binding capacity [Mass/Vol] 416 ug/dL High 232-386 [facility] Comment on above: Order Comment: Speci men Type: BLOOD SPECIMENOrdering Facility: [facility] Address: [address] [place] [address] Performed By: #### 2 132-9, 2284-8, 2276-4, 07717-7 ####[facility] LABIA [id number] [address] [address] [place] Iron/TIBC [Molar ratio] 19.2 % Normal 15.0-57.0 [facility] Comment on above: Order Comment: Speci men Type: BLOOD SPECIMENOrdering Facility: [facility] Address: [address] [place], [place] [address] Performed By: #### 2 132-9, 2284-8, 2276-4, 83284-6 ####[facility] LABCLIA [id number] [address] [address] [place] Vit B12 SerPl-mCncon 025 Cobalamin (Vitamin B12) [Mass/Vol] 555 pg/mL Normal 232-1245 [facility] Comment on above: Order Comment: Speci men Type: BLOOD SPECIMENOrdering Facility: [facility] Address: [address] [place] [address] Performed By: #### 2 132-9, 2284-8, 2276-4, 81275-4 ####[facility] LABCLIA [id number] [place] [address] [place] CNPNon 08-28-2024 CNPN Normal [facility] [place] [address] Ultrasound Report Signed Patient: ARIADNA HALEY MR#: [id number] : 1980 Acct:[id number] Age/Sex: 43 / F ADM Date: 08/24/24 Loc: US Attending Dr: Gordo Barfield M.D. Ordering Physician: Gordo Barfield M.D. Date of Service: 08/24/24 Procedure(s): US thyroid Accession Number(s): [id number] cc: GAY ENCISO ; Gordo Barfield M.D. [address] [address] Patient Name: ARIADNA HALEY MRN: [id number] date: 1980 Sex: F Assigned Patient Location: US Current Patient Location: [place] Accession/Order Number: [id number] Exam Date: 08/24/2024 09:09 Report Date: 08/24/2024 [...] this was thought to be cystic. The air traffic controller today considered it solid and it was given TI-RADS 4 classification. No internal color flow is shown. Size has not significantly changed when measuring in a comparable manner. No other nodularity is seen. US/US thyroid IMPRESSION: SIMILAR SMALL LEFT THYROID NODULE. FOLLOW-UP IN ONE YEAR IS SUGGESTED. Impression dictated by: Simin Nelson M.D.08/24/2024 9:22 AM Dictation Location: [place] [address] Electronically authenticated by: [id number] Y Date: 08/24/2024 09:22 Dictated By: Simin Nelson M.D. Signed By: 08/24/24923 DD/ 1 TD/TT: Test Worker: [facility] Radiology, Radiologist, MD - 08/24/2024 [place] [address] Ultrasound Report Signed Patient: ARIADNA HALEY MR#: [id number] : 1980 Acct:[id number] Age/Sex: 43 / F ADM Date: 08/24/24 Loc: US Attending Dr: Gordo Barfield M.D. Ordering Physician: Gordo Barfield M.D. Date of Service: 08/24/24 Procedure(s): US thyroid Accession Number(s): [id number] cc: GAY ENCISO ; Gordo Barfield M.D. The [place] [id number] Patient Name: ARIADNA HALEY MRN: [facility]:[id number] date: 1980 Sex: F Assigned Patient Location: US Current Patient Location: US Accession/Order Number: [id number] Exam Date: 08/24/2024 09:09 Report Date: 08/24/2024 [...] this was thought to be cystic. The air traffic controller today considered it solid and it was given TI-RADS 4 classification. No internal color flow is shown. Size has not significantly changed when measuring in a comparable manner. No other nodularity is seen. US/US thyroid IMPRESSION: SIMILAR SMALL LEFT THYROID NODULE. FOLLOW-UP IN ONE YEAR IS SUGGESTED. Impression dictated by: Simin Nelson M.D.08/24/2024 9:22 AM Dictation Location: [place] [address] Electronically authenticated by: [id number] Y Date: 08/24/2024 09:22 Dictated By: Simin Nelson M.D. Signed By: 08/24/24923 DD/ 1 TD/TT: Test Worker: [facility] Radiology Study observation (narrative) [facility] US Thyroid glandOrdered By: Radiologist Radiology on 08-24-2024 [facility] [employer] Work Phone: CNPNon 08-08-2024 CNPN Normal [facility] HCG ( test) Marcelo varela Ql (U)Ordered By: Adolfo Kang on 07-19-2024 HCG ( test) Ql (U) Urine human chorionic gonadotropin (hCG) detection by immunoassay [facility] HCG,Urineon 07-19-2024 Beta HCG ( test) Ql (U) Negative Normal [facility] Comment on above: Result Comment: PERF ORMED BY: [place] [address] PATHOLOGIST [employer]AT [employer] HAYDEN LLAMAS M.D. Performed By: #### U HCG #### [address] CNOVon 07-12-2024 CNOV Normal [facility] CNPNon 07-09-2024 CNPN Normal [facility] 25(OH)D3 SerPl-mCncon 2024 25-hydroxyvitamin D3 [Mass/Vol] 28.5 ng/mL Low 31.0-80.0 [facility] Comment on above: Order Comment: Speci men Type: BLOOD SPECIMENOrdering Facility: [facility] Address: [address] [place] [address] Result Comment: Clas sification of 25 [place] Vitamin D status:Deficiency/Insufficiency: < or = 30 ng/ml.Sufficiency/Optimal Levels: 31-80 ng/mLToxicity: > 100 ng/mL.Test performed by chemiluminescent immunoassay. Performed By: #### 1 989-3 ####[facility] LABCLIA [id number] [place] [address] [place] CBC panel Auto (Bld)on 06-30 Erythrocyte distribution width (RBC) [Ratio] 14.3 % Normal 11.5-15.0 [facility] Comment on above: Order Comment: Speci men Type: BLOOD SPECIMENOrdering Facility: [facility] Address: [address] [place] [address] Performed By: #### 5 8410-2 ####[facility] LABIA [id number] [place], [place] [id number] [place] Hematocrit (Bld) [Volume fraction] 41.3 % Normal 36.0-46.0 [facility] Comment on above: Order Comment: Speci men Type: BLOOD SPECIMENOrdering Facility: [facility] Address: [address] [place] [address] Performed By: #### 5 8410-2 ####[facility] LABIA [id number] [place] [id number] [place] Hemoglobin (Bld) [Mass/Vol] 13.5 g/dL Normal 11.5-15.5 [facility] Comment on above: Order Comment: Speci men Type: BLOOD SPECIMENOrdering Facility: [facility] Address: [address] [place] [address] Performed By: #### 5 8410-2 ####[facility] LABCLIA [id number] [place] [address] [place] MCH (RBC) [Entitic mass] 30.4 pg Normal 26.0-34.0 [facility] Comment on above: Order Comment: Speci men Type: BLOOD SPECIMENOrdering Facility: [facility] Address: [address] [place] [address] Performed By: #### 5 8410-2 ####[facility] LABIA [id number] [place] [id number] [place] MCHC (RBC) [Mass/Vol] 32.7 g/dL Normal 30.5-36.0 [facility] Comment on above: Order Comment: Speci men Type: BLOOD SPECIMENOrdering Facility: [facility] Address: [address] [place] [address] Performed By: #### 5 8410-2 ####[facility] [id number] [place] [id number] [place] MCV (RBC) [Entitic vol] 93.0 fL Normal 80.0-100.0 [facility] Comment on above: Order Comment: Speci men Type: BLOOD SPECIMENOrdering Facility: [facility] Address: [address] [place] [address] Performed By: #### 5 8410-2 ####[facility] LABIA [id number] [place] [id number] [place] Nucleated RBC (Bld) [#/Vol] 10*3/uL Normal <0.01 [facility] Comment on above: Order Comment: Speci men Type: BLOOD SPECIMENOrdering Facility: [facility] Address: [address] [place] [address] Performed By: #### 5 8410-2 ####[facility] LABIA [id number] [place] [address] [place] Platelet mean volume (Bld) [Entitic vol] 9.8 fL Normal 9.0-12.7 [facility] Comment on above: Order Comment: Speci men Type: BLOOD SPECIMENOrdering Facility: [facility] Address: [address] [place] [address] Performed By: #### 5 8410-2 ####[facility] LABCLIA [id number] [place] [address] [place] Platelets (Bld) [#/Vol] 341 10*3/uL Normal 150-400 [facility] Comment on above: Order Comment: Speci men Type: BLOOD SPECIMENOrdering Facility: [facility] Address: [address] [place] [address] Performed By: #### 5 8410-2 ####[facility]ENTER[facility] LABIA [id number] [place] [id number] [place] RBC (Bld) [#/Vol] 4.44 10*6/uL Normal 3.90-5.20 [facility] Comment on above: Order Comment: Speci men Type: BLOOD SPECIMENOrdering Facility: [facility] Address: [address] [place] [address] Performed By: #### 5 8410-2 ####[facility] LABIA [id number] [place] [id number] [place] WBC (Bld) [#/Vol] 12.66 10*3/uL High 3.70-11.00 [facility] Comment on above: Order Comment: Speci men Type: BLOOD SPECIMENOrdering Facility: [facility] Address: [address] [place] [address] Performed By: #### 5 8410-2 ####[facility] LABIA [id number] [place] [address] [place] [facility] [place] CRP SerPl-mCncon 06-30-2024 CRP [Mass/Vol] 0.1 mg/dL Normal <0.9 [facility] Comment on above: Order Comment: Speci men Type: BLOOD SPECIMENOrdering Facility: [facility] Address: [address] [place] [address] Performed By: #### 2 43207-29, 1987-09 ####[facility] LABCLIA [id number] [place] [address] [place] [facility] Comprehensive metabolic 2000 panelon 06-30-2024 Albumin [Mass/Vol] 4.0 g/dL Normal 3.9-4.9 [facility] Comment on above: Order Comment: Speci men Type: BLOOD SPECIMENOrdering Facility: [facility] Address: [address] [place] [address] Performed By: #### 2 4322-12, 1987-09 ####[facility] LABCLIA [id number] [place] [address] [place] ALP [Catalytic activity/Vol] 52 U/L Normal 34-123 [facility] Comment on above: Order Comment: Speci men Type: BLOOD SPECIMENOrdering Facility: [facility] Address: [address] [place] [address] Performed By: #### 2 4322-12, 1987-09 ####[facility] LABIA [id number] [place] [address] [place] ALT [Catalytic activity/Vol] 26 U/L Normal 7-38 [facility] Comment on above: Order Comment: Speci men Type: BLOOD SPECIMENOrdering Facility: [facility] Address: [address] [place] [address] Performed By: #### 2 4322-12, 1987-09 ####[facility] LABIA [id number] [place] [address] [place] Anion gap [Moles/Vol] 10 mmol/L Normal 8-15 [facility] Comment on above: Order Comment: Speci men Type: BLOOD SPECIMENOrdering Facility: [facility] Address: [address] [place] [id number] Performed By: #### 2 4322-12, 1987-09 ####[facility] LABCLIA [id number] [place] [address] [place] AST [Catalytic activity/Vol] 12 U/L Low 13-35 [facility] Comment on above: Order Comment: Speci men Type: BLOOD SPECIMENOrdering Facility: [facility] Address: [address] [place] [id number] Performed By: #### 2 4322-12, 1987-09 ####[facility] LABCLIA [id number] [place] [address] [place] Bilirubin [Mass/Vol] 0.3 mg/dL Normal 0.2-1.3 [facility] Comment on above: Order Comment: Speci men Type: BLOOD SPECIMENOrdering Facility: [facility] Address: [address] [place] [address] Performed By: #### 2 4322-12, 1987-09 ####[facility] LABCLIA [id number] [place] [address] [place] Calcium [Mass/Vol] 9.5 mg/dL Normal 8.5-10.2 [facility] Comment on above: Order Comment: Speci men Type: BLOOD SPECIMENOrdering Facility: [facility] Address: [address] [place] [address] Performed By: #### 2 4322-12, 1987-09 ####[facility] LABCLIA [id number] [place] [address] [place] Chloride [Moles/Vol] 103 mmol/L Normal 98-107 [facility] Comment on above: Order Comment: Speci men Type: BLOOD SPECIMENOrdering Facility: [facility] Address: [address] [place] [address] Performed By: #### 2 8, 1987-09 ####[facility] LABCLIA [id number] [place] [address] [place] CO2 [Moles/Vol] 27 mmol/L Normal 22-30 [facility] Comment on above: Order Comment: Speci men Type: BLOOD SPECIMENOrdering Facility: [facility] Address: [address] [place], [place] [address] Performed By: #### 2 4328, 1987-09 ####[facility] LABCLIA [id number] [place] [address] [place] [facility] Creatinine [Mass/Vol] 0.78 mg/dL Normal 0.58-0.96 [facility] Comment on above: Order Comment: Semaj cortés Type: BLOOD SPECIMENOrdering Facility: [facility] Address: [address] [place] [address] Performed By: #### 2 43207-29, 1987-09 ####[facility] LABCLIA [id number] [place] [address] [facility] Creatinine and Glomerular filtration rate.predicted panel (S/P/Bld) 97 mL/min/1.73m??? Normal >=60 [facility] Comment on above: Order Comment: Semaj cortés Type: BLOOD SPECIMENOrdering Facility: [facility] Address: [address] [place] [address] Result Comment: Erin mated Glomerular Filtration Rate [...] Performed By: #### 2 43238, 1987-09 ####[facility] LABIA [id number] [place] [address] [place] Glucose [Mass/Vol] 116 mg/dL High 74-99 [facility] Comment on above: Order Comment: Semaj cortés Type: BLOOD SPECIMENOrdering Facility: [facility] Address: [address] [place] [address] Result Comment: The [place] [employer] (ADA) provides guidance for cutoff [...] Standards of Medical Care in Diabetes 2016, [place] [employer]. Diabetes Care. 2016.39(Suppl 1). Performed By: #### 2 4322-12, 1987-09 ####[facility] LABIA [id number] [place] [address] [place] Potassium [Moles/Vol] 3.8 mmol/L Normal 3.7-5.1 [facility] Comment on above: Order Comment: Speci men Type: BLOOD SPECIMENOrdering Facility: [facility] Address: [address] [place] [address] Performed By: #### 2 4322-12, 1987-09 ####[facility] LABIA [id number] [place] [address] [place] Protein [Mass/Vol] 7.6 g/dL Normal 6.3-8.0 [facility] Comment on above: Order Comment: Speci men Type: BLOOD SPECIMENOrdering Facility: [facility] Address: [address] [place] [address] Performed By: #### 2 4322-12, 1987-09 ####[facility] LABCLIA [id number] [place] [address] [place] Sodium [Moles/Vol] 140 mmol/L Normal 136-144 [facility] Comment on above: Order Comment: Speci men Type: BLOOD SPECIMENOrdering Facility: [facility] Address: [address] [place] [address] Performed By: #### 2 4322-12, 1987-09 ####[facility] LABIA [id number] [place] [address] [place] Urea nitrogen [Mass/Vol] 18 mg/dL Normal 7-21 [facility] Comment on above: Order Comment: Speci men Type: BLOOD SPECIMENOrdering Facility: [facility] Address: [address] [place] [address] Performed By: #### 2 4323-8, 1987-09 ####[facility] LABCLIA [id number] [place] [id number] [place] ESR Westergren method (Bld) [Velocity]on 06-30-2024 ESR (Bld) [Velocity] 28 mm/h High 0-20 [facility] Comment on above: Order Comment: Speci men Type: BLOOD SPECIMENOrdering Facility: [facility] Address: [address] [place] [address] Performed By: #### 4 537-7 ####[facility] LABCLIA [id number] [place] [address] [place] CNPNon 06-16-2024 CNPN Normal [facility] ALLIED HEALTHon 06-13-2024 ALLIED HEALTH Normal [facility] CBC W Auto Differential pane l (Bld)on 06-13-2024 Basophils (Bld) [#/Vol] 0.10 10*3/uL [facility] Basophils/100 WBC (Bld) 0.7 % [facility] Differential cell count method Nom (Bld) Auto [facility] Eosinophils (Bld) [#/Vol] 0.15 10*3/uL [facility] Eosinophils/100 WBC (Bld) 1.1 % [facility] Erythrocyte distribution width (RBC) [Ratio] 14.2 % 11.5 - 15.0 % [facility] Hematocrit (Bld) [Volume fraction] 39.0 % 36.0 - 46.0 % [facility] Hemoglobin (Bld) [Mass/Vol] 13.0 g/dL 11.5 - 15.5 g/dL [facility] Immature granulocytes (Bld) [#/Vol] 0.21 10*3/uL High NINF [facility] Immature granulocytes/100 WBC (Bld) 1.5 % [facility] Interpretation and review of laboratory results Abnormal [facility] Lymphocytes (Bld) [#/Vol] 2.16 10*3/uL [facility] Lymphocytes/100 WBC (Bld) 15.4 % [facility] MCH (RBC) [Entitic mass] 30.5 pg 26.0 - 34.0 pg [facility] MCHC (RBC) [Mass/Vol] 33.3 g/dL 30.5 - 36.0 g/dL [facility] MCV (RBC) [Entitic vol] 91.5 fL 80.0 - 100.0 fL [facility] Monocytes (Bld) [#/Vol] 0.79 10*3/uL NINF [facility] Monocytes/100 WBC (Bld) 5.6 % [facility] Neutrophils (Bld) [#/Vol] 10.59 10*3/uL High [facility] Neutrophils/100 WBC (Bld) 75.7 % [facility] Nucleated RBC (Bld) [#/Vol] NINF [facility] Nucleated RBC/100 WBC (Bld) [Ratio] 0.0 % /100 WBC [facility] Platelet mean volume (Bld) [Entitic vol] 9.9 fL 9.0 - 12.7 fL [facility] Platelets (Bld) [#/Vol] 327 10*3/uL [facility] RBC (Bld) [#/Vol] 4.26 10*6/uL 3.90 - 5.2 0 m/uL [facility] WBC (Bld) [#/Vol] 14.00 10*3/uL High [facility] Basophils (Bld) [#/Vol] 0.10 10*3/uL Normal <0.11 [facility] Comment on above: Order Comment: Speci men Type: BLOOD SPECIMENOrdering Facility: [facility] Address: [address] [place] [address] Performed By: #### 5 7021-8 ####[facility] LABCLIA [id number] [place] [address] Basophils/100 WBC (Bld) 0.7 % Normal [facility] Comment on above: Order Comment: Speci men Type: BLOOD SPECIMENOrdering Facility: [facility] Address: [address] [place] [address] Performed By: #### 5 7021-8 ####[facility] LABCLIA [id number] [place] [address] Differential cell count method Nom (Bld) Auto Normal [facility] Comment on above: Order Comment: Speci men Type: BLOOD SPECIMENOrdering Facility: [facility] Address: [address] [place], [place] [address] Performed By: #### 5 7021-8 ####[facility] LABCLIA [id number] [place] [address] Eosinophils (Bld) [#/Vol] 0.15 10*3/uL Normal <0.46 [facility] Comment on above: Order Comment: Speci men Type: BLOOD SPECIMENOrdering Facility: [facility] Address: [address] [place] [address] Performed By: #### 5 7021-8 ####[facility] LABCLIA [id number] [place] [address] Eosinophils/100 WBC (Bld) 1.1 % Normal [facility] Comment on above: Order Comment: Speci men Type: BLOOD SPECIMENOrdering Facility: [facility] Address: [address] [place] [address] Performed By: #### 5 7021-8 ####[facility] LABCLIA [id number] [place] [address] Erythrocyte distribution width (RBC) [Ratio] 14.2 % Normal 11.5-15.0 [facility] Comment on above: Order Comment: Speci men Type: BLOOD SPECIMENOrdering Facility: [facility] Address: [address] [place] [address] Performed By: #### 5 7021-8 ####[facility] LABCLIA [id number] [place] [address] Hematocrit (Bld) [Volume fraction] 39.0 % Normal 36.0-46.0 [facility] Comment on above: Order Comment: Speci men Type: BLOOD SPECIMENOrdering Facility: [facility] Address: [address] [place] [address] Performed By: #### 5 7021-8 ####[facility] LABCLIA [id number] [place] [address] Hemoglobin (Bld) [Mass/Vol] 13.0 g/dL Normal 11.5-15.5 [facility] Comment on above: Order Comment: Speci men Type: BLOOD SPECIMENOrdering Facility: [facility] Address: [address] [place] [address] Performed By: #### 5 7021-8 ####[facility] LABCLIA [id number] [place] [address] Immature granulocytes (Bld) [#/Vol] 0.21 10*3/uL High <0.10 [facility] Comment on above: Order Comment: Speci men Type: BLOOD SPECIMENOrdering Facility: [facility] Address: [address] [place] [address] Performed By: #### 5 7021-8 ####[facility] LABCLIA [id number] [place] [address] Immature granulocytes/100 WBC (Bld) 1.5 % Normal [facility] Comment on above: Order Comment: Speci men Type: BLOOD SPECIMENOrdering Facility: [facility] Address: [address] [place] [address] Performed By: #### 5 7021-8 ####[facility] LABCLIA [id number] [place] [address] Lymphocytes (Bld) [#/Vol] 2.16 10*3/uL Normal 1.00-4.00 [facility] Comment on above: Order Comment: Speci men Type: BLOOD SPECIMENOrdering Facility: [facility] Address: [address] [place] [address] Performed By: #### 5 7021-8 ####[facility] LABCLIA [id number] [place] [address] Lymphocytes/100 WBC (Bld) 15.4 % Normal [facility] Comment on above: Order Comment: Speci men Type: BLOOD SPECIMENOrdering Facility: [facility] Address: [address] [place] [address] Performed By: #### 5 7021-8 ####[facility] LABCLIA [id number] [place] [address] MCH (RBC) [Entitic mass] 30.5 pg Normal 26.0-34.0 [facility] Comment on above: Order Comment: Speci men Type: BLOOD SPECIMENOrdering Facility: [facility] Address: [address] [place] [address] Performed By: #### 5 7021-8 ####[facility] LABCLIA [id number] [place] [address] MCHC (RBC) [Mass/Vol] 33.3 g/dL Normal 30.5-36.0 [facility] Comment on above: Order Comment: Speci men Type: BLOOD SPECIMENOrdering Facility: [facility] Address: [address] [place] [address] Performed By: #### 5 7021-8 ####[facility] LABCLIA [id number] [place] [address] MCV (RBC) [Entitic vol] 91.5 fL Normal 80.0-100.0 [facility] Comment on above: Order Comment: Speci men Type: BLOOD SPECIMENOrdering Facility: [facility] Address: [address] [place] [address] Performed By: #### 5 7021-8 ####[facility] LABCLIA [id number] [place] [address] Monocytes (Bld) [#/Vol] 0.79 10*3/uL Normal <0.87 [facility] Comment on above: Order Comment: Speci men Type: BLOOD SPECIMENOrdering Facility: [facility] Address: [address] [place] [address] Performed By: #### 5 7021-8 ####[facility] LABCLIA [id number] [place] [address] Monocytes/100 WBC (Bld) 5.6 % Normal [facility] Comment on above: Order Comment: Speci men Type: BLOOD SPECIMENOrdering Facility: [facility] Address: [address] [place] [address] Performed By: #### 5 7021-8 ####[facility] LABCLIA [id number] [place] [address] Neutrophils (Bld) [#/Vol] 10.59 10*3/uL High 1.45-7.50 [facility] Comment on above: Order Comment: Speci men Type: BLOOD SPECIMENOrdering Facility: [facility] Address: [address] [place] [address] Performed By: #### 5 7021-8 ####[facility] LABIA [id number] [place] [address] Neutrophils/100 WBC (Bld) 75.7 % Normal [facility] Comment on above: Order Comment: Speci men Type: BLOOD SPECIMENOrdering Facility: [facility] Address: [address] [place] [address] Performed By: #### 5 7021-8 ####[facility] LABCLIA [id number] [place] [address] Nucleated RBC (Bld) [#/Vol] 10*3/uL Normal <0.01 [facility] Comment on above: Order Comment: Speci men Type: BLOOD SPECIMENOrdering Facility: [facility] Address: [address] [place] [address] Performed By: #### 5 7021-8 ####[facility] LABIA [id number] [place] [address] Nucleated RBC/100 WBC (Bld) [Ratio] 0.0 /100 WBC Normal [facility] Comment on above: Order Comment: Speci men Type: BLOOD SPECIMENOrdering Facility: [facility] Address: [address] [place], [place] [address] Performed By: #### 5 7021-8 ####[facility] LABCLIA [id number] [place] [address] Platelet mean volume (Bld) [Entitic vol] 9.9 fL Normal 9.0-12.7 [facility] Comment on above: Order Comment: Speci men Type: BLOOD SPECIMENOrdering Facility: [facility] Address: [address] [place] [address] Performed By: #### 5 7021-8 ####[facility] LABCLIA [id number] [place] [address] Platelets (Bld) [#/Vol] 327 10*3/uL Normal 150-400 [facility] Comment on above: Order Comment: Speci men Type: BLOOD SPECIMENOrdering Facility: [facility] Address: [address] [place] [address] Performed By: #### 5 7021-8 ####[facility] LABCLIA [id number] [place] [address] RBC (Bld) [#/Vol] 4.26 10*6/uL Normal 3.90-5.20 [facility] Comment on above: Order Comment: Speci men Type: BLOOD SPECIMENOrdering Facility: [facility] Address: [address] [place] [address] Performed By: #### 5 7021-8 ####[facility] LABCLIA [id number] [place] [address] WBC (Bld) [#/Vol] 14.00 10*3/uL High 3.70-11.00 [facility] Comment on above: Order Comment: Speci men Type: BLOOD SPECIMENOrdering Facility: [facility] Address: [address] [place] [address] Performed By: #### 5 7021-8 ####[facility] LABCLIA [id number] [place] [address] CNOVSPon 06-13-2024 CNOVSP Normal [facility] metabolic 2000 panelOrdered By: Josse Merlos on 06-13-2024 Albumin [Mass/Vol] 3.9 g/dL 3.9 - 4.9 g/dL [facility] ALP [Catalytic activity/Vol] 73 U/L 34 - 123 U/L [facility] ALT [Catalytic activity/Vol] 24 U/L 7 - 38 U/L [facility] Anion gap [Moles/Vol] 15 mmol/L 8 - 15 mmol/L [facility] AST [Catalytic activity/Vol] 12 U/L Low 13 - 35 U/L [facility] Bilirubin [Mass/Vol] mg/dL Low 0.2 - 1 .3 mg/dL [facility] Calcium [Mass/Vol] 9.2 mg/dL 8.5 - 10. 2 mg/dL [facility] Chloride [Moles/Vol] 104 mmol/L 98 - 10 7 mmol/L [facility] CO2 [Moles/Vol] 19 mmol/L Low 22 - 30 mmol/L [facility] Creatinine [Mass/Vol] 0.58 mg/dL 0.58 - 0.96 mg/dL [facility] GFR/1.73 sq M.predicted among non-blacks MDRD (S/P/Bld) [Vol rate/Area] 115 mL/min/{1.73_m2} - PINF [facility] Comment on above: Estimated Glomerular Filtration [...] High 74 - 99 mg/dL [facility] Comment on above: The [place] [employer] (ADA) provides guidance for [...] Standards of Medical Care in Diabetes 2016, [place] [employer]. Diabetes Care. 2016.39(Suppl 1). Interpretation and review of laboratory results Abnormal [facility] Potassium [Moles/Vol] 3.9 mmol/L 3.7 - 5.1 mmol/L [facility] Protein [Mass/Vol] 6.8 g/dL 6.3 - 8.0 g/dL [facility] Sodium [Moles/Vol] 138 mmol/L 136 - 144 mmol/L [facility] Urea nitrogen [Mass/Vol] 13 mg/dL 7 - 21 mg/dL [facility] Comprehensive metabolic 2000 panelon 06-13-2024 Albumin [Mass/Vol] 3.9 g/dL Normal 3.9-4.9 [facility] Comment on above: Order Comment: Speci men Type: BLOOD SPECIMENOrdering Facility: [facility] Address: [address] [place] [address] Performed By: #### 2 4323-8 ####[facility] LABCLIA [id number] [place] [address] ALP [Catalytic activity/Vol] 73 U/L Normal 34-123 [facility] Comment on above: Order Comment: Speci men Type: BLOOD SPECIMENOrdering Facility: [facility] Address: [address] [place] [address] Performed By: #### 2 4323-8 ####[facility] LABCLIA [id number] [place] [address] ALT [Catalytic activity/Vol] 24 U/L Normal 7-38 [facility] Comment on above: Order Comment: Speci men Type: BLOOD SPECIMENOrdering Facility: [facility] Address: [address] [place] [address] Performed By: #### 2 4323-8 ####[facility] LABCLIA [id number] [place] [address] Anion gap [Moles/Vol] 15 mmol/L Normal 8-15 [facility] Comment on above: Order Comment: Speci men Type: BLOOD SPECIMENOrdering Facility: [facility] Address: [address] [place] [address] Performed By: #### 2 4323-8 ####[facility] LABCLIA [id number] [place] [address] AST [Catalytic activity/Vol] 12 U/L Low 13-35 [facility] Comment on above: Order Comment: Speci men Type: BLOOD SPECIMENOrdering Facility: [facility] Address: [address] [place] [address] Performed By: #### 2 4323-8 ####[facility] LABCLIA [id number] [place] [address] Bilirubin [Mass/Vol] mg/dL Low 0.2-1.3 [facility] Comment on above: Order Comment: Speci men Type: BLOOD SPECIMENOrdering Facility: [facility] Address: [address] [place] [address] Performed By: #### 2 4323-8 ####[facility] LABCLIA [id number] [place] [address] Calcium [Mass/Vol] 9.2 mg/dL Normal 8.5-10.2 [facility] Comment on above: Order Comment: Speci men Type: BLOOD SPECIMENOrdering Facility: [facility] Address: [address] [place] [address] Performed By: #### 2 4323-8 ####[facility] LABCLIA [id number] [place] [address] Chloride [Moles/Vol] 104 mmol/L Normal 98-107 [facility] Comment on above: Order Comment: Speci men Type: BLOOD SPECIMENOrdering Facility: [facility] Address: [address] [place] [address] Performed By: #### 2 4323-8 ####[facility] LABCLIA [id number] [place] [address] CO2 [Moles/Vol] 19 mmol/L Low 22-30 [facility] Comment on above: Order Comment: Speci men Type: BLOOD SPECIMENOrdering Facility: [facility] Address: [address] [place] [address] Performed By: #### 2 4323-8 ####[facility] LABCLIA [id number] [place] [address] Creatinine [Mass/Vol] 0.58 mg/dL Normal 0.58-0.96 [facility] Comment on above: Order Comment: Speci men Type: BLOOD SPECIMENOrdering Facility: [facility] Address: [address] [place] [address] Performed By: #### 2 4323-8 ####[facility] LABCLIA [id number] [place] [address] Creatinine and Glomerular filtration rate.predicted panel (S/P/Bld) 115 mL/min/1.73m??? Normal >=60 [facility] Comment on above: Order Comment: Speci men Type: BLOOD SPECIMENOrdering Facility: [facility] Address: [address] [place] [address] Result Comment: Erin mated Glomerular Filtration Rate [...] actual GFR. Performed By: #### 2 4323-8 ####[facility] LABIA [id number] [place] [address] Glucose [Mass/Vol] 163 mg/dL High 74-99 [facility] Comment on above: Order Comment: Speci men Type: BLOOD SPECIMENOrdering Facility: [facility] Address: [address] [place] [address] Result Comment: The [place] Diabetes [employer] (ADA) provides guidance for cutoff [...] Standards of Medical Care in Diabetes 2016, [place] [employer]. Diabetes Care. 2016.39(Suppl 1). Performed By: #### 2 4323-8 ####[facility] LABCLIA [id number] [place] [address] Potassium [Moles/Vol] 3.9 mmol/L Normal 3.7-5.1 [facility] Comment on above: Order Comment: Speci men Type: BLOOD SPECIMENOrdering Facility: [facility] Address: [address] [place] [address] Performed By: #### 2 4323-8 ####[facility] LABCLIA [id number] [place] [address] Protein [Mass/Vol] 6.8 g/dL Normal 6.3-8.0 [facility] Comment on above: Order Comment: Speci men Type: BLOOD SPECIMENOrdering Facility: [facility] Address: [address] [place] [address] Performed By: #### 2 4323-8 ####[facility] LABCLIA [id number] [place] [address] Sodium [Moles/Vol] 138 mmol/L Normal 136-144 [facility] Comment on above: Order Comment: Speci men Type: BLOOD SPECIMENOrdering Facility: [facility] Address: [address] [place] [id number] Performed By: #### 2 4323-8 ####[facility] LABCLIA [id number] [place] [address] Urea nitrogen [Mass/Vol] 13 mg/dL Normal 7-21 [facility] Comment on above: Order Comment: Speci men Type: BLOOD SPECIMENOrdering Facility: [facility] Address: [address] [place] [address] Performed By: #### 2 4323-8 ####[facility] LABCLIA [id number] [place] [address] ESR Westergren method (Bld) [Velocity]on 06-13-2024 ESR (Bld) [Velocity] 30 mm/h High [facility] Interpretation and review of laboratory results Abnormal [facility] ESR (Bld) [Velocity] 30 mm/h High 0-20 [facility] Comment on above: Order Comment: Speci men Type: BLOOD SPECIMENOrdering Facility: [facility] Address: [address] [place] [address] Performed By: #### 4 537-7 ####[facility] LABCLIA [id number] [place] [address] [place] FERRITINon 06-13-2024 Ferritin [Mass/Vol] 30.9 ng/mL 14.7 - 2 05.1 ng/mL [facility] FOLATE, SERUMon 06-13-2024 Folate [Mass/Vol] 19.6 ng/mL 4.7 - PINF ng/mL [facility] Ferritin SerPl-mCncon 2024 Ferritin [Mass/Vol] 30.9 ng/mL Normal 14.7-205.1 [facility] Comment on above: Order Comment: Speci men Type: BLOOD SPECIMENOrdering Facility: [facility] Address: [address] [place] [address] Performed By: #### 2 284-8, 2276-4, 44184-4, 2132-9 ####[facility] LABCLIA [id number] [place] [address] [place] Ferritin [Mass/Vol]on 2024 Interpretation and review of laboratory results Normal [facility] Folate SerPl-mCncon 06-13-19 25 Folate [Mass/Vol] 19.6 ng/mL Normal >4.7 [facility] Comment on above: Order Comment: Speci men Type: BLOOD SPECIMENOrdering Facility: [facility] Address: [address] [place] [address] Performed By: #### 2 284-8, 2276-4, 02572-7, 2132-9 ####[facility] LABCLIA [id number] [place] [address] [place] IMMUNOGLOBULINS,IGG,IGA,IGMo n 06-13-2024 IgA [Mass/Vol] 170 mg/dL Normal 70-400 [facility] Comment on above: Order Comment: Speci men Type: BLOOD SPECIMENOrdering Facility: [facility] Address: [address] [place] [address] Performed By: #### S ERIMM ####[facility] LABCLIA [id number] [place] [address] [place] IgG [Mass/Vol] 663 mg/dL Low 700-1600 [facility] Comment on above: Order Comment: Speci men Type: BLOOD SPECIMENOrdering Facility: [facility] Address: [address] [place] [address] Performed By: #### S ERIMM ####[facility] LABCLIA [id number] [place] [address] [place] IgM [Mass/Vol] 376 mg/dL High 40-230 [facility] Comment on above: Order Comment: Speci men Type: BLOOD SPECIMENOrdering Facility: [facility] Address: [address] [place] [address] Performed By: #### S ERIMM ####[facility] LABCLIA [id number] [place] [address] [place] Iron and Iron binding capaci ty panelon 06-13-2024 Iron [Mass/Vol] 64 ug/dL Normal 41-186 [facility] Comment on above: Order Comment: Speci men Type: BLOOD SPECIMENOrdering Facility: [facility] Address: [address] [place], [place] [address] Performed By: #### 2 284-8, 2276-4, 26316-1, 2131-9 ####[facility] LABCLIA [id number] [place] [address] [place] Iron binding capacity [Mass/Vol] 409 ug/dL High 232-386 [facility] Comment on above: Order Comment: Speci men Type: BLOOD SPECIMENOrdering Facility: [facility] Address: [address] [place] [address] Performed By: #### 2 284-8, 2276-4, 88444-1, 2131-9 ####[facility] LABIA [id number] [place] [address] [place] Iron/TIBC [Molar ratio] 15.6 % Normal 15.0-57.0 [facility] Comment on above: Order Comment: Speci men Type: BLOOD SPECIMENOrdering Facility: [facility] Address: [address] [place] [address] Performed By: #### 2 284-8, 2276-4, 19720-1, 2131-9 ####[facility] LABIA [id number] [place] [address] [place] Laboratory - Chemistry and C hemistry - challengeon 06-13-2024 IgA [Mass/Vol] 170 mg/dL 70 - 400 mg/dL [facility] IgG [Mass/Vol] 663 mg/dL Low 700 - 1600 mg/dL [facility] IgM [Mass/Vol] 376 mg/dL High 40 - 230 mg/dL [facility] No Panel Informationon 06-13 Interpretation and review of laboratory results Normal [facility] Interpretation and review of laboratory results Abnormal [facility] VITAMIN B12on 06-13-2024 Cobalamin (Vitamin B12) [Mass/Vol] 516 pg/mL 232 - 1245 pg/mL [facility] Vit B12 SerPl-mCncon 025 Cobalamin (Vitamin B12) [Mass/Vol] 516 pg/mL Normal 232-1245 [facility] Comment on above: Order Comment: Speci men Type: BLOOD SPECIMENOrdering Facility: [facility] Address: [address] [place] [address] Performed By: #### 2 284-8, 2276-4, 25837-1, 2132-9 ####[facility] LABCLIA [id number] [facility] [place] [address] [place] CNPNon 06-12-2024 CNPN Normal [facility] IGP,APTIMA HPV,AGE GDLNon AGE GDLN ACOG TESTING Note . [facility] Comment on above: TESTS RESULT FLAG UN ITS REF RANGE LAB Clinician Provided Cytology Information Source.............Cervix;Endocervix No. of containers..01 ThinPrep Vial Age Algo ACOG Vicky... 30-65 01 FLAG LEGEND: L-Low Normal,H-High Normal,LL-Alert Low,HH-Alert High <-Panic Low,>-Panic High,A-Abnormal,AA-Critical Abnormal Performed at: 01 =G [facility] [place] [address] Aparna Solorzano MD, HPV APTIMA Negative Negative [facility] Comment on above: This nucleic acid am plification test detects fourteen high- risk HPV types (16,18,31,33,35,39,45,51,52,56,58,59,66,68) without differentiation. Performed at: = - [facility], [place] [id number] Imaging Center Manager: Aparna Solorzano MD, Phone: [phone] Performed at: - [facility], [place] [id number] Imaging Center Manager: Aparna Solorzano MD, Phone: [phone] IGP, APTIMA HPV, RFX 16/18,45 Note . [facility] Comment on above: TESTS RESULT FLAG UN ITS REF RANGE LAB DIAGNOSIS: 02 NEGATIVE FOR INTRAEPITHELIAL LESION OR MALIGNANCY. Specimen adequacy: 02 Satisfactory for evaluation. Endocervical and/or squamous metaplastic cells (endocervical component) are present. Performed by: David Kam, Geographic Information System Surveyor (ASCP) . 02 Note: Note 02 The [...] High,A-Abnormal,AA-Critical Abnormal Performed at: 02 [address] [facility] [address] [place] [address] Aparna Solorzano MD, BRUSH-SPATULA CERVIX [facility]ERVIX [facility] CBC W Auto Differential pane l (Bld)on 05-19-2024 Basophils (Bld) [#/Vol] 0.08 10*3/uL [facility] Basophils/100 WBC (Bld) 0.6 % [facility] Differential cell count method Nom (Bld) Auto [facility] Eosinophils (Bld) [#/Vol] 0.17 10*3/uL [facility] Eosinophils/100 WBC (Bld) 1.2 % [facility] Erythrocyte distribution width (RBC) [Ratio] 14.3 % 11.5 - 15.0 % [facility] Hematocrit (Bld) [Volume fraction] 39.8 % 36.0 - 46.0 % [facility] Hemoglobin (Bld) [Mass/Vol] 13.4 g/dL 11.5 - 15.5 g/dL [facility] Immature granulocytes (Bld) [#/Vol] 0.13 10*3/uL High [facility] Immature granulocytes/100 WBC (Bld) 0.9 % [facility] Interpretation and review of laboratory results Abnormal [facility] Lymphocytes (Bld) [#/Vol] 2.96 10*3/uL [facility] Lymphocytes/100 WBC (Bld) 20.5 % [facility] MCH (RBC) [Entitic mass] 31.1 pg 26.0 - 34.0 pg [facility] MCHC (RBC) [Mass/Vol] 33.7 g/dL 30.5 - 36.0 g/dL [facility] MCV (RBC) [Entitic vol] 92.3 fL 80.0 - 100.0 fL [facility] Monocytes (Bld) [#/Vol] 0.87 10*3/uL High NINF [facility] Monocytes/100 WBC (Bld) 6.0 % [facility] Neutrophils (Bld) [#/Vol] 10.20 10*3/uL High [facility] Neutrophils/100 WBC (Bld) 70.8 % [facility] Nucleated RBC (Bld) [#/Vol] NINF [facility] Nucleated RBC/100 WBC (Bld) [Ratio] 0.0 % /100 WBC [facility] Platelet mean volume (Bld) [Entitic vol] 10.1 fL 9.0 - 12.7 fL [facility] Platelets (Bld) [#/Vol] 303 10*3/uL [facility] RBC (Bld) [#/Vol] 4.31 10*6/uL 3.90 - 5.2 0 m/uL [facility] WBC (Bld) [#/Vol] 14.41 10*3/uL High [facility] Basophils (Bld) [#/Vol] 0.08 10*3/uL Normal <0.11 [facility] Comment on above: Order Comment: Speci men Type: BLOOD SPECIMENOrdering Facility: [facility] Address: [address] [place] [address] Performed By: #### 5 7021-8 ####[facility] LABCLIA [id number] [place] [address] Basophils/100 WBC (Bld) 0.6 % Normal [facility] Comment on above: Order Comment: Speci men Type: BLOOD SPECIMENOrdering Facility: [facility] Address: [address] [place] [address] Performed By: #### 5 7021-8 ####[facility] LABCLIA [id number] [place] [address] Differential cell count method Nom (Bld) Auto Normal [facility] Comment on above: Order Comment: Speci men Type: BLOOD SPECIMENOrdering Facility: [facility] Address: [address] [place] [address] Performed By: #### 5 7021-8 ####[facility] LABCLIA [id number] [place] [address] Eosinophils (Bld) [#/Vol] 0.17 10*3/uL Normal <0.46 [facility] Comment on above: Order Comment: Speci men Type: BLOOD SPECIMENOrdering Facility: [facility] Address: [address] [place] [address] Performed By: #### 5 7021-8 ####[facility] LABCLIA [id number] [place] [address] Eosinophils/100 WBC (Bld) 1.2 % Normal [facility] Comment on above: Order Comment: Speci men Type: BLOOD SPECIMENOrdering Facility: [facility] Address: [address] [place] [address] Performed By: #### 5 7021-8 ####[facility] LABCLIA [id number] [place] [address] Erythrocyte distribution width (RBC) [Ratio] 14.3 % Normal 11.5-15.0 [facility] Comment on above: Order Comment: Speci men Type: BLOOD SPECIMENOrdering Facility: [facility] Address: [address] [place] [address] Performed By: #### 5 7021-8 ####[facility] LABCLIA [id number] [place] [address] Hematocrit (Bld) [Volume fraction] 39.8 % Normal 36.0-46.0 [facility] Comment on above: Order Comment: Speci men Type: BLOOD SPECIMENOrdering Facility: [facility] Address: [address] [place] [address] Performed By: #### 5 7021-8 ####[facility] LABCLIA [id number] [place] [address] Hemoglobin (Bld) [Mass/Vol] 13.4 g/dL Normal 11.5-15.5 [facility] Comment on above: Order Comment: Speci men Type: BLOOD SPECIMENOrdering Facility: [facility] Address: [address] [place] [address] Performed By: #### 5 7021-8 ####[facility] LABCLIA [id number] [place] [address] Immature granulocytes (Bld) [#/Vol] 0.13 10*3/uL High <0.10 [facility] Comment on above: Order Comment: Speci men Type: BLOOD SPECIMENOrdering Facility: [facility] Address: [address] [place] [address] Performed By: #### 5 7021-8 ####[facility] LABCLIA [id number] [place] [address] Immature granulocytes/100 WBC (Bld) 0.9 % Normal [facility] Comment on above: Order Comment: Speci men Type: BLOOD SPECIMENOrdering Facility: [facility] Address: [address] [place] [address] Performed By: #### 5 7021-8 ####[facility] LABCLIA [id number] [place] [address] Lymphocytes (Bld) [#/Vol] 2.96 10*3/uL Normal 1.00-4.00 [facility] Comment on above: Order Comment: Speci men Type: BLOOD SPECIMENOrdering Facility: [facility] Address: [address] [place] [address] Performed By: #### 5 7021-8 ####[facility] LABCLIA [id number] [place] [address] Lymphocytes/100 WBC (Bld) 20.5 % Normal [facility] Comment on above: Order Comment: Speci men Type: BLOOD SPECIMENOrdering Facility: [facility] Address: [address] [place] [address] Performed By: #### 5 7021-8 ####[facility] LABCLIA [id number] [place] [address] MCH (RBC) [Entitic mass] 31.1 pg Normal 26.0-34.0 [facility] Comment on above: Order Comment: Speci men Type: BLOOD SPECIMENOrdering Facility: [facility] Address: [address] [place] [address] Performed By: #### 5 7021-8 ####[facility] LABCLIA [id number] [place] [address] MCHC (RBC) [Mass/Vol] 33.7 g/dL Normal 30.5-36.0 [facility] Comment on above: Order Comment: Speci men Type: BLOOD SPECIMENOrdering Facility: [facility] Address: [address] [place] [address] Performed By: #### 5 7021-8 ####[facility] LABCLIA [id number] [place] [address] MCV (RBC) [Entitic vol] 92.3 fL Normal 80.0-100.0 [facility] Comment on above: Order Comment: Speci men Type: BLOOD SPECIMENOrdering Facility: [facility] Address: [address] [place] [address] Performed By: #### 5 7021-8 ####[facility] LABCLIA [id number] [place] [address] Monocytes (Bld) [#/Vol] 0.87 10*3/uL High <0.87 [facility] Comment on above: Order Comment: Speci men Type: BLOOD SPECIMENOrdering Facility: [facility] Address: [address] [place] [address] Performed By: #### 5 7021-8 ####[facility] LABCLIA [id number] [place] [address] Monocytes/100 WBC (Bld) 6.0 % Normal [facility] Comment on above: Order Comment: Speci men Type: BLOOD SPECIMENOrdering Facility: [facility] Address: [address] [place] [address] Performed By: #### 5 7021-8 ####[facility] LABCLIA [id number] [place] [address] Neutrophils (Bld) [#/Vol] 10.20 10*3/uL High 1.45-7.50 [facility] Comment on above: Order Comment: Speci men Type: BLOOD SPECIMENOrdering Facility: [facility] Address: [address] [place] [address] Performed By: #### 5 7021-8 ####[facility] LABCLIA [id number] [place] [address] Neutrophils/100 WBC (Bld) 70.8 % Normal [facility] Comment on above: Order Comment: Speci men Type: BLOOD SPECIMENOrdering Facility: [facility] Address: [address] [place] [address] Performed By: #### 5 7021-8 ####[facility] LABCLIA [id number] [place] [address] Nucleated RBC (Bld) [#/Vol] 10*3/uL Normal <0.01 [facility] Comment on above: Order Comment: Speci men Type: BLOOD SPECIMENOrdering Facility: [facility] Address: [address] [place] [address] Performed By: #### 5 7021-8 ####[facility] LABCLIA [id number] [place] [address] Nucleated RBC/100 WBC (Bld) [Ratio] 0.0 /100 WBC Normal [facility] Comment on above: Order Comment: Speci men Type: BLOOD SPECIMENOrdering Facility: [facility] Address: [address] [place] [address] Performed By: #### 5 7021-8 ####[facility] LABIA [id number] [place] [address] Platelet mean volume (Bld) [Entitic vol] 10.1 fL Normal 9.0-12.7 [facility] Comment on above: Order Comment: Speci men Type: BLOOD SPECIMENOrdering Facility: [facility] Address: [address] [place] [address] Performed By: #### 5 7021-8 ####[facility] LABCLIA [id number] [place] [address] Platelets (Bld) [#/Vol] 303 10*3/uL Normal 150-400 [facility] Comment on above: Order Comment: Speci men Type: BLOOD SPECIMENOrdering Facility: [facility] Address: [address] [place] [address] Performed By: #### 5 7021-8 ####[facility] LABCLIA [id number] [place] [address] RBC (Bld) [#/Vol] 4.31 10*6/uL Normal 3.90-5.20 [facility] Comment on above: Order Comment: Speci men Type: BLOOD SPECIMENOrdering Facility: [facility] Address: [address] [place] [address] Performed By: #### 5 7021-8 ####[facility] LABIA [id number] [place] [address] WBC (Bld) [#/Vol] 14.41 10*3/uL High 3.70-11.00 [facility] Comment on above: Order Comment: Speci men Type: BLOOD SPECIMENOrdering Facility: [facility] Address: [address] [place] [address] Performed By: #### 5 7021-8 ####[facility] LABCLIA [id number] [place] [address] Comprehensive metabolic 2000 panelon 05-19-2024 Albumin [Mass/Vol] 4.0 g/dL 3.9 - 4.9 g/dL [facility] ALP [Catalytic activity/Vol] 79 U/L 34 - 123 U/L [facility] ALT [Catalytic activity/Vol] 25 U/L 7 - 38 U/L [facility] Anion gap [Moles/Vol] 14 mmol/L 8 - 15 mmol/L [facility] AST [Catalytic activity/Vol] 12 U/L Low 13 - 35 U/L [facility] Bilirubin [Mass/Vol] mg/dL Low 0.2 - 1 .3 mg/dL [facility] Calcium [Mass/Vol] 9.4 mg/dL 8.5 - 10. 2 mg/dL [facility] Chloride [Moles/Vol] 105 mmol/L 98 - 10 7 mmol/L [facility] CO2 [Moles/Vol] 21 mmol/L Low 22 - 30 mmol/L [facility] [facility] Creatinine [Mass/Vol] 0.49 mg/dL Low 0.58 - 0.96 mg/dL [facility] GFR/1.73 sq M.predicted among non-blacks MDRD (S/P/Bld) [Vol rate/Area] 120 mL/min/{1.73_m2} - PINF [facility] Comment on above: Estimated Glomerular Filtration [...] High 74 - 99 mg/dL [facility] Comment on above: The [place] Diab[employer] Association (ADA) provides guidance for [...] Standards of Medical Care in Diabetes 2016, [place] [employer]. Diabetes Care. 2016.39(Suppl 1). Interpretation and review of laboratory results Abnormal [facility] Potassium [Moles/Vol] 3.8 mmol/L 3.7 - 5.1 mmol/L [facility] Protein [Mass/Vol] 6.6 g/dL 6.3 - 8.0 g/dL [facility] Sodium [Moles/Vol] 140 mmol/L 136 - 144 mmol/L [facility] Urea nitrogen [Mass/Vol] 12 mg/dL 7 - 21 mg/dL [facility] Albumin [Mass/Vol] 4.0 g/dL Normal 3.9-4.9 [facility] Comment on above: Order Comment: Speci men Type: BLOOD SPECIMENOrdering Facility: [facility] Address: [address] [place] [address] Performed By: #### 2 4323-8 ####[facility] LABIA [id number] [place] [address] [place] ALP [Catalytic activity/Vol] 79 U/L Normal 34-123 [facility] Comment on above: Order Comment: Speci men Type: BLOOD SPECIMENOrdering Facility: [facility] Address: [address] [place] [address] Performed By: #### 2 4323-8 ####[facility] LABCLIA [id number] [place] [address] [place] ALT [Catalytic activity/Vol] 25 U/L Normal 7-38 [facility] Comment on above: Order Comment: Speci men Type: BLOOD SPECIMENOrdering Facility: [facility] Address: [address] [place] [address] Performed By: #### 2 4323-8 ####[facility] LABIA [id number] [place] [address] [place] Anion gap [Moles/Vol] 14 mmol/L Normal 8-15 [facility] Comment on above: Order Comment: Speci men Type: BLOOD SPECIMENOrdering Facility: [facility] Address: [address] [place] [address] Performed By: #### 2 4323-8 ####[facility] LABCLIA [id number] [place] [address] [place] AST [Catalytic activity/Vol] 12 U/L Low 13-35 [facility] Comment on above: Order Comment: Speci men Type: BLOOD SPECIMENOrdering Facility: [facility] Address: [address] [id number] Performed By: #### 2 4323-8 ####[facility] LABCLIA [id number] [place] [id number] [place] Bilirubin [Mass/Vol] mg/dL Low 0.2-1.3 [facility] Comment on above: Order Comment: Speci men Type: BLOOD SPECIMENOrdering Facility: [facility] Address: [address] [place] [address] Performed By: #### 2 4323-8 ####[facility] LABCLIA [id number] [place] [address] [place] Calcium [Mass/Vol] 9.4 mg/dL Normal 8.5-10.2 [facility] Comment on above: Order Comment: Speci men Type: BLOOD SPECIMENOrdering Facility: [facility] Address: [address] [place], [place] [address] Performed By: #### 2 4323-8 ####[facility] LABCLIA [id number] [place] [address] [place] Chloride [Moles/Vol] 105 mmol/L Normal 98-107 [facility] Comment on above: Order Comment: Speci men Type: BLOOD SPECIMENOrdering Facility: [facility] Address: [address] [place] [address] Performed By: #### 2 4323-8 ####[facility] LABCLIA [id number] [place] [address] [place] CO2 [Moles/Vol] 21 mmol/L Low 22-30 [facility] Comment on above: Order Comment: Speci men Type: BLOOD SPECIMENOrdering Facility: [facility] Address: [address] [place], [place] [address] Performed By: #### 2 4323-8 ####[facility] LABCLIA [id number] [place] [address] [place] Creatinine [Mass/Vol] 0.49 mg/dL Low 0.58-0.96 [facility] Comment on above: Order Comment: Semaj cortés Type: BLOOD SPECIMENOrdering Facility: [facility] Address: [address] [place] [address] Performed By: #### 2 4323-8 ####[facility] LABIA [id number] [place] [address] [place] Creatinine and Glomerular filtration rate.predicted panel (S/P/Bld) 120 mL/min/1.73m??? Normal >=60 [facility] Comment on above: Order Comment: Semaj cortés Type: BLOOD SPECIMENOrdering Facility: [facility] Address: [address] [place] [address] Result Comment: Erin mated Glomerular Filtration Rate [...] actual GFR. Performed By: #### 2 4323-8 ####[facility] LABIA [id number] [place] [address] [place] Glucose [Mass/Vol] 155 mg/dL High 74-99 [facility] Comment on above: Order Comment: Semaj cortés Type: BLOOD SPECIMENOrdering Facility: [facility] Address: [address] [place] [address] Result Comment: The [place] Diabetes Association (ADA) provides guidance for cutoff [...] Standards of Medical Care in Diabetes 2016, [place] [employer]. Diabetes Care. 2016.39(Suppl 1). Performed By: #### 2 4323-8 ####[facility] LABCLIA [id number] [place] [address] [place] Potassium [Moles/Vol] 3.8 mmol/L Normal 3.7-5.1 [facility] Comment on above: Order Comment: Speci men Type: BLOOD SPECIMENOrdering Facility: [facility] Address: [address] [place] [address] Performed By: #### 2 4323-8 ####[facility] LABCLIA [id number] [place] [address] [place] Protein [Mass/Vol] 6.6 g/dL Normal 6.3-8.0 [facility] Comment on above: Order Comment: Speci men Type: BLOOD SPECIMENOrdering Facility: [facility] Address: [address] [place] [address] Performed By: #### 2 4323-8 ####[facility] LABCLIA [id number] [place] [address] [place] Sodium [Moles/Vol] 140 mmol/L Normal 136-144 [facility] Comment on above: Order Comment: Speci men Type: BLOOD SPECIMENOrdering Facility: [facility] Address: [address] [place] [address] Performed By: #### 2 4323-8 ####[facility] LABCLIA [id number] [place] [address] [place] Urea nitrogen [Mass/Vol] 12 mg/dL Normal 7-21 [facility] Comment on above: Order Comment: Speci men Type: BLOOD SPECIMENOrdering Facility: [facility] Address: [address] [place] [address] Performed By: #### 2 4323-8 ####[facility] LABCLIA [id number] [place] [address] [place] ESR Westergren method (Bld) [Velocity]on 05-19-2024 ESR (Bld) [Velocity] 21 mm/h High [facility] Interpretation and review of laboratory results Abnormal [facility] ESR (Bld) [Velocity] 21 mm/h High 0-20 [facility] Comment on above: Order Comment: Speci men Type: BLOOD SPECIMENOrdering Facility: [facility] Address: [address] [place] [address] Performed By: #### 4 537-7 ####[facility] LABIA [id number] [place] [address] [place] FERRITIN BLDon 05-19-2024 Ferritin [Mass/Vol] 20.6 ng/mL 14.7 - 2 05.1 ng/mL [facility] FOLATE SERUMon 05-19-2024 Folate [Mass/Vol] 11.1 ng/mL 4.7 - PINF ng/mL [facility] Ferritin SerPl-mCncon 2023 Ferritin [Mass/Vol] 20.6 ng/mL Normal 14.7-205.1 [facility] Comment on above: Order Comment: Speci men Type: BLOOD SPECIMENOrdering Facility: [facility] Address: [address] [place] [address] Performed By: #### 2 276-4, 51488-8, 2284-8, 2132-9 ####[facility] LABCLIA [id number] [place] [address] [place] Folate SerPl-mCncon 05-19-20 24 Folate [Mass/Vol] 11.1 ng/mL Normal >4.7 [facility] Comment on above: Order Comment: Speci men Type: BLOOD SPECIMENOrdering Facility: [facility] Address: [address] [place] [address] Performed By: #### 2 276-4, 84360-0, 2283-8, 2132-01 ####[facility] LABIA [id number] [place] [address] [place] Iron and Iron binding capaci ty panelon 05-19-2024 Interpretation and review of laboratory results Abnormal [facility] Iron [Mass/Vol] 47 ug/dL 41 - 186 ug/dL [facility] Iron binding capacity [Mass/Vol] 420 ug/dL High 232 - 386 ug/dL [facility] Iron/TIBC [Molar ratio] 11.2 % Low 15.0 - 57.0 % [facility] Iron [Mass/Vol] 47 ug/dL Normal 41-186 [facility] Comment on above: Order Comment: Speci men Type: BLOOD SPECIMENOrdering Facility: [facility] Address: [address] [place] [address] Performed By: #### 2 276-4, 88482-1, 2283-12, 2132-01 ####[facility] LABIA [id number] [place] [address] [place] Iron binding capacity [Mass/Vol] 420 ug/dL High 232-386 [facility] Comment on above: Order Comment: Speci men Type: BLOOD SPECIMENOrdering Facility: [facility] Address: [address] [place] [address] Performed By: #### 2 276-4, 44901-1, 2283-12, 2132-01 ####[facility] LABCLIA [id number] [place] [address] [place] Iron/TIBC [Molar ratio] 11.2 % Low 15.0-57.0 [facility] Comment on above: Order Comment: Speci men Type: BLOOD SPECIMENOrdering Facility: [facility] Address: [address] [place] [address] Performed By: #### 2 276-4, 17196-2, 8, 2132-01 ####[facility] LABCLIA [id number] [place] [address] [place] No Panel Informationon 05-19 Interpretation and review of laboratory results Normal [facility] VITAMIN B12 BLOODon 05-19-20 24 Cobalamin (Vitamin B12) [Mass/Vol] 632 pg/mL 232 - 1245 pg/mL [facility] Vit B12 SerPl-mCncon 024 Cobalamin (Vitamin B12) [Mass/Vol] 632 pg/mL Normal 232-1245 [facility] Comment on above: Order Comment: Speci men Type: BLOOD SPECIMENOrdering Facility: [facility] Address: [address] [place] [address] Performed By: #### 2 276-4, 51445-0, 2284-8, 2132-9 ####[facility] LABCLIA [id number] [place] [address] [place] CNNURSEon 04-26-2024 CNNURSE Normal [facility] CNPNon 04-10-2024 CNPN Normal [facility] ALL CBC WITH AUTO DIFFon BASOPHILS ABSOLUTE AUTO 0.1 [facility] Basophils/100 WBC (Bld) 0.4 % 0.2 - 2.0 % [facility] Eosinophils/100 WBC (Bld) 0.4 % Low 0.9 - 7.0 % [facility] Erythrocyte distribution width (RBC) [Ratio] 15.1 % High 11.0 - 15.0 % [facility] Hematocrit (Bld) [Volume fraction] 39.7 % 36.0 - 48.0 % [facility] Hemoglobin (Bld) [Mass/Vol] 13 g/dL 12.0 - 16.0 g/dL [facility] IMMATURE GRANULOCYTES ABS AUTO 0.1 High [facility] Immature granulocytes/100 WBC (Bld) 0.9 % High 0.0 - 0.5 % [facility] Interpretation and review of laboratory results Abnormal [facility] LYMPHOCYTES ABSOLUTE AUTO 2.1 [facility] Lymphocytes/100 WBC (Bld) 18.4 % Low 20.5 - 60.0 % [facility] MCH (RBC) [Entitic mass] 30.9 pg 26.7 - 34.0 pg [facility] MCHC (RBC) [Mass/Vol] 32.7 g/dL 29.9 - 35.2 g/dL [facility] MCV (RBC) [Entitic vol] 94.3 fL 81.0 - 99.0 fL [facility] MONOCYTES ABSOLUTE AUTO 0.8 [facility] Monocytes/100 WBC (Bld) 6.7 % 1.7 - 12.0 % [facility] NEUTROPHILS ABSOLUTE AUTO 8.3 High [facility] Neutrophils/100 WBC (Bld) 73.2 % 43.0 - 75.0 % [facility] Platelet mean volume (Bld) [Entitic vol] 10.1 fL 9.5 - 13.5 fL [facility] TBH EO # 0.1 [facility] TB PLT 326 [facility] RBC 4.21 [facility] WBC 11.4 High [facility] ALL THYROID STIM HORMONEon 1 06-06-2023 Interpretation and review of laboratory results Abnormal [facility] TSH Qn 0.333 m[IU]/L Low [facility] ALL THYROXINE (T4) FREEon Free T4 [Mass/Vol] 1.01 ng/dL 0.76 - 1. 46 ng/dL [facility] CCF APTTon 04-06-2024 aPTT Coag (Bld) [Time] 25.6 s [facility] MLR HEMOGLOBIN A1Con 024 Glucose [Mass/Vol] 134 mg/dL [facility] HbA1c (Bld) [Mass fraction] 6.3 % High 4.5 - 6.2 % [facility] Comment on above: ADA RECOMMENDED LIMI T 4.0 - 6.0 ADA THERAPEUTIC TARGET < 7.0 ACTION SUGGESTED > 7.0 Interpretation and review of laboratory results Abnormal [facility] No Panel [facility]on 04[facility]06 [facility] PROT[facility]OMBIN TIME INR W/O COUMon 04-06-2024 PT Coag (PPP) [Time] 9.6 s [facility] INR <0.93 [facility] Comment on above: DESIRED INR: 2.0-3.0 CONDITIONS NOT LISTED BELOW 2.5-3.5 FOR PROSTHETIC HEART VALVE REPLACEMENT 2.5-3.5 RECURRENT THROMBOSIS TBH PREG QUANT HCGon 024 HCG QUANTITATIVE <1 mIU/mL [facility] Comment on above: 5-50 0.2-1 WEEK 50-500 1-2 WEEKS 100-5,000 2-3 WEEKS 500-10,000 3-4 WEEKS 1,000-50,000 4-5 WEEKS 10,000-100,000 5-6 WEEKS 15,000-200,000 6-8 WEEKS 10,000-100,000 2-3 MONTHS CNPNon 04-02-2024 CNPN Normal [facility] 25(OH)D3 SerPl-mCncon 2023 25-hydroxyvitamin D3 [Mass/Vol] 19.9 ng/mL Low 31.0-80.0 [facility] Comment on above: Order Comment: Speci men Type: BLOOD SPECIMENOrdering Facility: [facility] Address: [address] [place] [address] Result Comment: Clas sification of 25 [place] Vitamin D status:Deficiency/Insufficiency: < or = 30 ng/ml.Sufficiency/Optimal Levels: 31-80 ng/mLToxicity: > 100 ng/mL.Test performed by chemiluminescent immunoassay. Performed By: #### 1 989-3 ####[facility] [id number] [place] [address] [place] BLOOD TB SCREENon 03-23-2024 M. tuberculosis tuberculin stim IFN-g Ql (Bld) Negative Normal [facility] Comment on above: Order Comment: Speci men Type: BLOOD SPECIMENOrdering Facility: [facility] Address: [address] [place] [address] Performed By: #### I NFTBP ####[facility] [id number] [place] [address] [place] MITOGEN MINUS NIL >10.00 Normal >=0.50 [facility] Comment on above: Order Comment: Speci men Type: BLOOD SPECIMENOrdering Facility: [facility] Address: [address] [place] [address] Performed By: #### I NFTBP ####[facility] LABCLIA [id number] [place] [address] [place] TB GAMMA INTERPRETATION Normal [facility] Comment on above: Order Comment: Speci men Type: BLOOD SPECIMENOrdering Facility: [facility] Address: [address] [place] [address] Performed By: #### I NFTBP ####[facility] LABCLIA [id number] [place] [address] [place] TB NIL <0.00 Normal <=8.00 [facility] Comment on above: Order Comment: Speci men Type: BLOOD SPECIMENOrdering Facility: [facility] Address: [address] [place] [address] Performed By: #### I NFTBP ####[facility] LABCLIA [id number] [place] [address] [place] TB1 AG MINUS NIL 0.00 IU/mL Normal <0.35 [facility] Comment on above: Order Comment: Speci men Type: BLOOD SPECIMENOrdering Facility: [facility] Address: [address] [place] [address] Performed By: #### I NFTBP ####[facility] LABCLIA [id number] [place] [address] [place] TB2 AG MINUS NIL 0.00 IU/mL Normal <0.35 [facility] Comment on above: Order Comment: Speci men Type: BLOOD SPECIMENOrdering Facility: [facility] Address: [address] [place] [address] Performed By: #### I NFTBP ####[facility] LABCLIA [id number] [place] [address] [place] Bacteria Bld Culton -31-20 24 Bacteria identified Cx Nom (Bld) CULTURE, BLOOD: No growth 5 days Normal [facility] Comment on above: Performed By: #### 6 00-7 ####[facility] LABCLIA [id number] [facility] [id number] [id number] [place] CBC W Auto Differential pane l (Bld)on 03-23-2024 Basophils (Bld) [#/Vol] 0.06 10*3/uL Normal <0.11 [facility] Comment on above: Order Comment: Speci men Type: BLOOD SPECIMENOrdering Facility: [facility] Address: [address] [place] [address] Performed By: #### 5 7021-8 ####[facility] LABCLIA [id number] [place] [address] Basophils/100 WBC (Bld) 0.5 % Normal [facility] Comment on above: Order Comment: Speci men Type: BLOOD SPECIMENOrdering Facility: [facility] Address: [address] [place] [address] Performed By: #### 5 7021-8 ####[facility] LABCLIA [id number] [place] [address] Differential cell count method Nom (Bld) Auto Normal [facility] Comment on above: Order Comment: Speci men Type: BLOOD SPECIMENOrdering Facility: [facility] Address: [address] [place] [address] Performed By: #### 5 7021-8 ####[facility] LABCLIA [id number] [place] [address] Eosinophils (Bld) [#/Vol] 0.13 10*3/uL Normal <0.46 [facility] Comment on above: Order Comment: Speci men Type: BLOOD SPECIMENOrdering Facility: [facility] Address: [address] [place] [address] Performed By: #### 5 7021-8 ####[facility] LABCLIA [id number] [place] [address] Eosinophils/100 WBC (Bld) 1.0 % Normal [facility] Comment on above: Order Comment: Speci men Type: BLOOD SPECIMENOrdering Facility: [facility] Address: [address] [place] [address] Performed By: #### 5 7021-8 ####[facility] LABCLIA [id number] [place] [address] Erythrocyte distribution width (RBC) [Ratio] 15.2 % High 11.5-15.0 [facility] Comment on above: Order Comment: Speci men Type: BLOOD SPECIMENOrdering Facility: [facility] Address: [address] [place] [address] Performed By: #### 5 7021-8 ####[facility] LABCLIA [id number] [place] [address] Hematocrit (Bld) [Volume fraction] 39.3 % Normal 36.0-46.0 [facility] Comment on above: Order Comment: Speci men Type: BLOOD SPECIMENOrdering Facility: [facility] Address: [address] [place] [address] Performed By: #### 5 7021-8 ####[facility] LABCLIA [id number] [place] [address] Hemoglobin (Bld) [Mass/Vol] 13.1 g/dL Normal 11.5-15.5 [facility] Comment on above: Order Comment: Speci men Type: BLOOD SPECIMENOrdering Facility: [facility] Address: [address] [place] [address] Performed By: #### 5 7021-8 ####[facility] LABCLIA [id number] [place] [address] Immature granulocytes (Bld) [#/Vol] 0.12 10*3/uL High <0.10 [facility] Comment on above: Order Comment: Speci men Type: BLOOD SPECIMENOrdering Facility: [facility] Address: [address] [place] [address] Performed By: #### 5 7021-8 ####[facility] LABCLIA [id number] [place] [address] Immature granulocytes/100 WBC (Bld) 0.9 % Normal [facility] Comment on above: Order Comment: Speci men Type: BLOOD SPECIMENOrdering Facility: [facility] Address: [address] [place] [address] Performed By: #### 5 7021-8 ####[facility] LABCLIA [id number] [place] [address] Lymphocytes (Bld) [#/Vol] 2.03 10*3/uL Normal 1.00-4.00 [facility] Comment on above: Order Comment: Speci men Type: BLOOD SPECIMENOrdering Facility: [facility] Address: [address] [place] [address] Performed By: #### 5 7021-8 ####[facility] LABCLIA [id number] [place] [address] Lymphocytes/100 WBC (Bld) 15.7 % Normal [facility] Comment on above: Order Comment: Speci men Type: BLOOD SPECIMENOrdering Facility: [facility] Address: [address] [place] [address] Performed By: #### 5 7021-8 ####[facility] LABCLIA [id number] [place] [address] MCH (RBC) [Entitic mass] 31.3 pg Normal 26.0-34.0 [facility] Comment on above: Order Comment: Speci men Type: BLOOD SPECIMENOrdering Facility: [facility] Address: [address] [place] [address] Performed By: #### 5 7021-8 ####[facility] LABIA [id number] [place] [address] MCHC (RBC) [Mass/Vol] 33.3 g/dL Normal 30.5-36.0 [facility] Comment on above: Order Comment: Speci men Type: BLOOD SPECIMENOrdering Facility: [facility] Address: [address] [place] [address] Performed By: #### 5 7021-8 ####[facility] LABCLIA [id number] [place] [address] MCV (RBC) [Entitic vol] 93.8 fL Normal 80.0-100.0 [facility] Comment on above: Order Comment: Speci men Type: BLOOD SPECIMENOrdering Facility: [facility] Address: [address] [place] [address] Performed By: #### 5 7021-8 ####[facility] LABCLIA [id number] [place] [address] Monocytes (Bld) [#/Vol] 0.65 10*3/uL Normal <0.87 [facility] Comment on above: Order Comment: Speci men Type: BLOOD SPECIMENOrdering Facility: [facility] Address: [address] [place] [address] Performed By: #### 5 7021-8 ####[facility] LABCLIA [id number] [place] [address] Monocytes/100 WBC (Bld) 5.0 % Normal [facility] Comment on above: Order Comment: Speci men Type: BLOOD SPECIMENOrdering Facility: [facility] Address: [address] [place] [address] Performed By: #### 5 7021-8 ####[facility] LABCLIA [id number] [place] [address] Neutrophils (Bld) [#/Vol] 9.90 10*3/uL High 1.45-7.50 [facility] Comment on above: Order Comment: Speci men Type: BLOOD SPECIMENOrdering Facility: [facility] Address: [address] [place] [address] Performed By: #### 5 7021-8 ####[facility] LABCLIA [id number] [place] [address] Neutrophils/100 WBC (Bld) 76.9 % Normal [facility] Comment on above: Order Comment: Speci men Type: BLOOD SPECIMENOrdering Facility: [facility] Address: [address] [place] [address] Performed By: #### 5 7021-8 ####[facility] LABCLIA [id number] [place] [address] Nucleated RBC (Bld) [#/Vol] 10*3/uL Normal <0.01 [facility] Comment on above: Order Comment: Speci men Type: BLOOD SPECIMENOrdering Facility: [facility] Address: [address] [place] [address] Performed By: #### 5 7021-8 ####[facility] LABCLIA [id number] [place] [address] Nucleated RBC/100 WBC (Bld) [Ratio] 0.0 /100 WBC Normal [facility] Comment on above: Order Comment: Speci men Type: BLOOD SPECIMENOrdering Facility: [facility] [facility] Address: [address] [place] [address] Performed By: #### 5 7021-8 ####[facility] LABCLIA [id number] [place] [address] Platelet mean volume (Bld) [Entitic vol] 10.0 fL Normal 9.0-12.7 [facility] Comment on above: Order Comment: Speci men Type: BLOOD SPECIMENOrdering Facility: [facility] Address: [address] [place] [address] Performed By: #### 5 7021-8 ####[facility] LABIA [id number] [place] [address] Platelets (Bld) [#/Vol] 262 10*3/uL Normal 150-400 [facility] Comment on above: Order Comment: Speci men Type: BLOOD SPECIMENOrdering Facility: [facility] Address: [address] [place] [address] Performed By: #### 5 7021-8 ####[facility] LABCLIA [id number] [place] [address] RBC (Bld) [#/Vol] 4.19 10*6/uL Normal 3.90-5.20 [facility] Comment on above: Order Comment: Speci men Type: BLOOD SPECIMENOrdering Facility: [facility] Address: [address] [place] [address] Performed By: #### 5 7021-8 ####[facility] LABCLIA [id number] [place] [address] WBC (Bld) [#/Vol] 12.89 10*3/uL High 3.70-11.00 [facility] Comment on above: Order Comment: Speci men Type: BLOOD SPECIMENOrdering Facility: [facility] Address: [address] [place] [address] Performed By: #### 5 7021-8 ####[facility] LABCLIA [id number] [place] [address] CNNURSEon 03-23-2024 CNNURSE Normal [facility] CRP SerPl-mCncon 03-23-2024 CRP [Mass/Vol] 0.3 mg/dL Normal <0.9 [facility] Comment on above: Order Comment: Speci men Type: BLOOD SPECIMENOrdering Facility: [facility] Address: [address] [place] [address] Performed By: #### 5 0190-8, 2276-4, 1987-09 ####[facility] LABCLIA [id number] [address] [address] [place] Comprehensive metabolic 2000 panelon 03-23-2024 Albumin [Mass/Vol] 3.9 g/dL Normal 3.9-4.9 [facility] Comment on above: Order Comment: Speci men Type: BLOOD SPECIMENOrdering Facility: [facility] Address: [address] [place] [address] Performed By: #### 2 4323-8 ####[facility] LABCLIA [id number] [place] [address] [place] ALP [Catalytic activity/Vol] 70 U/L Normal 34-123 [facility] Comment on above: Order Comment: Speci men Type: BLOOD SPECIMENOrdering Facility: [facility] Address: [address] [place] [address] Performed By: #### 2 4323-8 ####[facility] LABCLIA [id number] [place] [address] [place] ALT [Catalytic activity/Vol] 27 U/L Normal 7-38 [facility] Comment on above: Order Comment: Speci men Type: BLOOD SPECIMENOrdering Facility: [facility] Address: [address] [place] [address] Performed By: #### 2 4323-8 ####[facility] LABCLIA [id number] [place] [address] [place] Anion gap [Moles/Vol] 15 mmol/L Normal 8-15 [facility] Comment on above: Order Comment: Speci men Type: BLOOD SPECIMENOrdering Facility: [facility] Address: [address] [place] [address] Performed By: #### 2 4323-8 ####[facility] LABCLIA [id number] [place] [address] [place] AST [Catalytic activity/Vol] 20 U/L Normal 13-35 [facility] Comment on above: Order Comment: Speci men Type: BLOOD SPECIMENOrdering Facility: [facility] Address: [address] [place], [place] [address] Performed By: #### 2 4323-8 ####[facility] LABCLIA [id number] [place] [address] [place] Bilirubin [Mass/Vol] mg/dL Low 0.2-1.3 [facility] Comment on above: Order Comment: Speci men Type: BLOOD SPECIMENOrdering Facility: [facility] Address: [address] [place], [place] [address] Performed By: #### 2 4323-8 ####[facility] LABCLIA [id number] [address] [address] [place] Calcium [Mass/Vol] 9.2 mg/dL Normal 8.5-10.2 [facility] Comment on above: Order Comment: Speci men Type: BLOOD SPECIMENOrdering Facility: [facility] Address: [address] [place] [address] Performed By: #### 2 4323-8 ####[facility] LABCLIA [id number] [place] [address] [place] Chloride [Moles/Vol] 104 mmol/L Normal 98-107 [facility] Comment on above: Order Comment: Speci men Type: BLOOD SPECIMENOrdering Facility: [facility] Address: [address] [place] [address] Performed By: #### 2 4323-8 ####[facility] LABCLIA [id number] [place] [address] [place] CO2 [Moles/Vol] 20 mmol/L Low 22-30 [facility] Comment on above: Order Comment: Speci men Type: BLOOD SPECIMENOrdering Facility: [facility] Address: [address] [place], [place] [address] Performed By: #### 2 4323-8 ####[facility] LABCLIA [id number] [place] [id number] [place] Creatinine [Mass/Vol] 0.61 mg/dL Normal 0.58-0.96 [facility] Comment on above: Order Comment: Speci men Type: BLOOD SPECIMENOrdering Facility: [facility] Address: [address] [place], [place] [address] Performed By: #### 2 4323-8 ####[facility] LABCLIA [id number] [place] [address] [place] Creatinine and Glomerular filtration rate.predicted panel (S/P/Bld) 114 mL/min/1.73m??? Normal >=60 [facility] Comment on above: Order Comment: Semaj cortés Type: BLOOD SPECIMENOrdering Facility: [facility] Address: [address] [place] [address] Result Comment: Erin mated Glomerular Filtration Rate [...] actual GFR. Performed By: #### 2 4323-8 ####[facility] LABIA [id number] [place] [address] [place] Glucose [Mass/Vol] 152 mg/dL High 74-99 [facility] Comment on above: Order Comment: Semaj cortés Type: BLOOD SPECIMENOrdering Facility: [facility] Address: [address] [place] [address] Result Comment: The [place] [employer] (ADA) provides guidance for cutoff [...] Standards of Medical Care in Diabetes 2016, [place] [employer]. Diabetes Care. 2016.39(Suppl 1). Performed By: #### 2 4323-8 ####[facility] LABIA [id number] [place] [address] [place] Potassium [Moles/Vol] 4.3 mmol/L Normal 3.7-5.1 [facility] Comment on above: Order Comment: Speci men Type: BLOOD SPECIMENOrdering Facility: [facility] Address: [address] [place] [address] Performed By: #### 2 4323-8 ####[facility] LABCLIA [id number] [place] [address] [place] Protein [Mass/Vol] 6.6 g/dL Normal 6.3-8.0 [facility] Comment on above: Order Comment: Speci men Type: BLOOD SPECIMENOrdering Facility: [facility] Address: [address] [place] [address] Performed By: #### 2 4323-8 ####[facility] LABCLIA [id number] [place] [address] [place] Sodium [Moles/Vol] 139 mmol/L Normal 136-144 [facility] Comment on above: Order Comment: Speci men Type: BLOOD SPECIMENOrdering Facility: [facility] Address: [address] [place] [address] Performed By: #### 2 4323-8 ####[facility] LABCLIA [id number] [place] [address] [place] Urea nitrogen [Mass/Vol] 20 mg/dL Normal 7-21 [facility] Comment on above: Order Comment: Speci men Type: BLOOD SPECIMENOrdering Facility: [facility] Address: [address] [place] [address] Performed By: #### 2 4323-8 ####[facility] LABCLIA [id number] [place] [address] [place] ESR Westergren method (Bld) [Velocity]on 03-23-2024 ESR (Bld) [Velocity] 27 mm/h High 0-20 [facility] Comment on above: Order Comment: Speci men Type: BLOOD SPECIMENOrdering Facility: [facility] Address: [address] [place] [address] Performed By: #### 4 537-7 ####[facility] LABCLIA [id number] [place] [address] [place] Ferritin [facility] 2023 Ferritin [Mass/Vol] 33.3 ng/mL Normal 14.7-205.1 [facility] Comment on above: Order Comment: Speci men Type: BLOOD SPECIMENOrdering Facility: [facility] Address: [address] [place] [address] Performed By: #### 5 0190-8, 2276-4, 1987-09 ####[facility] LABIA [id number] [place] [address] [place] Folate SerPl-mCncon 03-23-20 Folate [Mass/Vol] 13.0 ng/mL Normal >4.7 [facility] Comment on above: Order Comment: Speci men Type: BLOOD SPECIMENOrdering Facility: [facility] Address: [address] [place] [address] Performed By: #### 2 284-8, 2132-9 ####[facility] LABIA [id number] [place] [address] [place] HCG ( test) Ql (U)o n 03-23-2024 Interpretation and review of laboratory results Normal [facility] Healthcare Preg Test, Ur Negative Negative [facility] IMMUNOGLOBULINS,IGG,IGA,IGMo n 03-23-2024 IgA [Mass/Vol] 171 mg/dL Normal 70-400 [facility] Comment on above: Order Comment: Speci men Type: BLOOD SPECIMENOrdering Facility: [facility] Address: [address] [place] [address] Performed By: #### S ERIMM ####[facility] LABCLIA [id number] [place] [address] [place] IgG [Mass/Vol] 476 mg/dL Low 700-1600 [facility] Comment on above: Order Comment: Speci men Type: BLOOD SPECIMENOrdering Facility: [facility] Address: [address] [place] [address] Performed By: #### S ERIMM ####[facility] LABCLIA [id number] [place] [address] [place] IgM [Mass/Vol] 373 mg/dL High 40-230 [facility] Comment on above: Order Comment: Speci men Type: BLOOD SPECIMENOrdering Facility: [facility] Address: [address] [place] [address] Performed By: #### S ERIMM ####[facility] LABCLIA [id number] [place] [address] [place] Iron and Iron binding capaci ty panelon 03-23-2024 Iron [Mass/Vol] 67 ug/dL Normal 41-186 [facility] Comment on above: Order Comment: Speci men Type: BLOOD SPECIMENOrdering Facility: [facility] Address: [address] [place] [address] Performed By: #### 5 0190-8, 2275-08, 1987-09 ####[facility] LABIA [id number] [place] [address] [place] Iron binding capacity [Mass/Vol] 399 ug/dL High 232-386 [facility] Comment on above: Order Comment: Speci men Type: BLOOD SPECIMENOrdering Facility: [facility] Address: [address] [place] [address] Performed By: #### 5 0190-8, 2275-08, 1987-09 ####[facility] LABIA [id number] [place] [address] [place] Iron/TIBC [Molar ratio] 16.8 % Normal 15.0-57.0 [facility] Comment on above: Order Comment: Speci men Type: BLOOD SPECIMENOrdering Facility: [facility] Address: [address] [place], [place] [address] Performed By: #### 5 0190-8, 2276-4, 1987-09 ####[facility] LABIA [id number] [address] [place] Urinalysis macro (dipstick) panel (U)on 03-23-2024 Bilirubin, UA Negative Negative - 4(70) +++ mg/dL [facility] Blood, UA Positive Negative - 50 Dusty/mcL [facility] Comment on above: large Clarity, UA Cloudy [facility] Color, UA Dark Georgie [facility] Glucose, UA Positive Negative - 2000(110) ++++ mg/dL [facility] Comment on above: 100 mg Interpretation and review of laboratory results Abnormal [facility] Ketones, UA Negative Negative - 160(16) ++++ mg/dL [facility] Leukocytes, UA Positive Negative - 500+++ Andi/mcL [facility] Comment on above: small Nitrite, UA Negative Negative - Positive [facility] pH, UA 5.5 5 - 9 [facility] Protein, UA Positive Negative - 2000(20) ++++ mg/dL [facility] Comment on above: 30 mg Spec Grav, UA 1.03 1 - 1.03 [facility] Urobilinogen, UA 0.2 0.2 - 12 mg/dL [facility] Vit B12 SerPl-ncon 024 Cobalamin (Vitamin B12) [Mass/Vol] 607 pg/mL Normal 232-1245 [facility] Comment on above: Order Comment: Speci men Type: BLOOD SPECIMENOrdering Facility: [facility] Address: [address] [place] [address] Performed By: #### 2 284-8, 2132-9 ####[facility] LABCLIA [id number] [place] [address] [place] Office Visiton 03-08-2024 Follow-up visit [id number] Ariadna Haley 1980 F Date Provider Department Center 03/08/2024 271-[address] MENDOZA [facility] Family History Problem Relation Age of Onset Heart failure Maternal Grandmother Heart attack Maternal Grandfather Family Status - Relation Status Age at Maternal Grandmother Maternal Grandfather Level of Service:87526 [place] OFFICE/OUTPATIENT NEW MODERATE MDM 45 MINUTES Normal [facility] CNPNon 02-22-2024 CNPN Normal [facility] CBC W Auto Differential pane l (Bld)on 02-21-2024 Basophils (Bld) [#/Vol] 0.03 10*3/uL Normal <0.11 [facility] Comment on above: Order Comment: Speci men Type: BLOOD SPECIMENOrdering Facility: [facility] Address: [address] [place] [address] Performed By: #### 5 7021-8 ####[facility] LABCLIA [id number] [place] [address] Basophils/100 WBC (Bld) 0.2 % Normal [facility] Comment on above: Order Comment: Speci men Type: BLOOD SPECIMENOrdering Facility: [facility] Address: [address] [place] [address] Performed By: #### 5 7021-8 ####[facility] LABCLIA [id number] [place] [address] Differential cell count method Nom (Bld) Auto Normal [facility] Comment on above: Order Comment: Speci men Type: BLOOD SPECIMENOrdering Facility: [facility] Address: [address] [place] [address] Performed By: #### 5 7021-8 ####[facility] LABCLIA [id number] [place] [address] Eosinophils (Bld) [#/Vol] 0.03 10*3/uL Normal <0.46 [facility] Comment on above: Order Comment: Speci men Type: BLOOD SPECIMENOrdering Facility: [facility] Address: [address] [place] [address] Performed By: #### 5 7021-8 ####[facility] LABCLIA [id number] [place] [address] Eosinophils/100 WBC (Bld) 0.2 % Normal [facility] Comment on above: Order Comment: Speci men Type: BLOOD SPECIMENOrdering Facility: [facility] Address: [address] [place] [address] Performed By: #### 5 7021-8 ####[facility] LABCLIA [id number] [place] [address] Erythrocyte distribution width (RBC) [Ratio] 15.1 % High 11.5-15.0 [facility] Comment on above: Order Comment: Speci men Type: BLOOD SPECIMENOrdering Facility: [facility] Address: [address] [place] [address] Performed By: #### 5 7021-8 ####[facility] LABCLIA [id number] [place] [address] Hematocrit (Bld) [Volume fraction] 41.2 % Normal 36.0-46.0 [facility] Comment on above: Order Comment: Speci men Type: BLOOD SPECIMENOrdering Facility: [facility] Address: [address] [place] [address] Performed By: #### 5 7021-8 ####[facility] LABCLIA [id number] [place] [address] Hemoglobin (Bld) [Mass/Vol] 13.8 g/dL Normal 11.5-15.5 [facility] Comment on above: Order Comment: Speci men Type: BLOOD SPECIMENOrdering Facility: [facility] Address: [address] [place] [address] Performed By: #### 5 7021-8 ####[facility] LABCLIA [id number] [place] [address] Immature granulocytes (Bld) [#/Vol] 0.15 10*3/uL High <0.10 [facility] Comment on above: Order Comment: Speci men Type: BLOOD SPECIMENOrdering Facility: [facility] Address: [address] [place] [address] Performed By: #### 5 7021-8 ####[facility] LABCLIA [id number] [place] [address] Immature granulocytes/100 WBC (Bld) 0.9 % Normal [facility] Comment on above: Order Comment: Speci men Type: BLOOD SPECIMENOrdering Facility: [facility] Address: [address] [place] [address] Performed By: #### 5 7021-8 ####[facility] LABCLIA [id number] [place] [address] Lymphocytes (Bld) [#/Vol] 1.62 10*3/uL Normal 1.00-4.00 [facility] Comment on above: Order Comment: Speci men Type: BLOOD SPECIMENOrdering Facility: [facility] Address: [address] [place] [address] Performed By: #### 5 7021-8 ####[facility] LABCLIA [id number] [place] [address] Lymphocytes/100 WBC (Bld) 9.8 % Normal [facility] Comment on above: Order Comment: Speci men Type: BLOOD SPECIMENOrdering Facility: [facility] Address: [address] [place] [address] Performed By: #### 5 7021-8 ####[facility] LABCLIA [id number] [place] [address] MCH (RBC) [Entitic mass] 30.5 pg Normal 26.0-34.0 [facility] Comment on above: Order Comment: Speci men Type: BLOOD SPECIMENOrdering Facility: [facility] Address: [address] [place] [address] Performed By: #### 5 7021-8 ####[facility] LABCLIA [id number] [place] [address] MCHC (RBC) [Mass/Vol] 33.5 g/dL Normal 30.5-36.0 [facility] Comment on above: Order Comment: Speci men Type: BLOOD SPECIMENOrdering Facility: [facility] Address: [address] [place] [address] Performed By: #### 5 7021-8 ####[facility] LABCLIA [id number] [place] [address] MCV (RBC) [Entitic vol] 91.2 fL Normal 80.0-100.0 [facility] Comment on above: Order Comment: Speci men Type: BLOOD SPECIMENOrdering Facility: [facility] Address: [address] [place] [address] Performed By: #### 5 7021-8 ####[facility] LABCLIA [id number] [place] [address] Monocytes (Bld) [#/Vol] 0.76 10*3/uL Normal <0.87 [facility] Comment on above: Order Comment: Speci men Type: BLOOD SPECIMENOrdering Facility: [facility] Address: [address] [place] [address] Performed By: #### 5 7021-8 ####[facility] LABCLIA [id number] [place] [address] Monocytes/100 WBC (Bld) 4.6 % Normal [facility] Comment on above: Order Comment: Speci men Type: BLOOD SPECIMENOrdering Facility: [facility] Address: [address] [place] [address] Performed By: #### 5 7021-8 ####[facility] LABCLIA [id number] [place] [address] Neutrophils (Bld) [#/Vol] 13.99 10*3/uL High 1.45-7.50 [facility] Comment on above: Order Comment: Speci men Type: BLOOD SPECIMENOrdering Facility: [facility] Address: [address] [place] [address] Performed By: #### 5 7021-8 ####[facility] LABCLIA [id number] [place] [address] Neutrophils/100 WBC (Bld) 84.3 % Normal [facility] Comment on above: Order Comment: Speci men Type: BLOOD SPECIMENOrdering Facility: [facility] Address: [address] [place] [address] Performed By: #### 5 7021-8 ####[facility] LABCLIA [id number] [place] [address] Nucleated RBC (Bld) [#/Vol] 10*3/uL Normal <0.01 [facility] Comment on above: Order Comment: Speci men Type: BLOOD SPECIMENOrdering Facility: [facility] Address: [address] [place] [address] Performed By: #### 5 7021-8 ####[facility] LABCLIA [id number] [place] [address] Nucleated RBC/100 WBC (Bld) [Ratio] 0.0 /100 WBC Normal [facility] Comment on above: Order Comment: Speci men Type: BLOOD SPECIMENOrdering Facility: [facility] Address: [address] [place] [address] Performed By: #### 5 7021-8 ####[facility] LABCLIA [id number] [place] [address] Platelet mean volume (Bld) [Entitic vol] 9.9 fL Normal 9.0-12.7 [facility] Comment on above: Order Comment: Speci men Type: BLOOD SPECIMENOrdering Facility: [facility] Address: [address] [place] [address] Performed By: #### 5 7021-8 ####[facility] LABIA [id number] [place] [address] Platelets (Bld) [#/Vol] 332 10*3/uL Normal 150-400 [facility] Comment on above: Order Comment: Speci men Type: BLOOD SPECIMENOrdering Facility: [facility] Address: [address] [place] [address] Performed By: #### 5 7021-8 ####[facility] LABCLIA [id number] [place] [address] RBC (Bld) [#/Vol] 4.52 10*6/uL Normal 3.90-5.20 [facility] Comment on above: Order Comment: Speci men Type: BLOOD SPECIMENOrdering Facility: [facility] Address: [address] [place] [address] Performed By: #### 5 7021-8 ####[facility] LABCLIA [id number] [place] [address] WBC (Bld) [#/Vol] 16.58 10*3/uL High 3.70-11.00 [facility] Comment on above: Order Comment: Speci men Type: BLOOD SPECIMENOrdering Facility: [facility] Address: [address] [place] [address] Performed By: #### 5 7021-8 ####[facility] LABIA [id number] [place] [address] CNNURSEon 02-21-2024 CNNURSE Normal [facility] Comprehensive metabolic 2000 panelon 02-21-2024 Albumin [Mass/Vol] 4.3 g/dL Normal 3.9-4.9 [facility] Comment on above: Order Comment: Speci men Type: BLOOD SPECIMENOrdering Facility: [facility] Address: [address] [place] [address] Performed By: #### 2 4323-8 ####[facility] LABCLIA [id number] [place] [address] ALP [Catalytic activity/Vol] 72 U/L Normal 34-123 [facility] Comment on above: Order Comment: Speci men Type: BLOOD SPECIMENOrdering Facility: [facility] Address: [address] [place] [address] Performed By: #### 2 4323-8 ####[facility] LABCLIA [id number] [place] [address] ALT [Catalytic activity/Vol] 22 U/L Normal 7-38 [facility] Comment on above: Order Comment: Speci men Type: BLOOD SPECIMENOrdering Facility: [facility] Address: [address] [place], [place] [address] Performed By: #### 2 4323-8 ####[facility] LABCLIA [id number] [place] [address] Anion gap [Moles/Vol] 13 mmol/L Normal 8-15 [facility] Comment on above: Order Comment: Speci men Type: BLOOD SPECIMENOrdering Facility: [facility] Address: [address] [place] [address] Performed By: #### 2 4323-8 ####[facility] [facility] [id number] [place] [address] AST [Catalytic activity/Vol] 9 U/L Low 13-35 [facility] Comment on above: Order Comment: Speci men Type: BLOOD SPECIMENOrdering Facility: [facility] Address: [address] [place] [address] Performed By: #### 2 4323-8 ####[facility] LABCLIA [id number] [place] [address] Bilirubin [Mass/Vol] 0.2 mg/dL Normal 0.2-1.3 [facility] Comment on above: Order Comment: Speci men Type: BLOOD SPECIMENOrdering Facility: [facility] Address: [address] [place] [address] Performed By: #### 2 4323-8 ####[facility] LABCLIA [id number] [place] [address] Calcium [Mass/Vol] 9.5 mg/dL Normal 8.5-10.2 [facility] Comment on above: Order Comment: Speci men Type: BLOOD SPECIMENOrdering Facility: [facility] Address: [address] [place] [address] Performed By: #### 2 4323-8 ####[facility] LABCLIA [id number] [place] [address] Chloride [Moles/Vol] 107 mmol/L Normal 98-107 [facility] Comment on above: Order Comment: Speci men Type: BLOOD SPECIMENOrdering Facility: [facility] Address: [address] [place] [address] Performed By: #### 2 4323-8 ####[facility] LABCLIA [id number] [place] [address] CO2 [Moles/Vol] 20 mmol/L Low 22-30 [facility] Comment on above: Order Comment: Speci men Type: BLOOD SPECIMENOrdering Facility: [facility] Address: [address] [place] [address] Performed By: #### 2 4323-8 ####[facility] LABCLIA [id number] [place] [address] Creatinine [Mass/Vol] 0.65 mg/dL Normal 0.58-0.96 [facility] Comment on above: Order Comment: Speci men Type: BLOOD SPECIMENOrdering Facility: [facility] Address: [address] [place] [address] Performed By: #### 2 4323-8 ####[facility] LABCLIA [id number] [place] [address] Creatinine and Glomerular filtration rate.predicted panel (S/P/Bld) 112 mL/min/1.73m??? Normal >=60 [facility] Comment on above: Order Comment: Speci men Type: BLOOD SPECIMENOrdering Facility: [facility] Address: [address] [place] [address] Result Comment: Erin mated Glomerular Filtration Rate [...] actual GFR. Performed By: #### 2 4323-8 ####[facility] LABCLIA [id number] [place] [address] Glucose [Mass/Vol] 215 mg/dL High 74-99 [facility] Comment on above: Order Comment: Semaj cortés Type: BLOOD SPECIMENOrdering Facility: [facility] Address: [address] [id number] Result Comment: The [place] Diabetes Association (ADA) provides guidance for cutoff [...] Standards of Medical Care in Diabetes 2016, [place] [employer]. Diabetes Care. 2016.39(Suppl 1). Performed By: #### 2 4323-8 ####[facility] LABCLIA [id number] [place] [address] Potassium [Moles/Vol] 4.2 mmol/L Normal 3.7-5.1 [facility] Comment on above: Order Comment: Semaj cortés Type: BLOOD SPECIMENOrdering Facility: [facility] Address: [address] [place] [address] Performed By: #### 2 4323-8 ####[facility] LABCLIA [id number] [place] [address] Protein [Mass/Vol] 7.2 g/dL Normal 6.3-8.0 [facility] Comment on above: Order Comment: Semaj cortés Type: BLOOD SPECIMENOrdering Facility: [facility] Address: [address] [place] [address] Performed By: #### 2 4323-8 ####[facility] LABCLIA [id number] [place] [address] Sodium [Moles/Vol] 140 mmol/L Normal 136-144 [facility] Comment on above: Order Comment: Speci men Type: BLOOD SPECIMENOrdering Facility: [facility] Address: [address] [place] [address] Performed By: #### 2 4323-8 ####[facility] LABCLIA [id number] [place] [address] Urea nitrogen [Mass/Vol] 15 mg/dL Normal 7-21 [facility] Comment on above: Order Comment: Speci men Type: BLOOD SPECIMENOrdering Facility: [facility] Address: [address] [place] [address] Performed By: #### 2 4323-8 ####[facility] LABCLIA [id number] [place] [address] ESR Westergren method (Bld) [Velocity]on 02-21-2024 ESR (Bld) [Velocity] 33 mm/h High 0-20 [facility] Comment on above: Order Comment: Speci men Type: BLOOD SPECIMENOrdering Facility: [facility] Address: [address] [place] [address] Performed By: #### 4 537-7 ####[facility] LABCLIA [id number] [place] [id number] [place] Ferritin SerPl-mCncon 2023 Ferritin [Mass/Vol] 36.3 ng/mL Normal 14.7-205.1 [facility] Comment on above: Order Comment: Speci men Type: BLOOD SPECIMENOrdering Facility: [facility] Address: [address] [place] [address] Performed By: #### 5 0190-8, 2276-4, 2132-9, 2284-8 ####[facility] LABCLIA [id number] [address] [address] [place] Folate SerPl-mCncon 02-21-20 Folate [Mass/Vol] 18.8 ng/mL Normal >4.7 [facility] Comment on above: Order Comment: Speci men Type: BLOOD SPECIMENOrdering Facility: [facility] Address: [address] [place] [address] Performed By: #### 5 0190-8, 6-4, 9, 2283-12 ####[facility] LABCLIA [id number] [place] [address] [place] Iron and Iron binding capaci ty panelon 02-21-2024 Iron [Mass/Vol] 74 ug/dL Normal 41-186 [facility] Comment on above: Order Comment: Speci men Type: BLOOD SPECIMENOrdering Facility: [facility] Address: [address] [place] [address] Performed By: #### 5 0190-8, 6-4, 9, 2283-12 ####[facility] LABIA [id number] [place] [address] [place] Iron binding capacity [Mass/Vol] 422 ug/dL High 232-386 [facility] Comment on above: Order Comment: Speci men Type: BLOOD SPECIMENOrdering Facility: [facility] Address: [address] [place] [address] Performed By: #### 5 0190-8, 6-4, 9, 2283-12 ####[facility] LABIA [id number] [place] [id number] [place] Iron/TIBC [Molar ratio] 17.5 % Normal 15.0-57.0 [facility] Comment on above: Order Comment: Speci men Type: BLOOD SPECIMENOrdering Facility: [facility] Address: [address] [place] [address] Performed By: #### 5 0190-8, 6-4, 9, 2283-12 ####[facility] LABCLIA [id number] [place] [address] [place] Vit B12 SerPl-mCncon 024 Cobalamin (Vitamin B12) [Mass/Vol] 560 pg/mL Normal 232-1245 [facility] Comment on above: Order Comment: Speci men Type: BLOOD SPECIMENOrdering Facility: [facility] Address: [address] [place] [address] Performed By: #### 5 0190-8, 2275-4, 2132-01, 2283-12 ####[facility] LABCLIA [id number] [place] [address] [place] CNPNon 02-18-2024 CNPN Normal [facility] HCG ( test) IA.chandai d Ql (U)Ordered By: Adolfo Kang on 02-16-2024 HCG ( test) Ql (U) Negative [facility] HCG,Urineon 02-16-2024 Beta HCG ( test) Ql (U) Negative Normal [facility] Comment on above: Result Comment: PERF ORMED BY: [place] [address] PATHOLOGIST BOAT MASTER OFE CANNON M.D. Performed By: #### U HCG #### [address] CNPNon 02-15-2024 CNPN Normal [facility] ECG 12 Leadon 07-13-2023 ECG revealed normal sinus rhythm [facility] Work Phone: CBC AUTO DIFFon 09-24-2022 BASO # 0.1 103/ul Normal 0.0-0.1 [facility] Comment on above: Performed By: #### U AMIC #### [facility] [address] [address] [address] Manda York Basophils/100 WBC (Bld) 0.6 % Normal 0.2-2.0 [facility] Comment on above: Performed By: #### U AMIC #### [facility] [address] [address] [address] Manda York EO # 0.1 103/ul Normal 0.0-0.7 [facility] Comment on above: Performed By: #### U AMIC #### [facility] [address] [place] [address] Dr. Manda York Eosinophils/100 WBC (Bld) 0.6 % Critically low 0.9-7.0 [facility] Comment on above: Performed By: #### U AMIC #### [facility] [address] [place] [address] Dr. Manda York Erythrocyte distribution width (RBC) [Ratio] 14.6 % Normal 11.0-15.0 [facility] Comment on above: Performed By: #### U AMIC #### [facility] [address] [place] [address] Dr. Manda York Hematocrit (Bld) [Volume fraction] 43.4 % Normal 36.0-48.0 [facility] Comment on above: Performed By: #### U AMIC #### [facility] [address] [place] [address] Dr. Manda York Hemoglobin (Bld) [Mass/Vol] 13.7 g/dL Normal 12.0-16.0 [facility] Comment on above: Performed By: #### U AMIC #### [facility] [address] [place] [address] Dr. Manda York IG # 0.12 10e3/ul Critically high 0.00-0.03 [facility] Comment on above: Performed By: #### U AMIC #### [facility] [address] [place] [address] Dr. Manda York IG % 0.8 % Critically high 0.0-0.5 [facility] Comment on above: Performed By: #### U AMIC #### [facility] [address] [place] [address] Dr. Manda York LYMPH # 2.6 103/ul Normal 1.2-3.8 [facility] Comment on above: Performed By: #### U AMIC #### [facility] [address] [place] [address] Dr. Manda York Lymphocytes/100 WBC (Bld) 18.3 % Critically low 20.5-60.0 [facility] Comment on above: Performed By: #### U AMIC #### [facility] [address] [place] [address] Dr. Manda York MANUAL DIFF REQ NO Normal [facility] Comment on above: Performed By: #### U AMIC #### [facility] [address] [place] [address] Dr. Manda York MCH (RBC) [Entitic mass] 29.0 pg Normal 26.7-34.0 [facility] Comment on above: Performed By: #### U AMIC #### [facility] [address] [place] [address] Dr. Manda York MCHC (RBC) [Mass/Vol] 31.6 g/dL Normal 29.9-35.2 [facility] Comment on above: Performed By: #### U AMIC #### [facility] [address] [place] [address] Dr. Manda York MCV (RBC) [Entitic vol] 91.8 fL Normal 81.0-99.0 [facility] Comment on above: Performed By: #### U AMIC #### [facility] [address] [place] [address] Dr. Manda York MONO # 0.7 103/ul Normal 0.3-0.8 [facility] Comment on above: Performed By: #### U AMIC #### [facility] [address] [place] [address] Dr. Manda York Monocytes/100 WBC (Bld) 5.1 % Normal 1.7-12.0 [facility] Comment on above: Performed By: #### U AMIC #### [facility] [address] [place] [address] Dr. Manda York NEUT # 10.6 103/ul Critically high 1.4-6.5 [facility] Comment on above: Performed By: #### U AMIC #### [facility] [address] [address] [address] Manda York Neutrophils/100 WBC (Bld) 74.6 % Normal 43.0-75.0 [facility] Comment on above: Performed By: #### U AMIC #### [facility] [address] [address] [address] Manda York Platelet mean volume (Bld) [Entitic vol] 9.4 fL Critically low 9.5-13.5 [facility] Comment on above: Performed By: #### U AMIC #### [facility] [address] [place] [address] Dr. Manda York PLT 307 103/ul Normal 150-450 [facility] Comment on above: Performed By: #### U AMIC #### [facility] [address] [place] [address] Dr. Manda York RBC 4.73 106/ul Normal 4.20-5.40 [facility] Comment on above: Performed By: #### U AMIC #### [facility] [address] [place] [address] Dr. Manda York WBC 14.2 103/ul Critically high 4.0-11.0 [facility] Comment on above: Performed By: #### U AMIC #### [facility] [address] [place] [address] Dr. Manda York FREE T4on 09-24-2022 Free T4 [Mass/Vol] 1.31 ng/dL Normal 0.76-1.46 [facility] Comment on above: Performed By: #### F T4 #### [facility] [address] [place] [address] Dr. Manda York GLYCOHEMOGLOBIN A1Con 2022 ADA RECOMMENDATION SEE BELOW Normal [facility] Comment on above: Result Comment: ADA RECOMMENDED LIMIT 4.0 - 6.0 ADA THERAPEUTIC TARGET < 7.0 ACTION SUGGESTED > 7.0 Performed By: #### A 1C #### [facility] [address] [place] [address] Dr. Manda York Glucose [Mass/Vol] 120 mg/dL Normal [facility] Comment on above: Performed By: #### A 1C #### [facility] [address] [place] [address] Dr. Manda York HbA1c (Bld) [Mass fraction] 5.8 % Normal 4.5-6.2 [facility] Comment on above: Performed By: #### A 1C #### [facility] [address] [place] [address] Dr. Manda York PREG QUANT HCGon 09-24-2022 HCG QUANT <1 Normal [facility] Comment on above: Performed By: #### F T4 #### [facility] [address] [place] [address] Dr. Manda York HCG RANGE SEE BELOW Normal [facility] Comment on above: Result Comment: 5-50 0.2-1 WEEK 50-500 1-2 WEEKS 100-5,000 2-3 WEEKS 500-10,000 3-4 WEEKS 1,000-50,000 4-5 WEEKS 10,000-100,000 5-6 WEEKS 15,000-200,000 6-8 WEEKS 10,000-100,000 2-3 MONTHS Performed By: #### F T4 #### [facility] [address] [place] [address] Dr. Manda York PROTIMEon 09-24-2022 INR Coag (PPP) [Relative time] {INR} Normal [facility] Comment on above: Performed By: #### F T4 #### [facility] [address] [place] [address] Dr. Manda York INR GUIDELINES SEE BELOW Normal [facility] Comment on above: Result Comment: SHERRY RED INR: 2.0 - 3.0 CONDITIONS NOT LISTED BELOW 2.5 - 3.5 FOR PROSTHETIC HEART VALVE REPLACEMENT 2.5 - 3.5 RECURRENT THROMBOSIS Performed By: #### F T4 #### [facility] [address] [place] [address] Dr. Manda York PT Coag (PPP) [Time] 9.6 s Normal 9.0-11.6 [facility] Comment on above: Performed By: #### F T4 #### [facility] [address] [address] [address] Manda York PTTon 09-24-2022 aPTT Coag (Bld) [Time] 28.2 s Normal 22.3-36.2 [facility] Comment on above: Performed By: #### F T4 #### [facility] [id number] Manda York TSHon 09-24-2022 TSH 0.300 uIU/mL Critically low 0.358-3.740 [facility] Comment on above: Performed By: #### F T4 #### [facility] [address] [address] [address] Manda York US PELVIS TRANSVAGon 023 [...] by: AURORA SHAIKH Date: 2022-09-24 17:50 Normal [facility] PAP ACOG PANEL 2: 30 to 65on 09-18-2022 . . Normal [facility] Comment on above: Result Comment: Perf ormed at: WB Performed By: #### F T4 #### [facility] [address] [address] [address] Manda York Age Gdln ACOG Testing 30-65 Normal [facility] Comment on above: Performed By: #### F T4 #### [facility] [address] [address] [address] Manda York DIAGNOSIS: Comment Normal [facility] Comment on above: Result Comment: NEGA TIVE FOR INTRAEPITHELIAL LESION OR MALIGNANCY. Performed at: WB Performed By: #### F T4 #### [facility] [address] [address] [address] Manda York HPV Aptima Negative Normal Negative [facility] Comment on above: Result Comment: This nucleic acid amplification test detects fourteen high-risk HPV types (16,18,31,33,35,39,45,51,52,56,58,59,66,68) without differentiation. Performed at: =G Performed By: #### F T4 #### [facility] [address] [address] [address] Manda York HPV Genotype Reflex Comment Normal [facility] Comment on above: Result Comment: Crit eria not met, HPV Genotype not performed. Performed at: WB Performed By: #### F T4 #### [facility] [address] [address] [address] Manda York Methodology: Comment Normal [facility] Comment on above: Result Comment: This liquid based ThinPrep(R) pap test was screened with the use of an image guided system. Performed at: WB Performed By: #### F T4 #### [facility] [address] [address] [address] Manda York Note: Comment Normal [facility] Comment on above: Result Comment: The [...] WB Performed By: #### F T4 #### [facility] [address] [address] [address] Manda York Performed by: Comment Normal [facility] Comment on above: Result Comment: Lorena Peters, Geographic Information System Surveyor (ASCP) Performed at: WB Performed By: #### F T4 #### [facility] [address] [place], [place] [address] Dr. Manda York Specimen adequacy: Comment Normal [facility] Comment on above: Result Comment: Sati sfactory for evaluation. Endocervical and/or squamous metaplastic cells (endocervical component) are present. Performed at: WB Performed By: #### F T4 #### [facility] [address] [place], [place] [address] Dr. Manda York Cytology Cervical or vaginal smear or scraping studyOrdered By: Hazel Torres on 09-10-2022 [facility] MG MAMM SCREEN 3D SELENE CADon 09-01-2022 MG MAMM SCREEN 3D SELENE CAD Patient: ARIADNA HALEY Exam Date: 09/01/2022 : 1980 Gender:F Ordering : DR MANUEL FERRIS . Admission #: [id number] Family : Order #: [id number] CLICK HERE TO VIEW EXAM RADIOLOGY REPORT [...] stomach cancer at age 56. LOCATION: [facility] BREAST COMPOSITION: Scattered areas fibroglandular density. [...] M.D. on 09/02/2022 at 12:32 Normal [facility] MRI KNEE RT WO CONon 022 [...] 5. Moderate-sized hemarthrosis. Electronically authenticated by: MANUEL READER Date: 2022-04-01 08:24 Normal [facility] PNEUMOCOCCAL IGG ABS, 23 SER OTYPESon 03-21-2022 Pneumococcal Interpretation See Note [facility] S. pneumoniae 1 IgG (S) [Mass/Vol] 0.27 ug/mL [facility] S. pneumoniae 12 IgG (S) [Mass/Vol] 0.08 ug/mL [facility] S. pneumoniae 14 IgG (S) [Mass/Vol] 0.19 ug/mL [facility] S. pneumoniae 17 IgG (S) [Mass/Vol] 1.72 ug/mL [facility] S. pneumoniae 19 IgG (S) [Mass/Vol] 1.52 ug/mL [facility] S. pneumoniae 2 IgG (S) [Mass/Vol] 0.44 ug/mL [facility] S. pneumoniae 20 IgG (S) [Mass/Vol] 1.53 ug/mL [facility] S. pneumoniae 22 IgG (S) [Mass/Vol] 0.99 ug/mL [facility] S. pneumoniae 23 IgG (S) [Mass/Vol] 0.14 ug/mL [facility] S. pneumoniae 3 IgG (S) [Mass/Vol] 0.36 ug/mL [facility] S. pneumoniae 34 IgG (S) [Mass/Vol] 5.77 ug/mL [facility] S. pneumoniae 4 IgG (S) [Mass/Vol] 0.06 ug/mL [facility] S. pneumoniae 43 IgG (S) [Mass/Vol] 0.93 ug/mL [facility] S. pneumoniae 5 IgG (S) [Mass/Vol] 0.89 ug/mL [facility] S. pneumoniae 8 IgG (S) [Mass/Vol] 0.58 ug/mL [facility] S. pneumoniae 9 IgG (S) [Mass/Vol] 0.4 ug/mL [facility] S. pneumoniae Uzbek type 15B IgG (S) [Mass/Vol] 8.27 ug/mL [facility] S. pneumoniae Uzbek type 18C IgG (S) [Mass/Vol] 0.39 ug/mL [facility] S. pneumoniae Uzbek type 19A IgG (S) [Mass/Vol] 17.72 ug/mL [facility] S. pneumoniae Uzbek type 33F IgG (S) [Mass/Vol] 3.04 ug/mL [facility] S. pneumoniae Uzbek type 6B IgG (S) [Mass/Vol] 0.82 ug/mL [facility] S. pneumoniae Uzbek type 7F IgG (S) [Mass/Vol] 0.34 ug/mL [facility] S. pneumoniae Uzbek type 9V IgG (S) [Mass/Vol] 0.78 ug/mL [facility] XR KNEE RT 4V or >on [...] by: KRISTINA GARRETT Date: 2022-03-21 16:47 Normal [facility] DIPHTHER/TETANUS ABon 2021 C. diphtheriae IgG Qn (S) 0.1 IU/mL [facility] C. tetani toxoid IgG IA Qn 1 IU/mL [facility] IGA BLDon 03-18-2022 IgA [Mass/Vol] 182 mg/dL 70 - 400 mg/dL [facility] IGE Don 03-18-2022 IgE Qn 12.3 kU/l <114.0 kU/l [facility] IGGon 03-18-2022 IgG [Mass/Vol] 618 mg/dL Low 700 - 1,600 mg/dL [facility] IGMon 03-18-2022 IgM [Mass/Vol] 514 mg/dL High 40 - 230 mg/dL [facility] Immunodeficiency panel FC (B ld)on 03-18-2022 CD3 cells (Bld) [#/Vol] 2841 cells/uL High 958 - 2,388 cells/uL [facility] CD3 cells/100 cells (Bld) 81 % 60 - 89 % [facility] CD3+CD4+ (T4 helper) cells (Bld) [#/Vol] 1621 cells/uL 533 - 1,674 cells/uL [facility] CD3+CD4+ (T4 helper) cells/100 cells (Bld) 46 % 34 - 61 % [facility] CD3+CD4+ (T4 helper) cells/CD3+CD8+ (T8 suppressor cells) cells (Bld) [# ratio] 1.55 % 1.10 - 3.25 [facility] CD3+CD8+ (T8 suppressor cells) cells (Bld) [#/Vol] 1049 cells/uL High 175 - 958 cells/uL [facility] CD3+CD8+ (T8 suppressor cells) cells/100 cells (Bld) 30 % 10 - 41 % [facility] CD3-CD16+CD56+ (Natural killer) cells (Bld) [#/Vol] 193 cells/uL 102 - 565 cells/uL [facility] CD3-CD16+CD56+ (Natural killer) cells/100 cells (Bld) 5 % 5 - 25 % [facility] CD3-CD19+ cells (Bld) [#/Vol] 475 cells/uL 75 - 660 cells/uL [facility] CD3-CD19+ cells/100 cells (Bld) 13 % 5 - 22 % [facility] CBC W Auto Differential pane l (Bld)on 03-17-2022 Basophils (Bld) [#/Vol] 0.07 10*3/uL <0.11 k/uL [facility] Basophils/100 WBC (Bld) 0.6 % [facility] Differential cell count method Nom (Bld) Auto [facility] Eosinophils (Bld) [#/Vol] 0.18 10*3/uL <0.46 k/uL [facility] Eosinophils/100 WBC (Bld) 1.6 % [facility] Erythrocyte distribution width (RBC) [Ratio] 14.6 % 11.5 - 15.0 % [facility] Hematocrit (Bld) [Volume fraction] 40.5 % 36.0 - 46.0 % [facility] Hemoglobin (Bld) [Mass/Vol] 13.0 g/dL 11.5 - 15.5 g/dL [facility] Immature granulocytes (Bld) [#/Vol] 0.06 10*3/uL <0.10 k/uL [facility] Immature granulocytes/100 WBC (Bld) 0.5 % [facility] Lymphocytes (Bld) [#/Vol] 2.97 10*3/uL 1.00 - 4.00 k/uL [facility] Lymphocytes/100 WBC (Bld) 26.9 % [facility] MCH (RBC) [Entitic mass] 28.4 pg 26.0 - 34.0 pg [facility] MCHC (RBC) [Mass/Vol] 32.1 g/dL 30.5 - 36.0 g/dL [facility] MCV (RBC) [Entitic vol] 88.4 fL 80.0 - 100.0 fL [facility] Monocytes (Bld) [#/Vol] 0.79 10*3/uL <0.87 k/uL [facility] Monocytes/100 WBC (Bld) 7.2 % [facility] Neutrophils (Bld) [#/Vol] 6.97 10*3/uL 1.45 - 7.50 k/uL [facility] Neutrophils/100 WBC (Bld) 63.2 % [facility] Nucleated RBC (Bld) [#/Vol] <0.01 k/uL [facility] Nucleated RBC/100 WBC (Bld) [Ratio] 0.0 /100 WBC [facility] Platelet mean volume (Bld) [Entitic vol] 9.9 fL 9.0 - 12.7 fL [facility] Platelets (Bld) [#/Vol] 314 10*3/uL 150 - 400 k/uL [facility] RBC (Bld) [#/Vol] 4.58 10*6/uL 3.90 - 5.2 0 m/uL [facility] WBC (Bld) [#/Vol] 11.04 10*3/uL High 3.70 - 11 .00 k/uL [facility] ECHOCARDIO M/2D COMPLETEon 1 ECHOCARDIO M/2D COMPLETE Patient: ARIADNA HALEY Exam Date: 03/12/2022 : 1980 Gender:F Ordering : DR MANUEL FERRIS . Admission #: [id number] Family : Order #: [id number] CLICK HERE TO VIEW EXAM ECHOCARDIOGRAM REPORT [...] M.D. on 03/16/2022 at 16:47 Normal [facility] INSULINon 03-11-2022 Insulin 17.8 uIU/mL Normal 2.6-24.9 [facility] Comment on above: Performed By: #### C BC #### [facility] [address] [place] [address] Dr. Manda York CBC AUTO DIFFon 03-09-2022 BASO # 0.1 103/ul Normal 0.0-0.1 [facility] Comment on above: Performed By: #### C BC #### [facility] [address] [place] [address] Dr. Manda York Basophils/100 WBC (Bld) 0.4 % Normal 0.2-2.0 [facility] Comment on above: Performed By: #### C BC #### [facility] [address] [place] [address] Dr. Manda York EO # 0.2 103/ul Normal 0.0-0.7 [facility] Comment on above: Performed By: #### C BC #### [facility] [address] [place] [address] Dr. Manda York Eosinophils/100 WBC (Bld) 1.2 % Normal 0.9-7.0 [facility] Comment on above: Performed By: #### C BC #### [facility] [address] [place] [address] Dr. Manda York Erythrocyte distribution width (RBC) [Ratio] 14.6 % Normal 11.0-15.0 [facility] Comment on above: Performed By: #### C BC #### [facility] [address] [place] [address] Dr. Manda York Hematocrit (Bld) [Volume fraction] 39.2 % Normal 36.0-48.0 [facility] Comment on above: Performed By: #### C BC #### [facility] [address] [place] [address] Dr. Manda York Hemoglobin (Bld) [Mass/Vol] 12.7 g/dL Normal 12.0-16.0 [facility] Comment on above: Performed By: #### C BC #### [facility] [address] [place] [address] Dr. Manda York IG # 0.06 10e3/ul Critically high 0.00-0.03 [facility] Comment on above: Performed By: #### C BC #### [facility] [address] [place] [address] Dr. Manda York IG % 0.5 % Normal 0.0-0.5 [facility] Comment on above: Performed By: #### C BC #### [facility] [address] [place] [address] Dr. Manda York LYMPH # 3.7 103/ul Normal 1.2-3.8 [facility] Comment on above: Performed By: #### C BC #### [facility] [address] [place] [address] Dr. Manda York Lymphocytes/100 WBC (Bld) 31.0 % Normal 20.5-60.0 [facility] Comment on above: Performed By: #### C BC #### [facility] [address] [place] [address] Dr. Manda York MANUAL DIFF REQ NO Normal [facility] Comment on above: Performed By: #### C BC #### [facility] [address] [place] [address] Dr. Manda York MCH (RBC) [Entitic mass] 28.9 pg Normal 26.7-34.0 [facility] Comment on above: Performed By: #### C BC #### [facility] [address] [address] [address] Manda York MCHC (RBC) [Mass/Vol] 32.4 g/dL Normal 29.9-35.2 [facility] Comment on above: Performed By: #### C BC #### [facility] [address] [place] [address] Dr. Manda York MCV (RBC) [Entitic vol] 89.1 fL Normal 81.0-99.0 [facility] Comment on above: Performed By: #### C BC #### [facility] [address] [place] [address] Dr. Manda York MONO # 0.7 103/ul Normal 0.3-0.8 [facility] Comment on above: Performed By: #### C BC #### [facility] [address] [place] [address] Dr. Manda York Monocytes/100 WBC (Bld) 5.8 % Normal 1.7-12.0 [facility] Comment on above: Performed By: #### C BC #### [facility] [address] [place] [address] Dr. Manda York NEUT # 7.3 103/ul Critically high 1.4-6.5 [facility] Comment on above: Performed By: #### C BC #### [facility] [address] [place] [address] Dr. Manda York Neutrophils/100 WBC (Bld) 61.1 % Normal 43.0-75.0 [facility] Comment on above: Performed By: #### C BC #### [facility] [address] [place] [address] Dr. Manda York Platelet mean volume (Bld) [Entitic vol] 9.7 fL Normal 9.5-13.5 [facility] Comment on above: Performed By: #### C BC #### [facility] [address] [place] [address] Dr. Manda York PLT 297 103/ul Normal 150-450 [facility] Comment on above: Performed By: #### C BC #### [facility] [address] [address] [address] Manda York RBC 4.40 106/ul Normal 4.20-5.40 [facility] Comment on above: Performed By: #### C BC #### [facility] [address] [address] [address] Manda York WBC 12.0 103/ul Critically high 4.0-11.0 [facility] Comment on above: Performed By: #### C BC #### [facility] [address] [address] [address] Manda York FREE THYROXINE INDEX T7on FTI 3.81 Normal 1.30-4.50 [facility] Comment on above: Performed By: #### U AMIC #### [facility] [address] [address] [address] Manda York T3U 34.0 % Normal 30.0-39.0 [facility] Comment on above: Performed By: #### U AMIC #### [facility] [address] [address] [address] Manda York T4 [Mass/Vol] 11.20 ug/dL Normal 4.80-13.90 [facility] Comment on above: Performed By: #### U AMIC #### [facility] [address] [address] [address] Manda York GLYCOHEMOGLOBIN A1Con 2021 ADA RECOMMENDATION SEE BELOW Normal [facility] Comment on above: Result Comment: ADA RECOMMENDED LIMIT 4.0 - 6.0 ADA THERAPEUTIC TARGET < 7.0 ACTION SUGGESTED > 7.0 Performed By: #### LUIGI PATRICK #### [facility] [address] [address] [address] Manda York Glucose [Mass/Vol] 117 mg/dL Normal [facility] Comment on above: Performed By: #### LUIGI PATRICK #### [facility] [address] [address] [address] Manda York HbA1c (Bld) [Mass fraction] 5.7 % Normal 4.5-6.2 [facility] Comment on above: Performed By: #### S LUIGI MELO #### [facility] [address] [address] [address] Manda York IRONon 03-09-2022 Iron [Mass/Vol] 61.0 ug/dL Normal 50.0-170.0 [facility] Comment on above: Performed By: #### C BC #### [facility] [address] [address] [address] Manda York LIPID PROFILEon 03-09-2022 CHOL-HDL RATIO NORM SEE BELOW Normal [facility] Comment on above: Result Comment: 3.3 - 4.4 LOW RISK 4.4 - 7.1 AVERAGE RISK 7.1 - 11.0 MODERATE RISK >11.0 HIGH RISK Performed By: #### U AMIC #### [facility] [address] [address] [address] Manda York Cholesterol [Mass/Vol] 260 mg/dL Critically high <=200 [facility] Comment on above: Performed By: #### U AMIC #### [facility] [address] [address] [address] Manda York Cholesterol in HDL [Mass/Vol] 38 mg/dL Critically low 40-60 [facility] Comment on above: Performed By: #### U AMIC #### [facility] [address] [address] [address] Manda York Cholesterol in LDL [Mass/Vol] 170.8 mg/dL Normal [facility] Comment on above: Performed By: #### U AMIC #### [facility] [address] [address] [address] Manda York Cholesterol.total/Chol esterol in HDL [Mass ratio] 6.8 {ratio} Normal [facility] Comment on above: Performed By: #### U AMIC #### [facility] [address] [address] [address] Manda York HDL NORMAL > or = 60 mg/dl - LO W CARDIOVASCULAR RISK <40 mg/dl - HIGH CARDIOVASCULAR RISK Normal [facility] Comment on above: Performed By: #### U AMIC #### [facility] [address] [address] [address] Manda York LDL CALC NORMAL SEE BELOW Normal [facility] Comment on above: Result Comment: <100 mg/dl OPTIMAL 100 - 129 mg/dl NEAR OR ABOVE OPTIMAL 130 - 159 mg/dl BORDERLINE HIGH 160 - 189 mg/dl HIGH >190 mg/dl VERY HIGH Performed By: #### U AMIC #### [facility] [address] [address] [address] Manda York Triglyceride [Mass/Vol] 256 mg/dL Critically high <=150 [facility] Comment on above: Performed By: #### U AMIC #### [facility] [address] [address] [address] Manda York VLDL CALC 51.2 mg/dL Normal [facility] Comment on above: Performed By: #### U AMIC #### [facility] [address] [address] [address] Manda York PROF 14(COMP METB)on 03-09- 022 Albumin [Mass/Vol] 3.8 g/dL Normal 3.4-5.0 [facility] Comment on above: Performed By: #### U AMIC #### [facility] [address] [address] [address] Manda York Albumin/Globulin [Mass ratio] 1.0 {ratio} Normal [facility] Comment on above: Performed By: #### U AMIC #### [facility] [address] [address] [address] Manda York ALP [Catalytic activity/Vol] 66 U/L Normal 46-116 [facility] Comment on above: Performed By: #### U AMIC #### [facility] [address] [address] [address] Manda York ALT [Catalytic activity/Vol] 27 U/L Normal 14-59 [facility] Comment on above: Performed By: #### U AMIC #### [facility] [address] [address] [address] Manda York Anion gap [Moles/Vol] 11.8 mmol/L Normal [facility] Comment on above: Performed By: #### U AMIC #### [facility] [address] [address] [address] Manda York AST [Catalytic activity/Vol] 9 U/L Critically low 15-37 [facility] Comment on above: Performed By: #### U AMIC #### [facility] [address] [address] [address] Manda York Bilirubin [Mass/Vol] 0.2 mg/dL Normal 0.2-1.0 [facility] Comment on above: Performed By: #### U AMIC #### [facility] [address] [place] [address] Dr. Manda York Calcium [Mass/Vol] 9.1 mg/dL Normal 8.5-10.1 [facility] Comment on above: Performed By: #### U AMIC #### [facility] [address] [place] [address] Dr. Manda York Chloride [Moles/Vol] 101 mmol/L Normal 98-107 [facility] Comment on above: Performed By: #### U AMIC #### [facility] [address] [place] [address] Dr. Manda York CO2 [Moles/Vol] 26.1 mmol/L Normal 21.0-32.0 [facility] Comment on above: Performed By: #### U AMIC #### [facility] [address] [place] [address] Dr. Manda York Creatinine [Mass/Vol] 0.80 mg/dL Normal 0.55-1.02 [facility] Comment on above: Performed By: #### U AMIC #### [facility] [address] [address] [address] Manda York EGFR-AF MARSHALLESE >60 Normal >=60 [facility] Comment on above: Performed By: #### U AMIC #### [facility] [address] [place] [address] Dr. Manda York EGFR-NON AF MARSHALLESE >60 Normal >=60 [facility] Comment on above: Performed By: #### U AMIC #### [facility] [address] [address] [address] Manda York Globulin (S) [Mass/Vol] 3.8 g/dL Normal [facility] Comment on above: Performed By: #### U AMIC #### [facility] [address] [address] [address] Manda York Glucose [Mass/Vol] 93 mg/dL Normal 74-106 [facility] Comment on above: Performed By: #### U AMIC #### [facility] [address] [address] [address] Manda York Potassium [Moles/Vol] 3.9 mmol/L Normal 3.5-5.1 [facility] Comment on above: Performed By: #### U AMIC #### [facility] [address] [place] [address] Dr. Manda York Protein [Mass/Vol] 7.6 g/dL Normal 6.4-8.2 [facility] Comment on above: Performed By: #### U AMIC #### [facility] [address] [place] [address] Dr. Manda York Sodium [Moles/Vol] 135 mmol/L Critically low 136-145 [facility] Comment on above: Performed By: #### U AMIC #### [facility] [address] [place] [address] Dr. Manda York Urea nitrogen [Mass/Vol] 10.0 mg/dL Normal 7.0-18.0 [facility] Comment on above: Performed By: #### U AMIC #### [facility] [address] [place] [address] Dr. Manda York Urea nitrogen/Creatinine [Mass ratio] 12.5 mg/mg Normal [facility] Comment on above: Performed By: #### U AMIC #### [facility] [address] [place] [address] Dr. Manda York TSHon 03-09-2022 TSH 0.610 uIU/mL Normal 0.358-3.740 [facility] Comment on above: Performed By: #### U [facility] #### [facility] [address] [place] [address] Dr. Manda York B2 MICROGLOBULIN Bon 022 [id number]-5-[id number] [Mass/Vol] 1.8 ug/mL 0.8 - 2.4 mg/L [facility] FERRITIN BLDon 03-05-2022 Ferritin [Mass/Vol] 33.2 ng/mL 14.7 - 2 05.1 ng/mL [facility] FOLATE SERUMon 03-05-2022 Folate [Mass/Vol] 6.6 ng/mL >4.7 ng/mL [facility] Iron and Iron binding capaci ty panelon 03-05-2022 Iron [Mass/Vol] 49 ug/dL 41 - 186 ug/dL [facility] Iron binding capacity [Mass/Vol] 392 ug/dL High 232 - 386 ug/dL [facility] Iron/TIBC [Molar ratio] 12.5 % Low 15.0 - 57.0 % [facility] CBC W Auto Differential pane l (Bld)on 03-04-2022 Basophils (Bld) [#/Vol] 0.07 10*3/uL <0.11 k/uL [facility] Basophils/100 WBC (Bld) 0.6 % [facility] Differential cell count method Nom (Bld) Auto [facility] Eosinophils (Bld) [#/Vol] 0.19 10*3/uL <0.46 k/uL [facility] Eosinophils/100 WBC (Bld) 1.7 % [facility] Erythrocyte distribution width (RBC) [Ratio] 14.7 % 11.5 - 15.0 % [facility] Hematocrit (Bld) [Volume fraction] 40.0 % 36.0 - 46.0 % [facility] Hemoglobin (Bld) [Mass/Vol] 13.0 g/dL 11.5 - 15.5 g/dL [facility] Immature granulocytes (Bld) [#/Vol] 0.07 10*3/uL <0.10 k/uL [facility] Immature granulocytes/100 WBC (Bld) 0.6 % [facility] Lymphocytes (Bld) [#/Vol] 3.31 10*3/uL 1.00 - 4.00 k/uL [facility] Lymphocytes/100 WBC (Bld) 30.2 % [facility] MCH (RBC) [Entitic mass] 28.9 pg 26.0 - 34.0 pg [facility] MCHC (RBC) [Mass/Vol] 32.5 g/dL 30.5 - 36.0 g/dL [facility] MCV (RBC) [Entitic vol] 88.9 fL 80.0 - 100.0 fL [facility] Monocytes (Bld) [#/Vol] 0.70 10*3/uL <0.87 k/uL [facility] Monocytes/100 WBC (Bld) 6.4 % [facility] Neutrophils (Bld) [#/Vol] 6.63 10*3/uL 1.45 - 7.50 k/uL [facility] Neutrophils/100 WBC (Bld) 60.5 % [facility] Nucleated RBC (Bld) [#/Vol] <0.01 k/uL [facility] Nucleated RBC/100 WBC (Bld) [Ratio] 0.0 /100 WBC [facility] Platelet mean volume (Bld) [Entitic vol] 9.6 fL 9.0 - 12.7 fL [facility] Platelets (Bld) [#/Vol] 355 10*3/uL 150 - 400 k/uL [facility] RBC (Bld) [#/Vol] 4.50 10*6/uL 3.90 - 5.2 0 m/uL [facility] WBC (Bld) [#/Vol] 10.97 10*3/uL 3.70 - 11 .00 k/uL [facility] Calcium.ionized [Moles/Vol]o n 03-04-2022 Calcium.ionized (Bld) [Mass/Vol] 1.26 mmol/L 1.08 - 1.30 mmol/L [facility] Calcium.ionized adjusted to pH 7.4 (Bld) [Moles/Vol] 1.25 mmol/L 1.08 - 1.30 mmol/L [facility] Comprehensive metabolic 2000 panelon 03-04-2022 Albumin [Mass/Vol] 4.3 g/dL 3.9 - 4.9 g/dL [facility] ALP [Catalytic activity/Vol] 70 U/L 34 - 123 U/L [facility] ALT [Catalytic activity/Vol] 26 U/L 7 - 38 U/L [facility] Anion gap [Moles/Vol] 7 mmol/L Low 9 - 18 mmol/L [facility] AST [Catalytic activity/Vol] 12 U/L Low 13 - 35 U/L [facility] Bilirubin [Mass/Vol] 0.2 mg/dL 0.2 - 1 .3 mg/dL [facility] Calcium [Mass/Vol] 9.3 mg/dL 8.5 - 10. 2 mg/dL [facility] Chloride [Moles/Vol] 103 mmol/L 97 - 10 5 mmol/L [facility] CO2 [Moles/Vol] 28 mmol/L 22 - 30 mmol/L [facility] Creatinine [Mass/Vol] 0.69 mg/dL 0.58 - 0.96 mg/dL [facility] Estimated Glomerular Filtration Rate 112 mL/min/1.73m >=60 mL/min/1.73m [facility] Glucose [Mass/Vol] 100 mg/dL High 74 - 99 mg/dL [facility] Potassium [Moles/Vol] 3.9 mmol/L 3.7 - 5.1 mmol/L [facility] Protein [Mass/Vol] 7.0 g/dL 6.3 - 8.0 g/dL [facility] Sodium [Moles/Vol] 138 mmol/L 136 - 144 mmol/L [facility] Urea nitrogen [Mass/Vol] 12 mg/dL 7 - 21 mg/dL [facility] LD LACTATE DEHYDROon 022 LDH [Catalytic activity/Vol] 135 U/L 135 - 214 U/L [facility] PHOSPHORUS INORGANICon 03-04 Phosphate [Mass/Vol] 3.2 mg/dL 2.7 - 4 .8 mg/dL [facility] URIC ACID BLOODon 03-04-2022 Urate [Mass/Vol] 5.2 mg/dL 2.5 - 6.6 mg/dL [facility] IMMUNOGLOBULINS IGA/IGM/IGG/ IGE QUANTITAon 02-20-2022 Immunoglobulin A, Qn, Serum 189 mg/dL Normal 87-352 [facility] Comment on above: Result Comment: Perf ormed at: CB Performed By: #### S [facility] #### [facility] [address] [place] [address] Dr. Manda York Immunoglobulin E, Total 10 IU/mL Normal 6-495 [facility] Comment on above: Result Comment: Perf ormed at: BN Performed By: #### S LUIGI MELO #### [facility] [address] [place] [address] Dr. Manda York Immunoglobulin G, Qn, Serum 598 mg/dL Normal 586-1602 [facility] Comment on above: Result Comment: Perf ormed at: CB Performed By: #### S LEANN MELOC #### [facility] [address] [place] [address] Dr. Manda York Immunoglobulin M, Qn, Serum 493 mg/dL Critically high 26-217 [facility] Comment on above: Result Comment: Perf ormed at: CB Performed By: #### LUIGI PATRICK #### [facility] [address] [place] [address] Dr. Manda York CHRITSIAN by IFAon 02-19-2022 Antinuclear Antibodies, IFA Negative Normal [facility] Comment on above: Result Comment: Nega tive <1:80 Borderline 1:80 Positive >1:80 ICAP nomenclature: AC-0 For more information about Hep-2 cell patterns use ANApatterns.org, the official website for the International Consensus on Antinuclear Antibody (CHRISTIAN) Patterns (ICAP). Performed By: #### LUIGI PATRICK #### [facility] [address] [place] [address] Dr. Manda York THYROID ANTIBODIESon 022 Thyroglobulin Antibody <1.0 Normal 0.0-0.9 [facility] Comment on above: Result Comment: Thyr oglobulin Antibody measured by [employer] [place] Methodology Performed By: #### F T4 #### [facility] [address] [place] [address] Dr. Manda York Thyroid Peroxidase (TPO) Ab <8 Normal 0-34 [facility] Comment on above: Performed By: #### F T4 #### [facility] [address] [place] [address] Dr. Manda York PROTEIN ELECTROPHERESISon 09 -26-2022 Albumin [Mass/Vol] 3.2 g/dL Normal 2.9-4.4 [facility] Comment on above: Performed By: #### F T4 #### [facility] [address] [place] [address] Dr. Manda York Albumin/Globulin [Mass ratio] 1.0 {ratio} Normal 0.7-1.7 [facility] Comment on above: Performed By: #### F T4 #### [facility] [address] [place] [address] Dr. Manda York Dvzjm-6-Kvhnuibi 0.2 g/dL Normal 0.0-0.4 [facility] Comment on above: Performed By: #### F T4 #### [facility] [address] [place] [address] Dr. Manda York Ymxrp-1-Jzoiqigu 0.9 g/dL Normal 0.4-1.0 [facility] Comment on above: Performed By: #### F T4 #### [facility] [address] [place] [address] Dr. Manda York Beta Globulin 1.2 g/dL Normal 0.7-1.3 [facility] Comment on above: Performed By: #### F T4 #### [facility] [address] [place] [address] Dr. Manda York Gamma Globulin 0.9 g/dL Normal 0.4-1.8 [facility] Comment on above: Performed By: #### F T4 #### [facility] [address] [place] [address] Dr. Manda York Globulin (S) [Mass/Vol] 3.2 g/dL Normal 2.2-3.9 [facility] Comment on above: Performed By: #### F T4 #### [facility] [address] [place] [address] Dr. Manda York M-Jose De Jesus Not Observed Normal Not Observed [facility] Comment on above: Performed By: #### F T4 #### [facility] [address] [place] [address] Dr. Manda York PDF . Normal [facility] Comment on above: Performed By: #### F T4 #### [facility] [address] [place] [address] Dr. 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 Performed By: #### F T4 #### [facility] [address] [place] [address] Dr. Manda York Protein [Mass/Vol] 6.4 g/dL Normal 6.0-8.5 [facility] Comment on above: Performed By: #### F T4 #### [facility] [address] [place] [address] Dr. Manda York SLE PROFILE Aon 02-16-2022 Anti-DNA (DS) Ab Qn 9 IU/mL Normal 0-9 [facility] Comment on above: Result Comment: Nega tive <5 Equivocal 5 - 9 Positive >9 Performed By: #### LUIGI PATRICK #### [facility] [address] [place] [address] Dr. Manda York Antichromatin Antibodies <0.2 Normal 0.0-0.9 [facility] Comment on above: Performed By: #### LUIGI PATRICK #### [facility] [address] [place] [address] Dr. Manda York RA Latex Turbid. <10.0 Normal <14.0 [facility] Comment on above: Performed By: #### LEANN PATRICKC #### [facility] [address] [address] [address] Manda York TECHNICAL SOLUTIONS DIRECTOR Antibodies <0.2 Normal 0.0-0.9 [facility] Comment on above: Performed By: #### LEANN PATRICKC #### [facility] [address] [place] [address] Dr. Manda York Sjogren's Anti-SS-A <0.2 Normal 0.0-0.9 [facility] Comment on above: Performed By: #### LEANN PATRICKC #### [facility] [address] [address] [address] Manda York Sjogren's Anti-SS-B <0.2 Normal 0.0-0.9 [facility] Comment on above: Performed By: #### LUIGI PATRICK #### [facility] [address] [place] [address] Dr. Manda York Schneider Antibodies <0.2 Normal 0.0-0.9 [facility] Comment on above: Performed By: #### LUIGI PATRICK #### [facility] [address] [place] [address] Dr. Manda York ANTISTREPTOLYSIN O AB (ASO)o n 02-15-2022 Antistreptolysin O Ab 49.6 IU/mL Normal 0.0-200.0 [facility] Comment on above: Performed By: #### A SOAB #### [facility] [address] [place] [address] Dr. Manda York MICROALBUMIN URINEon 022 Albumin, Urine <3.0 Normal Not Estab. [facility] Comment on above: Result Comment: Ve rified by repeat analysis Performed By: #### C BC #### [facility] [address] [place] [address] Dr. Manda York T4, T3U, FTI LABCORPon 02-15 Free Thyroxine Index 2.6 Normal 1.2-4.9 [facility] Comment on above: Performed By: #### LUIGI PATRICK #### [facility] [address] [place] [address] Dr. Manda York T3 Uptake 26 % Normal 24-39 [facility] Comment on above: Performed By: #### LUIGI PATRICK #### [facility] [address] [place] [address] Dr. Manda York T4 [Mass/Vol] 9.9 ug/dL Normal 4.5-12.0 [facility] Comment on above: Performed By: #### LUIGI PATRICK #### [facility] [address] [place] [address] Dr. Manda York CBC AUTO DIFFon 02-14-2022 BASO # 0.1 103/ul Normal 0.0-0.1 [facility] Comment on above: Performed By: #### U AMIC #### [facility] [address] [address] [address] Manda York Basophils/100 WBC (Bld) 0.6 % Normal 0.2-2.0 [facility] Comment on above: Performed By: #### U AMIC #### [facility] Laboratory [address] [address] [address] Manda York EO # 0.3 103/ul Normal 0.0-0.7 [facility] Comment on above: Performed By: #### U AMIC #### [facility] [address] [place] [address] Dr. Manda York Eosinophils/100 WBC (Bld) 3.4 % Normal 0.9-7.0 [facility] Comment on above: Performed By: #### U AMIC #### [facility] [address] [place] [address] Dr. Manda York Erythrocyte distribution width (RBC) [Ratio] 14.6 % Normal 11.0-15.0 [facility] Comment on above: Performed By: #### U AMIC #### [facility] [address] [place] [address] Dr. Manda York Hematocrit (Bld) [Volume fraction] 39.1 % Normal 36.0-48.0 [facility] Comment on above: Performed By: #### U AMIC #### [facility] [address] [place] [address] Dr. Manda York Hemoglobin (Bld) [Mass/Vol] 12.4 g/dL Normal 12.0-16.0 [facility] Comment on above: Performed By: #### U AMIC #### [facility] [address] [place] [address] Dr. Manda York IG # 0.03 10e3/ul Normal 0.00-0.03 [facility] Comment on above: Performed By: #### U AMIC #### [facility] [address] [address] [address] Manda York IG % 0.3 % Normal 0.0-0.5 [facility] Comment on above: Performed By: #### U AMIC #### [facility] [address] [address] [address] Manda York LYMPH # 3.6 103/ul Normal 1.2-3.8 [facility] Comment on above: Performed By: #### U AMIC #### [facility] [address] [place] [address] Dr. Manda York Lymphocytes/100 WBC (Bld) 39.9 % Normal 20.5-60.0 [facility] Comment on above: Performed By: #### U AMIC #### [facility] [address] [place] [address] Dr. Manda York MANUAL DIFF REQ NO Normal [facility] Comment on above: Performed By: #### U AMIC #### [facility] [address] [address] [address] Manda York MCH (RBC) [Entitic mass] 28.4 pg Normal 26.7-34.0 [facility] Comment on above: Performed By: #### U AMIC #### [facility] [address] [place] [address] Dr. Manda York MCHC (RBC) [Mass/Vol] 31.7 g/dL Normal 29.9-35.2 [facility] Comment on above: Performed By: #### U AMIC #### [facility] [address] [place] [address] Dr. Manda York MCV (RBC) [Entitic vol] 89.7 fL Normal 81.0-99.0 [facility] Comment on above: Performed By: #### U AMIC #### [facility] [address] [place] [address] Dr. Manda York MONO # 0.7 103/ul Normal 0.3-0.8 [facility] Comment on above: Performed By: #### U AMIC #### [facility] [address] [address] [address] Manda York Monocytes/100 WBC (Bld) 7.3 % Normal 1.7-12.0 [facility] Comment on above: Performed By: #### U AMIC #### [facility] [address] [place] [address] Dr. Manda York NEUT # 4.4 103/ul Normal 1.4-6.5 [facility] Comment on above: Performed By: #### U AMIC #### [facility] [address] [place] [address] Dr. Manda York Neutrophils/100 WBC (Bld) 48.5 % Normal 43.0-75.0 [facility] Comment on above: Performed By: #### U AMIC #### [facility] [address] [place] [address] Dr. Manda York Platelet mean volume (Bld) [Entitic vol] 10.1 fL Normal 9.5-13.5 [facility] Comment on above: Performed By: #### U AMIC #### [facility] [address] [place] [address] Dr. Manda York PLT 310 103/ul Normal 150-450 [facility] Comment on above: Performed By: #### U AMIC #### [facility] [address] [place] [address] Dr. Manda York RBC 4.36 106/ul Normal 4.20-5.40 [facility] Comment on above: Performed By: #### U AMIC #### [facility] [address] [place] [address] Dr. Manda York WBC 9.0 103/ul Normal 4.0-11.0 [facility] Comment on above: Performed By: #### U AMIC #### [facility] [address] [place] [address] Dr. Manda York CRPon 02-14-2022 CRP [Mass/Vol] mg/L Normal <=1.0 [facility] Comment on above: Performed By: #### U AMIC #### [facility] [address] [place] [address] Dr. Manda York CULTURE URINEon 02-14-2022 CULTURE URINE Culture Observations : LIGHT GROWTH OF MIXED GENITAL AMBER. NO POTENTIAL PATHOGENS SEEN. Normal [facility] Comment on above: Performed By: #### C BC #### [facility] [address] [place] [address] Dr. Manda York PROF 14(COMP METB)on 022 Albumin [Mass/Vol] 3.5 g/dL Normal 3.4-5.0 [facility] Comment on above: Performed By: #### U AMIC #### [facility] [address] [place] [address] Dr. Manda York Albumin/Globulin [Mass ratio] 1.0 {ratio} Normal [facility] Comment on above: Performed By: #### U AMIC #### [facility] [address] [place] [address] Dr. Manda York ALP [Catalytic activity/Vol] 71 U/L Normal 46-116 [facility] Comment on above: Performed By: #### U AMIC #### [facility] [address] [place] [address] Dr. Manda York ALT [Catalytic activity/Vol] 46 U/L Normal 14-59 [facility] Comment on above: Performed By: #### U AMIC #### [facility] [address] [place] [address] Dr. aMnda York Anion gap [Moles/Vol] 11.6 mmol/L Normal [facility] Comment on above: Performed By: #### U AMIC #### [facility] [address] [place] [address] Dr. Manda York AST [Catalytic activity/Vol] 15 U/L Normal 15-37 [facility] Comment on above: Performed By: #### U AMIC #### [facility] [address] [place] [address] Dr. Manda York Bilirubin [Mass/Vol] 0.2 mg/dL Normal 0.2-1.0 [facility] Comment on above: Performed By: #### U AMIC #### [facility] [address] [address] [address] Manda York Calcium [Mass/Vol] 8.7 mg/dL Normal 8.5-10.1 [facility] Comment on above: Performed By: #### U AMIC #### [facility] [address] [address] [address] Manda York Chloride [Moles/Vol] 104 mmol/L Normal 98-107 [facility] Comment on above: Performed By: #### U AMIC #### [facility] [address] [address] [address] Manda York CO2 [Moles/Vol] 25.1 mmol/L Normal 21.0-32.0 [facility] Comment on above: Performed By: #### U AMIC #### [facility] [address] [place] [address] Dr. Manda York Creatinine [Mass/Vol] 0.80 mg/dL Normal 0.55-1.02 [facility] Comment on above: Performed By: #### U AMIC #### [facility] [address] [address] [address] Manda York EGFR-AF MARSHALLESE >60 Normal >=60 [facility] Comment on above: Performed By: #### U AMIC #### [facility] [address] [place] [address] Dr. Manda York EGFR-NON AF MARSHALLESE >60 Normal >=60 [facility] Comment on above: Performed By: #### U AMIC #### [facility] [address] [address] [address] Manda York Globulin (S) [Mass/Vol] 3.6 g/dL Normal [facility] Comment on above: Performed By: #### U AMIC #### [facility] [address] [address] [address] Manda York Glucose [Mass/Vol] 92 mg/dL Normal 74-106 [facility] Comment on above: Performed By: #### U AMIC #### [facility] [address] [address] [address] Manda York Potassium [Moles/Vol] 3.7 mmol/L Normal 3.5-5.1 [facility] Comment on above: Performed By: #### U AMIC #### [facility] [address] [address] [address] Manda York Protein [Mass/Vol] 7.1 g/dL Normal 6.4-8.2 [facility] Comment on above: Performed By: #### U AMIC #### [facility] [address] [address] [address] Manda York Sodium [Moles/Vol] 137 mmol/L Normal 136-145 [facility] Comment on above: Performed By: #### U AMIC #### [facility] [address] [place] [address] Dr. Manda York Urea nitrogen [Mass/Vol] 17.0 mg/dL Normal 7.0-18.0 [facility] Comment on above: Performed By: #### U AMIC #### [facility] [address] [address] [address] Manda York Urea nitrogen/Creatinine [Mass ratio] 21.2 mg/mg Normal [facility] Comment on above: Performed By: #### U AMIC #### [facility] [address] [place] [address] Dr. Manda [facility] mm/hr Critically high <=20 [facility] Comment on above: Performed By: #### S EDR #### [facility] [address] [place] [address] Dr. Manda York TSHon 02-14-2022 TSH 1.155 uIU/mL Normal 0.358-3.740 [facility] Comment on above: Performed By: #### U AMIC #### [facility] [address] [place] [address] Dr. Manda York UA RANDOM W/MICROSCOPICon BACTERIA NONE SEEN Normal NONE SEEN [facility] Comment on above: Performed By: #### U AMIC #### [facility] [address] [place] [address] Dr. Manda York Bilirubin Ql (U) Negative Normal NEGATIVE [facility] Comment on above: Performed By: #### U AMIC #### [facility] [address] [address] [address] Manda York CAST NONE SEEN Normal NONE SEEN [facility] Comment on above: Performed By: #### U AMIC #### [facility] [address] [address] [address] Manda York Clarity (U) CLEAR Normal CLEAR [facility] Comment on above: Performed By: #### U AMIC #### [facility] [address] [address] [address] Manda York Color (U) LT. YELLOW Normal YELLOW [facility] Comment on above: Performed By: #### U AMIC #### [facility] [address] [place] [address] Dr. Manda York Crystals LM Nom (Urine sed) NONE SEEN Normal NONE SEEN [facility] Comment on above: Performed By: #### U AMIC #### [facility] [address] [address] [address] Manda York Epithelial cells LM Ql (Urine sed) RARE Normal NONE SEEN /RARE [facility] Comment on above: Performed By: #### U AMIC #### [facility] [address] [address] [address] Manda York Glucose Ql (U) Negative Normal NEGATIVE [facility] Comment on above: Performed By: #### U AMIC #### [facility] [address] [address] [address] Manda York Hemoglobin Ql (U) Negative Normal NEGATIVE [facility] Comment on above: Performed By: #### U AMIC #### [facility] [address] [address] [address] Manda York Ketones Ql (U) Negative Normal NEGATIVE [facility] Comment on above: Performed By: #### U AMIC #### [facility] [address] [address] [address] Manda York LEUKOCYTES Negative Normal NEGATIVE [facility] Comment on above: Performed By: #### U AMIC #### [facility] [address] [address] [address] Manda York MUCOUS NONE SEEN Normal NONE SEEN [facility] Comment on above: Performed By: #### U AMIC #### [facility] [address] [place] [address] Dr. Manda York Nitrite Ql (U) Negative Normal NEGATIVE [facility] Comment on above: Performed By: #### U AMIC #### [facility] [address] [place] [address] Dr. Manda York pH (U) 6.0 [pH] Normal 5-9 [facility] Comment on above: Performed By: #### U AMIC #### [facility] [address] [place] [address] Dr. Manda York RBC NONE SEEN Abnormal 0-2 [facility] Comment on above: Performed By: #### U AMIC #### [facility] [address] [place] [address] Dr. Manda York SPEC GRAVITY 1.005 Normal 1.005-<=1.025 [facility] Comment on above: Performed By: #### U AMIC #### [facility] [address] [place] [address] Dr. Manda York UA PROTEIN Negative Normal NEGATIVE/ TRACE [facility] Comment on above: Performed By: #### U AMIC #### [facility] [address] [place] [address] Dr. Manda York Urobilinogen Qn (U) 0.2 {Carmella'U}/dL Normal 0.2 - 1. 0 [facility] Comment on above: Performed By: #### U AMIC #### [facility] [address] [place] [address] Dr. Manda York WBC NONE SEEN Normal NONE SEEN [facility] Comment on above: Performed By: #### U AMIC #### [facility] [address] [place] [address] Dr. Manda York URIC ACID SERUMon 02-14-2022 Urate [Mass/Vol] 4.2 mg/dL Normal 2.6-6.0 [facility] Comment on above: Performed By: #### U AMIC #### [facility] [address] [place] [address] Dr. Manda York VITAMIN D 25 OHon 02-14-2022 VIT D 25-OH 22.4 ng/mL Normal [facility] Comment on above: Performed By: #### F T4 #### [facility] [address] [place] [address] Dr. Manda York VIT D RANGES SEE BELOW Normal [facility] Comment on above: Result Comment: <20 ng/mL Vit D deficient 20 - <30 ng/mL Vit D insufficient 30 - 100 ng/mL Vit D sufficient >100 ng/mL Potential Toxicity Performed By: #### F T4 #### [facility] [address] [place] [address] Dr. Manda York METANEPHRINES FRAC. QNT 24 H R URINEon 11-28-2021 Metanephrine, U,24hr Comment Normal 36-209 [facility] Comment on above: Result Comment: No t otal volume submitted. Unable to calculate 24 hour result. Performed By: #### S LUIGI MELO #### [facility] [address] [place] [address] Dr. Manda York Metanephrine, Ur 57 ug/L Normal Undefined [facility] Comment on above: Performed By: #### S LEANN MELOC #### [facility] [address] [place] [address] Dr. Manda York Normetanephr.,U,24h Comment Normal 131-612 [facility] Comment on above: Result Comment: No t otal volume submitted. Unable to calculate 24 hour result. Performed By: #### S LEANN MELOC #### [facility] [address] [place] [address] Dr. Manda York Normetanephrine, Ur 116 ug/L Normal Undefined [facility] Comment on above: Performed By: #### S LAENN MELOC #### [facility] [address] [place] [address] Dr. Manda York METANEPHRINES PLASMA FREEon 11-27-2021 Metanephrine, Pl 22.1 pg/mL Normal 0.0-88.0 [facility] Comment on above: Performed By: #### Lucinda MELO [facility] #### [facility] [address] [place] [address] Dr. Manda York Normetanephrine, Pl 50.7 pg/mL Normal 0.0-218.[address] [facility] Comment on above: Performed By: #### Lucinda MELO [facility] #### [facility] [address] [place] [address] Dr. Manda York CMV PLASMA PCRon 11-19-2021 CMV Quant DNA PCR (Plasma) Negative Normal Negative [facility] Comment on above: Result Comment: No C MV DNA detected. The quantitative range of this assay is 200 to 1 million IU/mL. Performed By: #### LEANN PATRICK #### [facility] [address] [place] [address] Dr. Manda York log10 CMV Qn DNA Pl UPTCAL Normal [facility] Comment on above: Result Comment: Unab le to calculate result since non-numeric result obtained for component test. Performed By: #### Lucinda MELO [facility] #### [facility] [address] [place] [address] Dr. Manda York CMV AB IGMon 11-18-2021 Cytomegalovirus (CMV) Ab, IgM 43.2 AU/mL Critically high 0.0-29.9 [facility] Comment on above: Result Comment: Nega tive <30.0 Equivocal 30.0 - 34.9 Positive >34.9 A positive result is generally indicative of acute infection, reactivation or persistent IgM production. Performed By: #### Lucinda MELO [facility] #### [facility] [address] [place] [address] Dr. Manda York CMV AB, IGGon 11-18-2021 Cytomegalovirus (CMV) Ab, IgG >10.00 Critically high 0.00-0.59 [facility] Comment on above: Result Comment: Nega tive <0.60 Equivocal 0.60 - 0.69 Positive >0.69 Performed By: #### C MVIGG #### [facility] [address] [address] [address] Manda York CBC AUTO DIFFon 11-17-2021 BASO # 0.1 103/ul Normal 0.0-0.1 [facility] Comment on above: Performed By: #### C BC #### [facility] [address] [address] [address] Manda York Basophils/100 WBC (Bld) 0.6 % Normal 0.2-2.0 [facility] Comment on above: Performed By: #### C BC #### [facility] [address] [place] [address] Dr. Manda York EO # 0.2 103/ul Normal 0.0-0.7 [facility] Comment on above: Performed By: #### C BC #### [facility] [address] [place] [address] Dr. Manda York Eosinophils/100 WBC (Bld) 2.3 % Normal 0.9-7.0 [facility] Comment on above: Performed By: #### C BC #### [facility] [address] [place] [address] Dr. Manda York Erythrocyte distribution width (RBC) [Ratio] 14.2 % Normal 11.0-15.0 [facility] Comment on above: Performed By: #### C BC #### [facility] [address] [place] [address] Dr. Manda York Hematocrit (Bld) [Volume fraction] 40.2 % Normal 36.0-48.0 [facility] Comment on above: Performed By: #### C BC #### [facility] [address] [place] [address] Dr. Manda York Hemoglobin (Bld) [Mass/Vol] 12.8 g/dL Normal 12.0-16.0 [facility] Comment on above: Performed By: #### C BC #### [facility] [address] [place] [address] Dr. Manda York IG # 0.02 10e3/ul Normal 0.00-0.03 [facility] Comment on above: Performed By: #### C BC #### [facility] [address] [place] [address] Dr. Manda York IG % 0.2 % Normal 0.0-0.5 [facility] Comment on above: Performed By: #### C BC #### [facility] [address] [place] [address] Dr. Manda York LYMPH # 2.5 103/ul Normal 1.2-3.8 [facility] Comment on above: Performed By: #### C BC #### [facility] [address] [place] [address] Dr. Manda York Lymphocytes/100 WBC (Bld) 24.9 % Normal 20.5-60.0 [facility] Comment on above: Performed By: #### C BC #### [facility] [address] [place] [address] Dr. Manda York MANUAL DIFF REQ NO Normal [facility] Comment on above: Performed By: #### C BC #### [facility] [address] [place] [address] Dr. Manda York MCH (RBC) [Entitic mass] 27.9 pg Normal 26.7-34.0 [facility] Comment on above: Performed By: #### C BC #### [facility] [address] [place] [address] Dr. Manda York MCHC (RBC) [Mass/Vol] 31.8 g/dL Normal 29.9-35.2 [facility] Comment on above: Performed By: #### C BC #### [facility] [address] [place] [address] Dr. Manda York MCV (RBC) [Entitic vol] 87.6 fL Normal 81.0-99.0 [facility] Comment on above: Performed By: #### C BC #### [facility] [address] [place] [address] Dr. Manda York MONO # 0.6 103/ul Normal 0.3-0.8 [facility] Comment on above: Performed By: #### C BC #### [facility] [address] [place] [address] Dr. Manda York Monocytes/100 WBC (Bld) 6.3 % Normal 1.7-12.0 [facility] Comment on above: Performed By: #### C BC #### [facility] [address] [place] [address] Dr. Manda York NEUT # 6.5 103/ul Normal 1.4-6.5 [facility] Comment on above: Performed By: #### C BC #### [facility] [address] [place] [address] Dr. Manda York Neutrophils/100 WBC (Bld) 65.7 % Normal 43.0-75.0 [facility] Comment on above: Performed By: #### C BC #### [facility] [address] [place] [address] Dr. Manda York Platelet mean volume (Bld) [Entitic vol] 10.1 fL Normal 9.5-13.5 [facility] Comment on above: Performed By: #### C BC #### [facility] [address] [place] [address] Dr. Manda York PLT 304 103/ul Normal 150-450 [facility] Comment on above: Performed By: #### C BC #### [facility] [address] [place] [address] Dr. Manda York RBC 4.59 106/ul Normal 4.20-5.40 [facility] Comment on above: Performed By: #### C BC #### [facility] [address] [place] [address] Dr. Manda York WBC 9.9 103/ul Normal 4.0-11.0 [facility] Comment on above: Performed By: #### C BC #### [facility] [address] [place] [address] Dr. Manda York PROF 14(COMP METB)on 022 Albumin [Mass/Vol] 3.7 g/dL Normal 3.4-5.0 [facility] Comment on above: Performed By: #### C BC #### [facility] [address] [place] [address] Dr. Manda York Albumin/Globulin [Mass ratio] 1.0 {ratio} Normal [facility] Comment on above: Performed By: #### C BC #### [facility] [address] [place] [address] Dr. Manda York ALP [Catalytic activity/Vol] 65 U/L Normal 46-116 [facility] Comment on above: Performed By: #### C BC #### [facility] [address] [place] [address] Dr. Manda York ALT [Catalytic activity/Vol] 35 U/L Normal 14-59 [facility] Comment on above: Performed By: #### C BC #### [facility] [address] [place] [address] Dr. Manda York Anion gap [Moles/Vol] 13.0 mmol/L Normal [facility] Comment on above: Performed By: #### C BC #### [facility] [address] [place] [address] Dr. Manda York AST [Catalytic activity/Vol] 12 U/L Critically low 15-37 [facility] Comment on above: Performed By: #### C BC #### [facility] [address] [place] [address] Dr. Manda York Bilirubin [Mass/Vol] 0.2 mg/dL Normal 0.2-1.0 [facility] Comment on above: Performed By: #### C BC #### [facility] [address] [place] [address] Dr. Manda York Calcium [Mass/Vol] 8.7 mg/dL Normal 8.5-10.1 [facility] Comment on above: Performed By: #### C BC #### [facility] [address] [place] [address] Dr. Manda York Chloride [Moles/Vol] 104 mmol/L Normal 98-107 [facility] Comment on above: Performed By: #### C BC #### [facility] [address] [place] [address] Dr. Manda York CO2 [Moles/Vol] 24.9 mmol/L Normal 21.0-32.0 [facility] Comment on above: Performed By: #### C BC #### [facility] [address] [address] [address] Manda York Creatinine [Mass/Vol] 0.77 mg/dL Normal 0.55-1.02 [facility] Comment on above: Performed By: #### C BC #### [facility] [address] [address] [address] Manda York EGFR-AF MARSHALLESE >=60 Normal >=60 [facility] Comment on above: Performed By: #### C BC #### [facility] [address] [place] [address] Dr. Manda York EGFR-NON AF MARSHALLESE >=60 Normal >=60 [facility] Comment on above: Performed By: #### C BC #### [facility] [address] [place] [address] Dr. Manda York Globulin (S) [Mass/Vol] 3.8 g/dL Normal [facility] Comment on above: Performed By: #### C BC #### [facility] [address] [place] [address] Dr. Manda York Glucose [Mass/Vol] 110 mg/dL Critically high 74-106 [facility] Comment on above: Performed By: #### C BC #### [facility] [address] [place] [address] Dr. Manda York Potassium [Moles/Vol] 3.9 mmol/L Normal 3.5-5.1 [facility] Comment on above: Performed By: #### C BC #### [facility] [address] [place] [address] Dr. Manda York Protein [Mass/Vol] 7.5 g/dL Normal 6.4-8.2 [facility] Comment on above: Performed By: #### C BC #### [facility] [address] [place] [address] Dr. Manda York Sodium [Moles/Vol] 138 mmol/L Normal 136-145 [facility] Comment on above: Performed By: #### C BC #### [facility] [address] [place] [address] Dr. Manda York Urea nitrogen [Mass/Vol] 17.0 mg/dL Normal 7.0-18.0 [facility] Comment on above: Performed By: #### C BC #### [facility] [address] [place] [address] Dr. Manda York Urea nitrogen/Creatinine [Mass ratio] 22.1 mg/mg Normal [facility] Comment on above: Performed By: #### C BC #### [facility] [address] [place] [address] Dr. Manda York SED RATE [facility] 2021 SED RATE 45 mm/hr Critically high <=20 [facility] Comment on above: Performed By: #### F T4 #### [facility] [address] [place] [address] Dr. Manda York CHRISTIAN EIA W/REFLEX 5 BIOMARKER Son 10-06-2021 CHRISTIAN Direct Positive Abnormal Negative [facility] Comment on above: Performed By: #### C BC #### [facility] [address] [place] [address] Dr. Manda York Anti-DNA (DS) Ab Qn 10 IU/mL Critically high 0-9 [facility] Comment on above: Result Comment: Nega tive <5 Equivocal 5 - 9 Positive >9 Performed By: #### C BC #### [facility] [address] [place] [address] Dr. Manda York TECHNICAL SOLUTIONS DIRECTOR Antibodies <0.2 Normal 0.0-0.9 [facility] Comment on above: Performed By: #### C BC #### [facility] [address] [place] [address] Dr. Manda York SEE BELOW: Comment Normal [facility] Comment on above: Result Comment: Auto [...] (anti-Schneider) SLE 15 - 30% --------- TECHNICAL SOLUTIONS DIRECTOR Mixed Connective Tissue Disease 95% (U1 nRNP, SLE 30 - 50% anti-ribonucleoprotein) Polymyositis and/or Dermatomyositis 20% --------- Scl-70 (antiDNA Scleroderma (diffuse) 20 - 35% topoisomerase) Crest 13% --------- Felicita-1 Polymyositis and/or Dermatomyositis 20 - 40% --------- Centromere B Scleroderma - Crest variant 80% Performed By: #### C BC #### [facility] [address] [place] [address] Dr. Manda York Sjogryaniv's Anti-SS-A <0.2 Normal 0.0-0.9 [facility] Comment on above: Performed By: #### C BC #### [facility] [address] [place] [address] Dr. Manda York Sjogryaniv's Anti-SS-B <0.2 Normal 0.0-0.9 [facility] Comment on above: Performed By: #### C BC #### [facility] [address] [place] [address] Dr. Manda York Schneider Antibodies <0.2 Normal 0.0-0.9 [facility] Comment on above: Performed By: #### C BC #### [facility] [address] [place] [address] Dr. Manda York CMV PLASMA PCRon 10-06-2021 CMV Quant DNA PCR (Plasma) Negative Normal Negative [facility] Comment on above: Result Comment: No C MV DNA detected. The quantitative range of this assay is 200 to 1 million IU/mL. Performed By: #### C MVPL #### [facility] [address] [place] [address] Dr. Manda York log10 CMV Qn DNA Pl UPTCAL Normal [facility] Comment on above: Result Comment: Unab le to calculate result since non-numeric result obtained for component test. Performed By: #### C MVPL #### [facility] [address] [place] [address] Dr. Manda York CMV AB IGMon 2021 Cytomegalovirus (CMV) Ab, IgM 35.5 AU/mL Critically high 0.0-29.9 [facility] Comment on above: Result Comment: Nega tive <30.0 Equivocal 30.0 - 34.9 Positive >34.9 A positive result is generally indicative of acute infection, reactivation or persistent IgM production. Performed By: #### S LUIGI MELO #### [facility] [address] [place] [address] Dr. Manda York CMV AB, IGGon 2021 Cytomegalovirus (CMV) Ab, IgG 6.30 U/mL Critically high 0.00-0.59 [facility] Comment on above: Result Comment: Nega tive <0.60 Equivocal 0.60 - 0.69 Positive >0.69 Performed By: #### S LUIGI MELO #### [facility] [address] [place] [address] Dr. Manda York CBC AUTO DIFFon 10-03-2021 BASO # 0.1 103/ul Normal 0.0-0.1 [facility] Comment on above: Performed By: #### C BC #### [facility] [address] [place] [address] Dr. Manda York Basophils/100 WBC (Bld) 0.7 % Normal 0.2-2.0 [facility] Comment on above: Performed By: #### C BC #### [facility] [address] [place] [address] Dr. Manda York EO # 0.2 103/ul Normal 0.0-0.7 [facility] Comment on above: Performed By: #### C BC #### [facility] [address] [place] [address] Dr. Manda York Eosinophils/100 WBC (Bld) 2.0 % Normal 0.9-7.0 [facility] Comment on above: Performed By: #### C BC #### [facility] [address] [place] [address] Dr. Manda York Erythrocyte distribution width (RBC) [Ratio] 14.4 % Normal 11.0-15.0 [facility] Comment on above: Performed By: #### C BC #### [facility] [address] [place] [address] Dr. Manda York Hematocrit (Bld) [Volume fraction] 37.2 % Normal 36.0-48.0 [facility] Comment on above: Performed By: #### C BC #### [facility] [address] [place] [address] Dr. Manda York Hemoglobin (Bld) [Mass/Vol] 12.3 g/dL Normal 12.0-16.0 [facility] Comment on above: Performed By: #### C BC #### [facility] [address] [place] [address] Dr. Manda York IG # 0.02 10e3/ul Normal 0.00-0.03 [facility] Comment on above: Performed By: #### C BC #### [facility] [address] [place] [address] Dr. Manda York IG % 0.2 % Normal 0.0-0.5 [facility] Comment on above: Performed By: #### C BC #### [facility] [address] [place] [address] Dr. Manda York LYMPH # 2.1 103/ul Normal 1.2-3.8 [facility] Comment on above: Performed By: #### C BC #### [facility] [address] [place] [address] Dr. Manda York Lymphocytes/100 WBC (Bld) 26.4 % Normal 20.5-60.0 [facility] Comment on above: Performed By: #### C BC #### [facility] [address] [place] [address] Dr. Manda York MANUAL DIFF REQ NO Normal [facility] Comment on above: Performed By: #### C BC #### [facility] [address] [place] [address] Dr. Manda York MCH (RBC) [Entitic mass] 29.2 pg Normal 26.7-34.0 [facility] Comment on above: Performed By: #### C BC #### [facility] [address] [place] [address] Dr. Manda York MCHC (RBC) [Mass/Vol] 33.1 g/dL Normal 29.9-35.2 [facility] Comment on above: Performed By: #### C BC #### [facility] [address] [place] [address] Dr. Manda York MCV (RBC) [Entitic vol] 88.4 fL Normal 81.0-99.0 [facility] Comment on above: Performed By: #### C BC #### [facility] [address] [place] [address] Dr. Manda York MONO # 0.5 103/ul Normal 0.3-0.8 [facility] Comment on above: Performed By: #### C BC #### [facility] [address] [place] [address] Dr. Manda York Monocytes/100 WBC (Bld) 6.7 % Normal 1.7-12.0 [facility] Comment on above: Performed By: #### C BC #### [facility] [address] [place] [address] Dr. Madna York NEUT # 5.2 103/ul Normal 1.4-6.5 [facility] Comment on above: Performed By: #### C BC #### [facility] [address] [place] [address] Dr. Manda York Neutrophils/100 WBC (Bld) 64.0 % Normal 43.0-75.0 [facility] Comment on above: Performed By: #### C BC #### [facility] [address] [place] [address] Dr. Manda York Platelet mean volume (Bld) [Entitic vol] 10.5 fL Normal 9.5-13.5 [facility] Comment on above: Performed By: #### C BC #### [facility] [address] [place] [address] Dr. Manda York PLT 265 103/ul Normal 150-450 [facility] Comment on above: Performed By: #### C BC #### [facility] [address] [place] [address] Dr. Manda York RBC 4.21 106/ul Normal 4.20-5.40 [facility] Comment on above: Performed By: #### C BC #### [facility] [address] [place] [address] Dr. Manda York WBC 8.1 103/ul Normal 4.0-11.0 [facility] Comment on above: Performed By: #### C BC #### [facility] [address] [place] [address] Dr. Manda York CRPon 10-03-2021 CRP [Mass/Vol] mg/L Normal <=1.0 [facility] Comment on above: Performed By: #### F T4 #### [facility] [address] [place] [address] Dr. Manda York SED RATE [facility] 2021 SED RATE 34 mm/hr Critically high <=20 [facility] Comment on above: Performed By: #### C BC #### [facility] [address] [place] [address] Dr. Manda York CHLORIDE (POC)Ordered By: Jae Holley on 10-07-2020 Chloride [Moles/Vol] 106 mmol/L 98 - 10 7 mmol/L [employer] Work Phone: Catheterization and angiogra phy procedure details panelOrdered By: Jonas Holley on 10-07-2020 Cardiac Diagnostic Report Demographics Patient TERA Torres Date of Study 10/07/2020 Name Date of 1980 Gender Female Age 40 year(s) Race Room [id number]^GINO Height: 67 inch, 170.18 cm Number Corporate [id number] Weight: 234 pounds, 106.1 kg ID # Patient [id number] BSA: 2.16 m^2 BMI: 36.65 kg/m^2 Acct # MR # [id number] Performing Jonas Holley Physician Referring # Physician [...] Right coronary angiography. Contrast Material: - Isovue 80939 ml Fluoroscopy Time: Diagnostic: 2:12 minutes. Total: [...] assessed as CCS II according to the [place] clinical classification. Hemodynamics Condition: Baseline Room Air [...] + + !Aortic (more content not included)... [employer] Phone: Jr, pn Incoming Cardio Results From [facility]/ - 10/07/2020 10:37 AM EDT Cardiac Diagnostic Report Demographics Patient TERA Torres Date of Study 10/07/2020 Name Date of 1980 Gender Female Age 40 year(s) Race Room [id number]^GINO Height: 67 inch, 170.18 cm Number Corporate [id number] Weight: 234 pounds, 106.1 kg ID # Patient [id number] BSA: 2.16 m^2 BMI: 36.65 kg/m^2 Acct # MR # [id number] Performing Jonas Holley Physician Referring # Physician [...] Right coronary angiography. Contrast Material: - Isovue 28701 ml Fluoroscopy Time: Diagnostic: 2:12 minutes. Total: [...] assessed as CCS II according to the [place] clinical classification. Hemodynamics Condition: Baseline Room Air [...] +--------- + + Shunts Oxygen Values O2 [id number] Acnktltfgol763.52 [employer] Phone: [employer] Phone: [employer] Phone: Creatinine W/GFR Point of Ca reOrdered By: Jonas Holley on 10-07-2020 Creatinine [Mass/Vol] 0.64 mg/dL 0.51 - 1.19 mg/dL [employer]: GFR Non- >60 >60 mL/min [employer]: GFR/1.73 sq M.predicted MDRD (S/P/Bld) [Vol rate/Area] mL/min/{1.73_m2} >60 mL/min [employer]: GFR/1.73 sq M.predicted MDRD (S/P/Bld) [Vol rate/Area] [employer] Phone: Comment on above: Average GFR for 40-4 9 years old: 99 mL/min/1.73sq m Chronic Kidney Disease: <60 mL/min/1.73sq m Kidney failure: <15 mL/min/1.73sq m eGFR calculated using average adult body mass. Additional eGFR calculator available at: http://www.[employer]/multiple_crcl_2012.htm Hemoglobin and hematocrit, b loodOrdered By: Jonas Holley on 10-07-2020 Hematocrit (Bld) [Volume fraction] 41 % 36 - 46 % [employer]: Hemoglobin (Bld) [Mass/Vol] 14.0 g/dL 12.0 - 16.0 g/dL [employer]: No Panel InformationOrdered By: Jonas Holley on 10-07-2020 [employer]: POCT GlucoseOrdered By: Anu Holley on 10-07-2020 Glucose [Mass/Vol] 98 mg/dL 74 - 100 mg/dL [employer]: POCT urine pregnancyOrdered By: Jonas Holley on 10-07-2020 Beta HCG ( test) Ql (U) Negative NEGATIVE [employer] Phone: Comment on above: Specimens with hCG l evels near the threshold of the test (25 mIU/mL) may give a negative or indeterminate result. In such cases, another test should be performed with a new specimen in 48-72 hours. If early is suspected clinically in this setting, correlation with quantitative serum b-hCG level is suggested. [employer] Phone: POTASSIUM (POC)Ordered By: Al Holley on 10-07-2020 Potassium [Moles/Vol] 3.8 mmol/L 3.5 - 4.5 mmol/L [employer]: Platelet Counton 10-07-2020 Platelets (Bld) [#/Vol] 299 10*3/uL Normal 138-453 [facility] Comment on above: Performed By: #### P LT #### [facility] [address] [place] [address] Imaging Center Manager: Rick Serrano MD Platelet countOrdered By: Jae Holley on 10-07-2020 Platelets (Bld) [#/Vol] 299 10*3/uL [employer] Phone: [employer] Phone: SODIUM (POC)Ordered By: Anu Holley on 10-07-2020 Sodium [Moles/Vol] 141 mmol/L 138 - 146 mmol/L [employer] Phone: Coding Summary.on 01-12-2019 Coding Summary. CODING DATE: 01/12/2019 FINAL [facility] STATUS: Home (Routine DC) PAYOR: [...] mass index (BMI) 34.0-34.9, adult Z79.899 Other long goods drier (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 However, the narrative phrase printed from the coding software may appear abbreviated, or result in slightly different terminology. Coded By: Luz Judd Date Saved: 01/12/2019 10:25 am Normal [facility] Coding Summary. CODING DATE: 01/12/2019 FINAL [facility] STATUS: Home (Routine DC) PAYOR: [...] mass index (BMI) 34.0-34.9, adult Z79.899 Other skilled nursing (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 However, the narrative phrase printed from the coding software may appear abbreviated, or result in slightly different terminology. Revised Coded By: Luz Judd Revised Date Saved: 01/12/2019 10:25 am Normal [facility] XR Chest 2 Viewson 9 [...] M.D. Transcribed by: BILL Technologist: ZOILA Normal [facility] Auto Diffon 01-11-2019 Basophils/100 WBC (Bld) 0.8 % Normal 0.0-2.0 [facility] Comment on above: Order Comment: Order Added by Discern Expert. Performed By: #### 1 [id number], 7450695, 5740157, 5754073, 48810546, 0397179, 7621545, 0606007, 1175516, 47099656, 0125338 #### [facility] [address] [place] [address] Basophils/Leukocytes Auto (Bld) [Pure # fraction] 0.1 E9/L Normal 0.0-0.2 [facility] Comment on above: Order Comment: Order Added by Tosin Expert. Performed By: #### 1 3870028, 4105519, 7713466, 5953388, 03097529, 1820823, 2525411, 2261400, 4232912, 43140137, 1054000 #### [facility] [address] [place] [address]11 Eosinophils/100 WBC (Bld) 1.9 % Normal 0.0-8.0 [facility] Comment on above: Order Comment: Order Added by Discern Expert. Performed By: #### 1 3763912, 7939135, 1313551, 6600360, 58801540, 1450898, 5341567, 3419021, 3106158, 54156113, 4747473 #### [facility] [address] [place] [address] Eosinophils/Leukocytes Auto (Bld) [Pure # fraction] 0.1 E9/L Normal 0.0-0.5 [facility] Comment on above: Order Comment: Order Added by Tosin Expert. Performed By: #### 1 0867494, 7401055, 8072282, 3836125, 23411842, 1858811, 8071673, 2162476, 1729830, 10970795, 5250658 #### [facility] [address] [place] [address] Lymphocytes/100 WBC (Bld) 28.0 % Normal 14.0-50.0 [facility] Comment on above: Order Comment: Order Added by Discern Expert. Performed By: #### 1 0954653, 2483154, 3470302, 5750148, 27399096, 3629205, 0630081, 0742373, 9267447, 60746266, 1601100 #### [facility] [address] [place] [address] Lymphocytes/Leukocytes Auto (Bld) [Pure # fraction] 2.2 E9/L Normal 1.0-4.0 [facility] Comment on above: Order Comment: Order Added by Tosin Expert. Performed By: #### 1 2429667, 3983201, 7078458, 7969151, 37779678, 0355898, 2050313, 6102382, 1900864, 24704846, 3187370 #### [facility] [address] [place] [address]45 Monocytes/100 WBC (Bld) 7.0 % Normal 4.0-14.0 [facility] Comment on above: Order Comment: Order Added by Discern Expert. Performed By: #### 1 2086270, 7645504, 5678878, 4722325, 19377593, 6656639, 3186743, 6326232, 0525547, 20248034, 3132104 #### [facility] [address] [place] [address] Monocytes/Leukocytes Auto (Bld) [Pure # fraction] 0.6 E9/L Normal 0.2-1.0 [facility] Comment on above: Order Comment: Order Added by Discern Expert. Performed By: #### 1 1015453, 0224122, 7205799, 6015144, 80874106, 5877621, 6377130, 8238229, 0536602, 39591905, 4326157 #### [facility] [address] [place] [address] 82768 Neutrophils/100 WBC (Bld) 62.3 % Normal 36.0-75.0 [facility] Comment on above: Order Comment: Order Added by Discern Expert. Performed By: #### 1 9751612, 7797042, 2947031, 9636666, 65958419, 8339080, 1727389, 6055779, 7293683, 61725990, 6011454 #### [facility] [address] [place] [address]2815 Neutrophils/Leukocytes Auto (Bld) [Pure # fraction] 4.9 E9/L Normal 2.0-7.5 [facility] Comment on above: Order Comment: Order Added by Discern Expert. Performed By: #### 1 4159733, 8440743, 2513226, 6756934, 25396062, 4227325, 8251982, 7291982, 1337186, 87253964, 4071252 #### [facility] [address] [place] [address] BMPon 01-11-2019 Creatinine [Mass/Vol] 0.7 mg/dL Normal 0.5-1.3 [facility] Comment on above: Performed By: #### 1 3061598, 9043571, 1494107, 4693393, 45854996, 5128791, 4403455, 0512002, 0789683, 08567024, 9243519 #### [facility] [address] [place] [address] Urea nitrogen [Mass/Vol] 11 mg/dL Normal 5-21 [facility] Comment on above: Performed By: #### 1 0728623, 5736661, 7860148, 6217206, 31701001, 2500099, 3853546, 4073736, 4030614, 99750388, 6457437 #### [facility] [address] [place] [address] Urea nitrogen/Creatinine [Mass ratio] 16 No Units Normal 10-20 [facility] Comment on above: Performed By: #### 1 8951609, 0580404, 2884438, 2960347, 98505119, 8683894, 2176116, 3576717, 5102458, 57150319, 4134900 #### [facility] [address] [place] [address] Anion gap [Moles/Vol] 14 mmol/L Normal 6-16 [facility] Comment on above: Performed By: #### 1 1774747, 8977591, 5041036, 2550137, 06540996, 0721746, 8666780, 7878216, 4913719, 90725762, 6965303 #### [facility] [address] [place] [address] Calcium [Mass/Vol] 8.9 mg/dL Normal 8.9-11.1 [facility] Comment on above: Performed By: #### 1 6137120, 0676272, 6071055, 2916256, 82588999, 8871332, 6873752, 1179530, 6995218, 20814227, 8329043 #### [facility] [address] [place] [address] Chloride [Moles/Vol] 107 mmol/L Normal 101-111 [facility] Comment on above: Performed By: #### 1 4483361, 0065882, 7285630, 2874235, 60751749, 9294948, 2767620, 7390479, 3946524, 16622434, 6120882 #### [facility] [address] [place] [address] CO2 [Moles/Vol] 22 mmol/L Normal 21-31 [facility] Comment on above: Performed By: #### 1 6286917, 5046116, 6798041, 3454035, 03689300, 5147782, 9282463, 3605230, 1366461, 19962168, 1338593 #### [facility] [address] [place] [address] Glucose [Mass/Vol] 122 mg/dL Normal 55-199 [facility] Comment on above: Result Comment: If t his glucose result represents a fasting glucose, interpretation should refer to the following reference range: 55-99 mg/dL Performed By: #### 1 9761161, 2334833, 8379081, 4523094, 34522987, 5708209, 6281099, 3448075, 9593972, 94015305, 7313755 #### [facility] [address] [place] [address] Potassium [Moles/Vol] 3.8 mmol/L Normal 3.5-5.3 [facility] Comment on above: Performed By: #### 1 1256468, 8156442, 9399740, 2041685, 20968219, 6182050, 1237764, 1007731, 1348607, 32397417, 5461369 #### [facility] [address] [place] [address] Sodium [Moles/Vol] 139 mmol/L Normal 135-145 [facility] Comment on above: Performed By: #### 1 1862006, 6297392, 5602931, 1266428, 82743497, 9001428, 5661318, 7409964, 4997270, 21201856, 5141695 #### [facility] [address] [place] [address] CBC w/ Auto Diffon Erythrocyte distribution width (RBC) [Ratio] 14.0 % Normal 10.9-14.2 [facility] Comment on above: Performed By: #### 1 1870257, 3500905, 6491300, 1782588, 00126564, 3794086, 0274786, 8224568, 5295617, 26169089, 3801014 #### [facility] [address] [place] [address] Hematocrit (Bld) [Volume fraction] 39.9 % Normal 34.0-46.0 [facility] Comment on above: Performed By: #### 1 5414759, 4388400, 5101220, 8758074, 14686222, 8905112, 4954816, 8331963, 7768761, 58988312, 3255794 #### [facility] [address] [place] [address] Hemoglobin (Bld) [Mass/Vol] 13.5 g/dL Normal 12.0-16.0 [facility] Comment on above: Performed By: #### 1 1560291, 6770601, 4697466, 0345684, 86579746, 1372766, 0204131, 9229634, 7662038, 26893615, 4070048 #### [facility] [address] [place] [address] MCH (RBC) [Entitic mass] 29.4 pg Normal 27.0-34.0 [facility] Comment on above: Performed By: #### 1 8140398, 1526721, 3575693, 9267564, 22510910, 2239476, 8701390, 9273033, 9480352, 05171647, 8920328 #### [facility] [address] [place] [address] MCHC (RBC) [Mass/Vol] 33.7 g/dL Normal 33.3-35.7 [facility] Comment on above: Performed By: #### 1 6397749, 3219179, 5407354, 8387253, 28605437, 9359055, 1704818, 8799159, 2295357, 39565825, 2698267 #### [facility] [address] [place] [address] MCV (RBC) [Entitic vol] 87.4 fL Normal 80.0-100.0 [facility] Comment on above: Performed By: #### 1 9752104, 6663635, 0614968, 0926111, 41064354, 9906201, 0580030, 8399453, 1842273, 24775347, 4407741 #### [facility] [address] [place] [address] Platelet mean volume (Bld) [Entitic vol] 8.5 fL Normal 6.4-10.8 [facility] Comment on above: Performed By: #### 1 9863771, 0400792, 6534980, 7180138, 26285252, 0494033, 1660243, 4716575, 1814779, 16490380, 5272510 #### [facility] [address] [place] [address] Platelets (Bld) [#/Vol] 244.0 E9/L Normal 150.0-500.0 [facility] Comment on above: Performed By: #### 1 8894659, 2534596, 6195557, 9886292, 13067016, 3564014, 6425741, 7192736, 8610560, 74960537, 0900647 #### [facility] [address] [place] [address] RBC (Bld) [#/Vol] 4.6 E12/L Normal 4.3-5.9 [facility] Comment on above: Performed By: #### 1 2943238, 1160927, 3139256, 2318057, 37184374, 8697449, 4716096, 3608803, 0498500, 39851662, 7326120 #### [facility] [address] [place] [address] WBC corrected for nucl RBC Auto (Bld) [#/Vol] 7.9 E9/L Normal 4.0-11.0 [facility] Comment on above: Performed By: #### 1 0958534, 6436570, 5788134, 2120647, 65262554, 5514484, 2986745, 2305742, 8750192, 78196033, 6838722 #### [facility] [address] [place] [address] D-Dimeron 01-11-2019 Fibrin D-dimer FEU (PPP) [Mass/Vol] 265 ng/mL Normal 215-500 [facility] Comment on above: Result [...] infections Liver cirrhosis Performed By: #### 1 1908895, 1527642, 8738530, 3982684, 44207319, 9959685, 0485066, 7683546, 3779692, 95369265, 8431427 #### [facility] [address] [place] [address] ED Clinical Summaryon 2018 ED Clinical Summary [address] [address] ED Clinical Summary Person Information Name: ARIADNA HALEY [place] Age: 38 Years : 1980 12:00 AM Sex: Female Language: Guyanese PCP: Charles Nicole DO Marital Status: Single Phone: [phone] Visit Id: Visit Reason: Chest pain; CHEST [...] 01/11/2019 6:42 PM 01/11/2019 6:42 PM ADDRESS: [address] [place] [id number] PHYS DOC NOTES: MEDICAL INFORMATION: Prescriptions Given: PATIENT EDUCATION INFORMATION: Instructions: Smoking Cessation; Chest Pain (Nonspecific) Follow up: With: Address: When: [place] [phone] Business (1) Within 2 to 3 days Comments: Return to ED if symptoms worsen DIAGNOSIS: 1:Chest pain Normal [facility] ED Note-Physicianon 01-12-20 19 [...] medications Follow-up With When Contact Information Charles Nicole Within 2 to 3 days [address] [place] [address]- [place] (1) Additional Instructions: Return to ED if [...] Lymph Auto: 28 % (01/11/19 16:46:00 EDT) Cole Auto: 7 % (01/11/19 16:46:00 EDT) Eos Auto: 1.9 % (01/11/19 16:46:00 EDT) Basophil Auto: 0.8 % (01/11/19 16:46:00 EDT) Neutro Absolute: 4.9 E9/L (01/11/19 16:46:00 EDT) Lymph Absolute: 2.2 E9/L (01/11/19 16:46:00 EDT) Cole Absolute: 0.6 E9/L (01/11/19 16:46:00 EDT) Eos [...] Results EC01/11/19: SINUS RHYTHM RATE 84, NORMAL UT AND QRS, NO ST ELEVATION OR DEPRSSION, NORMAL AXIS, NORMAL QTC NORMAL ECG Signed By: Orin Browne DO 01/11/2019 15:54:18 Normal [facility] Comment on above: Result [...] and skin patches. Some may be available tsdm-xqt-xpiccyi and others require a prescription. ? Antidepressant [...] Document Reviewed: 08/18/2012 ExitCare? Patient Information ?2014 [facility]. This information is not intended [...] Document Reviewed: 12/13/2008 ExitCare? Patient Information ?2015 [employer]. This information is not intended to replace advice given to you by your health care provider. Make sure you discuss any questions you have with your health care provider. Normal [facility] ED Patient Summaryon 019 ED Patient Summary [place] [id number] Patient Discharge Instructions Person Information Name: ARIADNA HALEY Age: 38 Years Arrival Date: 01/11/2019 3:44 PM Discharge Diagnosis: 1:Chest pain Primary Care Physician: Charles Nicole DO Provider Information Primary Provider: Orin Browne DO Advanced Band Reamer Machine Operator:None The exam and treatment you received in the Emergency Department were for an urgent problem and are not intended as complete care. It is important that you follow up with a doctor, nurse practitioner, or physician?s assistant produce manager for ongoing care. If your symptoms [...] Follow-up Instructions: With: Address: When: Charles Nicole [address] [place], [place] [phone] Business (1) Within 2 to 3 days [...] opioids can be used to help relieve reypbfjt-js-kzqfpp pain and are often prescribed following a [...] be struggling with addiction, tell your health childcare director and ask for guidance or call [facility] National Helpline at 9-970-342-SJAO. d Source: US Department of Health and Human Services/Center for Disease Control & Prevention [facility] Medications Given: Medication Dose Route No medications found. Medication Information: Medications to Continue with No Changes Other Medications metformin (metformin 500 mg ER Tab) 250 Milligram By Mouth 2 times a day. Comment: Pharmacy Information: Thank you for choosing [facility] Patient Education Materials: Smoking Cessation Quitting [...] and skin patches. Some may be available roae-yzh-yuitrli and others require a prescription. ? Antidepressant [...] Document Reviewed: 08/18/2012 ExitCare? Patient Information ?2015 [employer]. This information is not intended to replace [...] Document Reviewed: 12/13/2008 ExitCare? Patient Information ?2015 [employer]. This information is not intended to replace advice given to you by your health care provider. Make sure you discuss any questions you have with your health care provider. TERA Dorantes NICOLE B , have received the following patient education materials/instruction s and have verbalized understanding: Patient Education Materials: Smoking Cessation; Chest Pain (Nonspecific) Follow-up Instructions: With: Address: When: [place] [address] Business (1) Within 2 to 3 days Comments: Return to ED if symptoms worsen Prescriptions: Patient Signature Date Clinician/Nurse Signature Date 01/11/19 18:42:28 Normal [facility] Progress Note-Nurseon 2018 Progress Note-Nurse Pt explained discharge instructions and voiced understanding. Pt sts she will follow up with her PCP and denies any furthe questions at this time. Normal [facility] Troponin 0 Hr.on 01-11-2019 Troponin I.cardiac [Mass/Vol] ng/mL Normal <=0.03 [facility] Comment on above: Result Comment: New Troponin Assay 10/05/13 [place] Cutoff value > or = 0.03 ng/mL in conjunction with clinical conditions of myocardial infarction. (www.escardio.org/guidelines) Performed By: #### 1 [id number], 2816177, 5763539, 0559611, 01141387, 6299831, 6446033, 0844506, 8246494, 44334855, 4811447 #### [facility] [address] [place] [address] eGFRon 01-11-2019 GFR/1.73 sq M predicted among blacks MDRD (S/P/Bld) [Vol rate/Area] mL/min/{1.73_m2} Normal >=59 [facility] Comment on above: Order Comment: Order added by Discern Expert. Result Comment: eGFR is race adjusted. AA=. Performed By: #### 1 3297086, 5466339, 9992074, 4717449, 09892098, 2608897, 1810385, 3924409, 5538751, 43827383, 2251514 #### [facility] [address] [place] [address] GFR/1.73 sq M predicted among non-blacks MDRD (S/P/Bld) [Vol rate/Area] mL/min/{1.73_m2} Normal >=59 [facility] Comment on above: Order Comment: Order added by Discern Expert. 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 Kidney failure is indicated at less than 15 mL/min/1.73m2. Performed By: #### 1 3895471, 1831208, 3150180, 0269436, 57782717, 6265480, 6255390, 4277403, 6682953, 17953344, 5169869 #### [facility] [address] [place] [address] SPINE, LUMBOSACRAL CMPLT(TOOTIE DING)on 12-05-2018 SPINE, LUMBOSACRAL CMPLT(BENDING) Patient Name: ARIADNA HALEY STUDY: SPINE, LUMBOSACRAL; CMPLT(BENDING); 12/05/2018 1:47 pm INDICATION: LUMBAR XR. COMPARISON: None. ACCESSION NUMBER(S): [id number] ORDERING CLINICIAN: KADE RICHARDSON FINDINGS: No lumbar spine fracture. Scattered small endplate osteophytes. Vertebral body and disc space heights are are maintained. 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 No spondylolisthesis. No instability on flexion or extension. IMPRESSION: Degenerative changes of the lumbar spine without instability. Electronically signed by: EARNESTINE MANUEL MD [facility] Coding Summary.on 09-15-2018 Coding Summary. CODING DATE: 09/15/2018 FINAL [facility] STATUS: Home (Routine DC) PAYOR: [...] Judd Date Saved: 09/15/2018 07:15 am Normal [facility] Auto Diffon 09-14-2018 Basophils/100 WBC (Bld) 0.6 % Normal 0.0-2.0 [facility] Comment on above: Order Comment: Order Added by Discern Expert. Performed By: #### 1 6456522, 0332623, 1537588, 7594030, 86645157, 6277251, 8713780, 9379916, 1541533, 85976656, 9846531 #### [facility] [address] [place] [address] Basophils/Leukocytes Auto (Bld) [Pure # fraction] 0.1 E9/L Normal 0.0-0.2 [facility] Comment on above: Order Comment: Order Added by Discern Expert. Performed By: #### 1 2254274, 1929028, 5822370, 0805296, 31720709, 2929271, 2588613, 5482496, 1311557, 24352481, 9688309 #### [facility] [address] [place] [address] Eosinophils/100 WBC (Bld) 2.2 % Normal 0.0-8.0 [facility] Comment on above: Order Comment: Order Added by Discern Expert. Performed By: #### 1 4016194, 3128476, 1614573, 2243241, 08532823, 7099776, 9982488, 4631938, 0262507, 86427070, 5936813 #### [facility] [address] [place] [address] Eosinophils/Leukocytes Auto (Bld) [Pure # fraction] 0.2 E9/L Normal 0.0-0.5 [facility] Comment on above: Order Comment: Order Added by Discern Expert. Performed By: #### 1 1459954, 4366374, 2475197, 1126382, 89972873, 8034004, 0884097, 3843168, 6269979, 41741935, 2264368 #### [facility] [address] [place] [address] Lymphocytes/100 WBC (Bld) 30.6 % Normal 14.0-50.0 [facility] Comment on above: Order Comment: Order Added by Discern Expert. Performed By: #### 1 9205799, 2109686, 1812303, 5746341, 75511527, 8293935, 5520547, 6568384, 5216885, 89794448, 3323242 #### [facility] [address] [place] [address] Lymphocytes/Leukocytes Auto (Bld) [Pure # fraction] 3.0 E9/L Normal 1.0-4.0 [facility] Comment on above: Order Comment: Order Added by Discern Expert. Performed By: #### 1 3520390, 7269438, 9097451, 5944559, 91385388, 1021900, 0425205, 1325299, 2415550, 47782572, 1774336 #### [facility] [address] [place] [address] Monocytes/100 WBC (Bld) 7.2 % Normal 4.0-14.0 [facility] Comment on above: Order Comment: Order Added by Discern Expert. Performed By: #### 1 3902594, 6273124, 4355454, 1173809, 48558390, 3134979, 4184453, 2615169, 5369872, 77937157, 6226464 #### [facility] [address] [place] [address] Monocytes/Leukocytes Auto (Bld) [Pure # fraction] 0.7 E9/L Normal 0.2-1.0 [facility] Comment on above: Order Comment: Order Added by Discern Expert. Performed By: #### 1 4136507, 0774425, 1671312, 5166222, 01965805, 5169919, 0168432, 9279611, 7458472, 29719836, 6668356 #### [facility] [address] [place] [address] Neutrophils/100 WBC (Bld) 59.4 % Normal 36.0-75.0 [facility] Comment on above: Order Comment: Order Added by Discern Expert. Performed By: #### 1 9715612, 5620239, 2195632, 1901934, 21272194, 4431545, 3568218, 8627033, 7980549, 05767372, 0565089 #### [facility] [address] [place] [address] Neutrophils/Leukocytes Auto (Bld) [Pure # fraction] 5.9 E9/L Normal 2.0-7.5 [facility] Comment on above: Order Comment: Order Added by Discern Expert. Performed By: #### 1 4829938, 5949001, 5213226, 6735976, 59134522, 5481766, 5954453, 8943109, 5024439, 62139945, 9365694 #### [facility] [address] [place] [address] BMPon 09-14-2018 Creatinine [Mass/Vol] 0.6 mg/dL Normal 0.5-1.3 [facility] Comment on above: Performed By: #### 1 0610163, 0358695, 1217477, 1430860, 21798444, 7661485, 4561020, 4746197, 9444834, 35658123, 6934146 #### [facility] [address] [place] [address] Urea nitrogen [Mass/Vol] 15 mg/dL Normal 5-21 [facility] Comment on above: Performed By: #### 1 2656276, 0004712, 8759193, 1297472, 99952392, 6506803, 4718930, 7616007, 6397890, 38371639, 5394745 #### [facility] [address] [place] [address] Urea nitrogen/Creatinine [Mass ratio] 25 No Units High 10-20 [facility] Comment on above: Performed By: #### 1 1947679, 4362912, 2207470, 6496188, 09869284, 3519677, 4478110, 5615195, 2017821, 17575562, 5694516 #### [facility] [address] [place] [address] Anion gap [Moles/Vol] 13 mmol/L Normal 6-16 [facility] Comment on above: Performed By: #### 1 4235163, 2746841, 3193296, 0505489, 46874938, 6981604, 8822831, 7238108, 9107909, 06553673, 5074622 #### [facility] [address] [place] [address] Calcium [Mass/Vol] 9.5 mg/dL Normal 8.9-11.1 [facility] Comment on above: Performed By: #### 1 9327655, 6796216, 2364785, 9599762, 93232915, 9032138, 3365817, 7823260, 9109202, 92777722, 3987000 #### [facility] [address] [place] [address] Chloride [Moles/Vol] 103 mmol/L Normal 101-111 [facility] Comment on above: Performed By: #### 1 1187265, 1143514, 0131378, 9177311, 49650590, 2593918, 4457556, 1749885, 1375321, 83271929, 5803496 #### [facility] [address] [place] [address] CO2 [Moles/Vol] 24 mmol/L Normal 21-31 [facility] Comment on above: Performed By: #### 1 7768067, 6632740, 0680685, 4808073, 43026512, 6575619, 6227119, 4956136, 4871848, 43668315, 7475672 #### [facility] [address] [place] [address] Glucose [Mass/Vol] 102 mg/dL Normal 55-199 [facility] Comment on above: Result Comment: If t his glucose result represents a fasting glucose, interpretation should refer to the following reference range: 55-99 mg/dL Performed By: #### 1 1310874, 8196574, 4739798, 8894263, 38170672, 9740825, 1109209, 0211646, 2549845, 29503499, 0942055 #### [facility] [address] [place] [address] Potassium [Moles/Vol] 3.6 mmol/L Normal 3.5-5.3 [facility] Comment on above: Performed By: #### 1 6185679, 9787506, 6971221, 1820385, 93335651, 2542195, 1621566, 3978579, 8364841, 00307330, 4608618 #### [facility] [address] [place] [address] Sodium [Moles/Vol] 136 mmol/L Normal 135-145 [facility] Comment on above: Performed By: #### 1 1650294, 4666756, 4512796, 0709286, 82740932, 1352004, 8371305, 6038127, 6920183, 05775716, 6721826 #### [facility] [address] [place] [address] CBC w/ Auto Diffon 9 Erythrocyte distribution width (RBC) [Ratio] 14.2 % Normal 10.9-14.2 [facility] Comment on above: Performed By: #### 1 6329887, 5241530, 0900706, 6411638, 82160500, 7768477, 3436425, 2812892, 3643171, 50015962, 0651680 #### [facility] [address] [place] [address] Hematocrit (Bld) [Volume fraction] 39.4 % Normal 34.0-46.0 [facility] Comment on above: Performed By: #### 1 0736101, 9509506, 5875955, 0240958, 35274449, 9084888, 8735948, 9219948, 3587323, 97352691, 5537299 #### [facility] [address] [place] [address] Hemoglobin (Bld) [Mass/Vol] 13.3 g/dL Normal 12.0-16.0 [facility] Comment on above: Performed By: #### 1 1296858, 6308709, 5812949, 6470854, 85788614, 8957403, 0508488, 4390081, 6362119, 01330441, 5580597 #### [facility] [address] [place] [address] MCH (RBC) [Entitic mass] 29.2 pg Normal 27.0-34.0 [facility] Comment on above: Performed By: #### 1 3892208, 9877722, 1910975, 1248156, 00844123, 8725434, 8052165, 5572365, 5196323, 07285990, 4814138 #### [facility] [address] [place] [address] MCHC (RBC) [Mass/Vol] 33.8 g/dL Normal 33.3-35.7 [facility] Comment on above: Performed By: #### 1 7897815, 1318289, 7222470, 1933851, 59300850, 9676009, 9117713, 4717514, 6396319, 62913931, 9371040 #### [facility] [address] [place] [address] MCV (RBC) [Entitic vol] 86.6 fL Normal 80.0-100.0 [facility] Comment on above: Performed By: #### 1 8113530, 9603346, 7917133, 6256167, 91027476, 2436859, 3137614, 7790814, 2331435, 86515768, 1887190 #### [facility] [address] [place] [address] Platelet mean volume (Bld) [Entitic vol] 8.8 fL Normal 6.4-10.8 [facility] Comment on above: Performed By: #### 1 2195441, 0021552, 3582186, 5929135, 66747853, 3577859, 7650872, 6536996, 1296745, 89042416, 0394471 #### [facility] [address] [place] [address] Platelets (Bld) [#/Vol] 307.0 E9/L Normal 150.0-500.0 [facility] Comment on above: Performed By: #### 1 5911803, 2049943, 5528626, 5693310, 59504382, 7349106, 2993963, 2295079, 9964593, 24083448, 5604030 #### [facility] [address] [place] [address] RBC (Bld) [#/Vol] 4.6 E12/L Normal 4.3-5.9 [facility] Comment on above: Performed By: #### 1 8827211, 0036596, 8075984, 5324587, 79907820, 0973550, 8446061, 8761039, 8560972, 85532379, 9931158 #### [facility] [address] [place] [address] WBC corrected for nucl RBC Auto (Bld) [#/Vol] 9.9 E9/L Normal 4.0-11.0 [facility] Comment on above: Performed By: #### 1 2037680, 4828212, 8151277, 5748477, 54964142, 7453203, 5417695, 3708199, 9134972, 87037557, 2651761 #### [facility] [address] [place] [address] [facility] CK [Catalytic activity/Vol] 53 Int._Unit/L Normal 14-261 [facility] Comment on above: Performed By: #### 1 6627502, 1020131, 9697762, 9524331, 42745090, 8019304, 7015327, 0006735, 9643303, 71405196, 5767874 #### [facility] [address] [place] [address] ED Clinical Summaryon 2018 ED Clinical Summary [address] [address] ED Clinical Summary Person Information Name: ARIADNA HALEY [place] Age: 37 Years : 1980 12:00 AM Sex: Female Language: Guyanese PCP: Charles Nicole DO Marital Status: Single Phone: [phone] Visit Id: Visit Reason: Anxiety; Paraesthesia; NUMBNESS [...] 09/14/2018 12:17 AM 09/14/2018 12:17 AM ADDRESS: [address] [place] [address] [place] [id number] PHYS DOC NOTES: MEDICAL INFORMATION: Prescriptions Given: Prescription Display gabapentin (gabapentin 100 mg Cap) 100 mg = 1 cap(s), Oral, Daily, X 7 day(s), # 7 cap(s), Refills(s) 0, Pharmacy: [facility] gabapentin (gabapentin 100 mg Cap) 100 mg = 1 cap(s), Oral, Daily, X 7 day(s), # 7 cap(s), Refills(s) 0, Pharmacy: [facility]/pharmacy #6177 magnesium oxide (magnesium oxide 400 mg Tab) 400 mg = 1 tab(s), Oral, Daily, X 7 day(s), # 7 tab(s), Refills(s) 0, Pharmacy: [facility] magnesium oxide (magnesium oxide 400 mg Tab) 400 mg = 1 tab(s), Oral, Daily, X 7 day(s), # 7 tab(s), Refills(s) 0, Pharmacy: [facility]/pharmacy #6177 Home Meds Display metformin (metformin 500 mg ER Tab) 250 mg, Oral, BID, Refills(s) 0 PATIENT EDUCATION INFORMATION: Instructions: Paresthesia, Iiue-cl-Ldoz; Restless Legs Syndrome Follow up: With: Address: When: Sayda Kelley [address] [address] Business (1) Within 1 to 2 days Comments: neurologist you may also follow up with him With: Address: When: [place] [address] [place] (1) Within 1 to 2 days Comments: Return to ED if symptoms worsen DIAGNOSIS: 1:Restless leg syndrome Normal [facility] ED Note-Nursingon 09-14-2018 ED Note-Nursing Pt up to RR, gait steady. Normal [facility] ED Note-Nursing Aware of need for urine specimen, denies urge at present, states will notify when able to produce sample, will monitor. Normal [facility] ED Note-Physicianon 09-15-19 19 [...] day(s), # 7 cap(s), Refills(s) 0, Pharmacy: [facility]/pharmacy #6177 magnesium oxide, 400 mg = 1 tab(s), Oral, Daily, X 7 day(s), # 7 tab(s), Refills(s) 0, Pharmacy: [facility]/pharmacy #6177 Sodium Chloride 0.9% intravenous solution [...] Sayda Kelley Within 1 to [address] [address]- Business (1) Additional Instructions: neurologist you may also follow up with him Charles Nicole Within 1 to 2 days [address] [place] [address]- Business (1) Additional Instructions: Return to ED if symptoms worsen Patient Education Paresthesia, Rusg-ch-Wzpr Restless Legs Syndrome Problem List/Past Medical History [...] Lymph Auto: 30.6 % (09/13/18 23:03:00 EDT) Cole Auto: 7.2 % (09/13/18 23:03:00 EDT) Eos Auto: 2.2 % (09/13/18 23:03:00 EDT) Basophil Auto: 0.6 % (09/13/18 23:03:00 EDT) Neutro Absolute: 5.9 E9/L (09/13/18 23:03:00 EDT) Lymph Absolute: 3 E9/L (09/13/18 23:03:00 EDT) Cole Absolute: 0.7 E9/L (09/13/18 23:03:00 EDT) Eos [...] Document Reviewed: 01/29/2012 ExitCare? Patient Information ?2015 [employer] [place]. This information is not intended to replace [...] ? Drawing. ? Crawling. ? Worming. ? Hammond. ? Tingling. ? Pins and needles. ? [...] Document Reviewed: 08/06/2011 ExitCare? Patient Information ?2015 [employer]. This information is not intended to replace advice given to you by your health care provider. Make sure you discuss any questions you have with your health care provider. Normal [facility] ED Patient Summaryon 019 ED Patient Summary [place] [id number] Patient Discharge Instructions Person Information Name: ARIADNA HALEY Age: 37 Years Arrival Date: 09/13/2018 10:16 PM Discharge Diagnosis: 1:Restless leg syndrome Primary Care Physician: Charles Nicole DO Provider Information Primary Provider: Génesis Lozoya DO Advanced Band Reamer Machine Operator:None The exam and treatment you received in the Emergency Department were for an urgent problem and are not intended as complete care. It is important that you follow up with a doctor, nurse practitioner, or physician?s assistant produce manager for ongoing care. If your symptoms [...] Address: When: Sayda Kelley [facility], [address] [facility] [place] [address] Business (1) Within 1 to 2 days Comments: neurologist you may also follow up with him With: Address: When: Charles Nicole [address] [place] [address] Business (1) Within 1 to 2 days Comments: Return to ED if symptoms worsen In the event that this physician does not participate in your insurance network, please consult with your insurance company to find a nearby participating provider. Patient Education Materials: Paresthesia, Gcxq-gd-Alzy; Restless Legs Syndrome A MESSAGE TO ALL PATIENTS REGARDING OPIOIDS PRESCRIPTION OPIOIDS: WHAT YOU NEED TO KNOW Prescription opioids can be used to help relieve oqlrglon-nd-ujqbih pain and are often prescribed following a [...] be struggling with addiction, tell your health childcare director and ask for guidance or call [employer]?S National Helpline at 7-637-709-HELP. v Source: US Department of Health and Human Services/Center for Disease Control & Prevention [facility] Medications Given: Medication Dose Route Sodium Chloride 0.9% intravenous solution 1000.00 mL Initial Volume 1000.00 mL/hr IV Piggyback Left Mid Forearm Medication Information: New Medications [id number], [address], [place] [id number], [phone] gabapentin (gabapentin 100 mg Cap) 1 Capsules By Mouth every day for 7 Days. Refills: 0. magnesium oxide (magnesium oxide 400 mg Tab) 1 Tabs By Mouth every day for 7 Days. Refills: 0. [facility], [address] [place], [place] [id number], [phone] gabapentin (gabapentin 100 mg Cap) 1 Capsules By Mouth every day for 7 Days. Refills: 0. magnesium oxide (magnesium oxide 400 mg Tab) 1 Tabs By Mouth every day for 7 Days. Refills: 0. Medications to Continue with No Changes Other Medications metformin (metformin 500 mg ER Tab) 250 Milligram By Mouth 2 times a day. Comment: Pharmacy Information: Thank you for choosing [facility] Patient Education Materials: Paresthesia Paresthesia is [...] Document Reviewed: 01/29/2012 ExitCare? Patient Information ?2014 [employer]. This information is not intended to replace [...] ? Drawing. ? Crawling. ? Worming. ? Hammond. ? Tingling. ? Pins and needles. ? [...] Document Reviewed: 08/06/2011 ExitCare? Patient Information ?2014 [employer]. This information is not intended to replace advice given to you by your health care provider. Make sure you discuss any questions you have with your health care provider. TERA Dorantes NICOLE B , have received the following patient education materials/instruction s and have verbalized understanding: Patient Education Materials: Paresthesia, Oylq-eq-Vpea; Restless Legs Syndrome Follow-up Instructions: With: Address: When: Sayda Kelley [address] [address] Business (1) Within 1 to 2 days Comments: neurologist you may also follow up with him With: Address: When: [address] [address] [place] (1) Within 1 to 2 days Comments: Return to ED if symptoms worsen Prescriptions: [gabapentin (gabapentin 100 mg Cap)] [gabapentin (gabapentin 100 mg Cap)] [magnesium oxide (magnesium oxide 400 mg Tab)] [magnesium oxide (magnesium oxide 400 mg Tab)] Patient Signature Date Clinician/Nurse Signature Date 09/14/18 00:21:38 Normal [facility] Hep Fun Panelon 09-14-2018 Bilirubin.direct [Mass/Vol] [facility] Abnormal 0.1-0.9 [facility] Comment on above: Result Comment: Resu lt verified by Discern Rule. Performed result [facility] (Unable to Calculate) was sent as an Alpha code due the inability to calculate a valid numeric value. Performed By: #### 1 [id number], 9699666, 1953689, 0274253, 37432289, 3000442, 4368728, 0904454, 7395807, 05885825, 9968977 #### [facility] [address] [place] [address] Albumin [Mass/Vol] 1.1 g/dL Normal 1.1-2.2 [facility] Comment on above: Performed By: #### 1 6979524, 9899344, 6175050, 7895673, 54053428, 5817772, 4155750, 3688212, 9893538, 47320220, 3032705 #### [facility] [address] [place] [address] Albumin [Mass/Vol] 4.1 g/dL Normal 3.3-5.0 [facility] Comment on above: Performed By: #### 1 9065444, 5377802, 7084102, 5461728, 08389304, 7722384, 2000628, 2933355, 2554485, 46822136, 4033692 #### [facility] [address] [place] [address] ALP [Catalytic activity/Vol] 69 Int._Unit/L Normal 21-98 [facility] Comment on above: Performed By: #### 1 1142339, 5455916, 5879719, 0118109, 89620336, 5721506, 6817235, 2807872, 9287513, 84994355, 4892539 #### [facility] [address] [place] [address] ALT No additional P-5'-P [Catalytic activity/Vol] 27 Int._Unit/L Normal 6-46 [facility] Comment on above: Performed By: #### 1 9917622, 0340709, 4339734, 8595420, 79217711, 9616897, 3572808, 1267753, 3967329, 58788840, 3404038 #### [facility] [address] [place] [address] AST [Catalytic activity/Vol] 16 Int._Unit/L Normal 5-43 [facility] Comment on above: Performed By: #### 1 3760183, 2213134, 6350822, 7952748, 58198100, 6724785, 9820316, 1471339, 8952204, 91508282, 9936488 #### [facility] [address] [place] [address] Bilirubin [Mass/Vol] 0.5 mg/dL Normal 0.0-1.1 [facility] Comment on above: Performed By: #### 1 8771498, 3374558, 1900788, 4890191, 61244732, 7016723, 1845512, 8934509, 5855260, 94155964, 3726693 #### [facility] [address] [place] [address] Bilirubin.direct [Mass/Vol] mg/dL Normal 0.1-0.4 [facility] Comment on above: Performed By: #### 1 1146533, 8779275, 4460723, 8053458, 81910197, 8271635, 7539354, 9543953, 1313835, 59195392, 3133499 #### [facility] [address] [place] [address] Globulin (S) [Mass/Vol] 3.7 g/dL Normal 1.4-4.0 [facility] Comment on above: Performed By: #### 1 4836181, 3516713, 0938596, 3588828, 62447767, 9829586, 3232793, 5543857, 6106102, 30244040, 6759454 #### [facility] [address] [place] [address] Protein [Mass/Vol] 7.8 g/dL Normal 6.0-7.8 [facility] Comment on above: Performed By: #### 1 0998320, 8945641, 3507688, 6609277, 24184604, 4400263, 3976164, 5310889, 7500833, 54361241, 3856061 #### [facility] [address] [place] [address] Magnesiumon 09-14-2018 Magnesium [Mass/Vol] 1.9 mg/dL Normal 1.3-2.4 [facility] Comment on above: Performed By: #### 1 8664312, 1405797, 7756005, 8802011, 45625220, 1434786, 9527702, 8556490, 8255831, 00817503, 9101649 #### [facility] [address] [place] [address] Myoglobinon 09-14-2018 Myoglobin [Mass/Vol] 9 ng/mL Normal <=69 [facility] Comment on above: Performed By: #### 1 0824819, 0278881, 5082293, 5966805, 63420315, 5383424, 0404946, 9943936, 3481617, 98251468, 9999638 #### [facility] [address] [place] [address] PT & PTTon 09-14-2018 aPTT Coag (PPP) [Time] 34.5 second(s) Normal 25.1-36.5 [facility] Comment on above: Result Comment: Hepa rin therapeutic range (represented by Anti-Factor Xa activity of 0.2 - 0.4 U/mL) corresponds to PTT of 56.6 - 109.0 sec. Performed By: #### 1 5913216, 4038398, 2740946, 6081122, 45169421, 7888481, 8092152, 1660773, 7309547, 16454326, 2871282 #### [facility] [address] [place] [address] INR Coag (PPP) [Relative time] 1.0 {INR} [facility] Comment on above: Result Comment: INR results are specifically intended to assess patients stabilized on long-term Anticoagulation therapy suggested INR?s ?Less Intensive Anticoagulation? 2.0 ? 3.0 Conventional Range 3.0 ? 4.5 Performed By: #### 1 8480480, 5114803, 6965315, 2852100, 29621309, 0896373, 4774661, 1995242, 4407306, 89298509, 7095284 #### [facility] [address] [place] [address] PT Coag (PPP) [Time] 11.2 second(s) Normal 10.2-12.9 [facility] Comment on above: Performed By: #### 1 5318053, 3540536, 1183646, 2528376, 35804299, 4995659, 6327803, 0082056, 3516335, 24450423, 1386784 #### [facility] [address] [place] [address] Phosphoruson 09-14-2018 Phosphate [Mass/Vol] 3.8 mg/dL Normal 1.9-4.6 [facility] Comment on above: Performed By: #### 1 9571117, 5406540, 0123992, 3276985, 63240319, 7136258, 3998102, 8668057, 4869688, 17946113, 0738808 #### [facility] [address] [place] [address] Troponin 0 Hr.on 09-14-2018 Troponin I.cardiac [Mass/Vol] ng/mL Normal <=0.03 [facility] Comment on above: Result Comment: New Troponin Assay 10/05/13 [place] Cutoff value > or = 0.03 ng/mL in conjunction with clinical conditions of myocardial infarction. ([email or web address]) Performed By: #### 1 9955939, 2436529, 4672137, 1027107, 19185414, 5512558, 6480540, 9662544, 2510947, 38449509, 3901371 #### [facility] [address] [place] [address] UA With Cult Reflexon 2018 Bacteria LM Ql (Urine sed) TRACE Normal Trace [facility] Comment on above: Performed By: #### 1 6668454, 7897320, 3333226, 8913934, 43987636, 7462547, 2261906, 4901341, 2513624, 27057830, 8303665 #### [facility] [address] [place] [address] Bilirubin Ql (U) Negative Normal Negative [facility] Comment on above: Performed By: #### 1 4624008, 6430372, 9138497, 5292204, 26594673, 0742906, 9889044, 2204996, 2298093, 17904800, 6046995 #### [facility] [address] [place] [address] Clarity (U) CLEAR Normal Clear [facility] Comment on above: Performed By: #### 1 0127424, 6136072, 7236424, 0811531, 63675188, 4607165, 6826781, 1532182, 2184946, 24934199, 0098445 #### [facility] [address] [place] [address] Color (U) YELLOW Normal Yellow [facility] Comment on above: Performed By: #### 1 3601454, 3422930, 4186412, 7904092, 25508870, 3540559, 0857695, 1669578, 6471433, 28858656, 1080580 #### [facility] [address] [place] [address] Epithelial cells.squamous LM.HPF (Urine sed) [#/Area] 0-2 Normal 0-2 [facility] Comment on above: Performed By: #### 1 6880280, 2685681, 9889572, 7538698, 24357458, 3030224, 9117654, 5778170, 5428117, 77452850, 4740739 #### [facility] [address] [place] [address] Glucose Test strip (U) [Mass/Vol] Negative Normal Negative [facility] Comment on above: Performed By: #### 1 2492139, 2722043, 7347796, 7506968, 56219154, 2525876, 7729183, 1188162, 8214908, 79394653, 6646612 #### [facility] [address] [place] [address] Hemoglobin Ql (U) Negative Normal Negative [facility] Comment on above: Performed By: #### 1 9209512, 4608153, 4524104, 4268060, 59467823, 3398412, 5455154, 9610542, 3837661, 30803471, 5204436 #### [facility] [address] [place] [address] Ketones (U) [Mass/Vol] Negative Normal Negative [facility] Comment on above: Performed By: #### 1 5017431, 3348474, 2109613, 2800640, 37733733, 7655240, 7060512, 3734225, 5593200, 84790066, 7600521 #### [facility] [address] [place] [address] Bier.plasma/Bier .RBC (Bld) [Mass ratio] 0-3 Normal 0-3 [facility] Comment on above: Performed By: #### 1 0370124, 6166987, 2935211, 8323208, 16757719, 2704686, 7546195, 0380701, 4323514, 99188966, 4024826 #### [facility] [address] [place] [address] Mucus Ql (Urine sed) TRACE Normal [facility] Comment on above: Performed By: #### 1 7198886, 5827432, 3275169, 1909886, 58437865, 8687913, 6040053, 0826958, 3103694, 37308430, 3930722 #### [facility] [address] [place] [address] Nitrite Ql (U) Negative Normal Negative [facility] Comment on above: Performed By: #### 1 6084546, 9230760, 5858441, 9383798, 75029089, 8923674, 2294927, 8767469, 8868709, 66309206, 0009506 #### [facility] [address] [place] [address] pH (U) 6.0 [pH] 5.0-9.0 [facility] Comment on above: Performed By: #### 1 2124270, 4931866, 4796635, 1913136, 52920483, 9460604, 7026064, 3523213, 1910897, 80468128, 9862735 #### [facility] [address] [place] [address] Protein (U) [Mass/Vol] Negative Normal Negative [facility] Comment on above: Performed By: #### 1 1135226, 9980801, 0599199, 9412074, 49569511, 5841387, 2952536, 1435439, 8513146, 49358980, 2569982 #### [facility] [address] [place] [address] Specific gravity (U) [Rel density] 1.010 1.005-1.030 [facility] Comment on above: Performed By: #### 1 4692682, 8305429, 8736723, 0097091, 16688816, 2737328, 2077435, 0396943, 2843482, 23467625, 9131387 #### [facility] [address] [place] [address] UA Spec Desc Clean Catch Normal [facility] Comment on above: Performed By: #### 1 2347741, 7452065, 1522303, 7569471, 55885254, 9060109, 8746310, 1519158, 5616387, 62842703, 8592289 #### [facility] [address] [place] [address] Urobilinogen Qn (U) 0.2 {Carmella'U}/dL Normal 0.0-1.0 [facility] Comment on above: Performed By: #### 1 4953001, 7461509, 3473227, 4260506, 96016389, 0490843, 2534839, 4219672, 6292913, 79834076, 2248425 #### [facility] [address] [place] [address] WBC Auto Ql (U) Negative Normal Negative [facility] Comment on above: Performed By: #### 1 0202971, 6139258, 8993221, 1726570, 18044606, 2156282, 0770839, 4687381, 3559124, 32647826, 3398457 #### [facility] [address] [place] [address] WBC LM.HPF (Urine sed) [#/Area] 0-5 Normal 0-5 [facility] Comment on above: Performed By: #### 1 7894684, 5190671, 0959102, 0305961, 54821610, 4143424, 6910890, 7248385, 3532064, 65050153, 2817147 #### [facility] [address] [place] [address] XR Chest Single Viewon 09-14 XR Chest [...] M.D. Transcribed by: minoo Technologist: AP Normal [facility] XR FOOT LEFT (MIN 3 VIEWS)on 09-14-2018 XR FOOT LEFT (MIN 3 VIEWS) Radiology exam is complete. No Radiologist dictation. Please follow up with ordering provider. Final result Normal [facility] XR FOOT RIGHT (MIN 3 VIEWS)o n 04-24-2019 XR FOOT RIGHT (MIN 3 VIEWS) Radiology exam is complete. No Radiologist dictation. Please follow up with ordering provider. Final result Normal [facility] eGFRon 09-14-2018 GFR/1.73 sq M predicted among blacks MDRD (S/P/Bld) [Vol rate/Area] mL/min/{1.73_m2} Normal >=59 [facility] Comment on above: Order Comment: Order added by Discern Expert. Result Comment: eGFR is race adjusted. AA=. Performed By: #### 1 7501161, 6758909, 7403422, 6848047, 87242287, 7425789, 0156855, 1933557, 6930040, 30875215, 2658478 #### [facility] [address] [place] [address] GFR/1.73 sq M predicted among non-blacks MDRD (S/P/Bld) [Vol rate/Area] mL/min/{1.73_m2} Normal >=59 [facility] Comment on above: Order Comment: Order added by Discern Expert. 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 Kidney failure is indicated at less than 15 mL/min/1.73m2. Performed By: #### 1 8627647, 3575331, 4614295, 5995575, 66579940, 5132228, 6342695, 4557805, 2532118, 44614825, 5312410 #### [facility] [address] [place] [address] Vital Signs Date Time Vital Sign Value Performing Clinician Facility 02-14-2025 09:42-0400 Body height 170.18 cm Gay Enciso [employer] Work Phone: [facility] 02-14-2025 09:42-0400 Diastolic blood pressure 76 mm[Hg] Gay Enciso [employer] Work Phone: [facility] 02-14-2025 09:42-0400 Heart rate 65 /min Gay Enciso [employer] Work Phone: [facility] 02-14-2025 09:42-0400 SaO2% (BldA) [Mass fraction] 97 % Gay Britt [employer] Work Phone: [facility] 02-14-2025 09:42-0400 Systolic blood pressure 118 mm[Hg] Gay Britt [employer] Work Phone: [facility] 01-31-2025 11:40-0400 Diastolic blood pressure 80 mm[Hg] Gay Britt [employer] Work Phone: [facility] 01-31-2025 11:40-0400 Heart rate 86 /min Gay Britt [employer] Work Phone: [facility] 01-31-2025 11:40-0400 Respiratory rate 18 /min Gay Britt [employer] Work Phone: [facility] 01-31-2025 11:40-0400 SaO2% (BldA) [Mass fraction] 94 % Gay Britt [employer] Work Phone: [facility] 01-31-2025 11:40-0400 Systolic blood pressure 116 mm[Hg] Gay Britt [employer] Work Phone: [facility] 01-31-2025 10:11-0400 Body height 170.18 cm Gay Britt [employer] Work Phone: [facility] 01-31-2025 10:11-0400 Body weight 127 kg Gay Britt [employer] Work Phone: [facility] 01-24-2025 14:20-0400 Diastolic blood pressure 68 mm[Hg] Chair [place] Work Phone: [facility] 01-24-2025 14:20-0400 Heart rate 82 /min Chair [place] Work Phone: [facility] 01-24-2025 14:20-0400 Respiratory rate 18 /min Chair [place] Work Phone: [facility] 01-24-2025 14:20-0400 SaO2% (BldA) [Mass fraction] 98 % Chair [place] Work Phone: [facility] 01-24-2025 14:20-0400 Systolic blood pressure 111 mm[Hg] Chair [place] Work Phone: [facility] 01-24-2025 10:42-0400 Body temperature 97.81 [degF] Chair [place] Work Phone: [facility] 01-17-2025 10:38-0400 Body height 170.18 cm Gay Johnmer [employer] Work Phone: [facility] 01-17-2025 10:38-0400 Diastolic blood pressure 62 mm[Hg] Gay Johnmer [employer] Work Phone: [facility] 01-17-2025 10:38-0400 Heart rate 92 /min Gayomer Johnmer [employer] Work Phone: [facility] 01-17-2025 10:38-0400 SaO2% (BldA) [Mass fraction] 96 % Gayomer Johnmer [employer] Work Phone: [facility] 01-17-2025 10:38-0400 Systolic blood pressure 108 mm[Hg] Gay Johnmer [employer] Work Phone: [facility] 01-11-2025 13:51-0400 Body temperature 98.29 [degF] Chair [place] Work Phone: [facility] 01-11-2025 13:51-0400 Diastolic blood pressure 91 mm[Hg] Chair Gabbi Work Phone: [facility] 01-11-2025 13:51-0400 Heart rate 76 /min Chair [place] Work Phone: [facility] 01-11-2025 13:51-0400 Respiratory rate 20 /min Chair [place] Work Phone: [facility] 01-11-2025 13:51-0400 SaO2% (BldA) [Mass fraction] 98 % Chair Gabbi Work Phone: [facility] 01-11-2025 13:51-0400 Systolic blood pressure 146 mm[Hg] Chair [place] Work Phone: [facility] 12-14-2024 14:10-0400 Diastolic blood pressure 71 mm[Hg] Chair [place] Work Phone: [facility] 12-14-2024 14:10-0400 Heart rate 83 /min Chair Gabbi Work Phone: [facility] 12-14-2024 14:10-0400 Respiratory rate 18 /min Chair Gabbi Work Phone: [facility] 12-14-2024 14:10-0400 SaO2% (BldA) [Mass fraction] 96 % Chair [place] Work Phone: [facility] 12-14-2024 14:10-0400 Systolic blood pressure 128 mm[Hg] Chair Gabbi Work Phone: [facility] 12-12-2024 10:45-0400 Body height 170.18 cm Gayomer Johnmer [employer] Work Phone: [facility] 12-12-2024 10:45-0400 Body mass index (BMI) [Ratio] 44.8 kg/m2 Gay Britt [employer] Work Phone: [facility] 12-12-2024 10:45-0400 Body weight 129.72 kg Gay Johnmer [employer] Work Phone: [facility] 12-12-2024 10:45-0400 Diastolic blood pressure 71 mm[Hg] Gayomer Johnmer [employer] Work Phone: [facility] 12-12-2024 10:45-0400 Heart rate 63 /min Gayomer Johnmer [employer] Work Phone: [facility] 12-12-2024 10:45-0400 Systolic blood pressure 109 mm[Hg] Gay Johnmer [employer] Work Phone: [facility] 11-30-2024 09:08-0400 Diastolic blood pressure 84 mm[Hg] Gay Enciso [employer] Work Phone: [facility] 11-30-2024 09:08-0400 Heart rate 64 /min Gay Enciso [employer] Work Phone: [facility] 11-30-2024 09:08-0400 SaO2% (BldA) [Mass fraction] 98 % Gay Enciso [employer] Work Phone: [facility] 11-30-2024 09:08-0400 Systolic blood pressure 120 mm[Hg] Gay Enciso [employer] Work Phone: [facility] 11-29-2024 14:46-0400 Body temperature 97.81 [degF] Chair Gabbi Work Phone: [facility] 11-29-2024 14:46-0400 Diastolic blood pressure 73 mm[Hg] Chair [place] Work Phone: [facility] 11-29-2024 14:46-0400 Heart rate 77 /min Chair [place] Work Phone: [facility] 11-29-2024 14:46-0400 Respiratory rate 18 /min Chair [place] Work Phone: [facility] 11-29-2024 14:46-0400 SaO2% (BldA) [Mass fraction] 98 % Chair [place] Work Phone: [facility] Comment on above: 11-29-2024 14:46-0400 Systolic blood pressure 122 mm[Hg] Chair [place] Work Phone: [facility] 11-29-2024 09:13-0400 Body height 170.2 cm Vaibhav Carvalho APRN.[employer] SERV[employer]OCIATE Work Phone: [facility] 11-29-2024 09:13-0400 Body mass index (BMI) [Ratio] 45.12 kg/m2 Vaibhav Carvalho APRN.[employer] SERV[employer]IATE Work Phone: [facility] 11-29-2024 09:13-0400 Body temperature 97.5 [degF] Vaibhav Deven [employer]ELOPER.[employer] Work Phone: [facility] 11-29-2024 09:13-0400 Body weight 130.7 kg Vaibhav Deven [employer] DEVELOPER.[employer]IATE Work Phone: [facility] 11-29-2024 09:13-0400 Diastolic blood pressure 57 mm[Hg] Vaibhav Deven [employer] DEVELOPER.[employer] SERV[employer]IATE Work Phone: [facility] 11-29-2024 09:13-0400 Heart rate 88 /min Vaibhav Deven [employer] DEVELOPER.[employer]OCIATE Work Phone: [facility] 11-29-2024 09:13-0400 Respiratory rate 18 /min Vaibhav Deven [employer] DEVELOPER.[employer] SERV[employer] ASSOCIATE Work Phone: [facility] 11-29-2024 09:13-0400 SaO2% (BldA) [Mass fraction] 98 % Vaibhav Deven [employer] DEVELOPER.[employer] SERV[employer] ASSOCIATE Work Phone: [facility] 11-29-2024 09:13-0400 Systolic blood pressure 113 mm[Hg] Vaibhav Deven [employer] DEVELOPER.[employer] SERV[employer] ASSOCIATE Work Phone: [facility] 11-16-2024 13:47-0400 Body temperature 98.01 [degF] Chair [place] Work Phone: [facility] 11-16-2024 13:47-0400 Diastolic blood pressure 70 mm[Hg] Chair [place] Work Phone: [facility] 11-16-2024 13:47-0400 Heart rate 89 /min Chair Gabbi Work Phone: [facility] 11-16-2024 13:47-0400 Respiratory rate 20 /min Chair [place] Work Phone: [facility] 11-16-2024 13:47-0400 SaO2% (BldA) [Mass fraction] 97 % Chair [place] Work Phone: [facility] 11-16-2024 13:47-0400 Systolic blood pressure 101 mm[Hg] Chair Gabbi Work Phone: [facility] 11-13-2024 11:17-0400 Body height 170.18 cm Gay Enciso [employer] Work Phone: [facility] 11-13-2024 11:17-0400 Body mass index (BMI) [Ratio] 44.1 kg/m2 Gay Johnmer [employer] Work Phone: [facility] 11-13-2024 11:17-0400 Body weight 127.91 kg Gay Enciso [employer] Work Phone: [facility] 11-13-2024 11:17-0400 Diastolic blood pressure 78 mm[Hg] Gay Enciso [employer] Work Phone: [facility] 11-13-2024 11:17-0400 Heart rate 96 /min Gay Enciso [employer] Work Phone: [facility] 11-13-2024 11:17-0400 Systolic blood pressure 104 mm[Hg] Gay Johnmer [employer] Work Phone: [facility] 10-31-2024 14:46-0400 Diastolic blood pressure 76 mm[Hg] Chair Gabbi Work Phone: [facility] 10-31-2024 14:46-0400 Heart rate 68 /min Chair [place] Work Phone: [facility] 10-31-2024 14:46-0400 Respiratory rate 20 /min Chair [place] Work Phone: [facility] 10-31-2024 14:46-0400 SaO2% (BldA) [Mass fraction] 94 % Chair [place] Work Phone: [facility] Comment on above: 10-31-2024 14:46-0400 Systolic blood pressure 133 mm[Hg] Chair [place] Work Phone: [facility] 10-31-2024 09:19-0400 Body temperature 97.81 [degF] Chair [place] Work Phone: [facility] 2024 14:16-0400 Body mass index (BMI) [Ratio] 44.01 kg/m2 Chair Gabbi Work Phone: [facility] 2024 14:16-0400 Body temperature 97.59 [degF] Chair Gabbi Work Phone: [facility] 2024 14:16-0400 Body weight 127.5 kg Chair Gabbi Work Phone: [facility] 2024 14:16-0400 Diastolic blood pressure 78 mm[Hg] Chair [place] Work Phone: [facility] 2024 14:16-0400 Heart rate 85 /min Chair [place] Work Phone: [facility] 2024 14:16-0400 Respiratory rate 16 /min Chair Gabbi Work Phone: [facility] 2024 14:16-0400 SaO2% (BldA) [Mass fraction] 96 % Chair [place] Work Phone: [facility] 2024 14:16-0400 Systolic blood pressure 113 mm[Hg] Chair [place] Work Phone: [facility] 10-02-2024 14:15-0400 Body temperature 98.29 [degF] Chair [place] Work Phone: [facility] 10-02-2024 14:15-0400 Diastolic blood pressure 80 mm[Hg] Chair [place] Work Phone: [facility] 10-02-2024 14:15-0400 Heart rate 76 /min Chair [place] Work Phone: [facility] 10-02-2024 14:15-0400 Respiratory rate 16 /min Chair [place] Work Phone: [facility] 10-02-2024 14:15-0400 SaO2% (BldA) [Mass fraction] 97 % Chair Gabbi Work Phone: [facility] 10-02-2024 14:15-0400 Systolic blood pressure 129 mm[Hg] Chair Gabbi Work Phone: [facility] 09-18-2024 13:20-0400 Body temperature 97.59 [degF] Chair [place] Work Phone: [facility] 09-18-2024 13:20-0400 Diastolic blood pressure 84 mm[Hg] Chair Gabbi Work Phone: [facility] 09-18-2024 13:20-0400 Heart rate 107 /min Chair [place] Work Phone: [facility] 09-18-2024 13:20-0400 Respiratory rate 18 /min Chair [place] Work Phone: [facility] 09-18-2024 13:20-0400 SaO2% (BldA) [Mass fraction] 97 % Chair Gabbi Work Phone: [facility] 09-18-2024 13:20-0400 Systolic blood pressure 115 mm[Hg] Chair [place] Work Phone: [facility] 09-06-2024 16:17-0400 Heart rate 90 /min Gay Enciso [employer] Work Phone: [facility] 09-06-2024 16:17-0400 SaO2% (BldA) [Mass fraction] 97 % Gay Enciso [employer] Work Phone: [facility] 09-06-2024 13:54-0400 Diastolic blood pressure 69 mm[Hg] Chair Gabbi Work Phone: [facility] 09-06-2024 13:54-0400 Heart rate 90 /min Chair [place] Work Phone: [facility] 09-06-2024 13:54-0400 Respiratory rate 18 /min Chair [place] Work Phone: [facility] 09-06-2024 13:54-0400 SaO2% (BldA) [Mass fraction] 97 % Chair Gabbi Work Phone: [facility] 09-06-2024 13:54-0400 Systolic blood pressure 110 mm[Hg] Chair Gabbi Work Phone: [facility] 09-06-2024 08:43-0400 Body height 170.2 cm Vaibhav Deven [employer] Work Phone: [facility] 09-06-2024 08:43-0400 Body mass index (BMI) [Ratio] 45.5 kg/m2 Vaibhav Deven [employer] Work Phone: [facility] 09-06-2024 08:43-0400 Body temperature 97.5 [degF] Vaibhav Deven [employer] Work Phone: [facility] 09-06-2024 08:43-0400 Body weight 131.8 kg Vaibhav Deven [employer] Work Phone: [facility] 09-06-2024 08:43-0400 Diastolic blood pressure 64 mm[Hg] Vaibhav Deven [employer] Work Phone: [facility] 09-06-2024 08:43-0400 Heart rate 77 /min Vaibhav Deven [employer] Work Phone: [facility] 09-06-2024 08:43-0400 Respiratory rate 18 /min Vaibhav Deven [employer] Work Phone: [facility] 09-06-2024 08:43-0400 SaO2% (BldA) [Mass fraction] 97 % Vaibhav Deven [employer] Work Phone: [facility] 09-06-2024 08:43-0400 Systolic blood pressure 116 mm[Hg] Vaibhav Deven [employer] Work Phone: [facility] 09-04-2024 15:04-0400 Body height 170.2 cm Gordo Barfield MD Work Phone: [facility] 09-04-2024 15:04-0400 Body mass index (BMI) [Ratio] 44.32 kg/m2 Gordo Barfield MD Work Phone: [facility] 09-04-2024 15:04-0400 Body weight 128.37 kg Gordo Barfield MD Work Phone: [facility] 09-04-2024 15:04-0400 Diastolic blood pressure 73 mm[Hg] Gordo Barfield MD Work Phone: [facility] 09-04-2024 15:04-0400 Heart rate 101 /min Gordo Barfield MD Work Phone: [facility] 09-04-2024 15:04-0400 Systolic blood pressure 112 mm[Hg] Gordo Barfield MD Work Phone: [facility] 08-08-2024 14:36-0400 Diastolic blood pressure 87 mm[Hg] Chair [place] Work Phone: [facility] 08-08-2024 14:36-0400 Heart rate 83 /min Chair [place] Work Phone: [facility] 08-08-2024 14:36-0400 Respiratory rate 18 /min Chair [place] Work Phone: [facility] 08-08-2024 14:36-0400 SaO2% (BldA) [Mass fraction] 97 % Chair [place] Work Phone: [facility] 08-08-2024 14:36-0400 Systolic blood pressure 129 mm[Hg] Chair Gabbi Work Phone: [facility] 08-08-2024 10:54-0400 Body temperature 98.01 [degF] Chair [place] Work Phone: [facility] 07-31-2024 16:05-0400 Diastolic blood pressure 70 mm[Hg] Gay Enciso NP-C Work Phone: [facility] 07-31-2024 16:05-0400 Heart rate 108 /min Gayomer Enciso [employer] Work Phone: [facility] 07-31-2024 16:05-0400 SaO2% (BldA) [Mass fraction] 96 % Gayomer Enciso [employer] Work Phone: [facility] 07-31-2024 16:05-0400 Systolic blood pressure 104 mm[Hg] Gay Britt [employer] Work Phone: [facility] 07-26-2024 15:06-0500 Body height 170.2 cm Lois Holm MD Work Phone: [facility] 07-26-2024 15:06-0500 Body mass index (BMI) [Ratio] 44.92 kg/m2 Lois Holm MD Work Phone: [facility] 07-26-2024 15:06-0500 Body weight 130.09 kg Lois Holm MD Work Phone: [facility] 07-26-2024 15:06-0500 Diastolic blood pressure 60 mm[Hg] Lois Holm MD Work Phone: [facility] 07-26-2024 15:06-0500 Heart rate 84 /min Lois Holm MD Work Phone: [facility] 07-26-2024 15:06-0500 Systolic blood pressure 100 mm[Hg] Lois Holm MD Work Phone: [facility] 07-19-2024 11:27-0500 Diastolic blood pressure 90 mm[Hg] Gay Enciso [employer] Work Phone: [facility] 07-19-2024 11:27-0500 Heart rate 78 /min Gayomer Johnmer [employer] Work Phone: [facility] 07-19-2024 11:27-0500 Respiratory rate 16 /min Gayomer Enciso [employer] Work Phone: [facility] 07-19-2024 11:27-0500 SaO2% (BldA) [Mass fraction] 96 % Gay Enciso [employer] Work Phone: [facility] 07-19-2024 11:27-0500 Systolic blood pressure 126 mm[Hg] Gay Enciso [employer] Work Phone: [facility] 07-19-2024 09:54-0500 Body height 170.18 cm Gay Enciso [employer] Work Phone: [facility] 07-19-2024 09:54-0500 Body weight 127 kg Gay Enciso [employer] Work Phone: [facility] 07-12-2024 14:16-0500 Body temperature 96.91 [degF] Marky Barnes PA-C Work Phone: [facility] 07-11-2024 14:30-0500 Body temperature 97.39 [degF] Chair [place] Work Phone: [facility] 07-11-2024 14:30-0500 Diastolic blood pressure 80 mm[Hg] Chair Gabbi Work Phone: [facility] 07-11-2024 14:30-0500 Heart rate 69 /min Chair [place] Work Phone: [facility] 07-11-2024 14:30-0500 Respiratory rate 18 /min Chair [place] Work Phone: [facility] 07-11-2024 14:30-0500 SaO2% (BldA) [Mass fraction] 98 % Chair Gabbi Work Phone: [facility] 07-11-2024 14:30-0500 Systolic blood pressure 119 mm[Hg] Chair [place] Work Phone: [facility] 07-10-2024 15:25-0500 Diastolic blood pressure 70 mm[Hg] [facility] 07-10-2024 15:25-0500 Heart rate 106 /min [facility] 07-10-2024 15:25-0500 SaO2% (BldA) [Mass fraction] 97 % [facility] 07-10-2024 15:25-0500 Systolic blood pressure 102 mm[Hg] [facility] 06-13-2024 14:55-0500 Diastolic blood pressure 56 mm[Hg] Chair [place] Work Phone: [facility] 06-13-2024 14:55-0500 Heart rate 70 /min Chair [place] Work Phone: [facility] 06-13-2024 14:55-0500 Respiratory rate 18 /min Chair Gabbi Work Phone: [facility] 06-13-2024 14:55-0500 SaO2% (BldA) [Mass fraction] 98 % Chair [place] Work Phone: [facility] 06-13-2024 14:55-0500 Systolic blood pressure 93 mm[Hg] Chair Gabbi Work Phone: [facility] 06-13-2024 08:55-0500 Body mass index (BMI) [Ratio] 45.08 kg/m2 Vaibhav Deven [employer] Work Phone: [facility] 06-13-2024 08:55-0500 Body temperature 97.59 [degF] Vaibhav Deven [employer]EL[employer] Work Phone: [facility] 06-13-2024 08:55-0500 Body weight 130.6 kg Vaibhav Deven [employer]EL[employer] Work Phone: [facility] 06-13-2024 08:55-0500 Diastolic blood pressure 71 mm[Hg] Vaibhav Deven [employer]EL[employer] Work Phone: [facility] 06-13-2024 08:55-0500 Heart rate 79 /min Vaibhav Deven [employer]EL[employer] Work Phone: [facility] 06-13-2024 08:55-0500 Respiratory rate 16 /min Vaibhav Deven [employer]EL[employer] Work Phone: [facility] 06-13-2024 08:55-0500 SaO2% (BldA) [Mass fraction] 98 % Vaibhav Carvalho [employer] Work Phone: [facility] 06-13-2024 08:55-0500 Systolic blood pressure 106 mm[Hg] Vaibhav Carvalho [employer]EL[employer] Work Phone: [facility] 06-06-2024 11:37-0500 Body mass index (BMI) [Ratio] 45.08 kg/m2 Oly Plascencia PA Work Phone: [facility] 06-06-2024 11:37-0500 Body weight 130.54 kg Oly Plascencia PA Work Phone: [facility] 06-06-2024 11:37-0500 Diastolic blood pressure 70 mm[Hg] Oly Plascencia PA Work Phone: [facility] 06-06-2024 11:37-0500 Systolic blood pressure 120 mm[Hg] Oly Plascencia PA Work Phone: [facility] 05-19-2024 15:02-0500 Body temperature 97.3 [degF] Chair [place] Work Phone: [facility] 05-19-2024 15:02-0500 Diastolic blood pressure 63 mm[Hg] Chair [place] Work Phone: [facility] 05-19-2024 15:02-0500 Heart rate 73 /min Chair [place] Work Phone: [facility] 05-19-2024 15:02-0500 Respiratory rate 20 /min Chair [place] Work Phone: [facility] 05-19-2024 15:02-0500 SaO2% (BldA) [Mass fraction] 98 % Chair [place] Work Phone: [facility] Comment on above: 05-19-2024 15:02-0500 Systolic blood pressure 114 mm[Hg] Chair [place] Work Phone: [facility] 04-26-2024 09:31-0500 Body temperature 97.59 [degF] Ma Sand Work Phone: [facility] 04-26-2024 09:31-0500 Diastolic blood pressure 78 mm[Hg] Ma Sand Work Phone: [facility] Comment on above: Manual 04-26-2024 09:31-0500 Heart rate 66 /min Ma Sand Work Phone: [facility] 04-26-2024 09:31-0500 Respiratory rate 16 /min Ma Sand Work Phone: [facility] 04-26-2024 09:31-0500 SaO2% (BldA) [Mass fraction] 99 % Ma Sand Work Phone: [facility] 04-26-2024 09:31-0500 Systolic blood pressure 122 mm[Hg] Ma Sand Work Phone: [facility] Comment on above: Manual 04-10-2024 10:12-0500 Body height 170.2 cm Gordo Barfeild MD Work Phone: [facility] 04-10-2024 10:12-0500 Body mass index (BMI) [Ratio] 44.95 kg/m2 Gordo Barfield MD Work Phone: [facility] 04-10-2024 10:12-0500 Body weight 130.18 kg Gordo Barfield MD Work Phone: [facility] 04-10-2024 10:12-0500 Diastolic blood pressure 70 mm[Hg] Gordo Barfield MD Work Phone: [facility] 04-10-2024 10:12-0500 Systolic blood pressure 110 mm[Hg] Gordo Barfield MD Work Phone: [facility] 04-06-2024 10:00-0500 Body height 170.2 cm Hayden Arciniega MD Work Phone: [facility] 04-06-2024 10:00-0500 Body mass index (BMI) [Ratio] 43.07 kg/m2 Hayden Arciniega MD Work Phone: [facility] 04-06-2024 10:00-0500 Body temperature 97 [degF] Hayden Arciniega MD Work Phone: [facility] 04-06-2024 10:00-0500 Body weight 124.74 kg Hayden Arciniega MD Work Phone: [facility] 04-06-2024 10:00-0500 Diastolic blood pressure 80 mm[Hg] Hayden Arciniega MD Work Phone: [facility] 04-06-2024 10:00-0500 Heart rate 86 /min Hayden Arciniega MD Work Phone: [facility] 04-06-2024 10:00-0500 SaO2% (BldA) [Mass fraction] 97 % Hayden Arciniega MD Work Phone: [facility] 04-06-2024 10:00-0500 Systolic blood pressure 136 mm[Hg] Hayden Arciniega MD Work Phone: [facility] 04-02-2024 13:27-0500 Body mass index (BMI) [Ratio] 45.42 kg/m2 Marky Mike DO Work Phone: [facility] 04-02-2024 13:27-0500 Body temperature 98.71 [degF] Marky Mike DO Work Phone: [facility] 04-02-2024 13:27-0500 Body weight 131.54 kg Marky Mike DO Work Phone: [facility] 04-02-2024 13:27-0500 Diastolic blood pressure 90 mm[Hg] Marky Mike DO Work Phone: [facility] 04-02-2024 13:27-0500 Heart rate 78 /min Marky Mike DO Work Phone: [facility] 04-02-2024 13:27-0500 SaO2% (BldA) [Mass fraction] 99 % Marky Mike DO Work Phone: [facility] 04-02-2024 13:27-0500 Systolic blood pressure 132 mm[Hg] Marky Mike DO Work Phone: [facility] 03-23-2024 14:35-0400 Body mass index (BMI) [Ratio] 44.17 kg/m2 Oly Plascencia PA Work Phone: [facility] 03-23-2024 14:35-0400 Body weight 127.91 kg Oly Plascencia PA Work Phone: [facility] 03-23-2024 14:35-0400 Diastolic blood pressure 76 mm[Hg] Oly Plascencia PA Work Phone: [facility] 03-23-2024 14:35-0400 Systolic blood pressure 122 mm[Hg] Oly Plascencia PA Work Phone: [facility] 03-23-2024 10:11-0400 Body height 170.2 cm Ma Sand Work Phone: [facility] 03-23-2024 10:11-0400 Body mass index (BMI) [Ratio] 43.06 kg/m2 Ma Sand Work Phone: [facility] 03-23-2024 10:11-0400 Body temperature 97.59 [degF] Ma Sand Work Phone: [facility] 03-23-2024 10:11-0400 Body weight 124.74 kg Ma Sand Work Phone: [facility] 03-23-2024 10:11-0400 Diastolic blood pressure 85 mm[Hg] Ma Sand Work Phone: [facility] 03-23-2024 10:11-0400 Heart rate 71 /min Ma Sand Work Phone: [facility] 03-23-2024 10:11-0400 Respiratory rate 16 /min Ma Sand Work Phone: [facility] 03-23-2024 10:11-0400 SaO2% (BldA) [Mass fraction] 94 % Ma Sand Work Phone: [facility] 03-23-2024 10:11-0400 Systolic blood pressure 135 mm[Hg] Ma Sand Work Phone: [facility] 03-16-2024 11:24-0400 Body mass index (BMI) [Ratio] 43.67 kg/m2 Luan Skip DO Work Phone: [facility] 03-16-2024 11:24-0400 Body weight 126.46 kg Luan Skip DO Work Phone: [facility] 03-16-2024 11:24-0400 Diastolic blood pressure 70 mm[Hg] Luan Skip DO Work Phone: [facility] 03-16-2024 11:24-0400 Systolic blood pressure 120 mm[Hg] Luan Skip DO Work Phone: [facility] 03-16-2024 09:20-0400 Body height 170.18 cm [employer] Gay Enciso Work Phone: [facility] 03-16-2024 09:20-0400 Body mass index (BMI) [Ratio] 43 kg/m2 [employer] Gay Johnmer Work Phone: [facility] 03-16-2024 09:20-0400 Body weight 124.73 kg [employer] Gay Johnmer Work Phone: [facility] 02-21-2024 11:04-0400 Body temperature 97.2 [degF] Ma Sand Work Phone: [facility] 02-21-2024 11:04-0400 Diastolic blood pressure 68 mm[Hg] Ma Sand Work Phone: [facility] Comment on above: manual 02-21-2024 11:04-0400 Heart rate 95 /min Ma Sand Work Phone: [facility] 02-21-2024 11:04-0400 Respiratory rate 16 /min Ma Sand Work Phone: [facility] 02-21-2024 11:04-0400 SaO2% (BldA) [Mass fraction] 98 % Ma Sand Work Phone: [facility] 02-21-2024 11:04-0400 Systolic blood pressure 102 mm[Hg] Ma Sand Work Phone: [facility] Comment on above: manual 02-16-2024 09:23-0400 Diastolic blood pressure 72 mm[Hg] [employer] Gay Britt Work Phone: [facility] 02-16-2024 09:23-0400 Heart rate 70 /min [employer] Gay Britt Work Phone: [facility] 02-16-2024 09:23-0400 Respiratory rate 16 /min [employer] Gay Britt Work Phone: [facility] 02-16-2024 09:23-0400 SaO2% (BldA) [Mass fraction] 96 % [employer] Gayomer Johnmer Work Phone: [facility] 02-16-2024 09:23-0400 Systolic blood pressure 126 mm[Hg] [employer] Gay Britt Work Phone: [facility] 02-16-2024 07:27-0400 Body height 170.18 cm [employer] Gay Britt Work Phone: [facility] 02-16-2024 07:27-0400 Body weight 122.46 kg [employer] Gayomer Johnmer Work Phone: [facility] 01-28-2024 11:31-0400 Body weight 126.[address] [facility] 01-28-2024 11:31-0400 Diastolic blood pressure 80 mm[Hg] [facility] 01-28-2024 11:31-0400 Heart rate 69 /min [facility] 01-28-2024 11:31-0400 SaO2% (BldA) [Mass fraction] 98 % [facility] 01-28-2024 11:31-0400 Systolic blood pressure 120 mm[Hg] [facility] 01-25-2024 11:30-0400 Body temperature 97.39 [degF] Ma Sand Work Phone: [facility] 01-25-2024 11:30-0400 Diastolic blood pressure 67 mm[Hg] Ma Sand Work Phone: [facility] 01-25-2024 11:30-0400 Heart rate 68 /min Ma Sand Work Phone: [facility] 01-25-2024 11:30-0400 Respiratory rate 16 /min Ma Sand Work Phone: [facility] 01-25-2024 11:30-0400 SaO2% (BldA) [Mass fraction] 99 % Ma Sand Work Phone: [facility] 01-25-2024 11:30-0400 Systolic blood pressure 92 mm[Hg] Ma Sand Work Phone: [facility] 12-27-2023 11:16-0400 Diastolic blood pressure 68 mm[Hg] Neda Liz PA-C Work Phone: [facility] 12-27-2023 11:16-0400 Systolic blood pressure 98 mm[Hg] Neda Liz PA-C Work Phone: [facility] 12-27-2023 11:02-0400 Body height 170.2 cm Neda Liz PA-C Work Phone: [facility] 12-27-2023 11:02-0400 Body mass index (BMI) [Ratio] 43.08 kg/m2 Neda Liz PA-C Work Phone: [facility] 12-27-2023 11:02-0400 Body temperature 97.7 [degF] Neda Liz PA-C Work Phone: [facility] 12-27-2023 11:02-0400 Body weight 124.8 kg Neda Liz PA-C Work Phone: [facility] 12-27-2023 11:02-0400 Heart rate 89 /min Neda Liz PA-C Work Phone: [facility] 12-27-2023 11:02-0400 Respiratory rate 16 /min Neda Liz PA-C Work Phone: [facility] 12-27-2023 11:02-0400 SaO2% (BldA) [Mass fraction] 98 % Neda Hill PA-C Work Phone: [facility] 12-16-2023 14:13-0400 Body height 170.[address] [facility] 12-16-2023 14:13-0400 Body mass index (BMI) [Ratio] 42.7 kg/m2 [facility] 12-16-2023 14:13-0400 Body temperature 98.6 [degF] [facility] 12-16-2023 14:13-0400 Body weight 123.[address] [facility] 12-16-2023 14:13-0400 Diastolic blood pressure 73 mm[Hg] [facility] 12-16-2023 14:13-0400 Heart rate 75 /min [facility] 12-16-2023 14:13-0400 Systolic blood pressure 106 mm[Hg] [facility] 11-29-2023 13:43-0400 Body temperature 97.59 [degF] Ma Sand Work Phone: [facility] 11-29-2023 13:43-0400 Diastolic blood pressure 51 mm[Hg] Ma Sand Work Phone: [facility] 11-29-2023 13:43-0400 Heart rate 73 /min Ma Sand Work Phone: [facility] 11-29-2023 13:43-0400 Respiratory rate 16 /min Ma Sand Work Phone: [facility] 11-29-2023 13:43-0400 SaO2% (BldA) [Mass fraction] 96 % Ma Sand Work Phone: [facility] 11-29-2023 13:43-0400 Systolic blood pressure 83 mm[Hg] Ma Sand Work Phone: [facility] 11-04-2023 13:55-0400 Body height 170.[address] [facility] 11-04-2023 13:55-0400 Body temperature 97.3 [degF] [facility] 11-04-2023 13:55-0400 Diastolic blood pressure 54 mm[Hg] [facility] 11-04-2023 13:55-0400 Heart rate 62 /min [facility] 11-04-2023 13:55-0400 Systolic blood pressure 104 mm[Hg] [facility] 10-27-2023 14:44-0400 Body temperature 97 [degF] Ma Sand Work Phone: [facility] 10-27-2023 14:44-0400 Diastolic blood pressure 72 mm[Hg] Ma Sand Work Phone: [facility] 10-27-2023 14:44-0400 Heart rate 97 /min Ma Sand Work Phone: [facility] 10-27-2023 14:44-0400 Respiratory rate 18 /min Ma Sand Work Phone: [facility] 10-27-2023 14:44-0400 SaO2% (BldA) [Mass fraction] 97 % Ma Sand Work Phone: [facility] 10-27-2023 14:44-0400 Systolic blood pressure 110 mm[Hg] Ma Sand Work Phone: [facility] 10-20-2023 13:10-0400 Body height 170.[address] [facility] 10-20-2023 13:10-0400 Body mass index (BMI) [Ratio] 43.2 kg/m2 [facility] 10-20-2023 13:10-0400 Body temperature 97.3 [degF] [facility] 10-20-2023 13:10-0400 Body weight 125.[address] [facility] 10-20-2023 13:10-0400 Diastolic blood pressure 54 mm[Hg] [facility] 10-20-2023 13:10-0400 Heart rate 74 /min [facility] 10-20-2023 13:10-0400 Systolic blood pressure 111 mm[Hg] [facility] 09-30-2023 10:48-0400 Body temperature 97 [degF] Ma Sand Work Phone: [facility] 09-30-2023 10:48-0400 Diastolic blood pressure 82 mm[Hg] Ma Sand Work Phone: [facility] 09-30-2023 10:48-0400 Heart rate 71 /min Ma Sand Work Phone: [facility] 09-30-2023 10:48-0400 Respiratory rate 18 /min Ma Sand Work Phone: [facility] 09-30-2023 10:48-0400 SaO2% (BldA) [Mass fraction] 97 % Ma Sand Work Phone: [facility] 09-30-2023 10:48-0400 Systolic blood pressure 132 mm[Hg] Ma Sand Work Phone: [facility] 09-22-2023 14:41-0400 Body weight 117.[address] [facility] 08-31-2023 10:34-0400 Body temperature 97.3 [degF] Ma Sand Work Phone: [facility] 08-31-2023 10:34-0400 Diastolic blood pressure 66 mm[Hg] Ma Sand Work Phone: [facility] 08-31-2023 10:34-0400 Heart rate 68 /min Ma Sand Work Phone: [facility] 08-31-2023 10:34-0400 Respiratory rate 18 /min Ma Sand Work Phone: [facility] 08-31-2023 10:34-0400 SaO2% (BldA) [Mass fraction] 99 % Ma Sand Work Phone: [facility] 08-31-2023 10:34-0400 Systolic blood pressure 105 mm[Hg] Ma Sand Work Phone: [facility] 08-05-2023 11:15-0400 Body temperature 97.39 [degF] Ma Sand Work Phone: [facility] 08-05-2023 11:15-0400 Diastolic blood pressure 41 mm[Hg] Ma Sand Work Phone: [facility] 08-05-2023 11:15-0400 Heart rate 68 /min Ma Sand Work Phone: [facility] 08-05-2023 11:15-0400 Respiratory rate 18 /min Ma Sand Work Phone: [facility] 08-05-2023 11:15-0400 SaO2% (BldA) [Mass fraction] 98 % Ma Sand Work Phone: [facility] 08-05-2023 11:15-0400 Systolic blood pressure 98 mm[Hg] Ma Sand Work Phone: [facility] 07-13-2023 11:49-0500 Body temperature 97.5 [degF] Ma Sand Work Phone: [facility] 07-13-2023 11:49-0500 Diastolic blood pressure 74 mm[Hg] Ma Sand Work Phone: [facility] 07-13-2023 11:49-0500 Heart rate 83 /min Ma Sand Work Phone: [facility] 07-13-2023 11:49-0500 Respiratory rate 18 /min Ma Sand Work Phone: [facility] 07-13-2023 11:49-0500 SaO2% (BldA) [Mass fraction] 96 % Ma Sand Work Phone: [facility] 07-13-2023 11:49-0500 Systolic blood pressure 109 mm[Hg] Ma Sand Work Phone: [facility] 07-13-2023 10:01-0500 Diastolic blood pressure 65 mm[Hg] Lois Holm MD Work Phone: [facility] 07-13-2023 10:01-0500 Systolic blood pressure 105 mm[Hg] Lios Holm MD Work Phone: [facility] 07-13-2023 09:41-0500 Body height 170.2 cm Lois Holm MD Work Phone: [facility] 07-13-2023 09:41-0500 Body mass index (BMI) [Ratio] 43.85 kg/m2 Lois Holm MD Work Phone: [facility] 07-13-2023 09:41-0500 Body weight 127.01 kg Lois Holm MD Work Phone: [facility] 07-13-2023 09:41-0500 Heart rate 71 /min Lois Holm MD Work Phone: [facility] 07-06-2023 14:48-0500 Body mass index (BMI) [Ratio] 41.81 kg/m2 Kade Richardson MD Work Phone: [facility] 07-06-2023 14:48-0500 Body weight 119.3 kg Kade Richardson MD Work Phone: [facility] 06-09-2023 08:45-0500 Body height 170.2 cm Michelle Jasmine [employer]EL[employer] SERVICE ASSOCIATE Work Phone: [facility] 06-09-2023 08:45-0500 Body mass index (BMI) [Ratio] 44.48 kg/m2 Michelle Jasmine [employer] DEVELOPER-[employer] SERVICE [employer]OCIATE Work Phone: [facility] 06-09-2023 08:45-0500 Body weight 128.82 kg Michelle Jasmine [employer] DEVELOPER-[employer] SERVICE ASSOCIATE Work Phone: [facility] 06-09-2023 08:45-0500 Diastolic blood pressure 82 mm[Hg] Michelle Jasmine [employer] DEVELOPER[employer] SERVICE ASSOCIATE Work Phone: [facility] 06-09-2023 08:45-0500 Heart rate 80 /min Michelle Jasmine [employer] DEVELOPER-[employer] SERVICE ASSOCIATE Work Phone: [facility] 06-09-2023 08:45-0500 Systolic blood pressure 146 mm[Hg] Michelle Jasmine [employer] DEVELOPER-[employer] SERVICE ASSOCIATE Work Phone: [facility] 05-26-2023 17:17-0500 Body weight 123.83 kg Christie Phan MD Work Phone: [facility] 04-26-2023 14:42-0500 Body weight 125.19 kg Christie Phan MD Work Phone: [facility] 03-19-2023 11:16-0400 Body temperature 97.7 [degF] Ma Sand Work Phone: [facility] 03-19-2023 11:16-0400 Diastolic blood pressure 54 mm[Hg] Ma Sand Work Phone: [facility] 03-19-2023 11:16-0400 Heart rate 75 /min Ma Sand Work Phone: [facility] 03-19-2023 11:16-0400 Respiratory rate 16 /min Ma Sand Work Phone: [facility] 03-19-2023 11:16-0400 SaO2% (BldA) [Mass fraction] 96 % Ma Sand Work Phone: [facility] 03-19-2023 11:16-0400 Systolic blood pressure 111 mm[Hg] Ma Sand Work Phone: [facility] 02-19-2023 10:56-0400 Body height 170.2 cm Vera Najera MD Work Phone: [facility] 02-19-2023 10:56-0400 Body temperature 97.39 [degF] Vera Najera MD Work Phone: [facility] 02-19-2023 10:56-0400 Body weight 120.75 kg Vera Najera MD Work Phone: [facility] 02-19-2023 10:56-0400 Diastolic blood pressure 69 mm[Hg] Vera Najera MD Work Phone: [facility] 02-19-2023 10:56-0400 Heart rate 110 /min Vera Najera MD Work Phone: [facility] 02-19-2023 10:56-0400 Respiratory rate 16 /min Vera Najera MD Work Phone: [facility] 02-19-2023 10:56-0400 SaO2% (BldA) [Mass fraction] 96 % Vera Najera MD Work Phone: [facility] 02-19-2023 10:56-0400 Systolic blood pressure 132 mm[Hg] Vera Najera MD Work Phone: [facility] 01-22-2023 12:09-0400 Diastolic blood pressure 76 mm[Hg] Ma Sand Work Phone: [facility] 01-22-2023 12:09-0400 Systolic blood pressure 107 mm[Hg] Ma Sand Work Phone: [facility] 01-22-2023 12:08-0400 Body temperature 97.59 [degF] Ma Sand Work Phone: [facility] 01-22-2023 12:08-0400 Heart rate 102 /min Ma Sand Work Phone: [facility] 01-22-2023 12:08-0400 Respiratory rate 16 /min Ma Sand Work Phone: [facility] 01-22-2023 12:08-0400 SaO2% (BldA) [Mass fraction] 97 % Ma Sand Work Phone: [facility] 11-19-2022 11:00-0400 Body temperature 97.2 [degF] Ma Sand Work Phone: [facility] 11-19-2022 11:00-0400 Diastolic blood pressure 54 mm[Hg] Ma Sand Work Phone: [facility] 11-19-2022 11:00-0400 Heart rate 98 /min Ma Sand Work Phone: [facility] 11-19-2022 11:00-0400 Respiratory rate 16 /min Ma Sand Work Phone: [facility] 11-19-2022 11:00-0400 SaO2% (BldA) [Mass fraction] 98 % Ma Sand Work Phone: [facility] 11-19-2022 11:00-0400 Systolic blood pressure 126 mm[Hg] Ma Sand Work Phone: [facility] 10-22-2022 11:51-0400 Body height 170.2 cm Ma Sand Work Phone: [facility] 10-22-2022 11:51-0400 Body weight 120.66 kg Ma Sand Work Phone: [facility] 10-22-2022 11:51-0400 Respiratory rate 16 /min Ma Sand Work Phone: [facility] 10-22-2022 10:50-0400 Body height 170.2 cm Vera Najera MD Work Phone: [facility] 10-22-2022 10:50-0400 Body temperature 97 [degF] Vera Najera MD Work Phone: [facility] 10-22-2022 10:50-0400 Body weight 120.75 kg Vera Najera MD Work Phone: [facility] 10-22-2022 10:50-0400 Diastolic blood pressure 55 mm[Hg] Vera Najera MD Work Phone: [facility] 10-22-2022 10:50-0400 Heart rate 78 /min Vera Najera MD Work Phone: [facility] 10-22-2022 10:50-0400 Respiratory rate 16 /min Vera Najera MD Work Phone: [facility] 10-22-2022 10:50-0400 SaO2% (BldA) [Mass fraction] 98 % Vera Najera MD Work Phone: [facility] 10-22-2022 10:50-0400 Systolic blood pressure 132 mm[Hg] Vera Najera MD Work Phone: [facility] 09-24-2022 10:22-0400 Body height 170.2 cm Ma Sand Work Phone: [facility] 09-24-2022 10:22-0400 Body temperature 97 [degF] Ma Sand Work Phone: [facility] 09-24-2022 10:22-0400 Body weight 120.2 kg Ma Sand Work Phone: [facility] 09-24-2022 10:22-0400 Diastolic blood pressure 81 mm[Hg] Ma Sand Work Phone: [facility] 09-24-2022 10:22-0400 Heart rate 77 /min Ma Sand Work Phone: [facility] 09-24-2022 10:22-0400 Respiratory rate 16 /min Ma Sand Work Phone: [facility] 09-24-2022 10:22-0400 SaO2% (BldA) [Mass fraction] 97 % Ma Sand Work Phone: [facility] 09-24-2022 10:22-0400 Systolic blood pressure 116 mm[Hg] Ma Sand Work Phone: [facility] 09-07-2022 14:03-0400 Body weight 120.2 kg Christie Phan MD Work Phone: [facility] 08-27-2022 09:45-0400 Body height 170.2 cm Rebekah Rojas APRN.ROOM SERVICE ASSOCIATE Work Phone: [facility] 08-27-2022 09:45-0400 Body temperature 97.7 [degF] Rebekah Rojas APRN.ROOM SERVICE ASSOCIATE Work Phone: [facility] 08-27-2022 09:45-0400 Body weight 118.66 kg Rebekah Rojas APRN.ROOM SERVICE ASSOCIATE Work Phone: [facility] 08-27-2022 09:45-0400 Diastolic blood pressure 55 mm[Hg] Rebekah Rojas APRN.ROOM SERVICE ASSOCIATE Work Phone: [facility] 08-27-2022 09:45-0400 Heart rate 63 /min Rebekah Rojas [employer] DEVELOPER.[employer] SERVICE ASSOCIATE Work Phone: [facility] 08-27-2022 09:45-0400 Respiratory rate 16 /min Rebekah Rojas [employer] DEVELOPER.ROOM SERVICE ASSOCIATE Work Phone: [facility] 08-27-2022 09:45-0400 SaO2% (BldA) [Mass fraction] 96 % Rebekah Rojas [employer] DEVELOPER.ROOM SERVICE ASSOCIATE Work Phone: [facility] 08-27-2022 09:45-0400 Systolic blood pressure 117 mm[Hg] Rebekah Rojas [employer] DEVELOPER.ROOM SERVICE ASSOCIATE Work Phone: [facility] 05-20-2022 13:28-0500 Body height 170.2 cm Vera Najera MD Work Phone: [facility] 05-20-2022 13:28-0500 Body temperature 97.7 [degF] Vera Najera MD Work Phone: [facility] 05-20-2022 13:28-0500 Diastolic blood pressure 70 mm[Hg] Vera Najera MD Work Phone: [facility] 05-20-2022 13:28-0500 Heart rate 93 /min Vera Najera MD Work Phone: [facility] 05-20-2022 13:28-0500 Respiratory rate 16 /min Vera Najera MD Work Phone: [facility] 05-20-2022 13:28-0500 SaO2% (BldA) [Mass fraction] 97 % Vera Najera MD Work Phone: [facility] 05-20-2022 13:28-0500 Systolic blood pressure 127 mm[Hg] Vera Najera MD Work Phone: [facility] 03-18-2022 10:49-0400 Body height 170.2 cm Vera Najera MD Work Phone: [facility] 03-18-2022 10:49-0400 Body temperature 97.81 [degF] Vera Najera MD Work Phone: [facility] 03-18-2022 10:49-0400 Body weight 113.4 kg Vera Najera MD Work Phone: [facility] 03-18-2022 10:49-0400 Diastolic blood pressure 49 mm[Hg] Vera Najera MD Work Phone: [facility] 03-18-2022 10:49-0400 Heart rate 86 /min Vera Najera MD Work Phone: [facility] 03-18-2022 10:49-0400 Respiratory rate 16 /min Vera Najera MD Work Phone: [facility] 03-18-2022 10:49-0400 SaO2% (BldA) [Mass fraction] 98 % Vera Najera MD Work Phone: [facility] 03-18-2022 10:49-0400 Systolic blood pressure 145 mm[Hg] Vera Najera MD Work Phone: [facility] 03-09-2022 11:41-0400 Body height 170.2 cm Christie Phan MD Work Phone: [facility] 03-09-2022 11:41-0400 Body weight 112.49 kg Christie Phan MD Work Phone: [facility] 03-09-2022 11:41-0400 Diastolic blood pressure 100 mm[Hg] Christie Phan MD Work Phone: [facility] 03-09-2022 11:41-0400 Systolic blood pressure 158 mm[Hg] Christie Phan MD Work Phone: [facility] 03-04-2022 10:39-0400 Body height 170.2 cm Vera Najera MD Work Phone: [facility] 03-04-2022 10:39-0400 Body temperature 97.5 [degF] Vera Najera MD Work Phone: [facility] 03-04-2022 10:39-0400 Body weight 112.76 kg Vera Najera MD Work Phone: [facility] 03-04-2022 10:39-0400 Diastolic blood pressure 48 mm[Hg] Vera Najera MD Work Phone: [facility] 03-04-2022 10:39-0400 Heart rate 79 /min Vera Najera MD Work Phone: [facility] 03-04-2022 10:39-0400 Respiratory rate 16 /min Vera Najera MD Work Phone: [facility] 03-04-2022 10:39-0400 SaO2% (BldA) [Mass fraction] 99 % Vera Najera MD Work Phone: [facility] 03-04-2022 10:39-0400 Systolic blood pressure 132 mm[Hg] Vera Najera MD Work Phone: [facility] 11-26-2021 16:00-0400 Body height 168.91 cm Mirela Kelsey Other [employer] Other 11-26-2021 16:00-0400 Body mass index (BMI) [Ratio] 37.68 kg/m2 Mirela Kelsey Other [employer] Other 11-26-2021 16:00-0400 Body temperature 98.4 [degF] Mirela Kelsey Other [employer] Other 11-26-2021 16:00-0400 Body weight 107.5 kg Mirela Kelsey Other [employer] Other 11-26-2021 16:00-0400 Diastolic blood pressure 61 mm[Hg] Mirela Kelsey Other [employer] Other 11-26-2021 16:00-0400 Systolic blood pressure 115 mm[Hg] Mirela Kelsey Other [employer] Other 10-24-2021 08:18-0400 Body weight 108.86 kg Lynne Ni MD Work Phone: [facility] 10-24-2021 08:18-0400 Diastolic blood pressure 42 mm[Hg] Lynne Ni MD Work Phone: [facility] 10-24-2021 08:18-0400 Heart rate 72 /min Lynne Ni MD Work Phone: [facility] 10-24-2021 08:18-0400 Systolic blood pressure 106 mm[Hg] Lynne Ni MD Work Phone: [facility] 10-15-2021 15:45-0400 Body height 168.91 cm Mirela Kelsey Other [employer] Other 10-15-2021 15:45-0400 Body mass index (BMI) [Ratio] 38.31 kg/m2 Mirela Kelsey Other [employer] Other 10-15-2021 15:45-0400 Body temperature 98.1 [degF] Mirela Kelsey Other [employer] Other 10-15-2021 15:45-0400 Body weight 109.32 kg Mirela Kelsey Other [employer] Other 10-15-2021 15:45-0400 Diastolic blood pressure 60 mm[Hg] Mirela Kelsey Other [employer] Other 10-15-2021 15:45-0400 Systolic blood pressure 114 mm[Hg] Mirela Kelsey Other [employer] Other 09-11-2021 15:15-0400 Body height 168.91 cm Mirela Kelsey Other [employer] Other 09-11-2021 15:15-0400 Body mass index (BMI) [Ratio] 37.99 kg/m2 Mirela Kelsey Other [employer] Other 09-11-2021 15:15-0400 Body temperature 97.9 [degF] Mirela Kelsey Other [employer] Other 09-11-2021 15:15-0400 Body weight 108.41 kg Mirela Kelsey Other [employer] Other 09-11-2021 15:15-0400 Diastolic blood pressure 83 mm[Hg] Mirela Kelsey Other [employer] Other 09-11-2021 15:15-0400 Systolic blood pressure 144 mm[Hg] Mirela Kelsey Other [employer] Other 10-07-2020 12:45-0400 Diastolic blood pressure 78 mm[Hg] Stv A Sarata Phone: 10-07-2020 12:45-0400 Heart rate 68 /min Stv A Sarata Phone: 10-07-2020 12:45-0400 SaO2% (BldA) [Mass fraction] 99 % Stv A Sarata Phone: 10-07-2020 12:45-0400 Systolic blood pressure 112 mm[Hg] Stv A Sarata Phone: 10-07-2020 10:45-0400 Respiratory rate 22 /min Stv A Sarata Phone: 10-07-2020 09:01-0400 Body height 170.2 cm [employer] Work Phone: 10-07-2020 09:01-0400 Body mass index (BMI) [Ratio] 36.65 kg/m2 [employer] Work Phone: 10-07-2020 09:01-0400 Body temperature 97.81 [degF] [employer] Work Phone: 10-07-2020 09:01-0400 Body weight 106.14 kg [employer] Work Phone: Encounters Encounter Date Encounter Type Care Provider Facility Start: 02-14-2025 End: 02-14-2025 Office outpatient visit 15 minutes [facility]abe English [facility] Comment on above: Pilonidal cyst (Primary Dx); Hidradenitis suppurativa Start: 02-14-2025 End: 02-14-2025 ambulatory BERNABE ENGLISH Not Available Start: 02-14-2025 End: 02-14-2025 Durga English MD [facility] Start: 02-14-2025 End: 02-14-2025 Durga English MD [facility] Start: 02-14-2025 End: 02-14-2025 ambulatory Gay Enciso COURTESY [employer]IVER-C Work Phone: [facility] Work Phone: Start: 02-14-2025 End: 02-14-2025 Patient encounter procedure Margie Arnett NP -[facility] Work Phone: Start: 02-08-2025 End: 02-09-2025 ambulatory LYNNE NI Facility:[facility] Start: 01-31-2025 End: 01-31-2025 Admission to same day surgery center Adolfo Kang MD -[facility] Work Phone: Start: 01-31-2025 End: 01-31-2025 ambulatory Gay Enciso [employer]ESY [employer]IVER-C Work Phone: [facility] Work Phone: Start: 01-31-2025 Non-patient / Non-visit Adolfo Kang MD -[facility] Work Phone: Start: 01-26-2025 End: 01-26-2025 ambulatory OLY PLASCENCIA Not Available Start: 01-24-2025 End: 01-24-2025 ambulatory Chair 2 Gabbi Work Phone: Hematology/Oncology Comment on above: Frequent infections (Primary Dx); Hypogammaglobulinemia (HCC); Bilateral leg weakness; Discoid lupus erythematosus; Elevated sed rate; Megaloblastic anemia due to vitamin B12 deficiency Start: 01-18-2025 End: 01-18-2025 Telephone encounter Lynne Ni MD Work Phone: Rheumatology Comment on above: Results Start: 01-17-2025 End: 01-17-2025 ambulatory Gay Enciso [employer]C Work Phone: [facility] Work Phone: Start: 01-17-2025 End: 01-17-2025 Patient encounter procedure Margie Arnett NP -[facility] Work Phone: Start: 01-11-2025 End: 01-12-2025 ambulatory Chair 16 Gabbi Work Phone: Hematology/Oncology Comment on above: Other systemic lupus erythematosus with other organ involvement (HCC) (Primary Dx); Elevated LFTs; Anemia of chronic disease; Elevated sed rate; Elevated C-reactive protein (CRP); Vitamin D deficiency; Vitamin B12 deficiency; Screening-pulmonary TB Start: 12-27-2024 End: 12-27-2024 ambulatory VERA NAJERA Facility:[facility] Start: 12-14-2024 End: 12-14-2024 [facility] Work Phone: Neurology Comment on above: CMN Start: 12-14-2024 End: 12-15-2024 ambulatory Chair 16 Gabbi Work Phone: Hematology/Oncology Comment on above: Other systemic lupus erythematosus with other organ involvement (HCC) (Primary Dx) Start: 12-12-2024 End: 12-12-2024 Patient encounter procedure Bandar Batista APRN -[facility] Work Phone: Start: 11-30-2024 End: 11-30-2024 Follow-up encounter Vaibhav Carvalho APRN.ROOM SERVICE ASSOCIATE Work Phone: Hematology/Oncology Comment on above: Results Start: 11-30-2024 End: 11-30-2024 ambulatory Gay Enciso [employer] Work Phone: [facility] Work Phone: Start: 11-30-2024 End: 11-30-2024 Patient encounter procedure Margie Arnett -[facility] Work Phone: Start: 11-29-2024 End: 11-29-2024 Office outpatient visit 25 minutes Vaibhav Carvalho APRN.ROOM SERVICE ASSOCIATE Work Phone: Hematology/Oncology Comment on above: Hypogammaglobulinemia (HCC) (Primary Dx) ; Vitamin B12 deficiency; Other iron deficiency anemia; Malaise and fatigue; Shortness of breath; Other specified disorders of breast; Pre-diabetes; Gastro-esophageal reflux disease without esophagitis Start: 11-29-2024 End: 11-30-2024 ambulatory Chair 3 Gabbi Work Phone: Hematology/Oncology Comment on above: Elevated sed rate (Primary Dx); Megaloblastic anemia due to vitamin B12 deficiency; Frequent infections; Hypogammaglobulinemia (HCC); Bilateral leg weakness; Discoid lupus erythematosus Start: 11-23-2024 End: 11-23-2024 Office outpatient visit 25 minutes Melissa WARREN Work Phone: [facility] Comment on above: Hidradenitis suppurativa (Primary Dx); Pain; Acne vulgaris Start: 11-23-2024 End: 11-23-2024 ambulatory MELISSA HUDDLESTON Not Available Start: 11-22-2024 ambulatory Janes Barfield Facility:[facility] Start: 11-22-2024 Registered Recurring Janes [place] [employer] Start: 11-21-2024 End: 11-21-2024 ambulatory Gay Enciso [employer]C Work Phone: [facility] Work Phone: Start: 11-21-2024 End: 11-21-2024 Patient encounter procedure Adolfo Kang MD [facility] Work Phone: Start: 11-21-2024 Non-patient / Non-visit Adolfo Kang MD [facility] Work Phone: Start: 11-20-2024 End: 11-20-2024 Telephone encounter Vaibhav Carvalho APRN.CNP Work Phone: Hematology/Oncology Comment on above: Lab Orders Start: 11-16-2024 End: 11-17-2024 ambulatory Chair 16 Gabbi Work Phone: Hematology/Oncology Comment on above: Other systemic lupus erythematosus with other organ involvement (HCC) (Primary Dx) Start: 11-15-2024 End: 11-20-2024 Telephone encounter Cesilia Whalen [facility] Work Phone: [facility] Start: 11-13-2024 End: 11-13-2024 Patient encounter procedure Adolfo Kang MD -[facility] Work Phone: Start: 10-31-2024 End: 10-31-2024 ambulatory Chair 2 Gabbi Work Phone: Hematology/Oncology Comment on above: Elevated sed rate (Primary Dx); Megaloblastic anemia due to vitamin B12 deficiency; Frequent infections; Hypogammaglobulinemia (HCC); Bilateral leg weakness; Discoid lupus erythematosus Start: 10-19-2024 End: 10-19-2024 ambulatory Chair 14 Gabbi Work Phone: Hematology/Oncology Comment on above: Other systemic lupus erythematosus with other organ involvement (HCC) (Primary Dx) Start: 10-17-2024 End: 10-17-2024 ambulatory MANUEL FERRIS Facility:[facility] Start: 10-07-2024 End: 10-07-2024 Patient encounter procedure [...] both feet; Long-term use of high-risk medication; manager english 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; Bilateral hand pain; Family history of Crohn's disease; 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; Bilateral wrist pain Start: 10-07-2024 End: 10-07-2024 Telemedicine consultation with patient Lynne Ni MD Work Phone: Rheumatology Start: 10-07-2024 End: 10-07-2024 ambulatory LYNNE NI Facility:[facility] Start: 10-06-2024 End: 10-06-2024 Telephone encounter Lynne [...] 09-20-2024 End: 09-20-2024 Specialty Pharmacy Aidee Quintanilla RPh [facility] Comment on above: SPP Inflammatory Conditions - Medication Refill (Benlysta) Start: 09-19-2024 End: 09-19-2024 ambulatory MANUEL FERRIS Facility:[facility] Start: 09-19-2024 End: 09-19-2024 Patient encounter procedure Deborah Arroyo [facility] Work Phone: [facility] Comment on above: Fibromyalgia (Primary Dx); Family history of disease of aorta; Family history of cancer Generalized articula r hypermobility (Primary Dx); Chronic pain syndrome; Discoid lupus erythematosus; Family history of pneumothorax in son; Family history of cancer; Family history of mild aortic dilation in daughter Start: 09-19-2024 End: 09-19-2024 ambulatory LYNNE NI Facility:[facility] Start: 09-18-2024 End: 09-18-2024 Telephone encounter [facility] Comment on above: Future Appointment Start: 09-18-2024 End: 09-18-2024 ambulatory Chair 19 Gabbi Work Phone: Hematology/Oncology Comment on above: Other systemic lupus erythematosus with other organ involvement (HCC) (Primary Dx) Refill Request Start: 09-07-2024 End: 09-07-2024 Follow-up encounter Vaibhav Carvalho APRN.CNP Work Phone: Hematology/Oncology Comment on above: Results Start: 09-06-2024 End: 09-06-2024 Patient encounter procedure Adolfo Kang MD -[facility] Work Phone: Start: 09-06-2024 End: 09-12-2024 Telephone encounter Basia Samuel RN Hematology/Oncology Comment on above: Medication Preauthorization; Appointment Start: 09-06-2024 End: 09-06-2024 ambulatory Chair 3 Gabbi Work Phone: Hematology/Oncology Comment on above: Frequent infections (Primary Dx); Hypogammaglobulinemia (HCC); Bilateral leg weakness; Discoid lupus erythematosus; Elevated sed rate; Megaloblastic anemia due to vitamin B12 deficiency Start: 09-06-2024 End: 09-06-2024 Office outpatient visit 25 minutes Vaibhav Carvalho [employer]EL[employer] SERVICE ASSOCIATE Work Phone: Hematology/Oncology Comment on above: Hypogammaglobulinemia (HCC) (Primary Dx) ; Vitamin B12 deficiency; Other iron deficiency anemia; Megaloblastic anemia due to vitamin B12 deficiency Start: 09-06-2024 End: 09-06-2024 ambulatory VAIBHAV CARVALHO Facility:[facility] Start: 09-04-2024 End: 09-04-2024 Office outpatient visit 25 minutes Gordo Barfield MD [facility] Comment on above: Thyroid nodule (CMS/HCC) (Primary Dx); LPRD (laryngopharyngeal reflux disease) Start: 09-04-2024 End: 09-04-2024 ambulatory GORDO BARFIELD Not Available Start: 09-04-2024 End: 09-04-2024 Bamboo flowsheet Gordo Barfield MD Work Phone: [facility] Start: 09-04-2024 End: 09-04-2024 Bamboo flowsheet Gordo Barfield MD [facility] Start: 09-01-2024 End: 09-02-2024 Refill Lynne Ni MD Work Phone: Rheumatology Comment on above: Refill Request Start: 08-29-2024 End: 08-29-2024 ambulatory MANUEL M CHEYENNECristina Facility:[facility] Start: 08-28-2024 End: 08-28-2024 Telephone encounter Vaibhav Carvalho [employer] CRM DEVELOPER.ROOM SERVICE ASSOCIATE Work Phone: Hematology/Oncology Comment on above: Lab Orders Start: 08-24-2024 End: 08-24-2024 Clinisync Result Encounter Gordo Barfield MD Work Phone: [facility] External Department Unsolicited Start: 08-24-2024 End: 08-24-2024 Clinisync Result Encounter Gordo Barfield MD Work Phone: [facility] External Department Unsolicited Start: 08-22-2024 End: 08-22-2024 ambulatory Gay Enciso COURTESY CAR DRIVER-C Work Phone: [facility] Work Phone: Start: 08-22-2024 End: 08-22-2024 Patient encounter procedure Gay Enciso COURTESY CAR DRIVER-C Work Phone: [facility] Work Phone: Start: 08-17-2024 End: 08-17-2024 Specialty Pharmacy Aidee Quintanilla [facility] Comment on [...] Request Start: 07-31-2024 End: 07-31-2024 ambulatory Gay Enciso COURTESY CAR DRIVER-C Work Phone: [facility] Work Phone: Start: 07-31-2024 End: 07-31-2024 Patient encounter procedure Gay Enciso COURTESY CAR DRIVER-C Work Phone: [facility] Physician [facility] Work Phone: Start: 07-26-2024 End: 07-26-2024 Office outpatient visit 25 minutes Lois Holm MD Work Phone: [facility] Comment on above: Sinus tachycardia (Primary Dx); Shortness of breath; Paroxysmal supraventricular tachycardia (CMS-HCC); Essential hypertension; Obstructive sleep apnea syndrome; Morbid obesity (Multi); Current smoker Start: 07-26-2024 End: 07-26-2024 ambulatory [facility] Ambulatory Start: 07-25-2024 End: 07-25-2024 Bamboo flowsheet Bernabe English MD Work Phone: [facility] Start: 07-25-2024 End: 07-25-2024 Bamboo flowsheet Bernabe English MD Work Phone: [facility] S[facility] DERM Start: 07-25-2024 End: 07-25-2024 Office outpatient visit 25 minutes Bernabe English MD Work Phone: [facility] D[facility] Comment on above: Hidradenitis suppurativa (Primary Dx); Other seborrheic dermatitis; Lupus erythematosus tumidus (CMS/HCC); Rash and other nonspecific skin eruption; Capillary angioma; Neoplasm of uncertain behavior of skin Start: 07-25-2024 End: 07-25-2024 Specialty Pharmacy Aidee Quintanilla [facility] Comment on above: SPP Inflammatory Conditions - Medication Refill (Benlysta) Start: 07-20-2024 End: 07-20-2024 Telemedicine consultation with patient Alhaji Head DO Work Phone: Infectious Disease Start: 07-20-2024 End: 07-20-2024 ambulatory Alhaji Head DO Work Phone: Infectious Disease Comment on above: Nipple discharge (Primary Dx); Other systemic lupus erythematosus with other organ involvement ([facility]); On prednisone therapy; Long-term use of Plaquenil Start: 07-19-2024 Non-patient / Non-visit Gay Enciso NP-C Work Phone: [facility] Physician Group-[facility] Pain Mgmt Work Phone: Start: 07-19-2024 End: 07-19-2024 Admission to same day surgery center Gay Enciso COURTESY CAR DRIVER-C Work Phone: [facility] Work Phone: Start: 07-19-2024 End: 07-19-2024 ambulatory Gay Enciso NP-C Work Phone: [facility] Work Phone: Start: 07-12-2024 End: 07-12-2024 ambulatory MARKY BARNES Facility:[facility] Start: 07-12-2024 End: 07-12-2024 Patient encounter procedure Marky Barnes PAJuliusC Work Phone: Otolaryngology Comment on above: LPRD (laryngopharyngeal reflux disease); Dry mouth; Current smoker; Abnormal mouth sensation Start: 07-11-2024 End: 07-12-2024 ambulatory Chair 3 Gabbi Work Phone: Hematology/Oncology Comment on above: Elevated sed rate (Primary Dx); Megaloblastic anemia due to vitamin B12 deficiency; Frequent infections; Hypogammaglobulinemia (HCC); Bilateral leg weakness; Discoid lupus erythematosus Start: 07-10-2024 End: 07-10-2024 ambulatory [facility] Work Phone: Start: 07-10-2024 End: 07-10-2024 Patient encounter procedure [facility] ysician Group-[facility] Pain Mgmt Work Phone: Start: 07-09-2024 End: 07-10-2024 Telephone encounter Lynne Ni MD Work Phone: Rheumatology Comment on above: Results Start: 06-30-2024 End: 06-30-2024 ambulatory LYNNE NI Facility:[facility] Start: 06-29-2024 End: 06-29-2024 Specialty Pharmacy Aidee Quintanilla [facility] Comment on above: SPP Inflammatory Conditions - Medication Refill (Benlysta) Start: 06-20-2024 End: 06-23-2024 ambulatory [facility] Comment on above: Iron Infusions Start: 06-20-2024 End: 06-21-2024 E-mail encounter from caregiver [facility] Savannah KEN Start: 06-20-2024 End: 06-23-2024 Patient encounter procedure Lynne Ni MD Work Phone: Rheumatology Comment on above: Flair Start: 06-16-2024 End: 06-20-2024 Telephone encounter Vaibhav Carvalho APRN.CNP Work Phone: Hematology/Oncology Start: 06-15-2024 End: 06-15-2024 Telephone encounter Oly WARREN Work Phone: [facility] OB Start: 06-14-2024 End: 06-14-2024 Nursing evaluation of patient and report Breath Test Silverio Cp Nsg Wl Work Phone: [facility] Comment on above: Diarrhea, unspecified type (Primary Dx); Abdominal pressure Start: 06-13-2024 End: 06-13-2024 Office outpatient visit 25 minutes Vaibhav Carvalho APRN.CNP Work Phone: Hematology/Oncology Comment [...] 06-12-2024 End: 06-13-2024 Telephone encounter Vaibhav Carvalho APRN.ROOM SERVICE ASSOCIATE Work Phone: Hematology/Oncology Comment on above: Lab Orders Start: 06-06-2024 End: 06-06-2024 Bamboo flowsheet Oly WARREN Work Phone: [facility] Start: 06-06-2024 End: 06-10-2024 Bamboo flowsheet Oly WARREN Work Phone: [facility] Start: 06-06-2024 End: 06-10-2024 Clinisync Result Encounter Oly WARREN Work Phone: [facility] External Department Unsolicited Start: 06-06-2024 End: 06-06-2024 Specialty Pharmacy Aidee Quintanilla [facility] Comment on above: SPP Inflammatory [...] 05-15-2024 End: 05-15-[address] [facility] Hematology/Oncology Start: 05-12-2024 End: 05-12-2024 Specialty Pharmacy Aidee Quintanilla [facility] Comment on above: SPP Inflammatory Conditions - Medication Refill (Benlysta) Start: 04-28-2024 End: 04-28-2024 Orders Only Pepper Cotter LPN [facility] Comment on above: Peripheral vascular disease, unspecified (CMS-HCC) (Primary Dx); Cold extremities; Systemic lupus erythematosus (CMS-HCC) Start: 04-26-2024 End: 04-26-2024 ambulatory VERA ABHYANKAR Facility:[facility] Start: 04-26-2024 End: 04-26-2024 Nursing evaluation of patient and report Cele Marshall Work Phone: Hematology/Oncology Comment on above: Elevated sed rate (Primary Dx); Megaloblastic anemia due to vitamin B12 deficiency Start: 04-14-2024 End: 10-05-2024 Telephone encounter [facility] Work Phone: [facility] Comment on above: Patient Update; Appointment Start: 04-11-2024 End: 04-11-2024 Specialty Pharmacy Aidee Quintanilla [facility] Comment on above: SPP Inflammatory Conditions - Medication Refill (Benlysta) Start: 04-10-2024 End: 04-10-2024 Bamboo flowsheet Gordo Barfield MD [facility] Start: 04-10-2024 End: 04-10-2024 Bamboo flowsheet Gordo Barfield MD Work Phone: [facility] SELVIN SANTO Start: 04-10-2024 End: 04-10-2024 Telephone encounter Vera Najera MD Work Phone: Cancer [facility] Comment on above: Appointment Start: 04-10-2024 End: 04-10-2024 Office outpatient visit 25 minutes Gordo Barfield MD Work Phone: [facility] Comment on above: LPRD (laryngopharyngeal reflux disease) (Primary Dx); Acute otalgia, right Start: 04-10-2024 End: 04-10-2024 ambulatory GORDO BARFIELD Not Available Start: 04-07-2024 End: 04-07-[address] [facility] Hematology/Oncology Start: 04-06-2024 End: 04-06-2024 Clinisync Result Encounter lOy WARREN Work Phone: [facility] External Department Unsolicited Start: 04-06-2024 End: 04-06-2024 Clinisync Result Encounter Oly WARREN Work Phone: [facility] External Department Unsolicited Start: 04-06-2024 End: 04-06-2024 Office outpatient new 30 minutes Hayden Arciniega MD Work Phone: [facility] Vascular Surgery Comment on above: Systemic lupus [...] 03-30-2024 ambulatory Maico Douglas MD Work Phone: [facility] Start: 03-27-2024 End: 03-28-2024 ambulatory Vera Najera MD Work Phone: Hematology/Oncology Comment on above: 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); High total serum IgM; JOSE RAFAEL (obstructive sleep apnea); Elevated sed rate; Hypogammaglobulinemia (HCC); Frequent infections Start: 03-27-2024 End: 03-28-2024 Telemedicine consultation with patient Vera Najera MD Work Phone: Hematology/Oncology Start: 03-27-2024 End: 03-28-2024 ambulatory VERA NAJERA Facility:[facility] Start: 03-23-2024 End: 03-23-2024 ambulatory OLY PLASCENCIA Not Available Start: 03-23-2024 End: 03-23-2024 Office outpatient visit 15 minutes Oly WARREN Work Phone: [facility] OB Comment on above: Abnormal uterine bleeding (AUB); Menorrhagia with regular cycle Start: 03-23-2024 End: 03-23-2024 Bamboo flowsheet Oly WARREN Work Phone: [facility] Start: 03-23-2024 End: 03-23-2024 Bamboo flowsheet Oly WARREN Work Phone: [facility] Start: 03-23-2024 End: 03-23-2024 Nursing evaluation of patient and report Ma Nurse Dre Marshall Work Phone: Hematology/Oncology Comment on above: Elevated sed rate (Primary Dx); Megaloblastic anemia due to vitamin B12 deficiency Start: 03-23-2024 End: 03-23-2024 ambulatory MANUEL FERRIS Facility:[facility] Start: 03-20-2024 End: 03-30-2024 Telephone encounter Akiko Cooper MD Work Phone: [facility] Start: 03-18-2024 End: 03-18-2024 ambulatory LYNNE NI Facility:[facility] Start: 03-18-2024 End: 03-18-2024 Patient encounter procedure [...] both feet; Long-term use of high-risk medication; shelter 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; Bilateral hand [...] Not Available Start: 03-16-2024 End: 03-16-2024 ambulatory COURTESY CAR DRIVER-C Gay Enciso Work Phone: [facility] Work Phone: Start: 03-16-2024 End: 03-16-2024 Patient encounter procedure COURTESY CAR DRIVER-C Gay Enciso Work Phone: [facility] Phys[facility] Gastroenterology Work Phone: Start: 03-13-2024 End: 03-13-2024 Specialty Pharmacy Aidee Quintanilla [facility] Comment on above: SPP Inflammatory Conditions - Medication Refill (Benlysta - NCA 09/2024) Start: 03-08-2024 End: 03-08-2024 ambulatory EHAB [facility] Start: 03-07-2024 End: 03-08-2024 Chart abstracting [facility] Work Phone: Neurology Comment on above: cmn Start: 03-02-2024 End: 03-02-2024 Refill Zita Cuellar COURTESY CAR DRIVER Work Phone: [facility] NE[facility] 210 Comment on above: Lumbosacral radiculopathy at L5; Degenerative disc disease, lumbar; Cervical radiculopathy at C5 Start: 02-28-2024 End: 02-28-2024 ambulatory COURTESY CAR DRIVER-C Gay Enciso Work Phone: [facility] Work Phone: Start: 02-28-2024 End: 02-28-2024 Patient encounter procedure COURTESY CAR DRIVER-C Gay Enciso Work Phone: [facility] Physician Group-[facility] Work Phone: Start: 02-22-2024 End: 02-22-2024 Telephone encounter Oly Elam [facility] Work Phone: [facility] Comment on above: Power Plant Technician - 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 scheduling ) Start: 02-21-2024 End: 02-21-2024 Nursing evaluation of patient and report Ma Nurse Dre Marshall Work Phone: Hematology/Oncology Comment on above: Elevated sed rate (Primary Dx); Megaloblastic anemia due to vitamin B12 deficiency Start: 02-21-2024 End: 02-21-2024 ambulatory MANUEL Lynne QUINNCristina Facility:[facility] Start: 02-18-2024 End: 02-18-2024 Telephone encounter Lynne Ni MD Work Phone: Rheumatology Start: 02-16-2024 Non-patient / Non-visit COURTESY CAR DRIVER-C Gay Enciso Work Phone: [facility] Physician Group-[facility] Work Phone: Start: 02-16-2024 End: 02-16-2024 Admission to same day surgery center COURTESY CAR DRIVER-C Gay Enciso Work Phone: [facility] Work Phone: Start: 02-16-2024 End: 02-16-2024 ambulatory COURTESY CAR DRIVER-C Gay Enciso Work Phone: [facility] Work Phone: Start: 02-15-2024 End: 02-15-2024 Telephone encounter Lexus Heck APRN.ROOM SERVICE ASSOCIATE Work Phone: Neurology Comment on above: Orders (PAP RX.) Start: 02-14-2024 End: 02-14-2024 Follow-up encounter Aidee Quintanilla [facility] Comment on above: SPP Inflammatory Conditions - Follow-up (Benlysta); Insurance Authorization ([place] Renew[place] Submitted) Start: 02-14-2024 End: 02-14-2024 ambulatory Lexus Heck APRN.ROOM SERVICE ASSOCIATE Work Phone: Neurology Comment on above: JOSE RAFAEL (obstructive sleep apnea) (Primary D x); Somnolence, daytime SPP Inflammatory Con ditions - Medication Refill (Benlysta - NCA 09/2024) Start: 02-14-2024 End: 02-14-2024 Telemedicine consultation with patient Lexus Heck APRN.ROOM SERVICE ASSOCIATE Work Phone: Neurology Start: 02-09-2024 End: 02-09-2024 Bamboo flowsheet Zita Cuellar COURTESY CAR DRIVER Work Phone: [facility] NEUROLOG[facility] Start: 02-09-2024 End: 02-09-2024 Bamboo flowsheet Zita Cuellar COURTESY CAR DRIVER Work Phone: [facility] NEUR[facility] Start: 02-09-2024 End: 02-09-2024 Phys/qhp telephone evaluation 21-30 min Zita Cuellar COURTESY CAR DRIVER Work Phone: [facility] NEURO 210 Comment on above: Lumbosacral radiculopathy at L5 (Primary Dx); Degenerative disc disease, lumbar; Cervical radiculopathy at C5 Start: 02-07-2024 End: 02-07-2024 Refill Zita Cuellar COURTESY CAR DRIVER Work Phone: [facility] NEURO 210 Comment on above: Autoimmune disease (CMS/HCC); Fibromyalgia; Numbness Start: 01-28-2024 End: 01-31-2024 ambulatory Alhaji Head DO Work Phone: [facility] Work Phone: Comment on above: Blood work Start: 01-28-2024 End: 01-28-2024 Patient encounter procedure [facility] ysician Group-[facility] Amelia Work Phone: Start: [...] anemia due to vitamin B12 deficiency Start: 01-20-2024 End: 01-20-2024 Refill Kade Richardson MD Work Phone: [facility] NE[facility] 210 Comment on above: Degenerative disc disease, lumbar (Prima ry Dx); Lumbosacral radiculopathy at L5 Start: 01-18-2024 End: 01-19-2024 Specialty Pharmacy Aidee Quintanilla [facility] Comment on above: SPP Inflammatory Conditions - Medication Refill (Benlysta) Start: 01-12-2024 End: 01-12-2024 ambulatory Lynne Ni MD Work Phone: Rheumatology Start: 01-12-2024 End: 01-12-2024 Patient encounter procedure Lynne Ni MD Work Phone: Rheumatology Comment on above: Flair Start: 12-30-2023 Telephone encounter Lynne Ni MD Work Phone: Rheumatology Comment on above: Results Start: 12-27-2023 Telephone encounter Neda Hill PA-C Work Phone: Hematology/Oncology Comment on above: Results Start: 12-27-2023 End: 12-27-2023 Nursing evaluation of patient and report Cele Marshall Work Phone: Hematology/Oncology Comment on above: Elevated sed rate (Primary Dx); Megaloblastic anemia due to vitamin B12 deficiency Start: 12-27-2023 End: 12-27-2023 Office outpatient visit 15 minutes Neda Hill PA-C Work Phone: Hematology/Oncology Comment on above: 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); Elevated sed rate; Obstructive sleep apnea syndrome Start: 12-24-2023 End: 12-24-2023 ambulatory [facility] Ambulatory Start: 12-16-2023 End: 12-16-2023 ambulatory [facility] Work Phone: Start: 12-16-2023 End: 12-16-2023 Patient encounter procedure [facility] ysician Group-[facility] Infectious Disease Work Phone: Start: 12-13-2023 Specialty Pharmacy Aidee Quintanilla [facility] Comment on above: SPP Inflammatory Conditions - Medication Refill (Benlysta - NCA 09/2024) Start: 11-29-2023 End: 11-29-2023 Nursing evaluation of patient and report In Nurse Dre Marshall Work Phone: Hematology/Oncology Comment on above: Elevated sed rate (Primary Dx); Megaloblastic anemia due to vitamin B12 deficiency Start: 11-25-2023 ambulatory Vera Najera MD Work Phone: Hematology/Oncology Comment on above: Folic acid Start: 11-15-2023 Specialty Pharmacy Aidee Quintanilla [facility] Comment on above: SPP Inflammatory Conditions - Medication Refill (Benlysta - NCA 09/2024) Start: 11-11-2023 Refill Lynne Ni MD Work Phone: Rheumatology Comment on above: Refill Request Start: 11-04-2023 End: 11-04-2023 ambulatory [facility] Work Phone: Start: 11-04-2023 End: 11-04-2023 Patient encounter procedure [facility] ysician Group-[facility] Infect[facility] Disease Work Phone: Start: 10-27-2023 End: 10-27-2023 Nursing evaluation of patient and report Cele Marshall Work Phone: Hematology/Oncology Comment on above: Elevated sed rate (Primary Dx); Megaloblastic anemia due to vitamin B12 deficiency Start: 10-27-2023 ambulatory Lynne Ni MD Work Phone: Rheumatology Start: 10-27-2023 Patient encounter procedure Lynne Ni MD Work Phone: Rheumatology Comment on above: Cdiff Start: 10-20-2023 End: 10-20-2023 ambulatory [facility] Work Phone: Start: 10-20-2023 End: 10-20-2023 Patient encounter procedure [facility] ysician Group-[facility] Infect[facility] Disease Work Phone: Start: 10-12-2023 Specialty Pharmacy Aidee Quintanilla [facility] Comment on above: SPP Inflammatory [...] of Plaquenil; Long-term use of high-risk medication; manager english 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; Raynaud's disease [...] Start: 09-22-2023 End: 09-22-2023 Patient encounter procedure [facility] ysician Group-[facility] Gastroenterology Work Phone: Start: 09-13-2023 Specialty Pharmacy Aidee [facility] Comment on above: SPP Inflammatory [...] with patient Vera Najera MD Work Phone: [facility] Start: 09-04-2023 Telephone encounter Lynne Ni MD Work Phone: Rheumatology Comment on above: Results Start: 08-31-2023 End: 08-31-2023 Nursing evaluation of patient and report Cele Marshall Work Phone: Hematology/Oncology Comment on above: 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); Elevated sed rate Start: 08-12-2023 Specialty Pharmacy Aideeradu Quintanilla [facility] Comment on above: SPP Inflammatory Conditions - Medication Refill (Benlysta ) Start: 08-05-2023 End: 08-05-2023 Nursing evaluation of patient and report Cele Marshall Work Phone: Hematology/Oncology Comment on above: 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); Elevated sed rate Start: 07-28-2023 Non-patient / Non-visit [facility] Gianna anne marie Group-[facility] Gastroenterology Work Phone: Start: 07-13-2023 ambulatory Aidee Quintanilla [facility] MAIN Start: 07-13-2023 End: 07-13-2023 Nursing evaluation of patient and report Cele Marshall Work Phone: Hematology/Oncology Comment on above: 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); Elevated sed rate SPP Inflammatory Con ditions - Medication Refill (Benlysta ) Start: 07-13-2023 End: 07-13-2023 Office outpatient new 45 minutes Lois Holm MD Work Phone: [facility] Comment on above: Shortness of breath (Primary Dx); Paroxysmal supraventricular tachycardia; PAC (premature atrial contraction); Current smoker; Systemic lupus erythematosus, unspecified SLE type, unspecified organ involvement status (CMS/HCC); Palpitations; Obstructive sleep apnea syndrome; Morbid obesity (CMS/HCC); Bilateral lower extremity edema Start: 07-06-2023 End: 07-06-2023 Office outpatient visit 25 minutes Kade Richardson MD Work Phone: [facility] NE[facility] 210 Comment on above: Autoimmune disease (CMS/HCC) (Primary Dx ); Autonomic dysfunction; Lumbosacral radiculopathy; Bilateral leg weakness Start: 07-05-2023 Chart abstracting Kade Richardson MD Work Phone: [facility] NE[facility] 210 Start: 06-09-2023 End: 06-09-2023 Office outpatient new 60 minutes Michelle Jasmine APRN-ROOM SERVICE ASSOCIATE Work Phone: [facility] Comment on above: Irregular heart rate (Primary [...] Phentermine Start: 04-22-2023 Telephone encounter Enma Hamm commercial pest control representative/Oncology Comment on above: Results Start: 04-16-2023 End: [...] evaluation of patient and report Nurse Mora [facility] Nickie Work Phone: Rheumatology Comment on [...] deficiency; Elevated sed rate; Bilateral wrist pain; manager english 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; Steroid-induced osteoporosis; 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 Start: 02-04-2023 Patient encounter procedure Clinton Schroeder (Pharmacist) [facility] Specialty Pharmacy Comment on above: SPP Inflammatory Conditions - Treatment Referral (Benlysta); Insurance Authorization ([place] submission pending) Start: 02-04-2023 Telephone encounter Lynne Ni MD Work Phone: Rheumatology Comment on above: Appointment; Orders; Medication Authoriz ation Start: 02-04-2023 End: 02-04-2023 Telemedicine consultation with patient Lynne Ni MD Work Phone: [facility] Start: 01-28-2023 Refill Christie Phan MD Work Phone: Integrated Medicine Comment on above: Refill Request Start: 01-24-2023 Telephone encounter Lynne Ni MD Work Phone: Rheumatology Comment on above: Results Start: 01-22-2023 End: 01-22-2023 Nursing evaluation of patient and report In Nurse Dre Marshall Work Phone: Hematology/Oncology Comment on above: 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); Elevated sed rate Start: 01-17-2023 Orders Only Vera Najera MD Work Phone: Hematology/Oncology Comment on above: 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); High total serum IgM; Elevated sed rate Start: 01-01-2023 End: 01-01-2023 ambulatory Mitsy Nelson MD Work Phone: Allergy Comment on above: High total serum IgM (Primary Dx); Low serum IgG for age; Current smoker Start: 01-01-2023 End: 01-01-2023 Telemedicine consultation with patient Misty Neslon MD Work Phone: [facility] Start: 12-24-2022 Refill Christie Phan MD Work Phone: [facility] Medicine Comment on above: Refill Request Start: 12-18-2022 Telephone encounter Lidia Argueta RN Work Phone: Hematology/Oncology Comment on above: Care Coordination (appointment) Start: 12-17-2022 End: 12-18-2022 ambulatory Rebekah Rojas [employer] DEVELOPER.ROOM SERVICE ASSOCIATE Work Phone: Hematology/Oncology Comment on above: 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); Chronic fatigue and malaise Start: 12-17-2022 End: 12-18-2022 Telemedicine consultation with patient Rebekah Bob [employer] CRM DEVELOPER.ROOM SERVICE ASSOCIATE Work Phone: [place] Start: 12-16-2022 Telephone encounter [...] syndrome Start: 09-24-2022 End: 09-25-2022 ambulatory OLY PARMJIT . Facility:[facility]1 Start: 09-24-2022 End: 09-24-2022 Nursing evaluation of patient and report Cele Marshall Work Phone: Hematology/Oncology Comment on above: 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); Elevated sed rate Start: 09-10-2022 End: 09-10-[address] MANUEL FERRIS . Facility: Start: 09-08-2022 Telephone encounter Angelia [place] [facility] Delivery - Compliance Comment on above: Compliance [...] Start: 08-27-2022 End: 08-27-2022 ambulatory Rebekah Rojas APRN.ROOM SERVICE ASSOCIATE Work Phone: Hematology/Oncology Comment on above: 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); Elevated sed rate; High total serum IgM; Chronic fatigue and malaise; JOSE RAFAEL (obstructive sleep apnea) Start: 08-27-2022 End: 08-27-2022 Patient encounter procedure Rebekah Bob [employer] CRM DEVELOPER.ROOM SERVICE ASSOCIATE Work Phone: [place] Start: 08-19-2022 Telephone encounter Lynne Ni MD Work Phone: Rheumatology Comment on above: Results Start: 08-15-2022 ambulatory Lynne Ni MD Work Phone: Rheumatology Comment on above: update Start: 08-10-2022 Refill Christie Phan MD Work Phone: [facility] Comment on above: Refill Request Start: 07-27-2022 End: 07-27-2022 ambulatory Lexus Heck [employer] CRM DEVELOPER.ROOM SERVICE ASSOCIATE Work Phone: Neurology Comment on above: JOSE RAFAEL (obstructive sleep apnea) (Primary D x) Start: 07-27-2022 End: 07-27-2022 Telemedicine consultation with patient Lexus Heck APRN.ROOM SERVICE ASSOCIATE Work Phone: [facility] Start: 07-24-2022 ambulatory Lynne Ni MD Work Phone: Rheumatology Comment on above: Blood work Start: 07-24-2022 Telephone encounter Vera Najera MD Work Phone: Hematology/Oncology Comment on above: Orders (Lab Orders Before Appoint ment) Start: 07-21-2022 ambulatory Lawanda Miranda MD Work Phone: [facility] Start: 07-21-2022 Patient encounter procedure [...] ([place]) Start: 04-24-2022 Telephone encounter Ny Beebe MD Work Phone: [facility] Comment on above: Future Appointment (Scheduling questions /concerns) Start: 04-22-2022 Telephone encounter Eliza Licea Research Coordinator [facility] Comment on above: 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 Facility:[facility] Start: 03-31-2022 Refill Christie Phan MD Work Phone: [facility] Comment on above: Refill Request Start: 03-30-2022 ambulatory Misty Nelson MD Work Phone: Allergy Comment on above: Pneumovax Start: 03-30-2022 E-mail encounter from caregiver Misty Nelson MD Work Phone: [facility] Start: 03-26-2022 Telephone encounter Misty Nelson MD Work Phone: Allergy Comment on above: Pneumovax Start: 03-21-2022 End: 03-21-[address] EL ROSSI . Facility:[facility] Start: 03-18-2022 End: 03-18-2022 ambulatory Vera Najera MD Work Phone: Hematology/Oncology Comment on above: 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); High total serum IgM A1c Start: 03-18-2022 E-mail encounter from caregiver Christie Phan MD Work Phone: [facility] [...] Start: 03-10-2022 E-mail encounter from caregiver Alhaji Head DO Work Phone: [facility] Start: 03-10-2022 End: 03-10-2022 Telemedicine consultation with patient Misty Nelson MD Work Phone: [place] Start: 03-09-2022 End: 03-10-2022 ambulatory GAY ENCISO Facility: Start: 03-09-2022 End: 03-09-2022 Office consultation new/estab patient 80 min Christie Phan MD Work Phone: [facility] Comment on above: Obesity, [...] Vera Najera MD Work Phone: [place] Start: 03-02-2022 Chart abstracting Vera Najera MD [...] with patient Alhaji Head DO Work Phone: [facility] Start: 02-14-2022 End: 02-15-[address] MANUEL FERRIS . Facility:[facility]1 Start: 11-26-2021 End: 11-26-2021 ambulatory Mirela Kelsey Other [employer] Other Start: 11-26-2021 Office outpatient visit 25 minutes Mirela Kelsey [facility] Infectious Disease Start: 11-17-2021 End: 11-18-2021 ambulatory [...] 10-15-2021 End: 10-15-2021 ambulatory Mirela Kelsey Other [employer] Other Start: 10-15-2021 Office outpatient visit 25 minutes Mirela Kelsey [facility] Start: 10-03-2021 End: [address] MIRELA KELSEY Facility:[facility]1 Start: 09-18-2021 End: 09-18-2021 ambulatory Mirela Kelsey Other [employer] Other Start: 09-18-2021 Telephone encounter Mirela LOPEZ Infectious Disease Start: 09-11-2021 End: 09-11-2021 ambulatory Mirela Kelsey Other [employer] Other Start: 09-11-2021 Office outpatient new 45 minutes Mirela Kelsey [facility] Start: 10-07-2020 End: 10-08-2020 ambulatory AMIVY HOLLEY [facility] Start: 10-07-2020 End: 10-07-2020 Subsequent hospital visit by physician Stv [employer] And Sh[employer] Laborer Rm A [facility] [employer] Comment on above: Arrived Start: 09-14-2018 End: 09-17-2018 Patient encounter procedure [facility] Procedures Date Procedure Procedure Detail Performing Clinician Start: 01-31-2025 DH Nerve Radio Frequ ency (Bilateral) Gay Enciso COURTESY CAR DRIVER-C Work Phone: Start: 01-11-2025 Blood count complete automated Lynne Ni MD Work Phone: Start: 10-02-2024 Blood count complete automated Lynne Ni MD Work Phone: Start: 10-02-2024 C-reactive protein Christie Ni MD Work Phone: Start: 09-06-2024 Assay of gammaglobul in iga igd igg igm each Vaibhav Cravalho [employer] CRM DEVELOPER.ROOM SERVICE ASSOCIATE Work Phone: Start: 08-24-2024 Us soft tissue head & neck real time imge docm Gordo Barfield MD Work Phone: Start: 07-19-2024 Injection of local anesthetic into sacroiliac joint Gay Enciso COURTESY CAR DRIVER-C Work Phone: Start: 06-13-2024 Blood count complete auto&auto difrntl wbc Vaibhav Carvalho [employer] CRM DEVELOPER.ROOM SERVICE ASSOCIATE Work Phone: Start: 06-06-2024 IGP,APTIMA HPV,AGE GDLN [...] Injection of local anesthetic into sacroiliac joint COURTESY CAR DRIVER-C Gay Enciso Work Phone: Start: 07-13-2023 Ecg routine ecg w/le ast 12 lds w/i&r Lois Holm MD Work Phone: Start: 06-09-2023 Ecg routine ecg w/le ast 12 lds w/i&r Michelle London Mitali [employer] CRM DEVELOPER-ROOM SERVICE ASSOCIATE Work Phone: Start: 09-10-2022 Microscopic observat ion [...] 09-11-2027 Screening for malignant neoplasm of cervix [facility] Start: 06-06-2027 Screening for malignant neoplasm of cervix [facility] Start: 09-10-2025 Screening for malignant neoplasm of cervix Pap Smear [facility] Start: 07-26-2025 End: 07-26-2025 Patient encounter procedure 07/26/2025 11:00 AM EST Office Visit [facility] [address] [place] [id number] Lois Holm MD [address] [place] [address] [facility] Start: 07-25-2025 End: 07-25-2025 Patient encounter procedure [facility] Start: 04-20-2025 End: 01-18-2026 25-hydroxyvitamin D3 [Mass/volume] in Serum or Plasma VITAMIN D 25 HYDROXY Lab Routine Vitamin D deficiency Expected: 04/20/2025 (Approximate), Expires: 01/18/2026 [facility] Comment on above: Expected: 04/20/2025 (Approximate), Expi res: 01/18/2026 Start: 04-20-2025 End: 01-18-2026 C reactive protein [Mass/volume] in Serum or Plasma C-REACTIVE PROTEIN Lab Routine Elevated C-reactive protein (CRP) Elevated sed rate Expected: 04/20/2025 (Approximate), Expires: 01/18/2026 [facility] Comment on above: Expected: 04/20/2025 (Approximate), Expi res: 01/18/2026 Start: 04-20-2025 End: 01-18-2026 CBC panel - Blood by Automated count COMPLETE BLOOD COUNT Lab Routine Anemia of chronic disease Expected: 04/20/2025 (Approximate), Expires: 01/18/2026 [facility] Comment on above: Expected: 04/20/2025 (Approximate), Expi res: 01/18/2026 Start: 04-20-2025 End: 01-18-2026 Comprehensive metabolic 2000 panel - Serum or Plasma COMPREHENSIVE METABOLIC PANEL Lab Routine Elevated LFTs Expected: 04/20/2025 (Approximate), Expires: 01/18/2026 [facility] Work Phone: Comment on above: Expected: 04/20/2025 (Approximate), Expi res: 01/18/2026 Start: 04-20-2025 End: 01-18-2026 Erythrocyte sedimentation rate SEDIMENTATION RATE, WESTERGREN Lab Routine Elevated C-reactive protein (CRP) Elevated sed rate Expected: 04/20/2025 (Approximate), Expires: 01/18/2026 [facility] Comment on above: Expected: 04/20/2025 (Approximate), Expi res: 01/18/2026 Start: 04-07-2025 Screening for malignant neoplasm of breast Mammogram [facility] Start: 04-06-2025 Adult BMI Screening Adult BMI Screening [facility] Start: 04-06-2025 Screening for malignant neoplasm of breast Mammogram [facility] Start: 04-06-2025 Tobacco Screening Tobacco Screening [facility] Start: 03-19-2025 End: 03-19-2025 Patient encounter procedure [facility] Start: 03-17-2025 Diabetes mellitus screening Diabetes Screening [facility] Start: 02-21-2025 End: 02-21-2025 ambulatory Hematology/Oncology Comment on above: 3 mo F/U-IVIG Start: 02-21-2025 End: 02-21-2025 Patient encounter procedure 02/21/2025 8:45 AM EDT Office Visit [facility] [place] [address] 3 mo F/U-IVIG [facility] Comment on above: 3 mo F/U-IVIG Start: 02-14-2025 End: 02-14-2025 Patient encounter procedure 02/14/2025 3:20 PM EDT Office Visit [facility] [address] [place] [id number] Bernabe English MD [address] [place] [address] Arrived [facility] Comment on above: Arrived Start: 02-08-2025 End: 02-08-2025 ambulatory 02/08/2025 2:00 PM EDT [facility] Hematology/Oncology [address] [place] [address] [facility] - Hematology/Oncology Comment on above: [facility] - Start: 01-31-2025 [facility] Start: 01-24-2025 End: 01-24-2025 ambulatory Hematology/Oncology Comment on above: IVIG q4 weeks IVIG(5hours) q4 week s Start: 01-22-2025 Influenza vaccination [facility] Start: 01-06-2025 End: 10-06-2025 25-hydroxyvitamin D3 [Mass/volume] in Serum or Plasma VITAMIN D 25 HYDROXY Lab Routine Vitamin D deficiency Expected: 01/06/2025 (Approximate), Expires: 10/06/2025 [facility] Comment on above: Expected: 01/06/2025 (Approximate), Expi res: 10/06/2025 Start: 01-06-2025 End: 10-06-2025 BLOOD TB SCREEN BLOOD TB SCREEN Lab Routine Screening-pulmonary TB Expected: 01/06/2025 (Approximate), Expires: 10/06/2025 [facility] Comment on above: Expected: 01/06/2025 (Approximate), Expi res: 10/06/2025 Start: 01-06-2025 End: 10-06-2025 C reactive protein [Mass/volume] in Serum or Plasma C-REACTIVE PROTEIN Lab Routine Elevated sed rate Elevated C-reactive protein (CRP) Expected: 01/06/2025 (Approximate), Expires: 10/06/2025 [facility] Comment on above: Expected: 01/06/2025 (Approximate), Expi res: 10/06/2025 Start: 01-06-2025 End: 10-06-2025 CBC panel - Blood by Automated count COMPLETE BLOOD COUNT Lab Routine Anemia of chronic disease Expected: 01/06/2025 (Approximate), Expires: 10/06/2025 [facility] Comment on above: Expected: 01/06/2025 (Approximate), Expi res: 10/06/2025 Start: 01-06-2025 End: 10-06-2025 Chronic hepatitis differentiation between hepatitis B and C virus panel - Serum or Plasma HEP REMOTE PANEL BL Lab Routine Elevated LFTs Expected: 01/06/2025 (Approximate), Expires: 10/06/2025 [facility] Comment on above: Expected: 01/06/2025 (Approximate), Expi res: 10/06/2025 Start: 01-06-2025 End: 10-06-2025 Cobalamin (Vitamin B12) [Mass/volume] in Serum or Plasma VITAMIN B12 Lab Routine Vitamin B12 deficiency Expected: 01/06/2025 (Approximate), Expires: 10/06/2025 [facility] Comment on above: Expected: 01/06/2025 (Approximate), Expi res: 10/06/2025 Start: 01-06-2025 End: 10-06-2025 Comprehensive metabolic 2000 panel - Serum or Plasma COMPREHENSIVE METABOLIC PANEL Lab Routine Elevated LFTs Expected: 01/06/2025 (Approximate), Expires: 10/06/2025 [facility] Work Phone: Comment on above: Expected: 01/06/2025 (Approximate), Expi res: 10/06/2025 Start: 01-06-2025 End: 10-06-2025 Erythrocyte sedimentation rate SEDIMENTATION RATE, WESTERGREN Lab Routine Elevated sed rate Elevated C-reactive protein (CRP) Expected: 01/06/2025 (Approximate), Expires: 10/06/2025 [facility] Comment on above: Expected: 01/06/2025 (Approximate), Expi res: 10/06/2025 Start: 12-27-2024 End: 12-27-2024 ambulatory 12/27/2024 9:00 AM T [facility]fusion [facility] Hematology/Oncology [address] [facility] [place] [address] IVIG q4 weeks Hematology/Oncology Comment on above: IVIG q4 weeks Start: 12-14-2024 End: 12-14-2024 ambulatory 12/14/2024 2:00 PM [facility] Infusion Center Hematology/Oncology [address] [facility] [place] [address] [facility] - Hematology/Oncology Comment on above: [facility] - Start: 11-29-2024 End: 11-29-2024 ambulatory Hematology/Oncology Comment on above: 3 mo F/U-IVIG(slow infusion per pt reque st/B12 +/-IV iron lab Start: 11-29-2024 End: 11-29-2024 Patient encounter procedure 11/29/2024 8:45 AM EDT Office Visit [facility] [address] [place] [address] [place] [address] 3 mo F/U-IVIG(slow infusion per pt request/B12 +/-IV iron lab [facility] Comment on above: 3 mo F/U-IVIG(slow infusion per pt reque st/B12 +/-IV iron lab Start: 11-20-2024 End: 02-19-2025 CBC W Auto Differential panel - Blood COMPLETE BLOOD COUNT AND DIFFERENTIAL Lab Routine Hypogammaglobulinemia (HCC) Expected: 11/20/2024, Expires: 02/19/2025 [facility] Work Phone: Comment on above: Expected: 11/20/2024, Expires: Start: 11-20-2024 End: 02-19-2025 Cobalamin (Vitamin B12) [Mass/volume] in Serum or Plasma VITAMIN B12 Lab Routine Hypogammaglobulinemia (HCC) Expected: 11/20/2024, Expires: 02/19/2025 [facility] Comment on above: Expected: 11/20/2024, Expires: Start: 11-20-2024 End: 02-19-2025 Comprehensive metabolic 2000 panel - Serum or Plasma COMPREHENSIVE METABOLIC PANEL Lab Routine Hypogammaglobulinemia (HCC) Expected: 11/20/2024, Expires: 02/19/2025 [facility] Comment on above: Expected: 11/20/2024, Expires: Start: 11-20-2024 End: 02-19-2025 Ferritin [Mass/volume] in Serum or Plasma FERRITIN Lab Routine Hypogammaglobulinemia (HCC) Expected: 11/20/2024, Expires: 02/19/2025 [facility] Comment on above: Expected: 11/20/2024, Expires: Start: 11-20-2024 End: 02-19-2025 Folate [Mass/volume] in Serum or Plasma FOLATE, SERUM Lab Routine Hypogammaglobulinemia (HCC) Expected: 11/20/2024, Expires: 02/19/2025 [facility] Comment on above: Expected: 11/20/2024, Expires: Start: 11-20-2024 End: 02-19-2025 IMMUNOGLOBULINS,IGG,IGA,IG M IMMUNOGLOBULINS,IGG,IGA,IG M Lab Routine Hypogammaglobulinemia (HCC) Expected: 11/20/2024, Expires: 02/19/2025 [facility] Comment on above: Expected: 11/20/2024, Expires: Start: 11-20-2024 Influenza vaccination Influenza Vaccine (#1) [facility] Comment on above: Postponed from 01/23/2024 (Patient Refus ed) Start: 11-20-2024 End: 02-19-2025 Iron and Iron binding capacity panel - Serum or Plasma IRON AND TIBC Lab Routine Hypogammaglobulinemia (HCC) Expected: 11/20/2024, Expires: 02/19/2025 [facility] Comment on above: Expected: 11/20/2024, Expires: Start: 11-16-2024 End: 11-16-2024 ambulatory 11/16/2024 2:00 PM EDT Infusion Center Hematology/Oncology [address] [facility] [place] [address] [facility] - Hematology/Oncology Comment on above: [facility] - Start: 11-01-2024 End: 11-01-2024 ambulatory 11/01/2024 9:00 AM EDT Infusion Center Hematology/Oncology [address] [facility] [place] [address] IVIG q 4 weeks with B 12 inj and lab Hematology/Oncology Comment on above: IVIG q 4 weeks with B 12 inj and lab Start: 10-31-2024 End: 10-31-2024 ambulatory 10/31/2024 9:00 AM EDT Infusion Center Hematology/Oncology [address] [place] [address] IVIG q 4 weeks with B 12 inj and lab Hematology/Oncology Comment on above: IVIG q 4 weeks with B 12 inj and lab Start: 10-19-2024 End: 10-19-2024 ambulatory 10/19/2024 2:00 PM EDT Infusion Center Hematology/Oncology [address] [facility] [place] [address] B[facility] - IVIG AND BENLYSTA AT LEAST 1 DAY APART FOR FUTURE APPTS Hematology/Oncology Comment on above: BENLYSTA - IVIG AND BENLYSTA AT LEAST 1 DAY APART FOR FUTURE APPTS Start: 10-18-2024 End: 10-18-2024 Specialty Pharmacy 10/18/2024 10:00 AM EDT Specialty Pharmacy [facility] [address] [place] [address] [address] [place] [address] Pharmacist, [facility] [address] [place] [address] [place] [address] REFILL- Benlysta- PAx 02/11/25- - mult call attempts [facility] Comment on above: REFILL- Benlysta- PAx 02/11/25- - mult call attempts Start: 10-07-2024 End: 10-07-2024 Follow-up encounter 10/07/2024 8:00 AM EDT [facility] Rheumatology [address] [place] [address] Lynne Ni MD [address] [place], [place] [id number] follow up visit Rheumatology Comment on above: follow up visit Start: 10-06-2024 End: 07-09-2025 25-hydroxyvitamin D3 [Mass/volume] in Serum or Plasma VITAMIN D 25 HYDROXY Lab Routine Vitamin D deficiency Expected: 10/06/2024 (Approximate), Expires: 07/09/2025 [facility] Comment on above: Expected: 10/06/2024 (Approximate), Expi res: 07/09/2025 Start: 10-06-2024 End: 07-09-2025 C reactive protein [Mass/volume] in Serum or Plasma C-REACTIVE PROTEIN Lab Routine Elevated sed rate Elevated C-reactive protein (CRP) Expected: 10/06/2024 (Approximate), Expires: 07/09/2025 [facility] Comment on above: Expected: 10/06/2024 (Approximate), Expi res: 07/09/2025 Start: 10-06-2024 End: 07-09-2025 CBC panel - Blood by Automated count COMPLETE BLOOD COUNT Lab Routine Anemia of chronic disease Expected: 10/06/2024 (Approximate), Expires: 07/09/2025 [facility] Comment on above: Expected: 10/06/2024 (Approximate), Expi res: 07/09/2025 Start: 10-06-2024 End: 07-09-2025 Comprehensive metabolic 2000 panel - Serum or Plasma COMPREHENSIVE METABOLIC PANEL Lab Routine Elevated LFTs Expected: 10/06/2024 (Approximate), Expires: 07/09/2025 [facility] Work Phone: Comment on above: Expected: 10/06/2024 (Approximate), Expi res: 07/09/2025 Start: 10-06-2024 End: 07-09-2025 Erythrocyte sedimentation rate SEDIMENTATION RATE, WESTERGREN Lab Routine Elevated sed rate Elevated C-reactive protein (CRP) Expected: 10/06/2024 (Approximate), Expires: 07/09/2025 [facility] Comment on above: Expected: 10/06/2024 (Approximate), [...] 10/02/2024 9:00 AM EDT Infusion Center Hematology/Oncology [address] [place] [address] [place] [address] IVIG q 4 weeks with B 12 inj and lab Hematology/Oncology Comment on above: IVIG q 4 weeks with B 12 inj and lab Start: 09-28-2024 End: 09-28-2024 Specialty Pharmacy 09/28/2024 10:00 AM EDT Specialty Pharmacy [facility] [address] [place] [address] Pharmacist, [facility] [address] [place] [address] [place] [address] REFILL- Benlysta- PAx 02/11/25- urs - LVM 09/20, 09/25 [facility] Comment on above: REFILL- Benlysta- PAx 02/11/25- - LVM 09/20, 09/25 Start: 09-25-2024 End: 09-25-2024 Specialty Pharmacy 09/25/2024 10:15 AM EDT Specialty Pharmacy [facility] [address] [place] [address] Pharmacist, [facility] [address] [place] [address] [place] [address] REFILL- Benlysta- PAx 02/11/25- - LVM 09/20 [facility] Comment on above: REFILL- Benlysta- PAx 02/11/25- - LVM 09/20 Start: 09-20-2024 End: 09-20-2024 Specialty Pharmacy 09/20/2024 10:15 AM EDT Specialty Pharmacy [facility] [address] [place], [place] [id number] Pharmacist, [facility] [address] [place] [address] [address] [place] [place] [id number] REFILL- Benlysta- PAx 02/11/25- - pend new Rx [facility] Comment on above: REFILL- Benlysta- PAx 02/11/25- - pend new Rx Start: 09-19-2024 End: 09-19-2024 Patient encounter procedure GMIT KVNG MONTERO Comment on above: hEDS with concerns and wants CTD evaluat ion Start: 09-18-2024 End: 09-18-2024 Specialty Pharmacy [facility] Comment on above: REFILL- Benlysta- PAx 02/11/25- [facility] Start: 09-06-2024 End: 09-06-2024 ambulatory 09/06/2024 9:30 AM EDT Infusion Center Hematology/Oncology [address] [place] [address] [place] [address] 3 mo F/U-IVIG(slow infusion per pt request/B12 +/-IV iron Hematology/Oncology Comment on above: 3 mo F/U-IVIG(slow infusion per pt reque st/B12 +/-IV iron Start: 09-06-2024 End: 09-06-2024 Follow-up encounter Hematology/Oncology Comment on above: 3 month follow up IVIG for hypogammaglob ulinemia + b12 Start: 09-06-2024 End: 09-06-2024 Patient encounter procedure 09/06/2024 8:45 AM EDT Office Visit [facility] [address] [facility] [facility] [place] [address] 3 month follow up IVIG for hypogammaglobulinemia + b12 [facility] Comment on above: 3 month follow up IVIG for hypogammaglob ulinemia + b12 Start: 09-05-2024 End: 09-05-2024 Follow-up encounter Hematology/Oncology Comment on above: 3 month follow up IVIG for hypogammaglob ulinemia + b12 Start: 09-05-2024 End: 09-05-2024 Patient encounter procedure 09/05/2024 8:45 AM EDT Office Visit [facility] [address] [facility] [place] [address] 3 month follow up IVIG for hypogammaglobulinemia + b12 [facility] Comment on above: 3 month follow up IVIG for hypogammaglob ulinemia + b12 Start: 09-04-2024 End: 09-04-2024 Patient encounter procedure 09/04/2024 3:20 PM EDT Office Visit [facility] [address] [facility] [address] [place] [address] Gordo Barfield MD [address] [facility] [address] [place] [address] Arrived [facility] Comment on above: Arrived Start: 08-28-2024 End: 11-27-2024 CBC W Auto Differential panel - Blood COMPLETE BLOOD COUNT AND DIFFERENTIAL Lab Routine Vitamin B12 deficiency Other iron deficiency anemia Hypogammaglobulinemia (HCC) Expected: 08/28/2024, Expires: 11/27/2024 [facility] Work Phone: Comment on above: Expected: 08/28/2024, Expires: Start: 08-28-2024 End: 11-27-2024 Cobalamin (Vitamin B12) [Mass/volume] in Serum or Plasma VITAMIN B12 Lab Routine Vitamin B12 deficiency Other iron deficiency anemia Hypogammaglobulinemia (HCC) Expected: 08/28/2024, Expires: 11/27/2024 [facility] Comment on above: Expected: 08/28/2024, Expires: Start: 08-28-2024 End: 11-27-2024 Comprehensive metabolic 2000 panel - Serum or Plasma COMPREHENSIVE METABOLIC PANEL Lab Routine Vitamin B12 deficiency Other iron deficiency anemia Hypogammaglobulinemia (HCC) Expected: 08/28/2024, Expires: 11/27/2024 [facility] Comment on above: Expected: 08/28/2024, Expires: Start: 08-28-2024 End: 11-27-2024 Ferritin [Mass/volume] in Serum or Plasma FERRITIN Lab Routine Vitamin B12 deficiency Other iron deficiency anemia Hypogammaglobulinemia (HCC) Expected: 08/28/2024, Expires: 11/27/2024 [facility] Comment on above: Expected: 08/28/2024, Expires: Start: 08-28-2024 End: 11-27-2024 Folate [Mass/volume] in Serum or Plasma FOLATE, SERUM Lab Routine Vitamin B12 deficiency Other iron deficiency anemia Hypogammaglobulinemia (HCC) Expected: 08/28/2024, Expires: 11/27/2024 [facility] Comment on above: Expected: 08/28/2024, Expires: Start: 08-28-2024 End: 11-27-2024 IgG [Mass/volume] in Serum or Plasma IMMUNOGLOBULIN G Lab Routine Vitamin B12 deficiency Other iron deficiency anemia Hypogammaglobulinemia (HCC) Expected: 08/28/2024, Expires: 11/27/2024 [facility] Comment on above: Expected: 08/28/2024, Expires: Start: 08-28-2024 End: 11-27-2024 Iron and Iron binding capacity panel - Serum or Plasma IRON AND TIBC Lab Routine Vitamin B12 deficiency Other iron deficiency anemia Hypogammaglobulinemia (HCC) Expected: 08/28/2024, Expires: 11/27/2024 [facility] Comment on above: Expected: 08/28/2024, Expires: Start: 08-22-2024 End: 08-22-2024 Patient encounter procedure 08/22/2024 1:30 PM EDT [facility] [address] [place] [address] Raj Kitchen MD [address] [place] [address] [facility] Start: 08-22-2024 End: 08-22-2024 Specialty Pharmacy 08/22/2024 10:15 AM EDT Specialty Pharmacy [facility] [address] [place] [id number] Pharmacist, [facility] [address] [place] [address] [place] [address] REFILL- Benlysta- PAx 02/11/25 [facility] 08/17 [facility] Comment on above: REFILL- Benlysta- PAx 02/11/25 [facility] 08/17 Start: 08-17-2024 End: 08-17-2024 Specialty Pharmacy 08/17/2024 10:00 AM EDT Specialty Pharmacy [facility] [address] [place] [id number] Pharmacist, [facility] [address] [place] [address] [place] [address] REFILL- Benlysta- PAx 02/11/25 [facility] Comment on above: REFILL- Benlysta- PAx 02/11/25 Start: 08-15-2024 End: 08-15-2024 Patient encounter procedure 08/15/2024 10:20 AM EDT Office Visit [facility] [address] [facility] [address] [place] [address] Gordo Barfield MD [address] [facility] [address] [place] [address] [facility] Start: 08-08-2024 End: 08-08-2024 ambulatory 08/08/2024 9:30 AM EDT Infusion Center Hematology/Oncology [address] [place] [address] [place] [address] IVIG for hypogammaglobulinemia + b12 Hematology/Oncology Comment on above: IVIG for hypogammaglobulinemia + b12 Start: 08-01-2024 End: 08-01-2024 Patient encounter procedure 08/01/2024 10:30 AM EDT Office Visit [facility] [address] [place] [address] Bernabe English MD [address] [place] [address] [facility] Start: 07-25-2024 End: 07-25-2024 Specialty Pharmacy [facility] Comment on above: REFILL- Benlysta- PAx 02/11/25- Arrived Start: 07-20-2024 End: 07-20-2024 ambulatory 07/20/2024 11:30 AM EST [facility] Infectious Disease [address] [place] [address] Alhaji Head DO [address] [place] [address] Positive blood cultures [R78.81] Infectious Disease Comment on above: Positive blood cultures [R78.81] Start: 07-20-2024 End: 07-20-2024 Patient encounter procedure 07/20/2024 11:30 AM EST Office Visit Infectious Disease [address] [place] [id number] Alhaji Head DO [address] [place] [address] Positive blood cultures [R78.81] Infectious Disease Comment on above: Positive blood cultures [R78.81] Start: 07-19-2024 [facility] Start: 07-13-2024 End: 07-13-2024 Patient encounter procedure 07/13/2024 9:20 AM EST Office Visit [facility] [address] [facility] [address] [place] [phone] Lois Holm MD [address] [facility] 2[address] [place] [address] [facility] Start: 07-12-2024 End: 07-12-2024 Patient encounter procedure 07/12/2024 2:40 PM EST Office Visit Otolaryngology [address] [place] [address] Marky Barnes PA-C [address] [place] [address] Recurrent Thrush. Otolaryngology Comment on above: Recurrent Thrush. Start: 07-11-2024 End: 07-11-2024 ambulatory 07/11/2024 9:30 AM EST Infusion Center Hematology/Oncology [address] [place] [address] [place] [address] IVIG for hypogammaglobulinemia + b12 Hematology/Oncology Comment on above: IVIG for hypogammaglobulinemia + b12 Start: 07-03-2024 End: 04-02-2025 25-hydroxyvitamin D3 [Mass/volume] in Serum or Plasma VITAMIN D 25 HYDROXY Lab Routine Vitamin D deficiency Expected: 07/03/2024 (Approximate), Expires: 04/02/2025 [facility] Comment on above: Expected: 07/03/2024 (Approximate), Expi res: 04/02/2025 Start: 07-03-2024 End: 04-02-2025 C reactive protein [Mass/volume] in Serum or Plasma C-REACTIVE PROTEIN Lab Routine Elevated sed rate Elevated C-reactive protein (CRP) Expected: 07/03/2024 (Approximate), Expires: 04/02/2025 [facility] Comment on above: Expected: 07/03/2024 (Approximate), Expi res: 04/02/2025 Start: 07-03-2024 End: 04-02-2025 CBC panel - Blood by Automated count COMPLETE BLOOD COUNT Lab Routine Anemia of chronic disease Expected: 07/03/2024 (Approximate), Expires: 04/02/2025 [facility] Comment on above: Expected: 07/03/2024 (Approximate), Expi res: 04/02/2025 Start: 07-03-2024 End: 04-02-2025 Comprehensive metabolic 2000 panel - Serum or Plasma COMPREHENSIVE METABOLIC PANEL Lab Routine Elevated LFTs Expected: 07/03/2024 (Approximate), Expires: 04/02/2025 [facility] Work Phone: Comment on above: Expected: 07/03/2024 (Approximate), Expi res: 04/02/2025 Start: 07-03-2024 End: 04-02-2025 Erythrocyte sedimentation rate SEDIMENTATION RATE, WESTERGREN Lab Routine Elevated sed rate Elevated C-reactive protein (CRP) Expected: 07/03/2024 (Approximate), Expires: 04/02/2025 [facility] Comment on above: Expected: 07/03/2024 (Approximate), Expi res: 04/02/2025 Start: 06-29-2024 End: 06-29-2024 Specialty Pharmacy 06/29/2024 10:00 AM EST Specialty Pharmacy [facility] [address] [place] [address] [place] [phone] Pharmacist, [facility] [address] [place] [address] [place] [phone] REFILL- Benlysta- PAx 02/11/25 [facility] Comment on above: REFILL- Benlysta- PAx 02/11/25 Start: 06-26-2024 End: 06-26-2024 Nursing evaluation of patient and report 06/26/2024 9:45 AM EST Nurse Visit Hematology/Oncology [address] [facility] [place] [address] Cele Marshall Nurse Dre [address] [facility] [place] [address] B12 Hematology/Oncology Comment on above: B12 Start: 06-26-2024 End: 06-26-2024 ambulatory Hematology/Oncology Comment on above: RTC 3 month IVIG for hypogammagl obulinemia Start: 06-26-2024 End: 06-26-2024 Patient encounter procedure 06/26/2024 8:45 AM EST Office Visit [facility] [address] [facility] [place] [address] labs [facility] Comment on above: labs Start: 06-14-2024 End: 06-14-2024 Nursing evaluation of patient and report [facility] Comment on above: Abdominal Pain/Diarrhea/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 order ed/Patient has prep thru MyChart//cc SIBO - Abdominal Gus n/Diarrhea/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 ordered/Patient has prep thru MyChart//cc Order in Scanned Documents Start: 06-13-2024 End: 09-12-2024 Cobalamin (Vitamin B12) [Mass/volume] in Serum or Plasma [facility] Comment on above: Expected: 06/13/2024, Expires: Start: 06-13-2024 End: 09-12-2024 Ferritin [Mass/volume] in Serum or Plasma [facility] Work Phone: Comment on above: Expected: 06/13/2024, Expires: Start: 06-13-2024 End: 09-12-2024 Folate [Mass/volume] in Serum or Plasma [facility] Comment on above: Expected: 06/13/2024, Expires: 5 Start: 06-13-2024 End: 09-12-2024 Iron and Iron binding capacity panel - Serum or Plasma [facility] Comment on above: Expected: 06/13/2024, Expires: 5 Start: 06-13-2024 End: 06-13-2024 Nursing evaluation of patient and report 06/13/2024 9:45 AM EST Nurse Visit Hematology/Oncology [address] [facility] [place] [address] Cele Marshall Nurse Dre [address] [facility] [place] [address] B12 Hematology/Oncology Comment on above: B12 Start: 06-13-2024 End: 06-13-2024 ambulatory Hematology/Oncology Comment on above: RTC 3 month IVIG for hypogammagl obulinemia Start: 06-13-2024 End: 06-13-2024 Patient encounter procedure 06/13/2024 8:45 AM EST Office Visit [facility] [address] [facility] [place] [address] labs [facility] Comment on above: labs Start: 06-06-2024 [...] 9:30 AM EST Nurse Visit Hematology/Oncology [address] [facility] [place] [address] Cele Marshall Nurse Dre [address] [facility] [place] [address] B12 Hematology/Oncology Comment on above: B12 Start: 05-19-2024 End: 05-19-2024 ambulatory 05/19/2024 9:30 AM EST Infusion Center Hematology/Oncology [address] [facility] [place] [address] IVIG for hypogammaglobulinemia Hematology/Oncology Comment on above: IVIG for hypogammaglobulinemia Start: 05-12-2024 End: 05-12-2024 Specialty Pharmacy 05/12/2024 10:00 AM EST Specialty Pharmacy [facility] [facility] [place] [address] Pharmacist, [facility] [address] [place] [address] [place] [address] REFILL- Benlysta- PAx 02/11/25 [facility] Comment on above: REFILL- Benlysta- PAx 02/11/25 Start: 04-28-2024 End: 04-28-2025 US.doppler Extremity arteries - bilateral for physiologic artery study Vas art doppler lwr bilat mult lev/PVR Vascular Ultrasound Routine Peripheral vascular disease, unspecified ([facility]) Cold extremities Systemic lupus erythematosus ([facility]) Expected: 04/28/2024, Expires: 04/28/2025 [facility] Work Phone: Comment on above: Expected: 04/28/2024, Expires: Start: 04-24-2024 End: 04-24-2024 Nursing evaluation of patient and report 04/24/2024 9:30 AM EST Nurse Visit Hematology/Oncology [address] [facility] [place] [address] Cele Marshall Nurse Dre [address] [facility] [place] [address] B12 Hematology/Oncology Comment on above: B12 Start: 04-18-2024 End: 04-18-2024 Nursing evaluation of patient and report [facility] Comment on above: [...] 03-28-2024 End: 03-28-2024 ambulatory 03/28/2024 1:00 PM [facility] Hematology/Oncology [address] [facility] [place] [address] Vera Najera MD [address] [facility] [place] [address] 13 wk virtual after labs last week Hematology/Oncology Comment on above: 13 wk virtual after labs last week Start: 03-23-2024 End: 03-23-2025 aPTT in Blood by Coagulation assay APTT Lab Routine Menorrhagia with regular cycle Expected: 03/23/2024 (Approximate), Expires: 03/23/2025 [facility] Comment on above: Expected: 03/23/2024 (Approximate), Expi res: 03/23/2025 Start: 03-23-2024 End: 03-23-2025 US for US PELVIS-TRANSVAG IF INDICATED Imaging Routine Menorrhagia with regular cycle Expected: 03/23/2024 (Approximate), Expires: 03/23/2025 [facility] Comment on above: Expected: 03/23/2024 (Approximate), Expi res: 03/23/2025 Start: 03-21-2024 End: 03-21-2024 Nursing evaluation of patient and report 03/21/2024 11:45 AM EDT Nurse Visit Hematology/Oncology [address] [facility] [place] [address] Cele Marshall Nurse Dre [address] [place] [address] b12 Hematology/Oncology Comment on above: b12 Start: 03-21-2024 End: 03-21-2024 Patient encounter procedure 03/21/2024 11:15 AM EDT Office Visit [facility] [address] [facility] [place] [address] LAb [facility] Comment on above: LAb Start: 03-20-2024 End: 12-29-2024 25-hydroxyvitamin D3 [Mass/volume] in Serum or Plasma VITAMIN D 25 HYDROXY Lab Routine Vitamin D deficiency Expected: 03/20/2024 (Approximate), Expires: 12/29/2024 [facility] Comment on above: Expected: 03/20/2024 (Approximate), Expi res: 12/29/2024 Start: 03-20-2024 End: 12-29-2024 BLOOD TB SCREEN BLOOD TB SCREEN Lab Routine Screening-pulmonary TB Expected: 03/20/2024 (Approximate), Expires: 12/29/2024 [facility] Comment on above: Expected: 03/20/2024 (Approximate), Expi res: 12/29/2024 Start: 03-20-2024 End: 12-29-2024 C reactive protein [Mass/volume] in Serum or Plasma C-REACTIVE PROTEIN Lab Routine Elevated C-reactive protein (CRP) Elevated sed rate Expected: 03/20/2024 (Approximate), Expires: 12/29/2024 [facility] Comment on above: Expected: 03/20/2024 (Approximate), Expi res: 12/29/2024 Start: 03-20-2024 End: 06-19-2024 CBC W Auto Differential panel - Blood COMPLETE BLOOD COUNT AND DIFFERENTIAL Lab Routine Megaloblastic anemia due to vitamin B12 deficiency Elevated sed rate Obstructive sleep apnea syndrome Expected: 03/20/2024 (Approximate), Expires: 06/19/2024 [facility] Comment on above: Expected: 03/20/2024 (Approximate), Expi res: 06/19/2024 Start: 03-20-2024 End: 06-19-2024 Cobalamin (Vitamin B12) [Mass/volume] in Serum or Plasma VITAMIN B12 Lab Routine Megaloblastic anemia due to vitamin B12 deficiency Elevated sed rate Obstructive sleep apnea syndrome Expected: 03/20/2024 (Approximate), Expires: 06/19/2024 [facility] Comment on above: Expected: 03/20/2024 (Approximate), Expi res: 06/19/2024 Start: 03-20-2024 End: 06-19-2024 Comprehensive metabolic 2000 panel - Serum or Plasma COMPREHENSIVE METABOLIC PANEL Lab Routine Megaloblastic anemia due to vitamin B12 deficiency Elevated sed rate Obstructive sleep apnea syndrome Expected: 03/20/2024 (Approximate), Expires: 06/19/2024 [facility] Work Phone: Comment on above: Expected: 03/20/2024 (Approximate), Expi res: 06/19/2024 Start: 03-20-2024 End: 12-29-2024 Erythrocyte sedimentation rate SEDIMENTATION RATE, WESTERGREN Lab Routine Elevated C-reactive protein (CRP) Elevated sed rate Expected: 03/20/2024 (Approximate), Expires: 12/29/2024 [facility] Work Phone: Comment on above: Expected: 03/20/2024 (Approximate), Expi res: 12/29/2024 Start: 03-20-2024 End: 06-19-2024 Ferritin [Mass/volume] in Serum or Plasma FERRITIN Lab Routine Megaloblastic anemia due to vitamin B12 deficiency Elevated sed rate Obstructive sleep apnea syndrome Expected: 03/20/2024 (Approximate), Expires: 06/19/2024 [facility] Comment on above: Expected: 03/20/2024 (Approximate), Expi res: 06/19/2024 Start: 03-20-2024 End: 06-19-2024 Folate [Mass/volume] in Serum or Plasma FOLATE, SERUM Lab Routine Megaloblastic anemia due to vitamin B12 deficiency Elevated sed rate Obstructive sleep apnea syndrome Expected: 03/20/2024 (Approximate), Expires: 06/19/2024 [facility] Comment on above: Expected: 03/20/2024 (Approximate), Expi res: 06/19/2024 Start: 03-20-2024 End: 06-19-2024 IMMUNOGLOBULINS,IGG,IGA,IG M IMMUNOGLOBULINS,IGG,IGA,IG M Lab Routine Megaloblastic anemia due to vitamin B12 deficiency Elevated sed rate Obstructive sleep apnea syndrome Expected: 03/20/2024 (Approximate), Expires: 06/19/2024 [facility] Comment on above: Expected: 03/20/2024 (Approximate), Expi res: 06/19/2024 Start: 03-20-2024 End: 06-19-2024 Iron and Iron binding capacity panel - Serum or Plasma IRON AND TIBC Lab Routine Megaloblastic anemia due to vitamin B12 deficiency Elevated sed rate Obstructive sleep apnea syndrome Expected: 03/20/2024 (Approximate), Expires: 06/19/2024 [facility] Comment on above: Expected: 03/20/2024 (Approximate), Expi res: 06/19/2024 Start: 03-18-2024 End: 03-18-2024 Patient encounter procedure 03/18/2024 9:00 AM EDT [facility] Rheumatology [address] [place], [place] [id number] Lynne Ni MD [address] [place], [place] [id number] May offer 03/18/24 Sat [facility] 4th floor in person/virtual/phone for lupus Rheumatology Comment on above: May offer 03/18/24 Sat [facility] 4th floor in person/virtual/phone for lupus Start: 03-16-2024 Patient referral [facility] Work Phone: Start: 03-16-2024 End: 05-16-2025 US Breast - bilateral Bilateral breast US complete Imaging Routine Nipple discharge Expected: 03/16/2024, Expires: 05/16/2025 [facility] Work Phone: Comment on above: Expected: 03/16/2024, Expires: Start: 03-16-2024 End: 03-16-2024 Specialty Pharmacy [facility] Comment on above: REFILL- Benlysta- PAx 02/11/25- NCA 5-l/m 03/13 Start: 03-13-2024 End: 03-13-2024 Specialty Pharmacy [facility] Comment on above: REFILL- Benlysta- PAx 02/04/24- NCA 10/10, [place] 02/23-renewal sub 02/13 REFILL- Benlysta- PA x 02/11/25- NCA , Start: 02-22-2024 End: 02-22-2024 Nursing evaluation of patient and report 02/22/2024 11:45 AM EDT Nurse Visit Hematology/Oncology [address] [facility] [address] Cele Marshall Nurse Dre [address] [facility] [address] b12 Hematology/Oncology Comment on above: b12 Start: 02-22-2024 End: 02-22-2024 Patient encounter procedure 02/22/2024 11:15 AM EDT Office Visit [facility] [address] [facility] [place] [address] LAb [facility] Comment on above: LAb Start: 02-21-2024 End: 02-21-2024 Nursing evaluation of patient and report 02/21/2024 10:45 AM EDT Nurse Visit Hematology/Oncology [address] [facility] [place] [address] Cele Marshall Nurse Dre [address] [facility] [address] b12 Hematology/Oncology Comment on above: b12 Start: 02-21-2024 End: 02-21-2024 Patient encounter procedure 02/21/2024 10:30 AM EDT Office Visit [facility] [address] [facility] [place] [address] LAb [facility] Comment on above: LAb Start: 02-16-2024 [facility] Start: 02-14-2024 End: 02-14-2024 Follow-up encounter Neurology Comment on above: Cpap follow up REFILL- Benlysta- PA x 02/04/24- NCA , [place] 02/23 Start: 02-09-2024 End: 02-09-2024 Patient encounter procedure 02/09/2024 8:00 AM EDT Office Visit [facility] NE[facility] [address], [place] [address] Zita Cuellar, [employer] [address] [place] [address] [facility] NEURO [address] Start: 01-27-2024 End: 04-27-2024 Bacteria identified in Blood by Culture BLOOD CULTURE Microbiology Routine Pseudomonas infection Expected: 01/27/2024, Expires: 04/27/2024 [facility] Work Phone: Comment on above: Expected: 01/27/2024, Expires: Start: 01-27-2024 End: 01-27-2024 Follow-up encounter 01/27/2024 10:00 AM EDT [facility] Infectious Disease [address] [facility] [place] [address] Alhaji Head DO [facility] [address] [place] [address] follow up Infectious Disease Comment on above: follow up Start: 01-25-2024 End: 01-25-2024 Nursing evaluation of patient and report Hematology/Oncology Comment on above: b12 B12(change date) Start: 01-25-2024 End: 01-25-2024 Patient encounter procedure [facility] Comment on above: LAb NO LAB ORDERS LAb Start: 01-24-2024 Influenza [facility] Comment on above: Postponed from 01/22/2023 (Patient Refus ed) Start: 01-23-2024 Covid-19 Vaccine ( season) Covid-19 Vaccine ( season) [facility] Start: 01-23-2024 Covid-19 Vaccine ( season) Covid-19 Vaccine ( season) [facility] Start: 01-23-2024 Influenza vaccination [facility] Start: 01-20-2024 End: 01-20-2024 Specialty Pharmacy [facility] Comment on above: refill - benlysta- NCA - pa exp: 02/04/24- 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 Start: 12-27-2023 End: 12-27-2023 Nursing evaluation of patient and report 12/27/2023 12:00 PM EDT Nurse Visit Hematology/Oncology [address] [facility] [place] [address] Cele Marshall Nurse Dre [address] [facility] [place] [address] b12 Hematology/Oncology Comment on above: b12 Start: 12-27-2023 End: 12-27-2023 Follow-up encounter 12/27/2023 11:30 AM EDT Visit (SP) Office Hematology/Oncology [address] [facility] [place] [address] Neda Hill PA-C [address] [facility] [place] [address] 13 week follow up, labs 1 week before Hematology/Oncology Comment on above: 13 week follow up, labs 1 week before Start: 12-27-2023 End: 12-27-2023 Patient encounter procedure 12/27/2023 11:15 AM EDT Office Visit [facility] [address] [facility] [place] [address] LAb [facility] Comment on above: LAb Start: 12-13-2023 End: 12-13-2023 Specialty Pharmacy 12/13/2023 10:00 AM EDT Specialty Pharmacy [facility] [address] [place] [address] [id number] [place] [address] Pharmacist, [facility] [address] [place] [address] [place] [phone] refill - benlysta- NCA - pa exp: 02/04/24- [facility] Comment on above: refill - benlysta- NCA - pa exp: 02/04/24- Start: 12-10-2023 End: 12-10-2023 Follow-up encounter 12/10/2023 10:45 AM EDT Visit (SP) Office Hematology/Oncology [address] [facility] [place] [address] Vera Najera MD [address] [facility] [place] [address] 13 week follow up, labs 1 week before Hematology/Oncology Comment on above: 13 week follow up, labs 1 week before Start: 12-04-2023 End: 09-03-2024 25-hydroxyvitamin D3 [Mass/volume] in Serum or Plasma VITAMIN D 25 HYDROXY Lab Routine Vitamin D deficiency Expected: 12/04/2023 (Approximate), Expires: 09/03/2024 [facility] Work Phone: Comment on above: Expected: 12/04/2023 (Approximate), Expi res: 09/03/2024 Start: 12-04-2023 End: 09-03-2024 C reactive protein [Mass/volume] in Serum or Plasma C-REACTIVE PROTEIN Lab Routine Elevated sed rate Elevated C-reactive protein (CRP) Expected: 12/04/2023 (Approximate), Expires: 09/03/2024 [facility] Work Phone: Comment on above: Expected: 12/04/2023 (Approximate), Expi res: 09/03/2024 Start: 12-04-2023 End: 09-03-2024 CBC panel - Blood by Automated count COMPLETE BLOOD COUNT Lab Routine Anemia of chronic disease Expected: 12/04/2023 (Approximate), Expires: 09/03/2024 [facility] Work Phone: Comment on above: Expected: 12/04/2023 (Approximate), Expi res: 09/03/2024 Start: 12-04-2023 End: 09-03-2024 Comprehensive metabolic 2000 panel - Serum or Plasma COMPREHENSIVE METABOLIC PANEL Lab Routine Elevated LFTs Expected: 12/04/2023 (Approximate), Expires: 09/03/2024 [facility] Work Phone: Comment on above: Expected: 12/04/2023 (Approximate), Expi res: 09/03/2024 Start: 12-04-2023 End: 09-03-2024 Erythrocyte sedimentation rate SEDIMENTATION RATE, WESTERGREN Lab Routine Elevated sed rate Elevated C-reactive protein (CRP) Expected: 12/04/2023 (Approximate), Expires: 09/03/2024 [facility] Work Phone: Comment on above: Expected: 12/04/2023 (Approximate), Expi res: 09/03/2024 Start: 12-03-2023 End: 12-03-2023 Nursing evaluation of patient and report 12/03/2023 11:00 AM EDT Nurse Visit Hematology/Oncology [address] [facility] [place] [address] Cele Marshall Nurse Dre [address] [facility] [place] [address] b12 Hematology/Oncology Comment on above: b12 Start: 12-03-2023 End: 12-03-2023 Patient encounter procedure 12/03/2023 10:45 AM EDT [facility] Laboratory [address] [place] [address] lab [facility] Comment on above: lab Start: 12-02-2023 End: 09-08-2024 CBC W Auto Differential panel - Blood COMPLETE BLOOD COUNT AND DIFFERENTIAL Lab Routine Megaloblastic anemia due to vitamin B12 deficiency High total serum IgM Expected: 12/02/2023 (Approximate), Expires: 09/08/2024 [facility] Work Phone: Comment on above: Expected: 12/02/2023 (Approximate), Expi res: 09/08/2024 Start: 12-02-2023 End: 09-08-2024 Cobalamin (Vitamin B12) [Mass/volume] in Serum or Plasma VITAMIN B12 Lab Routine Megaloblastic anemia due to vitamin B12 deficiency High total serum IgM Expected: 12/02/2023 (Approximate), Expires: 09/08/2024 [facility] Work Phone: Comment on above: Expected: 12/02/2023 (Approximate), Expi res: 09/08/2024 Start: 12-02-2023 End: 09-08-2024 Comprehensive metabolic 2000 panel - Serum or Plasma COMPREHENSIVE METABOLIC PANEL Lab Routine Megaloblastic anemia due to vitamin B12 deficiency High total serum IgM Expected: 12/02/2023 (Approximate), Expires: 09/08/2024 [facility] Work Phone: Comment on above: Expected: 12/02/2023 (Approximate), Expi res: 09/08/2024 Start: 12-02-2023 End: 03-02-2024 Erythrocyte sedimentation rate SEDIMENTATION RATE, WESTERGREN Lab Routine Megaloblastic anemia due to vitamin B12 deficiency High total serum IgM Expected: 12/02/2023 (Approximate), Expires: 03/02/2024 [facility] Work Phone: Comment on above: Expected: 12/02/2023 (Approximate), Expi res: 03/02/2024 Start: 12-02-2023 End: 09-08-2024 Ferritin [Mass/volume] in Serum or Plasma FERRITIN Lab Routine Megaloblastic anemia due to vitamin B12 deficiency High total serum IgM Expected: 12/02/2023 (Approximate), Expires: 09/08/2024 [facility] Work Phone: Comment on above: Expected: 12/02/2023 (Approximate), Expi res: 09/08/2024 Start: 12-02-2023 End: 09-08-2024 Folate [Mass/volume] in Serum or Plasma FOLATE, SERUM Lab Routine Megaloblastic anemia due to vitamin B12 deficiency High total serum IgM Expected: 12/02/2023 (Approximate), Expires: 09/08/2024 [facility] Work Phone: Comment on above: Expected: 12/02/2023 (Approximate), Expi res: 09/08/2024 Start: 12-02-2023 End: 03-02-2024 IgA [Mass/volume] in Serum or Plasma IMMUNOGLOBULIN A Lab Routine Megaloblastic anemia due to vitamin B12 deficiency High total serum IgM Expected: 12/02/2023 (Approximate), Expires: 03/02/2024 [facility] Work Phone: Comment on above: Expected: 12/02/2023 (Approximate), Expi res: 03/02/2024 Start: 12-02-2023 End: 03-02-2024 IgE [Units/volume] in Serum or Plasma IMMUNOGLOBULIN E Lab Routine Megaloblastic anemia due to vitamin B12 deficiency High total serum IgM Expected: 12/02/2023 (Approximate), Expires: 03/02/2024 [facility] Work Phone: Comment on above: Expected: 12/02/2023 (Approximate), Expi res: 03/02/2024 Start: 12-02-2023 End: 03-02-2024 IgG [Mass/volume] in Serum or Plasma IMMUNOGLOBULIN G Lab Routine Megaloblastic anemia due to vitamin B12 deficiency High total serum IgM Expected: 12/02/2023 (Approximate), Expires: 03/02/2024 [facility] Work Phone: Comment on above: Expected: 12/02/2023 (Approximate), Expi res: 03/02/2024 Start: 12-02-2023 End: 03-02-2024 IgM [Mass/volume] in Serum or Plasma IMMUNOGLOBULIN M Lab Routine Megaloblastic anemia due to vitamin B12 deficiency High total serum IgM Expected: 12/02/2023 (Approximate), Expires: 03/02/2024 [facility] Work Phone: Comment on above: Expected: 12/02/2023 (Approximate), Expi res: 03/02/2024 Start: 12-02-2023 End: 09-08-2024 Iron and Iron binding capacity panel - Serum or Plasma IRON AND TIBC Lab Routine Megaloblastic anemia due to vitamin B12 deficiency High total serum IgM Expected: 12/02/2023 (Approximate), Expires: 09/08/2024 [facility] Work Phone: Comment on above: Expected: 12/02/2023 (Approximate), Expi res: 09/08/2024 Start: 11-29-2023 End: 11-29-2023 Nursing evaluation of patient and report 11/29/2023 2:15 PM EDT Nurse Visit Hematology/Oncology [address] [place] [address] [place] [address] Cele Marshall Nurse Dre [address] [place] [address] b12 Hematology/Oncology Comment on above: b12 Start: 11-15-2023 End: 11-15-2023 Specialty Pharmacy 11/15/2023 10:00 AM EDT Specialty Pharmacy [facility] [address] [place] [id number] Pharmacist, [facility] [address] [place] [address] [place] [address] refill - [email or web address]- NCA - pa exp: 02/04/24- [facility] Comment on above: refill - benlysta- NCA - pa exp: 02/04/24- Start: 10-29-2023 End: 10-29-2023 Nursing evaluation of patient and report 10/29/2023 11:00 AM EDT Nurse Visit Hematology/Oncology [address] [place] [address] Cele Marshall Nurse Dre [address] [place] [address] b12 Hematology/Oncology Comment on above: b12 Start: 10-15-2023 End: 10-15-2023 Specialty Pharmacy 10/15/2023 10:00 AM EDT Specialty Pharmacy [facility] [address] [place] [id number] Pharmacist, [facility] [address] [place] [address] [place] [address] refill - [email or web address]-ursdays- pa exp: 02/04/24-l/m 10/11 [facility] Comment on above: refill - [email or web address]-Thursdays- pa exp: 01/22 08/14-l/m 10/11 Start: 10-12-2023 End: 10-12-2023 Specialty Pharmacy 10/12/2023 10:00 AM EDT Specialty Pharmacy [facility] [address] [place] [address], [place] [address] Pharmacist, [facility] [address] [place] [address] [place] [address] refill - [email or web address]-Thursdays- pa exp: 02/04/24- [facility] Comment on above: refill - [email or web address]-Thursdays- pa exp: 01/22 08/14- Start: 10-05-2023 End: 10-05-2023 Patient encounter procedure 10/05/2023 8:00 AM EDT [facility] Rheumatology [address] [place] [address] Lynne Ni MD [address] [facility] [place] [address] 6 mo f/u for Lupus Rheumatology Comment on above: 6 mo f/u for Lupus Start: 10-01-2023 End: 10-01-2023 Nursing evaluation of patient and report 10/01/2023 11:00 AM EDT Nurse Visit Hematology/Oncology [address] [place] [address] Cele Marshall Nurse Dre [address] [place] [address] b12 Hematology/Oncology Comment on above: b12 Start: 09-16-2023 End: 09-16-2023 Specialty Pharmacy 09/16/2023 10:00 AM EDT Specialty Pharmacy [facility] [address] [place] [phone] Pharmacist, [facility] [address] [place] [address] [place] [address] refill - [email or web address]-Thursdays- pa exp: 02/04/24-lvm [facility] Comment on above: refill - [email or web address]-Thursdays- pa exp: 01/22 08/14-lvm Start: 09-13-2023 End: 09-13-2023 Patient encounter procedure 09/13/2023 9:00 AM EDT Office Visit [facility] [address] [place] [id number] Kade Richardson MD [address] [facility] [address] [place] [id number] [facility] Start: 07-19-2023 End: 07-19-2023 Patient encounter procedure [facility] Start: 07-15-2023 End: 07-15-2023 Patient encounter procedure 07/15/2023 10:50 AM EST Office Visit [facility] [address] [place] [phone] Bernabe English MD [address] [place] [address] [facility] Start: 07-06-2023 End: 07-06-2023 Patient encounter procedure 07/06/2023 2:30 PM EST Office Visit [facility] [address] [address] [place] [phone] Kade Richardson MD [address] [facility] [address] [place] [id number] [facility] [address] Start: 07-06-2023 End: 07-06-2024 Protein electrophoresis, serum Protein electrophoresis, serum Lab Routine Autoimmune disease (CMS/HCC) Autonomic dysfunction Expected: 07/06/2023 (Approximate), Expires: 07/06/2024 [facility] Work Phone: Comment on above: Expected: 07/06/2023 (Approximate), Expi res: 07/06/2024 Start: 07-06-2023 End: 07-06-2024 Protein electrophoresis, urine Protein electrophoresis, urine Lab Routine Autoimmune disease (CMS/HCC) Autonomic dysfunction Expected: 07/06/2023 (Approximate), Expires: 07/06/2024 [facility] Comment on above: Expected: 07/06/2023 (Approximate), Expi res: 07/06/2024 Start: 06-09-2023 End: 06-09-2024 Holter monitor study Holter Or Event [facility] Routine Irregular heart rate Expected: 06/09/2023 (Approximate), Expires: 06/09/2024 [facility] Work Phone: Comment on above: Expected: 06/09/2023 (Approximate), Expi res: 06/09/2024 Start: 06-09-2023 End: 06-09-2024 Lipid 1996 panel - Serum or Plasma Lipid Panel Lab Routine Primary hypertension Expected: 06/09/2023 (Approximate), Expires: 06/09/2024 [facility] Work Phone: Comment on above: Expected: 06/09/2023 (Approximate), Expi res: 06/09/2024 Start: 06-09-2023 End: 06-09-2024 Thyrotropin [Units/volume] in Serum or Plasma Thyroid Stimulating Hormone Lab Routine Irregular heart rate Expected: 06/09/2023 (Approximate), Expires: 06/09/2024 [facility] Work Phone: Comment on above: Expected: 06/09/2023 (Approximate), Expi res: 06/09/2024 Start: 06-09-2023 End: 06-09-2024 Thyroxine (T4) free [Mass/volume] in Serum or Plasma Thyroxine, Free Lab Routine Irregular heart rate Expected: 06/09/2023 (Approximate), Expires: 06/09/2024 [facility] Work Phone: Comment on above: Expected: 06/09/2023 (Approximate), Expi res: 06/09/2024 Start: 06-09-2023 End: 06-09-2025 US Heart Transthoracic Transthoracic Echo (TTE) Complete Echocardiography Routine Irregular heart rate Obstructive sleep apnea syndrome Expected: 06/09/2023 (Approximate), Expires: 06/09/2025 [facility] Service Area Work Phone: Comment on above: Expected: 06/09/2023 (Approximate), Expi res: 06/09/2025 Start: 04-25-2023 End: 01-25-2024 25-hydroxyvitamin D3 [Mass/volume] in Serum or Plasma VITAMIN D 25 HYDROXY Lab Routine Vitamin D deficiency Expected: 04/25/2023 (Approximate), Expires: 01/25/2024 [facility] Work Phone: Comment on above: Expected: 04/25/2023 (Approximate), Expi res: 01/25/2024 Start: 04-25-2023 End: 01-25-2024 C reactive protein [Mass/volume] in Serum or Plasma C-REACTIVE PROTEIN (CRP) Lab Routine Elevated sed rate Elevated C-reactive protein (CRP) Expected: 04/25/2023 (Approximate), Expires: 01/25/2024 [facility] Work Phone: Comment on above: Expected: 04/25/2023 (Approximate), Expi res: 01/25/2024 Start: 04-25-2023 End: 01-25-2024 CBC panel - Blood by Automated count CBC Lab Routine Anemia of chronic disease Expected: 04/25/2023 (Approximate), Expires: 01/25/2024 [facility] Work Phone: Comment on above: Expected: 04/25/2023 (Approximate), Expi res: 01/25/2024 Start: 04-25-2023 End: 01-25-2024 Comprehensive metabolic 2000 panel - Serum or Plasma COMP METABOLIC PANEL Lab Routine Elevated LFTs Expected: 04/25/2023 (Approximate), Expires: 01/25/2024 [facility] Work Phone: Comment on above: Expected: 04/25/2023 (Approximate), Expi res: 01/25/2024 Start: 04-25-2023 End: 01-25-2024 Erythrocyte sedimentation rate SED RATE WESTERGREN Lab Routine Elevated sed rate Elevated C-reactive protein (CRP) Expected: 04/25/2023 (Approximate), Expires: 01/25/2024 [facility] Work Phone: Comment on above: Expected: 04/25/2023 (Approximate), Expi res: 01/25/2024 Start: 04-20-2023 COVID-19 Vaccine (4 - Pfizer risk series) COVID-19 Vaccine (4 - Pfizer risk series) [facility] Start: 04-20-2023 Covid-19 Vaccine ( season) Covid-19 Vaccine () [facility] Start: 04-20-2023 Covid-19 Vaccine ( season) Covid-19 Vaccine () [facility] Start: 04-16-2023 End: 02-20-2024 CBC W Auto Differential panel - Blood CBC + DIFF Lab Routine Megaloblastic anemia due to vitamin B12 deficiency Elevated sed rate Chronic fatigue and malaise High total serum IgM JOSE RAFAEL (obstructive sleep apnea) Expected: 04/16/2023 (Approximate), Expires: 02/20/2024 [facility] Work Phone: Comment on above: Expected: 04/16/2023 (Approximate), Expi res: 02/20/2024 Start: 04-16-2023 End: 02-20-2024 Cobalamin (Vitamin B12) [Mass/volume] in Serum or Plasma VITAMIN B12 BLOOD Lab Routine Megaloblastic anemia due to vitamin B12 deficiency Elevated sed rate Chronic fatigue and malaise High total serum IgM JOSE RAFAEL (obstructive sleep apnea) Expected: 04/16/2023 (Approximate), Expires: 02/20/2024 [facility] Work Phone: Comment on above: Expected: 04/16/2023 (Approximate), Expi res: 02/20/2024 Start: 04-16-2023 End: 02-20-2024 Comprehensive metabolic 2000 panel - Serum or Plasma COMP METABOLIC PANEL Lab Routine Megaloblastic anemia due to vitamin B12 deficiency Elevated sed rate Chronic fatigue and malaise High total serum IgM JOSE RAFAEL (obstructive sleep apnea) Expected: 04/16/2023 (Approximate), Expires: 02/20/2024 [facility] Work Phone: Comment on above: Expected: 04/16/2023 (Approximate), Expi res: 02/20/2024 Start: 04-16-2023 End: 02-20-2024 Ferritin [Mass/volume] in Serum or Plasma FERRITIN BLD Lab Routine Megaloblastic anemia due to vitamin B12 deficiency Elevated sed rate Chronic fatigue and malaise High total serum IgM JOSE RAFAEL (obstructive sleep apnea) Expected: 04/16/2023 (Approximate), Expires: 02/20/2024 [facility] Work Phone: Comment on above: Expected: 04/16/2023 (Approximate), Expi res: 02/20/2024 Start: 04-16-2023 End: 02-20-2024 Folate [Mass/volume] in Serum or Plasma FOLATE SERUM Lab Routine Megaloblastic anemia due to vitamin B12 deficiency Elevated sed rate Chronic fatigue and malaise High total serum IgM JOSE RAFAEL (obstructive sleep apnea) Expected: 04/16/2023 (Approximate), Expires: 02/20/2024 [facility] Work Phone: Comment on above: Expected: 04/16/2023 (Approximate), Expi res: 02/20/2024 Start: 04-16-2023 End: 02-20-2024 Iron and Iron binding capacity panel - Serum or Plasma IRON + TIBC Lab Routine Megaloblastic anemia due to vitamin B12 deficiency Elevated sed rate Chronic fatigue and malaise High total serum IgM JOSE RAFAEL (obstructive sleep apnea) Expected: 04/16/2023 (Approximate), Expires: 02/20/2024 [facility] Work Phone: Comment on above: Expected: 04/16/2023 (Approximate), Expi res: 02/20/2024 Start: 03-23-2023 COVID-19 Vaccine (3 - Pfizer risk series) COVID-19 Vaccine (3 - Pfizer risk series) [facility] Start: 03-17-2023 Diabetes mellitus screening Diabetes Screening [facility] Start: 03-10-2023 End: 06-09-2023 Insulin [Units/volume] in Serum or Plasma INSULIN ASSAY BLOOD Lab Routine Insulin resistance, unspecified Expected: 03/10/2023, Expires: 06/09/2023 [facility] Work Phone: Comment on above: Expected: 03/10/2023, Expires: Start: 03-10-2023 End: 06-09-2023 INSULIN ANTIBODY BLD INSULIN ANTIBODY BLD Lab Routine Insulin resistance, unspecified Expected: 03/10/2023, Expires: 06/09/2023 [facility] Work Phone: Comment on above: Expected: 03/10/2023, Expires: Start: 02-11-2023 End: 02-08-2024 [id number] [Mass/volume] in Serum or Plasma B2 MICROGLOBULIN B Lab Routine Megaloblastic anemia due to vitamin B12 deficiency High total serum IgM Elevated sed rate Expected: 02/11/2023 (Approximate), Expires: 02/08/2024 [facility] Work Phone: Comment on above: Expected: 02/11/2023 (Approximate), Expi res: 02/08/2024 Start: 02-11-2023 End: 02-08-2024 Calcium.ionized [Moles/volume] in Blood CALCIUM IONIZED BLOOD Lab Routine Megaloblastic anemia due to vitamin B12 deficiency High total serum IgM Elevated sed rate Expected: 02/11/2023 (Approximate), Expires: 02/08/2024 [facility] Work Phone: Comment on above: Expected: 02/11/2023 (Approximate), Expi res: 02/08/2024 Start: 02-11-2023 End: 02-08-2024 CBC W Auto Differential panel - Blood CBC + DIFF Lab Routine Megaloblastic anemia due to vitamin B12 deficiency High total serum IgM Elevated sed rate Expected: 02/11/2023 (Approximate), Expires: 02/08/2024 [facility] Work Phone: Comment on above: Expected: 02/11/2023 (Approximate), Expi res: 02/08/2024 Start: 02-11-2023 End: 02-08-2024 Cobalamin (Vitamin B12) [Mass/volume] in Serum or Plasma VITAMIN B12 BLOOD Lab Routine Megaloblastic anemia due to vitamin B12 deficiency High total serum IgM Elevated sed rate Expected: 02/11/2023 (Approximate), Expires: 02/08/2024 [facility] Work Phone: Comment on above: Expected: 02/11/2023 (Approximate), Expi res: 02/08/2024 Start: 02-11-2023 End: 02-08-2024 Comprehensive metabolic 2000 panel - Serum or Plasma COMP METABOLIC PANEL Lab Routine Megaloblastic anemia due to vitamin B12 deficiency High total serum IgM Elevated sed rate Expected: 02/11/2023 (Approximate), Expires: 02/08/2024 [facility] Work Phone: Comment on above: Expected: 02/11/2023 (Approximate), Expi res: 02/08/2024 Start: 02-11-2023 End: 02-08-2024 Ferritin [Mass/volume] in Serum or Plasma FERRITIN BLD Lab Routine Megaloblastic anemia due to vitamin B12 deficiency High total serum IgM Elevated sed rate Expected: 02/11/2023 (Approximate), Expires: 02/08/2024 [facility] Work Phone: Comment on above: Expected: 02/11/2023 (Approximate), Expi res: 02/08/2024 Start: 02-11-2023 End: 02-08-2024 Folate [Mass/volume] in Serum or Plasma FOLATE SERUM Lab Routine Megaloblastic anemia due to vitamin B12 deficiency High total serum IgM Elevated sed rate Expected: 02/11/2023 (Approximate), Expires: 02/08/2024 [facility] Work Phone: Comment on above: Expected: 02/11/2023 (Approximate), Expi res: 02/08/2024 Start: 02-11-2023 End: 02-08-2024 Iron and Iron binding capacity panel - Serum or Plasma IRON + TIBC Lab Routine Megaloblastic anemia due to vitamin B12 deficiency High total serum IgM Elevated sed rate Expected: 02/11/2023 (Approximate), Expires: 02/08/2024 [facility] Work Phone: Comment on above: Expected: 02/11/2023 (Approximate), Expi res: 02/08/2024 Start: 02-11-2023 End: 04-13-2023 KAPPA/FARMER,FREE,SER KAPPA/FARMER,FREE,SER Lab Routine Megaloblastic anemia due to vitamin B12 deficiency High total serum IgM Elevated sed rate Expected: 02/11/2023 (Approximate), Expires: 04/13/2023 [facility] Work Phone: Comment on above: Expected: 02/11/2023 (Approximate), Expi res: 04/13/2023 Start: 02-11-2023 End: 02-08-2024 Lactate dehydrogenase [Enzymatic activity/volume] in Serum or Plasma LD LACTATE DEHYDRO Lab Routine Megaloblastic anemia due to vitamin B12 deficiency High total serum IgM Elevated sed rate Expected: 02/11/2023 (Approximate), Expires: 02/08/2024 [facility] Work Phone: Comment on above: Expected: 02/11/2023 (Approximate), Expi res: 02/08/2024 Start: 02-11-2023 End: 02-08-2024 MONOCLONAL PROTEIN, SERUM (BLOOD) MONOCLONAL PROTEIN, SERUM (BLOOD) Lab Routine Megaloblastic anemia due to vitamin B12 deficiency High total serum IgM Elevated sed rate Expected: 02/11/2023 (Approximate), Expires: 02/08/2024 [facility] Work Phone: Comment on above: Expected: 02/11/2023 (Approximate), Expi res: 02/08/2024 Start: 02-11-2023 End: 02-08-2024 Phosphate [Mass/volume] in Serum or Plasma PHOSPHORUS INORGANIC Lab Routine Megaloblastic anemia due to vitamin B12 deficiency High total serum IgM Elevated sed rate Expected: 02/11/2023 (Approximate), Expires: 02/08/2024 [facility] Work Phone: Comment on above: Expected: 02/11/2023 (Approximate), Expi res: 02/08/2024 Start: 02-11-2023 End: 02-08-2024 PROTEIN ELECTROPHORESIS SERUM W/INTERP PROTEIN ELECTROPHORESIS SERUM W/INTERP Lab Routine Megaloblastic anemia due to vitamin B12 deficiency High total serum IgM Elevated sed rate Expected: 02/11/2023 (Approximate), Expires: 02/08/2024 [facility] Work Phone: Comment on above: Expected: 02/11/2023 (Approximate), Expi res: 02/08/2024 Start: 02-11-2023 End: 02-08-2024 Urate [Mass/volume] in Serum or Plasma URIC ACID BLOOD Lab Routine Megaloblastic anemia due to vitamin B12 deficiency High total serum IgM Elevated sed rate Expected: 02/11/2023 (Approximate), Expires: 02/08/2024 [facility] Work Phone: Comment on above: Expected: 02/11/2023 (Approximate), Expi res: 02/08/2024 Start: 01-22-2023 Influenza vaccination [facility] Start: 12-17-2022 End: 10-23-2023 CBC W Auto Differential panel - Blood CBC + DIFF Lab Routine Megaloblastic anemia due to vitamin B12 deficiency Expected: 12/17/2022 (Approximate), Expires: 10/23/2023 [facility] Work Phone: Comment on above: Expected: 12/17/2022 (Approximate), Expi res: 10/23/2023 Start: 12-17-2022 End: 10-23-2023 Cobalamin (Vitamin B12) [Mass/volume] in Serum or Plasma VITAMIN B12 BLOOD Lab Routine Megaloblastic anemia due to vitamin B12 deficiency Expected: 12/17/2022 (Approximate), Expires: 10/23/2023 [facility] Work Phone: Comment on above: Expected: 12/17/2022 (Approximate), Expi res: 10/23/2023 Start: 12-17-2022 End: 10-23-2023 Comprehensive metabolic 2000 panel - Serum or Plasma COMP METABOLIC PANEL Lab Routine Megaloblastic anemia due to vitamin B12 deficiency Expected: 12/17/2022 (Approximate), Expires: 10/23/2023 [facility] Work Phone: Comment on above: Expected: 12/17/2022 (Approximate), Expi res: 10/23/2023 Start: 12-17-2022 End: 10-23-2023 Ferritin [Mass/volume] in Serum or Plasma FERRITIN BLD Lab Routine Megaloblastic anemia due to vitamin B12 deficiency Expected: 12/17/2022 (Approximate), Expires: 10/23/2023 [facility] Work Phone: Comment on above: Expected: 12/17/2022 (Approximate), Expi res: 10/23/2023 Start: 12-17-2022 End: 10-23-2023 Folate [Mass/volume] in Serum or Plasma FOLATE SERUM Lab Routine Megaloblastic anemia due to vitamin B12 deficiency Expected: 12/17/2022 (Approximate), Expires: 10/23/2023 [facility] Work Phone: Comment on above: Expected: 12/17/2022 (Approximate), Expi res: 10/23/2023 Start: 12-17-2022 End: 10-23-2023 Iron and Iron binding capacity panel - Serum or Plasma IRON + TIBC Lab Routine Megaloblastic anemia due to vitamin B12 deficiency Expected: 12/17/2022 (Approximate), Expires: 10/23/2023 [facility] Work Phone: Comment on above: Expected: 12/17/2022 (Approximate), Expi res: 10/23/2023 Start: 10-23-2022 End: 12-23-2022 25-hydroxyvitamin D3 [Mass/volume] in Serum or Plasma VITAMIN D 25 HYDROXY Lab Routine Megaloblastic anemia due to vitamin B12 deficiency Elevated sed rate High total serum IgM Chronic fatigue and malaise JOSE RAFAEL (obstructive sleep apnea) Expected: 10/23/2022, Expires: 12/23/2022 [facility] Work Phone: Comment on above: Expected: 10/23/2022, Expires: Start: 10-23-2022 End: 12-23-2022 C reactive protein [Mass/volume] in Serum or Plasma C-REACTIVE PROTEIN (CRP) Lab Routine Megaloblastic anemia due to vitamin B12 deficiency Elevated sed rate High total serum IgM Chronic fatigue and malaise JOSE RAFAEL (obstructive sleep apnea) Expected: 10/23/2022, Expires: 12/23/2022 [facility] Work Phone: Comment on above: Expected: 10/23/2022, Expires: Start: 10-23-2022 End: 12-23-2022 CBC W Auto Differential panel - Blood CBC + DIFF Lab Routine Megaloblastic anemia due to vitamin B12 deficiency Elevated sed rate High total serum IgM Chronic fatigue and malaise JOSE RAFAEL (obstructive sleep apnea) Expected: 10/23/2022, Expires: 12/23/2022 [facility] Work Phone: Comment on above: Expected: 10/23/2022, Expires: Start: 10-23-2022 End: 12-23-2022 Cobalamin (Vitamin B12) [Mass/volume] in Serum or Plasma VITAMIN B12 BLOOD Lab Routine Megaloblastic anemia due to vitamin B12 deficiency Elevated sed rate High total serum IgM Chronic fatigue and malaise JOSE RAFAEL (obstructive sleep apnea) Expected: 10/23/2022, Expires: 12/23/2022 [facility] Work Phone: Comment on above: Expected: 10/23/2022, Expires: 3 Start: 10-23-2022 End: 12-23-2022 Comprehensive metabolic 2000 panel - Serum or Plasma COMP METABOLIC PANEL Lab Routine Megaloblastic anemia due to vitamin B12 deficiency Elevated sed rate High total serum IgM Chronic fatigue and malaise JOSE RAFAEL (obstructive sleep apnea) Expected: 10/23/2022, Expires: 12/23/2022 [facility] Work Phone: Comment on above: Expected: 10/23/2022, Expires: Start: 10-23-2022 End: 12-23-2022 Erythrocyte sedimentation rate SED RATE WESTERGREN Lab Routine Megaloblastic anemia due to vitamin B12 deficiency Elevated sed rate High total serum IgM Chronic fatigue and malaise JOSE RAFAEL (obstructive sleep apnea) Expected: 10/23/2022, Expires: 12/23/2022 [facility] Work Phone: Comment on above: Expected: 10/23/2022, Expires: 3 Start: 10-23-2022 End: 12-23-2022 Lactate dehydrogenase [Enzymatic activity/volume] in Serum or Plasma LD LACTATE DEHYDRO Lab Routine Megaloblastic anemia due to vitamin B12 deficiency Elevated sed rate High total serum IgM Chronic fatigue and malaise JOSE RAFAEL (obstructive sleep apnea) Expected: 10/23/2022, Expires: 12/23/2022 [facility] Work Phone: Comment on above: Expected: 10/23/2022, Expires: Start: 10-23-2022 End: 12-23-2022 MONOCLONAL PROTEIN, SERUM (BLOOD) MONOCLONAL PROTEIN, SERUM (BLOOD) Lab Routine Megaloblastic anemia due to vitamin B12 deficiency Elevated sed rate High total serum IgM Chronic fatigue and malaise JOSE RAFAEL (obstructive sleep apnea) Expected: 10/23/2022, Expires: 12/23/2022 [facility] Work Phone: Comment on above: Expected: 10/23/2022, Expires: Start: 10-23-2022 End: 12-23-2022 PROT ELECT SERUM WITH DANA AND INTERP PROT ELECT SERUM WITH DANA AND INTERP Lab Routine Megaloblastic anemia due to vitamin B12 deficiency Elevated sed rate High total serum IgM Chronic fatigue and malaise JOSE RAFEAL (obstructive sleep apnea) Expected: 10/23/2022, Expires: 12/23/2022 [facility] Work Phone: Comment on above: Expected: 10/23/2022, Expires: Start: 09-19-2022 End: 08-20-2023 CBC panel - Blood by Automated count CBC Lab Routine Anemia of chronic disease Expected: 09/19/2022 (Approximate), Expires: 08/20/2023 [facility] Work Phone: Comment on above: Expected: 09/19/2022 (Approximate), Expi res: 08/20/2023 Start: 09-19-2022 End: 08-20-2023 Comprehensive metabolic 2000 panel - Serum or Plasma COMP METABOLIC PANEL Lab Routine Elevated LFTs Expected: 09/19/2022 (Approximate), Expires: 08/20/2023 [facility] Work Phone: Comment on above: Expected: 09/19/2022 (Approximate), Expi res: 08/20/2023 Start: 09-19-2022 End: 11-19-2022 TPMT PHENOTYPE/ENZYME ACTIVITY TPMT PHENOTYPE/ENZYME ACTIVITY Lab Routine 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 goods drier 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 Expected: 09/19/2022 (Approximate), Expires: 11/19/2022 [facility] Work Phone: Comment on above: Expected: 09/19/2022 (Approximate), Expi res: 11/19/2022 Start: 08-28-2022 End: 10-28-2022 25-hydroxyvitamin D3 [Mass/volume] in Serum or Plasma VITAMIN D 25 HYDROXY Lab Routine Megaloblastic anemia due to vitamin B12 deficiency Elevated sed rate High total serum IgM Chronic fatigue and malaise Expected: 08/28/2022 (Approximate), Expires: 10/28/2022 [facility] Work Phone: Comment on above: Expected: 08/28/2022 (Approximate), Expi res: 10/28/2022 Start: 08-28-2022 End: 07-26-2023 [id number] [Mass/volume] in Serum or Plasma B2 MICROGLOBULIN B Lab Routine Megaloblastic anemia due to vitamin B12 deficiency Elevated sed rate High total serum IgM Chronic fatigue and malaise Expected: 08/28/2022 (Approximate), Expires: 07/26/2023 [facility] Work Phone: Comment on above: Expected: 08/28/2022 (Approximate), Expi res: 07/26/2023 Start: 08-28-2022 End: 10-28-2022 C reactive protein [Mass/volume] in Serum or Plasma C-REACTIVE PROTEIN (CRP) Lab Routine Megaloblastic anemia due to vitamin B12 deficiency Elevated sed rate High total serum IgM Chronic fatigue and malaise Expected: 08/28/2022 (Approximate), Expires: 10/28/2022 [facility] Work Phone: Comment on above: Expected: 08/28/2022 (Approximate), Expi res: 10/28/2022 Start: 08-28-2022 End: 07-26-2023 Calcium.ionized [Moles/volume] in Blood CALCIUM IONIZED BLOOD Lab Routine Megaloblastic anemia due to vitamin B12 deficiency Elevated sed rate High total serum IgM Chronic fatigue and malaise Expected: 08/28/2022 (Approximate), Expires: 07/26/2023 [facility] Work Phone: Comment on above: Expected: 08/28/2022 (Approximate), Expi res: 07/26/2023 Start: 08-28-2022 End: 07-26-2023 CBC W Auto Differential panel - Blood CBC + DIFF Lab Routine Megaloblastic anemia due to vitamin B12 deficiency Elevated sed rate High total serum IgM Chronic fatigue and malaise Expected: 08/28/2022 (Approximate), Expires: 07/26/2023 [facility] Work Phone: Comment on above: Expected: 08/28/2022 (Approximate), Expi res: 07/26/2023 Start: 08-28-2022 End: 10-28-2022 Cobalamin (Vitamin B12) [Mass/volume] in Serum or Plasma VITAMIN B12 BLOOD Lab Routine Megaloblastic anemia due to vitamin B12 deficiency Elevated sed rate High total serum IgM Chronic fatigue and malaise Expected: 08/28/2022 (Approximate), Expires: 10/28/2022 [facility] Work Phone: Comment on above: Expected: 08/28/2022 (Approximate), Expi res: 10/28/2022 Start: 08-28-2022 End: 07-26-2023 Comprehensive metabolic 2000 panel - Serum or Plasma COMP METABOLIC PANEL Lab Routine Megaloblastic anemia due to vitamin B12 deficiency Elevated sed rate High total serum IgM Chronic fatigue and malaise Expected: 08/28/2022 (Approximate), Expires: 07/26/2023 [facility] Work Phone: Comment on above: Expected: 08/28/2022 (Approximate), Expi res: 07/26/2023 Start: 08-28-2022 End: 10-28-2022 Erythrocyte sedimentation rate SED RATE WESTERGREN Lab Routine Megaloblastic anemia due to vitamin B12 deficiency Elevated sed rate High total serum IgM Chronic fatigue and malaise Expected: 08/28/2022 (Approximate), Expires: 10/28/2022 [facility] Work Phone: Comment on above: Expected: 08/28/2022 (Approximate), Expi res: 10/28/2022 Start: 08-28-2022 End: 10-28-2022 KAPPA/FARMER,FREE,SER KAPPA/FARMER,FREE,SER Lab Routine Megaloblastic anemia due to vitamin B12 deficiency Elevated sed rate High total serum IgM Chronic fatigue and malaise Expected: 08/28/2022 (Approximate), Expires: 10/28/2022 [facility] Work Phone: Comment on above: Expected: 08/28/2022 (Approximate), Expi res: 10/28/2022 Start: 08-28-2022 End: 07-26-2023 Lactate dehydrogenase [Enzymatic activity/volume] in Serum or Plasma LD LACTATE DEHYDRO Lab Routine Megaloblastic anemia due to vitamin B12 deficiency Elevated sed rate High total serum IgM Chronic fatigue and malaise Expected: 08/28/2022 (Approximate), Expires: 07/26/2023 [facility] Work Phone: Comment on above: Expected: 08/28/2022 (Approximate), Expi res: 07/26/2023 Start: 08-28-2022 End: 07-26-2023 MONOCLONAL PROTEIN, SERUM (BLOOD) MONOCLONAL PROTEIN, SERUM (BLOOD) Lab Routine Megaloblastic anemia due to vitamin B12 deficiency Elevated sed rate High total serum IgM Chronic fatigue and malaise Expected: 08/28/2022 (Approximate), Expires: 07/26/2023 [facility] Work Phone: Comment on above: Expected: 08/28/2022 (Approximate), Expi res: 07/26/2023 Start: 08-28-2022 End: 07-26-2023 Phosphate [Mass/volume] in Serum or Plasma PHOSPHORUS INORGANIC Lab Routine Megaloblastic anemia due to vitamin B12 deficiency Elevated sed rate High total serum IgM Chronic fatigue and malaise Expected: 08/28/2022 (Approximate), Expires: 07/26/2023 [facility] Work Phone: Comment on above: Expected: 08/28/2022 (Approximate), Expi res: 07/26/2023 Start: 08-28-2022 End: 07-26-2023 PROTEIN ELECTROPHORESIS SERUM W/INTERP PROTEIN ELECTROPHORESIS SERUM W/INTERP Lab Routine Megaloblastic anemia due to vitamin B12 deficiency Elevated sed rate High total serum IgM Chronic fatigue and malaise Expected: 08/28/2022 (Approximate), Expires: 07/26/2023 [facility] Work Phone: Comment on above: Expected: 08/28/2022 (Approximate), Expi res: 07/26/2023 Start: 08-28-2022 End: 07-26-2023 Urate [Mass/volume] in Serum or Plasma URIC ACID BLOOD Lab Routine Megaloblastic anemia due to vitamin B12 deficiency Elevated sed rate High total serum IgM Chronic fatigue and malaise Expected: 08/28/2022 (Approximate), Expires: 07/26/2023 [facility] Work Phone: Comment on above: Expected: 08/28/2022 (Approximate), Expi res: 07/26/2023 Start: 07-15-2022 End: 05-20-2023 [id number] [Mass/volume] in Serum or Plasma B2 MICROGLOBULIN B Lab Routine High total serum IgM Expected: 07/15/2022 (Approximate), Expires: 05/20/2023 [facility] Work Phone: Comment on above: Expected: 07/15/2022 (Approximate), Expi res: 05/20/2023 Start: 07-15-2022 End: 05-20-2023 Calcium.ionized [Moles/volume] in Blood CALCIUM IONIZED BLOOD Lab Routine High total serum IgM Expected: 07/15/2022 (Approximate), Expires: 05/20/2023 [facility] Work Phone: Comment on above: Expected: 07/15/2022 (Approximate), Expi res: 05/20/2023 Start: 07-15-2022 End: 05-20-2023 CBC W Auto Differential panel - Blood CBC + DIFF Lab Routine High total serum IgM Expected: 07/15/2022 (Approximate), Expires: 05/20/2023 [facility] Work Phone: Comment on above: Expected: 07/15/2022 (Approximate), Expi res: 05/20/2023 Start: 07-15-2022 End: 05-20-2023 Comprehensive metabolic 2000 panel - Serum or Plasma COMP METABOLIC PANEL Lab Routine High total serum IgM Expected: 07/15/2022 (Approximate), Expires: 05/20/2023 [facility] Work Phone: Comment on above: Expected: 07/15/2022 (Approximate), Expi res: 05/20/2023 Start: 07-15-2022 End: 09-14-2022 KAPPA/FARMER,FREE,SER KAPPA/FARMER,FREE,SER Lab Routine High total serum IgM Expected: 07/15/2022 (Approximate), Expires: 09/14/2022 [facility] Work Phone: Comment on above: Expected: 07/15/2022 (Approximate), Expi res: 09/14/2022 Start: 07-15-2022 End: 05-20-2023 Lactate dehydrogenase [Enzymatic activity/volume] in Serum or Plasma LD LACTATE DEHYDRO Lab Routine High total serum IgM Expected: 07/15/2022 (Approximate), Expires: 05/20/2023 [facility] Work Phone: Comment on above: Expected: 07/15/2022 (Approximate), Expi res: 05/20/2023 Start: 07-15-2022 End: 05-20-2023 MONOCLONAL PROTEIN, SERUM (BLOOD) MONOCLONAL PROTEIN, SERUM (BLOOD) Lab Routine High total serum IgM Expected: 07/15/2022 (Approximate), Expires: 05/20/2023 [facility] Work Phone: Comment on above: Expected: 07/15/2022 (Approximate), Expi res: 05/20/2023 Start: 07-15-2022 End: 05-20-2023 Phosphate [Mass/volume] in Serum or Plasma PHOSPHORUS INORGANIC Lab Routine High total serum IgM Expected: 07/15/2022 (Approximate), Expires: 05/20/2023 [facility] Work Phone: Comment on above: Expected: 07/15/2022 (Approximate), Expi res: 05/20/2023 Start: 07-15-2022 End: 05-20-2023 PROTEIN ELECTROPHORESIS SERUM W/INTERP PROTEIN ELECTROPHORESIS SERUM W/INTERP Lab Routine High total serum IgM Expected: 07/15/2022 (Approximate), Expires: 05/20/2023 [facility] Work Phone: Comment on above: Expected: 07/15/2022 (Approximate), Expi res: 05/20/2023 Start: 07-15-2022 End: 05-20-2023 Urate [Mass/volume] in Serum or Plasma URIC ACID BLOOD Lab Routine High total serum IgM Expected: 07/15/2022 (Approximate), Expires: 05/20/2023 [facility] Work Phone: Comment on above: Expected: 07/15/2022 (Approximate), Expi res: 05/20/2023 Start: 06-05-2022 End: 03-05-2023 25-hydroxyvitamin D3 [Mass/volume] in Serum or Plasma VITAMIN D 25 HYDROXY Lab Routine Vitamin D deficiency Expected: 06/05/2022 (Approximate), Expires: 03/05/2023 [facility] Work Phone: Comment on above: Expected: 06/05/2022 (Approximate), Expi res: 03/05/2023 Start: 06-05-2022 End: 03-05-2023 C reactive protein [Mass/volume] in Serum or Plasma C-REACTIVE PROTEIN (CRP) Lab Routine Elevated sed rate Elevated C-reactive protein (CRP) Expected: 06/05/2022 (Approximate), Expires: 03/05/2023 [facility] Work Phone: Comment on above: Expected: 06/05/2022 (Approximate), Expi res: 03/05/2023 Start: 06-05-2022 End: 03-05-2023 Cobalamin (Vitamin B12) [Mass/volume] in Serum or Plasma VITAMIN B12 BLOOD Lab Routine Vitamin B12 deficiency Expected: 06/05/2022 (Approximate), Expires: 03/05/2023 [facility] Work Phone: Comment on above: Expected: 06/05/2022 (Approximate), Expi res: 03/05/2023 Start: 06-05-2022 End: 03-05-2023 Erythrocyte sedimentation rate SED RATE WESTERGREN Lab Routine Elevated sed rate Elevated C-reactive protein (CRP) Expected: 06/05/2022 (Approximate), Expires: 03/05/2023 [facility] Work Phone: Comment on above: Expected: 06/05/2022 (Approximate), Expi res: 03/05/2023 Start: 05-06-2022 End: 03-18-2023 [id number] [Mass/volume] in Serum or Plasma B2 MICROGLOBULIN B Lab Routine Megaloblastic anemia due to vitamin B12 deficiency High total serum IgM Expected: 05/06/2022 (Approximate), Expires: 03/18/2023 [facility] Work Phone: Comment on above: Expected: 05/06/2022 (Approximate), Expi res: 03/18/2023 Start: 05-06-2022 End: 03-18-2023 Calcium.ionized [Moles/volume] in Blood CALCIUM IONIZED BLOOD Lab Routine Megaloblastic anemia due to vitamin B12 deficiency High total serum IgM Expected: 05/06/2022 (Approximate), Expires: 03/18/2023 [facility] Work Phone: Comment on above: Expected: 05/06/2022 (Approximate), Expi res: 03/18/2023 Start: 05-06-2022 End: 03-18-2023 CBC W Auto Differential panel - Blood CBC + DIFF Lab Routine Megaloblastic anemia due to vitamin B12 deficiency High total serum IgM Expected: 05/06/2022 (Approximate), Expires: 03/18/2023 [facility] Work Phone: Comment on above: Expected: 05/06/2022 (Approximate), Expi res: 03/18/2023 Start: 05-06-2022 End: 03-18-2023 Comprehensive metabolic 2000 panel - Serum or Plasma COMP METABOLIC PANEL Lab Routine Megaloblastic anemia due to vitamin B12 deficiency High total serum IgM Expected: 05/06/2022 (Approximate), Expires: 03/18/2023 [facility] Work Phone: Comment on above: Expected: 05/06/2022 (Approximate), Expi res: 03/18/2023 Start: 05-06-2022 End: 03-18-2023 Ferritin [Mass/volume] in Serum or Plasma FERRITIN BLD Lab Routine Megaloblastic anemia due to vitamin B12 deficiency High total serum IgM Expected: 05/06/2022 (Approximate), Expires: 03/18/2023 [facility] Work Phone: Comment on above: Expected: 05/06/2022 (Approximate), Expi res: 03/18/2023 Start: 05-06-2022 End: 03-18-2023 Iron and Iron binding capacity panel - Serum or Plasma IRON + TIBC Lab Routine Megaloblastic anemia due to vitamin B12 deficiency High total serum IgM Expected: 05/06/2022 (Approximate), Expires: 03/18/2023 [facility] Work Phone: Comment on above: Expected: 05/06/2022 (Approximate), Expi res: 03/18/2023 Start: 05-06-2022 End: 03-18-2023 Lactate dehydrogenase [Enzymatic activity/volume] in Serum or Plasma LD LACTATE DEHYDRO Lab Routine Megaloblastic anemia due to vitamin B12 deficiency High total serum IgM Expected: 05/06/2022 (Approximate), Expires: 03/18/2023 [facility] Work Phone: Comment on above: Expected: 05/06/2022 (Approximate), Expi res: 03/18/2023 Start: 05-06-2022 End: 03-18-2023 MONOCLONAL PROTEIN, SERUM (BLOOD) MONOCLONAL PROTEIN, SERUM (BLOOD) Lab Routine Megaloblastic anemia due to vitamin B12 deficiency High total serum IgM Expected: 05/06/2022 (Approximate), Expires: 03/18/2023 [facility] Work Phone: Comment on above: Expected: 05/06/2022 (Approximate), Expi res: 03/18/2023 Start: 05-06-2022 End: 03-18-2023 Phosphate [Mass/volume] in Serum or Plasma PHOSPHORUS INORGANIC Lab Routine Megaloblastic anemia due to vitamin B12 deficiency High total serum IgM Expected: 05/06/2022 (Approximate), Expires: 03/18/2023 [facility] Work Phone: Comment on above: Expected: 05/06/2022 (Approximate), Expi res: 03/18/2023 Start: 05-06-2022 End: 03-18-2023 PROTEIN ELECTROPHORESIS SERUM W/INTERP PROTEIN ELECTROPHORESIS SERUM W/INTERP Lab Routine Megaloblastic anemia due to vitamin B12 deficiency High total serum IgM Expected: 05/06/2022 (Approximate), Expires: 03/18/2023 [facility] Work Phone: Comment on above: Expected: 05/06/2022 (Approximate), Expi res: 03/18/2023 Start: 05-06-2022 End: 03-18-2023 Urate [Mass/volume] in Serum or Plasma URIC ACID BLOOD Lab Routine Megaloblastic anemia due to vitamin B12 deficiency High total serum IgM Expected: 05/06/2022 (Approximate), Expires: 03/18/2023 [facility] Work Phone: Comment on above: Expected: 05/06/2022 (Approximate), Expi res: 03/18/2023 Start: 04-05-2022 COVID-19 VACCINE (5 - Pfizer risk series) COVID-19 VACCINE (5 - Pfizer risk series) [facility] Start: 03-09-2022 End: 05-09-2022 Hemoglobin A1c in Blood HGB A1C Lab Routine Elevated glucose Expected: 03/09/2022, Expires: 05/09/2022 [facility] Work Phone: Comment on above: Expected: 03/09/2022, Expires: Start: 02-24-2022 End: 04-26-2022 BARTONELLA AB PANEL BARTONELLA AB PANEL Lab Routine Swelling of lymph nodes Expected: 02/24/2022, Expires: 04/26/2022 [facility] Work Phone: Comment on above: Expected: 02/24/2022, Expires: 2 Start: 02-24-2022 End: 04-26-2022 BRUCELLA AB TOTAL BRUCELLA AB TOTAL Lab Routine Swelling of lymph nodes Expected: 02/24/2022, Expires: 04/26/2022 [facility] Work Phone: Comment on above: Expected: 02/24/2022, Expires: 2 Start: 02-24-2022 End: 04-26-2022 Cryptococcus sp Ag [Presence] in Unspecified specimen by Latex agglutination CRYPTOCOCCUS AG DET Microbiology Routine Swelling of lymph nodes Expected: 02/24/2022, Expires: 04/26/2022 [facility] Work Phone: Comment on above: Expected: 02/24/2022, Expires: 2 Start: 02-24-2022 End: 04-26-2022 HISTOPLASMA AG URINE HISTOPLASMA AG URINE Lab Routine Swelling of lymph nodes Expected: 02/24/2022, Expires: 04/26/2022 [facility] Work Phone: Comment on above: Expected: 02/24/2022, Expires: 2 Start: 02-24-2022 End: 04-26-2022 HIV 1 RNA [#/volume] (viral load) in Serum or Plasma by YESSI with probe detection HIV RNA VIRAL LOAD Lab Routine Swelling of lymph nodes Expected: 02/24/2022, Expires: 04/26/2022 [facility] Work Phone: Comment on above: Expected: 02/24/2022, Expires: 2 Start: 02-24-2022 End: 04-26-2022 SYPHILIS TOTAL W/REFLEX SYPHILIS TOTAL W/REFLEX Lab Routine Swelling of lymph nodes Expected: 02/24/2022, Expires: 04/26/2022 [facility] Work Phone: Comment on above: Expected: 02/24/2022, Expires: 2 Start: 01-22-2022 Influenza vaccination [facility] Start: 08-24-2021 COVID-19 VACCINE (4 - Booster for Pfizer series) COVID-19 VACCINE (4 - Booster for Pfizer series) [facility] Start: 01-22-2021 Influenza vaccination Flu vaccine (Season Ended) [employer] Phone: Start: 2020 Lipid panel Lipid screen [facility] Phone: Start: 2020 Mammography [facility] Start: 2020 Screening for malignant neoplasm of breast [facility] Start: 2010 HPV TESTING HPV TESTING [facility] Start: 2010 Screening for malignant neoplasm of cervix [facility] Start: 10-05-2007 HPV Vaccine (1 - Risk 3-dose SCDM series) HPV Vaccine (1 - Risk 3-dose SCDM series) [facility] Start: 2002 DTaP/Tdap/Td Vaccines (1 - Tdap) DTaP/Tdap/Td Vaccines (1 - Tdap) [facility] Start: 2001 PAP TESTING PAP TESTING [facility] Start: 2001 Screening for malignant neoplasm of cervix [facility] Start: 10-05-1999 DTaP,Tdap and Td Vaccines (1 - Tdap) DTaP,Tdap and Td Vaccines (1 - Tdap) [facility] Start: 10-05-1999 DTaP/Tdap/Td vaccine (1 - Tdap) DTaP/Tdap/Td vaccine (1 - Tdap) [facility] Phone: Start: 10-05-1999 Hepatitis B Vaccine (1 of 3 - 19+ 3-dose series) Hepatitis B Vaccine (1 of 3 - 19+ 3-dose series) [facility] Start: 10-05-1999 Hepatitis B Vaccines (1 of 3 - 19+ 3-dose series) Hepatitis B Vaccines (1 of 3 - 19+ 3-dose series) [facility] Start: 10-05-1999 Pneumococcal vaccination Pneumococcal Vaccine (1 of 2 - PCV) [facility] Start: 10-05-1999 Pneumococcal Vaccine: Pediatrics and At-Risk Adult Patients (1 of 2 - PCV) Pneumococcal Vaccine: Pediatrics and At-Risk Adult Patients (1 of 2 - PCV) [facility] Start: 10-05-1999 SHINGRIX VACCINE (1 of 2) SHINGRIX VACCINE (1 of 2) [facility] Start: 10-05-1999 Urine microalbumin profile [facility] Start: 10-05-1999 Zoster Vaccines (1 of 2) Zoster Vaccines (1 of 2) [facility] Start: 1998 Adult BMI Follow Up Plan Adult BMI Follow Up Plan [facility] Start: 1998 Adult BMI Screening Adult BMI Screening [facility] Start: 1998 Anxiety Screening Anxiety Screening [facility] Start: 1998 Hepatitis C screening Hepatitis C Screening [facility] Start: 1998 HIV SCREENING HIV SCREENING [facility] Start: 1998 HIV screening HIV Screening [facility] Start: 10-05-1995 HIV screening HIV screen [facility] [employer] Phone: Start: 1993 Varicella vaccination Varicella Vaccines (1 of 2 - 13+ 2-dose series) [facility] Start: 1992 COVID-19 Vaccine (1) COVID-19 Vaccine (1) [facility] Phone: Start: 1992 Depression Screening Depression Screening [facility] Start: 1992 Tobacco Screening Tobacco Screening [facility] Start: 10-05-1991 Screening for malignant neoplasm of cervix Cervical Cancer Screening [facility] Start: 1986 PNEUMOCOCCAL (1 - PCV) PNEUMOCOCCAL (1 - PCV) [facility] Start: 1986 Pneumococcal vaccination [facility] Start: 1986 Pneumococcal Vaccine: Pediatrics (0 to 5 Years) and At-Risk Patients (6 to 64 Years) (1 - PCV) Pneumococcal Vaccine: Pediatrics (0 to 5 Years) and At-Risk Patients (6 to 64 Years) (1 - PCV) [facility] Start: 1981 MMR Vaccines (1 of 1 - Standard series) MMR Vaccines (1 of 1 - Standard series) [facility] Start: 1981 Varicella vaccination Varicella Vaccines (1 of 2 - 2-dose childhood series) [facility] Start: 1981 Varicella vaccine (1 of 2 - 2-dose childhood series) Varicella vaccine (1 of 2 - 2-dose childhood series) [facility] Phone: Start: 1980 HEPATITIS B (1 of 3 - 3-dose series) HEPATITIS B (1 of 3 - 3-dose series) [facility] Start: 1980 Hepatitis B Vaccine (1 of 3 - 3-dose series) Hepatitis B Vaccine (1 of 3 - 3-dose series) [facility] Start: 1980 Hepatitis B Vaccines (1 of 3 - 3-dose series) Hepatitis B Vaccines (1 of 3 - 3-dose series) [facility] Start: 1980 Hepatitis C screening Hepatitis C screen [facility] Phone: Start: 1980 HIV screening HIV Screening [facility] Start: 1980 HPV Vaccine: Recommended Based On Risk HPV Vaccine: Recommended Based On Risk [facility] Start: 1980 Lipid panel Lipid Panel [facility] Start: 1980 Screening for osteoporosis Bone Density Scan [facility] Start: 1980 Tobacco Counseling Tobacco Counseling [facility] Start: 1980 Yearly Adult Physical Yearly Adult Physical [facility] 25-hydroxyvitamin D3 [Mass/volume] in Serum or Plasma VITAMIN D 25 HYDROXY Lab Routine Vitamin D deficiency 01/11/2025 1:48 PM EDT [facility] BLOOD TB SCREEN BLOOD TB SCREEN Lab Routine Screening-pulmonary TB 01/11/2025 1:48 PM EDT [facility] C reactive protein [Mass/volume] in Serum or Plasma C-REACTIVE PROTEIN Lab Routine Elevated sed rate Elevated C-reactive protein (CRP) 01/11/2025 1:48 PM EDT [facility] Cardiovascular funct ion eval w/tilt table w/mntr TILT TABLE EVALUATION Cardiology Routine POTS (postural orthostatic tachycardia syndrome) Ordered: 03/09/2022 [facility]omi Phone: Comment on above: Ordered: 03/09/2022 CBC W Auto Different ial panel - Blood CBC and differential Lab Routine Menorrhagia with regular cycle Ordered: 03/23/2024 [facility] Work Phone: Comment on above: Ordered: 03/23/2024 Chronic hepatitis differentiation between hepatitis B and C virus panel - Serum or Plasma HEP REMOTE PANEL BL Lab Routine Elevated LFTs 01/11/2025 1:48 PM EDT [facility] Cobalamin (Vitamin B 12) [Mass/volume] in Serum or Plasma VITAMIN B12 Lab Routine Vitamin B12 deficiency 01/11/2025 1:48 PM EDT [facility] CT Abdomen W contrast IV [facility] End: 03-05-2024 DXA-AXIAL SKELETON DXA-AXIAL SKELETON Radiology Routine Steroid-induced osteoporosis 1 Occurrences starting 02/04/2023 until 03/05/2024 [facility] Work Phone: Comment on above: 1 Occurrences starting 02/04/2023 until 03/05/2024 End: 03-05-2024 DXA-FOREARM SKELETON DXA-FOREARM SKELETON Radiology Routine Steroid-induced osteoporosis 1 Occurrences starting 02/04/2023 until 03/05/2024 [facility] Work Phone: Comment on above: 1 Occurrences starting 02/04/2023 until 03/05/2024 ECG 12 Lead ECG 12 Lead ECG Routine Irregular heart rate 06/09/2023 8:28 AM [facility] Work Phone: Erythrocyte sediment ation rate SEDIMENTATION RATE, WESTERGREN Lab Routine Elevated sed rate Elevated C-reactive protein (CRP) 01/11/2025 1:48 PM EDT [facility] Work Phone: hCG, quantitative, hCG, quantitative, Lab Routine Menorrhagia with regular cycle Ordered: 03/23/2024 [facility] Comment on above: Ordered: 03/23/2024 Hemoglobin A1c/Hemoglobin.total in Blood Hemoglobin A1c Lab Routine Menorrhagia with regular cycle Ordered: 03/23/2024 [facility] Comment on above: Ordered: 03/23/2024 Hepatitis B virus co re Ab [Presence] in Serum HEPATITIS B CORE ANTIBODY TOTAL Lab Routine Elevated LFTs 01/11/2025 1:48 PM EDT [facility] Hepatitis B virus galarza rface Ab [Presence] in Serum HEPATITIS B SURFACE ANTIBODY Lab Routine Elevated LFTs 01/11/2025 1:48 PM EDT [facility] Hepatitis B virus galarza rface Ag [Presence] in Serum HEPATITIS B SURFACE ANTIGEN Lab Routine Elevated LFTs 01/11/2025 1:48 PM EDT [facility] Hepatitis C virus Ab [Presence] in Serum HEPATITIS C ANTIBODY IA WITH CONFIRMATION Lab Routine Elevated LFTs 01/11/2025 1:48 PM EDT [facility] End: 03-09-2023 HOME SLEEP APNEA TEST (HSAT) HOME SLEEP APNEA TEST (HSAT) Procedures Routine Somnolence, daytime Snoring 1 Occurrences starting 03/09/2022 until 03/09/2023 [facility] Work Phone: Comment on above: 1 Occurrences starting 03/09/2022 until 03/09/2023 HYDROGEN BREATH TEST B/O HYDROGE N BREATH TEST B/O Procedures Routine Diarrhea, unspecified type Abdominal pressure Ordered: 06/14/2024 [facility] Work Phone: Comment on above: Ordered: 06/14/2024 Oxygen therapy [[facility] Data Set] Initiate Oxygen Therapy Protocol Respiratory Care Routine Daily until discontinued starting 10/07/2020 [facility] Work Phone: Comment on above: Daily until discontinued starting 2020 Patient Education Know your Meds Jorge Luis Non Diagnostic Block [facility] Work Phone: Patient referral [facility] Work Phone: End: 03-04-2023 Polysomnogram POLYSOMNOGRAM (PSG) Procedures Routine Somnolence, daytime Snoring 1 Occurrences starting 03/04/2022 until 03/04/2023 [facility] Work Phone: Comment on above: 1 Occurrences starting 03/04/2022 until 03/04/2023 Prothrombin time (PT ) in Blood by Coagulation assay Protime-INR Lab Routine Menorrhagia with regular cycle Ordered: 03/23/2024 [facility] Comment on above: Ordered: 03/23/2024 THIN PREP TIS PAP AN D HR HPV DNA THIN PREP TIS PAP AND HR HPV DNA Pathology and Cytology Routine Well woman exam with routine gynecological exam Ordered: 06/06/2024 [facility] Comment on above: Ordered: 06/06/2024 Thyrotropin [Units/v olume] in Serum or Plasma TSH Lab Routine Menorrhagia with regular cycle Ordered: 03/23/2024 [facility] Comment on above: Ordered: 03/23/2024 Thyroxine (T4) free [Mass/volume] in Serum or Plasma T4, free Lab Routine Menorrhagia with regular cycle Ordered: 03/23/2024 [facility] Comment on above: Ordered: 03/23/2024 XR Thoracic spine 3 Views [facility] Immunizations Immunization Date Immunization Notes Care Provider Reginaldo [email or web address] 02-23-2023 COVID-19 vaccine, ag e 12+ yr, 2022- season ([employer]) Lynne Ni MD Work Phone: [facility] 02-08-2022 COVID-19 mRNA Bivale nt Booster (Attention Point) Gay Enciso [employer]Y CAR [employer]IVER-C Work Phone: [facility] 05-26-2021 COVID-19 mRNA, Comirnaty (Pfizer) Gay Enciso [employer] Work Phone: [facility] 10-19-2020 COVID-19 mRNA, Comirnaty (Pfizer) Gay Enciso [employer] Work Phone: [facility] 09-28-2020 COVID-19 mRNA, Comirnaty (Pfizer) Gay GALEANO Work Phone: [facility] Payers Date Payer Category Payer Medicaid HMO [employer] [id number] 2024 Self-pay [id number] 2017 Medicaid (Managed Care) [employer] [id number] 2017 Private Health Insurance [facility] MEDICAID [id number] 2017 Unknown [employer] [id number] 2017-Present [address] [place] [address] [id number] 2009 Medicaid [employer] [id number] 2009-Present [phone] [address] [place] [address] Medicaid [id number] 2009 Medicaid [id number]. [id number] 1980 Unknown [id number] 2.16.840.1.160650.3.579.2. 185 1980 Unknown [id number] 2.16.840.1.187916.3.579.2. 175 1980 Unknown [id number] 2.16.840.1.724788.3.579.2. 593 1980 Unknown [id number] 2.16.840.1.840777.3.579.2. 593 1980 Unknown [id number] 2.16.840.1.293428.3.579.2. 593 1980 Unknown [id number] 2.16.840.1.486359.3.579.2. 593 1980 Unknown [id number] 2.16.840.1.211263.3.579.2. 593 1980 Unknown [id number] 2.16.840.1.523477.3.579.2. 593 1980 Unknown [id number] 2.16.840.1.355974.3.579.2. 593 1980 Unknown [id number] 2.16.840.1.484880.3.579.2. 59 1980 Unknown [id number] 2.16.840.1.056697.3.579.2. 59 1980 Unknown [id number] 2.16.840.1.003265.3.579.2. 1980 Unknown [id number] 2.16.840.1.278311.3.579.2. 1243 1980 Unknown [id number] 2.16840.1.711670.3.579.2. 1243 1980 Unknown [id number] 2.16840.1.407398.3.579.2. 1258 1980 Unknown [id number] 2.840.1.389379.3.579.2. 1258 1980 Unknown [id number] 2.840.1.005616.3.579.2. 1258 1980 Unknown [id number] 2.840.1.692702.3.579.2. 1258 1980 Unknown [id number] 2.840.1.490409.3.579.2. 1258 1980 Unknown [id number] 2.840.1.439599.3.579.2. 1258 1980 Unknown [id number] .840.1.468076.3.579.2. 1258 1980 Unknown [id number] 2.840.1.911748.3.579.2. 1258 1980 Unknown [id number] 2.840.1.166902.3.579.2. 1258 1980 Unknown [id number] .16840.1.101841.3.579.2. 1258 1959 Unknown [id number] 1959 Unknown [id number] Unknown [id number] 2.16840.1.983905.3.579.2. 531 Unknown [id number] .840.1.795252.3.579.2. 531 Unknown [id number] 2.16.840.1.150535.3.579.2. 531 Unknown [id number] 2.16.840.1.248187.3.579.2. 531 Social History Date Type Detail Facility Start: 05-24-1995 End: 11-08-2023 Tobacco smoking status ORIS Current every day smoker [facility] Start: 10-07-2020 End: 11-08-2023 Tobacco use and exposure Never used [employer] Start: 10-07-2020 End: 02-14-2025 Alcohol intake Lifetime non-drinker (finding) [facility] Phone: Start: 10-07-2020 History SDOH Alcohol Frequency 1 [facility] Phone: Start: 1980 Sex Assigned At Not on file [facility] [employer] Phone: Start: 02-22-2022 End: 07-26-2024 Exposure to SARS-CoV-2 (event) Not sure [employer] Start: 05-24-1995 History of tobacco use Cigarette Smo ker [facility] Start: 05-31-2014 End: 11-23-2024 Cigarettes smoked current (pack per day) - Reported 1 [facility] Start: 10-24-2021 End: 11-29-2024 Alcohol intake Current non-drinker of alcohol (finding) [facility] Start: 10-14-2021 End: 10-24-2021 Exposure to SARS-CoV-2 (event) Unable to assess [facility] Start: 10-22-2022 End: 11-23-2024 Sex Assigned At [facility] Start: 05-31-2014 Adult Depression Screening Assessment 1 [facility] Start: 10-19-2022 Tobacco Comment Current smoker , everyday, 11-20 cigarettes/day [facility] Start: 05-31-2023 Alcohol Comment Caffeine intak e : > 4 cups per day [facility] Start: 08-19-2016 End: 12-16-2023 Tobacco smoking status NHIS Smoker (finding) [facility] Start: 1980 Sex Assigned At Female [facility] Start: 07-02-2016 End: 08-22-2024 Sex Female (finding) [facility] [employer] Start: 02-21-2024 Gender identity Identifies as female gender (finding) [facility] Goals Date Patient Goal Desired Activity /State Functional Status Date Assessment Result Facility 12-25-2014 Are you deaf, or do you have serious difficulty hearing No 12/25/2014 11:14 AM EDT Chichi Zarco Ma No [facility] 12-25-2014 Are you blind, or do you have serious difficulty seeing, even when wearing glasses No 12/25/2014 11:14 AM EDT Chichi Zarco Ma No [facility] 12-25-2014 Do you have serious difficulty walking or climbing stairs Yes 12/25/2014 11:14 AM EDT Chichi Zarco Ma Yes [facility] 12-25-2014 Do you have difficul ty dressing or bathing Yes 12/25/2014 11:14 AM EDT Chichi Zarco Ma Yes [facility] 12-25-2014 Because of a physica l, mental, or emotional condition, do you have difficulty doing errands alone such as visiting a physician's office or shopping No 12/25/2014 11:14 AM EDT Chichi Zarco Ma No [facility] Mental Status Date Assessment Result Facility 12-25-2014 Because of a physica l, mental, or emotional condition, do you have serious difficulty concentrating, remembering, or making decisions No 12/25/2014 11:14 AM EDT Chichi Zarco Ma No [facility] Clinical Notes 05-31-2014 to 02-14-2025 Bernabe English MD - 02/14/2025 3:20 PM Elena Salguero RN - 01/24/2025 3:40 PM EDTTelephone Encounter - Merry Chairez RN - 01/18/2025 5:09 PM Jhonathan Pop RN - 12/14/2024 3:58 PM EDT Note Date & Type Note Facility 02-14-2025 History of Presen t illness Narrative Follow up Diagnosis: Hidradenitis Location: generalized Last [...] treatment with ILK today. ILK today, see [facility] for details. Consent: The risks and benefits of intralesional kenalog were discussed prior to the procedure. Specifically, the risk of skin atrophy was reviewed. It was also emphasized that multiple treatments may be necessary. Verbal consent was obtained from the patient/parent. Method: See [facility] for details on administration. 0.1 ml of [...] Visit: as scheduled documented in this encounter [facility] 01-24-2025 Note [facility] 01-24-2025 History of Presen t illness Narrative Pt did not receive B12 injection today. Pt called & agreeable to receive it when she returns in 2 weeks for her Benlysta infusion. Pharmacy aware and moving date. Elena Alfonso, RN documented in this encounter [facility] 01-18-2025 Telephone encounter Note MC message read by patient . [facility] 01-18-2025 Miscellaneous Notes MC message read by patient . Please Call patient if MyChart note not read to review results/released to My Chart if tests completed at [facility]: High glucose, one borderline inflammatory test and wbc- care per primary care provider. Improved/stable rest of labs. Stay on vitamin D script once a week with food. Recheck nonfasting labs in 3months, orders have been placed. Happy to further review and discuss at follow up visit. Thank you. 01/11/25 high glucose 221, alt 42, wbc 12.61, esr 34;normal rest of cbc, cmp, crp <0.3, vitamin D 32.2, vitamin b12-710;negative hepatitis panel, quantiferon tb; --- 10/02/24 high alt 41, glucose 216, esr 28;low vitamin D 30.9;normal rest of cbc, cmp, crp<0.3; 09/07/24 patient requests to switch sq benlysta to IV, start prior authorization documented in this encounter [facility] 01-18-2025 Telephone encounter Note Please Call patient if MyChart note not read to review results/released to My Chart if tests completed at [facility]: High glucose, one borderline inflammatory test and wbc- care per primary care provider. Improved/stable rest of labs. Stay on vitamin D script once a week with food. Recheck nonfasting labs in 3months, orders have been placed. Happy to further review and discuss at follow up visit. Thank you. 01/11/25 high glucose 221, alt 42, wbc 12.61, esr 34;normal rest of cbc, cmp, crp <0.3, vitamin D 32.2, vitamin b12-710;negative hepatitis panel, quantiferon tb; --- 10/02/24 high alt 41, glucose 216, esr 28;low vitamin D 30.9;normal rest of cbc, cmp, crp<0.3; 09/07/24 patient requests to switch sq benlysta to IV, start prior authorization [facility] 12-14-2024 Note HNO ID: [id number] Author: JHONATHAN VALE RN Service: ? Author Type: Registered Nurse Type: Progress Notes Filed: 12/14/2024 16:36 Note Text: Ran over 2 hours per patient request. [facility] 12-14-2024 History of Presen t illness Narrative Ran over 2 hours per patient request. documented in this encounter [facility] 12-14-2024 Note [facility] 12-14-2024 History of Presen t illness Narrative CMN RECEIVED BY [employer] VIA FAX, COMPLETED, AND PLACED IN PROVIDER MAILBOX FOR SIGNATURE Ama Esparza [employer] Supervisor II [employer] SENDING CMN: Josh SIGNED AND DATED CMN, FAXED TO DME & CONFIRMATION PAGE RECEIVED: 12.14.2024 documented in this encounter [facility] 11-30-2024 Evaluation note Diagnosis Onset Date Resolution Lumbosacral spondylosis acute J bart 2024 9:03am Other chronic pain acute November 212024 9:03am Sacroiliitis acute November 30, 9:03am Abdominal burning sensation in left upper quadrant acute December 12, 2024 10:42am Abdominal mass acute December 12, 2024 10:42am Abdominal pain acute December 12, 2024 10:42am Bloating acute December 12 10:42am Constipation acute December 12, 2 025 10:42am Dyspepsia acute December 12 10:42am Lumbosacral spondylosis acute A ugust 2024 10:29am Other chronic pain acute January 17, 2025 10:29am Sacroiliitis acute January 17, 2025 10:29am Lumbosacral spondylosis acute S eptember 2024 9:23am Mid back pain acute January 232024 9:23am Other chronic pain acute 2024 9:23am Sacroiliitis acute February 142024 9:23am [facility] Work Phone: [phone] Telephone encounter Note* Telephone Encounter - Enma Hamm RN - 11/30/2024 8:36 AM EDT Pt updated on results. Will continue with IVIG, as previously scheduled. Denied further needs or concerns at this time. Enma Hamm RN [facility]07-10-2025 Miscellaneous Notes* Telephone Encounter - Enma Hamm RN - 11/30/2024 8:36 AM EDT Pt updated on results. Will continue with IVIG, as previously scheduled. Denied further needs or concerns at this time. Enma Hamm RN [facility] History of Present illness Narrative* Vaibhav Carvalho APRN.ROOM SERVICE ASSOCIATE - 11/29/2024 8:43 AM EDT Images from the original note were not included. NAME: Ariadna Haley [facility] NO.: [id number] DATE OF SERVICE: .November 29, 2024 (Deven) Some elements in this clinic note that are critical to medical decision making have been carefully reviewed and included from a prior clinic note dated: September 06, 2024 (Deven) Referring Provider: Dr. Manuel Ferrsi Additional Clinicians involved in Ariadna Haley's care: DIAGNOSIS: Multiple symptoms CASE SUMMARY / [...] will call with lab results. AI ASSISTED A/P 1. Hypogammaglobulinemia (HCC) (D80.1) Receiving IVIG every 4 weeks. Previous IgG level was 599 mg/dL. Noted improvement in symptoms for 2-3 weeks post-infusion. - Continue current IVIG regimen. - Discuss potential for more frequent IVIG administration with Dr. Morales upon his return from vacation. - Monitor IgG levels; recent lab ordered and in process. 2. Vitamin B12 deficiency (E53.8) Receiving B12 injections every 4 weeks. Administered B12 injection today. 3. Other iron deficiency anemia (D50.8) Iron levels previously borderline; currently taking oral iron supplements. Monitor iron levels with today's labs. 4. Malaise and fatigue (R53.81) Intermittent fatigue; periods of severe tiredness lasting days. Start Cymbalta as prescribed by PCP to potentially improve energy levels and mood. 5. Shortness of breath (R06.02) Persistent SOB associated with palpitations and tachycardia. Currently on metoprolol BID and low-dose Klonopin. Continue current medications. Monitor symptoms. 6. Other specified disorders of breast (N64.89) Chronic green discharge from milk ducts, previously cultured as Pseudomonas. No worsening of symptoms. Continue to monitor; no current intervention required per [facility] recommendations. 7. Pre-diabetes (R73.03) Borderline diabetic. Previously on Trulicity 0.75 mg, hesitant to start 1.5 mg due to abdominal pressure. Discussed potential benefits of weight loss on symptoms. Advised to consult with PCP about resumingTrulicity 1.5 mg. 8. Gastro-esophageal reflux disease without esophagitis (K21.9) Experiencing significant abdominal pressure and discomfort, possibly related to GERD. Previous tests for C. diff, H. pylori, SIBO, and gluten intolerance negative. Continue current management. Consider weight loss to alleviate symptoms. CASE HISTORY: Reverse Chronological Order 03/23/2024 - IgG, IgM 476, 373, vit D 19.9, cbc : 12.89>13.1/39.3<262, WSR - 27. Currently 2021 ongoing and generalized malaise with elevated IgM. 2020 - lymph node biopsy from neck negative for malignancy. 2019 - had a respiratory illness with dyspnea, possible bronchitis, no cough . HPI: Updated Visit, November 29, 2024: Patient with [...] requiring a recent corticosteroid injection by her events solutions consultant. She experiences intermittent fatigue, shortness of [...] lower lip done 2 days ago at [facility] - awaiting results. B12 helps [...] injections. Shefollows with multiple doctors including and certified marine mechanic, residential advisor, events solutions consultant and PCP. She has been told [...] PERFORMANCE STATUS: 0 PHYSICAL EXAMINATION: Vitals: BP 113/57 Pulse 88 Temp (Src) 97.5 (Temporal) Resp 18 Ht 5' 7.008 (1.70m) Wt 288lb 2.3 oz (130.7kg) SpO2 98% LMP 05/30/2024 BMI 45.12 kg/(m^2). Body surface area is 2.49 meters squared. No exam ALLERGIES: ALLERGIES Allergen [...] thinks she just experienced side effects. MEDICATIONS: pantoprazole DR (PROTONIX) 40 mg tablet TAKE 1 TABLET BY MOUTH 1/2 TO 1 HOUR BEFORE MORNING MEAL tacrolimus (PROTOPIC) 0.1 % ointment APPLY TO AFFECTED AREA ON FOREHEAD TWICE A DAY NEEDED FOR FLARES, HOLD IF CLEAR thiamine (VITAMIN B1) 100 mg tablet Take 100 mg by mouth every morning. nystatin (MYCOSTATIN) 100,000 unit/mL suspension TAKE 4 ML BY MOUTH / THROAT 4 TIMES A DAY FOR 7 DAYS LO LOESTRIN FE 1 mg-10 mcg (24)/10 mcg (2) Take 1 tablet by mouth once daily. fluocinonide (LIDEX) 0.05 % external solution DULoxetine (CYMBALTA) 20 mg capsule Take 1 capsule by mouth once daily. clotrimazole (MYCELEX) 10 mg christel USE 1 CHRISTEL WHILE ON IMMUNOSUPPRESSIVE MEDICINE BY MOUTH/THROAT 3 TIMES A DAY Clobetasol Propionate 0.05 % sham KLONOPIN 0.5 mg tablet 1 tablet Orally Once a day prn for 30 days F41.9 Clindamycin Phosphate (CLEOCIN T) 1 % lotion APPLY A THIN LAYER TO AFFECTED AREAS ON THE THIGHS ONCE A DAY HIBICLENS 4 % external liquid tretinoin (RETIN-A) 0.025 % topical cream Apply to face, once daily at evening/night time, 30 day supply predniSONE (DELTASONE) 10 mg tablet Take 40mg daily x 3, decrease by 5mg every 3days until taking 10mg daily with food thereafter (no oral nsaids) ergocalciferol 50,000 unit capsule (VITAMIN D2, DRISDOL) Take 1cap by mouth 3times a week x 10weeks, then once a week with food. belimumab (BENLYSTA) 200 mg/mL auto-injector Inject 200mg (1 pen) subcutaneously once weekly TRULICITY 0.75 mg/0.5 mL pen injector Inject 0.75 mg subcutaneously one time a week. Per PCP [id number] (BMX 1:1:1) 1:1:1 liqd Take 5 mL by mouth every 6 hours as needed. folic acid 1 mg tablet Take 1 [...] day LABORATORY VALUES: WBC (k/uL) Date Value 11/29/2024 12.17 (H) RBC (m/uL) Date Value 11/29/2024 4.42 Hemoglobin (g/dL) Date Value 11/29/2024 14.0 Hematocrit (%) Date Value 11/29/2024 42.9 MCV (fL) Date Value 11/29/2024 97.1 MCH (pg) Date Value 11/29/2024 31.7 MCHC (g/dL) Date Value 11/29/2024 32.6 RDW-CV (%) Date Value 11/29/2024 14.8 Platelet Count (k/uL) Date Value 11/29/2024 281 MPV (fL) Date Value 11/29/2024 9.7 Glucose (mg/dL) Date Value 11/29/2024 233 (H) BUN (mg/dL) Date Value 11/29/2024 16 Creatinine (mg/dL) Date Value 11/29/2024 0.58 Sodium (mmol/L) Date Value 11/29/2024 138 Potassium (mmol/L) Date Value 11/29/2024 4.0 Chloride (mmol/L) Date Value 11/29/2024 102 CO2 (mmol/L) Date Value 11/29/2024 23 Protein, Total (g/dL) Date Value 11/29/2024 7.0 Albumin (g/dL) Date Value 11/29/2024 4.1 Calcium, Total (mg/dL) Date Value 11/29/2024 9.7 Alkaline Phosphatase (U/L) Date Value 11/29/2024 61 Bilirubin, Total (mg/dL) Date Value 11/29/2024 0.2 AST (U/L) Date Value 11/29/2024 16 ALT (U/L) Date Value 11/29/2024 39 (H) Cholesterol, Total (mg/dL) Date Value 05/21/2015 217 (H) Triglyceride (mg/dL) Date Value 05/21/2015 242 (H) DIAGNOSIS: (D80.1) Hypogammaglobulinemia (HCC) (primary encounter diagnosis) (E53.8) Vitamin B12 deficiency (D50.8) Other iron deficiency anemia (R53.81, R53.83) Malaise and fatigue (R06.02) Shortness of breath (N64.89) Other specified disorders of breast (R73.03) Pre-diabetes (K21.9) Gastro-esophageal reflux disease without esophagitis PAST MEDICAL HISTORY Diagnosis Date Chronic pain [...] (Crohn's [Other]) Mother . Vaibhav Carvalho APRN, COURTESY CAR DRIVER-C, [facility] Provided at: [place], [place] CC: Manuel Ferris MD [facility] [place] [address] [facility] History of Present illness Narrative* KELVIN Pope - 11/23/2024 12:20 PM EDT Images from the original note were not included. Follow up Diagnosis: Hidradenitis Location: thighs, under chin Last visit: 1 year ago Symptoms: flaring on left side of groin, painful Status: stable Current treatment: clindamycin lotion every day, Hibiclens every day in shower All pertinent medical history, medications, and allergies were reviewed. General Exam: alert, oriented to person, place, and time, normal affect, well appearing Unaccompanied A focused exam completed based on patient reported problems, see below: Skin Exam 1. HIDRADENITIS SUPPURATIVA Left Medial Thigh, Right Medial Thigh Flaring on the left pubic area. Here today for ILK injection. Given symptoms, recommend treatment with ILK today. ILK today, see [facility] for details. Consent: The risks and benefits of intralesional kenalog were discussed prior to the procedure. Specifically, the risk of skin atrophy was reviewed. It was also emphasized that multiple treatments may be necessary. Verbal consent was obtained from the patient/parent. Method: See [facility] for details on administration. 0.2 ml of K2.5 was injected intradermally. The patient/parents were instructed to massage the injection site(s) following the procedure. Instructed to call for any questions or problems that occur. Related Medications clindamycin (Cleocin T) 1 % lotion Apply thin later to affected areas on the thighs, once daily, 30 day supply Chlorhexidine Gluconate (Hibiclens) 4 % solution Use every day in shower from the neck down to affected areas. triamcinolone acetonide (Kenalog) injection 2.5 mg 2. PAIN Related Medications triamcinolone acetonide (Kenalog) injection 2.5 mg 3. ACNE VULGARIS Mid Lower Cutaneous Lip Scattered comedones and inflammatory pustules. Flaring today The patient and/or parent were counseled that it may take up to 2-3 months to notice significant improvement of the acne. The use of non-comedogenic cleansers and moisturizers was recommended. Acne treatment plan given today. Start Tretinoin 0.025% cream, counseled on proper use of prescribed medication, patient voiced understanding. tretinoin (Retin-A) 0.025 % cream - Mid Lower Cutaneous Lip Apply to face, once daily at evening/night time, 30 day supply Next Visit: as scheduled documented in this encounterF[facility] [id number] Telephone encounter Note* Telephone Encounter - Renea Schneider MA - 11/20/2024 12:00 PM EDT Patient coming in for treatment visit Wednesday11/29/24. Please add lab orders. thanks. Renea Schneider MA [facility]06-23-2025 Chief complaint+Reason for visit Narrative* Chief Complaint Admit Date reschedule procedure November 13, 2024 11: 15am SELENE LUMBAR FACET MBB L3,4,5 November 21 12:49pm FOLLOW UP AFTER SELENE LUMBAR MBB November 9:03am nausea/Burning under left rib December 12, 2024 10:42am reshedule procedure January 17, 2025 10 :29am Reason for Visit Admit Date Lumbosacral spondylosis November 13, 2024 11:15am Other chronic pain November 13, 2024 11:1 5am Sacroiliitis November 13, 2024 11:1 5am Lumbosacral spondylosis November 30, 2024 9:03am Other [...] :29am Sacroiliitis January 17, 2025 10 :29am [facility] Work Phone: 1(746) 947-653206-23-2025 Chief complaint+Reason for visit Narrative * Chief Complaint Admit Date reschedule procedure November 13, 2024 11: 15am SELENE LUMBAR FACET MBB L3,4,5 November 21 12:49pm FOLLOW UP AFTER SELENE LUMBAR MBB November 9:03am nausea/Burning under left rib December 12, 2024 10:42am reshedule procedure January 17, 2025 10 :29am Back Pain January 31, 2025 10:00am Reason for Visit Admit Date Lumbosacral spondylosis November 13, 2024 11:15am Other chronic pain November 13, 2024 11:1 5am Sacroiliitis November 13, 2024 11:1 5am Lumbosacral spondylosis November 30, 2024 9:03am Other [...] :29am Sacroiliitis January 17, 2025 10 :29am [facility] Work Phone: 1(287) 750-640406-23-2025 Evaluation note* Diagnosis Onset Date Resolution Status Admit Date Lumbosacral spondylosis acute J une 2024 11:15am Other chronic pain acute October 232024 11:15am Sacroiliitis acute November 13 11:15am Lumbosacral spondylosis acute J bart2024 9:03am Other chronic pain acute November 212024 [...] 10:29am Sacroiliitis acute January 17, 2025 10:29am [facility] Work Phone: 1(267) 495-888905-17-2025 History of Present illness Narrative* Lynne Ni MD - 10/07/2024 8:00 AM EDT THIS IS A AMBULATORY VIRTUAL [...] visit. Either the patient or their legal traffic representative has been informed of the risks [...] over, legs and low back. Reports pain /10. Has minimal AM stiffness. Feels safe at home. Has enough food, supplies and medications. Overall uncomfortable but happy with rheum care. No falls/fx/trauma/illness/oral sores/rash/hairloss/jaw pain/dysphagia/epistaxis/hemoptysis since last visit. No adverse effects with meds. No other complaints. Patient deniesfever, chills, cp, dyspnea, nausea, vomiting, night sweats, scalp tenderness, visual changes, hernandez, bowel/bladder changes, weight changes or other complaints. Last visit supportive care, see ID for recurrent thrush while on prednisone/better with nystatin, check labs, see vascular, see GI, toleratingazathioprine 3tabs daily (hold during infection), improved with benlysta sq injection weekly (hold during infection/wants to switch to IV in future if injections not helpful), start raynauds general m easures, may consider osteoporosis treatment if on long goods drier steroids/abnormal bmd, take vitamin D script once [...] neurology/on metoprolol for POTs, avoid aggravating triggers, long goods drier pain recommendations per primary care provider/pain clinic/patient currently declined cymbalta/lyrica, see ortho, prn brace, start fall precautions, 03/18/24:labs due 03/2024. taking tylenol, azathioprine 3tabs daily, benlysta now week 14 (only offwhen she had infection), vitamin D script, plaquenil 2tabs daily, motrin, lopressor, lyrica, prednisone 10mg daily/refilled 03/17/24. Does not think she could get out of bed or walk without steroids.stable eye exam. NO new rashes/sores. Had thrush [...] measures, may consider osteoporosis treatment if on skilled nursing steroids/abnormal bmd, take vitamin D script once [...] measures, may consider osteoporosis treatment if on skilled nursing steroids/abnormal bmd, take vitamin D script if [...] neurology/on metoprolol for POTs, avoid aggravating triggers, long goods drier pain recommendations per primary care provider/pain clinic/patient [...] weightbearing exercise as tolerated, avoid aggravating triggers 6/3/22:recent skin biopsy showed tumoid lupus. found to [...] Due for eye exam. Labs sent to [facility]/completed in 06/2021 (no results faxed to office, but patient pulled up results on her phone). Chronic current pain in neck, flank area, mid back, knees, legs, arms, all over pain. Better with lyrica 75mg 3times a day. Reports pain 4-12/31. Couple hrs AM stiffness. COVID vaccine [place] 09/28/20, 10/19/20, 05/26/21. Feels safe at home. [...] pain: yes H/o precedent/frequent infection(s): as above Enthesopathy/Peapack's/heel/plantar tenderness: hands random painful/tingling Skin thickening, psoriasis, [...] COVID-19 original vaccine, age 12+ yr, monovalent (Taasera - PURPLE TOP) 09/28/2020 10/19/2020 05/26/2021 COVID-19 vaccine, age 12+ yr (CipherOpticsECH COMIRNATY) 02/23/2023 COVID-19 vaccine, age 12+ yr, bivalent (Taasera) 02/08/2022 Pneumovax no Flu shot no Tetanus [...] (33);NL cbc, cmp, negative hla b27; Outside [place] 06/2021 low vitamin D 16, vitamin b12-307;high [...] Z79.899 Long-term use of high-risk medication Z79.52 shelter 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 M79.641, M79.642 [...] heavy and stiff. labs in 3months. Did finewith last benlysta 10/04/24 and IVIG 10/02/24. 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, see primary care provider for recurrent flank pain/if UTIs recut, improved with plaquenil 2tabs daily, startphotoprotection, see ophthalmology, steroids/prednisone 10mg daily/ per primary care provider/try weaning off, see derm/?eval recurrent boils/HS, see spine/pain clinic/improved with lyrica/may increase if needed, see derm, start prn heat/ice/otc arthritis creams, low impact weightbearing exercise as tolerated, see neurology/on metoprolol for POTs, avoid aggravating triggers, long goods drier pain recommendations per primary care provider/pain clinic/patient [...] (200mg) daily with a meal Please see debone supervisor every 6-12months while on Hydroxychloroquine. reStart azathioprine [...] video & audio (virtual) or phone or [id number] patient care, completing clinical documentation, obtaining and/or reviewing separately obtained history, performing amedically appropriate examination, counseling and educating the patient/family/caregiver, ordering m edications, tests, or procedures, communicating with other HCPs [...] Yes MYCHART AMBULATORY VISIT INTAKE QUESTIONNAIRE Question 10/06/2024 9:05 [...] Workers' Compensation? No Do you need an hatchery manager? No [facility] MYCHART ZOOM MESSAGE Question 10/06/2024 9:06 PM [...] Function Percentile (range: 0 - 100) 1 [facility] PROMIS CAT V1.0 - FATIGUE-28 DAYS [...] Fatigue Percentile (range: 0 - 100) 24 [facility] PROMIS CAT V1.1-PAIN INTERFERENCE-28 DAYS Question 10/06/2024 [...] Interference Percentile (range: 0 - 100) 4 [facility] SLAQ QUESTIONNAIRE Question 10/06/2024 9:11 PM EDT [...] anxious,depressed or irritable? Sometimes Abnormal Sometimes Abnormal In [...] my health Strongly Agree [facility] Instructions* Patient Instructions* Lynne Ni MD - 10/07/2024 7:19 AM [...] (200mg) daily with a meal Please see debone supervisor every 6-12months while on Hydroxychloroquine. azathioprine daily [...] touching your toes, sit-ups, using row machine long goods drier pain recommendations per primary care provider/pain clinic [...] your usual activities immediately. documented in this encounterDayton [facility]05-16-2025 Telephone encounter Note * Telephone Encounter - Beatriz Sanchez LPN - 10/06/2024 1:46 PM EDT VM left that below message forwarded to her . Requested return call if unable to view message. [facility]05-16-2025 Miscellaneous Notes* Telephone Encounter - Beatriz Sanchez LPN - 10/06/2024 1:46 PM EDT VM left that below message forwarded to her [facility]. Requested return call if unable to view message. * Telephone Encounter - Lynne Ni MD - 10/06/2024 1:02 PM EDT Please Call patient if Marcelino note not read to review results/released to [...] accordingly. Lynne Ni MD documented in this encounterDayton [facility]05-16-2025 Telephone encounter Note * Telephone Encounter - Lynne Ni MD - 10/06/2024 1:02 PM EDT Please Call patient if Marcelino note not read to review results/released to My Chart if tests completed at [facility]: Mildly glucose, one borderline inflammatory test- care [...] above. Please process accordingly. Lynne Ni MD [facility]04-30-[facility] History of Present illness Narrative* Deborah Arroyo LGC - 09/19/2024 10:00 AM EDT Patient Name and confirmed at initiation of visit. Dr. Lynne Ni requested a genetic consultation for Ariadna Haley, a 43 year old female, fordiscussion of her personal history of joint hypermobility in the setting of a family history of aortic dilation. Prior to the visit, the genetic counselor reviewed records in the patient's EMR including, but not limited to, available clinic notes, physician consultations, laboratory tests, imaging reports, cardiac studies, and other investigations and evaluations. The genetic counselor also reviewed the case with Dr. Beebe as needed prior to seeing the patient. [...] appointment); her daughter has dysautonomia and a dilatedascending aorta. Given her personal and family history, Ariadna was referred to Genetics for furtherevaluation for possible connective tissue disorder. Ms. Haley was evaluated today by Dr. Beebe and additional history is available in her [...] GENETIC TESTING: None. SOCIAL HISTORY: Lives in [place], [place] with her and daughter. 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 - Partner's ethnicity: not applicable. - No known -Bruneian, Mediterranean, /Bangladeshi, Kittitian-[place]/Cajun, or Ashkenazi Spiritism ancestry unless noted above. - Parental consanguinity: [...] delay/intellectual disability, infertility, recurrent loss, and unexplained infant . GENETIC COUNSELING RISK ASSESSMENT AND DISCUSSION: Ariadna Haley is a 43 year old female who presents for evaluation of connective tissue disorders such as hypermobile Peter Danlos syndrome. Dr. Beebe's physical examination will be documented inher note from today's visit. We briefly discussed the etiology of connective tissue disorders, which encompasses a group of conditions that can affect multiple parts of the body, such as the skeletalsystem (such as joint hypermobility, scoliosis, chest wall [...] this discussion, Ariadna Haley met with Dr. Beebe. Please see her note for assessment andplan. Ariadna did not meet clinical diagnostic criteria for hypermobile EDS on physical exam. Dr. Beebe did not feel that her physical exam and clinical features were suggestive of a specific underlying connective tissue disorder such as Peter Danlos syndrome, therefore no genetic testing was recommended after today's evaluation. Instead, Dr. Beebe recommended genetic testing via the connective tissue disorder panel at [facility] for Ariadna's daughter. Follow up will be determined pending test results. We also discussed Ariadna's family history of cancer in multiple paternal relatives. In general, cancer is thought to be the result of the normal aging process and caused by a combination of genetic and environmental factors. However, certain red flags in a family history can be suggestive of an un derlying inherited cancer risk. These red flags can [...] based on those results. 2. See Dr. Beebe's note for any additional recommendations. EDUCATIONAL INFORMATION SUPPLIED TO PATIENT: none The patient was seen for a total of 28 minutes, greater than 50% of which was spent [id number] counseling. This plan is being carried out per Dr. Beebe's recommendations. Deborah Arroyo MS, [facility] [place] Licensed Genetic Counselor [facility] CC: Dr. Last Beebe CC: Ariadna Melissa Haley [employer] documented in this encounterDayton [facility]04-29-2025 [facility]04-29-2025 [facility]04[facility] History of Present illness Narrative* Ny Beebe MD - 09/19/2024 7:46 AM EDT Images from the original note were not included. Department of Medical Genetics and Genomics OUTPATIENT NEW VISIT NOTE Recording using ambient Jump On It software for draft documentation of the visit was discussed with the patient/authorized traffic representative; all questions welcomed and answered. Patient/authorized traffic representative agreed to proceed Patient Name: Ariadna Haley AGE: [id number] year old Date of Service: September 19, 2024 Consultation requested by: Lynne Ni MD PCP: Manuel Ferris MD REASON FOR CONSULTATION/NEW VISIT: Advice requested regarding hypermobility It was my pleasure of seeing Ariadna Haley who presented to our genetics clinic today accompaniedby her daughter.This consultation was requested by Dr. Ni for an opinion regarding hypermobility.My final recommendations will be communicated back to the requesting physician by way of shared Medical record or letter via US mail. Ariadna Haley is a 43-year-old female with a known history of lupus, B12 deficiency, and hypogammaglobulinemia, presenting for evaluation of hypermobility and potential Peter-Danlos Syndrome (EDS). Ariadna reports a significant change in her joint flexibility, noting that she was very bendy as achild but now experiences severe stiffness and a feeling of heaviness. She has a history of diffuse hypermobility but denies any trevor joint dislocations. However, she does report that one of her ribs will pop in and out on its own and remain dislocated for a while before she can reposition it.She also has a history of a torn meniscus and ACL due to trauma but denies any other fractures or torn tendons or ligaments. 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 She reports delayed wound healing, possible hyperextensible skin, and easy bruising. She had an echocardiogram about 6 months ago, which was normal. She has myopia and had an eye exam a little over a year ago. Ariadna also reports gastrointestinal issues and has a history of C. difficile infection. She acknowledges experiencing palpitations and tachycardia. She has sleep disturbances, stating that she wakesup multiple times a night to use the restroom. She has sleep apnea and uses a CPAP machine. She reports constant fatigue and has a history of anxiety, which has been treated in the past. She denies depression. Ariadna has a family history of her daughter having mild aortic dilatation and syncopal episodes, dysautonomia, suspected POTS, and her son having a spontaneous pneumothorax. Her son had . She is concerned about the possibility of vascular EDS (vEDS) but denies any known aortic abnormalities. COMPLETE REVIEW OF SYSTEMS: The listed systems were reviewed and reveal the following in addition to any already discussed in the HPI: Constitutional: (+) fatigue Cardiovascular: (+) palpitations, (+) tachycardia Gastrointestinal: (+) GI issues Genitourinary: (+) nocturia Musculoskeletal: (+) stiffness, (+) heaviness, (+) joint pain Skin: (+) rashes, (+) delayed wound healing, (+) hair loss, (+) easy bruising Psychiatric: (+) anxiety, (-) depression Head: No abnormality of head shape or fontanel size/closure. Eyes: No known congenital vision impairment. Ears: No known congential hearing impairment. Nose: No general complaints. Oral cavity: No cleft lip or palate. Cardiovascular: No known congenital heart disease. Respiratory: No known congenital respiratory disease. GI: No known congenital GI anomalies Neurologic: No neurological regression, suspected seizures, dementia. Endocrine/Metabolic: (+)Obesity. No known metabolic disease. Infectious/Immunologic: (+) Hypogammaglobulinemia, Lupus, C.difficile infections Hematologic: (+) iron deficiency anemia. PROBLEM LIST: ACTIVE PROBLEM LIST Iron Deficiency Anemia - 06/16/2024 Hypogammaglobulinemia (Hcc) - 04/01/2024 Frequent Infections - 04/01/2024 History of Vitamin D Deficiency - 10/05/2023 Chronic Fatigue and Malaise - 06/10/2023 Bilateral Wrist Pain - 02/04/2023 Raynaud's Disease Without Gangrene - 02/04/2023 Steroid-Induced Osteoporosis - 02/04/2023 Online Program Coordinator Current Use of Systemic Steroids - 02/04/2023 Excessive and Frequent Menstruation With Irregular Cycle - 09/24/2022 Obesity, Class III, BMI >= 40 - 09/07/2022 Long-Term Use of High-Risk Medication - 06/15/2022 Christian Positive - 06/15/2022 Jose Rafael (Obstructive Sleep Apnea) - 05/20/2022 Somnolence, Daytime - 05/20/2022 Anemia, Unspecified - 03/11/2022 Megaloblastic Anemia Due to Vitamin B12 Deficiency - 03/04/2022 Discoid Lupus Erythematosus - 02/14/2022 Fibromyalgia - 10/24/2021 Systemic Lupus Erythematosus (Hcc) - 10/24/2021 Vitamin D Deficiency - 03/06/2021 Elevated Sed Rate - 03/05/2021 High Total Serum Igm - 03/05/2021 Secondary Osteoarthritis of Multiple Sites - 03/05/2021 Rash and Nonspecific Skin Eruption - 03/05/2021 Swelling of Lymph Nodes - 03/05/2021 Chronic Pain of Toes of Both Feet - 03/05/2021 Bilateral Leg Weakness - 03/05/2021 Hair Loss - 03/05/2021 Family History of Crohn's Disease - 03/05/2021 Long-Term Use of Plaquenil - 03/05/2021 Bilateral Sacroiliitis - 09/13/2015 Depression, Recurrent Chronic Pain Syndrome Pain, Hip Obesity Tobacco Use Disorder Vitamin B12 Deficiency - 05/31/2014 Hyperlipidemia - 05/31/2014 Ataxia - 05/31/2014 Chronic Bilateral Low Back Pain With Bilateral Sciatica - 05/31/2014 ALLERGIES: Bactrim [Sulfamethoxazole], Codeine, Clindamycin, Doxycycline, Latex, Sulfamethoxazole-Trimethoprim, and Trimethoprim MEDICATIONS: I have reviewed medications on September 19, 2024 Current Outpatient Medications on File Prior to Visit Medication Sig belimumab (BENLYSTA) 200 mg/mL auto-injector Inject 200mg (1 pen) subcutaneously once weekly predniSONE (DELTASONE) 10 mg tablet TAKE 1 TABLET BY MOUTH EVERY DAY WITH FOOD NO ORAL NSAIDS TRULICITY 0.75 mg/0.5 mL pen injector Inject 0.75 mg subcutaneously one time a week. Per PCP [id number] (BMX 1:1:1) 1:1:1 liqd Take 5 mL by mouth every 6 hours as needed. ergocalciferol 50,000 unit capsule (VITAMIN D2, DRISDOL) [...] WHILE OUTDOORS/OPHTHAMOLOGY EVERY 6-12 MONTHS WHILE ON* pregabalin (LYRICA) 75 mg capsule take 1 [...] facility-administered medications on file prior to visit. PAST MEDICAL HISTORY: I have reviewed [facility] on September 19, 2024 PAST MEDICAL HISTORY Diagnosis Date Chronic pain syndrome Depression, recurrent Diffuse cystic mastopathy H/O mammogram 11/09/2013 Hypotension, unspecified Low back pain Megaloblastic anemia due to vitamin B12 deficiency 03/04/2022 Mixed hyperlipidemia Obesity, unspecified Pain, hip Physical exam, annual 01/16/14 Pilonidal cyst with abscess Sacroiliitis Sciatica Tobacco use disorder Vitamin B12 deficiency Vitamin D deficiency PAST SURGICAL HISTORY: I have reviewed past surgical history on September 19, 2024 PAST SURGICAL HISTORY Procedure Laterality Date PAST SURGICAL HISTORY OF 2011 and 2013 pilonidal cyst PAST SURGICAL HISTORY OF D & C PAST SURGICAL HISTORY OF ablation SOCIAL HISTORY: - Lives in [place], [place] with her and daughters. - Highest level of education: High school. 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 Paternal - . - No known -Bruneian, Mediterranean, /Bangladeshi, Ashkenazi Spiritism, Kittitian-[place]/Cajun, or Synagogue ancestry unless noted above. - Parental consanguinity: no Family history was notable for: - Pregnancies/Children: 2 spontaneous losses. 4 live children (older two children have different father from younger two children): - 25 yo daughter, with easy bruising - 24 yo son with spontaneous pneumothorax, tall stature, negative Marfan syndrome testing - 15 yo daughter with joint hypermobility, dysautonomia, mildly dilated ascending aorta. - 7 yo daughter with history of frequent infections and Lymphadenopathy (following ID). Hx of mono. - A pat half sister, 53 yo, with no known health problems. - Mother 65 yo,5'5 , with Crohn's disease, hypothyroidism. - Father 57 yo, 2/2 abd cancer (? Liver), hx of pancreatitis, +EtOH use disorder. - Multiple paternal relatives with early onset cancer (< 50 yr). No additional history of congenital anomalies, ID/DD, seizures, blindness, deafness, cancers or consanguinity. A 4 generation pedigree was collected by Deborah Arroyo MS, [facility] [place] the patient's separate genetic counseling encounter. The pedigree will be scanned into [employer]. This information was reviewed with thefamily and modified as necessary; refer to the genetic counseling encounter and formal pedigree for other details on the family history. PHYSICAL EXAMINATION: General: alert, in no acute distress. Head: normocephalic, atraumatic. Facies: no obvious asymmetry. Eyes: EOMI, normal palpebral fissures bilaterally. ENT: Ears appear normally set, shaped. Normal nose shape and placement. Moist mucous membranes, no cleft lip, no micrognathia. Dental crowding and high palate. Neck: supple, no masses. Chest: symmetric, no pectus. Respiratory: breathing well on room air without distress. Cardiovascular: No cyanosis or edema. Abdomen: appears non-distended. Back: symmetric appearance. Extremities: normal palmar creases, normal digits, no poly/syndactyly. Neurologic: non-focal, normal muscle bulk, full ROM. MSK/Hypermobility: No hypermobility of fingers noted; no hypermobility of wrists noted; no hypermobility of elbows noted; no hypermobility of knees noted; no hypermobility of ankles noted; no hypermobility of toes noted; no pectus excavatum noted; no scoliosis noted; no pes planus noted. Skin: Color, texture, turgor normal. No neurocutaneous lesions. Hair: Normal texture and distribution. Nails: Normal Hypermobile EDS Assessment: The clinical diagnosis of hEDS requires the simultaneous presence of three criteria: Generalized joint hypermobility (Criterion 1): PRESENT Evidence of syndromic features, musculoskeletal complications and/or family history (Criterion 2): ABSENT Exclusion of alternative diagnoses (Criterion 3): ABSENT Criterion 1 Generalized joint hypermobility based on the Beighton score: Beighton Score: CRITERIA SCORE Passive dorsiflexion of each fifth finger greater than 90 (1 point each) 2 Passive apposition of each thumb to the flexor surface of the forearm (1 point each) 2 Hyperextension of each elbow greater than 10 (1 point each) 0 Hyperextension of each knee greater than 10 (1 point each) [address] the palms flat on the floor with the knees fully extended (1 point) 0 Total Score (out of 9 points) 6 *positive if >=6 for prepubertal children >=5 for pubertal children and adults up to age 50 >=4 for those age >50 years Criterion 2 At least two of the following features (A, B, and/or C) must be present. Feature A. Five or more of the following systemic manifestations of a more generalized connective tissue disorder: Unusually soft or velvety skin: PRESENT Mild skin hyperextensibility (volar surface of the non-dominant forearm, where the upper limit of normal extensibility is 1.5 cm): ABSENT Unexplained striae at the back, groins, thighs, breast and/or abdomen in adolescents, men, or prepubertal females: ABSENT Bilateral piezogenic papules* of the heel (* i.e., herniations of subcutaneous heel fat visible upon standing, must be present bilaterally): ABSENT Recurrent or multiple abdominal hernias, such as umbilical, curural, inguinal, or femoral (hiatal hernia does not count toward this feature): ABSENT Atrophic scarring involving at least two sites: ABSENT Pelvic floor, rectal and/or uterine prolapse in children, men or nulliparous women without a known predisposing medical condition: ABSENT Dental crowding and high or narrow palate: PRESENT Arachnodactyly: ABSENT Arm span to height >=1.05: ABSENT Mitral valve prolapse: ABSENT Aortic root dilatation with a Z score >+2: ABSENT Feature B. Positive family history (based on current 2017 hEDS criteria): ABSENT Feature C. At least one of the following musculoskeletal complications: Musculoskeletal pain in two or more limbs, recurring daily for at least three months: PRESENT Chronic widespread pain for at least three months: PRESENT Recurrent joint dislocations or trevor joint instability, in the absence of trauma (three or more atraumatic dislocations in the same joint or two or more atraumatic dislocations in two different joints occurring at different times; OR Medical confirmation of joint instability at two or more sites not related to trauma): PRESENT Criterion 3 ALL of the following prerequisites must be met: Absence of unusual skin fragility, which should prompt consideration of other types of EDS: PRESENT Exclusion of other heritable and acquired connective tissue disorders including autoimmune rheumatologic conditions: ABSENT (has Lupus) Exclusion (based on history, physical exam and/or molecular genetic testing) of alternative diagnoses that may also include joint hypermobility by means of hypotonia and/or connective tissue laxity such as neuromuscular disorders, other heritable connective tissue disorders and skeletal dysplasias:PRESENT INVESTIGATIONS: Previous Genetic Testing: none Imaging: Echo (OSH): Impression: Normal Findings: Global left ventricular systolic function is hyperdynamic; visually estimated ejection fraction is 65 to 70% Normal right ventricular size and systolic function Borderline left ventricular atrophy Normal diastolic function The left atrium is normal in size No significant valvular abnormalities Anterior free space; trivial effusion versus fat pad ASSESSMENT AND PLAN: Diagnosis: (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 In summary, Ariadna Haley is a 43 year old female who presents with: 1. 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 No trevor joint dislocations, but reports rib subluxation. Torn meniscus and ACL with trauma, no other fractures or torn tendons or ligaments. Family history includes mild aortic dilatation in daughter and spontaneous pneumothorax in son who had negative Marfan syndrome testing. She reports her concerns about vascular EDS. Conducteda detailed physical examination following the EDS consortium guidelines. She has generalized hypermobility, though did not meet additional criteria for a rare EDS type (such as vascular or classic type) or hypermobile EDS (hEDS) diagnosis. Per guidelines, a rheumatologic diagnosis such as Lupus if present excludes a hEDS diagnosis. - Discussed the possibility of genetic testing for her daughter who has mild aortic dilatation and would be most appropriate family member for initiating testing. If a genetic change is found in her,Ariadna would be recommended targeted testing. - DNA extraction today for collection of sample for any future genetic testing - Educated on the importance of fluid management - Educated about low-impact exercises such as recumbent rowing, cycling, and swimming to improve muscle tone and joint protection. - Educated about physical therapy PT for joint hypermobility is different than standard and may help you even if you do not have generalized joint hypermobility. Suggest PT consult the book Hypermobility Syndrome Recognition and Management For Physiotherapists by Katarina Reza (Eds.), [facility], 2003, ISBN [id number]; Examination and Treatment of a Patient with Hypermobility by Jamia Costello, Physical Therapy vol. 80, 2000, pp. 386-396; or the PT articles at www.hypermobility.org - Advised on maintaining adequate salt intake and hydration to manage any potential dizziness or dysautonomia symptoms. - Discussed the potential use of compression stockings and the possibility of medical therapy for POTS symptoms when present, recommending follow-up with a trip follower. 2. Chronic pain syndrome (G89.4) Chronic joint pain, particularly in the back and lower extremities. Severe stiffness and heaviness reported. - Reviewed supportive care and management. - Discussed option for chronic pain management. 3. Discoid lupus erythematosus (L93.0) Diagnosed with lupus, contributing to joint symptoms and pain. - Continue current management for lupus with rheumatology. - Monitor for any changes in symptoms. 4. Family history of cancer (Z80.9) Family history includes concern for early onset cancers in multiple paternal relatives - Recommend consideration of cancer genetic counseling following discussion with her PCP Total 87 minutes was spent with patient for [id number] evaluation, discussion of genetic differential diagnoses, management plan, counseling, chart review, documentation and coordination of care. Portions of [place] history were obtained by Deborah Arroyo [place], [facility] [place] which were reviewed with family and edited as necessary. All questions were answered to the best of my knowledge. Contact information has been provided to the patient. Ny Beebe MD Staff Core Drilling Supervisor Department of Medical Genetics and Genomics (DMGG) [facility] Appointments: [facility] CC: Deborah Arroyo MS, [facility] [place] Ariadna Haley (via [employer]) [address] [place] [id number] Lynne Ni MD CC to PCP via fax: Manuel Ferris [address] [place] [address] documented in [facility] encounterDay[facility]04-28-[facility]25 Telephone encounter Note * Telephone Encounter - Lynne Ni MD - 09/18/2024 4:52 PM EDT Notify patient medication sent as requested Thank you. Patient's request for medication is as follows: Requested Prescriptions Pending Prescriptions Disp Refills belimumab (BENLYSTA) 200 mg/mL auto-injector 12 mL 3 Sig: Inject 200mg (1 pen) subcutaneously once weekly Prescription(s) as above. Please process accordingly. Lynne Ni MD [facility]04-28-2025 Miscellaneous Notes* Telephone Encounter - Lynne Ni MD - 09/18/2024 4:52 PM EDT Notify patient medication sent as requested Thank you. Patient's request for medication is as follows: Requested Prescriptions Pending Prescriptions Disp Refills belimumab (BENLYSTA) 200 mg/mL auto-injector 12 mL 3 Sig: Inject 200mg (1 pen) subcutaneously once weekly Prescription(s) as above. Please process accordingly. Lynne Ni MD * Telephone Encounter - Pamella Pichardo RP - 09/18/2024 10:52 AM EDT Patient needs refill of Benlysta Date of Ariadna Haley's last Rheumatology office visit: 03/18/24 Next appointment date: 10/07/24 Last labs: 08/29/24 Last TB test: TB Result Date Value Ref Range Status 03/23/2024 Negative Final Requested Prescriptions Pending Prescriptions Disp Refills belimumab (BENLYSTA) 200 mg/mL auto-injector 12 mL 3 Sig: Inject 200mg (1 pen) subcutaneously once weekly Patient prefers: [facility] Thank you! Maria Esther Pichardo, PharmD Clinical Pharmacist, [employer] [facility] ; Pool: [facility] Pool #: [id number] documented in this encounterDayton Oste[facility] Hospital04-28-2025 Telephone encounter Note * Telephone Encounter - Macarena Sanchez - 09/18/2024 4:03 PM EDT Patient will be calling to reschedule her IV IG and benlysta. She needs to find a machine maintenance supervisor and will call back with the dates that she will be available. [facility]04-28-2025 Miscellaneous Notes* Telephone Encounter - Macarena Sanchez - 09/18/2024 4:03 PM EDT Patient will be calling to reschedule her IV IG and benlysta. She needs to find a machine maintenance supervisor and will call back with the dates that she will be available. documented in this encounterDayton [facility] Hospital04-28-2025 Telephone encounter Note * Telephone Encounter - Pamella Pichardo RPh - 09/18/2024 10:52 AM EDT Patient needs refill of Benlysta Date of Ariadna Haley's last Rheumatology office visit: 03/18/24 Next appointment date: 10/07/24 Last labs: 08/29/24 Last TB test: TB Result Date Value Ref Range Status 03/23/2024 Negative Final Requested Prescriptions Pending Prescriptions Disp Refills belimumab (BENLYSTA) 200 mg/mL auto-injector 12 mL 3 Sig: Inject 200mg (1 pen) subcutaneously once weekly Patient prefers: [facility] Thank you! Maria Esther Pichardo, PharmD Clinical Pharmacist, [employer] [facility] ; Pool: [facility] Pool #: [id number] [facility]04-22-2025 Telephone encounter Note* Telephone Encounter - Karina Pino - 09/12/2024 2:35 PM EDT Patient has been scheduled at [facility]04-22-2025 Miscellaneous Notes* Telephone Encounter - aKrina Pino - 09/12/2024 2:35 PM EDT Patient has been scheduled at [facility] * Telephone Encounter - Sherrie Cortes - 09/12/2024 2:13 PM EDT Patient called back and is now in agreement to schedule for Benlysta. Patient has been scheduled for Wednesday, 09/18. She will make her future appointments at this visit when she can work around her family arrangements. Spoke w/ T Wyatt regarding daughter recommendations and patient informed. Sherrie Cortes * Telephone Encounter - Sherrie Cortes - 09/11/2024 11:46 AM EDT Images from the original note were not included. Call placed to patient. She states her last SQ injection was on Wednesday, 09/09. Patient wants to hold off on scheduling right now due to family arrangements and will contact our office when she is ready to scheduled. Informed patient of the below scheduling for the drug. Cesilia Hicks [facility] You25 minutes ago (11:20 AM) Please schedule her every 2 weeks for 3 doses, then every 4 weeks for Benlysta. Cesilia Vicente Laura, RPh You27 minutes ago (11:18 AM) LS Auth is submitted and pending - okay to set her up 7+ days out. When you call her ask her when she had her last SQ dose, per the provider okay to schedule the IV dose 1 week after her SQ dose. ThanksCesilia * Telephone Encounter - Lynne Ni MD - 09/07/2024 12:52 PM EDT Please start prior authorization for IV benlysta Signed therapy plan with loading doses if approved by insurance. May schedule 1week after last sq injection benlysta pen if approved. Thank you * Telephone Encounter - Basia Samuel RN - 09/06/2024 4:20 PM EDT Patient has requested to switch from Benlysta injections to infusions. Will forward to Rheum provider. Anahi Becerril RN nurse school office manager: patient would like to know if she can bring her 8 year old to treatmentsin the summer. Basia Samuel RN documented in this encounterDayton Oste[facility] Hospital04-22-2025 Telephone encounter Note * Telephone Encounter - Sherrie Cortes - 09/12/2024 2:13 PM EDT Patient called back and is now in agreement to schedule for Benlysta. Patient has been scheduled for Wednesday, 09/18. She will make her future appointments at this visit when she can work around her family arrangements. Spoke w/ T Schneider regarding daughter recommendations and patient informed. Sherrie Cortes [facility]04-21-2025 Telephone encounter Note* Telephone Encounter - Sherrie Cortes - 09/11/2024 11:46 AM EDT Images from the original note were not included. Call placed to patient. She states her last SQ injection was on Wednesday, 09/09. Patient wants to hold off on scheduling right now due to family arrangements and will contact our office when she is ready to scheduled. Informed patient of the below scheduling for the drug. Cesilia Hicks [facility] You25 minutes ago (11:20 AM) Please schedule her every 2 weeks for 3 doses, then every 4 weeks for Benlysta. ThanksCesilia Laura [facility] You27 minutes ago (11:18 AM) LS Auth is submitted and pending - okay to set her up 7+ days out. When you call her ask her when she had her last SQ dose, per the provider okay to schedule the IV dose 1 week after her SQ dose. ThanksCesilia [facility]04-17-2025 Telephone encounter Note* Telephone Encounter - Lynne Ni MD - 09/07/2024 12:52 PM EDT Please start prior authorization for IV benlysta Signed therapy plan with loading doses if approved by insurance. May schedule 1week after last sq injection benlysta pen if approved. Thank you [facility]04-17-20[facility] Telephone encounter Note* Telephone Encounter - Enma Hamm RN - 09/07/2024 9:04 AM EDT Results discussed with pt. She is set for IVIG 10/04/24. She denies further questions needs or concerns at this time. Enma Hamm RN [facility]04-17-2025 Miscellaneous Notes* Telephone Encounter - Enma Hamm RN - 09/07/2024 9:04 AM EDT Results discussed with pt. She is set for IVIG 10/04/24. She denies further questions needs or concerns at this time. Enma Hamm RN documented in this encounterDayton Osteopathic Hospital04-16-2025 Evaluation note* Diagnosis Onset Date Resolution Status Admit Date Lumbosacral spondylosis acute A pril 2024 3:42pm Other chronic pain acute September 06, 2024 3:42pm Sacroiliitis acute September 06, 2024 3:42pm Lumbosacral spondylosis acute J une 2024 11:15am Other chronic pain acute October 232024 11:15am Sacroiliitis acute November 13 11:15am [facility] Work Phone: 1(321) 358-405504-16-2025 Evaluation note* Diagnosis Onset Date Resolution Status Admit Date Lumbosacral spondylosis acute A pril 2024 3:42pm Other chronic pain acute September 06, 2024 3:42pm Sacroiliitis acute September 06, 2024 3:42pm Lumbosacral spondylosis acute J une 2024 11:15am Other chronic pain acute October 232024 11:15am Sacroiliitis acute November 13 025 11:15am Lumbosacral spondylosis acute J bart2024 9:03am Other chronic pain acute November 212024 9:03am Sacroiliitis acute November 30 025 9:03am [facility] Work Phone: 1(189) 107-421704-16-2025 Telephone encounter Note* Telephone Encounter - Basia Samuel RN - 09/06/2024 4:20 PM EDT Patient has requested to switch from Benlysta injections to infusions. Will forward to Rheum provider. Anahi Becerril RN nurse school office manager: patient would like to know if she [facility] [address] [facility]. Basia Samuel RN [facility]04-16-2025 History of Present illness Narrative* Vaibhav Carvalho APRN.TRUE - 09/06/2024 9:00 AM EDT Images from the original note were not included. NAME: Ariadna Haley CLINIC NO.: [id number] DATE OF SERVICE: September 06, 2024 (Deven) Some elements in this clinic note that are critical to medical decision making have been carefully reviewed and included from a prior clinic note dated: June 13, 2024 (Deven) Referring Provider: Dr. Manuel Ferris Additional Clinicians [...] lower lip done 2 days ago at [facility] - awaiting results. B12 helps [...] injections. Shefollows with multiple doctors including and certified marine mechanic, residential advisor, events solutions consultant and PCP. She has been told [...] Resp 18 Ht 5' 7.008 (1.70m) Wt 290lb 9.1 oz (131.8kg) SpO2 97% LMP 05/30/2024 [...] THREE TIMES A DAY^Disp: 135 tablet^Rfl: 1 [id number] (BMX 1:1:1) 1:1:1 liqd^Take 5 mL by [...] (Crohn's [Other]) Mother . Vaibhav Carvalho APRN, COURTESY CAR DRIVER-C, [facility] Provided at: [place], [place] CC: Manuel Ferris MD [address] [facility] [id number] documented in this encounterDayton Osteopathic Hospital04-16-2025 [facility] History of Present illness Narrative* Gordo Barfield MD - 09/04/2024 3:20 PM EDT Subjective Patient ID: Ariadna Haley is a 43 y.o. female who presents for Thyroid Nodule (Follow up ultrasound [facility] 08/24/24) Thyroid US shows a 71l4n5dy left inf pole TR4 nodule. Radiology notes [...] 03/05/2021 Hair loss 03/05/2021 Hyperlipidemia (CMS/HCC) 05/31/2014 manager english 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 02/04/2023 Long-term [...] History of vitamin D deficiency 10/05/2023 Hypogammaglobulinemia (CMS/HCC) 04/01/2024 Insulin resistance 03/07/2024 Lupus erythematosus 04/06/2024 Sacroiliitis (CMS/HCC) 04/06/2024 Resolved Ambulatory Problems Diagnosis Date Noted No Resolved Ambulatory Problems Past Medical History: Diagnosis Date Cervical lymphadenopathy COVID-19 vaccine administered Difficulty walking Fatigue Fibromyalgia, primary History of removal of cyst 2012 HTN (hypertension) (CMS/HCC) Hx of abnormal cervical Pap smear 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HCC) Laryngopharyngeal reflux disease Lupus Nonscarring hair loss, [...] affected areas on the thighs, once daily, supply 60 mL 11 Clobetasol Propionate 0.05 % shampoo 1 application to the scalp in the shower topically 3-4 times aweek 236 mL 11 diclofenac sodium 1 % gel ergocalciferol (Vitamin D2) 1.25 MG (06203 UT) capsule Take 50,000 Units by mouth [...] (20 mg) by mouth at bedtime 90 tablet0 [DISCONTINUED] omeprazole (PriLOSEC) [address] capsule [...] there is no change I recommend checking andUS in 6 mo. Pt has now seen mult ENT who all agree she has LPRD, yet her sx are not well managed. Recommend GI eval for more aggressive care documented in this encounterFulton State [id number] Telephone encounter Note* Telephone Encounter - Blank Kimball - 09/02/2024 10:28 AM EDT Called and spoke with patient, patient is scheduled for a VV on 10/07/24 at 8:00am. Patient stated will complete labs a walk in [facility]04-12-2025 Miscellaneous Notes* Telephone Encounter - Blank Kimball - 09/02/2024 10:28 AM EDT Called and spoke with patient, patient is scheduled for a VV on 10/07/24 at 8:00am. Patient stated will complete labs a walk in * Telephone Encounter - Lynne Ni MD - 09/01/2024 3:55 PM EDT Please call and schedule nonfasting labs next [...] Lynne Ni MD * Telephone Encounter - Cora Hunt RN - 09/01/2024 10:53 AM EDT Images from the original note [...] diagnoses: Vitamin D deficiency documented in this encounterDayton [facility] Hospital04-11-2025 Telephone encounter Note * Telephone Encounter - Lynne Ni MD - 09/01/2024 3:55 PM EDT Please call and schedule nonfasting labs next [...] above. Please process accordingly. Lynne Ni MD [facility]04-11-2025 Telephone encounter Note* Telephone Encounter - Cora Hunt RN - 09/01/2024 10:53 AM EDT Images from the original note [...] Ni MD Assoc. diagnoses: Vitamin D deficiency [facility]04-07-2025 Telephone encounter Note* Telephone Encounter - Renea Schneider MA - 08/28/2024 11:04 AM EDT Do you want labs? Patient coming in Wednesday09/06/24 for follow up treatment. ThanksRenea MA T [facility]04-01-2025 Miscellaneous Notes* Telephone Encounter - Renea Schneider MA - 08/28/2024 11:04 AM EDT Do you want labs? Patient coming in Wednesday09/06/24 for follow up treatment. Thanks, Renea Schneider MA documented in this encounterDayton [facility] Hospital04-01-2025 Miscellaneous Notes* Telephone Encounter - Renea Schneider MA - 11/20/2024 12:00 PM EDT Patient coming in for treatment visit Wednesday11/29/24. Please add lab orders. thanks. Renea Schneider MA documented in this encounterDayton [facility]opathic Hospital03-27-2025 [facility]03-[facility]25 Telephone encounter Note* Telephone Encounter - Basia Samuel RN - 08/08/2024 10:27 AM EDT Patient has requested her IVIG rate to [...] and patient is aware. Basia Samuel RN [facility]03-18-2025 Miscellaneous Notes* Telephone Encounter - Basia Samuel RN - 08/08/2024 10:27 AM EDT Patient has requested her IVIG rate to [...] aware. Basia Samuel RN documented in this encounterDayton Osteopathic Hospital03-18-2025 [facility]03-18-2025 History of Present illness Narrative* Basia Samuel RN - 08/08/2024 9:03 AM EDT Patient states that she spoke with provider and she will defer IV iron for now, she is taking oral iron and will have labs rechecked in 1 month Basia Samuel RN documented in this encounterDayton Osteopathic Hospital03-05-2025 History of Present illness Narrative* Lois Holm MD - 07/26/2024 2:50 PM EST Lulu Haley is a 43 y.o. female [...] therefore will not be too aggressive with beta-blockertherapy. 2-shortness of breath related to morbid obesity and not cardiac in origin 3-tobacco abuse, was counseled for the need on tobacco cessation 4-systemic lupus being treated by rheumatology at the [facility] on steroids, Plaquenil and monoclonal antibody 5-obstructive [...] , Rfl: ergocalciferol (Vitamin D-2) 1.25 MG (01855 UT) capsule, Take 1 capsule (50,000 Units) [...] Scribe Attestation By signing my name below, ICarina LPN , Scribe attest that this documentation has [...] exam, discussion and plan. documented in [facility] encounterCommunity [facility] Work Phone: 1(734) 601-856603-05-2025 Instructions* Patient Instructions* Aissatou Hanson RN - 07/26/2024 2:50 PM [...] time of your visit. documented in this encounterCommunity [facility] Hospital Work Phone: 1(619) 315-293203-04-2025 History of Present illness Narrative* Bernabe English MD - 07/25/2024 1:30 PM EST Images from the original [...] ointment bid. On Plaquenil and Benlysta from residential advisor and started IVIG from roofer assistant. Follow up Diagnosis: Hidradenitis Location: thighs Last [...] given frequent flares of thrush. Start Nystatin 431304 unit suspension qid x 14 days. Recommended patient follow up with ENT if worsening or failing toimprove despite treatment to see if further workup or treatment needs done. Patient reports being told by pharmacist not to use the mouthwash they prescribed because of a possible interaction betweenlidocaine and plaquenil, patient has received lidocaine for biopsies with no issues, recommend patient discuss with ENT but most likely she should be able to use this product as long as she does not swallow it. Related Medications nystatin (Mycostatin) 201097 UNIT/ML suspension Take 4 mL (400,000 Units) [...] is needed. Instructed to follow up with OPHTHALMIC SURGEON for further work up. Next Visit: 1 year documented in this encounterFulton State [id number] History of Present illness Narrative* Luna Emanuel - 07/25/2024 12:18 PM EST [facility] Refill Assessment Medication(s): [...] been reviewed prior to dispensing the medication. [employer] Supervisor Assessment Patient confirmed: Yes Med/dose confirmed: Yes Supplies needed: No supplies needed Missed doses: No Copay amount: 0 Payment confirmed: Yes Delivery method: FedEx Signature required: Waived on patient request Delivery address: [address] [place] [address], [place] [address] Delivery date: 07/27/24 Questions or concerns for the pharmacist?: No Did you have any side effects believed to be related to this medication, that resulted in hospitalization?: No Current Outpatient Medications on File Prior to Visit Medication Sig mzcssdnbyjJOPZA-thojki-tobyqadop (BMX 1:1:1) 1:1:1 liqd Take 5 mL [...] medications on file prior to visit. [facility] SPECIAL[facility] CLINICAL ASSESSMENT - INFLAMMATORY CONDITIONS [...] longer tolerated. Luna Emanuel documented in this encounterDayton Osteopathic Hospital03-04-2025 NotePike [facility]02-27-2025 NoteHNO ID: [id number] Author: ALHAJI HEAD, DO Service: ? Author Type: Physician Type: Progress Notes Filed: 07/21/2024 13:05 Note Text: VIRTUAL VISIT PROGRESS NOTE This is a virtual visit using [employer] Video Visit. It required patient-provider interaction for the medical decision making as documented below. I have communicated my name and active licensure. The patient's identity and physical location were verified at the time of this visit. Either the patient or their legal traffic representative has been informed of the risks [...] of 18 Current Outpatient Medications Medication Sig ssebjgmmvsHDVUN-vesqmz-fosnyekpk (BMX 1:1:1) 1:1:1 liqd Take 5 mL [...] WHILE ON* belimumab ( (more content not included)...[facility]02-27-2025 History of Present illness Narrative* Alhaji Head DO - 07/20/2024 11:41 AM EST VIRTUAL VISIT PROGRESS NOTE This is a virtual visit using [employer] Z[employer] Video Visit. It required patient- provider interaction for the medical decision making as documented below. I have communicated my name and active licensure. The patient's identity and physical location wereverified at the time of this visit. Either the patient or their legal traffic representative has been informed of the risks [...] has no change in drainage, no erythema oredema of the nipple. She monitors her temperature [...] was educated that this would just need claire monitored but did not want to take [...] of 18 Current Outpatient Medications Medication Sig ghcxdbixpxXAOUZ-dbgaai-zqhfdnjuz (BMX 1:1:1) 1:1:1 liqd Take 5 mL [...] on the R. The patient or authorized traffic representative has agreed to proceed with the [...] monitored off of therapy. Since this time, hersymptoms have not progressed, no fevers, no increase in drainage, no redness, tenderness of the breast. Mammogram and US without evidence of abscess. Now has a left axillary nodule which is being followed by hobbing press operator. Through shared decision making with the patient, [...] DO July 21, 2024 documented in this encounterDayton Osteopathic Hospital02-26-2025 Procedure noteMichael [place] [id number] Pain Management Procedure Note Signed Patient: Ariadna Haley MR#: [id number] : 1980 Acct:[id number] Age/Sex: 43 / F Adm Date: 5 Loc: Room: Type: [facility] Attending Dr: Adolfo Kang MD Copies to: Gay Enciso, TRUE Kang MD~ Pain Procedure PROCEDURE PERFORMED BY: Adolfo Kang PROCEDURE DATE: 07/19/2024 PREPROCEDURE DIAGNOSIS: Bilateral sacroiliitis. Lumbosacral spondylosis. Chronic pain. POSTPROCEDURE DIAGNOSIS: Bilateral sacroiliitis. Lumbosacral spondylosis. Chronic pain. PROCEDURE: Bilateral sacroiliac joint injection under fluoroscopic guidance. COMPLICATIONS: None. ANESTHESIA: Local. CLINICAL NOTE: The patient has a history of low back pain. The patient requests the injection in an attempt to improve the pain. The risks, benefits, and alternatives of theprocedure were explained to the patient. The patient wishes to proceed. PROCEDURE NOTE: The patient was brought to the procedure room and placed in the prone position. The skin was prepped and draped with ChloraPrep and sterile towels. 6 mL of 1% lidocaine, in divided doses, were injected through a 27-gauge needle for local anesthesia. 23-gauge spinal needle was guided to the left sacroiliac joint under fluoroscopic guidance. Contrast dye was used to confirm proper needle position in the sacroiliac joint. After negative aspiration, 30 mg of triamcinolone and 2 mL of 0.25% bupivacaine were injected through the needle. The same steps were repeated to the right sacroiliac joint. The needles were removed and band-aids were applied. Patient tolerated the procedure well and was transferred to recovery in a stable condition. PLAN: The patient was instructed to call the clinic in 1 week to inform us of any progress. The patient was encouraged to call at any time with any questions or concerns. Documented By: Adolfo Kang MD 07/19/24 1104 Signed By: 07/19/24 1134 [facility]02-19-2025 Instructions* Patient Instructions* Marky Barnes PA-C - 07/12/2024 2:33 PM EST Alginate therapy (Reflux Raft, Reflux Gourmet) documented in this encounterDayton Osteopathic Hospital02-19-2025 NotePike [facility]02-19-2025 History of Present illness Narrative* Marky Barnes PA-C - 07/12/2024 2:14 PM EST Images from the original note were not included. [facility] NOTE CC: Ariadna Haley is a [...] Current medication(s): Current Outpatient Medications Medication Sig phwjscxkveZYGJX-ojxxpa-cjlgypchc (BMX 1:1:1) 1:1:1 liqd Take 5 mL [...] - otalgia, - ear pressure, - aural fullness,- otorrhea, - itching, - autophony, - ear [...] Level: 3 - Low documented in this encounterDayton Osteopathic Hospital02-17-2025 Evaluation note* Diagnosis Onset Date Resolution Status Admit Date Lumbosacral spondylosis acute F ebruary 2024 3:16pm Other chronic pain acute Februa 2024 3:16pm Sacroiliitis acute June 3:16pm [facility] Work Phone: 1(227) 275-111002-17-2025 Evaluation note* Diagnosis Onset Date Resolution Status Admit Date Lumbosacral spondylosis acute F ebruary 2024 3:16pm Other chronic pain acute Februa 2024 3:16pm Sacroiliitis acute June 3:16pm Lumbosacral spondylosis acute M 2024 3:40pm Other chronic pain acute July 31, 2024 3:40pm Sacroiliitis acute July 31, 2024 3:40pm [facility] Work Phone: 1(618) 969-973202-17-2025 Telephone encounter Note* Telephone Encounter - Krista Braswell MA - 07/10/2024 7:28 AM EST Pt was notified via . [facility]02-17-2025 Miscellaneous Notes* Telephone Encounter - Krista [...] accordingly. Lynne Ni MD documented in this encounterDayton Osteopathic Hospital02-16-2025 Telephone encounter Note * Telephone Encounter [...] above. Please process accordingly. Lynne Ni MD [facility]02-06-2025 History of Present illness Narrative* Luna [...] been reviewed prior to dispensing the medication. [employer] Supervisor Assessment Patient confirmed: Yes Med/dose confirmed: Yes Supplies needed: No supplies needed Missed doses: No Estimated days supply on hand: 1 Copay amount: 0 Payment confirmed: Yes Delivery method: FedEx Signature required: Waived on patient request Delivery address: [address] [place] [address] Delivery date: 07/05/24 Questions or concerns for [...] medications on file prior to visit. [facility] CLINICAL ASSESSMENT - INFLAMMATORY CONDITIONS [...] longer tolerated. Luna Emanuel documented in this encounterDayton Osteopathic Hospital02-06-2025 NotePike [facility] Hospital01-31-2025 Telephone encounter Note* Telephone Encounter - Krista Fonseca MA - 06/23/2024 8:27 AM EST Pt has been notified via Bizo. [facility]01-31-2025 Miscellaneous Notes* Telephone Encounter - Krista Fonseca MA - 06/23/2024 8:27 AM EST Pt has been notified via Bizo. * Telephone Encounter - Lynne Ni MD [...] accordingly. Lynne Ni MD documented in this encounterDayton Osteopathic Hospital01-30-2025 Telephone encounter Note * Telephone Encounter [...] above. Please process accordingly. Lynne Ni MD [facility]01-29-2025 Telephone encounter Note* Telephone Encounter - Sherrie Cortes - 06/21/2024 2:10 PM EST Thanks for the clarification! I didn't schedule the patient yet for Iron because of the question below so we are all good. Thank you! Sherrie Cortes [facility]01-29-2025 Miscellaneous Notes* Telephone Encounter - Sherrie [...] we will recheck. thanks documented in this encounterDayton Osteopathic Hospital01-29-2025 Telephone encounter Note * Telephone Encounter - Enma Hamm RN - 06/21/2024 1:14 PM EST Spoke with pt and she would like to try the OTC, as discussed. She is aware and agreeable to recheck in 3 months, as previously scheduled Enma Hamm RN Blanquita: pt can come off the IV Iron schedule. She will still continue with B12, as previously receiving. She is aware you will call if needed. [facility]01-29-2025 Telephone encounter Note* Telephone Encounter - Vaibhav Carvalho APRN.TRUE - 06/21/2024 1:07 PM EST Ok that is fine she can try oral iron Ferrous sulfate 325 mg every other day. Ok to keep her next appointment and we will recheck. thanks [facility]01-28-2025 Telephone encounter Note* Telephone Encounter - Sherrie Cortes - 06/20/2024 8:38 AM EST Left another message for patient. Sent MyChart to call back to schedule infusions when she's ready to schedule and provided phone number. Sherrie Cortes [facility]01-28-2025 Miscellaneous Notes* Telephone Encounter - Sherrie [...] callback with any questions. documented in this encounterDayton Osteopathic Hospital01-24-2025 Telephone encounter Note * Telephone Encounter - Sherrie Cortes - 06/16/2024 3:32 PM EST Call placed to patient, no answer. Left detailed message to call back to schedule for Venofer. Sherrie Cortes [facility]01-24-2025 Telephone encounter Note* Telephone Encounter - Vaibhav Carvalho APRN.CNP - 06/16/2024 12:26 PM EST Called patient and left a message regarding iron infusions. I did inform patient that she is low oniron and we can replace with IV infusion. Will have the office call to schedule. Encouraged to callback with any questions. [facility]01-23-2025 Telephone encounter Note* Telephone Encounter - [...] Pt had recent mammogram that was negative [facility] [id number] Miscellaneous Notes* Telephone Encounter - KELVIN Cabrera [...] mammogram that was negative documented in this encounterFulton State [id number] History of Present illness Narrative* Iraida Pate APRN.[facility] - 06/14/2024 10:43 AM EST Glucose - SIBO CPT 77724 Hydrogen Breath Test Ariadna Haley 1980 June 14, 2024 Referring Physician: Bandar Portillo NP Indication: NSG TEST INDICATIONS: Diarrhea R19.7, Abdominal Pressure R10.9 Weight: 275 lbs Location: [facility] Duration of Test: 2 hrs Hydrogen [...] Test Results: negative Physician Signature: Iraida Pate APRN.ROOM SERVICE ASSOCIATE documented in this encounterDayton Osteopathic Hospital01-21-2025 Progress note* [facility] [...] 13, 2024 TIME: 10:29 AM PAGER/CONTACT #: [facility]01-21-2025 Miscellaneous Notes* [facility] [...] 10:29 AM PAGER/CONTACT #: documented in this encounterDayton Osteopathic Hospital01-21-2025 NotePike [facility] Hospital01-21-2025 History of Present illness Narrative* Vaibhav Carvalho APRN.CNP - 06/13/2024 9:07 AM EST Images from the original note were not included. NAME: Ariadna Haley [facility] NO.: [id number] DATE OF SERVICE: June 13, 2024 (eDven) Some elements in this clinic note that [...] lower lip done 2 days ago at [facility] - awaiting results. B12 helps [...] injections. Shefollows with multiple doctors including and certified marine mechanic, residential advisor, events solutions consultant and PCP. She has been told [...] (Crohn's [Other]) Mother . Vaibhav Carvalho APRN, COURTESY CAR DRIVER-C, [facility] Provided at: [place], [place] CC: Manuel Ferris MD [facility] [place] [address] documented in this encounterDayton Osteopathic Hospital01-20-2025 NoteP[facility] Hospital01-20-2025 History of Present illness Narrative* Lee Friedman - 06/12/2024 2:31 PM EST CMN RECEIVED BY [employer] [facility] VIA FAX, COMPLETED, AND PLACED IN PROVIDER MAILBOX FOR SIGNATURE Lee Friedman Coordinator III [employer] SENDING CMN: Josh SIGNED AND DATED CMN, FAXED TO DME & CONFIRMATION PAGE RECEIVED: 06.28.2024 documented in this encounterDayton Osteopathic Hospital01-20-2025 Telephone encounter Note * Telephone Encounter - Margret Cuenca MA - 06/12/2024 12:00 PM EST Patient has an OTV appointment on 06/13. Please place lab orders. Margret Cuenca MA [facility]01-20-2025 Miscellaneous Notes* Telephone Encounter - Margret Cuenca MA - 06/12/2024 12:00 PM EST Patient has an OTV appointment on 06/13. Please place lab orders. Margret Cuenca MA documented in this encounterDayton Osteopathic Hospital01-14-2025 History of Present illness Narrative* Luna [...] been reviewed prior to dispensing the medication. [employer] Supervisor Assessment Patient confirmed: Yes Med/dose confirmed: Yes Supplies needed: No supplies needed Missed doses: No Estimated days supply on hand: 1 Copay amount: 0 Payment confirmed: Yes Delivery method: FedEx Signature required: Waived on patient request Delivery address: [address] [place] [address] Delivery date: 06/08/24 Questions or concerns for [...] medications on file prior to visit. [facility] CLINICAL ASSESSMENT - INFLAMMATORY CONDITIONS [...] longer tolerated. Luna Emanuel documented in this encounterDayton Osteopathic Hospital01-14-2025 NoteP[facility] Hospital01-14-2025 History of Present illness Narrative* KELVIN Cabrera [...] Ambulatory Problems Diagnosis Date Noted Autoimmune disease ([facility]) 06/01/2023 Fibromyalgia 06/01/2023 Autonomic dysfunction 06/01/2023 Dizziness [...] Tobacco use disorder 07/06/2023 Cytomegalovirus infection (HCC) ([facility]) 07/06/2023 Depression, recurrent ([facility]) 06/09/2023 Discoid lupus erythematosus ([facility]) 02/14/2022 Disturbance of skin sensation 07/06/2023 Elevated sed rate 03/05/2021 High total serum IgM 03/05/2021 Enthesopathy of hip region 07/06/2023 Essential hypertension ([facility]) 06/09/2023 Excessive and frequent menstruation with irregular cycle 09/24/2022 Family history of Crohn's disease 03/05/2021 Hair loss 03/05/2021 Hyperlipidemia ([facility]) 05/31/2014 shelter 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 02/04/2023 Long-term use of high-risk medication 06/15/2022 Long-term use of Plaquenil 03/05/2021 LPRD (laryngopharyngeal reflux disease) 07/06/2023 Megaloblastic anemia due to vitamin B12 deficiency 03/04/2022 Myalgia 07/06/2023 Obesity, Class III, BMI 40-49.9 (morbid obesity) ([facility]) 09/07/2022 Obstructive sleep apnea syndrome 05/20/2022 Oral lesion 07/06/2023 Pain, hip 07/06/2023 Rash and nonspecific skin eruption 03/05/2021 Steroid-induced osteoporosis (CMS/HCC) 02/04/2023 Somnolence, daytime 05/20/2022 Secondary osteoarthritis of multiple sites 03/05/2021 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 02/04/2023 Swelling of lymph nodes 03/05/2021 Vitamin D deficiency 03/06/2021 Vitamin B12 deficiency 05/31/2014 Pure hypercholesterolemia, unspecified (CMS/[facility]) 08/10/2023 Hoarse 08/10/2023 Thyroid nodule (CMS/[facility]) 08/10/2023 Shortness of breath 07/13/2023 Paroxysmal supraventricular tachycardia (CMS/[facility]) 07/13/2023 PAC (premature atrial contraction) 07/13/2023 Degenerative [...] of removal of cyst 2012 HTN (hypertension) (CMS/[facility]) Hx of abnormal cervical Pap smear 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[facility]) Insulin resistance Laryngopharyngeal reflux disease Lupus Nonscarring hair loss, unspecified Nontoxic goiter, unspecified (CMS/[facility]) Nontoxic single thyroid nodule (CMS/[facility]) Numbness Oral thrush Sleep apnea Vitamin D deficiency, unspecified Weakness of limb HISTORY PAST MEDICAL HISTORY SOCIAL HISTORY Past Medical History: Diagnosis Date Anxiety Cervical lymphadenopathy Chronic laryngopharyngitis COVID-19 vaccine administered x 2 ([employer]) Difficulty walking Fatigue Fibromyalgia, primary GERD (gastroesophageal reflux disease) History of removal of cyst 2012 tailbone x2 HTN (hypertension) (CMS/[facility]) Hx of abnormal cervical Pap smear Hyperlipidemia [...] behalf of: KELVIN Cabrera documented in this encounterFulton State [id number] NotePike Community Hospital12-23-2024 History of Present illness Narrative* Deisy Jaime LSW - 05/15/2024 9:09 AM EST Patient's name appears on the [facility] First Time Treatment Report for a non- oncology treatment. No psychosocial assessment is indicated. BILL Rosenberg Goals of Care Advance Directives are not on file. documented in this encounterDayton Osteopathic Hospital12-20-2024 History of Present illness Narrative* Luna [...] been reviewed prior to dispensing the medication. [employer] Supervisor Assessment Patient confirmed: Yes Med/dose confirmed: Yes Supplies needed: No supplies needed Missed doses: No Estimated days supply on hand: 1 Copay amount: 0 Payment confirmed: Yes Delivery method: FedEx Signature required: Waived on patient request Delivery address: [address] [place] [id number] Delivery date: 05/16/24 Questions or concerns for [...] medications on file prior to visit. [facility] CLINICAL ASSESSMENT - INFLAMMATORY CONDITIONS [...] longer tolerated. Luna Emanuel documented in this encounterDayton Osteopathic Hospital12-20-2024 NoteP[facility]12-04-2024 Nurse Note* Radha Schofield MA - 04/26/2024 9:32 AM EST Patient Identification confirmed: yes. Injection given and documented on MAR per provider order. Radha Schofield MA [facility]12-04-2024 Nurse Note* Radha Schofield MA - 04/26/2024 9:32 AM EST Patient Identification confirmed: yes. Injection given and documented on MAR per provider order. Radha Schofield MA documented in this encounterDayton Osteopathic Hospital11-22-2024 Telephone encounter Note * Telephone Encounter - Gay Barnett - 04/14/2024 12:11 PM EST Patient coming in for a sibo breath test on Wednesday and has been on keflex for 3 days and needs to be on for ten so she will need to reschedule [facility]11-22-2024 Miscellaneous Notes* Telephone Encounter - Gay Barnett - 04/14/2024 12:11 PM EST Patient coming in for a sibo breath test on Wednesday and has been on keflex for 3 days and needs to be on for ten so she will need to reschedule documented in this encounterDayton Osteopathic Hospital11-19-2024 NoteP[facility] Hospital11-18-2024 Miscellaneous Notes* Telephone Encounter - Sherrie Cortes [...] Please advise. Sherrie Cortes documented in this encounterDayton Osteopathic Hospital11-18-2024 Telephone encounter Note * Telephone Encounter - Sherrie Cortes - 04/10/2024 2:12 PM EST Patient requested this appointment be rescheduled for the end of April. She has been scheduled for 05/19, she is all set. Thank you! Sherrie Cortes [facility]11-18-2024 Telephone encounter Note* Telephone Encounter - Shantel Arce RPh - 04/10/2024 2:07 PM EST SUBQ products (eg, 20% [Cuvitru, Hizentra, Xembify]) or IM products (eg, 16% [GamaSTAN]) intravenously. It would depend upon insurance coverage and would be done as a retail prescription at designated insurance specialty pharmacy. Elpidio Arce, PharmD, BCOP [facility] Work Phone: 1(280) 159-963011-18-2024 Telephone encounter Note* Telephone Encounter - Enma [...] appt per pt request Enma Hamm RN [facility]11-18-2024 Telephone encounter Note* Telephone Encounter - Enma Hamm RN - 04/10/2024 12:54 PM EST Called to discuss with pt. She was researching online and found SCIG a weekly subq injection to give herself that is less dose, and has less side effects. Pharmacy/[facility]: please advise Enma Hamm RN [facility]11-18-2024 Telephone encounter Note* Telephone Encounter - Vera Najera MD - 04/10/2024 12:26 PM EST Really sorry - I don't recall the home infusion of IVIG - I think it is safer to give it to her in-house as IV so we can monitor infusion reactions. Sorry if I created a misunderstanding. [facility]11-18-2024 History of Present illness Narrative* Gordo Barfield [...] Ambulatory Problems Diagnosis Date Noted Autoimmune disease ([facility]) 06/01/2023 Fibromyalgia 06/01/2023 Autonomic dysfunction 06/01/2023 Dizziness [...] 03/05/2021 Hair loss 03/05/2021 Hyperlipidemia (CMS/HCC) 05/31/2014 shelter 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 02/04/2023 Long-term use of high-risk medication 06/15/2022 Long-term use of Plaquenil 03/05/2021 LPRD (laryngopharyngeal reflux disease) 07/06/2023 Megaloblastic anemia due to vitamin B12 deficiency 03/04/2022 Myalgia 07/06/2023 Obesity, Class III, BMI 40-49.9 (morbid obesity) (CMS/[facility]) 09/07/2022 Obstructive sleep apnea syndrome 05/20/2022 Oral [...] of removal of cyst 2012 HTN (hypertension) ([facility]) Hx of abnormal cervical Pap smear Insulin [...] AREA NEEDED ergocalciferol (Vitamin D2) 1.25 MG (93990 UT) capsule Take 50,000 Units by mouth [...] referred from the [facility] documented in this encounterFulton State HospitalFcoyedascv21-86-1127 Telephone encounter Note* Telephone Encounter - Sherrie [...] Triage was involved? Please advise. Sherrie Cortes [facility]11-15-2024 NoteP[facility]11-15-2024 History of Present illness Narrative* Deisy Jaime LSW - 04/07/2024 9:30 AM EST Patient's name appears on the [facility] First Time Treatment List for a non- oncology treatment. No psychosocial assessment is indicated. BILL Rosenberg Goals of Care Advance Directives are not on file SIGNATURE: JUSTICE Rosenberg PATIENT NAME: Ariadna Haley DATE: April 07, 2024 TIME: 9:31 AM PAGER/CONTACT #: documented in this encounterDayton Osteopathic Hospital11-14-2024 Evaluation + Plan note* Assessment & [...] her Raynaud's. All her questions were answered. Zytoprotec [id number] Miscellaneous Notes* Assessment & Plan Note - [...] her questions were answered. documented in this encounterUniversity Hospitals Lake West Medical CenterQoiza Forest View HospitalTiwuka20-37-4926 History of Present illness Narrative* Hayden Arciniega [...] Interpersonal Safety: Unknown (07/15/2023) Received from [facility] Environment Fear of Current [...] Assessment and Plan: Problem List Rheumatoid arthritis ([facility]) Relevant Medications ibuprofen (ADVIL,MOTRIN) 200 mg tablet predniSONE (STERAPRED DS) 10 mg tablet pack Systemic lupus erythematosus ([facility]) - Primary Relevant Medications ibuprofen (ADVIL,MOTRIN) 200 [...] orders for this visit: Systemic lupus erythematosus ([facility]) - Vas art doppler lwr bilat mult lev/PVR; Future Cold extremities - [facility] - [place], [place] - Vas art doppler lwr bilat mult lev/PVR; Future Pain of lower extremity, unspecified laterality - [facility] - [place], [place] - Vas art doppler lwr bilat mult lev/PVR; Future Rheumatoid arthritis, involving unspecified site, unspecified whether rheumatoid factor present ([facility]) Current smoker Raynaud's disease [...] you for your understanding. documented in this encounterKet[facility]11-14-2024 Instructions* Patient Instructions* Hayden Arciniega MD - 04/06/2024 9:40 AM EST Are You Ready To Kick The Habit? Free Tobacco Cessation Resources [facility] Services [facility] provide all employees with free tobacco cessation services that include: Counseling to understand nicotine addiction Education about medications that can help you successfully quit Assistance with developing a plan to quit Call to set up an individual appointment or find out when group classes will be held: [facility]: [phone] [facility]: [phone] [facility]: [phone] [facility]: [phone] Quit Smoking Action Plan and Resources [facility] offers an eight-week, online smoking cessation plan to all [facility] employees, regardless of whether Alexandra is your medical insurance provider. Go to [email or web address] and click the Health Risk Assessment and Resources link to get started. In the Clvri9Rfrdkq menu, click Action Plans instead of Health Risk Assessment to access the Quit Smoking Action Plan. Additional smoking cessation resources are also available to all [facility] employees on the Kjhep1Rbvlca web page at www.[employer])/quitsmoking. [place] Tobacco Cessation Program If [employer] is your medical insurance provider, there are more free resources available to you, including: No copays or deductibles on local tobacco cessation counseling services to help you quit Prescription assistance for tobacco cessation medications to help you quit For details about the tobacco cessation program available to [employer] members, go to www.[employer] (Search: Tobacco Cessation Program). [place] Tobacco Quit Line 7-359-RZYG-NOW ( ) is a toll-free, telephonic service that helps [place] residents quit smoking and using tobacco. It is staffed by experts who tailor a quit plan for you and provide you with advice. [place] Tobacco Quit Line 2-974-WGWB-NOW ( ) is a toll-free, telephonic service [...] and resources to help you quit tobacco: [place] [employer]--www.cancer.org/healthy/stayawayfromtobacco [place] [employer]--www.heart.org (Search: Quit Smoking) Centers for Disease Control and Prevention--www.cdc.gov/tobacco [place] Lung Association--www.lungusa.org documented in this encounterBrightlook HospitalBelmont Gzgavh19-03-1776 Telephone encounter Note* Telephone Encounter - Marky Mike DO - 04/03/2024 9:36 AM EST Changed terbinafine to itraconazole at pt request. [facility] [id number] Miscellaneous Notes* Telephone Encounter - Marky Mike DO - 04/03/2024 9:36 AM EST Changed terbinafine to itraconazole at pt request. documented in this encounterFulton State HospitalPutjywjytm05-12-8819 Telephone encounter Note* Telephone Encounter - Lynne [...] above. Please process accordingly. Lynne Ni MD [facility]11-10-2024 Miscellaneous Notes* Telephone Encounter - Lynne [...] accordingly. Lynne Ni MD documented in this encounterDayton Osteopathic Hospital11-10-2024 History of Present illness Narrative* Marky Mike DO - 04/02/2024 1:30 PM EST HPI: [...] with her immunosuppressive therapy. documented in this encounterFulton State HospitalSbjhvlqeov86-29-2528 Instructions* Patient Instructions* Vera Najera MD - 04/01/2024 4:28 PM EST Obtain body fluid culture from [facility]. B12 shot today and every 4 weeks. Continue Folic acid. Frequent infections plan IVIG for hypogammaglobulinemia Start when approved. RTC 3 months repeat labs same day. IVIG same day. documented in this encounterDayton Osteopathic Hospital11-08-2024 NotePike [facility]11-08-2024 History of Present illness Narrative* Ashly Castillo - 03/31/2024 12:29 PM EST CMN RECEIVED BY [employer] VIA FAX, COMPLETED, AND PLACED IN PROVIDER MAILBOX FOR SIGNATURE Ashly Castillo [employer] Supervisor II 03/31/2024 [employer] SENDING CMN: JOSH SIGNED AND DATED CMN, FAXED TO DME & CONFIRMATION PAGE RECEIVED: 04/11/2024 documented in this encounterDayton Osteopathic Hospital11-07-2024 Telephone encounter Note * Telephone Encounter - Mae Elaine - 03/30/2024 8:01 AM EST Pt is scheduled and instructions were sent thru my chart. [facility]11-07-2024 Miscellaneous Notes* Telephone Encounter - Mae Elaine - 03/30/2024 8:01 AM EST Pt is scheduled and instructions were sent thru my chart. * Telephone Encounter - Mae Elaine - 03/29/2024 9:02 AM EST Im for pt- saved time on 04/18 7:45 Also sent [employer] g. dm * Telephone Encounter - Mae Elaine - 03/20/2024 12:37 PM EDT Images from the original note were not included. documented in this encounterDayton Osteopathic Hospital11-06-2024 Telephone encounter Note * Telephone Encounter - Mae Elaine - 03/29/2024 9:02 AM EST Im for pt- saved time on 04/18 7:45 Also sent [employer]el[employer]t msg. dm [facility]11-04-2024 NoteP[facility]11-04-2024 History of Present illness Narrative* Vera Najera MD - 03/27/2024 3:03 PM EST Images from the original note were not included. NAME: Ariadna Haley [facility] NO.: [id number] DATE OF SERVICE: March 27, 2024 ([place]) Some elements in this clinic note that are critical to medical decision making have been carefully reviewed and included from a prior clinic note dated: December 27, 2023 (Liz) Referring Provider: Dr. Manuel Ferris Additional Clinicians involved in Ariadna Haley's care: VIRTUAL VISIT PROGRESS NOTE This is a virtual visit using [employer] T[employer] Testboard Worker Video Call. It required patient- provider interaction for the medical decision making as documented below. I have communicated my name and active licensure. The patient's identity and physical location wereverified at the time of this visit. Either the patient or their legal traffic representative has been informed of the risks [...] noted. PLAN: Obtain body fluid culture from [facility]. B12 shot today and every 4 [...] lower lip done 2 days ago at [facility] - awaiting results. B12 helps [...] injections. Shefollows with multiple doctors including and certified marine mechanic, residential advisor, events solutions consultant and PCP. She has been told [...] CPE Hematology and Oncology Services Provided at: [place], [place] CC: Manuel Ferris MD [address] [facility] [id number] documented in this encounterDayton Osteopathic Hospital10-31-2024 History of Present illness Narrative* KELVIN [...] Ambulatory Problems Diagnosis Date Noted Autoimmune disease (CMS/[facility]) 06/01/2023 Fibromyalgia 06/01/2023 Autonomic dysfunction 06/01/2023 Dizziness [...] Cytomegalovirus infection (HCC) (CMS/HCC) 07/06/2023 Depression, recurrent (CMS/[facility]) 06/09/2023 Discoid lupus erythematosus (CMS/HCC) 02/14/2022 Disturbance of skin sensation 07/06/2023 Elevated sed rate 03/05/2021 High total serum IgM 03/05/2021 Enthesopathy of hip region 07/06/2023 Essential hypertension (CMS/HCC) 06/09/2023 Excessive and frequent menstruation with irregular cycle 09/24/2022 Family history of Crohn's disease 03/05/2021 Hair loss 03/05/2021 Hyperlipidemia (CMS/HCC) 05/31/2014 manager english 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 02/04/2023 Long-term [...] unspecified (CMS/HCC) 08/10/2023 Hoarse 08/10/2023 Thyroid nodule ([facility]) 08/10/2023 Shortness of breath 07/13/2023 Paroxysmal supraventricular tachycardia ([facility]) 07/13/2023 PAC (premature atrial contraction) 07/13/2023 Degenerative disc disease, lumbar 11/08/2023 Paresthesias 11/08/2023 Nipple discharge 11/15/2023 Irregular periods/menstrual cycles 11/15/2023 Facet arthritis of lumbar region 12/15/2023 Resolved Ambulatory Problems Diagnosis Date Noted No Resolved Ambulatory Problems Past Medical History: Diagnosis Date Cervical lymphadenopathy COVID-19 vaccine administered Difficulty walking Fatigue Fibromyalgia, primary GERD (gastroesophageal reflux disease) History of removal of cyst 2012 HTN (hypertension) (CMS/[facility]) Hx of abnormal cervical Pap smear Insulin resistance Laryngopharyngeal reflux disease Lupus Numbness Oral thrush Prediabetes Sleep apnea Weakness of limb HISTORY PAST MEDICAL HISTORY SOCIAL HISTORY Past Medical History: Diagnosis Date Anxiety Cervical lymphadenopathy Chronic laryngopharyngitis COVID-19 vaccine administered x 2 ([employer]) Difficulty walking Fatigue Fibromyalgia, primary GERD (gastroesophageal reflux disease) History of removal of cyst 2012 tailbone x2 HTN (hypertension) (CMS/[facility]) Hx of abnormal cervical Pap smear Hyperlipidemia (CMS/[facility]) Insulin resistance Laryngopharyngeal reflux disease Lupus Numbness [...] behalf of: KELVIN Cabrera documented in this encounterFulton State [id number] Nurse Note* Stacy Gutiérrez MA - 03/23/2024 10:16 AM EDT Patient Identification confirmed: yes. Injection given and documented on MAR per provider order. Stacy Gutiérrez MA [facility]10-31-2024 Nurse Note* Stacy Gutiérrez MA - 03/23/2024 10:16 AM EDT Patient Identification confirmed: yes. Injection given and documented on MAR per provider order. Stacy Gutiérrez MA documented in this encounterDayton Osteopathic Hospital10-28-2024 Telephone encounter Note * Telephone Encounter - Mae Elaine - 03/20/2024 12:37 PM EDT Images from the original note were not included. [facility]10-26-2024 History of Present illness Narrative* Lynne [...] visit. Either the patient or their legal traffic representative has been informed of the risks [...] measures, may consider osteoporosis treatment if on skilled nursing steroids/abnormal bmd, take vitamin D script once [...] neurology/on metoprolol for POTs, avoid aggravating triggers, long goods drier pain recommendations per primary care provider/pain clinic/patient [...] measures, may consider osteoporosis treatment if on skilled nursing steroids/abnormal bmd, take vitamin D script if [...] neurology/on metoprolol for POTs, avoid aggravating triggers, long goods drier pain recommendations per primary care provider/pain clinic/patient [...] Due for eye exam. Labs sent to [facility]/completed in 06/2021 (no results faxed to office, [...] COVID-19 original vaccine, age 12+ yr, monovalent (Ta[employer]era - PURPLE TOP) 09/28/2020 10/19/2020 05/26/2021 COVID-19 vaccine, age 12+ yr ([employer] COMIRNATY) 02/23/2023 COVID-19 vaccine, age 12+ yr, bivalent (Taasera) 02/08/2022 Pneumovax no Flu shot no Tetanus [...] (33);NL cbc, cmp, negative hla b27; Outside [place] 06/2021 low vitamin D 16, vitamin b12-307;high [...] systemic lupus erythematosus with other organ involvement ([facility]) (primary encounter diagnosis) M79.7 Fibromyalgia R76.8 CHRISTIAN positive Q79.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 Elevated sed rate E55.9 Vitamin D deficiency 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 M54.42, M54.41, G89.29 Chronic bilateral low back pain with bilateral sciatica M79.674, M79.675, G89.29 Chronic pain of toes of both feet Z79.899 Long-term use of high-risk medication Z79.52 manager english 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 M79.641, M79.642 Bilateral hand pain M32.9 Systemic lupus erythematosus, unspecified SLE type, unspecified organ involvement status ([facility]) E53.8 Vitamin B12 deficiency L93.0 Discoid lupus [...] measures, may consider osteoporosis treatment if on skilled nursing steroids/abnormal bmd, take vitamin D script once [...] neurology/on metoprolol for POTs, avoid aggravating triggers, long goods drier pain recommendations per primary care provider/pain clinic/patient [...] (200mg) daily with a meal Please see debone supervisor every 6-12months while on Hydroxychloroquine. Start azathioprine [...] video & audio (virtual) or phone or [id number] patient care, completing clinical documentation, obtaining and/or [...] Workers' Compensation? No Do you need an hatchery manager? No [facility] MYCHART ZOOM MESSAGE Question 03/16/2024 7:44 [...] of Right Forearm or Lower Left Leg. [facility] PROMIS 10 ADULT SHORT FORM V1.0 GLOBAL [...] my health Strongly Agree documented in this encounterDayton Osteopathic Hospital10-26-2024 NotePike [facility] Hospital10-26-2024 Instructions* Patient Instructions* Lynne Ni MD - [...] (200mg) daily with a meal Please see debone supervisor every 6-12months while on Hydroxychloroquine. azathioprine daily [...] touching your toes, sit-ups, using row machine long goods drier pain recommendations per primary care provider/pain clinic [...] your usual activities immediately. documented in this encounterDayton Osteopathic Hospital10-25-2024 Telephone encounter Note * Telephone Encounter [...] above. Please process accordingly. Lynne Ni MD [facility]10-25-2024 Miscellaneous Notes* Telephone Encounter - Lynne iN MD - 03/17/2024 10:09 AM EDT Notify [...] VIDEO SPEC EST 03/18/2024 9:00 AM [facility] REJ Last Ophthalmology Check for Plaquenil [...] Ordered Last Rel. CBC + DIFF [SQCBCDIF] 05/28 Every 3 months 06/02/24 06/03/23 02/21/24 Auth. provider: Vera Najera MD Assoc. diagnoses: Megaloblastic anemia due to vitamin B12 deficiency, Elevated sed rate COMP METABOLIC PANEL [SQCMP] 05/28 Every 3 months 06/02/24 06/03/23 02/21/24 [...] [SQCMP] 03/20/24 06/19/24 12/27/23 Auth. provider: Neda Hill PA-C Assoc. diagnoses: Megaloblastic anemia due to vitamin B12 deficiency, Elevated sed rate, Obstructive sleep apnea syndrome IRON AND TIBC [SQIRON] 03/20/24 06/19/24 12/27/23 Auth. provider: Neda Hill PA-C Assoc. diagnoses: Megaloblastic anemia due to vitamin B12 deficiency, Elevated sed rate, Obstructive sleep apnea syndrome COMPLETE BLOOD COUNT AND DIFFERENTIAL [SQCBCDIF] 03/20/24 06/19/24 12/27/23 Auth. provider: Neda Hill PA-C Assoc. diagnoses: Megaloblastic anemia due to vitamin B12 deficiency, Elevated sed rate, Obstructive sleep apnea syndrome FERRITIN [SQFERR] 03/20/24 06/19/24 12/27/23 Auth. provider: Neda Hill PA-C Assoc. diagnoses: Megaloblastic anemia due to vitamin B12 deficiency, Elevated sed rate, Obstructive sleep apnea syndrome IMMUNOGLOBULINS,IGG,IGA,IGM [SQSERIMM] 03/20/24 06/19/24 12/27/23 Auth. provider: Neda Hill PA-C Assoc. diagnoses: Megaloblastic anemia due to vitamin B12 deficiency, Elevated sed rate, Obstructive sleep apnea syndrome FOLATE, SERUM [SQSERFOL] 03/20/24 06/19/24 12/27/23 Auth. provider: Neda Hill PA-C Assoc. diagnoses: Megaloblastic anemia due to vitamin B12 deficiency, Elevated sed rate, Obstructive sleep apnea syndrome VITAMIN B12 [SQB12] 03/20/24 06/19/24 12/27/23 Auth. provider: Neda Hill PA-C Assoc. diagnoses: Megaloblastic anemia due to [...] Assoc. diagnoses: Pseudomonas infection documented in this encounterDayton Osteopathic Hospital10-25-2024 Telephone encounter Note * Telephone Encounter [...] VIDEO SPEC EST 03/18/2024 9:00 AM [facility] REJ Last Ophthalmology Check for Plaquenil [...] [SQCMP] 03/20/24 06/19/24 12/27/23 Auth. provider: Neda Hill PA-C Assoc. diagnoses: Megaloblastic anemia due to vitamin B12 deficiency, Elevated sed rate, Obstructive sleep apnea syndrome IRON AND TIBC [SQIRON] 03/20/24 06/19/24 12/27/23 Auth. provider: Neda Hill PA-C Assoc. diagnoses: Megaloblastic anemia due to vitamin B12 deficiency, Elevated sed rate, Obstructive sleep apnea syndrome COMPLETE BLOOD COUNT AND DIFFERENTIAL [SQCBCDIF] 03/20/24 06/19/24 12/27/23 Auth. provider: Neda Hill PA-C Assoc. diagnoses: Megaloblastic anemia due to vitamin B12 deficiency, Elevated sed rate, Obstructive sleep apnea syndrome FERRITIN [SQFERR] 03/20/24 06/19/24 12/27/23 Auth. provider: Neda Hill PA-C Assoc. diagnoses: Megaloblastic anemia due to vitamin B12 deficiency, Elevated sed rate, Obstructive sleep apnea syndrome IMMUNOGLOBULINS,IGG,IGA,IGM [SQSERIMM] 03/20/24 06/19/24 12/27/23 Auth. provider: Neda Hill PA-C Assoc. diagnoses: Megaloblastic anemia due to vitamin B12 deficiency, Elevated sed rate, Obstructive sleep apnea syndrome FOLATE, SERUM [SQSERFOL] 03/20/24 06/19/24 12/27/23 Auth. provider: Neda Hill PA-C Assoc. diagnoses: Megaloblastic anemia due to vitamin B12 deficiency, Elevated sed rate, Obstructive sleep apnea syndrome VITAMIN B12 [SQB12] 03/20/24 06/19/24 12/27/23 Auth. provider: Neda Hill PA-C Assoc. diagnoses: Megaloblastic anemia due to [...] Alhaji Head DO Assoc. 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 Depression, recurrent ([facility]) 06/09/2023 Discoid lupus erythematosus ([facility]) 02/14/2022 Disturbance of skin sensation 07/06/2023 Elevated sed rate 03/05/2021 High total serum IgM 03/05/2021 Enthesopathy of hip region 07/06/2023 Essential hypertension ([facility]) 06/09/2023 Excessive and frequent menstruation with irregular cycle 09/24/2022 Family history of Crohn's disease 03/05/2021 Hair loss 03/05/2021 Hyperlipidemia (CMS/HCC) 05/31/2014 manager english 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 02/04/2023 Long-term [...] of removal of cyst 2012 HTN (hypertension) (CMS/[facility]) Hx of abnormal cervical Pap smear Insulin resistance Laryngopharyngeal reflux disease Lupus Numbness Oral thrush Prediabetes Sleep apnea Weakness of limb HISTORY PAST MEDICAL HISTORY SOCIAL HISTORY Past Medical History: Diagnosis Date Anxiety Cervical lymphadenopathy Chronic laryngopharyngitis COVID-19 vaccine administered x 2 ([employer]) Difficulty walking Fatigue Fibromyalgia, primary GERD (gastroesophageal [...] nursing note reviewed. Exam conducted with a towel folder present. Vitals: Estimated body mass index is [...] Disease with Dr. Kelsey and Specialist at [facility]. Patient voiced that Dr. Kelsey recommended surgery, but patient feels that maybe excessive. Specialist at [facility] suggested monitoring. Patient has had mammogram. Patient does not put anything on her breast.Ruled out Mondor's Breast concerns. Discussed Nes[place] Oil at night and Vitamin E lotion. Patient voiced that her breast feel brambila and heavier. Discussed growth of breast and proper support. Breastare not hot nor warm to the touch. Patient to obtain bilateral breast ultrasound. Patient to followup with routine annual appointment and as needed. Documented by Alicia Christine LPN on behalf of: Luan Valdivia DO documented in this encounterFulton State [id number] NotePike [facility] Hospital10-16-2024 NoteBELLNATIONWIDE [facility] Note Chief Complaint: New patient here to establish care. Ref from Gay Ecniso CNP for hypertension. Former [facility] cardiology patient. Had echo a few weeks ago at [facility]. Says her BP is very low [...] past several months. She has seen 2-3 trip follower in the past. She has undergone a [...] on any stimulants including caffeinated beverages, alcohol, vquy-mvt-vrguetn Sudafed etc. If her symptoms of palpitations persist, particular if she has lightheadedness or dizziness, head upright tilt table test may be reasonable to evaluate for possible dysautonomia's I discussed the side effects and risks of long-term steroid therapy and recommended she discuss with her residential advisor weaning off soon as possible Given her morbid obesity, her current symptoms and comorbidities are likely related to excessive weight: I encouraged physical activity, attempts to lose weigh (more content not included)...[facility] 03-07-2024 NoteP[facility]10-15-2024 History of Present illness Narrative* Lee Friedman - 03/07/2024 8:35 AM EDT CMN RECEIVED BY [employer] VIA FAX, COMPLETED, AND PLACED IN PROVIDER MAILBOX FOR SIGNATURE Lee Friedman Coordinator III 03.07.2024 [facility] [employer] SENDING CMN: Josh SIGNED AND DATED CMN, FAXED TO DME & CONFIRMATION PAGE RECEIVED: 03.07.2024 documented in this encounterDayton Osteopathic Hospital10-01-2024 Telephone encounter Note * Telephone Encounter [...] 'too terrified to drive that far to [facility].' Further reviewed the reasoning behind the visit needing to be in-person and stated that I would have our crew scheduler reach out if she is willingto accept an in-person appt. PT requested that I review with our clinical team if this can be a VV before she schedules. I let her know I will do so and be in touch. She had no further questions at this time. Luda Vargas Genetic Counseling Pattern Ruler Additional: see Khoa for documentation of scheduling and cancellation with genetics in 2021 [facility]10-01-2024 Miscellaneous Notes* Telephone Encounter - Luda [...] 'too terrified to drive that far to [facility].' Further reviewed the reasoning behind the visit needing to be in-person and stated that I would have our crew scheduler reach out if she is willingto accept an in-person appt. PT requested that I review with our clinical team if this can be a VV before she schedules. I let her know I will do so and be in touch. She had no further questions at this time. Luda Vargas Genetic Counseling Pattern Ruler Additional: see FY for documentation of scheduling and cancellation with genetics in 2021 documented in this encounterDayton Osteopathic Hospital09-30-2024 Nurse Note* Kenzie Shannon MA - 02/21/2024 11:13 AM EDT Patient Identification confirmed: yes. Injection given and documented on MAR per provider order. Kenzie Shannon MA [facility]09-30-2024 Nurse Note* Kenzie Shannon MA - 02/21/2024 11:13 AM EDT Patient Identification confirmed: yes. Injection given and documented on JUL per provider order. Kenzie Shannon MA documented in this encounterDayton Osteopathic Hospital09-27-2024 Telephone encounter Note * Telephone Encounter - Sherrie Jimenes - 02/18/2024 1:26 PM EDT Patient is calling the [facility] office requesting Dr. Ni to place a referral to genetics. Please advise. [facility]09-27-2024 Miscellaneous Notes* Telephone Encounter - Sherrie Jimenes - 02/18/2024 1:26 PM EDT Patient is calling the [place] office requesting Dr. Ni to place a referral to genetics. Please advise. documented in this encounterDayton Osteopathic [facility] Telephone encounter Note * Telephone Encounter - Hansa Montero LPN - 02/15/2024 9:49 AM EDT PAP ORDER FAXED TO [facility] WITH DEMOGRAPHICS, OFFICE NOTES WITH CONFIRMATON NOTED. [facility]09-24-2024 Miscellaneous Notes* Telephone Encounter - Hansa Montero LPN - 02/15/2024 9:49 AM EDT [facility], OFFICE NOTES WITH CONFIRMATON NOTED. documented in this encounterDayton Osteopathic Hospital09-23-2024 History of Present illness Narrative* Elton (Voucher Examiner)Luda - 02/14/2024 2:32 PM EDT [facility] [...] been reviewed prior to dispensing the medication. [place] [place] [place] Supervisor Assessment Patient confirmed: Yes Med/dose confirmed: Yes Missed doses: No Estimated days supply on hand: 1 Next cycle/dose due: 02/17/24 Copay amount: 0 Payment confirmed: Yes Delivery method: FedEx Signature required: Waived on patient request Delivery address: [address] [place] [address] [address] [place] Delivery date: 02/17/24 Questions or concerns [...] medications on file prior to visit. [facility] CLINICAL ASSESSMENT - INFLAMMATORY CONDITIONS [...] of efficacy and/or no longer tolerated. [facility] [phone] documented in this encounterDayton [facility]09-23-2024 [facility] History of Present illness Narrative* Elton EpsteinLeap.itLuda Benz - 02/14/2024 2:26 PM EDT Benefits investigation was conducted, indicating that a re-authorization is required for [employer]. PA was initiated and pending review. Plan Name: Keesha CoverMyMeds Balderrama: [id number] Luda Vale [facility] [phone] documented in this encounterDayton Osteopathic Hospital09-23-2024 [facility]09-23-2024 [facility]09-23-2024 Instructions* Patient Instructions* Lexus Heck APRN.CNP - [...] treatment, there are resources available at the [facility] such as a nutrition consultation or referral to weight management programs at our [facility]. Please let us know if we can [...] and out of pocket expenses. DME: Josh [phone] - Remember to clean your mask and equipment regularly, as directed. - Avoid use of ozone bingo checker, SoClean devices, or UV cleaning devices - [...] the central scheduling system for the [facility] at [phone]. Health system now offers direct scheduling for patients to schedule appointments. Virtual visits are also available. Call the office at [phone], option #5 for questions. documented in this encounterDayton Osteopathic Hospital09-23-2024 History of Present illness Narrative* Lexus Heck APRN.CNP - 02/14/2024 8:00 AM EDT Images from the original note were not included. [facility] Virtual Visit Follow up/ Established patient visit Date of last visit : 07/27/2022 I have communicated my name and active licensure. The patient's identity and physical location wereverified at the time of this visit. Either the patient or their legal traffic representative has been informed of the risks [...] Return Visit in 6 months. Lexus Heck APRN.ROOM SERVICE ASSOCIATE Interval history : Here for follow up for sleep apnea management. SLEEP APNEA Sleep apnea type : JOSE RAFAEL Most Recent Apnea-Hypopnea Index (AHI): 5.3 (HSAT scored 4 %) Treatment : PAP therapy DME: Josh Reese DME fax: [phone] DME ph: [phone] PAP History: Current PAP settin-15 cm H2O. [...] are sorted in reverse-chronological order 04/12/2022 07/23/2022 [place] Sleepiness Scale Score 4 (No clinically significant [...] - Follow up 12 months. Lexus Heck APRN.ROOM SERVICE ASSOCIATE documented in this encounterDayton Osteopathic Hospital09-23-2024 [facility]09-18-20[facility] History of Present illness Narrative* Zita Cuellar NP - 02/09/2024 8:00 AM EDT Images from the original note were not included. CHIEF COMPLAINT REASON FOR VISIT : leg pain HPI: Ariadna Haley is a 43 y.o. female who presents for [facility]. She is at home. She [...] Chronic laryngopharyngitis COVID-19 vaccine administered x 2 (Attention Point) Difficulty walking Fatigue Fibromyalgia, primary GERD (gastroesophageal [...] Depression: Not at risk (12/27/2023) Received from [facility] PHQ-2 PHQ-2 score: 1 REVIEW OF [...] patient, and coordinating care. documented in this encounterFulton State [id number] NoteHNO ID: [id number] Author: ALHAJI HEAD, DO Service: ? Author Type: Physician Type: Progress Notes Filed: 01/27/2024 16:54 Note Text: VIRTUAL VISIT PROGRESS NOTE This is a virtual visit using [employer] Zoom Video Visit. It required patient-provider interaction for the medical decision making as documented below. I have communicated my name and active licensure. The patient's identity and physical location were verified at the time of this visit. Either the patient or their legal traffic representative has been informed of the risks [...] of green drainage. She saw her OB/ fluorescent lighting model maker. This was thought to be secondary to [...] SOB/WHEEZING, and NO DYSPHAG (more content not included)...[facility]09-05-2024 History of Present illness Narrative* Alhaji Head DO - 01/27/2024 10:10 AM EDT Images from the original note were not included. VIRTUAL VISIT PROGRESS NOTE This is a virtual visit using [employer] Zoom Video Visit. It required patient- provider interaction for the medical decision making as documented below. I have communicated my name and active licensure. The patient's identity and physical location wereverified at the time of this visit. Either the patient or their legal traffic representative has been informed of the risks [...] of green drainage. She saw her OB/ fluorescent lighting model maker. This was thought to be secondary to [...] thrush Alhaji Head DO documented in this encounterDayton Osteopathic Hospital09-03-2024 Nurse Note* Margret Cuenca MA - 01/25/2024 11:30 AM EDT Patient Identification confirmed: yes. Injection given and documented on JUL per provider order. Margret Cuenca MA [facility]09-03-2024 Nurse Note* Margret Cuenca MA - 01/25/2024 11:30 AM EDT Patient Identification confirmed: yes. Injection given and documented on JUL per provider order. Margret Cuenca MA documented in this encounterDayton Osteopathic Hospital08-27-2024 History of Present illness Narrative* Arianne [...] outcomes. Aidee Quintanilla PharmD Clinical Pharmacist, [employer] [facility] ; Pool: P [facility] Pool #: [id number] [place] Supervisor Assessment Patient confirmed: Yes Med/dose confirmed: Yes Supplies needed: No supplies needed Missed doses: No Estimated days supply on hand: (At least 1 dose) Next cycle/dose due: 01/20/24 Copay amount: 0 Payment confirmed: Yes Delivery method: FedEx Signature required: Waived on patient request Delivery address: [address] [place] [address] Delivery date: 01/21/24 Questions or concerns for [...] medications on file prior to visit. [facility] CL[facility]ICAL ASSESS[facility] - INFLAMMATORY CONDITIONS [...] no longer tolerated. Arianne Mckinley CPhT, Inflammatory/Allergy [facility] [phone] documented in this encounterDayton Osteopathic Hospital08-21-2024 Telephone encounter Note * Telephone Encounter - Krista Braswell MA - 01/12/2024 10:45 AM EDT Pt has been notified via NeuroSkyhart. [facility]08-21-2024 Miscellaneous Notes* Telephone Encounter - Krista Fonseca MA - 01/12/2024 10:45 AM EDT Pt has been notified via Bizo. * Telephone Encounter - Lynne Ni MD [...] Ni MD * Telephone Encounter - Beatriz Sanchez [...] Ordered Last Rel. CBC + DIFF [SQCBCDIF] 06/28 Every 3 months 06/02/24 06/03/23 11/24/23 Auth. provider: Vera Najera MD Assoc. diagnoses: Megaloblastic anemia due to vitamin B12 deficiency, Elevated sed rate COMP METABOLIC PANEL [SQCMP] 2 Every 3 months 06/02/24 06/03/23 11/24/23 [...] [SQCMP] 03/20/24 06/19/24 12/27/23 Auth. provider: Neda Hill PA-C Assoc. diagnoses: Megaloblastic anemia due to vitamin B12 deficiency, Elevated sed rate, Obstructive sleep apnea syndrome IRON AND TIBC [SQIRON] 03/20/24 06/19/24 12/27/23 Auth. provider: Neda Hill PA-C Assoc. diagnoses: Megaloblastic anemia due to vitamin B12 deficiency, Elevated sed rate, Obstructive sleep apnea syndrome COMPLETE BLOOD COUNT AND DIFFERENTIAL [SQCBCDIF] 03/20/24 06/19/2424 Auth. provider: Neda Hill PA-C Assoc. diagnoses: Megaloblastic anemia due to vitamin B12 deficiency, Elevated sed rate, Obstructive sleep apnea syndrome FERRITIN [SQFERR] 03/20/24 06/19/24 12/27/23 Auth. provider: Neda Hill PA-C Assoc. diagnoses: Megaloblastic anemia due to vitamin B12 deficiency, Elevated sed rate, Obstructive sleep apnea syndrome IMMUNOGLOBULINS,IGG,IGA,IGM [SQSERIMM] 03/20/24 06/19/24 12/27/23 Auth. provider: Neda Hill PA-C Assoc. diagnoses: Megaloblastic anemia due to vitamin B12 deficiency, Elevated sed rate, Obstructive sleep apnea syndrome FOLATE, SERUM [SQSERFOL] 03/20/24 06/19/24 12/27/23 Auth. provider: Neda Hill PA-C Assoc. diagnoses: Megaloblastic anemia due to vitamin B12 deficiency, Elevated sed rate, Obstructive sleep apnea syndrome VITAMIN B12 [SQB12] 03/20/24 06/19/24 12/27/23 Auth. provider: Neda Hill PA-C Assoc. diagnoses: Megaloblastic anemia due to [...] Assoc. diagnoses: Screening-pulmonary TB documented in this encounterDayton Osteopathic Hospital08-21-2024 Telephone encounter Note * Telephone Encounter [...] above. Please process accordingly. Lynne Ni MD [facility]08-21-2024 Telephone encounter Note* Telephone Encounter - [...] [SQCMP] 03/20/24 06/19/24 12/27/23 Auth. provider: Neda Hill PA-C Assoc. diagnoses: Megaloblastic anemia due to vitamin B12 deficiency, Elevated sed rate, Obstructive sleep apnea syndrome IRON AND TIBC [SQIRON] 03/20/24 06/19/24 12/27/23 Auth. provider: Neda Hill PA-C Assoc. diagnoses: Megaloblastic anemia due to vitamin B12 deficiency, Elevated sed rate, Obstructive sleep apnea syndrome COMPLETE BLOOD COUNT AND DIFFERENTIAL [SQCBCDIF] 03/20/24 06/19/24 12/27/23 Auth. provider: Neda Hill PA-C Assoc. diagnoses: Megaloblastic anemia due to vitamin B12 deficiency, Elevated sed rate, Obstructive sleep apnea syndrome FERRITIN [SQFERR] 1006/19/24 12/27/23 Auth. provider: Neda Hill PA-C Assoc. diagnoses: Megaloblastic anemia due to vitamin B12 deficiency, Elevated sed rate, Obstructive sleep apnea syndrome IMMUNOGLOBULINS,IGG,IGA,IGM [SQSERIMM] 03/20/24 06/19/24 12/27/23 Auth. provider: Neda Hill PA-C Assoc. diagnoses: Megaloblastic anemia due to vitamin B12 deficiency, Elevated sed rate, Obstructive sleep apnea syndrome FOLATE, SERUM [SQSERFOL] 03/20/24 06/19/24 12/27/23 Auth. provider: Neda Hill PA-C Assoc. diagnoses: Megaloblastic anemia due to vitamin B12 deficiency, Elevated sed rate, Obstructive sleep apnea syndrome VITAMIN B12 [SQB12] 03/20/24 06/19/24 12/27/23 Auth. provider: Neda Hill PA-C Assoc. diagnoses: Megaloblastic anemia due to [...] Lynne Ni MD Assoc. diagnoses: Screening-pulmonary TB [facility]08-08-2024 Telephone encounter Note* Telephone Encounter - Krista Braswell MA - 12/30/2023 1:34 PM EDT Spoke to pt aware of results and recommendations. [facility]08-08-2024 Miscellaneous Notes* Telephone Encounter - Krista [...] vitamin b12 every month documented in this encounterDayton Osteopathic Hospital08-08-2024 Telephone encounter Note * Telephone Encounter [...] likely reactive, continue vitamin b12 every month [facility]08-05-2024 Telephone encounter Note* Telephone Encounter - Enma Hamm RN - 12/27/2023 12:49 PM EDT Pt informed of MM message and denies any questions, needs or concerns at this time. Appointments verified. Enma Hamm RN [facility]08-05-2024 Miscellaneous Notes* Telephone Encounter - Enma Hamm RN - 12/27/2023 12:49 PM EDT Pt informed of MM message and denies any questions, needs or concerns at this time. Appointments verified. Enma Hamm RN * Telephone Encounter - Neda Hill PA-C - 12/27/2023 12:44 PM EDT Please call and inform the patient that I reviewed her [facility] records and there is no evidence of a blood clot and she does not need to be on blood thinners. Neda Hill PA-C documented in this encounterDayton Osteopathic Hospital08-05-2024 Telephone encounter Note * Telephone Encounter - Neda Hill PA-C - 12/27/2023 12:44 PM EDT Please call and inform the patient that I reviewed her [facility] records and there is no evidence of a blood clot and she does not need to be on blood thinners. Neda Hill PA-C [facility] Work Phone: [phone] Nurse Note* Margret Cuenca MA - 12/27/2023 11:44 AM EDT Patient Identification confirmed: yes. Injection given and documented on MAR per provider order. Margret Cuenca MA [facility]08-05-2024 Nurse Note* Margret Cuenca MA - 12/27/2023 11:44 AM EDT Patient Identification confirmed: yes. Injection given and documented on MAR per provider order. Margret Cuenca MA documented in this encounterDayton Osteopathic Hospital08-05-2024 History of Present illness Narrative* Neda Hill PA-C - 12/27/2023 11:30 AM EDT Images from the original note were not included. NAME: lazarofrancisco javierAriadna [facility] NO.: [id number] DATE OF SERVICE: December 27, 2023 (Liz) [...] labs 1 week before. Request records from [facility] from [place]/elevated d-dimer Frequent infections and [...] lower lip done 2 days ago at [facility] - awaiting results. B12 helps [...] injections. Shefollows with multiple doctors including and certified marine mechanic, residential advisor, events solutions consultant and PCP. She has been told [...] which included preparing to see the patient, [id number] patient care, completing clinical documentation, obtaining and/or reviewing separately obtained history, performing a medically appropriate examination, counseling and educating the pat ient/family/caregiver, ordering medications, tests, or procedures, communicating with other HCPs (not separately reported), independently interpreting results (not separately reported), communicatingresults to the patient/family/caregiver, and care coordination (not separately reported). Neda Hill PA-C Hematology and Oncology Services Provided at: [place], [place] CC: Manuel Ferris MD [address] [facility] [address] documented in this encounterDayton Osteopathic Hospital07-22-2024 History of Present illness Narrative* Elton (Voucher Examiner)Luda - 12/13/2023 11:44 AM EDT [facility] [...] laboratory parameters, disease state markers and outcomes. [employer] [place] [place] Supervisor Assessment Patient confirmed: Yes Med/dose confirmed: Yes Missed doses: No Estimated days supply on hand: 1 Next cycle/dose due: 12/16/23 Copay amount: 0 Payment confirmed: Yes Delivery method: FedEx Signature required: Waived on patient request Delivery address: [address] [place] [address] Delivery date: 12/17/23 Questions or concerns for [...] medications on file prior to visit. [facility] CL[facility]ICAL ASSESS[facility] - INFLAMMATORY CONDITIONS V6: Assessment to use: Refill [facility] VACCINE INFORMATION [facility] TREATMENT PLAN INFORMATION [facility]uda [facility] [phone] documented in this encounterDayton Osteopathic Hospital07-08-2024 Nurse Note* Stacy Gutiérrez MA - 11/29/2023 1:47 PM EDT Patient Identification confirmed: yes. Injection given and documented on JUL per provider order. Stacy Gutiérrez MA [facility]07-08-2024 Nurse Note* Stacy Gutiérrez MA - 11/29/2023 1:47 PM EDT Patient Identification confirmed: yes. Injection given and documented on JUL per provider order. Stacy Gutiérrez MA documented in this encounterDayton Osteopathic Hospital07-05-2024 Telephone encounter Note * Telephone Encounter - Katherin Schneider RN - 11/26/2023 11:34 AM EDT Please sign pended script Maryam Schneider RN [facility]07-05-2024 Miscellaneous Notes* Telephone Encounter - Katherin Schneider RN - 11/26/2023 11:34 AM EDT Please sign pended script Maryam Schneider RN documented in this encounterDayton Osteopathic Hospital06-24-2024 History of Present illness Narrative* Aidee Quintanilla [facility] - 11/15/2023 1:00 PM EDT [...] laboratory parameters, disease state markers and outcomes. [employer] [place] Supervisor Assessment Patient confirmed: Yes Med/dose confirmed: Yes Missed doses: No Estimated days supply on hand: 1 Next cycle/dose due: 11/18/23 Copay amount: 0 Payment confirmed: Yes Delivery method: FedEx Signature required: Waived on patient request Delivery address: [address] [place] [address] Delivery date: 11/17/23 Questions or concerns for [...] facility-administered medications on file prior to visit. [facility] Visit Assessment - Inflammatory [...] efficacy: Yes Roland CamarilloD Clinical Pharmacist, [employer] [facility] ; Pool: P [facility] Pool #: [id number] documented in this encounterDayton Osteopathic Hospital06-20-2024 Telephone encounter Note * Telephone Encounter - Lynne iN MD - 11/11/2023 4:14 PM EDT Notify patient medication sent as requested Thank you. Patient's request for medication is as follows: Requested Prescriptions Pending Prescriptions Disp Refills azaTHIOprine (IMURAN) 50 mg tablet 270 tablet 1 Sig: TAKE 3 TABLETS BY MOUTH DAILY WITH FOOD. HOLD IF ON ANTIBIOTICS OR ILL. Prescription(s) as above. Please process accordingly. Lynne Ni MD [facility]06-20-2024 Miscellaneous Notes* Telephone Encounter - Lynne [...] High total serum IgM documented in this encounterDayton Osteopathic Hospital06-20-2024 Telephone encounter Note * Telephone Encounter [...] vitamin B12 deficiency, High total serum IgM [facility]06-06-2024 Telephone encounter Note* Telephone Encounter - Karina Morales RN - 10/28/2023 1:33 PM EDT Pt read Bizo message. [facility]06-06-2024 Miscellaneous Notes* Telephone Encounter - Karina Morales RN - 10/28/2023 1:33 PM EDT Pt read Bizo message. * Telephone Encounter - Lynne Ni [...] soon! Warm regardsDr.Tsai :) documented in this encounterDayton Osteopathic Hospital06-06-2024 Telephone encounter Note * Telephone Encounter [...] feel better soon! Warm Dr.Tsai oziel :) [facility]06-05-2024 Nurse Note* Margret Cuenca MA - 10/27/2023 2:43 PM EDT Patient Identification confirmed: yes. Injection given and documented on JUL per provider order. Margret Ceunca MA [facility]06-05-2024 Nurse Note* Margret Cuenca MA - 10/27/2023 2:43 PM EDT Patient Identification confirmed: yes. Injection given and documented on JUL per provider order. Margret Cuenca MA documented in this encounterDayton Osteopathic Hospital05-14-2024 History of Present illness Narrative* Lynne Ni [...] visit. 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 Labs sent to elizabeth/completed in 06/2021 (no results faxed to office, but patient pulled up results on her phone). Chronic current pain in neck, flank area, mid back, knees, legs, arms, all over pain. Better with lyrica 75mg 3times a day. Reports pain 4-8/10. Couple hrs AM stiffness. COVID vaccine Attention Point 09/28/20, 10/19/20, 05/26/21. Feels safe at home. [...] COVID-19 original vaccine, age 12+ yr, monovalent (Taasera - PURPLE TOP) 09/28/2020 10/19/2020 05/26/2021 COVID-19 vaccine, age 12+ yr, 2022- season (Taasera) 02/23/2023 COVID-19 vaccine, age 12+ yr, bivalent (Taasera) 02/08/2022 Pneumovax no Flu shot no Tetanus [...] (33);NL cbc, cmp, negative hla b27; Outside [place] 06/2021 low vitamin D 16, vitamin b12-307;high [...] measures, may consider osteoporosis treatment if on long goods drier steroids/abnormal bmd, take vitamin D script once [...] (200mg) daily with a meal Please see debone supervisor every 6-12months while on Hydroxychloroquine. Start azathioprine [...] touching your toes, sit-ups, using row machine long goods drier pain recommendations per primary care provider/pain clinic [...] video & audio (virtual) or phone or [id number] patient care, completing clinical documentation, obtaining and/or [...] Workers' Compensation? No Do you need an hatchery manager? No [facility] MYCHART ZOOM MESSAGE Question 2023 11:04 [...] 3 (WITHIN +/- 5) documented in this encounterDayton Osteopathic Hospital05-09-2024 Nurse Note* Renea Schneider MA - 09/30/2023 10:53 AM EDT Patient Identification confirmed: yes. Injection given and documented on JUL per provider order. Renea Schneider MA [facility]05-01-2024 Evaluation note* Author Ketty Mccall [facility] Authored September 22, 2023 2:55pm 42-year-old female [...] switch omeprazole to pantoprazole and monitor symptoms [facility] Work Phone: [phone]) 911-106404-18-2024 Instructions* Patient Instructions* Vera Najera MD - 09/09/2023 4:47 PM EDT Follow up in 13 Weeks - labs 1 week before. B12 shot every 4 weeks. Continue Folic acid. documented in this encounterDayton Osteopathic Hospital04-18-2024 History of Present illness Narrative* Vera Najera MD - 09/09/2023 4:30 PM EDT NAME: Ariadna Haley [facility] NO.: [id number] DATE OF SERVICE: September 09, 2023 (Marquis) Some elements in this clinic note that are critical to medical decision making have been carefully reviewed and included from a prior clinic note dated: June 10, 2023 (Marquis) Referring Provider: Dr. Manuel Ferris Additional Clinicians involved in Ariadna Haley's care: VIRTUAL VISIT PROGRESS NOTE This is a virtual visit using viaCycleer Video Call. It required patient- provider interaction for the medical decision making as documented below. I have communicated my name and active licensure. The patient's identity and physical location wereverified at the time of this visit. Either the patient or their legal traffic representative has been informed of the risks [...] lower lip done 2 days ago at [facility] - awaiting results. B12 helps [...] injections. Shefollows with multiple doctors including and certified marine mechanic, residential advisor, events solutions consultant and PCP. She has been told [...] CPE Hematology and Oncology Services Provided at: [place], [place] CC: Manuel Ferris MD [address] [facility] [address] documented in this encounterDayton Osteopathic Hospital04-15-2024 Miscellaneous Notes* Telephone Encounter - Maynor Bryson MA - 09/06/2023 7:21 AM EDT patient has viewed the Bizo message per [employer] [address] [employer]. * Telephone Encounter - Lynne Ni MD - 09/04/2023 6:30 PM EDT Please Call patient if [facility] note not read to review results/released to [...] accordingly. Lynne Ni MD documented in this [facility]04-09-2024 Nurse Note* Margret Cuenca MA - 08/31/2023 10:35 AM EDT Patient Identification confirmed: yes. Injection given and documented on JUL per provider order. Margret Cuenca MA documented in this [facility] [place]04-01-20[place] Nurse Note* Renea Schneider MA - 09/30/2023 10:53 AM EDT Patient Identification confirmed: yes. Injection given and documented on JUL per provider order. Renea Schneider MA documented in this [facility]03-14-2024 Nurse Note* Margret Cuenca - 08/05/2023 11:16 AM EDT Patient Identification confirmed: yes. Injection given and documented on JUL per provider order. Margret Cuenca documented in this [facility] [place]02-20-2024 Nurse Note* Margret Cuenca - 07/13/2023 12:01 PM EST Patient Identification confirmed: yes. Injection given and documented on JUL per provider order. Margret Cuenca documented in this [facility] [place]02-20-2024 History of Present illness Narrative* Lois Holm [...] and is being cared for at the [facility] utilizing steroids, Plaquenil and injectable medic ation(Benlystal). The patient record indicating having had cardiac catheterization in [place] 3 years ago which was normal. I have the report available for my review. [facility] [...] lupus being treated by rheumatology at the [facility] on steroids, Plaquenil and monoclonal antibody 5-sleep [...] , Rfl: ergocalciferol (Vitamin D-2) 1.25 MG (08961 UT) capsule, Take 1 capsule (50,000 Units) [...] Scribe Attestation By signing my name below, shannon Dorantesiclwayne , Scribe attest that this documentation has [...] exam, discussion and plan. documented in this [facility]Community [facility] Work Phone: 1(684) 804-974702-20-2024 Instructions* Patient Instructions* Lila Tejeda LPN - [...] time of your visit. documented in this encounterCommunity [facility] Hospital Work Phone: 1(550) 832-704602-13-2024 History of Present illness Narrative* Kade Richardson [...] , Rfl: ergocalciferol (Vitamin D2) 1.25 MG (66981 UT) capsule, Take 50,000 Units by mouth [...] Chronic laryngopharyngitis COVID-19 vaccine administered x 2 ([place]) History of removal of cyst 2013 tailbone [...] reflexes: Stu's absent. Ankle clonus absent. Coordination Sjeenz-ad-qhkb, rapid alternating movements and qvrd-jo-cmyh normal bilaterally without dysmetria. Gait Normal casual, toe, heel and tandem gait. Romberg is absent. Assessment/Plan Diagnoses and all orders for this visit: Autoimmune disease ([facility]) - Protein electrophoresis, serum; Future - Protein [...] Lyrica 100 mg TID. She is on jwkdbklrbu49 mg once daily. Increase prednisone 10 mg BID for 10 days. documented in this encounterFulton State [id number] History of Present illness Narrative* Michelle Jasmine, [employer] CRM DEVELOPER-ROOM SERVICE ASSOCIATE - 06/09/2023 8:30 AM EST Ariadna Haley is a 42 y.o. female that presents to the office today for new patient evaluation asself referral for palpitations and elevated heart rates. She has a PMH of HTN, HLD, tachycardia, anemia, JOSE RAFAEL with CPAP compliance, lupus, autonomic dysfunction, arthritis, chronic back pain. She has undergone cardiac workup in the past in [place] as noted below. She also states that she follows withNeurology for possible POTS syndrome. Admits to daily tobacco use, 1 pack of cigarettes per day. Denies vaping, ETOH, recreational drugs. Admits to drinking approximately 1 pot of coffee per day. Denies daily exercise. 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 Family history negative [...] Anemia, unspecified Anxiety Autonomic dysfunction Depression, recurrent ([facility]) Discoid lupus erythematosus Chronic bilateral low back [...] , Rfl: ergocalciferol (Vitamin D-2) 1.25 MG (35133 UT) capsule, Take 1 capsule (50,000 Units) [...] Anemia, unspecified Anxiety Autonomic dysfunction Depression, recurrent ([facility]) Discoid lupus erythematosus Chronic bilateral low back pain with bilateral sciatica Hyperlipidemia Obesity, Class III, BMI 40-49.9 (morbid obesity) ([facility]) Obstructive sleep apnea syndrome Arthritis Tachycardia Vitamin [...] to prepare this document. documented in this [facility] Work Phone: 1(688) 437-812901-03-2024 Instructions* Patient Instructions* Christie Phan MD - 05/26/2023 5:43 PM EST Images from the original note were not included. https://MPGomatic.com/tofu-bolognese/ https://nutritionstudies.org/mym-es-yxjtwtcis-sswaxxfx-ph-puanb-e-pqgbo-zafr-randee fx-hhueo-cwuvjwgmt/ https://www.Videodeclasse.com/blog/plantbasedkids https://CNZZ/rbtcb-fqhsd-ieqc-for-kids/ https://Akros Silicon/utz-ay-dnuljifros-iuum-czde-xo-m-wmloe-ecsvr-diet/ WHAT TO EAT? Breakfast: Overnight Oats Base ingredients: 1/3 cup rolled oats, 1/3 cup plain almond milk, 1tsp kyle seeds. Optional add-ins: cinnamon, flax seeds, honey or maple syrup, nut butter, chopped nuts. Toppings: Any fresh fruit chopped. Mix together and place in refrigerator. Can make 5 at a time for the whole week. Homemade fresh oatmeal. Can also make in the crockpot. Guyanese muffin/almond butter topped with fresh berries Guyanese muffin, cooked egg/egg white, tomato, thin slice cameroonian cheese Fresh berries, hard boiled egg, whole wheat toast Plain yogurt topped with berries, unsalted nuts, drizzle of honey Whole grain toast/Guyanese muffin topped with mashed avocado and tomatoes Lunch: Dinner leftovers packed in Tupperware, side of fruit Salad mixture topped with a protein (chick breast/tuna/hard boiled egg/beans), dressing and side offruit Dinner - Refer to plate forming tube selector pictures to help select foods and portion ratios of protein, vegetables/starches. Keep it simple and rotate your favorite meals. Sheet nix meals Soups Grilled protein/vegetables/side of starch (plate forming tube selector picture) Stir can with protein, mixed vegetables, and riced cauliflower or portion controlled whole grain rice. Make your own bowls - Kiswahili/Nicaraguan/ theme [place] with Zoodles (spiralized vegetable noodles). Roasted vegetable wraps Alter traditional recipes to reflect HIGH QUALITY ingredients in the right QUANTITIES. Snacks - portion controlled: Raw veggies (can have with hummus, mashed avocado, salsa). Unsalted nuts Fruit (1 serving). (optional side of peanut butter) Air pop popcorn [place] and low fat cameroonian cheese rolled up String cheese Protein balls (mix rolled oats, nut butter, flax seeds, dash almond milk). Beverages: Water Coffee, Hot tea Unsweetened ice tea EATING OUT: Research menu online, include nutritional information. Make your order decision before getting to restaurant. Stick to recommended portions (plate forming tube selector picture). Ask for substitutions or modifications. Consider [...] baked potato, sprouted grain bread, chick peas https://www.My COI.com/article/4481062/mtginatmychoc-tjtc-fhvv-for-beginners / https://www.eatingwell.com/category/4274/vohoofnvnjqkg-mcun-hcoeia/ https://www.eatingwell.com/category/4300/iuhoxxhnvmeqq-ccao-tbpf-plans/ My current favorite cookbooks are documented in this encounterDayton Osteopathic Hospital01-03-2024 History of Present illness Narrative* Christie Phan MD - 05/26/2023 5:00 PM EST Images from the original note were not included. [facility] Follow-Up Appointment [...] the date of the service which included syss-le-xwcy patient care, completing clinical documentation, performing a medically appropriate examination, counseling and educating the patient/family/caregiver, and ordering medications, tests, or procedures. Christie Phan MD, [place], [facility] Lifestyle Medicine Specialist documented in this encounterDayton Osteopathic Hospital12-04-2023 Miscellaneous Notes* Telephone Encounter - Renate Lawrence MA - 04/26/2023 5:26 PM EST Medication pending with new pharmacy information. documented in this encounterDayton Osteopathic Hospital12-04-2023 History of Present illness Narrative* Christie Phan MD - 04/26/2023 4:15 PM EST Images from the original note were not included. [facility] Virtual Follow-Up [...] the date of the service which included brlr-tg-mgsg patient care, completing clinical documentation, performing a medically appropriate examination, counseling and educating the patient/family/caregiver, and ordering medications, tests, or procedures. I have communicated my name and active licensure. The patient's identity and physical location wereverified at the time of this visit. Either the patient or their legal traffic representative has been informed of the risks and benefits of -- and alternatives to -- treatment through a remote evaluation andconsents to proceed with the evaluation remotely. Christie Phan MD, MA, [facility] Lifestyle Medicine Specialist documented in this encounterDayton Osteopathic Hospital12-04-2023 Nurse Note* Renate Lawrence MA - 04/26/2023 2:46 PM EST Spoke to Ariadna Haley, confirmed patient is registered on [employer] and is prepared for their appointment. Confirmed the patient has updated medications, allergies, and questionnaires via [employer]. Informed patient if there is an issue with the connection, provider will send the patient a secure link. If provider is running late, patient should remain connected to the visit. Patient verbalized understanding. documented in this encounterDayton Osteopathic Hospital11-30-2023 Miscellaneous Notes* Telephone Encounter - Enma Hamm, RN - 04/22/2023 3:48 PM EST Pt called for Iron results; possible need for transfusion. Pt aware no need for iron infusion at this time. Enma Hamm, RN documented in this encounterDayton Osteopathic Hospital11-24-2023 History of Present illness Narrative* Kenzie Shannon - 04/16/2023 10:55 AM EST Patient Identification confirmed: yes. Injection given and documented on JUL per provider order. Kenzie Shannon documented in this encounterDayton Osteopathic Hospital10-27-2023 History of Present illness Narrative* Kenzie Shannon - 03/19/2023 11:06 AM EDT Patient Identification confirmed: yes. Injection given and documented on JUL per provider order. Kenzie Shannon documented in this encounterDayton Osteopathic Hospital10-24-2023 History of Present illness Narrative* Marija Zigeler - 03/16/2023 10:13 AM EDT CMN RECEIVED BY [employer] VIA FAX, COMPLETED, AND PLACED IN PROVIDER MAILBOX FOR SIGNATURE On 2022 By Marija Ziegler [employer] Supervisor II. Snappy shuttle SENDING CMN: JOSH SIGNED AND DATED CMN, FAXED TO DME & CONFIRMATION PAGE RECEIVED: 03.24.23 documented in this [facility]10-19-2023 History of Present illness Narrative* Beatriz Sanchez [...] LPN In Department: RHEUMATOLOGY documented in this encounterDayton Osteopathic Hospital10-18-2023 Miscellaneous Notes* Telephone Encounter - Christie Phan MD - 03/10/2023 2:18 PM EDT Spoke with patient. We stopped her trulicity because of side effects. She only took the cymbalta for a week. She will restart and we will see how she is doing in 2 months. Have also ordered insulin labs to check for insulin resistance. documented in this encounterDayton Osteopathic Hospital10-09-2023 Miscellaneous Notes* Telephone Encounter - Lynne Ni MD - 03/01/2023 3:27 PM EDT For chart: Eye exam 02/26/23 no ocular complication related to medication. * Telephone Encounter - Beatriz Sanchez LPN - 03/01/2023 2:38 PM EDT [facility] from [facility] Placed on your desk for review. documented in this encounterDayton Osteopathic Hospital09-29-2023 Nurse Note* Radha Kebede MA - 02/19/2023 11:48 AM EDT Patient Identification confirmed: yes. Injection given and documented on JUL per provider order. Radha Schofield MA documented in this encounterDayton Osteopathic Hospital09-29-2023 Instructions* Patient Instructions* Vera Najera MD - 02/19/2023 11:40 AM EDT B12 shot today and every 4 weeks. Continue Folic acid. Follow up in 8 Weeks - labs 1 week before. documented in this encounterDayton Osteopathic Hospital09-29-2023 History of Present illness Narrative* Vera Najera MD - 02/19/2023 11:32 AM EDT Images from the original note were not included. AMBULATORY TELEPHONE VISIT Ariadna B Jose Carlosfrancisco javier has consented to this telephone encounter. Persons Present: Patient and myself Chief Complaint/Reason: Anemia; To review recent blood work. HPI: Total Time Spent: 21 minutes Rebekah Rojas APRN.ROOM SERVICE ASSOCIATE NAME: Ariadna Haley CLINIC NO.: [id number] DATE OF SERVICE: February 19, 2023 ([facility]) [...] lower lip done 2 days ago at [facility] - awaiting results. B12 helps [...] injections. Shefollows with multiple doctors including and certified marine mechanic, residential advisor, events solutions consultant and PCP. She has been told [...] which included preparing to see the patient, dlkf-pt-atrl patient care, completing clinical documentation, performing a medically appropriate examination, counseling and educating the patient/family/caregiver, ordering medications, tests, or p rocedures, and independently interpreting results (not separately reported). Vera Najera MD, CPE Hematology and Oncology Services Provided at: [place], [place] CC: Manuel Ferris MD [address] [facility] [address] documented in this encounterDayton Osteopathic Hospital09-26-2023 Miscellaneous Notes* Telephone Encounter - Lynne [...] Department RAYRAY INJECTION TEACHING 03/11/2023 7:30 AM [facility] NICKIE VIDEO SPEC EST 08/12/2023 9:00 AM [facility] NICKIE Last Ophthalmology Check for Plaquenil (Hydroxychloroquine) [...] diagnoses: Vitamin D deficiency documented in this encounterDayton Osteopathic Hospital09-18-2023 Miscellaneous Notes* Telephone Encounter - Mirela Carlos - 02/08/2023 11:12 AM EDT Spoke with patient Will get labs done when she does labs in Dec for Dre/Onc Mailed orders for DXA to pt so she can go to [facility] Pre cert Benlyst Scheduled Teaching visit for [...] accordingly. Lynne Ni MD documented in this encounterDayton Osteopathic Hospital09-14-2023 History of Present illness Narrative* Carlene Rendon - 02/04/2023 9:31 AM EDT [facility] received prescription(s) for Benlysta from Dr. Ni. Benefits investigation was conducted, indicating that a prior authorization is required by patients plan with [facility]. Encounter will be updated once prior authorization has been submitted by [facility]. Carlene Rendon CPhT [facility], Inflammatory P: [phone] F: [phone] documented in this encounterDayton Osteopathic Hospital09-14-2023 History of Present illness Narrative* Lynne iN MD - 02/04/2023 8:20 AM EDT THIS [...] visit. Either the patient or their legal traffic representative has been informed of the risks [...] Due for eye exam. Labs sent to [facility]/completed in 06/2021 (no results faxed to office, [...] pain: yes H/o precedent/frequent infection(s): as above Enthesopathy/Peapack's/heel/plantar tenderness: hands random painful/tingling Skin thickening, psoriasis, [...] COVID-19 original vaccine, age 12+ yr, monovalent (Taasera - PURPLE TOP) 09/28/2020 10/19/2020 05/26/2021 COVID-19 vaccine, age 12+ yr, bivalent (Taasera) 02/08/2022 Pneumovax no Flu shot no Tetanus [...] (33);NL cbc, cmp, negative hla b27; Outside [place] 06/2021 low vitamin D 16, vitamin b12-307;high [...] rate M25.531, M25.532 Bilateral wrist pain Z79.52 shelter 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 M81.8, T38.0X5A [...] measures, may consider osteoporosis treatment if on skilled nursing steroids/abnormal bmd, take vitamin D script if [...] neurology/on metoprolol for POTs, avoid aggravating triggers, long goods drier pain recommendations per primary care provider/pain clinic/patient currently declined cymbalta/lyrica, see ortho, prn brace, start fall precautions, answered all questions and concerns, patient voiced understanding. RECOMMENDATION/PLAN: [facility] on 02/04/23 DXA-AXIAL SKELETON DXA-FOREARM SKELETON Reviewed labs/tests with patient Provided printed info 02/04/23 precert for dez 02/04/23 check nonfasting labs every 3months 02/04/23 [...] (200mg) daily with a meal Please see debone supervisor every 6-12months while on Hydroxychloroquine. Start azathioprine [...] video & audio (virtual) or phone or fqrv-yz-scjj patient care, completing clinical documentation, obtaining and/or [...] cc Gay Enciso CNP;Dr.Douglas Sai Ferris MD [facility] AMBULATORY VISIT INTAKE QUESTIONNAIRE Question 02/02/2023 10:32 [...] Workers' Compensation? No Do you need an hatchery manager? No [facility] MYCHART ZOOM MESSAGE Question 02/02/2023 10:32 [...] < or = 5) documented in this encounterDayton Osteopathic Hospital09-14-2023 Instructions* Patient Instructions* Lynne Ni MD [...] (200mg) daily with a meal Please see debone supervisor every 6-12months while on Hydroxychloroquine. azathioprine daily [...] touching your toes, sit-ups, using row machine long goods drier pain recommendations per primary care provider/pain clinic [...] your usual activities immediately. documented in this encounterDayton Osteopathic Hospital09-05-2023 Miscellaneous Notes* Telephone Encounter - Maynor Bryson MA - 01/26/2023 7:46 AM EDT patient has viewed the Bizo message per [employer]. * Telephone Encounter - Lynne Ni MD - 01/24/2023 8:04 PM EDT Please Call patient if [employer] note not read to review results/released to My Chart if tests completed at [facility]: mildly high normal wbc- will [...] accordingly. Lynne Ni MD documented in this encounterDayton Osteopathic Hospital09-01-2023 Nurse Note* Radha Kebede MA - 01/22/2023 12:17 PM EDT Patient Identification confirmed: yes. Injection given and documented on JUL per provider order. Radha Schofield MA documented in this encounterDayton Osteopathic Hospital08-22-2023 Miscellaneous Notes* Telephone Encounter - Christie [...] the above prescription(s) to electronically send to [facility] pharmacy. Milagro Mendiola MA documented in this encounterDayton Osteopathic Hospital08-11-2023 History of Present illness Narrative* Misty Nelson MD - 01/01/2023 10:51 AM EDT VIRTUAL VISIT PROGRESS NOTE This is a virtual visit using [facility] video visit. It required patient-provider interaction for themedical decision making as documented below. I have communicated my name and active licensure. The patient's identity and physical location wereverified at the time of this visit. Either the patient or their legal traffic representative has been informed of the risks [...] otitis or sinusitis No pneumonia She sees residential advisor and was diagnosed with lupus She is on Plaquenil, azathioprine Prednisone 10mg once daily for the past year; every few months she gets treated with higher doses of prednisone for flares of her symptoms The medications seem to help the body aches She saw the roofer assistant Treated with B12 and folic acid We [...] visit. Misty Nelson MD documented in this encounterDayton Osteopathic Hospital07-28-2023 Miscellaneous Notes* Telephone Encounter - Rebekah Rojas APRN.CNP - 12/18/2022 10:48 AM EDT Spoke with patient this morning, 12/18/2022. Rebekah Rojas APRN.CNP * Telephone Encounter - Lidia Argueta RN - 12/18/2022 9:31 AM EDT Pt called photovoltaic fabrication technician service last evening stating she was suppose to have a phone call with Rebekah at 330 and never received a call. Pt is still waiting (536 pm 12/17/22). Please advise Lidia Argueta RN documented in this encounterDayton Osteopathic Hospital07-28-2023 History of Present illness Narrative* Rebekah [...] Total Time Spent: 21 minutes Rebekah Rojas APRN.ROOM SERVICE ASSOCIATE NAME: Ariadna Haley CLINIC NO.: [id number] DATE OF SERVICE: October 22, 2022 ([facility]) [...] lower lip done 2 days ago at [facility] - awaiting results. B12 helps [...] injections. Shefollows with multiple doctors including and certified marine mechanic, residential advisor, events solutions consultant and PCP. She has been told [...] ECOG PERFORMANCE STATUS: 0 PHYSICAL EXAMINATION: Vitals: [facility] 02/26/2022 There is no height or [...] which included preparing to see the patient, vzqb-em-misu patient care, completing clinical documentation, performing a medically appropriate examination, counseling and educating the patient/family/caregiver, ordering medications, tests, or p rocedures, and independently interpreting results (not separately reported). Vera Najera MD, CPE Hematology and Oncology Services Provided at: [place], [place] CC: Manuel Ferris MD [address] [facility] [id number] documented in this encounterDayton Osteopathic Hospital07-26-2023 Miscellaneous Notes* Telephone Encounter - Pamella Bettencourt RN - 12/16/2022 1:14 PM EDT Pt notified and verbalizes understanding. Clerical: Please change tomorrow's appointment to a phone visit at the end of Rebekah's day. Preferred number is [phone]. In addition, pt will be in next 12/25/22 @ 1130 for her B12 shot. Please add her to the MA schedule. Thanks! Pamella Bettencourt RN * Telephone Encounter - Rebekah Rojas APRN.CNP - 12/16/2022 12:56 PM EDT That would be okay. Have her added at the end of the day. Thanks, Rebekah Rojas APRN.ROOM SERVICE ASSOCIATE * Telephone Encounter - Pamella Bettencourt RN [...] schedule? Pamella Bettencourt RN documented in this encounterDayton Osteopathic Hospital07-23-2023 Miscellaneous Notes* Telephone Encounter - Vera [...] advise Enma Hamm, RN documented in this encounterDayton Osteopathic Hospital07-04-2023 Miscellaneous Notes* Telephone Encounter - Lynne [...] accordingly. Lynne Ni MD documented in this encounterDayton Osteopathic Hospital06-29-2023 Nurse Note* Margret Cuenca - 11/19/2022 11:01 AM EDT Patient Identification confirmed: yes. Injection given and documented on JUL per provider order. Margret Cuenca documented in this encounterDayton Osteopathic Hospital06-01-2023 Nurse Note* Stacy Gutiérrez Ma - 10/22/2022 11:50 AM EDT Patient Identification confirmed: yes. Injection given and documented on JUL per provider order. Stacy Gutiérrez Ma documented in this [facility]-01-2023 Instructions* Patient Instructions* Vera Najera MD - 10/22/2022 11:43 AM EDT B12 Shot today and every 4 weeks. Continue Folic acid. Follow up in 8 Weeks - labs 1 week before. documented in this encounterDayton Osteopathic Hospital06-01-2023 History of Present illness Narrative* Vera Najera MD - 10/22/2022 11:35 AM EDT Images from the original note were not included. NAME: Ariadna Haley CLINIC NO.: [id number] DATE OF SERVICE: October 22, 2022 ([facility]) [...] 1 week before. HPI: CASE HISTORY: Currently 2022 ongoing and generalized malaise with elevated IgM. 2020 lymph node biopsy from neck negative for malignancy. 2020 had a respiratory illness with dyspnea, possible bronchitis, no cough Updated Visit, October 22, 2022: Increased dose of imuran for Lupus and thinks she is starting to feel a little better Had a biopsy of her lower lip done 2 days ago at [facility] - awaiting results. B12 helps [...] injections. Shefollows with multiple doctors including and certified marine mechanic, residential advisor, events solutions consultant and PCP. She has been told [...] which included preparing to see the patient, kdog-om-mqiv patient care, completing clinical documentation, performing a medically appropriate examination, counseling and educating the patient/family/caregiver, ordering medications, tests, or p rocedures, and independently interpreting results (not separately reported). Vera Najera MD, CPE Hematology and Oncology Services Provided at: [place], [place] CC: Manuel Ferris MD [address] [facility] [id number] documented in this encounterDay[facility]23 Nurse Note* Stacy Gutiérrez Ma - 09/24/2022 10:22 AM EDT Patient Identification confirmed: yes. Injection given and documented on JUL per provider order. Stacy Gutiérrez Ma documented in this encounterDayton Osteopathic Hospital04-18-2023 Miscellaneous Notes* Telephone Encounter - Stacy Hernandez - 09/08/2022 2:27 PM EDT Pharmacy-Reviewed Medication History Patient Name:.Ariadna Haley : 1980 Patient Contact Attempt: First attempt Adherence Packing Program Accepted? No, patient does not wish to participate. Patient is not eligible for adherence packaging because PCP is not within [facility]. Patient wishes to continue at [facility] since medication bottles will look the same and then she can pick-up the medications when she needs them. Stacy Hernandez September 08, 2022 2:28 PM [facility] [phone] documented in this encounterDayton Osteopathic Hospital04-17-2023 History of Present illness Narrative* Christie Phan MD - 09/07/2022 2:00 PM EDT Images from the original note were not included. [facility] Virtual Follow-Up [...] which included preparing to see the patient, yajt-lx-ovua patient care, completing clinical documentation, performing a medically appropriate examination, counseling and educating the patient/family/caregiver, ordering medications, tests, or p rocedures, and communicating with other HCPs (not separately reported). I have communicated my name and active licensure. The patient's identity and physical location wereverified at the time of this visit. Either the patient or their legal traffic representative has been informed of the risks and benefits of -- and alternatives to -- treatment through a remote evaluation andconsents to proceed with the evaluation remotely. Christie Phan MD, [place], [facility] Lifestyle Medicine Specialist documented in this encounterDayton Osteopathic Hospital04-17-2023 Nurse Note* Milagro Mendiola MA - 09/07/2022 2:00 PM EDT Called pt to do intake for video visit pt unavailable lft vm msg sent my chart. Milagro Mendiola MA documented in this encounterDayton Osteopathic Hospital04-10-2023 Miscellaneous Notes* Telephone Encounter - Shantel Higgins MA - 08/31/2022 8:38 AM EDT called [facility] pharmacy - pharmacy had 1 refill remaining no action needed from our office documented in this encounterDayton Osteopathic Hospital04-06-2023 Nurse Note* Stacy Gutiérrez Ma - 08/27/2022 10:31 AM EDT Patient Identification confirmed: yes. Injection given and documented on JUL per provider order. Stacy Gutiérrez Ma documented in this encounterDayton Osteopathic Hospital04-06-2023 History of Present illness Narrative* Rebekah Rojas APRN.ROOM SERVICE ASSOCIATE - 08/27/2022 10:00 AM EDT Images from the original note were not included. NAME: Ariadna Haley [facility] NO.: [id number] DATE OF SERVICE: August 27, 2022 (Bob) [...] injections. Shefollows with multiple doctors including and certified marine mechanic, residential advisor, events solutions consultant and PCP. She has been told [...] APRN.CNP Hematology and Oncology Services Provided at: [place], [place] CC: Manuel Ferris MD [address] [facility] [address] I spent a total of 30 minutes on the date of the service which included preparing to see the patient, nise-vc-jtvl patient care, completing clinical documentation, obtaining and/or reviewing separately obtained history, performing a medically appropriate examination, counseling and educating the pat ient/family/caregiver, ordering medications, tests, or procedures, independently interpreting results (not separately reported), and communicating results to the patient/family/caregiver. documented in this encounterCleveland [id number] Miscellaneous Notes* Telephone Encounter - Freda Noland RN - 08/19/2022 6:42 PM EDT -noted MyChart message read by patient 08/19/22 . Last read by Ariadna Haley at 3:33 PM on 08/19/2022 * Telephone Encounter - Lynne Ni MD - 08/19/2022 3:21 PM EDT Please Call patient if MyChart note not read to review results/released to My Chart if tests completed at [facility]: Improved/ mildly high normal inflammatory test- will monitor. Improved/mildly low vitamin b12- take over the counter 3763-0167 mcg daily. Improved/ normal rest of rheum [...] accordingly. Lynne Ni MD documented in this encounterDayton Osteopathic Hospital03-28-2023 Miscellaneous Notes* Telephone Encounter - Beatriz [...] accordingly. Lynne Ni MD documented in this encounterDayton Osteopathic Hospital03-20-2023 Miscellaneous Notes* Telephone Encounter - Christie Phan MD - 08/10/2022 9:46 AM EDT [facility] requesting refill, patient never started according to the chart and I have not seen her in follow-up. * Telephone Encounter - Jami Everett Cma - 08/10/2022 7:40 AM EDT [facility] Pharmacy request for the following refill(s): Requested Prescriptions Pending Prescriptions Disp Refills DULoxetine (CYMBALTA) 20 mg capsule [Pharmacy Med Name: DULOXETINE HCL DR 20 MG CAP] 30 capsule 2 Sig: TAKE 1 CAPSULE BY MOUTH ONCE DAILY Please review and advise. Jami Everett Cma documented in this encounterDayton Osteopathic Hospital03-06-2023 Instructions* Patient Instructions* Lexus Heck APRN.ROOM SERVICE ASSOCIATE - 07/27/2022 9:12 PM EST Images from the original note were not included. Your most recent body mass index (BMI) that we have on record is 40.56 kg/m2. Obstructive sleep apnea (JOSE RAFAEL) worsens with an increase in weight; reduction in weight may improve or resolve your JOSE RAFAEL. Ifyou are not already seeking treatment, there are resources available at the [facility] such as a nutrition consultation or referral to weight management programs at our [facility]. Please let us know if we can assist with a referral. - Continue CPAP at 5-15 cmH2O. - Remember to clean your mask and equipment regularly, as directed. - You should be eligible for new supplies approximately every 3-6 months, depending on your insurance coverage. Contact your [employer] ([employer] company for new supplies. -Your insurance requires [...] the central scheduling system for the [facility] at [phone]. MyChart now offers direct scheduling for patients to schedule appointments. Virtual visits are also available. If not covered by your insurance, there is a 35% discount. Please contact your insurance to determine coverage. Call the office at [phone], option #5 for questions. documented in this encounterDayton Osteopathic Hospital03-06-2023 History of Present illness Narrative* Lexus Heck APRN.CNP - 07/27/2022 10:30 AM EST Images from the original note were not included. [facility] Virtual Visit Follow [...] will have a prescription sent to a [employer] company - [employer] who will be calling you in the next 1-2 weeks or so. Please call them directly or us if you do not hear from them in this time frame. - Will request formal mask fitting - You should be eligible for new supplies approximately every 3-6 months, depending on your insurance coverage. - If your mask doesn't fit well, call the [employer] company before 30 days are up to [...] now to ensure the besttime for you. [facility] on 04/13/22 CONSULT TO SLEEP MEDICINE - ADULT CPAP/BIPAP/OTHER PAP THERAPY ORDER Lawanda Miranda MD Interval history : Here for follow up for sleep apnea management. SLEEP APNEA Sleep apnea type : JOSE RAFAEL Most Recent Apnea-Hypopnea Index (AHI): 5.3 Treatment : PAP therapy DME: Josh Reese DME fax: [phone] DME ph: [phone] PAP History: Current PAP settin-15 cm H2O. [...] or near accidents due to drowsy drivin [place] Sleepiness Scale 04/12/2022 07/23/2022 Score 4 (No [...] medications, tests, or procedures. documented in this encounterDayton Osteopathic Hospital03-03-2023 Miscellaneous Notes* Telephone Encounter - Kyara [...] complete patient specific tasks. documented in this [facility]03-01-2023 Miscellaneous Notes* Telephone Encounter - Gem Mercedes RN - 07/22/2022 2:37 PM EST [facility] message sent documented in this encounterDayton Osteopathic Hospital12-28-2022 History of Present illness Narrative* Kenzie Shannon - 05/20/2022 2:28 PM EST Patient Identification confirmed: yes. Injection given and documented on JUL per provider order. Kenzie Shannon documented in this encounterDayton Osteopathic Hospital12-28-2022 Miscellaneous Notes* Addendum Note - Vera Najera MD - 05/20/2022 2:27 PM ESTAddended by: VERA NAJERA on: 05/20/2022 02:27 PM Modules accepted: Orders documented in this [facility]12-28-2022 Instructions* Patient Instructions* Vera Najera MD - 05/20/2022 2:23 PM EST B12 Shot Today and every 4 weeks Get fit for CPAP mask and setting this 05/28/2021 Continue Folic acid. RTC in 8 Weeks - labs 1 week before. documented in this encounterDayton Osteopathic Hospital12-28-2022 History of Present illness Narrative* Vera Najera MD - 05/20/2022 1:30 PM EST Images from the original note were not included. NAME: Tera Ariadna [facility] NO.: [id number] DATE OF SERVICE: May 20, 2022 ([facility]quis) [...] which included preparing to see the patient, vmtc-ud-swwm patient care, completing clinical documentation, performing a medically appropriate examination, counseling and educating the patient/family/caregiver, ordering medications, tests, or p rocedures, and independently interpreting results (not separately reported). Vera Najera MD, CPE Hematology and Oncology Services Provided at: [place], [place] CC: Vera Najera [address] [place] [address] [facility] [id number] Manuel Ferris MD, MD [address] [facility] [address] CC: Manuel Ferris MD [address] [facility] [address] documented in this encounterDayton Osteopathic Hospital12-13-2022 Miscellaneous Notes* Telephone Encounter - Gem Mercedes RN - 05/05/2022 2:39 PM EST Faxed order, office notes, demographics, and sleep study to: DME name: Josh Reese YUNIOR fax: [phone] DME ph: [phone] Confirmation received. documented in this encounterDayton Osteopathic Hospital12-13-2022 Miscellaneous Notes* Telephone Encounter - Gem Mercedes RN - 05/05/2022 12:00 PM EST [employer] message sent documented in this encounterDayton Osteopathic Hospital12-13-2022 Miscellaneous Notes* Telephone Encounter - ANALILIA Monterroso - 05/05/2022 11:36 AM EST [facility] received your PAP order. Due to a major Dctio recall and manufacturing shortage, we are unable to fulfill the request to provide your patient with a CPAP/BIPAP machine at this time. We will keep the request on file and provide when inventory is available or you can forward the order to another DME provider such as [employer], [email or web address] or [employer]. Caring for our patients is our top priority and we apologize for this delay. Thank you for your patience during this time. [phone] #1 documented in this encounterDayton Osteopathic Hospital12-02-2022 Miscellaneous Notes* Telephone Encounter - Ny Beebe MD - 04/24/2022 2:54 PM EST After [...] doctor has noted concern for EDS. Her residential advisor has told her that she has Lupus. Based on her history, I noted we can offer in-person evaluations for herself and/or her son to see if any genetic testing may be useful. I validated and provided support on the difficulty with her ambulation and transport concerns. [facility]. I offered social work and/or transport assistance for the visit. She declined this and will discuss with her regarding the transport. She verbalized understanding the reasons for in-person evaluation recommended. She has the [facility] line and will call to reschedule for an in-person evaluation at [facility]. Ny Beebe MD Core Drilling Supervisor, Associate Staff [facility] documented in this encounterDayton Osteopathic Hospital11-30-2022 Miscellaneous Notes* Telephone Encounter - Eliza [...] copy of the report. Confirmed patient's email [email or web address] Eliza Licea Genetic Counselor Pattern Ruler documented in this encounterDayton Osteopathic Hospital11-08-2022 Miscellaneous Notes* Telephone Encounter - Renate Lawrence MA - 03/31/2022 2:34 PM EST [facility] pharmacy electronically requests the following refill(s) Requested Prescriptions Pending Prescriptions Disp Refills DULoxetine (CYMBALTA) 20 mg capsule [Pharmacy Med Name: DULOXETINE HCL DR 20 MG CAP] 30 capsule 2 Sig: TAKE 1 CAPSULE BY MOUTH ONCE DAILY Renate Lawrence MA documented in this encounterDayton Osteopathic Hospital11-07-2022 Miscellaneous Notes* Telephone Encounter - Maria Eugenia Sheehan LPN - 03/30/2022 11:53 AM EST [facility] and sent [facility] regarding Dr. Nelson's directive. * Telephone Encounter [...] Thanks. Misty Nelson MD documented in this encounterDayton Osteopathic Hospital11-07-2022 Miscellaneous Notes* Telephone Encounter - Maria Eugenia Sheehan LPN - 03/30/2022 11:49 AM EST LVM and sent MyChart regarding Dr. Nelson's directive. documented in this [facility]10-26-2022 Instructions* Patient Instructions* Vera Najera MD - 03/18/2022 11:16 AM EDT Referral for sleep study pending Start on Folic acid. RTC in 8 Weeks - labs 1 week before. documented in this encounterDayton Osteopathic Hospital10-26-2022 History of Present illness Narrative* Vera Najera MD - 03/18/2022 10:45 AM EDT Images from the original note were not included. NAME: Jose Carlosfrancisco javierAriadna [facility]IN[facility] NO.: [id number] DATE OF SERVICE: March 18, 2022 (Marquis) Some elements in this clinic note that are critical to medical decision making have been carefully reviewed and included from a prior clinic note dated: March 04, 2022 (Marquis) Referring Provider: Manuel Ferris Additional Clinicians involved in Ariadnasusan Haley's care: DIAGNOSIS: Multiple symptoms ASSESSMENT: 41 [...] which included preparing to see the patient, xixg-wn-mlcf patient care, completing clinical documentation, performing a medically appropriate examination, counseling and educating the patient/family/caregiver, ordering medications, tests, or p rocedures, and independently interpreting results (not separately reported). Vera Najera MD, CPE Hematology and Oncology Services Provided at: [place], [place] CC: Manuel Ferris MD [address] [facility] [address] documented in this encounterDayton Osteopathic Hospital10-18-2022 History of Present illness Narrative* Misty Nelson MD - 03/10/2022 2:14 PM EDT VIRTUAL VISIT PROGRESS NOTE This is a virtual visit using [employer] video visit. It required patient-provider interaction for [...] the HR increases again She sees a trip follower in [place] PCP is running the Holter and echo [...] but was not pursued yet Lives in [place] She did have LN biopsy in the [...] visit. Misty Nelson MD documented in this encounterDayton Osteopathic Hospital10-17-2022 History of Past illness Narrative* Problem Noted Date Diagnosed Date Resolved Date Obesity, Class II, BMI 35-39.9 03/09/2022 03/10/2023 Obesity (BMI 30-39.9) 05/31/20142016 documented as of this encounter (statuses as of 03/10/2023) [facility]10-17-[facility] History of Past illness Narrative* Problem Noted Date Diagnosed Date Resolved Date Obesity, Class II, BMI 35-39.9 03/09/2022 03/10/2023 Obesity (BMI 30-39.9) 05/31/20142016 documented as of this encounter (statuses as of 03/11/2023) [address]17-2022 History of Past illness Narrative* Problem Noted Date Diagnosed Date Resolved Date Obesity, Class II, BMI 35-39.9 03/09/2022 03/10/2023 Obesity (BMI 30-39.9) 05/31/20142016 documented as of this encounter (statuses as of 03/19/2023) [address]17-2022 History of Past illness Narrative* Problem Noted Date Diagnosed Date Resolved Date Obesity, Class II, BMI 35-39.9 03/09/2022 03/10/2023 Obesity (BMI 30-39.9) 05/31/20142016 documented as of this encounter (statuses as of 03/24/2023) [address]17-2022 History of Past illness Narrative* Problem Noted Date Diagnosed Date Resolved Date Obesity, Class II, BMI 35-39.9 03/09/2022 03/10/2023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 B12 deficiency anemia Elevated sed rate Elevated sedimentation rate [facility] Diagnosis Other systemic lupus erythematosus with other organ involvement (HCC) 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 goods drier 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-term (current) use of other medications [facility] Diagnosis 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 Other vitamin B12 deficiency anemia Chronic fatigue and malaise Chronic fatigue syndrome [facility] Diagnosis High total serum IgM- Primary Low serum IgG for age Current smoker Tobacco use disorder [facility] Diagnosis Obesity, Class II, BMI 35-39.9 Obesity, unspecified Prediabetes Other abnormal glucose [facility] Diagnosis Megaloblastic anemia due to vitamin B12 deficiency- Primary Other vitamin B12 deficiency anemia Elevated sed rate Elevated sedimentation rate [facility] Diagnosis Other systemic lupus erythematosus with other organ involvement (HCC)- Primary Vitamin D deficiency Unspecified vitamin D deficiency Elevated LFTs Other abnormal blood chemistry Anemia of chronic disease Anemia of other chronic disease Elevated sed rate Elevated sedimentation rate Elevated C-reactive protein (CRP) [facility] Diagnosis Other systemic lupus [...] disease without gangrene [facility] Diagnosis Systemic lupus erythematosus with other organ involvement (HCC)- Primary [facility] Diagnosis Megaloblastic anemia due to vitamin B12 deficiency- Primary Other vitamin B12 deficiency anemia High total serum IgM Elevated sed rate Elevated sedimentation rate [facility] Diagnosis Other systemic lupus erythematosus with other organ involvement (HCC)- Primary [facility] Diagnosis Other systemic lupus erythematosus with other organ involvement (HCC) 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 goods drier 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-term (current) use of other medications [facility] Diagnosis Megaloblastic anemia due to vitamin B12 deficiency- Primary Other vitamin B12 deficiency anemia Elevated sed rate Elevated sedimentation rate [facility] Diagnosis Megaloblastic anemia due to vitamin B12 deficiency- Primary Other vitamin B12 deficiency anemia Elevated sed rate Elevated sedimentation rate Chronic fatigue and malaise Chronic fatigue syndrome High total serum IgM JOSE RAFAEL (obstructive sleep apnea) Obstructive sleep apnea (adult) (pediatric) [facility] Diagnosis Insulin resistance, unspecified- Primary Depression, recurrent (HCC) Major depressive disorder, recurrent episode, unspecified Chronic pain syndrome [facility] Diagnosis Systemic lupus erythematosus, unspecified SLE type, unspecified organ involvement status (HCC)- Primary [facility] Diagnosis Megaloblastic anemia due to vitamin B12 deficiency- Primary Other vitamin B12 deficiency anemia Elevated sed rate Elevated sedimentation rate [facility] Diagnosis Megaloblastic anemia due to vitamin B12 deficiency- Primary Other vitamin B12 deficiency anemia Elevated sed rate Elevated sedimentation rate [facility] Diagnosis Obesity, Class III, BMI >= 40- Primary Morbid obesity FUO (fever of unknown origin) Fever, unspecified Other chronic pain [facility] Diagnosis Obesity, Class III, BMI >= 40 Morbid obesity [facility] Diagnosis Obesity, Class III, BMI >= 40- Primary Morbid obesity Other chronic pain documented in this encounter [facility] note* Diagnosis Irregular heart rate- Primary Essential hypertension Unspecified essential hypertension Autonomic dysfunction Obstructive sleep apnea syndrome Obstructive sleep apnea (adult) (pediatric) Primary hypertension Unspecified essential hypertension documented in this encounter [facility] Work Phone: Evaluation note* Diagnosis Autoimmune disease (CMS/HCC)- Primary Autoimmune disease, not elsewhere classified Autonomic dysfunction Lumbosacral radiculopathy Thoracic or lumbosacral neuritis or radiculitis, unspecified Bilateral leg weakness Muscle weakness (generalized) [facility] Diagnosis Shortness of breath- Primary Paroxysmal supraventricular tachycardia PAC (premature atrial contraction) Supraventricular premature beats Current smoker Systemic lupus erythematosus, unspecified SLE type, unspecified organ involvement status (CMS/HCC) Palpitations Obstructive sleep apnea syndrome Obstructive sleep apnea (adult) (pediatric) Morbid obesity (CMS/HCC) Morbid obesity Bilateral lower extremity edema documented in this encounter [facility] Work Phone: Evaluation note* Diagnosis Megaloblastic anemia due to vitamin B12 deficiency- Primary Other vitamin B12 deficiency anemia Elevated sed rate Elevated sedimentation rate documented in this encounter [facility] note* Diagnosis Systemic lupus erythematosus with other organ involvement (HCC)- [facility] Diagnosis Systemic lupus erythematosus with other organ involvement (HCC)- Primary [facility] Diagnosis Megaloblastic anemia due to vitamin B12 deficiency- Primary Other vitamin B12 deficiency anemia Elevated sed rate Elevated sedimentation rate [facility] Diagnosis Other systemic lupus erythematosus with other organ involvement (HCC)- Primary Vitamin D deficiency Unspecified vitamin D deficiency Elevated LFTs Other abnormal blood chemistry Anemia of chronic disease Anemia of other chronic disease Elevated sed rate Elevated sedimentation rate Elevated C-reactive protein (CRP) [facility] Diagnosis Megaloblastic anemia due [...] other medications Long-term use of high-risk medication shelter 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 Encounter [...] with other organ involvement (HCC) Encounter for skilled nursing 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-term [...] [facility] Elevated LFTs- Primary Other abnormal blood chemistry Elevated C-reactive protein (CRP) Elevated sed rate Elevated sedimentation rate Vitamin D deficiency Unspecified vitamin D deficiency Screening-pulmonary TB Screening examination for pulmonary tuberculosis [facility] Diagnosis Other systemic lupus erythematosus with other organ involvement (HCC) [facility] Diagnosis Systemic lupus erythematosus with other organ involvement (HCC)- Primary [facility] Diagnosis Elevated sed rate- Primary Elevated sedimentation rate Megaloblastic anemia due to vitamin B12 deficiency Other vitamin B12 deficiency anemia [facility] Diagnosis Pseudomonas infection- Primary Pseudomonas infection in conditions classified elsewhere and of unspecified site Other systemic lupus erythematosus with other organ involvement (HCC) On prednisone therapy Long-term use of Plaquenil 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-term (current) use of other medications [facility] Diagnosis Onset Date Resolution Status Lupus acute Recurrent Clostridioides difficile diarrhea acute Nipple discharge in female a cute Recurrent Clostridioides difficile diarrhea acute Lumbosacral spondylosis acut e Other chronic pain acute Sacroiliitis [facility] Work Phone: Evaluation note* Diagnosis JOSE RAFAEL (obstructive sleep apnea)- Primary Obstructive sleep apnea (adult) (pediatric) Somnolence, daytime Hypersomnia, unspecified [facility] Diagnosis Systemic lupus erythematosus with other organ involvement (HCC)- Primary [facility] Diagnosis Systemic lupus erythematosus with other organ involvement (HCC)- Primary [facility] Diagnosis Onset Date Resolution Status Nipple discharge in female a cute Recurrent Clostridioides difficile diarrhea acute Lumbosacral spondylosis acut e Other chronic pain acute Sacroiliitis [facility] Work Phone: Evaluation note* Diagnosis Elevated sed rate- Primary Elevated sedimentation rate Megaloblastic anemia due to vitamin B12 deficiency Other vitamin B12 deficiency anemia [facility] Diagnosis Onset Date Resolution Status Nipple discharge in female a cute Recurrent Clostridioides difficile diarrhea acute Lumbosacral spondylosis acut e Other chronic pain acute Sacroiliitis acute Lumbosacral spondylosis acut e Other chronic pain acute Sacroiliitis acute [facility] Work Phone: Evaluation note* Diagnosis Lumbosacral radiculopathy at L5 Degenerative disc disease, lumbar Cervical radiculopathy at C5 documented in this encounter [facility]* Diagnosis Onset Date Resolution Status Lumbosacral spondylosis acut e Other chronic pain acute Sacroiliitis acute Lumbosacral spondylosis acut e Other chronic pain acute Sacroiliitis acute [facility] Work Phone: Evaluation note* Diagnosis Other systemic lupus erythematosus with other organ involvement (HCC) [facility] Diagnosis Other systemic lupus erythematosus [...] both feet Long-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 high-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-term (current) use of steroids Bilateral hand pain Pain in limb Systemic lupus erythematosus, unspecified SLE type, unspecified organ involvement status (HCC) Vitamin B12 deficiency Other B-complex deficiencies Discoid lupus erythematosus Lupus erythematosus [facility] Diagnosis Nipple discharge Other sign and symptom in breast documented in this encounter [facility]* Diagnosis Elevated sed rate- Primary Elevated sedimentation rate Megaloblastic anemia due to vitamin B12 deficiency Other vitamin B12 deficiency anemia [facility] Diagnosis Abnormal uterine bleeding (AUB) Menorrhagia with regular cycle documented in this encounter [facility]* Diagnosis Megaloblastic anemia due to vitamin B12 deficiency- Primary Other vitamin B12 deficiency anemia High total serum IgM JOSE RAFAEL (obstructive sleep apnea) Obstructive sleep apnea (adult) (pediatric) Elevated sed rate Elevated sedimentation rate Hypogammaglobulinemia (HCC) Hypogammaglobulinaemia, unspecified Frequent infections [facility] Diagnosis Oral thrush- Primary Candidiasis of mouth documented in this encounter [facility]* Diagnosis Oral thrush- Primary Candidiasis of mouth documented in this encounter [facility]* Diagnosis Systemic lupus erythematosus with other organ involvement (HCC)- Primary [facility] Diagnosis LPRD (laryngopharyngeal reflux disease)- Primary Acute laryngitis, without mention of obstruction Acute otalgia, right documented in this encounter [facility]* Diagnosis Autoimmune disease ([facility]) Autoimmune disease, not elsewhere classified Fibromyalgia Unspecified myalgia and myositis Numbness Disturbance of skin sensation documented in this encounter [facility]* Diagnosis Lumbosacral radiculopathy at L5- Primary Degenerative disc disease, lumbar Cervical radiculopathy at C5 [facility] Degenerative disc disease, lumbar- Primary Lumbosacral radiculopathy at L5 [facility] Diagnosis Frequent infections- Primary Megaloblastic anemia due to vitamin B12 deficiency Other vitamin B12 deficiency anemia Elevated sed rate Elevated sedimentation rate Hypogammaglobulinemia (HCC) Hypogammaglobulinaemia, unspecified Bilateral leg weakness Other musculoskeletal symptoms referable to limbs Discoid lupus erythematosus Lupus erythematosus [facility] Diagnosis Well woman exam with routine gynecological exam Routine gynecological examination Breast cancer screening by mammogram Breast nodule Other (abnormal) findings on radiological examination of breast [facility] Diagnosis Megaloblastic anemia due to vitamin B12 deficiency- Primary Other vitamin B12 deficiency anemia Hypogammaglobulinemia (HCC) Hypogammaglobulinaemia, unspecified Positive blood cultures Bacteremia Malaise and fatigue Other malaise and fatigue SOB (shortness of breath) Shortness of breath [facility] Diagnosis Elevated sed rate- Primary Elevated sedimentation rate Megaloblastic anemia due to vitamin B12 deficiency Other vitamin B12 deficiency anemia Hypogammaglobulinemia (HCC) Hypogammaglobulinaemia, unspecified Frequent infections Bilateral leg weakness Other musculoskeletal symptoms referable to limbs Discoid lupus erythematosus Lupus erythematosus [facility] Diagnosis Diarrhea, unspecified type- Primary Abdominal pressure Abdominal pain, unspecified site [facility] Diagnosis Other iron deficiency anemia- Primary [facility] Diagnosis Other systemic lupus erythematosus with other organ involvement (HCC) documented [facility] Diagnosis Systemic lupus erythematosus with other organ involvement (HCC)- Primary [facility]* Diagnosis Systemic lupus erythematosus (CMS-HCC)- Primary Cold extremities Pain of lower extremity, unspecified laterality Rheumatoid arthritis, involving unspecified site, unspecified whether rheumatoid factor present ([facility]) Current smoker 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 [facility] Diagnosis Systemic lupus erythematosus (CMS-HCC)- Primary Cold extremities Pain of lower extremity, unspecified laterality Rheumatoid arthritis, involving unspecified site, unspecified whether rheumatoid factor present (CMS-HCC) Current smoker 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 Peripheral vascular disease, unspecified (CMS-HCC)- Primary Peripheral vascular disease, unspecified Cold extremities Systemic lupus erythematosus (CMS-HCC) [facility] Diagnosis Other systemic lupus erythematosus with other organ involvement (HCC)- Primary Vitamin D deficiency Unspecified vitamin D deficiency Elevated LFTs Other abnormal blood chemistry Anemia of chronic disease Anemia of other chronic disease Elevated sed rate Elevated sedimentation rate Elevated C-reactive protein (CRP) documented in this encounter [facility] note* Diagnosis Onset Date Resolution Status Admit Date Lumbosacral spondylosis acute F ebruary 2024 3:16pm Other chronic pain acute Februa ry 2024 3:16pm Sacroiliitis acute June 3:16pm [facility] Work Phone: Evaluation note* Diagnosis Elevated sed rate- Primary Elevated sedimentation rate Megaloblastic anemia due to vitamin B12 deficiency Other vitamin B12 deficiency anemia Frequent infections Hypogammaglobulinemia (HCC) Hypogammaglobulinaemia, unspecified Bilateral leg weakness Other musculoskeletal symptoms referable to limbs Discoid lupus erythematosus Lupus erythematosus documented in this encounter [facility] note* Diagnosis LPRD (laryngopharyngeal reflux disease) Other diseases of larynx Dry mouth Disturbance of salivary secretion Current smoker Tobacco use disorder Abnormal mouth sensation Other and unspecified diseases of the oral soft tissues documented in this encounter [facility] note* Diagnosis Nipple discharge- Primary Other sign and symptom in breast Other systemic lupus erythematosus with other organ involvement (HCC) On prednisone therapy Long-term use of Plaquenil 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-term (current) use of other medications [facility] Diagnosis Hidradenitis suppurativa- Primary Hidradenitis Other seborrheic dermatitis Lupus erythematosus tumidus (CMS/HCC) Rash and other nonspecific skin eruption Capillary angioma Nevus, non-neoplastic Neoplasm of uncertain behavior of skin documented in this encounter [facility] note* Diagnosis Sinus tachycardia- Primary Other specified cardiac dysrhythmias Shortness of breath Paroxysmal supraventricular tachycardia (CMS-HCC) Paroxysmal supraventricular tachycardia Essential hypertension Unspecified essential hypertension Obstructive sleep apnea syndrome Obstructive sleep apnea (adult) (pediatric) Morbid obesity (Multi) Morbid obesity Current smoker documented in this encounter [facility] Work Phone: Evaluation note* Diagnosis Elevated sed rate- Primary Elevated sedimentation rate Megaloblastic anemia due to vitamin B12 deficiency Other vitamin B12 deficiency anemia Frequent infections Hypogammaglobulinemia (HCC) Hypogammaglobulinaemia, unspecified Bilateral leg weakness Other musculoskeletal symptoms referable to limbs Discoid lupus erythematosus Lupus erythematosus [facility] Diagnosis Systemic lupus erythematosus with other organ involvement (HCC)- Primary [facility] Diagnosis Vitamin B12 deficiency- Primary Other B-complex deficiencies Other iron deficiency anemia Hypogammaglobulinemia (HCC) Hypogammaglobulinaemia, unspecified [facility]* Diagnosis Other systemic lupus erythematosus with other organ involvement (HCC) [facility] Diagnosis Thyroid nodule (CMS/HCC)- Primary Nontoxic uninodular goiter LPRD (laryngopharyngeal reflux disease) Acute laryngitis, without mention of obstruction [facility] Diagnosis Hypogammaglobulinemia (HCC)- Primary Hypogammaglobulinaemia, unspecified Vitamin B12 deficiency Other B-complex deficiencies Other iron deficiency anemia Megaloblastic anemia due to vitamin B12 deficiency Other vitamin B12 deficiency anemia [facility] Diagnosis Frequent infections- Primary Hypogammaglobulinemia (HCC) Hypogammaglobulinaemia, unspecified Bilateral leg weakness Other musculoskeletal symptoms referable to limbs Discoid lupus erythematosus Lupus erythematosus Elevated sed rate Elevated sedimentation rate Megaloblastic anemia due to vitamin B12 deficiency Other vitamin B12 deficiency anemia [facility] Diagnosis Other systemic lupus erythematosus with other organ involvement (HCC)- Primary [facility] Diagnosis Other systemic lupus erythematosus with other organ involvement (HCC) [facility] Diagnosis Systemic lupus erythematosus with other organ involvement (HCC)- Primary [facility] Diagnosis Fibromyalgia- Primary Mylagia and myositis, unspecified Family history of disease of aorta Family history of cancer Family history of unspecified malignant neoplasm [facility] Diagnosis Frequent infections- Primary Hypogammaglobulinemia (HCC) [...] vitamin D deficiency [facility] Diagnosis Other systemic lupus erythematosus with other organ involvement (HCC)- Primary [facility] Diagnosis Other systemic lupus erythematosus with other organ involvement (HCC)- Primary Elevated LFTs Other abnormal blood chemistry Anemia of chronic disease Anemia of other chronic disease Elevated sed rate Elevated sedimentation rate Elevated C-reactive protein (CRP) Vitamin B12 deficiency Other B-complex deficiencies Screening-pulmonary TB Screening examination for pulmonary tuberculosis Vitamin D deficiency Unspecified vitamin D deficiency [facility] Diagnosis Other systemic lupus [...] both feet Long-term use of high-risk medication shelter 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-term (current) use of steroids Bilateral hand pain Pain in limb Family history of Crohn's disease Family history of other digestive disorders 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 Bilateral wrist pain 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, forearm [facility] Diagnosis Other systemic lupus erythematosus with other organ involvement (HCC)- Primary [facility] Diagnosis Generalized articular hypermobility- Primary Other joint derangement, not elsewhere classified, multiple sites Chronic pain syndrome Discoid lupus erythematosus Lupus erythematosus Family history of pneumothorax in son Family history of other condition Family history of cancer Family history of unspecified malignant neoplasm Family history of mild aortic dilation in daughter Family history of other cardiovascular diseases [facility] Diagnosis Elevated sed rate- Primary Elevated sedimentation rate Megaloblastic anemia due to vitamin B12 deficiency Other vitamin B12 deficiency anemia Frequent infections Hypogammaglobulinemia (HCC) Hypogammaglobulinaemia, unspecified Bilateral leg weakness Other musculoskeletal symptoms referable to limbs Discoid lupus erythematosus Lupus erythematosus [facility] Diagnosis Other systemic lupus erythematosus with other organ involvement (HCC)- Primary [facility]* Diagnosis Hypogammaglobulinemia (HCC)- Primary Hypogammaglobulinaemia, unspecified [facility]* Diagnosis Hidradenitis suppurativa- Primary Hidradenitis Pain Generalized pain Acne vulgaris Other acne [facility] Diagnosis Hypogammaglobulinemia (HCC)- Primary Hypogammaglobulinaemia, unspecified Vitamin B12 deficiency Other B-complex deficiencies Other iron deficiency anemia Malaise and fatigue Other malaise and fatigue Shortness of breath Other specified disorders of breast Pre-diabetes Other abnormal glucose Gastro-esophageal reflux disease without esophagitis Esophageal reflux [facility] Diagnosis Elevated sed rate- Primary Elevated sedimentation rate Megaloblastic anemia due to vitamin B12 deficiency Other vitamin B12 deficiency anemia Frequent infections Hypogammaglobulinemia (HCC) Hypogammaglobulinaemia, unspecified Bilateral leg weakness Other musculoskeletal symptoms referable to limbs Discoid lupus erythematosus Lupus erythematosus [facility] Diagnosis Other systemic lupus erythematosus with other organ involvement (HCC)- Primary [facility]* Diagnosis Other systemic lupus erythematosus with other organ involvement (HCC)- Primary Elevated LFTs Other abnormal blood chemistry Anemia of chronic disease Anemia of other chronic disease Elevated sed rate Elevated sedimentation rate Elevated C-reactive protein (CRP) Vitamin D deficiency Unspecified vitamin D deficiency Vitamin B12 deficiency Other B-complex deficiencies Screening-pulmonary TB Screening examination for pulmonary tuberculosis [facility] Diagnosis Other systemic lupus erythematosus with other organ involvement (HCC)- Primary Elevated LFTs Other abnormal blood chemistry Anemia of chronic disease Anemia of other chronic disease Elevated C-reactive protein (CRP) Elevated sed rate Elevated sedimentation rate Vitamin D deficiency Unspecified vitamin D deficiency [facility] Diagnosis Frequent infections- Primary Hypogammaglobulinemia (HCC) Hypogammaglobulinaemia, unspecified Bilateral leg weakness Other musculoskeletal symptoms referable to limbs Discoid lupus erythematosus Lupus erythematosus Elevated sed rate Elevated sedimentation rate Megaloblastic anemia due to vitamin B12 deficiency Other vitamin B12 deficiency anemia [facility]* Diagnosis Pilonidal cyst- Primary Hidradenitis suppurativa Hidradenitis documented [facility]ative - Reported* Type Description Date Medical History hyperlipidemia Medical History insulin resistance Medical History CMV Surgical History cyst removal pilonidal Surgical History D&C Hospitalization History [facility] Other Hospital Discharge instructionsAmbulatory Orders* Referral to Gastroenterology Location: [facility] Work Phone: InstructionsNot on filedocumented in this encounter [facility] Diagnostic Procedure Only (Routine) - Pending Review Specialty Diagnoses / Procedures Referred By Nahid tran Referred To Contact XR IMAGING Diagnoses Steroid-induced osteoporosis Procedures DXA-FOREARM SKELETON DXA BONE DENSITY STUDY 1/>SITES APPENDICLR Lynne Perera MD [address] [facility] [place] [address] [place] [id number] Referral ID Status Reason Start Date Expiration Date Visits Requested Visits Authorized [id number] Pending Review Auto-Generat ed Referral 02/04/2023 03/05/2024 1 1 [facility] for referral (narrative)* Consultation (Routine) - Authorized Specialty Diagnoses / Procedures Referred By Contac t Referred To Contact Cardiology Diagnoses Irregular heart rate Essential hypertension Autonomic dysfunction Obstructive sleep apnea syndrome Primary hypertension Procedures Follow Up In Cardiology Michelle Jasmine APRN-CNP [address] [facility] [address] [place] [address] Aurora Patel MD [address] [address] Referral ID Status Reason Start Date Expiration Date V isits Requested Visits Authorized [id number] Authorized 06/09/2023 06/08/2024 1 1 * Cardiovascular (Routine) - Pending Review Specialty Diagnoses / Procedures Referred By Contac t Referred To Contact Cardiology Diagnoses Irregular heart rate Procedures Holter Or Event Help Aid Michelle Jasmine APRN-[facility] [address] [facility] [address] [place] [address] Referral ID Status Reason Start Date Expiration Date V isits Requested Visits Authorized Pending Review 06/09/2023 06/08/2024 1 1 * CV Imaging (Routine) - Pending Review Specialty Diagnoses / Procedures [facility] Referred To Contact Cardiology Diagnoses Irregular heart rate Obstructive sleep apnea syndrome Procedures Transthoracic Echo (TTE) Complete UT ECHO TTHRC R-T 2D W/WOM-MODE COMPL SPEC&COLR D Michelle Jasmine APRN-[facility] [address] [facility] [address] [place] [address] Referral ID Status Reason Start Date Expiration Date Visits Requested Visits Authorized Pending Review Perform Procedure 06/09/2023 06/08/2024 1 1 * Cardiovascular (Routine) - Authorized Specialty Diagnoses / Procedures [facility] Referred To Contact Diagnoses Irregular heart rate Procedures ECG 12 Lead [facility] [address] [facility] [address] [place] [address] Referral ID Status Reason Start Date Expiration Date V isits Requested Visits Authorized [id number] Authorized 06/09/2023 06/08/2024 1 1 [facility] Work Phone: Reason for referral (narrative)* Consultation (Routine) - Pending Review Specialty Diagnoses / Procedures Referred By Contac t Referred To Contact Pain Medicine Diagnoses Lumbosacral radiculopathy at L5 Degenerative disc disease, lumbar Procedures UT OFFICE/OUTPATIENT [facility] 60 MINUTES Kade Richardson MD [address] [facility] [address] [place] [id number] Adolfo Kang MD [address] [address] Referral ID Status Reason Start Date Expiration Date Visits Requested Visits Authorized [id number] Pending Review Specialty Services Required 01/20/2024 07/18/2024 1 1 [facility]ative)No reason for referral information [facility] Work Phone: Reason for visit Narrative* [place] Prior Authorization (Routine) - Authorized Specialty Diagnoses / Procedures Referred By Contac t Referred To Contact Diagnoses Frequent infections Hypogammaglobulinemia (HCC) Bilateral leg weakness Discoid lupus erythematosus Procedures GAMMAGARD LIQUID INJECTION Vera Najera MD [address] [facility] [address] Phone: tel: fax: Hematology/Oncology [address] [place] [address] Phone: tel: fax: Referral ID Status Reason Start Date Expiration Date V isits Requested Visits Authorized [id number] Authorized 04/03/2024 10/01/2024 7 7 [facility] for visit Narrative* [place] Prior Authorization (Routine) - Authorized Specialty Diagnoses / Procedures Referred By Contac t Referred To Contact Diagnoses Other systemic lupus erythematosus with other organ involvement (HCC) Procedures BELIMUMAB INJECTION Lynne Ni MD [address] [place] [address] Phone: tel: fax: Lynne Ni MD [address] [place] [address] Phone: tel: fax: Referral ID Status Reason Start Date Expiration Date V isits Requested Visits Authorized [id number] Authorized 09/08/2024 03/10/2025 8 8 [facility] for visit Narrative* [place] Prior Authorization (Routine) - Authorized Specialty Diagnoses / Procedures Referred By Contac t Referred To Contact Diagnoses Other iron deficiency anemia Procedures IRON SUCROSE INJECTION PER 1 MG Vaibhav Carvalho APRN.ROOM SERVICE ASSOCIATE [address] [place] [address] Phone: tel: fax: Hematology/Oncology [address] [place] [address] Phone: tel: fax: Referral ID Status Reason Start Date Expiration Date V isits Requested Visits Authorized [id number] Authorized 06/16/2024 05/23/2025 99 99 [facility] for visit Narrative* [place] Prior Authorization (Routine) - Authorized Specialty Diagnoses / Procedures Referred By Contac t Referred To Contact Diagnoses Frequent infections Hypogammaglobulinemia (HCC) Bilateral leg weakness Discoid lupus erythematosus Procedures GAMMAGARD LIQUID INJECTION Vera Najera MD [address] [facility] [place] [address] Phone: tel: fax: Hematology/Oncology [address] [facility] [facility] [place] [address] Phone: tel: fax: Referral ID Status Reason Start Date Expiration Date Visits Requested Visits Authorized [id number] Authorized Patient Cleared - Admin/Chairm an/Director advise to proceed or did not respond 10/30/2024 10/30/2025 19 19 [facility] for visit Narrative* [place] Prior Authorization (Routine) - Authorized Specialty Diagnoses / Procedures Referred By Contac t Referred To Contact Diagnoses Frequent infections Hypogammaglobulinemia (HCC) Bilateral leg weakness Discoid lupus erythematosus Procedures GAMMAGARD LIQUID INJECTION Vera Najera MD [address] [facility] [facility] [place] [address] Phone: tel: fax: Hematology/Oncology [address] [facility] [place] [address] Phone: tel: fax: Referral ID Status Reason Start Date Expiration Date Visits Requested Visits Authorized [id number] Authorized Patient Cleared - Admin/Chairm an/Director advise to proceed or did not respond 10/30/2024 10/30/2025 18 18 [facility] for visit Narrative* [place] Prior Authorization (Routine) - Authorized Specialty Diagnoses / Procedures Referred By Contac t Referred To Contact Diagnoses Frequent infections Hypogammaglobulinemia (HCC) Bilateral leg weakness Discoid lupus erythematosus Procedures GAMMAGARD LIQUID INJECTION IMMUNE GLOBULIN INJECTION Vera Najera MD [address] [facility] [place] [address] Phone: tel: fax: Hematology/Oncology [address] [facility] [place] [address] Phone: tel: fax: Referral ID Status Reason Start Date Expiration Date Visits Requested Visits Authorized [id number] Authorized Patient Cleared - Admin/Chairm an/Director advise to proceed or did not respond 10/30/2024 10/30/2025 19 19 [facility] Summary Purpose Family History No Family History Records Found Relationship Condition Age at Onset Recorded Date/T michelle father Unknown Malignant neoplasm Unknown Relationship Condition Age at Onset Recorded Date/T michelle father Malignant neoplasm of stomach Unknown Unknown mother Crohn's disease Unknown Advance Directives No Advanced Directives Records FoundDocuments on File Type Date Recorded Patient [place]man Expl anation ACP-Advance Directive ACP-Power of Mold Design Engineer Latest Code Status on File Code Status Date Activated Date Inactivated Comments Full Code 10/07/2020 8:32 AM Documents on File Type Date Recorded Patient Ladderman Expl anation Advance Directive(s) 09/13/2015 8:36 AM Advance Directive Response Recorded Date/ Time Advance Directives No September 17, 2:40pm Advance Directive Response Recorded Date/ Time Advance Directives No September 17 1:40pm Reason for Referral Specialty Diagnoses / Procedures Referred By Contac t Referred To Contact Infectious Diseases Diagnoses Positive blood cultures Procedures CONSULT TO INFECTIOUS DISEASES OFFICE/OUTPATIENT [facility] 60 MINUTES Vaibhav Carvalho APRN.[address] [place] [address] Referral ID Status Reason Start Date Expiration Date Visits Requested Visits Authorized [id number] Authorized PCP Requested Referral 06/13/2024 06/13/2025 1 1 Specialty Diagnoses / Procedures Referred By Contac t Referred To Contact Diagnoses Paroxysmal supraventricular tachycardia PAC (premature atrial contraction) Procedures ECG 12 Lead Lois Holm MD [address] [place] [address] 2, [facility] [address] [place] [address] Referral ID Status Reason Start Date Expiration Date V isits Requested Visits Authorized [id number] Authorized 07/13/2023 07/12/2024 1 1 Specialty Diagnoses / Procedures Referred By Contac t Referred To Contact Cardiology Diagnoses Shortness of breath Paroxysmal supraventricular tachycardia PAC (premature atrial contraction) Procedures Follow Up In Cardiology Lois Holm MD [address] [place] [address] 2, [address] [place] [address] Lois Holm MD 7[address] [facility] 2, [address] [place] [address] Referral ID Status Reason Start Date Expiration Date V isits Requested Visits Authorized [id number] Authorized 07/13/2023 07/12/2024 1 1 Specialty Diagnoses / Procedures Referred By Contac t Referred To Contact Diagnoses Obesity, Class III, BMI 40-49.9 (morbid obesity) (HCC) Pre-diabetes Christie Phan MD [address] [place] [address] Referral ID Status Reason Start Date Expiration Date Visits Re quested Visits Authorized [id number] Closed 1 1 Specialty Diagnoses / Procedures Referred By Contac t Referred To Contact Diagnoses Wound healing, delayed Procedures CONSULT TO MEDICAL GENETICS - GENERAL OFFICE/OUTPATIENT [facility] 60-74 MINUTES MEDICAL GENETICS COUNSELING EACH 30 MINUTES Misty Nelson MD [facility]2 [place] [id number] [address] Referral ID Status Reason Start Date Expiration Date Visits Requested Visits Authorized [id number] Authorized PCP Requested Referral Auto-Generate d Referral 2 03/10/2023 1 1 Specialty Diagnoses / Procedures Referred By Contac t Referred To Contact Neurology Diagnoses POTS (postural orthostatic tachycardia syndrome) Procedures CONSULT TO NEUROLOGY OFFICE/OUTPATIENT [facility] 60-74 MINUTES Christie Phan MD [address] [place] [address] Referral ID Status Reason Start Date Expiration Date Visits Requested Visits Authorized [id number] Authorized PCP Requested Referral 2 03/12/2023 1 1 Specialty Diagnoses / Procedures Referred By Contac t Referred To Contact Immunology Diagnoses Raised level of immunoglobulins Procedures CONSULT TO IMMUNOLOGY OFFICE/OUTPATIENT [facility] 60-74 MINUTES Christie Phan MD [address] [place] [address] Referral ID Status Reason Start Date Expiration Date V isits Requested Visits Authorized [id number] Closed PCP Requested Referral 03/09/2022 03/09/2023 1 1 Specialty Diagnoses / Procedures Referred By Contac t Referred To Contact [facility] Diagnoses Somnolence, daytime Snoring Procedures HOME SLEEP APNEA TEST (HSAT) SLEEP STD AIRFLOW HRT RATE&O2 SAT EFFORT UNATT Christie Phan MD [address] [place], [place] [address] [facility] [address] [place] [address] Referral ID Status Reason Start Date Expiration Date Visits Requested Visits Authorized [id number] Authorized Auto-Generat ed Referral 2 03/09/2023 1 1 Specialty Diagnoses / Procedures Referred By Contac t Referred To Contact Diagnoses Somnolence, daytime Chronic fatigue and malaise Obesity, unspecified classification, unspecified obesity type, unspecified whether serious comorbidity present Procedures CONSULT TO LIFESTYLE MEDICINE MD OFFICE/OUTPATIENT [facility] 60-74 MINUTES Vera Najera MD [address] [place] [address] [place] [address] Referral ID Status Reason Start Date Expiration Date V isits Requested Visits Authorized [id number] Closed PCP Requested Referral 03/04/2022 03/04/2023 1 1 Specialty Diagnoses / Procedures Referred By Contac t Referred To Contact Diagnoses Somnolence, daytime Snoring Procedures CONSULT TO SLEEP MEDICINE - ADULT OFFICE/OUTPATIENT [facility] 60-74 MINUTES Vera Najera MD [address] [place] [address] [place] [address] Referral ID Status Reason Start Date Expiration Date Visits Requested Visits Authorized [id number] Authorized PCP Requested Referral 2 03/04/2023 1 [...] selene L3,4,5 lumbar facet MBB August 22 025 1:25pm Chief Complaint Admit Date f/u after selene lumbar MBB September 06 3:42pm reschedule procedure November 13, 2024 11: 15am SELENE LUMBAR FACET MBB L3,4,5 November 21 12:49pm Reason for Visit Admit Date Lumbosacral spondylosis September 06, 2024 3:42pm Other chronic pain September 06, 2024 3:4 2pm Sacroiliitis September 06, 2024 3:4 2pm Lumbosacral spondylosis November 13, 2024 11:15am Other chronic pain November 13, 2024 11:1 5am Sacroiliitis November 13, 2024 11:1 5am Chief Complaint Admit Date f/u after selene lumbar MBB September 06 3:42pm reschedule procedure November 13, 2024 11: 15am SELENE LUMBAR FACET MBB L3,4,5 November 21 12:49pm FOLLOW UP AFTER SELENE LUMBAR MBB November 9:03am Reason for Visit Admit Date Lumbosacral spondylosis September 06, 2024 3:42pm Other chronic pain September 06, 2024 3:4 2pm Sacroiliitis September 06, 2024 3:4 2pm Lumbosacral spondylosis November 13, 2024 11:15am Other chronic pain November 13, 2024 11:1 5am Sacroiliitis November 13, 2024 11:1 5am Lumbosacral spondylosis November 30, 2024 9:03am Other chronic pain November 30, 2024 9:03 am Sacroiliitis November 30, 2024 9:03 am Chief Complaint Admit Date SELENE LUMBAR FACET MBB L3,4,5 November 21 12:49pm BH November 22, 2024 2:38p m FOLLOW UP AFTER SELENE LUMBAR MBB November 9:03am nausea/Burning under left [...] 2025 9:23am Sacroiliitis February 14, 2025 9:23am Additional Source Comments INFORMATION SOURCE (unrecogn ized section and content) DATE CREATED AUTHOR 09/20/2018 [facility] DATE CREATED AUTHOR AUTHOR'S ORGANIZ ATION 12/10/2018 [facility] DATE CREATED AUTHOR AUTHOR'S ORGANIZ ATION 01/13/2019 [facility] DATE CREATED AUTHOR AUTHOR'S ORGANIZ ATION 06/28/2021 [facility] DATE CREATED AUTHOR AUTHOR'S ORGANIZ ATION 10/01/2022 [facility] DATE CREATED AUTHOR AUTHOR'S ORGANIZ ATION 03/10/2024 [facility] DATE CREATED AUTHOR AUTHOR'S ORGANIZ ATION 07/22/2024 [facility] DATE CREATED AUTHOR AUTHOR'S ORGANIZ ATION 07/28/2024 [facility] DATE CREATED AUTHOR AUTHOR'S ORGANIZ ATION 02/07/2025 [facility] DATE CREATED AUTHOR AUTHOR'S ORGANIZ ATION 02/12/2025 [facility] DATE CREATED AUTHOR AUTHOR'S ORGANIZ ATION 02/16/2025 [facility] Reason for Visit (unrecogniz ed section and content) Reason Comments Infection Follow Up Specialty Diagnoses / Procedures Referred By Contac t Referred To Contact Infectious Diseases Diagnoses Positive blood cultures Procedures CONSULT TO INFECTIOUS DISEASES OFFICE/OUTPATIENT NEW HIGH MDM 60 MINUTES Vaibhav Carvalho APRN.ROOM SERVICE ASSOCIATE [address] [facility] [facility] [place] [address] Phone: tel: fax: Referral ID Status Reason Start Date Expiration Date V isits Requested Visits Authorized [id number] Closed PCP Requested Referral 06/13/2024 06/13/2025 1 1 Status Reason Specialty Diagnoses / Procedures Referre d By Contact Referred To Contact [employer] Reason Comments Pain ongoing generalized pain. Reason [...] MDM 60-74 MINUTES Vera Najera MD [address] [facility] [place] [address] Referral ID Status Reason Start Date Expiration Date V isits Requested Visits Authorized [id number] Closed PCP Requested Referral 03/04/2022 03/04/2023 1 1 Reason Comments High Total serum IgM Anemia Reason Comments Consult Specialty Diagnoses / Procedures Referred By Contac t Referred To Contact Immunology Diagnoses Raised level of immunoglobulins Procedures CONSULT TO IMMUNOLOGY OFFICE/OUTPATIENT NEW HIGH MDM 60-74 MINUTES Christie Phan MD [address] [place] [address] Referral ID Status Reason Start Date Expiration Date V isits Requested Visits Authorized [id number] Closed PCP Requested Referral 03/09/2022 03/09/2023 1 1 Reason Comments Pneumovax Reason Comments Refill Request Reason Comments 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 Reason Comments Future Appointment Scheduling [...] rate Procedures ECG 12 Lead Michelle Jasmine, [employer] DEVELOPER-ROOM SERVICE ASSOCIATE [address] [facility] [address] [place] [address] Referral ID Status Reason Start Date Expiration Date V isits Requested Visits Authorized [id number] Authorized 06/09/2023 06/08/2024 1 1 Reason Comments New Patient Visit Leg Swelling, test r esults from [place] Specialty Diagnoses / Procedures Referred By Contac t Referred To Contact Diagnoses Paroxysmal supraventricular tachycardia PAC (premature atrial contraction) Procedures ECG 12 Lead Lois Holm MD [address] [facility] 2, [address] [place] [address] Referral ID Status Reason Start Date Expiration Date V isits Requested Visits Authorized [id number] Authorized 07/13/2023 07/12/2024 1 1 Reason Onset [...] Reason Comments Orders PAP RX. 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 Eds scheduling Reason Comments Med [...] Procedures GAMMAGARD LIQUID INJECTION Vera Najera MD [address] [place] [address] [place] [address] [address] [place] [address] Referral ID Status Reason Start Date Expiration Date V isits Requested Visits Authorized [id number] Authorized 04/03/2024 10/01/2024 7 7 Reason Comments Well Women Visit Reason Onset Date Comments SPP Inflammatory Conditions - Medication Refill 06/06/2024 Benlysta Reason Comments Lab Orders Reason Comments Art Therapy Reason Comments Anemia Reason Comments Breath Hydrogen Test SIBO Breath Test Reason Onset Date Comments SPP Inflammatory Conditions - Medication Refill 06/29/2024 Benlysta Reason Comments poss raynauds Specialty Diagnoses / Procedures Referred By Contac t Referred To Contact Vascular Surgery Diagnoses Cold extremities Pain of lower extremity, unspecified laterality Gay Enciso, [employer] DEVELOPER-ROOM SERVICE ASSOCIATE [address] [place] [address] Phone: tel:[phone] fax: Hayden Arciniega MD [address] [place] [address] Phone: tel:[phone] fax: Referral ID Status Reason Start Date Expiration Date Visits Requested Visits Authorized [id number] Pending Review Specialty Services Required 03/15/2025 1 1 Reason Comments Mouth/Lip Problem Since February Reason Onset Date Comments SPP Inflammatory Conditions - Medication Refill 07/25/2024 Benlysta Reason Comments Follow-up Skin Check Reason Comments Annual Exam Specialty Diagnoses / Procedures Referred By Nahid t Referred To Contact Cardiology Diagnoses Shortness of breath Paroxysmal supraventricular tachycardia (CMS-HCC) PAC (premature atrial contraction) Procedures Follow Up In Cardiology Lois Holm MD [address] [place] [address], [address] [address] Phone: tel: fax: Lois Holm MD [address] [place] [address] 2, [address] [address] Phone: tel: fax: Referral ID Status Reason Start Date Expiration Date V isits Requested Visits Authorized [id number] Authorized 07/13/2023 07/12/2024 1 1 Reason Comments Med Change Request Reason Comments Patient Question Reason Onset Date Comments SPP Inflammatory Conditions - Medication Refill 08/17/2024 Benlysta Reason Onset Date Comments Refill Request 09/01/2024 Reason Comments Thyroid Nodule Follow up ultrasound [facility] 08/24/24 Reason Comments Megaloblastic anemia due to vitamin B12 deficiency Treatment visit Reason Onset Date Comments Results 09/07/2024 Reason Comments Medication Preauthorization Appointment Reason Comments Future Appointment Reason Onset Date Comments SPP Inflammatory Conditions - Medication Refill 09/20/2024 Benlysta Reason Comments Joint Pain Reason Comments Patient Update Appointment Reason Comments SLE Osteoarthritis Reason Comments Consult hypermobility Specialty Diagnoses / Procedures Referred By Contac t Referred To Contact Genetics / MEDICAL GENETICS Diagnoses hEDS with concerns and wants CTD evaluation Procedures EST PATIENT Self Ny Beebe MD [address] [place] [address] Phone: tel: fax: Referral ID Status Reason Start Date Expiration Date V isits Requested Visits Authorized [id number] Pending Review 09/19/2024 12/18/2024 1 1 Reason Comments Follow-up Reason Comments Hypogammagloblinemia Megablastic anemia OTV Reason Onset Date Comments Results 11/30/2024 Reason Comments Follow-up Suspicious Skin Lesion Ordered Prescriptions (unrec ognized section and content) [...] or prosecute any alcohol or drug abuse patient.[facility] the event this information is protected by the Federal Confidentiality of Alcohol and Drug Abuse Patient Records regulations: The Federal rules restrict any use of the information to criminally investigate or prosecute any alcohol or drug abuse patient.[facility] the event this information is protected by the Federal Confidentiality of Alcohol and Drug Abuse Patient Records regulations: The Federal rules restrict any use of the information to criminally investigate or prosecute any alcohol or drug abuse patient.[facility] the event this information is protected by the Federal Confidentiality of Alcohol and Drug Abuse Patient Records regulations: The Federal rules restrict any use of the information to criminally investigate or prosecute any alcohol or drug abuse patient.[facility] the event this information is protected by the Federal Confidentiality of Alcohol and Drug Abuse Patient Records regulations: The Federal rules restrict any use of the information to criminally investigate or prosecute any alcohol or drug abuse patient.[facility] the event this information is protected by the Federal Confidentiality of Alcohol and Drug Abuse Patient Records regulations: The Federal rules restrict any use of the information to criminally investigate or prosecute any alcohol or drug abuse patient.[facility] the event this information is protected by the Federal Confidentiality of Alcohol and Drug Abuse Patient Records regulations: The Federal rules restrict any use of the information to criminally investigate or prosecute any alcohol or drug abuse patient.[facility] the event this information is protected by the Federal Confidentiality of Alcohol and Drug Abuse Patient Records regulations: The Federal rules restrict any use of the information to criminally investigate or prosecute any alcohol or drug abuse patient.[facility] the event this information is protected by the Federal Confidentiality of Alcohol and Drug Abuse Patient Records regulations: The Federal rules restrict any use of the information to criminally investigate or prosecute any alcohol or drug abuse patient.[facility] Hospital[facility] the event this information is protected by the Federal Confidentiality of Alcohol and Drug Abuse Patient Records regulations: The Federal rules restrict any use of the information to criminally investigate or prosecute any alcohol or drug abuse patient.[facility] the event this information is protected by the Federal Confidentiality of Alcohol and Drug Abuse Patient Records regulations: The Federal rules restrict any use of the information to criminally investigate or prosecute any alcohol or drug abuse patient.[facility] Hospital[facility] the event this information is protected by the Federal Confidentiality of Alcohol and Drug Abuse Patient Records regulations: The Federal rules restrict any use of the information to criminally investigate or prosecute any alcohol or drug abuse patient.[facility] HospitalIn the event this information is protected by the Federal Confidentiality of Alcohol and Drug Abuse Patient Records regulations: The Federal rules restrict any use of the information to criminally investigate or prosecute any alcohol or drug abuse patient.[facility] HospitalIn the event this information is protected by the Federal Confidentiality of Alcohol and Drug Abuse Patient Records regulations: The Federal rules restrict any use of the information to criminally investigate or prosecute any alcohol or drug abuse patient.[facility] HospitalIn the event this information is protected by the Federal Confidentiality of Alcohol and Drug Abuse Patient Records regulations: The Federal rules restrict any use of the information to criminally investigate or prosecute any alcohol or drug abuse patient.[facility] HospitalIn the event this information is protected by the Federal Confidentiality of Alcohol and Drug Abuse Patient Records regulations: The Federal rules restrict any use of the information to criminally investigate or prosecute any alcohol or drug abuse patient.[facility]In the event this information is protected by the Federal Confidentiality of Alcohol and Drug Abuse Patient Records regulations: The Federal rules restrict any use of the information to criminally investigate or prosecute any alcohol or drug abuse patient.[facility] HospitalIn the event this information is protected by the Federal Confidentiality of Alcohol and Drug Abuse Patient Records regulations: The Federal rules restrict any use of the information to criminally investigate or prosecute any alcohol or drug abuse patient.[facility] HospitalIn the event this information is protected by the Federal Confidentiality of Alcohol and Drug Abuse Patient Records regulations: The Federal rules restrict any use of the information to criminally investigate or prosecute any alcohol or drug abuse patient.[facility] HospitalIn the event this information is protected by the Federal Confidentiality of Alcohol and Drug Abuse Patient Records regulations: The Federal rules restrict any use of the information to criminally investigate or prosecute any alcohol or drug abuse patient.[facility] HospitalIn the event this information is protected by the Federal Confidentiality of Alcohol and Drug Abuse Patient Records regulations: The Federal rules restrict any use of the information to criminally investigate or prosecute any alcohol or drug abuse patient.[facility] HospitalIn the event this information is protected by the Federal Confidentiality of Alcohol and Drug Abuse Patient Records regulations: The Federal rules restrict any use of the information to criminally investigate or prosecute any alcohol or drug abuse patient.[facility]In the event this information is protected by the Federal Confidentiality of Alcohol and Drug Abuse Patient Records regulations: The Federal rules restrict any use of the information to criminally investigate or prosecute any alcohol or drug abuse patient.[facility]In the event this information is protected by the Federal Confidentiality of Alcohol and Drug Abuse Patient Records regulations: The Federal rules restrict any use of the information to criminally investigate or prosecute any alcohol or drug abuse patient.[facility] HospitalIn the event this information is protected by the Federal Confidentiality of Alcohol and Drug Abuse Patient Records regulations: The Federal rules restrict any use of the information to criminally investigate or prosecute any alcohol or drug abuse patient.[facility] HospitalIn the event this information is protected by the Federal Confidentiality of Alcohol and Drug Abuse Patient Records regulations: The Federal rules restrict any use of the information to criminally investigate or prosecute any alcohol or drug abuse patient.[facility] HospitalIn the event this information is protected by the Federal Confidentiality of Alcohol and Drug Abuse Patient Records regulations: The Federal rules restrict any use of the information to criminally investigate or prosecute any alcohol or drug abuse patient.[facility] HospitalIn the event this information is protected by the Federal Confidentiality of Alcohol and Drug Abuse Patient Records regulations: The Federal rules restrict any use of the information to criminally investigate or prosecute any alcohol or drug abuse patient.[facility] HospitalIn the event this information is protected by the Federal Confidentiality of Alcohol and Drug Abuse Patient Records regulations: The Federal rules restrict any use of the information to criminally investigate or prosecute any alcohol or drug abuse patient.[facility] HospitalIn the event this information is protected by the Federal Confidentiality of Alcohol and Drug Abuse Patient Records regulations: The Federal rules restrict any use of the information to criminally investigate or prosecute any alcohol or drug abuse patient.[facility] HospitalIn the event this information is protected by the Federal Confidentiality of Alcohol and Drug Abuse Patient Records regulations: The Federal rules restrict any use of the information to criminally investigate or prosecute any alcohol or drug abuse patient.[facility] HospitalIn the event this information is protected by the Federal Confidentiality of Alcohol and Drug Abuse Patient Records regulations: The Federal rules restrict any use of the information to criminally investigate or prosecute any alcohol or drug abuse patient.[facility] HospitalIn the event this information is protected by the Federal Confidentiality of Alcohol and Drug Abuse Patient Records regulations: The Federal rules restrict any use of the information to criminally investigate or prosecute any alcohol or drug abuse patient.[facility] HospitalIn the event this information is protected by the Federal Confidentiality of Alcohol and Drug Abuse Patient Records regulations: The Federal rules restrict any use of the information to criminally investigate or prosecute any alcohol or drug abuse patient.[facility] HospitalIn the event this information is protected by the Federal Confidentiality of Alcohol and Drug Abuse Patient Records regulations: The Federal rules restrict any use of the information to criminally investigate or prosecute any alcohol or drug abuse patient.[facility] HospitalIn the event this information is protected by the Federal Confidentiality of Alcohol and Drug Abuse Patient Records regulations: The Federal rules restrict any use of the information to criminally investigate or prosecute any alcohol or drug abuse patient.[facility] HospitalIn the event this information is protected by the Federal Confidentiality of Alcohol and Drug Abuse Patient Records regulations: The Federal rules restrict any use of the information to criminally investigate or prosecute any alcohol or drug abuse patient.[facility] the event this information is protected by the Federal Confidentiality of Alcohol and Drug Abuse Patient Records regulations: The Federal rules restrict any use of the information to criminally investigate or prosecute any alcohol or drug abuse patient.[facility] HospitalIn the event this information is protected by the Federal Confidentiality of Alcohol and Drug Abuse Patient Records regulations: The Federal rules restrict any use of the information to criminally investigate or prosecute any alcohol or drug abuse patient.[facility] HospitalIn the event this information is protected by the Federal Confidentiality of Alcohol and Drug Abuse Patient Records regulations: The Federal rules restrict any use of the information to criminally investigate or prosecute any alcohol or drug abuse patient.[facility] HospitalIn the event this information is protected by the Federal Confidentiality of Alcohol and Drug Abuse Patient Records regulations: The Federal rules restrict any use of the information to criminally investigate or prosecute any alcohol or drug abuse patient.[facility] HospitalIn the event this information is protected by the Federal Confidentiality of Alcohol and Drug Abuse Patient Records regulations: The Federal rules restrict any use of the information to criminally investigate or prosecute any alcohol or drug abuse patient.[facility] HospitalIn the event this information is protected by the Federal Confidentiality of Alcohol and Drug Abuse Patient Records regulations: The Federal rules restrict any use of the information to criminally investigate or prosecute any alcohol or drug abuse patient.[facility] HospitalIn the event this information is protected by the Federal Confidentiality of Alcohol and Drug Abuse Patient Records regulations: The Federal rules restrict any use of the information to criminally investigate or prosecute any alcohol or drug abuse patient.[facility] HospitalIn the event this information is protected by the Federal Confidentiality of Alcohol and Drug Abuse Patient Records regulations: The Federal rules restrict any use of the information to criminally investigate or prosecute any alcohol or drug abuse patient.[facility] HospitalIn the event this information is protected by the Federal Confidentiality of Alcohol and Drug Abuse Patient Records regulations: The Federal rules restrict any use of the information to criminally investigate or prosecute any alcohol or drug abuse patient.[facility] HospitalIn the event this information is protected by the Federal Confidentiality of Alcohol and Drug Abuse Patient Records regulations: The Federal rules restrict any use of the information to criminally investigate or prosecute any alcohol or drug abuse patient.[facility]In the event this information is protected by the Federal Confidentiality of Alcohol and Drug Abuse Patient Records regulations: The Federal rules restrict any use of the information to criminally investigate or prosecute any alcohol or drug abuse patient.[facility] HospitalIn the event this information is protected by the Federal Confidentiality of Alcohol and Drug Abuse Patient Records regulations: The Federal rules restrict any use of the information to criminally investigate or prosecute any alcohol or drug abuse patient.[facility]In the event this information is protected by the Federal Confidentiality of Alcohol and Drug Abuse Patient Records regulations: The Federal rules restrict any use of the information to criminally investigate or prosecute any alcohol or drug abuse patient.[facility] HospitalIn the event this information is protected by the Federal Confidentiality of Alcohol and Drug Abuse Patient Records regulations: The Federal rules restrict any use of the information to criminally investigate or prosecute any alcohol or drug abuse patient.[facility]In the event this information is protected by the Federal Confidentiality of Alcohol and Drug Abuse Patient Records regulations: The Federal rules restrict any use of the information to criminally investigate or prosecute any alcohol or drug abuse patient.[facility] HospitalIn the event this information is protected by the Federal Confidentiality of Alcohol and Drug Abuse Patient Records regulations: The Federal rules restrict any use of the information to criminally investigate or prosecute any alcohol or drug abuse patient.[facility] HospitalIn the event this information is protected by the Federal Confidentiality of Alcohol and Drug Abuse Patient Records regulations: The Federal rules restrict any use of the information to criminally investigate or prosecute any alcohol or drug abuse patient.[facility] HospitalIn the event this information is protected by the Federal Confidentiality of Alcohol and Drug Abuse Patient Records regulations: The Federal rules restrict any use of the information to criminally investigate or prosecute any alcohol or drug abuse patient.[facility] HospitalIn the event this information is protected by the Federal Confidentiality of Alcohol and Drug Abuse Patient Records regulations: The Federal rules restrict any use of the information to criminally investigate or prosecute any alcohol or drug abuse patient.[facility] HospitalIn the event this information is protected by the Federal Confidentiality of Alcohol and Drug Abuse Patient Records regulations: The Federal rules restrict any use of the information to criminally investigate or prosecute any alcohol or drug abuse patient.[facility] HospitalIn the event this information is protected by the Federal Confidentiality of Alcohol and Drug Abuse Patient Records regulations: The Federal rules restrict any use of the information to criminally investigate or prosecute any alcohol or drug abuse patient.[facility] HospitalIn the event this information is protected by the Federal Confidentiality of Alcohol and Drug Abuse Patient Records regulations: The Federal rules restrict any use of the information to criminally investigate or prosecute any alcohol or drug abuse patient.[facility] HospitalIn the event this information is protected by the Federal Confidentiality of Alcohol and Drug Abuse Patient Records regulations: The Federal rules restrict any use of the information to criminally investigate or prosecute any alcohol or drug abuse patient.[facility]In the event this information is protected by the Federal Confidentiality of Alcohol and Drug Abuse Patient Records regulations: The Federal rules restrict any use of the information to criminally investigate or prosecute any alcohol or drug abuse patient.[facility] HospitalIn the event this information is protected by the Federal Confidentiality of Alcohol and Drug Abuse Patient Records regulations: The Federal rules restrict any use of the information to criminally investigate or prosecute any alcohol or drug abuse patient.[facility] HospitalIn the event this information is protected by the Federal Confidentiality of Alcohol and Drug Abuse Patient Records regulations: The Federal rules restrict any use of the information to criminally investigate or prosecute any alcohol or drug abuse patient.[facility] HospitalIn the event this information is protected by the Federal Confidentiality of Alcohol and Drug Abuse Patient Records regulations: The Federal rules restrict any use of the information to criminally investigate or prosecute any alcohol or drug abuse patient.[facility]In the event this information is protected by the Federal Confidentiality of Alcohol and Drug Abuse Patient Records regulations: The Federal rules restrict any use of the information to criminally investigate or prosecute any alcohol or drug abuse patient.[facility] HospitalIn the event this information is protected by the Federal Confidentiality of Alcohol and Drug Abuse Patient Records regulations: The Federal rules restrict any use of the information to criminally investigate or prosecute any alcohol or drug abuse patient.[facility]In the event this information is protected by the Federal Confidentiality of Alcohol and Drug Abuse Patient Records regulations: The Federal rules restrict any use of the information to criminally investigate or prosecute any alcohol or drug abuse patient.[facility]In the event this information is protected by the Federal Confidentiality of Alcohol and Drug Abuse Patient Records regulations: The Federal rules restrict any use of the information to criminally investigate or prosecute any alcohol or drug abuse patient.[facility] HospitalIn the event this information is protected by the Federal Confidentiality of Alcohol and Drug Abuse Patient Records regulations: The Federal rules restrict any use of the information to criminally investigate or prosecute any alcohol or drug abuse patient.[facility] HospitalIn the event this information is protected by the Federal Confidentiality of Alcohol and Drug Abuse Patient Records regulations: The Federal rules restrict any use of the information to criminally investigate or prosecute any alcohol or drug abuse patient.[facility]In the event this information is protected by the Federal Confidentiality of Alcohol and Drug Abuse Patient Records regulations: The Federal rules restrict any use of the information to criminally investigate or prosecute any alcohol or drug abuse patient.[facility]In the event this information is protected by the Federal Confidentiality of Alcohol and Drug Abuse Patient Records regulations: The Federal rules restrict any use of the information to criminally investigate or prosecute any alcohol or drug abuse patient.[facility]In the event this information is protected by the Federal Confidentiality of Alcohol and Drug Abuse Patient Records regulations: The Federal rules restrict any use of the information to criminally investigate or prosecute any alcohol or drug abuse patient.[facility]In the event this information is protected by the Federal Confidentiality of Alcohol and Drug Abuse Patient Records regulations: The Federal rules restrict any use of the information to criminally investigate or prosecute any alcohol or drug abuse patient.[facility]In the event this information is protected by the Federal Confidentiality of Alcohol and Drug Abuse Patient Records regulations: The Federal rules restrict any use of the information to criminally investigate or prosecute any alcohol or drug abuse patient.[facility]In the event this information is protected by the Federal Confidentiality of Alcohol and Drug Abuse Patient Records regulations: The Federal rules restrict any use of the information to criminally investigate or prosecute any alcohol or drug abuse patient.[facility]In the event this information is protected by the Federal Confidentiality of Alcohol and Drug Abuse Patient Records regulations: The Federal rules restrict any use of the information to criminally investigate or prosecute any alcohol or drug abuse patient.[facility]In the event this information is protected by the Federal Confidentiality of Alcohol and Drug Abuse Patient Records regulations: The Federal rules restrict any use of the information to criminally investigate or prosecute any alcohol or drug abuse patient.[facility]In the event this information is protected by the Federal Confidentiality of Alcohol and Drug Abuse Patient Records regulations: The Federal rules restrict any use of the information to criminally investigate or prosecute any alcohol or drug abuse patient.[facility]In the event this information is protected by the Federal Confidentiality of Alcohol and Drug Abuse Patient Records regulations: The Federal rules restrict any use of the information to criminally investigate or prosecute any alcohol or drug abuse patient.[facility]In the event this information is protected by the Federal Confidentiality of Alcohol and Drug Abuse Patient Records regulations: The Federal rules restrict any use of the information to criminally investigate or prosecute any alcohol or drug abuse patient.[facility]In the event this information is protected by the Federal Confidentiality of Alcohol and Drug Abuse Patient Records regulations: The Federal rules restrict any use of the information to criminally investigate or prosecute any alcohol or drug abuse patient.[facility]In the event this information is protected by the Federal Confidentiality of Alcohol and Drug Abuse Patient Records regulations: The Federal rules restrict any use of the information to criminally investigate or prosecute any alcohol or drug abuse patient.[facility]In the event this information is protected by the Federal Confidentiality of Alcohol and Drug Abuse Patient Records regulations: The Federal rules restrict any use of the information to criminally investigate or prosecute any alcohol or drug abuse patient.[facility]In the event this information is protected by the Federal Confidentiality of Alcohol and Drug Abuse Patient Records regulations: The Federal rules restrict any use of the information to criminally investigate or prosecute any alcohol or drug abuse patient.[facility]In the event this information is protected by the Federal Confidentiality of Alcohol and Drug Abuse Patient Records regulations: The Federal rules restrict any use of the information to criminally investigate or prosecute any alcohol or drug abuse patient.[facility]In the event this information is protected by the Federal Confidentiality of Alcohol and Drug Abuse Patient Records regulations: The Federal rules restrict any use of the information to criminally investigate or prosecute any alcohol or drug abuse patient.[facility] the event this information is protected by the Federal Confidentiality of Alcohol and Drug Abuse Patient Records regulations: The Federal rules restrict any use of the information to criminally investigate or prosecute any alcohol or drug abuse patient.[facility]In the event this information is protected by the Federal Confidentiality of Alcohol and Drug Abuse Patient Records regulations: The Federal rules restrict any use of the information to criminally investigate or prosecute any alcohol or drug abuse patient.[facility]In the event this information is protected by the Federal Confidentiality of Alcohol and Drug Abuse Patient Records regulations: The Federal rules restrict any use of the information to criminally investigate or prosecute any alcohol or drug abuse patient.[facility]In the event this information is protected by the Federal Confidentiality of Alcohol and Drug Abuse Patient Records regulations: The Federal rules restrict any use of the information to criminally investigate or prosecute any alcohol or drug abuse patient.[facility]In the event this information is protected by the Federal Confidentiality of Alcohol and Drug Abuse Patient Records regulations: The Federal rules restrict any use of the information to criminally investigate or prosecute any alcohol or drug abuse patient.[facility]In the event this information is protected by the Federal Confidentiality of Alcohol and Drug Abuse Patient Records regulations: The Federal rules restrict any use of the information to criminally investigate or prosecute any alcohol or drug abuse patient.[facility]In the event this information is protected by the Federal Confidentiality of Alcohol and Drug Abuse Patient Records regulations: The Federal rules restrict any use of the information to criminally investigate or prosecute any alcohol or drug abuse patient.[facility]In the event this information is protected by the Federal Confidentiality of Alcohol and Drug Abuse Patient Records regulations: The Federal rules restrict any use of the information to criminally investigate or prosecute any alcohol or drug abuse patient.[facility]In the event this information is protected by the Federal Confidentiality of Alcohol and Drug Abuse Patient Records regulations: The Federal rules restrict any use of the information to criminally investigate or prosecute any alcohol or drug abuse patient.[facility]In the event this information is protected by the Federal Confidentiality of Alcohol and Drug Abuse Patient Records regulations: The Federal rules restrict any use of the information to criminally investigate or prosecute any alcohol or drug abuse patient.[facility]In the event this information is protected by the Federal Confidentiality of Alcohol and Drug Abuse Patient Records regulations: The Federal rules restrict any use of the information to criminally investigate or prosecute any alcohol or drug abuse patient.[facility]In the event this information is protected by the Federal Confidentiality of Alcohol and Drug Abuse Patient Records regulations: The Federal rules restrict any use of the information to criminally investigate or prosecute any alcohol or drug abuse patient.[facility]In the event this information is protected by the Federal Confidentiality of Alcohol and Drug Abuse Patient Records regulations: The Federal rules restrict any use of the information to criminally investigate or prosecute any alcohol or drug abuse patient.[facility] HospitalIn the event this information is protected by the Federal Confidentiality of Alcohol and Drug Abuse Patient Records regulations: The Federal rules restrict any use of the information to criminally investigate or prosecute any alcohol or drug abuse patient.[facility]In the event this information is protected by the Federal Confidentiality of Alcohol and Drug Abuse Patient Records regulations: The Federal rules restrict any use of the information to criminally investigate or prosecute any alcohol or drug abuse patient.[facility] HospitalIn the event this information is protected by the Federal Confidentiality of Alcohol and Drug Abuse Patient Records regulations: The Federal rules restrict any use of the information to criminally investigate or prosecute any alcohol or drug abuse patient.[facility] HospitalIn the event this information is protected by the Federal Confidentiality of Alcohol and Drug Abuse Patient Records regulations: The Federal rules restrict any use of the information to criminally investigate or prosecute any alcohol or drug abuse patient.[facility] HospitalIn the event this information is protected by the Federal Confidentiality of Alcohol and Drug Abuse Patient Records regulations: The Federal rules restrict any use of the information to criminally investigate or prosecute any alcohol or drug abuse patient.[facility] HospitalIn the event this information is protected by the Federal Confidentiality of Alcohol and Drug Abuse Patient Records regulations: The Federal rules restrict any use of the information to criminally investigate or prosecute any alcohol or drug abuse patient.[facility] HospitalIn the event this information is protected by the Federal Confidentiality of Alcohol and Drug Abuse Patient Records regulations: The Federal rules restrict any use of the information to criminally investigate or prosecute any alcohol or drug abuse patient.[facility] HospitalIn the event this information is protected by the Federal Confidentiality of Alcohol and Drug Abuse Patient Records regulations: The Federal rules restrict any use of the information to criminally investigate or prosecute any alcohol or drug abuse patient.[facility] HospitalIn the event this information is protected by the Federal Confidentiality of Alcohol and Drug Abuse Patient Records regulations: The Federal rules restrict any use of the information to criminally investigate or prosecute any alcohol or drug abuse patient.[facility] HospitalIn the event this information is protected by the Federal Confidentiality of Alcohol and Drug Abuse Patient Records regulations: The Federal rules restrict any use of the information to criminally investigate or prosecute any alcohol or drug abuse patient.[facility] HospitalIn the event this information is protected by the Federal Confidentiality of Alcohol and Drug Abuse Patient Records regulations: The Federal rules restrict any use of the information to criminally investigate or prosecute any alcohol or drug abuse patient.[facility] HospitalIn the event this information is protected by the Federal Confidentiality of Alcohol and Drug Abuse Patient Records regulations: The Federal rules restrict any use of the information to criminally investigate or prosecute any alcohol or drug abuse patient.[facility] HospitalIn the event this information is protected by the Federal Confidentiality of Alcohol and Drug Abuse Patient Records regulations: The Federal rules restrict any use of the information to criminally investigate or prosecute any alcohol or drug abuse patient.[facility] HospitalIn the event this information is protected by the Federal Confidentiality of Alcohol and Drug Abuse Patient Records regulations: The Federal rules restrict any use of the information to criminally investigate or prosecute any alcohol or drug abuse patient.[facility] HospitalIn the event this information is protected by the Federal Confidentiality of Alcohol and Drug Abuse Patient Records regulations: The Federal rules restrict any use of the information to criminally investigate or prosecute any alcohol or drug abuse patient.[facility] HospitalIn the event this information is protected by the Federal Confidentiality of Alcohol and Drug Abuse Patient Records regulations: The Federal rules restrict any use of the information to criminally investigate or prosecute any alcohol or drug abuse patient.[facility] HospitalIn the event this information is protected by the Federal Confidentiality of Alcohol and Drug Abuse Patient Records regulations: The Federal rules restrict any use of the information to criminally investigate or prosecute any alcohol or drug abuse patient.[facility] HospitalIn the event this information is protected by the Federal Confidentiality of Alcohol and Drug Abuse Patient Records regulations: The Federal rules restrict any use of the information to criminally investigate or prosecute any alcohol or drug abuse patient.[facility] HospitalIn the event this information is protected by the Federal Confidentiality of Alcohol and Drug Abuse Patient Records regulations: The Federal rules restrict any use of the information to criminally investigate or prosecute any alcohol or drug abuse patient.[facility] HospitalIn the event this information is protected by the Federal Confidentiality of Alcohol and Drug Abuse Patient Records regulations: The Federal rules restrict any use of the information to criminally investigate or prosecute any alcohol or drug abuse patient.[facility] HospitalIn the event this information is protected by the Federal Confidentiality of Alcohol and Drug Abuse Patient Records regulations: The Federal rules restrict any use of the information to criminally investigate or prosecute any alcohol or drug abuse patient.[facility] HospitalIn the event this information is protected by the Federal Confidentiality of Alcohol and Drug Abuse Patient Records regulations: The Federal rules restrict any use of the information to criminally investigate or prosecute any alcohol or drug abuse patient.[facility] HospitalIn the event this information is protected by the Federal Confidentiality of Alcohol and Drug Abuse Patient Records regulations: The Federal rules restrict any use of the information to criminally investigate or prosecute any alcohol or drug abuse patient.[facility] HospitalIn the event this information is protected by the Federal Confidentiality of Alcohol and Drug Abuse Patient Records regulations: The Federal rules restrict any use of the information to criminally investigate or prosecute any alcohol or drug abuse patient.[facility] HospitalIn the event this information is protected by the Federal Confidentiality of Alcohol and Drug Abuse Patient Records regulations: The Federal rules restrict any use of the information to criminally investigate or prosecute any alcohol or drug abuse patient.[facility] HospitalIn the event this information is protected by the Federal Confidentiality of Alcohol and Drug Abuse Patient Records regulations: The Federal rules restrict any use of the information to criminally investigate or prosecute any alcohol or drug abuse patient.[facility] HospitalIn the event this information is protected by the Federal Confidentiality of Alcohol and Drug Abuse Patient Records regulations: The Federal rules restrict any use of the information to criminally investigate or prosecute any alcohol or drug abuse patient.[facility] HospitalIn the event this information is protected by the Federal Confidentiality of Alcohol and Drug Abuse Patient Records regulations: The Federal rules restrict any use of the information to criminally investigate or prosecute any alcohol or drug abuse patient.[facility] HospitalIn the event this information is protected by the Federal Confidentiality of Alcohol and Drug Abuse Patient Records regulations: The Federal rules restrict any use of the information to criminally investigate or prosecute any alcohol or drug abuse patient.[facility] HospitalIn the event this information is protected by the Federal Confidentiality of Alcohol and Drug Abuse Patient Records regulations: The Federal rules restrict any use of the information to criminally investigate or prosecute any alcohol or drug abuse patient.[facility] HospitalIn the event this information is protected by the Federal Confidentiality of Alcohol and Drug Abuse Patient Records regulations: The Federal rules restrict any use of the information to criminally investigate or prosecute any alcohol or drug abuse patient.[facility] HospitalIn the event this information is protected by the Federal Confidentiality of Alcohol and Drug Abuse Patient Records regulations: The Federal rules restrict any use of the information to criminally investigate or prosecute any alcohol or drug abuse patient.[facility] HospitalIn the event this information is protected by the Federal Confidentiality of Alcohol and Drug Abuse Patient Records regulations: The Federal rules restrict any use of the information to criminally investigate or prosecute any alcohol or drug abuse patient.[facility] HospitalIn the event this information is protected by the Federal Confidentiality of Alcohol and Drug Abuse Patient Records regulations: The Federal rules restrict any use of the information to criminally investigate or prosecute any alcohol or drug abuse patient.[facility] HospitalIn the event this information is protected by the Federal Confidentiality of Alcohol and Drug Abuse Patient Records regulations: The Federal rules restrict any use of the information to criminally investigate or prosecute any alcohol or drug abuse patient.[facility] HospitalIn the event this information is protected by the Federal Confidentiality of Alcohol and Drug Abuse Patient Records regulations: The Federal rules restrict any use of the information to criminally investigate or prosecute any alcohol or drug abuse patient.[facility] HospitalIn the event this information is protected by the Federal Confidentiality of Alcohol and Drug Abuse Patient Records regulations: The Federal rules restrict any use of the information to criminally investigate or prosecute any alcohol or drug abuse patient.[facility] the event this information is protected by the Federal Confidentiality of Alcohol and Drug Abuse Patient Records regulations: The Federal rules restrict any use of the information to criminally investigate or prosecute any alcohol or drug abuse patient.[facility] HospitalIn the event this information is protected by the Federal Confidentiality of Alcohol and Drug Abuse Patient Records regulations: The Federal rules restrict any use of the information to criminally investigate or prosecute any alcohol or drug abuse patient.[facility] HospitalIn the event this information is protected by the Federal Confidentiality of Alcohol and Drug Abuse Patient Records regulations: The Federal rules restrict any use of the information to criminally investigate or prosecute any alcohol or drug abuse patient.[facility] HospitalIn the event this information is protected by the Federal Confidentiality of Alcohol and Drug Abuse Patient Records regulations: The Federal rules restrict any use of the information to criminally investigate or prosecute any alcohol or drug abuse patient.[facility] HospitalIn the event this information is protected by the Federal Confidentiality of Alcohol and Drug Abuse Patient Records regulations: The Federal rules restrict any use of the information to criminally investigate or prosecute any alcohol or drug abuse patient.[facility] HospitalIn the event this information is protected by the Federal Confidentiality of Alcohol and Drug Abuse Patient Records regulations: The Federal rules restrict any use of the information to criminally investigate or prosecute any alcohol or drug abuse patient.[facility] HospitalIn the event this information is protected by the Federal Confidentiality of Alcohol and Drug Abuse Patient Records regulations: The Federal rules restrict any use of the information to criminally investigate or prosecute any alcohol or drug abuse patient.[facility] HospitalIn the event this information is protected by the Federal Confidentiality of Alcohol and Drug Abuse Patient Records regulations: The Federal rules restrict any use of the information to criminally investigate or prosecute any alcohol or drug abuse patient.[facility] HospitalIn the event this information is protected by the Federal Confidentiality of Alcohol and Drug Abuse Patient Records regulations: The Federal rules restrict any use of the information to criminally investigate or prosecute any alcohol or drug abuse patient.[facility] HospitalIn the event this information is protected by the Federal Confidentiality of Alcohol and Drug Abuse Patient Records regulations: The Federal rules restrict any use of the information to criminally investigate or prosecute any alcohol or drug abuse patient.[facility] HospitalIn the event this information is protected by the Federal Confidentiality of Alcohol and Drug Abuse Patient Records regulations: The Federal rules restrict any use of the information to criminally investigate or prosecute any alcohol or drug abuse patient.[facility] HospitalIn the event this information is protected by the Federal Confidentiality of Alcohol and Drug Abuse Patient Records regulations: The Federal rules restrict any use of the information to criminally investigate or prosecute any alcohol or drug abuse patient.[facility] HospitalIn the event this information is protected by the Federal Confidentiality of Alcohol and Drug Abuse Patient Records regulations: The Federal rules restrict any use of the information to criminally investigate or prosecute any alcohol or drug abuse patient.[facility] HospitalIn the event this information is protected by the Federal Confidentiality of Alcohol and Drug Abuse Patient Records regulations: The Federal rules restrict any use of the information to criminally investigate or prosecute any alcohol or drug abuse patient.[facility] HospitalIn the event this information is protected by the Federal Confidentiality of Alcohol and Drug Abuse Patient Records regulations: The Federal rules restrict any use of the information to criminally investigate or prosecute any alcohol or drug abuse patient.[facility] HospitalIn the event this information is protected by the Federal Confidentiality of Alcohol and Drug Abuse Patient Records regulations: The Federal rules restrict any use of the information to criminally investigate or prosecute any alcohol or drug abuse patient.[facility] HospitalIn the event this information is protected by the Federal Confidentiality of Alcohol and Drug Abuse Patient Records regulations: The Federal rules restrict any use of the information to criminally investigate or prosecute any alcohol or drug abuse patient.[facility] HospitalIn the event this information is protected by the Federal Confidentiality of Alcohol and Drug Abuse Patient Records regulations: The Federal rules restrict any use of the information to criminally investigate or prosecute any alcohol or drug abuse patient.[facility] HospitalIn the event this information is protected by the Federal Confidentiality of Alcohol and Drug Abuse Patient Records regulations: The Federal rules restrict any use of the information to criminally investigate or prosecute any alcohol or drug abuse patient.[facility] HospitalIn the event this information is protected by the Federal Confidentiality of Alcohol and Drug Abuse Patient Records regulations: The Federal rules restrict any use of the information to criminally investigate or prosecute any alcohol or drug abuse patient.[facility] HospitalIn the event this information is protected by the Federal Confidentiality of Alcohol and Drug Abuse Patient Records regulations: The Federal rules restrict any use of the information to criminally investigate or prosecute any alcohol or drug abuse patient.[facility] HospitalIn the event this information is protected by the Federal Confidentiality of Alcohol and Drug Abuse Patient Records regulations: The Federal rules restrict any use of the information to criminally investigate or prosecute any alcohol or drug abuse patient.[facility] HospitalIn the event this information is protected by the Federal Confidentiality of Alcohol and Drug Abuse Patient Records regulations: The Federal rules restrict any use of the information to criminally investigate or prosecute any alcohol or drug abuse patient.[facility] HospitalIn the event this information is protected by the Federal Confidentiality of Alcohol and Drug Abuse Patient Records regulations: The Federal rules restrict any use of the information to criminally investigate or prosecute any alcohol or drug abuse patient.[facility] HospitalIn the event this information is protected by the Federal Confidentiality of Alcohol and Drug Abuse Patient Records regulations: The Federal rules restrict any use of the information to criminally investigate or prosecute any alcohol or drug abuse patient.[facility] HospitalIn the event this information is protected by the Federal Confidentiality of Alcohol and Drug Abuse Patient Records regulations: The Federal rules restrict any use of the information to criminally investigate or prosecute any alcohol or drug abuse patient.[facility] HospitalIn the event this information is protected by the Federal Confidentiality of Alcohol and Drug Abuse Patient Records regulations: The Federal rules restrict any use of the information to criminally investigate or prosecute any alcohol or drug abuse patient.[facility] HospitalIn the event this information is protected by the Federal Confidentiality of Alcohol and Drug Abuse Patient Records regulations: The Federal rules restrict any use of the information to criminally investigate or prosecute any alcohol or drug abuse patient.[facility] HospitalIn the event this information is protected by the Federal Confidentiality of Alcohol and Drug Abuse Patient Records regulations: The Federal rules restrict any use of the information to criminally investigate or prosecute any alcohol or drug abuse patient.[facility] HospitalIn the event this information is protected by the Federal Confidentiality of Alcohol and Drug Abuse Patient Records regulations: The Federal rules restrict any use of the information to criminally investigate or prosecute any alcohol or drug abuse patient.[facility] HospitalIn the event this information is protected by the Federal Confidentiality of Alcohol and Drug Abuse Patient Records regulations: The Federal rules restrict any use of the information to criminally investigate or prosecute any alcohol or drug abuse patient.[facility] HospitalIn the event this information is protected by the Federal Confidentiality of Alcohol and Drug Abuse Patient Records regulations: The Federal rules restrict any use of the information to criminally investigate or prosecute any alcohol or drug abuse patient.[facility] HospitalIn the event this information is protected by the Federal Confidentiality of Alcohol and Drug Abuse Patient Records regulations: The Federal rules restrict any use of the information to criminally investigate or prosecute any alcohol or drug abuse patient.[facility] Care Teams (unrecognized sec tion and content) Team Status: Active Member Role Status Dates WALESKA Galloway Primary Care Provider Active Team Status: Active Member Role Status Dates WALESKA Galloway Primary Care Provider Active Start: November 21, 2024 Adolfo Kang MD Attending Provider Active Sta rt: November 21, 2024 Team Status: Inactive Member Role Status Dates WALESKA Galloway Primary Care Provider Active Start: November 21, 2024 End: November 21, 2024 Adolfo Kang MD Attending Provider Active Sta rt: November 21, 2024 End: November 21, 2024 Team Status: Active Member Role Status Dates Gay Enciso [employer] Primary Care Provider Active Start: November 22, 2024 Janes Barfield MD Attending Provider Active Start: November 22, 2024 Team Status: Inactive Member Role Status Dates Gay Enciso [employer] Primary Care Provider Active Start: November 30, 2024 End: November 30, 2024 Margie Arnett , [employer] Attending Provider Active Start: November 30, 2024 End: November 30, 2024 Team Status: Inactive Member Role Status Dates Gay Enciso [employer] Primary Care Provider Active Start: December 12, 2024 End: December 12, 2024 Bandar Portillo APRN Attending Provider Active Start: December 12, 2024 End: December 12, 2024 Team Status: Inactive Member Role Status Dates Gay Enciso [employer] Primary Care Provider Active Start: January 17, 2025 End: January 17, 2025 Margie Arnett , [employer] Attending Provider Active Start: January 17, 2025 End: January 17, 2025 Team Status: Active Member Role Status Dates Gay Enciso [employer] Primary Care Provider Active Start: January 31, 2025 Adolfo Kang MD Attending Provider Active Sta rt: January 31, 2025 Adolfo Kang MD Other Provider Active Start: January 31, 2025 Team Status: Inactive Member Role Status Dates Gay Enciso [employer] Primary Care Provider Active Start: February 14, 2025 End: February 14, 2025 Margie Arnett , [employer] Attending Provider Active Start: February 14, 2025 End: February 14, 2025 Team Status: Active Member Role Status Mark [...] November 04, 2023 End: November 04, 2023 Javascript Developer Relationship Specialty Start Date End Date Gay Enciso, [employer] [address] [place] [address] PCP - General Family Practice 10/24/21 Javascript Developer Relationship Specialty Start Date End Date Gay Enciso, [employer] SERV[employer] ASSOCIATE [address] [place] [address] PCP - General Family Medicine 10/24/21 Manuel Ferris MD [address] [place] [address] Referring Family Medicine 02/12/22 Javascript Developer Relationship Specialty Start Date End Date Manuel Ferris MD [address] [place] [address] PCP - General Family Medicine 02/27/22 Manuel Ferris MD [address] [facility] [place] [address] Referring Family Medicine 02/12/22 Javascript Developer Relationship Specialty Start Date End Date Manuel Ferris MD [address] [place] [address] PCP - General Family Medicine 02/27/22 Manuel Ferris MD [address] [facility] [place] [address] Referring Family Medicine 02/12/22 Javascript Developer Relationship Specialty Start Date End Date Manuel Ferris MD [address] [place] [address] PCP - General Family Medicine 02/27/22 Manuel Ferris MD [address] [facility] [place] [address] Referring Family Medicine 02/12/22 Javascript Developer Relationship Specialty Start Date End Date Manuel Ferris MD [address] [facility] [place] [address] PCP - General Family Medicine 02/27/22 Manuel Ferris MD [address] [facility] [place] [address] Referring Family Medicine 02/12/22 Javascript Developer Relationship Specialty Start Date End Date Manuel Ferris MD [address] [facility] [place] [address] PCP - General Family Medicine 02/27/22 Manuel Ferris MD [address] [facility] [place] [address] Referring Family Medicine 02/12/22 Javascript Developer Relationship Specialty Start Date End Date Manuel Ferris MD [address] [facility] [place] [address] PCP - General Family Medicine 02/27/22 Manuel Ferris MD [address] [facility] [place] [address] Referring Family Medicine 02/12/22 Javascript Developer Relationship Specialty Start Date End Date Manuel Ferris MD [address] [facility] [place] [address] PCP - General Family Medicine 02/27/22 Manuel Ferris MD [address] [facility] [place] [address] Referring Family Medicine 02/12/22 Javascript Developer Relationship Specialty Start Date End Date Manuel Ferris MD [address] [facility] [place] [address] PCP - General Family Medicine 02/27/22 Manuel Ferris MD [address] [facility] [place] [address] Referring Family Medicine 02/12/22 Javascript Developer Relationship Specialty Start Date End Date Manuel Ferris MD [address] [facility] [place] [address] PCP - General Family Medicine 02/27/22 Manuel Ferris MD [address] [facility] [place] [address] Referring Family Medicine 02/12/22 Javascript Developer Relationship Specialty Start Date End Date Manuel Ferris MD [address] [facility] [place] [address] PCP - General Family Medicine 02/27/22 Manuel Ferris MD [address] [facility] [place] [address] Referring Family Medicine 02/12/22 Javascript Developer Relationship Specialty Start Date End Date Manuel Ferris MD [address] [facility] [place] [address] PCP - General Family Medicine 02/27/22 Manuel Ferris MD [address] [facility] [place] [address] Referring Family Medicine 02/12/22 Javascript Developer Relationship Specialty Start Date End Date Manuel Ferris MD [address] [facility] [place] [address] PCP - General Family Medicine 02/27/22 Manuel Ferris MD [address] [facility] [place] [address] Referring Family Medicine 02/12/22 Javascript Developer Relationship Specialty Start Date End Date Manuel Ferris MD [address] [facility] [place] [address] PCP - General Family Medicine 02/27/22 Manuel Ferris MD [address] [facility] [place] [address] Referring Family Medicine 02/12/22 Javascript Developer Relationship Specialty Start Date End Date Manuel Ferris MD [address] [facility] [place] [address] PCP - General Family Medicine 02/27/22 Manuel Ferris MD [address] [facility] [place] [address] Referring Family Medicine 02/12/22 Javascript Developer Relationship Specialty Start Date End Date Manuel Ferris MD [address] [facility] [place] [address] PCP - General Family Medicine 02/27/22 Manuel Ferris MD [address] [facility] [place] [address] Referring Family Medicine 02/12/22 Javascript Developer Relationship Specialty Start Date End Date Manuel Ferris MD [address] [facility] [place] [address] PCP - General Family Medicine 02/27/22 Manuel Ferris MD [address] [facility] [place] [address] Referring Family Medicine 02/12/22 Javascript Developer Relationship Specialty Start Date End Date Manuel Ferris MD [address] [facility] [place] [address] PCP - General Family Medicine 02/27/22 Manuel Ferris MD [address] [facility] [place] [address] Referring Family Medicine 02/12/22 Javascript Developer Relationship Specialty Start Date End Date Manuel Ferris MD [address] [facility] [place] [address] PCP - General Family Medicine 02/27/22 Manuel Ferris MD [address] [facility] [place] [address] Referring Family Medicine 02/12/22 Javascript Developer Relationship Specialty Start Date End Date Manuel Ferris MD [address] [facility] [place] [address] PCP - General Family Medicine 02/27/22 Manuel Ferris MD [address] [facility] [place] [address] Referring Family Medicine 02/12/22 Javascript Developer Relationship Specialty Start Date End Date Manuel Ferris MD [address] [facility] [place] [address] PCP - General Family Medicine 02/27/22 Manuel Ferris MD [address] [facility] [place] [address] Referring Family Medicine 02/12/22 Javascript Developer Relationship Specialty Start Date End Date Manuel Ferris MD [address] [facility] [place] [address] PCP - General Family Medicine 02/27/22 Manuel Ferris MD [address] [facility] [place] [address] Referring Family Medicine 02/12/22 Javascript Developer Relationship Specialty Start Date End Date Manuel Ferris MD PCP - General Family Medicine 02/27/22 Manuel Ferris MD Referring Family Medicine 02/12/22 Javascript Developer Relationship Specialty Start Date End Date Manuel Ferris MD PCP - General Family Medicine 02/27/22 Manuel Ferris MD Referring Family Medicine 02/12/22 Javascript Developer Relationship Specialty Start Date End Date Manuel Ferris MD PCP - General Family Medicine 02/27/22 Manuel Ferris MD Referring Family Medicine 02/12/22 Javascript Developer Relationship Specialty Start Date End Date Manuel Ferris MD PCP - General Family Medicine 02/27/22 Manuel Ferris MD Referring Family Medicine 02/12/22 Javascript Developer Relationship Specialty Start Date End Date Manuel Ferris MD PCP - General Family Medicine 02/27/22 Manuel Ferris MD Referring Family Medicine 02/12/22 Javascript Developer Relationship Specialty Start Date End Date Manuel Ferris MD PCP - General Family Medicine 02/27/22 Manuel Ferris MD Referring Family Medicine 02/12/22 Javascript Developer Relationship Specialty Start Date End Date Manuel Ferris MD PCP - General Family Medicine 02/27/22 Manuel Ferris MD Referring Family Medicine 02/12/22 Javascript Developer Relationship Specialty Start Date End Date Manuel Ferris MD PCP - General Family Medicine 02/27/22 Manuel Ferris MD Referring Family Medicine 02/12/22 Javascript Developer Relationship Specialty Start Date End Date Manuel Ferris MD PCP - General Family Medicine 02/27/22 Manuel Ferris MD Referring Family Medicine 02/12/22 Javascript Developer Relationship Specialty Start Date End Date Manuel Ferris MD PCP - General Family Medicine 02/27/22 Manuel Ferris MD Referring Family Medicine 02/12/22 Javascript Developer Relationship Specialty Start Date End Date Manuel Ferris MD PCP - General Family Medicine 02/27/22 Manuel Ferris MD Referring Family Medicine 02/12/22 Javascript Developer Relationship Specialty Start Date End Date Manuel Ferris MD PCP - General Family Medicine 02/27/22 Manuel Ferris MD Referring Family Medicine 02/12/22 Javascript Developer Relationship Specialty Start Date End Date Manuel Ferris MD PCP - General Family Medicine 02/27/22 Manuel Ferris MD Referring Family Medicine 02/12/22 Javascript Developer Relationship Specialty Start Date End Date Manuel Ferris MD PCP - General Family Medicine 02/27/22 Manuel Ferrsi MD Referring Family Medicine 02/12/22 Javascript Developer Relationship Specialty Start Date End Date Manuel Ferris MD PCP - General Family Medicine 02/27/22 Manuel Ferris MD Referring Family Medicine 02/12/22 Javascript Developer Relationship Specialty Start Date End Date Manuel Ferris MD PCP - General Family Medicine 02/27/22 Manuel Ferris MD Referring Family Medicine 02/12/22 Javascript Developer Relationship Specialty Start Date End Date Manuel Ferris MD PCP - General Family Medicine 02/27/22 Manuel Ferris MD Referring Family Medicine 02/12/22 Javascript Developer Relationship Specialty Start Date End Date Manuel Ferris MD PCP - General Family Medicine 02/27/22 Manuel Ferris MD Referring Family Medicine 02/12/22 Javascript Developer Relationship Specialty Start Date End Date Manuel Ferris MD PCP - General Family Medicine 02/27/22 Manuel Ferris MD Referring Family Medicine 02/12/22 Javascript Developer Relationship Specialty Start Date End Date Manuel Ferris MD PCP - General Family Medicine 02/27/22 Manuel Ferris MD Referring Family Medicine 02/12/22 Javascript Developer Relationship Specialty Start Date End Date Manuel Ferris MD PCP - General Family Medicine 02/27/22 Manuel Ferris MD Referring Family Medicine 02/12/22 Javascript Developer Relationship Specialty Start Date End Date Manuel Ferris MD PCP - General Family Medicine 02/27/22 Manuel Ferris MD Referring Family Medicine 02/12/22 Javascript Developer Relationship Specialty Start Date End Date Manuel Ferris MD PCP - General Family Medicine 02/27/22 Manuel Ferris MD Referring Family Medicine 02/12/22 Javascript Developer Relationship Specialty Start Date End Date Manuel Ferris MD PCP - General Family Medicine 02/27/22 Manuel Ferris MD Referring Family Medicine 02/12/22 Javascript Developer Relationship Specialty Start Date End Date Manuel Ferris MD PCP - General Family Medicine 02/27/22 Manuel Ferris MD Referring Family Medicine 02/12/22 Javascript Developer Relationship Specialty Start Date End Date Manuel Ferris MD PCP - General Family Medicine 02/27/22 Manuel Ferris MD Referring Family Medicine 02/12/22 Javascript Developer Relationship Specialty Start Date End Date Charles NicoleDO [address] [place] [id number] PCP - General 10/22/18 Michelle Jasmine, [employer] DEVELOPER[employer] SERVICE ASSOCIATE [address] [address] Nurse Practitioner Cardiology 06/08/23 Javascript Developer Relationship Specialty Start Date End Date Gay Enciso, [employer] DEVELOPER[employer] SERVICE ASSOCIATE [address] [place] [address] PCP - General 07/13/23 Michelle Jasmine, [employer] DEVELOPER[employer]OM SERVICE ASSOCIATE [address] [facility] [address] [place] [address] Nurse Practitioner Cardiology 06/08/23 Aurora Patel MD [address] [place] [address] [address] [id number] Consulting Physician Cardiology 06/23/23 Javascript Developer Relationship Specialty Start Date End Date Manuel Ferris MD PCP - General Family Medicine 02/27/22 Manuel Ferris MD Referring Family Medicine 02/12/22 Javascript Developer Relationship Specialty Start Date End Date Manuel Ferris MD PCP - General Family Medicine 02/27/22 Manuel Ferris MD Referring Family Medicine 02/12/22 Team Status: Active Member Role Status Mark Salomon MD Primary Care Provider Active Start: July 28, 2023 Virgil Green MD Attending Provider Active S tart: July 28, 2023 Javascript Developer Relationship Specialty Start Date End Date Manuel Ferris MD PCP - General Family Medicine 02/27/22 Manuel Ferris MD Referring Family Medicine 02/12/22 Team Status: Inactive Member Role Status Mark Salomon MD Primary Care Provider Active Start: December 16, 2023 End: December 16, 2023 Mirela Kelsey MD Attending Provider Active Sta rt: December 16, 2023 End: December 16, 2023 Javascript Developer Relationship Specialty Start Date End Date Manuel Ferris MD PCP - General Family Medicine 02/27/22 Manuel Ferris MD Referring Family Medicine 02/12/22 Javascript Developer Relationship Specialty Start Date End Date Manuel Ferris MD PCP - General Family Medicine 02/27/22 Manuel Ferris MD Referring Family Medicine 02/12/22 Javascript Developer Relationship Specialty Start Date End Date Manuel Ferris MD PCP - General Family Medicine 02/27/22 Manuel Ferris MD Referring Family Medicine 02/12/22 Javascript Developer Relationship Specialty Start Date End Date [...] 2024 End: January 28, 2024 Team Status: Inactive Member Role Status [...] February 28, 2024 End: February 28, 2024 Javascript Developer Relationship Specialty Start Date End Date Charles Nicole MD [address] [place] [address] PCP - General Family Medicine 02/09/24 Team Status: Inactive Member Role Status Dates WALESKA Galloway Primary Care Provider Active Start: March 16, 2024 End: March 16, 2024 Bandar Portillo APRN Attending Provider Active Start: March 16, 2024 End: March 16, 2024 Javascript Developer Relationship Specialty Start Date End Date Charles Nicole MD [address] [place] [address] PCP - General Family Medicine 02/09/24 Javascript Developer Relationship Specialty Start Date End Date Charles Nicole MD [address] [place] [address] PCP - General Family Medicine 02/09/24 Javascript Developer Relationship Specialty Start Date End Date Charles Nicole MD [address] [place] [address] PCP - General Family Medicine 02/09/24 Javascript Developer Relationship Specialty Start Date End Date Charles Nicole MD [address] [place] [facility] [place] [address] PCP - General Family Medicine 02/09/24 Javascript Developer Relationship Specialty Start Date End Date Charles Nicole MD [address] [place] [address] PCP - General Family Medicine 02/09/24 Javascript Developer Relationship Specialty Start Date End Date Manuel Ferris MD PCP - General Family Medicine 02/27/22 Manuel Ferris MD Referring Family Medicine 02/12/22 Javascript Developer Relationship Specialty Start Date End Date Charles Nicole MD [address] [place] [address] PCP - General Family Medicine 02/09/24 Javascript Developer Relationship Specialty Start Date End Date Charles Nicole MD [address] [place] [address] PCP - General Family Medicine 02/09/24 Javascript Developer Relationship Specialty Start Date End Date Charles Nicole MD [address] [place] [address] PCP - General Family Medicine 02/09/24 Javascript Developer Relationship Specialty Start Date End Date Charles Nicole MD [address] [place] [address] PCP - General Family Medicine 02/09/24 Javascript Developer Relationship Specialty Start Date End Date Manuel Ferris MD PCP - General Family Medicine 02/27/22 Manuel Ferris MD Referring Family Medicine 02/12/22 Javascript Developer Relationship Specialty Start Date End Date Charles Nicole MD [address] [place] [address] PCP - General Family Medicine 02/09/24 Javascript Developer Relationship Specialty Start Date End Date Manuel Ferris MD PCP - General Family Medicine 02/27/22 Manuel Ferris MD Referring Family Medicine 02/12/22 Javascript Developer Relationship Specialty Start Date End Date Manuel Ferris MD PCP - General Family Medicine 02/27/22 Manuel Ferris MD Referring Family Medicine 02/12/22 Javascript Developer Relationship Specialty Start Date End Date Charles Nicole MD [address] [place] [address] PCP - General Family Medicine 02/09/24 Javascript Developer Relationship Specialty Start Date End Date Manuel Ferris MD PCP - General Family Medicine 02/27/22 Manuel Ferris MD Referring Family Medicine 02/12/22 Manuel Ferris MD [address] [place] [address] Referring Family Medicine 07/06/24 Team Status: Inactive Member Role Status Dates Gay Enciso , CARISSA-C Primary Care Provider Active Start: July 10, 2024 End: July 10, 2024 Adolfo Kang MD Attending Provider Active Sta rt: July 10, 2024 End: July 10, 2024 Javascript Developer Relationship Specialty Start Date End Date Manuel Ferris MD PCP - General Family Medicine 02/27/22 Manuel Ferris MD Referring Family Medicine 02/12/22 Manuel Ferris MD [address] [place] [address] Referring Family Medicine 07/06/24 Javascript Developer Relationship Specialty Start Date End Date Manuel Ferris MD PCP - General Family Medicine 02/27/22 Manuel Ferris MD Referring Family Medicine 02/12/22 Manuel Ferris MD [address] [place] [id number] Referring Family Medicine 07/06/24 Team Status: Inactive Member Role Status Dates Gay Enciso NP-C Primary Care Provider Active Start: July 19, 2024 End: July 19, 2024 Adolfo Kang MD Attending Provider Active Sta rt: July 19, 2024 End: July 19, 2024 Javascript Developer Relationship Specialty Start Date End Date Gay Enciso MD [address] [place] [phone] Referring Physician Family Medicine 07/18/24 Javascript Developer Relationship Specialty Start Date End Date Manuel Ferris MD PCP - General Family Medicine 02/27/22 Manuel Ferris MD Referring Family Medicine 02/12/22 Manuel Ferris MD [address] [place] [address] Referring Family Medicine 07/06/24 Javascript Developer Relationship Specialty Start Date End Date Gay Enciso MD [address] [place] [address] Referring Physician Family Medicine 07/18/24 Javascript Developer Relationship Specialty Start Date End Date Gay Enciso [employer] DEVELOPER[employer] SERVICE ASSOCIATE [address] [place] [address] PCP - General 07/13/23 Michelle Jasmine [employer]ELOPER[employer] SERVICE ASSOCIATE Nurse Practitioner Cardiology 06/08/23 Aurora Patel MD [...] July 31, 2024 End: July 31, 2024 Javascript Developer Relationship Specialty Start Date End Date Manuel Ferris MD PCP - General Family Medicine 02/27/22 Manuel Ferris MD Referring Family Medicine 02/12/22 [place] [address] [place] [address] Referring Family Medicine 07/06/24 Javascript Developer Relationship Specialty Start Date End Date Manuel Ferris MD PCP - General Family Medicine 02/27/22 Manuel Ferris MD Referring Family Medicine 02/12/22 Manuel Ferris MD [address] [place] [address] Referring Family Medicine 07/06/24 Javascript Developer Relationship Specialty Start Date End Date Manuel Ferris MD PCP - General Family Medicine 02/27/22 Manuel Ferris MD Referring Family Medicine 02/12/22 Manuel Ferris MD [address] [place] [address] Referring Family Medicine 07/06/24 Team Status: Inactive Member Role Status Dates Gay Enciso NP-C Primary Care Provider Active Start: August 22, 2024 End: August 22, 2024 Adolfo Kang MD Attending Provider Active Sta rt: August 22, 2024 End: August 22, 2024 Javascript Developer Relationship Specialty Start Date End Date Gay Enciso MD [address] [place] [address] Referring Physician Family Medicine 07/18/24 Javascript Developer Relationship Specialty Start Date End Date Manuel Ferris MD PCP - General Family Medicine 02/27/22 Manuel Ferris MD Referring Family Medicine 02/12/22 Manuel Ferris MD [address] [place] [address] Referring Family Medicine 07/06/24 Javascript Developer Relationship Specialty Start Date End Date Manuel Ferris MD PCP - General Family Medicine 02/27/22 Manuel Ferris MD Referring Family Medicine 02/12/22 Manuel Ferris MD [address] [place] [id number] Referring Family Medicine 07/06/24 Javascript Developer Relationship Specialty Start Date End Date Gay Enciso MD [address] [place] [phone] Referring Physician Family Medicine 07/18/24 Javascript Developer Relationship Specialty Start Date End Date Gay Enciso MD [address] [place] [phone] Referring Physician Family Medicine 07/18/24 Javascript Developer Relationship Specialty Start Date End Date Manuel Ferris MD PCP - General Family Medicine 02/27/22 Manuel Ferris MD Referring Family Medicine 02/12/22 Manuel Ferris MD [address] [place] [address] Referring Family Medicine 07/06/24 Javascript Developer Relationship Specialty Start Date End Date Manuel Ferris MD PCP - General Family Medicine 02/27/22 Manuel Ferris MD Referring Family Medicine 02/12/22 Manuel Ferris MD [address] [place] [address] Referring Family Medicine 07/06/24 Javascript Developer Relationship Specialty Start Date End Date Manuel Ferris MD PCP - General Family Medicine 02/27/22 Manuel Ferris MD Referring Family Medicine 02/12/22 Manuel Ferris MD [address] [place] [id number] Referring Family Medicine 07/06/24 Javascript Developer Relationship Specialty Start Date End Date Manuel Ferris MD PCP - General Family Medicine 02/27/22 Manuel Ferris MD Referring Family Medicine 02/12/22 Manuel Ferris MD [address] [place] [address] Referring Family Medicine 07/06/24 Javascript Developer Relationship Specialty Start Date End Date Manuel Ferris MD PCP - General Family Medicine 02/27/22 Manuel Ferris MD Referring Family Medicine 02/12/22 Manuel Ferris MD [address] [place] [address] Referring Family Medicine 07/06/24 Javascript Developer Relationship Specialty Start Date End Date Manuel Ferris MD PCP - General Family Medicine 02/27/22 Manuel Ferris MD Referring Family Medicine 02/12/22 Manuel Ferris MD [address] [place] [address] Referring Family Medicine 07/06/24 Javascript Developer Relationship Specialty Start Date End Date Manuel Ferris MD PCP - General Family Medicine 02/27/22 Manuel Ferris MD Referring Family Medicine 02/12/22 Manuel Ferris MD [address] [place] [address] Referring Family Medicine 07/06/24 Javascript Developer Relationship Specialty Start Date End Date Manuel Ferris MD PCP - General Family Medicine 02/27/22 Manuel Ferris MD Referring Family Medicine 02/12/22 Manuel Ferris MD [address] [place] [address] Referring Family Medicine 07/06/24 Javascript Developer Relationship Specialty Start Date End Date Manuel Ferris MD PCP - General Family Medicine 02/27/22 Manuel Ferris MD Referring Family Medicine 02/12/22 Manuel Ferris MD [address] [place] [address] Referring Family Medicine 07/06/24 Javascript Developer Relationship Specialty Start Date End Date Manuel Ferris MD PCP - General Family Medicine 02/27/22 Manuel Ferris MD Referring Family Medicine 02/12/22 Manuel Ferris MD [address] [place] [address] Referring Family Medicine 07/06/24 Javascript Developer Relationship Specialty Start Date End Date Manuel Ferris MD PCP - General Family Medicine 02/27/22 Manuel Ferris MD Referring Family Medicine 02/12/22 Manuel Ferris MD [address] [place] [address] Referring Family Medicine 07/06/24 Javascript Developer Relationship Specialty Start Date End Date Manuel Ferris MD PCP - General Family Medicine 02/27/22 Manuel Ferris MD Referring Family Medicine 02/12/22 Manuel Ferris MD [address] [place] [address] Referring Family Medicine 07/06/24 Javascript Developer Relationship Specialty Start Date End Date Manuel Ferris MD PCP - General Family Medicine 02/27/22 Manuel Ferris MD Referring Family Medicine 02/12/22 Manuel Ferris MD [address] [place] [address] Referring Family Medicine 07/06/24 Team Status: Inactive Member Role Status Dates Gay Enciso NP-C Primary Care Provider Active Start: September 06, 2024 End: September 06, 2024 Adolfo Kang MD Attending Provider Active Sta rt: September 06, 2024 End: September 06, 2024 Team Status: Inactive Member Role Status Dates WALESKA Galloway Primary Care Provider Active Start: November 13, 2024 End: November 13, 2024 Adolfo Kang MD Attending Provider Active Sta rt: November 13, 2024 End: November 13, 2024 Javascript Developer Relationship Specialty [place] [address] [place] [address] Referring Physician Family Medicine 07/18/24 Javascript Developer Relationship Specialty Start Date End Date Manuel Ferris MD PCP - General Family Medicine 02/27/22 Manuel Ferris MD Referring Family Medicine 02/12/22 Manuel Ferris MD [address] [place] [address] Referring Family Medicine 07/06/24 Javascript Developer Relationship Specialty Start Date End Date Manuel Ferris MD PCP - General Family Medicine 02/27/22 Manuel Ferris MD Referring Family Medicine 02/12/22 Manuel Ferris MD [address] [place] [address] Referring Family Medicine 07/06/24 Javascript Developer Relationship Specialty Start Date End Date Manuel Ferris MD PCP - General Family Medicine 02/27/22 Manuel Ferris MD Referring Family Medicine 02/12/22 Manuel Ferris MD [address] [place] [id number] Referring Family Medicine 07/06/24 Team Status: Inactive Member Role Status Dates Gay Enciso NP-C Primary Care Provider Active Start: January 31, 2025 End: January 31, 2025 Adolfo Kang MD Attending Provider Active Sta rt: January 31, 2025 End: January 31, 2025 Javascript Developer Relationship Specialty Start Date End Date Gay Enciso MD [address] [place] [address] Referring Physician Family Medicine 07/18/24 Javascript Developer Relationship Specialty Start Date End Date Gay Enciso MD [address] [place], [place] [id number] Referring Physician Family Medicine 07/18/24 Inactive Administered Medications - up to 3 [...] BE BASED ON THE PRIMARY CLINICAL RECORDS. [employer] provides no warranty or guarantee of the accuracy or completeness of information in this document.
[2025-02-24 12:33] LABS: Alanine Aminotransferase 73 U/L (14-59); Albumin Globulin Ratio 0.7; Albumin Level 3.1 g/dL (3.4-5.0); Alkaline Phosphatase 80 U/L (46-116); Anion Gap 16.1; Aspartate Amino Transferase 27 U/L (15-37); Blood Urea Nitrogen 15.0 mg/dL (7.0-18.0); Calcium 8.8 mg/dL (8.5-10.1); Carbon Dioxide 22.7 mmol/L (21.0-32.0); Chloride 102 mmol/L (98-107); Estimated GFR (African America >60 (>=60 mL/min/1.73m^2); Estimated GFR (Non-African Ame >60 (>=60 mL/min/1.73m^2); Globulin 4.5 g/dL; Glucose 219 mg/dL (74-106); Potassium 3.8 mmol/L (3.5-5.1); Sodium 137 mmol/L (136-145); Total Protein 7.6 g/dL (6.4-8.2)
== END 2025-02-24 11:46 | disposition home or self-care (01) ==
LOC: LAB 11:45
PROVIDERS: PCP Nurse Practitioner Family; Visit Provider Nurse Practitioner Family
DX: R73.03 Prediabetes (principal); Z79.899 Other long term (current) drug therapy
CPT/HCPCS: 36415; 80053; 83036

== ENCOUNTER 2025-02-24 23:46 | Emergency (ER) | payer OTHER, SELFPAY ==
--- OUTSIDE RECORDS SUMMARY | 2025-02-14 15:20 | XMS_ITS | Encounter Summary ---
Author Organization [facility] Healthcare Address [address] [place] [address] Care Team Providers Care Biomedical Engineering Aide Name Role Phone Gay De La Torre MD Unavailable [phone] Reason for Referral * Consultation (Routine) - Authorized Specialty Diagnoses / Procedures Referred By Nahid tran Referred To Contact General Surgery Diagnoses Pilonidal cyst Procedures [place] OFFICE/OUTPATIENT [facility] 60 MINUTES Cynthia English MD [address] [facility] [address] [place] [address] Phone: tel: fax: Terence Blum MD 703 [facility] 150 [place] [address] Phone: tel: fax: Referral ID Status Reason Start Date Expiration Date Visits Requested Visits Authorized [id number] Authorized Specialty Services Required 02/14/2025 08/13/2025 1 1 Reason for Visit * Reason Comments Follow-up Suspicious Skin Lesion Encounter Details Date Type Department Care Team (Late st Contact Info) Description 02/14/2025 3:20 PM EDT [facility] [address] [facility] 350 [place] [phone] Cynthia English MD [address] [facility] [address] [place] [address] Pilonidal cyst (Primary Dx); Hidradenitis [...] AM EDT Consult [facility] 7[address] [facility] 150 [place] [phone] Terence Blum MD 703 [facility] 150 [place] [address] 03/19/2025 10:20 AM EDT Office Visit [facility] [address] [place] [address] Mary Grace Mejias MD 112 [facility] [address] [place] [address] 07/25/2025 11:00 AM EST Office Visit [facility] [address] [place] [address] Cynthia English MD [address] [place] [address] Scheduled Referrals Name Type Priority [...] Other documented in this encounter Care Teams Biomedical Engineering Aide Relationship Specialty Start Date End Date Gay De La Torre MD [address] [place] [address] Referring Physician Family Medicine 07/18/24 documented as of this encounter
--- OUTSIDE RECORDS SUMMARY | 2025-02-21 09:00 | XMS_ITS | Encounter Summary ---
Author Organization [facility] Address [address] [place] [address] Care Team Providers Care Supply Coordinator Name Role Phone Manuel Klein MD Unavailable [phone] Manuel Klein MD Primary Care Provider +-4 Manuel Klein MD Unavailable [phone] Source Comments In the event this information is protected by the Federal Confidentiality of Alcohol and Drug AbusePatient Records regulations: The Federal rules restrict any use of the information to criminally investigate or prosecute any alcohol or drug abuse patient.[facility] Reason for Visit * Reason Comments Hypogammaglobulinemia Treatment visit Encounter Details Date Type Department Care Team (Latest Contact Info) Description 02/21/2025 9:00 AM EDT Visit (SP) Office Hematology/Oncology [address] [facility] [place] [address] Fara Lopez APRN.SENIOR J2EE DEVELOPER [address] [facility] [place] [address] Frequent infections (Primary Dx); Hypogammaglobulinemi a [...] is lower risk 4 09/24/2022 Data from: https://www.neighborhoodatlas.medicine.[facility]/. Last address used for calculation [address] 09/24/2022 Comments No Sex and Gender [...] this encounter Progress Notes * Fara Lopez APRN.SENIOR J2EE DEVELOPER - 02/21/2025 9:00 AM EDT Images from the original note were not included. NAME: Ariadna Paniagua CLINIC NO.: [id number] DATE OF SERVICE: February 21, 2025 (John) [...] 1 on her buttocks. She saw a chip bin conveyor tender who treated one with a steroid injection. [...] requiring a recent corticosteroid injection by her chip bin conveyor tender. She experiences intermittent fatigue, shortness of breath, [...] lower lip done 2 days ago at [facility] - awaiting results. B12 helps especially [...] injections. Shefollows with multiple doctors including and paper sheeter, cognos architect, chip bin conveyor tender and PCP. She has been told they [...] one time a week. Per PCP^Disp: ^Rfl: trbdcoyofcSOCCS-cvufyb-asjnetowe (BMX 1:1:1) 1:1:1 liqd^Take 5 mL by [...] which included preparing to see the patient, sevi-ml-oxqu patient care, completing clinical documentation, obtaining and/or reviewing separately obtained history, performing a medically appropriate examination, counseling and educating the pat ient/family/caregiver, ordering medications, tests, or procedures, communicating with other HCPs (not separately reported), and independently interpreting results (not separately reported) . Fara Lopez APRN, APPLICATION INFRASTRUCTURE ENGINEER-C, OCN Hematology and Oncology Services Provided at: [place], [place] CC: Manuel Klein MD [address] [facility] [address] documented in this encounter Plan of Treatment Upcoming Encounters Date Type Department Care Team (Latest Contact Info) Description 03/08/2025 2:00 PM EDT Infusion Center Hematology/Oncology [address] [facility] [place] [address] BENLYSTA - 03/21/2025 9:00 AM EDT Office Visit [facility] [address] [place] [address] 4 week follow up IVIG - pt to see MASON for this appt per Fara 03/21/2025 9:20 AM EDT Visit (SP) Office Hematology/Oncology [address] [facility] [place] [address] Jose Cho MD [address] [facility] [place] [address] 4 week follow up IVIG - pt to see MASON for this appt per Fara 03/21/2025 9:40 AM EDT Infusion Center Hematology/Oncology [address] [place] [address] Gabbi, Chair 4 [address] [place] [address] 4 week follow up IVIG - pt to see MASON for this appt per Fara 04/05/2025 2:00 PM EST Infusion Center Hematology/Oncology [address] [place] [address] BENLYSTA - 05/03/2025 2:00 PM [facility] Infusion Center Hematology/Oncology [facility] [place] [address] BENLYSTA - documented as of this encounter Visit Diagnoses Diagnosis Frequent infections- Primary Hypogammaglobulinemia (HCC) Hypogammaglobulinaemia, unspecified Bilateral leg weakness Other musculoskeletal symptoms referable to limbs Discoid lupus erythematosus Lupus erythematosus Vitamin B12 deficiency Other B-complex deficiencies Shortness of breath Other iron deficiency anemia Malaise and fatigue Other malaise and fatigue documented in this encounter Care Teams Supply Coordinator Relationship Specialty Start Date End Date Manuel Klein MD PCP - General Family Medicine 02/27/22 Manuel Klein MD Referring Family Medicine 02/12/22 Manuel Klein MD [address] [place] [address] Referring Family Medicine 07/06/24 documented as of this encounter
--- OUTSIDE RECORDS SUMMARY | 2025-02-21 09:30 | XMS_ITS | Encounter Summary ---
Author Organization [facility] Address [address] [place] [address] Care Team Providers Care Picker Tender Name Role Phone Manuel Klein MD Unavailable [phone] Manuel Klein MD Primary Care Provider +-4 Manuel Klein MD Unavailable [phone] Source Comments In the event this information is protected by the Federal Confidentiality of Alcohol and Drug AbusePatient Records regulations: The Federal rules restrict any use of the information to criminally investigate or prosecute any alcohol or drug abuse patient.[facility] Reason for Visit * [place] Prior Authorization (Routine) - Authorized Specialty Diagnoses / Procedures Referred By Contac t Referred To Contact Diagnoses Frequent infections Hypogammaglobulinemia (HCC) Bilateral leg weakness Discoid lupus erythematosus Procedures GAMMAGARD LIQUID INJECTION IMMUNE GLOBULIN INJECTION Jose Cho MD [address] [place] [address] [place] [address] Phone: tel: fax: Hematology/Oncology [address] [place] [address] [place] [address] Phone: tel: fax: Referral ID Status Reason Start Date Expiration Date Visits Requested Visits Authorized [id number] Authorized Patient Cleared - Admin/Chairm an/Director advise to proceed or did not respond 10/30/2024 10/30/2025 19 19 Encounter Details Date Type Department Care Team (Latest Contact Info) Description 02/21/2025 9:30 AM EDT Infusion Center Hematology/Oncology [address] [place] [address] [place] [address] Frequent infections (Primary Dx); Hypogammaglobulinemia (HCC); Bilateral [...] lower risk 4 09/24/2022 Data from: https://www.neighborhoodatlas.medicine.[facility].edu/. Last address used for calculation [address] [place] [address] 09/24/2022 Comments No Sex and Gender Information [...] 02/21/2025 11:59 AM EDT Gamunex-C: Lot # [id number] EXP 05/02/27 = 20 G LOT# [id number] EXP 09/04/27 = 10 G LOT# [id number] EXP 06/19/27 = 5 G documented in this encounter Plan of Treatment Upcoming Encounters Date Type Department Care Team (Latest Contact Info) Description 03/08/2025 2:00 PM EDT [facility] Center Hematology/Oncology [address] [facility] [place] [address] BENLYSTA - 03/21/2025 9:00 AM EDT Office Visit [facility] Laboratory [address] [facility] [place] [address] 4 week follow up IVIG - pt to see MASON for this appt per Fara 03/21/2025 9:20 AM EDT Visit (SP) Office Hematology/Oncology [address] [place] [address] Jose Cho MD [address] [place] [address] 4 week follow up IVIG - pt to see MASON for this appt per Fara 03/21/2025 9:40 AM EDT Infusion Center Hematology/Oncology [address] [facility] [address] Gabbi, Chair 4 [address] [facility] [address] 4 week follow up IVIG - pt to see MASON for this appt per Fara 04/05/2025 2:00 PM [email or web address] Infusion Center Hematology/Oncology [address] [facility] [address] BENLYSTA - 05/03/2025 2:00 PM [facility] [[email or web address] Infusion Center Hematology/Oncology [address] [facility] [address] BENLYSTA - documented as of this encounter [...] mL/hr documented in this encounter Care Teams Picker Tender Relationship Specialty Start Date End Date Manuel Klein MD PCP - General Family Medicine 02/27/22 Manuel Klein MD Referring Family Medicine 02/12/22 Manuel Klein MD [address] [place] [address] Referring Family Medicine 07/06/24 documented as of this encounter
[2025-02-24 23:53] VITALS: BP 142/84; PULSE 88; TEMP 37.1; O2SAT 97; BMI 43.9
--- OUTSIDE RECORDS SUMMARY | 2025-02-24 23:53 | XMS_ITS | Encounter Summary ---
Author Organization [facility] Address [address] [place] [address] Care Team Providers Care Quarry Supervisor Open Pit Name Role Phone Britt Gay(Historical) CREATIVE LEAD.SPECIAL MACHINE OPERATOR Primary Care Provider Unavailable Manuel Klein MD Unavailable [phone] Manuel Klein MD Primary Care Provider +-4 Manuel Klein MD Unavailable [phone] Source Comments In the event this information is protected by the Federal Confidentiality of Alcohol and Drug AbusePatient Records regulations: The Federal rules restrict any use of the information to criminally investigate or prosecute any alcohol or drug abuse patient.[facility] Encounter Details Date Type Department Care Team (Late st Contact Info) Description 05/04/2021 Get Medical Advice Rheumatology [address] [facility] [address] [place], [place] [phone] Sandra Park MD [address] [place], [place] [id number] Lupus diagnosis from dermatology Social History Tobacco [...] N ot on file 08/09/2020 Data from: https://www.neighborhoodatlas.medicine.[facility]/. Last address used for calculation [...] 2:00 PM EDT Infusion Center Hematology/Oncology [address] [place] [address] BENLYSTA - 03/21/2025 9:00 AM EDT Office Visit [facility] Laboratory [address] [place] [address] 4 week follow up IVIG - pt to see MASON for this appt per Fara 03/21/2025 9:20 AM EDT Visit (SP) Office Hematology/Oncology [address] [place] [address] Jose Cho MD [address] [place] [address] 4 week follow up IVIG - pt to see MASON for this appt per Fara 03/21/2025 9:40 AM EDT Infusion Center Hematology/Oncology [address] [place] [address] Gabbi, Chair [address] [place] [address] 4 week follow up IVIG - pt to see MASON for this appt per Fara 04/05/2025 2:00 PM EST Infusion Center Hematology/Oncology [address] [place] [address] BENLYSTA - 05/03/2025 2:00 PM EST Infusion Center Hematology/Oncology [address] [place] [address] BENLYSTA - documented as of this encounter Visit Diagnoses Diagnosis CHRISTIAN positive- Primary Other and unspecified nonspecific immunological findings Other systemic lupus erythematosus with other organ involvement (HCC) documented in this encounter Care Teams Quarry Supervisor Open Pit Relationship Specialty Start Date End Date Gay De La Torre(Historical), CREATIVE LEAD.SPECIAL MACHINE OPERATOR PCP - General Family Medicine 10/24/21 02/26/22 Manuel Klein MD PCP - General Family Medicine 02/27/22 Manuel Klein MD Referring Family Medicine 02/12/22 Manuel Klein MD [address] [place] [address] Referring Family Medicine 07/06/24 documented as of this encounter
--- OUTSIDE RECORDS SUMMARY | 2025-02-24 23:53 | XMS_ITS | Encounter Summary ---
Author Organization [facility] Address [address] [place] [address] Care Team Providers Care Circulation Assistant Name Role Phone Manuel Klein MD Unavailable [phone] Manuel Klein MD Primary Care Provider +-4 Manuel Klein MD Unavailable [phone] Source Comments In the event this information is protected by the Federal Confidentiality of Alcohol and Drug AbusePatient Records regulations: The Federal rules restrict any use of the information to criminally investigate or prosecute any alcohol or drug abuse patient.[facility] Encounter Details Date Type Department Care Team (Latest Contact Info) Description 03/29/2024 Patient Msg [facility] [address] [place] [address] Akiko Cooper MD [address] [place] [address] breath test scheduling Social History Tobacco Use [...] is lower risk 4 09/24/2022 Data from: https://www.neighborhoodatlas.medicine.[facility]/. Last address used for calculation [address] 09/24/2022 Comments No Sex and Gender [...] Contact Info) Description 03/08/2025 2:00 PM EDT [facility] Center Hematology/Oncology [address] [place] [address] BENLYSTA - 03/21/2025 9:00 AM EDT Office Visit [facility] Laboratory [address] [place] [address] 4 week follow up IVIG - pt to see MASON for this appt per [facility] 03/21/2025 9:20 AM EDT Visit (SP) Office Hematology/Oncology [address] [place] [address] Jose Cho MD [address] [place] [address] 4 week follow up IVIG - pt to see MASON for this appt per [facility] 03/21/2025 9:40 AM EDT Infusion Center Hematology/Oncology [address] [place] [address] Gabbi, Chair [address] [place] [address] 4 week follow up IVIG - pt to see MASON for this appt per [facility] 04/05/2025 2:00 PM EST Infusion Center Hematology/Oncology [address] [place] [address] BENLYSTA - 05/03/2025 2:00 PM [facility] Infusion Center Hematology/Oncology [address] [facility] [place] [address] BENLYSTA - documented as of this encounter Visit Diagnoses Not on filedocumented in this encounter Care Teams Circulation Assistant Relationship Specialty Start Date End Date Manuel Klein MD PCP - General Family Medicine 02/27/22 Manuel Klein MD Referring Family Medicine 02/12/22 Manuel Klein MD [address] [place] [address] Referring Family Medicine 07/06/24 documented as of this encounter
--- OUTSIDE RECORDS SUMMARY | 2025-02-24 23:53 | XMS_ITS | Encounter Summary ---
Author Organization [facility] Address [address] [place] [address] Care Team Providers Care Training Developer Name Role Phone Gay De La Torre(Historical) CARPET CUTTER.HIGH SCHOOL FOOTBALL COACH Primary Care Provider Unavailable Manuel Klein MD Unavailable [phone] Manuel Klein MD Primary Care Provider +-4 Manuel Klein MD Unavailable [phone] Source Comments In the event this information is protected by the Federal Confidentiality of Alcohol and Drug AbusePatient Records regulations: The Federal rules restrict any use of the information to criminally investigate or prosecute any alcohol or drug abuse patient.[facility] Encounter Details Date Type Department Care Team (Late st Contact Info) Description 05/05/2021 Get Medical Advice Rheumatology [address] [place], [place] [phone] Sandra Park MD [address] [place], [place] [phone] Steroids Social History Tobacco Use Types Packs/Day [...] N ot on file 08/09/2020 Data from: https://www.neighborhoodatlas.[facility]/. Last address used for calculation Not on [...] 2:00 PM EDT Infusion Center Hematology/Oncology [address] [facility] [place] [address] BENLYSTA - 03/21/2025 9:00 AM EDT Office Visit [facility] Laboratory [address] [place] [address] 4 week follow up IVIG - pt to see MASON for this appt per Fara 03/21/2025 9:20 AM EDT Visit (SP) Office Hematology/Oncology [address] [facility] [place] [address] Jose Cho MD [address] [place] [address] 4 week follow up IVIG - pt to see MASON for this appt per Fara 03/21/2025 9:40 AM EDT Infusion Center Hematology/Oncology [address] [facility] [address] Gabbi, Chair [address] [place] [address] 4 week follow up IVIG - pt to see MASON for this appt per Fara 04/05/2025 2:00 PM EST Infusion Center Hematology/Oncology [address] [facility] [place] [address] BENLYSTA - 05/03/2025 2:00 PM EST Infusion Center Hematology/Oncology [address] [facility] [place] [place] [address] BENLYSTA - documented as of this encounter Visit Diagnoses Diagnosis Other systemic lupus erythematosus with other organ involvement (HCC)- Primary documented in this encounter Care Teams Training Developer Relationship Specialty Start Date End Date Gay De La Torre(Historical), CARPET CUTTER.HIGH SCHOOL FOOTBALL COACH PCP - General Family Medicine 10/24/21 02/26/22 Manuel Klein MD PCP - General Family Medicine 02/27/22 Manuel Klein MD Referring Family Medicine 02/12/22 Manuel Klein MD [address] [place] [address] Referring Family Medicine 07/06/24 documented as of this encounter
--- OUTSIDE RECORDS SUMMARY | 2025-02-24 23:53 | XMS_ITS | Encounter Summary ---
Author Organization [facility] Address [address] [place] [address] Care Team Providers Care High School Library Media Specialist Name Role Phone Gay De La Torre(Historical) DIRECTOR INFORMATION.PATTERN WORKER Primary Care Provider Unavailable Manuel Klein MD Unavailable [phone] Manuel Klein MD Primary Care Provider +-4 Manuel Klein MD Unavailable [phone] Source Comments In the event this information is protected by the Federal Confidentiality of Alcohol and Drug AbusePatient Records regulations: The Federal rules restrict any use of the information to criminally investigate or prosecute any alcohol or drug abuse patient.[facility] Encounter Details Date Type Department Care Team (Late st Contact Info) Description 08/13/2021 Patient Msg Rheumatology [address] [place] [address] Provider, Ccf Please Review Changes [...] N ot on file 08/09/2020 Data from: https://www.neighborhoodatlas.medicine.[facility]/. Last address used for [...] Info) Description 03/08/2025 2:00 PM EDT [facility] Center Hematology/Oncology [address] [facility] [address] BENLYSTA - 03/21/2025 9:00 AM EDT Office Visit [facility] Laboratory [address] [place] [address] 4 week follow up IVIG - pt to see MASON for this appt per [facility] 03/21/2025 9:20 AM EDT Visit (SP) Office Hematology/Oncology [address] [facility] [place] [address] Jose Cho MD [address] [facility] [place] [address] 4 week follow up IVIG - pt to see MASON for this appt per [facility] 03/21/2025 9:40 AM EDT Infusion Center Hematology/Oncology [address] [address] [place] [address] Gabbi, Chair [address] [facility] [place] [address] 4 week follow up IVIG - pt to see MASON for this appt per [facility] 04/05/2025 2:00 PM EST Infusion Center Hematology/Oncology [address] [facility] [place] [address] BENLYSTA - 05/03/2025 2:00 PM [facility] Infusion Center Hematology/Oncology [address] [facility] [place] [address] BENLYSTA - documented as of this encounter Visit Diagnoses Not on filedocumented in this encounter Care Teams High School Library Media Specialist Relationship Specialty Start Date End Date Gay De La Torre(Historical), DIRECTOR INFORMATION.PATTERN WORKER PCP - General Family Medicine 10/24/21 02/26/22 Manuel Klein MD PCP - General Family Medicine 02/27/22 Manuel Klein MD Referring Family Medicine 02/12/22 Manuel Klein MD [facility] [place] [address] Referring Family Medicine 07/06/24 documented as of this encounter
--- OUTSIDE RECORDS SUMMARY | 2025-02-24 23:54 | XMS_ITS | Encounter Summary ---
Author Organization [facility] Address [address] [place] [address] Care Team Providers Care Repairer Hairspring Name Role Phone Britt, Gay(Historical) SPANISHER.AUTO SALVAGE WORKER Primary Care Provider Unavailable Manuel Klein MD Unavailable [phone] Manuel Klein MD Primary Care Provider +-4 Manuel Klein MD Unavailable [phone] Source Comments In the event this information is protected by the Federal Confidentiality of Alcohol and Drug AbusePatient Records regulations: The Federal rules restrict any use of the information to criminally investigate or prosecute any alcohol or drug abuse patient.[facility] Encounter Details Date Type Department Care Team (Late st Contact Info) Description 02/24/2022 Get Medical Advice Infectious Disease [address] [place] [address] Tiffany Head DO [address] [place] [address] Test results Social History Tobacco [...] Data from: https://www.neighborhoodatlas.medicine.[facility]/. Last address used for calculation Not on [...] EDT [facility] Center Hematology/Oncology [address] [place] [address] [place] [address] BENLYSTA - 03/21/2025 9:00 AM EDT Office Visit [facility] Laboratory [address] [place] [address] 4 week follow up IVIG - pt to see MASON for this appt per Fara 03/21/2025 9:20 AM EDT Visit (SP) Office Hematology/Oncology [address] [place] [address] Jose Cho MD [address] [place] [address] 4 week follow up IVIG - pt to see MASON for this appt per [facility] 03/21/2025 9:40 AM EDT Infusion Center Hematology/Oncology [address] [place] [address] Gabbi, Chair [address] [place] [address] 4 week follow up IVIG - pt to see MASON for this appt per [facility] 04/05/2025 2:00 PM EST Infusion Center Hematology/Oncology [address] [place] [address] BENLYSTA - 05/03/2025 2:00 PM [facility] Infusion Center Hematology/Oncology [address] [facility] [place] [address] BENLYSTA - documented as of this encounter Visit Diagnoses Not on filedocumented in this encounter Care Teams Repairer Hairspring Relationship Specialty Start Date End Date Gay De La Torre(Historical), SPANISHER.AUTO SALVAGE WORKER PCP - General Family Medicine 10/24/21 02/26/22 Manuel Klein MD PCP - General Family Medicine 02/27/22 Manuel Klein MD Referring Family Medicine 02/12/22 Manuel Klein MD [address] [facility] [place] [address] Referring Family Medicine 07/06/24 documented as of this encounter
--- OUTSIDE RECORDS SUMMARY | 2025-02-24 23:54 | XMS_ITS | Encounter Summary ---
Author Organization [facility] Address [address] [place] [address] Care Team Providers Care Baler Name Role Phone Manuel Klein MD Unavailable [phone] Manuel Klein MD Primary Care Provider +-4 Manuel Klein MD Unavailable [phone] Source Comments In the event this information is protected by the Federal Confidentiality of Alcohol and Drug AbusePatient Records regulations: The Federal rules restrict any use of the information to criminally investigate or prosecute any alcohol or drug abuse patient.[facility] Encounter Details Date Type Department Care Team (Late st Contact Info) Description 05/05/2022 Patient Msg Home Respiratory Therapy [address] [place] [address] [place] [phone] Jami Rivera, PSS PAP Referral Delay Social [...] N ot on file 08/09/2020 Data from: https://www.neighborhoodatlas.medicine.[facility]/. Last address used for calculation [...] Contact Info) Description 03/08/2025 2:00 PM EDT [facility] Center Hematology/Oncology [address] [facility] [place] [address] BENLYSTA - 03/21/2025 9:00 AM EDT Office Visit [facility] Laboratory [address] [facility] [place] [address] 4 week follow up IVIG - pt to see MASON for this appt per Fara 03/21/2025 9:20 AM EDT Visit (SP) Office Hematology/Oncology [address] [facility] [place] [address] Jose Cho MD [address] [facility] [place] [address] 4 week follow up IVIG - pt to see MASON for this appt per Fara 03/21/2025 9:40 AM EDT Infusion Center Hematology/Oncology [address] [facility] [place] [address] Gabbi, Chair 4 [address] [facility] [place] [address] 4 week follow up IVIG - pt to see MASON for this appt per Fara 04/05/2025 2:00 PM EST Infusion Center Hematology/Oncology [address] [place] [address] BENLYSTA - 05/03/2025 2:00 PM [facility] Infusion Center Hematology/Oncology [address] [facility] [place] [address] BENLYSTA - documented as of this encounter Visit Diagnoses Not on filedocumented in this encounter Care Teams Baler Relationship Specialty Start Date End Date Manuel Klein MD PCP - General Family Medicine 02/27/22 Maunel Klein MD Referring Family Medicine 02/12/22 Manuel Klein MD [address] [facility] [place] [address] Referring Family Medicine 07/06/24 documented as of this encounter
--- OUTSIDE RECORDS SUMMARY | 2025-02-24 23:54 | XMS_ITS | Encounter Summary ---
Author Organization [facility] Address [id number] [address] [place] [address] Care Team Providers Care Technical Translator Name Role Phone Unavailable Primary Care Provider Unavailabl e Encounter Details Date Type Department Care Team (Late st Contact Info) Description 05/05/2024 Orders Only [facility] [address] [place] [address] Felicia Payne CMA Cold extremities; Pain of lower extremity, unspecified laterality; Systemic lupus erythematosus ([facility]) Social History Tobacco Use Types Packs/Day [...]
--- OUTSIDE RECORDS SUMMARY | 2025-02-24 23:54 | XMS_ITS | Encounter Summary ---
Author Organization [facility] Address [address] [facility] [place] [address] Care Team Providers Care Career Coordinator Name Role Phone Gay De La Torre MD Unavailable [phone] Encounter Details Date Type Department Care [...] AM EDT Consult [facility] [address] [address] Terence Blum MD [address] [facility] [address] [place] [address] 03/19/2025 10:20 AM EDT Office Visit [facility] [address] [facility] [address] [place] [address] Mary Grace Mejias MD [address] [facility] [address] [place] [address] 07/25/2025 11:00 AM EST Office Visit [facility] [address] [place] [address] Cynthia English MD [address] [place] [address] documented as of this encounter Visit Diagnoses Not on filedocumented in this encounter Care Teams Career Coordinator Relationship Specialty Start Date End Date Gay De La Torre MD [address] [place] [address] Referring Physician Family Medicine 07/18/24 documented as of this encounter
--- OUTSIDE RECORDS SUMMARY | 2025-02-24 23:54 | XMS_ITS | Encounter Summary ---
Author Organization [facility] Address [address] [place] [address] Care Team Providers Care Sailboat Captain Name Role Phone Manuel Klein MD Unavailable [phone] Manuel Klein MD Primary Care Provider +-4 Manuel Klein MD Unavailable [phone] Source Comments In the event this [...] Patient Msg [facility] [address] [place] [address] Provider, Ccf Video Visit Social [...] N ot on file 08/09/2020 Data from: https://www.neighborhoodatlas.medicine.[facility]/. Last address used for calculation [...] [facility] Center Hematology/Oncology [address] [facility] [place] [address] BENLYSTA - 03/21/2025 9:00 AM EDT Office Visit [facility] Laboratory [address] [facility] [place] [address] 4 week follow up IVIG - pt to see MASON for this appt per Fara 03/21/2025 9:20 AM EDT Visit (SP) Office Hematology/Oncology [address] [place] [place] [address] Jose Cho MD [address] [facility] [place] [address] 4 week follow up IVIG - pt to see MASON for this appt per Fara 03/21/2025 9:40 AM EDT Infusion Center Hematology/Oncology [address] [place] [place] [address] Gabbi, Chair [address] [facility] [place] [address] 4 week follow up IVIG - pt to see MASON for this appt per Fara 04/05/2025 2:00 PM EST Infusion Center Hematology/Oncology [address] [place] [address] [place] [address] BENLYSTA - 05/03/2025 2:00 PM [facility] Infusion Center Hematology/Oncology [address] [place] [address] [place] [address] BENLYSTA - documented as of this encounter Visit Diagnoses Not on filedocumented in this encounter Care Teams Sailboat Captain Relationship Specialty Start Date End Date Manuel Klein MD PCP - General Family Medicine 02/27/22 Manuel Klein MD Referring Family Medicine 02/12/22 Manuel Klein MD [address] [place] [address] Referring Family Medicine 07/06/24 documented as of this encounter
--- OUTSIDE RECORDS SUMMARY | 2025-02-24 23:54 | XMS_ITS | Encounter Summary ---
Author Organization [facility] Address [address] [place] [address] Care Team Providers Care Maintenance Repairer Name Role Phone House, Charles Culver MD Primary Care Provider [phone] Gay De La Torre MD Unavailable [phone] Encounter Details Date Type Department Care Team (Late Contact Info) Description 09/29/2023 Clinisync Result Encounter [facility] External Department Unsolicited Zita Rogers, DEPLOYMENT ENGINEER [address] [facility] [address] [address] Social History Tobacco Use Types Packs/Day Years [...] AM EDT Consult [facility] 7[address] [facility] 150 [place] [address] Terence Blum MD 703 [facility] 150 [place] [address] 03/19/2025 10:20 AM EDT Office Visit [facility] [address] [facility] [address] [place] [address] Mary Grace Mejias MD 112 [facility] 130 [place] [address] 07/25/2025 11:00 AM EST Office Visit [facility] [address] [place] [address] Cynthia English MD [address] [place] [address] documented as of this encounter Procedures Procedure Name Priority Date/Time Associated Diagnosis Comments XR THORACIC SPINE 3V 09/29/2023 7:22 AM EDT documented in this encounter Results * XR THORACIC SPINE 3V (09/29/2023 7:22 AM EDT) Anatomical Region Laterality Modality Other 09/29/2023 7:22 AM EDT Narrative 09/29/2023 7:25 AM EDT [address] [address] XRay Report Signed Patient: JONES PANIAGUA MR#: [id number] : 1980 Acct:[id number] Age/Sex: 42 / F ADM Date: 09/28/23 Loc: RAD Attending Dr: ZITA ROGERS Ordering Physician: ZITA ROGERS Date of Service: 09/28/23 Procedure(s): XR thoracic spine 3V Accession Number(s): [id number] cc: GAY DE LA TORRE ; ZITA ROGERS The [address] [address] Patient Name: JONES PANIAGUA MRN: [id number] date: 1980 Sex: F Assigned Patient Location: RAD Current Patient Location: Accession/Order Number: [id number] Exam Date: 09/28/2023 14:43 Report Date: 09/29/2023 [...] M.D. Signed By: 09/29/2325 DD/ 1 TD/TT: Music Cataloguer: Procedure Note Radiology, Radiologist, MD - 09/29/2023 [place] [address] XRay Report Signed Patient: JONES PANIAGUA BMR#: [id number] : 1980Acct:[id number] Age/Sex: 42 / FADM Date: 09/28/23 Loc: [facility] Attending Dr: ZITA ROGERS Ordering Physician: ZITA ROGERS Date of Service: 09/28/23 Procedure(s): XR thoracic spine 3V Accession Number(s): [id number] cc: GAY DE LA TORRE ; ZITA ROGERS The [place] [address] Patient Name: JONES PANIAGUA MRN: [id number] date: 1980 Sex: F Assigned Patient Location: [facility] Current Patient Location: Accession/Order Number: [id number] Exam Date: 09/28/2023 14:43 Report Date: 09/29/2023 [...] Shaikh M.D. Signed By:09/29/23724 DD/ 1 TD/TT: Music Cataloguer: us Zita Rogers DEPLOYMENT ENGINEER [facility] Final Result documented in this encounter Visit Diagnoses Not on filedocumented in this encounter Care Teams Maintenance Repairer Relationship Specialty Start Date End Date Charles Nicole MD PCP - General Family Medicine 02/09/24 07/17/24 Gay De La Torre MD [address] [place], [place] [id number] Referring Physician Family Medicine 07/18/24 documented as of this encounter
--- OUTSIDE RECORDS SUMMARY | 2025-02-24 23:54 | XMS_ITS | Encounter Summary ---
Author Organization [facility] Address [address] [facility] [address] Care Team Providers Care Algorithm Developer Name Role Phone Gay De La Torre MD Unavailable [phone] Reason for Visit * Reason Comments Med Refill Encounter Details Date Type Department Care Team (Late Contact Info) Description 12/07/2024 Refill [facility] [address] [facility] [address] [place] [phone] Андрей Hearn DO [address] [facility] [address] [place] [address] Eustachian tube dysfunction, bilateral; Non-recurrent acute serous [...] AM EDT Consult [facility] [address] [facility] 150 [place] [phone] Terence Blum MD [address] [facility] 150 [place] [address] 03/19/2025 10:20 AM EDT Office Visit [facility] [address] [place] [address] Mary Grace Mejias MD 112 [facility] 130 [place] [address] 07/25/2025 11:00 AM EST Office Visit [facility] [address] [place] [address] Cynthia English MD [address] [place] [address] documented as of this encounter Visit Diagnoses Diagnosis Eustachian tube dysfunction, bilateral Non-recurrent acute serous otitis media of both ears documented in this encounter Care Teams Algorithm Developer Relationship Specialty Start Date End Date Gay De La Torre MD [address] [place] [address] Referring Physician Family Medicine 07/18/24 documented as of this encounter
--- OUTSIDE RECORDS SUMMARY | 2025-02-24 23:54 | XMS_ITS | Encounter Summary ---
Author Organization [facility] Address [address] [place] [address] Care Team Providers Care Door Worker Name Role Phone Manuel Klein MD Unavailable [phone] Manuel Klein MD Primary Care Provider +-4 Manuel Klein MD Unavailable [phone] Source Comments In the event this information is protected by the Federal Confidentiality of Alcohol and Drug AbusePatient Records regulations: The Federal rules restrict any use of the information to criminally investigate or prosecute any alcohol or drug abuse patient.[facility] Encounter Details Date Type Department Care Team (Late st Contact Info) Description 02/27/2022 Get Medical Advice Infectious Disease [address] [place] [address] Tiffany Head DO [address] [place] [address] Blood work Social History Tobacco [...] on file 08/09/2020 Data from: https://www.neighborhoodatlas.medicine.[facility]/. Last address used for calculation Not on [...] Contact Info) Description 03/08/2025 2:00 PM EDT [facility] Center Hematology/Oncology [address] [facility] [place] [address] BENLYSTA - 03/21/2025 9:00 AM EDT Office Visit [facility] [address] [place] [address] [place] [address] 4 week follow up IVIG - pt to see MASON for this appt per [facility] 03/21/2025 9:20 AM EDT Visit (SP) Office Hematology/Oncology [address] [facility] [place] [address] Jose Cho MD [address] [facility] [place] [address] 4 week follow up IVIG - pt to see MASON for this appt per [facility] 03/21/2025 9:40 AM EDT Infusion Center Hematology/Oncology [address] [facility] [place] [address] Gabbi, Chair 4 [address] [facility] [place] [address] 4 week follow up IVIG - pt to see MASON for this appt per [facility] 04/05/2025 2:00 PM EST Infusion Center Hematology/Oncology [address] [facility] [place] [address] BENLYSTA - 05/03/2025 2:00 PM EST Infusion Center Hematology/Oncology [address] [facility] [place] [address] BENLYSTA - documented as of this encounter Visit Diagnoses Not on filedocumented in this encounter Care Teams Door Worker Relationship Specialty Start Date End Date Manuel Klein MD PCP - General Family Medicine 02/27/22 Manuel Klein MD Referring Family Medicine 02/12/22 Manuel Klein MD [address] [place] [address] Referring Family Medicine 07/06/24 documented as of this encounter
--- OUTSIDE RECORDS SUMMARY | 2025-02-24 23:54 | XMS_ITS | Encounter Summary ---
Author Organization [facility] Address [address] [facility] [place] [address] Care Team Providers Care Quickbooks Bookkeeper Name Role Phone Gay De La Torre MD Unavailable [phone] Encounter Details Date Type Department Care Team (Late st Contact Info) Description 01/30/2025 Results Follow-Up [facility] [address] [address] Sabi Barker LPN [address] [place] [phone] Left breast US limited Social History Tobacco [...] Consult [facility] [address] [facility] 150 [place] [phone] Terence Blum MD 7[address] [facility] [address] [place] [address] 03/19/2025 10:20 AM EDT Office Visit [facility] [address] [place] [address] Mary Grace Mejias MD 112 [facility] 130 [place] [address] 07/25/2025 11:00 AM EST Office [facility] [address] [place] [address] Cynthia English MD [address] [place] [address] documented as of this encounter Visit Diagnoses Not on filedocumented in this encounter Care Teams Quickbooks Bookkeeper Relationship Specialty Start Date End Date Gay De La Torre MD [address] [place] [address] Referring Physician Family Medicine 07/18/24 documented as of this encounter
--- OUTSIDE RECORDS SUMMARY | 2025-02-24 23:54 | XMS_ITS | Encounter Summary ---
Author Organization [facility] Address [id number] [address] [place] [address] Care Team Providers Care Rolled Seat Trimmer Name Role Phone Unavailable Primary Care Provider Unavailabl e Encounter Details Date Type Department Care Team (Late st Contact Info) Description 04/05/2024 Orders Only [facility] [address] [place] [address] Ref Prov, [place] [address] Social History Tobacco Use Types Packs/Day Years [...]
--- OUTSIDE RECORDS SUMMARY | 2025-02-24 23:54 | XMS_ITS | Clinical Summary ---
Author Organization [facility] Address [id number] [address] [place] [address] Care Team Providers Care Contemporary Or Modern Dancer Name Role Phone Unavailable Primary Care Provider [...]
--- OUTSIDE RECORDS SUMMARY | 2025-02-24 23:54 | XMS_ITS | Encounter Summary ---
Author Organization [facility] Address [address] [facility] [place] [address] Care Team Providers Care Clinical Dietitian Name Role Phone House, Charles Culver MD Primary Care Provider [phone] Gay De La Torre MD Unavailable [phone] Encounter Details Date Type Department Care Team (Late Contact Info) Description 11/18/2023 Clinisync Result Encounter [facility] External Department Unsolicited Katy Valdivia, DO 102 [facility] [address] [place], [place] [phone] Social History Tobacco Use Types Packs/Day Years [...] AM EDT Consult [facility] 7[address] [facility] 150 [place] [address] Terence Blum MD 703 [facility] 150 [place] [address] 03/19/2025 10:20 AM EDT Office Visit [facility] [address] [facility] [address] [place] [address] Mary Grace Mejias MD [address] [place] [address] 07/25/2025 11:00 AM EST Office Visit [facility] [address] [place] [address] Cynthia English MD [address] [place] [address] documented as of this encounter Procedures [...] EDT Narrative 11/18/2023 4:42 PM EDT The [address] [address] Ultrasound Report Signed Patient: JONES PANIAGUA MR#: [id number] : 1980 Acct:[id number] Age/Sex: 43 / F ADM Date: 11/18/23 Loc: US Attending Dr: Katy Valdivia D.O. Ordering Physician: Katy Valdivia D.O. Date of Service: 11/18/23 Procedure(s): US pelvis w/ transvaginal Accession Number(s): [id number] cc: GAY DE LA TORRE ; Katy Valdivia D.O. The [place] [id number] Patient Name: JONES PANIAGUA MRN: [id number] date: 1980 Sex: F Assigned Patient Location: US Current Patient Location: US Accession/Order Number: [id number] Exam Date: 11/18/2023 14:00 Report Date: 11/18/2023 [...] Signed By: 11/18/23 1642 DD/ 1639 TD/TT: Television Actor: Procedure Note Radiology, Radiologist, MD - 11/18/2023 [place] [address] Ultrasound Report Signed Patient: JONES PANIAGUA BMR#: [id number] : 1980Acct:[id number] Age/Sex: 43 / FADM Date: 11/18/23 Loc: US Attending Dr: Katy Valdivia D.O. Ordering Physician: Katy Valdivia D.O. Date of Service: 11/18/23 Procedure(s): US pelvis w/ transvaginal Accession Number(s): [id number] cc: GAY DE LA TORRE ; Katy Valdivia D.O. [place] [address] Patient Name: JONES PANIAGUA MRN: [facility]:[id number] date: 1980 Sex: F Assigned Patient Location: US Current Patient Location: US Accession/Order Number: [id number] Exam Date: 11/18/2023 14:00 Report Date: 11/18/2023 [...] M.D. Signed By:11/18/23 1642 DD/ 1639 TD/TT: Television Actor: us Katy Valdivia DO [facility] Final Result * (ABNORMAL) ALL DEHYDROEPIANDROSTERONE (11/18/2023 3:04 PM EDT) DHEA, SERUM 25(A) 31 - 701 ng/dL [facility] Comment: This test was developed and its performance characteristics determined by [facility]. It has not been cleared or approved by the Food and Drug Administration. Performed at: [address] [id number] Credit Review Analyst: Senait Hardin MD, Phone: [phone] 11/18/2023 3:04 PM EDT 11/18/2023 3:14 PM EDT Narrative [facility] - 11/23/2023 12:10 PM EDT Katy Skip DO [facility] Final Result [facility] * (ABNORMAL) [facility] PROLACTIN (11/18/2023 3:04 PM EDT) PROLACTIN 4.7(A) 4.8 - 33.4 ng/mL [facility] Comment: Performed at: [address] [id number] Credit Review Analyst: Doyle Mendenhall PhD, Phone: [phone] 11/18/2023 3:04 PM EDT 11/18/2023 3:14 PM EDT Narrative [facility] - 11/19/2023 4:07 AM EDT Katy Skip DO [facility] Final Result Performing Organization Address City/[facility] Co de Phone Number [facility] * [...] EDT Katy Skip DO [facility] Final Result [facility] TB * ALL LUTEINIZING HORMONE (11/18/2023 3:04 PM EDT) LUTEINIZING HORMONE(LH) 24.9 . mIU/mL [facility] Comment: Adult Female Range Follicular phase 2.4 - 12.6 Ovulation phase 14.0 - 95.6 Luteal phase 1.0 - 11.4 Postmenopausal 7.7 - 58.5 11/18/2023 3:04 PM EDT 11/18/2023 3:14 PM EDT Narrative [facility] - 11/19/2023 4:07 AM EDT Katy Skip DO [facility] Final Result Performing Organization Address [facility] Co de Phone Number [facility] TB * (ABNORMAL) ALL DHEA SULFATE (11/18/2023 3:04 PM EDT) DHEA-SULFATE 15.4(A) 57.3 - 279.2 ug/dL [facility] 11/18/2023 3:04 PM EDT 11/18/2023 3:14 PM EDT Narrative [facility] - 11/19/2023 4:07 AM EDT Katy Skip DO [facility] Final Result Performing Organization Address [facility] Co de Phone Number [facility] documented in this encounter Visit Diagnoses Not on filedocumented in this encounter Care Teams Clinical Dietitian Relationship Specialty Start Date End Date Charles Nicole MD PCP - General Family Medicine 02/09/24 07/17/24 Gay De La Torre MD [address] [place] [address] Referring Physician Family Medicine 07/18/24 documented as of this encounter
--- OUTSIDE RECORDS SUMMARY | 2025-02-24 23:54 | XMS_ITS | Encounter Summary ---
Author Organization [facility] Address [address] [facility] [place] [address] Care Team Providers Care Data Modeler Name Role Phone Gay De La Torre MD Unavailable [phone] Encounter Details Date Type Department Care [...] AM EDT Consult [facility] [address] [address] Terence Blum MD 703 [facility] 150 [place] [address] 03/19/2025 10:20 AM EDT Office Visit [facility] [address] [facility] 900 [place] [address] Mary Grace Mejias MD 112 [facility] 130 [place] [address] 07/25/2025 11:00 AM EST Office Visit [facility] [address] [place] [address] Cynthia English MD [address] [place] [address] documented as of this encounter Visit Diagnoses Not on filedocumented in this encounter Care Teams Data Modeler Relationship Specialty Start Date End Date Gay De La Torre MD [address] [place] [address] Referring Physician Family Medicine 07/18/24 documented as of this encounter
--- OUTSIDE RECORDS SUMMARY | 2025-02-24 23:54 | XMS_ITS | Encounter Summary ---
Author Organization [facility] Address [address] [place] [address] Care Team Providers Care Extractions Technologist Name Role Phone Manuel Klein MD Unavailable [phone] Manuel Klein MD Primary Care Provider +-4 Manuel Klein MD Unavailable [phone] Source Comments In the event this information is protected by the Federal Confidentiality of Alcohol and Drug AbusePatient Records regulations: The Federal rules restrict any use of the information to criminally investigate or prosecute any alcohol or drug abuse patient.[facility] Encounter Details Date Type Department Care Team (Late st Contact Info) Description 03/18/2022 Get Medical Advice Allergy [address] [place] [phone] Misty Nelson MD [address] [place] [address] Test results Social History Tobacco Use [...] Data from: https://www.neighborhoodatlas.medicine.[facility]/. Last address used for calculation Not on [...] 2:00 PM EDT Infusion Center Hematology/Oncology [address] [place] [address] BENLYSTA - 03/21/2025 9:00 AM EDT Office Visit [facility] [address] [place] [address] 4 week follow up IVIG - pt to see MASON for this appt per [facility] 03/21/2025 9:20 AM EDT Visit (SP) Office Hematology/Oncology [address] [place] [address] Jose Cho MD [address] [facility] [address] 4 week follow up IVIG - pt to see MASON for this appt per [facility] 03/21/2025 9:40 AM EDT Infusion Center Hematology/Oncology [address] [facility] [place] [address] Gabbi, Chair [address] [place] [address] 4 week follow up IVIG - pt to see MASON for this appt per [facility] 04/05/2025 2:00 PM EST Infusion Center Hematology/Oncology [address] [place] [address] BENLYSTA - 05/03/2025 2:00 PM [facility] Infusion Center Hematology/Oncology [address] [facility] [address] BENLYSTA - documented as of this encounter Visit Diagnoses Not on filedocumented in this encounter Care Teams Extractions Technologist Relationship Specialty Start Date End Date Manuel Klein MD PCP - General Family Medicine 02/27/22 Manuel Klein MD Referring Family Medicine 02/12/22 Manuel Klein MD [address] [place] [address] Referring Family Medicine 07/06/24 documented as of this encounter
--- OUTSIDE RECORDS SUMMARY | 2025-02-24 23:54 | XMS_ITS | Clinical Summary ---
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
--- OUTSIDE RECORDS SUMMARY | 2025-02-24 23:54 | XMS_ITS | Encounter Summary ---
Author Organization [facility] Address [address] [place] [address] Care Team Providers Care English As A Second Language Teacher Name Role Phone House, Charles Culver MD Primary Care Provider Gay De La Torre MD Unavailable [phone] Encounter Details Date Type Department Care Team (Late Contact Info) Description 10/19/2022 Abstract [facility] [address] [facility] [address] [place] [address] Cynthia English MD [address] [facility] 350 [place] [address] Social History Tobacco Use Types Packs/Day Years [...] EDT Consult [facility] [address] [facility] 150 [place] [address] Terence Blum MD 703 [facility] 150 [place] [address] 03/19/2025 10:20 AM EDT Office Visit [facility] [address] [place] [address] Mary Grace Mejias MD 112 [facility] [address] [place] [address] 07/25/2025 11:00 AM EST Office Visit [facility] [place] [facility] [address] [place] [address] Cynthia English MD [address] [place] [address] documented as of this encounter Visit Diagnoses Not on filedocumented in this encounter Care Teams English As A Second Language Teacher Relationship Specialty Start Date End Date Charles Nicole MD PCP - General Family Medicine 02/09/24 07/17/24 Gay De La Torre MD [address] [place] [address] Referring Physician Family Medicine 07/18/24 documented as of this encounter
--- OUTSIDE RECORDS SUMMARY | 2025-02-24 23:54 | XMS_ITS | Encounter Summary ---
Author Organization [facility] Address [address] [place] [address] Care Team Providers Care Tray Line Worker Name Role Phone Manuel Klein MD Unavailable [phone] Manuel Klein MD Primary Care Provider +-4 Manuel Klein MD Unavailable [phone] Source Comments In the event this information is protected by the Federal Confidentiality of Alcohol and Drug AbusePatient Records regulations: The Federal rules restrict any use of the information to criminally investigate or prosecute any alcohol or drug abuse patient.[facility] Encounter Details Date Type Department Care Team (Late st Contact Info) Description 03/26/2022 Patient Msg Allergy [address] [place] [phone] Misty Nelson MD [facility]2 [place] [address] lab results Social History Tobacco [...] N ot on file 08/09/2020 Data from: https://www.neighborhoodatlas.medicine.[facility]/. Last address used for calculation Not [...] [facility] Center Hematology/Oncology [address] [place] [address] [place] [address] BENLYSTA - 03/21/2025 9:00 AM EDT Office Visit [facility] [address] [place] [address] 4 week follow up IVIG - pt to see MASON for this appt per [facility] 03/21/2025 9:20 AM EDT Visit (SP) Office Hematology/Oncology [address] [facility] [address] Jose Cho MD [address] [facility] [place] [address] 4 week follow up IVIG - pt to see MASON for this appt per [facility] 03/21/2025 9:40 AM EDT Infusion Center Hematology/Oncology [address] [facility] [place] [address] Gabbi, [facility] 4 [address] [facility] [place] [address] 4 week follow up IVIG - pt to see MASON for this appt per [facility] 04/05/2025 2:00 PM EST Infusion Center Hematology/Oncology [address] [facility] [address] BENLYSTA - 05/03/2025 2:00 PM [facility] Infusion Center Hematology/Oncology [address] [facility] [place] [address] BENLYSTA - documented as of this encounter Visit Diagnoses Not on filedocumented in this encounter Care Teams Tray Line Worker Relationship Specialty Start Date End Date Manuel Klein MD PCP - General Family Medicine 02/27/22 Manuel Klein MD Referring Family Medicine 02/12/22 Manuel Klein MD [address] [place] [address] Referring Family Medicine 07/06/24 documented as of this encounter
--- OUTSIDE RECORDS SUMMARY | 2025-02-24 23:54 | XMS_ITS | Encounter Summary ---
Author Organization [facility] Address [facility] [place] [address] Care Team Providers Care Returned Goods Inspector Name Role Phone Manuel Klein MD Unavailable [phone] Manuel Klein MD Primary Care Provider +-4 Manuel Klein MD Unavailable [phone] Source Comments In the event this information is protected by the Federal Confidentiality of Alcohol and Drug AbusePatient Records regulations: The Federal rules restrict any use of the information to criminally investigate or prosecute any alcohol or drug abuse patient.[facility] Encounter Details Date Type Department Care Team (Late st Contact Info) Description 07/27/2022 Patient Msg Neurology [address] [place] [address] Lexus Heck APRN.[place] [phone] Sleep Follow up Social History Tobacco Use [...] N ot on file 08/09/2020 Data from: https://www.neighborhoodatlas.medicine.[facility]/. Last address used for calculation Not [...] Contact Info) Description 03/08/2025 2:00 PM EDT [facility] Center Hematology/Oncology [address] [place] [address] BENLYSTA - 03/21/2025 9:00 AM EDT Office Visit [facility] [address] [place] [address] [place] [address] 4 week follow up IVIG - pt to see MASON for this appt per [facility] 03/21/2025 9:20 AM EDT Visit (SP) Office Hematology/Oncology [address] [facility] [place] [address] Jose Cho MD [address] [place] [address] 4 week follow up IVIG - pt to see MASON for this appt per [facility] 03/21/2025 9:40 AM EDT Infusion Center Hematology/Oncology [address] [place] [address] Gabbi, Chair [address] [place] [address] 4 week follow up IVIG - pt to see MASON for this appt per [facility] 04/05/2025 2:00 PM EST Infusion Center Hematology/Oncology [address] [place] [address] BENLYSTA - 05/03/2025 2:00 PM [facility] Infusion Center Hematology/Oncology [address] [place] [address] BENLYSTA - documented as of this encounter Visit Diagnoses Not on filedocumented in this encounter Care Teams Returned Goods Inspector Relationship Specialty Start Date End Date Manuel Klein MD PCP - General Family Medicine 02/27/22 Manuel Klein MD Referring Family Medicine 02/12/22 Manuel Klein MD [address] [place] [address] Referring Family Medicine 07/06/24 documented as of this encounter
--- OUTSIDE RECORDS SUMMARY | 2025-02-24 23:54 | XMS_ITS | Encounter Summary ---
Author Organization [facility] Address [address] [place] [address] Care Team Providers Care Ged Preparation Teacher Name Role Phone Manuel Klein MD Unavailable [phone] Manuel Klein MD Primary Care Provider [phone] Manuel Klein MD Unavailable [phone] Source Comments In the event this information is protected by the Federal Confidentiality of Alcohol and Drug AbusePatient Records regulations: The Federal rules restrict any use of the information to criminally investigate or prosecute any alcohol or drug abuse patient.[facility] Encounter Details Date Type Department Care Team (Late st Contact Info) Description 06/10/2022 Patient Msg Hematology/Oncology [address] [place] [address] Cele Marshall Nurse Dre [address] [place] [address] Appointment Cancellation Request Social History Tobacco [...] N ot on file 08/09/2020 Data from: https://www.neighborhoodatlas.medicine.[facility]/. Last address used for calculation Not on [...] Assessment Author Yes 12/25/2014 11:14 AM EDT Cihchi De Jesus * Because of a physical, [...] Contact Info) Description 03/08/2025 2:00 PM EDT [facility] Hematology/Oncology [address] [place] [address] BENLYSTA - 03/21/2025 9:00 AM EDT Office Visit [facility] [place] [address] 4 week follow up IVIG - pt to see MASON for this appt per [facility] 03/21/2025 9:20 AM EDT Visit (SP) Office Hematology/Oncology [address] [facility] [place] [address] Jose Cho MD [address] [facility] [place] [address] 4 week follow up IVIG - pt to see MASON for this appt per [facility] 03/21/2025 9:40 AM EDT Infusion Center Hematology/Oncology [address] [facility] [place] [address] Gabbi, Chair 4 [address] [facility] [place] [address] 4 week follow up IVIG - pt to see MASON for this appt per [facility] 04/05/2025 2:00 PM EST Infusion Center Hematology/Oncology [address] [facility] [place] [address] BENLYSTA - 05/03/2025 2:00 PM [facility] Infusion Center Hematology/Oncology [address] [facility] [place] [address] BENLYSTA - documented as of this encounter Visit Diagnoses Not on filedocumented in this encounter Care Teams Ged Preparation Teacher Relationship Specialty Start Date End Date Manuel Klein MD PCP - General Family Medicine 02/27/22 Manuel Klein MD Referring Family Medicine 02/12/22 Manuel Klein MD [address] [place] [address] Referring Family Medicine 07/06/24 documented as of this encounter
--- OUTSIDE RECORDS SUMMARY | 2025-02-24 23:54 | XMS_ITS | Encounter Summary ---
Author Organization [facility] Address [address] [place] [address] Care Team Providers Care Health And Wellness Advisor Name Role Phone Gay De La Torre MD Unavailable Encounter Details Date Type Department Care Team (Late Contact Info) Description 02/14/2025 Bamboo flowsheet [facility] [address] [facility] [address] [place] [phone] Cynthia English MD [address] [facility] [address] [place] [address] Social History Tobacco Use Types Packs/Day Years [...] AM EDT Consult [facility] 703 [facility] 150 [place] [phone] Terence Blum MD 703 [facility] 150 [place] [address] 03/19/2025 10:20 AM EDT Office Visit [facility] [address] [place] [address] Mary Grace Mejias MD 112 [facility] 130 [place] [address] 07/25/2025 11:00 AM EST Office Visit [facility] [address] [place] [address] Cynthia English MD [address] [place] [address] documented as of this encounter Visit Diagnoses Not on filedocumented in this encounter Care Teams Health And Wellness Advisor Relationship Specialty Start Date End Date Gay De La Torre MD [address] [place] [address] Referring Physician Family Medicine 07/18/24 documented as of this encounter
--- OUTSIDE RECORDS SUMMARY | 2025-02-24 23:54 | XMS_ITS | Encounter Summary ---
Author Organization [facility] Address [address] [place] [address] Care Team Providers Care Software Development Test Engineer Name Role Phone Manuel Klein MD Unavailable [phone] Manuel Klein MD Primary Care Provider [phone] Manuel Klein MD Unavailable [phone] Source Comments In the event this information is protected by the Federal Confidentiality of Alcohol and Drug AbusePatient Records regulations: The Federal rules restrict any use of the information to criminally investigate or prosecute any alcohol or drug abuse patient.[facility] Encounter Details Date Type Department Care Team (Late st Contact Info) Description 03/18/2022 Get Medical Advice Hematology/Oncology [facility] [place] [address] Jose Cho MD [facility] [address] [facility] [place] [address] Blood work Social History Tobacco Use [...] N ot on file 08/09/2020 Data from: https://www.neighborhoodatlas.[facility]/. Last address used for calculation Not on [...] 2:00 PM EDT Infusion Center Hematology/Oncology [address] [facility] [place] [address] BENLYSTA - 03/21/2025 9:00 AM EDT Office Visit [facility] [address] [place] [address] 4 week follow up IVIG - pt to see MASON for this appt per [facility] 03/21/2025 9:20 AM EDT Visit (SP) Office Hematology/Oncology [address] [facility] [place] [address] Jose Cho MD [address] [facility] [place] [address] 4 week follow up IVIG - pt to see MASON for this appt per [facility] 03/21/2025 9:40 AM EDT Infusion Center Hematology/Oncology [address] [facility] [place] [address] Gabbi, Chair 4 [address] [facility] [place] [address] 4 week follow up IVIG - pt to see MASON for this appt per [facility] 04/05/2025 2:00 PM EST Infusion Center Hematology/Oncology [address] [place] [address] BENLYSTA - 05/03/2025 2:00 PM [facility] Infusion Center Hematology/Oncology [address] [facility] [place] [address] BENLYSTA - documented as of this encounter Visit Diagnoses Not on filedocumented in this encounter Care Teams Software Development Test Engineer Relationship Specialty Start Date End Date Manuel Klein MD PCP - General Family Medicine 02/27/22 Manuel Klein MD Referring Family Medicine 02/12/22 Manuel Klein MD [address] [place] [address] Referring Family Medicine 07/06/24 documented as of this encounter
--- OUTSIDE RECORDS SUMMARY | 2025-02-24 23:54 | XMS_ITS | Encounter Summary ---
Author Organization [facility] Address [address] [facility] [place] [address] Care Team Providers Care Stoper Name Role Phone Gay De La Torre MD Unavailable [phone] Encounter Details Date Type Department Care [...] AM EDT Consult [facility] [address] [address] Terence Blum MD 703 [facility] 150 [place] [address] 03/19/2025 10:20 AM EDT Office Visit [facility] [address] [facility] [address] [place] [address] Mary Grace Mejias MD 112 [facility] 130 [place] [address] 07/25/2025 11:00 AM EST Office Visit [facility] [address] [place] [address] Cynthia English MD [address] [place] [address] documented as of this encounter Visit Diagnoses Not on filedocumented in this encounter Care Teams Stoper Relationship Specialty Start Date End Date Gay De La Torre MD [address] [place] [address] Referring Physician Family Medicine 07/18/24 documented as of this encounter
--- OUTSIDE RECORDS SUMMARY | 2025-02-24 23:54 | XMS_ITS | Encounter Summary ---
Author Organization [facility] Address [address] [place] [address] Care Team Providers Care Rn Palliative Name Role Phone Manuel Klein MD Unavailable [phone] Manuel Klein MD Primary Care Provider +-4 Manuel Klein MD Unavailable [phone] Source Comments In the event this [...] [facility] [address] [place] [address] Christie Phan MD [address] [place] [address] Appointment Follow-UP Social History Tobacco [...] N ot on file 08/09/2020 Data from: https://www.neighborhoodatlas.medicine.[facility]/. Last address used for [...] [facility] Hematology/Oncology [address] [place] [address] BENLYSTA - 03/21/2025 9:00 AM EDT Office Visit [facility] [address] [place] [address] [place] [address] 4 week follow up IVIG - pt to see MASON for this appt per [facility] 03/21/2025 9:20 AM EDT Visit (SP) Office Hematology/Oncology [address] [facility] [address] Jose Cho MD [address] [facility] [address] 4 week follow up IVIG - pt to see MASON for this appt per [facility] 03/21/2025 9:40 AM EDT Infusion Center Hematology/Oncology [address] [place] [address] Gabbi, Chair [address] [place] [address] 4 week follow up IVIG - pt to see MASON for this appt per [facility] 04/05/2025 2:00 PM EST Infusion Center Hematology/Oncology [address] [place] [address] BENLYSTA - 05/03/2025 2:00 PM EST Infusion Center Hematology/Oncology [address] [place] [address] BENLYSTA - documented as of this encounter Visit Diagnoses Not on filedocumented in this encounter Care Teams Rn Palliative Relationship Specialty Start Date End Date Manuel Klein MD PCP - General Family Medicine 02/27/22 Mnauel Klein MD Referring Family Medicine 02/12/22 Manuel Klein MD [address] [place] [address] Referring Family Medicine 07/06/24 documented as of this encounter
--- OUTSIDE RECORDS SUMMARY | 2025-02-24 23:54 | XMS_ITS | Clinical Summary ---
Author Organization [facility] Address [address] [place] [address] Phone Care Team Providers Care Civil Rights Investigator Name Role Phone Mitali, Michelle London PARTS PROFESSIONAL-RADIOLOGY TRANSCRIPTIONIST Unavailable [phone] Kenneth Patel MD Unavailable [phone] Gay De La Torre PARTS PROFESSIONAL-RADIOLOGY TRANSCRIPTIONIST Primary Care Provider Allergies Active Allergy Reactions [...] 10/24/19 Active ergocalciferol (Vitamin D-2) 1.25 MG (21632 UT) capsule Take 1 capsule (50,000 Units) [...] Description 07/26/2025 11:00 AM EST Office Visit [facility] 703 [facility] [address] [place] [address] Lois Arguelles MD 703 [facility] [address] [place] [address] Health Maintenance Due Date Last [...] Name Priority Date/Time Associated Diagnosis Comments CONVERTED RESIDENTIAL REAL ESTATE AGENT CYTOLOGY Routine 05/04/2008 12:00 AM EST from Last 3 Months or Most Recently Relevant to Health Maintenance Results * CONVERTED RESIDENTIAL REAL ESTATE AGENT CYTOLOGY (05/04/2008 12:00 AM EST) Pathology [...] clinical findings. - Signed by: JESSICA ORTIZ [facility] 05/09/08 Electronically Signed Out By [facility], Cytology/ By the signature on [...] Source of Specimen A: Unknown Part Type [facility] Department of Pathology [address] [place] CONVERTED FINAL DIAGNOSIS Satisfactory for [...] clinical findings. - Signed by: JESSICA ORTIZ [facility] 05/09/08 [facility] COPATH CONVERTED CLINICAL DIAGNOSIS-HIST ORY - HISTORY & COMMENTS LMP: 02/14/08 Reflex HPV ordered if result is ASCUS [facility] [employer] CONVERTED SLIDE-BLOCK DESCRIPTION - TISSUES - 1. CERVICAL THIN PREP - [facility] CONVERTED REPORT COMMENTS [place] Case # [id number] DOS: 05/04/08 - ORD PHYSICIAN: Jose Blackburn MD - ORD PROCEDURES - CYTO PAP TLP MAN / - COPIES TO: Jose Blackburn MD - Status History - ENT 05/07/08 1128 ISABELL HARRIS DIAG 05/09/08 0750 JESSICA ORTIZ 05/09/08 1524 JESSICA ORTIZ - [place] Conversion Report - [facility] CONVERTED FINAL REPORT PDF LINK TO COPY AND PASTE \copathshare\copa th\PDF [id number].pdf [facility] Unrecognized Part Type 05/04/2008 05/07/2008 11:28 AM EST us Copath Conversion LAB CYTOLOGY ORDERABLES Final Result [facility] COPATH [address] [place] [address] from Last 3 Months or Most Recently Relevant to Health Maintenance [facility] Care Teams Civil Rights Investigator Relationship Specialty Start Date End Date Gay De La Torre APRN-RADIOLOGY TRANSCRIPTIONIST [address] [place] [id number] PCP - General 07/13/23 Michelle Jasmine APRN-RADIOLOGY TRANSCRIPTIONIST Nurse Practitioner Cardiology 06/08/23 Kenneth Patel MD Consulting Physician Cardiology 06/23/23
--- OUTSIDE RECORDS SUMMARY | 2025-02-24 23:54 | XMS_ITS | Encounter Summary ---
Author Organization [facility] Address [address] [place] [address] Care Team Providers Care Brazing Machine Tender Name Role Phone House, Charles Culver MD Primary Care Provider [phone] Gay De La Torre MD Unavailable [phone] Encounter Details Date Type Department Care Team (Late Contact Info) Description 09/29/2023 Clinisync Result Encounter [facility] External Department Unsolicited Zita Rogers, RN PERIOPERATIVE 53[address] [facility] [address] [address] Social History Tobacco Use Types Packs/Day Years [...] AM EDT Consult [facility] 703 [facility] 150 [place] [phone] Terence Blum MD 703 [facility] 150 [place] [address] 03/19/2025 10:20 AM EDT Office Visit [facility] [address] [facility] [address] [place] [address] Mary Grace Mejias MD 112 [facility] 130 [place] [address] 07/25/2025 11:00 AM EST Office Visit [facility] [address] [place] [address] Cynthia English MD [address] [place] [address] documented as of this encounter Procedures Procedure Name Priority Date/Time Associated Diagnosis Comments XR LUMBAR SPINE MIN 4V 09/29/2023 7:22 AM EDT documented in this encounter Results * XR LUMBAR SPINE MIN 4V (09/29/2023 7:22 AM EDT) Anatomical Region Laterality Modality Other 09/29/2023 7:22 AM EDT Narrative 09/29/2023 7:25 AM EDT [address] [address] XRay Report Signed Patient: JONES PANIAGUA MR#: [id number] : 1980 Acct:[id number] Age/Sex: 42 / F ADM Date: 09/28/23 Loc: RAD Attending Dr: ZITA ROGERS Ordering Physician: ZITA ROGERS Date of Service: 09/28/23 Procedure(s): XR lumbar spine min 4V Accession Number(s): [id number] cc: GAY DE LA TORRE ; ZITA ROGERS The [address] [address] Patient Name: JONES PANIAGUA MRN: [id number] date: 1980 Sex: F Assigned Patient Location: RAD Current Patient Location: Accession/Order Number: [id number] Exam Date: 09/28/2023 14:41 Report Date: 09/29/2023 [...] M.D. Signed By: 09/29/2325 DD/ 1 TD/TT: Operations Research Analyst: Procedure Note Radiology, Radiologist, MD - 09/29/2023 [place] [address] XRay Report Signed Patient: JONES PANIAGUA R#: [id number] : 1980Acct:[id number] Age/Sex: 42 / FADM Date: 09/28/23 Loc: [facility] Attending Dr: ZITA ROGERS Ordering Physician: ZITA ROGERS Date of Service: 09/28/23 Procedure(s): XR lumbar spine min 4V Accession Number(s): [id number] cc: GAY DE LA TORRE ; ZITA ROGERS The [place] [id number] Patient Name: JONES PANIAGUA MRN: [id number] date: 1980 Sex: F Assigned Patient Location: [facility] Current Patient Location: Accession/Order Number: [id number] Exam Date: 09/28/2023 14:41 Report Date: 09/29/2023 [...] Shaikh M.D. Signed By:09/29/23724 DD/ 1 TD/TT: Operations Research Analyst: us Zita Rogers RN [facility] Final Result documented in this encounter Visit Diagnoses Not on filedocumented in this encounter Care Teams Brazing Machine Tender Relationship Specialty Start Date End Date Charles Nicole MD PCP - General Family Medicine 02/09/24 07/17/24 Gay De La Torre MD [address] [place], [place] [address] Referring Physician Family Medicine 07/18/24 documented as of this encounter
--- OUTSIDE RECORDS SUMMARY | 2025-02-24 23:54 | XMS_ITS | Encounter Summary ---
Author Organization [facility] Address [address] [place] [address] Care Team Providers Care Curb Worker Name Role Phone Manuel Klein MD Unavailable [phone] Manuel Klein MD Primary Care Provider [phone] Manuel Klein MD Unavailable [phone] Source Comments In the event this [...] [facility] [address] [place] [address] Christie Phan MD [address] [place] [address] Cymbalta Social History Tobacco Use [...] N ot on file 08/09/2020 Data from: https://www.neighborhoodatlas.medicine.[facility]/. Last address used for calculation Not on [...] Description 03/08/2025 2:00 PM EDT [facility] Center Hematology/Oncology [address] [facility] [place] [address] BENLYSTA - 03/21/2025 9:00 AM EDT Office Visit [facility] [address] [place] [address] [place] [address] 4 week follow up IVIG - pt to see MASON for this appt per [facility] 03/21/2025 9:20 AM EDT Visit (SP) Office Hematology/Oncology [address] [facility] [place] [address] Jose Cho MD [address] [facility] [place] [address] 4 week follow up IVIG - pt to see MASON for this appt per [facility] 03/21/2025 9:40 AM EDT Infusion Center Hematology/Oncology [address] [facility] [place] [address] Gabbi, Chair [address] [facility] [place] [address] 4 week follow up IVIG - pt to see MASON for this appt per [facility] 04/05/2025 2:00 PM EST Infusion Center Hematology/Oncology [address] [facility] [place] [address] BENLYSTA - 05/03/2025 2:00 PM EST Infusion Center Hematology/Oncology [address] [facility] [place] [address] BENLYSTA - documented as of this encounter Visit Diagnoses Not on filedocumented in this encounter Care Teams Curb Worker Relationship Specialty Start Date End Date Manuel Klein MD PCP - General Family Medicine 02/27/22 Manuel Klein MD Referring Family Medicine 02/12/22 Manuel Klein MD [address] [place] [address] Referring Family Medicine 07/06/24 documented as of this encounter
--- OUTSIDE RECORDS SUMMARY | 2025-02-24 23:54 | XMS_ITS | Encounter Summary ---
Author Organization [facility] Address [address] [place] [address] Phone Care Team Providers Care Spanish Speaking Nanny Name Role Phone MitaliMichelle DRILLER MACHINE-MILK DELIVERY DRIVER Unavailable [phone] Kenneth Patel MD Unavailable [phone] Gay De La Torre DRILLER MACHINE-MILK DELIVERY DRIVER Primary Care Provider Encounter Details Date Type Department Care Team (Late st Contact Info) Description 12/11/2023 Scanned Document [facility] [address] [place] [phone] Scanning, Generic Provider Social History Tobacco Use [...] Office Visit [facility] 703 [facility] [address] [place] [address] Lois Arguelles MD [address] [place] [address] documented as of this encounter [...] documented as of this encounter Care Teams Spanish Speaking Nanny Relationship Specialty Start Date End Date Gay De La Torre, DRILLER MACHINE-MILK DELIVERY DRIVER [address] [place] [address] PCP - General 07/13/23 Michelle Jasmine APRN-MILK DELIVERY DRIVER Nurse Practitioner Cardiology 06/08/23 Kenneth Patel MD Consulting Physician Cardiology 06/23/23 documented as of this encounter
--- OUTSIDE RECORDS SUMMARY | 2025-02-24 23:55 | XMS_ITS | Encounter Summary ---
Author Organization [facility] Address [address] [place] [address] Care Team Providers Care Scientific Specialist Name Role Phone Aime Davidson MD, Lui Nunez Primary Care Provid er Gay De La Torre(Historical) INFRASTRUCTURE MANAGER.ASPHALT SURFACE HEATER OPERATOR Primary Care Provider Unavailable Manuel Klein MD Unavailable [phone] Manuel Klein MD Primary Care Provider [phone] Manuel Klein MD Unavailable [phone] Source Comments In the event this information is protected by the Federal Confidentiality of Alcohol and Drug AbusePatient Records regulations: The Federal rules restrict any use of the information to criminally investigate or prosecute any alcohol or drug abuse patient.[facility] Encounter Details Date Type Department Care Team (Late st Contact Info) Description 12/31/2014 Get Medical Advice Internal Medicine [facility] [place] [address] Lui Salomon Jr., MD [address] [address] Medication Question (Not Renewal) Social [...] EDT [facility] Center Hematology/Oncology [address] [place] [address] [place] [address] BENLYSTA - 03/21/2025 9:00 AM EDT Office Visit [facility] [address] [facility] [place] [address] 4 week follow up IVIG - pt to see MASON for this appt per [facility] 03/21/2025 9:20 AM EDT Visit (SP) Office Hematology/Oncology [address] [facility] [place] [address] Jose Cho MD [address] [facility] [place] [address] 4 week follow up IVIG - pt to see MASON for this appt per [facility] 03/21/2025 9:40 AM EDT Infusion Center Hematology/Oncology [address] [facility] [place] [address] Be[place], Chair [address] [facility] [place] [address] 4 week follow up IVIG - pt to see MASON for this appt per [facility] 04/05/2025 2:00 PM EST Infusion Center Hematology/Oncology [address] [facility] [place] [address] BENLYSTA - 05/03/2025 2:00 PM [facility] Infusion Center Hematology/Oncology [address] [place] [address] [place] [address] BENLYSTA - documented as of this encounter Visit Diagnoses Not on filedocumented in this encounter Care Teams Scientific Specialist Relationship Specialty Start Date End Date Lui Salomon Jr., MD PCP - General Internal Medicine 05/31/14 07/08/20 Gay De La Torre(Historical), INFRASTRUCTURE MANAGER.ASPHALT SURFACE HEATER OPERATOR PCP - General Family Medicine 10/24/21 02/26/22 Manuel Klein MD PCP - General Family Medicine 02/27/22 Manuel Klein MD Referring Family Medicine 02/12/22 Manuel Klein MD [address] [id number] Referring Family Medicine 07/06/24 documented as of this encounter
--- OUTSIDE RECORDS SUMMARY | 2025-02-24 23:55 | XMS_ITS | Encounter Summary ---
Author Organization [facility] Address [address] [place] [address] Care Team Providers Care Braiding Machine Operator Name Role Phone Manuel Klein MD Unavailable [phone] Manuel Klein MD Primary Care Provider [phone] Manuel Klein MD Unavailable [phone] Source Comments In the event this information is protected by the Federal Confidentiality of Alcohol and Drug AbusePatient Records regulations: The Federal rules restrict any use of the information to criminally investigate or prosecute any alcohol or drug abuse patient.[facility] Encounter Details Date Type Department Care Team (Late st Contact Info) Description 02/23/2024 Patient Msg Rheumatology [address] [place], [place] [id number] Sandra Park MD [address] [place] [address] Appointment Request Social History Tobacco [...] is lower risk 4 09/24/2022 Data from: https://www.neighborhoodatlas.medicine.[facility]/. Last address used for calculation [address] 09/24/2022 Comments No Sex and Gender [...] [facility] Hematology/Oncology [address] [place] [address] BENLYSTA - 03/21/2025 9:00 AM EDT Office Visit [facility] [address] [place] [address] [place] [address] 4 week follow up IVIG - pt to see MASON for this appt per [facility] 03/21/2025 9:20 AM EDT Visit (SP) Office Hematology/Oncology [address] [place] [address] Jose Cho MD [address] [place] [address] 4 week follow up IVIG - pt to see MASON for this appt per [facility] 03/21/2025 9:40 AM EDT Infusion Center Hematology/Oncology [address] [place] [address] Gabbi, Chair [address] [place] [address] 4 week follow up IVIG - pt to see MASON for this appt per [facility] 04/05/2025 2:00 PM EST Infusion Center Hematology/Oncology [address] [facility] [place] [address] BENLYSTA - 05/03/2025 2:00 PM [facility] Infusion Center Hematology/Oncology [address] [place] [address] BENLYSTA - documented as of this encounter Visit Diagnoses Not on filedocumented in this encounter Care Teams Braiding Machine Operator Relationship Specialty Start Date End Date Manuel Klein MD PCP - General Family Medicine 02/27/22 Manuel Klein MD Referring Family Medicine 02/12/22 Manuel Klein MD [address] [place] [place] [address] Referring Family Medicine 07/06/24 documented as of this encounter
--- OUTSIDE RECORDS SUMMARY | 2025-02-24 23:55 | XMS_ITS | Clinical Summary ---
Author Organization [facility] Address [address] [place] [address] Care Team Providers Care Radio Sportscaster Name Role Phone Manuel Klein MD Unavailable [phone] Manuel Klein MD Primary Care Provider [phone] Manuel Klein MD Unavailable [phone] Allergies Active Allergy Reactions Criticality Noted [...] erythematosus with other organ involvement (HCC),Encounter for 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 TAKE 3 TABLETS [...] without gangrene 02/04/2023 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 terminal carman 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 02/04 Excessive [...] AM EDT Infusion Center Hematology/Oncolo gy [address] [place] [address] Frequent infections (Primary Dx); Hypogammaglobulinemia (HCC); Bilateral leg weakness; Discoid lupus erythematosus 02/21/2025 9:00 AM EDT Visit (SP) Office Hematology/Oncolo gy [address] [place], [place] [address]RY [facility] [place] [place] [address] Fara Lopez APRN.WELCOME CENTER ATTENDANT Frequent infections (Primary Dx); Hypogammaglobulinemia (HCC); Bilateral leg weakness; Discoid lupus erythematosus; Vitamin B12 deficiency; Shortness of breath; Other iron deficiency anemia; Malaise and fatigue 02/21/2025 Get Medical Advice Hematology/Oncolo [address] [place] [address] Provider, Ccf Blood work 02/21/2025 Telephone Cancer Appts [address] [place] [address] Fara Lopez APRN.WELCOME CENTER ATTENDANT Results 02/12/2025 Telephone Hematology/Oncolo gy [address] [place] [address] [place] [address] Enma Hamm RN Lab Orders 02/08/2025 2:00 PM EDT Infusion Center Hematology/Oncolo gy [address] [place] [address] [place] [address] Elevated sed rate (Primary Dx); Megaloblastic anemia due to vitamin B12 deficiency; Other systemic lupus erythematosus with other organ involvement (HCC) 02/06/2025 Orders Only Hematology/Oncolo gy [address] [place] [address] [place] [address] Jose Cho MD 01/24/2025 9:00 AM EDT Infusion Center Hematology/Oncolo gy [address] [place] [address] [place] [address] Frequent infections (Primary Dx); Hypogammaglobulinemia (HCC); Bilateral leg weakness; Discoid lupus erythematosus; Elevated sed rate; Megaloblastic anemia due to vitamin B12 deficiency 01/24/2025 Orders Only Hematology/Oncolo gy [address] [place] [address] [place] [address] Jose Cho MD Frequent infections (Primary Dx); Hypogammaglobulinemia (HCC); Bilateral leg weakness; Discoid lupus erythematosus 01/23/2025 Refill Rheumatology [address] [address] Sandra Park MD Refill Request 01/22/2025 Travel 01/18/2025 Telephone Rheumatology [address] [place] [address] Sandra Park MD Results 01/11/2025 2:00 PM EDT Infusion Center Hematology/Oncolo gy [address] [place] [address] Other systemic lupus erythematosus with other organ involvement (HCC) (Primary Dx); Elevated LFTs; Anemia of chronic disease; Elevated sed rate; Elevated C-reactive protein (CRP); Vitamin D deficiency; Vitamin B12 deficiency; Screening-pulmonary TB 12/27/2024 9:00 AM EDT Infusion Center Hematology/Oncolo gy [address] [place] [address] Frequent infections (Primary Dx); Hypogammaglobulinemia (HCC); Bilateral leg weakness; Discoid lupus erythematosus; Elevated sed rate; Megaloblastic anemia due to vitamin B12 deficiency 12/20/2024 Orders Only Hematology/Oncolo gy [address] [place] [address] Neda Hill PAJuliusC 12/19/2024 Orders Only Hematology/Oncolo gy [address] [place] [address] Neda Hill PA-C 12/19/2024 Orders Only Hematology/Oncolo gy [address] [place] [address] Rebekah Rojas APRN.WELCOME CENTER ATTENDANT 12/14/2024 2:00 PM EDT Infusion Center Hematology/Oncolo gy [address] [place] [address] Other systemic lupus erythematosus with other organ involvement (HCC) (Primary Dx) 12/14/2024 Abstract Neurology [address] [place] [address] [facility] CMN 12/14/2024 Orders Only Rheumatology [address] [place] [address] Sandra Park MD 12/12/2024 Travel 11/30/2024 Results Follow-Up Hematology/Oncolo gy [address] [place] [address] [place] [address] Fara Lopez APRN.WELCOME CENTER ATTENDANT Results 11/29/2024 9:30 AM EDT Infusion Center Hematology/Oncolo gy [address] [place] [address] [place] [address] Elevated sed rate (Primary Dx); Megaloblastic anemia due to vitamin B12 deficiency; Frequent infections; Hypogammaglobulinemia (HCC); Bilateral leg weakness; Discoid lupus erythematosus 11/29/2024 9:00 AM EDT Visit (SP) Office Hematology/Oncolo gy [address] [place] [address] [place] [address] Fara Lopez APRN.CNP Hypogammaglobulinemia (HCC) (Primary Dx); Vitamin B12 deficiency; Other iron deficiency anemia; Malaise and fatigue; Shortness of breath; Other specified disorders of breast; Pre-diabetes; Gastro-esophageal reflux disease without esophagitis 11/29/2024 Orders Only Hematology/Oncolo gy [address] [place] [address] [place] [address] Fara Lopez APRN.CNP Frequent infections; Hypogammaglobulinemia (HCC); Bilateral leg weakness; Discoid lupus erythematosus 11/29/2024 Travel from Last 3 Months Immunizations Immunization Administration Dates Next Due COVID-19 vaccine, age 12+ yr ([employer] [facility]) 02/23/2023 Family History Medical History Relation Comments [...] lower risk 4 09/24/2022 Data from: https://www.neighborhoodatlas.[facility]/. Last address used for calculation [address] 09/24/2022 Comments No Sex and Gender [...] 03/08/2025 2:00 PM EDT Infusion Center Hematology/Oncology [facility] [place] [address] BENLYSTA - 03/21/2025 9:00 AM EDT Office Visit [facility] Laboratory [address] [place] [address] 4 week follow up IVIG - pt to see MASON for this appt per Fara 03/21/2025 9:20 AM EDT Visit (SP) Office Hematology/Oncology [address] [place] [address] Jose Cho MD [address] [place] [address] 4 week follow up IVIG - pt to see MASON for this appt per Fara 03/21/2025 9:40 AM EDT Infusion Center Hematology/Oncology [facility] [place] [address] Gabbi, Chair [address] [place] [address] [place] [address] 4 week follow up IVIG - pt to see MASON for this appt per Fara 04/05/2025 2:00 PM [facility] Infusion Center Hematology/Oncology [address] [place] [address] BENLYSTA - 05/03/2025 2:00 PM [facility] Infusion Center Hematology/Oncology [address] [place] [address] BENLYSTA - Health Maintenance Due Date Last [...] - 1,245 pg/mL 02/21/2025 10:05 PM EDT [facility] Blood BLOOD SPECIMEN / Unknown Venipuncture / Unknown 02/21/2025 8:51 AM EDT 02/21/2025 8:51 AM EDT us Fara Lopez HAND CLOTH CUTTER.WELCOME CENTER ATTENDANT LABORATORY Final Resul t [facility] [address] [facility] [address] [address], * (ABNORMAL) IRON AND TIBC (02/21/2025 8:51 AM EDT) Only the most recent of2 resultswithin the time period is included. Iron 156 41 - 186 ug/dL 02/21/2025 9:46 PM EDT [facility] TIBC 443(H) 232 - 386 ug/dL 02/21/2025 9:46 PM EDT [facility] Transferrin Saturation 35.2 15.0 - 57.0 % 02/21/2025 9:46 PM EDT [facility] Blood BLOOD SPECIMEN / Unknown Venipuncture / Unknown 02/21/2025 8:51 AM EDT 02/21/2025 8:51 AM EDT Fara Lopez HAND CLOTH CUTTER.[facility] LABORATORY Final Resul t Performing Organization Address [facility] de Phone Number [facility] [address] [address], [place] * (ABNORMAL) IMMUNOGLOBULINS,IGG,IGA,IGM (02/21/2025 8:51 AM EDT) Only the most recent of2 resultswithin the time period is included. IgG 610(L) 700 - 1,600 mg/dL 02/21/2025 6:21 PM EDT [facility] IgA 184 70 - 400 mg/dL 02/21/2025 6:21 PM EDT [facility] IgM 454(H) 40 - 230 mg/dL 02/21/2025 6:21 PM EDT [facility] Blood BLOOD SPECIMEN / Unknown Venipuncture / Unknown 02/21/2025 8:51 AM EDT 02/21/2025 8:51 AM EDT Fara Lopez HAND CLOTH CUTTER.[facility] LABOR[facility] Final Resul t Performing Organization Address [facility] Co de Phone Number [facility] [address] [place] [address], [place] * FOLATE, SERUM (02/21/2025 8:51 AM EDT) Only the most recent of2 resultswithin the time period is included. [facility] Folate >20.0 >4.7 ng/mL 02/21/2025 10:05 PM EDT [facility] Comment: A result of > 20 ng/mL is not necessarily indicative of a pathologic or treatable condition: it reflects a limitation of the test methodology. Assay reference range: 4.8 to 24.2 ng/mL. Suitable for detection of folate deficiency. Reference: Folate III (Folate III) [package insert V 1.0 Yoruba]. [place], [place], [place]: March 2015. Blood BLOOD SPECIMEN / Unknown Venipuncture / Unknown 02/21/2025 8:51 AM EDT 02/21/2025 8:51 AM EDT Fara Lopez HAND CLOTH CUTTER.[facility] Final Resul t Performing Organization Address City/[facility]/ZIP Co de Phone Number [facility] [address] [place] [address], [place] * FERRITIN (02/21/2025 8:51 AM EDT) Only the most recent of2 resultswithin the time period is included. [facility] Ferritin 83.6 14.7 - 205.1 ng/mL 02/21/2025 10:05 PM EDT [facility] Blood BLOOD SPECIMEN / Unknown Venipuncture / Unknown 02/21/2025 8:51 AM EDT 02/21/2025 8:51 AM EDT Fara Lopez HAND CLOTH CUTTER.[facility] LAB[facility] Final Resul t [facility] [address] [place] [address], [place] * (ABNORMAL) COMPREHENSIVE METABOLIC PANEL (02/21/2025 8:51 AM EDT) Only the most recent of3 resultswithin the time period is included. [facility] Protein, Total 7.6 6.3 - 8.0 g/dL 02/21/2025 9:45 AM EDT [facility] Albumin 4.3 3.9 - 4.9 g/dL 02/21/2025 9:45 AM T [facility] Calcium, Total 10.2 8.5 - 10.2 mg/dL 02/21/2025 9:45 AM EDT [facility] Bilirubin, Total 0.3 0.2 - 1.3 mg/dL 02/21/2025 9:45 AM [facility] Alkaline Phosphatase 83 34 - 123 U/L 02/21/2025 9:45 AM T [facility] AST 20 13 - 35 U/L 02/21/2025 9:45 AM [facility] ALT 49(H) 7 - 38 U/L 02/21/2025 9:45 AM [facility] Glucose 248(H) 74 - 99 mg/dL 02/21/2025 9:45 AM [facility] Comment: The [place] Diabetes Association (ADA) provides guidance for cutoff [...] Standards of Medical Care in Diabetes 2016, [place] [employer] Association. Diabetes Care. 2016.39(Suppl 1). BUN 16 7 - 21 mg/dL 02/21/2025 9:45 AM [facility] Creatinine 0.49(L) 0.58 - 0.96 mg/dL 02/21/2025 9:45 AM [facility] Sodium 138 136 - 144 mmol/L 02/21/2025 9:45 AM [facility] Potassium 4.1 3.7 - 5.1 mmol/L 02/21/2025 9:45 AM EDT [facility] Chloride 101 98 - 107 mmol/L 02/21/2025 9:45 AM EDT [facility] CO2 20(L) 22 - 30 mmol/L 02/21/2025 9:45 AM EDT [facility] Anion Gap 17(H) 8 - 15 mmol/L 02/21/2025 9:45 AM EDT [facility] Estimated Glomerular Filtration Rate 119 >=60 mL/min/1. 73m 02/21/2025 9:45 AM EDT [facility] Comment:Estimated Glomerular Filtration Rate (eGFR) is [...] 02/21/2025 8:51 AM EDT us Fara Lopez APRN.[facility]AT[facility] Final Resul t [facility] [address] [place] [address] * (ABNORMAL) COMPLETE BLOOD COUNT AND DIFFERENTIAL (02/21/2025 8:51 AM EDT) Only the most recent of2 resultswithin the time period is included. WBC 13.16(H) 3.70 - 11.00 k/uL 02/21/2025 8:59 AM EDT [facility] RBC 4.77 3.90 - 5.20 m/uL 02/21/2025 8:59 AM EDT [facility] Hemoglobin 15.1 11.5 - 15.5 g/dL 02/21/2025 8:59 AM EDT [facility] Hematocrit 46.0 36.0 - 46.0 % 02/21/2025 8:59 AM EDT [facility] MCV 96.4 80.0 - 100.0 fL 02/21/2025 8:59 AM EDT [facility] MCH 31.7 26.0 - 34.0 pg 02/21/2025 8:59 AM EDT [facility] MCHC 32.8 30.5 - 36.0 g/dL 02/21/2025 8:59 AM EDT [facility] RDW-CV 14.3 11.5 - 15.0 % 02/21/2025 8:59 AM EDT [facility] Platelet Count 305 150 - 400 k/uL 02/21/2025 8:59 AM EDT [facility] MPV 9.9 9.0 - 12.7 fL 02/21/2025 8:59 AM EDT [facility] Neutrophils % 75.5 % 02/21/2025 8:59 AM EDT [facility] Abs Neut 9.94(H) 1.45 - 7.50 k/uL 02/21/2025 8:59 AM EDT [facility] Lymphocytes % 14.4 % 02/21/2025 8:59 AM EDT [facility] Abs Lymph 1.89 1.00 - 4.00 k/uL 02/21/2025 8:59 AM EDT [facility] Monocytes % 7.0 % 02/21/2025 8:59 AM EDT [facility] Abs Scurry 0.92(H) <0.87 k/uL 02/21/2025 8:59 AM EDT [facility] Eosinophils % 0.8 % 02/21/2025 8:59 AM EDT [facility] Abs Eosin 0.11 <0.46 k/uL 02/21/2025 8:59 AM EDT [facility] Basophils % 0.7 % 02/21/2025 8:59 AM EDT [facility] Abs Baso 0.09 <0.11 k/uL 02/21/2025 8:59 AM EDT [facility] Immature Granulocytes % 1.6 % 02/21/2025 8:59 AM EDT [facility] Abs Immature Gran 0.21(H) <0.10 k/uL 02/21/2025 8:59 AM EDT [facility] NRBC 0.0 /100 WBC 02/21/2025 8:59 AM EDT [facility] Absolute nRBC <0.01 <0.01 k/uL 02/21/2025 8:59 AM EDT [facility] Diff Type Auto 02/21/2025 8:59 AM EDT [facility] Blood BLOOD SPECIMEN / Unknown Venipuncture / Unknown 02/21/2025 8:51 AM EDT 02/21/2025 8:51 AM EDT us Fara Lopez HAND CLOTH CUTTER.WELCOME CENTER ATTENDANT LABORATORY Final Resul t [facility] [address] [place] [address] * BLOOD TB SCREEN (01/11/2025 1:48 PM EDT) TB Nil 0.03 <=8.00 IU/mL 01/13/2025 9:22 PM EDT [facility] TB1 Ag minus Nil 0.01 <0.35 IU/mL 01/13/2025 9:22 PM EDT [facility] TB2 Ag minus Nil 0.01 <0.35 IU/mL 01/13/2025 9:22 PM EDT [facility] TB Result Negative 01/13/2025 9:22 PM EDT [facility] Mitogen minus Nil >9.97 >=0.50 IU/mL 01/13/2025 9:22 PM EDT [facility] TB Gamma Interpretation Infection with M. tuberculosis complex is unlikely. If latent tuberculosis infection is highly suspected, a negative result does not rule out the infection. Specimens from immunocompromised patients and those <5 years of age may show false negative results. In case of a contact investigation, please repeat 8-12 weeks after a known exposure. 01/13/2025 9:22 PM EDT [facility] Blood BLOOD SPECIMEN / Unknown Venipuncture / Unknown 01/11/2025 1:48 PM EDT 01/11/2025 2:06 PM EDT us Sandra Park MD LABORATORY Final Result Performing Organization Address City/[facility]/ZIP Co de Phone Number [facility] [address] [place] [address], [place] * VITAMIN D 25 HYDROXY (01/11/2025 1:48 PM EDT) Vitamin D 25 Hydroxy 32.2 31.0 - 80.0 ng/mL 01/12/2025 1:27 PM EDT [facility] Blood BLOOD SPECIMEN / Unknown Venipuncture / Unknown 01/11/2025 1:48 PM EDT 01/11/2025 2:06 PM EDT us Sandra Park MD LABORATORY Final Result Performing Organization Address City/[facility] Co de Phone Number [facility] [address] [place] [phone], [place] * (ABNORMAL) SEDIMENTATION RATE, WESTERGREN (01/11/2025 1:48 PM EDT) Sed Rate, Westergren 34(H) 0 - 20 mm/hr 01/12/2025 1:02 AM EDT [facility] Blood BLOOD SPECIMEN / Unknown Venipuncture / Unknown 01/11/2025 1:48 PM EDT 01/11/2025 2:06 PM EDT us Sandra Park MD LABORATORY Final Result Performing Organization Address City/[facility]/ZIP Co de Phone Number [facility] [address] [place] [phone], [place] * HEPATITIS B SURFACE ANTIGEN (01/11/2025 1:48 PM EDT) HBsAg Negative Negative 01/12/2025 11:45 AM EDT [facility] Blood BLOOD SPECIMEN / Unknown Venipuncture / Unknown 01/11/2025 1:48 PM EDT 01/11/2025 2:06 PM EDT Sandra Park MD LABORATORY Final Result Performing Organization Address [facility]/ZIP Co de Phone Number [facility] [address] [place] [phone], [place] * HEPATITIS B SURFACE ANTIBODY (01/11/2025 1:48 PM EDT) Hep B Surface Ab, Qual Positive 01/12/2025 11:44 AM EDT [facility] Comment:Consistent with sero logical evidence of immunity to Hepatitis B Virus. Hep B Surface Ab Quant 177.77 mIU/mL 01/12/2025 11:44 AM EDT [facility] Comment: <8 mIU/mL: No serological [...] MD LABORATORY Final Result Performing Organization Address City/[facility]/ZIP Co de Phone Number [facility] [address] [place] [phone], [place] * HEPATITIS B CORE ANTIBODY TOTAL (01/11/2025 1:48 PM EDT) Hepatitis B Core Ab, Total Negative Negative 01/12/2025 11:47 AM EDT [facility] Comment:No evidence of curre nt or past infection with Hepatitis B virus. Should recent infection be suspected, repeat testing may be considered 3-4 weeks after this draw. Blood BLOOD SPECIMEN / Unknown Venipuncture / Unknown 01/11/2025 1:48 PM EDT 01/11/2025 2:06 PM EDT us Sandra Park MD LABORATORY Final Result [facility] [address] [facility] [address] [place] [address], * (ABNORMAL) COMPLETE BLOOD COUNT (01/11/2025 1:48 PM EDT) WBC 12.61(H) 3.70 - 11.00 k/uL 01/11/2025 2:10 PM EDT [facility] RBC 4.29 3.90 - 5.20 m/uL 01/11/2025 2:10 PM EDT [facility] Hemoglobin 13.8 11.5 - 15.5 g/dL 01/11/2025 2:10 PM EDT [facility] Hematocrit 41.5 36.0 - 46.0 % 01/11/2025 2:10 PM EDT [facility] MCV 96.7 80.0 - 100.0 fL 01/11/2025 2:10 PM EDT [facility] MCH 32.2 26.0 - 34.0 pg 01/11/2025 2:10 PM EDT [facility] MCHC 33.3 30.5 - 36.0 g/dL 01/11/2025 2:10 PM EDT [facility] RDW-CV 14.5 11.5 - 15.0 % 01/11/2025 2:10 PM EDT [facility] Platelet Count 265 150 - 400 k/uL 01/11/2025 2:10 PM EDT [facility] MPV 10.6 9.0 - 12.7 fL 01/11/2025 2:10 PM EDT [facility] Absolute nRBC <0.01 <0.01 k/uL 01/11/2025 2:10 PM EDT [facility] Blood BLOOD SPECIMEN / Unknown Venipuncture / Unknown 01/11/2025 1:48 PM EDT 01/11/2025 2:06 PM EDT us Sandra Park MD LABORATORY Final Result [facility] [address] [place] [address] * C-REACTIVE PROTEIN (01/11/2025 1:48 PM EDT) [facility] CRP <0.3 <0.9 mg/dL 01/12/2025 3:28 AM EDT [facility] Blood BLOOD SPECIMEN / Unknown Venipuncture / Unknown 01/11/2025 1:48 PM EDT 01/11/2025 2:06 PM EDT us Sandra Park MD LABORATORY Final Result Performing Organization Address City/[facility]/ZIP Co de Phone Number [facility] [address] [place] [address], * HEPATITIS C ANTIBODY IA WITH CONFIRMATION (01/11/2025 1:48 PM EDT) Pathologist [facility] Hep C Antibody IA Negative Negative 01/12/2025 11:34 AM EDT [facility] Comment:The result suggests no evidence of infection with Hepatitis C virus. Should recent infection be suspected, repeat testing may be considered 4-6 weeks after this draw. Blood BLOOD SPECIMEN / Unknown Venipuncture / Unknown 01/11/2025 1:48 PM EDT 01/11/2025 2:06 PM EDT us Sandra Park MD LABORATORY Final Result [facility] [address] [facility] [place] [phone], [place] from Last 3 Months Insurance Member Subscriber Plan / Payer (Ef fective 2022-Present) Name:Ariadna Paniagua Relation to Subscriber:Self Name:Ariadna Paniagua Payer ID:[id number] (NAIC) Group ID:[id number] Type:Medicaid Address: [place] [id number] Care Teams Radio Sportscaster Relationship Specialty Start Date End Date Manuel Klein MD PCP - General Family Medicine 02/27/22 Manuel Klein MD Referring Family Medicine 02/12/22 Manuel Klein MD [address] [place] [id number] Referring Family Medicine 07/06/24
--- OUTSIDE RECORDS SUMMARY | 2025-02-24 23:55 | XMS_ITS | Encounter Summary ---
Author Organization [facility] Address [address] [place] [address] Care Team Providers Care Director Of Primary Name Role Phone Aime Davidson MD, Lui Nunez Primary Care Provid er Gay De La Torre(Historical) WALKING DRAGLINE OPERATOR.QA AUDITOR Primary Care Provider Unavailable Manuel Klein MD Unavailable [phone] Manuel Klein MD Primary Care Provider [phone] Manuel Klein MD Unavailable [phone] Source Comments In the event this information is protected by the Federal Confidentiality of Alcohol and Drug AbusePatient Records regulations: The Federal rules restrict any use of the information to criminally investigate or prosecute any alcohol or drug abuse patient.[facility] Encounter Details Date Type Department Care Team (Late st Contact Info) Description 05/01/2015 Get Medical Advice Internal Medicine Marylin [facility] [place] [address] Lui Salomon Jr., MD [address] [address] RE: Medication Question (Not Renewal) [...] Info) Description 03/08/2025 2:00 PM EDT [facility] Hematology/Oncology [address] [place] [address] BENLYSTA - 03/21/2025 9:00 AM EDT Office Visit [facility] Laboratory [facility] [place] [address] 4 week follow up IVIG - pt to see MASON for this appt per Fara 03/21/2025 9:20 AM EDT Visit (SP) Office Hematology/Oncology [facility] [place] [address] Jose Cho MD [address] [place] [address] 4 week follow up IVIG - pt to see MASON for this appt per Fara 03/21/2025 9:40 AM EDT [facility] Hematology/Oncology [address] [place] [address] Gabbi, Chair [address] [place] [address] 4 week follow up IVIG - pt to see MASON for this appt per Fara 04/05/2025 2:00 PM EST Infusion Center Hematology/Oncology [address] [place] [address] BENLYSTA - 05/03/2025 2:00 PM EST Infusion Center Hematology/Oncology [address] [place] [address] [place] [address] BENLYSTA - documented as of this encounter Visit Diagnoses Not on filedocumented in this encounter Care Teams Director Of Primary Relationship Specialty Start Date End Date Lui Salomon Jr., MD PCP - General Internal Medicine 05/31/14 07/08/20 Gay De La Torre(Historical), WALKING DRAGLINE OPERATOR.QA AUDITOR PCP - General Family Medicine 10/24/21 02/26/22 Manuel Klein MD PCP - General Family Medicine 02/27/22 Manuel Klein MD Referring Family Medicine 02/12/22 Manuel Klein MD [address] [place] [place] [address] Referring Family Medicine 07/06/24 documented as of this encounter
--- OUTSIDE RECORDS SUMMARY | 2025-02-24 23:55 | XMS_ITS | Encounter Summary ---
Author Organization [facility] Address [address] [place] [address] Care Team Providers Care Equipment Cleaner And Tester Name Role Phone Aime Davidson MD, Lui Nunez Primary Care Provid er Gay De La Torre(Historical) ENTERPRISE INTEGRATION DEVELOPER.TRANSIT VEHICLE INSPECTOR Primary Care Provider Unavailable Manuel Klein MD Unavailable [phone] Manuel Klein MD Primary Care Provider [phone] Manuel Klein MD Unavailable [phone] Source Comments In the event this [...] Patient Msg Internal Medicine Marylin [address] [place] [address] Lui Salomon Jr., MD [address] [place] [address] Appointment Cancellation Request Social History [...] 2:00 PM EDT [facility]ematology[facility]Oncology [address] [place] [address] BENLYSTA - 03/21/2025 9:00 AM EDT Office Visit [facility] [place] [address] 4 week follow up IVIG - pt to see MASON for this appt per Fara 03/21/2025 9:20 AM EDT Visit (SP) Office Hematology/Oncology [facility] [place] [address] Jose Cho MD [address] [facility] [place] [address] 4 week follow up IVIG - pt to see MASON for this appt per Fara 03/21/2025 9:40 AM EDT Infusion Center Hematology/Oncology [address] [facility] [place] [address] Gabbi, Chair [address] [facility] [place] [address] 4 week follow up IVIG - pt to see MASON for this appt per Fara 04/05/2025 2:00 PM EST Infusion Center Hematology/Oncology [address] [facility] [place] [address] BENLYSTA - 05/03/2025 2:00 PM EST Infusion Center Hematology/Oncology [address] [facility] [place] [address] BENLYSTA - documented as of this encounter Visit Diagnoses Not on filedocumented in this encounter Care Teams Equipment Cleaner And Tester Relationship Specialty Start Date End Date Lui Salomon Jr., MD PCP - General Internal Medicine 05/31/14 07/08/20 Gay De La Torre(Historical), ENTERPRISE INTEGRATION DEVELOPER.TRANSIT VEHICLE INSPECTOR PCP - General Family Medicine 10/24/21 02/26/22 Manuel Klein MD PCP - General Family Medicine 02/27/22 Manuel Klein MD Referring Family Medicine 02/12/22 Manuel Klein MD [address] [place] [address] Referring Family Medicine 07/06/24 documented as of this encounter
--- OUTSIDE RECORDS SUMMARY | 2025-02-24 23:55 | XMS_ITS | Encounter Summary ---
Author Organization [facility] Address [address] [place] [address] Care Team Providers Care Suture Gauger Name Role Phone Manuel Klein MD Unavailable [phone] Manuel Klein MD Primary Care Provider [phone] Manuel Klein MD Unavailable [phone] Source Comments In the event this information is protected by the Federal Confidentiality of Alcohol and Drug AbusePatient Records regulations: The Federal rules restrict any use of the information to criminally investigate or prosecute any alcohol or drug abuse patient.[facility] Encounter Details Date Type Department Care Team (Late st Contact Info) Description 12/24/2022 Patient Msg Allergy [address] [place] [phone] Misty Nelson MD [facility] [place] [address] Request an Appointment Social History [...] is lower risk 4 09/24/2022 Data from: https://www.neighborhoodatlas.medicine.[facility]/. Last address used for calculation [address] 09/24/2022 Comments No Sex and Gender [...] EDT [facility] Hematology[facility]Oncology [address] [place] [address] BENLYSTA - 03/21/2025 9:00 AM EDT Office Visit [facility] [place] [address] 4 week follow up IVIG - pt to see MASON for this appt per [facility] 03/21/2025 9:20 AM EDT Visit (SP) Office Hematology/Oncology [address] [place] [address] Jose Cho MD [address] [place] [address] 4 week follow up IVIG - pt to see MASON for this appt per [facility] 03/21/2025 9:40 AM EDT Infusion Center Hematology/Oncology [address] [place] [address] Gabbi, Chair [address] [place] [address] 4 week follow up IVIG - pt to see MASON for this appt per [facility] 04/05/2025 2:00 PM EST [facility]fusion Center Hematology/Oncology [address] [place] [address] BENLYSTA - 05/03/2025 2:00 PM EST Infusion Center Hematology/Oncology [address] [place] [address] BENLYSTA - documented as of this encounter Visit Diagnoses Not on filedocumented in this encounter Care Teams Suture Gauger Relationship Specialty Start Date End Date Manuel Klein MD PCP - General Family Medicine 02/27/22 Manuel Klein MD Referring Family Medicine 02/12/22 Manuel Klein MD [address] [place] [address] Referring Family Medicine 07/06/24 documented as of this encounter
--- OUTSIDE RECORDS SUMMARY | 2025-02-24 23:55 | XMS_ITS | Encounter Summary ---
Author Organization [facility] Address [address] [place] [address] Care Team Providers Care Environmental Scientist Name Role Phone Manuel Klein MD Unavailable [phone] Manuel Klein MD Primary Care Provider +-[phone] Manuel Klein MD Unavailable [phone] Source Comments In the event this information is protected by the Federal Confidentiality of Alcohol and Drug AbusePatient Records regulations: The Federal rules restrict any use of the information to criminally investigate or prosecute any alcohol or drug abuse patient.[facility] Reason for Visit * Reason Comments Lab Orders Encounter Details Date Type Department Care Team (Late st Contact Info) Description 02/12/2025 Telephone Hematology/Oncology [address] [place] [address] [place] [address] Enma Hamm, programming coordinator Orders Social History Tobacco Use Types Packs/Day [...] is lower risk 4 09/24/2022 Data from: https://www.neighborhoodatlas.medicine.[facility]/. Last address used for calculation [address] 09/24/2022 Comments No Sex and Gender [...] Contact Info) Description 03/08/2025 2:00 PM EDT [facility] Hematology/Oncology [address] [place] [address] [place] [address] BENLYSTA - 03/21/2025 9:00 AM EDT Office Visit [facility] [address] [place] [address] 4 week follow up IVIG - pt to see MASON for this appt per Fara 03/21/2025 9:20 AM EDT Visit (SP) Office Hematology/Oncology [address] [place] [address] Jose Cho MD [address] [place] [address] 4 week follow up IVIG - pt to see MASON for this appt per [facility] 03/21/2025 9:40 AM EDT Infusion Center Hematology/Oncology [address] [place] [address] Gabbi, Chair [address] [place] [address] 4 week follow up IVIG - pt to see MASON for this appt per F[facility] 04/05/2025 2:00 PM EST [facility]fusion Center Hematology/Oncology [address] [place] [address] BENLYSTA - 05/03/2025 2:00 PM [facility] Infusion Center Hematology/Oncology [address] [place] [address] BENLYSTA - documented as of this encounter Results * (ABNORMAL) IMMUNOGLOBULINS,IGG,IGA,IGM (02/21/2025 8:51 AM EDT) Pathologist [facility] IgG 610(L) 700 - 1,600 mg/dL 02/21/2025 6:21 PM EDT [facility] IgA 184 70 - 400 mg/dL 02/21/2025 6:21 PM EDT [facility] IgM 454(H) 40 - 230 mg/dL 02/21/2025 6:21 PM EDT [facility] Blood BLOOD SPECIMEN / Unknown Venipuncture / Unknown 02/21/2025 8:51 AM EDT 02/21/2025 8:51 AM EDT us Fara Lopez WASTE MACHINE OPERATOR.[facility] Final Resul t [facility] [address] [id number], [place] * FOLATE, SERUM (02/21/2025 8:51 AM EDT) Folate >20.0 >4.7 ng/mL 02/21/2025 10:05 PM EDT [facility] Comment: A result of > 20 ng/mL is not necessarily indicative of a pathologic or treatable condition: it reflects a limitation of the test methodology. Assay reference range: 4.8 to 24.2 ng/mL. Suitable for detection of folate deficiency. Reference: Folate III (Folate III) [package insert V 1.0 [place]]. [facility], [place], [place]: March 2015. Blood BLOOD SPECIMEN / Unknown Venipuncture / Unknown 02/21/2025 8:51 AM EDT 02/21/2025 8:51 AM EDT us Fara Lopez WASTE MACHINE OPERATOR.[facility] Final Resul t Performing Organization Address City/[facility]/ZIP Co de Phone Number [facility] [address] [id number], [place] * VITAMIN B12 (02/21/2025 8:51 AM EDT) Vitamin B12 694 232 - 1,245 pg/mL 02/21/2025 10:05 PM EDT [facility] Blood BLOOD SPECIMEN / Unknown Venipuncture / Unknown 02/21/2025 8:51 AM EDT 02/21/2025 8:51 AM EDT us Fara Lopez WASTE MACHINE OPERATOR.[facility] Final Resul t [facility] [address] [id number], [place] * FERRITIN (02/21/2025 8:51 AM EDT) Ferritin 83.6 14.7 - 205.1 ng/mL 02/21/2025 10:05 PM EDT [facility] Blood BLOOD SPECIMEN / Unknown Venipuncture / Unknown 02/21/2025 8:51 AM EDT 02/21/2025 8:51 AM EDT Fara Lopez WASTE MACHINE OPERATOR.[facility] Final Resul t Performing Organization Address City/[facility] Co de Phone Number [facility] [address] [place] [address], [place] * (ABNORMAL) IRON AND TIBC (02/21/2025 8:51 AM EDT) Pathologist [facility] Iron 156 41 - 186 ug/dL 02/21/2025 9:46 PM EDT [facility] TIBC 443(H) 232 - 386 ug/dL 02/21/2025 9:46 PM EDT [facility] Transferrin Saturation 35.2 15.0 - 57.0 % 02/21/2025 9:46 PM EDT [facility] Blood BLOOD SPECIMEN / Unknown Venipuncture / Unknown 02/21/2025 8:51 AM EDT 02/21/2025 8:51 AM EDT Fara Lopez APRN.[facility] Final Resul t Performing Organization Address City/[facility]/ZIP Co de Phone Number [facility] [address] [place] [address], [place] * (ABNORMAL) COMPREHENSIVE METABOLIC PANEL (02/21/2025 8:51 AM EDT) Protein, Total 7.6 6.3 - 8.0 g/dL 02/21/2025 9:45 AM EDT [facility] Albumin 4.3 3.9 - 4.9 g/dL 02/21/2025 9:45 AM EDT [facility] Calcium, Total 10.2 8.5 - 10.2 mg/dL 02/21/2025 9:45 AM [facility] Bilirubin, Total 0.3 0.2 - 1.3 mg/dL 02/21/2025 9:45 AM [facility] Alkaline Phosphatase 83 34 - 123 U/L 02/21/2025 9:45 AM [facility] AST 20 13 - 35 U/L 02/21/2025 9:45 AM [facility] ALT 49(H) 7 - 38 U/L 02/21/2025 9:45 AM [facility] Glucose 248(H) 74 - 99 mg/dL 02/21/2025 9:45 AM [facility] Comment: The [place] Diabetes Association (ADA) provides guidance for cutoff [...] Standards of Medical Care in Diabetes 2016, [place] Diabetes Association. Diabetes Care. 2016.39(Suppl 1). BUN 16 7 - 21 mg/dL 02/21/2025 9:45 AM [facility] Creatinine 0.49(L) 0.58 - 0.96 mg/dL 02/21/2025 9:45 AM [facility] Sodium 138 136 - 144 mmol/L 02/21/2025 9:45 AM [facility] Potassium 4.1 3.7 - 5.1 mmol/L 02/21/2025 9:45 AM [facility] Chloride 101 98 - 107 mmol/L 02/21/2025 9:45 AM [facility] CO2 20(L) 22 - 30 mmol/L 02/21/2025 9:45 AM EDT [facility] Anion Gap 17(H) 8 - 15 mmol/L 02/21/2025 9:45 AM EDT [facility] Estimated Glomerular Filtration Rate 119 >=60 mL/min/1. 73m 02/21/2025 9:45 AM EDT [facility] Comment:Estimated Glomerular Filtration Rate [...] 02/21/2025 8:51 AM EDT us Fara Lopez WASTE MACHINE OPERATOR.[facility] [facility] Final Resul t [facility] [address] [place] [address] * (ABNORMAL) COMPLETE BLOOD COUNT AND DIFFERENTIAL (02/21/2025 8:51 AM EDT) WBC 13.16(H) 3.70 - 11.00 k/uL 02/21/2025 8:59 AM EDT [facility] RBC 4.77 3.90 - 5.20 m/uL 02/21/2025 8:59 AM EDT [facility] Hemoglobin 15.1 11.5 - 15.5 g/dL 02/21/2025 8:59 AM EDT [facility] Hematocrit 46.0 36.0 - 46.0 % 02/21/2025 8:59 AM EDT [facility] MCV 96.4 80.0 - 100.0 fL 02/21/2025 8:59 AM EDT [facility] MCH 31.7 26.0 - 34.0 pg 02/21/2025 8:59 AM EDT [facility] MCHC 32.8 30.5 - 36.0 g/dL 02/21/2025 8:59 AM EDT [facility] RDW-CV 14.3 11.5 - 15.0 % 02/21/2025 8:59 AM EDT [facility] Platelet Count 305 150 - 400 k/uL 02/21/2025 8:59 AM EDT [facility] MPV 9.9 9.0 - 12.7 fL 02/21/2025 8:59 AM EDT [facility] Neutrophils % 75.5 % 02/21/2025 8:59 AM EDT [facility] Abs Neut 9.94(H) 1.45 - 7.50 k/uL 02/21/2025 8:59 AM EDT [facility] Lymphocytes % 14.4 % 02/21/2025 8:59 AM EDT [facility] Abs Lymph 1.89 1.00 - 4.00 k/uL 02/21/2025 8:59 AM EDT [facility] Monocytes % 7.0 % 02/21/2025 8:59 AM EDT [facility] Abs Bell 0.92(H) <0.87 k/uL 02/21/2025 8:59 AM EDT [facility] Eosinophils % 0.8 % 02/21/2025 8:59 AM EDT [facility] Abs Eosin 0.11 <0.46 k/uL 02/21/2025 8:59 AM EDT [facility] Basophils % 0.7 % 02/21/2025 8:59 AM EDT [facility] Abs Baso 0.09 <0.11 k/uL 02/21/2025 8:59 AM EDT [facility] Immature Granulocytes % 1.6 % 02/21/2025 8:59 AM EDT [facility] Abs Immature Gran 0.21(H) <0.10 k/uL 02/21/2025 8:59 AM EDT [facility] NRBC 0.0 /100 WBC 02/21/2025 8:59 AM EDT [facility] Absolute nRBC <0.01 <0.01 k/uL 02/21/2025 8:59 AM EDT [facility] Diff Type Auto 02/21/2025 8:59 AM EDT [facility] Blood BLOOD SPECIMEN / Unknown Venipuncture / Unknown 02/21/2025 8:51 AM EDT 02/21/2025 8:51 AM EDT us Fara Lopez WASTE MACHINE OPERATOR.[facility] Final Resul t [facility] [address] [place] [address] documented in this encounter Visit Diagnoses Diagnosis Hypogammaglobulinemia (HCC)- Primary Hypogammaglobulinaemia, unspecified Vitamin B12 deficiency Other B-complex deficiencies Other iron deficiency anemia documented in this encounter Care Teams Environmental Scientist Relationship Specialty Start Date End Date Manuel Klein MD PCP - General Family Medicine 02/27/22 Manuel Klein MD Referring Family Medicine 02/12/22 Manuel Klein MD [address] [place] [address] Referring Family Medicine 07/06/24 documented as of this encounter
--- OUTSIDE RECORDS SUMMARY | 2025-02-24 23:55 | XMS_ITS | Encounter Summary ---
Author Organization [facility] Address [address] [place] [address] Care Team Providers Care Hand Rigger Name Role Phone Manuel Klein MD Unavailable [phone] Manuel Klein MD Primary Care Provider [phone] Manuel Klein MD Unavailable [phone] Source Comments In the event this information is protected by the Federal Confidentiality of Alcohol and Drug AbusePatient Records regulations: The Federal rules restrict any use of the information to criminally investigate or prosecute any alcohol or drug abuse patient.[facility] Encounter Details Date Type Department Care Team (Late st Contact Info) Description 10/02/2022 Get Medical Advice [facility]ative [facility] Lif[facility] [address] [place] [address] Christie Phan MD [address] [place] [address] Trulicity Social History Tobacco Use [...] risk 4 09/24/2022 Data from: https://www.neighborhoodatlas.medicine.[facility]/. Last address used for calculation [address] 09/24/2022 Comments No Sex and Gender [...] Contact Info) Description 03/08/2025 2:00 PM EDT [facility] Center Hematology/Oncology [facility] [place] [address] BENLYSTA - 03/21/2025 9:00 AM EDT Office Visit [facility] [place] [address] 4 week follow up IVIG - pt to see MASON for this appt per [facility] 03/21/2025 9:20 AM EDT Visit (SP) Office Hematology/Oncology [address] [place] [address] Jose Cho MD [address] [place] [address] 4 week follow up IVIG - pt to see MASON for this appt per [facility] 03/21/2025 9:40 AM EDT Infusion Center Hematology/Oncology [address] [place] [address] Gabbi, Chair [address] [place] [address] 4 week follow up IVIG - pt to see MASON for this appt per [facility] 04/05/2025 2:00 PM EST Infusion Center Hematology/Oncology [address] [place] [address] BENLYSTA - 05/03/2025 2:00 PM EST Infusion Center Hematology/Oncology [address] [place] [address] BENLYSTA - documented as of this encounter Visit Diagnoses Not on filedocumented in this encounter Care Teams Hand Rigger Relationship Specialty Start Date End Date Manuel Klein MD PCP - General Family Medicine 02/27/22 Manuel Klein MD Referring Family Medicine 02/12/22 Manuel Klein MD [address] [place] [address] Referring Family Medicine 07/06/24 documented as of this encounter
--- OUTSIDE RECORDS SUMMARY | 2025-02-24 23:55 | XMS_ITS | Encounter Summary ---
Author Organization [facility] Address [address] [place] [address] Care Team Providers Care Full Stack Engineer Name Role Phone Aime Davidson MD, Lui Nunez Primary Care Provid er Gay De La Torre(Historical) REPRODUCTIVE HEALTHCARE ASSISTANT.CHROMOSOMAL DISORDERS COUNSELOR Primary Care Provider Unavailable Manuel Klein MD Unavailable [phone] Manuel Klein MD Primary Care Provider [phone] Manuel Klein MD Unavailable [phone] Source Comments In the event this [...] Description 12/31/2014 Patient Msg Medical Records [address] [place] [address] Provider, Ccf RE:Infection Social History Tobacco Use [...] [facility] Hematology/Oncology [address] [place] [address] [place] [address] BLANK[place] - 03/21/2025 9:00 AM EDT Office Visit [facility] Laboratory [address] [place] [address] [place] [address] 4 week follow up IVIG - pt to see MASON for this appt per [facility] 03/21/2025 9:20 AM EDT Visit (SP) Office Hematology/Oncology [address] [place] [address] Jose Cho MD [address] [place] [address] [place] [address] 4 week follow up IVIG - pt to see MASON for this appt per [facility] 03/21/2025 9:40 AM EDT Infusion Center Hematology/Oncology [address] [facility] [place] [address] Gabbi, Chair [address] [place] [address] 4 week follow up IVIG - pt to see MASON for this appt per [facility] 04/05/2025 2:00 PM EST Infusion Center Hematology/Oncology [address] [facility] [place] [address] BENLYSTA - 05/03/2025 2:00 PM EST Infusion Center Hematology/Oncology [address] [facility] [place] [address] BENLYSTA - documented as of this encounter Visit Diagnoses Not on filedocumented in this encounter Care Teams Full Stack Engineer Relationship Specialty Start Date End Date Lui Salomon Jr., MD PCP - General Internal Medicine 05/31/14 07/08/20 Gay De La Torre(Historical), REPRODUCTIVE HEALTHCARE ASSISTANT.CHROMOSOMAL DISORDERS COUNSELOR PCP - General Family Medicine 10/24/21 02/26/22 Manuel Klein MD PCP - General Family Medicine 02/27/22 Manuel Klien MD Referring Family Medicine 02/12/22 Manuel Klein MD [facility] [place] [address] Referring Family Medicine 07/06/24 documented as of this encounter
--- OUTSIDE RECORDS SUMMARY | 2025-02-24 23:55 | XMS_ITS | Encounter Summary ---
Author Organization [facility] Address [address] [place] [address] Care Team Providers Care Char Belt Operator Name Role Phone Aime Davidson MD, Lui Nunez Primary Care Provid er Gay De La Torre(Historical) LEGAL OPERATIONS MANAGER.CALL BOX WIRER Primary Care Provider Unavailable Manuel Klein MD Unavailable [phone] Manuel Klein MD Primary Care Provider [phone] Manuel Klein MD Unavailable [phone] Source Comments In the event this information is protected by the Federal Confidentiality of Alcohol and Drug AbusePatient Records regulations: The Federal rules restrict any use of the information to criminally investigate or prosecute any alcohol or drug abuse patient.[facility] Encounter Details Date Type Department Care Team (Late st Contact Info) Description 12/25/2014 Get Medical Advice Internal Medicine [facility] [place] [address] Lui Salomon Jr., MD [address] [place] [address] Test Result Question Social History [...] 03/08/2025 2:00 PM EDT [facility] Hematology/Oncology [address] [place] [address] BENLYSTA - 03/21/2025 9:00 AM EDT Office Visit [facility] [place] [address] 4 week follow up IVIG - pt to see MASON for this appt per Fara 03/21/2025 9:20 AM EDT Visit (SP) Office Hematology/Oncology [facility] [place] [address] Jose Cho MD [address] [facility] [address] 4 week follow up IVIG - pt to see MASON for this appt per Fara 03/21/2025 9:40 AM EDT Infusion Center Hematology/Oncology [address] [facility] [address] Gabbi, Chair [address] [facility] [place] [address] 4 week follow up IVIG - pt to see MASON for this appt per Fara 04/05/2025 2:00 PM EST Infusion Center Hematology/Oncology [address] [place] [address] BENLYSTA - 05/03/2025 2:00 PM EST Infusion Center Hematology/Oncology [address] [facility] [place] [address] BENLYSTA - documented as of this encounter Visit Diagnoses Not on filedocumented in this encounter Care Teams Char Belt Operator Relationship Specialty Start Date End Date Lui Salomon Jr., MD PCP - General Internal Medicine 05/31/14 07/08/20 Gay De La Torre(Historical), LEGAL OPERATIONS MANAGER.CALL BOX WIRER PCP - General Family Medicine 10/24/21 02/26/22 Manuel Klein MD PCP - General Family Medicine 02/27/22 Manuel Klein MD Referring Family Medicine 02/12/22 Manuel Klein MD [address] [place] [facility] [place] [address] Referring Family Medicine 07/06/24 documented as of this encounter
--- OUTSIDE RECORDS SUMMARY | 2025-02-24 23:55 | XMS_ITS | Encounter Summary ---
Author Organization [facility] Address [address] [place] [address] Care Team Providers Care Casting Machine Operator Helper Name Role Phone Manuel Klein MD Unavailable [phone] Manuel Klein MD Primary Care Provider +-4 Manuel Klein MD Unavailable [phone] Source Comments In the event this information is protected by the Federal Confidentiality of Alcohol and Drug AbusePatient Records regulations: The Federal rules restrict any use of the information to criminally investigate or prosecute any alcohol or drug abuse patient.[facility] Encounter Details Date Type Department Care Team (Late st Contact Info) Description 02/18/2024 Get Medical Advice Rheumatology [address] [place], [place] [id number] Sandra Park MD [address] [place] [address] Referral Social History Tobacco Use [...] 4 09/24/2022 Data from: https://www.neighborhoodatlas.medicine.[facility]/. Last address used for calculation [address] 09/24/2022 Comments No Sex and Gender [...] 2:00 PM EDT Infusion Center Hematology/Oncology [address] [place] [address] BENLYSTA - 03/21/2025 9:00 AM EDT Office Visit [facility] Laboratory [address] [place] [address] 4 week follow up IVIG - pt to see MASON for this appt per Fara 03/21/2025 9:20 AM EDT Visit (SP) Office Hematology/Oncology [address] [place] [address] Jose Cho MD [address] [place] [address] 4 week follow up IVIG - pt to see MASON for this appt per Fara 03/21/2025 9:40 AM EDT Infusion Center Hematology/Oncology [address] [place] [address] Gabbi, Chair [address] [place] [address] 4 week follow up IVIG - pt to see MASON for this appt per Fara 04/05/2025 2:00 PM EST Infusion Center Hematology/Oncology [address] [place] [address] BENLYSTA - 05/03/2025 2:00 PM EST Infusion Center Hematology/Oncology [address] [place] [address] BENLYSTA - documented as of this encounter Visit Diagnoses Diagnosis 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
--- OUTSIDE RECORDS SUMMARY | 2025-02-24 23:55 | XMS_ITS | Encounter Summary ---
Author Organization [facility] Address [address] [place] [address] Care Team Providers Care Dental Laboratory Technician Apprentice Name Role Phone Manuel Klein MD Unavailable [phone] Manuel Klein MD Primary Care Provider +-4 Manuel Klein MD Unavailable [phone] Source Comments In the event this information is protected by the Federal Confidentiality of Alcohol and Drug AbusePatient Records regulations: The Federal rules restrict any use of the information to criminally investigate or prosecute any alcohol or drug abuse patient.[facility] Encounter Details Date Type Department Care Team (Late st Contact Info) Description 12/09/2023 Get Medical Advice Infectious Disease [address] [place] [address] Tiffany Head DO [address] [place] [address] Infection Social History Tobacco Use [...] is lower risk 4 09/24/2022 Data from: https://www.neighborhoodatlas.medicine.[facility]/. Last address used for calculation [address] 09/24/2022 Comments No Sex and Gender [...] EDT [facility] Center Hematology/Oncology [facility] [place] [address] BENLYSTA - 03/21/2025 9:00 AM EDT Office Visit [facility] Laboratory [facility] [place] [address] 4 week follow up IVIG - pt to see MASON for this appt per [facility] 03/21/2025 9:20 AM EDT Visit (SP) Office Hematology/Oncology [address] [place] [address] Jose Cho MD [address] [place] [address] 4 week follow up IVIG - pt to see MASON for this appt per [facility] 03/21/2025 9:40 AM EDT Infusion Center Hematology/Oncology [address] [place] [address] Gabbi, Chair [address] [place] [address] 4 week follow up IVIG - pt to see MASON for this appt per [facility] 04/05/2025 2:00 PM EST Infusion Center Hematology/Oncology [address] [place] [address] BENLYSTA - 05/03/2025 2:00 PM EST Infusion Center Hematology/Oncology [address] [place] [address] BENLYSTA - documented as of this encounter Visit Diagnoses Not on filedocumented in this encounter Care Teams Dental Laboratory Technician Apprentice Relationship Specialty Start Date End Date Manuel Klein MD PCP - General Family Medicine 02/27/22 Manuel Klein MD Referring Family Medicine 02/12/22 Manuel Klein MD [address] [place] [address] Referring Family Medicine 07/06/24 documented as of this encounter
--- OUTSIDE RECORDS SUMMARY | 2025-02-24 23:55 | XMS_ITS | Encounter Summary ---
Author Organization [facility] Address [address] [place] [address] Care Team Providers Care Assembler Movement Name Role Phone Manuel Klein MD Unavailable [phone] Manuel Klein MD Primary Care Provider +-4 Manuel Klein MD Unavailable [phone] Source Comments In the event this information is protected by the Federal Confidentiality of Alcohol and Drug AbusePatient Records regulations: The Federal rules restrict any use of the information to criminally investigate or prosecute any alcohol or drug abuse patient.[facility] Reason for Visit * Reason Comments Results Encounter Details Date Type Department Care Team (Late st Contact Info) Description 02/21/2025 Telephone Cancer Appts [facility] [place] [address] Fara Lopez APRN.[facility] [address] [place] [address] Results Social History Tobacco Use Types Packs/Day [...] is lower risk 4 09/24/2022 Data from: https://www.neighborhoodatlas.medicine.[facility]/. Last address used for calculation [address] 09/24/2022 Comments No Sex and Gender [...] AM EDT Pt aware of results via [employer]. Questions asked in Traity encounter, response sent by Fara. RTC with Mason, 4 weeks Enma Hamm RN * Telephone Encounter - Sherrie Cortes - 02/21/2025 11:55 AM EDT Images from the original note were not included. documented in this encounter Plan of Treatment Upcoming Encounters Date Type Department Care Team (Latest Contact Info) Description 03/08/2025 2:00 PM EDT Infusion Center Hematology/Oncology [address] [place] [address] BENLYSTA - 03/21/2025 9:00 AM EDT Office Visit [facility] Laboratory [address] [place] [address] 4 week follow up IVIG - pt to see MASON for this appt per Fara 03/21/2025 9:20 AM EDT Visit (SP) Office Hematology/Oncology [address] [place] [address] Jose Cho MD [address] [place] [address] 4 week follow up IVIG - pt to see MASON for this appt per Fara 03/21/2025 9:40 AM EDT Infusion Center Hematology/Oncology [address] [place] [address] Gabib, Chair [address] [place] [address] 4 week follow up IVIG - pt to see MASON for this appt per Fara 04/05/2025 2:00 PM EST Infusion Center Hematology/Oncology [address] [place] [address] BENLYSTA - 05/03/2025 2:00 PM [facility] Infusion Center Hematology/Oncology [address] [place] [address] BENLYSTA - documented as of this encounter Visit Diagnoses Not on filedocumented in this encounter Care Teams Assembler Movement Relationship Specialty Start Date End Date Manuel Klein MD PCP - General Family Medicine 02/27/22 Manuel Klein MD Referring Family Medicine 02/12/22 Manuel Klein MD [address] [place] [address] Referring Family Medicine 07/06/24 documented as of this encounter
--- OUTSIDE RECORDS SUMMARY | 2025-02-24 23:55 | XMS_ITS | Encounter Summary ---
Author Organization [facility] Address [address] [place] [address] Care Team Providers Care Bottom Stainer Name Role Phone Aime Davidson MD, Lui Nunez Primary Care Provid er Gay De La Torre(Historical) LOT TECHNICIAN.SUPERVISOR GROUNDS Primary Care Provider Unavailable Manuel Klein MD Unavailable [phone] Manuel Klein MD Primary Care Provider [phone] Manuel Klein MD Unavailable [phone] Source Comments In the event this information is protected by the Federal Confidentiality of Alcohol and Drug AbusePatient Records regulations: The Federal rules restrict any use of the information to criminally investigate or prosecute any alcohol or drug abuse patient.[facility] Encounter Details Date Type Department Care Team (Late st Contact Info) Description 12/31/2014 Patient Msg Medical Records [address] [place] [address] Provider, Ccf Prescription Social History Tobacco Use [...] PM EDT [facility] Center Hematology/Oncology [address] [place], [place] [address] [place] [address] TOOTIELYSTA - 03/21/2025 9:00 AM EDT Office Visit [facility] Laboratory [facility] [place] [address] 4 week follow up IVIG - pt to see MASON for this appt per Fara 03/21/2025 9:20 AM EDT Visit (SP) Office Hematology/[place] [address] Jose Cho MD [address] [place] [address] [place] [address] 4 week follow up IVIG - pt to see MASON for this appt per Fara 03/21/2025 9:40 AM EDT Infusion Center Hematology/Oncology [address] [place] [address] Gabbi, Chair [address] [place] [address] 4 week follow up IVIG - pt to see MASON for this appt per Fara 04/05/2025 2:00 PM EST Infusion Center Hematology/Oncology [address] [facility] [place] [address] BENLYSTA - 05/03/2025 2:00 PM EST Infusion Center Hematology/Oncology [address] [facility] [place] [address] BENLYSTA - documented as of this encounter Visit Diagnoses Not on filedocumented in this encounter Care Teams Bottom Stainer Relationship Specialty Start Date End Date Lui Salomon Jr., MD PCP - General Internal Medicine 05/31/14 07/08/20 Gay De La Torre(Historical), LOT TECHNICIAN.SUPERVISOR GROUNDS PCP - General Family Medicine 10/24/21 02/26/22 Manuel Klein MD PCP - General Family Medicine 02/27/22 Manuel Klein MD Referring Family Medicine 02/12/22 Manuel Klein MD [address] [place] [address] Referring Family Medicine 07/06/24 documented as of this encounter
--- OUTSIDE RECORDS SUMMARY | 2025-02-24 23:55 | XMS_ITS | Clinical Summary ---
Author Organization [facility] Address [address], [address] [place] [address] Care Team Providers Care Kiln Loader Name Role Phone Gay De La Torre APRN - LEVEL VIAL INSIDE GRINDER Primary Care Provide r Allergies Active Allergy [...] 8:32 AM 10/08/2020 2:43 AM Care Teams Kiln Loader Relationship Specialty Start Date End Date Gay De La Torre, MAURILIO - LEVEL VIAL INSIDE GRINDER [address] [place] [address] PCP - General 06/03/21
--- OUTSIDE RECORDS SUMMARY | 2025-02-24 23:55 | XMS_ITS | Encounter Summary ---
Author Organization [facility] Address [facility] [place] [address] Care Team Providers Care Blood Bank Coordinator Name Role Phone Manuel Klein MD Unavailable [phone] Manuel Klein MD Primary Care Provider +-4 Manuel Klein MD Unavailable [phone] Source Comments In the event this information is protected by the Federal Confidentiality of Alcohol and Drug AbusePatient Records regulations: The Federal rules restrict any use of the information to criminally investigate or prosecute any alcohol or drug abuse patient.[facility] Encounter Details Date Type Department Care Team (Late st Contact Info) Description 03/04/2023 Patient [facility] [address] [place] [address] Provider, Ccf Benlysta Injection Video Social History [...] lower risk 4 09/24/2022 Data from: https://www.neighborhoodatlas.medicine.[facility].edu/. Last address used for calculation [address] 09/24/2022 Comments No Sex and Gender [...] [facility] H[facility]Oncology [address] [place] [address] BENLYSTA - 03/21/2025 9:00 AM EDT Office Visit [facility] Laboratory [address] [place] [address] 4 week follow up IVIG - pt to see MASON for this appt per Fara 03/21/2025 9:20 AM EDT Visit (SP) Office Hematology/Oncology [address] [place] [address] Jose Cho MD [address] [place] [address] 4 week follow up IVIG - pt to see MASON for this appt per Fara 03/21/2025 9:40 AM EDT Infusion Center Hematology/Oncology [address] [place] [address] Gabbi, Chair [address] [place] [address] 4 week follow up IVIG - pt to see MASON for this appt per Fara 04/05/2025 2:00 PM EST Infusion Center Hematology/Oncology [address] [place] [address] [place] [address] BENLYSTA - 05/03/2025 2:00 PM [facility] Infusion Center Hematology/Oncology [address] [place] [address] [place] [address] BENLYSTA - documented as of this encounter Visit Diagnoses Not on filedocumented in this encounter Care Teams Blood Bank Coordinator Relationship Specialty Start Date End Date Manuel Klein MD PCP - General Family Medicine 02/27/22 Manuel Klein MD Referring Family Medicine 02/12/22 Manuel Klein MD [address] [place] [address] Referring Family Medicine 07/06/24 documented as of this encounter
--- OUTSIDE RECORDS SUMMARY | 2025-02-24 23:55 | XMS_ITS | Encounter Summary ---
Author Organization [facility] Address [facility] [place] [address] Care Team Providers Care Knitting Demonstrator Name Role Phone Manuel Klein MD Unavailable [phone] Manuel Klein MD Primary Care Provider +-4 Manuel Klein MD Unavailable [phone] Source Comments In the event this information is protected by the Federal Confidentiality of Alcohol and Drug AbusePatient Records regulations: The Federal rules restrict any use of the information to criminally investigate or prosecute any alcohol or drug abuse patient.[facility] Encounter Details Date Type Department Care Team (Late st Contact Info) Description 04/10/2023 Patient Msg Integrated Medicine [address] [place] [address] Christie Phan MD [address], [place] [address] Labs Social History Tobacco Use [...] is lower risk 4 09/24/2022 Data from: https://www.neighborhoodatlas.medicine.[facility]/. Last address used for calculation [address] 09/24/2022 Comments No Sex and Gender [...] [facility] Center Hematology/Oncology [address] [place] [address] BENLYSTA - 03/21/2025 9:00 AM EDT Office Visit [facility] Laboratory [address] [place] [address] [place] [address] 4 week follow up IVIG - pt to see MASON for this appt per [facility] 03/21/2025 9:20 AM EDT Visit (SP) Office Hematology/Oncology [address] [place] [address] Jose Cho MD [address] [place] [address] 4 week follow up IVIG - pt to see MASON for this appt per [facility] 03/21/2025 9:40 AM EDT Infusion Center Hematology/Oncology [address] [place] [address] Gabbi, Chair [address] [place] [address] 4 week follow up IVIG - pt to see MASON for this appt per [facility] 04/05/2025 2:00 PM EST Infusion Center Hematology/Oncology [address] [place] [address] BENLYSTA - 05/03/2025 2:00 PM [facility] Infusion Center Hematology/Oncology [address] [place] [address] BENLYSTA - documented as of this encounter Visit Diagnoses Not on filedocumented in this encounter Care Teams Knitting Demonstrator Relationship Specialty Start Date End Date Manuel Klein MD PCP - General Family Medicine 02/27/22 Manuel Klein MD Referring Family Medicine 02/12/22 Manuel Klein MD [address] [facility] [place] [address] Referring Family Medicine 07/06/24 documented as of this encounter
--- OUTSIDE RECORDS SUMMARY | 2025-02-24 23:55 | XMS_ITS | Encounter Summary ---
Author Organization [facility] Address [address] [place] [address] Care Team Providers Care Internal Grinder Name Role Phone Manuel Klein MD Unavailable [phone] Manuel Klein MD Primary Care Provider +-4 Manuel Klein MD Unavailable [phone] Source Comments In the event this information is protected by the Federal Confidentiality of Alcohol and Drug AbusePatient Records regulations: The Federal rules restrict any use of the information to criminally investigate or prosecute any alcohol or drug abuse patient.[facility] Encounter Details Date Type Department Care Team (Late st Contact Info) Description 05/11/2023 Get Medical Advice Rheumatology [address] [place], [place] [id number] Sandra Park MD [address] [place] [address] Flair Social History Tobacco Use [...] lower risk 4 09/24/2022 Data from: https://www.neighborhoodatlas.medicine.[facility]/. Last address used for calculation [address] 09/24/2022 Comments No Sex and Gender [...] Department VIDEO SPEC EST 08/12/2023 9:[address] [facility] Last Ophthalmology Check for Plaquenil [...] 2:00 PM EDT Infusion Center Hematology/Oncology [address] [place] [address] BENLYSTA - 03/21/2025 9:00 AM EDT Office Visit [facility] Laboratory [address] [place] [address] 4 week follow up IVIG - pt to see MASON for this appt per Fara 03/21/2025 9:20 AM EDT Visit (SP) Office Hematology/Oncology [address] [place] [address] Jose Cho MD [address] [place] [address] 4 week follow up IVIG - pt to see MASON for this appt per Fara 03/21/2025 9:40 AM EDT Infusion Center Hematology/Oncology [address] [place] [address] Day, Chair [address] [place] [address] 4 week follow up IVIG - pt to see MASON for this appt per Fara 04/05/2025 2:00 PM EST Infusion Center Hematology/Oncology [address] [place] [address] BENLYSTA - 05/03/2025 2:00 PM EST Infusion Center Hematology/Oncology [address] [place] [address] BENLYSTA - documented as of this encounter Visit Diagnoses Diagnosis Other systemic lupus erythematosus with other organ involvement (HCC) documented in this encounter Care Teams Internal Grinder Relationship Specialty Start Date End Date Manuel Klein MD PCP - General Family Medicine 02/27/22 Manuel Klein MD Referring Family Medicine 02/12/22 Manuel Klein MD [address] [place] [address] Referring Family Medicine 07/06/24 documented as of this encounter
--- OUTSIDE RECORDS SUMMARY | 2025-02-24 23:55 | XMS_ITS | Encounter Summary ---
Author Organization [facility] Address [address] [place] [address] Care Team Providers Care Property And Casualty Insurance Agent Name Role Phone Manuel Klein MD Unavailable [phone] Manuel Klein MD Primary Care Provider +-4 Manuel Klein MD Unavailable [phone] Source Comments In the event this information is protected by the Federal Confidentiality of Alcohol and Drug AbusePatient Records regulations: The Federal rules restrict any use of the information to criminally investigate or prosecute any alcohol or drug abuse patient.[facility] Encounter Details Date Type Department Care Team (Late st Contact Info) Description 02/21/2025 Get Medical Advice Hematology/Oncology [address] [place] [address] [place] [address] Provider, Ccf Blood work Social History Tobacco [...] lower risk 4 09/24/2022 Data from: https://www.neighborhoodatlas.medicine.[facility]/. Last address used for calculation [address] 09/24/2022 Comments No Sex and Gender [...] 2:00 PM EDT [facility]Oncology [address] [place] [address] BENLYSTA - 03/21/2025 9:00 AM EDT Office Visit [facility] Laboratory [address] [place] [address] 4 week follow up IVIG - pt to see MSAON for this appt per [facility] 03/21/2025 9:20 AM EDT Visit (SP) Office Hematology/Oncology [address] [place] [address] Jose Cho MD [address] [place] [address] 4 week follow up IVIG - pt to see MASON for this appt per [facility] 03/21/2025 9:40 AM EDT Infusion Center Hematology/Oncology [address] [place] [address] Gabbi, Chair 4 [address] [place] [address] 4 week follow up IVIG - pt to see MASON for this appt per [facility] 04/05/2025 2:00 PM EST Infusion Center Hematology/Oncology [address] [place] [address] [place] [address] BENLYSTA - 05/03/2025 2:00 PM [facility] Infusion Center Hematology/Oncology [address] [place] [address] [place] [address] BENLYSTA - documented as of this encounter Visit Diagnoses Not on filedocumented in this encounter Care Teams Property And Casualty Insurance Agent Relationship Specialty Start Date End Date Manuel Klein MD PCP - General Family Medicine 02/27/22 Manuel Klein MD Referring Family Medicine 02/12/22 Manuel Klein MD [address] [place] [address] Referring Family Medicine 07/06/24 documented as of this encounter
--- OUTSIDE RECORDS SUMMARY | 2025-02-24 23:55 | XMS_ITS | Encounter Summary ---
Author Organization [facility] Address [address] [place] [address] Care Team Providers Care Presales Senior Specialist Name Role Phone Manuel Klein MD Unavailable [phone] Manuel Klein MD Primary Care Provider +-4 Manuel Klein MD Unavailable [phone] Source Comments In the event this information is protected by the Federal Confidentiality of Alcohol and Drug AbusePatient Records regulations: The Federal rules restrict any use of the information to criminally investigate or prosecute any alcohol or drug abuse patient.[facility] Reason for Visit * Reason Onset Date Comments Refill Request 01/23/2025 Encounter Details Date Type Department Care Team (Late st Contact Info) Description 01/23/2025 Refill Rheumatology [address] [place], [place] [id number] Sandra Park MD [address] [place] [address] Refill Request Social History Tobacco [...] is lower risk 4 09/24/2022 Data from: https://www.neighborhoodatlas.medicine.[facility]/. Last address used for calculation [address] 09/24/2022 Comments No Sex and Gender [...] [facility] Hematology/Oncology [address] [place] [address] BENLYSTA - 03/21/2025 9:00 AM EDT Office Visit [facility] Laboratory [address] [place] [address] 4 week follow up IVIG - pt to see MASON for this appt per [facility] 03/21/2025 9:20 AM EDT Visit (SP) Office Hematology/Oncology [address] [place] [address] Jose Cho MD [address] [place] [address] 4 week follow up IVIG - pt to see MASON for this appt per [facility] 03/21/2025 9:40 AM EDT Infusion Center Hematology/Oncology [address] [facility] [place] [address] Gabbi, Chair [address] [place] [address] 4 week follow up IVIG - pt to see MASON for this appt per [facility] 04/05/2025 2:00 PM EST Infusion Center Hematology/Oncology [address] [place] [address] BENLYSTA - 05/03/2025 2:00 PM [facility] Infusion Center Hematology/Oncology [address] [address] BENLYSTA - documented as of this encounter Visit Diagnoses Diagnosis CHRISTIAN positive Other and unspecified nonspecific immunological findings Other systemic lupus erythematosus with other organ involvement (HCC) documented in this encounter Care Teams Presales Senior Specialist Relationship Specialty Start Date End Date Manuel Klein MD PCP - General Family Medicine 02/27/22 Manuel Klein MD Referring Family Medicine 02/12/22 Manuel Klein MD [address] [place] [address] Referring Family Medicine 07/06/24 documented as of this encounter
--- OUTSIDE RECORDS SUMMARY | 2025-02-24 23:55 | XMS_ITS | Encounter Summary ---
Author Organization [facility] Address [address] [place] [address] Care Team Providers Care Contracts Director Name Role Phone Manuel Klein MD Unavailable [phone] Manuel Klein MD Primary Care Provider +-4 Manuel Klein MD Unavailable [phone] Source Comments In the event this information is protected by the Federal Confidentiality of Alcohol and Drug AbusePatient Records regulations: The Federal rules restrict any use of the information to criminally investigate or prosecute any alcohol or drug abuse patient.[facility] Encounter Details Date Type Department Care Team (Late st Contact Info) Description 10/15/2022 Get Medical Advice Allergy [address] [place] [phone] Misty Nelson MD [address] [place] [address] Vaccine Social History Tobacco Use Types [...] is lower risk 4 09/24/2022 Data from: https://www.neighborhoodatlas.medicine.[facility]/. Last address used for calculation [address] 09/24/2022 Comments No Sex and Gender [...] PM EDT [facility] Hematology/Oncology [facility] [place] [address] BENLYSTA - 03/21/2025 9:00 AM EDT Office Visit [facility] Laboratory [facility] [place] [address] 4 week follow up IVIG - pt to see MASON for this appt per [facility] 03/21/2025 9:20 AM EDT Visit (SP) Office Hematology/Oncology [address] [facility] [place] [address] Jose Cho MD [address] [facility] [place] [address] 4 week follow up IVIG - pt to see MASON for this appt per [facility] 03/21/2025 9:40 AM EDT Infusion Center Hematology/Oncology [address] [facility] [place] [place] [address] Gabbi, Chair 4 [address] [facility] [place] [place] [address] 4 week follow up IVIG - pt to see MASON for this appt per [facility] 04/05/2025 2:00 PM EST Infusion Center Hematology/Oncology [address] [facility] [place] [address] BENLYSTA - 05/03/2025 2:00 PM EST Infusion Center Hematology/Oncology [address] [facility] [place] [address] BENLYSTA - documented as of this encounter Visit Diagnoses Not on filedocumented in this encounter Care Teams Contracts Director Relationship Specialty Start Date End Date Manuel Klein MD PCP - General Family Medicine 02/27/22 Manuel Klein MD Referring Family Medicine 02/12/22 Manuel Klein MD [address] [place] [address] Referring Family Medicine 07/06/24 documented as of this encounter
--- OUTSIDE RECORDS SUMMARY | 2025-02-24 23:55 | XMS_ITS | Encounter Summary ---
Author Organization [facility] Address [address] [place] [address] Care Team Providers Care Rn Mobile Name Role Phone Manuel Klein MD Unavailable [phone] Manuel Klein MD Primary Care Provider +-4 Manuel Klein MD Unavailable [phone] Source Comments In the event this information is protected by the Federal Confidentiality of Alcohol and Drug AbusePatient Records regulations: The Federal rules restrict any use of the information to criminally investigate or prosecute any alcohol or drug abuse patient.[facility] Encounter Details Date Type Department Care Team (Late st Contact Info) Description 10/16/2022 Get Medical Advice [facility] [address] [place] [address] Christie Phan MD [address], [place] [address] Trulicity Social History Tobacco Use [...] risk 4 09/24/2022 Data from: https://www.neighborhoodatlas.medicine.[facility]/. Last address used for calculation [address] 09/24/2022 Comments No Sex and Gender [...] PM EDT [facility] Hematology/Oncology [facility] [place] [address] BENLYSTA - 03/21/2025 9:00 AM EDT Office Visit [facility] [place] [address] 4 week follow up IVIG - pt to see MASON for this appt per [facility] 03/21/2025 9:20 AM EDT Visit (SP) Office Hematology/Oncology [address] [place] [address] Jose Cho MD [address] [facility] [place] [address] 4 week follow up IVIG - pt to see MASON for this appt per [facility] 03/21/2025 9:40 AM EDT Infusion Center Hematology/Oncology [address] [place] [address] Gabbi, Chair 4 [address] [facility] [place] [address] 4 week follow up IVIG - pt to see MASON for this appt per [facility] 04/05/2025 2:00 PM EST Infusion Center Hematology/Oncology [address] [place] [address] BENLYSTA - 05/03/2025 2:00 PM EST Infusion Center Hematology/Oncology [address] [facility] [place] [address] BENLYSTA - documented as of this encounter Visit Diagnoses Not on filedocumented in this encounter Care Teams Rn Mobile Relationship Specialty Start Date End Date Manuel Klein MD PCP - General Family Medicine 02/27/22 Manuel Klein MD Referring Family Medicine 02/12/22 Manuel Klein MD [address] [place] [address] Referring Family Medicine 07/06/24 documented as of this encounter
--- OUTSIDE RECORDS SUMMARY | 2025-02-24 23:55 | XMS_ITS | Encounter Summary ---
Author Organization [facility] Address [facility] [place] [address] Care Team Providers Care Bag End Sewer Name Role Phone Manuel Klein MD Unavailable Manuel Klein MD Primary Care Provider +-4 Manuel Klein MD Unavailable [phone] Source Comments In the event this information is protected by the Federal Confidentiality of Alcohol and Drug AbusePatient Records regulations: The Federal rules restrict any use of the information to criminally investigate or prosecute any alcohol or drug abuse patient.[facility] Encounter Details Date Type Department Care Team (Late st Contact Info) Description 10/29/2022 Patient Msg Integrated Medicine [address] [place] [address] Christie Phan MD [address], [place] [address] Trulicity Social History Tobacco Use [...] risk 4 09/24/2022 Data from: https://www.neighborhoodatlas.medicine.[facility]/. Last address used for calculation [address] 09/24/2022 Comments No Sex and Gender [...] [facility] [address] [place] [address] BENLYSTA - 03/21/2025 9:00 AM EDT Office Visit [facility] Laboratory [facility] [place] [address] 4 week follow up IVIG - pt to see MASON for this appt per [facility] 03/21/2025 9:20 AM EDT Visit (SP) Office Hematology/Oncology [address] [place] [address] Jose Cho MD [address] [place] [address] 4 week follow up IVIG - pt to see MASON for this appt per [facility] 03/21/2025 9:40 AM EDT Infusion Center Hematology/Oncology [address] [place] [address] Gabbi, Chair [address] [place] [address] 4 week follow up IVIG - pt to see MASON for this appt per [facility] 04/05/2025 2:00 PM EST Infusion Center Hematology/Oncology [address] [place] [address] BENLYSTA - 05/03/2025 2:00 PM EST Infusion Center Hematology/Oncology [address] [place] [address] BENLYSTA - documented as of this encounter Visit Diagnoses Not on filedocumented in this encounter Care Teams Bag End Sewer Relationship Specialty Start Date End Date Manuel Klein MD PCP - General Family Medicine 02/27/22 Manuel Klein MD Referring Family Medicine 02/12/22 Manuel Klein MD [address] [place] [facility] [place] [address] Referring Family Medicine 07/06/24 documented as of this encounter
--- OUTSIDE RECORDS SUMMARY | 2025-02-24 23:55 | XMS_ITS | Encounter Summary ---
Author Organization [facility] Address [address] [place] [address] Care Team Providers Care Supervisor Payroll Name Role Phone Manuel Klein MD Unavailable [phone] Manuel Klein MD Primary Care Provider +-4 Manuel Klein MD Unavailable [phone] Source Comments In the event this information is protected by the Federal Confidentiality of Alcohol and Drug AbusePatient Records regulations: The Federal rules restrict any use of the information to criminally investigate or prosecute any alcohol or drug abuse patient.[facility] Encounter Details Date Type Department Care Team (Late st Contact Info) Description 01/26/2024 [place] [address] Provider, Ccf Important changes to Wellness RX [...] is lower risk 4 09/24/2022 Data from: https://www.neighborhoodatlas.[facility]/. Last address used for calculation [address] [facility] 09/24/2022 Comments No Sex and Gender [...] EDT [facility] Hematology/Oncology [address] [place] [address] BENLYSTA - 03/21/2025 9:00 AM EDT Office Visit [facility] [place] [address] 4 week follow up IVIG - pt to see MASON for this appt per [facility] 03/21/2025 9:20 AM EDT Visit (SP) Office Hematology/Oncology [facility] [place] [address] Jose Cho MD [address] [place] [address] 4 week follow up IVIG - pt to see MASON for this appt per [facility] 03/21/2025 9:40 AM EDT Infusion Center Hematology/Oncology [address] [facility] [place] [address] Gabbi, Chair 4 [address] [facility] [place] [address] 4 week follow up IVIG - pt to see MASON for this appt per [facility] 04/05/2025 2:00 PM EST Infusion Center Hematology/Oncology [address] [facility] [place] [address] BENLYSTA - 05/03/2025 2:00 PM [facility] Infusion Center Hematology/Oncology [address] [place] [address] BENLYSTA - documented as of this encounter Visit Diagnoses Not on filedocumented in this encounter Care Teams Supervisor Payroll Relationship Specialty Start Date End Date Manuel Klein MD PCP - General Family Medicine 02/27/22 Manuel Klein MD Referring Family Medicine 02/12/22 Manuel Klein MD [address] [facility] [address] Referring Family Medicine 07/06/24 documented as of this encounter
--- OUTSIDE RECORDS SUMMARY | 2025-02-24 23:55 | XMS_ITS | Encounter Summary ---
Author Organization [facility] Address [address] [place] [address] Care Team Providers Care Loan Auditor Name Role Phone Manuel Klein MD Unavailable [phone] Manuel Klein MD Primary Care Provider +-4 Manuel Klein MD Unavailable [phone] Source Comments In the event this information is protected by the Federal Confidentiality of Alcohol and Drug AbusePatient Records regulations: The Federal rules restrict any use of the information to criminally investigate or prosecute any alcohol or drug abuse patient.[facility] Encounter Details Date Type Department Care Team (Late st Contact Info) Description 02/23/2024 Patient Msg Rheumatology [address] [place], [place] [id number] Sandra Park MD [address] [place] [address] Appointment Request Social History Tobacco [...] is lower risk 4 09/24/2022 Data from: https://www.neighborhoodatlas.medicine.[facility]/. Last address used for calculation [address] 09/24/2022 Comments No Sex and Gender [...] [facility] Hematology/Oncology [address] [place] [address] BENLYSTA - 03/21/2025 9:00 AM EDT Office Visit [facility] [address] [place] [address] [place] [address] 4 week follow up IVIG - pt to see MASON for this appt per [facility] 03/21/2025 9:20 AM EDT Visit (SP) Office Hematology/Oncology [address] [place] [address] Jose Cho MD [address] [place] [address] 4 week follow up IVIG - pt to see MASON for this appt per [facility] 03/21/2025 9:40 AM EDT Infusion Center Hematology/Oncology [address] [place] [address] Gabbi, Chair [address] [place] [address] 4 week follow up IVIG - pt to see MASON for this appt per [facility] 04/05/2025 2:00 PM EST Infusion Center Hematology/Oncology [address] [facility] [place] [address] BENLYSTA - 05/03/2025 2:00 PM [facility] Infusion Center Hematology/Oncology [address] [place] [address] BENLYSTA - documented as of this encounter Visit Diagnoses Not on filedocumented in this encounter Care Teams Loan Auditor Relationship Specialty Start Date End Date Manuel Klein MD PCP - General Family Medicine 02/27/22 Manuel Klein MD Referring Family Medicine 02/12/22 Manuel Klein MD [address] [facility] [place] [address] Referring Family Medicine 07/06/24 documented as of this encounter
--- OUTSIDE RECORDS SUMMARY | 2025-02-24 23:55 | XMS_ITS | Encounter Summary ---
Author Organization [facility] Address [facility] [place] [address] Care Team Providers Care Steam Drier Operator Name Role Phone Manuel Klein MD Unavailable [phone] Manuel Klein MD Primary Care Provider +-4 Manuel Klein MD Unavailable [phone] Source Comments In the event this information is protected by the Federal Confidentiality of Alcohol and Drug AbusePatient Records regulations: The Federal rules restrict any use of the information to criminally investigate or prosecute any alcohol or drug abuse patient.[facility] Encounter Details Date Type Department Care Team (Late st Contact Info) Description 02/11/2023 Patient [facility] HB-3 [address] [place] [address] Provider, Ccf Huseyin Approved - Action Needed! [...] [facility]/. Last address used for calculation [address] 09/24/2022 Comments No Sex and Gender [...] Contact Info) Description 03/08/2025 2:00 PM EDT [facility] Hematology/Oncology [address] [place] [address] BENLYSTA - 03/21/2025 9:00 AM EDT Office Visit [facility] Laboratory [address] [place] [address] 4 week follow up IVIG - pt to see MASON for this appt per [facility] 03/21/2025 9:20 AM EDT Visit (SP) Office Hematology/Oncology [address] [place] [address] Jose Cho MD [address] [place] [address] 4 week follow up IVIG - pt to see MASON for this appt per [facility] 03/21/2025 9:40 AM EDT Infusion Center Hematology/Oncology [address] [place] [address] Gabbi, Chair [address] [place] [address] 4 week follow up IVIG - pt to see MASON for this appt per [facility] 04/05/2025 2:00 PM EST Infusion Center Hematology/Oncology [address] [place] [address] [place] [address] BENLYSTA - 05/03/2025 2:[address] [facility] Infusion Center Hematology/Oncology [address] [place] [address] [place] [address] BENLYSTA - documented as of this encounter Visit Diagnoses Not on filedocumented in this encounter Care Teams Steam Drier Operator Relationship Specialty Start Date End Date Manuel Klein MD PCP - General Family Medicine 02/27/22 Manuel Klein MD Referring Family Medicine 02/12/22 Manuel Klein MD [address] [place] [address] Referring Family Medicine 07/06/24 documented as of this encounter
--- OUTSIDE RECORDS SUMMARY | 2025-02-24 23:56 | XMS_ITS | Encounter Summary ---
Author Organization [facility] Address [address] [facility] [place] [address] Care Team Providers Care Senior Naval Parachutist Name Role Phone House, Charles Culver MD Primary Care Provider [phone] Gya De La Torre MD Unavailable [phone] Encounter Details Date Type Department Care Team (Late Contact Info) Description 06/14/2024 Clinisync Result Encounter [facility] External Department Unsolicited Oly Plascencia PA [address] [place] [address] [place] [address] Social History Tobacco Use Types [...] AM EDT Consult [facility] [address] [facility] 150 [place] [address] Terence Blum MD 703 [facility] 150 [place] [address] 03/19/2025 10:20 AM EDT Office Visit [facility] [address] [facility] 900 [place] [address] Mary Grace Mejias MD [address] [facility] 130 [place] [address] 07/25/2025 11:00 AM EST Office Visit [facility] [address] [place] [address] Cynthia English MD [address] [place] [address] documented as of this encounter Procedures Procedure Name Priority Date/Time Associated Diagnosis Comments US BREAST LT LIMITED 06/14/2024 3:04 PM EST documented in this encounter Results * US BREAST LT LIMITED (06/14/2024 3:04 PM EST) Anatomical Region Laterality Modality Other 06/14/2024 3:04 PM EST Narrative 06/14/2024 3:05 PM EST [address] [address] Ultrasound Report Signed Patient: JONES PANIAGUA MR#: [id number] : 1980 Acct:[id number] Age/Sex: 43 / F ADM Date: 06/14/24 Loc: MAMMO Attending Dr: Oly Plascencia Ordering Physician: Oly Plascencia Date of Service: 06/14/24 Procedure(s): US breast LT limited Accession Number(s): [id number] cc: Oly Plascencia; GAY DE LA TORRE Patient Name: JONES PANIAGUA MR#: [id number] : 1980 Exam Date: 06/14/2024 Ordering Doctor: [...] Signed By: 06/14/24 1505 DD/ 1504 TD/TT: Supervisor Diagnostic: Procedure Note Radiology, Radiologist, MD - 06/14/2024 [place] [address] Ultrasound Report Signed Patient: JONES PANIAGUA BMR#: [id number] : 1980Acct:[id number] Age/Sex: 43 / FADM Date: 06/14/24 Loc: MAMMO Attending Dr: Oly Plascencia Ordering Physician: Oly Plascencia Date of Service: 06/14/24 Procedure(s): US breast LT limited Accession Number(s): [id number] cc: Oly Plascencia; GAY DE LA TORRE Patient Name: JONES PANIAGUA MR#: [id number] : 1980 Exam Date: 06/14/2024 Ordering Doctor: [...] M.D. Signed By:06/14/24 1505 DD/ 1504 TD/TT: Supervisor Diagnostic: us [facility] Final Result documented in this encounter Visit Diagnoses Not on filedocumented in this encounter Care Teams Senior Naval Parachutist Relationship Specialty Start Date End Date Charles Nicole MD PCP - General Family Medicine 02/09/24 07/17/24 Gay De La Torre MD [address] [place] [address] Referring Physician Family Medicine 07/18/24 documented as of this encounter
--- OUTSIDE RECORDS SUMMARY | 2025-02-24 23:56 | XMS_ITS | Encounter Summary ---
Author Organization [facility] Address [address] [facility] [place] [address] Care Team Providers Care Cosmetology Educator Name Role Phone House, Charles Culver MD Primary Care Provider Gay De La Torre MD Unavailable [phone] Encounter Details Date Type Department Care Team (Late Contact Info) Description 04/07/2024 Clinisync Result Encounter [facility] External Department Unsolicited Oly Parnell PA [address] [place] [address] [place] [address] Social History Tobacco Use Types [...] AM EDT Consult [facility] [address] [facility] 150 [place] [address] Terence Blum MD 703 [facility] 150 [place] [address] 03/19/2025 10:20 AM EDT Office Visit [facility] [address] [facility] 900 [place] [address] Mary Grace Mejias MD [address] [facility] 130 [place] [address] 07/25/2025 11:00 AM EST Office [facility] [address] [place] [address] Cynthia English MD [address] [place] [address] documented as of this encounter Procedures Procedure Name Priority Date/Time Associated Diagnosis Comments US PELVIS W/ TRANSVAGINAL 04/07/2024 4:48 AM EST documented in this encounter Results * US PELVIS W/ TRANSVAGINAL (04/07/2024 4:48 AM EST) Anatomical Region Laterality Modality Other 04/07/2024 4:48 AM EST Narrative 04/07/2024 4:51 AM EST [address] [address] Ultrasound Report Signed Patient: JONES PANIAGUA MR#: [id number] : 1980 Acct:[id number] Age/Sex: 43 / F ADM Date: 04/06/24 Loc: LAB Attending Dr: Oly Parnell Ordering Physician: Oly Parnell Date of Service: 04/06/24 Procedure(s): US pelvis w/ transvaginal Accession Number(s): [id number] cc: GAY Mcpherson [address] [address] Patient Name: JONES PANIAGUA MRN: [id number] date: 1980 Sex: F Assigned Patient Location: LAB Current Patient Location: Accession/Order Number: [id number] Exam Date: 04/06/2024 15:45 Report Date: 04/07/2024 [...] Signed By: 04/07/24 0451 DD/ 0448 TD/TT: Program Associate: Procedure Note Radiology, Radiologist, MD - 04/07/2024 [place] [address] Ultrasound Report Signed Patient: JONES PANIAGUA BMR#: [id number] : 1980Acct:[id number] Age/Sex: 43 / FADM Date: 04/06/24 Loc: LAB Attending Dr: Oly Parnell Ordering Physician: Oly Parnell Date of Service: 04/06/24 Procedure(s): US pelvis w/ transvaginal Accession Number(s): [id number] cc: GAY Mcpherson The [address] [address] Patient Name: JONES PANIAGUA MRN: [id number] date: 1980 Sex: F Assigned Patient Location: LAB Current Patient Location: Accession/Order Number: [id number] Exam Date: 04/06/2024 15:45 Report Date: 04/07/2024 [...] Dictated By: Vito Yusuf M.D. Signed By:04/07/24 045 DD/ TD/TT: Program Associate: us [facility] Final Result documented in this encounter Visit Diagnoses Not on filedocumented in this encounter Care Teams Cosmetology Educator Relationship Specialty Start Date End Date Charles Nicole MD PCP - General Family Medicine 02/09/24 07/17/24 Gay De La Torre MD [address] [place] [address] Referring Physician Family Medicine 07/18/24 documented as of this encounter
--- OUTSIDE RECORDS SUMMARY | 2025-02-24 23:56 | XMS_ITS | Encounter Summary ---
Author Organization [facility] Address [address] [place] [address] Care Team Providers Care Selling Underwriter Name Role Phone Manuel Klein MD Unavailable [phone] Manuel Klein MD Primary Care Provider [phone] Manuel Klein MD Unavailable [phone] Source Comments In the event this information is protected by the Federal Confidentiality of Alcohol and Drug AbusePatient Records regulations: The Federal rules restrict any use of the information to criminally investigate or prosecute any alcohol or drug abuse patient.[facility] Encounter Details Date Type Department Care Team (Late st Contact Info) Description 07/06/2024 Patient Msg Referring Physician [address] [place] [address] Provider, [facility] Appointment Social History Tobacco Use [...] is lower risk 4 09/24/2022 Data from: https://www.neighborhoodatlas.[facility].edu/. Last address used for calculation [address] 09/24/2022 Comments No Sex and Gender [...] [facility] [address] [place] [address] BENLYSTA - 03/21/2025 9:00 AM EDT Office Visit [facility] [place] [address] 4 week follow up IVIG - pt to see MASON for this appt per Fara 03/21/2025 9:20 AM EDT Visit (SP) Office Hematology/Oncology [facility] [place] [address] Jose Cho MD [address] [place] [address] 4 week follow up IVIG - pt to see MASON for this appt per Fara 03/21/2025 9:40 AM EDT Infusion Center Hematology/Oncology [address] [place] [address] Gabbi, Chair [address] [place] [address] 4 week follow up IVIG - pt to see MASON for this appt per Fara 04/05/2025 2:00 PM EST Infusion Center Hematology/Oncology [address] [place] [address] BENLYSTA - 05/03/2025 2:00 PM [facility] Infusion Center Hematology/Oncology [address] [place] [address] [place] [address] BENLYSTA - documented as of this encounter Visit Diagnoses Not on filedocumented in this encounter Care Teams Selling Underwriter Relationship Specialty Start Date End Date Manuel Klein MD PCP - General Family Medicine 02/27/22 Manuel Klein MD Referring Family Medicine 02/12/22 Manuel Klein MD [address] [place] [address] Referring Family Medicine 07/06/24 documented as of this encounter
--- OUTSIDE RECORDS SUMMARY | 2025-02-24 23:56 | XMS_ITS | Encounter Summary ---
Author Organization [facility] Address [address] [facility] [place] [address] Care Team Providers Care Certified Genetic Counselor Name Role Phone House, Charles Culver MD Primary Care Provider Gay De La Torre MD Unavailable [phone] Encounter Details Date Type Department Care Team (Late Contact Info) Description 04/26/2024 Clinisync Result Encounter [facility] External Department Unsolicited Judy Arciniega MD [address], [address] [address] Social History Tobacco Use Types Packs/Day Years [...] EDT Consult [facility] [address] [facility] 150 [place] [address] Terence Blum MD 7[address] [facility] 150 [place] [address] 03/19/2025 10:20 AM EDT Office Visit [facility] [address] [place] [address] Mary Grace Mejias MD [address] [facility] 130 [place] [address] 07/25/2025 11:00 AM EST Office [facility] [address] [place] [address] Cynthia English MD [address] [place] [address] documented as of this encounter Procedures Procedure Name Priority Date/Time Associated Diagnosis Comments SEGMENTAL BLOOD PRESSURE 04/26/2024 12:29 PM EST documented in this encounter Results * SEGMENTAL BLOOD PRESSURE (04/26/2024 12:29 PM EST) Anatomical Region Laterality Modality Radiographic Melody ging 04/26/2024 12:2 9 PM EST Narrative 04/26/2024 12:31 PM EST [address] [address] Vein Report Signed Patient: JONES PANIAGUA MR#: [id number] : 1980 Acct:[id number] Age/Sex: 43 / F ADM Date: 04/26/24 Loc: VC Attending Dr: Judy Arciniega M.D. Ordering Physician: Judy Arciniega M.D. Date of Service: 04/26/24 Procedure(s): VC SEGMENTAL PRESSURES Accession Number(s): [id number] cc: GAY DE LA TORRE ; Judy Arciniega M.D. [address] [address] Patient Name: JONES PANIAGUA MRN: [id number] date: 1980 Sex: F Assigned Patient Location: VC Current Patient Location: Accession/Order Number: [id number] Exam Date: 04/26/2024 10:45 Report Date: 04/26/2024 12:29 At the request of: JUDY ARCINIEGA Procedure: VC SEGMENTAL PRESSURES EXAM: VC SEGMENTAL PRESSURES HISTORY: I73.9 COMPARISON: None. FINDINGS: Segmental pressures presented as follows (right, left) in mmHg. Brachial: 102, 109 Upper thigh: 175, 183 Lower thigh: 166, 177 Calf: 140, 143 DPA: 123, 148 ADMITTING COORDINATOR: 139, 155 1st Toe: 141, 143 SAMUEL: [...] Signed By: 04/26/24 1231 DD/ 1229 TD/TT: Computer Bookkeeper: Procedure Note Radiology, Radiologist, MD - 04/26/2024 [place] [address] Vein Report Signed Patient: JONES PANIAGUA BMR#: [id number] : 1980Acct:[id number] Age/Sex: 43 / FADM Date: 04/26/24 Loc: Attending Dr: Judy Arciniega M.D. Ordering Physician: Judy Arciniega M.D. Date of Service: 04/26/24 Procedure(s): VC SEGMENTAL PRESSURES Accession Number(s): [id number] cc: GAY DE LA TORRE ; Judy Arciniega M.D. The [place] [address] Patient Name: JONES PANIAGUA MRN: [id number] date: 1980 Sex: F Assigned Patient Location: Current Patient Location: VC Accession/Order Number: [id number] Exam Date: 04/26/2024 10:45 Report Date: 04/26/2024 12:29 At the request of: JUDY ARCINIEGA Procedure: VC SEGMENTAL PRESSURES EXAM: VC SEGMENTAL PRESSURES HISTORY: I73.9 COMPARISON: None. FINDINGS: Segmental pressures presented as follows (right, left) in mmHg. Brachial: 102, 109 Upper thigh: 175, 183 Lower thigh: 166, 177 Calf: 140, 143 DPA: 123, 148 ADMITTING COORDINATOR: 139, 155 1st Toe: 141, 143 SAMUEL: [...] M.D. Signed By:04/26/24 1231 DD/ 1229 TD/TT: Computer Bookkeeper: us Judy Arciniega MD IMG XR PROCEDURES Final Resu lt documented in this encounter Visit Diagnoses Not on filedocumented in this encounter Care Teams Certified Genetic Counselor Relationship Specialty Start Date End Date Charles Nicole MD PCP - General Family Medicine 02/09/24 07/17/24 Gay De La Torre MD [address] [place], [place] [address] Referring Physician Family Medicine 07/18/24 documented as of this encounter
--- OUTSIDE RECORDS SUMMARY | 2025-02-24 23:56 | XMS_ITS | CCD ---
Author Organization [facility] Care Team Providers Care Student Development Specialist Name Role Phone MICHELNERY VICTOR MANUEL Lynne Referring Unavailable Unavailable Primary Care Provider UnavailJONAS Stuart Referring Unavailable Britt WAREHOUSE DISTRIBUTION SPECIALIST.TRUE, Gay Primary Care Provider Mirela Kelsey Unavailable Britt WAREHOUSE DISTRIBUTION SPECIALIST.SPEECH THERAPY DIRECTOR, Gay Primary Care Provider Manuel Ferris MD [...] Care Provider Mitali THORPE-TRUE, Michelle L Unavailable [phone] Unavailable Primary Care Provider UnavailAurora Carney MD Unavailable Britt TABOR, Gay S Primary Care Provider Manuel Ferris MD Primary Care Provider [phone] MD Adolfo Kang Attending Provider CARISSA Enciso-C Gay Estrada Primary Care Provider Charles Nicole MD Primary Care Provider CALOS MENDOZA Attending Unavailable Unavailable Primary Care Provider UnavailManuel Calixto MD Unavailable Britt CORRUGATOR OPERATOR HELPER-C, Gay Estrada Primary Care Provider [phone] Jorge Luis LEE, Adolfo S Attending Provider ALHAJI HEAD Attending Unavailable MANUEL FERRIS Primary Care Unavailable ALHAJI HEAD Attending Unavailable VAIBHAV CARVALHO Referring Unavailable MANUEL FERRIS Primary Care Unavailable Gay Enciso MD Unavailable Mitali TABOR, Michelle London Unavailable [phone] Aurora Patel MD Unavailable Britt TABOR Gay S Primary Care Provider HOLM, SAENZ M Attending Unavailable BRITT, GAY S Primary Care Unavailable HOLMLOIS M Attending Unavailable LOIS HOLM M Referring Unavailable BRITT, GAY S Primary Care Unavailable Britt CORRUGATOR OPERATOR HELPER-C, Gay Natalie Primary Care Provider [phone] Jorge Luis LEE, Adolfo Jane Attending Provider [phone] Britt CORRUGATOR OPERATOR HELPER-C, Gay Natalie Primary Care Provider [phone] Jorge Luis LEE, Adolfo Jane Attending Provider Margie Arnett NP Attending Provider [phone] Britt CORRUGATOR OPERATOR HELPER-C, Gay Natalie Primary Care Provider Jorge Luis LEE, Adolfo Jane Attending Provider [phone] Bandar Portillo APRN Attending Provider Adolfo Kang [...] Attending Provider Janes Barfield MD Attending Provider [phone] Jorge Luis LEE, Adolfo Jane Other Provider BERNABE ENGLISH Attending Unavailable GORDO BARFIELD Attending Unavailable LUAN VALDIVIA Attending Unavailable MELISSA HUDDLESTON Attending Unavailable OLY PLASCENCIA Referring Unavailable BERNABE ENGLISH Attending Unavailable OLY PLASCENCIA Attending Unavailable MARKY MIKE Attending Unavailable GORDO BARFIELD Attending Unavailable GAY ENCISO Referring Unavailable OLY PLASCENCIA Attending Unavailable Allergies Allergy Classification Reported Allergen(s) Allergy Type Date of Onset Reaction(s) Facility Dihydrofolate Reductase Inhibitors (antibiotic) (3 sources) Trimethoprim Drug Allergy Other: See Comments [facility] Doxycycline (3 sources) Doxycycline Drug Allergy Other: See Comments [facility] Latex (3 sources) Latex Substance Allergy Rash [facility] Lincosamides (antibiotic) (3 sources) Clindamycin Drug Allergy Unknown [facility] Opioid Agonists (3 sources) Codeine Drug Allergy Other: See Comments [facility] Sulfamethoxazole / Trimethoprim (4 sources) Sulfamethoxazole / Trimethoprim Drug Allergy [facility] Sulfonamides (antibiotic) (3 sources) Sulfamethoxazole Drug Allergy Other: See Comments [facility] Work Phone: (20 sources) Codeine; Translations: [CODEINE] Drug Allergy Other: See Comments [facility] (20 sources) Latex; Translations: [LATEX] Drug Allergy Rash [facility] (20 sources) Sulfamethoxazole; Translations: [SULFAMETHOXAZOLE] Drug Allergy GI Upset, Other: See Comments [facility] (20 sources) Clindamycin; Translations: [CLINDAMYCIN] Drug Allergy Unknown [facility] (4 sources) Sulfamethoxazole / Trimethoprim Drug Allergy lymph swelling [facility] Other (20 sources) Doxycycline; Translations: [DOXYCYCLINE] Drug Allergy Other: See Comments, Other, Unknown, Other (See Comments) [facility] (20 sources) Sulfamethoxazole / Trimethoprim; Translations: [SULFAMETHOXAZOLE-T RIMETHOPRIM] Drug Allergy Swelling, Other, GI Disturbance, Other (See Comments) [facility] (20 sources) Trimethoprim; Translations: [TRIMETHOPRIM] Drug Allergy Other: See Comments [facility] (1 source) Latex Drug allergy (disorder) [facility] (1 source) Sulfamethoxazole / Trimethoprim Drug Allergy [facility] (20 sources) Sulfamethoxazole Allergy to substance [facility] (20 sources) Latex Propensity to adverse reactions Rash [facility] (1 source) Omeprazole; Translations: [OMEPRAZOLE] Drug Allergy [facility] Repository (1 source) pantoprazole; Translations: [PANTOPRAZOLE] Drug Allergy [facility]ository (1 source) Clindamycin Drug Allergy [facility] (1 source) Sulfamethoxazole Drug Allergy [facility] (1 source) Trimethoprim Drug Allergy [facility] Medications Current Medications Medication Drug [...] other organ involvement (HCC) , Encounter for halfway 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 TAKE 3 TABLETS BY MOUTH DAILY WITH FOOD. HOLD IF ON ANTIBIOTICS OR ILL. 90 tablet 3 02/16/2023 Active Start: 08-19-2022 End: 11-24-2022 take 2 tablets by mouth once daily at mealtime azaTHIOprine (IMURAN) 50 mg tablet Indications: Other systemic lupus erythematosus with other organ involvement (HCC) , Encounter for halfway 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 Take 2tab daily [...] times a day as needed. 02/01/2024 Active arajblvnglYYFAH-bkkutr-xsain belia (BMX 1:1:1) 1:1:1 liqd (20 sources) Start: 07-12-2024 take 5 mL by mouth every six hours as needed jrpzipzzenKHKFK-rvacbc-ogliikfbf (BMX 1:1:1) 1:1:1 liqd Take 5 mL [...] Comment on above: Take 1 capsule by [facility] once daily. ergocalciferol 1.25 mg oral capsule (20 sources) Provitamin D2 Compound Start: 11-13-2024 Ergocalciferol (Vitamin D2) 1,250 mcg (50,000 unit) capsule Active 41108 UNIT PO 3 Times a week November [...] D2) 1,250 mcg (50,000 unit) capsule Discontinued 50901 UNIT PO every week October 20, 2023 [...] 0 03/06/2021 Active take 1 capsule by [facility] every week ergocalciferol (Vitamin D2) 1.25 MG (43475 UT) capsule Take 50,000 Units by mouth [...] Start: 10-20-2023 take 4 tablets by mo [facility] once daily Metoprolol Tartrate 50 mg [...] Active Start: 05-25-2022 [facility] metoprolol tartrate, [...] Start: 01-19-2022 take 1 capsule by mo [facility] once daily naltrexone capsule 1 mg [...] 0.4 mg unde r the tongue. nystatin 302340 unt/ml oral suspension (20 sources) Polyene Antifungal [...] swallow Start: 07-25-2024 End: 08-08-2024 nystatin (Mycostatin) 410173 UNIT/ML suspension Indications: Rash and other nonspecific [...] g 11 07/25/2024 Active Start: 08-16-2023 tacrolimus ([place] OTOPIC) 0.1 % ointment Apply 1 Application [...] on above: Take 1 capsule by mo meh twice daily. pravastatin sodium 20 mg oral [...] Drug therapy status; Translations: [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 term care social worker 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] Episodic Other aftercare (1 source) Polypharmacy ; Translations: [Other long term care social worker (current) drug therapy] Episodic Other aftercare (1 source) Long-term current use of drug therapy; Translations: [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 term care social worker 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] 11-11-2023 Episodic Other [...] (20 sources) Drug therapy finding; Translations: [Other halfway (current) drug therapy] Onset: 1 Episodic Other aftercare (20 sources) H/O: high risk medication; Translations: [Other halfway (current) drug therapy] Onset: 3 06-15-2022 Episodic Other aftercare (1 source) Other long term care social worker (current) drug therapy; Translations: [[facility] HAY BUCK[facility]ER 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 THERAPY] Onset: 2 Episodic Other aftercare (20 sources) Long-term current use of systemic steroid; Translations: [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 Performed By: #### U HCG #### [address] BI US BREAST LIMITED LEFTon 01-26-2025 [...] Normal Not Available CNPNon 01-18-[address] [facility] 25(OH)D3 [place] 2024 25-hydroxyvitamin D3 [Mass/Vol] 32.2 ng/mL Normal 31.0-80.0 [facility] Comment on above: Order Comment: Speci men Type: BLOOD SPECIMENOrdering Facility: [facility] Address: [address] [place] [address] Performed By: #### 1 989-3 ####[facility] LABIA [id number] [place] [address] [place] BLOOD TB SCREENon 01-11-2025 M. tuberculosis tuberculin stim IFN-g Ql (Bld) Negative Normal [facility] Comment on above: Order Comment: Speci men Type: BLOOD SPECIMENOrdering Facility: [facility] Address: [address] [place] [address] Performed By: #### I NFTBP ####[facility] LABIA [id number] [place] [address] [place] MITOGEN MINUS NIL >9.97 Normal >=0.50 [facility] Comment on above: Order Comment: Speci men Type: BLOOD SPECIMENOrdering Facility: [facility] Address: [address] [place] [address] Performed By: #### I NFTBP ####[facility] LABIA [id number] [place] [address] [place] TB GAMMA INTERPRETATION Normal [facility] Comment on above: Order Comment: Speci men Type: BLOOD SPECIMENOrdering Facility: [facility] Address: [address] [place] [address] Performed By: #### I NFTBP ####[facility] LABIA [id number] [place] [address] [place] TB NIL 0.03 IU/mL Normal <=8.00 [facility] Comment on above: Order Comment: Speci men Type: BLOOD SPECIMENOrdering Facility: [facility] Address: [address] [place] [address] Performed By: #### I NFTBP ####[facility] LABIA [id number] [address] TB1 AG MINUS NIL 0.01 IU/mL Normal <0.35 [facility] Comment on above: Order Comment: Speci men Type: BLOOD SPECIMENOrdering Facility: [facility] Address: [address] [place] [address] Performed By: #### I NFTBP ####[facility] LABIA [id number] [address] TB2 AG MINUS NIL 0.01 IU/mL Normal <0.35 [facility] Comment on above: Order Comment: Speci men Type: BLOOD SPECIMENOrdering Facility: [facility] Address: [address] [place] [address] Performed By: #### I NFTBP ####[facility] LABIA [id number] [address] [place] CBC panel Auto (Bld)on 01-11 Erythrocyte distribution width (RBC) [Ratio] 14.5 % 11.5 - 15.0 % [facility] Hematocrit (Bld) [Volume fraction] 41.5 % 36.0 - 46.0 % [facility] Hemoglobin (Bld) [Mass/Vol] 13.8 g/dL 11.5 - 15.5 g/dL [facility] Interpretation and review of laboratory results Abnormal [facility] MCH (RBC) [Entitic mass] 32.2 pg 26.0 - 34.0 pg [facility] MCHC (RBC) [Mass/Vol] 33.3 g/dL 30.5 - 36.0 g/dL [facility] MCV (RBC) [Entitic vol] 96.7 fL 80.0 - 100.0 fL [facility] Nucleated RBC (Bld) [#/Vol] NINF [facility] Platelet mean volume (Bld) [Entitic vol] 10.6 fL 9.0 - 12.7 fL [facility] Platelets (Bld) [#/Vol] 265 10*3/uL [facility] RBC (Bld) [#/Vol] 4.29 10*6/uL 3.90 - 5.2 0 m/uL [facility] WBC (Bld) [#/Vol] 12.61 10*3/uL [facility] Erythrocyte distribution width (RBC) [Ratio] 14.5 % Normal 11.5-15.0 [facility] Comment on above: Order Comment: Speci men Type: BLOOD SPECIMENOrdering Facility: [facility] Address: [address] [place] [address] Performed By: #### 5 8410-2 ####[facility] LABIA [id number] [place] [address] Hematocrit (Bld) [Volume fraction] 41.5 % Normal 36.0-46.0 [facility] Comment on above: Order Comment: Speci men Type: BLOOD SPECIMENOrdering Facility: [facility] Address: [address] [place] [address] Performed By: #### 5 8410-2 ####[facility] LABIA [id number] [place] [address] Hemoglobin (Bld) [Mass/Vol] 13.8 g/dL Normal 11.5-15.5 [facility] Comment on above: Order Comment: Speci men Type: BLOOD SPECIMENOrdering Facility: [facility] Address: [address] [place] [address] Performed By: #### 5 8410-2 ####[facility] LABIA [id number] [place] [address] MCH (RBC) [Entitic mass] 32.2 pg Normal 26.0-34.0 [facility] Comment on above: Order Comment: Speci men Type: BLOOD SPECIMENOrdering Facility: [facility] Address: [address] [place] [address] Performed By: #### 5 8410-2 ####[facility] LABCLIA [id number] [place] [address] MCHC (RBC) [Mass/Vol] 33.3 g/dL Normal 30.5-36.0 [facility] Comment on above: Order Comment: Speci men Type: BLOOD SPECIMENOrdering Facility: [facility] Address: [address] [place] [address] Performed By: #### 5 8410-2 ####[facility] LABCLIA [id number] [place] [address] MCV (RBC) [Entitic vol] 96.7 fL Normal 80.0-100.0 [facility] Comment on above: Order Comment: Speci men Type: BLOOD SPECIMENOrdering Facility: [facility] Address: [address] [place] [address] Performed By: #### 5 8410-2 ####[facility] LABIA [id number] [place] [address] Nucleated RBC (Bld) [#/Vol] 10*3/uL Normal <0.01 [facility] Comment on above: Order Comment: Speci men Type: BLOOD SPECIMENOrdering Facility: [facility] Address: [address] [place] [address] Performed By: #### 5 8410-2 ####[facility] LABCLIA [id number] [place] [address] Platelet mean volume (Bld) [Entitic vol] 10.6 fL Normal 9.0-12.7 [facility] Comment on above: Order Comment: Speci men Type: BLOOD SPECIMENOrdering Facility: [facility] Address: [address] [place] [address] Performed By: #### 5 8410-2 ####[facility] LABCLIA [id number] [place] [address] Platelets (Bld) [#/Vol] 265 10*3/uL Normal 150-400 [facility] Comment on above: Order Comment: Speci men Type: BLOOD SPECIMENOrdering Facility: [facility] Address: [address] [place] [address] Performed By: #### 5 8410-2 ####[facility] LABCLIA [id number] [place] [address] RBC (Bld) [#/Vol] 4.29 10*6/uL Normal 3.90-5.20 [facility] Comment on above: Order Comment: Speci men Type: BLOOD SPECIMENOrdering Facility: [facility] Address: [address] [place] [address] Performed By: #### 5 8410-2 ####[facility] LABCLIA [id number] [place] [address] WBC (Bld) [#/Vol] 12.61 10*3/uL High 3.70-11.00 [facility] Comment on above: Order Comment: Speci men Type: BLOOD SPECIMENOrdering Facility: [facility] Address: [address] [place] [address] Performed By: #### 5 8410-2 ####[facility] LABCLIA [id number] [place] [address] [facility] CRP [Mass/Vol] mg/L Normal <0.9 [facility] Comment on above: Order Comment: Speci men Type: BLOOD SPECIMENOrdering Facility: [facility] Address: [address] [place] [address] Performed By: #### 2 132-9, 1988- ####[facility] LABCLIA [id number] [place] [id number] [facility] [place] Comprehensive metabolic 2000 panelOrdered By: Josse Merlos on 01-11-2025 Albumin [Mass/Vol] 3.9 g/dL 3.9 - 4.9 g/dL [facility] ALP [Catalytic activity/Vol] 83 U/L 34 - 123 U/L [facility] ALT [Catalytic activity/Vol] 42 U/L High 7 - 38 U/L [facility] Anion gap [Moles/Vol] 10 mmol/L 8 - 15 mmol/L [facility] AST [Catalytic activity/Vol] 22 U/L 13 - 35 U/L [facility] Bilirubin [Mass/Vol] 0.2 mg/dL 0.2 - 1 .3 mg/dL [facility] Calcium [Mass/Vol] 9.7 mg/dL 8.5 - 10. 2 mg/dL [facility] Chloride [Moles/Vol] 103 mmol/L 98 - 10 7 mmol/L [facility] CO2 [Moles/Vol] 23 mmol/L 22 - 30 mmol/L [facility] Creatinine [Mass/Vol] 0.50 mg/dL Low 0.58 - 0.96 mg/dL [facility] GFR/1.73 sq M.predicted among non-blacks MDRD (S/P/Bld) [Vol rate/Area] 119 mL/min/{1.73_m2} - PINF [facility] Comment on above: Estimated Glomerular Filtration Rate [...] 221 mg/dL High 74 - 99 mg/dL [facility] Comment on above: The [place] Diab[employer] s Association (ADA) provides guidance for [...] Standards of Medical Care in Diabetes 2016, [place] [employer]. Diabetes Care. 2016.39(Suppl 1). Interpretation and review of laboratory results Abnormal [facility] Potassium [Moles/Vol] 4.1 mmol/L 3.7 - 5.1 mmol/L [facility] Protein [Mass/Vol] 6.8 g/dL 6.3 - 8.0 g/dL [facility] Sodium [Moles/Vol] 136 mmol/L 136 - 144 mmol/L [facility] Urea nitrogen [Mass/Vol] 15 mg/dL 7 - 21 mg/dL [facility] Comprehensive metabolic 2000 panelon 01-11-2025 Albumin [Mass/Vol] 3.9 g/dL Normal 3.9-4.[address] [facility] Comment on above: Order Comment: Speci men Type: BLOOD SPECIMENOrdering Facility: [facility] Address: [address] [place] [address] Performed By: #### 2 4323-8 ####[facility] LABCLIA [id number] [place] [address] ALP [Catalytic activity/Vol] 83 U/L Normal 34-123 [facility] Comment on above: Order Comment: Speci men Type: BLOOD SPECIMENOrdering Facility: [facility] Address: [address] [place] [address] Performed By: #### 2 4323-8 ####[facility] LABCLIA [id number] [place] [address] ALT [Catalytic activity/Vol] 42 U/L High 7-38 [facility] Comment on above: Order Comment: Speci men Type: BLOOD SPECIMENOrdering Facility: [facility] Address: [address] [place] [address] Performed By: #### 2 4323-8 ####[facility] LABCLIA [id number] [place] [address] Anion gap [Moles/Vol] 10 mmol/L Normal 8-15 [facility] Comment on above: Order Comment: Speci men Type: BLOOD SPECIMENOrdering Facility: [facility] Address: [address] [place] [address] Performed By: #### 2 4323-8 ####[facility] LABCLIA [id number] [place] [address] AST [Catalytic activity/Vol] 22 U/L Normal 13-35 [facility] Comment on above: Order Comment: Speci men Type: BLOOD SPECIMENOrdering Facility: [facility] Address: [address] [place] [address] Performed By: #### 2 4323-8 ####[facility] LABCLIA [id number] [place] [address] Bilirubin [Mass/Vol] 0.2 mg/dL Normal 0.2-1.3 [facility] Comment on above: Order Comment: Speci men Type: BLOOD SPECIMENOrdering Facility: [facility] Address: [address] [place] [address] Performed By: #### 2 4323-8 ####[facility] LABCLIA [id number] [place] [address] Calcium [Mass/Vol] 9.7 mg/dL Normal 8.5-10.[address] [facility] Comment on above: Order Comment: Speci men Type: BLOOD SPECIMENOrdering Facility: [facility] Address: [address] [place] [address] Performed By: #### 2 4323-8 ####[facility] LABCLIA [id number] [place] [address] Chloride [Moles/Vol] 103 mmol/L Normal 98-107 [facility] Comment on above: Order Comment: Speci men Type: BLOOD SPECIMENOrdering Facility: [facility] Address: [address] [place] [address] Performed By: #### 2 4323-8 ####[facility] LABCLIA [id number] [place] [address] CO2 [Moles/Vol] 23 mmol/L Normal 22-30 [facility] Comment on above: Order Comment: Speci men Type: BLOOD SPECIMENOrdering Facility: [facility] Address: [address] [place] [address] [place] [address] Performed By: #### 2 4323-8 ####[facility] LABCLIA [id number] [place] [address] Creatinine [Mass/Vol] 0.50 mg/dL Low 0.58-0.96 [facility] Comment on above: Order Comment: Speci men Type: BLOOD SPECIMENOrdering Facility: [facility] Address: [address] [place] [address] Performed By: #### 2 4323-8 ####[facility] LABCLIA [id number] [place] [address] eGFRcr SerPlBld CKD-EPI 2020 119 mL/min/1.73m??? Normal >=60 [facility] Comment on above: Order Comment: Speci men Type: BLOOD SPECIMENOrdering Facility: [facility] Address: [address] [place] [address] Result Comment: Erin mated Glomerular Filtration Rate [...] #### 2 4323-8 ####[facility] LABCLIA [id number] [place] [address] Glucose [Mass/Vol] 221 mg/dL High 74-[address] [facility] Comment on above: Order Comment: Speci men Type: BLOOD SPECIMENOrdering Facility: [facility] Address: [address] [place] [address] Result Comment: The [place] Diabetes Association (ADA) provides guidance for cutoff [...] Standards of Medical Care in Diabetes 2016, [place] [employer]. Diabetes Care. 2016.39(Suppl 1). Performed By: #### 2 4323-8 ####[facility] LABCLIA [id number] [place] [address] Potassium [Moles/Vol] 4.1 mmol/L Normal 3.7-5.1 [facility] Comment on above: Order Comment: Speci men Type: BLOOD SPECIMENOrdering Facility: [facility] Address: [address] [place] [address] Performed By: #### 2 4323-8 ####[facility] LABCLIA [id number] [place] [address] Protein [Mass/Vol] 6.8 g/dL Normal 6.3-8.[address] [facility] Comment on above: Order Comment: Speci men Type: BLOOD SPECIMENOrdering Facility: [facility] Address: [address] [place] [address] Performed By: #### 2 4323-8 ####[facility] LABCLIA [id number] [place] [address] Sodium [Moles/Vol] 136 mmol/L Normal 136-[address] [facility] Comment on above: Order Comment: Speci men Type: BLOOD SPECIMENOrdering Facility: [facility] Address: [address] [place] [address] Performed By: #### 2 4323-8 ####[facility] LABCLIA [id number] [place] [address] Urea nitrogen [Mass/Vol] 15 mg/dL Normal 7-21 [facility] Comment on above: Order Comment: Speci men Type: BLOOD SPECIMENOrdering Facility: [facility] Address: [address] [place] [address] Performed By: #### 2 4323-8 ####[facility] LABCLIA [id number] [place] [address] ESR Westergren method (Bld) [Velocity]on 01-11-2025 ESR (Bld) [Velocity] 34 mm/h High 0-20 [facility] Comment on above: Order Comment: Speci men Type: BLOOD SPECIMENOrdering Facility: [facility] Address: [address] [place], [place] [address] Performed By: #### 4 537-7 ####[facility] LABCLIA [id number] [place] [address] [place] HBV core Ab Ser Qlon 025 HBV core Ab Ql (S) Negative Normal Negative [facility] Comment on above: Order Comment: Speci men Type: BLOOD SPECIMENOrdering Facility: [facility] Address: [address] [place] [address] Result Comment: No e vidence of current or past infection with Hepatitis B virus. Should recent infection be suspected, repeat testing may be considered 3-4 weeks after this draw. Performed By: #### 5 195-3, 88073-9, 23557-5 ####[facility] LABCLIA [id number] [address] [place] HBV surface Ab Ql (S)on 12-23 HBV surface Ab Qn (S) 177.77 mIU/mL Normal [facility] Comment on above: Order Comment: Speci men Type: BLOOD SPECIMENOrdering Facility: [facility] Address: [address] [place] [address] Result Comment: <8 m IU/mL: No serological evidence of immunity to Hepatitis B Virus.>/= 8 to <12 mIU/mL: No serological evidence of immunity to Hepatitis B Virus.>/= 12 mIU/mL: Consistent with serological evidence of immunity to Hepatitis B Virus. Performed By: #### 5 195-3, 70973-0, 44340-2 ####[facility] LABCLIA [id number] [address] [address] [place] HBV surface Ab Ser Qlon 12-23 HBV surface Ab Ql (S) Positive Normal [facility] Comment on above: Order Comment: Speci men Type: BLOOD SPECIMENOrdering Facility: [facility] Address: [address] [place] [address] Result Comment: Cons istent with serological evidence of immunity to Hepatitis B Virus. Performed By: #### 5 195-3, 22870-4, 18319-8 ####[facility] LABCLIA [id number] [place] [address] [place] HBV surface Ag Ser Qlon 12-23 HBV surface Ag Ql (S) Negative Normal Negative [facility] Comment on above: Order Comment: Speci men Type: BLOOD SPECIMENOrdering Facility: [facility] Address: [address] [place] [address] Performed By: #### 5 195-3, 78878-9, 34421-1 ####[facility] LABIA [id number] [place] [address] [place] HCV Ab Ser Qlon 01-11-2025 HCV Ab Ql (S) Negative Normal Negative [facility] Comment on above: Order Comment: Speci men Type: BLOOD SPECIMENOrdering Facility: [facility] Address: [address] [place] [address] Result Comment: The result suggests no evidence of infection with Hepatitis C virus. Should recent infection be suspected, repeat testing may be considered 4-6 weeks after this draw. Performed By: #### 1 6128-1 ####[facility] [id number] [place] [address] [place] Vit B12 SerPl-mCncon 025 Cobalamin (Vitamin B12) [Mass/Vol] 710 pg/mL Normal 232-1245 [facility] Comment on above: Order Comment: Speci men Type: BLOOD SPECIMENOrdering Facility: [facility] Address: [address] [place] [address] Performed By: #### 2 132-9, 1987- ####[facility] LABCLIA [id number] [place] [address] [place] CBC W Auto Differential pane l (Bld)on 11-29-2024 Basophils (Bld) [#/Vol] 0.09 10*3/uL Normal <0.11 [facility] Comment on above: Order Comment: Speci men Type: BLOOD SPECIMENOrdering Facility: [facility] Address: [address] [place] [address] Performed By: #### 5 7021-8 ####[facility] LABCLIA [id number] [place] [address] Basophils/100 WBC (Bld) 0.7 % Normal [facility] Comment on above: Order Comment: Speci men Type: BLOOD SPECIMENOrdering Facility: [facility] Address: [address] [place] [address] Performed By: #### 5 7021-8 ####[facility] LABCLIA [id number] [place] [address] Differential cell count method Nom (Bld) Auto Normal [facility] Comment on above: Order Comment: Speci men Type: BLOOD SPECIMENOrdering Facility: [facility] Address: [address] [place] [address] Performed By: #### 5 7021-8 ####[facility] LABCLIA [id number] [place] [address] Eosinophils (Bld) [#/Vol] 0.09 10*3/uL Normal <0.46 [facility] Comment on above: Order Comment: Speci men Type: BLOOD SPECIMENOrdering Facility: [facility] Address: [address] [place] [address] Performed By: #### 5 7021-8 ####[facility] LABCLIA [id number] [place] [address] Eosinophils/100 WBC (Bld) 0.7 % Normal [facility] Comment on above: Order Comment: Speci men Type: BLOOD SPECIMENOrdering Facility: [facility] Address: [address] [place] [address] Performed By: #### 5 7021-8 ####[facility] LABCLIA [id number] [place] [address] Erythrocyte distribution width (RBC) [Ratio] 14.8 % Normal 11.5-15.0 [facility] Comment on above: Order Comment: Speci men Type: BLOOD SPECIMENOrdering Facility: [facility] Address: [address] [place] [address] Performed By: #### 5 7021-8 ####[facility] LABCLIA [id number] [place] [address] Hematocrit (Bld) [Volume fraction] 42.9 % Normal 36.0-46.0 [facility] Comment on above: Order Comment: Speci men Type: BLOOD SPECIMENOrdering Facility: [facility] Address: [address] [place] [address] Performed By: #### 5 7021-8 ####[facility] LABCLIA [id number] [place] [address] Hemoglobin (Bld) [Mass/Vol] 14.0 g/dL Normal 11.5-15.5 [facility] Comment on above: Order Comment: Speci men Type: BLOOD SPECIMENOrdering Facility: [facility] Address: [address] [place] [address] Performed By: #### 5 7021-8 ####[facility] LABCLIA [id number] [place] [address] Immature granulocytes (Bld) [#/Vol] 0.18 10*3/uL High <0.10 [facility] Comment on above: Order Comment: Speci men Type: BLOOD SPECIMENOrdering Facility: [facility] Address: [address] [place] [address] Performed By: #### 5 7021-8 ####[facility] LABCLIA [id number] [place] [address] Immature granulocytes/100 WBC (Bld) 1.5 % Normal [facility] Comment on above: Order Comment: Speci men Type: BLOOD SPECIMENOrdering Facility: [facility] Address: [address] [place] [address] Performed By: #### 5 7021-8 ####[facility] LABCLIA [id number] [place] [address] Lymphocytes (Bld) [#/Vol] 1.99 10*3/uL Normal 1.00-4.00 [facility] Comment on above: Order Comment: Speci men Type: BLOOD SPECIMENOrdering Facility: [facility] Address: [address] [place] [address] Performed By: #### 5 7021-8 ####[facility] LABCLIA [id number] [place] [address] Lymphocytes/100 WBC (Bld) 16.4 % Normal [facility] Comment on above: Order Comment: Speci men Type: BLOOD SPECIMENOrdering Facility: [facility] Address: [address] [place] [address] Performed By: #### 5 7021-8 ####[facility] LABCLIA [id number] [place] [address] MCH (RBC) [Entitic mass] 31.7 pg Normal 26.0-34.0 [facility] Comment on above: Order Comment: Speci men Type: BLOOD SPECIMENOrdering Facility: [facility] Address: [address] [place] [address] Performed By: #### 5 7021-8 ####[facility] LABCLIA [id number] [place] [address] MCHC (RBC) [Mass/Vol] 32.6 g/dL Normal 30.5-36.0 [facility] Comment on above: Order Comment: Speci men Type: BLOOD SPECIMENOrdering Facility: [facility] Address: [address] [place] [address] Performed By: #### 5 7021-8 ####[facility] LABCLIA [id number] [place] [address] MCV (RBC) [Entitic vol] 97.1 fL Normal 80.0-100.0 [facility] Comment on above: Order Comment: Speci men Type: BLOOD SPECIMENOrdering Facility: [facility] Address: [address] [place] [address] Performed By: #### 5 7021-8 ####[facility] LABCLIA [id number] [place] [address] Monocytes (Bld) [#/Vol] 0.67 10*3/uL Normal <0.87 [facility] Comment on above: Order Comment: Speci men Type: BLOOD SPECIMENOrdering Facility: [facility] Address: [address] [place] [address] Performed By: #### 5 7021-8 ####[facility] LABIA [id number] [place] [address] Monocytes/100 WBC (Bld) 5.5 % Normal [facility] Comment on above: Order Comment: Speci men Type: BLOOD SPECIMENOrdering Facility: [facility] Address: [address] [place] [address] Performed By: #### 5 7021-8 ####[facility] LABCLIA [id number] [place] [address] Neutrophils (Bld) [#/Vol] 9.15 10*3/uL High 1.45-7.50 [facility] Comment on above: Order Comment: Speci men Type: BLOOD SPECIMENOrdering Facility: [facility] Address: [address] [place] [address] Performed By: #### 5 7021-8 ####[facility] LABCLIA [id number] [place] [address] Neutrophils/100 WBC (Bld) 75.2 % Normal [facility] Comment on above: Order Comment: Speci men Type: BLOOD SPECIMENOrdering Facility: [facility] Address: [address] [place] [address] Performed By: #### 5 7021-8 ####[facility] LABCLIA [id number] [place] [address] Nucleated RBC (Bld) [#/Vol] 10*3/uL Normal <0.01 [facility] Comment on above: Order Comment: Speci men Type: BLOOD SPECIMENOrdering Facility: [facility] Address: [address] [place] [address] Performed By: #### 5 7021-8 ####[facility] LABCLIA [id number] [place] [address] Nucleated RBC/100 WBC (Bld) [Ratio] 0.0 /[address] [facility] Comment on above: Order Comment: Speci men Type: BLOOD SPECIMENOrdering Facility: [facility] Address: [address] [place] [address] Performed By: #### 5 7021-8 ####[facility] LABCLIA [id number] [place] [address] Platelet mean volume (Bld) [Entitic vol] 9.7 fL Normal 9.0-12.7 [facility] Comment on above: Order Comment: Speci men Type: BLOOD SPECIMENOrdering Facility: [facility] Address: [address] [place] [address] Performed By: #### 5 7021-8 ####[facility] LABCLIA [id number] [place] [address] Platelets (Bld) [#/Vol] 281 10*3/uL Normal 150-400 [facility] Comment on above: Order Comment: Speci men Type: BLOOD SPECIMENOrdering Facility: [facility] Address: [address] [place] [address] Performed By: #### 5 7021-8 ####[facility] LABCLIA [id number] [place] [address] RBC (Bld) [#/Vol] 4.42 10*6/uL Normal 3.90-5.20 [facility] Comment on above: Order Comment: Speci men Type: BLOOD SPECIMENOrdering Facility: [facility] Address: [address] [place] [address] Performed By: #### 5 7021-8 ####[facility] LABIA [id number] [place] [address] WBC (Bld) [#/Vol] 12.17 10*3/uL High 3.70-11.00 [facility] Comment on above: Order Comment: Speci men Type: BLOOD SPECIMENOrdering Facility: [facility] Address: [address] [place] [address] Performed By: #### 5 7021-8 ####[facility] LABIA [id number] [place] [address] CNOVSPon 11-29-2024 CNOVSP Normal [facility] metabolic 2000 panelon 11-29-2024 Albumin [Mass/Vol] 4.1 g/dL Normal 3.9-4.[address] [facility] Comment on above: Order Comment: Speci men Type: BLOOD SPECIMENOrdering Facility: [facility] Address: [address] [place] [address] Performed By: #### 2 4323-8 ####[facility] LABIA [id number] [place] [address] ALP [Catalytic activity/Vol] 61 U/L Normal 34-123 [facility] Comment on above: Order Comment: Speci men Type: BLOOD SPECIMENOrdering Facility: [facility] Address: [address] [place] [address] Performed By: #### 2 4323-8 ####[facility] LABCLIA [id number] [place] [address] ALT [Catalytic activity/Vol] 39 U/L High 7-38 [facility] Comment on above: Order Comment: Speci men Type: BLOOD SPECIMENOrdering Facility: [facility] Address: [address] [place] [address] Performed By: #### 2 4323-8 ####[facility] LABCLIA [id number] [place] [address] Anion gap [Moles/Vol] 13 mmol/L Normal 8-15 [facility] Comment on above: Order Comment: Speci men Type: BLOOD SPECIMENOrdering Facility: [facility] Address: [address] [place] [address] Performed By: #### 2 4323-8 ####[facility] LABCLIA [id number] [place] [address] AST [Catalytic activity/Vol] 16 U/L Normal 13-35 [facility] Comment on above: Order Comment: Speci men Type: BLOOD SPECIMENOrdering Facility: [facility] Address: [address] [place] [address] Performed By: #### 2 4323-8 ####[facility] LABCLIA [id number] [place] [address] Bilirubin [Mass/Vol] 0.2 mg/dL Normal 0.2-1.3 [facility] Comment on above: Order Comment: Speci men Type: BLOOD SPECIMENOrdering Facility: [facility] Address: [address] [place] [address] Performed By: #### 2 4323-8 ####[facility] LABCLIA [id number] [place] [address] Calcium [Mass/Vol] 9.7 mg/dL Normal 8.5-10.[address] [facility] Comment on above: Order Comment: Speci men Type: BLOOD SPECIMENOrdering Facility: [facility] Address: [address] [place] [address] Performed By: #### 2 4323-8 ####[facility] LABCLIA [id number] [place] [address] Chloride [Moles/Vol] 102 mmol/L Normal 98-107 [facility] Comment on above: Order Comment: Speci men Type: BLOOD SPECIMENOrdering Facility: [facility] Address: [address] [place] [address] Performed By: #### 2 4323-8 ####[facility] LABCLIA [id number] [place] [address] CO2 [Moles/Vol] 23 mmol/L Normal 22-30 [facility] Comment on above: Order Comment: Speci men Type: BLOOD SPECIMENOrdering Facility: [facility] Address: [address] [place] [address] Performed By: #### 2 4323-8 ####[facility] LABCLIA [id number] [place] [address] Creatinine [Mass/Vol] 0.58 mg/dL Normal 0.58-0.96 [facility] Comment on above: Order Comment: Speci men Type: BLOOD SPECIMENOrdering Facility: [facility] Address: [address] [place] [address] Performed By: #### 2 4323-8 ####[facility] LABCLIA [id number] [place] [address] Creatinine and Glomerular filtration rate.predicted panel (S/P/Bld) 115 mL/min/1.73m??? Normal >=60 [facility] Comment on above: Order Comment: Speci men Type: BLOOD SPECIMENOrdering Facility: [facility] Address: [address] [place] [address] Result Comment: Erin mated Glomerular Filtration Rate [...] #### 2 4323-8 ####[facility] LABCLIA [id number] [place] [address] Glucose [Mass/Vol] 233 mg/dL High 74-[address] [facility] Comment on above: Order Comment: Semaj men Type: BLOOD SPECIMENOrdering Facility: [facility] Address: [address] [place] [address] Result Comment: The [place] [employer] (ADA) provides guidance for cutoff [...] Standards of Medical Care in Diabetes 2016, [place] [employer]. Diabetes Care. 2016.39(Suppl 1). Performed By: #### 2 4323-8 ####[facility] LABCLIA [id number] [place] [address] Potassium [Moles/Vol] 4.0 mmol/L Normal 3.7-5.1 [facility] Comment on above: Order Comment: Semaj cortés Type: BLOOD SPECIMENOrdering Facility: [facility] Address: [address] [place] [address] Performed By: #### 2 4323-8 ####[facility] LABCLIA [id number] [place] [address] Protein [Mass/Vol] 7.0 g/dL Normal 6.3-8.[address] [facility] Comment on above: Order Comment: Leolai men Type: BLOOD SPECIMENOrdering Facility: [facility] Address: [address] [place] [address] Performed By: #### 2 4323-8 ####[facility] LABCLIA [id number] [place] [address] Sodium [Moles/Vol] 138 mmol/L Normal 136-[address] [facility] Comment on above: Order Comment: Speci men Type: BLOOD SPECIMENOrdering Facility: [facility] Address: [address] [place] [address] Performed By: #### 2 4323-8 ####[facility] LABCLIA [id number] [place] [address] Urea nitrogen [Mass/Vol] 16 mg/dL Normal 7-21 [facility] Comment on above: Order Comment: Speci men Type: BLOOD SPECIMENOrdering Facility: [facility] Address: [address] [place] [address] Performed By: #### 2 4323-8 ####[facility] LABCLIA [id number] [place] [address] Ferritin SerPl-mCncon 2024 Ferritin [Mass/Vol] 63.6 ng/mL Normal 14.7-205.1 [facility] Comment on above: Order Comment: Speci men Type: BLOOD SPECIMENOrdering Facility: [facility] Address: [address] [place] [address] Performed By: #### 5 0190-8, 2284-8, 2276-4, 2132-9 ####[facility] LABCLIA [id number] [place] [address] [place] Folate SerPl-mCncon 11-30-19 25 Folate [Mass/Vol] ng/mL Normal >4.7 [facility] Comment on above: Order Comment: Speci men Type: BLOOD SPECIMENOrdering Facility: [facility] Address: [address] [place] [address] Result Comment: A re sult of > 20 ng/mL is not necessarily indicative of a pathologic or treatable condition: it reflects a limitation of the test methodology.Assay reference range: 4.8 to 24.2 ng/mL. Suitable for detection of folate deficiency.Reference:Folate III (Folate III) [package insert V 1.0 [place]]. [facility], [place], [place]: March 2015. Performed By: #### 5 0190-8, 2284-8, 2276-4, 2132-9 ####[facility] LABCLIA [id number] [place] [address] [place] IMMUNOGLOBULINS,IGG,IGA,IGMo n 11-29-2024 IgA [Mass/Vol] 169 mg/dL Normal 70-400 [facility] Comment on above: Order Comment: Speci men Type: BLOOD SPECIMENOrdering Facility: [facility] Address: [address] [place] [address] Performed By: #### S ERIMM ####[facility] LABCLIA [id number] [place] [address] [place] IgG [Mass/Vol] 596 mg/dL Low 700-1600 [facility] Comment on above: Order Comment: Speci men Type: BLOOD SPECIMENOrdering Facility: [facility] Address: [address] [place] [address] Performed By: #### S ERIMM ####[facility] LABCLIA [id number] [place] [address] [place] IgM [Mass/Vol] 410 mg/dL High 40-230 [facility] Comment on above: Order Comment: Speci men Type: BLOOD SPECIMENOrdering Facility: [facility] Address: [address] [place] [address] Performed By: #### S ERIMM ####[facility] LABCLIA [id number] [place] [id number] [place] Iron and Iron binding capaci ty panelon 11-29-2024 Iron [Mass/Vol] 154 ug/dL Normal 41-186 [facility] Comment on above: Order Comment: Speci men Type: BLOOD SPECIMENOrdering Facility: [facility] Address: [address] [place] [address] Performed By: #### 5 0190-8, 2283-8, 2275-08, 2132-01 ####[facility] LABCLIA [id number] [address] [address] [place] Iron binding capacity [Mass/Vol] 363 ug/dL Normal 232-386 [facility] Comment on above: Order Comment: Speci men Type: BLOOD SPECIMENOrdering Facility: [facility] Address: [address] [place], [place] [address] Performed By: #### 5 0190-8, 2283-8, 2275-08, 2132-01 ####[facility] LABIA [id number] [address] [address] [place] Iron/TIBC [Molar ratio] 42.4 % Normal 15.0-57.0 [facility] Comment on above: Order Comment: Speci men Type: BLOOD SPECIMENOrdering Facility: [facility] Address: [address] [place], [place] [address] Performed By: #### 5 0190-8, 2283-8, 2275-08, 2132-01 ####[facility] LABIA [id number] [address] [address] [place] Vit [facility]12 [facility] 025 Cobalamin (Vitamin B12) [Mass/Vol] 775 pg/mL Normal 232-1245 [facility] Comment on above: Order Comment: Speci men Type: BLOOD SPECIMENOrdering Facility: [facility] Address: [address] [place] [id number] Performed By: #### 5 0190-8, 2283-8, 2275-08, 2132-01 ####[facility] LABIA [id number] [address] [address] [place] CNPNon 11-20-[address] [facility] CNPNon 11-15-[address] [facility] CNPNon 10-06-[address] [facility] 25(OH)D3 SerPl-mCncon 2024 25-hydroxyvitamin D3 [Mass/Vol] 30.9 ng/mL Low 31.0-80.0 [facility] Comment on above: Order Comment: Speci men Type: BLOOD SPECIMENOrdering Facility: [facility] Address: [address] [place] [address] Result Comment: Clas sification of 25 [place] Vitamin D status:Deficiency/Insufficiency: < or = 30 ng/ml.Sufficiency/Optimal Levels: 31-80 ng/mLToxicity: > 100 ng/mL.Test performed by chemiluminescent immunoassay. Performed By: #### 1 989-3 ####[facility] LABCLIA [id number] [address] STATES OF [facility] 25-hydroxyvitamin D3 [Mass/V ol]on 10-02-2024 Interpretation and review of laboratory results Abnormal [facility] The reference range interval was based on an analysis of samples from healthy adults and may not pertain to children from 0-18 years old. [facility] C-REACTIVE PROTEINon 025 CRP [Mass/Vol] mg/dL NINF - 0.9 mg/dL [facility] CBC panel Auto (Bld)on 10-02 Erythrocyte distribution width (RBC) [Ratio] 16.2 % High 11.5 - 15.0 % [facility] Hematocrit (Bld) [Volume fraction] 41.3 % 36.0 - 46.0 % [facility] Hemoglobin (Bld) [Mass/Vol] 13.7 g/dL 11.5 - 15.5 g/dL [facility] Interpretation and review of laboratory results Abnormal [facility] MCH (RBC) [Entitic mass] 31.1 pg 26.0 - 34.0 pg [facility] MCHC (RBC) [Mass/Vol] 33.2 g/dL 30.5 - 36.0 g/dL [facility] MCV (RBC) [Entitic vol] 93.7 fL 80.0 - 100.0 fL [facility] Nucleated RBC (Bld) [#/Vol] NINF [facility] Platelet mean volume (Bld) [Entitic vol] 10.1 fL 9.0 - 12.7 fL [facility] Platelets (Bld) [#/Vol] 265 10*3/uL [facility] RBC (Bld) [#/Vol] 4.41 10*6/uL 3.90 - 5.2 0 m/uL [facility] WBC (Bld) [#/Vol] 10.07 10*3/uL [facility] Erythrocyte distribution width (RBC) [Ratio] 16.2 % High 11.5-15.0 [facility] Comment on above: Order Comment: Speci men Type: BLOOD SPECIMENOrdering Facility: [facility] Address: [address] [place] [address] Performed By: #### 5 8410-2 ####[facility] LABCLIA [id number] [place] [address] Hematocrit (Bld) [Volume fraction] 41.3 % Normal 36.0-46.0 [facility] Comment on above: Order Comment: Speci men Type: BLOOD SPECIMENOrdering Facility: [facility] Address: [address] [place] [address] Performed By: #### 5 8410-2 ####[facility] LABCLIA [id number] [place] [address] Hemoglobin (Bld) [Mass/Vol] 13.7 g/dL Normal 11.5-15.5 [facility] Comment on above: Order Comment: Speci men Type: BLOOD SPECIMENOrdering Facility: [facility] Address: [address] [place] [address] Performed By: #### 5 8410-2 ####[facility] LABIA [id number] [place] [address] MCH (RBC) [Entitic mass] 31.1 pg Normal 26.0-34.0 [facility] Comment on above: Order Comment: Speci men Type: BLOOD SPECIMENOrdering Facility: [facility] Address: [address] [place] [address] Performed By: #### 5 8410-2 ####[facility] LABCLIA [id number] [place] [address] MCHC (RBC) [Mass/Vol] 33.2 g/dL Normal 30.5-36.0 [facility] Comment on above: Order Comment: Speci men Type: BLOOD SPECIMENOrdering Facility: [facility] Address: [address] [place] [address] Performed By: #### 5 8410-2 ####[facility] LABCLIA [id number] [place] [address] MCV (RBC) [Entitic vol] 93.7 fL Normal 80.0-100.0 [facility] Comment on above: Order Comment: Speci men Type: BLOOD SPECIMENOrdering Facility: [facility] Address: [address] [place] [address] Performed By: #### 5 8410-2 ####[facility] LABCLIA [id number] [place] [address] Nucleated RBC (Bld) [#/Vol] 10*3/uL Normal <0.01 [facility] Comment on above: Order Comment: Speci men Type: BLOOD SPECIMENOrdering Facility: [facility] Address: [address] [place] [address] Performed By: #### 5 8410-2 ####[facility] LABCLIA [id number] [place] [address] Platelet mean volume (Bld) [Entitic vol] 10.1 fL Normal 9.0-12.7 [facility] Comment on above: Order Comment: Speci men Type: BLOOD SPECIMENOrdering Facility: [facility] Address: [address] [place] [address] Performed By: #### 5 8410-2 ####[facility] LABCLIA [id number] [place] [address] Platelets (Bld) [#/Vol] 265 10*3/uL Normal 150-400 [facility] Comment on above: Order Comment: Speci men Type: BLOOD SPECIMENOrdering Facility: [facility] Address: [address] [place] [address] Performed By: #### 5 8410-2 ####[facility] LABCLIA [id number] [place] [address] RBC (Bld) [#/Vol] 4.41 10*6/uL Normal 3.90-5.20 [facility] Comment on above: Order Comment: Speci men Type: BLOOD SPECIMENOrdering Facility: [facility] Address: [address] [place] [address] Performed By: #### 5 8410-2 ####[facility] LABCLIA [id number] [place] [address] WBC (Bld) [#/Vol] 10.07 10*3/uL Normal 3.70-11.00 [facility] Comment on above: Order Comment: Speci men Type: BLOOD SPECIMENOrdering Facility: [facility] Address: [address] [place] [address] Performed By: #### 5 8410-2 ####[facility] LABCLIA [id number] [place] [address] CRP SerPl-ncon 10-02-2024 CRP [Mass/Vol] mg/L Normal <0.9 [facility] Comment on above: Order Comment: Speci men Type: BLOOD SPECIMENOrdering Facility: [facility] Address: [address] [place] [address] Performed By: #### 1 988-5 ####[facility] LABCLIA [id number] [place] [id number] [place] CRP [Mass/Vol]on 10-02-2024 Interpretation and review of laboratory results Normal [facility] Comprehensive metabolic 2000 panelOrdered By: Josse Merlos on 10-02-2024 Albumin [Mass/Vol] 3.9 g/dL 3.9 - 4.9 g/dL [facility] ALP [Catalytic activity/Vol] 61 U/L 34 - 123 U/L [facility] ALT [Catalytic activity/Vol] 41 U/L High 7 - 38 U/L [facility] Anion gap [Moles/Vol] 14 mmol/L 8 - 15 mmol/L [facility] AST [Catalytic activity/Vol] 18 U/L 13 - 35 U/L [facility] Bilirubin [Mass/Vol] 0.2 mg/dL 0.2 - 1 .3 mg/dL [facility] Calcium [Mass/Vol] 9.6 mg/dL 8.5 - 10. 2 mg/dL [facility] Chloride [Moles/Vol] 107 mmol/L 98 - 10 7 mmol/L [facility] CO2 [Moles/Vol] 20 mmol/L Low 22 - 30 mmol/L [facility] Creatinine [Mass/Vol] 0.59 mg/dL 0.58 - 0.96 mg/dL [facility] GFR/1.73 sq M.predicted among non-blacks MDRD (S/P/Bld) [Vol rate/Area] 115 mL/min/{1.73_m2} - PINF [facility] Comment on above: Estimated Glomerular Filtration Rate [...] 216 mg/dL High 74 - 99 mg/dL [facility] Comment on above: The [place] Di[employer] Association (ADA) provides guidance for [...] Standards of Medical Care in Diabetes 2016, [place] [employer]. Diabetes Care. 2016.39(Suppl 1). Interpretation and review of laboratory results Abnormal [facility] Potassium [Moles/Vol] 4.1 mmol/L 3.7 - 5.1 mmol/L [facility] Protein [Mass/Vol] 6.8 g/dL 6.3 - 8.0 g/dL [facility] Sodium [Moles/Vol] 141 mmol/L 136 - 144 mmol/L [facility] Urea nitrogen [Mass/Vol] 19 mg/dL 7 - 21 mg/dL [facility] Comprehensive metabolic 2000 panelon 10-02-2024 Albumin [Mass/Vol] 3.9 g/dL Normal 3.9-4.[address] [facility] Comment on above: Order Comment: Speci men Type: BLOOD SPECIMENOrdering Facility: [facility] Address: [address] [place] [address] Performed By: #### 2 4323-8 ####[facility] LABCLIA [id number] [place] [address] ALP [Catalytic activity/Vol] 61 U/L Normal 34-123 [facility] Comment on above: Order Comment: Speci men Type: BLOOD SPECIMENOrdering Facility: [facility] Address: [address] [place] [address] Performed By: #### 2 4323-8 ####[facility] LABCLIA [id number] [place] [address] ALT [Catalytic activity/Vol] 41 U/L High 7-38 [facility] Comment on above: Order Comment: Speci men Type: BLOOD SPECIMENOrdering Facility: [facility] Address: [address] [place] [address] Performed By: #### 2 4323-8 ####[facility] LABCLIA [id number] [place] [address] Anion gap [Moles/Vol] 14 mmol/L Normal 8-15 [facility] Comment on above: Order Comment: Speci men Type: BLOOD SPECIMENOrdering Facility: [facility] Address: [address] [place] [address] Performed By: #### 2 4323-8 ####[facility] LABCLIA [id number] [place] [address] AST [Catalytic activity/Vol] 18 U/L Normal 13-35 [facility] Comment on above: Order Comment: Speci men Type: BLOOD SPECIMENOrdering Facility: [facility] Address: [address] [place] [address] Performed By: #### 2 4323-8 ####[facility] LABCLIA [id number] [place] [address] Bilirubin [Mass/Vol] 0.2 mg/dL Normal 0.2-1.3 [facility] Comment on above: Order Comment: Speci men Type: BLOOD SPECIMENOrdering Facility: [facility] Address: [address] [place] [address] Performed By: #### 2 4323-8 ####[facility] LABCLIA [id number] [place] [address] Calcium [Mass/Vol] 9.6 mg/dL Normal 8.5-10.[address] [facility] Comment on above: Order Comment: Speci men Type: BLOOD SPECIMENOrdering Facility: [facility] Address: [address] [place] [address] Performed By: #### 2 4323-8 ####[facility] LABCLIA [id number] [place] [address] Chloride [Moles/Vol] 107 mmol/L Normal 98-107 [facility] Comment on above: Order Comment: Speci men Type: BLOOD SPECIMENOrdering Facility: [facility] Address: [address] [place] [address] Performed By: #### 2 4323-8 ####[facility] LABCLIA [id number] [place] [address] CO2 [Moles/Vol] 20 mmol/L Low 22-30 [facility] Comment on above: Order Comment: Speci men Type: BLOOD SPECIMENOrdering Facility: [facility] Address: [address] [place] [id number] Performed By: #### 2 4323-8 ####[facility] LABCLIA [id number] [place] [address] Creatinine [Mass/Vol] 0.59 mg/dL Normal 0.58-0.96 [facility] Comment on above: Order Comment: Speci men Type: BLOOD SPECIMENOrdering Facility: [facility] Address: [address] [place] [address] Performed By: #### 2 4323-8 ####[facility] LABCLIA [id number] [place] [address] Creatinine and Glomerular filtration rate.predicted panel (S/P/Bld) 115 mL/min/1.73m??? Normal >=60 [facility] Comment on above: Order Comment: Speci men Type: BLOOD SPECIMENOrdering Facility: [facility] Address: [address] [place] [address] Result Comment: Erin mated Glomerular Filtration Rate [...] #### 2 4323-8 ####[facility] LABCLIA [id number] [place] [address] Glucose [Mass/Vol] 216 mg/dL High 74-[address] [facility] Comment on above: Order Comment: Speci men Type: BLOOD SPECIMENOrdering Facility: [facility] Address: [address] [place], [place] [address] Result Comment: The [place] Diabetes Association (ADA) provides guidance for cutoff [...] Standards of Medical Care in Diabetes 2016, [place] [employer]. Diabetes Care. 2016.39(Suppl 1). Performed By: #### 2 4323-8 ####[facility] LABCLIA [id number] [place] [address] Potassium [Moles/Vol] 4.1 mmol/L Normal 3.7-5.1 [facility] Comment on above: Order Comment: Speci men Type: BLOOD SPECIMENOrdering Facility: [facility] Address: [address] [place] [address] Performed By: #### 2 4323-8 ####[facility] LABCLIA [id number] [place] [address] Protein [Mass/Vol] 6.8 g/dL Normal 6.3-8.[address] [facility] Comment on above: Order Comment: Speci men Type: BLOOD SPECIMENOrdering Facility: [facility] Address: [address] [place] [address] Performed By: #### 2 4323-8 ####[facility] LABCLIA [id number] [place] [address] Sodium [Moles/Vol] 141 mmol/L Normal 136-[address] [facility] Comment on above: Order Comment: Speci men Type: BLOOD SPECIMENOrdering Facility: [facility] Address: [address] [place] [address] Performed By: #### 2 4323-8 ####[facility] LABCLIA [id number] [place] [address] Urea nitrogen [Mass/Vol] 19 mg/dL Normal 7-21 [facility] Comment on above: Order Comment: Speci men Type: BLOOD SPECIMENOrdering Facility: [facility] Address: [address] [place] [address] Performed By: #### 2 4323-8 ####[facility] LABCLIA [id number] [place] [address] ESR Westergren method (Bld) [Velocity]on 10-02-2024 ESR (Bld) [Velocity] 28 mm/h High [facility] Interpretation and review of laboratory results Abnormal [facility] ESR (Bld) [Velocity] 28 mm/h High 0-20 [facility] Comment on above: Order Comment: Speci men Type: BLOOD SPECIMENOrdering Facility: [facility] Address: [address] [place] [address] Performed By: #### 4 537-7 ####[facility] LABCLIA [id number] [place] [id number] [place] VITAMIN D 25 HYDROXYon 10-02 25-hydroxyvitamin D3 [Mass/Vol] 30.9 ng/mL Low 31.0 - 80.0 ng/mL [facility] Comment on above: Classification of 25 [place] Vitamin D status: Deficiency/Insufficiency: < or = 30 ng/ml. Sufficiency/Optimal Levels: 31-80 ng/mL Toxicity: > 100 ng/mL. Test performed by chemiluminescent immunoassay. DNA EXTRACTION BLOODOrdered By: Dominga Araujo on 09-20-2024 CONCENTRATION (NG/UL) 189.3 ng/ul [facility] Total Yield 94.65 ug [facility] Comment on above: Specimens will be av ailable for 3 years from date of collection. To order testing on this specimen for [facility] patients, please place an [facility] order for DNA and RNA for Clinical Testing (SQNUCADD). To order for patients outside of the [facility] system, please request DNA and RNA for Clinical Testing, order code [email or web address]. If additional paperwork is required for testing, please email completed forms to . VOLUME (UL) OF DNA 500 uL [facility] CNOVon 09-19-[address] [facility] DNA EXTRACTION BLOODon 09-19 CONCENTRATION (NG/UL) 189.3 ng/ul Normal [facility] Comment on above: Order Comment: Speci men Type: BLOOD SPECIMENOrdering Facility: [facility] Address: [address] [place] [address] Performed By: #### N UCBLD ####[facility] LIMSCLIA [id number] [place] [address] [place] TOTAL YIELD 94.[address] [facility] Comment on above: Order Comment: Speci men Type: BLOOD SPECIMENOrdering Facility: [facility] Address: [address] [place] [address] Result Comment: Spec imens will be available for 3 years from date of collection. To order testing on this specimen for [facility] patients, please place an [facility] order for DNA and RNA for Clinical Testing (SQNUCADD). To order for patients outside of the [facility] system, please request DNA and RNA for Clinical Testing, order code [email or web address].If additional paperwork is required for testing, please email completed forms to . Performed By: #### N UCBLD ####[facility] LIMSCLIA [id number] [place] [address] [place] VOLUME (UL) OF DNA 500 uL Normal [facility] Comment on above: Order Comment: Speci men Type: BLOOD SPECIMENOrdering Facility: [facility] Address: [address] [place] [address] Performed By: #### N UCBLD ####[facility] LIMSCLIA [id number] [place] [address] [place] CNPNon 09-18-[address] [facility] CNPNon 09-13-[address] [facility] CNOVSPon 09-06-[address] [facility] CNPNon 09-06-[address] [facility] IMMUNOGLOBULINS,IGG,IGA,IGMo n 09-06-2024 IgA [Mass/Vol] 163 mg/dL Normal 70-400 [facility] Comment on above: Order Comment: Speci men Type: BLOOD SPECIMENOrdering Facility: [facility] Address: [address] [place] [address] Performed By: #### S ERIMM ####[facility] LABCLIA [id number] [place] [address] [place] IgG [Mass/Vol] 599 mg/dL Low 700-1600 [facility] Comment on above: Order Comment: Speci men Type: BLOOD SPECIMENOrdering Facility: [facility] Address: [address] [place] [address] Performed By: #### S ERIMM ####[facility] LABCLIA [id number] [place] [address] [place] IgM [Mass/Vol] 387 mg/dL High 40-230 [facility] Comment on above: Order Comment: Speci men Type: BLOOD SPECIMENOrdering Facility: [facility] Address: [address] [place] [address] Performed By: #### S ERIMM ####[facility] LABCLIA [id number] [place] [address] [place] Laboratory - Chemistry and C hemistry - challengeon 09-06-2024 IgA [Mass/Vol] 163 mg/dL 70 - 400 mg/dL [facility] IgG [Mass/Vol] 599 mg/dL Low 700 - 1600 mg/dL [facility] IgM [Mass/Vol] 387 mg/dL High 40 - 230 mg/dL [facility] No Panel Informationon 09-06 Interpretation and review of laboratory results Abnormal [facility] CBC W Auto Differential pane l (Bld)on 08-29-2024 Basophils (Bld) [#/Vol] 0.06 10*3/uL Normal <0.11 [facility] Comment on above: Order Comment: Speci men Type: BLOOD SPECIMENOrdering Facility: [facility] Address: [address] [place] [address] Performed By: #### 5 7021-8 ####[facility] LABCLIA [id number] [place] [address] Basophils/100 WBC (Bld) 0.5 % Normal [facility] Comment on above: Order Comment: Speci men Type: BLOOD SPECIMENOrdering Facility: [facility] Address: [address] [place] [address] Performed By: #### 5 7021-8 ####[facility] LABCLIA [id number] [place] [address] Differential cell count method Nom (Bld) Auto Normal [facility] Comment on above: Order Comment: Speci men Type: BLOOD SPECIMENOrdering Facility: [facility] Address: [address] [place] [address] Performed By: #### 5 7021-8 ####[facility] LABCLIA [id number] [place] [address] Eosinophils (Bld) [#/Vol] 0.08 10*3/uL Normal <0.46 [facility] Comment on above: Order Comment: Speci men Type: BLOOD SPECIMENOrdering Facility: [facility] Address: [address] [place] [address] Performed By: #### 5 7021-8 ####[facility] LABCLIA [id number] [place] [address] Eosinophils/100 WBC (Bld) 0.6 % Normal [facility] Comment on above: Order Comment: Speci men Type: BLOOD SPECIMENOrdering Facility: [facility] Address: [address] [place] [address] Performed By: #### 5 7021-8 ####[facility] LABCLIA [id number] [place] [address] Erythrocyte distribution width (RBC) [Ratio] 16.0 % High 11.5-15.0 [facility] Comment on above: Order Comment: Speci men Type: BLOOD SPECIMENOrdering Facility: [facility] Address: [address] [place] [address] Performed By: #### 5 7021-8 ####[facility] LABCLIA [id number] [place] [address] Hematocrit (Bld) [Volume fraction] 42.9 % Normal 36.0-46.0 [facility] Comment on above: Order Comment: Speci men Type: BLOOD SPECIMENOrdering Facility: [facility] Address: [address] [place] [address] Performed By: #### 5 7021-8 ####[facility] LABCLIA [id number] [place] [address] Hemoglobin (Bld) [Mass/Vol] 13.8 g/dL Normal 11.5-15.5 [facility] Comment on above: Order Comment: Speci men Type: BLOOD SPECIMENOrdering Facility: [facility] Address: [address] [place] [address] Performed By: #### 5 7021-8 ####[facility] LABCLIA [id number] [place] [address] Immature granulocytes (Bld) [#/Vol] 0.23 10*3/uL High <0.10 [facility] Comment on above: Order Comment: Speci men Type: BLOOD SPECIMENOrdering Facility: [facility] Address: [address] [place] [address] Performed By: #### 5 7021-8 ####[facility] LABCLIA [id number] [place] [address] Immature granulocytes/100 WBC (Bld) 1.8 % Normal [facility] Comment on above: Order Comment: Speci men Type: BLOOD SPECIMENOrdering Facility: [facility] Address: [address] [place] [address] Performed By: #### 5 7021-8 ####[facility] LABCLIA [id number] [place] [address] Lymphocytes (Bld) [#/Vol] 2.07 10*3/uL Normal 1.00-4.00 [facility] Comment on above: Order Comment: Speci men Type: BLOOD SPECIMENOrdering Facility: [facility] Address: [address] [place] [address] Performed By: #### 5 7021-8 ####[facility] LABCLIA [id number] [place] [address] Lymphocytes/100 WBC (Bld) 15.8 % Normal [facility] Comment on above: Order Comment: Speci men Type: BLOOD SPECIMENOrdering Facility: [facility] Address: [address] [place] [address] Performed By: #### 5 7021-8 ####[facility] LABCLIA [id number] [place] [address] MCH (RBC) [Entitic mass] 30.2 pg Normal 26.0-34.0 [facility] Comment on above: Order Comment: Speci men Type: BLOOD SPECIMENOrdering Facility: [facility] Address: [address] [place] [address] Performed By: #### 5 7021-8 ####[facility] LABCLIA [id number] [place] [address] MCHC (RBC) [Mass/Vol] 32.2 g/dL Normal 30.5-36.0 [facility] Comment on above: Order Comment: Speci men Type: BLOOD SPECIMENOrdering Facility: [facility] Address: [address] [place] [address] Performed By: #### 5 7021-8 ####[facility] LABCLIA [id number] [place] [address] MCV (RBC) [Entitic vol] 93.9 fL Normal 80.0-100.0 [facility] Comment on above: Order Comment: Speci men Type: BLOOD SPECIMENOrdering Facility: [facility] Address: [address] [place] [address] Performed By: #### 5 7021-8 ####[facility] LABCLIA [id number] [place] [address] Monocytes (Bld) [#/Vol] 0.86 10*3/uL Normal <0.87 [facility] Comment on above: Order Comment: Speci men Type: BLOOD SPECIMENOrdering Facility: [facility] Address: [address] [place] [address] Performed By: #### 5 7021-8 ####[facility] LABCLIA [id number] [place] [address] Monocytes/100 WBC (Bld) 6.6 % Normal [facility] Comment on above: Order Comment: Speci men Type: BLOOD SPECIMENOrdering Facility: [facility] Address: [address] [place] [address] Performed By: #### 5 7021-8 ####[facility] LABCLIA [id number] [place] [address] Neutrophils (Bld) [#/Vol] 9.82 10*3/uL High 1.45-7.50 [facility] Comment on above: Order Comment: Speci men Type: BLOOD SPECIMENOrdering Facility: [facility] Address: [address] [place] [address] Performed By: #### 5 7021-8 ####[facility] LABCLIA [id number] [place] [address] Neutrophils/100 WBC (Bld) 74.7 % Normal [facility] Comment on above: Order Comment: Speci men Type: BLOOD SPECIMENOrdering Facility: [facility] Address: [address] [place] [address] Performed By: #### 5 7021-8 ####[facility] LABCLIA [id number] [place] [address] Nucleated RBC (Bld) [#/Vol] 10*3/uL Normal <0.01 [facility] Comment on above: Order Comment: Speci men Type: BLOOD SPECIMENOrdering Facility: [facility] Address: [address] [place] [address] Performed By: #### 5 7021-8 ####[facility] LABCLIA [id number] [place] [address] Nucleated RBC/100 WBC (Bld) [Ratio] 0.0 /[address] [facility] Comment on above: Order Comment: Speci men Type: BLOOD SPECIMENOrdering Facility: [facility] Address: [address] [place] [address] Performed By: #### 5 7021-8 ####[facility] LABIA [id number] [place] [address] Platelet mean volume (Bld) [Entitic vol] 9.5 fL Normal 9.0-12.7 [facility] Comment on above: Order Comment: Speci men Type: BLOOD SPECIMENOrdering Facility: [facility] Address: [address] [place] [address] Performed By: #### 5 7021-8 ####[facility] LABIA [id number] [place] [address] Platelets (Bld) [#/Vol] 291 10*3/uL Normal 150-400 [facility] Comment on above: Order Comment: Speci men Type: BLOOD SPECIMENOrdering Facility: [facility] Address: [address] [place] [id number] Performed By: #### 5 7021-8 ####[facility] LABIA [id number] [place] [address] RBC (Bld) [#/Vol] 4.57 10*6/uL Normal 3.90-5.20 [facility] Comment on above: Order Comment: Speci men Type: BLOOD SPECIMENOrdering Facility: [facility] Address: [address] [place] [address] Performed By: #### 5 7021-8 ####[facility] LABCLIA [id number] [place] [address] WBC (Bld) [#/Vol] 13.12 10*3/uL High 3.70-11.00 [facility] Comment on above: Order Comment: Speci men Type: BLOOD SPECIMENOrdering Facility: [facility] Address: [address] [place] [address] Performed By: #### 5 7021-8 ####[facility] LABCLIA [id number] [place] [address] Comprehensive metabolic 2000 panelon 08-29-2024 Albumin [Mass/Vol] 4.2 g/dL Normal 3.9-4.[address] [facility] Comment on above: Order Comment: Speci men Type: BLOOD SPECIMENOrdering Facility: [facility] Address: [address] [place] [address] Performed By: #### 2 4323-8 ####[facility] LABCLIA [id number] [place] [address] ALP [Catalytic activity/Vol] 69 U/L Normal 34-123 [facility] Comment on above: Order Comment: Speci men Type: BLOOD SPECIMENOrdering Facility: [facility] Address: [address] [place] [address] Performed By: #### 2 4323-8 ####[facility] LABCLIA [id number] [place] [address] ALT [Catalytic activity/Vol] 38 U/L Normal 7-38 [facility] Comment on above: Order Comment: Speci men Type: BLOOD SPECIMENOrdering Facility: [facility] Address: [address] [place] [address] Performed By: #### 2 4323-8 ####[facility] LABCLIA [id number] [place] [address] Anion gap [Moles/Vol] 12 mmol/L Normal 8-15 [facility] Comment on above: Order Comment: Speci men Type: BLOOD SPECIMENOrdering Facility: [facility] Address: [address] [place] [address] Performed By: #### 2 4323-8 ####[facility] LABCLIA [id number] [place] [address] AST [Catalytic activity/Vol] 15 U/L Normal 13-35 [facility] Comment on above: Order Comment: Speci men Type: BLOOD SPECIMENOrdering Facility: [facility] Address: [address] [place] [address] Performed By: #### 2 4323-8 ####[facility] LABCLIA [id number] [place] [address] Bilirubin [Mass/Vol] 0.2 mg/dL Normal 0.2-1.3 [facility] Comment on above: Order Comment: Speci men Type: BLOOD SPECIMENOrdering Facility: [facility] Address: [address] [place] [address] Performed By: #### 2 4323-8 ####[facility] LABCLIA [id number] [place] [address] Calcium [Mass/Vol] 10.3 mg/dL High 8.5-10.[address] [facility] Comment on above: Order Comment: Speci men Type: BLOOD SPECIMENOrdering Facility: [facility] Address: [address] [place] [address] Performed By: #### 2 4323-8 ####[facility] LABCLIA [id number] [place] [address] Chloride [Moles/Vol] 101 mmol/L Normal 98-107 [facility] Comment on above: Order Comment: Speci men Type: BLOOD SPECIMENOrdering Facility: [facility] Address: [address] [place] [address] Performed By: #### 2 4323-8 ####[facility] LABCLIA [id number] [place] [address] CO2 [Moles/Vol] 26 mmol/L Normal 22-30 [facility] Comment on above: Order Comment: Speci men Type: BLOOD SPECIMENOrdering Facility: [facility] Address: [address] [place] [address] Performed By: #### 2 4323-8 ####[facility] LABCLIA [id number] [place] [address] Creatinine [Mass/Vol] 0.64 mg/dL Normal 0.58-0.96 [facility] Comment on above: Order Comment: Speci men Type: BLOOD SPECIMENOrdering Facility: [facility] Address: [address] [place] [address] Performed By: #### 2 4323-8 ####[facility] LABCLIA [id number] [place] [address] Creatinine and Glomerular filtration rate.predicted panel (S/P/Bld) 113 mL/min/1.73m??? Normal >=60 [facility] Comment on above: Order Comment: Speci men Type: BLOOD SPECIMENOrdering Facility: [facility] Address: [address] [place] [address] Result Comment: Erin mated Glomerular Filtration Rate [...] #### 2 4323-8 ####[facility] LABCLIA [id number] [place] [address] Glucose [Mass/Vol] 139 mg/dL High 74-[address] [facility] Comment on above: Order Comment: Speci men Type: BLOOD SPECIMENOrdering Facility: [facility] Address: [address] [place] [address] Result Comment: The [place] Diabetes Association (ADA) provides guidance for cutoff [...] Standards of Medical Care in Diabetes 2016, [place] [employer]. Diabetes Care. 2016.39(Suppl 1). Performed By: #### 2 4323-8 ####[facility] LABCLIA [id number] [place] [address] Potassium [Moles/Vol] 4.4 mmol/L Normal 3.7-5.1 [facility] Comment on above: Order Comment: Speci men Type: BLOOD SPECIMENOrdering Facility: [facility] Address: [address] [place] [address] Performed By: #### 2 4323-8 ####[facility] LABCLIA [id number] [place] [address] Protein [Mass/Vol] 7.1 g/dL Normal 6.3-8.[address] [facility] Comment on above: Order Comment: Speci men Type: BLOOD SPECIMENOrdering Facility: [facility] Address: [address] [place] [address] Performed By: #### 2 4323-8 ####[facility] LABCLIA [id number] [place] [address] Sodium [Moles/Vol] 139 mmol/L Normal 136-[address] [facility] Comment on above: Order Comment: Speci men Type: BLOOD SPECIMENOrdering Facility: [facility] Address: [address] [place] [address] Performed By: #### 2 4323-8 ####[facility] LABCLIA [id number] [place] [address] Urea nitrogen [Mass/Vol] 18 mg/dL Normal 7-21 [facility] Comment on above: Order Comment: Speci men Type: BLOOD SPECIMENOrdering Facility: [facility] Address: [address] [place] [address] Performed By: #### 2 4323-8 ####[facility] LABCLIA [id number] [place] [address] Ferritin SerPl-mCncon 2024 Ferritin [Mass/Vol] 43.1 ng/mL Normal 14.7-205.1 [facility] Comment on above: Order Comment: Speci men Type: BLOOD SPECIMENOrdering Facility: [facility] Address: [address] [place] [address] Performed By: #### 2 132-9, 2284-8, 2276-4, 87877-6 ####[facility] LABCLIA [id number] [place] [address] [place] Folate SerPl-mCncon 08-30-19 25 Folate [Mass/Vol] ng/mL Normal >4.7 [facility] Comment on above: Order Comment: Speci men Type: BLOOD SPECIMENOrdering Facility: [facility] Address: [address] [place] [address] Result Comment: A re sult of > 20 ng/mL is not necessarily indicative of a pathologic or treatable condition: it reflects a limitation of the test methodology.Assay reference range: 4.8 to 24.2 ng/mL. Suitable for detection of folate deficiency.Reference:Folate III (Folate III) [package insert V 1.0 [place]]. [facility], [place], [place]: March 2015. Performed By: #### 2 132-9, 2284-8, 2276-4, 02173-1 ####[facility] LABCLIA [id number] [place] [address] [place] IgG SerPl-mCncon 08-29-2024 IgG [Mass/Vol] 729 mg/dL Normal 700-1600 [facility] Comment on above: Order Comment: Speci men Type: BLOOD SPECIMENOrdering Facility: [facility] Address: [address] [place] [address] Performed By: #### 2 465-3 ####[facility] LABCLIA [id number] [address] [address] [place] Iron and Iron binding capaci ty panelon 08-29-2024 Iron [Mass/Vol] 80 ug/dL Normal 41-186 [facility] Comment on above: Order Comment: Speci men Type: BLOOD SPECIMENOrdering Facility: [facility] Address: [address] [place] [address] Performed By: #### 2 132-9, 2284-8, 2276-4, 39574-9 ####[facility] LABIA [id number] [place] [address] [place] Iron binding capacity [Mass/Vol] 416 ug/dL High 232-386 [facility] Comment on above: Order Comment: Speci men Type: BLOOD SPECIMENOrdering Facility: [facility] Address: [address] [place] [address] Performed By: #### 2 132-9, 2284-8, 2276-4, 58154-3 ####[facility] LABIA [id number] [address] [address] [place] Iron/TIBC [Molar ratio] 19.2 % Normal 15.0-57.0 [facility] Comment on above: Order Comment: Speci men Type: BLOOD SPECIMENOrdering Facility: [facility] Address: [address] [place], [place] [address] Performed By: #### 2 132-9, 2284-8, 2276-4, 55727-1 ####[facility] LABCLIA [id number] [address] [address] [place] Vit B12 SerPl-mCncon 025 Cobalamin (Vitamin B12) [Mass/Vol] 555 pg/mL Normal 232-1245 [facility] Comment on above: Order Comment: Speci men Type: BLOOD SPECIMENOrdering Facility: [facility] Address: [address] [place] [address] Performed By: #### 2 132-9, 2284-8, 2276-4, 54171-1 ####[facility] LABCLIA [id number] [place] [address] [place] CNPNon 08-28-[address] [facility] [place] [address] Ultrasound Report Signed Patient: ARIADNA HALEY MR#: [id number] : 1980 Acct:[id number] Age/Sex: 43 / F ADM Date: 08/24/24 Loc: US Attending Dr: Gordo Barfield M.D. Ordering Physician: Gordo Barfield M.D. Date of Service: 08/24/24 Procedure(s): US thyroid Accession Number(s): [id number] cc: GAY ENCISO ; Gordo Barfield M.D. [address] [address] Patient Name: ARIADNA HALEY MRN: [id number] date: 1980 Sex: F Assigned Patient Location: US Current Patient Location: US Accession/Order Number: [id number] Exam Date: 08/24/2024 09:09 Report Date: 08/24/2024 [...] this was thought to be cystic. The surgeon assistant today considered it solid and it was given TI-RADS 4 classification. No internal color flow is shown. Size has not significantly changed when measuring in a comparable manner. No other nodularity is seen. US/US thyroid IMPRESSION: SIMILAR SMALL LEFT THYROID NODULE. FOLLOW-UP IN ONE YEAR IS SUGGESTED. Impression dictated by: Simin Nelson M.D.08/24/2024 9:22 AM Dictation Location: [place] [address] Electronically authenticated by: [id number] Y Date: 08/24/2024 09:22 Dictated By: Simin Nelson M.D. Signed By: 08/24/24923 DD/ 1 TD/TT: Proposal Analyst: [facility] Radiology, Radiologist, MD - 08/24/2024 [place] [address] Ultrasound Report Signed Patient: ARIADNA HALEY MR#: [id number] : 1980 Acct:[id number] Age/Sex: 43 / F ADM Date: 08/24/24 Loc: US Attending Dr: Gordo Barfield M.D. Ordering Physician: Gordo Barfield M.D. Date of Service: 08/24/24 Procedure(s): US thyroid Accession Number(s): [id number] cc: GAY ENCISO ; Gordo Barfield M.D. The [place] [id number] Patient Name: ARIADNA HALEY MRN: [facility]:[id number] date: 1980 Sex: F Assigned Patient Location: US Current Patient Location: US Accession/Order Number: [id number] Exam Date: 08/24/2024 09:09 Report Date: 08/24/2024 [...] this was thought to be cystic. The surgeon assistant today considered it solid and it was given TI-RADS 4 classification. No internal color flow is shown. Size has not significantly changed when measuring in a comparable manner. No other nodularity is seen. US/US thyroid IMPRESSION: SIMILAR SMALL LEFT THYROID NODULE. FOLLOW-UP IN ONE YEAR IS SUGGESTED. Impression dictated by: Simin Nelson M.D.08/24/2024 9:22 AM Dictation Location: [place] [address] Electronically authenticated by: [id number] Y Date: 08/24/2024 09:22 Dictated By: Simin Nelson M.D. Signed By: 08/24/24923 DD/ 1 TD/TT: Proposal Analyst: [facility] Radiology Study observation (narrative) [facility] US Thyroid glandOrdered By: Radiologist Radiology on 08-24-2024 [facility] [employer] Work Phone: CNPNon 08-08-[address] [facility] HCG ( test) Marcelo varela Ql (U)Ordered By: Adolfo Kang on 07-19-2024 HCG ( test) Ql (U) Urine human chorionic gonadotropin (hCG) detection by immunoassay [facility] HCG,Urineon 07-19-2024 Beta HCG ( test) Ql (U) Negative Normal [facility] Comment on above: Result Comment: PERF ORMED BY: [place] [address] PATHOLOGIST SENIOR BIOINFORMATICS SCIENTIST HAYDEN LLAMAS M.D. Performed By: #### U HCG #### [address] CNOVon 07-12-[address] [facility] CNPNon 07-09-[address] [facility] 25(OH)D3 SerPl-mCncon 2024 25-hydroxyvitamin D3 [Mass/Vol] 28.5 ng/mL Low 31.0-80.0 [facility] Comment on above: Order Comment: Speci men Type: BLOOD SPECIMENOrdering Facility: [facility] Address: [address] [place] [address] Result Comment: Clas sification of 25 [place] Vitamin D status:Deficiency/Insufficiency: < or = 30 ng/ml.Sufficiency/Optimal Levels: 31-80 ng/mLToxicity: > 100 ng/mL.Test performed by chemiluminescent immunoassay. Performed By: #### 1 989-3 ####[facility] LABCLIA [id number] [place] [address] [place] CBC panel Auto (Bld)on 06-30 Erythrocyte distribution width (RBC) [Ratio] 14.3 % Normal 11.5-15.0 [facility] Comment on above: Order Comment: Speci men Type: BLOOD SPECIMENOrdering Facility: [facility] Address: [address] [place] [address] Performed By: #### 5 8410-2 ####PRESTON COUNT INCLUDES THE [facility] LABIA [id number] [place] [address] [place] Hematocrit (Bld) [Volume fraction] 41.3 % Normal 36.0-46.0 [facility] Comment on above: Order Comment: Speci men Type: BLOOD SPECIMENOrdering Facility: [facility] Address: [address] [place] [address] Performed By: #### 5 8410-2 ####PRESTON COUNT INCLUDES THE [facility] LABIA [id number] [place] [id number] [place] Hemoglobin (Bld) [Mass/Vol] 13.5 g/dL Normal 11.5-15.5 [facility] Comment on above: Order Comment: Speci men Type: BLOOD SPECIMENOrdering Facility: [facility] Address: [address] [place] [address] Performed By: #### 5 8410-2 ####MARQUISET COUNT INCLUDES THE [facility] LABCLIA [id number] [place] [address] [place] MCH (RBC) [Entitic mass] 30.4 pg Normal 26.0-34.0 [facility] Comment on above: Order Comment: Speci men Type: BLOOD SPECIMENOrdering Facility: [facility] Address: [address] [place] [address] Performed By: #### 5 8410-2 ####[facility] LABIA [id number] [place] [id number] [place] MCHC (RBC) [Mass/Vol] 32.7 g/dL Normal 30.5-36.0 [facility] Comment on above: Order Comment: Speci men Type: BLOOD SPECIMENOrdering Facility: [facility] Address: [address] [place] [address] Performed By: #### 5 8410-2 ####[facility] [id number] [place] [id number] [place] MCV (RBC) [Entitic vol] 93.0 fL Normal 80.0-100.0 [facility] Comment on above: Order Comment: Speci men Type: BLOOD SPECIMENOrdering Facility: [facility] Address: [address] [place] [address] Performed By: #### 5 8410-2 ####[facility] LABIA [id number] [place] [id number] [place] Nucleated RBC (Bld) [#/Vol] 10*3/uL Normal <0.01 [facility] Comment on above: Order Comment: Speci men Type: BLOOD SPECIMENOrdering Facility: [facility] Address: [address] [place] [address] Performed By: #### 5 8410-2 ####[facility] LABIA [id number] [place] [address] [place] Platelet mean volume (Bld) [Entitic vol] 9.8 fL Normal 9.0-12.7 [facility] Comment on above: Order Comment: Speci men Type: BLOOD SPECIMENOrdering Facility: [facility] Address: [address] [place] [address] Performed By: #### 5 8410-2 ####AMHDOM COUNT INCLUDES THE [facility] LABCLIA [id number] [place] [address] [place] Platelets (Bld) [#/Vol] 341 10*3/uL Normal 150-400 [facility] Comment on above: Order Comment: Speci men Type: BLOOD SPECIMENOrdering Facility: [facility] Address: [address] [place] [address] Performed By: #### 5 8410-2 ####[facility]ENTERAnahi COUNT INCLUDES THE [facility] LABIA [id number] [place] [id number] [place] RBC (Bld) [#/Vol] 4.44 10*6/uL Normal 3.90-5.20 [facility] Comment on above: Order Comment: Speci men Type: BLOOD SPECIMENOrdering Facility: [facility] Address: [address] [place] [address] Performed By: #### 5 8410-2 ####[facility] THE [facility] LABIA [id number] [place] [id number] [place] WBC (Bld) [#/Vol] 12.66 10*3/uL High 3.70-11.00 [facility] Comment on above: Order Comment: Speci men Type: BLOOD SPECIMENOrdering Facility: [facility] Address: [address] [place] [address] Performed By: #### 5 8410-2 ####[facility] INCLUD[facility] THE [facility] LABIA [id number] [place] [address] [place] [facility] [place] CRP SerPl-mCncon 06-30-2024 CRP [Mass/Vol] 0.1 mg/dL Normal <0.9 [facility] Comment on above: Order Comment: Speci men Type: BLOOD SPECIMENOrdering Facility: [facility] Address: [address] [place] [address] Performed By: #### 2 43207-29, 1987-09 ####AMHERST COUNT INCLUDES THE [facility] LABCLIA [id number] [place] [address] [place] [facility] Comprehensive metabolic 2000 panelon 06-30-2024 Albumin [Mass/Vol] 4.0 g/dL Normal 3.9-4.[address] [facility] Comment on above: Order Comment: Speci men Type: BLOOD SPECIMENOrdering Facility: [facility] Address: [address] [place] [address] Performed By: #### 2 4322-12, 1987-09 ####AMHDOM COUNT INCLUDES THE [facility] LABCLIA [id number] [place] [address] [place] ALP [Catalytic activity/Vol] 52 U/L Normal 34-123 [facility] Comment on above: Order Comment: Speci men Type: BLOOD SPECIMENOrdering Facility: [facility] Address: [address] [place] [address] Performed By: #### 2 4322-12, 1987-09 ####PRESTON COUNT INCLUDES THE [facility] LABIA [id number] [place] [address] [place] ALT [Catalytic activity/Vol] 26 U/L Normal 7-38 [facility] Comment on above: Order Comment: Speci men Type: BLOOD SPECIMENOrdering Facility: [facility] Address: [address] [place] [address] Performed By: #### 2 4322-12, 1987-09 ####AMHDOM COUNT INCLUDES THE [facility] LABIA [id number] [place] [address] [place] Anion gap [Moles/Vol] 10 mmol/L Normal 8-15 [facility] Comment on above: Order Comment: Speci men Type: BLOOD SPECIMENOrdering Facility: [facility] Address: [address] [place] [id number] Performed By: #### 2 4322-12, 1987-09 ####AMHERST COUNT INCLUDES THE [facility] LABCLIA [id number] [place] [address] [place] AST [Catalytic activity/Vol] 12 U/L Low 13-35 [facility] Comment on above: Order Comment: Speci men Type: BLOOD SPECIMENOrdering Facility: [facility] Address: [address] [place] [id number] Performed By: #### 2 4322-12, 1987-09 ####PRESTON COUNT INCLUDES THE [facility] LABCLIA [id number] [place] [address] [place] Bilirubin [Mass/Vol] 0.3 mg/dL Normal 0.2-1.3 [facility] Comment on above: Order Comment: Speci men Type: BLOOD SPECIMENOrdering Facility: [facility] Address: [address] [place] [address] Performed By: #### 2 4322-12, 1987-09 ####PRESTON COUNT INCLUDES THE [facility] LABCLIA [id number] [place] [address] [place] Calcium [Mass/Vol] 9.5 mg/dL Normal 8.5-10.[address] [facility] Comment on above: Order Comment: Speci men Type: BLOOD SPECIMENOrdering Facility: [facility] Address: [address] [place] [address] Performed By: #### 2 4322-12, 1987-09 ####PRESTON COUNT INCLUDES THE [facility] LABCLIA [id number] [place] [address] [place] Chloride [Moles/Vol] 103 mmol/L Normal 98-107 [facility] Comment on above: Order Comment: Speci men Type: BLOOD SPECIMENOrdering Facility: [facility] Address: [address] [place] [address] Performed By: #### 2 8, 1987-09 ####AMHDOM COUNT INCLUDES THE [facility] LABCLIA [id number] [place] [address] [place] CO2 [Moles/Vol] 27 mmol/L Normal 22-30 [facility] Comment on above: Order Comment: Speci men Type: BLOOD SPECIMENOrdering Facility: [facility] Address: [address] [place], [place] [address] Performed By: #### 2 4328, 1987-09 ####AMHERST COUNT INCLUDES THE [facility] LABCLIA [id number] [place] [address] [place] [facility] Creatinine [Mass/Vol] 0.78 mg/dL Normal 0.58-0.96 [facility] Comment on above: Order Comment: Semaj cortés Type: BLOOD SPECIMENOrdering Facility: [facility] Address: [address] [place] [address] Performed By: #### 2 43207-29, 1987-09 ####AMHERST COUNT INCLUDES THE [facility] LABCLIA [id number] [place] [address] [facility] Creatinine and Glomerular filtration rate.predicted panel (S/P/Bld) 97 mL/min/1.73m??? Normal >=60 [facility] Comment on above: Order Comment: Semaj cortés Type: BLOOD SPECIMENOrdering Facility: [facility] Address: [address] [place] [address] Result Comment: Erin mated Glomerular Filtration Rate [...] Performed By: #### 2 43238, 1987-09 ####AMHERST COUNT INCLUDES THE [facility] LABIA [id number] [place] [address] [place] Glucose [Mass/Vol] 116 mg/dL High 74-[address] [facility] Comment on above: Order Comment: Semaj cortés Type: BLOOD SPECIMENOrdering Facility: [facility] Address: [address] [place] [address] Result Comment: The [place] [employer] (ADA) provides guidance for cutoff [...] Standards of Medical Care in Diabetes 2016, [place] [employer]. Diabetes Care. 2016.39(Suppl 1). Performed By: #### 2 4322-12, 1987-09 ####AMHERSAnahi COUNT INCLUDES THE [facility] LABIA [id number] [place] [address] [place] Potassium [Moles/Vol] 3.8 mmol/L Normal 3.7-5.1 [facility] Comment on above: Order Comment: Speci men Type: BLOOD SPECIMENOrdering Facility: [facility] Address: [address] [place] [address] Performed By: #### 2 4322-12, 1987-09 ####AMHERSAnahi COUNT INCLUDES THE [facility] LABIA [id number] [place] [address] [place] Protein [Mass/Vol] 7.6 g/dL Normal 6.3-8.[address] [facility] Comment on above: Order Comment: Speci men Type: BLOOD SPECIMENOrdering Facility: [facility] Address: [address] [place] [address] Performed By: #### 2 4322-12, 1987-09 ####AMHERST COUNT INCLUDES THE [facility] LABCLIA [id number] [place] [address] [place] Sodium [Moles/Vol] 140 mmol/L Normal 136-[address] [facility] Comment on above: Order Comment: Speci men Type: BLOOD SPECIMENOrdering Facility: [facility] Address: [address] [place] [id number] Performed By: #### 2 4322-12, 1987-09 ####AMHERST COUNT INCLUDES THE [facility] LABIA [id number] [place] [address] [place] Urea nitrogen [Mass/Vol] 18 mg/dL Normal 7-21 [facility] Comment on above: Order Comment: Speci men Type: BLOOD SPECIMENOrdering Facility: [facility] Address: [address] [place] [address] Performed By: #### 2 4323-8, 1987-09 ####[facility] COUNT INCLUDES THE [facility] LABCLIA [id number] [place] [id number] [place] ESR Westergren method (Bld) [Velocity]on 06-30-2024 ESR (Bld) [Velocity] 28 mm/h High 0-20 [facility] Comment on above: Order Comment: Speci men Type: BLOOD SPECIMENOrdering Facility: [facility] Address: [address] [place] [address] Performed By: #### 4 537-7 ####[facility] LABCLIA [id number] [place] [address] [place] CNPNon 06-16-[address] [facility] ALLIED HEALTHon 06-13-[address] [facility] CBC W Auto Differential pane l (Bld)on 06-13-2024 Basophils (Bld) [#/Vol] 0.10 10*3/uL [facility] Basophils/100 WBC (Bld) 0.7 % [facility] Differential cell count method Nom (Bld) Auto [facility] Eosinophils (Bld) [#/Vol] 0.15 10*3/uL [facility] Eosinophils/100 WBC (Bld) 1.1 % [facility] Erythrocyte distribution width (RBC) [Ratio] 14.2 % 11.5 - 15.0 % [facility] Hematocrit (Bld) [Volume fraction] 39.0 % 36.0 - 46.0 % [facility] Hemoglobin (Bld) [Mass/Vol] 13.0 g/dL 11.5 - 15.5 g/dL [facility] Immature granulocytes (Bld) [#/Vol] 0.21 10*3/uL High NINF [facility] Immature granulocytes/100 WBC (Bld) 1.5 % [facility] Interpretation and review of laboratory results Abnormal [facility] Lymphocytes (Bld) [#/Vol] 2.16 10*3/uL [facility] Lymphocytes/100 WBC (Bld) 15.4 % [facility] MCH (RBC) [Entitic mass] 30.5 pg 26.0 - 34.0 pg [facility] MCHC (RBC) [Mass/Vol] 33.3 g/dL 30.5 - 36.0 g/dL [facility] MCV (RBC) [Entitic vol] 91.5 fL 80.0 - 100.0 fL [facility] Monocytes (Bld) [#/Vol] 0.79 10*3/uL NINF [facility] Monocytes/100 WBC (Bld) 5.6 % [facility] Neutrophils (Bld) [#/Vol] 10.59 10*3/uL High [facility] Neutrophils/100 WBC (Bld) 75.7 % [facility] Nucleated RBC (Bld) [#/Vol] NINF [facility] Nucleated RBC/100 WBC (Bld) [Ratio] 0.0 % /100 WBC [facility] Platelet mean volume (Bld) [Entitic vol] 9.9 fL 9.0 - 12.7 fL [facility] Platelets (Bld) [#/Vol] 327 10*3/uL [facility] RBC (Bld) [#/Vol] 4.26 10*6/uL 3.90 - 5.2 0 m/uL [facility] WBC (Bld) [#/Vol] 14.00 10*3/uL High [facility] Basophils (Bld) [#/Vol] 0.10 10*3/uL Normal <0.11 [facility] Comment on above: Order Comment: Speci men Type: BLOOD SPECIMENOrdering Facility: [facility] Address: [address] [place] [address] Performed By: #### 5 7021-8 ####[facility] LABCLIA [id number] [place] [address] Basophils/100 WBC (Bld) 0.7 % Normal [facility] Comment on above: Order Comment: Speci men Type: BLOOD SPECIMENOrdering Facility: [facility] Address: [address] [place] [address] Performed By: #### 5 7021-8 ####[facility] LABCLIA [id number] [place] [address] Differential cell count method Nom (Bld) Auto Normal [facility] Comment on above: Order Comment: Speci men Type: BLOOD SPECIMENOrdering Facility: [facility] Address: [address] [place], [place] [address] Performed By: #### 5 7021-8 ####[facility] LABCLIA [id number] [place] [address] Eosinophils (Bld) [#/Vol] 0.15 10*3/uL Normal <0.46 [facility] Comment on above: Order Comment: Speci men Type: BLOOD SPECIMENOrdering Facility: [facility] Address: [address] [place] [address] Performed By: #### 5 7021-8 ####[facility] LABCLIA [id number] [place] [address] Eosinophils/100 WBC (Bld) 1.1 % Normal [facility] Comment on above: Order Comment: Speci men Type: BLOOD SPECIMENOrdering Facility: [facility] Address: [address] [place] [address] Performed By: #### 5 7021-8 ####[facility] LABCLIA [id number] [place] [address] Erythrocyte distribution width (RBC) [Ratio] 14.2 % Normal 11.5-15.0 [facility] Comment on above: Order Comment: Speci men Type: BLOOD SPECIMENOrdering Facility: [facility] Address: [address] [place] [address] Performed By: #### 5 7021-8 ####[facility] LABCLIA [id number] [place] [address] Hematocrit (Bld) [Volume fraction] 39.0 % Normal 36.0-46.0 [facility] Comment on above: Order Comment: Speci men Type: BLOOD SPECIMENOrdering Facility: [facility] Address: [address] [place] [address] Performed By: #### 5 7021-8 ####[facility] LABCLIA [id number] [place] [address] Hemoglobin (Bld) [Mass/Vol] 13.0 g/dL Normal 11.5-15.5 [facility] Comment on above: Order Comment: Speci men Type: BLOOD SPECIMENOrdering Facility: [facility] Address: [address] [place] [address] Performed By: #### 5 7021-8 ####[facility] LABCLIA [id number] [place] [address] Immature granulocytes (Bld) [#/Vol] 0.21 10*3/uL High <0.10 [facility] Comment on above: Order Comment: Speci men Type: BLOOD SPECIMENOrdering Facility: [facility] Address: [address] [place] [address] Performed By: #### 5 7021-8 ####[facility] LABCLIA [id number] [place] [address] Immature granulocytes/100 WBC (Bld) 1.5 % Normal [facility] Comment on above: Order Comment: Speci men Type: BLOOD SPECIMENOrdering Facility: [facility] Address: [address] [place] [address] Performed By: #### 5 7021-8 ####[facility] LABCLIA [id number] [place] [address] Lymphocytes (Bld) [#/Vol] 2.16 10*3/uL Normal 1.00-4.00 [facility] Comment on above: Order Comment: Speci men Type: BLOOD SPECIMENOrdering Facility: [facility] Address: [address] [place] [address] Performed By: #### 5 7021-8 ####[facility] LABCLIA [id number] [place] [address] Lymphocytes/100 WBC (Bld) 15.4 % Normal [facility] Comment on above: Order Comment: Speci men Type: BLOOD SPECIMENOrdering Facility: [facility] Address: [address] [place] [address] Performed By: #### 5 7021-8 ####[facility] LABCLIA [id number] [place] [address] MCH (RBC) [Entitic mass] 30.5 pg Normal 26.0-34.0 [facility] Comment on above: Order Comment: Speci men Type: BLOOD SPECIMENOrdering Facility: [facility] Address: [address] [place] [address] Performed By: #### 5 7021-8 ####[facility] LABCLIA [id number] [place] [address] MCHC (RBC) [Mass/Vol] 33.3 g/dL Normal 30.5-36.0 [facility] Comment on above: Order Comment: Speci men Type: BLOOD SPECIMENOrdering Facility: [facility] Address: [address] [place] [address] Performed By: #### 5 7021-8 ####[facility] LABCLIA [id number] [place] [address] MCV (RBC) [Entitic vol] 91.5 fL Normal 80.0-100.0 [facility] Comment on above: Order Comment: Speci men Type: BLOOD SPECIMENOrdering Facility: [facility] Address: [address] [place] [address] Performed By: #### 5 7021-8 ####[facility] LABCLIA [id number] [place] [address] Monocytes (Bld) [#/Vol] 0.79 10*3/uL Normal <0.87 [facility] Comment on above: Order Comment: Speci men Type: BLOOD SPECIMENOrdering Facility: [facility] Address: [address] [place] [address] Performed By: #### 5 7021-8 ####[facility] LABCLIA [id number] [place] [address] Monocytes/100 WBC (Bld) 5.6 % Normal [facility] Comment on above: Order Comment: Speci men Type: BLOOD SPECIMENOrdering Facility: [facility] Address: [address] [place] [address] Performed By: #### 5 7021-8 ####[facility] LABCLIA [id number] [place] [address] Neutrophils (Bld) [#/Vol] 10.59 10*3/uL High 1.45-7.50 [facility] Comment on above: Order Comment: Speci men Type: BLOOD SPECIMENOrdering Facility: [facility] Address: [address] [place] [address] Performed By: #### 5 7021-8 ####[facility] LABIA [id number] [place] [address] Neutrophils/100 WBC (Bld) 75.7 % Normal [facility] Comment on above: Order Comment: Speci men Type: BLOOD SPECIMENOrdering Facility: [facility] Address: [address] [place] [address] Performed By: #### 5 7021-8 ####[facility] LABCLIA [id number] [place] [address] Nucleated RBC (Bld) [#/Vol] 10*3/uL Normal <0.01 [facility] Comment on above: Order Comment: Speci men Type: BLOOD SPECIMENOrdering Facility: [facility] Address: [address] [place] [address] Performed By: #### 5 7021-8 ####[facility] LABIA [id number] [place] [address] Nucleated RBC/100 WBC (Bld) [Ratio] 0.0 /[address] [facility] Comment on above: Order Comment: Speci men Type: BLOOD SPECIMENOrdering Facility: [facility] Address: [address] [place], [place] [address] Performed By: #### 5 7021-8 ####[facility] LABCLIA [id number] [place] [address] Platelet mean volume (Bld) [Entitic vol] 9.9 fL Normal 9.0-12.7 [facility] Comment on above: Order Comment: Speci men Type: BLOOD SPECIMENOrdering Facility: [facility] Address: [address] [place] [address] Performed By: #### 5 7021-8 ####[facility] LABCLIA [id number] [place] [address] Platelets (Bld) [#/Vol] 327 10*3/uL Normal 150-400 [facility] Comment on above: Order Comment: Speci men Type: BLOOD SPECIMENOrdering Facility: [facility] Address: [address] [place] [address] Performed By: #### 5 7021-8 ####[facility] LABCLIA [id number] [place] [address] RBC (Bld) [#/Vol] 4.26 10*6/uL Normal 3.90-5.20 [facility] Comment on above: Order Comment: Speci men Type: BLOOD SPECIMENOrdering Facility: [facility] Address: [address] [place] [address] Performed By: #### 5 7021-8 ####[facility] LABCLIA [id number] [place] [address] WBC (Bld) [#/Vol] 14.00 10*3/uL High 3.70-11.00 [facility] Comment on above: Order Comment: Speci men Type: BLOOD SPECIMENOrdering Facility: [facility] Address: [address] [place] [address] Performed By: #### 5 7021-8 ####[facility] LABCLIA [id number] [place] [address] CNOVSPon 06-13-2024 CNOVSP Normal [facility] metabolic 2000 panelOrdered By: Josse Merlos on 06-13-2024 Albumin [Mass/Vol] 3.9 g/dL 3.9 - 4.9 g/dL [facility] ALP [Catalytic activity/Vol] 73 U/L 34 - 123 U/L [facility] ALT [Catalytic activity/Vol] 24 U/L 7 - 38 U/L [facility] Anion gap [Moles/Vol] 15 mmol/L 8 - 15 mmol/L [facility] AST [Catalytic activity/Vol] 12 U/L Low 13 - 35 U/L [facility] Bilirubin [Mass/Vol] mg/dL Low 0.2 - 1 .3 mg/dL [facility] Calcium [Mass/Vol] 9.2 mg/dL 8.5 - 10. 2 mg/dL [facility] Chloride [Moles/Vol] 104 mmol/L 98 - 10 7 mmol/L [facility] CO2 [Moles/Vol] 19 mmol/L Low 22 - 30 mmol/L [facility] Creatinine [Mass/Vol] 0.58 mg/dL 0.58 - 0.96 mg/dL [facility] GFR/1.73 sq M.predicted among non-blacks MDRD (S/P/Bld) [Vol rate/Area] 115 mL/min/{1.73_m2} - PINF [facility] Comment on above: Estimated Glomerular Filtration Rate [...] 163 mg/dL High 74 - 99 mg/dL [facility] Comment on above: The [place] Di[employer] Association (ADA) provides guidance for [...] Standards of Medical Care in Diabetes 2016, [place] [employer]. Diabetes Care. 2016.39(Suppl 1). Interpretation and review of laboratory results Abnormal [facility] Potassium [Moles/Vol] 3.9 mmol/L 3.7 - 5.1 mmol/L [facility] Protein [Mass/Vol] 6.8 g/dL 6.3 - 8.0 g/dL [facility] Sodium [Moles/Vol] 138 mmol/L 136 - 144 mmol/L [facility] Urea nitrogen [Mass/Vol] 13 mg/dL 7 - 21 mg/dL [facility] Comprehensive metabolic 2000 panelon 06-13-2024 Albumin [Mass/Vol] 3.9 g/dL Normal 3.9-4.[address] [facility] Comment on above: Order Comment: Speci men Type: BLOOD SPECIMENOrdering Facility: [facility] Address: [address] [place] [address] Performed By: #### 2 4323-8 ####[facility] LABCLIA [id number] [place] [address] ALP [Catalytic activity/Vol] 73 U/L Normal 34-123 [facility] Comment on above: Order Comment: Speci men Type: BLOOD SPECIMENOrdering Facility: [facility] Address: [address] [place] [address] Performed By: #### 2 4323-8 ####[facility] LABCLIA [id number] [place] [address] ALT [Catalytic activity/Vol] 24 U/L Normal 7-38 [facility] Comment on above: Order Comment: Speci men Type: BLOOD SPECIMENOrdering Facility: [facility] Address: [address] [place] [address] Performed By: #### 2 4323-8 ####[facility] LABCLIA [id number] [place] [address] Anion gap [Moles/Vol] 15 mmol/L Normal 8-15 [facility] Comment on above: Order Comment: Speci men Type: BLOOD SPECIMENOrdering Facility: [facility] Address: [address] [place] [address] Performed By: #### 2 4323-8 ####[facility] LABCLIA [id number] [place] [address] AST [Catalytic activity/Vol] 12 U/L Low 13-35 [facility] Comment on above: Order Comment: Speci men Type: BLOOD SPECIMENOrdering Facility: [facility] Address: [address] [place] [address] Performed By: #### 2 4323-8 ####[facility] LABCLIA [id number] [place] [address] Bilirubin [Mass/Vol] mg/dL Low 0.2-1.3 [facility] Comment on above: Order Comment: Speci men Type: BLOOD SPECIMENOrdering Facility: [facility] Address: [address] [place] [address] Performed By: #### 2 4323-8 ####[facility] LABCLIA [id number] [place] [address] Calcium [Mass/Vol] 9.2 mg/dL Normal 8.5-10.[address] [facility] Comment on above: Order Comment: Speci men Type: BLOOD SPECIMENOrdering Facility: [facility] Address: [address] [place] [address] Performed By: #### 2 4323-8 ####[facility] LABCLIA [id number] [place] [address] Chloride [Moles/Vol] 104 mmol/L Normal 98-107 [facility] Comment on above: Order Comment: Speci men Type: BLOOD SPECIMENOrdering Facility: [facility] Address: [address] [place] [address] Performed By: #### 2 4323-8 ####[facility] LABCLIA [id number] [place] [address] CO2 [Moles/Vol] 19 mmol/L Low 22-30 [facility] Comment on above: Order Comment: Speci men Type: BLOOD SPECIMENOrdering Facility: [facility] Address: [address] [place] [address] Performed By: #### 2 4323-8 ####[facility] LABCLIA [id number] [place] [address] Creatinine [Mass/Vol] 0.58 mg/dL Normal 0.58-0.96 [facility] Comment on above: Order Comment: Speci men Type: BLOOD SPECIMENOrdering Facility: [facility] Address: [address] [place] [address] Performed By: #### 2 4323-8 ####[facility] LABCLIA [id number] [place] [address] Creatinine and Glomerular filtration rate.predicted panel (S/P/Bld) 115 mL/min/1.73m??? Normal >=60 [facility] Comment on above: Order Comment: Speci men Type: BLOOD SPECIMENOrdering Facility: [facility] Address: [address] [place] [address] Result Comment: Erin mated Glomerular Filtration Rate [...] #### 2 4323-8 ####[facility] LABIA [id number] [place] [address] Glucose [Mass/Vol] 163 mg/dL High 74-[address] [facility] Comment on above: Order Comment: Speci men Type: BLOOD SPECIMENOrdering Facility: [facility] Address: [address] [place] [address] Result Comment: The [place] Diabetes Association (ADA) provides guidance for cutoff [...] Standards of Medical Care in Diabetes 2016, [place] [employer]. Diabetes Care. 2016.39(Suppl 1). Performed By: #### 2 4323-8 ####[facility] LABCLIA [id number] [place] [address] Potassium [Moles/Vol] 3.9 mmol/L Normal 3.7-5.1 [facility] Comment on above: Order Comment: Speci men Type: BLOOD SPECIMENOrdering Facility: [facility] Address: [address] [place] [address] Performed By: #### 2 4323-8 ####[facility] LABCLIA [id number] [place] [address] Protein [Mass/Vol] 6.8 g/dL Normal 6.3-8.[address] [facility] Comment on above: Order Comment: Speci men Type: BLOOD SPECIMENOrdering Facility: [facility] Address: [address] [place] [address] Performed By: #### 2 4323-8 ####[facility] LABCLIA [id number] [place] [address] Sodium [Moles/Vol] 138 mmol/L Normal 136-[address] [facility] Comment on above: Order Comment: Speci men Type: BLOOD SPECIMENOrdering Facility: [facility] Address: [address] [place] [id number] Performed By: #### 2 4323-8 ####[facility] LABCLIA [id number] [place] [address] Urea nitrogen [Mass/Vol] 13 mg/dL Normal 7-21 [facility] Comment on above: Order Comment: Speci men Type: BLOOD SPECIMENOrdering Facility: [facility] Address: [address] [place] [address] Performed By: #### 2 4323-8 ####[facility] LABCLIA [id number] [place] [address] ESR Westergren method (Bld) [Velocity]on 06-13-2024 ESR (Bld) [Velocity] 30 mm/h High [facility] Interpretation and review of laboratory results Abnormal [facility] ESR (Bld) [Velocity] 30 mm/h High 0-20 [facility] Comment on above: Order Comment: Speci men Type: BLOOD SPECIMENOrdering Facility: [facility] Address: [address] [place] [address] Performed By: #### 4 537-7 ####[facility] LABCLIA [id number] [place] [address] [place] FERRITINon 06-13-2024 Ferritin [Mass/Vol] 30.9 ng/mL 14.7 - 2 05.1 ng/mL [facility] FOLATE, SERUMon 06-13-2024 Folate [Mass/Vol] 19.6 ng/mL 4.7 - PINF ng/mL [facility] Ferritin SerPl-mCncon 2024 Ferritin [Mass/Vol] 30.9 ng/mL Normal 14.7-205.1 [facility] Comment on above: Order Comment: Speci men Type: BLOOD SPECIMENOrdering Facility: [facility] Address: [address] [place] [address] Performed By: #### 2 284-8, 2276-4, 27871-2, 2132-9 ####[facility] LABCLIA [id number] [place] [address] [place] Ferritin [Mass/Vol]on 2024 Interpretation and review of laboratory results Normal [facility] Folate SerPl-mCncon 06-13-19 25 Folate [Mass/Vol] 19.6 ng/mL Normal >4.7 [facility] Comment on above: Order Comment: Speci men Type: BLOOD SPECIMENOrdering Facility: [facility] Address: [address] [place] [address] Performed By: #### 2 284-8, 2276-4, 45821-1, 2132-9 ####[facility] LABCLIA [id number] [place] [address] [place] IMMUNOGLOBULINS,IGG,IGA,IGMo n 06-13-2024 IgA [Mass/Vol] 170 mg/dL Normal 70-400 [facility] Comment on above: Order Comment: Speci men Type: BLOOD SPECIMENOrdering Facility: [facility] Address: [address] [place] [address] Performed By: #### S ERIMM ####[facility] LABCLIA [id number] [place] [address] [place] IgG [Mass/Vol] 663 mg/dL Low 700-1600 [facility] Comment on above: Order Comment: Speci men Type: BLOOD SPECIMENOrdering Facility: [facility] Address: [address] [place] [address] Performed By: #### S ERIMM ####[facility] LABCLIA [id number] [place] [address] [place] IgM [Mass/Vol] 376 mg/dL High 40-230 [facility] Comment on above: Order Comment: Speci men Type: BLOOD SPECIMENOrdering Facility: [facility] Address: [address] [place] [address] Performed By: #### S ERIMM ####[facility] LABCLIA [id number] [place] [address] [place] Iron and Iron binding capaci ty panelon 06-13-2024 Iron [Mass/Vol] 64 ug/dL Normal 41-186 [facility] Comment on above: Order Comment: Speci men Type: BLOOD SPECIMENOrdering Facility: [facility] Address: [address] [place], [place] [address] Performed By: #### 2 284-8, 2276-4, 52559-4, 2131-9 ####[facility] LABCLIA [id number] [place] [id number] [place] Iron binding capacity [Mass/Vol] 409 ug/dL High 232-386 [facility] Comment on above: Order Comment: Speci men Type: BLOOD SPECIMENOrdering Facility: [facility] Address: [address] [place] [address] Performed By: #### 2 284-8, 2276-4, 58089-3, 2131-9 ####[facility] LABIA [id number] [place] [address] [place] Iron/TIBC [Molar ratio] 15.6 % Normal 15.0-57.0 [facility] Comment on above: Order Comment: Speci men Type: BLOOD SPECIMENOrdering Facility: [facility] Address: [address] [place] [address] Performed By: #### 2 284-8, 2276-4, 71139-0, 2131-9 ####[facility] LABIA [id number] [place] [id number] [place] Laboratory - Chemistry and C hemistry - challengeon 06-13-2024 IgA [Mass/Vol] 170 mg/dL 70 - 400 mg/dL [facility] IgG [Mass/Vol] 663 mg/dL Low 700 - 1600 mg/dL [facility] IgM [Mass/Vol] 376 mg/dL High 40 - 230 mg/dL [facility] No Panel Informationon 06-13 Interpretation and review of laboratory results Normal [facility] Interpretation and review of laboratory results Abnormal [facility] VITAMIN B12on 06-13-2024 Cobalamin (Vitamin B12) [Mass/Vol] 516 pg/mL 232 - 1245 pg/mL [facility] Vit B12 SerPl-mCncon 025 Cobalamin (Vitamin B12) [Mass/Vol] 516 pg/mL Normal 232-1245 [facility] Comment on above: Order Comment: Speci men Type: BLOOD SPECIMENOrdering Facility: [facility] Address: [address] [place] [address] Performed By: #### 2 284-8, 2276-4, 92906-8, 2132-9 ####[facility] LABCLIA [id number] [facility] [id number], [place] [address] [place] CNPNon 06-12-[address] [facility] IGP,APTIMA HPV,AGE GDLNon AGE GDLN ACOG TESTING Note . [facility] Comment on above: TESTS RESULT FLAG UN ITS REF RANGE LAB Clinician Provided Cytology Information Source.............Cervix;Endocervix No. of containers..01 ThinPrep Vial Age Algo ACOG Vicky... 30-65 01 FLAG LEGEND: L-Low Normal,H-High Normal,LL-Alert Low,HH-Alert High <-Panic Low,>-Panic High,A-Abnormal,AA-Critical Abnormal Performed at: 01 =G [facility] [place] [address] Aparna Solorzano MD, HPV APTIMA Negative Negative [facility] Comment on above: This nucleic acid am plification test detects fourteen high- risk HPV types (16,18,31,33,35,39,45,51,52,56,58,59,66,68) without differentiation. Performed at: = - [facility], [place] [id number] Gray Tender: Aparna Solorzano MD, Phone: [phone] Performed at: - [facility], [place] [id number] Gray Tender: Aparna Solorzano MD, Phone: [phone] IGP, APTIMA HPV, RFX 16/18,45 Note . [facility] Comment on above: TESTS RESULT FLAG UN ITS REF RANGE LAB DIAGNOSIS: 02 NEGATIVE FOR INTRAEPITHELIAL LESION OR MALIGNANCY. Specimen adequacy: 02 Satisfactory for evaluation. Endocervical and/or squamous metaplastic cells (endocervical component) are present. Performed by: David Kam, Propulsion Machinery Service Engineer (ASCP) . 02 Note: Note 02 The [...] High,A-Abnormal,AA-Critical Abnormal Performed at: 02 [facility] [address] [place] [address] Aparna Solorzano MD, BRUSH-SPATULA CERVIX [facility] CBC W Auto Differential pane l (Bld)on 05-19-2024 Basophils (Bld) [#/Vol] 0.08 10*3/uL [facility] Basophils/100 WBC (Bld) 0.6 % [facility] Differential cell count method Nom (Bld) Auto [facility] Eosinophils (Bld) [#/Vol] 0.17 10*3/uL [facility] Eosinophils/100 WBC (Bld) 1.2 % [facility] Erythrocyte distribution width (RBC) [Ratio] 14.3 % 11.5 - 15.0 % [facility] Hematocrit (Bld) [Volume fraction] 39.8 % 36.0 - 46.0 % [facility] Hemoglobin (Bld) [Mass/Vol] 13.4 g/dL 11.5 - 15.5 g/dL [facility] Immature granulocytes (Bld) [#/Vol] 0.13 10*3/uL High [facility] Immature granulocytes/100 WBC (Bld) 0.9 % [facility] Interpretation and review of laboratory results Abnormal [facility] Lymphocytes (Bld) [#/Vol] 2.96 10*3/uL [facility] Lymphocytes/100 WBC (Bld) 20.5 % [facility] MCH (RBC) [Entitic mass] 31.1 pg 26.0 - 34.0 pg [facility] MCHC (RBC) [Mass/Vol] 33.7 g/dL 30.5 - 36.0 g/dL [facility] MCV (RBC) [Entitic vol] 92.3 fL 80.0 - 100.0 fL [facility] Monocytes (Bld) [#/Vol] 0.87 10*3/uL High NINF [facility] Monocytes/100 WBC (Bld) 6.0 % [facility] Neutrophils (Bld) [#/Vol] 10.20 10*3/uL High [facility] Neutrophils/100 WBC (Bld) 70.8 % [facility] Nucleated RBC (Bld) [#/Vol] NINF [facility] Nucleated RBC/100 WBC (Bld) [Ratio] 0.0 % /100 WBC [facility] Platelet mean volume (Bld) [Entitic vol] 10.1 fL 9.0 - 12.7 fL [facility] Platelets (Bld) [#/Vol] 303 10*3/uL [facility] RBC (Bld) [#/Vol] 4.31 10*6/uL 3.90 - 5.2 0 m/uL [facility] WBC (Bld) [#/Vol] 14.41 10*3/uL High [facility] Basophils (Bld) [#/Vol] 0.08 10*3/uL Normal <0.11 [facility] Comment on above: Order Comment: Speci men Type: BLOOD SPECIMENOrdering Facility: [facility] Address: [address] [place] [address] Performed By: #### 5 7021-8 ####[facility] LABCLIA [id number] [place] [address] Basophils/100 WBC (Bld) 0.6 % Normal [facility] Comment on above: Order Comment: Speci men Type: BLOOD SPECIMENOrdering Facility: [facility] Address: [address] [place] [address] Performed By: #### 5 7021-8 ####[facility] LABCLIA [id number] [place] [address] Differential cell count method Nom (Bld) Auto Normal [facility] Comment on above: Order Comment: Speci men Type: BLOOD SPECIMENOrdering Facility: [facility] Address: [address] [place] [address] Performed By: #### 5 7021-8 ####[facility] LABCLIA [id number] [place] [address] Eosinophils (Bld) [#/Vol] 0.17 10*3/uL Normal <0.46 [facility] Comment on above: Order Comment: Speci men Type: BLOOD SPECIMENOrdering Facility: [facility] Address: [address] [place] [address] Performed By: #### 5 7021-8 ####[facility] LABCLIA [id number] [place] [address] Eosinophils/100 WBC (Bld) 1.2 % Normal [facility] Comment on above: Order Comment: Speci men Type: BLOOD SPECIMENOrdering Facility: [facility] Address: [address] [place] [address] Performed By: #### 5 7021-8 ####[facility] LABCLIA [id number] [place] [address] Erythrocyte distribution width (RBC) [Ratio] 14.3 % Normal 11.5-15.0 [facility] Comment on above: Order Comment: Speci men Type: BLOOD SPECIMENOrdering Facility: [facility] Address: [address] [place] [address] Performed By: #### 5 7021-8 ####[facility] LABCLIA [id number] [place] [address] Hematocrit (Bld) [Volume fraction] 39.8 % Normal 36.0-46.0 [facility] Comment on above: Order Comment: Speci men Type: BLOOD SPECIMENOrdering Facility: [facility] Address: [address] [place] [address] Performed By: #### 5 7021-8 ####[facility] LABCLIA [id number] [place] [address] Hemoglobin (Bld) [Mass/Vol] 13.4 g/dL Normal 11.5-15.5 [facility] Comment on above: Order Comment: Speci men Type: BLOOD SPECIMENOrdering Facility: [facility] Address: [address] [place] [address] Performed By: #### 5 7021-8 ####[facility] LABCLIA [id number] [place] [address] Immature granulocytes (Bld) [#/Vol] 0.13 10*3/uL High <0.10 [facility] Comment on above: Order Comment: Speci men Type: BLOOD SPECIMENOrdering Facility: [facility] Address: [address] [place] [address] Performed By: #### 5 7021-8 ####[facility] LABCLIA [id number] [place] [address] Immature granulocytes/100 WBC (Bld) 0.9 % Normal [facility] Comment on above: Order Comment: Speci men Type: BLOOD SPECIMENOrdering Facility: [facility] Address: [address] [place] [address] Performed By: #### 5 7021-8 ####[facility] LABCLIA [id number] [place] [address] Lymphocytes (Bld) [#/Vol] 2.96 10*3/uL Normal 1.00-4.00 [facility] Comment on above: Order Comment: Speci men Type: BLOOD SPECIMENOrdering Facility: [facility] Address: [address] [place] [address] Performed By: #### 5 7021-8 ####[facility] LABCLIA [id number] [place] [address] Lymphocytes/100 WBC (Bld) 20.5 % Normal [facility] Comment on above: Order Comment: Speci men Type: BLOOD SPECIMENOrdering Facility: [facility] Address: [address] [place] [address] Performed By: #### 5 7021-8 ####[facility] LABCLIA [id number] [place] [address] MCH (RBC) [Entitic mass] 31.1 pg Normal 26.0-34.0 [facility] Comment on above: Order Comment: Speci men Type: BLOOD SPECIMENOrdering Facility: [facility] Address: [address] [place] [address] Performed By: #### 5 7021-8 ####[facility] LABCLIA [id number] [place] [address] MCHC (RBC) [Mass/Vol] 33.7 g/dL Normal 30.5-36.0 [facility] Comment on above: Order Comment: Speci men Type: BLOOD SPECIMENOrdering Facility: [facility] Address: [address] [place] [address] Performed By: #### 5 7021-8 ####[facility] LABCLIA [id number] [place] [address] MCV (RBC) [Entitic vol] 92.3 fL Normal 80.0-100.0 [facility] Comment on above: Order Comment: Speci men Type: BLOOD SPECIMENOrdering Facility: [facility] Address: [address] [place] [address] Performed By: #### 5 7021-8 ####[facility] LABCLIA [id number] [place] [address] Monocytes (Bld) [#/Vol] 0.87 10*3/uL High <0.87 [facility] Comment on above: Order Comment: Speci men Type: BLOOD SPECIMENOrdering Facility: [facility] Address: [address] [place] [address] Performed By: #### 5 7021-8 ####[facility] LABCLIA [id number] [place] [address] Monocytes/100 WBC (Bld) 6.0 % Normal [facility] Comment on above: Order Comment: Speci men Type: BLOOD SPECIMENOrdering Facility: [facility] Address: [address] [place] [address] Performed By: #### 5 7021-8 ####[facility] LABCLIA [id number] [place] [address] Neutrophils (Bld) [#/Vol] 10.20 10*3/uL High 1.45-7.50 [facility] Comment on above: Order Comment: Speci men Type: BLOOD SPECIMENOrdering Facility: [facility] Address: [address] [place] [address] Performed By: #### 5 7021-8 ####[facility] LABCLIA [id number] [place] [address] Neutrophils/100 WBC (Bld) 70.8 % Normal [facility] Comment on above: Order Comment: Speci men Type: BLOOD SPECIMENOrdering Facility: [facility] Address: [address] [place] [address] Performed By: #### 5 7021-8 ####[facility] LABCLIA [id number] [place] [address] Nucleated RBC (Bld) [#/Vol] 10*3/uL Normal <0.01 [facility] Comment on above: Order Comment: Speci men Type: BLOOD SPECIMENOrdering Facility: [facility] Address: [address] [place] [address] Performed By: #### 5 7021-8 ####[facility] LABCLIA [id number] [place] [address] Nucleated RBC/100 WBC (Bld) [Ratio] 0.0 /[address] [facility] Comment on above: Order Comment: Speci men Type: BLOOD SPECIMENOrdering Facility: [facility] Address: [address] [place] [address] Performed By: #### 5 7021-8 ####[facility] LABIA [id number] [place] [address] Platelet mean volume (Bld) [Entitic vol] 10.1 fL Normal 9.0-12.7 [facility] Comment on above: Order Comment: Speci men Type: BLOOD SPECIMENOrdering Facility: [facility] Address: [address] [place] [address] Performed By: #### 5 7021-8 ####[facility] LABCLIA [id number] [place] [address] Platelets (Bld) [#/Vol] 303 10*3/uL Normal 150-400 [facility] Comment on above: Order Comment: Speci men Type: BLOOD SPECIMENOrdering Facility: [facility] Address: [address] [place] [address] Performed By: #### 5 7021-8 ####[facility] LABCLIA [id number] [place] [address] RBC (Bld) [#/Vol] 4.31 10*6/uL Normal 3.90-5.20 [facility] Comment on above: Order Comment: Speci men Type: BLOOD SPECIMENOrdering Facility: [facility] Address: [address] [place] [address] Performed By: #### 5 7021-8 ####[facility] LABIA [id number] [place] [address] WBC (Bld) [#/Vol] 14.41 10*3/uL High 3.70-11.00 [facility] Comment on above: Order Comment: Speci men Type: BLOOD SPECIMENOrdering Facility: [facility] Address: [address] [place] [address] Performed By: #### 5 7021-8 ####[facility] LABCLIA [id number] [place] [address] Comprehensive metabolic 2000 panelon 05-19-2024 Albumin [Mass/Vol] 4.0 g/dL 3.9 - 4.9 g/dL [facility] ALP [Catalytic activity/Vol] 79 U/L 34 - 123 U/L [facility] ALT [Catalytic activity/Vol] 25 U/L 7 - 38 U/L [facility] Anion gap [Moles/Vol] 14 mmol/L 8 - 15 mmol/L [facility] AST [Catalytic activity/Vol] 12 U/L Low 13 - 35 U/L [facility] Bilirubin [Mass/Vol] mg/dL Low 0.2 - 1 .3 mg/dL [facility] Calcium [Mass/Vol] 9.4 mg/dL 8.5 - 10. 2 mg/dL [facility] Chloride [Moles/Vol] 105 mmol/L 98 - 10 7 mmol/L [facility] CO2 [Moles/Vol] 21 mmol/L Low 22 - 30 mmol/L [facility] Creatinine [Mass/Vol] 0.49 mg/dL Low 0.58 - 0.96 mg/dL [facility] GFR/1.73 sq M.predicted among non-blacks MDRD (S/P/Bld) [Vol rate/Area] 120 mL/min/{1.73_m2} - PINF [facility] Comment on above: Estimated Glomerular Filtration Rate [...] 155 mg/dL High 74 - 99 mg/dL [facility] Comment on above: The [place] Di[employer] Association (ADA) provides guidance for [...] Standards of Medical Care in Diabetes 2016, [place] [employer]. Diabetes Care. 2016.39(Suppl 1). Interpretation and review of laboratory results Abnormal [facility] Potassium [Moles/Vol] 3.8 mmol/L 3.7 - 5.1 mmol/L [facility] Protein [Mass/Vol] 6.6 g/dL 6.3 - 8.0 g/dL [facility] Sodium [Moles/Vol] 140 mmol/L 136 - 144 mmol/L [facility] Urea nitrogen [Mass/Vol] 12 mg/dL 7 - 21 mg/dL [facility] Albumin [Mass/Vol] 4.0 g/dL Normal 3.9-4.[address] [facility] Comment on above: Order Comment: Speci men Type: BLOOD SPECIMENOrdering Facility: [facility] Address: [address] [place] [address] Performed By: #### 2 4323-8 ####[facility] LABIA [id number] [place] [address] [place] ALP [Catalytic activity/Vol] 79 U/L Normal 34-123 [facility] Comment on above: Order Comment: Speci men Type: BLOOD SPECIMENOrdering Facility: [facility] Address: [address] [place] [address] Performed By: #### 2 4323-8 ####[facility] LABCLIA [id number] [place] [address] [place] ALT [Catalytic activity/Vol] 25 U/L Normal 7-38 [facility] Comment on above: Order Comment: Speci men Type: BLOOD SPECIMENOrdering Facility: [facility] Address: [address] [place] [address] Performed By: #### 2 4323-8 ####[facility] LABIA [id number] [place] [address] [place] Anion gap [Moles/Vol] 14 mmol/L Normal 8-15 [facility] Comment on above: Order Comment: Speci men Type: BLOOD SPECIMENOrdering Facility: [facility] Address: [address] [place] [address] Performed By: #### 2 4323-8 ####[facility] LABCLIA [id number] [place] [address] [place] AST [Catalytic activity/Vol] 12 U/L Low 13-35 [facility] Comment on above: Order Comment: Speci men Type: BLOOD SPECIMENOrdering Facility: [facility] Address: [address] [place] [id number] Performed By: #### 2 4323-8 ####[facility] LABCLIA [id number] [place] [id number] [place] Bilirubin [Mass/Vol] mg/dL Low 0.2-1.3 [facility] Comment on above: Order Comment: Speci men Type: BLOOD SPECIMENOrdering Facility: [facility] Address: [address] [place] [address] Performed By: #### 2 4323-8 ####[facility] LABCLIA [id number] [place] [address] [place] Calcium [Mass/Vol] 9.4 mg/dL Normal 8.5-10.[address] [facility] Comment on above: Order Comment: Speci men Type: BLOOD SPECIMENOrdering Facility: [facility] Address: [address] [place], [place] [address] Performed By: #### 2 4323-8 ####[facility] LABCLIA [id number] [place] [address] [place] Chloride [Moles/Vol] 105 mmol/L Normal 98-107 [facility] Comment on above: Order Comment: Speci men Type: BLOOD SPECIMENOrdering Facility: [facility] Address: [address] [place] [address] Performed By: #### 2 4323-8 ####[facility] LABCLIA [id number] [place] [address] [place] CO2 [Moles/Vol] 21 mmol/L Low 22-30 [facility] Comment on above: Order Comment: Speci men Type: BLOOD SPECIMENOrdering Facility: [facility] Address: [address] [place], [place] [address] Performed By: #### 2 4323-8 ####[facility] LABCLIA [id number] [place] [address] [place] Creatinine [Mass/Vol] 0.49 mg/dL Low 0.58-0.96 [facility] Comment on above: Order Comment: Semaj cortés Type: BLOOD SPECIMENOrdering Facility: [facility] Address: [address] [place] [address] Performed By: #### 2 4323-8 ####[facility] LABIA [id number] [place] [address] [place] Creatinine and Glomerular filtration rate.predicted panel (S/P/Bld) 120 mL/min/1.73m??? Normal >=60 [facility] Comment on above: Order Comment: Semaj cortés Type: BLOOD SPECIMENOrdering Facility: [facility] Address: [address] [place] [address] Result Comment: Erin mated Glomerular Filtration Rate [...] 2 4323-8 ####[facility] LABIA [id number] [place] [address] [place] Glucose [Mass/Vol] 155 mg/dL High 74-[address] [facility] Comment on above: Order Comment: Semaj cortés Type: BLOOD SPECIMENOrdering Facility: [facility] Address: [address] [place] [address] Result Comment: The [place] Diabetes Association (ADA) provides guidance for cutoff [...] Standards of Medical Care in Diabetes 2016, [place] [employer]. Diabetes Care. 2016.39(Suppl 1). Performed By: #### 2 4323-8 ####[facility] LABCLIA [id number] [place] [address] [place] Potassium [Moles/Vol] 3.8 mmol/L Normal 3.7-5.1 [facility] Comment on above: Order Comment: Speci men Type: BLOOD SPECIMENOrdering Facility: [facility] Address: [address] [place] [address] Performed By: #### 2 4323-8 ####[facility] LABCLIA [id number] [place] [address] [place] Protein [Mass/Vol] 6.6 g/dL Normal 6.3-8.[address] [facility] Comment on above: Order Comment: Speci men Type: BLOOD SPECIMENOrdering Facility: [facility] Address: [address] [place] [address] Performed By: #### 2 4323-8 ####[facility] LABCLIA [id number] [place] [address] [place] Sodium [Moles/Vol] 140 mmol/L Normal 136-[address] [facility] Comment on above: Order Comment: Speci men Type: BLOOD SPECIMENOrdering Facility: [facility] Address: [address] [place] [address] Performed By: #### 2 4323-8 ####[facility] LABCLIA [id number] [place] [address] [place] Urea nitrogen [Mass/Vol] 12 mg/dL Normal 7-21 [facility] Comment on above: Order Comment: Speci men Type: BLOOD SPECIMENOrdering Facility: [facility] Address: [address] [place] [address] Performed By: #### 2 4323-8 ####[facility] LABCLIA [id number] [place] [address] [place] ESR Westergren method (Bld) [Velocity]on 05-19-2024 ESR (Bld) [Velocity] 21 mm/h High [facility] Interpretation and review of laboratory results Abnormal [facility] ESR (Bld) [Velocity] 21 mm/h High 0-20 [facility] Comment on above: Order Comment: Speci men Type: BLOOD SPECIMENOrdering Facility: [facility] Address: [address] [place] [address] Performed By: #### 4 537-7 ####[facility] LABIA [id number] [place] [address] [place] FERRITIN BLDon 05-19-2024 Ferritin [Mass/Vol] 20.6 ng/mL 14.7 - 2 05.1 ng/mL [facility] FOLATE SERUMon 05-19-2024 Folate [Mass/Vol] 11.1 ng/mL 4.7 - PINF ng/mL [facility] Ferritin SerPl-mCncon 2023 Ferritin [Mass/Vol] 20.6 ng/mL Normal 14.7-205.1 [facility] Comment on above: Order Comment: Speci men Type: BLOOD SPECIMENOrdering Facility: [facility] Address: [address] [place] [address] Performed By: #### 2 276-4, 14779-1, 2284-8, 2132-9 ####[facility] LABCLIA [id number] [place] [address] [place] Folate SerPl-mCncon 05-19-20 24 Folate [Mass/Vol] 11.1 ng/mL Normal >4.7 [facility] Comment on above: Order Comment: Speci men Type: BLOOD SPECIMENOrdering Facility: [facility] Address: [address] [place] [address] Performed By: #### 2 276-4, 67100-5, 2283-8, 2132-01 ####[facility] LABIA [id number] [place] [address] [place] Iron and Iron binding capaci ty panelon 05-19-2024 Interpretation and review of laboratory results Abnormal [facility] Iron [Mass/Vol] 47 ug/dL 41 - 186 ug/dL [facility] Iron binding capacity [Mass/Vol] 420 ug/dL High 232 - 386 ug/dL [facility] Iron/TIBC [Molar ratio] 11.2 % Low 15.0 - 57.0 % [facility] Iron [Mass/Vol] 47 ug/dL Normal 41-186 [facility] Comment on above: Order Comment: Speci men Type: BLOOD SPECIMENOrdering Facility: [facility] Address: [address] [place] [address] Performed By: #### 2 276-4, 21371-8, 2283-12, 2132-01 ####[facility] LABIA [id number] [place] [address] [place] Iron binding capacity [Mass/Vol] 420 ug/dL High 232-386 [facility] Comment on above: Order Comment: Speci men Type: BLOOD SPECIMENOrdering Facility: [facility] Address: [address] [place] [address] Performed By: #### 2 276-4, 04055-4, 2283-12, 2132-01 ####[facility] LABCLIA [id number] [place] [id number] [place] Iron/TIBC [Molar ratio] 11.2 % Low 15.0-57.0 [facility] Comment on above: Order Comment: Speci men Type: BLOOD SPECIMENOrdering Facility: [facility] Address: [address] [place] [address] Performed By: #### 2 276-4, 80703-6, 8, 2132-01 ####[facility] LABCLIA [id number] [place] [id number] [place] No Panel Informationon 05-19 Interpretation and review of laboratory results Normal [facility] VITAMIN B12 BLOODon 05-19-20 24 Cobalamin (Vitamin B12) [Mass/Vol] 632 pg/mL 232 - 1245 pg/mL [facility] Vit B12 SerPl-mCncon 024 Cobalamin (Vitamin B12) [Mass/Vol] 632 pg/mL Normal 232-1245 [facility] Comment on above: Order Comment: Speci men Type: BLOOD SPECIMENOrdering Facility: [facility] Address: [address] [place] [address] Performed By: #### 2 276-4, 58166-3, 2284-8, 2132-9 ####[facility] LABCLIA [id number] [place] [address] [place] CNNURSEon 04-26-[address] [facility] CNPNon 04-10-[address] [facility] ALL CBC WITH AUTO DIFFon BASOPHILS ABSOLUTE AUTO 0.1 [facility] Basophils/100 WBC (Bld) 0.4 % 0.2 - 2.0 % [facility] Eosinophils/100 WBC (Bld) 0.4 % Low 0.9 - 7.0 % [facility] Erythrocyte distribution width (RBC) [Ratio] 15.1 % High 11.0 - 15.0 % [facility] Hematocrit (Bld) [Volume fraction] 39.7 % 36.0 - 48.0 % [facility] Hemoglobin (Bld) [Mass/Vol] 13 g/dL 12.0 - 16.0 g/dL [facility] IMMATURE GRANULOCYTES ABS AUTO 0.1 High [facility] Immature granulocytes/100 WBC (Bld) 0.9 % High 0.0 - 0.5 % [facility] Interpretation and review of laboratory results Abnormal [facility] LYMPHOCYTES ABSOLUTE AUTO 2.1 [facility] Lymphocytes/100 WBC (Bld) 18.4 % Low 20.5 - 60.0 % [facility] MCH (RBC) [Entitic mass] 30.9 pg 26.7 - 34.0 pg [facility] MCHC (RBC) [Mass/Vol] 32.7 g/dL 29.9 - 35.2 g/dL [facility] MCV (RBC) [Entitic vol] 94.3 fL 81.0 - 99.0 fL [facility] MONOCYTES ABSOLUTE AUTO 0.8 [facility] Monocytes/100 WBC (Bld) 6.7 % 1.7 - 12.0 % [facility] NEUTROPHILS ABSOLUTE AUTO 8.3 High [facility] Neutrophils/100 WBC (Bld) 73.2 % 43.0 - 75.0 % [facility] Platelet mean volume (Bld) [Entitic vol] 10.1 fL 9.5 - 13.5 fL [facility] TBH EO # 0.1 [facility] TB PLT 326 [facility] RBC 4.21 [facility] WBC 11.4 High [facility] ALL THYROID STIM HORMONEon 1 06-06-2023 Interpretation and review of laboratory results Abnormal [facility] TSH Qn 0.333 m[IU]/L Low [facility] ALL THYROXINE (T4) FREEon Free T4 [Mass/Vol] 1.01 ng/dL 0.76 - 1. 46 ng/dL [facility] APTTon 04-06-2024 aPTT Coag (Bld) [Time] 25.6 s [facility] MLR HEMOGLOBIN A1Con 024 Glucose [Mass/Vol] 134 mg/dL [facility] HbA1c (Bld) [Mass fraction] 6.3 % High 4.5 - 6.2 % [facility] Comment on above: ADA RECOMMENDED LIMI T 4.0 - 6.0 ADA THERAPEUTIC TARGET < 7.0 ACTION SUGGESTED > 7.0 Interpretation and review of laboratory results Abnormal [facility] No Panel Informationon 04-06 CLINAscension [facility] SRMCOH PROTHROMBIN TIME INR W/O COUMon 04-06-2024 PT Coag (PPP) [Time] 9.6 s [facility] INR <0.93 [facility] Comment on above: DESIRED INR: 2.0-3.0 CONDITIONS NOT LISTED BELOW 2.5-3.5 FOR PROSTHETIC HEART VALVE REPLACEMENT 2.5-3.5 RECURRENT THROMBOSIS TBH PREG QUANT HCGon 024 HCG QUANTITATIVE <1 mIU/mL [facility] Comment on above: 5-50 0.2-1 WEEK 50-500 1-2 WEEKS 100-5,000 2-3 WEEKS 500-10,000 3-4 WEEKS 1,000-50,000 4-5 WEEKS 10,000-100,000 5-6 WEEKS 15,000-200,000 6-8 WEEKS 10,000-100,000 2-3 MONTHS CNPNon 04-02-[address] [facility] 25(OH)D3 SerPl-mCncon 2023 25-hydroxyvitamin D3 [Mass/Vol] 19.9 ng/mL Low 31.0-80.0 [facility] Comment on above: Order Comment: Speci men Type: BLOOD SPECIMENOrdering Facility: [facility] Address: [address] [place] [address] Result Comment: Clas sification of 25 [place] Vitamin D status:Deficiency/Insufficiency: < or = 30 ng/ml.Sufficiency/Optimal Levels: 31-80 ng/mLToxicity: > 100 ng/mL.Test performed by chemiluminescent immunoassay. Performed By: #### 1 989-3 ####[facility] [id number] [place] [address] [place] BLOOD TB SCREENon 03-23-2024 M. tuberculosis tuberculin stim IFN-g Ql (Bld) Negative Normal [facility] Comment on above: Order Comment: Speci men Type: BLOOD SPECIMENOrdering Facility: [facility] Address: [address] [place] [address] Performed By: #### I NFTBP ####[facility] [id number] [place] [address] [place] MITOGEN MINUS NIL >10.00 Normal >=0.50 [facility] Comment on above: Order Comment: Speci men Type: BLOOD SPECIMENOrdering Facility: [facility] Address: [address] [place] [address] Performed By: #### I NFTBP ####[facility] LABCLIA [id number] [place] [address] [place] TB GAMMA INTERPRETATION Normal [facility] Comment on above: Order Comment: Speci men Type: BLOOD SPECIMENOrdering Facility: [facility] Address: [address] [place] [address] Performed By: #### I NFTBP ####[facility] LABCLIA [id number] [place] [address] [place] TB NIL <0.00 Normal <=8.00 [facility] Comment on above: Order Comment: Speci men Type: BLOOD SPECIMENOrdering Facility: [facility] Address: [address] [place] [address] Performed By: #### I NFTBP ####[facility] LABCLIA [id number] [place] [address] [place] TB1 AG MINUS NIL 0.00 IU/mL Normal <0.35 [facility] Comment on above: Order Comment: Speci men Type: BLOOD SPECIMENOrdering Facility: [facility] Address: [address] [place] [address] Performed By: #### I NFTBP ####[facility] LABCLIA [id number] [place] [address] [place] TB2 AG MINUS NIL 0.00 IU/mL Normal <0.35 [facility] Comment on above: Order Comment: Speci men Type: BLOOD SPECIMENOrdering Facility: [facility] Address: [address] [place] [address] Performed By: #### I NFTBP ####[facility] LABCLIA [id number] [place] [address] [place] Bacteria Bld Culton -31-20 24 Bacteria identified Cx Nom (Bld) CULTURE, BLOOD: No growth [address] [facility] Comment on above: Performed By: #### 6 00-7 ####[facility] LABCLIA [id number] [facility] [place] [id number] [place] CBC W Auto Differential pane l (Bld)on 03-23-2024 Basophils (Bld) [#/Vol] 0.06 10*3/uL Normal <0.11 [facility] Comment on above: Order Comment: Speci men Type: BLOOD SPECIMENOrdering Facility: [facility] Address: [address] [place] [address] Performed By: #### 5 7021-8 ####[facility] LABCLIA [id number] [place] [address] Basophils/100 WBC (Bld) 0.5 % Normal [facility] Comment on above: Order Comment: Speci men Type: BLOOD SPECIMENOrdering Facility: [facility] Address: [address] [place] [address] Performed By: #### 5 7021-8 ####[facility] LABCLIA [id number] [place] [address] Differential cell count method Nom (Bld) Auto Normal [facility] Comment on above: Order Comment: Speci men Type: BLOOD SPECIMENOrdering Facility: [facility] Address: [address] [place] [address] Performed By: #### 5 7021-8 ####[facility] LABCLIA [id number] [place] [address] Eosinophils (Bld) [#/Vol] 0.13 10*3/uL Normal <0.46 [facility] Comment on above: Order Comment: Speci men Type: BLOOD SPECIMENOrdering Facility: [facility] Address: [address] [place] [address] Performed By: #### 5 7021-8 ####[facility] LABCLIA [id number] [place] [address] Eosinophils/100 WBC (Bld) 1.0 % Normal [facility] Comment on above: Order Comment: Speci men Type: BLOOD SPECIMENOrdering Facility: [facility] Address: [address] [place] [address] Performed By: #### 5 7021-8 ####[facility] LABCLIA [id number] [place] [address] Erythrocyte distribution width (RBC) [Ratio] 15.2 % High 11.5-15.0 [facility] Comment on above: Order Comment: Speci men Type: BLOOD SPECIMENOrdering Facility: [facility] Address: [address] [place] [address] Performed By: #### 5 7021-8 ####[facility] LABCLIA [id number] [place] [address] Hematocrit (Bld) [Volume fraction] 39.3 % Normal 36.0-46.0 [facility] Comment on above: Order Comment: Speci men Type: BLOOD SPECIMENOrdering Facility: [facility] Address: [address] [place] [address] Performed By: #### 5 7021-8 ####[facility] LABCLIA [id number] [place] [address] Hemoglobin (Bld) [Mass/Vol] 13.1 g/dL Normal 11.5-15.5 [facility] Comment on above: Order Comment: Speci men Type: BLOOD SPECIMENOrdering Facility: [facility] Address: [address] [place] [address] Performed By: #### 5 7021-8 ####[facility] LABCLIA [id number] [place] [address] Immature granulocytes (Bld) [#/Vol] 0.12 10*3/uL High <0.10 [facility] Comment on above: Order Comment: Speci men Type: BLOOD SPECIMENOrdering Facility: [facility] Address: [address] [place] [address] Performed By: #### 5 7021-8 ####[facility] LABCLIA [id number] [place] [address] Immature granulocytes/100 WBC (Bld) 0.9 % Normal [facility] Comment on above: Order Comment: Speci men Type: BLOOD SPECIMENOrdering Facility: [facility] Address: [address] [place] [address] Performed By: #### 5 7021-8 ####[facility] LABCLIA [id number] [place] [address] Lymphocytes (Bld) [#/Vol] 2.03 10*3/uL Normal 1.00-4.00 [facility] Comment on above: Order Comment: Speci men Type: BLOOD SPECIMENOrdering Facility: [facility] Address: [address] [place] [address] Performed By: #### 5 7021-8 ####[facility] LABCLIA [id number] [place] [address] Lymphocytes/100 WBC (Bld) 15.7 % Normal [facility] Comment on above: Order Comment: Speci men Type: BLOOD SPECIMENOrdering Facility: [facility] Address: [address] [place] [address] Performed By: #### 5 7021-8 ####[facility] LABCLIA [id number] [place] [address] MCH (RBC) [Entitic mass] 31.3 pg Normal 26.0-34.0 [facility] Comment on above: Order Comment: Speci men Type: BLOOD SPECIMENOrdering Facility: [facility] Address: [address] [place] [address] Performed By: #### 5 7021-8 ####[facility] LABIA [id number] [place] [address] MCHC (RBC) [Mass/Vol] 33.3 g/dL Normal 30.5-36.0 [facility] Comment on above: Order Comment: Speci men Type: BLOOD SPECIMENOrdering Facility: [facility] Address: [address] [place] [address] Performed By: #### 5 7021-8 ####[facility] LABCLIA [id number] [place] [address] MCV (RBC) [Entitic vol] 93.8 fL Normal 80.0-100.0 [facility] Comment on above: Order Comment: Speci men Type: BLOOD SPECIMENOrdering Facility: [facility] Address: [address] [place] [address] Performed By: #### 5 7021-8 ####[facility] LABCLIA [id number] [place] [address] Monocytes (Bld) [#/Vol] 0.65 10*3/uL Normal <0.87 [facility] Comment on above: Order Comment: Speci men Type: BLOOD SPECIMENOrdering Facility: [facility] Address: [address] [place] [address] Performed By: #### 5 7021-8 ####[facility] LABCLIA [id number] [place] [address] Monocytes/100 WBC (Bld) 5.0 % Normal [facility] Comment on above: Order Comment: Speci men Type: BLOOD SPECIMENOrdering Facility: [facility] Address: [address] [place] [address] Performed By: #### 5 7021-8 ####[facility] LABCLIA [id number] [place] [address] Neutrophils (Bld) [#/Vol] 9.90 10*3/uL High 1.45-7.50 [facility] Comment on above: Order Comment: Speci men Type: BLOOD SPECIMENOrdering Facility: [facility] Address: [address] [place] [address] Performed By: #### 5 7021-8 ####[facility] LABCLIA [id number] [place] [address] Neutrophils/100 WBC (Bld) 76.9 % Normal [facility] Comment on above: Order Comment: Speci men Type: BLOOD SPECIMENOrdering Facility: [facility] Address: [address] [place] [address] Performed By: #### 5 7021-8 ####[facility] LABCLIA [id number] [place] [address] Nucleated RBC (Bld) [#/Vol] 10*3/uL Normal <0.01 [facility] Comment on above: Order Comment: Speci men Type: BLOOD SPECIMENOrdering Facility: [facility] Address: [address] [place] [address] Performed By: #### 5 7021-8 ####[facility] LABCLIA [id number] [place] [address] Nucleated RBC/100 WBC (Bld) [Ratio] 0.0 /[address] [facility] Comment on above: Order Comment: Speci men Type: BLOOD SPECIMENOrdering Facility: [facility] Address: [address] [place] [address] Performed By: #### 5 7021-8 ####[facility] LABCLIA [id number] [place] [address] Platelet mean volume (Bld) [Entitic vol] 10.0 fL Normal 9.0-12.7 [facility] Comment on above: Order Comment: Speci men Type: BLOOD SPECIMENOrdering Facility: [facility] Address: [address] [place] [address] Performed By: #### 5 7021-8 ####[facility] LABIA [id number] [place] [address] Platelets (Bld) [#/Vol] 262 10*3/uL Normal 150-400 [facility] Comment on above: Order Comment: Speci men Type: BLOOD SPECIMENOrdering Facility: [facility] Address: [address] [place] [address] Performed By: #### 5 7021-8 ####[facility] LABCLIA [id number] [place] [address] RBC (Bld) [#/Vol] 4.19 10*6/uL Normal 3.90-5.20 [facility] Comment on above: Order Comment: Speci men Type: BLOOD SPECIMENOrdering Facility: [facility] Address: [address] [place] [address] Performed By: #### 5 7021-8 ####[facility] LABCLIA [id number] [place] [address] WBC (Bld) [#/Vol] 12.89 10*3/uL High 3.70-11.00 [facility] Comment on above: Order Comment: Speci men Type: BLOOD SPECIMENOrdering Facility: [facility] Address: [address] [place] [address] Performed By: #### 5 7021-8 ####[facility] LABCLIA [id number] [place] [address] CNNURSEon 03-23-[address] [facility] CRP SerPl-mCncon 03-23-2024 CRP [Mass/Vol] 0.3 mg/dL Normal <0.9 [facility] Comment on above: Order Comment: Speci men Type: BLOOD SPECIMENOrdering Facility: [facility] Address: [address] [place] [address] Performed By: #### 5 0190-8, 2276-4, 1987-09 ####[facility] LABCLIA [id number] [address] [address] [place] Comprehensive metabolic 2000 panelon 03-23-2024 Albumin [Mass/Vol] 3.9 g/dL Normal 3.9-4.[address] [facility] Comment on above: Order Comment: Speci men Type: BLOOD SPECIMENOrdering Facility: [facility] Address: [address] [place] [address] Performed By: #### 2 4323-8 ####[facility] LABCLIA [id number] [place] [address] [place] ALP [Catalytic activity/Vol] 70 U/L Normal 34-123 [facility] Comment on above: Order Comment: Speci men Type: BLOOD SPECIMENOrdering Facility: [facility] Address: [address] [place] [address] Performed By: #### 2 4323-8 ####[facility] LABCLIA [id number] [place] [address] [place] ALT [Catalytic activity/Vol] 27 U/L Normal 7-38 [facility] Comment on above: Order Comment: Speci men Type: BLOOD SPECIMENOrdering Facility: [facility] Address: [address] [place] [address] Performed By: #### 2 4323-8 ####[facility] LABCLIA [id number] [place] [address] [place] Anion gap [Moles/Vol] 15 mmol/L Normal 8-15 [facility] Comment on above: Order Comment: Speci men Type: BLOOD SPECIMENOrdering Facility: [facility] Address: [address] [place] [address] Performed By: #### 2 4323-8 ####[facility] LABCLIA [id number] [place] [address] [place] AST [Catalytic activity/Vol] 20 U/L Normal 13-35 [facility] Comment on above: Order Comment: Speci men Type: BLOOD SPECIMENOrdering Facility: [facility] Address: [address] [place], [place] [address] Performed By: #### 2 4323-8 ####[facility] LABCLIA [id number] [place] [address] [place] Bilirubin [Mass/Vol] mg/dL Low 0.2-1.3 [facility] Comment on above: Order Comment: Speci men Type: BLOOD SPECIMENOrdering Facility: [facility] Address: [address] [place], [place] [address] Performed By: #### 2 4323-8 ####[facility] LABCLIA [id number] [address] [address] [place] Calcium [Mass/Vol] 9.2 mg/dL Normal 8.5-10.[address] [facility] Comment on above: Order Comment: Speci men Type: BLOOD SPECIMENOrdering Facility: [facility] Address: [address] [place] [address] Performed By: #### 2 4323-8 ####[facility] LABCLIA [id number] [place] [address] [place] Chloride [Moles/Vol] 104 mmol/L Normal 98-107 [facility] Comment on above: Order Comment: Speci men Type: BLOOD SPECIMENOrdering Facility: [facility] Address: [address] [place] [address] Performed By: #### 2 4323-8 ####[facility] LABCLIA [id number] [place] [address] [place] CO2 [Moles/Vol] 20 mmol/L Low 22-30 [facility] Comment on above: Order Comment: Speci men Type: BLOOD SPECIMENOrdering Facility: [facility] Address: [address] [place], [place] [address] Performed By: #### 2 4323-8 ####[facility] LABCLIA [id number] [place] [id number] [place] Creatinine [Mass/Vol] 0.61 mg/dL Normal 0.58-0.96 [facility] Comment on above: Order Comment: Speci men Type: BLOOD SPECIMENOrdering Facility: [facility] Address: [address] [place], [place] [address] Performed By: #### 2 4323-8 ####[facility] LABCLIA [id number] [place] [address] [place] Creatinine and Glomerular filtration rate.predicted panel (S/P/Bld) 114 mL/min/1.73m??? Normal >=60 [facility] Comment on above: Order Comment: Semaj cortés Type: BLOOD SPECIMENOrdering Facility: [facility] Address: [address] [place] [address] Result Comment: Erin mated Glomerular Filtration Rate [...] 2 4323-8 ####[facility] LABIA [id number] [place] [address] [place] Glucose [Mass/Vol] 152 mg/dL High 74-[address] [facility] Comment on above: Order Comment: Semaj cortés Type: BLOOD SPECIMENOrdering Facility: [facility] Address: [address] [place] [address] Result Comment: The [place] [employer] (ADA) provides guidance for cutoff [...] Standards of Medical Care in Diabetes 2016, [place] [employer]. Diabetes Care. 2016.39(Suppl 1). Performed By: #### 2 4323-8 ####[facility] LABIA [id number] [place] [address] [place] Potassium [Moles/Vol] 4.3 mmol/L Normal 3.7-5.1 [facility] Comment on above: Order Comment: Speci men Type: BLOOD SPECIMENOrdering Facility: [facility] Address: [address] [place] [address] Performed By: #### 2 4323-8 ####[facility] LABCLIA [id number] [place] [address] [place] Protein [Mass/Vol] 6.6 g/dL Normal 6.3-8.[address] [facility] Comment on above: Order Comment: Speci men Type: BLOOD SPECIMENOrdering Facility: [facility] Address: [address] [place] [address] Performed By: #### 2 4323-8 ####[facility] LABCLIA [id number] [place] [address] [place] Sodium [Moles/Vol] 139 mmol/L Normal 136-[address] [facility] Comment on above: Order Comment: Speci men Type: BLOOD SPECIMENOrdering Facility: [facility] Address: [address] [place] [address] Performed By: #### 2 4323-8 ####[facility] LABCLIA [id number] [place] [address] [place] Urea nitrogen [Mass/Vol] 20 mg/dL Normal 7-21 [facility] Comment on above: Order Comment: Speci men Type: BLOOD SPECIMENOrdering Facility: [facility] Address: [address] [place] [address] Performed By: #### 2 4323-8 ####[facility] LABCLIA [id number] [place] [address] [place] ESR Westergren method (Bld) [Velocity]on 03-23-2024 ESR (Bld) [Velocity] 27 mm/h High 0-20 [facility] Comment on above: Order Comment: Speci men Type: BLOOD SPECIMENOrdering Facility: [facility] Address: [address] [place] [address] Performed By: #### 4 537-7 ####[facility] LABCLIA [id number] [place] [address] [place] Ferritin [facility] 2023 Ferritin [Mass/Vol] 33.3 ng/mL Normal 14.7-205.1 [facility] Comment on above: Order Comment: Speci men Type: BLOOD SPECIMENOrdering Facility: [facility] Address: [address] [place] [address] Performed By: #### 5 0190-8, 2276-4, 1987-09 ####[facility] LABIA [id number] [place] [address] [place] Folate SerPl-mCncon 03-23-20 Folate [Mass/Vol] 13.0 ng/mL Normal >4.7 [facility] Comment on above: Order Comment: Speci men Type: BLOOD SPECIMENOrdering Facility: [facility] Address: [address] [place] [address] Performed By: #### 2 284-8, 2132-9 ####[facility] LABIA [id number] [place] [address] [place] HCG ( test) Ql (U)o n 03-23-2024 Interpretation and review of laboratory results Normal [facility] Preg Test, Ur Negative Negative [facility] IMMUNOGLOBULINS,IGG,IGA,IGMo n 03-23-2024 IgA [Mass/Vol] 171 mg/dL Normal 70-400 [facility] Comment on above: Order Comment: Speci men Type: BLOOD SPECIMENOrdering Facility: [facility] Address: [address] [place] [address] Performed By: #### S ERIMM ####[facility] LABCLIA [id number] [place] [address] [place] IgG [Mass/Vol] 476 mg/dL Low 700-1600 [facility] Comment on above: Order Comment: Speci men Type: BLOOD SPECIMENOrdering Facility: [facility] Address: [address] [place] [address] Performed By: #### S ERIMM ####[facility] LABCLIA [id number] [place] [address] [place] IgM [Mass/Vol] 373 mg/dL High 40-230 [facility] Comment on above: Order Comment: Speci men Type: BLOOD SPECIMENOrdering Facility: [facility] Address: [address] [place] [address] Performed By: #### S ERIMM ####[facility] LABCLIA [id number] [place] [address] [place] Iron and Iron binding capaci ty panelon 03-23-2024 Iron [Mass/Vol] 67 ug/dL Normal 41-186 [facility] Comment on above: Order Comment: Speci men Type: BLOOD SPECIMENOrdering Facility: [facility] Address: [address] [place] [address] Performed By: #### 5 0190-8, 2275-08, 1987-09 ####[facility] LABIA [id number] [place] [address] [place] Iron binding capacity [Mass/Vol] 399 ug/dL High 232-386 [facility] Comment on above: Order Comment: Speci men Type: BLOOD SPECIMENOrdering Facility: [facility] Address: [address] [place] [address] Performed By: #### 5 0190-8, 2275-08, 1987-09 ####[facility] LABIA [id number] [place] [address] [place] Iron/TIBC [Molar ratio] 16.8 % Normal 15.0-57.0 [facility] Comment on above: Order Comment: Speci men Type: BLOOD SPECIMENOrdering Facility: [facility] Address: [address] [place], [place] [id number] Performed By: #### 5 0190-8, 2276-4, 1987-09 ####[facility] LABIA [id number] [address] [place] Urinalysis macro (dipstick) panel (U)on 03-23-2024 Bilirubin, UA Negative Negative - 4(70) +++ mg/dL [facility] Blood, UA Positive Negative - 50 Dusty/mcL [facility] Comment on above: large Clarity, UA Cloudy [facility] Color, UA Dark [place] [facility] Glucose, UA Positive Negative - 2000(110) ++++ mg/dL [facility] Comment on above: 100 mg Interpretation and review of laboratory results Abnormal [facility] Ketones, UA Negative Negative - 160(16) ++++ mg/dL [facility] Leukocytes, UA Positive Negative - 500+++ Andi/mcL [facility] Comment on above: small Nitrite, UA Negative Negative - Positive [facility] pH, UA 5.5 5 - 9 [facility] [facility] Protein, UA Positive Negative - 2000(20) ++++ mg/dL [facility] Comment on above: 30 mg Spec Grav, UA 1.03 1 - 1.03 [facility] Urobilinogen, UA 0.2 0.2 - 12 mg/dL [facility] Vit B12 SerPl-ncon 024 Cobalamin (Vitamin B12) [Mass/Vol] 607 pg/mL Normal 232-1245 [facility] Comment on above: Order Comment: Speci men Type: BLOOD SPECIMENOrdering Facility: [facility] Address: [address] [place] [address] Performed By: #### 2 284-8, 2132-9 ####[facility] LABCLIA [id number] [place] [address] [place] Office Visiton 03-08-2024 Follow-up visit [id number] Ariadna Haley 1980 F Date Provider Department Center 03/08/2024 271-CALOS MENDOZA [facility] Family History Problem Relation Age of Onset Heart failure Maternal Grandmother Heart attack Maternal Grandfather Family Status - Relation Status Age at Maternal Grandmother Maternal Grandfather Level of Service:08595 [place] OFFICE/OUTPATIENT NEW MODERATE MDM 45 MINUTES Normal [facility] CNPNon 02-22-[address] [facility] CBC W Auto Differential pane l (Bld)on 02-21-2024 Basophils (Bld) [#/Vol] 0.03 10*3/uL Normal <0.11 [facility] Comment on above: Order Comment: Speci men Type: BLOOD SPECIMENOrdering Facility: [facility] Address: [address] [place] [address] Performed By: #### 5 7021-8 ####[facility] LABCLIA [id number] [place] [address] Basophils/100 WBC (Bld) 0.2 % Normal [facility] Comment on above: Order Comment: Speci men Type: BLOOD SPECIMENOrdering Facility: [facility] Address: [address] [place] [address] Performed By: #### 5 7021-8 ####[facility] LABCLIA [id number] [place] [address] Differential cell count method Nom (Bld) Auto Normal [facility] Comment on above: Order Comment: Speci men Type: BLOOD SPECIMENOrdering Facility: [facility] Address: [address] [place] [address] Performed By: #### 5 7021-8 ####[facility] LABCLIA [id number] [place] [address] Eosinophils (Bld) [#/Vol] 0.03 10*3/uL Normal <0.46 [facility] Comment on above: Order Comment: Speci men Type: BLOOD SPECIMENOrdering Facility: [facility] Address: [address] [place] [address] Performed By: #### 5 7021-8 ####[facility] LABCLIA [id number] [place] [address] Eosinophils/100 WBC (Bld) 0.2 % Normal [facility] Comment on above: Order Comment: Speci men Type: BLOOD SPECIMENOrdering Facility: [facility] Address: [address] [place] [address] Performed By: #### 5 7021-8 ####[facility] LABCLIA [id number] [place] [address] Erythrocyte distribution width (RBC) [Ratio] 15.1 % High 11.5-15.0 [facility] Comment on above: Order Comment: Speci men Type: BLOOD SPECIMENOrdering Facility: [facility] Address: [address] [place] [address] Performed By: #### 5 7021-8 ####[facility] LABCLIA [id number] [place] [address] Hematocrit (Bld) [Volume fraction] 41.2 % Normal 36.0-46.0 [facility] Comment on above: Order Comment: Speci men Type: BLOOD SPECIMENOrdering Facility: [facility] Address: [address] [place] [address] Performed By: #### 5 7021-8 ####[facility] LABCLIA [id number] [place] [address] Hemoglobin (Bld) [Mass/Vol] 13.8 g/dL Normal 11.5-15.5 [facility] Comment on above: Order Comment: Speci men Type: BLOOD SPECIMENOrdering Facility: [facility] Address: [address] [place] [address] Performed By: #### 5 7021-8 ####[facility] LABCLIA [id number] [place] [address] Immature granulocytes (Bld) [#/Vol] 0.15 10*3/uL High <0.10 [facility] Comment on above: Order Comment: Speci men Type: BLOOD SPECIMENOrdering Facility: [facility] Address: [address] [place] [address] Performed By: #### 5 7021-8 ####[facility] LABCLIA [id number] [place] [address] Immature granulocytes/100 WBC (Bld) 0.9 % Normal [facility] Comment on above: Order Comment: Speci men Type: BLOOD SPECIMENOrdering Facility: [facility] Address: [address] [place] [address] Performed By: #### 5 7021-8 ####[facility] LABCLIA [id number] [place] [address] Lymphocytes (Bld) [#/Vol] 1.62 10*3/uL Normal 1.00-4.00 [facility] Comment on above: Order Comment: Speci men Type: BLOOD SPECIMENOrdering Facility: [facility] Address: [address] [place] [address] Performed By: #### 5 7021-8 ####[facility] LABCLIA [id number] [place] [address] Lymphocytes/100 WBC (Bld) 9.8 % Normal [facility] Comment on above: Order Comment: Speci men Type: BLOOD SPECIMENOrdering Facility: [facility] Address: [address] [place] [address] Performed By: #### 5 7021-8 ####[facility] LABCLIA [id number] [place] [address] MCH (RBC) [Entitic mass] 30.5 pg Normal 26.0-34.0 [facility] Comment on above: Order Comment: Speci men Type: BLOOD SPECIMENOrdering Facility: [facility] Address: [address] [place] [address] Performed By: #### 5 7021-8 ####[facility] LABCLIA [id number] [place] [address] MCHC (RBC) [Mass/Vol] 33.5 g/dL Normal 30.5-36.0 [facility] Comment on above: Order Comment: Speci men Type: BLOOD SPECIMENOrdering Facility: [facility] Address: [address] [place] [address] Performed By: #### 5 7021-8 ####[facility] LABCLIA [id number] [place] [address] MCV (RBC) [Entitic vol] 91.2 fL Normal 80.0-100.0 [facility] Comment on above: Order Comment: Speci men Type: BLOOD SPECIMENOrdering Facility: [facility] Address: [address] [place] [address] Performed By: #### 5 7021-8 ####[facility] LABCLIA [id number] [place] [address] Monocytes (Bld) [#/Vol] 0.76 10*3/uL Normal <0.87 [facility] Comment on above: Order Comment: Speci men Type: BLOOD SPECIMENOrdering Facility: [facility] Address: [address] [place] [address] Performed By: #### 5 7021-8 ####[facility] LABCLIA [id number] [place] [address] Monocytes/100 WBC (Bld) 4.6 % Normal [facility] Comment on above: Order Comment: Speci men Type: BLOOD SPECIMENOrdering Facility: [facility] Address: [address] [place] [address] Performed By: #### 5 7021-8 ####[facility] LABCLIA [id number] [place] [address] Neutrophils (Bld) [#/Vol] 13.99 10*3/uL High 1.45-7.50 [facility] Comment on above: Order Comment: Speci men Type: BLOOD SPECIMENOrdering Facility: [facility] Address: [address] [place] [address] Performed By: #### 5 7021-8 ####[facility] LABCLIA [id number] [place] [address] Neutrophils/100 WBC (Bld) 84.3 % Normal [facility] Comment on above: Order Comment: Speci men Type: BLOOD SPECIMENOrdering Facility: [facility] Address: [address] [place] [address] Performed By: #### 5 7021-8 ####[facility] LABCLIA [id number] [place] [address] Nucleated RBC (Bld) [#/Vol] 10*3/uL Normal <0.01 [facility] Comment on above: Order Comment: Speci men Type: BLOOD SPECIMENOrdering Facility: [facility] Address: [address] [place] [address] Performed By: #### 5 7021-8 ####[facility] LABCLIA [id number] [place] [address] Nucleated RBC/100 WBC (Bld) [Ratio] 0.0 /[address] [facility] Comment on above: Order Comment: Speci men Type: BLOOD SPECIMENOrdering Facility: [facility] Address: [address] [place] [address] Performed By: #### 5 7021-8 ####[facility] LABCLIA [id number] [place] [address] Platelet mean volume (Bld) [Entitic vol] 9.9 fL Normal 9.0-12.7 [facility] Comment on above: Order Comment: Speci men Type: BLOOD SPECIMENOrdering Facility: [facility] Address: [address] [place] [address] Performed By: #### 5 7021-8 ####[facility] LABIA [id number] [place] [address] Platelets (Bld) [#/Vol] 332 10*3/uL Normal 150-400 [facility] Comment on above: Order Comment: Speci men Type: BLOOD SPECIMENOrdering Facility: [facility] Address: [address] [place] [address] Performed By: #### 5 7021-8 ####[facility] LABCLIA [id number] [place] [address] RBC (Bld) [#/Vol] 4.52 10*6/uL Normal 3.90-5.20 [facility] Comment on above: Order Comment: Speci men Type: BLOOD SPECIMENOrdering Facility: [facility] Address: [address] [place] [address] Performed By: #### 5 7021-8 ####[facility] LABCLIA [id number] [place] [address] WBC (Bld) [#/Vol] 16.58 10*3/uL High 3.70-11.00 [facility] Comment on above: Order Comment: Speci men Type: BLOOD SPECIMENOrdering Facility: [facility] Address: [address] [place] [address] Performed By: #### 5 7021-8 ####[facility] LABIA [id number] [place] [address] CNNURSEon 02-21-[address] [facility] Comprehensive metabolic 2000 panelon 02-21-2024 Albumin [Mass/Vol] 4.3 g/dL Normal 3.9-4.[address] [facility] Comment on above: Order Comment: Speci men Type: BLOOD SPECIMENOrdering Facility: [facility] Address: [address] [place] [address] Performed By: #### 2 4323-8 ####[facility] LABCLIA [id number] [place] [address] ALP [Catalytic activity/Vol] 72 U/L Normal 34-123 [facility] Comment on above: Order Comment: Speci men Type: BLOOD SPECIMENOrdering Facility: [facility] Address: [address] [place] [address] Performed By: #### 2 4323-8 ####[facility] LABCLIA [id number] [place] [address] ALT [Catalytic activity/Vol] 22 U/L Normal 7-38 [facility] Comment on above: Order Comment: Speci men Type: BLOOD SPECIMENOrdering Facility: [facility] Address: [address] [place], [place] [address] Performed By: #### 2 4323-8 ####[facility] LABCLIA [id number] [place] [address] Anion gap [Moles/Vol] 13 mmol/L Normal 8-15 [facility] Comment on above: Order Comment: Speci men Type: BLOOD SPECIMENOrdering Facility: [facility] Address: [address] [place] [address] Performed By: #### 2 4323-8 ####[facility] LABCLIA [id number] [place] [address] AST [Catalytic activity/Vol] 9 U/L Low 13-35 [facility] Comment on above: Order Comment: Speci men Type: BLOOD SPECIMENOrdering Facility: [facility] Address: [address] [place] [address] Performed By: #### 2 4323-8 ####[facility] LABCLIA [id number] [place] [address] Bilirubin [Mass/Vol] 0.2 mg/dL Normal 0.2-1.3 [facility] Comment on above: Order Comment: Speci men Type: BLOOD SPECIMENOrdering Facility: [facility] Address: [address] [place] [address] Performed By: #### 2 4323-8 ####[facility] LABCLIA [id number] [place] [address] Calcium [Mass/Vol] 9.5 mg/dL Normal 8.5-10.[address] [facility] Comment on above: Order Comment: Speci men Type: BLOOD SPECIMENOrdering Facility: [facility] Address: [address] [place] [address] Performed By: #### 2 4323-8 ####[facility] LABCLIA [id number] [place] [address] Chloride [Moles/Vol] 107 mmol/L Normal 98-107 [facility] Comment on above: Order Comment: Speci men Type: BLOOD SPECIMENOrdering Facility: [facility] Address: [address] [place] [address] Performed By: #### 2 4323-8 ####[facility] LABCLIA [id number] [place] [address] CO2 [Moles/Vol] 20 mmol/L Low 22-30 [facility] Comment on above: Order Comment: Speci men Type: BLOOD SPECIMENOrdering Facility: [facility] Address: [address] [place] [address] Performed By: #### 2 4323-8 ####[facility] LABCLIA [id number] [place] [address] Creatinine [Mass/Vol] 0.65 mg/dL Normal 0.58-0.96 [facility] Comment on above: Order Comment: Speci men Type: BLOOD SPECIMENOrdering Facility: [facility] Address: [address] [place] [address] Performed By: #### 2 4323-8 ####[facility] LABCLIA [id number] [place] [address] Creatinine and Glomerular filtration rate.predicted panel (S/P/Bld) 112 mL/min/1.73m??? Normal >=60 [facility] Comment on above: Order Comment: Speci men Type: BLOOD SPECIMENOrdering Facility: [facility] Address: [address] [place] [address] Result Comment: Erni mated Glomerular Filtration Rate (eGFR) is calculated [...] #### 2 4323-8 ####[facility] LABCLIA [id number] [place] [address] Glucose [Mass/Vol] 215 mg/dL High 74-[address] [facility] Comment on above: Order Comment: Semaj cortés Type: BLOOD SPECIMENOrdering Facility: [facility] Address: [address] [id number] Result Comment: The [place] [employer] (ADA) provides guidance for cutoff [...] Standards of Medical Care in Diabetes 2016, [place] [employer]. Diabetes Care. 2016.39(Suppl 1). Performed By: #### 2 4323-8 ####[facility] LABCLIA [id number] [place] [address] Potassium [Moles/Vol] 4.2 mmol/L Normal 3.7-5.1 [facility] Comment on above: Order Comment: Semaj cortés Type: BLOOD SPECIMENOrdering Facility: [facility] Address: [address] [place] [address] Performed By: #### 2 4323-8 ####[facility] LABCLIA [id number] [place] [address] Protein [Mass/Vol] 7.2 g/dL Normal 6.3-8.[address] [facility] Comment on above: Order Comment: Semaj cortés Type: BLOOD SPECIMENOrdering Facility: [facility] Address: [address] [place] [address] Performed By: #### 2 4323-8 ####[facility] LABCLIA [id number] [place] [address] Sodium [Moles/Vol] 140 mmol/L Normal 136-[address] [facility] Comment on above: Order Comment: Speci men Type: BLOOD SPECIMENOrdering Facility: [facility] Address: [address] [place] [address] Performed By: #### 2 4323-8 ####[facility] LABCLIA [id number] [place] [address] Urea nitrogen [Mass/Vol] 15 mg/dL Normal 7-21 [facility] Comment on above: Order Comment: Speci men Type: BLOOD SPECIMENOrdering Facility: [facility] Address: [address] [place] [address] Performed By: #### 2 4323-8 ####[facility] LABCLIA [id number] [place] [address] ESR Westergren method (Bld) [Velocity]on 02-21-2024 ESR (Bld) [Velocity] 33 mm/h High 0-20 [facility] Comment on above: Order Comment: Speci men Type: BLOOD SPECIMENOrdering Facility: [facility] Address: [address] [place] [address] Performed By: #### 4 537-7 ####[facility] LABCLIA [id number] [place] [id number] [place] Ferritin SerPl-mCncon 2023 Ferritin [Mass/Vol] 36.3 ng/mL Normal 14.7-205.1 [facility] Comment on above: Order Comment: Speci men Type: BLOOD SPECIMENOrdering Facility: [facility] Address: [address] [place] [address] Performed By: #### 5 0190-8, 2276-4, 2132-9, 2284-8 ####[facility] LABCLIA [id number] [address] [address] [place] Folate SerPl-mCncon 02-21-20 Folate [Mass/Vol] 18.8 ng/mL Normal >4.7 [facility] Comment on above: Order Comment: Speci men Type: BLOOD SPECIMENOrdering Facility: [facility] Address: [address] [place] [address] Performed By: #### 5 0190-8, 6-4, 9, 2283-12 ####[facility] LABCLIA [id number] [place] [address] [place] Iron and Iron binding capaci ty panelon 02-21-2024 Iron [Mass/Vol] 74 ug/dL Normal 41-186 [facility] Comment on above: Order Comment: Speci men Type: BLOOD SPECIMENOrdering Facility: [facility] Address: [address] [place] [address] Performed By: #### 5 0190-8, 6-4, 9, 2283-12 ####[facility] LABIA [id number] [place] [address] [place] Iron binding capacity [Mass/Vol] 422 ug/dL High 232-386 [facility] Comment on above: Order Comment: Speci men Type: BLOOD SPECIMENOrdering Facility: [facility] Address: [address] [place] [address] Performed By: #### 5 0190-8, 6-4, 9, 2283-12 ####[facility] LABIA [id number] [place] [id number] [place] Iron/TIBC [Molar ratio] 17.5 % Normal 15.0-57.0 [facility] Comment on above: Order Comment: Speci men Type: BLOOD SPECIMENOrdering Facility: [facility] Address: [address] [place] [address] Performed By: #### 5 0190-8, 6-4, 9, 2283-12 ####[facility] LABCLIA [id number] [place] [address] [place] Vit B12 SerPl-mCncon 024 Cobalamin (Vitamin B12) [Mass/Vol] 560 pg/mL Normal 232-1245 [facility] Comment on above: Order Comment: Speci men Type: BLOOD SPECIMENOrdering Facility: [facility] Address: [address] [place] [address] Performed By: #### 5 0190-8, 2275-4, 2132-01, 2283-12 ####[facility] LABCLIA [id number] [place] [address] [place] CNPNon 02-18-[address] [facility] HCG ( test) IA.chandai d Ql (U)Ordered By: Adolfo Kang on 02-16-2024 HCG ( test) Ql (U) Negative [facility] HCG,Urineon 02-16-2024 Beta HCG ( test) Ql (U) Negative Normal [facility] Comment on above: Result Comment: PERF ORMED BY: [place] [address] PATHOLOGIST SENIOR BIOINFORMATICS SCIENTIST OFE CANNON M.D. Performed By: #### U HCG #### [address] CNPNon 02-15-[address] [facility] ECG 12 Leadon 07-13-2023 ECG revealed normal sinus rhythm [facility] Work Phone: CBC AUTO DIFFon 09-24-2022 BASO # 0.1 103/ul Normal 0.0-0.1 [facility] Comment on above: Performed By: #### U AMIC #### [facility] [address] [address] [address] Manda York Basophils/100 WBC (Bld) 0.6 % Normal 0.2-2.0 [facility] Comment on above: Performed By: #### U AMIC #### [facility] [address] [address] [address] Manda York EO # 0.1 103/ul Normal 0.0-0.7 [facility] Comment on above: Performed By: #### U AMIC #### [facility] [address] [place] [address] Dr. Manda York Eosinophils/100 WBC (Bld) 0.6 % Critically low 0.9-7.0 [facility] Comment on above: Performed By: #### U AMIC #### [facility] [address] [place] [address] Dr. Manda York Erythrocyte distribution width (RBC) [Ratio] 14.6 % Normal 11.0-15.0 [facility] Comment on above: Performed By: #### U AMIC #### [facility] [address] [place] [address] Dr. Manda York Hematocrit (Bld) [Volume fraction] 43.4 % Normal 36.0-48.0 [facility] Comment on above: Performed By: #### U AMIC #### [facility] [address] [place] [address] Dr. Manda York Hemoglobin (Bld) [Mass/Vol] 13.7 g/dL Normal 12.0-16.0 [facility] Comment on above: Performed By: #### U AMIC #### [facility] [address] [place] [address] Dr. Manda York IG # 0.12 10e3/ul Critically high 0.00-0.03 [facility] Comment on above: Performed By: #### U AMIC #### [facility] [address] [place] [address] Dr. Manda York IG % 0.8 % Critically high 0.0-0.5 [facility] Comment on above: Performed By: #### U AMIC #### [facility] [address] [place] [address] Dr. Manda York LYMPH # 2.6 103/ul Normal 1.2-3.8 [facility] Comment on above: Performed By: #### U AMIC #### [facility] [address] [place] [address] Dr. Manda York Lymphocytes/100 WBC (Bld) 18.3 % Critically low 20.5-60.0 [facility] Comment on above: Performed By: #### U AMIC #### [facility] [address] [place] [address] Dr. Manda York MANUAL DIFF REQ NO Normal [facility] Comment on above: Performed By: #### U AMIC #### [facility] [address] [place] [address] Dr. Manda York MCH (RBC) [Entitic mass] 29.0 pg Normal 26.7-34.0 [facility] Comment on above: Performed By: #### U AMIC #### [facility] [address] [place] [address] Dr. Manda York MCHC (RBC) [Mass/Vol] 31.6 g/dL Normal 29.9-35.2 [facility] Comment on above: Performed By: #### U AMIC #### [facility] [address] [place] [address] Dr. Manda York MCV (RBC) [Entitic vol] 91.8 fL Normal 81.0-99.0 [facility] Comment on above: Performed By: #### U AMIC #### [facility] [address] [place] [address] Dr. Manda York MONO # 0.7 103/ul Normal 0.3-0.8 [facility] Comment on above: Performed By: #### U AMIC #### [facility] [address] [place] [address] Dr. Manda York Monocytes/100 WBC (Bld) 5.1 % Normal 1.7-12.0 [facility] Comment on above: Performed By: #### U AMIC #### [facility] [address] [place] [address] Dr. Manda York NEUT # 10.6 103/ul Critically high 1.4-6.5 [facility] Comment on above: Performed By: #### U AMIC #### [facility] [address] [place] [address] [address] Manda York Neutrophils/100 WBC (Bld) 74.6 % Normal 43.0-75.0 [facility] Comment on above: Performed By: #### U AMIC #### [facility] [address] [place] [address] [address] Manda York Platelet mean volume (Bld) [Entitic vol] 9.4 fL Critically low 9.5-13.5 [facility] Comment on above: Performed By: #### U AMIC #### [facility] [address] [place] [address] Dr. Manda York PLT 307 103/ul Normal 150-450 [facility] Comment on above: Performed By: #### U AMIC #### [facility] [address] [place] [address] Dr. Manda York RBC 4.73 106/ul Normal 4.20-5.40 [facility] Comment on above: Performed By: #### U AMIC #### [facility] [address] [place] [address] Dr. Manda York WBC 14.2 103/ul Critically high 4.0-11.0 [facility] Comment on above: Performed By: #### U AMIC #### [facility] [address] [place] [address] Dr. Manda York FREE T4on 09-24-2022 Free T4 [Mass/Vol] 1.31 ng/dL Normal 0.76-1.46 [facility] Comment on above: Performed By: #### F T4 #### [facility] [address] [place] [address] Dr. Manda York GLYCOHEMOGLOBIN A1Con 2022 ADA RECOMMENDATION SEE BELOW Normal [facility] Comment on above: Result Comment: ADA RECOMMENDED LIMIT 4.0 - 6.0 ADA THERAPEUTIC TARGET < 7.0 ACTION SUGGESTED > 7.0 Performed By: #### A 1C #### [facility] [address] [place] [address] Dr. Manda York Glucose [Mass/Vol] 120 mg/dL Normal [facility] Comment on above: Performed By: #### A 1C #### [facility] [address] [place] [address] Dr. Manda York HbA1c (Bld) [Mass fraction] 5.8 % Normal 4.5-6.2 [facility] Comment on above: Performed By: #### A 1C #### [facility] [address] [place] [address] Dr. Manda York PREG QUANT HCGon 09-24-2022 HCG QUANT <1 Normal [facility] Comment on above: Performed By: #### F T4 #### [facility] [address] [place] [address] Dr. Manda York HCG RANGE SEE BELOW Normal [facility] Comment on above: Result Comment: 5-50 0.2-1 WEEK 50-500 1-2 WEEKS 100-5,000 2-3 WEEKS 500-10,000 3-4 WEEKS 1,000-50,000 4-5 WEEKS 10,000-100,000 5-6 WEEKS 15,000-200,000 6-8 WEEKS 10,000-100,000 2-3 MONTHS Performed By: #### F T4 #### [facility] [address] [place] [address] Dr. Manda York PROTIMEon 09-24-2022 INR Coag (PPP) [Relative time] {INR} Normal [facility] Comment on above: Performed By: #### F T4 #### [facility] [address] [place] [address] Dr. Manda York INR GUIDELINES SEE BELOW Normal [facility] Comment on above: Result Comment: SHERRY RED INR: 2.0 - 3.0 CONDITIONS NOT LISTED BELOW 2.5 - 3.5 FOR PROSTHETIC HEART VALVE REPLACEMENT 2.5 - 3.5 RECURRENT THROMBOSIS Performed By: #### F T4 #### [facility] [address] [place] [address] Dr. Manda York PT Coag (PPP) [Time] 9.6 s Normal 9.0-11.6 [facility] Comment on above: Performed By: #### F T4 #### [facility] [address] [address] [address] Manda York PTTon 09-24-2022 aPTT Coag (Bld) [Time] 28.2 s Normal 22.3-36.2 Th e [facility] Comment on above: Performed By: #### F T4 #### [facility] [id number] Manda York TSHon 09-24-2022 TSH 0.300 uIU/mL Critically low 0.358-3.740 [facility] Comment on above: Performed By: #### F T4 #### [facility] [address] [address] [address] Manda York US PELVIS TRANSVAGon 023 [...] SHAIKH Date: 2022-09-24 17:50 Normal [facility] PAP ACOG PANEL 2: 30 to 65on 09-18-2022 . . Normal [facility] Comment on above: Result Comment: Perf ormed at: WB Performed By: #### F T4 #### [facility] [address] [address] [address] Manda York Age Gdln ACOG Testing 30-65 Normal [facility] Comment on above: Performed By: #### F T4 #### [facility] [address] [address] [address] Manda York DIAGNOSIS: Comment Normal [facility] Comment on above: Result Comment: NEGA TIVE FOR INTRAEPITHELIAL LESION OR MALIGNANCY. Performed at: WB Performed By: #### F T4 #### [facility] [address] [address] [address] Manda York HPV Aptima Negative Normal Negative [facility] Comment on above: Result Comment: This nucleic acid amplification test detects fourteen high-risk HPV types (16,18,31,33,35,39,45,51,52,56,58,59,66,68) without differentiation. Performed at: =G Performed By: #### F T4 #### [facility] [address] [address] [address] Manda York HPV Genotype Reflex Comment Normal [facility] Comment on above: Result Comment: Crit eria not met, HPV Genotype not performed. Performed at: WB Performed By: #### F T4 #### [facility] [address] [address] [address] Manda York Methodology: Comment Normal [facility] Comment on above: Result Comment: This liquid based ThinPrep(R) pap test was screened with the use of an image guided system. Performed at: WB Performed By: #### F T4 #### [facility] [address] [address] [address] Manda York Note: Comment Normal [facility] Comment on above: Result Comment: The Pap smear is a screening test designed to aid in the detection of premalignant and malignant conditions of the uterine cervix. It is not a diagnostic procedure and should not be used as the sole means of detecting cervical cancer. Both false-positive and false-negative reports do occur. . Performed at: WB Performed By: #### F T4 #### [facility] [address] [address] [address] Manda York Performed by: Comment Normal [facility] Comment on above: Result Comment: Lorena Peters, [employer]ulsion Machinery Service Engineer (ASCP) Performed at: WB Performed By: #### F T4 #### [facility] [address] [place], [place] [address] Dr. Manda York Specimen adequacy: Comment Normal [facility] Comment on above: Result Comment: Sati sfactory for evaluation. Endocervical and/or squamous metaplastic cells (endocervical component) are present. Performed at: WB Performed By: #### F T4 #### [facility] [address] [place], [place] [address] Dr. Manda York Cytology Cervical or vaginal smear or scraping studyOrdered By: Hazel Torres on 09-10-2022 [facility] ZOGOtennis MG MAMM SCREEN 3D SELENE CADon 09-01-2022 MG MAMM SCREEN 3D SELENE CAD Patient: ARIADNA HALEY Exam Date: 09/01/2022 : 1980 Gender:F Ordering : DR MANUEL FERRIS . Admission #: [id number] Family : Order #: [id number] CLICK HERE TO VIEW EXAM RADIOLOGY REPORT [...] stomach cancer at age 56. LOCATION: [facility] BREAST COMPOSITION: Scattered areas fibroglandular density. [...] M.D. on 09/02/2022 at 12:32 Normal [facility] MRI KNEE RT WO CONon 022 [...] by: MANUEL READER Date: 2022-04-01 08:24 Normal [facility] PNEUMOCOCCAL IGG ABS, 23 SER OTYPESon 03-21-2022 Pneumococcal Interpretation See Note [facility] S. pneumoniae 1 IgG (S) [Mass/Vol] 0.27 ug/mL [facility] S. pneumoniae 12 IgG (S) [Mass/Vol] 0.08 ug/mL [facility] S. pneumoniae 14 IgG (S) [Mass/Vol] 0.19 ug/mL [facility] S. pneumoniae 17 IgG (S) [Mass/Vol] 1.72 ug/mL [facility] S. pneumoniae 19 IgG (S) [Mass/Vol] 1.52 ug/mL [facility] S. pneumoniae 2 IgG (S) [Mass/Vol] 0.44 ug/mL [facility] S. pneumoniae 20 IgG (S) [Mass/Vol] 1.53 ug/mL [facility] S. pneumoniae 22 IgG (S) [Mass/Vol] 0.99 ug/mL [facility] S. pneumoniae 23 IgG (S) [Mass/Vol] 0.14 ug/mL [facility] S. pneumoniae 3 IgG (S) [Mass/Vol] 0.36 ug/mL [facility] S. pneumoniae 34 IgG (S) [Mass/Vol] 5.77 ug/mL [facility] S. pneumoniae 4 IgG (S) [Mass/Vol] 0.06 ug/mL [facility] S. pneumoniae 43 IgG (S) [Mass/Vol] 0.93 ug/mL [facility] S. pneumoniae 5 IgG (S) [Mass/Vol] 0.89 ug/mL [facility] S. pneumoniae 8 IgG (S) [Mass/Vol] 0.58 ug/mL [facility] S. pneumoniae 9 IgG (S) [Mass/Vol] 0.4 ug/mL [facility] S. pneumoniae Lebanese type 15B IgG (S) [Mass/Vol] 8.27 ug/mL [facility] S. pneumoniae Lebanese type 18C IgG (S) [Mass/Vol] 0.39 ug/mL [facility] S. pneumoniae Lebanese type 19A IgG (S) [Mass/Vol] 17.72 ug/mL [facility] S. pneumoniae Lebanese type 33F IgG (S) [Mass/Vol] 3.04 ug/mL [facility] S. pneumoniae Lebanese type 6B IgG (S) [Mass/Vol] 0.82 ug/mL [facility] S. pneumoniae Lebanese type 7F IgG (S) [Mass/Vol] 0.34 ug/mL [facility] S. pneumoniae Lebanese type 9V IgG (S) [Mass/Vol] 0.78 ug/mL [facility] XR KNEE RT 4V or [...] GARRETT Date: 2022-03-21 16:47 Normal [facility] DIPHTHER/TETANUS ABon 2021 C. diphtheriae IgG Qn (S) 0.1 IU/mL [facility] C. tetani toxoid IgG IA Qn 1 IU/mL [facility] IGA BLDon 03-18-2022 IgA [Mass/Vol] 182 mg/dL 70 - 400 mg/dL [facility] IGE Don 03-18-2022 IgE Qn 12.3 kU/l <114.0 kU/l [facility] IGGon 03-18-2022 IgG [Mass/Vol] 618 mg/dL Low 700 - 1,600 mg/dL [facility] IGMon 03-18-2022 IgM [Mass/Vol] 514 mg/dL High 40 - 230 mg/dL [facility] Immunodeficiency panel FC (B ld)on 03-18-2022 CD3 cells (Bld) [#/Vol] 2841 cells/uL High 958 - 2,388 cells/uL [facility] CD3 cells/100 cells (Bld) 81 % 60 - 89 % [facility] CD3+CD4+ (T4 helper) cells (Bld) [#/Vol] 1621 cells/uL 533 - 1,674 cells/uL [facility] CD3+CD4+ (T4 helper) cells/100 cells (Bld) 46 % 34 - 61 % [facility] CD3+CD4+ (T4 helper) cells/CD3+CD8+ (T8 suppressor cells) cells (Bld) [# ratio] 1.55 % 1.10 - 3.25 [facility] CD3+CD8+ (T8 suppressor cells) cells (Bld) [#/Vol] 1049 cells/uL High 175 - 958 cells/uL [facility] CD3+CD8+ (T8 suppressor cells) cells/100 cells (Bld) 30 % 10 - 41 % [facility] CD3-CD16+CD56+ (Natural killer) cells (Bld) [#/Vol] 193 cells/uL 102 - 565 cells/uL [facility] CD3-CD16+CD56+ (Natural killer) cells/100 cells (Bld) 5 % 5 - 25 % [facility] CD3-CD19+ cells (Bld) [#/Vol] 475 cells/uL 75 - 660 cells/uL [facility] CD3-CD19+ cells/100 cells (Bld) 13 % 5 - 22 % [facility] CBC W Auto Differential pane l (Bld)on 03-17-2022 Basophils (Bld) [#/Vol] 0.07 10*3/uL <0.11 k/uL [facility] Basophils/100 WBC (Bld) 0.6 % [facility] Differential cell count method Nom (Bld) Auto [facility] Eosinophils (Bld) [#/Vol] 0.18 10*3/uL <0.46 k/uL [facility] Eosinophils/100 WBC (Bld) 1.6 % [facility] Erythrocyte distribution width (RBC) [Ratio] 14.6 % 11.5 - 15.0 % [facility] Hematocrit (Bld) [Volume fraction] 40.5 % 36.0 - 46.0 % [facility] Hemoglobin (Bld) [Mass/Vol] 13.0 g/dL 11.5 - 15.5 g/dL [facility] Immature granulocytes (Bld) [#/Vol] 0.06 10*3/uL <0.10 k/uL [facility] Immature granulocytes/100 WBC (Bld) 0.5 % [facility] Lymphocytes (Bld) [#/Vol] 2.97 10*3/uL 1.00 - 4.00 k/uL [facility] Lymphocytes/100 WBC (Bld) 26.9 % [facility] MCH (RBC) [Entitic mass] 28.4 pg 26.0 - 34.0 pg [facility] MCHC (RBC) [Mass/Vol] 32.1 g/dL 30.5 - 36.0 g/dL [facility] MCV (RBC) [Entitic vol] 88.4 fL 80.0 - 100.0 fL [facility] Monocytes (Bld) [#/Vol] 0.79 10*3/uL <0.87 k/uL [facility] Monocytes/100 WBC (Bld) 7.2 % [facility] Neutrophils (Bld) [#/Vol] 6.97 10*3/uL 1.45 - 7.50 k/uL [facility] Neutrophils/100 WBC (Bld) 63.2 % [facility] Nucleated RBC (Bld) [#/Vol] <0.01 k/uL [facility] Nucleated RBC/100 WBC (Bld) [Ratio] 0.0 /100 WBC [facility] Platelet mean volume (Bld) [Entitic vol] 9.9 fL 9.0 - 12.7 fL [facility] Platelets (Bld) [#/Vol] 314 10*3/uL 150 - 400 k/uL [facility] RBC (Bld) [#/Vol] 4.58 10*6/uL 3.90 - 5.2 0 m/uL [facility] WBC (Bld) [#/Vol] 11.04 10*3/uL High 3.70 - 11 .00 k/uL [facility] ECHOCARDIO M/2D COMPLETEon 1 ECHOCARDIO M/2D COMPLETE Patient: ARIADNA HALEY Exam Date: 03/12/2022 : 1980 Gender:F Ordering : DR MANUEL FERRIS . Admission #: [id number] Family : Order #: [id number] CLICK HERE TO VIEW EXAM ECHOCARDIOGRAM REPORT [...] M.D. on 03/16/2022 at 16:47 Normal [facility] INSULINon 03-11-2022 Insulin 17.8 uIU/mL Normal 2.6-24.9 [facility] Comment on above: Performed By: #### C BC #### [facility] [address] [place] [address] Dr. Manda York CBC AUTO DIFFon 03-09-2022 BASO # 0.1 103/ul Normal 0.0-0.1 [facility] Comment on above: Performed By: #### C BC #### [facility] [address] [place] [address] Dr. Manda York Basophils/100 WBC (Bld) 0.4 % Normal 0.2-2.0 [facility] Comment on above: Performed By: #### C BC #### [facility] [address] [place] [address] Dr. Manda York EO # 0.2 103/ul Normal 0.0-0.7 [facility] Comment on above: Performed By: #### C BC #### [facility] [address] [place] [address] Dr. Manda York Eosinophils/100 WBC (Bld) 1.2 % Normal 0.9-7.0 [facility] Comment on above: Performed By: #### C BC #### [facility] [address] [place] [address] Dr. Manda York Erythrocyte distribution width (RBC) [Ratio] 14.6 % Normal 11.0-15.0 [facility] Comment on above: Performed By: #### C BC #### [facility] [address] [place] [address] Dr. Manda York Hematocrit (Bld) [Volume fraction] 39.2 % Normal 36.0-48.0 [facility] Comment on above: Performed By: #### C BC #### [facility] [address] [place] [address] Dr. Manda York Hemoglobin (Bld) [Mass/Vol] 12.7 g/dL Normal 12.0-16.0 [facility] Comment on above: Performed By: #### C BC #### [facility] [address] [place] [address] Dr. Manda York IG # 0.06 10e3/ul Critically high 0.00-0.03 [facility] Comment on above: Performed By: #### C BC #### [facility] [address] [place] [address] Dr. Manda York IG % 0.5 % Normal 0.0-0.5 [facility] Comment on above: Performed By: #### C BC #### [facility] [address] [place] [address] Dr. Manda York LYMPH # 3.7 103/ul Normal 1.2-3.8 [facility] Comment on above: Performed By: #### C BC #### [facility] [address] [place] [address] Dr. Manda York Lymphocytes/100 WBC (Bld) 31.0 % Normal 20.5-60.0 [facility] Comment on above: Performed By: #### C BC #### [facility] [address] [place] [address] Dr. Manda York MANUAL DIFF REQ NO Normal [facility] Comment on above: Performed By: #### C BC #### [facility] [address] [place] [address] Dr. Manda York MCH (RBC) [Entitic mass] 28.9 pg Normal 26.7-34.0 [facility] Comment on above: Performed By: #### C BC #### [facility] [address] [address] [address] Manda York MCHC (RBC) [Mass/Vol] 32.4 g/dL Normal 29.9-35.2 [facility] Comment on above: Performed By: #### C BC #### [facility] [address] [place] [address] Dr. Manda York MCV (RBC) [Entitic vol] 89.1 fL Normal 81.0-99.0 [facility] Comment on above: Performed By: #### C BC #### [facility] [address] [place] [address] Dr. Manda York MONO # 0.7 103/ul Normal 0.3-0.8 [facility] Comment on above: Performed By: #### C BC #### [facility] [address] [place] [address] Dr. Manda York Monocytes/100 WBC (Bld) 5.8 % Normal 1.7-12.0 [facility] Comment on above: Performed By: #### C BC #### [facility] [address] [place] [address] Dr. Manda York NEUT # 7.3 103/ul Critically high 1.4-6.5 [facility] Comment on above: Performed By: #### C BC #### [facility] [address] [place] [address] Dr. Manda York Neutrophils/100 WBC (Bld) 61.1 % Normal 43.0-75.0 [facility] Comment on above: Performed By: #### C BC #### [facility] [address] [place] [address] Dr. Manda York Platelet mean volume (Bld) [Entitic vol] 9.7 fL Normal 9.5-13.5 [facility] Comment on above: Performed By: #### C BC #### [facility] [address] [place] [address] Dr. Manda York PLT 297 103/ul Normal 150-450 [facility] Comment on above: Performed By: #### C BC #### [facility] [address] [address] [address] Manda York RBC 4.40 106/ul Normal 4.20-5.40 [facility] Comment on above: Performed By: #### C BC #### [facility] [address] [address] [address] Manda York WBC 12.0 103/ul Critically high 4.0-11.0 [facility] Comment on above: Performed By: #### C BC #### [facility] [address] [address] [address] Manda York FREE THYROXINE INDEX T7on FTI 3.81 Normal 1.30-4.50 [facility] Comment on above: Performed By: #### U AMIC #### [facility] [address] [address] [address] Manda York T3U 34.0 % Normal 30.0-39.0 [facility] Comment on above: Performed By: #### U AMIC #### [facility] [address] [address] [address] Manda York T4 [Mass/Vol] 11.20 ug/dL Normal 4.80-13.90 [facility] Comment on above: Performed By: #### U AMIC #### [facility] [address] [address] [address] Manda York GLYCOHEMOGLOBIN A1Con 2021 ADA RECOMMENDATION SEE BELOW Normal [facility] Comment on above: Result Comment: ADA RECOMMENDED LIMIT 4.0 - 6.0 ADA THERAPEUTIC TARGET < 7.0 ACTION SUGGESTED > 7.0 Performed By: #### LUIGI PATRICK #### [facility] [address] [address] [address] Manda York Glucose [Mass/Vol] 117 mg/dL Normal [facility] Comment on above: Performed By: #### LUIGI PATRICK #### [facility] [address] [address] [address] Manda York HbA1c (Bld) [Mass fraction] 5.7 % Normal 4.5-6.2 [facility] Comment on above: Performed By: #### S LUIGI MELO #### [facility] [address] [address] [address] Manda York IRONon 03-09-2022 Iron [Mass/Vol] 61.0 ug/dL Normal 50.0-170.0 [facility] Comment on above: Performed By: #### C BC #### [facility] [address] [address] [address] Manda York LIPID PROFILEon 03-09-2022 CHOL-HDL RATIO NORM SEE BELOW Normal [facility] Comment on above: Result Comment: 3.3 - 4.4 LOW RISK 4.4 - 7.1 AVERAGE RISK 7.1 - 11.0 MODERATE RISK >11.0 HIGH RISK Performed By: #### U AMIC #### [facility] [address] [address] [address] Manda York Cholesterol [Mass/Vol] 260 mg/dL Critically high <=200 [facility] Comment on above: Performed By: #### U AMIC #### [facility] [address] [address] [address] Manda York Cholesterol in HDL [Mass/Vol] 38 mg/dL Critically low 40-60 [facility] Comment on above: Performed By: #### U AMIC #### [facility] [address] [address] [address] Manda York Cholesterol in LDL [Mass/Vol] 170.8 mg/dL Normal [facility] Comment on above: Performed By: #### U AMIC #### [facility] [address] [address] [address] Manda York Cholesterol.total/Chol esterol in HDL [Mass ratio] 6.8 {ratio} Normal [facility] Comment on above: Performed By: #### U AMIC #### [facility] [address] [address] [address] Manda York HDL NORMAL > or = 60 mg/dl - LO W CARDIOVASCULAR RISK <40 mg/dl - HIGH CARDIOVASCULAR RISK Normal [facility] Comment on above: Performed By: #### U AMIC #### [facility] [address] [address] [address] Manda York LDL CALC NORMAL SEE BELOW Normal [facility] Comment on above: Result Comment: <100 mg/dl OPTIMAL 100 - 129 mg/dl NEAR OR ABOVE OPTIMAL 130 - 159 mg/dl BORDERLINE HIGH 160 - 189 mg/dl HIGH >190 mg/dl VERY HIGH Performed By: #### U AMIC #### [facility] [address] [address] [address] Manda York Triglyceride [Mass/Vol] 256 mg/dL Critically high <=150 [facility] Comment on above: Performed By: #### U AMIC #### [facility] [address] [address] [address] Manda York VLDL CALC 51.2 mg/dL Normal [facility] Comment on above: Performed By: #### U AMIC #### [facility] [address] [address] [address] Manda York PROF 14(COMP METB)on 03-09- 022 Albumin [Mass/Vol] 3.8 g/dL Normal 3.4-5.0 [facility] Comment on above: Performed By: #### U AMIC #### [facility] [address] [address] [address] Manda York Albumin/Globulin [Mass ratio] 1.0 {ratio} Normal [facility] Comment on above: Performed By: #### U AMIC #### [facility] [address] [address] [address] Manda York ALP [Catalytic activity/Vol] 66 U/L Normal 46-116 [facility] Comment on above: Performed By: #### U AMIC #### [facility] [address] [address] [address] Manda York ALT [Catalytic activity/Vol] 27 U/L Normal 14-59 [facility] Comment on above: Performed By: #### U AMIC #### [facility] [address] [address] [address] Manda York Anion gap [Moles/Vol] 11.8 mmol/L Normal [facility] Comment on above: Performed By: #### U AMIC #### [facility] [address] [address] [address] Manda York AST [Catalytic activity/Vol] 9 U/L Critically low 15-37 [facility] Comment on above: Performed By: #### U AMIC #### [facility] [address] [address] [address] Manda York Bilirubin [Mass/Vol] 0.2 mg/dL Normal 0.2-1.0 [facility] Comment on above: Performed By: #### U AMIC #### [facility] [address] [place] [address] Dr. Manda York Calcium [Mass/Vol] 9.1 mg/dL Normal 8.5-10.1 [facility] Comment on above: Performed By: #### U AMIC #### [facility] [address] [place] [address] Dr. Manda York Chloride [Moles/Vol] 101 mmol/L Normal 98-107 [facility] Comment on above: Performed By: #### U AMIC #### [facility] [address] [place] [address] Dr. Manda York CO2 [Moles/Vol] 26.1 mmol/L Normal 21.0-32.0 [facility] Comment on above: Performed By: #### U AMIC #### [facility] [address] [place] [address] Dr. Manda York Creatinine [Mass/Vol] 0.80 mg/dL Normal 0.55-1.02 [facility] Comment on above: Performed By: #### U AMIC #### [facility] [address] [address] [address] Manda York EGFR-AF ALBANIAN >60 Normal >=60 [facility] Comment on above: Performed By: #### U AMIC #### [facility] [address] [place] [address] Dr. Manda York EGFR-NON AF ALBANIAN >60 Normal >=60 [facility] Comment on above: Performed By: #### U AMIC #### [facility] [address] [address] [address] Manda York Globulin (S) [Mass/Vol] 3.8 g/dL Normal [facility] Comment on above: Performed By: #### U AMIC #### [facility] [address] [address] [address] Manda York Glucose [Mass/Vol] 93 mg/dL Normal 74-106 [facility] Comment on above: Performed By: #### U AMIC #### [facility] [address] [address] [address] Manda York Potassium [Moles/Vol] 3.9 mmol/L Normal 3.5-5.1 [facility] Comment on above: Performed By: #### U AMIC #### [facility] [address] [place] [address] Dr. Manda York Protein [Mass/Vol] 7.6 g/dL Normal 6.4-8.2 [facility] Comment on above: Performed By: #### U AMIC #### [facility] [address] [place] [address] Dr. Manda York Sodium [Moles/Vol] 135 mmol/L Critically low 136-145 [facility] Comment on above: Performed By: #### U AMIC #### [facility] [address] [place] [address] Dr. Madna York Urea nitrogen [Mass/Vol] 10.0 mg/dL Normal 7.0-18.0 [facility] Comment on above: Performed By: #### U AMIC #### [facility] [address] [place] [address] Dr. Manda York Urea nitrogen/Creatinine [Mass ratio] 12.5 mg/mg Normal [facility] Comment on above: Performed By: #### U AMIC #### [facility] [address] [place] [address] Dr. Manda York TSHon 03-09-2022 TSH 0.610 uIU/mL Normal 0.358-3.740 [facility] Comment on above: Performed By: #### U [facility] #### [facility] [address] [place] [address] Dr. Manda York B2 MICROGLOBULIN Bon 022 Lnil-1-Crapvwekmhuyj [Mass/Vol] 1.8 ug/mL 0.8 - 2.4 mg/L [facility] FERRITIN BLDon 03-05-2022 Ferritin [Mass/Vol] 33.2 ng/mL 14.7 - 2 05.1 ng/mL [facility] FOLATE SERUMon 03-05-2022 Folate [Mass/Vol] 6.6 ng/mL >4.7 ng/mL [facility] Iron and Iron binding capaci ty panelon 03-05-2022 Iron [Mass/Vol] 49 ug/dL 41 - 186 ug/dL [facility] Iron binding capacity [Mass/Vol] 392 ug/dL High 232 - 386 ug/dL [facility] Iron/TIBC [Molar ratio] 12.5 % Low 15.0 - 57.0 % [facility] CBC W Auto Differential pane l (Bld)on 03-04-2022 Basophils (Bld) [#/Vol] 0.07 10*3/uL <0.11 k/uL [facility] Basophils/100 WBC (Bld) 0.6 % [facility] Differential cell count method Nom (Bld) Auto [facility] Eosinophils (Bld) [#/Vol] 0.19 10*3/uL <0.46 k/uL [facility] Eosinophils/100 WBC (Bld) 1.7 % [facility] Erythrocyte distribution width (RBC) [Ratio] 14.7 % 11.5 - 15.0 % [facility] Hematocrit (Bld) [Volume fraction] 40.0 % 36.0 - 46.0 % [facility] Hemoglobin (Bld) [Mass/Vol] 13.0 g/dL 11.5 - 15.5 g/dL [facility] Immature granulocytes (Bld) [#/Vol] 0.07 10*3/uL <0.10 k/uL [facility] Immature granulocytes/100 WBC (Bld) 0.6 % [facility] Lymphocytes (Bld) [#/Vol] 3.31 10*3/uL 1.00 - 4.00 k/uL [facility] Lymphocytes/100 WBC (Bld) 30.2 % [facility] MCH (RBC) [Entitic mass] 28.9 pg 26.0 - 34.0 pg [facility] MCHC (RBC) [Mass/Vol] 32.5 g/dL 30.5 - 36.0 g/dL [facility] MCV (RBC) [Entitic vol] 88.9 fL 80.0 - 100.0 fL [facility] Monocytes (Bld) [#/Vol] 0.70 10*3/uL <0.87 k/uL [facility] Monocytes/100 WBC (Bld) 6.4 % [facility] Neutrophils (Bld) [#/Vol] 6.63 10*3/uL 1.45 - 7.50 k/uL [facility] Neutrophils/100 WBC (Bld) 60.5 % [facility] Nucleated RBC (Bld) [#/Vol] <0.01 k/uL [facility] Nucleated RBC/100 WBC (Bld) [Ratio] 0.0 /100 WBC [facility] Platelet mean volume (Bld) [Entitic vol] 9.6 fL 9.0 - 12.7 fL [facility] Platelets (Bld) [#/Vol] 355 10*3/uL 150 - 400 k/uL [facility] RBC (Bld) [#/Vol] 4.50 10*6/uL 3.90 - 5.2 0 m/uL [facility] WBC (Bld) [#/Vol] 10.97 10*3/uL 3.70 - 11 .00 k/uL [facility] Calcium.ionized [Moles/Vol]o n 03-04-2022 Calcium.ionized (Bld) [Mass/Vol] 1.26 mmol/L 1.08 - 1.30 mmol/L [facility] Calcium.ionized adjusted to pH 7.4 (Bld) [Moles/Vol] 1.25 mmol/L 1.08 - 1.30 mmol/L [facility] Comprehensive metabolic 2000 panelon 03-04-2022 Albumin [Mass/Vol] 4.3 g/dL 3.9 - 4.9 g/dL [facility] ALP [Catalytic activity/Vol] 70 U/L 34 - 123 U/L [facility] ALT [Catalytic activity/Vol] 26 U/L 7 - 38 U/L [facility] Anion gap [Moles/Vol] 7 mmol/L Low 9 - 18 mmol/L [facility] AST [Catalytic activity/Vol] 12 U/L Low 13 - 35 U/L [facility] Bilirubin [Mass/Vol] 0.2 mg/dL 0.2 - 1 .3 mg/dL [facility] Calcium [Mass/Vol] 9.3 mg/dL 8.5 - 10. 2 mg/dL [facility] Chloride [Moles/Vol] 103 mmol/L 97 - 10 5 mmol/L [facility] CO2 [Moles/Vol] 28 mmol/L 22 - 30 mmol/L [facility] Creatinine [Mass/Vol] 0.69 mg/dL 0.58 - 0.96 mg/dL [facility] Estimated Glomerular Filtration Rate 112 mL/min/1.73m >=60 mL/min/1.73m [facility] Glucose [Mass/Vol] 100 mg/dL High 74 - 99 mg/dL [facility] Potassium [Moles/Vol] 3.9 mmol/L 3.7 - 5.1 mmol/L [facility] Protein [Mass/Vol] 7.0 g/dL 6.3 - 8.0 g/dL [facility] Sodium [Moles/Vol] 138 mmol/L 136 - 144 mmol/L [facility] Urea nitrogen [Mass/Vol] 12 mg/dL 7 - 21 mg/dL [facility] LD LACTATE DEHYDROon 022 LDH [Catalytic activity/Vol] 135 U/L 135 - 214 U/L [facility] PHOSPHORUS INORGANICon 03-04 Phosphate [Mass/Vol] 3.2 mg/dL 2.7 - 4 .8 mg/dL [facility] URIC ACID BLOODon 03-04-2022 Urate [Mass/Vol] 5.2 mg/dL 2.5 - 6.6 mg/dL [facility] IMMUNOGLOBULINS IGA/IGM/IGG/ IGE QUANTITAon 02-20-2022 Immunoglobulin A, Qn, Serum 189 mg/dL Normal 87-352 [facility] Comment on above: Result Comment: Perf ormed at: CB Performed By: #### S [facility] #### [facility] [address] [place] [address] Dr. Manda York Immunoglobulin E, Total 10 IU/mL Normal 6-495 [facility] Comment on above: Result Comment: Perf ormed at: BN Performed By: #### S LUIGI MELO #### [facility] [address] [place] [address] Dr. Manda York Immunoglobulin G, Qn, Serum 598 mg/dL Normal 586-1602 [facility] Comment on above: Result Comment: Perf ormed at: CB Performed By: #### S LEANN MELOC #### [facility] [address] [place] [address] Dr. Manda York Immunoglobulin M, Qn, Serum 493 mg/dL Critically high 26-217 [facility] Comment on above: Result Comment: Perf ormed at: CB Performed By: #### LUIGI PATRICK #### [facility] [address] [place] [address] Dr. Manda York CHRISTIAN by IFAon 02-19-2022 Antinuclear Antibodies, IFA Negative Normal [facility] Comment on above: Result Comment: Nega tive <1:80 Borderline 1:80 Positive >1:80 ICAP nomenclature: AC-0 For more information about Hep-2 cell patterns use ANApatterns.org, the official website for the International Consensus on Antinuclear Antibody (CHRISTIAN) Patterns (ICAP). Performed By: #### LUIGI PATRICK #### [facility] [address] [place] [address] Dr. Manda York THYROID ANTIBODIESon 022 Thyroglobulin Antibody <1.0 Normal 0.0-0.9 [facility] Comment on above: Result Comment: Thyr oglobulin Antibody measured by [facility] [place] Methodology Performed By: #### F T4 #### [facility] [address] [place] [address] Dr. Manda York Thyroid Peroxidase (TPO) Ab <8 Normal 0-34 [facility] Comment on above: Performed By: #### F T4 #### [facility] [address] [place] [address] Dr. Manda York PROTEIN ELECTROPHERESISon 09 -26-2022 Albumin [Mass/Vol] 3.2 g/dL Normal 2.9-4.4 [facility] Comment on above: Performed By: #### F T4 #### [facility] [address] [place] [address] Dr. Manda York Albumin/Globulin [Mass ratio] 1.0 {ratio} Normal 0.7-1.7 [facility] Comment on above: Performed By: #### F T4 #### [facility] [address] [place] [address] Dr. Manda York Ekkhp-7-Bdkcngnu 0.2 g/dL Normal 0.0-0.4 [facility] Comment on above: Performed By: #### F T4 #### [facility] [address] [place] [address] Dr. Manda York Odcac-7-Txcplwwg 0.9 g/dL Normal 0.4-1.0 [facility] Comment on above: Performed By: #### F T4 #### [facility] [address] [place] [address] Dr. Manda York Beta Globulin 1.2 g/dL Normal 0.7-1.3 [facility] Comment on above: Performed By: #### F T4 #### [facility] [address] [place] [address] Dr. Manda York Gamma Globulin 0.9 g/dL Normal 0.4-1.8 [facility] Comment on above: Performed By: #### F T4 #### [facility] [address] [place] [address] Dr. Manda York Globulin (S) [Mass/Vol] 3.2 g/dL Normal 2.2-3.9 [facility] Comment on above: Performed By: #### F T4 #### [facility] [address] [place] [address] Dr. Manda oYrk M-Jose De Jesus Not Observed Normal Not Observed [facility] Comment on above: Performed By: #### F T4 #### [facility] [address] [place] [address] Dr. Manda York PDF . Normal [facility] Comment on above: Performed By: #### F T4 #### [facility] [address] [place] [address] Dr. Manda York Please note: Comment Normal [facility] Comment on above: Result Comment: Prot ein electrophoresis scan will follow via computer, mail, or sap trainer delivery. Performed By: #### F T4 #### [facility] [address] [place] [address] Dr. Manda York Protein [Mass/Vol] 6.4 g/dL Normal 6.0-8.5 [facility] Comment on above: Performed By: #### F T4 #### [facility] [address] [place] [address] Dr. Manda York SLE PROFILE Aon 02-16-2022 Anti-DNA (DS) Ab Qn 9 IU/mL Normal 0-9 [facility] Comment on above: Result Comment: Nega tive <5 Equivocal 5 - 9 Positive >9 Performed By: #### LUIGI PATRICK #### [facility] [address] [place] [address] Dr. Manda York Antichromatin Antibodies <0.2 Normal 0.0-0.9 [facility] Comment on above: Performed By: #### LUIGI PATRICK #### [facility] [address] [place] [address] Dr. Manda York RA Latex Turbid. <10.0 Normal <14.0 [facility] Comment on above: Performed By: #### LEANN PATRICKC #### [facility] [address] [address] [address] Manda York ANTENNA RIGGER Antibodies <0.2 Normal 0.0-0.9 [facility] Comment on above: Performed By: #### LEANN PATRICKC #### [facility] [address] [place] [address] Dr. Manda York Sjogren's Anti-SS-A <0.2 Normal 0.0-0.9 [facility] Comment on above: Performed By: #### LEANN PATRICKC #### [facility] [address] [address] [address] Manda York Sjogren's Anti-SS-B <0.2 Normal 0.0-0.9 [facility] Comment on above: Performed By: #### LUIGI PATRICK #### [facility] [address] [place] [address] Dr. Manda York Schneider Antibodies <0.2 Normal 0.0-0.9 [facility] Comment on above: Performed By: #### LUIGI PATRICK #### [facility] [address] [place] [address] Dr. Manda York ANTISTREPTOLYSIN O AB (ASO)o n 02-15-2022 Antistreptolysin O Ab 49.6 IU/mL Normal 0.0-200.0 [facility] Comment on above: Performed By: #### A SOAB #### [facility] [address] [place] [address] Dr. Manda York MICROALBUMIN URINEon 022 Albumin, Urine <3.0 Normal Not Estab. [facility] Comment on above: Result Comment: Ve rified by repeat analysis Performed By: #### C BC #### [facility] [address] [place] [address] Dr. Manda York T4, T3U, FTI LABCORPon 02-15 Free Thyroxine Index 2.6 Normal 1.2-4.9 [facility] Comment on above: Performed By: #### LUIGI PATRICK #### [facility] [address] [place] [address] Dr. Manda York T3 Uptake 26 % Normal 24-39 [facility] Comment on above: Performed By: #### LUIGI PATRICK #### [facility] [address] [place] [address] Dr. Manda York T4 [Mass/Vol] 9.9 ug/dL Normal 4.5-12.0 [facility] Comment on above: Performed By: #### LUIGI PATRICK #### [facility] [address] [place] [address] Dr. Manda York CBC AUTO DIFFon 02-14-2022 BASO # 0.1 103/ul Normal 0.0-0.1 [facility] Comment on above: Performed By: #### U AMIC #### [facility] [address] [address] [address] Manda York Basophils/100 WBC (Bld) 0.6 % Normal 0.2-2.0 [facility] Comment on above: Performed By: #### U AMIC #### [facility] [address] [address] [address] Manda York EO # 0.3 103/ul Normal 0.0-0.7 [facility] Comment on above: Performed By: #### U AMIC #### [facility] [address] [place] [address] Dr. Manda York Eosinophils/100 WBC (Bld) 3.4 % Normal 0.9-7.0 [facility] Comment on above: Performed By: #### U AMIC #### [facility] [address] [place] [address] Dr. Manda York Erythrocyte distribution width (RBC) [Ratio] 14.6 % Normal 11.0-15.0 [facility] Comment on above: Performed By: #### U AMIC #### [facility] [address] [place] [address] Dr. Manda York Hematocrit (Bld) [Volume fraction] 39.1 % Normal 36.0-48.0 [facility] Comment on above: Performed By: #### U AMIC #### [facility] [address] [place] [address] Dr. Manda York Hemoglobin (Bld) [Mass/Vol] 12.4 g/dL Normal 12.0-16.0 [facility] Comment on above: Performed By: #### U AMIC #### [facility] [address] [place] [address] Dr. Manda York IG # 0.03 10e3/ul Normal 0.00-0.03 [facility] Comment on above: Performed By: #### U AMIC #### [facility] [address] [address] [address] Manda York IG % 0.3 % Normal 0.0-0.5 [facility] Comment on above: Performed By: #### U AMIC #### [facility] [address] [address] [address] Manda York LYMPH # 3.6 103/ul Normal 1.2-3.8 [facility] Comment on above: Performed By: #### U AMIC #### [facility] [address] [place] [address] Dr. Manda York Lymphocytes/100 WBC (Bld) 39.9 % Normal 20.5-60.0 [facility] Comment on above: Performed By: #### U AMIC #### [facility] [address] [place] [address] Dr. Manda York MANUAL DIFF REQ NO Normal [facility] Comment on above: Performed By: #### U AMIC #### [facility] [address] [address] [address] Manda York MCH (RBC) [Entitic mass] 28.4 pg Normal 26.7-34.0 [facility] Comment on above: Performed By: #### U AMIC #### [facility] [address] [place] [address] Dr. Manda York MCHC (RBC) [Mass/Vol] 31.7 g/dL Normal 29.9-35.2 [facility] Comment on above: Performed By: #### U AMIC #### [facility] [address] [place] [address] Dr. Manda York MCV (RBC) [Entitic vol] 89.7 fL Normal 81.0-99.0 [facility] Comment on above: Performed By: #### U AMIC #### [facility] [address] [place] [address] Dr. Manda York MONO # 0.7 103/ul Normal 0.3-0.8 [facility] Comment on above: Performed By: #### U AMIC #### [facility] [address] [address] [address] Manda York Monocytes/100 WBC (Bld) 7.3 % Normal 1.7-12.0 [facility] Comment on above: Performed By: #### U AMIC #### [facility] [address] [place] [address] Dr. Manda York NEUT # 4.4 103/ul Normal 1.4-6.5 [facility] Comment on above: Performed By: #### U AMIC #### [facility] [address] [place] [address] Dr. aMnda York Neutrophils/100 WBC (Bld) 48.5 % Normal 43.0-75.0 [facility] Comment on above: Performed By: #### U AMIC #### [facility] [address] [place] [address] Dr. Manda York Platelet mean volume (Bld) [Entitic vol] 10.1 fL Normal 9.5-13.5 [facility] Comment on above: Performed By: #### U AMIC #### [facility] [address] [place] [address] Dr. Manda York PLT 310 103/ul Normal 150-450 [facility] Comment on above: Performed By: #### U AMIC #### [facility] [address] [place] [address] Dr. Manda York RBC 4.36 106/ul Normal 4.20-5.40 [facility] Comment on above: Performed By: #### U AMIC #### [facility] [address] [place] [address] Dr. Manda York WBC 9.0 103/ul Normal 4.0-11.0 [facility] Comment on above: Performed By: #### U AMIC #### [facility] [address] [place] [address] Dr. Manda York CRPon 02-14-2022 CRP [Mass/Vol] mg/L Normal <=1.[address] [facility] Comment on above: Performed By: #### U AMIC #### [facility] [address] [place] [address] Dr. Manda York CULTURE URINEon 02-14-2022 CULTURE URINE Culture Observations : LIGHT GROWTH OF MIXED GENITAL AMBER. NO POTENTIAL PATHOGENS SEEN. Normal [facility] Comment on above: Performed By: #### C BC #### [facility] [address] [place] [address] Dr. Manda York PROF 14(COMP METB)on 022 Albumin [Mass/Vol] 3.5 g/dL Normal 3.4-5.0 [facility] Comment on above: Performed By: #### U AMIC #### [facility] [address] [place] [address] Dr. Manda York Albumin/Globulin [Mass ratio] 1.0 {ratio} Normal [facility] Comment on above: Performed By: #### U AMIC #### [facility] [address] [place] [address] Dr. Madna York ALP [Catalytic activity/Vol] 71 U/L Normal 46-116 [facility] Comment on above: Performed By: #### U AMIC #### [facility] [address] [place] [address] Dr. Manda York ALT [Catalytic activity/Vol] 46 U/L Normal 14-59 [facility] Comment on above: Performed By: #### U AMIC #### [facility] [address] [place] [address] Dr. Manda York Anion gap [Moles/Vol] 11.6 mmol/L Normal [facility] Comment on above: Performed By: #### U AMIC #### [facility] [address] [place] [address] Dr. Manda York AST [Catalytic activity/Vol] 15 U/L Normal 15-37 [facility] Comment on above: Performed By: #### U AMIC #### [facility] [address] [place] [address] Dr. Manda York Bilirubin [Mass/Vol] 0.2 mg/dL Normal 0.2-1.0 [facility] Comment on above: Performed By: #### U AMIC #### [facility] [address] [address] [address] Manda York Calcium [Mass/Vol] 8.7 mg/dL Normal 8.5-10.1 [facility] Comment on above: Performed By: #### U AMIC #### [facility] [address] [address] [address] Manda York Chloride [Moles/Vol] 104 mmol/L Normal 98-107 [facility] Comment on above: Performed By: #### U AMIC #### [facility] [address] [address] [address] Manda York CO2 [Moles/Vol] 25.1 mmol/L Normal 21.0-32.0 [facility] Comment on above: Performed By: #### U AMIC #### [facility] [address] [place] [address] Dr. Manda York Creatinine [Mass/Vol] 0.80 mg/dL Normal 0.55-1.02 [facility] Comment on above: Performed By: #### U AMIC #### [facility] [address] [address] [address] Manda York EGFR-AF ALBANIAN >60 Normal >=60 [facility] Comment on above: Performed By: #### U AMIC #### [facility] [address] [place] [address] Dr. Manda York EGFR-NON AF ALBANIAN >60 Normal >=60 [facility] Comment on above: Performed By: #### U AMIC #### [facility] [address] [address] [address] Manda York Globulin (S) [Mass/Vol] 3.6 g/dL Normal [facility] Comment on above: Performed By: #### U AMIC #### [facility] [address] [address] [address] Manda York Glucose [Mass/Vol] 92 mg/dL Normal 74-106 [facility] Comment on above: Performed By: #### U AMIC #### [facility] [address] [place] [address] Dr. Manda York Potassium [Moles/Vol] 3.7 mmol/L Normal 3.5-5.1 [facility] Comment on above: Performed By: #### U AMIC #### [facility] [address] [address] [address] Manda York Protein [Mass/Vol] 7.1 g/dL Normal 6.4-8.2 [facility] Comment on above: Performed By: #### U AMIC #### [facility] [address] [address] [address] Manda York Sodium [Moles/Vol] 137 mmol/L Normal 136-145 [facility] Comment on above: Performed By: #### U AMIC #### [facility] [address] [place] [address] Dr. Manda York Urea nitrogen [Mass/Vol] 17.0 mg/dL Normal 7.0-18.0 [facility] Comment on above: Performed By: #### U AMIC #### [facility] [address] [address] [address] Manda York Urea nitrogen/Creatinine [Mass ratio] 21.2 mg/mg Normal [facility] Comment on above: Performed By: #### U AMIC #### [facility] [address] [place] [address] Dr. Manda York [facility] 40 mm/hr Critically high <=20 [facility] Comment on above: Performed By: #### S EDR #### [facility] [address] [place] [address] Dr. Manda York TSHon 02-14-2022 TSH 1.155 uIU/mL Normal 0.358-3.740 [facility] Comment on above: Performed By: #### U AMIC #### [facility] [address] [place] [address] Dr. Manda York UA RANDOM W/MICROSCOPICon BACTERIA NONE SEEN Normal NONE SEEN [facility] Comment on above: Performed By: #### U AMIC #### [facility] [address] [place] [address] Dr. Manda York Bilirubin Ql (U) Negative Normal NEGATIVE [facility] Comment on above: Performed By: #### U AMIC #### [facility] [address] [address] [address] Manda York CAST NONE SEEN Normal NONE SEEN [facility] Comment on above: Performed By: #### U AMIC #### [facility] [address] [address] [address] Manda York Clarity (U) CLEAR Normal CLEAR [facility] Comment on above: Performed By: #### U AMIC #### [facility] [address] [address] [address] Manda York Color (U) LT. YELLOW Normal YELLOW [facility] Comment on above: Performed By: #### U AMIC #### [facility] [address] [place] [address] Dr. Manda York Crystals LM Nom (Urine sed) NONE SEEN Normal NONE SEEN [facility] Comment on above: Performed By: #### U AMIC #### [facility] [address] [address] [address] Manda York Epithelial cells LM Ql (Urine sed) RARE Normal NONE SEEN /RARE [facility] Comment on above: Performed By: #### U AMIC #### [facility] [address] [address] [address] Manda York Glucose Ql (U) Negative Normal NEGATIVE [facility] Comment on above: Performed By: #### U AMIC #### [facility] [address] [address] [address] Manda York Hemoglobin Ql (U) Negative Normal NEGATIVE The [facility] Comment on above: Performed By: #### U AMIC #### [facility] [address] [address] [address] Manda York Ketones Ql (U) Negative Normal NEGATIVE [facility] Comment on above: Performed By: #### U AMIC #### [facility] [address] [address] [address] Manda York LEUKOCYTES Negative Normal NEGATIVE [facility] Comment on above: Performed By: #### U AMIC #### [facility] [address] [place] [address] [address] Manda York MUCOUS NONE SEEN Normal NONE SEEN [facility] Comment on above: Performed By: #### U AMIC #### [facility] [address] [place] [address] Dr. Manda York Nitrite Ql (U) Negative Normal NEGATIVE [facility] Comment on above: Performed By: #### U AMIC #### [facility] [address] [place] [address] Dr. Manda York pH (U) 6.0 [pH] Normal 5-9 [facility] Comment on above: Performed By: #### U AMIC #### [facility] [address] [place] [address] Dr. Manda York RBC NONE SEEN Abnormal 0-2 [facility] Comment on above: Performed By: #### U AMIC #### [facility] [address] [place] [address] Dr. Manda York SPEC GRAVITY 1.005 Normal 1.005-<=1.025 [facility] Comment on above: Performed By: #### U AMIC #### [facility] [address] [place] [address] Dr. Manda York UA PROTEIN Negative Normal NEGATIVE/ TRACE [facility] Comment on above: Performed By: #### U AMIC #### [facility] [address] [place] [address] Dr. Manda York Urobilinogen Qn (U) 0.2 {Carmella'U}/dL Normal 0.2 - 1. 0 [facility] Comment on above: Performed By: #### U AMIC #### [facility] [address] [place] [address] Dr. Manda York WBC NONE SEEN Normal NONE SEEN [facility] Comment on above: Performed By: #### U AMIC #### [facility] [address] [place] [address] Dr. Manda York URIC ACID SERUMon 02-14-2022 Urate [Mass/Vol] 4.2 mg/dL Normal 2.6-6.0 [facility] Comment on above: Performed By: #### U AMIC #### [facility] [address] [place] [address] Dr. Manda York VITAMIN D 25 OHon 02-14-2022 VIT D 25-OH 22.4 ng/mL Normal [facility] Comment on above: Performed By: #### F T4 #### [facility] [address] [place] [address] Dr. Manda York VIT D RANGES SEE BELOW Normal [facility] Comment on above: Result Comment: <20 ng/mL Vit D deficient 20 - <30 ng/mL Vit D insufficient 30 - 100 ng/mL Vit D sufficient >100 ng/mL Potential Toxicity Performed By: #### F T4 #### [facility] [address] [place] [address] Dr. Manda York METANEPHRINES FRAC. QNT 24 H R URINEon 11-28-2021 Metanephrine, U,24hr Comment Normal 36-209 [facility] Comment on above: Result Comment: No t otal volume submitted. Unable to calculate 24 hour result. Performed By: #### S LUIGI MELO #### [facility] [address] [place] [address] Dr. Manda York Metanephrine, Ur 57 ug/L Normal Undefined [facility] Comment on above: Performed By: #### S LEANN MELOC #### [facility] [address] [place] [address] Dr. Manda York Normetanephr.,U,24h Comment Normal 131-612 [facility] Comment on above: Result Comment: No t otal volume submitted. Unable to calculate 24 hour result. Performed By: #### S LEANN MELOC #### [facility] [address] [place] [address] Dr. Manda York Normetanephrine, Ur 116 ug/L Normal Undefined [facility] Comment on above: Performed By: #### S LEANN MELOC #### [facility] [address] [place] [address] Dr. Manda York METANEPHRINES PLASMA FREEon 11-27-2021 Metanephrine, Pl 22.1 pg/mL Normal 0.0-88.0 [facility] Comment on above: Performed By: #### Lucinda MELO [facility] #### [facility] [address] [place] [address] Dr. Manda York Normetanephrine, Pl 50.7 pg/mL Normal 0.0-218.9 [facility] Comment on above: Performed By: #### Lucinda MELO [facility] #### [facility] [address] [place] [address] Dr. Manda York CMV PLASMA PCRon 11-19-2021 CMV Quant DNA PCR (Plasma) Negative Normal Negative [facility] Comment on above: Result Comment: No C MV DNA detected. The quantitative range of this assay is 200 to 1 million IU/mL. Performed By: #### LEANN PATRICK #### [facility] [address] [place] [address] Dr. Manda York log10 CMV Qn DNA Pl UPTCAL Normal [facility] Comment on above: Result Comment: Unab le to calculate result since non-numeric result obtained for component test. Performed By: #### Lucinda MELO [facility] #### [facility] [address] [place] [address] Dr. Manda York CMV AB IGMon 11-18-2021 Cytomegalovirus (CMV) Ab, IgM 43.2 AU/mL Critically high 0.0-29.9 [facility] Comment on above: Result Comment: Nega tive <30.0 Equivocal 30.0 - 34.9 Positive >34.9 A positive result is generally indicative of acute infection, reactivation or persistent IgM production. Performed By: #### Lucinda MELO [facility] #### [facility] [address] [place] [address] Dr. Manda York CMV AB, IGGon 11-18-2021 Cytomegalovirus (CMV) Ab, IgG >10.00 Critically high 0.00-0.59 [facility] Comment on above: Result Comment: Nega tive <0.60 Equivocal 0.60 - 0.69 Positive >0.69 Performed By: #### C MVIGG #### [facility] [address] [address] [address] Manda York CBC AUTO DIFFon 11-17-2021 BASO # 0.1 103/ul Normal 0.0-0.1 [facility] Comment on above: Performed By: #### C BC #### [facility] [address] [address] [address] Manda York Basophils/100 WBC (Bld) 0.6 % Normal 0.2-2.0 [facility] Comment on above: Performed By: #### C BC #### [facility] [address] [place] [address] Dr. Manda York EO # 0.2 103/ul Normal 0.0-0.7 [facility] Comment on above: Performed By: #### C BC #### [facility] [address] [place] [address] Dr. Manda York Eosinophils/100 WBC (Bld) 2.3 % Normal 0.9-7.0 [facility] Comment on above: Performed By: #### C BC #### [facility] [address] [place] [address] Dr. Manda York Erythrocyte distribution width (RBC) [Ratio] 14.2 % Normal 11.0-15.0 [facility] Comment on above: Performed By: #### C BC #### [facility] [address] [place] [address] Dr. Manda York Hematocrit (Bld) [Volume fraction] 40.2 % Normal 36.0-48.0 [facility] Comment on above: Performed By: #### C BC #### [facility] [address] [place] [address] Dr. Manda York Hemoglobin (Bld) [Mass/Vol] 12.8 g/dL Normal 12.0-16.0 [facility] Comment on above: Performed By: #### C BC #### [facility] [address] [place] [address] Dr. Manda York IG # 0.02 10e3/ul Normal 0.00-0.03 [facility] Comment on above: Performed By: #### C BC #### [facility] [address] [place] [address] Dr. Manda York IG % 0.2 % Normal 0.0-0.5 [facility] Comment on above: Performed By: #### C BC #### [facility] [address] [place] [address] Dr. Manda York LYMPH # 2.5 103/ul Normal 1.2-3.8 [facility] Comment on above: Performed By: #### C BC #### [facility] [address] [place] [address] Dr. Manda York Lymphocytes/100 WBC (Bld) 24.9 % Normal 20.5-60.0 [facility] Comment on above: Performed By: #### C BC #### [facility] [address] [place] [address] Dr. Manda York MANUAL DIFF REQ NO Normal [facility] Comment on above: Performed By: #### C BC #### [facility] [address] [place] [address] Dr. Manda York MCH (RBC) [Entitic mass] 27.9 pg Normal 26.7-34.0 [facility] Comment on above: Performed By: #### C BC #### [facility] [address] [place] [address] Dr. Manda York MCHC (RBC) [Mass/Vol] 31.8 g/dL Normal 29.9-35.2 [facility] Comment on above: Performed By: #### C BC #### [facility] [address] [place] [address] Dr. Manda York MCV (RBC) [Entitic vol] 87.6 fL Normal 81.0-99.0 [facility] Comment on above: Performed By: #### C BC #### [facility] [address] [place] [address] Dr. Manda York MONO # 0.6 103/ul Normal 0.3-0.8 [facility] Comment on above: Performed By: #### C BC #### [facility] [address] [place] [address] Dr. Manda York Monocytes/100 WBC (Bld) 6.3 % Normal 1.7-12.0 [facility] Comment on above: Performed By: #### C BC #### [facility] [address] [place] [address] Dr. Manda York NEUT # 6.5 103/ul Normal 1.4-6.5 [facility] Comment on above: Performed By: #### C BC #### [facility] [address] [place] [address] Dr. Manda York Neutrophils/100 WBC (Bld) 65.7 % Normal 43.0-75.0 [facility] Comment on above: Performed By: #### C BC #### [facility] [address] [place] [address] Dr. Manda York Platelet mean volume (Bld) [Entitic vol] 10.1 fL Normal 9.5-13.5 [facility] Comment on above: Performed By: #### C BC #### [facility] [address] [place] [address] Dr. Manda York PLT 304 103/ul Normal 150-450 [facility] Comment on above: Performed By: #### C BC #### [facility] [address] [place] [address] Dr. Manda York RBC 4.59 106/ul Normal 4.20-5.40 [facility] Comment on above: Performed By: #### C BC #### [facility] [address] [place] [address] Dr. Manda York WBC 9.9 103/ul Normal 4.0-11.0 [facility] Comment on above: Performed By: #### C BC #### [facility] [address] [place] [address] Dr. Manda York PROF 14(COMP METB)on 022 Albumin [Mass/Vol] 3.7 g/dL Normal 3.4-5.0 [facility] Comment on above: Performed By: #### C BC #### [facility] [address] [place] [address] Dr. Manda York Albumin/Globulin [Mass ratio] 1.0 {ratio} Normal [facility] Comment on above: Performed By: #### C BC #### [facility] [address] [place] [address] Dr. Manda York ALP [Catalytic activity/Vol] 65 U/L Normal 46-116 [facility] Comment on above: Performed By: #### C BC #### [facility] [address] [place] [address] Dr. Manda York ALT [Catalytic activity/Vol] 35 U/L Normal 14-59 [facility] Comment on above: Performed By: #### C BC #### [facility] [address] [place] [address] Dr. Manda York Anion gap [Moles/Vol] 13.0 mmol/L Normal [facility] Comment on above: Performed By: #### C BC #### [facility] [address] [place] [address] Dr. Manda York AST [Catalytic activity/Vol] 12 U/L Critically low 15-37 [facility] Comment on above: Performed By: #### C BC #### [facility] [address] [place] [address] Dr. Manda York Bilirubin [Mass/Vol] 0.2 mg/dL Normal 0.2-1.0 [facility] Comment on above: Performed By: #### C BC #### [facility] [address] [place] [address] Dr. Manda York Calcium [Mass/Vol] 8.7 mg/dL Normal 8.5-10.1 [facility] Comment on above: Performed By: #### C BC #### [facility] [address] [place] [address] Dr. Manda York Chloride [Moles/Vol] 104 mmol/L Normal 98-107 [facility] Comment on above: Performed By: #### C BC #### [facility] [address] [place] [address] Dr. Manda York CO2 [Moles/Vol] 24.9 mmol/L Normal 21.0-32.0 [facility] Comment on above: Performed By: #### C BC #### [facility] [address] [address] [address] Manda York Creatinine [Mass/Vol] 0.77 mg/dL Normal 0.55-1.02 [facility] Comment on above: Performed By: #### C BC #### [facility] [address] [address] [address] Manda York EGFR-AF ALBANIAN >=60 Normal >=60 [facility] Comment on above: Performed By: #### C BC #### [facility] [address] [place] [address] Dr. Manda York EGFR-NON AF ALBANIAN >=60 Normal >=60 [facility] Comment on above: Performed By: #### C BC #### [facility] [address] [place] [address] Dr. Manda York Globulin (S) [Mass/Vol] 3.8 g/dL Normal [facility] Comment on above: Performed By: #### C BC #### [facility] [address] [place] [address] Dr. Manda York Glucose [Mass/Vol] 110 mg/dL Critically high 74-106 [facility] Comment on above: Performed By: #### C BC #### [facility] [address] [place] [address] Dr. Manda York Potassium [Moles/Vol] 3.9 mmol/L Normal 3.5-5.1 [facility] Comment on above: Performed By: #### C BC #### [facility] [address] [place] [address] Dr. Manda York Protein [Mass/Vol] 7.5 g/dL Normal 6.4-8.2 [facility] Comment on above: Performed By: #### C BC #### [facility] [address] [place] [address] Dr. Manda York Sodium [Moles/Vol] 138 mmol/L Normal 136-145 [facility] Comment on above: Performed By: #### C BC #### [facility] [address] [place] [address] Dr. Manda York Urea nitrogen [Mass/Vol] 17.0 mg/dL Normal 7.0-18.0 [facility] Comment on above: Performed By: #### C BC #### [facility] [address] [place] [address] Dr. Manda York Urea nitrogen/Creatinine [Mass ratio] 22.1 mg/mg Normal [facility] Comment on above: Performed By: #### C BC #### [facility] [address] [place] [address] Dr. Manda York SED RATE [facility] 2021 SED RATE 45 mm/hr Critically high <=20 [facility] Comment on above: Performed By: #### F T4 #### [facility] [address] [place] [address] Dr. Manda York CHRISTIAN EIA W/REFLEX 5 BIOMARKER Son 10-06-2021 CHRISTIAN Direct Positive Abnormal Negative [facility] Comment on above: Performed By: #### C BC #### [facility] [address] [place] [address] Dr. Manda York Anti-DNA (DS) Ab Qn 10 IU/mL Critically high 0-9 [facility] Comment on above: Result Comment: Nega tive <5 Equivocal 5 - 9 Positive >9 Performed By: #### C BC #### [facility] [address] [place] [address] Dr. Manda York ANTENNA RIGGER Antibodies <0.2 Normal 0.0-0.9 [facility] Comment on above: Performed By: #### C BC #### [facility] [address] [place] [address] Dr. Manda York SEE BELOW: Comment Normal [facility] Comment on above: Result Comment: Auto antibody [...] Sm (anti-Schneider) SLE 15 - 30% --------- ANTENNA RIGGER Mixed Connective Tissue Disease 95% (U1 nRNP, SLE 30 - 50% anti-ribonucleoprotein) Polymyositis and/or Dermatomyositis 20% --------- Scl-70 (antiDNA Scleroderma (diffuse) 20 - 35% topoisomerase) Crest 13% --------- Felicita-1 Polymyositis and/or Dermatomyositis 20 - 40% --------- Centromere B Scleroderma - Crest variant 80% Performed By: #### C BC #### [facility] [address] [place] [address] Dr. Manda York Sjogryaniv's Anti-SS-A <0.2 Normal 0.0-0.9 [facility] Comment on above: Performed By: #### C BC #### [facility] [address] [place] [address] Dr. Manda York Sjogryaniv's Anti-SS-B <0.2 Normal 0.0-0.9 [facility] Comment on above: Performed By: #### C BC #### [facility] [address] [place] [address] Dr. Manda York Schneider Antibodies <0.2 Normal 0.0-0.9 [facility] Comment on above: Performed By: #### C BC #### [facility] [address] [place] [address] Dr. Manda York CMV PLASMA PCRon 10-06-2021 CMV Quant DNA PCR (Plasma) Negative Normal Negative [facility] Comment on above: Result Comment: No C MV DNA detected. The quantitative range of this assay is 200 to 1 million IU/mL. Performed By: #### C MVPL #### [facility] [address] [place] [address] Dr. Manda York log10 CMV Qn DNA Pl UPTCAL Normal [facility] Comment on above: Result Comment: Unab le to calculate result since non-numeric result obtained for component test. Performed By: #### C MVPL #### [facility] [address] [place] [address] Dr. Manda York CMV AB IGMon 2021 Cytomegalovirus (CMV) Ab, IgM 35.5 AU/mL Critically high 0.0-29.9 [facility] Comment on above: Result Comment: Nega tive <30.0 Equivocal 30.0 - 34.9 Positive >34.9 A positive result is generally indicative of acute infection, reactivation or persistent IgM production. Performed By: #### S LUIGI MELO #### [facility] [address] [place] [address] Dr. Manda York CMV AB, IGGon 2021 Cytomegalovirus (CMV) Ab, IgG 6.30 U/mL Critically high 0.00-0.59 [facility] Comment on above: Result Comment: Nega tive <0.60 Equivocal 0.60 - 0.69 Positive >0.69 Performed By: #### S LUIGI MELO #### [facility] [address] [place] [address] Dr. Manad York CBC AUTO DIFFon 10-03-2021 BASO # 0.1 103/ul Normal 0.0-0.1 [facility] Comment on above: Performed By: #### C BC #### [facility] [address] [place] [address] Dr. Manda York Basophils/100 WBC (Bld) 0.7 % Normal 0.2-2.0 [facility] Comment on above: Performed By: #### C BC #### [facility] [address] [place] [address] Dr. Manda York EO # 0.2 103/ul Normal 0.0-0.7 [facility] Comment on above: Performed By: #### C BC #### [facility] [address] [place] [address] Dr. Manda York Eosinophils/100 WBC (Bld) 2.0 % Normal 0.9-7.0 [facility] Comment on above: Performed By: #### C BC #### [facility] [address] [place] [address] Dr. Manda York Erythrocyte distribution width (RBC) [Ratio] 14.4 % Normal 11.0-15.0 [facility] Comment on above: Performed By: #### C BC #### [facility] [address] [place] [address] Dr. Manda York Hematocrit (Bld) [Volume fraction] 37.2 % Normal 36.0-48.0 [facility] Comment on above: Performed By: #### C BC #### [facility] [address] [place] [address] Dr. Manda York Hemoglobin (Bld) [Mass/Vol] 12.3 g/dL Normal 12.0-16.0 [facility] Comment on above: Performed By: #### C BC #### [facility] [address] [place] [address] Dr. Manda York IG # 0.02 10e3/ul Normal 0.00-0.03 [facility] Comment on above: Performed By: #### C BC #### [facility] [address] [place] [address] Dr. Manda York IG % 0.2 % Normal 0.0-0.5 [facility] Comment on above: Performed By: #### C BC #### [facility] [address] [place] [address] Dr. Manda York LYMPH # 2.1 103/ul Normal 1.2-3.8 [facility] Comment on above: Performed By: #### C BC #### [facility] [address] [place] [address] Dr. Manda York Lymphocytes/100 WBC (Bld) 26.4 % Normal 20.5-60.0 [facility] Comment on above: Performed By: #### C BC #### [facility] [address] [place] [address] Dr. Manda York MANUAL DIFF REQ NO Normal [facility] Comment on above: Performed By: #### C BC #### [facility] [address] [place] [address] Dr. Manda York MCH (RBC) [Entitic mass] 29.2 pg Normal 26.7-34.0 [facility] Comment on above: Performed By: #### C BC #### [facility] [address] [place] [address] Dr. Manda York MCHC (RBC) [Mass/Vol] 33.1 g/dL Normal 29.9-35.2 [facility] Comment on above: Performed By: #### C BC #### [facility] [address] [place] [address] Dr. Manda York MCV (RBC) [Entitic vol] 88.4 fL Normal 81.0-99.0 [facility] Comment on above: Performed By: #### C BC #### [facility] [address] [place] [address] Dr. Manda York MONO # 0.5 103/ul Normal 0.3-0.8 [facility] Comment on above: Performed By: #### C BC #### [facility] [address] [place] [address] Dr. Manda York Monocytes/100 WBC (Bld) 6.7 % Normal 1.7-12.0 [facility] Comment on above: Performed By: #### C BC #### [facility] [address] [place] [address] Dr. Manda York NEUT # 5.2 103/ul Normal 1.4-6.5 [facility] Comment on above: Performed By: #### C BC #### [facility] [address] [place] [address] Dr. Manda York Neutrophils/100 WBC (Bld) 64.0 % Normal 43.0-75.0 [facility] Comment on above: Performed By: #### C BC #### [facility] [address] [place] [address] Dr. Manda York Platelet mean volume (Bld) [Entitic vol] 10.5 fL Normal 9.5-13.5 [facility] Comment on above: Performed By: #### C BC #### [facility] [address] [place] [address] Dr. Manda York PLT 265 103/ul Normal 150-450 [facility] Comment on above: Performed By: #### C BC #### [facility] [address] [place] [address] Dr. Manda York RBC 4.21 106/ul Normal 4.20-5.40 [facility] Comment on above: Performed By: #### C BC #### [facility] [address] [place] [address] Dr. Manda York WBC 8.1 103/ul Normal 4.0-11.0 [facility] Comment on above: Performed By: #### C BC #### [facility] [address] [place] [address] Dr. Manda York CRPon 10-03-2021 CRP [Mass/Vol] mg/L Normal <=1.0 [facility] Comment on above: Performed By: #### F T4 #### [facility] [address] [place] [address] Dr. Manda York SED RATE [facility] 2021 SED RATE 34 mm/hr Critically high <=20 [facility] Comment on above: Performed By: #### C BC #### [facility] [address] [place] [address] Dr. Manda York CHLORIDE (POC)Ordered By: Jae Holley on 10-07-2020 Chloride [Moles/Vol] 106 mmol/L 98 - 10 7 mmol/L [employer] Work Phone: Catheterization and angiogra phy procedure details panelOrdered By: Jonas Holley on 10-07-2020 Cardiac Diagnostic Report Demographics Patient TERA Torres Date of Study 10/07/2020 Name Date of 1980 Gender Female Age 40 year(s) Race Room [id number]^GINO Height: 67 inch, 170.18 cm Number [employer] [id number] Weight: 234 pounds, 106.1 kg ID # Patient [id number] BSA: 2.16 m^2 BMI: 36.65 kg/m^2 Acct # MR # [id number] Performing Jonas Holley Physician Referring # Physician [...] Right coronary angiography. Contrast Material: - Isovue 30626 ml Fluoroscopy Time: Diagnostic: 2:12 minutes. Total: [...] assessed as CCS II according to the Orange clinical classification. Hemodynamics Condition: Baseline Room Air [...] + + !Aortic (more content not included)... [employer] Phone: Jr, pn Incoming Cardio Results From [facility]/ - 10/07/2020 10:37 AM EDT Cardiac Diagnostic Report Demographics Patient TERA Torres Date of Study 10/07/2020 Name Date of 1980 Gender Female Age 40 year(s) Race Room [id number]^GINO Height: 67 inch, 170.18 cm Number Corporate [id number] Weight: 234 pounds, 106.1 kg ID # Patient [id number] BSA: 2.16 m^2 BMI: 36.65 kg/m^2 Acct # MR # [id number] Performing Jonas Holley Physician Referring # Physician [...] Right coronary angiography. Contrast Material: - Isovue 25438 ml Fluoroscopy Time: Diagnostic: 2:12 minutes. Total: [...] assessed as CCS II according to the Orange clinical classification. Hemodynamics Condition: Baseline Room Air [...] +--------- + + Shunts Oxygen Values O2 [id number] Frkdfhszfwa250.52 [employer] Phone: [employer] Phone: [employer] Phone: Creatinine W/GFR Point of Ca reOrdered By: Jonas Holley on 10-07-2020 Creatinine [Mass/Vol] 0.64 mg/dL 0.51 - 1.19 mg/dL [employer] Phone: GFR Non- >60 >60 mL/min [employer] Phone: GFR/1.73 sq M.predicted MDRD (S/P/Bld) [Vol rate/Area] mL/min/{1.73_m2} >60 mL/min [employer] Phone: GFR/1.73 sq M.predicted MDRD (S/P/Bld) [Vol rate/Area] [employer] Phone: Comment on above: Average GFR for 40-4 9 years old: 99 mL/min/1.73sq m Chronic Kidney Disease: <60 mL/min/1.73sq m Kidney failure: <15 mL/min/1.73sq m eGFR calculated using average adult body mass. Additional eGFR calculator available at: http://www.[employer]/multiple_crcl_2012.htm Hemoglobin and hematocrit, b loodOrdered By: Jonas Holley on 10-07-2020 Hematocrit (Bld) [Volume fraction] 41 % 36 - 46 % [employer] Phone: Hemoglobin (Bld) [Mass/Vol] 14.0 g/dL 12.0 - 16.0 g/dL [employer] Phone: No Panel InformationOrdered By: Jonas Holley on 10-07-2020 [employer] Phone: POCT GlucoseOrdered By: Anu Holley on 10-07-2020 Glucose [Mass/Vol] 98 mg/dL 74 - 100 mg/dL [employer] Phone: POCT urine pregnancyOrdered By: Jonas Holley on 10-07-2020 Beta HCG ( test) Ql (U) Negative NEGATIVE [employer] Phone: Comment on above: Specimens with hCG l evels near the threshold of the test (25 mIU/mL) may give a negative or indeterminate result. In such cases, another test should be performed with a new specimen in 48-72 hours. If early is suspected clinically in this setting, correlation with quantitative serum b-hCG level is suggested. [employer] Phone: POTASSIUM (POC)Ordered By: Al Holley on 10-07-2020 Potassium [Moles/Vol] 3.8 mmol/L 3.5 - 4.5 mmol/L [employer] Phone: Platelet Counton 10-07-2020 Platelets (Bld) [#/Vol] 299 10*3/uL Normal 138-453 [facility] Comment on above: Performed By: #### P LT #### [employer] [address] [place] [address] Gray Tender: Rick Serrano MD Platelet countOrdered By: Jae Holley on 10-07-2020 Platelets (Bld) [#/Vol] 299 10*3/uL [employer] Phone: [employer] Phone: SODIUM (POC)Ordered By: Anu Holley on 10-07-2020 Sodium [Moles/Vol] 141 mmol/L 138 - 146 mmol/L [employer] Phone: Coding Summary.on 01-12-2019 Coding Summary. CODING DATE: 01/12/2019 FINAL [facility] STATUS: Home (Routine DC) PAYOR: Medicaid EA [...] index (BMI) 34.0-34.9, adult Z79.899 Other long term care social worker (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 However, the narrative phrase printed from the coding software may appear abbreviated, or result in slightly different terminology. Coded By: Luz Judd Date Saved: 01/12/2019 10:25 am Normal [facility] Coding Summary. CODING DATE: 01/12/2019 FINAL [facility] STATUS: Home (Routine DC) PAYOR: Medicaid EAPG [...] mass index (BMI) 34.0-34.9, adult Z79.899 Other halfway (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 However, the narrative phrase printed from the coding software may appear abbreviated, or result in slightly different terminology. Revised Coded By: Luz Judd Revised Date Saved: 01/12/2019 10:25 am Normal [facility] XR Chest 2 Viewson 9 XR [...] M.D. Transcribed by: BILL Technologist: ZOILA Normal [facility] Auto Diffon 01-11-2019 Basophils/100 WBC (Bld) 0.8 % Normal 0.0-2.0 [facility] Comment on above: Order Comment: Order Added by Discern Expert. Performed By: #### 1 [id number], 1711929, 3303909, 5271944, 82080193, 7187056, 1411919, 3629871, 6558361, 10263976, 8424566 #### [facility] [address] [place] [address] Basophils/Leukocytes Auto (Bld) [Pure # fraction] 0.1 E9/L Normal 0.0-0.2 [facility] Comment on above: Order Comment: Order Added by Tosin Expert. Performed By: #### 1 5892816, 4980893, 5082567, 5890631, 88578787, 2635391, 2796365, 0443942, 2391543, 07064377, 1047600 #### [facility] [address] [place] [address] Eosinophils/100 WBC (Bld) 1.9 % Normal 0.0-8.0 [facility] Comment on above: Order Comment: Order Added by Discern Expert. Performed By: #### 1 7458440, 7726593, 5892919, 3920428, 48666039, 0381211, 4176480, 5824006, 3462057, 03396000, 2972298 #### [facility] [address] [place] [address]798 Eosinophils/Leukocytes Auto (Bld) [Pure # fraction] 0.1 E9/L Normal 0.0-0.5 [facility] Comment on above: Order Comment: Order Added by Tosin Expert. Performed By: #### 1 2745547, 8184689, 2416377, 0814162, 96595548, 5549673, 9415076, 8046536, 6406806, 72350373, 3944760 #### [facility] [address] [place] [address]39 Lymphocytes/100 WBC (Bld) 28.0 % Normal 14.0-50.0 [facility] Comment on above: Order Comment: Order Added by Discern Expert. Performed By: #### 1 0863220, 0216350, 8992920, 3802157, 37939198, 1822956, 5472900, 8003910, 5800989, 35157098, 2386974 #### [facility] [address] [place] [address] Lymphocytes/Leukocytes Auto (Bld) [Pure # fraction] 2.2 E9/L Normal 1.0-4.0 [facility] Comment on above: Order Comment: Order Added by Tosin Expert. Performed By: #### 1 2054677, 0709240, 2922438, 3494521, 16533809, 0397256, 3854583, 5468417, 3766492, 32442238, 2894452 #### [facility] [address] [place] [address] 23946 Monocytes/100 WBC (Bld) 7.0 % Normal 4.0-14.0 [facility] Comment on above: Order Comment: Order Added by Discern Expert. Performed By: #### 1 7362242, 2851973, 9943156, 8823630, 00724314, 5754824, 4965690, 9772225, 8254601, 76653458, 7537854 #### [facility] [address] [place] [address]126 Monocytes/Leukocytes Auto (Bld) [Pure # fraction] 0.6 E9/L Normal 0.2-1.0 [facility] Comment on above: Order Comment: Order Added by Discern Expert. Performed By: #### 1 4783306, 7784939, 8475222, 3610347, 98590358, 6239616, 4553796, 3366331, 8917128, 58352617, 2624910 #### [facility] [address] [place] [address] 21494 Neutrophils/100 WBC (Bld) 62.3 % Normal 36.0-75.0 [facility] Comment on above: Order Comment: Order Added by Discern Expert. Performed By: #### 1 8737934, 5840255, 4664694, 8856792, 11413409, 2818189, 8059947, 3690820, 7401893, 08207212, 8124010 #### [facility] [address] [place] [address] 72125 Neutrophils/Leukocytes Auto (Bld) [Pure # fraction] 4.9 E9/L Normal 2.0-7.5 [facility] Comment on above: Order Comment: Order Added by Discern Expert. Performed By: #### 1 4828999, 9736470, 2100519, 5935328, 14558544, 6141855, 9413662, 5667455, 3406906, 58390621, 7067191 #### [facility] [address] [place] [address] BMPon 01-11-2019 Creatinine [Mass/Vol] 0.7 mg/dL Normal 0.5-1.3 [facility] Comment on above: Performed By: #### 1 8019556, 4102771, 2206256, 1641016, 91818130, 5085314, 5252559, 5230290, 6248337, 65378196, 6278860 #### [facility] [address] [place] [address] Urea nitrogen [Mass/Vol] 11 mg/dL Normal 5-21 [facility] Comment on above: Performed By: #### 1 7432373, 5657938, 5798932, 6184639, 70731908, 6096863, 8606046, 7760337, 8099774, 00831606, 3590833 #### [facility] [address] [place] [address] Urea nitrogen/Creatinine [Mass ratio] 16 No Units Normal 10-20 [facility] Comment on above: Performed By: #### 1 1408885, 7539263, 4089049, 0868637, 67225914, 4062390, 0739531, 5736963, 5117835, 27919291, 6322903 #### [facility] [address] [place] [address] Anion gap [Moles/Vol] 14 mmol/L Normal 6-16 [facility] Comment on above: Performed By: #### 1 9775589, 7146195, 3904777, 3485963, 77853612, 2063872, 6163887, 2023145, 3595156, 59747131, 6710911 #### [facility] [address] [place] [address] Calcium [Mass/Vol] 8.9 mg/dL Normal 8.9-11.1 [facility] Comment on above: Performed By: #### 1 8204373, 9383118, 2036254, 6500408, 87224007, 4473131, 7411392, 0536211, 9352125, 92220997, 1884107 #### [facility] [address] [place] [address] Chloride [Moles/Vol] 107 mmol/L Normal 101-111 [facility] Comment on above: Performed By: #### 1 0570225, 8698255, 0397700, 7481623, 69942571, 6076193, 5700198, 3911912, 0080240, 77483067, 2564601 #### [facility] [address] [place] [address] CO2 [Moles/Vol] 22 mmol/L Normal 21-31 [facility] Comment on above: Performed By: #### 1 6883564, 5178515, 1743340, 5709263, 04557515, 1828716, 4598398, 4585943, 2052125, 80095955, 7773927 #### [facility] [address] [place] [address] Glucose [Mass/Vol] 122 mg/dL Normal 55-199 [facility] Comment on above: Result Comment: If t his glucose result represents a fasting glucose, interpretation should refer to the following reference range: 55-99 mg/dL Performed By: #### 1 5770536, 0692771, 3458274, 9087537, 47656162, 6729598, 4345112, 8295667, 3414172, 44572781, 2194320 #### [facility] [address] [place] [address] Potassium [Moles/Vol] 3.8 mmol/L Normal 3.5-5.3 [facility] Comment on above: Performed By: #### 1 5063688, 2548175, 5580421, 3482403, 68311221, 0252750, 6724492, 8309457, 1655991, 79791113, 9347303 #### [facility] [address] [place] [address] Sodium [Moles/Vol] 139 mmol/L Normal 135-145 [facility] Comment on above: Performed By: #### 1 8322518, 5072409, 8181756, 6565367, 93201048, 2521384, 2003370, 5064302, 4263840, 45878352, 5846089 #### [facility] [address] [place] [address] CBC w/ Auto Diffon Erythrocyte distribution width (RBC) [Ratio] 14.0 % Normal 10.9-14.2 [facility] Comment on above: Performed By: #### 1 9171756, 6980093, 2916868, 1825098, 88989980, 7912344, 7987041, 5777848, 5176680, 19533394, 7963239 #### [facility] [address] [place] [address] Hematocrit (Bld) [Volume fraction] 39.9 % Normal 34.0-46.0 [facility] Comment on above: Performed By: #### 1 9744575, 1669305, 7559302, 1560215, 54530089, 4729392, 8146328, 2736202, 4516911, 13810639, 1340865 #### [facility] [address] [place] [address] Hemoglobin (Bld) [Mass/Vol] 13.5 g/dL Normal 12.0-16.0 [facility] Comment on above: Performed By: #### 1 0599110, 4912858, 5217557, 3468577, 75860116, 2937333, 3173428, 5138326, 4674211, 80127462, 0662506 #### [facility] [address] [place] [address] MCH (RBC) [Entitic mass] 29.4 pg Normal 27.0-34.0 [facility] Comment on above: Performed By: #### 1 5981473, 9112463, 5082509, 1079771, 66485828, 8828348, 2024244, 4522617, 7669108, 96181649, 5222795 #### [facility] [address] [place] [address] MCHC (RBC) [Mass/Vol] 33.7 g/dL Normal 33.3-35.7 [facility] Comment on above: Performed By: #### 1 6519853, 9822813, 6658315, 5579798, 19716737, 3674702, 5175044, 3886508, 7609623, 68191098, 1725477 #### [facility] [address] [place] [address] MCV (RBC) [Entitic vol] 87.4 fL Normal 80.0-100.0 [facility] Comment on above: Performed By: #### 1 6209381, 9341795, 9170512, 0861745, 82236236, 6274014, 9750177, 0585909, 4654348, 39791086, 8096283 #### [facility] [address] [place] [address] Platelet mean volume (Bld) [Entitic vol] 8.5 fL Normal 6.4-10.8 [facility] Comment on above: Performed By: #### 1 4675503, 9156206, 1119428, 8359022, 98202590, 8406897, 8445625, 7616942, 4675354, 77392431, 3376884 #### [facility] [address] [place] [address] Platelets (Bld) [#/Vol] 244.0 E9/L Normal 150.0-500.0 [facility] Comment on above: Performed By: #### 1 6072176, 2939398, 4820095, 2757659, 63419246, 2407877, 6434312, 8019600, 0548206, 32780960, 1589855 #### [facility] [address] [place] [address] RBC (Bld) [#/Vol] 4.6 E12/L Normal 4.3-5.9 [facility] Comment on above: Performed By: #### 1 4915009, 7890568, 0063478, 9802782, 17801727, 5100525, 4976775, 9284033, 2444438, 25828364, 6237836 #### [facility] [address] [place] [address] WBC corrected for nucl RBC Auto (Bld) [#/Vol] 7.9 E9/L Normal 4.0-11.0 [facility] Comment on above: Performed By: #### 1 7517517, 1845795, 0069613, 0859014, 72821957, 1342711, 2572953, 2802049, 6530776, 07904857, 6664334 #### [facility] [address] [place] [address] D-Dimeron 01-11-2019 Fibrin D-dimer FEU (PPP) [Mass/Vol] 265 ng/mL Normal 215-500 [facility] Comment on above: Result [...] infections Liver cirrhosis Performed By: #### 1 7183468, 5785849, 5208258, 6455280, 05644856, 4403315, 1316835, 5067031, 5806886, 88554284, 5802698 #### [facility] [address] [place] [address] ED Clinical Summaryon 2018 ED Clinical Summary [address] [address] ED Clinical Summary Person Information Name: ARIADNA HALEY [place] Age: 38 Years : 1980 12:00 AM Sex: Female Language: Guinean PCP: Charles Nicole DO Marital Status: Single Phone: [phone] Visit Id: Visit Reason: Chest pain; CHEST [...] 01/11/2019 6:42 PM 01/11/2019 6:42 PM ADDRESS: [address] [place] [phone] PHYS DOC NOTES: MEDICAL INFORMATION: Prescriptions Given: PATIENT EDUCATION INFORMATION: Instructions: Smoking Cessation; Chest Pain (Nonspecific) Follow up: With: Address: When: [place] [id number] Business (1) Within 2 to 3 days Comments: Return to ED if symptoms worsen DIAGNOSIS: 1:Chest pain Normal [facility] ED Note-Physicianon 01-12-20 19 ED Note-Physician [...] Nicole Within 2 to 3 days [address] [place] [address]- [employer] (1) Additional Instructions: Return to ED if [...] Lymph Auto: 28 % (01/11/19 16:46:00 EDT) Delta Auto: 7 % (01/11/19 16:46:00 EDT) Eos Auto: 1.9 % (01/11/19 16:46:00 EDT) Basophil Auto: 0.8 % (01/11/19 16:46:00 EDT) Neutro Absolute: 4.9 E9/L (01/11/19 16:46:00 EDT) Lymph Absolute: 2.2 E9/L (01/11/19 16:46:00 EDT) Delta Absolute: 0.6 E9/L (01/11/19 16:46:00 EDT) Eos [...] Results EC01/11/19: SINUS RHYTHM RATE 84, NORMAL [place] AND QRS, NO ST ELEVATION OR DEPRSSION, NORMAL AXIS, NORMAL QTC NORMAL ECG Signed By: Orin Browne DO 01/11/2019 15:54:18 Normal [facility] Comment on above: Result Comment: Elec [...] and skin patches. Some may be available [id number] and others require a prescription. ? Antidepressant [...] Document Reviewed: 08/18/2012 ExitCare? [facility] Information [facility] [facility] [address] [facility]. This information is not intended to [...] Document Reviewed: 12/13/2008 ExitCare? Patient Information ?2015 [employer]. This information is not intended to replace advice given to you by your health care provider. Make sure you discuss any questions you have with your health care provider. Normal [facility] ED Patient Summaryon 019 ED Patient Summary [place] [id number] Patient Discharge Instructions Person Information Name: ARIADNA HALEY Age: 38 Years Arrival Date: 01/11/2019 3:44 PM Discharge Diagnosis: 1:Chest pain Primary Care Physician: Charles Nicole DO Provider Information Primary Provider: Orin Browne DO [employer] Operator:None The exam and treatment you received in the Emergency Department were for an urgent problem and are not intended as complete care. It is important that you follow up with a doctor, nurse practitioner, or physician?s press assistant for ongoing care. If your symptoms [...] Follow-up Instructions: With: Address: When: Charles Nicole [address] [place], [place] [address] Business (1) Within 2 to 3 days [...] opioids can be used to help relieve tjzhdfdt-bc-qsfrmv pain and are often prescribed following a [...] be struggling with addiction, tell your health director of career services and ask for guidance or call [facility] National Helpline at 0-376-519-PXAF. u Source: US Department of Health and Human Services/Center for Disease Control & Prevention [facility] Medications Given: Medication Dose Route No medications found. Medication Information: Medications to Continue with No Changes Other Medications metformin (metformin 500 mg ER Tab) 250 Milligram By Mouth 2 times a day. Comment: Pharmacy Information: Thank you for choosing [facility] Patient Education Materials: Smoking Cessation Quitting [...] and skin patches. Some may be available kwpi-svw-hplizqt and others require a prescription. ? Antidepressant [...] Document Reviewed: 08/18/2012 ExitCare? Patient Information ?2015 qianchengwuyou. This information is not intended to replace [...] Document Reviewed: 12/13/2008 ExitCare? Patient Information ?2015 qianchengwuyou. This information is not intended to replace advice given to you by your health care provider. Make sure you discuss any questions you have with your health care provider. TERA Dorantes NICOLE B , have received the following patient education materials/instruction s and have verbalized understanding: Patient Education Materials: Smoking Cessation; Chest Pain (Nonspecific) Follow-up Instructions: With: Address: When: [place] [address] Business (1) Within 2 to 3 days Comments: Return to ED if symptoms worsen Prescriptions: Patient Signature Date Clinician/Nurse Signature Date 01/11/19 18:42:28 Normal [facility] Progress Note-Nurseon 2018 Progress Note-Nurse Pt explained discharge instructions and voiced understanding. Pt sts she will follow up with her PCP and denies any furthe questions at this time. Normal [facility] Troponin 0 Hr.on 01-11-2019 Troponin I.cardiac [Mass/Vol] ng/mL Normal <=0.03 [facility] Comment on above: Result Comment: New Troponin Assay 10/05/[address] Cutoff value > or = 0.03 ng/mL in conjunction with clinical conditions of myocardial infarction. (www.escardio.org/guidelines) Performed By: #### 1 [id number], 0131155, 9630598, 9458616, 73477508, 7616032, 8670573, 0817606, 3448279, 98019994, 6717816 #### [facility] Laboratory [address] [place] [address] eGFRon 01-11-2019 GFR/1.73 sq M predicted among blacks MDRD (S/P/Bld) [Vol rate/Area] mL/min/{1.73_m2} Normal >=59 [facility] Comment on above: Order Comment: Order added by Discern Expert. Result Comment: eGFR is race adjusted. AA=. Performed By: #### 1 0647380, 0989694, 4531367, 9260669, 67455648, 2013398, 5117186, 6902571, 3293593, 79967121, 1196287 #### [facility] [address] [place] [address] GFR/1.73 sq M predicted among non-blacks MDRD (S/P/Bld) [Vol rate/Area] mL/min/{1.73_m2} Normal >=59 [facility] Comment on above: Order Comment: Order added by Discern Expert. Result Comment: Supervisor [employer] anthony kidney disease could be indicated at eGFR's of less than 60 mL/min/1.73m2. Kidney failure is indicated at less than 15 mL/min/1.73m2. Performed By: #### 1 2961044, 6061124, 8373262, 5425243, 55956701, 5123730, 5180383, 3788539, 3592585, 83460054, 7583291 #### [facility] [address] [place] [address] SPINE, LUMBOSACRAL CMPLT(TOOTIE DING)on 12-05-2018 SPINE, LUMBOSACRAL CMPLT(BENDING) Patient Name: ARIADNA HALEY STUDY: SPINE, LUMBOSACRAL; CMPLT(BENDING); 12/05/2018 1:47 pm INDICATION: LUMBAR XR. COMPARISON: None. ACCESSION NUMBER(S): [id number] ORDERING CLINICIAN: KADE RICHARDSON FINDINGS: No lumbar spine fracture. Scattered small endplate osteophytes. Vertebral body and disc space heights are are maintained. 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 No spondylolisthesis. No instability on flexion or extension. IMPRESSION: Degenerative changes of the lumbar spine without instability. Electronically signed by: EARNESTINE MANUEL MD [facility] Coding Summary.on 09-15-2018 Coding Summary. CODING DATE: 09/15/2018 FINAL [facility] STATUS: Home (Routine DC) PAYOR: Medicaid EAPG [...] F17.210 Nicotine dependence, cigarettes, uncomplicated Z79.899 Other halfway (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 However, the narrative phrase printed from the coding software may appear abbreviated, or result in slightly different terminology. Coded By: Luz Judd Date Saved: 09/15/2018 07:15 am Normal [facility] Auto Diffon 09-14-2018 Basophils/100 WBC (Bld) 0.6 % Normal 0.0-2.0 [facility] Comment on above: Order Comment: Order Added by Discern Expert. Performed By: #### 1 8177835, 3647596, 8792865, 4136036, 15925675, 6392853, 2845745, 6799625, 2844384, 48450560, 5977257 #### [facility] [address] [place] [address] Basophils/Leukocytes Auto (Bld) [Pure # fraction] 0.1 E9/L Normal 0.0-0.2 [facility] Comment on above: Order Comment: Order Added by Discern Expert. Performed By: #### 1 5180982, 5676105, 8274939, 2707524, 30080336, 0674586, 6229926, 5164265, 4287408, 33374804, 6629641 #### [facility] [address] [place] [address] Eosinophils/100 WBC (Bld) 2.2 % Normal 0.0-8.0 [facility] Comment on above: Order Comment: Order Added by Discern Expert. Performed By: #### 1 1966512, 6946405, 8342064, 3483354, 71400494, 4445201, 4282220, 4124230, 9971104, 00455696, 9189827 #### [facility] [address] [place] [address] Eosinophils/Leukocytes Auto (Bld) [Pure # fraction] 0.2 E9/L Normal 0.0-0.5 [facility] Comment on above: Order Comment: Order Added by Discern Expert. Performed By: #### 1 5367029, 1972897, 3814947, 9682846, 63152321, 0359979, 2360417, 6870398, 7419365, 58016791, 2960841 #### [facility] [address] [place] [address] Lymphocytes/100 WBC (Bld) 30.6 % Normal 14.0-50.0 [facility] Comment on above: Order Comment: Order Added by Discern Expert. Performed By: #### 1 3965233, 8567894, 3394731, 2854826, 16405638, 5977386, 7508283, 1822036, 4030131, 12087591, 9355912 #### [facility] [address] [place] [address] Lymphocytes/Leukocytes Auto (Bld) [Pure # fraction] 3.0 E9/L Normal 1.0-4.0 [facility] Comment on above: Order Comment: Order Added by Discern Expert. Performed By: #### 1 8360939, 2656150, 0974735, 7858682, 52137527, 6229621, 9893241, 6519474, 5914324, 76797861, 0516379 #### [facility] [address] [place] [address] Monocytes/100 WBC (Bld) 7.2 % Normal 4.0-14.0 [facility] Comment on above: Order Comment: Order Added by Discern Expert. Performed By: #### 1 4474549, 5447216, 1909255, 1164668, 54368814, 1677867, 0955033, 2574139, 1884924, 39499135, 1806734 #### [facility] [address] [place] [address] Monocytes/Leukocytes Auto (Bld) [Pure # fraction] 0.7 E9/L Normal 0.2-1.0 [facility] Comment on above: Order Comment: Order Added by Discern Expert. Performed By: #### 1 7502916, 3118368, 0312131, 8205166, 49233550, 0313974, 3379856, 7433476, 7368036, 91508267, 1811746 #### [facility] [address] [place] [address] Neutrophils/100 WBC (Bld) 59.4 % Normal 36.0-75.0 [facility] Comment on above: Order Comment: Order Added by Discern Expert. Performed By: #### 1 5639267, 6846954, 1513692, 8958428, 39606711, 8989807, 1269329, 1445365, 2731137, 08440852, 4878923 #### [facility] [address] [place] [address] Neutrophils/Leukocytes Auto (Bld) [Pure # fraction] 5.9 E9/L Normal 2.0-7.5 [facility] Comment on above: Order Comment: Order Added by Discern Expert. Performed By: #### 1 0462354, 9132640, 0033883, 4528246, 47013415, 3711597, 2382905, 5550418, 8625331, 17531048, 6349067 #### [facility] [address] [place] [address] BMPon 09-14-2018 Creatinine [Mass/Vol] 0.6 mg/dL Normal 0.5-1.3 [facility] Comment on above: Performed By: #### 1 5283759, 0911906, 8173687, 9556359, 54363433, 1735482, 6822427, 9879434, 0244127, 51808944, 7038292 #### [facility] [address] [place] [address] Urea nitrogen [Mass/Vol] 15 mg/dL Normal 5-21 [facility] Comment on above: Performed By: #### 1 3406438, 0449922, 8637034, 9294888, 93363060, 7777748, 3511666, 2291758, 2687807, 38880850, 8249720 #### [facility] [address] [place] [address] Urea nitrogen/Creatinine [Mass ratio] 25 No Units High 10-20 [facility] Comment on above: Performed By: #### 1 9113258, 8053587, 8350991, 5848294, 30751593, 9485770, 2821418, 3953238, 9205529, 80608336, 5681292 #### [facility] [address] [place] [address] Anion gap [Moles/Vol] 13 mmol/L Normal 6-16 [facility] Comment on above: Performed By: #### 1 7254286, 0400168, 7716253, 2259346, 20806026, 6449168, 4141261, 2018299, 1612850, 63616988, 9826853 #### [facility] [address] [place] [address] Calcium [Mass/Vol] 9.5 mg/dL Normal 8.9-11.1 [facility] Comment on above: Performed By: #### 1 0141786, 2206362, 4836475, 4655129, 60134758, 3752323, 7978327, 0608466, 0970957, 13434277, 7607084 #### [facility] [address] [place] [address] Chloride [Moles/Vol] 103 mmol/L Normal 101-111 [facility] Comment on above: Performed By: #### 1 1939769, 6603248, 4938688, 2366027, 20656140, 3335710, 8027428, 2142439, 0593658, 15144259, 2667023 #### [facility] [address] [place] [address] CO2 [Moles/Vol] 24 mmol/L Normal 21-31 [facility] Comment on above: Performed By: #### 1 8436716, 7830270, 4682129, 4582708, 80781570, 3439591, 5174708, 1605142, 6723355, 93781130, 2417691 #### [facility] [address] [place] [address] Glucose [Mass/Vol] 102 mg/dL Normal 55-199 [facility] Comment on above: Result Comment: If t his glucose result represents a fasting glucose, interpretation should refer to the following reference range: 55-99 mg/dL Performed By: #### 1 4457592, 5774593, 7535684, 8300240, 13619258, 2890186, 6074365, 2468205, 9666902, 14450195, 4610089 #### [facility] [address] [place] [address] Potassium [Moles/Vol] 3.6 mmol/L Normal 3.5-5.3 [facility] Comment on above: Performed By: #### 1 0533304, 2720066, 5547751, 6171606, 93110940, 7570487, 5199417, 5013191, 9934321, 11155885, 6410332 #### [facility] [address] [place] [address] Sodium [Moles/Vol] 136 mmol/L Normal 135-145 [facility] Comment on above: Performed By: #### 1 3486795, 8126581, 5700773, 8095812, 65835503, 4381540, 7557978, 2441090, 7999460, 31967570, 0551710 #### [facility] [address] [place] [address] CBC w/ Auto Diffon 9 Erythrocyte distribution width (RBC) [Ratio] 14.2 % Normal 10.9-14.2 [facility] Comment on above: Performed By: #### 1 8942474, 3026283, 9926894, 5464934, 41099921, 6615363, 1196507, 8098484, 8142225, 42999750, 1438682 #### [facility] [address] [place] [address] Hematocrit (Bld) [Volume fraction] 39.4 % Normal 34.0-46.0 [facility] Comment on above: Performed By: #### 1 4923937, 0740312, 8822740, 1025945, 04036372, 2582024, 4738152, 5508134, 4444579, 56188928, 0091913 #### [facility] [address] [place] [address] Hemoglobin (Bld) [Mass/Vol] 13.3 g/dL Normal 12.0-16.0 [facility] Comment on above: Performed By: #### 1 9930481, 5469148, 4786132, 4891853, 95028887, 4628638, 6516934, 7332613, 9817082, 07304920, 8970015 #### [facility] [address] [place] [address] MCH (RBC) [Entitic mass] 29.2 pg Normal 27.0-34.0 [facility] Comment on above: Performed By: #### 1 1108754, 1256110, 4533941, 6501229, 09609229, 6071935, 0790827, 8215792, 0173249, 57497330, 8983826 #### [facility] [address] [place] [address] MCHC (RBC) [Mass/Vol] 33.8 g/dL Normal 33.3-35.7 [facility] Comment on above: Performed By: #### 1 4662117, 1221839, 7324582, 8295101, 65479957, 5993873, 6531745, 5624389, 7989936, 05652035, 9415545 #### [facility] [address] [place] [address] MCV (RBC) [Entitic vol] 86.6 fL Normal 80.0-100.0 [facility] Comment on above: Performed By: #### 1 7207049, 3516999, 8265413, 8418854, 27956638, 3154485, 9609438, 2229073, 5332030, 53140141, 1693970 #### [facility] [address] [place] [address] Platelet mean volume (Bld) [Entitic vol] 8.8 fL Normal 6.4-10.8 [facility] Comment on above: Performed By: #### 1 7903857, 0388479, 0995977, 6353064, 52828865, 1158709, 2509953, 6673328, 9521862, 58074995, 5547797 #### [facility] [address] [place] [address] Platelets (Bld) [#/Vol] 307.0 E9/L Normal 150.0-500.0 [facility] Comment on above: Performed By: #### 1 0370086, 1428303, 4877017, 2710024, 14878506, 3902057, 5544869, 4210029, 1936082, 08724740, 8457064 #### [facility] [address] [place] [address] RBC (Bld) [#/Vol] 4.6 E12/L Normal 4.3-5.9 [facility] Comment on above: Performed By: #### 1 3279513, 9047171, 0388145, 7836136, 25684993, 3537350, 0717451, 4618603, 0645687, 59099423, 3979707 #### [facility] [address] [place] [address] WBC corrected for nucl RBC Auto (Bld) [#/Vol] 9.9 E9/L Normal 4.0-11.0 [facility] Comment on above: Performed By: #### 1 0540838, 1346743, 6024412, 2228659, 14577442, 6772213, 1495530, 3208893, 9151890, 57175684, 6294865 #### [facility] [address] [place] [address] [facility] CK [Catalytic activity/Vol] 53 Int._Unit/L Normal 14-261 [facility] Comment on above: Performed By: #### 1 2259756, 8186019, 4043468, 1354938, 07562072, 9397404, 0858622, 2234437, 9068045, 67407389, 3145623 #### [facility] [address] [place] [address] ED Clinical Summaryon 2018 ED Clinical Summary [address] [address] ED Clinical Summary Person Information Name: ARIADNA HALEY [place] Age: 37 Years : 1980 12:00 AM Sex: Female Language: Guinean PCP: Charles Nicole DO Marital Status: Single Phone: [phone] Visit Id: Visit Reason: Anxiety; Paraesthesia; NUMBNESS [...] 09/14/2018 12:17 AM 09/14/2018 12:17 AM ADDRESS: [address] [place] [address] [place] [id number] PHYS DOC NOTES: MEDICAL INFORMATION: Prescriptions Given: Prescription Display gabapentin (gabapentin 100 mg Cap) 100 mg = 1 cap(s), Oral, Daily, X 7 day(s), # 7 cap(s), Refills(s) 0, Pharmacy: [facility] gabapentin (gabapentin 100 mg Cap) 100 mg = 1 cap(s), Oral, Daily, X 7 day(s), # 7 cap(s), Refills(s) 0, Pharmacy: [facility]/pharmacy #6177 magnesium oxide (magnesium oxide 400 mg Tab) 400 mg = 1 tab(s), Oral, Daily, X 7 day(s), # 7 tab(s), Refills(s) 0, Pharmacy: [facility] [place] [facility] magnesium oxide (magnesium oxide 400 mg Tab) 400 mg = 1 tab(s), Oral, Daily, X 7 day(s), # 7 tab(s), Refills(s) 0, Pharmacy: [facility]/pharmacy #6177 Home Meds Display metformin (metformin 500 mg ER Tab) 250 mg, Oral, BID, Refills(s) 0 PATIENT EDUCATION INFORMATION: Instructions: Paresthesia, Otwy-qk-Sgqc; Restless Legs Syndrome Follow up: With: Address: When: Sayda Kelley [address] [address] Business (1) Within 1 to 2 days Comments: neurologist you may also follow up with him With: Address: When: [place] [address] [employer] (1) Within 1 to 2 days Comments: Return to ED if symptoms worsen DIAGNOSIS: 1:Restless leg syndrome Normal [facility] ED Note-Nursingon 09-14-2018 ED Note-Nursing Pt up to RR, gait steady. Normal [facility] ED Note-Nursing Aware of need for urine specimen, denies urge at present, states will notify when able to produce sample, will monitor. Normal [facility] ED Note-Physicianon 09-15-19 19 ED Note-Physician [...] day(s), # 7 cap(s), Refills(s) 0, Pharmacy: [facility]/pharmacy #6177 magnesium oxide, 400 mg = 1 tab(s), Oral, Daily, X 7 day(s), # 7 tab(s), Refills(s) 0, Pharmacy: [facility]/pharmacy #6177 Sodium Chloride 0.9% intravenous solution [...] Sayda Kelley Within 1 to [address] [address]- Business (1) Additional Instructions: neurologist you may also follow up with him Charles Nicole Within 1 to 2 days [address] [place] [address]- Business (1) Additional Instructions: Return to ED if symptoms worsen Patient Education Paresthesia, Lmpm-zm-Sllv Restless Legs Syndrome Problem List/Past Medical History [...] Lymph Auto: 30.6 % (09/13/18 23:03:00 EDT) Delta Auto: 7.2 % (09/13/18 23:03:00 EDT) Eos Auto: 2.2 % (09/13/18 23:03:00 EDT) Basophil Auto: 0.6 % (09/13/18 23:03:00 EDT) Neutro Absolute: 5.9 E9/L (09/13/18 23:03:00 EDT) Lymph Absolute: 3 E9/L (09/13/18 23:03:00 EDT) Delta Absolute: 0.7 E9/L (09/13/18 23:03:00 EDT) Eos [...] Results No qualifying data available. Normal [facility] Comment on above: Result Comment: Elec [...] Document Reviewed: 01/29/2012 ExitCare? Patient Information ?2015 [employer]. This information is not intended to replace [...] ? Drawing. ? Crawling. ? Worming. ? Kelly. ? Tingling. ? Pins and needles. ? [...] Document Reviewed: 08/06/2011 ExitCare? Patient Information ?2015 [employer]. This information is not intended to replace advice given to you by your health care provider. Make sure you discuss any questions you have with your health care provider. Normal [facility] ED Patient Summaryon 019 ED Patient Summary [place] [id number] Patient Discharge Instructions Person Information Name: ARIADNA HALEY Age: 37 Years Arrival Date: 09/13/2018 10:16 PM Discharge Diagnosis: 1:Restless leg syndrome Primary Care Physician: Charles Nicole DO Provider Information Primary Provider: Génesis Lozoya DO [employer] Operator:None The exam and treatment you received in the Emergency Department were for an urgent problem and are not intended as complete care. It is important that you follow up with a doctor, nurse practitioner, or physician?s press assistant for ongoing care. If your symptoms [...] Follow-up Instructions: With: Address: When: Sayda Kelley [facility], [address] [place] [address] Business (1) Within 1 to 2 days Comments: neurologist you may also follow up with him With: Address: When: Charles Nicole [address] [place] [address] Business (1) Within 1 to 2 days Comments: Return to ED if symptoms worsen In the event that this physician does not participate in your insurance network, please consult with your insurance company to find a nearby participating provider. Patient Education Materials: Paresthesia, Idup-lu-Iplz; Restless Legs Syndrome A MESSAGE TO ALL PATIENTS REGARDING OPIOIDS PRESCRIPTION OPIOIDS: WHAT YOU NEED TO KNOW Prescription opioids can be used to help relieve hhvsprqv-my-lypkqh pain and are often prescribed following a [...] be struggling with addiction, tell your health director of career services and ask for guidance or call [employer]?S National Helpline at 5-816-278-HELP. v Source: US Department of Health and Human Services/Center for Disease Control & Prevention [facility] Medications Given: Medication Dose Route Sodium Chloride 0.9% intravenous solution 1000.00 mL Initial Volume 1000.00 mL/hr IV Piggyback Left Mid Forearm Medication Information: New Medications [id number], [address], [place] [id number], [phone] gabapentin (gabapentin 100 mg Cap) 1 Capsules By Mouth every day for 7 Days. Refills: 0. magnesium oxide (magnesium oxide 400 mg Tab) 1 Tabs By Mouth every day for 7 Days. Refills: 0. [facility], [address] [place], [place] [id number], [phone] gabapentin (gabapentin 100 mg Cap) 1 Capsules By Mouth every day for 7 Days. Refills: 0. magnesium oxide (magnesium oxide 400 mg Tab) 1 Tabs By Mouth every day for 7 Days. Refills: 0. Medications to Continue with No Changes Other Medications metformin (metformin 500 mg ER Tab) 250 Milligram By Mouth 2 times a day. Comment: Pharmacy Information: Thank you for choosing [facility] Patient Education Materials: Paresthesia Paresthesia is [...] Document Reviewed: 01/29/2012 ExitCare? Patient Information ?2014 qianchengwuyou. This information is not intended to replace [...] ? Drawing. ? Crawling. ? Worming. ? Kelly. ? Tingling. ? Pins and needles. ? [...] Document Reviewed: 08/06/2011 ExitCare? Patient Information ?2014 qianchengwuyou. This information is not intended to replace advice given to you by your health care provider. Make sure you discuss any questions you have with your health care provider. TERA Dorantes NICOLE B , have received the following patient education materials/instruction s and have verbalized understanding: Patient Education Materials: Paresthesia, Dgjf-rf-Zmce; Restless Legs Syndrome Follow-up Instructions: With: Address: When: Sayda Kelley [address] [address] Business (1) Within 1 to 2 days Comments: neurologist you may also follow up with him With: Address: When: [address] [address] [employer] (1) Within 1 to 2 days Comments: Return to ED if symptoms worsen Prescriptions: [gabapentin (gabapentin 100 mg Cap)] [gabapentin (gabapentin 100 mg Cap)] [magnesium oxide (magnesium oxide 400 mg Tab)] [magnesium oxide (magnesium oxide 400 mg Tab)] Patient Signature Date Clinician/Nurse Signature Date 09/14/18 00:21:38 Normal [facility] Hep Fun Panelon 09-14-2018 Bilirubin.direct [Mass/Vol] [facility] Abnormal 0.1-0.9 [facility] Comment on above: Result Comment: Resu lt verified by Discern Rule. Performed result [facility] (Unable to Calculate) was sent as an Alpha code due the inability to calculate a valid numeric value. Performed By: #### 1 5954459, 0224604, 3045431, 4028779, 80984968, 6208551, 0629790, 9989927, 0811663, 58850627, 5341458 #### [facility] [address] [place] [address] Albumin [Mass/Vol] 1.1 g/dL Normal 1.1-2.2 [facility] Comment on above: Performed By: #### 1 9305420, 0148725, 9955620, 5725171, 83789346, 3169481, 4260735, 9519670, 7813221, 62160339, 7256085 #### [facility] [address] [place] [address] Albumin [Mass/Vol] 4.1 g/dL Normal 3.3-5.0 [facility] Comment on above: Performed By: #### 1 [id number], 4664119, 1639791, 3069946, 72104829, 8428543, 6281672, 0626808, 5575738, 26030424, 0148595 #### [facility] [address] [place] [address] ALP [Catalytic activity/Vol] 69 Int._Unit/L Normal 21-98 [facility] Comment on above: Performed By: #### 1 6146692, 8923073, 2795796, 5204643, 23814181, 4558690, 5928348, 0736747, 7527445, 22563590, 8068314 #### [facility] [address] [place] [address] ALT No additional P-5'-P [Catalytic activity/Vol] 27 Int._Unit/L Normal 6-46 [facility] Comment on above: Performed By: #### 1 3714902, 9788828, 0750825, 6408344, 04990903, 2886468, 6694144, 1167193, 8050191, 81114428, 6692314 #### [facility] [address] [place] [address] AST [Catalytic activity/Vol] 16 Int._Unit/L Normal 5-43 [facility] Comment on above: Performed By: #### 1 9829547, 3968857, 1551195, 7998633, 50650333, 0777559, 0718842, 9370328, 6706769, 11155421, 8504791 #### [facility] [address] [place] [address] Bilirubin [Mass/Vol] 0.5 mg/dL Normal 0.0-1.1 [facility] Comment on above: Performed By: #### 1 7473923, 6379154, 0006730, 6167235, 39993922, 3448159, 6395711, 4513377, 6146813, 61454687, 1448472 #### [facility] [address] [place] [address] Bilirubin.direct [Mass/Vol] mg/dL Normal 0.1-0.4 [facility] Comment on above: Performed By: #### 1 3376990, 3261263, 6357193, 2154897, 60655621, 8665697, 8092665, 1913902, 2529489, 09794142, 6270981 #### [facility] [address] [place] [address] Globulin (S) [Mass/Vol] 3.7 g/dL Normal 1.4-4.0 [facility] Comment on above: Performed By: #### 1 9205195, 9335802, 8615858, 7059965, 11526687, 5590598, 3241804, 9149970, 3369062, 62062373, 9420825 #### [facility] [address] [place] [address] Protein [Mass/Vol] 7.8 g/dL Normal 6.0-7.8 [facility] Comment on above: Performed By: #### 1 7805704, 8900487, 6388458, 0578104, 07964836, 4441710, 5176487, 7147198, 8192441, 29097946, 8413489 #### [facility] [address] [place] [address] Magnesiumon 09-14-2018 Magnesium [Mass/Vol] 1.9 mg/dL Normal 1.3-2.4 [facility] Comment on above: Performed By: #### 1 1521343, 4976555, 0693043, 8874523, 43085463, 8322992, 0913089, 2530832, 0909506, 46542690, 9481956 #### [facility] [address] [place] [address] Myoglobinon 09-14-2018 Myoglobin [Mass/Vol] 9 ng/mL Normal <=69 [facility] Comment on above: Performed By: #### 1 1714212, 2340704, 7525137, 1326885, 73250472, 4751216, 8374028, 4545570, 5110931, 45757561, 2510469 #### [facility] [address] [place] [address] PT & PTTon 09-14-2018 aPTT Coag (PPP) [Time] 34.5 second(s) Normal 25.1-36.5 [facility] Comment on above: Result Comment: Hepa rin therapeutic range (represented by Anti-Factor Xa activity of 0.2 - 0.4 U/mL) corresponds to PTT of 56.6 - 109.0 sec. Performed By: #### 1 3378126, 9715306, 5464536, 6334946, 82760337, 0812715, 3704963, 5635940, 6116888, 57807420, 6397148 #### [facility] [address] [place] [address] INR Coag (PPP) [Relative time] 1.0 {INR} [facility] Comment on above: Result Comment: INR results are specifically intended to assess patients stabilized on long-term Anticoagulation therapy suggested INR?s ?Less Intensive Anticoagulation? 2.0 ? 3.0 Conventional Range 3.0 ? 4.5 Performed By: #### 1 6455994, 6698556, 0126494, 0332871, 56404388, 9502656, 2461652, 9014916, 9616469, 11641652, 5657996 #### [facility] [address] [place] [address] PT Coag (PPP) [Time] 11.2 second(s) Normal 10.2-12.9 [facility] Comment on above: Performed By: #### 1 5684716, 3462747, 7309124, 7725110, 48510789, 8743542, 0256295, 3003531, 0107922, 03714901, 0677846 #### [facility] [address] [place] [address] Phosphoruson 09-14-2018 Phosphate [Mass/Vol] 3.8 mg/dL Normal 1.9-4.6 [facility] Comment on above: Performed By: #### 1 9233913, 9188455, 3540124, 4236378, 50085881, 9521075, 8831693, 3514832, 0575218, 21178704, 2913572 #### [facility] [address] [place] [address] Troponin 0 Hr.on 09-14-2018 Troponin I.cardiac [Mass/Vol] ng/mL Normal <=0.03 [facility] Comment on above: Result Comment: New Troponin Assay 10/05/[address] Cutoff value > or = 0.03 ng/mL in conjunction with clinical conditions of myocardial infarction. ([email or web address]) Performed By: #### 1 8786191, 5657132, 3156466, 2506851, 65393475, 8389704, 2453655, 0550173, 8527026, 23032077, 9327255 #### [facility] [address] [place] [address] UA With Cult Reflexon 2018 Bacteria LM Ql (Urine sed) TRACE Normal Trace [facility] Comment on above: Performed By: #### 1 3673540, 7271687, 7001932, 6156905, 66921713, 8611626, 5500984, 7789075, 6731669, 57776252, 3690004 #### [facility] [address] [place] [address] Bilirubin Ql (U) Negative Normal Negative [facility] Comment on above: Performed By: #### 1 2664153, 4721360, 7617906, 9955103, 66654009, 4209891, 7553713, 6561405, 3223642, 60828678, 8801535 #### [facility] [address] [place] [address] Clarity (U) CLEAR Normal Clear [facility] Comment on above: Performed By: #### 1 0074086, 5606090, 5377675, 6126198, 77039612, 9451755, 1433439, 5525548, 3595625, 17287230, 1924886 #### [facility] [address] [place] [address] Color (U) YELLOW Normal Yellow [facility] Comment on above: Performed By: #### 1 7640277, 4016351, 8298042, 9054317, 62258917, 0024472, 8550810, 3252672, 9849251, 90016630, 2037632 #### [facility] [address] [place] [address] Epithelial cells.squamous LM.HPF (Urine sed) [#/Area] 0-2 Normal 0-2 [facility] Comment on above: Performed By: #### 1 9258788, 1558101, 2592745, 9351482, 38585588, 5951445, 0871997, 8528199, 3928086, 29087463, 9169298 #### [facility] [address] [place] [address] Glucose Test strip (U) [Mass/Vol] Negative Normal Negative [facility] Comment on above: Performed By: #### 1 1834713, 3038721, 5101601, 6332187, 59319023, 4014704, 7759822, 7996087, 2855559, 02029026, 4401252 #### [facility] [address] [place] [address] Hemoglobin Ql (U) Negative Normal Negative [facility] Comment on above: Performed By: #### 1 4292568, 1936857, 7826375, 3900653, 10048403, 1366804, 8629625, 4490011, 4379983, 49613809, 9760939 #### [facility] [address] [place] [address] Ketones (U) [Mass/Vol] Negative Normal Negative [facility] Comment on above: Performed By: #### 1 5792923, 7281644, 2659794, 8557300, 28860507, 8154455, 2244343, 7030396, 6954687, 97324792, 2368529 #### [facility] [address] [place] [address] [place].plasma/[place] .RBC (Bld) [Mass ratio] 0-3 Normal 0-3 [facility] Comment on above: Performed By: #### 1 7276922, 7439862, 7664028, 1831958, 51557687, 4760158, 4948134, 7614737, 8408492, 06506577, 3147840 #### [facility] [address] [place] [address] Mucus Ql (Urine sed) TRACE Normal [facility] Comment on above: Performed By: #### 1 2984464, 7627550, 7215037, 6255346, 11098447, 9084199, 5529615, 8227756, 9852063, 17067140, 9192286 #### [facility] [address] [place] [address] Nitrite Ql (U) Negative Normal Negative [facility] Comment on above: Performed By: #### 1 4271725, 4516546, 0490855, 7601993, 91278224, 0970091, 1975142, 6216033, 1657313, 30185531, 1372981 #### [facility] [address] [place] [address] pH (U) 6.0 [pH] 5.0-9.0 [facility] Comment on above: Performed By: #### 1 1269441, 2672430, 8648800, 8109858, 96284564, 7512267, 6833561, 5288923, 8624889, 60011498, 4547109 #### [facility] [address] [place] [address] Protein (U) [Mass/Vol] Negative Normal Negative [facility] Comment on above: Performed By: #### 1 3903519, 3416448, 9466127, 9463278, 96620852, 1176920, 2589092, 1915846, 7891334, 35501750, 2511626 #### [facility] [address] [place] [address] Specific gravity (U) [Rel density] 1.010 1.005-1.030 [facility] Comment on above: Performed By: #### 1 3119345, 9423910, 6189933, 8581068, 20211873, 7903522, 5224147, 1523175, 2616418, 01378284, 2384948 #### [facility] [address] [place] [address] UA Spec Desc Clean Catch Normal [facility] Comment on above: Performed By: #### 1 5963323, 0400025, 2933386, 3831426, 84050855, 4128989, 5361614, 9487172, 6464965, 60463762, 2145424 #### [facility] [address] [place] [address] Urobilinogen Qn (U) 0.2 {Carmella'U}/dL Normal 0.0-1.0 [facility] Comment on above: Performed By: #### 1 8644415, 5506023, 3487824, 6368132, 62189673, 0017768, 2508941, 8542794, 9846620, 65814008, 0939581 #### [facility] [address] [place] [address] WBC Auto Ql (U) Negative Normal Negative [facility] Comment on above: Performed By: #### 1 7699768, 0274831, 4611024, 1406084, 46767304, 4910443, 5365467, 0464376, 7015472, 26972499, 7931114 #### [facility] [address] [place] [address] WBC LM.HPF (Urine sed) [#/Area] 0-5 Normal 0-5 [facility] Comment on above: Performed By: #### 1 0633835, 6750448, 5063216, 4978808, 13671571, 3651074, 5079474, 3506426, 9659898, 17863647, 5270152 #### [facility] [address] [place] [address] XR Chest Single Viewon 09-14 XR Chest [...] M.D. Transcribed by: minoo Technologist: AP Normal [facility] XR FOOT LEFT (MIN 3 VIEWS)on 09-14-2018 XR FOOT LEFT (MIN 3 VIEWS) Radiology exam is complete. No Radiologist dictation. Please follow up with ordering provider. Final result Normal [facility] XR FOOT RIGHT (MIN 3 VIEWS)o n 04-24-2019 XR FOOT RIGHT (MIN 3 VIEWS) Radiology exam is complete. No Radiologist dictation. Please follow up with ordering provider. Final result Normal [facility] eGFRon 09-14-2018 GFR/1.73 sq M predicted among blacks MDRD (S/P/Bld) [Vol rate/Area] mL/min/{1.73_m2} Normal >=59 [facility] Comment on above: Order Comment: Order added by Discern Expert. Result Comment: eGFR is race adjusted. AA=. Performed By: #### 1 0819456, 4626904, 5929624, 1375625, 80123079, 5221300, 2498703, 9005343, 8403197, 39203617, 6136416 #### [facility] [address] [place] [address] GFR/1.73 sq M predicted among non-blacks MDRD (S/P/Bld) [Vol rate/Area] mL/min/{1.73_m2} Normal >=59 [facility] Comment on above: Order Comment: Order added by Discern Expert. Result Comment: Supervisor [employer] anthony kidney disease could be indicated at eGFR's of less than 60 mL/min/1.73m2. Kidney failure is indicated at less than 15 mL/min/1.73m2. Performed By: #### 1 1140024, 8045512, 2581090, 8066936, 59576317, 1668309, 2923497, 4802218, 5336337, 85514946, 5132393 #### [facility] [address] [place] [address] Vital Signs Date Time Vital Sign Value Performing Clinician Facility 02-14-2025 09:42-0400 Body height 170.18 cm Gay Enciso CORRUGATOR OPERATOR HELPER-C Work Phone: [facility] 02-14-2025 09:42-0400 Diastolic blood pressure 76 mm[Hg] Gay Enciso CORRUGATOR OPERATOR HELPER-C Work Phone: [facility] 02-14-2025 09:42-0400 Heart rate 65 /min Gay Enciso CORRUGATOR OPERATOR HELPER-C Work Phone: [facility] 02-14-2025 09:42-0400 SaO2% (BldA) [Mass fraction] 97 % Gay Britt CORRUGATOR OPERATOR HELPER-C Work Phone: [facility] 02-14-2025 09:42-0400 Systolic blood pressure 118 mm[Hg] Gay Britt CORRUGATOR OPERATOR HELPER-C Work Phone: [facility] 01-31-2025 11:40-0400 Diastolic blood pressure 80 mm[Hg] Gay Britt CORRUGATOR OPERATOR HELPER-C Work Phone: [facility] 01-31-2025 11:40-0400 Heart rate 86 /min Gay Britt CORRUGATOR OPERATOR HELPER-C Work Phone: [facility] 01-31-2025 11:40-0400 Respiratory rate 18 /min Gay Britt CORRUGATOR OPERATOR HELPER-C Work Phone: [facility] 01-31-2025 11:40-0400 SaO2% (BldA) [Mass fraction] 94 % Gay Britt CORRUGATOR OPERATOR HELPER-C Work Phone: [facility] 01-31-2025 11:40-0400 Systolic blood pressure 116 mm[Hg] Gay Britt CORRUGATOR OPERATOR HELPER-C Work Phone: [facility] 01-31-2025 10:11-0400 Body height 170.18 cm Gay Britt CORRUGATOR OPERATOR HELPER-C Work Phone: [facility] 01-31-2025 10:11-0400 Body weight 127 kg Gay Britt CORRUGATOR OPERATOR HELPER-C Work Phone: [facility] 01-24-2025 14:20-0400 Diastolic blood pressure 68 mm[Hg] Chair Roark Work Phone: [facility] 01-24-2025 14:20-0400 Heart rate 82 /min Chair Roark Work Phone: [facility] 01-24-2025 14:20-0400 Respiratory rate 18 /min Chair Roark Work Phone: [facility] 01-24-2025 14:20-0400 SaO2% (BldA) [Mass fraction] 98 % Chair Roark Work Phone: [facility] 01-24-2025 14:20-0400 Systolic blood pressure 111 mm[Hg] Chair Roark Work Phone: [facility] 01-24-2025 10:42-0400 Body temperature 97.81 [degF] Chair Roark Work Phone: [facility] 01-17-2025 10:38-0400 Body height 170.18 cm Gay Johnmer CORRUGATOR OPERATOR HELPER-C Work Phone: [facility] 01-17-2025 10:38-0400 Diastolic blood pressure 62 mm[Hg] Gay Johnmer CORRUGATOR OPERATOR HELPER-C Work Phone: [facility] 01-17-2025 10:38-0400 Heart rate 92 /min Gayomer Johnmer CORRUGATOR OPERATOR HELPER-C Work Phone: [facility] 01-17-2025 10:38-0400 SaO2% (BldA) [Mass fraction] 96 % Gayomer Johnmer CORRUGATOR OPERATOR HELPER-C Work Phone: [facility] 01-17-2025 10:38-0400 Systolic blood pressure 108 mm[Hg] Gay Johnmer CORRUGATOR OPERATOR HELPER-C Work Phone: [facility] 01-11-2025 13:51-0400 Body temperature 98.29 [degF] Chair Roark Work Phone: [facility] 01-11-2025 13:51-0400 Diastolic blood pressure 91 mm[Hg] Chair Gabbi Work Phone: [facility] 01-11-2025 13:51-0400 Heart rate 76 /min Chair Roark Work Phone: [facility] 01-11-2025 13:51-0400 Respiratory rate 20 /min Chair Roark Work Phone: [facility] 01-11-2025 13:51-0400 SaO2% (BldA) [Mass fraction] 98 % Chair Gabbi Work Phone: [facility] 01-11-2025 13:51-0400 Systolic blood pressure 146 mm[Hg] Chair Roark Work Phone: [facility] 12-14-2024 14:10-0400 Diastolic blood pressure 71 mm[Hg] Chair Roark Work Phone: [facility] 12-14-2024 14:10-0400 Heart rate 83 /min Chair Gabbi Work Phone: [facility] 12-14-2024 14:10-0400 Respiratory rate 18 /min Chair Gabbi Work Phone: [facility] 12-14-2024 14:10-0400 SaO2% (BldA) [Mass fraction] 96 % Chair Roark Work Phone: [facility] 12-14-2024 14:10-0400 Systolic blood pressure 128 mm[Hg] Chair Gabbi Work Phone: [facility] 12-12-2024 10:45-0400 Body height 170.18 cm Gayomer Johnmer CORRUGATOR OPERATOR HELPER-C Work Phone: [facility] 12-12-2024 10:45-0400 Body mass index (BMI) [Ratio] 44.8 kg/m2 Gay Britt CORRUGATOR OPERATOR HELPER-C Work Phone: [facility] 12-12-2024 10:45-0400 Body weight 129.72 kg Gay Johnmer CORRUGATOR OPERATOR HELPER-C Work Phone: [facility] 12-12-2024 10:45-0400 Diastolic blood pressure 71 mm[Hg] Gayomer Johnmer CORRUGATOR OPERATOR HELPER-C Work Phone: [facility] 12-12-2024 10:45-0400 Heart rate 63 /min Gayomer Johnmer CORRUGATOR OPERATOR HELPER-C Work Phone: [facility] 12-12-2024 10:45-0400 Systolic blood pressure 109 mm[Hg] Gay Johnmer CORRUGATOR OPERATOR HELPER-C Work Phone: [facility] 11-30-2024 09:08-0400 Diastolic blood pressure 84 mm[Hg] Gay Enciso CORRUGATOR OPERATOR HELPER-C Work Phone: [facility] 11-30-2024 09:08-0400 Heart rate 64 /min Gay Enciso CORRUGATOR OPERATOR HELPER-C Work Phone: [facility] 11-30-2024 09:08-0400 SaO2% (BldA) [Mass fraction] 98 % Gay Enciso CORRUGATOR OPERATOR HELPER-C Work Phone: [facility] 11-30-2024 09:08-0400 Systolic blood pressure 120 mm[Hg] Gay Enciso CORRUGATOR OPERATOR HELPER-C Work Phone: [facility] 11-29-2024 14:46-0400 Body temperature 97.81 [degF] Chair Gabbi Work Phone: [facility] 11-29-2024 14:46-0400 Diastolic blood pressure 73 mm[Hg] Chair Roark Work Phone: [facility] 11-29-2024 14:46-0400 Heart rate 77 /min Chair Roark Work Phone: [facility] 11-29-2024 14:46-0400 Respiratory rate 18 /min Chair Roark Work Phone: [facility] 11-29-2024 14:46-0400 SaO2% (BldA) [Mass fraction] 98 % Chair Roark Work Phone: [facility] Comment on above: 11-29-2024 14:46-0400 Systolic blood pressure 122 mm[Hg] Chair Roark Work Phone: [facility] 11-29-2024 09:13-0400 Body height 170.2 cm Vaibhav Carvalho APRN.SPEECH THERAPY DIRECTOR Work Phone: [facility] 11-29-2024 09:13-0400 Body mass index (BMI) [Ratio] 45.12 kg/m2 Vaibhav Carvalho APRN.SPEECH THERAPY DIRECTOR Work Phone: [facility] 11-29-2024 09:13-0400 Body temperature 97.5 [degF] Vaibhav Deven WAREHOUSE DISTRIBUTION SPECIALIST.SPEECH THERAPY DIRECTOR Work Phone: [facility] 11-29-2024 09:13-0400 Body weight 130.7 kg Vaibhav Deven WAREHOUSE DISTRIBUTION SPECIALIST.SPEECH THERAPY DIRECTOR Work Phone: [facility] 11-29-2024 09:13-0400 Diastolic blood pressure 57 mm[Hg] Vaibhav Deven WAREHOUSE DISTRIBUTION SPECIALIST.SPEECH THERAPY DIRECTOR Work Phone: [facility] 11-29-2024 09:13-0400 Heart rate 88 /min Vaibhav Deven WAREHOUSE DISTRIBUTION SPECIALIST.SPEECH THERAPY DIRECTOR Work Phone: [facility] 11-29-2024 09:13-0400 Respiratory rate 18 /min Vaibhav Deven WAREHOUSE DISTRIBUTION SPECIALIST.SPEECH THERAPY DIRECTOR Work Phone: [facility] 11-29-2024 09:13-0400 SaO2% (BldA) [Mass fraction] 98 % Vaibhav Deven WAREHOUSE DISTRIBUTION SPECIALIST.SPEECH THERAPY DIRECTOR Work Phone: [facility] 11-29-2024 09:13-0400 Systolic blood pressure 113 mm[Hg] Vaibhav Deven WAREHOUSE DISTRIBUTION SPECIALIST.SPEECH THERAPY DIRECTOR Work Phone: [facility] 11-16-2024 13:47-0400 Body temperature 98.01 [degF] Chair Roark Work Phone: [facility] 11-16-2024 13:47-0400 Diastolic blood pressure 70 mm[Hg] Chair Roark Work Phone: [facility] 11-16-2024 13:47-0400 Heart rate 89 /min Chair Gabbi Work Phone: [facility] 11-16-2024 13:47-0400 Respiratory rate 20 /min Chair Roark Work Phone: [facility] 11-16-2024 13:47-0400 SaO2% (BldA) [Mass fraction] 97 % Chair Roark Work Phone: [facility] 11-16-2024 13:47-0400 Systolic blood pressure 101 mm[Hg] Chair Gabbi Work Phone: [facility] 11-13-2024 11:17-0400 Body height 170.18 cm Gay Enciso CORRUGATOR OPERATOR HELPER-C Work Phone: [facility] 11-13-2024 11:17-0400 Body mass index (BMI) [Ratio] 44.1 kg/m2 Gay Johnmer CORRUGATOR OPERATOR HELPER-C Work Phone: [facility] 11-13-2024 11:17-0400 Body weight 127.91 kg Gay Enciso CORRUGATOR OPERATOR HELPER-C Work Phone: [facility] 11-13-2024 11:17-0400 Diastolic blood pressure 78 mm[Hg] Gay Enciso CORRUGATOR OPERATOR HELPER-C Work Phone: [facility] 11-13-2024 11:17-0400 Heart rate 96 /min Gay Enciso CORRUGATOR OPERATOR HELPER-C Work Phone: [facility] 11-13-2024 11:17-0400 Systolic blood pressure 104 mm[Hg] Gay Johnmer CORRUGATOR OPERATOR HELPER-C Work Phone: [facility] 10-31-2024 14:46-0400 Diastolic blood pressure 76 mm[Hg] Chair Gabbi Work Phone: [facility] 10-31-2024 14:46-0400 Heart rate 68 /min Chair Roark Work Phone: [facility] 10-31-2024 14:46-0400 Respiratory rate 20 /min Chair Roark Work Phone: [facility] 10-31-2024 14:46-0400 SaO2% (BldA) [Mass fraction] 94 % Chair Roark Work Phone: [facility] Comment on above: 10-31-2024 14:46-0400 Systolic blood pressure 133 mm[Hg] Chair Roark Work Phone: [facility] 10-31-2024 09:19-0400 Body temperature 97.81 [degF] Chair Roark Work Phone: [facility] 2024 14:16-0400 Body mass index (BMI) [Ratio] 44.01 kg/m2 Chair Gabbi Work Phone: [facility] 2024 14:16-0400 Body temperature 97.59 [degF] Chair Gabbi Work Phone: [facility] 2024 14:16-0400 Body weight 127.5 kg Chair Gabbi Work Phone: [facility] 2024 14:16-0400 Diastolic blood pressure 78 mm[Hg] Chair Roark Work Phone: [facility] 2024 14:16-0400 Heart rate 85 /min Chair Roark Work Phone: [facility] 2024 14:16-0400 Respiratory rate 16 /min Chair Gabbi Work Phone: [facility] 2024 14:16-0400 SaO2% (BldA) [Mass fraction] 96 % Chair Roark Work Phone: [facility] 2024 14:16-0400 Systolic blood pressure 113 mm[Hg] Chair Roark Work Phone: [facility] 10-02-2024 14:15-0400 Body temperature 98.29 [degF] Chair Roark Work Phone: [facility] 10-02-2024 14:15-0400 Diastolic blood pressure 80 mm[Hg] Chair Roark Work Phone: [facility] 10-02-2024 14:15-0400 Heart rate 76 /min Chair Roark Work Phone: [facility] 10-02-2024 14:15-0400 Respiratory rate 16 /min Chair Roark Work Phone: [facility] 10-02-2024 14:15-0400 SaO2% (BldA) [Mass fraction] 97 % Chair Gabbi Work Phone: [facility] 10-02-2024 14:15-0400 Systolic blood pressure 129 mm[Hg] Chair Gabbi Work Phone: [facility] 09-18-2024 13:20-0400 Body temperature 97.59 [degF] Chair Roark Work Phone: [facility] 09-18-2024 13:20-0400 Diastolic blood pressure 84 mm[Hg] Chair Gabbi Work Phone: [facility] 09-18-2024 13:20-0400 Heart rate 107 /min Chair Roark Work Phone: [facility] 09-18-2024 13:20-0400 Respiratory rate 18 /min Chair Roark Work Phone: [facility] 09-18-2024 13:20-0400 SaO2% (BldA) [Mass fraction] 97 % Chair Gabbi Work Phone: [facility] 09-18-2024 13:20-0400 Systolic blood pressure 115 mm[Hg] Chair Roark Work Phone: [facility] 09-06-2024 16:17-0400 Heart rate 90 /min Gay Enciso CORRUGATOR OPERATOR HELPER-C Work Phone: [facility] 09-06-2024 16:17-0400 SaO2% (BldA) [Mass fraction] 97 % Gay Enciso CORRUGATOR OPERATOR HELPER-C Work Phone: [facility] 09-06-2024 13:54-0400 Diastolic blood pressure 69 mm[Hg] Chair Gabbi Work Phone: [facility] 09-06-2024 13:54-0400 Heart rate 90 /min Chair Roark Work Phone: [facility] 09-06-2024 13:54-0400 Respiratory rate 18 /min Chair Roark Work Phone: [facility] 09-06-2024 13:54-0400 SaO2% (BldA) [Mass fraction] 97 % Chair Gabbi Work Phone: [facility] 09-06-2024 13:54-0400 Systolic blood pressure 110 mm[Hg] Chair Gabbi Work Phone: [facility] 09-06-2024 08:43-0400 Body height 170.2 cm Vaibhav Deven WAREHOUSE DISTRIBUTION SPECIALIST.SPEECH THERAPY DIRECTOR Work Phone: [facility] 09-06-2024 08:43-0400 Body mass index (BMI) [Ratio] 45.5 kg/m2 Vaibhav Deven WAREHOUSE DISTRIBUTION SPECIALIST.SPEECH THERAPY DIRECTOR Work Phone: [facility] 09-06-2024 08:43-0400 Body temperature 97.5 [degF] Vaibhav Deven WAREHOUSE DISTRIBUTION SPECIALIST.SPEECH THERAPY DIRECTOR Work Phone: [facility] 09-06-2024 08:43-0400 Body weight 131.8 kg Vaibhav Deven WAREHOUSE DISTRIBUTION SPECIALIST.SPEECH THERAPY DIRECTOR Work Phone: [facility] 09-06-2024 08:43-0400 Diastolic blood pressure 64 mm[Hg] Vaibhav Deven WAREHOUSE DISTRIBUTION SPECIALIST.SPEECH THERAPY DIRECTOR Work Phone: [facility] 09-06-2024 08:43-0400 Heart rate 77 /min Vaibhav Deven WAREHOUSE DISTRIBUTION SPECIALIST.SPEECH THERAPY DIRECTOR Work Phone: [facility] 09-06-2024 08:43-0400 Respiratory rate 18 /min Vaibhav Deven WAREHOUSE DISTRIBUTION SPECIALIST.SPEECH THERAPY DIRECTOR Work Phone: [facility] 09-06-2024 08:43-0400 SaO2% (BldA) [Mass fraction] 97 % Vaibhav Deven WAREHOUSE DISTRIBUTION SPECIALIST.SPEECH THERAPY DIRECTOR Work Phone: [facility] 09-06-2024 08:43-0400 Systolic blood pressure 116 mm[Hg] Vaibhav Deven WAREHOUSE DISTRIBUTION SPECIALIST.SPEECH THERAPY DIRECTOR Work Phone: [facility] 09-04-2024 15:04-0400 Body height 170.2 cm Gordo Barfield MD Work Phone: [facility] 09-04-2024 15:04-0400 Body mass index (BMI) [Ratio] 44.32 kg/m2 Gordo Barfield MD Work Phone: [facility] 09-04-2024 15:04-0400 Body weight 128.37 kg Gordo Barfield MD Work Phone: [facility] 09-04-2024 15:04-0400 Diastolic blood pressure 73 mm[Hg] Gordo Barfield MD Work Phone: [facility] 09-04-2024 15:04-0400 Heart rate 101 /min Gordo Barfield MD Work Phone: [facility] 09-04-2024 15:04-0400 Systolic blood pressure 112 mm[Hg] Gordo Barfield MD Work Phone: [facility] 08-08-2024 14:36-0400 Diastolic blood pressure 87 mm[Hg] Chair Roark Work Phone: [facility] 08-08-2024 14:36-0400 Heart rate 83 /min Chair Roark Work Phone: [facility] 08-08-2024 14:36-0400 Respiratory rate 18 /min Chair Roark Work Phone: [facility] 08-08-2024 14:36-0400 SaO2% (BldA) [Mass fraction] 97 % Chair Roark Work Phone: [facility] 08-08-2024 14:36-0400 Systolic blood pressure 129 mm[Hg] Chair Gabbi Work Phone: [facility] 08-08-2024 10:54-0400 Body temperature 98.01 [degF] Chair Roark Work Phone: [facility] 07-31-2024 16:05-0400 Diastolic blood pressure 70 mm[Hg] Gay Enciso NP-C Work Phone: [facility] 07-31-2024 16:05-0400 Heart rate 108 /min Gayomer Enciso CORRUGATOR OPERATOR HELPER-C Work Phone: [facility] 07-31-2024 16:05-0400 SaO2% (BldA) [Mass fraction] 96 % Gayomer Enciso CORRUGATOR OPERATOR HELPER-C Work Phone: [facility] 07-31-2024 16:05-0400 Systolic blood pressure 104 mm[Hg] Gay Britt CORRUGATOR OPERATOR HELPER-C Work Phone: [facility] 07-26-2024 15:06-0500 Body height 170.2 cm Lois Holm MD Work Phone: [facility] 07-26-2024 15:06-0500 Body mass index (BMI) [Ratio] 44.92 kg/m2 Lois Holm MD Work Phone: [facility] 07-26-2024 15:06-0500 Body weight 130.09 kg Lois Holm MD Work Phone: [facility] 07-26-2024 15:06-0500 Diastolic blood pressure 60 mm[Hg] Lois Holm MD Work Phone: [facility] 07-26-2024 15:06-0500 Heart rate 84 /min Lois Holm MD Work Phone: [facility] 07-26-2024 15:06-0500 Systolic blood pressure 100 mm[Hg] Lois Holm MD Work Phone: [facility] 07-19-2024 11:27-0500 Diastolic blood pressure 90 mm[Hg] Gay Enciso CORRUGATOR OPERATOR HELPER-C Work Phone: [facility] 07-19-2024 11:27-0500 Heart rate 78 /min Gayomer Johnmer CORRUGATOR OPERATOR HELPER-C Work Phone: [facility] 07-19-2024 11:27-0500 Respiratory rate 16 /min Gayomer Enciso CORRUGATOR OPERATOR HELPER-C Work Phone: [facility] 07-19-2024 11:27-0500 SaO2% (BldA) [Mass fraction] 96 % Gay Enciso CORRUGATOR OPERATOR HELPER-C Work Phone: [facility] 07-19-2024 11:27-0500 Systolic blood pressure 126 mm[Hg] Gay Enciso CORRUGATOR OPERATOR HELPER-C Work Phone: [facility] 07-19-2024 09:54-0500 Body height 170.18 cm Gay Enciso CORRUGATOR OPERATOR HELPER-C Work Phone: [facility] 07-19-2024 09:54-0500 Body weight 127 kg Gay Enciso CORRUGATOR OPERATOR HELPER-C Work Phone: [facility] 07-12-2024 14:16-0500 Body temperature 96.91 [degF] Marky Barnes PA-C Work Phone: [facility] 07-11-2024 14:30-0500 Body temperature 97.39 [degF] Chair Roark Work Phone: [facility] 07-11-2024 14:30-0500 Diastolic blood pressure 80 mm[Hg] Chair Gabbi Work Phone: [facility] 07-11-2024 14:30-0500 Heart rate 69 /min Chair Roark Work Phone: [facility] 07-11-2024 14:30-0500 Respiratory rate 18 /min Chair Roark Work Phone: [facility] 07-11-2024 14:30-0500 SaO2% (BldA) [Mass fraction] 98 % Chair Gabbi Work Phone: [facility] 07-11-2024 14:30-0500 Systolic blood pressure 119 mm[Hg] Chair Roark Work Phone: [facility] 07-10-2024 15:25-0500 Diastolic blood pressure 70 mm[Hg] [facility] 07-10-2024 15:25-0500 Heart rate 106 /min [facility] 07-10-2024 15:25-0500 SaO2% (BldA) [Mass fraction] 97 % [facility] 07-10-2024 15:25-0500 Systolic blood pressure 102 mm[Hg] [facility] 06-13-2024 14:55-0500 Diastolic blood pressure 56 mm[Hg] Chair Roark Work Phone: [facility] 06-13-2024 14:55-0500 Heart rate 70 /min Chair Roark Work Phone: [facility] 06-13-2024 14:55-0500 Respiratory rate 18 /min Chair Gabbi Work Phone: [facility] 06-13-2024 14:55-0500 SaO2% (BldA) [Mass fraction] 98 % Chair Roark Work Phone: [facility] 06-13-2024 14:55-0500 Systolic blood pressure 93 mm[Hg] Chair Gabbi Work Phone: [facility] 06-13-2024 08:55-0500 Body mass index (BMI) [Ratio] 45.08 kg/m2 Vaibhav Deven WAREHOUSE DISTRIBUTION SPECIALIST.SPEECH THERAPY DIRECTOR Work Phone: [facility] 06-13-2024 08:55-0500 Body temperature 97.59 [degF] Vaibhav Deven WAREHOUSE DISTRIBUTION SPECIALIST.SPEECH THERAPY DIRECTOR Work Phone: [facility] 06-13-2024 08:55-0500 Body weight 130.6 kg Vaibhav Deven WAREHOUSE DISTRIBUTION SPECIALIST.SPEECH THERAPY DIRECTOR Work Phone: [facility] 06-13-2024 08:55-0500 Diastolic blood pressure 71 mm[Hg] Vaibhav Deven WAREHOUSE DISTRIBUTION SPECIALIST.SPEECH THERAPY DIRECTOR Work Phone: [facility] 06-13-2024 08:55-0500 Heart rate 79 /min Vaibhav Deven WAREHOUSE DISTRIBUTION SPECIALIST.SPEECH THERAPY DIRECTOR Work Phone: [facility] 06-13-2024 08:55-0500 Respiratory rate 16 /min Vaibhav Deven WAREHOUSE DISTRIBUTION SPECIALIST.SPEECH THERAPY DIRECTOR Work Phone: [facility] 06-13-2024 08:55-0500 SaO2% (BldA) [Mass fraction] 98 % Vaibhav Carvalho WAREHOUSE DISTRIBUTION SPECIALIST.SPEECH THERAPY DIRECTOR Work Phone: [facility] 06-13-2024 08:55-0500 Systolic blood pressure 106 mm[Hg] Vaibhav Carvalho WAREHOUSE DISTRIBUTION SPECIALIST.SPEECH THERAPY DIRECTOR Work Phone: [facility] 06-06-2024 11:37-0500 Body mass index (BMI) [Ratio] 45.08 kg/m2 Oly Plascencia PA Work Phone: [facility] 06-06-2024 11:37-0500 Body weight 130.54 kg Oly Plascencia PA Work Phone: [facility] 06-06-2024 11:37-0500 Diastolic blood pressure 70 mm[Hg] Oly Plascencia PA Work Phone: [facility] 06-06-2024 11:37-0500 Systolic blood pressure 120 mm[Hg] Oly Plascencia PA Work Phone: [facility] 05-19-2024 15:02-0500 Body temperature 97.3 [degF] Chair Roark Work Phone: [facility] 05-19-2024 15:02-0500 Diastolic blood pressure 63 mm[Hg] Chair Roark Work Phone: [facility] 05-19-2024 15:02-0500 Heart rate 73 /min Chair Roark Work Phone: [facility] 05-19-2024 15:02-0500 Respiratory rate 20 /min Chair Roark Work Phone: [facility] 05-19-2024 15:02-0500 SaO2% (BldA) [Mass fraction] 98 % Chair Roark Work Phone: [facility] Comment on above: 05-19-2024 15:02-0500 Systolic blood pressure 114 mm[Hg] Chair Roark Work Phone: [facility] 04-26-2024 09:31-0500 Body temperature 97.59 [degF] Ma Sand Work Phone: [facility] 04-26-2024 09:31-0500 Diastolic blood pressure 78 mm[Hg] Ma Sand Work Phone: [facility] Comment on above: Manual 04-26-2024 09:31-0500 Heart rate 66 /min Ma Sand Work Phone: [facility] 04-26-2024 09:31-0500 Respiratory rate 16 /min Ma Sand Work Phone: [facility] 04-26-2024 09:31-0500 SaO2% (BldA) [Mass fraction] 99 % Ma Sand Work Phone: [facility] 04-26-2024 09:31-0500 Systolic blood pressure 122 mm[Hg] Ma Sand Work Phone: [facility] Comment on above: Manual 04-10-2024 10:12-0500 Body height 170.2 cm Gordo Barfield MD Work Phone: [facility] 04-10-2024 10:12-0500 Body mass index (BMI) [Ratio] 44.95 kg/m2 Gordo Barfield MD Work Phone: [facility] 04-10-2024 10:12-0500 Body weight 130.18 kg Gordo Barfield MD Work Phone: [facility] 04-10-2024 10:12-0500 Diastolic blood pressure 70 mm[Hg] Gordo Barfield MD Work Phone: [facility] 04-10-2024 10:12-0500 Systolic blood pressure 110 mm[Hg] Gordo Barfield MD Work Phone: [facility] 04-06-2024 10:00-0500 Body height 170.2 cm Hayden Arciniega MD Work Phone: [facility] 04-06-2024 10:00-0500 Body mass index (BMI) [Ratio] 43.07 kg/m2 Hayden Arciniega MD Work Phone: [facility] 04-06-2024 10:00-0500 Body temperature 97 [degF] Hayden Arciniega MD Work Phone: [facility] 04-06-2024 10:00-0500 Body weight 124.74 kg Hayden Arciniega MD Work Phone: [facility] 04-06-2024 10:00-0500 Diastolic blood pressure 80 mm[Hg] Hayden Arciniega MD Work Phone: [facility] 04-06-2024 10:00-0500 Heart rate 86 /min Hayden Arciniega MD Work Phone: [facility] 04-06-2024 10:00-0500 SaO2% (BldA) [Mass fraction] 97 % Hayden Arciniega MD Work Phone: [facility] 04-06-2024 10:00-0500 Systolic blood pressure 136 mm[Hg] Hayden Arciniega MD Work Phone: [facility] 04-02-2024 13:27-0500 Body mass index (BMI) [Ratio] 45.42 kg/m2 Marky Mike DO Work Phone: [facility] 04-02-2024 13:27-0500 Body temperature 98.71 [degF] Marky Mike DO Work Phone: [facility] 04-02-2024 13:27-0500 Body weight 131.54 kg Marky Mike DO Work Phone: [facility] 04-02-2024 13:27-0500 Diastolic blood pressure 90 mm[Hg] Marky Mike DO Work Phone: [facility] 04-02-2024 13:27-0500 Heart rate 78 /min Marky Mike DO Work Phone: [facility] 04-02-2024 13:27-0500 SaO2% (BldA) [Mass fraction] 99 % Marky Mike DO Work Phone: [facility] 04-02-2024 13:27-0500 Systolic blood pressure 132 mm[Hg] Marky Mike DO Work Phone: [facility] 03-23-2024 14:35-0400 Body mass index (BMI) [Ratio] 44.17 kg/m2 Oly Plascencia PA Work Phone: [facility] 03-23-2024 14:35-0400 Body weight 127.91 kg Oly Plascencia PA Work Phone: [facility] 03-23-2024 14:35-0400 Diastolic blood pressure 76 mm[Hg] Oly Plascencia PA Work Phone: [facility] 03-23-2024 14:35-0400 Systolic blood pressure 122 mm[Hg] Oly Plascencia PA Work Phone: [facility] 03-23-2024 10:11-0400 Body height 170.2 cm Ma Sand Work Phone: [facility] 03-23-2024 10:11-0400 Body mass index (BMI) [Ratio] 43.06 kg/m2 Ma Sand Work Phone: [facility] 03-23-2024 10:11-0400 Body temperature 97.59 [degF] Ma Sand Work Phone: [facility] 03-23-2024 10:11-0400 Body weight 124.74 kg Ma Sand Work Phone: [facility] 03-23-2024 10:11-0400 Diastolic blood pressure 85 mm[Hg] Ma Sand Work Phone: [facility] 03-23-2024 10:11-0400 Heart rate 71 /min Ma Sand Work Phone: [facility] 03-23-2024 10:11-0400 Respiratory rate 16 /min Ma Sand Work Phone: [facility] 03-23-2024 10:11-0400 SaO2% (BldA) [Mass fraction] 94 % Ma Sand Work Phone: [facility] 03-23-2024 10:11-0400 Systolic blood pressure 135 mm[Hg] Ma Sand Work Phone: [facility] 03-16-2024 11:24-0400 Body mass index (BMI) [Ratio] 43.67 kg/m2 Luan Skip DO Work Phone: [facility] 03-16-2024 11:24-0400 Body weight 126.46 kg Luan Skip DO Work Phone: [facility] 03-16-2024 11:24-0400 Diastolic blood pressure 70 mm[Hg] Luan Skip DO Work Phone: [facility] 03-16-2024 11:24-0400 Systolic blood pressure 120 mm[Hg] Luan Skip DO Work Phone: [facility] 03-16-2024 09:20-0400 Body height 170.18 cm CORRUGATOR OPERATOR HELPER-C Gay Enciso Work Phone: [facility] 03-16-2024 09:20-0400 Body mass index (BMI) [Ratio] 43 kg/m2 CORRUGATOR OPERATOR HELPER-C Gay Johnmer Work Phone: [facility] 03-16-2024 09:20-0400 Body weight 124.73 kg CORRUGATOR OPERATOR HELPER-C Gay Johnmer Work Phone: [facility] 02-21-2024 11:04-0400 Body temperature 97.2 [degF] Ma Sand Work Phone: [facility] 02-21-2024 11:04-0400 Diastolic blood pressure 68 mm[Hg] Ma Sand Work Phone: [facility] Comment on above: manual 02-21-2024 11:04-0400 Heart rate 95 /min Ma Sand Work Phone: [facility] 02-21-2024 11:04-0400 Respiratory rate 16 /min Ma Sand Work Phone: [facility] 02-21-2024 11:04-0400 SaO2% (BldA) [Mass fraction] 98 % Ma Sand Work Phone: [facility] 02-21-2024 11:04-0400 Systolic blood pressure 102 mm[Hg] Ma Sand Work Phone: [facility] Comment on above: manual 02-16-2024 09:23-0400 Diastolic blood pressure 72 mm[Hg] CORRUGATOR OPERATOR HELPER-C Gay Britt Work Phone: [facility] 02-16-2024 09:23-0400 Heart rate 70 /min CORRUGATOR OPERATOR HELPER-C Gay Britt Work Phone: [facility] 02-16-2024 09:23-0400 Respiratory rate 16 /min CORRUGATOR OPERATOR HELPER-C Gay Britt Work Phone: [facility] 02-16-2024 09:23-0400 SaO2% (BldA) [Mass fraction] 96 % CORRUGATOR OPERATOR HELPER-C Gayomer Johnmer Work Phone: [facility] 02-16-2024 09:23-0400 Systolic blood pressure 126 mm[Hg] CORRUGATOR OPERATOR HELPER-C Gay Britt Work Phone: [facility] 02-16-2024 07:27-0400 Body height 170.18 cm CORRUGATOR OPERATOR HELPER-C Gay Britt Work Phone: [facility] 02-16-2024 07:27-0400 Body weight 122.46 kg CORRUGATOR OPERATOR HELPER-C Gayomer Johnmer Work Phone: [facility] 01-28-2024 11:31-0400 Body weight 126.[address] [facility] 01-28-2024 11:31-0400 Diastolic blood pressure 80 mm[Hg] [facility] 01-28-2024 11:31-0400 Heart rate 69 /min [facility] 01-28-2024 11:31-0400 SaO2% (BldA) [Mass fraction] 98 % [facility] 01-28-2024 11:31-0400 Systolic blood pressure 120 mm[Hg] [facility] 01-25-2024 11:30-0400 Body temperature 97.39 [degF] Ma Sand Work Phone: [facility] 01-25-2024 11:30-0400 Diastolic blood pressure 67 mm[Hg] Ma Sand Work Phone: [facility] 01-25-2024 11:30-0400 Heart rate 68 /min Ma Sand Work Phone: [facility] 01-25-2024 11:30-0400 Respiratory rate 16 /min Ma Sand Work Phone: [facility] 01-25-2024 11:30-0400 SaO2% (BldA) [Mass fraction] 99 % Ma Sand Work Phone: [facility] 01-25-2024 11:30-0400 Systolic blood pressure 92 mm[Hg] Ma Sand Work Phone: [facility] 12-27-2023 11:16-0400 Diastolic blood pressure 68 mm[Hg] Neda Liz PA-C Work Phone: [facility] 12-27-2023 11:16-0400 Systolic blood pressure 98 mm[Hg] Neda Liz PA-C Work Phone: [facility] 12-27-2023 11:02-0400 Body height 170.2 cm Neda Liz PA-C Work Phone: [facility] 12-27-2023 11:02-0400 Body mass index (BMI) [Ratio] 43.08 kg/m2 Neda Liz PA-C Work Phone: [facility] 12-27-2023 11:02-0400 Body temperature 97.7 [degF] Neda Liz PA-C Work Phone: [facility] 12-27-2023 11:02-0400 Body weight 124.8 kg Neda Liz PA-C Work Phone: [facility] 12-27-2023 11:02-0400 Heart rate 89 /min Neda Liz PA-C Work Phone: [facility] 12-27-2023 11:02-0400 Respiratory rate 16 /min Neda Liz PA-C Work Phone: [facility] 12-27-2023 11:02-0400 SaO2% (BldA) [Mass fraction] 98 % Neda Hill PA-C Work Phone: [facility] 12-16-2023 14:13-0400 Body height 170.[address] [facility] 12-16-2023 14:13-0400 Body mass index (BMI) [Ratio] 42.7 kg/m2 [facility] 12-16-2023 14:13-0400 Body temperature 98.6 [degF] [facility] 12-16-2023 14:13-0400 Body weight 123.[address] [facility] 12-16-2023 14:13-0400 Diastolic blood pressure 73 mm[Hg] [facility] 12-16-2023 14:13-0400 Heart rate 75 /min [facility] 12-16-2023 14:13-0400 Systolic blood pressure 106 mm[Hg] [facility] 11-29-2023 13:43-0400 Body temperature 97.59 [degF] Ma Sand Work Phone: [facility] 11-29-2023 13:43-0400 Diastolic blood pressure 51 mm[Hg] Ma Sand Work Phone: [facility] 11-29-2023 13:43-0400 Heart rate 73 /min Ma Sand Work Phone: [facility] 11-29-2023 13:43-0400 Respiratory rate 16 /min Ma Sand Work Phone: [facility] 11-29-2023 13:43-0400 SaO2% (BldA) [Mass fraction] 96 % Ma Sand Work Phone: [facility] 11-29-2023 13:43-0400 Systolic blood pressure 83 mm[Hg] Ma Sand Work Phone: [facility] 11-04-2023 13:55-0400 Body height 170.[address] [facility] 11-04-2023 13:55-0400 Body temperature 97.3 [degF] [facility] 11-04-2023 13:55-0400 Diastolic blood pressure 54 mm[Hg] [facility] 11-04-2023 13:55-0400 Heart rate 62 /min [facility] 11-04-2023 13:55-0400 Systolic blood pressure 104 mm[Hg] [facility] 10-27-2023 14:44-0400 Body temperature 97 [degF] Ma Sand Work Phone: [facility] 10-27-2023 14:44-0400 Diastolic blood pressure 72 mm[Hg] Ma Sand Work Phone: [facility] 10-27-2023 14:44-0400 Heart rate 97 /min Ma Sand Work Phone: [facility] 10-27-2023 14:44-0400 Respiratory rate 18 /min Ma Sand Work Phone: [facility] 10-27-2023 14:44-0400 SaO2% (BldA) [Mass fraction] 97 % Ma Sand Work Phone: [facility] 10-27-2023 14:44-0400 Systolic blood pressure 110 mm[Hg] Ma Sand Work Phone: [facility] 10-20-2023 13:10-0400 Body height 170.[address] [facility] 10-20-2023 13:10-0400 Body mass index (BMI) [Ratio] 43.2 kg/m2 [facility] 10-20-2023 13:10-0400 Body temperature 97.3 [degF] [facility] 10-20-2023 13:10-0400 Body weight 125.[address] [facility] 10-20-2023 13:10-0400 Diastolic blood pressure 54 mm[Hg] [facility] 10-20-2023 13:10-0400 Heart rate 74 /min [facility] 10-20-2023 13:10-0400 Systolic blood pressure 111 mm[Hg] [facility] 09-30-2023 10:48-0400 Body temperature 97 [degF] Ma Sand Work Phone: [facility] 09-30-2023 10:48-0400 Diastolic blood pressure 82 mm[Hg] Ma Sand Work Phone: [facility] 09-30-2023 10:48-0400 Heart rate 71 /min Ma Sand Work Phone: [facility] 09-30-2023 10:48-0400 Respiratory rate 18 /min Ma Sand Work Phone: [facility] 09-30-2023 10:48-0400 SaO2% (BldA) [Mass fraction] 97 % Ma Sand Work Phone: [facility] 09-30-2023 10:48-0400 Systolic blood pressure 132 mm[Hg] Ma Sand Work Phone: [facility] 09-22-2023 14:41-0400 Body weight 117.[address] [facility] 08-31-2023 10:34-0400 Body temperature 97.3 [degF] Ma Sand Work Phone: [facility] 08-31-2023 10:34-0400 Diastolic blood pressure 66 mm[Hg] Ma Sand Work Phone: [facility] 08-31-2023 10:34-0400 Heart rate 68 /min Ma Sand Work Phone: [facility] 08-31-2023 10:34-0400 Respiratory rate 18 /min Ma Sand Work Phone: [facility] 08-31-2023 10:34-0400 SaO2% (BldA) [Mass fraction] 99 % Ma Sand Work Phone: [facility] 08-31-2023 10:34-0400 Systolic blood pressure 105 mm[Hg] Ma Sand Work Phone: [facility] 08-05-2023 11:15-0400 Body temperature 97.39 [degF] Ma Sand Work Phone: [facility] 08-05-2023 11:15-0400 Diastolic blood pressure 41 mm[Hg] Ma Sand Work Phone: [facility] 08-05-2023 11:15-0400 Heart rate 68 /min Ma Sand Work Phone: [facility] 08-05-2023 11:15-0400 Respiratory rate 18 /min Ma Sand Work Phone: [facility] 08-05-2023 11:15-0400 SaO2% (BldA) [Mass fraction] 98 % Ma Sand Work Phone: [facility] 08-05-2023 11:15-0400 Systolic blood pressure 98 mm[Hg] Ma Sand Work Phone: [facility] 07-13-2023 11:49-0500 Body temperature 97.5 [degF] Ma Sand Work Phone: [facility] 07-13-2023 11:49-0500 Diastolic blood pressure 74 mm[Hg] Ma Sand Work Phone: [facility] 07-13-2023 11:49-0500 Heart rate 83 /min Ma Sand Work Phone: [facility] 07-13-2023 11:49-0500 Respiratory rate 18 /min Ma Sand Work Phone: [facility] 07-13-2023 11:49-0500 SaO2% (BldA) [Mass fraction] 96 % Ma Sand Work Phone: [facility] 07-13-2023 11:49-0500 Systolic blood pressure 109 mm[Hg] Ma Sand Work Phone: [facility] 07-13-2023 10:01-0500 Diastolic blood pressure 65 mm[Hg] Lois Holm MD Work Phone: [facility] 07-13-2023 10:01-0500 Systolic blood pressure 105 mm[Hg] Lois Holm MD Work Phone: [facility] 07-13-2023 09:41-0500 Body height 170.2 cm Lois Holm MD Work Phone: [facility] 07-13-2023 09:41-0500 Body mass index (BMI) [Ratio] 43.85 kg/m2 Lois Holm MD Work Phone: [facility] 07-13-2023 09:41-0500 Body weight 127.01 kg Lois Holm MD Work Phone: [facility] 07-13-2023 09:41-0500 Heart rate 71 /min Lois Holm MD Work Phone: [facility] 07-06-2023 14:48-0500 Body mass index (BMI) [Ratio] 41.81 kg/m2 Kade Richardson MD Work Phone: [facility] 07-06-2023 14:48-0500 Body weight 119.3 kg Kade Richardson MD Work Phone: [facility] 06-09-2023 08:45-0500 Body height 170.2 cm Michelle Jasimne WAREHOUSE DISTRIBUTION SPECIALIST-SPEECH THERAPY DIRECTOR Work Phone: [facility] 06-09-2023 08:45-0500 Body mass index (BMI) [Ratio] 44.48 kg/m2 Michelle Jasmine WAREHOUSE DISTRIBUTION SPECIALIST-SPEECH THERAPY DIRECTOR Work Phone: [facility] 06-09-2023 08:45-0500 Body weight 128.82 kg Michelle Jasmine WAREHOUSE DISTRIBUTION SPECIALIST-SPEECH THERAPY DIRECTOR Work Phone: [facility] 06-09-2023 08:45-0500 Diastolic blood pressure 82 mm[Hg] Michelle Jasmine WAREHOUSE DISTRIBUTION SPECIALIST-SPEECH THERAPY DIRECTOR Work Phone: [facility] 06-09-2023 08:45-0500 Heart rate 80 /min Michelle Jasmine WAREHOUSE DISTRIBUTION SPECIALIST-SPEECH THERAPY DIRECTOR Work Phone: [facility] 06-09-2023 08:45-0500 Systolic blood pressure 146 mm[Hg] Michelle Jasmine WAREHOUSE DISTRIBUTION SPECIALIST-SPEECH THERAPY DIRECTOR Work Phone: [facility] 05-26-2023 17:17-0500 Body weight 123.83 kg Christie Phan MD Work Phone: [facility] 04-26-2023 14:42-0500 Body weight 125.19 kg Christie Phan MD Work Phone: [facility] 03-19-2023 11:16-0400 Body temperature 97.7 [degF] Ma Sand Work Phone: [facility] 03-19-2023 11:16-0400 Diastolic blood pressure 54 mm[Hg] Ma Sand Work Phone: [facility] 03-19-2023 11:16-0400 Heart rate 75 /min Ma Sand Work Phone: [facility] 03-19-2023 11:16-0400 Respiratory rate 16 /min Ma Sand Work Phone: [facility] 03-19-2023 11:16-0400 SaO2% (BldA) [Mass fraction] 96 % Ma Sand Work Phone: [facility] 03-19-2023 11:16-0400 Systolic blood pressure 111 mm[Hg] Ma Sand Work Phone: [facility] 02-19-2023 10:56-0400 Body height 170.2 cm Vera Najera MD Work Phone: [facility] 02-19-2023 10:56-0400 Body temperature 97.39 [degF] Vera Najera MD Work Phone: [facility] 02-19-2023 10:56-0400 Body weight 120.75 kg Vera Najera MD Work Phone: [facility] 02-19-2023 10:56-0400 Diastolic blood pressure 69 mm[Hg] Vera Najera MD Work Phone: [facility] 02-19-2023 10:56-0400 Heart rate 110 /min Vera Najera MD Work Phone: [facility] 02-19-2023 10:56-0400 Respiratory rate 16 /min Vera Najera MD Work Phone: [facility] 02-19-2023 10:56-0400 SaO2% (BldA) [Mass fraction] 96 % Vera Najera MD Work Phone: [facility] 02-19-2023 10:56-0400 Systolic blood pressure 132 mm[Hg] Vera Najera MD Work Phone: [facility] 01-22-2023 12:09-0400 Diastolic blood pressure 76 mm[Hg] Ma Sand Work Phone: [facility] 01-22-2023 12:09-0400 Systolic blood pressure 107 mm[Hg] Ma Sand Work Phone: [facility] 01-22-2023 12:08-0400 Body temperature 97.59 [degF] Ma Sand Work Phone: [facility] 01-22-2023 12:08-0400 Heart rate 102 /min Ma Sand Work Phone: [facility] 01-22-2023 12:08-0400 Respiratory rate 16 /min Ma Sand Work Phone: [facility] 01-22-2023 12:08-0400 SaO2% (BldA) [Mass fraction] 97 % Ma Sand Work Phone: [facility] 11-19-2022 11:00-0400 Body temperature 97.2 [degF] Ma Sand Work Phone: [facility] 11-19-2022 11:00-0400 Diastolic blood pressure 54 mm[Hg] Ma Sand Work Phone: [facility] 11-19-2022 11:00-0400 Heart rate 98 /min Ma Sand Work Phone: [facility] 11-19-2022 11:00-0400 Respiratory rate 16 /min Ma Sand Work Phone: [facility] 11-19-2022 11:00-0400 SaO2% (BldA) [Mass fraction] 98 % Ma Sand Work Phone: [facility] 11-19-2022 11:00-0400 Systolic blood pressure 126 mm[Hg] Ma Sand Work Phone: [facility] 10-22-2022 11:51-0400 Body height 170.2 cm Ma Sand Work Phone: [facility] 10-22-2022 11:51-0400 Body weight 120.66 kg Ma Sand Work Phone: [facility] 10-22-2022 11:51-0400 Respiratory rate 16 /min Ma Sand Work Phone: [facility] 10-22-2022 10:50-0400 Body height 170.2 cm Vera Najera MD Work Phone: [facility] 10-22-2022 10:50-0400 Body temperature 97 [degF] Vera Najera MD Work Phone: [facility] 10-22-2022 10:50-0400 Body weight 120.75 kg Vera Najera MD Work Phone: [facility] 10-22-2022 10:50-0400 Diastolic blood pressure 55 mm[Hg] Vera Najera MD Work Phone: [facility] 10-22-2022 10:50-0400 Heart rate 78 /min Vera Najera MD Work Phone: [facility] 10-22-2022 10:50-0400 Respiratory rate 16 /min Vera Najera MD Work Phone: [facility] 10-22-2022 10:50-0400 SaO2% (BldA) [Mass fraction] 98 % Vera Najera MD Work Phone: [facility] 10-22-2022 10:50-0400 Systolic blood pressure 132 mm[Hg] Vera Najera MD Work Phone: [facility] 09-24-2022 10:22-0400 Body height 170.2 cm Ma Sand Work Phone: [facility] 09-24-2022 10:22-0400 Body temperature 97 [degF] Ma Sand Work Phone: [facility] 09-24-2022 10:22-0400 Body weight 120.2 kg Ma Sand Work Phone: [facility] 09-24-2022 10:22-0400 Diastolic blood pressure 81 mm[Hg] Ma Sand Work Phone: [facility] 09-24-2022 10:22-0400 Heart rate 77 /min Ma Sand Work Phone: [facility] 09-24-2022 10:22-0400 Respiratory rate 16 /min Ma Sand Work Phone: [facility] 09-24-2022 10:22-0400 SaO2% (BldA) [Mass fraction] 97 % Ma Sand Work Phone: [facility] 09-24-2022 10:22-0400 Systolic blood pressure 116 mm[Hg] Ma Sand Work Phone: [facility] 09-07-2022 14:03-0400 Body weight 120.2 kg Christie Phan MD Work Phone: [facility] 08-27-2022 09:45-0400 Body height 170.2 cm Rebekah Rojas APRN.SPEECH THERAPY DIRECTOR Work Phone: [facility] 08-27-2022 09:45-0400 Body temperature 97.7 [degF] Rebekah Rojas APRN.SPEECH THERAPY DIRECTOR Work Phone: [facility] 08-27-2022 09:45-0400 Body weight 118.66 kg Rebekah Rojas APRN.SPEECH THERAPY DIRECTOR Work Phone: [facility] 08-27-2022 09:45-0400 Diastolic blood pressure 55 mm[Hg] Rebekah Rojas APRN.SPEECH THERAPY DIRECTOR Work Phone: [facility] 08-27-2022 09:45-0400 Heart rate 63 /min Rebekah Rojas WAREHOUSE DISTRIBUTION SPECIALIST.SPEECH THERAPY DIRECTOR Work Phone: [facility] 08-27-2022 09:45-0400 Respiratory rate 16 /min Rebekah Rojas WAREHOUSE DISTRIBUTION SPECIALIST.SPEECH THERAPY DIRECTOR Work Phone: [facility] 08-27-2022 09:45-0400 SaO2% (BldA) [Mass fraction] 96 % Rebekah Rojas WAREHOUSE DISTRIBUTION SPECIALIST.SPEECH THERAPY DIRECTOR Work Phone: [facility] 08-27-2022 09:45-0400 Systolic blood pressure 117 mm[Hg] Rebekah Rojas WAREHOUSE DISTRIBUTION SPECIALIST.SPEECH THERAPY DIRECTOR Work Phone: [facility] 05-20-2022 13:28-0500 Body height 170.2 cm Vera Najera MD Work Phone: [facility] 05-20-2022 13:28-0500 Body temperature 97.7 [degF] Vera Najera MD Work Phone: [facility] 05-20-2022 13:28-0500 Diastolic blood pressure 70 mm[Hg] Vera Najera MD Work Phone: [facility] 05-20-2022 13:28-0500 Heart rate 93 /min Vera Najera MD Work Phone: [facility] 05-20-2022 13:28-0500 Respiratory rate 16 /min Vera Najera MD Work Phone: [facility] 05-20-2022 13:28-0500 SaO2% (BldA) [Mass fraction] 97 % Vera Najera MD Work Phone: [facility] 05-20-2022 13:28-0500 Systolic blood pressure 127 mm[Hg] Vera Najera MD Work Phone: [facility] 03-18-2022 10:49-0400 Body height 170.2 cm Vera Najera MD Work Phone: [facility] 03-18-2022 10:49-0400 Body temperature 97.81 [degF] Vera Najera MD Work Phone: [facility] 03-18-2022 10:49-0400 Body weight 113.4 kg Vera Najera MD Work Phone: [facility] 03-18-2022 10:49-0400 Diastolic blood pressure 49 mm[Hg] Vera Najera MD Work Phone: [facility] 03-18-2022 10:49-0400 Heart rate 86 /min Vera Najera MD Work Phone: [facility] 03-18-2022 10:49-0400 Respiratory rate 16 /min Vera Najera MD Work Phone: [facility] 03-18-2022 10:49-0400 SaO2% (BldA) [Mass fraction] 98 % Vera Najera MD Work Phone: [facility] 03-18-2022 10:49-0400 Systolic blood pressure 145 mm[Hg] Vera Najera MD Work Phone: [facility] 03-09-2022 11:41-0400 Body height 170.2 cm Christie Phan MD Work Phone: [facility] 03-09-2022 11:41-0400 Body weight 112.49 kg Christie Phan MD Work Phone: [facility] 03-09-2022 11:41-0400 Diastolic blood pressure 100 mm[Hg] Christie Phan MD Work Phone: [facility] 03-09-2022 11:41-0400 Systolic blood pressure 158 mm[Hg] Christie Phan MD Work Phone: [facility] 03-04-2022 10:39-0400 Body height 170.2 cm Vera Najera MD Work Phone: [facility] 03-04-2022 10:39-0400 Body temperature 97.5 [degF] Vera Najera MD Work Phone: [facility] 03-04-2022 10:39-0400 Body weight 112.76 kg Vera Najera MD Work Phone: [facility] 03-04-2022 10:39-0400 Diastolic blood pressure 48 mm[Hg] Vera Najera MD Work Phone: [facility] 03-04-2022 10:39-0400 Heart rate 79 /min Vera Najera MD Work Phone: [facility] 03-04-2022 10:39-0400 Respiratory rate 16 /min Vera Najera MD Work Phone: [facility] 03-04-2022 10:39-0400 SaO2% (BldA) [Mass fraction] 99 % Vera Najera MD Work Phone: [facility] 03-04-2022 10:39-0400 Systolic blood pressure 132 mm[Hg] Vera Najera MD Work Phone: [facility] 11-26-2021 16:00-0400 Body height 168.91 cm Mirela Kelsey Other [employer] Other 11-26-2021 16:00-0400 Body mass index (BMI) [Ratio] 37.68 kg/m2 Mirela Kelsey Other [employer] Other 11-26-2021 16:00-0400 Body temperature 98.4 [degF] Mirela Kelsey Other [employer] Other 11-26-2021 16:00-0400 Body weight 107.5 kg Mirela Kelsey Other [employer] Other 11-26-2021 16:00-0400 Diastolic blood pressure 61 mm[Hg] Mirela Kelsey Other [employer] Other 11-26-2021 16:00-0400 Systolic blood pressure 115 mm[Hg] Mirela Kelsey Other [employer] Other 10-24-2021 08:18-0400 Body weight 108.86 kg Lynne Ni MD Work Phone: [facility] 10-24-2021 08:18-0400 Diastolic blood pressure 42 mm[Hg] Lynne Ni MD Work Phone: [facility] 10-24-2021 08:18-0400 Heart rate 72 /min Lynne Ni MD Work Phone: [facility] 10-24-2021 08:18-0400 Systolic blood pressure 106 mm[Hg] Lynne Ni MD Work Phone: [facility] 10-15-2021 15:45-0400 Body height 168.91 cm Mirela Kelsey Other [employer] Other 10-15-2021 15:45-0400 Body mass index (BMI) [Ratio] 38.31 kg/m2 Mirela Kelsey Other [employer] Other 10-15-2021 15:45-0400 Body temperature 98.1 [degF] Mirela Kelsey Other [employer] Other 10-15-2021 15:45-0400 Body weight 109.32 kg Mirela Kelsey Other [facility] Other 10-15-2021 15:45-0400 Diastolic blood pressure 60 mm[Hg] Mirela Kelsey Other [facility] Other 10-15-2021 15:45-0400 Systolic blood pressure 114 mm[Hg] Mirela Kelsey Other [facility] Other 09-11-2021 15:15-0400 Body height 168.91 cm Mirela Kelsey Other [facility] Other 09-11-2021 15:15-0400 Body mass index (BMI) [Ratio] 37.99 kg/m2 Mirela Kelsey Other [facility] Other 09-11-2021 15:15-0400 Body temperature 97.9 [degF] Mirela Kelsey Other [facility] Other 09-11-2021 15:15-0400 Body weight 108.41 kg Mirela Kelsey Other [facility] Other 09-11-2021 15:15-0400 Diastolic blood pressure 83 mm[Hg] Mirela Kelsey Other [facility] Other 09-11-2021 15:15-0400 Systolic blood pressure 144 mm[Hg] Mirela Kelsey Other [facility] Other 10-07-2020 12:45-0400 Diastolic blood pressure 78 mm[Hg] [employer] Phone: 10-07-2020 12:45-0400 Heart rate 68 /min [employer] Phone: 10-07-2020 12:45-0400 SaO2% (BldA) [Mass fraction] 99 % [employer] Phone: 10-07-2020 12:45-0400 Systolic blood pressure 112 mm[Hg] [employer] Phone: 10-07-2020 10:45-0400 Respiratory rate 22 /min [employer] Phone: 10-07-2020 09:01-0400 Body height 170.2 cm [employer] Work Phone: 10-07-2020 09:01-0400 Body mass index (BMI) [Ratio] 36.65 kg/m2 [employer] Work Phone: 10-07-2020 09:01-0400 Body temperature 97.81 [degF] [employer] Work Phone: 10-07-2020 09:01-0400 Body weight 106.14 kg [employer] Work Phone: Encounters Encounter Date Encounter Type Care Provider Facility Start: 02-14-2025 End: 02-14-2025 Office outpatient visit 15 minutes Bernabe English MD [facility] Comment on above: Pilonidal cyst (Primary Dx); Hidradenitis suppurativa Start: 02-14-2025 End: 02-14-2025 ambulatory BERNABE ENGLISH Not Available Start: 02-14-2025 End: 02-14-2025 Durga English MD [facility] Start: 02-14-2025 End: 02-14-2025 Durga English MD [facility] Start: 02-14-2025 End: 02-14-2025 ambulatory Gay Enciso CORRUGATOR OPERATOR HELPER-C Work Phone: [facility] Work Phone: Start: 02-14-2025 End: 02-14-2025 Patient encounter procedure Margie Arnett NP -[facility] Work Phone: Start: 02-08-2025 End: 02-09-2025 ambulatory LYNNE NI Facility:[facility] Start: 01-31-2025 End: 01-31-2025 Admission to same day surgery center Adolfo Kang MD -[facility] Work Phone: Start: 01-31-2025 End: 01-31-2025 ambulatory Gay Enciso CORRUGATOR OPERATOR HELPER-C Work Phone: [facility] Work Phone: Start: 01-31-2025 Non-patient / Non-visit Adolfo Kang MD -[facility] Work Phone: Start: 01-26-2025 End: [...] Start: 01-17-2025 End: 01-17-2025 ambulatory Gay Enciso CORRUGATOR OPERATOR HELPER-C Work Phone: [facility] Work Phone: Start: 01-17-2025 End: 01-17-2025 Patient encounter procedure Margie Arnett NP -[facility] Work Phone: Start: 01-11-2025 End: 01-12-2025 ambulatory Chair 16 Gabbi Work Phone: Hematology/Oncology Comment on above: Other systemic lupus erythematosus with other organ involvement (HCC) (Primary Dx); Elevated LFTs; Anemia of chronic disease; Elevated sed rate; Elevated C-reactive protein (CRP); Vitamin D deficiency; Vitamin B12 deficiency; Screening-pulmonary TB Start: 12-27-2024 End: 12-27-2024 ambulatory VERA NAJERA Facility:[facility] Start: 12-14-2024 End: 12-14-2024 [facility] Work Phone: Neurology Comment on above: CMN Start: 12-14-2024 End: 12-15-2024 ambulatory Chair 16 Gabbi Work Phone: Hematology/Oncology Comment on above: Other systemic lupus erythematosus with other organ involvement (HCC) (Primary Dx) Start: 12-12-2024 End: 12-12-2024 Patient encounter procedure Bandar Batista APRN -[facility] Work Phone: Start: 11-30-2024 End: 11-30-2024 Follow-up encounter Vaibhav Carvalho APRN.SPEECH THERAPY DIRECTOR Work Phone: Hematology/Oncology Comment on above: Results Start: 11-30-2024 End: 11-30-2024 ambulatory Gay Enciso CORRUGATOR OPERATOR HELPER-C Work Phone: [facility] Work Phone: Start: 11-30-2024 End: 11-30-2024 Patient encounter procedure Margie Arnett -[facility] Work Phone: Start: 11-29-2024 End: 11-29-2024 Office outpatient visit 25 minutes Vaibhav Carvalho APRN.SPEECH THERAPY DIRECTOR Work Phone: Hematology/Oncology Comment on above: Hypogammaglobulinemia [...] Not Available Start: 11-22-2024 ambulatory Janes Barfield Facility:[facility] Start: 11-22-2024 Registered Recurring Janes [place] [employer] Start: 11-21-2024 End: 11-21-2024 ambulatory Gay Enciso CORRUGATOR OPERATOR HELPER-C Work Phone: [facility] Work Phone: Start: 11-21-2024 End: 11-21-2024 Patient encounter procedure Adolfo Kang MD [facility] Work Phone: Start: 11-21-2024 Non-patient / Non-visit Adolfo Kang MD [facility] Work Phone: Start: 11-20-2024 End: 11-20-2024 Telephone encounter Vaibhav Carvalho APRN.CNP Work Phone: Hematology/Oncology Comment on above: Lab Orders Start: 11-16-2024 End: 11-17-2024 ambulatory Chair 16 Gabbi Work Phone: Hematology/Oncology Comment on above: Other systemic lupus erythematosus with other organ involvement (HCC) (Primary Dx) Start: 11-15-2024 End: 11-20-2024 Telephone encounter Cesilia Whalen [facility] Work Phone: [facility] Start: 11-13-2024 End: 11-13-2024 Patient encounter procedure Adolfo Kang MD -[facility] e[facility] Pain Mg[facility] Work Phone: Start: [...] Start: 10-17-2024 End: 10-17-2024 ambulatory MANUEL FERRIS Facility:[facility] Start: 10-07-2024 End: 10-07-2024 Patient encounter procedure [...] both feet; Long-term use of high-risk medication; 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 Work Phone: [facility] Comment on above: Fibromyalgia (Primary Dx); Family history of disease of aorta; Family history of cancer Generalized articula r hypermobility (Primary Dx); Chronic pain syndrome; Discoid lupus erythematosus; Family history of pneumothorax in son; Family history of cancer; Family history of mild aortic dilation in daughter Start: 09-19-2024 End: 09-19-2024 ambulatory LYNNE NI Facility:[facility] Start: 09-18-2024 End: 09-18-2024 Telephone encounter Vera Najera MD Work Phone: [facility] Comment on above: Future Appointment Start: 09-18-2024 [...] Office outpatient visit 25 minutes Vaibhav Carvalho WAREHOUSE DISTRIBUTION SPECIALIST.SPEECH THERAPY DIRECTOR Work Phone: Hematology/Oncology Comment on above: Hypogammaglobulinemia (HCC) (Primary Dx) ; Vitamin B12 deficiency; Other iron deficiency anemia; Megaloblastic anemia due to vitamin B12 deficiency Start: 09-06-2024 End: 09-06-2024 ambulatory VAIBHAV CARVALHO Facility:[facility] Start: 09-04-2024 End: 09-04-2024 Office outpatient visit 25 minutes Gordo Barfield MD [facility] Comment on above: Thyroid nodule (CMS/HCC) (Primary Dx); LPRD (laryngopharyngeal reflux disease) Start: 09-04-2024 End: 09-04-2024 ambulatory GORDO BARFIELD Not Available Start: 09-04-2024 End: 09-04-2024 Bamboo flowsheet Gordo Barfield MD Work Phone: M[facility] SANTO Start: 09-04-2024 End: 09-04-2024 Bamboo flowsheet Gordo Barfield MD Work [facility] Start: 09-01-2024 End: 09-02-2024 Refill Lynne Ni MD Work Phone: Rheumatology Comment on above: Refill Request Start: 08-29-2024 End: 08-29-2024 ambulatory MANUEL M CHEYENNECristina Facility:[facility] Start: 08-28-2024 End: 08-28-2024 Telephone encounter Vaibhav Carvalho WAREHOUSE DISTRIBUTION SPECIALIST.SPEECH THERAPY DIRECTOR Work Phone: Hematology/Oncology Comment on above: Lab Orders Start: 08-24-2024 End: 08-24-2024 Clinisync Result Encounter Gordo Barfield MD Work Phone: [facility] External Department Unsolicited Start: 08-24-2024 End: 08-24-2024 Clinisync Result Encounter Gordo Barfield MD Work Phone: [facility] External Department Unsolicited Start: 08-22-2024 End: 08-22-2024 ambulatory Gay Enciso CORRUGATOR OPERATOR HELPER-C Work Phone: [facility] Work Phone: Start: 08-22-2024 End: 08-22-2024 Patient encounter procedure Gay Enciso CORRUGATOR OPERATOR HELPER-C Work Phone: [facility] Work Phone: Start: 08-17-2024 End: 08-17-2024 Specialty Pharmacy Aidee Quintanilla [facility] Comment [...] Start: 07-31-2024 End: 07-31-2024 ambulatory Gay Enciso CORRUGATOR OPERATOR HELPER-C Work Phone: [facility] Work Phone: Start: 07-31-2024 End: 07-31-2024 Patient encounter procedure Gay Enciso CORRUGATOR OPERATOR HELPER-C Work Phone: [facility] Physician [facility] Work Phone: Start: 07-26-2024 End: 07-26-2024 Office outpatient visit 25 minutes Lois Holm MD Work Phone: [facility] Comment on above: Sinus tachycardia (Primary Dx); Shortness of breath; Paroxysmal supraventricular tachycardia (CMS-HCC); Essential hypertension; Obstructive sleep apnea syndrome; Morbid obesity (Multi); Current smoker Start: 07-26-2024 End: 07-26-2024 ambulatory [facility] Start: 07-25-2024 End: 07-25-2024 Bamboo flowsheet Bernabe English MD Work Phone: [facility] Start: 07-25-2024 End: 07-25-2024 Bamboo flowsheet Bernabe English MD Work Phone: [facility] Start: 07-25-2024 End: 07-25-2024 Office outpatient visit 25 minutes Bernabe English MD Work Phone: [facility] Comment on above: Hidradenitis suppurativa (Primary Dx); Other seborrheic dermatitis; Lupus erythematosus tumidus (CMS/HCC); Rash and other nonspecific skin eruption; Capillary angioma; Neoplasm of uncertain behavior of skin Start: 07-25-2024 End: 07-25-2024 Specialty Pharmacy Aidee Quintanilla [facility] Comment on above: SPP Inflammatory Conditions - Medication Refill (Benlysta) Start: 07-20-2024 End: 07-20-2024 Telemedicine consultation with patient Alhaji Head DO Work Phone: Infectious Disease Start: 07-20-2024 End: 07-20-2024 ambulatory Alhaji Head DO Work Phone: Infectious Disease Comment on above: Nipple discharge (Primary Dx); Other systemic lupus erythematosus with other organ involvement ([facility]); On prednisone therapy; Long-term use of Plaquenil Start: 07-19-2024 Non-patient / Non-visit Gay Enciso NP-C Work Phone: [facility] Pain [facility] Work Phone: Start: 07-19-2024 End: 07-19-2024 Admission to same day surgery center Gay Enciso CORRUGATOR OPERATOR HELPER-C Work Phone: [facility] Work Phone: Start: 07-19-2024 End: 07-19-2024 ambulatory Gay Enciso NP-C Work Phone: [facility] Work Phone: Start: 07-12-2024 End: 07-12-2024 ambulatory MARKY BARNES Facility:[facility] Start: 07-12-2024 End: 07-12-2024 Patient encounter [...] erythematosus Start: 07-10-2024 End: 07-10-2024 ambulatory [facility] Work Phone: Start: 07-10-2024 End: 07-10-2024 Patient encounter procedure [facility] Pain [facility] Work Phone: Start: 07-09-2024 End: 07-10-2024 Telephone encounter Lynne Ni MD Work Phone: Rheumatology Comment on above: Results Start: 06-30-2024 End: 06-30-2024 ambulatory LYNNE NI Facility:[facility] Start: 06-29-2024 End: 06-29-2024 Specialty Pharmacy Aidee Quintanilla [facility] Comment [...] 06-15-2024 Telephone encounter Oly WARREN Work Phone: [facility] Start: 06-14-2024 End: 06-14-2024 Nursing evaluation of patient and report Breath Test [facility] Work Phone: [facility] Comment on above: [...] 06-12-2024 End: 06-13-2024 Telephone encounter Vaibhav Carvalho APRN.SPEECH THERAPY DIRECTOR Work Phone: Hematology/Oncology Comment on above: Lab Orders Start: 06-06-2024 End: 06-06-2024 Bamboo flowsheet Oly WARREN Work Phone: [facility] Start: 06-06-2024 End: 06-10-2024 Bamboo flowsheet Oly WARREN Work Phone: [facility] Start: 06-06-2024 End: 06-10-2024 Clinisync Result Encounter Oly WARREN Work Phone: [facility] External Department Unsolicited Start: 06-06-2024 End: 06-06-2024 Specialty Pharmacy Aidee Quintanilla [facility] Comment on above: SPP [...] 05-15-2024 End: 05-15-2024 Social Work Deisy Jaime [facility] Hematology/Oncology Start: 05-12-2024 End: 05-12-2024 Specialty Pharmacy Aidee Quintanilla [facility] Comment on above: SPP Inflammatory Conditions - Medication Refill (Benlysta) Start: 04-28-2024 End: 04-28-2024 Orders Only Pepper Cotter LPN [facility] Comment on above: Peripheral vascular disease, unspecified (CMS-HCC) (Primary Dx); Cold extremities; Systemic lupus erythematosus (CMS-HCC) Start: 04-26-2024 End: 04-26-2024 ambulatory VERA ABHYANKAR Facility:[facility] Start: 04-26-2024 End: 04-26-2024 Nursing evaluation of patient and report Cele Marshall Work Phone: Hematology/Oncology Comment on above: Elevated sed rate (Primary Dx); Megaloblastic anemia due to vitamin B12 deficiency Start: 04-14-2024 End: 10-05-2024 Telephone encounter [facility] Work Phone: [facility] Comment on above: Patient Update; Appointment Start: 04-11-2024 End: 04-11-2024 Specialty Pharmacy Aidee Quintanilla [facility] Comment on above: SPP Inflammatory Conditions - Medication Refill (Benlysta) Start: 04-10-2024 End: 04-10-2024 Bamboo flowsheet Gordo Barfield MD [facility] Start: 04-10-2024 End: 04-10-2024 Bamboo flowsheet Gordo Barfield MD Work Phone: [facility] SELVIN SANTO Start: 04-10-2024 End: 04-10-2024 Telephone encounter Vera Najera MD Work Phone: [facility] Comment on above: Appointment Start: 04-10-2024 End: 04-10-2024 Office outpatient visit 25 minutes Gordo Barfield MD Work Phone[facility] Comment on above: LPRD (laryngopharyngeal reflux disease) (Primary Dx); Acute otalgia, right Start: 04-10-2024 End: 04-10-2024 ambulatory GORDO BARFIELD Not Available Start: 04-07-2024 End: 04-07-2024 Social Work Deisy Jaime [facility] Hematology/Oncology Start: 04-06-2024 End: 04-06-2024 Clinisync Result Encounter Oly WARREN Work Phone: [facility] External Department Unsolicited Start: 04-06-2024 End: 04-06-2024 Clinisync Result Encounter Oly WARREN Work Phone: [facility] External Department Unsolicited Start: 04-06-2024 End: 04-06-2024 Office outpatient new 30 minutes Hayden Arciniega MD Work Phone: [facility] Surgery Comment on above: Systemic lupus [...] 03-30-2024 ambulatory Maico Douglas MD Work Phone: [facility] Start: 03-27-2024 End: [...] Start: 03-27-2024 End: 03-28-2024 ambulatory VERA NAJERA Facility:[facility] Start: 03-23-2024 End: 03-23-2024 ambulatory OLY PLASCENCIA Not Available Start: 03-23-2024 End: 03-23-2024 Office outpatient visit 15 minutes Oly WARREN Work Phone: [facility] Comment on above: Abnormal uterine bleeding (AUB); Menorrhagia with regular cycle Start: 03-23-2024 End: 03-23-2024 Bamboo flowsheet Oly WARREN Work Phone: [facility] Start: 03-23-2024 End: 03-23-2024 Bamboo flowsheet Oly WARREN Work Phone: [facility] Start: 03-23-2024 End: 03-23-2024 Nursing evaluation of patient and report Ma Nurse Dre Marshall Work Phone: Hematology/Oncology Comment on above: Elevated sed rate (Primary Dx); Megaloblastic anemia due to vitamin B12 deficiency Start: 03-23-2024 End: 03-23-2024 ambulatory MANUEL FERRIS Facility:[facility] Start: 03-20-2024 End: 03-30-2024 Telephone encounter Akiko Cooper MD Work Phone: [facility] Start: 03-18-2024 End: 03-18-2024 ambulatory LYNNE NI Facility:[facility] Start: 03-18-2024 End: 03-18-2024 Patient encounter [...] both feet; Long-term use of high-risk medication; alf 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; Bilateral hand [...] Not Available Start: 03-16-2024 End: 03-16-2024 ambulatory CORRUGATOR OPERATOR HELPER-C Gay Enciso Work Phone: [facility] Work Phone: Start: 03-16-2024 End: 03-16-2024 Patient encounter procedure CORRUGATOR OPERATOR HELPER-C Gay Enciso Work Phone: [facility] Gastroenterology Work Phone: Start: 03-13-2024 End: 03-13-2024 Specialty Pharmacy Aidee Quintanilla [facility] Comment on above: SPP Inflammatory Conditions - Medication Refill (Benlysta - NCA 09/2024) Start: 03-08-2024 End: 03-08-2024 ambulatory EHAB [facility] Start: 03-07-2024 End: 03-08-2024 Chart abstracting [facility] Work Phone: Neurology Comment on above: cmn Start: 03-02-2024 End: 03-02-2024 Refill Zita Cuellar CORRUGATOR OPERATOR HELPER Work Phone: [facility] 210 Comment on above: Lumbosacral radiculopathy at L5; Degenerative disc disease, lumbar; Cervical radiculopathy at C5 Start: 02-28-2024 End: 02-28-2024 ambulatory CORRUGATOR OPERATOR HELPER-C Gay Enciso Work Phone: [facility] Work Phone: Start: 02-28-2024 End: 02-28-2024 Patient encounter procedure CORRUGATOR OPERATOR HELPER-C Gay Enciso Work Phone: [facility] Work Phone: Start: 02-22-2024 End: 02-22-2024 Telephone encounter Oly Elam [facility] Work Phone: [facility] Comment on above: Underground Supervisor - Other (Eds scheduling ) Start: 02-21-2024 End: 02-21-2024 Nursing evaluation of patient and report Ma Nurse Dre Marshall Work Phone: Hematology/Oncology Comment on above: Elevated sed rate (Primary Dx); Megaloblastic anemia due to vitamin B12 deficiency Start: 02-21-2024 End: 02-21-2024 ambulatory MANUEL Lynne QUINNCristina Facility:[facility] Start: 02-18-2024 End: 02-18-2024 Telephone encounter Lynne Ni MD Work Phone: Rheumatology Start: 02-16-2024 Non-patient / Non-visit CORRUGATOR OPERATOR HELPER-C Gay Enciso Work Phone: [facility] Work Phone: Start: 02-16-2024 End: 02-16-2024 Admission to same day surgery center CORRUGATOR OPERATOR HELPER-C Gay Enciso Work Phone: [facility] Work Phone: Start: 02-16-2024 End: 02-16-2024 ambulatory CORRUGATOR OPERATOR HELPER-C Gay Enciso Work Phone: [facility] Work Phone: Start: 02-15-2024 End: 02-15-2024 Telephone encounter Lexus Heck APRN.SPEECH THERAPY DIRECTOR Work Phone: Neurology Comment on above: Orders (PAP RX.) Start: 02-14-2024 End: 02-14-2024 Follow-up encounter Aidee Quintanilla [facility] Comment on above: SPP Inflammatory Conditions - Follow-up (Benlysta); Insurance Authorization ([place] Renew[place] Submitted) Start: 02-14-2024 End: 02-14-2024 ambulatory Lexus Heck APRN.SPEECH THERAPY DIRECTOR Work Phone: Neurology Comment on above: JOSE RAFAEL (obstructive sleep apnea) (Primary D x); Somnolence, daytime SPP Inflammatory Con ditions - Medication Refill (Benlysta - NCA 09/2024) Start: 02-14-2024 End: 02-14-2024 Telemedicine consultation with patient Lexus Heck APRN.SPEECH THERAPY DIRECTOR Work Phone: Neurology Start: 02-09-2024 End: 02-09-2024 Bamboo flowsheet Zita Cuellar CORRUGATOR OPERATOR HELPER Work Phone: [facility] Start: 02-09-2024 End: 02-09-2024 Bamboo flowsheet Zita Cuellar CORRUGATOR OPERATOR HELPER Work Phone: [facility] Start: 02-09-2024 End: 02-09-2024 Phys/qhp telephone evaluation 21-30 min Zita Cuellar CORRUGATOR OPERATOR HELPER Work Phone: [facility] NE[facility] 210 Comment on above: Lumbosacral radiculopathy at L5 (Primary Dx); Degenerative disc disease, lumbar; Cervical radiculopathy at C5 Start: 02-07-2024 End: 02-07-2024 Refill Zita Cuellar CORRUGATOR OPERATOR HELPER Work Phone: [facility] 210 Comment on above: Autoimmune disease (CMS/HCC); Fibromyalgia; Numbness Start: 01-28-2024 End: 01-31-2024 ambulatory Alhaji Head DO Work Phone: [facility] Work Phone: Comment on above: Blood work Start: 01-28-2024 End: 01-28-2024 Patient encounter procedure [facility] mAelia Work Phone: Start: 01-27-2024 End: 01-27-2024 Telemedicine [...] 01-20-2024 Refill Kade Richardson MD Work Phone: [facility] 210 Comment on above: Degenerative disc disease, lumbar (Prima ry Dx); Lumbosacral radiculopathy at L5 Start: 01-18-2024 End: 01-19-2024 Specialty Pharmacy Aidee Quintanilla [facility] Comment on above: SPP [...] apnea syndrome Start: 12-24-2023 End: 12-24-2023 ambulatory [facility] Ambulatory Start: 12-16-2023 End: 12-16-2023 ambulatory [facility] Work Phone: Start: 12-16-2023 End: 12-16-2023 Patient encounter procedure [facility] Work Phone: Start: 12-13-2023 Specialty Pharmacy Aidee Quintanilla [facility] Comment on above: SPP Inflammatory Conditions - Medication Refill (Benlysta - NCA 09/2024) Start: 11-29-2023 End: 11-29-2023 Nursing evaluation of patient and report Ca Nurse Dre Marshall Work Phone: Hematology/Oncology Comment on above: Elevated sed rate (Primary Dx); Megaloblastic anemia due to vitamin B12 deficiency Start: 11-25-2023 ambulatory Vera Najera MD Work Phone: Hematology/Oncology Comment on above: Folic acid Start: 11-15-2023 Specialty Pharmacy Aidee Quintanilla [facility] Comment on above: SPP Inflammatory Conditions - Medication Refill (Benlysta - NCA 09/2024) Start: 11-11-2023 Refill Lynne Ni MD Work Phone: Rheumatology Comment on above: Refill Request Start: 11-04-2023 End: 11-04-2023 ambulatory [facility] Work Phone: Start: 11-04-2023 End: 11-04-2023 Patient encounter procedure [facility] Work Phone: Start: [...] Cdiff Start: 10-20-2023 End: 10-20-2023 ambulatory [facility] Work Phone: Start: 10-20-2023 End: 10-20-2023 Patient encounter procedure [facility] Work Phone: Start: 10-12-2023 Specialty Pharmacy Aidee Quintanilla [facility] Comment on above: SPP [...] Plaquenil; Long-term use of high-risk medication; 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; 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; Bilateral hand pain; History of vitamin D deficiency Start: 10-05-2023 End: 10-05-2023 Telemedicine consultation with patient Lynne iN MD Work Phone: Rheumatology Start: 09-30-2023 End: 09-30-2023 Nursing evaluation of patient and report Cele Marshall Work Phone: Hematology/Oncology Comment on above: Elevated sed rate (Primary Dx); Megaloblastic anemia due to vitamin B12 deficiency Start: 09-22-2023 End: 09-22-2023 Patient encounter procedure [facility] Gastroenterology Work Phone: Start: 09-13-2023 Specialty Pharmacy Aidee [facility] Pharm[facility] Comment on above: [...] with patient Vera Najera MD Work Phone: [facility] Start: 09-04-2023 Telephone encounter Lynne Ni MD Work Phone: Rheumatology Comment on above: Results Start: 08-31-2023 End: 08-31-2023 Nursing evaluation of patient and report Cele Marshall Work Phone: Hematology/Oncology Comment on above: 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); Elevated sed rate Start: 08-12-2023 Specialty Pharmacy Aideeradu Quintanilla [facility] Comment on above: SPP Inflammatory Conditions - Medication Refill (Benlysta ) Start: 08-05-2023 End: 08-05-2023 Nursing evaluation of patient and report Cele Marshall Work Phone: Hematology/Oncology Comment on above: 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); Elevated sed rate Start: 07-28-2023 Non-patient / Non-visit [facility] Gianna anne marie Group-[facility] Gastroenterology Work Phone: Start: 07-13-2023 ambulatory Aidee Quintanilla [facility] Start: 07-13-2023 End: 07-13-2023 Nursing evaluation of patient and report Cele Marshall Work Phone: Hematology/Oncology Comment on above: 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); Elevated sed rate SPP Inflammatory Con ditions - Medication Refill (Benlysta ) Start: 07-13-2023 End: 07-13-2023 Office outpatient new 45 minutes Lois Holm MD Work Phone: [facility] Comment on above: Shortness of breath (Primary Dx); Paroxysmal supraventricular tachycardia; PAC (premature atrial contraction); Current smoker; Systemic lupus erythematosus, unspecified SLE type, unspecified organ involvement status (CMS/HCC); Palpitations; Obstructive sleep apnea syndrome; Morbid obesity (CMS/HCC); Bilateral lower extremity edema Start: 07-06-2023 End: 07-06-2023 Office outpatient visit 25 minutes Kade Richardson MD Work Phone: [facility] 210 Comment on above: Autoimmune disease (CMS/HCC) (Primary Dx ); Autonomic dysfunction; Lumbosacral radiculopathy; Bilateral leg weakness Start: 07-05-2023 Chart abstracting Kade Richardson MD Work Phone: [facility] 210 Start: 06-09-2023 End: 06-09-2023 Office outpatient new 60 minutes Michelle Jasmine APRN-SPEECH THERAPY DIRECTOR Work Phone: [facility] Comment on above: Irregular heart [...] Phentermine Start: 04-22-2023 Telephone encounter Enma Hamm service bar cashier/Oncology Comment on above: Results Start: 04-16-2023 End: [...] Nursing evaluation of patient and report Nurse oMra [facility] Nick[facility] Work Phone: Rheumatology Comment on above: [...] Elevated sed rate; Bilateral wrist pain; 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; Steroid-induced osteoporosis; 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 Start: 02-04-2023 Patient encounter procedure Clinton Schroeder (Pharmacist) [facility] Specialty Pharmacy Comment on above: SPP Inflammatory Conditions - Treatment Referral (Benlysta); Insurance Authorization ([place] submission pending) Start: 02-04-2023 Telephone encounter Lynne Ni MD Work Phone: Rheumatology Comment on above: Appointment; Orders; Medication Authoriz ation Start: 02-04-2023 End: 02-04-2023 Telemedicine consultation with patient Lynne Ni MD Work Phone: [facility] Start: 01-28-2023 Refill Christie Phan MD Work Phone: Integrated [facility] Comment on above: Refill Request Start: 01-24-2023 Telephone encounter Lynne Ni MD Work Phone: Rheumatology Comment on above: Results Start: 01-22-2023 End: 01-22-2023 Nursing evaluation of patient and report Ca Nurse Dre Marshall Work Phone: Hematology/Oncology Comment [...] with patient Misty Nelson MD Work Phone: [facility] Start: 12-24-2022 Refill Christie Phan MD Work Phone: [facility] Medicine Comment on above: Refill Request Start: 12-18-2022 Telephone encounter Lidia Argueta RN Work Phone: Hematology/Oncology Comment on above: Care Coordination (appointment) Start: 12-17-2022 End: 12-18-2022 ambulatory Rebekah Rojas WAREHOUSE DISTRIBUTION SPECIALIST.SPEECH THERAPY DIRECTOR Work Phone: Hematology/Oncology Comment on above: 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); Chronic fatigue and malaise Start: 12-17-2022 End: 12-18-2022 Telemedicine consultation with patient Rebekah Bob WAREHOUSE DISTRIBUTION SPECIALIST.SPEECH THERAPY DIRECTOR Work Phone: [facility] Start: 12-16-2022 Telephone encounter [...] Facility: Start: 09-08-2022 Telephone encounter Angelia Washington [facility] Delivery - Compliance Comment on [...] Start: 08-27-2022 End: 08-27-2022 ambulatory Rebekah Rojas APRN.SPEECH THERAPY DIRECTOR Work Phone: Hematology/Oncology Comment on above: 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); Elevated sed rate; High total serum IgM; Chronic fatigue and malaise; JOSE RAFAEL (obstructive sleep apnea) Start: 08-27-2022 End: 08-27-2022 Patient encounter procedure Rebekah Bob WAREHOUSE DISTRIBUTION SPECIALIST.SPEECH THERAPY DIRECTOR Work Phone: [facility] Start: 08-19-2022 Telephone encounter Lynne Ni MD Work Phone: Rheumatology Comment on above: Results Start: 08-15-2022 ambulatory Lynne Ni MD Work Phone: Rheumatology Comment on above: update Start: 08-10-2022 Refill Christie Phan MD Work Phone: [facility] Comment on above: Refill Request Start: 07-27-2022 End: 07-27-2022 ambulatory Lexus Heck WAREHOUSE DISTRIBUTION SPECIALIST.SPEECH THERAPY DIRECTOR Work Phone: Neurology Comment on above: JOSE RAFAEL (obstructive sleep apnea) (Primary D x) Start: 07-27-2022 End: 07-27-2022 Telemedicine consultation with patient Lexus Heck APRN.SPEECH THERAPY DIRECTOR Work Phone: [facility] Start: 07-24-2022 ambulatory Lynne Ni MD Work Phone: Rheumatology Comment on above: Blood work Start: 07-24-2022 Telephone encounter Vera Najera MD Work Phone: Hematology/Oncology Comment on above: Orders (Lab Orders Before Appoint ment) Start: 07-21-2022 ambulatory Lawanda Miranda MD Work Phone: [facility] Start: 07-21-2022 Patient encounter [...] Coordinator [facility] Comment on above: Appointment; Underground Supervisor - Other Start: 03-31-2022 End: 04-01-[address] MANUEL FERRIS . Facility:[facility] Start: 03-31-2022 Refill Christie Phan MD Work Phone: [facility] Comment on above: Refill [...] from caregiver Christie Phan MD Work Phone: [facility] Start: 03-18-2022 End: 03-18-2022 Patient [...] from caregiver Alhaji Head DO Work Phone: [facility] Start: 03-10-2022 End: 03-10-2022 Telemedicine consultation with patient Misty Nelson MD Work Phone: [facility] Start: 03-09-2022 End: 03-10-2022 ambulatory GAY ENCISO Facility: Start: 03-09-2022 End: 03-09-2022 Office consultation new/estab patient 80 min Christie Phan MD Work Phone: [facility] Comment on above: Obesity, [...] with patient Alhaji Head DO Work Phone: [facility] Start: 02-14-2022 End: 02-15-[address] MANUEL FERRIS . Facility:[facility] Start: 11-26-2021 End: 11-26-2021 ambulatory Mirela Kelsey Other [facility] Other Start: 11-26-2021 Office outpatient visit 25 minutes Mirela Kelsey [facility] Infectious Disease Start: 11-17-2021 End: [...] 10-15-2021 End: 10-15-2021 ambulatory Mirela Kelsey Other [facility] Other Start: 10-15-2021 Office outpatient visit 25 minutes Mirela Kelsey [facility] Start: 10-03-2021 End: [address] MIRELA KELSEY Facility:[facility] Start: 09-18-2021 End: 09-18-2021 ambulatory Mirela Kelsey Other [facility] Other Start: 09-18-2021 Telephone encounter Mirela LOPEZ Infectious Disease Start: 09-11-2021 End: 09-11-2021 ambulatory Mirela Kelsey Other [facility] Other Start: 09-11-2021 Office outpatient new 45 minutes Mirela Kelsey [facility] Start: 10-07-2020 End: 10-08-2020 ambulatory AMIVY HOLLEY [facility] Start: 10-07-2020 End: 10-07-2020 Subsequent hospital visit by physician [facility] [employer] Rm A [facility] [employer] Work[employer] Comment on above: Arrived Start: 09-14-2018 End: 09-17-2018 Patient encounter procedure [facility] Procedures Date Procedure Procedure Detail Performing Clinician Start: 01-31-2025 DH Nerve Radio Frequ ency (Bilateral) Gay Enciso CORRUGATOR OPERATOR HELPER-C Work Phone: Start: 01-11-2025 Blood count complete automated Lynne Ni MD Work Phone: Start: 10-02-2024 Blood count complete automated Lynne Ni MD Work Phone: Start: 10-02-2024 C-reactive protein Christie Ni MD Work Phone: Start: 09-06-2024 Assay of gammaglobul in iga igd igg igm each Vaibhav Carvalho WAREHOUSE DISTRIBUTION SPECIALIST.SPEECH THERAPY DIRECTOR Work Phone: Start: 08-24-2024 Us soft tissue head & neck real time imge docm Gordo Barfield MD Work Phone: Start: 07-19-2024 Injection of local anesthetic into sacroiliac joint Gay Enciso CORRUGATOR OPERATOR HELPER-C Work Phone: Start: 06-13-2024 Blood count complete auto&auto difrntl wbc Vaibhav Carvalho WAREHOUSE DISTRIBUTION SPECIALIST.SPEECH THERAPY DIRECTOR Work Phone: Start: 06-06-2024 IGP,APTIMA HPV,AGE GDLN [...] Injection of local anesthetic into sacroiliac joint CORRUGATOR OPERATOR HELPER-C Gay Enciso Work Phone: Start: 07-13-2023 Ecg routine ecg w/le ast 12 lds w/i&r Lois Holm MD Work Phone: Start: 06-09-2023 Ecg routine ecg w/le ast 12 lds w/i&r Michelle London Mitali WAREHOUSE DISTRIBUTION SPECIALIST-SPEECH THERAPY DIRECTOR Work Phone: Start: 09-10-2022 Microscopic observat ion [...] 09-11-2027 Screening for malignant neoplasm of cervix [facility] Start: 06-06-2027 Screening for malignant neoplasm of cervix [facility] Start: 09-10-2025 Screening for malignant neoplasm of cervix Pap Smear [facility] Start: 07-26-2025 End: 07-26-2025 Patient encounter procedure 07/26/2025 11:00 AM EST Office Visit [facility] [address] [place] [id number] Lois Holm MD [address] [place] [address] [facility] Start: 07-25-2025 End: 07-25-2025 Patient encounter procedure [facility] Start: 04-20-2025 End: 01-18-2026 25-hydroxyvitamin D3 [Mass/volume] in Serum or Plasma VITAMIN D 25 HYDROXY Lab Routine Vitamin D deficiency Expected: 04/20/2025 (Approximate), Expires: 01/18/2026 [facility] Comment on above: Expected: 04/20/2025 (Approximate), Expi res: 01/18/2026 Start: 04-20-2025 End: 01-18-2026 C reactive protein [Mass/volume] in Serum or Plasma C-REACTIVE PROTEIN Lab Routine Elevated C-reactive protein (CRP) Elevated sed rate Expected: 04/20/2025 (Approximate), Expires: 01/18/2026 [facility] Comment on above: Expected: 04/20/2025 (Approximate), Expi res: 01/18/2026 Start: 04-20-2025 End: 01-18-2026 CBC panel - Blood by Automated count COMPLETE BLOOD COUNT Lab Routine Anemia of chronic disease Expected: 04/20/2025 (Approximate), Expires: 01/18/2026 [facility] Comment on above: Expected: 04/20/2025 (Approximate), Expi res: 01/18/2026 Start: 04-20-2025 End: 01-18-2026 Comprehensive metabolic 2000 panel - Serum or Plasma COMPREHENSIVE METABOLIC PANEL Lab Routine Elevated LFTs Expected: 04/20/2025 (Approximate), Expires: 01/18/2026 [facility] Work Phone: Comment on above: Expected: 04/20/2025 (Approximate), Expi res: 01/18/2026 Start: 04-20-2025 End: 01-18-2026 Erythrocyte sedimentation rate SEDIMENTATION RATE, WESTERGREN Lab Routine Elevated C-reactive protein (CRP) Elevated sed rate Expected: 04/20/2025 (Approximate), Expires: 01/18/2026 [facility] Comment on above: Expected: 04/20/2025 (Approximate), Expi res: 01/18/2026 Start: 04-07-2025 Screening for malignant neoplasm of breast Mammogram [facility] Start: 04-06-2025 Adult BMI Screening Adult BMI Screening [facility] Start: 04-06-2025 Screening for malignant neoplasm of breast Mammogram [facility] Start: 04-06-2025 Tobacco Screening Tobacco Screening [facility] Start: 03-19-2025 End: 03-19-2025 [facility] Start: 03-17-2025 Diabetes mellitus screening Diabetes Screening [facility] Start: 02-21-2025 End: 02-21-2025 ambulatory Hematology/Oncology Comment on above: 3 mo F/U-IVIG Start: 02-21-2025 End: 02-21-2025 Patient encounter procedure 02/21/2025 8:45 AM EDT Office Visit [facility] [place] [address] 3 mo F/U-IVIG [facility] Comment on above: 3 mo F/U-IVIG Start: 02-14-2025 End: 02-14-2025 Patient encounter procedure 02/14/2025 3:20 PM EDT Office Visit [facility] [address] [place] [phone] Bernabe English MD [address] [place] [address] Arrived [facility] Comment on above: Arrived Start: 02-08-2025 End: 02-08-2025 ambulatory 02/08/2025 2:00 PM EDT [facility] Hematology/Oncology [address] [place] [address] BEN[facility]STA - Hematology/Oncology Comment on above: BENLYSTA - Start: 01-31-2025 [facility] Start: 01-24-2025 End: 01-24-2025 ambulatory Hematology/Oncology Comment on above: IVIG q4 weeks IVIG(5hours) q4 week s Start: 01-22-2025 Influenza vaccination [facility] Start: 01-06-2025 End: 10-06-2025 25-hydroxyvitamin D3 [Mass/volume] in Serum or Plasma VITAMIN D 25 HYDROXY Lab Routine Vitamin D deficiency Expected: 01/06/2025 (Approximate), Expires: 10/06/2025 [facility] Comment on above: Expected: 01/06/2025 (Approximate), Expi res: 10/06/2025 Start: 01-06-2025 End: 10-06-2025 BLOOD TB SCREEN BLOOD TB SCREEN Lab Routine Screening-pulmonary TB Expected: 01/06/2025 (Approximate), Expires: 10/06/2025 [facility] Comment on above: Expected: 01/06/2025 (Approximate), Expi res: 10/06/2025 Start: 01-06-2025 End: 10-06-2025 C reactive protein [Mass/volume] in Serum or Plasma C-REACTIVE PROTEIN Lab Routine Elevated sed rate Elevated C-reactive protein (CRP) Expected: 01/06/2025 (Approximate), Expires: 10/06/2025 [facility] Comment on above: Expected: 01/06/2025 (Approximate), Expi res: 10/06/2025 Start: 01-06-2025 End: 10-06-2025 CBC panel - Blood by Automated count COMPLETE BLOOD COUNT Lab Routine Anemia of chronic disease Expected: 01/06/2025 (Approximate), Expires: 10/06/2025 [facility] Comment on above: Expected: 01/06/2025 (Approximate), Expi res: 10/06/2025 Start: 01-06-2025 End: 10-06-2025 Chronic hepatitis differentiation between hepatitis B and C virus panel - Serum or Plasma HEP REMOTE PANEL BL Lab Routine Elevated LFTs Expected: 01/06/2025 (Approximate), Expires: 10/06/2025 [facility] Comment on above: Expected: 01/06/2025 (Approximate), Expi res: 10/06/2025 Start: 01-06-2025 End: 10-06-2025 Cobalamin (Vitamin B12) [Mass/volume] in Serum or Plasma VITAMIN B12 Lab Routine Vitamin B12 deficiency Expected: 01/06/2025 (Approximate), Expires: 10/06/2025 [facility] Comment on above: Expected: 01/06/2025 (Approximate), Expi res: 10/06/2025 Start: 01-06-2025 End: 10-06-2025 Comprehensive metabolic 2000 panel - Serum or Plasma COMPREHENSIVE METABOLIC PANEL Lab Routine Elevated LFTs Expected: 01/06/2025 (Approximate), Expires: 10/06/2025 [facility] Work Phone: Comment on above: Expected: 01/06/2025 (Approximate), Expi res: 10/06/2025 Start: 01-06-2025 End: 10-06-2025 Erythrocyte sedimentation rate SEDIMENTATION RATE, WESTERGREN Lab Routine Elevated sed rate Elevated C-reactive protein (CRP) Expected: 01/06/2025 (Approximate), Expires: 10/06/2025 [facility] Comment on above: Expected: 01/06/2025 (Approximate), Expi res: 10/06/2025 Start: 12-27-2024 End: 12-27-2024 ambulatory 12/27/2024 9:00 AM T Infusion Center Hematology/Oncology [address] [place] [address] IVIG q4 weeks Hematology/Oncology Comment on above: IVIG q4 weeks Start: 12-14-2024 End: 12-14-2024 ambulatory 12/14/2024 2:00 PM [facility] Infusion Center Hematology/Oncology [address] [place] [address] [facility] - Hematology/Oncology Comment on above: BENLYSTA - Start: 11-29-2024 End: 11-29-2024 ambulatory Hematology/Oncology Comment on above: 3 mo F/U-IVIG(slow infusion per pt reque st/B12 +/-IV iron lab Start: 11-29-2024 End: 11-29-2024 Patient encounter procedure 11/29/2024 8:45 AM EDT Office Visit [facility] [address] [place] [address] [place] [address] 3 mo F/U-IVIG(slow infusion per pt request/B12 +/-IV iron lab [facility] Comment on above: 3 mo F/U-IVIG(slow infusion per pt reque st/B12 +/-IV iron lab Start: 11-20-2024 End: 02-19-2025 CBC W Auto Differential panel - Blood COMPLETE BLOOD COUNT AND DIFFERENTIAL Lab Routine Hypogammaglobulinemia (HCC) Expected: 11/20/2024, Expires: 02/19/2025 [facility] Work Phone: Comment on above: Expected: 11/20/2024, Expires: Start: 11-20-2024 End: 02-19-2025 Cobalamin (Vitamin B12) [Mass/volume] in Serum or Plasma VITAMIN B12 Lab Routine Hypogammaglobulinemia (HCC) Expected: 11/20/2024, Expires: 02/19/2025 [facility] Comment on above: Expected: 11/20/2024, Expires: Start: 11-20-2024 End: 02-19-2025 Comprehensive metabolic 2000 panel - Serum or Plasma COMPREHENSIVE METABOLIC PANEL Lab Routine Hypogammaglobulinemia (HCC) Expected: 11/20/2024, Expires: 02/19/2025 [facility] Comment on above: Expected: 11/20/2024, Expires: Start: 11-20-2024 End: 02-19-2025 Ferritin [Mass/volume] in Serum or Plasma FERRITIN Lab Routine Hypogammaglobulinemia (HCC) Expected: 11/20/2024, Expires: 02/19/2025 [facility] Comment on above: Expected: 11/20/2024, Expires: Start: 11-20-2024 End: 02-19-2025 Folate [Mass/volume] in Serum or Plasma FOLATE, SERUM Lab Routine Hypogammaglobulinemia (HCC) Expected: 11/20/2024, Expires: 02/19/2025 [facility] Comment on above: Expected: 11/20/2024, Expires: Start: 11-20-2024 End: 02-19-2025 IMMUNOGLOBULINS,IGG,IGA,IG M IMMUNOGLOBULINS,IGG,IGA,IG M Lab Routine Hypogammaglobulinemia (HCC) Expected: 11/20/2024, Expires: 02/19/2025 [facility] Comment on above: Expected: 11/20/2024, Expires: Start: 11-20-2024 Influenza vaccination Influenza Vaccine (#1) [facility] Comment on above: Postponed from 01/23/2024 (Patient Refus ed) Start: 11-20-2024 End: 02-19-2025 Iron and Iron binding capacity panel - Serum or Plasma IRON AND TIBC Lab Routine Hypogammaglobulinemia (HCC) Expected: 11/20/2024, Expires: 02/19/2025 [facility] Comment on above: Expected: 11/20/2024, Expires: Start: 11-16-2024 End: 11-16-2024 ambulatory 11/16/2024 2:00 PM EDT Infusion Center Hematology/Oncology [address] [place] [address] [facility] - Hematology/Oncology Comment on above: BENLYSTA - Start: 11-01-2024 End: 11-01-2024 ambulatory 11/01/2024 9:00 AM EDT Infusion Center Hematology/Oncology [address] [place] [address] IVIG q 4 weeks with B 12 inj and lab Hematology/Oncology Comment on above: IVIG q 4 weeks with B 12 inj and lab Start: 10-31-2024 End: 10-31-2024 ambulatory 10/31/2024 9:00 AM EDT Infusion Center Hematology/Oncology [address] [place] [address] IVIG q 4 weeks with B 12 inj and lab Hematology/Oncology Comment on above: IVIG q 4 weeks with B 12 inj and lab Start: 10-19-2024 End: 10-19-2024 ambulatory 10/19/2024 2:00 PM EDT Infusion Center Hematology/Oncology [address] [place] [address] BENLYSTA - IVIG AND BENLYSTA AT LEAST 1 DAY APART FOR FUTURE APPTS Hematology/Oncology Comment on above: BENLYSTA - IVIG AND BENLYSTA AT LEAST 1 DAY APART FOR FUTURE APPTS Start: 10-18-2024 End: 10-18-2024 Specialty Pharmacy 10/18/2024 10:00 AM EDT Specialty Pharmacy [facility] [address] [place] [address] [id number] [place] [address] Pharmacist, [facility] [address] [place] [address] [place] [address] REFILL- Benlysta- PAx 02/11/25- - mult call attempts [facility] Comment on above: REFILL- Benlysta- PAx 02/11/25- - mult call attempts Start: 10-07-2024 End: 10-07-2024 Follow-up encounter 10/07/2024 8:00 AM EDT [facility] Rheumatology [address] [place] [address] Lynne Ni MD [address] [place], [place] [id number] follow up visit Rheumatology Comment on above: follow up visit Start: 10-06-2024 End: 07-09-2025 25-hydroxyvitamin D3 [Mass/volume] in Serum or Plasma VITAMIN D 25 HYDROXY Lab Routine Vitamin D deficiency Expected: 10/06/2024 (Approximate), Expires: 07/09/2025 [facility] Comment on above: Expected: 10/06/2024 (Approximate), Expi res: 07/09/2025 Start: 10-06-2024 End: 07-09-2025 C reactive protein [Mass/volume] in Serum or Plasma C-REACTIVE PROTEIN Lab Routine Elevated sed rate Elevated C-reactive protein (CRP) Expected: 10/06/2024 (Approximate), Expires: 07/09/2025 [facility] Comment on above: Expected: 10/06/2024 (Approximate), Expi res: 07/09/2025 Start: 10-06-2024 End: 07-09-2025 CBC panel - Blood by Automated count COMPLETE BLOOD COUNT Lab Routine Anemia of chronic disease Expected: 10/06/2024 (Approximate), Expires: 07/09/2025 [facility] Comment on above: Expected: 10/06/2024 (Approximate), Expi res: 07/09/2025 Start: 10-06-2024 End: 07-09-2025 Comprehensive metabolic 2000 panel - Serum or Plasma COMPREHENSIVE METABOLIC PANEL Lab Routine Elevated LFTs Expected: 10/06/2024 (Approximate), Expires: 07/09/2025 [facility] Work Phone: Comment on above: Expected: 10/06/2024 (Approximate), Expi res: 07/09/2025 Start: 10-06-2024 End: 07-09-2025 Erythrocyte sedimentation rate SEDIMENTATION RATE, WESTERGREN Lab Routine Elevated sed rate Elevated C-reactive protein (CRP) Expected: 10/06/2024 (Approximate), Expires: 07/09/2025 [facility] Comment on above: Expected: 10/06/2024 (Approximate), Expi res: 07/09/2025 Start: 2024 End: 2024 ambulatory Hematology/Oncology Comment on above: IVIG q 4 weeks with B 12 inj and lab BENLYSTA - IVIG AND BENLYSTA AT LEAST 1 DAY APART FOR FUTURE APPTS REFILL- Benlysta- PA x 02/11/25- - LVM 09/20, 09/25, 09/27 Start: 10-02-2024 End: 10-02-2024 ambulatory 10/02/2024 9:00 AM EDT Infusion Center Hematology/Oncology [address] [place] [address] [place] [address] IVIG q 4 weeks with B 12 inj and lab Hematology/Oncology Comment on above: IVIG q 4 weeks with B 12 inj and lab Start: 09-28-2024 End: 09-28-2024 Specialty Pharmacy 09/28/2024 10:00 AM EDT Specialty Pharmacy [facility] [address] [facility] [id number] [place] [address] Pharmacist, [facility] [address] [place] [address] [place] [address] REFILL- Benlysta- PAx 02/11/25- urs - LVM 09/20, 09/25 [facility] Comment on above: REFILL- Benlysta- PAx 02/11/25- - LVM 09/20, 09/25 Start: 09-25-2024 End: 09-25-2024 Specialty Pharmacy 09/25/2024 10:15 AM EDT Specialty Pharmacy [facility] [address] [place] [address] Pharmacist, [facility] [address] [place] [address] [place] [address] REFILL- Benlysta- PAx 02/11/25- - LVM 09/20 [facility] Comment on above: REFILL- Benlysta- PAx 02/11/25- - LVM 09/20 Start: 09-20-2024 End: 09-20-2024 Specialty Pharmacy 09/20/2024 10:15 AM EDT Specialty Pharmacy [facility] [address] [place], [place] [id number] Pharmacist, [facility] [address] [place] [address] [address] [place] [id number] REFILL- Benlysta- PAx 02/11/25- - pend new [...] 09/06/2024 9:30 AM EDT Infusion Center Hematology/Oncology [address] [place] [address] [place] [address] 3 mo F/U-IVIG(slow infusion per pt request/B12 +/-IV iron Hematology/Oncology Comment on above: 3 mo F/U-IVIG(slow infusion per pt reque st/B12 +/-IV iron Start: 09-06-2024 End: 09-06-2024 Follow-up encounter Hematology/Oncology Comment on above: 3 month follow up IVIG for hypogammaglob ulinemia + b12 Start: 09-06-2024 End: 09-06-2024 Patient encounter procedure 09/06/2024 8:45 AM EDT Office Visit [facility] [address] [facility] [place] [address] 3 month follow up IVIG for hypogammaglobulinemia + b12 [facility] Comment on above: 3 month follow up IVIG for hypogammaglob ulinemia + b12 Start: 09-05-2024 End: 09-05-2024 Follow-up encounter Hematology/Oncology Comment on above: 3 month follow up IVIG for hypogammaglob ulinemia + b12 Start: 09-05-2024 End: 09-05-2024 Patient encounter procedure 09/05/2024 8:45 AM EDT Office Visit [facility] [address] [facility] [place] [address] 3 month follow up IVIG for hypogammaglobulinemia + b12 [facility] Comment on above: 3 month follow up IVIG for hypogammaglob ulinemia + b12 Start: 09-04-2024 End: 09-04-2024 Patient encounter procedure 09/04/2024 3:20 PM EDT Office Visit [facility] [address] [facility] [address] [place] [address] Gordo Barfield MD [address] [facility] [address] [place] [address] Arrived [facility] Comment on above: Arrived Start: 08-28-2024 End: 11-27-2024 CBC W Auto Differential panel - Blood COMPLETE BLOOD COUNT AND DIFFERENTIAL Lab Routine Vitamin B12 deficiency Other iron deficiency anemia Hypogammaglobulinemia (HCC) Expected: 08/28/2024, Expires: 11/27/2024 [facility] Work Phone: Comment on above: Expected: 08/28/2024, Expires: Start: 08-28-2024 End: 11-27-2024 Cobalamin (Vitamin B12) [Mass/volume] in Serum or Plasma VITAMIN B12 Lab Routine Vitamin B12 deficiency Other iron deficiency anemia Hypogammaglobulinemia (HCC) Expected: 08/28/2024, Expires: 11/27/2024 [facility] Comment on above: Expected: 08/28/2024, Expires: Start: 08-28-2024 End: 11-27-2024 Comprehensive metabolic 2000 panel - Serum or Plasma COMPREHENSIVE METABOLIC PANEL Lab Routine Vitamin B12 deficiency Other iron deficiency anemia Hypogammaglobulinemia (HCC) Expected: 08/28/2024, Expires: 11/27/2024 [facility] Comment on above: Expected: 08/28/2024, Expires: Start: 08-28-2024 End: 11-27-2024 Ferritin [Mass/volume] in Serum or Plasma FERRITIN Lab Routine Vitamin B12 deficiency Other iron deficiency anemia Hypogammaglobulinemia (HCC) Expected: 08/28/2024, Expires: 11/27/2024 [facility] Comment on above: Expected: 08/28/2024, Expires: Start: 08-28-2024 End: 11-27-2024 Folate [Mass/volume] in Serum or Plasma FOLATE, SERUM Lab Routine Vitamin B12 deficiency Other iron deficiency anemia Hypogammaglobulinemia (HCC) Expected: 08/28/2024, Expires: 11/27/2024 [facility] Comment on above: Expected: 08/28/2024, Expires: Start: 08-28-2024 End: 11-27-2024 IgG [Mass/volume] in Serum or Plasma IMMUNOGLOBULIN G Lab Routine Vitamin B12 deficiency Other iron deficiency anemia Hypogammaglobulinemia (HCC) Expected: 08/28/2024, Expires: 11/27/2024 [facility] Comment on above: Expected: 08/28/2024, Expires: Start: 08-28-2024 End: 11-27-2024 Iron and Iron binding capacity panel - Serum or Plasma IRON AND TIBC Lab Routine Vitamin B12 deficiency Other iron deficiency anemia Hypogammaglobulinemia (HCC) Expected: 08/28/2024, Expires: 11/27/2024 [facility] Comment on above: Expected: 08/28/2024, Expires: Start: 08-22-2024 End: 08-22-2024 Patient encounter procedure 08/22/2024 1:30 PM EDT Office Visit [facility] [address] [place] [address] Raj Kitchen MD [address] [place] [address] [facility] Start: 08-22-2024 End: 08-22-2024 Specialty Pharmacy 08/22/2024 10:15 AM EDT Specialty Pharmacy [facility] [address] [place] [id number] Pharmacist, [facility] [address] [place] [address] [place] [address] REFILL- Benlysta- PAx 02/11/25 [facility] 08/17 [facility] Comment on above: REFILL- Benlysta- PAx 02/11/25 [facility] 08/17 Start: 08-17-2024 End: 08-17-2024 Specialty Pharmacy 08/17/2024 10:00 AM EDT Specialty Pharmacy [facility] [address] [place] [phone] Pharmacist, [facility] [address] [place] [address] [place] [address] REFILL- Benlysta- PAx 02/11/25 [facility] Comment on above: REFILL- Benlysta- PAx 02/11/25 Start: 08-15-2024 End: 08-15-2024 Patient encounter procedure 08/15/2024 10:20 AM EDT Office Visit [facility] [address] [facility] [address] [place] [id number] Gordo Barfield MD [address] [facility] 130 [place] [address] [facility] Start: 08-08-2024 End: 08-08-2024 ambulatory 08/08/2024 9:30 AM EDT Infusion Center Hematology/Oncology [address] [place] [address] [place] [address] IVIG for hypogammaglobulinemia + b12 Hematology/Oncology Comment on above: IVIG for hypogammaglobulinemia + b12 Start: 08-01-2024 End: 08-01-2024 Patient encounter procedure 08/01/2024 10:30 AM EDT Office Visit [facility] [address] [place] [address] Bernabe English MD [address] [place] [address] [facility] Start: 07-25-2024 End: 07-25-2024 Specialty Pharmacy [facility] Comment on above: REFILL- Benlysta- PAx 02/11/25- Arrived Start: 07-20-2024 End: 07-20-2024 ambulatory 07/20/2024 11:30 AM EST [facility] Infectious Disease [address] [place] [address] Alhaji Head DO [address] [place] [address] Positive blood cultures [R78.81] Infectious Disease Comment on above: Positive blood cultures [R78.81] Start: 07-20-2024 End: 07-20-2024 Patient encounter procedure 07/20/2024 11:30 AM EST Office Visit Infectious Disease [address] [place] [id number] Alhaji Head DO [address] [place] [address] Positive blood cultures [R78.81] Infectious Disease Comment on above: Positive blood cultures [R78.81] Start: 07-19-2024 [facility] Start: 07-13-2024 End: 07-13-2024 Patient encounter procedure 07/13/2024 9:20 AM EST Office Visit [facility] [address] [facility] [address] [place] [phone] Lois Holm MD 703 [facility] [address] [place] [address] [facility] Start: 07-12-2024 End: 07-12-2024 Patient encounter procedure 07/12/2024 2:40 PM EST Office Visit Otolaryngology [address] [place] [address] Marky Barnes PA-C [address] [place] [address] Recurrent Thrush. Otolaryngology Comment on above: Recurrent Thrush. Start: 07-11-2024 End: 07-11-2024 ambulatory 07/11/2024 9:30 AM EST Infusion Center Hematology/Oncology [address] [place] [address] [place] [address] IVIG for hypogammaglobulinemia + b12 Hematology/Oncology Comment on above: IVIG for hypogammaglobulinemia + b12 Start: 07-03-2024 End: 04-02-2025 25-hydroxyvitamin D3 [Mass/volume] in Serum or Plasma VITAMIN D 25 HYDROXY Lab Routine Vitamin D deficiency Expected: 07/03/2024 (Approximate), Expires: 04/02/2025 [facility] Comment on above: Expected: 07/03/2024 (Approximate), Expi res: 04/02/2025 Start: 07-03-2024 End: 04-02-2025 C reactive protein [Mass/volume] in Serum or Plasma C-REACTIVE PROTEIN Lab Routine Elevated sed rate Elevated C-reactive protein (CRP) Expected: 07/03/2024 (Approximate), Expires: 04/02/2025 [facility] Comment on above: Expected: 07/03/2024 (Approximate), Expi res: 04/02/2025 Start: 07-03-2024 End: 04-02-2025 CBC panel - Blood by Automated count COMPLETE BLOOD COUNT Lab Routine Anemia of chronic disease Expected: 07/03/2024 (Approximate), Expires: 04/02/2025 [facility] Comment on above: Expected: 07/03/2024 (Approximate), Expi res: 04/02/2025 Start: 07-03-2024 End: 04-02-2025 Comprehensive metabolic 2000 panel - Serum or Plasma COMPREHENSIVE METABOLIC PANEL Lab Routine Elevated LFTs Expected: 07/03/2024 (Approximate), Expires: 04/02/2025 [facility] Work Phone: Comment on above: Expected: 07/03/2024 (Approximate), Expi res: 04/02/2025 Start: 07-03-2024 End: 04-02-2025 Erythrocyte sedimentation rate SEDIMENTATION RATE, WESTERGREN Lab Routine Elevated sed rate Elevated C-reactive protein (CRP) Expected: 07/03/2024 (Approximate), Expires: 04/02/2025 [facility] Comment on above: Expected: 07/03/2024 (Approximate), Expi res: 04/02/2025 Start: 06-29-2024 End: 06-29-2024 Specialty Pharmacy 06/29/2024 10:00 AM EST Specialty Pharmacy [facility] [address] [place] [address] [place] [address] Pharmacist, [facility] [address] [place] [address] [place] [phone] REFILL- Benlysta- PAx 02/11/25 [facility] Comment on above: REFILL- Benlysta- PAx 02/11/25 Start: 06-26-2024 End: 06-26-2024 Nursing evaluation of patient and report 06/26/2024 9:45 AM EST Nurse Visit Hematology/Oncology [address] [facility] [place] [address] Cele Marshall Nurse Dre [address] [facility] [place] [address] B12 Hematology/Oncology Comment on above: B12 Start: 06-26-2024 End: 06-26-2024 ambulatory Hematology/Oncology Comment on above: RTC 3 month IVIG for hypogammagl obulinemia Start: 06-26-2024 End: 06-26-2024 Patient encounter procedure 06/26/2024 8:45 AM EST Office Visit [facility] [address] [facility] [place] [address] labs [facility] Comment on above: labs Start: 06-14-2024 End: 06-14-2024 Nursing evaluation of patient and report [facility] Comment on above: Abdominal Pain/Diarrhea/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 order ed/Patient has prep thru MyChart//cc SIBO - Abdominal Gus n/Diarrhea/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 ordered/Patient has prep thru MyChart//cc Order in Scanned Documents Start: 06-13-2024 End: 09-12-2024 Cobalamin (Vitamin B12) [Mass/volume] in Serum or Plasma [facility] Comment on above: Expected: 06/13/2024, Expires: Start: 06-13-2024 End: 09-12-2024 Ferritin [Mass/volume] in Serum or Plasma [facility] Work Phone: Comment on above: Expected: 06/13/2024, Expires: Start: 06-13-2024 End: 09-12-2024 Folate [Mass/volume] in Serum or Plasma [facility] Comment on above: Expected: 06/13/2024, Expires: 5 Start: 06-13-2024 End: 09-12-2024 Iron and Iron binding capacity panel - Serum or Plasma [facility] Comment on above: Expected: 06/13/2024, Expires: 5 Start: 06-13-2024 End: 06-13-2024 Nursing evaluation of patient and report 06/13/2024 9:45 AM EST Nurse Visit Hematology/Oncology [address] [facility] [place] [address] Cele Marshall Nurse Dre [address] [facility] [place] [address] B12 Hematology/Oncology Comment on above: B12 Start: 06-13-2024 End: 06-13-2024 ambulatory Hematology/Oncology Comment on above: RTC 3 month IVIG for hypogammagl obulinemia Start: 06-13-2024 End: 06-13-2024 Patient encounter procedure 06/13/2024 8:45 AM EST Office Visit [facility] [address] [facility] [place] [address] labs [facility] Comment on above: labs [...] 9:30 AM EST Nurse Visit Hematology/Oncology [address] [facility] [place] [address] Cele Marshall Nurse Dre [address] [facility] [place] [address] B12 Hematology/Oncology Comment on above: B12 Start: 05-19-2024 End: 05-19-2024 ambulatory 05/19/2024 9:30 AM EST Infusion Center Hematology/Oncology [address] [facility] [place] [address] IVIG for hypogammaglobulinemia Hematology/Oncology Comment on above: IVIG for hypogammaglobulinemia Start: 05-12-2024 End: 05-12-2024 Specialty Pharmacy 05/12/2024 10:00 AM EST Specialty [facility]acy [facility] [place] [address] Pharmacist, [facility] [address] [place] [address] [place] [address] REFILL- Benlysta- PAx 02/11/25 [facility] Comment on above: REFILL- Benlysta- PAx 02/11/25 Start: 04-28-2024 End: 04-28-2025 US.doppler Extremity arteries - bilateral for physiologic artery study Vas art doppler lwr bilat mult lev/PVR Vascular Ultrasound Routine Peripheral vascular disease, unspecified ([facility]) Cold extremities Systemic lupus erythematosus ([facility]) Expected: 04/28/2024, Expires: 04/28/2025 [facility] Work Phone: Comment on above: Expected: 04/28/2024, Expires: Start: 04-24-2024 End: 04-24-2024 Nursing evaluation of patient and report 04/24/2024 9:30 AM EST Nurse Visit Hematology/Oncology [address] [place] [address] Cele Marshall Nurse Dre [address] [place] [address] B12 Hematology/Oncology Comment on above: B12 Start: 04-18-2024 End: 04-18-2024 Nursing evaluation of patient and report [facility] Comment on above: [...] 03-28-2024 End: 03-28-2024 ambulatory 03/28/2024 1:00 PM [facility] Hematology/Oncology [address] [place] [address] Vera Najera MD [address] [place] [address] 13 wk virtual after labs last week Hematology/Oncology Comment on above: 13 wk virtual after labs last week Start: 03-23-2024 End: 03-23-2025 aPTT in Blood by Coagulation assay APTT Lab Routine Menorrhagia with regular cycle Expected: 03/23/2024 (Approximate), Expires: 03/23/2025 [facility] Comment on above: Expected: 03/23/2024 (Approximate), Expi res: 03/23/2025 Start: 03-23-2024 End: 03-23-2025 US for US PELVIS-TRANSVAG IF INDICATED Imaging Routine Menorrhagia with regular cycle Expected: 03/23/2024 (Approximate), Expires: 03/23/2025 [facility] Comment on above: Expected: 03/23/2024 (Approximate), Expi res: 03/23/2025 Start: 03-21-2024 End: 03-21-2024 Nursing evaluation of patient and report 03/21/2024 11:45 AM EDT Nurse Visit Hematology/Oncology [address] [place] [address] Cele Marshall Nurse Dre [address] [place] [address] b12 Hematology/Oncology Comment on above: b12 Start: 03-21-2024 End: 03-21-2024 Patient encounter procedure 03/21/2024 11:15 AM EDT Office Visit [facility] [address] [place] [address] LAb [facility] Comment on above: LAb Start: 03-20-2024 End: 12-29-2024 25-hydroxyvitamin D3 [Mass/volume] in Serum or Plasma VITAMIN D 25 HYDROXY Lab Routine Vitamin D deficiency Expected: 03/20/2024 (Approximate), Expires: 12/29/2024 [facility] Comment on above: Expected: 03/20/2024 (Approximate), Expi res: 12/29/2024 Start: 03-20-2024 End: 12-29-2024 BLOOD TB SCREEN BLOOD TB SCREEN Lab Routine Screening-pulmonary TB Expected: 03/20/2024 (Approximate), Expires: 12/29/2024 [facility] Comment on above: Expected: 03/20/2024 (Approximate), Expi res: 12/29/2024 Start: 03-20-2024 End: 12-29-2024 C reactive protein [Mass/volume] in Serum or Plasma C-REACTIVE PROTEIN Lab Routine Elevated C-reactive protein (CRP) Elevated sed rate Expected: 03/20/2024 (Approximate), Expires: 12/29/2024 [facility] Comment on above: Expected: 03/20/2024 (Approximate), Expi res: 12/29/2024 Start: 03-20-2024 End: 06-19-2024 CBC W Auto Differential panel - Blood COMPLETE BLOOD COUNT AND DIFFERENTIAL Lab Routine Megaloblastic anemia due to vitamin B12 deficiency Elevated sed rate Obstructive sleep apnea syndrome Expected: 03/20/2024 (Approximate), Expires: 06/19/2024 [facility] Comment on above: Expected: 03/20/2024 (Approximate), Expi res: 06/19/2024 Start: 03-20-2024 End: 06-19-2024 Cobalamin (Vitamin B12) [Mass/volume] in Serum or Plasma VITAMIN B12 Lab Routine Megaloblastic anemia due to vitamin B12 deficiency Elevated sed rate Obstructive sleep apnea syndrome Expected: 03/20/2024 (Approximate), Expires: 06/19/2024 [facility] Comment on above: Expected: 03/20/2024 (Approximate), Expi res: 06/19/2024 Start: 03-20-2024 End: 06-19-2024 Comprehensive metabolic 2000 panel - Serum or Plasma COMPREHENSIVE METABOLIC PANEL Lab Routine Megaloblastic anemia due to vitamin B12 deficiency Elevated sed rate Obstructive sleep apnea syndrome Expected: 03/20/2024 (Approximate), Expires: 06/19/2024 [facility] Work Phone: Comment on above: Expected: 03/20/2024 (Approximate), Expi res: 06/19/2024 Start: 03-20-2024 End: 12-29-2024 Erythrocyte sedimentation rate SEDIMENTATION RATE, WESTERGREN Lab Routine Elevated C-reactive protein (CRP) Elevated sed rate Expected: 03/20/2024 (Approximate), Expires: 12/29/2024 [facility] Work Phone: Comment on above: Expected: 03/20/2024 (Approximate), Expi res: 12/29/2024 Start: 03-20-2024 End: 06-19-2024 Ferritin [Mass/volume] in Serum or Plasma FERRITIN Lab Routine Megaloblastic anemia due to vitamin B12 deficiency Elevated sed rate Obstructive sleep apnea syndrome Expected: 03/20/2024 (Approximate), Expires: 06/19/2024 [facility] Comment on above: Expected: 03/20/2024 (Approximate), Expi res: 06/19/2024 Start: 03-20-2024 End: 06-19-2024 Folate [Mass/volume] in Serum or Plasma FOLATE, SERUM Lab Routine Megaloblastic anemia due to vitamin B12 deficiency Elevated sed rate Obstructive sleep apnea syndrome Expected: 03/20/2024 (Approximate), Expires: 06/19/2024 [facility] Comment on above: Expected: 03/20/2024 (Approximate), Expi res: 06/19/2024 Start: 03-20-2024 End: 06-19-2024 IMMUNOGLOBULINS,IGG,IGA,IG M IMMUNOGLOBULINS,IGG,IGA,IG M Lab Routine Megaloblastic anemia due to vitamin B12 deficiency Elevated sed rate Obstructive sleep apnea syndrome Expected: 03/20/2024 (Approximate), Expires: 06/19/2024 [facility] Comment on above: Expected: 03/20/2024 (Approximate), Expi res: 06/19/2024 Start: 03-20-2024 End: 06-19-2024 Iron and Iron binding capacity panel - Serum or Plasma IRON AND TIBC Lab Routine Megaloblastic anemia due to vitamin B12 deficiency Elevated sed rate Obstructive sleep apnea syndrome Expected: 03/20/2024 (Approximate), Expires: 06/19/2024 [facility] Comment on above: Expected: 03/20/2024 (Approximate), Expi res: 06/19/2024 Start: 03-18-2024 End: 03-18-2024 Patient encounter procedure 03/18/2024 9:00 AM EDT [facility] Rheumatology [address] [place], [place] [id number] Lynne Ni MD [address] [place], [place] [id number] May offer 03/18/24 Sat REJ 4th floor in person/virtual/phone for lupus Rheumatology Comment on above: May offer 03/18/24 Sat REJ 4th floor in person/virtual/phone for lupus Start: 03-16-2024 Patient referral [facility] Work Phone: Start: 03-16-2024 End: 05-16-2025 US Breast - bilateral Bilateral breast US complete Imaging Routine Nipple discharge Expected: 03/16/2024, Expires: 05/16/2025 [facility] Work Phone: Comment on above: Expected: 03/16/2024, [...] AM EDT Nurse Visit Hematology/Oncology [address] [facility] [place] [address] Cele Marshall Nurse Dre [address] [facility] [place] [address] b12 Hematology/Oncology Comment on above: b12 Start: 02-22-2024 End: 02-22-2024 Patient encounter procedure 02/22/2024 11:15 AM EDT Office Visit [facility] [address] [facility] [place] [address] LAb [facility] Comment on above: LAb Start: 02-21-2024 End: 02-21-2024 Nursing evaluation of patient and report 02/21/2024 10:45 AM EDT Nurse Visit Hematology/Oncology [address] [place] [address] Cele Marshall Nurse Dre [address] [facility] [place] [address] b12 Hematology/Oncology Comment on above: b12 Start: 02-21-2024 End: 02-21-2024 Patient encounter procedure 02/21/2024 10:30 AM EDT Office Visit [facility] [address] [place] [address] LAb [facility] Comment on above: LAb Start: 02-16-2024 [facility] Start: 02-14-2024 End: 02-14-2024 Follow-up encounter Neurology Comment on above: Cpap follow up REFILL- Benlysta- PA x 02/04/24- NCA , [place] 02/23 Start: 02-09-2024 End: 02-09-2024 Patient encounter procedure 02/09/2024 8:00 AM EDT Office Visit [facility] [address] [address] Zita Cuellar, CORRUGATOR OPERATOR HELPER [address] [place] [address] [facility] NE[facility]O [address] Start: 01-27-2024 End: 04-27-2024 Bacteria identified in Blood by Culture BLOOD CULTURE Microbiology Routine Pseudomonas infection Expected: 01/27/2024, Expires: 04/27/2024 [facility] Work Phone: Comment on above: Expected: 01/27/2024, Expires: Start: 01-27-2024 End: 01-27-2024 Follow-up encounter 01/27/2024 10:00 AM EDT [facility] Infectious Disease [address] [facility] [place] [address] Alhaji Head DO [facility] [address] [place] [address] follow up Infectious Disease Comment on above: follow up Start: 01-25-2024 End: 01-25-2024 Nursing evaluation of patient and report Hematology/Oncology Comment on above: b12 B12(change date) Start: 01-25-2024 End: 01-25-2024 Patient encounter procedure [facility] Comment on above: LAb NO LAB ORDERS LAb Start: 01-24-2024 Influenza [facility] Comment on above: Postponed from 01/22/2023 (Patient Refus ed) Start: 01-23-2024 Covid-19 Vaccine ( season) Covid-19 Vaccine ( season) [facility] Start: 01-23-2024 Covid-19 Vaccine ( season) Covid-19 Vaccine ( season) [facility] Start: 01-23-2024 Influenza vaccination [facility] Start: 01-20-2024 End: 01-20-2024 Specialty Pharmacy [facility] Comment on above: refill - benlysta- NCA - pa exp: 02/04/24- 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 Start: 12-27-2023 End: 12-27-2023 Nursing evaluation of patient and report 12/27/2023 12:00 PM EDT Nurse Visit Hematology/Oncology [address] [place] [address] Cele Marshall Nurse Dre [address] [place] [address] b12 Hematology/Oncology Comment on above: b12 Start: 12-27-2023 End: 12-27-2023 Follow-up encounter 12/27/2023 11:30 AM EDT Visit (SP) Office Hematology/Oncology [address] [place] [address] Neda Hill PA-C [address] [place] [address] 13 week follow up, labs 1 week before Hematology/Oncology Comment on above: 13 week follow up, labs 1 week before Start: 12-27-2023 End: 12-27-2023 Patient encounter procedure 12/27/2023 11:15 AM EDT Office Visit [facility] [address] [place] [address] LAb [facility] Comment on above: LAb Start: 12-13-2023 End: 12-13-2023 Specialty Pharmacy 12/13/2023 10:00 AM EDT Specialty Pharmacy [facility] [address] [place] [address] [id number] [place] [address] Pharmacist, [facility] [address] [place] [address] [place] [id number] refill - benlysta- NCA - pa exp: 02/04/24- [facility] Comment on above: refill - benlysta- NCA - pa exp: 02/04/24- Start: 12-10-2023 End: 12-10-2023 Follow-up encounter 12/10/2023 10:45 AM EDT Visit (SP) Office Hematology/Oncology [address] [place] [address] Vera Najera MD [address] [place] [address] 13 week follow up, labs 1 week before Hematology/Oncology Comment on above: 13 week follow up, labs 1 week before Start: 12-04-2023 End: 09-03-2024 25-hydroxyvitamin D3 [Mass/volume] in Serum or Plasma VITAMIN D 25 HYDROXY Lab Routine Vitamin D deficiency Expected: 12/04/2023 (Approximate), Expires: 09/03/2024 [facility] Work Phone: Comment on above: Expected: 12/04/2023 (Approximate), Expi res: 09/03/2024 Start: 12-04-2023 End: 09-03-2024 C reactive protein [Mass/volume] in Serum or Plasma C-REACTIVE PROTEIN Lab Routine Elevated sed rate Elevated C-reactive protein (CRP) Expected: 12/04/2023 (Approximate), Expires: 09/03/2024 [facility] Work Phone: Comment on above: Expected: 12/04/2023 (Approximate), Expi res: 09/03/2024 Start: 12-04-2023 End: 09-03-2024 CBC panel - Blood by Automated count COMPLETE BLOOD COUNT Lab Routine Anemia of chronic disease Expected: 12/04/2023 (Approximate), Expires: 09/03/2024 [facility] Work Phone: Comment on above: Expected: 12/04/2023 (Approximate), Expi res: 09/03/2024 Start: 12-04-2023 End: 09-03-2024 Comprehensive metabolic 2000 panel - Serum or Plasma COMPREHENSIVE METABOLIC PANEL Lab Routine Elevated LFTs Expected: 12/04/2023 (Approximate), Expires: 09/03/2024 [facility] Work Phone: Comment on above: Expected: 12/04/2023 (Approximate), Expi res: 09/03/2024 Start: 12-04-2023 End: 09-03-2024 Erythrocyte sedimentation rate SEDIMENTATION RATE, WESTERGREN Lab Routine Elevated sed rate Elevated C-reactive protein (CRP) Expected: 12/04/2023 (Approximate), Expires: 09/03/2024 [facility] Work Phone: Comment on above: Expected: 12/04/2023 (Approximate), Expi res: 09/03/2024 Start: 12-03-2023 End: 12-03-2023 Nursing evaluation of patient and report 12/03/2023 11:00 AM EDT Nurse Visit Hematology/Oncology [address] [place] [address] Cele Marshall Nurse Dre [address] [place] [address] b12 Hematology/Oncology Comment on above: b12 Start: 12-03-2023 End: 12-03-2023 Patient encounter procedure 12/03/2023 10:45 AM EDT Office Visit [facility] [address] [place] [address] lab [facility] Comment on above: lab Start: 12-02-2023 End: 09-08-2024 CBC W Auto Differential panel - Blood COMPLETE BLOOD COUNT AND DIFFERENTIAL Lab Routine Megaloblastic anemia due to vitamin B12 deficiency High total serum IgM Expected: 12/02/2023 (Approximate), Expires: 09/08/2024 [facility] Work Phone: Comment on above: Expected: 12/02/2023 (Approximate), Expi res: 09/08/2024 Start: 12-02-2023 End: 09-08-2024 Cobalamin (Vitamin B12) [Mass/volume] in Serum or Plasma VITAMIN B12 Lab Routine Megaloblastic anemia due to vitamin B12 deficiency High total serum IgM Expected: 12/02/2023 (Approximate), Expires: 09/08/2024 [facility] Work Phone: Comment on above: Expected: 12/02/2023 (Approximate), Expi res: 09/08/2024 Start: 12-02-2023 End: 09-08-2024 Comprehensive metabolic 2000 panel - Serum or Plasma COMPREHENSIVE METABOLIC PANEL Lab Routine Megaloblastic anemia due to vitamin B12 deficiency High total serum IgM Expected: 12/02/2023 (Approximate), Expires: 09/08/2024 [facility] Work Phone: Comment on above: Expected: 12/02/2023 (Approximate), Expi res: 09/08/2024 Start: 12-02-2023 End: 03-02-2024 Erythrocyte sedimentation rate SEDIMENTATION RATE, WESTERGREN Lab Routine Megaloblastic anemia due to vitamin B12 deficiency High total serum IgM Expected: 12/02/2023 (Approximate), Expires: 03/02/2024 [facility] Work Phone: Comment on above: Expected: 12/02/2023 (Approximate), Expi res: 03/02/2024 Start: 12-02-2023 End: 09-08-2024 Ferritin [Mass/volume] in Serum or Plasma FERRITIN Lab Routine Megaloblastic anemia due to vitamin B12 deficiency High total serum IgM Expected: 12/02/2023 (Approximate), Expires: 09/08/2024 [facility] Work Phone: Comment on above: Expected: 12/02/2023 (Approximate), Expi res: 09/08/2024 Start: 12-02-2023 End: 09-08-2024 Folate [Mass/volume] in Serum or Plasma FOLATE, SERUM Lab Routine Megaloblastic anemia due to vitamin B12 deficiency High total serum IgM Expected: 12/02/2023 (Approximate), Expires: 09/08/2024 [facility] Work Phone: Comment on above: Expected: 12/02/2023 (Approximate), Expi res: 09/08/2024 Start: 12-02-2023 End: 03-02-2024 IgA [Mass/volume] in Serum or Plasma IMMUNOGLOBULIN A Lab Routine Megaloblastic anemia due to vitamin B12 deficiency High total serum IgM Expected: 12/02/2023 (Approximate), Expires: 03/02/2024 [facility] Work Phone: Comment on above: Expected: 12/02/2023 (Approximate), Expi res: 03/02/2024 Start: 12-02-2023 End: 03-02-2024 IgE [Units/volume] in Serum or Plasma IMMUNOGLOBULIN E Lab Routine Megaloblastic anemia due to vitamin B12 deficiency High total serum IgM Expected: 12/02/2023 (Approximate), Expires: 03/02/2024 [facility] Work Phone: Comment on above: Expected: 12/02/2023 (Approximate), Expi res: 03/02/2024 Start: 12-02-2023 End: 03-02-2024 IgG [Mass/volume] in Serum or Plasma IMMUNOGLOBULIN G Lab Routine Megaloblastic anemia due to vitamin B12 deficiency High total serum IgM Expected: 12/02/2023 (Approximate), Expires: 03/02/2024 [facility] Work Phone: Comment on above: Expected: 12/02/2023 (Approximate), Expi res: 03/02/2024 Start: 12-02-2023 End: 03-02-2024 IgM [Mass/volume] in Serum or Plasma IMMUNOGLOBULIN M Lab Routine Megaloblastic anemia due to vitamin B12 deficiency High total serum IgM Expected: 12/02/2023 (Approximate), Expires: 03/02/2024 [facility] Work Phone: Comment on above: Expected: 12/02/2023 (Approximate), Expi res: 03/02/2024 Start: 12-02-2023 End: 09-08-2024 Iron and Iron binding capacity panel - Serum or Plasma IRON AND TIBC Lab Routine Megaloblastic anemia due to vitamin B12 deficiency High total serum IgM Expected: 12/02/2023 (Approximate), Expires: 09/08/2024 [facility] Work Phone: Comment on above: Expected: 12/02/2023 (Approximate), Expi res: 09/08/2024 Start: 11-29-2023 End: 11-29-2023 Nursing evaluation of patient and report 11/29/2023 2:15 PM EDT Nurse Visit Hematology/Oncology [address] [place] [address] [place] [address] Cele Marshall Nurse Dre [address] [facility] [place] [address] b12 Hematology/Oncology Comment on above: b12 Start: 11-15-2023 End: 11-15-2023 Specialty Pharmacy 11/15/2023 10:00 AM EDT Specialty Pharmacy [facility] [address] [place] [id number] Pharmacist, [facility] [address] [place] [address] [place] [address] refill - benlysta- NCA - pa exp: 02/04/24- [facility] Comment on above: refill - benlysta- NCA - pa exp: 02/04/24- Start: 10-29-2023 End: 10-29-2023 Nursing evaluation of patient and report 10/29/2023 11:00 AM EDT Nurse Visit Hematology/Oncology [address] [facility] [place] [address] Cele Marshall Nurse Dre [address] [facility] [place] [address] b12 Hematology/Oncology Comment on above: b12 Start: 10-15-2023 End: 10-15-2023 Specialty Pharmacy 10/15/2023 10:00 AM EDT Specialty Pharmacy [facility] [address] [place] [id number] Pharmacist, [facility] [address] [place] [address] [place] [address] refill - benlysta-ursdays- pa exp: 02/04/24-l/m 10/11 [facility] Comment on above: refill - benlysta-Thursdays- pa exp: 01/22 08/14-l/m 10/11 Start: 10-12-2023 End: 10-12-2023 Specialty Pharmacy 10/12/2023 10:00 AM EDT Specialty Pharmacy [facility] [address] [place] [address], [place] [address] Pharmacist, [facility] [address] [place] [address] [place] [address] refill - benlysta-Thursdays- pa exp: 02/04/24- [facility] Comment on above: refill - benlysta-Thursdays- pa exp: 01/22 08/14- Start: 10-05-2023 End: 10-05-2023 Patient encounter procedure 10/05/2023 8:00 AM EDT [facility] Rheumatology [address] [place] [address] Lynne Ni MD [address] [facility] [place] [address] 6 mo f/u for Lupus Rheumatology Comment on above: 6 mo f/u for Lupus Start: 10-01-2023 End: 10-01-2023 Nursing evaluation of patient and report 10/01/2023 11:00 AM EDT Nurse Visit Hematology/Oncology [address] [facility] [facility] [place] [address] Cele Marshall Nurse Dre [address] [facility] [facility] [place] [address] b12 Hematology/Oncology Comment on above: b12 Start: 09-16-2023 End: 09-16-2023 Specialty Pharmacy 09/16/2023 10:00 AM EDT Specialty Pharmacy [facility] [address] [place] [id number] Pharmacist, [facility] [address] [place] [address] [place] [address] refill - benlysta-Thursdays- pa exp: 02/04/24-lvm [facility] Comment on above: refill - benlysta-Thursdays- pa exp: 01/22 08/14-lvm Start: 09-13-2023 End: 09-13-2023 Patient encounter procedure 09/13/2023 9:00 AM EDT Office Visit [facility] [address] [place] [phone] Kade Richardson MD [address] [facility] [address] [place] [address] [facility] Start: 07-19-2023 End: 07-19-2023 Patient encounter procedure [facility] Start: 07-15-2023 End: 07-15-2023 Patient encounter procedure 07/15/2023 10:50 AM EST Office Visit [facility] DERM [address] [place] [address] Bernabe English MD [address] [place] [address] [facility] Start: 07-06-2023 End: 07-06-2023 Patient encounter procedure 07/06/2023 2:30 PM EST Office Visit [facility]O [address] [facility] [address] [place] [phone] Kade Richardson MD [address] [facility] [address] [place] [address] [facility] NEURO [address] Start: 07-06-2023 End: 07-06-2024 Protein electrophoresis, serum Protein electrophoresis, serum Lab Routine Autoimmune disease (CMS/HCC) Autonomic dysfunction Expected: 07/06/2023 (Approximate), Expires: 07/06/2024 [facility] Work Phone: Comment on above: Expected: 07/06/2023 (Approximate), Expi res: 07/06/2024 Start: 07-06-2023 End: 07-06-2024 Protein electrophoresis, urine Protein electrophoresis, urine Lab Routine Autoimmune disease (CMS/HCC) Autonomic dysfunction Expected: 07/06/2023 (Approximate), Expires: 07/06/2024 [facility] Comment on above: Expected: 07/06/2023 (Approximate), Expi res: 07/06/2024 Start: 06-09-2023 End: 06-09-2024 Holter monitor study 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 Or 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 Cardiac Services Routine Irregular heart rate Expected: 06/09/2023 (Approximate), Expires: 06/09/2024 [facility] Work Phone: Comment on above: Expected: 06/09/2023 (Approximate), Expi res: 06/09/2024 Start: 06-09-2023 End: 06-09-2024 Lipid 1996 panel - Serum or Plasma Lipid Panel Lab Routine Primary hypertension Expected: 06/09/2023 (Approximate), Expires: 06/09/2024 [facility] Work Phone: Comment on above: Expected: 06/09/2023 (Approximate), Expi res: 06/09/2024 Start: 06-09-2023 End: 06-09-2024 Thyrotropin [Units/volume] in Serum or Plasma Thyroid Stimulating Hormone Lab Routine Irregular heart rate Expected: 06/09/2023 (Approximate), Expires: 06/09/2024 [facility] Work Phone: Comment on above: Expected: 06/09/2023 (Approximate), Expi res: 06/09/2024 Start: 06-09-2023 End: 06-09-2024 Thyroxine (T4) free [Mass/volume] in Serum or Plasma Thyroxine, Free Lab Routine Irregular heart rate Expected: 06/09/2023 (Approximate), Expires: 06/09/2024 [facility] Work Phone: Comment on above: Expected: 06/09/2023 (Approximate), Expi res: 06/09/2024 Start: 06-09-2023 End: 06-09-2025 US Heart Transthoracic Transthoracic Echo (TTE) Complete Echocardiography Routine Irregular heart rate Obstructive sleep apnea syndrome Expected: 06/09/2023 (Approximate), Expires: 06/09/2025 [facility] Service Area Work Phone: Comment on above: Expected: 06/09/2023 (Approximate), Expi res: 06/09/2025 Start: 04-25-2023 End: 01-25-2024 25-hydroxyvitamin D3 [Mass/volume] in Serum or Plasma VITAMIN D 25 HYDROXY Lab Routine Vitamin D deficiency Expected: 04/25/2023 (Approximate), Expires: 01/25/2024 [facility] Work Phone: Comment on above: Expected: 04/25/2023 (Approximate), Expi res: 01/25/2024 Start: 04-25-2023 End: 01-25-2024 C reactive protein [Mass/volume] in Serum or Plasma C-REACTIVE PROTEIN (CRP) Lab Routine Elevated sed rate Elevated C-reactive protein (CRP) Expected: 04/25/2023 (Approximate), Expires: 01/25/2024 [facility] Work Phone: Comment on above: Expected: 04/25/2023 (Approximate), Expi res: 01/25/2024 Start: 04-25-2023 End: 01-25-2024 CBC panel - Blood by Automated count CBC Lab Routine Anemia of chronic disease Expected: 04/25/2023 (Approximate), Expires: 01/25/2024 [facility] Work Phone: Comment on above: Expected: 04/25/2023 (Approximate), Expi res: 01/25/2024 Start: 04-25-2023 End: 01-25-2024 Comprehensive metabolic 2000 panel - Serum or Plasma COMP METABOLIC PANEL Lab Routine Elevated LFTs Expected: 04/25/2023 (Approximate), Expires: 01/25/2024 [facility] Work Phone: Comment on above: Expected: 04/25/2023 (Approximate), Expi res: 01/25/2024 Start: 04-25-2023 End: 01-25-2024 Erythrocyte sedimentation rate SED RATE WESTERGREN Lab Routine Elevated sed rate Elevated C-reactive protein (CRP) Expected: 04/25/2023 (Approximate), Expires: 01/25/2024 [facility] Work Phone: Comment on above: Expected: 04/25/2023 (Approximate), Expi res: 01/25/2024 Start: 04-20-2023 COVID-19 Vaccine (4 - Pfizer risk series) COVID-19 Vaccine (4 - Pfizer risk series) [facility] Start: 04-20-2023 Covid-19 Vaccine ( season) Covid-19 Vaccine () [facility] Start: 04-20-2023 Covid-19 Vaccine ( season) Covid-19 Vaccine () [facility] Start: 04-16-2023 End: 02-20-2024 CBC W Auto Differential panel - Blood CBC + DIFF Lab Routine Megaloblastic anemia due to vitamin B12 deficiency Elevated sed rate Chronic fatigue and malaise High total serum IgM JOSE RAFAEL (obstructive sleep apnea) Expected: 04/16/2023 (Approximate), Expires: 02/20/2024 [facility] Work Phone: Comment on above: Expected: 04/16/2023 (Approximate), Expi res: 02/20/2024 Start: 04-16-2023 End: 02-20-2024 Cobalamin (Vitamin B12) [Mass/volume] in Serum or Plasma VITAMIN B12 BLOOD Lab Routine Megaloblastic anemia due to vitamin B12 deficiency Elevated sed rate Chronic fatigue and malaise High total serum IgM JOSE RAFAEL (obstructive sleep apnea) Expected: 04/16/2023 (Approximate), Expires: 02/20/2024 [facility] Work Phone: Comment on above: Expected: 04/16/2023 (Approximate), Expi res: 02/20/2024 Start: 04-16-2023 End: 02-20-2024 Comprehensive metabolic 2000 panel - Serum or Plasma COMP METABOLIC PANEL Lab Routine Megaloblastic anemia due to vitamin B12 deficiency Elevated sed rate Chronic fatigue and malaise High total serum IgM JOSE RAFAEL (obstructive sleep apnea) Expected: 04/16/2023 (Approximate), Expires: 02/20/2024 [facility] Work Phone: Comment on above: Expected: 04/16/2023 (Approximate), Expi res: 02/20/2024 Start: 04-16-2023 End: 02-20-2024 Ferritin [Mass/volume] in Serum or Plasma FERRITIN BLD Lab Routine Megaloblastic anemia due to vitamin B12 deficiency Elevated sed rate Chronic fatigue and malaise High total serum IgM JOSE RAFAEL (obstructive sleep apnea) Expected: 04/16/2023 (Approximate), Expires: 02/20/2024 [facility] Work Phone: Comment on above: Expected: 04/16/2023 (Approximate), Expi res: 02/20/2024 Start: 04-16-2023 End: 02-20-2024 Folate [Mass/volume] in Serum or Plasma FOLATE SERUM Lab Routine Megaloblastic anemia due to vitamin B12 deficiency Elevated sed rate Chronic fatigue and malaise High total serum IgM JOSE RAFAEL (obstructive sleep apnea) Expected: 04/16/2023 (Approximate), Expires: 02/20/2024 [facility] Work Phone: Comment on above: Expected: 04/16/2023 (Approximate), Expi res: 02/20/2024 Start: 04-16-2023 End: 02-20-2024 Iron and Iron binding capacity panel - Serum or Plasma IRON + TIBC Lab Routine Megaloblastic anemia due to vitamin B12 deficiency Elevated sed rate Chronic fatigue and malaise High total serum IgM JOSE RAFAEL (obstructive sleep apnea) Expected: 04/16/2023 (Approximate), Expires: 02/20/2024 [facility] Work Phone: Comment on above: Expected: 04/16/2023 (Approximate), Expi res: 02/20/2024 Start: 03-23-2023 COVID-19 Vaccine (3 - Pfizer risk series) COVID-19 Vaccine (3 - Pfizer risk series) [facility] Start: 03-17-2023 Diabetes mellitus screening Diabetes Screening [facility] Start: 03-10-2023 End: 06-09-2023 Insulin [Units/volume] in Serum or Plasma INSULIN ASSAY BLOOD Lab Routine Insulin resistance, unspecified Expected: 03/10/2023, Expires: 06/09/2023 [facility] Work Phone: Comment on above: Expected: 03/10/2023, Expires: Start: 03-10-2023 End: 06-09-2023 INSULIN ANTIBODY BLD INSULIN ANTIBODY BLD Lab Routine Insulin resistance, unspecified Expected: 03/10/2023, Expires: 06/09/2023 [facility] Work Phone: Comment on above: Expected: 03/10/2023, Expires: Start: 02-11-2023 End: 02-08-2024 [id number] [Mass/volume] in Serum or Plasma B2 MICROGLOBULIN B Lab Routine Megaloblastic anemia due to vitamin B12 deficiency High total serum IgM Elevated sed rate Expected: 02/11/2023 (Approximate), Expires: 02/08/2024 [facility] Work Phone: Comment on above: Expected: 02/11/2023 (Approximate), Expi res: 02/08/2024 Start: 02-11-2023 End: 02-08-2024 Calcium.ionized [Moles/volume] in Blood CALCIUM IONIZED BLOOD Lab Routine Megaloblastic anemia due to vitamin B12 deficiency High total serum IgM Elevated sed rate Expected: 02/11/2023 (Approximate), Expires: 02/08/2024 [facility] Work Phone: Comment on above: Expected: 02/11/2023 (Approximate), Expi res: 02/08/2024 Start: 02-11-2023 End: 02-08-2024 CBC W Auto Differential panel - Blood CBC + DIFF Lab Routine Megaloblastic anemia due to vitamin B12 deficiency High total serum IgM Elevated sed rate Expected: 02/11/2023 (Approximate), Expires: 02/08/2024 [facility] Work Phone: Comment on above: Expected: 02/11/2023 (Approximate), Expi res: 02/08/2024 Start: 02-11-2023 End: 02-08-2024 Cobalamin (Vitamin B12) [Mass/volume] in Serum or Plasma VITAMIN B12 BLOOD Lab Routine Megaloblastic anemia due to vitamin B12 deficiency High total serum IgM Elevated sed rate Expected: 02/11/2023 (Approximate), Expires: 02/08/2024 [facility] Work Phone: Comment on above: Expected: 02/11/2023 (Approximate), Expi res: 02/08/2024 Start: 02-11-2023 End: 02-08-2024 Comprehensive metabolic 2000 panel - Serum or Plasma COMP METABOLIC PANEL Lab Routine Megaloblastic anemia due to vitamin B12 deficiency High total serum IgM Elevated sed rate Expected: 02/11/2023 (Approximate), Expires: 02/08/2024 [facility] Work Phone: Comment on above: Expected: 02/11/2023 (Approximate), Expi res: 02/08/2024 Start: 02-11-2023 End: 02-08-2024 Ferritin [Mass/volume] in Serum or Plasma FERRITIN BLD Lab Routine Megaloblastic anemia due to vitamin B12 deficiency High total serum IgM Elevated sed rate Expected: 02/11/2023 (Approximate), Expires: 02/08/2024 [facility] Work Phone: Comment on above: Expected: 02/11/2023 (Approximate), Expi res: 02/08/2024 Start: 02-11-2023 End: 02-08-2024 Folate [Mass/volume] in Serum or Plasma FOLATE SERUM Lab Routine Megaloblastic anemia due to vitamin B12 deficiency High total serum IgM Elevated sed rate Expected: 02/11/2023 (Approximate), Expires: 02/08/2024 [facility] Work Phone: Comment on above: Expected: 02/11/2023 (Approximate), Expi res: 02/08/2024 Start: 02-11-2023 End: 02-08-2024 Iron and Iron binding capacity panel - Serum or Plasma IRON + TIBC Lab Routine Megaloblastic anemia due to vitamin B12 deficiency High total serum IgM Elevated sed rate Expected: 02/11/2023 (Approximate), Expires: 02/08/2024 [facility] Work Phone: Comment on above: Expected: 02/11/2023 (Approximate), Expi res: 02/08/2024 Start: 02-11-2023 End: 04-13-2023 KAPPA/FARMER,FREE,SER KAPPA/FARMER,FREE,SER Lab Routine Megaloblastic anemia due to vitamin B12 deficiency High total serum IgM Elevated sed rate Expected: 02/11/2023 (Approximate), Expires: 04/13/2023 [facility] Work Phone: Comment on above: Expected: 02/11/2023 (Approximate), Expi res: 04/13/2023 Start: 02-11-2023 End: 02-08-2024 Lactate dehydrogenase [Enzymatic activity/volume] in Serum or Plasma LD LACTATE DEHYDRO Lab Routine Megaloblastic anemia due to vitamin B12 deficiency High total serum IgM Elevated sed rate Expected: 02/11/2023 (Approximate), Expires: 02/08/2024 [facility] Work Phone: Comment on above: Expected: 02/11/2023 (Approximate), Expi res: 02/08/2024 Start: 02-11-2023 End: 02-08-2024 MONOCLONAL PROTEIN, SERUM (BLOOD) MONOCLONAL PROTEIN, SERUM (BLOOD) Lab Routine Megaloblastic anemia due to vitamin B12 deficiency High total serum IgM Elevated sed rate Expected: 02/11/2023 (Approximate), Expires: 02/08/2024 [facility] Work Phone: Comment on above: Expected: 02/11/2023 (Approximate), Expi res: 02/08/2024 Start: 02-11-2023 End: 02-08-2024 Phosphate [Mass/volume] in Serum or Plasma PHOSPHORUS INORGANIC Lab Routine Megaloblastic anemia due to vitamin B12 deficiency High total serum IgM Elevated sed rate Expected: 02/11/2023 (Approximate), Expires: 02/08/2024 [facility] Work Phone: Comment on above: Expected: 02/11/2023 (Approximate), Expi res: 02/08/2024 Start: 02-11-2023 End: 02-08-2024 PROTEIN ELECTROPHORESIS SERUM W/INTERP PROTEIN ELECTROPHORESIS SERUM W/INTERP Lab Routine Megaloblastic anemia due to vitamin B12 deficiency High total serum IgM Elevated sed rate Expected: 02/11/2023 (Approximate), Expires: 02/08/2024 [facility] Work Phone: Comment on above: Expected: 02/11/2023 (Approximate), Expi res: 02/08/2024 Start: 02-11-2023 End: 02-08-2024 Urate [Mass/volume] in Serum or Plasma URIC ACID BLOOD Lab Routine Megaloblastic anemia due to vitamin B12 deficiency High total serum IgM Elevated sed rate Expected: 02/11/2023 (Approximate), Expires: 02/08/2024 [facility] Work Phone: Comment on above: Expected: 02/11/2023 (Approximate), Expi res: 02/08/2024 Start: 01-22-2023 Influenza vaccination [facility] Start: 12-17-2022 End: 10-23-2023 CBC W Auto Differential panel - Blood CBC + DIFF Lab Routine Megaloblastic anemia due to vitamin B12 deficiency Expected: 12/17/2022 (Approximate), Expires: 10/23/2023 [facility] Work Phone: Comment on above: Expected: 12/17/2022 (Approximate), Expi res: 10/23/2023 Start: 12-17-2022 End: 10-23-2023 Cobalamin (Vitamin B12) [Mass/volume] in Serum or Plasma VITAMIN B12 BLOOD Lab Routine Megaloblastic anemia due to vitamin B12 deficiency Expected: 12/17/2022 (Approximate), Expires: 10/23/2023 [facility] Work Phone: Comment on above: Expected: 12/17/2022 (Approximate), Expi res: 10/23/2023 Start: 12-17-2022 End: 10-23-2023 Comprehensive metabolic 2000 panel - Serum or Plasma COMP METABOLIC PANEL Lab Routine Megaloblastic anemia due to vitamin B12 deficiency Expected: 12/17/2022 (Approximate), Expires: 10/23/2023 [facility] Work Phone: Comment on above: Expected: 12/17/2022 (Approximate), Expi res: 10/23/2023 Start: 12-17-2022 End: 10-23-2023 Ferritin [Mass/volume] in Serum or Plasma FERRITIN BLD Lab Routine Megaloblastic anemia due to vitamin B12 deficiency Expected: 12/17/2022 (Approximate), Expires: 10/23/2023 [facility] Work Phone: Comment on above: Expected: 12/17/2022 (Approximate), Expi res: 10/23/2023 Start: 12-17-2022 End: 10-23-2023 Folate [Mass/volume] in Serum or Plasma FOLATE SERUM Lab Routine Megaloblastic anemia due to vitamin B12 deficiency Expected: 12/17/2022 (Approximate), Expires: 10/23/2023 [facility] Work Phone: Comment on above: Expected: 12/17/2022 (Approximate), Expi res: 10/23/2023 Start: 12-17-2022 End: 10-23-2023 Iron and Iron binding capacity panel - Serum or Plasma IRON + TIBC Lab Routine Megaloblastic anemia due to vitamin B12 deficiency Expected: 12/17/2022 (Approximate), Expires: 10/23/2023 [facility] Work Phone: Comment on above: Expected: 12/17/2022 (Approximate), Expi res: 10/23/2023 Start: 10-23-2022 End: 12-23-2022 25-hydroxyvitamin D3 [Mass/volume] in Serum or Plasma VITAMIN D 25 HYDROXY Lab Routine Megaloblastic anemia due to vitamin B12 deficiency Elevated sed rate High total serum IgM Chronic fatigue and malaise JOSE RAFAEL (obstructive sleep apnea) Expected: 10/23/2022, Expires: 12/23/2022 [facility] Work Phone: Comment on above: Expected: 10/23/2022, Expires: Start: 10-23-2022 End: 12-23-2022 C reactive protein [Mass/volume] in Serum or Plasma C-REACTIVE PROTEIN (CRP) Lab Routine Megaloblastic anemia due to vitamin B12 deficiency Elevated sed rate High total serum IgM Chronic fatigue and malaise JOSE RAFAEL (obstructive sleep apnea) Expected: 10/23/2022, Expires: 12/23/2022 [facility] Work Phone: Comment on above: Expected: 10/23/2022, Expires: Start: 10-23-2022 End: 12-23-2022 CBC W Auto Differential panel - Blood CBC + DIFF Lab Routine Megaloblastic anemia due to vitamin B12 deficiency Elevated sed rate High total serum IgM Chronic fatigue and malaise JOSE RAFAEL (obstructive sleep apnea) Expected: 10/23/2022, Expires: 12/23/2022 [facility] Work Phone: Comment on above: Expected: 10/23/2022, Expires: Start: 10-23-2022 End: 12-23-2022 Cobalamin (Vitamin B12) [Mass/volume] in Serum or Plasma VITAMIN B12 BLOOD Lab Routine Megaloblastic anemia due to vitamin B12 deficiency Elevated sed rate High total serum IgM Chronic fatigue and malaise JOSE RAFAEL (obstructive sleep apnea) Expected: 10/23/2022, Expires: 12/23/2022 [facility] Work Phone: Comment on above: Expected: 10/23/2022, Expires: 3 Start: 10-23-2022 End: 12-23-2022 Comprehensive metabolic 2000 panel - Serum or Plasma COMP METABOLIC PANEL Lab Routine Megaloblastic anemia due to vitamin B12 deficiency Elevated sed rate High total serum IgM Chronic fatigue and malaise JOSE RAFAEL (obstructive sleep apnea) Expected: 10/23/2022, Expires: 12/23/2022 [facility] Work Phone: Comment on above: Expected: 10/23/2022, Expires: Start: 10-23-2022 End: 12-23-2022 Erythrocyte sedimentation rate SED RATE WESTERGREN Lab Routine Megaloblastic anemia due to vitamin B12 deficiency Elevated sed rate High total serum IgM Chronic fatigue and malaise JOSE RAFAEL (obstructive sleep apnea) Expected: 10/23/2022, Expires: 12/23/2022 [facility] Work Phone: Comment on above: Expected: 10/23/2022, Expires: 3 Start: 10-23-2022 End: 12-23-2022 Lactate dehydrogenase [Enzymatic activity/volume] in Serum or Plasma LD LACTATE DEHYDRO Lab Routine Megaloblastic anemia due to vitamin B12 deficiency Elevated sed rate High total serum IgM Chronic fatigue and malaise JOSE RAFAEL (obstructive sleep apnea) Expected: 10/23/2022, Expires: 12/23/2022 [facility] Work Phone: Comment on above: Expected: 10/23/2022, Expires: Start: 10-23-2022 End: 12-23-2022 MONOCLONAL PROTEIN, SERUM (BLOOD) MONOCLONAL PROTEIN, SERUM (BLOOD) Lab Routine Megaloblastic anemia due to vitamin B12 deficiency Elevated sed rate High total serum IgM Chronic fatigue and malaise JOSE RAFAEL (obstructive sleep apnea) Expected: 10/23/2022, Expires: 12/23/2022 [facility] Work Phone: Comment on above: Expected: 10/23/2022, Expires: Start: 10-23-2022 End: 12-23-2022 PROT ELECT SERUM WITH DANA AND INTERP PROT ELECT SERUM WITH DANA AND INTERP Lab Routine Megaloblastic anemia due to vitamin B12 deficiency Elevated sed rate High total serum IgM Chronic fatigue and malaise JOSE RAFAEL (obstructive sleep apnea) Expected: 10/23/2022, Expires: 12/23/2022 [facility] Work Phone: Comment on above: Expected: 10/23/2022, Expires: Start: 09-19-2022 End: 08-20-2023 CBC panel - Blood by Automated count CBC Lab Routine Anemia of chronic disease Expected: 09/19/2022 (Approximate), Expires: 08/20/2023 [facility] Work Phone: Comment on above: Expected: 09/19/2022 (Approximate), Expi res: 08/20/2023 Start: 09-19-2022 End: 08-20-2023 Comprehensive metabolic 2000 panel - Serum or Plasma COMP METABOLIC PANEL Lab Routine Elevated LFTs Expected: 09/19/2022 (Approximate), Expires: 08/20/2023 [facility] Work Phone: Comment on above: Expected: 09/19/2022 (Approximate), Expi res: 08/20/2023 Start: 09-19-2022 End: 11-19-2022 TPMT PHENOTYPE/ENZYME ACTIVITY TPMT PHENOTYPE/ENZYME ACTIVITY Lab Routine 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 term care social worker 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 Expected: 09/19/2022 (Approximate), Expires: 11/19/2022 [facility] Work Phone: Comment on above: Expected: 09/19/2022 (Approximate), Expi res: 11/19/2022 Start: 08-28-2022 End: 10-28-2022 25-hydroxyvitamin D3 [Mass/volume] in Serum or Plasma VITAMIN D 25 HYDROXY Lab Routine Megaloblastic anemia due to vitamin B12 deficiency Elevated sed rate High total serum IgM Chronic fatigue and malaise Expected: 08/28/2022 (Approximate), Expires: 10/28/2022 [facility] Work Phone: Comment on above: Expected: 08/28/2022 (Approximate), Expi res: 10/28/2022 Start: 08-28-2022 End: 07-26-2023 [id number] [Mass/volume] in Serum or Plasma B2 MICROGLOBULIN B Lab Routine Megaloblastic anemia due to vitamin B12 deficiency Elevated sed rate High total serum IgM Chronic fatigue and malaise Expected: 08/28/2022 (Approximate), Expires: 07/26/2023 [facility] Work Phone: Comment on above: Expected: 08/28/2022 (Approximate), Expi res: 07/26/2023 Start: 08-28-2022 End: 10-28-2022 C reactive protein [Mass/volume] in Serum or Plasma C-REACTIVE PROTEIN (CRP) Lab Routine Megaloblastic anemia due to vitamin B12 deficiency Elevated sed rate High total serum IgM Chronic fatigue and malaise Expected: 08/28/2022 (Approximate), Expires: 10/28/2022 [facility] Work Phone: Comment on above: Expected: 08/28/2022 (Approximate), Expi res: 10/28/2022 Start: 08-28-2022 End: 07-26-2023 Calcium.ionized [Moles/volume] in Blood CALCIUM IONIZED BLOOD Lab Routine Megaloblastic anemia due to vitamin B12 deficiency Elevated sed rate High total serum IgM Chronic fatigue and malaise Expected: 08/28/2022 (Approximate), Expires: 07/26/2023 [facility] Work Phone: Comment on above: Expected: 08/28/2022 (Approximate), Expi res: 07/26/2023 Start: 08-28-2022 End: 07-26-2023 CBC W Auto Differential panel - Blood CBC + DIFF Lab Routine Megaloblastic anemia due to vitamin B12 deficiency Elevated sed rate High total serum IgM Chronic fatigue and malaise Expected: 08/28/2022 (Approximate), Expires: 07/26/2023 [facility] Work Phone: Comment on above: Expected: 08/28/2022 (Approximate), Expi res: 07/26/2023 Start: 08-28-2022 End: 10-28-2022 Cobalamin (Vitamin B12) [Mass/volume] in Serum or Plasma VITAMIN B12 BLOOD Lab Routine Megaloblastic anemia due to vitamin B12 deficiency Elevated sed rate High total serum IgM Chronic fatigue and malaise Expected: 08/28/2022 (Approximate), Expires: 10/28/2022 [facility] Work Phone: Comment on above: Expected: 08/28/2022 (Approximate), Expi res: 10/28/2022 Start: 08-28-2022 End: 07-26-2023 Comprehensive metabolic 2000 panel - Serum or Plasma COMP METABOLIC PANEL Lab Routine Megaloblastic anemia due to vitamin B12 deficiency Elevated sed rate High total serum IgM Chronic fatigue and malaise Expected: 08/28/2022 (Approximate), Expires: 07/26/2023 [facility] Work Phone: Comment on above: Expected: 08/28/2022 (Approximate), Expi res: 07/26/2023 Start: 08-28-2022 End: 10-28-2022 Erythrocyte sedimentation rate SED RATE WESTERGREN Lab Routine Megaloblastic anemia due to vitamin B12 deficiency Elevated sed rate High total serum IgM Chronic fatigue and malaise Expected: 08/28/2022 (Approximate), Expires: 10/28/2022 [facility] Work Phone: Comment on above: Expected: 08/28/2022 (Approximate), Expi res: 10/28/2022 Start: 08-28-2022 End: 10-28-2022 KAPPA/FARMER,FREE,SER KAPPA/FARMER,FREE,SER Lab Routine Megaloblastic anemia due to vitamin B12 deficiency Elevated sed rate High total serum IgM Chronic fatigue and malaise Expected: 08/28/2022 (Approximate), Expires: 10/28/2022 [facility] Work Phone: Comment on above: Expected: 08/28/2022 (Approximate), Expi res: 10/28/2022 Start: 08-28-2022 End: 07-26-2023 Lactate dehydrogenase [Enzymatic activity/volume] in Serum or Plasma LD LACTATE DEHYDRO Lab Routine Megaloblastic anemia due to vitamin B12 deficiency Elevated sed rate High total serum IgM Chronic fatigue and malaise Expected: 08/28/2022 (Approximate), Expires: 07/26/2023 [facility] Work Phone: Comment on above: Expected: 08/28/2022 (Approximate), Expi res: 07/26/2023 Start: 08-28-2022 End: 07-26-2023 MONOCLONAL PROTEIN, SERUM (BLOOD) MONOCLONAL PROTEIN, SERUM (BLOOD) Lab Routine Megaloblastic anemia due to vitamin B12 deficiency Elevated sed rate High total serum IgM Chronic fatigue and malaise Expected: 08/28/2022 (Approximate), Expires: 07/26/2023 [facility] Work Phone: Comment on above: Expected: 08/28/2022 (Approximate), Expi res: 07/26/2023 Start: 08-28-2022 End: 07-26-2023 Phosphate [Mass/volume] in Serum or Plasma PHOSPHORUS INORGANIC Lab Routine Megaloblastic anemia due to vitamin B12 deficiency Elevated sed rate High total serum IgM Chronic fatigue and malaise Expected: 08/28/2022 (Approximate), Expires: 07/26/2023 [facility] Work Phone: Comment on above: Expected: 08/28/2022 (Approximate), Expi res: 07/26/2023 Start: 08-28-2022 End: 07-26-2023 PROTEIN ELECTROPHORESIS SERUM W/INTERP PROTEIN ELECTROPHORESIS SERUM W/INTERP Lab Routine Megaloblastic anemia due to vitamin B12 deficiency Elevated sed rate High total serum IgM Chronic fatigue and malaise Expected: 08/28/2022 (Approximate), Expires: 07/26/2023 [facility] Work Phone: Comment on above: Expected: 08/28/2022 (Approximate), Expi res: 07/26/2023 Start: 08-28-2022 End: 07-26-2023 Urate [Mass/volume] in Serum or Plasma URIC ACID BLOOD Lab Routine Megaloblastic anemia due to vitamin B12 deficiency Elevated sed rate High total serum IgM Chronic fatigue and malaise Expected: 08/28/2022 (Approximate), Expires: 07/26/2023 [facility] Work Phone: Comment on above: Expected: 08/28/2022 (Approximate), Expi res: 07/26/2023 Start: 07-15-2022 End: 05-20-2023 [id number] [Mass/volume] in Serum or Plasma B2 MICROGLOBULIN B Lab Routine High total serum IgM Expected: 07/15/2022 (Approximate), Expires: 05/20/2023 [facility] Work Phone: Comment on above: Expected: 07/15/2022 (Approximate), Expi res: 05/20/2023 Start: 07-15-2022 End: 05-20-2023 Calcium.ionized [Moles/volume] in Blood CALCIUM IONIZED BLOOD Lab Routine High total serum IgM Expected: 07/15/2022 (Approximate), Expires: 05/20/2023 [facility] Work Phone: Comment on above: Expected: 07/15/2022 (Approximate), Expi res: 05/20/2023 Start: 07-15-2022 End: 05-20-2023 CBC W Auto Differential panel - Blood CBC + DIFF Lab Routine High total serum IgM Expected: 07/15/2022 (Approximate), Expires: 05/20/2023 [facility] Work Phone: Comment on above: Expected: 07/15/2022 (Approximate), Expi res: 05/20/2023 Start: 07-15-2022 End: 05-20-2023 Comprehensive metabolic 2000 panel - Serum or Plasma COMP METABOLIC PANEL Lab Routine High total serum IgM Expected: 07/15/2022 (Approximate), Expires: 05/20/2023 [facility] Work Phone: Comment on above: Expected: 07/15/2022 (Approximate), Expi res: 05/20/2023 Start: 07-15-2022 End: 09-14-2022 KAPPA/FARMER,FREE,SER KAPPA/FARMER,FREE,SER Lab Routine High total serum IgM Expected: 07/15/2022 (Approximate), Expires: 09/14/2022 [facility] Work Phone: Comment on above: Expected: 07/15/2022 (Approximate), Expi res: 09/14/2022 Start: 07-15-2022 End: 05-20-2023 Lactate dehydrogenase [Enzymatic activity/volume] in Serum or Plasma LD LACTATE DEHYDRO Lab Routine High total serum IgM Expected: 07/15/2022 (Approximate), Expires: 05/20/2023 [facility] Work Phone: Comment on above: Expected: 07/15/2022 (Approximate), Expi res: 05/20/2023 Start: 07-15-2022 End: 05-20-2023 MONOCLONAL PROTEIN, SERUM (BLOOD) MONOCLONAL PROTEIN, SERUM (BLOOD) Lab Routine High total serum IgM Expected: 07/15/2022 (Approximate), Expires: 05/20/2023 [facility] Work Phone: Comment on above: Expected: 07/15/2022 (Approximate), Expi res: 05/20/2023 Start: 07-15-2022 End: 05-20-2023 Phosphate [Mass/volume] in Serum or Plasma PHOSPHORUS INORGANIC Lab Routine High total serum IgM Expected: 07/15/2022 (Approximate), Expires: 05/20/2023 [facility] Work Phone: Comment on above: Expected: 07/15/2022 (Approximate), Expi res: 05/20/2023 Start: 07-15-2022 End: 05-20-2023 PROTEIN ELECTROPHORESIS SERUM W/INTERP PROTEIN ELECTROPHORESIS SERUM W/INTERP Lab Routine High total serum IgM Expected: 07/15/2022 (Approximate), Expires: 05/20/2023 [facility] Work Phone: Comment on above: Expected: 07/15/2022 (Approximate), Expi res: 05/20/2023 Start: 07-15-2022 End: 05-20-2023 Urate [Mass/volume] in Serum or Plasma URIC ACID BLOOD Lab Routine High total serum IgM Expected: 07/15/2022 (Approximate), Expires: 05/20/2023 [facility] Work Phone: Comment on above: Expected: 07/15/2022 (Approximate), Expi res: 05/20/2023 Start: 06-05-2022 End: 03-05-2023 25-hydroxyvitamin D3 [Mass/volume] in Serum or Plasma VITAMIN D 25 HYDROXY Lab Routine Vitamin D deficiency Expected: 06/05/2022 (Approximate), Expires: 03/05/2023 [facility] Work Phone: Comment on above: Expected: 06/05/2022 (Approximate), Expi res: 03/05/2023 Start: 06-05-2022 End: 03-05-2023 C reactive protein [Mass/volume] in Serum or Plasma C-REACTIVE PROTEIN (CRP) Lab Routine Elevated sed rate Elevated C-reactive protein (CRP) Expected: 06/05/2022 (Approximate), Expires: 03/05/2023 [facility] Work Phone: Comment on above: Expected: 06/05/2022 (Approximate), Expi res: 03/05/2023 Start: 06-05-2022 End: 03-05-2023 Cobalamin (Vitamin B12) [Mass/volume] in Serum or Plasma VITAMIN B12 BLOOD Lab Routine Vitamin B12 deficiency Expected: 06/05/2022 (Approximate), Expires: 03/05/2023 [facility] Work Phone: Comment on above: Expected: 06/05/2022 (Approximate), Expi res: 03/05/2023 Start: 06-05-2022 End: 03-05-2023 Erythrocyte sedimentation rate SED RATE WESTERGREN Lab Routine Elevated sed rate Elevated C-reactive protein (CRP) Expected: 06/05/2022 (Approximate), Expires: 03/05/2023 [facility] Work Phone: Comment on above: Expected: 06/05/2022 (Approximate), Expi res: 03/05/2023 Start: 05-06-2022 End: 03-18-2023 Lugs-0-Sygwrlogwrorv [Mass/volume] in Serum or Plasma B2 MICROGLOBULIN B Lab Routine Megaloblastic anemia due to vitamin B12 deficiency High total serum IgM Expected: 05/06/2022 (Approximate), Expires: 03/18/2023 [facility] Work Phone: Comment on above: Expected: 05/06/2022 (Approximate), Expi res: 03/18/2023 Start: 05-06-2022 End: 03-18-2023 Calcium.ionized [Moles/volume] in Blood CALCIUM IONIZED BLOOD Lab Routine Megaloblastic anemia due to vitamin B12 deficiency High total serum IgM Expected: 05/06/2022 (Approximate), Expires: 03/18/2023 [facility] Work Phone: Comment on above: Expected: 05/06/2022 (Approximate), Expi res: 03/18/2023 Start: 05-06-2022 End: 03-18-2023 CBC W Auto Differential panel - Blood CBC + DIFF Lab Routine Megaloblastic anemia due to vitamin B12 deficiency High total serum IgM Expected: 05/06/2022 (Approximate), Expires: 03/18/2023 [facility] Work Phone: Comment on above: Expected: 05/06/2022 (Approximate), Expi res: 03/18/2023 Start: 05-06-2022 End: 03-18-2023 Comprehensive metabolic 2000 panel - Serum or Plasma COMP METABOLIC PANEL Lab Routine Megaloblastic anemia due to vitamin B12 deficiency High total serum IgM Expected: 05/06/2022 (Approximate), Expires: 03/18/2023 [facility] Work Phone: Comment on above: Expected: 05/06/2022 (Approximate), Expi res: 03/18/2023 Start: 05-06-2022 End: 03-18-2023 Ferritin [Mass/volume] in Serum or Plasma FERRITIN BLD Lab Routine Megaloblastic anemia due to vitamin B12 deficiency High total serum IgM Expected: 05/06/2022 (Approximate), Expires: 03/18/2023 [facility] Work Phone: Comment on above: Expected: 05/06/2022 (Approximate), Expi res: 03/18/2023 Start: 05-06-2022 End: 03-18-2023 Iron and Iron binding capacity panel - Serum or Plasma IRON + TIBC Lab Routine Megaloblastic anemia due to vitamin B12 deficiency High total serum IgM Expected: 05/06/2022 (Approximate), Expires: 03/18/2023 [facility] Work Phone: Comment on above: Expected: 05/06/2022 (Approximate), Expi res: 03/18/2023 Start: 05-06-2022 End: 03-18-2023 Lactate dehydrogenase [Enzymatic activity/volume] in Serum or Plasma LD LACTATE DEHYDRO Lab Routine Megaloblastic anemia due to vitamin B12 deficiency High total serum IgM Expected: 05/06/2022 (Approximate), Expires: 03/18/2023 [facility] Work Phone: Comment on above: Expected: 05/06/2022 (Approximate), Expi res: 03/18/2023 Start: 05-06-2022 End: 03-18-2023 MONOCLONAL PROTEIN, SERUM (BLOOD) MONOCLONAL PROTEIN, SERUM (BLOOD) Lab Routine Megaloblastic anemia due to vitamin B12 deficiency High total serum IgM Expected: 05/06/2022 (Approximate), Expires: 03/18/2023 [facility] Work Phone: Comment on above: Expected: 05/06/2022 (Approximate), Expi res: 03/18/2023 Start: 05-06-2022 End: 03-18-2023 Phosphate [Mass/volume] in Serum or Plasma PHOSPHORUS INORGANIC Lab Routine Megaloblastic anemia due to vitamin B12 deficiency High total serum IgM Expected: 05/06/2022 (Approximate), Expires: 03/18/2023 [facility] Work Phone: Comment on above: Expected: 05/06/2022 (Approximate), Expi res: 03/18/2023 Start: 05-06-2022 End: 03-18-2023 PROTEIN ELECTROPHORESIS SERUM W/INTERP PROTEIN ELECTROPHORESIS SERUM W/INTERP Lab Routine Megaloblastic anemia due to vitamin B12 deficiency High total serum IgM Expected: 05/06/2022 (Approximate), Expires: 03/18/2023 [facility] Work Phone: Comment on above: Expected: 05/06/2022 (Approximate), Expi res: 03/18/2023 Start: 05-06-2022 End: 03-18-2023 Urate [Mass/volume] in Serum or Plasma URIC ACID BLOOD Lab Routine Megaloblastic anemia due to vitamin B12 deficiency High total serum IgM Expected: 05/06/2022 (Approximate), Expires: 03/18/2023 [facility] Work Phone: Comment on above: Expected: 05/06/2022 (Approximate), Expi res: 03/18/2023 Start: 04-05-2022 COVID-19 VACCINE (5 - Pfizer risk series) COVID-19 VACCINE (5 - Pfizer risk series) [facility] Start: 03-09-2022 End: 05-09-2022 Hemoglobin A1c in Blood HGB A1C Lab Routine Elevated glucose Expected: 03/09/2022, Expires: 05/09/2022 [facility] Work Phone: Comment on above: Expected: 03/09/2022, Expires: Start: 02-24-2022 End: 04-26-2022 BARTONELLA AB PANEL BARTONELLA AB PANEL Lab Routine Swelling of lymph nodes Expected: 02/24/2022, Expires: 04/26/2022 [facility] Work Phone: Comment on above: Expected: 02/24/2022, Expires: 2 Start: 02-24-2022 End: 04-26-2022 BRUCELLA AB TOTAL BRUCELLA AB TOTAL Lab Routine Swelling of lymph nodes Expected: 02/24/2022, Expires: 04/26/2022 [facility] Work Phone: Comment on above: Expected: 02/24/2022, Expires: 2 Start: 02-24-2022 End: 04-26-2022 Cryptococcus sp Ag [Presence] in Unspecified specimen by Latex agglutination CRYPTOCOCCUS AG DET Microbiology Routine Swelling of lymph nodes Expected: 02/24/2022, Expires: 04/26/2022 [facility] Work Phone: Comment on above: Expected: 02/24/2022, Expires: 2 Start: 02-24-2022 End: 04-26-2022 HISTOPLASMA AG URINE HISTOPLASMA AG URINE Lab Routine Swelling of lymph nodes Expected: 02/24/2022, Expires: 04/26/2022 [facility] Work Phone: Comment on above: Expected: 02/24/2022, Expires: 2 Start: 02-24-2022 End: 04-26-2022 HIV 1 RNA [#/volume] (viral load) in Serum or Plasma by YESSI with probe detection HIV RNA VIRAL LOAD Lab Routine Swelling of lymph nodes Expected: 02/24/2022, Expires: 04/26/2022 [facility] Work Phone: Comment on above: Expected: 02/24/2022, Expires: 2 Start: 02-24-2022 End: 04-26-2022 SYPHILIS TOTAL W/REFLEX SYPHILIS TOTAL W/REFLEX Lab Routine Swelling of lymph nodes Expected: 02/24/2022, Expires: 04/26/2022 [facility] Work Phone: Comment on above: Expected: 02/24/2022, Expires: 2 Start: 01-22-2022 Influenza vaccination [facility] Start: 08-24-2021 COVID-19 VACCINE (4 - Booster for Pfizer series) COVID-19 VACCINE (4 - Booster for Pfizer series) [facility] Start: 01-22-2021 Influenza vaccination Flu vaccine (Season Ended) [employer] Phone: Start: 2020 Lipid panel Lipid screen [employer] Phone: Start: 2020 Mammography [facility] Start: 2020 Screening for malignant neoplasm of breast [facility] Start: 2010 HPV TESTING HPV TESTING [facility] Start: 2010 Screening for malignant neoplasm of cervix [facility] Start: 10-05-2007 HPV Vaccine (1 - Risk 3-dose SCDM series) HPV Vaccine (1 - Risk 3-dose SCDM series) [facility] Start: 2002 DTaP/Tdap/Td Vaccines (1 - Tdap) DTaP/Tdap/Td Vaccines (1 - Tdap) [facility] Start: 2001 PAP TESTING PAP TESTING [facility] Start: 2001 Screening for malignant neoplasm of cervix [facility] Start: 10-05-1999 DTaP,Tdap and Td Vaccines (1 - Tdap) DTaP,Tdap and Td Vaccines (1 - Tdap) [facility] Start: 10-05-1999 DTaP/Tdap/Td vaccine (1 - Tdap) DTaP/Tdap/Td vaccine (1 - Tdap) [employer] Phone: Start: 10-05-1999 Hepatitis B Vaccine (1 of 3 - 19+ 3-dose series) Hepatitis B Vaccine (1 of 3 - 19+ 3-dose series) [facility] Start: 10-05-1999 Hepatitis B Vaccines (1 of 3 - 19+ 3-dose series) Hepatitis B Vaccines (1 of 3 - 19+ 3-dose series) [facility] Start: 10-05-1999 Pneumococcal vaccination Pneumococcal Vaccine (1 of 2 - PCV) [facility] Start: 10-05-1999 Pneumococcal Vaccine: Pediatrics and At-Risk Adult Patients (1 of 2 - PCV) Pneumococcal Vaccine: Pediatrics and At-Risk Adult Patients (1 of 2 - PCV) [facility] Start: 10-05-1999 SHINGRIX VACCINE (1 of 2) SHINGRIX VACCINE (1 of 2) [facility] Start: 10-05-1999 Urine microalbumin profile [facility] Start: 10-05-1999 Zoster Vaccines (1 of 2) Zoster Vaccines (1 of 2) [facility] Start: 1998 Adult BMI Follow Up Plan Adult BMI Follow Up Plan [facility] Start: 1998 Adult BMI Screening Adult BMI Screening [facility] Start: 1998 Anxiety Screening Anxiety Screening [facility] Start: 1998 Hepatitis C screening Hepatitis C Screening [facility] Start: 1998 HIV SCREENING HIV SCREENING [facility] Start: 1998 HIV screening HIV Screening [facility] Start: 10-05-1995 HIV screening HIV screen [facility] [employer] Phone: Start: 1993 Varicella vaccination Varicella Vaccines (1 of 2 - 13+ 2-dose series) [facility] Start: 1992 COVID-19 Vaccine (1) COVID-19 Vaccine (1) [employer] Phone: Start: 1992 Depression Screening Depression Screening [facility] Start: 1992 Tobacco Screening Tobacco Screening [facility] Start: 10-05-1991 Screening for malignant neoplasm of cervix Cervical Cancer Screening [facility] Start: 1986 PNEUMOCOCCAL (1 - PCV) PNEUMOCOCCAL (1 - PCV) [facility] Start: 1986 Pneumococcal vaccination [facility] Start: 1986 Pneumococcal Vaccine: Pediatrics (0 to 5 Years) and At-Risk Patients (6 to 64 Years) (1 - PCV) Pneumococcal Vaccine: Pediatrics (0 to 5 Years) and At-Risk Patients (6 to 64 Years) (1 - PCV) [facility] Start: 1981 MMR Vaccines (1 of 1 - Standard series) MMR Vaccines (1 of 1 - Standard series) [facility] Start: 1981 Varicella vaccination Varicella Vaccines (1 of 2 - 2-dose childhood series) [facility] Start: 1981 Varicella vaccine (1 of 2 - 2-dose childhood series) Varicella vaccine (1 of 2 - 2-dose childhood series) [employer] Phone: Start: 1980 HEPATITIS B (1 of 3 - 3-dose series) HEPATITIS B (1 of 3 - 3-dose series) [facility] Start: 1980 Hepatitis B Vaccine (1 of 3 - 3-dose series) Hepatitis B Vaccine (1 of 3 - 3-dose series) [facility] Start: 1980 Hepatitis B Vaccines (1 of 3 - 3-dose series) Hepatitis B Vaccines (1 of 3 - 3-dose series) [facility] Start: 1980 Hepatitis C screening Hepatitis C screen [employer] Phone: Start: 1980 HIV screening HIV Screening [facility] Start: 1980 HPV Vaccine: Recommended Based On Risk HPV Vaccine: Recommended Based On Risk [facility] Start: 1980 Lipid panel Lipid Panel [facility] Start: 1980 Screening for osteoporosis Bone Density Scan [facility] Start: 1980 Tobacco Counseling Tobacco Counseling [facility] Start: 1980 Yearly Adult Physical Yearly Adult Physical [facility] 25-hydroxyvitamin D3 [Mass/volume] in Serum or Plasma VITAMIN D 25 HYDROXY Lab Routine Vitamin D deficiency 01/11/2025 1:48 PM EDT [facility] BLOOD TB SCREEN BLOOD TB SCREEN Lab Routine Screening-pulmonary TB 01/11/2025 1:48 PM EDT [facility] C reactive protein [Mass/volume] in Serum or Plasma C-REACTIVE PROTEIN Lab Routine Elevated sed rate Elevated C-reactive protein (CRP) 01/11/2025 1:48 PM EDT [facility] Cardiovascular funct ion eval w/tilt table w/mntr TILT TABLE EVALUATION Cardiology Routine POTS (postural orthostatic tachycardia syndrome) Ordered: 03/09/2022 [facility] [employer] Phone: Comment on above: Ordered: 03/09/2022 CBC W Auto Different ial panel - Blood CBC and differential Lab Routine Menorrhagia with regular cycle Ordered: 03/23/2024 [facility] [employer] Work Phone: Comment on above: Ordered: 03/23/2024 Chronic hepatitis differentiation between hepatitis B and C virus panel - Serum or Plasma HEP REMOTE PANEL BL Lab Routine Elevated LFTs 01/11/2025 1:48 PM EDT [facility] Cobalamin (Vitamin B 12) [Mass/volume] in Serum or Plasma VITAMIN B12 Lab Routine Vitamin B12 deficiency 01/11/2025 1:48 PM EDT [facility] CT Abdomen W contrast IV [facility] End: 03-05-2024 DXA-AXIAL SKELETON DXA-AXIAL SKELETON Radiology Routine Steroid-induced osteoporosis 1 Occurrences starting 02/04/2023 until 03/05/2024 [facility] Work Phone: Comment on above: 1 Occurrences starting 02/04/2023 until 03/05/2024 End: 03-05-2024 DXA-FOREARM SKELETON DXA-FOREARM SKELETON Radiology Routine Steroid-induced osteoporosis 1 Occurrences starting 02/04/2023 until 03/05/2024 [facility] Work Phone: Comment on above: 1 Occurrences starting 02/04/2023 until 03/05/2024 ECG 12 Lead ECG 12 Lead ECG Routine Irregular heart rate 06/09/2023 8:28 AM [facility] Work Phone: Erythrocyte sediment ation rate SEDIMENTATION RATE, WESTERGREN Lab Routine Elevated sed rate Elevated C-reactive protein (CRP) 01/11/2025 1:48 PM EDT [facility] Work Phone: hCG, quantitative, hCG, quantitative, Lab Routine Menorrhagia with regular cycle Ordered: 03/23/2024 [facility] [employer] Comment on above: Ordered: 03/23/2024 Hemoglobin A1c/Hemoglobin.total in Blood Hemoglobin A1c Lab Routine Menorrhagia with regular cycle Ordered: 03/23/2024 [facility] [employer] Comment on above: Ordered: 03/23/2024 Hepatitis B virus co re Ab [Presence] in Serum HEPATITIS B CORE ANTIBODY TOTAL Lab Routine Elevated LFTs 01/11/2025 1:48 PM EDT [facility] Hepatitis B virus galarza rface Ab [Presence] in Serum HEPATITIS B SURFACE ANTIBODY Lab Routine Elevated LFTs 01/11/2025 1:48 PM EDT [facility] Hepatitis B virus galarza rface Ag [Presence] in Serum HEPATITIS B SURFACE ANTIGEN Lab Routine Elevated LFTs 01/11/2025 1:48 PM EDT [facility] Hepatitis C virus Ab [Presence] in Serum HEPATITIS C ANTIBODY IA WITH CONFIRMATION Lab Routine Elevated LFTs 01/11/2025 1:48 PM EDT [facility] End: 03-09-2023 HOME SLEEP APNEA TEST (HSAT) HOME SLEEP APNEA TEST (HSAT) Procedures Routine Somnolence, daytime Snoring 1 Occurrences starting 03/09/2022 until 03/09/2023 [facility] Work Phone: Comment on above: 1 Occurrences starting 03/09/2022 until 03/09/2023 HYDROGEN BREATH TEST B/O HYDROGE N BREATH TEST B/O Procedures Routine Diarrhea, unspecified type Abdominal pressure Ordered: 06/14/2024 [facility] Work Phone: Comment on above: Ordered: 06/14/2024 Oxygen therapy [[facility] Data Set] Initiate Oxygen Therapy Protocol Respiratory Care Routine Daily until discontinued starting 10/07/2020 [facility] Work Phone: Comment on above: Daily until discontinued starting 2020 Patient Education Know your Meds Jorge Luis Non Diagnostic Block [facility] Work Phone: Patient referral [facility] Work Phone: End: 03-04-2023 Polysomnogram POLYSOMNOGRAM (PSG) Procedures Routine Somnolence, daytime Snoring 1 Occurrences starting 03/04/2022 until 03/04/2023 [facility] Work Phone: Comment on above: 1 Occurrences starting 03/04/2022 until 03/04/2023 Prothrombin time (PT ) in Blood by Coagulation assay Protime-INR Lab Routine Menorrhagia with regular cycle Ordered: 03/23/2024 [facility] Comment on above: Ordered: 03/23/2024 THIN PREP TIS PAP AN D HR HPV DNA THIN PREP TIS PAP AND HR HPV DNA Pathology and Cytology Routine Well woman exam with routine gynecological exam Ordered: 06/06/2024 [facility] Comment on above: Ordered: 06/06/2024 Thyrotropin [Units/v olume] in Serum or Plasma TSH Lab Routine Menorrhagia with regular cycle Ordered: 03/23/2024 [facility] Comment on above: Ordered: 03/23/2024 Thyroxine (T4) free [Mass/volume] in Serum or Plasma T4, free Lab Routine Menorrhagia with regular cycle Ordered: 03/23/2024 [facility] Comment on above: Ordered: 03/23/2024 XR Thoracic spine 3 Views [facility] Immunizations Immunization Date Immunization Notes Care Provider Reginaldo [email or web address] 02-23-2023 COVID-19 vaccine, ag e 12+ yr, 2022- season ([employer]) Lynne Ni MD Work Phone: [facility] 02-08-2022 COVID-19 mRNA Bivale nt Booster ([employer]) Gay Enciso CORRUGATOR OPERATOR HELPER-C Work Phone: [facility] 05-26-2021 COVID-19 mRNA, Comirnaty (Pfizer) Gay Enciso CORRUGATOR OPERATOR HELPER-C Work Phone: [facility] 10-19-2020 COVID-19 mRNA, Comirnaty (Pfizer) Gay Enciso CORRUGATOR OPERATOR HELPER-C Work Phone: [facility] 09-28-2020 COVID-19 mRNA, Comirnaty (Pfizer) Gay GALEANO Work Phone: [facility] Payers Date Payer Category Payer Medicaid HMO [employer] [id number] 2024 Self-pay [id number] 2017 Medicaid (Managed Care) [employer] [id number] 2017 Private Health Insurance [facility] MEDICA[facility] [id number] 2017 Unknown [employer] [id number] 2017-Present [address] [place] [address] [id number] 2009 Medicaid [employer] [id number] 2009-Present [phone] [address] [place] [address] Medicaid [id number] 2009 Medicaid [id number] 1980 Unknown [id number] 2.16.840.1.735093.3.579.2. 185 1980 Unknown [id number] 2.16.840.1.205229.3.579.2. 175 1980 Unknown [id number] 2.16.840.1.705855.3.579.2. 593 1980 Unknown [id number] 2.16.840.1.627464.3.579.2. 593 1980 Unknown [id number] 2.16.840.1.379771.3.579.2. 593 1980 Unknown [id number] 2.16.840.1.986830.3.579.2. 593 1980 Unknown [id number] 2.16.840.1.342214.3.579.2. 593 1980 Unknown [id number] 2.16.840.1.266941.3.579.2. 593 1980 Unknown [id number] 2.16.840.1.913016.3.579.2. 593 1980 Unknown [id number] 2.16.840.1.001213.3.579.2. 59 1980 Unknown [id number] 2.16.840.1.871269.3.579.2. 59 1980 Unknown [id number] 2.16.840.1.689161.3.579.2. 1980 Unknown [id number] 2.16.840.1.273940.3.579.2. 1243 1980 Unknown [id number] 2.16840.1.473540.3.579.2. 1243 1980 Unknown [id number] 2.16840.1.175709.3.579.2. 1258 1980 Unknown [id number] 2.840.1.377976.3.579.2. 1258 1980 Unknown [id number] 2.840.1.648178.3.579.2. 1258 1980 Unknown [id number] 2.840.1.711262.3.579.2. 1258 1980 Unknown [id number] 2.840.1.268108.3.579.2. 1258 1980 Unknown [id number] 2.840.1.933669.3.579.2. 1258 1980 Unknown [id number] .840.1.487558.3.579.2. 1258 1980 Unknown [id number] 2.840.1.853019.3.579.2. 1258 1980 Unknown [id number] 2.840.1.222438.3.579.2. 1258 1980 Unknown [id number] .16840.1.065921.3.579.2. 1258 1959 Unknown [id number] 1959 Unknown [id number] Unknown [id number] 2.16840.1.200674.3.579.2. 531 Unknown [id number] .840.1.415813.3.579.2. 531 Unknown [id number] 2.16.840.1.798561.3.579.2. 531 Unknown [id number] 2.16.840.1.819957.3.579.2. 531 Social History Date Type Detail Facility Start: 05-24-1995 End: 11-08-2023 Tobacco smoking status WIIS Current every day smoker [facility] Start: 10-07-2020 End: 11-08-2023 Tobacco use and exposure Never used [employer] Start: 10-07-2020 End: 02-14-2025 Alcohol intake Lifetime non-drinker (finding) [employer] Phone: Start: 10-07-2020 History SDOH Alcohol Frequency 1 [employer] Phone: Start: 1980 Sex Assigned At Not on file [facility] [employer] Phone: Start: 02-22-2022 End: 07-26-2024 Exposure to SARS-CoV-2 (event) Not sure [employer] Start: 05-24-1995 History of tobacco use Cigarette Smo ker [facility] Start: 05-31-2014 End: 11-23-2024 Cigarettes smoked current (pack per day) - Reported 1 [facility] Start: 10-24-2021 End: 11-29-2024 Alcohol intake Current non-drinker of alcohol (finding) [facility] Start: 10-14-2021 End: 10-24-2021 Exposure to SARS-CoV-2 (event) Unable to assess [facility] Start: 10-22-2022 End: 11-23-2024 Sex Assigned At [facility] Start: 05-31-2014 Adult Depression Screening Assessment 1 [facility] Start: 10-19-2022 Tobacco Comment Current smoker , everyday, 11-20 cigarettes/day [facility] Start: 05-31-2023 Alcohol Comment Caffeine intak e : > 4 cups per day [facility] Start: 08-19-2016 End: 12-16-2023 Tobacco smoking status NHIS Smoker (finding) [facility] Start: 1980 Sex Assigned At Female F [facility] Start: 07-02-2016 End: 08-22-2024 Sex Female (finding) [facility] Start: 02-21-2024 Gender identity Identifies as female gender (finding) [facility] Goals Date Patient Goal Desired Activity /State Functional Status Date Assessment Result Facility 12-25-2014 Are you deaf, or do you have serious difficulty hearing No 12/25/2014 11:14 AM EDT Chichi Zarco Ma No [facility] 12-25-2014 Are you blind, or do you have serious difficulty seeing, even when wearing glasses No 12/25/2014 11:14 AM EDT Chichi Zarco Ma No [facility] 12-25-2014 Do you have serious difficulty walking or climbing stairs Yes 12/25/2014 11:14 AM EDT Chichi Zarco Ma Yes [facility] 12-25-2014 Do you have difficul ty dressing or bathing Yes 12/25/2014 11:14 AM EDT Chichi Zarco Ma Yes [facility] 12-25-2014 Because of a physica l, mental, or emotional condition, do you have difficulty doing errands alone such as visiting a physician's office or shopping No 12/25/2014 11:14 AM EDT Chichi Zarco Ma No [facility] Mental Status Date Assessment Result Facility 12-25-2014 Because of a physica l, mental, or emotional condition, do you have serious difficulty concentrating, remembering, or making decisions No 12/25/2014 11:14 AM EDT Chichi Zarco Ma No [facility] Clinical Notes 05-31-2014 to 02-14-2025 Bernabe English [...] treatment with ILK today. ILK today, see [facility] for details. Consent: The risks and benefits of intralesional kenalog were discussed prior to the procedure. Specifically, the risk of skin atrophy was reviewed. It was also emphasized that multiple treatments may be necessary. Verbal consent was obtained from the patient/parent. Method: See [facility] for details on administration. 0.1 [...] Visit: as scheduled documented in this encounter [facility] 01-24-[address] [facility] 01-24-2025 History of Presen t illness Narrative Pt did not receive B12 injection today. Pt called & agreeable to receive it when she returns in 2 weeks for her Benlysta infusion. Pharmacy aware and moving date. Elena Alfonso, RN documented in this encounter [facility] 01-18-2025 Telephone encounter Note MC message read by patient . [facility] 01-18-2025 Miscellaneous Notes MC message read by [...] start prior authorization documented in this encounter [facility] 01-18-2025 Telephone encounter Note Please Call patient [...] sq benlysta to IV, start prior authorization [facility] 12-14-2024 Note HNO ID: [id number] Author: JHONATHAN VALE RN Service: ? Author Type: Registered Nurse Type: Progress Notes Filed: 12/14/2024 16:36 Note Text: Ran over 2 hours per patient request[address] [facility] 12-14-2024 History of Presen t illness Narrative Ran over 2 hours per patient request. documented in this encounter [facility] 12-14-[address] [facility] 12-14-2024 History of Presen t illness Narrative CMN RECEIVED BY [employer] VIA FAX, COMPLETED, AND PLACED IN PROVIDER MAILBOX FOR SIGNATURE Ama Esparza Chute Boss II [employer] SENDING CMN: Josh SIGNED AND DATED CMN, FAXED TO DME & CONFIRMATION PAGE RECEIVED: 12.14.2024 documented in this encounter [facility] 11-30-2024 Evaluation note Diagnosis Onset Date Resolution [...] 9:23am Sacroiliitis acute February 142024 9:23am [facility] Work Phone: 1(201) 441-935107-10-2025 Telephone encounter Note* Telephone Encounter - Enma Hamm RN - 11/30/2024 8:36 AM EDT Pt updated on results. Will continue with IVIG, as previously scheduled. Denied further needs or concerns at this time. Enma Hamm RN [facility]07-10-2025 Miscellaneous Notes* Telephone Encounter - Enma Hamm RN - 11/30/2024 8:36 AM EDT Pt updated on results. Will continue with IVIG, as previously scheduled. Denied further needs or concerns at this time. Enma Hamm RN documented in this encounterOhio [facility] System07-09-2025 [facility] History of Present illness Narrative* Vaibhav Carvalho APRN.SPEECH THERAPY DIRECTOR - 11/29/2024 8:43 AM EDT Images from the original note were not included. NAME: Ariadna Haley [facility] NO.: [id number] DATE OF SERVICE: .November 29, 2024 (Deven) Some elements in this clinic note that are critical to medical decision making have been carefully reviewed and included from a prior clinic note dated: September 06, 2024 (Deven) Referring Provider: Dr. Manuel Ferris [...] to monitor; no current intervention required per [facility] recommendations. 7. Pre-diabetes (R73.03) Borderline diabetic. 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 She experiences intermittent fatigue, shortness of breath, [...] to anxiety. Updated Visit, April 20, 2023: Aridana Haley returns for scheduled follow-up and monthly [...] lower lip done 2 days ago at [facility] - awaiting results. B12 helps [...] injections. Shefollows with multiple doctors including and page technician, oil gauger, farmworker bulbs and PCP. She has been told they [...] subcutaneously one time a week. Per PCP hjojysalrrRUHTF-eehhme-boolgkawv (BMX 1:1:1) 1:1:1 liqd Take 5 mL [...] (Crohn's [Other]) Mother . Vaibhav Carvalho APRN, CORRUGATOR OPERATOR HELPER-C, [facility] Provided at: [place], [place] CC: Manuel Ferris MD [facility] [address] documented in this encounterOhio State Health System07-03-2025 History of Present illness Narrative* KELVIN Pope [...] treatment with ILK today. ILK today, see [facility] for details. Consent: The risks and benefits of intralesional kenalog were discussed prior to the procedure. Specifically, the risk of skin atrophy was reviewed. It was also emphasized that multiple treatments may be necessary. Verbal consent was obtained from the patient/parent. Method: See [facility] for details on administration. 0.2 [...] Next Visit: as scheduled documented in this encounterNortheast Regional Medical [id number] Telephone encounter Note* Telephone Encounter - Renea Schneider MA - 11/20/2024 12:00 PM EDT Patient coming in for treatment visit Wednesday11/29/24. Please add lab orders. thanks. Renea Schneider MA [facility]06-23-2025 Chief complaint+Reason for visit Narrative* Chief Complaint [...] Sacroiliitis January 17, 2025 10 :29am [facility] Work Phone: 1(341) 482-498406-23-2025 Chief complaint+Reason for visit Narrative * Chief [...] :29am Sacroiliitis January 17, 2025 10 :29am [facility] Work Phone: 1(416) 642-384506-23-2025 Evaluation note* Diagnosis Onset Date Resolution Status [...] Sacroiliitis acute January 17, 2025 10:29am [facility] Work Phone: 1(621) 825-711705-17-2025 History of Present illness Narrative* Lynne Ni [...] visit. Either the patient or their legal business office representative has been informed of the risks [...] may consider osteoporosis treatment if on long term care social worker steroids/abnormal bmd, take vitamin D script once [...] metoprolol for POTs, avoid aggravating triggers, long term care social worker pain recommendations per primary care provider/pain clinic/patient [...] measures, may consider osteoporosis treatment if on halfway steroids/abnormal bmd, take vitamin D script once [...] neurology/on metoprolol for POTs, avoid aggravating triggers, halfway pain recommendations per primary care provider/pain clinic/patient [...] measures, may consider osteoporosis treatment if on halfway steroids/abnormal bmd, take vitamin D script if [...] metoprolol for POTs, avoid aggravating triggers, long term care social worker pain recommendations per primary care provider/pain clinic/patient [...] neurology/on metoprolol for POTs, avoid aggravating triggers, halfway pain recommendations per primary care provider/pain clinic/patient [...] Due for eye exam. Labs sent to [facility]/completed in 06/2021 (no results faxed to office, but patient pulled up results on her phone). Chronic current pain in neck, flank area, mid back, knees, legs, arms, all over pain. Better with lyrica 75mg 3times a day. Reports pain 4-12/31. Couple hrs AM stiffness. COVID vaccine [employer] 09/28/20, 10/19/20, 05/26/21. Feels safe at [...] pain: yes H/o precedent/frequent infection(s): as above Enthesopathy/Eldorado's/heel/plantar tenderness: hands random painful/tingling Skin thickening, psoriasis, [...] COVID-19 original vaccine, age 12+ yr, monovalent (iApp4Me - PURPLE TOP) 09/28/2020 10/19/2020 05/26/2021 COVID-19 vaccine, age 12+ yr (CrunchyrollECH COMIRNATY) 02/23/2023 COVID-19 vaccine, age 12+ yr, bivalent (iApp4Me) 02/08/2022 Pneumovax no Flu shot no Tetanus [...] (33);NL cbc, cmp, negative hla b27; Outside [place] 06/2021 low vitamin D 16, vitamin b12-307;high [...] Z79.899 Long-term use of high-risk medication Z79.52 alf 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 M79.641, M79.642 [...] ures, may consider osteoporosis treatment if on halfway steroids/abnormal bmd, take vitamin D script once [...] metoprolol for POTs, avoid aggravating triggers, long term care social worker pain recommendations per primary care provider/pain clinic/patient [...] (200mg) daily with a meal Please see integrated program teacher every 6-12months while on Hydroxychloroquine. reStart azathioprine [...] touching your toes, sit-ups, using row machine halfway pain recommendations per primary care provider/pain clinic [...] video & audio (virtual) or phone or exjd-us-ukus patient care, completing clinical documentation, obtaining and/or [...] Workers' Compensation? No Do you need an historical interpreter? No [facility] MYCHART ZOOM MESSAGE Question 10/06/2024 9:06 PM [...] my health Strongly Agree documented in this encounterOhio [facility] System05-17-2025 [facility] Instructions* Patient Instructions* Lynne Ni MD [...] (200mg) daily with a meal Please see integrated program teacher every 6-12months while on Hydroxychloroquine. azathioprine daily [...] your toes, sit-ups, using row machine long term care social worker pain recommendations per primary care provider/pain clinic [...] your usual activities immediately. documented in this encounterOhio State Health System05-16-2025 Telephone encounter Note * Telephone Encounter - Beatriz Sanchez LPN - 10/06/2024 1:46 PM EDT VM left that below message forwarded to her . Requested return call if unable to view message. [facility]05-16-2025 Miscellaneous Notes* Telephone Encounter - Beatriz Sanchez [...] accordingly. Lynne Ni MD documented in this encounterOhio State Health System05-16-2025 Telephone encounter Note * Telephone Encounter - [...] above. Please process accordingly. Lynne Ni MD [facility]04-30-[facility]25 [facility] [facility]04-29-2025 History of Present illness Narrative* Deborah [...] GENETIC TESTING: None. SOCIAL HISTORY: Lives in [place], [place] with her and daughter. 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 - Partner's ethnicity: not applicable. - No known -Cypriot, Mediterranean, /Maldivian, Cook Islander-Orange/Cajun, or Ashkenazi Pentecostalism ancestry unless noted above. - Parental consanguinity: [...] via the connective tissue disorder panel at [facility] for Ariadna's daughter. Follow up [...] greater than 50% of which was spent csfe-ws-grgn counseling. This plan is being carried out per Dr. Beebe's recommendations. Deborah Arroyo MS, [facility] Licensed Genetic Counselor [facility] CC: Dr. Last Beebe CC: Ariadna Melissa Haley Via [employer] documented in this encounterOhio State Health System04-29-[address] [facility]04-29-[facility]04-29-[facility] History of Present illness Narrative* Ny Beebe MD - 09/19/2024 7:46 AM EDT Images from the original note were not included. Department of Medical Genetics and Genomics OUTPATIENT NEW VISIT NOTE Recording using ambient MWI software for draft documentation of the visit was discussed with the patient/authorized business office representative; all questions welcomed and answered. 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 Per PCP bzxesgqwwoHIKWW-pvqlio-zwqameejm (BMX 1:1:1) 1:1:1 liqd Take 5 mL [...] visit. PAST MEDICAL HISTORY: I have reviewed [facility] on September 19, 2024 PAST MEDICAL HISTORY [...] OF ablation SOCIAL HISTORY: - Lives in [place], [place] with her and daughters. - Highest level of education: High school. 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 Paternal - . - No known -Cypriot, Mediterranean, /Maldivian, Ashkenazi Pentecostalism, Cook Islander-Orange/Cajun, or Buddhism ancestry unless noted above. - Parental consanguinity: [...] pedigree was collected by Deborah Arroyo MS, [facility] at the patient's separate genetic counseling encounter. The pedigree will be scanned into [employer]. This information was reviewed with thefamily and [...] Management For Physiotherapists by Katarina Reza (Eds.), [facility], 2003, ISBN [id number]; Examination and Treatment of a Patient with [...] symptoms when present, recommending follow-up with a radio mechanic helper. 2. Chronic pain syndrome (G89.4) Chronic joint [...] 87 minutes was spent with patient for yskj-aq-ywzm evaluation, discussion of genetic differential diagnoses, management plan, counseling, chart review, documentation and coordination of care. Portions of family history were obtained by Deborah Arroyo MS, [facility], which were reviewed with family and edited as necessary. All questions were answered to the best of my knowledge. Contact information has been provided to the patient. Ny Beebe MD Staff Machine Package Sealer Department of Medical Genetics and Genomics (DMGG) [facility] Appointments: [facility] CC: Deborah Arroyo MS, [facility] Ariadna Haley (via [employer]) [address] [place] [id number] Lynne Ni MD CC to PCP via fax: Manuel Ferris [address] [place] [address] documented in this encounterOhio State Health System04-28-2025 Telephone encounter Note * Telephone Encounter - Lynne Ni MD - 09/18/2024 4:52 PM EDT Notify patient medication sent as requested Thank you. Patient's request for medication is as follows: Requested Prescriptions Pending Prescriptions Disp Refills belimumab (BENLYSTA) 200 mg/mL auto-injector 12 mL 3 Sig: Inject 200mg (1 pen) subcutaneously once weekly Prescription(s) as above. Please process accordingly. Lynne Ni MD [facility]04-28-2025 Miscellaneous Notes* Telephone Encounter - Lynne Ni [...] needs refill of Benlysta Date of Ariadna aHley's last Rheumatology office visit: 03/18/24 Next appointment date: 10/07/24 Last labs: 08/29/24 Last TB test: TB Result Date Value Ref Range Status 03/23/2024 Negative Final Requested Prescriptions Pending Prescriptions Disp Refills belimumab (BENLYSTA) 200 mg/mL auto-injector 12 mL 3 Sig: Inject 200mg (1 pen) subcutaneously once weekly Patient prefers: [facility] Thank you! Maria Esther Pichardo, PharmD Clinical Pharmacist, [employer] [facility] ; Pool: [facility] Pool #: [id number] documented in this encounterOhio State Health System04-28-2025 Telephone encounter Note * Telephone Encounter - Macarena Sanchez - 09/18/2024 4:03 PM EDT Patient will be calling to reschedule her IV IG and benlysta. She needs to find a planner and will call back with the dates that she will be available. [facility]04-28-[facility]25 Miscellaneous Notes* Telephone Encounter - Macarena Sanchez - 09/18/2024 4:03 PM EDT Patient will be calling to reschedule her IV IG and benlysta. She needs to find a planner and will call back with the dates that she will be available. documented in this encounterOhio State Health System04-28-2025 Telephone encounter Note * Telephone Encounter - [...] (1 pen) subcutaneously once weekly Patient prefers: [facility] Thank you! Maria Esther Pichardo, PharmD Clinical Pharmacist, [employer] [facility] ; Pool: [facility] Pool #: [id number] [facility]04-22-2025 Telephone encounter Note* Telephone Encounter - Karina Pino - 09/12/2024 2:35 PM EDT Patient has been scheduled at [facility]04-22-2025 Miscellaneous Notes* Telephone Encounter - Karina Pino - 09/12/2024 2:35 PM EDT Patient has been scheduled at [facility] * Telephone Encounter - Sherrie Cortes - [...] below scheduling for the drug. Cesilia Hicks [facility] You25 minutes ago (11:20 AM) [...] to Rheum provider. Anahi Becerril RN nurse manager pharmaceutical: patient would like to know if she can bring her 8 year old to treatmentsin the summer. Basia Samuel RN documented in this encounterOhio State Health System04-22-2025 Telephone encounter Note * Telephone Encounter - Sherrie Cortes - 09/12/2024 2:13 PM EDT Patient called back and is now in agreement to schedule for Benlysta. Patient has been scheduled for Wednesday, 09/18. She will make her future appointments at this visit when she can work around her family arrangements. Spoke w/ T Schneider regarding daughter recommendations and patient informed. Sherrie Cortes [facility]04-21-2025 Telephone encounter Note* Telephone Encounter - Sherrie [...] below scheduling for the drug. Cesilia Hicks [facility] You25 minutes ago (11:20 AM) Please schedule her every 2 weeks for 3 doses, then every 4 weeks for Benlysta. ThanksCesilia Laura [facility] You27 minutes ago (11:18 AM) LS Auth is submitted and pending - okay to set her up 7+ days out. When you call her ask her when she had her last SQ dose, per the provider okay to schedule the IV dose 1 week after her SQ dose. ThanksCesilia [facility]04-17-2025 Telephone encounter Note* Telephone Encounter - Lynne Ni MD - 09/07/2024 12:52 PM EDT Please start prior authorization for IV benlysta Signed therapy plan with loading doses if approved by insurance. May schedule 1week after last sq injection benlysta pen if approved. Thank you [facility]04-17-2025 Telephone encounter Note* Telephone Encounter - Enma Hamm RN - 09/07/2024 9:04 AM EDT Results discussed with pt. She is set for IVIG 10/04/24. She denies further questions needs or concerns at this time. Enma Hamm RN [facility]04-17-2025 Miscellaneous Notes* Telephone Encounter - Enma Hamm RN - 09/07/2024 9:04 AM EDT Results discussed with pt. She is set for IVIG 10/04/24. She denies further questions needs or concerns at this time. Enma Hamm RN documented in this encounterOhio State Health System04-16-2025 Evaluation note* Diagnosis Onset Date Resolution Status Admit Date Lumbosacral spondylosis acute A pril 2024 3:42pm Other chronic pain acute September 06, 2024 3:42pm Sacroiliitis acute September 06, 2024 3:42pm Lumbosacral spondylosis acute J une 2024 11:15am Other chronic pain acute October 232024 11:15am Sacroiliitis acute November 13 11:15am [facility] Work Phone: 1(143) 231-377504-16-2025 Evaluation note* Diagnosis Onset Date Resolution Status [...] Sacroiliitis acute November 30 025 9:03am [facility] Work Phone: 1(952) 894-463504-16-2025 Telephone encounter Note* Telephone Encounter - Basia Samuel RN - 09/06/2024 4:20 PM EDT Patient has requested to switch from Benlysta injections to infusions. Will forward to Rheum provider. Anahi Becerril RN nurse manager pharmaceutical: patient would like to know if she [facility] 8 [facility]. Basia Samuel RN [facility]04-16-2025 History of Present illness Narrative* Vaibhav Carvalho APRN.TRUE - 09/06/2024 9:00 AM EDT Images from the original note were not included. NAME: Ariadna Haley CLINIC NO.: [id number] DATE OF SERVICE: September 06, 2024 (Deven) [...] lower lip done 2 days ago at [facility] - awaiting results. B12 helps [...] injections. Shefollows with multiple doctors including and page technician, oil gauger, farmworker bulbs and PCP. She has been told they [...] THREE TIMES A DAY^Disp: 135 tablet^Rfl: 1 btxhexycilGXZFI-gbvpub-hhvvmzeps (BMX 1:1:1) 1:1:1 liqd^Take 5 mL by [...] (Crohn's [Other]) Mother . Vaibhav Carvalho APRN, CORRUGATOR OPERATOR HELPER-C, [facility] Provided at: [place], [place] CC: Manuel Ferris MD [address] [facility] [address] documented in this encounterOhio State Health System04-16-2025 [facility]04-14-20[facility] History of Present illness Narrative* Gordo Barfield MD - 09/04/2024 3:20 PM EDT Subjective Patient ID: Ariadna Haley is a 43 y.o. female who presents for Thyroid Nodule (Follow up ultrasound [facility] 08/24/24) Thyroid US shows a 28e8v4gs left inf pole TR4 nodule. 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 Patient stated will complete labs a walk in [facility]04-12-[facility] Miscellaneous Notes* Telephone Encounter - Blank Kimball [...] diagnoses: Vitamin D deficiency documented in this encounterOhio State Health System04-11-2025 Telephone encounter Note * Telephone Encounter - [...] above. Please process accordingly. Lynne Ni MD [facility]04-11-2025 Telephone encounter Note* Telephone Encounter - Cora [...] Ni MD Assoc. diagnoses: Vitamin D deficiency [facility]04-07-2025 Telephone encounter Note* Telephone Encounter - Renea Schneider MA - 08/28/2024 11:04 AM EDT Do you want labs? Patient coming in Wednesday09/06/24 for follow up treatment. ThanksRenea MA T [facility]04-01-2025 Miscellaneous Notes* Telephone Encounter - Renea Schneider MA - 08/28/2024 11:04 AM EDT Do you want labs? Patient coming in Wednesday09/06/24 for follow up treatment. Thanks, Renea Schneider MA documented in this encounterOhio State Health System04-01-2025 Miscellaneous Notes* Telephone Encounter - Renea Schneider MA - 11/20/2024 12:00 PM EDT Patient coming in for treatment visit Wednesday11/29/24. Please add lab orders. thanks. Renea Schneider MA documented in this encounterOhio State Health System03-27-2025 NoteSt. [facility]03-18-2025 Telephone encounter Note* Telephone Encounter - [...] and patient is aware. Basia Samuel RN [facility]03-18-2025 Miscellaneous Notes* Telephone Encounter - Baisa Samuel RN - 08/08/2024 10:27 AM EDT [...] aware. Basia Samuel RN documented in this encounterOhio State Health System03-18-2025 NoteSt. [facility]03-18-2025 History of Present illness Narrative* Basia Samuel RN - 08/08/2024 9:03 AM EDT Patient states that she spoke with provider and she will defer IV iron for now, she is taking oral iron and will have labs rechecked in 1 month Basia Samuel RN documented in this encounterOhio State Health System03-05-2025 History of Present illness Narrative* Lois Holm [...] lupus being treated by rheumatology at the [facility] on steroids, Plaquenil and monoclonal antibody 5-obstructive [...] , Rfl: ergocalciferol (Vitamin D-2) 1.25 MG (46864 UT) capsule, Take 1 capsule (50,000 Units) [...] exam, discussion and plan. documented in this encounterSelect [facility] Work Phone: [phone]) 337-607503-05-2025 Instructions* Patient Instructions* Aissatou Hanson RN - [...] time of your visit. documented in this encounterSelect [facility] Work Phone: 1(903) 918-893203-04-2025 History of Present illness Narrative* Bernabe English [...] ointment bid. On Plaquenil and Benlysta from oil gauger and started IVIG from collision estimator. Follow up Diagnosis: Hidradenitis Location: thighs Last [...] given frequent flares of thrush. Start Nystatin 726330 unit suspension qid x 14 days. Recommended [...] not swallow it. Related Medications nystatin (Mycostatin) 416573 UNIT/ML suspension Take 4 mL (400,000 Units) [...] is needed. Instructed to follow up with COLLECTIONS ANALYST for further work up. Next Visit: 1 year documented in this encounterNortheast Regional Medical [id number] History of Present illness Narrative* Luna Emanuel [...] been reviewed prior to dispensing the medication. Cardiac Exercise Specialist Assessment Patient confirmed: Yes Med/dose confirmed: Yes Supplies needed: No supplies needed Missed doses: No Copay amount: 0 Payment confirmed: Yes Delivery method: FedEx Signature required: Waived on patient request Delivery address: [address] [place] [address], [place] [address] Delivery date: 07/27/24 Questions or concerns for the pharmacist?: No Did you have any side effects believed to be related to this medication, that resulted in hospitalization?: No Current Outpatient Medications on File Prior to Visit Medication Sig rskysaifdfFPQJU-bosdbc-zjwnucrmu (BMX 1:1:1) 1:1:1 liqd Take 5 mL [...] longer tolerated. Luna Emanuel documented in this encounterOhio State Health System03-04-2025 NoteSt. [facility] Hospital02-27-2025 NoteHNO ID: [id number] Author: ALHAJI HEAD, DO Service: ? Author Type: Physician Type: Progress Notes Filed: 07/21/2024 13:05 Note Text: VIRTUAL VISIT PROGRESS NOTE This is a virtual visit using [employer] Video Visit. It required patient-provider interaction for the medical decision making as documented below. I have communicated my name and active licensure. The patient's identity and physical location were verified at the time of this visit. Either the patient or their legal business office representative has been informed of the risks [...] of 18 Current Outpatient Medications Medication Sig aajwtangzuNCQQN-cbclnh-gbrocopmb (BMX 1:1:1) 1:1:1 liqd Take 5 mL [...] WHILE ON* belimumab ( (more content not included)...[facility]02-27-2025 History of Present illness Narrative* Alhaji Head DO - 07/20/2024 11:41 AM EST VIRTUAL VISIT PROGRESS NOTE This is a virtual visit using [employer] Zoom Video Visit. It required patient- provider interaction for the medical decision making as documented below. I have communicated my name and active licensure. The patient's identity and physical location wereverified at the time of this visit. Either the patient or their legal business office representative has been informed of the risks [...] of 18 Current Outpatient Medications Medication Sig qkbrfauuxkBTSTO-itdjct-nefxoblqf (BMX 1:1:1) 1:1:1 liqd Take 5 mL [...] on the R. The patient or authorized business office representative has agreed to proceed with the [...] axillary nodule which is being followed by roll tender. Through shared decision making with the patient, [...] DO July 21, 2024 documented in this encounterOhio State Health System02-26-2025 Procedure noteHe[place] [id number] Pain Management Procedure Note Signed Patient: Ariadna Haley MR#: [id number] : 1980 Acct:[id number] Age/Sex: 43 / F Adm Date: 5 Loc: Room: Type: [facility] Attending Dr: Adolfo Kang MD Copies to: [...] MD 07/19/24 1104 Signed By: 07/19/24 1134 [facility]02-19-2025 Instructions* Patient Instructions* Marky Barnes PA-C - 07/12/2024 2:33 PM EST Alginate therapy (Reflux Raft, Reflux Gourmet) documented in this encounterOhio State Health System02-19-2025 NoteSt. [facility] Of [facility] Hospital02-19-2025 History of Present illness Narrative* Marky Barnes PA-C - 07/12/2024 2:14 PM EST Images from the original note were not included. [facility] NOTE CC: Ariadna Haley is a [...] Current medication(s): Current Outpatient Medications Medication Sig ikjcazghylQKUJM-svpfxr-mtptqpwry (BMX 1:1:1) 1:1:1 liqd Take 5 mL [...] Level: 3 - Low documented in this encounterOhio State Health System02-17-2025 Evaluation note* Diagnosis Onset Date Resolution Status Admit Date Lumbosacral spondylosis acute F ebruary 2024 3:16pm Other chronic pain acute Februa 2024 3:16pm Sacroiliitis acute June 3:16pm [facility] Work Phone: [phone]) 827-893802-17-2025 Evaluation note* Diagnosis Onset Date Resolution Status Admit Date Lumbosacral spondylosis acute F ebruary 2024 3:16pm Other chronic pain acute Februa 2024 3:16pm Sacroiliitis acute June 3:16pm Lumbosacral spondylosis acute M 2024 3:40pm Other chronic pain acute July 31, 2024 3:40pm Sacroiliitis acute July 31, 2024 3:40pm [facility] Work Phone: [phone]) 946-604602-17-2025 Telephone encounter Note* Telephone Encounter - Krista Braswell MA - 07/10/2024 7:28 AM EST Pt was notified via . [facility]02-17-2025 Miscellaneous Notes* Telephone Encounter - Krista Fonseca [...] accordingly. Lynne Ni MD documented in this encounterOhio State Health System02-16-2025 Telephone encounter Note * Telephone Encounter - [...] above. Please process accordingly. Lynne Ni MD [facility]02-06-2025 History of Present illness Narrative* Luna Emanuel [...] been reviewed prior to dispensing the medication. Cardiac Exercise Specialist Assessment Patient confirmed: Yes Med/dose confirmed: Yes Supplies needed: No supplies needed Missed doses: No Estimated days supply on hand: 1 Copay amount: 0 Payment confirmed: Yes Delivery method: FedEx Signature required: Waived on patient request Delivery address: [address] [place] [address] Delivery date: 07/05/24 Questions or concerns for [...] longer tolerated. Luna Emanuel documented in this encounterOhio State Health System02-06-2025 NoteSt. [facility] Of [facility] Hospital01-31-2025 Telephone encounter Note* Telephone Encounter - Krista Fonseca MA - 06/23/2024 8:27 AM EST Pt has been notified via Snapsort. [facility]01-31-2025 Miscellaneous Notes* Telephone Encounter - Krista Fonseca MA - 06/23/2024 8:27 AM EST Pt has been notified via Snapsort. * Telephone Encounter - Lynne Ni MD [...] accordingly. Lynne Ni MD documented in this encounterOhio State Health System01-30-2025 Telephone encounter Note * Telephone Encounter - [...] nsaids) Prescription(s) as above. Please process accordingly. Lynen Ni MD [facility]01-29-2025 Telephone encounter Note* Telephone Encounter - Sherrie Cortes - 06/21/2024 2:10 PM EST Thanks for the clarification! I didn't schedule the patient yet for Iron because of the question below so we are all good. Thank you! Sherrie Cortes [facility]01-29-2025 Miscellaneous Notes* Telephone Encounter - Sherrie Cortes [...] we will recheck. thanks documented in this encounterOhio State Health System01-29-2025 Telephone encounter Note * Telephone Encounter - [...] is aware you will call if needed. [facility]01-29-2025 Telephone encounter Note* Telephone Encounter - Vaibhav Carvalho APRN.TRUE - 06/21/2024 1:07 PM EST Ok that is fine she can try oral iron Ferrous sulfate 325 mg every other day. Ok to keep her next appointment and we will recheck. thanks [facility]01-28-2025 Telephone encounter Note* Telephone Encounter - Sherrie Cortes - 06/20/2024 8:38 AM EST Left another message for patient. Sent MyChart to call back to schedule infusions when she's ready to schedule and provided phone number. Sherrie Cortes [facility]01-28-2025 Miscellaneous Notes* Telephone Encounter - Sherrie Cortes [...] callback with any questions. documented in this encounterOhio State Health System01-24-2025 Telephone encounter Note * Telephone Encounter - Sherrie Cortes - 06/16/2024 3:32 PM EST Call placed to patient, no answer. Left detailed message to call back to schedule for Venofer. Sherrie Cortes [facility]01-24-2025 Telephone encounter Note* Telephone Encounter - Vaibhav Carvalho APRN.CNP - 06/16/2024 12:26 PM EST Called patient and left a message regarding iron infusions. I did inform patient that she is low oniron and we can replace with IV infusion. Will have the office call to schedule. Encouraged to callback with any questions. [facility]01-23-2025 Telephone encounter Note* Telephone Encounter - KELVIN [...] Pt had recent mamm[facility] that was negative [facility] CenterXfvilnxapv97-46-1008 Miscellaneous Notes* Telephone Encounter - KELVIN Cabrera [...] mammogram that was negative documented in this encounterNortheast Regional Medical [id number] History of Present illness Narrative* Iraida Pate APRN.[facility] - 06/14/2024 10:43 AM EST Glucose - SIBO CPT 11819 Hydrogen Breath Test Ariadna Haley 1980 June 14, 2024 Referring Physician: Bandar Portillo NP Indication: NSG TEST INDICATIONS: Diarrhea R19.7, Abdominal Pressure R10.9 Weight: 275 lbs Location: [facility] Duration of Test: 2 hrs [...] Test Results: negative Physician Signature: Iraida Pate APRN.SPEECH THERAPY DIRECTOR documented in this encounterOhio State Health System01-21-2025 Progress note* [facility] - Dionne Driver [...] 13, 2024 TIME: 10:29 AM PAGER/CONTACT #: [facility]01-21-2025 Miscellaneous Notes* [facility] - Dionne Driver [...] 10:29 AM PAGER/CONTACT #: documented in this encounterOhio State Health System01-21-2025 NoteSt. [facility] Of [facility] Hospital01-21-2025 History of Present illness Narrative* Vaibhav Carvalho APRN.CNP - 06/13/2024 9:07 AM EST Images from the original note were not included. NAME: Ariadna Haley [facility] NO.: [id number] DATE OF SERVICE: June 13, 2024 (Deven) Some elements in this clinic [...] lower lip done 2 days ago at [facility] - awaiting results. B12 helps [...] injections. Shefollows with multiple doctors including and page technician, oil gauger, farmworker bulbs and PCP. She has been told they [...] (Crohn's [Other]) Mother . Vaibhav Carvalho APRN, CORRUGATOR OPERATOR HELPER-C, [facility] Provided at: [place], [place] CC: Manuel Ferris MD [facility] [place] [address] documented in this encounterOhio State Health System01-20-2025 NoteSt. [facility] Of [facility] Hospital01-20-2025 History of Present illness Narrative* Lee Friedman - 06/12/2024 2:31 PM EST CMN RECEIVED BY LP Amina [facility] VIA FAX, COMPLETED, AND PLACED IN PROVIDER MAILBOX FOR SIGNATURE Lee Friedman Coordinator III [employer] SENDING CMN: Josh SIGNED AND DATED CMN, FAXED TO DME & CONFIRMATION PAGE RECEIVED: 06.28.2024 documented in this encounterOhio State Health System01-20-2025 Telephone encounter Note * Telephone Encounter - Margret Cuenca MA - 06/12/2024 12:00 PM EST Patient has an OTV appointment on 06/13. Please place lab orders. Margret Cuenca MA [facility]01-20-2025 Miscellaneous Notes* Telephone Encounter - Margret Cuenca MA - 06/12/2024 12:00 PM EST Patient has an OTV appointment on 06/13. Please place lab orders. Margret Cuenca MA documented in this encounterOhio State Health System01-14-2025 History of Present illness Narrative* Luna Emanuel [...] been reviewed prior to dispensing the medication. Cardiac Exercise Specialist Assessment Patient confirmed: Yes Med/dose confirmed: Yes Supplies needed: No supplies needed Missed doses: No Estimated days supply on hand: 1 Copay amount: 0 Payment confirmed: Yes Delivery method: FedEx Signature required: Waived on patient request Delivery address: [address] [place] [address] Delivery date: 06/08/24 Questions or concerns for [...] longer tolerated. Luna Emanuel documented in this encounterOhio State Health System01-14-2025 NoteSt. 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 Depression, recurrent ([facility]) 06/09/2023 Discoid lupus erythematosus ([facility]) 02/14/2022 Disturbance of skin sensation 07/06/2023 Elevated sed rate 03/05/2021 High total serum IgM 03/05/2021 Enthesopathy of hip region 07/06/2023 Essential hypertension ([facility]) 06/09/2023 Excessive and frequent menstruation with irregular cycle 09/24/2022 Family history of Crohn's disease 03/05/2021 Hair loss 03/05/2021 Hyperlipidemia ([facility]) 05/31/2014 alf 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 02/04/2023 Long-term use of high-risk medication 06/15/2022 Long-term use of Plaquenil 03/05/2021 LPRD (laryngopharyngeal reflux disease) 07/06/2023 Megaloblastic anemia due to vitamin B12 deficiency 03/04/2022 Myalgia 07/06/2023 Obesity, Class III, BMI 40-49.9 (morbid obesity) ([facility]) 09/07/2022 Obstructive sleep apnea syndrome 05/20/2022 Oral lesion 07/06/2023 Pain, hip 07/06/2023 Rash and nonspecific skin eruption 03/05/2021 Steroid-induced osteoporosis (CMS/HCC) 02/04/2023 Somnolence, daytime 05/20/2022 Secondary osteoarthritis of multiple sites 03/05/2021 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 02/04/2023 Swelling of lymph nodes 03/05/2021 Vitamin D deficiency 03/06/2021 Vitamin B12 deficiency 05/31/2014 Pure hypercholesterolemia, unspecified ([facility]) 08/10/2023 Hoarse 08/10/2023 Thyroid nodule ([facility]) 08/10/2023 Shortness of breath 07/13/2023 Paroxysmal supraventricular tachycardia ([facility]) 07/13/2023 PAC (premature atrial contraction) 07/13/2023 [...] of removal of cyst 2012 HTN (hypertension) ([facility]) Hx of abnormal cervical Pap smear 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) Insulin resistance Laryngopharyngeal reflux disease Lupus Nonscarring hair loss, unspecified Nontoxic goiter, unspecified ([facility]) Nontoxic single thyroid nodule ([facility]) Numbness Oral thrush Sleep apnea Vitamin D deficiency, unspecified Weakness of limb HISTORY PAST MEDICAL HISTORY SOCIAL HISTORY Past Medical History: Diagnosis Date Anxiety Cervical lymphadenopathy Chronic laryngopharyngitis COVID-19 vaccine administered x 2 ([employer]) Difficulty walking Fatigue Fibromyalgia, primary GERD (gastroesophageal reflux disease) History of removal of cyst 2012 tailbone x2 HTN (hypertension) ([facility]) Hx of abnormal cervical Pap smear [...] behalf of: KELVIN Cabrera documented in this encounterNortheast Regional Medical [id number] NoteSt. John Of God Hospital12-23-2024 History of Present illness Narrative* Deisy Jaime LSW - 05/15/2024 9:09 AM EST Patient's name appears on the [facility] First Time Treatment Report for a non- oncology treatment. No psychosocial assessment is indicated. BILL Rosenberg Goals of Care Advance Directives are not on file. documented in this encounterOhio State Health System12-20-2024 History of Present illness Narrative* Luna Emanuel [...] been reviewed prior to dispensing the medication. Cardiac Exercise Specialist Assessment Patient confirmed: Yes Med/dose confirmed: Yes Supplies needed: No supplies needed Missed doses: No Estimated days supply on hand: 1 Copay amount: 0 Payment confirmed: Yes Delivery method: FedEx Signature required: Waived on patient request Delivery address: [address] [place] [id number] Delivery date: 05/16/24 Questions or concerns for [...] longer tolerated. Luna Emanuel documented in this encounterOhio State Health System12-20-2024 NoteSt. [facility] Of [facility] Hospital12-04-2024 Nurse Note* Radha Schofield MA - 04/26/2024 9:32 AM EST Patient Identification confirmed: yes. Injection given and documented on MAR per provider order. Radha Schofield MA [facility]12-04-2024 Nurse Note* Radha Schofield MA - 04/26/2024 9:32 AM EST Patient Identification confirmed: yes. Injection given and documented on MAR per provider order. Radha Schofield MA documented in this encounterOhio State Health System11-22-2024 Telephone encounter Note * Telephone Encounter - Gay Barnett - 04/14/2024 12:11 PM EST Patient coming in for a sibo breath test on Wednesday and has been on keflex for 3 days and needs to be on for ten so she will need to reschedule [facility]11-22-2024 Miscellaneous Notes* Telephone Encounter - Gay Barnett - 04/14/2024 12:11 PM EST Patient coming in for a sibo breath test on Wednesday and has been on keflex for 3 days and needs to be on for ten so she will need to reschedule documented in this encounterOhio State Health System11-19-2024 NoteSt. [facility] Hospital11-18-2024 Miscellaneous Notes* Telephone Encounter - Sherrie [...] Please advise. Sherrie Cortes documented in this encounterOhio State Health System11-18-2024 Telephone encounter Note * Telephone Encounter - Sherrie Cortes - 04/10/2024 2:12 PM EST Patient requested this appointment be rescheduled for the end of April. She has been scheduled for 05/19, she is all set. Thank you! Sherrie Cortes [facility]11-18-2024 Telephone encounter Note* Telephone Encounter - Shantel Arce RPh - 04/10/2024 2:07 PM EST SUBQ products (eg, 20% [Cuvitru, Hizentra, Xembify]) or IM products (eg, 16% [GamaSTAN]) intravenously. It would depend upon insurance coverage and would be done as a retail prescription at designated insurance specialty pharmacy. Elpidio Arce, PharmD, BCOP [facility] Work Phone: 1(676) 978-120911-18-2024 Telephone encounter Note* Telephone Encounter - Enma [...] appt per pt request Enma Hamm RN [facility]11-18-2024 Telephone encounter Note* Telephone Encounter - Enma Hamm RN - 04/10/2024 12:54 PM EST Called to discuss with pt. She was researching online and found SCIG a weekly subq injection to give herself that is less dose, and has less side effects. Pharmacy/[facility]: please advise Enma Hamm RN [facility]11-18-2024 Telephone encounter Note* Telephone Encounter - Vera Najera MD - 04/10/2024 12:26 PM EST Really sorry - I don't recall the home infusion of IVIG - I think it is safer to give it to her in-house as IV so we can monitor infusion reactions. Sorry if I created a misunderstanding. [facility]11-18-2024 History of Present illness Narrative* Gordo Barfield [...] Ambulatory Problems Diagnosis Date Noted Autoimmune disease ([facility]) 06/01/2023 Fibromyalgia 06/01/2023 Autonomic dysfunction 06/01/2023 [...] 03/05/2021 Hair loss 03/05/2021 Hyperlipidemia (CMS/HCC) 05/31/2014 alf 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 02/04/2023 Long-term use of high-risk medication 06/15/2022 Long-term use of Plaquenil 03/05/2021 LPRD (laryngopharyngeal reflux disease) 07/06/2023 Megaloblastic anemia due to vitamin B12 deficiency 03/04/2022 Myalgia 07/06/2023 Obesity, Class III, BMI 40-49.9 (morbid obesity) ([facility]) 09/07/2022 Obstructive sleep apnea syndrome 05/20/2022 [...] of removal of cyst 2012 HTN (hypertension) ([facility]) Hx of abnormal cervical Pap smear [...] AREA NEEDED ergocalciferol (Vitamin D2) 1.25 MG (21298 UT) capsule Take 50,000 Units by mouth [...] referred from the [facility] documented in this encounterNortheast Regional Medical [id number] Telephone encounter Note* Telephone Encounter - Sherrie [...] Triage was involved? Please advise. Sherrie Cortes [facility]11-15-2024 NoteSt. [facility]11-15-2024 History of Present illness Narrative* Deisy Jaime LSW - 04/07/2024 9:30 AM EST Patient's name appears on the [facility] First Time Treatment List for a non- oncology treatment. No psychosocial assessment is indicated. BILL Rosenberg Goals of Care Advance Directives are not on file SIGNATURE: JUSTICE Rosenberg PATIENT NAME: Ariadna Haley DATE: April 07, 2024 TIME: 9:31 AM PAGER/CONTACT #: documented in this encounterOhio State Health System11-14-2024 Evaluation + Plan note* Assessment & Plan [...] her Raynaud's. All her questions were answered. Huan Xiong [id number] Miscellaneous Notes* Assessment & Plan Note - [...] her questions were answered. documented in this encounterDetwiler Memorial HospitalTrover Eaton Rapids Medical [id number] History of Present illness Narrative* Hayden Arciniega [...] Interpersonal Safety: Unknown (07/15/2023) Received from [facility] Fear of Current or [...] Assessment and Plan: Problem List Rheumatoid arthritis ([facility]) Relevant Medications ibuprofen (ADVIL,MOTRIN) 200 mg tablet predniSONE (STERAPRED DS) 10 mg tablet pack Systemic lupus erythematosus ([facility]) - Primary Relevant Medications ibuprofen (ADVIL,MOTRIN) 200 [...] orders for this visit: Systemic lupus erythematosus ([facility]) - Vas art doppler lwr bilat mult lev/PVR; Future Cold extremities - [facility] - [place], [place] - Vas art doppler lwr bilat mult lev/PVR; Future Pain of lower extremity, unspecified laterality - [facility] - [place], [place] - Vas art doppler lwr bilat mult lev/PVR; Future Rheumatoid arthritis, involving unspecified site, unspecified whether rheumatoid factor present ([facility]) Current smoker 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 Hayden [...] you for your understanding. documented in this encounter[facility] [place] Instructions* Patient Instructions* Hayden Arciniega MD - 04/06/2024 9:40 AM EST Are You Ready To Kick The Habit? Free Tobacco Cessation Resources [facility] Services [facility] provide all employees with free tobacco cessation services that include: Counseling to understand nicotine addiction Education about medications that can help you successfully quit Assistance with developing a plan to quit Call to set up an individual appointment or find out when group classes will be held: [facility]: [phone] [facility]: [phone] [facility]: [phone] [facility]: [phone] Quit Smoking Action Plan and Resources [facility] offers an eight-week, online smoking cessation plan to all [facility] employees, regardless of whether Alexandra is your medical insurance provider. Go to [email or web address]/employeewellness and click the Health Risk Assessment and Resources link to get started. In the Clrso0Lxovfv menu, click Action Plans instead of Health Risk Assessment to access the Quit Smoking Action Plan. Additional smoking cessation resources are also available to all [facility] employees on the Xfpak8Ocpprh web page at www.New.net/quitsmoking. [employer] Tobacco Cessation Program If [employer] is your medical insurance provider, there are more free resources available to you, including: No copays or deductibles on local tobacco cessation counseling services to help you quit Prescription assistance for tobacco cessation medications to help you quit For details about the tobacco cessation program available to [employer] members, go to www.New.net (Search: Tobacco Cessation Program). [place] Tobacco Quit Line 7-719-HNIC-NOW ( ) is a toll-free, telephonic service that helps [place] residents quit smoking and using tobacco. It is staffed by experts who tailor a quit plan for you and provide you with advice. [place] Tobacco Quit Line 5-141-ICIE-NOW ( ) is a toll-free, telephonic service that helps [place] residents quit smoking and using tobacco. It is staffed by experts who tailor a quit plan for you and provide you with advice. Two weeks of nicotine replacement therapy may be provided at no charge, if needed. Additional Resources These national organizations also offer free information and resources to help you quit tobacco: [place] [employer]--www.cancer.org/healthy/stayawayfromtobacco [place] Heart [employer]--www.heart.org (Search: Quit Smoking) Centers for Disease Control and Prevention--www.cdc.gov/tobacco [place] Lung Association--www.lungusa.org documented in this encounterSt. Albans HospitalAgricultural Food Systems, LLC [phone] Telephone encounter Note* Telephone Encounter - Marky Mike DO - 04/03/2024 9:36 AM EST Changed terbinafine to itraconazole at pt request. [facility] [id number] Miscellaneous Notes* Telephone Encounter - Marky Mike DO - 04/03/2024 9:36 AM EST Changed terbinafine to itraconazole at pt request. documented in this encounterNortheast Regional Medical [id number] Telephone encounter Note* Telephone Encounter - Lynne [...] above. Please process accordingly. Lynne Ni MD [facility]11-10-2024 Miscellaneous Notes* Telephone Encounter - Lynne Ni [...] accordingly. Lynne Ni MD documented in this encounterOhio State Health System11-10-2024 History of Present illness Narrative* Marky Mike [...] with her immunosuppressive therapy. documented in this encounterNortheast Regional Medical [id number] Instructions* Patient Instructions* Vera Najera MD - 04/01/2024 4:28 PM EST Obtain body fluid culture from [facility]. B12 shot today and every 4 weeks. Continue Folic acid. Frequent infections plan IVIG for hypogammaglobulinemia Start when approved. RTC 3 months repeat labs same day. IVIG same day. documented in this encounterOhio State Health System11-08-2024 NoteSt. [facility]11-08-2024 History of Present illness Narrative* Ashly Castillo - 03/31/2024 12:29 PM EST CMN RECEIVED BY [employer] VIA FAX, COMPLETED, AND PLACED IN PROVIDER MAILBOX FOR SIGNATURE Ashly Castillo Chute Boss II 03/31/2024 [employer] SENDING CMN: JOSH SIGNED AND DATED CMN, FAXED TO DME & CONFIRMATION PAGE RECEIVED: 04/11/2024 documented in this encounterOhio State Health System11-07-2024 Telephone encounter Note * Telephone Encounter - Mae Elaine - 03/30/2024 8:01 AM EST Pt is scheduled and instructions were sent thru my chart. [facility]11-07-2024 Miscellaneous Notes* Telephone Encounter - Mae Elaine - 03/30/2024 8:01 AM EST Pt is scheduled and instructions were sent thru my chart. * Telephone Encounter - Mae Elaine - 03/29/2024 9:02 AM EST Im for pt- saved time on 04/18 7:45 Also sent [employer] g. dm * Telephone Encounter - Mae Elaine - 03/20/2024 12:37 PM EDT Images from the original note were not included. documented in this encounterOhio State Health System11-06-2024 Telephone encounter Note * Telephone Encounter - Mae Elaine - 03/29/2024 9:02 AM EST Im for pt- saved time on 04/18 7:45 Also sent [employer] msg. dm [facility]11-04-2024 NoteSt. [facility] Hospital11-04-2024 History of Present illness Narrative* Vera Najera MD - 03/27/2024 3:03 PM EST Images from the original note were not included. NAME: Ariadna Haley [facility] NO.: [id number] DATE OF SERVICE: March 27, 2024 (Marquis) Some elements in this clinic note that are critical to medical decision making have been carefully reviewed and included from a prior clinic note dated: December 27, 2023 (Liz) Referring Provider: Dr. Manuel Ferris Additional Clinicians involved in Ariadna Haley's care: VIRTUAL VISIT PROGRESS NOTE This is a virtual visit using Compliance 11 Clean Rice Broker Video Call. It required patient- provider interaction for the medical decision making as documented below. I have communicated my name and active licensure. The patient's identity and physical location wereverified at the time of this visit. Either the patient or their legal business office representative has been informed of the risks [...] noted. PLAN: Obtain body fluid culture from [facility]. B12 shot today and every 4 [...] lower lip done 2 days ago at [facility] - awaiting results. B12 helps [...] injections. Shefollows with multiple doctors including and page technician, oil gauger, farmworker bulbs and PCP. She has been told they [...] decreasing. Initial Visit, March 04, 2022: Ariadna Hlaey presents today Hematology and Oncology evaluation. She [...] CPE Hematology and Oncology Services Provided at: [place], [place] CC: Manuel Ferris MD [address] [facility] [address] documented in this encounterOhio State Health System10-31-2024 History of Present illness Narrative* KELVIN Cabrera [...] Ambulatory Problems Diagnosis Date Noted Autoimmune disease (CMS/FORMERLY [facility]) 06/01/2023 Fibromyalgia 06/01/2023 Autonomic dysfunction 06/01/2023 [...] Cytomegalovirus infection (HCC) (CMS/HCC) 07/06/2023 Depression, recurrent (CMS/FORMERLY [facility]) 06/09/2023 Discoid lupus erythematosus (CMS/HCC) 02/14/2022 Disturbance of skin sensation 07/06/2023 Elevated sed rate 03/05/2021 High total serum IgM 03/05/2021 Enthesopathy of hip region 07/06/2023 Essential hypertension (CMS/HCC) 06/09/2023 Excessive and frequent menstruation with irregular cycle 09/24/2022 Family history of Crohn's disease 03/05/2021 Hair loss 03/05/2021 Hyperlipidemia (CMS/HCC) 05/31/2014 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 02/04/2023 [...] unspecified (CMS/HCC) 08/10/2023 Hoarse 08/10/2023 Thyroid nodule ([facility]/HCC) 08/10/2023 Shortness of breath 07/13/2023 Paroxysmal supraventricular tachycardia ([facility]/FORMERLY [facility]) 07/13/2023 PAC (premature atrial contraction) 07/13/2023 [...] of removal of cyst 2012 HTN (hypertension) (CMS/FORMERLY [facility]) Hx of abnormal cervical Pap smear Insulin resistance Laryngopharyngeal reflux disease Lupus Numbness Oral thrush Prediabetes Sleep apnea Weakness of limb HISTORY PAST MEDICAL HISTORY SOCIAL HISTORY Past Medical History: Diagnosis Date Anxiety Cervical lymphadenopathy Chronic laryngopharyngitis COVID-19 vaccine administered x 2 ([employer]) Difficulty walking Fatigue Fibromyalgia, primary GERD (gastroesophageal reflux disease) History of removal of cyst 2012 tailbone x2 HTN (hypertension) (CMS/FORMERLY [facility]) Hx of abnormal cervical Pap smear Hyperlipidemia (CMS/[facility]ER[facility]) Insulin resistance Laryngopharyngeal reflux disease Lupus [...] behalf of: KELVIN Cabrera documented in this encounterNortheast Regional Medical [id number] Nurse Note* Stacy Gutiérrez MA - 03/23/2024 10:16 AM EDT Patient Identification confirmed: yes. Injection given and documented on MAR per provider order. Stacy Gutiérrez MA [facility]10-31-2024 Nurse Note* Stacy Gutiérrez MA - 03/23/2024 10:16 AM EDT Patient Identification confirmed: yes. Injection given and documented on MAR per provider order. Stacy Gutiérrez MA documented in this encounterOhio State Health System10-28-2024 Telephone encounter Note * Telephone Encounter - Mae Elaine - 03/20/2024 12:37 PM EDT Images from the original note were not included. [facility]10-26-2024 History of Present illness Narrative* Lynne Ni [...] visit. Either the patient or their legal business office representative has been informed of the risks [...] measures, may consider osteoporosis treatment if on halfway steroids/abnormal bmd, take vitamin D script once [...] metoprolol for POTs, avoid aggravating triggers, long term care social worker pain recommendations per primary care provider/pain clinic/patient [...] measures, may consider osteoporosis treatment if on halfway steroids/abnormal bmd, take vitamin D script if [...] neurology/on metoprolol for POTs, avoid aggravating triggers, halfway pain recommendations per primary care provider/pain clinic/patient [...] metoprolol for POTs, avoid aggravating triggers, long term care social worker pain recommendations per primary care provider/pain clinic/patient [...] Due for eye exam. Labs sent to [facility]/completed in 06/2021 (no results faxed to office, [...] COVID-19 original vaccine, age 12+ yr, monovalent ([employer]App[employer] - PURPLE TOP) 09/28/2020 10/19/2020 05/26/2021 COVID-19 vaccine, age 12+ yr ([employer]App[employer]Me COMIRNATY) 02/23/2023 COVID-19 vaccine, age 12+ yr, bivalent (iApp4Me) 02/08/2022 Pneumovax no Flu shot no Tetanus [...] (33);NL cbc, cmp, negative hla b27; Outside [place] 06/2021 low vitamin D 16, vitamin b12-307;high [...] systemic lupus erythematosus with other organ involvement ([facility]) (primary encounter diagnosis) M79.7 Fibromyalgia R76.8 CHRISTIAN positive Q79.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 Elevated sed rate E55.9 Vitamin D deficiency 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 M54.42, M54.41, G89.29 Chronic bilateral low back pain with bilateral sciatica M79.674, M79.675, G89.29 Chronic pain of toes of both feet Z79.899 Long-term use of high-risk medication Z79.52 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 Start azathioprine [...] touching your toes, sit-ups, using row machine halfway pain recommendations per primary care provider/pain clinic [...] video & audio (virtual) or phone or [id number] patient care, completing clinical documentation, obtaining and/or [...] Workers' Compensation? No Do you need an historical interpreter? No [facility] MYCHART ZOOM MESSAGE Question 03/16/2024 7:44 PM [...] of Right Forearm or Lower Left Leg. [place] PROMIS 10 ADULT SHORT FORM V1.0 GLOBAL [...] my health Strongly Agree documented in this encounterOhio State Health System10-26-2024 NoteSt. [facility] Of God Hospital10-26-2024 Instructions* Patient Instructions* Lynne Ni MD [...] (200mg) daily with a meal Please see integrated program teacher every 6-12months while on Hydroxychloroquine. azathioprine daily [...] your toes, sit-ups, using row machine long term care social worker pain recommendations per primary care provider/pain clinic [...] your usual activities immediately. documented in this encounterOhio State Health System10-25-2024 Telephone encounter Note * Telephone Encounter - [...] above. Please process accordingly. Lynne Ni MD [facility]10-25-2024 Miscellaneous Notes* Telephone Encounter - Lynne Ni [...] VIDEO SPEC EST 03/18/2024 9:00 AM RHEU COUNT INCLUDES THE [facility] REJ Last Ophthalmology Check for Plaquenil [...] Assoc. diagnoses: Pseudomonas infection documented in this encounterOhio State Health System10-25-2024 Telephone encounter Note * Telephone Encounter - [...] VIDEO SPEC EST 03/18/2024 9:00 AM RHEU COUNT INCLUDES THE [facility] RE[facility] Last Ophthalmology Check for Plaquenil [...] Alhaji Head DO Assoc. diagnoses: Pseudomonas infection [facility]10-24-2024 History of Present illness Narrative* Luan Valdivia [...] Ambulatory Problems Diagnosis Date Noted Autoimmune disease ([facility]) 06/01/2023 Fibromyalgia 06/01/2023 Autonomic dysfunction 06/01/2023 [...] Tobacco use disorder 07/06/2023 Cytomegalovirus infection (HCC) ([facility]) 07/06/2023 Depression, recurrent ([facility]) 06/09/2023 Discoid lupus erythematosus ([facility]) 02/14/2022 Disturbance of skin sensation 07/06/2023 Elevated sed rate 03/05/2021 High total serum IgM 03/05/2021 Enthesopathy of hip region 07/06/2023 Essential hypertension ([facility]) 06/09/2023 Excessive and frequent menstruation with irregular cycle 09/24/2022 Family history of Crohn's disease 03/05/2021 Hair loss 03/05/2021 Hyperlipidemia (CMS/HCC) 05/31/2014 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 Exam conducted with a prawn trawler hand present. Vitals: Estimated body mass index is [...] Disease with Dr. Kelsey and Specialist at [facility]. Patient voiced that Dr. Kelsey recommended surgery, but patient feels that maybe excessive. Specialist at [facility] suggested monitoring. Patient has had mammogram. Patient does not put anything on her breast.Ruled out Mondor's Breast concerns. Discussed [place] [employer] at night and Vitamin E lotion. Patient voiced that her breast feel brambila and heavier. Discussed growth of breast and proper support. Breastare not hot nor warm to the touch. Patient to obtain bilateral breast ultrasound. Patient to followup with routine annual appointment and as needed. Documented by Alicia Christine LPN on behalf of: Luan Valdivia DO documented in this encounterNortheast Regional Medical [id number] NoteSt. John Of God Hospital10-16-2024 NoteBELLCINCINNATI VA [facility]ICAL [facility] Card[facility] Note Chief Complaint: New patient here to establish care. Ref from Gay Enciso CNP for hypertension. Former [facility] cardiology patient. Had echo a few weeks ago at [facility]. Says her BP is very low [...] past several months. She has seen 2-3 radio mechanic helper in the past. She has undergone [...] on any stimulants including caffeinated beverages, alcohol, [id number]-[id number] Sudafed etc. If her symptoms of palpitations persist, particular if she has lightheadedness or dizziness, head upright tilt table test may be reasonable to evaluate for possible dysautonomia's I discussed the side effects and risks of long-term steroid therapy and recommended she discuss with her oil gauger weaning off soon as possible Given her morbid obesity, her current symptoms and comorbidities are likely related to excessive weight: I encouraged physical activity, attempts to lose weigh (more content not included)...[facility] 03-07-2024 NoteSt. [facility] Of God Hospital10-15-2024 History of Present illness Narrative* Lee Friedman - 03/07/2024 8:35 AM EDT CMN RECEIVED BY [employer] VIA FAX, COMPLETED, AND PLACED IN PROVIDER MAILBOX FOR SIGNATURE Lee Friedman Coordinator III 03.07.2024 [facility] COMPANY SENDING CMN: Josh SIGNED AND DATED CMN, FAXED TO DME & CONFIRMATION PAGE RECEIVED: 03.07.2024 documented in this encounterOhio State Health System10-01-2024 Telephone encounter Note * Telephone Encounter - [...] 'too terrified to drive that far to [facility].' Further reviewed the reasoning behind the visit needing to be in-person and stated that I would have our manager bench reach out if she is willingto accept an in-person appt. PT requested that I review with our clinical team if this can be a VV before she schedules. I let her know I will do so and be in touch. She had no further questions at this time. Luda Vargas Genetic Counseling Rolled Materials Worker Additional: see Khoa for documentation of scheduling and cancellation with genetics in 2021 [facility]10-01-2024 Miscellaneous Notes* Telephone Encounter - Luda Vargas [...] 'too terrified to drive that far to [facility].' Further reviewed the reasoning behind the visit needing to be in-person and stated that I would have our manager bench reach out if she is willingto accept an in-person appt. PT requested that I review with our clinical team if this can be a VV before she schedules. I let her know I will do so and be in touch. She had no further questions at this time. Luda Vargas Genetic Counseling Rolled Materials Worker Additional: see FY for documentation of scheduling and cancellation with genetics in 2021 documented in this encounterOhio State Health System09-30-2024 Nurse Note* Kenzie Shannon MA - 02/21/2024 11:13 AM EDT Patient Identification confirmed: yes. Injection given and documented on MAR per provider order. Kenzie Shannon MA [facility]09-30-2024 Nurse Note* Kenzie Shannon MA - 02/21/2024 11:13 AM EDT Patient Identification confirmed: yes. Injection given and documented on JUL per provider order. Kenzie Shannon MA documented in this encounterOhio State Health System09-27-2024 Telephone encounter Note * Telephone Encounter - Sherrie Jimenes - 02/18/2024 1:26 PM EDT Patient is calling the [employer] office requesting Dr. Ni to place a referral to genetics. Please advise. [facility]09-27-2024 Miscellaneous Notes* Telephone Encounter - Sherrie Jimenes - 02/18/2024 1:26 PM EDT Patient is calling the [facility] office requesting Dr. Ni to place a referral to genetics. Please advise. documented in this encounterOhio State Health System09-24-2024 Telephone encounter Note * Telephone Encounter - Hansa Montero LPN - 02/15/2024 9:49 AM EDT PAP ORDER FAXED TO [facility] WITH DEMOGRAPHICS, OFFICE NOTES WITH CONFIRMATON NOTED. [facility]09-24-2024 Miscellaneous Notes* Telephone Encounter - Hansa Montero LPN - 02/15/2024 9:49 AM EDT [facility], OFFICE NOTES WITH CONFIRMATON NOTED. documented in this encounterOhio State Health System09-23-2024 History of Present illness Narrative* Elton (Engineering Project Manager)Luda - 02/14/2024 2:32 PM EDT [facility] [...] been reviewed prior to dispensing the medication. Cardiac Exercise Specialist Assessment Patient confirmed: Yes Med/dose confirmed: Yes Missed doses: No Estimated days supply on hand: 1 Next cycle/dose due: 02/17/24 Copay amount: 0 Payment confirmed: Yes Delivery method: FedEx Signature required: Waived on patient request Delivery address: [address] [place] [address] [place] Delivery date: 02/17/24 Questions or concerns [...] efficacy and/or no longer tolerated. Luda Vale [facility]University [facility] [phone] documented in this encounterOhio State Health System09-23-2024 NoteSt. [facility] Of God Hospital09-23-2024 History of Present illness Narrative* Elton EpsteinYeddaLuda Benz - 02/14/2024 2:26 PM EDT Benefits investigation was conducted, indicating that a re-authorization is required for [employer]. PA was initiated and pending review. Plan Name: Keesha CoverMyMeds Balderrama: [id number] Luda Vale [facility] [phone] documented in this encounterOhio State Health System09-23-[address] [facility]09-23-[address] [facility]09-23-2024 Instructions* Patient Instructions* Lxeus Heck APRN.CNP - 02/14/2024 8:03 AM EDT Images from the original note were not included. Your most recent body mass index (BMI) that we have on record is 43.08 kg/m2. Obstructive sleep apnea (JOSE RAFAEL) worsens with an increase in weight; reduction in weight may improve or resolve your JOSE RAFAEL. Ifyou are not already seeking treatment, there are resources available at the [facility] such as a nutrition consultation or referral to weight management programs at our [facility] [place]. Please let us know if we can [...] and out of pocket expenses. DME: Josh [phone] - Remember to clean your mask and equipment regularly, as directed. - Avoid use of ozone cold meat chef, SoClean devices, or UV cleaning devices - [...] the central scheduling system for the [facility] [place] at [phone]. [facility] now offers direct scheduling for patients to schedule appointments. Virtual visits are also available. Call the office at [phone], option #5 for questions. documented in this encounterOhio State Health System09-23-2024 History of Present illness Narrative* Lexus Heck APRN.CNP - 02/14/2024 8:00 AM EDT Images from the original note were not included. [facility] Virtual Visit Follow up/ Established patient visit Date of last visit : 07/27/2022 I have communicated my name and active licensure. The patient's identity and physical location wereverified at the time of this visit. Either the patient or their legal business office representative has been informed of the risks [...] Return Visit in 6 months. Lexus Heck APRN.SPEECH THERAPY DIRECTOR Interval history : Here for follow up for sleep apnea management. SLEEP APNEA Sleep apnea type : JOSE RAFAEL Most Recent Apnea-Hypopnea Index (AHI): 5.3 (HSAT scored 4 %) Treatment : PAP therapy DME: Josh Reese DME fax: [phone] DME ph: [phone] PAP History: Current PAP settin-15 cm H2O. [...] are sorted in reverse-chronological order 04/12/2022 07/23/2022 Napoleon Sleepiness Scale Score 4 (No clinically significant [...] - Follow up 12 months. Lexus Heck APRN.SPEECH THERAPY DIRECTOR documented in this encounterOhio State Health System09-23-2024 NoteSt[facility] History of Present illness Narrative* Zita Cuellar NP - 02/09/2024 8:00 AM EDT Images from the original note were not included. CHIEF COMPLAINT REASON FOR VISIT : leg pain HPI: Ariadna Haley is a 43 y.o. female who presents for [facility]. She is at home. She [...] Chronic laryngopharyngitis COVID-19 vaccine administered x 2 ([employer]) Difficulty walking Fatigue Fibromyalgia, primary GERD (gastroesophageal [...] Depression: Not at risk (12/27/2023) Received from [facility] PHQ-2 PHQ-2 score: 1 REVIEW OF SYMPTOMS: [...] patient, and coordinating care. documented in this encounterNortheast Regional Medical [id number] NoteHNO ID: [id number] Author: ALHAJI HEAD, DO Service: ? Author Type: Physician Type: Progress Notes Filed: 01/27/2024 16:54 Note Text: VIRTUAL VISIT PROGRESS NOTE This is a virtual visit using [employer] Zoom Video Visit. It required patient-provider interaction for the medical decision making as documented below. I have communicated my name and active licensure. The patient's identity and physical location were verified at the time of this visit. Either the patient or their legal business office representative has been informed of the risks [...] of green drainage. She saw her OB/ baggage screener. This was thought to be secondary to [...] SOB/WHEEZING, and NO DYSPHAG (more content not included)...[facility]09-05-2024 History of Present illness Narrative* Alhaji Head DO - 01/27/2024 10:10 AM EDT Images from the original note were not included. VIRTUAL VISIT PROGRESS NOTE This is a virtual visit using [employer] Zoom Video Visit. It required patient- provider interaction for the medical decision making as documented below. I have communicated my name and active licensure. The patient's identity and physical location wereverified at the time of this visit. Either the patient or their legal business office representative has been informed of the risks [...] of green drainage. She saw her OB/ baggage screener. This was thought to be secondary to [...] thrush Alhaji Head DO documented in this encounterOhio State Health System09-03-2024 Nurse Note* Margret Cuenca MA - 01/25/2024 11:30 AM EDT Patient Identification confirmed: yes. Injection given and documented on JUL per provider order. Margret Cuenca MA [facility]09-03-2024 Nurse Note* Margret Cuenca MA - 01/25/2024 11:30 AM EDT Patient Identification confirmed: yes. Injection given and documented on JUL per provider order. Margret Cuenca MA documented in this encounterOhio State Health System08-27-2024 History of Present illness Narrative* Arianne Mckinley [...] outcomes. Aidee Quintanilla PharmD Clinical Pharmacist, [employer] [facility] ; Pool: P [facility] Pool #: [id number] Cardiac Exercise Specialist Assessment Patient confirmed: Yes Med/dose confirmed: Yes Supplies needed: No supplies needed Missed doses: No Estimated days supply on hand: (At least 1 dose) Next cycle/dose due: 01/20/24 Copay amount: 0 Payment confirmed: Yes Delivery method: FedEx Signature required: Waived on patient request Delivery address: [address] [place] [address] Delivery date: 01/21/24 Questions or concerns for [...] no longer tolerated. Arianne Mckinley CPhT, Inflammatory/Allergy [facility] [phone] documented in this encounterOhio State Health System08-21-2024 Telephone encounter Note * Telephone Encounter - Krista Braswell MA - 01/12/2024 10:45 AM EDT Pt has been notified via Simple Starhart. [facility]08-21-2024 Miscellaneous Notes* Telephone Encounter - Krista Fonseca MA - 01/12/2024 10:45 AM EDT Pt has been notified via Snapsort. 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 Please process accordingly. 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 [facility]08-08-[facility] Miscellaneous Notes* Telephone Encounter - Krista Fonseca [...] vitamin b12 every month documented in this encounterOhio State Health System08-08-2024 Telephone encounter Note * Telephone Encounter - [...] likely reactive, continue vitamin b12 every month [facility]08-05-20[facility] Telephone encounter Note* Telephone Encounter - Enma Hamm RN - 12/27/2023 12:49 PM EDT Pt informed of MM message and denies any questions, needs or concerns at this time. Appointments verified. Enma Hamm RN [facility]08-05-2024 Miscellaneous Notes* Telephone Encounter - Enma Hamm RN - 12/27/2023 12:49 PM EDT Pt informed of MM message and denies any questions, needs or concerns at this time. Appointments verified. Enma Hamm RN * Telephone Encounter - Neda Hill PA-C - 12/27/2023 12:44 PM EDT Please call and inform the patient that I reviewed her [facility] records and there is no evidence of a blood clot and she does not need to be on blood thinners. Neda Hill PA-C documented in this encounterOhio State Health System08-05-2024 Telephone encounter Note * Telephone Encounter - Neda Hill PA-C - 12/27/2023 12:44 PM EDT Please call and inform the patient that I reviewed her [facility] records and there is no evidence of a blood clot and she does not need to be on blood thinners. Neda Hill PA-C [facility] Work Phone: [phone] Nurse Note* Margret Cuenca MA - 12/27/2023 11:44 AM EDT Patient Identification confirmed: yes. Injection given and documented on MAR per provider order. Margret Cuenca MA [facility]08-05-2024 Nurse Note* Margret Cuenca MA - 12/27/2023 11:44 AM EDT Patient Identification confirmed: yes. Injection given and documented on MAR per provider order. Margret Cuenca MA documented in this encounterOhio State Health System08-05-2024 History of Present illness Narrative* Neda Hill PA-C - 12/27/2023 11:30 AM EDT Images from the original note were not included. NAME: lazarofrancisco javierAriadna [facility] NO.: [id number] DATE OF SERVICE: December 27, 2023 (Liz) [...] labs 1 week before. Request records from [facility] from PE/elevated d-dimer Frequent infections and [...] lower lip done 2 days ago at [facility] - awaiting results. B12 helps [...] injections. Shefollows with multiple doctors including and page technician, oil gauger, farmworker bulbs and PCP. She has been told they [...] which included preparing to see the patient, qycg-sw-tyfc patient care, completing clinical documentation, obtaining and/or reviewing separately obtained history, performing a medically appropriate examination, counseling and educating the pat ient/family/caregiver, ordering medications, tests, or procedures, communicating with other HCPs (not separately reported), independently interpreting results (not separately reported), communicatingresults to the patient/family/caregiver, and care coordination (not separately reported). Neda Hill PA-C Hematology and Oncology Services Provided at: [place], [place] CC: Manuel Ferris MD [address] [facility] [address] documented in this encounterOhio State Health System07-22-2024 History of Present illness Narrative* Elton (Engineering Project Manager)Luda - 12/13/2023 11:44 AM EDT [facility] [...] laboratory parameters, disease state markers and outcomes. Cardiac Exercise Specialist Assessment Patient confirmed: Yes Med/dose confirmed: Yes Missed doses: No Estimated days supply on hand: 1 Next cycle/dose due: 12/16/23 Copay amount: 0 Payment confirmed: Yes Delivery method: FedEx Signature required: Waived on patient request Delivery address: [address] [place] [address] Delivery date: 12/17/23 Questions or concerns for [...] SPECIALTY PHARMACY TREATMENT PLAN INFORMATION [facility]uda Vale [facility] [phone] documented in this encounterOhio State Health System07-08-2024 Nurse Note* Stacy Gutiérrez MA - 11/29/2023 1:47 PM EDT Patient Identification confirmed: yes. Injection given and documented on JUL per provider order. Stacy Gutiérrez MA [facility]07-08-2024 Nurse Note* Stacy Gutiérrez MA - 11/29/2023 1:47 PM EDT Patient Identification confirmed: yes. Injection given and documented on JUL per provider order. Stacy Gutiérrez MA documented in this encounterOhio State Health System07-05-2024 Telephone encounter Note * Telephone Encounter - Katherin Schneider RN - 11/26/2023 11:34 AM EDT Please sign pended script Maryam Schneider RN [facility]07-05-2024 Miscellaneous Notes* Telephone Encounter - Katherin Schneider RN - 11/26/2023 11:34 AM EDT Please sign pended script Maryam Schneider RN documented in this encounterOhio State Health System06-24-2024 History of Present illness Narrative* Aidee Quintanilla [facility] - 11/15/2023 1:00 PM [...] laboratory parameters, disease state markers and outcomes. Cardiac Exercise Specialist Assessment Patient confirmed: Yes Med/dose confirmed: Yes Missed doses: No Estimated days supply on hand: 1 Next cycle/dose due: 11/18/23 Copay amount: 0 Payment confirmed: Yes Delivery method: FedEx Signature required: Waived on patient request Delivery address: [address] [place] [address] Delivery date: 11/17/23 Questions or concerns for [...] facility-administered medications on file prior to visit. [facility] Visit Assessment - Inflammatory Conditions: [...] efficacy: Yes Roland CamarilloD Clinical Pharmacist, [employer] [facility] ; Pool: P [facility] Pool #: [id number] documented in this encounterOhio State Health System06-20-2024 Telephone encounter Note * Telephone Encounter - [...] above. Please process accordingly. Lynne Ni MD [facility]06-20-2024 Miscellaneous Notes* Telephone Encounter - Lynne Ni [...] High total serum IgM documented in this encounterOhio State Health System06-20-2024 Telephone encounter Note * Telephone Encounter - [...] vitamin B12 deficiency, High total serum IgM [facility]06-06-20[facility] Telephone encounter Note* Telephone Encounter - Karina Morales RN - 10/28/2023 1:33 PM EDT Pt read Snapsort message. [facility] Miscellaneous Notes* Telephone Encounter - Karina Morales RN - 10/28/2023 1:33 PM EDT Pt read Snapsort message. * Telephone Encounter - Lynne Ni [...] soon! Warm regardsDr.Tsai :) documented in this encounterOhio State Health System06-06-2024 Telephone encounter Note * Telephone Encounter - [...] feel better soon! Warm Dr.Tsai oziel :) [facility]06-05-[facility] Nurse Note* Margret Cuenca MA - 10/27/2023 2:43 PM EDT Patient Identification confirmed: yes. Injection given and documented on JUL per provider order. Margret Cuenca MA [facility]06-05-2024 Nurse Note* Margret Cuenca MA - 10/27/2023 2:43 PM EDT Patient Identification confirmed: yes. Injection given and documented on JUL per provider order. Margret Cuenca MA documented in this encounterOhio State Health System05-14-2024 History of Present illness Narrative* Lynne Ni [...] visit. 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, see primary care provider for recurrent flank pain/UTIs, improved with plaquenil 2tabs daily, start photoprotection, see ophthalmology, steroids/prednisone 10mg daily/ [facility]/try weaning off, see derm/?eval recurrent boils, see spine/pain clinic/improved with lyrica/may increase if needed, see derm, start prn heat/ice/otc arthritis creams, low impact weightbearing exercise as tolerated, see neurology/on metoprolol for POTs, avoid aggravating triggers, halfway pain recommendations per primary care provider/pain clinic/patient [...] metoprolol for POTs, avoid aggravating triggers, long term care social worker pain recommendations per primary care provider/pain clinic/patient [...] nausea, vomiting, night sweats,scalp tenderness, visual changes, heranndez, bowel/bladder changes, or other complaints. Last visit [...] Due for eye exam. [facility]/completed in 06/2021 (no results faxed to office, but patient pulled up results on her phone). Chronic current pain in neck, flank area, mid back, knees, legs, arms, all over pain. Better with lyrica 75mg 3times a day. Reports pain 4-8/10. Couple hrs AM stiffness. COVID vaccine [employer] 09/28/20, 10/19/20, 05/26/21. Feels safe at [...] COVID-19 original vaccine, age 12+ yr, monovalent ([employer] - PURPLE TOP) 09/28/2020 10/19/2020 05/26/2021 COVID-19 vaccine, age 12+ yr, 2022- season ([employer]App[employer]Me) 02/23/2023 COVID-19 vaccine, age 12+ yr, bivalent ([employer]App[employer]Me) 02/08/2022 Pneumovax no Flu shot no Tetanus [...] (33);NL cbc, cmp, negative hla b27; Outside [place] 06/2021 low vitamin D 16, vitamin b12-307;high [...] may consider osteoporosis treatment if on long term care social worker steroids/abnormal bmd, take vitamin D script once [...] neurology/on metoprolol for POTs, avoid aggravating triggers, halfway pain recommendations per primary care provider/pain clinic/patient [...] (200mg) daily with a meal Please see integrated program teacher every 6-12months while on Hydroxychloroquine. Start azathioprine [...] your toes, sit-ups, using row machine long term care social worker pain recommendations per primary care provider/pain clinic [...] video & audio (virtual) or phone or bhff-vl-xwgn patient care, completing clinical documentation, obtaining and/or [...] Workers' Compensation? No Do you need an historical interpreter? No [facility] MYCHART ZOOM MESSAGE Question 2023 11:04 PM [...] 3 (WITHIN +/- 5) documented in this encounterOhio State Health System05-09-2024 Nurse Note* Renea Schneider MA - 09/30/2023 10:53 AM EDT Patient Identification confirmed: yes. Injection given and documented on JUL per provider order. Renea Schneider MA [facility]05-01-2024 Evaluation note* Author Ketty Mccall [facility] Authored September 22, 2023 2:55pm 42-year-old [...] omeprazole to pantoprazole and monitor symptoms [facility] Work Phone: 1(962) 238-968604-18-2024 Instructions* Patient Instructions* Vera Najera MD - 09/09/2023 4:47 PM EDT Follow up in 13 Weeks - labs 1 week before. B12 shot every 4 weeks. Continue Folic acid. documented in this encounterOhio State Health System04-18-2024 History of Present illness Narrative* Vera Najera MD - 09/09/2023 4:30 PM EDT NAME: Ariadna Haley [facility] NO.: [id number] DATE OF SERVICE: September 09, 2023 ([place]) Some elements in this clinic note that are critical to medical decision making have been carefully reviewed and included from a prior clinic note dated: June 10, 2023 ([place]) Referring Provider: Dr. Manuel Ferris Additional Clinicians involved in Ariadna Haley's care: VIRTUAL VISIT PROGRESS NOTE This is a virtual visit using [employer] Video Call. It required patient- provider interaction for the medical decision making as documented below. I have communicated my name and active licensure. The patient's identity and physical location wereverified at the time of this visit. Either the patient or their legal business office representative has been informed of the risks [...] lower lip done 2 days ago at [facility] - awaiting results. B12 helps [...] injections. Shefollows with multiple doctors including and page technician, oil gauger, farmworker bulbs and PCP. She has been told they [...] CPE Hematology and Oncology Services Provided at: [place], [place] CC: Manuel Ferris MD [address] [facility] [address] documented in this encounterOhio State Health System04-15-2024 Miscellaneous Notes* Telephone Encounter - Maynor Bryson MA - 09/06/2023 7:21 AM EDT patient has viewed the Snapsort message per turntable.fm. * Telephone Encounter - Lynne Ni MD - 09/04/2023 6:30 PM EDT Please Call patient if Concil[employer] Networkshart note not read to review results/released to [...] accordingly. Lynne Ni MD documented in this [facility]04-09-2024 Nurse Note* Margret Cuenca MA - 08/31/2023 10:35 AM EDT Patient Identification confirmed: yes. Injection given and documented on JUL per provider order. Margret Cuenca MA documented in this [facility]04-01-2024 Nurse Note* Renea Schneider MA - 09/30/2023 10:53 AM EDT Patient Identification confirmed: yes. Injection given and documented on JUL per provider order. Renea Schneider MA documented in this [facility]03-14-2024 Nurse Note* Margret Cuenca - 08/05/2023 11:16 AM EDT Patient Identification confirmed: yes. Injection given and documented on JUL per provider order. Margret Cuenca documented in this [facility]02-20-2024 Nurse Note* Margret Cuenca - 07/13/2023 12:01 PM EST Patient Identification confirmed: yes. Injection given and documented on JUL per provider order. Margret Cuenca documented in this [facility]02-20-2024 History of Present illness Narrative* Lois [...] and is being cared for at the [facility] utilizing steroids, Plaquenil and injectable medic ation(Benlystal). The patient record indicating having had cardiac catheterization in [place] 3 years ago which was normal. I have the report available for my review. [facility] [...] lupus being treated by rheumatology at the [facility] on steroids, Plaquenil and monoclonal [...] , Rfl: ergocalciferol (Vitamin D-2) 1.25 MG (93468 UT) capsule, Take 1 capsule (50,000 Units) [...] exam, discussion and plan. documented in this [facility]Select [facility] Work Phone: 1(849) 801-707302-20-2024 Instructions* Patient Instructions* Lila Tejeda LPN - [...] time of your visit. documented in this encounterSelect [facility] Work Phone: 1(354) 510-153302-13-2024 History of Present illness Narrative* Kade Richardson [...] , Rfl: ergocalciferol (Vitamin D2) 1.25 MG (09719 UT) capsule, Take 50,000 Units by mouth [...] Chronic laryngopharyngitis COVID-19 vaccine administered x 2 ([employer]) History of removal of cyst 2013 [...] reflexes: Stu's absent. Ankle clonus absent. Coordination Pvahqe-lr-fcam, rapid alternating movements and kcmo-ax-odib normal bilaterally without dysmetria. Gait Normal casual, toe, heel and tandem gait. Romberg is absent. Assessment/Plan Diagnoses and all orders for this visit: Autoimmune disease ([facility]) - Protein electrophoresis, serum; Future - [...] Lyrica 100 mg TID. She is on qzxmamowsj89 mg once daily. Increase prednisone 10 mg BID for 10 days. documented in this encounterNortheast Regional Medical [id number] History of Present illness Narrative* Michelle Jasmine, WAREHOUSE DISTRIBUTION SPECIALIST-SPEECH THERAPY DIRECTOR - 06/09/2023 8:30 AM EST Ariadna Haley is a 42 y.o. female that presents to the office today for new patient evaluation asself referral for palpitations and elevated heart rates. She has a PMH of HTN, HLD, tachycardia, anemia, JOSE RAFAEL with CPAP compliance, lupus, autonomic dysfunction, arthritis, chronic back pain. She has undergone cardiac workup in the past in [place] as noted below. She also states that she follows withNeurology for possible POTS syndrome. Admits to daily tobacco use, 1 pack of cigarettes per day. Denies vaping, ETOH, recreational drugs. Admits to drinking approximately 1 pot of coffee per day. Denies daily exercise. 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 Family history negative [...] Anemia, unspecified Anxiety Autonomic dysfunction Depression, recurrent ([facility]) Discoid lupus erythematosus Chronic bilateral low [...] , Rfl: ergocalciferol (Vitamin D-2) 1.25 MG (79391 UT) capsule, Take 1 capsule (50,000 Units) [...] Autonomic dysfunction Depression, recurrent ([facility]) Discoid lupus erythematosus Chronic bilateral low back pain with bilateral sciatica Hyperlipidemia Obesity, Class III, BMI 40-49.9 (morbid obesity) ([facility]) Obstructive sleep apnea syndrome Arthritis Tachycardia [...] to prepare this document. documented in this [facility] Work Phone: 1(671) 541-771401-03-2024 Instructions* Patient Instructions* Christie Phan MD - 05/26/2023 5:43 PM EST Images from the original note were not included. https://[employer] Information/tofu-bolognese/ https://nutritionstudies.org/mes-qr-ichcboekv-oepjhjmv-nt-yxxxi-d-vgrni-ftut-randee qy-qzzxx-qninrjykb/ https://www.RoboteX/blog/plantbasedkids https://Clodico/jnooj-cfjpi-fqxt-for-kids/ https://Clickpass/kgd-vj-yzhyapkfso-dsdw-fcbg-tn-i-jhgup-wsnxs-diet/ WHAT TO EAT? Breakfast: Overnight Oats Base ingredients: 1/3 cup rolled oats, 1/3 cup plain almond milk, 1tsp kyle seeds. Optional add-ins: cinnamon, flax seeds, honey or maple syrup, nut butter, chopped nuts. Toppings: Any fresh fruit chopped. Mix together and place in refrigerator. Can make 5 at a time for the whole week. Homemade fresh oatmeal. Can also make in the crockpot. Guinean muffin/almond butter topped with fresh berries Guinean muffin, cooked egg/egg white, tomato, thin slice croatian cheese Fresh berries, hard boiled egg, whole wheat toast Plain yogurt topped with berries, unsalted nuts, drizzle of honey Whole grain toast/Guinean muffin topped with mashed avocado and tomatoes Lunch: Dinner leftovers packed in Tupperware, side of fruit Salad mixture topped with a protein (chick breast/tuna/hard boiled egg/beans), dressing and side offruit Dinner - Refer to plate digital media planner pictures to help select foods and portion ratios of protein, vegetables/starches. Keep it simple and rotate your favorite meals. Sheet nix meals Soups Grilled protein/vegetables/side of starch (plate digital media planner picture) Stir can with protein, mixed vegetables, and riced cauliflower or portion controlled whole grain rice. Make your own bowls - Hebrew/Ukrainian/ theme Rhodell with Zoodles (spiralized vegetable noodles). Roasted vegetable wraps Alter traditional recipes to reflect HIGH QUALITY ingredients in the right QUANTITIES. Snacks - portion controlled: Raw veggies (can have with hummus, mashed avocado, salsa). Unsalted nuts Fruit (1 serving). (optional side of peanut butter) Air pop popcorn [place] and low fat croatian cheese rolled up String cheese Protein balls (mix rolled oats, nut butter, flax seeds, dash almond milk). Beverages: Water Coffee, Hot tea Unsweetened ice tea EATING OUT: Research menu online, include nutritional information. Make your order decision before getting to restaurant. Stick to recommended portions (plate digital media planner picture). Ask for substitutions or [...] baked potato, sprouted grain bread, chick peas https://www.myCampusTutors.com/article/1543720/vsblymcbartmv-jnlp-whom-for-beginners / https://www.eatingwell.com/category/4274/zblwnlfxvazpr-wxur-vzfers/ https://www.eatingwell.com/category/4300/gncumsqmeroqy-krwi-jrgg-plans/ My current favorite cookbooks are documented in this encounterOhio State Health System01-03-2024 History of Present illness Narrative* Christie Phan MD - 05/26/2023 5:00 PM EST Images from the original note were not included. [facility] Follow-Up Appointment [...] to nutrition to work towards a [facility] diet Plan Diagnoses and all [...] WELLNESS; Future F/U: 3 months SUBJECTIVE: Ariadna Haely is a 42 year old female [...] the date of the service which included afyr-tq-jvbu patient care, completing clinical documentation, performing a medically appropriate examination, counseling and educating the patient/family/caregiver, and ordering medications, tests, or procedures. Christie Phan MD, CT, [facility] Lifestyle Medicine Specialist documented in this encounterOhio State Health System12-04-2023 Miscellaneous Notes* Telephone Encounter - Renate Lawrence MA - 04/26/2023 5:26 PM EST Medication pending with new pharmacy information. documented in this encounterOhio State Health System12-04-2023 History of Present illness Narrative* Christie Phan MD - 04/26/2023 4:15 PM EST Images from the original note were not included. [facility] Virtual Follow-Up [...] the date of the service which included mwbe-ic-zpbj patient care, completing clinical documentation, performing a medically appropriate examination, counseling and educating the patient/family/caregiver, and ordering medications, tests, or procedures. I have communicated my name and active licensure. The patient's identity and physical location wereverified at the time of this visit. Either the patient or their legal business office representative has been informed of the risks and benefits of -- and alternatives to -- treatment through a remote evaluation andconsents to proceed with the evaluation remotely. Christie Phan MD, MA, [facility] Lifestyle Medicine Specialist documented in this encounterOhio State Health System12-04-2023 Nurse Note* Renate Lawrence MA - 04/26/2023 2:46 PM EST Spoke to Ariadna Haley, confirmed patient is registered on [employer] and is prepared for their appointment. Confirmed the patient has updated medications, allergies, and questionnaires via [employer]. Informed patient if there is an issue with the connection, provider will send the patient a secure link. If provider is running late, patient should remain connected to the visit. Patient verbalized understanding. documented in this encounterOhio State Health System11-30-2023 Miscellaneous Notes* Telephone Encounter - Enma Hamm, RN - 04/22/2023 3:48 PM EST Pt called for Iron results; possible need for transfusion. Pt aware no need for iron infusion at this time. Enma Hamm, RN documented in this encounterOhio State Health System11-24-2023 History of Present illness Narrative* Kenzie Shannon - 04/16/2023 10:55 AM EST Patient Identification confirmed: yes. Injection given and documented on JUL per provider order. Kenzie Shannon documented in this encounterOhio State Health System10-27-2023 History of Present illness Narrative* Kenzie Shannon - 03/19/2023 11:06 AM EDT Patient Identification confirmed: yes. Injection given and documented on JUL per provider order. Kenzie Shannon documented in this encounterOhio State Health System10-24-2023 History of Present illness Narrative* Marija Ziegler - 03/16/2023 10:13 AM EDT CMN RECEIVED BY [employer] VIA FAX, COMPLETED, AND PLACED IN PROVIDER MAILBOX FOR SIGNATURE On 2022 By Marija Ziegler [employer]. [employer] SENDING CMN: JOSH SIGNED AND DATED CMN, FAXED TO DME & CONFIRMATION PAGE RECEIVED: 03.24.23 documented in this [facility]10-19-2023 History of Present illness Narrative* Beatriz [...] LPN In Department: RHEUMATOLOGY documented in this encounterOhio State Health System10-18-2023 Miscellaneous Notes* Telephone Encounter - Christie Phan MD - 03/10/2023 2:18 PM EDT Spoke with patient. We stopped her trulicity because of side effects. She only took the cymbalta for a week. She will restart and we will see how she is doing in 2 months. Have also ordered insulin labs to check for insulin resistance. documented in this encounterOhio State Health System10-09-2023 Miscellaneous Notes* Telephone Encounter - Lynne Ni MD - 03/01/2023 3:27 PM EDT For chart: Eye exam 02/26/23 no ocular complication related to medication. * Telephone Encounter - Beatriz Sanchez LPN - 03/01/2023 2:38 PM EDT [facility] exam from [facility] Placed on your desk for review. documented in this encounterOhio State Health System09-29-2023 Nurse Note* Radha Kebede MA - 02/19/2023 11:48 AM EDT Patient Identification confirmed: yes. Injection given and documented on JUL per provider order. Radha Schofield MA documented in this encounterOhio State Health System09-29-2023 Instructions* Patient Instructions* Vera Najera MD - 02/19/2023 11:40 AM EDT B12 shot today and every 4 weeks. Continue Folic acid. Follow up in 8 Weeks - labs 1 week before. documented in this encounterOhio State Health System09-29-2023 History of Present illness Narrative* Vera Najera MD - 02/19/2023 11:32 AM EDT Images from the original note were not included. AMBULATORY TELEPHONE VISIT Ariadna B Jose Carlosfrancisco javier has consented to this telephone encounter. Persons Present: Patient and myself Chief Complaint/Reason: Anemia; To review recent blood work. HPI: Total Time Spent: 21 minutes Rebekah Rojas APRN.SPEECH THERAPY DIRECTOR NAME: Ariadna Haley CLINIC NO.: [id number] DATE OF SERVICE: February 19, 2023 (Marquis) [...] lower lip done 2 days ago at [facility] - awaiting results. B12 helps [...] injections. Shefollows with multiple doctors including and page technician, oil gauger, farmworker bulbs and PCP. She has been told they [...] which included preparing to see the patient, rbif-dd-kjvw patient care, completing clinical documentation, performing a medically appropriate examination, counseling and educating the patient/family/caregiver, ordering medications, tests, or p rocedures, and independently interpreting results (not separately reported). Vera Najera MD, CPE Hematology and Oncology Services Provided at: [place], [place] CC: Manuel Ferris MD [address] [address] documented in this encounterOhio State Health System09-26-2023 Miscellaneous Notes* Telephone Encounter - Lynne Ni [...] RAYRAY INJECTION TEACHING 03/11/2023 7:30 AM DAVIDU COUNT INCLUDES THE [facility] NICKIE VIDEO SPEC EST 08/12/2023 9:00 AM [facility] NICKIE Last Ophthalmology Check for Plaquenil [...] diagnoses: Vitamin D deficiency documented in this encounterOhio State Health System09-18-2023 Miscellaneous Notes* Telephone Encounter - Mirela Carlos - 02/08/2023 11:12 AM EDT Spoke with patient Will get labs done when she does labs in Dec for Dre/Onc Mailed orders for DXA to pt so she can go to [facility] Pre cert Benlyst Scheduled Teaching [...] accordingly. Lynne Ni MD documented in this encounterOhio State Health System09-14-2023 History of Present illness Narrative* Carlene Rendon - 02/04/2023 9:31 AM EDT [facility] received prescription(s) for Benlysta from Dr. Ni. Benefits investigation was conducted, indicating that a prior authorization is required by patients plan with [facility]. Encounter will be updated once prior authorization has been submitted by [facility]. Carlene Rendon CPhT [facility], Inflammatory P: [phone] F: [phone] documented in this encounterOhio State Health System09-14-2023 History of Present illness Narrative* [...] visit. Either the patient or their legal business office representative has been informed of the risks [...] neurology/on metoprolol for POTs, avoid aggravating triggers, halfway pain recommendations per primary care provider/pain clinic/patient [...] Due for eye exam. [facility] to [facility]/completed in 06/2021 (no results faxed to office, [...] pain: yes H/o precedent/frequent infection(s): as above Enthesopathy/Eldorado's/heel/plantar tenderness: hands random painful/tingling Skin thickening, psoriasis, [...] COVID-19 original vaccine, age 12+ yr, monovalent ([employer] - PURPLE TOP) 09/28/2020 10/19/2020 05/26/2021 COVID-19 vaccine, age 12+ yr, bivalent ([employer]App[employer]Me) 02/08/2022 Pneumovax no Flu shot no Tetanus [...] (33);NL cbc, cmp, negative hla b27; Outside [place] 06/2021 low vitamin D 16, vitamin b12-307;high [...] rate M25.531, M25.532 Bilateral wrist pain Z79.52 alf 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 M81.8, T38.0X5A [...] measures, may consider osteoporosis treatment if on halfway steroids/abnormal bmd, take vitamin D script if [...] metoprolol for POTs, avoid aggravating triggers, long term care social worker pain recommendations per primary care provider/pain clinic/patient [...] (200mg) daily with a meal Please see integrated program teacher every 6-12months while on Hydroxychloroquine. Start azathioprine [...] touching your toes, sit-ups, using row machine halfway pain recommendations per primary care provider/pain clinic [...] video & audio (virtual) or phone or tybn-ww-onxu patient care, completing clinical documentation, obtaining and/or [...] cc Gay Enciso CNP;Dr.Douglas Sai Ferris MD [facility] AMBULATORY VISIT INTAKE QUESTIONNAIRE Question 02/02/2023 10:32 [...] Workers' Compensation? No Do you need an historical interpreter? No [facility] MYCHART ZOOM [...] < or = 5) documented in this encounterOhio State Health System09-14-2023 Instructions* Patient Instructions* Lynne Ni [...] (200mg) daily with a meal Please see integrated program teacher every 6-12months while on Hydroxychloroquine. azathioprine daily [...] your toes, sit-ups, using row machine long term care social worker pain recommendations per primary care provider/pain clinic [...] your usual activities immediately. documented in this encounterOhio State Health System09-05-2023 Miscellaneous Notes* Telephone Encounter - Maynor Bryson MA - 01/26/2023 7:46 AM EDT patient has viewed the Snaps[employer] message per [email or web address][employer]fm. * Telephone Encounter - Lynne Ni MD - 01/24/2023 8:04 PM EDT Please Call patient if [employer] note not read to review results/released to My Chart if tests completed at [facility]: mildly high normal wbc- will monitor. [...] accordingly. Lynne Ni MD documented in this encounterOhio State Health System09-01-2023 Nurse Note* Radha Kebede MA - 01/22/2023 12:17 PM EDT Patient Identification confirmed: yes. Injection given and documented on JUL per provider order. Radha Schofield MA documented in this encounterOhio State Health System08-22-2023 Miscellaneous Notes* Telephone Encounter - Christie Phan [...] the above prescription(s) to electronically send to [facility] pharmacy. Milagro Mendiola MA documented in this encounterOhio State Health System08-11-2023 History of Present illness Narrative* Misty Nelson MD - 01/01/2023 10:51 AM EDT VIRTUAL VISIT PROGRESS NOTE This is a virtual visit using [employer] video visit. It required patient-provider interaction for themedical decision making as documented below. I have communicated my name and active licensure. The patient's identity and physical location wereverified at the time of this visit. Either the patient or their legal business office representative has been informed of the risks [...] or sinusitis No pneumonia She sees oil gauger and was diagnosed with lupus She is on Plaquenil, azathioprine Prednisone 10mg once daily for the past year; every few months she gets treated with higher doses of prednisone for flares of her symptoms The medications seem to help the body aches She saw the collision estimator Treated with B12 and folic acid We [...] visit. Misty Nelson MD documented in this encounterOhio State Health System07-28-2023 Miscellaneous Notes* Telephone Encounter - Rebekah Rojas APRN.CNP - 12/18/2022 10:48 AM EDT Spoke with patient this morning, 12/18/2022. Rebekah Rojas APRN.CNP * Telephone Encounter - Lidia Argueta RN - 12/18/2022 9:31 AM EDT Pt called field control inspector service last evening stating she was suppose to have a phone call with Rebekah at 330 and never received a call. Pt is still waiting (536 pm 12/17/22). Please advise Lidia Argueta RN documented in this encounterOhio State Health System07-28-2023 History of Present illness Narrative* Rebekah Rojas [...] Total Time Spent: 21 minutes Rebekah Rojas APRN.SPEECH THERAPY DIRECTOR NAME: Ariadna Haley CLINIC NO.: [id number] DATE OF SERVICE: October 22, 2022 (Marquis) [...] lower lip done 2 days ago at [facility] - awaiting results. B12 helps [...] injections. Shefollows with multiple doctors including and page technician, oil gauger, farmworker bulbs and PCP. She has been told they [...] ECOG PERFORMANCE STATUS: 0 PHYSICAL EXAMINATION: Vitals: [facility] 02/26/2022 There is no height [...] which included preparing to see the patient, fvue-yq-anor patient care, completing clinical documentation, performing a medically appropriate examination, counseling and educating the patient/family/caregiver, ordering medications, tests, or p rocedures, and independently interpreting results (not separately reported). Vera Najera MD, CPE Hematology and Oncology Services Provided at: [place], [place] CC: Manuel Ferris MD [address] [address] documented in this encounterOhio State Health System07-26-2023 Miscellaneous Notes* Telephone Encounter - Pamella Bettencourt RN - 12/16/2022 1:14 PM EDT Pt notified and verbalizes understanding. Clerical: Please change tomorrow's appointment to a phone visit at the end of Rebekah's day. Preferred number is [phone]. In addition, pt will be in next 12/25/22 @ 1130 for her B12 shot. Please add her to the MA schedule. Thanks! Pamella Bettencourt RN * Telephone Encounter - Rebekah Rojas APRN.CNP - 12/16/2022 12:56 PM EDT That would be okay. Have her added at the end of the day. Thanks, Rebekah Rojas APRN.SPEECH THERAPY DIRECTOR * Telephone Encounter - Pamella Bettencourt RN - 12/16/2022 11:01 AM EDT Pt is scheduled for RV w/ Rbeekah & B12 tomorrow. She would like to make this a telephone appointment instead and come back next week for B12. Pt had her labs drawn last week. Rebekah: Any objections to meeting w/ pt over the phone tomorrow or would you prefer we switch her toVik's schedule? Pamella Bettencourt RN documented in this encounterOhio State Health System07-23-2023 Miscellaneous Notes* Telephone Encounter - Vera Najera [...] advise Enma Hamm, RN documented in this encounterOhio State Health System07-04-2023 Miscellaneous Notes* Telephone Encounter - Lynne Ni [...] accordingly. Lynne Ni MD documented in this encounterOhio State Health System06-29-2023 Nurse Note* Margret Cuenca - 11/19/2022 11:01 AM EDT Patient Identification confirmed: yes. Injection given and documented on JUL per provider order. Margret Cuenca documented in this encounterOhio State Health System06-01-2023 Nurse Note* Stacy Gutiérrez Ma - 10/22/2022 11:50 AM EDT Patient Identification confirmed: yes. Injection given and documented on JUL per provider order. Stacy Gutiérrez Ma documented in this [facility]06-01-2023 Instructions* Patient Instructions* Vera Najera MD - 10/22/2022 11:43 AM EDT B12 Shot today and every 4 weeks. Continue Folic acid. Follow up in 8 Weeks - labs 1 week before. documented in this encounterOhio State Health System06-01-2023 History of Present illness Narrative* Vera Najera MD - 10/22/2022 11:35 AM EDT Images from the original note were not included. NAME: Ariadna Haley CLINIC NO.: [id number] DATE OF SERVICE: October 22, 2022 (Marquis) [...] lower lip done 2 days ago at [facility] - awaiting results. B12 helps [...] injections. Shefollows with multiple doctors including and page technician, oil gauger, farmworker bulbs and PCP. She has been told they [...] which included preparing to see the patient, wvxo-ii-yuqt patient care, completing clinical documentation, performing a medically appropriate examination, counseling and educating the patient/family/caregiver, ordering medications, tests, or p rocedures, and independently interpreting results (not separately reported). Vera Najera MD, CPE Hematology and Oncology Services Provided at: [place], [place] CC: Manuel Ferris MD [address] [address] documented in this encounterOhio State Health System05-04-2023 Nurse Note* Stacy Gutiérrez Ma - 09/24/2022 10:22 AM EDT Patient Identification confirmed: yes. Injection given and documented on JUL per provider order. Stacy Gutiérrez Ma documented in this encounterOhio State Health System04-18-2023 Miscellaneous Notes* Telephone Encounter - Stacy Hernandez - 09/08/2022 2:27 PM EDT Pharmacy-Reviewed Medication History Patient Name:.Ariadna Haley : 1980 Patient Contact Attempt: First attempt Adherence Packing Program Accepted? No, patient does not wish to participate. Patient is not eligible for adherence packaging because PCP is not within [facility]. Patient wishes to continue at [facility] since medication bottles will look the same and then she can pick-up the medications when she needs them. Stacy Hernandez September 08, 2022 2:28 PM [facility] [phone] documented in this encounterOhio State Health System04-17-2023 History of Present illness Narrative* Christie Phan MD - 09/07/2022 2:00 PM EDT Images from the original note were not included. [facility] Virtual Follow-Up [...] which included preparing to see the patient, dszu-so-eoye patient care, completing clinical documentation, performing a medically appropriate examination, counseling and educating the patient/family/caregiver, ordering medications, tests, or p rocedures, and communicating with other HCPs (not separately reported). I have communicated my name and active licensure. The patient's identity and physical location wereverified at the time of this visit. Either the patient or their legal business office representative has been informed of the risks and benefits of -- and alternatives to -- treatment through a remote evaluation andconsents to proceed with the evaluation remotely. Christie Phan MD, CT, [facility] Lifestyle Medicine Specialist documented in this encounterOhio State Health System04-17-2023 Nurse Note* Milagro Mendiola MA - 09/07/2022 2:00 PM EDT Called pt to do intake for video visit pt unavailable lft vm msg sent my chart. Milagro Mendiola MA documented in this encounterOhio State Health System04-10-2023 Miscellaneous Notes* Telephone Encounter - Shantel Higgins MA - 08/31/2022 8:38 AM EDT called [facility] pharmacy - pharmacy had 1 refill remaining no action needed from our office documented in this encounterOhio State Health System04-06-2023 Nurse Note* Stacy Gutiérrez Ma - 08/27/2022 10:31 AM EDT Patient Identification confirmed: yes. Injection given and documented on JUL per provider order. Stacy Gutiérrez Ma documented in this encounterOhio State Health System04-06-2023 History of Present illness Narrative* Rebekah Rojas APRN.SPEECH THERAPY DIRECTOR - 08/27/2022 10:00 AM EDT Images from the original note were not included. NAME: Ariadna Haley [facility] NO.: [id number] DATE OF SERVICE: August 27, 2022 (Bob) [...] injections. Shefollows with multiple doctors including and page technician, oil gauger, farmworker bulbs and PCP. She has been told they [...] APRN.CNP Hematology and Oncology Services Provided at: [place], [place] CC: Manuel Ferris MD [address] [facility] [address] I spent a total of 30 minutes on the date of the service which included preparing to see the patient, tcpc-my-bfql patient care, completing clinical documentation, obtaining and/or reviewing separately obtained history, performing a medically appropriate examination, counseling and educating the pat ient/family/caregiver, ordering medications, tests, or procedures, independently interpreting results (not separately reported), and communicating results to the patient/family/caregiver. documented in this encounterCleveland [id number] Miscellaneous Notes* Telephone Encounter - Freda Noland RN - 08/19/2022 6:42 PM EDT -noted MyChart message read by patient 08/19/22 . Last read by Ariadna Haley at 3:33 PM on 08/19/2022 * Telephone Encounter - Lynne Ni MD - 08/19/2022 3:21 PM EDT Please Call patient if MyChart note not read to review results/released to My Chart if tests completed at [facility]: Improved/ mildly high normal inflammatory test- will monitor. Improved/mildly low vitamin b12- take over the counter 6218-0383 mcg daily. Improved/ normal rest of rheum [...] accordingly. Lynne Ni MD documented in this encounterOhio State Health System03-28-2023 Miscellaneous Notes* Telephone Encounter - Beatriz Sanchez [...] accordingly. Lynne Ni MD documented in this encounterOhio State Health System03-20-2023 Miscellaneous Notes* Telephone Encounter - Christie Phan MD - 08/10/2022 9:46 AM EDT [facility] requesting refill, patient never started according to the chart and I have not seen her in follow-up. * Telephone Encounter - Jami Everett Cma - 08/10/2022 7:40 AM EDT [facility] Pharmacy request for the following refill(s): Requested Prescriptions Pending Prescriptions Disp Refills DULoxetine (CYMBALTA) 20 mg capsule [Pharmacy Med Name: DULOXETINE HCL DR 20 MG CAP] 30 capsule 2 Sig: TAKE 1 CAPSULE BY MOUTH ONCE DAILY Please review and advise. Jami Everett Cma documented in this encounterOhio State Health System03-06-2023 Instructions* Patient Instructions* Lexus Heck APRN.SPEECH THERAPY DIRECTOR - 07/27/2022 9:12 PM EST Images from the original note were not included. Your most recent body mass index (BMI) that we have on record is 40.56 kg/m2. Obstructive sleep apnea (JOSE RAFAEL) worsens with an increase in weight; reduction in weight may improve or resolve your JOSE RAFAEL. Ifyou are not already seeking treatment, there are resources available at the [facility] such as a nutrition consultation or referral to weight management programs at our [facility] [place]. Please let us know if we can assist with a referral. - Continue CPAP at 5-15 cmH2O. - Remember to clean your mask and equipment regularly, as directed. - You should be eligible for new supplies approximately every 3-6 months, depending on your insurance coverage. Contact your [employer] company for new supplies. -Your insurance requires [...] the central scheduling system for the [facility] [place] at [phone]. MyChart now offers direct scheduling for patients to schedule appointments. Virtual visits are also available. If not covered by your insurance, there is a 35% discount. Please contact your insurance to determine coverage. Call the office at [phone], option #5 for questions. documented in this encounterOhio State Health System03-06-2023 History of Present illness Narrative* Lexus Heck APRN.CNP - 07/27/2022 10:30 AM EST Images from the original note were not included. [facility] Virtual Visit [...] will have a prescription sent to a [employer] company - [employer] who will be calling you in the next 1-2 weeks or so. Please call them directly or us if you do not hear from them in this time frame. - Will request formal mask fitting - You should be eligible for new supplies approximately every 3-6 months, depending on your insurance coverage. - If your mask doesn't fit well, call the [employer] company before 30 days are up to [...] ensure the besttime for you. [facility] on 04/13/22 CONSULT TO SLEEP MEDICINE - ADULT CPAP/BIPAP/OTHER PAP THERAPY ORDER Lawanda Miranda MD Interval history : Here for follow up for sleep apnea management. SLEEP APNEA Sleep apnea type : JOSE RAFAEL Most Recent Apnea-Hypopnea Index (AHI): 5.3 Treatment : PAP therapy DME: Josh Reese DME fax: [phone] DME ph: [phone] PAP History: Current PAP settin-15 cm H2O. [...] or near accidents due to drowsy drivin Napoleon Sleepiness Scale 04/12/2022 07/23/2022 Score 4 (No [...] medications, tests, or procedures. documented in this encounterOhio State Health System03-03-2023 Miscellaneous Notes* Telephone Encounter - Kyara Basurto [...] back to this agent, [facility]. 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 documented in this [facility]03-01-2023 Miscellaneous Notes* Telephone Encounter - Gem Mercedes RN - 07/22/2022 2:37 PM EST [employer] message sent documented in this encounterOhio State Health System12-28-2022 History of Present illness Narrative* Kenzie Shannon - 05/20/2022 2:28 PM EST Patient Identification confirmed: yes. Injection given and documented on JUL per provider order. Kenzie Shannon documented in this encounterOhio State Health System12-28-2022 Miscellaneous Notes* Addendum Note - Vera Najera MD - 05/20/2022 2:27 PM ESTAddended by: VERA NAJERA on: 05/20/2022 02:27 PM Modules accepted: Orders documented in this [facility]12-28-2022 Instructions* Patient Instructions* Vera Najera MD - 05/20/2022 2:23 PM EST B12 Shot Today and every 4 weeks Get fit for CPAP mask and setting this 05/28/2021 Continue Folic acid. RTC in 8 Weeks - labs 1 week before. documented in this encounterOhio State Health System12-28-2022 History of Present illness Narrative* Vera Najera MD - 05/20/2022 1:30 PM EST Images from the original note were not included. NAME: Tera Ariadna [facility] NO.: [id number] DATE OF SERVICE: May 20, 2022 ([place]) [...] which included preparing to see the patient, [id number] patient care, completing clinical documentation, performing a medically appropriate examination, counseling and educating the patient/family/caregiver, ordering medications, tests, or p rocedures, and independently interpreting results (not separately reported). Vera Najera MD, CPE Hematology and Oncology Services Provided at: [place], [place] CC: Vera Najera [address] [place] [address] [facility] [id number] Manuel Ferris MD, MD [address] [facility] [address] CC: Manuel Ferris MD [address] [facility] [address] documented in this encounterOhio State Health System12-13-2022 Miscellaneous Notes* Telephone Encounter - Gem Mercedes RN - 05/05/2022 2:39 PM EST Faxed order, office notes, demographics, and sleep study to: DME name: Josh Reese YUNIOR fax: [phone] DME ph: [phone] Confirmation received. documented in this encounterOhio State Health System12-13-2022 Miscellaneous Notes* Telephone Encounter - Gem Mercedes RN - 05/05/2022 12:00 PM EST [email or web address] message sent documented in this encounterOhio State Health System12-13-2022 Miscellaneous Notes* Telephone Encounter - ANALILIA Monterroso - 05/05/2022 11:36 AM EST [facility] received your PAP order. Due to a major EV Connect recall and manufacturing shortage, we are unable to fulfill the request to provide your patient with a CPAP/BIPAP machine at this time. We will keep the request on file and provide when inventory is available or you can forward the order to another DME provider such as [employer], [employer] or [facility]. Caring for our patients is our top priority and we apologize for this delay. Thank you for your patience during this time. [phone] #1 documented in this encounterOhio State Health System12-02-2022 Miscellaneous Notes* Telephone Encounter - Ny Beebe [...] has noted concern for EDS. Her oil gauger has told her that she has Lupus. Based on her history, I noted we can offer in-person evaluations for herself and/or her son to see if any genetic testing may be useful. I validated and provided support on the difficulty with her ambulation and transport concerns. [facility] and only available at [facility]. I offered social work and/or transport assistance for the visit. She declined this and will discuss with her regarding the transport. She verbalized understanding the reasons for in-person evaluation recommended. She has the [facility] line and will call to reschedule for an in-person evaluation at [facility]. Ny Beebe MD Machine Package Sealer, Associate Staff [facility] documented in this encounterOhio State Health System11-30-2022 Miscellaneous Notes* Telephone Encounter - Eliza Licea, [...] copy of the report. Confirmed patient's email [email or web address] Eliza Licea Genetic Counselor Rolled Materials Worker documented in this encounterOhio State Health System11-08-2022 Miscellaneous Notes* Telephone Encounter - Renate Lawrence MA - 03/31/2022 2:34 PM EST [facility] pharmacy electronically requests the following refill(s) Requested Prescriptions Pending Prescriptions Disp Refills DULoxetine (CYMBALTA) 20 mg capsule [Pharmacy Med Name: DULOXETINE HCL DR 20 MG CAP] 30 capsule 2 Sig: TAKE 1 CAPSULE BY MOUTH ONCE DAILY Renate Lawrence MA documented in this encounterOhio State Health System11-07-2022 Miscellaneous Notes* Telephone Encounter - Maria Eugenia Sheehan LPN - 03/30/2022 11:53 AM EST [facility] and sent Concil[employer]hart regarding Dr. Nelson's directive. * Telephone Encounter [...] Thanks. Misty Nelson MD documented in this encounterOhio State Health System11-07-2022 Miscellaneous Notes* Telephone Encounter - Maria Eugenia Sheehan LPN - 03/30/2022 11:49 AM EST LVM and sent MyChart regarding Dr. Nelson's directive. documented in this [facility]10-26-2022 Instructions* Patient Instructions* Vera Najera MD - 03/18/2022 11:16 AM EDT Referral for sleep study pending Start on Folic acid. RTC in 8 Weeks - labs 1 week before. documented in this encounterOhio State Health System10-26-2022 History of Present illness Narrative* Vera Najera MD - 03/18/2022 10:45 AM EDT Images from the original note were not included. NAME: Jose Carlosfrancisco javierAriadna CLINIC NO.: [id number] DATE OF SERVICE: March 18, 2022 ([place]) [...] which included preparing to see the patient, [id number] patient care, completing clinical documentation, performing a medically appropriate examination, counseling and educating the patient/family/caregiver, ordering medications, tests, or p rocedures, and independently interpreting results (not separately reported). Vera Najera MD, CPE Hematology and Oncology Services Provided at: [place], [place] CC: Manuel Ferris MD [address] [facility] [address] documented in this encounterOhio State Health System10-18-2022 History of Present illness Narrative* Misty Nelson MD - 03/10/2022 2:14 PM EDT VIRTUAL VISIT PROGRESS NOTE This is a virtual visit using [employer] video visit. It required patient-provider interaction for [...] the HR increases again She sees a radio mechanic helper in [place] PCP is running the Holter and echo [...] but was not pursued yet Lives in [place] She did have LN biopsy in the [...] visit. Misty Nelson MD documented in this encounterOhio State Health System10-17-2022 History of Past illness Narrative* Problem Noted Date Diagnosed Date Resolved Date Obesity, Class II, BMI 35-39.9 03/09/2022 03/10/2023 Obesity (BMI 30-39.9) 05/31/20142016 documented as of this encounter (statuses as of 03/10/2023) [facility] of Past illness Narrative* Problem Noted Date Diagnosed Date Resolved Date Obesity, Class II, BMI 35-39.9 03/09/2022 03/10/2023 Obesity (BMI 30-39.9) 05/31/20142016 documented as of this encounter (statuses as of 03/11/2023) [address]17-[address]22 History of Past illness Narrative* Problem Noted Date Diagnosed Date Resolved Date Obesity, Class II, BMI 35-39.9 03/09/2022 03/10/2023 Obesity (BMI 30-39.9) 05/31/20142016 documented as of this encounter (statuses as of 03/19/2023) [address]17-2022 History of Past illness Narrative* Problem Noted Date Diagnosed Date Resolved Date Obesity, Class II, BMI 35-39.9 03/09/2022 03/10/2023 Obesity (BMI 30-39.9) 05/31/20142016 documented as of this encounter (statuses as of 03/24/2023) [address]17-2022 History of Past illness Narrative* Problem Noted Date Diagnosed Date Resolved Date Obesity, Class II, BMI 35-39.9 03/09/2022 03/10/2023 Obesity (BMI 30-39.9) 05/31/20142016 documented as of this encounter (statuses as of 04/16/2023) [address]17-[address]22 History of Past illness Narrative* Problem Noted Date Diagnosed Date Resolved Date Obesity, Class II, BMI 35-39.9 03/09/2022 03/10/2023 Obesity (BMI 30-39.9) 05/31/20142016 documented as of this encounter (statuses as of 04/23/2023) [address]17-[address]22 History of Past illness Narrative* Problem Noted Date Diagnosed Date Resolved Date Obesity, Class II, BMI 35-39.9 03/09/2022 03/10/2023 Obesity (BMI 30-39.9) 05/31/20142016 documented as of this encounter (statuses as of 04/27/2023) [address]17-[address]22 History of Past illness Narrative* Problem Noted Date Diagnosed Date Resolved Date Obesity, Class II, BMI 35-39.9 03/09/2022 03/10/2023 Obesity (BMI 30-39.9) 05/31/20142016 documented as of this encounter (statuses as of 04/27/2023) [address]17-[address]22 History of Past illness Narrative* Problem Noted Date Diagnosed Date Resolved Date Obesity, Class II, BMI 35-39.9 03/09/2022 03/10/2023 Obesity (BMI 30-39.9) 05/31/20142016 documented as of this encounter (statuses as of 05/31/2023) [address]17-[address]22 History of Past illness Narrative* Problem Noted Date Diagnosed Date Resolved Date Obesity, Class II, BMI 35-39.9 03/09/2022 03/10/2023 Obesity (BMI 30-39.9) 05/31/20142016 documented as of this encounter (statuses as of 07/13/2023) [address]17-[address]22 History of Past illness Narrative* Problem Noted Date Diagnosed Date Resolved Date Obesity, Class II, BMI 35-39.9 03/09/2022 03/10/2023 Obesity (BMI 30-39.9) 05/31/20142016 documented as of this encounter (statuses as of 07/13/2023) [address]17-[address]22 History of Past illness Narrative* Problem Noted Date Diagnosed Date Resolved Date Obesity, Class II, BMI 35-39.9 03/09/2022 03/10/2023 Obesity (BMI 30-39.9) 05/31/20142016 documented as of this encounter (statuses as of 08/05/2023) [address]17-[address] History of Past illness Narrative* Problem Noted Date Diagnosed Date Resolved Date Obesity, Class II, BMI 35-39.9 03/09/2022 03/10/2023 Obesity (BMI 30-39.9) 05/31/20142016 documented as of this encounter (statuses as of 08/12/2023) [address]17-[address]22 History of Past illness Narrative* Problem Noted Date Diagnosed Date Resolved Date Obesity, Class II, BMI 35-39.9 03/09/2022 03/10/2023 Obesity (BMI 30-39.9) 05/31/20142016 documented as of this encounter (statuses as of 09/01/2023) [facility] of Past illness Narrative* Problem Noted Date Diagnosed Date Resolved Date Obesity, Class II, BMI 35-39.9 03/09/2022 03/10/2023 Obesity (BMI 30-39.9) 05/31/20142016 documented as of this encounter (statuses as of 09/06/2023) [facility] of Past illness Narrative* Problem Noted Date Diagnosed Date Resolved Date Obesity, Class II, BMI 35-39.9 03/09/2022 03/10/2023 Obesity (BMI 30-39.9) 05/31/20142016 documented as of this encounter (statuses as of 09/11/2023) [facility] Instructions* Patient Instructions* Christie Phan MD - 03/09/2022 12:47 PM EDT Check EKG for prolonged QT. If normal, I would try going back on the Lexapro, can recheck an EKG inabout a month to make sure that things are going ok. (I'm leaving this, but we are changing to Cymbalta) Tilt Table Test [email or web address] documented in this encounterOhio State Health System10-17-2022 History of Present illness Narrative* Christie Phan MD - 03/09/2022 12:08 PM EDT Images from the original note were not included. [facility] Virtual Initial [...] ago Has never really been a great repairer Went to [facility] was able to [...] the date of the service which included [id number] patient care and counseling and educating the patient/family/caregiver. documented in this encounterOhio State Health System10-14-2022 Miscellaneous Notes* Telephone Encounter - Krista Braswell MA - 03/06/2022 7:08 AM EDT Pt was notified via . * Telephone Encounter - Lynne Ni MD - 03/05/2022 5:56 PM EDT Please Call patient if MyChart note not read to review results/released to My Chart if tests completed at [facility]: Mildly high vitamin b12- decrease over [...] accordingly. Lynne Ni MD documented in this encounterOhio State Health System10-12-2022 Instructions* Patient Instructions* Vera Najera MD - 03/04/2022 11:42 AM EDT Labs today. Referral for sleep study. RTC in 2 weeks. Consider immunology referral. Referral to lifestyle medicine documented in this encounterOhio State Health System10-12-2022 History of Present illness Narrative* Vera Najera MD - 03/04/2022 11:19 AM EDT Images from the original note were not included. NAME: Ariadna Haley [facility] NO.: [id number] DATE OF SERVICE: March 04, 2022 Referring [...] which included preparing to see the patient, [id number]-on-[id number] patient care, completing clinical documentation, obtaining and/or reviewing separately obtained history, performing a medically appropriate examination, counseling and educating the pat ient/family/caregiver, ordering medications, tests, or procedures, and independently interpreting results (not separately reported). Vera Najera MD, CPE Hematology and Oncology Services Provided at: [place], [place] CC: Manuel Ferris MD [facility] [address] Manuel Ferris MD, [address] [place] [address] documented in this encounterOhio State Health System2022 History of Present illness Narrative* Alhaji Head DO - 02/24/2022 6:00 PM EDT VIRTUAL VISIT PROGRESS NOTE This is a virtual visit using [employer] video visit. 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 Her oil gauger is Dr. Ni. Dr. Ni and I [...] - R00.0) Nov, [place] (ICD-10 - R23.2) [facility] Other 06-03-2022 Nurse Note* Lynne Ni MD - 10/24/2021 8:32 AM EDT See progress note documented in this encounterOhio State Health System06-03-2022 History of Present illness Narrative* [...] Due for eye exam. Labs sent to [facility]/completed in 06/2021 (no results faxed to office, [...] Date(s) Administered COVID-19 vaccine, age 12+ yr ([employer]App[employer] - PURPLE TOP) 09/28/2020 10/19/2020 Pneumovax no [...] Diagnostic tests reviewed for today's visit: Outside [place] 06/2021 low vitamin D 16, vitamin b12-307;high [...] Due for eye exam. Labs sent to [facility]/completed in 06/2021 (no results faxed to office, [...] (200mg) daily with a meal Please see integrated program teacher every 6-12months while on Hydroxychloroquine. Recommend goal: [...] your toes, sit-ups, using row machine long term care social worker pain recommendations per primary care provider/pain clinic [...] video & audio (virtual) or phone or mbzh-pc-mwus patient care, completing clinical documentation, obtaining and/or [...] body? With SOME difficulty Bend down to tile picker clothing from the floor? With SOME [...] my health Strongly Agree documented in this encounterOhio State Health System06-03-2022 Instructions* Patient Instructions* Lynne Ni [...] (200mg) daily with a meal Please see integrated program teacher every 6-12months while on Hydroxychloroquine. Recommend goal: [...] your toes, sit-ups, using row machine long term care social worker pain recommendations per primary care provider/pain clinic Thank you. documented in this encounterOhio State Health System05-25-2022 Evaluation note* Encounter Date Diagnosis [...] I will defer that to her oil gauger. September, Tachycardia (ICD-10 - R00.0) September, Flushing (ICD-10 - R23.2) [facility] Other 04-28-2022 Evaluation note* Encounter Date Diagnosis Assessment Notes Treatment Notes Treatment Clinical Notes Aug, Elevated sed rate (ICD-10 - R70.0) [facility] Other 04-21-2022 Evaluation note* Encounter Date Diagnosis [...] I will defer that to her oil gauger. [facility] Other 05-17-2021 Hospital Discharge instructions* Instructions* So [...] be sent through Care Everywhere. * amlodipine (Guinean) * nitroglycerin (oral/sublingual) (Guinean) documented [facility] this [facility] Phone: [phone]) 740-713205-17-2021 History of Present illness Narrative* So [place] [...] to be completed. documented in this encounterOhiohealth [facility]ville [facility] CenterHabbits Phone: [phone] History of Past illness Narrative* Problem Noted Date Resolved Date Obesity (BMI 30-39.9) 05/31/2014 07/06/2016 documented as of this encounter (statuses as of 10/24/2021) [address]08-2015 History of Past illness Narrative* Problem Noted Date Resolved Date Obesity (BMI 30-39.9) 05/31/2014 07/06/2016 documented as of this encounter (statuses as of 02/25/2022) [address]08-2015 History of Past illness Narrative* Problem Noted Date Resolved Date Obesity (BMI 30-39.9) 05/31/2014 07/06/2016 documented as of this encounter (statuses as of 03/02/2022) [place] [address]-08-2015 History of Past illness Narrative* Problem Noted Date Resolved Date Obesity (BMI 30-39.9) 05/31/2014 07/06/2016 documented as of this encounter (statuses as of 03/04/2022) [address]08-2015 History of Past illness Narrative* Problem Noted Date Resolved Date Obesity (BMI 30-39.9) 05/31/2014 07/06/2016 documented as of this encounter (statuses as of 03/05/2022) [address]08-2015 History of Past illness Narrative* Problem Noted Date Resolved Date Obesity (BMI 30-39.9) 05/31/2014 07/06/2016 documented as of this encounter (statuses as of 03/06/2022) [address]08[address]2015 History of Past illness Narrative* Problem Noted Date Resolved Date Obesity (BMI 30-39.9) 05/31/2014 07/06/2016 documented as of this encounter (statuses as of 03/09/2022) [address]08[address]2015 History of Past illness Narrative* Problem Noted Date Resolved Date Obesity (BMI 30-39.9) 05/31/2014 07/06/2016 documented as of this encounter (statuses as of 03/10/2022) [address]08[address]2015 History of Past illness Narrative* Problem Noted Date Resolved Date Obesity (BMI 30-39.9) 05/31/2014 07/06/2016 documented as of this encounter (statuses as of 03/10/2022) [address]08[address]2015 History of Past illness Narrative* Problem Noted Date Resolved Date Obesity (BMI 30-39.9) 05/31/2014 07/06/2016 documented as of this encounter (statuses as of 03/12/2022) [address]08[address]2015 History of Past illness Narrative* Problem Noted Date Resolved Date Obesity (BMI 30-39.9) 05/31/2014 07/06/2016 documented as of this encounter (statuses as of 03/18/2022) [address]08[address]2015 History of Past illness Narrative* Problem Noted Date Resolved Date Obesity (BMI 30-39.9) 05/31/2014 07/06/2016 documented as of this encounter (statuses as of 03/22/2022) [address]08[address]2015 History of Past illness Narrative* Problem Noted Date Resolved Date Obesity (BMI 30-39.9) 05/31/2014 07/06/2016 documented as of this encounter (statuses as of 03/30/2022) [address]08[address]2015 History of Past illness Narrative* Problem Noted Date Resolved Date Obesity (BMI 30-39.9) 05/31/2014 07/06/2016 documented as of this encounter (statuses as of 03/30/2022) [address]08[address]2015 History of Past illness Narrative* Problem Noted Date Resolved Date Obesity (BMI 30-39.9) 05/31/2014 07/06/2016 documented as of this encounter (statuses as of 04/03/2022) [address]08[address]2015 History of Past illness Narrative* Problem Noted Date Resolved Date Obesity (BMI 30-39.9) 05/31/2014 07/06/2016 documented as of this encounter (statuses as of 04/03/2022) [address]08[address]2015 History of Past illness Narrative* Problem Noted Date Resolved Date Obesity (BMI 30-39.9) 05/31/2014 07/06/2016 documented as of this encounter (statuses as of 04/22/2022) [address]08[address]2015 History of Past illness Narrative* Problem Noted Date Resolved Date Obesity (BMI 30-39.9) 05/31/2014 07/06/2016 documented as of this encounter (statuses as of 04/24/2022) [address]08[address]2015 History of Past illness Narrative* Problem Noted Date Resolved Date Obesity (BMI 30-39.9) 05/31/2014 07/06/2016 documented as of this encounter (statuses as of 05/05/2022) [address]08[address]2015 History of Past illness Narrative* Problem Noted Date Resolved Date Obesity (BMI 30-39.9) 05/31/2014 07/06/2016 documented as of this encounter (statuses as of 05/05/2022) [address]08[address]2015 History of Past illness Narrative* Problem Noted Date Resolved Date Obesity (BMI 30-39.9) 05/31/2014 07/06/2016 documented as of this encounter (statuses as of 05/05/2022) [address]08[address]2015 History of Past illness Narrative* Problem Noted Date Resolved Date Obesity (BMI 30-39.9) 05/31/2014 07/06/2016 documented as of this encounter (statuses as of 05/26/2022) [address]08[address]2015 History of Past illness Narrative* Problem Noted Date Resolved Date Obesity (BMI 30-39.9) 05/31/2014 07/06/2016 documented as of this encounter (statuses as of 05/27/2022) [address]08[address]2015 History of Past illness Narrative* Problem Noted Date Resolved Date Obesity (BMI 30-39.9) 05/31/2014 07/06/2016 documented as of this encounter (statuses as of 07/22/2022) [address]08[address]2015 History of Past illness Narrative* Problem Noted Date Resolved Date Obesity (BMI 30-39.9) 05/31/2014 07/06/2016 documented as of this encounter (statuses as of 07/25/2022) [address]08[address]2015 History of Past illness Narrative* Problem Noted Date Resolved Date Obesity (BMI 30-39.9) 05/31/2014 07/06/2016 documented as of this encounter (statuses as of 07/27/2022) [address]08[address]2015 History of Past illness Narrative* Problem Noted Date Resolved Date Obesity (BMI 30-39.9) 05/31/2014 07/06/2016 documented as of this encounter (statuses as of 07/28/2022) [address]08[address]2015 History of Past illness Narrative* Problem Noted Date Resolved Date Obesity (BMI 30-39.9) 05/31/2014 07/06/2016 documented as of this encounter (statuses as of 08/10/2022) [address]08[address]2015 History of Past illness Narrative* Problem Noted Date Resolved Date Obesity (BMI 30-39.9) 05/31/2014 07/06/2016 documented as of this encounter (statuses as of 08/18/2022) [address]08[address]2015 History of Past illness Narrative* Problem Noted Date Resolved Date Obesity (BMI 30-39.9) 05/31/2014 07/06/2016 documented as of this encounter (statuses as of 08/19/2022) [address]08[address]2015 History of Past illness Narrative* Problem Noted Date Resolved Date Obesity (BMI 30-39.9) 05/31/2014 07/06/2016 documented as of this encounter (statuses as of 08/27/2022) [address]08[address]2015 History of Past illness Narrative* Problem Noted Date Resolved Date Obesity (BMI 30-39.9) 05/31/2014 07/06/2016 documented as of this encounter (statuses as of 08/29/2022) [address]08[address]2015 History of Past illness Narrative* Problem Noted Date Resolved Date Obesity (BMI 30-39.9) 05/31/2014 07/06/2016 documented as of this encounter (statuses as of 08/31/2022) [address]08[address]2015 History of Past illness Narrative* Problem Noted Date Resolved Date Obesity (BMI 30-39.9) 05/31/2014 07/06/2016 documented as of this encounter (statuses as of 09/08/2022) [address]08[address]2015 History of Past illness Narrative* Problem Noted Date Resolved Date Obesity (BMI 30-39.9) 05/31/2014 07/06/2016 documented as of this encounter (statuses as of 09/08/2022) [address]08[address]2015 History of Past illness Narrative* Problem Noted Date Resolved Date Obesity (BMI 30-39.9) 05/31/2014 07/06/2016 documented as of this encounter (statuses as of 09/24/2022) [address] History of Past illness Narrative* Problem Noted Date Resolved Date Obesity (BMI 30-39.9) 05/31/2014 07/06/2016 documented as of this encounter (statuses as of 10/22/2022) [address] History of Past illness Narrative* Problem Noted Date Resolved Date Obesity (BMI 30-39.9) 05/31/2014 07/06/2016 documented as of this encounter (statuses as of 10/25/2022) [address]2015 History of Past illness Narrative* Problem Noted Date Resolved Date Obesity (BMI 30-39.9) 05/31/2014 07/06/2016 documented as of this encounter (statuses as of 11/19/2022) [address]2015 History of Past illness Narrative* Problem Noted Date Resolved Date Obesity (BMI 30-39.9) 05/31/2014 07/06/2016 documented as of this encounter (statuses as of 11/25/2022) [address]2015 History of Past illness Narrative* Problem Noted Date Diagnosed Date Resolved Date Obesity (BMI 30-39.9) 05/31/20142016 documented as of this encounter (statuses as of 12/08/2022) [address] History of Past illness Narrative* Problem Noted Date Diagnosed Date Resolved Date Obesity (BMI 30-39.9) 05/31/20142016 documented as of this encounter (statuses as of 12/18/2022) [address]2015 History of Past illness Narrative* Problem Noted Date Diagnosed Date Resolved Date Obesity (BMI 30-39.9) 05/31/20142016 documented as of this encounter (statuses as of 12/18/2022) [address] History of Past illness Narrative* Problem Noted Date Diagnosed Date Resolved Date Obesity (BMI 30-39.9) 05/31/20142016 documented as of this encounter (statuses as of 12/21/2022) [address] History of Past illness Narrative* Problem Noted Date Diagnosed Date Resolved Date Obesity (BMI 30-39.9) 05/31/20142016 documented as of this encounter (statuses as of 12/22/2022) [address]2015 History of Past illness Narrative* Problem Noted Date Diagnosed Date Resolved Date Obesity (BMI 30-39.9) 05/31/20142016 documented as of this encounter (statuses as of 01/02/2023) [address]2015 History of Past illness Narrative* Problem Noted Date Diagnosed Date Resolved Date Obesity (BMI 30-39.9) 05/31/20142016 documented as of this encounter (statuses as of 01/13/2023) [address]2015 History of Past illness Narrative* Problem Noted Date Diagnosed Date Resolved Date Obesity (BMI 30-39.9) 05/31/20142016 documented as of this encounter (statuses as of 01/22/2023) [address]2015 History of Past illness Narrative* Problem Noted Date Diagnosed Date Resolved Date Obesity (BMI 30-39.9) 05/31/20142016 documented as of this encounter (statuses as of 01/26/2023) [address] History of Past illness Narrative* Problem Noted Date Diagnosed Date Resolved Date Obesity (BMI 30-39.9) 05/31/20142016 documented as of this encounter (statuses as of 02/04/2023) [address]2015 History of Past illness Narrative* Problem Noted Date Diagnosed Date Resolved Date Obesity (BMI 30-39.9) 05/31/20142016 documented as of this encounter (statuses as of 02/04/2023) [address]2015 History of Past illness Narrative* Problem Noted Date Diagnosed Date Resolved Date Obesity (BMI 30-39.9) 05/31/20142016 documented as of this encounter (statuses as of 02/07/2023) [address]2015 History of Past illness Narrative* Problem Noted Date Diagnosed Date Resolved Date Obesity (BMI 30-39.9) 05/31/20142016 documented as of this encounter (statuses as of 02/08/2023) [address] History of Past illness Narrative* Problem Noted Date Diagnosed Date Resolved Date Obesity (BMI 30-39.9) 05/31/20142016 documented as of this encounter (statuses as of 02/16/2023) [address] History of Past illness Narrative* Problem Noted Date Diagnosed Date Resolved Date Obesity (BMI 30-39.9) 05/31/20142016 documented as of this encounter (statuses as of 02/19/2023) [address] History of Past illness Narrative* Problem Noted Date Diagnosed Date Resolved Date Obesity (BMI 30-39.9) 05/31/20142016 documented as of this encounter (statuses as of 02/21/2023) [address] History of Past illness Narrative* Problem Noted Date Diagnosed Date Resolved Date Obesity (BMI 30-39.9) 05/31/20142016 documented as of this encounter (statuses as of 03/02/2023) [facility] Other systemic lupus erythematosus with [...] and myositis, unspecified [facility] Diagnosis Swelling of lymph nodes- Primary Enlargement of lymph nodes Other systemic lupus erythematosus with other organ involvement (HCC) On prednisone therapy Hair loss Alopecia, unspecified Bilateral sacroiliitis (HCC) Long-term use of Plaquenil 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-term (current) use of other medications [facility] Vitamin B12 deficiency- Primary Other B-complex deficiencies Vitamin D deficiency Unspecified vitamin D deficiency Elevated sed rate Elevated sedimentation rate Elevated C-reactive protein (CRP) [facility] Diagnosis 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 Other vitamin B12 deficiency anemia Somnolence, daytime Hypersomnia, unspecified Snoring Other dyspnea and respiratory abnormality Chronic fatigue and malaise Chronic fatigue syndrome Obesity, unspecified classification, unspecified obesity type, unspecified whether serious comorbidity present [facility] Diagnosis Obesity, Class II, BMI 35-39.9- [...] nonspecific immunological findings [facility] Diagnosis Megaloblastic anemia due to vitamin B12 deficiency- Primary Other vitamin B12 deficiency anemia High total serum IgM [facility] Diagnosis Raised level of immunoglobulins- Primary Other and unspecified nonspecific immunological findings Wound healing, delayed Open wound(s) (multiple) of unspecified site(s), complicated Current smoker Tobacco use disorder [facility] Diagnosis Family history of genetic disease- Primary Family history of other condition [facility] High total serum IgM- Primary Elevated sed rate Elevated sedimentation rate Somnolence, daytime Hypersomnia, unspecified JOSE RAFAEL (obstructive sleep apnea) Obstructive sleep apnea (adult) (pediatric) [facility] Diagnosis Megaloblastic anemia due to vitamin B12 deficiency- Primary Other vitamin B12 deficiency anemia Elevated sed rate Elevated sedimentation rate [facility] Diagnosis Megaloblastic anemia due to vitamin B12 deficiency- Primary Other vitamin B12 deficiency anemia Elevated sed rate Elevated sedimentation rate High total serum IgM Chronic fatigue and malaise Chronic fatigue syndrome [facility] Diagnosis JOSE RAFAEL (obstructive sleep apnea)- Primary Obstructive sleep apnea (adult) (pediatric) [facility] Diagnosis Other systemic lupus erythematosus with other organ involvement (HCC)- Primary Family history of Crohn's disease Family history of other digestive disorders Fibromyalgia Mylagia and myositis, unspecified [facility] Diagnosis Other systemic lupus erythematosus with other organ involvement (HCC)- Primary Elevated LFTs Other abnormal blood chemistry Anemia of chronic disease Anemia of other chronic disease 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 term care social worker 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-term (current) use of other medications [facility] Diagnosis Megaloblastic anemia due to vitamin B12 deficiency- Primary Other vitamin B12 deficiency anemia Elevated sed rate Elevated sedimentation rate [facility] Diagnosis Megaloblastic anemia due to vitamin B12 deficiency- Primary Other vitamin B12 deficiency anemia Elevated sed rate Elevated sedimentation rate High total serum IgM Chronic fatigue and malaise Chronic fatigue syndrome JOSE RAFAEL (obstructive sleep apnea) Obstructive sleep apnea (adult) (pediatric) [facility] Diagnosis Vitamin D deficiency Unspecified vitamin D deficiency [facility] Diagnosis Obesity, Class III, BMI >= 40- Primary Morbid obesity Polypharmacy 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-term (current) use of other medications Pre-diabetes Other abnormal glucose [facility] Diagnosis Megaloblastic anemia due to vitamin B12 deficiency- Primary Other vitamin B12 deficiency anemia Elevated sed rate Elevated sedimentation rate [facility] Diagnosis Megaloblastic anemia due to vitamin B12 deficiency- Primary Other vitamin B12 deficiency anemia Elevated sed rate Elevated sedimentation rate [facility] Diagnosis Megaloblastic anemia due to vitamin B12 deficiency- Primary Other vitamin B12 deficiency anemia Elevated sed rate Elevated sedimentation rate High total serum IgM Chronic fatigue and malaise Chronic fatigue syndrome Obstructive sleep apnea syndrome Obstructive sleep apnea (adult) (pediatric) [facility] Diagnosis Megaloblastic anemia due to vitamin B12 deficiency- Primary Other vitamin B12 deficiency anemia Elevated sed rate Elevated sedimentation rate [facility] Diagnosis Other systemic lupus erythematosus with other organ involvement (HCC) 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 term care social worker 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-term (current) use of other medications [facility] Diagnosis Megaloblastic anemia due to vitamin B12 deficiency- Primary Other vitamin B12 deficiency anemia Chronic fatigue and malaise Chronic fatigue syndrome [facility] Diagnosis High total serum IgM- Primary Low serum IgG for age Current smoker Tobacco use disorder [facility] Diagnosis Obesity, Class II, BMI 35-39.9 Obesity, unspecified Prediabetes Other abnormal glucose [facility] Diagnosis Megaloblastic anemia due to vitamin B12 deficiency- Primary Other vitamin B12 deficiency anemia Elevated sed rate Elevated sedimentation rate [facility] Diagnosis Other systemic lupus erythematosus with other organ involvement (HCC)- Primary Vitamin D deficiency Unspecified vitamin D deficiency Elevated LFTs Other abnormal blood chemistry Anemia of chronic disease Anemia of other chronic disease Elevated sed rate Elevated sedimentation rate Elevated C-reactive protein (CRP) [facility] Diagnosis Other systemic lupus erythematosus with [...] Bilateral wrist pain 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, forearm alf 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-term (current) use of steroids Steroid-induced osteoporosis Other osteoporosis 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 [facility] Diagnosis Systemic lupus erythematosus with other organ involvement (HCC)- Primary [facility]* Diagnosis Megaloblastic anemia due to vitamin B12 deficiency- Primary Other vitamin B12 deficiency anemia High total serum IgM Elevated sed rate Elevated sedimentation rate [facility] Diagnosis Other systemic lupus erythematosus with other organ involvement (HCC)- Primary [facility] Diagnosis Other systemic lupus erythematosus with other organ involvement (HCC) 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 term care social worker 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-term (current) use of other medications [facility] Diagnosis Megaloblastic anemia due to vitamin B12 deficiency- Primary Other vitamin B12 deficiency anemia Elevated sed rate Elevated sedimentation rate [facility] Diagnosis Megaloblastic anemia due to vitamin B12 deficiency- Primary Other vitamin B12 deficiency anemia Elevated sed rate Elevated sedimentation rate Chronic fatigue and malaise Chronic fatigue syndrome High total serum IgM JOSE RAFAEL (obstructive sleep apnea) Obstructive sleep apnea (adult) (pediatric) [facility]* Diagnosis Insulin resistance, unspecified- Primary Depression, recurrent (HCC) Major depressive disorder, recurrent episode, unspecified Chronic pain syndrome [facility]* Diagnosis Systemic lupus erythematosus, unspecified SLE type, unspecified organ involvement status (HCC)- Primary [facility] Diagnosis Megaloblastic anemia due to vitamin B12 deficiency- Primary Other vitamin B12 deficiency anemia Elevated sed rate Elevated sedimentation rate [facility]* Diagnosis Megaloblastic anemia due to vitamin B12 deficiency- Primary Other vitamin B12 deficiency anemia Elevated sed rate Elevated sedimentation rate [facility] Diagnosis Obesity, Class III, BMI >= 40- Primary Morbid obesity FUO (fever of unknown origin) Fever, unspecified Other chronic pain [facility]* Diagnosis Obesity, Class III, BMI >= 40 Morbid obesity [facility] Diagnosis Obesity, Class III, BMI >= 40- Primary Morbid obesity Other chronic pain documented in this encounter [facility] note* Diagnosis Irregular heart rate- Primary Essential hypertension Unspecified essential hypertension Autonomic dysfunction Obstructive sleep apnea syndrome Obstructive sleep apnea (adult) (pediatric) Primary hypertension Unspecified essential hypertension documented in this encounter [facility] Work Phone: Evaluation note* Diagnosis Autoimmune disease (CMS/HCC)- Primary Autoimmune disease, not elsewhere classified Autonomic dysfunction Lumbosacral radiculopathy Thoracic or lumbosacral neuritis or radiculitis, unspecified Bilateral leg weakness Muscle weakness (generalized) [facility] Diagnosis Shortness of breath- Primary Paroxysmal supraventricular tachycardia PAC (premature atrial contraction) Supraventricular premature beats Current smoker Systemic lupus erythematosus, unspecified SLE type, unspecified organ involvement status (CMS/HCC) Palpitations Obstructive sleep apnea syndrome Obstructive sleep apnea (adult) (pediatric) Morbid obesity (CMS/HCC) Morbid obesity Bilateral lower extremity edema documented in this encounter [facility] Work Phone: Evaluation note* Diagnosis Megaloblastic anemia due to vitamin B12 deficiency- Primary Other vitamin B12 deficiency anemia Elevated sed rate Elevated sedimentation rate documented in this encounter [facility] note* Diagnosis Systemic lupus erythematosus with other organ involvement (HCC)- Primary [facility] Diagnosis Systemic lupus erythematosus with other organ involvement (HCC)- Primary [facility] Diagnosis Megaloblastic anemia due to vitamin B12 deficiency- Primary Other vitamin B12 deficiency anemia Elevated sed rate Elevated sedimentation rate [facility] Diagnosis Other systemic lupus erythematosus with other organ involvement (HCC)- Primary Vitamin D deficiency Unspecified vitamin D deficiency Elevated LFTs Other abnormal blood chemistry Anemia of chronic disease Anemia of other chronic disease Elevated sed rate Elevated sedimentation rate Elevated C-reactive protein (CRP) [facility] Diagnosis Megaloblastic anemia due to vitamin [...] other medications Long-term use of high-risk medication alf 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 Encounter for [...] with other organ involvement (HCC) Encounter for halfway 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-term [...] for pulmonary tuberculosis [facility] Diagnosis Other systemic lupus erythematosus with other organ involvement (HCC) [facility] Diagnosis Systemic lupus erythematosus with other organ involvement (HCC)- Primary [facility] Diagnosis Elevated sed rate- Primary Elevated sedimentation rate Megaloblastic anemia due to vitamin B12 deficiency Other vitamin B12 deficiency anemia [facility] Diagnosis Pseudomonas infection- Primary Pseudomonas infection in conditions classified elsewhere and of unspecified site Other systemic lupus erythematosus with other organ involvement (HCC) On prednisone therapy Long-term use of Plaquenil 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-term (current) use of other medications [facility] Diagnosis Onset Date Resolution Status Lupus acute Recurrent Clostridioides difficile diarrhea acute Nipple discharge in female a cute Recurrent Clostridioides difficile diarrhea acute Lumbosacral spondylosis acut e Other chronic pain acute Sacroiliitis [facility] Work Phone: Evaluation note* Diagnosis JOSE RAFAEL (obstructive sleep apnea)- Primary Obstructive sleep apnea (adult) (pediatric) Somnolence, daytime Hypersomnia, unspecified [facility] Diagnosis Systemic lupus erythematosus with other organ involvement (HCC)- Primary [facility] Diagnosis Systemic lupus erythematosus with other organ involvement (HCC)- Primary [facility] Diagnosis Onset Date Resolution Status Nipple discharge in female a cute Recurrent Clostridioides difficile diarrhea acute Lumbosacral spondylosis acut e Other chronic pain acute Sacroiliitis [facility] Work Phone: Evaluation note* Diagnosis Elevated sed rate- Primary Elevated sedimentation rate Megaloblastic anemia due to vitamin B12 deficiency Other vitamin B12 deficiency anemia [facility] Diagnosis Onset Date Resolution Status Nipple discharge in female a cute Recurrent Clostridioides difficile diarrhea acute Lumbosacral spondylosis acut e Other chronic pain acute Sacroiliitis acute Lumbosacral spondylosis acut e Other chronic pain acute Sacroiliitis acute [facility] Work Phone: Evaluation note* Diagnosis Lumbosacral radiculopathy at L5 Degenerative disc disease, lumbar Cervical radiculopathy at C5 documented in this encounter [facility]* Diagnosis Onset Date Resolution Status Lumbosacral spondylosis acut e Other chronic pain acute Sacroiliitis acute Lumbosacral spondylosis acut e Other chronic pain acute Sacroiliitis acute [facility] Work Phone: Evaluation note* Diagnosis Other systemic lupus erythematosus with other organ involvement (HCC) [facility] Diagnosis Other systemic lupus erythematosus with [...] both feet Long-term use of high-risk medication 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-term (current) use of steroids Bilateral hand pain Pain in limb Systemic lupus erythematosus, unspecified SLE type, unspecified organ involvement status (HCC) Vitamin B12 deficiency Other B-complex deficiencies Discoid lupus erythematosus Lupus erythematosus [facility] Diagnosis Nipple discharge Other sign and symptom in breast documented in this encounter [facility]* Diagnosis Elevated sed rate- Primary Elevated sedimentation rate Megaloblastic anemia due to vitamin B12 deficiency Other vitamin B12 deficiency anemia [facility] Diagnosis Abnormal uterine bleeding (AUB) Menorrhagia with regular cycle documented in this encounter [facility]* Diagnosis Megaloblastic anemia due to vitamin B12 deficiency- Primary Other vitamin B12 deficiency anemia High total serum IgM JOSE RAFAEL (obstructive sleep apnea) Obstructive sleep apnea (adult) (pediatric) Elevated sed rate Elevated sedimentation rate Hypogammaglobulinemia (HCC) Hypogammaglobulinaemia, unspecified Frequent infections [facility] Diagnosis Oral thrush- Primary Candidiasis of mouth documented in this encounter [facility]* Diagnosis Oral thrush- Primary Candidiasis of mouth documented in this encounter [facility]* Diagnosis Systemic lupus erythematosus with other organ involvement (HCC)- Primary [facility] Diagnosis LPRD (laryngopharyngeal reflux disease)- Primary Acute laryngitis, without mention of obstruction Acute otalgia, right documented in this encounter [facility]* Diagnosis Autoimmune disease ([facility]) Autoimmune disease, not elsewhere classified Fibromyalgia Unspecified myalgia and myositis Numbness Disturbance of skin sensation documented in this encounter [facility]* Diagnosis Lumbosacral radiculopathy at L5- Primary Degenerative disc disease, lumbar Cervical radiculopathy at C5 documented [facility] Degenerative disc disease, lumbar- Primary Lumbosacral radiculopathy at L5 [facility] Diagnosis Frequent infections- Primary Megaloblastic anemia due to vitamin B12 deficiency Other vitamin B12 deficiency anemia Elevated sed rate Elevated sedimentation rate Hypogammaglobulinemia (HCC) Hypogammaglobulinaemia, unspecified Bilateral leg weakness Other musculoskeletal symptoms referable to limbs Discoid lupus erythematosus Lupus erythematosus [facility] Diagnosis Well woman exam with routine gynecological exam Routine gynecological examination Breast cancer screening by mammogram Breast nodule Other (abnormal) findings on radiological examination of breast [facility] Diagnosis Megaloblastic anemia due to vitamin B12 deficiency- Primary Other vitamin B12 deficiency anemia Hypogammaglobulinemia (HCC) Hypogammaglobulinaemia, unspecified Positive blood cultures Bacteremia Malaise and fatigue Other malaise and fatigue SOB (shortness of breath) Shortness of breath [facility] Diagnosis Elevated sed rate- Primary Elevated sedimentation rate Megaloblastic anemia due to vitamin B12 deficiency Other vitamin B12 deficiency anemia Hypogammaglobulinemia (HCC) Hypogammaglobulinaemia, unspecified Frequent infections Bilateral leg weakness Other musculoskeletal symptoms referable to limbs Discoid lupus erythematosus Lupus erythematosus [facility] Diagnosis Diarrhea, unspecified type- Primary Abdominal pressure Abdominal pain, unspecified site [facility] Diagnosis Other iron deficiency anemia- Primary [facility] Diagnosis Other systemic lupus erythematosus with other organ involvement (HCC) documented [facility]* Diagnosis Systemic lupus erythematosus with other organ involvement (HCC)- Primary [facility]* Diagnosis Systemic lupus erythematosus (CMS-HCC)- Primary Cold extremities Pain of lower extremity, unspecified laterality Rheumatoid arthritis, involving unspecified site, unspecified whether rheumatoid factor present ([facility]) Current smoker 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 documented in this encounter [facility]* Diagnosis Systemic lupus erythematosus (CMS-HCC)- Primary Cold extremities Pain of lower extremity, unspecified laterality Rheumatoid arthritis, involving unspecified site, unspecified whether rheumatoid factor present (CMS-HCC) Current smoker 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 Peripheral vascular disease, unspecified (CMS-HCC)- Primary Peripheral vascular disease, unspecified Cold extremities Systemic lupus erythematosus (CMS-HCC) [facility] Diagnosis Other systemic lupus erythematosus with other organ involvement (HCC)- Primary Vitamin D deficiency Unspecified vitamin D deficiency Elevated LFTs Other abnormal blood chemistry Anemia of chronic disease Anemia of other chronic disease Elevated sed rate Elevated sedimentation rate Elevated C-reactive protein (CRP) documented in this encounter [facility] note* Diagnosis Onset Date Resolution Status Admit Date Lumbosacral spondylosis acute F ebruary 2024 3:16pm Other chronic pain acute Februa ry 2024 3:16pm Sacroiliitis acute June 3:16pm [facility] Work Phone: Evaluation note* Diagnosis Elevated sed rate- Primary Elevated sedimentation rate Megaloblastic anemia due to vitamin B12 deficiency Other vitamin B12 deficiency anemia Frequent infections Hypogammaglobulinemia (HCC) Hypogammaglobulinaemia, unspecified Bilateral leg weakness Other musculoskeletal symptoms referable to limbs Discoid lupus erythematosus Lupus erythematosus documented in this encounter [facility] note* Diagnosis LPRD (laryngopharyngeal reflux disease) Other diseases of larynx Dry mouth Disturbance of salivary secretion Current smoker Tobacco use disorder Abnormal mouth sensation Other and unspecified diseases of the oral soft tissues documented in this encounter [facility] note* Diagnosis Nipple discharge- Primary Other sign and symptom in breast Other systemic lupus erythematosus with other organ involvement (HCC) On prednisone therapy Long-term use of Plaquenil 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-term (current) use of other medications [facility] Diagnosis Hidradenitis suppurativa- Primary Hidradenitis Other seborrheic dermatitis Lupus erythematosus tumidus (CMS/HCC) Rash and other nonspecific skin eruption Capillary angioma Nevus, non-neoplastic Neoplasm of uncertain behavior of skin documented in this encounter [facility]* Diagnosis Sinus tachycardia- Primary Other specified cardiac dysrhythmias Shortness of breath Paroxysmal supraventricular tachycardia (CMS-HCC) Paroxysmal supraventricular tachycardia Essential hypertension Unspecified essential hypertension Obstructive sleep apnea syndrome Obstructive sleep apnea (adult) (pediatric) Morbid obesity (Multi) Morbid obesity Current smoker documented in this encounter [facility] Work Phone: Evaluation note* Diagnosis Elevated sed rate- Primary Elevated sedimentation rate Megaloblastic anemia due to vitamin B12 deficiency Other vitamin B12 deficiency anemia Frequent infections Hypogammaglobulinemia (HCC) Hypogammaglobulinaemia, unspecified Bilateral leg weakness Other musculoskeletal symptoms referable to limbs Discoid lupus erythematosus Lupus erythematosus [facility] Diagnosis Systemic lupus erythematosus with other organ involvement (HCC)- Primary [facility] Diagnosis Vitamin B12 deficiency- Primary Other B-complex deficiencies Other iron deficiency anemia Hypogammaglobulinemia (HCC) Hypogammaglobulinaemia, unspecified [facility] Diagnosis Other systemic lupus erythematosus with other organ involvement (HCC) [facility] Diagnosis Thyroid nodule (CMS/HCC)- Primary Nontoxic uninodular goiter LPRD (laryngopharyngeal reflux disease) Acute laryngitis, without mention of obstruction [facility] Diagnosis Hypogammaglobulinemia (HCC)- Primary Hypogammaglobulinaemia, unspecified Vitamin B12 deficiency Other B-complex deficiencies Other iron deficiency anemia Megaloblastic anemia due to vitamin B12 deficiency Other vitamin B12 deficiency anemia [facility] Diagnosis Frequent infections- Primary Hypogammaglobulinemia (HCC) Hypogammaglobulinaemia, unspecified Bilateral leg weakness Other musculoskeletal symptoms referable to limbs Discoid lupus erythematosus Lupus erythematosus Elevated sed rate Elevated sedimentation rate Megaloblastic anemia due to vitamin B12 deficiency Other vitamin B12 deficiency anemia [facility] Diagnosis Other systemic lupus erythematosus with other organ involvement (HCC)- Primary [facility] Diagnosis Other systemic lupus erythematosus with other organ involvement (HCC) [facility] Diagnosis Systemic lupus erythematosus with other organ involvement (HCC)- Primary [facility]* Diagnosis Fibromyalgia- Primary Mylagia and myositis, unspecified Family history of disease of aorta Family history of cancer Family history of unspecified malignant neoplasm [facility]* Diagnosis Frequent infections- Primary Hypogammaglobulinemia (HCC) [...] vitamin D deficiency [facility]* Diagnosis Other systemic lupus erythematosus with other organ involvement (HCC)- Primary [facility]* Diagnosis Other systemic lupus erythematosus with other organ involvement (HCC)- Primary Elevated LFTs Other abnormal blood chemistry Anemia of chronic disease Anemia of other chronic disease Elevated sed rate Elevated sedimentation rate Elevated C-reactive protein (CRP) Vitamin B12 deficiency Other B-complex deficiencies Screening-pulmonary TB Screening examination for pulmonary tuberculosis Vitamin D deficiency Unspecified vitamin D deficiency [facility]* Diagnosis Other systemic lupus erythematosus with [...] both feet Long-term use of high-risk medication alf 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-term (current) use of steroids Bilateral hand pain Pain in limb Family history of Crohn's disease Family history of other digestive disorders 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 Bilateral wrist pain 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, forearm [facility]* Diagnosis Other systemic lupus erythematosus with other organ involvement (HCC)- Primary [facility]* Diagnosis Generalized articular hypermobility- Primary Other joint derangement, not elsewhere classified, multiple sites Chronic pain syndrome Discoid lupus erythematosus Lupus erythematosus Family history of pneumothorax in son Family history of other condition Family history of cancer Family history of unspecified malignant neoplasm Family history of mild aortic dilation in daughter Family history of other cardiovascular diseases [facility]* Diagnosis Elevated sed rate- Primary Elevated sedimentation rate Megaloblastic anemia due to vitamin B12 deficiency Other vitamin B12 deficiency anemia Frequent infections Hypogammaglobulinemia (HCC) Hypogammaglobulinaemia, unspecified Bilateral leg weakness Other musculoskeletal symptoms referable to limbs Discoid lupus erythematosus Lupus erythematosus documented [facility]* Diagnosis Other systemic lupus erythematosus with other organ involvement (HCC)- Primary documented [facility]* Diagnosis Hypogammaglobulinemia (HCC)- Primary Hypogammaglobulinaemia, unspecified documented [facility]* Diagnosis Hidradenitis suppurativa- Primary Hidradenitis Pain Generalized pain Acne vulgaris Other acne [facility]* Diagnosis Hypogammaglobulinemia (HCC)- Primary Hypogammaglobulinaemia, unspecified Vitamin B12 deficiency Other B-complex deficiencies Other iron deficiency anemia Malaise and fatigue Other malaise and fatigue Shortness of breath Other specified disorders of breast Pre-diabetes Other abnormal glucose Gastro-esophageal reflux disease without esophagitis Esophageal reflux documented [facility]* Diagnosis Elevated sed rate- Primary Elevated sedimentation rate Megaloblastic anemia due to vitamin B12 deficiency Other vitamin B12 deficiency anemia Frequent infections Hypogammaglobulinemia (HCC) Hypogammaglobulinaemia, unspecified Bilateral leg weakness Other musculoskeletal symptoms referable to limbs Discoid lupus erythematosus Lupus erythematosus documented [facility]* Diagnosis Other systemic lupus erythematosus with other organ involvement (HCC)- Primary documented [facility]* Diagnosis Other systemic lupus erythematosus with other organ involvement (HCC)- Primary Elevated LFTs Other abnormal blood chemistry Anemia of chronic disease Anemia of other chronic disease Elevated sed rate Elevated sedimentation rate Elevated C-reactive protein (CRP) Vitamin D deficiency Unspecified vitamin D deficiency Vitamin B12 deficiency Other B-complex deficiencies Screening-pulmonary TB Screening examination for pulmonary tuberculosis documented [facility]* Diagnosis Other systemic lupus erythematosus with other organ involvement (HCC)- Primary Elevated LFTs Other abnormal blood chemistry Anemia of chronic disease Anemia of other chronic disease Elevated C-reactive protein (CRP) Elevated sed rate Elevated sedimentation rate Vitamin D deficiency Unspecified vitamin D deficiency documented [facility]* Diagnosis Frequent infections- Primary Hypogammaglobulinemia (HCC) Hypogammaglobulinaemia, unspecified Bilateral leg weakness Other musculoskeletal symptoms referable to limbs Discoid lupus erythematosus Lupus erythematosus Elevated sed rate Elevated sedimentation rate Megaloblastic anemia due to vitamin B12 deficiency Other vitamin B12 deficiency anemia [facility]* Diagnosis Pilonidal cyst- Primary Hidradenitis suppurativa Hidradenitis documented [facility] - Reported* Type Description Date Medical History hyperlipidemia Medical History insulin resistance Medical History CMV Surgical History cyst removal pilonidal Surgical History D&C Hospitalization History [facility] Other Hospital Discharge instructionsAmbulatory Orders* Referral to Gastroenterology Location: [facility] Work Phone: InstructionsNot on filedocumented in this encounter [facility] (n[facility]ative)* Diagnostic Procedure Only (Routine) - Pending Review Specialty Diagnoses / Procedures Referred By Nahid tran Referred To Contact XR IMAGING Diagnoses Steroid-induced osteoporosis Procedures DXA-FOREARM SKELETON DXA BONE DENSITY STUDY 1/>SITES APPENDICLR Lynne Perera MD [address] [facility] [address] [id number] [id number] Referral ID Status Reason Start Date Expiration Date Visits Requested Visits Authorized [id number] Pending Review Auto-Generat ed Referral 02/04/2023 03/05/2024 1 1 [facility] for referral (narrative)* Consultation (Routine) - Authorized Specialty Diagnoses / Procedures Referred By Contac t Referred To Contact Cardiology Diagnoses Irregular heart rate Essential hypertension Autonomic dysfunction Obstructive sleep apnea syndrome Primary hypertension Procedures Follow Up In Cardiology Michelle Jasmine APRN-CNP [address] [facility] [address] [place] [address] Aurora Patel MD [address] [address] Referral ID Status Reason Start Date Expiration Date V isits Requested Visits Authorized [id number] Authorized 06/09/2023 06/08/2024 1 1 * Cardiovascular (Routine) - Pending Review Specialty Diagnoses / Procedures Referred By Contac t Referred To Contact Cardiology Diagnoses Irregular heart rate Procedures Holter Or 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 Michelle Jasmine APRN-[facility] [address] [facility] [address] [place] [address] Referral ID Status Reason Start Date Expiration Date V isits Requested Visits Authorized Pending Review 06/09/2023 06/08/2024 1 1 * CV Imaging (Routine) - Pending Review Specialty Diagnoses / Procedures [facility] Referred To Contact Cardiology Diagnoses Irregular heart rate Obstructive sleep apnea syndrome Procedures Transthoracic Echo (TTE) Complete [place] ECHO TTHRC R-T 2D W/WOM-MODE COMPL SPEC&COLR D Michelle Jasmine APRN-[facility] [address] [facility] [address] [place] [address] Referral ID Status Reason Start Date Expiration Date Visits Requested Visits Authorized Pending Review Perform Procedure 06/09/2023 06/08/2024 1 1 * Cardiovascular (Routine) - Authorized Specialty Diagnoses / Procedures [facility] Referred To Contact Diagnoses Irregular heart rate Procedures ECG 12 Lead [facility] [address] [facility] [address] [place] [address] Referral ID Status Reason Start Date Expiration Date V isits Requested Visits Authorized [id number] Authorized 06/09/2023 06/08/2024 1 1 [facility] Work Phone: Reason for referral (narrative)* Consultation (Routine) - Pending Review Specialty Diagnoses / Procedures Referred By Contac t Referred To Contact Pain Medicine Diagnoses Lumbosacral radiculopathy at L5 Degenerative disc disease, lumbar Procedures [place] OFFICE/OUTPATIENT [facility] 60 MINUTES Kade Richardson MD [address] [facility] [address] [place] [id number] Adolfo Kang MD [address] [address] Referral ID Status Reason Start Date Expiration Date Visits Requested Visits Authorized [id number] Pending Review Specialty Services Required 01/20/2024 07/18/2024 1 1 [facility]ative)No reason for referral [facility] Work Phone: Reason for visit Narrative* [place] Prior Authorization (Routine) - Authorized Specialty Diagnoses / Procedures Referred By Contac t Referred To Contact Diagnoses Frequent infections Hypogammaglobulinemia (HCC) Bilateral leg weakness Discoid lupus erythematosus Procedures GAMMAGARD LIQUID INJECTION Vera Najera MD [address] [place] [address] Phone: tel: fax: Hematology/Oncology [address] [place] [address] Phone: tel: fax: Referral ID Status Reason Start Date Expiration Date V isits Requested Visits Authorized [id number] Authorized 04/03/2024 10/01/2024 7 7 [facility] for visit Narrative* [place] Prior Authorization (Routine) - Authorized Specialty Diagnoses / Procedures Referred By Contac t Referred To Contact Diagnoses Other systemic lupus erythematosus with other organ involvement (HCC) Procedures BELIMUMAB INJECTION Lynne Ni MD [address] [place] [address] Phone: tel: fax: Lynne Ni MD [address] [place] [address] Phone: tel: fax: Referral ID Status Reason Start Date Expiration Date V isits Requested Visits Authorized [id number] Authorized 09/08/2024 03/10/2025 8 8 [facility] for visit Narrative* [place] Prior Authorization (Routine) - Authorized Specialty Diagnoses / Procedures Referred By Contac t Referred To Contact Diagnoses Other iron deficiency anemia Procedures IRON SUCROSE INJECTION PER 1 MG Vaibhav Carvalho APRN.SPEECH THERAPY DIRECTOR [address] [facility] [place] [address] Phone: tel: fax: Hematology/Oncology [address] [facility] [facility] [place] [address] Phone: tel: fax: Referral ID Status Reason Start Date Expiration Date V isits Requested Visits Authorized [id number] Authorized 06/16/2024 05/23/2025 99 99 [facility] for visit Narrative* [place] Prior Authorization (Routine) - Authorized Specialty Diagnoses / Procedures Referred By Contac t Referred To Contact Diagnoses Frequent infections Hypogammaglobulinemia (HCC) Bilateral leg weakness Discoid lupus erythematosus Procedures GAMMAGARD LIQUID INJECTION Vera Najera MD [address] [facility] [place] [place] [address] Phone: tel: fax: Hematology/Oncology [address] [facility] [place] [address] Phone: tel: fax: Referral ID Status Reason Start Date Expiration Date Visits Requested Visits Authorized [id number] Authorized Patient Cleared - Admin/Chairm an/Director advise to proceed or did not respond 10/30/2024 10/30/2025 19 19 [facility] for visit Narrative* [place] Prior Authorization (Routine) - Authorized Specialty Diagnoses / Procedures Referred By Contac t Referred To Contact Diagnoses Frequent infections Hypogammaglobulinemia (HCC) Bilateral leg weakness Discoid lupus erythematosus Procedures GAMMAGARD LIQUID INJECTION Vera Najera MD [address] [facility] [place] [address] Phone: tel: fax: Hematology/Oncology [address] [facility] [facility] [place] [address] Phone: tel: fax: Referral ID Status Reason Start Date Expiration Date Visits Requested Visits Authorized [id number] Authorized Patient Cleared - Admin/Chairm an/Director advise to proceed or did not respond 10/30/2024 10/30/2025 18 18 [facility] for visit Narrative* [place] Prior Authorization (Routine) - Authorized Specialty Diagnoses / Procedures Referred By Contac t Referred To Contact Diagnoses Frequent infections Hypogammaglobulinemia (HCC) Bilateral leg weakness Discoid lupus erythematosus Procedures GAMMAGARD LIQUID INJECTION IMMUNE GLOBULIN INJECTION Vera Najera MD [address] [facility] [place] [address] Phone: tel: fax: Hematology/Oncology [address] [facility] [facility] [place] [address] Phone: tel: fax: Referral ID Status Reason Start Date Expiration Date Visits Requested Visits Authorized [id number] Authorized Patient Cleared - Admin/Chairm an/Director advise to proceed or did not respond 10/30/2024 10/30/2025 19 19 [facility] Summary Purpose Family History No Family History Records Found Relationship Condition Age at Onset Recorded Date/T michelle father Unknown Malignant neoplasm Unknown Relationship Condition Age at Onset Recorded Date/T michelle father Malignant neoplasm of stomach Unknown Unknown mother Crohn's disease Unknown Advance Directives No Advanced Directives Records FoundDocuments on File Type Date Recorded Patient Director Surface Transportation Expl anation ACP-Advance Directive ACP-Power of Chemical Preparer Latest Code Status on File Code Status Date Activated Date Inactivated Comments Full Code 10/07/2020 8:32 AM Documents on File Type Date Recorded Patient Director Surface Transportation Expl anation Advance Directive(s) 09/13/2015 8:36 AM Advance Directive Response Recorded Date/ Time Advance Directives No September 17, 2:40pm Advance Directive Response Recorded Date/ Time Advance Directives No September 17 1:40pm Reason for Referral Specialty Diagnoses / Procedures Referred By Contac t Referred To Contact Infectious Diseases Diagnoses Positive blood cultures Procedures CONSULT TO INFECTIOUS DISEASES [facility]ICE[facility] 60 MINUTES Vaibhav Carvalho APRN.[address] [place] [address] Referral ID Status Reason Start Date Expiration Date Visits Requested Visits Authorized [id number] Authorized PCP Requested Referral 06/13/2024 06/13/2025 1 1 Specialty Diagnoses / Procedures Referred By Contac t Referred To Contact Diagnoses Paroxysmal supraventricular tachycardia PAC (premature atrial contraction) Procedures ECG 12 Lead Lois Holm MD [address] [place] [address] 2, [facility] [address] [place] [address] Referral ID Status Reason Start Date Expiration Date V isits Requested Visits Authorized [id number] Authorized 07/13/2023 07/12/2024 1 1 Specialty Diagnoses / Procedures Referred By Contac t Referred To Contact Cardiology Diagnoses Shortness of breath Paroxysmal supraventricular tachycardia PAC (premature atrial contraction) Procedures Follow Up In Cardiology Lois Holm MD [address] [place] [address] 2, [address] [place] [address] Lois Holm MD [address] [facility] 2, [address] [place] [address] Referral ID Status Reason Start Date Expiration Date V isits Requested Visits Authorized [id number] Authorized 07/13/2023 07/12/2024 1 1 Specialty Diagnoses / Procedures Referred By Contac t Referred To Contact Diagnoses Obesity, Class III, BMI 40-49.9 (morbid obesity) (HCC) Pre-diabetes Christie Phan MD [address] [place] [address] Referral ID Status Reason Start Date Expiration Date Visits Re quested Visits Authorized [id number] Closed 1 1 Specialty Diagnoses / Procedures Referred By Contac t Referred To Contact Diagnoses Wound healing, delayed Procedures CONSULT TO MEDICAL GENETICS - GENERAL OFFICE/OUTPATIENT [facility] 60-74 MINUTES MEDICAL GENETICS COUNSELING EACH 30 MINUTES Misty Nelson MD [facility]2 [place] [id number] [address] Referral ID Status Reason Start Date Expiration Date Visits Requested Visits Authorized [id number] Authorized PCP Requested Referral Auto-Generate d Referral 2 03/10/2023 1 1 Specialty Diagnoses / Procedures Referred By Contac t Referred To Contact Neurology Diagnoses POTS (postural orthostatic tachycardia syndrome) Procedures CONSULT TO NEUROLOGY OFFICE/OUTPATIENT [facility] 60-74 MINUTES Christie Phan MD [address] [place] [address] Referral ID Status Reason Start Date Expiration Date Visits Requested Visits Authorized [id number] Authorized PCP Requested Referral 2 03/12/2023 1 1 Specialty Diagnoses / Procedures Referred By Contac t Referred To Contact Immunology Diagnoses Raised level of immunoglobulins Procedures CONSULT TO IMMUNOLOGY OFFICE/OUTPATIENT [facility] 60-74 MINUTES Christie Phan MD [address] [place] [address] Referral ID Status Reason Start Date Expiration Date V isits Requested Visits Authorized [id number] Closed PCP Requested Referral 03/09/2022 03/09/2023 1 1 Specialty Diagnoses / Procedures Referred By Contac t Referred To Contact [facility] Diagnoses Somnolence, daytime Snoring Procedures HOME SLEEP APNEA TEST (HSAT) SLEEP STD AIRFLOW HRT RATE&O2 SAT EFFORT UNATT Christie Phan MD [address] [place], [place] [id number] [facility] [address] [place] [address] Referral ID Status Reason Start Date Expiration Date Visits Requested Visits Authorized [id number] Authorized Auto-Generat ed Referral 2 03/09/2023 1 1 Specialty Diagnoses / Procedures Referred By Contac t Referred To Contact Diagnoses Somnolence, daytime Chronic fatigue and malaise Obesity, unspecified classification, unspecified obesity type, unspecified whether serious comorbidity present Procedures CONSULT TO LIFESTYLE MEDICINE MD OFFICE/OUTPATIENT [facility] 60-74 MINUTES Vera Najera MD [address] [place] [address] [place] [address] Referral ID Status Reason Start Date Expiration Date V isits Requested Visits Authorized [id number] Closed PCP Requested Referral 03/04/2022 03/04/2023 1 1 Specialty Diagnoses / Procedures Referred By Contac t Referred To Contact Diagnoses Somnolence, daytime Snoring Procedures CONSULT TO SLEEP MEDICINE - ADULT OFFICE/OUTPATIENT [facility] 60-74 MINUTES Vera Najera MD [address] [place] [address] [place] [address] Referral ID Status Reason Start Date Expiration Date Visits Requested Visits Authorized [id number] Authorized PCP Requested Referral 2 03/04/2023 1 [...] 5am Chief Complaint Admit Date f/u after seleen lumbar MBB September 06 3:42pm reschedule procedure [...] section and content) DATE CREATED AUTHOR 09/20/2018 [facility] DATE CREATED AUTHOR AUTHOR'S ORGANIZ ATION 12/10/2018 [facility] DATE CREATED AUTHOR AUTHOR'S ORGANIZ ATION 01/13/2019 [facility] DATE CREATED AUTHOR AUTHOR'S ORGANIZ ATION 06/28/2021 [facility] DATE CREATED AUTHOR AUTHOR'S ORGANIZ ATION 10/01/2022 [facility] DATE CREATED AUTHOR AUTHOR'S ORGANIZ ATION 03/10/2024 [facility] DATE CREATED AUTHOR AUTHOR'S ORGANIZ ATION 07/22/2024 [facility] DATE CREATED AUTHOR AUTHOR'S ORGANIZ ATION 07/28/2024 [facility] DATE CREATED AUTHOR AUTHOR'S ORGANIZ ATION 02/07/2025 [facility] DATE CREATED AUTHOR AUTHOR'S ORGANIZ ATION 02/12/2025 [facility] DATE CREATED AUTHOR AUTHOR'S ORGANIZ ATION 02/16/2025 [facility] EPIC Reason for Visit (unrecogniz ed section and content) Reason Comments Infection Follow Up Specialty Diagnoses / Procedures Referred By Contac t Referred To Contact Infectious Diseases Diagnoses Positive blood cultures Procedures CONSULT TO INFECTIOUS DISEASES OFFICE/OUTPATIENT NEW HIGH MDM 60 MINUTES Vaibhav Carvalho APRN.SPEECH THERAPY DIRECTOR [address] [place] [address] Phone: tel: fax: Referral ID Status Reason Start Date Expiration Date V isits Requested Visits Authorized [id number] Closed PCP Requested Referral 06/13/2024 06/13/2025 1 1 Status Reason Specialty Diagnoses / Procedures Referre d By Contact Referred To Contact [employer] Reason Comments Pain ongoing generalized pain. Reason [...] MDM 60-74 MINUTES Vera Najera MD [address] [place] [address] Referral ID Status Reason Start Date Expiration Date V isits Requested Visits Authorized [id number] Closed PCP Requested Referral 03/04/2022 03/04/2023 1 1 Reason Comments High Total serum IgM Anemia Reason Comments Consult Specialty Diagnoses / Procedures Referred By Contac t Referred To Contact Immunology Diagnoses Raised level of immunoglobulins Procedures CONSULT TO IMMUNOLOGY OFFICE/OUTPATIENT NEW HIGH MDM 60-74 MINUTES Christie Phan MD [address] [place] [address] Referral ID Status Reason Start Date Expiration Date V isits Requested Visits Authorized [id number] Closed PCP Requested Referral 03/09/2022 03/09/2023 1 1 Reason Comments Pneumovax Reason Comments Refill Request Reason Comments 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 Reason Comments Future Appointment Scheduling [...] rate Procedures ECG 12 Lead Michelle Jasmine, WAREHOUSE DISTRIBUTION SPECIALIST-SPEECH THERAPY DIRECTOR [address] [facility] [address] [place] [address] Referral ID Status Reason Start Date Expiration Date V isits Requested Visits Authorized [id number] Authorized 06/09/2023 06/08/2024 1 1 Reason Comments New Patient Visit Leg Swelling, test r esults from [facility] Specialty Diagnoses / Procedures Referred By Contac t Referred To Contact Diagnoses Paroxysmal supraventricular tachycardia PAC (premature atrial contraction) Procedures ECG 12 Lead Lois Holm MD [address] [facility] 2, [address] [place] [address] Referral ID Status Reason Start Date Expiration Date V isits Requested Visits Authorized [id number] Authorized 07/13/2023 07/12/2024 1 1 Reason Onset [...] Reason Comments Orders PAP RX. 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 Eds scheduling Reason Comments Med [...] Procedures GAMMAGARD LIQUID INJECTION Vera Najera MD [address] [place] [address] [place] [address] [facility] [address] [place] [address] Referral ID Status Reason Start Date Expiration Date V isits Requested Visits Authorized [id number] Authorized 04/03/2024 10/01/2024 7 7 Reason Comments [...] of lower extremity, unspecified laterality Gay Enciso, WAREHOUSE DISTRIBUTION SPECIALIST-SPEECH THERAPY DIRECTOR [address] [place] [address] Phone: tel:[phone] fax: Hayden Arciniega MD [address] [place] [address] Phone: tel:[phone] fax: Referral ID Status Reason Start Date Expiration Date Visits Requested Visits Authorized [id number] Pending Review Specialty Services Required 03/15/2025 1 [...] Follow Up In Cardiology Lois Holm MD [address] [place] [address], [address] [address] Phone: tel: fax: Lois Holm MD [address] [place] [address] 2, [address] [address] Phone: tel: fax: Referral ID Status Reason Start Date Expiration Date V isits Requested Visits Authorized [id number] Authorized 07/13/2023 07/12/2024 1 1 Reason Comments Med Change Request Reason Comments Patient Question Reason Onset Date Comments SPP Inflammatory Conditions - Medication Refill 08/17/2024 Benlysta Reason Onset Date Comments Refill Request 09/01/2024 Reason Comments Thyroid Nodule Follow up ultrasound [facility] 08/24/24 Reason Comments Megaloblastic anemia due [...] Procedures EST PATIENT Self Ny Beebe MD [address] [place] [address] Phone: tel: fax: Referral ID Status Reason Start Date Expiration Date V isits Requested Visits Authorized [id number] Pending Review 09/19/2024 12/18/2024 1 1 Reason [...] prosecute any alcohol or drug abuse patient.[facility] the event this information is protected by the Federal Confidentiality of Alcohol and Drug Abuse Patient Records regulations: The Federal rules restrict any use of the information to criminally investigate or prosecute any alcohol or drug abuse patient.[facility] SystemIn the event this information is protected by the Federal Confidentiality of Alcohol and Drug Abuse Patient Records regulations: The Federal rules restrict any use of the information to criminally investigate or prosecute any alcohol or drug abuse patient.[facility] SystemIn the event this information is protected by the Federal Confidentiality of Alcohol and Drug Abuse Patient Records regulations: The Federal rules restrict any use of the information to criminally investigate or prosecute any alcohol or drug abuse patient.[facility] SystemIn the event this information is protected by the Federal Confidentiality of Alcohol and Drug Abuse Patient Records regulations: The Federal rules restrict any use of the information to criminally investigate or prosecute any alcohol or drug abuse patient.[facility] SystemIn the event this information is protected by the Federal Confidentiality of Alcohol and Drug Abuse Patient Records regulations: The Federal rules restrict any use of the information to criminally investigate or prosecute any alcohol or drug abuse patient.[facility] SystemIn the event this information is protected by the Federal Confidentiality of Alcohol and Drug Abuse Patient Records regulations: The Federal rules restrict any use of the information to criminally investigate or prosecute any alcohol or drug abuse patient.[facility] SystemIn the event this information is protected by the Federal Confidentiality of Alcohol and Drug Abuse Patient Records regulations: The Federal rules restrict any use of the information to criminally investigate or prosecute any alcohol or drug abuse patient.[facility] SystemIn the event this information is protected by the Federal Confidentiality of Alcohol and Drug Abuse Patient Records regulations: The Federal rules restrict any use of the information to criminally investigate or prosecute any alcohol or drug abuse patient.[facility] SystemIn the event this information is protected by the Federal Confidentiality of Alcohol and Drug Abuse Patient Records regulations: The Federal rules restrict any use of the information to criminally investigate or prosecute any alcohol or drug abuse patient.[facility] SystemIn the event this information is protected by the Federal Confidentiality of Alcohol and Drug Abuse Patient Records regulations: The Federal rules restrict any use of the information to criminally investigate or prosecute any alcohol or drug abuse patient.[facility] SystemIn the event this information is protected by the Federal Confidentiality of Alcohol and Drug Abuse Patient Records regulations: The Federal rules restrict any use of the information to criminally investigate or prosecute any alcohol or drug abuse patient.[facility] SystemIn the event this information is protected by the Federal Confidentiality of Alcohol and Drug Abuse Patient Records regulations: The Federal rules restrict any use of the information to criminally investigate or prosecute any alcohol or drug abuse patient.[facility] SystemIn the event this information is protected by the Federal Confidentiality of Alcohol and Drug Abuse Patient Records regulations: The Federal rules restrict any use of the information to criminally investigate or prosecute any alcohol or drug abuse patient.[facility] SystemIn the event this information is protected by the Federal Confidentiality of Alcohol and Drug Abuse Patient Records regulations: The Federal rules restrict any use of the information to criminally investigate or prosecute any alcohol or drug abuse patient.[facility] SystemIn the event this information is protected by the Federal Confidentiality of Alcohol and Drug Abuse Patient Records regulations: The Federal rules restrict any use of the information to criminally investigate or prosecute any alcohol or drug abuse patient.[facility] SystemIn the event this information is protected by the Federal Confidentiality of Alcohol and Drug Abuse Patient Records regulations: The Federal rules restrict any use of the information to criminally investigate or prosecute any alcohol or drug abuse patient.[facility] SystemIn the event this information is protected by the Federal Confidentiality of Alcohol and Drug Abuse Patient Records regulations: The Federal rules restrict any use of the information to criminally investigate or prosecute any alcohol or drug abuse patient.[facility] SystemIn the event this information is protected by the Federal Confidentiality of Alcohol and Drug Abuse Patient Records regulations: The Federal rules restrict any use of the information to criminally investigate or prosecute any alcohol or drug abuse patient.[facility] SystemIn the event this information is protected by the Federal Confidentiality of Alcohol and Drug Abuse Patient Records regulations: The Federal rules restrict any use of the information to criminally investigate or prosecute any alcohol or drug abuse patient.[facility] SystemIn the event this information is protected by the Federal Confidentiality of Alcohol and Drug Abuse Patient Records regulations: The Federal rules restrict any use of the information to criminally investigate or prosecute any alcohol or drug abuse patient.[facility] SystemIn the event this information is protected by the Federal Confidentiality of Alcohol and Drug Abuse Patient Records regulations: The Federal rules restrict any use of the information to criminally investigate or prosecute any alcohol or drug abuse patient.[facility] SystemIn the event this information is protected by the Federal Confidentiality of Alcohol and Drug Abuse Patient Records regulations: The Federal rules restrict any use of the information to criminally investigate or prosecute any alcohol or drug abuse patient.[facility] SystemIn the event this information is protected by the Federal Confidentiality of Alcohol and Drug Abuse Patient Records regulations: The Federal rules restrict any use of the information to criminally investigate or prosecute any alcohol or drug abuse patient.[facility] SystemIn the event this information is protected by the Federal Confidentiality of Alcohol and Drug Abuse Patient Records regulations: The Federal rules restrict any use of the information to criminally investigate or prosecute any alcohol or drug abuse patient.[facility] SystemIn the event this information is protected by the Federal Confidentiality of Alcohol and Drug Abuse Patient Records regulations: The Federal rules restrict any use of the information to criminally investigate or prosecute any alcohol or drug abuse patient.[facility] SystemIn the event this information is protected by the Federal Confidentiality of Alcohol and Drug Abuse Patient Records regulations: The Federal rules restrict any use of the information to criminally investigate or prosecute any alcohol or drug abuse patient.[facility] SystemIn the event this information is protected by the Federal Confidentiality of Alcohol and Drug Abuse Patient Records regulations: The Federal rules restrict any use of the information to criminally investigate or prosecute any alcohol or drug abuse patient.[facility] SystemIn the event this information is protected by the Federal Confidentiality of Alcohol and Drug Abuse Patient Records regulations: The Federal rules restrict any use of the information to criminally investigate or prosecute any alcohol or drug abuse patient.[facility] SystemIn the event this information is protected by the Federal Confidentiality of Alcohol and Drug Abuse Patient Records regulations: The Federal rules restrict any use of the information to criminally investigate or prosecute any alcohol or drug abuse patient.[facility] SystemIn the event this information is protected by the Federal Confidentiality of Alcohol and Drug Abuse Patient Records regulations: The Federal rules restrict any use of the information to criminally investigate or prosecute any alcohol or drug abuse patient.[facility] SystemIn the event this information is protected by the Federal Confidentiality of Alcohol and Drug Abuse Patient Records regulations: The Federal rules restrict any use of the information to criminally investigate or prosecute any alcohol or drug abuse patient.[facility] SystemIn the event this information is protected by the Federal Confidentiality of Alcohol and Drug Abuse Patient Records regulations: The Federal rules restrict any use of the information to criminally investigate or prosecute any alcohol or drug abuse patient.[facility] SystemIn the event this information is protected by the Federal Confidentiality of Alcohol and Drug Abuse Patient Records regulations: The Federal rules restrict any use of the information to criminally investigate or prosecute any alcohol or drug abuse patient.[facility] SystemIn the event this information is protected by the Federal Confidentiality of Alcohol and Drug Abuse Patient Records regulations: The Federal rules restrict any use of the information to criminally investigate or prosecute any alcohol or drug abuse patient.[facility] SystemIn the event this information is protected by the Federal Confidentiality of Alcohol and Drug Abuse Patient Records regulations: The Federal rules restrict any use of the information to criminally investigate or prosecute any alcohol or drug abuse patient.[facility] SystemIn the event this information is protected by the Federal Confidentiality of Alcohol and Drug Abuse Patient Records regulations: The Federal rules restrict any use of the information to criminally investigate or prosecute any alcohol or drug abuse patient.[facility] the event this information is protected by the Federal Confidentiality of Alcohol and Drug Abuse Patient Records regulations: The Federal rules restrict any use of the information to criminally investigate or prosecute any alcohol or drug abuse patient.[facility] SystemIn the event this information is protected by the Federal Confidentiality of Alcohol and Drug Abuse Patient Records regulations: The Federal rules restrict any use of the information to criminally investigate or prosecute any alcohol or drug abuse patient.[facility] SystemIn the event this information is protected by the Federal Confidentiality of Alcohol and Drug Abuse Patient Records regulations: The Federal rules restrict any use of the information to criminally investigate or prosecute any alcohol or drug abuse patient.[facility] SystemIn the event this information is protected by the Federal Confidentiality of Alcohol and Drug Abuse Patient Records regulations: The Federal rules restrict any use of the information to criminally investigate or prosecute any alcohol or drug abuse patient.[facility] SystemIn the event this information is protected by the Federal Confidentiality of Alcohol and Drug Abuse Patient Records regulations: The Federal rules restrict any use of the information to criminally investigate or prosecute any alcohol or drug abuse patient.[facility] SystemIn the event this information is protected by the Federal Confidentiality of Alcohol and Drug Abuse Patient Records regulations: The Federal rules restrict any use of the information to criminally investigate or prosecute any alcohol or drug abuse patient.[facility] SystemIn the event this information is protected by the Federal Confidentiality of Alcohol and Drug Abuse Patient Records regulations: The Federal rules restrict any use of the information to criminally investigate or prosecute any alcohol or drug abuse patient.[facility] SystemIn the event this information is protected by the Federal Confidentiality of Alcohol and Drug Abuse Patient Records regulations: The Federal rules restrict any use of the information to criminally investigate or prosecute any alcohol or drug abuse patient.[facility] SystemIn the event this information is protected by the Federal Confidentiality of Alcohol and Drug Abuse Patient Records regulations: The Federal rules restrict any use of the information to criminally investigate or prosecute any alcohol or drug abuse patient.[facility] SystemIn the event this information is protected by the Federal Confidentiality of Alcohol and Drug Abuse Patient Records regulations: The Federal rules restrict any use of the information to criminally investigate or prosecute any alcohol or drug abuse patient.[facility] SystemIn the event this information is protected by the Federal Confidentiality of Alcohol and Drug Abuse Patient Records regulations: The Federal rules restrict any use of the information to criminally investigate or prosecute any alcohol or drug abuse patient.[facility] SystemIn the event this information is protected by the Federal Confidentiality of Alcohol and Drug Abuse Patient Records regulations: The Federal rules restrict any use of the information to criminally investigate or prosecute any alcohol or drug abuse patient.[facility] SystemIn the event this information is protected by the Federal Confidentiality of Alcohol and Drug Abuse Patient Records regulations: The Federal rules restrict any use of the information to criminally investigate or prosecute any alcohol or drug abuse patient.[facility] SystemIn the event this information is protected by the Federal Confidentiality of Alcohol and Drug Abuse Patient Records regulations: The Federal rules restrict any use of the information to criminally investigate or prosecute any alcohol or drug abuse patient.[facility] SystemIn the event this information is protected by the Federal Confidentiality of Alcohol and Drug Abuse Patient Records regulations: The Federal rules restrict any use of the information to criminally investigate or prosecute any alcohol or drug abuse patient.[facility] SystemIn the event this information is protected by the Federal Confidentiality of Alcohol and Drug Abuse Patient Records regulations: The Federal rules restrict any use of the information to criminally investigate or prosecute any alcohol or drug abuse patient.[facility] SystemIn the event this information is protected by the Federal Confidentiality of Alcohol and Drug Abuse Patient Records regulations: The Federal rules restrict any use of the information to criminally investigate or prosecute any alcohol or drug abuse patient.[facility] the event this information is protected by the Federal Confidentiality of Alcohol and Drug Abuse Patient Records regulations: The Federal rules restrict any use of the information to criminally investigate or prosecute any alcohol or drug abuse patient.[facility]In the event this information is protected by the Federal Confidentiality of Alcohol and Drug Abuse Patient Records regulations: The Federal rules restrict any use of the information to criminally investigate or prosecute any alcohol or drug abuse patient.[facility]In the event this information is protected by the Federal Confidentiality of Alcohol and Drug Abuse Patient Records regulations: The Federal rules restrict any use of the information to criminally investigate or prosecute any alcohol or drug abuse patient.[facility]In the event this information is protected by the Federal Confidentiality of Alcohol and Drug Abuse Patient Records regulations: The Federal rules restrict any use of the information to criminally investigate or prosecute any alcohol or drug abuse patient.[facility]In the event this information is protected by the Federal Confidentiality of Alcohol and Drug Abuse Patient Records regulations: The Federal rules restrict any use of the information to criminally investigate or prosecute any alcohol or drug abuse patient.[facility]In the event this information is protected by the Federal Confidentiality of Alcohol and Drug Abuse Patient Records regulations: The Federal rules restrict any use of the information to criminally investigate or prosecute any alcohol or drug abuse patient.[facility]In the event this information is protected by the Federal Confidentiality of Alcohol and Drug Abuse Patient Records regulations: The Federal rules restrict any use of the information to criminally investigate or prosecute any alcohol or drug abuse patient.[facility]In the event this information is protected by the Federal Confidentiality of Alcohol and Drug Abuse Patient Records regulations: The Federal rules restrict any use of the information to criminally investigate or prosecute any alcohol or drug abuse patient.[facility]In the event this information is protected by the Federal Confidentiality of Alcohol and Drug Abuse Patient Records regulations: The Federal rules restrict any use of the information to criminally investigate or prosecute any alcohol or drug abuse patient.[facility]In the event this information is protected by the Federal Confidentiality of Alcohol and Drug Abuse Patient Records regulations: The Federal rules restrict any use of the information to criminally investigate or prosecute any alcohol or drug abuse patient.[facility]In the event this information is protected by the Federal Confidentiality of Alcohol and Drug Abuse Patient Records regulations: The Federal rules restrict any use of the information to criminally investigate or prosecute any alcohol or drug abuse patient.[facility]In the event this information is protected by the Federal Confidentiality of Alcohol and Drug Abuse Patient Records regulations: The Federal rules restrict any use of the information to criminally investigate or prosecute any alcohol or drug abuse patient.[facility]In the event this information is protected by the Federal Confidentiality of Alcohol and Drug Abuse Patient Records regulations: The Federal rules restrict any use of the information to criminally investigate or prosecute any alcohol or drug abuse patient.[facility]In the event this information is protected by the Federal Confidentiality of Alcohol and Drug Abuse Patient Records regulations: The Federal rules restrict any use of the information to criminally investigate or prosecute any alcohol or drug abuse patient.[facility]In the event this information is protected by the Federal Confidentiality of Alcohol and Drug Abuse Patient Records regulations: The Federal rules restrict any use of the information to criminally investigate or prosecute any alcohol or drug abuse patient.[facility]In the event this information is protected by the Federal Confidentiality of Alcohol and Drug Abuse Patient Records regulations: The Federal rules restrict any use of the information to criminally investigate or prosecute any alcohol or drug abuse patient.[facility]In the event this information is protected by the Federal Confidentiality of Alcohol and Drug Abuse Patient Records regulations: The Federal rules restrict any use of the information to criminally investigate or prosecute any alcohol or drug abuse patient.[facility]In the event this information is protected by the Federal Confidentiality of Alcohol and Drug Abuse Patient Records regulations: The Federal rules restrict any use of the information to criminally investigate or prosecute any alcohol or drug abuse patient.[facility]In the event this information is protected by the Federal Confidentiality of Alcohol and Drug Abuse Patient Records regulations: The Federal rules restrict any use of the information to criminally investigate or prosecute any alcohol or drug abuse patient.[facility]In the event this information is protected by the Federal Confidentiality of Alcohol and Drug Abuse Patient Records regulations: The Federal rules restrict any use of the information to criminally investigate or prosecute any alcohol or drug abuse patient.[facility]In the event this information is protected by the Federal Confidentiality of Alcohol and Drug Abuse Patient Records regulations: The Federal rules restrict any use of the information to criminally investigate or prosecute any alcohol or drug abuse patient.[facility]In the event this information is protected by the Federal Confidentiality of Alcohol and Drug Abuse Patient Records regulations: The Federal rules restrict any use of the information to criminally investigate or prosecute any alcohol or drug abuse patient.[facility]In the event this information is protected by the Federal Confidentiality of Alcohol and Drug Abuse Patient Records regulations: The Federal rules restrict any use of the information to criminally investigate or prosecute any alcohol or drug abuse patient.[facility]In the event this information is protected by the Federal Confidentiality of Alcohol and Drug Abuse Patient Records regulations: The Federal rules restrict any use of the information to criminally investigate or prosecute any alcohol or drug abuse patient.[facility]In the event this information is protected by the Federal Confidentiality of Alcohol and Drug Abuse Patient Records regulations: The Federal rules restrict any use of the information to criminally investigate or prosecute any alcohol or drug abuse patient.[facility]In the event this information is protected by the Federal Confidentiality of Alcohol and Drug Abuse Patient Records regulations: The Federal rules restrict any use of the information to criminally investigate or prosecute any alcohol or drug abuse patient.[facility]In the event this information is protected by the Federal Confidentiality of Alcohol and Drug Abuse Patient Records regulations: The Federal rules restrict any use of the information to criminally investigate or prosecute any alcohol or drug abuse patient.[facility]In the event this information is protected by the Federal Confidentiality of Alcohol and Drug Abuse Patient Records regulations: The Federal rules restrict any use of the information to criminally investigate or prosecute any alcohol or drug abuse patient.[facility]In the event this information is protected by the Federal Confidentiality of Alcohol and Drug Abuse Patient Records regulations: The Federal rules restrict any use of the information to criminally investigate or prosecute any alcohol or drug abuse patient.[facility]In the event this information is protected by the Federal Confidentiality of Alcohol and Drug Abuse Patient Records regulations: The Federal rules restrict any use of the information to criminally investigate or prosecute any alcohol or drug abuse patient.[facility]In the event this information is protected by the Federal Confidentiality of Alcohol and Drug Abuse Patient Records regulations: The Federal rules restrict any use of the information to criminally investigate or prosecute any alcohol or drug abuse patient.[facility]In the event this information is protected by the Federal Confidentiality of Alcohol and Drug Abuse Patient Records regulations: The Federal rules restrict any use of the information to criminally investigate or prosecute any alcohol or drug abuse patient.[facility]In the event this information is protected by the Federal Confidentiality of Alcohol and Drug Abuse Patient Records regulations: The Federal rules restrict any use of the information to criminally investigate or prosecute any alcohol or drug abuse patient.[facility] the event this information is protected by the Federal Confidentiality of Alcohol and Drug Abuse Patient Records regulations: The Federal rules restrict any use of the information to criminally investigate or prosecute any alcohol or drug abuse patient.[facility]In the event this information is protected by the Federal Confidentiality of Alcohol and Drug Abuse Patient Records regulations: The Federal rules restrict any use of the information to criminally investigate or prosecute any alcohol or drug abuse patient.[facility]In the event this information is protected by the Federal Confidentiality of Alcohol and Drug Abuse Patient Records regulations: The Federal rules restrict any use of the information to criminally investigate or prosecute any alcohol or drug abuse patient.[facility]In the event this information is protected by the Federal Confidentiality of Alcohol and Drug Abuse Patient Records regulations: The Federal rules restrict any use of the information to criminally investigate or prosecute any alcohol or drug abuse patient.[facility]In the event this information is protected by the Federal Confidentiality of Alcohol and Drug Abuse Patient Records regulations: The Federal rules restrict any use of the information to criminally investigate or prosecute any alcohol or drug abuse patient.[facility]In the event this information is protected by the Federal Confidentiality of Alcohol and Drug Abuse Patient Records regulations: The Federal rules restrict any use of the information to criminally investigate or prosecute any alcohol or drug abuse patient.[facility]In the event this information is protected by the Federal Confidentiality of Alcohol and Drug Abuse Patient Records regulations: The Federal rules restrict any use of the information to criminally investigate or prosecute any alcohol or drug abuse patient.[facility]In the event this information is protected by the Federal Confidentiality of Alcohol and Drug Abuse Patient Records regulations: The Federal rules restrict any use of the information to criminally investigate or prosecute any alcohol or drug abuse patient.[facility]In the event this information is protected by the Federal Confidentiality of Alcohol and Drug Abuse Patient Records regulations: The Federal rules restrict any use of the information to criminally investigate or prosecute any alcohol or drug abuse patient.[facility]In the event this information is protected by the Federal Confidentiality of Alcohol and Drug Abuse Patient Records regulations: The Federal rules restrict any use of the information to criminally investigate or prosecute any alcohol or drug abuse patient.[facility]In the event this information is protected by the Federal Confidentiality of Alcohol and Drug Abuse Patient Records regulations: The Federal rules restrict any use of the information to criminally investigate or prosecute any alcohol or drug abuse patient.[facility]In the event this information is protected by the Federal Confidentiality of Alcohol and Drug Abuse Patient Records regulations: The Federal rules restrict any use of the information to criminally investigate or prosecute any alcohol or drug abuse patient.[facility]In the event this information is protected by the Federal Confidentiality of Alcohol and Drug Abuse Patient Records regulations: The Federal rules restrict any use of the information to criminally investigate or prosecute any alcohol or drug abuse patient.[facility]In the event this information is protected by the Federal Confidentiality of Alcohol and Drug Abuse Patient Records regulations: The Federal rules restrict any use of the information to criminally investigate or prosecute any alcohol or drug abuse patient.[facility]In the event this information is protected by the Federal Confidentiality of Alcohol and Drug Abuse Patient Records regulations: The Federal rules restrict any use of the information to criminally investigate or prosecute any alcohol or drug abuse patient.[facility]In the event this information is protected by the Federal Confidentiality of Alcohol and Drug Abuse Patient Records regulations: The Federal rules restrict any use of the information to criminally investigate or prosecute any alcohol or drug abuse patient.[facility]In the event this information is protected by the Federal Confidentiality of Alcohol and Drug Abuse Patient Records regulations: The Federal rules restrict any use of the information to criminally investigate or prosecute any alcohol or drug abuse patient.[facility]In the event this information is protected by the Federal Confidentiality of Alcohol and Drug Abuse Patient Records regulations: The Federal rules restrict any use of the information to criminally investigate or prosecute any alcohol or drug abuse patient.[facility]In the event this information is protected by the Federal Confidentiality of Alcohol and Drug Abuse Patient Records regulations: The Federal rules restrict any use of the information to criminally investigate or prosecute any alcohol or drug abuse patient.[facility]In the event this information is protected by the Federal Confidentiality of Alcohol and Drug Abuse Patient Records regulations: The Federal rules restrict any use of the information to criminally investigate or prosecute any alcohol or drug abuse patient.[facility]In the event this information is protected by the Federal Confidentiality of Alcohol and Drug Abuse Patient Records regulations: The Federal rules restrict any use of the information to criminally investigate or prosecute any alcohol or drug abuse patient.[facility]In the event this information is protected by the Federal Confidentiality of Alcohol and Drug Abuse Patient Records regulations: The Federal rules restrict any use of the information to criminally investigate or prosecute any alcohol or drug abuse patient.[facility]In the event this information is protected by the Federal Confidentiality of Alcohol and Drug Abuse Patient Records regulations: The Federal rules restrict any use of the information to criminally investigate or prosecute any alcohol or drug abuse patient.[facility]In the event this information is protected by the Federal Confidentiality of Alcohol and Drug Abuse Patient Records regulations: The Federal rules restrict any use of the information to criminally investigate or prosecute any alcohol or drug abuse patient.[facility]In the event this information is protected by the Federal Confidentiality of Alcohol and Drug Abuse Patient Records regulations: The Federal rules restrict any use of the information to criminally investigate or prosecute any alcohol or drug abuse patient.[facility]In the event this information is protected by the Federal Confidentiality of Alcohol and Drug Abuse Patient Records regulations: The Federal rules restrict any use of the information to criminally investigate or prosecute any alcohol or drug abuse patient.[facility]In the event this information is protected by the Federal Confidentiality of Alcohol and Drug Abuse Patient Records regulations: The Federal rules restrict any use of the information to criminally investigate or prosecute any alcohol or drug abuse patient.[facility]In the event this information is protected by the Federal Confidentiality of Alcohol and Drug Abuse Patient Records regulations: The Federal rules restrict any use of the information to criminally investigate or prosecute any alcohol or drug abuse patient.[facility]In the event this information is protected by the Federal Confidentiality of Alcohol and Drug Abuse Patient Records regulations: The Federal rules restrict any use of the information to criminally investigate or prosecute any alcohol or drug abuse patient.[facility]In the event this information is protected by the Federal Confidentiality of Alcohol and Drug Abuse Patient Records regulations: The Federal rules restrict any use of the information to criminally investigate or prosecute any alcohol or drug abuse patient.[facility]In the event this information is protected by the Federal Confidentiality of Alcohol and Drug Abuse Patient Records regulations: The Federal rules restrict any use of the information to criminally investigate or prosecute any alcohol or drug abuse patient.[facility]In the event this information is protected by the Federal Confidentiality of Alcohol and Drug Abuse Patient Records regulations: The Federal rules restrict any use of the information to criminally investigate or prosecute any alcohol or drug abuse patient.[facility]In the event this information is protected by the Federal Confidentiality of Alcohol and Drug Abuse Patient Records regulations: The Federal rules restrict any use of the information to criminally investigate or prosecute any alcohol or drug abuse patient.[facility]In the event this information is protected by the Federal Confidentiality of Alcohol and Drug Abuse Patient Records regulations: The Federal rules restrict any use of the information to criminally investigate or prosecute any alcohol or drug abuse patient.[facility]In the event this information is protected by the Federal Confidentiality of Alcohol and Drug Abuse Patient Records regulations: The Federal rules restrict any use of the information to criminally investigate or prosecute any alcohol or drug abuse patient.[facility]In the event this information is protected by the Federal Confidentiality of Alcohol and Drug Abuse Patient Records regulations: The Federal rules restrict any use of the information to criminally investigate or prosecute any alcohol or drug abuse patient.[facility]In the event this information is protected by the Federal Confidentiality of Alcohol and Drug Abuse Patient Records regulations: The Federal rules restrict any use of the information to criminally investigate or prosecute any alcohol or drug abuse patient.[facility]In the event this information is protected by the Federal Confidentiality of Alcohol and Drug Abuse Patient Records regulations: The Federal rules restrict any use of the information to criminally investigate or prosecute any alcohol or drug abuse patient.[facility]In the event this information is protected by the Federal Confidentiality of Alcohol and Drug Abuse Patient Records regulations: The Federal rules restrict any use of the information to criminally investigate or prosecute any alcohol or drug abuse patient.[facility]In the event this information is protected by the Federal Confidentiality of Alcohol and Drug Abuse Patient Records regulations: The Federal rules restrict any use of the information to criminally investigate or prosecute any alcohol or drug abuse patient.[facility]In the event this information is protected by the Federal Confidentiality of Alcohol and Drug Abuse Patient Records regulations: The Federal rules restrict any use of the information to criminally investigate or prosecute any alcohol or drug abuse patient.[facility]In the event this information is protected by the Federal Confidentiality of Alcohol and Drug Abuse Patient Records regulations: The Federal rules restrict any use of the information to criminally investigate or prosecute any alcohol or drug abuse patient.[facility]In the event this information is protected by the Federal Confidentiality of Alcohol and Drug Abuse Patient Records regulations: The Federal rules restrict any use of the information to criminally investigate or prosecute any alcohol or drug abuse patient.[facility]In the event this information is protected by the Federal Confidentiality of Alcohol and Drug Abuse Patient Records regulations: The Federal rules restrict any use of the information to criminally investigate or prosecute any alcohol or drug abuse patient.[facility]In the event this information is protected by the Federal Confidentiality of Alcohol and Drug Abuse Patient Records regulations: The Federal rules restrict any use of the information to criminally investigate or prosecute any alcohol or drug abuse patient.[facility]In the event this information is protected by the Federal Confidentiality of Alcohol and Drug Abuse Patient Records regulations: The Federal rules restrict any use of the information to criminally investigate or prosecute any alcohol or drug abuse patient.[facility]In the event this information is protected by the Federal Confidentiality of Alcohol and Drug Abuse Patient Records regulations: The Federal rules restrict any use of the information to criminally investigate or prosecute any alcohol or drug abuse patient.[facility]In the event this information is protected by the Federal Confidentiality of Alcohol and Drug Abuse Patient Records regulations: The Federal rules restrict any use of the information to criminally investigate or prosecute any alcohol or drug abuse patient.[facility]In the event this information is protected by the Federal Confidentiality of Alcohol and Drug Abuse Patient Records regulations: The Federal rules restrict any use of the information to criminally investigate or prosecute any alcohol or drug abuse patient.[facility]In the event this information is protected by the Federal Confidentiality of Alcohol and Drug Abuse Patient Records regulations: The Federal rules restrict any use of the information to criminally investigate or prosecute any alcohol or drug abuse patient.[facility] the event this information is protected by the Federal Confidentiality of Alcohol and Drug Abuse Patient Records regulations: The Federal rules restrict any use of the information to criminally investigate or prosecute any alcohol or drug abuse patient.[facility]In the event this information is protected by the Federal Confidentiality of Alcohol and Drug Abuse Patient Records regulations: The Federal rules restrict any use of the information to criminally investigate or prosecute any alcohol or drug abuse patient.[facility] SystemIn the event this information is protected by the Federal Confidentiality of Alcohol and Drug Abuse Patient Records regulations: The Federal rules restrict any use of the information to criminally investigate or prosecute any alcohol or drug abuse patient.[facility] SystemIn the event this information is protected by the Federal Confidentiality of Alcohol and Drug Abuse Patient Records regulations: The Federal rules restrict any use of the information to criminally investigate or prosecute any alcohol or drug abuse patient.[facility] SystemIn the event this information is protected by the Federal Confidentiality of Alcohol and Drug Abuse Patient Records regulations: The Federal rules restrict any use of the information to criminally investigate or prosecute any alcohol or drug abuse patient.[facility] SystemIn the event this information is protected by the Federal Confidentiality of Alcohol and Drug Abuse Patient Records regulations: The Federal rules restrict any use of the information to criminally investigate or prosecute any alcohol or drug abuse patient.[facility] SystemIn the event this information is protected by the Federal Confidentiality of Alcohol and Drug Abuse Patient Records regulations: The Federal rules restrict any use of the information to criminally investigate or prosecute any alcohol or drug abuse patient.[facility] SystemIn the event this information is protected by the Federal Confidentiality of Alcohol and Drug Abuse Patient Records regulations: The Federal rules restrict any use of the information to criminally investigate or prosecute any alcohol or drug abuse patient.[facility] SystemIn the event this information is protected by the Federal Confidentiality of Alcohol and Drug Abuse Patient Records regulations: The Federal rules restrict any use of the information to criminally investigate or prosecute any alcohol or drug abuse patient.[facility] SystemIn the event this information is protected by the Federal Confidentiality of Alcohol and Drug Abuse Patient Records regulations: The Federal rules restrict any use of the information to criminally investigate or prosecute any alcohol or drug abuse patient.[facility] SystemIn the event this information is protected by the Federal Confidentiality of Alcohol and Drug Abuse Patient Records regulations: The Federal rules restrict any use of the information to criminally investigate or prosecute any alcohol or drug abuse patient.[facility] SystemIn the event this information is protected by the Federal Confidentiality of Alcohol and Drug Abuse Patient Records regulations: The Federal rules restrict any use of the information to criminally investigate or prosecute any alcohol or drug abuse patient.[facility] SystemIn the event this information is protected by the Federal Confidentiality of Alcohol and Drug Abuse Patient Records regulations: The Federal rules restrict any use of the information to criminally investigate or prosecute any alcohol or drug abuse patient.[facility] SystemIn the event this information is protected by the Federal Confidentiality of Alcohol and Drug Abuse Patient Records regulations: The Federal rules restrict any use of the information to criminally investigate or prosecute any alcohol or drug abuse patient.[facility] SystemIn the event this information is protected by the Federal Confidentiality of Alcohol and Drug Abuse Patient Records regulations: The Federal rules restrict any use of the information to criminally investigate or prosecute any alcohol or drug abuse patient.[facility] SystemIn the event this information is protected by the Federal Confidentiality of Alcohol and Drug Abuse Patient Records regulations: The Federal rules restrict any use of the information to criminally investigate or prosecute any alcohol or drug abuse patient.[facility] SystemIn the event this information is protected by the Federal Confidentiality of Alcohol and Drug Abuse Patient Records regulations: The Federal rules restrict any use of the information to criminally investigate or prosecute any alcohol or drug abuse patient.[facility] SystemIn the event this information is protected by the Federal Confidentiality of Alcohol and Drug Abuse Patient Records regulations: The Federal rules restrict any use of the information to criminally investigate or prosecute any alcohol or drug abuse patient.[facility] SystemIn the event this information is protected by the Federal Confidentiality of Alcohol and Drug Abuse Patient Records regulations: The Federal rules restrict any use of the information to criminally investigate or prosecute any alcohol or drug abuse patient.[facility] SystemIn the event this information is protected by the Federal Confidentiality of Alcohol and Drug Abuse Patient Records regulations: The Federal rules restrict any use of the information to criminally investigate or prosecute any alcohol or drug abuse patient.[facility] SystemIn the event this information is protected by the Federal Confidentiality of Alcohol and Drug Abuse Patient Records regulations: The Federal rules restrict any use of the information to criminally investigate or prosecute any alcohol or drug abuse patient.[facility] SystemIn the event this information is protected by the Federal Confidentiality of Alcohol and Drug Abuse Patient Records regulations: The Federal rules restrict any use of the information to criminally investigate or prosecute any alcohol or drug abuse patient.[facility] SystemIn the event this information is protected by the Federal Confidentiality of Alcohol and Drug Abuse Patient Records regulations: The Federal rules restrict any use of the information to criminally investigate or prosecute any alcohol or drug abuse patient.[facility] SystemIn the event this information is protected by the Federal Confidentiality of Alcohol and Drug Abuse Patient Records regulations: The Federal rules restrict any use of the information to criminally investigate or prosecute any alcohol or drug abuse patient.[facility] SystemIn the event this information is protected by the Federal Confidentiality of Alcohol and Drug Abuse Patient Records regulations: The Federal rules restrict any use of the information to criminally investigate or prosecute any alcohol or drug abuse patient.[facility] SystemIn the event this information is protected by the Federal Confidentiality of Alcohol and Drug Abuse Patient Records regulations: The Federal rules restrict any use of the information to criminally investigate or prosecute any alcohol or drug abuse patient.[facility] SystemIn the event this information is protected by the Federal Confidentiality of Alcohol and Drug Abuse Patient Records regulations: The Federal rules restrict any use of the information to criminally investigate or prosecute any alcohol or drug abuse patient.[facility] SystemIn the event this information is protected by the Federal Confidentiality of Alcohol and Drug Abuse Patient Records regulations: The Federal rules restrict any use of the information to criminally investigate or prosecute any alcohol or drug abuse patient.[facility] SystemIn the event this information is protected by the Federal Confidentiality of Alcohol and Drug Abuse Patient Records regulations: The Federal rules restrict any use of the information to criminally investigate or prosecute any alcohol or drug abuse patient.[facility] SystemIn the event this information is protected by the Federal Confidentiality of Alcohol and Drug Abuse Patient Records regulations: The Federal rules restrict any use of the information to criminally investigate or prosecute any alcohol or drug abuse patient.[facility] SystemIn the event this information is protected by the Federal Confidentiality of Alcohol and Drug Abuse Patient Records regulations: The Federal rules restrict any use of the information to criminally investigate or prosecute any alcohol or drug abuse patient.[facility] SystemIn the event this information is protected by the Federal Confidentiality of Alcohol and Drug Abuse Patient Records regulations: The Federal rules restrict any use of the information to criminally investigate or prosecute any alcohol or drug abuse patient.[facility] SystemIn the event this information is protected by the Federal Confidentiality of Alcohol and Drug Abuse Patient Records regulations: The Federal rules restrict any use of the information to criminally investigate or prosecute any alcohol or drug abuse patient.[facility] Care Teams (unrecognized sec tion [...] Active Member Role Status Dates Gay Enciso CORRUGATOR OPERATOR HELPER-C Primary Care Provider Active Start: November 22, 2024 Janes Barfield MD Attending Provider Active Start: November 22, 2024 Team Status: Inactive Member Role Status Dates Gay Enciso CORRUGATOR OPERATOR HELPER-C Primary Care Provider Active Start: November 30, 2024 End: November 30, 2024 Margie Arnett , CORRUGATOR OPERATOR HELPER Attending Provider Active Start: November 30, 2024 End: November 30, 2024 Team Status: Inactive Member Role Status Dates Gay Enciso CORRUGATOR OPERATOR HELPER-C Primary Care Provider Active Start: December 12, 2024 End: December 12, 2024 Bandar Portillo APRN Attending Provider Active Start: December 12, 2024 End: December 12, 2024 Team Status: Inactive Member Role Status Dates Gay Enciso CORRUGATOR OPERATOR HELPER-C Primary Care Provider Active Start: January 17, 2025 End: January 17, 2025 Margie Arnett , CORRUGATOR OPERATOR HELPER Attending Provider Active Start: January 17, 2025 End: January 17, 2025 Team Status: Active Member Role Status Dates Gay Enciso CORRUGATOR OPERATOR HELPER-C Primary Care Provider Active Start: January 31, 2025 Adolfo Kang MD Attending Provider Active Sta rt: January 31, 2025 Adolfo Kang MD Other Provider Active Start: January 31, 2025 Team Status: Inactive Member Role Status Dates Gay Enciso CORRUGATOR OPERATOR HELPER-C Primary Care Provider Active Start: February 14, 2025 End: February 14, 2025 Margie Arnett , CORRUGATOR OPERATOR HELPER Attending Provider Active Start: February 14, 2025 [...] November 04, 2023 End: November 04, 2023 Student Development Specialist Relationship Specialty Start Date End Date Gay Enciso, WAREHOUSE DISTRIBUTION SPECIALIST.SPEECH THERAPY DIRECTOR [address] [place] [address] PCP - General Family Practice 10/24/21 Student Development Specialist Relationship Specialty Start Date End Date Gay Enciso, WAREHOUSE DISTRIBUTION SPECIALIST.SPEECH THERAPY DIRECTOR [address] [place] [address] PCP - General Family Medicine 10/24/21 Manuel Ferris MD [address] [place] [address] Referring Family Medicine 02/12/22 Student Development Specialist Relationship Specialty Start Date End Date Manuel Ferris MD [address] [place] [address] PCP - General Family Medicine 02/27/22 Manuel Ferris MD [address] [facility] [place] [address] Referring Family Medicine 02/12/22 Student Development Specialist Relationship Specialty Start Date End Date Manuel Ferris MD [address] [place] [address] PCP - General Family Medicine 02/27/22 Manuel Ferris MD [address] [facility] [place] [address] Referring Family Medicine 02/12/22 Student Development Specialist Relationship Specialty Start Date End Date Manuel Ferris MD [address] [place] [address] PCP - General Family Medicine 02/27/22 Manuel Ferris MD [address] [facility] [place] [address] Referring Family Medicine 02/12/22 Student Development Specialist Relationship Specialty Start Date End Date Manuel Ferris MD [address] [facility] [place] [address] PCP - General Family Medicine 02/27/22 Manuel Ferris MD [address] [facility] [place] [address] Referring Family Medicine 02/12/22 Student Development Specialist Relationship Specialty Start Date End Date Manuel Ferris MD [address] [facility] [place] [address] PCP - General Family Medicine 02/27/22 Manuel Ferris MD [address] [facility] [place] [address] Referring Family Medicine 02/12/22 Student Development Specialist Relationship Specialty Start Date End Date Manuel Ferris MD [address] [facility] [place] [address] PCP - General Family Medicine 02/27/22 Manuel Ferris MD [address] [facility] [place] [address] Referring Family Medicine 02/12/22 Student Development Specialist Relationship Specialty Start Date End Date Manuel Ferris MD [address] [facility] [place] [address] PCP - General Family Medicine 02/27/22 Manuel Ferris MD [address] [facility] [place] [address] Referring Family Medicine 02/12/22 Student Development Specialist Relationship Specialty Start Date End Date Manuel Ferris MD [address] [facility] [place] [address] PCP - General Family Medicine 02/27/22 Manuel Ferris MD [address] [facility] [place] [address] Referring Family Medicine 02/12/22 Student Development Specialist Relationship Specialty Start Date End Date Manuel Ferris MD [address] [facility] [place] [address] PCP - General Family Medicine 02/27/22 Manuel Ferris MD [address] [facility] [place] [address] Referring Family Medicine 02/12/22 Student Development Specialist Relationship Specialty Start Date End Date Manuel Ferris MD [address] [facility] [place] [address] PCP - General Family Medicine 02/27/22 Manuel Ferris MD [address] [facility] [place] [address] Referring Family Medicine 02/12/22 Student Development Specialist Relationship Specialty Start Date End Date Manuel Ferris MD [address] [facility] [place] [address] PCP - General Family Medicine 02/27/22 Manuel Ferris MD [address] [facility] [place] [address] Referring Family Medicine 02/12/22 Student Development Specialist Relationship Specialty Start Date End Date Manuel Ferris MD [address] [facility] [place] [address] PCP - General Family Medicine 02/27/22 Manuel Ferris MD [address] [facility] [place] [address] Referring Family Medicine 02/12/22 Student Development Specialist Relationship Specialty Start Date End Date Manuel Ferris MD [address] [facility] [place] [address] PCP - General Family Medicine 02/27/22 Manuel Ferris MD [address] [facility] [place] [address] Referring Family Medicine 02/12/22 Student Development Specialist Relationship Specialty Start Date End Date Manuel Ferris MD [address] [facility] [place] [address] PCP - General Family Medicine 02/27/22 Manuel Ferris MD [address] [facility] [place] [address] Referring Family Medicine 02/12/22 Student Development Specialist Relationship Specialty Start Date End Date Manuel Ferris MD [address] [facility] [place] [address] PCP - General Family Medicine 02/27/22 Manuel Ferris MD [address] [facility] [place] [address] Referring Family Medicine 02/12/22 Student Development Specialist Relationship Specialty Start Date End Date Manuel Ferris MD [address] [facility] [place] [address] PCP - General Family Medicine 02/27/22 Manuel Ferris MD [address] [facility] [place] [address] Referring Family Medicine 02/12/22 Student Development Specialist Relationship Specialty Start Date End Date Manuel Ferris MD [address] [facility] [place] [address] PCP - General Family Medicine 02/27/22 Manuel Ferris MD [address] [facility] [place] [address] Referring Family Medicine 02/12/22 Student Development Specialist Relationship Specialty Start Date End Date Manuel Ferris MD [address] [facility] [place] [address] PCP - General Family Medicine 02/27/22 Manuel Ferris MD [address] [facility] [place] [address] Referring Family Medicine 02/12/22 Student Development Specialist Relationship Specialty Start Date End Date Manuel Ferris MD [address] [facility] [place] [address] PCP - General Family Medicine 02/27/22 Manuel Ferris MD [address] [facility] [place] [address] Referring Family Medicine 02/12/22 Student Development Specialist Relationship Specialty Start Date End Date Manuel Ferris MD [address] [facility] [place] [address] PCP - General Family Medicine 02/27/22 Manuel Ferris MD [address] [facility] [place] [address] Referring Family Medicine 02/12/22 Student Development Specialist Relationship Specialty Start Date End Date Manuel Ferris MD [address] [facility] [place] [address] PCP - General Family Medicine 02/27/22 Manuel Ferris MD [address] [facility] [place] [address] Referring Family Medicine 02/12/22 Student Development Specialist Relationship Specialty Start Date End Date Manuel Ferris MD PCP - General Family Medicine 02/27/22 Manuel Ferris MD Referring Family Medicine 02/12/22 Student Development Specialist Relationship Specialty Start Date End Date Manuel Ferris MD PCP - General Family Medicine 02/27/22 Manuel Ferris MD Referring Family Medicine 02/12/22 Student Development Specialist Relationship Specialty Start Date End Date Manuel Ferris MD PCP - General Family Medicine 02/27/22 Manuel Ferris MD Referring Family Medicine 02/12/22 Student Development Specialist Relationship Specialty Start Date End Date Manuel Ferris MD PCP - General Family Medicine 02/27/22 Manuel Ferris MD Referring Family Medicine 02/12/22 Student Development Specialist Relationship Specialty Start Date End Date Manuel Ferris MD PCP - General Family Medicine 02/27/22 Manuel Ferris MD Referring Family Medicine 02/12/22 Student Development Specialist Relationship Specialty Start Date End Date Manuel Ferris MD PCP - General Family Medicine 02/27/22 Manuel Ferris MD Referring Family Medicine 02/12/22 Student Development Specialist Relationship Specialty Start Date End Date Manuel Ferris MD PCP - General Family Medicine 02/27/22 Manuel Ferris MD Referring Family Medicine 02/12/22 Student Development Specialist Relationship Specialty Start Date End Date Manuel Ferris MD PCP - General Family Medicine 02/27/22 Manuel Ferris MD Referring Family Medicine 02/12/22 Student Development Specialist Relationship Specialty Start Date End Date Manuel Ferris MD PCP - General Family Medicine 02/27/22 Manuel Ferris MD Referring Family Medicine 02/12/22 Student Development Specialist Relationship Specialty Start Date End Date Manuel Ferris MD PCP - General Family Medicine 02/27/22 Manuel Ferirs MD Referring Family Medicine 02/12/22 Student Development Specialist Relationship Specialty Start Date End Date Manuel Ferris MD PCP - General Family Medicine 02/27/22 Manuel Ferris MD Referring Family Medicine 02/12/22 Student Development Specialist Relationship Specialty Start Date End Date Manuel Ferris MD PCP - General Family Medicine 02/27/22 Manuel Ferris MD Referring Family Medicine 02/12/22 Student Development Specialist Relationship Specialty Start Date End Date Manuel Ferris MD PCP - General Family Medicine 02/27/22 Manuel Ferris MD Referring Family Medicine 02/12/22 Student Development Specialist Relationship Specialty Start Date End Date Manuel Ferris MD PCP - General Family Medicine 02/27/22 Manuel Ferris MD Referring Family Medicine 02/12/22 Student Development Specialist Relationship Specialty Start Date End Date Manuel Ferris MD PCP - General Family Medicine 02/27/22 Manuel Ferris MD Referring Family Medicine 02/12/22 Student Development Specialist Relationship Specialty Start Date End Date Manuel Ferris MD PCP - General Family Medicine 02/27/22 Manuel Ferrsi MD Referring Family Medicine 02/12/22 Student Development Specialist Relationship Specialty Start Date End Date Manuel Ferris MD PCP - General Family Medicine 02/27/22 Manuel Ferris MD Referring Family Medicine 02/12/22 Student Development Specialist Relationship Specialty Start Date End Date Manuel Ferris MD PCP - General Family Medicine 02/27/22 Manuel Ferris MD Referring Family Medicine 02/12/22 Student Development Specialist Relationship Specialty Start Date End Date Manuel Ferris MD PCP - General Family Medicine 02/27/22 Manuel Ferris MD Referring Family Medicine 02/12/22 Student Development Specialist Relationship Specialty Start Date End Date Manuel Ferris MD PCP - General Family Medicine 02/27/22 Manuel Ferris MD Referring Family Medicine 02/12/22 Student Development Specialist Relationship Specialty Start Date End Date Manuel Ferris MD PCP - General Family Medicine 02/27/22 Manuel Ferris MD Referring Family Medicine 02/12/22 Student Development Specialist Relationship Specialty Start Date End Date Manuel Ferris MD PCP - General Family Medicine 02/27/22 Manuel Ferris MD Referring Family Medicine 02/12/22 Student Development Specialist Relationship Specialty Start Date End Date Manuel Ferris MD PCP - General Family Medicine 02/27/22 Manuel Ferris MD Referring Family Medicine 02/12/22 Student Development Specialist Relationship Specialty Start Date End Date Manuel Ferris MD PCP - General Family Medicine 02/27/22 Manuel Ferris MD Referring Family Medicine 02/12/22 Student Development Specialist Relationship Specialty Start Date End Date Manuel Ferris MD PCP - General Family Medicine 02/27/22 Manuel Ferris MD Referring Family Medicine 02/12/22 Student Development Specialist Relationship Specialty Start Date End Date Manuel Ferris MD PCP - General Family Medicine 02/27/22 Manuel Ferris MD Referring Family Medicine 02/12/22 Student Development Specialist Relationship Specialty Start Date End Date Charles NicoleDO [address] [place] [id number] PCP - General 10/22/18 Michelle Jasmine, WAREHOUSE DISTRIBUTION SPECIALIST-SPEECH THERAPY DIRECTOR [address] [address] Nurse Practitioner Cardiology 06/08/23 Student Development Specialist Relationship Specialty Start Date End Date Gay Enciso, WAREHOUSE DISTRIBUTION SPECIALIST-SPEECH THERAPY DIRECTOR [address] [place] [address] PCP - General 07/13/23 Michelle Jasmine, WAREHOUSE DISTRIBUTION SPECIALIST-SPEECH THERAPY DIRECTOR [address] [facility] [address] [place] [address] Nurse Practitioner Cardiology 06/08/23 Aurora Patel MD [address] [place] [address] [address] [id number] Consulting Physician Cardiology 06/23/23 Student Development Specialist Relationship Specialty Start Date End Date Manuel Ferris MD PCP - General Family Medicine 02/27/22 Manuel Ferris MD Referring Family Medicine 02/12/22 Student Development Specialist Relationship Specialty Start Date End Date Manuel Ferris MD PCP - General Family Medicine 02/27/22 Manuel Ferris MD Referring Family Medicine 02/12/22 Team Status: Active Member Role Status Mark Salomon MD Primary Care Provider Active Start: July 28, 2023 Virgil Green MD Attending Provider Active S tart: July 28, 2023 Student Development Specialist Relationship Specialty Start Date End Date Manuel Ferris MD PCP - General Family Medicine 02/27/22 Manuel Ferris MD Referring Family Medicine 02/12/22 Team Status: Inactive Member Role Status Mark Salomon MD Primary Care Provider Active Start: December 16, 2023 End: December 16, 2023 Mirela Kelsey MD Attending Provider Active Sta rt: December 16, 2023 End: December 16, 2023 Student Development Specialist Relationship Specialty Start Date End Date Manuel Ferris MD PCP - General Family Medicine 02/27/22 Manuel Ferris MD Referring Family Medicine 02/12/22 Student Development Specialist Relationship Specialty Start Date End Date Manuel Ferris MD PCP - General Family Medicine 02/27/22 Manuel Ferris MD Referring Family Medicine 02/12/22 Student Development Specialist Relationship Specialty Start Date End Date Manuel Ferris MD PCP - General Family Medicine 02/27/22 Manuel Ferris MD Referring Family Medicine 02/12/22 Student Development Specialist Relationship Specialty Start Date End Date [...] February 28, 2024 End: February 28, 2024 Student Development Specialist Relationship Specialty Start Date End Date Charles Nicole MD [address] [place] [address] PCP - General Family Medicine 02/09/24 Team Status: Inactive Member Role Status Dates WALESKA Galloway Primary Care Provider Active Start: March 16, 2024 End: March 16, 2024 Bandar Portillo APRN Attending Provider Active Start: March 16, 2024 End: March 16, 2024 Student Development Specialist Relationship Specialty Start Date End Date Charles Nicole MD [address] [place] [address] PCP - General Family Medicine 02/09/24 Student Development Specialist Relationship Specialty Start Date End Date Charles Nicole MD [address] [place] [address] PCP - General Family Medicine 02/09/24 Student Development Specialist Relationship Specialty Start Date End Date Charles Nicole MD [address] [place] [address] PCP - General Family Medicine 02/09/24 Student Development Specialist Relationship Specialty Start Date End Date Charles Nicole MD [address] [facility] [place] [address] PCP - General Family Medicine 02/09/24 Student Development Specialist Relationship Specialty Start Date End Date Charles Nicole MD [address] [place] [address] PCP - General Family Medicine 02/09/24 Student Development Specialist Relationship Specialty Start Date End Date Manuel Ferris MD PCP - General Family Medicine 02/27/22 Manuel Ferris MD Referring Family Medicine 02/12/22 Student Development Specialist Relationship Specialty Start Date End Date Charles Nicole MD [address] [place] [address] PCP - General Family Medicine 02/09/24 Student Development Specialist Relationship Specialty Start Date End Date Charles Nicole MD [address] [place] [address] PCP - General Family Medicine 02/09/24 Student Development Specialist Relationship Specialty Start Date End Date Charles Nicole MD [address] [place] [address] PCP - General Family Medicine 02/09/24 Student Development Specialist Relationship Specialty Start Date End Date Charles Nicole MD [address] [place] [address] PCP - General Family Medicine 02/09/24 Student Development Specialist Relationship Specialty Start Date End Date Manuel Ferris MD PCP - General Family Medicine 02/27/22 Manuel Ferris MD Referring Family Medicine 02/12/22 Student Development Specialist Relationship Specialty Start Date End Date Charles Nicole MD [address] [place] [address] PCP - General Family Medicine 02/09/24 Student Development Specialist Relationship Specialty Start Date End Date Manuel Ferris MD PCP - General Family Medicine 02/27/22 Manuel Ferris MD Referring Family Medicine 02/12/22 Student Development Specialist Relationship Specialty Start Date End Date Manuel Ferris MD PCP - General Family Medicine 02/27/22 Manuel Ferris MD Referring Family Medicine 02/12/22 Student Development Specialist Relationship Specialty Start Date End Date Charles Nicole MD [address] [place] [address] PCP - General Family Medicine 02/09/24 Student Development Specialist Relationship Specialty Start Date End Date Manuel Ferris MD PCP - General Family Medicine 02/27/22 Manuel Ferris MD Referring Family Medicine 02/12/22 Manuel Ferris MD [address] [place] [address] Referring Family Medicine 07/06/24 Team Status: Inactive Member Role Status Dates Gay Enciso , CARISSA-C Primary Care Provider Active Start: July 10, 2024 End: July 10, 2024 Adolfo Kang MD Attending Provider Active Sta rt: July 10, 2024 End: July 10, 2024 Student Development Specialist Relationship Specialty Start Date End Date Manuel Ferris MD PCP - General Family Medicine 02/27/22 Manuel Ferris MD Referring Family Medicine 02/12/22 Manuel Ferris MD [address] [place] [address] Referring Family Medicine 07/06/24 Student Development Specialist Relationship Specialty Start Date End Date Manuel Ferris MD PCP - General Family Medicine 02/27/22 Manuel Ferris MD Referring Family Medicine 02/12/22 Manuel Ferris MD [address] [place] [id number] Referring Family Medicine 07/06/24 Team Status: Inactive Member Role Status Dates Gay Enciso NP-C Primary Care Provider Active Start: July 19, 2024 End: July 19, 2024 Adolfo Kang MD Attending Provider Active Sta rt: July 19, 2024 End: July 19, 2024 Student Development Specialist Relationship Specialty Start Date End Date Gay Enciso MD [address] [place] [id number] Referring Physician Family Medicine 07/18/24 Student Development Specialist Relationship Specialty Start Date End Date Manuel Ferris MD PCP - General Family Medicine 02/27/22 Manuel Ferris MD Referring Family Medicine 02/12/22 Manuel Ferris MD [address] [place] [address] Referring Family Medicine 07/06/24 Student Development Specialist Relationship Specialty Start Date End Date Gay Enciso MD [address] [place] [address] Referring Physician Family Medicine 07/18/24 Student Development Specialist Relationship Specialty Start Date End Date Gay Enciso WAREHOUSE DISTRIBUTION SPECIALIST-SPEECH THERAPY DIRECTOR [address] [place] [address] PCP - General 07/13/23 Michelle Jasmine WAREHOUSE DISTRIBUTION SPECIALIST-SPEECH THERAPY DIRECTOR Nurse Practitioner Cardiology 06/08/23 Aurora Patel MD [...] July 31, 2024 End: July 31, 2024 Student Development Specialist Relationship Specialty Start Date End Date Manuel Ferris MD PCP - General Family Medicine 02/27/22 Manuel Ferris MD Referring Family Medicine 02/12/22 [place] [address] [place] [address] Referring Family Medicine 07/06/24 Student Development Specialist Relationship Specialty Start Date End Date Manuel Ferris MD PCP - General Family Medicine 02/27/22 Manuel Ferris MD Referring Family Medicine 02/12/22 Manuel Ferris MD [address] [place] [address] Referring Family Medicine 07/06/24 Student Development Specialist Relationship Specialty Start Date End Date Manuel Ferris MD PCP - General Family Medicine 02/27/22 Manuel Ferris MD Referring Family Medicine 02/12/22 Manuel Ferris MD [address] [place] [address] Referring Family Medicine 07/06/24 Team Status: Inactive Member Role Status Dates Gay Enciso NP-C Primary Care Provider Active Start: August 22, 2024 End: August 22, 2024 Adolfo Kang MD Attending Provider Active Sta rt: August 22, 2024 End: August 22, 2024 Student Development Specialist Relationship Specialty Start Date End Date Gay Enciso MD [address] [place] [address] Referring Physician Family Medicine 07/18/24 Student Development Specialist Relationship Specialty Start Date End Date Manuel Ferris MD PCP - General Family Medicine 02/27/22 Manuel Ferris MD Referring Family Medicine 02/12/22 Manuel Ferris MD [address] [place] [address] Referring Family Medicine 07/06/24 Student Development Specialist Relationship Specialty Start Date End Date Manuel Ferris MD PCP - General Family Medicine 02/27/22 Manuel Ferris MD Referring Family Medicine 02/12/22 Manuel Ferris MD [address] [place] [phone] Referring Family Medicine 07/06/24 Student Development Specialist Relationship Specialty Start Date End Date Gay Enciso MD [address] [place] [id number] Referring Physician Family Medicine 07/18/24 Student Development Specialist Relationship Specialty Start Date End Date Gay Enciso MD [address] [place] [id number] Referring Physician Family Medicine 07/18/24 Student Development Specialist Relationship Specialty Start Date End Date Manuel Ferris MD PCP - General Family Medicine 02/27/22 Manuel Ferris MD Referring Family Medicine 02/12/22 Manuel Ferris MD [address] [place] [address] Referring Family Medicine 07/06/24 Student Development Specialist Relationship Specialty Start Date End Date Manuel Ferris MD PCP - General Family Medicine 02/27/22 Manuel Ferris MD Referring Family Medicine 02/12/22 Manuel Ferris MD [address] [place] [address] Referring Family Medicine 07/06/24 Student Development Specialist Relationship Specialty Start Date End Date Manuel Ferris MD PCP - General Family Medicine 02/27/22 Manuel Ferris MD Referring Family Medicine 02/12/22 Manuel Ferris MD [address] [place] [id number] Referring Family Medicine 07/06/24 Student Development Specialist Relationship Specialty Start Date End Date Manuel Ferris MD PCP - General Family Medicine 02/27/22 Manuel Ferris MD Referring Family Medicine 02/12/22 Manuel Ferris MD [address] [place] [address] Referring Family Medicine 07/06/24 Student Development Specialist Relationship Specialty Start Date End Date Manuel Ferris MD PCP - General Family Medicine 02/27/22 Manuel Ferris MD Referring Family Medicine 02/12/22 Manuel Ferris MD [address] [place] [address] Referring Family Medicine 07/06/24 Student Development Specialist Relationship Specialty Start Date End Date Manuel Ferris MD PCP - General Family Medicine 02/27/22 Manuel Ferris MD Referring Family Medicine 02/12/22 Manuel Ferris MD [address] [place] [address] Referring Family Medicine 07/06/24 Student Development Specialist Relationship Specialty Start Date End Date Manuel Ferris MD PCP - General Family Medicine 02/27/22 Manuel Ferris MD Referring Family Medicine 02/12/22 Manuel Ferris MD [address] [place] [address] Referring Family Medicine 07/06/24 Student Development Specialist Relationship Specialty Start Date End Date Manuel Ferris MD PCP - General Family Medicine 02/27/22 Manuel Ferris MD Referring Family Medicine 02/12/22 Manuel Ferris MD [address] [place] [address] Referring Family Medicine 07/06/24 Student Development Specialist Relationship Specialty Start Date End Date Manuel Ferris MD PCP - General Family Medicine 02/27/22 Manuel Ferris MD Referring Family Medicine 02/12/22 Manuel Ferris MD [address] [place] [address] Referring Family Medicine 07/06/24 Student Development Specialist Relationship Specialty Start Date End Date Manuel Ferris MD PCP - General Family Medicine 02/27/22 Manuel Ferris MD Referring Family Medicine 02/12/22 Manuel Ferris MD [address] [place] [address] Referring Family Medicine 07/06/24 Student Development Specialist Relationship Specialty Start Date End Date Manuel Ferris MD PCP - General Family Medicine 02/27/22 Manuel Ferris MD Referring Family Medicine 02/12/22 Manuel Ferris MD [address] [place] [address] Referring Family Medicine 07/06/24 Student Development Specialist Relationship Specialty Start Date End Date Manuel Ferris MD PCP - General Family Medicine 02/27/22 Manuel Ferris MD Referring Family Medicine 02/12/22 Manuel Ferris MD [address] [place] [address] Referring Family Medicine 07/06/24 Student Development Specialist Relationship Specialty Start Date End Date Manuel Ferris MD PCP - General Family Medicine 02/27/22 Manuel Ferris MD Referring Family Medicine 02/12/22 Manuel Ferris MD [address] [place] [address] Referring Family Medicine 07/06/24 Team Status: Inactive [...] November 13, 2024 End: November 13, 2024 Student Development Specialist Relationship Specialty [place] [address] [place] [address] Referring Physician Family Medicine 07/18/24 Student Development Specialist Relationship Specialty Start Date End Date Manuel Ferris MD PCP - General Family Medicine 02/27/22 Manuel Ferris MD Referring Family Medicine 02/12/22 Manuel Ferris MD [address] [place] [address] Referring Family Medicine 07/06/24 Student Development Specialist Relationship Specialty Start Date End Date Manuel Ferris MD PCP - General Family Medicine 02/27/22 Manuel Ferris MD Referring Family Medicine 02/12/22 Manuel Ferris MD [address] [place] [address] Referring Family Medicine 07/06/24 Student Development Specialist Relationship Specialty Start Date End Date Manuel Ferris MD PCP - General Family Medicine 02/27/22 Manuel Ferris MD Referring Family Medicine 02/12/22 Manuel Ferris MD [address] [place] [phone] Referring Family Medicine 07/06/24 Team Status: Inactive Member Role Status Dates Gay Enciso NP-C Primary Care Provider Active Start: January 31, 2025 End: January 31, 2025 Adolfo Kang MD Attending Provider Active Sta rt: January 31, 2025 End: January 31, 2025 Student Development Specialist Relationship Specialty Start Date End Date Gay Enciso MD [address] [place] [address] Referring Physician Family Medicine 07/18/24 Student Development Specialist Relationship Specialty Start Date End Date Gay Enciso MD [address] [place], [place] [address] Referring Physician Family Medicine 07/18/24 Inactive Administered [...] BE BASED ON THE PRIMARY CLINICAL RECORDS. [employer] provides no warranty or guarantee of the accuracy or completeness of information in this document.
--- OUTSIDE RECORDS SUMMARY | 2025-02-24 23:56 | XMS_ITS | Encounter Summary ---
Author Organization [facility] Address [facility] [place] [address] Care Team Providers Care Vocational Instructor Name Role Phone Manuel Klein MD Unavailable [phone] Manuel Klein MD Primary Care Provider +-4 Manuel Klein MD Unavailable [phone] Source Comments In the event this [...] Advice Infectious Disease [address] [place] [address] Tiffany Head DO [address] [place] [address] Appointment Social History Tobacco Use Types [...] is lower risk 4 09/24/2022 Data from: https://www.neighborhoodatlas.medicine.[facility]/. Last address used for calculation [address] 09/24/2022 Comments No Sex and Gender [...] Info) Description 03/08/2025 2:00 PM EDT [facility] Hematology/Oncology [address] [place] [address] B[place]STA - 03/21/2025 9:00 AM EDT Office Visit [facility] [address] [place] [address] [place] [address] 4 week follow up IVIG - pt to see [facility]ON for this appt per [facility] 03/21/2025 9:20 AM EDT Visit (SP) Office Hematology/Oncology [address] [place] [address] Jose Cho MD [address] [place] [address] 4 week follow up IVIG - pt to see MASON for this appt per [facility] 03/21/2025 9:40 AM EDT Infusion Center Hematology/Oncology [address] [place] [address] Gabbi, Chair [address] [place] [address] 4 week follow up IVIG - pt to see MASON for this appt per [facility] 04/05/2025 2:00 PM EST [facility]fusion Center Hematology/Oncology [address] [place] [address] BENLYSTA - 05/03/2025 2:00 PM EST [facility]fusion Center Hematology/Oncology [address] [place] [address] B[place] - documented as of this encounter Visit Diagnoses Not on filedocumented in this encounter Care Teams Vocational Instructor Relationship Specialty Start Date End Date Manuel Klein MD PCP - General Family Medicine 02/27/22 Manuel Klein MD Referring Family Medicine 02/12/22 Manuel Klein MD [address] [place] [address] Referring Family Medicine 07/06/24 documented as of this encounter
--- OUTSIDE RECORDS SUMMARY | 2025-02-24 23:56 | XMS_ITS | Encounter Summary ---
Author Organization [facility] Address [address] [place] [address] Care Team Providers Care First Leveler Name Role Phone Manuel Klein MD Unavailable [phone] Manuel Klein MD Primary Care Provider +-4 Manuel Klein MD Unavailable [phone] Source Comments In the event this information is protected by the Federal Confidentiality of Alcohol and Drug AbusePatient Records regulations: The Federal rules restrict any use of the information to criminally investigate or prosecute any alcohol or drug abuse patient.[facility] Reason for Visit * Reason Comments Refill Request Encounter Details Date Type Department Care Team (Late st Contact Info) Description 04/26/2024 Refill Rheumatology [address] [place], [place] [id number] Sandra Park MD [address] [place] [address] Refill Request Social History Tobacco [...] risk 4 09/24/2022 Data from: https://www.neighborhoodatlas.medicine.[facility]/. Last address used for calculation [address] 09/24/2022 Comments No Sex and Gender [...] Info) Description 03/08/2025 2:00 PM EDT [facility] Hematology/Oncology [address] [place] [place] [address] BENLYSTA - 03/21/2025 9:00 AM EDT Office Visit [facility] [address] [place] [address] [place] [address] 4 week follow up IVIG - pt to see MASON for this appt per [facility] 03/21/2025 9:20 AM EDT Visit (SP) Office Hematology/Oncology [address] [place] [place] [address] Jose Cho MD [address] [place] [place] [address] 4 week follow up IVIG - pt to see MASON for this appt per [facility] 03/21/2025 9:40 AM EDT Infusion Center Hematology/Oncology [address] [place] [place] [address] Gabbi, Chair [address] [place] [address] 4 week follow up IVIG - pt to see MASON for this appt per [facility] 04/05/2025 2:00 PM EST Infusion Center Hematology/Oncology [address] [place] [place] [address] BENLYSTA - 05/03/2025 2:00 PM EST Infusion Center Hematology/Oncology [address] [place] [address] BENLYSTA - documented as of this encounter Visit Diagnoses Diagnosis Other systemic lupus erythematosus with other organ involvement (HCC) documented in this encounter Care Teams First Leveler Relationship Specialty Start Date End Date Manuel Klein MD PCP - General Family Medicine 02/27/22 Manuel Klein MD Referring Family Medicine 02/12/22 Manuel Klein MD [address] [place] [address] Referring Family Medicine 07/06/24 documented as of this encounter
--- OUTSIDE RECORDS SUMMARY | 2025-02-24 23:56 | XMS_ITS | Encounter Summary ---
Author Organization [facility] Address [address] [facility] [place] [address] Care Team Providers Care Research Program Intern Name Role Phone House, Charles Culver MD Primary Care Provider [phone] Gay De La Torre MD Unavailable [phone] Reason for Visit * Reason Comments Med Refill Encounter Details Date Type Department Care Team (Late Contact Info) Description 07/02/2024 Refill [facility] [address] [facility] [address] [place] [address] Mary Grace Mejias MD [address] [facility] [address] [place] [address] LPRD (laryngopharyngeal reflux disease) Social History Tobacco [...] AM EDT Consult [facility] [address] [facility] [address] [place] [address] Terence Blum MD [address] [facility] [address] [place] [address] 03/19/2025 10:20 AM EDT Office Visit [facility] [place] [facility] [address] [place] [address] Mary Grace Mejias MD [address] [facility] [address] [place] [address] 07/25/2025 11:00 AM EST Office Visit [facility] [address] [place] [address] Cynthia English MD [address] [place] [address] documented as of this encounter Visit Diagnoses Diagnosis LPRD (laryngopharyngeal reflux disease) Acute laryngitis, without mention of obstruction documented in this encounter Care Teams Research Program Intern Relationship Specialty Start Date End Date Charles Nicole MD PCP - General Family Medicine 02/09/24 07/17/24 Gay De La Torre MD [address] [place] [address] Referring Physician Family Medicine 07/18/24 documented as of this encounter
--- OUTSIDE RECORDS SUMMARY | 2025-02-24 23:56 | XMS_ITS | Encounter Summary ---
Author Organization [facility] Address [address] [facility] [place] [address] Care Team Providers Care Carbonating Stone Cleaner Name Role Phone House, Charles Culver MD Primary Care Provider [phone] Gay De La Torre MD Unavailable [phone] Encounter Details Date Type Department Care Team (Late Contact Info) Description 06/20/2024 Orders Only [facility] [address] [place] [address] Sabi Barker LPN [address] [place] [phone] Social History Tobacco Use Types Packs/Day Years [...] AM EDT Consult [facility] [address] [phone] Terence Blum MD 703 [facility] [address] [place] [address] 03/19/2025 10:20 AM EDT Office Visit [facility] [address] [place] [address] Mary Grace Mejias MD 112 [facility] [address] [place] [address] 07/25/2025 11:00 AM EST Office Visit [facility] [address] [place] [address] Cynthia English MD [address] [place] [address] documented as of this encounter Procedures Procedure Name Priority Date/Time Associated Diagnosis Comments PAP SMEAR Routine 06/06/2024 12:00 AM EST documented in this encounter Results * Pap Smear (06/06/2024 12:00 AM EST) Swab Cervical swab / Unknown [facility] ORDERABLES Final Re sult EXTERNAL LAB documented in this encounter Visit Diagnoses Not on filedocumented in this encounter Care Teams Carbonating Stone Cleaner Relationship Specialty Start Date End Date Charles Nicole MD PCP - General Family Medicine 02/09/24 07/17/24 Gay De La Torre MD [facility] [place] [address] Referring Physician Family Medicine 07/18/24 documented as of this encounter
--- OUTSIDE RECORDS SUMMARY | 2025-02-24 23:56 | XMS_ITS | Encounter Summary ---
Author Organization [facility] Address [address] [facility] [place] [place] [address] Care Team Providers Care Ceo Na Name Role Phone House, Charles Culver MD Primary Care Provider Gay De La Torre MD Unavailable [phone] Encounter Details Date Type Department Care Team (Late Contact Info) Description 04/07/2024 Clinisync Result Encounter [facility] External Department Unsolicited Luan Valdivia, DO [address] [facility] [place]am [place], [place] [id number] Social History Tobacco Use Types Packs/Day Years [...] AM EDT Consult [facility] [address] [facility] 150 [place] [address] Terence Blum MD 703 [facility] 150 [place] [address] 03/19/2025 10:20 AM EDT Office Visit [facility] [address] [place] [address] Mary Grace Mejias MD [address] [facility] 130 [place] [address] 07/25/2025 11:00 AM EST Office Visit [facility] [address] [place] [address] Cynthia English MD [address] [place] [address] documented as of this encounter Procedures Procedure Name Priority Date/Time Associated Diagnosis Comments MM TOMOSYNTHESIS DIAGNOSTIC BI 04/07/2024 8:40 AM EST documented in this encounter Results * MM TOMOSYNTHESIS DIAGNOSTIC BI (04/07/2024 8:40 AM EST) Anatomical Region Laterality Modality Other 04/07/2024 8:40 AM EST Narrative 04/07/2024 8:41 AM EST [address] [address] Mammography Report Signed Patient: JONES PANIAGUA MR#: [id number] : 1980 Acct:[id number] Age/Sex: 43 / F ADM Date: 04/06/24 Loc: US Attending Dr: Luan Valdivia D.O. Ordering Physician: Luan Valdivia D.O. Results: Date of Service: 04/06/24 Follow Up: Procedure(s): MM tomosynthesis diagnostic BI Accession Number(s): [id number] cc: GAY DE LA TORRE ; Luan Valdivia D.O. Patient Name: JONES PANIAGUA MR#: [id number] : 1980 Exam Date: 04/06/2024 Ordering Doctor: [...] stomach cancer at age 56. LOCATION: The [facility] BREAST COMPOSITION: There are scattered [...] Signed By: 04/07/24 0841 DD/ 0840 TD/TT: Crt: Procedure Note Radiology, Radiologist, MD - 04/07/2024 [place] [address] Mammography Report Signed Patient: JONES PANIAGUA BMR#: [id number] : 1980Acct:[id number] Age/Sex: 43 / FADM Date: 04/06/24 Loc: US Attending Dr: Luan Valdivia D.O. Ordering Physician: Luan Valdivia D.O.Results: Date of Service: 04/06/24Follow Up: Procedure(s): MM tomosynthesis diagnostic BI Accession Number(s): [id number] cc: GAY DE LA TORRE ; Luan Valdivia D.O. Patient Name: JONES PANIAGUA MR#: [id number] : 1980 Exam Date: 04/06/2024 Ordering Doctor: DR Luan Valdivia . RADIOLOGY REPORT PROCEDURE: MM TOMOSYNTHESIS DIAGNOSTIC BI, 04/06/2024, 15:20 US BREAST BI LIMITED, 04/06/2024, 15:37 COMPARISON: MM TOMOSYNTHESIS SCREENING BI, 09/23/2023. MG MAMM [id number] MARK CAD, 09/01/2022. MG MAMM SCREEN 3D [...] stomach cancer at age 56. LOCATION: The [facility] BREAST COMPOSITION: There are scattered [...] Vito Yusuf M.D. Signed By:04/07/2441 DD/ TD/TT: Crt: Luan Valdivia DO [facility] Final Result documented in this encounter Visit Diagnoses Not on filedocumented in this encounter Care Teams Ceo Na Relationship Specialty Start Date End Date Charles Nicole MD PCP - General Family Medicine 02/09/24 07/17/24 Gay De La Torre MD [address] [place], [place] [id number] Referring Physician Family Medicine 07/18/24 documented as of this encounter
--- OUTSIDE RECORDS SUMMARY | 2025-02-24 23:56 | XMS_ITS | Encounter Summary ---
Author Organization [facility] Address [address] [facility] [place] [address] Care Team Providers Care Instructor Traffic Safety Name Role Phone House, Charles Culver MD Primary Care Provider Gay De La Torre MD Unavailable Encounter Details Date Type Department Care Team (Late Contact Info) Description 04/07/2024 Clinisync Result Encounter [facility] External Department Unsolicited Luan Valdivia, DO [address] [facility] L[place]am [place], [place] [id number] Social History Tobacco Use Types Packs/Day Years [...] AM EDT Consult [facility] [address] [facility] 150 [place] [address] Terence Blum MD [address] [facility] 150 [place] [address] 03/19/2025 10:20 AM EDT Office Visit [facility] [address] [place] [address] Mary Grace Mejias MD [address] [facility] 130 [place] [address] 07/25/2025 11:00 AM EST Office Visit [facility] [address] [place] [address] Cynthia English MD [address] [place] [address] documented as of this encounter Procedures Procedure Name Priority Date/Time Associated Diagnosis Comments US BREAST BI LIMITED 04/07/2024 8:40 AM EST documented in this encounter Results * US BREAST BI LIMITED (04/07/2024 8:40 AM EST) Anatomical Region Laterality Modality Other 04/07/2024 8:40 AM EST Narrative 04/07/2024 8:41 AM EST [address] [address] Ultrasound Report Signed Patient: JONES PANIAGUA MR#: [id number] : 1980 Acct:[id number] Age/Sex: 43 / F ADM Date: 04/06/24 Loc: US Attending Dr: Luan Valdivia D.O. Ordering Physician: Luan Valdivia D.O. Date of Service: 04/06/24 Procedure(s): US breast BI limited Accession Number(s): [id number] cc: GAY DE LA TORRE ; Luan Valdivia D.O. Patient Name: JONES PANIAGUA MR#: [id number] : 1980 Exam Date: 04/06/2024 Ordering Doctor: [...] cancer at age 56. LOCATION: The [facility] BREAST COMPOSITION: There are scattered areas [...] Signed By: 04/07/24 0841 DD/ 0840 TD/TT: Continuous Improvement Facilitator: Procedure Note Radiology, Radiologist, MD - 04/07/2024 [place] [address] Ultrasound Report Signed Patient: JONES PANIAGUA BMR#: [id number] : 1980Acct:[id number] Age/Sex: 43 / FADM Date: 04/06/24 Loc: US Attending Dr: Luan Valdivia D.O. Ordering Physician: Luan Valdivia D.O. Date of Service: 04/06/24 Procedure(s): US breast BI limited Accession Number(s): [id number] cc: GAY DE LA TORRE ; Luan Valdivia D.O. Patient Name: JONES PANIAGUA MR#: [id number] : 1980 Exam Date: 04/06/2024 Ordering Doctor: DR Luan Valdivia . RADIOLOGY REPORT PROCEDURE: MM TOMOSYNTHESIS DIAGNOSTIC BI, 04/06/2024, 15:20 US BREAST BI LIMITED, 04/06/2024, 15:37 COMPARISON: MM TOMOSYNTHESIS SCREENING BI, 09/23/2023. MG MAMM [id number] MARK CAD, 09/01/2022. MG MAMM SCREEN 3D [...] cancer at age 56. LOCATION: The [facility] BREAST COMPOSITION: There are scattered areas [...] Vito Yusuf M.D. Signed By:04/07/2441 DD/ TD/TT: Continuous Improvement Facilitator: Luan Valdivia DO [facility] Final Result documented in this encounter Visit Diagnoses Not on filedocumented in this encounter Care Teams Instructor Traffic Safety Relationship Specialty Start Date End Date Charles Nicole MD PCP - General Family Medicine 02/09/24 07/17/24 Gay De La Torre MD [address] [place] [address] Referring Physician Family Medicine 07/18/24 documented as of this encounter
--- OUTSIDE RECORDS SUMMARY | 2025-02-24 23:56 | XMS_ITS | Clinical Summary ---
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 02/04 Steroid-induced [...] Dermatology [address] [place] [address] Cynthia English MD Pilonidal cyst (Primary Dx); Hidradenitis suppurativa 02/14/2025 Bamboo flowsheet [facility] [place] [facility] [address] [place] [address] Cynthia English MD 02/14/2025 Travel 01/30/2025 Results Follow-Up [facility] [address] [facility] [address] Sabi Barker LPN Left breast US limited 01/26/2025 11:45 AM EDT Ancillary Procedure [facility] [address] [place] [address] Other benign mammary dysplasias of left breast 01/26/2025 Travel 12/07/2024 Refill [facility] [address] [place] [address] Андрей Hearn, Eustachian tube dysfunction, bilateral; Non-recurrent acute serous otitis media of both ears 12/01/2024 Telephone [facility] [address] [facility] [address] Oly Plascencia PA 11/28/2024 Telephone [facility] [...] AM EDT Consult [facility] [address] [facility] 150 [place] [address] Terence Blum MD 703 [facility] 150 [place] [address] 03/19/2025 10:20 AM EDT Office Visit [facility] [address] [facility] 900 [place] [address] Mary Grace Mejias MD 112 [facility] 130 [place] [address] 07/25/2025 11:00 AM EST Office Visit [facility] [address] [place] [address] Cynthia English MD [address] [place] [address] Health Maintenance Due Date Last [...] EST Narrative 04/07/2024 8:41 [place] [address] Mammography Report Signed Patient: JONES PANIAGUA MR#: [id number] : 1980 Acct:[id number] Age/Sex: 43 / F ADM Date: 04/06/24 Loc: US Attending Dr: Luan Valdivia D.O. Ordering Physician: Luan Valdivia D.O. Results: Date of Service: 04/06/24 Follow Up: Procedure(s): MM tomosynthesis diagnostic BI Accession Number(s): [id number] cc: GAY ENCISO ; Luan Valdivia D.O. Patient Name: JONES PANIAGUA MR#: [id number] : 1980 Exam Date: 04/06/2024 Ordering Doctor: [...] Yusuf M.D. Signed By: 04/07/2441 DD/ TD/TT: Project Engineer Chemicals: Procedure Note Radiology, Radiologist, MD - 04/07/2024 [place] [address] Mammography Report Signed Patient: JONES PANIAGUA BMR#: [id number] : 1980Acct:[id number] Age/Sex: 43 / FADM Date: 04/06/24 Loc: US Attending Dr: Luan Valdivia D.O. Ordering Physician: Luan Valdivia D.O.Results: Date of Service: 04/06/24Follow Up: Procedure(s): MM tomosynthesis diagnostic BI Accession Number(s): [id number] cc: GAY ENCISO ; Luan Valdivia D.O. Patient Name: JONES PANIAGUA MR#: [id number] : 1980 Exam Date: 04/06/2024 Ordering Doctor: DR Luan Valdivia . RADIOLOGY REPORT PROCEDURE: MM TOMOSYNTHESIS DIAGNOSTIC BI, 04/06/2024, 15:20 US BREAST BI LIMITED, 04/06/2024, 15:37 COMPARISON: MM TOMOSYNTHESIS SCREENING BI, 09/23/2023. MG MAMM [id number] MARK CAD, 09/01/2022. MG MAMM SCREEN 3D [...] M.D. Signed By:04/07/24 0841 DD/ 0840 TD/TT: Project Engineer [employer]s: [facility] DO [facility] Final Result from Last 3 Months or Most Recently Relevant to Health Maintenance Insurance [employer] Care Teams Radiation Control Specialist Relationship Specialty Start Date End Date Gay Enciso MD [address] [place] [address] Referring Physician Family Medicine 07/18/24
--- OUTSIDE RECORDS SUMMARY | 2025-02-24 23:56 | XMS_ITS | Encounter Summary ---
Author Organization [facility] Address [address] [facility] [place] [address] Care Team Providers Care Banquet Supervisor Name Role Phone House, Charles Culver MD Primary Care Provider Gay De La Torre MD Unavailable [phone] Encounter Details Date Type Department Care Team (Late Contact Info) Description 06/14/2024 Clinisync Result Encounter [facility] External Department Unsolicited Oly Plascencia PA [address] [place] [address] [place] [address] Social History Tobacco Use Types [...] AM EDT Consult [facility] 7[address] [facility] 150 [place] [address] Terence Blum MD 703 [facility] 150 [place] [address] 03/19/2025 10:20 AM EDT Office Visit [facility] [address] [facility] 900 [place] [address] Mary Grace Mejias MD [address] [facility] 130 [place] [address] 07/25/2025 11:00 AM EST Office Visit [facility] [address] [place] [address] Cynthia English MD [address] [place] [address] documented as of this encounter Procedures Procedure Name Priority Date/Time Associated Diagnosis Comments MM TOMOSYNTHESIS DIAGNOSTIC LT 06/14/2024 4:14 PM EST documented in this encounter Results * MM TOMOSYNTHESIS DIAGNOSTIC LT (06/14/2024 4:14 PM EST) Anatomical Region Laterality Modality Other 06/14/2024 4:14 PM EST Narrative 06/14/2024 4:15 PM EST [address] [address] Mammography Report Signed Patient: JONES PANIAGUA MR#: [id number] : 1980 Acct:[id number] Age/Sex: 43 / F ADM Date: 06/14/24 Loc: MAMMO Attending Dr: Oly Plascencia Ordering Physician: Oly Plascencia Results: Date of Service: 06/14/24 Follow Up: Procedure(s): MM tomosynthesis diagnostic LT Accession Number(s): [id number] cc: Oly Plascencia; GAY DE LA TORRE Patient Name: JONES PANIAGUA MR#: [id number] : 1980 Exam Date: 06/14/2024 Ordering Doctor: [...] stomach cancer at age 56. LOCATION: The [facility] BREAST COMPOSITION: There are scattered areas [...] Signed By: 06/14/24 1615 DD/ 1614 TD/TT: Investigator Welfare: Procedure Note Radiology, Radiologist, MD - 06/14/2024 [place] [address] Mammography Report Signed Patient: JONES PANIAGUA BMR#: [id number] : 1980Acct:[id number] Age/Sex: 43 / FADM Date: 06/14/24 Loc: MAMMO Attending Dr: Oly Plascencia Ordering Physician: Oly PlascenciaResults: Date of Service: 06/14/24Follow Up: Procedure(s): MM tomosynthesis diagnostic LT Accession Number(s): [id number] cc: Oly Plascencia; GAY DE LA TORRE Patient Name: JONES PANIAGUA MR#: [id number] : 1980 Exam Date: 06/14/2024 Ordering Doctor: KELVIN Plascencia . RADIOLOGY REPORT PROCEDURE: MM TOMOSYNTHESIS DIAGNOSTIC LT COMPARISON: US BREAST LT LIMITED, 06/14/2024. MM TOMOSYNTHESISDIAGNOSTIC BI, 04/06/2024. MM TOMOSYNTHESIS SCREENING BI, 09/23/2023. MG MAMM [id number] MARK CAD, 09/01/2022. INDICATIONS: Left Axilla Nodule Calculator Name NCI Breast Cancer Risk Assessment Tool 5 Year Breast Cancer Risk 1.00% Lifetime Breast Cancer Risk 13.20% Personal Breast Cancer No Personal Ovarian Cancer No Treatments None Family Cancers Grandmother-paternal with breast cancer at age 67; Aunt-paternal with breast cancer at age 50; Father with stomach cancer at age 56. LOCATION: The [facility] BREAST COMPOSITION: There are scattered areas [...] Yusuf M.D. Signed By:06/14/245 DD/ 13 TD/TT: Investigator Welfare: us Oly WARREN [facility] Final Result documented in this encounter Visit Diagnoses Not on filedocumented in this encounter Care Teams Banquet Supervisor Relationship Specialty Start Date End Date Charles Nicole MD PCP - General Family Medicine 02/09/24 07/17/24 Gay De La Torre MD [address] [place] [address] Referring Physician Family Medicine 07/18/24 documented as of this encounter
--- NOTE | 2025-02-25 00:04 | ED.GENADUL1 ---
HPI HPI - General Adult General Chief complaint: Nausea/Vomiting/Diarrhea Stated complaint: possible cdiff Time Seen by Provider: 02/24/25 23:57 Source: patient Mode of arrival: walk-in History of Present Illness HPI narrative: 44-year-old female present for chief complaint of diarrhea. This started about 2 weeks ago which was about 2 weeks after finishing some antibiotics. No recent hospitalizations and she has had no blood in her stool. She states she has been about 10 separate trips to the bathroom today to have diarrhea. She is worried about having C. difficile, she has had it previously. Related Data Home Medications ?Medication ?Instructions ?Recorded ?Confirmed azathioprine 50 mg tablet 150 mg PO DAILY 12/18/22 04/15/24 ergocalciferol (vitamin D2) 1,250 1,250 mcg PO .3 times weekly 12/18/22 04/15/24 mcg (50,000 unit) capsule folic acid 1 mg tablet 1 mg PO DAILY 12/18/22 04/15/24 hydroxychloroquine 200 mg tablet 200 mg PO BID 12/18/22 04/15/24 metoprolol tartrate 25 mg tablet 200 mg PO Q12H 12/18/22 04/15/24 prednisone 10 mg tablet 10 mg PO DAILY 12/18/22 04/15/24 pregabalin 75 mg capsule 75 mg PO Q8H 12/18/22 04/15/24 metoprolol tartrate 50 mg tablet 200 mg PO DAILY 07/07/23 04/15/24 amlodipine 5 mg tablet 5 mg PO DAILY 04/15/24 04/15/24 cephalexin 500 mg capsule 500 mg PO Q12H 04/15/24 04/15/24 duloxetine 20 mg capsule,delayed 20 mg PO DAILY 04/15/24 04/15/24 release famotidine 20 mg tablet 20 mg PO BEDTIME 04/15/24 04/15/24 vancomycin 125 mg capsule mg 04/15/24 Previous Rx's ?Medication ?Instructions ?Recorded methocarbamol 750 mg tablet 750 mg PO TID PRN pain #12 tabs 04/15/24 hydrocodone 7.5 mg-acetaminophen 1 tab PO Q6H PRN pain #10 tabs 01/02/25 325 mg tablet methocarbamol 750 mg tablet 750 mg PO BID #14 tabs 01/02/25 Allergies Allergy/AdvReac Type Severity Reaction Status Date / Time sulfamethoxazole (From Allergy Unknown Verified 02/24/25 23:58 Sulfamethoxazole-Trimethoprim) trimethoprim (From Allergy Unknown Verified 02/24/25 23:58 Sulfamethoxazole-Trimethoprim) Bactrim Allergy Intermediate Unknown Uncoded 02/24/25 23:58 Opioid HPI Opioid Management Most Recent Opioid Data: Last Pain Scale 8 01/02/25, 02:09 Review of Systems ROS Narrative A ten point review of systems is negative except as noted above. PFSH PFSH Social History Smoking status: Current every day smoker Little interest or pleasure in doing things: not at all Feeling down, depressed, or hopeless: not at all Exam Narrative Exam Narrative: Nurses note and vital signs reviewed and patient is not hypoxic. General:The patient appears well and in no apparent distress.Patient is resting comfortably on cart. Skin:Warm, dry, no pallor noted.There is no rash noted. Head:Normocephalic, atraumatic Eye: Normal conjunctiva, no drainage Ears, Nose, Mouth, and Throat: oral mucosa is moist. Nares patent. Cardiovascular:Regular Rate and Rhythm Respiratory:Patient is in no distress, no accessory muscle use, lungs are clear to auscultation, no wheezing, rales or rhonchi Back:non-tender GI: Obese and nontender Musculoskeletal: The patient has no evidence of calf tenderness, no pitting edema, symmetrical pulses noted bilaterally Neurological:A&O, normal speech Psychiatric:Cooperative Constitutional Vital Signs, click to edit/add: Last Vital Signs Temp 98.7 F 02/24/25 23:53 Pulse 88 02/24/25 23:53 Resp 20 02/24/25 23:53 BP 142/84 H 02/24/25 23:53 Pulse Ox 97 02/24/25 23:53 Course Vital Signs Vital signs: Vital Signs Temperature 98.7 F 02/24/25 23:53 Pulse Rate 88 02/24/25 23:53 Respiratory Rate 20 02/24/25 23:53 Blood Pressure 142/84 H 02/24/25 23:53 Pulse Oximetry 97 02/24/25 23:53 Temperature 98.7 F 02/24/25 23:53 Pulse Rate 88 02/24/25 23:53 Respiratory Rate 20 02/24/25 23:53 Blood Pressure 142/84 H 02/24/25 23:53 Pulse Oximetry 97 02/24/25 23:53 Medical Decision Making MDM Narrative Medical decision making narrative: Her stool was too formed to run the test for C. difficile. At this point I do not suspect C. difficile. Stool cultures pending. She was given IV fluids which will likely correct her slight increase in anion gap and lactic acid. She will have these blood test repeated by her PCP next week. Treatment diagnosis and follow-up were discussed with the patient. At this point she does not require admission to the hospital. Differential Diagnosis Differential Diagnosis: C. difficile, diarrhea, dehydration Lab Data Lab results reviewed: Yes I reviewed the patient's lab results Labs: Lab Results 02/25/25 Range/Units 00:15 WBC 10.8 (4.0-11.0) 10^3/uL RBC 4.39 (4.20-5.40) 10^6/uL Hgb 14.3 (12.0-16.0) g/dL Hct 42.3 (36.0-48.0) % MCV 96.4 (81.0-99.0) fL MCH 32.6 (26.7-34.0) pg MCHC 33.8 (29.9-35.2) g/dL RDW 14.0 (11.0-15.0) % Plt Count 264 (150-450) 10^3/uL MPV 10.4 (9.5-13.5) fL Neut % (Auto) 79.7 H (43.0-75.0) % Lymph % (Auto) 12.5 L (20.5-60.0) % Zavala % (Auto) 5.2 (1.7-12.0) % Eos % (Auto) 0.6 L (0.9-7.0) % Baso % (Auto) 0.6 (0.2-2.0) % Neut # (Auto) 8.6 H (1.4-6.5) 10^3/uL Lymph # (Auto) 1.4 (1.2-3.8) 10^3/uL Zavala # (Auto) 0.6 (0.3-0.8) 10^3/uL Eos # (Auto) 0.1 (0.0-0.7) 10^3/uL Baso # (Auto) 0.1 (0.0-0.1) 10^3/uL Abs Immat Gran (auto) 0.15 H (0.00-0.03) 10^3/uL Imm/Tot Granulo (auto) 1.4 H (0.0-0.5) % Sodium 138 (136-145) mmol/L Potassium 4.2 (3.5-5.1) mmol/L Chloride 101 (98-107) mmol/L Carbon Dioxide 21.1 (21.0-32.0) mmol/L Anion Gap 20.1 BUN 17.0 (7.0-18.0) mg/dL Creatinine 0.81 (0.55-1.02) mg/dL Est GFR ( Amer) >60 (>=60 mL/min/1.73m^2) Est GFR (Non-Af Amer) >60 (>=60 mL/min/1.73m^2) BUN/Creatinine Ratio 21.0 Glucose 260 H (74-106) mg/dL Lactate 3.3 H* (0.4-2.0) mmol/L Calcium 9.3 (8.5-10.1) mg/dL Serum HCG, Qual Negative (NEGATIVE) Discharge Plan Discharge Chief Complaint: Nausea/Vomiting/Diarrhea Clinical Impression: Diarrhea Patient Disposition: Home, Self-Care Time of Disposition Decision: 00:44 Condition: Good Prescriptions / Home Meds: No Action azathioprine 50 mg tablet 150 mg PO DAILY ergocalciferol (vitamin D2) 1,250 mcg (50,000 unit) capsule 1,250 mcg PO .3 times weekly folic acid 1 mg tablet 1 mg PO DAILY hydroxychloroquine 200 mg tablet 200 mg PO BID metoprolol tartrate 25 mg tablet 200 mg PO Q12H prednisone 10 mg tablet 10 mg PO DAILY pregabalin 75 mg capsule 75 mg PO Q8H metoprolol tartrate 50 mg tablet 200 mg PO DAILY amlodipine 5 mg tablet 5 mg PO DAILY cephalexin 500 mg capsule 500 mg PO Q12H duloxetine 20 mg capsule,delayed release(DR/EC) 20 mg PO DAILY famotidine 20 mg tablet 20 mg PO BEDTIME vancomycin 125 mg capsule methocarbamol 750 mg tablet 750 mg PO TID PRN (Reason: pain) Qty: 12 0RF hydrocodone-acetaminophen 7.5-325 mg tablet 1 tab PO Q6H PRN (Reason: pain) Qty: 10 0RF methocarbamol 750 mg tablet 750 mg PO BID Qty: 14 0RF Print Language: Korean Instructions: Acute Diarrhea (ED) Additional Instructions: Follow-up with your PCP for repeat blood work if she feels it is needed. Referrals: SAMSON ENCISO [Primary Care Provider, Family Practice] - 1 week
[2025-02-25] MEDS: 0.9 % SODIUM CHLORIDE 1,000 ML 1000 ML IV (00:19)
[2025-02-25 00:21] LABS: Hematocrit 42.3 % (36.0-48.0); Hemoglobin 14.3 g/dL (12.0-16.0); Immature Granulocytes Abs Auto 0.15 10^3/uL (0.00-0.03); Immature Granulocytes Pct Auto 1.4 % (0.0-0.5); Lymphocytes Absolute Auto 1.4 10^3/uL (1.2-3.8); Mean Corpuscular HGB Conc 33.8 g/dL (29.9-35.2); Mean Corpuscular Hemoglobin 32.6 pg (26.7-34.0); Mean Corpuscular Volume 96.4 fL (81.0-99.0); Platelet Count 264 10^3/uL (150-450); Red Blood Count 4.39 10^6/uL (4.20-5.40); White Blood Count 10.8 10^3/uL (4.0-11.0)
[2025-02-25 00:28] LABS: Anion Gap 20.1; Blood Urea Nitrogen 17.0 mg/dL (7.0-18.0); Calcium 9.3 mg/dL (8.5-10.1); Carbon Dioxide 21.1 mmol/L (21.0-32.0); Chloride 101 mmol/L (98-107); Estimated GFR (African America >60 (>=60 mL/min/1.73m^2); Estimated GFR (Non-African Ame >60 (>=60 mL/min/1.73m^2); Glucose 260 mg/dL (74-106); Potassium 4.2 mmol/L (3.5-5.1); Sodium 138 mmol/L (136-145)
[2025-02-25 00:38] LABS: Lactate/Lactic Acid 3.3 mmol/L (0.4-2.0)
== END 2025-02-25 02:11 | disposition home or self-care (01) ==
PROVIDERS: Emergency Provider Emergency Medicine; PCP Nurse Practitioner Family
DX: R19.7 Diarrhea, unspecified (principal); R73.03 Prediabetes; Z79.899 Other long term (current) drug therapy
CPT/HCPCS: 36415; 80048; 80053; 83036; 83605; 84703; 85025; 87045; 87046; 87427; 87493; 96360; 96361; 99284

== ENCOUNTER 2025-02-26 15:17 | Outpatient (OUT) | payer OTHER, SELFPAY ==
--- OUTSIDE RECORDS SUMMARY | 2025-02-14 15:20 | XMS_ITS | Encounter Summary ---
Author Organization [facility] Healthcare Address [address] [place] [address] Care Team Providers Care Health And Wellness Coordinator Name Role Phone Gay De La Torre MD Unavailable [phone] Reason for Referral * Consultation (Routine) - Authorized Specialty Diagnoses / Procedures Referred By Nahid tran Referred To Contact General Surgery Diagnoses Pilonidal cyst Procedures [place] OFFICE/OUTPATIENT [facility] 60 MINUTES Cynthia English MD [address] [facility] 350 [place] [address] Phone: tel: fax: Terence Blum MD 703 [facility] 150 [place] [address] Phone: tel: fax: Referral ID Status Reason Start Date Expiration Date Visits Requested Visits Authorized [id number] Authorized Specialty Services Required 02/14/2025 08/13/2025 1 1 Reason for Visit * Reason Comments Follow-up Suspicious Skin Lesion Encounter Details Date Type Department Care Team (Late st Contact Info) Description 02/14/2025 3:20 PM EDT [facility] [address] [facility] [address] [place] [phone] Cynthia English MD [address] [facility] [address] [place] [address] Pilonidal cyst (Primary Dx); Hidradenitis [...] as of this encounter Progress Notes * yCnthia English MD - 02/14/2025 3:20 PM EDT [...] Associates [address] [facility] 150 [place] [phone] Terence Blum MD 703 [facility] 150 [place] [address] 03/19/2025 10:20 AM EDT Office Visit [facility] [address] [place] [phone] Mary Grace Mejias MD 112 [facility] 130 [place] [address] 07/25/2025 11:00 AM EST Office Visit [facility] [address] [place] [address] Cynthia English MD [address] [place] [address] Scheduled Referrals Name Type Priority [...] Other documented in this encounter Care Teams Health And Wellness Coordinator Relationship Specialty Start Date End Date Gay De La Torre MD [address] [place] [address] Referring Physician Family Medicine 07/18/24 documented as of this encounter
--- OUTSIDE RECORDS SUMMARY | 2025-02-21 09:00 | XMS_ITS | Encounter Summary ---
Author Organization [facility] Address [address] [place] [address] Care Team Providers Care Watershed Manager Name Role Phone Manuel Klein MD Unavailable [phone] Manuel Klein MD Primary Care Provider +-4 Manuel Klein MD Unavailable [phone] Source Comments In the event this information is protected by the Federal Confidentiality of Alcohol and Drug AbusePatient Records regulations: The Federal rules restrict any use of the information to criminally investigate or prosecute any alcohol or drug abuse patient.[facility] Reason for Visit * Reason Comments Hypogammaglobulinemia Treatment visit Encounter Details Date Type Department Care Team (Latest Contact Info) Description 02/21/2025 9:00 AM EDT Visit (SP) Office Hematology/Oncology [address] [facility] [address] Fara Lopez APRN.PIANO BENCH ASSEMBLER [address] [place] [address] Frequent infections (Primary Dx); Hypogammaglobulinemi a [...] is lower risk 4 09/24/2022 Data from: https://www.neighborhoodatlas.medicine.[facility]/. Last address used for calculation [address] 09/24/2022 Comments No Sex and Gender [...] Author Yes 12/25/2014 11:14 AM EDT Haroldo uw Chichi * Because of a physical, mental, [...] Date Author No 12/25/2014 11:14 AM EDT Zacro M aChichi documented in this encounter Progress Notes * Fara Lopez APRN.PIANO BENCH ASSEMBLER - 02/21/2025 9:00 AM EDT Images from the original note were not included. NAME: Ariadna Paniagua CLINIC NO.: [id number] DATE OF SERVICE: February 21, 2025 (John) [...] 1 on her buttocks. She saw a outside plant engineer who treated one with a steroid injection. [...] requiring a recent corticosteroid injection by her outside plant engineer. She experiences intermittent fatigue, shortness of breath, [...] lip done 2 days ago at [facility] - awaiting results. B12 helps [...] injections. Shefollows with multiple doctors including and terry cloth cutter hand, boring machine set up operator jig, outside plant engineer and PCP. She has been told they [...] one time a week. Per PCP^Disp: ^Rfl: mckayonfxaBPQHH-wybzcb-fwusqaxmr (BMX 1:1:1) 1:1:1 liqd^Take 5 mL by [...] which included preparing to see the patient, cquc-cx-etxm patient care, completing clinical documentation, obtaining and/or reviewing separately obtained history, performing a medically appropriate examination, counseling and educating the pat ient/family/caregiver, ordering medications, tests, or procedures, communicating with other HCPs (not separately reported), and independently interpreting results (not separately reported) . Fara Lopez APRN, NARRATIVE WRITER-C, O[facility] Provided at: [place], [place] CC: Manuel Klein MD [address] [facility] [address] documented in this encounter Plan of Treatment Upcoming Encounters Date Type Department Care Team (Latest Contact Info) Description 03/08/2025 2:00 PM EDT Infusion Center Hematology/Oncology [address] [facility] [place] [address] BENLYSTA - 03/21/2025 9:00 AM EDT Office Visit [facility] [address] [place] [address] 4 week follow up IVIG - pt to see MASON for this appt per Fara 03/21/2025 9:20 AM EDT Visit (SP) Office Hematology/Oncology [address] [place] [address] Jose Cho MD [address] [facility] [place] [address] 4 week follow up IVIG - pt to see MASON for this appt per Fara 03/21/2025 9:40 AM EDT Infusion Center Hematology/Oncology [address] [place] [address] Gabbi, Chair [address] [place] [address] 4 week follow up IVIG - pt to see MASON for this appt per Fara 04/05/2025 2:00 PM EST Infusion Center Hematology/Oncology [address] [place] [address] BENLYSTA - 05/03/2025 2:00 PM [facility] Infusion Center Hematology/Oncology [facility] [place] [address] BENLYSTA - documented as of this encounter Visit Diagnoses Diagnosis Frequent infections- Primary Hypogammaglobulinemia (HCC) Hypogammaglobulinaemia, unspecified Bilateral leg weakness Other musculoskeletal symptoms referable to limbs Discoid lupus erythematosus Lupus erythematosus Vitamin B12 deficiency Other B-complex deficiencies Shortness of breath Other iron deficiency anemia Malaise and fatigue Other malaise and fatigue documented in this encounter Care Teams Watershed Manager Relationship Specialty Start Date End Date Manuel Klein MD PCP - General Family Medicine 02/27/22 Manuel Klein MD Referring Family Medicine 02/12/22 Manuel Klein MD [address] [place] [address] Referring Family Medicine 07/06/24 documented as of this encounter
--- OUTSIDE RECORDS SUMMARY | 2025-02-21 09:30 | XMS_ITS | Encounter Summary ---
Author Organization [facility] Address [address] [place] [address] Care Team Providers Care Pathology Secretary Name Role Phone Manuel Klein MD Unavailable [phone] Manuel Klein MD Primary Care Provider +-4 Manuel Klein MD Unavailable [phone] Source Comments In the event this information is protected by the Federal Confidentiality of Alcohol and Drug AbusePatient Records regulations: The Federal rules restrict any use of the information to criminally investigate or prosecute any alcohol or drug abuse patient.[facility] Reason for Visit * [place] Prior Authorization (Routine) - Authorized Specialty Diagnoses / Procedures Referred By Contac t Referred To Contact Diagnoses Frequent infections Hypogammaglobulinemia (HCC) Bilateral leg weakness Discoid lupus erythematosus Procedures GAMMAGARD LIQUID INJECTION IMMUNE GLOBULIN INJECTION Jose Cho MD [address] [place] [address] [place] [address] Phone: tel: fax: Hematology/Oncology [address] [place] [address] [place] [address] Phone: tel: fax: Referral ID Status Reason Start Date Expiration Date Visits Requested Visits Authorized [id number] Authorized Patient Cleared - Admin/Chairm an/Director advise to proceed or did not respond 10/30/2024 10/30/2025 19 19 Encounter Details Date Type Department Care Team (Latest Contact Info) Description 02/21/2025 9:30 AM EDT Infusion Center Hematology/Oncology [address] [place] [address] [place] [address] Frequent infections (Primary Dx); Hypogammaglobulinemia (HCC); Bilateral [...] is lower risk 4 09/24/2022 Data from: https://www.neighborhoodatlas.medicine.[facility].edu/. Last address used for calculation [address] [place] [address] 09/24/2022 Comments No Sex and Gender Information [...] 02/21/2025 11:59 AM EDT Gamunex-C: Lot # [id number] EXP 05/02/27 = 20 G LOT# [id number] EXP 09/04/27 = 10 G LOT# [id number] EXP 06/19/27 = 5 G documented in this encounter Plan of Treatment Upcoming Encounters Date Type Department Care Team (Latest Contact Info) Description 03/08/2025 2:00 PM EDT [facility] Hematology/Oncology [address] [place] [address] BENLYSTA - 03/21/2025 9:00 AM EDT Office Visit [facility] Laboratory [address] [place] [address] 4 week follow up IVIG - pt to see MASON for this appt per Fara 03/21/2025 9:20 AM EDT Visit (SP) Office Hematology/Oncology [address] [place] [address] Jose Cho MD [address] [place] [address] 4 week follow up IVIG - pt to see MASON for this appt per Fara 03/21/2025 9:40 AM EDT Infusion Center Hematology/Oncology [address] [facility] [place] [address] Gabbi, Chair 4 [address] [facility] [place] [address] 4 week follow up IVIG - pt to see MASON for this appt per Fara 04/05/2025 2:[address] [facility] Infusion Center Hematology/Oncology [address] [facility] [place] [address] BENLYSTA - 05/03/2025 2:[address] [facility] Infusion Center Hematology/Oncology [address] [facility] [place] [address] BENLYSTA - documented as of this encounter [...] mL/hr documented in this encounter Care Teams Pathology Secretary Relationship Specialty Start Date End Date Manuel Klein MD PCP - General Family Medicine 02/27/22 Manuel Klein MD Referring Family Medicine 02/12/22 Manuel Klein MD [address] [place] [address] Referring Family Medicine 07/06/24 documented as of this encounter
--- OUTSIDE RECORDS SUMMARY | 2025-02-23 05:30 | XMS_ITS ---
Author Organization [facility] [place] Address [address] [place] [address] Care Team Providers Care Silvering Department Supervisor Name Role Phone Gay De La Torre Primary Care Provider Results Component Value Reference Range Notes GLYCOHEMOGLOBIN A1C Reviewed date:02/26/2025 09:22:15 AM Interpretation: Performing Lab: Notes/Report: [facility] , Glycohemoglobin A1C 8.3 4.5-6.2 % ADA RECOMMENDED LIMIT 4.0 - 6.0 ADA THERAPEUTIC TARGET < 7.0 ACTION SUGGESTED > 7.0 Estimated Average Glucose 192 Performing Lab: see note ML - [facility] LB REASON FOR VISIT labs from [facility] Encounters Encounter Location Date Provider Diagnosis [address] [address] 02/23/2025 Gay De La Torre Pre-diabetes R73.03 [...] * Ariadna PANIAGUA BDOB:1980 (44 yo F)Acc No.[id number]:02/23/2025 Patient: Ariadna MOORE :1980 A ge:44 Y S ex:Female Address:[address] [place] [address], [place], [address] Subjective: * Chief Complaints: * l abs [...] * Date: Generated for Rosalee bustillo/Alfred/Ritasmitting on: 1 03:21 PM EDT
--- OUTSIDE RECORDS SUMMARY | 2025-02-26 15:21 | XMS_ITS | Encounter Summary ---
Author Organization [facility] Address [address] [place] [address] Care Team Providers Care Market Development Specialist Name Role Phone Manuel Klein MD Unavailable [phone] Manuel Klein MD Primary Care Provider +-4 Manuel Klein MD Unavailable [phone] Source Comments In the event this information is protected by the Federal Confidentiality of Alcohol and Drug AbusePatient Records regulations: The Federal rules restrict any use of the information to criminally investigate or prosecute any alcohol or drug abuse patient.[facility] Encounter Details Date Type Department Care Team (Late st Contact Info) Description 03/18/2022 Get Medical Advice Allergy [address] [place] [phone] Misty Nelson MD [address] [place] [address] Test results Social History Tobacco Use [...] ot on file 08/09/2020 Data from: https://www.neighborhoodatlas.medicine.[facility]/. Last address used for calculation Not [...] 2:00 PM EDT Infusion Center Hematology/Oncology [address] [facility] [address] [place] [address] BENLYSTA - 03/21/2025 9:00 AM EDT Office Visit [facility] [address] [place] [address] 4 week follow up IVIG - pt to see MASON for this appt per [facility] 03/21/2025 9:20 AM EDT Visit (SP) Office Hematology/Oncology [address] [facility] [place] [address] Jose Cho MD [address] [facility] [place] [address] 4 week follow up IVIG - pt to see MASON for this appt per [facility] 03/21/2025 9:40 AM EDT Infusion Center Hematology/Oncology [address] [facility] [place] [address] Gabbi, Chair [address] [place] [address] 4 week follow up IVIG - pt to see MASON for this appt per [facility] 04/05/2025 2:00 PM EST Infusion Center Hematology/Oncology [address] [place] [address] BENLYSTA - 05/03/2025 2:00 PM [facility] Infusion Center Hematology/Oncology [address] [facility] [place] [address] BENLYSTA - documented as of this encounter Visit Diagnoses Not on filedocumented in this encounter Care Teams Market Development Specialist Relationship Specialty Start Date End Date Manuel Klein MD PCP - General Family Medicine 02/27/22 Manuel Klein MD Referring Family Medicine 02/12/22 Manuel Klein MD [address] [place] [address] Referring Family Medicine 07/06/24 documented as of this encounter
--- OUTSIDE RECORDS SUMMARY | 2025-02-26 15:21 | XMS_ITS | Encounter Summary ---
Author Organization [facility] Address [address] [place] [address] Care Team Providers Care Delivery Sales Worker Name Role Phone Gay De La Torre MD Unavailable [phone] Encounter Details Date Type Department Care Team (Late Contact Info) Description 02/14/2025 Bamboo flowsheet [facility] [address] [facility] [address] [place] [phone] Cynthia English MD [address] [facility] [address] [place] [address] Social History Tobacco Use Types Packs/Day Years [...] AM EDT Consult [facility] [address] [facility] [address] [place] [phone] Terence Blum MD 703 [facility] 150 [place] [address] 03/19/2025 10:20 AM EDT Office Visit [facility] [address] [place] [phone] Mary Grace Mejias MD [address] [facility] 130 [place] [address] 07/25/2025 11:00 AM EST Office Visit [facility] [address] [place] [address] Cynthia English MD [address] [place] [address] documented as of this encounter Visit Diagnoses Not on filedocumented in this encounter Care Teams Delivery Sales Worker Relationship Specialty Start Date End Date Gay De La Torre MD [address] [place] [address] Referring Physician Family Medicine 07/18/24 documented as of this encounter
--- OUTSIDE RECORDS SUMMARY | 2025-02-26 15:21 | XMS_ITS | Encounter Summary ---
Author Organization [facility] Address [address] [place] [address] Care Team Providers Care Vice President Of Software Development Name Role Phone Manuel Klein MD Unavailable [phone] Manuel Klein MD Primary Care Provider +-4 Manuel Klein MD Unavailable [phone] Source Comments In the event this information is protected by the Federal Confidentiality of Alcohol and Drug AbusePatient Records regulations: The Federal rules restrict any use of the information to criminally investigate or prosecute any alcohol or drug abuse patient.[facility] Encounter Details Date Type Department Care Team (Late st Contact Info) Description 07/09/2022 Get Medical Advice [facility] [address] [place] [address] Christie Phan MD [address] [place] [address] Cymbalta Social History Tobacco Use [...] on file 08/09/2020 Data from: https://www.neighborhoodatlas.medicine.[facility]/. Last address used for [...] Contact Info) Description 03/08/2025 2:00 PM EDT [facility] Hematology/Oncology [address] [place] [address] BENLYSTA - 03/21/2025 9:00 AM EDT Office Visit [facility] [address] [place] [address] [place] [address] 4 week follow up IVIG - pt to see MASON for this appt per [facility] 03/21/2025 9:20 AM EDT Visit (SP) Office Hematology/Oncology [address] [place] [address] Jose Cho MD [address] [place] [address] 4 week follow up IVIG - pt to see MASON for this appt per [facility] 03/21/2025 9:40 AM EDT Infusion Center Hematology/Oncology [address] [place] [address] Gabbi, Chair [address] [place] [address] 4 week follow up IVIG - pt to see MASON for this appt per [facility] 04/05/2025 2:00 PM EST Infusion Center Hematology/Oncology [address] [place] [address] BENLYSTA - 05/03/2025 2:00 PM EST Infusion Center Hematology/Oncology [address] [place] [address] BENLYSTA - documented as of this encounter Visit Diagnoses Not on filedocumented in this encounter Care Teams Vice President Of Software Development Relationship Specialty Start Date End Date Manuel Klein MD PCP - General Family Medicine 02/27/22 Manuel Klein MD Referring Family Medicine 02/12/22 Manuel Klein MD [address] [place] [address] Referring Family Medicine 07/06/24 documented as of this encounter
--- OUTSIDE RECORDS SUMMARY | 2025-02-26 15:21 | XMS_ITS | Encounter Summary ---
Author Organization [facility] Address [address] [facility] [place] [address] Care Team Providers Care Digital Production Manager Name Role Phone Gay De La Torre MD Unavailable [phone] Encounter Details Date Type Department Care [...] AM EDT Consult [facility] [address] [address] Terence Blum MD 703 [facility] 150 [place] [address] 03/19/2025 10:20 AM EDT Office Visit [facility] [address] [facility] [address] [place] [address] Mary Grace Mejias MD 112 [facility] 130 [place] [address] 07/25/2025 11:00 AM EST Office Visit [facility] [address] [place] [phone] Cynthia English MD [address] [place] [address] documented as of this encounter Visit Diagnoses Not on filedocumented in this encounter Care Teams Digital Production Manager Relationship Specialty Start Date End Date Gay De La Torre MD [address] [place] [address] Referring Physician Family Medicine 07/18/24 documented as of this encounter
--- OUTSIDE RECORDS SUMMARY | 2025-02-26 15:21 | XMS_ITS | Encounter Summary ---
Author Organization [facility] Address [address] [place] [address] Care Team Providers Care Salesperson Men'S Furnishings Name Role Phone Gay De La Torre(Historical) UNIT ASSEMBLER.NEEDLE GRINDER Primary Care Provider Unavailable Manuel Klein MD Unavailable [phone] Manuel Klein MD Primary Care Provider +- Manuel Klein MD Unavailable [phone] Source Comments In the event this information is protected by the Federal Confidentiality of Alcohol and Drug AbusePatient Records regulations: The Federal rules restrict any use of the information to criminally investigate or prosecute any alcohol or drug abuse patient.[facility] Encounter Details Date Type Department Care Team (Late st Contact Info) Description 08/13/2021 Patient Msg Rheumatology [address] [place] [address] Provider, Ccf Please Review Changes [...] on file 08/09/2020 Data from: https://www.neighborhoodatlas.medicine.[facility]/. Last address used for calculation Not [...] Info) Description 03/08/2025 2:00 PM EDT [facility] Hematology/Oncology [address] [facility] [place] [address] BENLYSTA - 03/21/2025 9:00 AM EDT Office Visit [facility] [address] [place] [address] 4 week follow up IVIG - pt to see MASON for this appt per [facility] 03/21/2025 9:20 AM EDT Visit (SP) Office Hematology/Oncology [address] [place] [address] Jose Cho MD [address] [place] [address] 4 week follow up IVIG - pt to see MASON for this appt per [facility] 03/21/2025 9:40 AM EDT Infusion Center Hematology/Oncology [address] [place] [address] Gabbi, Chair [address] [place] [address] 4 week follow up IVIG - pt to see MASON for this appt per [facility] 04/05/2025 2:00 PM EST Infusion Center Hematology/Oncology [address] [place] [address] BENLYSTA - 05/03/2025 2:00 PM [facility] Infusion Center Hematology/Oncology [address] [place] [address] BENLYSTA - documented as of this encounter Visit Diagnoses Not on filedocumented in this encounter Care Teams Salesperson Men'S Furnishings Relationship Specialty Start Date End Date Gay De La Torre(Historical), UNIT ASSEMBLER.NEEDLE GRINDER PCP - General Family Medicine 10/24/21 02/26/22 Manuel Klein MD PCP - General Family Medicine 02/27/22 Manuel Klein MD Referring Family Medicine 02/12/22 Manuel Klein MD [facility] [place] [address] Referring Family Medicine 07/06/24 documented as of this encounter
--- OUTSIDE RECORDS SUMMARY | 2025-02-26 15:21 | XMS_ITS | Encounter Summary ---
Author Organization [facility] Address [address] [place] [address] Care Team Providers Care Developer Programmer Name Role Phone Britt Gay(Historical) HYDRAULIC RIVETER.FORM PRESS OPERATOR Primary Care Provider Unavailable Manuel Klein MD Unavailable [phone] Manuel Klein MD Primary Care Provider +-4 Manuel Klein MD Unavailable [phone] Source Comments In the event this [...] Description 05/04/2021 Get Medical Advice Rheumatology [address] [facility] [address] [place], [place] [phone] Sandra Park MD [address] [place], [place] [phone] Lupus diagnosis from dermatology Social History Tobacco [...] N ot on file 08/09/2020 Data from: https://www.neighborhoodatlas.medicine.[facility]/. Last address used for calculation Not [...] [facility] [place] [address] BENLYSTA - 03/21/2025 9:00 AM EDT Office Visit [facility] [address] [place] [address] 4 week follow up IVIG - pt to see MASON for this appt per [facility] 03/21/2025 9:20 AM EDT Visit (SP) Office Hematology/Oncology [address] [facility] [place] [address] Jose Cho MD [address] [facility] [place] [address] 4 week follow up IVIG - pt to see MASON for this appt per [facility] 03/21/2025 9:40 AM EDT Infusion Center Hematology/Oncology [address] [facility] [place] [address] Gabbi, Chair [address] [facility] [place] [address] 4 week follow up IVIG - pt to see MASON for this appt per [facility] 04/05/2025 2:00 PM EST Infusion Center Hematology/Oncology [address] [facility] [place] [address] BENLYSTA - 05/03/2025 2:00 PM EST Infusion Center Hematology/Oncology [address] [facility] [place] [address] BENLYSTA - documented as of this encounter Visit Diagnoses Diagnosis CHRISTIAN positive- Primary Other and unspecified nonspecific immunological findings Other systemic lupus erythematosus with other organ involvement (HCC) documented in this encounter Care Teams Developer Programmer Relationship Specialty Start Date End Date Gay De La Torre(Historical), HYDRAULIC RIVETER.FORM PRESS OPERATOR PCP - General Family Medicine 10/24/21 02/26/22 Manuel Klein MD PCP - General Family Medicine 02/27/22 Manuel Klein MD Referring Family Medicine 02/12/22 Manuel Klein MD [address] [place] [address] Referring Family Medicine 07/06/24 documented as of this encounter
--- OUTSIDE RECORDS SUMMARY | 2025-02-26 15:21 | XMS_ITS | Encounter Summary ---
Author Organization [facility] Address [address] [place] [address] Care Team Providers Care Product Scientist Name Role Phone Manuel Klein MD Unavailable [phone] Manuel Klein MD Primary Care Provider +-4 Manuel Klein MD Unavailable [phone] Source Comments In the event this information is protected by the Federal Confidentiality of Alcohol and Drug AbusePatient Records regulations: The Federal rules restrict any use of the information to criminally investigate or prosecute any alcohol or drug abuse patient.[facility] Encounter Details Date Type Department Care Team (Late st Contact Info) Description 09/07/2022 Patient Msg Integrative and Lifestyle Medicine [address] [place] [address] Provider, Ccf Video Visit Social [...] N ot on file 08/09/2020 Data from: https://www.neighborhoodatlas.medicine.[facility]/. Last address [...] Info) Description 03/08/2025 2:00 PM EDT [facility] Hematology/Oncology [address] [place] [address] BENLYSTA - 03/21/2025 9:00 AM EDT Office Visit [facility] [address] [place] [address] 4 week follow up IVIG - pt to see MASON for this appt per Fara 03/21/2025 9:20 AM EDT Visit (SP) Office Hematology/Oncology [address] [place] [address] Jose Cho MD [address] [place] [address] 4 week follow up IVIG - pt to see MASON for this appt per Fara 03/21/2025 9:40 AM EDT Infusion Center Hematology/Oncology [address] [place] [address] Gabbi, Chair [address] [place] [address] 4 week follow up IVIG - pt to see MASON for this appt per Fara 04/05/2025 2:00 PM EST Infusion Center Hematology/Oncology [address] [place] [address] [place] [address] BENLYSTA - 05/03/2025 2:00 PM [facility] Infusion Center Hematology/Oncology [address] [place] [address] [place] [address] BENLYSTA - documented as of this encounter Visit Diagnoses Not on filedocumented in this encounter Care Teams Product Scientist Relationship Specialty Start Date End Date Manuel Klein MD PCP - General Family Medicine 02/27/22 Manuel Klein MD Referring Family Medicine 02/12/22 Manuel Klein MD [address] [place] [address] Referring Family Medicine 07/06/24 documented as of this encounter
--- OUTSIDE RECORDS SUMMARY | 2025-02-26 15:21 | XMS_ITS | Encounter Summary ---
Author Organization [facility] Address [address] [place] [address] Care Team Providers Care Senior Pensions Administrator Name Role Phone House, Charles Culver MD Primary Care Provider [phone] Gay De La Torre MD Unavailable [phone] Encounter Details Date Type Department Care Team (Late Contact Info) Description 09/29/2023 Clinisync Result Encounter [facility] External Department Unsolicited Zita Rogers, COLLECTION SUPERVISOR [address] [facility] [address] [address] Social History Tobacco Use Types Packs/Day Years [...] AM EDT Consult [facility] 703 [facility] 150 [place] [phone] Terence Blum MD 703 [facility] 150 [place] [address] 03/19/2025 10:20 AM EDT Office Visit [facility] [address] [facility] 900 [place] [address] Mary Grace Mejias MD 112 [facility] 130 [place] [address] 07/25/2025 11:00 AM EST Office Visit [facility] [address] [place] [address] Cynthia English MD [address] [place] [address] documented as of this encounter Procedures Procedure Name Priority Date/Time Associated Diagnosis Comments XR THORACIC SPINE 3V 09/29/2023 7:22 AM EDT documented in this encounter Results * XR THORACIC SPINE 3V (09/29/2023 7:22 AM EDT) Anatomical Region Laterality Modality Other 09/29/2023 7:22 AM EDT Narrative 09/29/2023 7:25 AM EDT [address] [address] XRay Report Signed Patient: JONES PANIAGUA MR#: [id number] : 1980 Acct:[id number] Age/Sex: 42 / F ADM Date: 09/28/23 Loc: RAD Attending Dr: ZITA ROGERS Ordering Physician: ZITA ROGERS Date of Service: 09/28/23 Procedure(s): XR thoracic spine 3V Accession Number(s): [id number] cc: GAY DE LA TORRE ; ZITA ROGERS The [address] [address] Patient Name: JONES PANIAGUA MRN: [id number] date: 1980 Sex: F Assigned Patient Location: RAD Current Patient Location: Accession/Order Number: [id number] Exam Date: 09/28/2023 14:43 Report Date: 09/29/2023 [...] M.D. Signed By: 09/29/2325 DD/ 1 TD/TT: Cellular Tower Climber: Procedure Note Radiology, Radiologist, MD - 09/29/2023 [place] [address] XRay Report Signed Patient: JONES PANIAGUA BMR#: [id number] : 1980Acct:[id number] Age/Sex: 42 / FADM Date: 09/28/23 Loc: [facility] Attending Dr: ZITA ROGERS Ordering Physician: ZITA ROGERS Date of Service: 09/28/23 Procedure(s): XR thoracic spine 3V Accession Number(s): [id number] cc: GAY DE LA TORRE ; ZITA ROGERS The [place] [address] Patient Name: JONES PANIAGUA MRN: [id number] date: 1980 Sex: F Assigned Patient Location: [facility] Current Patient Location: Accession/Order Number: [id number] Exam Date: 09/28/2023 14:43 Report Date: 09/29/2023 [...] Shaikh M.D. Signed By:09/29/23724 DD/ 1 TD/TT: Cellular Tower Climber: us Zita Rogers COLLECTION SUPERVISOR [facility] Final Result documented in this encounter Visit Diagnoses Not on filedocumented in this encounter Care Teams Senior Pensions Administrator Relationship Specialty Start Date End Date Charles Nicole MD PCP - General Family Medicine 02/09/24 07/17/24 Gay De La Torre MD [address] [place], [place] [address] Referring Physician Family Medicine 07/18/24 documented as of this encounter
--- OUTSIDE RECORDS SUMMARY | 2025-02-26 15:21 | XMS_ITS | Encounter Summary ---
Author Organization [facility] Address [address] [facility] [place] [address] Care Team Providers Care Geographic Information Systems Manager Name Role Phone House, Charles Culver MD Primary Care Provider [phone] Gay De La Torre MD Unavailable [phone] Encounter Details Date Type Department Care Team (Late Contact Info) Description 11/18/2023 Clinisync Result Encounter N[facility]S External Department Unsolicited Katy Valdivia, DO 102 [facility] [place]am [place], [place] [id number] Social History Tobacco Use Types Packs/Day Years [...] AM EDT Consult [facility] 703 [facility] 150 [place] [address] Terence Blum MD 7[address] [facility] 150 [place] [address] 03/19/2025 10:20 AM EDT Office Visit [facility] [address] [place] [address] Mary Grace Mejias MD [address] [place] [address] 07/25/2025 11:00 AM EST Office Visit [facility] [address] [place] [address] Cynthia English MD [address] [place] [address] documented as of this encounter Procedures [...] EDT Narrative 11/18/2023 4:42 PM EDT The [address] [address] Ultrasound Report Signed Patient: JONES PANIAGUA MR#: [id number] : 1980 Acct:[id number] Age/Sex: 43 / F ADM Date: 11/18/23 Loc: US Attending Dr: Katy Valdivia D.O. Ordering Physician: Katy Valdivia D.O. Date of Service: 11/18/23 Procedure(s): US pelvis w/ transvaginal Accession Number(s): [id number] cc: GAY DE LA TORRE ; Katy Valdivia D.O. The [place] [id number] Patient Name: JONES PANIAGUA MRN: [id number] date: 1980 Sex: F Assigned Patient Location: US Current Patient Location: US Accession/Order Number: [id number] Exam Date: 11/18/2023 14:00 Report Date: 11/18/2023 [...] Signed By: 11/18/23 1642 DD/ 1639 TD/TT: Manager Food Beverage: Procedure Note Radiology, Radiologist, MD - 11/18/2023 [place] [address] Ultrasound Report Signed Patient: JONES PANIAGUA BMR#: [id number] : 1980Acct:[id number] Age/Sex: 43 / FADM Date: 11/18/23 Loc: US Attending Dr: Katy Valdivia D.O. Ordering Physician: Katy Valdivia D.O. Date of Service: 11/18/23 Procedure(s): US pelvis w/ transvaginal Accession Number(s): [id number] cc: GAY DE LA TORRE ; Katy Valdivia D.O. [place] [address] Patient Name: JONES PANIAGUA MRN: [facility]:[id number] date: 1980 Sex: F Assigned Patient Location: US Current Patient Location: US Accession/Order Number: [id number] Exam Date: 11/18/2023 14:00 Report Date: 11/18/2023 [...] M.D. Signed By:11/18/23 1642 DD/ 1639 TD/TT: Manager Food Beverage: us Katy Valdivia DO [facility] Final Result * (ABNORMAL) ALL DEHYDROEPIANDROSTERONE (11/18/2023 3:04 PM EDT) DHEA, SERUM 25(A) 31 - 701 ng/dL [facility] Comment: This test was developed and its performance characteristics determined by [employer] [employer]. It has not been cleared or approved by the Food and Drug Administration. Performed at: [address] [id number] Beadworker: Senait Hardin MD, Phone: [phone] 11/18/2023 3:04 PM EDT 11/18/2023 3:14 PM EDT Narrative [facility] - 11/23/2023 12:10 PM EDT Katy Skip DO [facility] Final Result [facility] * (ABNORMAL) [facility] PROLACTIN (11/18/2023 3:04 PM EDT) PROLACTIN 4.7(A) 4.8 - 33.4 ng/mL [facility] Comment: Performed at: [address] [id number] Beadworker: Doyle Mendenhall PhD, Phone: [phone] 11/18/2023 3:04 PM EDT 11/18/2023 3:14 PM EDT Narrative [facility] - 11/19/2023 4:07 AM EDT Katy Skip DO [facility] Final Result Performing Organization Address City/[facility] Co de Phone Number [facility] * [...] EDT Katy Skip DO [facility] Final Result [facility] TB * ALL LUTEINIZING HORMONE (11/18/2023 3:04 PM EDT) LUTEINIZING HORMONE(LH) 24.9 . mIU/mL [facility] Comment: Adult Female Range Follicular phase 2.4 - 12.6 Ovulation phase 14.0 - 95.6 Luteal phase 1.0 - 11.4 Postmenopausal 7.7 - 58.5 11/18/2023 3:04 PM EDT 11/18/2023 3:14 PM EDT Narrative [facility] - 11/19/2023 4:07 AM EDT Katy Skip DO [facility] Final Result Performing Organization Address [facility] Co de Phone Number [facility] TB * (ABNORMAL) ALL DHEA SULFATE (11/18/2023 3:04 PM EDT) DHEA-SULFATE 15.4(A) 57.3 - 279.2 ug/dL [facility] 11/18/2023 3:04 PM EDT 11/18/2023 3:14 PM EDT Narrative [facility] - 11/19/2023 4:07 AM EDT Katy Skip DO [facility] Final Result Performing Organization Address [facility] Co de Phone Number [facility] documented in this encounter Visit Diagnoses Not on filedocumented in this encounter Care Teams Geographic Information Systems Manager Relationship Specialty Start Date End Date Charles Nicole MD PCP - General Family Medicine 02/09/24 07/17/24 Gay De La Torre MD [address] [place] [address] Referring Physician Family Medicine 07/18/24 documented as of this encounter
--- OUTSIDE RECORDS SUMMARY | 2025-02-26 15:21 | XMS_ITS | Encounter Summary ---
Author Organization [facility] Address [address] [facility] [place] [address] Care Team Providers Care Manager Planning Name Role Phone Gay De La Torre MD Unavailable [phone] Encounter Details Date Type Department Care Team (Latest Contact Info) Description 02/26/2025 Travel Social History Tobacco Use Types Packs/Day [...] AM EDT Consult [facility] [address] [address] Terence Blum MD 703 [facility] 150 [place] [address] 03/19/2025 10:20 AM EDT Office Visit [facility] [address] [facility] 900 [place] [address] Mary Grace Mejias MD 112 [facility] 130 [place] [address] 07/25/2025 11:00 AM EST Office Visit [facility] [address] [place] [address] Cynthia English MD [address] [place] [address] documented as of this encounter Visit Diagnoses Not on filedocumented in this encounter Care Teams Manager Planning Relationship Specialty Start Date End Date Gay De La Torre MD [address] [place] [address] Referring Physician Family Medicine 07/18/24 documented as of this encounter
--- OUTSIDE RECORDS SUMMARY | 2025-02-26 15:21 | XMS_ITS | Encounter Summary ---
Author Organization [facility] Address [address] [facility] [place] [address] Care Team Providers Care Cane Weigher Name Role Phone Gay De La Torre MD Unavailable [phone] Encounter Details Date Type Department Care Team (Late st Contact Info) Description 01/30/2025 Results Follow-Up [facility] [address] [place] [address] Sabi Barker LPN [address] [employer] [place] [id number] Left breast US limited Social History Tobacco [...] Consult [facility] [address] [facility] 150 [place] [address] Terence Blum MD 703 [facility] [address] [place] [address] 03/19/2025 10:20 AM EDT Office Visit [facility] [address] [place] [address] Mary Grace Mejias MD 112 [facility] 130 [place] [address] 07/25/2025 11:00 AM EST Office Visit [facility] [address] [place] [address] Cynthia English MD [address] [place] [address] documented as of this encounter Visit Diagnoses Not on filedocumented in this encounter Care Teams Cane Weigher Relationship Specialty Start Date End Date Gay De La Torre MD [address] [place] [address] Referring Physician Family Medicine 07/18/24 documented as of this encounter
--- OUTSIDE RECORDS SUMMARY | 2025-02-26 15:21 | XMS_ITS | Encounter Summary ---
Author Organization [facility] Address [address] [place] [address] Care Team Providers Care Assistant Professor Of English Name Role Phone Manuel Klein MD Unavailable [phone] Manuel Klein MD Primary Care Provider +-4 Manuel Klein MD Unavailable [phone] Source Comments In the event this information is protected by the Federal Confidentiality of Alcohol and Drug AbusePatient Records regulations: The Federal rules restrict any use of the information to criminally investigate or prosecute any alcohol or drug abuse patient.[facility] Encounter Details Date Type Department Care Team (Late st Contact Info) Description 05/05/2022 Patient Msg Home Respiratory Therapy [address] [place] [address] [place] [id number] Jami Rivera, PSS PAP Referral Delay Social [...] N ot on file 08/09/2020 Data from: https://www.neighborhoodatlas.medicine.[facility]/. Last address used for calculation Not [...] EDT [facility] Hematology/Oncology [address] [facility] [address] BENLYSTA - 03/21/2025 9:00 AM EDT Office Visit [facility] [address] [facility] [address] 4 week follow up IVIG - pt to see MASON for this appt per Fara 03/21/2025 9:20 AM EDT Visit (SP) Office Hematology/Oncology [address] [facility] [place] [address] Jose Coh MD [address] [facility] [place] [address] 4 week follow up IVIG - pt to see MASON for this appt per Fara 03/21/2025 9:40 AM EDT Infusion Center Hematology/Oncology [address] [facility] [address] Gabbi, Chair 4 [address] [facility] [place] [address] 4 week follow up IVIG - pt to see MASON for this appt per Fara 04/05/2025 2:00 PM EST Infusion Center Hematology/Oncology [address] [place] [address] BENLYSTA - 05/03/2025 2:00 PM [facility] Infusion Center Hematology/Oncology [address] [facility] [place] [address] BENLYSTA - documented as of this encounter Visit Diagnoses Not on filedocumented in this encounter Care Teams Assistant Professor Of English Relationship Specialty Start Date End Date Manuel Klein MD PCP - General Family Medicine 02/27/22 Manuel Klein MD Referring Family Medicine 02/12/22 Manuel Klein MD [address] [place] [facility] [place] [address] Referring Family Medicine 07/06/24 documented as of this encounter
--- OUTSIDE RECORDS SUMMARY | 2025-02-26 15:21 | XMS_ITS | Clinical Summary ---
Author Organization [facility] Address [address] [place] [address] Care Team Providers Care Acid Washer Operator Name Role Phone Gay De La Torre CNP Primary Care Provider [phone] Allergies Active Allergy Reactions Criticality Noted Date [...] 06/01/2023 Tachycardia 06/01/2023 Bilateral wrist pain 02/04/2023 software technical lead 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 02/04 Raynaud's [...] topic Insurance [employer] [place] [employer] Care Teams Acid Washer Operator Relationship Specialty Start Date End Date Gay De La Torre CNP [facility], [facility] [place] [phone] PCP - General Family Medicine 03/01/24
--- OUTSIDE RECORDS SUMMARY | 2025-02-26 15:21 | XMS_ITS | Encounter Summary ---
Author Organization [facility] Address [address] [facility] [place] [address] Care Team Providers Care Cross Tie Tram Loader Name Role Phone Gay De La Torre MD Unavailable [phone] Encounter Details Date Type Department Care [...] AM EDT Consult [facility] [address] [address] Terence Blum MD 703 [facility] 150 [place] [address] 03/19/2025 10:20 AM EDT Office Visit [facility] [address] [facility] 900 [place] [address] Mary Grace Mejias MD 112 [facility] 130 [place] [address] 07/25/2025 11:00 AM EST Office Visit [facility] [address] [place] [address] Cynthia English MD [address] [place] [address] documented as of this encounter Visit Diagnoses Not on filedocumented in this encounter Care Teams Cross Tie Tram Loader Relationship Specialty Start Date End Date Gay De La Torre MD [address] [place] [address] Referring Physician Family Medicine 07/18/24 documented as of this encounter
--- OUTSIDE RECORDS SUMMARY | 2025-02-26 15:21 | XMS_ITS | Encounter Summary ---
Author Organization [facility] Address [address] [facility] [place] [address] Care Team Providers Care Rn Advanced Name Role Phone Gay De La Torre MD Unavailable [phone] Reason for Visit * Reason Comments Med Refill Encounter Details Date Type Department Care Team (Late Contact Info) Description 12/07/2024 Refill [facility] [address] [facility] 120 [place] [phone] Андрей Hearn DO [address] [facility] [address] [place] [address] Eustachian tube dysfunction, bilateral; Non-recurrent acute serous [...] [facility] 703 [facility] 150 [place] [address] Terence Blum MD 7[address] [facility] 150 [place] [address] 03/19/2025 10:20 AM EDT Office Visit [facility] [address] [place] [address] Mary Grace Mejias MD 112 [facility] 130 [place] [address] 07/25/2025 11:00 AM EST Office Visit [facility] [address] [place] [address] Cynthia English MD [address] [place] [address] documented as of this encounter Visit Diagnoses Diagnosis Eustachian tube dysfunction, bilateral Non-recurrent acute serous otitis media of both ears documented in this encounter Care Teams Rn Advanced Relationship Specialty Start Date End Date Gay De La Torre MD [address] [place] [address] Referring Physician Family Medicine 07/18/24 documented as of this encounter
--- OUTSIDE RECORDS SUMMARY | 2025-02-26 15:21 | XMS_ITS | Encounter Summary ---
Author Organization [facility] Address [address] [facility] [place] [address] Care Team Providers Care Data Analyst Etl Developer Name Role Phone Gay De La [...] AM EDT Consult [facility] [address] [address] Terence Blum MD 703 [facility] 150 [place] [address] 03/19/2025 10:20 AM EDT Office Visit [facility] [address] [facility] 900 [place] [address] Mary Grace Mejias MD 112 [facility] 130 [place] [address] 07/25/2025 11:00 AM EST Office Visit [facility] [address] [place] [address] Cynthia English MD [address] [place] [address] documented as of this encounter Visit Diagnoses Not on filedocumented in this encounter Care Teams Data Analyst Etl Developer Relationship Specialty Start Date End Date Gay De La Torre MD [address] [place] [address] Referring Physician Family Medicine 07/18/24 documented as of this encounter
--- OUTSIDE RECORDS SUMMARY | 2025-02-26 15:21 | XMS_ITS | Encounter Summary ---
Author Organization [facility] Address [address] [place] [address] Care Team Providers Care Plastic Surgery Assistant Name Role Phone Manuel Klein MD Unavailable [phone] Manuel Klein MD Primary Care Provider +-4 Manuel Klein MD Unavailable [phone] Source Comments In the event this information is protected by the Federal Confidentiality of Alcohol and Drug AbusePatient Records regulations: The Federal rules restrict any use of the information to criminally investigate or prosecute any alcohol or drug abuse patient.[facility] Encounter Details Date Type Department Care Team (Late st Contact Info) Description 07/09/2022 Patient Msg [facility] [address] [place] [address] Christie Phan MD [address] [place] [address] Appointment Follow-UP Social [...] on file 08/09/2020 Data from: https://www.neighborhoodatlas.medicine.[facility]/. Last address [...] PM EDT [facility] Hematology/Oncology [address] [facility] [place] [address] BENLYSTA - 03/21/2025 9:00 AM EDT Office Visit [facility] [address] [place] [address] [place] [address] 4 week follow up IVIG - pt to see MASON for this appt per [facility] 03/21/2025 9:20 AM EDT Visit (SP) Office Hematology/Oncology [address] [facility] [place] [place] [address] Jose Cho MD [address] [facility] [place] [address] 4 week follow up IVIG - pt to see MASON for this appt per [facility] 03/21/2025 9:40 AM EDT Infusion Center Hematology/Oncology [address] [facility] [place] [address] [place], Chair 4 [address] [facility] [place] [address] 4 week follow up IVIG - pt to see MASON for this appt per [facility] 04/05/2025 2:00 PM EST Infusion Center Hematology/Oncology [address] [facility] [place] [address] BENLYSTA - 05/03/2025 2:00 PM EST Infusion Center Hematology/Oncology [address] [facility] [place] [address] BENLYSTA - documented as of this encounter Visit Diagnoses Not on filedocumented in this encounter Care Teams Plastic Surgery Assistant Relationship Specialty Start Date End Date Manuel Klein MD PCP - General Family Medicine 02/27/22 Manuel Klein MD Referring Family Medicine 02/12/22 Manuel Klein MD [address] [place] [address] Referring Family Medicine 07/06/24 documented as of this encounter
--- OUTSIDE RECORDS SUMMARY | 2025-02-26 15:21 | XMS_ITS | Encounter Summary ---
Author Organization [facility] Address [address] [place] [address] Care Team Providers Care Courtroom Reporter Name Role Phone Manuel Klein MD Unavailable [phone] Manuel Klein MD Primary Care Provider +-4 Manuel Klein MD Unavailable [phone] Source Comments In the event this [...] 02/27/2022 Get Medical Advice Infectious Disease [address] [place] [address] Tiffany Head DO [address] [place] [address] Blood work Social History Tobacco [...] N ot on file 08/09/2020 Data from: https://www.neighborhoodatlas.medicine.[facility]/. Last address used for [...] EDT [facility] Hematology/Oncology [address] [place] [address] BENLYSTA - 03/21/2025 9:00 AM EDT Office Visit [facility] [address] [place] [address] [place] [address] 4 week follow up IVIG - pt to see MASON for this appt per [facility] 03/21/2025 9:20 AM EDT Visit (SP) Office Hematology/Oncology [address] [place] [address] Jose Cho MD [address] [place] [address] 4 week follow up IVIG - pt to see MASON for this appt per [facility] 03/21/2025 9:40 AM EDT Infusion Center Hematology/Oncology [address] [place] [address] Gabbi, Chair [address] [place] [address] 4 week follow up IVIG - pt to see MASON for this appt per [facility] 04/05/2025 2:00 PM EST Infusion Center Hematology/Oncology [address] [place] [address] BENLYSTA - 05/03/2025 2:00 PM EST Infusion Center Hematology/Oncology [address] [place] [address] BENLYSTA - documented as of this encounter Visit Diagnoses Not on filedocumented in this encounter Care Teams Courtroom Reporter Relationship Specialty Start Date End Date Manuel Klein MD PCP - General Family Medicine 02/27/22 Manuel Klein MD Referring Family Medicine 02/12/22 Manuel Klein MD [address] [place] [address] Referring Family Medicine 07/06/24 documented as of this encounter
--- OUTSIDE RECORDS SUMMARY | 2025-02-26 15:21 | XMS_ITS | Clinical Summary ---
Author Organization [facility] Address [address] [place] [address] Phone Care Team Providers Care Assistant Store Director Name Role Phone Mitali, Michelle London STEEL BOX TOE INSERTER-HELPER COORDINATOR Unavailable [phone] Kenneth Patel MD Unavailable [phone] Gay De La Torre STEEL BOX TOE INSERTER-HELPER COORDINATOR Primary Care Provider Allergies Active Allergy Reactions [...] 10/24/19 Active ergocalciferol (Vitamin D-2) 1.25 MG (10987 UT) capsule Take 1 capsule (50,000 Units) [...] Description 07/26/2025 11:00 AM EST Office Visit [facility] [address] [facility] [address] [place] [address] Lois Arguelles MD [address] [facility] [address] [place] [address] Health Maintenance Due Date Last [...] Name Priority Date/Time Associated Diagnosis Comments CONVERTED COMPUTER MECHANIC CYTOLOGY Routine 05/04/2008 12:00 AM EST from Last 3 Months or Most Recently Relevant to Health Maintenance Results * CONVERTED COMPUTER MECHANIC CYTOLOGY (05/04/2008 12:00 AM EST) Pathology Report [...] clinical findings. - Signed by: JESSICA ORTIZ [facility] 05/09/08 Electronically Signed Out By [facility], Cytology/ By the signature on [...] Source of Specimen A: Unknown Part Type [facility] Department of Pathology [address] COPATH CONVERTED FINAL DIAGNOSIS Satisfactory for [...] clinical findings. - Signed by: JESSICA ORTIZ [facility] 05/09/08 [facility] COPATH CONVERTED CLINICAL DIAGNOSIS-HIST ORY - HISTORY & COMMENTS LMP: 02/14/08 Reflex HPV ordered if result is [facility] LinQpayATH CONVERTED SLIDE-BLOCK DESCRIPTION - TISSUES - 1. CERVICAL THIN PREP - [facility] CONVERTED REPORT COMMENTS [place] Case # [id number] DOS: 05/04/08 - ORD PHYSICIAN: Jose Blackburn MD - ORD PROCEDURES - CYTO PAP TLP MAN / - COPIES TO: Jose Blackburn MD - Status History - ENT 05/07/08 1128 [address] [facility] DIAG 05/09/08 0750 JESSICA ORTIZ 05/09/08 1524 JESSICA ORTIZ - [place] Conversion Report - [facility] CONVERTED FINAL REPORT PDF LINK TO COPY AND PASTE \copathshare\copa th\PDF \[id number].pdf [facility] Unrecognized Part Type 05/04/2008 05/07/2008 11:28 AM EST us Copath Conversion LAB CYTOLOGY ORDERABLES Final Result [facility] COPATH [address] [place] [address] from Last 3 Months or Most Recently Relevant to Health Maintenance Insurance [facility] Care Teams Assistant Store Director Relationship Specialty Start Date End Date Gay De La Torre APRN-HELPER COORDINATOR [address] [id number] PCP - General 07/13/23 Michelle Jasmine APRN-HELPER COORDINATOR Nurse Practitioner Cardiology 06/08/23 Kenneth Patel MD Consulting Physician Cardiology 06/23/23
--- OUTSIDE RECORDS SUMMARY | 2025-02-26 15:21 | XMS_ITS | Encounter Summary ---
Author Organization [facility] Address [address] [place] [address] Care Team Providers Care Bridge Painter Name Role Phone Britt, Gay(Historical) SHIFT MECHANIC.VISUAL COMMUNICATIONS INSTRUCTOR Primary Care Provider Unavailable Manuel Klein MD Unavailable [phone] Manuel Klein MD Primary Care Provider +-4 Manuel Klein MD Unavailable [phone] Source Comments In the event this information is protected by the Federal Confidentiality of Alcohol and Drug AbusePatient Records regulations: The Federal rules restrict any use of the information to criminally investigate or prosecute any alcohol or drug abuse patient.[facility] Encounter Details Date Type Department Care Team (Late st Contact Info) Description 02/24/2022 Get Medical Advice Infectious Disease [address] [place] [address] Tiffany Head DO [address] [place] [address] Test results Social History Tobacco [...] file 08/09/2020 Data from: https://www.neighborhoodatlas.medicine.[facility]/. Last address used for calculation [...] EDT [facility] Center Hematology/Oncology [address] [place] [address] [place] [address] BENLYSTA - 03/21/2025 9:00 AM EDT Office Visit [facility] Laboratory [address] [place] [address] 4 week follow up IVIG - pt to see MASON for this appt per [facility] 03/21/2025 9:20 AM EDT Visit (SP) Office Hematology/Oncology [address] [place] [address] Jose Cho MD [address] [place] [address] 4 week follow up IVIG - pt to see MASON for this appt per [facility] 03/21/2025 9:40 AM EDT Infusion Center Hematology/Oncology [address] [place] [address] Gabbi, Chair [address] [place] [address] 4 week follow up IVIG - pt to see MASON for this appt per [facility] 04/05/2025 2:00 PM EST Infusion Center Hematology/Oncology [address] [place] [address] BENLYSTA - 05/03/2025 2:00 PM [facility] Infusion Center Hematology/Oncology [address] [facility] [place] [address] BENLYSTA - documented as of this encounter Visit Diagnoses Not on filedocumented in this encounter Care Teams Bridge Painter Relationship Specialty Start Date End Date Gay De La Torre(Historical), SHIFT MECHANIC.VISUAL COMMUNICATIONS INSTRUCTOR PCP - General Family Medicine 10/24/21 02/26/22 Manuel Klein MD PCP - General Family Medicine 02/27/22 Manuel Klein MD Referring Family Medicine 02/12/22 Manuel Klein MD [address] [facility] [place] [address] Referring Family Medicine 07/06/24 documented as of this encounter
--- OUTSIDE RECORDS SUMMARY | 2025-02-26 15:21 | XMS_ITS | Encounter Summary ---
Author Organization [facility] Address [facility] [place] [address] Care Team Providers Care Business Management Intern Name Role Phone Manuel Klein MD Unavailable [phone] Manuel Klein MD Primary Care Provider +-4 Manuel Klein MD Unavailable [phone] Source Comments In the event this information is protected by the Federal Confidentiality of Alcohol and Drug AbusePatient Records regulations: The Federal rules restrict any use of the information to criminally investigate or prosecute any alcohol or drug abuse patient.[facility] Encounter Details Date Type Department Care Team (Late st Contact Info) Description 07/27/2022 Patient Msg Neurology [address] [place] [address] Lexus Heck APRN.[place] [id number] Sleep Follow up Social History Tobacco Use [...] N ot on file 08/09/2020 Data from: https://www.neighborhoodatlas.medicine.[facility]/. Last address used for calculation Not [...] Info) Description 03/08/2025 2:00 PM EDT [facility] Center Hematology/Oncology [address] [place] [address] BENLYSTA - 03/21/2025 9:00 AM EDT Office Visit [facility] Laboratory [address] [place] [address] [place] [address] 4 week follow up IVIG - pt to see MASON for this appt per [facility] 03/21/2025 9:20 AM EDT Visit (SP) Office Hematology/Oncology [address] [place] [address] Jose Cho MD [address] [place] [address] 4 week follow up IVIG - pt to see MASON for this appt per [facility] 03/21/2025 9:40 AM EDT Infusion Center Hematology/Oncology [address] [place] [address] Gabbi, Chair [address] [place] [address] 4 week follow up IVIG - pt to see MASON for this appt per [facility] 04/05/2025 2:00 PM EST Infusion Center Hematology/Oncology [address] [place] [address] BENLYSTA - 05/03/2025 2:00 PM [facility] Infusion Center Hematology/Oncology [address] [place] [address] BENLYSTA - documented as of this encounter Visit Diagnoses Not on filedocumented in this encounter Care Teams Business Management Intern Relationship Specialty Start Date End Date Manuel Klein MD PCP - General Family Medicine 02/27/22 Manuel Klein MD Referring Family Medicine 02/12/22 Manuel Klein MD [address] [place] [address] Referring Family Medicine 07/06/24 documented as of this encounter
--- OUTSIDE RECORDS SUMMARY | 2025-02-26 15:21 | XMS_ITS | Encounter Summary ---
Author Organization [facility] Address [address] [place] [address] Care Team Providers Care Lab Animal Technologist Name Role Phone House, Charles Culver MD Primary Care Provider [phone] Gay De La Torre MD Unavailable [phone] Encounter Details Date Type Department Care Team (Late Contact Info) Description 09/29/2023 Clinisync Result Encounter [facility] External Department Unsolicited Zita Rogers, SUPERVISOR FRONT [address] [facility] [address] [address] Social History Tobacco Use Types Packs/Day Years [...] [facility] [address] [place] [id number] Terence Blum MD [address] [facility] [address] [place] [address] 03/19/2025 10:20 AM EDT Office Visit [facility] [address] [facility] [address] [place] [address] Mary Grace Mejias MD [address] [facility] [address] [place] [address] 07/25/2025 11:00 AM EST Office Visit [facility] [address] [place] [address] Cynthia English MD [address] [place] [address] documented as of this encounter Procedures Procedure Name Priority Date/Time Associated Diagnosis Comments XR LUMBAR SPINE MIN 4V 09/29/2023 7:22 AM EDT documented in this encounter Results * XR LUMBAR SPINE MIN 4V (09/29/2023 7:22 AM EDT) Anatomical Region Laterality Modality Other 09/29/2023 7:22 AM EDT Narrative 09/29/2023 7:25 AM EDT [address] [address] XRay Report Signed Patient: JONES PANIAGUA MR#: [id number] : 1980 Acct:[id number] Age/Sex: 42 / F ADM Date: 09/28/23 Loc: RAD Attending Dr: ZITA ROGERS Ordering Physician: ZITA ROGERS Date of Service: 09/28/23 Procedure(s): XR lumbar spine min 4V Accession Number(s): [id number] cc: GAY DE LA TORRE ; ZITA ROGERS The [address] [address] Patient Name: JONES PANIAGUA MRN: [id number] date: 1980 Sex: F Assigned Patient Location: RAD Current Patient Location: Accession/Order Number: [id number] Exam Date: 09/28/2023 14:41 Report Date: 09/29/2023 [...] M.D. Signed By: 09/29/2325 DD/ 1 TD/TT: Location And Measurement Technician: Procedure Note Radiology, Radiologist, MD - 09/29/2023 [place] [address] XRay Report Signed Patient: JONES PANIAGUA R#: [id number] : 1980Acct:[id number] Age/Sex: 42 / FADM Date: 09/28/23 Loc: [facility] Attending Dr: ZITA ROGERS Ordering Physician: ZITA ROGERS Date of Service: 09/28/23 Procedure(s): XR lumbar spine min 4V Accession Number(s): [id number] cc: GAY DE LA TORRE ; ZITA ROGERS The [place] [id number] Patient Name: JONES PANIAGUA MRN: [id number] date: 1980 Sex: F Assigned Patient Location: [facility] Current Patient Location: Accession/Order Number: [id number] Exam Date: 09/28/2023 14:41 Report Date: 09/29/2023 [...] Shaikh M.D. Signed By:09/29/23724 DD/ 1 TD/TT: Location And Measurement Technician: us Zita Rogers SUPERVISOR FRONT [facility] Final Result documented in this encounter Visit Diagnoses Not on filedocumented in this encounter Care Teams Lab Animal Technologist Relationship Specialty Start Date End Date Charles Nicole MD PCP - General Family Medicine 02/09/24 07/17/24 Gay De La Torre MD [address] [place], [place] [address] Referring Physician Family Medicine 07/18/24 documented as of this encounter
--- OUTSIDE RECORDS SUMMARY | 2025-02-26 15:21 | XMS_ITS | Encounter Summary ---
Author Organization [facility] Address [address] [place] [address] Care Team Providers Care Technical Professional Name Role Phone Manuel Klein MD Unavailable [phone] Manuel Klein MD Primary Care Provider +-4 Manuel Klein MD Unavailable [phone] Source Comments In the event this information is protected by the Federal Confidentiality of Alcohol and Drug AbusePatient Records regulations: The Federal rules restrict any use of the information to criminally investigate or prosecute any alcohol or drug abuse patient.[facility] Encounter Details Date Type Department Care Team (Late st Contact Info) Description 06/10/2022 Patient Msg Hematology/Oncology [address] [place] [address] Cele Marshall Nurse Dre [address] [facility] [place] [address] Appointment Cancellation Request Social History Tobacco [...] N ot on file 08/09/2020 Data from: https://www.neighborhoodatlas.medicine.[facility]/. Last address used for calculation [...] Description 03/08/2025 2:00 PM EDT [facility] Center Hematology/Oncology [address] [place] [address] BENLYSTA - 03/21/2025 9:00 AM EDT Office Visit [facility] [place] [address] 4 week follow up IVIG - pt to see MASON for this appt per [facility] 03/21/2025 9:20 AM EDT Visit (SP) Office Hematology/Oncology [address] [facility] [place] [address] Jose Cho MD [address] [place] [address] 4 week follow up IVIG - pt to see MASON for this appt per [facility] 03/21/2025 9:40 AM EDT Infusion Center Hematology/Oncology [address] [facility] [place] [address] Gabbi, Chair [address] [facility] [place] [address] 4 week follow up IVIG - pt to see MASON for this appt per [facility] 04/05/2025 2:00 PM EST Infusion Center Hematology/Oncology [address] [facility] [place] [address] BENLYSTA - 05/03/2025 2:00 PM [facility] Infusion Center Hematology/Oncology [address] [facility] [place] [address] BENLYSTA - documented as of this encounter Visit Diagnoses Not on filedocumented in this encounter Care Teams Technical Professional Relationship Specialty Start Date End Date Manuel Klein MD PCP - General Family Medicine 02/27/22 Manuel Klein MD Referring Family Medicine 02/12/22 Manuel Klein MD [address] [place] [address] Referring Family Medicine 07/06/24 documented as of this encounter
--- OUTSIDE RECORDS SUMMARY | 2025-02-26 15:21 | XMS_ITS | Encounter Summary ---
Author Organization [facility] Address [address] [place] [address] Care Team Providers Care Training And Development Assistant Name Role Phone Gay De La Torre(Historical) SAUSAGE MACHINE OPERATOR.APARTMENT RENTAL AGENT Primary Care Provider Unavailable Manuel Klein MD Unavailable [phone] Manuel Klein MD Primary Care Provider +-4 Manuel Klein MD Unavailable [phone] Source Comments In the event this information is protected by the Federal Confidentiality of Alcohol and Drug AbusePatient Records regulations: The Federal rules restrict any use of the information to criminally investigate or prosecute any alcohol or drug abuse patient.[facility] Encounter Details Date Type Department Care Team (Late st Contact Info) Description 05/05/2021 Get Medical Advice Rheumatology [address] [place], [place] [phone] Snadra Park MD [address] [place], [place] [id number] Steroids Social History Tobacco Use Types Packs/Day [...] N ot on file 08/09/2020 Data from: https://www.neighborhoodatlas.[facility]/. Last address used for calculation Not on [...] 2:00 PM EDT Infusion Center Hematology/Oncology [address] [facility] [place] [address] BENLYSTA - 03/21/2025 9:00 AM EDT Office Visit [facility] Laboratory [address] [place] [address] 4 week follow up IVIG - pt to see MASON for this appt per [facility] 03/21/2025 9:20 AM EDT Visit (SP) Office Hematology/Oncology [address] [facility] [place] [address] Jose Cho MD [address] [facility] [place] [address] 4 week follow up IVIG - pt to see MASON for this appt per [facility] 03/21/2025 9:40 AM EDT Infusion Center Hematology/Oncology [address] [facility] [place] [address] Gabbi, Chair 4 [address] [facility] [place] [address] 4 week follow up IVIG - pt to see MASON for this appt per [facility] 04/05/2025 2:00 PM EST Infusion Center Hematology/Oncology [address] [facility] [place] [address] BENLYSTA - 05/03/2025 2:00 PM EST Infusion Center Hematology/Oncology [address] [facility] [place] [address] BENLYSTA - documented as of this encounter Visit Diagnoses Diagnosis Other systemic lupus erythematosus with other organ involvement (HCC)- Primary documented in this encounter Care Teams Training And Development Assistant Relationship Specialty Start Date End Date Gay De La Torre(Historical), SAUSAGE MACHINE OPERATOR.APARTMENT RENTAL AGENT PCP - General Family Medicine 10/24/21 02/26/22 Manuel Klein MD PCP - General Family Medicine 02/27/22 Manuel Klein MD Referring Family Medicine 02/12/22 Manuel Klein MD [address] [place] [address] Referring Family Medicine 07/06/24 documented as of this encounter
--- OUTSIDE RECORDS SUMMARY | 2025-02-26 15:21 | XMS_ITS | Encounter Summary ---
Author Organization [facility] Address [address] [place] [address] Care Team Providers Care Mobile Application Tester Name Role Phone Manuel Klein MD Unavailable [phone] Manuel Klein MD Primary Care Provider +-4 Manuel Klein MD Unavailable [phone] Source Comments In the event this information is protected by the Federal Confidentiality of Alcohol and Drug AbusePatient Records regulations: The Federal rules restrict any use of the information to criminally investigate or prosecute any alcohol or drug abuse patient.[facility] Encounter Details Date Type Department Care Team (Latest Contact Info) Description 03/29/2024 Patient Msg [facility] [address] [place] [address] Akiko Cooper MD [address] [place] [address] breath test scheduling Social History Tobacco Use [...] is lower risk 4 09/24/2022 Data from: https://www.neighborhoodatlas.medicine.[facility]/. Last address used for calculation [address] 09/24/2022 Comments No Sex and Gender [...] [facility] [address] [place] [address] BENLYSTA - 03/21/2025 9:00 AM EDT Office Visit [facility] Laboratory [address] [place] [address] 4 week follow up IVIG - pt to see MASON for this appt per [facility] 03/21/2025 9:20 AM EDT Visit (SP) Office Hematology/Oncology [address] [place] [address] Jose Cho MD [address] [place] [address] 4 week follow up IVIG - pt to see MASON for this appt per [facility] 03/21/2025 9:40 AM EDT Infusion Center Hematology/Oncology [address] [place] [address] Gabbi, Chair [address] [place] [address] 4 week follow up IVIG - pt to see MASON for this appt per [facility] 04/05/2025 2:00 PM EST Infusion Center Hematology/Oncology [address] [place] [address] BENLYSTA - 05/03/2025 2:00 PM [facility] Infusion Center Hematology/Oncology [address] [place] [place] [address] BENLYSTA - documented as of this encounter Visit Diagnoses Not on filedocumented in this encounter Care Teams Mobile Application Tester Relationship Specialty Start Date End Date Manuel Klein MD PCP - General Family Medicine 02/27/22 Manuel Klein MD Referring Family Medicine 02/12/22 Manuel Klein MD [address] [place] [address] Referring Family Medicine 07/06/24 documented as of this encounter
--- OUTSIDE RECORDS SUMMARY | 2025-02-26 15:21 | XMS_ITS | Encounter Summary ---
Author Organization [facility] Address [address] [place] [address] Care Team Providers Care Asset Specialist Name Role Phone Manuel Klein MD Unavailable [phone] Manuel Klein MD Primary Care Provider +-4 Manuel Klein MD Unavailable [phone] Source Comments In the event this information is protected by the Federal Confidentiality of Alcohol and Drug AbusePatient Records regulations: The Federal rules restrict any use of the information to criminally investigate or prosecute any alcohol or drug abuse patient.[facility] Encounter Details Date Type Department Care Team (Late st Contact Info) Description 03/26/2022 Patient Msg Allergy [address] [place] [phone] Misty Nelson MD [facility] [place] [address] lab results Social History Tobacco [...] N ot on file 08/09/2020 Data from: https://www.neighborhoodatlas.medicine.[facility]/. Last address used for calculation Not on [...] [facility] Center Hematology/Oncology [address] [place] [address] [place] [address] BENLYSTA - 03/21/2025 9:00 AM EDT Office Visit [facility] [address] [place] [address] 4 week follow up IVIG - pt to see MASON for this appt per [facility] 03/21/2025 9:20 AM EDT Visit (SP) Office Hematology/Oncology [address] [facility] [place] [address] Jose Cho MD [address] [facility] [place] [address] 4 week follow up IVIG - pt to see MASON for this appt per [facility] 03/21/2025 9:40 AM EDT Infusion Center Hematology/Oncology [address] [facility] [place] [address] Gabbi, [facility] 4 [address] [facility] [place] [address] 4 week follow up IVIG - pt to see MASON for this appt per [facility] 04/05/2025 2:00 PM EST Infusion Center Hematology/Oncology [address] [facility] [place] [address] BENLYSTA - 05/03/2025 2:00 PM [facility] Infusion Center Hematology/Oncology [address] [facility] [place] [address] BENLYSTA - documented as of this encounter Visit Diagnoses Not on filedocumented in this encounter Care Teams Asset Specialist Relationship Specialty Start Date End Date Manuel Klein MD PCP - General Family Medicine 02/27/22 Manuel Klein MD Referring Family Medicine 02/12/22 Manuel Klein MD [address] [place] [address] Referring Family Medicine 07/06/24 documented as of this encounter
--- OUTSIDE RECORDS SUMMARY | 2025-02-26 15:21 | XMS_ITS | Encounter Summary ---
Author Organization [facility] Address [address] [place] [address] Phone Care Team Providers Care Labor Trainer Name Role Phone MitaliMichelle AUTOMATIC LUMP MAKING MACHINE TENDER-DICE TABLE PERSON Unavailable [phone] Kenneth Patel MD Unavailable [phone] Gay De La Torre AUTOMATIC LUMP MAKING MACHINE TENDER-DICE TABLE PERSON Primary Care Provider Encounter Details Date Type Department Care Team (Late st Contact Info) Description 12/11/2023 Scanned Document [facility] [address] [place] [phone] Scanning, Generic Provider Social History Tobacco Use [...] Description 07/26/2025 11:00 AM EST Office Visit [facility] [address] [facility] [address] [place] [address] Lois Arguelles MD [address] [place] [address] documented as of this encounter [...] documented as of this encounter Care Teams Labor Trainer Relationship Specialty Start Date End Date Gay De La Torre, AUTOMATIC LUMP MAKING MACHINE TENDER-DICE TABLE PERSON [address] [place] [address] PCP - General 07/13/23 Michelle Jasmine APRN-DICE TABLE PERSON Nurse Practitioner Cardiology 06/08/23 Kenneth Patel MD Consulting Physician Cardiology 06/23/23 documented as of this encounter
--- OUTSIDE RECORDS SUMMARY | 2025-02-26 15:21 | XMS_ITS | Encounter Summary ---
Author Organization [facility] Address [address] [place] [address] Care Team Providers Care Laborer Pie Bakery Name Role Phone Manuel Klein MD Unavailable [phone] Manuel Klein MD Primary Care Provider +-4 Manuel Klein MD Unavailable [phone] Source Comments In the event this information is protected by the Federal Confidentiality of Alcohol and Drug AbusePatient Records regulations: The Federal rules restrict any use of the information to criminally investigate or prosecute any alcohol or drug abuse patient.[facility] Encounter Details Date Type Department Care Team (Late st Contact Info) Description 03/18/2022 Get Medical Advice Hematology/Oncology [facility] [place] [address] Jose Cho MD [facility] [address] [place] [address] Blood work Social History Tobacco Use [...] N ot on file 08/09/2020 Data from: https://www.neighborhoodatlas.[facility]/. Last address used for calculation Not on [...] 2:00 PM EDT Infusion Center Hematology/Oncology [address] [facility] [address] BENLYSTA - 03/21/2025 9:00 AM EDT Office Visit [facility] Laboratory [address] [place] [address] 4 week follow up IVIG - pt to see MASON for this appt per [facility] 03/21/2025 9:20 AM EDT Visit (SP) Office Hematology/Oncology [address] [facility] [address] Jose Cho MD [address] [facility] [address] 4 week follow up IVIG - pt to see MASON for this appt per [facility] 03/21/2025 9:40 AM EDT Infusion Center Hematology/Oncology [address] [facility] [address] Gabbi, Chair [address] [facility] [address] 4 week follow up IVIG - pt to see MASON for this appt per [facility] 04/05/2025 2:00 PM EST Infusion Center Hematology/Oncology [address] [place] [address] BENLYSTA - 05/03/2025 2:00 PM [facility] Infusion Center Hematology/Oncology [address] [facility] [address] BENLYSTA - documented as of this encounter Visit Diagnoses Not on filedocumented in this encounter Care Teams Laborer Pie Bakery Relationship Specialty Start Date End Date Manuel Klein MD PCP - General Family Medicine 02/27/22 Manuel Klein MD Referring Family Medicine 02/12/22 Manuel Klein MD [address] [place] [address] Referring Family Medicine 07/06/24 documented as of this encounter
--- OUTSIDE RECORDS SUMMARY | 2025-02-26 15:22 | XMS_ITS | Encounter Summary ---
Author Organization [facility] Address [address] [place] [address] Care Team Providers Care Residential Direct Support Professional Name Role Phone Manuel Klein MD Unavailable [phone] Manuel Klein MD Primary Care Provider +-4 Manuel Klein MD Unavailable Source Comments In the event this information is protected by the Federal Confidentiality of Alcohol and Drug AbusePatient Records regulations: The Federal rules restrict any use of the information to criminally investigate or prosecute any alcohol or drug abuse patient.[facility] Encounter Details Date Type Department Care Team (Late st Contact Info) Description 02/23/2024 Patient Msg Rheumatology [address] [place], [place] [phone] Sandra Park MD [address] [place] [address] Appointment Request Social History Tobacco [...] is lower risk 4 09/24/2022 Data from: https://www.neighborhoodatlas.medicine.[facility]/. Last address used for calculation [address] 09/24/2022 Comments No Sex and Gender [...] [facility] Center Hematology/Oncology [address] [facility] [place] [address] BENLYSTA - 03/21/2025 9:00 AM EDT Office Visit [facility] Laboratory [address] [place] [address] [place] [address] 4 week follow up IVIG - pt to see MASON for this appt per [facility] 03/21/2025 9:20 AM EDT Visit (SP) Office Hematology/Oncology [address] [facility] [place] [place] [address] Jose Cho MD [address] [facility] [place] [place] [address] 4 week follow up IVIG - pt to see MASON for this appt per [facility] 03/21/2025 9:40 AM EDT Infusion Center Hematology/Oncology [address] [facility] [place] [place] [address] Gabbi, Chair [address] [facility] [place] [place] [address] 4 week follow up IVIG - pt to see MASON for this appt per [facility] 04/05/2025 2:00 PM EST Infusion Center Hematology/Oncology [address] [facility] [place] [address] BENLYSTA - 05/03/2025 2:00 PM [facility] Infusion Center Hematology/Oncology [address] [facility] [place] [place] [address] BENLYSTA - documented as of this encounter Visit Diagnoses Not on filedocumented in this encounter Care Teams Residential Direct Support Professional Relationship Specialty Start Date End Date Manuel Klein MD PCP - General Family Medicine 02/27/22 Manuel Klein MD Referring Family Medicine 02/12/22 Manuel Klein MD [address] [place] [place] [address] Referring Family Medicine 07/06/24 documented as of this encounter
--- OUTSIDE RECORDS SUMMARY | 2025-02-26 15:22 | XMS_ITS | Encounter Summary ---
Author Organization [facility] Address [address] [place] [address] Care Team Providers Care Elevator Repairer Apprentice Name Role Phone Aime Davidson MD, Lui Nunez Primary Care Provid er Gay De La Torre(Historical) HEALTH CARE ATTORNEY.PROPERTY MAINTENANCE SUPERVISOR Primary Care Provider Unavailable Manuel Klein MD Unavailable [phone] Manuel Klein MD Primary Care Provider [phone] Manuel Klein MD Unavailable [phone] Source Comments In the event this information is protected by the Federal Confidentiality of Alcohol and Drug AbusePatient Records regulations: The Federal rules restrict any use of the information to criminally investigate or prosecute any alcohol or drug abuse patient.[facility] Encounter Details Date Type Department Care Team (Late st Contact Info) Description 12/25/2014 Get Medical Advice Internal Medicine [facility] [place] [address] Lui Salomon Jr., MD [address] [address] Test Result Question Social History [...] [facility] Hematology/Oncology [address] [place] [address] BENLYSTA - 03/21/2025 9:00 AM EDT Office Visit [facility] [place] [address] 4 week follow up IVIG - pt to see MASON for this appt per [facility] 03/21/2025 9:20 AM EDT Visit (SP) Office Hematology/Oncology [facility] [place] [address] Jose Cho MD [address] [place] [address] 4 week follow up IVIG - pt to see MASON for this appt per [facility] 03/21/2025 9:40 AM EDT Infusion Center Hematology/Oncology [address] [place] [address] Gabbi, Chair [address] [place] [address] 4 week follow up IVIG - pt to see MASON for this appt per [facility] 04/05/2025 2:00 PM EST Infusion Center Hematology/Oncology [address] [facility] [place] [address] BENLYSTA - 05/03/2025 2:00 PM EST Infusion Center Hematology/Oncology [address] [place] [address] BENLYSTA - documented as of this encounter Visit Diagnoses Not on filedocumented in this encounter Care Teams Elevator Repairer Apprentice Relationship Specialty Start Date End Date Lui Salomon Jr., MD PCP - General Internal Medicine 05/31/14 07/08/20 Gay De La Torre(Historical), HEALTH CARE ATTORNEY.PROPERTY MAINTENANCE SUPERVISOR PCP - General Family Medicine 10/24/21 02/26/22 Manuel Klein MD PCP - General Family Medicine 02/27/22 Manuel Klein MD Referring Family Medicine 02/12/22 Manuel Klein MD [address] [place] [facility] [place] [address] Referring Family Medicine 07/06/24 documented as of this encounter
--- OUTSIDE RECORDS SUMMARY | 2025-02-26 15:22 | XMS_ITS | Encounter Summary ---
Author Organization [facility] Address [address] [place] [address] Care Team Providers Care Concrete Form Setter Name Role Phone Manuel Klein MD Unavailable [phone] Manuel Klein MD Primary Care Provider +-4 Manuel Klein MD Unavailable [phone] Source Comments In the event this information is protected by the Federal Confidentiality of Alcohol and Drug AbusePatient Records regulations: The Federal rules restrict any use of the information to criminally investigate or prosecute any alcohol or drug abuse patient.[facility] Encounter Details Date Type Department Care Team (Late st Contact Info) Description 10/15/2022 Get Medical Advice Allergy [address] [place] [phone] Misty Nelson MD [address] [place] [address] Vaccine Social History Tobacco Use Types [...] is lower risk 4 09/24/2022 Data from: https://www.neighborhoodatlas.medicine.[facility]/. Last address used for calculation [address] 09/24/2022 Comments No Sex and Gender [...] [facility] Hematology/Oncology [facility] [place] [address] BENLYSTA - 03/21/2025 9:00 AM EDT Office Visit [facility] Laboratory [facility] [place] [address] 4 week follow up IVIG - pt to see MASON for this appt per [facility] 03/21/2025 9:20 AM EDT Visit (SP) Office Hematology/Oncology [address] [place] [address] Jose Cho MD [address] [place] [address] 4 week follow up IVIG - pt to see MASON for this appt per [facility] 03/21/2025 9:40 AM EDT Infusion Center Hematology/Oncology [address] [place] [address] Gabbi, Chair [address] [place] [address] 4 week follow up IVIG - pt to see MASON for this appt per [facility] 04/05/2025 2:00 PM EST Infusion Center Hematology/Oncology [address] [place] [address] BENLYSTA - 05/03/2025 2:00 PM EST Infusion Center Hematology/Oncology [address] [place] [address] BENLYSTA - documented as of this encounter Visit Diagnoses Not on filedocumented in this encounter Care Teams Concrete Form Setter Relationship Specialty Start Date End Date Manuel Klein MD PCP - General Family Medicine 02/27/22 Manuel Klein MD Referring Family Medicine 02/12/22 Manuel Klein MD [address] [place] [address] Referring Family Medicine 07/06/24 documented as of this encounter
--- OUTSIDE RECORDS SUMMARY | 2025-02-26 15:22 | XMS_ITS | Encounter Summary ---
Author Organization [facility] Address [id number] [address] [place] [address] Care Team Providers Care Coldfusion Name Role Phone Unavailable Primary Care Provider Unavailabl e Encounter Details Date Type Department Care Team (Late st Contact Info) Description 04/05/2024 Orders Only [facility] [address] [place] [address] Ref Prov, [place] [address] Social History Tobacco Use Types Packs/Day Years [...]
--- OUTSIDE RECORDS SUMMARY | 2025-02-26 15:22 | XMS_ITS | Encounter Summary ---
Author Organization [facility] Address [address] [place] [address] Care Team Providers Care Building Cleaning Supervisor Name Role Phone Manuel Klein MD Unavailable [phone] Manuel Klein MD Primary Care Provider +-4 Manuel Klein MD Unavailable [phone] Source Comments In the event this information is protected by the Federal Confidentiality of Alcohol and Drug AbusePatient Records regulations: The Federal rules restrict any use of the information to criminally investigate or prosecute any alcohol or drug abuse patient.[facility] Encounter Details Date Type Department Care Team (Late st Contact Info) Description 10/02/2022 Get Medical Advice [facility]ative [facility] Lifestyle Medicine [address] [place] [address] Christie Phan MD [address], [place] [address] Trulicity Social History Tobacco Use [...] is lower risk 4 09/24/2022 Data from: https://www.neighborhoodatlas.medicine.[facility]/. Last address used for calculation [address] 09/24/2022 Comments No Sex and Gender [...] [facility] Center Hematology/Oncology [facility] [place] [address] BENLYSTA - 03/21/2025 9:00 AM EDT Office Visit [facility] Laboratory [facility] [place] [address] 4 week follow up IVIG - pt to see MASON for this appt per [facility] 03/21/2025 9:20 AM EDT Visit (SP) Office Hematology/Oncology [address] [facility] [place] [address] Jose Cho MD [address] [facility] [place] [address] 4 week follow up IVIG - pt to see MASON for this appt per [facility] 03/21/2025 9:40 AM EDT Infusion Center Hematology/Oncology [address] [facility] [place] [address] Gabbi, Chair [address] [facility] [place] [address] 4 week follow up IVIG - pt to see MASON for this appt per [facility] 04/05/2025 2:00 PM EST Infusion Center Hematology/Oncology [address] [facility] [place] [address] BENLYSTA - 05/03/2025 2:00 PM EST Infusion Center Hematology/Oncology [address] [facility] [place] [address] BENLYSTA - documented as of this encounter Visit Diagnoses Not on filedocumented in this encounter Care Teams Building Cleaning Supervisor Relationship Specialty Start Date End Date Manuel Klein MD PCP - General Family Medicine 02/27/22 Manuel Klein MD Referring Family Medicine 02/12/22 Manuel Klein MD [address] [place] [address] Referring Family Medicine 07/06/24 documented as of this encounter
--- OUTSIDE RECORDS SUMMARY | 2025-02-26 15:22 | XMS_ITS | Clinical Summary ---
Author Organization [facility] Address [id number] [address] [place] [address] Care Team Providers Care Roller Coaster Operator Name Role Phone Unavailable Primary Care [...]
--- OUTSIDE RECORDS SUMMARY | 2025-02-26 15:22 | XMS_ITS | Encounter Summary ---
Author Organization [facility] Address [address] [place] [address] Care Team Providers Care Financial Counselor Name Role Phone Manuel Klein MD Unavailable [phone] Manuel Klein MD Primary Care Provider +-4 Manuel Klein MD Unavailable [phone] Source Comments In the event this information is protected by the Federal Confidentiality of Alcohol and Drug AbusePatient Records regulations: The Federal rules restrict any use of the information to criminally investigate or prosecute any alcohol or drug abuse patient.[facility] Encounter Details Date Type Department Care Team (Late st Contact Info) Description 12/09/2023 Get Medical Advice Infectious Disease [address] [place] [address] Tiffany Head DO [address] [place] [address] Infection Social History Tobacco Use [...] is lower risk 4 09/24/2022 Data from: https://www.neighborhoodatlas.medicine.[facility]/. Last address used for calculation [address] 09/24/2022 Comments No Sex and Gender [...] Contact Info) Description 03/08/2025 2:00 PM EDT [facility] Center Hematology/Oncology [facility] [place] [address] BENLYSTA - 03/21/2025 9:00 AM EDT Office Visit [facility] [place] [address] 4 week follow up IVIG - pt to see MASON for this appt per [facility] 03/21/2025 9:20 AM EDT Visit (SP) Office Hematology/Oncology [address] [facility] [place] [address] Jose Cho MD [address] [facility] [place] [address] 4 week follow up IVIG - pt to see MASON for this appt per [facility] 03/21/2025 9:40 AM EDT Infusion Center Hematology/Oncology [address] [facility] [place] [address] Gabbi, Chair [address] [facility] [place] [address] 4 week follow up IVIG - pt to see MASON for this appt per [facility] 04/05/2025 2:00 PM EST Infusion Center Hematology/Oncology [address] [facility] [place] [address] BENLYSTA - 05/03/2025 2:00 PM EST Infusion Center Hematology/Oncology [address] [facility] [place] [address] BENLYSTA - documented as of this encounter Visit Diagnoses Not on filedocumented in this encounter Care Teams Financial Counselor Relationship Specialty Start Date End Date Manuel Klein MD PCP - General Family Medicine 02/27/22 Manuel Klein MD Referring Family Medicine 02/12/22 Manuel Klein MD [address] [place] [address] Referring Family Medicine 07/06/24 documented as of this encounter
--- OUTSIDE RECORDS SUMMARY | 2025-02-26 15:22 | XMS_ITS | Encounter Summary ---
Author Organization [facility] Address [address] [place] [address] Care Team Providers Care Director Translational Name Role Phone Manuel Klein MD Unavailable [phone] Manuel Klein MD Primary Care Provider [...] Contact Info) Description 12/24/2022 Patient Msg Allergy [address] [place] [phone] Misty Nelson MD [facility] [place] [address] Request an Appointment Social History [...] is lower risk 4 09/24/2022 Data from: https://www.neighborhoodatlas.medicine.[facility]/. Last address used for calculation [address] 09/24/2022 Comments No Sex and Gender [...] EDT [facility] Hematology[facility]Oncology [address] [place] [address] BENLYSTA - 03/21/2025 9:00 AM EDT Office Visit [facility] Laboratory [facility] [place] [address] 4 week follow up IVIG - pt to see MASON for this appt per [facility] 03/21/2025 9:20 AM EDT Visit (SP) Office Hematology/Oncology [address] [place] [address] Jose Cho MD [address] [place] [address] 4 week follow up IVIG - pt to see MASON for this appt per [facility] 03/21/2025 9:40 AM EDT Infusion Center Hematology/Oncology [address] [place] [address] Gabbi, Chair [address] [place] [address] 4 week follow up IVIG - pt to see MASON for this appt per [facility] 04/05/2025 2:00 PM EST Infusion Center Hematology/Oncology [address] [place] [address] BENLYSTA - 05/03/2025 2:00 PM EST Infusion Center Hematology/Oncology [address] [place] [address] BENLYSTA - documented as of this encounter Visit Diagnoses Not on filedocumented in this encounter Care Teams Director Translational Relationship Specialty Start Date End Date Manuel Klein MD PCP - General Family Medicine 02/27/22 Manuel Klein MD Referring Family Medicine 02/12/22 Manuel Klein MD [address] [place] [address] Referring Family Medicine 07/06/24 documented as of this encounter
--- OUTSIDE RECORDS SUMMARY | 2025-02-26 15:22 | XMS_ITS | Encounter Summary ---
Author Organization [facility] Address [address] [place] [address] Care Team Providers Care Value Stream Leader Name Role Phone House, Charles Culver MD Primary Care Provider Gay De La Torre MD Unavailable [phone] Encounter Details Date Type Department Care Team (Late Contact Info) Description 10/19/2022 Abstract [facility] [address] [facility] [address] [place] [id number] Cynthia English MD [address] [facility] [address] [place] [address] Social History Tobacco Use Types Packs/Day Years [...] [facility] [address] [facility] [address] [place] [id number] Terence Blum MD [address] [facility] [address] [place] [address] 03/19/2025 10:20 AM EDT Office Visit [facility] [address] [place] [address] Mary Grace Mejias MD [address] [facility] [address] [place] [address] 07/25/2025 11:00 AM EST Office Visit [facility] [address] [place] [address] Cynthia English MD [address] [place] [address] documented as of this encounter Visit Diagnoses Not on filedocumented in this encounter Care Teams Value Stream Leader Relationship Specialty Start Date End Date Charles Nicole MD PCP - General Family Medicine 02/09/24 07/17/24 Gay De La Torre MD [address] [place] [address] Referring Physician Family Medicine 07/18/24 documented as of this encounter
--- OUTSIDE RECORDS SUMMARY | 2025-02-26 15:22 | XMS_ITS | Clinical Summary ---
Author Organization [facility] Address [address] [facility], [address] [place] [address] Care Team Providers Care Provider Scribe Name Role Phone Gay De La Torre APRN - FLARER Primary Care Provide r Allergies Active Allergy [...] 8:32 AM 10/08/2020 2:43 AM Care Teams Provider Scribe Relationship Specialty Start Date End Date Gay De La Torre, MAURILIO - FLARER [address] [place] [id number] PCP - General 06/03/21
--- OUTSIDE RECORDS SUMMARY | 2025-02-26 15:22 | XMS_ITS | Encounter Summary ---
Author Organization [facility] Address [facility] [place] [address] Care Team Providers Care [employer]ile [employer] Sales Representative Name Role Phone Manuel Klein MD Unavailable [phone] Mnauel Klein MD Primary Care Provider [...] Info) Description 10/29/2022 Patient Msg [facility] [address] [place] [address] Christie Phan MD [address], [place] [address] Trulicity Social History Tobacco Use [...] is lower risk 4 09/24/2022 Data from: https://www.neighborhoodatlas.medicine.[facility]/. Last address used for calculation [address] 09/24/2022 Comments No Sex and Gender [...] Contact Info) Description 03/08/2025 2:00 PM EDT [facility] Center Hematology/Oncology [address] [place] [address] BENLYSTA - 03/21/2025 9:00 AM EDT Office Visit [facility] [place] [address] 4 week follow up IVIG - pt to see MASON for this appt per [facility] 03/21/2025 9:20 AM EDT Visit (SP) Office Hematology/Oncology [address] [facility] [place] [address] Jose Cho MD [address] [facility] [place] [address] 4 week follow up IVIG - pt to see MASON for this appt per [facility] 03/21/2025 9:40 AM EDT Infusion Center Hematology/Oncology [address] [facility] [place] [address] Gabbi, Chair 4 [address] [facility] [place] [address] 4 week follow up IVIG - pt to see MASON for this appt per [facility] 04/05/2025 2:00 PM EST Infusion Center Hematology/Oncology [address] [facility] [place] [address] BENLYSTA - 05/03/2025 2:00 PM EST Infusion Center Hematology/Oncology [address] [facility] [place] [address] BENLYSTA - documented as of this encounter Visit Diagnoses Not on filedocumented in this encounter Care Teams [employer] Sales Representative Relationship Specialty Start Date End Date Manuel Klein MD PCP - General Family Medicine 02/27/22 Manuel Klein MD Referring Family Medicine 02/12/22 Manuel Klein MD [address] [facility] [place] [address] Referring Family Medicine 07/06/24 documented as of this encounter
--- OUTSIDE RECORDS SUMMARY | 2025-02-26 15:22 | XMS_ITS | Encounter Summary ---
Author Organization [facility] Address [address] [place] [address] Care Team Providers Care Wage And Salary Administrator Name Role Phone Manuel Klein MD Unavailable [phone] Manuel Klein MD Primary Care Provider +-4 Manuel Klein MD Unavailable [phone] Source Comments In the event this information is protected by the Federal Confidentiality of Alcohol and Drug AbusePatient Records regulations: The Federal rules restrict any use of the information to criminally investigate or prosecute any alcohol or drug abuse patient.[facility] Encounter Details Date Type Department Care Team (Late st Contact Info) Description 02/21/2025 Get Medical Advice Hematology/Oncology [address] [place] [address] [place] [address] Provider, [facility] Blood work Social History Tobacco [...] risk 4 09/24/2022 Data from: https://www.neighborhoodatlas.medicine.[facility]/. Last address used for calculation [address] 09/24/2022 Comments No Sex and Gender [...] [facility] Hematology/Oncology [address] [facility] [place] [address] BENLYSTA - 03/21/2025 9:00 AM EDT Office Visit [facility] [address] [facility] [place] [address] 4 week follow up IVIG - pt to see MASON for this appt per [facility] 03/21/2025 9:20 AM EDT Visit (SP) Office Hematology/Oncology [address] [facility] [place] [address] Jose Cho MD [address] [facility] [place] [address] 4 week follow up IVIG - pt to see MASON for this appt per [facility] 03/21/2025 9:40 AM EDT Infusion Center Hematology/Oncology [address] [facility] [place] [address] Gabbi, Chair 4 [address] [facility] [place] [address] 4 week follow up IVIG - pt to see MASON for this appt per [facility] 04/05/2025 2:00 PM EST Infusion Center Hematology/Oncology [address] [place] [address] [place] [address] BENLYSTA - 05/03/2025 2:00 PM [facility] Infusion Center Hematology/Oncology [address] [place] [address] [place] [address] BENLYSTA - documented as of this encounter Visit Diagnoses Not on filedocumented in this encounter Care Teams Wage And Salary Administrator Relationship Specialty Start Date End Date Manuel Klein MD PCP - General Family Medicine 02/27/22 Manuel Klein MD Referring Family Medicine 02/12/22 Manuel Klein MD [address] [place] [address] Referring Family Medicine 07/06/24 documented as of this encounter
--- OUTSIDE RECORDS SUMMARY | 2025-02-26 15:22 | XMS_ITS | Clinical Summary ---
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 02/04 Excessive [...] AM EDT Infusion Center Hematology/[facility]colo gy [address] [place] [address] Frequent infections (Primary Dx); Hypogammaglobulinemia (HCC); Bilateral leg weakness; Discoid lupus erythematosus 02/21/2025 9:00 AM EDT Visit (SP) Office Hematology/Oncolo gy [address] [place], [place] [address] [place] [place] [address] Fara Lopez APRN.BAGGAGEMAN Frequent infections (Primary Dx); Hypogammaglobulinemia (HCC); Bilateral leg weakness; Discoid lupus erythematosus; Vitamin B12 deficiency; Shortness of breath; Other iron deficiency anemia; Malaise and fatigue 02/21/2025 Get Medical Advice Hematology/Oncolo [address] [place] [address] Provider, Ccf Blood work 02/21/2025 Telephone Cancer Appts [address] [place] [address] Fara Lopez APRN.BAGGAGEMAN Results 02/12/2025 Telephone Hematology/Oncolo gy [address] [place] [address] [place] [address] Enma Hamm RN Lab Orders 02/08/2025 2:00 PM EDT Infusion Center Hematology/[place] gy [address] [place] [address] [place] [address] Elevated sed rate (Primary Dx); Megaloblastic anemia due to vitamin B12 deficiency; Other systemic lupus erythematosus with other organ involvement (HCC) 02/06/2025 Orders Only Hematology/Oncolo gy [address] [place] [address] [place] [address] Jose Cho MD 01/24/2025 9:00 AM EDT Infusion Center Hematology/Oncolo gy [address] [place] [address] [place] [address] Frequent infections (Primary Dx); Hypogammaglobulinemia (HCC); Bilateral leg weakness; Discoid lupus erythematosus; Elevated sed rate; Megaloblastic anemia due to vitamin B12 deficiency 01/24/2025 Orders Only Hematology/Oncolo gy [address] [place] [address] [place] [address] Jose Cho MD Frequent infections (Primary Dx); Hypogammaglobulinemia (HCC); Bilateral leg weakness; Discoid lupus erythematosus 01/23/2025 Refill Rheumatology [address] [place] [address] Sandra Park MD Refill Request 01/22/2025 Travel 01/18/2025 Telephone Rheumatology [address] [place] [address] Sandra Park MD Results 01/11/2025 2:00 PM EDT Infusion Center Hematology/[place] gy [address] [place] [address] Other systemic lupus erythematosus with other organ involvement (HCC) (Primary Dx); Elevated LFTs; Anemia of chronic disease; Elevated sed rate; Elevated C-reactive protein (CRP); Vitamin D deficiency; Vitamin B12 deficiency; Screening-pulmonary TB 12/27/2024 9:00 AM EDT Infusion Center Hematology/[place] gy [address] [place] [address] Frequent infections (Primary Dx); Hypogammaglobulinemia (HCC); Bilateral leg weakness; Discoid lupus erythematosus; Elevated sed rate; Megaloblastic anemia due to vitamin B12 deficiency 12/20/2024 Orders Only Hematology/Oncolo gy [address] [place] [address] Neda Hill PAJuliusC 12/19/2024 Orders Only Hematology/Oncolo gy [address] [place] [address] Neda Hill PA-C 12/19/2024 Orders Only Hematology/Oncolo gy [address] [place] [address] Rebekah Rojas APRN.BAGGAGEMAN 12/14/2024 2:00 PM EDT Infusion Center Hematology/Oncolo gy [address] [place] [address] Other systemic lupus erythematosus with other organ involvement (HCC) (Primary Dx) 12/14/2024 Abstract Neurology [address] [place] [address] [facility] CMN 12/14/2024 Orders Only Rheumatology [address] [place] [address] Sandra Park MD 12/12/2024 Travel 11/30/2024 Results Follow-Up Hematology/Oncolo gy [address] [place] [address] [place] [address] Fara Lopez APRN.BAGGAGEMAN Results 11/29/2024 9:30 AM EDT Infusion Center Hematology/[place]col[facility] gy [address] [place] [address] [place] [address] Elevated sed rate (Primary Dx); Megaloblastic anemia due to vitamin B12 deficiency; Frequent infections; Hypogammaglobulinemia (HCC); Bilateral leg weakness; Discoid lupus erythematosus 11/29/2024 9:00 AM EDT Visit (SP) Office Hematology/Oncolo gy [address] [place] [address] [place] [address] Fara Lopez APRN.CNP Hypogammaglobulinemia (HCC) (Primary Dx); Vitamin B12 deficiency; Other iron deficiency anemia; Malaise and fatigue; Shortness of breath; Other specified disorders of breast; Pre-diabetes; Gastro-esophageal reflux disease without esophagitis 11/29/2024 Orders Only Hematology/Oncolo gy [address] [place] [address] [place] [address] Fara Lopez APRN.CNP Frequent infections; Hypogammaglobulinemia (HCC); Bilateral leg weakness; Discoid lupus erythematosus 11/29/2024 Travel from Last 3 Months Immunizations Immunization Administration Dates Next Due COVID-19 vaccine, age 12+ yr ([employer] [facility]) 02/23/2023 Family History Medical History Relation [...] is lower risk 4 09/24/2022 Data from: https://www.neighborhoodatlas.[facility]/. Last address used for calculation [address] 09/24/2022 Comments No Sex and Gender [...] 03/08/2025 2:00 PM EDT Infusion Center Hematology/Oncology [facility] [place] [place] [address] BENLYSTA - 03/21/2025 9:00 AM EDT Office Visit [facility] [address] [place] [address] 4 week follow up IVIG - pt to see MASON for this appt per Fara 03/21/2025 9:20 AM EDT Visit (SP) Office Hematology/Oncology [address] [place] [address] Jose Cho MD [address] [place] [address] 4 week follow up IVIG - pt to see MASON for this appt per Fara 03/21/2025 9:40 AM EDT Infusion Center Hematology/Oncology [facility] [place] [address] Gabbi, Chair [address] [place] [address] [place] [address] 4 week follow up IVIG - pt to see MASON for this appt per Fara 04/05/2025 2:00 PM [facility] Infusion Center Hematology/Oncology [address] [place] [address] BENLYSTA - 05/03/2025 2:00 PM [facility] Infusion Center Hematology/Oncology [address] [place] [address] BENLYSTA - Health Maintenance Due Date Last [...] - 1,245 pg/mL 02/21/2025 10:05 PM EDT [facility] Blood BLOOD SPECIMEN / Unknown Venipuncture / Unknown 02/21/2025 8:51 AM EDT 02/21/2025 8:51 AM EDT us Fara Lopez SENIOR PROJECT ARCHITECT.[facility] LABORATORY Final Resul t [facility] [address] [facility] [address], * (ABNORMAL) IRON AND TIBC (02/21/2025 8:51 AM EDT) Only the most recent of2 resultswithin the time period is included. Iron 156 41 - 186 ug/dL 02/21/2025 9:46 PM EDT [facility] TIBC 443(H) 232 - 386 ug/dL 02/21/2025 9:46 PM EDT [facility] Transferrin Saturation 35.2 15.0 - 57.0 % 02/21/2025 9:46 PM EDT [facility] Blood BLOOD SPECIMEN / Unknown Venipuncture / Unknown 02/21/2025 8:51 AM EDT 02/21/2025 8:51 AM EDT Fara Lopez SENIOR PROJECT ARCHITECT.[facility]ORAT[facility] Final Resul t Performing Organization Address [facility] de Phone Number [facility] [address] [address], [place] * (ABNORMAL) IMMUNOGLOBULINS,IGG,IGA,IGM (02/21/2025 8:51 AM EDT) Only the most recent of2 resultswithin the time period is included. IgG 610(L) 700 - 1,600 mg/dL 02/21/2025 6:21 PM EDT [facility] IgA 184 70 - 400 mg/dL 02/21/2025 6:21 PM EDT [facility] IgM 454(H) 40 - 230 mg/dL 02/21/2025 6:21 PM EDT [facility] Blood BLOOD SPECIMEN / Unknown Venipuncture / Unknown 02/21/2025 8:51 AM EDT 02/21/2025 8:51 AM EDT Fara Lopez SENIOR PROJECT ARCHITECT.[facility]OR[facility] Final Resul t Performing Organization Address [facility] Co de Phone Number [facility] [address] [place] [address], [place] * FOLATE, SERUM (02/21/2025 8:51 AM EDT) Only the most recent of2 resultswithin the time period is included. [facility] Folate >20.0 >4.7 ng/mL 02/21/2025 10:05 PM EDT [facility] Comment: A result of > 20 ng/mL is not necessarily indicative of a pathologic or treatable condition: it reflects a limitation of the test methodology. Assay reference range: 4.8 to 24.2 ng/mL. Suitable for detection of folate deficiency. Reference: Folate III (Folate III) [package insert V 1.0 German]. [place], [place], [place]: March 2015. Blood BLOOD SPECIMEN / Unknown Venipuncture / Unknown 02/21/2025 8:51 AM EDT 02/21/2025 8:51 AM EDT Fara Lopez SENIOR PROJECT ARCHITECT.[facility] Final Resul t Performing Organization Address City/[facility]/ZIP Co de Phone Number [facility] [address] [place] [address], [place] * FERRITIN (02/21/2025 8:51 AM EDT) Only the most recent of2 resultswithin the time period is included. [facility] Ferritin 83.6 14.7 - 205.1 ng/mL 02/21/2025 10:05 PM EDT [facility] Blood BLOOD SPECIMEN / Unknown Venipuncture / Unknown 02/21/2025 8:51 AM EDT 02/21/2025 8:51 AM EDT Fara Lopez SENIOR PROJECT ARCHITECT.[facility] Final Resul t [facility] [address] [place] [address], [place] * (ABNORMAL) COMPREHENSIVE METABOLIC PANEL (02/21/2025 8:51 AM EDT) Only the most recent of3 resultswithin the time period is included. [facility] Protein, Total 7.6 6.3 - 8.0 g/dL 02/21/2025 9:45 AM EDT [facility] Albumin 4.3 3.9 - 4.9 g/dL 02/21/2025 9:45 AM T [facility] Calcium, Total 10.2 8.5 - 10.2 mg/dL 02/21/2025 9:45 AM EDT [facility] Bilirubin, Total 0.3 0.2 - 1.3 mg/dL 02/21/2025 9:45 AM [facility] Alkaline Phosphatase 83 34 - 123 U/L 02/21/2025 9:45 AM T [facility] AST 20 13 - 35 U/L 02/21/2025 9:45 AM [facility] ALT 49(H) 7 - 38 U/L 02/21/2025 9:45 AM [facility] Glucose 248(H) 74 - 99 mg/dL 02/21/2025 9:45 AM [facility] Comment: The [place] Diabetes Association (ADA) provides guidance for cutoff [...] Standards of Medical Care in Diabetes 2016, [place] Diabetes Association. Diabetes Care. 2016.39(Suppl 1). BUN 16 7 - 21 mg/dL 02/21/2025 9:45 AM [facility] Creatinine 0.49(L) 0.58 - 0.96 mg/dL 02/21/2025 9:45 AM [facility] Sodium 138 136 - 144 mmol/L 02/21/2025 9:45 AM [facility] Potassium 4.1 3.7 - 5.1 mmol/L 02/21/2025 9:45 AM EDT [facility] Chloride 101 98 - 107 mmol/L 02/21/2025 9:45 AM EDT [facility] CO2 20(L) 22 - 30 mmol/L 02/21/2025 9:45 AM EDT [facility] Anion Gap 17(H) 8 - 15 mmol/L 02/21/2025 9:45 AM EDT [facility] Estimated Glomerular Filtration Rate 119 >=60 mL/min/1. 73m 02/21/2025 9:45 AM EDT [facility] Comment:Estimated Glomerular Filtration Rate [...] 02/21/2025 8:51 AM EDT us Fara Lopez APRN.[facility] Final Resul t [facility] [address] [place] [address] * (ABNORMAL) COMPLETE BLOOD COUNT AND DIFFERENTIAL (02/21/2025 8:51 AM EDT) Only the most recent of2 resultswithin the time period is included. WBC 13.16(H) 3.70 - 11.00 k/uL 02/21/2025 8:59 AM EDT [facility] RBC 4.77 3.90 - 5.20 m/uL 02/21/2025 8:59 AM EDT [facility] Hemoglobin 15.1 11.5 - 15.5 g/dL 02/21/2025 8:59 AM EDT [facility] Hematocrit 46.0 36.0 - 46.0 % 02/21/2025 8:59 AM EDT [facility] MCV 96.4 80.0 - 100.0 fL 02/21/2025 8:59 AM EDT [facility] MCH 31.7 26.0 - 34.0 pg 02/21/2025 8:59 AM EDT [facility] MCHC 32.8 30.5 - 36.0 g/dL 02/21/2025 8:59 AM EDT [facility] RDW-CV 14.3 11.5 - 15.0 % 02/21/2025 8:59 AM EDT [facility] Platelet Count 305 150 - 400 k/uL 02/21/2025 8:59 AM EDT [facility] MPV 9.9 9.0 - 12.7 fL 02/21/2025 8:59 AM EDT [facility] Neutrophils % 75.5 % 02/21/2025 8:59 AM EDT [facility] Abs Neut 9.94(H) 1.45 - 7.50 k/uL 02/21/2025 8:59 AM EDT [facility] Lymphocytes % 14.4 % 02/21/2025 8:59 AM EDT [facility] Abs Lymph 1.89 1.00 - 4.00 k/uL 02/21/2025 8:59 AM EDT [facility] Monocytes % 7.0 % 02/21/2025 8:59 AM EDT [facility] Abs [place] 0.92(H) <0.87 k/uL 02/21/2025 8:59 AM EDT [facility] Eosinophils % 0.8 % 02/21/2025 8:59 AM EDT [facility] Abs Eosin 0.11 <0.46 k/uL 02/21/2025 8:59 AM EDT [facility] Basophils % 0.7 % 02/21/2025 8:59 AM EDT [facility] Abs Baso 0.09 <0.11 k/uL 02/21/2025 8:59 AM EDT [facility] Immature Granulocytes % 1.6 % 02/21/2025 8:59 AM EDT [facility] Abs Immature Gran 0.21(H) <0.10 k/uL 02/21/2025 8:59 AM EDT [facility] NRBC 0.0 /100 WBC 02/21/2025 8:59 AM EDT [facility] Absolute nRBC <0.01 <0.01 k/uL 02/21/2025 8:59 AM EDT [facility] Diff Type Auto 02/21/2025 8:59 AM EDT [facility] Blood BLOOD SPECIMEN / Unknown Venipuncture / Unknown 02/21/2025 8:51 AM EDT 02/21/2025 8:51 AM EDT us Fara Lopez SENIOR PROJECT ARCHITECT.[facility] Final Resul t [facility] [address] [place] [address] * BLOOD TB SCREEN (01/11/2025 1:48 PM EDT) TB Nil 0.03 <=8.00 IU/mL 01/13/2025 9:22 PM EDT [facility] TB1 Ag minus Nil 0.01 <0.35 IU/mL 01/13/2025 9:22 PM EDT [facility] TB2 Ag minus Nil 0.01 <0.35 IU/mL 01/13/2025 9:22 PM EDT [facility] TB Result Negative 01/13/2025 9:22 PM EDT [facility] Mitogen minus Nil >9.97 >=0.50 IU/mL 01/13/2025 9:22 PM EDT [facility] TB Gamma Interpretation Infection with M. tuberculosis complex is unlikely. If latent tuberculosis infection is highly suspected, a negative result does not rule out the infection. Specimens from immunocompromised patients and those <5 years of age may show false negative results. In case of a contact investigation, please repeat 8-12 weeks after a known exposure. 01/13/2025 9:22 PM EDT [facility] Blood BLOOD SPECIMEN / Unknown Venipuncture / Unknown 01/11/2025 1:48 PM EDT 01/11/2025 2:06 PM EDT us Sandra Park MD LABORATORY Final Result Performing Organization Address City/[facility]/ZIP Co de Phone Number [facility] [address] [place] [address], [place] * VITAMIN D 25 HYDROXY (01/11/2025 1:48 PM EDT) Vitamin D 25 Hydroxy 32.2 31.0 - 80.0 ng/mL 01/12/2025 1:27 PM EDT [facility] Blood BLOOD SPECIMEN / Unknown Venipuncture / Unknown 01/11/2025 1:48 PM EDT 01/11/2025 2:06 PM EDT us Sandra Park MD LABORATORY Final Result Performing Organization Address City/[facility] Co de Phone Number [facility] [address] [place] [phone], [place] * (ABNORMAL) SEDIMENTATION RATE, WESTERGREN (01/11/2025 1:48 PM EDT) Sed Rate, Westergren 34(H) 0 - 20 mm/hr 01/12/2025 1:02 AM EDT [facility] Blood BLOOD SPECIMEN / Unknown Venipuncture / Unknown 01/11/2025 1:48 PM EDT 01/11/2025 2:06 PM EDT us Sandra Park MD LABORATORY Final Result Performing Organization Address City/[facility]/ZIP Co de Phone Number [facility] [address] [place] [phone], [place] * HEPATITIS B SURFACE ANTIGEN (01/11/2025 1:48 PM EDT) HBsAg Negative Negative 01/12/2025 11:45 AM EDT [facility] Blood BLOOD SPECIMEN / Unknown Venipuncture / Unknown 01/11/2025 1:48 PM EDT 01/11/2025 2:06 PM EDT Sandra Park MD LABORATORY Final Result Performing Organization Address [facility]/ZIP Co de Phone Number [facility] [address] [place] [phone], [place] * HEPATITIS B SURFACE ANTIBODY (01/11/2025 1:48 PM EDT) Hep B Surface Ab, Qual Positive 01/12/2025 11:44 AM EDT [facility] Comment:Consistent with sero logical evidence of immunity to Hepatitis B Virus. Hep B Surface Ab Quant 177.77 mIU/mL 01/12/2025 11:44 AM EDT [facility] Comment: <8 mIU/mL: No serological [...] MD LABORATORY Final Result Performing Organization Address City/[facility]/ZIP Co de Phone Number [facility] [address] [place] [phone], [place] * HEPATITIS B CORE ANTIBODY TOTAL (01/11/2025 1:48 PM EDT) Hepatitis B Core Ab, Total Negative Negative 01/12/2025 11:47 AM EDT [facility] Comment:No evidence of curre nt or past infection with Hepatitis B virus. Should recent infection be suspected, repeat testing may be considered 3-4 weeks after this draw. Blood BLOOD SPECIMEN / Unknown Venipuncture / Unknown 01/11/2025 1:48 PM EDT 01/11/2025 2:06 PM EDT us Sandra Park MD LABORATORY Final Result [facility] [address] [facility] [address] [place] [address], * (ABNORMAL) COMPLETE BLOOD COUNT (01/11/2025 1:48 PM EDT) WBC 12.61(H) 3.70 - 11.00 k/uL 01/11/2025 2:10 PM EDT [facility] RBC 4.29 3.90 - 5.20 m/uL 01/11/2025 2:10 PM EDT [facility] Hemoglobin 13.8 11.5 - 15.5 g/dL 01/11/2025 2:10 PM EDT [facility] Hematocrit 41.5 36.0 - 46.0 % 01/11/2025 2:10 PM EDT [facility] MCV 96.7 80.0 - 100.0 fL 01/11/2025 2:10 PM EDT [facility] MCH 32.2 26.0 - 34.0 pg 01/11/2025 2:10 PM EDT [facility] MCHC 33.3 30.5 - 36.0 g/dL 01/11/2025 2:10 PM EDT [facility] RDW-CV 14.5 11.5 - 15.0 % 01/11/2025 2:10 PM EDT [facility] Platelet Count 265 150 - 400 k/uL 01/11/2025 2:10 PM EDT [facility] MPV 10.6 9.0 - 12.7 fL 01/11/2025 2:10 PM EDT [facility] Absolute nRBC <0.01 <0.01 k/uL 01/11/2025 2:10 PM EDT [facility] Blood BLOOD SPECIMEN / Unknown Venipuncture / Unknown 01/11/2025 1:48 PM EDT 01/11/2025 2:06 PM EDT us Sandra Park MD LABORATORY Final Result [facility] [address] [place] [address] * C-REACTIVE PROTEIN (01/11/2025 1:48 PM EDT) [facility] CRP <0.3 <0.9 mg/dL 01/12/2025 3:28 AM EDT [facility] Blood BLOOD SPECIMEN / Unknown Venipuncture / Unknown 01/11/2025 1:48 PM EDT 01/11/2025 2:06 PM EDT us Sandra Park MD LABORATORY Final Result Performing Organization Address City/[facility]/ZIP Co de Phone Number [facility] [address] [place] [address], * HEPATITIS C ANTIBODY IA WITH CONFIRMATION (01/11/2025 1:48 PM EDT) Pathologist [facility] Hep C Antibody IA Negative Negative 01/12/2025 11:34 AM EDT [facility] Comment:The result suggests no evidence of infection with Hepatitis C virus. Should recent infection be suspected, repeat testing may be considered 4-6 weeks after this draw. Blood BLOOD SPECIMEN / Unknown Venipuncture / Unknown 01/11/2025 1:48 PM EDT 01/11/2025 2:06 PM EDT us Sandra Park MD LABORATORY Final Result [facility] [address] [facility] [place] [phone], [place] from Last 3 Months Insurance Member Subscriber Plan / Payer (Ef fective 2022-Present) Name:rAiadna Paniagua Relation to Subscriber:Self Name:Ariadna Paniagua Payer ID:[id number] (NAIC) Group ID:[id number] Type:Medicaid Address: [place] [id number] Care Teams Co Chairman Relationship Specialty Start Date End Date Manuel Klein MD PCP - General Family Medicine 02/27/22 Manuel Klein MD Referring Family Medicine 02/12/22 Manuel Klein MD [address] [place] [address] Referring Family Medicine 07/06/24
--- OUTSIDE RECORDS SUMMARY | 2025-02-26 15:22 | XMS_ITS | Encounter Summary ---
Author Organization [facility] Address [address] [place] [address] Care Team Providers Care Crusher Name Role Phone Manuel Klein MD Unavailable [phone] Manuel Klein MD Primary Care Provider +[phone] Manuel Klein MD Unavailable [phone] Source Comments In the event this information is protected by the Federal Confidentiality of Alcohol and Drug AbusePatient Records regulations: The Federal rules restrict any use of the information to criminally investigate or prosecute any alcohol or drug abuse patient.[facility] Reason for Visit * Reason Onset Date Comments Refill Request 01/23/2025 Encounter Details Date Type Department Care Team (Late st Contact Info) Description 01/23/2025 Refill Rheumatology [address] [place], [place] [phone] Sandra Park MD [address] [place] [address] Refill Request Social History Tobacco [...] is lower risk 4 09/24/2022 Data from: https://www.neighborhoodatlas.medicine.[facility]/. Last address used for calculation [address] 09/24/2022 Comments No Sex and Gender [...] Contact Info) Description 03/08/2025 2:00 PM EDT [facility] Hematology/Oncology [address] [place] [address] BENLYSTA - 03/21/2025 9:00 AM EDT Office Visit [facility] [address] [place] [address] 4 week follow up IVIG - pt to see MASON for this appt per [employer] 03/21/2025 9:20 AM EDT Visit (SP) Office Hematology/Oncology [address] [place] [address] Jose Cho MD [address] [place] [place] [address] 4 week follow up IVIG - pt to see MASON for this appt per [employer] 03/21/2025 9:40 AM EDT Infusion Center Hematology/Oncology [address] [facility] [place] [address] Gabbi, Chair [address] [place] [address] 4 week follow up IVIG - pt to see MASON for this appt per [employer] 04/05/2025 2:00 PM EST Infusion Center Hematology/Oncology [address] [place] [address] BENLYSTA - 05/03/2025 2:00 PM [facility] Infusion Center Hematology/Oncology [address] [place] [address] BENLYSTA - documented as of this encounter Visit Diagnoses Diagnosis CHRISTIAN positive Other and unspecified nonspecific immunological findings Other systemic lupus erythematosus with other organ involvement (HCC) documented in this encounter Care Teams Crusher Relationship Specialty Start Date End Date Manuel Klein MD PCP - General Family Medicine 02/27/22 Manuel Klein MD Referring Family Medicine 02/12/22 Manuel Klein MD [address] [place] [address] Referring Family Medicine 07/06/24 documented as of this encounter
--- OUTSIDE RECORDS SUMMARY | 2025-02-26 15:22 | XMS_ITS | Encounter Summary ---
Author Organization [facility] Address [address] [place] [address] Care Team Providers Care Recovery Assistant Name Role Phone Manuel Klein MD Unavailable [phone] Manuel Klein MD Primary Care Provider +-4 Manuel Klein MD Unavailable [phone] Source Comments In the event this information is protected by the Federal Confidentiality of Alcohol and Drug AbusePatient Records regulations: The Federal rules restrict any use of the information to criminally investigate or prosecute any alcohol or drug abuse patient.[facility] Encounter Details Date Type Department Care Team (Late st Contact Info) Description 10/16/2022 Get Medical Advice Integrative and Lifestyle Medicine [address] [place] [address] Christie Phan MD [address], [place] [address] Trulicity Social History Tobacco Use [...] risk 4 09/24/2022 Data from: https://www.neighborhoodatlas.medicine.[facility]/. Last address used for calculation [address] 09/24/2022 Comments No Sex and Gender [...] PM EDT [facility] Hematology/Oncology [facility] [place] [address] BENLYSTA - 03/21/2025 9:00 AM EDT Office Visit [facility] Laboratory [facility] [place] [address] 4 week follow up IVIG - pt to see MASON for this appt per [facility] 03/21/2025 9:20 AM EDT Visit (SP) Office Hematology/Oncology [address] [facility] [place] [address] Jose Cho MD [address] [facility] [place] [address] 4 week follow up IVIG - pt to see MASON for this appt per [facility] 03/21/2025 9:40 AM EDT Infusion Center Hematology/Oncology [address] [facility] [place] [address] Gabbi, Chair [address] [facility] [place] [address] 4 week follow up IVIG - pt to see MASON for this appt per [facility] 04/05/2025 2:00 PM EST Infusion Center Hematology/Oncology [address] [facility] [place] [address] BENLYSTA - 05/03/2025 2:00 PM EST Infusion Center Hematology/Oncology [address] [facility] [place] [address] BENLYSTA - documented as of this encounter Visit Diagnoses Not on filedocumented in this encounter Care Teams Recovery Assistant Relationship Specialty Start Date End Date Manuel Klein MD PCP - General Family Medicine 02/27/22 Manuel Klein MD Referring Family Medicine 02/12/22 Manuel Klein MD [address] [place] [address] Referring Family Medicine 07/06/24 documented as of this encounter
--- OUTSIDE RECORDS SUMMARY | 2025-02-26 15:22 | XMS_ITS | Encounter Summary ---
Author Organization [facility] Address [address] [place] [address] Care Team Providers Care Roads And Parking Lots Sweeper Operator Name Role Phone Manuel Klein MD Unavailable [phone] Manuel Klein MD Primary Care Provider +-4 Manuel Klein MD Unavailable [phone] Source Comments In the event this information is protected by the Federal Confidentiality of Alcohol and Drug AbusePatient Records regulations: The Federal rules restrict any use of the information to criminally investigate or prosecute any alcohol or drug abuse patient.[facility] Encounter Details Date Type Department Care Team (Late st Contact Info) Description 02/23/2024 Patient Msg Rheumatology [address] [place], [place] [id number] Sandra Park MD [address] [place] [address] Appointment Request Social History Tobacco [...] is lower risk 4 09/24/2022 Data from: https://www.neighborhoodatlas.medicine.[facility]/. Last address used for calculation [address] 09/24/2022 Comments No Sex and Gender [...] EDT [facility] Hematology/Oncology [address] [place] [address] BENLYSTA - 03/21/2025 9:00 AM EDT Office Visit [facility] Laboratory [address] [place] [address] [place] [address] 4 week follow up IVIG - pt to see MASON for this appt per [facility] 03/21/2025 9:20 AM EDT Visit (SP) Office Hematology/Oncology [address] [place] [address] Jose Cho MD [address] [place] [address] 4 week follow up IVIG - pt to see MASON for this appt per [facility] 03/21/2025 9:40 AM EDT Infusion Center Hematology/Oncology [address] [place] [address] Gabbi, Chair [address] [place] [address] 4 week follow up IVIG - pt to see MASON for this appt per [facility] 04/05/2025 2:00 PM EST Infusion Center Hematology/Oncology [address] [place] [address] BENLYSTA - 05/03/2025 2:00 PM [facility] Infusion Center Hematology/Oncology [address] [place] [address] BENLYSTA - documented as of this encounter Visit Diagnoses Not on filedocumented in this encounter Care Teams Roads And Parking Lots Sweeper Operator Relationship Specialty Start Date End Date Manuel Klein MD PCP - General Family Medicine 02/27/22 Manuel Klein MD Referring Family Medicine 02/12/22 Manuel Klein MD [address] [place] [address] Referring Family Medicine 07/06/24 documented as of this encounter
--- OUTSIDE RECORDS SUMMARY | 2025-02-26 15:22 | XMS_ITS | Encounter Summary ---
Author Organization [facility] Address [facility] [place] [address] Care Team Providers Care Pellet Post Inspector Name Role Phone Manuel Klein MD Unavailable [phone] Manuel Klein MD Primary Care Provider +-4 Manuel Klein MD Unavailable [phone] Source Comments In the event this information is protected by the Federal Confidentiality of Alcohol and Drug AbusePatient Records regulations: The Federal rules restrict any use of the information to criminally investigate or prosecute any alcohol or drug abuse patient.[facility] Encounter Details Date Type Department Care Team (Late st Contact Info) Description 04/10/2023 Patient Msg Integrated Medicine [address] [place] [address] Christie Phan MD [address], [place] [address] Labs Social History Tobacco Use [...] 4 09/24/2022 Data from: https://www.neighborhoodatlas.medicine.[facility]/. Last address used for calculation [address] 09/24/2022 Comments No Sex and Gender [...] Author No 12/25/2014 11:14 AM EDT Chichi DeJ esus documented as of this encounter Mental Status [...] EDT [facility] Hematology/Oncology [address] [facility] [facility] [place] [address] BENLYSTA - 03/21/2025 9:00 AM EDT Office Visit [facility] Laboratory [address] [place] [address] [place] [address] 4 week follow up IVIG - pt to see MASON for this appt per [facility] 03/21/2025 9:20 AM EDT Visit (SP) Office Hematology/Oncology [address] [facility] [facility] [place] [address] Jose Cho MD [address] [facility] [facility] [place] [address] 4 week follow up IVIG - pt to see MASON for this appt per [facility] 03/21/2025 9:40 AM EDT Infusion Center Hematology/Oncology [address] [facility] [place] [address] Gabbi, Chair 4 [address] [facility] [facility] [place] [address] 4 week follow up IVIG - pt to see MASON for this appt per [facility] 04/05/2025 2:00 PM EST Infusion Center Hematology/Oncology [address] [facility] [address] BENLYSTA - 05/03/2025 2:00 PM [facility] Infusion Center Hematology/Oncology [address] [facility] [place] [address] BENLYSTA - documented as of this encounter Visit Diagnoses Not on filedocumented in this encounter Care Teams Pellet Post Inspector Relationship Specialty Start Date End Date Manuel Klein MD PCP - General Family Medicine 02/27/22 Manuel Klein MD Referring Family Medicine 02/12/22 Manuel Klein MD [address] [place] [address] Referring Family Medicine 07/06/24 documented as of this encounter
--- OUTSIDE RECORDS SUMMARY | 2025-02-26 15:22 | XMS_ITS | Encounter Summary ---
Author Organization [facility] Address [id number] [address] [place] [address] Care Team Providers Care Tailman Name Role Phone Unavailable Primary Care Provider Unavailabl e Encounter Details Date Type Department Care Team (Late st Contact Info) Description 05/05/2024 Orders Only [facility] [address] [place] [address] Felicia Payne CMA Cold extremities; Pain of lower extremity, unspecified laterality; Systemic lupus erythematosus ([facility]) Social History Tobacco Use Types Packs/Day [...]
--- OUTSIDE RECORDS SUMMARY | 2025-02-26 15:22 | XMS_ITS | Encounter Summary ---
Author Organization [facility] Address [address] [place] [address] Care Team Providers Care Spanish Teacher Name Role Phone Manuel Klein MD Unavailable [phone] Manuel Klein MD Primary Care Provider +-4 Manuel Klein MD Unavailable [phone] Source Comments In the event this information is protected by the Federal Confidentiality of Alcohol and Drug AbusePatient Records regulations: The Federal rules restrict any use of the information to criminally investigate or prosecute any alcohol or drug abuse patient.[facility] Reason for Visit * Reason Comments Results Encounter Details Date Type Department Care Team (Late st Contact Info) Description 02/21/2025 Telephone Cancer Appts [facility] [place] [address] Fara Lopez APRN.[facility] [address] [place] [address] Results Social History Tobacco Use Types Packs/Day [...] is lower risk 4 09/24/2022 Data from: https://www.neighborhoodatlas.medicine.[facility]/. Last address used for calculation [address] 09/24/2022 Comments No Sex and Gender [...] AM EDT Pt aware of results via [employer]. Questions asked in StyleQ encounter, response sent by Fara. RTC with Mason, 4 weeks Enma Hamm RN * Telephone Encounter - Sherrie Cortes - 02/21/2025 11:55 AM EDT Images from the original note were not included. documented in this encounter Plan of Treatment Upcoming Encounters Date Type Department Care Team (Latest Contact Info) Description 03/08/2025 2:00 PM EDT Infusion Center Hematology/Oncology [address] [place] [address] BENLYSTA - 03/21/2025 9:00 AM EDT Office Visit [facility] [address] [place] [address] 4 week follow up IVIG - pt to see MASON for this appt per Fara 03/21/2025 9:20 AM EDT Visit (SP) Office Hematology/Oncology [address] [facility] [place] [address] Jose Cho MD [address] [facility] [place] [address] 4 week follow up IVIG - pt to see MASON for this appt per [facility] 03/21/2025 9:40 AM EDT Infusion Center Hematology/Oncology [address] [place] [address] Gabbi, Chair 4 [address] [facility] [place] [address] 4 week follow up IVIG - pt to see MASON for this appt per [facility] 04/05/2025 2:00 PM EST Infusion Center Hematology/Oncology [address] [facility] [place] [address] BENLYSTA - 05/03/2025 2:00 PM [facility] Infusion Center Hematology/Oncology [address] [facility] [place] [address] BENLYSTA - documented as of this encounter Visit Diagnoses Not on filedocumented in this encounter Care Teams Spanish Teacher Relationship Specialty Start Date End Date Manuel Klein MD PCP - General Family Medicine 02/27/22 Manuel Klein MD Referring Family Medicine 02/12/22 Manuel Klein MD [address] [place] [address] Referring Family Medicine 07/06/24 documented as of this encounter
--- OUTSIDE RECORDS SUMMARY | 2025-02-26 15:22 | XMS_ITS | Encounter Summary ---
Author Organization [facility] Address [address] [place] [address] Care Team Providers Care Shell Fisherman Name Role Phone Manuel Klein MD Unavailable [phone] Manuel Klein MD Primary Care Provider +-4 Manuel Klein MD Unavailable [phone] Source Comments In the event this information is protected by the Federal Confidentiality of Alcohol and Drug AbusePatient Records regulations: The Federal rules restrict any use of the information to criminally investigate or prosecute any alcohol or drug abuse patient.[facility] Reason for Visit * Reason Comments Lab Orders Encounter Details Date Type Department Care Team (Late st Contact Info) Description 02/12/2025 Telephone Hematology/Oncology [address] [place] [address] [place] [address] Enma Hamm, feather duster winder Orders Social History Tobacco Use Types Packs/Day [...] risk 4 09/24/2022 Data from: https://www.neighborhoodatlas.medicine.[facility]/. Last address used for calculation [address] 09/24/2022 Comments No Sex and Gender [...] Contact Info) Description 03/08/2025 2:00 PM EDT [facility] Hematology/Oncology [address] [place] [address] [place] [address] BENLYSTA - 03/21/2025 9:00 AM EDT Office Visit [facility] Laboratory [address] [facility] [place] [address] 4 week follow up IVIG - pt to see MASON for this appt per Fara 03/21/2025 9:20 AM EDT Visit (SP) Office Hematology/Oncology [address] [place] [address] Jose Cho MD [address] [facility] [place] [address] 4 week follow up IVIG - pt to see MASON for this appt per [facility] 03/21/2025 9:40 AM EDT Infusion Center Hematology/Oncology [address] [place] [address] Gabbi, Chair [address] [facility] [place] [address] 4 week follow up IVIG - pt to see MASON for this appt per [facility] 04/05/2025 2:00 PM EST Infusion Center Hematology/Oncology [address] [facility] [place] [address] BENLYSTA - 05/03/2025 2:00 PM [facility] Infusion Center Hematology/Oncology [address] [facility] [place] [address] BENLYSTA - documented as of this encounter Results * (ABNORMAL) IMMUNOGLOBULINS,IGG,IGA,IGM (02/21/2025 8:51 AM EDT) Pathologist [facility] IgG 610(L) 700 - 1,600 mg/dL 02/21/2025 6:21 PM EDT [facility] IgA 184 70 - 400 mg/dL 02/21/2025 6:21 PM EDT [facility] IgM 454(H) 40 - 230 mg/dL 02/21/2025 6:21 PM EDT [facility] Blood BLOOD SPECIMEN / Unknown Venipuncture / Unknown 02/21/2025 8:51 AM EDT 02/21/2025 8:51 AM EDT us Fara Lopez BEAM RACKER.PRECISION HONING MACHINE OPERATOR LABORATORY Final Resul t [facility] [address] [id number], [place] * FOLATE, SERUM (02/21/2025 8:51 AM EDT) Folate >20.0 >4.7 ng/mL 02/21/2025 10:05 PM EDT [facility] Comment: A result of > 20 ng/mL is not necessarily indicative of a pathologic or treatable condition: it reflects a limitation of the test methodology. Assay reference range: 4.8 to 24.2 ng/mL. Suitable for detection of folate deficiency. Reference: Folate III (Folate III) [package insert V 1.0 Khmer]. [facility], [place], [place]: March 2015. Blood BLOOD SPECIMEN / Unknown Venipuncture / Unknown 02/21/2025 8:51 AM EDT 02/21/2025 8:51 AM EDT us Fara Lopez BEAM RACKER.PRECISION HONING MACHINE OPERATOR LABORATORY Final Resul t Performing Organization Address City/[facility]/ZIP Co de Phone Number [facility] [address] [id number], [place] * VITAMIN B12 (02/21/2025 8:51 AM EDT) Vitamin B12 694 232 - 1,245 pg/mL 02/21/2025 10:05 PM EDT [facility] Blood BLOOD SPECIMEN / Unknown Venipuncture / Unknown 02/21/2025 8:51 AM EDT 02/21/2025 8:51 AM EDT us Fara Lopez BEAM RACKER.PRECISION HONING MACHINE OPERATOR LABORATORY Final Resul t [facility] [address] [place] [id number], [place] * FERRITIN (02/21/2025 8:51 AM EDT) Ferritin 83.6 14.7 - 205.1 ng/mL 02/21/2025 10:05 PM EDT [facility] Blood BLOOD SPECIMEN / Unknown Venipuncture / Unknown 02/21/2025 8:51 AM EDT 02/21/2025 8:51 AM EDT Fara Lopez BEAM RACKER.[facility] Final Resul t Performing Organization Address City/[facility] Co de Phone Number [facility] [address] [place] [address], [place] * (ABNORMAL) IRON AND TIBC (02/21/2025 8:51 AM EDT) Pathologist [facility] Iron 156 41 - 186 ug/dL 02/21/2025 9:46 PM EDT [facility] TIBC 443(H) 232 - 386 ug/dL 02/21/2025 9:46 PM EDT [facility] Transferrin Saturation 35.2 15.0 - 57.0 % 02/21/2025 9:46 PM EDT [facility] Blood BLOOD SPECIMEN / Unknown Venipuncture / Unknown 02/21/2025 8:51 AM EDT 02/21/2025 8:51 AM EDT Fara Lopez APRN.[facility] Final Resul t Performing Organization Address City/[facility]/ZIP Co de Phone Number [facility] [address] [place] [address], [place] * (ABNORMAL) COMPREHENSIVE METABOLIC PANEL (02/21/2025 8:51 AM EDT) Protein, Total 7.6 6.3 - 8.0 g/dL 02/21/2025 9:45 AM EDT [facility] Albumin 4.3 3.9 - 4.9 g/dL 02/21/2025 9:45 AM EDT [facility] Calcium, Total 10.2 8.5 - 10.2 mg/dL 02/21/2025 9:45 AM [facility] Bilirubin, Total 0.3 0.2 - 1.3 mg/dL 02/21/2025 9:45 AM [facility] Alkaline Phosphatase 83 34 - 123 U/L 02/21/2025 9:45 AM [facility] AST 20 13 - 35 U/L 02/21/2025 9:45 AM [facility] ALT 49(H) 7 - 38 U/L 02/21/2025 9:45 AM [facility] Glucose 248(H) 74 - 99 mg/dL 02/21/2025 9:45 AM [facility] Comment: The [place] Diabetes Association (ADA) provides guidance for cutoff [...] Standards of Medical Care in Diabetes 2016, [place] Diabetes Association. Diabetes Care. 2016.39(Suppl 1). BUN 16 7 - 21 mg/dL 02/21/2025 9:45 AM [facility] Creatinine 0.49(L) 0.58 - 0.96 mg/dL 02/21/2025 9:45 AM [facility] Sodium 138 136 - 144 mmol/L 02/21/2025 9:45 AM [facility] Potassium 4.1 3.7 - 5.1 mmol/L 02/21/2025 9:45 AM [facility] Chloride 101 98 - 107 mmol/L 02/21/2025 9:45 AM [facility] CO2 20(L) 22 - 30 mmol/L 02/21/2025 9:45 AM EDT [facility] Anion Gap 17(H) 8 - 15 mmol/L 02/21/2025 9:45 AM EDT [facility] Estimated Glomerular Filtration Rate 119 >=60 mL/min/1. 73m 02/21/2025 9:45 AM EDT [facility] Comment:Estimated Glomerular Filtration Rate (eGFR) [...] 02/21/2025 8:51 AM EDT us Fara Lopez BEAM RACKER.PRECISION HONING MACHINE OPERATOR LABORATORY Final Resul t [facility] [address] [place] [address] * (ABNORMAL) COMPLETE BLOOD COUNT AND DIFFERENTIAL (02/21/2025 8:51 AM EDT) WBC 13.16(H) 3.70 - 11.00 k/uL 02/21/2025 8:59 AM EDT [facility] RBC 4.77 3.90 - 5.20 m/uL 02/21/2025 8:59 AM EDT [facility] Hemoglobin 15.1 11.5 - 15.5 g/dL 02/21/2025 8:59 AM EDT [facility] Hematocrit 46.0 36.0 - 46.0 % 02/21/2025 8:59 AM EDT [facility] MCV 96.4 80.0 - 100.0 fL 02/21/2025 8:59 AM EDT [facility] MCH 31.7 26.0 - 34.0 pg 02/21/2025 8:59 AM EDT [facility] MCHC 32.8 30.5 - 36.0 g/dL 02/21/2025 8:59 AM EDT [facility] RDW-CV 14.3 11.5 - 15.0 % 02/21/2025 8:59 AM EDT [facility] Platelet Count 305 150 - 400 k/uL 02/21/2025 8:59 AM EDT [facility] MPV 9.9 9.0 - 12.7 fL 02/21/2025 8:59 AM EDT [facility] Neutrophils % 75.5 % 02/21/2025 8:59 AM EDT [facility] Abs Neut 9.94(H) 1.45 - 7.50 k/uL 02/21/2025 8:59 AM EDT [facility] Lymphocytes % 14.4 % 02/21/2025 8:59 AM EDT [facility] Abs Lymph 1.89 1.00 - 4.00 k/uL 02/21/2025 8:59 AM EDT [facility] Monocytes % 7.0 % 02/21/2025 8:59 AM EDT [facility] Abs [place] 0.92(H) <0.87 k/uL 02/21/2025 8:59 AM EDT [facility] Eosinophils % 0.8 % 02/21/2025 8:59 AM EDT [facility] Abs Eosin 0.11 <0.46 k/uL 02/21/2025 8:59 AM EDT [facility] Basophils % 0.7 % 02/21/2025 8:59 AM EDT [facility] Abs Baso 0.09 <0.11 k/uL 02/21/2025 8:59 AM EDT [facility] Immature Granulocytes % 1.6 % 02/21/2025 8:59 AM EDT [facility] Abs Immature Gran 0.21(H) <0.10 k/uL 02/21/2025 8:59 AM EDT [facility] NRBC 0.0 /100 WBC 02/21/2025 8:59 AM EDT [facility] Absolute nRBC <0.01 <0.01 k/uL 02/21/2025 8:59 AM EDT [facility] Diff Type Auto 02/21/2025 8:59 AM EDT [facility] Blood BLOOD SPECIMEN / Unknown Venipuncture / Unknown 02/21/2025 8:51 AM EDT 02/21/2025 8:51 AM EDT us Fara Lopez BEAM RACKER.PRECISION HONING MACHINE OPERATOR LABORATORY Final Resul t [facility] [address] [place] [address] documented in this encounter Visit Diagnoses Diagnosis Hypogammaglobulinemia (HCC)- Primary Hypogammaglobulinaemia, unspecified Vitamin B12 deficiency Other B-complex deficiencies Other iron deficiency anemia documented in this encounter Care Teams Shell Fisherman Relationship Specialty Start Date End Date Manuel Klein MD PCP - General Family Medicine 02/27/22 Manuel Klein MD Referring Family Medicine 02/12/22 Manuel Klein MD [address] [place] [address] Referring Family Medicine 07/06/24 documented as of this encounter
--- OUTSIDE RECORDS SUMMARY | 2025-02-26 15:22 | XMS_ITS | Encounter Summary ---
Author Organization [facility] Address [address] [place] [address] Care Team Providers Care Channel Cementer Outsole Machine Name Role Phone Manuel Klein MD Unavailable [phone] Manuel Klein MD Primary Care Provider +-4 Manuel Klein MD Unavailable [phone] Source Comments In the event this information is protected by the Federal Confidentiality of Alcohol and Drug AbusePatient Records regulations: The Federal rules restrict any use of the information to criminally investigate or prosecute any alcohol or drug abuse patient.[facility] Encounter Details Date Type Department Care Team (Late st Contact Info) Description 01/26/2024 [place] [address] Provider, Ccf Important changes to Wellness RX [...] lower risk 4 09/24/2022 Data from: https://www.neighborhoodatlas.[facility]/. Last address used for calculation [address] [facility] 09/24/2022 Comments No Sex and Gender Information [...] Contact Info) Description 03/08/2025 2:00 PM EDT [facility] Hematology/Oncology [address] [place] [address] BENLYSTA - 03/21/2025 9:00 AM EDT Office Visit [facility] [place] [address] 4 week follow up IVIG - pt to see MASON for this appt per Fara 03/21/2025 9:20 AM EDT Visit (SP) Office Hematology/Oncology [facility] [place] [address] Jose Cho MD [address] [facility] [place] [address] 4 week follow up IVIG - pt to see MASON for this appt per Fara 03/21/2025 9:40 AM EDT Infusion Center Hematology/Oncology [address] [place] [address] Gabbi, Chair [address] [facility] [place] [address] 4 week follow up IVIG - pt to see MASON for this appt per Fara 04/05/2025 2:00 PM EST Infusion Center Hematology/Oncology [address] [place] [address] BENLYSTA - 05/03/2025 2:00 PM [facility] Infusion Center Hematology/Oncology [address] [facility] [place] [address] BENLYSTA - documented as of this encounter Visit Diagnoses Not on filedocumented in this encounter Care Teams Channel Cementer Outsole Machine Relationship Specialty Start Date End Date Manuel Klein MD PCP - General Family Medicine 02/27/22 Manuel Klein MD Referring Family Medicine 02/12/22 Manuel Klein MD [address] [place] [address] Referring Family Medicine 07/06/24 documented as of this encounter
--- OUTSIDE RECORDS SUMMARY | 2025-02-26 15:22 | XMS_ITS | Encounter Summary ---
Author Organization [facility] Address [address] [place] [address] Care Team Providers Care Plan Consultant Name Role Phone Manuel Klein MD Unavailable [phone] Manuel Klein MD Primary Care Provider +-4 Manuel Klein MD Unavailable [phone] Source Comments In the event this information is protected by the Federal Confidentiality of Alcohol and Drug AbusePatient Records regulations: The Federal rules restrict any use of the information to criminally investigate or prosecute any alcohol or drug abuse patient.[facility] Encounter Details Date Type Department Care Team (Late st Contact Info) Description 02/18/2024 Get Medical Advice Rheumatology [address] [place], [place] [id number] Sandra Park MD [address] [place] [address] Referral Social History Tobacco Use [...] is lower risk 4 09/24/2022 Data from: https://www.neighborhoodatlas.medicine.[facility]/. Last address used for calculation [address] 09/24/2022 Comments No Sex and Gender [...] 2:00 PM EDT Infusion Center Hematology/Oncology [address] [facility] [place] [address] BENLYSTA - 03/21/2025 9:00 AM EDT Office Visit [facility] [address] [place] [address] 4 week follow up IVIG - pt to see MASON for this appt per Fara 03/21/2025 9:20 AM EDT Visit (SP) Office Hematology/Oncology [address] [place] [address] Jose Cho MD [address] [place] [address] 4 week follow up IVIG - pt to see MASON for this appt per Fara 03/21/2025 9:40 AM EDT Infusion Center Hematology/Oncology [address] [facility] [place] [address] Gabbi, Chair [address] [place] [address] 4 week follow up IVIG - pt to see MASON for this appt per Fara 04/05/2025 2:00 PM EST Infusion Center Hematology/Oncology [address] [place] [address] BENLYSTA - 05/03/2025 2:00 PM EST Infusion Center Hematology/Oncology [address] [facility] [place] [address] BENLYSTA - documented as of this encounter Visit Diagnoses Diagnosis 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
--- OUTSIDE RECORDS SUMMARY | 2025-02-26 15:23 | XMS_ITS | Clinical Summary ---
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 02/04 Steroid-induced [...] Encounters Date Type Department Care Team Description 02/26/2025 Travel 02/23/2025 Travel 02/19/2025 Travel 02/14/2025 3:20 PM EDT Office Visit [facility] [address] [place] [phone] Cynthia English MD Pilonidal cyst (Primary Dx); Hidradenitis suppurativa 02/14/2025 Bamboo flowsheet [facility] [address] [place] [address] Cynthia English MD 02/14/2025 Travel 01/30/2025 Results Follow-Up [facility] [address] [place] [address] Sabi Barker LPN Left breast US limited 01/26/2025 11:45 AM EDT Ancillary Procedure [facility] [address] [place] [address] Other benign mammary dysplasias of left breast 01/26/2025 Travel 12/07/2024 Refill [facility] [address] [place] [address] Андрей eHarn, Eustachian tube dysfunction, bilateral; Non-recurrent acute serous otitis media of both ears 12/01/2024 Telephone [facility] [address] [place] [address] Oly Plascencia PA 11/28/2024 Telephone [facility] [...] Grandmother Clelaura Rheum arthritis Maternal Grandmother Clelaura Crohn's disease Mother Nieves Thyroid disease Mother Nieves No Known Problems Sister 1 Lung disease Son Relation Name Status Comments Child Alive Daughter 1 Alive 3 daughters Daughter 2 Alive Daughter 3 Alive Father Micheal Maternal Grandmother Clelaura Mother Nieves Alive Mother's Sister Sister Alive [...] Associates [address] [facility] [address] [place] [address] Terence Blum MD [address] [facility] [address] [place] [address] 03/19/2025 10:20 AM EDT Office Visit [facility] [address] [facility] [address] [place] [address] Mary Grace Mejias MD [address] [facility] [address] [place] [address] 07/25/2025 11:00 AM EST Office Visit [facility] [address] [place] [address] Cynthia English MD [address] [place] [address] Health Maintenance Due Date Last [...] assess stability. BI-RADS 3 ELECTRONICALLY SIGNED BY: Marshall Oleary 01/26/2025 3:52 PM EDT Examination: BI US [...] EST Narrative 04/07/2024 8:41 [place] [address] Mammography Report Signed Patient: JONES PANIAGUA MR#: [id number] : 1980 Acct:[id number] Age/Sex: 43 / F ADM Date: 04/06/24 Loc: US Attending Dr: Luan Valdivia D.O. Ordering Physician: Luan Valdivia D.O. Results: Date of Service: 04/06/24 Follow Up: Procedure(s): MM tomosynthesis diagnostic BI Accession Number(s): [id number] cc: GAY ENCISO ; Luan Valdivia D.O. Patient Name: JONES PANIAGUA MR#: [id number] : 1980 Exam Date: 04/06/2024 Ordering Doctor: [...] M.D. Signed By: 04/07/2441 DD/ 9 TD/TT: [employer] Director: Procedure Note Radiology, Radiologist, MD - 04/07/2024 [place] [address] Mammography Report Signed Patient: JONES PANIAGUA BMR#: [id number] : 1980Acct:[id number] Age/Sex: 43 / FADM Date: 04/06/24 Loc: US Attending Dr: Luan Valdivia D.O. Ordering Physician: Luan Valdivia D.O.Results: Date of Service: 04/06/24Follow Up: Procedure(s): MM tomosynthesis diagnostic BI Accession Number(s): [id number] cc: GAY ENCISO ; Luan Valdivia D.O. Patient Name: JONES PANIAGUA MR#: [id number] : 1980 Exam Date: 04/06/2024 Ordering Doctor: DR Luan Valdivia . RADIOLOGY REPORT PROCEDURE: MM TOMOSYNTHESIS DIAGNOSTIC BI, 04/06/2024, 15:20 US BREAST BI LIMITED, 04/06/2024, 15:37 COMPARISON: MM TOMOSYNTHESIS SCREENING BI, 09/23/2023. MG MAMM [id number] MARK CAD, 09/01/2022. MG MAMM SCREEN 3D [...] M.D. Signed By:04/07/24 0841 DD/ 0840 TD/TT: [employer] Director: [facility] Final Result from Last 3 Months or Most Recently Relevant to Health Maintenance Insurance [employer] Care Teams Watch Engine Operator Relationship Specialty Start Date End Date Gay Enciso MD [address] [place] [address] Referring Physician Family Medicine 07/18/24
--- OUTSIDE RECORDS SUMMARY | 2025-02-26 15:23 | XMS_ITS | Encounter Summary ---
Author Organization [facility] Address [address] [place] [address] Care Team Providers Care Clay Transporter Name Role Phone Aime Davidson MD, Lui Nunez Primary Care Provid er Gay De La Torre(Historical) SALES REPRESENTATIVE PUBLICATIONS.EMT BASIC Primary Care Provider Unavailable Manuel Klein MD Unavailable [phone] Manuel Klein MD Primary Care Provider [phone] Manuel Klein MD Unavailable [phone] Source Comments In the event this information is protected by the Federal Confidentiality of Alcohol and Drug AbusePatient Records regulations: The Federal rules restrict any use of the information to criminally investigate or prosecute any alcohol or drug abuse patient.[facility] Encounter Details Date Type Department Care Team (Late st Contact Info) Description 05/01/2015 Get Medical Advice Internal Medicine [facility] [place] [address] Lui Salomon Jr., MD [address] [place] [address] RE: Medication Question (Not Renewal) [...] [facility] H[facility]ology[facility]Oncology [address] [place] [address] BENLYSTA - 03/21/2025 9:00 AM EDT Office Visit [facility] [place] [address] 4 week follow up IVIG - pt to see MASON for this appt per Fara 03/21/2025 9:20 AM EDT Visit (SP) Office Hematology/Oncology [facility] [place] [address] Jose Cho MD [address] [facility] [place] [address] 4 week follow up IVIG - pt to see MASON for this appt per Fara 03/21/2025 9:40 AM EDT Infusion Center Hematology/Oncology [address] [facility] [place] [address] Gabbi, Chair 4 [address] [facility] [place] [address] 4 week follow up IVIG - pt to see MASON for this appt per Fara 04/05/2025 2:00 PM EST Infusion Center Hematology/Oncology [address] [facility] [place] [address] BENLYSTA - 05/03/2025 2:00 PM EST Infusion Center Hematology/Oncology [address] [place] [address] [place] [address] BENLYSTA - documented as of this encounter Visit Diagnoses Not on filedocumented in this encounter Care Teams Clay Transporter Relationship Specialty Start Date End Date Lui Salomon Jr., MD PCP - General Internal Medicine 05/31/14 07/08/20 Gay De La Torre(Historical), SALES REPRESENTATIVE PUBLICATIONS.EMT BASIC PCP - General Family Medicine 10/24/21 02/26/22 Manuel Klein MD PCP - General Family Medicine 02/27/22 Manuel Klein MD Referring Family Medicine 02/12/22 Manuel Klein MD [address] [place] [facility] [place] [place] [address] Referring Family Medicine 07/06/24 documented as of this encounter
--- OUTSIDE RECORDS SUMMARY | 2025-02-26 15:23 | XMS_ITS | Encounter Summary ---
Author Organization [facility] Address [facility] [address] Care Team Providers Care Spray Painter Helper Name Role Phone Manuel Klein MD Unavailable [phone] Manuel Klein MD Primary Care Provider +-4 Manuel Klein MD Unavailable [phone] Source Comments In the event this [...] Advice Infectious Disease [address] [place] [address] Tiffany Head DO [address] [place] [address] Appointment Social History Tobacco Use Types [...] risk 4 09/24/2022 Data from: https://www.neighborhoodatlas.medicine.[facility]/. Last address used for calculation [address] 09/24/2022 Comments No Sex and Gender [...] 2:00 PM EDT [facility]Oncology [address] [address] BENLYSTA - 03/21/2025 9:00 AM EDT Office Visit [facility] [address] [place] [address] [place] [address] 4 week follow up IVIG - pt to see MASON for this appt per [facility] 03/21/2025 9:20 AM EDT Visit (SP) Office Hematology/Oncology [address] [address] Jose Cho MD [address] [address] 4 week follow up IVIG - pt to see MASON for this appt per [facility] 03/21/2025 9:40 AM EDT Infusion Center Hematology/Oncology [address] [address] Gabbi, Chair 4 [address] [address] 4 week follow up IVIG - pt to see MASON for this appt per [facility] 04/05/2025 2:00 PM EST Infusion Center Hematology/Oncology [address] [facility] [address] BENLYSTA - 05/03/2025 2:00 PM EST Infusion Center Hematology/Oncology [address] [address] BENLYSTA - documented as of this encounter Visit Diagnoses Not on filedocumented in this encounter Care Teams Spray Painter Helper Relationship Specialty Start Date End Date Manuel Klein MD PCP - General Family Medicine 02/27/22 Manuel Klein MD Referring Family Medicine 02/12/22 Manuel Klein MD [address] [place] [address] Referring Family Medicine 07/06/24 documented as of this encounter
--- OUTSIDE RECORDS SUMMARY | 2025-02-26 15:23 | XMS_ITS | Encounter Summary ---
Author Organization [facility] Address [address] [place] [address] Care Team Providers Care Kier Operator Name Role Phone Aime Davidson MD, Lui Nunez Primary Care Provid er Gay De La Torre(Historical) INTERIOR WIRER.DIRECTOR OF SAFETY AND SECURITY Primary Care Provider Unavailable Manuel Klein MD Unavailable [phone] Manuel Klein MD Primary Care Provider [phone] Manuel Klein MD Unavailable [phone] Source Comments In the event this information is protected by the Federal Confidentiality of Alcohol and Drug AbusePatient Records regulations: The Federal rules restrict any use of the information to criminally investigate or prosecute any alcohol or drug abuse patient.[facility] Encounter Details Date Type Department Care Team (Late st Contact Info) Description 12/31/2014 Patient Msg Medical Records [address] [place] [address] Provider, Ccf RE:Infection Social History Tobacco Use [...] Info) Description 03/08/2025 2:00 PM EDT [facility] Hematology/Oncology [address] [place] [address] [place] [address] BLANKATA - 03/21/2025 9:00 AM EDT Office Visit [facility] Laboratory [address] [place] [address] [place] [address] 4 week follow up IVIG - pt to see MASON for this appt per Fara 03/21/2025 9:20 AM EDT Visit (SP) Office Hematology/Oncology [address] [place] [address] Jose Cho MD [address] [place] [address] [place] [address] 4 week follow up IVIG - pt to see MASON for this appt per Fara 03/21/2025 9:40 AM EDT Infusion Center Hematology/Oncology [address] [facility] [place] [address] Gabbi, Chair [address] [place] [address] 4 week follow up IVIG - pt to see MASON for this appt per Fara 04/05/2025 2:00 PM EST Infusion Center Hematology/Oncology [address] [facility] [place] [address] BENLYSTA - 05/03/2025 2:00 PM EST Infusion Center Hematology/Oncology [address] [facility] [place] [address] BENLYSTA - documented as of this encounter Visit Diagnoses Not on filedocumented in this encounter Care Teams Kier Operator Relationship Specialty Start Date End Date Lui Salomon Jr., MD PCP - General Internal Medicine 05/31/14 07/08/20 Gay De La Torre(Historical), INTERIOR WIRER.DIRECTOR OF SAFETY AND SECURITY PCP - General Family Medicine 10/24/21 02/26/22 Manuel Klein MD PCP - General Family Medicine 02/27/22 Manuel Klein MD Referring Family Medicine 02/12/22 Manuel Klein MD [facility] [place] [address] Referring Family Medicine 07/06/24 documented as of this encounter
--- OUTSIDE RECORDS SUMMARY | 2025-02-26 15:23 | XMS_ITS | Encounter Summary ---
Author Organization [facility] Address [facility] [place] [address] Care Team Providers Care Fire Supervisor Name Role Phone Manuel Klein MD Unavailable [phone] Manuel Klein MD Primary Care Provider [phone]-4 Manuel Klein MD Unavailable [phone] Source Comments In the event this information is protected by the Federal Confidentiality of Alcohol and Drug AbusePatient Records regulations: The Federal rules restrict any use of the information to criminally investigate or prosecute any alcohol or drug abuse patient.[facility] Encounter Details Date Type Department Care Team (Late st Contact Info) Description 02/11/2023 Patient [facility] HB[facility]3 [address] [place] [address] Provider, Ccf Huseyin Approved - Action Needed! [...] risk 4 09/24/2022 Data from: https://www.neighborhoodatlas.medicine.[facility].edu/. Last address used for calculation [address] 09/24/2022 Comments No Sex and Gender [...] Contact Info) Description 03/08/2025 2:00 PM EDT [facility] Center Hematology/Oncology [address] [place] [address] BENLYSTA - 03/21/2025 9:00 AM EDT Office Visit [facility] [address] [place] [address] 4 week follow up IVIG - pt to see MASON for this appt per Fara 03/21/2025 9:20 AM EDT Visit (SP) Office Hematology/Oncology [address] [place] [address] Jose Cho MD [address] [place] [address] 4 week follow up IVIG - pt to see MASON for this appt per Fara 03/21/2025 9:40 AM EDT Infusion Center Hematology/Oncology [address] [place] [address] Gabbi, Chair [address] [place] [address] 4 week follow up IVIG - pt to see MASON for this appt per Fara 04/05/2025 2:00 PM EST Infusion Center Hematology/Oncology [address] [place] [address] [place] [address] BENLYSTA - 05/03/2025 2:00 PM [facility] Infusion Center Hematology/Oncology [address] [place] [address] [place] [address] BENLYSTA - documented as of this encounter Visit Diagnoses Not on filedocumented in this encounter Care Teams Fire Supervisor Relationship Specialty Start Date End Date Manuel Klein MD PCP - General Family Medicine 02/27/22 Manuel Klein MD Referring Family Medicine 02/12/22 Manuel Klein MD [address] [place] [address] Referring Family Medicine 07/06/24 documented as of this encounter
--- OUTSIDE RECORDS SUMMARY | 2025-02-26 15:23 | XMS_ITS | Patient Health Record ---
Author Organization [facility] [place] Address [address] [place] [address] Care Team Providers Care Second Language Tutor Name Role Phone Britt Gay Primary Care Provider Víctor Klein [phone] Allergies Allergen (clinical drug ingredient) Drug/Non Drug [...] ctive Results Component Value Reference Range Notes H. pylori Stool Ag, EIA Reviewed date:10/26/2024 09:21:53 AM Interpretation: Performing Lab: Notes/Report: STO[facility] , H. pylori Stool Ag, EIA Negative Negative Performed at: - [facility] [address] [id number] School Speech Therapist: Doyle Mendenhall PhD, Phone: [phone] Performing Lab: see note LC - [facility] LB GLYCOHEMOGLOBIN A1C Reviewed date:02/26/2025 09:22:15 AM Interpretation: Performing Lab: Notes/Report: [facility] , Glycohemoglobin A1C 8.3 4.5-6.2 % ADA RECOMMENDED LIMIT 4.0 - 6.0 ADA THERAPEUTIC TARGET < 7.0 ACTION SUGGESTED > 7.0 Estimated Average Glucose 192 Performing Lab: see note - [facility] LB CBC AUTO DIFF Reviewed date:04/06/2024 03:52:49 PM Interpretation: Performing Lab: Notes/Report: [facility] , White Blood Count 11.4 4.0-11.0 [...] Performing Lab: see note ML - [facility] LB FREE T4 Reviewed date:04/07/2024 08:30:55 AM Interpretation: Performing Lab: Notes/Report: [facility] , Free T4 1.01 0.76-1.46 ng/dL Performing Lab: see note ML - [facility] LB GLYCOHEMOGLOBIN A1C Reviewed date:04/07/2024 08:30:55 AM Interpretation: Performing Lab: Notes/Report: [facility] , Glycohemoglobin A1C 6.3 4.5-6.2 % ADA RECOMMENDED LIMIT 4.0 - 6.0 ADA THERAPEUTIC TARGET < 7.0 ACTION SUGGESTED > 7.0 Estimated Average Glucose 134 Performing Lab: see note ML - [facility] PREG QUANT HCG Reviewed date:04/06/2024 03:52:49 PM Interpretation: Performing Lab: Notes/Report: [facility] , HCG Quantitative <1 5-50 0.2-1 WEEK 50-500 1-2 WEEKS 100-5,000 2-3 WEEKS 500-10,000 3-4 WEEKS 1,000-50,000 4-5 WEEKS 10,000-100,000 5-6 WEEKS 15,000-200,000 6-8 WEEKS 10,000-100,000 2-3 MONTHS Performing Lab: see note ML - [facility] LB PTT Reviewed date:04/06/2024 03:52:49 PM Interpretation: Performing Lab: Notes/Report: [facility] , Partial Thromboplastin Time 25.6 22.3-36.2 sec Performing Lab: see note ML - [facility] LB TSH Reviewed date:04/06/2024 03:52:49 PM Interpretation: Performing Lab: Notes/Report: [facility] , Thyroid Stimulating Hormone 0.333 0.358-3.740 uIU/mL Performing Lab: see note ML - [facility] LB Prothrombin Time INR Reviewed date:04/06/2024 03:52:49 PM Interpretation: Performing Lab: Notes/Report: [facility] , Prothrombin Time 9.6 9.0-11.6 sec INR <0.93 DESIRED INR: 2.0-3.0 CONDITIONS NOT LISTED BELOW 2.5-3.5 FOR PROSTHETIC HEART VALVE REPLACEMENT 2.5-3.5 RECURRENT THROMBOSIS Performing Lab: see note ML - [facility] US pelvis w/ transvaginal Reviewed date:04/07/2024 08:29:59 AM Interpretation: Performing Lab: Notes/Report: Source Facility: [facility]-[address] [place] [address] [place] [address] Ultrasound Report Signed Patient: JONES PANIAGUA MR#: [id number] : 1980 Acct:[id number] Age/Sex: 43 / F ADM Date: 04/06/24 Loc: LAB Attending Dr: Oly Parnell Ordering Physician: Oly Parnell Date of Service: 04/06/24 Procedure(s): US pelvis w/ transvaginal Accession Number(s): [id number] cc: Oly Parnell; GAY ENCISO [place] [address] Patient Name: JONES PANIAGUA MRN: [facility]:[id number] date: 1980 Sex: F Assigned Patient Location: LAB Current Patient Location: Accession/Order Number: [id number] Exam Date: 04/06/2024 15:45 Report Date: 04/07/2024 [...] Signed By: 04/07/24 0451 DD/ 0448 TD/TT: Storm Chaser: C. Difficile PCR Reviewed date:04/11/2024 04:22:41 PM Interpretation: Performing Lab: Notes/Report: [facility] , C. Difficile PCR NEGATIVE Performing Lab: see note ML - [facility] LB VC SEGMENTAL PRESSURES Reviewed date:04/27/2024 10:02:21 AM Interpretation: Performing Lab: Notes/Report: Source Facility: [facility]-[address] [place] [address] Vein Report Signed Patient: JONES PANIAGUA MR#: [id number] : 1980 Acct:[id number] Age/Sex: 43 / F ADM Date: 04/26/24 Loc: VC Attending Dr: Judy Arciniega M.D. Ordering Physician: Judy Arciniega M.D. Date of Service: 04/26/24 Procedure(s): VC SEGMENTAL PRESSURES Accession Number(s): [id number] cc: GAY ENCISO ; Judy Arciniega M.D. [place] [address] Patient Name: JONES PANIAGUA MRN: [id number] date: 1980 Sex: F Assigned Patient Location: Current Patient Location: VC Accession/Order Number: [id number] Exam Date: 04/26/2024 10:45 Report Date: 04/26/2024 12:29 At the request of: JUDY ARCINIEGA Procedure: VC SEGMENTAL PRESSURES EXAM: VC SEGMENTAL PRESSURES HISTORY: I73.9 COMPARISON: None. FINDINGS: Segmental pressures presented as follows (right, left) in mmHg. Brachial: 102, 109 Upper thigh: 175, 183 Lower thigh: 166, 177 Calf: 140, 143 DPA: 123, 148 TIN POT OPERATOR: 139, 155 1st Toe: 141, 143 SAMUEL: [...] Signed By: 04/26/24 1231 DD/ 1229 TD/TT: Storm Chaser: IGP,Aptima HPV,Age Gdln Reviewed date:06/12/2024 03:56:26 PM Interpretation: Performing Lab: Notes/Report: BRUSH-SPATULA CERVIX ENDOCERVIX [facility] , Age Gdln ACOG Testing Note . TESTS RESULT FLAG UNITS REF RANGE LAB Clinician Provided Cytology Information Source.............Cervi x;Endocervix No. of containers..01 ThinPrep Vial Age Algo ACOG Vicky... FLAG LEGEND: L-Low Normal,H-High Normal,LL-Alert Low,HH-Alert High <-Panic Low,>-Panic High,A-Abnormal,AA-Criti flakito Abnormal Performed at: 01 =G [facility] [address] Aparna Solorzano MD, IGP, Aptima HPV, rfx 16/18,45 Note . TESTS RESULT FLAG UNITS REF RANGE LAB DIAGNOSIS: 02 NEGATIVE FOR INTRAEPITHELIAL LESION OR MALIGNANCY. Specimen adequacy: 02 Satisfactory for evaluation. Endocervical and/or squamous metaplastic cells (endocervical component) are present. Performed by: 02 Kenzie Kam, Oral Surgery Physician (ASCP) . 02 Note: Note 02 The [...] Low,>-Panic High,A-Abnormal,AA-Criti flakito Abnormal Performed at: [address] [address] Aparna Solorzano MD, HPV Aptima Negative Negative This nucleic acid amplification test detects fourteen high- risk HPV types (16,18,31,33,35,39,45,51 ,52,56,58,59,66,68) without differentiation. Performed at: = - [facility] [id number] School Speech Therapist: Aparna Solorzano MD, Phone: [phone] Performed at: - [address] [id number] School Speech Therapist: Aparna Solorzano MD, Phone: [phone] Performing Lab: see note - [facility] LB MM tomosynthesis diagnostic BI Reviewed date:07/14/2024 03:37:52 PM Interpretation: Performing Lab: Notes/Report: Source Facility: [facility]-[address] [place] [address] The [place] [id number] Mammography Report Signed Patient: JONES PANIAGUA MR#: [id number] : 1980 Acct:[id number] Age/Sex: 43 / F ADM Date: 06/14/24 Loc: MAMMO Attending Dr: Oly Parnell Ordering Physician: Oly Parnell Results: Date of Service: 06/14/24 Follow Up: Procedure(s): MM tomosynthesis diagnostic LT Accession Number(s): [id number] cc: Oly Parnell; GAY ENCISO Patient Name: JONES PANIAGUA MR#: [id number] : 1980 Exam Date: 06/14/2024 Ordering Doctor: [...] cancer at age 56. LOCATION: [facility] BREAST COMPOSITION: There are scattered areas [...] Yusuf M.D. Signed By: 06/14/24 1615 DD/ 13 TD/TT: Storm Chaser: US breast LT limited Reviewed date:07/14/2024 03:37:19 PM Interpretation: Performing Lab: Notes/Report: Source Facility: [place] [address] Ultrasound Report Signed Patient: JONES PANIAGUA MR#: [id number] : 1980 Acct:[id number] Age/Sex: 43 / F ADM Date: 06/14/24 Loc: MAMMO Attending Dr: Oly Parnell Ordering Physician: Oly Parnell Date of Service: 06/14/24 Procedure(s): US breast LT limited Accession Number(s): [id number] cc: Oly Parnell; GAY ENCISO Patient Name: JONES PANIAGUA MR#: [id number] : 1980 Exam Date: 06/14/2024 Ordering Doctor: [...] Signed By: 06/14/24 1505 DD/ 1504 TD/TT: Storm Chaser: CBC AUTO DIFF Reviewed date:08/08/2024 08:30:17 AM Interpretation: Performing Lab: Notes/Report: [facility] , White Blood Count 12.0 4.0-11.0 [...] Performing Lab: see note ML - The [facility] FREE T3 Reviewed date:08/08/2024 02:48:03 PM Interpretation: Performing Lab: Notes/Report: [facility] , Free T3 2.89 2.18-3.98 pg/mL Performing Lab: see note - [facility] LB INSULIN Reviewed date:08/15/2024 01:02:11 PM Interpretation: Performing Lab: Notes/Report: [facility] Insulin 24.1 2.6-24.9 uIU/mL Performed at: [address] [id number] School Speech Therapist: Doyle Mendenhall PhD, Phone: [phone] Performing Lab: see note [facility] IRON Reviewed date:08/08/2024 02:48:03 PM Interpretation: Performing Lab: Notes/Report: [facility] , Iron 135.0 50.0-170.0 ug/dL Performing Lab: see note - [facility] LIPID PROFILE Reviewed date:08/08/2024 02:48:03 PM Interpretation: Performing Lab: Notes/Report: [facility] , Triglycerides 249 <=150 mg/dL Cholesterol [...] >11.0 HIGH RISK Performing Lab: see note - [facility] LB PROF 14(COMP METB) Reviewed date:08/08/2024 02:48:03 PM Interpretation: Performing Lab: Notes/Report: [facility] , Sodium 141 136-145 mmol/L Potassium [...] 0.9 Performing Lab: see note ML - [facility] LB T4 Reviewed date:08/08/2024 02:48:03 PM Interpretation: Performing Lab: Notes/Report: [facility] , T4 Thyroxine 10.40 4.80-13.90 ug/dL Performing Lab: see note - [facility] LB TSH Reviewed date:08/08/2024 02:48:03 PM Interpretation: Performing Lab: Notes/Report: [facility] , Thyroid Stimulating Hormone 0.623 0.358-3.740 uIU/mL Performing Lab: see note ML - [facility] LB Vitamin B12 Reviewed date:08/15/2024 01:02:11 PM Interpretation: Performing Lab: Notes/Report: [facility] , Vitamin B12 822 987-1782 pg/mL Performed at: [facility] [address] [id number] School Speech Therapist: Doyle Mendenhall PhD, Phone: [phone] Performing Lab: see note - [facility] LB US THYROID Reviewed date:08/27/2024 09:41:57 PM Interpretation: Performing Lab: Notes/Report: Source Facility: [facility]-[address] [place] [address] [place] [address] Ultrasound Report Signed Patient: JONES PANIAGUA MR#: [id number] : 1980 Acct:[id number] Age/Sex: 43 / F ADM Date: 08/24/24 Loc: US Attending Dr: Mary Grace Barfield M.D. Ordering Physician: Mary Grace Barfield M.D. Date of Service: 08/24/24 Procedure(s): US thyroid Accession Number(s): [id number] cc: GAY ENCISO ; Mary Grace Barfield M.D. [place] [id number] Patient Name: JONES PANIAGUA MRN: [id number] date: 1980 Sex: F Assigned Patient Location: US Current Patient Location: US Accession/Order Number: [id number] Exam Date: 08/24/2024 09:09 Report Date: 08/24/2024 [...] this was thought to be cystic. The powerhouse mechanic apprentice today considered it solid and it was given TI-RADS 4 classification. No internal color flow is shown. Size has not significantly changed when measuring in a comparable manner. No other nodularity is seen. US/US thyroid IMPRESSION: SIMILAR SMALL LEFT THYROID NODULE. FOLLOW-UP IN ONE YEAR IS SUGGESTED. Impression dictated by: Simin Nelson M.D.08/24/2024 9:22 AM Dictation Location: [place] [address] Electronically authenticated by: [id number] Y Date: 08/24/2024 09:22 Dictated By: Simin Nelson M.D. Signed By: 08/24/24923 DD/ 1 TD/TT: Storm Chaser: E coli Shiga Toxin EIA Reviewed date:10/17/2024 09:27:10 AM Interpretation: Performing Lab: Notes/Report: [facility] , E coli Shiga Toxin EIA See Below For Report E coli Shiga Toxin EIA Negative E coli Shiga Toxin EIA Performed at: [facility] E coli Shiga Toxin EIA Negative E coli Shiga Toxin EIA [address] [place], [place] [id number] E coli Shiga Toxin EIA Negative E coli Shiga Toxin EIA School Speech Therapist: Doyle Mendenhall PhD, Phone: [phone] E coli Shiga Toxin EIA Negative Performing Lab: see note - [facility] LB SEE REPORT - Statistical Analyst Id information not found for OBX-specific type proof reproducer legend Salmonella/Shigella Screen Reviewed date:10/17/2024 09:27:10 AM Interpretation: Performing Lab: Notes/Report: [facility] , Salmonella/Shigella Screen See Below For Report Salmonella/Shigella Screen Salmonella/Shigella Screen No Salmonella or Shigella recovered. Salmonella/Shigella Screen Performing Lab: see note [facility] Campylobacter Culture Reviewed date:10/17/2024 09:27:10 AM Interpretation: Performing Lab: Notes/Report: [facility] , Campylobacter Culture See Below For Report Campylobacter Culture No Campylobacter species isolated. Performing Lab: see note [facility] LB C. Difficile PCR Reviewed date:10/25/2024 10:18:31 AM Interpretation: Performing Lab: Notes/Report: [facility] , C. Difficile PCR NEGATIVE Performing Lab: see note - [facility] LB E coli Shiga Toxin EIA Reviewed date:10/26/2024 03:06:58 PM Interpretation: Performing Lab: Notes/Report: [facility] , E coli Shiga Toxin EIA See Below For Report E coli Shiga Toxin EIA E coli Shiga Toxin EIA Negative E coli Shiga Toxin EIA E coli Shiga Toxin EIA Performed at: [facility] E coli Shiga Toxin EIA E coli Shiga Toxin EIA [address] [place], [place] [id number] E coli Shiga Toxin EIA E coli Shiga Toxin EIA School Speech Therapist: Doyle Mendenhall PhD, Phone: [phone] E coli Shiga Toxin EIA Performing Lab: see note [facility] LB SEE REPORT - Statistical Analyst Id information not found for OBX-specific type proof reproducer legend Salmonella/Shigella Screen Reviewed date:10/30/2024 12:57:59 PM Interpretation: Performing Lab: Notes/Report: [facility] , Salmonella/Shigella Screen See Below For Report Salmonella/Shigella Screen Salmonella/Shigella Screen No Salmonella or Shigella recovered. Salmonella/Shigella Screen Performing Lab: see note - [facility] LB Campylobacter Culture Reviewed date:10/30/2024 12:57:59 PM Interpretation: Performing Lab: Notes/Report: [facility] , Campylobacter Culture See Below For Report Campylobacter Culture No Campylobacter species isolated. Performing Lab: see note LC - [facility] LB E coli Shiga Toxin EIA Reviewed date:10/30/2024 12:57:59 PM Interpretation: Performing Lab: Notes/Report: [facility] , E coli Shiga Toxin EIA See Below For Report E coli Shiga Toxin EIA E coli Shiga Toxin EIA Negative E coli Shiga Toxin EIA E coli Shiga Toxin EIA Performed at: [facility] E coli Shiga Toxin EIA E coli Shiga Toxin EIA [address] [place] [id number] E coli Shiga Toxin EIA E coli Shiga Toxin EIA School Speech Therapist: Doyle Mendenhall PhD, Phone: [phone] E coli Shiga Toxin EIA Performing Lab: see note LC - [facility] LB SEE REPORT - Statistical Analyst Id information not found for OBX-specific type proof reproducer legend US abdomen complete Reviewed date:01/01/2025 12:58:33 PM Interpretation: Performing Lab: Notes/Report: Source Facility: [place] [address] Ultrasound Report Signed Patient: JONES PANIAGUA MR#: [id number] : 1980 Acct:[id number] Age/Sex: 44 / F ADM Date: 12/30/24 Loc: US Attending Dr: Ingrid Portillo [employer]PATCH SUPERVISOR Ordering Physician: Ingrid Portillo NP Date of Service: 12/30/24 Procedure(s): US abdomen complete Accession Number(s): [id number] cc: GAY ENCISO ; Ingrid Portillo NP [place] [id number] Patient Name: JONES PANIAGUA MRN: [id number]:[id number] date: 1980 Sex: F Assigned Patient Location: Current Patient Location: US Accession/Order Number: [id number] Exam Date: 12/30/2024 15:15 Report Date: 12/30/2024 [...] Jr., D.O. 12/30/2024 3:18 PM Dictation Location: [place] [address] Electronically authenticated by: [id number] Y Date: 12/30/2024 15:18 Dictated By: Karel Ricci M.D. Signed By: 12/30/24 1520 DD/ 1518 TD/TT: Storm Chaser: PROF Schmid(COMP METB) Reviewed date:02/26/2025 09:22:15 AM Interpretation: Performing Lab: Notes/Report: [facility] , Sodium 137 136-145 mmol/L Potassium 3.8 3.5-5.1 mmol/L Chloride 102 98-107 mmol/L Carbon Dioxide 22.7 21.0-32.0 mmol/L Anion Gap 16.1 Glucose 219 74-106 mg/dL Blood Urea Nitrogen 15.0 7.0-18.0 mg/dL Creatinine 0.71 0.55-1.02 mg/dL Estimated GFR ( Cindi >60 >=60 mL/min/1.73m 2 Estimated GFR (Non- Coretta >60 >=60 mL/min/1.73m 2 BUN Creatinine Ratio 21.1 Calcium 8.8 8.5-10.1 mg/dL Bilirubin Total 0.3 0.2-1.0 mg/dL Aspartate Amino Transferase 27 15-37 U/L Alanine Aminotransferase 73 14-59 U/L Alkaline Phosphatase 80 46-116 U/L Total Protein 7.6 6.4-8.2 g/dL Albumin Level 3.1 3.4-5.0 g/dL Globulin 4.5 Albumin Globulin Ratio 0.7 Performing Lab: see note ML - [facility] LB CBC AUTO DIFF Reviewed date:02/26/2025 09:22:15 AM Interpretation: Performing Lab: Notes/Report: [facility] , White Blood Count 10.8 4.0-11.0 10 3/uL Red Blood Count 4.39 4.20-5.40 10 6/uL Hemoglobin 14.3 12.0-16.0 g/dL Hematocrit 42.3 36.0-48.0 % Mean Corpuscular Volume 96.4 81.0-99.0 fL Mean Corpuscular Hemoglobin 32.6 26.7-34.0 pg Mean Corpuscular HGB Conc 33.8 29.9-35.2 g/dL Red Cell Distribution Width 14.0 11.0-15.0 % Platelet Count 264 150-450 10 3/uL Mean Platelet Volume 10.4 9.5-13.5 fL Neutrophils Percent Auto 79.7 43.0-75.0 % Lymphocytes Percent Auto 12.5 20.5-60.0 % Monocytes Percent Auto 5.2 1.7-12.0 % Eosinophils Percent Auto 0.6 0.9-7.0 % Basophils Percent Auto 0.6 0.2-2.0 % Immature Granulocytes Pct Auto 1.4 0.0-0.5 % Neutrophils Absolute Auto 8.6 1.4-6.5 10 3/uL Lymphocytes Absolute Auto 1.4 1.2-3.8 10 3/uL Monocytes Absolute Auto 0.6 0.3-0.8 10 3/uL Eosinophils Absolute Auto 0.1 0.0-0.7 10 3/uL Basophils Absolute Auto 0.1 0.0-0.1 10 3/uL Immature Granulocytes Abs Auto 0.15 0.00-0.03 10 3/uL Performing Lab: see note ML - [facility] LB LACTATE or LACTIC ACID Reviewed date:02/26/2025 09:22:15 AM Interpretation: Performing Lab: Notes/Report: [facility] , Lactate/Lactic Acid 3.3 0.4-2.0 mmol/L RESULTS CALLED TO LISA Painter RN @BY Cresencio Odom MLT at 0037 Performing Lab: see note ML - The [facility] LB PROF CHEM 8 (BAS METB) Reviewed date:02/26/2025 09:22:15 AM Interpretation: Performing Lab: Notes/Report: [facility] , Sodium 138 136-145 mmol/L Potassium 4.2 3.5-5.1 mmol/L Chloride 101 98-107 mmol/L Carbon Dioxide 21.1 21.0-32.0 mmol/L Anion Gap 20.1 Glucose 260 74-106 mg/dL Blood Urea Nitrogen 17.0 7.0-18.0 mg/dL Creatinine 0.81 0.55-1.02 mg/dL Estimated GFR ( Cindi >60 >=60 mL/min/1.73m 2 Estimated GFR (Non- Coretta >60 >=60 mL/min/1.73m 2 BUN Creatinine Ratio 21.0 Calcium 9.3 8.5-10.1 mg/dL Performing Lab: see note - [facility] HCG Qualitative* Reviewed date:02/26/2025 09:22:15 AM Interpretation: Performing Lab: Notes/Report: [facility] , HCG Qualitative NEGATIVE NEGATIVE Performing Lab: see note - [facility] VITAMIN D 25 [place] Reviewed date:08/08/2024 02:48:03 PM Interpretation: Performing Lab: Notes/Report: [facility] , Vitamin D 27.7 <20 ng/mL Vit D deficient 20-<30 ng/mL Vit D insufficient 30-100 ng/mL Vit D sufficient >100 ng/mL Potential Toxicity Performing Lab: see note - [facility] GLYCOHEMOGLOBIN A1C Reviewed date:08/08/2024 02:48:03 PM Interpretation: Performing Lab: Notes/Report: [facility] , Glycohemoglobin A1C 6.7 4.5-6.2 % ADA RECOMMENDED LIMIT 4.0 - 6.0 ADA THERAPEUTIC TARGET < 7.0 ACTION SUGGESTED > 7.0 Estimated Average Glucose 146 Performing Lab: see note - [facility] CBC AUTO DIFF Reviewed date:05/15/2024 01:58:59 PM Interpretation: Performing Lab: Notes/Report: [facility] , White Blood Count 12.6 4.0-11.0 [...] 3/uL Performing Lab: see note ML - [facility] US venous doppler LE BI Reviewed date:04/17/2024 03:30:15 PM Interpretation: Performing Lab: Notes/Report: Source Facility: [place] [address] Ultrasound Report Signed Patient: JONES PANIAGUA MR#: [id number] : 1980 Acct:[id number] Age/Sex: 43 / F ADM Date: 04/17/24 Loc: RAD Attending Dr: Enma WARREN Ordering Physician: Enma Shea Date of Service: 04/17/24 Procedure(s): US venous doppler LE LT Accession Number(s): [id number] cc: GAY ENCISO ; Enma Shea [place] [address] Patient Name: JONES PANIAGUA MRN: [facility]:[id number] date: 1980 Sex: F Assigned Patient Location: RAD Current Patient Location: RAD Accession/Order Number: [id number] Exam Date: 04/17/2024 08:15 Report Date: 04/17/2024 14:56 At the request of: ENMA SMITHSUZIE Procedure: US venous doppler LE LT EXAM: [...] in the calf. Electronically authenticated by: DARIN OVRA Date: 04/17/2024 14:56 Dictated By: Darin Vora M.D. Signed By: 04/17/24 1458 DD/ 145 TD/TT: Storm Chaser: LIZETTE tomosynthesis diagnostic BI Reviewed date:04/07/2024 08:58:17 AM Interpretation: Performing Lab: Notes/Report: Source Facility: [facility]-[address] [place] [address] [place] [address] Mammography Report Signed Patient: JONES PANIAGUA MR#: [id number] : 1980 Acct:[id number] Age/Sex: 43 / F ADM Date: 04/06/24 Loc: US Attending Dr: Luan Valdivia D.O. Ordering Physician: Skip,Luan D.O. Results: Date of Service: 04/06/24 Follow Up: Procedure(s): MM tomosynthesis diagnostic BI Accession Number(s): [id number] cc: GAY ENCISO ; Luan Valdivia D.O. Patient Name: JONES PANIAGUA MR#: [id number] : 1980 Exam Date: 04/06/2024 Ordering Doctor: [...] cancer at age 56. LOCATION: [facility] BREAST COMPOSITION: There are scattered areas [...] M.D. Signed By: 04/07/24 0841 DD/ TD/TT: Storm Chaser: US breast BI limited Reviewed date:04/07/2024 08:58:17 AM Interpretation: Performing Lab: Notes/Report: Source Facility: [place] [address] [place] [address] Ultrasound Report Signed Patient: JONES PANIAGUA MR#: [id number] : 1980 Acct:[id number] Age/Sex: 43 / F ADM Date: 04/06/24 Loc: US Attending Dr: Luan Valdivia D.O. Ordering Physician: Luan Valdivia D.O. Date of Service: 04/06/24 Procedure(s): US breast BI limited Accession Number(s): [id number] cc: GAY ENCISO ; Luan Valdivia D.O. Patient Name: JONES PANIAGUA MR#: [id number] : 1980 Exam Date: 04/06/2024 Ordering Doctor: [...] cancer at age 56. LOCATION: [facility] BREAST COMPOSITION: There are scattered areas [...] Dictated By: Vito Yusuf M.D. Signed By: 04/07/24840 DD/ 9 TD/TT: Storm Chaser: Celiac Disease Comprehensive Reviewed date:04/10/2024 09:26:28 AM [...] Serum 169 87-352 mg/dL Performed at: - [facility] [address] [id number] School Speech Therapist: Doyle Mendenhall PhD, Phone: [phone] Performing Lab: see note - [facility] LB Reason For Referral No Information Medications Medication SIG (Take, Route, Frequency, Duration) Notes Start Date End Date Status Pregabalin 75 MG 3 capsule Orally onc e daily- as needed; Duration: 30 days Active Triamcinolone Acetonide 0.025 % APPLY TO AFFECTED AREA TWICE DAILY NEEDED FOR 30 DAYS External; Duration: 30 Days Active Albuterol Sulfate HFA 108 (90 Base) MCG/ACT 2 puff as needed Inhalation every 4 hrs; Duration: 30 days 08/05/2023 Active amLODIPine Besylate 5 MG 1 tablet Orally Once a day; Duration: 30 days 02/03/2024 Active Vitamin D (Ergocalciferol) 1.25 MG (11358 UT) 1 capsule Orally once weekly; Duration: 28 days Active Nystatin 836884 UNIT/ML 4 mL Mouth/Throa t Four times a day; Duration: 7 days Active Pantoprazole Sodium 40 MG 1 tablet 1/2 to 1 hour before morning meal Orally Once a day; Duration: 90 days 07/27/2024 Active predniSONE 10 MG 1 tablet Orally once daily; Duration: 30 days Active Cyanocobalamin 1000 MCG/ML 1 mL Injection monthly 12/28/2023 Activ e Benlysta 200 MG/ML 200mg Subcutaneous o nce weekly Active Voltaren 1 % as directed External ly as needed 02/01/2024 Active Clobetasol Propionate 0.05 % APPLY TO [...] days call for next dose 02/26/2025 Active Fluocinonide 0.05 % 1 application Externally Once a day- as needed; Duration: 30 days Active Folic Acid Active HYDROcodone-Acetaminophe n 7.5-325 MG 1 tablet as needed Orally every 6 hrs 01/08/2025 Active Hydroxychloroquine Sulfate 400 MG 1 capsule Orally once daily; Duration: 30 days Active Cymbalta 20 MG 1 capsule Orally Onc e a day; Duration: 30 days 02/01/2024 Active Dificid 200 MG 1 tablet Orally Twic e a day; Duration: 10 day(s) 08/11/2024 Active Imuran 50 MG 3 tablets Orally onc e daily Active KlonoPIN 0.5 MG 1 tablet Orally Once a day prn; Duration: 30 days F41.9 12/07/2024 Active Methocarbamol 750 MG 1 tablet Orally Q H S prn; Duration: 10 days 07/27/2023 Active Metoprolol Tartrate 50 MG TAKE 2 TABLETS BY MOUTH TWICE A DAY WITH FOOD; Duration: 90 days Active Social History Tobacco Use: Social History [...] Status Risk Notes Problem Chronic fatigue syndrome (12983830) Chronic fatigue (780.79) Active confirmed Problem Non-toxic single thyroid nodule (279863342) Nontoxic single thyroid nodule (E04.1) Active confirmed Problem Sleep apnea (25209471) 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, 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 (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) Active confirmed Problem Generalized enlarged lymph nodes (346696057) Generalized enlarged lymph nodes (R59.1) Active confirmed Problem Hypertension (86994851) Hyperten vickie (I10) Active confirmed Problem Gastroesophageal ref lux disease (907856965) GERD (gastroesophag eal reflux disease) (K21.9) Active confirmed Problem Anxiety (69058637) Anxiety (F41.9) Active confirmed Problem Type 2 diabetes mellitus (09852285) Type 2 diabetes mellitus (E11.9) Active confirmed Problem Leukocytosis (139812075) Elevated WBC count (D72.829) Active confirmed Problem Thyroid nodule (717022934) Thyroid nodule (E04.1) Active confirmed Problem Fatty liver (219859794) Fatty li daniel (K76.0) Active confirmed Problem Lupus (705197958) Lupus (M32.9) Active confirme d Problem Abdominal pressure (135243587) Abdominal pressure (R10.9) Active confirmed Problem Raynaud's disease (414826925) Raynauds phenomenon (I73.00) Active confirmed Problem Pure hypercholesterolemia (512722471) Pure hypercholester olemia, unspecified (E78.00) Active confirmed Problem Prediabetes (325337717) Pre-diab etes (R73.03) Active confirmed Vital Signs Temperature 98.2 degrees Fahrenheit 05/15/2024 Blood pressure diastolic 68 mm Hg 08/11/2024 Height 67 in 02/26/2025 Blood pressure systolic 120 mm Hg 08/11/2024 Weight 290 lbs 08/11/2024 BMI 45.42 kg/m2 08/11/2024 Encounters Encounter Location Date Provider Diagnosis [facility] [address] [place] [address] 05/15/2024 Gay Enciso Enlarged lymph nodes R59.9 and C. difficile diarrhea A04.72 [facility] [address] [place] [address] 07/27/2024 Gay Enciso GERD (gastroesophage al reflux disease) K21.[address] [facility] [address] [place] [address] 08/11/2024 Víctor Hoy Generalized enlarged lymph nodes R59.1 and Elevated WBC count D72.829 [facility] [address] [facility] [place] [address] 02/28/[address] [facility] [address] [facility] [place] [address] 03/06/2024 Gay Enciso Diarrhea R19.7 [facility] [address] [place] [address] 04/11/[address] [facility] [address] [facility] [place] [address] 04/17/[address] [facility] [address] [facility] [place] [address] 04/17/2024 Gay Enciso [facility] [address] [place] [facility] [address] 04/28/2024 Gay Enciso Hypertension I10 [facility] [address] [place] [facility] [place] [address] 04/28/2024 Gay Enciso Anxiety F41.9 [facility] [address] [facility] [place] [address] 05/01/2024 Gay Enciso Hypertension I10 and Oral candidiasis B37.0 [facility] [address] [facility] [place] [address] 05/15/[address] [facility] [address] [facility] [place] [address] 06/16/2024 Gay Enciso Hypertension I10 [facility] [address] [facility] [place] [address] 07/04/[address] [facility] [address] [facility] [place] [place] [address] 07/27/[address] [facility] [address] [facility] [place] [place] [address] 08/16/2024 Gay Enciso Pre-diabetes R73.03 [facility] [address] [facility] [place] [place] [address] 08/24/[address] [facility] [address] [facility] [place] [place] [address] 09/01/2024 Gay Enciso Anxiety F41.9 [facility] [address] [facility] [place] [place] [address] 10/06/2024 Gay Enciso Anxiety F41.[address] [facility] [address] [facility] [place] [place] [address] 10/13/[address] [facility] [address] [facility] [place] [place] [address] 10/13/[address] [facility] [address] [facility] [place] [place] [address] 10/25/[address] [facility] [address] [facility] [place] [address] 10/26/2024 Gay Enciso [facility] [address] [facility] [place] [address] 10/30/2024 Gay Enciso Thrush B37.0 [facility] [address] [facility] [place] [place] [address] 11/03/[address] [facility] [address] [facility] [place] [address] 11/06/2024 Víctor Klein Thrush B37.0 and Anxiety F41.[address] [address] 12/05/2024 Gay Enciso Anxiety F41.[address] [address] 12/11/2024 Gay Enciso [address] [address] 02/09/2025 Gay Enciso Jaw pain R68.[address] [address] 02/23/2025 Gay Enciso Pre-diabetes R73.03 and 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-term current use of medication Z79.[address] [address] 10/23/2024 Gay Enciso Diarrhea R19.7 ; [place] D (gastroesophageal reflux disease) K21.9 and Generalized enlarged lymph nodes R59.[address] [place] [address] 01/08/2025 Gay Enciso Rib pain on right si de R07.81 ; Jaw pain R68.84 and Generalized enlarged lymph nodes R59.[address] [address] 02/26/2025 Gay Enciso Elevated lactic acid level R79.89 and Type 2 diabetes mellitus E11.[address] [address] 04/05/2024 Gay Enciso Oral candidiasis B37 .[address] [address] 04/14/2024 Gay Enciso Lupus M32.[address] [address] 07/04/2024 Gay Enciso Pre-diabetes R73.03 and Thrush B37.0 Assessments Encounter Date Diagnosis (ICD Code) Assessment [...] - D72.829) 10/23/2024 Diarrhea (ICD-10 - R19.7) 02/26/2025 Elevated lactic acid level (ICD-10 - R79.89) 02/26/2025 Type 2 diabetes mellitus (ICD-10 - E11.9) 03/06/2024 Diarrhea (ICD-10 - R19.7) 04/28/2024 Hypertension [...] US Thyroid 07/27/2023 C DIFFICILE BY PCR 02/26/2025 C DIFFICILE BY PCR 03/06/2024 PFT Complete 08/17/2023 Insulin Level 07/27/2024 COMPREHENSIVE METABOLIC PANEL 02/26/2025 C DIFF TOX PCR STOOL 10/23/2024 C DIFF TOX PCR STOOL 07/20/2023 C DIFF TOX PCR STOOL 10/06/2024 C DIFF TOX PCR STOOL 09/08/2023 C DIFF TOX PCR STOOL 12/20/2023 CMP - Comprehensive Metabolic Panel 10/0 07/2024 C. DIFF PCR 08/10/2023 C. DIFF PCR 07/27/2023 CULTURE URINE 06/25/2023 LACTATE or LACTIC ACID 02/26/2025 LIPID PROFILE 02/10/2023 STOOL CULTURE 07/27/2023 STOOL CULTURE 09/08/2023 STOOL CULTURE 10/06/2024 VITAMIN B12 07/27/[address] WO CON 08/20/[address] HEAD_NECK 07/27/2023 US KALYN DOP LEG AMRK 02/10/2024 XR CHEST 2 V 08/17/2023 THYROID PANEL (T4/TSH/FREE T3) CT angio chest 12/08/2023 CMP (COMP MET ONEIL) w/eGFR CKD-EPI 2024 Insurance Providers Payer Name Payer Address Payer Phone Subscriber Number Group Number Insured Name Patient Relationship to Insured Coverage Start Date Coverage End Date [employer] [place] [employer] [address] [place] [address] [id number] Jones Paniagua Self - patient is the insured Medical (General) History Medical History History ICD Code Chronic fatigue 780.79 Anxiety F41.9 Cervical lymphadenopathy R59.0 GERD (gastroesophageal reflux disease) K 21.9 Hypercholesterolemia E78.00 Hyperlipidemia E78.5 Lupus M32.9 Tachycardia R00.0 Prediabetes R73.09 Hypertension I10 Surgical History Surgery Date(Month/Year) lymph node biopsy 2020
--- OUTSIDE RECORDS SUMMARY | 2025-02-26 15:23 | XMS_ITS | Encounter Summary ---
Author Organization [facility] Address [address] [place] [address] Care Team Providers Care Leasing Representative Name Role Phone Manuel Klein MD Unavailable [phone] Manuel Klein MD Primary Care Provider [phone] Manuel Klein MD Unavailable [phone] Source Comments In the event this information is protected by the Federal Confidentiality of Alcohol and Drug AbusePatient Records regulations: The Federal rules restrict any use of the information to criminally investigate or prosecute any alcohol or drug abuse patient.[facility] Reason for Visit * Reason Comments Refill Request Encounter Details Date Type Department Care Team (Late st Contact Info) Description 04/26/2024 Refill Rheumatology [address] [place], [place] [phone] Sandra Park MD [address] [place] [address] Refill Request Social History Tobacco [...] lower risk 4 09/24/2022 Data from: https://[email or web address].medicine.[email or web address]/. Last address used for calculation [address] 09/24/2022 Comments No Sex and Gender [...] PM EDT [facility] Hematology/Oncology [address] [facility] [place] [address] BENLYSTA - 03/21/2025 9:00 AM EDT Office Visit [facility] [address] [place] [address] [place] [address] 4 week follow up IVIG - pt to see MASON for this appt per [facility] 03/21/2025 9:20 AM EDT Visit (SP) Office Hematology/Oncology [address] [facility] [place] [address] Jose Cho MD [address] [facility] [place] [address] 4 week follow up IVIG - pt to see MASON for this appt per [facility] 03/21/2025 9:40 AM EDT Infusion Center Hematology/Oncology [address] [facility] [place] [address] Gabbi, Chair 4 [address] [facility] [place] [address] 4 week follow up IVIG - pt to see MASON for this appt per [facility] 04/05/2025 2:00 PM EST Infusion Center Hematology/Oncology [address] [facility] [place] [address] BENLYSTA - 05/03/2025 2:00 PM EST Infusion Center Hematology/Oncology [address] [facility] [place] [address] BENLYSTA - documented as of this encounter Visit Diagnoses Diagnosis Other systemic lupus erythematosus with other organ involvement (HCC) documented in this encounter Care Teams Leasing Representative Relationship Specialty Start Date End Date Manuel Klein MD PCP - General Family Medicine 02/27/22 Manuel Klein MD Referring Family Medicine 02/12/22 Manuel Klein MD [address] [place] [address] Referring Family Medicine 07/06/24 documented as of this encounter
--- OUTSIDE RECORDS SUMMARY | 2025-02-26 15:23 | XMS_ITS | Encounter Summary ---
Author Organization [facility] Address [address] [place] [address] Care Team Providers Care Group Activities Aide Name Role Phone Aime Davidson MD, Lui Nunez Primary Care Provid er Gay De La Torre(Historical) DISTANCE EDUCATION FACULTY LIAISON.POCKET MACHINE OPERATOR Primary Care Provider Unavailable Manuel Klein MD Unavailable [phone] Manuel Klein MD Primary Care Provider [phone] Manuel Klein MD Unavailable [phone] Source Comments In the event this information is protected by the Federal Confidentiality of Alcohol and Drug AbusePatient Records regulations: The Federal rules restrict any use of the information to criminally investigate or prosecute any alcohol or drug abuse patient.[facility] Encounter Details Date Type Department Care Team (Late st Contact Info) Description 12/31/2014 Get Medical Advice Internal Medicine [facility] [place] [address] Lui Salomon Jr., MD [address] [address] Medication Question (Not Renewal) Social [...] Info) Description 03/08/2025 2:00 PM EDT [facility] Hematology/Oncology [address] [place] [address] [place] [address] BENLYSTA - 03/21/2025 9:00 AM EDT Office Visit [facility] [address] [facility] [place] [address] 4 week follow up IVIG - pt to see MASON for this appt per [facility] 03/21/2025 9:20 AM EDT Visit (SP) Office Hematology/Oncology [address] [facility] [place] [address] Jose Cho MD [address] [facility] [place] [address] 4 week follow up IVIG - pt to see MASON for this appt per [facility] 03/21/2025 9:40 AM EDT Infusion Center Hematology/Oncology [address] [facility] [place] [address] Bon Aqua, Chair [address] [facility] [place] [address] 4 week follow up IVIG - pt to see MASON for this appt per [facility] 04/05/2025 2:00 PM EST Infusion Center Hematology/Oncology [address] [facility] [place] [address] BENLYSTA - 05/03/2025 2:00 PM [facility] Infusion Center Hematology/Oncology [address] [place] [address] [place] [address] BENLYSTA - documented as of this encounter Visit Diagnoses Not on filedocumented in this encounter Care Teams Group Activities Aide Relationship Specialty Start Date End Date Lui Salomon Jr., MD PCP - General Internal Medicine 05/31/14 07/08/20 Gay De La Torre(Historical), DISTANCE EDUCATION FACULTY LIAISON.POCKET MACHINE OPERATOR PCP - General Family Medicine 10/24/21 02/26/22 Manuel Klein MD PCP - General Family Medicine 02/27/22 Manuel Klein MD Referring Family Medicine 02/12/22 Manuel Klein MD [address] [place] [id number] Referring Family Medicine 07/06/24 documented as of this encounter
--- OUTSIDE RECORDS SUMMARY | 2025-02-26 15:23 | XMS_ITS | Encounter Summary ---
Author Organization [facility] Address [address] [facility] [place] [address] Care Team Providers Care Document Photographer Name Role Phone House, Charles Culver MD Primary Care Provider [phone] Gay De La Torre MD Unavailable [phone] Encounter Details Date Type Department Care Team (Late Contact Info) Description 06/20/2024 Orders Only [facility] [address] [place] [address] Sabi Barker LPN [address] [place] [id number] Social History Tobacco Use Types Packs/Day Years [...] AM EDT Consult [facility] [address] [id number] Terence Blum MD 703 [facility] [address] [place] [address] 03/19/2025 10:20 AM EDT Office Visit [facility] [address] [place] [address] Mary Grace Mejias MD [address] [facility] [address] [place] [address] 07/25/2025 11:00 AM EST Office Visit [facility] [address] [place] [address] Cynthia English MD [address] [place] [address] documented as of this [...] on filedocumented in this encounter Care Teams Document Photographer Relationship Specialty Start Date End Date Charles Nicole MD PCP - General Family Medicine 02/09/24 07/17/24 Gay De La Torre MD [facility] [place] [address] Referring Physician Family Medicine 07/18/24 documented as of this encounter
--- OUTSIDE RECORDS SUMMARY | 2025-02-26 15:23 | XMS_ITS | Encounter Summary ---
Author Organization [facility] Address [address] [facility] [place] [address] Care Team Providers Care Act Tutor Name Role Phone House, Charles Culver MD Primary Care Provider Gay De La Torre MD Unavailable [phone] Encounter Details Date Type Department Care Team (Late Contact Info) Description 04/07/2024 Clinisync Result Encounter [facility] External Department Unsolicited Luan Valdivia, DO [address] [facility] [place] [place], [place] [phone] Social History Tobacco Use Types Packs/Day Years [...] AM EDT Consult [facility] [address] [facility] [address] [place] [address] Terence Blum MD 703 [facility] 150 [place] [address] 03/19/2025 10:20 AM EDT Office Visit [facility] [address] [place] [address] Mary Grace Mejias MD [address] [facility] [address] [place] [address] 07/25/2025 11:00 AM EST Office Visit [facility] [address] [place] [address] Cynthia English MD [address] [place] [address] documented as of this encounter Procedures Procedure Name Priority Date/Time Associated Diagnosis Comments MM TOMOSYNTHESIS DIAGNOSTIC BI 04/07/2024 8:40 AM EST documented in this encounter Results * MM TOMOSYNTHESIS DIAGNOSTIC BI (04/07/2024 8:40 AM EST) Anatomical Region Laterality Modality Other 04/07/2024 8:40 AM EST Narrative 04/07/2024 8:41 AM EST [address] [address] Mammography Report Signed Patient: JONES PANIAGUA MR#: [id number] : 1980 Acct:[id number] Age/Sex: 43 / F ADM Date: 04/06/24 Loc: US Attending Dr: Luan Valdivia D.O. Ordering Physician: Luan Valdivia D.O. Results: Date of Service: 04/06/24 Follow Up: Procedure(s): MM tomosynthesis diagnostic BI Accession Number(s): [id number] cc: GAY DE LA TORRE ; Luan Valdivia D.O. Patient Name: JONES PANIAGUA MR#: [id number] : 1980 Exam Date: 04/06/2024 Ordering Doctor: [...] stomach cancer at age 56. LOCATION: [facility] BREAST COMPOSITION: There are scattered [...] Signed By: 04/07/24 0841 DD/ 0840 TD/TT: Enterprise Systems Architect: Procedure Note Radiology, Radiologist, MD - 04/07/2024 [place] [address] Mammography Report Signed Patient: JONES PANIAGUA BMR#: [id number] : 1980Acct:[id number] Age/Sex: 43 / FADM Date: 04/06/24 Loc: US Attending Dr: Luan Valdivia D.O. Ordering Physician: Luan Valdivia D.O.Results: Date of Service: 04/06/24Follow Up: Procedure(s): MM tomosynthesis diagnostic BI Accession Number(s): [id number] cc: GAY DE LA TORRE ; Luan Valdivia D.O. Patient Name: JONES PANIAGUA MR#: [id number] : 1980 Exam Date: 04/06/2024 Ordering Doctor: DR Luan Valdivia . RADIOLOGY REPORT PROCEDURE: MM TOMOSYNTHESIS DIAGNOSTIC BI, 04/06/2024, 15:20 US BREAST BI LIMITED, 04/06/2024, 15:37 COMPARISON: MM TOMOSYNTHESIS SCREENING BI, 09/23/2023. MG MAMM [id number] MARK CAD, 09/01/2022. MG MAMM SCREEN 3D [...] stomach cancer at age 56. LOCATION: [facility] BREAST COMPOSITION: There are scattered [...] Vito Yusuf M.D. Signed By:04/07/2441 DD/ TD/TT: Enterprise Systems Architect: Luan Valdivia DO [facility] Final Result documented in this encounter Visit Diagnoses Not on filedocumented in this encounter Care Teams Act Tutor Relationship Specialty Start Date End Date Charles Nicole MD PCP - General Family Medicine 02/09/24 07/17/24 Gay De La Torre MD [address] [place], [place] [address] Referring Physician Family Medicine 07/18/24 documented as of this encounter
--- OUTSIDE RECORDS SUMMARY | 2025-02-26 15:23 | XMS_ITS | Encounter Summary ---
Author Organization [facility] Address [address] [facility] [place] [address] Care Team Providers Care Human Resources Technician Name Role Phone House, Charles Culver MD Primary Care Provider [phone] Gay De La Torre MD Unavailable [phone] Reason for Visit * Reason Comments Med Refill Encounter Details Date Type Department Care Team (Late Contact Info) Description 07/02/2024 Refill [facility] [address] [facility] [address] [place] [address] Mary Grace Mejias MD 112 [facility] 130 [place] [address] LPRD (laryngopharyngeal reflux disease) Social History Tobacco [...] 703 [facility] 150 [place] [address] Terence Blum MD 703 [facility] 150 [place] [address] 03/19/2025 10:20 AM EDT Office Visit [facility] [address] [place] [address] Mary Grace Mejias MD 112 [facility] [address] [place] [address] 07/25/2025 11:00 AM EST Office Visit [facility] [address] [place] [address] Cynthia English MD [address] [place] [address] documented as of this encounter Visit Diagnoses Diagnosis LPRD (laryngopharyngeal reflux disease) Acute laryngitis, without mention of obstruction documented in this encounter Care Teams Human Resources Technician Relationship Specialty Start Date End Date Charles Nicole MD PCP - General Family Medicine 02/09/24 07/17/24 Gay De La Torre MD [address] [place] [address] Referring Physician Family Medicine 07/18/24 documented as of this encounter
--- OUTSIDE RECORDS SUMMARY | 2025-02-26 15:23 | XMS_ITS | Encounter Summary ---
Author Organization [facility] Address [address] [facility] [place] [address] Care Team Providers Care Lotteries Agent Name Role Phone House, Charles Culver MD Primary Care Provider Gay De La Torre MD Unavailable [phone] Encounter Details Date Type Department Care Team (Late Contact Info) Description 04/07/2024 Clinisync Result Encounter [facility] External Department Unsolicited Luan Valdivia, DO [address] [facility] Liliam [place]are [place], [place] [id number] Social History Tobacco Use Types Packs/Day Years [...] AM EDT Consult [facility] [address] [facility] 150 [place] [address] Terence Blum MD 703 [facility] 150 [place] [address] 03/19/2025 10:20 AM EDT Office Visit [facility] [address] [place] [address] Mary Grace Mejias MD [address] [facility] 130 [place] [address] 07/25/2025 11:00 AM EST Office Visit [facility] [address] [place] [address] Cynthia English MD [address] [place] [address] documented as of this encounter Procedures Procedure Name Priority Date/Time Associated Diagnosis Comments US BREAST BI LIMITED 04/07/2024 8:40 AM EST documented in this encounter Results * US BREAST BI LIMITED (04/07/2024 8:40 AM EST) Anatomical Region Laterality Modality Other 04/07/2024 8:40 AM EST Narrative 04/07/2024 8:41 AM EST [address] [address] Ultrasound Report Signed Patient: JONES PANIAGUA MR#: [id number] : 1980 Acct:[id number] Age/Sex: 43 / F ADM Date: 04/06/24 Loc: US Attending Dr: Luan Valdivia D.O. Ordering Physician: Luan Valdivia D.O. Date of Service: 04/06/24 Procedure(s): US breast BI limited Accession Number(s): [id number] cc: GAY DE LA TORRE ; Luan Valdivia D.O. Patient Name: JONES PANIAGUA MR#: [id number] : 1980 Exam Date: 04/06/2024 Ordering Doctor: [...] stomach cancer at age 56. LOCATION: The [facility] BREAST COMPOSITION: There are scattered areas of [...] Signed By: 04/07/24 0841 DD/ 0840 TD/TT: Therapeutic Program Worker: Procedure Note Radiology, Radiologist, MD - 04/07/2024 [place] [address] Ultrasound Report Signed Patient: JONES PANIAGUA BMR#: [id number] : 1980Acct:[id number] Age/Sex: 43 / FADM Date: 04/06/24 Loc: US Attending Dr: Luan Valdivia D.O. Ordering Physician: Luan Valdivia D.O. Date of Service: 04/06/24 Procedure(s): US breast BI limited Accession Number(s): [id number] cc: GAY DE LA TORRE ; Luan Valdivia D.O. Patient Name: JONES PANIAGUA MR#: [id number] : 1980 Exam Date: 04/06/2024 Ordering Doctor: DR Luan Valdivia . RADIOLOGY REPORT PROCEDURE: MM TOMOSYNTHESIS DIAGNOSTIC BI, 04/06/2024, 15:20 US BREAST BI LIMITED, 04/06/2024, 15:37 COMPARISON: MM TOMOSYNTHESIS SCREENING BI, 09/23/2023. MG MAMM [id number] MARK CAD, 09/01/2022. MG MAMM SCREEN 3D [...] stomach cancer at age 56. LOCATION: The [facility] BREAST COMPOSITION: There are scattered areas of [...] Vito Yusuf M.D. Signed By:04/07/2441 DD/ TD/TT: Therapeutic Program Worker: Luan Valdivia DO [facility] Final Result documented in this encounter Visit Diagnoses Not on filedocumented in this encounter Care Teams Lotteries Agent Relationship Specialty Start Date End Date Charles Nicole MD PCP - General Family Medicine 02/09/24 07/17/24 Gay De La Torre MD [address] [place] [address] Referring Physician Family Medicine 07/18/24 documented as of this encounter
--- OUTSIDE RECORDS SUMMARY | 2025-02-26 15:23 | XMS_ITS | Encounter Summary ---
Author Organization [facility] Address [address] [place] [address] Care Team Providers Care Glaze Supervisor Name Role Phone Manuel Klein MD Unavailable [phone] Manuel Klein MD Primary Care Provider +[phone] Manuel Klein MD Unavailable [phone] Source Comments In the event this information is protected by the Federal Confidentiality of Alcohol and Drug AbusePatient Records regulations: The Federal rules restrict any use of the information to criminally investigate or prosecute any alcohol or drug abuse patient.[facility] Encounter Details Date Type Department Care Team (Late st Contact Info) Description 07/06/2024 Patient Msg Referring Physician [address] [place] [address] Provider, Ccf Appointment Social History Tobacco Use [...] lower risk 4 09/24/2022 Data from: https://www.neighborhoodatlas.[facility].edu/. Last address used for calculation [address] 09/24/2022 Comments No Sex and Gender [...] PM EDT [facility] Hematology/Oncology [address] [place] [address] BENLYSTA - 03/21/2025 9:00 AM EDT Office Visit [facility] Laboratory [facility] [place] [address] 4 week follow up IVIG - pt to see MASON for this appt per Fara 03/21/2025 9:20 AM EDT Visit (SP) Office Hematology/Oncology [facility] [place] [address] Jose Cho MD [address] [facility] [place] [address] 4 week follow up IVIG - pt to see MASON for this appt per Fara 03/21/2025 9:40 AM EDT Infusion Center Hematology/Oncology [address] [facility] [place] [address] Gabbi, Chair [address] [facility] [facility] [place] [address] 4 week follow up IVIG - pt to see MASON for this appt per Fara 04/05/2025 2:00 PM EST Infusion Center Hematology/Oncology [address] [facility] [place] [address] BENLYSTA - 05/03/2025 2:00 PM [facility] Infusion Center Hematology/Oncology [address] [place] [address] [place] [address] BENLYSTA - documented as of this encounter Visit Diagnoses Not on filedocumented in this encounter Care Teams Glaze Supervisor Relationship Specialty Start Date End Date Manuel Klein MD PCP - General Family Medicine 02/27/22 Manuel Klein MD Referring Family Medicine 02/12/22 Manuel Klein MD [address] [place] [address] Referring Family Medicine 07/06/24 documented as of this encounter
--- OUTSIDE RECORDS SUMMARY | 2025-02-26 15:23 | XMS_ITS | Encounter Summary ---
Author Organization [facility] Address [address] [place] [address] Care Team Providers Care Veterinarian Small Animal Name Role Phone Manuel Klein MD Unavailable [phone] Manuel Klein MD Primary Care Provider +-[phone] Manuel Klein MD Unavailable [phone] Source Comments In the event this information is protected by the Federal Confidentiality of Alcohol and Drug AbusePatient Records regulations: The Federal rules restrict any use of the information to criminally investigate or prosecute any alcohol or drug abuse patient.[facility] Encounter Details Date Type Department Care Team (Late st Contact Info) Description 05/11/2023 Get Medical Advice Rheumatology [address] [place], [place] [id number] Sandra Park MD [address] [place] [address] Flair Social History Tobacco Use [...] is lower risk 4 09/24/2022 Data from: https://www.neighborhoodatlas.medicine.[facility]/. Last address used for calculation [address] 09/24/2022 Comments No Sex and Gender [...] 2:00 PM EDT Infusion Center Hematology/Oncology [address] [facility] [address] BENLYSTA - 03/21/2025 9:00 AM EDT Office Visit [facility] [address] [place] [address] 4 week follow up IVIG - pt to see MASON for this appt per Fara 03/21/2025 9:20 AM EDT Visit (SP) Office Hematology/Oncology [address] [facility] [address] Jose Cho MD [address] [facility] [address] 4 week follow up IVIG - pt to see MASON for this appt per Fara 03/21/2025 9:40 AM EDT Infusion Center Hematology/Oncology [address] [facility] [address] Stone, Chair 4 [address] [facility] [address] 4 week follow up IVIG - pt to see MASON for this appt per Fara 04/05/2025 2:00 PM EST Infusion Center Hematology/Oncology [address] [facility] [address] BENLYSTA - 05/03/2025 2:00 PM EST Infusion Center Hematology/Oncology [address] [facility] [address] BENLYSTA - documented as of this encounter Visit Diagnoses Diagnosis Other systemic lupus erythematosus with other organ involvement (HCC) documented in this encounter Care Teams Veterinarian Small Animal Relationship Specialty Start Date End Date Manuel Klein MD PCP - General Family Medicine 02/27/22 Manuel Klein MD Referring Family Medicine 02/12/22 Manuel Klein MD [address] [place] [address] Referring Family Medicine 07/06/24 documented as of this encounter
--- OUTSIDE RECORDS SUMMARY | 2025-02-26 15:23 | XMS_ITS | Encounter Summary ---
Author Organization [facility] Address [address] [place] [address] Care Team Providers Care Chief Of Staff Name Role Phone Aime Davidson MD, Lui Nunez Primary Care Provid er Gay De La Torre(Historical) CHEMICAL PUMPER.HOTBED TRANSFER OPERATOR Primary Care Provider Unavailable Manuel Klein MD Unavailable [phone] Manuel Klein MD Primary Care Provider [phone] Manuel Klein MD Unavailable [phone] Source Comments In the event this information is protected by the Federal Confidentiality of Alcohol and Drug AbusePatient Records regulations: The Federal rules restrict any use of the information to criminally investigate or prosecute any alcohol or drug abuse patient.[facility] Encounter Details Date Type Department Care Team (Late st Contact Info) Description 06/06/2015 Patient Msg Internal Medicine [facility] [address] [place] [address] Lui Salomon Jr., MD [address] [place] [address] Appointment Cancellation Request Social History [...] [facility] Hemat[facility]Oncology [address] [place] [address] BENLYSTA - 03/21/2025 9:00 AM EDT Office Visit [facility] [place] [address] 4 week follow up IVIG - pt to see MASON for this appt per Fara 03/21/2025 9:20 AM EDT Visit (SP) Office Hematology/Oncology [facility] [place] [address] Jose Cho MD [address] [place] [address] 4 week follow up IVIG - pt to see MASON for this appt per Fara 03/21/2025 9:40 AM EDT Infusion Center Hematology/Oncology [address] [place] [address] Gabbi, Chair [address] [place] [address] 4 week follow up IVIG - pt to see MASON for this appt per Fara 04/05/2025 2:00 PM EST Infusion Center Hematology/Oncology [address] [facility] [place] [address] BENLYSTA - 05/03/2025 2:00 PM EST Infusion Center Hematology/Oncology [address] [place] [address] BENLYSTA - documented as of this encounter Visit Diagnoses Not on filedocumented in this encounter Care Teams Chief Of Staff Relationship Specialty Start Date End Date Lui Salomon Jr., MD PCP - General Internal Medicine 05/31/14 07/08/20 Gay De La Torre(Historical), CHEMICAL PUMPER.HOTBED TRANSFER OPERATOR PCP - General Family Medicine 10/24/21 02/26/22 Manuel Klein MD PCP - General Family Medicine 02/27/22 Manuel Klein MD Referring Family Medicine 02/12/22 Manuel Klein MD [address] [facility] [address] Referring Family Medicine 07/06/24 documented as of this encounter
--- OUTSIDE RECORDS SUMMARY | 2025-02-26 15:23 | XMS_ITS | Clinical Summary ---
Author Organization [facility] Address [address] [place] [address] Care Team Providers Care Cbx Operator Name Role Phone Gay De La Torre CNP Primary Care Provider [phone] Social History Tobacco Use Types Packs/Day Years [...] age to complete this topic Care Teams Cbx Operator Relationship Specialty Start Date End Date Gay De La Torre CNP [address] [place] [address] PCP - General Nurse Practitioner - Family 03/27/24
--- OUTSIDE RECORDS SUMMARY | 2025-02-26 15:23 | XMS_ITS | Encounter Summary ---
Author Organization [facility] Address [address] [facility] [place] [address] Care Team Providers Care Platform Supervisor Name Role Phone House, Charles Culver MD Primary Care Provider [phone] Gay De La Torre MD Unavailable [phone] Encounter Details Date Type Department Care Team (Late Contact Info) Description 04/26/2024 Clinisync Result Encounter [facility] External Department Unsolicited Judy Arciniega MD [address], [address] [address] Social History Tobacco Use Types Packs/Day Years [...] [facility] [address] [facility] 150 [place] [address] Terence Blum MD 7[address] [facility] 150 [place] [address] 03/19/2025 10:20 AM EDT Office Visit [facility] [address] [place] [address] Mary Grace Mejias MD [address] [facility] 130 [place] [address] 07/25/2025 11:00 AM EST Office Visit [facility] [address] [place] [address] Cynthia English MD [address] [place] [address] documented as of this encounter Procedures Procedure Name Priority Date/Time Associated Diagnosis Comments SEGMENTAL BLOOD PRESSURE 04/26/2024 12:29 PM EST documented in this encounter Results * SEGMENTAL BLOOD PRESSURE (04/26/2024 12:29 PM EST) Anatomical Region Laterality Modality Radiographic Melody ging 04/26/2024 12:2 9 PM EST Narrative 04/26/2024 12:31 PM EST [address] [address] Vein Report Signed Patient: JONES PANIAGUA MR#: [id number] : 1980 Acct:[id number] Age/Sex: 43 / F ADM Date: 04/26/24 Loc: VC Attending Dr: Judy Arciniega M.D. Ordering Physician: Judy Arciniega M.D. Date of Service: 04/26/24 Procedure(s): VC SEGMENTAL PRESSURES Accession Number(s): [id number] cc: GAY DE LA TORRE ; Judy Arciniega M.D. [address] [address] Patient Name: JONES PANIAGUA MRN: [id number] date: 1980 Sex: F Assigned Patient Location: VC Current Patient Location: Accession/Order Number: [id number] Exam Date: 04/26/2024 10:45 Report Date: 04/26/2024 12:29 At the request of: JUDY ARCINIEGA Procedure: VC SEGMENTAL PRESSURES EXAM: VC SEGMENTAL PRESSURES HISTORY: I73.9 COMPARISON: None. FINDINGS: Segmental pressures presented as follows (right, left) in mmHg. Brachial: 102, 109 Upper thigh: 175, 183 Lower thigh: 166, 177 Calf: 140, 143 DPA: 123, 148 TECHNICAL INSTRUCTOR: 139, 155 1st Toe: 141, 143 SAMUEL: [...] Signed By: 04/26/24 1231 DD/ 1229 TD/TT: Stone Spreader Operator: Procedure Note Radiology, Radiologist, MD - 04/26/2024 [place] [address] Vein Report Signed Patient: JONES PANIAGUA BMR#: [id number] : 1980Acct:[id number] Age/Sex: 43 / FADM Date: 04/26/24 Loc: Attending Dr: Judy Arciniega M.D. Ordering Physician: Judy Arciniega M.D. Date of Service: 04/26/24 Procedure(s): VC SEGMENTAL PRESSURES Accession Number(s): [id number] cc: GAY DE LA TORRE ; Judy Arciniega M.D. The [place] [address] Patient Name: JONES PANIAGUA MRN: [id number] date: 1980 Sex: F Assigned Patient Location: Current Patient Location: VC Accession/Order Number: [id number] Exam Date: 04/26/2024 10:45 Report Date: 04/26/2024 12:29 At the request of: JUDY ARCINIEGA Procedure: VC SEGMENTAL PRESSURES EXAM: VC SEGMENTAL PRESSURES HISTORY: I73.9 COMPARISON: None. FINDINGS: Segmental pressures presented as follows (right, left) in mmHg. Brachial: 102, 109 Upper thigh: 175, 183 Lower thigh: 166, 177 Calf: 140, 143 DPA: 123, 148 TECHNICAL INSTRUCTOR: 139, 155 1st Toe: 141, 143 SAMUEL: [...] M.D. Signed By:04/26/24 1231 DD/ 1229 TD/TT: Stone Spreader Operator: us Judy Arciniega MD IMG XR PROCEDURES Final Resu lt documented in this encounter Visit Diagnoses Not on filedocumented in this encounter Care Teams Platform Supervisor Relationship Specialty Start Date End Date Charles Nicole MD PCP - General Family Medicine 02/09/24 07/17/24 Gay De La Torre MD [address] [place], [place] [address] Referring Physician Family Medicine 07/18/24 documented as of this encounter
--- OUTSIDE RECORDS SUMMARY | 2025-02-26 15:23 | XMS_ITS | Encounter Summary ---
Author Organization [facility] Address [address] [place] [address] Care Team Providers Care Chief Pilot Name Role Phone Aime Davidson MD, Lui Nunez Primary Care Provid er Gay De La Torre(Historical) RN EMPLOYEE HEALTH.STRUCTURAL ENGINEERING DRAFTING OFFICER Primary Care Provider Unavailable Manuel Klein MD Unavailable [phone] Manuel Klein MD Primary Care Provider [phone] Manuel Klein MD Unavailable [phone] Source Comments In the event this information is protected by the Federal Confidentiality of Alcohol and Drug AbusePatient Records regulations: The Federal rules restrict any use of the information to criminally investigate or prosecute any alcohol or drug abuse patient.[facility] Encounter Details Date Type Department Care Team (Late st Contact Info) Description 12/31/2014 Patient Msg Medical Records [address] [place] [address] Provider, Ccf Prescription Social History Tobacco Use [...] [facility] Hematology/Oncology [address] [place], [place] [address] [place] [address] TOOTIELYSTA - 03/21/2025 9:00 AM EDT Office Visit [facility] Laboratory [facility] [place] [address] 4 week follow up IVIG - pt to see MASON for this appt per Fara 03/21/2025 9:20 AM EDT Visit (SP) Office Hematology/[place] [address] Jose Cho MD [address] [place] [address] [place] [address] 4 week follow up IVIG - pt to see MASON for this appt per Fara 03/21/2025 9:40 AM EDT Infusion Center Hematology/Oncology [address] [facility] [place] [address] Gabbi, Chair [address] [place] [address] 4 week follow up IVIG - pt to see MASON for this appt per Fara 04/05/2025 2:00 PM EST Infusion Center Hematology/Oncology [address] [facility] [place] [address] BENLYSTA - 05/03/2025 2:00 PM EST Infusion Center Hematology/Oncology [address] [facility] [place] [address] BENLYSTA - documented as of this encounter Visit Diagnoses Not on filedocumented in this encounter Care Teams Chief Pilot Relationship Specialty Start Date End Date Lui Salomon Jr., MD PCP - General Internal Medicine 05/31/14 07/08/20 Gay De La Torre(Historical), RN EMPLOYEE HEALTH.STRUCTURAL ENGINEERING DRAFTING OFFICER PCP - General Family Medicine 10/24/21 02/26/22 Manuel Klein MD PCP - General Family Medicine 02/27/22 Manuel Klein MD Referring Family Medicine 02/12/22 Manuel Klein MD [address] [place] [address] Referring Family Medicine 07/06/24 documented as of this encounter
--- OUTSIDE RECORDS SUMMARY | 2025-02-26 15:23 | XMS_ITS | Encounter Summary ---
Author Organization [facility] Address [address] [facility] [place] [address] Care Team Providers Care Licensed Nursing Assistant Name Role Phone House, Charles Culver MD Primary Care Provider Gay De La Torre MD Unavailable [phone] Encounter Details Date Type Department Care Team (Late Contact Info) Description 06/14/2024 Clinisync Result Encounter NOMS External Department Unsolicited Oly Plascencia PA [address] [place] [address] [place] [address] Social History Tobacco Use Types [...] EDT Consult [facility] [address] [facility] 150 [place] [address] Terence Blum MD 703 [facility] 150 [place] [address] 03/19/2025 10:20 AM EDT Office Visit [facility] [address] [facility] 900 [place] [address] Mary Grace Mejias MD [address] [facility] 130 [place] [address] 07/25/2025 11:00 AM EST Office Visit [facility] [address] [place] [address] Cynthia English MD [address] [place] [address] documented as of this encounter Procedures Procedure Name Priority Date/Time Associated Diagnosis Comments MM TOMOSYNTHESIS DIAGNOSTIC LT 06/14/2024 4:14 PM EST documented in this encounter Results * MM TOMOSYNTHESIS DIAGNOSTIC LT (06/14/2024 4:14 PM EST) Anatomical Region Laterality Modality Other 06/14/2024 4:14 PM EST Narrative 06/14/2024 4:15 PM EST [address] [address] Mammography Report Signed Patient: JONES PANIAGUA MR#: [id number] : 1980 Acct:[id number] Age/Sex: 43 / F ADM Date: 06/14/24 Loc: MAMMO Attending Dr: Oly Plascencia Ordering Physician: Oly Plascencia Results: Date of Service: 06/14/24 Follow Up: Procedure(s): MM tomosynthesis diagnostic LT Accession Number(s): [id number] cc: Oly Plascencia; GAY DE LA TORRE Patient Name: JONES PANIAGUA MR#: [id number] : 1980 Exam Date: 06/14/2024 Ordering Doctor: [...] cancer at age 56. LOCATION: The [facility] BREAST COMPOSITION: There are scattered areas [...] Signed By: 06/14/24 1615 DD/ 1614 TD/TT: Director Of Recruitment: Procedure Note Radiology, Radiologist, MD - 06/14/2024 [place] [address] Mammography Report Signed Patient: JONES PANIAGUA BMR#: [id number] : 1980Acct:[id number] Age/Sex: 43 / FADM Date: 06/14/24 Loc: MAMMO Attending Dr: Oly Plascencia Ordering Physician: Oly PlascenciaResults: Date of Service: 06/14/24Follow Up: Procedure(s): MM tomosynthesis diagnostic LT Accession Number(s): [id number] cc: Oly Plascencia; GAY DE LA TORRE Patient Name: JONES PANIAGUA MR#: [id number] : 1980 Exam Date: 06/14/2024 Ordering Doctor: KELVIN Plascencia . RADIOLOGY REPORT PROCEDURE: MM TOMOSYNTHESIS DIAGNOSTIC LT COMPARISON: US BREAST LT LIMITED, 06/14/2024. MM TOMOSYNTHESISDIAGNOSTIC BI, 04/06/2024. MM TOMOSYNTHESIS SCREENING BI, 09/23/2023. MG MAMM [id number] MARK CAD, 09/01/2022. INDICATIONS: Left Axilla Nodule Calculator Name NCI Breast Cancer Risk Assessment Tool 5 Year Breast Cancer Risk 1.00% Lifetime Breast Cancer Risk 13.20% Personal Breast Cancer No Personal Ovarian Cancer No Treatments None Family Cancers Grandmother-paternal with breast cancer at age 67; Aunt-paternal with breast cancer at age 50; Father with stomach cancer at age 56. LOCATION: The [facility] BREAST COMPOSITION: There are scattered areas [...] Yusuf M.D. Signed By:06/14/245 DD/ 13 TD/TT: Director Of Recruitment: us Oly [facility] Final Result documented in this encounter Visit Diagnoses Not on filedocumented in this encounter Care Teams Licensed Nursing Assistant Relationship Specialty Start Date End Date Charles Nicole MD PCP - General Family Medicine 02/09/24 07/17/24 Gay De La Torre MD [address] [place] [address] Referring Physician Family Medicine 07/18/24 documented as of this encounter
--- OUTSIDE RECORDS SUMMARY | 2025-02-26 15:23 | XMS_ITS | Encounter Summary ---
Author Organization [facility] Address [address] [facility] [place] [address] Care Team Providers Care Vegetable Farmer Name Role Phone House, Charles Culver MD Primary Care Provider [phone] Gay De La Torre MD Unavailable [phone] Encounter Details Date Type Department Care Team (Late Contact Info) Description 06/14/2024 Clinisync Result Encounter [facility] External Department Unsolicited Oly Plascencia PA [address] [place] [address] [place] [address] Social History Tobacco Use Types [...] AM EDT Consult [facility] [address] [facility] [address] [place] [address] Terence Blum MD [address] [facility] [address] [place] [address] 03/19/2025 10:20 AM EDT Office Visit [facility] [address] [facility] [address] [place] [address] Mary Grace Mejias MD [address] [facility] [address] [place] [address] 07/25/2025 11:00 AM EST Office Visit [facility] [address] [place] [address] Cynthia English MD [address] [place] [address] documented as of this encounter Procedures Procedure Name Priority Date/Time Associated Diagnosis Comments US BREAST LT LIMITED 06/14/2024 3:04 PM EST documented in this encounter Results * US BREAST LT LIMITED (06/14/2024 3:04 PM EST) Anatomical Region Laterality Modality Other 06/14/2024 3:04 PM EST Narrative 06/14/2024 3:05 PM EST [address] [address] Ultrasound Report Signed Patient: JONES PANIAGUA MR#: [id number] : 1980 Acct:[id number] Age/Sex: 43 / F ADM Date: 06/14/24 Loc: MAMMO Attending Dr: Oly Plascencia Ordering Physician: Oly Plascencia Date of Service: 06/14/24 Procedure(s): US breast LT limited Accession Number(s): [id number] cc: Oly Plascencia; GAY DE LA TORRE Patient Name: JONES PANIAGUA MR#: [id number] : 1980 Exam Date: 06/14/2024 Ordering Doctor: [...] Signed By: 06/14/24 1505 DD/ 1504 TD/TT: Personal Injury Law Specialist: Procedure Note Radiology, Radiologist, MD - 06/14/2024 [place] [address] Ultrasound Report Signed Patient: JONES PANIAGUA BMR#: [id number] : 1980Acct:[id number] Age/Sex: 43 / FADM Date: 06/14/24 Loc: MAMMO Attending Dr: Oly Plascencia Ordering Physician: Oly Plascencia Date of Service: 06/14/24 Procedure(s): US breast LT limited Accession Number(s): [id number] cc: Oly Plascencia; GAY DE LA TORRE Patient Name: JONES PANIAGUA MR#: [id number] : 1980 Exam Date: 06/14/2024 Ordering Doctor: [...] M.D. Signed By:06/14/24 1505 DD/ 1504 TD/TT: Personal Injury Law Specialist: us [facility] Final Result documented in this encounter Visit Diagnoses Not on filedocumented in this encounter Care Teams Vegetable Farmer Relationship Specialty Start Date End Date Charles Nicole MD PCP - General Family Medicine 02/09/24 07/17/24 Gay De La Torre MD [address] [place] [address] Referring Physician Family Medicine 07/18/24 documented as of this encounter
--- OUTSIDE RECORDS SUMMARY | 2025-02-26 15:23 | XMS_ITS | Encounter Summary ---
Author Organization [facility] Address [address] [facility] [place] [address] Care Team Providers Care Director Meetings Name Role Phone House, Charles Culver MD Primary Care Provider Gay De La Torre MD Unavailable [phone] Encounter Details Date Type Department Care Team (Late Contact Info) Description 04/07/2024 Clinisync Result Encounter [facility] External Department Unsolicited Oly Parnell PA [address] [place] [address] [place] [address] Social History Tobacco Use Types [...] Consult [facility] [address] [facility] [address] [place] [address] Terence Blum MD [address] [facility] [address] [place] [address] 03/19/2025 10:20 AM EDT Office Visit [facility] [address] [facility] [address] [place] [address] Mary Grace Mejias MD [address] [facility] 130 [place] [address] 07/25/2025 11:00 AM EST Office [facility] [address] [place] [address] Cynthia English MD [address] [place] [address] documented as of this encounter Procedures Procedure Name Priority Date/Time Associated Diagnosis Comments US PELVIS W/ TRANSVAGINAL 04/07/2024 4:48 AM EST documented in this encounter Results * US PELVIS W/ TRANSVAGINAL (04/07/2024 4:48 AM EST) Anatomical Region Laterality Modality Other 04/07/2024 4:48 AM EST Narrative 04/07/2024 4:51 AM EST [address] [address] Ultrasound Report Signed Patient: JONES PANIAGUA MR#: [id number] : 1980 Acct:[id number] Age/Sex: 43 / F ADM Date: 04/06/24 Loc: LAB Attending Dr: Oly Parnell Ordering Physician: Oly Parnell Date of Service: 04/06/24 Procedure(s): US pelvis w/ transvaginal Accession Number(s): [id number] cc: GAY Mcpherson [address] [address] Patient Name: JONES PANIAGUA MRN: [id number] date: 1980 Sex: F Assigned Patient Location: LAB Current Patient Location: Accession/Order Number: [id number] Exam Date: 04/06/2024 15:45 Report Date: 04/07/2024 [...] Signed By: 04/07/24 0451 DD/ 0448 TD/TT: Bakery Helper: Procedure Note Radiology, Radiologist, MD - 04/07/2024 [place] [address] Ultrasound Report Signed Patient: JONES PANIAGUA BMR#: [id number] : 1980Acct:[id number] Age/Sex: 43 / FADM Date: 04/06/24 Loc: LAB Attending Dr: Oly Parnell Ordering Physician: Oly Parnell Date of Service: 04/06/24 Procedure(s): US pelvis w/ transvaginal Accession Number(s): [id number] cc: GAY Mcpherson The [address] [address] Patient Name: JONES PANIAGUA MRN: [id number] date: 1980 Sex: F Assigned Patient Location: LAB Current Patient Location: Accession/Order Number: [id number] Exam Date: 04/06/2024 15:45 Report Date: 04/07/2024 [...] Yusuf M.D. Signed By:04/07/24 045 DD/ TD/TT: Bakery Helper: us [facility] Final Result documented in this encounter Visit Diagnoses Not on filedocumented in this encounter Care Teams Director Meetings Relationship Specialty Start Date End Date Charles Nicole MD PCP - General Family Medicine 02/09/24 07/17/24 Gay De La Torre MD [address] [place] [facility] [address] Referring Physician Family Medicine 07/18/24 documented as of this encounter
--- OUTSIDE RECORDS SUMMARY | 2025-02-26 15:23 | XMS_ITS | Encounter Summary ---
Author Organization [facility] Address [facility] [place] [address] Care Team Providers Care Utility Aircrewman Name Role Phone Manuel Klein MD Unavailable [phone] Manuel Klein MD Primary Care Provider [phone] Manuel Klein MD Unavailable [phone] Source Comments In the event this information is protected by the Federal Confidentiality of Alcohol and Drug AbusePatient Records regulations: The Federal rules restrict any use of the information to criminally investigate or prosecute any alcohol or drug abuse patient.[facility] Encounter Details Date Type Department Care Team (Late st Contact Info) Description 03/04/2023 Patient [facility] HB[facility] [address] [place] [address] Provider, [facility] Benlysta Injection Video Social History [...] 4 09/24/2022 Data from: https://www.neighborhoodatlas.medicine.[facility].edu/. Last address used for calculation [address] 09/24/2022 Comments No Sex and Gender [...] 2:00 PM EDT [facility] Center Hematology/Oncology [address] [place] [address] BENLYSTA - 03/21/2025 9:00 AM EDT Office Visit [facility] [address] [place] [address] 4 week follow up IVIG - pt to see MASON for this appt per Fara 03/21/2025 9:20 AM EDT Visit (SP) Office Hematology/Oncology [address] [place] [address] Jose Cho MD [address] [place] [address] 4 week follow up IVIG - pt to see MASON for this appt per Fara 03/21/2025 9:40 AM EDT Infusion Center Hematology/Oncology [address] [place] [address] Gabbi, Chair [address] [place] [address] 4 week follow up IVIG - pt to see [facility]ON for this appt per Fara 04/05/2025 2:00 PM EST Infusion Center Hematology/Oncology [address] [place] [address] [place] [address] BENLYSTA - 05/03/2025 2:00 PM [facility] Infusion Center Hematology/Oncology [address] [place] [address] [place] [address] BENLYSTA - documented as of this encounter Visit Diagnoses Not on filedocumented in this encounter Care Teams Utility Aircrewman Relationship Specialty Start Date End Date Manuel Klein MD PCP - General Family Medicine 02/27/22 Manuel Klein MD Referring Family Medicine 02/12/22 Manuel Klein MD [address] [place] [address] Referring Family Medicine 07/06/24 documented as of this encounter
--- OUTSIDE RECORDS SUMMARY | 2025-02-26 15:28 | XMS_ITS | CCD ---
Author Organization [facility] Care Team Providers Care Technology Sales Representative Name Role Phone VICTOR MANUEL GUZMAN Referring Unavailable Unavailable Primary Care Provider UnavailJONAS Stuart Referring Unavailable Britt GEAR GENERATOR SET UP OPERATOR.MANAGER EXPORT, Gay Primary Care Provider Mirela Kelsey Unavailable Britt GEAR GENERATOR SET UP OPERATOR.Gay BISWAS Primary Care Provider [phone] Manuel Ferris MD Unavailable Manuel Ferris MD Primary Care Provider [phone] Manuel Ferris MD Unavailable Manuel Ferris MD Primary Care Provider [phone] Manuel Ferris MD Unavailable Manuel Ferris MD Primary Care Provider [phone] MANUEL LEYVA Primary Care Unavailable MISC, DR SMITH Consulting Unavailable MISC, DR SMITH Attending Unavailable MISC, DR SMITH Admitting Unavailable MANUEL GOMEZ Consulting Unavailable ENID ., DR GALLEGOS Consulting Unavailable HAY ., DR GALLEGOS Attending Unavailable HOY ., DR BURKETT Primary Care Unavailable ENID ., DR GALLEGOS Admitting Unavailable KRISTINA GARRETT Consulting Unavailable HOCristina ., DR BURKETT Primary Care Unavailable HOCristina ., DR BURKETT Consulting Unavailable JOSY ., DR BURKETT Attending Unavailable JOSY ., DR BURKETT Admitting Unavailable GAY ENCISO Attending Unavailable GAY ENCISO Admitting Unavailable JOSY ., DR BURKETT Primary Care Unavailable HOY ., DR BURKETT Consulting Unavailable HOCristina ., DR BURKETT Primary Care Unavailable HOY ., DR BURKETT Consulting Unavailable JOSY ., DR BURKETT Attending Unavailable JOSY ., DR BURKETT Admitting Unavailable BUFFY, DR DIETZ Consulting Unavailable BUFFY, DR DIETZ Attending Unavailable BUFFY, DR DIETZ Admitting Unavailable GAY ENCISO Primary Care Unavailable BUFFY, DR DIETZ Consulting Unavailable BLANK, DR DIETZ Attending Unavailable BLANK, DR DIETZ Admitting Unavailable CHEYENNEY ., DR BURKETT Primary Care Unavailable PARMJIT [...] Primary Care Provider UnavailAurora Carney MD Unavailable Gay Workman S Primary Care Provider Manuel Ferris MD Primary Care Provider [phone] MD Adolfo Kang Attending Provider CARISSA Enciso-Ananya Estrada Primary Care Provider Charles Nicole MD Primary Care Provider CALOS MENDOZA Attending Unavailable Unavailable Primary Care Provider UnavailManuel Calixto MD Unavailable Britt VETERANS' COUNSELOR-C, Gay Estrada Primary Care Provider Jorge Luis LEE, Adolfo S Attending Provider ALHAJI HEAD Attending Unavailable MANUEL FERRIS Primary Care Unavailable ALHAJI HEAD Attending Unavailable VAIBHAV CARVALHO Referring Unavailable MANUEL FERRIS Primary Care Unavailable Gay Enciso MD Unavailable Mitali THORPE-TRUE, Michelle London Unavailable Aurora Patel MD Unavailable Gay Workman S Primary Care Provider LOIS HOLM Attending Unavailable BRITT, GAY S Primary Care Unavailable LOIS HOLM Attending Unavailable LOIS HOLM Referring Unavailable BRITT, GAY S Primary Care Unavailable Britt VETERANS' COUNSELOR-C, Gay Natalie Primary Care Provider Adolfo Kang MD Attending Provider Britt VETERANS' COUNSELOR-C, Gay Natalie Primary Care Provider Jorge Luis LEE, Adolfo Jane Attending Provider Margie Arnett NP Attending Provider Britt VETERANS' COUNSELOR-C, Gay Natalie Primary Care Provider Jorge Luis LEE, Adolfo Jane Attending Provider Bandar Portillo APRN Attending Provider Adolfo Kang Admitting Unavailable Adolfo Kang Attending Unavailable Britt, Gay Natalie Primary Care Unavailable Adolfo Kang Admitting Unavailable Adolfo Kang Attending Unavailable Britt, Gay Natalie Primary Care Unavailable Janes Barfield Admitting Unavailab le Janes Barfield Attending Unavailab le Britt, Gay Natalie Primary Care Unavailable Adolfo Kang Admitting Unavailable Adolfo Kang Attending Unavailable Britt, Gay Natalie Primary Care Unavailable Britt VETERANS' COUNSELOR-C, Gay Natalie Primary Care Provider Adolfo Kang MD Attending Provider Janes Barfield MD Attending Provider Adolfo Kang MD Other Provider BERNABE ENGLISH Attending Unavailable GORDO BARFIELD Attending Unavailable LUAN VALDIVIA Attending Unavailable MELISSA HUDDLESTON Attending Unavailable OLY PARNELL Referring Unavailable BERNABE ENGLISH Attending Unavailable OLY PARNELL Attending Unavailable MARKY MIKE Attending Unavailable GORDO BARFIELD Attending Unavailable BRITT, GAY Referring Unavailable OLY PARNELL Attending Unavailable ABHYANKAR, VERA Referring Unavailable MANUEL FERRIS Primary Care Unavailable ABHYANKAR, VERA Referring Unavailable HOY, MANUEL M Primary Care Unavailable LAST, LYNNE Referring Unavailable HOY, MANUEL M Primary Care Unavailable ABHYANKAR, VERA Referring Unavailable ANDRE CARVALHOE [...] HOY, MANUEL M Primary Care Unavailable ABHYANKAR, EVRA Referring Unavailable HOY, MANUEL M Primary Care Unavailable LAST, LYNNE Referring Unavailable HOY, MANUEL M Primary Care Unavailable ABHYANKAR, VERA Referring Unavailable HOY, MANUEL M Primary Care Unavailable HOY, MANUEL M Primary Care Unavailable HOY, MANUEL M Primary Care Unavailable HOY, MANUEL M Primary Care Unavailable VAIBHAV CARVALHO Attending Unavailable ABHYANKAR, VERA Referring Unavailable HOY, MANUEL M Primary Care Unavailable ABHYANKAR, VERA Referring Unavailable HOY, MANUEL M Primary Care Unavailable LAST, LYNNE Referring Unavailable HOY, MANUEL M Primary Care Unavailable HOY, MANUEL M Primary Care Unavailable ABHYANKAR, VERA Referring Unavailable MARKY BARNES Attending Unavailable HOY, MAUNEL M Primary Care Unavailable ANDRE CARVALHOE Referring Unavailable HOY, MANUEL M Primary Care Unavailable ABHYANKAR, VERA Referring Unavailable ANDRE CARVALHOE [...] Unavailable HOY, MANUEL M Primary Care Unavailable ANDRE CARVALHOE Attending Unavailable HOY, MANUEL M Primary Care Unavailable ABHYANKAR, VERA Referring Unavailable LAST, LYNNE Attending Unavailable HOY, MANUEL M Primary Care Unavailable LAST, LYNNE Referring Unavailable HOY, MANUEL M Primary Care Unavailable [place] Attending Unavailable HOY, MANUEL M Primary Care Unavailable [place] Referring Unavailable LAST, LYNNE Referring Unavailable HOY, [...] sources) Trimethoprim Drug Allergy Other: See Comments [facility] Doxycycline (3 sources) Doxycycline Drug Allergy Other: See Comments [facility] Latex (3 sources) Latex Substance Allergy Rash [facility] Lincosamides (antibiotic) (3 sources) Clindamycin Drug Allergy Unknown [facility] Opioid Agonists (3 sources) Codeine Drug Allergy Other: See Comments [facility] Sulfamethoxazole / Trimethoprim (4 sources) Sulfamethoxazole / Trimethoprim Drug Allergy [facility] Sulfonamides (antibiotic) (3 sources) Sulfamethoxazole Drug Allergy Other: See Comments [facility] Work Phone: (20 sources) Codeine; Translations: [CODEINE] Drug Allergy Other: See Comments [facility] (20 sources) Latex; Translations: [LATEX] Drug Allergy Rash [facility] (20 sources) Sulfamethoxazole; Translations: [SULFAMETHOXAZOLE] Drug Allergy GI Upset, Other: See Comments [facility] (20 sources) Clindamycin; Translations: [CLINDAMYCIN] Drug Allergy Unknown [facility] (4 sources) Sulfamethoxazole / Trimethoprim Drug Allergy lymph swelling [employer] Other (20 sources) Doxycycline; Translations: [DOXYCYCLINE] Drug Allergy Other: See Comments, Other, Unknown, Other (See Comments) [facility] (20 sources) Sulfamethoxazole / Trimethoprim; Translations: [SULFAMETHOXAZOLE-T RIMETHOPRIM] Drug Allergy Swelling, Other, GI Disturbance, Other (See Comments) [facility] (20 sources) Trimethoprim; Translations: [TRIMETHOPRIM] Drug Allergy Other: See Comments [facility] (1 source) Latex Drug allergy (disorder) [facility] Rep[facility] (1 source) Sulfamethoxazole / Trimethoprim Drug Allergy [facility] (20 sources) Sulfamethoxazole Allergy to substance [facility] (20 sources) Latex Propensity to adverse reactions 015 Rash [facility] (1 source) Omeprazole; Translations: [OMEPRAZOLE] Drug Allergy [facility] Repository (1 source) pantoprazole; Translations: [PANTOPRAZOLE] Drug Allergy [facility] (1 source) Clindamycin Drug Allergy [facility] Repository (1 source) Sulfamethoxazole Drug Allergy [facility] Rep[facility] (1 source) Trimethoprim Drug Allergy [facility] Rep[facility] Medications Current Medications Medication Drug [...] mg, ORAL, ONCE, 1 dose , On Wed01/11/25 at 1430 Start: 12-14-2024 End: 12-14-2024 take 1 dose by mouth once 1,000 mg, ORAL, ONCE, 1 dose , On Wed12/14/24 at 1430 Start: 11-29-2024 End: 11-29-2024 take [...] other organ involvement (HCC) , Encounter for 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 TAKE 3 TABLETS BY MOUTH DAILY WITH FOOD. HOLD IF ON ANTIBIOTICS OR ILL. 90 tablet 3 02/16/2023 Active Start: 08-19-2022 End: 11-24-2022 take 2 tablets by mouth once daily at mealtime azaTHIOprine (IMURAN) 50 mg tablet Indications: Other systemic lupus erythematosus with other organ involvement (HCC) , Encounter for 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 Take 2tab daily [...] oral capsule (6 sources) Cephalosporin Antibacterial Start: 5 End: 5 take 1 capsule by mouth in the [...] 05-05-2022 End: 09-19-2049 CPAP/BIPAP/OTHER Indications : JOSE RAFALE (obstructive sleep apnea) Type .CPAPSettings into a [...] times a day as needed. 02/01/2024 Active renbeczgmaSREBQ-rdjbfu-oeyed belia (BMX 1:1:1) 1:1:1 liqd (20 sources) Start: 07-12-2024 take 5 mL by mouth every six hours as needed tmmjnxrzzsHZHYC-ncowxw-rejrvmrli (BMX 1:1:1) 1:1:1 liqd Take 5 mL [...] Comment on above: Take 1 capsule by [facility] once daily. ergocalciferol 1.25 mg oral capsule (20 sources) Provitamin D2 Compound Start: 11-13-2024 Ergocalciferol (Vitamin D2) 1,250 mcg (50,000 unit) capsule Active 92464 UNIT PO 3 Times a week November [...] D2) 1,250 mcg (50,000 unit) capsule Discontinued 72157 UNIT PO every week October 20, 2023 [...] 0 03/06/2021 Active take 1 capsule by [facility] every week ergocalciferol (Vitamin D2) 1.25 MG (73001 UT) capsule Take 50,000 Units by mouth [...] Active Start: 10-20-2023 take 4 tablets by [facility] once daily Metoprolol Tartrate 50 mg [...] Active Start: 05-25-2022 take 1 tablet by [facility] twice daily metoprolol tartrate, short acting, (LOPRESSOR) [...] MOUTH DAILY 0 01/19/2022 07/25/2022 Discontinued Start: 08-29-2022 take 1 capsule by [facility] once daily naltrexone capsule 1 mg TAKE ONE CAPSULE BY MOUTH DAILY 0 01/19/2022 Active Comment on above: TAKE ONE CAPSULE BY MOUTH DAILY nitroglycerin 0.4 mg sublingual tablet (20 sources) Nitrate Vasodilator Start: End: 3 nitroglycerin sublingual (NITROQUICK) 0.4 mg SL tablet Dissolve 0.4 mg under the tongue. 0 10/07/2020 07/25/2022 Discontinued Comment on above: Dissolve 0.4 mg unde r the tongue. nystatin 990551 unt/ml oral suspension (20 sources) Polyene Antifungal [...] swallow Start: 07-25-2024 End: 08-08-2024 nystatin (Mycostatin) 128942 UNIT/ML suspension Indications: Rash and other nonspecific [...] Start: 10-20-2023 take 2 tablets by mo [facility] once daily Prednisone 10 mg tablet Active [...] g 11 07/25/2024 Active Start: 08-16-2023 tacrolimus (HI OTOPIC) 0.1 % ointment Apply 1 Application [...] 11 07/15/2023 Active Vitamin D 50 MCG (2000 UT) (4 sources) take 1 tablet by ce th every week Vitamin D 50 MCG (2000 UT) 1 tablet Orally weekly Active Completed/Discontinued [...] 60 Minutes, ONCE, 1 dose, On [place]mi 11/16/24 at 1400, Total Volume - EXP: 11/16/20240 RT Protect From Light Start: 10-19-2024 End: 10-19-2024 1,275 mg (10 mg/kg/dose 127. 5 kg), INTRAVENOUS, at 250 mL/hr, Administer over 60 Minutes, ONCE, 1 dose, On [place]mi 10/19/24 at 1430, Total Volume - EXP: 10/19/20242204 [...] 60 Minutes, ONCE, 1 dose, On [place] 01/11/25 at 1430, Total Volume - EXP: 01/11/20252204 RT Protect From Light Start: 12-14-2024 End: 12-14-2024 1,307 mg (10 mg/kg/dose 130. 7 kg), INTRAVENOUS, at 250 mL/hr, Administer over 60 Minutes, ONCE, 1 dose, On [place]mi 12/14/24 at 1430, Total Volume - EXP: 12/14/20242014 RT Protect From Light belimumab 1,318 mg in NaCl 0.9% 250 mL (BENLYSTA) (1 source) Start: 09-18-2024 End: 09-18-2024 1,318 mg (10 mg/kg/dose 131.8 kg), INTRAVENOUS, at 125 mL/hr, Administer over 120 Minutes, ONCE, 1 dose, On 09/18/24 at 1400, Total Volume - EXP: 09/18/2024 [...] mg oral capsule (20 sources) Anticholinergic Start: 4 End: 4 take 1 capsule by mouth in the [...] 50 mg, INTRAVENOUS, ONCE, 1 dose, On 11/29/24 at 1000 Start: 10-31-2024 End: 10-31-2024 50 [...] 1 dose, On Wed05/19/24 at 1030, EXP: 94405/21/24 Refrigerate - Prepared as a 10% solution [...] on above: Take 1 capsule by mo [facility] twice daily. pravastatin sodium 20 mg oral [...] 1,000 mcg, INTRAMUSCULAR, ONCE, 1 dose, On 09/06/24 at 1000 Start: 08-08-2024 End: 08-08-2024 inject [...] [Anemia of chronic disease] Onset: 5 Chronic Diabetes mellitus without complication (20 sources) Increased [...] of unspecified breast] Onset: 4 12-16-2023 Chronic Nonmalignant breast conditions (20 sources) [...] aftercare (1 source) Polypharmacy ; Translations: [Other 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 (current) drug therapy] Episodic Other aftercare (1 source) Long-term current use of drug therapy; Translations: [Encounter for jail 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] 11-11-2023 Episodic Other [...] [Other iron deficiency anemia] Onset: 3 Episodic Deficiency and other anemia (1 source) Other megaloblastic anemias, not elsewhere classified; Translations: [Megaloblastic anemia due to vitamin B12 deficiency] Onset: 2 Episodic Diseases of mouth; excluding [...] lymph nodes, unspecified] Onset: 1 03-05-2021 Episodic Nutritional deficiencies (20 sources) Cobalamin deficiency; Translations: [Deficiency of other specified B group vitamins] Onset: 5 Episodic Other aftercare (20 sources) Drug therapy finding; Translations: [Other 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 (current) drug therapy] Onset: 1 Episodic Other aftercare (20 sources) H/O: high risk medication; Translations: [Other jail (current) drug therapy] Onset: 3 06-15-2022 Episodic Other aftercare (1 source) Other 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 (current) drug therapy; Translations: [OTH REFRIGERATION PLANT OPERATOR 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 THERAPY] Onset: 2 Episodic Other aftercare (20 sources) Long-term current use of systemic steroid; Translations: [FPC (current) use of 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] Onset: 3 [...] CBC W Auto Differential pane l (Bld)on 02-21-2025 Basophils (Bld) [#/Vol] 0.09 10*3/uL Normal <0.11 [facility] Comment on above: Order Comment: Speci men Type: BLOOD SPECIMENOrdering Facility: [facility] Address: [address] [place] [address] Performed By: #### 5 7021-8 ####[facility] [id number] [place] [address] Basophils/100 WBC (Bld) 0.7 % Normal [facility] Comment on above: Order Comment: Speci men Type: BLOOD SPECIMENOrdering Facility: [facility] Address: [address] [place] [address] Performed By: #### 5 7021-8 ####[facility] [id number] [place] [address] Differential cell count method Nom (Bld) Auto Normal [facility] Comment on above: Order Comment: Speci men Type: BLOOD SPECIMENOrdering Facility: [facility] Address: [address] [place] [address] Performed By: #### 5 7021-8 ####[facility] [id number] [place] [address] Eosinophils (Bld) [#/Vol] 0.11 10*3/uL Normal <0.46 [facility] Comment on above: Order Comment: Speci men Type: BLOOD SPECIMENOrdering Facility: [facility] Address: [address] [place] [address] Performed By: #### 5 7021-8 ####[facility] [id number] [place] [address] Eosinophils/100 WBC (Bld) 0.8 % Normal [facility] Comment on above: Order Comment: Speci men Type: BLOOD SPECIMENOrdering Facility: [facility] Address: [address] [place] [address] Performed By: #### 5 7021-8 ####[facility] [id number] [place] [address] Erythrocyte distribution width (RBC) [Ratio] 14.3 % Normal 11.5-15.0 [facility] Comment on above: Order Comment: Speci men Type: BLOOD SPECIMENOrdering Facility: [facility] Address: [address] [place] [address] Performed By: #### 5 7021-8 ####[facility] [id number] [place] [address] Hematocrit (Bld) [Volume fraction] 46.0 % Normal 36.0-46.0 [facility] Comment on above: Order Comment: Speci men Type: BLOOD SPECIMENOrdering Facility: [facility] Address: [address] [place] [address] Performed By: #### 5 7021-8 ####[facility] [id number] [place] [address] Hemoglobin (Bld) [Mass/Vol] 15.1 g/dL Normal 11.5-15.5 [facility] Comment on above: Order Comment: Speci men Type: BLOOD SPECIMENOrdering Facility: [facility] Address: [address] [place] [address] Performed By: #### 5 7021-8 ####[facility] [id number] [place] [address] Immature granulocytes (Bld) [#/Vol] 0.21 10*3/uL High <0.10 [facility] Comment on above: Order Comment: Speci men Type: BLOOD SPECIMENOrdering Facility: [facility] Address: [address] [place] [address] Performed By: #### 5 7021-8 ####[facility] [id number] [place] [address] Immature granulocytes/100 WBC (Bld) 1.6 % Normal [facility] Comment on above: Order Comment: Speci men Type: BLOOD SPECIMENOrdering Facility: [facility] Address: [address] [place] [address] Performed By: #### 5 7021-8 ####[facility] [id number] [place] [address] Lymphocytes (Bld) [#/Vol] 1.89 10*3/uL Normal 1.00-4.00 [facility] Comment on above: Order Comment: Speci men Type: BLOOD SPECIMENOrdering Facility: [facility] Address: [address] [place] [address] Performed By: #### 5 7021-8 ####[facility] [id number] [place] [address] Lymphocytes/100 WBC (Bld) 14.4 % Normal [facility] Comment on above: Order Comment: Speci men Type: BLOOD SPECIMENOrdering Facility: [facility] Address: [address] [place] [address] Performed By: #### 5 7021-8 ####[facility] [id number] [place] [address] MCH (RBC) [Entitic mass] 31.7 pg Normal 26.0-34.0 [facility] Comment on above: Order Comment: Speci men Type: BLOOD SPECIMENOrdering Facility: [facility] Address: [address] [place] [address] Performed By: #### 5 7021-8 ####[facility] [id number] [place] [address] MCHC (RBC) [Mass/Vol] 32.8 g/dL Normal 30.5-36.0 [facility] Comment on above: Order Comment: Speci men Type: BLOOD SPECIMENOrdering Facility: [facility] Address: [address] [place] [address] Performed By: #### 5 7021-8 ####[facility] [id number] [place] [address] MCV (RBC) [Entitic vol] 96.4 fL Normal 80.0-100.0 [facility] Comment on above: Order Comment: Speci men Type: BLOOD SPECIMENOrdering Facility: [facility] Address: [address] [place] [address] Performed By: #### 5 7021-8 ####[facility] [id number] [place] [address] Monocytes (Bld) [#/Vol] 0.92 10*3/uL High <0.87 [facility] Comment on above: Order Comment: Speci men Type: BLOOD SPECIMENOrdering Facility: [facility] Address: [address] [place] [address] Performed By: #### 5 7021-8 ####[facility] [id number] [place] [address] Monocytes/100 WBC (Bld) 7.0 % Normal [facility] Comment on above: Order Comment: Speci men Type: BLOOD SPECIMENOrdering Facility: [facility] Address: [address] [place] [address] Performed By: #### 5 7021-8 ####[facility] [id number] [place] [address] Neutrophils (Bld) [#/Vol] 9.94 10*3/uL High 1.45-7.50 [facility] Comment on above: Order Comment: Speci men Type: BLOOD SPECIMENOrdering Facility: [facility] Address: [address] [place] [address] Performed By: #### 5 7021-8 ####[facility] [id number] [place] [address] Neutrophils/100 WBC (Bld) 75.5 % Normal [facility] Comment on above: Order Comment: Speci men Type: BLOOD SPECIMENOrdering Facility: [facility] Address: [address] [place] [address] Performed By: #### 5 7021-8 ####[facility] [id number] [place] [address] Nucleated RBC (Bld) [#/Vol] 10*3/uL Normal <0.01 [facility] Comment on above: Order Comment: Speci men Type: BLOOD SPECIMENOrdering Facility: [facility] Address: [address] [place] [address] Performed By: #### 5 7021-8 ####[facility] [id number] [place] [address] Nucleated RBC/100 WBC (Bld) [Ratio] 0.0 /100 WBC Normal [facility] Comment on above: Order Comment: Speci men Type: BLOOD SPECIMENOrdering Facility: [facility] Address: [address] [place] [address] Performed By: #### 5 7021-8 ####[facility] [id number] [place] [address] Platelet mean volume (Bld) [Entitic vol] 9.9 fL Normal 9.0-12.7 [facility] Comment on above: Order Comment: Speci men Type: BLOOD SPECIMENOrdering Facility: [facility] Address: [address] [place] [address] Performed By: #### 5 7021-8 ####[facility] [id number] [place] [address] Platelets (Bld) [#/Vol] 305 10*3/uL Normal 150-400 [facility] Comment on above: Order Comment: Speci men Type: BLOOD SPECIMENOrdering Facility: [facility] Address: [address] [place] [address] Performed By: #### 5 7021-8 ####[facility] [id number] [place] [address] RBC (Bld) [#/Vol] 4.77 10*6/uL Normal 3.90-5.20 [facility] Comment on above: Order Comment: Speci men Type: BLOOD SPECIMENOrdering Facility: [facility] Address: [address] [place] [address] Performed By: #### 5 7021-8 ####[facility] [id number] [place] [address] WBC (Bld) [#/Vol] 13.16 10*3/uL High 3.70-11.00 [facility] Comment on above: Order Comment: Speci men Type: BLOOD SPECIMENOrdering Facility: [facility] Address: [address] [place] [address] Performed By: #### 5 7021-8 ####[facility] [id number] [place] [address] CNOVSPon 02-21-2025 CNOVSP Normal [facility] CNPNon 02-21-2025 CNPN Normal [facility] Comprehensive metabolic 2000 panelon 02-21-2025 Albumin [Mass/Vol] 4.3 g/dL Normal 3.9-4.9 [facility] Comment on above: Order Comment: Speci men Type: BLOOD SPECIMENOrdering Facility: [facility] Address: [address] [place] [address] Performed By: #### 2 4323-8 ####[facility] [id number] [place] [address] ALP [Catalytic activity/Vol] 83 U/L Normal 34-123 [facility] Comment on above: Order Comment: Speci men Type: BLOOD SPECIMENOrdering Facility: [facility] Address: [address] [place] [address] Performed By: #### 2 4323-8 ####[facility] [id number] [place] [address] ALT [Catalytic activity/Vol] 49 U/L High 7-38 [facility] Comment on above: Order Comment: Speci men Type: BLOOD SPECIMENOrdering Facility: [facility] Address: [address] [place] [address] Performed By: #### 2 4323-8 ####[facility] LABCLIA [id number] [place] [address] Anion gap [Moles/Vol] 17 mmol/L High 8-15 [facility] Comment on above: Order Comment: Speci men Type: BLOOD SPECIMENOrdering Facility: [facility] Address: [address] [place] [address] Performed By: #### 2 4323-8 ####[facility] LABCLIA [id number] [place] [address] AST [Catalytic activity/Vol] 20 U/L Normal 13-35 [facility] Comment on above: Order Comment: Speci men Type: BLOOD SPECIMENOrdering Facility: [facility] Address: [address] [place] [address] Performed By: #### 2 4323-8 ####[facility] LABCLIA [id number] [place] [address] Bilirubin [Mass/Vol] 0.3 mg/dL Normal 0.2-1.3 [facility] Comment on above: Order Comment: Speci men Type: BLOOD SPECIMENOrdering Facility: [facility] Address: [address] [place], [place] [address] Performed By: #### 2 4323-8 ####[facility] LABCLIA [id number] [place] [address] Calcium [Mass/Vol] 10.2 mg/dL Normal 8.5-10.2 [facility] Comment on above: Order Comment: Speci men Type: BLOOD SPECIMENOrdering Facility: [facility] Address: [address] [place] [address] Performed By: #### 2 4323-8 ####[facility] LABCLIA [id number] [place] [address] Chloride [Moles/Vol] 101 mmol/L Normal 98-107 [facility] Comment on above: Order Comment: Speci men Type: BLOOD SPECIMENOrdering Facility: [facility] Address: [address] [place] [address] Performed By: #### 2 4323-8 ####[facility] LABCLIA [id number] [place] [address] CO2 [Moles/Vol] 20 mmol/L Low 22-30 [facility] Comment on above: Order Comment: Speci men Type: BLOOD SPECIMENOrdering Facility: [facility] Address: [address] [place] [address] Performed By: #### 2 4323-8 ####[facility] LABCLIA [id number] [place] [address] Creatinine [Mass/Vol] 0.49 mg/dL Low 0.58-0.96 [facility] Comment on above: Order Comment: Speci men Type: BLOOD SPECIMENOrdering Facility: [facility] Address: [address] [place] [address] Performed By: #### 2 4323-8 ####[facility] LABCLIA [id number] [place] [address] eGFRcr SerPlBld CKD-EPI 2020 119 mL/min/1.73m??? Normal >=60 [facility] Comment on above: Order Comment: Speci men Type: BLOOD SPECIMENOrdering Facility: [facility] Address: [address] [place] [address] Result Comment: Erin mated Glomerular Filtration Rate [...] actual GFR. Performed By: #### 2 4323-8 ####[facility] LABCLIA [id number] [place] [address] Glucose [Mass/Vol] 248 mg/dL High 74-99 [facility] Comment on above: Order Comment: Semaj cortés Type: BLOOD SPECIMENOrdering Facility: [facility] Address: [address] [place], [place] [id number] Result Comment: The [place] Diabetes Association (ADA) provides guidance for cutoff [...] Standards of Medical Care in Diabetes 2016, [place] [employer]. Diabetes Care. 2016.39(Suppl 1). Performed By: #### 2 4323-8 ####[facility] LABCLIA [id number] [place] [address] Potassium [Moles/Vol] 4.1 mmol/L Normal 3.7-5.1 [facility] Comment on above: Order Comment: Semaj cortés Type: BLOOD SPECIMENOrdering Facility: [facility] Address: [address] [place] [address] Performed By: #### 2 4323-8 ####[facility] LABCLIA [id number] [place] [address] Protein [Mass/Vol] 7.6 g/dL Normal 6.3-8.0 [facility] Comment on above: Order Comment: Semaj cortés Type: BLOOD SPECIMENOrdering Facility: [facility] Address: [address] [place] [address] Performed By: #### 2 4323-8 ####[facility] LABCLIA [id number] [place] [address] Sodium [Moles/Vol] 138 mmol/L Normal 136-144 [facility] Comment on above: Order Comment: Speci men Type: BLOOD SPECIMENOrdering Facility: [facility] Address: [address] [place] [address] Performed By: #### 2 4323-8 ####[facility] LABCLIA [id number] [place] [address] Urea nitrogen [Mass/Vol] 16 mg/dL Normal 7-21 [facility] Comment on above: Order Comment: Speci men Type: BLOOD SPECIMENOrdering Facility: [facility] Address: [address] [place] [address] Performed By: #### 2 4323-8 ####[facility] LABCLIA [id number] [place] [address] Ferritin SerPl-mCncon 2024 Ferritin [Mass/Vol] 83.6 ng/mL Normal 14.7-205.1 [facility] Comment on above: Order Comment: Speci men Type: BLOOD SPECIMENOrdering Facility: [facility] Address: [address] [place] [address] Performed By: #### 5 0190-8, 2284-8, 2132-9, 2276-4 ####[facility] LABCLIA [id number] [place] [address] [place] Folate SerPl-mCncon 02-22-20 25 Folate [Mass/Vol] ng/mL Normal >4.7 [facility] Comment on above: Order Comment: Speci men Type: BLOOD SPECIMENOrdering Facility: [facility] Address: [address] [place] [address] Result Comment: A re sult of > 20 ng/mL is not necessarily indicative of a pathologic or treatable condition: it reflects a limitation of the test methodology.Assay reference range: 4.8 to 24.2 ng/mL. Suitable for detection of folate deficiency.Reference:Folate III (Folate III) [package insert V 1.0 American]. [facility], [place], [place]: March 2015. Performed By: #### 5 0190-8, 2284-8, 2132-9, 2276-4 ####[facility] LABCLIA [id number] [place] [address] [place] IMMUNOGLOBULINS,IGG,IGA,IGMo n 02-21-2025 IgA [Mass/Vol] 184 mg/dL Normal 70-400 [facility] Comment on above: Order Comment: Speci men Type: BLOOD SPECIMENOrdering Facility: [facility] Address: [address] [place] [address] Performed By: #### S ERIMM ####[facility] LABCLIA [id number] [place] [address] [place] IgG [Mass/Vol] 610 mg/dL Low 700-1600 [facility] Comment on above: Order Comment: Speci men Type: BLOOD SPECIMENOrdering Facility: [facility] Address: [address] [place] [address] Performed By: #### S ERIMM ####[facility] LABCLIA [id number] [address] [place] IgM [Mass/Vol] 454 mg/dL High 40-230 [facility] Comment on above: Order Comment: Speci men Type: BLOOD SPECIMENOrdering Facility: [facility] Address: [address] [place] [address] Performed By: #### S ERIMM ####[facility] LABIA [id number] [place] [id number] [place] Iron and Iron binding capaci ty panelon 02-21-2025 Iron [Mass/Vol] 156 ug/dL Normal 41-186 [facility] Comment on above: Order Comment: Speci men Type: BLOOD SPECIMENOrdering Facility: [facility] Address: [address] [place] [address] Performed By: #### 5 0190-8, 2283-8, 2132-01, 2275-08 ####[facility] LABCLIA [id number] [place] [id number] [place] Iron binding capacity [Mass/Vol] 443 ug/dL High 232-386 [facility] Comment on above: Order Comment: Speci men Type: BLOOD SPECIMENOrdering Facility: [facility] Address: [address] [place] [address] Performed By: #### 5 0190-8, 2283-8, 2132-01, 2275-08 ####[facility] LABIA [id number] [place] [address] [place] Iron/TIBC [Molar ratio] 35.2 % Normal 15.0-57.0 [facility] Comment on above: Order Comment: Speci men Type: BLOOD SPECIMENOrdering Facility: [facility] Address: [address] [place] [address] Performed By: #### 5 0190-8, 2283-8, 2132-01, 2275-08 ####[facility] LABIA [id number] [place] [address] [place] Vit B12 [facility] 10-01-2 025 Cobalamin (Vitamin B12) [Mass/Vol] 694 pg/mL Normal 232-1245 [facility] Comment on above: Order Comment: Speci men Type: BLOOD SPECIMENOrdering Facility: [facility] Address: [address] [place], [place] [address] Performed By: #### 5 0190-8, 2283-8, 2132-01, 2275-08 ####[facility] LABIA [id number] [place] [address] [place] CNPNon 02-12-2025 CNPN Normal [facility] HCG ( test) Marcelo varela Ql (U)Ordered By: Adolfo Kang on 01-31-2025 HCG ( test) Ql (U) Negative [facility] HCG,Urineon 01-31-2025 Beta HCG ( test) Ql (U) Negative Normal [facility] Comment on above: Result Comment: PERF ORMED BY: [facility] [address] [place] [address] PATHOLOGIST AREA INTELLIGENCE TECHNICIAN TIM FOOTE M.D. Performed By: #### U HCG #### [facility] [address] [place] [id number] [facility] BI US BREAST LIMITED LEFTon 01-26-2025 BI [...] Normal Not Available CNPNon 01-18-2025 CNPN Normal [facility] 25([place])D3 [facility] 25-hydroxyvitamin D3 [Mass/Vol] 32.2 ng/mL Normal 31.0-80.0 [facility] Comment on above: Order Comment: Speci men Type: BLOOD SPECIMENOrdering Facility: [facility] Address: [address] [place] [address] Performed By: #### 1 989-3 ####[facility] LABCLIA [id number] [address] OF [facility] BLOOD TB SCREENon 01-11-2025 M. tuberculosis tuberculin stim IFN-g Ql (Bld) Negative Normal [facility] Comment on above: Order Comment: Speci men Type: BLOOD SPECIMENOrdering Facility: [facility] Address: [address] [place] [address] Performed By: #### I NFTBP ####[facility] LABCLIA [id number] [place] [address] [place] MITOGEN MINUS NIL >9.97 Normal >=0.50 [facility] Comment on above: Order Comment: Speci men Type: BLOOD SPECIMENOrdering Facility: [facility] Address: [address] [place] [address] Performed By: #### I NFTBP ####[facility] LABCLIA [id number] [place] [address] [place] TB GAMMA INTERPRETATION Normal [facility] Comment on above: Order Comment: Speci men Type: BLOOD SPECIMENOrdering Facility: [facility] Address: [address] [place] [address] Performed By: #### I NFTBP ####[facility] LABCLIA [id number] [address] [place] TB NIL 0.03 IU/mL Normal <=8.00 [facility] Comment on above: Order Comment: Speci men Type: BLOOD SPECIMENOrdering Facility: [facility] Address: [address] [place] [address] Performed By: #### I NFTBP ####[facility] LABCLIA [id number] [address] [place] TB1 AG MINUS NIL 0.01 IU/mL Normal <0.35 [facility] Comment on above: Order Comment: Speci men Type: BLOOD SPECIMENOrdering Facility: [facility] Address: [address] [place] [address] Performed By: #### I NFTBP ####[facility] LABCLIA [id number] [address] TB2 AG MINUS NIL 0.01 IU/mL Normal <0.35 [facility] Comment on above: Order Comment: Speci men Type: BLOOD SPECIMENOrdering Facility: [facility] Address: [address] [place] [address] Performed By: #### I NFTBP ####[facility] LABCLIA [id number] [place] [address] [place] CBC panel Auto (Bld)on 01-11 Erythrocyte distribution width (RBC) [Ratio] 14.5 % 11.5 - 15.0 % [facility] Hematocrit (Bld) [Volume fraction] 41.5 % 36.0 - 46.0 % [facility] Hemoglobin (Bld) [Mass/Vol] 13.8 g/dL 11.5 - 15.5 g/dL [facility] Interpretation and review of laboratory results Abnormal [facility] MCH (RBC) [Entitic mass] 32.2 pg 26.0 - 34.0 pg [facility] MCHC (RBC) [Mass/Vol] 33.3 g/dL 30.5 - 36.0 g/dL [facility] MCV (RBC) [Entitic vol] 96.7 fL 80.0 - 100.0 fL [facility] Nucleated RBC (Bld) [#/Vol] NINF [facility] Platelet mean volume (Bld) [Entitic vol] 10.6 fL 9.0 - 12.7 fL [facility] Platelets (Bld) [#/Vol] 265 10*3/uL [facility] RBC (Bld) [#/Vol] 4.29 10*6/uL 3.90 - 5.2 0 m/uL [facility] WBC (Bld) [#/Vol] 12.61 10*3/uL [facility] Erythrocyte distribution width (RBC) [Ratio] 14.5 % Normal 11.5-15.0 [facility] Comment on above: Order Comment: Speci men Type: BLOOD SPECIMENOrdering Facility: [facility] Address: [address] [place] [address] Performed By: #### 5 8410-2 ####[facility] LABCLIA [id number] [place] [address] Hematocrit (Bld) [Volume fraction] 41.5 % Normal 36.0-46.0 [facility] Comment on above: Order Comment: Speci men Type: BLOOD SPECIMENOrdering Facility: [facility] Address: [address] [place] [address] Performed By: #### 5 8410-2 ####[facility] LABCLIA [id number] [place] [address] Hemoglobin (Bld) [Mass/Vol] 13.8 g/dL Normal 11.5-15.5 [facility] Comment on above: Order Comment: Speci men Type: BLOOD SPECIMENOrdering Facility: [facility] Address: [address] [place] [address] Performed By: #### 5 8410-2 ####[facility] LABCLIA [id number] [place] [address] MCH (RBC) [Entitic mass] 32.2 pg Normal 26.0-34.0 [facility] Comment on above: Order Comment: Speci men Type: BLOOD SPECIMENOrdering Facility: [facility] Address: [address] [place] [address] Performed By: #### 5 8410-2 ####[facility] LABCLIA [id number] [place] [address] MCHC (RBC) [Mass/Vol] 33.3 g/dL Normal 30.5-36.0 [facility] Comment on above: Order Comment: Speci men Type: BLOOD SPECIMENOrdering Facility: [facility] Address: [address] [place] [address] Performed By: #### 5 8410-2 ####[facility] LABCLIA [id number] [place] [address] MCV (RBC) [Entitic vol] 96.7 fL Normal 80.0-100.0 [facility] Comment on above: Order Comment: Speci men Type: BLOOD SPECIMENOrdering Facility: [facility] Address: [address] [place] [address] Performed By: #### 5 8410-2 ####[facility] LABIA [id number] [place] [address] Nucleated RBC (Bld) [#/Vol] 10*3/uL Normal <0.01 [facility] Comment on above: Order Comment: Speci men Type: BLOOD SPECIMENOrdering Facility: [facility] Address: [address] [place] [address] Performed By: #### 5 8410-2 ####[facility] LABIA [id number] [place] [address] Platelet mean volume (Bld) [Entitic vol] 10.6 fL Normal 9.0-12.7 [facility] Comment on above: Order Comment: Speci men Type: BLOOD SPECIMENOrdering Facility: [facility] Address: [address] [place] [address] Performed By: #### 5 8410-2 ####[facility] LABIA [id number] [place] [address] Platelets (Bld) [#/Vol] 265 10*3/uL Normal 150-400 [facility] Comment on above: Order Comment: Speci men Type: BLOOD SPECIMENOrdering Facility: [facility] Address: [address] [place] [address] Performed By: #### 5 8410-2 ####[facility] LABCLIA [id number] [place] [address] RBC (Bld) [#/Vol] 4.29 10*6/uL Normal 3.90-5.20 [facility] Comment on above: Order Comment: Speci men Type: BLOOD SPECIMENOrdering Facility: [facility] Address: [address] [place] [address] Performed By: #### 5 8410-2 ####[facility] LABCLIA [id number] [place] [address] WBC (Bld) [#/Vol] 12.61 10*3/uL High 3.70-11.00 [facility] Comment on above: Order Comment: Speci men Type: BLOOD SPECIMENOrdering Facility: [facility] Address: [address] [place] [address] Performed By: #### 5 8410-2 ####[facility] LABCLIA [id number] [place] [address] CRP [facility]20[facility] CRP [Mass/Vol] mg/L Normal <0.9 [facility] Comment on above: Order Comment: Speci men Type: BLOOD SPECIMENOrdering Facility: [facility] Address: [address] [place] [address] Performed By: #### 1 988-5, 2132-9 ####[facility] LABCLIA [id number] [place] [id number] [facility] Comprehensive metabolic 2000 panelOrdered By: Josse Merlos on 01-11-2025 Albumin [Mass/Vol] 3.9 g/dL 3.9 - 4.9 g/dL [facility] ALP [Catalytic activity/Vol] 83 U/L 34 - 123 U/L [facility] ALT [Catalytic activity/Vol] 42 U/L High 7 - 38 U/L [facility] Anion gap [Moles/Vol] 10 mmol/L 8 - 15 mmol/L [facility] AST [Catalytic activity/Vol] 22 U/L 13 - 35 U/L [facility] Bilirubin [Mass/Vol] 0.2 mg/dL 0.2 - 1 .3 mg/dL [facility] Calcium [Mass/Vol] 9.7 mg/dL 8.5 - 10. 2 mg/dL [facility] Chloride [Moles/Vol] 103 mmol/L 98 - 10 7 mmol/L [facility] CO2 [Moles/Vol] 23 mmol/L 22 - 30 mmol/L [facility] Creatinine [Mass/Vol] 0.50 mg/dL Low 0.58 - 0.96 mg/dL [facility] GFR/1.73 sq M.predicted among non-blacks MDRD (S/P/Bld) [Vol rate/Area] 119 mL/min/{1.73_m2} - PINF [facility] Comment on above: Estimated Glomerular Filtration [...] 221 mg/dL High 74 - 99 mg/dL [facility] Comment on above: The [place] Diabete s Association (ADA) provides guidance for [...] Standards of Medical Care in Diabetes 2016, [place] [employer]. Diabetes Care. 2016.39(Suppl 1). Interpretation and review of laboratory results Abnormal [facility] Potassium [Moles/Vol] 4.1 mmol/L 3.7 - 5.1 mmol/L [facility] Protein [Mass/Vol] 6.8 g/dL 6.3 - 8.0 g/dL [facility] Sodium [Moles/Vol] 136 mmol/L 136 - 144 mmol/L [facility] Urea nitrogen [Mass/Vol] 15 mg/dL 7 - 21 mg/dL [facility] Comprehensive metabolic 2000 panelon 01-11-2025 Albumin [Mass/Vol] 3.9 g/dL Normal 3.9-4.9 [facility] Comment on above: Order Comment: Speci men Type: BLOOD SPECIMENOrdering Facility: [facility] Address: [address] [place] [address] Performed By: #### 2 4323-8 ####[facility] LABCLIA [id number] [place] [address] ALP [Catalytic activity/Vol] 83 U/L Normal 34-123 [facility] Comment on above: Order Comment: Speci men Type: BLOOD SPECIMENOrdering Facility: [facility] Address: [address] [place] [address] Performed By: #### 2 4323-8 ####[facility] LABCLIA [id number] [place] [address] ALT [Catalytic activity/Vol] 42 U/L High 7-38 [facility] Comment on above: Order Comment: Speci men Type: BLOOD SPECIMENOrdering Facility: [facility] Address: [address] [place] [address] Performed By: #### 2 4323-8 ####[facility] LABCLIA [id number] [place] [address] Anion gap [Moles/Vol] 10 mmol/L Normal 8-15 [facility] Comment on above: Order Comment: Speci men Type: BLOOD SPECIMENOrdering Facility: [facility] Address: [address] [place] [address] Performed By: #### 2 4323-8 ####[facility] LABCLIA [id number] [place] [address] AST [Catalytic activity/Vol] 22 U/L Normal 13-35 [facility] Comment on above: Order Comment: Speci men Type: BLOOD SPECIMENOrdering Facility: [facility] Address: [address] [place] [address] Performed By: #### 2 4323-8 ####[facility] LABCLIA [id number] [place] [address] Bilirubin [Mass/Vol] 0.2 mg/dL Normal 0.2-1.3 [facility] Comment on above: Order Comment: Speci men Type: BLOOD SPECIMENOrdering Facility: [facility] Address: [address] [place] [address] Performed By: #### 2 4323-8 ####[facility] LABCLIA [id number] [place] [address] Calcium [Mass/Vol] 9.7 mg/dL Normal 8.5-10.2 [facility] Comment on above: Order Comment: Speci men Type: BLOOD SPECIMENOrdering Facility: [facility] Address: [address] [place] [address] Performed By: #### 2 4323-8 ####[facility] LABCLIA [id number] [place] [address] Chloride [Moles/Vol] 103 mmol/L Normal 98-107 [facility] Comment on above: Order Comment: Speci men Type: BLOOD SPECIMENOrdering Facility: [facility] Address: [address] [place] [address] Performed By: #### 2 4323-8 ####[facility] LABCLIA [id number] [place] [address] CO2 [Moles/Vol] 23 mmol/L Normal 22-30 [facility] Comment on above: Order Comment: Speci men Type: BLOOD SPECIMENOrdering Facility: [facility] Address: [address] [place] [address] Performed By: #### 2 4323-8 ####[facility] LABCLIA [id number] [place] [address] Creatinine [Mass/Vol] 0.50 mg/dL Low 0.58-0.96 [facility] Comment on above: Order Comment: Semaj cortés Type: BLOOD SPECIMENOrdering Facility: [facility] Address: [address] [place] [address] Performed By: #### 2 4323-8 ####[facility] LABCLIA [id number] [place] [address] eGFRcr SerPlBld CKD-EPI 2020 119 mL/min/1.73m??? Normal >=60 [facility] Comment on above: Order Comment: Semaj cortés Type: BLOOD SPECIMENOrdering Facility: [facility] Address: [address] [place] [address] Result Comment: Erin mated Glomerular Filtration Rate [...] actual GFR. Performed By: #### 2 4323-8 ####[facility] LABCLIA [id number] [place] [address] Glucose [Mass/Vol] 221 mg/dL High 74-99 [facility] Comment on above: Order Comment: Semaj cortés Type: BLOOD SPECIMENOrdering Facility: [facility] Address: [address] [place] [address] Result Comment: The [place] Diabetes Association (ADA) provides guidance for cutoff [...] Standards of Medical Care in Diabetes 2016, [place] [employer]. Diabetes Care. 2016.39(Suppl 1). Performed By: #### 2 4323-8 ####[facility] LABCLIA [id number] [place] [address] Potassium [Moles/Vol] 4.1 mmol/L Normal 3.7-5.1 [facility] Comment on above: Order Comment: Speci men Type: BLOOD SPECIMENOrdering Facility: [facility] Address: [address] [place] [address] Performed By: #### 2 4323-8 ####[facility] LABIA [id number] [place] [address] Protein [Mass/Vol] 6.8 g/dL Normal 6.3-8.0 [facility] Comment on above: Order Comment: Speci men Type: BLOOD SPECIMENOrdering Facility: [facility] Address: [address] [place] [address] Performed By: #### 2 4323-8 ####[facility] LABCLIA [id number] [place] [address] Sodium [Moles/Vol] 136 mmol/L Normal 136-144 [facility] Comment on above: Order Comment: Speci men Type: BLOOD SPECIMENOrdering Facility: [facility] Address: [address] [place] [address] Performed By: #### 2 4323-8 ####[facility]CLIA [id number] [place] [address] Urea nitrogen [Mass/Vol] 15 mg/dL Normal 7-21 [facility] Comment on above: Order Comment: Speci men Type: BLOOD SPECIMENOrdering Facility: [facility] Address: [address] [place] [address] Performed By: #### 2 4323-8 ####[facility] LABCLIA [id number] [place] [address] ESR Westergren method (Bld) [Velocity]on 01-11-2025 ESR (Bld) [Velocity] 34 mm/h High 0-20 [facility] Comment on above: Order Comment: Speci men Type: BLOOD SPECIMENOrdering Facility: [facility] Address: [address] [place] [address] Performed By: #### 4 537-7 ####[facility] LABCLIA [id number] [place] [address] [place] HBV core Ab Ser Qlon 025 HBV core Ab Ql (S) Negative Normal Negative [facility] Comment on above: Order Comment: Speci men Type: BLOOD SPECIMENOrdering Facility: [facility] Address: [address] [place] [address] Result Comment: No e vidence of current or past infection with Hepatitis B virus. Should recent infection be suspected, repeat testing may be considered 3-4 weeks after this draw. Performed By: #### 5 195-3, 61324-6, 97039-4 ####[facility] LABCLIA [id number] [address] OF [facility] HBV surface Ab Ql (S)on 12-23 HBV surface Ab Qn (S) 177.77 mIU/mL Normal [facility] Comment on above: Order Comment: Speci men Type: BLOOD SPECIMENOrdering Facility: [facility] Address: [address] [place] [address] Result Comment: <8 m IU/mL: No serological evidence of immunity to Hepatitis B Virus.>/= 8 to <12 mIU/mL: No serological evidence of immunity to Hepatitis B Virus.>/= 12 mIU/mL: Consistent with serological evidence of immunity to Hepatitis B Virus. Performed By: #### 5 195-3, 21070-5, 47879-9 ####[facility] LABCLIA [id number] [place] [id number] [place] HBV surface Ab Ser Qlon 12-23 HBV surface Ab Ql (S) Positive Normal [facility] Comment on above: Order Comment: Speci men Type: BLOOD SPECIMENOrdering Facility: [facility] Address: [address] [place] [address] Result Comment: Cons istent with serological evidence of immunity to Hepatitis B Virus. Performed By: #### 5 195-3, 89626-9, 84480-8 ####[facility] LABCLIA [id number] [place] [address] [place] HBV surface Ag Ser Qlon 12-23 HBV surface Ag Ql (S) Negative Normal Negative [facility] Comment on above: Order Comment: Speci men Type: BLOOD SPECIMENOrdering Facility: [facility] Address: [address] [place] [address] Performed By: #### 5 195-3, 69032-1, 79817-9 ####[facility] LABCLIA [id number] [place] [address] [place] HCV Ab Ser Qlon 01-11-2025 HCV Ab Ql (S) Negative Normal Negative [facility] Comment on above: Order Comment: Speci men Type: BLOOD SPECIMENOrdering Facility: [facility] Address: [address] [place] [address] Result Comment: The result suggests no evidence of infection with Hepatitis C virus. Should recent infection be suspected, repeat testing may be considered 4-6 weeks after this draw. Performed By: #### 1 6128-1 ####[facility] LABIA [id number] [place] [address] [place] Vit B12 SerPl-mCncon 025 Cobalamin (Vitamin B12) [Mass/Vol] 710 pg/mL Normal 232-1245 [facility] Comment on above: Order Comment: Speci men Type: BLOOD SPECIMENOrdering Facility: [facility] Address: [address] [place] [address] Performed By: #### 1 988-5, 2132-9 ####[facility] LABCLIA [id number] [place] [id number] [place] CBC W Auto Differential pane l (Bld)on 11-29-2024 Basophils (Bld) [#/Vol] 0.09 10*3/uL Normal <0.11 [facility] Comment on above: Order Comment: Speci men Type: BLOOD SPECIMENOrdering Facility: [facility] Address: [address] [place] [address] Performed By: #### 5 7021-8 ####[facility] LABCLIA [id number] [place] [address] Basophils/100 WBC (Bld) 0.7 % Normal [facility] Comment on above: Order Comment: Speci men Type: BLOOD SPECIMENOrdering Facility: [facility] Address: [address] [place] [address] Performed By: #### 5 7021-8 ####[facility] LABCLIA [id number] [place] [address] Differential cell count method Nom (Bld) Auto Normal [facility] Comment on above: Order Comment: Speci men Type: BLOOD SPECIMENOrdering Facility: [facility] Address: [address] [place] [address] Performed By: #### 5 7021-8 ####[facility] LABCLIA [id number] [place] [address] Eosinophils (Bld) [#/Vol] 0.09 10*3/uL Normal <0.46 [facility] Comment on above: Order Comment: Speci men Type: BLOOD SPECIMENOrdering Facility: [facility] Address: [address] [place] [address] Performed By: #### 5 7021-8 ####[facility] LABCLIA [id number] [place] [address] Eosinophils/100 WBC (Bld) 0.7 % Normal [facility] Comment on above: Order Comment: Speci men Type: BLOOD SPECIMENOrdering Facility: [facility] Address: [address] [place] [address] Performed By: #### 5 7021-8 ####[facility] LABCLIA [id number] [place] [address] Erythrocyte distribution width (RBC) [Ratio] 14.8 % Normal 11.5-15.0 [facility] Comment on above: Order Comment: Speci men Type: BLOOD SPECIMENOrdering Facility: [facility] Address: [address] [place] [address] Performed By: #### 5 7021-8 ####[facility] LABCLIA [id number] [place] [address] Hematocrit (Bld) [Volume fraction] 42.9 % Normal 36.0-46.0 [facility] Comment on above: Order Comment: Speci men Type: BLOOD SPECIMENOrdering Facility: [facility] Address: [address] [place] [address] Performed By: #### 5 7021-8 ####[facility] LABCLIA [id number] [place] [address] Hemoglobin (Bld) [Mass/Vol] 14.0 g/dL Normal 11.5-15.5 [facility] Comment on above: Order Comment: Speci men Type: BLOOD SPECIMENOrdering Facility: [facility] Address: [address] [place] [address] Performed By: #### 5 7021-8 ####[facility] LABCLIA [id number] [place] [address] Immature granulocytes (Bld) [#/Vol] 0.18 10*3/uL High <0.10 [facility] Comment on above: Order Comment: Speci men Type: BLOOD SPECIMENOrdering Facility: [facility] Address: [address] [place] [address] Performed By: #### 5 7021-8 ####[facility] LABCLIA [id number] [place] [address] Immature granulocytes/100 WBC (Bld) 1.5 % Normal [facility] Comment on above: Order Comment: Speci men Type: BLOOD SPECIMENOrdering Facility: [facility] Address: [address] [place] [address] Performed By: #### 5 7021-8 ####[facility] LABCLIA [id number] [place] [address] Lymphocytes (Bld) [#/Vol] 1.99 10*3/uL Normal 1.00-4.00 [facility] Comment on above: Order Comment: Speci men Type: BLOOD SPECIMENOrdering Facility: [facility] Address: [address] [place] [address] Performed By: #### 5 7021-8 ####[facility] LABIA [id number] [place] [address] Lymphocytes/100 WBC (Bld) 16.4 % Normal [facility] Comment on above: Order Comment: Speci men Type: BLOOD SPECIMENOrdering Facility: [facility] Address: [address] [place] [address] Performed By: #### 5 7021-8 ####[facility] LABCLIA [id number] [place] [address] MCH (RBC) [Entitic mass] 31.7 pg Normal 26.0-34.0 [facility] Comment on above: Order Comment: Speci men Type: BLOOD SPECIMENOrdering Facility: [facility] Address: [address] [place] [address] Performed By: #### 5 7021-8 ####[facility] LABIA [id number] [place] [address] MCHC (RBC) [Mass/Vol] 32.6 g/dL Normal 30.5-36.0 [facility] Comment on above: Order Comment: Speci men Type: BLOOD SPECIMENOrdering Facility: [facility] Address: [address] [place] [address] Performed By: #### 5 7021-8 ####[facility] LABCLIA [id number] [place] [address] MCV (RBC) [Entitic vol] 97.1 fL Normal 80.0-100.0 [facility] Comment on above: Order Comment: Speci men Type: BLOOD SPECIMENOrdering Facility: [facility] Address: [address] [place] [address] Performed By: #### 5 7021-8 ####[facility] LABCLIA [id number] [place] [address] Monocytes (Bld) [#/Vol] 0.67 10*3/uL Normal <0.87 [facility] Comment on above: Order Comment: Speci men Type: BLOOD SPECIMENOrdering Facility: [facility] Address: [address] [place] [address] Performed By: #### 5 7021-8 ####[facility] LABCLIA [id number] [place] [address] Monocytes/100 WBC (Bld) 5.5 % Normal [facility] Comment on above: Order Comment: Speci men Type: BLOOD SPECIMENOrdering Facility: [facility] Address: [address] [place] [address] Performed By: #### 5 7021-8 ####[facility] LABCLIA [id number] [place] [address] Neutrophils (Bld) [#/Vol] 9.15 10*3/uL High 1.45-7.50 [facility] Comment on above: Order Comment: Speci men Type: BLOOD SPECIMENOrdering Facility: [facility] Address: [address] [place] [address] Performed By: #### 5 7021-8 ####[facility] LABCLIA [id number] [place] [address] Neutrophils/100 WBC (Bld) 75.2 % Normal [facility] Comment on above: Order Comment: Speci men Type: BLOOD SPECIMENOrdering Facility: [facility] Address: [address] [place] [address] Performed By: #### 5 7021-8 ####[facility] LABCLIA [id number] [place] [address] Nucleated RBC (Bld) [#/Vol] 10*3/uL Normal <0.01 [facility] Comment on above: Order Comment: Speci men Type: BLOOD SPECIMENOrdering Facility: [facility] Address: [address] [place] [address] Performed By: #### 5 7021-8 ####[facility] LABCLIA [id number] [place] [address] Nucleated RBC/100 WBC (Bld) [Ratio] 0.0 /100 WBC Normal [facility] Comment on above: Order Comment: Speci men Type: BLOOD SPECIMENOrdering Facility: [facility] Address: [address] [place] [address] Performed By: #### 5 7021-8 ####[facility] LABCLIA [id number] [place] [address] Platelet mean volume (Bld) [Entitic vol] 9.7 fL Normal 9.0-12.7 [facility] Comment on above: Order Comment: Speci men Type: BLOOD SPECIMENOrdering Facility: [facility] Address: [address] [place] [address] Performed By: #### 5 7021-8 ####[facility] LABCLIA [id number] [place] [address] Platelets (Bld) [#/Vol] 281 10*3/uL Normal 150-400 [facility] Comment on above: Order Comment: Speci men Type: BLOOD SPECIMENOrdering Facility: [facility] Address: [address] [place] [address] Performed By: #### 5 7021-8 ####[facility] LABCLIA [id number] [place] [address] RBC (Bld) [#/Vol] 4.42 10*6/uL Normal 3.90-5.20 [facility] Comment on above: Order Comment: Speci men Type: BLOOD SPECIMENOrdering Facility: [facility] Address: [address] [place] [address] Performed By: #### 5 7021-8 ####[facility] LABCLIA [id number] [place] [address] WBC (Bld) [#/Vol] 12.17 10*3/uL High 3.70-11.00 [facility] Comment on above: Order Comment: Speci men Type: BLOOD SPECIMENOrdering Facility: [facility] Address: [address] [place] [address] Performed By: #### 5 7021-8 ####[facility] LABIA [id number] [place] [address] CNOVSPon 11-29-2024 CNOVSP Normal [facility] Comprehensive metabolic 2000 panelon 11-29-2024 Albumin [Mass/Vol] 4.1 g/dL Normal 3.9-4.9 [facility] Comment on above: Order Comment: Speci men Type: BLOOD SPECIMENOrdering Facility: [facility] Address: [address] [place] [address] Performed By: #### 2 4323-8 ####[facility] LABCLIA [id number] [place] [address] ALP [Catalytic activity/Vol] 61 U/L Normal 34-123 [facility] Comment on above: Order Comment: Speci men Type: BLOOD SPECIMENOrdering Facility: [facility] Address: [address] [place] [address] Performed By: #### 2 4323-8 ####[facility] LABCLIA [id number] [place] [address] ALT [Catalytic activity/Vol] 39 U/L High 7-38 [facility] Comment on above: Order Comment: Speci men Type: BLOOD SPECIMENOrdering Facility: [facility] Address: [address] [place] [address] Performed By: #### 2 4323-8 ####[facility] LABCLIA [id number] [place] [address] Anion gap [Moles/Vol] 13 mmol/L Normal 8-15 [facility] Comment on above: Order Comment: Speci men Type: BLOOD SPECIMENOrdering Facility: [facility] Address: [address] [place] [address] Performed By: #### 2 4323-8 ####[facility] LABCLIA [id number] [place] [address] AST [Catalytic activity/Vol] 16 U/L Normal 13-35 [facility] Comment on above: Order Comment: Speci men Type: BLOOD SPECIMENOrdering Facility: [facility] Address: [address] [place] [address] Performed By: #### 2 4323-8 ####[facility] LABCLIA [id number] [place] [address] Bilirubin [Mass/Vol] 0.2 mg/dL Normal 0.2-1.3 [facility] Comment on above: Order Comment: Speci men Type: BLOOD SPECIMENOrdering Facility: [facility] Address: [address] [place] [address] Performed By: #### 2 4323-8 ####[facility] LABCLIA [id number] [place] [address] Calcium [Mass/Vol] 9.7 mg/dL Normal 8.5-10.2 [facility] Comment on above: Order Comment: Speci men Type: BLOOD SPECIMENOrdering Facility: [facility] Address: [address] [place] [address] Performed By: #### 2 4323-8 ####[facility] LABCLIA [id number] [place] [address] Chloride [Moles/Vol] 102 mmol/L Normal 98-107 [facility] Comment on above: Order Comment: Speci men Type: BLOOD SPECIMENOrdering Facility: [facility] Address: [address] [place] [address] Performed By: #### 2 4323-8 ####[facility] LABCLIA [id number] [place] [address] CO2 [Moles/Vol] 23 mmol/L Normal 22-30 [facility] Comment on above: Order Comment: Speci men Type: BLOOD SPECIMENOrdering Facility: [facility] Address: [address] [place] [address] Performed By: #### 2 4323-8 ####[facility] LABCLIA [id number] [place] [address] Creatinine [Mass/Vol] 0.58 mg/dL Normal 0.58-0.96 [facility] Comment on above: Order Comment: Speci men Type: BLOOD SPECIMENOrdering Facility: [facility] Address: [address] [place] [address] Performed By: #### 2 4323-8 ####[facility] LABCLIA [id number] [place] [address] Creatinine and Glomerular filtration rate.predicted panel (S/P/Bld) 115 mL/min/1.73m??? Normal >=60 [facility] Comment on above: Order Comment: Speci men Type: BLOOD SPECIMENOrdering Facility: [facility] Address: [address] [place] [address] Result Comment: Erin mated Glomerular Filtration Rate [...] actual GFR. Performed By: #### 2 4323-8 ####[facility] LABIA [id number] [place] [address] Glucose [Mass/Vol] 233 mg/dL High 74-99 [facility] Comment on above: Order Comment: Speci men Type: BLOOD SPECIMENOrdering Facility: [facility] Address: [address] [place], [place] [address] Result Comment: The [place] [employer] (ADA) provides guidance for cutoff [...] Standards of Medical Care in Diabetes 2016, [place] [employer]. Diabetes Care. 2016.39(Suppl 1). Performed By: #### 2 4323-8 ####[facility] LABCLIA [id number] [place] [address] Potassium [Moles/Vol] 4.0 mmol/L Normal 3.7-5.1 [facility] Comment on above: Order Comment: Speci men Type: BLOOD SPECIMENOrdering Facility: [facility] Address: [address] [place] [address] Performed By: #### 2 4323-8 ####[facility] LABCLIA [id number] [place] [address] Protein [Mass/Vol] 7.0 g/dL Normal 6.3-8.0 [facility] Comment on above: Order Comment: Semaj men Type: BLOOD SPECIMENOrdering Facility: [facility] Address: [address] [place] [address] Performed By: #### 2 4323-8 ####[facility] LABCLIA [id number] [place] [address] Sodium [Moles/Vol] 138 mmol/L Normal 136-144 [facility] Comment on above: Order Comment: Speci men Type: BLOOD SPECIMENOrdering Facility: [facility] Address: [address] [place] [address] Performed By: #### 2 4323-8 ####[facility] LABCLIA [id number] [place] [address] Urea nitrogen [Mass/Vol] 16 mg/dL Normal 7-21 [facility] Comment on above: Order Comment: Speci men Type: BLOOD SPECIMENOrdering Facility: [facility] Address: [address] [place] [address] Performed By: #### 2 4323-8 ####[facility] LABCLIA [id number] [place] [address] Ferritin SerPl-mCncon 2024 Ferritin [Mass/Vol] 63.6 ng/mL Normal 14.7-205.1 [facility] Comment on above: Order Comment: Speci men Type: BLOOD SPECIMENOrdering Facility: [facility] Address: [address] [place] [address] Performed By: #### 2 284-8, 92309-4, 2276-4, 2132-9 ####[facility] LABCLIA [id number] [place] [address] [place] Folate SerPl-mCncon 11-30-19 25 Folate [Mass/Vol] ng/mL Normal >4.7 [facility] Comment on above: Order Comment: Speci men Type: BLOOD SPECIMENOrdering Facility: [facility] Address: [address] [place] [address] Result Comment: A re sult of > 20 ng/mL is not necessarily indicative of a pathologic or treatable condition: it reflects a limitation of the test methodology.Assay reference range: 4.8 to 24.2 ng/mL. Suitable for detection of folate deficiency.Reference:Folate III (Folate III) [package insert V 1.0 American]. [facility], [place], [place]: March 2015. Performed By: #### 2 284-8, 89855-7, 2276-4, 2132-9 ####[facility] LABCLIA [id number] [place] [address] [place] IMMUNOGLOBULINS,IGG,IGA,IGMo n 11-29-2024 IgA [Mass/Vol] 169 mg/dL Normal 70-400 [facility] Comment on above: Order Comment: Speci men Type: BLOOD SPECIMENOrdering Facility: [facility] Address: [address] [place] [address] Performed By: #### S ERIMM ####[facility] LABCLIA [id number] [place] [address] [place] IgG [Mass/Vol] 596 mg/dL Low 700-1600 [facility] Comment on above: Order Comment: Speci men Type: BLOOD SPECIMENOrdering Facility: [facility] Address: [address] [place] [address] Performed By: #### S ERIMM ####[facility] LABCLIA [id number] [place] [address] [place] IgM [Mass/Vol] 410 mg/dL High 40-230 [facility] Comment on above: Order Comment: Speci men Type: BLOOD SPECIMENOrdering Facility: [facility] Address: [address] [place] [address] Performed By: #### S ERIMM ####[facility] LABCLIA [id number] [place] [address] [place] Iron and Iron binding capaci ty panelon 11-29-2024 Iron [Mass/Vol] 154 ug/dL Normal 41-186 [facility] Comment on above: Order Comment: Speci men Type: BLOOD SPECIMENOrdering Facility: [facility] Address: [address] [place] [address] Performed By: #### 2 284-8, 26798-2, 6-4, 9 ####[facility] LABIA [id number] [address] [address] [place] Iron binding capacity [Mass/Vol] 363 ug/dL Normal 232-386 [facility] Comment on above: Order Comment: Speci men Type: BLOOD SPECIMENOrdering Facility: [facility] Address: [address] [place], [place] [address] Performed By: #### 2 284-8, 97399-4, 2275-4, 2132-01 ####[facility] [id number] [address] [address] [place] Iron/TIBC [Molar ratio] 42.4 % Normal 15.0-57.0 [facility] Comment on above: Order Comment: Speci men Type: BLOOD SPECIMENOrdering Facility: [facility] Address: [address] [place] [address] Performed By: #### 2 284-8, 31908-1, 6-4, 2132-01 ####[facility] [id number] [address] [address] [place] Vit B12 SerPl-mCncon 09-2 025 Cobalamin (Vitamin B12) [Mass/Vol] 775 pg/mL Normal 232-1245 [facility] Comment on above: Order Comment: Speci men Type: BLOOD SPECIMENOrdering Facility: [facility] Address: [address] [place], [place] [address] Performed By: #### 2 284-8, 68224-9, 2275-4, 9 ####[facility] LABIA [id number] [address] [address] [place] CNPNon 11-20-2024 CNPN Normal [facility] CNPNon 11-15-2024 CNPN Normal [facility] CNPNon 10-06-2024 CNPN Normal [facility] 25(OH)D3 SerPl-mCncon 2024 25-hydroxyvitamin D3 [Mass/Vol] 30.9 ng/mL Low 31.0-80.0 [facility] Comment on above: Order Comment: Speci men Type: BLOOD SPECIMENOrdering Facility: [facility] Address: [address] [place] [address] Result Comment: Clas sification of 25 [place] Vitamin D status:Deficiency/Insufficiency: < or = 30 ng/ml.Sufficiency/Optimal Levels: 31-80 ng/mLToxicity: > 100 ng/mL.Test performed by chemiluminescent immunoassay. Performed By: #### 1 989-3 ####[facility] LABCLIA [id number] [place] [address] [place] 25-hydroxyvitamin D3 [Mass/V ol]on 10-02-2024 Interpretation and review of laboratory results Abnormal [facility] The reference range interval was based on an analysis of samples from healthy adults and may not pertain to children from 0-18 years old. [facility] C-REACTIVE PROTEINon 025 CRP [Mass/Vol] mg/dL NINF - 0.9 mg/dL [facility] CBC panel Auto (Bld)on 10-02 Erythrocyte distribution width (RBC) [Ratio] 16.2 % High 11.5 - 15.0 % [facility] Hematocrit (Bld) [Volume fraction] 41.3 % 36.0 - 46.0 % [facility] Hemoglobin (Bld) [Mass/Vol] 13.7 g/dL 11.5 - 15.5 g/dL [facility] Interpretation and review of laboratory results Abnormal [facility] MCH (RBC) [Entitic mass] 31.1 pg 26.0 - 34.0 pg [facility] MCHC (RBC) [Mass/Vol] 33.2 g/dL 30.5 - 36.0 g/dL [facility] MCV (RBC) [Entitic vol] 93.7 fL 80.0 - 100.0 fL [facility] Nucleated RBC (Bld) [#/Vol] NINF [facility] Platelet mean volume (Bld) [Entitic vol] 10.1 fL 9.0 - 12.7 fL [facility] Platelets (Bld) [#/Vol] 265 10*3/uL [facility] RBC (Bld) [#/Vol] 4.41 10*6/uL 3.90 - 5.2 0 m/uL [facility] WBC (Bld) [#/Vol] 10.07 10*3/uL [facility] Erythrocyte distribution width (RBC) [Ratio] 16.2 % High 11.5-15.0 [facility] Comment on above: Order Comment: Speci men Type: BLOOD SPECIMENOrdering Facility: [facility] Address: [address] [place] [address] Performed By: #### 5 8410-2 ####[facility] LABCLIA [id number] [place] [address] Hematocrit (Bld) [Volume fraction] 41.3 % Normal 36.0-46.0 [facility] Comment on above: Order Comment: Speci men Type: BLOOD SPECIMENOrdering Facility: [facility] Address: [address] [place] [address] Performed By: #### 5 8410-2 ####[facility] LABCLIA [id number] [place] [address] Hemoglobin (Bld) [Mass/Vol] 13.7 g/dL Normal 11.5-15.5 [facility] Comment on above: Order Comment: Speci men Type: BLOOD SPECIMENOrdering Facility: [facility] Address: [address] [place] [address] Performed By: #### 5 8410-2 ####[facility] LABCLIA [id number] [place] [address] MCH (RBC) [Entitic mass] 31.1 pg Normal 26.0-34.0 [facility] Comment on above: Order Comment: Speci men Type: BLOOD SPECIMENOrdering Facility: [facility] Address: [address] [place] [address] Performed By: #### 5 8410-2 ####[facility] LABCLIA [id number] [place] [address] MCHC (RBC) [Mass/Vol] 33.2 g/dL Normal 30.5-36.0 [facility] Comment on above: Order Comment: Speci men Type: BLOOD SPECIMENOrdering Facility: [facility] Address: [address] [place] [address] Performed By: #### 5 8410-2 ####[facility] LABIA [id number] [place] [address] MCV (RBC) [Entitic vol] 93.7 fL Normal 80.0-100.0 [facility] Comment on above: Order Comment: Speci men Type: BLOOD SPECIMENOrdering Facility: [facility] Address: [address] [place] [address] Performed By: #### 5 8410-2 ####[facility] LABIA [id number] [place] [address] Nucleated RBC (Bld) [#/Vol] 10*3/uL Normal <0.01 [facility] Comment on above: Order Comment: Speci men Type: BLOOD SPECIMENOrdering Facility: [facility] Address: [address] [place] [address] Performed By: #### 5 8410-2 ####[facility] LABIA [id number] [place] [address] Platelet mean volume (Bld) [Entitic vol] 10.1 fL Normal 9.0-12.7 [facility] Comment on above: Order Comment: Speci men Type: BLOOD SPECIMENOrdering Facility: [facility] Address: [address] [place] [address] Performed By: #### 5 8410-2 ####[facility] LABIA [id number] [place] [address] Platelets (Bld) [#/Vol] 265 10*3/uL Normal 150-400 [facility] Comment on above: Order Comment: Speci men Type: BLOOD SPECIMENOrdering Facility: [facility] Address: [address] [place] [address] Performed By: #### 5 8410-2 ####[facility] LABCLIA [id number] [place] [address] RBC (Bld) [#/Vol] 4.41 10*6/uL Normal 3.90-5.20 [facility] Comment on above: Order Comment: Speci men Type: BLOOD SPECIMENOrdering Facility: [facility] Address: [address] [place] [address] Performed By: #### 5 8410-2 ####[facility] LABCL[facility] [id number] [place] [address] WBC (Bld) [#/Vol] 10.07 10*3/uL Normal 3.70-11.00 [facility] Comment on above: Order Comment: Speci men Type: BLOOD SPECIMENOrdering Facility: [facility] Address: [address] [place] [address] Performed By: #### 5 8410-2 ####[facility] LABCLIA [id number] [place] [address] CRP SerPl-ncon 10-02-2024 CRP [Mass/Vol] mg/L Normal <0.9 [facility] Comment on above: Order Comment: Speci men Type: BLOOD SPECIMENOrdering Facility: [facility] Address: [address] [place] [address] Performed By: #### 1 988-5 ####[facility] LABCLIA [id number] [place] [id number] [place] CRP [Mass/Vol]on 10-02-2024 Interpretation and review of laboratory results Normal [facility] Comprehensive metabolic 2000 panelOrdered By: Josse Merlos on 10-02-2024 Albumin [Mass/Vol] 3.9 g/dL 3.9 - 4.9 g/dL [facility] ALP [Catalytic activity/Vol] 61 U/L 34 - 123 U/L [facility] ALT [Catalytic activity/Vol] 41 U/L High 7 - 38 U/L [facility] Anion gap [Moles/Vol] 14 mmol/L 8 - 15 mmol/L [facility] AST [Catalytic activity/Vol] 18 U/L 13 - 35 U/L [facility] Bilirubin [Mass/Vol] 0.2 mg/dL 0.2 - 1 .3 mg/dL [facility] Calcium [Mass/Vol] 9.6 mg/dL 8.5 - 10. 2 mg/dL [facility] Chloride [Moles/Vol] 107 mmol/L 98 - 10 7 mmol/L [facility] CO2 [Moles/Vol] 20 mmol/L Low 22 - 30 mmol/L [facility] Creatinine [Mass/Vol] 0.59 mg/dL 0.58 - 0.96 mg/dL [facility] GFR/1.73 sq M.predicted among non-blacks MDRD (S/P/Bld) [Vol rate/Area] 115 mL/min/{1.73_m2} - PINF [facility] Comment on above: Estimated Glomerular Filtration [...] 216 mg/dL High 74 - 99 mg/dL [facility] Comment on above: The [place] Diab[employer] Association (ADA) provides guidance for [...] Standards of Medical Care in Diabetes 2016, [place] [employer]. Diabetes Care. 2016.39(Suppl 1). Interpretation and review of laboratory results Abnormal [facility] Potassium [Moles/Vol] 4.1 mmol/L 3.7 - 5.1 mmol/L [facility] Protein [Mass/Vol] 6.8 g/dL 6.3 - 8.0 g/dL [facility] Sodium [Moles/Vol] 141 mmol/L 136 - 144 mmol/L [facility] Urea nitrogen [Mass/Vol] 19 mg/dL 7 - 21 mg/dL [facility] Comprehensive metabolic 2000 panelon 10-02-2024 Albumin [Mass/Vol] 3.9 g/dL Normal 3.9-4.9 [facility] Comment on above: Order Comment: Speci men Type: BLOOD SPECIMENOrdering Facility: [facility] Address: [address] [place] [address] Performed By: #### 2 4323-8 ####[facility] LABCLIA [id number] [place] [address] ALP [Catalytic activity/Vol] 61 U/L Normal 34-123 [facility] Comment on above: Order Comment: Speci men Type: BLOOD SPECIMENOrdering Facility: [facility] Address: [address] [place] [address] Performed By: #### 2 4323-8 ####[facility] LABCLIA [id number] [place] [address] ALT [Catalytic activity/Vol] 41 U/L High 7-38 [facility] Comment on above: Order Comment: Speci men Type: BLOOD SPECIMENOrdering Facility: [facility] Address: [address] [place] [address] Performed By: #### 2 4323-8 ####[facility] LABCLIA [id number] [place] [address] Anion gap [Moles/Vol] 14 mmol/L Normal 8-15 [facility] Comment on above: Order Comment: Speci men Type: BLOOD SPECIMENOrdering Facility: [facility] Address: [address] [place] [address] Performed By: #### 2 4323-8 ####[facility] LABCLIA [id number] [place] [address] AST [Catalytic activity/Vol] 18 U/L Normal 13-35 [facility] Comment on above: Order Comment: Speci men Type: BLOOD SPECIMENOrdering Facility: [facility] Address: [address] [place] [address] Performed By: #### 2 4323-8 ####[facility] LABCLIA [id number] [place] [address] Bilirubin [Mass/Vol] 0.2 mg/dL Normal 0.2-1.3 [facility] Comment on above: Order Comment: Speci men Type: BLOOD SPECIMENOrdering Facility: [facility] Address: [address] [place] [address] Performed By: #### 2 4323-8 ####[facility] LABCLIA [id number] [place] [address] Calcium [Mass/Vol] 9.6 mg/dL Normal 8.5-10.2 [facility] Comment on above: Order Comment: Speci men Type: BLOOD SPECIMENOrdering Facility: [facility] Address: [address] [place] [address] Performed By: #### 2 4323-8 ####[facility] LABCLIA [id number] [place] [address] Chloride [Moles/Vol] 107 mmol/L Normal 98-107 [facility] Comment on above: Order Comment: Speci men Type: BLOOD SPECIMENOrdering Facility: [facility] Address: [address] [place] [address] Performed By: #### 2 4323-8 ####[facility] LABCLIA [id number] [place] [address] CO2 [Moles/Vol] 20 mmol/L Low 22-30 [facility] Comment on above: Order Comment: Speci men Type: BLOOD SPECIMENOrdering Facility: [facility] Address: [address] [place] [id number] Performed By: #### 2 4323-8 ####[facility] LABCLIA [id number] [place] [address] Creatinine [Mass/Vol] 0.59 mg/dL Normal 0.58-0.96 [facility] Comment on above: Order Comment: Speci men Type: BLOOD SPECIMENOrdering Facility: [facility] Address: [address] [place] [address] Performed By: #### 2 4323-8 ####[facility] LABCLIA [id number] [place] [address] Creatinine and Glomerular filtration rate.predicted panel (S/P/Bld) 115 mL/min/1.73m??? Normal >=60 [facility] Comment on above: Order Comment: Speci men Type: BLOOD SPECIMENOrdering Facility: [facility] Address: [address] [place] [address] Result Comment: Erin mated Glomerular Filtration Rate [...] actual GFR. Performed By: #### 2 4323-8 ####[facility] LABCLIA [id number] [place] [address] Glucose [Mass/Vol] 216 mg/dL High 74-99 [facility] Comment on above: Order Comment: Speci men Type: BLOOD SPECIMENOrdering Facility: [facility] Address: [address] [place] [place] [id number] Result Comment: The [place] Diabetes Association (ADA) provides guidance for cutoff [...] Standards of Medical Care in Diabetes 2016, [place] [employer]. Diabetes Care. 2016.39(Suppl 1). Performed By: #### 2 4323-8 ####[facility] LABCLIA [id number] [place] [address] Potassium [Moles/Vol] 4.1 mmol/L Normal 3.7-5.1 [facility] Comment on above: Order Comment: Speci men Type: BLOOD SPECIMENOrdering Facility: [facility] Address: [address] [place] [address] Performed By: #### 2 4323-8 ####[facility] LABCLIA [id number] [place] [address] Protein [Mass/Vol] 6.8 g/dL Normal 6.3-8.0 [facility] Comment on above: Order Comment: Speci men Type: BLOOD SPECIMENOrdering Facility: [facility] Address: [address] [place] [address] Performed By: #### 2 4323-8 ####[facility] LABCLIA [id number] [place] [address] Sodium [Moles/Vol] 141 mmol/L Normal 136-144 [facility] Comment on above: Order Comment: Speci men Type: BLOOD SPECIMENOrdering Facility: [facility] Address: [address] [place] [address] Performed By: #### 2 4323-8 ####[facility] LABCLIA [id number] [place] [address] Urea nitrogen [Mass/Vol] 19 mg/dL Normal 7-21 [facility] Comment on above: Order Comment: Speci men Type: BLOOD SPECIMENOrdering Facility: [facility] Address: [address] [place], [place] [address] [address] Performed By: #### 2 4323-8 ####[facility] LABCLIA [id number] [place] [address] ESR Westergren method (Bld) [Velocity]on 10-02-2024 ESR (Bld) [Velocity] 28 mm/h High [facility] Interpretation and review of laboratory results Abnormal [facility] ESR (Bld) [Velocity] 28 mm/h High 0-20 [facility] Comment on above: Order Comment: Speci men Type: BLOOD SPECIMENOrdering Facility: [facility] Address: [address] [place] [address] Performed By: #### 4 537-7 ####[facility] LABCLIA [id number] [place] [id number] [place] VITAMIN D 25 HYDROXYon 10-02 25-hydroxyvitamin D3 [Mass/Vol] 30.9 ng/mL Low 31.0 - 80.0 ng/mL [facility] Comment on above: Classification of 25 [place] Vitamin D status: Deficiency/Insufficiency: < or = 30 ng/ml. Sufficiency/Optimal Levels: 31-80 ng/mL Toxicity: > 100 ng/mL. Test performed by chemiluminescent immunoassay. DNA EXTRACTION BLOODOrdered By: Dominga Araujo on 09-20-2024 CONCENTRATION (NG/UL) 189.3 ng/ul [facility] Total Yield 94.65 ug [facility] Comment on above: Specimens will be av ailable for 3 years from date of collection. To order testing on this specimen for [facility] patients, please place an [facility] order for DNA and RNA for Clinical Testing (SQNUCADD). To order for patients outside of the [facility] system, please request DNA and RNA for Clinical Testing, order code [email or web address]. If additional paperwork is required for testing, please email completed forms to . VOLUME (UL) OF DNA 500 uL [facility] CNOVon 09-19-2024 CNOV Normal [facility] DNA EXTRACTION BLOODon 09-19 CONCENTRATION (NG/UL) 189.3 ng/ul Normal [facility] Comment on above: Order Comment: Speci men Type: BLOOD SPECIMENOrdering Facility: [facility] Address: [address] [place] [address] Performed By: #### N UCBLD ####[facility] LIMSCLIA [id number] [place] [address] [place] TOTAL YIELD 94.65 ug Normal [facility] Comment on above: Order Comment: Speci men Type: BLOOD SPECIMENOrdering Facility: [facility] Address: [address] [place] [address] Result Comment: Spec imens will be available for 3 years from date of collection. To order testing on this specimen for [facility] patients, please place an [facility] order for DNA and RNA for Clinical Testing (SQNUCADD). To order for patients outside of the [facility] system, please request DNA and RNA for Clinical Testing, order code [email or web address].If additional paperwork is required for testing, please email completed forms to . Performed By: #### N UCBLD ####[facility] LIMSCLIA [id number] [place] [address] [place] VOLUME (UL) OF DNA 500 uL Normal [facility] Comment on above: Order Comment: Speci men Type: BLOOD SPECIMENOrdering Facility: [facility] Address: [address] [place] [address] Performed By: #### N UCBLD ####[facility] LIMSCLIA [id number] [place] [address] [place] CNPNon 09-18-2024 CNPN Normal [facility] CNPNon 09-13-2024 CNPN Normal [facility] CNOVSPon 09-06-2024 CNOVSP Normal [facility] CNPNon 09-06-2024 CNPN Normal [facility] IMMUNOGLOBULINS,IGG,IGA,IGMo n 09-06-2024 IgA [Mass/Vol] 163 mg/dL Normal 70-400 [facility] Comment on above: Order Comment: Speci men Type: BLOOD SPECIMENOrdering Facility: [facility] Address: [address] [place] [address] Performed By: #### S ERIMM ####[facility] LABCLIA [id number] [place] [address] [place] IgG [Mass/Vol] 599 mg/dL Low 700-1600 [facility] Comment on above: Order Comment: Speci men Type: BLOOD SPECIMENOrdering Facility: [facility] Address: [address] [place] [address] Performed By: #### S ERIMM ####[facility] LABCLIA [id number] [place] [address] [place] IgM [Mass/Vol] 387 mg/dL High 40-230 [facility] Comment on above: Order Comment: Speci men Type: BLOOD SPECIMENOrdering Facility: [facility] Address: [address] [place] [address] Performed By: #### S ERIMM ####[facility] LABCLIA [id number] [place] [address] [place] Laboratory - Chemistry and C hemistry - challengeon 09-06-2024 IgA [Mass/Vol] 163 mg/dL 70 - 400 mg/dL [facility] IgG [Mass/Vol] 599 mg/dL Low 700 - 1600 mg/dL [facility] IgM [Mass/Vol] 387 mg/dL High 40 - 230 mg/dL [facility] No Panel Informationon 09-06 Interpretation and review of laboratory results Abnormal [facility] CBC W Auto Differential pane l (Bld)on 08-29-2024 Basophils (Bld) [#/Vol] 0.06 10*3/uL Normal <0.11 [facility] Comment on above: Order Comment: Speci men Type: BLOOD SPECIMENOrdering Facility: [facility] Address: [address] [place] [address] Performed By: #### 5 7021-8 ####[facility] LABCLIA [id number] [place] [address] Basophils/100 WBC (Bld) 0.5 % Normal [facility] Comment on above: Order Comment: Speci men Type: BLOOD SPECIMENOrdering Facility: [facility] Address: [address] [place] [address] Performed By: #### 5 7021-8 ####[facility] LABCLIA [id number] [place] [address] Differential cell count method Nom (Bld) Auto Normal [facility] Comment on above: Order Comment: Speci men Type: BLOOD SPECIMENOrdering Facility: [facility] Address: [address] [place] [address] Performed By: #### 5 7021-8 ####[facility] LABCLIA [id number] [place] [address] Eosinophils (Bld) [#/Vol] 0.08 10*3/uL Normal <0.46 [facility] Comment on above: Order Comment: Speci men Type: BLOOD SPECIMENOrdering Facility: [facility] Address: [address] [place] [address] Performed By: #### 5 7021-8 ####[facility] LABCLIA [id number] [place] [address] Eosinophils/100 WBC (Bld) 0.6 % Normal [facility] Comment on above: Order Comment: Speci men Type: BLOOD SPECIMENOrdering Facility: [facility] Address: [address] [place] [address] Performed By: #### 5 7021-8 ####[facility] LABCLIA [id number] [place] [address] Erythrocyte distribution width (RBC) [Ratio] 16.0 % High 11.5-15.0 [facility] Comment on above: Order Comment: Speci men Type: BLOOD SPECIMENOrdering Facility: [facility] Address: [address] [place] [address] Performed By: #### 5 7021-8 ####[facility] LABCLIA [id number] [place] [address] Hematocrit (Bld) [Volume fraction] 42.9 % Normal 36.0-46.0 [facility] Comment on above: Order Comment: Speci men Type: BLOOD SPECIMENOrdering Facility: [facility] Address: [address] [place] [address] Performed By: #### 5 7021-8 ####[facility] LABCLIA [id number] [place] [address] Hemoglobin (Bld) [Mass/Vol] 13.8 g/dL Normal 11.5-15.5 [facility] Comment on above: Order Comment: Speci men Type: BLOOD SPECIMENOrdering Facility: [facility] Address: [address] [place] [address] Performed By: #### 5 7021-8 ####[facility] LABCLIA [id number] [place] [address] Immature granulocytes (Bld) [#/Vol] 0.23 10*3/uL High <0.10 [facility] Comment on above: Order Comment: Speci men Type: BLOOD SPECIMENOrdering Facility: [facility] Address: [address] [place] [address] Performed By: #### 5 7021-8 ####[facility] LABCLIA [id number] [place] [address] Immature granulocytes/100 WBC (Bld) 1.8 % Normal [facility] Comment on above: Order Comment: Speci men Type: BLOOD SPECIMENOrdering Facility: [facility] Address: [address] [place] [address] Performed By: #### 5 7021-8 ####[facility] LABCLIA [id number] [place] [address] Lymphocytes (Bld) [#/Vol] 2.07 10*3/uL Normal 1.00-4.00 [facility] Comment on above: Order Comment: Speci men Type: BLOOD SPECIMENOrdering Facility: [facility] Address: [address] [place] [address] Performed By: #### 5 7021-8 ####[facility] LABCLIA [id number] [place] [address] Lymphocytes/100 WBC (Bld) 15.8 % Normal [facility] Comment on above: Order Comment: Speci men Type: BLOOD SPECIMENOrdering Facility: [facility] Address: [address] [place] [address] Performed By: #### 5 7021-8 ####[facility] LABCLIA [id number] [place] [address] MCH (RBC) [Entitic mass] 30.2 pg Normal 26.0-34.0 [facility] Comment on above: Order Comment: Speci men Type: BLOOD SPECIMENOrdering Facility: [facility] Address: [address] [place] [address] Performed By: #### 5 7021-8 ####[facility] LABCLIA [id number] [place] [address] MCHC (RBC) [Mass/Vol] 32.2 g/dL Normal 30.5-36.0 [facility] Comment on above: Order Comment: Speci men Type: BLOOD SPECIMENOrdering Facility: [facility] Address: [address] [place] [address] Performed By: #### 5 7021-8 ####[facility] LABCLIA [id number] [place] [address] MCV (RBC) [Entitic vol] 93.9 fL Normal 80.0-100.0 [facility] Comment on above: Order Comment: Speci men Type: BLOOD SPECIMENOrdering Facility: [facility] Address: [address] [place] [address] Performed By: #### 5 7021-8 ####[facility] LABCLIA [id number] [place] [address] Monocytes (Bld) [#/Vol] 0.86 10*3/uL Normal <0.87 [facility] Comment on above: Order Comment: Speci men Type: BLOOD SPECIMENOrdering Facility: [facility] Address: [address] [place] [address] Performed By: #### 5 7021-8 ####[facility] LABCLIA [id number] [place] [address] Monocytes/100 WBC (Bld) 6.6 % Normal [facility] Comment on above: Order Comment: Speci men Type: BLOOD SPECIMENOrdering Facility: [facility] Address: [address] [place] [address] Performed By: #### 5 7021-8 ####[facility] LABCLIA [id number] [place] [address] Neutrophils (Bld) [#/Vol] 9.82 10*3/uL High 1.45-7.50 [facility] Comment on above: Order Comment: Speci men Type: BLOOD SPECIMENOrdering Facility: [facility] Address: [address] [place] [address] Performed By: #### 5 7021-8 ####[facility] LABCLIA [id number] [place] [address] Neutrophils/100 WBC (Bld) 74.7 % Normal [facility] Comment on above: Order Comment: Speci men Type: BLOOD SPECIMENOrdering Facility: [facility] Address: [address] [place] [address] Performed By: #### 5 7021-8 ####[facility] LABIA [id number] [place] [address] Nucleated RBC (Bld) [#/Vol] 10*3/uL Normal <0.01 [facility] Comment on above: Order Comment: Speci men Type: BLOOD SPECIMENOrdering Facility: [facility] Address: [address] [place] [address] Performed By: #### 5 7021-8 ####[facility] LABCLIA [id number] [place] [address] Nucleated RBC/100 WBC (Bld) [Ratio] 0.0 /100 WBC Normal [facility] Comment on above: Order Comment: Speci men Type: BLOOD SPECIMENOrdering Facility: [facility] Address: [address] [place] [address] Performed By: #### 5 7021-8 ####[facility] LABCLIA [id number] [place] [address] Platelet mean volume (Bld) [Entitic vol] 9.5 fL Normal 9.0-12.7 [facility] Comment on above: Order Comment: Speci men Type: BLOOD SPECIMENOrdering Facility: [facility] Address: [address] [place] [address] Performed By: #### 5 7021-8 ####[facility] LABCLIA [id number] [place] [address] Platelets (Bld) [#/Vol] 291 10*3/uL Normal 150-400 [facility] Comment on above: Order Comment: Speci men Type: BLOOD SPECIMENOrdering Facility: [facility] Address: [address] [place] [address] Performed By: #### 5 7021-8 ####[facility] LABCLIA [id number] [place] [address] RBC (Bld) [#/Vol] 4.57 10*6/uL Normal 3.90-5.20 [facility] Comment on above: Order Comment: Speci men Type: BLOOD SPECIMENOrdering Facility: [facility] Address: [address] [place] [address] Performed By: #### 5 7021-8 ####[facility] LABCLIA [id number] [place] [address] WBC (Bld) [#/Vol] 13.12 10*3/uL High 3.70-11.00 [facility] Comment on above: Order Comment: Speci men Type: BLOOD SPECIMENOrdering Facility: [facility] Address: [address] [place] [address] Performed By: #### 5 7021-8 ####[facility] LABCLIA [id number] [place] [address] Comprehensive metabolic 2000 panelon 08-29-2024 Albumin [Mass/Vol] 4.2 g/dL Normal 3.9-4.9 [facility] Comment on above: Order Comment: Speci men Type: BLOOD SPECIMENOrdering Facility: [facility] Address: [address] [place] [address] Performed By: #### 2 4323-8 ####[facility] LABCLIA [id number] [place] [address] ALP [Catalytic activity/Vol] 69 U/L Normal 34-123 [facility] Comment on above: Order Comment: Speci men Type: BLOOD SPECIMENOrdering Facility: [facility] Address: [address] [place] [address] Performed By: #### 2 4323-8 ####[facility] LABCLIA [id number] [place] [address] ALT [Catalytic activity/Vol] 38 U/L Normal 7-38 [facility] Comment on above: Order Comment: Speci men Type: BLOOD SPECIMENOrdering Facility: [facility] Address: [address] [place] [address] Performed By: #### 2 4323-8 ####[facility] LABCLIA [id number] [place] [address] Anion gap [Moles/Vol] 12 mmol/L Normal 8-15 [facility] Comment on above: Order Comment: Speci men Type: BLOOD SPECIMENOrdering Facility: [facility] Address: [address] [place] [address] Performed By: #### 2 4323-8 ####[facility] LABCLIA [id number] [place] [address] AST [Catalytic activity/Vol] 15 U/L Normal 13-35 [facility] Comment on above: Order Comment: Speci men Type: BLOOD SPECIMENOrdering Facility: [facility] Address: [address] [place] [address] Performed By: #### 2 4323-8 ####[facility] LABCLIA [id number] [place] [address] Bilirubin [Mass/Vol] 0.2 mg/dL Normal 0.2-1.3 [facility] Comment on above: Order Comment: Speci men Type: BLOOD SPECIMENOrdering Facility: [facility] Address: [address] [place] [address] Performed By: #### 2 4323-8 ####[facility]CLIA [id number] [place] [address] Calcium [Mass/Vol] 10.3 mg/dL High 8.5-10.2 [facility] Comment on above: Order Comment: Speci men Type: BLOOD SPECIMENOrdering Facility: [facility] Address: [address] [place] [address] Performed By: #### 2 4323-8 ####[facility] LABCLIA [id number] [place] [address] Chloride [Moles/Vol] 101 mmol/L Normal 98-107 [facility] Comment on above: Order Comment: Speci men Type: BLOOD SPECIMENOrdering Facility: [facility] Address: [address] [place] [address] Performed By: #### 2 4323-8 ####[facility] LABCLIA [id number] [place] [address] CO2 [Moles/Vol] 26 mmol/L Normal 22-30 [facility] Comment on above: Order Comment: Speci men Type: BLOOD SPECIMENOrdering Facility: [facility] Address: [address] [place] [address] Performed By: #### 2 4323-8 ####[facility] LABCLIA [id number] [place] [address] Creatinine [Mass/Vol] 0.64 mg/dL Normal 0.58-0.96 [facility] Comment on above: Order Comment: Speci men Type: BLOOD SPECIMENOrdering Facility: [facility] Address: [address] [place] [address] Performed By: #### 2 4323-8 ####[facility] LABCLIA [id number] [place] [address] Creatinine and Glomerular filtration rate.predicted panel (S/P/Bld) 113 mL/min/1.73m??? Normal >=60 [facility] Comment on above: Order Comment: Speci men Type: BLOOD SPECIMENOrdering Facility: [facility] Address: [address] [place] [address] Result Comment: Erin mated Glomerular Filtration Rate [...] actual GFR. Performed By: #### 2 4323-8 ####[facility] LABIA [id number] [place] [address] Glucose [Mass/Vol] 139 mg/dL High 74-99 [facility] Comment on above: Order Comment: Speci men Type: BLOOD SPECIMENOrdering Facility: [facility] Address: [address] [place], [place] [address] Result Comment: The [place] Diabetes Association (ADA) provides guidance for cutoff [...] Standards of Medical Care in Diabetes 2016, [place] [employer]. Diabetes Care. 2016.39(Suppl 1). Performed By: #### 2 4323-8 ####[facility] LABCLIA [id number] [place] [address] Potassium [Moles/Vol] 4.4 mmol/L Normal 3.7-5.1 [facility] Comment on above: Order Comment: Speci men Type: BLOOD SPECIMENOrdering Facility: [facility] Address: [address] [place] [address] Performed By: #### 2 4323-8 ####[facility]CLIA [id number] [place] [address] Protein [Mass/Vol] 7.1 g/dL Normal 6.3-8.0 [facility] Comment on above: Order Comment: Speci men Type: BLOOD SPECIMENOrdering Facility: [facility] Address: [address] [place] [address] Performed By: #### 2 4323-8 ####[facility]CL[facility] [id number] [place] [address] Sodium [Moles/Vol] 139 mmol/L Normal 136-144 [facility] Comment on above: Order Comment: Speci men Type: BLOOD SPECIMENOrdering Facility: [facility] Address: [address] [place] [address] Performed By: #### 2 4323-8 ####[facility]CLIA [id number] [place] [address] Urea nitrogen [Mass/Vol] 18 mg/dL Normal 7-21 [facility] Comment on above: Order Comment: Speci men Type: BLOOD SPECIMENOrdering Facility: [facility] Address: [address] [place], [place] [address] Performed By: #### 2 4323-8 ####[facility] LABCLIA [id number] [place] [address] Ferritin SerPl-mCncon 2024 Ferritin [Mass/Vol] 43.1 ng/mL Normal 14.7-205.1 [facility] Comment on above: Order Comment: Speci men Type: BLOOD SPECIMENOrdering Facility: [facility] Address: [address] [place] [address] Performed By: #### 2 132-9, 2284-8, 2276-4, 73710-0 ####[facility] LABCLIA [id number] [place] [address] [place] Folate SerPl-mCncon 08-30-19 25 Folate [Mass/Vol] ng/mL Normal >4.7 [facility] Comment on above: Order Comment: Speci men Type: BLOOD SPECIMENOrdering Facility: [facility] Address: [address] [place] [address] Result Comment: A re sult of > 20 ng/mL is not necessarily indicative of a pathologic or treatable condition: it reflects a limitation of the test methodology.Assay reference range: 4.8 to 24.2 ng/mL. Suitable for detection of folate deficiency.Reference:Folate III (Folate III) [package insert V 1.0 American]. [facility], [place], [place]: March 2015. Performed By: #### 2 132-9, 2284-8, 2276-4, 66082-7 ####[facility] LABIA [id number] [place] [address] [place] IgG SerPl-mCncon 08-29-2024 IgG [Mass/Vol] 729 mg/dL Normal 700-1600 [facility] Comment on above: Order Comment: Speci men Type: BLOOD SPECIMENOrdering Facility: [facility] Address: [address] [place] [address] Performed By: #### 2 465-3 ####[facility] LABIA [id number] [address] [address] [place] Iron and Iron binding capaci ty panelon 08-29-2024 Iron [Mass/Vol] 80 ug/dL Normal 41-186 [facility] Comment on above: Order Comment: Speci men Type: BLOOD SPECIMENOrdering Facility: [facility] Address: [address] [place] [address] Performed By: #### 2 132-9, 2284-8, 2276-4, 53306-0 ####[facility] LABIA [id number] [place] [address] [place] Iron binding capacity [Mass/Vol] 416 ug/dL High 232-386 [facility] Comment on above: Order Comment: Speci men Type: BLOOD SPECIMENOrdering Facility: [facility] Address: [address] [place] [address] Performed By: #### 2 132-9, 2284-8, 2276-4, 33140-7 ####[facility] LABIA [id number] [place] [address] [place] Iron/TIBC [Molar ratio] 19.2 % Normal 15.0-57.0 [facility] Comment on above: Order Comment: Speci men Type: BLOOD SPECIMENOrdering Facility: [facility] Address: [address] [place] [address] Performed By: #### 2 132-9, 2284-8, 2276-4, 66919-2 ####[facility] LABIA [id number] [place] [address] [place] Vit B12 SerPl-mCncon 025 Cobalamin (Vitamin B12) [Mass/Vol] 555 pg/mL Normal 232-1245 [facility] Comment on above: Order Comment: Speci men Type: BLOOD SPECIMENOrdering Facility: [facility] Address: [address] [place] [address] Performed By: #### 2 132-9, 2284-8, 2276-4, 60250-9 ####[facility] LABCLIA [id number] [place] [address] [place] CNPNon 08-28-2024 CNPN Normal [facility] [place] [address] Ultrasound Report Signed Patient: ARIADNA HALEY MR#: [id number] : 1980 Acct:[id number] Age/Sex: 43 / F ADM Date: 08/24/24 Loc: US Attending Dr: Gordo Barfield M.D. Ordering Physician: Gordo Barfield M.D. Date of Service: 08/24/24 Procedure(s): US thyroid Accession Number(s): [id number] cc: GAY ENCISO ; Gordo Barfield M.D. [place] [id number] Patient Name: ARIADNA HALEY MRN: [id number] date: 1980 Sex: F Assigned Patient Location: US Current Patient Location: US Accession/Order Number: [id number] Exam Date: 08/24/2024 09:09 Report Date: 08/24/2024 [...] this was thought to be cystic. The ex chef today considered it solid and it was given TI-RADS 4 classification. No internal color flow is shown. Size has not significantly changed when measuring in a comparable manner. No other nodularity is seen. US/US thyroid IMPRESSION: SIMILAR SMALL LEFT THYROID NODULE. FOLLOW-UP IN ONE YEAR IS SUGGESTED. Impression dictated by: Simin Nelson M.D.08/24/2024 9:22 AM Dictation Location: [place] [address] Electronically authenticated by: [id number] Y Date: 08/24/2024 09:22 Dictated By: Simin Nelson M.D. Signed By: 08/24/24923 DD/ 1 TD/TT: Hedis Coordinator: [facility] Radiology, Radiologist, MD - 08/24/2024 [place] [address] Ultrasound Report Signed Patient: ARIADNA HALEY MR#: [id number] : 1980 Acct:[id number] Age/Sex: 43 / F ADM Date: 08/24/24 Loc: US Attending Dr: Gordo Barfield M.D. Ordering Physician: Gordo Barfield M.D. Date of Service: 08/24/24 Procedure(s): US thyroid Accession Number(s): [id number] cc: GAY ENCISO ; Gordo Barfield M.D. [address] [place] [id number] Patient Name: ARIADNA HALEY MRN: [facility]:[id number] date: 1980 Sex: F Assigned Patient Location: US Current Patient Location: US Accession/Order Number: [id number] Exam Date: 08/24/2024 09:09 Report Date: 08/24/2024 [...] this was thought to be cystic. The ex chef today considered it solid and it was given TI-RADS 4 classification. No internal color flow is shown. Size has not significantly changed when measuring in a comparable manner. No other nodularity is seen. US/US thyroid IMPRESSION: SIMILAR SMALL LEFT THYROID NODULE. FOLLOW-UP IN ONE YEAR IS SUGGESTED. Impression dictated by: Simin Nelson M.D.08/24/2024 9:22 AM Dictation Location: [place] [address] Electronically authenticated by: [id number] Y Date: 08/24/2024 09:22 Dictated By: Simin Nelson M.D. Signed By: 08/24/24923 DD/ 1 TD/TT: Hedis Coordinator: [facility] Radiology Study observation (narrative) [facility] US Thyroid glandOrdered By: Radiologist Radiology on 08-24-2024 [facility] Work Phone: CNPNon 08-08-2024 CNPN Normal [facility] HCG ( test) IA.rapi d Ql (U)Ordered By: Adolfo Kang on 07-19-2024 HCG ( test) Ql (U) Urine human chorionic gonadotropin (hCG) detection by immunoassay [facility] HCG,Urineon 07-19-2024 Beta HCG ( test) Ql (U) Negative Normal [facility] Comment on above: Result Comment: PERF ORMED BY: [place] [address] PATHOLOGIST AREA INTELLIGENCE TECHNICIAN HAYDEN LLAMAS M.D. Performed By: #### U HCG #### [address] CNOVon 07-12-2024 CNOV Normal [facility] CNPNon 07-09-2024 CNPN Normal [facility] 25(OH)D3 SerPl-mCncon 2024 25-hydroxyvitamin D3 [Mass/Vol] 28.5 ng/mL Low 31.0-80.0 [facility] Comment on above: Order Comment: Speci men Type: BLOOD SPECIMENOrdering Facility: [facility] Address: [address] [place] [address] Result Comment: Clas sification of 25 [place] Vitamin D status:Deficiency/Insufficiency: < or = 30 ng/ml.Sufficiency/Optimal Levels: 31-80 ng/mLToxicity: > 100 ng/mL.Test performed by chemiluminescent immunoassay. Performed By: #### 1 989-3 ####[facility] LABCLIA [id number] [address] [place] CBC panel Auto (Bld)on 06-30 Erythrocyte distribution width (RBC) [Ratio] 14.3 % Normal 11.5-15.0 [facility] Comment on above: Order Comment: Speci men Type: BLOOD SPECIMENOrdering Facility: [facility] Address: [address] [place] [address] Performed By: #### 5 8410-2 ####[facility] LABIA [id number] [address] STATES OF [facility] Hematocrit (Bld) [Volume fraction] 41.3 % Normal 36.0-46.0 [facility] Comment on above: Order Comment: Speci men Type: BLOOD SPECIMENOrdering Facility: [facility] Address: [address] [place] [address] Performed By: #### 5 8410-2 ####[facility] LABIA [id number] [place] [id number] [place] Hemoglobin (Bld) [Mass/Vol] 13.5 g/dL Normal 11.5-15.5 [facility] Comment on above: Order Comment: Speci men Type: BLOOD SPECIMENOrdering Facility: [facility] Address: [address] [place] [address] Performed By: #### 5 8410-2 ####[facility] LABIA [id number] [place] [id number] [place] MCH (RBC) [Entitic mass] 30.4 pg Normal 26.0-34.0 [facility] Comment on above: Order Comment: Speci men Type: BLOOD SPECIMENOrdering Facility: [facility] Address: [address] [place] [address] Performed By: #### 5 8410-2 ####[facility] LABIA [id number] [place] [id number] [place] MCHC (RBC) [Mass/Vol] 32.7 g/dL Normal 30.5-36.0 [facility] Comment on above: Order Comment: Speci men Type: BLOOD SPECIMENOrdering Facility: [facility] Address: [address] [place] [address] Performed By: #### 5 8410-2 ####[facility] LABIA [id number] [place] [id number] [place] MCV (RBC) [Entitic vol] 93.0 fL Normal 80.0-100.0 [facility] Comment on above: Order Comment: Speci men Type: BLOOD SPECIMENOrdering Facility: [facility] Address: [address] [place] [address] Performed By: #### 5 8410-2 ####[facility] LABIA [id number] [place] [address] [place] Nucleated RBC (Bld) [#/Vol] 10*3/uL Normal <0.01 [facility] Comment on above: Order Comment: Speci men Type: BLOOD SPECIMENOrdering Facility: [facility] Address: [address] [place] [address] Performed By: #### 5 8410-2 ####[facility] LABIA [id number] [place] [id number] [place] Platelet mean volume (Bld) [Entitic vol] 9.8 fL Normal 9.0-12.7 [facility] Comment on above: Order Comment: Speci men Type: BLOOD SPECIMENOrdering Facility: [facility] Address: [address] [place] [address] Performed By: #### 5 8410-2 ####[facility] LABCLIA [id number] [place] [address] [place] Platelets (Bld) [#/Vol] 341 10*3/uL Normal 150-400 [facility] Comment on above: Order Comment: Speci men Type: BLOOD SPECIMENOrdering Facility: [facility] Address: [address] [place] [address] Performed By: #### 5 8410-2 ####[facility] LABIA [id number] [place] [address] [place] RBC (Bld) [#/Vol] 4.44 10*6/uL Normal 3.90-5.20 [facility] Comment on above: Order Comment: Speci men Type: BLOOD SPECIMENOrdering Facility: [facility] Address: [address] [place] [address] Performed By: #### 5 8410-2 ####[facility] LABIA [id number] [place] [address] [place] WBC (Bld) [#/Vol] 12.66 10*3/uL High 3.70-11.00 [facility] Comment on above: Order Comment: Speci men Type: BLOOD SPECIMENOrdering Facility: [facility] Address: [address] [place] [address] Performed By: #### 5 8410-2 ####[facility] LABIA [id number] [place] [address] [place] CRP SerPl-mCncon 06-30-2024 CRP [Mass/Vol] 0.1 mg/dL Normal <0.9 [facility] Comment on above: Order Comment: Speci men Type: BLOOD SPECIMENOrdering Facility: [facility] Address: [address] [place] [address] Performed By: #### 1 988-5, 09677-2 ####[facility] LABIA [id number] [place] [id number] [place] [facility] Comprehensive metabolic 2000 panelon 06-30-2024 Albumin [Mass/Vol] 4.0 g/dL Normal 3.9-4.9 [facility] Comment on above: Order Comment: Speci men Type: BLOOD SPECIMENOrdering Facility: [facility] Address: [address] [place] [address] Performed By: #### 1 988-5, 73672-9 ####[facility] LABCLIA [id number] [place] [address] [place] ALP [Catalytic activity/Vol] 52 U/L Normal 34-123 [facility] Comment on above: Order Comment: Speci men Type: BLOOD SPECIMENOrdering Facility: [facility] Address: [address] [place] [address] Performed By: #### 1 988-5, 19090-7 ####[facility] LABCLIA [id number] [place] [id number] [place] ALT [Catalytic activity/Vol] 26 U/L Normal 7-38 [facility] Comment on above: Order Comment: Speci men Type: BLOOD SPECIMENOrdering Facility: [facility] Address: [address] [place] [address] Performed By: #### 1 988-5, 63909-0 ####[facility] LABCLIA [id number] [place] [address] [place] Anion gap [Moles/Vol] 10 mmol/L Normal 8-15 [facility] Comment on above: Order Comment: Speci men Type: BLOOD SPECIMENOrdering Facility: [facility] Address: [address] [place] [address] Performed By: #### 1 988-5, 01658-1 ####[facility] LABCLIA [id number] [place] [address] [place] AST [Catalytic activity/Vol] 12 U/L Low 13-35 [facility] Comment on above: Order Comment: Speci men Type: BLOOD SPECIMENOrdering Facility: [facility] Address: [address] [place] [address] Performed By: #### 1 988-5, 85081-5 ####[facility] LABCLIA [id number] [place] [address] [place] Bilirubin [Mass/Vol] 0.3 mg/dL Normal 0.2-1.3 [facility] Comment on above: Order Comment: Speci men Type: BLOOD SPECIMENOrdering Facility: [facility] Address: [address] [place] [address] Performed By: #### 1 988-5, 58019-2 ####[facility] LABIA [id number] [place] [id number] [place] Calcium [Mass/Vol] 9.5 mg/dL Normal 8.5-10.2 [facility] Comment on above: Order Comment: Speci men Type: BLOOD SPECIMENOrdering Facility: [facility] Address: [address] [place] [address] Performed By: #### 1 988-5, 07135-7 ####[facility] LABIA [id number] [place] [id number] [place] Chloride [Moles/Vol] 103 mmol/L Normal 98-107 [facility] Comment on above: Order Comment: Speci men Type: BLOOD SPECIMENOrdering Facility: [facility] Address: [address] [place] [address] Performed By: #### 1 988-5, ####[facility] LABCLIA [id number] [place] [address] [place] CO2 [Moles/Vol] 27 mmol/L Normal 22-30 [facility] Comment on above: Order Comment: Speci men Type: BLOOD SPECIMENOrdering Facility: [facility] Address: [address] [place] [address] Performed By: #### 1 988-5, 61333-4 ####[facility] LABCLIA [id number] [place] [id number] [place] Creatinine [Mass/Vol] 0.78 mg/dL Normal 0.58-0.96 [facility] Comment on above: Order Comment: Semaj cortés Type: BLOOD SPECIMENOrdering Facility: [facility] Address: [address] [place] [address] Performed By: #### 1 988-5, 81531-0 ####[facility] LABIA [id number] [place] [id number] [place] Creatinine and Glomerular filtration rate.predicted panel (S/P/Bld) 97 mL/min/1.73m??? Normal >=60 [facility] Comment on above: Order Comment: Semaj cortés Type: BLOOD SPECIMENOrdering Facility: [facility] Address: [address] [place] [address] Result Comment: Erin mated Glomerular Filtration Rate [...] accurately reflect actual GFR. Performed By: #### 1 988-5, 92445-4 ####[facility] LABIA [id number] [place] [id number] [place] Glucose [Mass/Vol] 116 mg/dL High 74-99 [facility] Comment on above: Order Comment: Semaj cortés Type: BLOOD SPECIMENOrdering Facility: [facility] Address: [address] [place] [address] Result Comment: The [place] [employer] (ADA) provides guidance for cutoff [...] Standards of Medical Care in Diabetes 2016, [place] [employer]. Diabetes Care. 2016.39(Suppl 1). Performed By: #### 1 988-5, 56011-6 ####[facility] LABCLIA [id number] [place] [address] [place] Potassium [Moles/Vol] 3.8 mmol/L Normal 3.7-5.1 [facility] Comment on above: Order Comment: Speci men Type: BLOOD SPECIMENOrdering Facility: [facility] Address: [address] [place] [id number] Performed By: #### 1 988-5, 69270-4 ####[facility] LABIA [id number] [place] [address] [place] Protein [Mass/Vol] 7.6 g/dL Normal 6.3-8.0 [facility] Comment on above: Order Comment: Speci men Type: BLOOD SPECIMENOrdering Facility: [facility] Address: [address] [place] [address] Performed By: #### 1 988-5, 19349-7 ####[facility] LABIA [id number] [place] [address] [place] Sodium [Moles/Vol] 140 mmol/L Normal 136-144 [facility] Comment on above: Order Comment: Speci men Type: BLOOD SPECIMENOrdering Facility: [facility] Address: [address] [place] [address] Performed By: #### 1 988-5, 90720-7 ####[facility] LABIA [id number] [place] [address] [place] Urea nitrogen [Mass/Vol] 18 mg/dL Normal 7-21 [facility] Comment on above: Order Comment: Speci men Type: BLOOD SPECIMENOrdering Facility: [facility] Address: [address] [place] [address] Performed By: #### 1 988-5, 43792-1 ####[facility] LABCLIA [id number] [place] [address] [place] ESR Westergren method (Bld) [Velocity]on 06-30-2024 ESR (Bld) [Velocity] 28 mm/h High 0-20 [facility] Comment on above: Order Comment: Speci men Type: BLOOD SPECIMENOrdering Facility: [facility] Address: [address] [place] [address] Performed By: #### 4 537-7 ####[facility] LABCLIA [id number] [place] [address] [place] CNPNon 06-16-2024 CNPN Normal [facility] ALLIED HEALTHon 06-13-2024 ALLIED HEALTH Normal [facility] CBC W Auto Differential pane l (Bld)on 06-13-2024 Basophils (Bld) [#/Vol] 0.10 10*3/uL [facility] Basophils/100 WBC (Bld) 0.7 % [facility] Differential cell count method Nom (Bld) Auto [facility] Eosinophils (Bld) [#/Vol] 0.15 10*3/uL [facility] Eosinophils/100 WBC (Bld) 1.1 % [facility] Erythrocyte distribution width (RBC) [Ratio] 14.2 % 11.5 - 15.0 % [facility] Hematocrit (Bld) [Volume fraction] 39.0 % 36.0 - 46.0 % [facility] Hemoglobin (Bld) [Mass/Vol] 13.0 g/dL 11.5 - 15.5 g/dL [facility] Immature granulocytes (Bld) [#/Vol] 0.21 10*3/uL High [facility] Immature granulocytes/100 WBC (Bld) 1.5 % [facility] Interpretation and review of laboratory results Abnormal [facility] Lymphocytes (Bld) [#/Vol] 2.16 10*3/uL [facility] Lymphocytes/100 WBC (Bld) 15.4 % [facility] MCH (RBC) [Entitic mass] 30.5 pg 26.0 - 34.0 pg [facility] MCHC (RBC) [Mass/Vol] 33.3 g/dL 30.5 - 36.0 g/dL [facility] MCV (RBC) [Entitic vol] 91.5 fL 80.0 - 100.0 fL [facility] Monocytes (Bld) [#/Vol] 0.79 10*3/uL [facility] Monocytes/100 WBC (Bld) 5.6 % [facility] Neutrophils (Bld) [#/Vol] 10.59 10*3/uL High [facility] Neutrophils/100 WBC (Bld) 75.7 % [facility] Nucleated RBC (Bld) [#/Vol] NINF [facility] Nucleated RBC/100 WBC (Bld) [Ratio] 0.0 % /100 WBC [facility] Platelet mean volume (Bld) [Entitic vol] 9.9 fL 9.0 - 12.7 fL [facility] Platelets (Bld) [#/Vol] 327 10*3/uL [facility] RBC (Bld) [#/Vol] 4.26 10*6/uL 3.90 - 5.2 0 m/uL [facility] WBC (Bld) [#/Vol] 14.00 10*3/uL High [facility] Basophils (Bld) [#/Vol] 0.10 10*3/uL Normal <0.11 [facility] Comment on above: Order Comment: Speci men Type: BLOOD SPECIMENOrdering Facility: [facility] Address: [address] [place] [address] Performed By: #### 5 7021-8 ####[facility] LABCLIA [id number] [place] [address] Basophils/100 WBC (Bld) 0.7 % Normal [facility] Comment on above: Order Comment: Speci men Type: BLOOD SPECIMENOrdering Facility: [facility] Address: [address] [place] [address] Performed By: #### 5 7021-8 ####[facility] LABCLIA [id number] [place] [address] Differential cell count method Nom (Bld) Auto Normal [facility] Comment on above: Order Comment: Speci men Type: BLOOD SPECIMENOrdering Facility: [facility] Address: [address] [place] [address] Performed By: #### 5 7021-8 ####[facility] LABCLIA [id number] [place] [address] Eosinophils (Bld) [#/Vol] 0.15 10*3/uL Normal <0.46 [facility] Comment on above: Order Comment: Speci men Type: BLOOD SPECIMENOrdering Facility: [facility] Address: [address] [place] [address] Performed By: #### 5 7021-8 ####[facility] LABCLIA [id number] [place] [address] Eosinophils/100 WBC (Bld) 1.1 % Normal [facility] Comment on above: Order Comment: Speci men Type: BLOOD SPECIMENOrdering Facility: [facility] Address: [address] [place] [address] Performed By: #### 5 7021-8 ####[facility] LABCLIA [id number] [place] [address] Erythrocyte distribution width (RBC) [Ratio] 14.2 % Normal 11.5-15.0 [facility] Comment on above: Order Comment: Speci men Type: BLOOD SPECIMENOrdering Facility: [facility] Address: [address] [place] [address] Performed By: #### 5 7021-8 ####[facility] LABCLIA [id number] [place] [address] Hematocrit (Bld) [Volume fraction] 39.0 % Normal 36.0-46.0 [facility] Comment on above: Order Comment: Speci men Type: BLOOD SPECIMENOrdering Facility: [facility] Address: [address] [place] [address] Performed By: #### 5 7021-8 ####[facility] LABCLIA [id number] [place] [address] Hemoglobin (Bld) [Mass/Vol] 13.0 g/dL Normal 11.5-15.5 [facility] Comment on above: Order Comment: Speci men Type: BLOOD SPECIMENOrdering Facility: [facility] Address: [address] [place] [address] Performed By: #### 5 7021-8 ####[facility] LABCLIA [id number] [place] [address] Immature granulocytes (Bld) [#/Vol] 0.21 10*3/uL High <0.10 [facility] Comment on above: Order Comment: Speci men Type: BLOOD SPECIMENOrdering Facility: [facility] Address: [address] [place] [address] Performed By: #### 5 7021-8 ####[facility] LABCLIA [id number] [place] [address] Immature granulocytes/100 WBC (Bld) 1.5 % Normal [facility] Comment on above: Order Comment: Speci men Type: BLOOD SPECIMENOrdering Facility: [facility] Address: [address] [place] [address] Performed By: #### 5 7021-8 ####[facility] LABCLIA [id number] [place] [address] Lymphocytes (Bld) [#/Vol] 2.16 10*3/uL Normal 1.00-4.00 [facility] Comment on above: Order Comment: Speci men Type: BLOOD SPECIMENOrdering Facility: [facility] Address: [address] [place] [address] Performed By: #### 5 7021-8 ####[facility] LABCLIA [id number] [place] [address] Lymphocytes/100 WBC (Bld) 15.4 % Normal [facility] Comment on above: Order Comment: Speci men Type: BLOOD SPECIMENOrdering Facility: [facility] Address: [address] [place] [address] Performed By: #### 5 7021-8 ####[facility] LABCLIA [id number] [place] [address] MCH (RBC) [Entitic mass] 30.5 pg Normal 26.0-34.0 [facility] Comment on above: Order Comment: Speci men Type: BLOOD SPECIMENOrdering Facility: [facility] Address: [address] [place] [address] Performed By: #### 5 7021-8 ####[facility] LABCLIA [id number] [place] [address] MCHC (RBC) [Mass/Vol] 33.3 g/dL Normal 30.5-36.0 [facility] Comment on above: Order Comment: Speci men Type: BLOOD SPECIMENOrdering Facility: [facility] Address: [address] [place] [address] Performed By: #### 5 7021-8 ####[facility] LABCLIA [id number] [place] [address] MCV (RBC) [Entitic vol] 91.5 fL Normal 80.0-100.0 [facility] Comment on above: Order Comment: Speci men Type: BLOOD SPECIMENOrdering Facility: [facility] Address: [address] [place] [address] Performed By: #### 5 7021-8 ####[facility] LABCLIA [id number] [place] [address] Monocytes (Bld) [#/Vol] 0.79 10*3/uL Normal <0.87 [facility] Comment on above: Order Comment: Speci men Type: BLOOD SPECIMENOrdering Facility: [facility] Address: [address] [place] [address] Performed By: #### 5 7021-8 ####[facility] LABCLIA [id number] [place] [address] Monocytes/100 WBC (Bld) 5.6 % Normal [facility] Comment on above: Order Comment: Speci men Type: BLOOD SPECIMENOrdering Facility: [facility] Address: [address] [place] [address] Performed By: #### 5 7021-8 ####[facility] LABCLIA [id number] [place] [address] Neutrophils (Bld) [#/Vol] 10.59 10*3/uL High 1.45-7.50 [facility] Comment on above: Order Comment: Speci men Type: BLOOD SPECIMENOrdering Facility: [facility] Address: [address] [place] [address] Performed By: #### 5 7021-8 ####[facility] LABCLIA [id number] [place] [address] Neutrophils/100 WBC (Bld) 75.7 % Normal [facility] Comment on above: Order Comment: Speci men Type: BLOOD SPECIMENOrdering Facility: [facility] Address: [address] [place] [address] Performed By: #### 5 7021-8 ####[facility] LABCLIA [id number] [place] [address] Nucleated RBC (Bld) [#/Vol] 10*3/uL Normal <0.01 [facility] Comment on above: Order Comment: Speci men Type: BLOOD SPECIMENOrdering Facility: [facility] Address: [address] [place] [address] Performed By: #### 5 7021-8 ####[facility] LABCLIA [id number] [place] [address] Nucleated RBC/100 WBC (Bld) [Ratio] 0.0 /100 WBC Normal [facility] Comment on above: Order Comment: Speci men Type: BLOOD SPECIMENOrdering Facility: [facility] Address: [address] [place] [address] Performed By: #### 5 7021-8 ####[facility] LABCLIA [id number] [place] [address] Platelet mean volume (Bld) [Entitic vol] 9.9 fL Normal 9.0-12.7 [facility] Comment on above: Order Comment: Speci men Type: BLOOD SPECIMENOrdering Facility: [facility] Address: [address] [place] [address] Performed By: #### 5 7021-8 ####[facility] LABCLIA [id number] [place] [address] Platelets (Bld) [#/Vol] 327 10*3/uL Normal 150-400 [facility] Comment on above: Order Comment: Speci men Type: BLOOD SPECIMENOrdering Facility: [facility] Address: [address] [place] [address] Performed By: #### 5 7021-8 ####[facility] LABCLIA [id number] [place] [address] RBC (Bld) [#/Vol] 4.26 10*6/uL Normal 3.90-5.20 [facility] Comment on above: Order Comment: Speci men Type: BLOOD SPECIMENOrdering Facility: [facility] Address: [address] [place] [address] Performed By: #### 5 7021-8 ####[facility] LABCLIA [id number] [place] [address] WBC (Bld) [#/Vol] 14.00 10*3/uL High 3.70-11.00 [facility] Comment on above: Order Comment: Speci men Type: BLOOD SPECIMENOrdering Facility: [facility] Address: [address] [place] [address] Performed By: #### 5 7021-8 ####[facility] LABCLIA [id number] [place] [address] CNOVSPon 06-13-2024 CNOVSP Normal [facility] 2000 panelOrdered By: Josse Merlos on 06-13-2024 Albumin [Mass/Vol] 3.9 g/dL 3.9 - 4.9 g/dL [facility] ALP [Catalytic activity/Vol] 73 U/L 34 - 123 U/L [facility] ALT [Catalytic activity/Vol] 24 U/L 7 - 38 U/L [facility] Anion gap [Moles/Vol] 15 mmol/L 8 - 15 mmol/L [facility] AST [Catalytic activity/Vol] 12 U/L Low 13 - 35 U/L [facility] Bilirubin [Mass/Vol] mg/dL Low 0.2 - 1 .3 mg/dL [facility] Calcium [Mass/Vol] 9.2 mg/dL 8.5 - 10. 2 mg/dL [facility] Chloride [Moles/Vol] 104 mmol/L 98 - 10 7 mmol/L [facility] CO2 [Moles/Vol] 19 mmol/L Low 22 - 30 mmol/L [facility] Creatinine [Mass/Vol] 0.58 mg/dL 0.58 - 0.96 mg/dL [facility] GFR/1.73 sq M.predicted among non-blacks MDRD (S/P/Bld) [Vol rate/Area] 115 mL/min/{1.73_m2} - PINF [facility] Comment on above: Estimated Glomerular Filtration [...] 163 mg/dL High 74 - 99 mg/dL [facility] Comment on above: The [place] Diab[employer] Association (ADA) provides guidance for [...] Standards of Medical Care in Diabetes 2016, [place] [employer]. Diabetes Care. 2016.39(Suppl 1). Interpretation and review of laboratory results Abnormal [facility] Potassium [Moles/Vol] 3.9 mmol/L 3.7 - 5.1 mmol/L [facility] Protein [Mass/Vol] 6.8 g/dL 6.3 - 8.0 g/dL [facility] Sodium [Moles/Vol] 138 mmol/L 136 - 144 mmol/L [facility] Urea nitrogen [Mass/Vol] 13 mg/dL 7 - 21 mg/dL [facility] Comprehensive metabolic 2000 panelon 06-13-2024 Albumin [Mass/Vol] 3.9 g/dL Normal 3.9-4.9 [facility] Comment on above: Order Comment: Speci men Type: BLOOD SPECIMENOrdering Facility: [facility] Address: [address] [place] [address] Performed By: #### 2 4323-8 ####[facility] LABCLIA [id number] [place] [address] ALP [Catalytic activity/Vol] 73 U/L Normal 34-123 [facility] Comment on above: Order Comment: Speci men Type: BLOOD SPECIMENOrdering Facility: [facility] Address: [address] [place] [address] Performed By: #### 2 4323-8 ####[facility] LABCLIA [id number] [place] [address] ALT [Catalytic activity/Vol] 24 U/L Normal 7-38 [facility] Comment on above: Order Comment: Speci men Type: BLOOD SPECIMENOrdering Facility: [facility] Address: [address] [place] [address] Performed By: #### 2 4323-8 ####[facility] LABCLIA [id number] [place] [address] Anion gap [Moles/Vol] 15 mmol/L Normal 8-15 [facility] Comment on above: Order Comment: Speci men Type: BLOOD SPECIMENOrdering Facility: [facility] Address: [address] [place], [place] [address] Performed By: #### 2 4323-8 ####[facility] LABCLIA [id number] [place] [address] AST [Catalytic activity/Vol] 12 U/L Low 13-35 [facility] Comment on above: Order Comment: Speci men Type: BLOOD SPECIMENOrdering Facility: [facility] Address: [address] [place] [address] Performed By: #### 2 4323-8 ####[facility] LABCLIA [id number] [place] [address] Bilirubin [Mass/Vol] mg/dL Low 0.2-1.3 [facility] Comment on above: Order Comment: Speci men Type: BLOOD SPECIMENOrdering Facility: [facility] Address: [address] [place] [address] Performed By: #### 2 4323-8 ####[facility] LABCLIA [id number] [place] [address] Calcium [Mass/Vol] 9.2 mg/dL Normal 8.5-10.2 [facility] Comment on above: Order Comment: Speci men Type: BLOOD SPECIMENOrdering Facility: [facility] Address: [address] [place] [address] Performed By: #### 2 4323-8 ####[facility] LABCLIA [id number] [place] [address] Chloride [Moles/Vol] 104 mmol/L Normal 98-107 [facility] Comment on above: Order Comment: Speci men Type: BLOOD SPECIMENOrdering Facility: [facility] Address: [address] [place], [place] [address] Performed By: #### 2 4323-8 ####[facility] LABCLIA [id number] [place] [address] CO2 [Moles/Vol] 19 mmol/L Low 22-30 [facility] Comment on above: Order Comment: Speci men Type: BLOOD SPECIMENOrdering Facility: [facility] Address: [address] [place] [address] Performed By: #### 2 4323-8 ####[facility] LABCLIA [id number] [place] [address] Creatinine [Mass/Vol] 0.58 mg/dL Normal 0.58-0.96 [facility] Comment on above: Order Comment: Speci men Type: BLOOD SPECIMENOrdering Facility: [facility] Address: [address] [place] [address] Performed By: #### 2 4323-8 ####[facility] LABCLIA [id number] [place] [address] Creatinine and Glomerular filtration rate.predicted panel (S/P/Bld) 115 mL/min/1.73m??? Normal >=60 [facility] Comment on above: Order Comment: Speci men Type: BLOOD SPECIMENOrdering Facility: [facility] Address: [address] [place] [address] Result Comment: Erin mated Glomerular Filtration Rate [...] actual GFR. Performed By: #### 2 4323-8 ####[facility] LABCLIA [id number] [place] [address] Glucose [Mass/Vol] 163 mg/dL High 74-99 [facility] Comment on above: Order Comment: Speci men Type: BLOOD SPECIMENOrdering Facility: [facility] Address: [address] [place] [address] Result Comment: The [place] Diabetes Association (ADA) provides guidance for cutoff [...] Standards of Medical Care in Diabetes 2016, [place] [employer]. Diabetes Care. 2016.39(Suppl 1). Performed By: #### 2 4323-8 ####[facility] LABCLIA [id number] [place] [address] Potassium [Moles/Vol] 3.9 mmol/L Normal 3.7-5.1 [facility] Comment on above: Order Comment: Speci men Type: BLOOD SPECIMENOrdering Facility: [facility] Address: [address] [place] [address] Performed By: #### 2 4323-8 ####[facility] LABCLIA [id number] [place] [address] Protein [Mass/Vol] 6.8 g/dL Normal 6.3-8.0 [facility] Comment on above: Order Comment: Speci men Type: BLOOD SPECIMENOrdering Facility: [facility] Address: [address] [place] [address] Performed By: #### 2 4323-8 ####[facility] LABCLIA [id number] [place] [address] Sodium [Moles/Vol] 138 mmol/L Normal 136-144 [facility] Comment on above: Order Comment: Speci men Type: BLOOD SPECIMENOrdering Facility: [facility] Address: [address] [place] [address] Performed By: #### 2 4323-8 ####[facility] LABCLIA [id number] [place] [address] Urea nitrogen [Mass/Vol] 13 mg/dL Normal 7-21 [facility] Comment on above: Order Comment: Speci men Type: BLOOD SPECIMENOrdering Facility: [facility] Address: [address] [place], [place] [address] Performed By: #### 2 4323-8 ####[facility] LABCLIA [id number] [place] [id number] ESR Westergren method (Bld) [Velocity]on 06-13-2024 ESR (Bld) [Velocity] 30 mm/h High [facility] Interpretation and review of laboratory results Abnormal [facility] ESR (Bld) [Velocity] 30 mm/h High 0-20 [facility] Comment on above: Order Comment: Speci men Type: BLOOD SPECIMENOrdering Facility: [facility] Address: [address] [place] [address] Performed By: #### 4 537-7 ####[facility] LABCLIA [id number] [place] [address] [place] FERRITINon 06-13-2024 Ferritin [Mass/Vol] 30.9 ng/mL 14.7 - 2 05.1 ng/mL [facility] FOLATE, SERUMon 06-13-2024 Folate [Mass/Vol] 19.6 ng/mL 4.7 - PINF ng/mL [facility] Ferritin SerPl-mCncon 2024 Ferritin [Mass/Vol] 30.9 ng/mL Normal 14.7-205.1 [facility] Comment on above: Order Comment: Speci men Type: BLOOD SPECIMENOrdering Facility: [facility] Address: [address] [place] [address] Performed By: #### 2 284-8, 2276-4, 36541-8, 2132-9 ####[facility] LABCLIA [id number] [place] [id number] [place] Ferritin [Mass/Vol]on 2024 Interpretation and review of laboratory results Normal [facility] Folate SerPl-mCncon 06-13-19 25 Folate [Mass/Vol] 19.6 ng/mL Normal >4.7 [facility] Comment on above: Order Comment: Speci men Type: BLOOD SPECIMENOrdering Facility: [facility] Address: [address] [place] [address] Performed By: #### 2 284-8, 2276-4, 26260-8, 2132-9 ####[facility] LABCLIA [id number] [place] [address] [place] IMMUNOGLOBULINS,IGG,IGA,IGMo n 06-13-2024 IgA [Mass/Vol] 170 mg/dL Normal 70-400 [facility] Comment on above: Order Comment: Speci men Type: BLOOD SPECIMENOrdering Facility: [facility] Address: [address] [place] [address] Performed By: #### S ERIMM ####[facility] LABCLIA [id number] [place] [address] [place] IgG [Mass/Vol] 663 mg/dL Low 700-1600 [facility] Comment on above: Order Comment: Speci men Type: BLOOD SPECIMENOrdering Facility: [facility] Address: [address] [place] [address] Performed By: #### S ERIMM ####[facility] LABCLIA [id number] [place] [address] [place] IgM [Mass/Vol] 376 mg/dL High 40-230 [facility] Comment on above: Order Comment: Speci men Type: BLOOD SPECIMENOrdering Facility: [facility] Address: [address] [place] [address] Performed By: #### S ERIMM ####[facility] LABCLIA [id number] [place] [address] [place] Iron and Iron binding capaci ty panelon 06-13-2024 Iron [Mass/Vol] 64 ug/dL Normal 41-186 [facility] Comment on above: Order Comment: Speci men Type: BLOOD SPECIMENOrdering Facility: [facility] Address: [address] [place], [place] [address] Performed By: #### 2 284-8, 2276-4, 38919-7, 2132-01 ####[facility] LABCLIA [id number] [place] [id number] [place] Iron binding capacity [Mass/Vol] 409 ug/dL High 232-386 [facility] Comment on above: Order Comment: Speci men Type: BLOOD SPECIMENOrdering Facility: [facility] Address: [address] [place], [place] [address] Performed By: #### 2 284-8, 2276-4, 44748-6, 2132-01 ####[facility] LABCLIA [id number] [place] [id number] [place] Iron/TIBC [Molar ratio] 15.6 % Normal 15.0-57.0 [facility] Comment on above: Order Comment: Speci men Type: BLOOD SPECIMENOrdering Facility: [facility] Address: [address] [place] [address] Performed By: #### 2 284-8, 2276-4, 24507-6, 2132-01 ####[facility] LABCLIA [id number] [place] [id number] [place] Laboratory - Chemistry and C hemistry - challengeon 06-13-2024 IgA [Mass/Vol] 170 mg/dL 70 - 400 mg/dL [facility] IgG [Mass/Vol] 663 mg/dL Low 700 - 1600 mg/dL [facility] IgM [Mass/Vol] 376 mg/dL High 40 - 230 mg/dL [facility] No Panel Informationon 06-13 Interpretation and review of laboratory results Normal [facility] Interpretation and review of laboratory results Abnormal [facility] VITAMIN B12on 06-13-2024 Cobalamin (Vitamin B12) [Mass/Vol] 516 pg/mL 232 - 1245 pg/mL [facility] Vit B12 SerPl-mCncon 025 Cobalamin (Vitamin B12) [Mass/Vol] 516 pg/mL Normal 232-1245 [facility] Comment on above: Order Comment: Speci men Type: BLOOD SPECIMENOrdering Facility: [facility] Address: [address] [address] Performed By: #### 2 284-8, 2276-4, 15792-3, 2132-9 ####[facility] LABCLIA [id number] [facility] HOSPITALSaúl [place]IV[id number] [address] [place] CNPNon 06-12-2024 CNPN Normal [facility] IGP,APTIMA HPV,AGE GDLNon AGE GDLN ACOG TESTING Note . [facility] Comment on above: TESTS RESULT FLAG UN ITS REF RANGE LAB Clinician Provided Cytology Information Source.............Cervix;Endocervix No. of containers..01 ThinPrep Vial Age Algo ACOG Vicky... 01 FLAG LEGEND: L-Low Normal,H-High Normal,LL-Alert Low,HH-Alert High <-Panic Low,>-Panic High,A-Abnormal,AA-Critical Abnormal Performed at: 01 =G [facility] [place] [address] Aparna Solorzano MD, HPV APTIMA Negative Negative [facility] Comment on above: This nucleic acid am plification test detects fourteen high- risk HPV types (16,18,31,33,35,39,45,51,52,56,58,59,66,68) without differentiation. Performed at: = - [facility] [id number] Small Engine Mechanic: Aparna Solorzano MD, Phone: [phone] Performed at: - [facility], [place] [id number] Small Engine Mechanic: Aparna Solorzano MD, Phone: [phone] IGP, APTIMA HPV, RFX 16/18,45 Note . [facility] Comment on above: TESTS RESULT FLAG UN ITS REF RANGE LAB DIAGNOSIS: 02 NEGATIVE FOR INTRAEPITHELIAL LESION OR MALIGNANCY. Specimen adequacy: 02 Satisfactory for evaluation. Endocervical and/or squamous metaplastic cells (endocervical component) are present. Performed by: David Kam, Ordnance Engineer ([facility]) . 02 Note: Note 02 The [...] High,A-Abnormal,AA-Critical Abnormal Performed at: 02 WB [facility] [address] [place] [address] Aparna Solorzano MD, BRUSH-SPATULA CERVIX [facility] CBC W Auto Differential pane l (Bld)on 05-19-2024 Basophils (Bld) [#/Vol] 0.08 10*3/uL [facility] Basophils/100 WBC (Bld) 0.6 % [facility] Differential cell count method Nom (Bld) Auto [facility] Eosinophils (Bld) [#/Vol] 0.17 10*3/uL [facility] Eosinophils/100 WBC (Bld) 1.2 % [facility] Erythrocyte distribution width (RBC) [Ratio] 14.3 % 11.5 - 15.0 % [facility] Hematocrit (Bld) [Volume fraction] 39.8 % 36.0 - 46.0 % [facility] Hemoglobin (Bld) [Mass/Vol] 13.4 g/dL 11.5 - 15.5 g/dL [facility] Immature granulocytes (Bld) [#/Vol] 0.13 10*3/uL High [facility] Immature granulocytes/100 WBC (Bld) 0.9 % [facility] Interpretation and review of laboratory results Abnormal [facility] Lymphocytes (Bld) [#/Vol] 2.96 10*3/uL [facility] Lymphocytes/100 WBC (Bld) 20.5 % [facility] MCH (RBC) [Entitic mass] 31.1 pg 26.0 - 34.0 pg [facility] MCHC (RBC) [Mass/Vol] 33.7 g/dL 30.5 - 36.0 g/dL [facility] MCV (RBC) [Entitic vol] 92.3 fL 80.0 - 100.0 fL [facility] Monocytes (Bld) [#/Vol] 0.87 10*3/uL High [facility] Monocytes/100 WBC (Bld) 6.0 % [facility] Neutrophils (Bld) [#/Vol] 10.20 10*3/uL High [facility] Neutrophils/100 WBC (Bld) 70.8 % [facility] Nucleated RBC (Bld) [#/Vol] NINF [facility] Nucleated RBC/100 WBC (Bld) [Ratio] 0.0 % /100 WBC [facility] Platelet mean volume (Bld) [Entitic vol] 10.1 fL 9.0 - 12.7 fL [facility] Platelets (Bld) [#/Vol] 303 10*3/uL [facility] RBC (Bld) [#/Vol] 4.31 10*6/uL 3.90 - 5.2 0 m/uL [facility] WBC (Bld) [#/Vol] 14.41 10*3/uL High [facility] Basophils (Bld) [#/Vol] 0.08 10*3/uL Normal <0.11 [facility] Comment on above: Order Comment: Speci men Type: BLOOD SPECIMENOrdering Facility: [facility] Address: [address] [place] [address] Performed By: #### 5 7021-8 ####[facility] [id number] [place] [address] Basophils/100 WBC (Bld) 0.6 % Normal [facility] Comment on above: Order Comment: Speci men Type: BLOOD SPECIMENOrdering Facility: [facility] Address: [address] [place] [address] Performed By: #### 5 7021-8 ####[facility] [id number] [place] [address] Differential cell count method Nom (Bld) Auto Normal [facility] Comment on above: Order Comment: Speci men Type: BLOOD SPECIMENOrdering Facility: [facility] Address: [address] [place] [address] Performed By: #### 5 7021-8 ####[facility] [id number] [place] [address] Eosinophils (Bld) [#/Vol] 0.17 10*3/uL Normal <0.46 [facility] Comment on above: Order Comment: Speci men Type: BLOOD SPECIMENOrdering Facility: [facility] Address: [address] [place] [address] Performed By: #### 5 7021-8 ####[facility] [id number] [place] [address] Eosinophils/100 WBC (Bld) 1.2 % Normal [facility] Comment on above: Order Comment: Speci men Type: BLOOD SPECIMENOrdering Facility: [facility] Address: [address] [place] [address] Performed By: #### 5 7021-8 ####[facility] [id number] [place] [address] Erythrocyte distribution width (RBC) [Ratio] 14.3 % Normal 11.5-15.0 [facility] Comment on above: Order Comment: Speci men Type: BLOOD SPECIMENOrdering Facility: [facility] Address: [address] [place] [address] Performed By: #### 5 7021-8 ####[facility] [id number] [place] [address] Hematocrit (Bld) [Volume fraction] 39.8 % Normal 36.0-46.0 [facility] Comment on above: Order Comment: Speci men Type: BLOOD SPECIMENOrdering Facility: [facility] Address: [address] [place] [address] Performed By: #### 5 7021-8 ####[facility] [id number] [place] [address] Hemoglobin (Bld) [Mass/Vol] 13.4 g/dL Normal 11.5-15.5 [facility] Comment on above: Order Comment: Speci men Type: BLOOD SPECIMENOrdering Facility: [facility] Address: [address] [place] [address] Performed By: #### 5 7021-8 ####[facility] [id number] [place] [address] Immature granulocytes (Bld) [#/Vol] 0.13 10*3/uL High <0.10 [facility] Comment on above: Order Comment: Speci men Type: BLOOD SPECIMENOrdering Facility: [facility] Address: [address] [place] [address] Performed By: #### 5 7021-8 ####[facility] [id number] [place] [address] Immature granulocytes/100 WBC (Bld) 0.9 % Normal [facility] Comment on above: Order Comment: Speci men Type: BLOOD SPECIMENOrdering Facility: [facility] Address: [address] [place] [address] Performed By: #### 5 7021-8 ####[facility] [id number] [place] [address] Lymphocytes (Bld) [#/Vol] 2.96 10*3/uL Normal 1.00-4.00 [facility] Comment on above: Order Comment: Speci men Type: BLOOD SPECIMENOrdering Facility: [facility] Address: [address] [place] [address] Performed By: #### 5 7021-8 ####[facility] [id number] [place] [address] Lymphocytes/100 WBC (Bld) 20.5 % Normal [facility] Comment on above: Order Comment: Speci men Type: BLOOD SPECIMENOrdering Facility: [facility] Address: [address] [place] [address] Performed By: #### 5 7021-8 ####[facility] [id number] [place] [address] MCH (RBC) [Entitic mass] 31.1 pg Normal 26.0-34.0 [facility] Comment on above: Order Comment: Speci men Type: BLOOD SPECIMENOrdering Facility: [facility] Address: [address] [place] [address] Performed By: #### 5 7021-8 ####[facility]CL[facility] [id number] [place] [address] MCHC (RBC) [Mass/Vol] 33.7 g/dL Normal 30.5-36.0 [facility] Comment on above: Order Comment: Speci men Type: BLOOD SPECIMENOrdering Facility: [facility] Address: [address] [place] [address] Performed By: #### 5 7021-8 ####[facility]CL[facility] [id number] [place] [address] MCV (RBC) [Entitic vol] 92.3 fL Normal 80.0-100.0 [facility] Comment on above: Order Comment: Speci men Type: BLOOD SPECIMENOrdering Facility: [facility] Address: [address] [place] [address] Performed By: #### 5 7021-8 ####[facility] [id number] [place] [address] Monocytes (Bld) [#/Vol] 0.87 10*3/uL High <0.87 [facility] Comment on above: Order Comment: Speci men Type: BLOOD SPECIMENOrdering Facility: [facility] Address: [address] [place] [address] Performed By: #### 5 7021-8 ####[facility]CL[facility] [id number] [place] [address] Monocytes/100 WBC (Bld) 6.0 % Normal [facility] Comment on above: Order Comment: Speci men Type: BLOOD SPECIMENOrdering Facility: [facility] Address: [address] [place] [address] Performed By: #### 5 7021-8 ####[facility] [id number] [place] [address] Neutrophils (Bld) [#/Vol] 10.20 10*3/uL High 1.45-7.50 [facility] Comment on above: Order Comment: Speci men Type: BLOOD SPECIMENOrdering Facility: [facility] Address: [address] [place] [address] Performed By: #### 5 7021-8 ####[facility] [id number] [place] [address] Neutrophils/100 WBC (Bld) 70.8 % Normal [facility] Comment on above: Order Comment: Speci men Type: BLOOD SPECIMENOrdering Facility: [facility] Address: [address] [place] [address] Performed By: #### 5 7021-8 ####[facility]CL[facility] [id number] [place] [address] Nucleated RBC (Bld) [#/Vol] 10*3/uL Normal <0.01 [facility] Comment on above: Order Comment: Speci men Type: BLOOD SPECIMENOrdering Facility: [facility] Address: [address] [place] [address] Performed By: #### 5 7021-8 ####[facility]CLIA [id number] [place] [address] Nucleated RBC/100 WBC (Bld) [Ratio] 0.0 /100 WBC Normal [facility] Comment on above: Order Comment: Speci men Type: BLOOD SPECIMENOrdering Facility: [facility] Address: [address] [place] [address] Performed By: #### 5 7021-8 ####[facility]CL[facility] [id number] [place] [address] Platelet mean volume (Bld) [Entitic vol] 10.1 fL Normal 9.0-12.7 [facility] Comment on above: Order Comment: Speci men Type: BLOOD SPECIMENOrdering Facility: [facility] Address: [address] [place] [address] Performed By: #### 5 7021-8 ####[facility] [id number] [place] [address] Platelets (Bld) [#/Vol] 303 10*3/uL Normal 150-400 [facility] Comment on above: Order Comment: Speci men Type: BLOOD SPECIMENOrdering Facility: [facility] Address: [address] [place] [address] Performed By: #### 5 7021-8 ####[facility]CLIA [id number] [place] [address] RBC (Bld) [#/Vol] 4.31 10*6/uL Normal 3.90-5.20 [facility] Comment on above: Order Comment: Speci men Type: BLOOD SPECIMENOrdering Facility: [facility] Address: [address] [place] [address] Performed By: #### 5 7021-8 ####[facility]CL[facility] [id number] [place] [address] WBC (Bld) [#/Vol] 14.41 10*3/uL High 3.70-11.00 [facility] Comment on above: Order Comment: Speci men Type: BLOOD SPECIMENOrdering Facility: [facility] Address: [address] [place] [address] Performed By: #### 5 7021-8 ####[facility]CL[facility] [id number] [place] [address] Comprehensive metabolic 2000 panelon 05-19-2024 Albumin [Mass/Vol] 4.0 g/dL 3.9 - 4.9 g/dL [facility] ALP [Catalytic activity/Vol] 79 U/L 34 - 123 U/L [facility] ALT [Catalytic activity/Vol] 25 U/L 7 - 38 U/L [facility] Anion gap [Moles/Vol] 14 mmol/L 8 - 15 mmol/L [facility] AST [Catalytic activity/Vol] 12 U/L Low 13 - 35 U/L [facility] Bilirubin [Mass/Vol] mg/dL Low 0.2 - 1 .3 mg/dL [facility] Calcium [Mass/Vol] 9.4 mg/dL 8.5 - 10. 2 mg/dL [facility] Chloride [Moles/Vol] 105 mmol/L 98 - 10 7 mmol/L [facility] CO2 [Moles/Vol] 21 mmol/L Low 22 - 30 mmol/L [facility] Creatinine [Mass/Vol] 0.49 mg/dL Low 0.58 - 0.96 mg/dL [facility] GFR/1.73 sq M.predicted among non-blacks MDRD (S/P/Bld) [Vol rate/Area] 120 mL/min/{1.73_m2} - PINF [facility] Comment on above: Estimated Glomerular Filtration [...] 155 mg/dL High 74 - 99 mg/dL [facility] Comment on above: The [place] Diab[employer] s Association (ADA) provides guidance for [...] Standards of Medical Care in Diabetes 2016, [place] [employer]. Diabetes Care. 2016.39(Suppl 1). Interpretation and review of laboratory results Abnormal [facility] Potassium [Moles/Vol] 3.8 mmol/L 3.7 - 5.1 mmol/L [facility] Protein [Mass/Vol] 6.6 g/dL 6.3 - 8.0 g/dL [facility] Sodium [Moles/Vol] 140 mmol/L 136 - 144 mmol/L [facility] Urea nitrogen [Mass/Vol] 12 mg/dL 7 - 21 mg/dL [facility] Albumin [Mass/Vol] 4.0 g/dL Normal 3.9-4.9 [facility] Comment on above: Order Comment: Speci men Type: BLOOD SPECIMENOrdering Facility: [facility] Address: [address] [place] [address] Performed By: #### 2 4323-8 ####[facility] LABCLIA [id number] [place] [address] [place] ALP [Catalytic activity/Vol] 79 U/L Normal 34-123 [facility] Comment on above: Order Comment: Speci men Type: BLOOD SPECIMENOrdering Facility: [facility] Address: [address] [place] [address] Performed By: #### 2 4323-8 ####[facility] LABCLIA [id number] [place] [address] [place] ALT [Catalytic activity/Vol] 25 U/L Normal 7-38 [facility] Comment on above: Order Comment: Speci men Type: BLOOD SPECIMENOrdering Facility: [facility] Address: [address] [place] [address] Performed By: #### 2 4323-8 ####[facility] LABCLIA [id number] [place] [address] [place] Anion gap [Moles/Vol] 14 mmol/L Normal 8-15 [facility] Comment on above: Order Comment: Speci men Type: BLOOD SPECIMENOrdering Facility: [facility] Address: [address] [place] [address] Performed By: #### 2 4323-8 ####[facility] LABCLIA [id number] [place] [address] [place] AST [Catalytic activity/Vol] 12 U/L Low 13-35 [facility] Comment on above: Order Comment: Speci men Type: BLOOD SPECIMENOrdering Facility: [facility] Address: [address] [place], [place] [address] Performed By: #### 2 4323-8 ####[facility] LABCLIA [id number] [place] [address] [place] Bilirubin [Mass/Vol] mg/dL Low 0.2-1.3 [facility] Comment on above: Order Comment: Speci men Type: BLOOD SPECIMENOrdering Facility: [facility] Address: [address] [place], [place] [address] Performed By: #### 2 4323-8 ####[facility] LABCLIA [id number] [place] [address] [place] Calcium [Mass/Vol] 9.4 mg/dL Normal 8.5-10.2 [facility] Comment on above: Order Comment: Speci men Type: BLOOD SPECIMENOrdering Facility: [facility] Address: [address] [place] [address] Performed By: #### 2 4323-8 ####[facility] LABCLIA [id number] [place] [address] [place] Chloride [Moles/Vol] 105 mmol/L Normal 98-107 [facility] Comment on above: Order Comment: Speci men Type: BLOOD SPECIMENOrdering Facility: [facility] Address: [address] [place] [address] Performed By: #### 2 4323-8 ####[facility] LABCLIA [id number] [place] [id number] [place] CO2 [Moles/Vol] 21 mmol/L Low 22-30 [facility] Comment on above: Order Comment: Speci men Type: BLOOD SPECIMENOrdering Facility: [facility] Address: [address] [place], [place] [address] Performed By: #### 2 4323-8 ####[facility] LABCLIA [id number] [place] [address] [place] Creatinine [Mass/Vol] 0.49 mg/dL Low 0.58-0.96 [facility] Comment on above: Order Comment: Semaj cortés Type: BLOOD SPECIMENOrdering Facility: [facility] Address: [address] [place] [address] Performed By: #### 2 4323-8 ####[facility] LABIA [id number] [address] OF [facility] Creatinine and Glomerular filtration rate.predicted panel (S/P/Bld) 120 mL/min/1.73m??? Normal >=60 [facility] Comment on above: Order Comment: Semaj cortés Type: BLOOD SPECIMENOrdering Facility: [facility] Address: [address] [place] [address] Result Comment: Erin mated Glomerular Filtration Rate [...] 2 4323-8 ####[facility] LABCLIA [id number] [place] [address] [place] Glucose [Mass/Vol] 155 mg/dL High 74-99 [facility] Comment on above: Order Comment: Semaj cortés Type: BLOOD SPECIMENOrdering Facility: [facility] Address: [address] [place] [address] Result Comment: The [place] Diabetes Association (ADA) provides guidance for cutoff [...] Standards of Medical Care in Diabetes 2016, [place] [employer]. Diabetes Care. 2016.39(Suppl 1). Performed By: #### 2 4323-8 ####[facility] LABCLIA [id number] [address] [address] [place] Potassium [Moles/Vol] 3.8 mmol/L Normal 3.7-5.1 [facility] Comment on above: Order Comment: Speci men Type: BLOOD SPECIMENOrdering Facility: [facility] Address: [address] [place] [address] Performed By: #### 2 4323-8 ####[facility] LABIA [id number] [place] [address] [place] Protein [Mass/Vol] 6.6 g/dL Normal 6.3-8.0 [facility] Comment on above: Order Comment: Speci men Type: BLOOD SPECIMENOrdering Facility: [facility] Address: [address] [place] [address] Performed By: #### 2 4323-8 ####[facility] LABIA [id number] [place] [id number] [place] Sodium [Moles/Vol] 140 mmol/L Normal 136-144 [facility] Comment on above: Order Comment: Speci men Type: BLOOD SPECIMENOrdering Facility: [facility] Address: [address] [place] [address] Performed By: #### 2 4323-8 ####[facility] LABCLIA [id number] [place] [address] [place] Urea nitrogen [Mass/Vol] 12 mg/dL Normal 7-21 [facility] Comment on above: Order Comment: Speci men Type: BLOOD SPECIMENOrdering Facility: [facility] Address: [address] [place] [address] Performed By: #### 2 4323-8 ####[facility] LABIA [id number] [place] [address] [place] ESR Westergren method (Bld) [Velocity]on 05-19-2024 ESR (Bld) [Velocity] 21 mm/h High [facility] Interpretation and review of laboratory results Abnormal [facility] ESR (Bld) [Velocity] 21 mm/h High 0-20 [facility] Comment on above: Order Comment: Speci men Type: BLOOD SPECIMENOrdering Facility: [facility] Address: [address] [place] [address] Performed By: #### 4 537-7 ####[facility] LABIA [id number] [place] [address] [place] FERRITIN BLDon 05-19-2024 Ferritin [Mass/Vol] 20.6 ng/mL 14.7 - 2 05.1 ng/mL [facility] FOLATE SERUMon 05-19-2024 Folate [Mass/Vol] 11.1 ng/mL 4.7 - PINF ng/mL [facility] Ferritin SerPl-mCncon 2023 Ferritin [Mass/Vol] 20.6 ng/mL Normal 14.7-205.1 [facility] Comment on above: Order Comment: Speci men Type: BLOOD SPECIMENOrdering Facility: [facility] Address: [address] [place] [address] Performed By: #### 5 0190-8, 2276-4, 2284-8, 2132-9 ####[facility] LABIA [id number] [place] [address] [place] Folate SerPl-mCncon 05-19-20 Folate [Mass/Vol] 11.1 ng/mL Normal >4.7 [facility] Comment on above: Order Comment: Speci men Type: BLOOD SPECIMENOrdering Facility: [facility] Address: [address] [place] [address] Performed By: #### 5 0190-8, 2275-4, 2283-12, 2132-01 ####[facility] LABCLIA [id number] [place] [id number] [place] Iron and Iron binding capaci ty panelon 05-19-2024 Interpretation and review of laboratory results Abnormal [facility] Iron [Mass/Vol] 47 ug/dL 41 - 186 ug/dL [facility] Iron binding capacity [Mass/Vol] 420 ug/dL High 232 - 386 ug/dL [facility] Iron/TIBC [Molar ratio] 11.2 % Low 15.0 - 57.0 % [facility] Iron [Mass/Vol] 47 ug/dL Normal 41-186 [facility] Comment on above: Order Comment: Speci men Type: BLOOD SPECIMENOrdering Facility: [facility] Address: [address] [place] [address] Performed By: #### 5 0190-8, 2275-08, 2283-12, 2132-01 ####[facility] LABCLIA [id number] [place] [address] [place] Iron binding capacity [Mass/Vol] 420 ug/dL High 232-386 [facility] Comment on above: Order Comment: Speci men Type: BLOOD SPECIMENOrdering Facility: [facility] Address: [address] [place] [address] Performed By: #### 5 0190-8, 4, 2283-12, 2132-01 ####[facility] LABCLIA [id number] [place] [address] [place] Iron/TIBC [Molar ratio] 11.2 % Low 15.0-57.0 [facility] Comment on above: Order Comment: Speci men Type: BLOOD SPECIMENOrdering Facility: [facility] Address: [address] [place] [address] Performed By: #### 5 0190-8, 2275-4, 8, 2132-01 ####[facility] LABCLIA [id number] [place] [id number] [place] No Panel Informationon 05-19 Interpretation and review of laboratory results Normal [facility] VITAMIN B12 BLOODon 05-19-20 24 Cobalamin (Vitamin B12) [Mass/Vol] 632 pg/mL 232 - 1245 pg/mL [facility] Vit B12 SerPl-mCncon 024 Cobalamin (Vitamin B12) [Mass/Vol] 632 pg/mL Normal 232-1245 [facility] Comment on above: Order Comment: Speci men Type: BLOOD SPECIMENOrdering Facility: [facility] Address: [address] [place] [address] Performed By: #### 5 0190-8, 2276-4, 2284-8, 2132-9 ####[facility] LABCLIA [id number] [place] [id number] [place] CNNURSEon 04-26-2024 CNNURSE Normal [facility] CNPNon 04-10-2024 CNPN Normal [facility] ALL CBC WITH AUTO DIFFon BASOPHILS ABSOLUTE AUTO 0.1 [facility] Basophils/100 WBC (Bld) 0.4 % 0.2 - 2.0 % [facility] Eosinophils/100 WBC (Bld) 0.4 % Low 0.9 - 7.0 % [facility] Erythrocyte distribution width (RBC) [Ratio] 15.1 % High 11.0 - 15.0 % [facility] Hematocrit (Bld) [Volume fraction] 39.7 % 36.0 - 48.0 % [facility] Hemoglobin (Bld) [Mass/Vol] 13 g/dL 12.0 - 16.0 g/dL [facility] IMMATURE GRANULOCYTES ABS AUTO 0.1 High [facility] Immature granulocytes/100 WBC (Bld) 0.9 % High 0.0 - 0.5 % [facility] [facility] Interpretation and review of laboratory results Abnormal [facility] LYMPHOCYTES ABSOLUTE AUTO 2.1 [facility] Lymphocytes/100 WBC (Bld) 18.4 % Low 20.5 - 60.0 % [facility] MCH (RBC) [Entitic mass] 30.9 pg 26.7 - 34.0 pg [facility] MCHC (RBC) [Mass/Vol] 32.7 g/dL 29.9 - 35.2 g/dL [facility] MCV (RBC) [Entitic vol] 94.3 fL 81.0 - 99.0 fL [facility] MONOCYTES ABSOLUTE AUTO 0.8 [facility] Monocytes/100 WBC (Bld) 6.7 % 1.7 - 12.0 % [facility] NEUTROPHILS ABSOLUTE AUTO 8.3 High [facility] Neutrophils/100 WBC (Bld) 73.2 % 43.0 - 75.0 % [facility] Platelet mean volume (Bld) [Entitic vol] 10.1 fL 9.5 - 13.5 fL [facility] TBH EO # 0.1 [facility] TB PLT 326 [facility] RBC 4.21 [facility] WBC 11.4 High [facility] ALL THYROID STIM HORMONEon 1 06-06-2023 Interpretation and review of laboratory results Abnormal [facility] TSH Qn 0.333 m[IU]/L Low [facility] ALL THYROXINE (T4) FREEon Free T4 [Mass/Vol] 1.01 ng/dL 0.76 - 1. 46 ng/dL [facility] CCF APTTon 04-06-2024 aPTT Coag (Bld) [Time] 25.6 s [facility] MLR HEMOGLOBIN A1Con 024 Glucose [Mass/Vol] 134 mg/dL [facility] HbA1c (Bld) [Mass fraction] 6.3 % High 4.5 - 6.2 % [facility] Comment on above: ADA RECOMMENDED LIMI T 4.0 - 6.0 ADA THERAPEUTIC TARGET < 7.0 ACTION SUGGESTED > 7.0 Interpretation and review of laboratory results Abnormal [facility] No Panel Informationon 04-06 [facility] SRMCOH PROTHROMBIN TIME INR W/O COUMon 04-06-2024 PT Coag (PPP) [Time] 9.6 s [facility] INR <0.93 [facility] Comment on above: DESIRED INR: 2.0-3.0 CONDITIONS NOT LISTED BELOW 2.5-3.5 FOR PROSTHETIC HEART VALVE REPLACEMENT 2.5-3.5 RECURRENT THROMBOSIS TBH PREG QUANT HCGon 024 HCG QUANTITATIVE <1 mIU/mL [facility] Comment on above: 5-50 0.2-1 WEEK 50-500 1-2 WEEKS 100-5,000 2-3 WEEKS 500-10,000 3-4 WEEKS 1,000-50,000 4-5 WEEKS 10,000-100,000 5-6 WEEKS 15,000-200,000 6-8 WEEKS 10,000-100,000 2-3 MONTHS CNPNon 04-02-2024 CNPN Normal [facility] 25(OH)D3 SerPl-mCncon 2023 25-hydroxyvitamin D3 [Mass/Vol] 19.9 ng/mL Low 31.0-80.0 [facility] Comment on above: Order Comment: Speci men Type: BLOOD SPECIMENOrdering Facility: [facility] Address: [address] [place] [address] Result Comment: Clas sification of 25 [place] Vitamin D status:Deficiency/Insufficiency: < or = 30 ng/ml.Sufficiency/Optimal Levels: 31-80 ng/mLToxicity: > 100 ng/mL.Test performed by chemiluminescent immunoassay. Performed By: #### 1 989-3 ####[facility] LABIA [id number] [place] [address] [place] [facility] BLOOD TB SCREENon 03-23-2024 M. tuberculosis tuberculin stim IFN-g Ql (Bld) Negative Normal [facility] Comment on above: Order Comment: Speci men Type: BLOOD SPECIMENOrdering Facility: [facility] Address: [address] [place] [address] Performed By: #### I NFTBP ####[facility] LABCLIA [id number] [place] [address] [place] MITOGEN MINUS NIL >10.00 Normal >=0.50 [facility] Comment on above: Order Comment: Speci men Type: BLOOD SPECIMENOrdering Facility: [facility] Address: [address] [place] [address] Performed By: #### I NFTBP ####[facility] LABCLIA [id number] [place] [address] [place] TB GAMMA INTERPRETATION Normal [facility] Comment on above: Order Comment: Speci men Type: BLOOD SPECIMENOrdering Facility: [facility] Address: [address] [place] [address] Performed By: #### I NFTBP ####[facility] LABCLIA [id number] [place] [address] [place] TB NIL <0.00 Normal <=8.00 [facility] Comment on above: Order Comment: Speci men Type: BLOOD SPECIMENOrdering Facility: [facility] Address: [address] [place] [address] Performed By: #### I NFTBP ####[facility] LABCLIA [id number] [place] [address] [place] TB1 AG MINUS NIL 0.00 IU/mL Normal <0.35 [facility] Comment on above: Order Comment: Speci men Type: BLOOD SPECIMENOrdering Facility: [facility] Address: [address] [place] [address] Performed By: #### I NFTBP ####[facility] LABCLIA [id number] [place] [address] [place] TB2 AG MINUS NIL 0.00 IU/mL Normal <0.35 [facility] Comment on above: Order Comment: Speci men Type: BLOOD SPECIMENOrdering Facility: [facility] Address: [address] [place] [address] Performed By: #### I NFTBP ####[facility] LABCLIA [id number] [place] [address] [place] Bacteria Bld Culton 03-23-20 24 Bacteria identified Cx Nom (Bld) CULTURE, BLOOD: No growth 5 days Normal [facility] Comment on above: Performed By: #### 6 00-7 ####[facility] LABCLIA [id number] [place] [place] [id number] [place] CBC W Auto Differential pane l (Bld)on 03-23-2024 Basophils (Bld) [#/Vol] 0.06 10*3/uL Normal <0.11 [facility] Comment on above: Order Comment: Speci men Type: BLOOD SPECIMENOrdering Facility: [facility] Address: [address] [place] [address] Performed By: #### 5 7021-8 ####[facility] LABIA [id number] [place] [address] Basophils/100 WBC (Bld) 0.5 % Normal [facility] Comment on above: Order Comment: Speci men Type: BLOOD SPECIMENOrdering Facility: [facility] Address: [address] [place] [address] Performed By: #### 5 7021-8 ####[facility] LABIA [id number] [place] [address] Differential cell count method Nom (Bld) Auto Normal [facility] Comment on above: Order Comment: Speci men Type: BLOOD SPECIMENOrdering Facility: [facility] Address: [address] [place] [address] Performed By: #### 5 7021-8 ####[facility] LABIA [id number] [place] [address] Eosinophils (Bld) [#/Vol] 0.13 10*3/uL Normal <0.46 [facility] Comment on above: Order Comment: Speci men Type: BLOOD SPECIMENOrdering Facility: [facility] Address: [address] [place] [address] Performed By: #### 5 7021-8 ####[facility] LABIA [id number] [place] [address] Eosinophils/100 WBC (Bld) 1.0 % Normal [facility] Comment on above: Order Comment: Speci men Type: BLOOD SPECIMENOrdering Facility: [facility] Address: [address] [place] [address] Performed By: #### 5 7021-8 ####[facility] LABCLIA [id number] [place] [address] Erythrocyte distribution width (RBC) [Ratio] 15.2 % High 11.5-15.0 [facility] Comment on above: Order Comment: Speci men Type: BLOOD SPECIMENOrdering Facility: [facility] Address: [address] [place] [address] Performed By: #### 5 7021-8 ####[facility] LABCLIA [id number] [place] [address] Hematocrit (Bld) [Volume fraction] 39.3 % Normal 36.0-46.0 [facility] Comment on above: Order Comment: Speci men Type: BLOOD SPECIMENOrdering Facility: [facility] Address: [address] [place] [address] Performed By: #### 5 7021-8 ####[facility] LABIA [id number] [place] [address] Hemoglobin (Bld) [Mass/Vol] 13.1 g/dL Normal 11.5-15.5 [facility] Comment on above: Order Comment: Speci men Type: BLOOD SPECIMENOrdering Facility: [facility] Address: [address] [place] [address] Performed By: #### 5 7021-8 ####[facility] LABCLIA [id number] [place] [address] Immature granulocytes (Bld) [#/Vol] 0.12 10*3/uL High <0.10 [facility] Comment on above: Order Comment: Speci men Type: BLOOD SPECIMENOrdering Facility: [facility] Address: [address] [place] [address] Performed By: #### 5 7021-8 ####[facility] LABCLIA [id number] [place] [address] Immature granulocytes/100 WBC (Bld) 0.9 % Normal [facility] Comment on above: Order Comment: Speci men Type: BLOOD SPECIMENOrdering Facility: [facility] Address: [address] [place] [address] Performed By: #### 5 7021-8 ####[facility] LABCLIA [id number] [place] [address] Lymphocytes (Bld) [#/Vol] 2.03 10*3/uL Normal 1.00-4.00 [facility] Comment on above: Order Comment: Speci men Type: BLOOD SPECIMENOrdering Facility: [facility] Address: [address] [place] [address] Performed By: #### 5 7021-8 ####[facility] LABCLIA [id number] [place] [address] Lymphocytes/100 WBC (Bld) 15.7 % Normal [facility] Comment on above: Order Comment: Speci men Type: BLOOD SPECIMENOrdering Facility: [facility] Address: [address] [place] [address] Performed By: #### 5 7021-8 ####[facility] LABCLIA [id number] [place] [address] MCH (RBC) [Entitic mass] 31.3 pg Normal 26.0-34.0 [facility] Comment on above: Order Comment: Speci men Type: BLOOD SPECIMENOrdering Facility: [facility] Address: [address] [place] [address] Performed By: #### 5 7021-8 ####[facility] LABCLIA [id number] [place] [address] MCHC (RBC) [Mass/Vol] 33.3 g/dL Normal 30.5-36.0 [facility] Comment on above: Order Comment: Speci men Type: BLOOD SPECIMENOrdering Facility: [facility] Address: [address] [place] [address] Performed By: #### 5 7021-8 ####[facility] LABCLIA [id number] [place] [address] MCV (RBC) [Entitic vol] 93.8 fL Normal 80.0-100.0 [facility] Comment on above: Order Comment: Speci men Type: BLOOD SPECIMENOrdering Facility: [facility] Address: [address] [place] [address] Performed By: #### 5 7021-8 ####[facility] LABCLIA [id number] [place] [address] Monocytes (Bld) [#/Vol] 0.65 10*3/uL Normal <0.87 [facility] Comment on above: Order Comment: Speci men Type: BLOOD SPECIMENOrdering Facility: [facility] Address: [address] [place] [address] Performed By: #### 5 7021-8 ####[facility] LABCLIA [id number] [place] [address] Monocytes/100 WBC (Bld) 5.0 % Normal [facility] Comment on above: Order Comment: Speci men Type: BLOOD SPECIMENOrdering Facility: [facility] Address: [address] [place] [address] Performed By: #### 5 7021-8 ####[facility] LABCLIA [id number] [place] [address] Neutrophils (Bld) [#/Vol] 9.90 10*3/uL High 1.45-7.50 [facility] Comment on above: Order Comment: Speci men Type: BLOOD SPECIMENOrdering Facility: [facility] Address: [address] [place] [address] Performed By: #### 5 7021-8 ####[facility] LABCLIA [id number] [place] [address] Neutrophils/100 WBC (Bld) 76.9 % Normal [facility] Comment on above: Order Comment: Speci men Type: BLOOD SPECIMENOrdering Facility: [facility] Address: [address] [place] [address] Performed By: #### 5 7021-8 ####[facility] LABCLIA [id number] [place] [address] Nucleated RBC (Bld) [#/Vol] 10*3/uL Normal <0.01 [facility] Comment on above: Order Comment: Speci men Type: BLOOD SPECIMENOrdering Facility: [facility] Address: [address] [place] [address] Performed By: #### 5 7021-8 ####[facility] LABCLIA [id number] [place] [address] Nucleated RBC/100 WBC (Bld) [Ratio] 0.0 /100 WBC Normal [facility] Comment on above: Order Comment: Speci men Type: BLOOD SPECIMENOrdering Facility: [facility] Address: [address] [place] [address] Performed By: #### 5 7021-8 ####[facility] LABCLIA [id number] [place] [address] Platelet mean volume (Bld) [Entitic vol] 10.0 fL Normal 9.0-12.7 [facility] Comment on above: Order Comment: Speci men Type: BLOOD SPECIMENOrdering Facility: [facility] Address: [address] [place] [address] Performed By: #### 5 7021-8 ####[facility] LABCLIA [id number] [place] [address] Platelets (Bld) [#/Vol] 262 10*3/uL Normal 150-400 [facility] Comment on above: Order Comment: Speci men Type: BLOOD SPECIMENOrdering Facility: [facility] Address: [address] [place] [address] Performed By: #### 5 7021-8 ####[facility] LABCLIA [id number] [place] [address] RBC (Bld) [#/Vol] 4.19 10*6/uL Normal 3.90-5.20 [facility] Comment on above: Order Comment: Speci men Type: BLOOD SPECIMENOrdering Facility: [facility] Address: [address] [place] [address] Performed By: #### 5 7021-8 ####[facility] LABCLIA [id number] [place] [address] WBC (Bld) [#/Vol] 12.89 10*3/uL High 3.70-11.00 [facility] Comment on above: Order Comment: Speci men Type: BLOOD SPECIMENOrdering Facility: [facility] Address: [address] [place] [address] Performed By: #### 5 7021-8 ####[facility] LABCLIA [id number] [place] [address] CNNURSEon 03-23-2024 CNNURSE Normal [facility] CRP SerPl-mCncon 03-23-2024 CRP [Mass/Vol] 0.3 mg/dL Normal <0.9 [facility] Comment on above: Order Comment: Speci men Type: BLOOD SPECIMENOrdering Facility: [facility] Address: [address] [place] [address] Performed By: #### 5 0190-8, 2276-4, 1987-09 ####[facility] LABCLIA [id number] [place] [id number] [place] Comprehensive metabolic 2000 panelon 03-23-2024 Albumin [Mass/Vol] 3.9 g/dL Normal 3.9-4.9 [facility] Comment on above: Order Comment: Speci men Type: BLOOD SPECIMENOrdering Facility: [facility] Address: [address] [place] [address] Performed By: #### 2 4323-8 ####[facility] LABCLIA [id number] [place] [address] [place] ALP [Catalytic activity/Vol] 70 U/L Normal 34-123 [facility] Comment on above: Order Comment: Speci men Type: BLOOD SPECIMENOrdering Facility: [facility] Address: [address] [place] [address] Performed By: #### 2 4323-8 ####[facility] LABCLIA [id number] [place] [address] [place] ALT [Catalytic activity/Vol] 27 U/L Normal 7-38 [facility] Comment on above: Order Comment: Speci men Type: BLOOD SPECIMENOrdering Facility: [facility] Address: [address] [place] [address] Performed By: #### 2 4323-8 ####[facility] LABCLIA [id number] [place] [address] [place] Anion gap [Moles/Vol] 15 mmol/L Normal 8-15 [facility] Comment on above: Order Comment: Speci men Type: BLOOD SPECIMENOrdering Facility: [facility] Address: [address] [place] [address] Performed By: #### 2 4323-8 ####[facility] LABCLIA [id number] [place] [address] [place] AST [Catalytic activity/Vol] 20 U/L Normal 13-35 [facility] Comment on above: Order Comment: Speci men Type: BLOOD SPECIMENOrdering Facility: [facility] Address: [address] [place], [place] [address] Performed By: #### 2 4323-8 ####[facility] LABCLIA [id number] [place] [address] [place] Bilirubin [Mass/Vol] mg/dL Low 0.2-1.3 [facility] Comment on above: Order Comment: Speci men Type: BLOOD SPECIMENOrdering Facility: [facility] Address: [address] [place] [id number] Performed By: #### 2 4323-8 ####[facility] LABCLIA [id number] [place] [address] [place] Calcium [Mass/Vol] 9.2 mg/dL Normal 8.5-10.2 [facility] Comment on above: Order Comment: Speci men Type: BLOOD SPECIMENOrdering Facility: [facility] Address: [address] [place], [place] [address] Performed By: #### 2 4323-8 ####[facility] LABCLIA [id number] [place] [address] [place] Chloride [Moles/Vol] 104 mmol/L Normal 98-107 [facility] Comment on above: Order Comment: Speci men Type: BLOOD SPECIMENOrdering Facility: [facility] Address: [address] [place] [address] Performed By: #### 2 4323-8 ####[facility] LABCLIA [id number] [place] [address] [place] CO2 [Moles/Vol] 20 mmol/L Low 22-30 [facility] Comment on above: Order Comment: Speci men Type: BLOOD SPECIMENOrdering Facility: [facility] Address: [address] [place], [place] [address] Performed By: #### 2 4323-8 ####[facility] LABCLIA [id number] [place] [id number] [place] Creatinine [Mass/Vol] 0.61 mg/dL Normal 0.58-0.96 [facility] Comment on above: Order Comment: Speci men Type: BLOOD SPECIMENOrdering Facility: [facility] Address: [address] [place], [place] [address] Performed By: #### 2 4323-8 ####[facility] LABCLIA [id number] [place] [id number] [place] Creatinine and Glomerular filtration rate.predicted panel (S/P/Bld) 114 mL/min/1.73m??? Normal >=60 [facility] Comment on above: Order Comment: Semaj cortés Type: BLOOD SPECIMENOrdering Facility: [facility] Address: [address] [place] [address] Result Comment: Erin mated Glomerular Filtration Rate [...] 2 4323-8 ####[facility] LABCLIA [id number] [place] [address] [place] Glucose [Mass/Vol] 152 mg/dL High 74-99 [facility] Comment on above: Order Comment: Semaj cortés Type: BLOOD SPECIMENOrdering Facility: [facility] Address: [address] [place] [address] Result Comment: The [place] [employer] (ADA) provides guidance for cutoff [...] Standards of Medical Care in Diabetes 2016, [place] [employer]. Diabetes Care. 2016.39(Suppl 1). Performed By: #### 2 4323-8 ####[facility] LABIA [id number] [place] [address] [place] Potassium [Moles/Vol] 4.3 mmol/L Normal 3.7-5.1 [facility] Comment on above: Order Comment: Speci men Type: BLOOD SPECIMENOrdering Facility: [facility] Address: [address] [place] [address] Performed By: #### 2 4323-8 ####[facility] LABCLIA [id number] [place] [address] [place] Protein [Mass/Vol] 6.6 g/dL Normal 6.3-8.0 [facility] Comment on above: Order Comment: Speci men Type: BLOOD SPECIMENOrdering Facility: [facility] Address: [address] [place] [address] Performed By: #### 2 4323-8 ####[facility] LABCLIA [id number] [place] [address] [place] Sodium [Moles/Vol] 139 mmol/L Normal 136-144 [facility] Comment on above: Order Comment: Speci men Type: BLOOD SPECIMENOrdering Facility: [facility] Address: [address] [place] [address] Performed By: #### 2 4323-8 ####[facility] LABCLIA [id number] [place] [address] [place] Urea nitrogen [Mass/Vol] 20 mg/dL Normal 7-21 [facility] Comment on above: Order Comment: Speci men Type: BLOOD SPECIMENOrdering Facility: [facility] Address: [address] [place] [address] Performed By: #### 2 4323-8 ####[facility] LABCLIA [id number] [place] [address] [place] ESR Westergren method (Bld) [Velocity]on 03-23-2024 ESR (Bld) [Velocity] 27 mm/h High 0-20 [facility] Comment on above: Order Comment: Speci men Type: BLOOD SPECIMENOrdering Facility: [facility] Address: [address] [place] [address] Performed By: #### 4 537-7 ####[facility] LABCLIA [id number] [place] [address] [place] Ferritin [facility] 2023 Ferritin [Mass/Vol] 33.3 ng/mL Normal 14.7-205.1 [facility] Comment on above: Order Comment: Speci men Type: BLOOD SPECIMENOrdering Facility: [facility] Address: [address] [place] [address] Performed By: #### 5 0190-8, 2276-4, 1987-09 ####[facility] LABIA [id number] [place] [address] [place] Folate SerPl-nc 03-23-20 Folate [Mass/Vol] 13.0 ng/mL Normal >4.7 [facility] Comment on above: Order Comment: Speci men Type: BLOOD SPECIMENOrdering Facility: [facility] Address: [address] [place] [address] Performed By: #### 2 132-9, 2284-8 ####[facility] LABIA [id number] [place] [address] [place] HCG ( test) Ql (U)o n 03-23-2024 Interpretation and review of laboratory results Normal [facility] Preg Test, Ur Negative Negative [facility] IMMUNOGLOBULINS,IGG,IGA,IGMo n 03-23-2024 IgA [Mass/Vol] 171 mg/dL Normal 70-400 [facility] Comment on above: Order Comment: Speci men Type: BLOOD SPECIMENOrdering Facility: [facility] Address: [address] [place] [address] Performed By: #### S ERIMM ####[facility] LABIA [id number] [place] [address] [place] IgG [Mass/Vol] 476 mg/dL Low 700-1600 [facility] Comment on above: Order Comment: Speci men Type: BLOOD SPECIMENOrdering Facility: [facility] Address: [address] [place] [address] Performed By: #### S ERIMM ####[facility] LABCLIA [id number] [place] [address] [place] IgM [Mass/Vol] 373 mg/dL High 40-230 [facility] Comment on above: Order Comment: Speci men Type: BLOOD SPECIMENOrdering Facility: [facility] Address: [address] [place] [address] Performed By: #### S ERIMM ####[facility] LABCLIA [id number] [place] [address] [place] Iron and Iron binding capaci ty panelon 03-23-2024 Iron [Mass/Vol] 67 ug/dL Normal 41-186 [facility] Comment on above: Order Comment: Speci men Type: BLOOD SPECIMENOrdering Facility: [facility] Address: [address] [place] [address] Performed By: #### 5 0190-8, 2275-08, 1987-09 ####[facility] LABIA [id number] [place] [address] [place] Iron binding capacity [Mass/Vol] 399 ug/dL High 232-386 [facility] Comment on above: Order Comment: Speci men Type: BLOOD SPECIMENOrdering Facility: [facility] Address: [address] [place] [address] Performed By: #### 5 0190-8, 2275-08, 1987-09 ####[facility] LABIA [id number] [place] [address] [place] Iron/TIBC [Molar ratio] 16.8 % Normal 15.0-57.0 [facility] Comment on above: Order Comment: Speci men Type: BLOOD SPECIMENOrdering Facility: [facility] Address: [address] [place] [address] Performed By: #### 5 0190-8, 2275-08, 1987- ####[facility] LABCLIA [id number] [place] [address] [place] Urinalysis macro (dipstick) panel (U)on 03-23-2024 Bilirubin, UA Negative Negative - 4(70) +++ mg/dL [facility] Blood, UA Positive Negative - 50 Dusty/mcL [facility] Comment on above: large Clarity, UA Cloudy [facility] Color, UA Dark Georgie [facility] Glucose, UA Positive Negative - 1999(110) ++++ mg/dL [facility] Comment on above: 100 mg Interpretation and review of laboratory results Abnormal [facility] Ketones, UA Negative Negative - 160(16) ++++ mg/dL [facility] Leukocytes, UA Positive Negative - 500+++ Andi/mcL [facility] Comment on above: small Nitrite, UA Negative Negative - Positive [facility] pH, UA 5.5 5 - 9 [facility] Protein, UA Positive Negative - 1999(20) ++++ mg/dL [facility] Comment on above: 30 mg Spec Grav, UA 1.03 1 - 1.03 [facility] Urobilinogen, UA 0.2 0.2 - 12 mg/dL [facility] Vit B12 [facility] 024 Cobalamin (Vitamin B12) [Mass/Vol] 607 pg/mL Normal 232-1245 [facility] Comment on above: Order Comment: Speci men Type: BLOOD SPECIMENOrdering Facility: [facility] Address: [address] [place] [address] Performed By: #### 2 132-9, 2284-8 ####[facility] LABCLIA [id number] [place] [address] [place] Office Visiton 03-08-2024 Follow-up visit [id number] Ariadna Haley 1980 F Date Provider Department Center 03/08/2024 Renny-CALOS MENDOZA [facility] History Problem Relation Age of Onset Heart failure Maternal Grandmother Heart attack Maternal Grandfather Family Status - Relation Status Age at Maternal Grandmother Maternal Grandfather Level of Service:37381 HI OFFICE/OUTPATIENT NEW MODERATE MDM 45 MINUTES Normal [facility] HCG ( test) IA.chandai d Ql (U)Ordered By: Adolfo Kang on 02-16-2024 HCG ( test) Ql (U) Negative [facility] HCG,Urineon 02-16-2024 Beta HCG ( test) Ql (U) Negative Normal [facility] Comment on above: Result Comment: PERF ORMED BY: [place] [address] PATHOLOGIST AREA INTELLIGENCE TECHNICIAN OFE CANNON M.D. Performed By: #### U HCG #### [address] ECG 12 Leadon 07-13-2023 ECG revealed normal sinus rhythm [facility] Work Phone: CBC AUTO DIFFon 09-24-2022 BASO # 0.1 103/ul Normal 0.0-0.1 [facility] Comment on above: Performed By: #### U AMIC #### [facility] [address] [address] [address] Manda York Basophils/100 WBC (Bld) 0.6 % Normal 0.2-2.0 [facility] Comment on above: Performed By: #### U AMIC #### [facility] [address] [address] [address] Manda York EO # 0.1 103/ul Normal 0.0-0.7 [facility] Comment on above: Performed By: #### U AMIC #### [facility] [address] [address] [address] Manda York Eosinophils/100 WBC (Bld) 0.6 % Critically low 0.9-7.0 [facility] Comment on above: Performed By: #### U AMIC #### [facility] [address] [address] [address] Manda York Erythrocyte distribution width (RBC) [Ratio] 14.6 % Normal 11.0-15.0 [facility] Comment on above: Performed By: #### U AMIC #### [facility] [address] [address] [address] Manda York Hematocrit (Bld) [Volume fraction] 43.4 % Normal 36.0-48.0 [facility] Comment on above: Performed By: #### U AMIC #### [facility] [address] [address] [address] Manda York Hemoglobin (Bld) [Mass/Vol] 13.7 g/dL Normal 12.0-16.0 [facility] Comment on above: Performed By: #### U AMIC #### [facility] [address] [address] [address] Manda York IG # 0.12 10e3/ul Critically high 0.00-0.03 [facility] Comment on above: Performed By: #### U AMIC #### [facility] [address] [address] [address] Manda York IG % 0.8 % Critically high 0.0-0.5 [facility] Comment on above: Performed By: #### U AMIC #### [facility] [address] [address] [address] Manda York LYMPH # 2.6 103/ul Normal 1.2-3.8 [facility] Comment on above: Performed By: #### U AMIC #### [facility] [address] [address] [address] Manda York Lymphocytes/100 WBC (Bld) 18.3 % Critically low 20.5-60.0 [facility] Comment on above: Performed By: #### U AMIC #### [facility] [address] [address] [address] Manda York MANUAL DIFF REQ NO Normal [facility] Comment on above: Performed By: #### U AMIC #### [facility] [address] [address] [address] Manda York MCH (RBC) [Entitic mass] 29.0 pg Normal 26.7-34.0 [facility] Comment on above: Performed By: #### U AMIC #### [facility] [address] [address] [address] Manda York MCHC (RBC) [Mass/Vol] 31.6 g/dL Normal 29.9-35.2 [facility] Comment on above: Performed By: #### U AMIC #### [facility] [address] [address] [address] Manda York MCV (RBC) [Entitic vol] 91.8 fL Normal 81.0-99.0 [facility] Comment on above: Performed By: #### U AMIC #### [facility] [address] [address] [address] Manda York MONO # 0.7 103/ul Normal 0.3-0.8 [facility] Comment on above: Performed By: #### U AMIC #### [facility] [address] [address] [address] Manda York Monocytes/100 WBC (Bld) 5.1 % Normal 1.7-12.0 [facility] Comment on above: Performed By: #### U AMIC #### [facility] [address] [address] [address] Manda York NEUT # 10.6 103/ul Critically high 1.4-6.5 [facility] Comment on above: Performed By: #### U AMIC #### [facility] [address] [address] [address] Manda York Neutrophils/100 WBC (Bld) 74.6 % Normal 43.0-75.0 [facility] Comment on above: Performed By: #### U AMIC #### [facility] [address] [address] [address] Manda York Platelet mean volume (Bld) [Entitic vol] 9.4 fL Critically low 9.5-13.5 [facility] Comment on above: Performed By: #### U AMIC #### [facility] [address] [address] [address] Manda York PLT 307 103/ul Normal 150-450 [facility] Comment on above: Performed By: #### U AMIC #### [facility] [address] [address] [address] Manda York RBC 4.73 106/ul Normal 4.20-5.40 [facility] Comment on above: Performed By: #### U AMIC #### [facility] [address] [address] [address] Manda York WBC 14.2 103/ul Critically high 4.0-11.0 [facility] Comment on above: Performed By: #### U AMIC #### [facility] [address] [address] [address] Manda York FREE T4on 09-24-2022 Free T4 [Mass/Vol] 1.31 ng/dL Normal 0.76-1.46 [facility] Comment on above: Performed By: #### F T4 #### [facility] [address] [place] [address] Dr. Manda York GLYCOHEMOGLOBIN A1Con 2022 ADA RECOMMENDATION SEE BELOW Normal [facility] Comment on above: Result Comment: ADA RECOMMENDED LIMIT 4.0 - 6.0 ADA THERAPEUTIC TARGET < 7.0 ACTION SUGGESTED > 7.0 Performed By: #### A 1C #### [facility] [address] [place] [address] Dr. Manda York Glucose [Mass/Vol] 120 mg/dL Normal [facility] Comment on above: Performed By: #### A 1C #### [facility] [address] [place] [address] Dr. Manda York HbA1c (Bld) [Mass fraction] 5.8 % Normal 4.5-6.2 [facility] Comment on above: Performed By: #### A 1C #### [facility] [address] [place] [address] Dr. Manda York PREG QUANT HCGon 09-24-2022 HCG QUANT <1 Normal [facility] Comment on above: Performed By: #### F T4 #### [facility] [address] [place] [address] Dr. Manda York HCG RANGE SEE BELOW Normal [facility] Comment on above: Result Comment: 5-50 0.2-1 WEEK 50-500 1-2 WEEKS 100-5,000 2-3 WEEKS 500-10,000 3-4 WEEKS 1,000-50,000 4-5 WEEKS 10,000-100,000 5-6 WEEKS 15,000-200,000 6-8 WEEKS 10,000-100,000 2-3 MONTHS Performed By: #### F T4 #### [facility] [address] [place] [address] Dr. Manda York PROTIMEon 09-24-2022 INR Coag (PPP) [Relative time] {INR} Normal [facility] Comment on above: Performed By: #### F T4 #### [facility] [address] [place] [address] Dr. Manda York INR GUIDELINES SEE BELOW Normal [facility] Comment on above: Result Comment: SHERRY RED INR: 2.0 - 3.0 CONDITIONS NOT LISTED BELOW 2.5 - 3.5 FOR PROSTHETIC HEART VALVE REPLACEMENT 2.5 - 3.5 RECURRENT THROMBOSIS Performed By: #### F T4 #### [facility] [address] [place] [address] Dr. Manda York PT Coag (PPP) [Time] 9.6 s Normal 9.0-11.6 [facility] Comment on above: Performed By: #### F T4 #### [facility] [address] [place] [address] Dr. Manda York PTTon 09-24-2022 aPTT Coag (Bld) [Time] 28.2 s Normal 22.3-36.2 [facility] Comment on above: Performed By: #### F T4 #### [facility] [address] [place] [address] Dr. Manda York TSHon 09-24-2022 TSH 0.300 uIU/mL Critically low 0.358-3.740 [facility] Comment on above: Performed By: #### F T4 #### [facility] [address] [place] [address] Dr. Manda York US PELVIS TRANSVAGon 023 [...] by: AURORA SHAIKH Date: 2022-09-24 17:50 Normal [facility] PAP ACOG PANEL 2: 30 to 65on 09-18-2022 . . Normal [facility] Comment on above: Result Comment: Perf ormed at: WB Performed By: #### F T4 #### [facility] [address] [place] [address] Dr. Manda York Age Gdln ACOG Testing 30-65 Normal [facility] Comment on above: Performed By: #### F T4 #### [facility] [address] [place] [address] Dr. Manda York DIAGNOSIS: Comment Normal [facility] Comment on above: Result Comment: NEGA TIVE FOR INTRAEPITHELIAL LESION OR MALIGNANCY. Performed at: WB Performed By: #### F T4 #### [facility] [address] [address] [address] Manda York HPV Aptima Negative Normal Negative [facility] Comment on above: Result Comment: This nucleic acid amplification test detects fourteen high-risk HPV types (16,18,31,33,35,39,45,51,52,56,58,59,66,68) without differentiation. Performed at: =G Performed By: #### F T4 #### [facility] [address] [address] [address] Manda York HPV Genotype Reflex Comment Normal [facility] Comment on above: Result Comment: Crit eria not met, HPV Genotype not performed. Performed at: WB Performed By: #### F T4 #### [facility] [address] [address] [address] Manda York Methodology: Comment Normal [facility] Comment on above: Result Comment: This liquid based ThinPrep(R) pap test was screened with the use of an image guided system. Performed at: WB Performed By: #### F T4 #### [facility] [address] [address] [address] Manda York Note: Comment Normal [facility] Comment on above: Result Comment: [...] WB Performed By: #### F T4 #### [facility] [address] [address] [address] Manda York Performed by: Comment Normal [facility] Comment on above: Result Comment: Lorena Peters, Ordnance Engineer (ASCP) Performed at: WB Performed By: #### F T4 #### [facility] [address] [place] [address] Dr. Manda York Specimen adequacy: Comment Normal [facility] Comment on above: Result Comment: Sati sfactory for evaluation. Endocervical and/or squamous metaplastic cells (endocervical component) are present. Performed at: WB Performed By: #### F T4 #### [facility] [address] [address] [address] Manda York Cytology Cervical or vaginal smear or scraping studyOrdered By: Hazel Torres on 09-10-2022 [facility] MG MAMM SCREEN 3D SELENE CADon 09-01-2022 MG MAMM SCREEN 3D SELENE CAD Patient: ARIADNA HALEY Exam Date: 09/01/2022 : 1980 Gender:F Ordering : DR MANUEL FERRIS . Admission #: [id number] Family : Order #: [id number] CLICK HERE TO VIEW EXAM RADIOLOGY REPORT [...] stomach cancer at age 56. LOCATION: [facility] BREAST COMPOSITION: Scattered areas fibroglandular density. [...] M.D. on 09/02/2022 at 12:32 Normal [facility] MRI KNEE RT WO CONon 11-09-2 [...] MANUEL GOMEZ Date: 2022-04-01 08:24 Normal [facility] PNEUMOCOCCAL IGG ABS, 23 SER OTYPESon 03-21-2022 Pneumococcal Interpretation See Note [facility] S. pneumoniae 1 IgG (S) [Mass/Vol] 0.27 ug/mL [facility] S. pneumoniae 12 IgG (S) [Mass/Vol] 0.08 ug/mL [facility] S. pneumoniae 14 IgG (S) [Mass/Vol] 0.19 ug/mL [facility] S. pneumoniae 17 IgG (S) [Mass/Vol] 1.72 ug/mL [facility] S. pneumoniae 19 IgG (S) [Mass/Vol] 1.52 ug/mL [facility] S. pneumoniae 2 IgG (S) [Mass/Vol] 0.44 ug/mL [facility] S. pneumoniae 20 IgG (S) [Mass/Vol] 1.53 ug/mL [facility] S. pneumoniae 22 IgG (S) [Mass/Vol] 0.99 ug/mL [facility] S. pneumoniae 23 IgG (S) [Mass/Vol] 0.14 ug/mL [facility] S. pneumoniae 3 IgG (S) [Mass/Vol] 0.36 ug/mL [facility] S. pneumoniae 34 IgG (S) [Mass/Vol] 5.77 ug/mL [facility] S. pneumoniae 4 IgG (S) [Mass/Vol] 0.06 ug/mL [facility] S. pneumoniae 43 IgG (S) [Mass/Vol] 0.93 ug/mL [facility] S. pneumoniae 5 IgG (S) [Mass/Vol] 0.89 ug/mL [facility] S. pneumoniae 8 IgG (S) [Mass/Vol] 0.58 ug/mL [facility] S. pneumoniae 9 IgG (S) [Mass/Vol] 0.4 ug/mL [facility] S. pneumoniae Congolese type 15B IgG (S) [Mass/Vol] 8.27 ug/mL [facility] S. pneumoniae Congolese type 18C IgG (S) [Mass/Vol] 0.39 ug/mL [facility] S. pneumoniae Congolese type 19A IgG (S) [Mass/Vol] 17.72 ug/mL [facility] S. pneumoniae Congolese type 33F IgG (S) [Mass/Vol] 3.04 ug/mL [facility] S. pneumoniae Congolese type 6B IgG (S) [Mass/Vol] 0.82 ug/mL [facility] S. pneumoniae Congolese type 7F IgG (S) [Mass/Vol] 0.34 ug/mL [facility] S. pneumoniae Congolese type 9V IgG (S) [Mass/Vol] 0.78 ug/mL [facility] XR KNEE RT 4V or >on [...] by: KRISTINA GARRETT Date: 2022-03-21 16:47 Normal [facility] DIPHTHER/TETANUS ABon 2021 C. diphtheriae IgG Qn (S) 0.1 IU/mL [facility] C. tetani toxoid IgG IA Qn 1 IU/mL [facility] IGA BLDon 03-18-2022 IgA [Mass/Vol] 182 mg/dL 70 - 400 mg/dL [facility] IGE BLDon 03-18-2022 IgE Qn 12.3 kU/l <114.0 kU/l [facility] IGGon 03-18-2022 IgG [Mass/Vol] 618 mg/dL Low 700 - 1,600 mg/dL [facility] IGMon 03-18-2022 IgM [Mass/Vol] 514 mg/dL High 40 - 230 mg/dL [facility] Immunodeficiency panel FC (B ld)on 03-18-2022 CD3 cells (Bld) [#/Vol] 2841 cells/uL High 958 - 2,388 cells/uL [facility] CD3 cells/100 cells (Bld) 81 % 60 - 89 % [facility] CD3+CD4+ (T4 helper) cells (Bld) [#/Vol] 1621 cells/uL 533 - 1,674 cells/uL [facility] CD3+CD4+ (T4 helper) cells/100 cells (Bld) 46 % 34 - 61 % [facility] CD3+CD4+ (T4 helper) cells/CD3+CD8+ (T8 suppressor cells) cells (Bld) [# ratio] 1.55 % 1.10 - 3.25 [facility] CD3+CD8+ (T8 suppressor cells) cells (Bld) [#/Vol] 1049 cells/uL High 175 - 958 cells/uL [facility] CD3+CD8+ (T8 suppressor cells) cells/100 cells (Bld) 30 % 10 - 41 % [facility] CD3-CD16+CD56+ (Natural killer) cells (Bld) [#/Vol] 193 cells/uL 102 - 565 cells/uL [facility] CD3-CD16+CD56+ (Natural killer) cells/100 cells (Bld) 5 % 5 - 25 % [facility] CD3-CD19+ cells (Bld) [#/Vol] 475 cells/uL 75 - 660 cells/uL [facility] CD3-CD19+ cells/100 cells (Bld) 13 % 5 - 22 % [facility] CBC W Auto Differential pane l (Bld)on 03-17-2022 Basophils (Bld) [#/Vol] 0.07 10*3/uL <0.11 k/uL [facility] Basophils/100 WBC (Bld) 0.6 % [facility] Differential cell count method Nom (Bld) Auto [facility] Eosinophils (Bld) [#/Vol] 0.18 10*3/uL <0.46 k/uL [facility] Eosinophils/100 WBC (Bld) 1.6 % [facility] Erythrocyte distribution width (RBC) [Ratio] 14.6 % 11.5 - 15.0 % [facility] Hematocrit (Bld) [Volume fraction] 40.5 % 36.0 - 46.0 % [facility] Hemoglobin (Bld) [Mass/Vol] 13.0 g/dL 11.5 - 15.5 g/dL [facility] Immature granulocytes (Bld) [#/Vol] 0.06 10*3/uL <0.10 k/uL [facility] Immature granulocytes/100 WBC (Bld) 0.5 % [facility] Lymphocytes (Bld) [#/Vol] 2.97 10*3/uL 1.00 - 4.00 k/uL [facility] Lymphocytes/100 WBC (Bld) 26.9 % [facility] MCH (RBC) [Entitic mass] 28.4 pg 26.0 - 34.0 pg [facility] MCHC (RBC) [Mass/Vol] 32.1 g/dL 30.5 - 36.0 g/dL [facility] MCV (RBC) [Entitic vol] 88.4 fL 80.0 - 100.0 fL [facility] Monocytes (Bld) [#/Vol] 0.79 10*3/uL <0.87 k/uL [facility] Monocytes/100 WBC (Bld) 7.2 % [facility] Neutrophils (Bld) [#/Vol] 6.97 10*3/uL 1.45 - 7.50 k/uL [facility] Neutrophils/100 WBC (Bld) 63.2 % [facility] Nucleated RBC (Bld) [#/Vol] <0.01 k/uL [facility] Nucleated RBC/100 WBC (Bld) [Ratio] 0.0 /100 WBC [facility] Platelet mean volume (Bld) [Entitic vol] 9.9 fL 9.0 - 12.7 fL [facility] Platelets (Bld) [#/Vol] 314 10*3/uL 150 - 400 k/uL [facility] RBC (Bld) [#/Vol] 4.58 10*6/uL 3.90 - 5.2 0 m/uL [facility] WBC (Bld) [#/Vol] 11.04 10*3/uL High 3.70 - 11 .00 k/uL [facility] ECHOCARDIO M/2D COMPLETEon 1 ECHOCARDIO M/2D COMPLETE Patient: ARIADNA HALEY Exam Date: 03/12/2022 : 1980 Gender:F Ordering : DR MANUEL FERRIS . Admission #: [id number] Family : Order #: [id number] CLICK HERE TO VIEW EXAM ECHOCARDIOGRAM REPORT [...] M.D. on 03/16/2022 at 16:47 Normal [facility] INSULINon 03-11-2022 Insulin 17.8 uIU/mL Normal 2.6-24.9 [facility] Comment on above: Performed By: #### C BC #### [facility] [address] [address] [address] Manda York CBC AUTO DIFFon 03-09-2022 BASO # 0.1 103/ul Normal 0.0-0.1 [facility] Comment on above: Performed By: #### C BC #### [facility] [address] [place] [address] Dr. Manda York Basophils/100 WBC (Bld) 0.4 % Normal 0.2-2.0 [facility] Comment on above: Performed By: #### C BC #### [facility] [address] [place] [address] Dr. Manda York EO # 0.2 103/ul Normal 0.0-0.7 [facility] Comment on above: Performed By: #### C BC #### [facility] [address] [place] [address] Dr. Manda Yrok Eosinophils/100 WBC (Bld) 1.2 % Normal 0.9-7.0 [facility] Comment on above: Performed By: #### C BC #### [facility] [address] [place] [address] Dr. Manda York Erythrocyte distribution width (RBC) [Ratio] 14.6 % Normal 11.0-15.0 [facility] Comment on above: Performed By: #### C BC #### [facility] [address] [place] [address] Dr. Manda York Hematocrit (Bld) [Volume fraction] 39.2 % Normal 36.0-48.0 [facility] Comment on above: Performed By: #### C BC #### [facility] [address] [place] [address] Dr. Manda York Hemoglobin (Bld) [Mass/Vol] 12.7 g/dL Normal 12.0-16.0 [facility] Comment on above: Performed By: #### C BC #### [facility] [address] [place] [address] Dr. Manda York IG # 0.06 10e3/ul Critically high 0.00-0.03 [facility] Comment on above: Performed By: #### C BC #### [facility] [address] [place] [address] Dr. Manda York IG % 0.5 % Normal 0.0-0.5 [facility] Comment on above: Performed By: #### C BC #### [facility] [address] [place] [address] Dr. Manda York LYMPH # 3.7 103/ul Normal 1.2-3.8 [facility] Comment on above: Performed By: #### C BC #### [facility] [address] [place] [address] Dr. Manda York Lymphocytes/100 WBC (Bld) 31.0 % Normal 20.5-60.0 [facility] Comment on above: Performed By: #### C BC #### [facility] [address] [place] [address] Dr. Manda York MANUAL DIFF REQ NO Normal [facility] Comment on above: Performed By: #### C BC #### [facility] [address] [place] [address] Dr. Manda York MCH (RBC) [Entitic mass] 28.9 pg Normal 26.7-34.0 [facility] Comment on above: Performed By: #### C BC #### [facility] [address] [place] [address] Dr. Manda York MCHC (RBC) [Mass/Vol] 32.4 g/dL Normal 29.9-35.2 [facility] Comment on above: Performed By: #### C BC #### [facility] [address] [place] [address] Dr. Manda York MCV (RBC) [Entitic vol] 89.1 fL Normal 81.0-99.0 [facility] Comment on above: Performed By: #### C BC #### [facility] [address] [place] [address] Dr. Manda York MONO # 0.7 103/ul Normal 0.3-0.8 [facility] Comment on above: Performed By: #### C BC #### [facility] [address] [address] [address] Manda York Monocytes/100 WBC (Bld) 5.8 % Normal 1.7-12.0 [facility] Comment on above: Performed By: #### C BC #### [facility] [address] [address] [address] Manda York NEUT # 7.3 103/ul Critically high 1.4-6.5 [facility] Comment on above: Performed By: #### C BC #### [facility] [address] [address] [address] Manda York Neutrophils/100 WBC (Bld) 61.1 % Normal 43.0-75.0 [facility] Comment on above: Performed By: #### C BC #### [facility] [address] [place] [address] Dr. Manda York Platelet mean volume (Bld) [Entitic vol] 9.7 fL Normal 9.5-13.5 [facility] Comment on above: Performed By: #### C BC #### [facility] [address] [place] [address] Dr. Manda York PLT 297 103/ul Normal 150-450 [facility] Comment on above: Performed By: #### C BC #### [facility] [address] [place] [address] Dr. Manda York RBC 4.40 106/ul Normal 4.20-5.40 [facility] Comment on above: Performed By: #### C BC #### [facility] [address] [place] [address] Dr. Manda York WBC 12.0 103/ul Critically high 4.0-11.0 [facility] Comment on above: Performed By: #### C BC #### [facility] [address] [place] [address] Dr. Manda York FREE THYROXINE INDEX T7on FTI 3.81 Normal 1.30-4.50 [facility] [place] [facility] Comment on above: Performed By: #### U AMIC #### [facility] [address] [address] [address] Manda York T3U 34.0 % Normal 30.0-39.0 [facility] [place] [facility] Comment on above: Performed By: #### U AMIC #### [facility] [address] [address] [address] Manda York T4 [Mass/Vol] 11.20 ug/dL Normal 4.80-13.90 [facility] Comment on above: Performed By: #### U AMIC #### [facility] [address] [address] [address] Manda York GLYCOHEMOGLOBIN A1Con 2021 ADA RECOMMENDATION SEE BELOW Normal [facility] Comment on above: Result Comment: ADA RECOMMENDED LIMIT 4.0 - 6.0 ADA THERAPEUTIC TARGET < 7.0 ACTION SUGGESTED > 7.0 Performed By: #### S LUIGI MELO #### [facility] [address] [address] [address] Manda York Glucose [Mass/Vol] 117 mg/dL Normal [facility] Comment on above: Performed By: #### S LEANN MELOC #### [facility] [address] [address] [address] Manda York HbA1c (Bld) [Mass fraction] 5.7 % Normal 4.5-6.2 [facility] [place] [facility] Comment on above: Performed By: #### LEANN PATRICKC #### [facility] [address] [address] [address] Manda York IRONon 03-09-2022 Iron [Mass/Vol] 61.0 ug/dL Normal 50.0-170.0 [facility] Comment on above: Performed By: #### C BC #### [facility] [address] [place] [address] Dr. Manda York LIPID PROFILEon 03-09-2022 CHOL-HDL RATIO NORM SEE BELOW Normal [facility] Comment on above: Result Comment: 3.3 - 4.4 LOW RISK 4.4 - 7.1 AVERAGE RISK 7.1 - 11.0 MODERATE RISK >11.0 HIGH RISK Performed By: #### U AMIC #### [facility] [address] [address] [address] Manda York Cholesterol [Mass/Vol] 260 mg/dL Critically high <=200 [facility] Comment on above: Performed By: #### U AMIC #### [facility] [address] [place], [place] [address] Dr. Manda York Cholesterol in HDL [Mass/Vol] 38 mg/dL Critically low 40-60 [facility] [place] [facility] Comment on above: Performed By: #### U AMIC #### [facility] [address] [address] [address] Manda York Cholesterol in LDL [Mass/Vol] 170.8 mg/dL Normal [facility] [place] [facility] Comment on above: Performed By: #### U AMIC #### [facility] [address] [address] [address] Manda York Cholesterol.total/Chol esterol in HDL [Mass ratio] 6.8 {ratio} Normal [facility] [place] [facility] Comment on above: Performed By: #### U AMIC #### [facility] [address] [address] [address] Manda York HDL NORMAL > or = 60 mg/dl - LO W CARDIOVASCULAR RISK <40 mg/dl - HIGH CARDIOVASCULAR RISK Normal [facility] Comment on above: Performed By: #### U AMIC #### [facility] [address] [address] [address] Manda York LDL CALC NORMAL SEE BELOW Normal [facility] Comment on above: Result Comment: <100 mg/dl OPTIMAL 100 - 129 mg/dl NEAR OR ABOVE OPTIMAL 130 - 159 mg/dl BORDERLINE HIGH 160 - 189 mg/dl HIGH >190 mg/dl VERY HIGH Performed By: #### U AMIC #### [facility] [address] [address] [address] Manda York Triglyceride [Mass/Vol] 256 mg/dL Critically high <=150 [facility] Comment on above: Performed By: #### U AMIC #### [facility] [address] [address] [address] Manda York VLDL CALC 51.2 mg/dL Normal [facility] [place] [facility] Comment on above: Performed By: #### U AMIC #### [facility] [address] [address] [address] Manda York PROF 14(COMP METB)on 022 Albumin [Mass/Vol] 3.8 g/dL Normal 3.4-5.0 [facility] Comment on above: Performed By: #### U AMIC #### [facility] [address] [address] [address] Manda York Albumin/Globulin [Mass ratio] 1.0 {ratio} Normal [facility] [place] [facility] Comment on above: Performed By: #### U AMIC #### [facility] [address] [address] [address] Manda York ALP [Catalytic activity/Vol] 66 U/L Normal 46-116 [facility] [place] [facility] Comment on above: Performed By: #### U AMIC #### [facility] [address] [address] [address] Manda York ALT [Catalytic activity/Vol] 27 U/L Normal 14-59 [facility] [place] [facility] Comment on above: Performed By: #### U AMIC #### [facility] [address] [address] [address] Manda York Anion gap [Moles/Vol] 11.8 mmol/L Normal [facility] Comment on above: Performed By: #### U AMIC #### [facility] [address] [address] [address] Manda York AST [Catalytic activity/Vol] 9 U/L Critically low 15-37 [facility] [place] [facility] Comment on above: Performed By: #### U AMIC #### [facility] [address] [address] [address] Manda York Bilirubin [Mass/Vol] 0.2 mg/dL Normal 0.2-1.0 [facility] [place] [facility] Comment on above: Performed By: #### U AMIC #### [facility] [address] [address] [address] Manda York Calcium [Mass/Vol] 9.1 mg/dL Normal 8.5-10.1 [facility] Comment on above: Performed By: #### U AMIC #### [facility] [address] [address] [address] Manda York Chloride [Moles/Vol] 101 mmol/L Normal 98-107 [facility] Comment on above: Performed By: #### U AMIC #### [facility] [address] [address] [address] Manda York CO2 [Moles/Vol] 26.1 mmol/L Normal 21.0-32.0 [facility] Comment on above: Performed By: #### U AMIC #### [facility] [address] [place] [address] Dr. Manda York Creatinine [Mass/Vol] 0.80 mg/dL Normal 0.55-1.02 [facility] [place] [facility] Comment on above: Performed By: #### U AMIC #### [facility] [address] [address] [address] Manda York EGFR-AF CAMBODIAN >60 Normal >=60 [facility] Comment on above: Performed By: #### U AMIC #### [facility] [address] [place] [address] Dr. Manda York EGFR-NON AF CAMBODIAN >60 Normal >=60 [facility] [place] [facility] Comment on above: Performed By: #### U AMIC #### [facility] [address] [address] [address] Manda York Globulin (S) [Mass/Vol] 3.8 g/dL Normal [facility] Comment on above: Performed By: #### U AMIC #### [facility] [address] [address] [address] Manda York Glucose [Mass/Vol] 93 mg/dL Normal 74-106 [facility] Comment on above: Performed By: #### U AMIC #### [facility] [address] [place] [address] Dr. Manda York Potassium [Moles/Vol] 3.9 mmol/L Normal 3.5-5.1 [facility] Comment on above: Performed By: #### U AMIC #### [facility] [address] [address] [address] Manda York Protein [Mass/Vol] 7.6 g/dL Normal 6.4-8.2 [facility] Comment on above: Performed By: #### U AMIC #### [facility] [address] [address] [address] Manda York Sodium [Moles/Vol] 135 mmol/L Critically low 136-145 [facility] Comment on above: Performed By: #### U AMIC #### [facility] [address] [address] [address] Manda York Urea nitrogen [Mass/Vol] 10.0 mg/dL Normal 7.0-18.0 [facility] [place] [facility] Comment on above: Performed By: #### U AMIC #### [facility] [address] [address] [address] Manda York Urea nitrogen/Creatinine [Mass ratio] 12.5 mg/mg Normal [facility] [place] [facility] Comment on above: Performed By: #### U AMIC #### [facility] [address] [address] [address] Manda York TSHon 03-09-2022 TSH 0.610 uIU/mL Normal 0.358-3.740 [facility] Comment on above: Performed By: #### U AMIC #### [facility] [address] [address] [address] Manda York B2 MICROGLOBULIN Bon 022 Aaig-2-Mfypwlncyvesg [Mass/Vol] 1.8 ug/mL 0.8 - 2.4 mg/L [facility] FERRITIN BLDon 03-05-2022 Ferritin [Mass/Vol] 33.2 ng/mL 14.7 - 2 05.1 ng/mL [facility] FOLATE SERUMon 03-05-2022 Folate [Mass/Vol] 6.6 ng/mL >4.7 ng/mL [facility] Iron and Iron binding capaci ty panelon 03-05-2022 Iron [Mass/Vol] 49 ug/dL 41 - 186 ug/dL [facility] Iron binding capacity [Mass/Vol] 392 ug/dL High 232 - 386 ug/dL [facility] Iron/TIBC [Molar ratio] 12.5 % Low 15.0 - 57.0 % [facility] CBC W Auto Differential pane l (Bld)on 03-04-2022 Basophils (Bld) [#/Vol] 0.07 10*3/uL <0.11 k/uL [facility] Basophils/100 WBC (Bld) 0.6 % [facility] Differential cell count method Nom (Bld) Auto [facility] Eosinophils (Bld) [#/Vol] 0.19 10*3/uL <0.46 k/uL [facility] Eosinophils/100 WBC (Bld) 1.7 % [facility] Erythrocyte distribution width (RBC) [Ratio] 14.7 % 11.5 - 15.0 % [facility] Hematocrit (Bld) [Volume fraction] 40.0 % 36.0 - 46.0 % [facility] Hemoglobin (Bld) [Mass/Vol] 13.0 g/dL 11.5 - 15.5 g/dL [facility] Immature granulocytes (Bld) [#/Vol] 0.07 10*3/uL <0.10 k/uL [facility] Immature granulocytes/100 WBC (Bld) 0.6 % [facility] Lymphocytes (Bld) [#/Vol] 3.31 10*3/uL 1.00 - 4.00 k/uL [facility] Lymphocytes/100 WBC (Bld) 30.2 % [facility] MCH (RBC) [Entitic mass] 28.9 pg 26.0 - 34.0 pg [facility] MCHC (RBC) [Mass/Vol] 32.5 g/dL 30.5 - 36.0 g/dL [facility] MCV (RBC) [Entitic vol] 88.9 fL 80.0 - 100.0 fL [facility] Monocytes (Bld) [#/Vol] 0.70 10*3/uL <0.87 k/uL [facility] Monocytes/100 WBC (Bld) 6.4 % [facility] Neutrophils (Bld) [#/Vol] 6.63 10*3/uL 1.45 - 7.50 k/uL [facility] Neutrophils/100 WBC (Bld) 60.5 % [facility] Nucleated RBC (Bld) [#/Vol] <0.01 k/uL [facility] Nucleated RBC/100 WBC (Bld) [Ratio] 0.0 /100 WBC [facility] Platelet mean volume (Bld) [Entitic vol] 9.6 fL 9.0 - 12.7 fL [facility] Platelets (Bld) [#/Vol] 355 10*3/uL 150 - 400 k/uL [facility] RBC (Bld) [#/Vol] 4.50 10*6/uL 3.90 - 5.2 0 m/uL [facility] WBC (Bld) [#/Vol] 10.97 10*3/uL 3.70 - 11 .00 k/uL [facility] Calcium.ionized [Moles/Vol]o n 03-04-2022 Calcium.ionized (Bld) [Mass/Vol] 1.26 mmol/L 1.08 - 1.30 mmol/L [facility] Calcium.ionized adjusted to pH 7.4 (Bld) [Moles/Vol] 1.25 mmol/L 1.08 - 1.30 mmol/L [facility] Comprehensive metabolic 2000 panelon 03-04-2022 Albumin [Mass/Vol] 4.3 g/dL 3.9 - 4.9 g/dL [facility] ALP [Catalytic activity/Vol] 70 U/L 34 - 123 U/L [facility] ALT [Catalytic activity/Vol] 26 U/L 7 - 38 U/L [facility] Anion gap [Moles/Vol] 7 mmol/L Low 9 - 18 mmol/L [facility] AST [Catalytic activity/Vol] 12 U/L Low 13 - 35 U/L [facility] Bilirubin [Mass/Vol] 0.2 mg/dL 0.2 - 1 .3 mg/dL [facility] Calcium [Mass/Vol] 9.3 mg/dL 8.5 - 10. 2 mg/dL [facility] Chloride [Moles/Vol] 103 mmol/L 97 - 10 5 mmol/L [facility] CO2 [Moles/Vol] 28 mmol/L 22 - 30 mmol/L [facility] Creatinine [Mass/Vol] 0.69 mg/dL 0.58 - 0.96 mg/dL [facility] Estimated Glomerular Filtration Rate 112 mL/min/1.73m >=60 mL/min/1.73m [facility] Glucose [Mass/Vol] 100 mg/dL High 74 - 99 mg/dL [facility] Potassium [Moles/Vol] 3.9 mmol/L 3.7 - 5.1 mmol/L [facility] Protein [Mass/Vol] 7.0 g/dL 6.3 - 8.0 g/dL [facility] Sodium [Moles/Vol] 138 mmol/L 136 - 144 mmol/L [facility] Urea nitrogen [Mass/Vol] 12 mg/dL 7 - 21 mg/dL [facility] LD LACTATE DEHYDROon 022 LDH [Catalytic activity/Vol] 135 U/L 135 - 214 U/L [facility] PHOSPHORUS INORGANICon 03-04 Phosphate [Mass/Vol] 3.2 mg/dL 2.7 - 4 .8 mg/dL [facility] URIC ACID BLOODon 03-04-2022 Urate [Mass/Vol] 5.2 mg/dL 2.5 - 6.6 mg/dL [facility] IMMUNOGLOBULINS IGA/IGM/IGG/ IGE QUANTITAon 02-20-2022 Immunoglobulin A, Qn, Serum 189 mg/dL Normal 87-352 [facility] [place] [facility] Comment on above: Result Comment: Perf ormed at: CB Performed By: #### LUIGI PATRICK #### [facility] [address] [address] [address] Manda York Immunoglobulin E, Total 10 IU/mL Normal 6-495 [facility] [place] [facility] Comment on above: Result Comment: Perf ormed at: BN Performed By: #### LUIGI PATRICK #### [facility] [address] [address] [address] Manda York Immunoglobulin G, Qn, Serum 598 mg/dL Normal 586-1602 [facility] Comment on above: Result Comment: Perf ormed at: CB Performed By: #### LUIGI PATRICK #### [facility] [address] [address] [address] Manda York Immunoglobulin M, Qn, Serum 493 mg/dL Critically high 26-217 [facility] Comment on above: Result Comment: Perf ormed at: CB Performed By: #### LUIGI PATRICK #### [facility] [address] [place] [address] Dr. Manda York CHRISTIAN by IFAon 02-19-2022 Antinuclear Antibodies, IFA Negative Normal [facility] Comment on above: Result Comment: Nega tive <1:80 Borderline 1:80 Positive >1:80 ICAP nomenclature: AC-0 For more information about Hep-2 cell patterns use ANApatterns.org, the official website for the International Consensus on Antinuclear Antibody (CHRISTIAN) Patterns (ICAP). Performed By: #### S LUIGI MELO #### [facility] [address] [place] [address] Dr. Manda York THYROID ANTIBODIESon 022 Thyroglobulin Antibody <1.0 Normal 0.0-0.9 [facility] Comment on above: Result Comment: Thyr oglobulin Antibody measured by Q-Layer Methodology Performed By: #### F T4 #### [facility] [address] [place] [address] Dr. Manda York Thyroid Peroxidase (TPO) Ab <8 Normal 0-34 [facility] Comment on above: Performed By: #### F T4 #### [facility] [address] [address] [address] Manda York PROTEIN ELECTROPHERESISon Albumin [Mass/Vol] 3.2 g/dL Normal 2.9-4.4 [facility] Comment on above: Performed By: #### F T4 #### [facility] [address] [address] [address] Manda York Albumin/Globulin [Mass ratio] 1.0 {ratio} Normal 0.7-1.7 [facility] Comment on above: Performed By: #### F T4 #### [facility] [address] [place] [address] Dr. Manda York Jolqe-0-Yyugxben 0.2 g/dL Normal 0.0-0.4 [facility] Comment on above: Performed By: #### F T4 #### [facility] [address] [place] [address] Dr. Manda York Mzrep-7-Jhsqcemm 0.9 g/dL Normal 0.4-1.0 [facility] Comment on above: Performed By: #### F T4 #### [facility] [address] [address] [address] Manda York Beta Globulin 1.2 g/dL Normal 0.7-1.3 [facility] Comment on above: Performed By: #### F T4 #### [facility] [address] [address] [address] Manda York Gamma Globulin 0.9 g/dL Normal 0.4-1.8 [facility] Comment on above: Performed By: #### F T4 #### [facility] [address] [address] [address] Manda York Globulin (S) [Mass/Vol] 3.2 g/dL Normal 2.2-3.9 [facility] [place] [facility] Comment on above: Performed By: #### F T4 #### [facility] [address] [place] [address] Dr. Manda York M-Jose De Jesus Not Observed Normal Not Observed [facility] Comment on above: Performed By: #### F T4 #### [facility] [address] [address] [address] Manda York PDF . Normal [facility] [place] [facility] Comment on above: Performed By: #### F T4 #### [facility] [address] [place] [address] Dr. Manda York Please note: Comment Normal [facility] [place] [facility] Comment on above: Result Comment: Prot ein electrophoresis scan will follow via computer, mail, or neuro ophthalmologist delivery. Performed By: #### F T4 #### [facility] [address] [place] [address] Dr. Manda York Protein [Mass/Vol] 6.4 g/dL Normal 6.0-8.5 [facility] Comment on above: Performed By: #### F T4 #### [facility] [address] [address] [address] Manda York SLE PROFILE Aon 02-16-2022 Anti-DNA (DS) Ab Qn 9 IU/mL Normal 0-9 [facility] Comment on above: Result Comment: Nega tive <5 Equivocal 5 - 9 Positive >9 Performed By: #### LUIGI PATRICK #### [facility] [address] [place] [address] Dr. Manda York Antichromatin Antibodies <0.2 Normal 0.0-0.9 [facility] Comment on above: Performed By: #### LUIGI PATRICK #### [facility] [address] [place] [address] Dr. Manda York RA Latex Turbid. <10.0 Normal <14.0 [facility] Comment on above: Performed By: #### LUIGI PATRICK #### [facility] [address] [place] [address] Dr. Manda York BOILER SETTER Antibodies <0.2 Normal 0.0-0.9 [facility] Comment on above: Performed By: #### LUIGI PATRICK #### [facility] [address] [place] [address] Dr. aMnda York Sjogryaniv's Anti-SS-A <0.2 Normal 0.0-0.9 [facility] Comment on above: Performed By: #### LUIGI PATRICK #### [facility] [address] [place] [address] Dr. Manda York Sjogryaniv'lucinda Anti-SS-B <0.2 Normal 0.0-0.9 [facility] Comment on above: Performed By: #### LUIGI PATRICK #### [facility] [address] [place] [address] Dr. Manda York Schneider Antibodies <0.2 Normal 0.0-0.9 [facility] Comment on above: Performed By: #### LUIGI PATRICK #### [facility] [address] [place] [address] Dr. Manda York ANTISTREPTOLYSIN O AB (ASO)o n 02-15-2022 Antistreptolysin O Ab 49.6 IU/mL Normal 0.0-200.0 [facility] Comment on above: Performed By: #### A SOAB #### [facility] [address] [place] [address] Dr. Manda York MICROALBUMIN URINEon 022 Albumin, Urine <3.0 Normal Not Estab. [facility] Comment on above: Result Comment: Ve rified by repeat analysis Performed By: #### C BC #### [facility] [address] [place] [address] Dr. Manda York T4, T3U, FTI LABCORPon 02-15 Free Thyroxine Index 2.6 Normal 1.2-4.9 [facility] Comment on above: Performed By: #### LUIGI PATRICK #### [facility] [address] [place] [address] Dr. Manda York T3 Uptake 26 % Normal 24-39 [facility] Comment on above: Performed By: #### LUIGI PATRICK #### [facility] [address] [place] [address] Dr. Manda York T4 [Mass/Vol] 9.9 ug/dL Normal 4.5-12.0 [facility] Comment on above: Performed By: #### LUIGI PATRICK #### [facility] [address] [place] [address] Dr. Manda York CBC AUTO DIFFon 02-14-2022 BASO # 0.1 103/ul Normal 0.0-0.1 [facility] Comment on above: Performed By: #### U AMIC #### [facility] [address] [place] [address] Dr. Manda York Basophils/100 WBC (Bld) 0.6 % Normal 0.2-2.0 [facility] Comment on above: Performed By: #### U AMIC #### [facility] [address] [place] [address] Dr. Manda York EO # 0.3 103/ul Normal 0.0-0.7 [facility] Comment on above: Performed By: #### U AMIC #### [facility] [address] [place] [address] Dr. Manda York Eosinophils/100 WBC (Bld) 3.4 % Normal 0.9-7.0 [facility] Comment on above: Performed By: #### U AMIC #### [facility] [address] [place] [address] Dr. Manda York Erythrocyte distribution width (RBC) [Ratio] 14.6 % Normal 11.0-15.0 [facility] Comment on above: Performed By: #### U AMIC #### [facility] [address] [place] [address] Dr. Manda York Hematocrit (Bld) [Volume fraction] 39.1 % Normal 36.0-48.0 [facility] Comment on above: Performed By: #### U AMIC #### [facility] [address] [place] [address] Dr. Manda York Hemoglobin (Bld) [Mass/Vol] 12.4 g/dL Normal 12.0-16.0 [facility] Comment on above: Performed By: #### U AMIC #### [facility] [address] [place] [address] Dr. Manda York IG # 0.03 10e3/ul Normal 0.00-0.03 [facility] Comment on above: Performed By: #### U AMIC #### [facility] [address] [place] [address] Dr. Manda York IG % 0.3 % Normal 0.0-0.5 [facility] Comment on above: Performed By: #### U AMIC #### [facility] [address] [place] [address] Dr. Manda York LYMPH # 3.6 103/ul Normal 1.2-3.8 [facility] Comment on above: Performed By: #### U AMIC #### [facility] [address] [place] [address] Dr. Manda York Lymphocytes/100 WBC (Bld) 39.9 % Normal 20.5-60.0 [facility] Comment on above: Performed By: #### U AMIC #### [facility] [address] [place] [address] Dr. Manda York MANUAL DIFF REQ NO Normal [facility] Comment on above: Performed By: #### U AMIC #### [facility] [address] [place] [address] Dr. Manda York MCH (RBC) [Entitic mass] 28.4 pg Normal 26.7-34.0 [facility] Comment on above: Performed By: #### U AMIC #### [facility] [address] [place] [address] Dr. Manda York MCHC (RBC) [Mass/Vol] 31.7 g/dL Normal 29.9-35.2 [facility] Comment on above: Performed By: #### U AMIC #### [facility] [address] [place] [address] Dr. Manda York MCV (RBC) [Entitic vol] 89.7 fL Normal 81.0-99.0 [facility] Comment on above: Performed By: #### U AMIC #### [facility] [address] [place] [address] Dr. Manda York MONO # 0.7 103/ul Normal 0.3-0.8 [facility] Comment on above: Performed By: #### U AMIC #### [facility] [address] [place] [address] Dr. Manda York Monocytes/100 WBC (Bld) 7.3 % Normal 1.7-12.0 [facility] Comment on above: Performed By: #### U AMIC #### [facility] [address] [place] [address] Dr. Manda York NEUT # 4.4 103/ul Normal 1.4-6.5 [facility] Comment on above: Performed By: #### U AMIC #### [facility] [address] [place] [address] Dr. Manda York Neutrophils/100 WBC (Bld) 48.5 % Normal 43.0-75.0 [facility] Comment on above: Performed By: #### U AMIC #### [facility] [address] [place] [address] Dr. Manda York Platelet mean volume (Bld) [Entitic vol] 10.1 fL Normal 9.5-13.5 [facility] Comment on above: Performed By: #### U AMIC #### [facility] [address] [place] [address] Dr. Manda York PLT 310 103/ul Normal 150-450 [facility] Comment on above: Performed By: #### U AMIC #### [facility] [address] [place] [address] Dr. Manda York RBC 4.36 106/ul Normal 4.20-5.40 [facility] Comment on above: Performed By: #### U AMIC #### [facility] [address] [place] [address] Dr. Manda York WBC 9.0 103/ul Normal 4.0-11.0 [facility] Comment on above: Performed By: #### U AMIC #### [facility] [address] [place] [address] Dr. Manda York CRPon 02-14-2022 CRP [Mass/Vol] mg/L Normal <=1.0 [facility] Comment on above: Performed By: #### U AMIC #### [facility] [address] [place] [address] Dr. Manda York CULTURE URINEon 02-14-2022 CULTURE URINE Culture Observations : LIGHT GROWTH OF MIXED GENITAL AMBER. NO POTENTIAL PATHOGENS SEEN. Normal [facility] Comment on above: Performed By: #### C BC #### [facility] [address] [place] [address] Dr. Manda York PROF 14(COMP METB)on 022 Albumin [Mass/Vol] 3.5 g/dL Normal 3.4-5.0 [facility] Comment on above: Performed By: #### U AMIC #### [facility] [address] [place] [address] Dr. Manda York Albumin/Globulin [Mass ratio] 1.0 {ratio} Normal [facility] Comment on above: Performed By: #### U AMIC #### [facility] [address] [address] [address] Manda York ALP [Catalytic activity/Vol] 71 U/L Normal 46-116 [facility] Comment on above: Performed By: #### U AMIC #### [facility] [address] [address] [address] Manda York ALT [Catalytic activity/Vol] 46 U/L Normal 14-59 [facility] Comment on above: Performed By: #### U AMIC #### [facility] [address] [address] [address] Manda York Anion gap [Moles/Vol] 11.6 mmol/L Normal [facility] Comment on above: Performed By: #### U AMIC #### [facility] [address] [place] [address] Dr. Manda York AST [Catalytic activity/Vol] 15 U/L Normal 15-37 [facility] Comment on above: Performed By: #### U AMIC #### [facility] [address] [place] [address] Dr. Manda York Bilirubin [Mass/Vol] 0.2 mg/dL Normal 0.2-1.0 [facility] Comment on above: Performed By: #### U AMIC #### [facility] [address] [place] [address] Dr. Manda York Calcium [Mass/Vol] 8.7 mg/dL Normal 8.5-10.1 [facility] Comment on above: Performed By: #### U AMIC #### [facility] [address] [place] [address] Dr. Manda York Chloride [Moles/Vol] 104 mmol/L Normal 98-107 [facility] Comment on above: Performed By: #### U AMIC #### [facility] [address] [place] [address] Dr. Manda York CO2 [Moles/Vol] 25.1 mmol/L Normal 21.0-32.0 [facility] Comment on above: Performed By: #### U AMIC #### [facility] [address] [place] [address] Dr. Manda York Creatinine [Mass/Vol] 0.80 mg/dL Normal 0.55-1.02 [facility] Comment on above: Performed By: #### U AMIC #### [facility] [address] [address] [address] Manda York EGFR-AF CAMBODIAN >60 Normal >=60 [facility] Comment on above: Performed By: #### U AMIC #### [facility] [address] [address] [address] Manda York EGFR-NON AF CAMBODIAN >60 Normal >=60 [facility] Comment on above: Performed By: #### U AMIC #### [facility] [address] [address] [address] Manda York Globulin (S) [Mass/Vol] 3.6 g/dL Normal [facility] Comment on above: Performed By: #### U AMIC #### [facility] [address] [address] [address] Manda York Glucose [Mass/Vol] 92 mg/dL Normal 74-106 [facility] Comment on above: Performed By: #### U AMIC #### [facility] [address] [address] [address] Manda York Potassium [Moles/Vol] 3.7 mmol/L Normal 3.5-5.1 [facility] Comment on above: Performed By: #### U AMIC #### [facility] [address] [address] [address] Manda York Protein [Mass/Vol] 7.1 g/dL Normal 6.4-8.2 [facility] Comment on above: Performed By: #### U AMIC #### [facility] [address] [address] [address] Manda York Sodium [Moles/Vol] 137 mmol/L Normal 136-145 [facility] Comment on above: Performed By: #### U AMIC #### [facility] [address] [address] [address] Manda York Urea nitrogen [Mass/Vol] 17.0 mg/dL Normal 7.0-18.0 [facility] Comment on above: Performed By: #### U AMIC #### [facility] [address] [place] [address] Dr. Manda York Urea nitrogen/Creatinine [Mass ratio] 21.2 mg/mg Normal [facility] Comment on above: Performed By: #### U AMIC #### [facility] [address] [place] [address] Dr. Manda York SED RATE WESTERGRENon 2021 SED RATE 40 mm/hr Critically high <=20 [facility] Comment on above: Performed By: #### S EDR #### [facility] [address] [place] [address] Dr. Manda York TSHon 02-14-2022 TSH 1.155 uIU/mL Normal 0.358-3.740 [facility] Comment on above: Performed By: #### U AMIC #### [facility] [address] [place] [address] Dr. Manda York UA RANDOM W/MICROSCOPICon BACTERIA NONE SEEN Normal NONE SEEN [facility] Comment on above: Performed By: #### U AMIC #### [facility] [address] [place] [address] Dr. Manda York Bilirubin Ql (U) Negative Normal NEGATIVE [facility] Comment on above: Performed By: #### U AMIC #### [facility] [address] [place] [address] Dr. Manda York CAST NONE SEEN Normal NONE SEEN [facility] Comment on above: Performed By: #### U AMIC #### [facility] [address] [place] [address] Dr. Manda York Clarity (U) CLEAR Normal CLEAR [facility] Comment on above: Performed By: #### U AMIC #### [facility] [address] [place] [address] Dr. Manda York Color (U) LT. YELLOW Normal YELLOW [facility] Comment on above: Performed By: #### U AMIC #### [facility] [address] [address] [address] Manda York Crystals LM Nom (Urine sed) NONE SEEN Normal NONE SEEN [facility] Comment on above: Performed By: #### U AMIC #### [facility] [address] [address] [address] Manda York Epithelial cells LM Ql (Urine sed) RARE Normal NONE SEEN /RARE [facility] Comment on above: Performed By: #### U AMIC #### [facility] [address] [address] [address] Manda York Glucose Ql (U) Negative Normal NEGATIVE [facility] Comment on above: Performed By: #### U AMIC #### [facility] [address] [place] [address] Dr. Manda York Hemoglobin Ql (U) Negative Normal NEGATIVE [facility] Comment on above: Performed By: #### U AMIC #### [facility] [address] [place] [address] Dr. Manda York Ketones Ql (U) Negative Normal NEGATIVE [facility] Comment on above: Performed By: #### U AMIC #### [facility] [address] [address] [address] Manda oYrk LEUKOCYTES Negative Normal NEGATIVE [facility] Comment on above: Performed By: #### U AMIC #### [facility] [address] [place] [address] Dr. Manda York MUCOUS NONE SEEN Normal NONE SEEN [facility] Comment on above: Performed By: #### U AMIC #### [facility] [address] [place] [address] Dr. Manda York Nitrite Ql (U) Negative Normal NEGATIVE [facility] Comment on above: Performed By: #### U AMIC #### [facility] [address] [place] [address] Dr. Manda York pH (U) 6.0 [pH] Normal 5-9 [facility] Comment on above: Performed By: #### U AMIC #### [facility] [address] [place] [address] Dr. Manda York RBC NONE SEEN Abnormal 0-2 [facility] Comment on above: Performed By: #### U AMIC #### [facility] [address] [address] [address] Manda York SPEC GRAVITY 1.005 Normal 1.005-<=1.025 [facility] Comment on above: Performed By: #### U AMIC #### [facility] [address] [address] [address] Manda York UA PROTEIN Negative Normal NEGATIVE/ TRACE [facility] Comment on above: Performed By: #### U AMIC #### [facility] [address] [address] [address] Manda York Urobilinogen Qn (U) 0.2 {Carmella'U}/dL Normal 0.2 - 1. 0 [facility] Comment on above: Performed By: #### U AMIC #### [facility] [address] [place] [address] Dr. Manda York WBC NONE SEEN Normal NONE SEEN [facility] Comment on above: Performed By: #### U AMIC #### [facility] [address] [place] [address] Dr. Manda York URIC ACID SERUMon 02-14-2022 Urate [Mass/Vol] 4.2 mg/dL Normal 2.6-6.0 [facility] Comment on above: Performed By: #### U AMIC #### [facility] [address] [place] [address] Dr. Manda York VITAMIN D 25 OHon 02-14-2022 VIT D 25-OH 22.4 ng/mL Normal [facility] Comment on above: Performed By: #### F T4 #### [facility] [address] [place] [address] Dr. Manda York VIT D RANGES SEE BELOW Normal [facility] Comment on above: Result Comment: <20 ng/mL Vit D deficient 20 - <30 ng/mL Vit D insufficient 30 - 100 ng/mL Vit D sufficient >100 ng/mL Potential Toxicity Performed By: #### F T4 #### [facility] [address] [place] [address] Dr. Manda York [facility] QNT 24 H R URINEon 11-28-2021 Metanephrine, U,24hr Comment Normal 36-209 [facility] Comment on above: Result Comment: No t otal volume submitted. Unable to calculate 24 hour result. Performed By: #### LEANN PATRICKC #### [facility] [address] [place] [address] Dr. Manda York Metanephrine, Ur 57 ug/L Normal Undefined [facility] Comment on above: Performed By: #### LEANN PATRICKC #### [facility] [address] [place] [address] Dr. Manda York Normetanephr.,U,24h Comment Normal 131-612 [facility] Comment on above: Result Comment: No t otal volume submitted. Unable to calculate 24 hour result. Performed By: #### LEANN PATRICKC #### [facility] [address] [place] [address] Dr. Manda York Normetanephrine, Ur 116 ug/L Normal Undefined [facility] Comment on above: Performed By: #### LEANN PATRICKC #### [facility] [address] [place] [address] Dr. Manda York METANEPHRINES PLASMA FREEon 11-27-2021 Metanephrine, Pl 22.1 pg/mL Normal 0.0-88.0 [facility] Comment on above: Performed By: #### LEANN PATRICKC #### [facility] [address] [place] [address] Dr. Manda York Normetanephrine, Pl 50.7 pg/mL Normal 0.0-218.9 [facility] Comment on above: Performed By: #### LEANN PATRICKC #### [facility] [address] [place] [address] Dr. Manda York CMV PLASMA PCRon 11-19-2021 CMV Quant DNA PCR (Plasma) Negative Normal Negative [facility] Comment on above: Result Comment: No C MV DNA detected. The quantitative range of this assay is 200 to 1 million IU/mL. Performed By: #### [facility] #### [facility] [address] [place] [address] Dr. Manda York log10 CMV Qn DNA Pl UPTCAL Normal [facility] Comment on above: Result Comment: Unab le to calculate result since non-numeric result obtained for component test. Performed By: #### [facility] #### [facility] [address] [place] [address] Dr. Manda York CMV AB IGMon 11-18-2021 Cytomegalovirus (CMV) Ab, IgM 43.2 AU/mL Critically high 0.0-29.9 [facility] Comment on above: Result Comment: Nega tive <30.0 Equivocal 30.0 - 34.9 Positive >34.9 A positive result is generally indicative of acute infection, reactivation or persistent IgM production. Performed By: #### [facility] #### [facility] [address] [place] [address] Dr. Manda York CMV AB, IGGon 11-18-2021 Cytomegalovirus (CMV) Ab, IgG >10.00 Critically high 0.00-0.59 [facility] Comment on above: Result Comment: Nega tive <0.60 Equivocal 0.60 - 0.69 Positive >0.69 Performed By: #### C MVIGG #### [facility] [address] [place] [address] Dr. Manda York CBC AUTO DIFFon 11-17-2021 BASO # 0.1 103/ul Normal 0.0-0.1 [facility] Comment on above: Performed By: #### C BC #### [facility] [address] [place] [address] Dr. Manda York Basophils/100 WBC (Bld) 0.6 % Normal 0.2-2.0 [facility] Comment on above: Performed By: #### C BC #### [facility] [address] [place] [address] Dr. Manda York EO # 0.2 103/ul Normal 0.0-0.7 [facility] Comment on above: Performed By: #### C BC #### [facility] [address] [place] [address] Dr. Manda York Eosinophils/100 WBC (Bld) 2.3 % Normal 0.9-7.0 [facility] Comment on above: Performed By: #### C BC #### [facility] [address] [place] [address] Dr. Manda York Erythrocyte distribution width (RBC) [Ratio] 14.2 % Normal 11.0-15.0 [facility] Comment on above: Performed By: #### C BC #### [facility] [address] [place] [address] Dr. Manda York Hematocrit (Bld) [Volume fraction] 40.2 % Normal 36.0-48.0 [facility] Comment on above: Performed By: #### C BC #### [facility] [address] [place] [address] Dr. Manda York Hemoglobin (Bld) [Mass/Vol] 12.8 g/dL Normal 12.0-16.0 [facility] Comment on above: Performed By: #### C BC #### [facility] [address] [place] [address] Dr. Manda York IG # 0.02 10e3/ul Normal 0.00-0.03 [facility] Comment on above: Performed By: #### C BC #### [facility] [address] [place] [address] Dr. Manda York IG % 0.2 % Normal 0.0-0.5 [facility] Comment on above: Performed By: #### C BC #### [facility] [address] [place] [address] Dr. Manda York LYMPH # 2.5 103/ul Normal 1.2-3.8 [facility] Comment on above: Performed By: #### C BC #### [facility] [address] [place] [address] Dr. Manda York Lymphocytes/100 WBC (Bld) 24.9 % Normal 20.5-60.0 [facility] Comment on above: Performed By: #### C BC #### [facility] [address] [place] [address] Dr. Manda York MANUAL DIFF REQ NO Normal [facility] Comment on above: Performed By: #### C BC #### [facility] [address] [place] [address] Dr. Manda York MCH (RBC) [Entitic mass] 27.9 pg Normal 26.7-34.0 [facility] Comment on above: Performed By: #### C BC #### [facility] [address] [place] [address] Dr. Manda York MCHC (RBC) [Mass/Vol] 31.8 g/dL Normal 29.9-35.2 [facility] Comment on above: Performed By: #### C BC #### [facility] [address] [place] [address] Dr. Manda York MCV (RBC) [Entitic vol] 87.6 fL Normal 81.0-99.0 [facility] Comment on above: Performed By: #### C BC #### [facility] [address] [place] [address] Dr. Manda York MONO # 0.6 103/ul Normal 0.3-0.8 [facility] Comment on above: Performed By: #### C BC #### [facility] [address] [place] [address] Dr. Manda York Monocytes/100 WBC (Bld) 6.3 % Normal 1.7-12.0 [facility] Comment on above: Performed By: #### C BC #### [facility] [address] [place] [address] Dr. Manda York NEUT # 6.5 103/ul Normal 1.4-6.5 [facility] Comment on above: Performed By: #### C BC #### [facility] [address] [place] [address] Dr. Manda York Neutrophils/100 WBC (Bld) 65.7 % Normal 43.0-75.0 [facility] Comment on above: Performed By: #### C BC #### [facility] [address] [place] [address] Dr. Manda York Platelet mean volume (Bld) [Entitic vol] 10.1 fL Normal 9.5-13.5 [facility] Comment on above: Performed By: #### C BC #### [facility] [address] [place] [address] Dr. Manda York PLT 304 103/ul Normal 150-450 [facility] Comment on above: Performed By: #### C BC #### [facility] [address] [place] [address] Dr. Manda York RBC 4.59 106/ul Normal 4.20-5.40 [facility] Comment on above: Performed By: #### C BC #### [facility] [address] [place] [address] Dr. Manda York WBC 9.9 103/ul Normal 4.0-11.0 [facility] Comment on above: Performed By: #### C BC #### [facility] [address] [place] [address] Dr. Manda York PROF 14(COMP METB)on 022 Albumin [Mass/Vol] 3.7 g/dL Normal 3.4-5.0 [facility] Comment on above: Performed By: #### C BC #### [facility] [address] [place] [address] Dr. Manda York Albumin/Globulin [Mass ratio] 1.0 {ratio} Normal [facility] Comment on above: Performed By: #### C BC #### [facility] [address] [place] [address] Dr. Manda York ALP [Catalytic activity/Vol] 65 U/L Normal 46-116 [facility] Comment on above: Performed By: #### C BC #### [facility] [address] [place] [address] Dr. Manda York ALT [Catalytic activity/Vol] 35 U/L Normal 14-59 [facility] Comment on above: Performed By: #### C BC #### [facility] [address] [place] [address] Dr. Manda York Anion gap [Moles/Vol] 13.0 mmol/L Normal [facility] Comment on above: Performed By: #### C BC #### [facility] [address] [place] [address] Dr. Manda York AST [Catalytic activity/Vol] 12 U/L Critically low 15-37 [facility] Comment on above: Performed By: #### C BC #### [facility] [address] [address] [address] Manda York Bilirubin [Mass/Vol] 0.2 mg/dL Normal 0.2-1.0 [facility] Comment on above: Performed By: #### C BC #### [facility] [address] [place] [address] Dr. Manda York Calcium [Mass/Vol] 8.7 mg/dL Normal 8.5-10.1 [facility] Comment on above: Performed By: #### C BC #### [facility] [address] [place] [address] Dr. Manda York Chloride [Moles/Vol] 104 mmol/L Normal 98-107 [facility] Comment on above: Performed By: #### C BC #### [facility] [address] [place] [address] Dr. Manda York CO2 [Moles/Vol] 24.9 mmol/L Normal 21.0-32.0 [facility] Comment on above: Performed By: #### C BC #### [facility] [address] [place] [address] Dr. Manda York Creatinine [Mass/Vol] 0.77 mg/dL Normal 0.55-1.02 [facility] Comment on above: Performed By: #### C BC #### [facility] [address] [place] [address] Dr. Manda York EGFR-AF CAMBODIAN >=60 Normal >=60 [facility] Comment on above: Performed By: #### C BC #### [facility] [address] [place] [address] Dr. Manda York EGFR-NON AF CAMBODIAN >=60 Normal >=60 [facility] Comment on above: Performed By: #### C BC #### [facility] [address] [address] [address] Manda York Globulin (S) [Mass/Vol] 3.8 g/dL Normal [facility] Comment on above: Performed By: #### C BC #### [facility] [address] [address] [address] Manda York Glucose [Mass/Vol] 110 mg/dL Critically high 74-106 [facility] Comment on above: Performed By: #### C BC #### [facility] [address] [address] [address] Manda York Potassium [Moles/Vol] 3.9 mmol/L Normal 3.5-5.1 [facility] Comment on above: Performed By: #### C BC #### [facility] [address] [address] [address] Manda York Protein [Mass/Vol] 7.5 g/dL Normal 6.4-8.2 [facility] Comment on above: Performed By: #### C BC #### [facility] [address] [address] [address] Manda York Sodium [Moles/Vol] 138 mmol/L Normal 136-145 [facility] Comment on above: Performed By: #### C BC #### [facility] [address] [address] [address] Manda York Urea nitrogen [Mass/Vol] 17.0 mg/dL Normal 7.0-18.0 [facility] Comment on above: Performed By: #### C BC #### [facility] [address] [address] [address] Manda York Urea nitrogen/Creatinine [Mass ratio] 22.1 mg/mg Normal [facility] Comment on above: Performed By: #### C BC #### [facility] [address] [address] [address] Manda York SED RATE [facility] 2021 SED RATE 45 mm/hr Critically high <=20 [facility] Comment on above: Performed By: #### F T4 #### [facility] [address] [address] [address] Manda York CHRISTIAN EIA W/REFLEX 5 BIOMARKER Son 10-06-2021 CHRISTIAN Direct Positive Abnormal Negative [facility] Comment on above: Performed By: #### C BC #### [facility] [address] [place] [address] Dr. Manda York Anti-DNA (DS) Ab Qn 10 IU/mL Critically high 0-9 [facility] Comment on above: Result Comment: Nega tive <5 Equivocal 5 - 9 Positive >9 Performed By: #### C BC #### [facility] [address] [place] [address] Dr. Manda York BO[employer]ER [employer]TER Antibodies <0.2 Normal 0.0-0.9 [facility] Comment on above: Performed By: #### C BC #### [facility] [address] [place] [address] Dr. Manda York SEE BELOW: Comment Normal [facility] Comment on above: Result Comment: Auto [...] Sm (anti-Schneider) SLE 15 - 30% --------- BOILER SETTER Mixed Connective Tissue Disease 95% (U1 nRNP, SLE 30 - 50% anti-ribonucleoprotein) Polymyositis and/or Dermatomyositis 20% --------- Scl-70 (antiDNA Scleroderma (diffuse) 20 - 35% topoisomerase) Crest 13% --------- Felicita-1 Polymyositis and/or Dermatomyositis 20 - 40% --------- Centromere B Scleroderma - Crest variant 80% Performed By: #### C BC #### [facility] [address] [place] [address] Dr. Manda York Sjogren'lucinda Anti-SS-A <0.2 Normal 0.0-0.9 [facility] Comment on above: Performed By: #### C BC #### [facility] [address] [place] [address] Dr. Manda York Sjogren'lucinda Anti-SS-B <0.2 Normal 0.0-0.9 [facility] Comment on above: Performed By: #### C BC #### [facility] [address] [place] [address] Dr. Manda York Schneider Antibodies <0.2 Normal 0.0-0.9 [facility] Comment on above: Performed By: #### C BC #### [facility] Laboratory [address] [place] [address] Dr. Manda York CMV PLASMA PCRon 10-06-2021 CMV Quant DNA PCR (Plasma) Negative Normal Negative [facility] Comment on above: Result Comment: No C MV DNA detected. The quantitative range of this assay is 200 to 1 million IU/mL. Performed By: #### C MVPL #### [facility] [address] [place] [address] Dr. Manda York log10 CMV Qn DNA Pl UPTCAL Normal [facility] Comment on above: Result Comment: Unab le to calculate result since non-numeric result obtained for component test. Performed By: #### C MVPL #### [facility] [address] [place] [address] Dr. Manda York CMV AB IGMon 2021 Cytomegalovirus (CMV) Ab, IgM 35.5 AU/mL Critically high 0.0-29.9 [facility] Comment on above: Result Comment: Nega tive <30.0 Equivocal 30.0 - 34.9 Positive >34.9 A positive result is generally indicative of acute infection, reactivation or persistent IgM production. Performed By: #### S LUIGI MELO #### [facility] [address] [place] [address] Dr. Manda York CMV AB, IGGon 2021 Cytomegalovirus (CMV) Ab, IgG 6.30 U/mL Critically high 0.00-0.59 [facility] Comment on above: Result Comment: Nega tive <0.60 Equivocal 0.60 - 0.69 Positive >0.69 Performed By: #### S [facility] #### [facility] [address] [place] [address] Dr. Manda York CBC AUTO DIFFon 10-03-2021 BASO # 0.1 103/ul Normal 0.0-0.1 [facility] Comment on above: Performed By: #### C BC #### [facility] [address] [place] [address] Dr. Manda York Basophils/100 WBC (Bld) 0.7 % Normal 0.2-2.0 [facility] Comment on above: Performed By: #### C BC #### [facility] [address] [place] [address] Dr. Manda York EO # 0.2 103/ul Normal 0.0-0.7 [facility] Comment on above: Performed By: #### C BC #### [facility] [address] [place] [address] Dr. aMnda York Eosinophils/100 WBC (Bld) 2.0 % Normal 0.9-7.0 [facility] Comment on above: Performed By: #### C BC #### [facility] [address] [place] [address] Dr. Manda York Erythrocyte distribution width (RBC) [Ratio] 14.4 % Normal 11.0-15.0 [facility] Comment on above: Performed By: #### C BC #### [facility] [address] [place] [address] Dr. Manda Yokr Hematocrit (Bld) [Volume fraction] 37.2 % Normal 36.0-48.0 [facility] Comment on above: Performed By: #### C BC #### [facility] [address] [place] [address] Dr. Manda York Hemoglobin (Bld) [Mass/Vol] 12.3 g/dL Normal 12.0-16.0 [facility] Comment on above: Performed By: #### C BC #### [facility] [address] [place] [address] Dr. Manda York IG # 0.02 10e3/ul Normal 0.00-0.03 [facility] Comment on above: Performed By: #### C BC #### [facility] [address] [place] [address] Dr. Manda York IG % 0.2 % Normal 0.0-0.5 [facility] Comment on above: Performed By: #### C BC #### [facility] [address] [place] [address] Dr. Manda York LYMPH # 2.1 103/ul Normal 1.2-3.8 [facility] Comment on above: Performed By: #### C BC #### [facility] [address] [place] [address] Dr. Manad York Lymphocytes/100 WBC (Bld) 26.4 % Normal 20.5-60.0 [facility] Comment on above: Performed By: #### C BC #### [facility] [address] [place] [address] Dr. Manda York MANUAL DIFF REQ NO Normal [facility] Comment on above: Performed By: #### C BC #### [facility] [address] [place] [address] Dr. Manda York MCH (RBC) [Entitic mass] 29.2 pg Normal 26.7-34.0 [facility] Comment on above: Performed By: #### C BC #### [facility] [address] [place] [address] Dr. Manda York MCHC (RBC) [Mass/Vol] 33.1 g/dL Normal 29.9-35.2 [facility] Comment on above: Performed By: #### C BC #### [facility] [address] [place] [address] Dr. Manda York MCV (RBC) [Entitic vol] 88.4 fL Normal 81.0-99.0 [facility] Comment on above: Performed By: #### C BC #### [facility] [address] [place] [address] Dr. Manda York MONO # 0.5 103/ul Normal 0.3-0.8 [facility] Comment on above: Performed By: #### C BC #### [facility] [address] [place] [address] Dr. Manda York Monocytes/100 WBC (Bld) 6.7 % Normal 1.7-12.0 [facility] Comment on above: Performed By: #### C BC #### [facility] [address] [place] [address] Dr. Manda York NEUT # 5.2 103/ul Normal 1.4-6.5 [facility] Comment on above: Performed By: #### C BC #### [facility] [address] [place] [address] Dr. Manda York Neutrophils/100 WBC (Bld) 64.0 % Normal 43.0-75.0 [facility] Comment on above: Performed By: #### C BC #### [facility] [address] [place] [address] Dr. Manda York Platelet mean volume (Bld) [Entitic vol] 10.5 fL Normal 9.5-13.5 [facility] Comment on above: Performed By: #### C BC #### [facility] [address] [place] [address] Dr. Manda York PLT 265 103/ul Normal 150-450 [facility] Comment on above: Performed By: #### C BC #### [facility] [address] [place] [address] Dr. Manda York RBC 4.21 106/ul Normal 4.20-5.40 [facility] Comment on above: Performed By: #### C BC #### [facility] [address] [place] [address] Dr. Manda York WBC 8.1 103/ul Normal 4.0-11.0 [facility] Comment on above: Performed By: #### C BC #### [facility] [address] [address] [address] Manda York CRPon 10-03-2021 CRP [Mass/Vol] mg/L Normal <=1.0 [facility] Comment on above: Performed By: #### F T4 #### [facility] [address] [address] [address] Manda York SED RATE DONALSONVILLEERGREN 2021 SED RATE 34 mm/hr Critically high <=20 [facility] Comment on above: Performed By: #### C BC #### [facility] [address] [address] [address] Manda York CHLORIDE (POC)Ordered By: Jae Black on 10-07-2020 Chloride [Moles/Vol] 106 mmol/L 98 - 10 7 mmol/L [employer] Phone: Catheterization and angiogra phy procedure details panelOrdered By: Jonas Black on 10-07-2020 Cardiac Diagnostic Report Demographics Patient TERA Torres Date of Study 10/07/2020 Name Date of 1980 Gender Female Age 40 year(s) Race Room [id number]^GINO Height: 67 inch, 170.18 cm Number Corporate [id number] Weight: 234 pounds, 106.1 kg ID # Patient [id number] BSA: 2.16 m^2 BMI: 36.65 kg/m^2 Acct # MR # [id number] Performing Jonas Black Physician Referring # Physician [...] Right coronary angiography. Contrast Material: - Isovue 64574 ml Fluoroscopy Time: Diagnostic: 2:12 minutes. Total: [...] assessed as CCS II according to the Slovenian clinical classification. Hemodynamics Condition: Baseline Room Air [...] + + !Aortic (more content not included)... [employer] Phone: Gwyn Norris Incoming Cardio Results From [facility]/ - 10/07/2020 10:37 AM EDT Cardiac Diagnostic Report Demographics Patient TERA Torres Date of Study 10/07/2020 Name Date of 1980 Gender Female Age 40 year(s) Race Room [id number]^LEYDI^JONAS Height: 67 inch, 170.18 cm Number Corporate [id number] Weight: 234 pounds, 106.1 kg ID # Patient [id number] BSA: 2.16 m^2 BMI: 36.65 kg/m^2 Acct # MR # [id number] Performing Jonas Black Physician Referring # Physician [...] Right coronary angiography. Contrast Material: - Isovue 01194 ml Fluoroscopy Time: Diagnostic: 2:12 minutes. Total: [...] assessed as CCS II according to the Slovenian clinical classification. Hemodynamics Condition: Baseline Room Air [...] +--------- + + Shunts Oxygen Values O2 Ovygukbb068.4O2 Apktlqauych550.52 [employer] Phone: [employer] Phone: [employer] Phone: Creatinine W/GFR Point of Ca reOrdered By: Jonas Black on 10-07-2020 Creatinine [Mass/Vol] 0.64 mg/dL 0.51 - 1.19 mg/dL [employer] Phone: GFR Non- >60 >60 mL/min [employer] Phone: GFR/1.73 sq M.predicted MDRD (S/P/Bld) [Vol rate/Area] mL/min/{1.73_m2} >60 mL/min [employer] Phone: GFR/1.73 sq M.predicted MDRD (S/P/Bld) [Vol rate/Area] [employer] Phone: Comment on above: Average GFR for 40-4 9 years old: 99 mL/min/1.73sq m Chronic Kidney Disease: <60 mL/min/1.73sq m Kidney failure: <15 mL/min/1.73sq m eGFR calculated using average adult body mass. Additional eGFR calculator available at: http://www.CardLab.Remote/multiple_crcl_2012.htm Hemoglobin and hematocrit, b loodOrdered By: Jonas Black on 10-07-2020 Hematocrit (Bld) [Volume fraction] 41 % 36 - 46 % [employer] Phone: Hemoglobin (Bld) [Mass/Vol] 14.0 g/dL 12.0 - 16.0 g/dL [employer] Phone: No Panel InformationOrdered By: Jonas Black on 10-07-2020 [employer] Phone: POCT GlucoseOrdered By: Anu Black on 10-07-2020 Glucose [Mass/Vol] 98 mg/dL 74 - 100 mg/dL [employer] Phone: POCT urine pregnancyOrdered By: Jonas Black on 10-07-2020 Beta HCG ( test) Ql (U) Negative NEGATIVE [employer] Phone: Comment on above: Specimens with hCG l evels near the threshold of the test (25 mIU/mL) may give a negative or indeterminate result. In such cases, another test should be performed with a new specimen in 48-72 hours. If early is suspected clinically in this setting, correlation with quantitative serum b-hCG level is suggested. [employer] Phone: POTASSIUM (POC)Ordered By: Al Black on 10-07-2020 Potassium [Moles/Vol] 3.8 mmol/L 3.5 - 4.5 mmol/L [employer] Phone: Platelet Counton 10-07-2020 Platelets (Bld) [#/Vol] 299 10*3/uL Normal 138-453 [facility] Comment on above: Performed By: #### P LT #### [facility] [address] [place] [address] Small Engine Mechanic: Rick Serrano MD Platelet countOrdered By: Jae Black on 10-07-2020 Platelets (Bld) [#/Vol] 299 10*3/uL [employer] Phone: [employer] Phone: SODIUM (POC)Ordered By: Anu Black on 10-07-2020 Sodium [Moles/Vol] 141 mmol/L 138 - 146 mmol/L [employer] Phone: Coding Summary.on 01-12-2019 Coding Summary. CODING DATE: 01/12/2019 [facility] STATUS: Home (Routine DC) PAYOR: Medicaid [...] mass index (BMI) 34.0-34.9, adult Z79.899 Other 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 (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 However, the narrative phrase printed from the coding software may appear abbreviated, or result in slightly different terminology. Coded By: Luz Judd Date Saved: 01/12/2019 10:25 am Normal [facility] Coding Summary. CODING DATE: 01/12/2019 [facility] STATUS: Home (Routine DC) PAYOR: Medicaid [...] Revised Date Saved: 01/12/2019 10:25 am Normal [facility] XR Chest 2 Viewson 9 XR Chest [...] Transcribed by: BILL Technologist: ZOILA Normal [facility] Auto Diffon 01-11-2019 Basophils/100 WBC (Bld) 0.8 % Normal 0.0-2.0 [facility] Comment on above: Order Comment: Order Added by Discern Expert. Performed By: #### 1 [id number], 6587477, 7946392, 7645725, 05460212, 8045403, 1881064, 6041592, 6977484, 26106724, 8922123 #### [facility] [address] [place] [address] Basophils/Leukocytes Auto (Bld) [Pure # fraction] 0.1 E9/L Normal 0.0-0.2 [facility] Comment on above: Order Comment: Order Added by Discern Expert. Performed By: #### 1 7748423, 3162088, 5719127, 1690695, 47272295, 6559866, 1756932, 0459007, 6102628, 46009876, 8148736 #### [facility] [address] [place] [address] Eosinophils/100 WBC (Bld) 1.9 % Normal 0.0-8.0 [facility] Comment on above: Order Comment: Order Added by Discern Expert. Performed By: #### 1 2017100, 4281289, 8119165, 8385772, 88456250, 3105679, 8092642, 5467937, 5796238, 38805701, 1283912 #### [facility] [address] [place] [address] Eosinophils/Leukocytes Auto (Bld) [Pure # fraction] 0.1 E9/L Normal 0.0-0.5 [facility] Comment on above: Order Comment: Order Added by Discern Expert. Performed By: #### 1 9639849, 1881117, 6661150, 2674739, 60297019, 8780222, 5630734, 2443010, 4692555, 91223521, 8353399 #### [facility] [address] [place] [address] Lymphocytes/100 WBC (Bld) 28.0 % Normal 14.0-50.0 [facility] Comment on above: Order Comment: Order Added by Discern Expert. Performed By: #### 1 4590937, 8737409, 1067026, 3560934, 61531905, 9322232, 9891037, 1285028, 5531121, 57128316, 9343979 #### [facility] [address] [place] [address] Lymphocytes/Leukocytes Auto (Bld) [Pure # fraction] 2.2 E9/L Normal 1.0-4.0 [facility] Comment on above: Order Comment: Order Added by Discern Expert. Performed By: #### 1 6733757, 0213539, 1288407, 6174153, 35058696, 2258198, 2958516, 0628951, 6189784, 57059595, 9247679 #### [facility] [address] [place] [address] Monocytes/100 WBC (Bld) 7.0 % Normal 4.0-14.0 [facility] Comment on above: Order Comment: Order Added by Discern Expert. Performed By: #### 1 8023766, 1124802, 9826886, 2863890, 47364515, 6249485, 9918193, 2463661, 5656277, 62484049, 2492593 #### [facility] [address] [place] [address] Monocytes/Leukocytes Auto (Bld) [Pure # fraction] 0.6 E9/L Normal 0.2-1.0 [facility] Comment on above: Order Comment: Order Added by Discern Expert. Performed By: #### 1 9123055, 2004895, 0970844, 7712766, 46210760, 0188758, 4201730, 1322920, 1720753, 46097824, 3480953 #### [facility] [address] [place] [address] Neutrophils/100 WBC (Bld) 62.3 % Normal 36.0-75.0 [facility] Comment on above: Order Comment: Order Added by Discern Expert. Performed By: #### 1 8512103, 4145999, 7749071, 2146377, 15000864, 3078986, 1004753, 3576653, 1240685, 55579420, 4101056 #### [facility] [address] [place] [address] Neutrophils/Leukocytes Auto (Bld) [Pure # fraction] 4.9 E9/L Normal 2.0-7.5 [facility] Comment on above: Order Comment: Order Added by Discern Expert. Performed By: #### 1 1349306, 8098295, 0650944, 3435582, 88688107, 3568789, 1883108, 6522971, 0175653, 49197539, 4510146 #### [facility] [address] [place] [address] BMPon 01-11-2019 Creatinine [Mass/Vol] 0.7 mg/dL Normal 0.5-1.3 [facility] Comment on above: Performed By: #### 1 9767576, 2972531, 4016643, 7944220, 72777585, 2054373, 4153565, 9442642, 6560409, 49175880, 8775312 #### [facility] [address] [place] [address] Urea nitrogen [Mass/Vol] 11 mg/dL Normal 5-21 [facility] Comment on above: Performed By: #### 1 3510123, 9754155, 2745426, 4597731, 12482446, 2809622, 0306528, 5077944, 0737275, 95546593, 9293205 #### [facility] [address] [place] [address] Urea nitrogen/Creatinine [Mass ratio] 16 No Units Normal 10-20 [facility] Comment on above: Performed By: #### 1 9237273, 1764112, 9501244, 5570190, 42717744, 6190278, 9860081, 9975371, 7835857, 93222231, 0888848 #### [facility] [address] [place] [address] Anion gap [Moles/Vol] 14 mmol/L Normal 6-16 [facility] Comment on above: Performed By: #### 1 4203905, 2414303, 0889930, 3780258, 44588759, 7867126, 7719545, 5355561, 3956374, 64316745, 7537209 #### [facility] [address] [place] [address] Calcium [Mass/Vol] 8.9 mg/dL Normal 8.9-11.1 [facility] Comment on above: Performed By: #### 1 9016513, 8107432, 2182509, 6218725, 99541298, 5734702, 7402480, 3344250, 4349806, 33985744, 1733480 #### [facility] [address] [place] [address] Chloride [Moles/Vol] 107 mmol/L Normal 101-111 [facility] Comment on above: Performed By: #### 1 5408143, 0282167, 8857195, 7779327, 21063538, 0752153, 3055383, 5386570, 4188945, 97672364, 0396500 #### [facility] [address] [place] [address] CO2 [Moles/Vol] 22 mmol/L Normal 21-31 [facility] Comment on above: Performed By: #### 1 1988539, 1908082, 3175563, 9581207, 88918336, 5986664, 1939851, 1684187, 9395650, 96195359, 1745189 #### [facility] [address] [place] [address] Glucose [Mass/Vol] 122 mg/dL Normal 55-199 [facility] Comment on above: Result Comment: If t his glucose result represents a fasting glucose, interpretation should refer to the following reference range: 55-99 mg/dL Performed By: #### 1 4026516, 0624086, 2151018, 4494844, 93243933, 5231559, 5732637, 9250897, 0104802, 68457740, 7457260 #### [facility] [address] [place] [address] Potassium [Moles/Vol] 3.8 mmol/L Normal 3.5-5.3 [facility] Comment on above: Performed By: #### 1 1343488, 8937844, 5736979, 1655112, 06950557, 1836051, 9150108, 9942950, 7372103, 77219208, 2630065 #### [facility] [address] [place] [address] Sodium [Moles/Vol] 139 mmol/L Normal 135-145 [facility] Comment on above: Performed By: #### 1 1061063, 9082410, 7155522, 7235725, 99124543, 5386581, 7115692, 9040241, 0500518, 00727377, 8462925 #### [facility] [address] [place] [address] CBC w/ Auto Diffon 9 Erythrocyte distribution width (RBC) [Ratio] 14.0 % Normal 10.9-14.2 [facility] Comment on above: Performed By: #### 1 5720545, 4045671, 1342201, 4293767, 46405124, 9283167, 0046715, 5304267, 7033698, 09507736, 6466362 #### [facility] [address] [place] [address] Hematocrit (Bld) [Volume fraction] 39.9 % Normal 34.0-46.0 [facility] Comment on above: Performed By: #### 1 9557594, 9659644, 7990502, 0078500, 05011202, 6707875, 1326076, 2613098, 8023069, 34326487, 0407284 #### [facility] [address] [place] [address] Hemoglobin (Bld) [Mass/Vol] 13.5 g/dL Normal 12.0-16.0 [facility] Comment on above: Performed By: #### 1 6726364, 7508800, 0447037, 6805982, 47172040, 1901151, 6838347, 6463853, 9830008, 82453859, 3077790 #### [facility] [address] [place] [address] MCH (RBC) [Entitic mass] 29.4 pg Normal 27.0-34.0 [facility] Comment on above: Performed By: #### 1 1010976, 0875429, 0259271, 0242934, 76303219, 2866549, 4525685, 5019099, 8197059, 60644074, 7242250 #### [facility] [address] [place] [address] MCHC (RBC) [Mass/Vol] 33.7 g/dL Normal 33.3-35.7 [facility] Comment on above: Performed By: #### 1 3643395, 2896994, 1651047, 7004671, 43894732, 6175007, 1001916, 9866715, 2552346, 32317947, 5522539 #### [facility] [address] [place] [address] MCV (RBC) [Entitic vol] 87.4 fL Normal 80.0-100.0 [facility] Comment on above: Performed By: #### 1 4831481, 7770924, 1736709, 3988676, 50255029, 2671563, 1598323, 9224089, 7458289, 85349018, 7659886 #### [facility] [address] [place] [address] Platelet mean volume (Bld) [Entitic vol] 8.5 fL Normal 6.4-10.8 [facility] Comment on above: Performed By: #### 1 8939166, 5291942, 1458833, 3575350, 48829278, 7697760, 4822111, 5170236, 0458689, 67852140, 0972521 #### [facility] [address] [place] [address] Platelets (Bld) [#/Vol] 244.0 E9/L Normal 150.0-500.0 [facility] Comment on above: Performed By: #### 1 0324973, 6907650, 9633207, 6534499, 65872645, 1824183, 5427637, 9927536, 4502060, 03106715, 7636125 #### [facility] [address] [place] [address] RBC (Bld) [#/Vol] 4.6 E12/L Normal 4.3-5.9 [facility] Comment on above: Performed By: #### 1 7480303, 6486079, 0953155, 8568246, 51949551, 1073961, 0196336, 8301580, 7198609, 42341154, 3575040 #### [facility] [address] [place] [address] WBC corrected for nucl RBC Auto (Bld) [#/Vol] 7.9 E9/L Normal 4.0-11.0 [facility] Comment on above: Performed By: #### 1 2754116, 7780885, 9415099, 6716788, 25740020, 9451040, 0992264, 0451357, 9265730, 17794037, 8913585 #### [facility] [address] [place] [address] D-Dimeron 01-11-2019 Fibrin D-dimer FEU (PPP) [Mass/Vol] 265 ng/mL Normal 215-500 [facility] Comment on above: Result Comment: This D-Dimer [...] infections Liver cirrhosis Performed By: #### 1 7379642, 0993497, 8129568, 9125554, 99777604, 4062481, 1639206, 4358486, 5309494, 88451920, 7785204 #### [facility] [address] [place] [address] ED Clinical Summaryon 2018 ED Clinical Summary [address] [address] ED Clinical Summary Person Information Name: ARIADNA HALEY Roger/[facility] Age: 38 Years : 1980 12:00 AM Sex: Female Language: American PCP: Charles Nicole DO Marital Status: Single Phone: [phone] Visit Id: Visit Reason: Chest pain; CHEST [...] 01/11/2019 6:42 PM 01/11/2019 6:42 PM ADDRESS: [address] [place] [address] [place] [id number] PHYS DOC NOTES: MEDICAL INFORMATION: Prescriptions Given: PATIENT EDUCATION INFORMATION: Instructions: Smoking Cessation; Chest Pain (Nonspecific) Follow up: With: Address: When: [address] [place] [address] Business (1) Within 2 to 3 days Comments: Return to ED if symptoms worsen DIAGNOSIS: 1:Chest pain Normal [facility] ED Note-Physicianon 01-12-20 ED Note-Physician Basic Information [...] prescription medications Follow-up With When Contact Information [facility] Within 2 to [address] [place] [address] [facility] (1) Additional Instructions: Return to [...] Auto: 28 % (01/11/19 16:46:00 EDT) [place] Auto: 7 % (01/11/19 16:46:00 EDT) Eos Auto: 1.9 % (01/11/19 16:46:00 EDT) Basophil Auto: 0.8 % (01/11/19 16:46:00 EDT) Neutro Absolute: 4.9 E9/L (01/11/19 16:46:00 EDT) Lymph Absolute: 2.2 E9/L (01/11/19 16:46:00 EDT) [place] Absolute: 0.6 E9/L (01/11/19 16:46:00 EDT) Eos [...] Results EC01/11/19: SINUS RHYTHM RATE 84, NORMAL HI AND QRS, NO ST ELEVATION OR DEPRSSION, NORMAL AXIS, NORMAL QTC NORMAL ECG Signed By: Orin Browne DO 01/11/2019 15:54:18 Normal [facility] Comment on above: Result Comment: Elec tronically [...] and skin patches. Some may be available [id number] and others require a prescription. ? Antidepressant [...] Document Reviewed: 08/18/2012 ExitCare? Patient Information ?2014 [employer]. This information is not intended to replace [...] Document Reviewed: 12/13/2008 ExitCare? Patient Information ?2015 [employer]. This information is not intended to replace advice given to you by your health care provider. Make sure you discuss any questions you have with your health care provider. Normal [facility] ED Patient Summaryon 019 ED Patient Summary [place] [id number] Patient Discharge Instructions Person Information Name: ARIADNA HALEY Age: 38 Years Arrival Date: 01/11/2019 3:44 PM Discharge Diagnosis: 1:Chest pain Primary Care Physician: Charles Nicole DO Provider Information Primary Provider: Orin Browne DO [employer] Clinical Programmer:None The exam and treatment you received in the Emergency Department were for an urgent problem and are not intended as complete care. It is important that you follow up with a doctor, nurse practitioner, or physician?s assistant guest services manager for ongoing care. If your symptoms [...] Follow-up Instructions: With: Address: When: Charles Nicole [address] [place] [address] Business (1) Within 2 to 3 days [...] opioids can be used to help relieve qlcxyhgp-qx-ucorsl pain and are often prescribed following a [...] with addiction, tell your health child care worker and ask for guidance or call [facility]?S National Helpline at 3-321-164-TOTL. j Source: [place] Department of Health and Human Services/Center for Disease Control & Prevention [facility] Medications Given: Medication Dose Route No medications found. Medication Information: Medications to Continue with No Changes Other Medications metformin (metformin 500 mg ER Tab) 250 Milligram By Mouth 2 times a day. Comment: Pharmacy Information: Thank you for choosing [facility] Patient Education Materials: Smoking Cessation Quitting smoking [...] and skin patches. Some may be available vics-plh-vjjcmnl and others require a prescription. ? Antidepressant [...] Document Reviewed: 08/18/2012 ExitCare? Patient Information ?2015 [employer]. This information is not intended to replace [...] Document Reviewed: 12/13/2008 ExitCare? Patient Information ?2014 [employer]. This information is not intended to replace advice given to you by your health care provider. Make sure you discuss any questions you have with your health care provider. TERA Dorantes NICOLE B , have received the following patient education materials/instruction s and have verbalized understanding: Patient Education Materials: Smoking Cessation; Chest Pain (Nonspecific) Follow-up Instructions: With: Address: When: [place] [address] Business (1) Within 2 to 3 days Comments: Return to ED if symptoms worsen Prescriptions: Patient Signature Date Clinician/Nurse Signature Date 01/11/19 18:42:28 Normal [facility] Progress Note-Nurseon 2018 Progress Note-Nurse Pt explained discharge instructions and voiced understanding. Pt sts she will follow up with her PCP and denies any furthe questions at this time. Normal [facility] Troponin 0 Hr.on 01-11-2019 Troponin I.cardiac [Mass/Vol] ng/mL Normal <=0.03 [facility] Comment on above: Result Comment: New Troponin Assay 10/05/13 [place] Cutoff value > or = 0.03 ng/mL in conjunction with clinical conditions of myocardial infarction. (www.escardio.org/guidelines) Performed By: #### 1 3448499, 7019130, 7038292, 9711468, 87106005, 0681460, 0095970, 9898903, 3849884, 83058858, 9925453 #### [facility] [address] [place] [address] eGFRon 01-11-2019 GFR/1.73 sq M predicted among blacks MDRD (S/P/Bld) [Vol rate/Area] mL/min/{1.73_m2} Normal >=59 [facility] Comment on above: Order Comment: Order added by Discern Expert. Result Comment: eGFR is race adjusted. AA=. Performed By: #### 1 7958525, 7853339, 4655009, 2016242, 46443484, 4939377, 8568183, 7786165, 0650594, 27764155, 7973179 #### [facility] [address] [place] [address] GFR/1.73 sq M predicted among non-blacks MDRD (S/P/Bld) [Vol rate/Area] mL/min/{1.73_m2} Normal >=59 [facility] Comment on above: Order Comment: Order added by Discern Expert. Result Comment: I[employer] And Gl[employer] Maker anthony kidney disease could be indicated at eGFR's of less than 60 mL/min/1.73m2. Kidney failure is indicated at less than 15 mL/min/1.73m2. Performed By: #### 1 9718390, 1437512, 7499268, 7663982, 17687779, 0728828, 1517972, 3079655, 6875434, 44100868, 6894717 #### [facility] [address] [place] [address] SPINE, LUMBOSACRAL CMPLT(JAMAR DING)on 12-05-2018 SPINE, LUMBOSACRAL CMPLT(BENDING) Patient Name: ARIADNA HALEY STUDY: SPINE, LUMBOSACRAL; CMPLT(BENDING); 12/05/2018 1:47 pm INDICATION: LUMBAR XR. COMPARISON: None. ACCESSION NUMBER(S): [id number] ORDERING CLINICIAN: KADE RICHARDSON FINDINGS: No lumbar spine fracture. Scattered small endplate osteophytes. Vertebral body and disc space heights are are maintained. 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 No spondylolisthesis. No instability on flexion or extension. IMPRESSION: Degenerative changes of the lumbar spine without instability. Electronically signed by: EARNESTINE MANUEL MD Normal [facility] Coding Summary.on 09-15-2018 Coding Summary. CODING DATE: 09/15/2018 FINAL [facility] STATUS: Home (Routine DC) PAYOR: Medicaid [...] F17.210 Nicotine dependence, cigarettes, uncomplicated Z79.899 Other 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 (current) drug therapy PYMT PROC PG STAT DESCRIPTION DOCTOR NAME DATE NOTE: The code number assigned matches the documented diagnosis and / or procedure in the patient's chart. However, the narrative phrase printed from the coding software may appear abbreviated, or result in slightly different terminology. Coded By: Luz Judd Date Saved: 09/15/2018 07:15 am Normal [facility] Auto Diffon 09-14-2018 Basophils/100 WBC (Bld) 0.6 % Normal 0.0-2.0 [facility] Comment on above: Order Comment: Order Added by Discern Expert. Performed By: #### 1 2086692, 9754483, 8171201, 6559186, 77034468, 6686031, 7080920, 1158071, 2468912, 07783812, 1966314 #### [facility] [address] [place] [address] Basophils/Leukocytes Auto (Bld) [Pure # fraction] 0.1 E9/L Normal 0.0-0.2 [facility] Comment on above: Order Comment: Order Added by Discern Expert. Performed By: #### 1 2164162, 6731881, 3400182, 0830439, 81221377, 8607858, 4234853, 9374876, 0797104, 08659526, 1101787 #### [facility] [address] [place] [address] Eosinophils/100 WBC (Bld) 2.2 % Normal 0.0-8.0 [facility] Comment on above: Order Comment: Order Added by Discern Expert. Performed By: #### 1 0621736, 4574551, 4790756, 9607414, 14609581, 7821123, 9237975, 6917577, 6463157, 65123265, 0479085 #### [facility] [address] [place] [address] Eosinophils/Leukocytes Auto (Bld) [Pure # fraction] 0.2 E9/L Normal 0.0-0.5 [facility] Comment on above: Order Comment: Order Added by Discern Expert. Performed By: #### 1 6926964, 4776395, 1060125, 2588522, 39520483, 6338493, 0000371, 8975542, 8770838, 97472624, 2106048 #### [facility] [address] [place] [address] Lymphocytes/100 WBC (Bld) 30.6 % Normal 14.0-50.0 [facility] Comment on above: Order Comment: Order Added by Discern Expert. Performed By: #### 1 2677007, 0932031, 3917325, 7396737, 23551111, 4621137, 6881680, 5015147, 3253059, 28812334, 1355916 #### [facility] [address] [place] [address] Lymphocytes/Leukocytes Auto (Bld) [Pure # fraction] 3.0 E9/L Normal 1.0-4.0 [facility] Comment on above: Order Comment: Order Added by Discern Expert. Performed By: #### 1 7906458, 9971332, 5061911, 0088400, 48806085, 5512070, 1622257, 8569313, 5881463, 88314751, 0783452 #### [facility] [address] [place] [address] Monocytes/100 WBC (Bld) 7.2 % Normal 4.0-14.0 [facility] Comment on above: Order Comment: Order Added by Discern Expert. Performed By: #### 1 8066262, 0509167, 0857237, 5039044, 97548574, 7772786, 7421412, 1596708, 2838542, 10418283, 1814115 #### [facility] [address] [place] [address] Monocytes/Leukocytes Auto (Bld) [Pure # fraction] 0.7 E9/L Normal 0.2-1.0 [facility] Comment on above: Order Comment: Order Added by Tosin Expert. Performed By: #### 1 6455731, 4676066, 1084751, 7095966, 48239282, 6892480, 3759397, 2063482, 8782057, 91900464, 1295438 #### [facility] [address] [place] [address] Neutrophils/100 WBC (Bld) 59.4 % Normal 36.0-75.0 [facility] Comment on above: Order Comment: Order Added by Discern Expert. Performed By: #### 1 0645318, 4099389, 3887476, 1125159, 58063401, 9020456, 1104893, 9646748, 3614127, 50046221, 8968757 #### [facility] [address] [place] [address] Neutrophils/Leukocytes Auto (Bld) [Pure # fraction] 5.9 E9/L Normal 2.0-7.5 [facility] Comment on above: Order Comment: Order Added by Discern Expert. Performed By: #### 1 5625678, 3294951, 0305450, 9771734, 71785106, 0951747, 5490533, 4675446, 4592228, 29505697, 9596332 #### [facility] [address] [place] [address] BMPon 09-14-2018 Creatinine [Mass/Vol] 0.6 mg/dL Normal 0.5-1.3 [facility] Comment on above: Performed By: #### 1 8181497, 8694402, 2492938, 2543017, 29020244, 9541592, 7057079, 4256271, 0419229, 38025788, 5929768 #### [facility] [address] [place] [address] Urea nitrogen [Mass/Vol] 15 mg/dL Normal 5-21 [facility] Comment on above: Performed By: #### 1 8278059, 4819766, 2125178, 1076875, 56208665, 4532756, 5688177, 5921191, 1473203, 37452037, 0424983 #### [facility] [address] [place] [address] Urea nitrogen/Creatinine [Mass ratio] 25 No Units High 10-20 [facility] Comment on above: Performed By: #### 1 6327025, 5560784, 0977794, 4760178, 54016583, 9573885, 7687475, 6204048, 9071483, 97764360, 3527358 #### [facility] [address] [place] [address] Anion gap [Moles/Vol] 13 mmol/L Normal 6-16 [facility] Comment on above: Performed By: #### 1 9085288, 0439498, 4721426, 2669951, 15166592, 0981695, 5993198, 4718910, 6857985, 20619388, 0248865 #### [facility] [address] [place] [address] Calcium [Mass/Vol] 9.5 mg/dL Normal 8.9-11.1 [facility] Comment on above: Performed By: #### 1 9754652, 8661815, 2293471, 9990324, 55349054, 7624218, 4910940, 3401811, 9643642, 09926620, 7399493 #### [facility] [address] [place] [address] Chloride [Moles/Vol] 103 mmol/L Normal 101-111 [facility] Comment on above: Performed By: #### 1 2292394, 3970550, 6722067, 1444870, 68159466, 7031888, 4328641, 8690302, 2344347, 58584033, 3965008 #### [facility] [address] [place] [address] CO2 [Moles/Vol] 24 mmol/L Normal 21-31 [facility] Comment on above: Performed By: #### 1 2321472, 1074271, 3152889, 9016374, 38856508, 2998355, 4428100, 6772275, 2177391, 73251655, 9740009 #### [facility] [address] [place] [address] Glucose [Mass/Vol] 102 mg/dL Normal 55-199 [facility] Comment on above: Result Comment: If t his glucose result represents a fasting glucose, interpretation should refer to the following reference range: 55-99 mg/dL Performed By: #### 1 5788555, 2563514, 1270212, 1118379, 25149673, 5004850, 9507991, 6862266, 2068637, 98756590, 7043396 #### [facility] [address] [place] [address] Potassium [Moles/Vol] 3.6 mmol/L Normal 3.5-5.3 [facility] Comment on above: Performed By: #### 1 6777644, 9827527, 5022631, 9229716, 16793767, 4051497, 8093122, 6761072, 8506973, 61077956, 4793041 #### [facility] [address] [place] [address] Sodium [Moles/Vol] 136 mmol/L Normal 135-145 [facility] Comment on above: Performed By: #### 1 9084589, 4790433, 3199187, 7432353, 39351652, 1752091, 8672575, 8791621, 8893512, 37547742, 8557587 #### [facility] [address] [place] [address] CBC w/ Auto Diffon 9 Erythrocyte distribution width (RBC) [Ratio] 14.2 % Normal 10.9-14.2 [facility] Comment on above: Performed By: #### 1 2963869, 6604572, 3558173, 1192426, 66770516, 3411443, 1770228, 6593213, 3359005, 36259845, 8558360 #### [facility] [address] [place] [address] Hematocrit (Bld) [Volume fraction] 39.4 % Normal 34.0-46.0 [facility] Comment on above: Performed By: #### 1 1387426, 8711218, 7791318, 7206567, 40489205, 4888587, 8179220, 6350291, 9137734, 29316783, 6861356 #### [facility] [address] [place] [address] Hemoglobin (Bld) [Mass/Vol] 13.3 g/dL Normal 12.0-16.0 [facility] Comment on above: Performed By: #### 1 9114517, 0965439, 4632778, 2172130, 52024014, 1187396, 2773483, 1501241, 7210840, 19878544, 4075949 #### [facility] [address] [place] [address] MCH (RBC) [Entitic mass] 29.2 pg Normal 27.0-34.0 [facility] Comment on above: Performed By: #### 1 1677326, 7538578, 6064204, 2980740, 71044341, 7467346, 8886819, 5162672, 6791991, 98636668, 0952732 #### [facility] [address] [place] [address] MCHC (RBC) [Mass/Vol] 33.8 g/dL Normal 33.3-35.7 [facility] Comment on above: Performed By: #### 1 8977745, 1944312, 5328687, 0168035, 47889576, 7934593, 2338247, 8209282, 1075954, 29103612, 8209957 #### [facility] [address] [place] [address] MCV (RBC) [Entitic vol] 86.6 fL Normal 80.0-100.0 [facility] Comment on above: Performed By: #### 1 1181346, 7806034, 4033461, 5197258, 19550452, 1859595, 6109314, 3019030, 7004918, 79325883, 6015496 #### [facility] [address] [place] [address] Platelet mean volume (Bld) [Entitic vol] 8.8 fL Normal 6.4-10.8 [facility] Comment on above: Performed By: #### 1 7290438, 7735586, 0970840, 1812257, 11678665, 6734252, 6830445, 8751780, 7122005, 03220197, 0984930 #### [facility] [address] [place] [address] Platelets (Bld) [#/Vol] 307.0 E9/L Normal 150.0-500.0 [facility] Comment on above: Performed By: #### 1 6525670, 6069740, 8970615, 7886887, 16613267, 5264740, 5233633, 4741661, 7362821, 66573279, 1151717 #### [facility] [address] [place] [address] RBC (Bld) [#/Vol] 4.6 E12/L Normal 4.3-5.9 [facility] Comment on above: Performed By: #### 1 1661815, 8533052, 7374503, 4868295, 35440296, 2331529, 2305898, 6154915, 8683054, 23367590, 9264212 #### [facility] [address] [place] [address] WBC corrected for nucl RBC Auto (Bld) [#/Vol] 9.9 E9/L Normal 4.0-11.0 [facility] Comment on above: Performed By: #### 1 0545040, 4775680, 2042447, 1079271, 39511755, 0768018, 2575147, 3860787, 5733192, 57525586, 9390641 #### [facility] [address] [place] [address] CKon 09-14-2018 CK [Catalytic activity/Vol] 53 Int._Unit/L Normal 14-261 [facility] Comment on above: Performed By: #### 1 9375049, 9298660, 3059720, 9229555, 75185303, 1143613, 8203583, 1549361, 8322166, 27501264, 1981435 #### [facility] [address] [place] [address] ED Clinical Summaryon 2018 ED Clinical Summary [address] [address] ED Clinical Summary Person Information Name: ARIADNA HALEY [place] Age: 37 Years : 1980 12:00 AM Sex: Female Language: American PCP: Charles Nicole DO Marital Status: Single Phone: [phone] Visit Id: Visit Reason: Anxiety; Paraesthesia; NUMBNESS [...] 09/14/2018 12:17 AM 09/14/2018 12:17 AM ADDRESS: [address] [place] [id number] PHYS DOC NOTES: MEDICAL INFORMATION: Prescriptions Given: Prescription Display gabapentin (gabapentin 100 mg Cap) 100 mg = 1 cap(s), Oral, Daily, X 7 day(s), # 7 cap(s), Refills(s) 0, Pharmacy: [facility] gabapentin (gabapentin 100 mg Cap) 100 mg = 1 cap(s), Oral, Daily, X 7 day(s), # 7 cap(s), Refills(s) 0, Pharmacy: [facility]/pharmacy #[id number] magnesium oxide (magnesium oxide 400 mg Tab) 400 mg = 1 tab(s), Oral, Daily, X 7 day(s), # 7 tab(s), Refills(s) 0, Pharmacy: [facility] magnesium oxide (magnesium oxide 400 mg Tab) 400 mg = 1 tab(s), Oral, Daily, X 7 day(s), # 7 tab(s), Refills(s) 0, Pharmacy: [facility]/pharmacy #[id number] Home Meds Display metformin (metformin 500 mg ER Tab) 250 mg, Oral, BID, Refills(s) 0 PATIENT EDUCATION INFORMATION: Instructions: Paresthesia, Lbha-ht-Gppm; Restless Legs Syndrome Follow up: With: Address: [facility] [address] [place] [address] Business (1) Within 1 to 2 days Comments: neurologist you may also follow up with him With: Address: When: [address] [address] Business (1) Within 1 to 2 days Comments: Return to ED if symptoms worsen DIAGNOSIS: 1:Restless leg syndrome Normal [facility] ED Note-Nursingon 09-14-2018 ED Note-Nursing Pt up to RR, gait steady. Normal [facility] ED Note-Nursing Aware of need for urine specimen, denies urge at present, states will notify when able to produce sample, will monitor. Normal [facility] ED Note-Physicianon 09-15-19 ED Note-Physician Basic Information [...] day(s), # 7 cap(s), Refills(s) 0, Pharmacy: [facility]/pharmacy #6177 magnesium oxide, 400 mg = 1 tab(s), Oral, Daily, X 7 day(s), # 7 tab(s), Refills(s) 0, Pharmacy: [facility]/pharmacy #6177 Sodium Chloride 0.9% intravenous solution 1,000 [...] Sayda Kelley Within 1 to [address] [address]- Business (1) Additional Instructions: neurologist you may also follow up with him Charles Nicole Within 1 to 2 days [address] [place] [address]- Business (1) Additional Instructions: Return to ED if symptoms worsen Patient Education Paresthesia, Ddkw-tj-Pmng Restless Legs Syndrome Problem List/Past Medical History [...] Auto: 30.6 % (09/13/18 23:03:00 EDT) [place] Auto: 7.2 % (09/13/18 23:03:00 EDT) Eos Auto: 2.2 % (09/13/18 23:03:00 EDT) Basophil Auto: 0.6 % (09/13/18 23:03:00 EDT) Neutro Absolute: 5.9 E9/L (09/13/18 23:03:00 EDT) Lymph Absolute: 3 E9/L (09/13/18 23:03:00 EDT) [place] Absolute: 0.7 E9/L (09/13/18 23:03:00 EDT) Eos [...] Results No qualifying data available. Normal [facility] Comment on above: Result Comment: Elec tronically [...] Document Reviewed: 01/29/2012 ExitCare? Patient Information ?2015 [employer]. This information is not intended to replace [...] ? Drawing. ? Crawling. ? Worming. ? Corbett. ? Tingling. ? Pins and needles. ? [...] Document Reviewed: 08/06/2011 ExitCare? Patient Information ?2015 [employer]. This information is not intended to replace advice given to you by your health care provider. Make sure you discuss any questions you have with your health care provider. Normal [facility] ED Patient Summaryon 019 ED Patient Summary [address] [address] Patient Discharge Instructions Person Information Name: ARIADNA HALEY Age: 37 Years Arrival Date: 09/13/2018 10:16 PM Discharge Diagnosis: 1:Restless leg syndrome Primary Care Physician: Charles Nicole DO Provider Information Primary Provider: Génesis Lozoya DO [facility] Clinical Programmer:None The exam and treatment you received in the Emergency Department were for an urgent problem and are not intended as complete care. It is important that you follow up with a doctor, nurse practitioner, or physician?s assistant guest services manager for ongoing care. If your symptoms [...] When: Sayda Kelley [facility], [address] [place] [address] [place] (1) Within 1 to 2 days Comments: neurologist you may also follow up with him With: Address: When: Charles Nicole [address] [place] [address] [place] (1) Within 1 to 2 days Comments: Return to ED if symptoms worsen In the event that this physician does not participate in your insurance network, please consult with your insurance company to find a nearby participating provider. Patient Education Materials: Paresthesia, Pcic-ik-Vcty; Restless Legs Syndrome A MESSAGE TO ALL PATIENTS REGARDING OPIOIDS PRESCRIPTION OPIOIDS: WHAT YOU NEED TO KNOW Prescription opioids can be used to help relieve ewgkztcx-mn-eoahvc pain and are often prescribed following a [...] with addiction, tell your health child care worker and ask for guidance or call [facility] National Helpline at 7-266-583-OSOC. z Source: [place] Department of Health and Human Services/Center for Disease Control & Prevention [facility] Medications Given: Medication Dose Route Sodium Chloride 0.9% intravenous solution 1000.00 mL Initial Volume 1000.00 mL/hr IV Piggyback Left Mid Forearm Medication Information: New Medications [id number], [address] [place], [place] [id number], [phone] gabapentin (gabapentin 100 mg Cap) 1 Capsules By Mouth every day for 7 Days. Refills: 0. magnesium oxide (magnesium oxide 400 mg Tab) 1 Tabs By Mouth every day for 7 Days. Refills: 0. [facility], [address] [place], [place] [id number], [phone] gabapentin (gabapentin 100 mg Cap) 1 Capsules [...] for choosing [facility] Patient Education Materials: Paresthesia Paresthesia is a [...] Document Reviewed: 01/29/2012 ExitCare? Patient Information ?2015 [employer]. This information is not intended to replace [...] ? Drawing. ? Crawling. ? Worming. ? Corbett. ? Tingling. ? Pins and needles. ? [...] Document Reviewed: 08/06/2011 ExitCare? Patient Information ?2015 [employer]. This information is not intended to replace advice given to you by your health care provider. Make sure you discuss any questions you have with your health care provider. TERA Dorantes NICOLE B , have received the following patient education materials/instruction s and have verbalized understanding: Patient Education Materials: Paresthesia, Lufe-ys-Dxje; Restless Legs Syndrome Follow-up Instructions: With: Address: When: Sayda Rubin, [address] [place] [address] Business (1) Within 1 to 2 days Comments: neurologist you may also follow up with him With: Address: When: [address] [place] [address] Business (1) Within 1 to 2 days Comments: Return to ED if symptoms worsen Prescriptions: [gabapentin (gabapentin 100 mg Cap)] [gabapentin (gabapentin 100 mg Cap)] [magnesium oxide (magnesium oxide 400 mg Tab)] [magnesium oxide (magnesium oxide 400 mg Tab)] Patient Signature Clinician/Nurse Signature Date 09/14/18 00:21:38 Normal [facility] Hep Func Panelon 09-14-2018 Bilirubin.direct [Mass/Vol] UTC Abnormal 0.1-0.9 [facility] Comment on above: Result Comment: Resu lt verified by Discern Rule. Performed result UTC (Unable to Calculate) was sent as an Alpha code due the inability to calculate a valid numeric value. Performed By: #### 1 6930841, 3142993, 9131635, 1949665, 36491574, 5953862, 6549247, 7878548, 2020913, 88188039, 1439319 #### [facility] [place] [address] Albumin [Mass/Vol] 1.1 g/dL Normal 1.1-2.2 [facility] Comment on above: Performed By: #### 1 3446724, 1621014, 6120833, 5668734, 05596982, 9809160, 1651938, 0491230, 8833086, 88021500, 1515826 #### [facility] [address] [place] [address] Albumin [Mass/Vol] 4.1 g/dL Normal 3.3-5.0 [facility] Comment on above: Performed By: #### 1 1371826, 3981484, 2629177, 9192120, 59554140, 3351657, 7903394, 1021552, 4151523, 70879021, 9511479 #### [facility] [address] [place] [address] ALP [Catalytic activity/Vol] 69 Int._Unit/L Normal 21-98 [facility] Comment on above: Performed By: #### 1 6171224, 5838439, 8996291, 6655978, 72069301, 8674036, 3037520, 7103678, 5021099, 69714045, 8251546 #### [facility] [address] [place], [place] [address] ALT No additional P-5'-P [Catalytic activity/Vol] 27 Int._Unit/L Normal 6-46 [facility] Comment on above: Performed By: #### 1 3845687, 0913167, 3146584, 1555833, 63766769, 0233089, 9659531, 7302078, 3536020, 13323614, 8962755 #### [facility] [address] [place], [place] [address] AST [Catalytic activity/Vol] 16 Int._Unit/L Normal 5-43 [facility] Comment on above: Performed By: #### 1 0361553, 8741520, 6191024, 9159716, 63408232, 4346982, 7594223, 8315825, 6006159, 35953759, 2666034 #### [facility] [address] [place] [address] Bilirubin [Mass/Vol] 0.5 mg/dL Normal 0.0-1.1 [facility] Comment on above: Performed By: #### 1 2639083, 7207944, 3915375, 8478458, 20064333, 0652411, 6654265, 2076958, 0230878, 06404353, 9062900 #### [facility] [address] [place] [address] Bilirubin.direct [Mass/Vol] mg/dL Normal 0.1-0.4 [facility] Comment on above: Performed By: #### 1 9565790, 7141873, 9956794, 9572471, 62025190, 8874901, 9895700, 9190114, 1361202, 82701911, 6773466 #### [facility] [address] [place] [address] Globulin (S) [Mass/Vol] 3.7 g/dL Normal 1.4-4.0 [facility] Comment on above: Performed By: #### 1 9566088, 0305948, 9550866, 0694945, 07518210, 2253360, 5948458, 9002116, 6802424, 39984172, 9050593 #### [facility] [address] [place] [address] Protein [Mass/Vol] 7.8 g/dL Normal 6.0-7.8 [facility] Comment on above: Performed By: #### 1 6882295, 6732423, 8126286, 6697352, 18838476, 6525990, 0176717, 5726620, 5673903, 86947370, 1432024 #### [facility] [address] [place] [address] Magnesiumon 09-14-2018 Magnesium [Mass/Vol] 1.9 mg/dL Normal 1.3-2.4 [facility] Comment on above: Performed By: #### 1 4677175, 6200866, 0773137, 2706907, 50730514, 2065550, 0545952, 9205811, 0201543, 08444622, 2523746 #### [facility] [address] [place] [address] Myoglobinon 09-14-2018 Myoglobin [Mass/Vol] 9 ng/mL Normal <=69 [facility] Comment on above: Performed By: #### 1 9429435, 9732183, 3520965, 4458548, 74969034, 3854701, 0379602, 9929243, 8112156, 40380780, 5374816 #### [facility] [address] [place] [address] PT & PTTon 09-14-2018 aPTT Coag (PPP) [Time] 34.5 second(s) Normal 25.1-36.5 [facility] Comment on above: Result Comment: Hepa rin therapeutic range (represented by Anti-Factor Xa activity of 0.2 - 0.4 U/mL) corresponds to PTT of 56.6 - 109.0 sec. Performed By: #### 1 3778438, 0799476, 5853933, 5349916, 77131908, 0539608, 3976522, 5611150, 2746785, 20125706, 3346156 #### [facility] [address] [place] [address] INR Coag (PPP) [Relative time] 1.0 {INR} [facility] Comment on above: Result Comment: INR results are specifically intended to assess patients stabilized on long-term Anticoagulation therapy suggested INR?s ?Less Intensive Anticoagulation? 2.0 ? 3.0 Conventional Range 3.0 ? 4.5 Performed By: #### 1 [id number], 0499554, 0850652, 3426303, 43380705, 4169995, 4896540, 9797702, 4857991, 22785202, 5729426 #### [facility] [address] [place] [address] PT Coag (PPP) [Time] 11.2 second(s) Normal 10.2-12.9 [facility] Comment on above: Performed By: #### 1 [id number], 2182963, 8686109, 0649408, 56932203, 2348589, 3482107, 8668137, 6393190, 08853058, 7710188 #### [facility] [address] [place] [address] Phosphoruson 09-14-2018 Phosphate [Mass/Vol] 3.8 mg/dL Normal 1.9-4.[address] [facility] Comment on above: Performed By: #### 1 [id number], 9737291, 3470524, 3656383, 77983431, 9471671, 0093533, 2818912, 7836738, 29841798, 2639015 #### [facility] [address] [place] [address] Troponin 0 Hr.on 09-14-2018 Troponin I.cardiac [Mass/Vol] ng/mL Normal <=0.03 [facility] Comment on above: Result Comment: New Troponin Assay 10/05/13 [place] Cutoff value > or = 0.03 ng/mL in conjunction with clinical conditions of myocardial infarction. ([email or web address]) Performed By: #### 1 [id number], 7677059, 6867559, 6958129, 31589826, 8773941, 9771736, 4070424, 4774125, 30451705, 8828356 #### [facility] [address] [place] [address] UA With Cult Reflexon 2018 Bacteria LM Ql (Urine sed) TRACE Normal Trace [facility] Comment on above: Performed By: #### 1 4554613, 3213845, 2989349, 6313024, 36154269, 7101083, 0515627, 7087720, 2510922, 98187808, 0501262 #### [facility] [address] [place] [address] Bilirubin Ql (U) Negative Normal Negative [facility] Comment on above: Performed By: #### 1 7922349, 1178742, 5282088, 3217449, 05506751, 7691232, 9848114, 5607123, 4810795, 60264360, 7120456 #### [facility] [address] [place] [address] Clarity (U) CLEAR Normal Clear [facility] Comment on above: Performed By: #### 1 2743307, 5523720, 5037603, 2866935, 96412939, 2985457, 5513055, 0045688, 9363588, 60441906, 9126884 #### [facility] [address] [place] [address] Color (U) YELLOW Normal Yellow [facility] Comment on above: Performed By: #### 1 4733669, 7934317, 5441050, 5796550, 88942011, 9524343, 6750164, 4052107, 1389914, 94514939, 4289318 #### [facility] [address] [place] [address] Epithelial cells.squamous LM.HPF (Urine sed) [#/Area] 0-2 Normal 0-2 [facility] Comment on above: Performed By: #### 1 6452048, 3871474, 6799702, 9638343, 23035835, 2849411, 1792881, 8289664, 7820322, 07699040, 5607385 #### [facility] [address] [place] [address] Glucose Test strip (U) [Mass/Vol] Negative Normal Negative [facility] Comment on above: Performed By: #### 1 5840171, 9274065, 1848025, 0079115, 16833145, 5438995, 2064795, 3208512, 4034136, 93448130, 5765275 #### [facility] [address] [place] [address] Hemoglobin Ql (U) Negative Normal Negative [facility] Comment on above: Performed By: #### 1 8460642, 2936320, 2953025, 5047685, 96060384, 8143360, 6344065, 9812269, 2343030, 45600744, 2610909 #### [facility] [address] [place] [address] Ketones (U) [Mass/Vol] Negative Normal Negative [facility] Comment on above: Performed By: #### 1 0586852, 4282133, 6800466, 8752513, 81273723, 7047739, 9342037, 1282019, 1690990, 18322686, 0231929 #### [facility] [address] [place] [address] [place].plasma/[place] .RBC (Bld) [Mass ratio] 0-3 Normal 0-3 [facility] Comment on above: Performed By: #### 1 8379613, 9439225, 5339696, 4430800, 42079672, 9129941, 4168228, 1943580, 7926520, 60827189, 9861812 #### [facility] [address] [place] [address] Mucus Ql (Urine sed) TRACE Normal Fish [facility] Comment on above: Performed By: #### 1 6160691, 3521823, 4212086, 6673907, 47453759, 1112183, 7201912, 7804046, 3185805, 78360532, 0059603 #### [facility] [address] [place] [address] Nitrite Ql (U) Negative Normal Negative [facility] Comment on above: Performed By: #### 1 9688156, 0899009, 4431879, 5247676, 50071528, 6536309, 5295512, 0258292, 6628132, 04633816, 2334346 #### [facility] [address] [place] [address] pH (U) 6.0 [pH] 5.0-9.0 [facility] Comment on above: Performed By: #### 1 8167418, 0878028, 2450249, 4888814, 60412601, 9415024, 1252744, 9568396, 3010432, 97774434, 9470025 #### [facility] [address] [place] [address] Protein (U) [Mass/Vol] Negative Normal Negative [facility] Comment on above: Performed By: #### 1 8977967, 2571590, 5772179, 0054372, 80437018, 5795599, 2420591, 6803217, 5385873, 43852407, 4392727 #### [facility] [address] [place] [address] Specific gravity (U) [Rel density] 1.010 1.005-1.030 [facility] Comment on above: Performed By: #### 1 3146242, 0942458, 0185612, 6649071, 15082367, 8827067, 0345672, 8021257, 9212366, 79549045, 1964015 #### [facility] [address] [place] [address] UA Spec Desc Clean Catch Normal [facility] Comment on above: Performed By: #### 1 9190314, 9629356, 5133883, 9377599, 95054690, 8238657, 7862792, 5821999, 5074291, 24233202, 1264098 #### [facility] [address] [place] [address] Urobilinogen Qn (U) 0.2 {Carmella'U}/dL Normal 0.0-1.0 [facility] Comment on above: Performed By: #### 1 4016464, 7976524, 8972343, 2131059, 48486417, 0453210, 7861538, 4975814, 5347719, 96426172, 2148943 #### [facility] [address] [place] [address] WBC Auto Ql (U) Negative Normal Negative [facility] Comment on above: Performed By: #### 1 2006911, 5999740, 3941309, 6376176, 02188653, 5003669, 8381794, 1895891, 2285935, 78775039, 7115017 #### [facility] [address] [place] [address] WBC LM.HPF (Urine sed) [#/Area] 0-5 Normal 0-5 [facility] Comment on above: Performed By: #### 1 4838742, 8464789, 2760754, 5394706, 44796697, 6187984, 1956376, 3559224, 2680660, 25315595, 5358341 #### [facility] [address] [place] [address] XR Chest Single Viewon 09-14 XR Chest [...] M.D. Transcribed by: minoo Technologist: AP Normal [facility] XR FOOT LEFT (MIN 3 VIEWS)on 09-14-2018 XR FOOT LEFT (MIN 3 VIEWS) Radiology exam is complete. No Radiologist dictation. Please follow up with ordering provider. Final result Normal [facility] XR FOOT RIGHT (MIN 3 VIEWS)o n 09-14-2018 XR FOOT RIGHT (MIN 3 VIEWS) Radiology exam is complete. No Radiologist dictation. Please follow up with ordering provider. Final result Normal [facility] eGFRon 09-14-2018 GFR/1.73 sq M predicted among blacks MDRD (S/P/Bld) [Vol rate/Area] mL/min/{1.73_m2} Normal >=59 [facility] Comment on above: Order Comment: Order added by Discern Expert. Result Comment: eGFR is race adjusted. AA=. Performed By: #### 1 6790246, 7767333, 9841359, 4558442, 12208571, 4756211, 7459120, 1920235, 4411301, 10370361, 9894876 #### [facility] [address] [place] [address] GFR/1.73 sq M predicted among non-blacks MDRD (S/P/Bld) [Vol rate/Area] mL/min/{1.73_m2} Normal >=59 [facility] Comment on above: Order Comment: Order added by Discern Expert. Result Comment: [employer] Maker anthony kidney disease could be indicated at eGFR's of less than 60 mL/min/1.73m2. Kidney failure is indicated at less than 15 mL/min/1.73m2. Performed By: #### 1 5753243, 8864583, 5304015, 1213178, 57393854, 4905241, 9243247, 7785576, 8118740, 34049029, 4448356 #### [facility] [address] [place] [address] Vital Signs Date Time Vital Sign Value Performing Clinician Facility 02-14-2025 09:42-0400 Body height 170.18 cm Gay Johnmer VETERANS' COUNSELOR-C Work Phone: [facility] 02-14-2025 09:42-0400 Diastolic blood pressure 76 mm[Hg] Gay Britt VETERANS' COUNSELOR-C Work Phone: [facility] 02-14-2025 09:42-0400 Heart rate 65 /min Gay Britt VETERANS' COUNSELOR-C Work Phone: [facility] 02-14-2025 09:42-0400 SaO2% (BldA) [Mass fraction] 97 % Gay Britt VETERANS' COUNSELOR-C Work Phone: [facility] 02-14-2025 09:42-0400 Systolic blood pressure 118 mm[Hg] Gay Britt VETERANS' COUNSELOR-C Work Phone: [facility] 01-31-2025 11:40-0400 Diastolic blood pressure 80 mm[Hg] Gay Britt VETERANS' COUNSELOR-C Work Phone: [facility] 01-31-2025 11:40-0400 Heart rate 86 /min Gay Britt VETERANS' COUNSELOR-C Work Phone: [facility] 01-31-2025 11:40-0400 Respiratory rate 18 /min Gayomer Johnmer VETERANS' COUNSELOR-C Work Phone: [facility] 01-31-2025 11:40-0400 SaO2% (BldA) [Mass fraction] 94 % Gayomer Johnmer VETERANS' COUNSELOR-C Work Phone: [facility] 01-31-2025 11:40-0400 Systolic blood pressure 116 mm[Hg] Gay Enciso VETERANS' COUNSELOR-C Work Phone: [facility] 01-31-2025 10:11-0400 Body height 170.18 cm Gay Johnmer VETERANS' COUNSELOR-C Work Phone: [facility] 01-31-2025 10:11-0400 Body weight 127 kg Gayomer Johnmer VETERANS' COUNSELOR-C Work Phone: [facility] 01-24-2025 14:20-0400 Diastolic blood pressure 68 mm[Hg] Chair Stanton Work Phone: [facility] 01-24-2025 14:20-0400 Heart rate 82 /min Chair Gabbi Work Phone: [facility] 01-24-2025 14:20-0400 Respiratory rate 18 /min Chair Gabbi Work Phone: [facility] 01-24-2025 14:20-0400 SaO2% (BldA) [Mass fraction] 98 % Chair Gabbi Work Phone: [facility] 01-24-2025 14:20-0400 Systolic blood pressure 111 mm[Hg] Chair Stanton Work Phone: [facility] 01-24-2025 10:42-0400 Body temperature 97.81 [degF] Chair Stanton Work Phone: [facility] 01-17-2025 10:38-0400 Body height 170.18 cm Gay Enciso VETERANS' COUNSELOR-C Work Phone: [facility] 01-17-2025 10:38-0400 Diastolic blood pressure 62 mm[Hg] Gay Johnmer VETERANS' COUNSELOR-C Work Phone: [facility] 01-17-2025 10:38-0400 Heart rate 92 /min Gay Enciso VETERANS' COUNSELOR-C Work Phone: [facility] 01-17-2025 10:38-0400 SaO2% (BldA) [Mass fraction] 96 % Gay Enciso VETERANS' COUNSELOR-C Work Phone: [facility] 01-17-2025 10:38-0400 Systolic blood pressure 108 mm[Hg] Gay Enciso VETERANS' COUNSELOR-C Work Phone: [facility] 01-11-2025 13:51-0400 Body temperature 98.29 [degF] Chair Stanton Work Phone: [facility] 01-11-2025 13:51-0400 Diastolic blood pressure 91 mm[Hg] Chair Stanton Work Phone: [facility] 01-11-2025 13:51-0400 Heart rate 76 /min Chair Stanton Work Phone: [facility] 01-11-2025 13:51-0400 Respiratory rate 20 /min Chair Gabbi Work Phone: [facility] 01-11-2025 13:51-0400 SaO2% (BldA) [Mass fraction] 98 % Chair Gabbi Work Phone: [facility] 01-11-2025 13:51-0400 Systolic blood pressure 146 mm[Hg] Chair Stanton Work Phone: [facility] 12-14-2024 14:10-0400 Diastolic blood pressure 71 mm[Hg] Chair Stanton Work Phone: [facility] 12-14-2024 14:10-0400 Heart rate 83 /min Chair Stanton Work Phone: [facility] 12-14-2024 14:10-0400 Respiratory rate 18 /min Chair Stanton Work Phone: [facility] 12-14-2024 14:10-0400 SaO2% (BldA) [Mass fraction] 96 % Chair Gabbi Work Phone: [facility] 12-14-2024 14:10-0400 Systolic blood pressure 128 mm[Hg] Chair Gabbi Work Phone: [facility] 12-12-2024 10:45-0400 Body height 170.18 cm Gay Britt VETERANS' COUNSELOR-C Work Phone: [facility] 12-12-2024 10:45-0400 Body mass index (BMI) [Ratio] 44.8 kg/m2 Gay Britt VETERANS' COUNSELOR-C Work Phone: [facility] 12-12-2024 10:45-0400 Body weight 129.72 kg Gay Britt VETERANS' COUNSELOR-C Work Phone: [facility] 12-12-2024 10:45-0400 Diastolic blood pressure 71 mm[Hg] Gay Britt VETERANS' COUNSELOR-C Work Phone: [facility] 12-12-2024 10:45-0400 Heart rate 63 /min Gay Britt VETERANS' COUNSELOR-C Work Phone: [facility] 12-12-2024 10:45-0400 Systolic blood pressure 109 mm[Hg] Gay Britt VETERANS' COUNSELOR-C Work Phone: [facility] 11-30-2024 09:08-0400 Diastolic blood pressure 84 mm[Hg] Gay Britt VETERANS' COUNSELOR-C Work Phone: [facility] 11-30-2024 09:08-0400 Heart rate 64 /min Gay Britt VETERANS' COUNSELOR-C Work Phone: [facility] 11-30-2024 09:08-0400 SaO2% (BldA) [Mass fraction] 98 % Gay Britt VETERANS' COUNSELOR-C Work Phone: [facility] 11-30-2024 09:08-0400 Systolic blood pressure 120 mm[Hg] Gay Britt VETERANS' COUNSELOR-C Work Phone: [facility] 11-29-2024 14:46-0400 Body temperature 97.81 [degF] Chair Reese Work Phone: [facility] 11-29-2024 14:46-0400 Diastolic blood pressure 73 mm[Hg] Chair Stanton Work Phone: [facility] 11-29-2024 14:46-0400 Heart rate 77 /min Chair Stanton Work Phone: [facility] 11-29-2024 14:46-0400 Respiratory rate 18 /min Chair Stanton Work Phone: [facility] 11-29-2024 14:46-0400 SaO2% (BldA) [Mass fraction] 98 % Chair Stanton Work Phone: [facility] Comment on above: RA 11-29-2024 14:46-0400 Systolic blood pressure 122 mm[Hg] Chair Stanton Work Phone: [facility] 11-29-2024 09:13-0400 Body height 170.2 cm Vaibhav Deven GEAR GENERATOR SET UP OPERATOR.MANAGER EXPORT Work Phone: [facility] 11-29-2024 09:13-0400 Body mass index (BMI) [Ratio] 45.12 kg/m2 Vaibhav Deven GEAR GENERATOR SET UP OPERATOR.MANAGER EXPORT Work Phone: [facility] 11-29-2024 09:13-0400 Body temperature 97.5 [degF] Vaibhav Deven GEAR GENERATOR SET UP OPERATOR.MANAGER EXPORT Work Phone: [facility] 11-29-2024 09:13-0400 Body weight 130.7 kg Vaibhav Deven GEAR GENERATOR SET UP OPERATOR.MANAGER EXPORT Work Phone: [facility] 11-29-2024 09:13-0400 Diastolic blood pressure 57 mm[Hg] Vaibhav Deven GEAR GENERATOR SET UP OPERATOR.MANAGER EXPORT Work Phone: [facility] 11-29-2024 09:13-0400 Heart rate 88 /min Vaibhav Deven GEAR GENERATOR SET UP OPERATOR.MANAGER EXPORT Work Phone: [facility] 11-29-2024 09:13-0400 Respiratory rate 18 /min Vaibhav Deven GEAR GENERATOR SET UP OPERATOR.MANAGER EXPORT Work Phone: [facility] 11-29-2024 09:13-0400 SaO2% (BldA) [Mass fraction] 98 % Vaibhavanil Carvalho GEAR GENERATOR SET UP OPERATOR.MANAGER EXPORT Work Phone: [facility] 11-29-2024 09:13-0400 Systolic blood pressure 113 mm[Hg] Vaibhav Carvalho GEAR GENERATOR SET UP OPERATOR.MANAGER EXPORT Work Phone: [facility] 11-16-2024 13:47-0400 Body temperature 98.01 [degF] Chair Stanton Work Phone: [facility] 11-16-2024 13:47-0400 Diastolic blood pressure 70 mm[Hg] Chair Stanton Work Phone: [facility] 11-16-2024 13:47-0400 Heart rate 89 /min Chair Gabbi Work Phone: [facility] 11-16-2024 13:47-0400 Respiratory rate 20 /min Chair Gabbi Work Phone: [facility] 11-16-2024 13:47-0400 SaO2% (BldA) [Mass fraction] 97 % Chair Stanton Work Phone: [facility] 11-16-2024 13:47-0400 Systolic blood pressure 101 mm[Hg] Chair Stanton Work Phone: [facility] 11-13-2024 11:17-0400 Body height 170.18 cm Gay Enciso VETERANS' COUNSELOR-C Work Phone: [facility] 11-13-2024 11:17-0400 Body mass index (BMI) [Ratio] 44.1 kg/m2 Gay Enciso VETERANS' COUNSELOR-C Work Phone: [facility] 11-13-2024 11:17-0400 Body weight 127.91 kg Gay Enciso VETERANS' COUNSELOR-C Work Phone: [facility] 11-13-2024 11:17-0400 Diastolic blood pressure 78 mm[Hg] Gay Enciso VETERANS' COUNSELOR-C Work Phone: [facility] 11-13-2024 11:17-0400 Heart rate 96 /min Gay Johnmer VETERANS' COUNSELOR-C Work Phone: [facility] 11-13-2024 11:17-0400 Systolic blood pressure 104 mm[Hg] Gay Encsio VETERANS' COUNSELOR-C Work Phone: [facility] 10-31-2024 14:46-0400 Diastolic blood pressure 76 mm[Hg] Chair Stanton Work Phone: [facility] 10-31-2024 14:46-0400 Heart rate 68 /min Chair Stanton Work Phone: [facility] 10-31-2024 14:46-0400 Respiratory rate 20 /min Chair Stanton Work Phone: [facility] 10-31-2024 14:46-0400 SaO2% (BldA) [Mass fraction] 94 % Chair Stanton Work Phone: [facility] Comment on above: RA 10-31-2024 14:46-0400 Systolic blood pressure 133 mm[Hg] Chair Gabbi Work Phone: [facility] 10-31-2024 09:19-0400 Body temperature 97.81 [degF] Chair Stanton Work Phone: [facility] 2024 14:16-0400 Body mass index (BMI) [Ratio] 44.01 kg/m2 Chair Stanton Work Phone: [facility] 2024 14:16-0400 Body temperature 97.59 [degF] Chair Stanton Work Phone: [facility] 2024 14:16-0400 Body weight 127.5 kg Chair Stanton Work Phone: [facility] 2024 14:16-0400 Diastolic blood pressure 78 mm[Hg] Chair Stanton Work Phone: [facility] 2024 14:16-0400 Heart rate 85 /min Chair Gabbi Work Phone: [facility] 2024 14:16-0400 Respiratory rate 16 /min Chair Stanton Work Phone: [facility] 2024 14:16-0400 SaO2% (BldA) [Mass fraction] 96 % Chair Stanton Work Phone: [facility] 2024 14:16-0400 Systolic blood pressure 113 mm[Hg] Chair Stanton Work Phone: [facility] 10-02-2024 14:15-0400 Body temperature 98.29 [degF] Chair Stanton Work Phone: [facility] 10-02-2024 14:15-0400 Diastolic blood pressure 80 mm[Hg] Chair Gabbi Work Phone: [facility] 10-02-2024 14:15-0400 Heart rate 76 /min Chair Stanton Work Phone: [facility] 10-02-2024 14:15-0400 Respiratory rate 16 /min Chair Stanton Work Phone: [facility] 10-02-2024 14:15-0400 SaO2% (BldA) [Mass fraction] 97 % Chair Gabbi Work Phone: [facility] 10-02-2024 14:15-0400 Systolic blood pressure 129 mm[Hg] Chair Stanton Work Phone: [facility] 09-18-2024 13:20-0400 Body temperature 97.59 [degF] Chair Stanton Work Phone: [facility] 09-18-2024 13:20-0400 Diastolic blood pressure 84 mm[Hg] Chair Stanton Work Phone: [facility] 09-18-2024 13:20-0400 Heart rate 107 /min Chair Stanton Work Phone: [facility] 09-18-2024 13:20-0400 Respiratory rate 18 /min Chair Gabbi Work Phone: [facility] 09-18-2024 13:20-0400 SaO2% (BldA) [Mass fraction] 97 % Chair Gabbi Work Phone: [facility] 09-18-2024 13:20-0400 Systolic blood pressure 115 mm[Hg] Chair Stanton Work Phone: [facility] 09-06-2024 16:17-0400 Heart rate 90 /min Gay Enciso VETERANS' COUNSELOR-C Work Phone: [facility] 09-06-2024 16:17-0400 SaO2% (BldA) [Mass fraction] 97 % Gay Britt VETERANS' COUNSELOR-C Work Phone: [facility] 09-06-2024 13:54-0400 Diastolic blood pressure 69 mm[Hg] Chair Stanton Work Phone: [facility] 09-06-2024 13:54-0400 Heart rate 90 /min Chair Stanton Work Phone: [facility] 09-06-2024 13:54-0400 Respiratory rate 18 /min Chair Gabbi Work Phone: [facility] 09-06-2024 13:54-0400 SaO2% (BldA) [Mass fraction] 97 % Chair Stanton Work Phone: [facility] 09-06-2024 13:54-0400 Systolic blood pressure 110 mm[Hg] Chair Stanton Work Phone: [facility] 09-06-2024 08:43-0400 Body height 170.2 cm Vaibhav Carvalho APRN.MANAGER EXPORT Work Phone: [facility] 09-06-2024 08:43-0400 Body mass index (BMI) [Ratio] 45.5 kg/m2 Vaibhav Carvalho GEAR GENERATOR SET UP OPERATOR.MANAGER EXPORT Work Phone: [facility] 09-06-2024 08:43-0400 Body temperature 97.5 [degF] Vaibhav Deven GEAR GENERATOR SET UP OPERATOR.MANAGER EXPORT Work Phone: [facility] 09-06-2024 08:43-0400 Body weight 131.8 kg Vaibhav Deven GEAR GENERATOR SET UP OPERATOR.MANAGER EXPORT Work Phone: [facility] 09-06-2024 08:43-0400 Diastolic blood pressure 64 mm[Hg] Vaibhav Deven GEAR GENERATOR SET UP OPERATOR.MANAGER EXPORT Work Phone: [facility] 09-06-2024 08:43-0400 Heart rate 77 /min Vaibhav Deven GEAR GENERATOR SET UP OPERATOR.MANAGER EXPORT Work Phone: [facility] 09-06-2024 08:43-0400 Respiratory rate 18 /min Vaibhav Deven GEAR GENERATOR SET UP OPERATOR.MANAGER EXPORT Work Phone: [facility] 09-06-2024 08:43-0400 SaO2% (BldA) [Mass fraction] 97 % Vaibhav Deven GEAR GENERATOR SET UP OPERATOR.MANAGER EXPORT Work Phone: [facility] 09-06-2024 08:43-0400 Systolic blood pressure 116 mm[Hg] Vaibhav Deven GEAR GENERATOR SET UP OPERATOR.MANAGER EXPORT Work Phone: [facility] 09-04-2024 15:04-0400 Body height 170.2 cm Gordo Barfield MD Work Phone: [facility] 09-04-2024 15:04-0400 Body mass index (BMI) [Ratio] 44.32 kg/m2 Gordo Barfield MD Work Phone: [facility] 09-04-2024 15:04-0400 Body weight 128.37 kg Gordo Barfield MD Work Phone: [facility] 09-04-2024 15:04-0400 Diastolic blood pressure 73 mm[Hg] Gordo Barfield MD Work Phone: [facility] 09-04-2024 15:04-0400 Heart rate 101 /min Gordo Barfield MD Work Phone: [facility] 09-04-2024 15:04-0400 Systolic blood pressure 112 mm[Hg] Gordo Barfield MD Work Phone: [facility] 08-08-2024 14:36-0400 Diastolic blood pressure 87 mm[Hg] Chair Gabbi Work Phone: [facility] 08-08-2024 14:36-0400 Heart rate 83 /min Chair Gabbi Work Phone: [facility] 08-08-2024 14:36-0400 Respiratory rate 18 /min Chair Gabbi Work Phone: [facility] 08-08-2024 14:36-0400 SaO2% (BldA) [Mass fraction] 97 % Chair Stanton Work Phone: [facility] 08-08-2024 14:36-0400 Systolic blood pressure 129 mm[Hg] Chair Stanton Work Phone: [facility] 08-08-2024 10:54-0400 Body temperature 98.01 [degF] Chair Gabbi Work Phone: [facility] 07-31-2024 16:05-0400 Diastolic blood pressure 70 mm[Hg] Gayomer Enciso VETERANS' COUNSELOR-C Work Phone: [facility] 07-31-2024 16:05-0400 Heart rate 108 /min Gayomer Enciso VETERANS' COUNSELOR-C Work Phone: [facility] 07-31-2024 16:05-0400 SaO2% (BldA) [Mass fraction] 96 % Gayomer Enciso VETERANS' COUNSELOR-C Work Phone: [facility] 07-31-2024 16:05-0400 Systolic blood pressure 104 mm[Hg] Gay Enciso VETERANS' COUNSELOR-C Work Phone: [facility] 07-26-2024 15:06-0500 Body height 170.2 cm Lois Holm MD Work Phone: [facility] 07-26-2024 15:06-0500 Body mass index (BMI) [Ratio] 44.92 kg/m2 Lois Holm MD Work Phone: [facility] 07-26-2024 15:06-0500 Body weight 130.09 kg Lois Holm MD Work Phone: [facility] 07-26-2024 15:06-0500 Diastolic blood pressure 60 mm[Hg] Lois Holm MD Work Phone: [facility] 07-26-2024 15:06-0500 Heart rate 84 /min Lois Holm MD Work Phone: [facility] 07-26-2024 15:06-0500 Systolic blood pressure 100 mm[Hg] Lois Holm MD Work Phone: [facility] 07-19-2024 11:27-0500 Diastolic blood pressure 90 mm[Hg] Gay Enciso VETERANS' COUNSELOR-C Work Phone: [facility] 07-19-2024 11:27-0500 Heart rate 78 /min Gay Enciso VETERANS' COUNSELOR-C Work Phone: [facility] 07-19-2024 11:27-0500 Respiratory rate 16 /min Gay Enciso VETERANS' COUNSELOR-C Work Phone: [facility] 07-19-2024 11:27-0500 SaO2% (BldA) [Mass fraction] 96 % Gay Enciso VETERANS' COUNSELOR-C Work Phone: [facility] 07-19-2024 11:27-0500 Systolic blood pressure 126 mm[Hg] Gay Enciso VETERANS' COUNSELOR-C Work Phone: [facility] 07-19-2024 09:54-0500 Body height 170.18 cm Gay Enciso VETERANS' COUNSELOR-C Work Phone: [facility] 07-19-2024 09:54-0500 Body weight 127 kg Gay Enciso VETERANS' COUNSELOR-C Work Phone: [facility] 07-12-2024 14:16-0500 Body temperature 96.91 [degF] Marky Barnes PA-C Work Phone: [facility] 07-11-2024 14:30-0500 Body temperature 97.39 [degF] Chair Stanton Work Phone: [facility] 07-11-2024 14:30-0500 Diastolic blood pressure 80 mm[Hg] Chair Stanton Work Phone: [facility] 07-11-2024 14:30-0500 Heart rate 69 /min Chair Stanton Work Phone: [facility] 07-11-2024 14:30-0500 Respiratory rate 18 /min Chair Gabbi Work Phone: [facility] 07-11-2024 14:30-0500 SaO2% (BldA) [Mass fraction] 98 % Chair Stanton Work Phone: [facility] 07-11-2024 14:30-0500 Systolic blood pressure 119 mm[Hg] Chair Stanton Work Phone: [facility] 07-10-2024 15:25-0500 Diastolic blood pressure 70 mm[Hg] [facility] 07-10-2024 15:25-0500 Heart rate 106 /min [facility] 07-10-2024 15:25-0500 SaO2% (BldA) [Mass fraction] 97 % [facility] 07-10-2024 15:25-0500 Systolic blood pressure 102 mm[Hg] [facility] 06-13-2024 14:55-0500 Diastolic blood pressure 56 mm[Hg] Chair Stanton Work Phone: [facility] 06-13-2024 14:55-0500 Heart rate 70 /min Chair Gabbi Work Phone: [facility] 06-13-2024 14:55-0500 Respiratory rate 18 /min Chair Gabbi Work Phone: [facility] 06-13-2024 14:55-0500 SaO2% (BldA) [Mass fraction] 98 % Chair Stanton Work Phone: [facility] 06-13-2024 14:55-0500 Systolic blood pressure 93 mm[Hg] Chair Gabbi Work Phone: [facility] 06-13-2024 08:55-0500 Body mass index (BMI) [Ratio] 45.08 kg/m2 Vaibhav Deven GEAR GENERATOR SET UP OPERATOR.MANAGER EXPORT Work Phone: [facility] 06-13-2024 08:55-0500 Body temperature 97.59 [degF] Vaibhav Deven GEAR GENERATOR SET UP OPERATOR.MANAGER EXPORT Work Phone: [facility] 06-13-2024 08:55-0500 Body weight 130.6 kg Vaibhav Deven GEAR GENERATOR SET UP OPERATOR.MANAGER EXPORT Work Phone: [facility] 06-13-2024 08:55-0500 Diastolic blood pressure 71 mm[Hg] Vaibhav Deven GEAR GENERATOR SET UP OPERATOR.MANAGER EXPORT Work Phone: [facility] 06-13-2024 08:55-0500 Heart rate 79 /min Vaibhav Deven GEAR GENERATOR SET UP OPERATOR.MANAGER EXPORT Work Phone: [facility] 06-13-2024 08:55-0500 Respiratory rate 16 /min Vaibhav Deven GEAR GENERATOR SET UP OPERATOR.MANAGER EXPORT Work Phone: [facility] 06-13-2024 08:55-0500 SaO2% (BldA) [Mass fraction] 98 % Vaibhav Deven GEAR GENERATOR SET UP OPERATOR.MANAGER EXPORT Work Phone: [facility] 06-13-2024 08:55-0500 Systolic blood pressure 106 mm[Hg] Vaibhav Deven GEAR GENERATOR SET UP OPERATOR.MANAGER EXPORT Work Phone: [facility] 06-06-2024 11:37-0500 Body mass index (BMI) [Ratio] 45.08 kg/m2 Oly WARREN Work Phone: [facility] 06-06-2024 11:37-0500 Body weight 130.54 kg Oly WARREN Work Phone: [facility] 06-06-2024 11:37-0500 Diastolic blood pressure 70 mm[Hg] Oly WARREN Work Phone: [facility] 06-06-2024 11:37-0500 Systolic blood pressure 120 mm[Hg] Oly WARREN Work Phone: [facility] 05-19-2024 15:02-0500 Body temperature 97.3 [degF] Chair Stanton Work Phone: [facility] 05-19-2024 15:02-0500 Diastolic blood pressure 63 mm[Hg] Chair Stanton Work Phone: [facility] 05-19-2024 15:02-0500 Heart rate 73 /min Chair Stanton Work Phone: [facility] 05-19-2024 15:02-0500 Respiratory rate 20 /min Chair Gabbi Work Phone: [facility] 05-19-2024 15:02-0500 SaO2% (BldA) [Mass fraction] 98 % Chair Stanton Work Phone: [facility] Comment on above: 05-19-2024 15:02-0500 Systolic blood pressure 114 mm[Hg] Chair Gabbi Work Phone: [facility] 04-26-2024 09:31-0500 Body temperature 97.59 [degF] Ma Sand Work Phone: [facility] 04-26-2024 09:31-0500 Diastolic blood pressure 78 mm[Hg] Ma Sand Work Phone: [facility] Comment on above: Manual 04-26-2024 09:31-0500 Heart rate 66 /min Ma Sand Work Phone: [facility] 04-26-2024 09:31-0500 Respiratory rate 16 /min Ma Sand Work Phone: [facility] 04-26-2024 09:31-0500 SaO2% (BldA) [Mass fraction] 99 % Ma Sand Work Phone: [facility] 04-26-2024 09:31-0500 Systolic blood pressure 122 mm[Hg] Cele Marshall Work Phone: [facility] Comment on above: Manual 04-10-2024 10:12-0500 Body height 170.2 cm Gordo Barfield MD Work Phone: [facility] 04-10-2024 10:12-0500 Body mass index (BMI) [Ratio] 44.95 kg/m2 Gordo Barfield MD Work Phone: [facility] 04-10-2024 10:12-0500 Body weight 130.18 kg Gordo Barfield MD Work Phone: [facility] 04-10-2024 10:12-0500 Diastolic blood pressure 70 mm[Hg] Gordo Barfield MD Work Phone: [facility] 04-10-2024 10:12-0500 Systolic blood pressure 110 mm[Hg] Gordo Barfield MD Work Phone: [facility] 04-06-2024 10:00-0500 Body height 170.2 cm Hayden Arciniega MD Work Phone: [facility] 04-06-2024 10:00-0500 Body mass index (BMI) [Ratio] 43.07 kg/m2 Hayden Arciniega MD Work Phone: [facility] 04-06-2024 10:00-0500 Body temperature 97 [degF] Hayden Arciniega MD Work Phone: [facility] 04-06-2024 10:00-0500 Body weight 124.74 kg Hayden Arciniega MD Work Phone: [facility] 04-06-2024 10:00-0500 Diastolic blood pressure 80 mm[Hg] Hayden Arciniega MD Work Phone: [facility] 04-06-2024 10:00-0500 Heart rate 86 /min Hayden Arciniega MD Work Phone: [facility] 04-06-2024 10:00-0500 SaO2% (BldA) [Mass fraction] 97 % Hayden Arciniega MD Work Phone: [facility] 04-06-2024 10:00-0500 Systolic blood pressure 136 mm[Hg] Hayden Arciniega MD Work Phone: [facility] 04-02-2024 13:27-0500 Body mass index (BMI) [Ratio] 45.42 kg/m2 Marky Mike DO Work Phone: [facility] 04-02-2024 13:27-0500 Body temperature 98.71 [degF] Marky Mike DO Work Phone: [facility] 04-02-2024 13:27-0500 Body weight 131.54 kg Marky Mike DO Work Phone: [facility] 04-02-2024 13:27-0500 Diastolic blood pressure 90 mm[Hg] Marky Mike DO Work Phone: [facility] 04-02-2024 13:27-0500 Heart rate 78 /min Marky Mike DO Work Phone: [facility] 04-02-2024 13:27-0500 SaO2% (BldA) [Mass fraction] 99 % Marky Mike DO Work Phone: [facility] 04-02-2024 13:27-0500 Systolic blood pressure 132 mm[Hg] Marky Mike DO Work Phone: [facility] 03-23-2024 14:35-0400 Body mass index (BMI) [Ratio] 44.17 kg/m2 Oly WARREN Work Phone: [facility] 03-23-2024 14:35-0400 Body weight 127.91 kg Oly WARREN Work Phone: [facility] 03-23-2024 14:35-0400 Diastolic blood pressure 76 mm[Hg] Oly WARREN Work Phone: [facility] 03-23-2024 14:35-0400 Systolic blood pressure 122 mm[Hg] Oly WARREN Work Phone: [facility] 03-23-2024 10:11-0400 Body height 170.2 cm Ma Sand Work Phone: [facility] 03-23-2024 10:11-0400 Body mass index (BMI) [Ratio] 43.06 kg/m2 Ma Sand Work Phone: [facility] 03-23-2024 10:11-0400 Body temperature 97.59 [degF] Cele Sand Work Phone: [facility] 03-23-2024 10:11-0400 Body weight 124.74 kg Ma Sand Work Phone: [facility] 03-23-2024 10:11-0400 Diastolic blood pressure 85 mm[Hg] Ma Sand Work Phone: [facility] 03-23-2024 10:11-0400 Heart rate 71 /min Ma Sand Work Phone: [facility] 03-23-2024 10:11-0400 Respiratory rate 16 /min Cele Sand Work Phone: [facility] 03-23-2024 10:11-0400 SaO2% (BldA) [Mass fraction] 94 % Ma [employer] Work Phone: [facility] 03-23-2024 10:11-0400 Systolic blood pressure 135 mm[Hg] Ma [employer] Work Phone: [facility] 03-16-2024 11:24-0400 Body mass index (BMI) [Ratio] 43.67 kg/m2 Luan Skip DO Work Phone: [facility] [email or web address] 03-16-2024 11:24-0400 Body weight 126.46 kg Luan Skip DO Work Phone: [facility] [email or web address] 03-16-2024 11:24-0400 Diastolic blood pressure 70 mm[Hg] Luan Skip DO Work Phone: [facility] [email or web address] 03-16-2024 11:24-0400 Systolic blood pressure 120 mm[Hg] Luan Skip DO Work Phone: [facility] [email or web address] 03-16-2024 09:20-0400 Body height 170.18 cm VETERANS' COUNSELOR-C Gay Johnmer Work Phone: [facility] 03-16-2024 09:20-0400 Body mass index (BMI) [Ratio] 43 kg/m2 VETERANS' COUNSELOR-C Gayomer Johnmer Work Phone: [facility] 03-16-2024 09:20-0400 Body weight 124.73 kg VETERANS' COUNSELOR-C Gayomer Johnmer Work Phone: [facility] 02-21-2024 11:04-0400 Body temperature 97.2 [degF] Ma Sand Work Phone: [facility] 02-21-2024 11:04-0400 Diastolic blood pressure 68 mm[Hg] Ma Sand Work Phone: [facility] Comment on above: manual 02-21-2024 11:04-0400 Heart rate 95 /min Ma Sand Work Phone: [facility] 02-21-2024 11:04-0400 Respiratory rate 16 /min Ma Sand Work Phone: [facility] 02-21-2024 11:04-0400 SaO2% (BldA) [Mass fraction] 98 % Ma Sand Work Phone: [facility] 02-21-2024 11:04-0400 Systolic blood pressure 102 mm[Hg] Ma Sand Work Phone: [facility] Comment on above: manual 02-16-2024 09:23-0400 Diastolic blood pressure 72 mm[Hg] VETERANS' COUNSELOR-C Gay Johnmer Work Phone: [facility] 02-16-2024 09:23-0400 Heart rate 70 /min VETERANS' COUNSELOR-C Gay Britt Work Phone: [facility] 02-16-2024 09:23-0400 Respiratory rate 16 /min VETERANS' COUNSELOR-C Gay Britt Work Phone: [facility] 02-16-2024 09:23-0400 SaO2% (BldA) [Mass fraction] 96 % V[employer]ERANS' COUNSELOR-C Gay Britt Work Phone: [facility] 02-16-2024 09:23-0400 Systolic blood pressure 126 mm[Hg] VETERANS' COUNSELOR-C Gay Enciso Work Phone: [facility] 02-16-2024 07:27-0400 Body height 170.18 cm VETERANS' COUNSELOR-C Gay Enciso Work Phone: [facility] 02-16-2024 07:27-0400 Body weight 122.46 kg VETERANS' COUNSELOR-C Gay Enciso Work Phone: [facility] 01-28-2024 11:31-0400 Body weight 126.[address] [facility] 01-28-2024 11:31-0400 Diastolic blood pressure 80 mm[Hg] [facility] 01-28-2024 11:31-0400 Heart rate 69 /min [facility] 01-28-2024 11:31-0400 SaO2% (BldA) [Mass fraction] 98 % [facility] 01-28-2024 11:31-0400 Systolic blood pressure 120 mm[Hg] [facility] 01-25-2024 11:30-0400 Body temperature 97.39 [degF] Ma Sand Work Phone: [facility] 01-25-2024 11:30-0400 Diastolic blood pressure 67 mm[Hg] Ma Sand Work Phone: [facility] 01-25-2024 11:30-0400 Heart rate 68 /min Ma Sand Work Phone: [facility] 01-25-2024 11:30-0400 Respiratory rate 16 /min Ma Sand Work Phone: [facility] 01-25-2024 11:30-0400 SaO2% (BldA) [Mass fraction] 99 % Ma Sand Work Phone: [facility] 01-25-2024 11:30-0400 Systolic blood pressure 92 mm[Hg] Ma Sand Work Phone: [facility] 12-27-2023 11:16-0400 Diastolic blood pressure 68 mm[Hg] Neda Liz PA-C Work Phone: [facility] 12-27-2023 11:16-0400 Systolic blood pressure 98 mm[Hg] Neda Liz PA-C Work Phone: [facility] 12-27-2023 11:02-0400 Body height 170.2 cm Neda Liz PA-C Work Phone: [facility] 12-27-2023 11:02-0400 Body mass index (BMI) [Ratio] 43.08 kg/m2 Neda Liz PA-C Work Phone: [facility] 12-27-2023 11:02-0400 Body temperature 97.7 [degF] Neda Liz PA-C Work Phone: [facility] 12-27-2023 11:02-0400 Body weight 124.8 kg Neda Liz PA-C Work Phone: [facility] 12-27-2023 11:02-0400 Heart rate 89 /min Neda Liz PA-C Work Phone: [facility] 12-27-2023 11:02-0400 Respiratory rate 16 /min Neda Liz PA-C Work Phone: [facility] 12-27-2023 11:02-0400 SaO2% (BldA) [Mass fraction] 98 % Nead Liz PA-C Work Phone: [facility] 12-16-2023 14:130400 Body height 170.[address] [facility] 12-16-2023 14:130400 Body mass index (BMI) [Ratio] 42.7 kg/m2 [facility] 12-16-2023 14:13-0400 Body temperature 98.6 [degF] [facility] 12-16-2023 14:130400 Body weight 123.[address] [facility] 12-16-2023 14:13-0400 Diastolic blood pressure 73 mm[Hg] [facility] 12-16-2023 14:13-0400 Heart rate 75 /min [facility] 12-16-2023 14:13-0400 Systolic blood pressure 106 mm[Hg] [facility] 11-29-2023 13:43-0400 Body temperature 97.59 [degF] Ma Sand Work Phone: [facility] 11-29-2023 13:43-0400 Diastolic blood pressure 51 mm[Hg] Ma Sand Work Phone: [facility] 11-29-2023 13:43-0400 Heart rate 73 /min Ma Sand Work Phone: [facility] 11-29-2023 13:43-0400 Respiratory rate 16 /min Ma Sand Work Phone: [facility] 11-29-2023 13:43-0400 SaO2% (BldA) [Mass fraction] 96 % Ma Sand Work Phone: [facility] 11-29-2023 13:43-0400 Systolic blood pressure 83 mm[Hg] Ma Sand Work Phone: [facility] 11-04-2023 13:55-0400 Body height 170.[address] [facility] 11-04-2023 13:55-0400 Body temperature 97.3 [degF] [facility] 11-04-2023 13:55-0400 Diastolic blood pressure 54 mm[Hg] [facility] 11-04-2023 13:55-0400 Heart rate 62 /min [facility] 11-04-2023 13:55-0400 Systolic blood pressure 104 mm[Hg] [facility] 10-27-2023 14:44-0400 Body temperature 97 [degF] Ma Sand Work Phone: [facility] 10-27-2023 14:44-0400 Diastolic blood pressure 72 mm[Hg] Ma Sand Work Phone: [facility] 10-27-2023 14:44-0400 Heart rate 97 /min Ma Sand Work Phone: [facility] 10-27-2023 14:44-0400 Respiratory rate 18 /min Ma Sand Work Phone: [facility] 10-27-2023 14:44-0400 SaO2% (BldA) [Mass fraction] 97 % Ma Sand Work Phone: [facility] 10-27-2023 14:44-0400 Systolic blood pressure 110 mm[Hg] Ma Sand Work Phone: [facility] 10-20-2023 13:10-0400 Body height 170.[address] [facility] 10-20-2023 13:10-0400 Body mass index (BMI) [Ratio] 43.2 kg/m2 [facility] 10-20-2023 13:10-0400 Body temperature 97.3 [degF] [facility] 10-20-2023 13:10-0400 Body weight 125.[address] [facility] 10-20-2023 13:10-0400 Diastolic blood pressure 54 mm[Hg] [facility] 10-20-2023 13:10-0400 Heart rate 74 /min [facility] 10-20-2023 13:10-0400 Systolic blood pressure 111 mm[Hg] [facility] 09-30-2023 10:48-0400 Body temperature 97 [degF] Ma Sand Work Phone: [facility] 09-30-2023 10:48-0400 Diastolic blood pressure 82 mm[Hg] Ma Sand Work Phone: [facility] 09-30-2023 10:48-0400 Heart rate 71 /min Ma Sand Work Phone: [facility] 09-30-2023 10:48-0400 Respiratory rate 18 /min Ma Sand Work Phone: [facility] 09-30-2023 10:48-0400 SaO2% (BldA) [Mass fraction] 97 % Ma Sand Work Phone: [facility] 09-30-2023 10:48-0400 Systolic blood pressure 132 mm[Hg] Ma Sand Work Phone: [facility] 09-22-2023 14:41-0400 Body weight 117.[address] [facility] 08-31-2023 10:34-0400 Body temperature 97.3 [degF] Ma Sand Work Phone: [facility] 08-31-2023 10:34-0400 Diastolic blood pressure 66 mm[Hg] Ma Sand Work Phone: [facility] 08-31-2023 10:34-0400 Heart rate 68 /min Ma Sand Work Phone: [facility] 08-31-2023 10:34-0400 Respiratory rate 18 /min Ma Sand Work Phone: [facility] 08-31-2023 10:34-0400 SaO2% (BldA) [Mass fraction] 99 % Ma Sand Work Phone: [facility] 08-31-2023 10:34-0400 Systolic blood pressure 105 mm[Hg] Ma Sand Work Phone: [facility] 08-05-2023 11:15-0400 Body temperature 97.39 [degF] Ma Sand Work Phone: [facility] 08-05-2023 11:15-0400 Diastolic blood pressure 41 mm[Hg] Ma Sand Work Phone: [facility] 08-05-2023 11:15-0400 Heart rate 68 /min Ma Sand Work Phone: [facility] 08-05-2023 11:15-0400 Respiratory rate 18 /min Ma Sand Work Phone: [facility] 08-05-2023 11:15-0400 SaO2% (BldA) [Mass fraction] 98 % Ma Sand Work Phone: [facility] 08-05-2023 11:15-0400 Systolic blood pressure 98 mm[Hg] Ma Sand Work Phone: [facility] 07-13-2023 11:49-0500 Body temperature 97.5 [degF] Ma Sand Work Phone: [facility] 07-13-2023 11:49-0500 Diastolic blood pressure 74 mm[Hg] Ma Sand Work Phone: [facility] 07-13-2023 11:49-0500 Heart rate 83 /min Ma Sand Work Phone: [facility] 07-13-2023 11:49-0500 Respiratory rate 18 /min Cele Sand Work Phone: [facility] 07-13-2023 11:49-0500 SaO2% (BldA) [Mass fraction] 96 % Cele Sand Work Phone: [facility] 07-13-2023 11:49-0500 Systolic blood pressure 109 mm[Hg] Cele Sand Work Phone: [facility] 07-13-2023 10:01-0500 Diastolic blood pressure 65 mm[Hg] Lois Holm MD Work Phone: [facility] 07-13-2023 10:01-0500 Systolic blood pressure 105 mm[Hg] Lois Holm MD Work Phone: [facility] 07-13-2023 09:41-0500 Body height 170.2 cm Lois Holm MD Work Phone: [facility] 07-13-2023 09:41-0500 Body mass index (BMI) [Ratio] 43.85 kg/m2 Lois Holm MD Work Phone: [facility] 07-13-2023 09:41-0500 Body weight 127.01 kg Lois Holm MD Work Phone: [facility] 07-13-2023 09:41-0500 Heart rate 71 /min Losi Holm MD Work Phone: [facility] 07-06-2023 14:48-0500 Body mass index (BMI) [Ratio] 41.81 kg/m2 Kade Richardson MD Work Phone: [facility] 07-06-2023 14:48-0500 Body weight 119.3 kg Kade Richardson MD Work Phone: [facility] 06-09-2023 08:45-0500 Body height 170.2 cm Michelle Mitali GEAR GENERATOR SET UP OPERATOR-MANAGER EXPORT Work Phone: [facility] 06-09-2023 08:45-0500 Body mass index (BMI) [Ratio] 44.48 kg/m2 Michelle Mitali GEAR GENERATOR SET UP OPERATOR-MANAGER EXPORT Work Phone: [facility] 06-09-2023 08:45-0500 Body weight 128.82 kg Michelle Jasmine GEAR GENERATOR SET UP OPERATOR-MANAGER EXPORT Work Phone: [facility] 06-09-2023 08:45-0500 Diastolic blood pressure 82 mm[Hg] Michelle Jasmine GEAR GENERATOR SET UP OPERATOR-MANAGER EXPORT Work Phone: [facility] 06-09-2023 08:45-0500 Heart rate 80 /min Michelle Jasmine GEAR GENERATOR SET UP OPERATOR-MANAGER EXPORT Work Phone: [facility] 06-09-2023 08:45-0500 Systolic blood pressure 146 mm[Hg] Michelle Jasmine GEAR GENERATOR SET UP OPERATOR-MANAGER EXPORT Work Phone: [facility] 05-26-2023 17:17-0500 Body weight 123.83 kg Christie Phan MD Work Phone: [facility] 04-26-2023 14:42-0500 Body weight 125.19 kg Christie Phan MD Work Phone: [facility] 03-19-2023 11:16-0400 Body temperature 97.7 [degF] Ma Sand Work Phone: [facility] 03-19-2023 11:16-0400 Diastolic blood pressure 54 mm[Hg] Ma Sand Work Phone: [facility] 03-19-2023 11:16-0400 Heart rate 75 /min Ma Sand Work Phone: [facility] 03-19-2023 11:16-0400 Respiratory rate 16 /min Ma Sand Work Phone: [facility] 03-19-2023 11:16-0400 SaO2% (BldA) [Mass fraction] 96 % Ma Sand Work Phone: [facility] 03-19-2023 11:16-0400 Systolic blood pressure 111 mm[Hg] Ma Sand Work Phone: [facility] 02-19-2023 10:56-0400 Body height 170.2 cm Vera Najera MD Work Phone: [facility] 02-19-2023 10:56-0400 Body temperature 97.39 [degF] Vera Najera MD Work Phone: [facility] 02-19-2023 10:56-0400 Body weight 120.75 kg Vera Najera MD Work Phone: [facility] 02-19-2023 10:56-0400 Diastolic blood pressure 69 mm[Hg] Vera Najera MD Work Phone: [facility] 02-19-2023 10:56-0400 Heart rate 110 /min Vera Najera MD Work Phone: [facility] 02-19-2023 10:56-0400 Respiratory rate 16 /min Vera Najera MD Work Phone: [facility] 02-19-2023 10:56-0400 SaO2% (BldA) [Mass fraction] 96 % Vera Najera MD Work Phone: [facility] 02-19-2023 10:56-0400 Systolic blood pressure 132 mm[Hg] Vera Najera MD Work Phone: [facility] 01-22-2023 12:09-0400 Diastolic blood pressure 76 mm[Hg] Ma Sand Work Phone: [facility] 01-22-2023 12:09-0400 Systolic blood pressure 107 mm[Hg] Ma Sand Work Phone: [facility] 01-22-2023 12:08-0400 Body temperature 97.59 [degF] Ma Sand Work Phone: [facility] 01-22-2023 12:08-0400 Heart rate 102 /min Ma Sand Work Phone: [facility] 01-22-2023 12:08-0400 Respiratory rate 16 /min Ma Sand Work Phone: [facility] 01-22-2023 12:08-0400 SaO2% (BldA) [Mass fraction] 97 % Ma Sand Work Phone: [facility] 11-19-2022 11:00-0400 Body temperature 97.2 [degF] Ma Sand Work Phone: [facility] 11-19-2022 11:00-0400 Diastolic blood pressure 54 mm[Hg] Ma Sand Work Phone: [facility] 11-19-2022 11:00-0400 Heart rate 98 /min Ma Sand Work Phone: [facility] 11-19-2022 11:00-0400 Respiratory rate 16 /min Ma Sand Work Phone: [facility] 11-19-2022 11:00-0400 SaO2% (BldA) [Mass fraction] 98 % Ma Sand Work Phone: [facility] 11-19-2022 11:00-0400 Systolic blood pressure 126 mm[Hg] Ma Sand Work Phone: [facility] 10-22-2022 11:51-0400 Body height 170.2 cm Ma Sand Work Phone: [facility] 10-22-2022 11:51-0400 Body weight 120.66 kg Ma Sand Work Phone: [facility] 10-22-2022 11:51-0400 Respiratory rate 16 /min Ma Sand Work Phone: [facility] 10-22-2022 10:50-0400 Body height 170.2 cm Vera Najera MD Work Phone: [facility] 10-22-2022 10:50-0400 Body temperature 97 [degF] Vera Najera MD Work Phone: [facility] 10-22-2022 10:50-0400 Body weight 120.75 kg Vera Najera MD Work Phone: [facility] 10-22-2022 10:50-0400 Diastolic blood pressure 55 mm[Hg] Vera Najera MD Work Phone: [facility] 10-22-2022 10:50-0400 Heart rate 78 /min Vera Najera MD Work Phone: [facility] 10-22-2022 10:50-0400 Respiratory rate 16 /min Vera Najera MD Work Phone: [facility] 10-22-2022 10:50-0400 SaO2% (BldA) [Mass fraction] 98 % Vera Najera MD Work Phone: [facility] 10-22-2022 10:50-0400 Systolic blood pressure 132 mm[Hg] Vera Najera MD Work Phone: [facility] 09-24-2022 10:22-0400 Body height 170.2 cm Ma Sand Work Phone: [facility] 09-24-2022 10:22-0400 Body temperature 97 [degF] Ma Sand Work Phone: [facility] 09-24-2022 10:22-0400 Body weight 120.2 kg Ma Sand Work Phone: [facility] 09-24-2022 10:22-0400 Diastolic blood pressure 81 mm[Hg] Ma Sand Work Phone: [facility] 09-24-2022 10:22-0400 Heart rate 77 /min Ma Sand Work Phone: [facility] 09-24-2022 10:22-0400 Respiratory rate 16 /min Ma Sand Work Phone: [facility] 09-24-2022 10:22-0400 SaO2% (BldA) [Mass fraction] 97 % Ma Sand Work Phone: [facility] 09-24-2022 10:22-0400 Systolic blood pressure 116 mm[Hg] Ma Sand Work Phone: [facility] 09-07-2022 14:03-0400 Body weight 120.2 kg Christie Phan MD Work Phone: [facility] 08-27-2022 09:45-0400 Body height 170.2 cm Rebekah Rojas GEAR GENERATOR SET UP OPERATOR.MANAGER EXPORT Work Phone: [facility] 08-27-2022 09:45-0400 Body temperature 97.7 [degF] Rebekah Rojas APRN.MANAGER EXPORT Work Phone: [facility] 08-27-2022 09:45-0400 Body weight 118.66 kg Rebekah Rojas APRN.MANAGER EXPORT Work Phone: [facility] 08-27-2022 09:45-0400 Diastolic blood pressure 55 mm[Hg] Rebekah Rojas APRN.MANAGER EXPORT Work Phone: [facility] 08-27-2022 09:45-0400 Heart rate 63 /min Rebekah Rojas APRN.MANAGER EXPORT Work Phone: [facility] 08-27-2022 09:45-0400 Respiratory rate 16 /min Rebeakh Rojas APRN.MANAGER EXPORT Work Phone: [facility] 08-27-2022 09:45-0400 SaO2% (BldA) [Mass fraction] 96 % Rebekah Rojas APRN.MANAGER EXPORT Work Phone: [facility] 08-27-2022 09:45-0400 Systolic blood pressure 117 mm[Hg] Rebekah Rojas APRN.MANAGER EXPORT Work Phone: [facility] 05-20-2022 13:28-0500 Body height 170.2 cm Vera Najera MD Work Phone: [facility] 05-20-2022 13:28-0500 Body temperature 97.7 [degF] Vera Najera MD Work Phone: [facility] 05-20-2022 13:28-0500 Diastolic blood pressure 70 mm[Hg] Vera Najera MD Work Phone: [facility] 05-20-2022 13:28-0500 Heart rate 93 /min Vera Najera MD Work Phone: [facility] 05-20-2022 13:28-0500 Respiratory rate 16 /min Vera Najera MD Work Phone: [facility] 05-20-2022 13:28-0500 SaO2% (BldA) [Mass fraction] 97 % Vera Najera MD Work Phone: [facility] 05-20-2022 13:28-0500 Systolic blood pressure 127 mm[Hg] Vera Najera MD Work Phone: [facility] 03-18-2022 10:49-0400 Body height 170.2 cm Vera Najera MD Work Phone: [facility] 03-18-2022 10:49-0400 Body temperature 97.81 [degF] Vera Najera MD Work Phone: [facility] 03-18-2022 10:49-0400 Body weight 113.4 kg Vera Najera MD Work Phone: [facility] 03-18-2022 10:49-0400 Diastolic blood pressure 49 mm[Hg] Vera Najera MD Work Phone: [facility] 03-18-2022 10:49-0400 Heart rate 86 /min Vera Najera MD Work Phone: [facility] 03-18-2022 10:49-0400 Respiratory rate 16 /min Vera Najera MD Work Phone: [facility] 03-18-2022 10:49-0400 SaO2% (BldA) [Mass fraction] 98 % Vera Najera MD Work Phone: [facility] 03-18-2022 10:49-0400 Systolic blood pressure 145 mm[Hg] Vera Najera MD Work Phone: [facility] 03-09-2022 11:41-0400 Body height 170.2 cm Christie Phan MD Work Phone: [facility] 03-09-2022 11:41-0400 Body weight 112.49 kg Christie Phan MD Work Phone: [facility] 03-09-2022 11:41-0400 Diastolic blood pressure 100 mm[Hg] Christie Phan MD Work Phone: [facility] 03-09-2022 11:41-0400 Systolic blood pressure 158 mm[Hg] Christie Phan MD Work Phone: [facility] 03-04-2022 10:39-0400 Body height 170.2 cm Vera Najera MD Work Phone: [facility] 03-04-2022 10:39-0400 Body temperature 97.5 [degF] Vera Najera MD Work Phone: [facility] 03-04-2022 10:39-0400 Body weight 112.76 kg Vera Najera MD Work Phone: [facility] 03-04-2022 10:39-0400 Diastolic blood pressure 48 mm[Hg] Vera Najera MD Work Phone: [facility] 03-04-2022 10:39-0400 Heart rate 79 /min Vera Najera MD Work Phone: [facility] 03-04-2022 10:39-0400 Respiratory rate 16 /min Vera Najera MD Work Phone: [facility] 03-04-2022 10:39-0400 SaO2% (BldA) [Mass fraction] 99 % Vera Najera MD Work Phone: [facility] 03-04-2022 10:39-0400 Systolic blood pressure 132 mm[Hg] Vera Najera MD Work Phone: [facility] 11-26-2021 16:00-0400 Body height 168.91 cm Mirela Kelsey Other [employer] Other 11-26-2021 16:00-0400 Body mass index (BMI) [Ratio] 37.68 kg/m2 Mirela Kelsey Other [employer] Other 11-26-2021 16:00-0400 Body temperature 98.4 [degF] Mirela Buffy Other [employer] Other 11-26-2021 16:00-0400 Body weight 107.5 kg Mirela Kelsey Other [employer] Other 11-26-2021 16:00-0400 Diastolic blood pressure 61 mm[Hg] Mirela Kelsey Other [employer] Other 11-26-2021 16:00-0400 Systolic blood pressure 115 mm[Hg] Mirela Kelsey Other [employer] Other 10-24-2021 08:18-0400 Body weight 108.86 kg Lynne Ni MD Work Phone: [facility] 10-24-2021 08:18-0400 Diastolic blood pressure 42 mm[Hg] Lynne Ni MD Work Phone: [facility] 10-24-2021 08:18-0400 Heart rate 72 /min Lynne Ni MD Work Phone: [facility] 10-24-2021 08:18-0400 Systolic blood pressure 106 mm[Hg] Lynen Ni MD Work Phone: [facility] 10-15-2021 15:45-0400 Body height 168.91 cm Mirela Kelsey Other [employer] Other 10-15-2021 15:45-0400 Body mass index (BMI) [Ratio] 38.31 kg/m2 Mirela Kelsey Other [employer] Other 10-15-2021 15:45-0400 Body temperature 98.1 [degF] Mirela Kelsey Other [employer] Other 10-15-2021 15:45-0400 Body weight 109.32 kg Mirela Kelsey Other [employer] Other 10-15-2021 15:45-0400 Diastolic blood pressure 60 mm[Hg] Mirela Kelsey Other [employer] Other 10-15-2021 15:45-0400 Systolic blood pressure 114 mm[Hg] Mirela Kelsey Other [employer] Other 09-11-2021 15:15-0400 Body height 168.91 cm Mirela Kelsey Other [employer] Other 09-11-2021 15:15-0400 Body mass index (BMI) [Ratio] 37.99 kg/m2 Mirela Kelsey Other [employer] Other 09-11-2021 15:15-0400 Body temperature 97.9 [degF] Mirela Kelsey Other [employer] Other 09-11-2021 15:15-0400 Body weight 108.41 kg Mirela Buffy Other [employer] Other 09-11-2021 15:15-0400 Diastolic blood pressure 83 mm[Hg] Mirela Kelsey Other [employer] Other 09-11-2021 15:15-0400 Systolic blood pressure 144 mm[Hg] Mirela Kelsey Other [employer] Other 10-07-2020 12:45-0400 Diastolic blood pressure 78 mm[Hg] [facility] [employer] Phone: 10-07-2020 12:45-0400 Heart rate 68 /min [facility] [employer] Phone: 10-07-2020 12:45-0400 SaO2% (BldA) [Mass fraction] 99 % [facility] [employer] Phone: 10-07-2020 12:45-0400 Systolic blood pressure 112 mm[Hg] [facility] [employer] Phone: 10-07-2020 10:45-0400 Respiratory rate 22 /min [facility] [employer] Phone: 10-07-2020 09:01-0400 Body height 170.2 cm [facility] [employer] Phone: 10-07-2020 09:01-0400 Body mass index (BMI) [Ratio] 36.65 kg/m2 [facility] [employer] Phone: 10-07-2020 09:01-0400 Body temperature 97.81 [degF] [facility] [employer] Phone: 10-07-2020 09:01-0400 Body weight 106.14 kg [facility] [employer] Phone: Encounters Encounter Date Encounter Type Care Provider Facility Start: 02-21-2025 End: 02-22-2025 ambulatory VERA NAJERA Facility:[facility] Start: 02-14-2025 End: 02-14-2025 Office outpatient visit 15 minutes Bernabe English MD Work Phone: [facility] Comment on above: Pilonidal cyst (Primary Dx); Hidradenitis suppurativa Start: 02-14-2025 End: 02-14-2025 ambulatory BERNABE ENGLISH Not Available Start: 02-14-2025 End: 02-14-2025 Bamboo flowsheet Bernabe English MD Work Phone: [facility] Start: 02-14-2025 End: 02-14-2025 Bamderik flowsqian English MD Work Phone: [facility] Start: 02-14-2025 End: 02-14-2025 ambulatory Gay Enciso VETERANS' COUNSELOR-C Work Phone: [facility] Work Phone: Start: 02-14-2025 End: 02-14-2025 Patient encounter procedure Margie Arnett NP -[facility] Work Phone: Start: 02-08-2025 End: 02-09-2025 ambulatory LYNNE TSAI Facility:[facility] Start: 01-31-2025 End: 01-31-2025 Admission to same day surgery center Adolfo Kang MD -[facility] Work Phone: Start: 01-31-2025 End: 01-31-2025 ambulatory Gay Enciso VETERANS' COUNSELOR-C Work Phone: [facility] Work Phone: Start: 01-31-2025 Non-patient / Non-visit Adolfo Kang MD -[facility] Work Phone: Start: 01-26-2025 End: 01-26-2025 ambulatory OLY PARNELL Not Available Start: 01-24-2025 End: 01-24-2025 ambulatory Chair 2 Gabbi Work Phone: Hematology/Oncology Comment on above: Frequent infections (Primary Dx); Hypogammaglobulinemia (HCC); Bilateral leg weakness; Discoid lupus erythematosus; Elevated sed rate; Megaloblastic anemia due to vitamin B12 deficiency Start: 01-18-2025 End: 01-18-2025 Telephone encounter Lynne Ni MD Work Phone: Rheumatology Comment on above: Results Start: 01-17-2025 End: 01-17-2025 ambulatory Gay Enciso VETERANS' COUNSELOR-C Work Phone: [facility] Work Phone: Start: 01-17-2025 End: 01-17-2025 Patient encounter procedure Margie Arnett -[facility] Work Phone: Start: 01-11-2025 End: 01-12-2025 ambulatory Chair 16 [facility]bi Work Phone: Hematology/Oncology Comment on above: Other systemic lupus erythematosus with other organ involvement (HCC) (Primary Dx); Elevated LFTs; Anemia of chronic disease; Elevated sed rate; Elevated C-reactive protein (CRP); Vitamin D deficiency; Vitamin B12 deficiency; Screening-pulmonary TB Start: 12-27-2024 End: 12-27-2024 ambulatory VERA NAJERA Facility:[facility] Start: 12-14-2024 End: 12-14-2024 [facility] Work Phone: Neurology Comment on above: CMN Start: 12-14-2024 End: 12-15-2024 ambulatory Chair 16 Gabbi Work Phone: Hematology/Oncology Comment on above: Other systemic lupus erythematosus with other organ involvement (HCC) (Primary Dx) Start: 12-12-2024 End: 12-12-2024 Patient encounter procedure Bandar Batista APRN -[facility] Work Phone: Start: 11-30-2024 End: 11-30-2024 Follow-up encounter Vaibhav Carvalho APRN.CNP Work Phone: Hematology/Oncology Comment on above: Results Start: 11-30-2024 End: 11-30-2024 ambulatory Gay Enciso VETERANS' COUNSELOR-C Work Phone: [facility] Work Phone: Start: 11-30-2024 End: 11-30-2024 Patient encounter procedure Margie Arnett NP -[facility] Work Phone: Start: 11-29-2024 End: 11-29-2024 Office outpatient visit 25 minutes Vaibhav Carvalho APRN.CNP Work Phone: Hematology/Oncology Comment on above: Hypogammaglobulinemia [...] Not Available Start: 11-22-2024 ambulatory Janes Barfield Facility:[facility] Start: 11-22-2024 Registered Recurring Janes Barfield MD - Credible Start: 11-21-2024 End: 11-21-2024 ambulatory Gay Enciso VETERANS' COUNSELOR-C Work Phone: [facility] Work Phone: Start: 11-21-2024 End: 11-21-2024 Patient encounter procedure Adolfo Kang MD -[facility] Work Phone: Start: 11-21-2024 Non-patient / Non-visit Adolfo Kang MD -[facility] Work Phone: Start: 11-20-2024 End: 11-20-2024 Telephone encounter Vaibhav Carvalho APRN.CNP Work Phone: Hematology/Oncology Comment on above: Lab Orders Start: 11-16-2024 End: 11-17-2024 ambulatory Chair 16 Gabbi Work Phone: Hematology/Oncology Comment on above: Other systemic lupus erythematosus with other organ involvement (HCC) (Primary Dx) Start: 11-15-2024 End: 11-20-2024 Telephone encounter Cesilia Whalen [facility] Work Phone: [facility] HB[facility] Start: 11-13-2024 End: 11-13-2024 Patient encounter procedure Adolfo Kang MD -[facility] Work Phone: Start: 10-31-2024 End: 10-31-2024 [...] Start: 10-17-2024 End: 10-17-2024 ambulatory MANUEL FERRIS Facility:[facility] Start: 10-07-2024 End: 10-07-2024 Patient encounter [...] both feet; Long-term use of high-risk medication; long term 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; Bilateral hand pain; Family history of Crohn's disease; 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; Bilateral wrist pain Start: 10-07-2024 End: 10-07-2024 Telemedicine consultation with patient Lynne Ni MD Work Phone: Rheumatology Start: 10-07-2024 End: 10-07-2024 ambulatory LYNNE NI Facility:[facility] Start: 10-06-2024 End: 10-06-2024 Telephone encounter [...] 09-20-2024 End: 09-20-2024 Specialty Pharmacy Aidee Quintanilla [facility] Comment on above: SPP Inflammatory Conditions - Medication Refill (Benlysta) Start: 09-19-2024 End: 09-19-2024 ambulatory MANUEL FERRIS Facility:[facility] Start: 09-19-2024 End: 09-19-2024 Patient encounter procedure Deborah Arroyo [facility] Work Phone: [employer] Comment on above: Fibromyalgia (Primary Dx); Family history of disease of aorta; Family history of cancer Generalized articula r hypermobility (Primary Dx); Chronic pain syndrome; Discoid lupus erythematosus; Family history of pneumothorax in son; Family history of cancer; Family history of mild aortic dilation in daughter Start: 09-19-2024 End: 09-19-2024 ambulatory LYNNE NI Facility:[facility] Start: 09-18-2024 End: 09-18-2024 Telephone encounter Vera Najera MD Work Phone: [facility] Comment on above: Future Appointment Start: 09-18-2024 End: 09-18-2024 ambulatory Chair 19 Gabbi Work Phone: Hematology/Oncology Comment on above: Other systemic lupus erythematosus with other organ involvement (HCC) (Primary Dx) Refill Request Start: 09-07-2024 End: 09-07-2024 Follow-up encounter Vaibhav Carvalho APRN.MANAGER EXPORT Work Phone: Hematology/Oncology Comment on above: Results Start: 09-06-2024 End: 09-06-2024 Patient encounter procedure Adolfo Kang MD -[facility] Work Phone: Start: 09-06-2024 End: 09-12-2024 [...] Office outpatient visit 25 minutes Vaibhav Carvalho APRN.MANAGER EXPORT Work Phone: Hematology/Oncology Comment on above: Hypogammaglobulinemia (HCC) (Primary Dx) ; Vitamin B12 deficiency; Other iron deficiency anemia; Megaloblastic anemia due to vitamin B12 deficiency Start: 09-06-2024 End: 09-06-2024 ambulatory VAIBHAV CARVALHO Facility:[facility] Start: 09-04-2024 End: 09-04-2024 Office outpatient visit 25 minutes Gordo Barfield MD Work Phone: [facility] Comment on above: Thyroid nodule (CMS/HCC) (Primary Dx); LPRD (laryngopharyngeal reflux disease) Start: 09-04-2024 End: 09-04-2024 ambulatory GORDO BARFIELD Not Available Start: 09-04-2024 End: 09-04-2024 Bamderik flowsheet [facility]ordo [facility] MD [facility] Start: 09-04-2024 End: 09-04-2024 Bamderik flowsheet Gordo Barfield MD Work Phone: [facility] Start: 09-01-2024 End: 09-02-2024 Refill Lynne Ni MD Work Phone: Rheumatology Comment on above: Refill Request Start: 08-29-2024 End: 08-29-2024 ambulatory MANUEL FERRIS Facility:[facility] Start: 08-28-2024 End: 08-28-2024 Telephone encounter Vaibhav Carvalho APRN.CNP Work Phone: Hematology/Oncology Comment on above: Lab Orders Start: 08-24-2024 End: 08-24-2024 Clinisync Result Encounter Gordo Barfield MD Work Phone: [facility] External Department Unsolicited Start: 08-24-2024 End: 08-24-2024 Clinisync Result Encounter Gordo Barfield MD Work Phone: [facility] External Department Unsolicited Start: 08-22-2024 End: 08-22-2024 ambulatory Gay Enciso NP-C Work Phone: [facility] Work Phone: Start: 08-22-2024 End: 08-22-2024 Patient encounter procedure Gay Enciso NP-C Work Phone: [facility] Work Phone: Start: 08-17-2024 End: 08-17-2024 Specialty Pharmacy Aidee Quintanilla [facility] Comment on above: SPP Inflammatory Conditions - Medication Refill (Benlysta) Start: 08-08-2024 End: 08-08-2024 Telephone encounter Basia Samuel RN Hematology/Oncology Comment on above: Patient Question Start: 08-08-2024 End: 08-08-2024 ambulatory Chair Quinn Reese Work Phone: Hematology/Oncology Comment on above: Elevated sed rate (Primary Dx); Megaloblastic anemia due to vitamin B12 deficiency; Frequent infections; Hypogammaglobulinemia (HCC); Bilateral leg weakness; Discoid lupus erythematosus Start: 08-03-2024 End: 08-07-2024 Aaron Barnes PA-C Work Phone: Otolaryngology Comment on above: Med Change Request Start: 07-31-2024 End: 07-31-2024 ambulatory Gay GALEANO Work Phone: [facility] Work Phone: Start: 07-31-2024 End: 07-31-2024 Patient encounter procedure Gay GALEANO Work Phone: [facility] Work Phone: Start: 07-26-2024 End: 07-26-2024 Office outpatient visit 25 minutes Lois Holm MD Work Phone: [facility] Comment on above: Sinus tachycardia (Primary Dx); Shortness of breath; Paroxysmal supraventricular tachycardia (CMS-HCC); Essential hypertension; Obstructive sleep apnea syndrome; Morbid obesity (Multi); Current smoker Start: 07-26-2024 End: 07-26-2024 ambulatory LOIS Batista [facility] Ambulatory Start: 07-25-2024 End: 07-25-2024 [...] Start: 07-25-2024 End: 07-25-2024 Specialty Pharmacy Aidee Dwight [facility] Comment on above: [...] Non-patient / Non-visit Gay GALEANO Work Phone: [facility] Work Phone: Start: 07-19-2024 End: 07-19-2024 Admission to same day surgery center Gay GALEANO Work Phone: [facility] Work Phone: Start: 07-19-2024 End: 07-19-2024 ambulatory Gay GALEANO Work Phone: [facility] Work Phone: Start: 07-12-2024 End: 07-12-2024 ambulatory MARKY BARNES Facility:[facility] Start: 07-12-2024 End: 07-12-2024 Patient encounter [...] erythematosus Start: 07-10-2024 End: 07-10-2024 ambulatory [facility] Work Phone: Start: 07-10-2024 End: 07-10-2024 [facility] Work Phone: Start: 07-09-2024 End: 07-10-2024 Telephone encounter Lynne Ni MD Work Phone: Rheumatology Comment on above: Results Start: 06-30-2024 End: 06-30-2024 ambulatory LYNNE NI Facility:[facility] Start: 06-29-2024 End: 06-29-2024 Specialty Pharmacy Aidee Quintanilla [facility] Comment on above: SPP [...] End: 06-20-2024 Telephone encounter Vaibhav Carvalho APRN.MANAGER EXPORT Work Phone: Hematology/Oncology Start: 06-15-2024 End: 06-15-2024 Telephone encounter Oly WARREN Work Phone: [facility] Start: 06-14-2024 End: 06-14-2024 Nursing evaluation of patient and report Breath Test Silverio Cp Nsg Wl Work Phone: [facility] Comment on above: Diarrhea, unspecified type (Primary Dx); Abdominal pressure Start: 06-13-2024 End: 01-21-2025 Office outpatient visit 25 minutes Vaibhav Carvalho APRN.MANAGER EXPORT Work Phone: Hematology/Oncology Comment on above: Megaloblastic [...] End: 06-13-2024 Telephone encounter Vaibhav Carvalho APRN.MANAGER EXPORT Work Phone: Hematology/Oncology Comment on above: Lab Orders Start: 06-06-2024 End: 06-06-2024 Bamboo flowsheet Oly WARREN Work Phone: [facility] Start: 06-06-2024 End: 06-10-2024 Bamboo flowsheet Oly WARREN Work Phone: [facility] Start: 06-06-2024 End: 06-10-2024 Clinisync Result Encounter Oly WARREN Work Phone: [facility] External Department Unsolicited Start: 06-06-2024 End: 06-06-2024 Specialty Pharmacy Aidee Quintanilla [facility] Comment on above: [...] 05-15-2024 End: 05-15-2024 Social Work Deisy Jaime [employer] Hematology/Oncology Start: 05-12-2024 End: 05-12-2024 Specialty Pharmacy Aidee Quintanilla [facility] Comment on above: SPP Inflammatory Conditions - Medication Refill (Benlysta) Start: 04-28-2024 End: 04-28-2024 Orders Only Pepper Cotter LPN [facility] Comment on above: Peripheral vascular disease, unspecified (CMS-HCC) (Primary Dx); Cold extremities; Systemic lupus erythematosus (CMS-HCC) Start: 04-26-2024 End: 04-26-2024 ambulatory [facility] Facility:[facility] Start: 04-26-2024 End: 04-26-2024 Nursing evaluation of patient and report Cele Marshall Work Phone: Hematology/Oncology Comment on above: Elevated sed rate (Primary Dx); Megaloblastic anemia due to vitamin B12 deficiency Start: 04-14-2024 End: 10-05-2024 Telephone encounter [facility] Work Phone: [facility] Comment on above: Patient Update; Appointment Start: 04-11-2024 End: 04-11-2024 Specialty Pharmacy Aidee Quintanilla [facility] Comment on above: SPP Inflammatory Conditions - Medication Refill (Benlysta) Start: 04-10-2024 End: 04-10-2024 Bamboo flowsheet Gordo Barfield MD Work Phone: [facility] Start: 04-10-2024 End: 04-10-2024 Bamboo flowsheet Gordo Barfield MD Work Phone: [facility] Start: 04-10-2024 End: 04-10-2024 Telephone encounter Vera Najera MD Work Phone: [facility] Comment on above: Appointment Start: 04-10-2024 End: 04-10-2024 Office outpatient visit 25 minutes Gordo Barfield MD Work Phone: [facility] Comment on above: LPRD (laryngopharyngeal reflux disease) (Primary Dx); Acute otalgia, right Start: 04-10-2024 End: 04-10-2024 ambulatory GORDO BARFIELD Not Available Start: 04-07-2024 End: 04-07-2024 Social Work Desiy Jaime [facility] Hematology/Oncology Start: 04-06-2024 End: 04-06-2024 Clinisync Result Encounter Oly WARREN Work Phone: [facility] External Department Unsolicited Start: 04-06-2024 End: 04-06-2024 Clinisync Result Encounter Oly WARREN Work Phone: [facility] External Department Unsolicited Start: 04-06-2024 End: 04-06-2024 Office outpatient new 30 minutes Hayden Arciniega MD Work Phone: [facility] Comment on above: Systemic lupus erythematosus (CMS-HCC) ( Primary Dx); Cold extremities; Pain of lower extremity, unspecified laterality; Rheumatoid arthritis, involving unspecified site, unspecified whether rheumatoid factor present (CMS-HCC); Current smoker; 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 Start: 04-03-2024 End: 04-03-2024 Refill Marky Mike DO Work Phone: [facility] [phone] Comment on above: Oral thrush [...] 03-30-2024 ambulatory Maico Douglas MD Work Phone: [facility] Start: 03-27-2024 End: [...] Start: 03-27-2024 End: 03-28-2024 ambulatory VERA NAJERA Facility:[facility] Start: 03-23-2024 End: 03-23-2024 ambulatory OLY PARNELL Not Available Start: 03-23-2024 End: 03-23-2024 [...] 03-23-2024 Nursing evaluation of patient and report Cele Marshall Work Phone: Hematology/Oncology Comment on above: Elevated sed rate (Primary Dx); Megaloblastic anemia due to vitamin B12 deficiency Start: 03-23-2024 End: 03-23-2024 ambulatory MANUEL FERRIS Facility:[facility] Start: 03-20-2024 End: 03-30-2024 Telephone encounter Akiko Cooper MD Work Phone: [facility] Start: 03-18-2024 End: 03-18-2024 ambulatory LYNNE NI Facility:[facility] Start: 03-18-2024 End: 03-18-2024 Patient encounter [...] both feet; Long-term use of high-risk medication; long term 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; Bilateral hand [...] discharge Start: 03-16-2024 End: 03-16-2024 ambulatory LUAN VALDIVIA Not Available Start: 03-16-2024 End: 03-16-2024 ambulatory VETERANS' COUNSELOR-C Gay Enciso Work Phone: [facility] Work Phone: Start: 03-16-2024 End: 03-16-2024 Patient encounter procedure VETERANS' COUNSELOR-C Gay Enciso Work Phone: [facility] Work Phone: Start: 03-13-2024 End: 03-13-2024 Specialty Pharmacy Aidee Quintanilla [facility] Comment on above: SPP Inflammatory Conditions - Medication Refill (Benlysta - NCA 09/2024) Start: 03-08-2024 End: 03-08-2024 ambulatory EHAB [facility] Start: 03-07-2024 End: 03-08-2024 Chart abstracting [facility] Work Phone: Neurology Comment on above: cmn Start: 03-02-2024 End: 03-02-2024 Refill Zita Cuellar VETERANS' COUNSELOR Work Phone: [facility] 210 Comment on above: Lumbosacral radiculopathy at L5; Degenerative disc disease, lumbar; Cervical radiculopathy at C5 Start: 02-28-2024 End: 02-28-2024 ambulatory VETERANS' COUNSELOR-C Gay Enciso Work Phone: [facility] Work Phone: Start: 02-28-2024 End: 02-28-2024 Patient encounter procedure VETERANS' COUNSELOR-C Gay Enciso Work Phone: [facility] Work Phone: Start: 02-22-2024 End: 02-22-2024 Telephone encounter Oly CHO Work Phone: [facility] Comment on above: Video And Sound Recorder - Other (Eds scheduling ) Start: 02-21-2024 End: 02-21-2024 Nursing evaluation of patient and report Cele Nurse Dre Marshall Work Phone: Hematology/Oncology Comment on above: Elevated sed rate (Primary Dx); Megaloblastic anemia due to vitamin B12 deficiency Start: 02-18-2024 End: 02-18-2024 Telephone encounter Lynne Ni MD Work Phone: Rheumatology Start: 02-16-2024 Non-patient / Non-visit VETERANS' COUNSELOR-C Gay Enciso Work Phone: [facility] Work Phone: Start: 02-16-2024 End: 02-16-2024 Admission to same day surgery center VETERANS' COUNSELOR-C Gay Enciso Work Phone: [facility] Work Phone: Start: 02-16-2024 End: 02-16-2024 ambulatory VETERANS' COUNSELOR-C Gay Enciso Work Phone: [facility] Work Phone: Start: 02-15-2024 End: 02-15-2024 Telephone encounter Lexus Heck APRN.MANAGER EXPORT Work Phone: Neurology Comment on above: Orders (PAP RX.) Start: 02-14-2024 End: 02-14-2024 Follow-up encounter Aidee Quintanilla [facility] Comment on above: SPP Inflammatory Conditions - Follow-up (Benlysta); Insurance Authorization ([place] Renew[place] Submitted) Start: 02-14-2024 End: 02-14-2024 ambulatory Lexuschichi Heck APRN.MANAGER EXPORT Work Phone: Neurology Comment on above: JOSE RAFAEL (obstructive sleep apnea) (Primary D x); Somnolence, daytime SPP Inflammatory Con ditions - Medication Refill (Benlysta - NCA 09/2024) Start: 02-14-2024 End: 02-14-2024 Telemedicine consultation with patient Lexus Heck APROrionMANAGER EXPORT Work Phone: Neurology Start: 02-09-2024 End: 02-09-2024 Bamboo flowsheet Zita Cuellar VETERANS' COUNSELOR Work Phone: [facility] Start: 02-09-2024 End: 02-09-2024 Bamboo flowsheet Zita Cuellar VETERANS' COUNSELOR Work Phone: [facility] Start: 02-09-2024 End: 02-09-2024 Phys/qhp telephone evaluation 21-30 min Zita Cuellar VETERANS' COUNSELOR Work Phone: [facility] 210 Comment on above: Lumbosacral radiculopathy at L5 (Primary Dx); Degenerative disc disease, lumbar; Cervical radiculopathy at C5 Start: 02-07-2024 End: 02-07-2024 Refill Zita Cuellar VETERANS' COUNSELOR Work Phone: [facility] 210 Comment on above: Autoimmune disease (CMS/HCC); Fibromyalgia; Numbness Start: 01-28-2024 End: 01-31-2024 ambulatory Alhaji Head DO Work Phone: [facility] Work Phone: Comment on above: Blood work Start: 01-28-2024 End: 01-28-2024 Patient encounter procedure [facility] [place] Work Phone: Start: 01-27-2024 End: 01-27-2024 Telemedicine [...] 01-20-2024 Refill Kade Richardson MD Work Phone: [facility] 210 Comment on above: Degenerative disc disease, lumbar (Prima ry Dx); Lumbosacral radiculopathy at L5 Start: 01-18-2024 End: 01-19-2024 Specialty Pharmacy Aidee Quintanilla [facility] Comment on above: [...] apnea syndrome Start: 12-24-2023 End: 12-24-2023 ambulatory [facility] Start: 12-16-2023 End: 12-16-2023 ambulatory [facility] Work Phone: Start: 12-16-2023 End: 12-16-2023 Patient encounter procedure [facility] Work Phone: Start: 12-13-2023 Specialty Pharmacy Aidee Quintanilla [facility] Comment on above: [...] acid Start: 11-15-2023 Specialty Pharmacy Aidee Quintanilla [facility] Comment on above: SPP Inflammatory Conditions - Medication Refill (Benlysta - NCA 09/2024) Start: 11-11-2023 Refill Lynne Ni MD Work Phone: Rheumatology Comment on above: Refill Request Start: 11-04-2023 End: 11-04-2023 [facility] Work Phone: Start: 11-04-2023 End: 11-04-2023 Patient encounter procedure [facility] Work Phone: [...] Cdiff Start: 10-20-2023 End: 10-20-2023 ambulatory [facility] Work Phone: Start: 10-20-2023 End: 10-20-2023 Patient encounter procedure [facility] Work Phone: Start: 10-12-2023 Specialty Pharmacy Aidee Quintanilla [facility] Comment on above: [...] of Plaquenil; Long-term use of high-risk medication; long term 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; Raynaud's disease [...] Start: 09-22-2023 End: 09-22-2023 Patient encounter procedure [facility] Work Phone: Start: 09-13-2023 Specialty Pharmacy Aidee Quintanilla [facility] Comment on above: [...] with patient Vera Najera MD Work Phone: [place] Start: 09-04-2023 Telephone encounter Lynne Ni MD Work Phone: Rheumatology Comment on above: Results Start: 08-31-2023 End: 08-31-2023 Nursing evaluation of patient and report Cele Marshall Work Phone: Hematology/Oncology Comment on above: 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); Elevated sed rate Start: 08-12-2023 Specialty Pharmacy Aidee Quintanilla [facility] Comment on above: SPP Inflammatory Conditions - Medication Refill (Benlysta ) Start: 08-05-2023 End: 08-05-2023 Nursing evaluation of patient and report Cele Marshall Work Phone: Hematology/Oncology Comment on above: 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); Elevated sed rate Start: 07-28-2023 Non-patient / Non-visit [facility] Gastroenterology Work Phone: Start: 07-13-2023 ambulatory Aidee Quintanilla [facility] Start: 07-13-2023 End: 07-13-2023 Nursing evaluation of patient and report Cele Marshall Work Phone: Hematology/Oncology Comment on above: 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); Elevated sed rate SPP Inflammatory Con ditions - Medication Refill (Benlysta ) Start: 07-13-2023 End: 07-13-2023 Office outpatient new 45 minutes Lois Holm MD Work Phone: [facility] Comment on above: Shortness of breath (Primary Dx); Paroxysmal supraventricular tachycardia; PAC (premature atrial contraction); Current smoker; Systemic lupus erythematosus, unspecified SLE type, unspecified organ involvement status (CMS/HCC); Palpitations; Obstructive sleep apnea syndrome; Morbid obesity (CMS/HCC); Bilateral lower extremity edema Start: 07-06-2023 End: 07-06-2023 Office outpatient visit 25 minutes Kade Richardson MD Work Phone: [facility] 210 Comment on above: Autoimmune disease (CMS/HCC) (Primary Dx ); Autonomic dysfunction; Lumbosacral radiculopathy; Bilateral leg weakness Start: 07-05-2023 Chart abstracting Kade Richardson MD Work Phone: [facility] 210 Start: 06-09-2023 End: 06-09-2023 Office outpatient new 60 minutes Michelle Jasmine GEAR GENERATOR SET UP OPERATOR-MANAGER EXPORT Work Phone: [facility] Comment on above: Irregular heart rate (Primary [...] evaluation of patient and report Nurse Mora ananya Fu Work Phone: Rheumatology Comment on above: [...] deficiency; Elevated sed rate; Bilateral wrist pain; long term 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; Steroid-induced osteoporosis; [...] patient Lynne Ni MD Work Phone: [facility] Start: 01-28-2023 Refill Christie Phan MD [...] Misty Nelson MD Work Phone: [facility] Start: 12-24-2022 Refill Christie Phan MD Work Phone: [facility] Comment on above: Refill Request Start: 12-18-2022 Telephone encounter Lidia Argueta RN Work Phone: Hematology/Oncology Comment on above: Care Coordination (appointment) Start: 12-17-2022 End: 12-18-2022 ambulatory Rebekah Rojas APRN.MANAGER EXPORT Work Phone: Hematology/Oncology Comment on above: 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); Chronic fatigue and malaise Start: 12-17-2022 End: 12-18-2022 Telemedicine consultation with patient Rebekah Rojas APRN.MANAGER EXPORT Work Phone: [facility] Start: 12-16-2022 Telephone encounter [...] Facility:[facility] Start: 09-08-2022 Telephone encounter Angelia Washington [facility] Comment on above: Compliance [...] 08-27-2022 End: 08-27-2022 ambulatory Rebekah Rojas APRN.MANAGER EXPORT Work Phone: Hematology/Oncology Comment on above: 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); Elevated sed rate; High total serum IgM; Chronic fatigue and malaise; JOSE RAFAEL (obstructive sleep apnea) Start: 08-27-2022 End: 08-27-2022 Patient encounter procedure Rebekah Roajs APRN.MANAGER EXPORT Work Phone: [place] Start: 08-19-2022 Telephone encounter Lynne Ni MD Work Phone: Rheumatology Comment on above: Results Start: 08-15-2022 ambulatory Lynne Ni MD Work Phone: Rheumatology Comment on above: update Start: 08-10-2022 Refill Christie Phan MD Work Phone: [facility] Comment on above: Refill Request Start: 07-27-2022 End: 07-27-2022 ambulatory Lexus Heck APRN.CNP Work Phone: Neurology Comment on above: JOSE RAFAEL (obstructive sleep apnea) (Primary D x) Start: 07-27-2022 End: 07-27-2022 Telemedicine consultation with patient Lexus Heck APRN.MANAGER EXPORT Work Phone: [facility] Start: 07-24-2022 ambulatory Lynne Ni MD Work Phone: Rheumatology Comment on above: Blood work Start: 07-24-2022 Telephone encounter Vera Najera MD Work Phone: Hematology/Oncology Comment on above: Orders (Lab Orders Before Appoint ment) Start: 07-21-2022 ambulatory Lawanda Miranda MD Work Phone: [facility] Start: 07-21-2022 Patient encounter procedure [...] Coordinator [facility] Comment on above: Appointment; Video And Sound Recorder - Other Start: 03-31-2022 End: 04-01-[address] MANUEL FERRIS . Facility:[facility] Start: 03-31-2022 Refill Christie Phan MD Work Phone: [facility] Comment on above: Refill Request Start: 03-30-2022 [...] from caregiver Christie Phan MD Work Phone: [facility] Start: 03-18-2022 End: 03-18-2022 Patient encounter procedure Vera Najera MD Work Phone: [place] Start: 03-12-2022 End: 03-13-[address] MANUEL FERRIS . Facility:[facility] Start: 03-10-2022 End: 03-10-2022 ambulatory Alhaji Head DO Work Phone: Infectious Disease Comment on above: results Raised level of immu noglobulins (Primary Dx); Wound healing, delayed; Current smoker Start: 03-10-2022 E-mail encounter from caregiver Alhaji Head DO Work Phone: [facility] Start: 03-10-2022 End: 03-10-2022 Telemedicine consultation with patient Misty Nelson MD Work Phone: [facility] Start: 03-09-2022 End: 03-10-2022 ambulatory GAY ENCISO Facility:[facility] Start: 03-09-2022 End: 03-09-2022 Office consultation new/estab patient 80 min Christie Phan MD Work Phone: [facility] Comment on above: Obesity, Class II, BMI [...] encounter procedure Vera Najera MD Work Phone: [place] Start: 03-02-2022 Chart abstracting Vera Najera MD [...] with patient Alhaji Head DO Work Phone: [facility] Start: 02-14-2022 End: 02-15-[address] MANUEL FERRIS . Facility:[facility] Start: 11-26-2021 End: 11-26-2021 ambulatory Mirela Kelsey Other [employer] Other Start: 11-26-2021 Office outpatient visit 25 [...] 10-15-2021 End: 10-15-2021 ambulatory Mirela Kelsey Other [employer] Other Start: 10-15-2021 Office outpatient visit 25 minutes Mirela LOPEZ Infectious Disease Start: 10-03-2021 End: [address] MIRELA KELSEY Facility:[facility] Start: 09-18-2021 End: 09-18-2021 ambulatory Mirela Kelsey Other [employer] Other Start: 09-18-2021 Telephone encounter Mirela LOPEZ Infectious Disease Start: 09-11-2021 End: 09-11-2021 ambulatory Mirela Kelsey Other [employer] Other Start: 09-11-2021 Office outpatient new 45 minutes Mirela Buffy LOPEZ Infectious Disease Start: 10-07-2020 End: 10-08-2020 ambulatory AMEER LEYDI [facility] Start: 10-07-2020 End: 10-07-2020 Subsequent hospital visit by physician Stv Gravity Manager Rm A STVZ Gravity Manager Comment on above: Arrived Start: 09-14-2018 End: 09-17-2018 Patient encounter procedure VICTOR MANUEL GUZMAN [facility] Procedures Date Procedure Procedure Detail Performing Clinician Start: 01-31-2025 DH Nerve Radio Frequ ency (Bilateral) Gay Enciso VETERANS' COUNSELOR-C Work Phone: Start: 01-11-2025 Blood count complete automated Lynne Ni MD Work Phone: Start: 10-02-2024 Blood count complete automated Lynne Ni MD Work Phone: Start: 10-02-2024 C-reactive protein Christie Ni MD Work Phone: Start: 09-06-2024 Assay of gammaglobul in iga igd igg igm each Vaibhavanil Carvalho GEAR GENERATOR SET UP OPERATOR.MANAGER EXPORT Work Phone: Start: 08-24-2024 soft tissue head & neck real time imge docm Gordo Barfield MD Work Phone: Start: 07-19-2024 Injection of local anesthetic into sacroiliac joint Gay Enciso VETERANS' COUNSELOR-C Work Phone: Start: 06-13-2024 Blood count complete auto&auto difrntl wbc Vaibhav Carvalho GEAR GENERATOR SET UP OPERATOR.MANAGER EXPORT Work Phone: Start: 06-06-2024 IGP,APTIMA HPV,AGE GDLN [...] Injection of local anesthetic into sacroiliac joint VETERANS' COUNSELOR-C Gay Enciso Work Phone: Start: 07-13-2023 Ecg routine ecg w/le ast 12 lds w/i&r Lois Holm MD Work Phone: Start: 06-09-2023 Ecg routine ecg w/le ast 12 lds w/i&r Michelle Jasmine GEAR GENERATOR SET UP OPERATOR-MANAGER EXPORT Work Phone: Start: 09-10-2022 Microscopic observat ion [...] Urine test visual color cmprsn meths Jonas Black MD Work Phone: Start: 09-14-2018 Radex foot complete minimum 3 views VICTOR MANUEL GUZMAN Plan of Treatment Date Care Activity Detail Author Start: 09-11-2027 Screening for malignant neoplasm of cervix [facility] Start: 06-06-2027 Screening for malignant neoplasm of cervix [facility] Start: 09-10-2025 Screening for malignant neoplasm of cervix Pap Smear [facility] Start: 07-26-2025 End: 07-26-2025 Patient encounter procedure 07/26/2025 11:00 AM EST Office Visit [facility] [address] [place] [address] Lois Holm MD [address] [facility] [address] [place] [address] [facility] Start: 07-25-2025 End: 07-25-2025 Patient encounter procedure [facility]S [facility] Start: 04-20-2025 End: 01-18-2026 25-hydroxyvitamin D3 [Mass/volume] in Serum or Plasma VITAMIN D 25 HYDROXY Lab Routine Vitamin D deficiency Expected: 04/20/2025 (Approximate), Expires: 01/18/2026 [facility] Comment on above: Expected: 04/20/2025 (Approximate), Expi res: 01/18/2026 Start: 04-20-2025 End: 01-18-2026 C reactive protein [Mass/volume] in Serum or Plasma C-REACTIVE PROTEIN Lab Routine Elevated C-reactive protein (CRP) Elevated sed rate Expected: 04/20/2025 (Approximate), Expires: 01/18/2026 [facility] Comment on above: Expected: 04/20/2025 (Approximate), Expi res: 01/18/2026 Start: 04-20-2025 End: 01-18-2026 CBC panel - Blood by Automated count COMPLETE BLOOD COUNT Lab Routine Anemia of chronic disease Expected: 04/20/2025 (Approximate), Expires: 01/18/2026 [facility] Comment on above: Expected: 04/20/2025 (Approximate), Expi res: 01/18/2026 Start: 04-20-2025 End: 01-18-2026 Comprehensive metabolic 2000 panel - Serum or Plasma COMPREHENSIVE METABOLIC PANEL Lab Routine Elevated LFTs Expected: 04/20/2025 (Approximate), Expires: 01/18/2026 [facility] Work Phone: Comment on above: Expected: 04/20/2025 (Approximate), Expi res: 01/18/2026 Start: 04-20-2025 End: 01-18-2026 Erythrocyte sedimentation rate SEDIMENTATION RATE, WESTERGREN Lab Routine Elevated C-reactive protein (CRP) Elevated sed rate Expected: 04/20/2025 (Approximate), Expires: 01/18/2026 [facility] Comment on above: Expected: 04/20/2025 (Approximate), Expi res: 01/18/2026 Start: 04-07-2025 Screening for malignant neoplasm of breast Mammogram [facility] Start: 04-06-2025 Adult BMI Screening Adult BMI Screening [facility] Start: 04-06-2025 Screening for malignant neoplasm of breast Mammogram [facility] Start: 04-06-2025 Tobacco Screening Tobacco Screening [facility] Start: 03-19-2025 End: 03-19-2025 Patient encounter procedure NOMLucinda SELVIN SANTO Start: 03-17-2025 Diabetes mellitus screening Diabetes Screening [facility] Start: 02-21-2025 End: 02-21-2025 ambulatory Hematology/Oncology Comment on above: 3 mo F/U-IVIG Start: 02-21-2025 End: 02-21-2025 Patient encounter procedure 02/21/2025 8:45 AM EDT Office Visit [facility] [address] [place] [address] 3 mo F/U-IVIG [facility] Comment on above: 3 mo F/U-IVIG Start: 02-14-2025 End: 02-14-2025 Patient encounter procedure 02/14/2025 3:20 PM EDT Office Visit [facility] [address] [place] [id number] Bernabe English MD [address] [place] [address] Arrived [facility] Comment on above: Arrived Start: 02-08-2025 End: 02-08-2025 ambulatory 02/08/2025 2:00 PM EDT [facility] Hematology/Oncology [address] [place] [address] [place] [address] [facility] - Hematology/Oncology Comment on above: [facility] - Start: 01-31-2025 [facility] Start: 01-24-2025 End: 01-24-2025 ambulatory Hematology/Oncology Comment on above: IVIG q4 weeks IVIG(5hours) q4 week s Start: 01-22-2025 Influenza vaccination [facility] Start: 01-06-2025 End: 10-06-2025 25-hydroxyvitamin D3 [Mass/volume] in Serum or Plasma VITAMIN D 25 HYDROXY Lab Routine Vitamin D deficiency Expected: 01/06/2025 (Approximate), Expires: 10/06/2025 [facility] Comment on above: Expected: 01/06/2025 (Approximate), Expi res: 10/06/2025 Start: 01-06-2025 End: 10-06-2025 BLOOD TB SCREEN BLOOD TB SCREEN Lab Routine Screening-pulmonary TB Expected: 01/06/2025 (Approximate), Expires: 10/06/2025 [facility] Comment on above: Expected: 01/06/2025 (Approximate), Expi res: 10/06/2025 Start: 01-06-2025 End: 10-06-2025 C reactive protein [Mass/volume] in Serum or Plasma C-REACTIVE PROTEIN Lab Routine Elevated sed rate Elevated C-reactive protein (CRP) Expected: 01/06/2025 (Approximate), Expires: 10/06/2025 [facility] Comment on above: Expected: 01/06/2025 (Approximate), Expi res: 10/06/2025 Start: 01-06-2025 End: 10-06-2025 CBC panel - Blood by Automated count COMPLETE BLOOD COUNT Lab Routine Anemia of chronic disease Expected: 01/06/2025 (Approximate), Expires: 10/06/2025 [facility] Comment on above: Expected: 01/06/2025 (Approximate), Expi res: 10/06/2025 Start: 01-06-2025 End: 10-06-2025 Chronic hepatitis differentiation between hepatitis B and C virus panel - Serum or Plasma HEP REMOTE PANEL BL Lab Routine Elevated LFTs Expected: 01/06/2025 (Approximate), Expires: 10/06/2025 [facility] Comment on above: Expected: 01/06/2025 (Approximate), Expi res: 10/06/2025 Start: 01-06-2025 End: 10-06-2025 Cobalamin (Vitamin B12) [Mass/volume] in Serum or Plasma VITAMIN B12 Lab Routine Vitamin B12 deficiency Expected: 01/06/2025 (Approximate), Expires: 10/06/2025 [facility] Comment on above: Expected: 01/06/2025 (Approximate), Expi res: 10/06/2025 Start: 01-06-2025 End: 10-06-2025 Comprehensive metabolic 2000 panel - Serum or Plasma COMPREHENSIVE METABOLIC PANEL Lab Routine Elevated LFTs Expected: 01/06/2025 (Approximate), Expires: 10/06/2025 [facility] Work Phone: Comment on above: Expected: 01/06/2025 (Approximate), Expi res: 10/06/2025 Start: 01-06-2025 End: 10-06-2025 Erythrocyte sedimentation rate SEDIMENTATION RATE, WESTERGREN Lab Routine Elevated sed rate Elevated C-reactive protein (CRP) Expected: 01/06/2025 (Approximate), Expires: 10/06/2025 [facility] Comment on above: Expected: 01/06/2025 (Approximate), Expi res: 10/06/2025 Start: 12-27-2024 End: 12-27-2024 ambulatory 12/27/2024 9:00 AM EDT Infusion Center Hematology/Oncology [address] [place] [address] [place] [address] IVIG q4 weeks Hematology/Oncology Comment on above: IVIG q4 weeks Start: 12-14-2024 End: 12-14-2024 ambulatory 12/14/2024 2:00 PM EDT Infusion Center Hematology/Oncology [address] [place] [address] [place] [address] [facility] - Hematology/Oncology Comment on above: [facility] - Start: 11-29-2024 End: 11-29-2024 ambulatory Hematology/Oncology Comment on above: 3 mo F/U-IVIG(slow infusion per pt reque st/B12 +/-IV iron lab Start: 11-29-2024 End: 11-29-2024 Patient encounter procedure 11/29/2024 8:45 AM EDT Office Visit [facility] [address] [place] [address] [place] [address] 3 mo F/U-IVIG(slow infusion per pt request/B12 +/-IV iron lab [facility] Comment on above: 3 mo F/U-IVIG(slow infusion per pt reque st/B12 +/-IV iron lab Start: 11-20-2024 End: 02-19-2025 CBC W Auto Differential panel - Blood COMPLETE BLOOD COUNT AND DIFFERENTIAL Lab Routine Hypogammaglobulinemia (HCC) Expected: 11/20/2024, Expires: 02/19/2025 [facility] Work Phone: Comment on above: Expected: 11/20/2024, Expires: Start: 11-20-2024 End: 02-19-2025 Cobalamin (Vitamin B12) [Mass/volume] in Serum or Plasma VITAMIN B12 Lab Routine Hypogammaglobulinemia (HCC) Expected: 11/20/2024, Expires: 02/19/2025 [facility] Comment on above: Expected: 11/20/2024, Expires: Start: 11-20-2024 End: 02-19-2025 Comprehensive metabolic 2000 panel - Serum or Plasma COMPREHENSIVE METABOLIC PANEL Lab Routine Hypogammaglobulinemia (HCC) Expected: 11/20/2024, Expires: 02/19/2025 [facility] Comment on above: Expected: 11/20/2024, Expires: Start: 11-20-2024 End: 02-19-2025 Ferritin [Mass/volume] in Serum or Plasma FERRITIN Lab Routine Hypogammaglobulinemia (HCC) Expected: 11/20/2024, Expires: 02/19/2025 [facility] Comment on above: Expected: 11/20/2024, Expires: Start: 11-20-2024 End: 02-19-2025 Folate [Mass/volume] in Serum or Plasma FOLATE, SERUM Lab Routine Hypogammaglobulinemia (HCC) Expected: 11/20/2024, Expires: 02/19/2025 [facility] Comment on above: Expected: 11/20/2024, Expires: Start: 11-20-2024 End: 02-19-2025 IMMUNOGLOBULINS,IGG,IGA,IG M IMMUNOGLOBULINS,IGG,IGA,IG M Lab Routine Hypogammaglobulinemia (HCC) Expected: 11/20/2024, Expires: 02/19/2025 [facility] Comment on above: Expected: 11/20/2024, Expires: Start: 11-20-2024 Influenza vaccination Influenza Vaccine (#1) [facility] Comment on above: Postponed from 01/23/2024 (Patient Refus ed) Start: 11-20-2024 End: 02-19-2025 Iron and Iron binding capacity panel - Serum or Plasma IRON AND TIBC Lab Routine Hypogammaglobulinemia (HCC) Expected: 11/20/2024, Expires: 02/19/2025 [facility] Comment on above: Expected: 11/20/2024, Expires: Start: 11-16-2024 End: 11-16-2024 ambulatory 11/16/2024 2:00 PM EDT Infusion Center Hematology/Oncology [address] [place] [address] [facility] - Hematology/Oncology Comment on above: [facility] - Start: 11-01-2024 End: 11-01-2024 ambulatory 11/01/2024 9:00 AM EDT Infusion Center Hematology/Oncology [address] [place] [address] IVIG q 4 weeks with B 12 inj and lab Hematology/Oncology Comment on above: IVIG q 4 weeks with B 12 inj and lab Start: 10-31-2024 End: 10-31-2024 ambulatory 10/31/2024 9:00 AM EDT Infusion Center Hematology/Oncology [address] [place] [address] IVIG q 4 weeks with B 12 inj and lab Hematology/Oncology Comment on above: IVIG q 4 weeks with B 12 inj and lab Start: 10-19-2024 End: 10-19-2024 ambulatory 10/19/2024 2:00 PM EDT Infusion Center Hematology/Oncology [address] [place] [address] BENLYSTA - IVIG AND BENLYSTA AT LEAST 1 DAY APART FOR FUTURE APPTS Hematology/Oncology Comment on above: BENLYSTA - IVIG AND BENLYSTA AT LEAST 1 DAY APART FOR FUTURE APPTS Start: 10-18-2024 End: 10-18-2024 Specialty Pharmacy 10/18/2024 10:00 AM EDT Specialty Pharmacy [facility] [id number] [place] [address] Pharmacist, [facility] [address] [place] [address] [place] [address] REFILL- Benlysta- PAx 02/11/25- - mult call attempts [facility] Comment on above: REFILL- Benlysta- PAx 02/11/25- - mult call attempts Start: 10-07-2024 End: 10-07-2024 Follow-up encounter 10/07/2024 8:00 AM EDT [facility] Rheumatology [address] [facility] [place] [address] Lynne Ni MD [address] [facility] [place] [address] follow up visit Rheumatology Comment on above: follow up visit Start: 10-06-2024 End: 07-09-2025 25-hydroxyvitamin D3 [Mass/volume] in Serum or Plasma VITAMIN D 25 HYDROXY Lab Routine Vitamin D deficiency Expected: 10/06/2024 (Approximate), Expires: 07/09/2025 [facility] Comment on above: Expected: 10/06/2024 (Approximate), Expi res: 07/09/2025 Start: 10-06-2024 End: 07-09-2025 C reactive protein [Mass/volume] in Serum or Plasma C-REACTIVE PROTEIN Lab Routine Elevated sed rate Elevated C-reactive protein (CRP) Expected: 10/06/2024 (Approximate), Expires: 07/09/2025 [facility] Comment on above: Expected: 10/06/2024 (Approximate), Expi res: 07/09/2025 Start: 10-06-2024 End: 07-09-2025 CBC panel - Blood by Automated count COMPLETE BLOOD COUNT Lab Routine Anemia of chronic disease Expected: 10/06/2024 (Approximate), Expires: 07/09/2025 [facility] Comment on above: Expected: 10/06/2024 (Approximate), Expi res: 07/09/2025 Start: 10-06-2024 End: 07-09-2025 Comprehensive metabolic 2000 panel - Serum or Plasma COMPREHENSIVE METABOLIC PANEL Lab Routine Elevated LFTs Expected: 10/06/2024 (Approximate), Expires: 07/09/2025 [facility] Work Phone: Comment on above: Expected: 10/06/2024 (Approximate), Expi res: 07/09/2025 Start: 10-06-2024 End: 07-09-2025 Erythrocyte sedimentation rate SEDIMENTATION RATE, WESTERGREN Lab Routine Elevated sed rate Elevated C-reactive protein (CRP) Expected: 10/06/2024 (Approximate), Expires: 07/09/2025 [facility] Comment on above: Expected: 10/06/2024 (Approximate), [...] 10/02/2024 9:00 AM EDT Infusion Center Hematology/Oncology [address] [place] [address] [place] [address] IVIG q 4 weeks with B 12 inj and lab Hematology/Oncology Comment on above: IVIG q 4 weeks with B 12 inj and lab Start: 09-28-2024 End: 09-28-2024 Specialty Pharmacy 09/28/2024 10:00 AM EDT Specialty Pharmacy [facility] [address] [place] [address] Pharmacist, [facility] [address] [place] [address] [place] [address] REFILL- Benlysta- PAx 02/11/25- - LVM 09/20, 09/25 [facility] Comment on above: REFILL- Benlysta- PAx 02/11/25- thursdays - LVM 09/20, 09/25 Start: 09-25-2024 End: 09-25-2024 Specialty Pharmacy 09/25/2024 10:15 AM EDT Specialty Pharmacy [facility] [address] [place], [place] [id number] Pharmacist, [facility] [address] [place] [address] [address] [place] [id number] REFILL- Benlysta- PAx 02/11/25- thurs - LVM 09/20 [facility] Comment on above: REFILL- Benlysta- PAx 02/11/25 - LVM 09/20 Start: 09-20-2024 End: 09-20-2024 Specialty Pharmacy 09/20/2024 10:15 AM EDT Specialty Pharmacy [facility] [address] [place] [address] [id number] [place] [address] Pharmacist, [facility] [address] [place] [address] [place] [address] REFILL- Benlysta- PAx 02/11/25- - pend new Rx [facility] Comment on above: REFILL- [...] 9:30 AM EDT Infusion Center Hematology/Oncology [address] [facility] [address] 3 mo F/U-IVIG(slow infusion per pt request/B12 +/-IV iron Hematology/Oncology Comment on above: 3 mo F/U-IVIG(slow infusion per pt reque st/B12 +/-IV iron Start: 09-06-2024 End: 09-06-2024 Follow-up encounter Hematology/Oncology Comment on above: 3 month follow up IVIG for hypogammaglob ulinemia + b12 Start: 09-06-2024 End: 09-06-2024 Patient encounter procedure 09/06/2024 8:45 AM EDT Office Visit [facility] [address] [place] [address] 3 month follow up IVIG for hypogammaglobulinemia + b12 [facility] Comment on above: 3 month follow up IVIG for hypogammaglob ulinemia + b12 Start: 09-05-2024 End: 09-05-2024 Follow-up encounter Hematology/Oncology Comment on above: 3 month follow up IVIG for hypogammaglob ulinemia + b12 Start: 09-05-2024 End: 09-05-2024 Patient encounter procedure 09/05/2024 8:45 AM EDT Office Visit [facility] [address] [place] [address] 3 month follow up IVIG for hypogammaglobulinemia + b12 [facility] Comment on above: 3 month follow up IVIG for hypogammaglob ulinemia + b12 Start: 09-04-2024 End: 09-04-2024 Patient encounter procedure 09/04/2024 3:20 PM EDT Office Visit [facility] SANTO [address] [facility] [address] [place] [phone] Gordo Barfield MD [address] [facility] [address] [place] [address] Arrived [facility] S[facility] Comment on above: Arrived Start: 08-28-2024 End: 11-27-2024 CBC W Auto Differential panel - Blood COMPLETE BLOOD COUNT AND DIFFERENTIAL Lab Routine Vitamin B12 deficiency Other iron deficiency anemia Hypogammaglobulinemia (HCC) Expected: 08/28/2024, Expires: 11/27/2024 [facility] Work Phone: Comment on above: Expected: 08/28/2024, Expires: Start: 08-28-2024 End: 11-27-2024 Cobalamin (Vitamin B12) [Mass/volume] in Serum or Plasma VITAMIN B12 Lab Routine Vitamin B12 deficiency Other iron deficiency anemia Hypogammaglobulinemia (HCC) Expected: 08/28/2024, Expires: 11/27/2024 [facility] Comment on above: Expected: 08/28/2024, Expires: Start: 08-28-2024 End: 11-27-2024 Comprehensive metabolic 2000 panel - Serum or Plasma COMPREHENSIVE METABOLIC PANEL Lab Routine Vitamin B12 deficiency Other iron deficiency anemia Hypogammaglobulinemia (HCC) Expected: 08/28/2024, Expires: 11/27/2024 [facility] Comment on above: Expected: 08/28/2024, Expires: Start: 08-28-2024 End: 11-27-2024 Ferritin [Mass/volume] in Serum or Plasma FERRITIN Lab Routine Vitamin B12 deficiency Other iron deficiency anemia Hypogammaglobulinemia (HCC) Expected: 08/28/2024, Expires: 11/27/2024 [facility] Comment on above: Expected: 08/28/2024, Expires: Start: 08-28-2024 End: 11-27-2024 Folate [Mass/volume] in Serum or Plasma FOLATE, SERUM Lab Routine Vitamin B12 deficiency Other iron deficiency anemia Hypogammaglobulinemia (HCC) Expected: 08/28/2024, Expires: 11/27/2024 [facility] Comment on above: Expected: 08/28/2024, Expires: Start: 08-28-2024 End: 11-27-2024 IgG [Mass/volume] in Serum or Plasma IMMUNOGLOBULIN G Lab Routine Vitamin B12 deficiency Other iron deficiency anemia Hypogammaglobulinemia (HCC) Expected: 08/28/2024, Expires: 11/27/2024 [facility] Comment on above: Expected: 08/28/2024, Expires: Start: 08-28-2024 End: 11-27-2024 Iron and Iron binding capacity panel - Serum or Plasma IRON AND TIBC Lab Routine Vitamin B12 deficiency Other iron deficiency anemia Hypogammaglobulinemia (HCC) Expected: 08/28/2024, Expires: 11/27/2024 [facility] Comment on above: Expected: 08/28/2024, Expires: Start: 08-22-2024 End: 08-22-2024 Patient encounter procedure 08/22/2024 1:30 PM EDT Office Visit [facility] [address] [place] [address] Raj Kitchen MD [address] [place] [address] [facility] Start: 08-22-2024 End: 08-22-2024 Specialty Pharmacy 08/22/2024 10:15 AM EDT Specialty Pharmacy [facility] [address] [place], [place] [id number] Pharmacist, [facility] [address] [place] [address] [place] [address] REFILL- Benlysta- PAx 02/11/25 [facility] 08/17 [facility] Comment on above: REFILL- Benlysta- PAx 02/11/25 [facility] 08/17 Start: 08-17-2024 End: 08-17-2024 Specialty Pharmacy 08/17/2024 10:00 AM EDT Specialty Pharmacy [facility] [address] [place] [phone] Pharmacist, [facility] [address] [place] [address] [place] [address] REFILL- Benlysta- PAx 02/11/25 [facility] Comment on above: REFILL- Benlysta- PAx 02/11/25 Start: 08-15-2024 End: 08-15-2024 Patient encounter procedure 08/15/2024 10:20 AM EDT Office Visit [facility] [address] [facility] [address] [place] [address] Gordo Barfield MD [address] [facility] 130 [place] [address] [facility] Start: 08-08-2024 End: 08-08-2024 ambulatory 08/08/2024 9:30 AM EDT Infusion Center Hematology/Oncology [address] [place] [address] [place] [address] IVIG for hypogammaglobulinemia + b12 Hematology/Oncology Comment on above: IVIG for hypogammaglobulinemia + b12 Start: 08-01-2024 End: 08-01-2024 Patient encounter procedure 08/01/2024 10:30 AM EDT Office Visit [facility] [address] [place] [phone] Bernabe English MD [address] [place] [address] [facility] Start: 07-25-2024 End: 07-25-2024 Specialty Pharmacy [facility] Comment on above: REFILL- Benlysta- PAx 02/11/25- Arrived Start: 07-20-2024 End: 07-20-2024 ambulatory 07/20/2024 11:30 AM EST [facility] Infectious Disease [address] [place] [address] Alhaji Head DO [address] [place] [address] Positive blood cultures [R78.81] Infectious Disease Comment on above: Positive blood cultures [R78.81] Start: 07-20-2024 End: 07-20-2024 Patient encounter procedure 07/20/2024 11:30 AM EST Office Visit Infectious Disease [address] [place] [address] Alhaji Head DO [address] [place] [address] Positive blood cultures [R78.81] Infectious Disease Comment on above: Positive blood cultures [R78.81] Start: 07-19-2024 [facility] Start: 07-13-2024 End: 07-13-2024 Patient encounter procedure 07/13/2024 9:20 AM EST Office Visit [place] [address] [facility] [address] [place] [phone] Lois Holm MD 703 [facility] [address] [place] [address] [facility] Start: 07-12-2024 End: 07-12-2024 Patient encounter procedure 07/12/2024 2:40 PM EST Office Visit Otolaryngology [address] [place] [address] Marky Barnes PA-C [address] [place], [place] [id number] Recurrent Thrush. Otolaryngology Comment on above: Recurrent Thrush. Start: 07-11-2024 End: 07-11-2024 ambulatory 07/11/2024 9:30 AM EST Infusion Center Hematology/Oncology [address] [place] [address] [place] [address] IVIG for hypogammaglobulinemia + b12 Hematology/Oncology Comment on above: IVIG for hypogammaglobulinemia + b12 Start: 07-03-2024 End: 04-02-2025 25-hydroxyvitamin D3 [Mass/volume] in Serum or Plasma VITAMIN D 25 HYDROXY Lab Routine Vitamin D deficiency Expected: 07/03/2024 (Approximate), Expires: 04/02/2025 [facility] Comment on above: Expected: 07/03/2024 (Approximate), Expi res: 04/02/2025 Start: 07-03-2024 End: 04-02-2025 C reactive protein [Mass/volume] in Serum or Plasma C-REACTIVE PROTEIN Lab Routine Elevated sed rate Elevated C-reactive protein (CRP) Expected: 07/03/2024 (Approximate), Expires: 04/02/2025 [facility] Comment on above: Expected: 07/03/2024 (Approximate), Expi res: 04/02/2025 Start: 07-03-2024 End: 04-02-2025 CBC panel - Blood by Automated count COMPLETE BLOOD COUNT Lab Routine Anemia of chronic disease Expected: 07/03/2024 (Approximate), Expires: 04/02/2025 [facility] Comment on above: Expected: 07/03/2024 (Approximate), Expi res: 04/02/2025 Start: 07-03-2024 End: 04-02-2025 Comprehensive metabolic 2000 panel - Serum or Plasma COMPREHENSIVE METABOLIC PANEL Lab Routine Elevated LFTs Expected: 07/03/2024 (Approximate), Expires: 04/02/2025 [facility] Work Phone: Comment on above: Expected: 07/03/2024 (Approximate), Expi res: 04/02/2025 Start: 07-03-2024 End: 04-02-2025 Erythrocyte sedimentation rate SEDIMENTATION RATE, WESTERGREN Lab Routine Elevated sed rate Elevated C-reactive protein (CRP) Expected: 07/03/2024 (Approximate), Expires: 04/02/2025 [facility] Comment on above: Expected: 07/03/2024 (Approximate), Expi res: 04/02/2025 Start: 06-29-2024 End: 06-29-2024 Specialty Pharmacy 06/29/2024 10:00 AM EST Specialty Pharmacy [facility] [address] [facility] [id number] [place] [address] Pharmacist, [facility] [address] [place] [address] [place] [address] REFILL- Benlysta- PAx 02/11/25 [facility] Comment on above: REFILL- Benlysta- PAx 02/11/25 Start: 06-26-2024 End: 06-26-2024 Nursing evaluation of patient and report 06/26/2024 9:45 AM EST Nurse Visit Hematology/Oncology [address] [facility] [place] [address] Cele Marshall Nurse Dre [address] [facility] [place] [address] B12 Hematology/Oncology Comment on above: B12 Start: 06-26-2024 End: 06-26-2024 ambulatory Hematology/Oncology Comment on above: RTC 3 month IVIG for hypogammagl obulinemia Start: 06-26-2024 End: 06-26-2024 Patient encounter procedure 06/26/2024 8:45 AM EST Office Visit [facility] [address] [facility] [place] [address] [facility] Comment on above: labs Start: 06-14-2024 End: 06-14-2024 Nursing evaluation of patient and report [facility] Comment on above: Abdominal Pain/Diarrhea/Bandar S MANAGER EXPORT order ed/Patient has prep thru MyChart//cc SIBO - Abdominal Gus n/Diarrhea/Bandar S MANAGER EXPORT ordered/Patient has prep thru MyChart//cc Order in Scanned Documents Start: 06-13-2024 End: 09-12-2024 Cobalamin (Vitamin B12) [Mass/volume] in Serum or Plasma [facility] Comment on above: Expected: 06/13/2024, Expires: Start: 06-13-2024 End: 09-12-2024 Ferritin [Mass/volume] in Serum or Plasma [facility] Work Phone: Comment on above: Expected: 06/13/2024, Expires: Start: 06-13-2024 End: 09-12-2024 Folate [Mass/volume] in Serum or Plasma [facility] Comment on above: Expected: 06/13/2024, Expires: Start: 06-13-2024 End: 09-12-2024 Iron and Iron binding capacity panel - Serum or Plasma [facility] Comment on above: Expected: 06/13/2024, Expires: Start: 06-13-2024 End: 06-13-2024 Nursing evaluation of patient and report 06/13/2024 9:45 AM EST Nurse Visit Hematology/Oncology [address] [facility] [place] [address] Cele Marshall Nurse Dre [address] [facility] [place] [address] B12 Hematology/Oncology Comment on above: B12 Start: 06-13-2024 End: 06-13-2024 ambulatory Hematology/Oncology Comment on above: RTC 3 month IVIG for hypogammagl obulinemia Start: 06-13-2024 End: 06-13-2024 Patient encounter procedure 06/13/2024 8:45 AM EST Office Visit [facility] [address] [facility] [place] [address] [facility] Comment on above: labs Start: [...] 05/29/2024 9:30 AM EST Nurse Visit Hematology/Oncology [address] [place] [address] [place] [address] Joanna Id Nurse Dre [address] [facility] [place] [address] B12 Hematology/Oncology Comment on above: B12 Start: 05-19-2024 End: 05-19-2024 ambulatory 05/19/2024 9:30 AM EST Infusion Center Hematology/Oncology [address] [place] [address] [place] [address] IVIG for hypogammaglobulinemia Hematology/Oncology Comment on above: IVIG for hypogammaglobulinemia Start: 05-12-2024 End: 05-12-2024 Specialty Pharmacy 05/12/2024 10:00 AM EST Specialty Pharmacy [facility] [address] [place], [place] [id number] [place] [address] Pharmacist, [facility] [address] [place] [address] [place], [place] [id number] REFILL- Benlysta- PAx 02/11/25 [facility] Comment on above: REFILL- Benlysta- PAx 02/11/25 Start: 04-28-2024 End: 04-28-2025 US.doppler Extremity arteries - bilateral for physiologic artery study Vas art doppler lwr bilat mult lev/PVR Vascular Ultrasound Routine Peripheral vascular disease, unspecified ([facility]) Cold extremities Systemic lupus erythematosus ([facility]) Expected: 04/28/2024, Expires: 04/28/2025 [facility] Work Phone: Comment on above: Expected: 04/28/2024, Expires: Start: 04-24-2024 End: 04-24-2024 Nursing evaluation of patient and report 04/24/2024 9:30 AM EST Nurse Visit Hematology/Oncology [address] [facility] [place] [address] Joanna Id Nurse Dre [address] [facility] [place] [address] B12 Hematology/Oncology Comment on above: B12 Start: 04-18-2024 End: 04-18-2024 Nursing evaluation of patient and report [facility] Comment on above: [...] lower extremity, unspecified laterality Systemic lupus erythematosus ([facility]) Expected: 04/06/2024, Expires: 2025 [facility] Work Phone: Comment on above: Expected: 04/06/2024, Expires: Start: 03-28-2024 End: 03-28-2024 ambulatory 03/28/2024 1:00 PM EST [facility] Hematology/Oncology [address] [facility] [place] [address] Vera Najera MD [address] [facility] [place] [address] 13 wk virtual after labs last week Hematology/Oncology Comment on above: 13 wk virtual after labs last week Start: 03-23-2024 End: 03-23-2025 aPTT in Blood by Coagulation assay APTT Lab Routine Menorrhagia with regular cycle Expected: 03/23/2024 (Approximate), Expires: 03/23/2025 [facility] Comment on above: Expected: 03/23/2024 (Approximate), Expi res: 03/23/2025 Start: 03-23-2024 End: 03-23-2025 US for US PELVIS-TRANSVAG IF INDICATED Imaging Routine Menorrhagia with regular cycle Expected: 03/23/2024 (Approximate), Expires: 03/23/2025 [facility] Comment on above: Expected: 03/23/2024 (Approximate), Expi res: 03/23/2025 Start: 03-21-2024 End: 03-21-2024 Nursing evaluation of patient and report 03/21/2024 11:45 AM EDT Nurse Visit Hematology/Oncology [address] [facility] [place] [address] Cele Marshall Nurse Dre [address] [facility] [place] [address] b12 Hematology/Oncology Comment on above: b12 Start: 03-21-2024 End: 03-21-2024 Patient encounter procedure 03/21/2024 11:15 AM EDT Office Visit [facility] [address] [facility] [place] [address] [facility] Comment on above: LAb Start: 03-20-2024 End: 12-29-2024 25-hydroxyvitamin D3 [Mass/volume] in Serum or Plasma VITAMIN D 25 HYDROXY Lab Routine Vitamin D deficiency Expected: 03/20/2024 (Approximate), Expires: 12/29/2024 [facility] Comment on above: Expected: 03/20/2024 (Approximate), Expi res: 12/29/2024 Start: 03-20-2024 End: 12-29-2024 BLOOD TB SCREEN BLOOD TB SCREEN Lab Routine Screening-pulmonary TB Expected: 03/20/2024 (Approximate), Expires: 12/29/2024 [facility] Comment on above: Expected: 03/20/2024 (Approximate), Expi res: 12/29/2024 Start: 03-20-2024 End: 12-29-2024 C reactive protein [Mass/volume] in Serum or Plasma C-REACTIVE PROTEIN Lab Routine Elevated C-reactive protein (CRP) Elevated sed rate Expected: 03/20/2024 (Approximate), Expires: 12/29/2024 [facility] Comment on above: Expected: 03/20/2024 (Approximate), Expi res: 12/29/2024 Start: 03-20-2024 End: 06-19-2024 CBC W Auto Differential panel - Blood COMPLETE BLOOD COUNT AND DIFFERENTIAL Lab Routine Megaloblastic anemia due to vitamin B12 deficiency Elevated sed rate Obstructive sleep apnea syndrome Expected: 03/20/2024 (Approximate), Expires: 06/19/2024 [facility] Comment on above: Expected: 03/20/2024 (Approximate), Expi res: 06/19/2024 Start: 03-20-2024 End: 06-19-2024 Cobalamin (Vitamin B12) [Mass/volume] in Serum or Plasma VITAMIN B12 Lab Routine Megaloblastic anemia due to vitamin B12 deficiency Elevated sed rate Obstructive sleep apnea syndrome Expected: 03/20/2024 (Approximate), Expires: 06/19/2024 [facility] Comment on above: Expected: 03/20/2024 (Approximate), Expi res: 06/19/2024 Start: 03-20-2024 End: 06-19-2024 Comprehensive metabolic 2000 panel - Serum or Plasma COMPREHENSIVE METABOLIC PANEL Lab Routine Megaloblastic anemia due to vitamin B12 deficiency Elevated sed rate Obstructive sleep apnea syndrome Expected: 03/20/2024 (Approximate), Expires: 06/19/2024 [facility] Work Phone: Comment on above: Expected: 03/20/2024 (Approximate), Expi res: 06/19/2024 Start: 03-20-2024 End: 12-29-2024 Erythrocyte sedimentation rate SEDIMENTATION RATE, WESTERGREN Lab Routine Elevated C-reactive protein (CRP) Elevated sed rate Expected: 03/20/2024 (Approximate), Expires: 12/29/2024 [facility] Work Phone: Comment on above: Expected: 03/20/2024 (Approximate), Expi res: 12/29/2024 Start: 03-20-2024 End: 06-19-2024 Ferritin [Mass/volume] in Serum or Plasma FERRITIN Lab Routine Megaloblastic anemia due to vitamin B12 deficiency Elevated sed rate Obstructive sleep apnea syndrome Expected: 03/20/2024 (Approximate), Expires: 06/19/2024 [facility] Comment on above: Expected: 03/20/2024 (Approximate), Expi res: 06/19/2024 Start: 03-20-2024 End: 06-19-2024 Folate [Mass/volume] in Serum or Plasma FOLATE, SERUM Lab Routine Megaloblastic anemia due to vitamin B12 deficiency Elevated sed rate Obstructive sleep apnea syndrome Expected: 03/20/2024 (Approximate), Expires: 06/19/2024 [facility] Comment on above: Expected: 03/20/2024 (Approximate), Expi res: 06/19/2024 Start: 03-20-2024 End: 06-19-2024 IMMUNOGLOBULINS,IGG,IGA,IG M IMMUNOGLOBULINS,IGG,IGA,IG M Lab Routine Megaloblastic anemia due to vitamin B12 deficiency Elevated sed rate Obstructive sleep apnea syndrome Expected: 03/20/2024 (Approximate), Expires: 06/19/2024 [facility] Comment on above: Expected: 03/20/2024 (Approximate), Expi res: 06/19/2024 Start: 03-20-2024 End: 06-19-2024 Iron and Iron binding capacity panel - Serum or Plasma IRON AND TIBC Lab Routine Megaloblastic anemia due to vitamin B12 deficiency Elevated sed rate Obstructive sleep apnea syndrome Expected: 03/20/2024 (Approximate), Expires: 06/19/2024 [facility] Comment on above: Expected: 03/20/2024 (Approximate), Expi res: 06/19/2024 Start: 03-18-2024 End: 03-18-2024 Patient encounter procedure 03/18/2024 9:00 AM EDT [facility] Rheumatology [address] [place] [address] Lynne Ni MD [address] [facility] [address] [place] [address] May offer 03/18/24 Sat [facility] 4th floor in person/virtual/phone for lupus Rheumatology Comment on above: May offer 03/18/24 Sat REJ 4th floor in person/virtual/phone for lupus Start: 03-16-2024 Patient referral [facility] Work Phone: Start: 03-16-2024 End: 05-16-2025 US Breast - bilateral Bilateral breast US complete Imaging Routine Nipple discharge Expected: 03/16/2024, Expires: 05/16/2025 [facility] Work Phone: Comment on above: Expected: 03/16/2024, [...] 11:45 AM EDT Nurse Visit Hematology/Oncology [address] [facility] [place] [address] Cele Marshall Nurse Dre [address] [place] [address] b12 Hematology/Oncology Comment on above: b12 Start: 02-22-2024 End: 02-22-2024 Patient encounter procedure 02/22/2024 11:15 AM EDT Office Visit [facility] [address] [place] [address] [facility] Comment on above: LAb Start: 02-21-2024 End: 02-21-2024 Nursing evaluation of patient and report 02/21/2024 10:45 AM EDT Nurse Visit Hematology/Oncology [address] [place] [address] Cele Marshall Nurse Dre [address] [facility] [place] [address] b12 Hematology/Oncology Comment on above: b12 Start: 02-21-2024 End: 02-21-2024 Patient encounter procedure 02/21/2024 10:30 AM EDT Office Visit [facility] [address] [facility] [place] [address] [facility] Comment on above: LAb Start: 02-16-2024 [facility] Start: 02-14-2024 End: 02-14-2024 Follow-up encounter Neurology Comment on above: Cpap follow up REFILL- Benlysta- PA x 02/04/24- NCA 09/2024-, ND 02/23 Start: 02-09-2024 End: 02-09-2024 Patient encounter procedure 02/09/2024 8:00 AM EDT Office Visit [facility] NEURO [address] [place] [id number] Zita Cuellar, [employer] [address] [place] [address] [facility] 210 Start: 01-27-2024 End: 04-27-2024 Bacteria identified in Blood by Culture BLOOD CULTURE Microbiology Routine Pseudomonas infection Expected: 01/27/2024, Expires: 04/27/2024 [facility] Work Phone: Comment on above: Expected: 01/27/2024, Expires: Start: 01-27-2024 End: 01-27-2024 Follow-up encounter 01/27/2024 10:00 AM EDT [facility] Infectious Disease [address] [place] [address] Alhaji Head DO [address] [place] [address] follow up Infectious Disease Comment on above: follow up Start: 01-25-2024 End: 01-25-2024 Nursing evaluation of patient and report Hematology/Oncology Comment on above: b12 B12(change date) Start: 01-25-2024 End: 01-25-[address] [facility] Comment on above: LAb NO LAB ORDERS LAb Start: 01-24-2024 Influenza vaccination Influenza Vaccine (#1) [facility] Comment on above: Postponed from 01/22/2023 (Patient Refus ed) Start: 01-23-2024 Covid-19 Vaccine ( season) Covid-19 Vaccine ( season) [facility] Start: 01-23-2024 Covid-19 Vaccine ( season) Covid-19 Vaccine ( season) [facility] Start: 01-23-2024 Influenza vaccination [facility] Start: 01-20-2024 End: 01-20-2024 Specialty Pharmacy [facility] Comment on above: refill - benlysta- NCA 09/2024-- pa exp: 02/04/24- 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 Start: 12-27-2023 End: 12-27-2023 Nursing evaluation of patient and report 12/27/2023 12:00 PM EDT Nurse Visit Hematology/Oncology [address] [facility] [place] [address] Cele Marshall Nurse Dre [address] [facility] [place] [address] b12 Hematology/Oncology Comment on above: b12 Start: 12-27-2023 End: 12-27-2023 Follow-up encounter 12/27/2023 11:30 AM EDT Visit (SP) Office Hematology/Oncology [address] [facility] [place] [address] Neda Hill, PA-C [address] [facility] [place] [address] 13 week follow up, labs 1 week before Hematology/Oncology Comment on above: 13 week follow up, labs 1 week before Start: 12-27-2023 End: 12-27-2023 Patient encounter procedure 12/27/2023 11:15 AM EDT Office Visit [facility] [address] [facility] [place] [address] [facility] Comment on above: LAb Start: 12-13-2023 End: 12-13-2023 Specialty Pharmacy 12/13/2023 10:00 AM EDT Specialty Pharmacy [id number] [place] [address] Pharmacist, [facility] [address] [place] [address] [place] [address] refill - benlysta- NCA - pa exp: 02/04/24- [facility] Comment on above: refill - benlysta- NCA - pa exp: 02/04/24- Start: 12-10-2023 End: 12-10-2023 Follow-up encounter 12/10/2023 10:45 AM EDT Visit (SP) Office Hematology/Oncology [address] [facility] [place] [address] Vera Najera MD [address] [facility] [place] [address] 13 week follow up, labs 1 week before Hematology/Oncology Comment on above: 13 week follow up, labs 1 week before Start: 12-04-2023 End: 09-03-2024 25-hydroxyvitamin D3 [Mass/volume] in Serum or Plasma VITAMIN D 25 HYDROXY Lab Routine Vitamin D deficiency Expected: 12/04/2023 (Approximate), Expires: 09/03/2024 [facility] Work Phone: Comment on above: Expected: 12/04/2023 (Approximate), Expi res: 09/03/2024 Start: 12-04-2023 End: 09-03-2024 C reactive protein [Mass/volume] in Serum or Plasma C-REACTIVE PROTEIN Lab Routine Elevated sed rate Elevated C-reactive protein (CRP) Expected: 12/04/2023 (Approximate), Expires: 09/03/2024 [facility] Work Phone: Comment on above: Expected: 12/04/2023 (Approximate), Expi res: 09/03/2024 Start: 12-04-2023 End: 09-03-2024 CBC panel - Blood by Automated count COMPLETE BLOOD COUNT Lab Routine Anemia of chronic disease Expected: 12/04/2023 (Approximate), Expires: 09/03/2024 [facility] Work Phone: Comment on above: Expected: 12/04/2023 (Approximate), Expi res: 09/03/2024 Start: 12-04-2023 End: 09-03-2024 Comprehensive metabolic 2000 panel - Serum or Plasma COMPREHENSIVE METABOLIC PANEL Lab Routine Elevated LFTs Expected: 12/04/2023 (Approximate), Expires: 09/03/2024 [facility] Work Phone: Comment on above: Expected: 12/04/2023 (Approximate), Expi res: 09/03/2024 Start: 12-04-2023 End: 09-03-2024 Erythrocyte sedimentation rate SEDIMENTATION RATE, WESTERGREN Lab Routine Elevated sed rate Elevated C-reactive protein (CRP) Expected: 12/04/2023 (Approximate), Expires: 09/03/2024 [facility] Work Phone: Comment on above: Expected: 12/04/2023 (Approximate), Expi res: 09/03/2024 Start: 12-03-2023 End: 12-03-2023 Nursing evaluation of patient and report 12/03/2023 11:00 AM EDT Nurse Visit Hematology/Oncology [address] [facility] [place] [address] Cele Marshall Nurse Dre [address] [facility] [place] [address] b12 Hematology/Oncology Comment on above: b12 Start: 12-03-2023 End: 12-03-2023 Patient encounter procedure 12/03/2023 10:45 AM EDT Office Visit [facility] [address] [place] [address] [place] [address] [facility] Comment on above: lab Start: 12-02-2023 End: 09-08-2024 CBC W Auto Differential panel - Blood COMPLETE BLOOD COUNT AND DIFFERENTIAL Lab Routine Megaloblastic anemia due to vitamin B12 deficiency High total serum IgM Expected: 12/02/2023 (Approximate), Expires: 09/08/2024 [facility] Work Phone: Comment on above: Expected: 12/02/2023 (Approximate), Expi res: 09/08/2024 Start: 12-02-2023 End: 09-08-2024 Cobalamin (Vitamin B12) [Mass/volume] in Serum or Plasma VITAMIN B12 Lab Routine Megaloblastic anemia due to vitamin B12 deficiency High total serum IgM Expected: 12/02/2023 (Approximate), Expires: 09/08/2024 [facility] Work Phone: Comment on above: Expected: 12/02/2023 (Approximate), Expi res: 09/08/2024 Start: 12-02-2023 End: 09-08-2024 Comprehensive metabolic 2000 panel - Serum or Plasma COMPREHENSIVE METABOLIC PANEL Lab Routine Megaloblastic anemia due to vitamin B12 deficiency High total serum IgM Expected: 12/02/2023 (Approximate), Expires: 09/08/2024 [facility] Work Phone: Comment on above: Expected: 12/02/2023 (Approximate), Expi res: 09/08/2024 Start: 12-02-2023 End: 03-02-2024 Erythrocyte sedimentation rate SEDIMENTATION RATE, WESTERGREN Lab Routine Megaloblastic anemia due to vitamin B12 deficiency High total serum IgM Expected: 12/02/2023 (Approximate), Expires: 03/02/2024 [facility] Work Phone: Comment on above: Expected: 12/02/2023 (Approximate), Expi res: 03/02/2024 Start: 12-02-2023 End: 09-08-2024 Ferritin [Mass/volume] in Serum or Plasma FERRITIN Lab Routine Megaloblastic anemia due to vitamin B12 deficiency High total serum IgM Expected: 12/02/2023 (Approximate), Expires: 09/08/2024 [facility] Work Phone: Comment on above: Expected: 12/02/2023 (Approximate), Expi res: 09/08/2024 Start: 12-02-2023 End: 09-08-2024 Folate [Mass/volume] in Serum or Plasma FOLATE, SERUM Lab Routine Megaloblastic anemia due to vitamin B12 deficiency High total serum IgM Expected: 12/02/2023 (Approximate), Expires: 09/08/2024 [facility] Work Phone: Comment on above: Expected: 12/02/2023 (Approximate), Expi res: 09/08/2024 Start: 12-02-2023 End: 03-02-2024 IgA [Mass/volume] in Serum or Plasma IMMUNOGLOBULIN A Lab Routine Megaloblastic anemia due to vitamin B12 deficiency High total serum IgM Expected: 12/02/2023 (Approximate), Expires: 03/02/2024 [facility] Work Phone: Comment on above: Expected: 12/02/2023 (Approximate), Expi res: 03/02/2024 Start: 12-02-2023 End: 03-02-2024 IgE [Units/volume] in Serum or Plasma IMMUNOGLOBULIN E Lab Routine Megaloblastic anemia due to vitamin B12 deficiency High total serum IgM Expected: 12/02/2023 (Approximate), Expires: 03/02/2024 [facility] Work Phone: Comment on above: Expected: 12/02/2023 (Approximate), Expi res: 03/02/2024 Start: 12-02-2023 End: 03-02-2024 IgG [Mass/volume] in Serum or Plasma IMMUNOGLOBULIN G Lab Routine Megaloblastic anemia due to vitamin B12 deficiency High total serum IgM Expected: 12/02/2023 (Approximate), Expires: 03/02/2024 [facility] Work Phone: Comment on above: Expected: 12/02/2023 (Approximate), Expi res: 03/02/2024 Start: 12-02-2023 End: 03-02-2024 IgM [Mass/volume] in Serum or Plasma IMMUNOGLOBULIN M Lab Routine Megaloblastic anemia due to vitamin B12 deficiency High total serum IgM Expected: 12/02/2023 (Approximate), Expires: 03/02/2024 [facility] Work Phone: Comment on above: Expected: 12/02/2023 (Approximate), Expi res: 03/02/2024 Start: 12-02-2023 End: 09-08-2024 Iron and Iron binding capacity panel - Serum or Plasma IRON AND TIBC Lab Routine Megaloblastic anemia due to vitamin B12 deficiency High total serum IgM Expected: 12/02/2023 (Approximate), Expires: 09/08/2024 [facility] Work Phone: Comment on above: Expected: 12/02/2023 (Approximate), Expi res: 09/08/2024 Start: 11-29-2023 End: 11-29-2023 Nursing evaluation of patient and report 11/29/2023 2:15 PM EDT Nurse Visit Hematology/Oncology [address] [facility] [place] [address] Cele Marshall Nurse Dre [address] [facility] [place] [address] b12 Hematology/Oncology Comment on above: b12 Start: 11-15-2023 End: 11-15-2023 Specialty Pharmacy 11/15/2023 10:00 AM EDT Specialty Pharmacy [facility] [address] [place] [address] [id number] [place] [address] Pharmacist, [facility] [address] [place] [address] [place] [address] refill - benlysta- NCA 09/2024-- pa exp: 02/04/24- [facility] Comment on above: refill - benlysta- NCA 09/2024-- pa exp: 02/04/24- Start: 10-29-2023 End: 10-29-2023 Nursing evaluation of patient and report 10/29/2023 11:00 AM EDT Nurse Visit Hematology/Oncology [address] [facility] [place] [address] Cele Marshall Nurse Dre [address] [facility] [place] [address] b12 Hematology/Oncology Comment on above: b12 Start: 10-15-2023 End: 10-15-2023 Specialty Pharmacy 10/15/2023 10:00 AM EDT Specialty Pharmacy [facility] [address] [place] [address] Pharmacist, [facility] [address] [place] [address] [address] [place] [id number] refill - benlysta-Thursdays- pa exp: 02/04/24-l/m 10/11 [facility] Comment on above: refill - benlysta-Thursdays- pa exp: 01/22 08/14-l/m 10/11 Start: 10-12-2023 End: 10-12-2023 Specialty Pharmacy 10/12/2023 10:00 AM EDT Specialty Pharmacy [facility] [address] [place], [place] [id number] Pharmacist, [facility] [address] [place] [address] [place] [address] refill - benlysta-Thursdays- pa exp: 02/04/24- [facility] Comment on above: refill - benlysta-Thursdays- pa exp: 01/22 08/14- Start: 10-05-2023 End: 10-05-2023 Patient encounter procedure 10/05/2023 8:00 AM EDT [facility] Rheumatology [address] [place] [address] Lynne Ni MD [address] [place] [address] 6 mo f/u for Lupus Rheumatology Comment on above: 6 mo f/u for Lupus Start: 10-01-2023 End: 10-01-2023 Nursing evaluation of patient and report 10/01/2023 11:00 AM EDT Nurse Visit Hematology/Oncology [address] [facility] [place] [address] Cele Marshall Nurse Dre [address] [facility] [place] [address] b12 Hematology/Oncology Comment on above: b12 Start: 09-16-2023 End: 09-16-2023 Specialty Pharmacy 09/16/2023 10:00 AM EDT Specialty Pharmacy [facility] [id number] [place] [address] Pharmacist, [facility] [address] [place] [address] [place], [place] [id number] refill - benlysta-Thursdays- pa exp: 02/04/24-lvm [facility] Comment on above: refill - benlysta-Thursdays- pa exp: 01/22 08/14-lvm Start: 09-13-2023 End: 09-13-2023 Patient encounter procedure 09/13/2023 9:00 AM EDT Office Visit [facility] [address] [place] [address] Kade Richardson MD [address] [facility] [address] [address] [facility] Start: 07-19-2023 End: 07-19-2023 Patient encounter procedure [facility] Start: 07-15-2023 End: 07-15-2023 Patient encounter procedure 07/15/2023 10:50 AM EST Office Visit [facility] [address] [place] [address] Bernabe English MD [address] [place] [address] [facility] Start: 07-06-2023 End: 07-06-2023 Patient encounter procedure 07/06/2023 2:30 PM EST Office Visit [facility] [address] [facility] [place] [id number] Kade Richardson MD [address] [facility] [address] [address] [facility] 210 Start: 07-06-2023 End: 07-06-2024 Protein electrophoresis, serum Protein electrophoresis, serum Lab Routine Autoimmune disease (CMS/HCC) Autonomic dysfunction Expected: 07/06/2023 (Approximate), Expires: 07/06/2024 [facility] Work Phone: Comment on above: Expected: 07/06/2023 (Approximate), Expi res: 07/06/2024 Start: 07-06-2023 End: 07-06-2024 Protein electrophoresis, urine Protein electrophoresis, urine Lab Routine Autoimmune disease (CMS/HCC) Autonomic dysfunction Expected: 07/06/2023 (Approximate), Expires: 07/06/2024 [facility] Comment on above: Expected: 07/06/2023 (Approximate), Expi res: 07/06/2024 Start: 06-09-2023 End: 06-09-2024 Holter monitor study Holter Or Event [facility] Routine Irregular heart rate Expected: 06/09/2023 (Approximate), Expires: 06/09/[address] [facility] Work Phone: Comment on above: Expected: 06/09/2023 (Approximate), Expi res: 06/09/2024 Start: 06-09-2023 End: 06-09-2024 Lipid 1996 panel - Serum or Plasma Lipid Panel Lab Routine Primary hypertension Expected: 06/09/2023 (Approximate), Expires: 06/09/[address] [facility] Work Phone: Comment on above: Expected: 06/09/2023 (Approximate), Expi res: 06/09/2024 Start: 06-09-2023 End: 06-09-2024 Thyrotropin [Units/volume] in Serum or Plasma Thyroid Stimulating Hormone Lab Routine Irregular heart rate Expected: 06/09/2023 (Approximate), Expires: 06/09/[address] [facility] Work Phone: Comment on above: Expected: 06/09/2023 (Approximate), Expi res: 06/09/2024 Start: 06-09-2023 End: 06-09-2024 Thyroxine (T4) free [Mass/volume] in Serum or Plasma Thyroxine, Free Lab Routine Irregular heart rate Expected: 06/09/2023 (Approximate), Expires: 06/09/[address] [facility] Work Phone: Comment on above: Expected: 06/09/2023 (Approximate), Expi res: 06/09/2024 Start: 06-09-2023 End: 06-09-2025 Heart Transthoracic Transthoracic Echo (TTE) Complete Echocardiography Routine Irregular heart rate Obstructive sleep apnea syndrome Expected: 06/09/2023 (Approximate), Expires: 06/09/2025 [facility] Work Phone: Comment on above: Expected: 06/09/2023 (Approximate), Expi res: 06/09/2025 Start: 04-25-2023 End: 01-25-2024 25-hydroxyvitamin D3 [Mass/volume] in Serum or Plasma VITAMIN D 25 HYDROXY Lab Routine Vitamin D deficiency Expected: 04/25/2023 (Approximate), Expires: 01/25/2024 [facility] Work Phone: Comment on above: Expected: 04/25/2023 (Approximate), Expi res: 01/25/2024 Start: 04-25-2023 End: 01-25-2024 C reactive protein [Mass/volume] in Serum or Plasma C-REACTIVE PROTEIN (CRP) Lab Routine Elevated sed rate Elevated C-reactive protein (CRP) Expected: 04/25/2023 (Approximate), Expires: 01/25/2024 [facility] Work Phone: Comment on above: Expected: 04/25/2023 (Approximate), Expi res: 01/25/2024 Start: 04-25-2023 End: 01-25-2024 CBC panel - Blood by Automated count CBC Lab Routine Anemia of chronic disease Expected: 04/25/2023 (Approximate), Expires: 01/25/2024 [facility] Work Phone: Comment on above: Expected: 04/25/2023 (Approximate), Expi res: 01/25/2024 Start: 04-25-2023 End: 01-25-2024 Comprehensive metabolic 2000 panel - Serum or Plasma COMP METABOLIC PANEL Lab Routine Elevated LFTs Expected: 04/25/2023 (Approximate), Expires: 01/25/2024 [facility] Work Phone: Comment on above: Expected: 04/25/2023 (Approximate), Expi res: 01/25/2024 Start: 04-25-2023 End: 01-25-2024 Erythrocyte sedimentation rate SED RATE WESTERGREN Lab Routine Elevated sed rate Elevated C-reactive protein (CRP) Expected: 04/25/2023 (Approximate), Expires: 01/25/2024 [facility] Work Phone: Comment on above: Expected: 04/25/2023 (Approximate), Expi res: 01/25/2024 Start: 04-20-2023 COVID-19 Vaccine (4 - Pfizer risk series) COVID-19 Vaccine (4 - Pfizer risk series) [facility] Start: 04-20-2023 Covid-19 Vaccine ( season) Covid-19 Vaccine () [facility] Start: 04-20-2023 Covid-19 Vaccine ( season) Covid-19 Vaccine ( season) [facility] Start: 04-16-2023 End: 02-20-2024 CBC W Auto Differential panel - Blood CBC + DIFF Lab Routine Megaloblastic anemia due to vitamin B12 deficiency Elevated sed rate Chronic fatigue and malaise High total serum IgM JOSE RAFAEL (obstructive sleep apnea) Expected: 04/16/2023 (Approximate), Expires: 02/20/2024 [facility] Work Phone: Comment on above: Expected: 04/16/2023 (Approximate), Expi res: 02/20/2024 Start: 04-16-2023 End: 02-20-2024 Cobalamin (Vitamin B12) [Mass/volume] in Serum or Plasma VITAMIN B12 BLOOD Lab Routine Megaloblastic anemia due to vitamin B12 deficiency Elevated sed rate Chronic fatigue and malaise High total serum IgM JOSE RAFAEL (obstructive sleep apnea) Expected: 04/16/2023 (Approximate), Expires: 02/20/2024 [facility] Work Phone: Comment on above: Expected: 04/16/2023 (Approximate), Expi res: 02/20/2024 Start: 04-16-2023 End: 02-20-2024 Comprehensive metabolic 2000 panel - Serum or Plasma COMP METABOLIC PANEL Lab Routine Megaloblastic anemia due to vitamin B12 deficiency Elevated sed rate Chronic fatigue and malaise High total serum IgM JOSE RAFAEL (obstructive sleep apnea) Expected: 04/16/2023 (Approximate), Expires: 02/20/2024 [facility] Work Phone: Comment on above: Expected: 04/16/2023 (Approximate), Expi res: 02/20/2024 Start: 04-16-2023 End: 02-20-2024 Ferritin [Mass/volume] in Serum or Plasma FERRITIN BLD Lab Routine Megaloblastic anemia due to vitamin B12 deficiency Elevated sed rate Chronic fatigue and malaise High total serum IgM JOSE RAFAEL (obstructive sleep apnea) Expected: 04/16/2023 (Approximate), Expires: 02/20/2024 [facility] Work Phone: Comment on above: Expected: 04/16/2023 (Approximate), Expi res: 02/20/2024 Start: 04-16-2023 End: 02-20-2024 Folate [Mass/volume] in Serum or Plasma FOLATE SERUM Lab Routine Megaloblastic anemia due to vitamin B12 deficiency Elevated sed rate Chronic fatigue and malaise High total serum IgM JOSE RAFAEL (obstructive sleep apnea) Expected: 04/16/2023 (Approximate), Expires: 02/20/2024 [facility] Work Phone: Comment on above: Expected: 04/16/2023 (Approximate), Expi res: 02/20/2024 Start: 04-16-2023 End: 02-20-2024 Iron and Iron binding capacity panel - Serum or Plasma IRON + TIBC Lab Routine Megaloblastic anemia due to vitamin B12 deficiency Elevated sed rate Chronic fatigue and malaise High total serum IgM JOSE RAFAEL (obstructive sleep apnea) Expected: 04/16/2023 (Approximate), Expires: 02/20/2024 [facility] Work Phone: Comment on above: Expected: 04/16/2023 (Approximate), Expi res: 02/20/2024 Start: 03-23-2023 COVID-19 Vaccine (3 - Pfizer risk series) COVID-19 Vaccine (3 - Pfizer risk series) [facility] Start: 03-17-2023 Diabetes mellitus screening Diabetes Screening [facility] Start: 03-10-2023 End: 06-09-2023 Insulin [Units/volume] in Serum or Plasma INSULIN ASSAY BLOOD Lab Routine Insulin resistance, unspecified Expected: 03/10/2023, Expires: 06/09/2023 [facility] Work Phone: Comment on above: Expected: 03/10/2023, Expires: Start: 03-10-2023 End: 06-09-2023 INSULIN ANTIBODY BLD INSULIN ANTIBODY BLD Lab Routine Insulin resistance, unspecified Expected: 03/10/2023, Expires: 06/09/2023 [facility] Phone: Comment on above: Expected: 03/10/2023, Expires: 4 Start: 02-11-2023 End: 02-08-2024 [id number] [Mass/volume] in Serum or Plasma B2 MICROGLOBULIN B Lab Routine Megaloblastic anemia due to vitamin B12 deficiency High total serum IgM Elevated sed rate Expected: 02/11/2023 (Approximate), Expires: 02/08/2024 [facility] Work Phone: Comment on above: Expected: 02/11/2023 (Approximate), Expi res: 02/08/2024 Start: 02-11-2023 End: 02-08-2024 Calcium.ionized [Moles/volume] in Blood CALCIUM IONIZED BLOOD Lab Routine Megaloblastic anemia due to vitamin B12 deficiency High total serum IgM Elevated sed rate Expected: 02/11/2023 (Approximate), Expires: 02/08/2024 [facility] Work Phone: Comment on above: Expected: 02/11/2023 (Approximate), Expi res: 02/08/2024 Start: 02-11-2023 End: 02-08-2024 CBC W Auto Differential panel - Blood CBC + DIFF Lab Routine Megaloblastic anemia due to vitamin B12 deficiency High total serum IgM Elevated sed rate Expected: 02/11/2023 (Approximate), Expires: 02/08/2024 [facility] Work Phone: Comment on above: Expected: 02/11/2023 (Approximate), Expi res: 02/08/2024 Start: 02-11-2023 End: 02-08-2024 Cobalamin (Vitamin B12) [Mass/volume] in Serum or Plasma VITAMIN B12 BLOOD Lab Routine Megaloblastic anemia due to vitamin B12 deficiency High total serum IgM Elevated sed rate Expected: 02/11/2023 (Approximate), Expires: 02/08/2024 [facility] Work Phone: Comment on above: Expected: 02/11/2023 (Approximate), Expi res: 02/08/2024 Start: 02-11-2023 End: 02-08-2024 Comprehensive metabolic 2000 panel - Serum or Plasma COMP METABOLIC PANEL Lab Routine Megaloblastic anemia due to vitamin B12 deficiency High total serum IgM Elevated sed rate Expected: 02/11/2023 (Approximate), Expires: 02/08/2024 [facility] Work Phone: Comment on above: Expected: 02/11/2023 (Approximate), Expi res: 02/08/2024 Start: 02-11-2023 End: 02-08-2024 Ferritin [Mass/volume] in Serum or Plasma FERRITIN BLD Lab Routine Megaloblastic anemia due to vitamin B12 deficiency High total serum IgM Elevated sed rate Expected: 02/11/2023 (Approximate), Expires: 02/08/2024 [facility] Work Phone: Comment on above: Expected: 02/11/2023 (Approximate), Expi res: 02/08/2024 Start: 02-11-2023 End: 02-08-2024 Folate [Mass/volume] in Serum or Plasma FOLATE SERUM Lab Routine Megaloblastic anemia due to vitamin B12 deficiency High total serum IgM Elevated sed rate Expected: 02/11/2023 (Approximate), Expires: 02/08/2024 [facility] Work Phone: Comment on above: Expected: 02/11/2023 (Approximate), Expi res: 02/08/2024 Start: 02-11-2023 End: 02-08-2024 Iron and Iron binding capacity panel - Serum or Plasma IRON + TIBC Lab Routine Megaloblastic anemia due to vitamin B12 deficiency High total serum IgM Elevated sed rate Expected: 02/11/2023 (Approximate), Expires: 02/08/2024 [facility] Work Phone: Comment on above: Expected: 02/11/2023 (Approximate), Expi res: 02/08/2024 Start: 02-11-2023 End: 04-13-2023 KAPPA/FARMER,FREE,SER KAPPA/FARMER,FREE,SER Lab Routine Megaloblastic anemia due to vitamin B12 deficiency High total serum IgM Elevated sed rate Expected: 02/11/2023 (Approximate), Expires: 04/13/2023 [facility] Work Phone: Comment on above: Expected: 02/11/2023 (Approximate), Expi res: 04/13/2023 Start: 02-11-2023 End: 02-08-2024 Lactate dehydrogenase [Enzymatic activity/volume] in Serum or Plasma LD LACTATE DEHYDRO Lab Routine Megaloblastic anemia due to vitamin B12 deficiency High total serum IgM Elevated sed rate Expected: 02/11/2023 (Approximate), Expires: 02/08/2024 [facility] Work Phone: Comment on above: Expected: 02/11/2023 (Approximate), Expi res: 02/08/2024 Start: 02-11-2023 End: 02-08-2024 MONOCLONAL PROTEIN, SERUM (BLOOD) MONOCLONAL PROTEIN, SERUM (BLOOD) Lab Routine Megaloblastic anemia due to vitamin B12 deficiency High total serum IgM Elevated sed rate Expected: 02/11/2023 (Approximate), Expires: 02/08/2024 [facility] Work Phone: Comment on above: Expected: 02/11/2023 (Approximate), Expi res: 02/08/2024 Start: 02-11-2023 End: 02-08-2024 Phosphate [Mass/volume] in Serum or Plasma PHOSPHORUS INORGANIC Lab Routine Megaloblastic anemia due to vitamin B12 deficiency High total serum IgM Elevated sed rate Expected: 02/11/2023 (Approximate), Expires: 02/08/2024 [facility] Work Phone: Comment on above: Expected: 02/11/2023 (Approximate), Expi res: 02/08/2024 Start: 02-11-2023 End: 02-08-2024 PROTEIN ELECTROPHORESIS SERUM W/INTERP PROTEIN ELECTROPHORESIS SERUM W/INTERP Lab Routine Megaloblastic anemia due to vitamin B12 deficiency High total serum IgM Elevated sed rate Expected: 02/11/2023 (Approximate), Expires: 02/08/2024 [facility] Work Phone: Comment on above: Expected: 02/11/2023 (Approximate), Expi res: 02/08/2024 Start: 02-11-2023 End: 02-08-2024 Urate [Mass/volume] in Serum or Plasma URIC ACID BLOOD Lab Routine Megaloblastic anemia due to vitamin B12 deficiency High total serum IgM Elevated sed rate Expected: 02/11/2023 (Approximate), Expires: 02/08/2024 [facility] Work Phone: Comment on above: Expected: 02/11/2023 (Approximate), Expi res: 02/08/2024 Start: 01-22-2023 Influenza vaccination [facility] Start: 12-17-2022 End: 10-23-2023 CBC W Auto Differential panel - Blood CBC + DIFF Lab Routine Megaloblastic anemia due to vitamin B12 deficiency Expected: 12/17/2022 (Approximate), Expires: 10/23/2023 [facility] Work Phone: Comment on above: Expected: 12/17/2022 (Approximate), Expi res: 10/23/2023 Start: 12-17-2022 End: 10-23-2023 Cobalamin (Vitamin B12) [Mass/volume] in Serum or Plasma VITAMIN B12 BLOOD Lab Routine Megaloblastic anemia due to vitamin B12 deficiency Expected: 12/17/2022 (Approximate), Expires: 10/23/2023 [facility] Work Phone: Comment on above: Expected: 12/17/2022 (Approximate), Expi res: 10/23/2023 Start: 12-17-2022 End: 10-23-2023 Comprehensive metabolic 2000 panel - Serum or Plasma COMP METABOLIC PANEL Lab Routine Megaloblastic anemia due to vitamin B12 deficiency Expected: 12/17/2022 (Approximate), Expires: 10/23/2023 [facility] Work Phone: Comment on above: Expected: 12/17/2022 (Approximate), Expi res: 10/23/2023 Start: 12-17-2022 End: 10-23-2023 Ferritin [Mass/volume] in Serum or Plasma FERRITIN BLD Lab Routine Megaloblastic anemia due to vitamin B12 deficiency Expected: 12/17/2022 (Approximate), Expires: 10/23/2023 [facility] Work Phone: Comment on above: Expected: 12/17/2022 (Approximate), Expi res: 10/23/2023 Start: 12-17-2022 End: 10-23-2023 Folate [Mass/volume] in Serum or Plasma FOLATE SERUM Lab Routine Megaloblastic anemia due to vitamin B12 deficiency Expected: 12/17/2022 (Approximate), Expires: 10/23/2023 [facility] Work Phone: Comment on above: Expected: 12/17/2022 (Approximate), Expi res: 10/23/2023 Start: 12-17-2022 End: 10-23-2023 Iron and Iron binding capacity panel - Serum or Plasma IRON + TIBC Lab Routine Megaloblastic anemia due to vitamin B12 deficiency Expected: 12/17/2022 (Approximate), Expires: 10/23/2023 [facility] Work Phone: Comment on above: Expected: 12/17/2022 (Approximate), Expi res: 10/23/2023 Start: 10-23-2022 End: 12-23-2022 25-hydroxyvitamin D3 [Mass/volume] in Serum or Plasma VITAMIN D 25 HYDROXY Lab Routine Megaloblastic anemia due to vitamin B12 deficiency Elevated sed rate High total serum IgM Chronic fatigue and malaise JOSE RAFAEL (obstructive sleep apnea) Expected: 10/23/2022, Expires: 12/23/2022 [facility] Work Phone: Comment on above: Expected: 10/23/2022, Expires: 3 Start: 10-23-2022 End: 12-23-2022 C reactive protein [Mass/volume] in Serum or Plasma C-REACTIVE PROTEIN (CRP) Lab Routine Megaloblastic anemia due to vitamin B12 deficiency Elevated sed rate High total serum IgM Chronic fatigue and malaise JOSE RAFAEL (obstructive sleep apnea) Expected: 10/23/2022, Expires: 12/23/2022 [facility] Work Phone: Comment on above: Expected: 10/23/2022, Expires: 3 Start: 10-23-2022 End: 12-23-2022 CBC W Auto Differential panel - Blood CBC + DIFF Lab Routine Megaloblastic anemia due to vitamin B12 deficiency Elevated sed rate High total serum IgM Chronic fatigue and malaise JOSE RAFAEL (obstructive sleep apnea) Expected: 10/23/2022, Expires: 12/23/2022 [facility] Work Phone: Comment on above: Expected: 10/23/2022, Expires: 3 Start: 10-23-2022 End: 12-23-2022 Cobalamin (Vitamin B12) [Mass/volume] in Serum or Plasma VITAMIN B12 BLOOD Lab Routine Megaloblastic anemia due to vitamin B12 deficiency Elevated sed rate High total serum IgM Chronic fatigue and malaise JOSE RAFAEL (obstructive sleep apnea) Expected: 10/23/2022, Expires: 12/23/2022 [facility] Work Phone: Comment on above: Expected: 10/23/2022, Expires: 3 Start: 10-23-2022 End: 12-23-2022 Comprehensive metabolic 2000 panel - Serum or Plasma COMP METABOLIC PANEL Lab Routine Megaloblastic anemia due to vitamin B12 deficiency Elevated sed rate High total serum IgM Chronic fatigue and malaise JOSE RAFAEL (obstructive sleep apnea) Expected: 10/23/2022, Expires: 12/23/2022 [facility] Work Phone: Comment on above: Expected: 10/23/2022, Expires: 3 Start: 10-23-2022 End: 12-23-2022 Erythrocyte sedimentation rate SED RATE WESTERGREN Lab Routine Megaloblastic anemia due to vitamin B12 deficiency Elevated sed rate High total serum IgM Chronic fatigue and malaise JOSE RAFAEL (obstructive sleep apnea) Expected: 10/23/2022, Expires: 12/23/2022 [facility] Work Phone: Comment on above: Expected: 10/23/2022, Expires: 3 Start: 10-23-2022 End: 12-23-2022 Lactate dehydrogenase [Enzymatic activity/volume] in Serum or Plasma LD LACTATE DEHYDRO Lab Routine Megaloblastic anemia due to vitamin B12 deficiency Elevated sed rate High total serum IgM Chronic fatigue and malaise JOSE RAFAEL (obstructive sleep apnea) Expected: 10/23/2022, Expires: 12/23/2022 [facility] Work Phone: Comment on above: Expected: 10/23/2022, Expires: 3 Start: 10-23-2022 End: 12-23-2022 MONOCLONAL PROTEIN, SERUM (BLOOD) MONOCLONAL PROTEIN, SERUM (BLOOD) Lab Routine Megaloblastic anemia due to vitamin B12 deficiency Elevated sed rate High total serum IgM Chronic fatigue and malaise JOSE RAFAEL (obstructive sleep apnea) Expected: 10/23/2022, Expires: 12/23/2022 [facility] Work Phone: Comment on above: Expected: 10/23/2022, Expires: 3 Start: 10-23-2022 End: 12-23-2022 PROT ELECT SERUM WITH DANA AND INTERP PROT ELECT SERUM WITH DANA AND INTERP Lab Routine Megaloblastic anemia due to vitamin B12 deficiency Elevated sed rate High total serum IgM Chronic fatigue and malaise JOSE RAFAEL (obstructive sleep apnea) Expected: 10/23/2022, Expires: 12/23/2022 [facility] Work Phone: Comment on above: Expected: 10/23/2022, Expires: Start: 09-19-2022 End: 08-20-2023 CBC panel - Blood by Automated count CBC Lab Routine Anemia of chronic disease Expected: 09/19/2022 (Approximate), Expires: 08/20/2023 [facility] Work Phone: Comment on above: Expected: 09/19/2022 (Approximate), Expi res: 08/20/2023 Start: 09-19-2022 End: 08-20-2023 Comprehensive metabolic 2000 panel - Serum or Plasma COMP METABOLIC PANEL Lab Routine Elevated LFTs Expected: 09/19/2022 (Approximate), Expires: 08/20/2023 [facility] Work Phone: Comment on above: Expected: 09/19/2022 (Approximate), Expi res: 08/20/2023 Start: 09-19-2022 End: 11-19-2022 TPMT PHENOTYPE/ENZYME ACTIVITY TPMT PHENOTYPE/ENZYME ACTIVITY Lab Routine Encounter for 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 Expected: 09/19/2022 (Approximate), Expires: 11/19/2022 [facility] Work Phone: Comment on above: Expected: 09/19/2022 (Approximate), Expi res: 11/19/2022 Start: 08-28-2022 End: 10-28-2022 25-hydroxyvitamin D3 [Mass/volume] in Serum or Plasma VITAMIN D 25 HYDROXY Lab Routine Megaloblastic anemia due to vitamin B12 deficiency Elevated sed rate High total serum IgM Chronic fatigue and malaise Expected: 08/28/2022 (Approximate), Expires: 10/28/2022 [facility] Work Phone: Comment on above: Expected: 08/28/2022 (Approximate), Expi res: 10/28/2022 Start: 08-28-2022 End: 07-26-2023 [id number] [Mass/volume] in Serum or Plasma B2 MICROGLOBULIN B Lab Routine Megaloblastic anemia due to vitamin B12 deficiency Elevated sed rate High total serum IgM Chronic fatigue and malaise Expected: 08/28/2022 (Approximate), Expires: 07/26/2023 [facility] Work Phone: Comment on above: Expected: 08/28/2022 (Approximate), Expi res: 07/26/2023 Start: 08-28-2022 End: 10-28-2022 C reactive protein [Mass/volume] in Serum or Plasma C-REACTIVE PROTEIN (CRP) Lab Routine Megaloblastic anemia due to vitamin B12 deficiency Elevated sed rate High total serum IgM Chronic fatigue and malaise Expected: 08/28/2022 (Approximate), Expires: 10/28/2022 [facility] Work Phone: Comment on above: Expected: 08/28/2022 (Approximate), Expi res: 10/28/2022 Start: 08-28-2022 End: 07-26-2023 Calcium.ionized [Moles/volume] in Blood CALCIUM IONIZED BLOOD Lab Routine Megaloblastic anemia due to vitamin B12 deficiency Elevated sed rate High total serum IgM Chronic fatigue and malaise Expected: 08/28/2022 (Approximate), Expires: 07/26/2023 [facility] Work Phone: Comment on above: Expected: 08/28/2022 (Approximate), Expi res: 07/26/2023 Start: 08-28-2022 End: 07-26-2023 CBC W Auto Differential panel - Blood CBC + DIFF Lab Routine Megaloblastic anemia due to vitamin B12 deficiency Elevated sed rate High total serum IgM Chronic fatigue and malaise Expected: 08/28/2022 (Approximate), Expires: 07/26/2023 [facility] Work Phone: Comment on above: Expected: 08/28/2022 (Approximate), Expi res: 07/26/2023 Start: 08-28-2022 End: 10-28-2022 Cobalamin (Vitamin B12) [Mass/volume] in Serum or Plasma VITAMIN B12 BLOOD Lab Routine Megaloblastic anemia due to vitamin B12 deficiency Elevated sed rate High total serum IgM Chronic fatigue and malaise Expected: 08/28/2022 (Approximate), Expires: 10/28/2022 [facility] Work Phone: Comment on above: Expected: 08/28/2022 (Approximate), Expi res: 10/28/2022 Start: 08-28-2022 End: 07-26-2023 Comprehensive metabolic 2000 panel - Serum or Plasma COMP METABOLIC PANEL Lab Routine Megaloblastic anemia due to vitamin B12 deficiency Elevated sed rate High total serum IgM Chronic fatigue and malaise Expected: 08/28/2022 (Approximate), Expires: 07/26/2023 [facility] Work Phone: Comment on above: Expected: 08/28/2022 (Approximate), Expi res: 07/26/2023 Start: 08-28-2022 End: 10-28-2022 Erythrocyte sedimentation rate SED RATE WESTERGREN Lab Routine Megaloblastic anemia due to vitamin B12 deficiency Elevated sed rate High total serum IgM Chronic fatigue and malaise Expected: 08/28/2022 (Approximate), Expires: 10/28/2022 [facility] Work Phone: Comment on above: Expected: 08/28/2022 (Approximate), Expi res: 10/28/2022 Start: 08-28-2022 End: 10-28-2022 KAPPA/FARMER,FREE,SER KAPPA/FARMER,FREE,SER Lab Routine Megaloblastic anemia due to vitamin B12 deficiency Elevated sed rate High total serum IgM Chronic fatigue and malaise Expected: 08/28/2022 (Approximate), Expires: 10/28/2022 [facility] Work Phone: Comment on above: Expected: 08/28/2022 (Approximate), Expi res: 10/28/2022 Start: 08-28-2022 End: 07-26-2023 Lactate dehydrogenase [Enzymatic activity/volume] in Serum or Plasma LD LACTATE DEHYDRO Lab Routine Megaloblastic anemia due to vitamin B12 deficiency Elevated sed rate High total serum IgM Chronic fatigue and malaise Expected: 08/28/2022 (Approximate), Expires: 07/26/2023 [facility] Work Phone: Comment on above: Expected: 08/28/2022 (Approximate), Expi res: 07/26/2023 Start: 08-28-2022 End: 07-26-2023 MONOCLONAL PROTEIN, SERUM (BLOOD) MONOCLONAL PROTEIN, SERUM (BLOOD) Lab Routine Megaloblastic anemia due to vitamin B12 deficiency Elevated sed rate High total serum IgM Chronic fatigue and malaise Expected: 08/28/2022 (Approximate), Expires: 07/26/2023 [facility] Work Phone: Comment on above: Expected: 08/28/2022 (Approximate), Expi res: 07/26/2023 Start: 08-28-2022 End: 07-26-2023 Phosphate [Mass/volume] in Serum or Plasma PHOSPHORUS INORGANIC Lab Routine Megaloblastic anemia due to vitamin B12 deficiency Elevated sed rate High total serum IgM Chronic fatigue and malaise Expected: 08/28/2022 (Approximate), Expires: 07/26/2023 [facility] Work Phone: Comment on above: Expected: 08/28/2022 (Approximate), Expi res: 07/26/2023 Start: 08-28-2022 End: 07-26-2023 PROTEIN ELECTROPHORESIS SERUM W/INTERP PROTEIN ELECTROPHORESIS SERUM W/INTERP Lab Routine Megaloblastic anemia due to vitamin B12 deficiency Elevated sed rate High total serum IgM Chronic fatigue and malaise Expected: 08/28/2022 (Approximate), Expires: 07/26/2023 [facility] Work Phone: Comment on above: Expected: 08/28/2022 (Approximate), Expi res: 07/26/2023 Start: 08-28-2022 End: 07-26-2023 Urate [Mass/volume] in Serum or Plasma URIC ACID BLOOD Lab Routine Megaloblastic anemia due to vitamin B12 deficiency Elevated sed rate High total serum IgM Chronic fatigue and malaise Expected: 08/28/2022 (Approximate), Expires: 07/26/2023 [facility] Work Phone: Comment on above: Expected: 08/28/2022 (Approximate), Expi res: 07/26/2023 Start: 07-15-2022 End: 05-20-2023 [id number] [Mass/volume] in Serum or Plasma B2 MICROGLOBULIN B Lab Routine High total serum IgM Expected: 07/15/2022 (Approximate), Expires: 05/20/2023 [facility] Work Phone: Comment on above: Expected: 07/15/2022 (Approximate), Expi res: 05/20/2023 Start: 07-15-2022 End: 05-20-2023 Calcium.ionized [Moles/volume] in Blood CALCIUM IONIZED BLOOD Lab Routine High total serum IgM Expected: 07/15/2022 (Approximate), Expires: 05/20/2023 [facility] Work Phone: Comment on above: Expected: 07/15/2022 (Approximate), Expi res: 05/20/2023 Start: 07-15-2022 End: 05-20-2023 CBC W Auto Differential panel - Blood CBC + DIFF Lab Routine High total serum IgM Expected: 07/15/2022 (Approximate), Expires: 05/20/2023 [facility] Work Phone: Comment on above: Expected: 07/15/2022 (Approximate), Expi res: 05/20/2023 Start: 07-15-2022 End: 05-20-2023 Comprehensive metabolic 2000 panel - Serum or Plasma COMP METABOLIC PANEL Lab Routine High total serum IgM Expected: 07/15/2022 (Approximate), Expires: 05/20/2023 [facility] Work Phone: Comment on above: Expected: 07/15/2022 (Approximate), Expi res: 05/20/2023 Start: 07-15-2022 End: 09-14-2022 KAPPA/FARMER,FREE,SER KAPPA/FARMER,FREE,SER Lab Routine High total serum IgM Expected: 07/15/2022 (Approximate), Expires: 09/14/2022 [facility] Work Phone: Comment on above: Expected: 07/15/2022 (Approximate), Expi res: 09/14/2022 Start: 07-15-2022 End: 05-20-2023 Lactate dehydrogenase [Enzymatic activity/volume] in Serum or Plasma LD LACTATE DEHYDRO Lab Routine High total serum IgM Expected: 07/15/2022 (Approximate), Expires: 05/20/2023 [facility] Work Phone: Comment on above: Expected: 07/15/2022 (Approximate), Expi res: 05/20/2023 Start: 07-15-2022 End: 05-20-2023 MONOCLONAL PROTEIN, SERUM (BLOOD) MONOCLONAL PROTEIN, SERUM (BLOOD) Lab Routine High total serum IgM Expected: 07/15/2022 (Approximate), Expires: 05/20/2023 [facility] Work Phone: Comment on above: Expected: 07/15/2022 (Approximate), Expi res: 05/20/2023 Start: 07-15-2022 End: 05-20-2023 Phosphate [Mass/volume] in Serum or Plasma PHOSPHORUS INORGANIC Lab Routine High total serum IgM Expected: 07/15/2022 (Approximate), Expires: 05/20/2023 [facility] Work Phone: Comment on above: Expected: 07/15/2022 (Approximate), Expi res: 05/20/2023 Start: 07-15-2022 End: 05-20-2023 PROTEIN ELECTROPHORESIS SERUM W/INTERP PROTEIN ELECTROPHORESIS SERUM W/INTERP Lab Routine High total serum IgM Expected: 07/15/2022 (Approximate), Expires: 05/20/2023 [facility] Work Phone: Comment on above: Expected: 07/15/2022 (Approximate), Expi res: 05/20/2023 Start: 07-15-2022 End: 05-20-2023 Urate [Mass/volume] in Serum or Plasma URIC ACID BLOOD Lab Routine High total serum IgM Expected: 07/15/2022 (Approximate), Expires: 05/20/2023 [facility] Work Phone: Comment on above: Expected: 07/15/2022 (Approximate), Expi res: 05/20/2023 Start: 06-05-2022 End: 03-05-2023 25-hydroxyvitamin D3 [Mass/volume] in Serum or Plasma VITAMIN D 25 HYDROXY Lab Routine Vitamin D deficiency Expected: 06/05/2022 (Approximate), Expires: 03/05/2023 [facility] Work Phone: Comment on above: Expected: 06/05/2022 (Approximate), Expi res: 03/05/2023 Start: 06-05-2022 End: 03-05-2023 C reactive protein [Mass/volume] in Serum or Plasma C-REACTIVE PROTEIN (CRP) Lab Routine Elevated sed rate Elevated C-reactive protein (CRP) Expected: 06/05/2022 (Approximate), Expires: 03/05/2023 [facility] Work Phone: Comment on above: Expected: 06/05/2022 (Approximate), Expi res: 03/05/2023 Start: 06-05-2022 End: 03-05-2023 Cobalamin (Vitamin B12) [Mass/volume] in Serum or Plasma VITAMIN B12 BLOOD Lab Routine Vitamin B12 deficiency Expected: 06/05/2022 (Approximate), Expires: 03/05/2023 [facility] Work Phone: Comment on above: Expected: 06/05/2022 (Approximate), Expi res: 03/05/2023 Start: 06-05-2022 End: 03-05-2023 Erythrocyte sedimentation rate SED RATE WESTERGREN Lab Routine Elevated sed rate Elevated C-reactive protein (CRP) Expected: 06/05/2022 (Approximate), Expires: 03/05/2023 [facility] Work Phone: Comment on above: Expected: 06/05/2022 (Approximate), Expi res: 03/05/2023 Start: 05-06-2022 End: 03-18-2023 [id number] [Mass/volume] in Serum or Plasma B2 MICROGLOBULIN B Lab Routine Megaloblastic anemia due to vitamin B12 deficiency High total serum IgM Expected: 05/06/2022 (Approximate), Expires: 03/18/2023 [facility] Work Phone: Comment on above: Expected: 05/06/2022 (Approximate), Expi res: 03/18/2023 Start: 05-06-2022 End: 03-18-2023 Calcium.ionized [Moles/volume] in Blood CALCIUM IONIZED BLOOD Lab Routine Megaloblastic anemia due to vitamin B12 deficiency High total serum IgM Expected: 05/06/2022 (Approximate), Expires: 03/18/2023 [facility] Work Phone: Comment on above: Expected: 05/06/2022 (Approximate), Expi res: 03/18/2023 Start: 05-06-2022 End: 03-18-2023 CBC W Auto Differential panel - Blood CBC + DIFF Lab Routine Megaloblastic anemia due to vitamin B12 deficiency High total serum IgM Expected: 05/06/2022 (Approximate), Expires: 03/18/2023 [facility] Work Phone: Comment on above: Expected: 05/06/2022 (Approximate), Expi res: 03/18/2023 Start: 05-06-2022 End: 03-18-2023 Comprehensive metabolic 2000 panel - Serum or Plasma COMP METABOLIC PANEL Lab Routine Megaloblastic anemia due to vitamin B12 deficiency High total serum IgM Expected: 05/06/2022 (Approximate), Expires: 03/18/2023 [facility] Work Phone: Comment on above: Expected: 05/06/2022 (Approximate), Expi res: 03/18/2023 Start: 05-06-2022 End: 03-18-2023 Ferritin [Mass/volume] in Serum or Plasma FERRITIN BLD Lab Routine Megaloblastic anemia due to vitamin B12 deficiency High total serum IgM Expected: 05/06/2022 (Approximate), Expires: 03/18/2023 [facility] Work Phone: Comment on above: Expected: 05/06/2022 (Approximate), Expi res: 03/18/2023 Start: 05-06-2022 End: 03-18-2023 Iron and Iron binding capacity panel - Serum or Plasma IRON + TIBC Lab Routine Megaloblastic anemia due to vitamin B12 deficiency High total serum IgM Expected: 05/06/2022 (Approximate), Expires: 03/18/2023 [facility] Work Phone: Comment on above: Expected: 05/06/2022 (Approximate), Expi res: 03/18/2023 Start: 05-06-2022 End: 03-18-2023 Lactate dehydrogenase [Enzymatic activity/volume] in Serum or Plasma LD LACTATE DEHYDRO Lab Routine Megaloblastic anemia due to vitamin B12 deficiency High total serum IgM Expected: 05/06/2022 (Approximate), Expires: 03/18/2023 [facility] Work Phone: Comment on above: Expected: 05/06/2022 (Approximate), Expi res: 03/18/2023 Start: 05-06-2022 End: 03-18-2023 MONOCLONAL PROTEIN, SERUM (BLOOD) MONOCLONAL PROTEIN, SERUM (BLOOD) Lab Routine Megaloblastic anemia due to vitamin B12 deficiency High total serum IgM Expected: 05/06/2022 (Approximate), Expires: 03/18/2023 [facility] Work Phone: Comment on above: Expected: 05/06/2022 (Approximate), Expi res: 03/18/2023 Start: 05-06-2022 End: 03-18-2023 Phosphate [Mass/volume] in Serum or Plasma PHOSPHORUS INORGANIC Lab Routine Megaloblastic anemia due to vitamin B12 deficiency High total serum IgM Expected: 05/06/2022 (Approximate), Expires: 03/18/2023 [facility] Work Phone: Comment on above: Expected: 05/06/2022 (Approximate), Expi res: 03/18/2023 Start: 05-06-2022 End: 03-18-2023 PROTEIN ELECTROPHORESIS SERUM W/INTERP PROTEIN ELECTROPHORESIS SERUM W/INTERP Lab Routine Megaloblastic anemia due to vitamin B12 deficiency High total serum IgM Expected: 05/06/2022 (Approximate), Expires: 03/18/2023 [facility] Work Phone: Comment on above: Expected: 05/06/2022 (Approximate), Expi res: 03/18/2023 Start: 05-06-2022 End: 03-18-2023 Urate [Mass/volume] in Serum or Plasma URIC ACID BLOOD Lab Routine Megaloblastic anemia due to vitamin B12 deficiency High total serum IgM Expected: 05/06/2022 (Approximate), Expires: 03/18/2023 [facility] Work Phone: Comment on above: Expected: 05/06/2022 (Approximate), Expi res: 03/18/2023 Start: 04-05-2022 COVID-19 VACCINE (5 - Pfizer risk series) COVID-19 VACCINE (5 - Pfizer risk series) [facility] Start: 03-09-2022 End: 05-09-2022 Hemoglobin A1c in Blood HGB A1C Lab Routine Elevated glucose Expected: 03/09/2022, Expires: 05/09/2022 [facility] Work Phone: Comment on above: Expected: 03/09/2022, Expires: 2 Start: 02-24-2022 End: 04-26-2022 BARTONELLA AB PANEL BARTONELLA AB PANEL Lab Routine Swelling of lymph nodes Expected: 02/24/2022, Expires: 04/26/2022 [facility] Work Phone: Comment on above: Expected: 02/24/2022, Expires: 2 Start: 02-24-2022 End: 04-26-2022 BRUCELLA AB TOTAL BRUCELLA AB TOTAL Lab Routine Swelling of lymph nodes Expected: 02/24/2022, Expires: 04/26/2022 [facility] Work Phone: Comment on above: Expected: 02/24/2022, Expires: 2 Start: 02-24-2022 End: 04-26-2022 Cryptococcus sp Ag [Presence] in Unspecified specimen by Latex agglutination CRYPTOCOCCUS AG DET Microbiology Routine Swelling of lymph nodes Expected: 02/24/2022, Expires: 04/26/2022 [facility] Work Phone: Comment on above: Expected: 02/24/2022, Expires: 2 Start: 02-24-2022 End: 04-26-2022 HISTOPLASMA AG URINE HISTOPLASMA AG URINE Lab Routine Swelling of lymph nodes Expected: 02/24/2022, Expires: 04/26/2022 [facility] Work Phone: Comment on above: Expected: 02/24/2022, Expires: 2 Start: 02-24-2022 End: 04-26-2022 HIV 1 RNA [#/volume] (viral load) in Serum or Plasma by YESSI with probe detection HIV RNA VIRAL LOAD Lab Routine Swelling of lymph nodes Expected: 02/24/2022, Expires: 04/26/2022 [facility] Work Phone: Comment on above: Expected: 02/24/2022, Expires: 2 Start: 02-24-2022 End: 04-26-2022 SYPHILIS TOTAL W/REFLEX SYPHILIS TOTAL W/REFLEX Lab Routine Swelling of lymph nodes Expected: 02/24/2022, Expires: 04/26/2022 [facility] Work Phone: Comment on above: Expected: 02/24/2022, Expires: 2 Start: 01-22-2022 Influenza vaccination [facility] Start: 08-24-2021 COVID-19 VACCINE (4 - Booster for Pfizer series) COVID-19 VACCINE (4 - Booster for Pfizer series) [facility] Start: 01-22-2021 Influenza vaccination Flu vaccine (Season Ended) [employer] [facility] Work Phone: Start: 2020 Lipid panel Lipid screen [facility] Work Phone: Start: 2020 Mammography [facility] Start: 2020 Screening for malignant neoplasm of breast [facility] Start: 2010 HPV TESTING HPV TESTING [facility] Start: 2010 Screening for malignant neoplasm of cervix [facility] Start: 10-05-2007 HPV Vaccine (1 - Risk 3-dose SCDM series) HPV Vaccine (1 - Risk 3-dose SCDM series) [facility] Start: 2002 DTaP/Tdap/Td Vaccines (1 - Tdap) DTaP/Tdap/Td Vaccines (1 - Tdap) [facility] Start: 2001 PAP TESTING PAP TESTING [facility] Start: 2001 Screening for malignant neoplasm of cervix [facility] Start: 10-05-1999 DTaP,Tdap and Td Vaccines (1 - Tdap) DTaP,Tdap and Td Vaccines (1 - Tdap) [facility] Start: 10-05-1999 DTaP/Tdap/Td vaccine (1 - Tdap) DTaP/Tdap/Td vaccine (1 - Tdap) [employer] [facility] [employer] Phone: Start: 10-05-1999 Hepatitis B Vaccine (1 of 3 - 19+ 3-dose series) Hepatitis B Vaccine (1 of 3 - 19+ 3-dose series) [facility] Start: 10-05-1999 Hepatitis B Vaccines (1 of 3 - 19+ 3-dose series) Hepatitis B Vaccines (1 of 3 - 19+ 3-dose series) [facility] Start: 10-05-1999 Pneumococcal vaccination Pneumococcal Vaccine (1 of 2 - PCV) [facility] Start: 10-05-1999 Pneumococcal Vaccine: Pediatrics and At-Risk Adult Patients (1 of 2 - PCV) Pneumococcal Vaccine: Pediatrics and At-Risk Adult Patients (1 of 2 - PCV) [facility] Start: 10-05-1999 SHINGRIX VACCINE (1 of 2) SHINGRIX VACCINE (1 of 2) [facility] Start: 10-05-1999 Urine microalbumin profile [facility] Start: 10-05-1999 Zoster Vaccines (1 of 2) Zoster Vaccines (1 of 2) [facility] Start: 1998 Adult BMI Follow Up Plan Adult BMI Follow Up Plan [facility] Start: 1998 Adult BMI Screening Adult BMI Screening [facility] Start: 1998 Anxiety Screening Anxiety Screening [facility] Start: 1998 Hepatitis C screening Hepatitis C Screening [facility] Start: 1998 HIV SCREENING HIV SCREENING [facility] Start: 1998 HIV screening HIV Screening [facility] Start: 10-05-1995 HIV screening HIV screen [employer] Phone: Start: 1993 Varicella vaccination Varicella Vaccines (1 of 2 - 13+ 2-dose series) [facility] Start: 1992 COVID-19 Vaccine (1) COVID-19 Vaccine (1) [employer] [facility] Phone: Start: 1992 Depression Screening Depression Screening [facility] Start: 1992 Tobacco Screening Tobacco Screening [facility] Start: 10-05-1991 Screening for malignant neoplasm of cervix Cervical Cancer Screening [facility] Start: 1986 PNEUMOCOCCAL (1 - PCV) PNEUMOCOCCAL (1 - PCV) [facility] Start: 1986 Pneumococcal vaccination [facility] Start: 1986 Pneumococcal Vaccine: Pediatrics (0 to 5 Years) and At-Risk Patients (6 to 64 Years) (1 - PCV) Pneumococcal Vaccine: Pediatrics (0 to 5 Years) and At-Risk Patients (6 to 64 Years) (1 - PCV) [facility] Start: 1981 MMR Vaccines (1 of 1 - Standard series) MMR Vaccines (1 of 1 - Standard series) [facility] Start: 1981 Varicella vaccination Varicella Vaccines (1 of 2 - 2-dose childhood series) [facility] Start: 1981 Varicella vaccine (1 of 2 - 2-dose childhood series) Varicella vaccine (1 of 2 - 2-dose childhood series) [employer] Phone: Start: 1980 HEPATITIS B (1 of 3 - 3-dose series) HEPATITIS B (1 of 3 - 3-dose series) [facility] Start: 1980 Hepatitis B Vaccine (1 of 3 - 3-dose series) Hepatitis B Vaccine (1 of 3 - 3-dose series) [facility] Start: 1980 Hepatitis B Vaccines (1 of 3 - 3-dose series) Hepatitis B Vaccines (1 of 3 - 3-dose series) [facility] Start: 1980 Hepatitis C screening Hepatitis C screen [employer] Phone: Start: 1980 HIV screening HIV Screening [facility] Start: 1980 HPV Vaccine: Recommended Based On Risk HPV Vaccine: Recommended Based On Risk [facility] Start: 1980 Lipid panel Lipid Panel [facility] Start: 1980 Screening for osteoporosis Bone Density Scan [facility] Start: 1980 Tobacco Counseling Tobacco Counseling [facility] Start: 1980 Yearly Adult Physical Yearly Adult Physical [facility] 25-hydroxyvitamin D3 [Mass/volume] in Serum or Plasma VITAMIN D 25 HYDROXY Lab Routine Vitamin D deficiency 01/11/2025 1:48 PM EDT [facility] BLOOD TB SCREEN BLOOD TB SCREEN Lab Routine Screening-pulmonary TB 01/11/2025 1:48 PM EDT [facility] C reactive protein [Mass/volume] in Serum or Plasma C-REACTIVE PROTEIN Lab Routine Elevated sed rate Elevated C-reactive protein (CRP) 01/11/2025 1:48 PM EDT [facility] Cardiovascular funct ion eval w/tilt table w/mntr TILT TABLE EVALUATION Cardiology Routine POTS (postural orthostatic tachycardia syndrome) Ordered: 03/09/2022 [facility] Work Phone: Comment on above: Ordered: 03/09/2022 CBC W Auto Different ial panel - Blood CBC and differential Lab Routine Menorrhagia with regular cycle Ordered: 03/23/2024 [facility] [employer] Work Phone: Comment on above: Ordered: 03/23/2024 Chronic hepatitis differentiation between hepatitis B and C virus panel - Serum or Plasma HEP REMOTE PANEL BL Lab Routine Elevated LFTs 01/11/2025 1:48 PM EDT [facility] Cobalamin (Vitamin B 12) [Mass/volume] in Serum or Plasma VITAMIN B12 Lab Routine Vitamin B12 deficiency 01/11/2025 1:48 PM EDT [facility] CT Abdomen W contrast IV [facility] End: 03-05-2024 DXA-AXIAL SKELETON DXA-AXIAL SKELETON Radiology Routine Steroid-induced osteoporosis 1 Occurrences starting 02/04/2023 until 03/05/2024 [facility] Work Phone: Comment on above: 1 Occurrences starting 02/04/2023 until 03/05/2024 End: 03-05-2024 DXA-FOREARM SKELETON DXA-FOREARM SKELETON Radiology Routine Steroid-induced osteoporosis 1 Occurrences starting 02/04/2023 until 03/05/2024 [facility] Work Phone: Comment on above: 1 Occurrences starting 02/04/2023 until 03/05/2024 ECG 12 Lead ECG 12 Lead ECG Routine Irregular heart rate 06/09/2023 8:28 AM EST [facility] Work Phone: Erythrocyte sediment ation rate SEDIMENTATION RATE, WESTERGREN Lab Routine Elevated sed rate Elevated C-reactive protein (CRP) 01/11/2025 1:48 PM EDT [facility] Work Phone: hCG, quantitative, hCG, quantitative, Lab Routine Menorrhagia with regular cycle Ordered: 03/23/2024 [facility] Comment on above: Ordered: 03/23/2024 Hemoglobin A1c/Hemoglobin.total in Blood Hemoglobin A1c Lab Routine Menorrhagia with regular cycle Ordered: 03/23/2024 [facility] Comment on above: Ordered: 03/23/2024 Hepatitis B virus co re Ab [Presence] in Serum HEPATITIS B CORE ANTIBODY TOTAL Lab Routine Elevated LFTs 01/11/2025 1:48 PM EDT [facility] Hepatitis B virus galarza rface Ab [Presence] in Serum HEPATITIS B SURFACE ANTIBODY Lab Routine Elevated LFTs 01/11/2025 1:48 PM EDT [facility] Hepatitis B virus galarza rface Ag [Presence] in Serum HEPATITIS B SURFACE ANTIGEN Lab Routine Elevated LFTs 01/11/2025 1:48 PM EDT [facility] Hepatitis C virus Ab [Presence] in Serum HEPATITIS C ANTIBODY IA WITH CONFIRMATION Lab Routine Elevated LFTs 01/11/2025 1:48 PM EDT [facility] End: 03-09-2023 HOME SLEEP APNEA TEST (HSAT) HOME SLEEP APNEA TEST (HSAT) Procedures Routine Somnolence, daytime Snoring 1 Occurrences starting 03/09/2022 until 03/09/2023 [facility] Work Phone: Comment on above: 1 Occurrences starting 03/09/2022 until 03/09/2023 HYDROGEN BREATH TEST B/O HYDROGE N BREATH TEST B/O Procedures Routine Diarrhea, unspecified type Abdominal pressure Ordered: 06/14/2024 [facility] Work Phone: Comment on above: Ordered: 06/14/2024 Oxygen therapy [[facility] Data Set] Initiate Oxygen Therapy Protocol Respiratory Care Routine Daily until discontinued starting 10/07/2020 [facility] Work Phone: Comment on above: Daily until discontinued starting 2020 Patient Education Know your Meds Jorge Luis Non Diagnostic Block [facility] Work Phone: Patient referral [facility] Work Phone: End: 03-04-2023 Polysomnogram POLYSOMNOGRAM (PSG) Procedures Routine Somnolence, daytime Snoring 1 Occurrences starting 03/04/2022 until 03/04/2023 [facility] Work Phone: Comment on above: 1 Occurrences starting 03/04/2022 until 03/04/2023 Prothrombin time (PT ) in Blood by Coagulation assay Protime-INR Lab Routine Menorrhagia with regular cycle Ordered: 03/23/2024 [facility] Comment on above: Ordered: 03/23/2024 THIN PREP TIS PAP AN D HR HPV DNA THIN PREP TIS PAP AND HR HPV DNA Pathology and Cytology Routine Well woman exam with routine gynecological exam Ordered: 06/06/2024 [facility] Comment on above: Ordered: 06/06/2024 Thyrotropin [Units/v olume] in Serum or Plasma TSH Lab Routine Menorrhagia with regular cycle Ordered: 03/23/2024 [facility] Comment on above: Ordered: 03/23/2024 Thyroxine (T4) free [Mass/volume] in Serum or Plasma T4, free Lab Routine Menorrhagia with regular cycle Ordered: 03/23/2024 [facility] Comment on above: Ordered: 03/23/2024 XR Thoracic spine 3 Views [facility] Immunizations Immunization Date Immunization Notes Care Provider Fa cili 02-23-2023 COVID-19 vaccine, ag e 12+ yr, season (PFIZER-BIONTTopBlip) Lynne Ni MD Work Phone: [facility] 02-08-2022 COVID-19 mRNA Bivale nt Booster (Pfizer) Gay Enciso [employer] Work Phone: [facility] 05-26-2021 COVID-19 mRNA, Comirnaty (Pfizer) Gay Enciso [employer] COUNSEL[employer]C Work Phone: [facility] 10-19-2020 COVID-19 mRNA, Comirnaty (Pfizer) Gay Enciso [employer] COUN[employer] Work Phone: [facility] 09-28-2020 COVID-19 mRNA, Comirnaty (Pfizer) Gay Enciso [employer]ER[employer] COUNSEL[employer] Work Phone: [facility] Payers Date Payer Category Payer Medicaid [facility] [id number] 2024 Self-pay [id number] 2017 Medicaid (Managed Care) [employer] [id number] 2017 Private Health Insurance [facility] [id number] 2017 Unknown [employer] [id number] 2017-Present [address] [place] [address] [id number] 2009 Medicaid [employer] [id number] 2009-Present [phone] [address] [place] [address] Medicaid [id number] 2009 Medicaid [id number]. [id number] 1980 Unknown [id number] 2.16.840.1.473265.3.579.2. 185 1980 Unknown [id number] 2.16.840.1.045979.3.579.2. 175 1980 Unknown [id number] 2.16.840.1.967813.3.579.2. 593 1980 Unknown [id number] 2.16.840.1.340294.3.579.2. 593 1980 Unknown [id number] 2.16.840.1.113358.3.579.2. 593 1980 Unknown [id number] 2.16.840.1.055941.3.579.2. 593 1980 Unknown [id number] 2.16.840.1.060614.3.579.2. 593 1980 Unknown [id number] 2.16.840.1.385923.3.579.2. 593 1980 Unknown [id number] 2.16.840.1.259234.3.579.2. 593 1980 Unknown [id number] 2.16.840.1.030981.3.579.2. 593 1980 Unknown [id number] 2.16.840.1.018369.3.579.2. 593 1980 Unknown [id number] 2.16.840.1.355882.3.579.2. 593 1980 Unknown [id number] 2.16.840.1.722616.3.579.2. 1244 1980 Unknown [id number] 2.16.840.1.398803.3.579.2. 1244 1980 Unknown [id number] 2.16.840.1.264585.3.579.2. 1259 1980 Unknown [id number] 2.16.840.1.935728.3.579.2. 1259 1980 Unknown [id number] 2.16.840.1.093491.3.579.2. 1258 1980 Unknown [id number] 2.16.840.1.987828.3.579.2. 1258 1980 Unknown [id number] 2.16.840.1.526691.3.579.2. 1258 1980 Unknown [id number] 2.16.840.1.539296.3.579.2. 1258 1980 Unknown [id number] 2.16.840.1.172831.3.579.2. 1258 1980 Unknown [id number] 2.16.840.1.376843.3.579.2. 1258 1980 Unknown [id number] 2.16.840.1.641537.3.579.2. 1258 1980 Unknown [id number] 2.16.840.1.487901.3.579.2. 9 1959 Unknown [id number] 1959 Unknown [id number] Unknown [id number] 2.16.840.1.991182.3.579.2. 531 Unknown [id number] 2.16.840.1.081043.3.579.2. 531 Unknown [id number] 2.16.840.1.213393.3.579.2. 531 Unknown [id number] 2.16.840.1.391987.3.579.2. 531 Social History Date Type Detail Facility Start: 05-24-1995 End: 11-08-2023 Tobacco smoking status WIIS Current every day smoker [facility] Start: 10-07-2020 End: 11-08-2023 Tobacco use and exposure Never used [facility] Start: 10-07-2020 End: 02-14-2025 Alcohol intake Lifetime non-drinker (finding) [facility] Phone: Start: 10-07-2020 History SDOH Alcohol Frequency 1 [employer] [facility] Phone: Start: 1980 Sex Assigned At Not on file [facility] Work Phone: Start: 02-22-2022 End: 07-26-2024 Exposure to SARS-CoV-2 (event) Not sure [facility] Start: 05-24-1995 History of tobacco use Cigarette Smo ker [facility] Start: 05-31-2014 End: 11-23-2024 Cigarettes smoked current (pack per day) - Reported 1 [facility] Start: 10-24-2021 End: 11-29-2024 Alcohol intake Current non-drinker of alcohol (finding) [facility] Start: 10-14-2021 End: 10-24-2021 Exposure to SARS-CoV-2 (event) Unable to assess [facility] Start: 10-22-2022 End: 11-23-2024 Sex Assigned At [facility] Start: 05-31-2014 Adult Depression Screening Assessment 1 [facility] Start: 10-19-2022 Tobacco Comment Current smoker , everyday, 11-20 cigarettes/day [facility] Start: 05-31-2023 Alcohol Comment Caffeine intak e : > 4 cups per day [facility] Start: 08-19-2016 End: 12-16-2023 Tobacco smoking status NHIS Smoker (finding) [facility] Start: 1980 Sex Assigned At Female F [facility] Start: 07-02-2016 End: 08-22-2024 Sex Female (finding) [facility] Start: 02-21-2024 Gender identity Identifies as female gender (finding) [facility] Goals Date Patient Goal Desired Activity /State Functional Status Date Assessment Result Facility 12-25-2014 Are you deaf, or do you have serious difficulty hearing No 12/25/2014 11:14 AM Chichi Womack Ma No [facility] 12-25-2014 Are you blind, or do you have serious difficulty seeing, even when wearing glasses No 12/25/2014 11:14 AM Chichi Womack Ma No [facility] 12-25-2014 Do you have serious difficulty walking or climbing stairs Yes 12/25/2014 11:14 AM Chichi Womack Ma Yes [facility] 12-25-2014 Do you have difficul ty dressing or bathing Yes 12/25/2014 11:14 AM EDT Chichi Zarco Ma Yes [facility] 12-25-2014 Because of a physica l, mental, or emotional condition, do you have difficulty doing errands alone such as visiting a physician's office or shopping No 12/25/2014 11:14 AM EDT Chichi Zarco Ma [facility] Mental Status Date Assessment Result Facility 12-25-2014 Because of a physica l, mental, or emotional condition, do you have serious difficulty concentrating, remembering, or making decisions No 12/25/2014 11:14 AM EDT Chichi Zarco Ma [facility] Clinical Notes 05-31-2014 to 02-21-2025 Bernabe English MD - 02/14/2025 3:20 PM EDTRohreElena nelson RN - 01/24/2025 3:40 PM EDTTelephone Encounter - Merry Chairez RN - 01/18/2025 5:09 PM EDJhonathan Saunders RN - 12/14/2024 3:58 PM EDT Note Date & Type Note Facility 02-21-2025 Note [facility] 02-21-2025 Note [facility] 02-14-2025 History of Presen t illness Narrative [...] Visit: as scheduled documented in this encounter [facility] 01-24-2025 Note [facility] 01-24-2025 History of Presen t illness Narrative Pt did not receive B12 injection today. Pt called & agreeable to receive it when she returns in 2 weeks for her Benlysta infusion. Pharmacy aware and moving date. Elena Alfonso RN documented in this encounter [facility] 01-18-2025 Telephone encounter Note MC message read by patient . [facility] 01-18-2025 Miscellaneous Notes MC message read [...] start prior authorization documented in this encounter [facility] 01-18-2025 Telephone encounter Note Please Call [...] sq benlysta to IV, start prior authorization [facility] 12-14-2024 Note HNO ID: [id number] Author: JHONATHAN VALE RN Service: ? Author Type: Registered Nurse Type: Progress Notes Filed: 12/14/2024 16:36 Note Text: Ran over 2 hours per patient request. [facility] 12-14-2024 History of Presen t illness Narrative Ran over 2 hours per patient request. documented in this encounter [facility] 12-14-2024 Note [facility] 12-14-2024 History of Presen t illness Narrative CMN RECEIVED BY [employer] [facility] VIA FAX, COMPLETED, AND PLACED IN PROVIDER MAILBOX FOR SIGNATURE Ama Esparza [employer] SENDING CMN: Josh SIGNED AND DATED CMN, FAXED TO DME & CONFIRMATION PAGE RECEIVED: 12.14.2024 documented in this encounter [facility] 11-30-2024 Evaluation note Diagnosis Onset Date Resolution Lumbosacral spondylosis acute J bart2024 9:03am Other [...] January 232024 9:23am Other chronic pain acute Sept2024 9:23am Sacroiliitis acute February 142024 9:23am [facility] Work Phone: [phone]) 835-699507-10-2025 Telephone encounter Note* Telephone Encounter - Enma Hamm RN - 11/30/2024 8:36 AM EDT Pt updated on results. Will continue with IVIG, as previously scheduled. Denied further needs or concerns at this time. Enma Hamm RN [facility]07-10-2025 Miscellaneous Notes* Telephone Encounter - Enma Hamm RN - 11/30/2024 8:36 AM EDT Pt updated on results. Will continue with IVIG, as previously scheduled. Denied further needs or concerns at this time. Enma Hamm RN [facility] History of Present illness Narrative* Vaibhav Carvalho APRN.TRUE - 11/29/2024 8:43 AM EDT Images from the original note were not included. NAME: TeraAriadna [facility] NO.: [id number] DATE OF SERVICE: .November 29, 2024 (Deven) [...] to monitor; no current intervention required per [facility] recommendations. 7. Pre-diabetes (R73.03) Borderline diabetic. [...] requiring a recent corticosteroid injection by her sampling expert. She experiences intermittent fatigue, shortness of breath, [...] injections. Shefollows with multiple doctors including and city planning engineer, project consultant, sampling expert and PCP. She has been told they [...] subcutaneously one time a week. Per PCP [id number] (BMX 1:1:1) 1:1:1 liqd Take 5 mL [...] (Crohn's [Other]) Mother . Vaibhav Carvalho APRN, VETERANS' COUNSELOR-C, OCN Hematology and Oncology Services Provided at: [place], [place] CC: Manuel Ferris MD [address] [facility] [address] documented in this encounterBrecksville [facility]07-03-2025 History of Present illness Narrative* KELVIN [...] Method: See MAR for details on administration. 0.2 ml of [...] Next Visit: as scheduled documented in this encounterSaint Joseph Hospital [id number] Telephone encounter Note* Telephone Encounter - Renea Schneider MA - 11/20/2024 12:00 PM EDT Patient coming in for treatment visit Wednesday11/29/24. Please add lab orders. thanks. Renea Schneider MA [facility]06-23-2025 Chief complaint+Reason for visit Narrative* Chief [...] Sacroiliitis January 17, 2025 10 :29am [facility] Work Phone: 1(950) 427-995506-23-2025 Chief complaint+Reason for visit Narrative * Chief [...] :29am Sacroiliitis January 17, 2025 10 :29am [facility] Work Phone: 1(665) 803-950006-23-2025 Evaluation note* Diagnosis Onset Date Resolution Status Admit Date Lumbosacral spondylosis acute J une 2024 11:15am Other chronic pain acute October 232024 11:15am Sacroiliitis acute November 13 11:15am Lumbosacral spondylosis acute J 2024 9:03am Other chronic pain acute November [...] Sacroiliitis acute January 17, 2025 10:29am [facility] Work Phone: 1(330) 940-751505-17-2025 History of Present illness Narrative* Lynne Ni [...] visit. Either the patient or their legal sales representative groceries has been informed of the risks and [...] easures, may consider osteoporosis treatment if on 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 steroids/abnormal bmd, take vitamin D script once [...] neurology/on metoprolol for POTs, avoid aggravating triggers, 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 pain recommendations per primary care provider/pain clinic/patient [...] Due to see vascular soon. Reports pain 5-10/31. Has hips/back stiffness minimal AM stiffness. Feels [...] jail steroids/abnormal bmd, take vitamin D script once [...] neurology/on metoprolol for POTs, avoid aggravating triggers, 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 pain recommendations per primary care provider/pain clinic/patient [...] measures, may consider osteoporosis treatment if on 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 steroids/abnormal bmd, take vitamin D script if [...] COVID-19 original vaccine, age 12+ yr, monovalent (Joppel - PURPLE TOP) 09/28/2020 10/19/2020 05/26/2021 COVID-19 vaccine, age 12+ yr (Joppel COMIRNATY) 02/23/2023 COVID-19 vaccine, age 12+ yr, bivalent (Joppel) 02/08/2022 Pneumovax no Flu shot no Tetanus [...] (33);NL cbc, cmp, negative hla b27; Outside [place] 06/2021 low vitamin D 16, vitamin b12-307;high [...] negative Sumaya's test, tinel's and phil tests [facility] JTS:no Tend. JTS: all over diffusely, both [...] Z79.899 Long-term use of high-risk medication Z79.52 long term 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 M79.641, M79.642 [...] left axilla punch biopsy, treated with keflex 8/11/23 saw allergy/immunology for high igm, low igg [...] over, legs and low back. Reports pain 12/31. Has minimal AM stiffness. Feels safe at [...] ures, may consider osteoporosis treatment if on 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 steroids/abnormal bmd, take vitamin D script once [...] neurology/on metoprolol for POTs, avoid aggravating triggers, 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 pain recommendations per primary care provider/pain clinic/patient [...] (200mg) daily with a meal Please see housekeeping attendant every 6-12months while on Hydroxychloroquine. reStart azathioprine [...] video & audio (virtual) or phone or cvca-hc-qbmd patient care, completing clinical documentation, obtaining and/or [...] Workers' Compensation? No Do you need an home care scheduler? No [facility] MYCHART ZOOM MESSAGE Question 10/06/2024 9:06 PM [...] my health Strongly Agree documented in this encounterBrecksville Va [facility]05-17-2025 NoteMer[facility]05-17-2025 Instructions* Patient Instructions* Lynne Ni MD [...] (200mg) daily with a meal Please see housekeeping attendant every 6-12months while on Hydroxychloroquine. azathioprine daily [...] your usual activities immediately. documented in this encounterBrecksville Va / [facility]05-16-2025 Telephone encounter Note * Telephone Encounter - Beatriz Sanchez LPN - 10/06/2024 1:46 PM EDT VM left that below message forwarded to her MC. Requested return call if unable to view message. [facility]05-16-2025 Miscellaneous Notes* Telephone Encounter - Beatriz Sanchez LPN - 10/06/2024 1:46 PM EDT AGUSTÍN left that below message forwarded to her MC. Requested return call if unable to view message. * Telephone Encounter - Lynne Ni MD - 10/06/2024 1:02 PM EDT Please Call patient if Maria Ct note not read to review results/released to My Chart if tests completed at [facility]: Mildly glucose, one borderline inflammatory test- care [...] D 30.9;normal rest of cbc, cmp, crp<0.3; 4/17/25 patient requests to switch sq benlysta to [...] accordingly. Lynne Ni MD documented in this encounterBrecksville Va / [facility]ille [facility]05-16-2025 Telephone encounter Note * Telephone Encounter - Lynne Ni MD - 10/06/2024 1:02 PM EDT Please Call patient if MyChart [...] above. Please process accordingly. Lynne Ni MD [facility]04-30-2025 NoteMer[facility] Anderson [facility]04-30-2025 Note [facility]04-29-2025 History of Present illness Narrative* Deborah Arroyo [facility] - 09/19/2024 10:00 AM EDT Patient Name [...] GENETIC TESTING: None. SOCIAL HISTORY: Lives in [place], [place] with her and daughter. Employment: [employer] Level of education: high school Alcohol/cigarettes/other: tobacco- smokes 1ppd since teens; EtOH- denied; illicit drug use- denied FAMILY HISTORY: - Patient's ethnicity: Maternal - ; Paternal - . - Partner's ethnicity: not applicable. - No known -Nepalese, Mediterranean, /Guinean, Lao-Slovenian/Cajun, or Ashkenazi Lutheran ancestry unless noted above. - Parental consanguinity: [...] Dr. Lance's physical examination will be documented inher note [...] Lance. Please see her note for assessment andplan. [...] via the connective tissue disorder panel at [facility] for Ariadna's daughter. Follow up will be [...] greater than 50% of which was spent ncms-zx-bmho counseling. This plan is being carried out per Dr. Lance's recommendations. Deborah Arroyo MS, [facility] Licensed Genetic Counselor [facility] CC: Dr. Last Lance CC: Ariadna Haley Via [employer] documented in this encounterBrecksville Va / [facility] Hospital04-29-2025 NoteMercy [facility] Anderson Hospital04-29-2025 NoteMercy Health Anderson Hospital04-29-2025 History of Present illness Narrative* Ny Lance MD - 09/19/2024 7:46 AM EDT Images from the original note were not included. Department of Medical Genetics and Genomics OUTPATIENT NEW VISIT NOTE Recording using [employer] software for draft documentation of the visit was discussed with the patient/authorized sales representative groceries; all questions welcomed and answered. Patient/authorized sales representative groceries agreed to proceed Patient Name: Ariadna Haley [...] has a history of using a palate tiltrotor crew chief. She reports delayed wound healing, possible hyperextensible [...] Gangrene - 02/04/2023 Steroid-Induced Osteoporosis - 02/04/2023 [facility] Current Use of Systemic Steroids - 02/04/2023 [...] subcutaneously one time a week. Per PCP ochwqfdvewPNCCM-dyrbfv-luyeilzqr (BMX 1:1:1) 1:1:1 liqd Take 5 mL [...] visit. PAST MEDICAL HISTORY: I have reviewed PMH on September 19, 2024 PAST MEDICAL HISTORY [...] OF ablation SOCIAL HISTORY: - Lives in [place], [place] with her and daughters. - Highest level of education: High school. 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 Paternal - . - No known -Nepalese, Mediterranean, /Guinean, Ashkenazi Lutheran, Lao-Slovenian/Cajun, or Maxwell ancestry unless noted above. - Parental consanguinity: [...] pedigree was collected by Deborah Arroyo MS, CGC at the patient's separate genetic counseling encounter. The pedigree will be scanned into [employer]. This information was reviewed with thefamily and [...] Management For Physiotherapists by Katarina Reza (Eds.), [facility], 2003, ISBN [id number]; Examination and Treatment of a Patient with Hypermobility by Jamia Costello, Physical Therapy vol. 80, 1999, pp. 386-396; or the PT articles at www.hypermobility.org - Advised on maintaining adequate salt intake and hydration to manage any potential dizziness or dysautonomia symptoms. - Discussed the potential use of compression stockings and the possibility of medical therapy for POTS symptoms when present, recommending follow-up with a head lineman. 2. Chronic pain syndrome (G89.4) Chronic joint [...] 87 minutes was spent with patient for esor-yv-liwf evaluation, discussion of genetic differential diagnoses, management plan, counseling, chart review, documentation and coordination of care. Portions of family history were obtained by Deborah Arroyo MS, [facility], which were reviewed with family and edited as necessary. All questions were answered to the best of my knowledge. Contact information has been provided to the patient. Ny Lance MD Staff Plastics And Composites Inspector Department of Medical Genetics and Genomics (DM) [facility] Appointments: [facility] CC: Deborah Arroyo MS, [facility] Ariadna Haley (via MyChart) [address] [facility] [address] Lynne Ni MD CC to PCP via fax: Manuel Ferris [address] [place] [address] documented in this encounterBrecksville Va / [facility]04-28-2025 Telephone encounter Note * Telephone Encounter - Lynne Ni MD - 09/18/2024 4:52 PM EDT Notify patient medication sent as requested Thank you. Patient's request for medication is as follows: Requested Prescriptions Pending Prescriptions Disp Refills belimumab (BENLYSTA) 200 mg/mL auto-injector 12 mL 3 Sig: Inject 200mg (1 pen) subcutaneously once weekly Prescription(s) as above. Please process accordingly. Lynne Ni MD [facility]04-28-2025 Miscellaneous Notes* Telephone Encounter - Lynne [...] MD * Telephone Encounter - Pamella Pichardo [facility] - 09/18/2024 10:52 AM EDT Patient needs refill of Benlysta Date of Ariadna Haley's last Rheumatology office visit: 03/18/24 Next appointment date: 10/07/24 Last labs: 08/29/24 Last TB test: TB Result Date Value Ref Range Status 03/23/2024 Negative Final Requested Prescriptions Pending Prescriptions Disp Refills belimumab (BENLYSTA) 200 mg/mL auto-injector 12 mL 3 Sig: Inject 200mg (1 pen) subcutaneously once weekly Patient prefers: [facility] Thank you! Maria Esther Pichardo, PharmD Clinical Pharmacist, [employer] [facility] ; Pool: P [facility] Pool #: [id number] documented in this encounterBrecksville Va / [facility]04-28-2025 Telephone encounter Note * Telephone Encounter - Macarena Sanchez - 09/18/2024 4:03 PM EDT Patient will be calling to reschedule her IV IG and benlysta. She needs to find a manager transfer and will call back with the dates that she will be available. [facility]04-28-2025 Miscellaneous Notes* Telephone Encounter - Macarena Sanchez - 09/18/2024 4:03 PM EDT Patient will be calling to reschedule her IV IG and benlysta. She needs to find a manager transfer and will call back with the dates that she will be available. documented in this encounterBrecksville Va / [facility]04-28-2025 Telephone encounter Note * Telephone Encounter [...] (1 pen) subcutaneously once weekly Patient prefers: [facility] Thank you! Maria Esther Pichardo, PharmD Clinical Pharmacist, [employer] [facility] ; Pool: P [facility] Pool #: [id number] [facility]04-22-2025 Telephone encounter Note* Telephone Encounter - Karina Pino - 09/12/2024 2:35 PM EDT Patient has been scheduled at [facility]04-22-2025 Miscellaneous Notes* Telephone Encounter - Karina Pino - 09/12/2024 2:35 PM EDT Patient has been scheduled at [facility] * Telephone Encounter - hSerrie Cortes - 09/12/2024 2:13 PM EDT Patient [...] below scheduling for the drug. Cesilia Hicks [facility] You25 minutes ago (11:20 AM) LS Please schedule her every 2 weeks for 3 doses, then every 4 weeks for Benlysta. Thanks, Cesilia Holman [facility] You27 minutes ago (11:18 AM) LS Christen is submitted and pending - okay to set her up 7+ days out. When you call her ask her when she had her last SQ dose, per the provider okay to schedule the IV dose 1 week after her SQ dose. Thanks, Cesilia * Telephone Encounter - Lynne Ni MD [...] to Rheum provider. Anahi Becerril RN nurse career services manager: patient would like to know if she [place] 8 [facility] [place] [facility] [place] Basia Samuel RN documented in this encounterBrecksville Va / [facility]04-22-2025 Telephone encounter Note * Telephone Encounter - Sherrie Cortes - 09/12/2024 2:13 PM EDT Patient called back and is now in agreement to schedule for Benlysta. Patient has been scheduled for Wednesday, 09/18. She will make her future appointments at this visit when she can work around her family arrangements. Spoke w/ T Wyatt regarding daughter recommendations and patient informed. Sherrie Cortes [facility]04-21-2025 Telephone encounter Note* Telephone Encounter - [...] below scheduling for the drug. Cesilia Hicks [facility] You25 minutes ago (11:20 AM) Please schedule her every 2 weeks for 3 doses, then every 4 weeks for Benlysta. Cesilia Vicente Laura [facility] You27 minutes ago (11:18 AM) LS Auth is submitted and pending - okay to set her up 7+ days out. When you call her ask her when she had her last SQ dose, per the provider okay to schedule the IV dose 1 week after her SQ dose. ThanksCesilia [facility]04-17-2025 Telephone encounter Note* Telephone Encounter - Lynne Ni MD - 09/07/2024 12:52 PM EDT Please start prior authorization for IV benlysta Signed therapy plan with loading doses if approved by insurance. May schedule 1week after last sq injection benlysta pen if approved. Thank you [facility]04-17-2025 Telephone encounter Note* Telephone Encounter - Enma Hamm RN - 09/07/2024 9:04 AM EDT Results discussed with pt. She is set for IVIG 10/04/24. She denies further questions needs or concerns at this time. Enma Hamm RN [facility]04-17-2025 Miscellaneous Notes* Telephone Encounter - Enma Hamm RN - 09/07/2024 9:04 AM EDT Results discussed with pt. She is set for IVIG 10/04/24. She denies further questions needs or concerns at this time. Enma Hamm RN documented in this encounterBrecksville Va / [facility]04-16-2025 Evaluation note* Diagnosis Onset Date Resolution Status Admit Date Lumbosacral spondylosis acute A pril 2024 3:42pm Other chronic pain acute September 06, 2024 3:42pm Sacroiliitis acute September 06, 2024 3:42pm Lumbosacral spondylosis acute J une 2024 11:15am Other chronic pain acute October 232024 11:15am Sacroiliitis acute November 13 11:15am [facility] Work Phone: 1(439) 753-484804-16-2025 Evaluation note* Diagnosis Onset Date Resolution Status Admit Date Lumbosacral spondylosis acute A pril 2024 3:42pm Other chronic pain acute September 06, 2024 3:42pm Sacroiliitis acute September 06, 2024 3:42pm Lumbosacral spondylosis acute J une 2024 11:15am Other chronic pain acute October 232024 11:15am Sacroiliitis acute November 13 11:15am Lumbosacral spondylosis acute J 2024 9:03am Other chronic pain acute November 212024 9:03am Sacroiliitis acute November 30 9:03am [facility] Work Phone: 1(649) 379-901204-16-2025 Telephone encounter Note* Telephone Encounter - Basia Samuel RN - 09/06/2024 4:20 PM EDT Patient has requested to switch from Benlysta injections to infusions. Will forward to Rheum provider. Anahi Becerril RN nurse career services manager: patient would like to know if she can bring her 8 year old to treatmentsin the summer. Basia Samuel RN [facility]04-16-2025 History of Present illness Narrative* DevenMarvelVaibhavMAURILIO.MANAGER EXPORT - 09/06/2024 9:00 AM EDT Images from the original note were not included. NAME: Ariadna Haley CLINIC NO.: [id number] DATE OF SERVICE: September 06, 2024 (Deven) [...] injections. Shefollows with multiple doctors including and city planning engineer, project consultant, sampling expert and PCP. She has been told they [...] THREE TIMES A DAY^Disp: 135 tablet^Rfl: 1 flfexqwnjwPUXKT-ggmewe-zhulpskpy (BMX 1:1:1) 1:1:1 liqd^Take 5 mL by [...] (Crohn's [Other]) Mother . Vaibhav Carvalho APRN, VETERANS' COUNSELOR-C, OCN Hematology and Oncology Services Provided at: [place], [place] CC: Manuel Ferris MD [address] [facility] [address] documented in this encounterBrecksville Va / [facility]04-16-2025 NoteMercy [facility]04-14-2025 History of Present illness Narrative* Gordo Barfield MD - 09/04/2024 3:20 PM EDT Subjective Patient ID: Ariadna Haley is a 43 y.o. female who presents for Thyroid Nodule (Follow up ultrasound [facility] 08/24/24) Thyroid US shows a [id number] left inf pole TR4 nodule. Radiology notes [...] 03/05/2021 Hair loss 03/05/2021 Hyperlipidemia (CMS/HCC) 05/31/2014 [facility] 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 02/04/2023 Long-term use of high-risk medication 06/15/2022 Long-term use of Plaquenil 03/05/2021 LPRD (laryngopharyngeal reflux disease) 07/06/2023 Megaloblastic anemia due to vitamin B12 deficiency 03/04/2022 Myalgia 07/06/2023 Obesity, Class III, BMI 40-49.9 (morbid obesity) ([facility] 09/07/2022 Obstructive sleep apnea syndrome 05/20/2022 Oral lesion 07/06/2023 Pain, hip 07/06/2023 Rash and nonspecific skin eruption 03/05/2021 Steroid-induced osteoporosis ([facility]) 02/04/2023 Somnolence, daytime 05/20/2022 Secondary osteoarthritis of multiple sites 03/05/2021 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 02/04/2023 Swelling of lymph nodes 03/05/2021 Vitamin D deficiency 03/06/2021 Vitamin B12 deficiency 05/31/2014 Pure hypercholesterolemia, unspecified ([facility]) 08/10/2023 Hoarse 08/10/2023 Thyroid nodule ([facility]) 08/10/2023 Shortness of breath 07/13/2023 Paroxysmal supraventricular tachycardia ([facility]) 07/13/2023 PAC (premature atrial contraction) 07/13/2023 Degenerative disc disease, lumbar 11/08/2023 Paresthesias 11/08/2023 Nipple discharge 11/15/2023 Irregular periods/menstrual cycles 11/15/2023 Facet arthritis of lumbar region 12/15/2023 Prediabetes 08/24/2023 C. difficile diarrhea 03/07/2024 Diarrhea 03/07/2024 Duct ectasia of breast 03/07/2024 Frequent infections 04/01/2024 GERD (gastroesophageal reflux disease) 03/07/2024 History of vitamin D deficiency 10/05/2023 Hypogammaglobulinemia ([facility]) 04/01/2024 Insulin resistance 03/07/2024 Lupus erythematosus 04/06/2024 Sacroiliitis ([facility]) 04/06/2024 Resolved Ambulatory Problems Diagnosis Date Noted No Resolved Ambulatory Problems Past Medical History: Diagnosis Date Cervical lymphadenopathy COVID-19 vaccine administered Difficulty walking Fatigue Fibromyalgia, primary History of removal of cyst 2012 HTN (hypertension) ([facility]) Hx of abnormal cervical Pap smear IgG [...] % gel ergocalciferol (Vitamin D2) 1.25 MG (29014 UT) capsule Take 50,000 Units by mouth [...] for more aggressive care documented in this encounterSaint Joseph Hospital [id number] Telephone encounter Note* Telephone Encounter - Blank Kimball - 09/02/2024 10:28 AM EDT Called and spoke with patient, patient is scheduled for a VV on 10/07/24 at 8:00am. Patient stated will complete labs a walk in [facility]04-12-2025 Miscellaneous Notes* Telephone Encounter - Blank [...] diagnoses: Vitamin D deficiency documented in this encounterBrecksville Va / [facility]04-11-2025 Telephone encounter Note * Telephone Encounter [...] above. Please process accordingly. Lynne Ni MD [facility]04-11-2025 Telephone encounter Note* Telephone Encounter - [...] Ni MD Assoc. diagnoses: Vitamin D deficiency [facility]04-07-2025 Telephone encounter Note* Telephone Encounter - Renea Schneider MA - 08/28/2024 11:04 AM EDT Do you want labs? Patient coming in Wednesday09/06/24 for follow up treatment. Thanks, Renea Schneider MA [facility]04-01-2025 Miscellaneous Notes* Telephone Encounter - Renea Schneider MA - 08/28/2024 11:04 AM EDT Do you want labs? Patient coming in Wednesday09/06/24 for follow up treatment. Thanks, Renea Schneider MA documented in this encounterBrecksville Va / [facility]ille [facility]04-01-2025 Miscellaneous Notes* Telephone Encounter - Renea Schneider MA - 11/20/2024 12:00 PM EDT Patient coming in for treatment visit Wednesday11/29/24. Please add lab orders. thanks. Renea Schneider MA documented in this encounterBrecksville Va / [facility]ille Hospital03-27-2025 NoteMercy Health [facility] Hospital03-18-2025 Telephone encounter Note* Telephone Encounter - [...] and patient is aware. Basia Samuel RN [facility]03-18-2025 Miscellaneous Notes* Telephone Encounter - Basia [...] aware. Basia Samuel RN documented in this encounterBrecksville Va / [facility]ille Hospital03-18-2025 NoteMercy Health [facility] Hospital03-18-2025 History of Present illness Narrative* Basia Samuel RN - 08/08/2024 9:03 AM EDT Patient states that she spoke with provider and she will defer IV iron for now, she is taking oral iron and will have labs rechecked in 1 month Basia Samuel RN documented in this encounterBrecksville Va / [facility]03-05-2025 History of Present illness Narrative* Lois Holm MD - 07/26/2024 2:50 PM EST Subjective Ariadna Haley is a 43 y.o. [...] lupus being treated by rheumatology at the [facility] on steroids, Plaquenil and monoclonal antibody [...] , Rfl: ergocalciferol (Vitamin D-2) 1.25 MG (21411 UT) capsule, Take 1 capsule (50,000 Units) [...] By signing my name below, I, Carina Maikol Gibbs LPN attest that this documentation has been prepared under the direction and in the presence of Lois Holm MD. Provider Attestation - Scribe documentation All medical record entries made by the Scribe were at my direction and personally dictated by me. Ihjoelle reviewed the chart and agree that the record accurately reflects my personal performance of the history, physical exam, discussion and plan. documented in this [facility] Work Phone: 1(907) 361-964503-05-2025 Instructions* Patient Instructions* Aissatou Hanson RN - [...] time of your visit. documented in this [facility] Work Phone: 1(702) 823-556403-04-2025 History of Present illness Narrative* Bernabe English [...] ointment bid. On Plaquenil and Benlysta from project consultant and started IVIG from databases computer consultant. Follow up Diagnosis: Hidradenitis Location: thighs Last [...] given frequent flares of thrush. Start Nystatin 950588 unit suspension qid x 14 days. Recommended [...] not swallow it. Related Medications nystatin (Mycostatin) 069700 UNIT/ML suspension Take 4 mL (400,000 Units) [...] is needed. Instructed to follow up with ENGLISH COMPOSITION INSTRUCTOR for further work up. Next Visit: 1 year documented in this encounterSaint Joseph Hospital [id number] History of Present illness Narrative* Luna Emanuel [...] been reviewed prior to dispensing the medication. Scaleman Assessment Patient confirmed: Yes Med/dose confirmed: Yes Supplies needed: No supplies needed Missed doses: No Copay amount: 0 Payment confirmed: Yes Delivery method: FedEx Signature required: Waived on patient request Delivery address: [address] [place] [address], [facility] [address] Delivery date: 07/27/24 Questions or concerns for the pharmacist?: No Did you have any side effects believed to be related to this medication, that resulted in hospitalization?: No Current Outpatient Medications on File Prior to Visit Medication Sig orbbpzhaykIGIZR-loufcq-pmkkgzjow (BMX 1:1:1) 1:1:1 liqd Take 5 mL [...] facility-administered medications on file prior to visit. [facility] RX SPECIALTY CLINICAL ASSESSMENT [...] longer tolerated. Luna Emanuel documented in this encounterBrecksville Va [facility]ille [facility]03-04-2025 NoteMercy [facility] Anderson [facility]02-27-2025 NoteHNO ID: [id number] Author: ALHAJI HEAD, DO Service: ? Author Type: Physician Type: Progress Notes Filed: 07/21/2024 13:05 Note Text: VIRTUAL VISIT PROGRESS NOTE This is a virtual visit using [employer] Video Visit. It required patient-provider interaction for the medical decision making as documented below. I have communicated my name and active licensure. The patient's identity and physical location were verified at the time of this visit. Either the patient or their legal sales representative groceries has been informed of the risks and [...] of 18 Current Outpatient Medications Medication Sig htgotmoggfQFWUP-gqgmju-dpenkzmio (BMX 1:1:1) 1:1:1 liqd Take 5 mL [...] WHILE ON* belimumab ( (more content not included)...[facility]02-27-2025 History of Present illness Narrative* Alhaji Head DO - 07/20/2024 11:41 AM EST VIRTUAL VISIT PROGRESS NOTE This is a virtual visit using Snob[employer] Zoom Video Visit. It required patient- provider interaction for the medical decision making as documented below. I have communicated my name and active licensure. The patient's identity and physical location wereverified at the time of this visit. Either the patient or their legal sales representative groceries has been informed of the risks and [...] of 18 Current Outpatient Medications Medication Sig vzixmpypwzRIHFP-acqygp-nwauebikp (BMX 1:1:1) 1:1:1 liqd Take 5 mL [...] on the R. The patient or authorized sales representative groceries has agreed to proceed with the sensitive [...] axillary nodule which is being followed by cloth mercerizing supervisor. Through shared decision making with the patient, [...] DO July 21, 2024 documented in this encounterBrecksville Va / [facility]ille [facility]02-26-20[place] [address] Pain Management Procedure Note Signed Patient: Ariadna Haley MR#: [id number] : 1980 Acct:[id number] Age/Sex: 43 / F Adm Date: Loc: Room: Type: [facility] Attending Dr: Adolfo Kang MD Copies [...] MD 07/19/24 1104 Signed By: 07/19/24 1134 [facility]02-19-2025 Instructions* Patient Instructions* Marky Barnes PA-C - 07/12/2024 2:33 PM EST Alginate therapy (Reflux Raft, Reflux Gourmet) documented in this encounterBrecksville Va / Crille Hospital02-19-2025 NoteMercy Health Anderson Hospital02-19-2025 History of Present illness Narrative* Marky Barnes PA-C - 07/12/2024 2:14 PM EST Images from the original note were not included. [facility] [place] [facility] NOTE CC: Ariadna Haley is a [...] Current medication(s): Current Outpatient Medications Medication Sig ojjfkzgtmqCBTZC-fdawew-rkzaaqpvy (BMX 1:1:1) 1:1:1 liqd Take 5 mL [...] Level: 3 - Low documented in this encounterBrecksville Va / [facility]ille [facility]02-17-2025 Evaluation note* Diagnosis Onset Date Resolution Status Admit Date Lumbosacral spondylosis acute F ebruary 2024 3:16pm Other chronic pain acute Februa ry 2024 3:16pm Sacroiliitis acute June 3:16pm [facility] Work Phone: 1(469) 514-220802-17-2025 Evaluation note* Diagnosis Onset Date Resolution Status Admit Date Lumbosacral spondylosis acute F ebruary 2024 3:16pm Other chronic pain acute Februa ry 2024 3:16pm Sacroiliitis acute June 3:16pm Lumbosacral spondylosis acute M 2024 3:40pm Other chronic pain acute July 31, 2024 3:40pm Sacroiliitis acute July 31, 2024 3:40pm [facility] Work Phone: 1(191) 917-279402-17-2025 Telephone encounter Note* Telephone Encounter - Krista Braswell MA - 07/10/2024 7:28 AM EST Pt was notified via . [facility]02-17-2025 Miscellaneous Notes* Telephone Encounter - Krista Fonseca MA - 07/10/2024 7:28 AM EST Pt was notified via . * Telephone Encounter - Lynne Ni MD - 07/09/2024 3:48 PM EST Please Call patient if MyChart note not read to review results/released to My Chart if tests completed at [facility]: Mildly high normal wbc, glucose, one borderline [...] accordingly. Lynne Ni MD documented in this encounterBrecksville Va / [facility]02-16-2025 Telephone encounter Note * Telephone Encounter - Lynne Ni MD - 07/09/2024 3:48 PM EST Please Call patient if MyChart note not read to review results/released to My Chart if tests completed at F: Mildly high normal wbc, glucose, one borderline [...] above. Please process accordingly. Lynne Ni MD [facility]02-06-2025 History of Present illness Narrative* Luna [...] been reviewed prior to dispensing the medication. Scaleman Assessment Patient confirmed: Yes Med/dose confirmed: Yes Supplies needed: No supplies needed Missed doses: No Estimated days supply on hand: 1 Copay amount: 0 Payment confirmed: Yes Delivery method: FedEx Signature required: Waived on patient request Delivery address: [address] [place] [address] Delivery date: 07/05/24 Questions or concerns for [...] facility-administered medications on file prior to visit. [facility] RX SPECIALTY CLINICAL ASSESSMENT [...] longer tolerated. Luna Emanuel documented in this encounterBrecksville Va / [facility] Hospital02-06-2025 NoteMercy Health Anderson Hospital01-31-2025 Telephone encounter Note* Telephone Encounter - Krista Fonseca MA - 06/23/2024 8:27 AM EST Pt has been notified via [employer]. [facility]01-31-2025 Miscellaneous Notes* Telephone Encounter - Krista Fonseca MA - 06/23/2024 8:27 AM EST Pt has been notified via [employer]. * Telephone Encounter - Lynne Ni MD [...] accordingly. Lynne Ni MD documented in this encounterBrecksville Va / [facility]01-30-2025 Telephone encounter Note * Telephone Encounter [...] above. Please process accordingly. Lynne Ni MD [facility]01-29-2025 Telephone encounter Note* Telephone Encounter - Sherrie Cortes - 06/21/2024 2:10 PM EST Thanks for the clarification! I didn't schedule the patient yet for Iron because of the question below so we are all good. Thank you! Sherrie Cortes [facility]01-29-2025 Miscellaneous Notes* Telephone Encounter - Sherrie [...] we will recheck. thanks documented in this encounterBrecksville Va / Crille Hospital01-29-2025 Telephone encounter Note * Telephone Encounter [...] is aware you will call if needed. [facility]01-29-2025 Telephone encounter Note* Telephone Encounter - Vaibhav Carvalho APRN.CNP - 06/21/2024 1:07 PM EST Ok that is fine she can try oral iron Ferrous sulfate 325 mg every other day. Ok to keep her next appointment and we will recheck. thanks [facility]01-28-2025 Telephone encounter Note* Telephone Encounter - Sherrie Cortes - 06/20/2024 8:38 AM EST Left another message for patient. Sent MyChart to call back to schedule infusions when she's ready to schedule and provided phone number. Sherrie Cortes [facility]01-28-2025 Miscellaneous Notes* Telephone Encounter - Sherrie [...] callback with any questions. documented in this encounterBrecksville Va / [facility]ille Hospital01-24-2025 Telephone encounter Note * Telephone Encounter - Sherrie Cortes - 06/16/2024 3:32 PM EST Call placed to patient, no answer. Left detailed message to call back to schedule for Venofer. Sherrie Cortes [facility]01-24-2025 Telephone encounter Note* Telephone Encounter - Vaibhav Carvalho APRN.CNP - 06/16/2024 12:26 PM EST Called patient and left a message regarding iron infusions. I did inform patient that she is low oniron and we can replace with IV infusion. Will have the office call to schedule. Encouraged to callback with any questions. [facility]01-23-2025 Telephone encounter Note* Telephone Encounter - [...] Pt had recent mammogram that was negative [facility] [id number] Miscellaneous Notes* Telephone Encounter - KELVIN Cabrera [...] mammogram that was negative documented in this encounterSaint Joseph Hospital [id number] History of Present illness Narrative* Iraida Pate APRN.CNP - 06/14/2024 10:43 AM EST Glucose - SIBO CPT 99992 Hydrogen Breath Test Ariadna Torres Tera 1980 June 14, 2024 Referring Physician: Bandar Portillo NP Indication: NSG TEST INDICATIONS: Diarrhea R19.7, Abdominal Pressure R10.9 Weight: 275 lbs Location: [facility] Duration of Test: 2 hrs Hydrogen Methane [...] Test Results: negative Physician Signature: Iraida Pate APRN.MANAGER EXPORT documented in this encounterBrecksville Va / Crille [facility]01-21-2025 Progress note* [facility] - Dionne Driver, [...] Jose Daniel Erwin Therapist PATIENT NAME: Ariadna Torres Tera DATE: June 13, 2024 TIME: 10:29 AM PAGER/CONTACT #: [facility]01-21-2025 Miscellaneous Notes* Allied Health - Dionne Driver, Art Therapist [...] Jose Daniel Erwin Therapist PATIENT NAME: Ariadna B Tera DATE: June 13, 2024 TIME: 10:29 AM PAGER/CONTACT #: documented in this encounterBrecksville Va / [facility]ille Hospital01-21-2025 NoteMercy Health Anderson Hospital01-21-2025 History of Present illness Narrative* Vaibhav aCrvalho APRN.MANAGER EXPORT - 06/13/2024 9:07 AM EST Images from the original note were not included. NAME: Ariadna Haley [facility] NO.: [id number] DATE OF SERVICE: June 13, 2024 (Deven) [...] injections. Shefollows with multiple doctors including and city planning engineer, project consultant, sampling expert and PCP. She has been told they [...] (Crohn's [Other]) Mother . Vaibhav Carvalho APRN, VETERANS' COUNSELOR-C, [facility] Provided at: [place], [place] CC: Manuel Ferris MD [address] [facility] [address] documented in this encounterBrecksville Va / [facility]01-20-2025 [facility]01-20-2025 History of Present illness Narrative* Lee Friedman - 06/12/2024 2:31 PM EST CMN RECEIVED BY [employer] VIA FAX, COMPLETED, AND PLACED IN PROVIDER MAILBOX FOR SIGNATURE Lee Friedman Coordinator III [employer] SENDING CMN: Josh SIGNED AND DATED CMN, FAXED TO DME & CONFIRMATION PAGE RECEIVED: 06.28.2024 documented in this encounterBrecksville Va / [facility]01-20-2025 Telephone encounter Note * Telephone Encounter - Margret Cuenca MA - 06/12/2024 12:00 PM EST Patient has an OTV appointment on 06/13. Please place lab orders. Margret Cuenca MA [facility]01-20-2025 Miscellaneous Notes* Telephone Encounter - Margret Cuenca MA - 06/12/2024 12:00 PM EST Patient has an OTV appointment on 06/13. Please place lab orders. Margret Cuenca MA documented in this encounterBrecksville Va / Crille Hospital01-14-2025 History of Present illness Narrative* Luna [...] been reviewed prior to dispensing the medication. Scaleman Assessment Patient confirmed: Yes Med/dose confirmed: Yes Supplies needed: No supplies needed Missed doses: No Estimated days supply on hand: 1 Copay amount: 0 Payment confirmed: Yes Delivery method: FedEx Signature required: Waived on patient request Delivery address: [address] [place] [id number] Delivery date: 06/08/24 Questions or concerns for [...] facility-administered medications on file prior to visit. [facility] RX SPECIALTY CLINICAL ASSESSMENT [...] longer tolerated. Luna Emanuel documented in this encounterBrecksville Va / [facility]ille Hospital01-14-2025 NoteMercy Health Anderson Hospital01-14-2025 History of Present illness Narrative* KELVIN Cabrera - 06/06/2024 11:00 AM EST Images from the original note were not included. Reason for Appointment: Patient ID: Ariadna Haley is a 43 y.o. female who presents for [facility] Visit Patient presents today for Annual [...] Ambulatory Problems Diagnosis Date Noted Autoimmune disease ([facility]) 06/01/2023 Fibromyalgia 06/01/2023 Autonomic dysfunction 06/01/2023 Dizziness [...] infection (HCC) (CMS/HCC) 07/06/2023 Depression, recurrent (CMS/[facility]) 06/09/2023 Discoid lupus erythematosus (CMS/[facility]) 02/14/2022 Disturbance of skin sensation 07/06/2023 Elevated sed rate 03/05/2021 High total serum IgM 03/05/2021 Enthesopathy of hip region 07/06/2023 Essential hypertension (CMS/HCC) 06/09/2023 Excessive and frequent menstruation with irregular cycle 09/24/2022 Family history of Crohn's disease 03/05/2021 Hair loss 03/05/2021 Hyperlipidemia (CMS/HCC) 05/31/2014 FPC 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 02/04/2023 Long-term use of high-risk medication 06/15/2022 Long-term use of Plaquenil 03/05/2021 LPRD (laryngopharyngeal reflux disease) 07/06/2023 Megaloblastic anemia due to vitamin B12 deficiency 03/04/2022 Myalgia 07/06/2023 Obesity, Class III, BMI 40-49.9 (morbid obesity) ([facility]) 09/07/2022 Obstructive sleep apnea syndrome 05/20/2022 Oral lesion 07/06/2023 Pain, hip 07/06/2023 Rash and nonspecific skin eruption 03/05/2021 Steroid-induced osteoporosis ([facility]/HCC) 02/04/2023 Somnolence, daytime 05/20/2022 Secondary osteoarthritis of [...] Chronic laryngopharyngitis COVID-19 vaccine administered x 2 (L4 Mobile) Difficulty walking Fatigue Fibromyalgia, primary GERD (gastroesophageal [...] behalf of: KELVIN Cabrera documented in this encounterSaint Joseph Hospital [id number] [facility]12-23-2024 History of Present illness Narrative* Deisy Jaime LSW - 05/15/2024 9:09 AM EST Patient's name appears on the [facility] First Time Treatment Report for a non- oncology treatment. No psychosocial assessment is indicated. BILL Rosenberg Goals of Care Advance Directives are not on file. documented in this encounterBrecksville Va / Crille Hospital12-20-2024 History of Present illness Narrative* Luna [...] been reviewed prior to dispensing the medication. Scaleman Assessment Patient confirmed: Yes Med/dose confirmed: Yes Supplies needed: No supplies needed Missed doses: No Estimated days supply on hand: 1 Copay amount: 0 Payment confirmed: Yes Delivery method: FedEx Signature required: Waived on patient request Delivery address: [address] [place] [id number] Delivery date: 05/16/24 Questions or concerns for [...] facility-administered medications on file prior to visit. [facility] RX SPECIALTY CLINICAL ASSESSMENT [...] longer tolerated. Luna Emanuel documented in this encounterBrecksville Va / Crille Hospital12-20-2024 NoteMercy Health Anderson Hospital12-04-2024 Nurse Note* Radha Schofield MA - 04/26/2024 9:32 AM EST Patient Identification confirmed: yes. Injection given and documented on JUL per provider order. Radha Schfoield MA [facility]12-04-2024 Nurse Note* Radha Schofield MA - 04/26/2024 9:32 AM EST Patient Identification confirmed: yes. Injection given and documented on JUL per provider order. Radha Schofield MA documented in this encounterBrecksville Va / [facility]11-22-2024 Telephone encounter Note * Telephone Encounter - Gay Barnett - 04/14/2024 12:11 PM EST Patient coming in for a sibo breath test on Wednesday and has been on keflex for 3 days and needs to be on for ten so she will need to reschedule [facility]11-22-2024 Miscellaneous Notes* Telephone Encounter - Gay Barnett - 04/14/2024 12:11 PM EST Patient coming in for a sibo breath test on Wednesday and has been on keflex for 3 days and needs to be on for ten so she will need to reschedule documented in this encounterBrecksville Va / [facility]11-19-2024 NoteMercy Health Anderson Hospital11-18-2024 Miscellaneous Notes* Telephone Encounter - Sherrie [...] Please advise. Sherrie Cortes documented in this encounterBrecksville Va / Crille Hospital11-18-2024 Telephone encounter Note * Telephone Encounter - Sherrie Cortes - 04/10/2024 2:12 PM EST Patient requested this appointment be rescheduled for the end of April. She has been scheduled for 05/19, she is all set. Thank you! Sherrie Cortes [facility]11-18-2024 Telephone encounter Note* Telephone Encounter - Shantel Arce RPh - 04/10/2024 2:07 PM EST SUBQ products (eg, 20% [Cuvitru, Hizentra, Xembify]) or IM products (eg, 16% [GamaSTAN]) intravenously. It would depend upon insurance coverage and would be done as a retail prescription at designated insurance specialty pharmacy. Elpidio McKitrick, PharmD, BCOP [facility] Work Phone: 1(954) 824-779711-18-2024 Telephone encounter Note* Telephone Encounter - Enma [...] appt per pt request Enma Hamm RN [facility]11-18-2024 Telephone encounter Note* Telephone Encounter - Enma Hamm RN - 04/10/2024 12:54 PM EST Called to discuss with pt. She was researching online and found SCIG a weekly subq injection to give herself that is less dose, and has less side effects. Pharmacy/[facility]: please advise Enma Hamm RN [facility]11-18-2024 Telephone encounter Note* Telephone Encounter - Vera Najera MD - 04/10/2024 12:26 PM EST Really sorry - I don't recall the home infusion of IVIG - I think it is safer to give it to her in-house as IV so we can monitor infusion reactions. Sorry if I created a misunderstanding. [facility]11-18-2024 History of Present illness Narrative* [...] 03/05/2021 Hair loss 03/05/2021 Hyperlipidemia (CMS/HCC) 05/31/2014 [facility] 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 02/04/2023 Long-term use of high-risk medication 06/15/2022 Long-term use of Plaquenil 03/05/2021 LPRD (laryngopharyngeal reflux disease) 07/06/2023 Megaloblastic anemia due to vitamin B12 deficiency 03/04/2022 Myalgia 07/06/2023 Obesity, Class III, BMI 40-49.9 (morbid obesity) ([facility]) 09/07/2022 Obstructive sleep apnea syndrome 05/20/2022 Oral lesion 07/06/2023 Pain, hip 07/06/2023 Rash and nonspecific skin eruption 03/05/2021 Steroid-induced osteoporosis ([facility]) 02/04/2023 Somnolence, daytime 05/20/2022 Secondary osteoarthritis of multiple sites 03/05/2021 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 02/04/2023 Swelling of lymph nodes 03/05/2021 Vitamin D deficiency 03/06/2021 Vitamin B12 deficiency 05/31/2014 Pure hypercholesterolemia, unspecified (CMS/[facility]) 08/10/2023 Hoarse 08/10/2023 Thyroid nodule ([facility]) 08/10/2023 Shortness of breath 07/13/2023 Paroxysmal supraventricular tachycardia ([facility]) 07/13/2023 PAC (premature atrial contraction) 07/13/2023 Degenerative disc disease, lumbar 11/08/2023 Paresthesias 11/08/2023 Nipple discharge 11/15/2023 Irregular periods/menstrual cycles 11/15/2023 Facet arthritis of lumbar region 12/15/2023 Resolved Ambulatory Problems Diagnosis Date Noted No Resolved Ambulatory Problems Past Medical History: Diagnosis Date Cervical lymphadenopathy COVID-19 vaccine administered Difficulty walking Fatigue Fibromyalgia, primary GERD (gastroesophageal reflux disease) History of removal of cyst 2012 HTN (hypertension) ([facility]) Hx of abnormal cervical Pap smear Insulin [...] AREA NEEDED ergocalciferol (Vitamin D2) 1.25 MG (38082 UT) capsule Take 50,000 Units by mouth [...] referred from the [facility] documented in this encounterSaint Joseph Hospital [id number] Telephone encounter Note* Telephone Encounter - Sherrie [...] Triage was involved? Please advise. Sherrie Cortes [facility]11-15-2024 NoteMercy Health [facility] Hospital11-15-2024 History of Present illness Narrative* Deisy Jaime LSW - 04/07/2024 9:30 AM EST Patient's name appears on the [facility] First Time Treatment List for a non- oncology treatment. No psychosocial assessment is indicated. BILL Rosenberg Goals of Care Advance Directives are not on file SIGNATURE: JUSTICE Rosenberg PATIENT NAME: Ariadna Haley DATE: April 07, 2024 TIME: 9:31 AM PAGER/CONTACT #: documented in this encounterBrecksville Va / [facility]11-14-2024 Evaluation + Plan note* Assessment & [...] her Raynaud's. All her questions were answered. [facility]11-14-2024 Miscellaneous Notes* Assessment & Plan Note - [...] her questions were answered. documented in this encounterSelect [facility]11-14-2024 History of Present illness Narrative* Hayden Arciniega [...] Interpersonal Safety: Unknown (07/15/2023) Received from [facility] Environment Fear of [...] Assessment and Plan: Problem List Rheumatoid arthritis ([facility]) Relevant Medications ibuprofen (ADVIL,MOTRIN) 200 mg tablet predniSONE (STERAPRED DS) 10 mg tablet pack Systemic lupus erythematosus ([facility]) - Primary Relevant Medications ibuprofen (ADVIL,MOTRIN) 200 [...] orders for this visit: Systemic lupus erythematosus ([facility]) - Vas art doppler lwr bilat mult lev/PVR; Future Cold extremities - [facility] [place], [place] - Vas art doppler lwr bilat mult lev/PVR; Future Pain of lower extremity, unspecified laterality - [facility] - [place], [place] - Vas art doppler lwr bilat mult lev/PVR; Future Rheumatoid arthritis, involving unspecified site, unspecified whether rheumatoid factor present ([facility]) Current smoker 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 Hayden Arciniega MD, ZIA, RPVI, FSVS, FACS [facility] This note was created with the assistance of a speech recognition program. While intending to generate a timely document that accurately reflects the content of the visit, no guarantee can be provided that every grammatical or spelling mistake has been or will be identified or corrected. Thank you for your understanding. documented in this encounterSelect [facility]11-14-2024 Instructions* Patient Instructions* Hayden Arciniega MD - 04/06/2024 9:40 AM EST Are You Ready To Kick The Habit? Free Tobacco Cessation Resources [facility] Services [facility] Tobacco [facility] Centers provide all employees with free tobacco cessation services that include: Counseling to understand nicotine addiction Education about medications that can help you successfully quit Assistance with developing a plan to quit Call to set up an individual appointment or find out when group classes will be held: [facility]: [phone] : [phone] [facility]: [phone] [facility]: [phone] Quit Smoking Action Plan and Resources [facility] offers an eight-week, online smoking cessation plan to all [facility] employees, regardless of whether [place] is your medical insurance provider. Go to [email or web address]/employeewellness and click the Health Risk Assessment and Resources link to get started. In the Cipej7Pbrpqy menu, click Action Plans instead of Health Risk Assessment to access the Quit Smoking Action Plan. Additional smoking cessation resources are also available to all [facility] employees on the Fjsmj5Tjznck web page at www.[email or web address] Eight.com/quitsmoking. [place] Tobacco Cessation Program If [place] is your medical insurance provider, there are more free resources available to you, including: No copays or deductibles on local tobacco cessation counseling services to help you quit Prescription assistance for tobacco cessation medications to help you quit For details about the tobacco cessation program available to [place] members, go to www.glen carbonMoJoe Brewing Companybarney [facility].Remote (Search: Tobacco Cessation Program). [place] Tobacco Quit Line 6-311-EAFQ-NOW ( ) is a toll-free, telephonic service that helps [place] residents quit smoking and using tobacco. It is staffed by experts who tailor a quit plan for you and provide you with advice. [place] Tobacco Quit Line 0-678-YKMH-NOW ( ) is a toll-free, telephonic service that helps [place] residents quit smoking and using tobacco. It is staffed by experts who tailor a quit plan for you and provide you with advice. Two weeks of nicotine replacement therapy may be provided at no charge, if needed. Additional Resources These national organizations also offer free information and resources to help you quit tobacco: [place] [employer]--www.cancer.org/healthy/stayawayfromtobacco [place] Heart Association--www.heart.org (Search: Quit Smoking) Centers for Disease Control and Prevention--www.cdc.gov/tobacco [place] Lung Association--www.lungusa.org documented in this encounterSelect [facility]11-11-2024 Telephone encounter Note* Telephone Encounter - Marky Mike DO - 04/03/2024 9:36 AM EST Changed terbinafine to itraconazole at pt request. [facility] [id number] Miscellaneous Notes* Telephone Encounter - Marky Mike DO - 04/03/2024 9:36 AM EST Changed terbinafine to itraconazole at pt request. documented in this encounterSaint Joseph Hospital WestEyaiutkedo09-75-2002 Telephone encounter Note* Telephone Encounter - Lynne Ni MD - 04/02/2024 2:36 PM EST Please Call patient if Marcelino note not [...] NI Prescription(s) as above. Please process accordingly. Lnyne Ni MD [facility]11-10-2024 Miscellaneous Notes* Telephone Encounter - Lynne Ni MD - 04/02/2024 2:36 PM EST Please Call patient if Marcelino note not read to review results/released to My Chart if tests completed at F: Mildly high normal wbc, glucose, one borderline [...] accordingly. Lynne Ni MD documented in this encounterBrecksville [facility]11-10-2024 History of Present illness Narrative* Marky Mikie Rashid, DO - 04/02/2024 1:30 PM EST HPI: [...] with her immunosuppressive therapy. documented in this encounterSaint Joseph Hospital [id number] Instructions* Patient Instructions* Vera Najrea MD - 04/01/2024 4:28 PM EST Obtain body fluid culture from [facility]. B12 shot today and every 4 weeks. Continue Folic acid. Frequent infections plan IVIG for hypogammaglobulinemia Start when approved. RTC 3 months repeat labs same day. IVIG same day. documented in this encounterBrecksville Va [facility]11-08-2024 NoteMer[facility]11-08-2024 History of Present illness Narrative* Ashly Castillo - 03/31/2024 12:29 PM EST CMN RECEIVED BY [employer] VIA FAX, COMPLETED, AND PLACED IN PROVIDER MAILBOX FOR SIGNATURE Ashly Castillo Pastry Baker II 03/31/2024 [employer] SENDING CMN: JOSH SIGNED AND DATED GENOVEVA, FAXED TO DME & CONFIRMATION PAGE RECEIVED: 04/11/2024 documented in this encounterBrecksville Va / [facility]11-07-2024 Telephone encounter Note * Telephone Encounter - Mae Elaine - 03/30/2024 8:01 AM EST Pt is scheduled and instructions were sent thru my chart. [facility]11-07-2024 Miscellaneous Notes* Telephone Encounter - Mae [...] note were not included. documented in this encounterBrecksville [facility]11-06-2024 Telephone encounter Note * Telephone Encounter - Mae Elaine - 03/29/2024 9:02 AM EST Im for pt- saved time on 04/18 7:45 Also sent mychart msg. dm [facility]11-04-2024 NoteMercy Health Anderson Hospital11-04-2024 History of Present illness Narrative* Vera Najera MD - 03/27/2024 3:03 PM EST Images from the original note were not included. NAME: Araidna Haley [facility] NO.: [id number] DATE OF SERVICE: March 27, 2024 (Marquis) Some elements in this clinic note that are critical to medical decision making have been carefully reviewed and included from a prior clinic note dated: December 27, 2023 (Liz) Referring Provider: Dr. Manuel Ferris Additional Clinicians involved in Ariadna Haley's care: VIRTUAL VISIT PROGRESS NOTE This is a virtual visit using [employer] Superintendent Video Call. It required patient- provider interaction for the medical decision making as documented below. I have communicated my name and active licensure. The patient's identity and physical location wereverified at the time of this visit. Either the patient or their legal sales representative groceries has been informed of the risks and [...] noted. PLAN: Obtain body fluid culture from [facility]. B12 shot today and every 4 [...] injections. Shefollows with multiple doctors including and city planning engineer, project consultant, sampling expert and PCP. She has been told they [...] decreasing. Initial Visit, March 04, 2022: Ariadna Torres Jose Carlosfrancisco javier presents today Hematology [...] CPE Hematology and Oncology Services Provided at: [place], [place] CC: Manuel Ferris MD [address] [facility] [address] documented in this encounterBrecksville Va [facility]10-31-2024 History of Present illness Narrative* KELVIN [...] Ambulatory Problems Diagnosis Date Noted Autoimmune disease ([facility]) 06/01/2023 Fibromyalgia 06/01/2023 Autonomic dysfunction 06/01/2023 Dizziness [...] Tobacco use disorder 07/06/2023 Cytomegalovirus infection (HCC) ([facility]) 07/06/2023 Depression, recurrent ([facility]) 06/09/2023 Discoid lupus erythematosus (CMS/HCC) 02/14/2022 Disturbance of skin sensation 07/06/2023 Elevated sed rate 03/05/2021 High total serum IgM 03/05/2021 Enthesopathy of hip region 07/06/2023 Essential hypertension (CMS/HCC) 06/09/2023 Excessive and frequent menstruation with irregular cycle 09/24/2022 Family history of Crohn's disease 03/05/2021 Hair loss 03/05/2021 Hyperlipidemia (CMS/HCC) 05/31/2014 long term 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 02/04/2023 Long-term [...] Chronic laryngopharyngitis COVID-19 vaccine administered x 2 (L4 Mobile) Difficulty walking Fatigue Fibromyalgia, primary GERD (gastroesophageal [...] behalf of: KELVIN Cabrera documented in this encounterSaint Joseph Hospital [id number] Nurse Note* Stacy Gutiérrez MA - 03/23/2024 10:16 AM EDT Patient Identification confirmed: yes. Injection given and documented on JUL per provider order. Stacy Gutiérrez MA [facility]10-31-2024 Nurse Note* Stacy Gutiérrez MA - 03/23/2024 10:16 AM EDT Patient Identification confirmed: yes. Injection given and documented on JUL per provider order. Stacy Gutiérrez MA documented in this encounterBrecksville Va / [facility]10-28-2024 Telephone encounter Note * Telephone Encounter - Mae Elaine - 03/20/2024 12:37 PM EDT Images from the original note were not included. [facility]10-26-2024 History of Present illness Narrative* Lynne [...] visit. Either the patient or their legal sales representative groceries has been informed of the risks and [...] Due to see vascular soon. Reports pain 5-10/31. Has hips/back stiffness minimal AM stiffness. Feels [...] jail steroids/abnormal bmd, take vitamin D script once [...] neurology/on metoprolol for POTs, avoid aggravating triggers, 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 pain recommendations per primary care provider/pain clinic/patient [...] see ophthalmology, steroids/prednisone 10mg daily/ [facility]/try weaning off, see derm/?eval recurrent [...] Due for eye exam. Labs sent to [facility]/completed in 06/2021 (no results faxed to office, [...] COVID-19 original vaccine, age 12+ yr, monovalent (Joppel - PURPLE TOP) 09/28/2020 10/19/2020 05/26/2021 COVID-19 vaccine, age 12+ yr (PFIZER-BIONTECH COMIRNATY) 02/23/2023 COVID-19 vaccine, age 12+ yr, bivalent (Joppel) 02/08/2022 Pneumovax no Flu shot no Tetanus [...] likely reactive, continue vitamin b12 every month 4/9/24 high wbc 13.43, glucose 160, esr 37;normal [...] (33);NL cbc, cmp, negative hla b27; Outside [place] 06/2021 low vitamin D 16, vitamin b12-307;high [...] lupus erythematosus with other organ involvement ([facility]) (primary encounter diagnosis) M79.7 Fibromyalgia R76.8 CHRISTIAN positive Q79.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 Elevated sed rate E55.9 Vitamin D deficiency 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 M54.42, M54.41, G89.29 Chronic bilateral low back pain with bilateral sciatica M79.674, M79.675, G89.29 Chronic pain of toes of both feet Z79.899 Long-term use of high-risk medication Z79.52 long term 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 M79.641, M79.642 Bilateral hand pain M32.9 Systemic lupus erythematosus, unspecified SLE type, unspecified organ involvement status ([facility]) E53.8 Vitamin B12 deficiency L93.0 Discoid lupus [...] measures, may consider osteoporosis treatment if on 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 steroids/abnormal bmd, take vitamin D script once [...] pain60%;10/24/21 KRISTEN 0, pain 40-80%;March 05, 2021 RKISTEN 0, pain 20-70%; May apply over the [...] (200mg) daily with a meal Please see housekeeping attendant every 6-12months while on Hydroxychloroquine. Start azathioprine [...] touching your toes, sit-ups, using row machine 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 pain recommendations per primary care provider/pain clinic [...] video & audio (virtual) or phone or [id number] patient care, completing clinical documentation, obtaining and/or [...] Workers' Compensation? No Do you need an home care scheduler? No [facility] MYCHART ZOOM MESSAGE Question 03/16/2024 7:44 PM [...] Percentile (range: 0 - 100) 1 2 [facility] PROMIS CAT V1.0 - FATIGUE-28 DAYS Question [...] my health Strongly Agree documented in this encounterBrecksville Va / [facility]ille Hospital10-26-2024 NoteMercy Health Anderson Hospital10-26-2024 Instructions* Patient Instructions* Lynne Ni MD [...] (200mg) daily with a meal Please see housekeeping attendant every 6-12months while on Hydroxychloroquine. azathioprine daily [...] touching your toes, sit-ups, using row machine 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 pain recommendations per primary care provider/pain clinic [...] your usual activities immediately. documented in this encounterBrecksville Va / [facility]10-25-2024 Telephone encounter Note * Telephone Encounter [...] above. Please process accordingly. Lynne Ni MD [facility]10-25-2024 Miscellaneous Notes* Telephone Encounter - Lynne [...] Department VIDEO SPEC EST 03/18/2024 9:00 AM [facility] Last Ophthalmology Check for Plaquenil (Hydroxychloroquine) [...] CULTURE [SQBLCUL] 01/27/24 04/27/24 01/27/24 Auth. provider: Alahji Head DO Assoc. diagnoses: Pseudomonas infection BLOOD CULTURE [SQBLCUL] 01/27/24 04/27/24 01/27/24 Auth. provider: Alhaji Head DO Assoc. diagnoses: Pseudomonas infection documented in this encounterBrecksville Va / [facility]10-25-2024 Telephone encounter Note * Telephone Encounter [...] VIDEO SPEC EST 03/18/2024 9:00 AM [facility] Last Ophthalmology Check for Plaquenil (Hydroxychloroquine) [...] WESTERGREN [SQWSR] 1/ Every 3 months 06/09/24 06/10/23 02/21/24 Auth. [...] Alhaji Head DO Assoc. diagnoses: Pseudomonas infection [facility]10-24-2024 History of Present illness Narrative* Luan [...] Ambulatory Problems Diagnosis Date Noted Autoimmune disease ([facility]) 06/01/2023 Fibromyalgia 06/01/2023 Autonomic dysfunction 06/01/2023 Dizziness [...] Tobacco use disorder 07/06/2023 Cytomegalovirus infection (HCC) ([facility] 07/06/2023 Depression, recurrent ([facility]) 06/09/2023 Discoid lupus erythematosus ([facility]) 02/14/2022 Disturbance of skin sensation 07/06/2023 Elevated sed rate 03/05/2021 High total serum IgM 03/05/2021 Enthesopathy of hip region 07/06/2023 Essential hypertension ([facility]) 06/09/2023 Excessive and frequent menstruation with irregular cycle 09/24/2022 Family history of Crohn's disease 03/05/2021 Hair loss 03/05/2021 Hyperlipidemia ([facility]) 05/31/2014 long term 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 02/04/2023 Long-term use of high-risk medication 06/15/2022 Long-term use of Plaquenil 03/05/2021 LPRD (laryngopharyngeal reflux disease) 07/06/2023 Megaloblastic anemia due to vitamin B12 deficiency 03/04/2022 Myalgia 07/06/2023 Obesity, Class III, BMI 40-49.9 (morbid obesity) ([facility]) 09/07/2022 Obstructive sleep apnea syndrome 05/20/2022 Oral [...] removal of cyst 2012 HTN (hypertension) (CMS/[facility]) Hx of abnormal cervical Pap smear Insulin resistance Laryngopharyngeal reflux disease Lupus Numbness Oral thrush Prediabetes Sleep apnea Weakness of limb HISTORY PAST MEDICAL HISTORY SOCIAL HISTORY Past Medical History: Diagnosis Date Anxiety Cervical lymphadenopathy Chronic laryngopharyngitis COVID-19 vaccine administered x 2 (L4 Mobile) Difficulty walking Fatigue Fibromyalgia, primary GERD (gastroesophageal reflux disease) History of removal of cyst 2012 tailbone x2 HTN (hypertension) ([facility]) Hx of abnormal cervical Pap smear Hyperlipidemia ([facility]) Insulin resistance Laryngopharyngeal reflux disease Lupus Numbness [...] nursing note reviewed. Exam conducted with a centrifugal station operator present. Vitals: Estimated body mass index is [...] Disease with Dr. Kelsey and Specialist at [facility]. Patient voiced that Dr. Kelsey recommended surgery, but patient feels that maybe excessive. Specialist at [facility] suggested monitoring. Patient has had mammogram. Patient does not put anything on her breast.Ruled out Mondor's Breast concerns. Discussed Lincoln Oil at night and Vitamin E lotion. Patient voiced that her breast feel brambila and heavier. Discussed growth of breast and proper support. Breastare not hot nor warm to the touch. Patient to obtain bilateral breast ultrasound. Patient to followup with routine annual appointment and as needed. Documented by Alicia Christine LPN on behalf of: Luan Valdivia DO documented in this encounterSaint Joseph Hospital [id number] NoteMercy Health Anderson Hospital10-16-[address] [facility] Note Chief Complaint: New patient here to establish care. Ref from Gay Enciso CNP for hypertension. Former [facility] cardiology patient. Had echo a few weeks ago at [facility]. Says her BP is very low [...] past several months. She has seen 2-3 head lineman in the past. She has undergone a [...] on any stimulants including caffeinated beverages, alcohol, svnc-fav-msfdmit Sudafed etc. If her symptoms of palpitations persist, particular if she has lightheadedness or dizziness, head upright tilt table test may be reasonable to evaluate for possible dysautonomia's I discussed the side effects and risks of long-term steroid therapy and recommended she discuss with her project consultant weaning off soon as possible Given her morbid obesity, her current symptoms and comorbidities are likely related to excessive weight: I encouraged physical activity, attempts to lose weigh (more content not included)...[facility] 03-07-2024 NoteMercy Health Anderson Hospital10-15-2024 History of Present illness Narrative* Lee Friedman - 03/07/2024 8:35 AM EDT CMN RECEIVED BY [employer] VIA FAX, COMPLETED, AND PLACED IN PROVIDER MAILBOX FOR SIGNATURE Lee Friedman Coordinator III 03.07.2024 [employer] SENDING CMN: Josh SIGNED AND DATED CMN, FAXED TO [employer] & CONFIRMATION PAGE RECEIVED: 03.07.2024 documented in this encounterBrecksville Va / [facility]10-01-2024 Telephone encounter Note * Telephone Encounter [...] 'too terrified to drive that far to [facility].' Further reviewed the reasoning behind the visit needing to be in-person and stated that I would have our care assistant reach out if she is willingto accept an in-person appt. PT requested that I review with our clinical team if this can be a VV before she schedules. I let her know I will do so and be in touch. She had no further questions at this time. Luda Vargas Genetic Counseling Investigator Welfare Additional: see [facility] for documentation of scheduling and cancellation with genetics in 2021 [facility]10-01-2024 Miscellaneous Notes* Telephone Encounter - Luda [...] terrified to drive that far to [facility] [place].' Further reviewed the reasoning behind the visit needing to be in-person and stated that I would have our care assistant reach out if she is willingto accept an in-person appt. PT requested that I review with our clinical team if this can be a VV before she schedules. I let her know I will do so and be in touch. She had no further questions at this time. Luda Vargas Genetic Counseling Investigator Welfare Additional: see [facility] for documentation of scheduling and cancellation with genetics in 2021 documented in this encounterBrecksville Va / [facility]09-30-2024 Nurse Note* Kenzie Shannon MA - 02/21/2024 11:13 AM EDT Patient Identification confirmed: yes. Injection given and documented on MAR per provider order. Kenzie Shannon MA [facility]09-30-2024 Nurse Note* Kenzie Shannon MA - 02/21/2024 11:13 AM EDT Patient Identification confirmed: yes. Injection given and documented on JUL per provider order. Kenzie Shannon MA documented in this encounterBrecksville Va / Crille Hospital09-27-2024 Telephone encounter Note * Telephone Encounter - Sherrie Jimenes - 02/18/2024 1:26 PM EDT Patient is calling the [place] office requesting Dr. Ni to place a referral to genetics. Please advise. [facility]09-27-2024 Miscellaneous Notes* Telephone Encounter - Sherrie Jimenes - 02/18/2024 1:26 PM EDT Patient is calling the [place] office requesting Dr. Ni to place a referral to genetics. Please advise. documented in this encounterBrecksville Va / [facility]ille Hospital09-24-2024 Telephone encounter Note * Telephone Encounter - Hansa Javed LPN - 02/15/2024 9:49 AM EDT PAP ORDER FAXED TO [facility] WITH DEMOGRAPHICS, OFFICE NOTES WITH CONFIRMATON NOTED. [facility]09-24-2024 Miscellaneous Notes* Telephone Encounter - Hansa Javed LPN - 02/15/2024 9:49 AM EDT PAP ORDER FAXED TO [facility] WITH DEMOGRAPHICS, OFFICE NOTES WITH CONFIRMATON NOTED. documented in this encounterBrecksville Va / [facility]ille Hospital09-23-2024 History of Present illness Narrative* Elton (Librarian Special Library), Luda - 02/14/2024 2:32 PM EDT [facility] [...] been reviewed prior to dispensing the medication. Scaleman Assessment Patient confirmed: Yes Med/dose confirmed: Yes Missed doses: No Estimated days supply on hand: 1 Next cycle/dose due: 02/17/24 Copay amount: 0 Payment confirmed: Yes Delivery method: FedEx Signature required: Waived on patient request Delivery address: [address] [place], [place] [address], [place] Delivery date: 02/17/24 Questions or concerns [...] facility-administered medications on file prior to visit. [facility] SPECIALTY CLINICAL ASSESSMENT [...] efficacy and/or no longer tolerated. Luda Vale CPhT [facility] [phone] documented in this encounterBrecksville Va / Crille Hospital09-23-2024 History of Present illness Narrative* Elton EpsteinLibrarian Special LibraryLuda Benz - 02/14/2024 2:26 PM EDT Benefits investigation was conducted, indicating that a re-authorization is required for [employer]. PA was initiated and pending review. Plan Name: Keesha Armstrong Balderrama: [id number] Luda Vale CPhT [facility] [phone] documented in this encounterBrecksville Va / Crille Hospital09-23-2024 Instructions* Patient Instructions* Lexus Heck APRN.MANAGER EXPORT - 02/14/2024 8:03 AM EDT Images from the original note were not included. Your most recent body mass index (BMI) that we have on record is 43.08 kg/m2. Obstructive sleep apnea (JOSE RAFAEL) worsens with an increase in weight; reduction in weight may improve or resolve your JOSE RAFAEL. Ifyou are not already seeking treatment, there are resources available at the [facility] such as a nutrition consultation or referral to weight management programs at our [facility] [place]. Please let us know if we can [...] deductible,co-payments, and out of pocket expenses. DME: [facility] [phone] - Remember to clean your mask and equipment regularly, as directed. - Avoid use of ozone community recreation programmer, SoClean devices, or UV cleaning devices - [...] the central scheduling system for the [facility] [place] at [phone]. [facility] now offers direct scheduling for patients to schedule appointments. Virtual visits are also available. Call the office at [phone], option #5 for questions. documented in this encounterBrecksville Va / [facility]ille Hospital09-23-2024 History of Present illness Narrative* Lexus Heck APRN.CNP - 02/14/2024 8:00 AM EDT Images from the original note were not included. [facility] Virtual Visit Follow up/ Established patient visit Date of last visit : 07/27/2022 I have communicated my name and active licensure. The patient's identity and physical location wereverified at the time of this visit. Either the patient or their legal sales representative groceries has been informed of the risks and [...] Return Visit in 6 months. Lexus Heck APRN.CNP Interval history : Here for follow up for sleep apnea management. SLEEP APNEA Sleep apnea type : JOSE RAFAEL Most Recent Apnea-Hypopnea Index (AHI): 5.3 (HSAT scored 4 %) Treatment : PAP therapy DME: Josh MOJICA fax: [phone] YUNIOR ph: [phone] PAP History: Current PAP settin-15 cm H2O. [...] are sorted in reverse-chronological order 04/12/2022 07/23/2022 [place] Sleepiness Scale Score 4 (No clinically significant [...] Follow up 12 months. Lexus Heck APRN.MANAGER EXPORT documented in this encounterBrecksville [facility]09-[facility] History of Present illness Narrative* Zita Cuellar, CARISSA - 02/09/2024 8:00 AM EDT Images from the original note were not included. CHIEF COMPLAINT REASON FOR VISIT : leg pain HPI: Ariadna Haley is a 43 y.o. female who presents for [facility] audiovisit. She is at home. She [...] Chronic laryngopharyngitis COVID-19 vaccine administered x 2 (L4 Mobile) Difficulty walking Fatigue Fibromyalgia, primary GERD (gastroesophageal reflux disease) History of removal of cyst 2012 tailbone x2 HTN (hypertension) ([facility] Hx of abnormal cervical Pap smear Hyperlipidemia ([facility]) Insulin resistance Laryngopharyngeal reflux disease Lupus ([facility]) Numbness Oral lesion Oral thrush Prediabetes Sleep [...] lung issue, 3 daughters Diabetes Maternal Grandmother Lisandro Heart failure Maternal Grandmother Lisandro Rheum arthritis Maternal Grandmother Lisandro Depression: Not at risk (12/27/2023) [facility] PHQ-2 PHQ-2 score: 1 REVIEW OF [...] patient, and coordinating care. documented in this encounterSaint Joseph Hospital [id number] NoteHNO ID: [id number] Author: ALHAJI HEAD, DO Service: ? Author Type: Physician Type: Progress Notes Filed: 01/27/2024 16:54 Note Text: VIRTUAL VISIT PROGRESS NOTE This is a virtual visit using Fabrika Online[employer] Video Visit. It required patient-provider interaction for the medical decision making as documented below. I have communicated my name and active licensure. The patient's identity and physical location were verified at the time of this visit. Either the patient or their legal sales representative groceries has been informed of the risks and [...] of green drainage. She saw her OB/ wholesale loan processor. This was thought to be secondary to [...] SOB/WHEEZING, and NO DYSPHAG (more content not included)...[facility]09-05-2024 History of Present illness Narrative* Alhaji Head DO - 01/27/2024 10:10 AM EDT Images from the original note were not included. VIRTUAL VISIT PROGRESS NOTE This is a virtual visit using [employer] Video Visit. It required patient- provider interaction for the medical decision making as documented below. I have communicated my name and active licensure. The patient's identity and physical location wereverified at the time of this visit. Either the patient or their legal sales representative groceries has been informed of the risks and [...] of green drainage. She saw her OB/ wholesale loan processor. This was thought to be secondary to [...] thrush Alhaji Head DO documented in this encounterBrecksville [facility]09-03-2024 Nurse Note* Margret Cuenca MA - 01/25/2024 11:30 AM EDT Patient Identification confirmed: yes. Injection given and documented on MAR per provider order. Margret Cuenca MA [facility]09-03-2024 Nurse Note* Margret Cuenca MA - 01/25/2024 11:30 AM EDT Patient Identification confirmed: yes. Injection given and documented on MAR per provider order. Margret Cuenca MA documented in this encounterBrecksville [facility]08-27-2024 History of Present illness Narrative* Arianne [...] outcomes. Aidee Quintanilla, RolandD Clinical Pharmacist, [employer] [facility] ; Pool: P [facility] Pool #: [id number] Scaleman Assessment Patient confirmed: Yes Med/dose confirmed: Yes Supplies needed: No supplies needed Missed doses: No Estimated days supply on hand: (At least 1 dose) Next cycle/dose due: 01/20/24 Copay amount: 0 Payment confirmed: Yes Delivery method: FedEx Signature required: Waived on patient request Delivery address: [address] [place] [address] Delivery date: 01/21/24 Questions or concerns for [...] facility-administered medications on file prior to visit. [facility] CLINICAL ASSESSMENT - INFLAMMATORY CONDITIONS [...] no longer tolerated. Arianne Mckinley CPhT, Inflammatory/Allergy [facility] [phone] documented in this encounterBrecksville Va / [facility]08-21-2024 Telephone encounter Note * Telephone Encounter - Krista Braswell MA - 01/12/2024 10:45 AM EDT Pt has been notified via FixMeStick. [facility]08-21-2024 Miscellaneous Notes* Telephone Encounter - Krista Fonseca MA - 01/12/2024 10:45 AM EDT Pt has been notified via FixMeStick. * Telephone Encounter - Lynne Ni MD [...] months 06/09/24 06/10/23 11/24/23 Auth. provider: Vera Njaera MD Assoc. diagnoses: Elevated sed rate Open [...] Assoc. diagnoses: Screening-pulmonary TB documented in this encounterBrecksville [facility]08-21-2024 Telephone encounter Note * Telephone Encounter [...] above. Please process accordingly. Lynne Ni MD [facility]08-21-2024 Telephone encounter Note* Telephone Encounter - Beatriz Sanchez PARASITOLOGIST - 01/12/2024 7:25 AM EDT Images from [...] Lynne Ni MD Assoc. diagnoses: Screening-pulmonary TB [facility]08-08-2024 Telephone encounter Note* Telephone Encounter - Krista Braswell MA - 12/30/2023 1:34 PM EDT Spoke to pt aware of results and recommendations. [facility]08-08-2024 Miscellaneous Notes* Telephone Encounter - Krista [...] vitamin b12 every month documented in this encounterBrecksville Va / [facility]08-08-2024 Telephone encounter Note * Telephone Encounter [...] likely reactive, continue vitamin b12 every month [facility]08-05-2024 Telephone encounter Note* Telephone Encounter - Enma Hamm RN - 12/27/2023 12:49 PM EDT Pt informed of MM message and denies any questions, needs or concerns at this time. Appointments verified. Enma Hamm RN [facility]08-05-2024 Miscellaneous Notes* Telephone Encounter - Enma Hamm RN - 12/27/2023 12:49 PM EDT Pt informed of MM message and denies any questions, needs or concerns at this time. Appointments verified. Enma Hamm RN * Telephone Encounter - Neda Hill PA-C - 12/27/2023 12:44 PM EDT Please call and inform the patient that I reviewed her [facility] records and there is no evidence of a blood clot and she does not need to be on blood thinners. Neda Hill PA-C documented in this encounterBrecksville [facility]08-05-2024 Telephone encounter Note * Telephone Encounter - Neda Hill PA-C - 12/27/2023 12:44 PM EDT Please call and inform the patient that I reviewed her [facility] records and there is no evidence of a blood clot and she does not need to be on blood thinners. Neda Hill PA-C [facility] Work Phone: [phone] [phone] Nurse Note* Margret Cuenca MA - 12/27/2023 11:44 AM EDT Patient Identification confirmed: yes. Injection given and documented on MAR per provider order. Margret Cuenca MA [facility]08-05-2024 Nurse Note* Margret Cuenca MA - 12/27/2023 11:44 AM EDT Patient Identification confirmed: yes. Injection given and documented on MAR per provider order. Margret Cuenca MA documented in this encounterBrecksville Va / [facility]08-05-2024 History of Present illness Narrative* Neda Hill PA-C - 12/27/2023 11:30 AM EDT Images from the original note were not included. NAME: Ariadna Haley [facility] NO.: [id number] DATE OF SERVICE: December 27, 2023 (Liz) Some elements in this clinic note that are critical to medical decision making have been carefully reviewed and included from a prior clinic note dated: September 09, 2023 (Marquis) Referring Provider: Dr. Manuel Ferris Additional Clinicians involved in Ariadnasusan Haley's care: DIAGNOSIS: Multiple symptoms ASSESSMENT: 43 [...] labs 1 week before. Request records from [facility] from PE/elevated d-dimer Frequent infections and [...] Updated Visit, August 27, 2022: Ariadna Melissa Branchfrancisco javier returns for follow-up and B12 injection. She has missed a few B12 injections. Shefollows with multiple doctors including and city planning engineer, project consultant, sampling expert and PCP. She has been told they [...] which included preparing to see the patient, dulo-qd-fmmq patient care, completing clinical documentation, obtaining and/or reviewing separately obtained history, performing a medically appropriate examination, counseling and educating the pat ient/family/caregiver, ordering medications, tests, or procedures, communicating with other HCPs (not separately reported), independently interpreting results (not separately reported), communicatingresults to the patient/family/caregiver, and care coordination (not separately reported). Neda Hill PA-C Hematology and Oncology Services Provided at: [place], [place] CC: Manuel Ferris MD [address] [facility] [address] documented in this encounterBrecksville Va [facility]07-22-2024 History of Present illness Narrative* Elton (Librarian Special Library)Luda - 12/13/2023 11:44 AM EDT [facility] [...] laboratory parameters, disease state markers and outcomes. Scaleman Assessment Patient confirmed: Yes Med/dose confirmed: Yes Missed doses: No Estimated days supply on hand: 1 Next cycle/dose due: 12/16/23 Copay amount: 0 Payment confirmed: Yes Delivery method: FedEx Signature required: Waived on patient request Delivery address: [address] [place] [address] Delivery date: 12/17/23 Questions or concerns for [...] facility-administered medications on file prior to visit. [facility] CLINICAL ASSESSMENT - INFLAMMATORY CONDITIONS V6: Assessment to use: Refill [facility] VACCINE INFORMATION [facility] TREATMENT PLAN INFORMATION Luda Vale CPhT [facility] [phone] documented in this encounterBrecksville Va / [facility]07-08-2024 Nurse Note* Stacy Gutiérrez MA - 11/29/2023 1:47 PM EDT Patient Identification confirmed: yes. Injection given and documented on MAR per provider order. Stacy Gutiérrez MA [facility]07-08-2024 Nurse Note* Stacy Gutiérrez MA - 11/29/2023 1:47 PM EDT Patient Identification confirmed: yes. Injection given and documented on MAR per provider order. Stacy Gutiérrez MA documented in this encounterBrecksville Va / [facility]07-05-2024 Telephone encounter Note * Telephone Encounter - Katherin Schneider RN - 11/26/2023 11:34 AM EDT Please sign pended script Maryam Schneider RN [facility]07-05-2024 Miscellaneous Notes* Telephone Encounter - Katherin Schneider RN - 11/26/2023 11:34 AM EDT Please sign pended script Maryam Schneider RN documented in this encounterBrecksville Va / [facility]06-24-2024 History of Present illness Narrative* Dwight, Aidee, [facility] - 11/15/2023 1:00 PM EDT [facility] [...] laboratory parameters, disease state markers and outcomes. Scaleman Assessment Patient confirmed: Yes Med/dose confirmed: Yes Missed doses: No Estimated days supply on hand: 1 Next cycle/dose due: 11/18/23 Copay amount: 0 Payment confirmed: Yes Delivery method: FedEx Signature required: Waived on patient request Delivery address: [address] [place] [address] Delivery date: 11/17/23 Questions or concerns for [...] facility-administered medications on file prior to visit. [facility] Visit Assessment - Inflammatory [...] Yes Aidee Quintanilla, PharmD Clinical Pharmacist, [employer] [facility] ; Pool: P [facility] Pool #: [id number] documented in this encounterBrecksville Va / [facility]06-20-2024 Telephone encounter Note * Telephone Encounter [...] above. Please process accordingly. Lynne Ni MD [facility]06-20-2024 Miscellaneous Notes* Telephone Encounter - Lynne [...] High total serum IgM documented in this encounterBrecksville Va / [facility]06-20-2024 Telephone encounter Note * Telephone Encounter [...] Ordered Last Rel. CBC + DIFF [SQCBCDIF] 35 Every 3 months 06/02/24 06/03/23 08/31/23 Auth. [...] vitamin B12 deficiency, High total serum IgM [facility]06-06-2024 Telephone encounter Note* Telephone Encounter - Karina Morales RN - 10/28/2023 1:33 PM EDT Pt read FixMeStick message. [facility]06-06-2024 Miscellaneous Notes* Telephone Encounter - Karina Morales RN - 10/28/2023 1:33 PM EDT Pt read FixMeStick message. * Telephone Encounter - Lynne Ni [...] soon! Warm regards, :) documented in this encounterBrecksville Va / [facility]06-06-2024 Telephone encounter Note * Telephone Encounter [...] you feel better soon! Warm regards, :) [facility]06-05-2024 Nurse Note* Margret Cuenca MA - 10/27/2023 2:43 PM EDT Patient Identification confirmed: yes. Injection given and documented on MAR per provider order. Margret Cuenca MA [facility]06-05-2024 Nurse Note* Margret Cuenca MA - 10/27/2023 2:43 PM EDT Patient Identification confirmed: yes. Injection given and documented on MAR per provider order. Margret Cuenca MA documented in this encounterBrecksville Va [facility]05-14-2024 History of Present illness Narrative* Lynne [...] visit. Either the patient or their legal sales representative groceries has been informed of the risks and [...] COVID-19 original vaccine, age 12+ yr, monovalent (Joppel - PURPLE TOP) 09/28/2020 10/19/2020 05/26/2021 COVID-19 vaccine, age 12+ yr, 2022- season (Joppel) 02/23/2023 COVID-19 vaccine, age 12+ yr, bivalent (Joppel) 02/08/2022 Pneumovax no Flu shot no Tetanus [...] (33);NL cbc, cmp, negative hla b27; Outside [place] 06/2021 low vitamin D 16, vitamin b12-307;high [...] see GI and Infectious disease soon. Thinks bellalosec made her have diarrhea. 08/31/23 high wbc [...] jail steroids/abnormal bmd, take vitamin D script once [...] patient Provided printed info 02/04/23 precert for jamarlysta 10/05/23 check nonfasting labs every 3months 10/05/23 [...] (200mg) daily with a meal Please see housekeeping attendant every 6-12months while on Hydroxychloroquine. Start azathioprine [...] video & audio (virtual) or phone or komc-tj-rpth patient care, completing clinical documentation, obtaining and/or [...] Workers' Compensation? No Do you need an home care scheduler? No [facility] MYCHART ZOOM MESSAGE Question 2023 11:04 PM [...] (range: 0 - 100) 2 2 3 [facility] PROMIS CAT V1.0 - FATIGUE-28 DAYS Question 2023 11:05 PM EDT - Filed by Patient 05/24/2023 8:33 PM EDT - Filed by Patient 04/26/2023 3:45 PM EDT - Filed by Patient PROMIS Fatigue T-Score (range: 10 - 90) 59 (mild) Abnormal 62 (moderate) Abnormal 72 (severe) Abnormal PROMIS Fatigue Percentile (range: 0 - 100) 18 12 1 [facility] PROMIS CAT V1.1-PAIN INTERFERENCE-28 DAYS Question 2023 11:06 PM EDT - Filed by Patient 05/24/2023 8:35 PM EDT - Filed by Patient 04/26/2023 3:47 PM EDT - Filed by Patient PROMIS Pain Interference T-Score (range: 10 - 90) (range: 10 - 90) 66 (moderate) Abnormal 70 (moderate) Abnormal 68 (moderate) Abnormal PROMIS Pain Interference Percentile (range: 0 - 100) 5 2 4 [facility] SLAQ QUESTIONNAIRE Question 2023 11:10 PM EDT [...] SLAQ Score (range: 0 - 47) 15 [facility] PROVIDER UNDERSTANDING CURRENT HEALTH RHEUMATOLOGY Question 2023 [...] 3 (WITHIN +/- 5) documented in this encounterBrecksville Va [facility]05-09-2024 Nurse Note* Renea Schneider MA - 09/30/2023 10:53 AM EDT Patient Identification confirmed: yes. Injection given and documented on JUL per provider order. Renea Schneider MA [facility]05-01-2024 Evaluation note* Author [facility] Authored September 22, 2023 2:55pm 42-year-old [...] omeprazole to pantoprazole and monitor symptoms [facility] Work Phone: 1(629) 294-365104-18-2024 Instructions* Patient Instructions* Vera Najera MD - 09/09/2023 4:47 PM EDT Follow up in 13 Weeks - labs 1 week before. B12 shot every 4 weeks. Continue Folic acid. documented in this encounterBrecksville Va / [facility]04-18-2024 History of Present illness Narrative* Vera Najera MD - 09/09/2023 4:30 PM EDT NAME: Jose Carlosfrancisco javierAriadna CLINIC NO.: [id number] DATE OF SERVICE: September 09, 2023 (Marquis) Some elements in this clinic note that are critical to medical decision making have been carefully reviewed and included from a prior clinic note dated: June 10, 2023 (Marquis) Referring Provider: Dr. Manuel Ferris Additional Clinicians involved in Ariadna Haley's care: VIRTUAL VISIT PROGRESS NOTE This is a virtual visit using [employer] Video Call. It required patient- provider interaction for the medical decision making as documented below. I have communicated my name and active licensure. The patient's identity and physical location wereverified at the time of this visit. Either the patient or their legal sales representative groceries has been informed of the risks and [...] injections. Shefollows with multiple doctors including and city planning engineer, project consultant, sampling expert and PCP. She has been told they [...] CPE Hematology and Oncology Services Provided at: [place], [place] CC: Manuel Ferris MD [address] [facility] [address] documented in this encounterBrecksville Va [facility]04-15-2024 Miscellaneous Notes* Telephone Encounter - Maynor Bryson MA - 09/06/2023 7:21 AM EDT patient has viewed the FixMeStick message per [facility]. * Telephone Encounter - Lynne Ni MD - 09/04/2023 6:30 PM EDT Please Call patient if Snoball note not read to review results/released to My Chart if tests completed at [facility]: Improved/Borderline wbc and one inflammatory test- will [...] accordingly. Lynne Ni MD documented in this encounterBrecksville Va [facility]04-09-2024 Nurse Note* Margret Cuenca MA - 08/31/2023 10:35 AM EDT Patient Identification confirmed: yes. Injection given and documented on JUL per provider order. Margret Cuenca MA documented in this encounterBrecksville Va [facility]04-01-2024 Nurse Note* Renea Schneider MA - 09/30/2023 10:53 AM EDT Patient Identification confirmed: yes. Injection given and documented on MAR per provider order. Renea Schneider MA documented in this encounterBrecksville Va [facility]03-14-2024 Nurse Note* Margret Cuenac - 08/05/2023 11:16 AM EDT Patient Identification confirmed: yes. Injection given and documented on JUL per provider order. Margret Cuenca documented in this encounterBrecksville Va [facility]02-20-2024 Nurse Note* Margret Cuenca - 07/13/2023 12:01 PM EST Patient Identification confirmed: yes. Injection given and documented on JUL per provider order. Margret Cuenca documented in this encounterBrecksville Va / [facility]02-20-2024 History of Present illness Narrative* Lois [...] and is being cared for at the [facility] utilizing steroids, Plaquenil and injectable medic ation(Benlystal). The patient record indicating having had cardiac catheterization in [place] 3 years ago which was normal. I have the report available for my review. [facility] [...] lupus being treated by rheumatology at the [facility] on steroids, Plaquenil and monoclonal antibody [...] , Rfl: ergocalciferol (Vitamin D-2) 1.25 MG (60546 UT) capsule, Take 1 capsule (50,000 Units) [...] Scribe Attestation By signing my name below, Isharronrleticlwayne , Scribe attest that this documentation has [...] exam, discussion and plan. documented in this [facility] Work Phone: 1(531) 616-505702-20-2024 Instructions* Patient Instructions* Lila Tejeda LPN - [...] time of your visit. documented in this [facility] Work Phone: [phone]) 752-381402-13-2024 History of Present illness Narrative* Kade Richardson [...] , Rfl: ergocalciferol (Vitamin D2) 1.25 MG (47133 UT) capsule, Take 50,000 Units by mouth [...] Chronic laryngopharyngitis COVID-19 vaccine administered x 2 (L4 Mobile) History of removal of cyst 2013 tailbone [...] reflexes: Stu's absent. Ankle clonus absent. Coordination Mrimdz-jp-oahz, rapid alternating movements and luta-zh-sxcq normal bilaterally without dysmetria. Gait Normal casual, [...] Lyrica 100 mg TID. She is on mhsmonyvws13 mg once daily. Increase prednisone 10 mg BID for 10 days. documented in this [facility]01-17-2024 History of Present illness Narrative* Michelle Jasmine, GEAR GENERATOR SET UP OPERATOR-MANAGER EXPORT - 06/09/2023 8:30 AM EST Ariadna Haley is a 42 y.o. female that presents to the office today for new patient evaluation asself referral for palpitations and elevated heart rates. She has a PMH of HTN, HLD, tachycardia, anemia, JOSE RAFAEL with CPAP compliance, lupus, autonomic dysfunction, arthritis, chronic back pain. She has undergone cardiac workup in the past in [place] as noted below. She also states that she follows withNeurology for possible POTS syndrome. Admits to daily tobacco use, 1 pack of cigarettes per day. Denies vaping, ETOH, recreational drugs. Admits to drinking approximately 1 pot of coffee per day. Denies daily exercise. 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 Family history [...] , Rfl: ergocalciferol (Vitamin D-2) 1.25 MG (54798 UT) capsule, Take 1 capsule (50,000 Units) [...] to prepare this document. documented in this [facility] Work Phone: [phone]) 261-780401-03-2024 Instructions* Patient Instructions* Christie Phan MD - 05/26/2023 5:43 PM EST Images from the original note were not included. https://[email or web address]/tofu-bolognese/ https://nutritionstudies.org/ssx-up-zvfivkxei-tgeibzep-wz-oznjz-r-rcqet-gjzm-randee il-gactv-pwjbdpmig/ https://www.Scoop.it/blog/plantbasedkids https://[employer]s/yeilk-calgu-ppqu-for-kids/ https://MEDOVENT/dxl-nr-zbyjbjuzhn-czur-lwny-xw-k-wfmfl-ntahx-diet/ WHAT TO EAT? Breakfast: Overnight Oats Base ingredients: 1/3 cup rolled oats, 1/3 cup plain almond milk, 1tsp kyle seeds. Optional add-ins: cinnamon, flax seeds, honey or maple syrup, nut butter, chopped nuts. Toppings: Any fresh fruit chopped. Mix together and place in refrigerator. Can make 5 at a time for the whole week. Homemade fresh oatmeal. Can also make in the crockpot. American muffin/almond butter topped with fresh berries American muffin, cooked egg/egg white, tomato, thin slice south african cheese Fresh berries, hard boiled egg, whole wheat toast Plain yogurt topped with berries, unsalted nuts, drizzle of honey Whole grain toast/American muffin topped with mashed avocado and tomatoes Lunch: Dinner leftovers packed in Tupperware, side of fruit Salad mixture topped with a protein (chick breast/tuna/hard boiled egg/beans), dressing and side offruit Dinner - Refer to plate environmental planner pictures to help select foods and portion ratios of protein, vegetables/starches. Keep it simple and rotate your favorite meals. Sheet nix meals Soups Grilled protein/vegetables/side of starch (plate environmental planner picture) Stir can with protein, mixed vegetables, and riced cauliflower or portion controlled whole grain rice. Make your own bowls - [place]i/Citizen Of [place]/ theme [place] with Zoodles (spiralized vegetable noodles). Roasted vegetable wraps Alter traditional recipes to reflect HIGH QUALITY ingredients in the right QUANTITIES. Snacks - portion controlled: Raw veggies (can have with hummus, mashed avocado, salsa). Unsalted nuts Fruit (1 serving). (optional side of peanut butter) Air pop popcorn [place] and low fat south african cheese rolled up String cheese Protein balls (mix rolled oats, nut butter, flax seeds, dash almond milk). Beverages: Water Coffee, Hot tea Unsweetened ice tea EATING OUT: Research menu online, include nutritional information. Make your order decision before getting to restaurant. Stick to recommended portions (plate environmental planner picture). Ask for substitutions or modifications. [...] baked potato, sprouted grain bread, chick peas https://www.[employer].Remote/article/3205170/mnolxcuosnbkg-viot-phxt-for-beginners / https://www.[employer].Remote/category/4274/yfdqgpnhtvqyn-lvys-uxtuvn/ https://www.[employer].Remote/category/4300/vxbijnuhslbpl-gyle-tpiw-plans/ My current favorite cookbooks are documented in this encounterBrecksville [facility]01-[facility] History of Present illness Narrative* Christie Phan MD - 05/26/2023 5:00 PM EST Images from the original note were not included. [facility] Follow-Up Appointment [...] the date of the service which included algj-kx-wqgm patient care, completing clinical documentation, performing a medically appropriate examination, counseling and educating the patient/family/caregiver, and ordering medications, tests, or procedures. Christie Phan MD, MA, [facility] Lifestyle Medicine Specialist documented in this encounterBrecksville [facility]12-04-2023 Miscellaneous Notes* Telephone Encounter - Renate Lawrence MA - 04/26/2023 5:26 PM EST Medication pending with new pharmacy information. documented in this encounterBrecksville [facility]12-04-2023 History of Present illness Narrative* Christie Phan MD - 04/26/2023 4:15 PM EST Images from the original note were not included. [facility] Virtual Follow-Up [...] the date of the service which included hjxk-ho-cfce patient care, completing clinical documentation, performing a medically appropriate examination, counseling and educating the patient/family/caregiver, and ordering medications, tests, or procedures. I have communicated my name and active licensure. The patient's identity and physical location wereverified at the time of this visit. Either the patient or their legal sales representative groceries has been informed of the risks and benefits of -- and alternatives to -- treatment through a remote evaluation andconsents to proceed with the evaluation remotely. Christie Phan MD, MA, [facility] Lifestyle Medicine Specialist documented in this encounterBrecksville [facility]12-04-2023 Nurse Note* Renate Lawrence MA - 04/26/2023 2:46 PM EST Spoke to Ariadna Haley, confirmed patient is registered on Snoball and is prepared for their appointment. Confirmed the patient has updated medications, allergies, and questionnaires via Snoball. Informed patient if there is an issue with the connection, provider will send the patient a secure link. If provider is running late, patient should remain connected to the visit. Patient verbalized understanding. documented in this encounterBrecksville [facility]11-30-2023 Miscellaneous Notes* Telephone Encounter - Enma Hamm RN - 04/22/2023 3:48 PM EST Pt called for Iron results; possible need for transfusion. Pt aware no need for iron infusion at this time. Enma Hamm RN documented in this encounterBrecksville [facility]11-24-2023 History of Present illness Narrative* Kenzie Shannon - 04/16/2023 10:55 AM EST Patient Identification confirmed: yes. Injection given and documented on JUL per provider order. Kenzie Shannon documented in this encounterBrecksville [facility]10-27-2023 History of Present illness Narrative* Kenzie Shannon - 03/19/2023 11:06 AM EDT Patient Identification confirmed: yes. Injection given and documented on JUL per provider order. Kenzie Shannon documented in this encounterBrecksville [facility]10-24-2023 History of Present illness Narrative* Marija Ziegler - 03/16/2023 10:13 AM EDT CMN RECEIVED BY [employer] VIA FAX, COMPLETED, AND PLACED IN PROVIDER MAILBOX FOR SIGNATURE On 2022 By Marija Ziegler Pastry Baker II. [employer] SENDING CMN: JOSH SIGNED AND DATED CMN, FAXED TO DME & CONFIRMATION PAGE RECEIVED: 03.24.23 documented in this encounterBrecksville [facility]10-19-2023 History of Present illness Narrative* Beatriz [...] LPN In Department: RHEUMATOLOGY documented in this [facility]10-18-2023 Miscellaneous Notes* Telephone Encounter - Christie Phan MD - 03/10/2023 2:18 PM EDT Spoke with patient. We stopped her trulicity because of side effects. She only took the cymbalta for a week. She will restart and we will see how she is doing in 2 months. Have also ordered insulin labs to check for insulin resistance. documented in this encounterBrecksville [facility]10-09-2023 Miscellaneous Notes* Telephone Encounter - Lynne Ni MD - 03/01/2023 3:27 PM EDT For chart: Eye exam 02/26/23 no ocular complication related to medication. * Telephone Encounter - Beatriz Sanchez LPN - 03/01/2023 2:38 PM EDT Received eye exam from [facility] Placed on your desk for review. documented in this encounterBrecksville [facility]09-29-2023 Nurse Note* Radha Kebede MA - 02/19/2023 11:48 AM EDT Patient Identification confirmed: yes. Injection given and documented on JUL per provider order. Radha Schofield MA documented in this encounterBrecksville Va [facility]09-29-2023 Instructions* Patient Instructions* Vera Najera MD - 02/19/2023 11:40 AM EDT B12 shot today and every 4 weeks. Continue Folic acid. Follow up in 8 Weeks - labs 1 week before. documented in this [facility]09-29-2023 History of Present illness Narrative* Vera Najera MD - 02/19/2023 11:32 AM EDT Images from the original note were not included. AMBULATORY TELEPHONE VISIT Ariadna Haley has consented to this telephone encounter. Persons Present: Patient and myself Chief Complaint/Reason: Anemia; To review recent blood work. HPI: Total Time Spent: 21 minutes Rebekah Rojas APRN.MANAGER EXPORT NAME: Ariadna Haley CLINIC NO.: [id number] DATE OF SERVICE: February 19, 2023 (chyna) Some elements in this clinic [...] injections. Shefollows with multiple doctors including and city planning engineer, project consultant, sampling expert and PCP. She has been told they [...] which included preparing to see the patient, mhbp-cx-iqvv patient care, completing clinical documentation, performing a medically appropriate examination, counseling and educating the patient/family/caregiver, ordering medications, tests, or p rocedures, and independently interpreting results (not separately reported). Vera Najera MD, CPE Hematology and Oncology Services Provided at: [place], [place] CC: Manuel Ferris MD [address] [facility] [address] documented in this encounterBrecksville Va [facility]09-26-2023 Miscellaneous Notes* Telephone Encounter - Lynne [...] Department RAYRAY INJECTION TEACHING 03/11/2023 7:30 AM [facility] MEG VIDEO SPEC EST 08/12/2023 9:00 AM [facility] MEG Last Ophthalmology Check for [...] diagnoses: Vitamin D deficiency documented in this encounterBrecksville [facility]09-18-2023 Miscellaneous Notes* Telephone Encounter - Mirela Carlos - 02/08/2023 11:12 AM EDT Spoke with patient Will get labs done when she does labs in Dec for Dre/Onc Mailed orders for DXA to pt so she can go to [facility] Pre cert Benlyst Scheduled Teaching visit [...] accordingly. Lynne Ni MD documented in this encounterBrecksville [facility]09-14-2023 History of Present illness Narrative* Carlene Rendon - 02/04/2023 9:31 AM EDT [facility](s) for Benlysta from Dr. Ni. Benefits investigation was conducted, indicating that a prior authorization is required by patients plan with [facility]. Encounter will be updated once prior authorization has been submitted by [facility]. [facility] P: [phone] F: [phone] documented in this encounterBrecksville Va [facility]09-14-2023 History of Present illness Narrative* Lynne [...] visit. Either the patient or their legal sales representative groceries has been informed of the risks and [...] Due for eye exam. Labs [facility] [place] [facility]/completed in 06/2021 (no results faxed to office, [...] COVID-19 original vaccine, age 12+ yr, monovalent (Joppel - PURPLE TOP) 09/28/2020 10/19/2020 05/26/2021 COVID-19 vaccine, age 12+ yr, bivalent ([employer]-DealCuriousNTTopBlip) 02/08/2022 Pneumovax no Flu shot no Tetanus [...] (33);NL cbc, cmp, negative hla b27; Outside [place] 06/2021 low vitamin D 16, vitamin b12-307;high [...] rate M25.531, M25.532 Bilateral wrist pain Z79.52 FPC 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 M81.8, T38.0X5A [...] patient voiced understanding. RECOMMENDATION/PLAN: [facility] [employer] on 02/04/23 DXA-AXIAL SKELETON DXA-FOREARM SKELETON Reviewed [...] (200mg) daily with a meal Please see housekeeping attendant every 6-12months while on Hydroxychloroquine. Start azathioprine [...] touching your toes, sit-ups, using row machine 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 pain recommendations per primary care provider/pain clinic [...] video & audio (virtual) or phone or mdll-mq-kwhf patient care, completing clinical documentation, obtaining and/or [...] cc Gay Enciso CNP;Dr.Douglas Sai Ferris MD [facility] AMBULATORY VISIT INTAKE QUESTIONNAIRE Question 02/02/2023 [...] Workers' Compensation? No Do you need an home care scheduler? No [facility] MYCHART ZOOM MESSAGE Question 02/02/2023 10:32 PM [...] of Right Forearm or Lower Left Leg. [facility] PROMIS 10 ADULT SHORT FORM V1.0 GLOBAL [...] < or = 5) documented in this encounterBrecksville Va / [facility]09-14-2023 Instructions* Patient Instructions* Lynne Ni MD [...] (200mg) daily with a meal Please see housekeeping attendant every 6-12months while on Hydroxychloroquine. azathioprine daily [...] your usual activities immediately. documented in this encounterBrecksville Va [facility]09-05-2023 Miscellaneous Notes* Telephone Encounter - Maynor Bryson MA - 01/26/2023 7:46 AM EDT patient has viewed the [employer] message per [facility]. * Telephone Encounter - Lynne Ni MD [...] accordingly. Lynne Ni MD documented in this encounterBrecksville [facility]09-01-2023 Nurse Note* Radha Kebede MA - 01/22/2023 12:17 PM EDT Patient Identification confirmed: yes. Injection given and documented on JUL per provider order. Radha Schofield MA documented in this encounterBrecksville Va / [facility]08-22-2023 Miscellaneous Notes* Telephone Encounter - Christie [...] above prescription(s) to electronically send to [facility] pharmacy. Milagro Mendiola MA documented in this encounterBrecksville Va / [facility]08-11-2023 History of Present illness Narrative* Misty Nelson MD - 01/01/2023 10:51 AM EDT VIRTUAL VISIT PROGRESS NOTE This is a virtual visit using Snoball video visit. It required patient-provider interaction for themedical decision making as documented below. I have communicated my name and active licensure. The patient's identity and physical location wereverified at the time of this visit. Either the patient or their legal sales representative groceries has been informed of the risks and [...] otitis or sinusitis No pneumonia She sees project consultant and was diagnosed with lupus She is on Plaquenil, azathioprine Prednisone 10mg once daily for the past year; every few months she gets treated with higher doses of prednisone for flares of her symptoms The medications seem to help the body aches She saw the databases computer consultant Treated with B12 and folic acid We [...] visit. Misty Nelson MD documented in this encounterBrecksville [facility]07-28-2023 Miscellaneous Notes* Telephone Encounter - Rebekah Rojas APRN.MANAGER EXPORT - 12/18/2022 10:48 AM EDT Spoke with patient this morning, 12/18/2022. Rebekah Rojas APRN.TRUE * Telephone Encounter - Lidia Argueta RN - 12/18/2022 9:31 AM EDT Pt called block mason service last evening stating she was suppose to have a phone call with Rebekah at 330 and never received a call. Pt is still waiting (536 pm 12/17/22). Please advise Lidia Argueta RN documented in this encounterBrecksville Va [facility]07-28-2023 History of Present illness Narrative* Rebekah [...] Total Time Spent: 21 minutes Rebekah Rojas APRN.CNP NAME: Ariadna Haley CLINIC NO.: [id number] DATE OF SERVICE: October 22, 2022 (Marquis) [...] injections. Shefollows with multiple doctors including and city planning engineer, project consultant, sampling expert and PCP. She has been told they [...] which included preparing to see the patient, sleg-ps-ancs patient care, completing clinical documentation, performing a medically appropriate examination, counseling and educating the patient/family/caregiver, ordering medications, tests, or p rocedures, and independently interpreting results (not separately reported). Vera Najera MD, CPE Hematology and Oncology Services Provided at: [place], [place] CC: Manuel Ferris MD [address] [facility] [address] documented in this encounterBrecksville Va [facility]07-26-2023 Miscellaneous Notes* Telephone Encounter - Pamella Bettencourt RN - 12/16/2022 1:14 PM EDT Pt notified and verbalizes understanding. Clerical: Please change tomorrow's appointment to a phone visit at the end of Rebekah's day. Preferred number is [phone]. In addition, pt will be in next 12/25/22 @ 1130 for her B12 shot. Please add her to the MA schedule. Thanks! Pamella Bettencourt RN * Telephone Encounter - Rebekah Rojas APRN.CNP - 12/16/2022 12:56 PM EDT That would be okay. Have her added at the end of the day. Thanks, Rebekah Rojas APRN.CNP * Telephone Encounter - Pamella Bettencourt [...] schedule? Pamella Bettencourt RN documented in this encounterBrecksville Va [facility]07-23-2023 Miscellaneous Notes* Telephone Encounter - Vera [...] advise Enma Hamm RN documented in this encounterBrecksville Va / [facility]07-04-2023 Miscellaneous Notes* Telephone Encounter - Lynne [...] accordingly. Lynne Ni MD documented in this [facility]06-29-2023 Nurse Note* Margret Cuenca - 11/19/2022 11:01 AM EDT Patient Identification confirmed: yes. Injection given and documented on JUL per provider order. Margret Cuenca documented in this [facility]06-01-2023 Nurse Note* Stacy Gutiérrez Ma - 10/22/2022 11:50 AM EDT Patient Identification confirmed: yes. Injection given and documented on JUL per provider order. Stacy Gutiérrez Ma documented in this [facility]06-01-2023 Instructions* Patient Instructions* Vera Najera MD - 10/22/2022 11:43 AM EDT B12 Shot today and every 4 weeks. Continue Folic acid. Follow up in 8 Weeks - labs 1 week before. documented in this [facility]06-01-2023 History of Present illness Narrative* Vera Najera MD - 10/22/2022 11:35 AM EDT Images from the original note were not included. NAME: Ariadna Haley CLINIC NO.: [id number] DATE OF SERVICE: October 22, 2022 (Marquis) [...] injections. Shefollows with multiple doctors including and city planning engineer, project consultant, sampling expert and PCP. She has been told they [...] decreasing. Initial Visit, March 04, 2022: Ariadna Torres hugo presents today Hematology and Oncology evaluation. She [...] which included preparing to see the patient, dbtf-kb-lnop patient care, completing clinical documentation, performing a medically appropriate examination, counseling and educating the patient/family/caregiver, ordering medications, tests, or p rocedures, and independently interpreting results (not separately reported). Vera Najera MD, CPE Hematology and Oncology Services Provided at: [place], [place] CC: Manuel Ferris MD [address] [facility] [address] documented in this encounterBrecksville Va [facility]05-04-2023 Nurse Note* Stacy Gutiérrez Ma - 09/24/2022 10:22 AM EDT Patient Identification confirmed: yes. Injection given and documented on JUL per provider order. Stacy Gutiérrez Ma documented in this encounterBrecksville Va [facility]04-18-2023 Miscellaneous Notes* Telephone Encounter - Stacy Hernandez - 09/08/2022 2:27 PM EDT Pharmacy-Reviewed Medication History Patient Name:Jim Haley : 1980 Patient Contact Attempt: First attempt Adherence Packing Program Accepted? No, patient does not wish to participate. Patient is not eligible for adherence packaging because PCP is not within [facility]. Patient wishes to continue at [facility] since medication bottles will look the same and then she can pick-up the medications when she needs them. Stacy Hernandez September 08, 2022 2:28 PM [facility] [phone] documented in this encounterBrecksville Va / [facility]04-17-2023 History of Present illness Narrative* Christie Phan MD - 09/07/2022 2:00 PM EDT Images from the original note were not included. [facility] Virtual Follow-Up [...] which included preparing to see the patient, cmki-on-cxsm patient care, completing clinical documentation, performing a medically appropriate examination, counseling and educating the patient/family/caregiver, ordering medications, tests, or p rocedures, and communicating with other HCPs (not separately reported). I have communicated my name and active licensure. The patient's identity and physical location wereverified at the time of this visit. Either the patient or their legal sales representative groceries has been informed of the risks and benefits of -- and alternatives to -- treatment through a remote evaluation andconsents to proceed with the evaluation remotely. Christie Phan MD, MA, [facility] Lifestyle Medicine Specialist documented in this encounterBrecksville Va [facility]04-17-2023 Nurse Note* Milagro Mendiola MA - 09/07/2022 2:00 PM EDT Called pt to do intake for video visit pt unavailable lft vm msg sent my chart. Milagro Mendiola MA documented in this encounterBrecksville Va [facility]04-10-2023 Miscellaneous Notes* Telephone Encounter - Shantel Higgins MA - 08/31/2022 8:38 AM EDT called [facility] pharmacy - pharmacy had 1 refill remaining no action needed from our office documented in this [facility]04-06-2023 Nurse Note* Stacy Gutiérrez Ma - 08/27/2022 10:31 AM EDT Patient Identification confirmed: yes. Injection given and documented on JUL per provider order. Stacy Gutiérrez Ma documented in this encounterBrecksville Va / [facility]04-06-2023 History of Present illness Narrative* Rebekah Rojas APRN.MANAGER EXPORT - 08/27/2022 10:00 AM EDT Images from the original note were not included. NAME: Ariadna Haley [facility] NO.: [id number] DATE OF SERVICE: August 27, 2022 (Bob) [...] injections. Shefollows with multiple doctors including and city planning engineer, project consultant, sampling expert and PCP. She has been told they [...] stomach other (Crohn's [Other]) Mother Rebekah Rojas APRN.MANAGER EXPORT Hematology and Oncology Services Provided at: [place], [place] CC: Manuel Ferris MD [address] [facility] [address] I spent a total of 30 minutes on the date of the service which included preparing to see the patient, ojrm-qq-xpph patient care, completing clinical documentation, obtaining and/or reviewing separately obtained history, performing a medically appropriate examination, counseling and educating the pat ient/family/caregiver, ordering medications, tests, or procedures, independently interpreting results (not separately reported), and communicating results to the patient/family/caregiver. documented in this encounterBrecksville Va [facility]03-29-2023 Miscellaneous Notes* Telephone Encounter - Freda [...] low vitamin b12- take over the counter 5366-4196 mcg daily. Improved/ normal rest of rheum [...] accordingly. Lynne Ni MD documented in this encounterBrecksville Va [facility]03-28-2023 Miscellaneous Notes* Telephone Encounter - Beatriz [...] accordingly. Lynne Ni MD documented in this encounterBrecksville Va / [facility]03-20-2023 Miscellaneous Notes* Telephone Encounter - Christie Phan MD - 08/10/2022 9:46 AM EDT [facility] requesting refill, patient never started according to the chart and I have not seen her in follow-up. * Telephone Encounter - Jami Everett Cma - 08/10/2022 7:40 AM EDT [facility] Pharmacy request for the following refill(s): Requested Prescriptions Pending Prescriptions Disp Refills DULoxetine (CYMBALTA) 20 mg capsule [Pharmacy Med Name: DULOXETINE HCL DR 20 MG CAP] 30 capsule 2 Sig: TAKE 1 CAPSULE BY MOUTH ONCE DAILY Please review and advise. Jami Everett Cma documented in this encounterBrecksville Va [facility]03-06-2023 Instructions* Patient Instructions* Lexus Heck APRN.TRUE [...] treatment, there are resources available at the [facility] such as a nutrition consultation or referral to weight management programs at our [facility] [place]. Please let us know if we can assist with a referral. - Continue CPAP at 5-15 cmH2O. - Remember to clean your mask and equipment regularly, as directed. - You should be eligible for new supplies approximately every 3-6 months, depending on your insurance coverage. Contact your [employer] (DME) company for new supplies. [...] the central scheduling system for the [facility] [place] at [phone]. [facility] now offers direct scheduling for patients to schedule appointments. Virtual visits are also available. If not covered by your insurance, there is a 35% discount. Please contact your insurance to determine coverage. Call the office at [phone], option #5 for questions. documented in this encounterBrecksville [facility]03-06-2023 History of Present illness Narrative* Lexus Heck APRN.CNP - 07/27/2022 10:30 AM EST Images from the original note were not included. [facility] Virtual Visit Follow [...] will have a prescription sent to a [employer] company - [employer] who will be calling you in the next 1-2 weeks or so. Please call them directly or us if you do not hear from them in this time frame. - Will request formal mask fitting - You should be eligible for new supplies approximately every 3-6 months, depending on your insurance coverage. - If your mask doesn't fit well, call the [employer] company before 30 days are up to [...] now to ensure the besttime for you. [facility] on 04/13/22 CONSULT TO SLEEP MEDICINE - ADULT CPAP/BIPAP/OTHER PAP THERAPY ORDER Lawanda Miranda MD Interval history : Here for follow up for sleep apnea management. SLEEP APNEA Sleep apnea type : JOSE RAFAEL Most Recent Apnea-Hypopnea Index (AHI): 5.3 Treatment : PAP therapy DME: Josh [facility] fax: [phone] DME ph: [phone] PAP History: Current PAP settin-15 cm H2O. [...] or near accidents due to drowsy drivin [place] Sleepiness Scale 04/12/2022 07/23/2022 Score 4 (No [...] medications, tests, or procedures. documented in this encounterB[facility] Miscellaneous Notes* Telephone Encounter - Kyara [...] back to this agent, please send to [facility] pool. 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 documented in this encounterBrecksville [facility]03-[facility]-2023 Miscellaneous Notes* Telephone Encounter - Gem Mercedes RN - 07/22/2022 2:37 PM EST MyChart message sent documented in this [facility]12-28-2022 History of Present illness Narrative* Kenzie Shannon - 05/20/2022 2:28 PM EST Patient Identification confirmed: yes. Injection given and documented on JUL per provider order. Kenzie Shannon documented in this [facility]12-28-2022 Miscellaneous Notes* Addendum Note - Vera Najera MD - 05/20/2022 2:27 PM ESTAddended by: VERA NAJERA on: 05/20/2022 02:27 PM Modules accepted: Orders documented in this [facility]12-28-2022 Instructions* Patient Instructions* Vera Najera MD - 05/20/2022 2:23 PM EST B12 Shot Today and every 4 weeks Get fit for CPAP mask and setting this 05/28/2021 Continue Folic acid. RTC in 8 Weeks - labs 1 week before. documented in this [facility]12-28-2022 History of Present illness Narrative* Vera Najera MD - 05/20/2022 1:30 PM EST Images from the original note were not included. NAME: Ariadna Haley CLINIC NO.: [id number] DATE OF SERVICE: May 20, 2022 ([place]) [...] which included preparing to see the patient, [id number]-[id number] patient care, completing clinical documentation, performing a medically appropriate examination, counseling and educating the patient/family/caregiver, ordering medications, tests, or p rocedures, and independently interpreting results (not separately reported). Vera Najera MD, [facility] Provided at: [place], [place] CC: Vera Najera [address] [place] [address] [place] [address] Manuel Ferris MD, [address] [facility] [address] [place]: [place] [address] [place] [id number] documented in this encounterBrec[facility]ville [facility]12-13-2022 Miscellaneous Notes* Telephone Encounter - Gem Mercedes RN - 05/05/2022 2:39 PM EST Faxed order, office notes, demographics, and sleep study to: DME name: Josh Reese DME fax: [phone] DME ph: [phone] Confirmation received. documented in this encounterBrecksville [facility]12-13-2022 Miscellaneous Notes* Telephone Encounter - Gem Mercedes RN - 05/05/2022 12:00 PM EST Snoball message sent documented in this encounterBrecksville [facility]12-13-2022 Miscellaneous Notes* Telephone Encounter - ANALILIA Monterroso - 05/05/2022 11:36 AM EST [facility] received your PAP order. Due to a major [employer] recall and manufacturing shortage, we are unable to fulfill the request to provide your patient with a CPAP/BIPAP machine at this time. We will keep the request on file and provide when inventory is available or you can forward the order to another DME provider such as [facility], [employer] or [id number]. Caring for our patients is our top priority and we apologize for this delay. Thank you for your patience during this time. [phone] #1 documented in this encounterBrecksville [facility]12-02-2022 Miscellaneous Notes* Telephone Encounter - Ny [...] doctor has noted concern for EDS. Her project consultant has told her that she has Lupus. Based on her history, I noted we can offer in-person evaluations for herself and/or her son to see if any genetic testing may be useful. I validated and provided support on the difficulty with her ambulation and transport concerns. [facility] and only [facility] at [facility]. I offered social work and/or transport assistance for the visit. She declined this and will discuss with her regarding the transport. She verbalized understanding the reasons for in-person evaluation recommended. She has the [facility] line and will call to reschedule for an in-person evaluation at [facility]. Ny Lance MD Plastics And Composites Inspector, Associate Staff [facility] documented in this encounterBrecksville [facility]11-30-2022 Miscellaneous Notes* Telephone Encounter - Eliza [...] copy of the report. Confirmed patient's email [email or web address] Licea Genetic Counselor Investigator Welfare documented in this encounterBrecksville [facility]11-08-2022 Miscellaneous Notes* Telephone Encounter - Renate Lawrence MA - 03/31/2022 2:34 PM EST [facility] electronically requests the following refill(s) Requested Prescriptions Pending Prescriptions Disp Refills DULoxetine (CYMBALTA) 20 mg capsule [Pharmacy Med Name: DULOXETINE HCL DR 20 MG CAP] 30 capsule 2 Sig: TAKE 1 CAPSULE BY MOUTH ONCE DAILY Renate Lawrence MA documented in this encounterBrecksville [facility]11-07-2022 Miscellaneous Notes* Telephone Encounter - Maria [...] Thanks. Misty Nelson MD documented in this [facility]11-07-2022 Miscellaneous Notes* Telephone Encounter - Maria Eugenia Sheehan LPN - 03/30/2022 11:49 AM EST [facility] and sent MoBeamhart regarding Dr. Nelson's directive. documented in this [facility]10-26-2022 Instructions* Patient Instructions* Vera Najera MD - 03/18/2022 11:16 AM EDT Referral for sleep study pending Start on Folic acid. RTC in 8 Weeks - labs 1 week before. documented in this encounterBrecksville [facility]10-26-2022 History of Present illness Narrative* Vera Najera MD - 03/18/2022 10:45 AM EDT Images from the original note were not included. NAME: Ariadna Haley CLINIC NO.: [id number] DATE OF SERVICE: March 18, 2022 ([place]) [...] which included preparing to see the patient, wuzm-jj-vuzm patient care, completing clinical documentation, performing a medically appropriate examination, counseling and educating the patient/family/caregiver, ordering medications, tests, or p rocedures, and independently interpreting results (not separately reported). Vera Najera MD, [facility] Provided at: [place], [place] CC: Manuel Ferris MD [address] [address] documented in this encounterBrecksville [facility]10-18-2022 History of Present illness Narrative* Misty Nelson MD - 03/10/2022 2:14 PM EDT VIRTUAL VISIT PROGRESS NOTE This is a virtual visit using Snoball video visit. It required patient-provider interaction for [...] the HR increases again She sees a head lineman in [place] PCP is running the Holter and echo [...] but was not pursued yet Lives in [place] She did have LN biopsy in the [...] visit. Misty Nelson MD documented in this encounterBrecksville [facility]10-17-2022 History of Past illness Narrative* Problem Noted Date Diagnosed Date Resolved Date Obesity, Class II, BMI 35-39.9 03/09/2022 03/10/2023 Obesity (BMI 30-39.9) 05/31/20142016 documented as of this encounter (statuses as of 03/10/2023) [facility] History of Past illness Narrative* Problem Noted Date Diagnosed Date Resolved Date Obesity, Class II, BMI 35-39.9 03/09/2022 03/10/2023 Obesity (BMI 30-39.9) 05/31/20142016 documented as of this encounter (statuses as of 03/11/2023) [facility] History of Past illness Narrative* Problem Noted Date Diagnosed Date Resolved Date Obesity, Class II, BMI 35-39.9 03/09/2022 03/10/2023 Obesity (BMI 30-39.9) 05/31/20142016 documented as of this encounter (statuses as of 03/19/2023) [facility] History of Past illness Narrative* Problem Noted Date Diagnosed Date Resolved Date Obesity, Class II, BMI 35-39.9 03/09/2022 03/10/2023 Obesity (BMI 30-39.9) 05/31/20142016 documented as of this encounter (statuses as of 03/24/2023) [address]17-2022 History of Past illness Narrative* Problem Noted Date Diagnosed Date Resolved Date Obesity, Class II, BMI 35-39.9 03/09/2022 03/10/2023 Obesity (BMI 30-39.9) 05/31/20142016 documented as of this encounter (statuses as of 04/16/2023) [address]17-2022 History of Past illness Narrative* Problem Noted Date Diagnosed Date Resolved Date Obesity, Class II, BMI 35-39.9 03/09/2022 03/10/2023 Obesity (BMI 30-39.9) 05/31/20142016 documented as of this encounter (statuses as of 04/23/2023) [address]17-2022 History of Past illness Narrative* Problem Noted Date Diagnosed Date Resolved Date Obesity, Class II, BMI 35-39.9 03/09/2022 03/10/2023 Obesity (BMI 30-39.9) 05/31/20142016 documented as of this encounter (statuses as of 04/27/2023) [address]17-2022 History of Past illness Narrative* Problem Noted Date Diagnosed Date Resolved Date Obesity, Class II, BMI 35-39.9 03/09/2022 03/10/2023 Obesity (BMI 30-39.9) 05/31/20142016 documented as of this encounter (statuses as of 04/27/2023) [address]17-2022 History of Past illness Narrative* Problem Noted Date Diagnosed Date Resolved Date Obesity, Class II, BMI 35-39.9 03/09/2022 03/10/2023 Obesity (BMI 30-39.9) 05/31/20142016 documented as of this encounter (statuses as of 05/31/2023) [address]17-2022 History of Past illness Narrative* Problem Noted Date Diagnosed Date Resolved Date Obesity, Class II, BMI 35-39.9 03/09/2022 03/10/2023 Obesity (BMI 30-39.9) 05/31/20142016 documented as of this encounter (statuses as of 07/13/2023) [address]17-2022 History of Past illness Narrative* Problem Noted Date Diagnosed Date Resolved Date Obesity, Class II, BMI 35-39.9 03/09/2022 03/10/2023 Obesity (BMI 30-39.9) 05/31/20142016 documented as of this encounter (statuses as of 07/13/2023) [address]17-2022 History of Past illness Narrative* Problem Noted Date Diagnosed Date Resolved Date Obesity, Class II, BMI 35-39.9 03/09/2022 03/10/2023 Obesity (BMI 30-39.9) 05/31/20142016 documented as of this encounter (statuses as of 08/05/2023) [address]17-2022 History of Past illness Narrative* Problem Noted Date Diagnosed Date Resolved Date Obesity, Class II, BMI 35-39.9 03/09/2022 03/10/2023 Obesity (BMI 30-39.9) 05/31/20142016 documented as of this encounter (statuses as of 08/12/2023) [address]17-2022 History of Past illness Narrative* Problem Noted Date Diagnosed Date Resolved Date Obesity, Class II, BMI 35-39.9 03/09/2022 03/10/2023 Obesity (BMI 30-39.9) 05/31/20142016 documented as of this encounter (statuses as of 09/01/2023) [address]17-2022 History of Past illness Narrative* Problem Noted Date Diagnosed Date Resolved Date Obesity, Class II, BMI 35-39.9 03/09/2022 03/10/2023 Obesity (BMI 30-39.9) 05/31/20142016 documented as of this encounter (statuses as of 09/06/2023) [address]17-2022 History of Past illness Narrative* Problem Noted Date Diagnosed Date Resolved Date Obesity, Class II, BMI 35-39.9 03/09/2022 03/10/2023 Obesity (BMI 30-39.9) 05/31/20142016 documented as of this encounter (statuses as of 09/11/2023) [address]17-2022 Instructions* Patient Instructions* Christie Phan MD - 03/09/2022 12:47 PM EDT Check EKG for prolonged QT. If normal, I would try going back on the Lexapro, can recheck an EKG inabout a month to make sure that things are going ok. (I'm leaving this, but we are changing to Cymbalta) Tilt Table Test [email or web address] documented in this encounterBrecksville [facility]10-17-2022 History of Present illness Narrative* Christie Phan MD - 03/09/2022 12:08 PM EDT Images from the original note were not included. 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 documented in this encounterBrecksville [facility]10-14-2022 Miscellaneous Notes* Telephone Encounter - Krista [...] accordingly. Lynne Ni MD documented in this encounterBrecksville [facility]10-12-2022 Instructions* Patient Instructions* Vera Najera MD - 03/04/2022 11:42 AM EDT Labs today. Referral for sleep study. RTC in 2 weeks. Consider immunology referral. Referral to lifestyle medicine documented in this encounterBrecksville [facility]10-12-2022 History of Present illness Narrative* Vera Najera MD - 03/04/2022 11:19 AM EDT Images from the original note were not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 [facility]* Diagnosis Irregular heart rate- Primary Essential hypertension Unspecified essential hypertension Autonomic dysfunction Obstructive sleep apnea syndrome Obstructive sleep apnea (adult) (pediatric) Primary hypertension Unspecified essential hypertension documented in this encounter [facility] Work Phone: Evaluation note* Diagnosis Autoimmune disease (CMS/HCC)- Primary Autoimmune disease, not elsewhere classified Autonomic dysfunction Lumbosacral radiculopathy Thoracic or lumbosacral neuritis or radiculitis, unspecified Bilateral leg weakness Muscle weakness (generalized) [facility] [place] [facility]* Diagnosis Shortness of breath- Primary Paroxysmal supraventricular tachycardia PAC (premature atrial contraction) Supraventricular premature beats Current smoker Systemic lupus erythematosus, unspecified SLE type, unspecified organ involvement status (CMS/HCC) Palpitations Obstructive sleep apnea syndrome Obstructive sleep apnea (adult) (pediatric) Morbid obesity (CMS/HCC) Morbid obesity Bilateral lower extremity edema documented in this encounter [facility] Work Phone: Evaluation note* Diagnosis Megaloblastic anemia due to vitamin B12 deficiency- Primary Other vitamin B12 deficiency anemia Elevated sed rate Elevated sedimentation rate [facility] [place] [facility]* Diagnosis Systemic lupus erythematosus with other organ involvement (HCC)- Primary [facility] [place] [facility]* Diagnosis Systemic lupus erythematosus with other organ involvement (HCC)- Primary [facility] Diagnosis Megaloblastic anemia due to vitamin B12 deficiency- Primary Other vitamin B12 deficiency anemia Elevated sed rate Elevated sedimentation rate [facility] [place] [facility]* Diagnosis Other systemic lupus erythematosus with other organ involvement (HCC)- Primary Vitamin D deficiency Unspecified vitamin D deficiency Elevated LFTs Other abnormal blood chemistry Anemia of chronic disease Anemia of other chronic disease Elevated sed rate Elevated sedimentation rate Elevated C-reactive protein (CRP) [facility] [place] [facility]* Diagnosis Megaloblastic anemia due to vitamin B12 deficiency- Primary Other vitamin B12 deficiency anemia Obstructive sleep apnea syndrome Obstructive sleep apnea (adult) (pediatric) Chronic fatigue and malaise Chronic fatigue syndrome High total serum IgM JOSE RAFAEL (obstructive sleep apnea) Obstructive sleep apnea (adult) (pediatric) Somnolence, daytime Hypersomnia, unspecified [facility] Diagnosis Elevated sed rate- Primary Elevated sedimentation rate Megaloblastic anemia due to vitamin B12 deficiency Other vitamin B12 deficiency anemia [facility] [place] [facility]* Diagnosis Other systemic lupus erythematosus with [...] other medications Long-term use of high-risk medication FPC 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-term (current) use of steroids 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 Bilateral hand pain Pain in limb History of vitamin D deficiency Personal history of nutritional deficiency [facility] Diagnosis Elevated sed rate- Primary Elevated sedimentation rate Megaloblastic anemia due to vitamin B12 deficiency Other vitamin B12 deficiency anemia [facility]* Diagnosis Other systemic lupus erythematosus with other organ involvement (HCC) Encounter for jail 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-term (current) use of other medications [facility]* Diagnosis Systemic lupus erythematosus with other organ involvement (HCC)- Primary [facility]* Diagnosis Vitamin B12 deficiency- Primary Other B-complex deficiencies [facility]* Diagnosis Elevated sed rate- Primary Elevated sedimentation rate Megaloblastic anemia due to vitamin B12 deficiency Other vitamin B12 deficiency anemia [facility] Diagnosis Elevated sed rate- Primary Elevated sedimentation rate Megaloblastic anemia due to vitamin B12 deficiency Other vitamin B12 deficiency anemia [facility]* Diagnosis Megaloblastic anemia due to vitamin B12 deficiency- Primary Other vitamin B12 deficiency anemia Elevated sed rate Elevated sedimentation rate Obstructive sleep apnea syndrome Obstructive sleep apnea (adult) (pediatric) [facility]* Diagnosis Elevated LFTs- Primary Other abnormal blood chemistry Elevated C-reactive protein (CRP) Elevated sed rate Elevated sedimentation rate Vitamin D deficiency Unspecified vitamin D deficiency Screening-pulmonary TB Screening examination for pulmonary tuberculosis [facility]* Diagnosis Other systemic lupus erythematosus with other organ involvement (HCC) [facility]* Diagnosis Systemic lupus erythematosus with other organ involvement (HCC)- Primary [facility] Diagnosis Elevated sed rate- Primary Elevated sedimentation rate Megaloblastic anemia due to vitamin B12 deficiency Other vitamin B12 deficiency anemia [facility]* Diagnosis Pseudomonas infection- Primary Pseudomonas infection in conditions classified elsewhere and of unspecified site Other systemic lupus erythematosus with other organ involvement (HCC) On prednisone therapy Long-term use of Plaquenil 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-term (current) use of other medications [facility] Diagnosis Onset Date Resolution Status Lupus acute Recurrent Clostridioides difficile diarrhea acute Nipple discharge in female a cute Recurrent Clostridioides difficile diarrhea acute Lumbosacral spondylosis acut e Other chronic pain acute Sacroiliitis acute [facility] Work Phone: Evaluation note* Diagnosis JOSE RAFAEL (obstructive sleep apnea)- Primary Obstructive sleep apnea (adult) (pediatric) Somnolence, daytime Hypersomnia, unspecified [facility] [place] [facility]* Diagnosis Systemic lupus erythematosus with other organ involvement (HCC)- Primary documented in this encounter [facility] note* Diagnosis Systemic lupus erythematosus with other organ involvement (HCC)- Primary [facility] [place] [facility]* Diagnosis Onset Date Resolution Status Nipple discharge in female a cute Recurrent Clostridioides difficile diarrhea acute Lumbosacral spondylosis acut e Other chronic pain acute Sacroiliitis acute [facility] Work Phone: Evaluation note* Diagnosis Elevated sed rate- Primary Elevated sedimentation rate Megaloblastic anemia due to vitamin B12 deficiency Other vitamin B12 deficiency anemia documented in this encounter [facility] note* Diagnosis Onset Date Resolution Status Nipple discharge in female a cute Recurrent Clostridioides difficile diarrhea acute Lumbosacral spondylosis acut e Other chronic pain acute Sacroiliitis acute Lumbosacral spondylosis acut e Other chronic pain acute Sacroiliitis acute [facility] Work Phone: Evaluation note* Diagnosis Lumbosacral radiculopathy at L5 Degenerative disc disease, lumbar Cervical radiculopathy at C5 [facility] [place] [facility]* Diagnosis Onset Date Resolution Status Lumbosacral spondylosis acut e Other chronic pain acute Sacroiliitis acute Lumbosacral spondylosis acut e Other chronic pain acute Sacroiliitis acute [facility] Work Phone: Evaluation note* Diagnosis Other systemic lupus erythematosus with other organ involvement (HCC) [facility] [place] [facility]* Diagnosis Other systemic lupus erythematosus with [...] both feet Long-term use of high-risk medication FPC 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-term (current) use of steroids Bilateral hand pain Pain in limb Systemic lupus erythematosus, unspecified SLE type, unspecified organ involvement status (HCC) Vitamin B12 deficiency Other B-complex deficiencies Discoid lupus erythematosus Lupus erythematosus [facility] Diagnosis Nipple discharge Other sign and symptom in breast documented in this encounter [facility] note* Diagnosis Elevated sed rate- Primary Elevated sedimentation rate Megaloblastic anemia due to vitamin B12 deficiency Other vitamin B12 deficiency anemia [facility] Diagnosis Abnormal uterine bleeding (AUB) Menorrhagia with regular cycle documented in this encounter [facility] note* Diagnosis Megaloblastic anemia due to vitamin B12 deficiency- Primary Other vitamin B12 deficiency anemia High total serum IgM JOSE RAFAEL (obstructive sleep apnea) Obstructive sleep apnea (adult) (pediatric) Elevated sed rate Elevated sedimentation rate Hypogammaglobulinemia (HCC) Hypogammaglobulinaemia, unspecified Frequent infections [facility] Diagnosis Oral thrush- Primary Candidiasis of mouth documented in this encounter [facility] HealthcareEvaluation note* Diagnosis Oral thrush- Primary Candidiasis of mouth documented in this encounter [facility]Evaluation note* Diagnosis Systemic lupus erythematosus with other organ involvement ([facility] Primary [facility] Diagnosis LPRD (laryngopharyngeal reflux disease)- Primary Acute laryngitis, without mention of obstruction Acute otalgia, right documented in this encounter [facility] HealthcareEvaluation note* Diagnosis Autoimmune disease ([facility]) Autoimmune disease, not elsewhere classified Fibromyalgia Unspecified myalgia and myositis Numbness Disturbance of skin sensation documented in this encounter [facility] HealthcareEvaluation note* Diagnosis Lumbosacral radiculopathy at L5- Primary Degenerative disc disease, lumbar Cervical radiculopathy at C5 documented in this encounter [facility] HealthcareEvaluation note* Diagnosis Degenerative disc disease, lumbar- Primary Lumbosacral radiculopathy at L5 documented in this encounter [facility] note* Diagnosis Frequent infections- Primary Megaloblastic anemia due to vitamin B12 deficiency Other vitamin B12 deficiency anemia Elevated sed rate Elevated sedimentation rate Hypogammaglobulinemia (HCC) Hypogammaglobulinaemia, unspecified Bilateral leg weakness Other musculoskeletal symptoms referable to limbs Discoid lupus erythematosus Lupus erythematosus [facility] [place] [facility]* Diagnosis Well woman exam with routine gynecological exam Routine gynecological examination Breast cancer screening by mammogram Breast nodule Other (abnormal) findings on radiological examination of breast [facility] [place] [facility]* Diagnosis Megaloblastic anemia due to vitamin B12 deficiency- Primary Other vitamin B12 deficiency anemia Hypogammaglobulinemia (HCC) Hypogammaglobulinaemia, unspecified Positive blood cultures Bacteremia Malaise and fatigue Other malaise and fatigue SOB (shortness of breath) Shortness of breath documented [facility] this [facility] [place] [facility]* Diagnosis Elevated sed rate- Primary Elevated sedimentation rate Megaloblastic anemia due to vitamin B12 deficiency Other vitamin B12 deficiency anemia Hypogammaglobulinemia (HCC) Hypogammaglobulinaemia, unspecified Frequent infections Bilateral leg weakness Other musculoskeletal symptoms referable to limbs Discoid lupus erythematosus Lupus erythematosus [facility] [place] [facility]* Diagnosis Diarrhea, unspecified type- Primary Abdominal pressure Abdominal pain, unspecified site [facility] [place] [facility]* Diagnosis Other iron deficiency anemia- Primary [facility] [place] [facility]* Diagnosis Other systemic lupus erythematosus with other organ involvement (HCC) documented [facility] [place] [facility]* Diagnosis Systemic lupus erythematosus with other organ involvement (HCC)- Primary [facility] [place] [facility]* Diagnosis Systemic lupus erythematosus (CMS-HCC)- Primary Cold extremities Pain of lower extremity, unspecified laterality Rheumatoid arthritis, involving unspecified site, unspecified whether rheumatoid factor present ([facility]) Current smoker 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 [facility] Diagnosis Systemic lupus erythematosus (CMS-HCC)- Primary Cold extremities Pain of lower extremity, unspecified laterality Rheumatoid arthritis, involving unspecified site, unspecified whether rheumatoid factor present ([facility]) Current smoker 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 Peripheral vascular disease, unspecified (CMS-HCC)- Primary Peripheral vascular disease, unspecified Cold extremities Systemic lupus erythematosus (CMS-HCC) [facility]* Diagnosis Other systemic lupus erythematosus with other organ involvement (HCC)- Primary Vitamin D deficiency Unspecified vitamin D deficiency Elevated LFTs Other abnormal blood chemistry Anemia of chronic disease Anemia of other chronic disease Elevated sed rate Elevated sedimentation rate Elevated C-reactive protein (CRP) [facility] Diagnosis Onset Date Resolution Status Admit Date Lumbosacral spondylosis acute F ebruary 2024 3:16pm Other chronic pain acute Februa ry 2024 3:16pm Sacroiliitis acute June 3:16pm [facility] Work Phone: Evaluation note* Diagnosis Elevated sed rate- Primary Elevated sedimentation rate Megaloblastic anemia due to vitamin B12 deficiency Other vitamin B12 deficiency anemia Frequent infections Hypogammaglobulinemia (HCC) Hypogammaglobulinaemia, unspecified Bilateral leg weakness Other musculoskeletal symptoms referable to limbs Discoid lupus erythematosus Lupus erythematosus [facility] Diagnosis LPRD (laryngopharyngeal reflux disease) Other diseases of larynx Dry mouth Disturbance of salivary secretion Current smoker Tobacco use disorder Abnormal mouth sensation Other and unspecified diseases of the oral soft tissues [facility] Diagnosis Nipple discharge- Primary Other sign and symptom in breast Other systemic lupus erythematosus with other organ involvement (HCC) On prednisone therapy Long-term use of Plaquenil 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-term (current) use of other medications [facility] Diagnosis Hidradenitis suppurativa- Primary Hidradenitis Other seborrheic dermatitis Lupus erythematosus tumidus (CMS/HCC) Rash and other nonspecific skin eruption Capillary angioma Nevus, non-neoplastic Neoplasm of uncertain behavior of skin [facility] Diagnosis Sinus tachycardia- Primary Other specified cardiac dysrhythmias Shortness of breath Paroxysmal supraventricular tachycardia (CMS-HCC) Paroxysmal supraventricular tachycardia Essential hypertension Unspecified essential hypertension Obstructive sleep apnea syndrome Obstructive sleep apnea (adult) (pediatric) Morbid obesity (Multi) Morbid obesity Current smoker documented in this encounter [facility] Work Phone: Evaluation note* Diagnosis Elevated sed rate- Primary Elevated sedimentation rate Megaloblastic anemia due to vitamin B12 deficiency Other vitamin B12 deficiency anemia Frequent infections Hypogammaglobulinemia (HCC) Hypogammaglobulinaemia, unspecified Bilateral leg weakness Other musculoskeletal symptoms referable to limbs Discoid lupus erythematosus Lupus erythematosus [facility] [place] [facility] Diagnosis Systemic lupus erythematosus with other organ involvement (HCC)- Primary [facility] [place] [facility]* Diagnosis Vitamin B12 deficiency- Primary Other B-complex deficiencies Other iron deficiency anemia Hypogammaglobulinemia (HCC) Hypogammaglobulinaemia, unspecified documented [facility] [place] [facility]* Diagnosis Other systemic lupus erythematosus with other organ involvement (HCC) documented [facility] [place] [facility]* Diagnosis Thyroid nodule (CMS/HCC)- Primary Nontoxic uninodular goiter LPRD (laryngopharyngeal reflux disease) Acute laryngitis, without mention of obstruction [facility] [place] [facility]* Diagnosis Hypogammaglobulinemia (HCC)- Primary Hypogammaglobulinaemia, unspecified Vitamin B12 deficiency Other B-complex deficiencies Other iron deficiency anemia Megaloblastic anemia due to vitamin B12 deficiency Other vitamin B12 deficiency anemia documented [facility] [place] [facility]* Diagnosis Frequent infections- Primary Hypogammaglobulinemia (HCC) Hypogammaglobulinaemia, unspecified Bilateral leg weakness Other musculoskeletal symptoms referable to limbs Discoid lupus erythematosus Lupus erythematosus Elevated sed rate Elevated sedimentation rate Megaloblastic anemia due to vitamin B12 deficiency Other vitamin B12 deficiency anemia [facility] [place] [facility]* Diagnosis Other systemic lupus erythematosus with other organ involvement (HCC)- Primary [facility] [place] [facility]* Diagnosis Other systemic lupus erythematosus with other organ involvement (HCC) documented [facility] [place] [facility]* Diagnosis Systemic lupus erythematosus with other organ involvement (HCC)- Primary [facility] [place] [facility]* Diagnosis Fibromyalgia- Primary Mylagia and myositis, unspecified Family history of disease of aorta Family history of cancer Family history of unspecified malignant neoplasm [facility] [place] [facility]* Diagnosis Frequent infections- Primary Hypogammaglobulinemia (HCC) [...] vitamin D deficiency [facility] Diagnosis Other systemic lupus erythematosus with other organ involvement (HCC)- Primary [facility]* Diagnosis Other systemic lupus erythematosus with other organ involvement (HCC)- Primary Elevated LFTs Other abnormal blood chemistry Anemia of chronic disease Anemia of other chronic disease Elevated sed rate Elevated sedimentation rate Elevated C-reactive protein (CRP) Vitamin B12 deficiency Other B-complex deficiencies Screening-pulmonary TB Screening examination for pulmonary tuberculosis Vitamin D deficiency Unspecified vitamin D deficiency [facility] Diagnosis Other systemic lupus erythematosus [...] both feet Long-term use of high-risk medication long term 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-term (current) use of steroids Bilateral hand pain Pain in limb Family history of Crohn's disease Family history of other digestive disorders 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 Bilateral wrist pain 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, forearm [facility] Diagnosis Other systemic lupus erythematosus with other organ involvement (HCC)- Primary documented [facility] [place] [facility]* Diagnosis Generalized articular hypermobility- Primary Other joint derangement, not elsewhere classified, multiple sites Chronic pain syndrome Discoid lupus erythematosus Lupus erythematosus Family history of pneumothorax in son Family history of other condition Family history of cancer Family history of unspecified malignant neoplasm Family history of mild aortic dilation in daughter Family history of other cardiovascular diseases [facility] Diagnosis Elevated sed rate- Primary Elevated sedimentation rate Megaloblastic anemia due to vitamin B12 deficiency Other vitamin B12 deficiency anemia Frequent infections Hypogammaglobulinemia (HCC) Hypogammaglobulinaemia, unspecified Bilateral leg weakness Other musculoskeletal symptoms referable to limbs Discoid lupus erythematosus Lupus erythematosus documented [facility] [place] [facility]* Diagnosis Other systemic lupus erythematosus with other organ involvement (HCC)- Primary documented [facility] [place] [facility]* Diagnosis Hypogammaglobulinemia (HCC)- Primary Hypogammaglobulinaemia, unspecified [facility] [place] [facility]* Diagnosis Hidradenitis suppurativa- Primary Hidradenitis Pain Generalized pain Acne vulgaris Other acne [facility]* Diagnosis Hypogammaglobulinemia (HCC)- Primary Hypogammaglobulinaemia, unspecified Vitamin B12 deficiency Other B-complex deficiencies Other iron deficiency anemia Malaise and fatigue Other malaise and fatigue Shortness of breath Other specified disorders of breast Pre-diabetes Other abnormal glucose Gastro-esophageal reflux disease without esophagitis Esophageal reflux [facility] [place] [facility]* Diagnosis Elevated sed rate- Primary Elevated sedimentation rate Megaloblastic anemia due to vitamin B12 deficiency Other vitamin B12 deficiency anemia Frequent infections Hypogammaglobulinemia (HCC) Hypogammaglobulinaemia, unspecified Bilateral leg weakness Other musculoskeletal symptoms referable to limbs Discoid lupus erythematosus Lupus erythematosus documented [facility] [place] [facility]* Diagnosis Other systemic lupus erythematosus with other organ involvement (HCC)- Primary [facility] [place] [facility]* Diagnosis Other systemic lupus erythematosus with [...] in this encounter [facility] note* Diagnosis Other systemic lupus erythematosus with other organ involvement (HCC)- Primary Elevated LFTs Other abnormal blood chemistry Anemia of chronic disease Anemia of other chronic disease Elevated C-reactive protein (CRP) Elevated sed rate Elevated sedimentation rate Vitamin D deficiency Unspecified vitamin D deficiency [facility] [place] [facility]* Diagnosis Frequent infections- Primary Hypogammaglobulinemia (HCC) Hypogammaglobulinaemia, unspecified Bilateral leg weakness Other musculoskeletal symptoms referable to limbs Discoid lupus erythematosus Lupus erythematosus Elevated sed rate Elevated sedimentation rate Megaloblastic anemia due to vitamin B12 deficiency Other vitamin B12 deficiency anemia [facility] [place] [facility]* Diagnosis Pilonidal cyst- Primary Hidradenitis suppurativa Hidradenitis documented in this encounter [facility] HealthcareHistory general Narrative - Reported* Type Description Date Medical History hyperlipidemia Medical History insulin resistance Medical History CMV Surgical History cyst removal pilonidal Surgical History D&C Hospitalization History bookletmobile Other Hospital Discharge instructionsAmbulatory Orders* Referral to Gastroenterology Location: None [facility] Work Phone: InstructionsNot on filedocumented in this encounter [facility] for referral (narrative)* Diagnostic Procedure Only (Routine) - Pending Review Specialty Diagnoses / Procedures Referred By Nahid t Referred To Contact XR IMAGING Diagnoses Steroid-induced osteoporosis Procedures DXA-FOREARM SKELETON DXA BONE DENSITY STUDY /SITES APPENDICLR Lynne Perera MD [address] [place] [address] [place] [id number] Referral ID Status Reason Start Date Expiration Date Visits Requested Visits Authorized [id number] Pending Review Auto-Generat ed Referral 02/04/2023 03/05/2024 1 1 [facility] for referral (narrative)* Consultation (Routine) - Authorized Specialty Diagnoses / Procedures Referred By Nahid t Referred To Contact Cardiology Diagnoses Irregular heart rate Essential hypertension Autonomic dysfunction Obstructive sleep apnea syndrome Primary hypertension Procedures Follow Up In Cardiology Michelle Jasmine APRN-MANAGER EXPORT [address] [facility] [address] [place] [address] Aurora Patel MD [address] [address] Referral ID Status Reason Start Date Expiration Date V isits Requested Visits Authorized [id number] Authorized 06/09/2023 06/08/2024 1 1 * Cardiovascular (Routine) - Pending Review Specialty Diagnoses / Procedures Referred By Contiliana t Referred To Contact Cardiology Diagnoses Irregular heart rate Procedures Holter Or Event Collar Fuser Michelle Jasmine APRN-CNP [address] [facility] [address] [place] [address] Referral ID Status Reason Start Date Expiration Date V isits Requested Visits Authorized Pending Review 06/09/2023 06/08/2024 1 1 * CV Imaging (Routine) - Pending Review Specialty Diagnoses / Procedures Referred By Contac t Referred To Contact Cardiology Diagnoses Irregular heart rate Obstructive sleep apnea syndrome Procedures Transthoracic Echo (TTE) Complete HI ECHO TTHRC R-T 2D W/WOM-MODE COMPL SPEC&COLR D [facility] [address] [facility] [address] [place] [address] Referral ID Status Reason Start Date Expiration Date Visits Requested Visits Authorized Pending Review Perform Procedure 06/09/2023 06/08/2024 1 1 * Cardiovascular (Routine) - Authorized Specialty Diagnoses / Procedures Referred By Contac t Referred To Contact Diagnoses Irregular heart rate Procedures ECG 12 Lead Michelle Jasmine APRN-MANAGER EXPORT [address] [facility] [address] [place] [address] Referral ID Status Reason Start Date Expiration Date V isits Requested Visits Authorized [id number] Authorized 06/09/2023 06/08/20[address] [facility] Work Phone: [facility] Consultation (Routine) - Pending Review Specialty Diagnoses / Procedures Referred By Contac t Referred To Contact Pain Medicine Diagnoses Lumbosacral radiculopathy at L5 Degenerative disc disease, lumbar Procedures HI OFFICE/OUTPATIENT NEW HIGH MDM 60 MINUTES Kade Richardson MD [address] [place] [address] [place] [id number] Adolfo Kang MD [address] [address] Referral ID Status Reason Start Date Expiration Date Visits Requested Visits Authorized [id number] Pending Review Specialty Services Required 01/20/2024 07/18/2024 1 1 [facility]No reason for referral [facility] Work Phone: Reason for visit Narrative* Mcintosh Prior Authorization (Routine) - Authorized Specialty Diagnoses / Procedures Referred By Contac t Referred To Contact Diagnoses Frequent infections Hypogammaglobulinemia (HCC) Bilateral leg weakness Discoid lupus erythematosus Procedures GAMMAGARD LIQUID INJECTION Vera Najera MD [address] [place] [address] [place] [address] Phone: tel: fax: Hematology/Oncology [address] [place] [address] [place] [address] Phone: tel: fax: Referral ID Status Reason Start Date Expiration Date V isits Requested Visits Authorized [id number] Authorized 04/03/2024 10/01/2024 7 7 [facility] for visit Narrative* Mcintosh Prior Authorization (Routine) - Authorized Specialty Diagnoses / Procedures Referred By Contac t Referred To Contact Diagnoses Other systemic lupus erythematosus with other organ involvement (HCC) Procedures BELIMUMAB INJECTION Lynne Ni MD [address] [place] [address] Phone: tel: fax: Lynne Ni MD [address] [place] [address] Phone: tel: fax: Referral ID Status Reason Start Date Expiration Date V isits Requested Visits Authorized [id number] Authorized 09/08/2024 03/10/2025 8 8 [facility] for visit Narrative* Mcintosh Prior Authorization (Routine) - Authorized Specialty Diagnoses / Procedures Referred By Contac t Referred To Contact Diagnoses Other iron deficiency anemia Procedures IRON SUCROSE INJECTION PER 1 MG Vaibhav Carvalho APRN.[facility] [address] [place] [address] Phone: tel: fax: Hematology/Oncology [address] [place] [address] Phone: tel: fax: Referral ID Status Reason Start Date Expiration Date V isits Requested Visits Authorized [id number] Authorized 06/16/2024 05/23/2025 99 99 [facility] for visit Narrative* Mcintosh Prior Authorization (Routine) - Authorized Specialty Diagnoses / Procedures Referred By Contac t Referred To Contact Diagnoses Frequent infections Hypogammaglobulinemia (HCC) Bilateral leg weakness Discoid lupus erythematosus Procedures GAMMAGARD LIQUID INJECTION Vera Najera MD [address] [place] [address] Phone: tel: fax: Hematology/Oncology [address] [place] [id number] Phone: tel: fax: Referral ID Status Reason Start Date Expiration Date Visits Requested Visits Authorized [id number] Authorized Patient Cleared - Admin/Chairm an/Director advise to proceed or did not respond 10/30/2024 10/30/2025 19 19 [facility] for visit Narrative* Mcintosh Prior Authorization (Routine) - Authorized Specialty Diagnoses / Procedures Referred By Contac t Referred To Contact Diagnoses Frequent infections Hypogammaglobulinemia (HCC) Bilateral leg weakness Discoid lupus erythematosus Procedures GAMMAGARD LIQUID INJECTION Vera Najera MD [address] [facility] [place] [address] Phone: tel: fax: Hematology/Oncology [address] [place] [address] Phone: tel: fax: Referral ID Status Reason Start Date Expiration Date Visits Requested Visits Authorized [id number] Authorized Patient Cleared - Admin/Chairm an/Director advise to proceed or did not respond 10/30/2024 10/30/2025 18 18 [facility] N[facility] Mcintosh Prior Authorization (Routine) - Authorized Specialty Diagnoses / Procedures Referred By Contac t Referred To Contact Diagnoses Frequent infections Hypogammaglobulinemia (HCC) Bilateral leg weakness Discoid lupus erythematosus Procedures GAMMAGARD LIQUID INJECTION IMMUNE GLOBULIN INJECTION Vera Najera MD [address] [place] [address] Phone: tel: fax: Hematology/Oncology [address] [place] [address] Phone: tel: fax: Referral ID Status Reason Start Date Expiration Date Visits Requested Visits Authorized [id number] Authorized Patient Cleared - Admin/Chairm an/Director advise to proceed or did not respond 10/30/2024 10/30/2025 19 19 [facility] Summary Purpose Family History No Family History Records Found Relationship Condition Age at Onset Recorded Date/T michelle father Unknown Malignant neoplasm Unknown Relationship Condition Age at Onset Recorded Date/T michelle father Malignant neoplasm of stomach Unknown Unknown mother Crohn's disease Unknown Advance Directives No Advanced Directives Records FoundDocuments on File Type Date Recorded 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 ACP-Advance Directive ACP-Power of Skidder Latest Code Status on File Code Status Date Activated Date Inactivated Comments Full Code 10/07/2020 8:32 AM Documents on File Type Date Recorded 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 Advance Directive(s) 09/13/2015 8:36 AM Advance Directive Response Recorded Date/ Time Advance Directives No September 17 2:40pm Advance Directive Response Recorded Date/ Time Advance Directives No September 17 1:40pm Reason for Referral Specialty Diagnoses / Procedures Referred By Contac t Referred To Contact Infectious Diseases Diagnoses Positive blood cultures Procedures CONSULT TO INFECTIOUS DISEASES OFFICE/OUTPATIENT [facility] HIGH MDM 60 MINUTES Vaibhav Carvalho APRN.MANAGER EXPORT [address] [place] [address] Referral ID Status Reason Start Date Expiration Date Visits Requested Visits Authorized [id number] Authorized PCP Requested Referral 06/13/2024 06/13/2025 1 1 Specialty Diagnoses / Procedures Referred By Contac t Referred To Contact Diagnoses Paroxysmal supraventricular tachycardia PAC (premature atrial contraction) Procedures ECG 12 Lead Lois Holm MD [address] [place] [address] 2, [address] [address] Referral ID Status Reason Start Date Expiration Date V isits Requested Visits Authorized [id number] Authorized 07/13/2023 07/12/2024 1 1 Specialty Diagnoses / Procedures Referred By Contac t Referred To Contact Cardiology Diagnoses Shortness of breath Paroxysmal supraventricular tachycardia PAC (premature atrial contraction) Procedures Follow Up In Cardiology Lois Holm MD [address] [place] [address] 2, [address] [address] Lois Holm MD [address] [place] [address] 2, [address] [address] Referral ID Status Reason Start Date Expiration Date V isits Requested Visits Authorized [id number] Authorized 07/13/2023 07/12/2024 1 1 Specialty Diagnoses / Procedures Referred By Contac t Referred To Contact Diagnoses Obesity, Class III, BMI 40-49.9 (morbid obesity) (HCC) Pre-diabetes Christie Phan MD [address] [place], [place] [id number] Referral ID Status Reason Start Date Expiration Date Visits Re quested Visits Authorized [id number] Closed 1 1 Specialty Diagnoses / Procedures Referred By Contac t Referred To Contact Diagnoses Wound healing, delayed Procedures CONSULT TO MEDICAL GENETICS - GENERAL OFFICE/OUTPATIENT [facility] 60-74 MINUTES MEDICAL GENETICS COUNSELING EACH 30 MINUTES Misty Nelson MD [facility] [place] [address] [facility] [place] [address] [place] [id number] Referral ID Status Reason Start Date Expiration Date Visits Requested Visits Authorized [id number] Authorized PCP Requested Referral Auto-Generate d Referral 2 03/10/2023 1 1 Specialty Diagnoses / Procedures Referred By Contac t Referred To Contact Neurology Diagnoses POTS (postural orthostatic tachycardia syndrome) Procedures CONSULT TO NEUROLOGY OFFICE/OUTPATIENT [facility] 60-74 MINUTES Christie Phan MD [address] [place] [address] Referral ID Status Reason Start Date Expiration Date Visits Requested Visits Authorized [id number] Authorized PCP Requested Referral 2 03/12/2023 1 1 Specialty Diagnoses / Procedures Referred By Contac t Referred To Contact Immunology Diagnoses Raised level of immunoglobulins Procedures CONSULT TO IMMUNOLOGY OFFICE/OUTPATIENT [facility] 60-74 MINUTES Christie Phan MD [address] [place] [address] Referral ID Status Reason Start Date Expiration Date V isits Requested Visits Authorized [id number] Closed PCP Requested Referral 03/09/2022 03/09/2023 1 1 Specialty Diagnoses / Procedures Referred By Contac t Referred To Contact [facility] Diagnoses Somnolence, daytime Snoring Procedures HOME SLEEP APNEA TEST (HSAT) SLEEP STD AIRFLOW HRT RATE&O2 SAT EFFORT UNATT Christie Phan MD [address] [place] [address] [facility] [address] [place] [address] Referral ID Status Reason Start Date Expiration Date Visits Requested Visits Authorized [id number] Authorized Auto-Generat ed Referral 2 03/09/2023 1 1 Specialty Diagnoses / Procedures Referred By Contac t Referred To Contact Diagnoses Somnolence, daytime Chronic fatigue and malaise Obesity, unspecified classification, unspecified obesity type, unspecified whether serious comorbidity present Procedures CONSULT TO LIFESTYLE MEDICINE MD OFFICE/OUTPATIENT [facility] 60-74 MINUTES Vera Najera MD [address] [place] [address] [address] [place] [phone] Referral ID Status Reason Start Date Expiration Date V isits Requested Visits Authorized [id number] Closed PCP Requested Referral 03/04/2022 03/04/2023 1 1 Specialty Diagnoses / Procedures Referred By Contac t Referred To Contact Diagnoses Somnolence, daytime Snoring Procedures CONSULT TO SLEEP MEDICINE - ADULT OFFICE/OUTPATIENT [facility] 60-74 MINUTES Vera Najera MD [address] [place] [address] [place] [address] Referral ID Status Reason Start Date Expiration Date Visits Requested Visits Authorized [id number] Authorized PCP Requested Referral 03/04/2023 1 1 [...] 1 month f/u REFF BY DR. JOSUE RICAHRDSON Back Pain Reason for Visit Nipple discharge [...] facet MBB August 22 2 025 1:25pm Chief Complaint Admit Date f/u [...] LUMBAR FACET MBB L3,4,5 November 21 12:49pm November 22, 2024 2:38p m FOLLOW UP [...] section and content) DATE CREATED AUTHOR 09/20/2018 [facility] DATE CREATED AUTHOR AUTHOR'S ORGANIZ ATION 12/10/2018 [facility] DATE CREATED AUTHOR AUTHOR'S ORGANIZ ATION 01/13/2019 [facility] DATE CREATED AUTHOR AUTHOR'S ORGANIZ ATION 06/28/2021 [facility] DATE CREATED AUTHOR AUTHOR'S ORGANIZ ATION 10/01/2022 [facility] DATE CREATED AUTHOR AUTHOR'S ORGANIZ ATION 03/10/2024 [facility] DATE CREATED AUTHOR AUTHOR'S ORGANIZ ATION 07/22/2024 [facility] DATE CREATED AUTHOR AUTHOR'S ORGANIZ ATION 07/28/2024 [facility] DATE CREATED AUTHOR AUTHOR'S ORGANIZ ATION 02/07/2025 [facility] DATE CREATED AUTHOR AUTHOR'S ORGANIZ ATION 02/16/2025 [facility] DATE CREATED AUTHOR AUTHOR'S ORGANIZ ATION 02/26/2025 [facility] Reason for Visit (unrecogniz ed section and content) Reason Comments Infection Follow Up Specialty Diagnoses / Procedures Referred By Nahid tran Referred To Contact Infectious Diseases Diagnoses Positive blood cultures Procedures CONSULT TO INFECTIOUS DISEASES OFFICE/OUTPATIENT [facility] 60 MINUTES Vaibhav Carvalho, MAURILIO.[address] [place] [address] Phone: tel: fax: Referral ID Status Reason Start Date Expiration Date V isits Requested Visits Authorized [id number] Closed PCP Requested Referral 06/13/2024 06/13/2025 1 1 Status Reason Specialty Diagnoses / Procedures Referre d By Contact Referred To Contact [facility] Reason Comments Pain ongoing generalized pain. [...] HIGH MDM 60-74 MINUTES Vera Najera MD [address] [place] [address] [place] [address] Referral ID Status Reason Start Date Expiration Date V isits Requested Visits Authorized [id number] Closed PCP Requested Referral 03/04/2022 03/04/2023 1 1 Reason Comments High Total serum IgM Anemia Reason Comments Consult Specialty Diagnoses / Procedures Referred By Nahid t Referred To Contact Immunology Diagnoses Raised level of immunoglobulins Procedures CONSULT TO IMMUNOLOGY OFFICE/OUTPATIENT NEW HIGH MDM 60-74 MINUTES Christie Phan MD [address] [place] [place] [phone] Referral ID Status Reason Start Date Expiration Date V isits Requested Visits Authorized [id number] Closed PCP Requested Referral 03/09/2022 03/09/2023 1 1 Reason Comments Pneumovax Reason Comments Refill Request Reason Comments Appointment Video And Sound Recorder - Other Reason Comments Future Appointment Scheduling questions /concerns Reason Comments PAP Therapy Follow Up Reason Comments PAP Rx Faxed [facility] [place] Reason Comments Anemia 8 week [...] rate Procedures ECG 12 Lead Michelle Jasmine, GEAR GENERATOR SET UP OPERATOR-MANAGER EXPORT [address] [facility] [address] [place] [address] Referral ID Status Reason Start Date Expiration Date V isits Requested Visits Authorized [id number] Authorized 06/09/2023 06/08/2024 1 1 Reason Comments New Patient Visit Leg Swelling, test r esults from [place] Specialty Diagnoses / Procedures Referred By Contac t Referred To Contact Diagnoses Paroxysmal supraventricular tachycardia PAC (premature atrial contraction) Procedures ECG 12 Lead Lois Holm MD [address] [facility] 2, [address] [place] [address] Referral ID Status Reason Start Date Expiration Date V isits Requested Visits Authorized [id number] Authorized 07/13/2023 07/12/2024 1 1 Reason Onset [...] Reason Comments Orders PAP RX. Reason Comments Video And Sound Recorder - Other Eds scheduling Reason Comments Med [...] GAMMAGARD LIQUID INJECTION Vera Najera MD [address] [place] [address] [address] [place] [address] Referral ID Status Reason Start Date Expiration Date V isits Requested Visits Authorized [id number] Authorized 04/03/2024 10/01/2024 7 7 Reason Comments [...] of lower extremity, unspecified laterality Gay Enciso, GEAR GENERATOR SET UP OPERATOR-MANAGER EXPORT [address] [place] [address] Phone: tel:[phone] fax: Hayden Arciniega MD [address] [place] [address] Phone: tel:[phone] fax: Referral ID Status Reason Start Date Expiration Date Visits Requested Visits Authorized [id number] Pending Review Specialty Services Required 03/15/2025 1 [...] Up In Cardiology Lois Holm MD [address] [facility] [address], [address] [address] Phone: tel: fax: Lois Holm MD [address] [facility] 2, [address] [address] Phone: tel: fax: Referral ID Status Reason Start Date Expiration Date V isits Requested Visits Authorized [id number] Authorized 07/13/2023 07/12/2024 1 1 Reason Comments Med Change Request Reason Comments Patient Question Reason Onset Date Comments SPP Inflammatory Conditions - Medication Refill 08/17/2024 Benlysta Reason Onset Date Comments Refill Request 09/01/2024 Reason Comments Thyroid Nodule Follow up ultrasound [facility] 08/24/24 Reason Comments Megaloblastic anemia due to vitamin B12 deficiency Treatment visit Reason Onset Date Comments Results 09/07/2024 Reason Comments Medication Preauthorization Appointment Reason Comments Future Appointment Reason Onset Date Comments SPP Inflammatory Conditions - Medication Refill 09/20/2024 Benlysta Reason Comments Joint Pain Reason Comments Patient Update Appointment Reason Comments SLE Osteoarthritis Reason Comments Consult hypermobility Specialty Diagnoses / Procedures Referred By Nahid tran Referred To Contact Genetics / MEDICAL GENETICS Diagnoses hEDS with concerns and wants CTD evaluation Procedures EST PATIENT Self Ny Lance MD [address] [address] Phone: tel: fax: Referral ID Status Reason Start Date Expiration Date V isits Requested Visits Authorized [id number] Pending Review 09/19/2024 12/18/2024 1 1 Reason [...] or drug abuse patient.[facility] the event this information is protected by the Federal Confidentiality of Alcohol and Drug Abuse Patient Records regulations: The Federal rules restrict any use of the information to criminally investigate or prosecute any alcohol or drug abuse patient.[facility] the event this information is protected by the Federal Confidentiality of Alcohol and Drug Abuse Patient Records regulations: The Federal rules restrict any use of the information to criminally investigate or prosecute any alcohol or drug abuse patient.[facility] the event this information is protected by the Federal Confidentiality of Alcohol and Drug Abuse Patient Records regulations: The Federal rules restrict any use of the information to criminally investigate or prosecute any alcohol or drug abuse patient.[facility] the event this information is protected by the Federal Confidentiality of Alcohol and Drug Abuse Patient Records regulations: The Federal rules restrict any use of the information to criminally investigate or prosecute any alcohol or drug abuse patient.[facility] the event this information is protected by the Federal Confidentiality of Alcohol and Drug Abuse Patient Records regulations: The Federal rules restrict any use of the information to criminally investigate or prosecute any alcohol or drug abuse patient.[facility] the event this information is protected by the Federal Confidentiality of Alcohol and Drug Abuse Patient Records regulations: The Federal rules restrict any use of the information to criminally investigate or prosecute any alcohol or drug abuse patient.[facility]In the event this information is protected by the Federal Confidentiality of Alcohol and Drug Abuse Patient Records regulations: The Federal rules restrict any use of the information to criminally investigate or prosecute any alcohol or drug abuse patient.[facility] the event this information is protected by the Federal Confidentiality of Alcohol and Drug Abuse Patient Records regulations: The Federal rules restrict any use of the information to criminally investigate or prosecute any alcohol or drug abuse patient.[facility] the event this information is protected by the Federal Confidentiality of Alcohol and Drug Abuse Patient Records regulations: The Federal rules restrict any use of the information to criminally investigate or prosecute any alcohol or drug abuse patient.[facility] the event this information is protected by the Federal Confidentiality of Alcohol and Drug Abuse Patient Records regulations: The Federal rules restrict any use of the information to criminally investigate or prosecute any alcohol or drug abuse patient.[facility]In the event this information is protected by the Federal Confidentiality of Alcohol and Drug Abuse Patient Records regulations: The Federal rules restrict any use of the information to criminally investigate or prosecute any alcohol or drug abuse patient.[facility]In the event this information is protected by the Federal Confidentiality of Alcohol and Drug Abuse Patient Records regulations: The Federal rules restrict any use of the information to criminally investigate or prosecute any alcohol or drug abuse patient.[facility]In the event this information is protected by the Federal Confidentiality of Alcohol and Drug Abuse Patient Records regulations: The Federal rules restrict any use of the information to criminally investigate or prosecute any alcohol or drug abuse patient.[facility]In the event this information is protected by the Federal Confidentiality of Alcohol and Drug Abuse Patient Records regulations: The Federal rules restrict any use of the information to criminally investigate or prosecute any alcohol or drug abuse patient.[facility] the event this information is protected by the Federal Confidentiality of Alcohol and Drug Abuse Patient Records regulations: The Federal rules restrict any use of the information to criminally investigate or prosecute any alcohol or drug abuse patient.[facility]In the event this information is protected by the Federal Confidentiality of Alcohol and Drug Abuse Patient Records regulations: The Federal rules restrict any use of the information to criminally investigate or prosecute any alcohol or drug abuse patient.[facility] HospitalIn the event this information is protected by the Federal Confidentiality of Alcohol and Drug Abuse Patient Records regulations: The Federal rules restrict any use of the information to criminally investigate or prosecute any alcohol or drug abuse patient.[facility] HospitalIn the event this information is protected by the Federal Confidentiality of Alcohol and Drug Abuse Patient Records regulations: The Federal rules restrict any use of the information to criminally investigate or prosecute any alcohol or drug abuse patient.[facility]In the event this information is protected by the Federal Confidentiality of Alcohol and Drug Abuse Patient Records regulations: The Federal rules restrict any use of the information to criminally investigate or prosecute any alcohol or drug abuse patient.[facility]In the event this information is protected by the Federal Confidentiality of Alcohol and Drug Abuse Patient Records regulations: The Federal rules restrict any use of the information to criminally investigate or prosecute any alcohol or drug abuse patient.[facility] HospitalIn the event this information is protected by the Federal Confidentiality of Alcohol and Drug Abuse Patient Records regulations: The Federal rules restrict any use of the information to criminally investigate or prosecute any alcohol or drug abuse patient.[facility] HospitalIn the event this information is protected by the Federal Confidentiality of Alcohol and Drug Abuse Patient Records regulations: The Federal rules restrict any use of the information to criminally investigate or prosecute any alcohol or drug abuse patient.[facility]In the event this information is protected by the Federal Confidentiality of Alcohol and Drug Abuse Patient Records regulations: The Federal rules restrict any use of the information to criminally investigate or prosecute any alcohol or drug abuse patient.[facility]In the event this information is protected by the Federal Confidentiality of Alcohol and Drug Abuse Patient Records regulations: The Federal rules restrict any use of the information to criminally investigate or prosecute any alcohol or drug abuse patient.[facility]In the event this information is protected by the Federal Confidentiality of Alcohol and Drug Abuse Patient Records regulations: The Federal rules restrict any use of the information to criminally investigate or prosecute any alcohol or drug abuse patient.[facility]In the event this information is protected by the Federal Confidentiality of Alcohol and Drug Abuse Patient Records regulations: The Federal rules restrict any use of the information to criminally investigate or prosecute any alcohol or drug abuse patient.[facility] HospitalIn the event this information is protected by the Federal Confidentiality of Alcohol and Drug Abuse Patient Records regulations: The Federal rules restrict any use of the information to criminally investigate or prosecute any alcohol or drug abuse patient.[facility] HospitalIn the event this information is protected by the Federal Confidentiality of Alcohol and Drug Abuse Patient Records regulations: The Federal rules restrict any use of the information to criminally investigate or prosecute any alcohol or drug abuse patient.[facility] HospitalIn the event this information is protected by the Federal Confidentiality of Alcohol and Drug Abuse Patient Records regulations: The Federal rules restrict any use of the information to criminally investigate or prosecute any alcohol or drug abuse patient.[facility] HospitalIn the event this information is protected by the Federal Confidentiality of Alcohol and Drug Abuse Patient Records regulations: The Federal rules restrict any use of the information to criminally investigate or prosecute any alcohol or drug abuse patient.[facility] HospitalIn the event this information is protected by the Federal Confidentiality of Alcohol and Drug Abuse Patient Records regulations: The Federal rules restrict any use of the information to criminally investigate or prosecute any alcohol or drug abuse patient.[facility] HospitalIn the event this information is protected by the Federal Confidentiality of Alcohol and Drug Abuse Patient Records regulations: The Federal rules restrict any use of the information to criminally investigate or prosecute any alcohol or drug abuse patient.[facility] HospitalIn the event this information is protected by the Federal Confidentiality of Alcohol and Drug Abuse Patient Records regulations: The Federal rules restrict any use of the information to criminally investigate or prosecute any alcohol or drug abuse patient.[facility]In the event this information is protected by the Federal Confidentiality of Alcohol and Drug Abuse Patient Records regulations: The Federal rules restrict any use of the information to criminally investigate or prosecute any alcohol or drug abuse patient.[facility] HospitalIn the event this information is protected by the Federal Confidentiality of Alcohol and Drug Abuse Patient Records regulations: The Federal rules restrict any use of the information to criminally investigate or prosecute any alcohol or drug abuse patient.[facility]In the event this information is protected by the Federal Confidentiality of Alcohol and Drug Abuse Patient Records regulations: The Federal rules restrict any use of the information to criminally investigate or prosecute any alcohol or drug abuse patient.[facility]In the event this information is protected by the Federal Confidentiality of Alcohol and Drug Abuse Patient Records regulations: The Federal rules restrict any use of the information to criminally investigate or prosecute any alcohol or drug abuse patient.[facility] HospitalIn the event this information is protected by the Federal Confidentiality of Alcohol and Drug Abuse Patient Records regulations: The Federal rules restrict any use of the information to criminally investigate or prosecute any alcohol or drug abuse patient.[facility]In the event this information is protected by the Federal Confidentiality of Alcohol and Drug Abuse Patient Records regulations: The Federal rules restrict any use of the information to criminally investigate or prosecute any alcohol or drug abuse patient.[facility]In the event this information is protected by the Federal Confidentiality of Alcohol and Drug Abuse Patient Records regulations: The Federal rules restrict any use of the information to criminally investigate or prosecute any alcohol or drug abuse patient.[facility]In the event this information is protected by the Federal Confidentiality of Alcohol and Drug Abuse Patient Records regulations: The Federal rules restrict any use of the information to criminally investigate or prosecute any alcohol or drug abuse patient.[facility] HospitalIn the event this information is protected by the Federal Confidentiality of Alcohol and Drug Abuse Patient Records regulations: The Federal rules restrict any use of the information to criminally investigate or prosecute any alcohol or drug abuse patient.[facility]In the event this information is protected by the Federal Confidentiality of Alcohol and Drug Abuse Patient Records regulations: The Federal rules restrict any use of the information to criminally investigate or prosecute any alcohol or drug abuse patient.[facility]In the event this information is protected by the Federal Confidentiality of Alcohol and Drug Abuse Patient Records regulations: The Federal rules restrict any use of the information to criminally investigate or prosecute any alcohol or drug abuse patient.[facility]In the event this information is protected by the Federal Confidentiality of Alcohol and Drug Abuse Patient Records regulations: The Federal rules restrict any use of the information to criminally investigate or prosecute any alcohol or drug abuse patient.[facility] HospitalIn the event this information is protected by the Federal Confidentiality of Alcohol and Drug Abuse Patient Records regulations: The Federal rules restrict any use of the information to criminally investigate or prosecute any alcohol or drug abuse patient.[facility] HospitalIn the event this information is protected by the Federal Confidentiality of Alcohol and Drug Abuse Patient Records regulations: The Federal rules restrict any use of the information to criminally investigate or prosecute any alcohol or drug abuse patient.[facility]In the event this information is protected by the Federal Confidentiality of Alcohol and Drug Abuse Patient Records regulations: The Federal rules restrict any use of the information to criminally investigate or prosecute any alcohol or drug abuse patient.[facility] HospitalIn the event this information is protected by the Federal Confidentiality of Alcohol and Drug Abuse Patient Records regulations: The Federal rules restrict any use of the information to criminally investigate or prosecute any alcohol or drug abuse patient.[facility] HospitalIn the event this information is protected by the Federal Confidentiality of Alcohol and Drug Abuse Patient Records regulations: The Federal rules restrict any use of the information to criminally investigate or prosecute any alcohol or drug abuse patient.[facility]In the event this information is protected by the Federal Confidentiality of Alcohol and Drug Abuse Patient Records regulations: The Federal rules restrict any use of the information to criminally investigate or prosecute any alcohol or drug abuse patient.[facility]In the event this information is protected by the Federal Confidentiality of Alcohol and Drug Abuse Patient Records regulations: The Federal rules restrict any use of the information to criminally investigate or prosecute any alcohol or drug abuse patient.[facility] HospitalIn the event this information is protected by the Federal Confidentiality of Alcohol and Drug Abuse Patient Records regulations: The Federal rules restrict any use of the information to criminally investigate or prosecute any alcohol or drug abuse patient.[facility] HospitalIn the event this information is protected by the Federal Confidentiality of Alcohol and Drug Abuse Patient Records regulations: The Federal rules restrict any use of the information to criminally investigate or prosecute any alcohol or drug abuse patient.[facility]In the event this information is protected by the Federal Confidentiality of Alcohol and Drug Abuse Patient Records regulations: The Federal rules restrict any use of the information to criminally investigate or prosecute any alcohol or drug abuse patient.[facility] HospitalIn the event this information is protected by the Federal Confidentiality of Alcohol and Drug Abuse Patient Records regulations: The Federal rules restrict any use of the information to criminally investigate or prosecute any alcohol or drug abuse patient.[facility] HospitalIn the event this information is protected by the Federal Confidentiality of Alcohol and Drug Abuse Patient Records regulations: The Federal rules restrict any use of the information to criminally investigate or prosecute any alcohol or drug abuse patient.[facility] HospitalIn the event this information is protected by the Federal Confidentiality of Alcohol and Drug Abuse Patient Records regulations: The Federal rules restrict any use of the information to criminally investigate or prosecute any alcohol or drug abuse patient.[facility]In the event this information is protected by the Federal Confidentiality of Alcohol and Drug Abuse Patient Records regulations: The Federal rules restrict any use of the information to criminally investigate or prosecute any alcohol or drug abuse patient.[facility] HospitalIn the event this information is protected by the Federal Confidentiality of Alcohol and Drug Abuse Patient Records regulations: The Federal rules restrict any use of the information to criminally investigate or prosecute any alcohol or drug abuse patient.[facility] HospitalIn the event this information is protected by the Federal Confidentiality of Alcohol and Drug Abuse Patient Records regulations: The Federal rules restrict any use of the information to criminally investigate or prosecute any alcohol or drug abuse patient.[facility] HospitalIn the event this information is protected by the Federal Confidentiality of Alcohol and Drug Abuse Patient Records regulations: The Federal rules restrict any use of the information to criminally investigate or prosecute any alcohol or drug abuse patient.[facility] HospitalIn the event this information is protected by the Federal Confidentiality of Alcohol and Drug Abuse Patient Records regulations: The Federal rules restrict any use of the information to criminally investigate or prosecute any alcohol or drug abuse patient.[facility] HospitalIn the event this information is protected by the Federal Confidentiality of Alcohol and Drug Abuse Patient Records regulations: The Federal rules restrict any use of the information to criminally investigate or prosecute any alcohol or drug abuse patient.[facility] HospitalIn the event this information is protected by the Federal Confidentiality of Alcohol and Drug Abuse Patient Records regulations: The Federal rules restrict any use of the information to criminally investigate or prosecute any alcohol or drug abuse patient.[facility]In the event this information is protected by the Federal Confidentiality of Alcohol and Drug Abuse Patient Records regulations: The Federal rules restrict any use of the information to criminally investigate or prosecute any alcohol or drug abuse patient.[facility]In the event this information is protected by the Federal Confidentiality of Alcohol and Drug Abuse Patient Records regulations: The Federal rules restrict any use of the information to criminally investigate or prosecute any alcohol or drug abuse patient.[facility]In the event this information is protected by the Federal Confidentiality of Alcohol and Drug Abuse Patient Records regulations: The Federal rules restrict any use of the information to criminally investigate or prosecute any alcohol or drug abuse patient.[facility]In the event this information is protected by the Federal Confidentiality of Alcohol and Drug Abuse Patient Records regulations: The Federal rules restrict any use of the information to criminally investigate or prosecute any alcohol or drug abuse patient.[facility]In the event this information is protected by the Federal Confidentiality of Alcohol and Drug Abuse Patient Records regulations: The Federal rules restrict any use of the information to criminally investigate or prosecute any alcohol or drug abuse patient.[facility]In the event this information is protected by the Federal Confidentiality of Alcohol and Drug Abuse Patient Records regulations: The Federal rules restrict any use of the information to criminally investigate or prosecute any alcohol or drug abuse patient.[facility]In the event this information is protected by the Federal Confidentiality of Alcohol and Drug Abuse Patient Records regulations: The Federal rules restrict any use of the information to criminally investigate or prosecute any alcohol or drug abuse patient.[facility]In the event this information is protected by the Federal Confidentiality of Alcohol and Drug Abuse Patient Records regulations: The Federal rules restrict any use of the information to criminally investigate or prosecute any alcohol or drug abuse patient.[facility]In the event this information is protected by the Federal Confidentiality of Alcohol and Drug Abuse Patient Records regulations: The Federal rules restrict any use of the information to criminally investigate or prosecute any alcohol or drug abuse patient.[facility]In the event this information is protected by the Federal Confidentiality of Alcohol and Drug Abuse Patient Records regulations: The Federal rules restrict any use of the information to criminally investigate or prosecute any alcohol or drug abuse patient.[facility]In the event this information is protected by the Federal Confidentiality of Alcohol and Drug Abuse Patient Records regulations: The Federal rules restrict any use of the information to criminally investigate or prosecute any alcohol or drug abuse patient.[facility]In the event this information is protected by the Federal Confidentiality of Alcohol and Drug Abuse Patient Records regulations: The Federal rules restrict any use of the information to criminally investigate or prosecute any alcohol or drug abuse patient.[facility]In the event this information is protected by the Federal Confidentiality of Alcohol and Drug Abuse Patient Records regulations: The Federal rules restrict any use of the information to criminally investigate or prosecute any alcohol or drug abuse patient.[facility]In the event this information is protected by the Federal Confidentiality of Alcohol and Drug Abuse Patient Records regulations: The Federal rules restrict any use of the information to criminally investigate or prosecute any alcohol or drug abuse patient.[facility]In the event this information is protected by the Federal Confidentiality of Alcohol and Drug Abuse Patient Records regulations: The Federal rules restrict any use of the information to criminally investigate or prosecute any alcohol or drug abuse patient.[facility]In the event this information is protected by the Federal Confidentiality of Alcohol and Drug Abuse Patient Records regulations: The Federal rules restrict any use of the information to criminally investigate or prosecute any alcohol or drug abuse patient.[facility]In the event this information is protected by the Federal Confidentiality of Alcohol and Drug Abuse Patient Records regulations: The Federal rules restrict any use of the information to criminally investigate or prosecute any alcohol or drug abuse patient.[facility]In the event this information is protected by the Federal Confidentiality of Alcohol and Drug Abuse Patient Records regulations: The Federal rules restrict any use of the information to criminally investigate or prosecute any alcohol or drug abuse patient.[facility]In the event this information is protected by the Federal Confidentiality of Alcohol and Drug Abuse Patient Records regulations: The Federal rules restrict any use of the information to criminally investigate or prosecute any alcohol or drug abuse patient.[facility]In the event this information is protected by the Federal Confidentiality of Alcohol and Drug Abuse Patient Records regulations: The Federal rules restrict any use of the information to criminally investigate or prosecute any alcohol or drug abuse patient.[facility]In the event this information is protected by the Federal Confidentiality of Alcohol and Drug Abuse Patient Records regulations: The Federal rules restrict any use of the information to criminally investigate or prosecute any alcohol or drug abuse patient.[facility]In the event this information is protected by the Federal Confidentiality of Alcohol and Drug Abuse Patient Records regulations: The Federal rules restrict any use of the information to criminally investigate or prosecute any alcohol or drug abuse patient.[facility]In the event this information is protected by the Federal Confidentiality of Alcohol and Drug Abuse Patient Records regulations: The Federal rules restrict any use of the information to criminally investigate or prosecute any alcohol or drug abuse patient.[facility]In the event this information is protected by the Federal Confidentiality of Alcohol and Drug Abuse Patient Records regulations: The Federal rules restrict any use of the information to criminally investigate or prosecute any alcohol or drug abuse patient.[facility]In the event this information is protected by the Federal Confidentiality of Alcohol and Drug Abuse Patient Records regulations: The Federal rules restrict any use of the information to criminally investigate or prosecute any alcohol or drug abuse patient.[facility]In the event this information is protected by the Federal Confidentiality of Alcohol and Drug Abuse Patient Records regulations: The Federal rules restrict any use of the information to criminally investigate or prosecute any alcohol or drug abuse patient.[facility]In the event this information is protected by the Federal Confidentiality of Alcohol and Drug Abuse Patient Records regulations: The Federal rules restrict any use of the information to criminally investigate or prosecute any alcohol or drug abuse patient.[facility]In the event this information is protected by the Federal Confidentiality of Alcohol and Drug Abuse Patient Records regulations: The Federal rules restrict any use of the information to criminally investigate or prosecute any alcohol or drug abuse patient.[facility]In the event this information is protected by the Federal Confidentiality of Alcohol and Drug Abuse Patient Records regulations: The Federal rules restrict any use of the information to criminally investigate or prosecute any alcohol or drug abuse patient.[facility]In the event this information is protected by the Federal Confidentiality of Alcohol and Drug Abuse Patient Records regulations: The Federal rules restrict any use of the information to criminally investigate or prosecute any alcohol or drug abuse patient.[facility]In the event this information is protected by the Federal Confidentiality of Alcohol and Drug Abuse Patient Records regulations: The Federal rules restrict any use of the information to criminally investigate or prosecute any alcohol or drug abuse patient.[facility]In the event this information is protected by the Federal Confidentiality of Alcohol and Drug Abuse Patient Records regulations: The Federal rules restrict any use of the information to criminally investigate or prosecute any alcohol or drug abuse patient.[facility]In the event this information is protected by the Federal Confidentiality of Alcohol and Drug Abuse Patient Records regulations: The Federal rules restrict any use of the information to criminally investigate or prosecute any alcohol or drug abuse patient.[facility]In the event this information is protected by the Federal Confidentiality of Alcohol and Drug Abuse Patient Records regulations: The Federal rules restrict any use of the information to criminally investigate or prosecute any alcohol or drug abuse patient.[facility]In the event this information is protected by the Federal Confidentiality of Alcohol and Drug Abuse Patient Records regulations: The Federal rules restrict any use of the information to criminally investigate or prosecute any alcohol or drug abuse patient.[facility]In the event this information is protected by the Federal Confidentiality of Alcohol and Drug Abuse Patient Records regulations: The Federal rules restrict any use of the information to criminally investigate or prosecute any alcohol or drug abuse patient.[facility]In the event this information is protected by the Federal Confidentiality of Alcohol and Drug Abuse Patient Records regulations: The Federal rules restrict any use of the information to criminally investigate or prosecute any alcohol or drug abuse patient.[facility]In the event this information is protected by the Federal Confidentiality of Alcohol and Drug Abuse Patient Records regulations: The Federal rules restrict any use of the information to criminally investigate or prosecute any alcohol or drug abuse patient.[facility]In the event this information is protected by the Federal Confidentiality of Alcohol and Drug Abuse Patient Records regulations: The Federal rules restrict any use of the information to criminally investigate or prosecute any alcohol or drug abuse patient.[facility]In the event this information is protected by the Federal Confidentiality of Alcohol and Drug Abuse Patient Records regulations: The Federal rules restrict any use of the information to criminally investigate or prosecute any alcohol or drug abuse patient.[facility]In the event this information is protected by the Federal Confidentiality of Alcohol and Drug Abuse Patient Records regulations: The Federal rules restrict any use of the information to criminally investigate or prosecute any alcohol or drug abuse patient.[facility]In the event this information is protected by the Federal Confidentiality of Alcohol and Drug Abuse Patient Records regulations: The Federal rules restrict any use of the information to criminally investigate or prosecute any alcohol or drug abuse patient.[facility]In the event this information is protected by the Federal Confidentiality of Alcohol and Drug Abuse Patient Records regulations: The Federal rules restrict any use of the information to criminally investigate or prosecute any alcohol or drug abuse patient.[facility]In the event this information is protected by the Federal Confidentiality of Alcohol and Drug Abuse Patient Records regulations: The Federal rules restrict any use of the information to criminally investigate or prosecute any alcohol or drug abuse patient.[facility]In the event this information is protected by the Federal Confidentiality of Alcohol and Drug Abuse Patient Records regulations: The Federal rules restrict any use of the information to criminally investigate or prosecute any alcohol or drug abuse patient.[facility]In the event this information is protected by the Federal Confidentiality of Alcohol and Drug Abuse Patient Records regulations: The Federal rules restrict any use of the information to criminally investigate or prosecute any alcohol or drug abuse patient.[facility]In the event this information is protected by the Federal Confidentiality of Alcohol and Drug Abuse Patient Records regulations: The Federal rules restrict any use of the information to criminally investigate or prosecute any alcohol or drug abuse patient.[facility]In the event this information is protected by the Federal Confidentiality of Alcohol and Drug Abuse Patient Records regulations: The Federal rules restrict any use of the information to criminally investigate or prosecute any alcohol or drug abuse patient.[facility]In the event this information is protected by the Federal Confidentiality of Alcohol and Drug Abuse Patient Records regulations: The Federal rules restrict any use of the information to criminally investigate or prosecute any alcohol or drug abuse patient.[facility]In the event this information is protected by the Federal Confidentiality of Alcohol and Drug Abuse Patient Records regulations: The Federal rules restrict any use of the information to criminally investigate or prosecute any alcohol or drug abuse patient.[facility]In the event this information is protected by the Federal Confidentiality of Alcohol and Drug Abuse Patient Records regulations: The Federal rules restrict any use of the information to criminally investigate or prosecute any alcohol or drug abuse patient.[facility]In the event this information is protected by the Federal Confidentiality of Alcohol and Drug Abuse Patient Records regulations: The Federal rules restrict any use of the information to criminally investigate or prosecute any alcohol or drug abuse patient.[facility]In the event this information is protected by the Federal Confidentiality of Alcohol and Drug Abuse Patient Records regulations: The Federal rules restrict any use of the information to criminally investigate or prosecute any alcohol or drug abuse patient.[facility]In the event this information is protected by the Federal Confidentiality of Alcohol and Drug Abuse Patient Records regulations: The Federal rules restrict any use of the information to criminally investigate or prosecute any alcohol or drug abuse patient.[facility]In the event this information is protected by the Federal Confidentiality of Alcohol and Drug Abuse Patient Records regulations: The Federal rules restrict any use of the information to criminally investigate or prosecute any alcohol or drug abuse patient.[facility]In the event this information is protected by the Federal Confidentiality of Alcohol and Drug Abuse Patient Records regulations: The Federal rules restrict any use of the information to criminally investigate or prosecute any alcohol or drug abuse patient.[facility]In the event this information is protected by the Federal Confidentiality of Alcohol and Drug Abuse Patient Records regulations: The Federal rules restrict any use of the information to criminally investigate or prosecute any alcohol or drug abuse patient.[facility]In the event this information is protected by the Federal Confidentiality of Alcohol and Drug Abuse Patient Records regulations: The Federal rules restrict any use of the information to criminally investigate or prosecute any alcohol or drug abuse patient.[facility]In the event this information is protected by the Federal Confidentiality of Alcohol and Drug Abuse Patient Records regulations: The Federal rules restrict any use of the information to criminally investigate or prosecute any alcohol or drug abuse patient.[facility]In the event this information is protected by the Federal Confidentiality of Alcohol and Drug Abuse Patient Records regulations: The Federal rules restrict any use of the information to criminally investigate or prosecute any alcohol or drug abuse patient.[facility] HospitalIn the event this information is protected by the Federal Confidentiality of Alcohol and Drug Abuse Patient Records regulations: The Federal rules restrict any use of the information to criminally investigate or prosecute any alcohol or drug abuse patient.[facility]In the event this information is protected by the Federal Confidentiality of Alcohol and Drug Abuse Patient Records regulations: The Federal rules restrict any use of the information to criminally investigate or prosecute any alcohol or drug abuse patient.[facility]In the event this information is protected by the Federal Confidentiality of Alcohol and Drug Abuse Patient Records regulations: The Federal rules restrict any use of the information to criminally investigate or prosecute any alcohol or drug abuse patient.[facility] HospitalIn the event this information is protected by the Federal Confidentiality of Alcohol and Drug Abuse Patient Records regulations: The Federal rules restrict any use of the information to criminally investigate or prosecute any alcohol or drug abuse patient.[facility] HospitalIn the event this information is protected by the Federal Confidentiality of Alcohol and Drug Abuse Patient Records regulations: The Federal rules restrict any use of the information to criminally investigate or prosecute any alcohol or drug abuse patient.[facility] HospitalIn the event this information is protected by the Federal Confidentiality of Alcohol and Drug Abuse Patient Records regulations: The Federal rules restrict any use of the information to criminally investigate or prosecute any alcohol or drug abuse patient.[facility] HospitalIn the event this information is protected by the Federal Confidentiality of Alcohol and Drug Abuse Patient Records regulations: The Federal rules restrict any use of the information to criminally investigate or prosecute any alcohol or drug abuse patient.[facility] HospitalIn the event this information is protected by the Federal Confidentiality of Alcohol and Drug Abuse Patient Records regulations: The Federal rules restrict any use of the information to criminally investigate or prosecute any alcohol or drug abuse patient.[facility] HospitalIn the event this information is protected by the Federal Confidentiality of Alcohol and Drug Abuse Patient Records regulations: The Federal rules restrict any use of the information to criminally investigate or prosecute any alcohol or drug abuse patient.[facility]In the event this information is protected by the Federal Confidentiality of Alcohol and Drug Abuse Patient Records regulations: The Federal rules restrict any use of the information to criminally investigate or prosecute any alcohol or drug abuse patient.[facility] HospitalIn the event this information is protected by the Federal Confidentiality of Alcohol and Drug Abuse Patient Records regulations: The Federal rules restrict any use of the information to criminally investigate or prosecute any alcohol or drug abuse patient.[facility] HospitalIn the event this information is protected by the Federal Confidentiality of Alcohol and Drug Abuse Patient Records regulations: The Federal rules restrict any use of the information to criminally investigate or prosecute any alcohol or drug abuse patient.[facility] HospitalIn the event this information is protected by the Federal Confidentiality of Alcohol and Drug Abuse Patient Records regulations: The Federal rules restrict any use of the information to criminally investigate or prosecute any alcohol or drug abuse patient.[facility] HospitalIn the event this information is protected by the Federal Confidentiality of Alcohol and Drug Abuse Patient Records regulations: The Federal rules restrict any use of the information to criminally investigate or prosecute any alcohol or drug abuse patient.[facility] HospitalIn the event this information is protected by the Federal Confidentiality of Alcohol and Drug Abuse Patient Records regulations: The Federal rules restrict any use of the information to criminally investigate or prosecute any alcohol or drug abuse patient.[facility] HospitalIn the event this information is protected by the Federal Confidentiality of Alcohol and Drug Abuse Patient Records regulations: The Federal rules restrict any use of the information to criminally investigate or prosecute any alcohol or drug abuse patient.[facility] HospitalIn the event this information is protected by the Federal Confidentiality of Alcohol and Drug Abuse Patient Records regulations: The Federal rules restrict any use of the information to criminally investigate or prosecute any alcohol or drug abuse patient.[facility] HospitalIn the event this information is protected by the Federal Confidentiality of Alcohol and Drug Abuse Patient Records regulations: The Federal rules restrict any use of the information to criminally investigate or prosecute any alcohol or drug abuse patient.[facility]In the event this information is protected by the Federal Confidentiality of Alcohol and Drug Abuse Patient Records regulations: The Federal rules restrict any use of the information to criminally investigate or prosecute any alcohol or drug abuse patient.[facility] HospitalIn the event this information is protected by the Federal Confidentiality of Alcohol and Drug Abuse Patient Records regulations: The Federal rules restrict any use of the information to criminally investigate or prosecute any alcohol or drug abuse patient.[facility]In the event this information is protected by the Federal Confidentiality of Alcohol and Drug Abuse Patient Records regulations: The Federal rules restrict any use of the information to criminally investigate or prosecute any alcohol or drug abuse patient.[facility] HospitalIn the event this information is protected by the Federal Confidentiality of Alcohol and Drug Abuse Patient Records regulations: The Federal rules restrict any use of the information to criminally investigate or prosecute any alcohol or drug abuse patient.[facility] HospitalIn the event this information is protected by the Federal Confidentiality of Alcohol and Drug Abuse Patient Records regulations: The Federal rules restrict any use of the information to criminally investigate or prosecute any alcohol or drug abuse patient.[facility] HospitalIn the event this information is protected by the Federal Confidentiality of Alcohol and Drug Abuse Patient Records regulations: The Federal rules restrict any use of the information to criminally investigate or prosecute any alcohol or drug abuse patient.[facility] HospitalIn the event this information is protected by the Federal Confidentiality of Alcohol and Drug Abuse Patient Records regulations: The Federal rules restrict any use of the information to criminally investigate or prosecute any alcohol or drug abuse patient.[facility]In the event this information is protected by the Federal Confidentiality of Alcohol and Drug Abuse Patient Records regulations: The Federal rules restrict any use of the information to criminally investigate or prosecute any alcohol or drug abuse patient.[facility] HospitalIn the event this information is protected by the Federal Confidentiality of Alcohol and Drug Abuse Patient Records regulations: The Federal rules restrict any use of the information to criminally investigate or prosecute any alcohol or drug abuse patient.[facility]In the event this information is protected by the Federal Confidentiality of Alcohol and Drug Abuse Patient Records regulations: The Federal rules restrict any use of the information to criminally investigate or prosecute any alcohol or drug abuse patient.[facility] HospitalIn the event this information is protected by the Federal Confidentiality of Alcohol and Drug Abuse Patient Records regulations: The Federal rules restrict any use of the information to criminally investigate or prosecute any alcohol or drug abuse patient.[facility]In the event this information is protected by the Federal Confidentiality of Alcohol and Drug Abuse Patient Records regulations: The Federal rules restrict any use of the information to criminally investigate or prosecute any alcohol or drug abuse patient.[facility]In the event this information is protected by the Federal Confidentiality of Alcohol and Drug Abuse Patient Records regulations: The Federal rules restrict any use of the information to criminally investigate or prosecute any alcohol or drug abuse patient.[facility]In the event this information is protected by the Federal Confidentiality of Alcohol and Drug Abuse Patient Records regulations: The Federal rules restrict any use of the information to criminally investigate or prosecute any alcohol or drug abuse patient.[facility]In the event this information is protected by the Federal Confidentiality of Alcohol and Drug Abuse Patient Records regulations: The Federal rules restrict any use of the information to criminally investigate or prosecute any alcohol or drug abuse patient.[facility]In the event this information is protected by the Federal Confidentiality of Alcohol and Drug Abuse Patient Records regulations: The Federal rules restrict any use of the information to criminally investigate or prosecute any alcohol or drug abuse patient.[facility]In the event this information is protected by the Federal Confidentiality of Alcohol and Drug Abuse Patient Records regulations: The Federal rules restrict any use of the information to criminally investigate or prosecute any alcohol or drug abuse patient.[facility]In the event this information is protected by the Federal Confidentiality of Alcohol and Drug Abuse Patient Records regulations: The Federal rules restrict any use of the information to criminally investigate or prosecute any alcohol or drug abuse patient.[facility]In the event this information is protected by the Federal Confidentiality of Alcohol and Drug Abuse Patient Records regulations: The Federal rules restrict any use of the information to criminally investigate or prosecute any alcohol or drug abuse patient.[facility]In the event this information is protected by the Federal Confidentiality of Alcohol and Drug Abuse Patient Records regulations: The Federal rules restrict any use of the information to criminally investigate or prosecute any alcohol or drug abuse patient.[facility]In the event this information is protected by the Federal Confidentiality of Alcohol and Drug Abuse Patient Records regulations: The Federal rules restrict any use of the information to criminally investigate or prosecute any alcohol or drug abuse patient.[facility]In the event this information is protected by the Federal Confidentiality of Alcohol and Drug Abuse Patient Records regulations: The Federal rules restrict any use of the information to criminally investigate or prosecute any alcohol or drug abuse patient.[facility]In the event this information is protected by the Federal Confidentiality of Alcohol and Drug Abuse Patient Records regulations: The Federal rules restrict any use of the information to criminally investigate or prosecute any alcohol or drug abuse patient.[facility]In the event this information is protected by the Federal Confidentiality of Alcohol and Drug Abuse Patient Records regulations: The Federal rules restrict any use of the information to criminally investigate or prosecute any alcohol or drug abuse patient.[facility]In the event this information is protected by the Federal Confidentiality of Alcohol and Drug Abuse Patient Records regulations: The Federal rules restrict any use of the information to criminally investigate or prosecute any alcohol or drug abuse patient.[facility]In the event this information is protected by the Federal Confidentiality of Alcohol and Drug Abuse Patient Records regulations: The Federal rules restrict any use of the information to criminally investigate or prosecute any alcohol or drug abuse patient.[facility] Care Teams (unrecognized sec tion and content) Team Status: Active Member Role Status Dates Gay Enciso NP-C Primary Care Provider Active Team Status: Active Member Role Status Dates Gay Enciso NP-C Primary Care Provider Active Start: November 21, 2024 Adolfo Kang MD Attending Provider Active Sta rt: November 21, 2024 Team Status: Inactive Member Role Status Dates Gay Enciso NP-C Primary Care Provider Active Start: November 21, 2024 End: November 21, 2024 Adolfo Kang MD Attending Provider Active Sta rt: November 21, 2024 End: November 21, 2024 Team Status: Active Member Role Status Dates Gay Enciso NP-C Primary Care Provider Active Start: November 22, 2024 Janes Barfield MD Attending Provider Active Start: November 22, 2024 Team Status: Inactive Member Role Status Dates Gay Enciso NP-C Primary Care Provider Active Start: November 30, 2024 End: November 30, 2024 Margie Arnett NP Attending Provider Active Start: November 30, 2024 End: November 30, 2024 Team Status: Inactive Member Role Status Dates Gay Enciso NP-C Primary Care Provider Active Start: December 12, 2024 End: December 12, 2024 Bandar Portillo APRN Attending Provider Active Start: December 12, 2024 End: December 12, 2024 Team Status: Inactive Member Role Status Dates Gay Ecniso NP-C Primary Care Provider Active Start: January 17, 2025 End: January 17, 2025 Margie Arnett [employer]SEL[employer] Attending Provider Active Start: January 17, 2025 End: January 17, 2025 Team Status: Active Member Role Status DELIA AlvaC Primary Care Provider Active Start: January 31, 2025 Adolfo Kang MD Attending Provider Active Sta rt: January 31, 2025 Adolfo Kang MD Other Provider Active Start: January 31, 2025 Team Status: Inactive Member Role Status Dates WALESKA Galloway Primary Care Provider Active Start: February 14, 2025 End: February 14, 2025 Margie Arnett [employer] COUN[employer] Attending Provider Active Start: February 14, 2025 [...] November 04, 2023 End: November 04, 2023 Technology Sales Representative Relationship Specialty Start Date End Date Gay Enciso, GEAR GENERATOR SET UP OPERATOR.MANAGER EXPORT [address] [place] [address] PCP - General Family Practice 10/24/21 Technology Sales Representative Relationship Specialty Start Date End Date Gay Enciso APRN.MANAGER EXPORT [address] [place] [address] PCP - General Family Medicine 10/24/21 Manuel Ferris MD [address] [place] [address] Referring Family Medicine 02/12/22 Technology Sales Representative Relationship Specialty Start Date End Date Manuel Ferris MD [address] [place] [address] PCP - General Family Medicine 02/27/22 Manuel Ferris MD [address] [place] [address] Referring Family Medicine 02/12/22 Technology Sales Representative Relationship Specialty Start Date End Date Manuel Ferris MD [address] [place] [address] PCP - General Family Medicine 02/27/22 Manuel Ferris MD [address] [place] [address] Referring Family Medicine 02/12/22 Technology Sales Representative Relationship Specialty Start Date End Date Manuel Ferris MD [address] [place] [address] PCP - General Family Medicine 02/27/22 Manuel Ferris MD [address] [place] [address] Referring Family Medicine 02/12/22 Technology Sales Representative Relationship Specialty Start Date End Date Manuel Ferris MD [address] [place] [address] PCP - General Family Medicine 02/27/22 Manuel Ferris MD [address] [place] [address] Referring Family Medicine 02/12/22 Technology Sales Representative Relationship Specialty Start Date End Date Manuel Ferris MD [address] [place] [address] PCP - General Family Medicine 02/27/22 Manuel Ferris MD [address] [place] [address] Referring Family Medicine 02/12/22 Technology Sales Representative Relationship Specialty Start Date End Date Manuel Ferris MD [address] [place] [address] PCP - General Family Medicine 02/27/22 Manuel Ferris MD [address] [place] [address] Referring Family Medicine 02/12/22 Technology Sales Representative Relationship Specialty Start Date End Date Manuel Ferris MD [address] [place] [address] PCP - General Family Medicine 02/27/22 Manuel Ferris MD [address] [place] [address] Referring Family Medicine 02/12/22 Technology Sales Representative Relationship Specialty Start Date End Date Manuel Ferris MD [address] [place] [address] PCP - General Family Medicine 02/27/22 Manuel Ferris MD [address] [place] [address] Referring Family Medicine 02/12/22 Technology Sales Representative Relationship Specialty Start Date End Date Manuel Ferris MD [address] [place] [address] PCP - General Family Medicine 02/27/22 Manuel Ferris MD [address] [place] [address] Referring Family Medicine 02/12/22 Technology Sales Representative Relationship Specialty Start Date End Date Manuel Ferris MD [address] [place] [address] PCP - General Family Medicine 02/27/22 Manuel Ferris MD [address] [place] [address] Referring Family Medicine 02/12/22 Technology Sales Representative Relationship Specialty Start Date End Date Manuel Ferris MD [address] [place] [address] PCP - General Family Medicine 02/27/22 Manuel Ferris MD [address] [place] [address] Referring Family Medicine 02/12/22 Technology Sales Representative Relationship Specialty Start Date End Date Manuel Ferris MD [address] [place] [address] PCP - General Family Medicine 02/27/22 Manuel Ferris MD [address] [place] [address] Referring Family Medicine 02/12/22 Technology Sales Representative Relationship Specialty Start Date End Date Manuel Ferris MD [address] [place] [address] PCP - General Family Medicine 02/27/22 Manuel Ferris MD [address] [place] [address] Referring Family Medicine 02/12/22 Technology Sales Representative Relationship Specialty Start Date End Date Manuel Ferris MD [address] [place] [address] PCP - General Family Medicine 02/27/22 Manuel Ferris MD [address] [place] [address] Referring Family Medicine 02/12/22 Technology Sales Representative Relationship Specialty Start Date End Date Manuel Ferris MD [address] [place] [address] PCP - General Family Medicine 02/27/22 Manuel Ferris MD [address] [place] [address] Referring Family Medicine 02/12/22 Technology Sales Representative Relationship Specialty Start Date End Date Manuel Ferris MD [address] [place] [address] PCP - General Family Medicine 02/27/22 Manuel Ferris MD [address] [place] [address] Referring Family Medicine 02/12/22 Technology Sales Representative Relationship Specialty Start Date End Date Manuel Ferris MD [address] [place] [address] PCP - General Family Medicine 02/27/22 Manuel Ferris MD [address] [place] [address] Referring Family Medicine 02/12/22 Technology Sales Representative Relationship Specialty Start Date End Date Manuel Ferris MD [address] [place] [address] PCP - General Family Medicine 02/27/22 Manuel Ferris MD [address] [place] [address] Referring Family Medicine 02/12/22 Technology Sales Representative Relationship Specialty Start Date End Date Manuel Ferris MD [address] [place] [address] PCP - General Family Medicine 02/27/22 Manuel Ferris MD [address] [place] [address] Referring Family Medicine 02/12/22 Technology Sales Representative Relationship Specialty Start Date End Date Manuel Ferris MD [address] [place] [address] PCP - General Family Medicine 02/27/22 Manuel Ferris MD [address] [place] [id number] Referring Family Medicine 02/12/22 Technology Sales Representative Relationship Specialty Start Date End Date Manuel Ferris MD [address] [place] [address] PCP - General Family Medicine 02/27/22 Manuel Ferris MD [address] [place] [id number] Referring Family Medicine 02/12/22 Technology Sales Representative Relationship Specialty Start Date End Date Manuel Ferris MD PCP - General Family Medicine 02/27/22 Manuel Ferris MD Referring Family Medicine 02/12/22 Technology Sales Representative Relationship Specialty Start Date End Date Manuel Ferris MD PCP - General Family Medicine 02/27/22 Manuel Ferris MD Referring Family Medicine 02/12/22 Technology Sales Representative Relationship Specialty Start Date End Date Manuel Ferris MD PCP - General Family Medicine 02/27/22 Manuel Ferris MD Referring Family Medicine 02/12/22 Technology Sales Representative Relationship Specialty Start Date End Date Manuel Ferris MD PCP - General Family Medicine 02/27/22 Manuel Ferris MD Referring Family Medicine 02/12/22 Technology Sales Representative Relationship Specialty Start Date End Date Manuel Ferris MD PCP - General Family Medicine 02/27/22 Manuel Ferris MD Referring Family Medicine 02/12/22 Technology Sales Representative Relationship Specialty Start Date End Date Manuel Ferris MD PCP - General Family Medicine 02/27/22 Manuel Ferris MD Referring Family Medicine 02/12/22 Technology Sales Representative Relationship Specialty Start Date End Date Manuel Ferris MD PCP - General Family Medicine 02/27/22 Manuel Ferris MD Referring Family Medicine 02/12/22 Technology Sales Representative Relationship Specialty Start Date End Date Manuel Ferris MD PCP - General Family Medicine 02/27/22 Manuel Ferris MD Referring Family Medicine 02/12/22 Technology Sales Representative Relationship Specialty Start Date End Date Manuel Ferris MD PCP - General Family Medicine 02/27/22 Manuel Ferris MD Referring Family Medicine 02/12/22 Technology Sales Representative Relationship Specialty Start Date End Date Manuel Ferris MD PCP - General Family Medicine 02/27/22 Manuel Ferris MD Referring Family Medicine 02/12/22 Technology Sales Representative Relationship Specialty Start Date End Date Manuel Ferris MD PCP - General Family Medicine 02/27/22 Manuel Ferris MD Referring Family Medicine 02/12/22 Technology Sales Representative Relationship Specialty Start Date End Date Manuel Ferris MD PCP - General Family Medicine 02/27/22 aMnuel Ferris MD Referring Family Medicine 02/12/22 Technology Sales Representative Relationship Specialty Start Date End Date Manuel Ferris MD PCP - General Family Medicine 02/27/22 Manuel Ferris MD Referring Family Medicine 02/12/22 Technology Sales Representative Relationship Specialty Start Date End Date Manuel Ferris MD PCP - General Family Medicine 02/27/22 Manuel Ferris MD Referring Family Medicine 02/12/22 Technology Sales Representative Relationship Specialty Start Date End Date Manuel Ferris MD PCP - General Family Medicine 02/27/22 Manuel Ferris MD Referring Family Medicine 02/12/22 Technology Sales Representative Relationship Specialty Start Date End Date Manuel Ferris MD PCP - General Family Medicine 02/27/22 Manuel Ferris MD Referring Family Medicine 02/12/22 Technology Sales Representative Relationship Specialty Start Date End Date Manuel Ferris MD PCP - General Family Medicine 02/27/22 Manuel Ferris MD Referring Family Medicine 02/12/22 Technology Sales Representative Relationship Specialty Start Date End Date Manuel Ferris MD PCP - General Family Medicine 02/27/22 Manuel Ferris MD Referring Family Medicine 02/12/22 Technology Sales Representative Relationship Specialty Start Date End Date Manuel Ferris MD PCP - General Family Medicine 02/27/22 Manuel Ferris MD Referring Family Medicine 02/12/22 Technology Sales Representative Relationship Specialty Start Date End Date Manuel Ferris MD PCP - General Family Medicine 02/27/22 Manuel Ferris MD Referring Family Medicine 02/12/22 Technology Sales Representative Relationship Specialty Start Date End Date Manuel Ferris MD PCP - General Family Medicine 02/27/22 Manuel Ferris MD Referring Family Medicine 02/12/22 Technology Sales Representative Relationship Specialty Start Date End Date Manuel Ferris MD PCP - General Family Medicine 02/27/22 Manuel Ferris MD Referring Family Medicine 02/12/22 Technology Sales Representative Relationship Specialty Start Date End Date Manuel Ferris MD PCP - General Family Medicine 02/27/22 Manuel Ferris MD Referring Family Medicine 02/12/22 Technology Sales Representative Relationship Specialty Start Date End Date Manuel Ferris MD PCP - General Family Medicine 02/27/22 Manuel Ferris MD Referring Family Medicine 02/12/22 Technology Sales Representative Relationship Specialty Start Date End Date Manuel Ferris MD PCP - General Family Medicine 02/27/22 Manuel Ferris MD Referring Family Medicine 02/12/22 Technology Sales Representative Relationship Specialty Start Date End Date Manuel Ferris MD PCP - General Family Medicine 02/27/22 Manuel Ferris MD Referring Family Medicine 02/12/22 Technology Sales Representative Relationship Specialty Start Date End Date Charles Nicole DO [address] [place] [id number] PCP - General 10/22/18 Michelle Jasmine, GEAR GENERATOR SET UP OPERATOR-MANAGER EXPORT [address] [address] Nurse Practitioner Cardiology 06/08/23 Technology Sales Representative Relationship Specialty Start Date End Date Gay Enciso, GEAR GENERATOR SET UP OPERATOR-MANAGER EXPORT [address] [place] [address] PCP - General 07/13/23 Michelle Jasmine, GEAR GENERATOR SET UP OPERATOR-MANAGER EXPORT [address] [address] Nurse Practitioner Cardiology 06/08/23 Aurora Patel MD [address] [address] Consulting Physician Cardiology 06/23/23 Technology Sales Representative Relationship Specialty Start Date End Date Manuel Ferris MD PCP - General Family Medicine 02/27/22 Manuel Ferris MD Referring Family Medicine 02/12/22 Technology Sales Representative Relationship Specialty Start Date End Date Manuel Ferris MD PCP - General Family Medicine 02/27/22 Manuel Ferris MD Referring Family Medicine 02/12/22 Team Status: Active Member Role Status Dates Lui Salomon MD Primary Care Provider Active Start: July 28, 2023 Virgil Green MD Attending Provider Active S tart: July 28, 2023 Technology Sales Representative Relationship Specialty Start Date End Date Manuel Ferris MD PCP - General Family Medicine 02/27/22 Manuel Ferris MD Referring Family Medicine 02/12/22 Team Status: Inactive Member Role Status Dates Lui Salomon MD Primary Care Provider Active Start: December 16, 2023 End: December 16, 2023 Mirela Kelsey MD Attending Provider Active Sta rt: December 16, 2023 End: December 16, 2023 Technology Sales Representative Relationship Specialty Start Date End Date Manuel Ferris MD PCP - General Family Medicine 02/27/22 Manuel Ferris MD Referring Family Medicine 02/12/22 Technology Sales Representative Relationship Specialty Start Date End Date Manuel Ferris MD PCP - General Family Medicine 02/27/22 Manuel Ferris MD Referring Family Medicine 02/12/22 Technology Sales Representative Relationship Specialty Start Date End Date Manuel Ferris MD PCP - General Family Medicine 02/27/22 Manuel Ferris MD Referring Family Medicine 02/12/22 Technology Sales Representative Relationship Specialty Start Date End [...] February 16, 2024 End: February 16, 2024 Gay Enciso NP-C Primary [...] February 28, 2024 End: February 28, 2024 Technology Sales Representative Relationship Specialty Start Date End Date Charles Nicole MD [address] [place] [address] PCP - General Family Medicine 02/09/24 Team Status: Inactive Member Role Status Dates WALESKA Galloway Primary Care Provider Active Start: March 16, 2024 End: March 16, 2024 Bandar Portillo APRN Attending Provider Active Start: March 16, 2024 End: March 16, 2024 Technology Sales Representative Relationship Specialty Start Date End Date Charles Nicole MD [address] [place] [address] PCP - General Family Medicine 02/09/24 Technology Sales Representative Relationship Specialty Start Date End Date Charles Nicole MD [address] [place] [facility] [place] [address] PCP - General Family Medicine 02/09/24 Technology Sales Representative Relationship Specialty Start Date End Date Charles Nicole MD [address] [place] [facility] [place] [address] PCP - General Family Medicine 02/09/24 Technology Sales Representative Relationship Specialty Start Date End Date Charles Nicole MD [address] [place] [facility] [place] [address] PCP - General Family Medicine 02/09/24 Technology Sales Representative Relationship Specialty Start Date End Date Charles Nicole MD [address] [place] [facility] [place] [address] PCP - General Family Medicine 02/09/24 Technology Sales Representative Relationship Specialty Start Date End Date Manuel Ferris MD PCP - General Family Medicine 02/27/22 Manuel Ferris MD Referring Family Medicine 02/12/22 Technology Sales Representative Relationship Specialty Start Date End Date Charles Nicole MD [address] [place] [facility] [place] [address] PCP - General Family Medicine 02/09/24 Technology Sales Representative Relationship Specialty Start Date End Date Charles Nicole MD [address] [place] [facility] [place] [address] PCP - General Family Medicine 02/09/24 Technology Sales Representative Relationship Specialty Start Date End Date Charles Nicole MD [address] [place] [address] PCP - General Family Medicine 02/09/24 Technology Sales Representative Relationship Specialty Start Date End Date Charles Nicole MD [address] [place] [address] PCP - General Family Medicine 02/09/24 Technology Sales Representative Relationship Specialty Start Date End Date Manuel Ferris MD PCP - General Family Medicine 02/27/22 Manuel Ferris MD Referring Family Medicine 02/12/22 Technology Sales Representative Relationship Specialty Start Date End Date Charles Nicole MD [address] [place] [address] PCP - General Family Medicine 02/09/24 Technology Sales Representative Relationship Specialty Start Date End Date Manuel Ferris MD PCP - General Family Medicine 02/27/22 Manuel Ferris MD Referring Family Medicine 02/12/22 Technology Sales Representative Relationship Specialty Start Date End Date Manuel Ferris MD PCP - General Family Medicine 02/27/22 Manuel Ferris MD Referring Family Medicine 02/12/22 Technology Sales Representative Relationship Specialty Start Date End Date Charles Nicole MD [address] [place] [address] PCP - General Family Medicine 02/09/24 Technology Sales Representative Relationship Specialty Start Date End Date Manuel Ferris MD PCP - General Family Medicine 02/27/22 Manuel Ferris MD Referring Family Medicine 02/12/22 Manuel Ferris MD [address] [place] [address] Referring Family Medicine 07/06/24 Team Status: Inactive Member Role Status Dates Gay Enciso VETERANS' COUNSELOR-C Primary Care Provider Active Start: July 10, 2024 End: July 10, 2024 Adolfo Kang MD Attending Provider Active Sta rt: July 10, 2024 End: July 10, 2024 Technology Sales Representative Relationship Specialty Start Date End Date Manuel Ferris MD PCP - General Family Medicine 02/27/22 Manuel Ferris MD Referring Family Medicine 02/12/22 Manuel Ferris MD [address] [place] [id number] Referring Family Medicine 07/06/24 Technology Sales Representative Relationship Specialty Start Date End Date Manuel Ferris MD PCP - General Family Medicine 02/27/22 Manuel Ferris MD Referring Family Medicine 02/12/22 Manuel Ferris MD [address] [place] [address] Referring Family Medicine 07/06/24 Team Status: Inactive Member Role Status Dates Gay Enciso , CARISSA-C Primary Care Provider Active Start: July 19, 2024 End: July 19, 2024 Adolfo Kang MD Attending Provider Active Sta rt: July 19, 2024 End: July 19, 2024 Technology Sales Representative Relationship Specialty Start Date End Date Gay Enciso MD [address] [place] [address] Referring Physician Family Medicine 07/18/24 Technology Sales Representative Relationship Specialty Start Date End Date Manuel Ferris MD PCP - General Family Medicine 02/27/22 Manuel Ferris MD Referring Family Medicine 02/12/22 Manuel Ferris MD [address] [place] [address] Referring Family Medicine 07/06/24 Technology Sales Representative Relationship Specialty Start Date End Date Gay Enciso MD [address] [place] [address] Referring Physician Family Medicine 07/18/24 Technology Sales Representative Relationship Specialty Start Date End Date Gay Enciso APRN-MANAGER EXPORT [address] [place] [address] PCP - General 07/13/23 Michelle Jasmine APRN-MANAGER EXPORT Nurse Practitioner Cardiology 06/08/23 Aurora Patel MD [...] July 31, 2024 End: July 31, 2024 Technology Sales Representative Relationship Specialty Start Date End Date Manuel Ferris MD PCP - General Family Medicine 02/27/22 Manuel Ferris MD Referring Family Medicine 02/12/22 Manuel Ferris MD [address] [place] [address] Referring Family Medicine 07/06/24 Technology Sales Representative Relationship Specialty Start Date End Date Manuel Ferris MD PCP - General Family Medicine 02/27/22 Manuel Ferris MD Referring Family Medicine 02/12/22 Manuel Ferris MD [address] [place] [id number] Referring Family Medicine 07/06/24 Technology Sales Representative Relationship Specialty Start Date End Date Manuel Ferris MD PCP - General Family Medicine 02/27/22 Manuel Ferris MD Referring Family Medicine 02/12/22 Manuel Ferris MD [address] [place] [address] Referring Family Medicine 07/06/24 Team Status: Inactive Member Role Status Dates Gay Enciso , VETERANS' COUNSELOR-C Primary Care Provider Active Start: August 22, 2024 End: August 22, 2024 Adolfo Kang MD Attending Provider Active Sta rt: August 22, 2024 End: August 22, 2024 Technology Sales Representative Relationship Specialty Start Date End Date Gay Enciso MD [address] [place] [address] Referring Physician Family Medicine 07/18/24 Technology Sales Representative Relationship Specialty Start Date End Date Manuel Ferris MD PCP - General Family Medicine 02/27/22 Manuel Ferris MD Referring Family Medicine 02/12/22 Manuel Ferris MD [address] [place] [address] Referring Family Medicine 07/06/24 Technology Sales Representative Relationship Specialty Start Date End Date Manuel Ferris MD PCP - General Family Medicine 02/27/22 Manuel Ferris MD Referring Family Medicine 02/12/22 Manuel Ferris MD [address] [place] [address] Referring Family Medicine 07/06/24 Technology Sales Representative Relationship Specialty Start Date End Date Gay Enciso MD [address] [place] [address] Referring Physician Family Medicine 07/18/24 Technology Sales Representative Relationship Specialty Start Date End Date Gay Enciso MD [address] [place] [address] Referring Physician Family Medicine 07/18/24 Technology Sales Representative Relationship Specialty Start Date End Date Manuel Ferris MD PCP - General Family Medicine 02/27/22 Manuel Ferris MD Referring Family Medicine 02/12/22 Manuel Ferris MD [address] [place] [phone] Referring Family Medicine 07/06/24 Technology Sales Representative Relationship Specialty Start Date End Date Manuel Ferris MD PCP - General Family Medicine 02/27/22 Manuel Ferris MD Referring Family Medicine 02/12/22 Manuel Ferris MD [address] [place] [phone] Referring Family Medicine 07/06/24 Technology Sales Representative Relationship Specialty Start Date End Date Manuel Ferris MD PCP - General Family Medicine 02/27/22 Manuel Ferris MD Referring Family Medicine 02/12/22 Manuel Ferris MD [address] [place] [facility] [place] [address] Referring Family Medicine 07/06/24 Technology Sales Representative Relationship Specialty Start Date End Date Manuel Ferris MD PCP - General Family Medicine 02/27/22 Manuel Ferris MD Referring Family Medicine 02/12/22 Manuel Ferris MD [address] [place] [address] Referring Family Medicine 07/06/24 Technology Sales Representative Relationship Specialty Start Date End Date Manuel Ferris MD PCP - General Family Medicine 02/27/22 Manuel Ferris MD Referring Family Medicine 02/12/22 Manuel Ferris MD [address] [place] [address] Referring Family Medicine 07/06/24 Technology Sales Representative Relationship Specialty Start Date End Date Manuel Ferris MD PCP - General Family Medicine 02/27/22 Manuel Ferris MD Referring Family Medicine 02/12/22 Manuel Ferris MD [address] [place] [address] Referring Family Medicine 07/06/24 Technology Sales Representative Relationship Specialty Start Date End Date Manuel Ferris MD PCP - General Family Medicine 02/27/22 Manuel Ferris MD Referring Family Medicine 02/12/22 Manuel Ferris MD [address] [place] [address] Referring Family Medicine 07/06/24 Technology Sales Representative Relationship Specialty Start Date End Date Manuel Ferris MD PCP - General Family Medicine 02/27/22 Manuel Ferris MD Referring Family Medicine 02/12/22 Manuel Ferris MD [address] [place] [address] Referring Family Medicine 07/06/24 Technology Sales Representative Relationship Specialty Start Date End Date Manuel Ferris MD PCP - General Family Medicine 02/27/22 Manuel Ferris MD Referring Family Medicine 02/12/22 Manuel Ferris MD [address] [place] [address] Referring Family Medicine 07/06/24 Technology Sales Representative Relationship Specialty Start Date End Date Manuel Ferris MD PCP - General Family Medicine 02/27/22 Manuel Ferris MD Referring Family Medicine 02/12/22 Manuel Ferris MD [address] [place] [address] Referring Family Medicine 07/06/24 Technology Sales Representative Relationship Specialty Start Date End Date Manuel Ferris MD PCP - General Family Medicine 02/27/22 Manuel Ferris MD Referring Family Medicine 02/12/22 Manuel Ferris MD [address] [place] [address] Referring Family Medicine 07/06/24 Technology Sales Representative Relationship Specialty Start Date End Date Manuel Ferris MD PCP - General Family Medicine 02/27/22 Manuel Ferris MD Referring Family Medicine 02/12/22 Manuel Ferris MD [address] [place] [address] Referring Family Medicine 07/06/24 Technology Sales Representative Relationship Specialty Start Date End Date Manuel Ferrsi MD PCP - General Family Medicine 02/27/22 Manuel Ferris MD Referring Family Medicine 02/12/22 Manuel Ferris MD [address] [place] [address] Referring Family Medicine 07/06/24 Team Status: Inactive Member Role Status Dates WALESKA Galloway Primary Care Provider Active Start: September 06, 2024 End: September 06, 2024 Adolfo Kang MD Attending Provider Active Sta rt: September 06, 2024 End: September 06, 2024 Team Status: Inactive Member Role Status Dates WALESKA Galloway Primary Care Provider Active Start: November 13, 2024 End: November 13, 2024 Adolfo Kang MD Attending Provider Active Sta rt: November 13, 2024 End: November 13, 2024 Technology Sales Representative Relationship Specialty Start Date End Date Gay Enciso MD [address] [place] [address] Referring Physician Family Medicine 07/18/24 Technology Sales Representative Relationship Specialty Start Date End Date Manuel Ferris MD PCP - General Family Medicine 02/27/22 Manuel Ferris MD Referring Family Medicine 02/12/22 Manuel Ferris MD [address] [place] [address] Referring Family Medicine 07/06/24 Technology Sales Representative Relationship Specialty Start Date End Date Manuel Ferris MD PCP - General Family Medicine 02/27/22 Manuel Ferris MD Referring Family Medicine 02/12/22 Manuel Ferris MD [address] [place] [phone] Referring Family Medicine 07/06/24 Technology Sales Representative Relationship Specialty Start Date End Date Manuel Ferris MD PCP - General Family Medicine 02/27/22 Manuel Ferris MD Referring Family Medicine 02/12/22 Manuel Ferris MD [address] [place] [address] Referring Family Medicine 07/06/24 Team Status: Inactive Member Role Status Dates Gay Enciso NP-C Primary Care Provider Active Start: January 31, 2025 End: January 31, 2025 Adolfo Kang MD Attending Provider Active Sta rt: January 31, 2025 End: January 31, 2025 Technology Sales Representative Relationship Specialty Start Date End Date Gay Enciso MD [address] [place], [place] [phone] Referring Physician Family Medicine 07/18/24 Technology Sales Representative Relationship Specialty Start Date End Date Gay Enciso MD [address] [place] [address] Referring Physician Family Medicine 07/18/24 Inactive Administered [...] BE BASED ON THE PRIMARY CLINICAL RECORDS. [employer] provides no warranty or guarantee of the accuracy or completeness of information in this document.
[2025-02-26 16:15] LABS: Alanine Aminotransferase 60 U/L (14-59); Albumin Globulin Ratio 0.7; Albumin Level 3.2 g/dL (3.4-5.0); Alkaline Phosphatase 85 U/L (46-116); Anion Gap 18.3; Aspartate Amino Transferase 19 U/L (15-37); Blood Urea Nitrogen 11.0 mg/dL (7.0-18.0); Calcium 9.1 mg/dL (8.5-10.1); Carbon Dioxide 23.4 mmol/L (21.0-32.0); Chloride 104 mmol/L (98-107); Estimated GFR (African America >60 (>=60 mL/min/1.73m^2); Estimated GFR (Non-African Ame >60 (>=60 mL/min/1.73m^2); Globulin 4.7 g/dL; Glucose 212 mg/dL (74-106); Potassium 3.7 mmol/L (3.5-5.1); Sodium 142 mmol/L (136-145); Total Protein 7.9 g/dL (6.4-8.2)
[2025-02-26 17:00] LABS: Lactate/Lactic Acid 3.2 mmol/L (0.4-2.0)
[2025-02-26 17:03] LABS: C. Difficile PCR NEGATIVE
== END 2025-02-26 15:18 | disposition home or self-care (01) ==
LOC: LAB 15:18
PROVIDERS: PCP Nurse Practitioner Family; Visit Provider Nurse Practitioner Family
DX: R79.89 Other specified abnormal findings of blood chemistry (principal)
CPT/HCPCS: 36415; 80053; 83605; 87493

== ENCOUNTER 2025-02-26 17:43 | Emergency (ER) | payer OTHER, SELFPAY ==
--- OUTSIDE RECORDS SUMMARY | 2025-02-14 06:08 | XMS_ITS | Continuity of Care Document ---
Author Organization [facility] Address [address] [place] [address] Phone Care Team Providers Care Maths Tutor Name Role Phone Gay DeL a Torre NP-C Primary Care Provider Adolfo Kang MD Attending Provider Janes Barfield MD Attending Provider Margie Arnett NP Attending Provider [phone] Bandar Portillo APRN Attending Provider Adolfo Kang MD Other Provider [phone] Care Teams Patient Care Team Team Status: Active Member Role Status Dates Gay De La Torre NP-C Primary Care Provider Active Visit Care Team Team Status: Active Member Role Status Dates Gay De La Torre NP-Ananya Primary Care Provider Active Start: November 21, 2024 Adolfo Kang MD Attending Provider Active Sta rt: November 21, 2024 Visit Care Team Team Status: Inactive Member Role Status Dates Gay De La Torre NP-C Primary Care Provider Active Start: November 21, 2024 End: November 21, 2024 Adolfo Kang MD Attending Provider Active Sta rt: November 21, 2024 End: November 21, 2024 Patient Care Team Team Status: Active Member Role Status Dates Gay De La Torre NP-C Primary Care Provider Active Start: November 22, 2024 Janes Barfield MD Attending Provider Active Start: November 22, 2024 Visit Care Team Team Status: Inactive Member Role Status Dates Gay De La Torre NP-C Primary Care Provider Active Start: November 30, 2024 End: November 30, 2024 Margie Arnett [employer] Attending Provider Active Start: November 30, 2024 End: November 30, 2024 Visit Care Team Team Status: Inactive Member Role Status Dates Gay De La Torre NP-C Primary Care Provider Active Start: December 12, 2024 End: December 12, 2024 Bandar Portillo APRN Attending Provider Active Start: December 12, 2024 End: December 12, 2024 Visit Care Team Team Status: Inactive Member Role Status Dates Gay De La Torre NP-C Primary Care Provider Active Start: January 17, 2025 End: January 17, 2025 Margie Arnett [employer] Attending Provider Active Start: January 17, 2025 End: January 17, 2025 Patient Care Team Team Status: Active Member Role Status Dates Gay De La Torre NP-C Primary Care Provider Active Start: January 31, 2025 Adolfo Kang MD Attending Provider Active Sta rt: January 31, 2025 Adolfo Kang MD Other Provider Active Start: January 31, 2025 Patient Care Team Team Status: Inactive Member Role Status Dates Gay De La Torre NP-C Primary Care Provider Active Start: February 14, 2025 End: February 14, 2025 Margie Arnett [employer] Attending Provider Active Start: February 14, 2025 End: February 14, 2025 Chief Complaint and Reason for Visit Chief Complaint Admit Date MARK LUMBAR FACET MBB L3,4,5 November 21 12:49pm BH November 22, 2024 2:38p m FOLLOW UP AFTER MARK LUMBAR MBB November 9:03am nausea/Burning under left rib December 12, 2024 10:42am reshedule procedure January 17, 2025 10 :29am Back Pain January 31, 2025 10:00am 2 week follow up after RFA January 9:23am Reason for Visit Admit Date Lumbosacral spondylosis November 30, 2024 9:03am Other chronic pain November 30, 2024 9:03 am Sacroiliitis November 30, 2024 9:03 am Abdominal burning sensation in left uppe r quadrant December 12, 2024 10:42am Abdominal mass December 12, 2024 10:4 2am Abdominal pain December 12, 2024 10:4 2am Bloating December 12, 2024 10:4 2am Constipation December 12, 2024 10:4 2am Dyspepsia December 12, 2024 10:4 2am Lumbosacral spondylosis January 17 10:29am Other chronic pain January 17, 2025 10 :29am Sacroiliitis January 17, 2025 10 :29am Lumbosacral spondylosis February 14, 2025 9:23am Mid back pain February 14, 2025 9:23am Other chronic pain February 14, 2025 9:23am Sacroiliitis February 14, 2025 9:23am Reason for Referral Referring Provider Name Referring Provider Address Referring Provider Phone Referral Date Requested Appointment Date Referral Reason Adolfo Kang [address] [address] Work Phone: Call Dr. Ameena brandon office to schedule a follow up appointment if you do not already have one scheduled Allergies, Adverse Reactions, Alerts Allergen Type Severity Reaction Last Updated Verified Status clindamycin Allergy Unknown Unknown Reaction Septemb er 2024 9:42am Yes Active sulfamethoxazole Allergy Unknown lymph swelling Sept ember 2024 9:42am Yes Active trimethoprim Allergy Unknown lymph swelling Septembe r 2024 9:42am Yes Active Social History Smoking Status Status Start Date End Date Date of Observa tion Smokes tobacco daily (finding) January 31, 2025 10:11am Observation Status Observation Response Date of Response Legal Sex Female (finding) Sex Assigned At Female 1980 Family History Relationship Condition Age at Onset Recorded Date/T michelle father Malignant neoplasm of stomach Unknown Unknown mother Crohn's disease Unknown Problems Active Problems Medical Problem Onset Date Status Mid back pain Unknown Active Duct ectasia of breast Unknown Active C. difficile diarrhea Unknown Active Recurrent Clostridioides difficile diarrhea Unkn own Active Nipple discharge in female Unknown Activ e Sacroiliitis Unknown Active Lupus Unknown Active Abdominal mass Unknown Active Diarrhea Unknown Active Dyspepsia Unknown Active Dyspepsia Unknown Active Hyperlipidemia Unknown Active Insulin resistance Unknown Active Abdominal burning sensation in left upper quadra nt Unknown Active Lumbosacral spondylosis Unknown Active Other chronic pain Unknown Active Bloating Unknown Active Abdominal pressure Unknown Active GERD (gastroesophageal reflux disease) Unknown Active Abdominal pain Unknown Active Abdominal pain Unknown Active Hypertension Unknown Active Constipation Unknown Active Medications Medication Status Dose Units Route Directions Qty Days St art Date Stop Date End Date Instructions Adherence Pantoprazol e 20 mg tablet,parish yed release (DR/EC) Discont inued 20 MG PO Daily 2024 1:00am November 13, 2024 11:24 am Pantoprazol e 20 mg tablet,parish yed release (DR/EC) Active 40 MG PO Twice daily November 13, 2024 11:24a m Complies with drug therapy Acetaminoph en (Acetaminop hen Extra Strength) 500 mg tablet Active 1000 MG PO Every 6 hours as needed for pain 2024 12:00a m Complies with drug therapy Ibuprofen 400 mg tablet Active 400 MG PO 2-3 TIMES PER DAY as needed for pain 2024 12:00a m Complies with drug therapy Alprazolam 0.25 mg tablet Discont inued 0.25 MG PO Daily as needed for anxiety October 20, 2023 12:00a m July 31, 2024 4:04p m Belimumab (Benlysta) 200 mg/mL auto-inject or Discont inued 200 MG SUBCUT every week October 20, 2023 12:00a m November 13, 2024 11:23 am Clobetasol 0.05 % shampoo Active 1 APPLIC TOPICA L As Directed October 20, 2023 12:00a m Complies with drug therapy Fluocinonid e 0.05 % solution Active 1 APPLIC TOPICA L Daily as needed for rash October 20, 2023 12:00a m Complies with drug therapy Hydroxychlo roquine 200 mg tablet Active 400 MG PO Daily October 20, 2023 12:00a m Complies with drug therapy Azathioprin e 50 mg tablet Discont inued 50 MG PO Three times daily October 20, 2023 12:00a m November 13, 2024 11:22 am Pravastatin 20 mg tablet Discont inued 20 MG PO Daily October 20, 2023 12:00a m October 20, 2023 1:08p m Prednisone 10 mg tablet Active 20 MG PO Daily October 20, 2023 12:00a m Complies with drug therapy Pregabalin 75 mg capsule Active 225 MG PO Daily as needed for nerve pain October 20, 2023 12:00a m Complies with drug therapy Ergocalcife rol (Vitamin D2) 1,250 mcg (50,000 unit) capsule Discont inued 82824 UNIT PO every week October 20, 2023 12:00a m November 13, 2024 11:24 am Metoprolol Tartrate 50 mg tablet Active 200 MG PO Daily October 20, 2023 12:00a m Complies with drug therapy Fidaxomicin (Dificid) 200 mg tablet Discont inued 200 MG PO .every other day October 20, 2023 12:00a m December 16, 2023 2:11p m Fidaxomicin (Dificid) 200 mg tablet Discont inued 200 MG PO Every 12 hours 20 October 20, 2023 12:00a m December 16, 2023 2:11p m Ergocalcife rol (Vitamin D2) 1,250 mcg (50,000 unit) capsule Active 04516 UNIT PO 3 Times a week November 13, 2024 11:23a m Complies with drug therapy Gentamicin 0.1 % ointment Discont inued 1 APPLIC TOPICA L Three times daily 15 November 22, 2023 12:00a m December 16, 2023 2:12p m belimumab (Benlysta) Active IV every month November 13, 2024 12:00a m Complies with drug therapy Dicyclomine 10 mg capsule Discont inued 10 MG PO Twice daily as needed for abdominal pain 60 September 22, 2023 12:00a m October 20, 2023 1:07p m Take 1 capsule orally twice a day prn Pantoprazol e 40 mg tablet,parish yed release (DR/EC) Discont inued 40 MG PO Daily 30 September 22, 2023 12:00a m October 20, 2023 1:07p m Take 1 tablet orally once a day. Omeprazole 40 mg capsule,del ayed release(DR/ EC) Discont inued 40 MG PO Daily 30 Octobe r 2023 12:00a m Febru carlos 2024 10:52 am Clonazepam (Klonopin) 0.5 mg tablet Active 0.5 MG PO Daily July 31, 2024 12:00a m Complies with drug therapy Nystatin 100,000 unit/mL suspension Discont inued 1 ML PO Daily July 31, 2024 12:00a m December 12, 2024 10:49 am swish and swallow Thiamine Hcl (Vitamin B1) 100 mg tablet Active 100 MG PO Daily December 12, 2024 12:00a m Complies with drug therapy Folic Acid 1 mg tablet Active 1 MG PO Daily December 12, 2024 12:00a m Complies with drug therapy Duloxetine 20 mg capsule,del ayed release(DR/ EC) Active 20 MG PO Daily December 12, 2024 12:00a m Complies with drug therapy gammagard Discont inued IV December 12, 2024 12:00a m December 12, 2024 10:58 am gammagard Active IV EVERY 4 WEEKS December 12, 2024 10:58a m Complies with drug therapy Immunizations Immunization Event Date Not Given Reason Dose Number [employer] Lot Number Vaccine Information Statement (VIS) Detail Administration Location COVID-19 mRNA, Comirnaty ([employer] September 28, 2020 COVID-19 mRNA, Comirnaty ([employer] October 19, 2020 COVID-19 mRNA, Comirnaty ([employer] May 26, 2021 COVID-19 mRNA Bivalent Booster ([employer] February 08, 2022 COVID-19 ([employer]) [id number] 12Y and older February 23, 2023 Vital Signs Vital Reading Result Reference Range Collection Date/Time Heart Rate 64 /min 60-100 November 30, 2024 9:08am Oxygen saturation by Pulse oximetry 98 % 95-100 November 30, 2024 9:08 am BP Systolic 120 mm[Hg] 100-140 November 30, 2024 9:08am BP Diastolic 84 mm[Hg] 60-100 November 30, 2024 9:08am Height 67 [in_i] December 12, 2024 10:45am Weight 129.72 kg December 12, 2024 10:45am Heart Rate 63 /min 60-100 December 12, 2024 10:45am BP Systolic 109 mm[Hg] 100-140 December 12, 2024 10:45am BP Diastolic 71 mm[Hg] 60-100 December 12, 2024 10:45am BMI (Body Mass Index) 44.8 kg/m2 November 222024 10:45am Height 67 [in_i] January 17 10:38am Heart Rate 92 /min 60-100 January 17 10:38am Oxygen saturation by Pulse oximetry 96 % 95-100 January 17, 2025 10 :38am BP Systolic 108 mm[Hg] 100-140 January 17 10:38am BP Diastolic 62 mm[Hg] 60-100 January 17 10:38am Height 67 [in_i] January 31, 2025 10:11am Weight 127.00 kg January 31, 2025 10:11am Heart Rate 86 /min 60-100 January 31, 2025 11:40am Respiratory rate 18 /min -January 222024 11:40am Oxygen saturation by Pulse oximetry 94 % 95-100 January 31, 2025 11:40am BP Systolic 116 mm[Hg] 100-140 January 31, 2025 11:40am BP Diastolic 80 mm[Hg] 60-100 January 31, 2025 11:40am Height 67 [in_i] February 14, 2025 9:42am Heart Rate 65 /min 60-100 February 14, 2025 9:42am Oxygen saturation by Pulse oximetry 97 % 95-100 February 14, 2025 9:42am BP Systolic 118 mm[Hg] 100-140 February 14, 2025 9:42am BP Diastolic 76 mm[Hg] 60-100 February 14, 2025 9:42am Advance Directives Advance Directive Response Recorded Date/ Time Advance Directives No September 17 019 2:40pm Insurance Providers Guarantor Ariadna Paniagua Address [address] [place] [id number] Contact Info. Home Phone: Payer Policy Id Subscriber's Name Subscriber Id Effective Date Expiration Date [employer] [id number] Ariadna Paniagua [id number] Encounters Encounter Location(s) Arrival/Admit Date Discharge/Depart Date Provider(s) Non-patient / Non-visit -[facility] November 21, 2024 12:30pm Adolfo Kang MD Departed Physician/Provi ochoa Office Visit -[facility] November 21, 2024 12:49pm November 21, 2024 1:40pm Adolfo Kang MD Registered [facility] November 22, 2024 2:38pm Janes Barfield MD Departed Physician/Provi ochoa Office Visit -[facility] November 30, 2024 9:03am November 30, 2024 9:30am Margie Arnett NP Departed Physician/Provi ochoa Office Visit -[facility] December 12, 2024 10:42am December 12, 2024 11:13am Lynne Childers APRN Departed Physician/Provi ochoa Office Visit -[facility] January 17, 2025 10:29am January 17, 2025 11:04am Margie Arnett NP Non-patient / Non-visit -[facility] January 31, 2025 10:00am Adolfo Kang MD Departed Physician/Provi ochoa Office Visit -[facility] February 14, 2025 9:23am February 14, 2025 10:07am Margie Arnett NP Recent Diagnosis Onset Date Admit Date Lumbosacral spondylosis Unknown November 9:03am Other chronic pain Unknown November 30 9:03am Sacroiliitis Unknown November 30, 2024 9:03am Abdominal burning sensation in left upper quadrant Unknown December 12, 2024 10:42am Abdominal mass Unknown December 12, 2024 10:42am Abdominal pain Unknown December 12, 2024 10:42am Bloating Unknown December 12, 2024 10:42am Constipation Unknown December 12, 2024 10:42am Dyspepsia Unknown December 12, 2024 10:42am Lumbosacral spondylosis Unknown December 232024 10:29am Other chronic pain Unknown January 17, 2025 10:29am Sacroiliitis Unknown January 17 10:29am Lumbosacral spondylosis Unknown 2024 9:23am Mid back pain Unknown February 14, 2025 9:23am Other chronic pain Unknown January 9:23am Sacroiliitis Unknown February 14, 2025 9:23am Assessments Diagnosis Onset Date Resolution Status Admit Date Lumbosacral spondylosis acute J bart 2024 9:03am Other chronic pain acute November 212024 9:03am Sacroiliitis acute November 30 9:03am Abdominal burning sensation in left upper quadrant acute December 12 10:42am Abdominal mass acute December 12, 2024 10:42am Abdominal pain acute December 12, 2024 10:42am Bloating acute December 12 10:42am Constipation acute December 12 10:42am Dyspepsia acute December 12 10:42am Lumbosacral spondylosis acute A ugust 2024 10:29am Other chronic pain acute January 17, 2025 10:29am Sacroiliitis acute January 17, 2025 10:29am Lumbosacral spondylosis acute S eptember 2024 9:23am Mid back pain acute January 232024 9:23am Other chronic pain acute 2024 9:23am Sacroiliitis acute February 142024 9:23am Plan of Treatment Author Chet [facility] Authored November 30, 2024 9:24 am 44 year old female here for follow up status post lumbar facet medial branch nerve block bilaterally at the L3 and L4 levels, as well as L5 dorsal ramus under fluoroscopic guidance. Patient reports 80% pain relief as well as improved walking, standing and daily functions for 4-5 hours following the procedure. She continues to complain of low back pain today as expected. She denies any procedure related complications. Anatomy of spine as well as other treatment options were discussed in detail with the patient in regards to patients condition. I recommend we proceed with a bilaeral lumbar facet medial branch radiofrequency ablation under fluoroscopic guidance. Risks and benefits of procedure explained to patient; patient verbalizes understanding. If her pain persists, we can consider repeating the sacroiliac joint injection under fluoroscopic guidance. Follow up after procedure. Author Chet [facility] Authored January 17, 2025 11 :02am 44 year old female here for follow up to discuss chronic pain. She voices complaints of low back pain, denying radicular symptoms. She was previously scheduled for a bilateral lumbar facet RFA, however, canceled this due to a fall. She would like to reschedule this. Anatomy of spine as well as other treatment options were discussed in detail with the patient in regards to patients condition. I recommend we proceed with a bilateral lumbar facet medial branch radiofrequency ablation under fluoroscopic guidance, as previously discussed. Risks and benefits of procedure explained to patient; patient verbalizes understanding. If her pain persists, we can consider repeating the sacroiliac joint injection under fluoroscopic guidance. Follow up after procedure. Author Chet [facility] Authored February 14, 2025 10:07am 44 year old female here for follow up status post lumbar facet medial branch radiofrequency ablation bilaterally at L3, L4 as well as L5 dorsal ramus for denervation of L4-5, L5-S1 facet joints under fluoroscopic guidance. Patient reports minimal pain relief as well as improved walking, standing and daily functions following procedure. She voices continued complaints of low back pain as well as a sunburn type feeling to the right hip and thigh. She also notes a jolting pain down the bilateral thighs every morning, but this doesn't last. She also voices complaints of burning pain to the mid back. Anatomy of spine as well as other treatment options were discussed in detail with the patient in regards to patients condition. I recommend that she give the procedure more time as it can take up to 6 weeks for maximum relief. She is counseled against any excessive bending, lifting or twisting. She is encouraged to continue with conservative treatment options such as ice/heat or topical creams as tolerated in the meantime. If her pain persists, we can consider repeating the sacroiliac joint injection under fluoroscopic guidance in the future, if applicable. Follow up in 4 weeks. I recommend we proceed with updated imaging of the thoracic spine to further evaluate her pain. Patient states she had trigger point injections to the mid back with Neurology in the past. She is encouraged to discuss different treatment options with Dr Kang in the future. In the meantime, she is encouraged to start physical therapy for strength, endurance, ROM and flexibility exercises and stretches to achieve the maximum ability to perform daily activities and movements while managing her pain. Author Bandar Portillo [facility] Authored December 12, 2024 11:2 6am A 44-year-old female patient with diagnosis of dyspepsia, GERD, abdominal burning, abdominal pain, bloating, concern for abdominal mass and constipation Uptitrate patient PPI from Protonix 40 mg once daily to 40 mg twice daily as patient symptoms are consistent with epigastric pain which would be related to acid reflux Initiate MiraLAX titration patient bowel movements alternate between constipation and diarrhea. Patient constipation can extend for 2 to 3 days which then leads to diarrhea for a day or 2, consistent with overflow diarrhea related to constipation Initially lifestyle modification with regard to overflow diarrhea including increasing her dietary fiber with Metamucil twice daily, patient can also utilize probiotics Patient ordered CT scan for concern for abdominal mass/lump. Patient was previously ordered a CT scan however this was never completed back in 2023 Follow-up in this office in 8 weeks to discuss treatment efficacy, if patient symptoms remain despite up titration of PPI consider EGD testing. Patient is extremely anxious with regard to endoscopy testing and would prefer conservative management before endoscopy Future Tests Future scheduled test information is unavailable Pending Tests Test Name Ordered Date Scheduled Date XR thoracic spine 3V* February 14, 2025 10:03 am Future Visits Future appointment information is unavailable Referrals to Other Providers Reason for Referral Referral Start Date Provider Provider Contact Information Provider Address Call Dr. Donaldson office to schedule a follow up appointment if you do not already have one scheduled Adolfo Kang MD Work Phone: [phone] [phone] Future Procedures Procedure Name Ordered Date Scheduled Date Discharge Order January 31, 2025 11:43am Sep tember 2024 11:43am Future Medications Future medication information is unavailable Patient Instructions Instruction Admit Date Know your [place] Jorge Luis Non Diagnostic Block January 31, 2025 10:00am
--- OUTSIDE RECORDS SUMMARY | 2025-02-14 15:20 | XMS_ITS | Encounter Summary ---
Author Organization [facility] Healthcare Address [address] [place] [address] Care Team Providers Care Residential Door Installer Name Role Phone Gay De La Torre MD Unavailable [phone] Reason for Referral * Consultation (Routine) - Authorized Specialty Diagnoses / Procedures Referred By Nahid rtan Referred To Contact General Surgery Diagnoses Pilonidal cyst Procedures [place] OFFICE/OUTPATIENT [facility] 60 MINUTES Cynthia English MD [address] [facility] 350 [place] [address] Phone: tel: fax: Terence Blum MD 703 [facility] 150 [place] [address] Phone: tel: fax: Referral ID Status Reason Start Date Expiration Date Visits Requested Visits Authorized [id number] Authorized Specialty Services Required 02/14/2025 08/13/2025 1 1 Reason for Visit * Reason Comments Follow-up Suspicious Skin Lesion Encounter Details Date Type Department Care Team (Late st Contact Info) Description 02/14/2025 3:20 PM EDT [facility] [address] [facility] 350 [place] [phone] Cynthia English MD [address] [facility] 350 [place] [address] Pilonidal cyst (Primary Dx); Hidradenitis [...] AM EDT Consult [facility] [address] [facility] 150 [place] [phone] Terence Blum MD 703 [facility] 150 [place] [address] 03/19/2025 10:20 AM EDT Office Visit [facility] [address] [place] [phone] Mary Grace Mejias MD 112 [facility] 130 [place] [address] 07/25/2025 11:00 AM EST Office Visit [facility] [address] [place] [address] Cynthia English MD [address] [place] [address] Scheduled Referrals Name Type Priority [...] Other documented in this encounter Care Teams Residential Door Installer Relationship Specialty Start Date End Date Gay De La Torre MD [address] [place] [address] Referring Physician Family Medicine 07/18/24 documented as of this encounter
--- OUTSIDE RECORDS SUMMARY | 2025-02-21 09:00 | XMS_ITS | Encounter Summary ---
Author Organization [facility] Address [address] [place] [address] Care Team Providers Care Retail Sales Representative Name Role Phone Manuel Klein MD Unavailable [phone] Manuel Klein MD Primary Care Provider +-4 Manuel Klein MD Unavailable [phone] Source Comments In the event this information is protected by the Federal Confidentiality of Alcohol and Drug AbusePatient Records regulations: The Federal rules restrict any use of the information to criminally investigate or prosecute any alcohol or drug abuse patient.[facility] Reason for Visit * Reason Comments Hypogammaglobulinemia Treatment visit Encounter Details Date Type Department Care Team (Latest Contact Info) Description 02/21/2025 9:00 AM EDT Visit (SP) Office Hematology/Oncology [address] [facility] [place] [address] Fara Lopez APRN.INSPECTOR BRAKE LINING [address] [place] [address] Frequent infections (Primary Dx); Hypogammaglobulinemi a [...] is lower risk 4 09/24/2022 Data from: https://www.neighborhoodatlas.medicine.[facility]/. Last address used for calculation [address] 09/24/2022 Comments No Sex and Gender [...] this encounter Progress Notes * Fara Lopez APRN.INSPECTOR BRAKE LINING - 02/21/2025 9:00 AM EDT Images from the original note were not included. NAME: Ariadna Paniagua CLINIC NO.: [id number] DATE OF SERVICE: February 21, 2025 (John) [...] 1 on her buttocks. She saw a delivery truck driver heavy who treated one with a steroid injection. [...] requiring a recent corticosteroid injection by her delivery truck driver heavy. She experiences intermittent fatigue, shortness of breath, [...] lower lip done 2 days ago at [facility] - awaiting results. B12 helps [...] injections. Shefollows with multiple doctors including and commercial agent, custom grinder, delivery truck driver heavy and PCP. She has been told they [...] one time a week. Per PCP^Disp: ^Rfl: kiywblmfywNBOTX-ujfsdh-fgnbdvbou (BMX 1:1:1) 1:1:1 liqd^Take 5 mL by [...] which included preparing to see the patient, sqck-hx-zwbs patient care, completing clinical documentation, obtaining and/or reviewing separately obtained history, performing a medically appropriate examination, counseling and educating the pat ient/family/caregiver, ordering medications, tests, or procedures, communicating with other HCPs (not separately reported), and independently interpreting results (not separately reported) . Fara Lopez APRN, LABORER COOK HOUSE-C, OCN Hematology and Oncology Services Provided at: [place], [place] CC: Manuel Klein MD [address] [facility] [address] documented in this encounter Plan of Treatment Upcoming Encounters Date Type Department Care Team (Latest Contact Info) Description 03/08/2025 2:00 PM EDT Infusion Center Hematology/Oncology [address] [facility] [place] [address] BENLYSTA - 03/21/2025 9:00 AM EDT Office Visit [facility] [address] [place] [address] 4 week follow up IVIG - pt to see MASON for this appt per Fara 03/21/2025 9:20 AM EDT Visit (SP) Office Hematology/Oncology [address] [place] [address] Jose Cho MD [address] [facility] [place] [address] 4 week follow up IVIG - pt to see MASON for this appt per Fara 03/21/2025 9:40 AM EDT Infusion Center Hematology/Oncology [address] [place] [address] Gabbi, Chair 4 [address] [place] [address] 4 week follow up IVIG - pt to see MASON for this appt per Fara 04/05/2025 2:00 PM EST Infusion Center Hematology/Oncology [address] [place] [address] BENLYSTA - 05/03/2025 2:00 PM [facility] Infusion Center Hematology/Oncology [facility] [place] [address] BENLYSTA - documented as of this encounter Visit Diagnoses Diagnosis Frequent infections- Primary Hypogammaglobulinemia (HCC) Hypogammaglobulinaemia, unspecified Bilateral leg weakness Other musculoskeletal symptoms referable to limbs Discoid lupus erythematosus Lupus erythematosus Vitamin B12 deficiency Other B-complex deficiencies Shortness of breath Other iron deficiency anemia Malaise and fatigue Other malaise and fatigue documented in this encounter Care Teams Retail Sales Representative Relationship Specialty Start Date End Date Manuel Klein MD PCP - General Family Medicine 02/27/22 Manuel Klein MD Referring Family Medicine 02/12/22 Maneul Klein MD [address] [place] [address] Referring Family Medicine 07/06/24 documented as of this encounter
--- OUTSIDE RECORDS SUMMARY | 2025-02-21 09:30 | XMS_ITS | Encounter Summary ---
Author Organization [facility] Address [address] [place] [address] Care Team Providers Care Installation Superintendent Name Role Phone Manuel Klein MD Unavailable [phone] Manuel Klein MD Primary Care Provider +-4 Manuel Klein MD Unavailable [phone] Source Comments In the event this information is protected by the Federal Confidentiality of Alcohol and Drug AbusePatient Records regulations: The Federal rules restrict any use of the information to criminally investigate or prosecute any alcohol or drug abuse patient.[facility] Reason for Visit * [place] Prior Authorization (Routine) - Authorized Specialty Diagnoses / Procedures Referred By Contac t Referred To Contact Diagnoses Frequent infections Hypogammaglobulinemia (HCC) Bilateral leg weakness Discoid lupus erythematosus Procedures GAMMAGARD LIQUID INJECTION IMMUNE GLOBULIN INJECTION Jose Cho MD [address] [place] [address] [place] [address] Phone: tel: fax: Hematology/Oncology [address] [place] [address] [place] [address] Phone: tel: fax: Referral ID Status Reason Start Date Expiration Date Visits Requested Visits Authorized [id number] Authorized Patient Cleared - Admin/Chairm an/Director advise to proceed or did not respond 10/30/2024 10/30/2025 19 19 Encounter Details Date Type Department Care Team (Latest Contact Info) Description 02/21/2025 9:30 AM EDT Infusion Center Hematology/Oncology [address] [place] [address] [place] [address] Frequent infections (Primary Dx); Hypogammaglobulinemia (HCC); Bilateral leg weakness; Discoid lupus erythematosus Social History Tobacco Use Types Packs/Day Years [...] is lower risk 4 09/24/2022 Data from: https://www.neighborhoodatlas.medicine.[facility].edu/. Last address used for calculation [address] [place] [address] 09/24/2022 Comments No Sex and Gender Information Value Date Recorded Sex Assigned at Not on file Legal Sex Female 2:51 PM EST Gender Identity Not on file Sexual Orientation Not on file documented as of this encounter Last Filed Vital Signs Vital Sign Reading Time Taken Comments Blood Pressure 110/63 02/21/2025 2:39 PM EDT Pulse 103 02/21/2025 2:39 PM EDT Temperature 36.4 C (97.6 F) 02/21/2025 2:39 PM EDT Respiratory Rate 18 02/21/2025 2:39 PM EDT Oxygen Saturation 97% 02/21/2025 2:39 PM EDT Inhaled Oxygen Concentration - - Weight - - Height - - Body Mass Index - - documented in this encounter Functional Status * [...] documented in this encounter Progress Notes * Elena Alfonso RN - 02/21/2025 11:59 AM EDT Gamunex-C: Lot # [id number] EXP 05/02/27 = 20 G LOT# [id number] EXP 09/04/27 = 10 G LOT# [id number] EXP 06/19/27 = 5 G documented in this encounter Plan of Treatment Upcoming Encounters Date Type Department Care Team (Latest Contact Info) Description 03/08/2025 2:00 PM EDT [employer] [facility] [employer] Hematology/Oncology [address] [facility] [place] [address] BENLYSTA - 03/21/2025 9:00 AM EDT Office Visit [facility] [address] [facility] [place] [address] 4 week follow up IVIG - pt to see MASON for this appt per Fara 03/21/2025 9:20 AM EDT Visit (SP) Office Hematology/Oncology [address] [place] [address] Jose Cho MD [address] [facility] [place] [address] 4 week follow up IVIG - pt to see MASON for this appt per Fara 03/21/2025 9:40 AM EDT Infusion Center Hematology/Oncology [address] [facility] [address] Gabbi, Chair 4 [address] [facility] [address] 4 week follow up IVIG - pt to see MASON for this appt per Fara 04/05/2025 2:00 PM [facility] Infusion Center Hematology/Oncology [address] [facility] [place] [address] BENLYSTA - 05/03/2025 2:00 PM [facility] Infusion Center Hematology/Oncology [address] [facility] [address] BENLYSTA - documented as of this encounter Visit Diagnoses Diagnosis Frequent infections- Primary Hypogammaglobulinemia (HCC) Hypogammaglobulinaemia, unspecified Bilateral leg weakness Other musculoskeletal symptoms referable to limbs Discoid lupus erythematosus Lupus erythematosus documented in this encounter Administered Medications Inactive Administered Medications - up to 3 most recent administrations Medication Order MAR Action Action Date Dose Rate Site acetaminophen 650 mg tab(s) (TYLENOL) 650 mg, ORAL, ONCE, 1 dose, On Wed02/21/25 at 1000, No more than 4000 mg of acetaminophen should be given per day (FROM ALL SOURCES)Indications:Frequen t infections,Hypogammaglobuli nemia (HCC),Bilateral leg weakness,Discoid lupus erythematosus Given 02/21/2025 10:06 AM EDT 650 mg diphenhydrAMINE 25 mg injection (BENADRYL) 25 mg, INTRAVENOUS, ONCE, 1 dose, On Wed02/21/25 at 1000Indications:Frequent infections,Hypogammaglobuli nemia (HCC),Bilateral leg weakness,Discoid lupus erythematosus Given 02/21/2025 10:11 AM EDT 25 mg hydrocortisone sodium succinate (PF) 50 mg injection (Solu-CORTEF) 50 mg, INTRAVENOUS, ONCE, 1 dose, On Wed02/21/25 at 1000Indications:Frequent infections,Hypogammaglobuli nemia (HCC),Bilateral leg weakness,Discoid lupus erythematosus Given 02/21/2025 10:06 AM EDT 50 mg immune globulin (human) (IgG) 35 g in empty bag Total Volume 350 mL (GAMUNEX-C) 35 g (rounded from 34.72 g = 0.4 g/kg/dose 86.8 kg Treatment plan adjusted weight), INTRAVENOUS, ONCE, 1 dose, On Wed02/21/25 at 1030, EXP: Refrigerate - Prepared as a 10% solution - Brand: Lot: Total Volume., Infusion regimen: Standard, Starting rate (mL/kg/hr): 0.5 mL/kg/hr, Rate after 30 min (mL/kg/hr): 1 mL/kg/hr, Titration rate/max: Increase by 1 mL/kg/hr every 30 minutes thereafter to a max of 5 mL/kg/hr unless signs or symptoms of reactionIndications:Frequen t infections,Hypogammaglobuli nemia (HCC),Bilateral leg weakness,Discoid lupus erythematosus Rate/Dose Change 02/21/2025 11:06 AM EDT 86 mL/hr New Bag/Syringe/Bottle 02/21/2025 10:36 AM EDT 35 g 40 mL/hr documented in this encounter Care Teams Installation Superintendent Relationship Specialty Start Date End Date Manuel Klein MD PCP - General Family Medicine 02/27/22 Manuel Klein MD Referring Family Medicine 02/12/22 Manuel Klein MD [address] [place] [address] Referring Family Medicine 07/06/24 documented as of this encounter
[2025-02-26 17:54] VITALS: BP 152/93; PULSE 85; TEMP 37.2; O2SAT 96; BMI 44.6
--- OUTSIDE RECORDS SUMMARY | 2025-02-26 17:55 | XMS_ITS | Encounter Summary ---
Author Organization [facility] Address [address] [place] [id number] Care Team Providers Care Leaf Sorter Name Role Phone Manuel Klein MD Unavailable [phone] Manuel Klein MD Primary Care Provider +-4 Manuel Klein MD Unavailable [phone] Source Comments In the event this information is protected by the Federal Confidentiality of Alcohol and Drug AbusePatient Records regulations: The Federal rules restrict any use of the information to criminally investigate or prosecute any alcohol or drug abuse patient.[facility] Encounter Details Date Type Department Care Team (Late st Contact Info) Description 05/05/2022 Patient Msg Home Respiratory Therapy [address] [place] [address] [place] [id number] Jami Rivera, PSS PAP Referral Delay Social [...] N ot on file 08/09/2020 Data from: [email or web address] Last address used for calculation Not [...] [facility] Center Hematology/Oncology [address] [place] [address] BENLYSTA - 03/21/2025 9:00 AM EDT Office Visit [facility] [address] [place] [address] 4 week follow up IVIG - pt to see MASON for this appt per [facility] 03/21/2025 9:20 AM EDT Visit (SP) Office Hematology/Oncology [address] [place] [address] Jose Cho MD [address] [place] [address] 4 week follow up IVIG - pt to see MASON for this appt per [facility] 03/21/2025 9:40 AM EDT Infusion Center Hematology/Oncology [address] [place] [address] Gabbi, Chair [address] [place] [address] 4 week follow up IVIG - pt to see MASON for this appt per [facility] 04/05/2025 2:00 PM EST Infusion Center Hematology/Oncology [address] [place] [address] BENLYSTA - 05/03/2025 2:00 PM [facility] Infusion Center Hematology/Oncology [address] [place] [address] BENLYSTA - documented as of this encounter Visit Diagnoses Not on filedocumented in this encounter Care Teams Leaf Sorter Relationship Specialty Start Date End Date Manuel Klein MD PCP - General Family Medicine 02/27/22 Manuel Klein MD Referring Family Medicine 02/12/22 Manuel Klein MD [address] [facility] [place] [address] Referring Family Medicine 07/06/24 documented as of this encounter
--- OUTSIDE RECORDS SUMMARY | 2025-02-26 17:55 | XMS_ITS | Encounter Summary ---
Author Organization [facility] Address [address] [place] [address] Care Team Providers Care Brazer Controlled Atmospheric Furnace Name Role Phone Gay De La Torre(Historical) PATIENT SUPPORT REPRESENTATIVE.OFFICE ADMIN Primary Care Provider Unavailable Manuel Klein MD Unavailable [phone] Manuel Klein MD Primary Care Provider +- Manuel Klein MD Unavailable [phone] Source Comments In the event this information is protected by the Federal Confidentiality of Alcohol and Drug AbusePatient Records regulations: The Federal rules restrict any use of the information to criminally investigate or prosecute any alcohol or drug abuse patient.[facility] Encounter Details Date Type Department Care Team (Late st Contact Info) Description 08/13/2021 Patient Msg Rheumatology [address] [place] [address] Provider, Ccf Please Review Changes [...] ot on file 08/09/2020 Data from: [email or web address] Last address used for calculation [...] [facility] H[facility]Oncology [address] [place] [address] BENLYSTA - 03/21/2025 9:00 AM EDT Office Visit [facility] [address] [place] [address] 4 week follow up IVIG - pt to see MASON for this appt per [facility] 03/21/2025 9:20 AM EDT Visit (SP) Office Hematology/Oncology [address] [address] Jose Cho MD [address] [address] 4 week follow up IVIG - pt to see MASON for this appt per [facility] 03/21/2025 9:40 AM EDT Infusion Center Hematology/Oncology [address] [address] Gabbi, Chair [address] [address] 4 week follow up IVIG - pt to see MASON for this appt per [facility] 04/05/2025 2:00 PM EST Infusion Center Hematology/Oncology [address] [place] [address] BENLYSTA - 05/03/2025 2:00 PM [facility] Infusion Center Hematology/Oncology [address] [address] BENLYSTA - documented as of this encounter Visit Diagnoses Not on filedocumented in this encounter Care Teams Brazer Controlled Atmospheric Furnace Relationship Specialty Start Date End Date Gay De La Torre(Historical), PATIENT SUPPORT REPRESENTATIVE.OFFICE ADMIN PCP - General Family Medicine 10/24/21 02/26/22 Manuel Klein MD PCP - General Family Medicine 02/27/22 Manuel Klein MD Referring Family Medicine 02/12/22 Manuel Klein MD [facility] [place] [address] Referring Family Medicine 07/06/24 documented as of this encounter
--- OUTSIDE RECORDS SUMMARY | 2025-02-26 17:55 | XMS_ITS | Encounter Summary ---
Author Organization [facility] Address [address] [place] [address] Care Team Providers Care Facility Maintenance Worker Name Role Phone Britt, Gay(Historical) MENDER HAND.FURS SALESPERSON Primary Care Provider Unavailable Manuel Klein MD Unavailable [phone] Manuel Klein MD Primary Care Provider +-4 Manuel Klein MD Unavailable Source Comments In the event this information is protected by the Federal Confidentiality of Alcohol and Drug AbusePatient Records regulations: The Federal rules restrict any use of the information to criminally investigate or prosecute any alcohol or drug abuse patient.[facility] Encounter Details Date Type Department Care Team (Late st Contact Info) Description 02/24/2022 Get Medical Advice Infectious Disease [address] [place] [address] Tiffany Head DO [address] [place] [address] Test results Social History Tobacco [...] N ot on file 08/09/2020 Data from: https://www.neighborhoodatlas.medicine.[facility]/. Last address used for calculation Not [...] EDT [facility] Center Hematology/Oncology [address] [place] [address] [place] [address] BENLYSTA - 03/21/2025 9:00 AM EDT Office Visit [facility] Laboratory [address] [place] [address] 4 week follow up IVIG - pt to see MASON for this appt per [facility] 03/21/2025 9:20 AM EDT Visit (SP) Office Hematology/Oncology [address] [place] [address] Jose Cho MD [address] [place] [address] 4 week follow up IVIG - pt to see MASON for this appt per [facility] 03/21/2025 9:40 AM EDT Infusion Center Hematology/Oncology [address] [place] [address] Gabbi, Chair [address] [place] [address] 4 week follow up IVIG - pt to see MASON for this appt per [facility] 04/05/2025 2:00 PM EST Infusion Center Hematology/Oncology [address] [place] [address] BENLYSTA - 05/03/2025 2:00 PM [facility] Infusion Center Hematology/Oncology [address] [facility] [place] [address] BENLYSTA - documented as of this encounter Visit Diagnoses Not on filedocumented in this encounter Care Teams Facility Maintenance Worker Relationship Specialty Start Date End Date Gay De La Torre(Historical), MENDER HAND.FURS SALESPERSON PCP - General Family Medicine 10/24/21 02/26/22 Manuel Klein MD PCP - General Family Medicine 02/27/22 Manuel Klein MD Referring Family Medicine 02/12/22 Manuel Klein MD [address] [place] [place] [address] Referring Family Medicine 07/06/24 documented as of this encounter
--- OUTSIDE RECORDS SUMMARY | 2025-02-26 17:55 | XMS_ITS | Encounter Summary ---
Author Organization [facility] Address [address] [place] [address] Care Team Providers Care Laborer Concrete Plant Name Role Phone Gay De La Torre(Historical) MANUFACTURING MILLWRIGHT.GRID TRIMMER Primary Care Provider Unavailable Manuel Klein MD Unavailable [phone] Manuel Klein MD Primary Care Provider +-4 Manuel Klein MD Unavailable [phone] Source Comments In the event this information is protected by the Federal Confidentiality of Alcohol and Drug AbusePatient Records regulations: The Federal rules restrict any use of the information to criminally investigate or prosecute any alcohol or drug abuse patient.[facility] Encounter Details Date Type Department Care Team (Late st Contact Info) Description 05/05/2021 Get Medical Advice Rheumatology [address] [place], [place] [id number] Sandra Park MD [address] [place], [place] [phone] Steroids Social History Tobacco Use Types Packs/Day [...] N ot on file 08/09/2020 Data from: https://www.neighborhoodatlas.[facility]/. Last address used for [...] 2:00 PM EDT Infusion Center Hematology/Oncology [address] [facility] [place] [address] BENLYSTA - 03/21/2025 9:00 AM EDT Office Visit [facility] Laboratory [address] [place] [address] 4 week follow up IVIG - pt to see MASON for this appt per [facility] 03/21/2025 9:20 AM EDT Visit (SP) Office Hematology/Oncology [address] [facility] [place] [address] Jose Cho MD [address] [facility] [place] [address] 4 week follow up IVIG - pt to see MASON for this appt per [facility] 03/21/2025 9:40 AM EDT Infusion Center Hematology/Oncology [address] [facility] [place] [address] Gabbi, Chair 4 [address] [facility] [place] [address] 4 week follow up IVIG - pt to see MASON for this appt per [facility] 04/05/2025 2:00 PM EST Infusion Center Hematology/Oncology [address] [facility] [place] [address] BENLYSTA - 05/03/2025 2:00 PM EST Infusion Center Hematology/Oncology [address] [facility] [place] [address] BENLYSTA - documented as of this encounter Visit Diagnoses Diagnosis Other systemic lupus erythematosus with other organ involvement (HCC)- Primary documented in this encounter Care Teams Laborer Concrete Plant Relationship Specialty Start Date End Date Gay De La Torre(Historical), MANUFACTURING MILLWRIGHT.GRID TRIMMER PCP - General Family Medicine 10/24/21 02/26/22 Manuel Klein MD PCP - General Family Medicine 02/27/22 Manuel Klein MD Referring Family Medicine 02/12/22 Manuel Klein MD [address] [place] [address] Referring Family Medicine 07/06/24 documented as of this encounter
--- OUTSIDE RECORDS SUMMARY | 2025-02-26 17:55 | XMS_ITS | Encounter Summary ---
Author Organization [facility] Address [address] [place] [address] Care Team Providers Care Sewer And Drain Technician Name Role Phone Manuel Klein MD Unavailable [phone] Manuel Klein MD Primary Care Provider +-4 Manuel Klein MD Unavailable [phone] Source Comments In the event this information is protected by the Federal Confidentiality of Alcohol and Drug AbusePatient Records regulations: The Federal rules restrict any use of the information to criminally investigate or prosecute any alcohol or drug abuse patient.[facility] Encounter Details Date Type Department Care Team (Latest Contact Info) Description 03/29/2024 Patient Msg [facility] [address] [place] [address] Akiko Cooper MD [address] [place] [address] breath test scheduling Social History Tobacco Use [...] risk 4 09/24/2022 Data from: https://www.neighborhoodatlas.medicine.[facility]/. Last address used for calculation [address] 09/24/2022 Comments No Sex and Gender [...] Contact Info) Description 03/08/2025 2:00 PM EDT [facility] Center Hematology/Oncology [address] [place] [address] BENLYSTA - 03/21/2025 9:00 AM EDT Office Visit [facility] Laboratory [address] [place] [address] 4 week follow up IVIG - pt to see MASON for this appt per [facility] 03/21/2025 9:20 AM EDT Visit (SP) Office Hematology/Oncology [address] [place] [address] Jose Cho MD [address] [place] [address] 4 week follow up IVIG - pt to see MASON for this appt per [facility] 03/21/2025 9:40 AM EDT Infusion Center Hematology/Oncology [address] [place] [address] Gabbi, Chair [address] [place] [address] 4 week follow up IVIG - pt to see MASON for this appt per [facility] 04/05/2025 2:00 PM EST Infusion Center Hematology/Oncology [address] [place] [address] BENLYSTA - 05/03/2025 2:00 PM [facility] Infusion Center Hematology/Oncology [address] [facility] [place] [address] BENLYSTA - documented as of this encounter Visit Diagnoses Not on filedocumented in this encounter Care Teams Sewer And Drain Technician Relationship Specialty Start Date End Date Manuel Klein MD PCP - General Family Medicine 02/27/22 Manuel Klein MD Referring Family Medicine 02/12/22 Manuel Klein MD [address] [place] [address] Referring Family Medicine 07/06/24 documented as of this encounter
--- OUTSIDE RECORDS SUMMARY | 2025-02-26 17:55 | XMS_ITS | Encounter Summary ---
Author Organization [facility] Address [address] [place] [address] Care Team Providers Care Enterostomal Therapy Nurse Name Role Phone Manuel Klein MD Unavailable [phone] Manuel Klein MD Primary Care Provider +-4 Manuel Klein MD Unavailable [phone] Source Comments In the event this information is protected by the Federal Confidentiality of Alcohol and Drug AbusePatient Records regulations: The Federal rules restrict any use of the information to criminally investigate or prosecute any alcohol or drug abuse patient.[facility] Encounter Details Date Type Department Care Team (Late st Contact Info) Description 02/27/2022 Get Medical Advice Infectious Disease [address] [place] [address] Tiffany Head DO [address] [place] [address] Blood work Social History Tobacco [...] on file 08/09/2020 Data from: https://www.neighborhoodatlas.medicine.[facility]/. Last address used for [...] 2:00 PM EDT [facility] Hematology/Oncology [address] [facility] [place] [address] BENLYSTA - 03/21/2025 9:00 AM EDT Office Visit [facility] Laboratory [address] [place] [address] [place] [address] 4 week follow up IVIG - pt to see MASON for this appt per [facility] 03/21/2025 9:20 AM EDT Visit (SP) Office Hematology/Oncology [address] [facility] [place] [address] Jose Cho MD [address] [facility] [place] [address] 4 week follow up IVIG - pt to see MASON for this appt per [facility] 03/21/2025 9:40 AM EDT Infusion Center Hematology/Oncology [address] [facility] [place] [address] Gabbi, Chair 4 [address] [facility] [place] [address] 4 week follow up IVIG - pt to see MASON for this appt per [facility] 04/05/2025 2:00 PM EST Infusion Center Hematology/Oncology [address] [facility] [place] [address] BENLYSTA - 05/03/2025 2:00 PM EST Infusion Center Hematology/Oncology [address] [facility] [place] [address] BENLYSTA - documented as of this encounter Visit Diagnoses Not on filedocumented in this encounter Care Teams Enterostomal Therapy Nurse Relationship Specialty Start Date End Date Manuel Klein MD PCP - General Family Medicine 02/27/22 Manuel Klein MD Referring Family Medicine 02/12/22 Manuel Klein MD [address] [place] [address] Referring Family Medicine 07/06/24 documented as of this encounter
--- OUTSIDE RECORDS SUMMARY | 2025-02-26 17:55 | XMS_ITS | Encounter Summary ---
Author Organization [facility] Address [address] [place] [address] Care Team Providers Care Dragline Operator Name Role Phone Britt Gay(Historical) COMPLEX CASE MANAGER.OTOLARYNGOLOGY TEACHER Primary Care Provider Unavailable Manuel Klein MD Unavailable [phone] Manuel Klein MD Primary Care Provider +-4 Manuel Klein MD Unavailable [phone] Source Comments In the event this information is protected by the Federal Confidentiality of Alcohol and Drug AbusePatient Records regulations: The Federal rules restrict any use of the information to criminally investigate or prosecute any alcohol or drug abuse patient.[facility] Encounter Details Date Type Department Care Team (Late st Contact Info) Description 05/04/2021 Get Medical Advice Rheumatology [address] [facility] [address] [place], [place] [phone] Sandra Park MD [address] [place], [place] [phone] Lupus diagnosis from dermatology Social History Tobacco [...] on file 08/09/2020 Data from: https://www.neighborhoodatlas.medicine.[facility]/. Last address used for calculation Not on [...] 2:00 PM EDT Infusion Center Hematology/Oncology [address] [place] [address] BENLYSTA - 03/21/2025 9:00 AM EDT Office Visit [facility] Laboratory [address] [place] [address] 4 week follow up IVIG - pt to see MASON for this appt per [facility] 03/21/2025 9:20 AM EDT Visit (SP) Office Hematology/Oncology [address] [place] [address] Jose Cho MD [address] [place] [address] 4 week follow up IVIG - pt to see MASON for this appt per [facility] 03/21/2025 9:40 AM EDT Infusion Center Hematology/Oncology [address] [place] [address] Gabbi, Chair [address] [place] [address] 4 week follow up IVIG - pt to see MASON for this appt per [facility] 04/05/2025 2:00 PM EST Infusion Center Hematology/Oncology [address] [place] [address] BENLYSTA - 05/03/2025 2:00 PM EST Infusion Center Hematology/Oncology [address] [place] [address] BENLYSTA - documented as of this encounter Visit Diagnoses Diagnosis CHRISTIAN positive- Primary Other and unspecified nonspecific immunological findings Other systemic lupus erythematosus with other organ involvement (HCC) documented in this encounter Care Teams Dragline Operator Relationship Specialty Start Date End Date Gay De La Torre(Historical), COMPLEX CASE MANAGER.OTOLARYNGOLOGY TEACHER PCP - General Family Medicine 10/24/21 02/26/22 Manuel Klein MD PCP - General Family Medicine 02/27/22 Manuel Klein MD Referring Family Medicine 02/12/22 Manuel Klein MD [address] [place] [address] Referring Family Medicine 07/06/24 documented as of this encounter
--- OUTSIDE RECORDS SUMMARY | 2025-02-26 17:55 | XMS_ITS | Clinical Summary ---
Author Organization [facility] Address [address] [place] [address] Phone Care Team Providers Care Radio Dispatcher Name Role Phone Mitali, Michelle London SHAREPOINT ADMIN-FLOSSER Unavailable [phone] Kenneth Patel MD Unavailable [phone] Gay De La Torre SHAREPOINT ADMIN-FLOSSER Primary Care Provider Allergies Active Allergy Reactions [...] 10/24/19 Active ergocalciferol (Vitamin D-2) 1.25 MG (22750 UT) capsule Take 1 capsule (50,000 Units) [...] Description 07/26/2025 11:00 AM EST Office Visit [facility] [address] [facility] [address] [place] [address] Lois Arguelles MD [address] [facility] [address] [place] [address] Health Maintenance Due Date Last [...] Name Priority Date/Time Associated Diagnosis Comments CONVERTED LOG HAUL CHAIN FEEDER CYTOLOGY Routine 05/04/2008 12:00 AM EST from Last 3 Months or Most Recently Relevant to Health Maintenance Results * CONVERTED LOG HAUL CHAIN FEEDER CYTOLOGY (05/04/2008 12:00 AM EST) Pathology Report [...] - Signed by: JESSICA ORTIZ [facility] 05/09/08 Electronically Signed Out By [facility], Cytology/ By the signature on this report, [...] Source of Specimen A: Unknown Part Type [facility] Department of Pathology [address] [place] CONVERTED FINAL DIAGNOSIS Satisfactory for [...] - Signed by: JESSICA ORTIZ [facility] 05/09/08 [facility] COPATH CONVERTED CLINICAL DIAGNOSIS-HIST ORY - HISTORY & COMMENTS LMP: 02/14/08 Reflex HPV ordered if result is [facility] ZeomatrixATH CONVERTED SLIDE-BLOCK DESCRIPTION - TISSUES - 1. CERVICAL THIN PREP - [facility] CONVERTED REPORT COMMENTS [place] Case # [id number] DOS: 05/04/08 - ORD PHYSICIAN: Jose Blackburn MD - ORD PROCEDURES - CYTO PAP TLP MAN / - COPIES TO: Jose Blackburn MD - Status History - ENT 05/07/08 1128 [facility] [place] DIAG 05/09/08 0750 JESSICA ORTIZ 05/09/08 1524 JESSICA ORTIZ - [place] Conversion Report - [facility] CONVERTED FINAL REPORT PDF LINK TO COPY AND PASTE \copathshare\copa th\PDF [id number].pdf [facility] Unrecognized Part Type 05/04/2008 05/07/2008 11:28 AM EST us Copath Conversion LAB CYTOLOGY ORDERABLES Final Result [facility] COPATH [address] [place] [address] from Last 3 Months or Most Recently Relevant to Health Maintenance [facility] [place] Care Teams Radio Dispatcher Relationship Specialty Start Date End Date Gay De La Torre APRN-FLOSSER [address] [place] [id number] PCP - General 07/13/23 Michelle Jasmine APRN-FLOSSER Nurse Practitioner Cardiology 06/08/23 Kenneth Patel MD Consulting Physician Cardiology 06/23/23
--- OUTSIDE RECORDS SUMMARY | 2025-02-26 17:55 | XMS_ITS | Encounter Summary ---
Author Organization [facility] Address [address] [place] [address] Care Team Providers Care Clinical Rehabilitation Aide Name Role Phone Gay De La Torre MD Unavailable [phone] Encounter Details Date Type Department Care [...] EDT Consult [facility] [address] [address] Terence Blum MD 703 [facility] 150 [place] [address] 03/19/2025 10:20 AM EDT Office Visit [facility] [address] [facility] [address] [place] [address] Mary Grace Mejias MD 112 [facility] 130 [place] [address] 07/25/2025 11:00 AM EST Office Visit [facility] [address] [place] [address] Cynthia English MD [address] [place] [address] documented as of this encounter Visit Diagnoses Not on filedocumented in this encounter Care Teams Clinical Rehabilitation Aide Relationship Specialty Start Date End Date Gay De La Torre MD [address] [place] [address] Referring Physician Family Medicine 07/18/24 documented as of this encounter
--- OUTSIDE RECORDS SUMMARY | 2025-02-26 17:56 | XMS_ITS | Clinical Summary ---
Author Organization [facility] Address [address] [place] [address] Care Team Providers Care Vamp Seamer Name Role Phone Gay De La Torre CNP Primary Care Provider [phone] Allergies Active Allergy Reactions Criticality Noted Date [...] Tachycardia 06/01/2023 Bilateral wrist pain 02/04/2023 terminal press operator 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 02/04 [...] topic Insurance [employer] [place] [employer] Care Teams Vamp Seamer Relationship Specialty Start Date End Date Gay De La Torre CNP [facility], [facility] [address] [place] [id number] PCP - General Family Medicine 03/01/24
--- OUTSIDE RECORDS SUMMARY | 2025-02-26 17:56 | XMS_ITS | Encounter Summary ---
Author Organization [facility] Address [address] [place] [address] Care Team Providers Care Supervising Film Or Videotape Editor Name Role Phone Gay De La Torre MD Unavailable Encounter Details Date Type Department Care Team (Late Contact Info) Description 02/14/2025 Bamboo flowsheet [facility] [address] [facility] [address] [place] [phone] Cynthia English MD [address] [facility] [address] [place] [address] Social History Tobacco Use Types Packs/Day Years [...] Associates [address] [facility] [address] [place] [phone] Terence Blum MD [address] [facility] [address] [place] [address] 03/19/2025 10:20 AM EDT Office Visit [facility] [address] [place] [address] Mary Grace Mejias MD 112 [facility] 130 [place] [address] 07/25/2025 11:00 AM EST Office Visit [facility] [address] [place] [address] Cynthia English MD [address] [place] [address] documented as of this encounter Visit Diagnoses Not on filedocumented in this encounter Care Teams Supervising Film Or Videotape Editor Relationship Specialty Start Date End Date Gay De La Torre MD [address] [place] [address] Referring Physician Family Medicine 07/18/24 documented as of this encounter
--- OUTSIDE RECORDS SUMMARY | 2025-02-26 17:56 | XMS_ITS | Encounter Summary ---
Author Organization [facility] Address [address] [facility] [place] [address] Care Team Providers Care Talent Acquisition Sourcer Name Role Phone Gay De La Torre MD Unavailable [phone] Encounter Details Date Type Department Care [...] AM EDT Consult [facility] [address] [address] Terence Blum MD 7[address] [facility] 150 [place] [address] 03/19/2025 10:20 AM EDT Office Visit [facility] [address] [facility] 900 [place] [address] Mary Grace Mejias MD 112 [facility] 130 [place] [address] 07/25/2025 11:00 AM EST Office Visit [facility] [address] [place] [address] Cynthia English MD [address] [place] [address] documented as of this encounter Visit Diagnoses Not on filedocumented in this encounter Care Teams Talent Acquisition Sourcer Relationship Specialty Start Date End Date Gay De La Torre MD [address] [place] [address] Referring Physician Family Medicine 07/18/24 documented as of this encounter
--- OUTSIDE RECORDS SUMMARY | 2025-02-26 17:56 | XMS_ITS | Encounter Summary ---
Author Organization [facility] Address [address] [place] [address] Care Team Providers Care Steel Tester Name Role Phone Manuel Klein MD Unavailable [phone] Manuel Klein MD Primary Care Provider +-4 Manuel Klein MD Unavailable [phone] Source Comments In the event this information is protected by the Federal Confidentiality of Alcohol and Drug AbusePatient Records regulations: The Federal rules restrict any use of the information to criminally investigate or prosecute any alcohol or drug abuse patient.[facility] Encounter Details Date Type Department Care Team (Late st Contact Info) Description 02/23/2024 Patient Msg Rheumatology [address] [place], [place] [phone] Sandra Park MD [address] [place] [address] Appointment Request Social History Tobacco [...] risk 4 09/24/2022 Data from: https://www.neighborhoodatlas.medicine.[facility]/. Last address used for calculation [address] 09/24/2022 Comments No Sex and Gender [...] EDT [facility] Center Hematology/Oncology [address] [facility] [place] [address] BENLYSTA - 03/21/2025 9:00 AM EDT Office Visit [facility] Laboratory [address] [place] [address] [place] [address] 4 week follow up IVIG - pt to see MASON for this appt per [facility] 03/21/2025 9:20 AM EDT Visit (SP) Office Hematology/Oncology [address] [facility] [place] [address] Jose Cho MD [address] [facility] [place] [address] 4 week follow up IVIG - pt to see MASON for this appt per [facility] 03/21/2025 9:40 AM EDT Infusion Center Hematology/Oncology [address] [facility] [place] [address] Gabbi, Chair 4 [address] [facility] [place] [address] 4 week follow up IVIG - pt to see MASON for this appt per [facility] 04/05/2025 2:00 PM EST Infusion Center Hematology/Oncology [address] [facility] [place] [address] BENLYSTA - 05/03/2025 2:00 PM [email or web address] Infusion Center Hematology/Oncology [address] [facility] [place] [address] BENLYSTA - documented as of this encounter Visit Diagnoses Not on filedocumented in this encounter Care Teams Steel Tester Relationship Specialty Start Date End Date Manuel Klein MD PCP - General Family Medicine 02/27/22 Manuel Klein MD Referring Family Medicine 02/12/22 Manuel Klein MD [address] [facility] [place] [address] Referring Family Medicine 07/06/24 documented as of this encounter
--- OUTSIDE RECORDS SUMMARY | 2025-02-26 17:56 | XMS_ITS | Encounter Summary ---
Author Organization [facility] Address [address] [facility] [place] [address] Care Team Providers Care Diesel Engine Operator Name Role Phone Gay De La Torre MD Unavailable [phone] Reason for Visit * Reason Comments Med Refill Encounter Details Date Type Department Care Team (Late Contact Info) Description 12/07/2024 Refill [facility] [address] [facility] 120 [place] [phone] Андрей Hearn DO [address] [facility] [address] [place] [address] Eustachian tube dysfunction, bilateral; Non-recurrent acute serous [...] [facility] 703 [facility] 150 [place] [phone] Terence Blum MD 703 [facility] 150 [place] [address] 03/19/2025 10:20 AM EDT Office Visit [facility] [address] [place] [address] Mary Grace Mejias MD 112 [facility] 130 [place] [address] 07/25/2025 11:00 AM EST Office Visit [facility] [address] [place] [address] Cynthia English MD [address] [place] [address] documented as of this encounter Visit Diagnoses Diagnosis Eustachian tube dysfunction, bilateral Non-recurrent acute serous otitis media of both ears documented in this encounter Care Teams Diesel Engine Operator Relationship Specialty Start Date End Date Gay De La Torre MD [address] [place] [address] Referring Physician Family Medicine 07/18/24 documented as of this encounter
--- OUTSIDE RECORDS SUMMARY | 2025-02-26 17:56 | XMS_ITS | Encounter Summary ---
Author Organization [facility] Address [address] [place] [address] Care Team Providers Care Neuropsychologist Name Role Phone Manuel Klein MD Unavailable [phone] Manuel Klein MD Primary Care Provider +-4 Manuel Klein MD Unavailable [phone] Source Comments In the event this information is protected by the Federal Confidentiality of Alcohol and Drug AbusePatient Records regulations: The Federal rules restrict any use of the information to criminally investigate or prosecute any alcohol or drug abuse patient.[facility] Encounter Details Date Type Department Care Team (Late st Contact Info) Description 03/18/2022 Get Medical Advice Allergy [address] [place] [phone] Misty Nelson MD [address] [place] [address] Test results Social History Tobacco Use [...] N ot on file 08/09/2020 Data from: https://www.neighborhoodatlas.medicine.[facility]/. Last address used for calculation Not [...] 12/25/2014 11:14 AM EDT Chichi De Jeuss documented in this encounter Miscellaneous Notes * Telephone Encounter - Ros Ashton RN - 03/18/2022 2:17 PM EDT Please see patient regarding lab results. documented in this encounter Plan of Treatment Upcoming Encounters Date Type Department Care Team (Latest Contact Info) Description 03/08/2025 2:00 PM EDT Infusion Center Hematology/Oncology [address] [facility] [place] [address] BENLYSTA - 03/21/2025 9:00 AM EDT Office Visit [facility] Laboratory [address] [place] [address] 4 week follow up IVIG - pt to see MASON for this appt per [facility] 03/21/2025 9:20 AM EDT Visit (SP) Office Hematology/Oncology [address] [facility] [place] [address] Jose Cho MD [address] [facility] [place] [address] 4 week follow up IVIG - pt to see MASON for this appt per [facility] 03/21/2025 9:40 AM EDT Infusion Center Hematology/Oncology [address] [facility] [place] [address] Gabbi, Chair [address] [address] 4 week follow up IVIG - pt to see MASON for this appt per [facility] 04/05/2025 2:00 PM EST Infusion Center Hematology/Oncology [address] [place] [address] BENLYSTA - 05/03/2025 2:00 PM [facility] Infusion Center Hematology/Oncology [address] [facility] [place] [address] BENLYSTA - documented as of this encounter Visit Diagnoses Not on filedocumented in this encounter Care Teams Neuropsychologist Relationship Specialty Start Date End Date Manuel Klein MD PCP - General Family Medicine 02/27/22 Manuel Klein MD Referring Family Medicine 02/12/22 Manuel Klein MD [address] [place] [address] Referring Family Medicine 07/06/24 documented as of this encounter
--- OUTSIDE RECORDS SUMMARY | 2025-02-26 17:56 | XMS_ITS | Encounter Summary ---
Author Organization [facility] Address [address] [place] [address] Care Team Providers Care Computer Systems Integrator Name Role Phone Manuel Klein MD Unavailable [phone] Manuel Klein MD Primary Care Provider +-4 Manuel Klein MD Unavailable [phone] Source Comments In the event this information is protected by the Federal Confidentiality of Alcohol and Drug AbusePatient Records regulations: The Federal rules restrict any use of the information to criminally investigate or prosecute any alcohol or drug abuse patient.[facility] Encounter Details Date Type Department Care Team (Late st Contact Info) Description 02/18/2024 Get Medical Advice Rheumatology [address] [place], [place] [phone] Sandra Park MD [address] [place] [address] Referral Social History Tobacco Use [...] is lower risk 4 09/24/2022 Data from: https://www.neighborhoodatlas.medicine.[facility]/. Last address used for calculation [address] 09/24/2022 Comments No Sex and Gender [...] 2:00 PM EDT Infusion Center Hematology/Oncology [address] [place] [address] BENLYSTA - 03/21/2025 9:00 AM EDT Office Visit [facility] Laboratory [address] [facility] [address] 4 week follow up IVIG - pt to see MASON for this appt per [facility] 03/21/2025 9:20 AM EDT Visit (SP) Office Hematology/Oncology [address] [facility] [address] Jose Cho MD [address] [facility] [address] 4 week follow up IVIG - pt to see MASON for this appt per [facility] 03/21/2025 9:40 AM EDT Infusion Center Hematology/Oncology [address] [place] [address] Gabbi, Chair 4 [address] [facility] [address] 4 week follow up IVIG - pt to see MASON for this appt per [facility] 04/05/2025 2:00 PM EST Infusion Center Hematology/Oncology [address] [place] [address] BENLYSTA - 05/03/2025 2:00 PM EST Infusion Center Hematology/Oncology [address] [place] [address] BENLYSTA - documented as of this encounter Visit Diagnoses Diagnosis 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
--- OUTSIDE RECORDS SUMMARY | 2025-02-26 17:56 | XMS_ITS | Encounter Summary ---
Author Organization [facility] Address [address] [place] [address] Care Team Providers Care Industrial Maintenance Millwright Name Role Phone Manuel Klein MD Unavailable [phone] Manuel Klein MD Primary Care Provider +-4 Manuel Klein MD Unavailable [phone] Source Comments In the event this information is protected by the Federal Confidentiality of Alcohol and Drug AbusePatient Records regulations: The Federal rules restrict any use of the information to criminally investigate or prosecute any alcohol or drug abuse patient.[facility] Encounter Details Date Type Department Care Team (Late st Contact Info) Description 02/23/2024 Patient Msg Rheumatology [address] [place], [place] [phone] Sandra Park MD [address] [place] [address] Appointment Request Social History Tobacco [...] is lower risk 4 09/24/2022 Data from: https://www.neighborhoodatlas.medicine.[place]/. Last address used for calculation [address] 09/24/2022 Comments No Sex and Gender [...] [facility] Hemat[facility]Oncology [address] [facility] [address] BENLYSTA - 03/21/2025 9:00 AM EDT Office Visit [facility] Laboratory [address] [place] [address] [place] [address] 4 week follow up IVIG - pt to see MASON for this appt per [facility] 03/21/2025 9:20 AM EDT Visit (SP) Office Hematology/Oncology [address] [facility] [address] Jose Cho MD [address] [facility] [place] [address] 4 week follow up IVIG - pt to see MASON for this appt per [facility] 03/21/2025 9:40 AM EDT Infusion Center Hematology/Oncology [address] [facility] [place] [address] Gabbi, Chair 4 [address] [facility] [place] [address] 4 week follow up IVIG - pt to see MASON for this appt per [facility] 04/05/2025 2:00 PM EST Infusion Center Hematology/Oncology [address] [facility] [place] [address] BENLYSTA - 05/03/2025 2:00 PM [facility] Infusion Center Hematology/Oncology [address] [facility] [place] [address] BENLYSTA - documented as of this encounter Visit Diagnoses Not on filedocumented in this encounter Care Teams Industrial Maintenance Millwright Relationship Specialty Start Date End Date Manuel Klein MD PCP - General Family Medicine 02/27/22 Manuel Klein MD Referring Family Medicine 02/12/22 Manuel Klein MD [address] [place] [facility] [place] [address] Referring Family Medicine 07/06/24 documented as of this encounter
--- OUTSIDE RECORDS SUMMARY | 2025-02-26 17:56 | XMS_ITS | Encounter Summary ---
Author Organization [facility] Address [address] [place] [address] Care Team Providers Care Cooker Casing Name Role Phone House, Charles Culver MD Primary Care Provider [phone] Gay De La Torre MD Unavailable [phone] Encounter Details Date Type Department Care Team (Late Contact Info) Description 09/29/2023 Clinisync Result Encounter [facility] External Department Unsolicited Zita Rogers, RADAR TESTER 5319 [facility] [address] [address] Social History Tobacco Use Types Packs/Day Years [...] AM EDT Consult [facility] 703 [facility] 150 [place] [phone] Terence Blum MD 703 [facility] 150 [place] [address] 03/19/2025 10:20 AM EDT Office Visit [facility] [address] [facility] 900 [place] [phone] Mary Grace Mejias MD 112 [facility] 130 [place] [address] 07/25/2025 11:00 AM EST Office Visit [facility] [address] [place] [address] Cynthia English MD [address] [place] [address] documented as of this encounter Procedures Procedure Name Priority Date/Time Associated Diagnosis Comments XR LUMBAR SPINE MIN 4V 09/29/2023 7:22 AM EDT documented in this encounter Results * XR LUMBAR SPINE MIN 4V (09/29/2023 7:22 AM EDT) Anatomical Region Laterality Modality Other 09/29/2023 7:22 AM EDT Narrative 09/29/2023 7:25 AM EDT [address] [address] XRay Report Signed Patient: JONES PANIAGUA MR#: [id number] : 1980 Acct:[id number] Age/Sex: 42 / F ADM Date: 09/28/23 Loc: RAD Attending Dr: ZITA ROGERS Ordering Physician: ZITA ROGERS Date of Service: 09/28/23 Procedure(s): XR lumbar spine min 4V Accession Number(s): [id number] cc: GAY DE LA TORRE ; ZITA ROGERS The [address] [address] Patient Name: JONES PANIAGUA MRN: [id number] date: 1980 Sex: F Assigned Patient Location: RAD Current Patient Location: Accession/Order Number: [id number] Exam Date: 09/28/2023 14:41 Report Date: 09/29/2023 [...] M.D. Signed By: 09/29/2325 DD/ 1 TD/TT: Spiral Binder: Procedure Note Radiology, Radiologist, MD - 09/29/2023 [place] [address] XRay Report Signed Patient: JONES PANIAGUA R#: [id number] : 1980Acct:[id number] Age/Sex: 42 / FADM Date: 09/28/23 Loc: [facility] Attending Dr: ZITA ROGERS Ordering Physician: ZITA ROGERS Date of Service: 09/28/23 Procedure(s): XR lumbar spine min 4V Accession Number(s): [id number] cc: GAY DE LA TORRE ; ZITA ROGERS The [place] [id number] Patient Name: JOENS PANIAGUA MRN: [id number] date: 1980 Sex: F Assigned Patient Location: [facility] Current Patient Location: Accession/Order Number: [id number] Exam Date: 09/28/2023 14:41 Report Date: 09/29/2023 [...] Shaikh M.D. Signed By:09/29/23724 DD/ 1 TD/TT: Spiral Binder: us Zita Rogers RADAR TESTER [facility] Final Result documented in this encounter Visit Diagnoses Not on filedocumented in this encounter Care Teams Cooker Casing Relationship Specialty Start Date End Date Charles Nicole MD PCP - General Family Medicine 02/09/24 07/17/24 Gay De La Torre MD [address] [place], [place] [address] Referring Physician Family Medicine 07/18/24 documented as of this encounter
--- OUTSIDE RECORDS SUMMARY | 2025-02-26 17:56 | XMS_ITS | Encounter Summary ---
Author Organization [facility] Address [address] [place] [address] Care Team Providers Care Early Learning Teacher Name Role Phone House, Charles Culver MD Primary Care Provider [phone] Gay De La Torre MD Unavailable [phone] Encounter Details Date Type Department Care Team (Late Contact Info) Description 09/29/2023 Clinisync Result Encounter [facility] External Department Unsolicited Zita Rogers, LYE TREATER 53[address] [facility] [address] [address] Social History Tobacco Use Types Packs/Day Years [...] AM EDT Consult [facility] 703 [facility] 150 [place] [phone] Terence Blum MD 703 [facility] 150 [place] [address] 03/19/2025 10:20 AM EDT Office Visit [facility] [address] [facility] 900 [place] [address] Mary Grace Mejias MD 112 [facility] 130 [place] [address] 07/25/2025 11:00 AM EST Office Visit [facility] [address] [place] [address] Cynthia English MD [address] [place] [address] documented as of this encounter Procedures Procedure Name Priority Date/Time Associated Diagnosis Comments XR THORACIC SPINE 3V 09/29/2023 7:22 AM EDT documented in this encounter Results * XR THORACIC SPINE 3V (09/29/2023 7:22 AM EDT) Anatomical Region Laterality Modality Other 09/29/2023 7:22 AM EDT Narrative 09/29/2023 7:25 AM EDT [address] [address] XRay Report Signed Patient: JONES PANIAGUA MR#: [id number] : 1980 Acct:[id number] Age/Sex: 42 / F ADM Date: 09/28/23 Loc: RAD Attending Dr: ZITA ROGERS Ordering Physician: ZITA ROGERS Date of Service: 09/28/23 Procedure(s): XR thoracic spine 3V Accession Number(s): [id number] cc: GAY DE LA TORRE ; ZITA ROGERS The [address] [address] Patient Name: JONES PANIAGUA MRN: [id number] date: 1980 Sex: F Assigned Patient Location: RAD Current Patient Location: Accession/Order Number: [id number] Exam Date: 09/28/2023 14:43 Report Date: 09/29/2023 07:22 At the request of: ZIAT ROGERS Procedure: XR thoracic spine 3V EXAMINATION: [...] M.D. Signed By: 09/29/2325 DD/ 1 TD/TT: Deckhand Oyster Dredge: Procedure Note Radiology, Radiologist, MD - 09/29/2023 [place] [address] XRay Report Signed Patient: JONES PANIAGUA BMR#: [id number] : 1980Acct:[id number] Age/Sex: 42 / FADM Date: 09/28/23 Loc: [facility] Attending Dr: ZITA ROGERS Ordering Physician: ZITA ROGERS Date of Service: 09/28/23 Procedure(s): XR thoracic spine 3V Accession Number(s): [id number] cc: GAY DE LA TORRE ; ZITA ROGERS The [place] [address] Patient Name: JONES PANIAGUA MRN: [id number] date: 1980 Sex: F Assigned Patient Location: [facility] Current Patient Location: Accession/Order Number: [id number] Exam Date: 09/28/2023 14:43 Report Date: 09/29/2023 [...] most significant at L5-S1 Electronically authenticated by: AUROAR SHAIKH Date: 09/29/2023 07:22 Dictated By: Aurora Shaikh M.D. Signed By:09/29/23724 DD/ 1 TD/TT: Deckhand Oyster Dredge: us Zita Rogers LYE TREATER [facility] Final Result documented in this encounter Visit Diagnoses Not on filedocumented in this encounter Care Teams Early Learning Teacher Relationship Specialty Start Date End Date Charles Nicole MD PCP - General Family Medicine 02/09/24 07/17/24 Gay De La Torre MD [address] [place], [place] [phone] Referring Physician Family Medicine 07/18/24 documented as of this encounter
--- OUTSIDE RECORDS SUMMARY | 2025-02-26 17:56 | XMS_ITS | Encounter Summary ---
Author Organization [facility] Address [id number] [address] [place] [address] Care Team Providers Care Cocoa Milling Machine Operator Name Role Phone Unavailable Primary Care Provider Unavailabl e Encounter Details Date Type Department Care Team (Late st Contact Info) Description 05/05/2024 Orders Only [facility] [address] [place] [address] Felicia Payne CMA Cold extremities; Pain of lower extremity, unspecified laterality; Systemic lupus erythematosus ([facility]) Social History Tobacco Use Types Packs/Day [...]
--- OUTSIDE RECORDS SUMMARY | 2025-02-26 17:56 | XMS_ITS | Encounter Summary ---
Author Organization [facility] Address [address] [place] [address] Care Team Providers Care Electric Transfer Operator Name Role Phone Manuel Klein MD Unavailable [phone] Manuel Klein MD Primary Care Provider +-4 Manuel Klein MD Unavailable [phone] Source Comments In the event this information is protected by the Federal Confidentiality of Alcohol and Drug AbusePatient Records regulations: The Federal rules restrict any use of the information to criminally investigate or prosecute any alcohol or drug abuse patient.[facility] Encounter Details Date Type Department Care Team (Late st Contact Info) Description 06/10/2022 Patient Msg Hematology/Oncology [address] [place] [address] Cele Marshall Nurse Dre [address] [facility] [place] [address] Appointment Cancellation Request Social History Tobacco [...] N ot on file 08/09/2020 Data from: https://www.neighborhoodatlas.medicine.[facility]/. Last address used [...] Contact Info) Description 03/08/2025 2:00 PM EDT [facility] Center Hematology/Oncology [address] [place] [address] BENLYSTA - 03/21/2025 9:00 AM EDT Office Visit [facility] Laboratory [facility] [place] [address] 4 week follow up IVIG - pt to see MASON for this appt per [facility] 03/21/2025 9:20 AM EDT Visit (SP) Office Hematology/Oncology [address] [place] [address] Jose Cho MD [address] [place] [address] 4 week follow up IVIG - pt to see MASON for this appt per [facility] 03/21/2025 9:40 AM EDT Infusion Center Hematology/Oncology [address] [place] [address] Gabbi, Chair [address] [place] [address] 4 week follow up IVIG - pt to see MASON for this appt per [facility] 04/05/2025 2:00 PM EST Infusion Center Hematology/Oncology [address] [place] [address] BENLYSTA - 05/03/2025 2:00 PM [facility] Infusion Center Hematology/Oncology [address] [place] [address] BENLYSTA - documented as of this encounter Visit Diagnoses Not on filedocumented in this encounter Care Teams Electric Transfer Operator Relationship Specialty Start Date End Date Manuel Klein MD PCP - General Family Medicine 02/27/22 Manuel Klein MD Referring Family Medicine 02/12/22 Manuel Klein MD [address] [place] [address] Referring Family Medicine 07/06/24 documented as of this encounter
--- OUTSIDE RECORDS SUMMARY | 2025-02-26 17:56 | XMS_ITS | Encounter Summary ---
Author Organization [facility] Address [address] [facility] [place] [address] Care Team Providers Care Inspector Grain Mill Products Name Role Phone Gay De La Torre MD Unavailable [phone] Encounter Details Date Type Department Care [...] EDT Consult [facility] [address] [address] Terence Blum MD 703 [facility] 150 [place] [address] 03/19/2025 10:20 AM EDT Office Visit [facility] [address] [facility] 900 [place] [address] Mary Grace Mejias MD 112 [facility] 130 [place] [address] 07/25/2025 11:00 AM EST Office Visit [facility] [address] [place] [address] Cynthia English MD [address] [place] [address] documented as of this encounter Visit Diagnoses Not on filedocumented in this encounter Care Teams Inspector Grain Mill Products Relationship Specialty Start Date End Date Gay De La Torre MD [address] [place] [address] Referring Physician Family Medicine 07/18/24 documented as of this encounter
--- OUTSIDE RECORDS SUMMARY | 2025-02-26 17:56 | XMS_ITS | Encounter Summary ---
Author Organization [facility] Address [address] [place] [address] Care Team Providers Care Auditing Clerk Name Role Phone Manuel Klein MD Unavailable [phone] Manuel Klein MD Primary Care Provider +-4 Manuel Klein MD Unavailable [phone] Source Comments In the event this information is protected by the Federal Confidentiality of Alcohol and Drug AbusePatient Records regulations: The Federal rules restrict any use of the information to criminally investigate or prosecute any alcohol or drug abuse patient.[facility] Encounter Details Date Type Department Care Team (Late st Contact Info) Description 07/09/2022 Patient Msg [facility] [address] [place] [address] Christie Phan MD [address] [place] [address] Appointment Follow-UP Social History Tobacco [...] ot on file 08/09/2020 Data from: https://www.neighborhoodatlas.medicine.[facility]/. Last address used for [...] Info) Description 03/08/2025 2:00 PM EDT [facility] Hematology/Oncology [address] [facility] [place] [address] BENLYSTA - 03/21/2025 9:00 AM EDT Office Visit [facility] Laboratory [address] [place] [address] [place] [address] 4 week follow up IVIG - pt to see MASON for this appt per [facility] 03/21/2025 9:20 AM EDT Visit (SP) Office Hematology/Oncology [address] [facility] [place] [address] Jose Cho MD [address] [facility] [place] [address] 4 week follow up IVIG - pt to see MASON for this appt per [facility] 03/21/2025 9:40 AM EDT Infusion Center Hematology/Oncology [address] [facility] [place] [address] Gabbi, Chair 4 [address] [facility] [place] [address] 4 week follow up IVIG - pt to see MASON for this appt per [facility] 04/05/2025 2:00 PM EST Infusion Center Hematology/Oncology [address] [facility] [place] [address] BENLYSTA - 05/03/2025 2:00 PM EST Infusion Center Hematology/Oncology [address] [facility] [place] [address] BENLYSTA - documented as of this encounter Visit Diagnoses Not on filedocumented in this encounter Care Teams Auditing Clerk Relationship Specialty Start Date End Date Manuel Klein MD PCP - General Family Medicine 02/27/22 Manuel Klein MD Referring Family Medicine 02/12/22 Manuel Klein MD [address] [place] [address] Referring Family Medicine 07/06/24 documented as of this encounter
--- OUTSIDE RECORDS SUMMARY | 2025-02-26 17:56 | XMS_ITS | Encounter Summary ---
Author Organization [facility] Address [id number] [address] [place] [address] Care Team Providers Care Rig Builder Helper Name Role Phone Unavailable Primary Care Provider Unavailabl e Encounter Details Date Type Department Care Team (Late st Contact Info) Description 04/05/2024 Orders Only [facility] [address] [place] [address] Ref Prov, [place] [address] Social History Tobacco Use Types Packs/Day Years [...]
--- OUTSIDE RECORDS SUMMARY | 2025-02-26 17:56 | XMS_ITS | Encounter Summary ---
Author Organization [facility] Address [facility] [place] [address] Care Team Providers Care Machine Slat Basket Maker Name Role Phone Manuel Klein MD Unavailable [phone] Manuel Klein MD Primary Care Provider +-4 Manuel Klein MD Unavailable [phone] Source Comments In the event this information is protected by the Federal Confidentiality of Alcohol and Drug AbusePatient Records regulations: The Federal rules restrict any use of the information to criminally investigate or prosecute any alcohol or drug abuse patient.[facility] Encounter Details Date Type Department Care Team (Late st Contact Info) Description 07/27/2022 Patient Msg Neurology [address] [place] [address] Lexus Heck APRN.[place] [id number] Sleep Follow up Social History Tobacco Use [...] ot on file 08/09/2020 Data from: https://www.neighborhoodatlas.medicine.[facility]/. Last address used for calculation Not on [...] [facility] Hematology[facility]Oncology [address] [place] [address] BENLYSTA - 03/21/2025 9:00 AM EDT Office Visit [facility] [address] [place] [address] [place] [address] 4 week follow up IVIG - pt to see MASON for this appt per [facility] 03/21/2025 9:20 AM EDT Visit (SP) Office Hematology/Oncology [address] [address] Jose Cho MD [address] [place] [address] 4 week follow up IVIG - pt to see MASON for this appt per [facility] 03/21/2025 9:40 AM EDT Infusion Center Hematology/Oncology [address] [place] [address] Gabbi, Chair [address] [place] [address] 4 week follow up IVIG - pt to see MASON for this appt per [facility] 04/05/2025 2:00 PM EST Infusion Center Hematology/Oncology [address] [place] [address] BENLYSTA - 05/03/2025 2:00 PM [facility] Infusion Center Hematology/Oncology [address] [place] [address] BENLYSTA - documented as of this encounter Visit Diagnoses Not on filedocumented in this encounter Care Teams Machine Slat Basket Maker Relationship Specialty Start Date End Date Manuel Klein MD PCP - General Family Medicine 02/27/22 Manuel Klein MD Referring Family Medicine 02/12/22 Manuel Klein MD [address] [place] [address] Referring Family Medicine 07/06/24 documented as of this encounter
--- OUTSIDE RECORDS SUMMARY | 2025-02-26 17:56 | XMS_ITS | Encounter Summary ---
Author Organization [facility] Address [address] [place] [address] Care Team Providers Care Digital Strategist Senior Manager Name Role Phone Manuel Klein MD Unavailable [phone] Manuel Klein MD Primary Care Provider +-4 Manuel Klein MD Unavailable [phone] Source Comments In the event this information is protected by the Federal Confidentiality of Alcohol and Drug AbusePatient Records regulations: The Federal rules restrict any use of the information to criminally investigate or prosecute any alcohol or drug abuse patient.[facility] Encounter Details Date Type Department Care Team (Late st Contact Info) Description 03/18/2022 Get Medical Advice Hematology/Oncology [facility] [place] [address] Jose Cho MD [facility] [address] [place] [address] Blood work Social History Tobacco Use [...] N ot on file 08/09/2020 Data from: https://www.neighborhoodatlas.[facility]/. Last address used for calculation [...] 2:00 PM EDT Infusion Center Hematology/Oncology [address] [place] [address] BENLYSTA - 03/21/2025 9:00 AM EDT Office Visit [facility] [address] [place] [address] 4 week follow up IVIG - pt to see MASON for this appt per [facility] 03/21/2025 9:20 AM EDT Visit (SP) Office Hematology/Oncology [address] [place] [address] Jose Cho MD [address] [place] [address] 4 week follow up IVIG - pt to see MASON for this appt per [facility] 03/21/2025 9:40 AM EDT Infusion Center Hematology/Oncology [address] [place] [address] [place], Chair [address] [place] [address] 4 week follow up IVIG - pt to see MASON for this appt per [facility] 04/05/2025 2:00 PM EST Infusion Center Hematology/Oncology [address] [place] [address] BENLYSTA - 05/03/2025 2:00 PM [facility] Infusion Center Hematology/Oncology [address] [place] [address] BENLYSTA - documented as of this encounter Visit Diagnoses Not on filedocumented in this encounter Care Teams Digital Strategist Senior Manager Relationship Specialty Start Date End Date Manuel Klein MD PCP - General Family Medicine 02/27/22 Manuel Klein MD Referring Family Medicine 02/12/22 Manuel Klein MD [address] [place] [address] Referring Family Medicine 07/06/24 documented as of this encounter
--- OUTSIDE RECORDS SUMMARY | 2025-02-26 17:56 | XMS_ITS | Encounter Summary ---
Author Organization [facility] Address [address] [place] [address] Care Team Providers Care Bilingual Branch Manager Name Role Phone Manuel Klein MD Unavailable [phone] Manuel Klein MD Primary Care Provider +-4 Manuel Klein MD Unavailable [phone] Source Comments In the event this information is protected by the Federal Confidentiality of Alcohol and Drug AbusePatient Records regulations: The Federal rules restrict any use of the information to criminally investigate or prosecute any alcohol or drug abuse patient.[facility] Encounter Details Date Type Department Care Team (Late st Contact Info) Description 03/26/2022 Patient Msg Allergy [address] [place] [phone] Misty Nelson MD [facility] [place] [address] lab results Social History Tobacco [...] ot on file 08/09/2020 Data from: https://www.neighborhoodatlas.medicine.[facility]/. Last address used for calculation Not [...] [facility] Hematology/Oncology [address] [place] [address] [place] [address] BENLYSTA - 03/21/2025 9:00 AM EDT Office Visit [facility] Laboratory [address] [place] [address] 4 week follow up IVIG - pt to see MASON for this appt per [facility] 03/21/2025 9:20 AM EDT Visit (SP) Office Hematology/Oncology [address] [facility] [place] [address] Jose Cho MD [address] [place] [address] 4 week follow up IVIG - pt to see MASON for this appt per [facility] 03/21/2025 9:40 AM EDT Infusion Center Hematology/Oncology [address] [place] [address] [place], [facility] [address] [place] [address] 4 week follow up IVIG - pt to see MASON for this appt per [facility] 04/05/2025 2:00 PM EST Infusion Center Hematology/Oncology [address] [facility] [place] [address] BENLYSTA - 05/03/2025 2:[address] [facility] Infusion Center Hematology/Oncology [address] [place] [address] BENLYSTA - documented as of this encounter Visit Diagnoses Not on filedocumented in this encounter Care Teams Bilingual Branch Manager Relationship Specialty Start Date End Date Manuel Klein MD PCP - General Family Medicine 02/27/22 Manuel Klein MD Referring Family Medicine 02/12/22 Manuel Klein MD [address] [place] [address] Referring Family Medicine 07/06/24 documented as of this encounter
--- OUTSIDE RECORDS SUMMARY | 2025-02-26 17:56 | XMS_ITS | Encounter Summary ---
Author Organization [facility] Address [address] [facility] [place] [address] Care Team Providers Care Assistant Director Of Plant Operations Name Role Phone House, Charles Culver MD Primary Care Provider Gay De La Torre MD Unavailable [phone] Encounter Details Date Type Department Care Team (Late Contact Info) Description 11/18/2023 Clinisync Result Encounter [facility] Department Unsolicited Katy Valdivia, DO [address] [facility] [place], [place] [id number] Social History Tobacco Use Types Packs/Day Years [...] AM EDT Consult [facility] [address] [facility] [address] [place] [address] Terence Blum MD [address] [facility] [address] [place] [address] 03/19/2025 10:20 AM EDT Office Visit [facility] [address] [place] [address] Mary Grace Mejias MD [address] [place] [address] 07/25/2025 11:00 AM EST Office Visit [facility] [address] [place] [address] Cynthia nEglish MD [address] [place] [address] documented as of this encounter Procedures [...] EDT Narrative 11/18/2023 4:42 PM EDT The [address] [address] Ultrasound Report Signed Patient: JONES PANIAGUA MR#: [id number] : 1980 Acct:[id number] Age/Sex: 43 / F ADM Date: 11/18/23 Loc: US Attending Dr: Katy Valdivia D.O. Ordering Physician: Katy Valdivia D.O. Date of Service: 11/18/23 Procedure(s): US pelvis w/ transvaginal Accession Number(s): [id number] cc: GAY DE LA TORRE ; Katy Valdivia D.O. The [place] [id number] Patient Name: JONES PANIAGUA MRN: [id number] date: 1980 Sex: F Assigned Patient Location: US Current Patient Location: US Accession/Order Number: [id number] Exam Date: 11/18/2023 14:00 Report Date: 11/18/2023 [...] Signed By: 11/18/23 1642 DD/ 1639 TD/TT: Care Provider: Procedure Note Radiology, Radiologist, MD - 11/18/2023 [place] [address] Ultrasound Report Signed Patient: JONES PANIAGUA BMR#: [id number] : 1980Acct:[id number] Age/Sex: 43 / FADM Date: 11/18/23 Loc: US Attending Dr: Katy Valdivia D.O. Ordering Physician: Katy Valdivia D.O. Date of Service: 11/18/23 Procedure(s): US pelvis w/ transvaginal Accession Number(s): [id number] cc: GAY DE LA TORRE ; Katy Valdivia D.O. [place] [address] Patient Name: JONES PANIAGUA MRN: [facility]:[id number] date: 1980 Sex: F Assigned Patient Location: US Current Patient Location: US Accession/Order Number: [id number] Exam Date: 11/18/2023 14:00 Report Date: 11/18/2023 [...] M.D. Signed By:11/18/23 1642 DD/ 1639 TD/TT: Care Provider: us Katy Valdivia DO [facility] Final Result * (ABNORMAL) ALL DEHYDROEPIANDROSTERONE (11/18/2023 3:04 PM EDT) DHEA, SERUM 25(A) 31 - 701 ng/dL [facility] Comment: This test was developed and its performance characteristics determined by [facility]. It has not been cleared or approved by the Food and Drug Administration. Performed at: [address] [id number] Water Vessel Captain: Senait Hardin MD, Phone: [phone] 11/18/2023 3:04 PM EDT 11/18/2023 3:14 PM EDT Narrative [facility] - 11/23/2023 12:10 PM EDT Katy Skip DO [facility] Final Result [facility] * (ABNORMAL) [facility] PROLACTIN (11/18/2023 3:04 PM EDT) PROLACTIN 4.7(A) 4.8 - 33.4 ng/mL [facility] Comment: Performed at: [address] [id number] Water Vessel Captain: Doyle Mendenhall PhD, Phone: [phone] 11/18/2023 3:04 PM EDT 11/18/2023 3:14 PM EDT Narrative [facility] - 11/19/2023 4:07 AM EDT Katy Skip DO [facility] Final Result Performing Organization Address City[facility] Co de Phone Number [...] EDT Katy Skip DO [facility] Final Result [facility] TB * ALL LUTEINIZING HORMONE (11/18/2023 3:04 PM EDT) LUTEINIZING HORMONE(LH) 24.9 . mIU/mL [facility] Comment: Adult Female Range Follicular phase 2.4 - 12.6 Ovulation phase 14.0 - 95.6 Luteal phase 1.0 - 11.4 Postmenopausal 7.7 - 58.5 11/18/2023 3:04 PM EDT 11/18/2023 3:14 PM EDT Narrative [facility] - 11/19/2023 4:07 AM EDT Katy Skip DO [facility] Final Result Performing Organization Address [facility] Co de Phone Number [facility] TB * (ABNORMAL) ALL DHEA SULFATE (11/18/2023 3:04 PM EDT) DHEA-SULFATE 15.4(A) 57.3 - 279.2 ug/dL [facility] 11/18/2023 3:04 PM EDT 11/18/2023 3:14 PM EDT Narrative [facility] - 11/19/2023 4:07 AM EDT Katy Skip DO [facility] Final Result Performing Organization Address [facility] Co de Phone Number [facility] documented in this encounter Visit Diagnoses Not on filedocumented in this encounter Care Teams Assistant Director Of Plant Operations Relationship Specialty Start Date End Date Charles Nicole MD PCP - General Family Medicine 02/09/24 07/17/24 Gay De La Torre MD [address] [place] [address] Referring Physician Family Medicine 07/18/24 documented as of this encounter
--- OUTSIDE RECORDS SUMMARY | 2025-02-26 17:56 | XMS_ITS | Clinical Summary ---
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 02/04 Excessive [...] AM EDT Infusion Center Hematology/Oncolo gy [address] [place] [address] Frequent infections (Primary Dx); Hypogammaglobulinemia (HCC); Bilateral leg weakness; Discoid lupus erythematosus 02/21/2025 9:00 AM EDT Visit (SP) Office Hematology/Oncolo gy [address] [place], [place] [address]RY [facility] [place] [place] [address] Fara Lopez APRN.EQUIPMENT OPERATOR WAREHOUSE Frequent infections (Primary Dx); Hypogammaglobulinemia (HCC); Bilateral leg weakness; Discoid lupus erythematosus; Vitamin B12 deficiency; Shortness of breath; Other iron deficiency anemia; Malaise and fatigue 02/21/2025 Get Medical Advice Hematology/Oncolo [address] [place] [address] Provider, Ccf Blood work 02/21/2025 Telephone Cancer Appts [address] [place] [address] Fara Lopez APRN.EQUIPMENT OPERATOR WAREHOUSE Results 02/12/2025 Telephone Hematology/Oncolo gy [address] [place] [address] [place] [address] Enma Hamm RN Lab Orders 02/08/2025 2:00 PM EDT Infusion Center Hematology/[facility] gy [address] [place] [address] [place] [address] Elevated sed rate (Primary Dx); Megaloblastic anemia due to vitamin B12 deficiency; Other systemic lupus erythematosus with other organ involvement (HCC) 02/06/2025 Orders Only Hematology/Oncolo gy [address] [place] [address] [place] [address] Jose Cho MD 01/24/2025 9:00 AM EDT Infusion Center Hematology/[facility]col[facility] gy [address] [place] [address] [place] [address] Frequent infections (Primary Dx); Hypogammaglobulinemia (HCC); Bilateral leg weakness; Discoid lupus erythematosus; Elevated sed rate; Megaloblastic anemia due to vitamin B12 deficiency 01/24/2025 Orders Only Hematology/Oncolo gy [address] [place] [address] [place] [address] Jose Cho MD Frequent infections (Primary Dx); Hypogammaglobulinemia (HCC); Bilateral leg weakness; Discoid lupus erythematosus 01/23/2025 Refill Rheumatology [address] [place] [address] Sandra Park MD Refill Request 01/22/2025 Travel 01/18/2025 Telephone Rheumatology [address] [place] [address] Sandra Park MD Results 01/11/2025 2:00 PM EDT Infusion Center Hematology/[facility] gy [address] [place] [address] Other systemic lupus erythematosus with other organ involvement (HCC) (Primary Dx); Elevated LFTs; Anemia of chronic disease; Elevated sed rate; Elevated C-reactive protein (CRP); Vitamin D deficiency; Vitamin B12 deficiency; Screening-pulmonary TB 12/27/2024 9:00 AM EDT Infusion Center Hematology/[facility] gy [address] [place] [address] Frequent infections (Primary Dx); Hypogammaglobulinemia (HCC); Bilateral leg weakness; Discoid lupus erythematosus; Elevated sed rate; Megaloblastic anemia due to vitamin B12 deficiency 12/20/2024 Orders Only Hematology/Oncolo gy [address] [place] [address] Neda Hill PAJuliusC 12/19/2024 Orders Only Hematology/Oncolo gy [address] [place] [address] Neda Hill PA-C 12/19/2024 Orders Only Hematology/Oncolo gy [address] [place] [address] Rebekah Rojas APRN.EQUIPMENT OPERATOR WAREHOUSE 12/14/2024 2:00 PM EDT Infusion Center Hematology/Oncolo gy [address] [place] [address] Other systemic lupus erythematosus with other organ involvement (HCC) (Primary Dx) 12/14/2024 Abstract Neurology [address] [place] [address] [facility] CMN 12/14/2024 Orders Only Rheumatology [address] [place] [address] Sandra Park MD 12/12/2024 Travel 11/30/2024 Results Follow-Up Hematology/Oncolo gy [address] [place] [address] [place] [address] Fara Lopez APRN.EQUIPMENT OPERATOR WAREHOUSE Results 11/29/2024 9:30 AM EDT Infusion Center Hematology/[place]col[facility] gy [address] [place] [address] [place] [address] Elevated sed rate (Primary Dx); Megaloblastic anemia due to vitamin B12 deficiency; Frequent infections; Hypogammaglobulinemia (HCC); Bilateral leg weakness; Discoid lupus erythematosus 11/29/2024 9:00 AM EDT Visit (SP) Office Hematology/Oncolo gy [address] [place] [address] [place] [address] Fara Lopez APRN.CNP Hypogammaglobulinemia (HCC) (Primary Dx); Vitamin B12 deficiency; Other iron deficiency anemia; Malaise and fatigue; Shortness of breath; Other specified disorders of breast; Pre-diabetes; Gastro-esophageal reflux disease without esophagitis 11/29/2024 Orders Only Hematology/Oncolo gy [address] [place] [address] [place] [address] Fara Lopez APRN.CNP Frequent infections; Hypogammaglobulinemia (HCC); Bilateral leg weakness; Discoid lupus erythematosus 11/29/2024 Travel from Last 3 Months Immunizations Immunization Administration Dates Next Due COVID-19 vaccine, age 12+ yr ([employer] [facility]) 02/23/2023 Family History Medical History [...] is lower risk 4 09/24/2022 Data from: https://www.neighborhoodatlas.[facility]/. Last address used for calculation [address] 09/24/2022 Comments No Sex and Gender [...] 03/08/2025 2:00 PM EDT Infusion Center Hematology/Oncology [facility] [place] [address] BENLYSTA - 03/21/2025 9:00 AM EDT Office Visit [facility] [address] [place] [address] 4 week follow up IVIG - pt to see MASON for this appt per Fara 03/21/2025 9:20 AM EDT Visit (SP) Office Hematology/Oncology [address] [place] [address] Jose Cho MD [address] [place] [address] 4 week follow up IVIG - pt to see MASON for this appt per Fara 03/21/2025 9:40 AM EDT Infusion Center Hematology/Oncology [facility] [place] [address] Gabbi, Chair [address] [place] [address] [place] [address] 4 week follow up IVIG - pt to see MASON for this appt per Fara 04/05/2025 2:00 PM [facility] Infusion Center Hematology/Oncology [address] [place] [address] BENLYSTA - 05/03/2025 2:00 PM [facility] Infusion Center Hematology/Oncology [address] [place] [address] BENLYSTA - Health Maintenance Due Date Last [...] - 1,245 pg/mL 02/21/2025 10:05 PM EDT [facility] Blood BLOOD SPECIMEN / Unknown Venipuncture / Unknown 02/21/2025 8:51 AM EDT 02/21/2025 8:51 AM EDT us Fara Lopez LIVING COACH.EQUIPMENT OPERATOR WAREHOUSE LABORATORY Final Resul t [facility] [address] [facility] [address] [address], * (ABNORMAL) IRON AND TIBC (02/21/2025 8:51 AM EDT) Only the most recent of2 resultswithin the time period is included. Iron 156 41 - 186 ug/dL 02/21/2025 9:46 PM EDT [facility] TIBC 443(H) 232 - 386 ug/dL 02/21/2025 9:46 PM EDT [facility] Transferrin Saturation 35.2 15.0 - 57.0 % 02/21/2025 9:46 PM EDT [facility] Blood BLOOD SPECIMEN / Unknown Venipuncture / Unknown 02/21/2025 8:51 AM EDT 02/21/2025 8:51 AM EDT Fara Lopez LIVING COACH.[facility] LABORATORY Final Resul t Performing Organization Address [facility] de Phone Number [facility] [address] [address], [place] * (ABNORMAL) IMMUNOGLOBULINS,IGG,IGA,IGM (02/21/2025 8:51 AM EDT) Only the most recent of2 resultswithin the time period is included. IgG 610(L) 700 - 1,600 mg/dL 02/21/2025 6:21 PM EDT [facility] IgA 184 70 - 400 mg/dL 02/21/2025 6:21 PM EDT [facility] IgM 454(H) 40 - 230 mg/dL 02/21/2025 6:21 PM EDT [facility] Blood BLOOD SPECIMEN / Unknown Venipuncture / Unknown 02/21/2025 8:51 AM EDT 02/21/2025 8:51 AM EDT Fara Lopez LIVING COACH.[facility] LABORATORY Final Resul t Performing Organization Address [facility] Co de Phone Number [facility] [address] [place] [address], [place] * FOLATE, SERUM (02/21/2025 8:51 AM EDT) Only the most recent of2 resultswithin the time period is included. [facility] Folate >20.0 >4.7 ng/mL 02/21/2025 10:05 PM EDT [facility] Comment: A result of > 20 ng/mL is not necessarily indicative of a pathologic or treatable condition: it reflects a limitation of the test methodology. Assay reference range: 4.8 to 24.2 ng/mL. Suitable for detection of folate deficiency. Reference: Folate III (Folate III) [package insert V 1.0 Serbian]. [employer], [place], [place]: March 2015. Blood BLOOD SPECIMEN / Unknown Venipuncture / Unknown 02/21/2025 8:51 AM EDT 02/21/2025 8:51 AM EDT Fara Lopez LIVING COACH.[facility] LABORATORY Final Resul t Performing Organization Address City/[facility]/ZIP Co de Phone Number [facility] [address] [place] [address], [place] * FERRITIN (02/21/2025 8:51 AM EDT) Only the most recent of2 resultswithin the time period is included. [facility] Ferritin 83.6 14.7 - 205.1 ng/mL 02/21/2025 10:05 PM EDT [facility] Blood BLOOD SPECIMEN / Unknown Venipuncture / Unknown 02/21/2025 8:51 AM EDT 02/21/2025 8:51 AM EDT Fara Lopez LIVING COACH.[facility] LABORATORY Final Resul t [facility] [address] [place] [address], [place] * (ABNORMAL) COMPREHENSIVE METABOLIC PANEL (02/21/2025 8:51 AM EDT) Only the most recent of3 resultswithin the time period is included. [facility] Protein, Total 7.6 6.3 - 8.0 g/dL 02/21/2025 9:45 AM EDT [facility] Albumin 4.3 3.9 - 4.9 g/dL 02/21/2025 9:45 AM T [facility] Calcium, Total 10.2 8.5 - 10.2 mg/dL 02/21/2025 9:45 AM EDT [facility] Bilirubin, Total 0.3 0.2 - 1.3 mg/dL 02/21/2025 9:45 AM [facility] Alkaline Phosphatase 83 34 - 123 U/L 02/21/2025 9:45 AM T [facility] AST 20 13 - 35 U/L 02/21/2025 9:45 AM [facility] ALT 49(H) 7 - 38 U/L 02/21/2025 9:45 AM [facility] Glucose 248(H) 74 - 99 mg/dL 02/21/2025 9:45 AM [facility] Comment: The [place] Diabetes Association (ADA) provides guidance for cutoff [...] Standards of Medical Care in Diabetes 2016, [place] Diabetes Association. Diabetes Care. 2016.39(Suppl 1). BUN 16 7 - 21 mg/dL 02/21/2025 9:45 AM [facility] Creatinine 0.49(L) 0.58 - 0.96 mg/dL 02/21/2025 9:45 AM [facility] Sodium 138 136 - 144 mmol/L 02/21/2025 9:45 AM [facility] Potassium 4.1 3.7 - 5.1 mmol/L 02/21/2025 9:45 AM EDT [facility] Chloride 101 98 - 107 mmol/L 02/21/2025 9:45 AM EDT [facility] CO2 20(L) 22 - 30 mmol/L 02/21/2025 9:45 AM EDT [facility] Anion Gap 17(H) 8 - 15 mmol/L 02/21/2025 9:45 AM EDT [facility] Estimated Glomerular Filtration Rate 119 >=60 mL/min/1. 73m 02/21/2025 9:45 AM EDT [facility] Comment:Estimated Glomerular Filtration Rate [...] 02/21/2025 8:51 AM EDT us Fara Lopez APRN.[facility] LABORATORY Final Resul t [facility] [address] [place] [address] * (ABNORMAL) COMPLETE BLOOD COUNT AND DIFFERENTIAL (02/21/2025 8:51 AM EDT) Only the most recent of2 resultswithin the time period is included. WBC 13.16(H) 3.70 - 11.00 k/uL 02/21/2025 8:59 AM EDT [facility] RBC 4.77 3.90 - 5.20 m/uL 02/21/2025 8:59 AM EDT [facility] Hemoglobin 15.1 11.5 - 15.5 g/dL 02/21/2025 8:59 AM EDT [facility] Hematocrit 46.0 36.0 - 46.0 % 02/21/2025 8:59 AM EDT [facility] MCV 96.4 80.0 - 100.0 fL 02/21/2025 8:59 AM EDT [facility] MCH 31.7 26.0 - 34.0 pg 02/21/2025 8:59 AM EDT [facility] MCHC 32.8 30.5 - 36.0 g/dL 02/21/2025 8:59 AM EDT [facility] RDW-CV 14.3 11.5 - 15.0 % 02/21/2025 8:59 AM EDT [facility] Platelet Count 305 150 - 400 k/uL 02/21/2025 8:59 AM EDT [facility] MPV 9.9 9.0 - 12.7 fL 02/21/2025 8:59 AM EDT [facility] Neutrophils % 75.5 % 02/21/2025 8:59 AM EDT [facility] Abs Neut 9.94(H) 1.45 - 7.50 k/uL 02/21/2025 8:59 AM EDT [facility] Lymphocytes % 14.4 % 02/21/2025 8:59 AM EDT [facility] Abs Lymph 1.89 1.00 - 4.00 k/uL 02/21/2025 8:59 AM EDT [facility] Monocytes % 7.0 % 02/21/2025 8:59 AM EDT [facility] Abs Collin 0.92(H) <0.87 k/uL 02/21/2025 8:59 AM EDT [facility] Eosinophils % 0.8 % 02/21/2025 8:59 AM EDT [facility] Abs Eosin 0.11 <0.46 k/uL 02/21/2025 8:59 AM EDT [facility] Basophils % 0.7 % 02/21/2025 8:59 AM EDT [facility] Abs Baso 0.09 <0.11 k/uL 02/21/2025 8:59 AM EDT [facility] Immature Granulocytes % 1.6 % 02/21/2025 8:59 AM EDT [facility] Abs Immature Gran 0.21(H) <0.10 k/uL 02/21/2025 8:59 AM EDT [facility] NRBC 0.0 /100 WBC 02/21/2025 8:59 AM EDT [facility] Absolute nRBC <0.01 <0.01 k/uL 02/21/2025 8:59 AM EDT [facility] Diff Type Auto 02/21/2025 8:59 AM EDT [facility] Blood BLOOD SPECIMEN / Unknown Venipuncture / Unknown 02/21/2025 8:51 AM EDT 02/21/2025 8:51 AM EDT us Fara Lopez LIVING COACH.EQUIPMENT OPERATOR WAREHOUSE LABORATORY Final Resul t [facility] [address] [place] [address] * BLOOD TB SCREEN (01/11/2025 1:48 PM EDT) TB Nil 0.03 <=8.00 IU/mL 01/13/2025 9:22 PM EDT [facility] TB1 Ag minus Nil 0.01 <0.35 IU/mL 01/13/2025 9:22 PM EDT [facility] TB2 Ag minus Nil 0.01 <0.35 IU/mL 01/13/2025 9:22 PM EDT [facility] TB Result Negative 01/13/2025 9:22 PM EDT [facility] Mitogen minus Nil >9.97 >=0.50 IU/mL 01/13/2025 9:22 PM EDT [facility] TB Gamma Interpretation Infection with M. tuberculosis complex is unlikely. If latent tuberculosis infection is highly suspected, a negative result does not rule out the infection. Specimens from immunocompromised patients and those <5 years of age may show false negative results. In case of a contact investigation, please repeat 8-12 weeks after a known exposure. 01/13/2025 9:22 PM EDT [facility] Blood BLOOD SPECIMEN / Unknown Venipuncture / Unknown 01/11/2025 1:48 PM EDT 01/11/2025 2:06 PM EDT us Sandra Park MD LABORATORY Final Result Performing Organization Address City/[facility]/ZIP Co de Phone Number [facility] [address] [place] [address], [place] * VITAMIN D 25 HYDROXY (01/11/2025 1:48 PM EDT) Vitamin D 25 Hydroxy 32.2 31.0 - 80.0 ng/mL 01/12/2025 1:27 PM EDT [facility] Blood BLOOD SPECIMEN / Unknown Venipuncture / Unknown 01/11/2025 1:48 PM EDT 01/11/2025 2:06 PM EDT us Sandra Park MD LABORATORY Final Result Performing Organization Address City/[facility] Co de Phone Number [facility] [address] [place] [id number], [place] * (ABNORMAL) SEDIMENTATION RATE, WESTERGREN (01/11/2025 1:48 PM EDT) Sed Rate, Westergren 34(H) 0 - 20 mm/hr 01/12/2025 1:02 AM EDT [facility] Blood BLOOD SPECIMEN / Unknown Venipuncture / Unknown 01/11/2025 1:48 PM EDT 01/11/2025 2:06 PM EDT us Sandra Park MD LABORATORY Final Result Performing Organization Address City/[facility]/ZIP Co de Phone Number [facility] [address] [place] [id number], [place] * HEPATITIS B SURFACE ANTIGEN (01/11/2025 1:48 PM EDT) HBsAg Negative Negative 01/12/2025 11:45 AM EDT [facility] Blood BLOOD SPECIMEN / Unknown Venipuncture / Unknown 01/11/2025 1:48 PM EDT 01/11/2025 2:06 PM EDT Sandra Park MD LABORATORY Final Result Performing Organization Address [facility]/ZIP Co de Phone Number [facility] [address] [place] [id number], [place] * HEPATITIS B SURFACE ANTIBODY (01/11/2025 1:48 PM EDT) Hep B Surface Ab, Qual Positive 01/12/2025 11:44 AM EDT [facility] Comment:Consistent with sero logical evidence of immunity to Hepatitis B Virus. Hep B Surface Ab Quant 177.77 mIU/mL 01/12/2025 11:44 AM EDT [facility] Comment: <8 mIU/mL: No serological evidence [...] MD LABORATORY Final Result Performing Organization Address City/[facility]/ZIP Co de Phone Number [facility] [address] [place] [id number], [place] * HEPATITIS B CORE ANTIBODY TOTAL (01/11/2025 1:48 PM EDT) Hepatitis B Core Ab, Total Negative Negative 01/12/2025 11:47 AM EDT [facility] Comment:No evidence of curre nt or past infection with Hepatitis B virus. Should recent infection be suspected, repeat testing may be considered 3-4 weeks after this draw. Blood BLOOD SPECIMEN / Unknown Venipuncture / Unknown 01/11/2025 1:48 PM EDT 01/11/2025 2:06 PM EDT us Sandra Park MD LABORATORY Final Result [facility] [address] [facility] [address] [place] [address], * (ABNORMAL) COMPLETE BLOOD COUNT (01/11/2025 1:48 PM EDT) WBC 12.61(H) 3.70 - 11.00 k/uL 01/11/2025 2:10 PM EDT [facility] RBC 4.29 3.90 - 5.20 m/uL 01/11/2025 2:10 PM EDT [facility] Hemoglobin 13.8 11.5 - 15.5 g/dL 01/11/2025 2:10 PM EDT [facility] Hematocrit 41.5 36.0 - 46.0 % 01/11/2025 2:10 PM EDT [facility] MCV 96.7 80.0 - 100.0 fL 01/11/2025 2:10 PM EDT [facility] MCH 32.2 26.0 - 34.0 pg 01/11/2025 2:10 PM EDT [facility] MCHC 33.3 30.5 - 36.0 g/dL 01/11/2025 2:10 PM EDT [facility] RDW-CV 14.5 11.5 - 15.0 % 01/11/2025 2:10 PM EDT [facility] Platelet Count 265 150 - 400 k/uL 01/11/2025 2:10 PM EDT [facility] MPV 10.6 9.0 - 12.7 fL 01/11/2025 2:10 PM EDT [facility] Absolute nRBC <0.01 <0.01 k/uL 01/11/2025 2:10 PM EDT [facility] Blood BLOOD SPECIMEN / Unknown Venipuncture / Unknown 01/11/2025 1:48 PM EDT 01/11/2025 2:06 PM EDT us Sandra Park MD LABORATORY Final Result [facility] [address] [place] [address] * C-REACTIVE PROTEIN (01/11/2025 1:48 PM EDT) [facility] CRP <0.3 <0.9 mg/dL 01/12/2025 3:28 AM EDT [facility] Blood BLOOD SPECIMEN / Unknown Venipuncture / Unknown 01/11/2025 1:48 PM EDT 01/11/2025 2:06 PM EDT us Sandra Park MD LABORATORY Final Result Performing Organization Address City/[facility]/ZIP Co de Phone Number [facility] [address] [place] [address], * HEPATITIS C ANTIBODY IA WITH CONFIRMATION (01/11/2025 1:48 PM EDT) Pathologist [facility] Hep C Antibody IA Negative Negative 01/12/2025 11:34 AM EDT [facility] Comment:The result suggests no evidence of infection with Hepatitis C virus. Should recent infection be suspected, repeat testing may be considered 4-6 weeks after this draw. Blood BLOOD SPECIMEN / Unknown Venipuncture / Unknown 01/11/2025 1:48 PM EDT 01/11/2025 2:06 PM EDT us Sandra Park MD LABORATORY Final Result [facility] [address] [facility] [place] [id number], [place] from Last 3 Months Insurance Member Subscriber Plan / Payer (Ef fective 2022-Present) Name:Ariadna Paniagua Relation to Subscriber:Self Name:Ariadna Paniagua Payer ID:[id number] (NAIC) Group ID:[id number] Type:Medicaid Address: [place] [id number] Care Teams Laser Beam Cutter Relationship Specialty Start Date End Date Manuel Klein MD PCP - General Family Medicine 02/27/22 Manuel Klein MD Referring Family Medicine 02/12/22 Manuel Klein MD [address] [place] [address] Referring Family Medicine 07/06/24
--- OUTSIDE RECORDS SUMMARY | 2025-02-26 17:56 | XMS_ITS | Encounter Summary ---
Author Organization [facility] Address [address] [place] [address] Care Team Providers Care Echo Technician Name Role Phone Manuel Klein MD Unavailable [phone] Manuel Klein MD Primary Care Provider +[phone] Manuel Klein MD Unavailable [phone] Source Comments In the event this information is protected by the Federal Confidentiality of Alcohol and Drug AbusePatient Records regulations: The Federal rules restrict any use of the information to criminally investigate or prosecute any alcohol or drug abuse patient.[facility] Encounter Details Date Type Department Care Team (Late st Contact Info) Description 07/09/2022 Get [facility] [address] [place] [address] Christie Phan MD [address] [place] [address] Cymbalta Social History Tobacco Use [...] N ot on file 08/09/2020 Data from: https://www.[email or web address].medicine.[email or web address]/. Last address used for calculation Not on [...] [facility] Hematology/Oncology [address] [place] [address] BENLYSTA - 03/21/2025 9:00 AM EDT Office Visit [facility] Laboratory [address] [place] [address] [place] [address] 4 week follow up IVIG - pt to see MASON for this appt per [facility] 03/21/2025 9:20 AM EDT Visit (SP) Office Hematology/Oncology [address] [place] [address] Jose Cho MD [address] [place] [address] 4 week follow up IVIG - pt to see MASON for this appt per [facility] 03/21/2025 9:40 AM EDT Infusion Center Hematology/Oncology [address] [place] [address] Gabbi, Chair [address] [place] [address] 4 week follow up IVIG - pt to see MASON for this appt per [facility] 04/05/2025 2:00 PM EST Infusion Center Hematology/Oncology [address] [place] [address] BENLYSTA - 05/03/2025 2:00 PM EST Infusion Center Hematology/Oncology [address] [place] [address] BENLYSTA - documented as of this encounter Visit Diagnoses Not on filedocumented in this encounter Care Teams Echo Technician Relationship Specialty Start Date End Date Manuel Klein MD PCP - General Family Medicine 02/27/22 Manuel Klein MD Referring Family Medicine 02/12/22 Manuel Klein MD [address] [place] [address] Referring Family Medicine 07/06/24 documented as of this encounter
--- OUTSIDE RECORDS SUMMARY | 2025-02-26 17:56 | XMS_ITS | Encounter Summary ---
Author Organization [facility] Address [address] [facility] [place] [address] Care Team Providers Care Technical Adjuster Name Role Phone Gay De La Torre MD Unavailable [phone] Encounter Details Date Type Department Care Team (Late st Contact Info) Description 01/30/2025 Results Follow-Up [facility] [address] [place] [address] Sabi Barker LPN [address] [id number] Left breast US limited Social History Tobacco [...] Consult [facility] [address] [facility] [address] [place] [phone] Terence Blum MD 703 [facility] [address] [place] [address] 03/19/2025 10:20 AM EDT Office Visit [facility] [address] [place] [address] Mary Grace Mejias MD 112 [facility] 130 [place] [address] 07/25/2025 11:00 AM EST Office Visit [facility] [address] [place] [address] Cynthia English MD [address] [place] [address] documented as of this encounter Visit Diagnoses Not on filedocumented in this encounter Care Teams Technical Adjuster Relationship Specialty Start Date End Date Gay De La Torre MD [address] [place] [address] Referring Physician Family Medicine 07/18/24 documented as of this encounter
--- OUTSIDE RECORDS SUMMARY | 2025-02-26 17:56 | XMS_ITS | Encounter Summary ---
Author Organization [facility] Address [address] [place] [address] Care Team Providers Care Software Test Manager Name Role Phone Manuel Klein MD Unavailable Manuel Klein MD Primary Care Provider +-4 Manuel Klein MD Unavailable [phone] Source Comments In the event this information is protected by the Federal Confidentiality of Alcohol and Drug AbusePatient Records regulations: The Federal rules restrict any use of the information to criminally investigate or prosecute any alcohol or drug abuse patient.[facility] Encounter Details Date Type Department Care Team (Late st Contact Info) Description 01/26/2024 [place] [address] Provider, Ccf Important changes to Wellness RX [...] is lower risk 4 09/24/2022 Data from: https://www.neighborhoodatlas.[facility]/. Last address used for calculation [address] [facility] 09/24/2022 Comments No Sex and Gender [...] EDT [facility] [address] [place] [address] BENLYSTA - 03/21/2025 9:00 AM EDT Office Visit [facility] [place] [address] 4 week follow up IVIG - pt to see MASON for this appt per Fara 03/21/2025 9:20 AM EDT Visit (SP) Office Hematology/Oncology [facility] [place] [address] Jose Cho MD [address] [place] [address] 4 week follow up IVIG - pt to see MASON for this appt per Fara 03/21/2025 9:40 AM EDT [facility]fusion [facility] Hematology/Oncology [address] [facility] [place] [address] Gabbi, Chair [address] [facility] [place] [address] 4 week follow up IVIG - pt to see MASON for this appt per Fara 04/05/2025 2:00 PM EST Infusion Center Hematology/Oncology [address] [facility] [place] [address] BENLYSTA - 05/03/2025 2:00 PM [facility] Infusion Center Hematology/Oncology [address] [place] [address] BENLYSTA - documented as of this encounter Visit Diagnoses Not on filedocumented in this encounter Care Teams Software Test Manager Relationship Specialty Start Date End Date Manuel Klein MD PCP - General Family Medicine 02/27/22 Manuel Klein MD Referring Family Medicine 02/12/22 Manuel Klein MD [address] [facility] [place] [address] Referring Family Medicine 07/06/24 documented as of this encounter
--- OUTSIDE RECORDS SUMMARY | 2025-02-26 17:56 | XMS_ITS | Encounter Summary ---
Author Organization [facility] Address [address] [place] [address] Care Team Providers Care Dust Box Tender Name Role Phone Manuel Klein MD Unavailable [phone] Manuel Klein MD Primary Care Provider +-4 Manuel Klein MD Unavailable [phone] Source Comments In the event this information is protected by the Federal Confidentiality of Alcohol and Drug AbusePatient Records regulations: The Federal rules restrict any use of the information to criminally investigate or prosecute any alcohol or drug abuse patient.[facility] Encounter Details Date Type Department Care Team (Late st Contact Info) Description 12/09/2023 Get Medical Advice Infectious Disease [address] [place] [address] Tiffany Head DO [address] [place] [address] Infection Social History Tobacco Use [...] Data from: https://www.neighborhoodatlas.medicine.[facility]/. Last address used for calculation [address] 09/24/2022 Comments No Sex and Gender [...] Contact Info) Description 03/08/2025 2:[address] [facility] Hematology/Oncology [facility] [place] [address] BENLYSTA - 03/21/2025 9:00 AM EDT Office Visit [facility] Laboratory [facility] [place] [address] 4 week follow up IVIG - pt to see MASON for this appt per [facility] 03/21/2025 9:20 AM EDT Visit (SP) Office Hematology/Oncology [address] [place] [address] Jose Cho MD [address] [place] [address] 4 week follow up IVIG - pt to see MASON for this appt per [facility] 03/21/2025 9:40 AM EDT Infusion Center Hematology/Oncology [address] [place] [address] Gabbi, Chair [address] [place] [address] 4 week follow up IVIG - pt to see MASON for this appt per [facility] 04/05/2025 2:00 PM EST Infusion Center Hematology/Oncology [address] [place] [address] BENLYSTA - 05/03/2025 2:00 PM EST Infusion Center Hematology/Oncology [address] [place] [address] BENLYSTA - documented as of this encounter Visit Diagnoses Not on filedocumented in this encounter Care Teams Dust Box Tender Relationship Specialty Start Date End Date Manuel Klein MD PCP - General Family Medicine 02/27/22 Manuel Klein MD Referring Family Medicine 02/12/22 Manuel Klein MD [address] [place] [address] Referring Family Medicine 07/06/24 documented as of this encounter
--- OUTSIDE RECORDS SUMMARY | 2025-02-26 17:56 | XMS_ITS | Encounter Summary ---
Author Organization [facility] Address [address] [place] [address] Care Team Providers Care Supervisor Nurse Name Role Phone House, Charles Culver MD Primary Care Provider [phone] Gay De La Torre MD Unavailable [phone] Encounter Details Date Type Department Care Team (Late Contact Info) Description 10/19/2022 Abstract [facility] [address] [facility] [address] [place] [phone] Cynthia English MD [address] [place] [facility] 350 [place] [address] Social History Tobacco Use Types Packs/Day Years [...] AM EDT Consult [facility] [address] [facility] 150 [place] [phone] Terence Blum MD 703 [facility] 150 [place] [address] 03/19/2025 10:20 AM EDT Office Visit [facility] [address] [place] [address] Mary Grace Mejias MD 112 [facility] [address] [place] [address] 07/25/2025 11:00 AM EST Office Visit [facility] [address] [place] [address] Cynthia English MD [address] [place] [address] documented as of this encounter Visit Diagnoses Not on filedocumented in this encounter Care Teams Supervisor Nurse Relationship Specialty Start Date End Date Charles Nicole MD PCP - General Family Medicine 02/09/24 07/17/24 Gay De La Torre MD [address] [place] [address] Referring Physician Family Medicine 07/18/24 documented as of this encounter
--- OUTSIDE RECORDS SUMMARY | 2025-02-26 17:56 | XMS_ITS | Clinical Summary ---
Author Organization [facility] Address [id number] [address] [place] [address] Care Team Providers Care Sample Maker Name Role Phone Unavailable Primary Care Provider [...]
--- OUTSIDE RECORDS SUMMARY | 2025-02-26 17:56 | XMS_ITS | Encounter Summary ---
Author Organization [facility] Address [address] [facility] [place] [address] Care Team Providers Care Registered Appraiser Name Role Phone Gay De La Torre MD Unavailable [phone] Encounter Details Date Type Department Care [...] AM EDT Consult [facility] [address] [address] Terence Blum MD 703 [facility] 150 [place] [address] 03/19/2025 10:20 AM EDT Office Visit [facility] [address] [facility] 900 [place] [address] Mary Grace Mejias MD 112 [facility] [address] [place] [address] 07/25/2025 11:00 AM EST Office Visit [facility] [address] [place] [address] Cynthia English MD [address] [place] [address] documented as of this encounter Visit Diagnoses Not on filedocumented in this encounter Care Teams Registered Appraiser Relationship Specialty Start Date End Date Gay De La Torre MD [address] [place] [address] Referring Physician Family Medicine 07/18/24 documented as of this encounter
--- OUTSIDE RECORDS SUMMARY | 2025-02-26 17:56 | XMS_ITS | Encounter Summary ---
Author Organization [facility] Address [address] [place] [address] Phone Care Team Providers Care Aircraft Hydraulic Equipment Mechanic Name Role Phone MitaliMichelle LOOM FIXER-DRIP PUMPER Unavailable [phone] Kenneth Patel MD Unavailable [phone] Gay De La Torre LOOM FIXER-DRIP PUMPER Primary Care Provider Encounter Details Date Type Department Care Team (Late st Contact Info) Description 12/11/2023 Scanned Document [facility] [address] [place] [place] [id number] Scanning, Generic Provider Social History Tobacco Use [...] Description 07/26/2025 11:00 AM EST Office Visit [facility] [address] [facility] [address] [place] [address] Lois Arguelles MD [address] [place] [address] documented as of this encounter [...] documented as of this encounter Care Teams Aircraft Hydraulic Equipment Mechanic Relationship Specialty Start Date End Date Gay De La Torre, LOOM FIXER-DRIP PUMPER [address] [place] [address] PCP - General 07/13/23 Michelle Jasmine APRN-DRIP PUMPER Nurse Practitioner Cardiology 06/08/23 Kenneth Patel MD Consulting Physician Cardiology 06/23/23 documented as of this encounter
--- OUTSIDE RECORDS SUMMARY | 2025-02-26 17:56 | XMS_ITS | Encounter Summary ---
Author Organization [facility] Address [address] [place] [address] Care Team Providers Care Timber Hand Name Role Phone Manuel Klein MD Unavailable [phone] Manuel Klein MD Primary Care Provider +-4 Manuel Klein MD Unavailable [phone] Source Comments In the event this [...] Patient Msg [facility] [address] [place] [address] Provider, Ccf Video Visit Social [...] N ot on file 08/09/2020 Data from: https://www.neighborhoodatlas.medicine.[facility]/. Last address used for calculation [...] Contact Info) Description 03/08/2025 2:00 PM EDT [facility] Hematology/Oncology [address] [facility] [place] [address] BENLYSTA - 03/21/2025 9:00 AM EDT Office Visit [facility] [address] [facility] [place] [address] 4 week follow up IVIG - pt to see MASON for this appt per Fara 03/21/2025 9:20 AM EDT Visit (SP) Office Hematology/Oncology [address] [place] [address] Jose Cho MD [address] [place] [address] 4 week follow up IVIG - pt to see MASON for this appt per Fara 03/21/2025 9:40 AM EDT Infusion Center Hematology/Oncology [address] [place] [address] Gabbi, Chair [address] [place] [address] 4 week follow up IVIG - pt to see MASON for this appt per Fara 04/05/2025 2:00 PM EST Infusion Center Hematology/Oncology [address] [place] [address] [place] [address] BENLYSTA - 05/03/2025 2:00 PM [facility] Infusion Center Hematology/Oncology [address] [place] [address] [place] [address] BENLYSTA - documented as of this encounter Visit Diagnoses Not on filedocumented in this encounter Care Teams Timber Hand Relationship Specialty Start Date End Date Manuel Klein MD PCP - General Family Medicine 02/27/22 Manuel Klein MD Referring Family Medicine 02/12/22 Manuel Klein MD [address] [place] [address] Referring Family Medicine 07/06/24 documented as of this encounter
--- OUTSIDE RECORDS SUMMARY | 2025-02-26 17:57 | XMS_ITS | Encounter Summary ---
Author Organization [facility] Address [address] [place] [address] Care Team Providers Care Solar Mechanical Engineer Name Role Phone Manuel Klein MD Unavailable [phone] Manuel Klein MD Primary Care Provider +-4 Manuel Klein MD Unavailable [phone] Source Comments In the event this information is protected by the Federal Confidentiality of Alcohol and Drug AbusePatient Records regulations: The Federal rules restrict any use of the information to criminally investigate or prosecute any alcohol or drug abuse patient.[facility] Reason for Visit * Reason Comments Lab Orders Encounter Details Date Type Department Care Team (Late st Contact Info) Description 02/12/2025 Telephone Hematology/Oncology [address] [place] [address] [place] [address] Enma Hamm, extrusion utility worker Orders Social History Tobacco Use Types Packs/Day [...] is lower risk 4 09/24/2022 Data from: https://www.neighborhoodatlas.medicine.[facility]/. Last address used for calculation [address] 09/24/2022 Comments No Sex and Gender [...] Info) Description 03/08/2025 2:00 PM EDT [facility] Hematology/Oncology [address] [place] [address] [place] [address] BENLYSTA - 03/21/2025 9:00 AM EDT Office Visit [facility] [address] [place] [address] 4 week follow up IVIG - pt to see MASON for this appt per Fara 03/21/2025 9:20 AM EDT Visit (SP) Office Hematology/Oncology [address] [place] [address] Jose Cho MD [address] [place] [address] 4 week follow up IVIG - pt to see MASON for this appt per Fara 03/21/2025 9:40 AM EDT Infusion Center Hematology/Oncology [address] [place] [address] Gabbi, Chair 4 [address] [place] [address] 4 week follow up IVIG - pt to see MASON for this appt per Fara 04/05/2025 2:00 PM EST Infusion Center Hematology/Oncology [address] [place] [address] BENLYSTA - 05/03/2025 2:00 PM [facility] Infusion Center Hematology/Oncology [address] [place] [address] BENLYSTA - documented as of this encounter [...] 02/21/2025 8:51 AM EDT us Fara Lopez DATABASES SOFTWARE CONSULTANT.[facility] Final Resul t [facility] [address] [place] [id number], [place] * FOLATE, SERUM (02/21/2025 8:51 AM [...] III (Folate III) [package insert V 1.0 Thai]. [facility], [place], [place]: March 2015. Blood BLOOD SPECIMEN / Unknown Venipuncture / Unknown 02/21/2025 8:51 AM EDT 02/21/2025 8:51 AM EDT us Fara Lopez DATABASES SOFTWARE CONSULTANT.[facility] Final Resul t Performing Organization Address City/[facility]/ZIP Co de Phone Number [facility] [address] [place] [id number], [place] * VITAMIN B12 (02/21/2025 8:51 AM EDT) Vitamin B12 694 232 - 1,245 pg/mL 02/21/2025 10:05 PM EDT [facility] Blood BLOOD SPECIMEN / Unknown Venipuncture / Unknown 02/21/2025 8:51 AM EDT 02/21/2025 8:51 AM EDT us Fara Lopez DATABASES SOFTWARE CONSULTANT.[facility] Final Resul t [facility] [address] [place] [id number], [place] * FERRITIN (02/21/2025 8:51 AM EDT) Ferritin 83.6 14.7 - 205.1 ng/mL 02/21/2025 10:05 PM EDT [facility] Blood BLOOD SPECIMEN / Unknown Venipuncture / Unknown 02/21/2025 8:51 AM EDT 02/21/2025 8:51 AM EDT Fara Lopez DATABASES SOFTWARE CONSULTANT.[facility] Final Resul t Performing Organization Address City/[facility] Co de Phone Number [facility] [address] [place] [address], [place] * (ABNORMAL) IRON AND TIBC (02/21/2025 [...] EDT 02/21/2025 8:51 AM EDT Fara Lopez APRN.[facility] Final Resul t Performing Organization Address City/[facility]/ZIP Co de Phone Number [facility] [address] [place] [address], [place] * (ABNORMAL) COMPREHENSIVE METABOLIC PANEL (02/21/2025 8:51 AM EDT) Protein, Total 7.6 6.3 - 8.0 g/dL 02/21/2025 9:45 AM EDT [facility] Albumin 4.3 3.9 - 4.9 g/dL 02/21/2025 9:45 AM EDT [facility] Calcium, Total 10.2 8.5 - 10.2 mg/dL 02/21/2025 9:45 AM [facility] Bilirubin, Total 0.3 0.2 - 1.3 mg/dL 02/21/2025 9:45 AM [facility] Alkaline Phosphatase 83 34 - 123 U/L 02/21/2025 9:45 AM [facility] AST 20 13 - 35 U/L 02/21/2025 9:45 AM [facility] ALT 49(H) 7 - 38 U/L 02/21/2025 9:45 AM [facility] Glucose 248(H) 74 - 99 mg/dL 02/21/2025 9:45 AM [facility] Comment: The [place] Diabetes Association (ADA) provides guidance for cutoff [...] Standards of Medical Care in Diabetes 2016, [place] Diabetes Association. Diabetes Care. 2016.39(Suppl 1). BUN 16 7 - 21 mg/dL 02/21/2025 9:45 AM [facility] Creatinine 0.49(L) 0.58 - 0.96 mg/dL 02/21/2025 9:45 AM [facility] Sodium 138 136 - 144 mmol/L 02/21/2025 9:45 AM [facility] Potassium 4.1 3.7 - 5.1 mmol/L 02/21/2025 9:45 AM [facility] Chloride 101 98 - 107 mmol/L 02/21/2025 9:45 AM [facility] CO2 20(L) 22 - 30 mmol/L 02/21/2025 9:45 AM EDT [facility] Anion Gap 17(H) 8 - 15 mmol/L 02/21/2025 9:45 AM EDT [facility] Estimated Glomerular Filtration Rate 119 >=60 mL/min/1. 73m 02/21/2025 9:45 AM EDT [facility] Comment:Estimated Glomerular Filtration Rate (eGFR) is [...] 02/21/2025 8:51 AM EDT us Fara Lopez DATABASES SOFTWARE CONSULTANT.[facility] Final Resul t [facility] [address] [place] [address] * (ABNORMAL) COMPLETE BLOOD COUNT AND DIFFERENTIAL (02/21/2025 8:51 AM EDT) WBC 13.16(H) 3.70 - 11.00 k/uL 02/21/2025 8:59 AM EDT [facility] RBC 4.77 3.90 - 5.20 m/uL 02/21/2025 8:59 AM EDT [facility] Hemoglobin 15.1 11.5 - 15.5 g/dL 02/21/2025 8:59 AM EDT [facility] Hematocrit 46.0 36.0 - 46.0 % 02/21/2025 8:59 AM EDT [facility] MCV 96.4 80.0 - 100.0 fL 02/21/2025 8:59 AM EDT [facility] MCH 31.7 26.0 - 34.0 pg 02/21/2025 8:59 AM EDT [facility] MCHC 32.8 30.5 - 36.0 g/dL 02/21/2025 8:59 AM EDT [facility] RDW-CV 14.3 11.5 - 15.0 % 02/21/2025 8:59 AM EDT [facility] Platelet Count 305 150 - 400 k/uL 02/21/2025 8:59 AM EDT [facility] MPV 9.9 9.0 - 12.7 fL 02/21/2025 8:59 AM EDT [facility] Neutrophils % 75.5 % 02/21/2025 8:59 AM EDT [facility] Abs Neut 9.94(H) 1.45 - 7.50 k/uL 02/21/2025 8:59 AM EDT [facility] Lymphocytes % 14.4 % 02/21/2025 8:59 AM EDT [facility] Abs Lymph 1.89 1.00 - 4.00 k/uL 02/21/2025 8:59 AM EDT [facility] Monocytes % 7.0 % 02/21/2025 8:59 AM EDT [facility] Abs Roseau 0.92(H) <0.87 k/uL 02/21/2025 8:59 AM EDT [facility] Eosinophils % 0.8 % 02/21/2025 8:59 AM EDT [facility] Abs Eosin 0.11 <0.46 k/uL 02/21/2025 8:59 AM EDT [facility] Basophils % 0.7 % 02/21/2025 8:59 AM EDT [facility] Abs Baso 0.09 <0.11 k/uL 02/21/2025 8:59 AM EDT [facility] Immature Granulocytes % 1.6 % 02/21/2025 8:59 AM EDT [facility] Abs Immature Gran 0.21(H) <0.10 k/uL 02/21/2025 8:59 AM EDT [facility] NRBC 0.0 /100 WBC 02/21/2025 8:59 AM EDT [facility] Absolute nRBC <0.01 <0.01 k/uL 02/21/2025 8:59 AM EDT [facility] Diff Type Auto 02/21/2025 8:59 AM EDT [facility] Blood BLOOD SPECIMEN / Unknown Venipuncture / Unknown 02/21/2025 8:51 AM EDT 02/21/2025 8:51 AM EDT us Fara Lopez DATABASES SOFTWARE CONSULTANT.[facility] Final Resul t [facility] [address] [place] [address] documented in this encounter Visit Diagnoses Diagnosis Hypogammaglobulinemia (HCC)- Primary Hypogammaglobulinaemia, unspecified Vitamin B12 deficiency Other B-complex deficiencies Other iron deficiency anemia documented in this encounter Care Teams Solar Mechanical Engineer Relationship Specialty Start Date End Date Manuel Klein MD PCP - General Family Medicine 02/27/22 Manuel Klein MD Referring Family Medicine 02/12/22 Manuel Klein MD [address] [place] [address] Referring Family Medicine 07/06/24 documented as of this encounter
--- OUTSIDE RECORDS SUMMARY | 2025-02-26 17:57 | XMS_ITS | Encounter Summary ---
Author Organization [facility] Address [address] [place] [address] Care Team Providers Care Beveling And Edging Machine Operator Name Role Phone Manuel Klein MD Unavailable [phone] Manuel Klein MD Primary Care Provider +-4 Manuel Klein MD Unavailable [phone] Source Comments In the event this information is protected by the Federal Confidentiality of Alcohol and Drug AbusePatient Records regulations: The Federal rules restrict any use of the information to criminally investigate or prosecute any alcohol or drug abuse patient.[facility] Encounter Details Date Type Department Care Team (Late st Contact Info) Description 02/21/2025 Get Medical Advice Hematology/Oncology [address] [place] [address] [place] [address] Provider, Ccf Blood work Social History Tobacco [...] risk 4 09/24/2022 Data from: https://www.neighborhoodatlas.medicine.[facility]/. Last address used for calculation [address] 09/24/2022 Comments No Sex and Gender [...] EDT [facility] Hematology/Oncology [address] [place] [address] BENLYSTA - 03/21/2025 9:00 AM EDT Office Visit [facility] [address] [place] [address] 4 week follow up IVIG - pt to see MASON for this appt per Fara 03/21/2025 9:20 AM EDT Visit (SP) Office Hematology/Oncology [address] [place] [address] Jose Cho MD [address] [place] [address] 4 week follow up IVIG - pt to see MASON for this appt per Fara 03/21/2025 9:40 AM EDT Infusion Center Hematology/Oncology [address] [place] [address] Gabbi, Chair [address] [place] [address] 4 week follow up IVIG - pt to see MASON for this appt per Fara 04/05/2025 2:00 PM EST Infusion Center Hematology/Oncology [address] [place] [address] [place] [address] BENLYSTA - 05/03/2025 2:00 PM [facility] Infusion Center Hematology/Oncology [address] [place] [address] [place] [address] BENLYSTA - documented as of this encounter Visit Diagnoses Not on filedocumented in this encounter Care Teams Beveling And Edging Machine Operator Relationship Specialty Start Date End Date Manuel Klein MD PCP - General Family Medicine 02/27/22 Manuel Klein MD Referring Family Medicine 02/12/22 Manuel Klein MD [address] [place] [address] Referring Family Medicine 07/06/24 documented as of this encounter
--- OUTSIDE RECORDS SUMMARY | 2025-02-26 17:57 | XMS_ITS | Encounter Summary ---
Author Organization [facility] Address [address] [place] [address] Care Team Providers Care Licensed Psychiatric Technician Name Role Phone Manuel Klein MD Unavailable [phone] Manuel Klein MD Primary Care Provider +-4 Manuel Klein MD Unavailable [phone] Source Comments In the event this information is protected by the Federal Confidentiality of Alcohol and Drug AbusePatient Records regulations: The Federal rules restrict any use of the information to criminally investigate or prosecute any alcohol or drug abuse patient.[facility] Reason for Visit * Reason Onset Date Comments Refill Request 01/23/2025 Encounter Details Date Type Department Care Team (Late st Contact Info) Description 01/23/2025 Refill Rheumatology [address] [place], [place] [id number] Sandra Park MD [address] [place] [address] Refill Request Social History Tobacco [...] 4 09/24/2022 Data from: https://www.neighborhoodatlas.medicine.[facility]/. Last address used for calculation [address] 09/24/2022 Comments No Sex and Gender [...] Info) Description 03/08/2025 2:00 PM EDT [facility] Hematology/Oncology [address] [place] [address] BENLYSTA - 03/21/2025 9:00 AM EDT Office Visit [facility] [address] [place] [address] 4 week follow up IVIG - pt to see MASON for this appt per [facility] 03/21/2025 9:20 AM EDT Visit (SP) Office Hematology/Oncology [address] [place] [address] Jose Cho MD [address] [place] [address] 4 week follow up IVIG - pt to see MASON for this appt per [facility] 03/21/2025 9:40 AM EDT Infusion Center Hematology/Oncology [address] [facility] [facility] [place] [address] Gabbi, Chair [address] [place] [address] 4 week follow up IVIG - pt to see MASON for this appt per [facility] 04/05/2025 2:00 PM EST Infusion Center Hematology/Oncology [address] [place] [address] BENLYSTA - 05/03/2025 2:00 PM [facility] Infusion Center Hematology/Oncology [address] [place] [address] BENLYSTA - documented as of this encounter Visit Diagnoses Diagnosis CHRISTIAN positive Other and unspecified nonspecific immunological findings Other systemic lupus erythematosus with other organ involvement (HCC) documented in this encounter Care Teams Licensed Psychiatric Technician Relationship Specialty Start Date End Date Manuel Klein MD PCP - General Family Medicine 02/27/22 Manuel Klein MD Referring Family Medicine 02/12/22 Manuel Klein MD [address] [place] [address] Referring Family Medicine 07/06/24 documented as of this encounter
--- OUTSIDE RECORDS SUMMARY | 2025-02-26 17:57 | XMS_ITS | Encounter Summary ---
Author Organization [facility] Address [address] [place] [address] Care Team Providers Care Psychologist Clinical Name Role Phone Aime Davidson MD, Lui Nunez Primary Care Provid er Gay De La Torre(Historical) SPECIAL WARFARE BOAT OPERATOR.CHIEF DESIGN BRANCH Primary Care Provider Unavailable Manuel Klein MD Unavailable [phone] Manuel Klein MD Primary Care Provider [phone] Manuel Klein MD Unavailable [phone] Source Comments In the event this information is protected by the Federal Confidentiality of Alcohol and Drug AbusePatient Records regulations: The Federal rules restrict any use of the information to criminally investigate or prosecute any alcohol or drug abuse patient.[facility] Encounter Details Date Type Department Care Team (Late st Contact Info) Description 12/25/2014 Get Medical Advice Internal Medicine [facility] [place] [address] Lui Salomon Jr., MD [address] [address] Test Result Question Social History [...] [facility]Oncology [address] [place] [address] BENLYSTA - 03/21/2025 9:00 AM EDT Office Visit [facility] [place] [address] 4 week follow up IVIG - pt to see MASON for this appt per Fara 03/21/2025 9:20 AM EDT Visit (SP) Office Hematology/Oncology [facility] [place] [address] Jose Cho MD [address] [place] [address] 4 week follow up IVIG - pt to see MASON for this appt per Fara 03/21/2025 9:40 AM EDT Infusion Center Hematology/Oncology [address] [place] [address] Gabbi, Chair [address] [place] [address] 4 week follow up IVIG - pt to see MASON for this appt per Fara 04/05/2025 2:00 PM EST Infusion Center Hematology/Oncology [address] [facility] [place] [address] BENLYSTA - 05/03/2025 2:00 PM EST Infusion Center Hematology/Oncology [address] [place] [address] BENLYSTA - documented as of this encounter Visit Diagnoses Not on filedocumented in this encounter Care Teams Psychologist Clinical Relationship Specialty Start Date End Date Lui Salomon Jr., MD PCP - General Internal Medicine 05/31/14 07/08/20 Gay De La Torre(Historical), SPECIAL WARFARE BOAT OPERATOR.CHIEF DESIGN BRANCH PCP - General Family Medicine 10/24/21 02/26/22 Manuel Klein MD PCP - General Family Medicine 02/27/22 Manuel Klein MD Referring Family Medicine 02/12/22 Manuel Klein MD [address] [place] [address] Referring Family Medicine 07/06/24 documented as of this encounter
--- OUTSIDE RECORDS SUMMARY | 2025-02-26 17:57 | XMS_ITS | Encounter Summary ---
Author Organization [facility] Address [address] [place] [address] Care Team Providers Care Outsole Rounder Name Role Phone Manuel Klein MD Unavailable [phone] Manuel Klein MD Primary Care Provider +-4 Manuel Klein MD Unavailable [phone] Source Comments In the event this information is protected by the Federal Confidentiality of Alcohol and Drug AbusePatient Records regulations: The Federal rules restrict any use of the information to criminally investigate or prosecute any alcohol or drug abuse patient.[facility] Reason for Visit * Reason Comments Results Encounter Details Date Type Department Care Team (Late st Contact Info) Description 02/21/2025 Telephone Cancer Appts [facility] [place] [address] Fara Lopez APRN.[facility] [address] [place] [address] Results Social History Tobacco Use Types Packs/Day [...] Data from: https://www.neighborhoodatlas.medicine.[facility]/. Last address used for calculation [address] 09/24/2022 Comments No Sex and Gender [...] AM EDT Pt aware of results via [employer]. Questions asked in [employer] encounter, response sent by Fara. RTC with Mason, 4 weeks Enma Hamm RN * Telephone Encounter - Sherrie Cortes - 02/21/2025 11:55 AM EDT Images from the original note were not included. documented in this encounter Plan of Treatment Upcoming Encounters Date Type Department Care Team (Latest Contact Info) Description 03/08/2025 2:00 PM EDT Infusion Center Hematology/Oncology [address] [place] [address] BENLYSTA - 03/21/2025 9:00 AM EDT Office Visit [facility] Laboratory [address] [place] [address] 4 week follow up IVIG - pt to see MASON for this appt per Fara 03/21/2025 9:20 AM EDT Visit (SP) Office Hematology/Oncology [address] [place] [address] Jose Cho MD [address] [place] [address] 4 week follow up IVIG - pt to see MASON for this appt per Fara 03/21/2025 9:40 AM EDT Infusion Center Hematology/Oncology [address] [place] [address] Gabbi, Chair [address] [place] [address] 4 week follow up IVIG - pt to see MASON for this appt per Fara 04/05/2025 2:00 PM EST Infusion Center Hematology/Oncology [address] [place] [address] BENLYSTA - 05/03/2025 2:00 PM [facility] Infusion Center Hematology/Oncology [address] [place] [address] BENLYSTA - documented as of this encounter Visit Diagnoses Not on filedocumented in this encounter Care Teams Outsole Rounder Relationship Specialty Start Date End Date Manuel Klein MD PCP - General Family Medicine 02/27/22 Manuel Klein MD Referring Family Medicine 02/12/22 Manuel Klein MD [address] [place] [address] Referring Family Medicine 07/06/24 documented as of this encounter
--- OUTSIDE RECORDS SUMMARY | 2025-02-26 17:57 | XMS_ITS | Encounter Summary ---
Author Organization [facility] Address [address] [facility] [place] [address] Care Team Providers Care Bullet Assembly Press Operator Name Role Phone House, Charles Culver MD Primary Care Provider Gay De La Torre MD Unavailable [phone] Encounter Details Date Type Department Care Team (Late Contact Info) Description 06/20/2024 Orders Only [facility] [address] [employer] [address] [address] Sabi Barker LPN [address] [place] [id number] Social History Tobacco Use Types Packs/Day Years [...] AM EDT Consult [facility] [address] [id number] Terence Blum MD [address] [facility] [address] [place] [address] 03/19/2025 10:20 AM EDT Office Visit [facility] [address] [place] [address] Mary Grace Mejias MD [address] [facility] [address] [place] [address] 07/25/2025 11:00 AM EST Office Visit [facility] [address] [place] [address] Cynthia English MD [address] [place] [address] documented as of this encounter Procedures Procedure Name Priority Date/Time Associated Diagnosis Comments PAP SMEAR Routine 06/06/2024 12:00 AM EST documented in this encounter Results * Pap Smear (06/06/2024 12:00 AM EST) Swab Cervical swab / Unknown [facility] ORDERABLES Final Re sult EXTERNAL LAB documented in this encounter Visit Diagnoses Not on filedocumented in this encounter Care Teams Bullet Assembly Press Operator Relationship Specialty Start Date End Date Charles Nicole MD PCP - General Family Medicine 02/09/24 07/17/24 Gay De La Torre MD [facility] [place] [address] Referring Physician Family Medicine 07/18/24 documented as of this encounter
--- OUTSIDE RECORDS SUMMARY | 2025-02-26 17:57 | XMS_ITS | Clinical Summary ---
Author Organization [facility] Address [address] [place] [address] Care Team Providers Care Claim Administrator Name Role Phone Gay De La Torre CNP Primary Care Provider [phone] Social History Tobacco Use Types Packs/Day Years [...] age to complete this topic Care Teams Claim Administrator Relationship Specialty Start Date End Date Gay De La Torre CNP [address] [place] [address] PCP - General Nurse Practitioner - Family 03/27/24
--- OUTSIDE RECORDS SUMMARY | 2025-02-26 17:57 | XMS_ITS | Clinical Summary ---
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 02/04 Steroid-induced [...] Dermatology [address] [place] [address] Cynthia English MD Pilonidal cyst (Primary Dx); Hidradenitis suppurativa 02/14/2025 Bamboo flowsheet [facility] [address] [place] [address] Cynthia English MD 02/14/2025 Travel 01/30/2025 Results Follow-Up [facility] [address] [facility] [place] [address] Sabi Barker LPN Left breast US limited 01/26/2025 11:45 AM EDT Ancillary Procedure [facility] [address] [place] [address] Other benign mammary dysplasias of left breast 01/26/2025 Travel 12/07/2024 Refill [facility] [address] [place] [address] Андрей Hearn, Eustachian tube dysfunction, bilateral; Non-recurrent acute serous otitis media of both ears 12/01/2024 Telephone [facility] [address] [facility] [place] [address] Oly Plascencia PA 11/28/2024 Telephone [facility] [...] [facility] [address] [facility] [address] [place] [address] Terence Blum MD [address] [facility] [address] [place] [address] 03/19/2025 10:20 AM EDT Office Visit [facility] [address] [facility] [address] [place] [address] Mary Grace Mejias MD [address] [facility] [address] [place] [address] 07/25/2025 11:00 AM EST Office Visit [facility] [address] [place] [address] Cynthia English MD [address] [place] [address] Health Maintenance Due Date Last [...] EST Narrative 04/07/2024 8:41 [place] [address] Mammography Report Signed Patient: JONES PANIAGUA MR#: [id number] : 1980 Acct:[id number] Age/Sex: 43 / F ADM Date: 04/06/24 Loc: US Attending Dr: Luan Valdivia D.O. Ordering Physician: Luan Valdivia D.O. Results: Date of Service: 04/06/24 Follow Up: Procedure(s): MM tomosynthesis diagnostic BI Accession Number(s): [id number] cc: GAY ENCISO ; Luan Valdivia D.O. Patient Name: JONES PANIAGUA MR#: [id number] : 1980 Exam Date: 04/06/2024 Ordering Doctor: [...] stomach cancer at age 56. LOCATION: [facility] BREAST COMPOSITION: There are scattered [...] M.D. Signed By: 04/07/2441 DD/ 9 TD/TT: Plating Stripper: Procedure Note Radiology, Radiologist, MD - 04/07/2024 [place] [address] Mammography Report Signed Patient: JONES PANIAGUA BMR#: [id number] : 1980Acct:[id number] Age/Sex: 43 / FADM Date: 04/06/24 Loc: US Attending Dr: Luan Valdivia D.O. Ordering Physician: Luan Valdivia D.O.Results: Date of Service: 04/06/24Follow Up: Procedure(s): MM tomosynthesis diagnostic BI Accession Number(s): [id number] cc: GAY ENCISO ; Luan Valdivia D.O. Patient Name: JONES PANIAGUA MR#: [id number] : 1980 Exam Date: 04/06/2024 Ordering Doctor: DR Luan Valdivia . RADIOLOGY REPORT PROCEDURE: MM TOMOSYNTHESIS DIAGNOSTIC BI, 04/06/2024, 15:20 US BREAST BI LIMITED, 04/06/2024, 15:37 COMPARISON: MM TOMOSYNTHESIS SCREENING BI, 09/23/2023. MG MAMM [id number] MARK CAD, 09/01/2022. MG MAMM SCREEN 3D [...] stomach cancer at age 56. LOCATION: [facility] BREAST COMPOSITION: There are scattered [...] M.D. Signed By:04/07/24 0841 DD/ 0840 TD/TT: Plating Stripper: [facility] Final Result from Last 3 Months or Most Recently Relevant to Health Maintenance Insurance [employer] Care Teams Box Person Relationship Specialty Start Date End Date Gay Enciso MD [address] [place] [address] Referring Physician Family Medicine 07/18/24
--- OUTSIDE RECORDS SUMMARY | 2025-02-26 17:57 | XMS_ITS | Encounter Summary ---
Author Organization [facility] Address [facility] [place] [address] Care Team Providers Care Police Captain Precinct Name Role Phone Manuel Klein MD Unavailable [phone] Manuel Klein MD Primary Care Provider +-4 Manuel Klein MD Unavailable [phone] Source Comments In the event this information is protected by the Federal Confidentiality of Alcohol and Drug AbusePatient Records regulations: The Federal rules restrict any use of the information to criminally investigate or prosecute any alcohol or drug abuse patient.[facility] Encounter Details Date Type Department Care Team (Late st Contact Info) Description 04/10/2023 Patient Msg Integrated Medicine [address] [place] [address] Christie Phan MD [address], [place] [address] Labs Social History Tobacco Use [...] risk 4 09/24/2022 Data from: https://www.neighborhoodatlas.medicine.[facility]/. Last address used for calculation [address] 09/24/2022 Comments No Sex and Gender [...] EDT [facility] Hematology/Oncology [address] [place] [address] BENLYSTA - 03/21/2025 9:00 AM EDT Office Visit [facility] Laboratory [address] [place] [address] [place] [address] 4 week follow up IVIG - pt to see MASON for this appt per [facility] 03/21/2025 9:20 AM EDT Visit (SP) Office Hematology/Oncology [address] [place] [address] Jose Cho MD [address] [place] [address] 4 week follow up IVIG - pt to see MASON for this appt per [facility] 03/21/2025 9:40 AM EDT Infusion Center Hematology/Oncology [address] [place] [address] Gabbi, Chair [address] [place] [address] 4 week follow up IVIG - pt to see MASON for this appt per [facility] 04/05/2025 2:00 PM EST Infusion Center Hematology/Oncology [address] [facility] [place] [address] BENLYSTA - 05/03/2025 2:00 PM [facility] Infusion Center Hematology/Oncology [address] [place] [address] BENLYSTA - documented as of this encounter Visit Diagnoses Not on filedocumented in this encounter Care Teams Police Captain Precinct Relationship Specialty Start Date End Date Manuel Klein MD PCP - General Family Medicine 02/27/22 Manuel Klein MD Referring Family Medicine 02/12/22 Manuel Klein MD [address] [place] [facility] [place] [address] Referring Family Medicine 07/06/24 documented as of this encounter
--- OUTSIDE RECORDS SUMMARY | 2025-02-26 17:57 | XMS_ITS | Encounter Summary ---
Author Organization [facility] Address [address] [place] [address] Care Team Providers Care Concept Artist Name Role Phone Manuel Klein MD Unavailable [phone] Manuel Klein MD Primary Care Provider +-4 Manuel Klein MD Unavailable [phone] Source Comments In the event this information is protected by the Federal Confidentiality of Alcohol and Drug AbusePatient Records regulations: The Federal rules restrict any use of the information to criminally investigate or prosecute any alcohol or drug abuse patient.[facility] Reason for Visit * Reason Comments Refill Request Encounter Details Date Type Department Care Team (Late st Contact Info) Description 04/26/2024 Refill Rheumatology [address] [place], [place] [phone] Sandra Park MD [address] [place] [address] Refill Request Social History Tobacco [...] lower risk 4 09/24/2022 Data from: https://www.neighborhoodatlas.medicine.[facility]/. Last address used for calculation [address] 09/24/2022 Comments No Sex and Gender [...] Contact Info) Description 03/08/2025 2:00 PM EDT [facility] Hematology/Oncology [address] [place] [address] BENLYSTA - 03/21/2025 9:00 AM EDT Office Visit [facility] [address] [place] [address] [place] [address] 4 week follow up IVIG - pt to see MASON for this appt per [facility] 03/21/2025 9:20 AM EDT Visit (SP) Office Hematology/Oncology [address] [place] [address] Jose Cho MD [address] [place] [address] 4 week follow up IVIG - pt to see MASON for this appt per [facility] 03/21/2025 9:40 AM EDT Infusion Center Hematology/Oncology [address] [place] [address] Gabbi, Chair [address] [place] [address] 4 week follow up IVIG - pt to see MASON for this appt per [facility] 04/05/2025 2:00 PM EST Infusion Center Hematology/Oncology [address] [place] [address] BENLYSTA - 05/03/2025 2:00 PM EST Infusion Center Hematology/Oncology [address] [place] [address] BENLYSTA - documented as of this encounter Visit Diagnoses Diagnosis Other systemic lupus erythematosus with other organ involvement (HCC) documented in this encounter Care Teams Concept Artist Relationship Specialty Start Date End Date Manuel Klein MD PCP - General Family Medicine 02/27/22 Manuel Klein MD Referring Family Medicine 02/12/22 Manuel Klein MD [address] [place] [address] Referring Family Medicine 07/06/24 documented as of this encounter
--- OUTSIDE RECORDS SUMMARY | 2025-02-26 17:57 | XMS_ITS | Encounter Summary ---
Author Organization [facility] Address [address] [place] [address] Care Team Providers Care Auto Glass Worker Name Role Phone Manuel Klein MD Unavailable [phone] Manuel Klein MD Primary Care Provider +-4 Manuel Klein MD Unavailable Source Comments In the event this information is protected by the Federal Confidentiality of Alcohol and Drug AbusePatient Records regulations: The Federal rules restrict any use of the information to criminally investigate or prosecute any alcohol or drug abuse patient.[facility] Encounter Details Date Type Department Care Team (Late st Contact Info) Description 12/24/2022 Patient Msg Allergy [address] [place] [id number] Misty Nelson MD [facility] [place] [address] Request an Appointment Social History [...] 4 09/24/2022 Data from: https://www.neighborhoodatlas.medicine.[facility]/. Last address used for calculation [address] 09/24/2022 Comments No Sex and Gender [...] [facility] Center Hematology/Oncology [address] [place] [address] BENLYSTA - 03/21/2025 9:00 AM EDT Office Visit [facility] Laboratory [facility] [place] [address] 4 week follow up IVIG - pt to see MASON for this appt per [facility] 03/21/2025 9:20 AM EDT Visit (SP) Office Hematology/Oncology [address] [facility] [place] [address] Jose Cho MD [address] [facility] [place] [address] 4 week follow up IVIG - pt to see MASON for this appt per [facility] 03/21/2025 9:40 AM EDT Infusion Center Hematology/Oncology [address] [facility] [place] [address] Gabbi, Chair 4 [address] [facility] [place] [address] 4 week follow up IVIG - pt to see MASON for this appt per [facility] 04/05/2025 2:00 PM EST Infusion Center Hematology/Oncology [address] [facility] [place] [address] BENLYSTA - 05/03/2025 2:00 PM EST Infusion Center Hematology/Oncology [address] [facility] [place] [address] BENLYSTA - documented as of this encounter Visit Diagnoses Not on filedocumented in this encounter Care Teams Auto Glass Worker Relationship Specialty Start Date End Date Manuel Klein MD PCP - General Family Medicine 02/27/22 Manuel Klein MD Referring Family Medicine 02/12/22 Manuel Klein MD [address] [place] [address] Referring Family Medicine 07/06/24 documented as of this encounter
--- OUTSIDE RECORDS SUMMARY | 2025-02-26 17:57 | XMS_ITS | Encounter Summary ---
Author Organization [facility] Address [facility] [place] [address] Care Team Providers Care It Security Analyst Name Role Phone Manuel Klein MD Unavailable [phone] Manuel Klein MD Primary Care Provider +-4 Manuel Klein MD Unavailable [phone] Source Comments In the event this information is protected by the Federal Confidentiality of Alcohol and Drug AbusePatient Records regulations: The Federal rules restrict any use of the information to criminally investigate or prosecute any alcohol or drug abuse patient.[facility] Encounter Details Date Type Department Care Team (Late st Contact Info) Description 02/11/2023 Patient [facility] HB-3 [address] [place] [address] Provider, Ccf Huseyin Approved - Action Needed! [...] is lower risk 4 09/24/2022 Data from: https://www.neighborhoodatlas.medicine.[facility].edu/. Last address used for calculation [address] 09/24/2022 Comments No Sex and Gender [...] Contact Info) Description 03/08/2025 2:00 PM EDT [facility] Center Hematology/Oncology [address] [facility] [place] [address] BENLYSTA - 03/21/2025 9:00 AM EDT Office Visit [facility] Laboratory [address] [facility] [place] [address] 4 week follow up IVIG - pt to see MASON for this appt per [facility] 03/21/2025 9:20 AM EDT Visit (SP) Office Hematology/Oncology [address] [facility] [place] [address] Jose Cho MD [address] [facility] [place] [address] 4 week follow up IVIG - pt to see MASON for this appt per [facility] 03/21/2025 9:40 AM EDT Infusion Center Hematology/Oncology [address] [facility] [place] [address] Gabbi, Chair [address] [facility] [place] [address] 4 week follow up IVIG - pt to see MASON for this appt per [facility] 04/05/2025 2:00 PM EST Infusion Center Hematology/Oncology [address] [place] [address] [place] [address] BENLYSTA - 05/03/2025 2:00 PM [facility] Infusion Center Hematology/Oncology [address] [place] [address] [place] [address] BENLYSTA - documented as of this encounter Visit Diagnoses Not on filedocumented in this encounter Care Teams It Security Analyst Relationship Specialty Start Date End Date Manuel Klein MD PCP - General Family Medicine 02/27/22 Manuel Klein MD Referring Family Medicine 02/12/22 Manuel Klein MD [address] [place] [address] Referring Family Medicine 07/06/24 documented as of this encounter
--- OUTSIDE RECORDS SUMMARY | 2025-02-26 17:57 | XMS_ITS | Encounter Summary ---
Author Organization [facility] Address [facility] [place] [address] Care Team Providers Care Mop Worker Name Role Phone Manuel Klein MD Unavailable [phone] Manuel Klein MD Primary Care Provider +-4 Manuel Klein MD Unavailable [phone] Source Comments In the event this information is protected by the Federal Confidentiality of Alcohol and Drug AbusePatient Records regulations: The Federal rules restrict any use of the information to criminally investigate or prosecute any alcohol or drug abuse patient.[facility] Encounter Details Date Type Department Care Team (Late st Contact Info) Description 03/04/2023 Patient [facility] HB-3 [address] [place] [address] Provider, Ccf Benlysta Injection Video Social History [...] lower risk 4 09/24/2022 Data from: https://www.neighborhoodatlas.medicine.[facility].edu/. Last address used for calculation [address] 09/24/2022 Comments No Sex and Gender [...] Description 03/08/2025 2:00 PM EDT [facility] Center Hematology/Oncology [address] [place] [address] BENLYSTA - 03/21/2025 9:00 AM EDT Office Visit [facility] Laboratory [address] [place] [address] 4 week follow up IVIG - pt to see MASON for this appt per [facility] 03/21/2025 9:20 AM EDT Visit (SP) Office Hematology/Oncology [address] [place] [address] Jose Cho MD [address] [place] [address] 4 week follow up IVIG - pt to see MASON for this appt per [facility] 03/21/2025 9:40 AM EDT Infusion Center Hematology/Oncology [address] [place] [address] Gabbi, Chair [address] [place] [address] 4 week follow up IVIG - pt to see MASON for this appt per [facility] 04/05/2025 2:00 PM EST Infusion Center Hematology/Oncology [address] [place] [address] [place] [address] BENLYSTA - 05/03/2025 2:00 PM [facility] Infusion Center Hematology/Oncology [address] [place] [address] [place] [address] BENLYSTA - documented as of this encounter Visit Diagnoses Not on filedocumented in this encounter Care Teams Mop Worker Relationship Specialty Start Date End Date Mnauel Klein MD PCP - General Family Medicine 02/27/22 Manuel Klein MD Referring Family Medicine 02/12/22 Manuel Klein MD [address] [place] [address] Referring Family Medicine 07/06/24 documented as of this encounter
--- OUTSIDE RECORDS SUMMARY | 2025-02-26 17:57 | XMS_ITS | Encounter Summary ---
Author Organization [facility] Address [address] [facility] [place] [address] Care Team Providers Care Architectural Engineering Teacher Name Role Phone House, Charles Culver MD Primary Care Provider [phone] Gay De La Torre MD Unavailable [phone] Encounter Details Date Type Department Care Team (Late Contact Info) Description 06/14/2024 Clinisync Result Encounter [facility] External Department Unsolicited Oly Plascencia PA [address] [place] [address] [place] [address] Social History Tobacco Use Types [...] AM EDT Consult [facility] [address] [facility] [address] [place] [address] Terence Blum MD [address] [facility] [address] [place] [address] 03/19/2025 10:20 AM EDT Office Visit [facility] [address] [facility] [address] [place] [address] Mary Grace Mejias MD [address] [facility] [address] [place] [address] 07/25/2025 11:00 AM EST Office Visit [facility] [address] [place] [address] Cynthia English MD [address] [place] [address] documented as of this encounter Procedures Procedure Name Priority Date/Time Associated Diagnosis Comments US BREAST LT LIMITED 06/14/2024 3:04 PM EST documented in this encounter Results * US BREAST LT LIMITED (06/14/2024 3:04 PM EST) Anatomical Region Laterality Modality Other 06/14/2024 3:04 PM EST Narrative 06/14/2024 3:05 PM EST [address] [address] Ultrasound Report Signed Patient: JONES PANIAGUA MR#: [id number] : 1980 Acct:[id number] Age/Sex: 43 / F ADM Date: 06/14/24 Loc: MAMMO Attending Dr: Oly Plascencia Ordering Physician: Oly Plascencia Date of Service: 06/14/24 Procedure(s): US breast LT limited Accession Number(s): [id number] cc: Oly Plascencia; GAY DE LA TORRE Patient Name: JONES PANIAGUA MR#: [id number] : 1980 Exam Date: 06/14/2024 Ordering Doctor: [...] Signed By: 06/14/24 1505 DD/ 1504 TD/TT: Agency Cashier: Procedure Note Radiology, Radiologist, MD - 06/14/2024 [place] [address] Ultrasound Report Signed Patient: JONES PANIAGUA BMR#: [id number] : 1980Acct:[id number] Age/Sex: 43 / FADM Date: 06/14/24 Loc: MAMMO Attending Dr: Oly Plascencia Ordering Physician: Oly Plascencia Date of Service: 06/14/24 Procedure(s): US breast LT limited Accession Number(s): [id number] cc: Oly Plascencia; GAY DE LA TORRE Patient Name: JONES PANIAGUA MR#: [id number] : 1980 Exam Date: 06/14/2024 Ordering Doctor: [...] M.D. Signed By:06/14/24 1505 DD/ 1504 TD/TT: Agency Cashier: us [facility] Final Result documented in this encounter Visit Diagnoses Not on filedocumented in this encounter Care Teams Architectural Engineering Teacher Relationship Specialty Start Date End Date Charles Nicole MD PCP - General Family Medicine 02/09/24 07/17/24 Gay De La Torre MD [address] [place] [address] Referring Physician Family Medicine 07/18/24 documented as of this encounter
--- OUTSIDE RECORDS SUMMARY | 2025-02-26 17:57 | XMS_ITS | Encounter Summary ---
Author Organization [facility] Address [address] [place] [address] Care Team Providers Care General Teller Name Role Phone Aime Davidson MD, Lui Nunez Primary Care Provid er Gay De La Torre(Historical) ENVIRONMENTAL HEALTH AND SAFETY LEADER.INSULATOR HELPER Primary Care Provider Unavailable Manuel Klein MD Unavailable [phone] Manuel Klein MD Primary Care Provider [phone] Manuel Klein MD Unavailable [phone] Source Comments In the event this information is protected by the Federal Confidentiality of Alcohol and Drug AbusePatient Records regulations: The Federal rules restrict any use of the information to criminally investigate or prosecute any alcohol or drug abuse patient.[facility] Encounter Details Date Type Department Care Team (Late st Contact Info) Description 12/31/2014 Get Medical Advice Internal Medicine [facility] [place] [address] Lui Salomon Jr., MD [address] [place] [address] Medication Question (Not Renewal) Social [...] Assessment Author No 12/25/2014 11:14 AM EDT Chicih De Jesus * Do you have serious [...] 03/08/2025 2:00 PM EDT [facility] Hematology[facility]Oncology [address] [place] [address] [place] [address] BENLYSTA - 03/21/2025 9:00 AM EDT Office Visit [facility] Laboratory [address] [facility] [place] [address] 4 week follow up IVIG - pt to see MASON for this appt per [facility] 03/21/2025 9:20 AM EDT Visit (SP) Office Hematology/Oncology [address] [facility] [address] Jose Cho MD [address] [facility] [place] [address] 4 week follow up IVIG - pt to see MASON for this appt per [facility] 03/21/2025 9:40 AM EDT Infusion Center Hematology/Oncology [address] [facility] [place] [address] Corona, Chair 4 [address] [facility] [address] 4 week follow up IVIG - pt to see MASON for this appt per [facility] 04/05/2025 2:00 PM EST Infusion Center Hematology/Oncology [address] [facility] [place] [address] BENLYSTA - 05/03/2025 2:00 PM [facility] Infusion Center Hematology/Oncology [address] [place] [address] [place] [address] BENLYSTA - documented as of this encounter Visit Diagnoses Not on filedocumented in this encounter Care Teams General Teller Relationship Specialty Start Date End Date Lui Salomon Jr., MD PCP - General Internal Medicine 05/31/14 07/08/20 Gay De La Torre(Historical), ENVIRONMENTAL HEALTH AND SAFETY LEADER.INSULATOR HELPER PCP - General Family Medicine 10/24/21 02/26/22 Manuel Klein MD PCP - General Family Medicine 02/27/22 Manuel Klein MD Referring Family Medicine 02/12/22 Manuel Klein MD [address] [place] [id number] Referring Family Medicine 07/06/24 documented as of this encounter
--- OUTSIDE RECORDS SUMMARY | 2025-02-26 17:57 | XMS_ITS | Encounter Summary ---
Author Organization [facility] Address [address] [place] [address] Care Team Providers Care Walking Dragline Oiler Name Role Phone Manuel Klein MD Unavailable [phone] Manuel Klein MD Primary Care Provider +-4 Manuel Klein MD Unavailable [phone] Source Comments In the event this information is protected by the Federal Confidentiality of Alcohol and Drug AbusePatient Records regulations: The Federal rules restrict any use of the information to criminally investigate or prosecute any alcohol or drug abuse patient.[facility] Encounter Details Date Type Department Care Team (Late st Contact Info) Description 10/02/2022 Get Medical Advice Integrative and Lifestyle Medicine [address] [place] [address] Christie Phan MD [address], [place] [address] Trulicity Social History Tobacco Use [...] risk 4 09/24/2022 Data from: https://www.neighborhoodatlas.medicine.[facility]/. Last address used for calculation [address] 09/24/2022 Comments No Sex and Gender [...] 2:00 PM EDT [facility] Hematology/Oncology [facility] [place] [address] BENLYSTA - 03/21/2025 9:00 AM EDT Office Visit [facility] Laboratory [facility] [place] [address] 4 week follow up IVIG - pt to see MASON for this appt per [facility] 03/21/2025 9:20 AM EDT Visit (SP) Office Hematology/Oncology [address] [place] [address] Jose Cho MD [address] [place] [address] 4 week follow up IVIG - pt to see MASON for this appt per [facility] 03/21/2025 9:40 AM EDT Infusion Center Hematology/Oncology [address] [place] [address] Gabbi, Chair [address] [place] [address] 4 week follow up IVIG - pt to see MASON for this appt per [facility] 04/05/2025 2:00 PM EST Infusion Center Hematology/Oncology [address] [place] [address] BENLYSTA - 05/03/2025 2:00 PM EST Infusion Center Hematology/Oncology [address] [place] [address] BENLYSTA - documented as of this encounter Visit Diagnoses Not on filedocumented in this encounter Care Teams Walking Dragline Oiler Relationship Specialty Start Date End Date Manuel Klein MD PCP - General Family Medicine 02/27/22 Manuel Klein MD Referring Family Medicine 02/12/22 Manuel Klein MD [address] [place] [address] Referring Family Medicine 07/06/24 documented as of this encounter
--- OUTSIDE RECORDS SUMMARY | 2025-02-26 17:57 | XMS_ITS | Encounter Summary ---
Author Organization [facility] Address [address] [place] [address] Care Team Providers Care Senior Statistical Programmer Name Role Phone Aime Davidson MD, Lui Nunez Primary Care Provid er Gay De La Torre(Historical) COUNTER SUPERVISOR.PLASTIC PARTS DESIGNER Primary Care Provider Unavailable Manuel Klein MD Unavailable [phone] Manuel Klein MD Primary Care Provider [phone] Manuel Klein MD Unavailable [phone] Source Comments In the event this information is protected by the Federal Confidentiality of Alcohol and Drug AbusePatient Records regulations: The Federal rules restrict any use of the information to criminally investigate or prosecute any alcohol or drug abuse patient.[facility] Encounter Details Date Type Department Care Team (Late st Contact Info) Description 12/31/2014 Patient Msg Medical Records [address] [place] [address] Provider, Ccf RE:Infection Social History Tobacco Use [...] [facility] Center Hematology/Oncology [address] [place] [address] [place] [address] BLANKATA - 03/21/2025 9:00 AM EDT Office Visit [facility] Laboratory [address] [place] [address] [place] [address] 4 week follow up IVIG - pt to see MASON for this appt per [facility] 03/21/2025 9:20 AM EDT Visit (SP) Office Hematology/Oncology [address] [place] [address] Jose Cho MD [address] [place] [address] [place] [address] 4 week follow up IVIG - pt to see MASON for this appt per [facility] 03/21/2025 9:40 AM EDT Infusion Center Hematology/Oncology [address] [facility] [place] [address] Gabbi, Chair [address] [place] [address] 4 week follow up IVIG - pt to see MASON for this appt per [facility] 04/05/2025 2:00 PM EST Infusion Center Hematology/Oncology [address] [facility] [place] [address] BENLYSTA - 05/03/2025 2:00 PM EST Infusion Center Hematology/Oncology [address] [facility] [place] [address] BENLYSTA - documented as of this encounter Visit Diagnoses Not on filedocumented in this encounter Care Teams Senior Statistical Programmer Relationship Specialty Start Date End Date Lui Salomon Jr., MD PCP - General Internal Medicine 05/31/14 07/08/20 Gay De La Torre(Historical), COUNTER SUPERVISOR.PLASTIC PARTS DESIGNER PCP - General Family Medicine 10/24/21 02/26/22 Manuel Klein MD PCP - General Family Medicine 02/27/22 Manuel Klein MD Referring Family Medicine 02/12/22 Manuel Klein MD [facility] [place] [address] Referring Family Medicine 07/06/24 documented as of this encounter
--- OUTSIDE RECORDS SUMMARY | 2025-02-26 17:57 | XMS_ITS | Encounter Summary ---
Author Organization [facility] Address [facility] [place] [address] Care Team Providers Care Corral Boss Name Role Phone Manuel Klein MD Unavailable [phone] Manuel Klein MD Primary Care Provider +-4 Manuel Klein MD Unavailable [phone] Source Comments In the event this information is protected by the Federal Confidentiality of Alcohol and Drug AbusePatient Records regulations: The Federal rules restrict any use of the information to criminally investigate or prosecute any alcohol or drug abuse patient.[facility] Encounter Details Date Type Department Care Team (Late st Contact Info) Description 10/29/2022 Patient Msg Integrated Medicine [address] [place] [address] Christie Phan MD [address] [address] Trulicity Social History Tobacco Use [...] lower risk 4 09/24/2022 Data from: https://www.neighborhoodatlas.medicine.[facility]/. Last address used for calculation [address] 09/24/2022 Comments No Sex and Gender [...] Yes 12/25/2014 11:14 AM EDT Chichi De Jessu * Do you have difficulty dressing or [...] Contact Info) Description 03/08/2025 2:00 PM EDT [facility] Center Hematology/Oncology [address] [place] [address] BENLYSTA - 03/21/2025 9:00 AM EDT Office Visit [facility] Laboratory [facility] [place] [address] 4 week follow up IVIG - pt to see MASON for this appt per [facility] 03/21/2025 9:20 AM EDT Visit (SP) Office Hematology/Oncology [address] [place] [address] Jose Cho MD [address] [place] [address] 4 week follow up IVIG - pt to see MASON for this appt per [facility] 03/21/2025 9:40 AM EDT Infusion Center Hematology/Oncology [address] [place] [address] Gabbi, Chair [address] [place] [address] 4 week follow up IVIG - pt to see MASON for this appt per [facility] 04/05/2025 2:00 PM EST Infusion Center Hematology/Oncology [address] [place] [address] BENLYSTA - 05/03/2025 2:00 PM EST Infusion Center Hematology/Oncology [address] [place] [address] BENLYSTA - documented as of this encounter Visit Diagnoses Not on filedocumented in this encounter Care Teams Corral Boss Relationship Specialty Start Date End Date Manuel Klein MD PCP - General Family Medicine 02/27/22 Manuel Klein MD Referring Family Medicine 02/12/22 Manuel Klein MD [address] [place] [facility] [place] [address] Referring Family Medicine 07/06/24 documented as of this encounter
--- OUTSIDE RECORDS SUMMARY | 2025-02-26 17:57 | XMS_ITS | Clinical Summary ---
Author Organization [facility] Address [address] [facility], [address] [place] [address] Care Team Providers Care Screen Tender Name Role Phone Gay De La Torre APRN - CLAY HOUSE WORKER Primary Care Provide r Allergies Active Allergy [...] 8:32 AM 10/08/2020 2:43 AM Care Teams Screen Tender Relationship Specialty Start Date End Date Gay De La Torre, MAURILIO - CLAY HOUSE WORKER [address] [place] [address] PCP - General 06/03/21
--- OUTSIDE RECORDS SUMMARY | 2025-02-26 17:57 | XMS_ITS | Encounter Summary ---
Author Organization [facility] Address [address] [place] [address] Care Team Providers Care Heater Operator Name Role Phone Manuel Klein MD Unavailable [phone] Manuel Klein MD Primary Care Provider +-4 Manuel Klein MD Unavailable [phone] Source Comments In the event this [...] Medical Advice Integrative and Lifestyle Medicine [address] [place] [address] Christie Phan MD [address] [address] Trulicity Social History Tobacco Use [...] risk 4 09/24/2022 Data from: https://www.neighborhoodatlas.medicine.[facility]/. Last address used for calculation [address] 09/24/2022 Comments No Sex and Gender [...] Contact Info) Description 03/08/2025 2:00 PM EDT [facility] Hematology/Oncology [facility] [place] [address] BENLYSTA - 03/21/2025 9:00 AM EDT Office Visit [facility] Laboratory [facility] [place] [address] 4 week follow up IVIG - pt to see MASON for this appt per [facility] 03/21/2025 9:20 AM EDT Visit (SP) Office Hematology/Oncology [address] [place] [address] Jose Cho MD [address] [facility] [place] [address] 4 week follow up IVIG - pt to see MASON for this appt per [facility] 03/21/2025 9:40 AM EDT Infusion Center Hematology/Oncology [address] [place] [address] Gabbi, Chair [address] [facility] [place] [address] 4 week follow up IVIG - pt to see MASON for this appt per [facility] 04/05/2025 2:00 PM EST Infusion Center Hematology/Oncology [address] [facility] [place] [address] BENLYSTA - 05/03/2025 2:00 PM EST Infusion Center Hematology/Oncology [address] [facility] [place] [address] BENLYSTA - documented as of this encounter Visit Diagnoses Not on filedocumented in this encounter Care Teams Heater Operator Relationship Specialty Start Date End Date Manuel Klein MD PCP - General Family Medicine 02/27/22 Manuel Klein MD Referring Family Medicine 02/12/22 Manuel Klein MD [address] [place] [address] Referring Family Medicine 07/06/24 documented as of this encounter
--- OUTSIDE RECORDS SUMMARY | 2025-02-26 17:57 | XMS_ITS | Encounter Summary ---
Author Organization [facility] Address [address] [place] [address] Care Team Providers Care Environmental Sciences Professor Name Role Phone Aime Davidson MD, Lui Nunez Primary Care Provid er Gay De La Torre(Historical) FLEXIBLE BABYSITTER.TERMINAL GAUGER Primary Care Provider Unavailable Manuel Klein MD Unavailable [phone] Manuel Klein MD Primary Care Provider [phone] Manuel Klein MD Unavailable [phone] Source Comments In the event this information is protected by the Federal Confidentiality of Alcohol and Drug AbusePatient Records regulations: The Federal rules restrict any use of the information to criminally investigate or prosecute any alcohol or drug abuse patient.[facility] Encounter Details Date Type Department Care Team (Late st Contact Info) Description 05/01/2015 Get Medical Advice Internal Medicine [facility] [place] [address] Lui Salomon Jr., MD [address] [address] RE: Medication Question (Not Renewal) [...] [facility] Hematology/Oncology [address] [place] [address] BENLYSTA - 03/21/2025 9:00 AM EDT Office Visit [facility] Laboratory [facility] [place] [address] 4 week follow up IVIG - pt to see MASON for this appt per [facility] 03/21/2025 9:20 AM EDT Visit (SP) Office Hematology/Oncology [facility] [place] [address] Jose Cho MD [address] [place] [address] 4 week follow up IVIG - pt to see MASON for this appt per [facility] 03/21/2025 9:40 AM EDT Infusion Center Hematology/Oncology [address] [place] [address] Gabbi, Chair [address] [place] [address] 4 week follow up IVIG - pt to see MASON for this appt per [facility] 04/05/2025 2:00 PM EST Infusion Center Hematology/Oncology [address] [place] [address] BENLYSTA - 05/03/2025 2:00 PM EST Infusion Center Hematology/Oncology [address] [place] [address] [place] [address] BENLYSTA - documented as of this encounter Visit Diagnoses Not on filedocumented in this encounter Care Teams Environmental Sciences Professor Relationship Specialty Start Date End Date Lui Salomon Jr., MD PCP - General Internal Medicine 05/31/14 07/08/20 Gay De La Torre(Historical), FLEXIBLE BABYSITTER.TERMINAL GAUGER PCP - General Family Medicine 10/24/21 02/26/22 Manuel Klein MD PCP - General Family Medicine 02/27/22 Manuel Klein MD Referring Family Medicine 02/12/22 Manuel Klein MD [address] [place] [address] Referring Family Medicine 07/06/24 documented as of this encounter
--- OUTSIDE RECORDS SUMMARY | 2025-02-26 17:57 | XMS_ITS | Encounter Summary ---
Author Organization [facility] Address [address] [place] [address] Care Team Providers Care Industrial Safety And Health Specialist Name Role Phone Manuel Klein MD Unavailable [phone] Manuel Klein MD Primary Care Provider [phone] Manuel Klein MD Unavailable [phone] Source Comments In the event this information is protected by the Federal Confidentiality of Alcohol and Drug AbusePatient Records regulations: The Federal rules restrict any use of the information to criminally investigate or prosecute any alcohol or drug abuse patient.[facility] Encounter Details Date Type Department Care Team (Late st Contact Info) Description 10/15/2022 Get Medical Advice Allergy [address] [place] [phone] Msity Nelson MD [address] [place] [address] Vaccine Social History Tobacco Use Types [...] risk 4 09/24/2022 Data from: https://www.neighborhoodatlas.medicine.[facility]/. Last address used for calculation [address] 09/24/2022 Comments No Sex and Gender [...] EDT [facility] Hematology/Oncology [facility] [address] BENLYSTA - 03/21/2025 9:00 AM EDT Office Visit [facility] Laboratory [facility] [address] 4 week follow up IVIG - pt to see MASON for this appt per [facility] 03/21/2025 9:20 AM EDT Visit (SP) Office Hematology/Oncology [address] [place] [address] Jose Cho MD [address] [place] [address] 4 week follow up IVIG - pt to see MASON for this appt per [facility] 03/21/2025 9:40 AM EDT Infusion Center Hematology/Oncology [address] [place] [address] Gabbi, Chair [address] [place] [address] 4 week follow up IVIG - pt to see MASON for this appt per [facility] 04/05/2025 2:00 PM EST Infusion Center Hematology/Oncology [address] [place] [address] BENLYSTA - 05/03/2025 2:00 PM EST Infusion Center Hematology/Oncology [address] [place] [address] BENLYSTA - documented as of this encounter Visit Diagnoses Not on filedocumented in this encounter Care Teams Industrial Safety And Health Specialist Relationship Specialty Start Date End Date Manuel Klein MD PCP - General Family Medicine 02/27/22 Manuel Klein MD Referring Family Medicine 02/12/22 Manuel Klein MD [address] [place] [address] Referring Family Medicine 07/06/24 documented as of this encounter
--- OUTSIDE RECORDS SUMMARY | 2025-02-26 17:57 | XMS_ITS | Encounter Summary ---
Author Organization [facility] Address [address] [place] [address] Care Team Providers Care Regulatory Lead Name Role Phone Aime Davidson MD, Lui Nunez Primary Care Provid er Gay De La Torre(Historical) GRAPPLE OPERATOR.SUBSTANCE ABUSE THERAPIST Primary Care Provider Unavailable Manuel Klein MD Unavailable [phone] Manuel Klein MD Primary Care Provider [phone] Manuel Klein MD Unavailable [phone] Source Comments In the event this [...] Patient Msg Internal Medicine [facility] [address] [place] [address] Lui Salomon Jr., MD [address] [address] Appointment Cancellation Request Social History [...] [facility] Hematology/Oncology [address] [place] [address] BENLYSTA - 03/21/2025 9:00 AM EDT Office Visit [facility] [place] [address] 4 week follow up IVIG - pt to see MSAON for this appt per [facility] 03/21/2025 9:20 AM EDT Visit (SP) Office Hematology/Oncology [facility] [place] [address] Jose Cho MD [address] [facility] [place] [address] 4 week follow up IVIG - pt to see MASON for this appt per [facility] 03/21/2025 9:40 AM EDT Infusion Center Hematology/Oncology [address] [facility] [place] [address] Gabbi, Chair 4 [address] [facility] [place] [address] 4 week follow up IVIG - pt to see MASON for this appt per [facility] 04/05/2025 2:00 PM EST Infusion Center Hematology/Oncology [address] [facility] [place] [address] BENLYSTA - 05/03/2025 2:00 PM EST Infusion Center Hematology/Oncology [address] [facility] [place] [address] BENLYSTA - documented as of this encounter Visit Diagnoses Not on filedocumented in this encounter Care Teams Regulatory Lead Relationship Specialty Start Date End Date Lui Salomon Jr., MD PCP - General Internal Medicine 05/31/14 07/08/20 Gay De La Torre(Historical), GRAPPLE OPERATOR.SUBSTANCE ABUSE THERAPIST PCP - General Family Medicine 10/24/21 02/26/22 Manuel Klein MD PCP - General Family Medicine 02/27/22 Manuel Klein MD Referring Family Medicine 02/12/22 Manuel Klein MD [address] [place] [place] [address] Referring Family Medicine 07/06/24 documented as of this encounter
--- OUTSIDE RECORDS SUMMARY | 2025-02-26 17:57 | XMS_ITS | Encounter Summary ---
Author Organization [facility] Address [address] [facility] [place] [address] Care Team Providers Care Hand Slitter Name Role Phone House, Charles Culver MD Primary Care Provider [phone] Gay De La Torre MD Unavailable Reason for Visit * Reason Comments Med Refill Encounter Details Date Type Department Care Team (Late Contact Info) Description 07/02/2024 Refill [facility] [address] [facility] [address] [place] [address] Mary Grace Mejias MD [address] [facility] [address] [place] [address] LPRD (laryngopharyngeal reflux disease) Social History Tobacco [...] [facility] [address] [place] [address] Terence Blum MD [address] [facility] [address] [place] [address] 03/19/2025 10:20 AM EDT Office Visit [facility] [address] [place] [address] Mary Grace Mejias MD [address] [facility] [address] [place] [address] 07/25/2025 11:00 AM EST Office Visit [facility] [address] [place] [address] Cynthia English MD [address] [place] [address] documented as of this encounter Visit Diagnoses Diagnosis LPRD (laryngopharyngeal reflux disease) Acute laryngitis, without mention of obstruction documented in this encounter Care Teams Hand Slitter Relationship Specialty Start Date End Date Charles Nicole MD PCP - General Family Medicine 02/09/24 07/17/24 Gay De La Torre MD [address] [place] [address] Referring Physician Family Medicine 07/18/24 documented as of this encounter
--- OUTSIDE RECORDS SUMMARY | 2025-02-26 17:57 | XMS_ITS | Encounter Summary ---
Author Organization [facility] Address [address] [place] [address] Care Team Providers Care Coil Binder Name Role Phone Aime Davidson MD, Lui Nunez Primary Care Provid er Gay De La Torre(Historical) COMPLIANCE FIELD TECHNICIAN.AVIATION CONSULTANT Primary Care Provider Unavailable Manuel Klein MD Unavailable Manuel Klein MD Primary Care Provider [phone] Manuel Klein MD Unavailable Source Comments In [...] Description 12/31/2014 Patient Msg Medical Records [address] [place] [address] Provider, Ccf Prescription Social History Tobacco Use [...] EDT [facility] Hematology/Oncology [address] [place], [place] [address] [address] TOOTIELYSTA - 03/21/2025 9:00 AM EDT Office Visit [facility] Laboratory [place] [address] 4 week follow up IVIG - pt to see MASON for this appt per [facility] 03/21/2025 9:20 AM EDT Visit (SP) Office Hematology/[place] [address] Jose Cho MD [address] [place] [address] [place] [address] 4 week follow up IVIG - pt to see MASON for this appt per [facility] 03/21/2025 9:40 AM EDT Infusion Center Hematology/Oncology [address] [place] [address] Gabbi, Chair [address] [place] [address] 4 week follow up IVIG - pt to see MASON for this appt per [facility] 04/05/2025 2:00 PM EST Infusion Center Hematology/Oncology [address] [facility] [place] [address] BENLYSTA - 05/03/2025 2:00 PM EST Infusion Center Hematology/Oncology [address] [facility] [place] [address] BENLYSTA - documented as of this encounter Visit Diagnoses Not on filedocumented in this encounter Care Teams Coil Binder Relationship Specialty Start Date End Date Lui Salomon Jr., MD PCP - General Internal Medicine 05/31/14 07/08/20 Gay De La Torre(Historical), COMPLIANCE FIELD TECHNICIAN.AVIATION CONSULTANT PCP - General Family Medicine 10/24/21 02/26/22 Manuel Klein MD PCP - General Family Medicine 02/27/22 Manuel Klein MD Referring Family Medicine 02/12/22 Manuel Klein MD [address] [place] [address] Referring Family Medicine 07/06/24 documented as of this encounter
--- OUTSIDE RECORDS SUMMARY | 2025-02-26 17:57 | XMS_ITS | Encounter Summary ---
Author Organization [facility] Address [address] [place] [address] Care Team Providers Care Bowling Pin Refinisher Name Role Phone Manuel Klein MD Unavailable [phone] Manuel Klein MD Primary Care Provider [phone] Manuel Klein MD Unavailable [phone] Source Comments In the event this information is protected by the Federal Confidentiality of Alcohol and Drug AbusePatient Records regulations: The Federal rules restrict any use of the information to criminally investigate or prosecute any alcohol or drug abuse patient.[facility] Encounter Details Date Type Department Care Team (Late st Contact Info) Description 05/11/2023 Get Medical Advice Rheumatology [address] [place], [place] [id number] Sandra Park MD [address] [place] [address] Flair Social History Tobacco Use [...] lower risk 4 09/24/2022 Data from: https://www.neighborhoodatlas.medicine.[facility] healthcare.[facility]/. Last address used for calculation [address] [...] SPEC EST 08/12/2023 9:00 AM [facility] MEG Last Ophthalmology Check for Plaquenil (Hydroxychloroquine) [...] 2:00 PM EDT Infusion Center Hematology/Oncology [address] [facility] [place] [address] BENLYSTA - 03/21/2025 9:00 AM EDT Office Visit [facility] Laboratory [address] [place] [address] 4 week follow up IVIG - pt to see MASON for this appt per [facility] 03/21/2025 9:20 AM EDT Visit (SP) Office Hematology/Oncology [address] [facility] [place] [address] Jose Cho MD [address] [facility] [place] [address] 4 week follow up IVIG - pt to see MASON for this appt per [facility] 03/21/2025 9:40 AM EDT Infusion Center Hematology/Oncology [address] [facility] [place] [address] Amador, Chair [address] [facility] [place] [address] 4 week follow up IVIG - pt to see MASON for this appt per [facility] 04/05/2025 2:00 PM EST Infusion Center Hematology/Oncology [address] [facility] [place] [address] BENLYSTA - 05/03/2025 2:00 PM EST Infusion Center Hematology/Oncology [address] [facility] [place] [address] BENLYSTA - documented as of this encounter Visit Diagnoses Diagnosis Other systemic lupus erythematosus with other organ involvement (HCC) documented in this encounter Care Teams Bowling Pin Refinisher Relationship Specialty Start Date End Date Manuel Klien MD PCP - General Family Medicine 02/27/22 Manuel Klein MD Referring Family Medicine 02/12/22 Manuel Klein MD [address] [place] [address] Referring Family Medicine 07/06/24 documented as of this encounter
--- OUTSIDE RECORDS SUMMARY | 2025-02-26 17:58 | XMS_ITS | Encounter Summary ---
Author Organization [facility] Address [address] [facility] [place] [address] Care Team Providers Care Reduction Plant Supervisor Name Role Phone House, Charles Culver MD Primary Care Provider Gay De La Torre MD Unavailable [phone] Encounter Details Date Type Department Care Team (Late Contact Info) Description 06/14/2024 Clinisync Result Encounter [facility] External Department Unsolicited Oly Plascencia PA [address] [place] [address] [place] [address] Social History Tobacco Use Types [...] AM EDT Consult [facility] [address] [facility] 150 [place] [address] Terence Blum MD 7[address] [facility] 150 [place] [address] 03/19/2025 10:20 AM EDT Office Visit [facility] [address] [facility] [address] [place] [address] Mary Grace Mejias MD [address] [facility] [address] [place] [address] 07/25/2025 11:00 AM EST Office Visit [facility] [address] [place] [address] Cynthia English MD [address] [place] [address] documented as of this encounter Procedures Procedure Name Priority Date/Time Associated Diagnosis Comments MM TOMOSYNTHESIS DIAGNOSTIC LT 06/14/2024 4:14 PM EST documented in this encounter Results * MM TOMOSYNTHESIS DIAGNOSTIC LT (06/14/2024 4:14 PM EST) Anatomical Region Laterality Modality Other 06/14/2024 4:14 PM EST Narrative 06/14/2024 4:15 PM EST [address] [address] Mammography Report Signed Patient: JONES PANIAGUA MR#: [id number] : 1980 Acct:[id number] Age/Sex: 43 / F ADM Date: 06/14/24 Loc: MAMMO Attending Dr: Oly Plascencia Ordering Physician: Oly Plascencia Results: Date of Service: 06/14/24 Follow Up: Procedure(s): MM tomosynthesis diagnostic LT Accession Number(s): [id number] cc: Oly Plascencia; GAY DE LA TORRE Patient Name: JONES PANIAGUA MR#: [id number] : 1980 Exam Date: 06/14/2024 Ordering Doctor: [...] stomach cancer at age 56. LOCATION: [facility] BREAST COMPOSITION: There are scattered areas [...] Signed By: 06/14/24 1615 DD/ 1614 TD/TT: Expediter Service Order: Procedure Note Radiology, Radiologist, MD - 06/14/2024 [place] [address] Mammography Report Signed Patient: JONES PANIAGUA BMR#: [id number] : 1980Acct:[id number] Age/Sex: 43 / FADM Date: 06/14/24 Loc: MAMMO Attending Dr: Oly Plascencia Ordering Physician: Oly PlascenciaResults: Date of Service: 06/14/24Follow Up: Procedure(s): MM tomosynthesis diagnostic LT Accession Number(s): [id number] cc: Oly Plascencia; GAY DE LA TORRE Patient Name: JONES PANIAGUA MR#: [id number] : 1980 Exam Date: 06/14/2024 Ordering Doctor: KELVIN Plascencia . RADIOLOGY REPORT PROCEDURE: MM TOMOSYNTHESIS DIAGNOSTIC LT COMPARISON: US BREAST LT LIMITED, 06/14/2024. MM TOMOSYNTHESISDIAGNOSTIC BI, 04/06/2024. MM TOMOSYNTHESIS SCREENING BI, 09/23/2023. MG MAMM [id number] MARK CAD, 09/01/2022. INDICATIONS: Left Axilla Nodule Calculator Name NCI Breast Cancer Risk Assessment Tool 5 Year Breast Cancer Risk 1.00% Lifetime Breast Cancer Risk 13.20% Personal Breast Cancer No Personal Ovarian Cancer No Treatments None Family Cancers Grandmother-paternal with breast cancer at age 67; Aunt-paternal with breast cancer at age 50; Father with stomach cancer at age 56. LOCATION: [facility] BREAST COMPOSITION: There are scattered areas [...] Yusuf M.D. Signed By:06/14/245 DD/ 13 TD/TT: Expediter Service Order: us [facility] Final Result documented in this encounter Visit Diagnoses Not on filedocumented in this encounter Care Teams Reduction Plant Supervisor Relationship Specialty Start Date End Date Charles Nicole MD PCP - General Family Medicine 02/09/24 07/17/24 Gay De La Torre MD [address] [place] [address] Referring Physician Family Medicine 07/18/24 documented as of this encounter
--- OUTSIDE RECORDS SUMMARY | 2025-02-26 17:58 | XMS_ITS | Encounter Summary ---
Author Organization [facility] Address [address] [place] [address] Care Team Providers Care Legal Transcriptionist Name Role Phone Manuel Klein MD Unavailable [phone] Manuel Klein MD Primary Care Provider [phone] Manuel Klein MD Unavailable [phone] Source Comments In the event this information is protected by the Federal Confidentiality of Alcohol and Drug AbusePatient Records regulations: The Federal rules restrict any use of the information to criminally investigate or prosecute any alcohol or drug abuse patient.[facility] Encounter Details Date Type Department Care Team (Late st Contact Info) Description 07/06/2024 Patient Msg Referring Physician [address] [place] [address] Provider, Ccf Appointment Social History Tobacco Use [...] is lower risk 4 09/24/2022 Data from: https://www.neighborhoodatlas.[facility].edu/. Last address used for calculation [address] 09/24/2022 Comments No Sex and Gender [...] Contact Info) Description 03/08/2025 2:00 PM EDT [facility] Hematology/Oncology [address] [place] [address] BENLYSTA - 03/21/2025 9:00 AM EDT Office Visit [facility] [place] [address] 4 week follow up IVIG - pt to see MASON for this appt per [facility] 03/21/2025 9:20 AM EDT Visit (SP) Office Hematology/Oncology [facility] [place] [address] Jose Cho MD [address] [place] [address] 4 week follow up IVIG - pt to see MASON for this appt per [facility] 03/21/2025 9:40 AM EDT Infusion Center Hematology/Oncology [address] [place] [address] Gabbi, Chair [address] [place] [address] 4 week follow up IVIG - pt to see MASON for this appt per [facility] 04/05/2025 2:00 PM EST Infusion Center Hematology/Oncology [address] [place] [address] BENLYSTA - 05/03/2025 2:00 PM [facility] Infusion Center Hematology/Oncology [address] [place] [address] [place] [address] BENLYSTA - documented as of this encounter Visit Diagnoses Not on filedocumented in this encounter Care Teams Legal Transcriptionist Relationship Specialty Start Date End Date Manuel Klein MD PCP - General Family Medicine 02/27/22 Manuel Klein MD Referring Family Medicine 02/12/22 Manuel Klien MD [address] [place] [address] Referring Family Medicine 07/06/24 documented as of this encounter
--- OUTSIDE RECORDS SUMMARY | 2025-02-26 17:58 | XMS_ITS | Encounter Summary ---
Author Organization [facility] Address [address] [facility] [place] [address] Care Team Providers Care Car Dumper Operator Helper Name Role Phone House, Charles Culver MD Primary Care Provider Gay De La Torre MD Unavailable [phone] Encounter Details Date Type Department Care Team (Late Contact Info) Description 04/07/2024 Clinisync Result Encounter [facility] External Department Unsolicited Oly Parnell PA [address] [place] [address] [place] [address] Social History Tobacco Use Types [...] AM EDT Consult [facility] [address] [facility] 150 [place] [address] Terence Blum MD 703 [facility] 150 [place] [address] 03/19/2025 10:20 AM EDT Office Visit [facility] [address] [facility] 900 [place] [address] Mary Grace Mejias MD [address] [facility] 130 [place] [address] 07/25/2025 11:00 AM EST Office Visit [facility] [address] [place] [address] Cynthia English MD [address] [place] [address] documented as of this encounter Procedures Procedure Name Priority Date/Time Associated Diagnosis Comments US PELVIS W/ TRANSVAGINAL 04/07/2024 4:48 AM EST documented in this encounter Results * US PELVIS W/ TRANSVAGINAL (04/07/2024 4:48 AM EST) Anatomical Region Laterality Modality Other 04/07/2024 4:48 AM EST Narrative 04/07/2024 4:51 AM EST [address] [address] Ultrasound Report Signed Patient: JONES PANIAGUA MR#: [id number] : 1980 Acct:[id number] Age/Sex: 43 / F ADM Date: 04/06/24 Loc: LAB Attending Dr: Oly Parnell Ordering Physician: Oly Parnell Date of Service: 04/06/24 Procedure(s): US pelvis w/ transvaginal Accession Number(s): [id number] cc: GAY Mcpherson [address] [address] Patient Name: JONES PANIAGUA MRN: [id number] date: 1980 Sex: F Assigned Patient Location: LAB Current Patient Location: Accession/Order Number: [id number] Exam Date: 04/06/2024 15:45 Report Date: 04/07/2024 [...] Signed By: 04/07/24 0451 DD/ 0448 TD/TT: Enterprise Software Engineer: Procedure Note Radiology, Radiologist, MD - 04/07/2024 [place] [address] Ultrasound Report Signed Patient: JONES PANIAGUA BMR#: [id number] : 1980Acct:[id number] Age/Sex: 43 / FADM Date: 04/06/24 Loc: LAB Attending Dr: Oly Parnell Ordering Physician: Oly Parnell Date of Service: 04/06/24 Procedure(s): US pelvis w/ transvaginal Accession Number(s): [id number] cc: GAY Mcpherson The [address] [address] Patient Name: JONES PANIAGUA MRN: [id number] date: 1980 Sex: F Assigned Patient Location: LAB Current Patient Location: Accession/Order Number: [id number] Exam Date: 04/06/2024 15:45 Report Date: 04/07/2024 [...] Yusuf M.D. Signed By:04/07/24 045 DD/ TD/TT: Enterprise Software Engineer: us Oly WARREN [facility] Final Result documented in this encounter Visit Diagnoses Not on filedocumented in this encounter Care Teams Car Dumper Operator Helper Relationship Specialty Start Date End Date Charles Nicole MD PCP - General Family Medicine 02/09/24 07/17/24 Gay De La Torre MD [address] [place] [address] Referring Physician Family Medicine 07/18/24 documented as of this encounter
--- OUTSIDE RECORDS SUMMARY | 2025-02-26 17:58 | XMS_ITS | Encounter Summary ---
Author Organization [facility] Address [address] [facility] [place] [address] Care Team Providers Care Roofing Superintendent Name Role Phone House, Charles Culver MD Primary Care Provider Gay De La Torre MD Unavailable [phone] Encounter Details Date Type Department Care Team (Late Contact Info) Description 04/07/2024 Clinisync Result Encounter [facility] External Department Unsolicited Luan Valdivia, DO [address] [facility] [place]am [place], [place] [id number] Social History Tobacco Use Types Packs/Day Years [...] [facility] [address] [facility] 150 [place] [address] Terence Blum MD 703 [facility] 150 [place] [address] 03/19/2025 10:20 AM EDT Office Visit [facility] [address] [place] [address] Mary Grace Mejias MD [address] [facility] 130 [place] [address] 07/25/2025 11:00 AM EST Office Visit [facility] [address] [place] [address] Cynthia English MD [address] [place] [address] documented as of this encounter Procedures Procedure Name Priority Date/Time Associated Diagnosis Comments US BREAST BI LIMITED 04/07/2024 8:40 AM EST documented in this encounter Results * US BREAST BI LIMITED (04/07/2024 8:40 AM EST) Anatomical Region Laterality Modality Other 04/07/2024 8:40 AM EST Narrative 04/07/2024 8:41 AM EST [address] [address] Ultrasound Report Signed Patient: JONES PANIAGUA MR#: [id number] : 1980 Acct:[id number] Age/Sex: 43 / F ADM Date: 04/06/24 Loc: US Attending Dr: Luan Valdivia D.O. Ordering Physician: Luan Valdivia D.O. Date of Service: 04/06/24 Procedure(s): US breast BI limited Accession Number(s): [id number] cc: GAY DE LA TORRE ; Luan Valdivia D.O. Patient Name: JONES PANIAGUA MR#: [id number] : 1980 Exam Date: 04/06/2024 Ordering Doctor: [...] stomach cancer at age 56. LOCATION: The [facility] BREAST COMPOSITION: There are [...] Signed By: 04/07/24 0841 DD/ 0840 TD/TT: Marble Setter: Procedure Note Radiology, Radiologist, MD - 04/07/2024 [place] [address] Ultrasound Report Signed Patient: JONES PANIAGUA BMR#: [id number] : 1980Acct:[id number] Age/Sex: 43 / FADM Date: 04/06/24 Loc: US Attending Dr: Luan Valdivia D.O. Ordering Physician: Luan Valdivia D.O. Date of Service: 04/06/24 Procedure(s): US breast BI limited Accession Number(s): [id number] cc: GAY DE LA TORRE ; Luan Valdivia D.O. Patient Name: JONES PANIAGUA MR#: [id number] : 1980 Exam Date: 04/06/2024 Ordering Doctor: DR Luan Valdivia . RADIOLOGY REPORT PROCEDURE: MM TOMOSYNTHESIS DIAGNOSTIC BI, 04/06/2024, 15:20 US BREAST BI LIMITED, 04/06/2024, 15:37 COMPARISON: MM TOMOSYNTHESIS SCREENING BI, 09/23/2023. MG MAMM [id number] MARK CAD, 09/01/2022. MG MAMM SCREEN 3D [...] stomach cancer at age 56. LOCATION: The [facility] BREAST COMPOSITION: There are [...] Vito Yusuf M.D. Signed By:04/07/2441 DD/ TD/TT: Marble Setter: Luan Valdivia DO [facility] Final Result documented in this encounter Visit Diagnoses Not on filedocumented in this encounter Care Teams Roofing Superintendent Relationship Specialty Start Date End Date Charles Nicole MD PCP - General Family Medicine 02/09/24 07/17/24 Gay De La Torre MD [address] [place] [address] Referring Physician Family Medicine 07/18/24 documented as of this encounter
--- OUTSIDE RECORDS SUMMARY | 2025-02-26 17:58 | XMS_ITS | Encounter Summary ---
Author Organization [facility] Address [facility] [place] [address] Care Team Providers Care Force Variation Equipment Tender Name Role Phone Manuel Klein MD Unavailable [phone] Manuel Klein MD Primary Care Provider [phone] Manuel Klein MD Unavailable [phone] Source Comments In the event this information is protected by the Federal Confidentiality of Alcohol and Drug AbusePatient Records regulations: The Federal rules restrict any use of the information to criminally investigate or prosecute any alcohol or drug abuse patient.[facility] Encounter Details Date Type Department Care Team (Late st Contact Info) Description 07/06/2024 Get Medical Advice Infectious Disease [address] [place] [address] Tiffany Head DO [address] [place] [address] Appointment Social History Tobacco Use Types [...] from: https://www.neighborhoodatlas.medicine.[facility]/. Last address used for calculation [address] 09/24/2022 Comments No Sex and Gender [...] EDT [facility] Hematology/Oncology [address] [place] [address] BEN[place]STA - 03/21/2025 9:00 AM EDT Office Visit [facility] [address] [place] [address] [place] [address] 4 week follow up IVIG - pt to see MASON for this appt per [facility] 03/21/2025 9:20 AM EDT Visit (SP) Office Hematology/Oncology [address] [place] [address] Jose Cho MD [address] [place] [address] 4 week follow up IVIG - pt to see MASON for this appt per [facility] 03/21/2025 9:40 AM EDT Infusion Center Hematology/Oncology [address] [place] [address] Gabbi, Chair [address] [place] [address] 4 week follow up IVIG - pt to see MASON for this appt per [facility] 04/05/2025 2:00 PM EST Infusion Center Hematology/Oncology [address] [place] [address] BENLYSTA - 05/03/2025 2:00 PM EST Infusion Center Hematology/Oncology [address] [place] [address] BENLYSTA - documented as of this encounter Visit Diagnoses Not on filedocumented in this encounter Care Teams Force Variation Equipment Tender Relationship Specialty Start Date End Date Manuel Klein MD PCP - General Family Medicine 02/27/22 Manuel Klein MD Referring Family Medicine 02/12/22 Manuel Klein MD [address] [place] [address] Referring Family Medicine 07/06/24 documented as of this encounter
--- OUTSIDE RECORDS SUMMARY | 2025-02-26 17:58 | XMS_ITS | Encounter Summary ---
Author Organization [facility] Address [address] [place] [address] Care Team Providers Care Security Screener Name Role Phone House, Charles Culver MD Primary Care Provider Gay De La Torre MD Unavailable [phone] Encounter Details Date Type Department Care Team (Late Contact Info) Description 04/07/2024 Clinisync Result Encounter [facility] External Department Unsolicited Luan Valdivia, DO 102 [facility] [place] [place], [place] [id number] Social History Tobacco Use Types Packs/Day Years [...] AM EDT Consult [facility] 703 [facility] 150 [place] [address] Terence Blum MD 703 [facility] 150 [place] [address] 03/19/2025 10:20 AM EDT Office Visit [facility] [address] [place] [address] Mary Grace Mejias MD [address] [facility] 130 [place] [address] 07/25/2025 11:00 AM EST Office Visit [facility] [address] [place] [address] Cynthia English MD [address] [place] [address] documented as of this encounter Procedures Procedure Name Priority Date/Time Associated Diagnosis Comments MM TOMOSYNTHESIS DIAGNOSTIC BI 04/07/2024 8:40 AM EST documented in this encounter Results * MM TOMOSYNTHESIS DIAGNOSTIC BI (04/07/2024 8:40 AM EST) Anatomical Region Laterality Modality Other 04/07/2024 8:40 AM EST Narrative 04/07/2024 8:41 AM EST [address] [address] Mammography Report Signed Patient: JONES PANIAGUA MR#: [id number] : 1980 Acct:[id number] Age/Sex: 43 / F ADM Date: 04/06/24 Loc: US Attending Dr: Luan Valdivia D.O. Ordering Physician: Luan Valdivia D.O. Results: Date of Service: 04/06/24 Follow Up: Procedure(s): MM tomosynthesis diagnostic BI Accession Number(s): [id number] cc: GAY DE LA TORRE ; Luan Valdivia D.O. Patient Name: JONES PANIAGUA MR#: [id number] : 1980 Exam Date: 04/06/2024 Ordering Doctor: [...] cancer at age 56. LOCATION: The [facility] BREAST COMPOSITION: There are scattered areas [...] Signed By: 04/07/24 0841 DD/ 0840 TD/TT: Wool Sacker: Procedure Note Radiology, Radiologist, MD - 04/07/2024 [place] [address] Mammography Report Signed Patient: JONES PANIAGUA BMR#: [id number] : 1980Acct:[id number] Age/Sex: 43 / FADM Date: 04/06/24 Loc: US Attending Dr: Luan Valdivia D.O. Ordering Physician: Luan Valdivia D.O.Results: Date of Service: 04/06/24Follow Up: Procedure(s): MM tomosynthesis diagnostic BI Accession Number(s): [id number] cc: GAY DE LA TORRE ; Luan Valdivia D.O. Patient Name: JONES PANIAGUA MR#: [id number] : 1980 Exam Date: 04/06/2024 Ordering Doctor: DR Luan Valdivia . RADIOLOGY REPORT PROCEDURE: MM TOMOSYNTHESIS DIAGNOSTIC BI, 04/06/2024, 15:20 US BREAST BI LIMITED, 04/06/2024, 15:37 COMPARISON: MM TOMOSYNTHESIS SCREENING BI, 09/23/2023. MG MAMM [id number] MARK CAD, 09/01/2022. MG MAMM SCREEN 3D [...] cancer at age 56. LOCATION: The [facility] BREAST COMPOSITION: There are scattered areas [...] Vito Yusuf M.D. Signed By:04/07/2441 DD/ TD/TT: Wool Sacker: Luan Valdivia DO [facility] Final Result documented in this encounter Visit Diagnoses Not on filedocumented in this encounter Care Teams Security Screener Relationship Specialty Start Date End Date Charles Nicole MD PCP - General Family Medicine 02/09/24 07/17/24 Gay De La Torre MD [address] [place], [place] [address] Referring Physician Family Medicine 07/18/24 documented as of this encounter
--- OUTSIDE RECORDS SUMMARY | 2025-02-26 17:58 | XMS_ITS | Encounter Summary ---
Author Organization [facility] Address [address] [facility] [place] [address] Care Team Providers Care Grain Buyer Name Role Phone House, Charles Culver MD Primary Care Provider Gay De La Torre MD Unavailable [phone] Encounter Details Date Type Department Care Team (Late Contact Info) Description 04/26/2024 Clinisync Result Encounter [facility] External Department Unsolicited Judy Arciniega MD [address], [address] [address] Social History Tobacco Use Types Packs/Day Years [...] Associates 703 [facility] 150 [place] [address] Terence Blum MD 703 [facility] 150 [place] [address] 03/19/2025 10:20 AM EDT Office Visit [facility] [address] [facility] 900 [place] [address] Mary Grace Mejias MD [address] [facility] 130 [place] [address] 07/25/2025 11:00 AM EST Office Visit [facility] [address] [place] [address] Cynthia English MD [address] [place] [address] documented as of this encounter Procedures Procedure Name Priority Date/Time Associated Diagnosis Comments SEGMENTAL BLOOD PRESSURE 04/26/2024 12:29 PM EST documented in this encounter Results * SEGMENTAL BLOOD PRESSURE (04/26/2024 12:29 PM EST) Anatomical Region Laterality Modality Radiographic Melody ging 04/26/2024 12:2 9 PM EST Narrative 04/26/2024 12:31 PM EST [address] [address] Vein Report Signed Patient: JONES PANIAGUA MR#: [id number] : 1980 Acct:[id number] Age/Sex: 43 / F ADM Date: 04/26/24 Loc: VC Attending Dr: Judy Arciniega M.D. Ordering Physician: Judy Arciniega M.D. Date of Service: 04/26/24 Procedure(s): VC SEGMENTAL PRESSURES Accession Number(s): [id number] cc: GAY DE LA TORRE ; Judy Arciniega M.D. [address] [address] Patient Name: JONES PANIAGUA MRN: [id number] date: 1980 Sex: F Assigned Patient Location: VC Current Patient Location: Accession/Order Number: [id number] Exam Date: 04/26/2024 10:45 Report Date: 04/26/2024 12:29 At the request of: JUDY ARCINIEGA Procedure: VC SEGMENTAL PRESSURES EXAM: VC SEGMENTAL PRESSURES HISTORY: I73.9 COMPARISON: None. FINDINGS: Segmental pressures presented as follows (right, left) in mmHg. Brachial: 102, 109 Upper thigh: 175, 183 Lower thigh: 166, 177 Calf: 140, 143 DPA: 123, 148 SUPERVISOR OFFSET PLATE PREPARATION: 139, 155 1st Toe: 141, 143 SAMUEL: [...] Signed By: 04/26/24 1231 DD/ 1229 TD/TT: Biology Department Chair: Procedure Note Radiology, Radiologist, MD - 04/26/2024 [place] [address] Vein Report Signed Patient: JONES PANIAGUA BMR#: [id number] : 1980Acct:[id number] Age/Sex: 43 / FADM Date: 04/26/24 Loc: Attending Dr: Judy Arciniega M.D. Ordering Physician: Judy Arciniega M.D. Date of Service: 04/26/24 Procedure(s): VC SEGMENTAL PRESSURES Accession Number(s): [id number] cc: GAY DE LA TORRE ; Judy Arciniega M.D. The [place] [address] Patient Name: JONES PANIAGUA MRN: [id number] date: 1980 Sex: F Assigned Patient Location: Current Patient Location: VC Accession/Order Number: [id number] Exam Date: 04/26/2024 10:45 Report Date: 04/26/2024 12:29 At the request of: JUDY ARCINIEGA Procedure: VC SEGMENTAL PRESSURES EXAM: VC SEGMENTAL PRESSURES HISTORY: I73.9 COMPARISON: None. FINDINGS: Segmental pressures presented as follows (right, left) in mmHg. Brachial: 102, 109 Upper thigh: 175, 183 Lower thigh: 166, 177 Calf: 140, 143 DPA: 123, 148 SUPERVISOR OFFSET PLATE PREPARATION: 139, 155 1st Toe: 141, 143 SAMUEL: [...] M.D. Signed By:04/26/24 1231 DD/ 1229 TD/TT: Biology Department Chair: us Judy Arciniega MD IMG XR PROCEDURES Final Resu lt documented in this encounter Visit Diagnoses Not on filedocumented in this encounter Care Teams Grain Buyer Relationship Specialty Start Date End Date Charles Nicole MD PCP - General Family Medicine 02/09/24 07/17/24 Gay De La Torre MD [address] [place], [place] [id number] Referring Physician Family Medicine 07/18/24 documented as of this encounter
--- OUTSIDE RECORDS SUMMARY | 2025-02-26 18:02 | XMS_ITS | CCD ---
Author Organization [facility] Care Team Providers Care Admissions Rn Name Role Phone VICTOR MANUEL GUZMAN Referring Unavailable Unavailable Primary Care Provider UnavailJONAS Stuart Referring Unavailable Britt DIRECTOR OF PRECLINICAL RESEARCH.HOME HEALTH NURSE LICENSED PRACTICAL, Gay Primary Care Provider [phone] Mirela Kelsey Unavailable Britt DIRECTOR OF PRECLINICAL RESEARCH.Gay BISWAS Primary Care Provider Manuel Ferris MD Unavailable [...] Provider Manuel Ferris MD Primary Care Provider [phone] MD Adolfo Kang Attending Provider CARISSA Enciso-Ananya Estrada Primary Care Provider [phone] Charles Nicole MD Primary Care Provider CALOS MENDOZA Attending Unavailable Unavailable Primary Care Provider UnavailManuel Calixto MD Unavailable Britt LAB CLERK-C, Gay Estrada Primary Care Provider Jorge Luis LEE, Adolfo S Attending Provider [phone] ALHAJI HEAD Attending Unavailable MANUEL FERRIS Primary [...] BRITT, GAY S Primary Care Unavailable Britt LAB CLERK-C, Gay Natalie Primary Care Provider [phone] Adolfo Kang MD Attending Provider [phone] Britt LAB CLERK-C, Gay Natalie Primary Care Provider Jorge Luis LEE, Adolfo Jane Attending Provider Margie Arnett NP Attending Provider Britt LAB CLERK-C, Gay Natalie Primary Care Provider Jorge Luis [...] Britt, Gay Natalie Primary Care Unavailable Britt LAB CLERK-C, Gay Natalie Primary Care Provider [phone] Adolfo Kang MD Attending Provider [phone] Janes Barfield MD Attending Provider Adolfo Kang [...] Referring Unavailable MARKY BARNES Attending Unavailable HOY, MANUEL M Primary Care Unavailable ANDRE CARVALHOE Referring [...] sources) Trimethoprim Drug Allergy Other: See Comments [facility] Doxycycline (3 sources) Doxycycline Drug Allergy Other: See Comments [facility] Latex (3 sources) Latex Substance Allergy Rash [facility] Lincosamides (antibiotic) (3 sources) Clindamycin Drug Allergy Unknown [facility] Opioid Agonists (3 sources) Codeine Drug Allergy Other: See Comments [facility] Sulfamethoxazole / Trimethoprim (4 sources) Sulfamethoxazole / Trimethoprim Drug Allergy [facility] Sulfonamides (antibiotic) (3 sources) Sulfamethoxazole Drug Allergy Other: See Comments [facility] Work Phone: (20 sources) Codeine; Translations: [CODEINE] Drug Allergy Other: See Comments [facility] (20 sources) Latex; Translations: [LATEX] Drug Allergy Rash [facility] (20 sources) Sulfamethoxazole; Translations: [SULFAMETHOXAZOLE] Drug Allergy GI Upset, Other: See Comments [facility] (20 sources) Clindamycin; Translations: [CLINDAMYCIN] Drug Allergy Unknown [facility] (4 sources) Sulfamethoxazole / Trimethoprim Drug Allergy lymph swelling zerobound Other (20 sources) Doxycycline; Translations: [DOXYCYCLINE] Drug Allergy Other: See Comments, Other, Unknown, Other (See Comments) [facility] (20 sources) Sulfamethoxazole / Trimethoprim; Translations: [SULFAMETHOXAZOLE-T RIMETHOPRIM] Drug Allergy Swelling, Other, GI Disturbance, Other (See Comments) [facility] (20 sources) Trimethoprim; Translations: [TRIMETHOPRIM] Drug Allergy Other: See Comments [facility] (1 source) Latex Drug allergy (disorder) [facility] Repository (1 source) Sulfamethoxazole / Trimethoprim Drug Allergy [facility]ository (20 sources) Sulfamethoxazole Allergy to substance [facility] (20 sources) Latex Propensity to adverse reactions 015 Rash [facility] (1 source) Omeprazole; Translations: [OMEPRAZOLE] Drug Allergy [facility] Repository (1 source) pantoprazole; Translations: [PANTOPRAZOLE] Drug Allergy 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 HOLD IF ON ANTIBIOTICS OR ILL. 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 02/01/2024 Active vnrscdpcwvJJLVT-contsi-cxxeu belia (BMX 1:1:1) 1:1:1 liqd (20 sources) Start: 07-12-2024 take 5 mL by mouth every six hours as needed ybpuezzkuhRGRTF-cbulvh-amwythcxu (BMX 1:1:1) 1:1:1 liqd Take 5 mL [...] Comment on above: Take 1 capsule by [facility] once daily. ergocalciferol 1.25 mg oral capsule (20 sources) Provitamin D2 Compound Start: 11-13-2024 Ergocalciferol (Vitamin D2) 1,250 mcg (50,000 unit) capsule Active 22160 UNIT PO 3 Times a week November [...] D2) 1,250 mcg (50,000 unit) capsule Discontinued 74549 UNIT PO every week October 20, 2023 [...] 0 03/06/2021 Active take 1 capsule by co [facility] every week ergocalciferol (Vitamin D2) 1.25 MG (83941 UT) capsule Take 50,000 Units by mouth [...] Active Start: 10-20-2023 take 4 tablets by [facility] once daily Metoprolol [...] Active Start: 05-25-2022 take 1 tablet by [facility] twice daily metoprolol tartrate, short acting, [...] Discontinued Start: 08-29-2022 take 1 capsule by [facility] once daily naltrexone [...] 0.4 mg unde r the tongue. nystatin 656494 unt/ml oral suspension (20 sources) Polyene Antifungal [...] swallow Start: 07-25-2024 End: 08-08-2024 nystatin (Mycostatin) 157944 UNIT/ML suspension Indications: Rash and other nonspecific [...] Start: 10-20-2023 take 2 tablets by mo [facility] once daily Prednisone 10 mg tablet [...] g 11 07/25/2024 Active Start: 08-16-2023 tacrolimus (PA OTOPIC) 0.1 % ointment Apply 1 Application [...] on above: Take 1 capsule by mo [facility] twice daily. pravastatin sodium 20 mg [...] completed) take 1 tablet by mouth once aknur y VIT/IRON FUMARATE/FA ( VITAMIN ORAL) Take [...] aftercare (1 source) Polypharmacy ; Translations: [Other buttermilk drier operator (current) drug therapy] Episodic Other aftercare [...] (20 sources) Drug therapy finding; Translations: [Other buttermilk drier operator (current) drug therapy] Onset: 1 Episodic Other aftercare (20 sources) H/O: high risk medication; Translations: [Other jail (current) drug therapy] Onset: 3 06-15-2022 Episodic Other aftercare (1 source) Other buttermilk drier operator (current) drug therapy; Translations: [OTH DATABASE MANAGER 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 THERAPY] Onset: 2 Episodic Other aftercare (20 sources) Long-term current use of systemic steroid; Translations: [[facility] (current) use of 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] Onset: 3 [...] Basophils (Bld) [#/Vol] 0.09 10*3/uL Normal <0.11 [facility] Comment on above: Order Comment: Speci men Type: BLOOD SPECIMENOrdering Facility: [facility] Address: [address] [place] [address] Performed By: #### 5 7021-8 ####[facility] LABCLIA [id number] [place] [address] Basophils/100 WBC (Bld) 0.7 % Normal [facility] Comment on above: Order Comment: Speci men Type: BLOOD SPECIMENOrdering Facility: [facility] Address: [address] [place] [address] Performed By: #### 5 7021-8 ####[facility] LABCLIA [id number] [place] [address] Differential cell count method Nom (Bld) Auto Normal [facility] Comment on above: Order Comment: Speci men Type: BLOOD SPECIMENOrdering Facility: [facility] Address: [address] [place] [address] Performed By: #### 5 7021-8 ####[facility] LABCLIA [id number] [place] [address] Eosinophils (Bld) [#/Vol] 0.11 10*3/uL Normal <0.46 [facility] Comment on above: Order Comment: Speci men Type: BLOOD SPECIMENOrdering Facility: [facility] Address: [address] [place] [address] Performed By: #### 5 7021-8 ####[facility] LABCLIA [id number] [place] [address] Eosinophils/100 WBC (Bld) 0.8 % Normal [facility] Comment on above: Order Comment: Speci men Type: BLOOD SPECIMENOrdering Facility: [facility] Address: [address] [place] [address] Performed By: #### 5 7021-8 ####[facility] LABCLIA [id number] [place] [address] Erythrocyte distribution width (RBC) [Ratio] 14.3 % Normal 11.5-15.0 [facility] Comment on above: Order Comment: Speci men Type: BLOOD SPECIMENOrdering Facility: [facility] Address: [address] [place] [address] Performed By: #### 5 7021-8 ####[facility] LABCLIA [id number] [place] [address] Hematocrit (Bld) [Volume fraction] 46.0 % Normal 36.0-46.0 [facility] Comment on above: Order Comment: Speci men Type: BLOOD SPECIMENOrdering Facility: [facility] Address: [address] [place] [address] Performed By: #### 5 7021-8 ####[facility] LABCLIA [id number] [place] [address] Hemoglobin (Bld) [Mass/Vol] 15.1 g/dL Normal 11.5-15.5 [facility] Comment on above: Order Comment: Speci men Type: BLOOD SPECIMENOrdering Facility: [facility] Address: [address] [place] [address] Performed By: #### 5 7021-8 ####[facility] LABCLIA [id number] [place] [address] Immature granulocytes (Bld) [#/Vol] 0.21 10*3/uL High <0.10 [facility] Comment on above: Order Comment: Speci men Type: BLOOD SPECIMENOrdering Facility: [facility] Address: [address] [place] [address] Performed By: #### 5 7021-8 ####[facility] LABCLIA [id number] [place] [address] Immature granulocytes/100 WBC (Bld) 1.6 % Normal [facility] Comment on above: Order Comment: Speci men Type: BLOOD SPECIMENOrdering Facility: [facility] Address: [address] [place] [address] Performed By: #### 5 7021-8 ####[facility] LABCLIA [id number] [place] [address] Lymphocytes (Bld) [#/Vol] 1.89 10*3/uL Normal 1.00-4.00 [facility] Comment on above: Order Comment: Speci men Type: BLOOD SPECIMENOrdering Facility: [facility] Address: [address] [place] [address] Performed By: #### 5 7021-8 ####[facility] LABCLIA [id number] [place] [address] Lymphocytes/100 WBC (Bld) 14.4 % Normal [facility] Comment on above: Order Comment: Speci men Type: BLOOD SPECIMENOrdering Facility: [facility] Address: [address] [place] [address] Performed By: #### 5 7021-8 ####[facility] LABCLIA [id number] [place] [address] MCH (RBC) [Entitic mass] 31.7 pg Normal 26.0-34.0 [facility] Comment on above: Order Comment: Speci men Type: BLOOD SPECIMENOrdering Facility: [facility] Address: [address] [place] [address] Performed By: #### 5 7021-8 ####[facility] LABIA [id number] [place] [address] MCHC (RBC) [Mass/Vol] 32.8 g/dL Normal 30.5-36.0 [facility] Comment on above: Order Comment: Speci men Type: BLOOD SPECIMENOrdering Facility: [facility] Address: [address] [place] [address] Performed By: #### 5 7021-8 ####[facility] LABCLIA [id number] [place] [address] MCV (RBC) [Entitic vol] 96.4 fL Normal 80.0-100.0 [facility] Comment on above: Order Comment: Speci men Type: BLOOD SPECIMENOrdering Facility: [facility] Address: [address] [place] [address] Performed By: #### 5 7021-8 ####[facility] LABCLIA [id number] [place] [address] Monocytes (Bld) [#/Vol] 0.92 10*3/uL High <0.87 [facility] Comment on above: Order Comment: Speci men Type: BLOOD SPECIMENOrdering Facility: [facility] Address: [address] [place] [address] Performed By: #### 5 7021-8 ####[facility] LABCLIA [id number] [place] [address] Monocytes/100 WBC (Bld) 7.0 % Normal [facility] Comment on above: Order Comment: Speci men Type: BLOOD SPECIMENOrdering Facility: [facility] Address: [address] [place] [address] Performed By: #### 5 7021-8 ####[facility] LABCLIA [id number] [place] [address] Neutrophils (Bld) [#/Vol] 9.94 10*3/uL High 1.45-7.50 [facility] Comment on above: Order Comment: Speci men Type: BLOOD SPECIMENOrdering Facility: [facility] Address: [address] [place] [address] Performed By: #### 5 7021-8 ####[facility] LABCLIA [id number] [place] [address] Neutrophils/100 WBC (Bld) 75.5 % Normal [facility] Comment on above: Order Comment: Speci men Type: BLOOD SPECIMENOrdering Facility: [facility] Address: [address] [place] [address] Performed By: #### 5 7021-8 ####[facility] LABCLIA [id number] [place] [address] Nucleated RBC (Bld) [#/Vol] 10*3/uL Normal <0.01 [facility] Comment on above: Order Comment: Speci men Type: BLOOD SPECIMENOrdering Facility: [facility] Address: [address] [place] [address] Performed By: #### 5 7021-8 ####[facility] LABCLIA [id number] [place] [address] Nucleated RBC/100 WBC (Bld) [Ratio] 0.0 /100 WBC Normal [facility] Comment on above: Order Comment: Speci men Type: BLOOD SPECIMENOrdering Facility: [facility] Address: [address] [place] [address] Performed By: #### 5 7021-8 ####[facility] LABCLIA [id number] [place] [address] Platelet mean volume (Bld) [Entitic vol] 9.9 fL Normal 9.0-12.7 [facility] Comment on above: Order Comment: Speci men Type: BLOOD SPECIMENOrdering Facility: [facility] Address: [address] [place] [address] Performed By: #### 5 7021-8 ####[facility] LABIA [id number] [place] [address] Platelets (Bld) [#/Vol] 305 10*3/uL Normal 150-400 [facility] Comment on above: Order Comment: Speci men Type: BLOOD SPECIMENOrdering Facility: [facility] Address: [address] [place] [address] Performed By: #### 5 7021-8 ####[facility] LABCLIA [id number] [place] [address] RBC (Bld) [#/Vol] 4.77 10*6/uL Normal 3.90-5.20 [facility] Comment on above: Order Comment: Speci men Type: BLOOD SPECIMENOrdering Facility: [facility] Address: [address] [place] [address] Performed By: #### 5 7021-8 ####[facility] LABCLIA [id number] [place] [address] WBC (Bld) [#/Vol] 13.16 10*3/uL High 3.70-11.00 [facility] Comment on above: Order Comment: Speci men Type: BLOOD SPECIMENOrdering Facility: [facility] Address: [address] [place] [address] Performed By: #### 5 7021-8 ####[facility] LABCLIA [id number] [place] [address] CNOVSPon 02-21-2025 CNOVSP Normal [facility] CNPNon 02-21-2025 CNPN Normal [facility] Comprehensive metabolic 2000 panelon 02-21-2025 Albumin [Mass/Vol] 4.3 g/dL Normal 3.9-4.9 [facility] Comment on above: Order Comment: Speci men Type: BLOOD SPECIMENOrdering Facility: [facility] Address: [address] [place] [address] Performed By: #### 2 4323-8 ####[facility] LABCLIA [id number] [place] [address] ALP [Catalytic activity/Vol] 83 U/L Normal 34-123 [facility] Comment on above: Order Comment: Speci men Type: BLOOD SPECIMENOrdering Facility: [facility] Address: [address] [place] [address] Performed By: #### 2 4323-8 ####[facility] LABCLIA [id number] [place] [address] ALT [Catalytic activity/Vol] 49 U/L High 7-38 [facility] Comment on above: Order Comment: Speci men Type: BLOOD SPECIMENOrdering Facility: [facility] Address: [address] [address] Performed By: #### 2 4323-8 ####[facility] LABCLIA [id number] [place] [address] Anion gap [Moles/Vol] 17 mmol/L High 8-15 [facility] Comment on above: Order Comment: Speci men Type: BLOOD SPECIMENOrdering Facility: [facility] Address: [address] [place] [address] Performed By: #### 2 4323-8 ####[facility] LABCLIA [id number] [place] [address] AST [Catalytic activity/Vol] 20 U/L Normal 13-35 [facility] Comment on above: Order Comment: Speci men Type: BLOOD SPECIMENOrdering Facility: [facility] Address: [address] [place] [address] Performed By: #### 2 4323-8 ####[facility] LABCLIA [id number] [place] [address] Bilirubin [Mass/Vol] 0.3 mg/dL Normal 0.2-1.3 [facility] Comment on above: Order Comment: Speci men Type: BLOOD SPECIMENOrdering Facility: [facility] Address: [address] [place], [place] [address] Performed By: #### 2 4323-8 ####[facility] LABCLIA [id number] [place] [address] Calcium [Mass/Vol] 10.2 mg/dL Normal 8.5-10.2 [facility] Comment on above: Order Comment: Speci men Type: BLOOD SPECIMENOrdering Facility: [facility] Address: [address] [place] [address] Performed By: #### 2 4323-8 ####[facility] LABCLIA [id number] [place] [address] Chloride [Moles/Vol] 101 mmol/L Normal 98-107 [facility] Comment on above: Order Comment: Speci men Type: BLOOD SPECIMENOrdering Facility: [facility] Address: [address] [place] [address] Performed By: #### 2 4323-8 ####[facility] LABCLIA [id number] [place] [address] CO2 [Moles/Vol] 20 mmol/L Low 22-30 [facility] Comment on above: Order Comment: Speci men Type: BLOOD SPECIMENOrdering Facility: [facility] Address: [address] [place] [address] Performed By: #### 2 4323-8 ####[facility] LABCLIA [id number] [place] [address] Creatinine [Mass/Vol] 0.49 mg/dL Low 0.58-0.96 [facility] Comment on above: Order Comment: Speci men Type: BLOOD SPECIMENOrdering Facility: [facility] Address: [address] [place] [address] Performed By: #### 2 4323-8 ####[facility] LABCLIA [id number] [place] [address] eGFRcr SerPlBld CKD-EPI 2020 119 mL/min/1.73m??? Normal >=60 [facility] Comment on above: Order Comment: Speci men Type: BLOOD SPECIMENOrdering Facility: [facility] Address: [address] [place] [address] Result Comment: Erin mated Glomerular Filtration Rate [...] actual GFR. Performed By: #### 2 4323-8 ####[facility] LABCLIA [id number] [place] [address] Glucose [Mass/Vol] 248 mg/dL High 74-99 [facility] Comment on above: Order Comment: Semaj cortés Type: BLOOD SPECIMENOrdering Facility: [facility] Address: [address] [place], [place] [id number] Result Comment: The [place] Diabetes Association (ADA) provides guidance for cutoff [...] Standards of Medical Care in Diabetes 2016, [place] [employer]. Diabetes Care. 2016.39(Suppl 1). Performed By: #### 2 4323-8 ####[facility] LABCLIA [id number] [place] [address] Potassium [Moles/Vol] 4.1 mmol/L Normal 3.7-5.1 [facility] Comment on above: Order Comment: Semaj cortés Type: BLOOD SPECIMENOrdering Facility: [facility] Address: [address] [place] [address] Performed By: #### 2 4323-8 ####[facility] LABCLIA [id number] [place] [address] Protein [Mass/Vol] 7.6 g/dL Normal 6.3-8.0 [facility] Comment on above: Order Comment: Semaj cortés Type: BLOOD SPECIMENOrdering Facility: [facility] Address: [address] [place] [address] Performed By: #### 2 4323-8 ####[facility] LABCLIA [id number] [place] [address] Sodium [Moles/Vol] 138 mmol/L Normal 136-144 [facility] Comment on above: Order Comment: Speci men Type: BLOOD SPECIMENOrdering Facility: [facility] Address: [address] [place] [address] Performed By: #### 2 4323-8 ####[facility] LABCLIA [id number] [place] [address] Urea nitrogen [Mass/Vol] 16 mg/dL Normal 7-21 [facility] Comment on above: Order Comment: Speci men Type: BLOOD SPECIMENOrdering Facility: [facility] Address: [address] [place] [address] Performed By: #### 2 4323-8 ####[facility] LABCLIA [id number] [place] [address] Ferritin SerPl-mCncon 2024 Ferritin [Mass/Vol] 83.6 ng/mL Normal 14.7-205.1 [facility] Comment on above: Order Comment: Speci men Type: BLOOD SPECIMENOrdering Facility: [facility] Address: [address] [place] [address] Performed By: #### 5 0190-8, 2284-8, 2132-9, 2276-4 ####[facility] LABCLIA [id number] [place] [address] [place] Folate SerPl-mCncon 02-22-20 25 Folate [Mass/Vol] ng/mL Normal >4.7 [facility] Comment on above: Order Comment: Speci men Type: BLOOD SPECIMENOrdering Facility: [facility] Address: [address] [place] [address] Result Comment: A re sult of > 20 ng/mL is not necessarily indicative of a pathologic or treatable condition: it reflects a limitation of the test methodology.Assay reference range: 4.8 to 24.2 ng/mL. Suitable for detection of folate deficiency.Reference:Folate III (Folate III) [package insert V 1.0 Burmese]. [facility], [place], [place]: March 2015. Performed By: #### 5 0190-8, 2284-8, 2132-9, 2276-4 ####[facility] LABCLIA [id number] [place] [address] [place] IMMUNOGLOBULINS,IGG,IGA,IGMo n 02-21-2025 IgA [Mass/Vol] 184 mg/dL Normal 70-400 [facility] Comment on above: Order Comment: Speci men Type: BLOOD SPECIMENOrdering Facility: [facility] Address: [address] [place] [address] Performed By: #### S ERIMM ####[facility] LABCLIA [id number] [place] [address] [place] IgG [Mass/Vol] 610 mg/dL Low 700-1600 [facility] Comment on above: Order Comment: Speci men Type: BLOOD SPECIMENOrdering Facility: [facility] Address: [address] [place] [address] Performed By: #### S ERIMM ####[facility] LABCLIA [id number] [address] [place] IgM [Mass/Vol] 454 mg/dL High 40-230 [facility] Comment on above: Order Comment: Speci men Type: BLOOD SPECIMENOrdering Facility: [facility] Address: [address] [place] [address] Performed By: #### S ERIMM ####[facility] LABIA [id number] [place] [id number] [place] Iron and Iron binding capaci ty panelon 02-21-2025 Iron [Mass/Vol] 156 ug/dL Normal 41-186 [facility] Comment on above: Order Comment: Speci men Type: BLOOD SPECIMENOrdering Facility: [facility] Address: [address] [place] [address] Performed By: #### 5 0190-8, 2283-8, 2132-01, 2275-08 ####[facility] LABCLIA [id number] [place] [id number] [place] Iron binding capacity [Mass/Vol] 443 ug/dL High 232-386 [facility] Comment on above: Order Comment: Speci men Type: BLOOD SPECIMENOrdering Facility: [facility] Address: [address] [place] [address] Performed By: #### 5 0190-8, 2283-8, 2132-01, 2275-08 ####[facility] LABIA [id number] [place] [address] [place] Iron/TIBC [Molar ratio] 35.2 % Normal 15.0-57.0 [facility] Comment on above: Order Comment: Speci men Type: BLOOD SPECIMENOrdering Facility: [facility] Address: [address] [place] [address] Performed By: #### 5 0190-8, 2283-8, 2132-01, 2275-08 ####[facility] LABIA [id number] [place] [address] [place] Vit B12 [facility] 10-01-2 025 Cobalamin (Vitamin B12) [Mass/Vol] 694 pg/mL Normal 232-1245 [facility] Comment on above: Order Comment: Speci men Type: BLOOD SPECIMENOrdering Facility: [facility] Address: [address] [place], [place] [id number] Performed By: #### 5 0190-8, 2283-8, 2132-01, 2275-08 ####[facility] LABIA [id number] [place] [id number] [place] CNPNon 02-12-2025 CNPN Normal [facility] HCG ( test) Marcelo varela Ql (U)Ordered By: Adolfo Kang on 01-31-2025 HCG ( test) Ql (U) Negative [facility] HCG,Urineon 01-31-2025 Beta HCG ( test) Ql (U) Negative Normal [facility] Comment on above: Result Comment: PERF ORMED BY: [facility] [address] [place] [address] PATHOLOGIST SUBSCRIPTION AGENT TIM FOOTE M.D. Performed By: #### U HCG #### [facility] [address] [place] [id number] RUST BI US BREAST LIMITED LEFTon 01-26-2025 BI [...] Normal Not Available CNPNon 01-18-2025 CNPN Normal [facility] 25(OH)D3 [facility] 20[facility] 25-hydroxyvitamin D3 [Mass/Vol] 32.2 ng/mL Normal 31.0-80.0 [facility] Comment on above: Order Comment: Speci men Type: BLOOD SPECIMENOrdering Facility: [facility] Address: [address] [place] [address] Performed By: #### 1 989-3 ####[facility] LABCLIA [id number] [address] OF [facility] BLOOD TB SCREENon 01-11-2025 M. tuberculosis tuberculin stim IFN-g Ql (Bld) Negative Normal [facility] Comment on above: Order Comment: Speci men Type: BLOOD SPECIMENOrdering Facility: [facility] Address: [address] [place] [address] Performed By: #### I NFTBP ####[facility] LABCLIA [id number] [place] [address] [place] MITOGEN MINUS NIL >9.97 Normal >=0.50 [facility] Comment on above: Order Comment: Speci men Type: BLOOD SPECIMENOrdering Facility: [facility] Address: [address] [place] [address] Performed By: #### I NFTBP ####[facility] LABCLIA [id number] [place] [address] [place] TB GAMMA INTERPRETATION Normal [facility] Comment on above: Order Comment: Speci men Type: BLOOD SPECIMENOrdering Facility: [facility] Address: [address] [place] [address] Performed By: #### I NFTBP ####[facility] LABCLIA [id number] [address] [place] TB NIL 0.03 IU/mL Normal <=8.00 [facility] Comment on above: Order Comment: Speci men Type: BLOOD SPECIMENOrdering Facility: [facility] Address: [address] [place] [address] Performed By: #### I NFTBP ####[facility] LABCLIA [id number] [address] [place] TB1 AG MINUS NIL 0.01 IU/mL Normal <0.35 [facility] Comment on above: Order Comment: Speci men Type: BLOOD SPECIMENOrdering Facility: [facility] Address: [address] [place] [address] Performed By: #### I NFTBP ####[facility] LABCLIA [id number] [address] TB2 AG MINUS NIL 0.01 IU/mL Normal <0.35 [facility] Comment on above: Order Comment: Speci men Type: BLOOD SPECIMENOrdering Facility: [facility] Address: [address] [place] [address] Performed By: #### I NFTBP ####[facility] LABCLIA [id number] [place] [address] [place] CBC panel Auto (Bld)on 01-11 Erythrocyte distribution width (RBC) [Ratio] 14.5 % 11.5 - 15.0 % [facility] Hematocrit (Bld) [Volume fraction] 41.5 % 36.0 - 46.0 % [facility] Hemoglobin (Bld) [Mass/Vol] 13.8 g/dL 11.5 - 15.5 g/dL [facility] Interpretation and review of laboratory results Abnormal [facility] MCH (RBC) [Entitic mass] 32.2 pg 26.0 - 34.0 pg [facility] MCHC (RBC) [Mass/Vol] 33.3 g/dL 30.5 - 36.0 g/dL [facility] MCV (RBC) [Entitic vol] 96.7 fL 80.0 - 100.0 fL [facility] Nucleated RBC (Bld) [#/Vol] NINF [facility] Platelet mean volume (Bld) [Entitic vol] 10.6 fL 9.0 - 12.7 fL [facility] Platelets (Bld) [#/Vol] 265 10*3/uL [facility] RBC (Bld) [#/Vol] 4.29 10*6/uL 3.90 - 5.2 0 m/uL [facility] WBC (Bld) [#/Vol] 12.61 10*3/uL [facility] Erythrocyte distribution width (RBC) [Ratio] 14.5 % Normal 11.5-15.0 [facility] Comment on above: Order Comment: Speci men Type: BLOOD SPECIMENOrdering Facility: [facility] Address: [address] [place] [address] Performed By: #### 5 8410-2 ####[facility] LABCLIA [id number] [place] [address] Hematocrit (Bld) [Volume fraction] 41.5 % Normal 36.0-46.0 [facility] Comment on above: Order Comment: Speci men Type: BLOOD SPECIMENOrdering Facility: [facility] Address: [address] [place] [address] Performed By: #### 5 8410-2 ####[facility] LABCLIA [id number] [place] [address] Hemoglobin (Bld) [Mass/Vol] 13.8 g/dL Normal 11.5-15.5 [facility] Comment on above: Order Comment: Speci men Type: BLOOD SPECIMENOrdering Facility: [facility] Address: [address] [place] [address] Performed By: #### 5 8410-2 ####[facility] LABCLIA [id number] [place] [address] MCH (RBC) [Entitic mass] 32.2 pg Normal 26.0-34.0 [facility] Comment on above: Order Comment: Speci men Type: BLOOD SPECIMENOrdering Facility: [facility] Address: [address] [place] [address] Performed By: #### 5 8410-2 ####[facility] LABCLIA [id number] [place] [address] MCHC (RBC) [Mass/Vol] 33.3 g/dL Normal 30.5-36.0 [facility] Comment on above: Order Comment: Speci men Type: BLOOD SPECIMENOrdering Facility: [facility] Address: [address] [place] [address] Performed By: #### 5 8410-2 ####[facility] LABCLIA [id number] [place] [address] MCV (RBC) [Entitic vol] 96.7 fL Normal 80.0-100.0 [facility] Comment on above: Order Comment: Speci men Type: BLOOD SPECIMENOrdering Facility: [facility] Address: [address] [place] [address] Performed By: #### 5 8410-2 ####[facility] LABIA [id number] [place] [address] Nucleated RBC (Bld) [#/Vol] 10*3/uL Normal <0.01 [facility] Comment on above: Order Comment: Speci men Type: BLOOD SPECIMENOrdering Facility: [facility] Address: [address] [place] [address] Performed By: #### 5 8410-2 ####[facility] LABIA [id number] [place] [address] Platelet mean volume (Bld) [Entitic vol] 10.6 fL Normal 9.0-12.7 [facility] Comment on above: Order Comment: Speci men Type: BLOOD SPECIMENOrdering Facility: [facility] Address: [address] [place] [address] Performed By: #### 5 8410-2 ####[facility] LABIA [id number] [place] [address] Platelets (Bld) [#/Vol] 265 10*3/uL Normal 150-400 [facility] Comment on above: Order Comment: Speci men Type: BLOOD SPECIMENOrdering Facility: [facility] Address: [address] [place] [address] Performed By: #### 5 8410-2 ####[facility] LABCLIA [id number] [place] [address] RBC (Bld) [#/Vol] 4.29 10*6/uL Normal 3.90-5.20 [facility] Comment on above: Order Comment: Speci men Type: BLOOD SPECIMENOrdering Facility: [facility] Address: [address] [place] [address] Performed By: #### 5 8410-2 ####[facility] LABCLIA [id number] [place] [address] WBC (Bld) [#/Vol] 12.61 10*3/uL High 3.70-11.00 [facility] Comment on above: Order Comment: Speci men Type: BLOOD SPECIMENOrdering Facility: [facility] Address: [address] [place] [address] Performed By: #### 5 8410-2 ####[facility] LABCLIA [id number] [place] [address] CRP [facility] CRP [Mass/Vol] mg/L Normal <0.9 [facility] Comment on above: Order Comment: Speci men Type: BLOOD SPECIMENOrdering Facility: [facility] Address: [address] [place] [address] Performed By: #### 1 988-5, 2132-9 ####[facility] LABCLIA [id number] [place] [id number] [place] [facility] [place] Comprehensive metabolic 2000 panelOrdered By: Josse Merlos on 01-11-2025 Albumin [Mass/Vol] 3.9 g/dL 3.9 - 4.9 g/dL [facility] ALP [Catalytic activity/Vol] 83 U/L 34 - 123 U/L [facility] ALT [Catalytic activity/Vol] 42 U/L High 7 - 38 U/L [facility] Anion gap [Moles/Vol] 10 mmol/L 8 - 15 mmol/L [facility] AST [Catalytic activity/Vol] 22 U/L 13 - 35 U/L [facility] Bilirubin [Mass/Vol] 0.2 mg/dL 0.2 - 1 .3 mg/dL [facility] Calcium [Mass/Vol] 9.7 mg/dL 8.5 - 10. 2 mg/dL [facility] Chloride [Moles/Vol] 103 mmol/L 98 - 10 7 mmol/L [facility] CO2 [Moles/Vol] 23 mmol/L 22 - 30 mmol/L [facility] Creatinine [Mass/Vol] 0.50 mg/dL Low 0.58 - 0.96 mg/dL [facility] GFR/1.73 sq M.predicted among non-blacks MDRD (S/P/Bld) [Vol rate/Area] 119 mL/min/{1.73_m2} - PINF [facility] Comment on above: Estimated Glomerular [...] 221 mg/dL High 74 - 99 mg/dL [facility] Comment on above: The [place] Diabete s Association (ADA) provides guidance for [...] Standards of Medical Care in Diabetes 2016, [place] Diabetes Association. Diabetes Care. 2016.39(Suppl 1). Interpretation and review of laboratory results Abnormal [facility] Potassium [Moles/Vol] 4.1 mmol/L 3.7 - 5.1 mmol/L [facility] Protein [Mass/Vol] 6.8 g/dL 6.3 - 8.0 g/dL [facility] Sodium [Moles/Vol] 136 mmol/L 136 - 144 mmol/L [facility] Urea nitrogen [Mass/Vol] 15 mg/dL 7 - 21 mg/dL [facility] Comprehensive metabolic 2000 panelon 01-11-2025 Albumin [Mass/Vol] 3.9 g/dL Normal 3.9-4.9 [facility] Comment on above: Order Comment: Speci men Type: BLOOD SPECIMENOrdering Facility: [facility] Address: [address] [place] [address] Performed By: #### 2 4323-8 ####[facility] LABCLIA [id number] [place] [address] ALP [Catalytic activity/Vol] 83 U/L Normal 34-123 [facility] Comment on above: Order Comment: Speci men Type: BLOOD SPECIMENOrdering Facility: [facility] Address: [address] [place] [address] Performed By: #### 2 4323-8 ####[facility] LABCLIA [id number] [place] [address] ALT [Catalytic activity/Vol] 42 U/L High 7-38 [facility] Comment on above: Order Comment: Speci men Type: BLOOD SPECIMENOrdering Facility: [facility] Address: [address] [place] [address] Performed By: #### 2 4323-8 ####[facility] LABCLIA [id number] [place] [address] Anion gap [Moles/Vol] 10 mmol/L Normal 8-15 [facility] Comment on above: Order Comment: Speci men Type: BLOOD SPECIMENOrdering Facility: [facility] Address: [address] [place] [address] Performed By: #### 2 4323-8 ####[facility] LABCLIA [id number] [place] [address] AST [Catalytic activity/Vol] 22 U/L Normal 13-35 [facility] Comment on above: Order Comment: Speci men Type: BLOOD SPECIMENOrdering Facility: [facility] Address: [address] [place] [address] Performed By: #### 2 4323-8 ####[facility] LABCLIA [id number] [place] [address] Bilirubin [Mass/Vol] 0.2 mg/dL Normal 0.2-1.3 [facility] Comment on above: Order Comment: Speci men Type: BLOOD SPECIMENOrdering Facility: [facility] Address: [address] [place] [address] Performed By: #### 2 4323-8 ####[facility] LABCLIA [id number] [place] [address] Calcium [Mass/Vol] 9.7 mg/dL Normal 8.5-10.2 [facility] Comment on above: Order Comment: Speci men Type: BLOOD SPECIMENOrdering Facility: [facility] Address: [address] [place] [address] Performed By: #### 2 4323-8 ####[facility] LABCLIA [id number] [place] [address] Chloride [Moles/Vol] 103 mmol/L Normal 98-107 [facility] Comment on above: Order Comment: Speci men Type: BLOOD SPECIMENOrdering Facility: [facility] Address: [address] [place] [address] Performed By: #### 2 4323-8 ####[facility] LABCLIA [id number] [place] [address] CO2 [Moles/Vol] 23 mmol/L Normal 22-30 [facility] Comment on above: Order Comment: Speci men Type: BLOOD SPECIMENOrdering Facility: [facility] Address: [address] [place] [address] Performed By: #### 2 4323-8 ####[facility] LABCLIA [id number] [place] [address] Creatinine [Mass/Vol] 0.50 mg/dL Low 0.58-0.96 [facility] Comment on above: Order Comment: Semaj cortés Type: BLOOD SPECIMENOrdering Facility: [facility] Address: [address] [place] [address] Performed By: #### 2 4323-8 ####[facility] LABCLIA [id number] [place] [address] eGFRcr SerPlBld CKD-EPI 2020 119 mL/min/1.73m??? Normal >=60 [facility] Comment on above: Order Comment: Semaj cortés Type: BLOOD SPECIMENOrdering Facility: [facility] Address: [address] [place] [address] Result Comment: Erin mated Glomerular Filtration Rate [...] actual GFR. Performed By: #### 2 4323-8 ####[facility] LABCLIA [id number] [place] [address] Glucose [Mass/Vol] 221 mg/dL High 74-99 [facility] Comment on above: Order Comment: Semaj cortés Type: BLOOD SPECIMENOrdering Facility: [facility] Address: [address] [address] Result Comment: The [place] Diabetes Association (ADA) provides guidance for cutoff [...] Standards of Medical Care in Diabetes 2016, [place] Diabetes Association. Diabetes Care. 2016.39(Suppl 1). Performed By: #### 2 4323-8 ####[facility] LABCLIA [id number] [place] [address] Potassium [Moles/Vol] 4.1 mmol/L Normal 3.7-5.1 [facility] Comment on above: Order Comment: Speci men Type: BLOOD SPECIMENOrdering Facility: [facility] Address: [address] [place] [address] Performed By: #### 2 4323-8 ####[facility] LABIA [id number] [place] [address] Protein [Mass/Vol] 6.8 g/dL Normal 6.3-8.0 [facility] Comment on above: Order Comment: Speci men Type: BLOOD SPECIMENOrdering Facility: [facility] Address: [address] [place] [address] Performed By: #### 2 4323-8 ####[facility] LABCLIA [id number] [place] [address] Sodium [Moles/Vol] 136 mmol/L Normal 136-144 [facility] Comment on above: Order Comment: Speci men Type: BLOOD SPECIMENOrdering Facility: [facility] Address: [address] [place] [address] Performed By: #### 2 4323-8 ####[facility] LABCLIA [id number] [place] [address] Urea nitrogen [Mass/Vol] 15 mg/dL Normal 7-21 [facility] Comment on above: Order Comment: Speci men Type: BLOOD SPECIMENOrdering Facility: [facility] Address: [address] [address] Performed By: #### 2 4323-8 ####[facility] LABCLIA [id number] [place] [address] ESR Westergren method (Bld) [Velocity]on 01-11-2025 ESR (Bld) [Velocity] 34 mm/h High 0-20 [facility] Comment on above: Order Comment: Speci men Type: BLOOD SPECIMENOrdering Facility: [facility] Address: [address] [place] [address] Performed By: #### 4 537-7 ####[facility] LABCLIA [id number] [place] [address] [place] HBV core Ab Ser Qlon 025 HBV core Ab Ql (S) Negative Normal Negative [facility] Comment on above: Order Comment: Speci men Type: BLOOD SPECIMENOrdering Facility: [facility] Address: [address] [place] [address] Result Comment: No e vidence of current or past infection with Hepatitis B virus. Should recent infection be suspected, repeat testing may be considered 3-4 weeks after this draw. Performed By: #### 5 195-3, 85705-2, 10033-6 ####[facility] LABCLIA [id number] [address] OF [facility] HBV surface Ab Ql (S)on 12-23 HBV surface Ab Qn (S) 177.77 mIU/mL Normal [facility] Comment on above: Order Comment: Speci men Type: BLOOD SPECIMENOrdering Facility: [facility] Address: [address] [place] [address] Result Comment: <8 m IU/mL: No serological evidence of immunity to Hepatitis B Virus.>/= 8 to <12 mIU/mL: No serological evidence of immunity to Hepatitis B Virus.>/= 12 mIU/mL: Consistent with serological evidence of immunity to Hepatitis B Virus. Performed By: #### 5 195-3, 87820-9, 15078-8 ####[facility] LABCLIA [id number] [place] [id number] [place] HBV surface Ab Ser Qlon 12-23 HBV surface Ab Ql (S) Positive Normal [facility] Comment on above: Order Comment: Speci men Type: BLOOD SPECIMENOrdering Facility: [facility] Address: [address] [place] [address] Result Comment: Cons istent with serological evidence of immunity to Hepatitis B Virus. Performed By: #### 5 195-3, 90517-6, 35716-1 ####[facility] LABCLIA [id number] [place] [address] [place] HBV surface Ag Ser Qlon 12-23 HBV surface Ag Ql (S) Negative Normal Negative [facility] Comment on above: Order Comment: Speci men Type: BLOOD SPECIMENOrdering Facility: [facility] Address: [address] [place] [address] Performed By: #### 5 195-3, 06824-4, 06953-4 ####[facility] LABCLIA [id number] [place] [address] [place] HCV Ab Ser Qlon 01-11-2025 HCV Ab Ql (S) Negative Normal Negative [facility] Comment on above: Order Comment: Speci men Type: BLOOD SPECIMENOrdering Facility: [facility] Address: [address] [place] [address] Result Comment: The result suggests no evidence of infection with Hepatitis C virus. Should recent infection be suspected, repeat testing may be considered 4-6 weeks after this draw. Performed By: #### 1 6128-1 ####[facility] LABIA [id number] [place] [address] [place] Vit B12 SerPl-mCncon 025 Cobalamin (Vitamin B12) [Mass/Vol] 710 pg/mL Normal 232-1245 [facility] Comment on above: Order Comment: Speci men Type: BLOOD SPECIMENOrdering Facility: [facility] Address: [address] [place] [address] Performed By: #### 1 988-5, 2132-9 ####[facility] LABCLIA [id number] [place] [id number] [place] CBC W Auto Differential pane l (Bld)on 11-29-2024 Basophils (Bld) [#/Vol] 0.09 10*3/uL Normal <0.11 [facility] Comment on above: Order Comment: Speci men Type: BLOOD SPECIMENOrdering Facility: [facility] Address: [address] [place] [address] Performed By: #### 5 7021-8 ####[facility] LABCLIA [id number] [place] [address] Basophils/100 WBC (Bld) 0.7 % Normal [facility] Comment on above: Order Comment: Speci men Type: BLOOD SPECIMENOrdering Facility: [facility] Address: [address] [place] [address] Performed By: #### 5 7021-8 ####[facility] LABCLIA [id number] [place] [address] Differential cell count method Nom (Bld) Auto Normal [facility] Comment on above: Order Comment: Speci men Type: BLOOD SPECIMENOrdering Facility: [facility] Address: [address] [place] [address] Performed By: #### 5 7021-8 ####[facility] LABCLIA [id number] [place] [address] Eosinophils (Bld) [#/Vol] 0.09 10*3/uL Normal <0.46 [facility] Comment on above: Order Comment: Speci men Type: BLOOD SPECIMENOrdering Facility: [facility] Address: [address] [place] [address] Performed By: #### 5 7021-8 ####[facility] LABCLIA [id number] [place] [address] Eosinophils/100 WBC (Bld) 0.7 % Normal [facility] Comment on above: Order Comment: Speci men Type: BLOOD SPECIMENOrdering Facility: [facility] Address: [address] [place] [address] Performed By: #### 5 7021-8 ####[facility] LABCLIA [id number] [place] [address] Erythrocyte distribution width (RBC) [Ratio] 14.8 % Normal 11.5-15.0 [facility] Comment on above: Order Comment: Speci men Type: BLOOD SPECIMENOrdering Facility: [facility] Address: [address] [place] [address] Performed By: #### 5 7021-8 ####[facility] LABCLIA [id number] [place] [address] Hematocrit (Bld) [Volume fraction] 42.9 % Normal 36.0-46.0 [facility] Comment on above: Order Comment: Speci men Type: BLOOD SPECIMENOrdering Facility: [facility] Address: [address] [place] [address] Performed By: #### 5 7021-8 ####[facility] LABCLIA [id number] [place] [address] Hemoglobin (Bld) [Mass/Vol] 14.0 g/dL Normal 11.5-15.5 [facility] Comment on above: Order Comment: Speci men Type: BLOOD SPECIMENOrdering Facility: [facility] Address: [address] [place] [address] Performed By: #### 5 7021-8 ####[facility] LABCLIA [id number] [place] [address] Immature granulocytes (Bld) [#/Vol] 0.18 10*3/uL High <0.10 [facility] Comment on above: Order Comment: Speci men Type: BLOOD SPECIMENOrdering Facility: [facility] Address: [address] [place] [address] Performed By: #### 5 7021-8 ####[facility] LABCLIA [id number] [place] [address] Immature granulocytes/100 WBC (Bld) 1.5 % Normal [facility] Comment on above: Order Comment: Speci men Type: BLOOD SPECIMENOrdering Facility: [facility] Address: [address] [place] [address] Performed By: #### 5 7021-8 ####[facility] LABCLIA [id number] [place] [address] Lymphocytes (Bld) [#/Vol] 1.99 10*3/uL Normal 1.00-4.00 [facility] Comment on above: Order Comment: Speci men Type: BLOOD SPECIMENOrdering Facility: [facility] Address: [address] [place] [address] Performed By: #### 5 7021-8 ####[facility] LABIA [id number] [place] [address] Lymphocytes/100 WBC (Bld) 16.4 % Normal [facility] Comment on above: Order Comment: Speci men Type: BLOOD SPECIMENOrdering Facility: [facility] Address: [address] [place] [address] Performed By: #### 5 7021-8 ####[facility] LABCLIA [id number] [place] [address] MCH (RBC) [Entitic mass] 31.7 pg Normal 26.0-34.0 [facility] Comment on above: Order Comment: Speci men Type: BLOOD SPECIMENOrdering Facility: [facility] Address: [address] [place] [address] Performed By: #### 5 7021-8 ####[facility] LABIA [id number] [place] [address] MCHC (RBC) [Mass/Vol] 32.6 g/dL Normal 30.5-36.0 [facility] Comment on above: Order Comment: Speci men Type: BLOOD SPECIMENOrdering Facility: [facility] Address: [address] [place] [address] Performed By: #### 5 7021-8 ####[facility] LABCLIA [id number] [place] [address] MCV (RBC) [Entitic vol] 97.1 fL Normal 80.0-100.0 [facility] Comment on above: Order Comment: Speci men Type: BLOOD SPECIMENOrdering Facility: [facility] Address: [address] [place] [address] Performed By: #### 5 7021-8 ####[facility] LABCLIA [id number] [place] [address] Monocytes (Bld) [#/Vol] 0.67 10*3/uL Normal <0.87 [facility] Comment on above: Order Comment: Speci men Type: BLOOD SPECIMENOrdering Facility: [facility] Address: [address] [place] [address] Performed By: #### 5 7021-8 ####[facility] LABCLIA [id number] [place] [address] Monocytes/100 WBC (Bld) 5.5 % Normal [facility] Comment on above: Order Comment: Speci men Type: BLOOD SPECIMENOrdering Facility: [facility] Address: [address] [place] [address] Performed By: #### 5 7021-8 ####[facility] LABCLIA [id number] [place] [address] Neutrophils (Bld) [#/Vol] 9.15 10*3/uL High 1.45-7.50 [facility] Comment on above: Order Comment: Speci men Type: BLOOD SPECIMENOrdering Facility: [facility] Address: [address] [place] [address] Performed By: #### 5 7021-8 ####[facility] LABCLIA [id number] [place] [address] Neutrophils/100 WBC (Bld) 75.2 % Normal [facility] Comment on above: Order Comment: Speci men Type: BLOOD SPECIMENOrdering Facility: [facility] Address: [address] [place] [address] Performed By: #### 5 7021-8 ####[facility] LABCLIA [id number] [place] [address] Nucleated RBC (Bld) [#/Vol] 10*3/uL Normal <0.01 [facility] Comment on above: Order Comment: Speci men Type: BLOOD SPECIMENOrdering Facility: [facility] Address: [address] [place] [address] Performed By: #### 5 7021-8 ####[facility] LABCLIA [id number] [place] [address] Nucleated RBC/100 WBC (Bld) [Ratio] 0.0 /100 WBC Normal [facility] Comment on above: Order Comment: Speci men Type: BLOOD SPECIMENOrdering Facility: [facility] Address: [address] [place] [address] Performed By: #### 5 7021-8 ####[facility] LABCLIA [id number] [place] [address] Platelet mean volume (Bld) [Entitic vol] 9.7 fL Normal 9.0-12.7 [facility] Comment on above: Order Comment: Speci men Type: BLOOD SPECIMENOrdering Facility: [facility] Address: [address] [place] [address] Performed By: #### 5 7021-8 ####[facility] LABCLIA [id number] [place] [address] Platelets (Bld) [#/Vol] 281 10*3/uL Normal 150-400 [facility] Comment on above: Order Comment: Speci men Type: BLOOD SPECIMENOrdering Facility: [facility] Address: [address] [place] [address] Performed By: #### 5 7021-8 ####[facility] LABCLIA [id number] [place] [address] RBC (Bld) [#/Vol] 4.42 10*6/uL Normal 3.90-5.20 [facility] Comment on above: Order Comment: Speci men Type: BLOOD SPECIMENOrdering Facility: [facility] Address: [address] [place] [address] Performed By: #### 5 7021-8 ####[facility] LABCLIA [id number] [place] [address] WBC (Bld) [#/Vol] 12.17 10*3/uL High 3.70-11.00 [facility] Comment on above: Order Comment: Speci men Type: BLOOD SPECIMENOrdering Facility: [facility] Address: [address] [place] [address] Performed By: #### 5 7021-8 ####[facility] LABIA [id number] [place] [address] CNOVSPon 11-29-2024 CNOVSP Normal [facility] Comprehensive metabolic 2000 panelon 11-29-2024 Albumin [Mass/Vol] 4.1 g/dL Normal 3.9-4.9 [facility] Comment on above: Order Comment: Speci men Type: BLOOD SPECIMENOrdering Facility: [facility] Address: [address] [place] [address] Performed By: #### 2 4323-8 ####[facility] LABCLIA [id number] [place] [address] ALP [Catalytic activity/Vol] 61 U/L Normal 34-123 [facility] Comment on above: Order Comment: Speci men Type: BLOOD SPECIMENOrdering Facility: [facility] Address: [address] [place] [address] Performed By: #### 2 4323-8 ####[facility] LABCLIA [id number] [place] [address] ALT [Catalytic activity/Vol] 39 U/L High 7-38 [facility] Comment on above: Order Comment: Speci men Type: BLOOD SPECIMENOrdering Facility: [facility] Address: [address] [place] [address] Performed By: #### 2 4323-8 ####[facility] LABCLIA [id number] [place] [address] Anion gap [Moles/Vol] 13 mmol/L Normal 8-15 [facility] Comment on above: Order Comment: Speci men Type: BLOOD SPECIMENOrdering Facility: [facility] Address: [address] [place] [address] Performed By: #### 2 4323-8 ####[facility] LABCLIA [id number] [place] [address] AST [Catalytic activity/Vol] 16 U/L Normal 13-35 [facility] Comment on above: Order Comment: Speci men Type: BLOOD SPECIMENOrdering Facility: [facility] Address: [address] [place] [address] Performed By: #### 2 4323-8 ####[facility] LABCLIA [id number] [place] [address] Bilirubin [Mass/Vol] 0.2 mg/dL Normal 0.2-1.3 [facility] Comment on above: Order Comment: Speci men Type: BLOOD SPECIMENOrdering Facility: [facility] Address: [address] [place] [address] Performed By: #### 2 4323-8 ####[facility] LABCLIA [id number] [place] [address] Calcium [Mass/Vol] 9.7 mg/dL Normal 8.5-10.2 [facility] Comment on above: Order Comment: Speci men Type: BLOOD SPECIMENOrdering Facility: [facility] Address: [address] [place] [address] Performed By: #### 2 4323-8 ####[facility] LABCLIA [id number] [place] [address] Chloride [Moles/Vol] 102 mmol/L Normal 98-107 [facility] Comment on above: Order Comment: Speci men Type: BLOOD SPECIMENOrdering Facility: [facility] Address: [address] [place] [address] Performed By: #### 2 4323-8 ####[facility] LABCLIA [id number] [place] [address] CO2 [Moles/Vol] 23 mmol/L Normal 22-30 [facility] Comment on above: Order Comment: Speci men Type: BLOOD SPECIMENOrdering Facility: [facility] Address: [address] [place] [address] Performed By: #### 2 4323-8 ####[facility] LABCLIA [id number] [place] [address] Creatinine [Mass/Vol] 0.58 mg/dL Normal 0.58-0.96 [facility] Comment on above: Order Comment: Speci men Type: BLOOD SPECIMENOrdering Facility: [facility] Address: [address] [place] [address] Performed By: #### 2 4323-8 ####[facility] LABCLIA [id number] [place] [address] Creatinine and Glomerular filtration rate.predicted panel (S/P/Bld) 115 mL/min/1.73m??? Normal >=60 [facility] Comment on above: Order Comment: Speci men Type: BLOOD SPECIMENOrdering Facility: [facility] Address: [address] [place] [address] Result Comment: Erin mated Glomerular Filtration Rate [...] actual GFR. Performed By: #### 2 4323-8 ####[facility] LABIA [id number] [place] [address] Glucose [Mass/Vol] 233 mg/dL High 74-99 [facility] Comment on above: Order Comment: Speci men Type: BLOOD SPECIMENOrdering Facility: [facility] Address: [address] [place], [place] [address] Result Comment: The [place] Diabetes Association (ADA) provides guidance for cutoff [...] Standards of Medical Care in Diabetes 2016, [place] [employer]. Diabetes Care. 2016.39(Suppl 1). Performed By: #### 2 4323-8 ####[facility] LABCLIA [id number] [place] [address] Potassium [Moles/Vol] 4.0 mmol/L Normal 3.7-5.1 [facility] Comment on above: Order Comment: Speci men Type: BLOOD SPECIMENOrdering Facility: [facility] Address: [address] [place] [address] Performed By: #### 2 4323-8 ####[facility] LABCLIA [id number] [place] [address] Protein [Mass/Vol] 7.0 g/dL Normal 6.3-8.0 [facility] Comment on above: Order Comment: Semaj men Type: BLOOD SPECIMENOrdering Facility: [facility] Address: [address] [place] [address] Performed By: #### 2 4323-8 ####[facility] LABCLIA [id number] [place] [address] Sodium [Moles/Vol] 138 mmol/L Normal 136-144 [facility] Comment on above: Order Comment: Speci men Type: BLOOD SPECIMENOrdering Facility: [facility] Address: [address] [place] [address] Performed By: #### 2 4323-8 ####[facility] LABCLIA [id number] [place] [address] Urea nitrogen [Mass/Vol] 16 mg/dL Normal 7-21 [facility] Comment on above: Order Comment: Speci men Type: BLOOD SPECIMENOrdering Facility: [facility] Address: [address] [place] [address] Performed By: #### 2 4323-8 ####[facility] LABCLIA [id number] [place] [address] Ferritin SerPl-mCncon 2024 Ferritin [Mass/Vol] 63.6 ng/mL Normal 14.7-205.1 [facility] Comment on above: Order Comment: Speci men Type: BLOOD SPECIMENOrdering Facility: [facility] Address: [address] [place] [address] Performed By: #### 2 284-8, 47994-7, 2276-4, 2132-9 ####[facility] LABCLIA [id number] [place] [address] [place] Folate SerPl-mCncon 11-30-19 25 Folate [Mass/Vol] ng/mL Normal >4.7 [facility] Comment on above: Order Comment: Speci men Type: BLOOD SPECIMENOrdering Facility: [facility] Address: [address] [place] [address] Result Comment: A re sult of > 20 ng/mL is not necessarily indicative of a pathologic or treatable condition: it reflects a limitation of the test methodology.Assay reference range: 4.8 to 24.2 ng/mL. Suitable for detection of folate deficiency.Reference:Folate III (Folate III) [package insert V 1.0 [place]ese]. [facility], [place], [place]: March 2015. Performed By: #### 2 284-8, 23660-1, 2276-4, 2132-9 ####[facility] LABCLIA [id number] [place] [address] [place] IMMUNOGLOBULINS,IGG,IGA,IGMo n 11-29-2024 IgA [Mass/Vol] 169 mg/dL Normal 70-400 [facility] Comment on above: Order Comment: Speci men Type: BLOOD SPECIMENOrdering Facility: [facility] Address: [address] [place] [address] Performed By: #### S ERIMM ####[facility] LABCLIA [id number] [place] [address] [place] IgG [Mass/Vol] 596 mg/dL Low 700-1600 [facility] Comment on above: Order Comment: Speci men Type: BLOOD SPECIMENOrdering Facility: [facility] Address: [address] [place] [address] Performed By: #### S ERIMM ####[facility] LABCLIA [id number] [place] [address] [place] IgM [Mass/Vol] 410 mg/dL High 40-230 [facility] Comment on above: Order Comment: Speci men Type: BLOOD SPECIMENOrdering Facility: [facility] Address: [address] [place] [address] Performed By: #### S ERIMM ####[facility] LABCLIA [id number] [place] [address] [place] Iron and Iron binding capaci ty panelon 11-29-2024 Iron [Mass/Vol] 154 ug/dL Normal 41-186 [facility] Comment on above: Order Comment: Speci men Type: BLOOD SPECIMENOrdering Facility: [facility] Address: [address] [place] [address] Performed By: #### 2 284-8, 41463-3, 6-4, 9 ####[facility] LABIA [id number] [address] [address] [place] Iron binding capacity [Mass/Vol] 363 ug/dL Normal 232-386 [facility] Comment on above: Order Comment: Speci men Type: BLOOD SPECIMENOrdering Facility: [facility] Address: [address] [place], [place] [address] Performed By: #### 2 284-8, 11766-9, 2275-4, 2132-01 ####[facility] [id number] [address] [address] [place] Iron/TIBC [Molar ratio] 42.4 % Normal 15.0-57.0 [facility] Comment on above: Order Comment: Speci men Type: BLOOD SPECIMENOrdering Facility: [facility] Address: [address] [place] [address] Performed By: #### 2 284-8, 24288-7, 6-4, 2132-01 ####[facility] [id number] [address] [address] [place] Vit B12 SerPl-mCncon 09-2 025 Cobalamin (Vitamin B12) [Mass/Vol] 775 pg/mL Normal 232-1245 [facility] Comment on above: Order Comment: Speci men Type: BLOOD SPECIMENOrdering Facility: [facility] Address: [address] [place], [place] [address] Performed By: #### 2 284-8, 31757-7, 2275-4, 9 ####[facility] LABIA [id number] [address] [address] [place] CNPNon 11-20-2024 CNPN Normal [facility] CNPNon 11-15-2024 CNPN Normal [facility] CNPNon 10-06-2024 CNPN Normal [facility] 25(OH)D3 SerPl-mCncon 2024 25-hydroxyvitamin D3 [Mass/Vol] 30.9 ng/mL Low 31.0-80.0 [facility] Comment on above: Order Comment: Speci men Type: BLOOD SPECIMENOrdering Facility: [facility] Address: [address] [place] [address] Result Comment: Clas sification of 25 [place] Vitamin D status:Deficiency/Insufficiency: < or = 30 ng/ml.Sufficiency/Optimal Levels: 31-80 ng/mLToxicity: > 100 ng/mL.Test performed by chemiluminescent immunoassay. Performed By: #### 1 989-3 ####[facility] LABCLIA [id number] [place] [address] [place] 25-hydroxyvitamin D3 [Mass/V ol]on 10-02-2024 Interpretation and review of laboratory results Abnormal [facility] The reference range interval was based on an analysis of samples from healthy adults and may not pertain to children from 0-18 years old. [facility] C-REACTIVE PROTEINon 025 CRP [Mass/Vol] mg/dL NINF - 0.9 mg/dL [facility] CBC panel Auto (Bld)on 10-02 Erythrocyte distribution width (RBC) [Ratio] 16.2 % High 11.5 - 15.0 % [facility] Hematocrit (Bld) [Volume fraction] 41.3 % 36.0 - 46.0 % [facility] Hemoglobin (Bld) [Mass/Vol] 13.7 g/dL 11.5 - 15.5 g/dL [facility] Interpretation and review of laboratory results Abnormal [facility] MCH (RBC) [Entitic mass] 31.1 pg 26.0 - 34.0 pg [facility] MCHC (RBC) [Mass/Vol] 33.2 g/dL 30.5 - 36.0 g/dL [facility] MCV (RBC) [Entitic vol] 93.7 fL 80.0 - 100.0 fL [facility] Nucleated RBC (Bld) [#/Vol] NINF [facility] Platelet mean volume (Bld) [Entitic vol] 10.1 fL 9.0 - 12.7 fL [facility] Platelets (Bld) [#/Vol] 265 10*3/uL [facility] RBC (Bld) [#/Vol] 4.41 10*6/uL 3.90 - 5.2 0 m/uL [facility] WBC (Bld) [#/Vol] 10.07 10*3/uL [facility] Erythrocyte distribution width (RBC) [Ratio] 16.2 % High 11.5-15.0 [facility] Comment on above: Order Comment: Speci men Type: BLOOD SPECIMENOrdering Facility: [facility] Address: [address] [place] [address] Performed By: #### 5 8410-2 ####[facility] LABCLIA [id number] [place] [address] Hematocrit (Bld) [Volume fraction] 41.3 % Normal 36.0-46.0 [facility] Comment on above: Order Comment: Speci men Type: BLOOD SPECIMENOrdering Facility: [facility] Address: [address] [place] [address] Performed By: #### 5 8410-2 ####[facility] LABCLIA [id number] [place] [address] Hemoglobin (Bld) [Mass/Vol] 13.7 g/dL Normal 11.5-15.5 [facility] Comment on above: Order Comment: Speci men Type: BLOOD SPECIMENOrdering Facility: [facility] Address: [address] [place] [address] Performed By: #### 5 8410-2 ####[facility] LABCLIA [id number] [place] [address] MCH (RBC) [Entitic mass] 31.1 pg Normal 26.0-34.0 [facility] Comment on above: Order Comment: Speci men Type: BLOOD SPECIMENOrdering Facility: [facility] Address: [address] [place] [address] Performed By: #### 5 8410-2 ####[facility] LABCLIA [id number] [place] [address] MCHC (RBC) [Mass/Vol] 33.2 g/dL Normal 30.5-36.0 [facility] Comment on above: Order Comment: Speci men Type: BLOOD SPECIMENOrdering Facility: [facility] Address: [address] [place] [address] Performed By: #### 5 8410-2 ####[facility] LABIA [id number] [place] [address] MCV (RBC) [Entitic vol] 93.7 fL Normal 80.0-100.0 [facility] Comment on above: Order Comment: Speci men Type: BLOOD SPECIMENOrdering Facility: [facility] Address: [address] [place] [address] Performed By: #### 5 8410-2 ####[facility] LABIA [id number] [place] [address] Nucleated RBC (Bld) [#/Vol] 10*3/uL Normal <0.01 [facility] Comment on above: Order Comment: Speci men Type: BLOOD SPECIMENOrdering Facility: [facility] Address: [address] [place] [address] Performed By: #### 5 8410-2 ####[facility] LABIA [id number] [place] [address] Platelet mean volume (Bld) [Entitic vol] 10.1 fL Normal 9.0-12.7 [facility] Comment on above: Order Comment: Speci men Type: BLOOD SPECIMENOrdering Facility: [facility] Address: [address] [place] [address] Performed By: #### 5 8410-2 ####[facility] LABIA [id number] [place] [address] Platelets (Bld) [#/Vol] 265 10*3/uL Normal 150-400 [facility] Comment on above: Order Comment: Speci men Type: BLOOD SPECIMENOrdering Facility: [facility] Address: [address] [place] [address] Performed By: #### 5 8410-2 ####[facility] LABCLIA [id number] [place] [address] RBC (Bld) [#/Vol] 4.41 10*6/uL Normal 3.90-5.20 [facility] Comment on above: Order Comment: Speci men Type: BLOOD SPECIMENOrdering Facility: [facility] Address: [address] [place] [address] Performed By: #### 5 8410-2 ####[facility] LABCLIA [id number] [place] [address] WBC (Bld) [#/Vol] 10.07 10*3/uL Normal 3.70-11.00 [facility] Comment on above: Order Comment: Speci men Type: BLOOD SPECIMENOrdering Facility: [facility] Address: [address] [place] [address] Performed By: #### 5 8410-2 ####[facility] LABCLIA [id number] [place] [address] CRP SerPl-ncon 10-02-2024 CRP [Mass/Vol] mg/L Normal <0.9 [facility] Comment on above: Order Comment: Speci men Type: BLOOD SPECIMENOrdering Facility: [facility] Address: [address] [place] [address] Performed By: #### 1 988-5 ####[facility] LABCLIA [id number] [place] [id number] [place] CRP [Mass/Vol]on 10-02-2024 Interpretation and review of laboratory results Normal [facility] Comprehensive metabolic 2000 panelOrdered By: Josse Merlos on 10-02-2024 Albumin [Mass/Vol] 3.9 g/dL 3.9 - 4.9 g/dL [facility] ALP [Catalytic activity/Vol] 61 U/L 34 - 123 U/L [facility] ALT [Catalytic activity/Vol] 41 U/L High 7 - 38 U/L [facility] Anion gap [Moles/Vol] 14 mmol/L 8 - 15 mmol/L [facility] AST [Catalytic activity/Vol] 18 U/L 13 - 35 U/L [facility] Bilirubin [Mass/Vol] 0.2 mg/dL 0.2 - 1 .3 mg/dL [facility] Calcium [Mass/Vol] 9.6 mg/dL 8.5 - 10. 2 mg/dL [facility] Chloride [Moles/Vol] 107 mmol/L 98 - 10 7 mmol/L [facility] CO2 [Moles/Vol] 20 mmol/L Low 22 - 30 mmol/L [facility] Creatinine [Mass/Vol] 0.59 mg/dL 0.58 - 0.96 mg/dL [facility] GFR/1.73 sq M.predicted among non-blacks MDRD (S/P/Bld) [Vol rate/Area] 115 mL/min/{1.73_m2} - PINF [facility] Comment on above: Estimated Glomerular [...] 216 mg/dL High 74 - 99 mg/dL [facility] Comment on above: The [place] Diab[employer] s Association (ADA) provides guidance for [...] Standards of Medical Care in Diabetes 2016, [place] Diabetes Association. Diabetes Care. 2016.39(Suppl 1). Interpretation and review of laboratory results Abnormal [facility] Potassium [Moles/Vol] 4.1 mmol/L 3.7 - 5.1 mmol/L [facility] Protein [Mass/Vol] 6.8 g/dL 6.3 - 8.0 g/dL [facility] Sodium [Moles/Vol] 141 mmol/L 136 - 144 mmol/L [facility] Urea nitrogen [Mass/Vol] 19 mg/dL 7 - 21 mg/dL [facility] Comprehensive metabolic 2000 panelon 10-02-2024 Albumin [Mass/Vol] 3.9 g/dL Normal 3.9-4.9 [facility] Comment on above: Order Comment: Speci men Type: BLOOD SPECIMENOrdering Facility: [facility] Address: [address] [place] [address] Performed By: #### 2 4323-8 ####[facility] LABCLIA [id number] [place] [address] ALP [Catalytic activity/Vol] 61 U/L Normal 34-123 [facility] Comment on above: Order Comment: Speci men Type: BLOOD SPECIMENOrdering Facility: [facility] Address: [address] [address] Performed By: #### 2 4323-8 ####[facility] LABCLIA [id number] [place] [address] ALT [Catalytic activity/Vol] 41 U/L High 7-38 [facility] Comment on above: Order Comment: Speci men Type: BLOOD SPECIMENOrdering Facility: [facility] Address: [address] [address] Performed By: #### 2 4323-8 ####[facility] LABCLIA [id number] [place] [address] Anion gap [Moles/Vol] 14 mmol/L Normal 8-15 [facility] Comment on above: Order Comment: Speci men Type: BLOOD SPECIMENOrdering Facility: [facility] Address: [address] [address] Performed By: #### 2 4323-8 ####[facility] LABCLIA [id number] [place] [address] AST [Catalytic activity/Vol] 18 U/L Normal 13-35 [facility] Comment on above: Order Comment: Speci men Type: BLOOD SPECIMENOrdering Facility: [facility] Address: [address] [place] [address] Performed By: #### 2 4323-8 ####[facility] LABCLIA [id number] [place] [address] Bilirubin [Mass/Vol] 0.2 mg/dL Normal 0.2-1.3 [facility] Comment on above: Order Comment: Speci men Type: BLOOD SPECIMENOrdering Facility: [facility] Address: [address] [place] [address] Performed By: #### 2 4323-8 ####[facility] LABCLIA [id number] [place] [address] Calcium [Mass/Vol] 9.6 mg/dL Normal 8.5-10.2 [facility] Comment on above: Order Comment: Speci men Type: BLOOD SPECIMENOrdering Facility: [facility] Address: [address] [place] [address] Performed By: #### 2 4323-8 ####[facility] LABCLIA [id number] [place] [address] Chloride [Moles/Vol] 107 mmol/L Normal 98-107 [facility] Comment on above: Order Comment: Speci men Type: BLOOD SPECIMENOrdering Facility: [facility] Address: [address] [place] [address] Performed By: #### 2 4323-8 ####[facility] LABCLIA [id number] [place] [address] CO2 [Moles/Vol] 20 mmol/L Low 22-30 [facility] Comment on above: Order Comment: Speci men Type: BLOOD SPECIMENOrdering Facility: [facility] Address: [address] [place] [id number] Performed By: #### 2 4323-8 ####[facility] LABCLIA [id number] [place] [address] Creatinine [Mass/Vol] 0.59 mg/dL Normal 0.58-0.96 [facility] Comment on above: Order Comment: Speci men Type: BLOOD SPECIMENOrdering Facility: [facility] Address: [address] [place] [address] Performed By: #### 2 4323-8 ####[facility] LABCLIA [id number] [place] [address] Creatinine and Glomerular filtration rate.predicted panel (S/P/Bld) 115 mL/min/1.73m??? Normal >=60 [facility] Comment on above: Order Comment: Speci men Type: BLOOD SPECIMENOrdering Facility: [facility] Address: [address] [address] Result Comment: Erin mated Glomerular Filtration Rate [...] actual GFR. Performed By: #### 2 4323-8 ####[facility] LABCLIA [id number] [place] [address] Glucose [Mass/Vol] 216 mg/dL High 74-99 [facility] Comment on above: Order Comment: Speci men Type: BLOOD SPECIMENOrdering Facility: [facility] Address: [address] [place] [id number] Result Comment: The [place] Diabetes Association (ADA) provides guidance for cutoff [...] Standards of Medical Care in Diabetes 2016, [place] Diabetes Association. Diabetes Care. 2016.39(Suppl 1). Performed By: #### 2 4323-8 ####[facility] LABCLIA [id number] [place] [address] Potassium [Moles/Vol] 4.1 mmol/L Normal 3.7-5.1 [facility] Comment on above: Order Comment: Speci men Type: BLOOD SPECIMENOrdering Facility: [facility] Address: [address] [place] [address] Performed By: #### 2 4323-8 ####[facility] LABCLIA [id number] [place] [address] Protein [Mass/Vol] 6.8 g/dL Normal 6.3-8.0 [facility] Comment on above: Order Comment: Speci men Type: BLOOD SPECIMENOrdering Facility: [facility] Address: [address] [place] [address] Performed By: #### 2 4323-8 ####[facility] LABCLIA [id number] [place] [address] Sodium [Moles/Vol] 141 mmol/L Normal 136-144 [facility] Comment on above: Order Comment: Speci men Type: BLOOD SPECIMENOrdering Facility: [facility] Address: [address] [place] [address] Performed By: #### 2 4323-8 ####[facility] LABCLIA [id number] [place] [address] Urea nitrogen [Mass/Vol] 19 mg/dL Normal 7-21 [facility] Comment on above: Order Comment: Speci men Type: BLOOD SPECIMENOrdering Facility: [facility] Address: [address] [place], [place] [address] [address] Performed By: #### 2 4323-8 ####[facility] LABCLIA [id number] [place] [address] ESR Westergren method (Bld) [Velocity]on 10-02-2024 ESR (Bld) [Velocity] 28 mm/h High [facility] Interpretation and review of laboratory results Abnormal [facility] ESR (Bld) [Velocity] 28 mm/h High 0-20 [facility] Comment on above: Order Comment: Speci men Type: BLOOD SPECIMENOrdering Facility: [facility] Address: [address] [place] [address] Performed By: #### 4 537-7 ####[facility] LABCLIA [id number] [place] [id number] [place] VITAMIN D 25 HYDROXYon 10-02 25-hydroxyvitamin D3 [Mass/Vol] 30.9 ng/mL Low 31.0 - 80.0 ng/mL [facility] Comment on above: Classification of 25 [place] Vitamin D status: Deficiency/Insufficiency: < or = 30 ng/ml. Sufficiency/Optimal Levels: 31-80 ng/mL Toxicity: > 100 ng/mL. Test performed by chemiluminescent immunoassay. DNA EXTRACTION BLOODOrdered By: Dominga Araujo on 09-20-2024 CONCENTRATION (NG/UL) 189.3 ng/ul [facility] Total Yield 94.65 ug [facility] Comment on above: Specimens will be av ailable for 3 years from date of collection. To order testing on this specimen for [facility] patients, please place an [facility] order for DNA and RNA for Clinical Testing (SQNUCADD). To order for patients outside of the [facility] system, please request DNA and RNA for Clinical Testing, order code [id number]. If additional paperwork is required for testing, please email completed forms to . VOLUME (UL) OF DNA 500 uL [facility] CNOVon 09-19-2024 CNOV Normal [facility] DNA EXTRACTION BLOODon 09-19 CONCENTRATION (NG/UL) 189.3 ng/ul Normal [facility] Comment on above: Order Comment: Speci men Type: BLOOD SPECIMENOrdering Facility: [facility] Address: [address] [place] [address] Performed By: #### N UCBLD ####[facility] LIMSCLIA [id number] [place] [address] [place] TOTAL YIELD 94.65 ug Normal [facility] Comment on above: Order Comment: Speci men Type: BLOOD SPECIMENOrdering Facility: [facility] Address: [address] [place] [address] Result Comment: Spec imens will be available for 3 years from date of collection. To order testing on this specimen for [facility] patients, please place an [facility] order for DNA and RNA for Clinical Testing (SQNUCADD). To order for patients outside of the [facility] system, please request DNA and RNA for Clinical Testing, order code [id number].If additional paperwork is required for testing, please email completed forms to . Performed By: #### N UCBLD ####[facility] LIMSCLIA [id number] [place] [address] [place] VOLUME (UL) OF DNA 500 uL Normal [facility] Comment on above: Order Comment: Speci men Type: BLOOD SPECIMENOrdering Facility: [facility] Address: [address] [place] [address] Performed By: #### N UCBLD ####[facility] LIMSCLIA [id number] [place] [address] [place] CNPNon 09-18-2024 CNPN Normal [facility] CNPNon 09-13-2024 CNPN Normal [facility] CNOVSPon 09-06-2024 CNOVSP Normal [facility] CNPNon 09-06-2024 CNPN Normal [facility] IMMUNOGLOBULINS,IGG,IGA,IGMo n 09-06-2024 IgA [Mass/Vol] 163 mg/dL Normal 70-400 [facility] Comment on above: Order Comment: Speci men Type: BLOOD SPECIMENOrdering Facility: [facility] Address: [address] [place] [address] Performed By: #### S ERIMM ####[facility] LABCLIA [id number] [place] [address] [place] IgG [Mass/Vol] 599 mg/dL Low 700-1600 [facility] Comment on above: Order Comment: Speci men Type: BLOOD SPECIMENOrdering Facility: [facility] Address: [address] [place] [address] Performed By: #### S ERIMM ####[facility] LABCLIA [id number] [place] [address] [place] IgM [Mass/Vol] 387 mg/dL High 40-230 [facility] Comment on above: Order Comment: Speci men Type: BLOOD SPECIMENOrdering Facility: [facility] Address: [address] [place] [address] Performed By: #### S ERIMM ####[facility] LABCLIA [id number] [place] [address] [place] Laboratory - Chemistry and C hemistry - challengeon 09-06-2024 IgA [Mass/Vol] 163 mg/dL 70 - 400 mg/dL [facility] IgG [Mass/Vol] 599 mg/dL Low 700 - 1600 mg/dL [facility] IgM [Mass/Vol] 387 mg/dL High 40 - 230 mg/dL [facility] No Panel Informationon 09-06 Interpretation and review of laboratory results Abnormal [facility] CBC W Auto Differential pane l (Bld)on 08-29-2024 Basophils (Bld) [#/Vol] 0.06 10*3/uL Normal <0.11 [facility] Comment on above: Order Comment: Speci men Type: BLOOD SPECIMENOrdering Facility: [facility] Address: [address] [place] [address] Performed By: #### 5 7021-8 ####[facility] LABCLIA [id number] [place] [address] Basophils/100 WBC (Bld) 0.5 % Normal [facility] Comment on above: Order Comment: Speci men Type: BLOOD SPECIMENOrdering Facility: [facility] Address: [address] [place] [address] Performed By: #### 5 7021-8 ####[facility] LABCLIA [id number] [place] [address] Differential cell count method Nom (Bld) Auto Normal [facility] Comment on above: Order Comment: Speci men Type: BLOOD SPECIMENOrdering Facility: [facility] Address: [address] [place] [address] Performed By: #### 5 7021-8 ####[facility] LABCLIA [id number] [place] [address] Eosinophils (Bld) [#/Vol] 0.08 10*3/uL Normal <0.46 [facility] Comment on above: Order Comment: Speci men Type: BLOOD SPECIMENOrdering Facility: [facility] Address: [address] [place] [address] Performed By: #### 5 7021-8 ####[facility] LABCLIA [id number] [place] [address] Eosinophils/100 WBC (Bld) 0.6 % Normal [facility] Comment on above: Order Comment: Speci men Type: BLOOD SPECIMENOrdering Facility: [facility] Address: [address] [place] [address] Performed By: #### 5 7021-8 ####[facility] LABCLIA [id number] [place] [address] Erythrocyte distribution width (RBC) [Ratio] 16.0 % High 11.5-15.0 [facility] Comment on above: Order Comment: Speci men Type: BLOOD SPECIMENOrdering Facility: [facility] Address: [address] [place] [address] Performed By: #### 5 7021-8 ####[facility] LABCLIA [id number] [place] [address] Hematocrit (Bld) [Volume fraction] 42.9 % Normal 36.0-46.0 [facility] Comment on above: Order Comment: Speci men Type: BLOOD SPECIMENOrdering Facility: [facility] Address: [address] [place] [address] Performed By: #### 5 7021-8 ####[facility] LABCLIA [id number] [place] [address] Hemoglobin (Bld) [Mass/Vol] 13.8 g/dL Normal 11.5-15.5 [facility] Comment on above: Order Comment: Speci men Type: BLOOD SPECIMENOrdering Facility: [facility] Address: [address] [place] [address] Performed By: #### 5 7021-8 ####[facility] LABCLIA [id number] [place] [address] Immature granulocytes (Bld) [#/Vol] 0.23 10*3/uL High <0.10 [facility] Comment on above: Order Comment: Speci men Type: BLOOD SPECIMENOrdering Facility: [facility] Address: [address] [place] [address] Performed By: #### 5 7021-8 ####[facility] LABCLIA [id number] [place] [address] Immature granulocytes/100 WBC (Bld) 1.8 % Normal [facility] Comment on above: Order Comment: Speci men Type: BLOOD SPECIMENOrdering Facility: [facility] Address: [address] [place] [address] Performed By: #### 5 7021-8 ####[facility] LABCLIA [id number] [place] [address] Lymphocytes (Bld) [#/Vol] 2.07 10*3/uL Normal 1.00-4.00 [facility] Comment on above: Order Comment: Speci men Type: BLOOD SPECIMENOrdering Facility: [facility] Address: [address] [place] [address] Performed By: #### 5 7021-8 ####[facility] LABCLIA [id number] [place] [address] Lymphocytes/100 WBC (Bld) 15.8 % Normal [facility] Comment on above: Order Comment: Speci men Type: BLOOD SPECIMENOrdering Facility: [facility] Address: [address] [place] [address] Performed By: #### 5 7021-8 ####[facility] LABCLIA [id number] [place] [address] MCH (RBC) [Entitic mass] 30.2 pg Normal 26.0-34.0 [facility] Comment on above: Order Comment: Speci men Type: BLOOD SPECIMENOrdering Facility: [facility] Address: [address] [place] [address] Performed By: #### 5 7021-8 ####[facility] LABCLIA [id number] [place] [address] MCHC (RBC) [Mass/Vol] 32.2 g/dL Normal 30.5-36.0 [facility] Comment on above: Order Comment: Speci men Type: BLOOD SPECIMENOrdering Facility: [facility] Address: [address] [place] [address] Performed By: #### 5 7021-8 ####[facility] LABCLIA [id number] [place] [address] MCV (RBC) [Entitic vol] 93.9 fL Normal 80.0-100.0 [facility] Comment on above: Order Comment: Speci men Type: BLOOD SPECIMENOrdering Facility: [facility] Address: [address] [place] [address] Performed By: #### 5 7021-8 ####[facility] LABCLIA [id number] [place] [address] Monocytes (Bld) [#/Vol] 0.86 10*3/uL Normal <0.87 [facility] Comment on above: Order Comment: Speci men Type: BLOOD SPECIMENOrdering Facility: [facility] Address: [address] [place] [address] Performed By: #### 5 7021-8 ####[facility] LABCLIA [id number] [place] [address] Monocytes/100 WBC (Bld) 6.6 % Normal [facility] Comment on above: Order Comment: Speci men Type: BLOOD SPECIMENOrdering Facility: [facility] Address: [address] [place] [address] Performed By: #### 5 7021-8 ####[facility] LABCLIA [id number] [place] [address] Neutrophils (Bld) [#/Vol] 9.82 10*3/uL High 1.45-7.50 [facility] Comment on above: Order Comment: Speci men Type: BLOOD SPECIMENOrdering Facility: [facility] Address: [address] [place] [address] Performed By: #### 5 7021-8 ####[facility] LABCLIA [id number] [place] [address] Neutrophils/100 WBC (Bld) 74.7 % Normal [facility] Comment on above: Order Comment: Speci men Type: BLOOD SPECIMENOrdering Facility: [facility] Address: [address] [place] [address] Performed By: #### 5 7021-8 ####[facility] LABIA [id number] [place] [address] Nucleated RBC (Bld) [#/Vol] 10*3/uL Normal <0.01 [facility] Comment on above: Order Comment: Speci men Type: BLOOD SPECIMENOrdering Facility: [facility] Address: [address] [place] [address] Performed By: #### 5 7021-8 ####[facility] LABCLIA [id number] [place] [address] Nucleated RBC/100 WBC (Bld) [Ratio] 0.0 /100 WBC Normal [facility] Comment on above: Order Comment: Speci men Type: BLOOD SPECIMENOrdering Facility: [facility] Address: [address] [place] [address] Performed By: #### 5 7021-8 ####[facility] LABCLIA [id number] [place] [address] Platelet mean volume (Bld) [Entitic vol] 9.5 fL Normal 9.0-12.7 [facility] Comment on above: Order Comment: Speci men Type: BLOOD SPECIMENOrdering Facility: [facility] Address: [address] [place] [address] Performed By: #### 5 7021-8 ####[facility] LABCLIA [id number] [place] [address] Platelets (Bld) [#/Vol] 291 10*3/uL Normal 150-400 [facility] Comment on above: Order Comment: Speci men Type: BLOOD SPECIMENOrdering Facility: [facility] Address: [address] [place] [address] Performed By: #### 5 7021-8 ####[facility] LABCLIA [id number] [place] [address] RBC (Bld) [#/Vol] 4.57 10*6/uL Normal 3.90-5.20 [facility] Comment on above: Order Comment: Speci men Type: BLOOD SPECIMENOrdering Facility: [facility] Address: [address] [place] [address] Performed By: #### 5 7021-8 ####[facility] LABCLIA [id number] [place] [address] WBC (Bld) [#/Vol] 13.12 10*3/uL High 3.70-11.00 [facility] Comment on above: Order Comment: Speci men Type: BLOOD SPECIMENOrdering Facility: [facility] Address: [address] [place] [address] Performed By: #### 5 7021-8 ####[facility] LABCLIA [id number] [place] [address] Comprehensive metabolic 2000 panelon 08-29-2024 Albumin [Mass/Vol] 4.2 g/dL Normal 3.9-4.9 [facility] Comment on above: Order Comment: Speci men Type: BLOOD SPECIMENOrdering Facility: [facility] Address: [address] [place] [address] Performed By: #### 2 4323-8 ####[facility] LABCLIA [id number] [place] [address] ALP [Catalytic activity/Vol] 69 U/L Normal 34-123 [facility] Comment on above: Order Comment: Speci men Type: BLOOD SPECIMENOrdering Facility: [facility] Address: [address] [place] [address] Performed By: #### 2 4323-8 ####[facility] LABCLIA [id number] [place] [address] ALT [Catalytic activity/Vol] 38 U/L Normal 7-38 [facility] Comment on above: Order Comment: Speci men Type: BLOOD SPECIMENOrdering Facility: [facility] Address: [address] [place] [address] Performed By: #### 2 4323-8 ####[facility] LABCLIA [id number] [place] [address] Anion gap [Moles/Vol] 12 mmol/L Normal 8-15 [facility] Comment on above: Order Comment: Speci men Type: BLOOD SPECIMENOrdering Facility: [facility] Address: [address] [place] [address] Performed By: #### 2 4323-8 ####[facility] LABCLIA [id number] [place] [address] AST [Catalytic activity/Vol] 15 U/L Normal 13-35 [facility] Comment on above: Order Comment: Speci men Type: BLOOD SPECIMENOrdering Facility: [facility] Address: [address] [place] [address] Performed By: #### 2 4323-8 ####[facility] LABCLIA [id number] [place] [address] Bilirubin [Mass/Vol] 0.2 mg/dL Normal 0.2-1.3 [facility] Comment on above: Order Comment: Speci men Type: BLOOD SPECIMENOrdering Facility: [facility] Address: [address] [place] [address] Performed By: #### 2 4323-8 ####[facility] LABCLIA [id number] [place] [address] Calcium [Mass/Vol] 10.3 mg/dL High 8.5-10.2 [facility] Comment on above: Order Comment: Speci men Type: BLOOD SPECIMENOrdering Facility: [facility] Address: [address] [place] [address] Performed By: #### 2 4323-8 ####[facility] LABCLIA [id number] [place] [address] Chloride [Moles/Vol] 101 mmol/L Normal 98-107 [facility] Comment on above: Order Comment: Speci men Type: BLOOD SPECIMENOrdering Facility: [facility] Address: [address] [place] [address] Performed By: #### 2 4323-8 ####[facility] LABCLIA [id number] [place] [address] CO2 [Moles/Vol] 26 mmol/L Normal 22-30 [facility] Comment on above: Order Comment: Speci men Type: BLOOD SPECIMENOrdering Facility: [facility] Address: [address] [address] Performed By: #### 2 4323-8 ####[facility] LABCLIA [id number] [place] [address] Creatinine [Mass/Vol] 0.64 mg/dL Normal 0.58-0.96 [facility] Comment on above: Order Comment: Speci men Type: BLOOD SPECIMENOrdering Facility: [facility] Address: [address] [place] [address] Performed By: #### 2 4323-8 ####[facility] LABCLIA [id number] [place] [address] Creatinine and Glomerular filtration rate.predicted panel (S/P/Bld) 113 mL/min/1.73m??? Normal >=60 [facility] Comment on above: Order Comment: Speci men Type: BLOOD SPECIMENOrdering Facility: [facility] Address: [address] [place] [address] Result Comment: Erin mated Glomerular Filtration Rate [...] actual GFR. Performed By: #### 2 4323-8 ####[facility] LABIA [id number] [place] [address] Glucose [Mass/Vol] 139 mg/dL High 74-99 [facility] Comment on above: Order Comment: Speci men Type: BLOOD SPECIMENOrdering Facility: [facility] Address: [address] [place], [place] [address] Result Comment: The [place] Diabetes Association (ADA) provides guidance for cutoff [...] Standards of Medical Care in Diabetes 2016, [place] [employer]. Diabetes Care. 2016.39(Suppl 1). Performed By: #### 2 4323-8 ####[facility] LABCLIA [id number] [place] [address] Potassium [Moles/Vol] 4.4 mmol/L Normal 3.7-5.1 [facility] Comment on above: Order Comment: Speci men Type: BLOOD SPECIMENOrdering Facility: [facility] Address: [address] [place] [address] Performed By: #### 2 4323-8 ####[facility] LABCLIA [id number] [place] [address] Protein [Mass/Vol] 7.1 g/dL Normal 6.3-8.0 [facility] Comment on above: Order Comment: Speci men Type: BLOOD SPECIMENOrdering Facility: [facility] Address: [address] [place] [address] Performed By: #### 2 4323-8 ####[facility] LABCLIA [id number] [place] [address] Sodium [Moles/Vol] 139 mmol/L Normal 136-144 [facility] Comment on above: Order Comment: Speci men Type: BLOOD SPECIMENOrdering Facility: [facility] Address: [address] [place] [address] Performed By: #### 2 4323-8 ####[facility] LABCLIA [id number] [place] [address] Urea nitrogen [Mass/Vol] 18 mg/dL Normal 7-21 [facility] Comment on above: Order Comment: Speci men Type: BLOOD SPECIMENOrdering Facility: [facility] Address: [address] [place], [place] [address] Performed By: #### 2 4323-8 ####[facility] LABCLIA [id number] [place] [address] Ferritin SerPl-mCncon 2024 Ferritin [Mass/Vol] 43.1 ng/mL Normal 14.7-205.1 [facility] Comment on above: Order Comment: Speci men Type: BLOOD SPECIMENOrdering Facility: [facility] Address: [address] [place] [address] Performed By: #### 2 132-9, 2284-8, 2276-4, 68066-3 ####[facility] LABCLIA [id number] [place] [address] [place] Folate SerPl-mCncon 08-30-19 25 Folate [Mass/Vol] ng/mL Normal >4.7 [facility] Comment on above: Order Comment: Speci men Type: BLOOD SPECIMENOrdering Facility: [facility] Address: [address] [place] [address] Result Comment: A re sult of > 20 ng/mL is not necessarily indicative of a pathologic or treatable condition: it reflects a limitation of the test methodology.Assay reference range: 4.8 to 24.2 ng/mL. Suitable for detection of folate deficiency.Reference:Folate III (Folate III) [package insert V 1.0 [place]ese]. [facility], [place], [place]: March 2015. Performed By: #### 2 132-9, 2284-8, 2276-4, 55907-9 ####[facility] LABIA [id number] [place] [id number] [place] IgG SerPl-mCncon 08-29-2024 IgG [Mass/Vol] 729 mg/dL Normal 700-1600 [facility] Comment on above: Order Comment: Speci men Type: BLOOD SPECIMENOrdering Facility: [facility] Address: [address] [place] [address] Performed By: #### 2 465-3 ####[facility] LABIA [id number] [address] [address] [place] Iron and Iron binding capaci ty panelon 08-29-2024 Iron [Mass/Vol] 80 ug/dL Normal 41-186 [facility] Comment on above: Order Comment: Speci men Type: BLOOD SPECIMENOrdering Facility: [facility] Address: [address] [place] [address] Performed By: #### 2 132-9, 2284-8, 2276-4, 00980-0 ####[facility] LABIA [id number] [place] [id number] [place] Iron binding capacity [Mass/Vol] 416 ug/dL High 232-386 [facility] Comment on above: Order Comment: Speci men Type: BLOOD SPECIMENOrdering Facility: [facility] Address: [address] [place] [address] Performed By: #### 2 132-9, 2284-8, 2276-4, 05174-2 ####[facility] LABIA [id number] [place] [id number] [place] Iron/TIBC [Molar ratio] 19.2 % Normal 15.0-57.0 [facility] Comment on above: Order Comment: Speci men Type: BLOOD SPECIMENOrdering Facility: [facility] Address: [address] [place] [address] Performed By: #### 2 132-9, 2284-8, 2276-4, 34247-7 ####[facility] LABIA [id number] [place] [id number] [place] Vit B12 SerPl-mCncon 025 Cobalamin (Vitamin B12) [Mass/Vol] 555 pg/mL Normal 232-1245 [facility] Comment on above: Order Comment: Speci men Type: BLOOD SPECIMENOrdering Facility: [facility] Address: [address] [place] [address] Performed By: #### 2 132-9, 2284-8, 2276-4, 75105-2 ####[facility] LABCLIA [id number] [place] [address] [place] CNPNon 08-28-2024 CNPN Normal [facility] [place] [address] Ultrasound Report Signed Patient: ARIADNA HALEY MR#: [id number] : 1980 Acct:[id number] Age/Sex: 43 / F ADM Date: 08/24/24 Loc: US Attending Dr: Gordo Barfield M.D. Ordering Physician: Gordo Barfield M.D. Date of Service: 08/24/24 Procedure(s): US thyroid Accession Number(s): [id number] cc: GAY ENCISO ; Gordo Barfield M.D. [place] [id number] Patient Name: ARIADNA HALEY MRN: [id number] date: 1980 Sex: F Assigned Patient Location: US Current Patient Location: [place] Accession/Order Number: [id number] Exam Date: 08/24/2024 09:09 Report Date: 08/24/2024 [...] this was thought to be cystic. The school year nanny today considered it solid and it was given TI-RADS 4 classification. No internal color flow is shown. Size has not significantly changed when measuring in a comparable manner. No other nodularity is seen. US/US thyroid IMPRESSION: SIMILAR SMALL LEFT THYROID NODULE. FOLLOW-UP IN ONE YEAR IS SUGGESTED. Impression dictated by: Simin Nelson M.D.08/24/2024 9:22 AM Dictation Location: [place] [address] Electronically authenticated by: [id number] Y Date: 08/24/2024 09:22 Dictated By: Simin Nelson M.D. Signed By: 08/24/24923 DD/ 1 TD/TT: Table Tender: [facility] Radiology, Radiologist, MD - 08/24/2024 [place] [address] Ultrasound Report Signed Patient: ARIADNA HALEY MR#: [id number] : 1980 Acct:[id number] Age/Sex: 43 / F ADM Date: 08/24/24 Loc: US Attending Dr: Gordo Barfield M.D. Ordering Physician: Gordo Barfield M.D. Date of Service: 08/24/24 Procedure(s): US thyroid Accession Number(s): [id number] cc: GAY ENCISO ; Gordo Barfield M.D. [address] [place] [id number] Patient Name: ARIADNA HALEY MRN: [facility]:[id number] date: 1980 Sex: F Assigned Patient Location: US Current Patient Location: US Accession/Order Number: [id number] Exam Date: 08/24/2024 09:09 Report Date: 08/24/2024 [...] this was thought to be cystic. The school year nanny today considered it solid and it was given TI-RADS 4 classification. No internal color flow is shown. Size has not significantly changed when measuring in a comparable manner. No other nodularity is seen. US/US thyroid IMPRESSION: SIMILAR SMALL LEFT THYROID NODULE. FOLLOW-UP IN ONE YEAR IS SUGGESTED. Impression dictated by: Simin Nelson M.D.08/24/2024 9:22 AM Dictation Location: [place] [address] Electronically authenticated by: [id number] Y Date: 08/24/2024 09:22 Dictated By: Simin Nelson M.D. Signed By: 08/24/24923 DD/ 1 TD/TT: Table Tender: [facility] Radiology Study observation (narrative) [facility] US Thyroid glandOrdered By: Radiologist Radiology on 08-24-2024 [facility] Work Phone: CNPNon 08-08-2024 CNPN Normal [facility] HCG ( test) IA.rapi d Ql (U)Ordered By: Adolfo Kang on 07-19-2024 HCG ( test) Ql (U) Urine human chorionic gonadotropin (hCG) detection by immunoassay [facility] HCG,Urineon 07-19-2024 Beta HCG ( test) Ql (U) Negative Normal [facility] Comment on above: Result Comment: PERF ORMED BY: [place] [address] PATHOLOGIST SUBSCRIPTION AGENT HAYDEN LLAMAS M.D. Performed By: #### U HCG #### [address] CNOVon 07-12-2024 CNOV Normal [facility] CNPNon 07-09-2024 CNPN Normal [facility] 25(OH)D3 SerPl-mCncon 2024 25-hydroxyvitamin D3 [Mass/Vol] 28.5 ng/mL Low 31.0-80.0 [facility] Comment on above: Order Comment: Speci men Type: BLOOD SPECIMENOrdering Facility: [facility] Address: [address] [place] [address] Result Comment: Clas sification of 25 [place] Vitamin D status:Deficiency/Insufficiency: < or = 30 ng/ml.Sufficiency/Optimal Levels: 31-80 ng/mLToxicity: > 100 ng/mL.Test performed by chemiluminescent immunoassay. Performed By: #### 1 989-3 ####[facility] LABCLIA [id number] [address] [place] CBC panel Auto (Bld)on 06-30 Erythrocyte distribution width (RBC) [Ratio] 14.3 % Normal 11.5-15.0 [facility] Comment on above: Order Comment: Speci men Type: BLOOD SPECIMENOrdering Facility: [facility] Address: [address] [place] [address] Performed By: #### 5 8410-2 ####[facility] LABIA [id number] [address] STATES OF [facility] Hematocrit (Bld) [Volume fraction] 41.3 % Normal 36.0-46.0 [facility] Comment on above: Order Comment: Speci men Type: BLOOD SPECIMENOrdering Facility: [facility] Address: [address] [place] [address] Performed By: #### 5 8410-2 ####[facility] LABIA [id number] [place] [address] [place] Hemoglobin (Bld) [Mass/Vol] 13.5 g/dL Normal 11.5-15.5 [facility] Comment on above: Order Comment: Speci men Type: BLOOD SPECIMENOrdering Facility: [facility] Address: [address] [place] [address] Performed By: #### 5 8410-2 ####[facility] LABIA [id number] [place] [address] [place] MCH (RBC) [Entitic mass] 30.4 pg Normal 26.0-34.0 [facility] Comment on above: Order Comment: Speci men Type: BLOOD SPECIMENOrdering Facility: [facility] Address: [address] [place] [address] Performed By: #### 5 8410-2 ####[facility] LABIA [id number] [place] [address] [place] MCHC (RBC) [Mass/Vol] 32.7 g/dL Normal 30.5-36.0 [facility] Comment on above: Order Comment: Speci men Type: BLOOD SPECIMENOrdering Facility: [facility] Address: [address] [place] [address] Performed By: #### 5 8410-2 ####[facility] LABIA [id number] [place] [address] [place] MCV (RBC) [Entitic vol] 93.0 fL Normal 80.0-100.0 [facility] Comment on above: Order Comment: Speci men Type: BLOOD SPECIMENOrdering Facility: [facility] Address: [address] [place] [address] Performed By: #### 5 8410-2 ####[facility] LABIA [id number] [place] [address] [place] Nucleated RBC (Bld) [#/Vol] 10*3/uL Normal <0.01 [facility] Comment on above: Order Comment: Speci men Type: BLOOD SPECIMENOrdering Facility: [facility] Address: [address] [place] [address] Performed By: #### 5 8410-2 ####[facility] LABIA [id number] [place] [id number] [place] Platelet mean volume (Bld) [Entitic vol] 9.8 fL Normal 9.0-12.7 [facility] Comment on above: Order Comment: Speci men Type: BLOOD SPECIMENOrdering Facility: [facility] Address: [address] [place] [address] Performed By: #### 5 8410-2 ####[facility] LABCLIA [id number] [place] [address] [place] Platelets (Bld) [#/Vol] 341 10*3/uL Normal 150-400 [facility] Comment on above: Order Comment: Speci men Type: BLOOD SPECIMENOrdering Facility: [facility] Address: [address] [place] [address] Performed By: #### 5 8410-2 ####[facility] LABIA [id number] [place] [address] [place] RBC (Bld) [#/Vol] 4.44 10*6/uL Normal 3.90-5.20 [facility] Comment on above: Order Comment: Speci men Type: BLOOD SPECIMENOrdering Facility: [facility] Address: [address] [place] [address] Performed By: #### 5 8410-2 ####[facility] LABIA [id number] [place] [address] [place] WBC (Bld) [#/Vol] 12.66 10*3/uL High 3.70-11.00 [facility] Comment on above: Order Comment: Speci men Type: BLOOD SPECIMENOrdering Facility: [facility] Address: [address] [place] [address] Performed By: #### 5 8410-2 ####[facility] LABIA [id number] [place] [address] [place] CRP SerPl-mCncon 06-30-2024 CRP [Mass/Vol] 0.1 mg/dL Normal <0.9 [facility] Comment on above: Order Comment: Speci men Type: BLOOD SPECIMENOrdering Facility: [facility] Address: [address] [place] [address] Performed By: #### 1 988-5, 37742-7 ####[facility] LABIA [id number] [place] [id number] [place] [facility] Comprehensive metabolic 2000 panelon 06-30-2024 Albumin [Mass/Vol] 4.0 g/dL Normal 3.9-4.9 [facility] Comment on above: Order Comment: Speci men Type: BLOOD SPECIMENOrdering Facility: [facility] Address: [address] [place] [address] Performed By: #### 1 988-5, 82054-5 ####[facility] LABCLIA [id number] [place] [address] [place] ALP [Catalytic activity/Vol] 52 U/L Normal 34-123 [facility] Comment on above: Order Comment: Speci men Type: BLOOD SPECIMENOrdering Facility: [facility] Address: [address] [place] [address] Performed By: #### 1 988-5, 39409-3 ####[facility] LABCLIA [id number] [place] [id number] [place] ALT [Catalytic activity/Vol] 26 U/L Normal 7-38 [facility] Comment on above: Order Comment: Speci men Type: BLOOD SPECIMENOrdering Facility: [facility] Address: [address] [place] [address] Performed By: #### 1 988-5, 18020-2 ####[facility] LABCLIA [id number] [place] [address] [place] Anion gap [Moles/Vol] 10 mmol/L Normal 8-15 [facility] Comment on above: Order Comment: Speci men Type: BLOOD SPECIMENOrdering Facility: [facility] Address: [address] [place] [address] Performed By: #### 1 988-5, 82043-2 ####[facility] LABCLIA [id number] [place] [address] [place] AST [Catalytic activity/Vol] 12 U/L Low 13-35 [facility] Comment on above: Order Comment: Speci men Type: BLOOD SPECIMENOrdering Facility: [facility] Address: [address] [place] [address] Performed By: #### 1 988-5, 16402-6 ####[facility] LABCLIA [id number] [place] [address] [place] Bilirubin [Mass/Vol] 0.3 mg/dL Normal 0.2-1.3 [facility] Comment on above: Order Comment: Speci men Type: BLOOD SPECIMENOrdering Facility: [facility] Address: [address] [place] [address] Performed By: #### 1 988-5, 14577-8 ####[facility] [facility] [id number] [place] [id number] [place] Calcium [Mass/Vol] 9.5 mg/dL Normal 8.5-10.2 [facility] Comment on above: Order Comment: Speci men Type: BLOOD SPECIMENOrdering Facility: [facility] Address: [address] [place] [address] Performed By: #### 1 988-5, 32496-9 ####[facility] [id number] [place] [id number] [place] Chloride [Moles/Vol] 103 mmol/L Normal 98-107 [facility] Comment on above: Order Comment: Speci men Type: BLOOD SPECIMENOrdering Facility: [facility] Address: [address] [place] [address] Performed By: #### 1 988-5, ####[facility] [id number] [place] [address] [place] CO2 [Moles/Vol] 27 mmol/L Normal 22-30 [facility] Comment on above: Order Comment: Speci men Type: BLOOD SPECIMENOrdering Facility: [facility] Address: [address] [place] [address] Performed By: #### 1 988-5, 94258-9 ####[facility] [id number] [place] [id number] [place] Creatinine [Mass/Vol] 0.78 mg/dL Normal 0.58-0.96 [facility] Comment on above: Order Comment: Semaj cortés Type: BLOOD SPECIMENOrdering Facility: [facility] Address: [address] [place] [address] Performed By: #### 1 988-5, 26322-7 ####[facility] [id number] [place] [id number] [place] Creatinine and Glomerular filtration rate.predicted panel (S/P/Bld) 97 mL/min/1.73m??? Normal >=60 [facility] Comment on above: Order Comment: Semaj cortés Type: BLOOD SPECIMENOrdering Facility: [facility] Address: [address] [address] Result Comment: Erin mated Glomerular Filtration Rate [...] actual GFR. Performed By: #### 1 988-5, 39545-4 ####[facility] [id number] [place] [id number] [place] Glucose [Mass/Vol] 116 mg/dL High 74-99 [facility] Comment on above: Order Comment: Semaj cortés Type: BLOOD SPECIMENOrdering Facility: [facility] Address: [address] [place] [address] Result Comment: The [place] Diabetes Association (ADA) provides guidance for cutoff [...] Standards of Medical Care in Diabetes 2016, [place] Diabetes [employer]. Diabetes Care. 2016.39(Suppl 1). Performed By: #### 1 988-5, 69783-0 ####[facility] [id number] [place] [address] [place] Potassium [Moles/Vol] 3.8 mmol/L Normal 3.7-5.1 [facility] Comment on above: Order Comment: Speci men Type: BLOOD SPECIMENOrdering Facility: [facility] Address: [address] [place] [id number] Performed By: #### 1 988-5, 66621-2 ####[facility] [id number] [place] [address] [place] Protein [Mass/Vol] 7.6 g/dL Normal 6.3-8.0 [facility] Comment on above: Order Comment: Speci men Type: BLOOD SPECIMENOrdering Facility: [facility] Address: [address] [place] [address] Performed By: #### 1 988-5, 97840-3 ####[facility] [id number] [place] [address] [place] Sodium [Moles/Vol] 140 mmol/L Normal 136-144 [facility] Comment on above: Order Comment: Speci men Type: BLOOD SPECIMENOrdering Facility: [facility] Address: [address] [place] [address] Performed By: #### 1 988-5, 05847-4 ####[facility] [id number] [place] [address] [place] Urea nitrogen [Mass/Vol] 18 mg/dL Normal 7-21 [facility] Comment on above: Order Comment: Speci men Type: BLOOD SPECIMENOrdering Facility: [facility] Address: [address] [place] [address] Performed By: #### 1 988-5, 02823-7 ####[facility] [id number] [place] [address] [place] ESR Westergren method (Bld) [Velocity]on 06-30-2024 ESR (Bld) [Velocity] 28 mm/h High 0-20 [facility] Comment on above: Order Comment: Speci men Type: BLOOD SPECIMENOrdering Facility: [facility] Address: [address] [place] [address] Performed By: #### 4 537-7 ####[facility]IA [id number] [place] [address] [place] CNPNon 06-16-2024 CNPN Normal [facility] ALLIED HEALTHon 06-13-2024 ALLIED HEALTH Normal [facility] CBC W Auto Differential pane l (Bld)on 06-13-2024 Basophils (Bld) [#/Vol] 0.10 10*3/uL [facility] Basophils/100 WBC (Bld) 0.7 % [facility] Differential cell count method Nom (Bld) Auto [facility] Eosinophils (Bld) [#/Vol] 0.15 10*3/[facility]L [facility] Eosinophils/100 WBC (Bld) 1.1 % [facility] Erythrocyte distribution width (RBC) [Ratio] 14.2 % 11.5 - 15.0 % [facility] Hematocrit (Bld) [Volume fraction] 39.0 % 36.0 - 46.0 % [facility] Hemoglobin (Bld) [Mass/Vol] 13.0 g/dL 11.5 - 15.5 g/dL [facility] Immature granulocytes (Bld) [#/Vol] 0.21 10*3/uL [facility] Immature granulocytes/100 WBC (Bld) 1.5 % [facility] Interpretation and review of laboratory results Abnormal [facility] Lymphocytes (Bld) [#/Vol] 2.16 10*3/uL [facility] Lymphocytes/100 WBC (Bld) 15.4 % [facility] MCH (RBC) [Entitic mass] 30.5 pg 26.0 - 34.0 pg [facility] MCHC (RBC) [Mass/Vol] 33.3 g/dL 30.5 - 36.0 g/dL [facility] MCV (RBC) [Entitic vol] 91.5 fL 80.0 - 100.0 fL [facility] Monocytes (Bld) [#/Vol] 0.79 10*3/[facility] Monocytes/100 WBC (Bld) 5.6 % [facility] Neutrophils (Bld) [#/Vol] 10.59 10*3/uL High [facility] Neutrophils/100 WBC (Bld) 75.7 % [facility] Nucleated RBC (Bld) [#/Vol] NINF [facility] Nucleated RBC/100 WBC (Bld) [Ratio] 0.0 % /100 WBC [facility] Platelet mean volume (Bld) [Entitic vol] 9.9 fL 9.0 - 12.7 fL [facility] Platelets (Bld) [#/Vol] 327 10*3/uL [facility] RBC (Bld) [#/Vol] 4.26 10*6/uL 3.90 - 5.2 0 m/uL [facility] WBC (Bld) [#/Vol] 14.00 10*3/uL High [facility] Basophils (Bld) [#/Vol] 0.10 10*3/uL Normal <0.11 [facility] Comment on above: Order Comment: Speci men Type: BLOOD SPECIMENOrdering Facility: [facility] Address: [address] [place] [address] Performed By: #### 5 7021-8 ####[facility] [id number] [place] [address] Basophils/100 WBC (Bld) 0.7 % Normal [facility] Comment on above: Order Comment: Speci men Type: BLOOD SPECIMENOrdering Facility: [facility] Address: [address] [place] [address] Performed By: #### 5 7021-8 ####[facility] [id number] [place] [address] Differential cell count method Nom (Bld) Auto Normal [facility] Comment on above: Order Comment: Speci men Type: BLOOD SPECIMENOrdering Facility: [facility] Address: [address] [place] [address] Performed By: #### 5 7021-8 ####[facility] [id number] [place] [address] Eosinophils (Bld) [#/Vol] 0.15 10*3/uL Normal <0.46 [facility] Comment on above: Order Comment: Speci men Type: BLOOD SPECIMENOrdering Facility: [facility] Address: [address] [place] [address] Performed By: #### 5 7021-8 ####[facility] [id number] [place] [address] Eosinophils/100 WBC (Bld) 1.1 % Normal [facility] Comment on above: Order Comment: Speci men Type: BLOOD SPECIMENOrdering Facility: [facility] Address: [address] [place] [address] Performed By: #### 5 7021-8 ####[facility] [id number] [place] [address] Erythrocyte distribution width (RBC) [Ratio] 14.2 % Normal 11.5-15.0 [facility] Comment on above: Order Comment: Speci men Type: BLOOD SPECIMENOrdering Facility: [facility] Address: [address] [place] [address] Performed By: #### 5 7021-8 ####[facility] [id number] [place] [address] Hematocrit (Bld) [Volume fraction] 39.0 % Normal 36.0-46.0 [facility] Comment on above: Order Comment: Speci men Type: BLOOD SPECIMENOrdering Facility: [facility] Address: [address] [place] [address] Performed By: #### 5 7021-8 ####[facility] [id number] [place] [address] Hemoglobin (Bld) [Mass/Vol] 13.0 g/dL Normal 11.5-15.5 [facility] Comment on above: Order Comment: Speci men Type: BLOOD SPECIMENOrdering Facility: [facility] Address: [address] [place] [address] Performed By: #### 5 7021-8 ####[facility] [id number] [place] [address] Immature granulocytes (Bld) [#/Vol] 0.21 10*3/uL High <0.10 [facility] Comment on above: Order Comment: Speci men Type: BLOOD SPECIMENOrdering Facility: [facility] Address: [address] [place] [address] Performed By: #### 5 7021-8 ####[facility] [id number] [place] [address] Immature granulocytes/100 WBC (Bld) 1.5 % Normal [facility] Comment on above: Order Comment: Speci men Type: BLOOD SPECIMENOrdering Facility: [facility] Address: [address] [place] [address] Performed By: #### 5 7021-8 ####[facility] [id number] [place] [address] Lymphocytes (Bld) [#/Vol] 2.16 10*3/uL Normal 1.00-4.00 [facility] Comment on above: Order Comment: Speci men Type: BLOOD SPECIMENOrdering Facility: [facility] Address: [address] [place] [address] Performed By: #### 5 7021-8 ####[facility] [id number] [place] [address] Lymphocytes/100 WBC (Bld) 15.4 % Normal [facility] Comment on above: Order Comment: Speci men Type: BLOOD SPECIMENOrdering Facility: [facility] Address: [address] [place] [address] Performed By: #### 5 7021-8 ####[facility] [id number] [place] [address] MCH (RBC) [Entitic mass] 30.5 pg Normal 26.0-34.0 [facility] Comment on above: Order Comment: Speci men Type: BLOOD SPECIMENOrdering Facility: [facility] Address: [address] [place] [address] Performed By: #### 5 7021-8 ####[facility] [id number] [place] [address] MCHC (RBC) [Mass/Vol] 33.3 g/dL Normal 30.5-36.0 [facility] Comment on above: Order Comment: Speci men Type: BLOOD SPECIMENOrdering Facility: [facility] Address: [address] [place] [address] Performed By: #### 5 7021-8 ####[facility] [id number] [place] [address] MCV (RBC) [Entitic vol] 91.5 fL Normal 80.0-100.0 [facility] Comment on above: Order Comment: Speci men Type: BLOOD SPECIMENOrdering Facility: [facility] Address: [address] [place] [address] Performed By: #### 5 7021-8 ####[facility] [id number] [place] [address] Monocytes (Bld) [#/Vol] 0.79 10*3/uL Normal <0.87 [facility] Comment on above: Order Comment: Speci men Type: BLOOD SPECIMENOrdering Facility: [facility] Address: [address] [place] [address] Performed By: #### 5 7021-8 ####[facility] [id number] [place] [address] Monocytes/100 WBC (Bld) 5.6 % Normal [facility] Comment on above: Order Comment: Speci men Type: BLOOD SPECIMENOrdering Facility: [facility] Address: [address] [place] [address] Performed By: #### 5 7021-8 ####[facility] [id number] [place] [address] Neutrophils (Bld) [#/Vol] 10.59 10*3/uL High 1.45-7.50 [facility] Comment on above: Order Comment: Speci men Type: BLOOD SPECIMENOrdering Facility: [facility] Address: [address] [place] [address] Performed By: #### 5 7021-8 ####[facility] [id number] [place] [address] Neutrophils/100 WBC (Bld) 75.7 % Normal [facility] Comment on above: Order Comment: Speci men Type: BLOOD SPECIMENOrdering Facility: [facility] Address: [address] [place] [address] Performed By: #### 5 7021-8 ####[facility] [id number] [place] [address] Nucleated RBC (Bld) [#/Vol] 10*3/uL Normal <0.01 [facility] Comment on above: Order Comment: Speci men Type: BLOOD SPECIMENOrdering Facility: [facility] Address: [address] [place] [address] Performed By: #### 5 7021-8 ####[facility]IA [id number] [place] [address] Nucleated RBC/100 WBC (Bld) [Ratio] 0.0 /100 WBC Normal [facility] Comment on above: Order Comment: Speci men Type: BLOOD SPECIMENOrdering Facility: [facility] Address: [address] [place] [address] Performed By: #### 5 7021-8 ####[facility] [id number] [place] [address] Platelet mean volume (Bld) [Entitic vol] 9.9 fL Normal 9.0-12.7 [facility] Comment on above: Order Comment: Speci men Type: BLOOD SPECIMENOrdering Facility: [facility] Address: [address] [place] [address] Performed By: #### 5 7021-8 ####[facility]CLIA [id number] [place] [address] Platelets (Bld) [#/Vol] 327 10*3/uL Normal 150-400 [facility] Comment on above: Order Comment: Speci men Type: BLOOD SPECIMENOrdering Facility: [facility] Address: [address] [place] [address] Performed By: #### 5 7021-8 ####[facility]CLIA [id number] [place] [address] RBC (Bld) [#/Vol] 4.26 10*6/uL Normal 3.90-5.20 [facility] Comment on above: Order Comment: Speci men Type: BLOOD SPECIMENOrdering Facility: [facility] Address: [address] [place] [address] Performed By: #### 5 7021-8 ####[facility]CLIA [id number] [place] [address] WBC (Bld) [#/Vol] 14.00 10*3/uL High 3.70-11.00 [facility] Comment on above: Order Comment: Speci men Type: BLOOD SPECIMENOrdering Facility: [facility] Address: [address] [place] [address] Performed By: #### 5 7021-8 ####[facility]CLIA [id number] [place] [address] CNOVSPon 06-13-2024 CNOVSP Normal [facility] 2000 panelOrdered By: Josse Merlos on 06-13-2024 Albumin [Mass/Vol] 3.9 g/dL 3.9 - 4.9 g/dL [facility] ALP [Catalytic activity/Vol] 73 U/L 34 - 123 U/L [facility] ALT [Catalytic activity/Vol] 24 U/L 7 - 38 U/L [facility] Anion gap [Moles/Vol] 15 mmol/L 8 - 15 mmol/L [facility] AST [Catalytic activity/Vol] 12 U/L Low 13 - 35 U/L [facility] Bilirubin [Mass/Vol] mg/dL Low 0.2 - 1 .3 mg/dL [facility] Calcium [Mass/Vol] 9.2 mg/dL 8.5 - 10. 2 mg/dL [facility] Chloride [Moles/Vol] 104 mmol/L 98 - 10 7 mmol/L [facility] CO2 [Moles/Vol] 19 mmol/L Low 22 - 30 mmol/L [facility] Creatinine [Mass/Vol] 0.58 mg/dL 0.58 - 0.96 mg/dL [facility] GFR/1.73 sq M.predicted among non-blacks MDRD (S/P/Bld) [Vol rate/Area] 115 mL/min/{1.73_m2} - PINF [facility] Comment on above: Estimated Glomerular [...] 163 mg/dL High 74 - 99 mg/dL [facility] Comment on above: The [place] Diabete s Association (ADA) provides guidance for [...] Standards of Medical Care in Diabetes 2016, [place] Diabetes [employer]. Diabetes Care. 2016.39(Suppl 1). Interpretation and review of laboratory results Abnormal [facility] Potassium [Moles/Vol] 3.9 mmol/L 3.7 - 5.1 mmol/L [facility] Protein [Mass/Vol] 6.8 g/dL 6.3 - 8.0 g/dL [facility] Sodium [Moles/Vol] 138 mmol/L 136 - 144 mmol/L [facility] Urea nitrogen [Mass/Vol] 13 mg/dL 7 - 21 mg/dL [facility] Comprehensive metabolic 2000 panelon 06-13-2024 Albumin [Mass/Vol] 3.9 g/dL Normal 3.9-4.9 [facility] Comment on above: Order Comment: Speci men Type: BLOOD SPECIMENOrdering Facility: [facility] Address: [address] [place] [address] Performed By: #### 2 4323-8 ####[facility] LABCLIA [id number] [place] [address] ALP [Catalytic activity/Vol] 73 U/L Normal 34-123 [facility] Comment on above: Order Comment: Speci men Type: BLOOD SPECIMENOrdering Facility: [facility] Address: [address] [place] [address] Performed By: #### 2 4323-8 ####[facility] LABCLIA [id number] [place] [address] ALT [Catalytic activity/Vol] 24 U/L Normal 7-38 [facility] Comment on above: Order Comment: Speci men Type: BLOOD SPECIMENOrdering Facility: [facility] Address: [address] [place] [address] Performed By: #### 2 4323-8 ####[facility] LABCLIA [id number] [place] [address] Anion gap [Moles/Vol] 15 mmol/L Normal 8-15 [facility] Comment on above: Order Comment: Speci men Type: BLOOD SPECIMENOrdering Facility: [facility] Address: [address] [place], [place] [address] Performed By: #### 2 4323-8 ####[facility] LABCLIA [id number] [place] [address] AST [Catalytic activity/Vol] 12 U/L Low 13-35 [facility] Comment on above: Order Comment: Speci men Type: BLOOD SPECIMENOrdering Facility: [facility] Address: [address] [place] [address] Performed By: #### 2 4323-8 ####[facility] LABCLIA [id number] [place] [address] Bilirubin [Mass/Vol] mg/dL Low 0.2-1.3 [facility] Comment on above: Order Comment: Speci men Type: BLOOD SPECIMENOrdering Facility: [facility] Address: [address] [place] [address] Performed By: #### 2 4323-8 ####[facility] LABCLIA [id number] [place] [address] Calcium [Mass/Vol] 9.2 mg/dL Normal 8.5-10.2 [facility] Comment on above: Order Comment: Speci men Type: BLOOD SPECIMENOrdering Facility: [facility] Address: [address] [place] [address] Performed By: #### 2 4323-8 ####[facility] LABCLIA [id number] [place] [address] Chloride [Moles/Vol] 104 mmol/L Normal 98-107 [facility] Comment on above: Order Comment: Speci men Type: BLOOD SPECIMENOrdering Facility: [facility] Address: [address] [place], [place] [address] Performed By: #### 2 4323-8 ####[facility] LABCLIA [id number] [place] [address] CO2 [Moles/Vol] 19 mmol/L Low 22-30 [facility] Comment on above: Order Comment: Speci men Type: BLOOD SPECIMENOrdering Facility: [facility] Address: [address] [place] [address] Performed By: #### 2 4323-8 ####[facility] LABCLIA [id number] [place] [address] Creatinine [Mass/Vol] 0.58 mg/dL Normal 0.58-0.96 [facility] Comment on above: Order Comment: Speci men Type: BLOOD SPECIMENOrdering Facility: [facility] Address: [address] [address] Performed By: #### 2 4323-8 ####[facility] LABCLIA [id number] [place] [address] Creatinine and Glomerular filtration rate.predicted panel (S/P/Bld) 115 mL/min/1.73m??? Normal >=60 [facility] Comment on above: Order Comment: Speci men Type: BLOOD SPECIMENOrdering Facility: [facility] Address: [address] [place] [address] Result Comment: Erin mated Glomerular Filtration Rate [...] actual GFR. Performed By: #### 2 4323-8 ####[facility] LABCLIA [id number] [place] [address] Glucose [Mass/Vol] 163 mg/dL High 74-99 [facility] Comment on above: Order Comment: Speci men Type: BLOOD SPECIMENOrdering Facility: [facility] Address: [address] [address] Result Comment: The [place] Diabetes Association (ADA) provides guidance for cutoff [...] Standards of Medical Care in Diabetes 2016, [place] [employer]. Diabetes Care. 2016.39(Suppl 1). Performed By: #### 2 4323-8 ####[facility] LABCLIA [id number] [place] [address] Potassium [Moles/Vol] 3.9 mmol/L Normal 3.7-5.1 [facility] Comment on above: Order Comment: Speci men Type: BLOOD SPECIMENOrdering Facility: [facility] Address: [address] [place] [address] Performed By: #### 2 4323-8 ####[facility] LABCLIA [id number] [place] [address] Protein [Mass/Vol] 6.8 g/dL Normal 6.3-8.0 [facility] Comment on above: Order Comment: Speci men Type: BLOOD SPECIMENOrdering Facility: [facility] Address: [address] [address] Performed By: #### 2 4323-8 ####[facility] LABCLIA [id number] [place] [address] Sodium [Moles/Vol] 138 mmol/L Normal 136-144 [facility] Comment on above: Order Comment: Speci men Type: BLOOD SPECIMENOrdering Facility: [facility] Address: [address] [place] [address] Performed By: #### 2 4323-8 ####[facility] LABCLIA [id number] [place] [address] Urea nitrogen [Mass/Vol] 13 mg/dL Normal 7-21 [facility] Comment on above: Order Comment: Speci men Type: BLOOD SPECIMENOrdering Facility: [facility] Address: [address] [place], [place] [address] Performed By: #### 2 4323-8 ####[facility] LABCLIA [id number] [place] [id number] ESR Westergren method (Bld) [Velocity]on 06-13-2024 ESR (Bld) [Velocity] 30 mm/h High [facility] Interpretation and review of laboratory results Abnormal [facility] ESR (Bld) [Velocity] 30 mm/h High 0-20 [facility] Comment on above: Order Comment: Speci men Type: BLOOD SPECIMENOrdering Facility: [facility] Address: [address] [place] [address] Performed By: #### 4 537-7 ####[facility] LABCLIA [id number] [place] [address] [place] FERRITINon 06-13-2024 Ferritin [Mass/Vol] 30.9 ng/mL 14.7 - 2 05.1 ng/mL [facility] FOLATE, SERUMon 06-13-2024 Folate [Mass/Vol] 19.6 ng/mL 4.7 - PINF ng/mL [facility] Ferritin SerPl-mCncon 2024 Ferritin [Mass/Vol] 30.9 ng/mL Normal 14.7-205.1 [facility] Comment on above: Order Comment: Speci men Type: BLOOD SPECIMENOrdering Facility: [facility] Address: [address] [place] [address] Performed By: #### 2 284-8, 2276-4, 04180-1, 2132-9 ####[facility] LABCLIA [id number] [place] [id number] [place] Ferritin [Mass/Vol]on 2024 Interpretation and review of laboratory results Normal [facility] Folate SerPl-mCncon 06-13-19 25 Folate [Mass/Vol] 19.6 ng/mL Normal >4.7 [facility] Comment on above: Order Comment: Speci men Type: BLOOD SPECIMENOrdering Facility: [facility] Address: [address] [place] [address] Performed By: #### 2 284-8, 2276-4, 82573-3, 2132-9 ####[facility] LABCLIA [id number] [place] [address] [place] IMMUNOGLOBULINS,IGG,IGA,IGMo n 06-13-2024 IgA [Mass/Vol] 170 mg/dL Normal 70-400 [facility] Comment on above: Order Comment: Speci men Type: BLOOD SPECIMENOrdering Facility: [facility] Address: [address] [place] [address] Performed By: #### S ERIMM ####[facility] LABCLIA [id number] [place] [address] [place] IgG [Mass/Vol] 663 mg/dL Low 700-1600 [facility] Comment on above: Order Comment: Speci men Type: BLOOD SPECIMENOrdering Facility: [facility] Address: [address] [place] [address] Performed By: #### S ERIMM ####[facility] LABCLIA [id number] [place] [address] [place] IgM [Mass/Vol] 376 mg/dL High 40-230 [facility] Comment on above: Order Comment: Speci men Type: BLOOD SPECIMENOrdering Facility: [facility] Address: [address] [place] [address] Performed By: #### S ERIMM ####[facility] LABCLIA [id number] [place] [address] [place] Iron and Iron binding capaci ty panelon 06-13-2024 Iron [Mass/Vol] 64 ug/dL Normal 41-186 [facility] Comment on above: Order Comment: Speci men Type: BLOOD SPECIMENOrdering Facility: [facility] Address: [address] [place], [place] [address] Performed By: #### 2 284-8, 2276-4, 79084-3, 2132-01 ####[facility] LABCLIA [id number] [place] [id number] [place] Iron binding capacity [Mass/Vol] 409 ug/dL High 232-386 [facility] Comment on above: Order Comment: Speci men Type: BLOOD SPECIMENOrdering Facility: [facility] Address: [address] [place], [place] [address] Performed By: #### 2 284-8, 2276-4, 84270-8, 2132-01 ####[facility] LABCLIA [id number] [place] [address] [place] Iron/TIBC [Molar ratio] 15.6 % Normal 15.0-57.0 [facility] Comment on above: Order Comment: Speci men Type: BLOOD SPECIMENOrdering Facility: [facility] Address: [address] [place] [address] Performed By: #### 2 284-8, 2276-4, 80461-3, 2132-01 ####[facility] LABCLIA [id number] [place] [id number] [place] Laboratory - Chemistry and C hemistry - challengeon 06-13-2024 IgA [Mass/Vol] 170 mg/dL 70 - 400 mg/dL [facility] IgG [Mass/Vol] 663 mg/dL Low 700 - 1600 mg/dL [facility] IgM [Mass/Vol] 376 mg/dL High 40 - 230 mg/dL [facility] No Panel Informationon 06-13 Interpretation and review of laboratory results Normal [facility] Interpretation and review of laboratory results Abnormal [facility] VITAMIN B12on 06-13-2024 Cobalamin (Vitamin B12) [Mass/Vol] 516 pg/mL 232 - 1245 pg/mL [facility] Vit B12 SerPl-mCncon 025 Cobalamin (Vitamin B12) [Mass/Vol] 516 pg/mL Normal 232-1245 [facility] Comment on above: Order Comment: Speci men Type: BLOOD SPECIMENOrdering Facility: [facility] Address: [address] [place] [address] Performed By: #### 2 284-8, 2276-4, 25088-7, 2132-9 ####[facility] LABCLIA [id number] [facility]STERSa[facility] [address] [place] CNPNon 06-12-2024 CNPN Normal [facility] IGP,APTIMA HPV,AGE GDLNon AGE GDLN ACOG TESTING Note . [facility] Comment on above: TESTS RESULT FLAG UN ITS REF RANGE LAB Clinician Provided Cytology Information Source.............Cervix;Endocervix No. of containers..01 ThinPrep Vial Age Algo ACOG Vicky... 01 FLAG LEGEND: L-Low Normal,H-High Normal,LL-Alert Low,HH-Alert High <-Panic Low,>-Panic High,A-Abnormal,AA-Critical Abnormal Performed at: 01 =G [facility] [place] [address] Aparna Solorzano MD, HPV APTIMA Negative Negative [facility] Comment on above: This nucleic acid am plification test detects fourteen high- risk HPV types (16,18,31,33,35,39,45,51,52,56,58,59,66,68) without differentiation. Performed at: = - [facility] [id number] Emergency Department Coordinator: Aparna Solorzano MD, Phone: [phone] Performed at: - [facility], [place] [id number] Emergency Department Coordinator: Aparna Solorzano MD, Phone: [phone] IGP, APTIMA HPV, RFX 16/18,45 Note . [facility] Comment on above: TESTS RESULT FLAG UN ITS REF RANGE LAB DIAGNOSIS: 02 NEGATIVE FOR INTRAEPITHELIAL LESION OR MALIGNANCY. Specimen adequacy: 02 Satisfactory for evaluation. Endocervical and/or squamous metaplastic cells (endocervical component) are present. Performed by: David Kam, Fuel Cell Systems Engineer ([facility]) . 02 Note: Note 02 The [...] High,A-Abnormal,AA-Critical Abnormal Performed at: 02 [facility] [address] [place] [address] Aparna Solorzano MD, BRUSH-SPATULA CERVIX ENDOCERVIX [facility] CBC W Auto Differential pane l (Bld)on 05-19-2024 Basophils (Bld) [#/Vol] 0.08 10*3/[facility] Basophils/100 WBC (Bld) 0.6 % [facility] Differential cell count method Nom (Bld) Auto [facility] Eosinophils (Bld) [#/Vol] 0.17 10*3/uL [facility] Eosinophils/100 WBC (Bld) 1.2 % [facility] Erythrocyte distribution width (RBC) [Ratio] 14.3 % 11.5 - 15.0 % [facility] Hematocrit (Bld) [Volume fraction] 39.8 % 36.0 - 46.0 % [facility] Hemoglobin (Bld) [Mass/Vol] 13.4 g/dL 11.5 - 15.5 g/dL [facility] Immature granulocytes (Bld) [#/Vol] 0.13 10*3/uL High [facility] Immature granulocytes/100 WBC (Bld) 0.9 % [facility] Interpretation and review of laboratory results Abnormal [facility] Lymphocytes (Bld) [#/Vol] 2.96 10*3/uL [facility] Lymphocytes/100 WBC (Bld) 20.5 % [facility] MCH (RBC) [Entitic mass] 31.1 pg 26.0 - 34.0 pg [facility] MCHC (RBC) [Mass/Vol] 33.7 g/dL 30.5 - 36.0 g/dL [facility] MCV (RBC) [Entitic vol] 92.3 fL 80.0 - 100.0 fL [facility] Monocytes (Bld) [#/Vol] 0.87 10*3/uL High [facility] Monocytes/100 WBC (Bld) 6.0 % [facility] Neutrophils (Bld) [#/Vol] 10.20 10*3/uL High [facility] Neutrophils/100 WBC (Bld) 70.8 % [facility] Nucleated RBC (Bld) [#/Vol] NINF [facility] Nucleated RBC/100 WBC (Bld) [Ratio] 0.0 % /100 WBC [facility] Platelet mean volume (Bld) [Entitic vol] 10.1 fL 9.0 - 12.7 fL [facility] Platelets (Bld) [#/Vol] 303 10*3/uL [facility] RBC (Bld) [#/Vol] 4.31 10*6/uL 3.90 - 5.2 0 m/uL [facility] WBC (Bld) [#/Vol] 14.41 10*3/uL High [facility] Basophils (Bld) [#/Vol] 0.08 10*3/uL Normal <0.11 [facility] Comment on above: Order Comment: Speci men Type: BLOOD SPECIMENOrdering Facility: [facility] Address: [address] [place] [address] Performed By: #### 5 7021-8 ####[facility] LABCLIA [id number] [place] [address] Basophils/100 WBC (Bld) 0.6 % Normal [facility] Comment on above: Order Comment: Speci men Type: BLOOD SPECIMENOrdering Facility: [facility] Address: [address] [place] [address] Performed By: #### 5 7021-8 ####[facility] LABCLIA [id number] [place] [address] Differential cell count method Nom (Bld) Auto Normal [facility] Comment on above: Order Comment: Speci men Type: BLOOD SPECIMENOrdering Facility: [facility] Address: [address] [place] [address] Performed By: #### 5 7021-8 ####[facility] LABCLIA [id number] [place] [address] Eosinophils (Bld) [#/Vol] 0.17 10*3/uL Normal <0.46 [facility] Comment on above: Order Comment: Speci men Type: BLOOD SPECIMENOrdering Facility: [facility] Address: [address] [place] [address] Performed By: #### 5 7021-8 ####[facility] LABCLIA [id number] [place] [address] Eosinophils/100 WBC (Bld) 1.2 % Normal [facility] Comment on above: Order Comment: Speci men Type: BLOOD SPECIMENOrdering Facility: [facility] Address: [address] [place] [address] Performed By: #### 5 7021-8 ####[facility] LABCLIA [id number] [place] [address] Erythrocyte distribution width (RBC) [Ratio] 14.3 % Normal 11.5-15.0 [facility] Comment on above: Order Comment: Speci men Type: BLOOD SPECIMENOrdering Facility: [facility] Address: [address] [place] [address] Performed By: #### 5 7021-8 ####[facility] LABCLIA [id number] [place] [address] Hematocrit (Bld) [Volume fraction] 39.8 % Normal 36.0-46.0 [facility] Comment on above: Order Comment: Speci men Type: BLOOD SPECIMENOrdering Facility: [facility] Address: [address] [place] [address] Performed By: #### 5 7021-8 ####[facility] LABCLIA [id number] [place] [address] Hemoglobin (Bld) [Mass/Vol] 13.4 g/dL Normal 11.5-15.5 [facility] Comment on above: Order Comment: Speci men Type: BLOOD SPECIMENOrdering Facility: [facility] Address: [address] [place] [address] Performed By: #### 5 7021-8 ####[facility] LABCLIA [id number] [place] [address] Immature granulocytes (Bld) [#/Vol] 0.13 10*3/uL High <0.10 [facility] Comment on above: Order Comment: Speci men Type: BLOOD SPECIMENOrdering Facility: [facility] Address: [address] [place] [address] Performed By: #### 5 7021-8 ####[facility] LABCLIA [id number] [place] [address] Immature granulocytes/100 WBC (Bld) 0.9 % Normal [facility] Comment on above: Order Comment: Speci men Type: BLOOD SPECIMENOrdering Facility: [facility] Address: [address] [place] [address] Performed By: #### 5 7021-8 ####[facility] LABCLIA [id number] [place] [address] Lymphocytes (Bld) [#/Vol] 2.96 10*3/uL Normal 1.00-4.00 [facility] Comment on above: Order Comment: Speci men Type: BLOOD SPECIMENOrdering Facility: [facility] Address: [address] [place] [address] Performed By: #### 5 7021-8 ####[facility] LABCLIA [id number] [place] [address] Lymphocytes/100 WBC (Bld) 20.5 % Normal [facility] Comment on above: Order Comment: Speci men Type: BLOOD SPECIMENOrdering Facility: [facility] Address: [address] [place] [address] Performed By: #### 5 7021-8 ####[facility] LABCLIA [id number] [place] [address] MCH (RBC) [Entitic mass] 31.1 pg Normal 26.0-34.0 [facility] Comment on above: Order Comment: Speci men Type: BLOOD SPECIMENOrdering Facility: [facility] Address: [address] [place] [address] Performed By: #### 5 7021-8 ####[facility] LABCLIA [id number] [place] [address] MCHC (RBC) [Mass/Vol] 33.7 g/dL Normal 30.5-36.0 [facility] Comment on above: Order Comment: Speci men Type: BLOOD SPECIMENOrdering Facility: [facility] Address: [address] [place] [address] Performed By: #### 5 7021-8 ####[facility] LABCLIA [id number] [place] [address] MCV (RBC) [Entitic vol] 92.3 fL Normal 80.0-100.0 [facility] Comment on above: Order Comment: Speci men Type: BLOOD SPECIMENOrdering Facility: [facility] Address: [address] [place] [address] Performed By: #### 5 7021-8 ####[facility] LABCLIA [id number] [place] [address] Monocytes (Bld) [#/Vol] 0.87 10*3/uL High <0.87 [facility] Comment on above: Order Comment: Speci men Type: BLOOD SPECIMENOrdering Facility: [facility] Address: [address] [place] [address] Performed By: #### 5 7021-8 ####[facility] LABCLIA [id number] [place] [address] Monocytes/100 WBC (Bld) 6.0 % Normal [facility] Comment on above: Order Comment: Speci men Type: BLOOD SPECIMENOrdering Facility: [facility] Address: [address] [place] [address] Performed By: #### 5 7021-8 ####[facility] LABCLIA [id number] [place] [address] Neutrophils (Bld) [#/Vol] 10.20 10*3/uL High 1.45-7.50 [facility] Comment on above: Order Comment: Speci men Type: BLOOD SPECIMENOrdering Facility: [facility] Address: [address] [place] [address] Performed By: #### 5 7021-8 ####[facility] LABCLIA [id number] [place] [address] Neutrophils/100 WBC (Bld) 70.8 % Normal [facility] Comment on above: Order Comment: Speci men Type: BLOOD SPECIMENOrdering Facility: [facility] Address: [address] [place] [address] Performed By: #### 5 7021-8 ####[facility] LABCLIA [id number] [place] [address] Nucleated RBC (Bld) [#/Vol] 10*3/uL Normal <0.01 [facility] Comment on above: Order Comment: Speci men Type: BLOOD SPECIMENOrdering Facility: [facility] Address: [address] [place] [address] Performed By: #### 5 7021-8 ####[facility] LABCLIA [id number] [place] [address] Nucleated RBC/100 WBC (Bld) [Ratio] 0.0 /100 WBC Normal [facility] Comment on above: Order Comment: Speci men Type: BLOOD SPECIMENOrdering Facility: [facility] Address: [address] [place] [address] Performed By: #### 5 7021-8 ####[facility] LABCLIA [id number] [place] [address] Platelet mean volume (Bld) [Entitic vol] 10.1 fL Normal 9.0-12.7 [facility] Comment on above: Order Comment: Speci men Type: BLOOD SPECIMENOrdering Facility: [facility] Address: [address] [place] [address] Performed By: #### 5 7021-8 ####[facility] LABCLIA [id number] [place] [address] Platelets (Bld) [#/Vol] 303 10*3/uL Normal 150-400 [facility] Comment on above: Order Comment: Speci men Type: BLOOD SPECIMENOrdering Facility: [facility] Address: [address] [place] [address] Performed By: #### 5 7021-8 ####[facility] LABCLIA [id number] [place] [address] RBC (Bld) [#/Vol] 4.31 10*6/uL Normal 3.90-5.20 [facility] Comment on above: Order Comment: Speci men Type: BLOOD SPECIMENOrdering Facility: [facility] Address: [address] [place] [address] Performed By: #### 5 7021-8 ####[facility] LABCLIA [id number] [place] [address] WBC (Bld) [#/Vol] 14.41 10*3/uL High 3.70-11.00 [facility] Comment on above: Order Comment: Speci men Type: BLOOD SPECIMENOrdering Facility: [facility] Address: [address] [place] [address] Performed By: #### 5 7021-8 ####[facility] LABCLIA [id number] [place] [address] Comprehensive metabolic 2000 panelon 05-19-2024 Albumin [Mass/Vol] 4.0 g/dL 3.9 - 4.9 g/dL [facility] ALP [Catalytic activity/Vol] 79 U/L 34 - 123 U/L [facility] ALT [Catalytic activity/Vol] 25 U/L 7 - 38 U/L [facility] Anion gap [Moles/Vol] 14 mmol/L 8 - 15 mmol/L [facility] AST [Catalytic activity/Vol] 12 U/L Low 13 - 35 U/L [facility] Bilirubin [Mass/Vol] mg/dL Low 0.2 - 1 .3 mg/dL [facility] Calcium [Mass/Vol] 9.4 mg/dL 8.5 - 10. 2 mg/dL [facility] Chloride [Moles/Vol] 105 mmol/L 98 - 10 7 mmol/L [facility] CO2 [Moles/Vol] 21 mmol/L Low 22 - 30 mmol/L [facility] Creatinine [Mass/Vol] 0.49 mg/dL Low 0.58 - 0.96 mg/dL [facility] GFR/1.73 sq M.predicted among non-blacks MDRD (S/P/Bld) [Vol rate/Area] 120 mL/min/{1.73_m2} - PINF [facility] Comment on above: Estimated Glomerular [...] 155 mg/dL High 74 - 99 mg/dL [facility] Comment on above: The [place] Diabete s Association (ADA) provides guidance for [...] Standards of Medical Care in Diabetes 2016, [place] [employer] Association. Diabetes Care. 2016.39(Suppl 1). Interpretation and review of laboratory results Abnormal [facility] Potassium [Moles/Vol] 3.8 mmol/L 3.7 - 5.1 mmol/L [facility] Protein [Mass/Vol] 6.6 g/dL 6.3 - 8.0 g/dL [facility] Sodium [Moles/Vol] 140 mmol/L 136 - 144 mmol/L [facility] Urea nitrogen [Mass/Vol] 12 mg/dL 7 - 21 mg/dL [facility] Albumin [Mass/Vol] 4.0 g/dL Normal 3.9-4.9 [facility] Comment on above: Order Comment: Speci men Type: BLOOD SPECIMENOrdering Facility: [facility] Address: [address] [place] [address] Performed By: #### 2 4323-8 ####[facility] LABCLIA [id number] [place] [address] [place] ALP [Catalytic activity/Vol] 79 U/L Normal 34-123 [facility] Comment on above: Order Comment: Speci men Type: BLOOD SPECIMENOrdering Facility: [facility] Address: [address] [place] [address] Performed By: #### 2 4323-8 ####[facility] LABCLIA [id number] [place] [address] [place] ALT [Catalytic activity/Vol] 25 U/L Normal 7-38 [facility] Comment on above: Order Comment: Speci men Type: BLOOD SPECIMENOrdering Facility: [facility] Address: [address] [place] [address] Performed By: #### 2 4323-8 ####[facility] LABCLIA [id number] [place] [address] [place] Anion gap [Moles/Vol] 14 mmol/L Normal 8-15 [facility] Comment on above: Order Comment: Speci men Type: BLOOD SPECIMENOrdering Facility: [facility] Address: [address] [place] [address] Performed By: #### 2 4323-8 ####[facility] LABCLIA [id number] [place] [address] [place] AST [Catalytic activity/Vol] 12 U/L Low 13-35 [facility] Comment on above: Order Comment: Speci men Type: BLOOD SPECIMENOrdering Facility: [facility] Address: [address] [place], [place] [address] Performed By: #### 2 4323-8 ####[facility] LABCLIA [id number] [place] [address] [place] Bilirubin [Mass/Vol] mg/dL Low 0.2-1.3 [facility] Comment on above: Order Comment: Speci men Type: BLOOD SPECIMENOrdering Facility: [facility] Address: [address] [place], [place] [address] Performed By: #### 2 4323-8 ####[facility] [facility]CL[facility] [id number] [place] [address] [place] Calcium [Mass/Vol] 9.4 mg/dL Normal 8.5-10.2 [facility] Comment on above: Order Comment: Speci men Type: BLOOD SPECIMENOrdering Facility: [facility] Address: [address] [place] [address] Performed By: #### 2 4323-8 ####[facility] LABCLIA [id number] [place] [address] [place] Chloride [Moles/Vol] 105 mmol/L Normal 98-107 [facility] Comment on above: Order Comment: Speci men Type: BLOOD SPECIMENOrdering Facility: [facility] Address: [address] [address] Performed By: #### 2 4323-8 ####[facility] LABCLIA [id number] [place] [id number] [place] CO2 [Moles/Vol] 21 mmol/L Low 22-30 [facility] Comment on above: Order Comment: Speci men Type: BLOOD SPECIMENOrdering Facility: [facility] Address: [address] [place], [place] [address] Performed By: #### 2 4323-8 ####[facility] LABCLIA [id number] [place] [address] [place] Creatinine [Mass/Vol] 0.49 mg/dL Low 0.58-0.96 [facility] Comment on above: Order Comment: Semaj cortés Type: BLOOD SPECIMENOrdering Facility: [facility] Address: [address] [place] [address] Performed By: #### 2 4323-8 ####[facility] LABIA [id number] [address] OF [facility] Creatinine and Glomerular filtration rate.predicted panel (S/P/Bld) 120 mL/min/1.73m??? Normal >=60 [facility] Comment on above: Order Comment: Semaj cortés Type: BLOOD SPECIMENOrdering Facility: [facility] Address: [address] [address] Result Comment: Erin mated Glomerular Filtration Rate [...] actual GFR. Performed By: #### 2 4323-8 ####[facility] LABCLIA [id number] [place] [address] [place] Glucose [Mass/Vol] 155 mg/dL High 74-99 [facility] Comment on above: Order Comment: Semaj cortés Type: BLOOD SPECIMENOrdering Facility: [facility] Address: [address] [place] [address] Result Comment: The [place] Diabetes Association (ADA) provides guidance for cutoff [...] Standards of Medical Care in Diabetes 2016, [place] [employer]. Diabetes Care. 2016.39(Suppl 1). Performed By: #### 2 4323-8 ####[facility] LABCLIA [id number] [address] [address] [place] Potassium [Moles/Vol] 3.8 mmol/L Normal 3.7-5.1 [facility] Comment on above: Order Comment: Speci men Type: BLOOD SPECIMENOrdering Facility: [facility] Address: [address] [place] [address] Performed By: #### 2 4323-8 ####[facility] LABIA [id number] [place] [address] [place] Protein [Mass/Vol] 6.6 g/dL Normal 6.3-8.0 [facility] Comment on above: Order Comment: Speci men Type: BLOOD SPECIMENOrdering Facility: [facility] Address: [address] [place] [address] Performed By: #### 2 4323-8 ####[facility] LABIA [id number] [place] [id number] [place] Sodium [Moles/Vol] 140 mmol/L Normal 136-144 [facility] Comment on above: Order Comment: Speci men Type: BLOOD SPECIMENOrdering Facility: [facility] Address: [address] [place] [address] Performed By: #### 2 4323-8 ####[facility] LABCLIA [id number] [place] [address] [place] Urea nitrogen [Mass/Vol] 12 mg/dL Normal 7-21 [facility] Comment on above: Order Comment: Speci men Type: BLOOD SPECIMENOrdering Facility: [facility] Address: [address] [place] [address] Performed By: #### 2 4323-8 ####[facility] LABIA [id number] [place] [address] [place] ESR Westergren method (Bld) [Velocity]on 05-19-2024 ESR (Bld) [Velocity] 21 mm/h High [facility] Interpretation and review of laboratory results Abnormal [facility] ESR (Bld) [Velocity] 21 mm/h High 0-20 [facility] Comment on above: Order Comment: Speci men Type: BLOOD SPECIMENOrdering Facility: [facility] Address: [address] [place] [address] Performed By: #### 4 537-7 ####[facility] LABIA [id number] [place] [address] [place] FERRITIN BLDon 05-19-2024 Ferritin [Mass/Vol] 20.6 ng/mL 14.7 - 2 05.1 ng/mL [facility] FOLATE SERUMon 05-19-2024 Folate [Mass/Vol] 11.1 ng/mL 4.7 - PINF ng/mL [facility] Ferritin SerPl-mCncon 2023 Ferritin [Mass/Vol] 20.6 ng/mL Normal 14.7-205.1 [facility] Comment on above: Order Comment: Speci men Type: BLOOD SPECIMENOrdering Facility: [facility] Address: [address] [address] Performed By: #### 5 0190-8, 2276-4, 2284-8, 2132-9 ####[facility] LABIA [id number] [place] [address] [place] Folate SerPl-mCncon 05-19-20 Folate [Mass/Vol] 11.1 ng/mL Normal >4.7 [facility] Comment on above: Order Comment: Speci men Type: BLOOD SPECIMENOrdering Facility: [facility] Address: [address] [place] [address] Performed By: #### 5 0190-8, 2275-4, 2283-12, 2132-01 ####[facility] LABCLIA [id number] [place] [id number] [place] Iron and Iron binding capaci ty panelon 05-19-2024 Interpretation and review of laboratory results Abnormal [facility] Iron [Mass/Vol] 47 ug/dL 41 - 186 ug/dL [facility] Iron binding capacity [Mass/Vol] 420 ug/dL High 232 - 386 ug/dL [facility] Iron/TIBC [Molar ratio] 11.2 % Low 15.0 - 57.0 % [facility] Iron [Mass/Vol] 47 ug/dL Normal 41-186 [facility] Comment on above: Order Comment: Speci men Type: BLOOD SPECIMENOrdering Facility: [facility] Address: [address] [place] [address] Performed By: #### 5 0190-8, 2275-08, 2283-12, 2132-01 ####[facility] LABCLIA [id number] [place] [address] [place] Iron binding capacity [Mass/Vol] 420 ug/dL High 232-386 [facility] Comment on above: Order Comment: Speci men Type: BLOOD SPECIMENOrdering Facility: [facility] Address: [address] [place] [address] Performed By: #### 5 0190-8, 4, 2283-12, 2132-01 ####[facility] LABCLIA [id number] [place] [address] [place] Iron/TIBC [Molar ratio] 11.2 % Low 15.0-57.0 [facility] Comment on above: Order Comment: Speci men Type: BLOOD SPECIMENOrdering Facility: [facility] Address: [address] [place] [address] Performed By: #### 5 0190-8, 2275-4, 8, 2132-01 ####[facility] LABCLIA [id number] [place] [id number] [place] No Panel Informationon 05-19 Interpretation and review of laboratory results Normal [facility] VITAMIN B12 BLOODon 05-19-20 24 Cobalamin (Vitamin B12) [Mass/Vol] 632 pg/mL 232 - 1245 pg/mL [facility] Vit B12 SerPl-mCncon 024 Cobalamin (Vitamin B12) [Mass/Vol] 632 pg/mL Normal 232-1245 [facility] Comment on above: Order Comment: Speci men Type: BLOOD SPECIMENOrdering Facility: [facility] Address: [address] [place] [address] Performed By: #### 5 0190-8, 2276-4, 2284-8, 2132-9 ####[facility] LABCLIA [id number] [place] [id number] [place] CNNURSEon 04-26-2024 CNNURSE Normal [facility] CNPNon 04-10-2024 CNPN Normal [facility] ALL CBC WITH AUTO DIFFon BASOPHILS ABSOLUTE AUTO 0.1 [facility] Basophils/100 WBC (Bld) 0.4 % 0.2 - 2.0 % [facility] Eosinophils/100 WBC (Bld) 0.4 % Low 0.9 - 7.0 % [facility] Erythrocyte distribution width (RBC) [Ratio] 15.1 % High 11.0 - 15.0 % [facility] Hematocrit (Bld) [Volume fraction] 39.7 % 36.0 - 48.0 % [facility] Hemoglobin (Bld) [Mass/Vol] 13 g/dL 12.0 - 16.0 g/dL [facility] IMMATURE GRANULOCYTES ABS AUTO 0.1 High [facility] Immature granulocytes/100 WBC (Bld) 0.9 % High 0.0 - 0.5 % [facility] Interpretation and review of laboratory results Abnormal [facility] LYMPHOCYTES ABSOLUTE AUTO 2.1 [facility] Lymphocytes/100 WBC (Bld) 18.4 % Low 20.5 - 60.0 % [facility] MCH (RBC) [Entitic mass] 30.9 pg 26.7 - 34.0 pg [facility] MCHC (RBC) [Mass/Vol] 32.7 g/dL 29.9 - 35.2 g/dL [facility] MCV (RBC) [Entitic vol] 94.3 fL 81.0 - 99.0 fL [facility] MONOCYTES ABSOLUTE AUTO 0.8 [facility] Monocytes/100 WBC (Bld) 6.7 % 1.7 - 12.0 % [facility] NEUTROPHILS ABSOLUTE AUTO 8.3 High [facility] Neutrophils/100 WBC (Bld) 73.2 % 43.0 - 75.0 % [facility] Platelet mean volume (Bld) [Entitic vol] 10.1 fL 9.5 - 13.5 fL [facility] TBH EO # 0.1 [facility] TB PLT 326 [facility] RBC 4.21 [facility] WBC 11.4 High [facility] ALL THYROID STIM HORMONEon 1 06-06-2023 Interpretation and review of laboratory results Abnormal [facility] TSH Qn 0.333 m[IU]/L Low [facility] ALL THYROXINE (T4) FREEon Free T4 [Mass/Vol] 1.01 ng/dL 0.76 - 1. 46 ng/dL [facility] CCF APTTon 04-06-2024 aPTT Coag (Bld) [Time] 25.6 s [facility] MLR HEMOGLOBIN A1Con 024 Glucose [Mass/Vol] 134 mg/dL [facility] HbA1c (Bld) [Mass fraction] 6.3 % High 4.5 - 6.2 % [facility] Comment on above: ADA RECOMMENDED LIMI T 4.0 - 6.0 ADA THERAPEUTIC TARGET < 7.0 ACTION SUGGESTED > 7.0 Interpretation and review of laboratory results Abnormal [facility] No Panel Informationon 04-06 [facility] SRMCOH PROTHROMBIN TIME INR W/O COUMon 04-06-2024 PT Coag (PPP) [Time] 9.6 s [facility] INR <0.93 [facility] Comment on above: DESIRED INR: 2.0-3.0 CONDITIONS NOT LISTED BELOW 2.5-3.5 FOR PROSTHETIC HEART VALVE REPLACEMENT 2.5-3.5 RECURRENT THROMBOSIS TBH PREG QUANT HCGon 024 HCG QUANTITATIVE <1 mIU/mL [facility] Comment on above: 5-50 0.2-1 WEEK 50-500 1-2 WEEKS 100-5,000 2-3 WEEKS 500-10,000 3-4 WEEKS 1,000-50,000 4-5 WEEKS 10,000-100,000 5-6 WEEKS 15,000-200,000 6-8 WEEKS 10,000-100,000 2-3 MONTHS CNPNon 04-02-2024 CNPN Normal [facility] 25(OH)D3 SerPl-mCncon 2023 25-hydroxyvitamin D3 [Mass/Vol] 19.9 ng/mL Low 31.0-80.0 [facility] Comment on above: Order Comment: Speci men Type: BLOOD SPECIMENOrdering Facility: [facility] Address: [address] [place] [address] Result Comment: Clas sification of 25 [place] Vitamin D status:Deficiency/Insufficiency: < or = 30 ng/ml.Sufficiency/Optimal Levels: 31-80 ng/mLToxicity: > 100 ng/mL.Test performed by chemiluminescent immunoassay. Performed By: #### 1 989-3 ####[facility] LABIA [id number] [place] [address] [place] [facility] BLOOD TB SCREENon 03-23-2024 M. tuberculosis tuberculin stim IFN-g Ql (Bld) Negative Normal [facility] Comment on above: Order Comment: Speci men Type: BLOOD SPECIMENOrdering Facility: [facility] Address: [address] [place] [address] Performed By: #### I NFTBP ####[facility] LABCLIA [id number] [place] [address] [place] MITOGEN MINUS NIL >10.00 Normal >=0.50 [facility] Comment on above: Order Comment: Speci men Type: BLOOD SPECIMENOrdering Facility: [facility] Address: [address] [place] [address] Performed By: #### I NFTBP ####[facility] LABCLIA [id number] [place] [address] [place] TB GAMMA INTERPRETATION Normal [facility] Comment on above: Order Comment: Speci men Type: BLOOD SPECIMENOrdering Facility: [facility] Address: [address] [place] [address] Performed By: #### I NFTBP ####[facility] LABCLIA [id number] [place] [address] [place] TB NIL <0.00 Normal <=8.00 [facility] Comment on above: Order Comment: Speci men Type: BLOOD SPECIMENOrdering Facility: [facility] Address: [address] [place] [address] Performed By: #### I NFTBP ####[facility] LABCLIA [id number] [place] [address] [place] TB1 AG MINUS NIL 0.00 IU/mL Normal <0.35 [facility] Comment on above: Order Comment: Speci men Type: BLOOD SPECIMENOrdering Facility: [facility] Address: [address] [place] [address] Performed By: #### I NFTBP ####[facility] LABCLIA [id number] [place] [address] [place] TB2 AG MINUS NIL 0.00 IU/mL Normal <0.35 [facility] Comment on above: Order Comment: Speci men Type: BLOOD SPECIMENOrdering Facility: [facility] Address: [address] [place] [address] Performed By: #### I NFTBP ####[facility] LABCLIA [id number] [place] [address] [place] Bacteria Bld Culton 03-23-20 24 Bacteria identified Cx Nom (Bld) CULTURE, BLOOD: No growth 5 days Normal [facility] Comment on above: Performed By: #### 6 00-7 ####[facility] LABCLIA [id number] [facility] [id number] [id number] [place] CBC W Auto Differential pane l (Bld)on 03-23-2024 Basophils (Bld) [#/Vol] 0.06 10*3/uL Normal <0.11 [facility] Comment on above: Order Comment: Speci men Type: BLOOD SPECIMENOrdering Facility: [facility] Address: [address] [place] [address] Performed By: #### 5 7021-8 ####[facility] LABIA [id number] [place] [address] Basophils/100 WBC (Bld) 0.5 % Normal [facility] Comment on above: Order Comment: Speci men Type: BLOOD SPECIMENOrdering Facility: [facility] Address: [address] [place] [address] Performed By: #### 5 7021-8 ####[facility] LABIA [id number] [place] [address] Differential cell count method Nom (Bld) Auto Normal [facility] Comment on above: Order Comment: Speci men Type: BLOOD SPECIMENOrdering Facility: [facility] Address: [address] [place] [address] Performed By: #### 5 7021-8 ####[facility] LABIA [id number] [place] [address] Eosinophils (Bld) [#/Vol] 0.13 10*3/uL Normal <0.46 [facility] Comment on above: Order Comment: Speci men Type: BLOOD SPECIMENOrdering Facility: [facility] Address: [address] [place] [address] Performed By: #### 5 7021-8 ####[facility] LABIA [id number] [place] [address] Eosinophils/100 WBC (Bld) 1.0 % Normal [facility] Comment on above: Order Comment: Speci men Type: BLOOD SPECIMENOrdering Facility: [facility] Address: [address] [place] [address] Performed By: #### 5 7021-8 ####[facility] LABCLIA [id number] [place] [address] Erythrocyte distribution width (RBC) [Ratio] 15.2 % High 11.5-15.0 [facility] Comment on above: Order Comment: Speci men Type: BLOOD SPECIMENOrdering Facility: [facility] Address: [address] [place] [address] Performed By: #### 5 7021-8 ####[facility] LABCLIA [id number] [place] [address] Hematocrit (Bld) [Volume fraction] 39.3 % Normal 36.0-46.0 [facility] Comment on above: Order Comment: Speci men Type: BLOOD SPECIMENOrdering Facility: [facility] Address: [address] [place] [address] Performed By: #### 5 7021-8 ####[facility] LABIA [id number] [place] [address] Hemoglobin (Bld) [Mass/Vol] 13.1 g/dL Normal 11.5-15.5 [facility] Comment on above: Order Comment: Speci men Type: BLOOD SPECIMENOrdering Facility: [facility] Address: [address] [place] [address] Performed By: #### 5 7021-8 ####[facility] LABCLIA [id number] [place] [address] Immature granulocytes (Bld) [#/Vol] 0.12 10*3/uL High <0.10 [facility] Comment on above: Order Comment: Speci men Type: BLOOD SPECIMENOrdering Facility: [facility] Address: [address] [place] [address] Performed By: #### 5 7021-8 ####[facility] LABCLIA [id number] [place] [address] Immature granulocytes/100 WBC (Bld) 0.9 % Normal [facility] Comment on above: Order Comment: Speci men Type: BLOOD SPECIMENOrdering Facility: [facility] Address: [address] [place] [address] Performed By: #### 5 7021-8 ####[facility] LABCLIA [id number] [place] [address] Lymphocytes (Bld) [#/Vol] 2.03 10*3/uL Normal 1.00-4.00 [facility] Comment on above: Order Comment: Speci men Type: BLOOD SPECIMENOrdering Facility: [facility] Address: [address] [place] [address] Performed By: #### 5 7021-8 ####[facility] LABCLIA [id number] [place] [address] Lymphocytes/100 WBC (Bld) 15.7 % Normal [facility] Comment on above: Order Comment: Speci men Type: BLOOD SPECIMENOrdering Facility: [facility] Address: [address] [place] [address] Performed By: #### 5 7021-8 ####[facility] LABCLIA [id number] [place] [address] MCH (RBC) [Entitic mass] 31.3 pg Normal 26.0-34.0 [facility] Comment on above: Order Comment: Speci men Type: BLOOD SPECIMENOrdering Facility: [facility] Address: [address] [place] [address] Performed By: #### 5 7021-8 ####[facility] LABCLIA [id number] [place] [address] MCHC (RBC) [Mass/Vol] 33.3 g/dL Normal 30.5-36.0 [facility] Comment on above: Order Comment: Speci men Type: BLOOD SPECIMENOrdering Facility: [facility] Address: [address] [place] [address] Performed By: #### 5 7021-8 ####[facility] LABCLIA [id number] [place] [address] MCV (RBC) [Entitic vol] 93.8 fL Normal 80.0-100.0 [facility] Comment on above: Order Comment: Speci men Type: BLOOD SPECIMENOrdering Facility: [facility] Address: [address] [place] [address] Performed By: #### 5 7021-8 ####[facility] LABCLIA [id number] [place] [address] Monocytes (Bld) [#/Vol] 0.65 10*3/uL Normal <0.87 [facility] Comment on above: Order Comment: Speci men Type: BLOOD SPECIMENOrdering Facility: [facility] Address: [address] [place] [address] Performed By: #### 5 7021-8 ####[facility] LABCLIA [id number] [place] [address] Monocytes/100 WBC (Bld) 5.0 % Normal [facility] Comment on above: Order Comment: Speci men Type: BLOOD SPECIMENOrdering Facility: [facility] Address: [address] [place] [address] Performed By: #### 5 7021-8 ####[facility] LABCLIA [id number] [place] [address] Neutrophils (Bld) [#/Vol] 9.90 10*3/uL High 1.45-7.50 [facility] Comment on above: Order Comment: Speci men Type: BLOOD SPECIMENOrdering Facility: [facility] Address: [address] [place] [address] Performed By: #### 5 7021-8 ####[facility] LABCLIA [id number] [place] [address] Neutrophils/100 WBC (Bld) 76.9 % Normal [facility] Comment on above: Order Comment: Speci men Type: BLOOD SPECIMENOrdering Facility: [facility] Address: [address] [place] [address] Performed By: #### 5 7021-8 ####[facility] LABCLIA [id number] [place] [address] Nucleated RBC (Bld) [#/Vol] 10*3/uL Normal <0.01 [facility] Comment on above: Order Comment: Speci men Type: BLOOD SPECIMENOrdering Facility: [facility] Address: [address] [place] [address] Performed By: #### 5 7021-8 ####[facility] LABCLIA [id number] [place] [address] Nucleated RBC/100 WBC (Bld) [Ratio] 0.0 /100 WBC Normal [facility] Comment on above: Order Comment: Speci men Type: BLOOD SPECIMENOrdering Facility: [facility] Address: [address] [place] [address] Performed By: #### 5 7021-8 ####[facility] LABCLIA [id number] [place] [address] Platelet mean volume (Bld) [Entitic vol] 10.0 fL Normal 9.0-12.7 [facility] Comment on above: Order Comment: Speci men Type: BLOOD SPECIMENOrdering Facility: [facility] Address: [address] [place] [address] Performed By: #### 5 7021-8 ####[facility] LABCLIA [id number] [place] [address] Platelets (Bld) [#/Vol] 262 10*3/uL Normal 150-400 [facility] Comment on above: Order Comment: Speci men Type: BLOOD SPECIMENOrdering Facility: [facility] Address: [address] [place] [address] Performed By: #### 5 7021-8 ####[facility] LABCLIA [id number] [place] [address] RBC (Bld) [#/Vol] 4.19 10*6/uL Normal 3.90-5.20 [facility] Comment on above: Order Comment: Speci men Type: BLOOD SPECIMENOrdering Facility: [facility] Address: [address] [place] [address] Performed By: #### 5 7021-8 ####[facility] LABCLIA [id number] [place] [address] WBC (Bld) [#/Vol] 12.89 10*3/uL High 3.70-11.00 [facility] Comment on above: Order Comment: Speci men Type: BLOOD SPECIMENOrdering Facility: [facility] Address: [address] [place] [address] Performed By: #### 5 7021-8 ####[facility] LABCLIA [id number] [place] [address] CNNURSEon 03-23-2024 CNNURSE Normal [facility] CRP SerPl-mCncon 03-23-2024 CRP [Mass/Vol] 0.3 mg/dL Normal <0.9 [facility] Comment on above: Order Comment: Speci men Type: BLOOD SPECIMENOrdering Facility: [facility] Address: [address] [place] [address] Performed By: #### 5 0190-8, 2276-4, 1987-09 ####[facility] LABCLIA [id number] [place] [id number] [place] Comprehensive metabolic 2000 panelon 03-23-2024 Albumin [Mass/Vol] 3.9 g/dL Normal 3.9-4.9 [facility] Comment on above: Order Comment: Speci men Type: BLOOD SPECIMENOrdering Facility: [facility] Address: [address] [place] [address] Performed By: #### 2 4323-8 ####[facility] LABCLIA [id number] [place] [address] [place] ALP [Catalytic activity/Vol] 70 U/L Normal 34-123 [facility] Comment on above: Order Comment: Speci men Type: BLOOD SPECIMENOrdering Facility: [facility] Address: [address] [address] Performed By: #### 2 4323-8 ####[facility] LABCLIA [id number] [place] [address] [place] ALT [Catalytic activity/Vol] 27 U/L Normal 7-38 [facility] Comment on above: Order Comment: Speci men Type: BLOOD SPECIMENOrdering Facility: [facility] Address: [address] [place] [address] Performed By: #### 2 4323-8 ####[facility] LABCLIA [id number] [place] [address] [place] Anion gap [Moles/Vol] 15 mmol/L Normal 8-15 [facility] Comment on above: Order Comment: Speci men Type: BLOOD SPECIMENOrdering Facility: [facility] Address: [address] [place] [address] Performed By: #### 2 4323-8 ####[facility] LABCLIA [id number] [place] [address] [place] AST [Catalytic activity/Vol] 20 U/L Normal 13-35 [facility] Comment on above: Order Comment: Speci men Type: BLOOD SPECIMENOrdering Facility: [facility] Address: [address] [place], [place] [id number] Performed By: #### 2 4323-8 ####[facility] LABCLIA [id number] [place] [address] [place] Bilirubin [Mass/Vol] mg/dL Low 0.2-1.3 [facility] Comment on above: Order Comment: Speci men Type: BLOOD SPECIMENOrdering Facility: [facility] Address: [address] [place] [id number] Performed By: #### 2 4323-8 ####[facility] LABCLIA [id number] [place] [address] [place] Calcium [Mass/Vol] 9.2 mg/dL Normal 8.5-10.2 [facility] Comment on above: Order Comment: Speci men Type: BLOOD SPECIMENOrdering Facility: [facility] Address: [address] [place], [place] [id number] Performed By: #### 2 4323-8 ####[facility] LABCLIA [id number] [place] [address] [place] Chloride [Moles/Vol] 104 mmol/L Normal 98-107 [facility] Comment on above: Order Comment: Speci men Type: BLOOD SPECIMENOrdering Facility: [facility] Address: [address] [address] Performed By: #### 2 4323-8 ####[facility] LABCLIA [id number] [place] [address] [place] CO2 [Moles/Vol] 20 mmol/L Low 22-30 [facility] Comment on above: Order Comment: Speci men Type: BLOOD SPECIMENOrdering Facility: [facility] Address: [address] [place], [place] [id number] Performed By: #### 2 4323-8 ####[facility] LABCLIA [id number] [place] [id number] [place] Creatinine [Mass/Vol] 0.61 mg/dL Normal 0.58-0.96 [facility] Comment on above: Order Comment: Speci men Type: BLOOD SPECIMENOrdering Facility: [facility] Address: [address] [place], [place] [phone] Performed By: #### 2 4323-8 ####[facility] LABCLIA [id number] [place] [id number] [place] Creatinine and Glomerular filtration rate.predicted panel (S/P/Bld) 114 mL/min/1.73m??? Normal >=60 [facility] Comment on above: Order Comment: Semaj cortés Type: BLOOD SPECIMENOrdering Facility: [facility] Address: [address] [place] [address] Result Comment: Erin mated Glomerular Filtration Rate [...] actual GFR. Performed By: #### 2 4323-8 ####[facility] LABCLIA [id number] [place] [address] [place] Glucose [Mass/Vol] 152 mg/dL High 74-99 [facility] Comment on above: Order Comment: Semaj cortés Type: BLOOD SPECIMENOrdering Facility: [facility] Address: [address] [place] [address] Result Comment: The [place] Diabetes Association (ADA) provides guidance for cutoff [...] Standards of Medical Care in Diabetes 2016, [place] [employer]. Diabetes Care. 2016.39(Suppl 1). Performed By: #### 2 4323-8 ####[facility] LABIA [id number] [place] [address] [place] Potassium [Moles/Vol] 4.3 mmol/L Normal 3.7-5.1 [facility] Comment on above: Order Comment: Speci men Type: BLOOD SPECIMENOrdering Facility: [facility] Address: [address] [place] [address] Performed By: #### 2 4323-8 ####[facility] LABCLIA [id number] [place] [address] [place] Protein [Mass/Vol] 6.6 g/dL Normal 6.3-8.0 [facility] Comment on above: Order Comment: Speci men Type: BLOOD SPECIMENOrdering Facility: [facility] Address: [address] [place] [address] Performed By: #### 2 4323-8 ####[facility] LABCLIA [id number] [place] [address] [place] Sodium [Moles/Vol] 139 mmol/L Normal 136-144 [facility] Comment on above: Order Comment: Speci men Type: BLOOD SPECIMENOrdering Facility: [facility] Address: [address] [place] [address] Performed By: #### 2 4323-8 ####[facility] LABCLIA [id number] [place] [address] [place] Urea nitrogen [Mass/Vol] 20 mg/dL Normal 7-21 [facility] Comment on above: Order Comment: Speci men Type: BLOOD SPECIMENOrdering Facility: [facility] Address: [address] [place] [address] Performed By: #### 2 4323-8 ####[facility] LABCLIA [id number] [place] [address] [place] ESR Westergren method (Bld) [Velocity]on 03-23-2024 ESR (Bld) [Velocity] 27 mm/h High 0-20 [facility] Comment on above: Order Comment: Speci men Type: BLOOD SPECIMENOrdering Facility: [facility] Address: [address] [place] [address] Performed By: #### 4 537-7 ####[facility] LABCLIA [id number] [place] [address] [place] Ferritin [facility] 2023 Ferritin [Mass/Vol] 33.3 ng/mL Normal 14.7-205.1 [facility] Comment on above: Order Comment: Speci men Type: BLOOD SPECIMENOrdering Facility: [facility] Address: [address] [place] [address] Performed By: #### 5 0190-8, 2276-4, 1987-09 ####[facility] LABIA [id number] [place] [address] [place] Folate SerPl-nc 03-23-20 Folate [Mass/Vol] 13.0 ng/mL Normal >4.7 [facility] Comment on above: Order Comment: Speci men Type: BLOOD SPECIMENOrdering Facility: [facility] Address: [address] [place] [address] Performed By: #### 2 132-9, 2284-8 ####[facility] LABIA [id number] [place] [address] [place] HCG ( test) Ql (U)o n 03-23-2024 Interpretation and review of laboratory results Normal [facility] Preg Test, Ur Negative Negative [facility] IMMUNOGLOBULINS,IGG,IGA,IGMo n 03-23-2024 IgA [Mass/Vol] 171 mg/dL Normal 70-400 [facility] Comment on above: Order Comment: Speci men Type: BLOOD SPECIMENOrdering Facility: [facility] Address: [address] [place] [address] Performed By: #### S ERIMM ####[facility] LABIA [id number] [place] [address] [place] IgG [Mass/Vol] 476 mg/dL Low 700-1600 [facility] Comment on above: Order Comment: Speci men Type: BLOOD SPECIMENOrdering Facility: [facility] Address: [address] [place] [address] Performed By: #### S ERIMM ####[facility] LABCLIA [id number] [place] [address] [place] IgM [Mass/Vol] 373 mg/dL High 40-230 [facility] Comment on above: Order Comment: Speci men Type: BLOOD SPECIMENOrdering Facility: [facility] Address: [address] [place] [address] Performed By: #### S ERIMM ####[facility] LABCLIA [id number] [place] [address] [place] Iron and Iron binding capaci ty panelon 03-23-2024 Iron [Mass/Vol] 67 ug/dL Normal 41-186 [facility] Comment on above: Order Comment: Speci men Type: BLOOD SPECIMENOrdering Facility: [facility] Address: [address] [place] [address] Performed By: #### 5 0190-8, 2275-08, 1987-09 ####[facility] LABIA [id number] [place] [address] [place] Iron binding capacity [Mass/Vol] 399 ug/dL High 232-386 [facility] Comment on above: Order Comment: Speci men Type: BLOOD SPECIMENOrdering Facility: [facility] Address: [address] [place] [address] Performed By: #### 5 0190-8, 2275-08, 1987-09 ####[facility] LABIA [id number] [place] [address] [place] Iron/TIBC [Molar ratio] 16.8 % Normal 15.0-57.0 [facility] Comment on above: Order Comment: Speci men Type: BLOOD SPECIMENOrdering Facility: [facility] Address: [address] [place] [address] Performed By: #### 5 0190-8, 2275-08, 1987- ####[facility] LABCLIA [id number] [place] [address] [place] Urinalysis macro (dipstick) panel (U)on 03-23-2024 Bilirubin, UA Negative Negative - 4(70) +++ mg/dL [facility] Blood, UA Positive Negative - 50 Dusty/mcL [facility] Comment on above: large Clarity, UA Cloudy [facility] Color, UA Dark Georgie [facility] Glucose, UA Positive Negative - 1999(110) ++++ mg/dL [facility] Comment on above: 100 mg Interpretation and review of laboratory results Abnormal [facility] Ketones, UA Negative Negative - 160(16) ++++ mg/dL [facility] Leukocytes, UA Positive Negative - 500+++ Andi/mcL [facility] Comment on above: small Nitrite, UA Negative Negative - Positive [facility] pH, UA 5.5 5 - 9 [facility] Protein, UA Positive Negative - 1999(20) ++++ mg/dL [facility] Comment on above: 30 mg Spec Grav, UA 1.03 1 - 1.03 [facility] Urobilinogen, UA 0.2 0.2 - 12 mg/dL [facility] Vit B12 [facility] 024 Cobalamin (Vitamin B12) [Mass/Vol] 607 pg/mL Normal 232-1245 [facility] Comment on above: Order Comment: Speci men Type: BLOOD SPECIMENOrdering Facility: [facility] Address: [address] [place] [address] Performed By: #### 2 132-9, 2284-8 ####[facility] LABCLIA [id number] [place] [address] [place] Office Visiton 03-08-2024 Follow-up visit [id number] Ariadna Haley 1980 F Date Provider Department Center 03/08/2024 Renny-CALOS MENDOZA [facility] Family History Problem Relation Age of Onset Heart failure Maternal Grandmother Heart attack Maternal Grandfather Family Status - Relation Status Age at Maternal Grandmother Maternal Grandfather Level of Service:55454 PA OFFICE/OUTPATIENT NEW MODERATE MDM [address] [facility] HCG ( test) IA.chandai d Ql (U)Ordered By: Adolfo Kang on 02-16-2024 HCG ( test) Ql (U) Negative [facility] HCG,Urineon 02-16-2024 Beta HCG ( test) Ql (U) Negative Normal [facility] Comment on above: Result Comment: PERF ORMED BY: [place] [address] PATHOLOGIST SUBSCRIPTION AGENT OFE CANNON M.D. Performed By: #### U HCG #### [address] ECG 12 Leadon 07-13-2023 ECG revealed normal sinus rhythm [facility] Work Phone: CBC AUTO DIFFon 09-24-2022 BASO # 0.1 103/ul Normal 0.0-0.1 [facility] Comment on above: Performed By: #### U AMIC #### [facility] [address] [address] [address] Manda York Basophils/100 WBC (Bld) 0.6 % Normal 0.2-2.0 [facility] Comment on above: Performed By: #### U AMIC #### [facility] [address] [place] [address] [address] Manda York EO # 0.1 103/ul Normal 0.0-0.7 [facility] Comment on above: Performed By: #### U AMIC #### [facility] [address] [place] [address] [address] Manda York Eosinophils/100 WBC (Bld) 0.6 % Critically low 0.9-7.0 [facility] Comment on above: Performed By: #### U AMIC #### [facility] [address] [place] [address] [address] Manda York Erythrocyte distribution width (RBC) [Ratio] 14.6 % Normal 11.0-15.0 [facility] Comment on above: Performed By: #### U AMIC #### [facility] [address] [place] [address] [address] Manda York Hematocrit (Bld) [Volume fraction] 43.4 % Normal 36.0-48.0 [facility] Comment on above: Performed By: #### U AMIC #### [facility] [address] [place] [address] [address] Manda York Hemoglobin (Bld) [Mass/Vol] 13.7 g/dL Normal 12.0-16.0 [facility] Comment on above: Performed By: #### U AMIC #### [facility] [address] [place] [address] [address] Manda York IG # 0.12 10e3/ul Critically high 0.00-0.03 [facility] Comment on above: Performed By: #### U AMIC #### [facility] [address] [place] [address] [address] Manda York IG % 0.8 % Critically high 0.0-0.5 [facility] Comment on above: Performed By: #### U AMIC #### [facility] [address] [place] [address] [address] Manda York LYMPH # 2.6 103/ul Normal 1.2-3.8 [facility] Comment on above: Performed By: #### U AMIC #### [facility] [address] [place] [address] [address] Manda York Lymphocytes/100 WBC (Bld) 18.3 % Critically low 20.5-60.0 [facility] Comment on above: Performed By: #### U AMIC #### [facility] [address] [place] [address] [address] Manda York MANUAL DIFF REQ NO Normal [facility] Comment on above: Performed By: #### U AMIC #### [facility] [address] [place] [address] [address] Manda York MCH (RBC) [Entitic mass] 29.0 pg Normal 26.7-34.0 [facility] Comment on above: Performed By: #### U AMIC #### [facility] [address] [place] [address] [address] Manda York MCHC (RBC) [Mass/Vol] 31.6 g/dL Normal 29.9-35.2 [facility] Comment on above: Performed By: #### U AMIC #### [facility] [address] [place] [address] [address] Manda York MCV (RBC) [Entitic vol] 91.8 fL Normal 81.0-99.0 [facility] Comment on above: Performed By: #### U AMIC #### [facility] [address] [place] [address] [address] Manda York MONO # 0.7 103/ul Normal 0.3-0.8 [facility] Comment on above: Performed By: #### U AMIC #### [facility] [address] [place] [address] [address] Manda York Monocytes/100 WBC (Bld) 5.1 % Normal 1.7-12.0 [facility] Comment on above: Performed By: #### U AMIC #### [facility] [address] [place] [address] [address] Manda York NEUT # 10.6 103/ul Critically high 1.4-6.5 [facility] Comment on above: Performed By: #### U AMIC #### [facility] [address] [place] [address] [address] Manda York Neutrophils/100 WBC (Bld) 74.6 % Normal 43.0-75.0 [facility] Comment on above: Performed By: #### U AMIC #### [facility] [address] [place] [address] [address] Manda York Platelet mean volume (Bld) [Entitic vol] 9.4 fL Critically low 9.5-13.5 [facility] Comment on above: Performed By: #### U AMIC #### [facility] [address] [place] [address] [address] Manda York PLT 307 103/ul Normal 150-450 [facility] Comment on above: Performed By: #### U AMIC #### [facility] [address] [place] [address] [address] Manda York RBC 4.73 106/ul Normal 4.20-5.40 [facility] Comment on above: Performed By: #### U AMIC #### [facility] [address] [place] [address] [address] Manda York WBC 14.2 103/ul Critically high 4.0-11.0 [facility] Comment on above: Performed By: #### U AMIC #### [facility] [address] [address] [address] Manda York FREE T4on 09-24-2022 Free T4 [Mass/Vol] 1.31 ng/dL Normal 0.76-1.46 [facility] Comment on above: Performed By: #### F T4 #### [facility] [address] [place] [address] Dr. Manda York GLYCOHEMOGLOBIN A1Con 2022 ADA RECOMMENDATION SEE BELOW Normal [facility] Comment on above: Result Comment: ADA RECOMMENDED LIMIT 4.0 - 6.0 ADA THERAPEUTIC TARGET < 7.0 ACTION SUGGESTED > 7.0 Performed By: #### A 1C #### [facility] [address] [place] [address] Dr. Manda York Glucose [Mass/Vol] 120 mg/dL Normal [facility] Comment on above: Performed By: #### A 1C #### [facility] [address] [place] [address] Dr. Manda York HbA1c (Bld) [Mass fraction] 5.8 % Normal 4.5-6.2 [facility] Comment on above: Performed By: #### A 1C #### [facility] [address] [place] [address] Dr. Manda York PREG QUANT HCGon 09-24-2022 HCG QUANT <1 Normal [facility] Comment on above: Performed By: #### F T4 #### [facility] [address] [place] [address] Dr. Manda York HCG RANGE SEE BELOW Normal [facility] Comment on above: Result Comment: 5-50 0.2-1 WEEK 50-500 1-2 WEEKS 100-5,000 2-3 WEEKS 500-10,000 3-4 WEEKS 1,000-50,000 4-5 WEEKS 10,000-100,000 5-6 WEEKS 15,000-200,000 6-8 WEEKS 10,000-100,000 2-3 MONTHS Performed By: #### F T4 #### [facility] [address] [place] [address] Dr. Manda York PROTIMEon 09-24-2022 INR Coag (PPP) [Relative time] {INR} Normal [facility] Comment on above: Performed By: #### F T4 #### [facility] [address] [place] [address] Dr. Manda York INR GUIDELINES SEE BELOW Normal [facility] Comment on above: Result Comment: SHERRY RED INR: 2.0 - 3.0 CONDITIONS NOT LISTED BELOW 2.5 - 3.5 FOR PROSTHETIC HEART VALVE REPLACEMENT 2.5 - 3.5 RECURRENT THROMBOSIS Performed By: #### F T4 #### [facility] [address] [place] [address] Dr. Manda York PT Coag (PPP) [Time] 9.6 s Normal 9.0-11.6 [facility] Comment on above: Performed By: #### F T4 #### [facility] [address] [place] [address] Dr. Manda York PTTon 09-24-2022 aPTT Coag (Bld) [Time] 28.2 s Normal 22.3-36.2 [facility] Comment on above: Performed By: #### F T4 #### [facility] [address] [place] [address] Dr. Manda York TSHon 09-24-2022 TSH 0.300 uIU/mL Critically low 0.358-3.740 [facility] Comment on above: Performed By: #### F T4 #### [facility] [address] [place] [address] Dr. Manda York US PELVIS TRANSVAGon 023 [...] by: AURORA SHAIKH Date: 2022-09-24 17:50 Normal [facility] PAP ACOG PANEL 2: 30 to 65on 09-18-2022 . . Normal [facility] Comment on above: Result Comment: Perf ormed at: WB Performed By: #### F T4 #### [facility] [address] [place] [address] Dr. Manda York Age Gdln ACOG Testing 30-65 Normal [facility] Comment on above: Performed By: #### F T4 #### [facility] [address] [place] [address] Dr. Manda York DIAGNOSIS: Comment Normal [facility] Comment on above: Result Comment: NEGA TIVE FOR INTRAEPITHELIAL LESION OR MALIGNANCY. Performed at: [facility] Performed By: #### F T4 #### [facility] [address] [address] [address] Manda York HPV Aptima Negative Normal Negative [facility] Comment on above: Result Comment: This nucleic acid amplification test detects fourteen high-risk HPV types (16,18,31,33,35,39,45,51,52,56,58,59,66,68) without differentiation. Performed at: =G Performed By: #### F T4 #### [facility] [address] [address] [address] Manda York HPV Genotype Reflex Comment Normal [facility] Comment on above: Result Comment: Crit eria not met, HPV Genotype not performed. Performed at: [facility] Performed By: #### F T4 #### [facility] [address] [address] [address] Manda York Methodology: Comment Normal [facility] Comment on above: Result Comment: This liquid based ThinPrep(R) pap test was screened with the use of an image guided system. Performed at: WB Performed By: #### F T4 #### [facility] [address] [address] [address] Manda York Note: Comment Normal [facility] Comment on above: Result Comment: [...] WB Performed By: #### F T4 #### [facility] [address] [address] [address] Manda York Performed by: Comment Normal [facility] Comment on above: Result Comment: Lorena Pteers, [employer] Cell Systems Engineer (ASCP) Performed at: [facility] Performed By: #### F T4 #### [facility] [address] [place] [address] Dr. Manda York Specimen adequacy: Comment Normal [facility] Comment on above: Result Comment: Sati sfactory for evaluation. Endocervical and/or squamous metaplastic cells (endocervical component) are present. Performed at: [facility] Performed By: #### F T4 #### [facility] [address] [address] [address] Manda York Cytology Cervical or vaginal smear or scraping studyOrdered By: Hazel Torres on 09-10-2022 [facility] MG MAMM SCREEN 3D SELENE CADon 09-01-2022 MG MAMM SCREEN 3D SELENE CAD Patient: ARIADNA HALEY Exam Date: 09/01/2022 : 1980 Gender:F Ordering : DR MANUEL FERRIS . Admission #: [id number] Family : Order #: [id number] CLICK HERE TO VIEW EXAM RADIOLOGY REPORT [...] stomach cancer at age 56. LOCATION: [facility] BREAST COMPOSITION: Scattered areas fibroglandular [...] M.D. on 09/02/2022 at 12:32 Normal [facility] MRI KNEE RT WO CONon [...] MANUEL GOMEZ Date: 2022-04-01 08:24 Normal [facility] PNEUMOCOCCAL IGG ABS, 23 SER OTYPESon 03-21-2022 Pneumococcal Interpretation See Note [facility] S. pneumoniae 1 IgG (S) [Mass/Vol] 0.27 ug/mL [facility] S. pneumoniae 12 IgG (S) [Mass/Vol] 0.08 ug/mL [facility] S. pneumoniae 14 IgG (S) [Mass/Vol] 0.19 ug/mL [facility] S. pneumoniae 17 IgG (S) [Mass/Vol] 1.72 ug/mL [facility] S. pneumoniae 19 IgG (S) [Mass/Vol] 1.52 ug/mL [facility] S. pneumoniae 2 IgG (S) [Mass/Vol] 0.44 ug/mL [facility] S. pneumoniae 20 IgG (S) [Mass/Vol] 1.53 ug/mL [facility] S. pneumoniae 22 IgG (S) [Mass/Vol] 0.99 ug/mL [facility] S. pneumoniae 23 IgG (S) [Mass/Vol] 0.14 ug/mL [facility] S. pneumoniae 3 IgG (S) [Mass/Vol] 0.36 ug/mL [facility] S. pneumoniae 34 IgG (S) [Mass/Vol] 5.77 ug/mL [facility] S. pneumoniae 4 IgG (S) [Mass/Vol] 0.06 ug/mL [facility] S. pneumoniae 43 IgG (S) [Mass/Vol] 0.93 ug/mL [facility] S. pneumoniae 5 IgG (S) [Mass/Vol] 0.89 ug/mL [facility] S. pneumoniae 8 IgG (S) [Mass/Vol] 0.58 ug/mL [facility] S. pneumoniae 9 IgG (S) [Mass/Vol] 0.4 ug/mL [facility] S. pneumoniae Liberian type 15B IgG (S) [Mass/Vol] 8.27 ug/mL [facility] S. pneumoniae Liberian type 18C IgG (S) [Mass/Vol] 0.39 ug/mL [facility] S. pneumoniae Liberian type 19A IgG (S) [Mass/Vol] 17.72 ug/mL [facility] S. pneumoniae Liberian type 33F IgG (S) [Mass/Vol] 3.04 ug/mL [facility] S. pneumoniae Liberian type 6B IgG (S) [Mass/Vol] 0.82 ug/mL [facility] S. pneumoniae Liberian type 7F IgG (S) [Mass/Vol] 0.34 ug/mL [facility] S. pneumoniae Liberian type 9V IgG (S) [Mass/Vol] 0.78 ug/mL [facility] XR KNEE RT 4V or [...] by: KRISTINA GARRETT Date: 2022-03-21 16:47 [facility] DIPHTHER/TETANUS ABon 2021 C. diphtheriae IgG Qn (S) 0.1 IU/mL [facility] C. tetani toxoid IgG IA Qn 1 IU/mL [facility] IGA BLDon 03-18-2022 IgA [Mass/Vol] 182 mg/dL 70 - 400 mg/dL [facility] IGE BLDon 03-18-2022 IgE Qn 12.3 kU/l <114.0 kU/l [facility] IGGon 03-18-2022 IgG [Mass/Vol] 618 mg/dL Low 700 - 1,600 mg/dL [facility] IGMon 03-18-2022 IgM [Mass/Vol] 514 mg/dL High 40 - 230 mg/dL [facility] Immunodeficiency panel FC (B ld)on 03-18-2022 CD3 cells (Bld) [#/Vol] 2841 cells/uL High 958 - 2,388 cells/uL [facility] CD3 cells/100 cells (Bld) 81 % 60 - 89 % [facility] CD3+CD4+ (T4 helper) cells (Bld) [#/Vol] 1621 cells/uL 533 - 1,674 cells/uL [facility] CD3+CD4+ (T4 helper) cells/100 cells (Bld) 46 % 34 - 61 % [facility] CD3+CD4+ (T4 helper) cells/CD3+CD8+ (T8 suppressor cells) cells (Bld) [# ratio] 1.55 % 1.10 - 3.25 [facility] CD3+CD8+ (T8 suppressor cells) cells (Bld) [#/Vol] 1049 cells/uL High 175 - 958 cells/uL [facility] CD3+CD8+ (T8 suppressor cells) cells/100 cells (Bld) 30 % 10 - 41 % [facility] CD3-CD16+CD56+ (Natural killer) cells (Bld) [#/Vol] 193 cells/uL 102 - 565 cells/uL [facility] CD3-CD16+CD56+ (Natural killer) cells/100 cells (Bld) 5 % 5 - 25 % [facility] CD3-CD19+ cells (Bld) [#/Vol] 475 cells/uL 75 - 660 cells/uL [facility] CD3-CD19+ cells/100 cells (Bld) 13 % 5 - 22 % [facility] CBC W Auto Differential pane l (Bld)on 03-17-2022 Basophils (Bld) [#/Vol] 0.07 10*3/uL <0.11 k/uL [facility] Basophils/100 WBC (Bld) 0.6 % [facility] Differential cell count method Nom (Bld) Auto [facility] Eosinophils (Bld) [#/Vol] 0.18 10*3/uL <0.46 k/uL [facility] Eosinophils/100 WBC (Bld) 1.6 % [facility] Erythrocyte distribution width (RBC) [Ratio] 14.6 % 11.5 - 15.0 % [facility] Hematocrit (Bld) [Volume fraction] 40.5 % 36.0 - 46.0 % [facility] Hemoglobin (Bld) [Mass/Vol] 13.0 g/dL 11.5 - 15.5 g/dL [facility] Immature granulocytes (Bld) [#/Vol] 0.06 10*3/uL <0.10 k/uL [facility] Immature granulocytes/100 WBC (Bld) 0.5 % [facility] Lymphocytes (Bld) [#/Vol] 2.97 10*3/uL 1.00 - 4.00 k/uL [facility] Lymphocytes/100 WBC (Bld) 26.9 % [facility] MCH (RBC) [Entitic mass] 28.4 pg 26.0 - 34.0 pg [facility] MCHC (RBC) [Mass/Vol] 32.1 g/dL 30.5 - 36.0 g/dL [facility] MCV (RBC) [Entitic vol] 88.4 fL 80.0 - 100.0 fL [facility] Monocytes (Bld) [#/Vol] 0.79 10*3/uL <0.87 k/uL [facility] Monocytes/100 WBC (Bld) 7.2 % [facility] Neutrophils (Bld) [#/Vol] 6.97 10*3/uL 1.45 - 7.50 k/uL [facility] Neutrophils/100 WBC (Bld) 63.2 % [facility] Nucleated RBC (Bld) [#/Vol] <0.01 k/uL [facility] Nucleated RBC/100 WBC (Bld) [Ratio] 0.0 /100 WBC [facility] Platelet mean volume (Bld) [Entitic vol] 9.9 fL 9.0 - 12.7 fL [facility] Platelets (Bld) [#/Vol] 314 10*3/uL 150 - 400 k/uL [facility] RBC (Bld) [#/Vol] 4.58 10*6/uL 3.90 - 5.2 0 m/uL [facility] WBC (Bld) [#/Vol] 11.04 10*3/uL High 3.70 - 11 .00 k/uL [facility] ECHOCARDIO M/2D COMPLETEon 1 ECHOCARDIO M/2D COMPLETE Patient: ARIADNA HALEY Exam Date: 03/12/2022 : 1980 Gender:F Ordering : DR MANUEL FERRIS . Admission #: [id number] Family : Order #: [id number] CLICK HERE TO VIEW EXAM ECHOCARDIOGRAM REPORT [...] M.D. on 03/16/2022 at 16:47 Normal [facility] INSULINon 03-11-2022 Insulin 17.8 uIU/mL Normal 2.6-24.9 [facility] Comment on above: Performed By: #### C BC #### [facility] [address] [address] [address] Manda York CBC AUTO DIFFon 03-09-2022 BASO # 0.1 103/ul Normal 0.0-0.1 [facility] Comment on above: Performed By: #### C BC #### [facility] [address] [place] [address] Dr. Manda York Basophils/100 WBC (Bld) 0.4 % Normal 0.2-2.0 [facility] Comment on above: Performed By: #### C BC #### [facility] [address] [place] [address] Dr. Manda York EO # 0.2 103/ul Normal 0.0-0.7 [facility] Comment on above: Performed By: #### C BC #### [facility] [address] [place] [address] Dr. Manda York Eosinophils/100 WBC (Bld) 1.2 % Normal 0.9-7.0 [facility] Comment on above: Performed By: #### C BC #### [facility] [address] [place] [address] Dr. Manda York Erythrocyte distribution width (RBC) [Ratio] 14.6 % Normal 11.0-15.0 [facility] Comment on above: Performed By: #### C BC #### [facility] [address] [place] [address] Dr. Manda York Hematocrit (Bld) [Volume fraction] 39.2 % Normal 36.0-48.0 [facility] Comment on above: Performed By: #### C BC #### [facility] [address] [place] [address] Dr. Manda York Hemoglobin (Bld) [Mass/Vol] 12.7 g/dL Normal 12.0-16.0 [facility] Comment on above: Performed By: #### C BC #### [facility] [address] [place] [address] Dr. Manda York IG # 0.06 10e3/ul Critically high 0.00-0.03 [facility] Comment on above: Performed By: #### C BC #### [facility] [address] [place] [address] Dr. Manda York IG % 0.5 % Normal 0.0-0.5 [facility] Comment on above: Performed By: #### C BC #### [facility] [address] [place] [address] Dr. Manda York LYMPH # 3.7 103/ul Normal 1.2-3.8 [facility] Comment on above: Performed By: #### C BC #### [facility] [address] [place] [address] Dr. Manda York Lymphocytes/100 WBC (Bld) 31.0 % Normal 20.5-60.0 [facility] Comment on above: Performed By: #### C BC #### [facility] [address] [place] [address] Dr. Manda York MANUAL DIFF REQ NO Normal [facility] Comment on above: Performed By: #### C BC #### [facility] [address] [place] [address] Dr. Manda York MCH (RBC) [Entitic mass] 28.9 pg Normal 26.7-34.0 [facility] Comment on above: Performed By: #### C BC #### [facility] [address] [place] [address] Dr. Manda York MCHC (RBC) [Mass/Vol] 32.4 g/dL Normal 29.9-35.2 [facility] Comment on above: Performed By: #### C BC #### [facility] [address] [place] [address] Dr. Manda York MCV (RBC) [Entitic vol] 89.1 fL Normal 81.0-99.0 [facility] Comment on above: Performed By: #### C BC #### [facility] [address] [place] [address] Dr. Manda York MONO # 0.7 103/ul Normal 0.3-0.8 [facility] Comment on above: Performed By: #### C BC #### [facility] [address] [address] [address] Manda York Monocytes/100 WBC (Bld) 5.8 % Normal 1.7-12.0 [facility] Comment on above: Performed By: #### C BC #### [facility] [address] [address] [address] Manda York NEUT # 7.3 103/ul Critically high 1.4-6.5 [facility] Comment on above: Performed By: #### C BC #### [facility] [address] [address] [address] Manda York Neutrophils/100 WBC (Bld) 61.1 % Normal 43.0-75.0 [facility] Comment on above: Performed By: #### C BC #### [facility] [address] [place] [address] Dr. Manda York Platelet mean volume (Bld) [Entitic vol] 9.7 fL Normal 9.5-13.5 [facility] Comment on above: Performed By: #### C BC #### [facility] [address] [place] [address] Dr. Manda York PLT 297 103/ul Normal 150-450 [facility] Comment on above: Performed By: #### C BC #### [facility] [address] [place] [address] Dr. Manda York RBC 4.40 106/ul Normal 4.20-5.40 [facility] Comment on above: Performed By: #### C BC #### [facility] [address] [place] [address] Dr. Manda York WBC 12.0 103/ul Critically high 4.0-11.[address] [facility] Comment on above: Performed By: #### C BC #### [facility] [address] [place] [address] Dr. Manda York FREE THYROXINE INDEX T7on FTI 3.81 Normal 1.30-4.50 [facility] Comment on above: Performed By: #### U AMIC #### [facility] [address] [address] [address] Manda York T3U 34.0 % Normal 30.0-39.0 [facility] Comment on above: Performed By: #### U AMIC #### [facility] [address] [address] [address] Manda York T4 [Mass/Vol] 11.20 ug/dL Normal 4.80-13.[address] [facility] Comment on above: Performed By: #### U AMIC #### [facility] [address] [address] [address] Manda York GLYCOHEMOGLOBIN A1Con 2021 ADA RECOMMENDATION SEE BELOW Normal [facility] Comment on above: Result Comment: ADA RECOMMENDED LIMIT 4.0 - 6.0 ADA THERAPEUTIC TARGET < 7.0 ACTION SUGGESTED > 7.0 Performed By: #### S LUIGI MELO #### [facility] [address] [address] [address] Manda York Glucose [Mass/Vol] 117 mg/dL Normal [facility] Comment on above: Performed By: #### S LEANN MELOC #### [facility] [address] [address] [address] Manda York HbA1c (Bld) [Mass fraction] 5.7 % Normal 4.5-6.2 [facility] Comment on above: Performed By: #### LEANN PATRICKC #### [facility] [address] [address] [address] Manda York IRONon 03-09-2022 Iron [Mass/Vol] 61.0 ug/dL Normal 50.0-170.0 [facility] Comment on above: Performed By: #### C BC #### [facility] [address] [place] [address] Dr. Manda York LIPID PROFILEon 03-09-2022 CHOL-HDL RATIO NORM SEE BELOW Normal [facility] Comment on above: Result Comment: 3.3 - 4.4 LOW RISK 4.4 - 7.1 AVERAGE RISK 7.1 - 11.0 MODERATE RISK >11.0 HIGH RISK Performed By: #### U AMIC #### [facility] [address] [address] [address] Manda York Cholesterol [Mass/Vol] 260 mg/dL Critically high <=200 [facility] Comment on above: Performed By: #### U AMIC #### [facility] [address] [place], [place] [address] Dr. Manda York Cholesterol in HDL [Mass/Vol] 38 mg/dL Critically low 40-60 [facility] Comment on above: Performed By: #### U AMIC #### [facility] [address] [address] [address] Manda York Cholesterol in LDL [Mass/Vol] 170.8 mg/dL Normal [facility] Comment on above: Performed By: #### U AMIC #### [facility] [address] [address] [address] Manda York Cholesterol.total/Chol esterol in HDL [Mass ratio] 6.8 {ratio} Normal [facility] Comment on above: Performed By: #### U AMIC #### [facility] [address] [address] [address] Manda York HDL NORMAL > or = 60 mg/dl - LO W CARDIOVASCULAR RISK <40 mg/dl - HIGH CARDIOVASCULAR RISK Normal [facility] Comment on above: Performed By: #### U AMIC #### [facility] [address] [address] [address] Manda York LDL CALC NORMAL SEE BELOW Normal [facility] Comment on above: Result Comment: <100 mg/dl OPTIMAL 100 - 129 mg/dl NEAR OR ABOVE OPTIMAL 130 - 159 mg/dl BORDERLINE HIGH 160 - 189 mg/dl HIGH >190 mg/dl VERY HIGH Performed By: #### U AMIC #### [facility] [address] [address] [address] Manda York Triglyceride [Mass/Vol] 256 mg/dL Critically high <=150 [facility] Comment on above: Performed By: #### U AMIC #### [facility] [address] [address] [address] Manda York VLDL CALC 51.2 mg/dL Normal [facility] Comment on above: Performed By: #### U AMIC #### [facility] [address] [address] [address] Manda York PROF 14(COMP METB)on 022 Albumin [Mass/Vol] 3.8 g/dL Normal 3.4-5.0 [facility] Comment on above: Performed By: #### U AMIC #### [facility] [address] [address] [address] Manda York Albumin/Globulin [Mass ratio] 1.0 {ratio} Normal [facility] Comment on above: Performed By: #### U AMIC #### [facility] [address] [address] [address] Manda York ALP [Catalytic activity/Vol] 66 U/L Normal 46-116 [facility] Comment on above: Performed By: #### U AMIC #### [facility] [address] [address] [address] Manda York ALT [Catalytic activity/Vol] 27 U/L Normal 14-59 [facility] Comment on above: Performed By: #### U AMIC #### [facility] [address] [address] [address] Manda York Anion gap [Moles/Vol] 11.8 mmol/L Normal [facility] Comment on above: Performed By: #### U AMIC #### [facility] [address] [address] [address] Manda York AST [Catalytic activity/Vol] 9 U/L Critically low 15-37 [facility] Comment on above: Performed By: #### U AMIC #### [facility] [address] [address] [address] Manda York Bilirubin [Mass/Vol] 0.2 mg/dL Normal 0.2-1.0 [facility] Comment on above: Performed By: #### U AMIC #### [facility] [address] [address] [address] Manda York Calcium [Mass/Vol] 9.1 mg/dL Normal 8.5-10.1 [facility] Comment on above: Performed By: #### U AMIC #### [facility] [address] [address] [address] Manda York Chloride [Moles/Vol] 101 mmol/L Normal 98-107 [facility] Comment on above: Performed By: #### U AMIC #### [facility] [address] [address] [address] Manda York CO2 [Moles/Vol] 26.1 mmol/L Normal 21.0-32.0 [facility] Comment on above: Performed By: #### U AMIC #### [facility] [address] [place] [address] Dr. Manda York Creatinine [Mass/Vol] 0.80 mg/dL Normal 0.55-1.02 [facility] Comment on above: Performed By: #### U AMIC #### [facility] [address] [address] [address] Manda York EGFR-AF SENEGALESE >60 Normal >=[address] [facility] Comment on above: Performed By: #### U AMIC #### [facility] [address] [place] [address] Dr. Manda York EGFR-NON AF SENEGALESE >60 Normal >=60 [facility] Comment on above: Performed By: #### U AMIC #### [facility] [address] [address] [address] Manda York Globulin (S) [Mass/Vol] 3.8 g/dL Normal [facility] Comment on above: Performed By: #### U AMIC #### [facility] [address] [address] [address] Manda York Glucose [Mass/Vol] 93 mg/dL Normal 74-106 [facility] Comment on above: Performed By: #### U AMIC #### [facility] [address] [place] [address] Dr. Manda York Potassium [Moles/Vol] 3.9 mmol/L Normal 3.5-5.1 [facility] Comment on above: Performed By: #### U AMIC #### [facility] [address] [address] [address] Manda York Protein [Mass/Vol] 7.6 g/dL Normal 6.4-8.2 [facility] Comment on above: Performed By: #### U AMIC #### [facility] [address] [address] [address] Manda York Sodium [Moles/Vol] 135 mmol/L Critically low 136-[address] [facility] Comment on above: Performed By: #### U AMIC #### [facility] [address] [address] [address] Manda York Urea nitrogen [Mass/Vol] 10.0 mg/dL Normal 7.0-18.0 [facility] Comment on above: Performed By: #### U AMIC #### [facility] [address] [address] [address] Manda York Urea nitrogen/Creatinine [Mass ratio] 12.5 mg/mg Normal [facility] Comment on above: Performed By: #### U AMIC #### [facility] [address] [address] [address] Manda York TSHon 03-09-2022 TSH 0.610 uIU/mL Normal 0.358-3.740 [facility] Comment on above: Performed By: #### U AMIC #### [facility] [address] [address] [address] Manda York B2 MICROGLOBULIN Bon 022 Jhhg-0-Vrueyetjfjdog [Mass/Vol] 1.8 ug/mL 0.8 - 2.4 mg/L [facility] FERRITIN BLDon 03-05-2022 Ferritin [Mass/Vol] 33.2 ng/mL 14.7 - 2 05.1 ng/mL [facility] FOLATE SERUMon 03-05-2022 Folate [Mass/Vol] 6.6 ng/mL >4.7 ng/mL [facility] Iron and Iron binding capaci ty panelon 03-05-2022 Iron [Mass/Vol] 49 ug/dL 41 - 186 ug/dL [facility] Iron binding capacity [Mass/Vol] 392 ug/dL High 232 - 386 ug/dL [facility] Iron/TIBC [Molar ratio] 12.5 % Low 15.0 - 57.0 % [facility] CBC W Auto Differential pane l (Bld)on 03-04-2022 Basophils (Bld) [#/Vol] 0.07 10*3/uL <0.11 k/uL [facility] Basophils/100 WBC (Bld) 0.6 % [facility] Differential cell count method Nom (Bld) Auto [facility] Eosinophils (Bld) [#/Vol] 0.19 10*3/uL <0.46 k/uL [facility] Eosinophils/100 WBC (Bld) 1.7 % [facility] Erythrocyte distribution width (RBC) [Ratio] 14.7 % 11.5 - 15.0 % [facility] Hematocrit (Bld) [Volume fraction] 40.0 % 36.0 - 46.0 % [facility] Hemoglobin (Bld) [Mass/Vol] 13.0 g/dL 11.5 - 15.5 g/dL [facility] Immature granulocytes (Bld) [#/Vol] 0.07 10*3/uL <0.10 k/uL [facility] Immature granulocytes/100 WBC (Bld) 0.6 % [facility] Lymphocytes (Bld) [#/Vol] 3.31 10*3/uL 1.00 - 4.00 k/uL [facility] Lymphocytes/100 WBC (Bld) 30.2 % [facility] MCH (RBC) [Entitic mass] 28.9 pg 26.0 - 34.0 pg [facility] MCHC (RBC) [Mass/Vol] 32.5 g/dL 30.5 - 36.0 g/dL [facility] MCV (RBC) [Entitic vol] 88.9 fL 80.0 - 100.0 fL [facility] Monocytes (Bld) [#/Vol] 0.70 10*3/uL <0.87 k/uL [facility] Monocytes/100 WBC (Bld) 6.4 % [facility] Neutrophils (Bld) [#/Vol] 6.63 10*3/uL 1.45 - 7.50 k/uL [facility] Neutrophils/100 WBC (Bld) 60.5 % [facility] Nucleated RBC (Bld) [#/Vol] <0.01 k/uL [facility] Nucleated RBC/100 WBC (Bld) [Ratio] 0.0 /100 WBC [facility] Platelet mean volume (Bld) [Entitic vol] 9.6 fL 9.0 - 12.7 fL [facility] Platelets (Bld) [#/Vol] 355 10*3/uL 150 - 400 k/uL [facility] RBC (Bld) [#/Vol] 4.50 10*6/uL 3.90 - 5.2 0 m/uL [facility] WBC (Bld) [#/Vol] 10.97 10*3/uL 3.70 - 11 .00 k/uL [facility] Calcium.ionized [Moles/Vol]o n 03-04-2022 Calcium.ionized (Bld) [Mass/Vol] 1.26 mmol/L 1.08 - 1.30 mmol/L [facility] Calcium.ionized adjusted to pH 7.4 (Bld) [Moles/Vol] 1.25 mmol/L 1.08 - 1.30 mmol/L [facility] Comprehensive metabolic 2000 panelon 03-04-2022 Albumin [Mass/Vol] 4.3 g/dL 3.9 - 4.9 g/dL [facility] ALP [Catalytic activity/Vol] 70 U/L 34 - 123 U/L [facility] ALT [Catalytic activity/Vol] 26 U/L 7 - 38 U/L [facility] Anion gap [Moles/Vol] 7 mmol/L Low 9 - 18 mmol/L [facility] AST [Catalytic activity/Vol] 12 U/L Low 13 - 35 U/L [facility] Bilirubin [Mass/Vol] 0.2 mg/dL 0.2 - 1 .3 mg/dL [facility] Calcium [Mass/Vol] 9.3 mg/dL 8.5 - 10. 2 mg/dL [facility] Chloride [Moles/Vol] 103 mmol/L 97 - 10 5 mmol/L [facility] CO2 [Moles/Vol] 28 mmol/L 22 - 30 mmol/L [facility] Creatinine [Mass/Vol] 0.69 mg/dL 0.58 - 0.96 mg/dL [facility] Estimated Glomerular Filtration Rate 112 mL/min/1.73m >=60 mL/min/1.73m [facility] Glucose [Mass/Vol] 100 mg/dL High 74 - 99 mg/dL [facility] Potassium [Moles/Vol] 3.9 mmol/L 3.7 - 5.1 mmol/L [facility] Protein [Mass/Vol] 7.0 g/dL 6.3 - 8.0 g/dL [facility] Sodium [Moles/Vol] 138 mmol/L 136 - 144 mmol/L [facility] Urea nitrogen [Mass/Vol] 12 mg/dL 7 - 21 mg/dL [facility] LD LACTATE DEHYDROon 022 LDH [Catalytic activity/Vol] 135 U/L 135 - 214 U/L [facility] PHOSPHORUS INORGANICon 03-04 Phosphate [Mass/Vol] 3.2 mg/dL 2.7 - 4 .8 mg/dL [facility] URIC ACID BLOODon 03-04-2022 Urate [Mass/Vol] 5.2 mg/dL 2.5 - 6.6 mg/dL [facility] IMMUNOGLOBULINS IGA/IGM/IGG/ IGE QUANTITAon 02-20-2022 Immunoglobulin A, Qn, Serum 189 mg/dL Normal 87-352 [facility] Comment on above: Result Comment: Perf ormed at: CB Performed By: #### LUIGI PATRICK #### [facility] [address] [address] [address] Manda York Immunoglobulin E, Total 10 IU/mL Normal 6-495 [facility] Comment on above: Result Comment: Perf ormed at: BN Performed By: #### LUIGI PATRICK #### [facility] [address] [address] [address] Manda York Immunoglobulin G, Qn, Serum 598 mg/dL Normal 586-1602 [facility] Comment on above: Result Comment: Perf ormed at: CB Performed By: #### LUIGI PATRICK #### [facility] [address] [address] [address] Manda York Immunoglobulin M, Qn, Serum 493 mg/dL Critically high 26-217 [facility] Comment on above: Result Comment: Perf ormed at: CB Performed By: #### LUIGI PATRICK #### [facility] [address] [place] [address] Dr. Manda York CHRISTIAN by IFAon 02-19-2022 Antinuclear Antibodies, IFA Negative Normal [facility] Comment on above: Result Comment: Nega tive <1:80 Borderline 1:80 Positive >1:80 ICAP nomenclature: AC-0 For more information about Hep-2 cell patterns use ANApatterns.org, the official website for the International Consensus on Antinuclear Antibody (CHRISTIAN) Patterns (ICAP). Performed By: #### S LUIGI MELO #### [facility] [address] [place] [address] Dr. Manda York THYROID ANTIBODIESon 022 Thyroglobulin Antibody <1.0 Normal 0.0-0.9 [facility] Comment on above: Result Comment: Thyr oglobulin Antibody measured by [employer] Methodology Performed By: #### F T4 #### [facility] [address] [place] [address] Dr. Manda York Thyroid Peroxidase (TPO) Ab <8 Normal 0-34 [facility] Comment on above: Performed By: #### F T4 #### [facility] [address] [address] [address] Manda York PROTEIN ELECTROPHERESISon Albumin [Mass/Vol] 3.2 g/dL Normal 2.9-4.4 [facility] Comment on above: Performed By: #### F T4 #### [facility] [address] [address] [address] Manda York Albumin/Globulin [Mass ratio] 1.0 {ratio} Normal 0.7-1.7 [facility] Comment on above: Performed By: #### F T4 #### [facility] [address] [place] [address] Dr. Manda York Wzugt-1-Jawvsmko 0.2 g/dL Normal 0.0-0.4 [facility] Comment on above: Performed By: #### F T4 #### [facility] [address] [place] [address] Dr. Manda York Rdhsr-2-Mrkmanal 0.9 g/dL Normal 0.4-1.0 [facility] Comment on above: Performed By: #### F T4 #### [facility] [address] [address] [address] Manda York Beta Globulin 1.2 g/dL Normal 0.7-1.3 [facility] Comment on above: Performed By: #### F T4 #### [facility] [address] [address] [address] Manda York Gamma Globulin 0.9 g/dL Normal 0.4-1.[address] [facility] Comment on above: Performed By: #### F T4 #### [facility] [address] [address] [address] Manda York Globulin (S) [Mass/Vol] 3.2 g/dL Normal 2.2-3.9 [facility] Comment on above: Performed By: #### F T4 #### [facility] [address] [place] [address] Dr. Manda York M-Jose De Jesus Not Observed Normal Not Observed [facility] Comment on above: Performed By: #### F T4 #### [facility] [address] [address] [address] Manda York PDF . Normal [facility] Comment on above: Performed By: #### F T4 #### [facility] [address] [place] [address] Dr. Manda York Please note: Comment Normal [facility] Comment on above: Result Comment: Prot ein electrophoresis scan will follow via computer, mail, or cotton tipper delivery. Performed By: #### F T4 #### [facility] [address] [place] [address] Dr. Manda York Protein [Mass/Vol] 6.4 g/dL Normal 6.0-8.5 [facility] Comment on above: Performed By: #### F T4 #### [facility] [address] [address] [address] Manda York SLE PROFILE Aon 02-16-2022 Anti-DNA (DS) Ab Qn 9 IU/mL Normal 0-9 [facility] Comment on above: Result Comment: Nega tive <5 Equivocal 5 - 9 Positive >9 Performed By: #### LUIGI PATRICK #### [facility] [address] [place] [address] Dr. Manda York Antichromatin Antibodies <0.2 Normal 0.0-0.9 [facility] Comment on above: Performed By: #### LUIGI PATRICK #### [facility] [address] [place] [address] Dr. Manda York RA Latex Turbid. <10.0 Normal <14.0 [facility] Comment on above: Performed By: #### LUIGI PATRICK #### [facility] [address] [place] [address] Dr. Manda York [employer] Antibodies <0.2 Normal 0.0-0.[address] [facility] Comment on above: Performed By: #### LUIGI PATRICK #### [facility] [address] [place] [address] Dr. Manda York Sjogryaniv's Anti-SS-A <0.2 Normal 0.0-0.9 [facility] Comment on above: Performed By: #### LUIGI PATRICK #### [facility] [address] [place] [address] Dr. Manda York Sjogryaniv'lucinda Anti-SS-B <0.2 Normal 0.0-0.9 [facility] Comment on above: Performed By: #### LUIGI PATRICK #### [facility] [address] [place] [address] Dr. Manda York Schneider Antibodies <0.2 Normal 0.0-0.9 [facility] Comment on above: Performed By: #### LUIGI PATRICK #### [facility] [address] [place] [address] Dr. Manda York ANTISTREPTOLYSIN O AB (ASO)o n 02-15-2022 Antistreptolysin O Ab 49.6 IU/mL Normal 0.0-200.0 [facility] Comment on above: Performed By: #### A SOAB #### [facility] [address] [place] [address] Dr. Manda York MICROALBUMIN URINEon 022 Albumin, Urine <3.0 Normal Not Estab. [facility] Comment on above: Result Comment: Ve rified by repeat analysis Performed By: #### C BC #### [facility] [address] [place] [address] Dr. Manda York T4, T3U, FTI LABCORPon 02-15 Free Thyroxine Index 2.6 Normal 1.2-4.9 [facility] Comment on above: Performed By: #### LUIGI PATRICK #### [facility] [address] [place] [address] Dr. Manda York T3 Uptake 26 % Normal 24-39 [facility] Comment on above: Performed By: #### LUIGI PATRICK #### [facility] [address] [place] [address] Dr. Manda York T4 [Mass/Vol] 9.9 ug/dL Normal 4.5-12.0 [facility] Comment on above: Performed By: #### LUIGI PATRICK #### [facility] [address] [place] [address] Dr. Manda York CBC AUTO DIFFon 02-14-2022 BASO # 0.1 103/ul Normal 0.0-0.1 [facility] Comment on above: Performed By: #### U AMIC #### [facility] [address] [place] [address] Dr. Manda York Basophils/100 WBC (Bld) 0.6 % Normal 0.2-2.0 [facility] Comment on above: Performed By: #### U AMIC #### [facility] [address] [place] [address] Dr. Manda York EO # 0.3 103/ul Normal 0.0-0.7 [facility] Comment on above: Performed By: #### U AMIC #### [facility] [address] [place] [address] Dr. Manda York Eosinophils/100 WBC (Bld) 3.4 % Normal 0.9-7.0 [facility] Comment on above: Performed By: #### U AMIC #### [facility] [address] [place] [address] Dr. Manda York Erythrocyte distribution width (RBC) [Ratio] 14.6 % Normal 11.0-15.0 [facility] Comment on above: Performed By: #### U AMIC #### [facility] [address] [place] [address] Dr. Manda York Hematocrit (Bld) [Volume fraction] 39.1 % Normal 36.0-48.0 [facility] Comment on above: Performed By: #### U AMIC #### [facility] [address] [place] [address] Dr. Manda York Hemoglobin (Bld) [Mass/Vol] 12.4 g/dL Normal 12.0-16.0 [facility] Comment on above: Performed By: #### U AMIC #### [facility] [address] [place] [address] Dr. Manda York IG # 0.03 10e3/ul Normal 0.00-0.03 [facility] Comment on above: Performed By: #### U AMIC #### [facility] [address] [place] [address] Dr. Manda York IG % 0.3 % Normal 0.0-0.5 [facility] Comment on above: Performed By: #### U AMIC #### [facility] [address] [place] [address] Dr. Manda York LYMPH # 3.6 103/ul Normal 1.2-3.8 [facility] Comment on above: Performed By: #### U AMIC #### [facility] [address] [place] [address] Dr. Manda York Lymphocytes/100 WBC (Bld) 39.9 % Normal 20.5-60.0 [facility] Comment on above: Performed By: #### U AMIC #### [facility] [address] [place] [address] Dr. Manda York MANUAL DIFF REQ NO Normal [facility] Comment on above: Performed By: #### U AMIC #### [facility] [address] [place] [address] Dr. Manda York MCH (RBC) [Entitic mass] 28.4 pg Normal 26.7-34.0 [facility] Comment on above: Performed By: #### U AMIC #### [facility] [address] [place] [address] Dr. Manda York MCHC (RBC) [Mass/Vol] 31.7 g/dL Normal 29.9-35.2 [facility] Comment on above: Performed By: #### U AMIC #### [facility] [address] [place] [address] Dr. Manda York MCV (RBC) [Entitic vol] 89.7 fL Normal 81.0-99.0 [facility] Comment on above: Performed By: #### U AMIC #### [facility] [address] [place] [address] Dr. Manda York MONO # 0.7 103/ul Normal 0.3-0.8 [facility] Comment on above: Performed By: #### U AMIC #### [facility] [address] [place] [address] Dr. Manda York Monocytes/100 WBC (Bld) 7.3 % Normal 1.7-12.0 [facility] Comment on above: Performed By: #### U AMIC #### [facility] [address] [place] [address] Dr. Manda York NEUT # 4.4 103/ul Normal 1.4-6.5 [facility] Comment on above: Performed By: #### U AMIC #### [facility] [address] [place] [address] Dr. Manda York Neutrophils/100 WBC (Bld) 48.5 % Normal 43.0-75.0 [facility] Comment on above: Performed By: #### U AMIC #### [facility] [address] [place] [address] Dr. Manda York Platelet mean volume (Bld) [Entitic vol] 10.1 fL Normal 9.5-13.5 [facility] Comment on above: Performed By: #### U AMIC #### [facility] [address] [place] [address] Dr. Manda York PLT 310 103/ul Normal 150-450 [facility] Comment on above: Performed By: #### U AMIC #### [facility] [address] [place] [address] Dr. Manda York RBC 4.36 106/ul Normal 4.20-5.40 [facility] Comment on above: Performed By: #### U AMIC #### [facility] [address] [place] [address] Dr. Manda oYrk WBC 9.0 103/ul Normal 4.0-11.0 [facility] Comment on above: Performed By: #### U AMIC #### [facility] [address] [place] [address] Dr. Manda York CRPon 02-14-2022 CRP [Mass/Vol] mg/L Normal <=1.[address] [facility] Comment on above: Performed By: #### U AMIC #### [facility] [address] [place] [address] Dr. Manda York CULTURE URINEon 02-14-2022 CULTURE URINE Culture Observations : LIGHT GROWTH OF MIXED GENITAL AMBER. NO POTENTIAL PATHOGENS SEEN. Normal [facility] Comment on above: Performed By: #### C BC #### [facility] [address] [place] [address] Dr. Manda York PROF 14(COMP METB)on 022 Albumin [Mass/Vol] 3.5 g/dL Normal 3.4-5.0 [facility] Comment on above: Performed By: #### U AMIC #### [facility] [address] [place] [address] Dr. Manda York Albumin/Globulin [Mass ratio] 1.0 {ratio} Normal [facility] Comment on above: Performed By: #### U AMIC #### [facility] [address] [address] [address] Manda York ALP [Catalytic activity/Vol] 71 U/L Normal 46-116 [facility] Comment on above: Performed By: #### U AMIC #### [facility] [address] [address] [address] Manda York ALT [Catalytic activity/Vol] 46 U/L Normal 14-59 [facility] Comment on above: Performed By: #### U AMIC #### [facility] [address] [address] [address] Manda York Anion gap [Moles/Vol] 11.6 mmol/L Normal [facility] Comment on above: Performed By: #### U AMIC #### [facility] [address] [place] [address] Dr. Manda York AST [Catalytic activity/Vol] 15 U/L Normal 15-37 [facility] Comment on above: Performed By: #### U AMIC #### [facility] [address] [place] [address] Dr. Manda York Bilirubin [Mass/Vol] 0.2 mg/dL Normal 0.2-1.0 [facility] Comment on above: Performed By: #### U AMIC #### [facility] [address] [place] [address] Dr. Manda York Calcium [Mass/Vol] 8.7 mg/dL Normal 8.5-10.1 [facility] Comment on above: Performed By: #### U AMIC #### [facility] [address] [place] [address] Dr. Manda York Chloride [Moles/Vol] 104 mmol/L Normal 98-107 [facility] Comment on above: Performed By: #### U AMIC #### [facility] [address] [place] [address] Dr. Manda York CO2 [Moles/Vol] 25.1 mmol/L Normal 21.0-32.0 [facility] Comment on above: Performed By: #### U AMIC #### [facility] [address] [place] [address] Dr. Manda York Creatinine [Mass/Vol] 0.80 mg/dL Normal 0.55-1.02 [facility] Comment on above: Performed By: #### U AMIC #### [facility] [address] [address] [address] Manda York EGFR-AF SENEGALESE >60 Normal >=60 [facility] Comment on above: Performed By: #### U AMIC #### [facility] [address] [address] [address] Manda York EGFR-NON AF SENEGALESE >60 Normal >=60 [facility] Comment on above: Performed By: #### U AMIC #### [facility] [address] [address] [address] Manda York Globulin (S) [Mass/Vol] 3.6 g/dL Normal [facility] Comment on above: Performed By: #### U AMIC #### [facility] [address] [address] [address] Manda York Glucose [Mass/Vol] 92 mg/dL Normal 74-106 [facility] Comment on above: Performed By: #### U AMIC #### [facility] [address] [address] [address] Manda York Potassium [Moles/Vol] 3.7 mmol/L Normal 3.5-5.1 [facility] Comment on above: Performed By: #### U AMIC #### [facility] [address] [address] [address] Manda York Protein [Mass/Vol] 7.1 g/dL Normal 6.4-8.2 [facility] Comment on above: Performed By: #### U AMIC #### [facility] [address] [address] [address] Manda York Sodium [Moles/Vol] 137 mmol/L Normal 136-145 [facility] Comment on above: Performed By: #### U AMIC #### [facility] [address] [address] [address] Manda York Urea nitrogen [Mass/Vol] 17.0 mg/dL Normal 7.0-18.0 [facility] Comment on above: Performed By: #### U AMIC #### [facility] [address] [place] [address] Dr. Manda York Urea nitrogen/Creatinine [Mass ratio] 21.2 mg/mg Normal [facility] Comment on above: Performed By: #### U AMIC #### [facility] [address] [place] [address] Dr. Manda York SED RATE WESTERGRENon 2021 SED RATE 40 mm/hr Critically high <=20 [facility] Comment on above: Performed By: #### S EDR #### [facility] [address] [place] [address] Dr. Manda York TSHon 02-14-2022 TSH 1.155 uIU/mL Normal 0.358-3.740 [facility] Comment on above: Performed By: #### U AMIC #### [facility] [address] [place] [address] Dr. Manda York UA RANDOM W/MICROSCOPICon BACTERIA NONE SEEN Normal NONE SEEN [facility] Comment on above: Performed By: #### U AMIC #### [facility] [address] [place] [address] Dr. Manda York Bilirubin Ql (U) Negative Normal NEGATIVE [facility] Comment on above: Performed By: #### U AMIC #### [facility] [address] [place] [address] Dr. Manda York CAST NONE SEEN Normal NONE SEEN [facility] Comment on above: Performed By: #### U AMIC #### [facility] [address] [place] [address] Dr. Manda York Clarity (U) CLEAR Normal CLEAR [facility] Comment on above: Performed By: #### U AMIC #### [facility] [address] [place] [address] Dr. Manda York Color (U) LT. YELLOW Normal YELLOW [facility] Comment on above: Performed By: #### U AMIC #### [facility] [address] [address] [address] Manda York Crystals LM Nom (Urine sed) NONE SEEN Normal NONE SEEN [facility] Comment on above: Performed By: #### U AMIC #### [facility] [address] [address] [address] Manda York Epithelial cells LM Ql (Urine sed) RARE Normal NONE SEEN /RARE [facility] Comment on above: Performed By: #### U AMIC #### [facility] [address] [address] [address] Manda York Glucose Ql (U) Negative Normal NEGATIVE [facility] Comment on above: Performed By: #### U AMIC #### [facility] [address] [place] [address] Dr. Manda York Hemoglobin Ql (U) Negative Normal NEGATIVE [facility] Comment on above: Performed By: #### U AMIC #### [facility] [address] [place] [address] Dr. Manda York Ketones Ql (U) Negative Normal NEGATIVE [facility] Comment on above: Performed By: #### U AMIC #### [facility] [address] [address] [address] Manda York LEUKOCYTES Negative Normal NEGATIVE [facility] Comment on above: Performed By: #### U AMIC #### [facility] [address] [place] [address] Dr. Manda York MUCOUS NONE SEEN Normal NONE SEEN [facility] Comment on above: Performed By: #### U AMIC #### [facility] [address] [place] [address] Dr. Manda York Nitrite Ql (U) Negative Normal NEGATIVE [facility] Comment on above: Performed By: #### U AMIC #### [facility] [address] [place] [address] Dr. Manda York pH (U) 6.0 [pH] Normal 5-9 [facility] Comment on above: Performed By: #### U AMIC #### [facility] [address] [place] [address] Dr. Manda York RBC NONE SEEN Abnormal 0-2 [facility] Comment on above: Performed By: #### U AMIC #### [facility] [address] [address] [address] Manda York SPEC GRAVITY 1.005 Normal 1.005-<=1.025 [facility] Comment on above: Performed By: #### U AMIC #### [facility] [address] [address] [address] Manda York UA PROTEIN Negative Normal NEGATIVE/ TRACE [facility] Comment on above: Performed By: #### U AMIC #### [facility] [address] [address] [address] Manda York Urobilinogen Qn (U) 0.2 {Carmella'U}/dL Normal 0.2 - 1. 0 [facility] Comment on above: Performed By: #### U AMIC #### [facility] [address] [place] [address] Dr. Manda York WBC NONE SEEN Normal NONE SEEN [facility] Comment on above: Performed By: #### U AMIC #### [facility] [address] [place] [address] Dr. Manda York URIC ACID SERUMon 02-14-2022 Urate [Mass/Vol] 4.2 mg/dL Normal 2.6-6.0 [facility] Comment on above: Performed By: #### U AMIC #### [facility] [address] [place] [address] Dr. Manda York VITAMIN D 25 OHon 02-14-2022 VIT D 25-OH 22.4 ng/mL Normal [facility] Comment on above: Performed By: #### F T4 #### [facility] [address] [place] [address] Dr. Manda York VIT D RANGES SEE BELOW Normal [facility] Comment on above: Result Comment: <20 ng/mL Vit D deficient 20 - <30 ng/mL Vit D insufficient 30 - 100 ng/mL Vit D sufficient >100 ng/mL Potential Toxicity Performed By: #### F T4 #### [facility] [address] [place] [address] Dr. Manda York METANEPHRINES [facility]. QNT 24 H R URINEon 11-28-2021 Metanephrine, U,24hr Comment Normal 36-209 [facility] Comment on above: Result Comment: No t otal volume submitted. Unable to calculate 24 hour result. Performed By: #### LEANN PATRICKC #### [facility] [address] [place] [address] Dr. Manda York Metanephrine, Ur 57 ug/L Normal Undefined [facility] Comment on above: Performed By: #### LEANN PATRICKC #### [facility] [address] [place] [address] Dr. Manda York Normetanephr.,U,24h Comment Normal 131-612 [facility] Comment on above: Result Comment: No t otal volume submitted. Unable to calculate 24 hour result. Performed By: #### LEANN PATRICKC #### [facility] [address] [place] [address] Dr. Manda York Normetanephrine, Ur 116 ug/L Normal Undefined [facility] Comment on above: Performed By: #### LEANN PATRICKC #### [facility] [address] [place] [address] Dr. Manda York METANEPHRINES PLASMA FREEon 11-27-2021 Metanephrine, Pl 22.1 pg/mL Normal 0.0-88.0 [facility] Comment on above: Performed By: #### LEANN PATRICKC #### [facility] [address] [place] [address] Dr. Manda York Normetanephrine, Pl 50.7 pg/mL Normal 0.0-218.[address] [facility] Comment on above: Performed By: #### LEANN PATRICKC #### [facility] [address] [place] [address] Dr. Manda York CMV PLASMA PCRon 11-19-2021 CMV Quant DNA PCR (Plasma) Negative Normal Negative [facility] Comment on above: Result Comment: No C MV DNA detected. The quantitative range of this assay is 200 to 1 million IU/mL. Performed By: #### S LORIE [facility] #### [facility] [address] [place] [address] Dr. Manda York log10 CMV Qn DNA Pl UPTCAL Normal [facility] Comment on above: Result Comment: Unab le to calculate result since non-numeric result obtained for component test. Performed By: #### S L[facility]IE [facility] #### [facility] [address] [place] [address] Dr. Manda York CMV AB IGMon 11-18-2021 Cytomegalovirus (CMV) Ab, IgM 43.2 AU/mL Critically high 0.0-29.9 [facility] Comment on above: Result Comment: Nega tive <30.0 Equivocal 30.0 - 34.9 Positive >34.9 A positive result is generally indicative of acute infection, reactivation or persistent IgM production. Performed By: #### S L[facility]IE [facility] #### [facility] [address] [place] [address] Dr. Manda York CMV AB, IGGon 11-18-2021 Cytomegalovirus (CMV) Ab, IgG >10.00 Critically high 0.00-0.59 [facility] Comment on above: Result Comment: Nega tive <0.60 Equivocal 0.60 - 0.69 Positive >0.69 Performed By: #### C MVIGG #### [facility] [address] [place] [address] Dr. Manda York CBC AUTO DIFFon 11-17-2021 BASO # 0.1 103/ul Normal 0.0-0.1 [facility] Comment on above: Performed By: #### C BC #### [facility] [address] [place] [address] Dr. Manda York Basophils/100 WBC (Bld) 0.6 % Normal 0.2-2.0 [facility] Comment on above: Performed By: #### C BC #### [facility] [address] [place] [address] Dr. Manda York EO # 0.2 103/ul Normal 0.0-0.7 [facility] Comment on above: Performed By: #### C BC #### [facility] [address] [place] [address] Dr. Manda York Eosinophils/100 WBC (Bld) 2.3 % Normal 0.9-7.0 [facility] Comment on above: Performed By: #### C BC #### [facility] [address] [place] [address] Dr. Manda York Erythrocyte distribution width (RBC) [Ratio] 14.2 % Normal 11.0-15.0 [facility] Comment on above: Performed By: #### C BC #### [facility] [address] [place] [address] Dr. Manda York Hematocrit (Bld) [Volume fraction] 40.2 % Normal 36.0-48.0 [facility] Comment on above: Performed By: #### C BC #### [facility] [address] [place] [address] Dr. Manda York Hemoglobin (Bld) [Mass/Vol] 12.8 g/dL Normal 12.0-16.0 [facility] Comment on above: Performed By: #### C BC #### [facility] [address] [place] [address] Dr. Manda York IG # 0.02 10e3/ul Normal 0.00-0.03 [facility] Comment on above: Performed By: #### C BC #### [facility] [address] [place] [address] Dr. Manda York IG % 0.2 % Normal 0.0-0.5 [facility] Comment on above: Performed By: #### C BC #### [facility] [address] [place] [address] Dr. Manda York LYMPH # 2.5 103/ul Normal 1.2-3.8 [facility] Comment on above: Performed By: #### C BC #### [facility] [address] [place] [address] Dr. Manda York Lymphocytes/100 WBC (Bld) 24.9 % Normal 20.5-60.0 [facility] Comment on above: Performed By: #### C BC #### [facility] [address] [place] [address] Dr. Manda York MANUAL DIFF REQ NO Normal [facility] Comment on above: Performed By: #### C BC #### [facility] [address] [place] [address] Dr. Manda York MCH (RBC) [Entitic mass] 27.9 pg Normal 26.7-34.0 [facility] Comment on above: Performed By: #### C BC #### [facility] [address] [place] [address] Dr. Manda York MCHC (RBC) [Mass/Vol] 31.8 g/dL Normal 29.9-35.2 [facility] Comment on above: Performed By: #### C BC #### [facility] [address] [place] [address] Dr. Manda York MCV (RBC) [Entitic vol] 87.6 fL Normal 81.0-99.0 [facility] Comment on above: Performed By: #### C BC #### [facility] [address] [place] [address] Dr. Manda York MONO # 0.6 103/ul Normal 0.3-0.8 [facility] Comment on above: Performed By: #### C BC #### [facility] [address] [place] [address] Dr. Manda York Monocytes/100 WBC (Bld) 6.3 % Normal 1.7-12.0 [facility] Comment on above: Performed By: #### C BC #### [facility] [address] [place] [address] Dr. Manda York NEUT # 6.5 103/ul Normal 1.4-6.5 [facility] Comment on above: Performed By: #### C BC #### [facility] [address] [place] [address] Dr. Manda York Neutrophils/100 WBC (Bld) 65.7 % Normal 43.0-75.0 [facility] Comment on above: Performed By: #### C BC #### [facility] [address] [place] [address] Dr. Manda York Platelet mean volume (Bld) [Entitic vol] 10.1 fL Normal 9.5-13.5 [facility] Comment on above: Performed By: #### C BC #### [facility] [address] [place] [address] Dr. Manda York PLT 304 103/ul Normal 150-450 [facility] Comment on above: Performed By: #### C BC #### [facility] [address] [place] [address] Dr. Manda York RBC 4.59 106/ul Normal 4.20-5.40 [facility] Comment on above: Performed By: #### C BC #### [facility] [address] [place] [address] Dr. Manda York WBC 9.9 103/ul Normal 4.0-11.0 [facility] Comment on above: Performed By: #### C BC #### [facility] [address] [place] [address] Dr. Manda York PROF 14(COMP METB)on 022 Albumin [Mass/Vol] 3.7 g/dL Normal 3.4-5.0 [facility] Comment on above: Performed By: #### C BC #### [facility] [address] [place] [address] Dr. Manda York Albumin/Globulin [Mass ratio] 1.0 {ratio} Normal [facility] Comment on above: Performed By: #### C BC #### [facility] [address] [place] [address] Dr. Manda York ALP [Catalytic activity/Vol] 65 U/L Normal 46-116 [facility] Comment on above: Performed By: #### C BC #### [facility] [address] [place] [address] Dr. Manda York ALT [Catalytic activity/Vol] 35 U/L Normal 14-59 [facility] Comment on above: Performed By: #### C BC #### [facility] [address] [place] [address] Dr. Manda York Anion gap [Moles/Vol] 13.0 mmol/L Normal [facility] Comment on above: Performed By: #### C BC #### [facility] [address] [place] [address] Dr. Manda York AST [Catalytic activity/Vol] 12 U/L Critically low 15-37 [facility] Comment on above: Performed By: #### C BC #### [facility] [address] [address] [address] Manda York Bilirubin [Mass/Vol] 0.2 mg/dL Normal 0.2-1.0 [facility] Comment on above: Performed By: #### C BC #### [facility] [address] [place] [address] Dr. Manda York Calcium [Mass/Vol] 8.7 mg/dL Normal 8.5-10.1 [facility] Comment on above: Performed By: #### C BC #### [facility] [address] [place] [address] Dr. Manda York Chloride [Moles/Vol] 104 mmol/L Normal 98-107 [facility] Comment on above: Performed By: #### C BC #### [facility] [address] [place] [address] Dr. Manda York CO2 [Moles/Vol] 24.9 mmol/L Normal 21.0-32.0 [facility] Comment on above: Performed By: #### C BC #### [facility] [address] [place] [address] Dr. Manda York Creatinine [Mass/Vol] 0.77 mg/dL Normal 0.55-1.02 [facility] Comment on above: Performed By: #### C BC #### [facility] [address] [place] [address] Dr. Manda oYrk EGFR-AF SENEGALESE >=60 Normal >=[address] [facility] Comment on above: Performed By: #### C BC #### [facility] [address] [place] [address] Dr. Manda York EGFR-NON AF SENEGALESE >=60 Normal >=60 [facility] Comment on above: Performed By: #### C BC #### [facility] [address] [address] [address] Manda York Globulin (S) [Mass/Vol] 3.8 g/dL Normal [facility] Comment on above: Performed By: #### C BC #### [facility] [address] [address] [address] Manda York Glucose [Mass/Vol] 110 mg/dL Critically high 74-106 [facility] Comment on above: Performed By: #### C BC #### [facility] [address] [address] [address] Manda York Potassium [Moles/Vol] 3.9 mmol/L Normal 3.5-5.1 [facility] Comment on above: Performed By: #### C BC #### [facility] [address] [address] [address] Manda York Protein [Mass/Vol] 7.5 g/dL Normal 6.4-8.2 [facility] Comment on above: Performed By: #### C BC #### [facility] [address] [address] [address] Manda York Sodium [Moles/Vol] 138 mmol/L Normal 136-145 [facility] Comment on above: Performed By: #### C BC #### [facility] [address] [address] [address] Manda York Urea nitrogen [Mass/Vol] 17.0 mg/dL Normal 7.0-18.0 [facility] Comment on above: Performed By: #### C BC #### [facility] [address] [address] [address] Manda York Urea nitrogen/Creatinine [Mass ratio] 22.1 mg/mg Normal [facility] Comment on above: Performed By: #### C BC #### [facility] [address] [address] [address] Manda York SED RATE [facility] 2021 SED RATE 45 mm/hr Critically high <=20 [facility] Comment on above: Performed By: #### F T4 #### [facility] [address] [address] [address] Manda York CHRISTIAN EIA W/REFLEX 5 BIOMARKER Son 10-06-2021 CHRISTIAN Direct Positive Abnormal Negative [facility] Comment on above: Performed By: #### C BC #### [facility] [address] [place] [address] Dr. Manda York Anti-DNA (DS) Ab Qn 10 IU/mL Critically high 0-9 [facility] Comment on above: Result Comment: Nega tive <5 Equivocal 5 - 9 Positive >9 Performed By: #### C BC #### [facility] [address] [place] [address] Dr. Manda York [employer] Antibodies <0.2 Normal 0.0-0.[address] [facility] Comment on above: Performed By: #### C BC #### [facility] [address] [place] [address] Dr. Manda York SEE BELOW: Comment Normal [facility] Comment on above: Result Comment: [...] Sm (anti-Schneider) SLE 15 - 30% --------- FA[employer] MEMBER Mixed Connective Tissue Disease 95% (U1 nRNP, SLE 30 - 50% anti-ribonucleoprotein) Polymyositis and/or Dermatomyositis 20% --------- Scl-70 (antiDNA Scleroderma (diffuse) 20 - 35% topoisomerase) Crest 13% --------- Felicita-1 Polymyositis and/or Dermatomyositis 20 - 40% --------- Centromere B Scleroderma - Crest variant 80% Performed By: #### C BC #### [facility] [address] [place] [address] Dr. Manda York Sjogren'lucinda Anti-SS-A <0.2 Normal 0.0-0.9 [facility] Comment on above: Performed By: #### C BC #### [facility] [address] [place] [address] Dr. Manda York Sjogren'lucinda Anti-SS-B <0.2 Normal 0.0-0.[address] [facility] Comment on above: Performed By: #### C BC #### [facility] [address] [place] [address] Dr. Manda York Schneider Antibodies <0.2 Normal 0.0-0.9 [facility] Comment on above: Performed By: #### C BC #### [facility] [address] [place] [address] Dr. Manda York CMV PLASMA PCRon 10-06-2021 CMV Quant DNA PCR (Plasma) Negative Normal Negative [facility] Comment on above: Result Comment: No C MV DNA detected. The quantitative range of this assay is 200 to 1 million IU/mL. Performed By: #### C MVPL #### [facility] [address] [place] [address] Dr. Manda York log10 CMV Qn DNA Pl UPTCAL Normal [facility] Comment on above: Result Comment: Unab le to calculate result since non-numeric result obtained for component test. Performed By: #### C MVPL #### [facility] [address] [place] [address] Dr. Manda York CMV AB IGMon 2021 Cytomegalovirus (CMV) Ab, IgM 35.5 AU/mL Critically high 0.0-29.9 [facility] Comment on above: Result Comment: Nega tive <30.0 Equivocal 30.0 - 34.9 Positive >34.9 A positive result is generally indicative of acute infection, reactivation or persistent IgM production. Performed By: #### S LUIGI MELO #### [facility] [address] [place] [address] Dr. Manda York CMV AB, IGGon 2021 Cytomegalovirus (CMV) Ab, IgG 6.30 U/mL Critically high 0.00-0.59 [facility] Comment on above: Result Comment: Nega tive <0.60 Equivocal 0.60 - 0.69 Positive >0.69 Performed By: #### S L[facility]IE [facility] #### [facility] [address] [place] [address] Dr. Manda York CBC AUTO DIFFon 10-03-2021 BASO # 0.1 103/ul Normal 0.0-0.1 [facility] Comment on above: Performed By: #### C BC #### [facility] [address] [place] [address] Dr. Manda York Basophils/100 WBC (Bld) 0.7 % Normal 0.2-2.0 [facility] Comment on above: Performed By: #### C BC #### [facility] [address] [place] [address] Dr. Manda York EO # 0.2 103/ul Normal 0.0-0.7 [facility] Comment on above: Performed By: #### C BC #### [facility] [address] [place] [address] Dr. Manda York Eosinophils/100 WBC (Bld) 2.0 % Normal 0.9-7.0 [facility] Comment on above: Performed By: #### C BC #### [facility] [address] [place] [address] Dr. Manda York Erythrocyte distribution width (RBC) [Ratio] 14.4 % Normal 11.0-15.0 [facility] Comment on above: Performed By: #### C BC #### [facility] [address] [place] [address] Dr. Manda York Hematocrit (Bld) [Volume fraction] 37.2 % Normal 36.0-48.0 [facility] Comment on above: Performed By: #### C BC #### [facility] [address] [place] [address] Dr. Manda York Hemoglobin (Bld) [Mass/Vol] 12.3 g/dL Normal 12.0-16.0 [facility] Comment on above: Performed By: #### C BC #### [facility] [address] [place] [address] Dr. Manda York IG # 0.02 10e3/ul Normal 0.00-0.03 [facility] Comment on above: Performed By: #### C BC #### [facility] [address] [place] [address] Dr. Manda York IG % 0.2 % Normal 0.0-0.5 [facility] Comment on above: Performed By: #### C BC #### [facility] [address] [place] [address] Dr. Manda York LYMPH # 2.1 103/ul Normal 1.2-3.8 [facility] Comment on above: Performed By: #### C BC #### [facility] [address] [place] [address] Dr. Manda York Lymphocytes/100 WBC (Bld) 26.4 % Normal 20.5-60.0 [facility] Comment on above: Performed By: #### C BC #### [facility] [address] [place] [address] Dr. Manda York MANUAL DIFF REQ NO Normal [facility] Comment on above: Performed By: #### C BC #### [facility] [address] [place] [address] Dr. Manda York MCH (RBC) [Entitic mass] 29.2 pg Normal 26.7-34.0 [facility] Comment on above: Performed By: #### C BC #### [facility] [address] [place] [address] Dr. Manda York MCHC (RBC) [Mass/Vol] 33.1 g/dL Normal 29.9-35.2 [facility] Comment on above: Performed By: #### C BC #### [facility] [address] [place] [address] Dr. Manda York MCV (RBC) [Entitic vol] 88.4 fL Normal 81.0-99.0 [facility] Comment on above: Performed By: #### C BC #### [facility] [address] [place] [address] Dr. Manda York MONO # 0.5 103/ul Normal 0.3-0.8 [facility] Comment on above: Performed By: #### C BC #### [facility] [address] [place] [address] Dr. Manda York Monocytes/100 WBC (Bld) 6.7 % Normal 1.7-12.0 [facility] Comment on above: Performed By: #### C BC #### [facility] [address] [place] [address] Dr. Manda York NEUT # 5.2 103/ul Normal 1.4-6.5 [facility] Comment on above: Performed By: #### C BC #### [facility] [address] [place] [address] Dr. Manda York Neutrophils/100 WBC (Bld) 64.0 % Normal 43.0-75.0 [facility] Comment on above: Performed By: #### C BC #### [facility] [address] [place] [address] Dr. Manda York Platelet mean volume (Bld) [Entitic vol] 10.5 fL Normal 9.5-13.5 [facility] Comment on above: Performed By: #### C BC #### [facility] [address] [place] [address] Dr. Manda York PLT 265 103/ul Normal 150-450 [facility] Comment on above: Performed By: #### C BC #### [facility] [address] [place] [address] Dr. Manda York RBC 4.21 106/ul Normal 4.20-5.40 [facility] Comment on above: Performed By: #### C BC #### [facility] [address] [place] [address] Dr. Manda York WBC 8.1 103/ul Normal 4.0-11.0 [facility] Comment on above: Performed By: #### C BC #### [facility] [address] [address] [address] Manda York CRPon 10-03-2021 CRP [Mass/Vol] mg/L Normal <=1.[address] [facility] Comment on above: Performed By: #### F T4 #### [facility] [address] [address] [address] Manda York SED RATE NEYERGR[facility] 2021 SED RATE 34 mm/hr Critically high <=20 [facility] Comment on above: Performed By: #### C BC #### [facility] [address] [address] [address] Manda York CHLORIDE (POC)Ordered By: Jae Black on 10-07-2020 Chloride [Moles/Vol] 106 mmol/L 98 - 10 7 mmol/L [facility] Work Phone: Catheterization and angiogra phy procedure details panelOrdered By: Jonas Black on 10-07-2020 Cardiac Diagnostic Report Demographics Patient TERA Torres Date of Study 10/07/2020 Name Date of 1980 Gender Female Age 40 year(s) Race Room [id number]^GINO Height: 67 inch, 170.18 cm Number Corporate [id number] Weight: 234 pounds, 106.1 kg ID # Patient [id number] BSA: 2.16 m^2 BMI: 36.65 kg/m^2 Acct # MR # [id number] Performing Jonas Black Physician Referring # Physician [...] Right coronary angiography. Contrast Material: - Isovue 22855 ml Fluoroscopy Time: Diagnostic: 2:12 minutes. Total: [...] assessed as CCS II according to the Mosotho clinical classification. Hemodynamics Condition: Baseline Room Air [...] + + !Aortic (more content not included)... [facility] Phone: Gwyn Norris Incoming Cardio Results From [facility]/ - 10/07/2020 10:37 AM EDT Cardiac Diagnostic Report Demographics Patient TERA Torres Date of Study 10/07/2020 Name Date of 1980 Gender Female Age 40 year(s) Race Room [id number]^LEYDI^JONAS Height: 67 inch, 170.18 cm Number Corporate [id number] Weight: 234 pounds, 106.1 kg ID # Patient [id number] BSA: 2.16 m^2 BMI: 36.65 kg/m^2 Acct # MR # [id number] Performing Jonas Black Physician Referring # Physician [...] Right coronary angiography. Contrast Material: - Isovue 65801 ml Fluoroscopy Time: Diagnostic: 2:12 minutes. Total: [...] assessed as CCS II according to the Mosotho clinical classification. Hemodynamics Condition: Baseline Room Air [...] +--------- + + Shunts Oxygen Values O2 [id number] [id number] [facility] Phone: [facility] Phone: [facility] Phone: Creatinine W/GFR Point of Ca reOrdered By: Jonas Black on 10-07-2020 Creatinine [Mass/Vol] 0.64 mg/dL 0.51 - 1.19 mg/dL [facility] Phone: GFR Non- >60 >60 mL/min [facility] Phone: GFR/1.73 sq M.predicted MDRD (S/P/Bld) [Vol rate/Area] mL/min/{1.73_m2} >60 mL/min [facility]: GFR/1.73 sq M.predicted MDRD (S/P/Bld) [Vol rate/Area] [facility] Phone: Comment on above: Average GFR for 40-4 9 years old: 99 mL/min/1.73sq m Chronic Kidney Disease: <60 mL/min/1.73sq m Kidney failure: <15 mL/min/1.73sq m eGFR calculated using average adult body mass. Additional eGFR calculator available at: http://www.Cellufun.Wisr/multiple_crcl_2012.htm Hemoglobin and hematocrit, b loodOrdered By: Jonas Black on 10-07-2020 Hematocrit (Bld) [Volume fraction] 41 % 36 - 46 % [facility] Phone: Hemoglobin (Bld) [Mass/Vol] 14.0 g/dL 12.0 - 16.0 g/dL [facility] Phone: No Panel InformationOrdered By: Jonas Black on 10-07-2020 [facility] Phone: POCT GlucoseOrdered By: Anu Black on 10-07-2020 Glucose [Mass/Vol] 98 mg/dL 74 - 100 mg/dL [facility] Phone: POCT urine pregnancyOrdered By: Jonas Black on 10-07-2020 Beta HCG ( test) Ql (U) Negative NEGATIVE [facility] Phone: Comment on above: Specimens with hCG l evels near the threshold of the test (25 mIU/mL) may give a negative or indeterminate result. In such cases, another test should be performed with a new specimen in 48-72 hours. If early is suspected clinically in this setting, correlation with quantitative serum b-hCG level is suggested. [facility] Phone: POTASSIUM (POC)Ordered By: Al Black on 10-07-2020 Potassium [Moles/Vol] 3.8 mmol/L 3.5 - 4.5 mmol/L [facility] Phone: Platelet Counton 10-07-2020 Platelets (Bld) [#/Vol] 299 10*3/uL Normal 138-453 [facility] Comment on above: Performed By: #### P LT #### [facility] [address] [place] [id number] Emergency Department Coordinator: Rick Serrano MD Platelet countOrdered By: Jae Black on 10-07-2020 Platelets (Bld) [#/Vol] 299 10*3/uL [facility] Phone: [facility] Phone: SODIUM (POC)Ordered By: Anu Black on 10-07-2020 Sodium [Moles/Vol] 141 mmol/L 138 - 146 mmol/L [facility] Phone: Coding Summary.on 01-12-2019 Coding Summary. 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 However, the narrative phrase printed from the coding software may appear abbreviated, or result in slightly different terminology. Coded By: Luz Judd Date Saved: 01/12/2019 10:25 am Normal [facility] Coding Summary. CODING DATE: 01/12/2019 [facility] STATUS: Home (Routine DC) PAYOR: Medicaid [...] Revised Date Saved: 01/12/2019 10:25 am Normal [facility] XR Chest 2 Viewson 9 [...] M.D. Transcribed by: BILL Technologist: ZOILA Normal [facility] Auto Diffon 01-11-2019 Basophils/100 WBC (Bld) 0.8 % Normal 0.0-2.0 [facility] Comment on above: Order Comment: Order Added by Discern Expert. Performed By: #### 1 6939438, 1289751, 5043532, 2367575, 90362086, 4342158, 7601496, 4867704, 4031244, 26525281, 5976852 #### [facility] [address] [place] [address] Basophils/Leukocytes Auto (Bld) [Pure # fraction] 0.1 E9/L Normal 0.0-0.2 [facility] Comment on above: Order Comment: Order Added by Discern Expert. Performed By: #### 1 9506881, 3116525, 7734569, 5249606, 93651267, 0868685, 6064663, 5964669, 9114352, 90238869, 8221882 #### [facility] [address] [place] [address] Eosinophils/100 WBC (Bld) 1.9 % Normal 0.0-8.0 [facility] Comment on above: Order Comment: Order Added by Discern Expert. Performed By: #### 1 7772247, 6692701, 2917482, 6575850, 84070151, 6249858, 1855344, 6279278, 3478826, 97113724, 5854171 #### [facility] [address] [place] [address] Eosinophils/Leukocytes Auto (Bld) [Pure # fraction] 0.1 E9/L Normal 0.0-0.5 [facility] Comment on above: Order Comment: Order Added by Discern Expert. Performed By: #### 1 4067452, 9596018, 0993942, 0406590, 20352174, 1249144, 7957829, 0503570, 4256101, 23691752, 1799782 #### [facility] [address] [place] [address] Lymphocytes/100 WBC (Bld) 28.0 % Normal 14.0-50.0 [facility] Comment on above: Order Comment: Order Added by Discern Expert. Performed By: #### 1 2717751, 2097091, 8470762, 1566877, 75805771, 5094630, 0544166, 8320923, 2740495, 27293866, 6278581 #### [facility] [address] [place] [address] Lymphocytes/Leukocytes Auto (Bld) [Pure # fraction] 2.2 E9/L Normal 1.0-4.0 [facility] Comment on above: Order Comment: Order Added by Discern Expert. Performed By: #### 1 3160065, 0963629, 5248123, 0055532, 10892554, 3485681, 3371107, 5033273, 2346346, 99186477, 2897635 #### [facility] [address] [place] [address] Monocytes/100 WBC (Bld) 7.0 % Normal 4.0-14.0 [facility] Comment on above: Order Comment: Order Added by Discern Expert. Performed By: #### 1 9179990, 0067652, 9399137, 4819253, 66839389, 1707409, 8405178, 8204835, 4117274, 51833680, 8243816 #### [facility] [address] [place] [address] Monocytes/Leukocytes Auto (Bld) [Pure # fraction] 0.6 E9/L Normal 0.2-1.0 [facility] Comment on above: Order Comment: Order Added by Discern Expert. Performed By: #### 1 5840484, 6339860, 9183361, 6385133, 03287140, 5241279, 2458831, 3923725, 4655141, 99669593, 5842035 #### [facility] [address] [place] [address] Neutrophils/100 WBC (Bld) 62.3 % Normal 36.0-75.0 [facility] Comment on above: Order Comment: Order Added by Discern Expert. Performed By: #### 1 4138011, 5609560, 6665049, 4010042, 27369616, 5829968, 8098515, 7526663, 5985104, 76367791, 0766294 #### [facility] [address] [place] [address] Neutrophils/Leukocytes Auto (Bld) [Pure # fraction] 4.9 E9/L Normal 2.0-7.5 [facility] Comment on above: Order Comment: Order Added by Discern Expert. Performed By: #### 1 0921115, 9188051, 1137323, 6334741, 38047836, 3882963, 0355411, 9813167, 4488823, 79664361, 7049161 #### [facility] [address] [place] [address] BMPon 01-11-2019 Creatinine [Mass/Vol] 0.7 mg/dL Normal 0.5-1.3 [facility] Comment on above: Performed By: #### 1 2153738, 0471778, 7806769, 6001461, 92740245, 2342667, 4987558, 3709983, 1994226, 15246354, 3839361 #### [facility] [address] [place] [address] Urea nitrogen [Mass/Vol] 11 mg/dL Normal 5-21 [facility] Comment on above: Performed By: #### 1 5518772, 8788647, 8162853, 5433217, 04321499, 4905220, 6604493, 5388693, 8547949, 14196966, 1943562 #### [facility] [address] [place] [address] Urea nitrogen/Creatinine [Mass ratio] 16 No Units Normal 10-20 [facility] Comment on above: Performed By: #### 1 0293677, 8541471, 7685645, 5895343, 87299374, 8700311, 3451732, 5053861, 7035071, 92423685, 5389909 #### [facility] [address] [place] [address] Anion gap [Moles/Vol] 14 mmol/L Normal 6-16 [facility] Comment on above: Performed By: #### 1 7502927, 9607290, 1509522, 2954950, 44897355, 1299729, 4170969, 6550955, 1791467, 50051261, 5768106 #### [facility] [address] [place] [address] Calcium [Mass/Vol] 8.9 mg/dL Normal 8.9-11.1 [facility] Comment on above: Performed By: #### 1 1069482, 3426144, 4022753, 0185457, 98540179, 2669070, 3384599, 6522902, 2345968, 87412013, 0335407 #### [facility] [address] [place] [address] Chloride [Moles/Vol] 107 mmol/L Normal 101-111 [facility] Comment on above: Performed By: #### 1 1441324, 8870928, 9969588, 3666229, 67799174, 5582732, 5205378, 9403799, 9013314, 37183804, 2835993 #### [facility] [address] [place] [address] CO2 [Moles/Vol] 22 mmol/L Normal 21-31 [facility] Comment on above: Performed By: #### 1 8600560, 8253408, 2541156, 6798409, 50174025, 9326802, 6339496, 4849182, 8005136, 05042728, 7772882 #### [facility] [address] [place] [address] Glucose [Mass/Vol] 122 mg/dL Normal 55-199 [facility] Comment on above: Result Comment: If t his glucose result represents a fasting glucose, interpretation should refer to the following reference range: 55-99 mg/dL Performed By: #### 1 2269466, 6902602, 0784539, 5182208, 62250187, 4492501, 0362811, 7514416, 0340398, 94474755, 3175293 #### [facility] [address] [place] [address] Potassium [Moles/Vol] 3.8 mmol/L Normal 3.5-5.3 [facility] Comment on above: Performed By: #### 1 4102073, 7194797, 4386407, 2263248, 00589704, 2890578, 9910146, 2293638, 9981582, 81288353, 9520830 #### [facility] [address] [place] [address] Sodium [Moles/Vol] 139 mmol/L Normal 135-145 [facility] Comment on above: Performed By: #### 1 8404087, 5862188, 7395709, 6192287, 69104096, 0672830, 2127720, 6131257, 3669683, 10167825, 3341211 #### [facility] [address] [place] [address] CBC w/ Auto Diffon 9 Erythrocyte distribution width (RBC) [Ratio] 14.0 % Normal 10.9-14.2 [facility] Comment on above: Performed By: #### 1 9222228, 6248149, 2663247, 9863337, 89429136, 7554451, 9779460, 3691985, 6050691, 41547819, 2067792 #### [facility] [address] [place] [address] Hematocrit (Bld) [Volume fraction] 39.9 % Normal 34.0-46.0 [facility] Comment on above: Performed By: #### 1 5971452, 6727286, 2885850, 7797283, 33322272, 6190711, 4406009, 8743126, 1344129, 86558767, 3009412 #### [facility] [address] [place] [address] Hemoglobin (Bld) [Mass/Vol] 13.5 g/dL Normal 12.0-16.0 [facility] Comment on above: Performed By: #### 1 8697644, 4601213, 4275570, 6747597, 71013105, 8802793, 7363290, 9551408, 5498779, 53533992, 9558295 #### [facility] [address] [place] [address] MCH (RBC) [Entitic mass] 29.4 pg Normal 27.0-34.0 [facility] Comment on above: Performed By: #### 1 2448934, 7908116, 0128092, 1011611, 06989555, 7138822, 3466274, 6998306, 6953838, 49945853, 4841296 #### [facility] [address] [place] [address] MCHC (RBC) [Mass/Vol] 33.7 g/dL Normal 33.3-35.7 [facility] Comment on above: Performed By: #### 1 6950059, 6140261, 0809382, 7706221, 57711487, 8279744, 9405335, 2024511, 8019942, 46668293, 8823492 #### [facility] [address] [place] [address] MCV (RBC) [Entitic vol] 87.4 fL Normal 80.0-100.0 [facility] Comment on above: Performed By: #### 1 9066772, 5840712, 4191987, 1092442, 62836239, 6811917, 8401436, 7198820, 9184128, 40973949, 7762257 #### [facility] [address] [place] [address] Platelet mean volume (Bld) [Entitic vol] 8.5 fL Normal 6.4-10.8 [facility] Comment on above: Performed By: #### 1 5579026, 9717734, 7337281, 8338209, 25796823, 6479771, 2794034, 7105090, 7804997, 53350441, 6372759 #### [facility] [address] [place] [address] Platelets (Bld) [#/Vol] 244.0 E9/L Normal 150.0-500.0 [facility] Comment on above: Performed By: #### 1 9338138, 1955237, 9633770, 5469242, 60650824, 2592338, 8654221, 0032737, 3963870, 23505854, 3442946 #### [facility] [address] [place] [address] RBC (Bld) [#/Vol] 4.6 E12/L Normal 4.3-5.9 [facility] Comment on above: Performed By: #### 1 6166924, 5130078, 5726400, 8551711, 51246489, 3961400, 9047687, 0085082, 8009539, 38966680, 4507690 #### [facility] [address] [place] [address] WBC corrected for nucl RBC Auto (Bld) [#/Vol] 7.9 E9/L Normal 4.0-11.0 [facility] Comment on above: Performed By: #### 1 7731390, 5534644, 7436721, 2545754, 93061218, 9348335, 8970341, 9027047, 6159666, 83400444, 4290475 #### [facility] [address] [place] [address] D-Dimeron 01-11-2019 Fibrin D-dimer FEU (PPP) [Mass/Vol] 265 ng/mL Normal 215-500 [facility] Comment on above: Result Comment: [...] infections Liver cirrhosis Performed By: #### 1 3922792, 9048242, 1974190, 1422947, 80966443, 4700941, 3638951, 5690289, 8743530, 71797543, 9445820 #### [facility] [address] [place] [address] ED Clinical Summaryon 2018 ED Clinical Summary [address] [address] ED Clinical Summary Person Information Name: ARIADNA HALEY [facility] Age: 38 Years : 1980 12:00 AM Sex: Female Language: Burmese PCP: Charles Nicole DO Marital Status: Single Phone: [phone] Visit Id: Visit Reason: Chest pain; CHEST [...] 6:42 PM 01/11/2019 6:42 PM ADDRESS: [address] [place] [address] [place] [id number] PHYS DOC NOTES: MEDICAL INFORMATION: Prescriptions Given: PATIENT EDUCATION INFORMATION: Instructions: Smoking Cessation; Chest Pain (Nonspecific) Follow up: With: Address: When: [address] [place] [address] Business (1) Within 2 to 3 days Comments: Return to ED if symptoms worsen DIAGNOSIS: 1:Chest pain Normal [facility] ED Note-Physicianon 01-12-20 ED Note-Physician Basic [...] prescription medications Follow-up With When Contact Information [facility] Within 2 to [address] [place] [address] [facility] (1) Additional Instructions: Return to [...] Lymph Auto: 28 % (01/11/19 16:46:00 EDT) [place] Auto: 7 % (01/11/19 16:46:00 EDT) Eos Auto: 1.9 % (01/11/19 16:46:00 EDT) Basophil Auto: 0.8 % (01/11/19 16:46:00 EDT) Neutro Absolute: 4.9 E9/L (01/11/19 16:46:00 EDT) Lymph Absolute: 2.2 E9/L (01/11/19 16:46:00 EDT) [place] Absolute: 0.6 E9/L (01/11/19 16:46:00 EDT) Eos [...] Results EC01/11/19: SINUS RHYTHM RATE 84, NORMAL PA AND QRS, NO ST ELEVATION OR DEPRSSION, NORMAL AXIS, NORMAL QTC NORMAL ECG Signed By: Orin Browne DO 01/11/2019 15:54:18 Normal [facility] Comment on above: Result Comment: [...] and skin patches. Some may be available [id number] and others require a prescription. ? Antidepressant [...] Document Reviewed: 08/18/2012 ExitCare? Patient Information ?2014 [employer]. This information is not intended to replace [...] Document Reviewed: 12/13/2008 ExitCare? Patient Information ?2015 [employer]. This information is not intended to replace advice given to you by your health care provider. Make sure you discuss any questions you have with your health care provider. Normal [facility] ED Patient Summaryon 019 ED Patient Summary [place] [id number] Patient Discharge Instructions Person Information Name: ARIADNA HALEY Age: 38 Years Arrival Date: 01/11/2019 3:44 PM Discharge Diagnosis: 1:Chest pain Primary Care Physician: Charles Nicole DO Provider Information Primary Provider: Orin Browne DO Advanced Geomatics Professor:None The exam and treatment you received in the Emergency Department were for an urgent problem and are not intended as complete care. It is important that you follow up with a doctor, nurse practitioner, or physician?s operator assistant i cementing for ongoing care. If your symptoms become worse or you do not improve as expected and you are unable to reach your usual health care provider, you should return to the Emergency Department. We are available 24 hours a day. ARIADNA HALEY has been given the following list of patient education materials, prescriptions and follow-up instructions: Follow-up Instructions: With: Address: When: Charles Nicole [address] [place] [address] Business (1) Within 2 to 3 days [...] opioids can be used to help relieve rhlmufpu-fq-rwhszp pain and are often prescribed following a [...] struggling with addiction, tell your health care mgr and ask for guidance or call [facility]?S National Helpline at 9-551-892-ALDB. b Source: [place] Department of Health and Human Services/Center for Disease Control & Prevention [facility] Medications Given: Medication Dose Route No medications found. Medication Information: Medications to Continue with No Changes Other Medications metformin (metformin 500 mg ER Tab) 250 Milligram By Mouth 2 times a day. Comment: Pharmacy Information: Thank you for choosing [facility] Patient Education Materials: Smoking Cessation Quitting [...] and skin patches. Some may be available [id number] and others require a prescription. ? Antidepressant [...] Document Reviewed: 08/18/2012 ExitCare? Patient Information ?2015 [employer]. This information is not intended to replace [...] Document Reviewed: 12/13/2008 ExitCare? Patient Information ?2014 [employer]. This information is not intended to replace advice given to you by your health care provider. Make sure you discuss any questions you have with your health care provider. TERA Dorantes NICOLE B , have received the following patient education materials/instruction s and have verbalized understanding: Patient Education Materials: Smoking Cessation; Chest Pain (Nonspecific) Follow-up Instructions: With: Address: When: [place] [address] Business (1) Within 2 to 3 days Comments: Return to ED if symptoms worsen Prescriptions: Patient Signature Date Clinician/Nurse Signature Date 01/11/19 18:42:28 Normal [facility] Progress Note-Nurseon 2018 Progress Note-Nurse Pt explained discharge instructions and voiced understanding. Pt sts she will follow up with her PCP and denies any furthe questions at this time. Normal [facility] Troponin 0 Hr.on 01-11-2019 Troponin I.cardiac [Mass/Vol] ng/mL Normal <=0.03 [facility] Comment on above: Result Comment: New Troponin Assay 10/05/13 KR[place] Cutoff value > or = 0.03 ng/mL in conjunction with clinical conditions of myocardial infarction. (www.escardio.org/guidelines) Performed By: #### 1 4732928, 4323808, 8194636, 4260212, 44989617, 3142813, 7503909, 9711831, 6888439, 61036468, 8304797 #### [facility] [address] [place] [address] eGFRon 01-11-2019 GFR/1.73 sq M predicted among blacks MDRD (S/P/Bld) [Vol rate/Area] mL/min/{1.73_m2} Normal >=59 [facility] Comment on above: Order Comment: Order added by Discern Expert. Result Comment: eGFR is race adjusted. AA=. Performed By: #### 1 4596104, 9366544, 6247835, 1033835, 68202990, 1288549, 6333537, 6664228, 3966508, 95763652, 0166496 #### [facility] [address] [place] [address] GFR/1.73 sq M predicted among non-blacks MDRD (S/P/Bld) [Vol rate/Area] mL/min/{1.73_m2} Normal >=59 [facility] Comment on above: Order Comment: Order added by Discern Expert. Result Comment: Product Manager anthony kidney disease could be indicated at eGFR's of less than 60 mL/min/1.73m2. Kidney failure is indicated at less than 15 mL/min/1.73m2. Performed By: #### 1 5960552, 9633401, 4940157, 2539755, 42085781, 5068209, 5183761, 2089524, 8835058, 23634002, 0715598 #### [facility] [address] [place] [address] SPINE, LUMBOSACRAL CMPLT(JAMAR DING)on 12-05-2018 SPINE, LUMBOSACRAL CMPLT(BENDING) Patient Name: ARIADNA HALEY STUDY: SPINE, LUMBOSACRAL; CMPLT(BENDING); 12/05/2018 1:47 pm INDICATION: LUMBAR XR. COMPARISON: None. ACCESSION NUMBER(S): [id number] ORDERING CLINICIAN: KADE RICHARDSON FINDINGS: No lumbar spine fracture. Scattered small endplate osteophytes. Vertebral body and disc space heights are are maintained. 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 No spondylolisthesis. No instability on flexion or extension. IMPRESSION: Degenerative changes of the lumbar spine without instability. Electronically signed by: EARNESTINE MANUEL MD Normal [facility] Coding Summary.on 09-15-2018 Coding Summary. 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 However, the narrative phrase printed from the coding software may appear abbreviated, or result in slightly different terminology. Coded By: Luz Judd Date Saved: 09/15/2018 07:15 am Normal [facility] Auto Diffon 09-14-2018 Basophils/100 WBC (Bld) 0.6 % Normal 0.0-2.0 [facility] Comment on above: Order Comment: Order Added by Discern Expert. Performed By: #### 1 1115276, 3524409, 2096706, 5233288, 52587231, 5753784, 4695364, 7278718, 0598954, 12358857, 7192931 #### [facility] [address] [place] [address] Basophils/Leukocytes Auto (Bld) [Pure # fraction] 0.1 E9/L Normal 0.0-0.2 [facility] Comment on above: Order Comment: Order Added by Discern Expert. Performed By: #### 1 0642671, 3562207, 3565760, 8210922, 46104794, 8331249, 6720371, 8166534, 4546556, 75245320, 3986731 #### [facility] [address] [place] [address] Eosinophils/100 WBC (Bld) 2.2 % Normal 0.0-8.0 [facility] Comment on above: Order Comment: Order Added by Discern Expert. Performed By: #### 1 2807007, 5003306, 2670220, 3292352, 57442573, 3188933, 8622645, 9568092, 3238171, 99632589, 2067525 #### [facility] [address] [place] [address] Eosinophils/Leukocytes Auto (Bld) [Pure # fraction] 0.2 E9/L Normal 0.0-0.5 [facility] Comment on above: Order Comment: Order Added by Discern Expert. Performed By: #### 1 0476052, 8918352, 8018560, 3770985, 60149847, 6974432, 3249327, 0971396, 8255735, 56367820, 8056743 #### [facility] [address] [place] [address] Lymphocytes/100 WBC (Bld) 30.6 % Normal 14.0-50.0 [facility] Comment on above: Order Comment: Order Added by Discern Expert. Performed By: #### 1 6599788, 6684973, 8338142, 4567524, 08946759, 9545302, 2420294, 2410853, 6191097, 76072743, 0587773 #### [facility] [address] [place] [address] Lymphocytes/Leukocytes Auto (Bld) [Pure # fraction] 3.0 E9/L Normal 1.0-4.0 [facility] Comment on above: Order Comment: Order Added by Discern Expert. Performed By: #### 1 8565815, 5220307, 3513341, 5295109, 89811912, 5370281, 8713192, 0425376, 7743041, 01256257, 6649195 #### [facility] [address] [place] [address] Monocytes/100 WBC (Bld) 7.2 % Normal 4.0-14.0 [facility] Comment on above: Order Comment: Order Added by Discern Expert. Performed By: #### 1 0981803, 2561881, 6543618, 2818940, 57096178, 3803193, 0707841, 9690997, 0409889, 60225544, 4096304 #### [facility] [address] [place] [address] Monocytes/Leukocytes Auto (Bld) [Pure # fraction] 0.7 E9/L Normal 0.2-1.0 [facility] Comment on above: Order Comment: Order Added by Tosin Expert. Performed By: #### 1 6594433, 2432566, 0560076, 2252098, 45307342, 3673245, 1577322, 6645175, 7960914, 22247409, 7070478 #### [facility] [address] [place] [address] Neutrophils/100 WBC (Bld) 59.4 % Normal 36.0-75.0 [facility] Comment on above: Order Comment: Order Added by Discern Expert. Performed By: #### 1 3044089, 4570943, 6856631, 4368915, 69420391, 1578197, 5933425, 9987304, 3681676, 61007796, 2314875 #### [facility] [address] [place] [address] Neutrophils/Leukocytes Auto (Bld) [Pure # fraction] 5.9 E9/L Normal 2.0-7.5 [facility] Comment on above: Order Comment: Order Added by Discern Expert. Performed By: #### 1 6635216, 0876591, 0507256, 7956978, 24653477, 9104379, 6772923, 8437959, 3000622, 56400077, 2141552 #### [facility] [address] [place] [address] BMPon 09-14-2018 Creatinine [Mass/Vol] 0.6 mg/dL Normal 0.5-1.3 [facility] Comment on above: Performed By: #### 1 3363924, 1511790, 8260882, 7018092, 27239857, 3410964, 3117969, 8999503, 8900147, 79696399, 8048379 #### [facility] [address] [place] [address] Urea nitrogen [Mass/Vol] 15 mg/dL Normal 5-21 [facility] Comment on above: Performed By: #### 1 7354871, 2593410, 8758313, 1149546, 24397955, 6185882, 8819563, 3621853, 8171034, 50000880, 8864792 #### [facility] [address] [place] [address] Urea nitrogen/Creatinine [Mass ratio] 25 No Units High 10-20 [facility] Comment on above: Performed By: #### 1 9910114, 4269039, 9260468, 8516673, 46252115, 0303784, 9224904, 7271522, 3075070, 84789905, 4614116 #### [facility] [address] [place] [address] Anion gap [Moles/Vol] 13 mmol/L Normal 6-16 [facility] Comment on above: Performed By: #### 1 9516878, 8860013, 2154173, 9925904, 72468593, 6394185, 8371251, 8823301, 8868004, 09591650, 2804241 #### [facility] [address] [place] [address] Calcium [Mass/Vol] 9.5 mg/dL Normal 8.9-11.1 [facility] Comment on above: Performed By: #### 1 7756762, 3759192, 5612590, 1566340, 06579849, 3267427, 3860860, 6231015, 9343031, 88430270, 8354952 #### [facility] [address] [place] [address] Chloride [Moles/Vol] 103 mmol/L Normal 101-111 [facility] Comment on above: Performed By: #### 1 8820966, 2117387, 8344039, 3767493, 32543364, 8796074, 2049095, 9313057, 9537203, 06334100, 1659335 #### [facility] [address] [place] [address] CO2 [Moles/Vol] 24 mmol/L Normal 21-31 [facility] Comment on above: Performed By: #### 1 7942369, 9472074, 4873530, 7134847, 14498679, 4443482, 3130789, 4904502, 1625800, 56232822, 6037412 #### [facility] [address] [place] [address] Glucose [Mass/Vol] 102 mg/dL Normal 55-199 [facility] Comment on above: Result Comment: If t his glucose result represents a fasting glucose, interpretation should refer to the following reference range: 55-99 mg/dL Performed By: #### 1 3895057, 4495708, 5287351, 5127031, 14518053, 1366333, 0323047, 2806390, 0329140, 16943085, 3078993 #### [facility] [address] [place] [address] Potassium [Moles/Vol] 3.6 mmol/L Normal 3.5-5.3 [facility] Comment on above: Performed By: #### 1 4974121, 2119191, 2534969, 3312710, 12216649, 8389040, 9949065, 3000656, 3766626, 10494132, 8837009 #### [facility] [address] [place] [address] Sodium [Moles/Vol] 136 mmol/L Normal 135-145 [facility] Comment on above: Performed By: #### 1 8900927, 2548714, 3282228, 5007337, 02920070, 6633489, 8398300, 6579690, 6174984, 19796564, 3276241 #### [facility] [address] [place] [address] CBC w/ Auto Diffon 9 Erythrocyte distribution width (RBC) [Ratio] 14.2 % Normal 10.9-14.2 [facility] Comment on above: Performed By: #### 1 3846932, 3289004, 8515890, 8355057, 29249692, 7238160, 1561222, 1940609, 9453445, 84844009, 7774525 #### [facility] [address] [place] [address] Hematocrit (Bld) [Volume fraction] 39.4 % Normal 34.0-46.0 [facility] Comment on above: Performed By: #### 1 6337211, 2541394, 6821665, 8614477, 97444217, 8686892, 7688229, 7524848, 2653833, 52678813, 4163303 #### [facility] [address] [place] [address] Hemoglobin (Bld) [Mass/Vol] 13.3 g/dL Normal 12.0-16.0 [facility] Comment on above: Performed By: #### 1 7214023, 0730560, 6821794, 0523386, 95712800, 0137960, 1400972, 1048040, 8966241, 45673456, 2409436 #### [facility] [address] [place] [address] MCH (RBC) [Entitic mass] 29.2 pg Normal 27.0-34.0 [facility] Comment on above: Performed By: #### 1 7913354, 1725143, 9791963, 5743280, 72593797, 3022140, 7658577, 4191782, 9430767, 56511370, 3329301 #### [facility] [address] [place] [address] MCHC (RBC) [Mass/Vol] 33.8 g/dL Normal 33.3-35.7 [facility] Comment on above: Performed By: #### 1 8449123, 1127511, 9817655, 5941209, 55531777, 0086416, 6636166, 2726597, 5368428, 00193366, 8482141 #### [facility] [address] [place] [address] MCV (RBC) [Entitic vol] 86.6 fL Normal 80.0-100.0 [facility] Comment on above: Performed By: #### 1 9301775, 6671693, 3188104, 4973904, 24086378, 1136605, 0019332, 6912574, 6690915, 71867710, 6062400 #### [facility] [address] [place] [address] Platelet mean volume (Bld) [Entitic vol] 8.8 fL Normal 6.4-10.8 [facility] Comment on above: Performed By: #### 1 1874062, 3384298, 5875527, 3432891, 46557471, 7034961, 9702492, 8335873, 9701283, 75170777, 2843269 #### [facility] [address] [place] [address] Platelets (Bld) [#/Vol] 307.0 E9/L Normal 150.0-500.0 [facility] Comment on above: Performed By: #### 1 6671710, 4136556, 1263923, 4644631, 25962511, 1007774, 5036893, 0056779, 1574684, 71869685, 6481736 #### [facility] [address] [place] [address] RBC (Bld) [#/Vol] 4.6 E12/L Normal 4.3-5.9 [facility] Comment on above: Performed By: #### 1 4051585, 5776541, 7538346, 4307131, 05597406, 7190295, 6358822, 9258781, 9632266, 25942084, 4396286 #### [facility] [address] [place] [address] WBC corrected for nucl RBC Auto (Bld) [#/Vol] 9.9 E9/L Normal 4.0-11.0 [facility] Comment on above: Performed By: #### 1 4085930, 8454856, 4909634, 3689504, 97585131, 1691510, 7538698, 8666744, 0918093, 48384197, 2760219 #### [facility] [address] [place] [address] CKon 09-14-2018 CK [Catalytic activity/Vol] 53 Int._Unit/L Normal 14-261 [facility] Comment on above: Performed By: #### 1 8254494, 2606998, 2354747, 4793393, 44076703, 5229919, 6670675, 1448991, 6708285, 97049210, 8693053 #### [facility] [address] [place] [address] ED Clinical Summaryon 2018 ED Clinical Summary [address] [address] ED Clinical Summary Person Information Name: ARIADNA HALEY [place] Age: 37 Years : 1980 12:00 AM Sex: Female Language: Burmese PCP: Charles Nicole DO Marital Status: Single Phone: [phone] Visit Id: Visit Reason: Anxiety; Paraesthesia; NUMBNESS [...] 09/14/2018 12:17 AM 09/14/2018 12:17 AM ADDRESS: [address] [place] [id number] PHYS DOC NOTES: MEDICAL INFORMATION: Prescriptions Given: Prescription Display gabapentin (gabapentin 100 mg Cap) 100 mg = 1 cap(s), Oral, Daily, X 7 day(s), # 7 cap(s), Refills(s) 0, Pharmacy: [facility] gabapentin (gabapentin 100 mg Cap) 100 mg = 1 cap(s), Oral, Daily, X 7 day(s), # 7 cap(s), Refills(s) 0, Pharmacy: [facility]/pharmacy #[id number] magnesium oxide (magnesium oxide 400 mg Tab) 400 mg = 1 tab(s), Oral, Daily, X 7 day(s), # 7 tab(s), Refills(s) 0, Pharmacy: [facility] magnesium oxide (magnesium oxide 400 mg Tab) 400 mg = 1 tab(s), Oral, Daily, X 7 day(s), # 7 tab(s), Refills(s) 0, Pharmacy: [facility]/pharmacy #[id number] Home Meds Display metformin (metformin 500 mg ER Tab) 250 mg, Oral, BID, Refills(s) 0 PATIENT EDUCATION INFORMATION: Instructions: Paresthesia, Iszb-hs-Ajez; Restless Legs Syndrome Follow up: With: Address: When: [facility] [address] [place] [address] Business (1) Within 1 to 2 days Comments: neurologist you may also follow up with him With: Address: When: [address] [address] Business (1) Within 1 to 2 days Comments: Return to ED if symptoms worsen DIAGNOSIS: 1:Restless leg syndrome Normal [facility] ED Note-Nursingon 09-14-2018 ED Note-Nursing Pt up to RR, gait steady. Normal [facility] ED Note-Nursing Aware of need for urine specimen, denies urge at present, states will notify when able to produce sample, will monitor. Normal [facility] ED Note-Physicianon 09-15-19 ED Note-Physician Basic [...] day(s), # 7 cap(s), Refills(s) 0, Pharmacy: [facility]/pharmacy #6177 magnesium oxide, 400 mg = 1 tab(s), Oral, Daily, X 7 day(s), # 7 tab(s), Refills(s) 0, Pharmacy: [facility]/pharmacy #[id number] Sodium Chloride 0.9% intravenous solution 1,000 [...] Sayda Kelley Within 1 to [address] [address]- Business (1) Additional Instructions: neurologist you may also follow up with him Charles Nicole Within 1 to 2 days [address] [place] [address]- Business (1) Additional Instructions: Return to ED if symptoms worsen Patient Education Paresthesia, Kval-kc-Aibv Restless Legs Syndrome Problem List/Past Medical History [...] Lymph Auto: 30.6 % (09/13/18 23:03:00 EDT) Piute Auto: 7.2 % (09/13/18 23:03:00 EDT) Eos Auto: 2.2 % (09/13/18 23:03:00 EDT) Basophil Auto: 0.6 % (09/13/18 23:03:00 EDT) Neutro Absolute: 5.9 E9/L (09/13/18 23:03:00 EDT) Lymph Absolute: 3 E9/L (09/13/18 23:03:00 EDT) Piute Absolute: 0.7 E9/L (09/13/18 23:03:00 EDT) Eos [...] Diagnostic Results No qualifying data available. Normal [facility] Comment on above: Result Comment: [...] Document Reviewed: 01/29/2012 ExitCare? Patient Information ?2015 [employer]. This information is not intended to replace [...] ? Drawing. ? Crawling. ? Worming. ? [place]. ? Tingling. ? Pins and needles. ? [...] Document Reviewed: 08/06/2011 ExitCare? Patient Information ?2015 [employer]. This information is not intended to replace advice given to you by your health care provider. Make sure you discuss any questions you have with your health care provider. Normal [facility] ED Patient Summaryon 019 ED Patient Summary [address] [address] Patient Discharge Instructions Person Information Name: ARIADNA HALEY Age: 37 Years Arrival Date: 09/13/2018 10:16 PM Discharge Diagnosis: 1:Restless leg syndrome Primary Care Physician: Charles Nicole DO Provider Information Primary Provider: Génesis Lozoya DO [employer] Professor:None The exam and treatment you received in the Emergency Department were for an urgent problem and are not intended as complete care. It is important that you follow up with a doctor, nurse practitioner, or physician?s operator assistant i cementing for ongoing care. If your symptoms become worse or you do not improve as expected and you are unable to reach your usual health care provider, you should return to the Emergency Department. We are available 24 hours a day. ARIADNA HALEY has been given the following list of patient education materials, prescriptions and follow-up instructions: Follow-up Instructions: With: Address: When: Sayda Kelley [facility], [address] [place] [address] ActiveO (1) Within 1 to 2 days Comments: neurologist you may also follow up with him With: Address: When: Charles Nicole [address] [place] [address] ActiveO (1) Within 1 to 2 days Comments: Return to ED if symptoms worsen In the event that this physician does not participate in your insurance network, please consult with your insurance company to find a nearby participating provider. Patient Education Materials: Paresthesia, Azjw-fx-Itee; Restless Legs Syndrome A MESSAGE TO ALL PATIENTS REGARDING OPIOIDS PRESCRIPTION OPIOIDS: WHAT YOU NEED TO KNOW Prescription opioids can be used to help relieve molbxnhs-pf-wprwfd pain and are often prescribed following a [...] struggling with addiction, tell your health care mgr and ask for guidance or call [facility] National Helpline at 8-825-541-ASBB. g Source: [place] Department of Health and Human Services/Center for Disease Control & Prevention [facility] Medications Given: Medication Dose Route Sodium Chloride 0.9% intravenous solution 1000.00 mL Initial Volume 1000.00 mL/hr IV Piggyback Left Mid Forearm Medication Information: New Medications [id number], [address] [place], [place] [id number], [phone] gabapentin (gabapentin 100 mg Cap) 1 Capsules By Mouth every day for 7 Days. Refills: 0. magnesium oxide (magnesium oxide 400 mg Tab) 1 Tabs By Mouth every day for 7 Days. Refills: 0. [facility], [address] [place], [place] [id number], [phone] gabapentin (gabapentin 100 mg Cap) 1 Capsules By Mouth every day for 7 Days. Refills: 0. magnesium oxide (magnesium oxide 400 mg Tab) 1 Tabs By Mouth every day for 7 Days. Refills: 0. Medications to Continue with No Changes Other Medications metformin (metformin 500 mg ER Tab) 250 Milligram By Mouth 2 times a day. Comment: Pharmacy Information: Thank you for choosing [facility] Patient Education Materials: Paresthesia Paresthesia is [...] Document Reviewed: 01/29/2012 ExitCare? Patient Information ?2015 [employer]. This information is not intended to replace [...] ? Drawing. ? Crawling. ? [place]orming. ? [place]. ? Tingling. ? Pins and needles. ? [...] Document Reviewed: 08/06/2011 ExitCare? Patient Information ?2015 [employer]. This information is not intended to replace advice given to you by your health care provider. Make sure you discuss any questions you have with your health care provider. TERA Dorantes NICOLE B , have received the following patient education materials/instruction s and have verbalized understanding: Patient Education Materials: Paresthesia, Wuuz-dl-Wtrl; Restless Legs Syndrome Follow-up Instructions: With: Address: When: Sayda Rubin, [address] [place] [address] Business (1) Within 1 to 2 days Comments: neurologist you may also follow up with him With: Address: When: [address] [place] [address] Business (1) Within 1 to 2 days Comments: Return to ED if symptoms worsen Prescriptions: [gabapentin (gabapentin 100 mg Cap)] [gabapentin (gabapentin 100 mg Cap)] [magnesium oxide (magnesium oxide 400 mg Tab)] [magnesium oxide (magnesium oxide 400 mg Tab)] Patient Signature Clinician/Nurse Signature Date 09/14/18 00:21:38 Normal [facility] Hep Func Panelon 09-14-2018 Bilirubin.direct [Mass/Vol] UTC Abnormal 0.1-0.9 [facility] Comment on above: Result Comment: Resu lt verified by Discern Rule. Performed result UTC (Unable to Calculate) was sent as an Alpha code due the inability to calculate a valid numeric value. Performed By: #### 1 3121975, 1818346, 8265688, 0012814, 71550076, 1470855, 5532074, 9850904, 4619882, 92299875, 2972390 #### [facility] [place] [address] Albumin [Mass/Vol] 1.1 g/dL Normal 1.1-2.2 [facility] Comment on above: Performed By: #### 1 0151526, 7122251, 0444594, 6298297, 31229303, 6888173, 4092534, 4206076, 9925328, 57347674, 9529779 #### [facility] [address] [place] [address] Albumin [Mass/Vol] 4.1 g/dL Normal 3.3-5.0 [facility] Comment on above: Performed By: #### 1 5704085, 0904671, 6328589, 0797322, 90839108, 0226694, 9058125, 7742121, 6042455, 85960350, 5579135 #### [facility] [address] [place] [address] ALP [Catalytic activity/Vol] 69 Int._Unit/L Normal 21-98 [facility] Comment on above: Performed By: #### 1 3111614, 1379511, 5365239, 5288738, 23429526, 7650789, 1376662, 4922763, 2898441, 42027596, 1790795 #### [facility] [address] [place], [place] [address] ALT No additional P-5'-P [Catalytic activity/Vol] 27 Int._Unit/L Normal 6-46 [facility] Comment on above: Performed By: #### 1 0658643, 4017113, 4829685, 2488376, 16884405, 7453894, 2723222, 2914317, 9584516, 08470402, 7333193 #### [facility] [address] [place], [place] [address] AST [Catalytic activity/Vol] 16 Int._Unit/L Normal 5-43 [facility] Comment on above: Performed By: #### 1 6677930, 4086480, 0496322, 4783740, 83407493, 0456370, 5448499, 9793343, 6139147, 13526929, 3836108 #### [facility] [address] [place] [address] Bilirubin [Mass/Vol] 0.5 mg/dL Normal 0.0-1.1 [facility] Comment on above: Performed By: #### 1 3003905, 5537924, 6772711, 8864834, 29393871, 3959441, 5476649, 8050124, 0232796, 68367637, 5681267 #### [facility] [address] [place] [address] Bilirubin.direct [Mass/Vol] mg/dL Normal 0.1-0.4 [facility] Comment on above: Performed By: #### 1 1178744, 4146351, 5053464, 1753547, 82930273, 5604429, 9691783, 8303908, 7452116, 65487327, 8844800 #### [facility] [address] [place] [address] Globulin (S) [Mass/Vol] 3.7 g/dL Normal 1.4-4.0 [facility] Comment on above: Performed By: #### 1 4776769, 2301805, 1113888, 0942722, 06250863, 9380459, 0728095, 2898604, 3789017, 78927263, 0643935 #### [facility] [address] [place] [address] Protein [Mass/Vol] 7.8 g/dL Normal 6.0-7.8 [facility] Comment on above: Performed By: #### 1 9169454, 1876472, 6557655, 1801132, 94634965, 1736451, 5165825, 2996335, 3991838, 48708224, 5802344 #### [facility] [address] [place] [address] Magnesiumon 09-14-2018 Magnesium [Mass/Vol] 1.9 mg/dL Normal 1.3-2.4 [facility] Comment on above: Performed By: #### 1 5961789, 2710881, 4612147, 6911799, 10395802, 8752133, 2918385, 2277209, 3176894, 28870646, 7030647 #### [facility] [address] [place] [address] Myoglobinon 09-14-2018 Myoglobin [Mass/Vol] 9 ng/mL Normal <=69 [facility] Comment on above: Performed By: #### 1 9487867, 4624483, 9372012, 7891675, 12782474, 8702863, 3893703, 6191629, 1089622, 79208632, 7407856 #### [facility] [address] [place] [address] PT & PTTon 09-14-2018 aPTT Coag (PPP) [Time] 34.5 second(s) Normal 25.1-36.5 [facility] Comment on above: Result Comment: Hepa rin therapeutic range (represented by Anti-Factor Xa activity of 0.2 - 0.4 U/mL) corresponds to PTT of 56.6 - 109.0 sec. Performed By: #### 1 4418948, 9943935, 0378465, 1136917, 06331960, 1603046, 8315740, 4305156, 5255733, 15780338, 3376146 #### [facility] [address] [place] [address] INR Coag (PPP) [Relative time] 1.0 {INR} [facility] Comment on above: Result Comment: INR results are specifically intended to assess patients stabilized on long-term Anticoagulation therapy suggested INR?s ?Less Intensive Anticoagulation? 2.0 ? 3.0 Conventional Range 3.0 ? 4.5 Performed By: #### 1 3005279, 4009023, 2059854, 5355922, 92691443, 7919855, 4404189, 3453245, 2397799, 02046257, 1074842 #### [facility] [address] [place] [address] PT Coag (PPP) [Time] 11.2 second(s) Normal 10.2-12.9 [facility] Comment on above: Performed By: #### 1 6938183, 8031604, 1633244, 4790489, 93685945, 7983354, 5298021, 8962157, 6271646, 05102913, 6391707 #### [facility] [address] [place] [address] Phosphoruson 09-14-2018 Phosphate [Mass/Vol] 3.8 mg/dL Normal 1.9-4.6 Fish [facility] Comment on above: Performed By: #### 1 9193062, 7485166, 5329505, 6029549, 54877418, 4840855, 3157775, 2990150, 9238417, 25956300, 4447888 #### [facility] [address] [place] [address] Troponin 0 Hr.on 09-14-2018 Troponin I.cardiac [Mass/Vol] ng/mL Normal <=0.03 [facility] Comment on above: Result Comment: New Troponin Assay 10/05/13 [place] Cutoff value > or = 0.03 ng/mL in conjunction with clinical conditions of myocardial infarction. ([email or web address].org/guidelines) Performed By: #### 1 5945605, 4871300, 0610360, 9436684, 71124684, 2816803, 1614624, 0321766, 6597160, 04904216, 8888635 #### [facility] [address] [place] [address] UA With Cult Reflexon 2018 Bacteria LM Ql (Urine sed) TRACE Normal Trace [facility] Comment on above: Performed By: #### 1 3807028, 9429212, 3527133, 5719096, 74843129, 3498574, 7106931, 3580507, 9888899, 64873005, 4387190 #### [facility] [address] [place] [address] Bilirubin Ql (U) Negative Normal Negative [facility] Comment on above: Performed By: #### 1 3389215, 7008563, 2924936, 4257268, 16789714, 2259554, 8398999, 6168147, 6357219, 14569154, 9546068 #### [facility] [address] [place] [address] Clarity (U) CLEAR Normal Clear [facility] Comment on above: Performed By: #### 1 3749754, 4960666, 9424178, 8911888, 81404692, 3365963, 4320911, 8412367, 5471442, 89761720, 3642259 #### [facility] [address] [place] [address] Color (U) YELLOW Normal Yellow [facility] Comment on above: Performed By: #### 1 3968268, 3880074, 5507953, 4522972, 00955522, 5419784, 7726742, 8975889, 0437138, 68785715, 2921417 #### [facility] [address] [place] [address] Epithelial cells.squamous LM.HPF (Urine sed) [#/Area] 0-2 Normal 0-2 [facility] Comment on above: Performed By: #### 1 1204525, 8924187, 2168725, 6653979, 67783577, 3254809, 0721399, 5246607, 5428080, 86555684, 6900931 #### [facility] [address] [place] [address] Glucose Test strip (U) [Mass/Vol] Negative Normal Negative [facility] Comment on above: Performed By: #### 1 5020939, 0729750, 3841166, 1019584, 51133386, 8530114, 0982396, 0552669, 6495574, 35909881, 6313467 #### [facility] [address] [place] [address] Hemoglobin Ql (U) Negative Normal Negative [facility] Comment on above: Performed By: #### 1 8971215, 3805010, 1409683, 5163654, 77015871, 9705877, 5263977, 7422891, 7671052, 05063839, 7407421 #### [facility] [address] [place] [address] Ketones (U) [Mass/Vol] Negative Normal Negative [facility] Comment on above: Performed By: #### 1 1234348, 5450888, 1309959, 9174227, 08195717, 4892030, 0751702, 7316695, 6177798, 84442222, 9451486 #### [facility] [address] [place] [address] [place].plasma/[place] .RBC (Bld) [Mass ratio] 0-3 Normal 0-3 [facility] Comment on above: Performed By: #### 1 2069717, 0802555, 0137936, 3844561, 41169525, 0038279, 0162780, 6649186, 8786248, 33976515, 2219061 #### [facility] [address] [place] [address] Mucus Ql (Urine sed) TRACE Normal [facility] Comment on above: Performed By: #### 1 9449971, 4462465, 6212300, 6681613, 63833974, 9244925, 3068805, 7418568, 0941672, 42138724, 5274448 #### [facility] [address] [place] [address] Nitrite Ql (U) Negative Normal Negative [facility] Comment on above: Performed By: #### 1 3474419, 6869108, 2544596, 6150035, 93226752, 6831523, 1007283, 2617590, 5099810, 67288283, 9021918 #### [facility] [address] [place] [address] pH (U) 6.0 [pH] 5.0-9.0 [facility] Comment on above: Performed By: #### 1 5287855, 6633420, 9756477, 1404219, 40086321, 8909233, 5413362, 3021478, 3880331, 28717472, 6390009 #### [facility] [address] [place] [address] Protein (U) [Mass/Vol] Negative Normal Negative [facility] Comment on above: Performed By: #### 1 5223101, 3923345, 4040020, 4084764, 22431552, 7952691, 8524930, 7689288, 2182220, 66946039, 5246471 #### [facility] [address] [place] [address] Specific gravity (U) [Rel density] 1.010 1.005-1.030 [facility] Comment on above: Performed By: #### 1 0004343, 6032350, 6879140, 6694350, 30778562, 6390149, 8586234, 2247294, 3467139, 23688183, 5428533 #### [facility] [address] [place] [address] UA Spec Desc Clean Catch Normal [facility] Comment on above: Performed By: #### 1 2872288, 4057444, 2435521, 7965669, 66684116, 2762649, 3474852, 6885027, 7812689, 31703185, 0944120 #### [facility] [address] [place] [address] Urobilinogen Qn (U) 0.2 {Carmella'U}/dL Normal 0.0-1.0 [facility] Comment on above: Performed By: #### 1 7677603, 8562225, 2022840, 1318067, 39907006, 8667844, 1014219, 6118199, 7781842, 13325778, 6806977 #### [facility] [address] [place] [address] WBC Auto Ql (U) Negative Normal Negative [facility] Comment on above: Performed By: #### 1 0241250, 5824659, 7861114, 4082849, 41361695, 7630182, 3096453, 5552392, 5615227, 24785480, 9075398 #### [facility] [address] [place] [address] WBC LM.HPF (Urine sed) [#/Area] 0-5 Normal 0-5 [facility] Comment on above: Performed By: #### 1 8883340, 8053491, 7504972, 2695771, 26477229, 4917382, 0282360, 5966234, 7764815, 27814070, 5654187 #### [facility] [address] [place] [address] XR Chest Single Viewon 09-14 XR Chest [...] M.D. Transcribed by: minoo Technologist: AP Normal [facility] XR FOOT LEFT (MIN 3 [...] MDRD (S/P/Bld) [Vol rate/Area] mL/min/{1.73_m2} Normal >=59 [facility] Comment on above: Order Comment: Order added by Discern Expert. Result Comment: eGFR is race adjusted. AA=. Performed By: #### 1 4022342, 1618737, 3713955, 4050976, 81381801, 3489797, 1035121, 0311554, 6898947, 40687792, 0560870 #### [facility] [address] [place] [address] GFR/1.73 sq M predicted among non-blacks MDRD (S/P/Bld) [Vol rate/Area] mL/min/{1.73_m2} Normal >=59 [facility] Comment on above: Order Comment: Order added by Discern Expert. Result Comment: Product Manager anthony kidney disease could be indicated at eGFR's of less than 60 mL/min/1.73m2. Kidney failure is indicated at less than 15 mL/min/1.73m2. Performed By: #### 1 8685155, 3129119, 1097952, 1282846, 94869835, 4586942, 8600749, 1098716, 7891304, 95770648, 9029595 #### [facility] [address] [place] [address] Vital Signs Date Time Vital Sign Value Performing Clinician Facility 02-14-2025 09:42-0400 Body height 170.18 cm Gay Johnmer LAB CLERK-C Work Phone: [facility] 02-14-2025 09:42-0400 Diastolic blood pressure 76 mm[Hg] Gay Britt LAB CLERK-C Work Phone: [facility] 02-14-2025 09:42-0400 Heart rate 65 /min Gay Britt LAB CLERK-C Work Phone: [facility] 02-14-2025 09:42-0400 SaO2% (BldA) [Mass fraction] 97 % Gay Britt LAB CLERK-C Work Phone: [facility] 02-14-2025 09:42-0400 Systolic blood pressure 118 mm[Hg] Gay Britt LAB CLERK-C Work Phone: [facility] 01-31-2025 11:40-0400 Diastolic blood pressure 80 mm[Hg] Gay Britt LAB CLERK-C Work Phone: [facility] 01-31-2025 11:40-0400 Heart rate 86 /min Gay Britt LAB CLERK-C [facility] [facility] 01-31-2025 11:40-0400 Respiratory rate 18 /min Gayomer Johnmer LAB CLERK-C Work Phone: [facility] 01-31-2025 11:40-0400 SaO2% (BldA) [Mass fraction] 94 % Gayomer Johnmer LAB CLERK-C Work Phone: [facility] 01-31-2025 11:40-0400 Systolic blood pressure 116 mm[Hg] Gay Enciso LAB CLERK-C Work Phone: [facility] 01-31-2025 10:11-0400 Body height 170.18 cm Gay Johnmer LAB CLERK-C Work Phone: [facility] 01-31-2025 10:11-0400 Body weight 127 kg Gayomer Johnmer LAB CLERK-C Work Phone: [facility] 01-24-2025 14:20-0400 Diastolic blood pressure 68 mm[Hg] Chair Mcleod Work Phone: [facility] 01-24-2025 14:20-0400 Heart rate 82 /min Chair Gabbi Work Phone: [facility] 01-24-2025 14:20-0400 Respiratory rate 18 /min Chair Gabbi Work Phone: [facility] 01-24-2025 14:20-0400 SaO2% (BldA) [Mass fraction] 98 % Chair Gabbi Work Phone: [facility] 01-24-2025 14:20-0400 Systolic blood pressure 111 mm[Hg] Chair Mcleod Work Phone: [facility] 01-24-2025 10:42-0400 Body temperature 97.81 [degF] Chair Mcleod Work Phone: [facility] 01-17-2025 10:38-0400 Body height 170.18 cm Gay Enciso LAB CLERK-C Work Phone: [facility] 01-17-2025 10:38-0400 Diastolic blood pressure 62 mm[Hg] Gay Johnmer LAB CLERK-C Work Phone: [facility] 01-17-2025 10:38-0400 Heart rate 92 /min Gay Enciso LAB CLERK-C Work Phone: [facility] 01-17-2025 10:38-0400 SaO2% (BldA) [Mass fraction] 96 % Gay Enciso LAB CLERK-C Work Phone: [facility] 01-17-2025 10:38-0400 Systolic blood pressure 108 mm[Hg] Gay Enciso LAB CLERK-C Work Phone: [facility] 01-11-2025 13:51-0400 Body temperature 98.29 [degF] Chair Mcleod Work Phone: [facility] 01-11-2025 13:51-0400 Diastolic blood pressure 91 mm[Hg] Chair Mcleod Work Phone: [facility] 01-11-2025 13:51-0400 Heart rate 76 /min Chair Mcleod Work Phone: [facility] 01-11-2025 13:51-0400 Respiratory rate 20 /min Chair Gabbi Work Phone: [facility] 01-11-2025 13:51-0400 SaO2% (BldA) [Mass fraction] 98 % Chair Gabbi Work Phone: [facility] 01-11-2025 13:51-0400 Systolic blood pressure 146 mm[Hg] Chair Mcleod Work Phone: [facility] 12-14-2024 14:10-0400 Diastolic blood pressure 71 mm[Hg] Chair Mcleod Work Phone: [facility] 12-14-2024 14:10-0400 Heart rate 83 /min Chair Mcleod Work Phone: [facility] 12-14-2024 14:10-0400 Respiratory rate 18 /min Chair Mcleod Work Phone: [facility] 12-14-2024 14:10-0400 SaO2% (BldA) [Mass fraction] 96 % Chair Gabbi Work Phone: [facility] 12-14-2024 14:10-0400 Systolic blood pressure 128 mm[Hg] Chair Gabbi Work Phone: [facility] 12-12-2024 10:45-0400 Body height 170.18 cm Gay Britt LAB CLERK-C Work Phone: [facility] 12-12-2024 10:45-0400 Body mass index (BMI) [Ratio] 44.8 kg/m2 Gay Britt LAB CLERK-C Work Phone: [facility] 12-12-2024 10:45-0400 Body weight 129.72 kg Gay Britt LAB CLERK-C Work Phone: [facility] 12-12-2024 10:45-0400 Diastolic blood pressure 71 mm[Hg] Gay Britt LAB CLERK-C Work Phone: [facility] 12-12-2024 10:45-0400 Heart rate 63 /min Gay Britt LAB CLERK-C Work Phone: [facility] 12-12-2024 10:45-0400 Systolic blood pressure 109 mm[Hg] Gay Britt LAB CLERK-C Work Phone: [facility] 11-30-2024 09:08-0400 Diastolic blood pressure 84 mm[Hg] Gay Britt LAB CLERK-C Work Phone: [facility] 11-30-2024 09:08-0400 Heart rate 64 /min Gay Britt LAB CLERK-C Work Phone: [facility] 11-30-2024 09:08-0400 SaO2% (BldA) [Mass fraction] 98 % Gay Britt LAB CLERK-C Work Phone: [facility] 11-30-2024 09:08-0400 Systolic blood pressure 120 mm[Hg] Gay Britt LAB CLERK-C Work Phone: [facility] 11-29-2024 14:46-0400 Body temperature 97.81 [degF] Chair Reese Work Phone: [facility] 11-29-2024 14:46-0400 Diastolic blood pressure 73 mm[Hg] Chair Mcleod Work Phone: [facility] 11-29-2024 14:46-0400 Heart rate 77 /min Chair Mcleod Work Phone: [facility] 11-29-2024 14:46-0400 Respiratory rate 18 /min Chair Mcleod Work Phone: [facility] 11-29-2024 14:46-0400 SaO2% (BldA) [Mass fraction] 98 % Chair Mcleod Work Phone: [facility] Comment on above: RA 11-29-2024 14:46-0400 Systolic blood pressure 122 mm[Hg] Chair Mcleod Work Phone: [facility] 11-29-2024 09:13-0400 Body height 170.2 cm Vaibhav Deven DIRECTOR OF PRECLINICAL RESEARCH.HOME HEALTH NURSE LICENSED PRACTICAL Work Phone: [facility] 11-29-2024 09:13-0400 Body mass index (BMI) [Ratio] 45.12 kg/m2 Vaibhav Deven DIRECTOR OF PRECLINICAL RESEARCH.HOME HEALTH NURSE LICENSED PRACTICAL Work Phone: [facility] 11-29-2024 09:13-0400 Body temperature 97.5 [degF] Vaibhav Deven DIRECTOR OF PRECLINICAL RESEARCH.HOME HEALTH NURSE LICENSED PRACTICAL Work Phone: [facility] 11-29-2024 09:13-0400 Body weight 130.7 kg Vaibhav Deven DIRECTOR OF PRECLINICAL RESEARCH.HOME HEALTH NURSE LICENSED PRACTICAL Work Phone: [facility] 11-29-2024 09:13-0400 Diastolic blood pressure 57 mm[Hg] Vaibhav Deven DIRECTOR OF PRECLINICAL RESEARCH.HOME HEALTH NURSE LICENSED PRACTICAL Work Phone: [facility] 11-29-2024 09:13-0400 Heart rate 88 /min Vaibhav Deven DIRECTOR OF PRECLINICAL RESEARCH.HOME HEALTH NURSE LICENSED PRACTICAL Work Phone: [facility] 11-29-2024 09:13-0400 Respiratory rate 18 /min Vaibhav Deven DIRECTOR OF PRECLINICAL RESEARCH.HOME HEALTH NURSE LICENSED PRACTICAL Work Phone: [facility] 11-29-2024 09:13-0400 SaO2% (BldA) [Mass fraction] 98 % Vaibhavanil Carvalho DIRECTOR OF PRECLINICAL RESEARCH.HOME HEALTH NURSE LICENSED PRACTICAL Work Phone: [facility] 11-29-2024 09:13-0400 Systolic blood pressure 113 mm[Hg] Vaibhav Carvalho DIRECTOR OF PRECLINICAL RESEARCH.HOME HEALTH NURSE LICENSED PRACTICAL Work Phone: [facility] 11-16-2024 13:47-0400 Body temperature 98.01 [degF] Chair Mcleod Work Phone: [facility] 11-16-2024 13:47-0400 Diastolic blood pressure 70 mm[Hg] Chair Mcleod Work Phone: [facility] 11-16-2024 13:47-0400 Heart rate 89 /min Chair Gabbi Work Phone: [facility] 11-16-2024 13:47-0400 Respiratory rate 20 /min Chair Gabbi Work Phone: [facility] 11-16-2024 13:47-0400 SaO2% (BldA) [Mass fraction] 97 % Chair Mcleod Work Phone: [facility] 11-16-2024 13:47-0400 Systolic blood pressure 101 mm[Hg] Chair Mcleod Work Phone: [facility] 11-13-2024 11:17-0400 Body height 170.18 cm Gay Enciso LAB CLERK-C Work Phone: [facility] 11-13-2024 11:17-0400 Body mass index (BMI) [Ratio] 44.1 kg/m2 Gay Enciso LAB CLERK-C Work Phone: [facility] 11-13-2024 11:17-0400 Body weight 127.91 kg Gay Enciso LAB CLERK-C Work Phone: [facility] 11-13-2024 11:17-0400 Diastolic blood pressure 78 mm[Hg] Gay Enciso LAB CLERK-C Work Phone: [facility] 11-13-2024 11:17-0400 Heart rate 96 /min Gay Johnmer LAB CLERK-C Work Phone: [facility] 11-13-2024 11:17-0400 Systolic blood pressure 104 mm[Hg] Gay Enciso LAB CLERK-C Work Phone: [facility] 10-31-2024 14:46-0400 Diastolic blood pressure 76 mm[Hg] Chair Mcleod Work Phone: [facility] 10-31-2024 14:46-0400 Heart rate 68 /min Chair Mcleod Work Phone: [facility] 10-31-2024 14:46-0400 Respiratory rate 20 /min Chair Mcleod Work Phone: [facility] 10-31-2024 14:46-0400 SaO2% (BldA) [Mass fraction] 94 % Chair Mcleod Work Phone: [facility] Comment on above: RA 10-31-2024 14:46-0400 Systolic blood pressure 133 mm[Hg] Chair Gabbi Work Phone: [facility] 10-31-2024 09:19-0400 Body temperature 97.81 [degF] Chair Mcleod Work Phone: [facility] 2024 14:16-0400 Body mass index (BMI) [Ratio] 44.01 kg/m2 Chair Mcleod Work Phone: [facility] 2024 14:16-0400 Body temperature 97.59 [degF] Chair Mcleod Work Phone: [facility] 2024 14:16-0400 Body weight 127.5 kg Chair Mcleod Work Phone: [facility] 2024 14:16-0400 Diastolic blood pressure 78 mm[Hg] Chair Mcleod Work Phone: [facility] 2024 14:16-0400 Heart rate 85 /min Chair Gabbi Work Phone: [facility] 2024 14:16-0400 Respiratory rate 16 /min Chair Mcleod Work Phone: [facility] 2024 14:16-0400 SaO2% (BldA) [Mass fraction] 96 % Chair Mcleod Work Phone: [facility] 2024 14:16-0400 Systolic blood pressure 113 mm[Hg] Chair Mcleod Work Phone: [facility] 10-02-2024 14:15-0400 Body temperature 98.29 [degF] Chair Mcleod Work Phone: [facility] 10-02-2024 14:15-0400 Diastolic blood pressure 80 mm[Hg] Chair Gabbi Work Phone: [facility] 10-02-2024 14:15-0400 Heart rate 76 /min Chair Mcleod Work Phone: [facility] 10-02-2024 14:15-0400 Respiratory rate 16 /min Chair Mcleod Work Phone: [facility] 10-02-2024 14:15-0400 SaO2% (BldA) [Mass fraction] 97 % Chair Gabbi Work Phone: [facility] 10-02-2024 14:15-0400 Systolic blood pressure 129 mm[Hg] Chair Mcleod Work Phone: [facility] 09-18-2024 13:20-0400 Body temperature 97.59 [degF] Chair Mcleod Work Phone: [facility] 09-18-2024 13:20-0400 Diastolic blood pressure 84 mm[Hg] Chair Mcleod Work Phone: [facility] 09-18-2024 13:20-0400 Heart rate 107 /min Chair Mcleod Work Phone: [facility] 09-18-2024 13:20-0400 Respiratory rate 18 /min Chair Gabbi Work Phone: [facility] 09-18-2024 13:20-0400 SaO2% (BldA) [Mass fraction] 97 % Chair Gabbi Work Phone: [facility] 09-18-2024 13:20-0400 Systolic blood pressure 115 mm[Hg] Chair Mcleod Work Phone: [facility] 09-06-2024 16:17-0400 Heart rate 90 /min Gay Enciso LAB CLERK-C Work Phone: [facility] 09-06-2024 16:17-0400 SaO2% (BldA) [Mass fraction] 97 % Gay Britt LAB CLERK-C Work Phone: [facility] 09-06-2024 13:54-0400 Diastolic blood pressure 69 mm[Hg] Chair Mcleod Work Phone: [facility] 09-06-2024 13:54-0400 Heart rate 90 /min Chair Mcleod Work Phone: [facility] 09-06-2024 13:54-0400 Respiratory rate 18 /min Chair Gabbi Work Phone: [facility] 09-06-2024 13:54-0400 SaO2% (BldA) [Mass fraction] 97 % Chair Mcleod Work Phone: [facility] 09-06-2024 13:54-0400 Systolic blood pressure 110 mm[Hg] Chair Mcleod Work Phone: [facility] 09-06-2024 08:43-0400 Body height 170.2 cm Vaibhav Carvalho APRN.HOME HEALTH NURSE LICENSED PRACTICAL Work Phone: [facility] 09-06-2024 08:43-0400 Body mass index (BMI) [Ratio] 45.5 kg/m2 Vaibhav Carvalho DIRECTOR OF PRECLINICAL RESEARCH.HOME HEALTH NURSE LICENSED PRACTICAL Work Phone: [facility] 09-06-2024 08:43-0400 Body temperature 97.5 [degF] Vaibhav Deven DIRECTOR OF PRECLINICAL RESEARCH.HOME HEALTH NURSE LICENSED PRACTICAL Work Phone: [facility] 09-06-2024 08:43-0400 Body weight 131.8 kg Vaibhav Deven DIRECTOR OF PRECLINICAL RESEARCH.HOME HEALTH NURSE LICENSED PRACTICAL Work Phone: [facility] 09-06-2024 08:43-0400 Diastolic blood pressure 64 mm[Hg] Vaibhav Deven DIRECTOR OF PRECLINICAL RESEARCH.HOME HEALTH NURSE LICENSED PRACTICAL Work Phone: [facility] 09-06-2024 08:43-0400 Heart rate 77 /min Vaibhav Deven DIRECTOR OF PRECLINICAL RESEARCH.HOME HEALTH NURSE LICENSED PRACTICAL Work Phone: [facility] 09-06-2024 08:43-0400 Respiratory rate 18 /min Vaibhav Deven DIRECTOR OF PRECLINICAL RESEARCH.HOME HEALTH NURSE LICENSED PRACTICAL Work Phone: [facility] 09-06-2024 08:43-0400 SaO2% (BldA) [Mass fraction] 97 % Vaibhav Deven DIRECTOR OF PRECLINICAL RESEARCH.HOME HEALTH NURSE LICENSED PRACTICAL Work Phone: [facility] 09-06-2024 08:43-0400 Systolic blood pressure 116 mm[Hg] Vaibhav Deven DIRECTOR OF PRECLINICAL RESEARCH.HOME HEALTH NURSE LICENSED PRACTICAL Work Phone: [facility] 09-04-2024 15:04-0400 Body height 170.2 cm Gordo Barfield MD Work Phone: [facility] 09-04-2024 15:04-0400 Body mass index (BMI) [Ratio] 44.32 kg/m2 Gordo Barfield MD Work Phone: [facility] 09-04-2024 15:04-0400 Body weight 128.37 kg Gordo Barfield MD Work Phone: [facility] 09-04-2024 15:04-0400 Diastolic blood pressure 73 mm[Hg] Gordo Barfield MD Work Phone: [facility] 09-04-2024 15:04-0400 Heart rate 101 /min Gordo Barfield MD Work Phone: [facility] 09-04-2024 15:04-0400 Systolic blood pressure 112 mm[Hg] Gordo Barfield MD Work Phone: [facility] 08-08-2024 14:36-0400 Diastolic blood pressure 87 mm[Hg] Chair Gabbi Work Phone: [facility] 08-08-2024 14:36-0400 Heart rate 83 /min Chair Gabbi Work Phone: [facility] 08-08-2024 14:36-0400 Respiratory rate 18 /min Chair Gabbi Work Phone: [facility] 08-08-2024 14:36-0400 SaO2% (BldA) [Mass fraction] 97 % Chair Mcleod Work Phone: [facility] 08-08-2024 14:36-0400 Systolic blood pressure 129 mm[Hg] Chair Mcleod Work Phone: [facility] 08-08-2024 10:54-0400 Body temperature 98.01 [degF] Chair Gabbi Work Phone: [facility] 07-31-2024 16:05-0400 Diastolic blood pressure 70 mm[Hg] Gayomer Enciso LAB CLERK-C Work Phone: [facility] 07-31-2024 16:05-0400 Heart rate 108 /min Gayomer Enciso LAB CLERK-C Work Phone: [facility] 07-31-2024 16:05-0400 SaO2% (BldA) [Mass fraction] 96 % Gayomer Enciso LAB CLERK-C Work Phone: [facility] 07-31-2024 16:05-0400 Systolic blood pressure 104 mm[Hg] Gay Enciso LAB CLERK-C Work Phone: [facility] 07-26-2024 15:06-0500 Body height 170.2 cm Lois Holm MD Work Phone: [facility] 07-26-2024 15:06-0500 Body mass index (BMI) [Ratio] 44.92 kg/m2 Lois Holm MD Work Phone: [facility] 07-26-2024 15:06-0500 Body weight 130.09 kg Lois Holm MD Work Phone: [facility] 07-26-2024 15:06-0500 Diastolic blood pressure 60 mm[Hg] Lois Holm MD Work Phone: [facility] 07-26-2024 15:06-0500 Heart rate 84 /min Lois Holm MD Work Phone: [facility] 07-26-2024 15:06-0500 Systolic blood pressure 100 mm[Hg] Lois Holm MD Work Phone: [facility] 07-19-2024 11:27-0500 Diastolic blood pressure 90 mm[Hg] Gay Enciso LAB CLERK-C Work Phone: [facility] 07-19-2024 11:27-0500 Heart rate 78 /min Gay Enciso LAB CLERK-C Work Phone: [facility] 07-19-2024 11:27-0500 Respiratory rate 16 /min Gay Enciso LAB CLERK-C Work Phone: [facility] 07-19-2024 11:27-0500 SaO2% (BldA) [Mass fraction] 96 % Gay Enciso LAB CLERK-C Work Phone: [facility] 07-19-2024 11:27-0500 Systolic blood pressure 126 mm[Hg] Gay Enciso LAB CLERK-C Work Phone: [facility] 07-19-2024 09:54-0500 Body height 170.18 cm Gay Enciso LAB CLERK-C Work Phone: [facility] 07-19-2024 09:54-0500 Body weight 127 kg Gay Enciso LAB CLERK-C Work Phone: [facility] 07-12-2024 14:16-0500 Body temperature 96.91 [degF] Marky Barnes PA-C Work Phone: [facility] 07-11-2024 14:30-0500 Body temperature 97.39 [degF] Chair Mcleod Work Phone: [facility] 07-11-2024 14:30-0500 Diastolic blood pressure 80 mm[Hg] Chair Mcleod Work Phone: [facility] 07-11-2024 14:30-0500 Heart rate 69 /min Chair Mcleod Work Phone: [facility] 07-11-2024 14:30-0500 Respiratory rate 18 /min Chair Gabbi Work Phone: [facility] 07-11-2024 14:30-0500 SaO2% (BldA) [Mass fraction] 98 % Chair Mcleod Work Phone: [facility] 07-11-2024 14:30-0500 Systolic blood pressure 119 mm[Hg] Chair Mcleod Work Phone: [facility] 07-10-2024 15:25-0500 Diastolic blood pressure 70 mm[Hg] [facility] 07-10-2024 15:25-0500 Heart rate 106 /min [facility] 07-10-2024 15:25-0500 SaO2% (BldA) [Mass fraction] 97 % [facility] 07-10-2024 15:25-0500 Systolic blood pressure 102 mm[Hg] [facility] 06-13-2024 14:55-0500 Diastolic blood pressure 56 mm[Hg] Chair Mcleod Work Phone: [facility] 06-13-2024 14:55-0500 Heart rate 70 /min Chair Gabbi Work Phone: [facility] 06-13-2024 14:55-0500 Respiratory rate 18 /min Chair Gabbi Work Phone: [facility] 06-13-2024 14:55-0500 SaO2% (BldA) [Mass fraction] 98 % Chair Mcleod Work Phone: [facility] 06-13-2024 14:55-0500 Systolic blood pressure 93 mm[Hg] Chair Gabbi Work Phone: [facility] 06-13-2024 08:55-0500 Body mass index (BMI) [Ratio] 45.08 kg/m2 Vaibhav Deven DIRECTOR OF PRECLINICAL RESEARCH.HOME HEALTH NURSE LICENSED PRACTICAL Work Phone: [facility] 06-13-2024 08:55-0500 Body temperature 97.59 [degF] Vaibhav Deven DIRECTOR OF PRECLINICAL RESEARCH.HOME HEALTH NURSE LICENSED PRACTICAL Work Phone: [facility] 06-13-2024 08:55-0500 Body weight 130.6 kg Vaibhav Deven DIRECTOR OF PRECLINICAL RESEARCH.HOME HEALTH NURSE LICENSED PRACTICAL Work Phone: [facility] 06-13-2024 08:55-0500 Diastolic blood pressure 71 mm[Hg] Vaibhav Deven DIRECTOR OF PRECLINICAL RESEARCH.HOME HEALTH NURSE LICENSED PRACTICAL Work Phone: [facility] 06-13-2024 08:55-0500 Heart rate 79 /min Vaibhav Deven DIRECTOR OF PRECLINICAL RESEARCH.HOME HEALTH NURSE LICENSED PRACTICAL Work Phone: [facility] 06-13-2024 08:55-0500 Respiratory rate 16 /min Vaibhav Deven DIRECTOR OF PRECLINICAL RESEARCH.HOME HEALTH NURSE LICENSED PRACTICAL Work Phone: [facility] 06-13-2024 08:55-0500 SaO2% (BldA) [Mass fraction] 98 % Vaibhav Deven DIRECTOR OF PRECLINICAL RESEARCH.HOME HEALTH NURSE LICENSED PRACTICAL Work Phone: [facility] 06-13-2024 08:55-0500 Systolic blood pressure 106 mm[Hg] Vaibhav Deven DIRECTOR OF PRECLINICAL RESEARCH.HOME HEALTH NURSE LICENSED PRACTICAL Work Phone: [facility] 06-06-2024 11:37-0500 Body mass index (BMI) [Ratio] 45.08 kg/m2 Oly WARREN Work Phone: [facility] 06-06-2024 11:37-0500 Body weight 130.54 kg Oly WARREN Work Phone: [facility] 06-06-2024 11:37-0500 Diastolic blood pressure 70 mm[Hg] Oly WARREN Work Phone: [facility] 06-06-2024 11:37-0500 Systolic blood pressure 120 mm[Hg] Oly WARREN Work Phone: [facility] 05-19-2024 15:02-0500 Body temperature 97.3 [degF] Chair Mcleod Work Phone: [facility] 05-19-2024 15:02-0500 Diastolic blood pressure 63 mm[Hg] Chair Mcleod Work Phone: [facility] 05-19-2024 15:02-0500 Heart rate 73 /min Chair Mcleod Work Phone: [facility] 05-19-2024 15:02-0500 Respiratory rate 20 /min Chair Gabbi Work Phone: [facility] 05-19-2024 15:02-0500 SaO2% (BldA) [Mass fraction] 98 % Chair Mcleod Work Phone: [facility] Comment on above: 05-19-2024 15:02-0500 Systolic blood pressure 114 mm[Hg] Chair Gabbi Work Phone: [facility] 04-26-2024 09:31-0500 Body temperature 97.59 [degF] Ma Sand Work Phone: [facility] 04-26-2024 09:31-0500 Diastolic blood pressure 78 mm[Hg] Ma Sand Work Phone: [facility] Comment on above: Manual 04-26-2024 09:31-0500 Heart rate 66 /min Ma Sand Work Phone: [facility] 04-26-2024 09:31-0500 Respiratory rate 16 /min Ma Sand Work Phone: [facility] 04-26-2024 09:31-0500 SaO2% (BldA) [Mass fraction] 99 % Ma Sand Work Phone: [facility] 04-26-2024 09:31-0500 Systolic blood pressure 122 mm[Hg] Cele Marshall Work Phone: [facility] Comment on above: Manual 04-10-2024 10:12-0500 Body height 170.2 cm Gordo Barfield MD Work Phone: [facility] 04-10-2024 10:12-0500 Body mass index (BMI) [Ratio] 44.95 kg/m2 Gordo Barfield MD Work Phone: [facility] 04-10-2024 10:12-0500 Body weight 130.18 kg Gordo Barfield MD Work Phone: [facility] 04-10-2024 10:12-0500 Diastolic blood pressure 70 mm[Hg] Gordo Barfield MD Work Phone: [facility] 04-10-2024 10:12-0500 Systolic blood pressure 110 mm[Hg] Gordo Barfield MD Work Phone: [facility] 04-06-2024 10:00-0500 Body height 170.2 cm Hayden Arciniega MD Work Phone: [facility] 04-06-2024 10:00-0500 Body mass index (BMI) [Ratio] 43.07 kg/m2 Hayden Arciniega MD Work Phone: [facility] 04-06-2024 10:00-0500 Body temperature 97 [degF] Hayden Arciniega MD Work Phone: [facility] 04-06-2024 10:00-0500 Body weight 124.74 kg Hayden Arciniega MD Work Phone: [facility] 04-06-2024 10:00-0500 Diastolic blood pressure 80 mm[Hg] Hayden Arciniega MD Work Phone: [facility] 04-06-2024 10:00-0500 Heart rate 86 /min Hayden Arciniega MD Work Phone: [facility] 04-06-2024 10:00-0500 SaO2% (BldA) [Mass fraction] 97 % Hayden Arciniega MD Work Phone: [facility] 04-06-2024 10:00-0500 Systolic blood pressure 136 mm[Hg] Hayden Arciniega MD Work Phone: [facility] 04-02-2024 13:27-0500 Body mass index (BMI) [Ratio] 45.42 kg/m2 Marky Mike DO Work Phone: [facility] 04-02-2024 13:27-0500 Body temperature 98.71 [degF] Marky Mike DO Work Phone: [facility] 04-02-2024 13:27-0500 Body weight 131.54 kg Marky Mike DO Work Phone: [facility] 04-02-2024 13:27-0500 Diastolic blood pressure 90 mm[Hg] Marky Mike DO Work Phone: [facility] 04-02-2024 13:27-0500 Heart rate 78 /min Marky Mike DO Work Phone: [facility] 04-02-2024 13:27-0500 SaO2% (BldA) [Mass fraction] 99 % Marky Mike DO Work Phone: [facility] 04-02-2024 13:27-0500 Systolic blood pressure 132 mm[Hg] Marky Mike DO Work Phone: [facility] 03-23-2024 14:35-0400 Body mass index (BMI) [Ratio] 44.17 kg/m2 Oly WARREN Work Phone: [facility] 03-23-2024 14:35-0400 Body weight 127.91 kg Oly WARREN Work Phone: [facility] 03-23-2024 14:35-0400 Diastolic blood pressure 76 mm[Hg] Oly WARREN Work Phone: [facility] 03-23-2024 14:35-0400 Systolic blood pressure 122 mm[Hg] Oly WARREN Work Phone: [facility] 03-23-2024 10:11-0400 Body height 170.2 cm Ma Sand Work Phone: [facility] 03-23-2024 10:11-0400 Body mass index (BMI) [Ratio] 43.06 kg/m2 Ma Sand Work Phone: [facility] 03-23-2024 10:11-0400 Body temperature 97.59 [degF] Cele Sand Work Phone: [facility] 03-23-2024 10:11-0400 Body weight 124.74 kg Ma Sand Work Phone: [facility] 03-23-2024 10:11-0400 Diastolic blood pressure 85 mm[Hg] Ma Sand Work Phone: [facility] 03-23-2024 10:11-0400 Heart rate 71 /min Ma Sand Work Phone: [facility] 03-23-2024 10:11-0400 Respiratory rate 16 /min Cele Sand Work Phone: [facility] 03-23-2024 10:11-0400 SaO2% (BldA) [Mass fraction] 94 % Ma GoSave Work Phone: [facility] 03-23-2024 10:11-0400 Systolic blood pressure 135 mm[Hg] Ma GoSave Work Phone: [facility] 03-16-2024 11:24-0400 Body mass index (BMI) [Ratio] 43.67 kg/m2 Luan Skip DO Work Phone: [facility] [employer] 03-16-2024 11:24-0400 Body weight 126.46 kg Luan Skip DO Work Phone: [facility] [employer] 03-16-2024 11:24-0400 Diastolic blood pressure 70 mm[Hg] Luan Skip DO Work Phone: [facility] [employer] 03-16-2024 11:24-0400 Systolic blood pressure 120 mm[Hg] Luan Skip DO Work Phone: [facility] [employer] 03-16-2024 09:20-0400 Body height 170.18 cm LAB CLERK-C Gay Johnmer Work Phone: [facility] 03-16-2024 09:20-0400 Body mass index (BMI) [Ratio] 43 kg/m2 LAB CLERK-C Gayomer Johnmer Work Phone: [facility] 03-16-2024 09:20-0400 Body weight 124.73 kg LAB CLERK-C Gayomer Johnmer Work Phone: [facility] 02-21-2024 11:04-0400 Body temperature 97.2 [degF] Ma Sand Work Phone: [facility] 02-21-2024 11:04-0400 Diastolic blood pressure 68 mm[Hg] Ma Sand Work Phone: [facility] Comment on above: manual 02-21-2024 11:04-0400 Heart rate 95 /min Ma Sand Work Phone: [facility] 02-21-2024 11:04-0400 Respiratory rate 16 /min Ma Sand Work Phone: [facility] 02-21-2024 11:04-0400 SaO2% (BldA) [Mass fraction] 98 % Ma Sand Work Phone: [facility] 02-21-2024 11:04-0400 Systolic blood pressure 102 mm[Hg] Ma Sand Work Phone: [facility] Comment on above: manual 02-16-2024 09:23-0400 Diastolic blood pressure 72 mm[Hg] LAB CLERK-C Gay Johnmer Work Phone: [facility] 02-16-2024 09:23-0400 Heart rate 70 /min LAB CLERK-C Gay Britt Work Phone: [facility] 02-16-2024 09:23-0400 Respiratory rate 16 /min LAB CLERK-C Gay Britt Work Phone: [facility] 02-16-2024 09:23-0400 SaO2% (BldA) [Mass fraction] 96 % LAB CLERK-C Gay Britt Work Phone: [facility] 02-16-2024 09:23-0400 Systolic blood pressure 126 mm[Hg] LAB CLERK-C Gay Enciso Work Phone: [facility] 02-16-2024 07:27-0400 Body height 170.18 cm LAB CLERK-C Gay Enciso Work Phone: [facility] 02-16-2024 07:27-0400 Body weight 122.46 kg LAB CLERK-C Gay Enciso Work Phone: [facility] 01-28-2024 11:31-0400 Body weight 126.6 kg [facility] 01-28-2024 11:31-0400 Diastolic blood pressure 80 mm[Hg] [facility] 01-28-2024 11:31-0400 Heart rate 69 /min [facility] 01-28-2024 11:31-0400 SaO2% (BldA) [Mass fraction] 98 % [facility] 01-28-2024 11:31-0400 Systolic blood pressure 120 mm[Hg] [facility] 01-25-2024 11:30-0400 Body temperature 97.39 [degF] Ma Sand Work Phone: [facility] 01-25-2024 11:30-0400 Diastolic blood pressure 67 mm[Hg] Ma Sand Work Phone: [facility] 01-25-2024 11:30-0400 Heart rate 68 /min Ma Sand Work Phone: [facility] 01-25-2024 11:30-0400 Respiratory rate 16 /min Ma Sand Work Phone: [facility] 01-25-2024 11:30-0400 SaO2% (BldA) [Mass fraction] 99 % Ma Sand Work Phone: [facility] 01-25-2024 11:30-0400 Systolic blood pressure 92 mm[Hg] Ma Sand Work Phone: [facility] 12-27-2023 11:16-0400 Diastolic blood pressure 68 mm[Hg] Neda Liz PA-C Work Phone: [facility] 12-27-2023 11:16-0400 Systolic blood pressure 98 mm[Hg] Neda Liz PA-C Work Phone: [facility] 12-27-2023 11:02-0400 Body height 170.2 cm Neda Liz PA-C Work Phone: [facility] 12-27-2023 11:02-0400 Body mass index (BMI) [Ratio] 43.08 kg/m2 Neda Liz PA-C Work Phone: [facility] 12-27-2023 11:02-0400 Body temperature 97.7 [degF] Neda Liz PA-C Work Phone: [facility] 12-27-2023 11:02-0400 Body weight 124.8 kg Neda Liz PA-C Work Phone: [facility] 12-27-2023 11:02-0400 Heart rate 89 /min Neda Liz PA-C Work Phone: [facility] 12-27-2023 11:02-0400 Respiratory rate 16 /min Neda Liz PA-C Work Phone: [facility] 12-27-2023 11:02-0400 SaO2% (BldA) [Mass fraction] 98 % Neda Liz PA-C Work Phone: [facility] 12-16-2023 14:130400 Body height 170.18 cm [facility] 12-16-2023 14:130400 Body mass index (BMI) [Ratio] 42.7 kg/m2 [facility] 12-16-2023 14:13-0400 Body temperature 98.6 [degF] [facility] 12-16-2023 14:130400 Body weight 123.83 kg [facility] 12-16-2023 14:13-0400 Diastolic blood pressure 73 mm[Hg] [facility] 12-16-2023 14:13-0400 Heart rate 75 /min [facility] 12-16-2023 14:13-0400 Systolic blood pressure 106 mm[Hg] [facility] 11-29-2023 13:43-0400 Body temperature 97.59 [degF] Ma Sand Work Phone: [facility] 11-29-2023 13:43-0400 Diastolic blood pressure 51 mm[Hg] Ma Sand Work Phone: [facility] 11-29-2023 13:43-0400 Heart rate 73 /min Ma Sand Work Phone: [facility] 11-29-2023 13:43-0400 Respiratory rate 16 /min Ma Sand Work Phone: [facility] 11-29-2023 13:43-0400 SaO2% (BldA) [Mass fraction] 96 % Ma Sand Work Phone: [facility] 11-29-2023 13:43-0400 Systolic blood pressure 83 mm[Hg] Ma Sand Work Phone: [facility] 11-04-2023 13:55-0400 Body height 170.18 cm [facility] 11-04-2023 13:55-0400 Body temperature 97.3 [degF] [facility] 11-04-2023 13:55-0400 Diastolic blood pressure 54 mm[Hg] [facility] 11-04-2023 13:55-0400 Heart rate 62 /min [facility] 11-04-2023 13:55-0400 Systolic blood pressure 104 mm[Hg] [facility] 10-27-2023 14:44-0400 Body temperature 97 [degF] Ma Sand Work Phone: [facility] 10-27-2023 14:44-0400 Diastolic blood pressure 72 mm[Hg] Ma Sand Work Phone: [facility] 10-27-2023 14:44-0400 Heart rate 97 /min Ma Sand Work Phone: [facility] 10-27-2023 14:44-0400 Respiratory rate 18 /min Ma Sand Work Phone: [facility] 10-27-2023 14:44-0400 SaO2% (BldA) [Mass fraction] 97 % Ma Sand Work Phone: [facility] 10-27-2023 14:44-0400 Systolic blood pressure 110 mm[Hg] Ma Sand Work Phone: [facility] 10-20-2023 13:10-0400 Body height 170.18 cm [facility] 10-20-2023 13:10-0400 Body mass index (BMI) [Ratio] 43.2 kg/m2 [facility] 10-20-2023 13:10-0400 Body temperature 97.3 [degF] [facility] 10-20-2023 13:10-0400 Body weight 125.19 kg [facility] 10-20-2023 13:10-0400 Diastolic blood pressure 54 mm[Hg] [facility] 10-20-2023 13:10-0400 Heart rate 74 /min [facility] 10-20-2023 13:10-0400 Systolic blood pressure 111 mm[Hg] [facility] 09-30-2023 10:48-0400 Body temperature 97 [degF] Ma Sand Work Phone: [facility] 09-30-2023 10:48-0400 Diastolic blood pressure 82 mm[Hg] Ma Sand Work Phone: [facility] 09-30-2023 10:48-0400 Heart rate 71 /min Ma Sand Work Phone: [facility] 09-30-2023 10:48-0400 Respiratory rate 18 /min Ma Sand Work Phone: [facility] 09-30-2023 10:48-0400 SaO2% (BldA) [Mass fraction] 97 % Ma Sand Work Phone: [facility] 09-30-2023 10:48-0400 Systolic blood pressure 132 mm[Hg] Ma Sand Work Phone: [facility] 09-22-2023 14:41-0400 Body weight 117.93 kg [facility] 08-31-2023 10:34-0400 Body temperature 97.3 [degF] Ma Sand Work Phone: [facility] 08-31-2023 10:34-0400 Diastolic blood pressure 66 mm[Hg] Ma Sand Work Phone: [facility] 08-31-2023 10:34-0400 Heart rate 68 /min Ma Sand Work Phone: [facility] 08-31-2023 10:34-0400 Respiratory rate 18 /min Ma Sand Work Phone: [facility] 08-31-2023 10:34-0400 SaO2% (BldA) [Mass fraction] 99 % Ma Sand Work Phone: [facility] 08-31-2023 10:34-0400 Systolic blood pressure 105 mm[Hg] Ma Sand Work Phone: [facility] 08-05-2023 11:15-0400 Body temperature 97.39 [degF] Ma Sand Work Phone: [facility] 08-05-2023 11:15-0400 Diastolic blood pressure 41 mm[Hg] Ma Sand Work Phone: [facility] 08-05-2023 11:15-0400 Heart rate 68 /min Ma Sand Work Phone: [facility] 08-05-2023 11:15-0400 Respiratory rate 18 /min Ma Sand Work Phone: [facility] 08-05-2023 11:15-0400 SaO2% (BldA) [Mass fraction] 98 % Ma Sand Work Phone: [facility] 08-05-2023 11:15-0400 Systolic blood pressure 98 mm[Hg] Ma Sand Work Phone: [facility] 07-13-2023 11:49-0500 Body temperature 97.5 [degF] Ma Sand Work Phone: [facility] 07-13-2023 11:49-0500 Diastolic blood pressure 74 mm[Hg] Ma Sand Work Phone: [facility] 07-13-2023 11:49-0500 Heart rate 83 /min Ma Sand Work Phone: [facility] 07-13-2023 11:49-0500 Respiratory rate 18 /min Cele Sand Work Phone: [facility] 07-13-2023 11:49-0500 SaO2% (BldA) [Mass fraction] 96 % Cele Sand Work Phone: [facility] 07-13-2023 11:49-0500 Systolic blood pressure 109 mm[Hg] Cele Sand Work Phone: [facility] 07-13-2023 10:01-0500 Diastolic blood pressure 65 mm[Hg] Lois Holm MD Work Phone: [facility] 07-13-2023 10:01-0500 Systolic blood pressure 105 mm[Hg] Lois Holm MD Work Phone: [facility] 07-13-2023 09:41-0500 Body height 170.2 cm Lois Holm MD Work Phone: [facility] 07-13-2023 09:41-0500 Body mass index (BMI) [Ratio] 43.85 kg/m2 Lois Holm MD Work Phone: [facility] 07-13-2023 09:41-0500 Body weight 127.01 kg Lois Holm MD Work Phone: [facility] 07-13-2023 09:41-0500 Heart rate 71 /min Lois Holm MD Work Phone: [facility] 07-06-2023 14:48-0500 Body mass index (BMI) [Ratio] 41.81 kg/m2 Kade Richardson MD Work Phone: [facility] 07-06-2023 14:48-0500 Body weight 119.3 kg Kade Richardson MD Work Phone: [facility] 06-09-2023 08:45-0500 Body height 170.2 cm Michelle Mitali DIRECTOR OF PRECLINICAL RESEARCH-HOME HEALTH NURSE LICENSED PRACTICAL Work Phone: [facility] 06-09-2023 08:45-0500 Body mass index (BMI) [Ratio] 44.48 kg/m2 Michelle Mitali DIRECTOR OF PRECLINICAL RESEARCH-HOME HEALTH NURSE LICENSED PRACTICAL Work Phone: [facility] 06-09-2023 08:45-0500 Body weight 128.82 kg Michelle Jasmine DIRECTOR OF PRECLINICAL RESEARCH-HOME HEALTH NURSE LICENSED PRACTICAL Work Phone: [facility] 06-09-2023 08:45-0500 Diastolic blood pressure 82 mm[Hg] Michelle Jasmine DIRECTOR OF PRECLINICAL RESEARCH-HOME HEALTH NURSE LICENSED PRACTICAL Work Phone: [facility] 06-09-2023 08:45-0500 Heart rate 80 /min Michelle Jasmine DIRECTOR OF PRECLINICAL RESEARCH-HOME HEALTH NURSE LICENSED PRACTICAL Work Phone: [facility] 06-09-2023 08:45-0500 Systolic blood pressure 146 mm[Hg] Michelle Jasmine DIRECTOR OF PRECLINICAL RESEARCH-HOME HEALTH NURSE LICENSED PRACTICAL Work Phone: [facility] 05-26-2023 17:17-0500 Body weight 123.83 kg Christie Phan MD Work Phone: [facility] 04-26-2023 14:42-0500 Body weight 125.19 kg Christie Phan MD Work Phone: [facility] 03-19-2023 11:16-0400 Body temperature 97.7 [degF] Ma Sand Work Phone: [facility] 03-19-2023 11:16-0400 Diastolic blood pressure 54 mm[Hg] Ma Sand Work Phone: [facility] 03-19-2023 11:16-0400 Heart rate 75 /min Ma Sand Work Phone: [facility] 03-19-2023 11:16-0400 Respiratory rate 16 /min Ma Sand Work Phone: [facility] 03-19-2023 11:16-0400 SaO2% (BldA) [Mass fraction] 96 % Ma Sand Work Phone: [facility] 03-19-2023 11:16-0400 Systolic blood pressure 111 mm[Hg] Ma Sand Work Phone: [facility] 02-19-2023 10:56-0400 Body height 170.2 cm Vera Najera MD Work Phone: [facility] 02-19-2023 10:56-0400 Body temperature 97.39 [degF] Vera Najera MD Work Phone: [facility] 02-19-2023 10:56-0400 Body weight 120.75 kg Vera Najera MD Work Phone: [facility] 02-19-2023 10:56-0400 Diastolic blood pressure 69 mm[Hg] Vera Najera MD Work Phone: [facility] 02-19-2023 10:56-0400 Heart rate 110 /min Vera Najera MD Work Phone: [facility] 02-19-2023 10:56-0400 Respiratory rate 16 /min Vera Najera MD Work Phone: [facility] 02-19-2023 10:56-0400 SaO2% (BldA) [Mass fraction] 96 % Vera Najera MD Work Phone: [facility] 02-19-2023 10:56-0400 Systolic blood pressure 132 mm[Hg] Vera Najera MD Work Phone: [facility] 01-22-2023 12:09-0400 Diastolic blood pressure 76 mm[Hg] Ma Sand Work Phone: [facility] 01-22-2023 12:09-0400 Systolic blood pressure 107 mm[Hg] Ma Sand Work Phone: [facility] 01-22-2023 12:08-0400 Body temperature 97.59 [degF] Ma Sand Work Phone: [facility] 01-22-2023 12:08-0400 Heart rate 102 /min Ma Sand Work Phone: [facility] 01-22-2023 12:08-0400 Respiratory rate 16 /min Ma Sand Work Phone: [facility] 01-22-2023 12:08-0400 SaO2% (BldA) [Mass fraction] 97 % Ma Sand Work Phone: [facility] 11-19-2022 11:00-0400 Body temperature 97.2 [degF] Ma Sand Work Phone: [facility] 11-19-2022 11:00-0400 Diastolic blood pressure 54 mm[Hg] Ma Sand Work Phone: [facility] 11-19-2022 11:00-0400 Heart rate 98 /min Ma Sand Work Phone: [facility] 11-19-2022 11:00-0400 Respiratory rate 16 /min Ma Sand Work Phone: [facility] 11-19-2022 11:00-0400 SaO2% (BldA) [Mass fraction] 98 % Ma Sand Work Phone: [facility] 11-19-2022 11:00-0400 Systolic blood pressure 126 mm[Hg] Ma Sand Work Phone: [facility] 10-22-2022 11:51-0400 Body height 170.2 cm Ma Sand Work Phone: [facility] 10-22-2022 11:51-0400 Body weight 120.66 kg Ma Sand Work Phone: [facility] 10-22-2022 11:51-0400 Respiratory rate 16 /min Ma Sand Work Phone: [facility] 10-22-2022 10:50-0400 Body height 170.2 cm Vera Najera MD Work Phone: [facility] 10-22-2022 10:50-0400 Body temperature 97 [degF] Vera Najera MD Work Phone: [facility] 10-22-2022 10:50-0400 Body weight 120.75 kg Vera Najera MD Work Phone: [facility] 10-22-2022 10:50-0400 Diastolic blood pressure 55 mm[Hg] Vera Najera MD Work Phone: [facility] 10-22-2022 10:50-0400 Heart rate 78 /min Vera Najera MD Work Phone: [facility] 10-22-2022 10:50-0400 Respiratory rate 16 /min Vera Najera MD Work Phone: [facility] 10-22-2022 10:50-0400 SaO2% (BldA) [Mass fraction] 98 % Vera Najera MD Work Phone: [facility] 10-22-2022 10:50-0400 Systolic blood pressure 132 mm[Hg] Vera Najera MD Work Phone: [facility] 09-24-2022 10:22-0400 Body height 170.2 cm Ma Sand Work Phone: [facility] 09-24-2022 10:22-0400 Body temperature 97 [degF] Ma Sand Work Phone: [facility] 09-24-2022 10:22-0400 Body weight 120.2 kg Ma Sand Work Phone: [facility] 09-24-2022 10:22-0400 Diastolic blood pressure 81 mm[Hg] Ma Sand Work Phone: [facility] 09-24-2022 10:22-0400 Heart rate 77 /min Ma Sand Work Phone: [facility] 09-24-2022 10:22-0400 Respiratory rate 16 /min Ma Sand Work Phone: [facility] 09-24-2022 10:22-0400 SaO2% (BldA) [Mass fraction] 97 % Ma Sand Work Phone: [facility] 09-24-2022 10:22-0400 Systolic blood pressure 116 mm[Hg] Ma Sand Work Phone: [facility] 09-07-2022 14:03-0400 Body weight 120.2 kg Christie Phan MD Work Phone: [facility] 08-27-2022 09:45-0400 Body height 170.2 cm Rebekah Rojas DIRECTOR OF PRECLINICAL RESEARCH.HOME HEALTH NURSE LICENSED PRACTICAL Work Phone: [facility] 08-27-2022 09:45-0400 Body temperature 97.7 [degF] Rebekah Rojas APRN.HOME HEALTH NURSE LICENSED PRACTICAL Work Phone: [facility] 08-27-2022 09:45-0400 Body weight 118.66 kg Rebekah Rojas APRN.HOME HEALTH NURSE LICENSED PRACTICAL Work Phone: [facility] 08-27-2022 09:45-0400 Diastolic blood pressure 55 mm[Hg] Rebekah Rojas APRN.HOME HEALTH NURSE LICENSED PRACTICAL Work Phone: [facility] 08-27-2022 09:45-0400 Heart rate 63 /min Rebekah Rojas APRN.HOME HEALTH NURSE LICENSED PRACTICAL Work Phone: [facility] 08-27-2022 09:45-0400 Respiratory rate 16 /min Rebekah Rojas APRN.HOME HEALTH NURSE LICENSED PRACTICAL Work Phone: [facility] 08-27-2022 09:45-0400 SaO2% (BldA) [Mass fraction] 96 % Rebekah Rojas APRN.HOME HEALTH NURSE LICENSED PRACTICAL Work Phone: [facility] 08-27-2022 09:45-0400 Systolic blood pressure 117 mm[Hg] Rebekah Rojas APRN.HOME HEALTH NURSE LICENSED PRACTICAL Work Phone: [facility] 05-20-2022 13:28-0500 Body height 170.2 cm Vera Najera MD Work Phone: [facility] 05-20-2022 13:28-0500 Body temperature 97.7 [degF] Vera Najera MD Work Phone: [facility] 05-20-2022 13:28-0500 Diastolic blood pressure 70 mm[Hg] Vera Najera MD Work Phone: [facility] 05-20-2022 13:28-0500 Heart rate 93 /min Vera Najera MD Work Phone: [facility] 05-20-2022 13:28-0500 Respiratory rate 16 /min Vera Najera MD Work Phone: [facility] 05-20-2022 13:28-0500 SaO2% (BldA) [Mass fraction] 97 % Vera Najera MD Work Phone: [facility] 05-20-2022 13:28-0500 Systolic blood pressure 127 mm[Hg] Vera Najera MD Work Phone: [facility] 03-18-2022 10:49-0400 Body height 170.2 cm Vera Najera MD Work Phone: [facility] 03-18-2022 10:49-0400 Body temperature 97.81 [degF] Vera Najera MD Work Phone: [facility] 03-18-2022 10:49-0400 Body weight 113.4 kg Vera Najera MD Work Phone: [facility] 03-18-2022 10:49-0400 Diastolic blood pressure 49 mm[Hg] Vera Najera MD Work Phone: [facility] 03-18-2022 10:49-0400 Heart rate 86 /min Vera Najera MD Work Phone: [facility] 03-18-2022 10:49-0400 Respiratory rate 16 /min Vera Najera MD Work Phone: [facility] 03-18-2022 10:49-0400 SaO2% (BldA) [Mass fraction] 98 % Vera Najera MD Work Phone: [facility] 03-18-2022 10:49-0400 Systolic blood pressure 145 mm[Hg] Vera Najera MD Work Phone: [facility] 03-09-2022 11:41-0400 Body height 170.2 cm Christie Phan MD Work Phone: [facility] 03-09-2022 11:41-0400 Body weight 112.49 kg Christie Phan MD Work Phone: [facility] 03-09-2022 11:41-0400 Diastolic blood pressure 100 mm[Hg] Christie Phan MD Work Phone: [facility] 03-09-2022 11:41-0400 Systolic blood pressure 158 mm[Hg] Christie Phan MD Work Phone: [facility] 03-04-2022 10:39-0400 Body height 170.2 cm Vera Najera MD Work Phone: [facility] 03-04-2022 10:39-0400 Body temperature 97.5 [degF] Vera Najera MD Work Phone: [facility] 03-04-2022 10:39-0400 Body weight 112.76 kg Vera Najera MD Work Phone: [facility] 03-04-2022 10:39-0400 Diastolic blood pressure 48 mm[Hg] Vera Najera MD Work Phone: [facility] 03-04-2022 10:39-0400 Heart rate 79 /min Vera Najera MD Work Phone: [facility] 03-04-2022 10:39-0400 Respiratory rate 16 /min Vera Najera MD Work Phone: [facility] 03-04-2022 10:39-0400 SaO2% (BldA) [Mass fraction] 99 % Vera Najera MD Work Phone: [facility] 03-04-2022 10:39-0400 Systolic blood pressure 132 mm[Hg] Vera Najera MD Work Phone: [facility] 11-26-2021 16:00-0400 Body height 168.91 cm Mirela Kelsey Other [facility] Other 11-26-2021 16:00-0400 Body mass index (BMI) [Ratio] 37.68 kg/m2 Mirela Kelsey Other [facility] Other 11-26-2021 16:00-0400 Body temperature 98.4 [degF] Mirela Buffy Other [facility] Other 11-26-2021 16:00-0400 Body weight 107.5 kg Mirela Kelsey Other [facility] Other 11-26-2021 16:00-0400 Diastolic blood pressure 61 mm[Hg] Mirela Kelsey Other [facility] Other 11-26-2021 16:00-0400 Systolic blood pressure 115 mm[Hg] Mirela Kelsey Other [facility] Other 10-24-2021 08:18-0400 Body weight 108.86 kg Lynne Ni MD Work Phone: [facility] 10-24-2021 08:18-0400 Diastolic blood pressure 42 mm[Hg] Lynne Ni MD Work Phone: [facility] 10-24-2021 08:18-0400 Heart rate 72 /min Lynne Ni MD Work Phone: [facility] 10-24-2021 08:18-0400 Systolic blood pressure 106 mm[Hg] Lynne Ni MD Work Phone: [facility] 10-15-2021 15:45-0400 Body height 168.91 cm Mirela Kelsey Other [facility] Other 10-15-2021 15:45-0400 Body mass index (BMI) [Ratio] 38.31 kg/m2 Mirela Kelsey Other [facility] Other 10-15-2021 15:45-0400 Body temperature 98.1 [degF] Mirela Kelsey Other [facility] Other 10-15-2021 15:45-0400 Body weight 109.32 kg Mirela Kelsey Other [facility] Other 10-15-2021 15:45-0400 Diastolic blood pressure 60 mm[Hg] Mirela Kelsey Other [facility] Other 10-15-2021 15:45-0400 Systolic blood pressure 114 mm[Hg] Mirela Kelsey Other [facility] Other 09-11-2021 15:15-0400 Body height 168.91 cm Mirela Kelsey Other [facility] Other 09-11-2021 15:15-0400 Body mass index (BMI) [Ratio] 37.99 kg/m2 Mirela Kelsey Other [facility] Other 09-11-2021 15:15-0400 Body temperature 97.9 [degF] Mirela Kelsey Other [facility] Other 09-11-2021 15:15-0400 Body weight 108.41 kg Mirela Buffy Other [facility] Other 09-11-2021 15:15-0400 Diastolic blood pressure 83 mm[Hg] Mirela Kelsey Other [facility] Other 09-11-2021 15:15-0400 Systolic blood pressure 144 mm[Hg] Mirela Kelsey Other [facility] Other 10-07-2020 12:45-0400 Diastolic blood pressure 78 mm[Hg] [facility] Phone: 10-07-2020 12:45-0400 Heart rate 68 /min [facility] Phone: 10-07-2020 12:45-0400 SaO2% (BldA) [Mass fraction] 99 % [facility] Phone: 10-07-2020 12:45-0400 Systolic blood pressure 112 mm[Hg] [facility] Phone: 10-07-2020 10:45-0400 Respiratory rate 22 /min [facility] Phone: 10-07-2020 09:01-0400 Body height 170.2 cm [facility] Phone: 10-07-2020 09:01-0400 Body mass index (BMI) [Ratio] 36.65 kg/m2 [facility] Phone: 10-07-2020 09:01-0400 Body temperature 97.81 [degF] [facility] Phone: 10-07-2020 09:01-0400 Body weight 106.14 kg [facility] Phone: Encounters Encounter Date Encounter Type Care Provider Facility Start: 02-21-2025 End: 02-22-2025 ambulatory VERA NAJERA Facility:[facility] Start: 02-14-2025 End: 02-14-2025 Office outpatient visit 15 minutes Bernabe English MD Work Phone: [facility] D[facility]at[facility] Comment on above: Pilonidal cyst (Primary Dx); Hidradenitis suppurativa Start: 02-14-2025 End: 02-14-2025 ambulatory BERNABE ENGLISH Not Available Start: 02-14-2025 End: 02-14-2025 Bamboo flowsheet Bernabe English MD Work Phone: [facility] Start: 02-14-2025 End: 02-14-2025 Bamderik flowsqian English MD Work Phone: [facility] Start: 02-14-2025 End: 02-14-2025 ambulatory Gay Enciso LAB CLERK-C Work Phone: [facility] Work Phone: Start: 02-14-2025 End: 02-14-2025 Patient encounter procedure Margie Arnett NP -[facility] Work Phone: Start: 02-08-2025 End: 02-09-2025 ambulatory LYNNE TSAI Facility:[facility] Start: 01-31-2025 End: 01-31-2025 Admission to same day surgery center Adolfo Kang MD -[facility] Work Phone: Start: 01-31-2025 End: 01-31-2025 ambulatory Gay Enciso LAB CLERK-C Work Phone: [facility] Work Phone: Start: 01-31-2025 Non-patient / Non-visit Adolfo [facility] Work Phone: [...] Start: 01-17-2025 End: 01-17-2025 ambulatory Gay Enciso LAB CLERK-C Work Phone: [facility] Work Phone: Start: 01-17-2025 End: 01-17-2025 Patient encounter procedure [facility]ie Ar[facility] Work Phone: Start: 01-11-2025 End: 01-12-2025 ambulatory Chair 16 [place] Work Phone: Hematology/Oncology Comment on above: Other systemic lupus erythematosus with other organ involvement (HCC) (Primary Dx); Elevated LFTs; Anemia of chronic disease; Elevated sed rate; Elevated C-reactive protein (CRP); Vitamin D deficiency; Vitamin B12 deficiency; Screening-pulmonary TB Start: 12-27-2024 End: 12-27-2024 ambulatory VERA NAJERA Facility:[facility] Start: 12-14-2024 End: 12-14-2024 Chart abstracting [facility] Main Work Phone: Neurology Comment on above: CMN Start: 12-14-2024 End: 12-15-2024 ambulatory Chair 16 [facility] Work Phone: Hematology/Oncology Comment on above: Other systemic lupus erythematosus with other organ involvement (HCC) (Primary Dx) Start: 12-12-2024 End: 12-12-2024 Patient encounter procedure Bandar Batista APRN -[facility] Gastro Work Phone: Start: 11-30-2024 End: 11-30-2024 Follow-up encounter Vaibhav Carvalho APRN.CNP Work Phone: Hematology/Oncology Comment on above: Results Start: 11-30-2024 End: 11-30-2024 ambulatory Gay Enciso LAB CLERK-C Work Phone: [facility] Work Phone: Start: 11-30-2024 End: 11-30-2024 Patient encounter procedure Margie Arnett NP -[facility] Work Phone: Start: 11-29-2024 [...] Not Available Start: 11-22-2024 ambulatory Janes Barfield Facility:[facility] Start: 11-22-2024 Registered Recurring Janes Barfield MD - Credible Start: 11-21-2024 End: 11-21-2024 ambulatory Gay Enciso LAB CLERK-C Work Phone: [facility] Work Phone: Start: 11-21-2024 End: 11-21-2024 Patient encounter procedure Adolfo Kang MD -[facility] Work Phone: Start: 11-21-2024 Non-patient / [...] 11-15-2024 End: 11-20-2024 Telephone encounter Cesilia Whalen [facility] Work Phone: [facility] HB[facility] Start: 11-13-2024 End: 11-13-2024 Patient encounter procedure Adolfo Kang MD -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; Bilateral hand pain; Family history of Crohn's disease; 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; Bilateral wrist pain Start: 10-07-2024 End: 10-07-2024 Telemedicine consultation with patient Lynne Ni MD Work Phone: Rheumatology Start: 10-07-2024 End: 10-07-2024 ambulatory LYNNE NI Facility:[facility] Start: 10-06-2024 End: 10-06-2024 Telephone encounter [...] 09-20-2024 End: 09-20-2024 Specialty Pharmacy Aidee Quintanilla [facility] Comment on above: SPP Inflammatory Conditions - Medication Refill (Benlysta) Start: 09-19-2024 End: 09-19-2024 ambulatory MANUEL FERRIS Facility:[facility] Start: 09-19-2024 End: 09-19-2024 Patient encounter procedure Deborah Arroyo [facility] Work Phone: [employer] Comment on above: Fibromyalgia (Primary Dx); Family history of disease of aorta; Family history of cancer Generalized articula r hypermobility (Primary Dx); Chronic pain syndrome; Discoid lupus erythematosus; Family history of pneumothorax in son; Family history of cancer; Family history of mild aortic dilation in daughter Start: 09-19-2024 End: 09-19-2024 ambulatory LYNNE NI Facility:[facility] Start: 09-18-2024 End: 09-18-2024 Telephone encounter Vera Najera MD Work Phone: [facility] Comment on above: Future Appointment Start: 09-18-2024 End: 09-18-2024 ambulatory Chair 19 [place] Work Phone: Hematology/Oncology Comment on above: Other systemic lupus erythematosus with other organ involvement (HCC) (Primary Dx) Refill Request Start: 09-07-2024 End: 09-07-2024 Follow-up encounter Vaibhav Carvalho APRN.HOME HEALTH NURSE [facility]ICENSED PRACTICAL Work Phone: Hematology/Oncology Comment on above: Results [...] Office outpatient visit 25 minutes Vaibhav Carvalho APRN.HOME HEALTH NURSE [facility]ICENSED PRACTICAL Work Phone: Hematology/Oncology Comment on above: Hypogammaglobulinemia (HCC) (Primary Dx) ; Vitamin B12 deficiency; Other iron deficiency anemia; Megaloblastic anemia due to vitamin B12 deficiency Start: 09-06-2024 End: 09-06-2024 ambulatory VAIBHAV CARVALHO Facility:[facility] Start: 09-04-2024 End: 09-04-2024 Office outpatient visit 25 minutes Gordo Barfield MD Work Phone: [facility] Comment on above: Thyroid nodule (CMS/HCC) (Primary Dx); LPRD (laryngopharyngeal reflux disease) Start: 09-04-2024 End: 09-04-2024 ambulatory GORDO BARFIELD Not Available Start: 09-04-2024 End: 09-04-2024 Bamderik flowsheet Gordo Barfield MD [facility] Start: 09-04-2024 End: 09-04-2024 Bamderik flowsheet Gordo Barfield MD Work Phone: [facility] Start: 09-01-2024 End: 09-02-2024 Refill Lynne Ni MD Work Phone: Rheumatology Comment on above: Refill Request Start: 08-29-2024 End: 08-29-2024 ambulatory MANUEL FERRIS Facility:[facility] Start: 08-28-2024 End: 08-28-2024 Telephone encounter Vaibhav Carvalho APRN.CNP Work Phone: Hematology/Oncology Comment on above: Lab Orders Start: 08-24-2024 End: 08-24-2024 Clinisync Result Encounter Gordo Barfield MD Work Phone: [facility] External Department Unsolicited Start: 08-24-2024 End: 08-24-2024 Clinisync Result Encounter Gordo Barfield MD Work Phone: [facility] External Department Unsolicited Start: 08-22-2024 End: 08-22-2024 ambulatory Gay Enciso NP-C Work Phone: [facility] Work Phone: Start: 08-22-2024 End: 08-22-2024 Patient encounter procedure Gay Enciso NP-C Work Phone: [facility] Work Phone: Start: 08-17-2024 End: 08-17-2024 Specialty Pharmacy Aidee Quintanilla [facility] Comment on above: SPP [...] End: 07-31-2024 ambulatory Gay GALEANO Work Phone: [facility] Work Phone: Start: 07-31-2024 End: 07-31-2024 Patient encounter procedure Gay GALEANO Work Phone: [facility] Pain Mg[facility] Work Phone: Start: 07-26-2024 End: 07-26-2024 Office outpatient visit 25 minutes Lois Holm MD Work Phone: [facility] Comment on above: Sinus tachycardia (Primary Dx); Shortness of breath; Paroxysmal supraventricular tachycardia (CMS-HCC); Essential hypertension; Obstructive sleep apnea syndrome; Morbid obesity (Multi); Current smoker Start: 07-26-2024 End: 07-26-2024 ambulatory LOIS Batista [facility] Ambulatory Start: 07-25-2024 End: 07-25-2024 Bamboo flowsheet Bernabe English MD Work Phone: [facility] Start: 07-25-2024 End: 07-25-2024 Bamboo flowsheet Bernabe English MD Work Phone: [facility] Start: 07-25-2024 End: 07-25-2024 Office outpatient visit 25 minutes eBrnabe English MD Work Phone: [facility] Comment on above: Hidradenitis suppurativa (Primary Dx); Other seborrheic dermatitis; Lupus erythematosus tumidus (CMS/HCC); Rash and other nonspecific skin eruption; Capillary angioma; Neoplasm of uncertain behavior of skin Start: 07-25-2024 End: 07-25-2024 Specialty Pharmacy Aidee Dwight [facility] Comment on above: SPP [...] Non-patient / Non-visit Gay GALEANO Work Phone: [facility] Pain Mgmt Work Phone: Start: 07-19-2024 End: 07-19-2024 Admission to same day surgery center Gay GALEANO Work Phone: [facility] Work Phone: Start: 07-19-2024 End: 07-19-2024 ambulatory Gay GALEANO Work Phone: [facility] Work Phone: Start: 07-12-2024 End: 07-12-2024 ambulatory MARKY BARNES Facility:[facility] Start: 07-12-2024 End: 07-12-2024 Patient encounter [...] lupus erythematosus Start: 07-10-2024 End: 07-10-2024 ambulatory [facility] Work Phone: Start: 07-10-2024 End: 07-10-2024 Patient encounter [facility] Work Phone: Start: 07-09-2024 End: 07-10-2024 Telephone encounter Lynne Ni MD Work Phone: Rheumatology Comment on above: Results Start: 06-30-2024 End: 06-30-2024 ambulatory LYNNE NI Facility:[facility] Start: 06-29-2024 End: 06-29-2024 Specialty Pharmacy Aidee Quintanilla [facility] Comment on above: SPP Inflammatory Conditions - Medication Refill (Benlysta) Start: 06-20-2024 End: 06-23-2024 ambulatory [facility] [place] Comment on above: Iron Infusions Start: 06-20-2024 End: 06-21-2024 E-mail encounter from caregiver [facility] Start: 06-20-2024 End: 06-23-2024 Patient encounter procedure Lynne Ni MD Work Phone: Rheumatology Comment on above: Flair Start: 06-16-2024 End: 06-20-2024 Telephone encounter Vaihbav Carvalho APRN.HOME HEALTH NURSE LICENSED PRACTICAL Work Phone: Hematology/Oncology Start: 06-15-2024 End: 06-15-2024 Telephone encounter Oly WARREN Work Phone: [facility] Start: 06-14-2024 End: 06-14-2024 Nursing evaluation of patient and report Breath Test Silverio Cp Nsg Wl Work Phone: [facility] Comment on above: Diarrhea, unspecified type (Primary Dx); Abdominal pressure Start: 06-13-2024 End: 01-21-2025 Office outpatient visit 25 minutes Vaibhav Carvalho APRN.HOME HEALTH NURSE LICENSED PRACTICAL Work Phone: Hematology/Oncology Comment on above: Megaloblastic [...] 06-12-2024 End: 06-13-2024 Telephone encounter Vaibhav Carvalho APRN.HOME HEALTH NURSE LICENSED PRACTICAL Work Phone: Hematology/Oncology Comment on above: Lab Orders Start: 06-06-2024 End: 06-06-2024 Bamboo flowsheet Oly WARREN Work Phone: [facility] Start: 06-06-2024 End: 06-10-2024 Bamboo flowsheet Oly WARREN Work Phone: [facility] Start: 06-06-2024 End: 06-10-2024 Clinisync Result Encounter Oly WARREN Work Phone: [facility] External Department Unsolicited Start: 06-06-2024 End: 06-06-2024 Specialty Pharmacy Aidee Quintanilla [facility] Comment on above: SPP [...] 05-15-2024 End: 05-15-2024 Social Work Deisy Jaime [employer]IST Hematology/Oncology Start: 05-12-2024 End: 05-12-2024 Specialty Pharmacy Aidee Quintanilla [facility] Comment on above: SPP Inflammatory Conditions - Medication Refill (Benlysta) Start: 04-28-2024 End: 04-28-2024 Orders Only Pepper Cotter LPN [facility] Comment on above: Peripheral vascular disease, unspecified (CMS-HCC) (Primary Dx); Cold extremities; Systemic lupus erythematosus (CMS-HCC) Start: 04-26-2024 End: 04-26-2024 ambulatory [facility] Facility:[facility] Start: 04-26-2024 End: 04-26-2024 Nursing evaluation of patient and report Cele Marshall Work Phone: Hematology/Oncology Comment on above: Elevated sed rate (Primary Dx); Megaloblastic anemia due to vitamin B12 deficiency Start: 04-14-2024 End: 10-05-2024 Telephone encounter [facility] Work Phone: [facility] Comment on above: Patient Update; Appointment Start: 04-11-2024 End: 04-11-2024 Specialty Pharmacy Aidee Quintanilla [facility] Comment on above: SPP Inflammatory Conditions - Medication Refill (Benlysta) Start: 04-10-2024 End: 04-10-2024 Bamboo flowsheet Gordo Barfield MD Work Phone: [facility] Start: 04-10-2024 End: 04-10-2024 Bamboo flowsheet Gordo Barfield MD Work Phone: [facility]IN [facility] Start: 04-10-2024 End: 04-10-2024 Telephone encounter Vera Najera MD Work Phone: [facility] Comment on above: Appointment Start: 04-10-2024 End: 04-10-2024 Office outpatient visit 25 minutes Gordo Barfield MD Work Phone: [facility] Comment on above: LPRD (laryngopharyngeal reflux disease) (Primary Dx); Acute otalgia, right Start: 04-10-2024 End: 04-10-2024 ambulatory GORDO BARFIELD Not Available Start: 04-07-2024 End: 04-07-2024 Social Work Deisy Jaime [facility] Hematology/Oncology Start: 04-06-2024 End: 04-06-2024 Clinisync Result Encounter Oly WARREN Work Phone: [facility] External Department Unsolicited Start: 04-06-2024 End: 04-06-2024 Clinisync Result Encounter Oly WARREN Work Phone: [facility] External Department Unsolicited Start: 04-06-2024 End: 04-06-2024 Office outpatient new 30 minutes Hayden Arciniega MD Work Phone: [facility] Comment on above: Systemic lupus erythematosus (CMS-HCC) ( Primary Dx); Cold extremities; Pain of lower extremity, unspecified laterality; Rheumatoid arthritis, involving unspecified site, unspecified whether rheumatoid factor present (CMS-HCC); Current smoker; 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 Start: 04-03-2024 End: 04-03-2024 Refill Marky Mike DO Work Phone: [facility] Comment on above: Oral [...] 03-30-2024 ambulatory Maico Douglas MD Work Phone: [facility] Start: 03-27-2024 End: 03-28-2024 ambulatory Vera Najera MD Work Phone: Hematology/Oncology Comment on above: 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); High total serum IgM; JOSE RAFALE (obstructive sleep apnea); Elevated sed rate; Hypogammaglobulinemia (HCC); Frequent infections Start: 03-27-2024 End: 03-28-2024 Telemedicine consultation with patient Vera Najera MD Work Phone: Hematology/Oncology Start: 03-27-2024 End: 03-28-2024 ambulatory VERA NAJERA Facility:[facility] Start: 03-23-2024 End: 03-23-2024 ambulatory OLY [...] Telephone encounter Akiko Cooper MD Work Phone: [facility] Start: 03-18-2024 End: 03-18-2024 ambulatory LYNNE NI Facility:[facility] Start: 03-18-2024 End: 03-18-2024 Patient [...] both feet; Long-term use of high-risk medication; 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; Bilateral hand [...] Not Available Start: 03-16-2024 End: 03-16-2024 ambulatory LAB CLERK-C Gay Enciso Work Phone: [facility] Work Phone: Start: 03-16-2024 End: 03-16-2024 Patient encounter procedure LAB CLERK-C Gay Enciso Work Phone: [facility] Work Phone: Start: 03-13-2024 End: 03-13-2024 Specialty Pharmacy Aidee Quintanilla [facility] Comment on above: SPP Inflammatory Conditions - Medication Refill (Benlysta - [facility] 09/2024) Start: 03-08-2024 End: 03-08-2024 ambulatory EHAB [facility] Start: 03-07-2024 End: 03-08-2024 Chart abstracting [facility] Main Work Phone: Neurology Comment on above: cmn Start: 03-02-2024 End: 03-02-2024 Refill Zita Cuellar LAB CLERK Work Phone: [facility] 210 Comment on above: Lumbosacral radiculopathy at L5; Degenerative disc disease, lumbar; Cervical radiculopathy at C5 Start: 02-28-2024 End: 02-28-2024 ambulatory LAB CLERK-C Gay Enciso Work Phone: [facility] Work Phone: Start: 02-28-2024 End: 02-28-2024 Patient encounter procedure LAB CLERK-C Gay Enciso Work Phone: [facility] Pain Management Work Phone: Start: 02-22-2024 End: 02-22-2024 Telephone encounter Oly CHO Work Phone: [facility] Comment on above: 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 ) Start: 02-21-2024 End: 02-21-2024 Nursing evaluation of patient and report Cele Nurse Dre Marshall Work Phone: Hematology/Oncology Comment on above: Elevated sed rate (Primary Dx); Megaloblastic anemia due to vitamin B12 deficiency Start: 02-18-2024 End: 02-18-2024 Telephone encounter Lynne Ni MD Work Phone: Rheumatology Start: 02-16-2024 Non-patient / Non-visit LAB CLERK-C Gay Enciso Work Phone: [facility] Work Phone: Start: 02-16-2024 End: 02-16-2024 Admission to same day surgery center LAB CLERK-C Gay Enciso Work Phone: [facility] Work Phone: Start: 02-16-2024 End: 02-16-2024 ambulatory LAB CLERK-C Gay Enciso Work Phone: [facility] Work Phone: Start: 02-15-2024 End: 02-15-2024 Telephone encounter Lexus Heck APRN.HOME HEALTH NURSE LICENSED PRACTICAL Work Phone: Neurology Comment on above: Orders (PAP RX.) Start: 02-14-2024 End: 02-14-2024 Follow-up encounter Aidee Quintanilla [facility] Comment on above: SPP Inflammatory Conditions - Follow-up (Benlysta); Insurance Authorization ([place] Renewal Submitted) Start: 02-14-2024 End: 02-14-2024 ambulatory Lexuschichi Heck APRN.HOME HEALTH NURSE LICENSED PRACTICAL Work Phone: Neurology Comment on above: JOSE RAFAEL (obstructive sleep apnea) (Primary D x); Somnolence, daytime SPP Inflammatory Con ditions - Medication Refill (Benlysta - [facility] 09/2024) Start: 02-14-2024 End: 02-14-2024 Telemedicine consultation with patient Lexus Heck APROrionHOME HEALTH NURSE LICENSED PRACTICAL Work Phone: Neurology Start: 02-09-2024 End: 02-09-2024 Bamboo flowsheet Zita Cuellar LAB CLERK Work Phone: [facility] Start: 02-09-2024 End: 02-09-2024 Bamboo flowsheet Zita Cuellar LAB CLERK Work Phone: [facility] Start: 02-09-2024 End: 02-09-2024 Phys/qhp telephone evaluation 21-30 min Zita Cuellar LAB CLERK Work Phone: [facility] 210 Comment on above: Lumbosacral radiculopathy at L5 (Primary Dx); Degenerative disc disease, lumbar; Cervical radiculopathy at C5 Start: 02-07-2024 End: 02-07-2024 Refill Zita Cuellar LAB CLERK Work Phone: [facility] 210 Comment on above: Autoimmune disease (CMS/HCC); Fibromyalgia; Numbness Start: 01-28-2024 End: 01-31-2024 ambulatory Alhaji Head DO Work Phone: [facility] Work Phone: Comment on above: Blood work Start: 01-28-2024 End: 01-28-2024 Patient encounter procedure [facility] [place] Work Phone: Start: 01-27-2024 End: 01-27-2024 Telemedicine [...] 01-20-2024 Refill Kade Richardson MD Work Phone: [facility] 210 Comment on above: Degenerative disc disease, lumbar (Prima ry Dx); Lumbosacral radiculopathy at L5 Start: 01-18-2024 End: 01-19-2024 Specialty Pharmacy Aidee Quintanilla [facility] Comment on above: SPP [...] apnea syndrome Start: 12-24-2023 End: 12-24-2023 ambulatory [facility] Start: 12-16-2023 End: 12-16-2023 ambulatory [facility] Work Phone: Start: 12-16-2023 End: 12-16-2023 Patient encounter procedure [facility] Infectious Disease Work Phone: Start: 12-13-2023 Specialty Pharmacy Aidee Quintanilla [facility] Comment on above: SPP [...] acid Start: 11-15-2023 Specialty Pharmacy Aidee Quintanilla [facility] Comment on above: SPP Inflammatory Conditions - Medication Refill (Benlysta - NCA 09/2024) Start: 11-11-2023 Refill Lynne Ni MD Work Phone: Rheumatology Comment on above: Refill Request Start: 11-04-2023 End: 11-04-2023 [facility] Work Phone: Start: 11-04-2023 End: 11-04-2023 Patient encounter procedure [facility] Infectious Disease Work Phone: Start: [...] above: Cdiff Start: 10-20-2023 End: 10-20-2023 ambulatory [facility] Work Phone: Start: 10-20-2023 End: 10-20-2023 Patient encounter procedure [facility] Infectious Disease Work Phone: Start: 10-12-2023 Specialty Pharmacy Aidee Quintanilla [facility] Comment on above: SPP [...] of Plaquenil; Long-term use of high-risk medication; 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; Raynaud's disease [...] Start: 09-22-2023 End: 09-22-2023 Patient encounter procedure [facility] Gastroenterology Work Phone: Start: 09-13-2023 Specialty Pharmacy Aidee Quintanilla [facility] Comment on above: SPP [...] with patient Vera Najera MD Work Phone: [place] Start: 09-04-2023 Telephone encounter Lynne Ni MD Work Phone: Rheumatology Comment on above: Results Start: 08-31-2023 End: 08-31-2023 Nursing evaluation of patient and report Cele Marshall Work Phone: Hematology/Oncology Comment on above: 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); Elevated sed rate Start: 08-12-2023 Specialty Pharmacy Aidee Quintanilla [facility] Comment on above: SPP Inflammatory Conditions - Medication Refill (Benlysta ) Start: 08-05-2023 End: 08-05-2023 Nursing evaluation of patient and report Cele Marshall Work Phone: Hematology/Oncology Comment on above: 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); Elevated sed rate Start: 07-28-2023 Non-patient [facility] Gastroenterology Work Phone: Start: 07-13-2023 ambulatory Aidee Quintanilla [facility] Start: 07-13-2023 End: 07-13-2023 Nursing evaluation of patient and report Cele Marshall Work Phone: Hematology/Oncology Comment on above: 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); Elevated sed rate SPP Inflammatory Con ditions - Medication Refill (Benlysta ) Start: 07-13-2023 End: 07-13-2023 Office outpatient new 45 minutes Lois Holm MD Work Phone: [facility] Comment on above: Shortness of breath (Primary Dx); Paroxysmal supraventricular tachycardia; PAC (premature atrial contraction); Current smoker; Systemic lupus erythematosus, unspecified SLE type, unspecified organ involvement status (CMS/HCC); Palpitations; Obstructive sleep apnea syndrome; Morbid obesity (CMS/HCC); Bilateral lower extremity edema Start: 07-06-2023 End: 07-06-2023 Office outpatient visit 25 minutes Kade Richardson MD Work Phone: [facility] Comment on above: Autoimmune disease (CMS/HCC) (Primary Dx ); Autonomic dysfunction; Lumbosacral radiculopathy; Bilateral leg weakness Start: 07-05-2023 Chart abstracting Kade Richardson MD Work Phone: [facility] Start: 06-09-2023 End: 06-09-2023 Office outpatient new 60 minutes Michelle Jasmine DIRECTOR OF PRECLINICAL RESEARCH-HOME HEALTH NURSE LICENSED PRACTICAL Work Phone: [facility] Comment on above: Irregular heart rate (Primary [...] deficiency; Elevated sed rate; Bilateral wrist pain; 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; Steroid-induced osteoporosis; [...] with patient Lynne Ni MD Work Phone: [facility] Start: 01-28-2023 Refill Christie Phan MD Work [...] with patient Misty Nelson MD Work Phone: [facility] Start: 12-24-2022 Refill Christie Phan MD Work Phone: Integrated Medicine Comment on above: Refill Request Start: 12-18-2022 Telephone encounter Lidia Argueta RN Work Phone: Hematology/Oncology Comment on above: Care Coordination (appointment) Start: 12-17-2022 End: 12-18-2022 ambulatory Rebekah Rojas APRN.HOME HEALTH NURSE LICENSED PRACTICAL Work Phone: Hematology/Oncology Comment on above: 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); Chronic fatigue and malaise Start: 12-17-2022 End: 12-18-2022 Telemedicine consultation with patient Rebekah Rojas APRN.HOME HEALTH NURSE LICENSED PRACTICAL Work Phone: [place] Start: 12-16-2022 Telephone encounter [...] Facility:[facility]1 Start: 09-08-2022 Telephone encounter Angelia Washington [facility] Delivery - Compliance Comment on above: [...] Start: 08-27-2022 End: 08-27-2022 ambulatory Rebekah Rojas APRN.HOME HEALTH NURSE LICENSED PRACTICAL Work Phone: Hematology/Oncology Comment on above: 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); Elevated sed rate; High total serum IgM; Chronic fatigue and malaise; JOSE RAFAEL (obstructive sleep apnea) Start: 08-27-2022 End: 08-27-2022 Patient encounter procedure Rebekah Rojas APRN.HOME HEALTH NURSE LICENSED PRACTICAL Work Phone: [place] Start: 08-19-2022 Telephone encounter [...] 07-27-2022 Telemedicine consultation with patient Lexus Heck APRN.HOME HEALTH NURSE LICENSED PRACTICAL Work Phone: [facility] Start: 07-24-2022 ambulatory Lynne Ni MD Work Phone: Rheumatology Comment on above: Blood work Start: 07-24-2022 Telephone encounter Vera Najera MD Work Phone: Hematology/Oncology Comment on above: Orders (Lab Orders Before Appoint ment) Start: 07-21-2022 ambulatory Lawanda Miranda MD Work Phone: [facility] Start: 07-21-2022 Patient encounter procedure [...] Coordinator [facility] Comment on above: Appointment; [employer] - Other Start: 03-31-2022 End: 04-01-[address] MANUEL FERRIS . Facility:[facility]1 Start: 03-31-2022 Refill Christie Phan MD Work Phone: [facility] Comment on above: Refill Request Start: 03-30-2022 [...] from caregiver Christie Phan MD Work Phone: [facility] Start: 03-18-2022 End: 03-18-2022 Patient encounter procedure Vera Najera MD Work Phone: [place] Start: 03-12-2022 End: 03-13-[address] MANUEL FERRIS . Facility:[facility]1 Start: 03-10-2022 End: 03-10-2022 ambulatory Alhaji Head DO Work Phone: Infectious Disease Comment on above: results Raised level of immu noglobulins (Primary Dx); Wound healing, delayed; Current smoker Start: 03-10-2022 E-mail encounter from caregiver Alhaji Head DO Work Phone: [facility] Start: 03-10-2022 End: 03-10-2022 Telemedicine consultation with patient Misty Nelson MD Work Phone: [facility] Start: 03-09-2022 End: 03-10-2022 ambulatory GAY ENCISO Facility:[facility]1 Start: 03-09-2022 End: 03-09-2022 Office consultation new/estab patient 80 min Christie Phan MD Work Phone: [facility] Comment on above: Obesity, Class II, BMI [...] encounter procedure Vera Najera MD Work Phone: [place] Start: 03-02-2022 Chart abstracting Vera Najera MD [...] with patient Alhaji Head DO Work Phone: [facility] Start: 02-14-2022 End: 02-15-[address] MANUEL FERRIS . Facility:[facility]1 Start: 11-26-2021 End: 11-26-2021 ambulatory Mirela Kelsey Other [employer] Other Start: 11-26-2021 Office outpatient visit 25 [...] 10-15-2021 End: 10-15-2021 ambulatory Mirela Kelsey Other [employer] Other Start: 10-15-2021 Office outpatient visit 25 minutes Mirela LOPEZ Infectious Disease Start: 10-03-2021 End: [address] MIRELA KELSEY Facility:[facility]1 Start: 09-18-2021 End: 09-18-2021 ambulatory Mirela Kelsey Other [employer] Other Start: 09-18-2021 Telephone encounter Mirela LOPEZ Infectious Disease Start: 09-11-2021 End: 09-11-2021 ambulatory Mirela Kelsey Other [employer] Other Start: 09-11-2021 Office outpatient new 45 minutes Mirela Buffy LOPEZ Infectious Disease Start: 10-07-2020 End: 10-08-2020 ambulatory AMEER LEYDI [facility] Start: 10-07-2020 End: 10-07-2020 Subsequent hospital visit by physician Stv System Specialist Rm A STVZ System Specialist Comment on above: Arrived Start: 09-14-2018 End: 09-17-2018 Patient encounter procedure VICTOR MANUEL GUZMAN [facility] Procedures Date Procedure Procedure Detail Performing Clinician Start: 01-31-2025 DH Nerve Radio Frequ ency (Bilateral) Gay Enciso LAB CLERK-C Work Phone: Start: 01-11-2025 Blood count complete automated Lynne Ni MD Work Phone: Start: 10-02-2024 Blood count complete automated Lynne Ni MD Work Phone: Start: 10-02-2024 C-reactive protein Christie Ni MD Work Phone: Start: 09-06-2024 Assay of gammaglobul in iga igd igg igm each Vaibhavanil Carvalho DIRECTOR OF PRECLINICAL RESEARCH.HOME HEALTH NURSE LICENSED PRACTICAL Work Phone: Start: 08-24-2024 soft tissue head & neck real time imge docm Gordo Barfield MD Work Phone: Start: 07-19-2024 Injection of local anesthetic into sacroiliac joint Gay Enciso LAB CLERK-C Work Phone: Start: 06-13-2024 Blood count complete auto&auto difrntl wbc Vaibhav Carvalho DIRECTOR OF PRECLINICAL RESEARCH.HOME HEALTH NURSE LICENSED PRACTICAL Work Phone: Start: 06-06-2024 IGP,APTIMA HPV,AGE GDLN [...] Injection of local anesthetic into sacroiliac joint LAB CLERK-C Gay Enciso Work Phone: Start: 07-13-2023 Ecg routine ecg w/le ast 12 lds w/i&r Lois Holm MD Work Phone: Start: 06-09-2023 Ecg routine ecg w/le ast 12 lds w/i&r Michelle Jasmine DIRECTOR OF PRECLINICAL RESEARCH-HOME HEALTH NURSE LICENSED PRACTICAL Work Phone: Start: 09-10-2022 Microscopic observat ion [...] 09-11-2027 Screening for malignant neoplasm of cervix [facility] Start: 06-06-2027 Screening for malignant neoplasm of cervix [facility] Start: 09-10-2025 Screening for malignant neoplasm of cervix Pap Smear [facility] Start: 07-26-2025 End: 07-26-2025 Patient encounter procedure 07/26/2025 11:00 AM EST Office Visit [facility] [address] [place] [address] Lois Holm MD [address] [facility] [address] [place] [address] [facility] Start: 07-25-2025 End: 07-25-2025 Patient encounter procedure [facility]ER[facility] Start: 04-20-2025 End: 01-18-2026 25-hydroxyvitamin D3 [Mass/volume] in Serum or Plasma VITAMIN D 25 HYDROXY Lab Routine Vitamin D deficiency Expected: 04/20/2025 (Approximate), Expires: 01/18/2026 [facility] Comment on above: Expected: 04/20/2025 (Approximate), Expi res: 01/18/2026 Start: 04-20-2025 End: 01-18-2026 C reactive protein [Mass/volume] in Serum or Plasma C-REACTIVE PROTEIN Lab Routine Elevated C-reactive protein (CRP) Elevated sed rate Expected: 04/20/2025 (Approximate), Expires: 01/18/2026 [facility] Comment on above: Expected: 04/20/2025 (Approximate), Expi res: 01/18/2026 Start: 04-20-2025 End: 01-18-2026 CBC panel - Blood by Automated count COMPLETE BLOOD COUNT Lab Routine Anemia of chronic disease Expected: 04/20/2025 (Approximate), Expires: 01/18/2026 [facility] Comment on above: Expected: 04/20/2025 (Approximate), Expi res: 01/18/2026 Start: 04-20-2025 End: 01-18-2026 Comprehensive metabolic 2000 panel - Serum or Plasma COMPREHENSIVE METABOLIC PANEL Lab Routine Elevated LFTs Expected: 04/20/2025 (Approximate), Expires: 01/18/2026 [facility] Work Phone: Comment on above: Expected: 04/20/2025 (Approximate), Expi res: 01/18/2026 Start: 04-20-2025 End: 01-18-2026 Erythrocyte sedimentation rate SEDIMENTATION RATE, WESTERGREN Lab Routine Elevated C-reactive protein (CRP) Elevated sed rate Expected: 04/20/2025 (Approximate), Expires: 01/18/2026 [facility] Comment on above: Expected: 04/20/2025 (Approximate), Expi res: 01/18/2026 Start: 04-07-2025 Screening for malignant neoplasm of breast Mammogram [facility] Start: 04-06-2025 Adult BMI Screening Adult BMI Screening [facility] Start: 04-06-2025 Screening for malignant neoplasm of breast Mammogram [facility] Start: 04-06-2025 Tobacco Screening Tobacco Screening [facility] Start: 03-19-2025 End: 03-19-2025 Patient encounter procedure NOMLucinda SELVIN SANTO Start: 03-17-2025 Diabetes mellitus screening Diabetes Screening [facility] Start: 02-21-2025 End: 02-21-2025 ambulatory Hematology/Oncology Comment on above: 3 mo F/U-IVIG Start: 02-21-2025 End: 02-21-2025 Patient encounter procedure 02/21/2025 8:45 AM EDT Office Visit [facility] [address] [place] [address] 3 mo F/U-IVIG [facility] Comment on above: 3 mo F/U-IVIG Start: 02-14-2025 End: 02-14-2025 Patient encounter procedure 02/14/2025 3:20 PM EDT Office Visit [facility] [address] [place] [id number] Bernabe English MD [address] [place] [address] Arrived [facility] Comment on above: Arrived Start: 02-08-2025 End: 02-08-2025 ambulatory 02/08/2025 2:00 PM EDT [facility] Hematology/Oncology [address] [place] [address] [place] [address] [facility] - Hematology/Oncology Comment on above: [facility] - Start: 01-31-2025 [facility] Start: 01-24-2025 End: 01-24-2025 ambulatory Hematology/Oncology Comment on above: IVIG q4 weeks IVIG(5hours) q4 week s Start: 01-22-2025 Influenza vaccination [facility] Start: 01-06-2025 End: 10-06-2025 25-hydroxyvitamin D3 [Mass/volume] in Serum or Plasma VITAMIN D 25 HYDROXY Lab Routine Vitamin D deficiency Expected: 01/06/2025 (Approximate), Expires: 10/06/2025 [facility] Comment on above: Expected: 01/06/2025 (Approximate), Expi res: 10/06/2025 Start: 01-06-2025 End: 10-06-2025 BLOOD TB SCREEN BLOOD TB SCREEN Lab Routine Screening-pulmonary TB Expected: 01/06/2025 (Approximate), Expires: 10/06/2025 [facility] Comment on above: Expected: 01/06/2025 (Approximate), Expi res: 10/06/2025 Start: 01-06-2025 End: 10-06-2025 C reactive protein [Mass/volume] in Serum or Plasma C-REACTIVE PROTEIN Lab Routine Elevated sed rate Elevated C-reactive protein (CRP) Expected: 01/06/2025 (Approximate), Expires: 10/06/2025 [facility] Comment on above: Expected: 01/06/2025 (Approximate), Expi res: 10/06/2025 Start: 01-06-2025 End: 10-06-2025 CBC panel - Blood by Automated count COMPLETE BLOOD COUNT Lab Routine Anemia of chronic disease Expected: 01/06/2025 (Approximate), Expires: 10/06/2025 [facility] Comment on above: Expected: 01/06/2025 (Approximate), Expi res: 10/06/2025 Start: 01-06-2025 End: 10-06-2025 Chronic hepatitis differentiation between hepatitis B and C virus panel - Serum or Plasma HEP REMOTE PANEL BL Lab Routine Elevated LFTs Expected: 01/06/2025 (Approximate), Expires: 10/06/2025 [facility] Comment on above: Expected: 01/06/2025 (Approximate), Expi res: 10/06/2025 Start: 01-06-2025 End: 10-06-2025 Cobalamin (Vitamin B12) [Mass/volume] in Serum or Plasma VITAMIN B12 Lab Routine Vitamin B12 deficiency Expected: 01/06/2025 (Approximate), Expires: 10/06/2025 [facility] Comment on above: Expected: 01/06/2025 (Approximate), Expi res: 10/06/2025 Start: 01-06-2025 End: 10-06-2025 Comprehensive metabolic 2000 panel - Serum or Plasma COMPREHENSIVE METABOLIC PANEL Lab Routine Elevated LFTs Expected: 01/06/2025 (Approximate), Expires: 10/06/2025 [facility] Work Phone: Comment on above: Expected: 01/06/2025 (Approximate), Expi res: 10/06/2025 Start: 01-06-2025 End: 10-06-2025 Erythrocyte sedimentation rate SEDIMENTATION RATE, WESTERGREN Lab Routine Elevated sed rate Elevated C-reactive protein (CRP) Expected: 01/06/2025 (Approximate), Expires: 10/06/2025 [facility] Comment on above: Expected: 01/06/2025 (Approximate), Expi res: 10/06/2025 Start: 12-27-2024 End: 12-27-2024 ambulatory 12/27/2024 9:00 AM EDT Infusion Center Hematology/Oncology [address] [place] [address] [place] [address] IVIG q4 weeks Hematology/Oncology Comment on above: IVIG q4 weeks Start: 12-14-2024 End: 12-14-2024 ambulatory 12/14/2024 2:00 PM EDT Infusion Center Hematology/Oncology [address] [place] [address] [place] [address] [facility] - Hematology/Oncology Comment on above: [facility] - Start: 11-29-2024 End: 11-29-2024 ambulatory Hematology/Oncology Comment on above: 3 mo F/U-IVIG(slow infusion per pt reque st/B12 +/-IV iron lab Start: 11-29-2024 End: 11-29-2024 Patient encounter procedure 11/29/2024 8:45 AM EDT Office Visit [facility] [address] [place] [address] [place] [address] 3 mo F/U-IVIG(slow infusion per pt request/B12 +/-IV iron lab [facility] Comment on above: 3 mo F/U-IVIG(slow infusion per pt reque st/B12 +/-IV iron lab Start: 11-20-2024 End: 02-19-2025 CBC W Auto Differential panel - Blood COMPLETE BLOOD COUNT AND DIFFERENTIAL Lab Routine Hypogammaglobulinemia (HCC) Expected: 11/20/2024, Expires: 02/19/2025 [facility] Work Phone: Comment on above: Expected: 11/20/2024, Expires: Start: 11-20-2024 End: 02-19-2025 Cobalamin (Vitamin B12) [Mass/volume] in Serum or Plasma VITAMIN B12 Lab Routine Hypogammaglobulinemia (HCC) Expected: 11/20/2024, Expires: 02/19/2025 [facility] Comment on above: Expected: 11/20/2024, Expires: Start: 11-20-2024 End: 02-19-2025 Comprehensive metabolic 2000 panel - Serum or Plasma COMPREHENSIVE METABOLIC PANEL Lab Routine Hypogammaglobulinemia (HCC) Expected: 11/20/2024, Expires: 02/19/2025 [facility] Comment on above: Expected: 11/20/2024, Expires: Start: 11-20-2024 End: 02-19-2025 Ferritin [Mass/volume] in Serum or Plasma FERRITIN Lab Routine Hypogammaglobulinemia (HCC) Expected: 11/20/2024, Expires: 02/19/2025 [facility] Comment on above: Expected: 11/20/2024, Expires: Start: 11-20-2024 End: 02-19-2025 Folate [Mass/volume] in Serum or Plasma FOLATE, SERUM Lab Routine Hypogammaglobulinemia (HCC) Expected: 11/20/2024, Expires: 02/19/2025 [facility] Comment on above: Expected: 11/20/2024, Expires: Start: 11-20-2024 End: 02-19-2025 IMMUNOGLOBULINS,IGG,IGA,IG M IMMUNOGLOBULINS,IGG,IGA,IG M Lab Routine Hypogammaglobulinemia (HCC) Expected: 11/20/2024, Expires: 02/19/2025 [facility] Comment on above: Expected: 11/20/2024, Expires: Start: 11-20-2024 Influenza vaccination Influenza Vaccine (#1) [facility] Comment on above: Postponed from 01/23/2024 (Patient Refus ed) Start: 11-20-2024 End: 02-19-2025 Iron and Iron binding capacity panel - Serum or Plasma IRON AND TIBC Lab Routine Hypogammaglobulinemia (HCC) Expected: 11/20/2024, Expires: 02/19/2025 [facility] Comment on above: Expected: 11/20/2024, Expires: Start: 11-16-2024 End: 11-16-2024 ambulatory 11/16/2024 2:00 PM EDT Infusion Center Hematology/Oncology [address] [place] [address] [facility] - Hematology/Oncology Comment on above: [facility] - Start: 11-01-2024 End: 11-01-2024 ambulatory 11/01/2024 9:00 AM EDT Infusion Center Hematology/Oncology [address] [place] [address] IVIG q 4 weeks with B 12 inj and lab Hematology/Oncology Comment on above: IVIG q 4 weeks with B 12 inj and lab Start: 10-31-2024 End: 10-31-2024 ambulatory 10/31/2024 9:00 AM EDT Infusion Center Hematology/Oncology [address] [place] [address] IVIG q 4 weeks with B 12 inj and lab Hematology/Oncology Comment on above: IVIG q 4 weeks with B 12 inj and lab Start: 10-19-2024 End: 10-19-2024 ambulatory 10/19/2024 2:00 PM EDT Infusion Center Hematology/Oncology [address] [place] [address] [facility] - IVIG AND [facility] AT LEAST 1 DAY APART FOR FUTURE APPTS Hematology/Oncology Comment on above: BENLYSTA - IVIG AND BENLY[facility] AT LEAST 1 DAY APART FOR FUTURE APPTS Start: 10-18-2024 End: 10-18-2024 Specialty Pharmacy 10/18/2024 10:00 AM EDT Specialty Pharmacy [id number] [place] [address] Pharmacist, [facility] [address] [place] [address] [place] [address] REFILL- [facility]- PAx 02/11/25- - mult call attempts [facility] Comment on above: REFILL- Benlysta- PAx 02/11/25- - mult call attempts Start: 10-07-2024 End: 10-07-2024 Follow-up encounter 10/07/2024 8:00 AM EDT [facility] [id number] [address] Lynne Ni MD [address] [place] [place] [address] follow up visit Rheumatology Comment on above: follow up visit Start: 10-06-2024 End: 07-09-2025 25-hydroxyvitamin D3 [Mass/volume] in Serum or Plasma VITAMIN D 25 HYDROXY Lab Routine Vitamin D deficiency Expected: 10/06/2024 (Approximate), Expires: 07/09/2025 [facility] Comment on above: Expected: 10/06/2024 (Approximate), Expi res: 07/09/2025 Start: 10-06-2024 End: 07-09-2025 C reactive protein [Mass/volume] in Serum or Plasma C-REACTIVE PROTEIN Lab Routine Elevated sed rate Elevated C-reactive protein (CRP) Expected: 10/06/2024 (Approximate), Expires: 07/09/2025 [facility] Comment on above: Expected: 10/06/2024 (Approximate), Expi res: 07/09/2025 Start: 10-06-2024 End: 07-09-2025 CBC panel - Blood by Automated count COMPLETE BLOOD COUNT Lab Routine Anemia of chronic disease Expected: 10/06/2024 (Approximate), Expires: 07/09/2025 [facility] Comment on above: Expected: 10/06/2024 (Approximate), Expi res: 07/09/2025 Start: 10-06-2024 End: 07-09-2025 Comprehensive metabolic 2000 panel - Serum or Plasma COMPREHENSIVE METABOLIC PANEL Lab Routine Elevated LFTs Expected: 10/06/2024 (Approximate), Expires: 07/09/2025 [facility] Work Phone: Comment on above: Expected: 10/06/2024 (Approximate), Expi res: 07/09/2025 Start: 10-06-2024 End: 07-09-2025 Erythrocyte sedimentation rate SEDIMENTATION RATE, WESTERGREN Lab Routine Elevated sed rate Elevated C-reactive protein (CRP) Expected: 10/06/2024 (Approximate), Expires: 07/09/2025 [facility] Comment on above: Expected: 10/06/2024 [...] 10/02/2024 9:00 AM EDT Infusion Center Hematology/Oncology [address] [place] [address] [place] [address] IVIG q 4 weeks with B 12 inj and lab Hematology/Oncology Comment on above: IVIG q 4 weeks with B 12 inj and lab Start: 09-28-2024 End: 09-28-2024 Specialty Pharmacy 09/28/2024 10:00 AM EDT Specialty Pharmacy [facility] [address] [place] [address] Pharmacist, [facility] [address] [place] [address] [place] [address] REFILL- Benlysta- PAx 02/11/25- - LVM 09/20, 09/25 [facility] Comment on above: REFILL- Benlysta- PAx 02/11/25- thursdays - LVM 09/20, 09/25 Start: 09-25-2024 End: 09-25-2024 Specialty Pharmacy 09/25/2024 10:15 AM EDT [facility]ty [facility] [facility] [address] [place], [place] [id number] Pharmacist, [facility] [address] [place] [address] [address] [place] [id number] REFILL- Benlysta- PAx 02/11/25- thurs - LVM 09/20 [facility] Comment on above: REFILL- Benlysta- PAx 02/11/25 - LVM 09/20 Start: 09-20-2024 End: 09-20-2024 Specialty Pharmacy 09/20/2024 10:15 AM EDT Specialty Pharmacy [facility] [address] [place] [address] [id number] [place] [address] Pharmacist, [facility] [address] [place] [address] [place] [address] REFILL- Benlysta- PAx 02/11/25- - pend new [...] 9:30 AM EDT Infusion Center Hematology/Oncology [address] [facility] [place] [address] 3 mo F/U-IVIG(slow infusion per pt request/B12 +/-IV iron Hematology/Oncology Comment on above: 3 mo F/U-IVIG(slow infusion per pt reque st/B12 +/-IV iron Start: 09-06-2024 End: 09-06-2024 Follow-up encounter Hematology/Oncology Comment on above: 3 month follow up IVIG for hypogammaglob ulinemia + b12 Start: 09-06-2024 End: 09-06-2024 Patient encounter procedure 09/06/2024 8:45 AM EDT Office Visit [facility] [address] [place] [address] 3 month follow up IVIG for hypogammaglobulinemia + b12 [facility] Comment on above: 3 month follow up IVIG for hypogammaglob ulinemia + b12 Start: 09-05-2024 End: 09-05-2024 Follow-up encounter Hematology/Oncology Comment on above: 3 month follow up IVIG for hypogammaglob ulinemia + b12 Start: 09-05-2024 End: 09-05-2024 Patient encounter procedure 09/05/2024 8:45 AM EDT Office Visit [facility] [address] [place] [address] 3 month follow up IVIG for hypogammaglobulinemia + b12 [facility] Comment on above: 3 month follow up IVIG for hypogammaglob ulinemia + b12 Start: 09-04-2024 End: 09-04-2024 Patient encounter procedure 09/04/2024 3:20 PM EDT Office Visit MABLE SANTO [address] [facility] [address] [place] [phone] Gordo Barfield MD [address] [facility] 130 [place] [address] Arrived [facility] SANT[facility] Comment on above: Arrived Start: 08-28-2024 End: 11-27-2024 CBC W Auto Differential panel - Blood COMPLETE BLOOD COUNT AND DIFFERENTIAL Lab Routine Vitamin B12 deficiency Other iron deficiency anemia Hypogammaglobulinemia (HCC) Expected: 08/28/2024, Expires: 11/27/2024 [facility] Work Phone: Comment on above: Expected: 08/28/2024, Expires: Start: 08-28-2024 End: 11-27-2024 Cobalamin (Vitamin B12) [Mass/volume] in Serum or Plasma VITAMIN B12 Lab Routine Vitamin B12 deficiency Other iron deficiency anemia Hypogammaglobulinemia (HCC) Expected: 08/28/2024, Expires: 11/27/2024 [facility] Comment on above: Expected: 08/28/2024, Expires: Start: 08-28-2024 End: 11-27-2024 Comprehensive metabolic 2000 panel - Serum or Plasma COMPREHENSIVE METABOLIC PANEL Lab Routine Vitamin B12 deficiency Other iron deficiency anemia Hypogammaglobulinemia (HCC) Expected: 08/28/2024, Expires: 11/27/2024 [facility] Comment on above: Expected: 08/28/2024, Expires: Start: 08-28-2024 End: 11-27-2024 Ferritin [Mass/volume] in Serum or Plasma FERRITIN Lab Routine Vitamin B12 deficiency Other iron deficiency anemia Hypogammaglobulinemia (HCC) Expected: 08/28/2024, Expires: 11/27/2024 [facility] Comment on above: Expected: 08/28/2024, Expires: Start: 08-28-2024 End: 11-27-2024 Folate [Mass/volume] in Serum or Plasma FOLATE, SERUM Lab Routine Vitamin B12 deficiency Other iron deficiency anemia Hypogammaglobulinemia (HCC) Expected: 08/28/2024, Expires: 11/27/2024 [facility] Comment on above: Expected: 08/28/2024, Expires: Start: 08-28-2024 End: 11-27-2024 IgG [Mass/volume] in Serum or Plasma IMMUNOGLOBULIN G Lab Routine Vitamin B12 deficiency Other iron deficiency anemia Hypogammaglobulinemia (HCC) Expected: 08/28/2024, Expires: 11/27/2024 [facility] Comment on above: Expected: 08/28/2024, Expires: Start: 08-28-2024 End: 11-27-2024 Iron and Iron binding capacity panel - Serum or Plasma IRON AND TIBC Lab Routine Vitamin B12 deficiency Other iron deficiency anemia Hypogammaglobulinemia (HCC) Expected: 08/28/2024, Expires: 11/27/2024 [facility] Comment on above: Expected: 08/28/2024, Expires: Start: 08-22-2024 End: 08-22-2024 Patient encounter procedure 08/22/2024 1:30 PM EDT Office Visit [facility] [address] [place] [address] Raj Kitchen MD [address] [place] [address] [facility] Start: 08-22-2024 End: 08-22-2024 Specialty Pharmacy 08/22/2024 10:15 AM EDT Specialty Pharmacy [facility] [address] [place], [place] [id number] Pharmacist, [facility] [address] [place] [address] [place] [address] REFILL- Benlysta- PAx 02/11/25 [facility] 08/17 [facility] Comment on above: REFILL- Benlysta- PAx 02/11/25 [facility] 08/17 Start: 08-17-2024 End: 08-17-2024 Specialty Pharmacy 08/17/2024 10:00 AM EDT Specialty Pharmacy [facility] [address] [place] [address] Pharmacist, [facility] [address] [place] [address] [place] [address] REFILL- Benlysta- PAx 02/11/25 [facility] Comment on above: REFILL- Benlysta- PAx 02/11/25 Start: 08-15-2024 End: 08-15-2024 Patient encounter procedure 08/15/2024 10:20 AM EDT Office Visit [facility] [address] [facility] [address] [place] [address] Gordo Barfield MD [address] [facility] 130 [place] [address] [facility] Start: 08-08-2024 End: 08-08-2024 ambulatory 08/08/2024 9:30 AM EDT Infusion Center Hematology/Oncology [address] [place] [address] [place] [address] IVIG for hypogammaglobulinemia + b12 Hematology/Oncology Comment on above: IVIG for hypogammaglobulinemia + b12 Start: 08-01-2024 End: 08-01-2024 Patient encounter procedure 08/01/2024 10:30 AM EDT Office Visit [facility] [address] [place] [phone] Bernabe English MD [address] [place] [address] [facility] Start: 07-25-2024 End: 07-25-2024 Specialty Pharmacy [facility] Comment on above: REFILL- Benlysta- PAx 02/11/25- Arrived Start: 07-20-2024 End: 07-20-2024 ambulatory 07/20/2024 11:30 AM EST [facility] Infectious Disease [address] [place] [address] Alhaji Head DO [address] [place] [address] Positive blood cultures [R78.81] Infectious Disease Comment on above: Positive blood cultures [R78.81] Start: 07-20-2024 End: 07-20-2024 Patient encounter procedure 07/20/2024 11:30 AM EST Office Visit Infectious Disease [address] [place] [address] Alhaji Head DO [address] [place] [address] Positive blood cultures [R78.81] Infectious Disease Comment on above: Positive blood cultures [R78.81] Start: 07-19-2024 [facility] Start: 07-13-2024 End: 07-13-2024 Patient encounter procedure 07/13/2024 9:20 AM EST Office Visit [place] [address] [facility] [address] [place] [phone] Lois Holm MD [address] [facility] [address] [place] [address] [facility] Start: 07-12-2024 End: 07-12-2024 Patient encounter procedure 07/12/2024 2:40 PM EST Office Visit Otolaryngology [address] [place] [address] Marky Barnes PA-C [address] [place], [place] [phone] Recurrent Thrush. Otolaryngology Comment on above: Recurrent Thrush. Start: 07-11-2024 End: 07-11-2024 ambulatory 07/11/2024 9:30 AM EST Infusion Center Hematology/Oncology [address] [place] [address] [place] [address] IVIG for hypogammaglobulinemia + b12 Hematology/Oncology Comment on above: IVIG for hypogammaglobulinemia + b12 Start: 07-03-2024 End: 04-02-2025 25-hydroxyvitamin D3 [Mass/volume] in Serum or Plasma VITAMIN D 25 HYDROXY Lab Routine Vitamin D deficiency Expected: 07/03/2024 (Approximate), Expires: 04/02/2025 [facility] Comment on above: Expected: 07/03/2024 (Approximate), Expi res: 04/02/2025 Start: 07-03-2024 End: 04-02-2025 C reactive protein [Mass/volume] in Serum or Plasma C-REACTIVE PROTEIN Lab Routine Elevated sed rate Elevated C-reactive protein (CRP) Expected: 07/03/2024 (Approximate), Expires: 04/02/2025 [facility] Comment on above: Expected: 07/03/2024 (Approximate), Expi res: 04/02/2025 Start: 07-03-2024 End: 04-02-2025 CBC panel - Blood by Automated count COMPLETE BLOOD COUNT Lab Routine Anemia of chronic disease Expected: 07/03/2024 (Approximate), Expires: 04/02/2025 [facility] Comment on above: Expected: 07/03/2024 (Approximate), Expi res: 04/02/2025 Start: 07-03-2024 End: 04-02-2025 Comprehensive metabolic 2000 panel - Serum or Plasma COMPREHENSIVE METABOLIC PANEL Lab Routine Elevated LFTs Expected: 07/03/2024 (Approximate), Expires: 04/02/2025 [facility] Work Phone: Comment on above: Expected: 07/03/2024 (Approximate), Expi res: 04/02/2025 Start: 07-03-2024 End: 04-02-2025 Erythrocyte sedimentation rate SEDIMENTATION RATE, WESTERGREN Lab Routine Elevated sed rate Elevated C-reactive protein (CRP) Expected: 07/03/2024 (Approximate), Expires: 04/02/2025 [facility] Comment on above: Expected: 07/03/2024 (Approximate), Expi res: 04/02/2025 Start: 06-29-2024 End: 06-29-2024 Specialty Pharmacy 06/29/2024 10:00 AM EST Specialty Pharmacy [facility] [address] [facility] [facility] [facility] [id number] [place] [address] Pharmacist, [facility] [address] [place] [address] [place] [address] REFILL- Benlysta- PAx 02/11/25 [facility] Comment on above: REFILL- Benlysta- PAx 02/11/25 Start: 06-26-2024 End: 06-26-2024 Nursing evaluation of patient and report 06/26/2024 9:45 AM EST Nurse Visit Hematology/Oncology [address] [place] [address] Cele Marshall Nurse Dre [address] [place] [address] B12 Hematology/Oncology Comment on above: B12 Start: 06-26-2024 End: 06-26-2024 ambulatory Hematology/Oncology Comment on above: RTC 3 month IVIG for hypogammagl obulinemia Start: 06-26-2024 End: 06-26-2024 Patient encounter procedure 06/26/2024 8:45 AM EST Office Visit [facility] [address] [place] [address] labs [facility] Comment on above: labs Start: 06-14-2024 End: 06-14-2024 Nursing evaluation of patient and report [facility] Comment on above: Abdominal Pain/Diarrhea/Bandar S HOME HEALTH NURSE LICENSED PRACTICAL order ed/Patient has prep thru MyChart//cc SIBO - Abdominal Gus n/Diarrhea/Bandar S HOME HEALTH NURSE LICENSED PRACTICAL ordered/Patient has prep thru MyChart//cc Order in Scanned Documents Start: 06-13-2024 End: 09-12-2024 Cobalamin (Vitamin B12) [Mass/volume] in Serum or Plasma [facility] Comment on above: Expected: 06/13/2024, Expires: Start: 06-13-2024 End: 09-12-2024 Ferritin [Mass/volume] in Serum or Plasma [facility] Work Phone: Comment on above: Expected: 06/13/2024, Expires: Start: 06-13-2024 End: 09-12-2024 Folate [Mass/volume] in Serum or Plasma [facility] Comment on above: Expected: 06/13/2024, Expires: Start: 06-13-2024 End: 09-12-2024 Iron and Iron binding capacity panel - Serum or Plasma [facility] Comment on above: Expected: 06/13/2024, Expires: Start: 06-13-2024 End: 06-13-2024 Nursing evaluation of patient and report 06/13/2024 9:45 AM EST Nurse Visit Hematology/Oncology [address] [place] [address] Cele Marshall Nurse Dre [address] [place] [address] B12 Hematology/Oncology Comment on above: B12 Start: 06-13-2024 End: 06-13-2024 ambulatory Hematology/Oncology Comment on above: RTC 3 month IVIG for hypogammagl obulinemia Start: 06-13-2024 End: 06-13-2024 Patient encounter procedure 06/13/2024 8:45 AM EST Office Visit [facility] [address] [place] [address] labs [facility] Comment on above: labs [...] 05/29/2024 9:30 AM EST Nurse Visit Hematology/Oncology [address] [place] [address] [place] [address] Joanna Fl Nurse Dre [address] [place] [address] B12 Hematology/Oncology Comment on above: B12 Start: 05-19-2024 End: 05-19-2024 ambulatory 05/19/2024 9:30 AM EST Infusion Center Hematology/Oncology [address] [place] [address] [place] [address] IVIG for hypogammaglobulinemia Hematology/Oncology Comment on above: IVIG for hypogammaglobulinemia Start: 05-12-2024 End: 05-12-2024 Specialty Pharmacy 05/12/2024 10:00 AM EST Specialty Pharmacy [facility] [address] [place] [id number] [place] [address] Pharmacist, [facility] [address] [place] [address] [address] [place], [place] [id number] REFILL- Benlysta- PAx 02/11/25 [facility] Comment on above: REFILL- Benlysta- PAx 02/11/25 Start: 04-28-2024 End: 04-28-2025 US.doppler Extremity arteries - bilateral for physiologic artery study Vas art doppler lwr bilat mult lev/PVR Vascular Ultrasound Routine Peripheral vascular disease, unspecified ([facility]) Cold extremities Systemic lupus erythematosus ([facility]) Expected: 04/28/2024, Expires: 04/28/2025 [facility] Work Phone: Comment on above: Expected: 04/28/2024, Expires: Start: 04-24-2024 End: 04-24-2024 Nursing evaluation of patient and report 04/24/2024 9:30 AM EST Nurse Visit Hematology/Oncology [address] [place] [address] Joanna Fl Nurse Dre [address] [place] [address] B12 Hematology/Oncology Comment on above: B12 Start: 04-18-2024 End: 04-18-2024 Nursing evaluation of patient and report [facility] Comment on above: [...] lower extremity, unspecified laterality Systemic lupus erythematosus ([facility]) Expected: 04/06/2024, Expires: 2025 [facility] Work Phone: Comment on above: Expected: 04/06/2024, Expires: Start: 03-28-2024 End: 03-28-2024 ambulatory 03/28/2024 1:00 PM EST [facility] Hematology/Oncology [address] [place] [address] Vera Najera MD [address] [place] [address] 13 wk virtual after labs last week Hematology/Oncology Comment on above: 13 wk virtual after labs last week Start: 03-23-2024 End: 03-23-2025 aPTT in Blood by Coagulation assay APTT Lab Routine Menorrhagia with regular cycle Expected: 03/23/2024 (Approximate), Expires: 03/23/2025 [facility] Comment on above: Expected: 03/23/2024 (Approximate), Expi res: 03/23/2025 Start: 03-23-2024 End: 03-23-2025 US for US PELVIS-TRANSVAG IF INDICATED Imaging Routine Menorrhagia with regular cycle Expected: 03/23/2024 (Approximate), Expires: 03/23/2025 [facility] Comment on above: Expected: 03/23/2024 (Approximate), Expi res: 03/23/2025 Start: 03-21-2024 End: 03-21-2024 Nursing evaluation of patient and report 03/21/2024 11:45 AM EDT Nurse Visit Hematology/Oncology [address] [place] [address] Cele Marshall Nurse Dre [address] [place] [address] b12 Hematology/Oncology Comment on above: b12 Start: 03-21-2024 End: 03-21-2024 Patient encounter procedure 03/21/2024 11:15 AM EDT Office Visit [facility] [address] [place] [address] LAb [facility] Comment on above: LAb Start: 03-20-2024 End: 12-29-2024 25-hydroxyvitamin D3 [Mass/volume] in Serum or Plasma VITAMIN D 25 HYDROXY Lab Routine Vitamin D deficiency Expected: 03/20/2024 (Approximate), Expires: 12/29/2024 [facility] Comment on above: Expected: 03/20/2024 (Approximate), Expi res: 12/29/2024 Start: 03-20-2024 End: 12-29-2024 BLOOD TB SCREEN BLOOD TB SCREEN Lab Routine Screening-pulmonary TB Expected: 03/20/2024 (Approximate), Expires: 12/29/2024 [facility] Comment on above: Expected: 03/20/2024 (Approximate), Expi res: 12/29/2024 Start: 03-20-2024 End: 12-29-2024 C reactive protein [Mass/volume] in Serum or Plasma C-REACTIVE PROTEIN Lab Routine Elevated C-reactive protein (CRP) Elevated sed rate Expected: 03/20/2024 (Approximate), Expires: 12/29/2024 [facility] Comment on above: Expected: 03/20/2024 (Approximate), Expi res: 12/29/2024 Start: 03-20-2024 End: 06-19-2024 CBC W Auto Differential panel - Blood COMPLETE BLOOD COUNT AND DIFFERENTIAL Lab Routine Megaloblastic anemia due to vitamin B12 deficiency Elevated sed rate Obstructive sleep apnea syndrome Expected: 03/20/2024 (Approximate), Expires: 06/19/2024 [facility] Comment on above: Expected: 03/20/2024 (Approximate), Expi res: 06/19/2024 Start: 03-20-2024 End: 06-19-2024 Cobalamin (Vitamin B12) [Mass/volume] in Serum or Plasma VITAMIN B12 Lab Routine Megaloblastic anemia due to vitamin B12 deficiency Elevated sed rate Obstructive sleep apnea syndrome Expected: 03/20/2024 (Approximate), Expires: 06/19/2024 [facility] Comment on above: Expected: 03/20/2024 (Approximate), Expi res: 06/19/2024 Start: 03-20-2024 End: 06-19-2024 Comprehensive metabolic 2000 panel - Serum or Plasma COMPREHENSIVE METABOLIC PANEL Lab Routine Megaloblastic anemia due to vitamin B12 deficiency Elevated sed rate Obstructive sleep apnea syndrome Expected: 03/20/2024 (Approximate), Expires: 06/19/2024 [facility] Work Phone: Comment on above: Expected: 03/20/2024 (Approximate), Expi res: 06/19/2024 Start: 03-20-2024 End: 12-29-2024 Erythrocyte sedimentation rate SEDIMENTATION RATE, WESTERGREN Lab Routine Elevated C-reactive protein (CRP) Elevated sed rate Expected: 03/20/2024 (Approximate), Expires: 12/29/2024 [facility] Work Phone: Comment on above: Expected: 03/20/2024 (Approximate), Expi res: 12/29/2024 Start: 03-20-2024 End: 06-19-2024 Ferritin [Mass/volume] in Serum or Plasma FERRITIN Lab Routine Megaloblastic anemia due to vitamin B12 deficiency Elevated sed rate Obstructive sleep apnea syndrome Expected: 03/20/2024 (Approximate), Expires: 06/19/2024 [facility] Comment on above: Expected: 03/20/2024 (Approximate), Expi res: 06/19/2024 Start: 03-20-2024 End: 06-19-2024 Folate [Mass/volume] in Serum or Plasma FOLATE, SERUM Lab Routine Megaloblastic anemia due to vitamin B12 deficiency Elevated sed rate Obstructive sleep apnea syndrome Expected: 03/20/2024 (Approximate), Expires: 06/19/2024 [facility] Comment on above: Expected: 03/20/2024 (Approximate), Expi res: 06/19/2024 Start: 03-20-2024 End: 06-19-2024 IMMUNOGLOBULINS,IGG,IGA,IG M IMMUNOGLOBULINS,IGG,IGA,IG M Lab Routine Megaloblastic anemia due to vitamin B12 deficiency Elevated sed rate Obstructive sleep apnea syndrome Expected: 03/20/2024 (Approximate), Expires: 06/19/2024 [facility] Comment on above: Expected: 03/20/2024 (Approximate), Expi res: 06/19/2024 Start: 03-20-2024 End: 06-19-2024 Iron and Iron binding capacity panel - Serum or Plasma IRON AND TIBC Lab Routine Megaloblastic anemia due to vitamin B12 deficiency Elevated sed rate Obstructive sleep apnea syndrome Expected: 03/20/2024 (Approximate), Expires: 06/19/2024 [facility] Comment on above: Expected: 03/20/2024 (Approximate), Expi res: 06/19/2024 Start: 03-18-2024 End: 03-18-2024 Patient encounter procedure 03/18/2024 9:00 AM EDT [facility] Rheumatology [address] [place] [address] Lynne Ni MD [address] [address] [facility] [address] May offer 03/18/24 Sat REJ 4th floor in person/virtual/phone for lupus Rheumatology Comment on above: May offer 03/18/24 Sat REJ 4th floor in person/virtual/phone for lupus Start: 03-16-2024 Patient referral [facility] Work Phone: Start: 03-16-2024 End: 05-16-2025 US Breast - bilateral Bilateral breast US complete Imaging Routine Nipple discharge Expected: 03/16/2024, Expires: 05/16/2025 [facility] Work Phone: Comment on [...] 11:45 AM EDT Nurse Visit Hematology/Oncology [address] [facility] [place] [address] Cele Marshall Nurse Dre [address] [place] [address] b12 Hematology/Oncology Comment on above: b12 Start: 02-22-2024 End: 02-22-2024 Patient encounter procedure 02/22/2024 11:15 AM EDT Office Visit [facility] [address] [place] [address] LAb [facility] Comment on above: LAb Start: 02-21-2024 End: 02-21-2024 Nursing evaluation of patient and report 02/21/2024 10:45 AM EDT Nurse Visit Hematology/Oncology [address] [place] [address] Cele Marshall Nurse Dre [address] [place] [address] b12 Hematology/Oncology Comment on above: b12 Start: 02-21-2024 End: 02-21-2024 Patient encounter procedure 02/21/2024 10:30 AM EDT Office Visit [facility] [address] [place] [address] LAb [facility] Comment on above: LAb Start: 02-16-2024 [facility] Start: 02-14-2024 End: 02-14-2024 Follow-up encounter Neurology Comment on above: Cpap follow up REFILL- Benlysta- PA x 02/04/24- NCA 09/2024-, ND 02/23 Start: 02-09-2024 End: 02-09-2024 Patient encounter procedure 02/09/2024 8:00 AM EDT Office Visit [facility] [address] [place] [phone] Zita Cuellar, LAB CLERK [address] [place] [address] [facility] 210 Start: 01-27-2024 End: 04-27-2024 Bacteria identified in Blood by Culture BLOOD CULTURE Microbiology Routine Pseudomonas infection Expected: 01/27/2024, Expires: 04/27/2024 [facility] Work Phone: Comment on above: Expected: 01/27/2024, Expires: Start: 01-27-2024 End: 01-27-2024 Follow-up encounter 01/27/2024 10:00 AM EDT [facility] Infectious Disease [address] [place] [address] Alhaji Head DO [address] [place] [address] follow up Infectious Disease Comment on above: follow up Start: 01-25-2024 End: 01-25-2024 Nursing evaluation of patient and report Hematology/Oncology Comment on above: b12 B12(change date) Start: 01-25-2024 End: 01-25-2024 Patient encounter procedure [facility] Comment on above: LAb NO LAB ORDERS LAb Start: 01-24-2024 Influenza vaccination Influenza Vaccine (#1) [facility] Comment on above: Postponed from 01/22/2023 (Patient Refus ed) Start: 01-23-2024 Covid-19 Vaccine ( season) Covid-19 Vaccine ( season) [facility] Start: 01-23-2024 Covid-19 Vaccine ( season) Covid-19 Vaccine ( season) [facility] Start: 01-23-2024 Influenza vaccination [facility] Start: 01-20-2024 End: 01-20-2024 Specialty Pharmacy [facility] Comment on above: refill - benlysta- NCA 09/2024-- pa exp: 02/04/24- 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 Start: 12-27-2023 End: 12-27-2023 Nursing evaluation of patient and report 12/27/2023 12:00 PM EDT Nurse Visit Hematology/Oncology [address] [place] [address] Cele Marshall Nurse Dre [address] [place] [address] b12 Hematology/Oncology Comment on above: b12 Start: 12-27-2023 End: 12-27-2023 Follow-up encounter 12/27/2023 11:30 AM EDT Visit (SP) Office Hematology/Oncology [address] [place] [address] Neda Hill, PA-C [address] [place] [address] 13 week follow up, labs 1 week before Hematology/Oncology Comment on above: 13 week follow up, labs 1 week before Start: 12-27-2023 End: 12-27-2023 Patient encounter procedure 12/27/2023 11:15 AM EDT Office Visit [facility] [address] [place] [address] LAb [facility] Comment on above: LAb Start: 12-13-2023 End: 12-13-2023 Specialty Pharmacy 12/13/2023 10:00 AM EDT Specialty Pharmacy [id number] [place] [address] Pharmacist, [facility] [address] [place] [address] [place] [address] refill - benlysta- NCA - pa exp: 02/04/24- [facility] Comment on above: refill - benlysta- NCA - pa exp: 02/04/24- Start: 12-10-2023 End: 12-10-2023 Follow-up encounter 12/10/2023 10:45 AM EDT Visit (SP) Office Hematology/Oncology [address] [place] [address] Vera Najera MD [address] [place] [address] 13 week follow up, labs 1 week before Hematology/Oncology Comment on above: 13 week follow up, labs 1 week before Start: 12-04-2023 End: 09-03-2024 25-hydroxyvitamin D3 [Mass/volume] in Serum or Plasma VITAMIN D 25 HYDROXY Lab Routine Vitamin D deficiency Expected: 12/04/2023 (Approximate), Expires: 09/03/2024 [facility] Work Phone: Comment on above: Expected: 12/04/2023 (Approximate), Expi res: 09/03/2024 Start: 12-04-2023 End: 09-03-2024 C reactive protein [Mass/volume] in Serum or Plasma C-REACTIVE PROTEIN Lab Routine Elevated sed rate Elevated C-reactive protein (CRP) Expected: 12/04/2023 (Approximate), Expires: 09/03/2024 [facility] Work Phone: Comment on above: Expected: 12/04/2023 (Approximate), Expi res: 09/03/2024 Start: 12-04-2023 End: 09-03-2024 CBC panel - Blood by Automated count COMPLETE BLOOD COUNT Lab Routine Anemia of chronic disease Expected: 12/04/2023 (Approximate), Expires: 09/03/2024 [facility] Work Phone: Comment on above: Expected: 12/04/2023 (Approximate), Expi res: 09/03/2024 Start: 12-04-2023 End: 09-03-2024 Comprehensive metabolic 2000 panel - Serum or Plasma COMPREHENSIVE METABOLIC PANEL Lab Routine Elevated LFTs Expected: 12/04/2023 (Approximate), Expires: 09/03/2024 [facility] Work Phone: Comment on above: Expected: 12/04/2023 (Approximate), Expi res: 09/03/2024 Start: 12-04-2023 End: 09-03-2024 Erythrocyte sedimentation rate SEDIMENTATION RATE, WESTERGREN Lab Routine Elevated sed rate Elevated C-reactive protein (CRP) Expected: 12/04/2023 (Approximate), Expires: 09/03/2024 [facility] Work Phone: Comment on above: Expected: 12/04/2023 (Approximate), Expi res: 09/03/2024 Start: 12-03-2023 End: 12-03-2023 Nursing evaluation of patient and report 12/03/2023 11:00 AM EDT Nurse Visit Hematology/Oncology [address] [place] [address] Cele Marshall Nurse Dre [address] [place] [address] b12 Hematology/Oncology Comment on above: b12 Start: 12-03-2023 End: 12-03-2023 Patient encounter procedure 12/03/2023 10:45 AM EDT Office Visit [facility] [address] [place] [address] [place] [address] lab [facility] Comment on above: lab Start: 12-02-2023 End: 09-08-2024 CBC W Auto Differential panel - Blood COMPLETE BLOOD COUNT AND DIFFERENTIAL Lab Routine Megaloblastic anemia due to vitamin B12 deficiency High total serum IgM Expected: 12/02/2023 (Approximate), Expires: 09/08/2024 [facility] Work Phone: Comment on above: Expected: 12/02/2023 (Approximate), Expi res: 09/08/2024 Start: 12-02-2023 End: 09-08-2024 Cobalamin (Vitamin B12) [Mass/volume] in Serum or Plasma VITAMIN B12 Lab Routine Megaloblastic anemia due to vitamin B12 deficiency High total serum IgM Expected: 12/02/2023 (Approximate), Expires: 09/08/2024 [facility] Work Phone: Comment on above: Expected: 12/02/2023 (Approximate), Expi res: 09/08/2024 Start: 12-02-2023 End: 09-08-2024 Comprehensive metabolic 2000 panel - Serum or Plasma COMPREHENSIVE METABOLIC PANEL Lab Routine Megaloblastic anemia due to vitamin B12 deficiency High total serum IgM Expected: 12/02/2023 (Approximate), Expires: 09/08/2024 [facility] Work Phone: Comment on above: Expected: 12/02/2023 (Approximate), Expi res: 09/08/2024 Start: 12-02-2023 End: 03-02-2024 Erythrocyte sedimentation rate SEDIMENTATION RATE, WESTERGREN Lab Routine Megaloblastic anemia due to vitamin B12 deficiency High total serum IgM Expected: 12/02/2023 (Approximate), Expires: 03/02/2024 [facility] Work Phone: Comment on above: Expected: 12/02/2023 (Approximate), Expi res: 03/02/2024 Start: 12-02-2023 End: 09-08-2024 Ferritin [Mass/volume] in Serum or Plasma FERRITIN Lab Routine Megaloblastic anemia due to vitamin B12 deficiency High total serum IgM Expected: 12/02/2023 (Approximate), Expires: 09/08/2024 [facility] Work Phone: Comment on above: Expected: 12/02/2023 (Approximate), Expi res: 09/08/2024 Start: 12-02-2023 End: 09-08-2024 Folate [Mass/volume] in Serum or Plasma FOLATE, SERUM Lab Routine Megaloblastic anemia due to vitamin B12 deficiency High total serum IgM Expected: 12/02/2023 (Approximate), Expires: 09/08/2024 [facility] Work Phone: Comment on above: Expected: 12/02/2023 (Approximate), Expi res: 09/08/2024 Start: 12-02-2023 End: 03-02-2024 IgA [Mass/volume] in Serum or Plasma IMMUNOGLOBULIN A Lab Routine Megaloblastic anemia due to vitamin B12 deficiency High total serum IgM Expected: 12/02/2023 (Approximate), Expires: 03/02/2024 [facility] Work Phone: Comment on above: Expected: 12/02/2023 (Approximate), Expi res: 03/02/2024 Start: 12-02-2023 End: 03-02-2024 IgE [Units/volume] in Serum or Plasma IMMUNOGLOBULIN E Lab Routine Megaloblastic anemia due to vitamin B12 deficiency High total serum IgM Expected: 12/02/2023 (Approximate), Expires: 03/02/2024 [facility] Work Phone: Comment on above: Expected: 12/02/2023 (Approximate), Expi res: 03/02/2024 Start: 12-02-2023 End: 03-02-2024 IgG [Mass/volume] in Serum or Plasma IMMUNOGLOBULIN G Lab Routine Megaloblastic anemia due to vitamin B12 deficiency High total serum IgM Expected: 12/02/2023 (Approximate), Expires: 03/02/2024 [facility] Work Phone: Comment on above: Expected: 12/02/2023 (Approximate), Expi res: 03/02/2024 Start: 12-02-2023 End: 03-02-2024 IgM [Mass/volume] in Serum or Plasma IMMUNOGLOBULIN M Lab Routine Megaloblastic anemia due to vitamin B12 deficiency High total serum IgM Expected: 12/02/2023 (Approximate), Expires: 03/02/2024 [facility] Work Phone: Comment on above: Expected: 12/02/2023 (Approximate), Expi res: 03/02/2024 Start: 12-02-2023 End: 09-08-2024 Iron and Iron binding capacity panel - Serum or Plasma IRON AND TIBC Lab Routine Megaloblastic anemia due to vitamin B12 deficiency High total serum IgM Expected: 12/02/2023 (Approximate), Expires: 09/08/2024 [facility] Work Phone: Comment on above: Expected: 12/02/2023 (Approximate), Expi res: 09/08/2024 Start: 11-29-2023 End: 11-29-2023 Nursing evaluation of patient and report 11/29/2023 2:15 PM EDT Nurse Visit Hematology/Oncology [address] [place] [address] Cele Marshall Nurse Dre [address] [place] [address] b12 Hematology/Oncology Comment on above: b12 Start: 11-15-2023 End: 11-15-2023 Specialty Pharmacy 11/15/2023 10:00 AM EDT Specialty Pharmacy [facility] [address] [place] [address] Drive [id number] [place] [address] Pharmacist, [facility] [address] [place] [address] [place] [address] refill - [email or web address]- NCA 09/2024-- pa exp: 02/04/24- [facility] Comment on above: refill - benlysta- NCA 09/2024-- pa exp: 02/04/24- Start: 10-29-2023 End: 10-29-2023 Nursing evaluation of patient and report 10/29/2023 11:00 AM EDT Nurse Visit Hematology/Oncology [address] [place] [address] Cele Marshall Nurse Dre [address] [place] [address] b12 Hematology/Oncology Comment on above: b12 Start: 10-15-2023 End: 10-15-2023 Specialty Pharmacy 10/15/2023 10:00 AM EDT Specialty Pharmacy [facility] [address] [place] [address] Pharmacist, [facility] [address] [place] [address] [address] [place] [id number] refill - benlysta-Thursdays- pa exp: 02/04/24-l/m 10/11 [facility] Comment on above: refill - benlysta-Thursdays- pa exp: 01/22 08/14-l/m 10/11 Start: 10-12-2023 End: 10-12-2023 Specialty Pharmacy 10/12/2023 10:00 AM EDT Specialty Pharmacy [facility] [address] [place], [place] [id number] Pharmacist, [facility] [address] [place] [address] [place] [address] refill - benlysta-Thursdays- pa exp: 02/04/24- [facility] Comment on above: refill - benlysta-Thursdays- pa exp: 01/22 08/14- Start: 10-05-2023 End: 10-05-2023 Patient encounter procedure 10/05/2023 8:00 AM EDT [facility] [address] [place] [address] Lynne Ni MD [address] [place] [address] 6 mo f/u for Lupus Rheumatology Comment on above: 6 mo f/u for Lupus Start: 10-01-2023 End: 10-01-2023 Nursing evaluation of patient and report 10/01/2023 11:00 AM EDT Nurse Visit Hematology/Oncology [address] [place] [address] Cele Marshall Nurse Dre [address] [place] [address] b12 Hematology/Oncology Comment on above: b12 Start: 09-16-2023 End: 09-16-2023 Specialty Pharmacy 09/16/2023 10:00 AM EDT Specialty Pharmacy [id number] [place] [address] Pharmacist, [facility] [address] [place] [address] [place], [place] [id number] refill - benlysta-Thursdays- pa exp: 02/04/24-lvm [facility] Comment on above: refill - benlysta-Thursdays- pa exp: 01/22 08/14-lvm Start: 09-13-2023 End: 09-13-2023 Patient encounter procedure 09/13/2023 9:00 AM EDT Office Visit [facility] [address] [place] [address] Kade Richardson MD [address] [facility] [address] [address] [facility] Start: 07-19-2023 End: 07-19-2023 Patient encounter procedure [facility] Start: 07-15-2023 End: 07-15-2023 Patient encounter procedure 07/15/2023 10:50 AM EST Office Visit [facility] [address] [place] [address] Bernabe English MD [address] [place] [address] [facility] Start: 07-06-2023 End: 07-06-2023 Patient encounter procedure 07/06/2023 2:30 PM EST Office Visit [facility] [address] [facility] [address] CHERY LouTh[place] [id number] Kade Richardson MD [address] [facility] [address] Chery [place] [address] [facility] 210 Start: 07-06-2023 End: 07-06-2024 Protein electrophoresis, serum Protein electrophoresis, serum Lab Routine Autoimmune disease (CMS/HCC) Autonomic dysfunction Expected: 07/06/2023 (Approximate), Expires: 07/06/2024 [facility] Work Phone: Comment on above: Expected: 07/06/2023 (Approximate), Expi res: 07/06/2024 Start: 07-06-2023 End: 07-06-2024 Protein electrophoresis, urine Protein electrophoresis, urine Lab Routine Autoimmune disease (CMS/HCC) Autonomic dysfunction Expected: 07/06/2023 (Approximate), Expires: 07/06/2024 [facility] Comment on above: Expected: 07/06/2023 (Approximate), Expi res: 07/06/2024 Start: 06-09-2023 End: 06-09-2024 Holter monitor study Holter Or Event Clinical Laboratory Director Cardiac Services Routine Irregular heart rate Expected: 06/09/2023 (Approximate), Expires: 06/09/2024 [facility] Work Phone: Comment on above: Expected: 06/09/2023 (Approximate), Expi res: 06/09/2024 Start: 06-09-2023 End: 06-09-2024 Lipid 1996 panel - Serum or Plasma Lipid Panel Lab Routine Primary hypertension Expected: 06/09/2023 (Approximate), Expires: 06/09/2024 [facility] Work Phone: Comment on above: Expected: 06/09/2023 (Approximate), Expi res: 06/09/2024 Start: 06-09-2023 End: 06-09-2024 Thyrotropin [Units/volume] in Serum or Plasma Thyroid Stimulating Hormone Lab Routine Irregular heart rate Expected: 06/09/2023 (Approximate), Expires: 06/09/2024 [facility] Work Phone: Comment on above: Expected: 06/09/2023 (Approximate), Expi res: 06/09/2024 Start: 06-09-2023 End: 06-09-2024 Thyroxine (T4) free [Mass/volume] in Serum or Plasma Thyroxine, Free Lab Routine Irregular heart rate Expected: 06/09/2023 (Approximate), Expires: 06/09/2024 [facility] Work Phone: Comment on above: Expected: 06/09/2023 (Approximate), Expi res: 06/09/2024 Start: 06-09-2023 End: 06-09-2025 Heart Transthoracic Transthoracic Echo (TTE) Complete Echocardiography Routine Irregular heart rate Obstructive sleep apnea syndrome Expected: 06/09/2023 (Approximate), Expires: 06/09/2025 [facility] Work Phone: Comment on above: Expected: 06/09/2023 (Approximate), Expi res: 06/09/2025 Start: 04-25-2023 End: 01-25-2024 25-hydroxyvitamin D3 [Mass/volume] in Serum or Plasma VITAMIN D 25 HYDROXY Lab Routine Vitamin D deficiency Expected: 04/25/2023 (Approximate), Expires: 01/25/2024 [facility] Work Phone: Comment on above: Expected: 04/25/2023 (Approximate), Expi res: 01/25/2024 Start: 04-25-2023 End: 01-25-2024 C reactive protein [Mass/volume] in Serum or Plasma C-REACTIVE PROTEIN (CRP) Lab Routine Elevated sed rate Elevated C-reactive protein (CRP) Expected: 04/25/2023 (Approximate), Expires: 01/25/2024 [facility] Work Phone: Comment on above: Expected: 04/25/2023 (Approximate), Expi res: 01/25/2024 Start: 04-25-2023 End: 01-25-2024 CBC panel - Blood by Automated count CBC Lab Routine Anemia of chronic disease Expected: 04/25/2023 (Approximate), Expires: 01/25/2024 [facility] Work Phone: Comment on above: Expected: 04/25/2023 (Approximate), Expi res: 01/25/2024 Start: 04-25-2023 End: 01-25-2024 Comprehensive metabolic 2000 panel - Serum or Plasma COMP METABOLIC PANEL Lab Routine Elevated LFTs Expected: 04/25/2023 (Approximate), Expires: 01/25/2024 [facility] Work Phone: Comment on above: Expected: 04/25/2023 (Approximate), Expi res: 01/25/2024 Start: 04-25-2023 End: 01-25-2024 Erythrocyte sedimentation rate SED RATE WESTERGREN Lab Routine Elevated sed rate Elevated C-reactive protein (CRP) Expected: 04/25/2023 (Approximate), Expires: 01/25/2024 [facility] Work Phone: Comment on above: Expected: 04/25/2023 (Approximate), Expi res: 01/25/2024 Start: 04-20-2023 COVID-19 Vaccine (4 - Pfizer risk series) COVID-19 Vaccine (4 - Pfizer risk series) [facility] Start: 04-20-2023 Covid-19 Vaccine ( season) Covid-19 Vaccine () [facility] Start: 04-20-2023 Covid-19 Vaccine ( season) Covid-19 Vaccine ( season) [facility] Start: 04-16-2023 End: 02-20-2024 CBC W Auto Differential panel - Blood CBC + DIFF Lab Routine Megaloblastic anemia due to vitamin B12 deficiency Elevated sed rate Chronic fatigue and malaise High total serum IgM JOSE RAFAEL (obstructive sleep apnea) Expected: 04/16/2023 (Approximate), Expires: 02/20/2024 [facility] Work Phone: Comment on above: Expected: 04/16/2023 (Approximate), Expi res: 02/20/2024 Start: 04-16-2023 End: 02-20-2024 Cobalamin (Vitamin B12) [Mass/volume] in Serum or Plasma VITAMIN B12 BLOOD Lab Routine Megaloblastic anemia due to vitamin B12 deficiency Elevated sed rate Chronic fatigue and malaise High total serum IgM JOSE RAFAEL (obstructive sleep apnea) Expected: 04/16/2023 (Approximate), Expires: 02/20/2024 [facility] Work Phone: Comment on above: Expected: 04/16/2023 (Approximate), Expi res: 02/20/2024 Start: 04-16-2023 End: 02-20-2024 Comprehensive metabolic 2000 panel - Serum or Plasma COMP METABOLIC PANEL Lab Routine Megaloblastic anemia due to vitamin B12 deficiency Elevated sed rate Chronic fatigue and malaise High total serum IgM JOSE RAFAEL (obstructive sleep apnea) Expected: 04/16/2023 (Approximate), Expires: 02/20/2024 [facility] Work Phone: Comment on above: Expected: 04/16/2023 (Approximate), Expi res: 02/20/2024 Start: 04-16-2023 End: 02-20-2024 Ferritin [Mass/volume] in Serum or Plasma FERRITIN BLD Lab Routine Megaloblastic anemia due to vitamin B12 deficiency Elevated sed rate Chronic fatigue and malaise High total serum IgM JOSE RAFAEL (obstructive sleep apnea) Expected: 04/16/2023 (Approximate), Expires: 02/20/2024 [facility] Work Phone: Comment on above: Expected: 04/16/2023 (Approximate), Expi res: 02/20/2024 Start: 04-16-2023 End: 02-20-2024 Folate [Mass/volume] in Serum or Plasma FOLATE SERUM Lab Routine Megaloblastic anemia due to vitamin B12 deficiency Elevated sed rate Chronic fatigue and malaise High total serum IgM JOSE RAFAEL (obstructive sleep apnea) Expected: 04/16/2023 (Approximate), Expires: 02/20/2024 [facility] Work Phone: Comment on above: Expected: 04/16/2023 (Approximate), Expi res: 02/20/2024 Start: 04-16-2023 End: 02-20-2024 Iron and Iron binding capacity panel - Serum or Plasma IRON + TIBC Lab Routine Megaloblastic anemia due to vitamin B12 deficiency Elevated sed rate Chronic fatigue and malaise High total serum IgM JOSE RAFAEL (obstructive sleep apnea) Expected: 04/16/2023 (Approximate), Expires: 02/20/2024 [facility] Work Phone: Comment on above: Expected: 04/16/2023 (Approximate), Expi res: 02/20/2024 Start: 03-23-2023 COVID-19 Vaccine (3 - Pfizer risk series) COVID-19 Vaccine (3 - Pfizer risk series) [facility] Start: 03-17-2023 Diabetes mellitus screening Diabetes Screening [facility] Start: 03-10-2023 End: 06-09-2023 Insulin [Units/volume] in Serum or Plasma INSULIN ASSAY BLOOD Lab Routine Insulin resistance, unspecified Expected: 03/10/2023, Expires: 06/09/2023 [facility] Work Phone: Comment on above: Expected: 03/10/2023, Expires: Start: 03-10-2023 End: 06-09-2023 INSULIN ANTIBODY BLD INSULIN ANTIBODY BLD Lab Routine Insulin resistance, unspecified Expected: 03/10/2023, Expires: 06/09/2023 [facility] Work Phone: Comment on above: Expected: 03/10/2023, Expires: 4 Start: 02-11-2023 End: 02-08-2024 [id number] [Mass/volume] in Serum or Plasma B2 MICROGLOBULIN B Lab Routine Megaloblastic anemia due to vitamin B12 deficiency High total serum IgM Elevated sed rate Expected: 02/11/2023 (Approximate), Expires: 02/08/2024 [facility] Work Phone: Comment on above: Expected: 02/11/2023 (Approximate), Expi res: 02/08/2024 Start: 02-11-2023 End: 02-08-2024 Calcium.ionized [Moles/volume] in Blood CALCIUM IONIZED BLOOD Lab Routine Megaloblastic anemia due to vitamin B12 deficiency High total serum IgM Elevated sed rate Expected: 02/11/2023 (Approximate), Expires: 02/08/2024 [facility] Work Phone: Comment on above: Expected: 02/11/2023 (Approximate), Expi res: 02/08/2024 Start: 02-11-2023 End: 02-08-2024 CBC W Auto Differential panel - Blood CBC + DIFF Lab Routine Megaloblastic anemia due to vitamin B12 deficiency High total serum IgM Elevated sed rate Expected: 02/11/2023 (Approximate), Expires: 02/08/2024 [facility] Work Phone: Comment on above: Expected: 02/11/2023 (Approximate), Expi res: 02/08/2024 Start: 02-11-2023 End: 02-08-2024 Cobalamin (Vitamin B12) [Mass/volume] in Serum or Plasma VITAMIN B12 BLOOD Lab Routine Megaloblastic anemia due to vitamin B12 deficiency High total serum IgM Elevated sed rate Expected: 02/11/2023 (Approximate), Expires: 02/08/2024 [facility] Work Phone: Comment on above: Expected: 02/11/2023 (Approximate), Expi res: 02/08/2024 Start: 02-11-2023 End: 02-08-2024 Comprehensive metabolic 2000 panel - Serum or Plasma COMP METABOLIC PANEL Lab Routine Megaloblastic anemia due to vitamin B12 deficiency High total serum IgM Elevated sed rate Expected: 02/11/2023 (Approximate), Expires: 02/08/2024 [facility] Work Phone: Comment on above: Expected: 02/11/2023 (Approximate), Expi res: 02/08/2024 Start: 02-11-2023 End: 02-08-2024 Ferritin [Mass/volume] in Serum or Plasma FERRITIN BLD Lab Routine Megaloblastic anemia due to vitamin B12 deficiency High total serum IgM Elevated sed rate Expected: 02/11/2023 (Approximate), Expires: 02/08/2024 [facility] Work Phone: Comment on above: Expected: 02/11/2023 (Approximate), Expi res: 02/08/2024 Start: 02-11-2023 End: 02-08-2024 Folate [Mass/volume] in Serum or Plasma FOLATE SERUM Lab Routine Megaloblastic anemia due to vitamin B12 deficiency High total serum IgM Elevated sed rate Expected: 02/11/2023 (Approximate), Expires: 02/08/2024 [facility] Work Phone: Comment on above: Expected: 02/11/2023 (Approximate), Expi res: 02/08/2024 Start: 02-11-2023 End: 02-08-2024 Iron and Iron binding capacity panel - Serum or Plasma IRON + TIBC Lab Routine Megaloblastic anemia due to vitamin B12 deficiency High total serum IgM Elevated sed rate Expected: 02/11/2023 (Approximate), Expires: 02/08/2024 [facility] Work Phone: Comment on above: Expected: 02/11/2023 (Approximate), Expi res: 02/08/2024 Start: 02-11-2023 End: 04-13-2023 KAPPA/FARMER,FREE,SER KAPPA/FARMER,FREE,SER Lab Routine Megaloblastic anemia due to vitamin B12 deficiency High total serum IgM Elevated sed rate Expected: 02/11/2023 (Approximate), Expires: 04/13/2023 [facility] Work Phone: Comment on above: Expected: 02/11/2023 (Approximate), Expi res: 04/13/2023 Start: 02-11-2023 End: 02-08-2024 Lactate dehydrogenase [Enzymatic activity/volume] in Serum or Plasma LD LACTATE DEHYDRO Lab Routine Megaloblastic anemia due to vitamin B12 deficiency High total serum IgM Elevated sed rate Expected: 02/11/2023 (Approximate), Expires: 02/08/2024 [facility] Work Phone: Comment on above: Expected: 02/11/2023 (Approximate), Expi res: 02/08/2024 Start: 02-11-2023 End: 02-08-2024 MONOCLONAL PROTEIN, SERUM (BLOOD) MONOCLONAL PROTEIN, SERUM (BLOOD) Lab Routine Megaloblastic anemia due to vitamin B12 deficiency High total serum IgM Elevated sed rate Expected: 02/11/2023 (Approximate), Expires: 02/08/2024 [facility] Work Phone: Comment on above: Expected: 02/11/2023 (Approximate), Expi res: 02/08/2024 Start: 02-11-2023 End: 02-08-2024 Phosphate [Mass/volume] in Serum or Plasma PHOSPHORUS INORGANIC Lab Routine Megaloblastic anemia due to vitamin B12 deficiency High total serum IgM Elevated sed rate Expected: 02/11/2023 (Approximate), Expires: 02/08/2024 [facility] Work Phone: Comment on above: Expected: 02/11/2023 (Approximate), Expi res: 02/08/2024 Start: 02-11-2023 End: 02-08-2024 PROTEIN ELECTROPHORESIS SERUM W/INTERP PROTEIN ELECTROPHORESIS SERUM W/INTERP Lab Routine Megaloblastic anemia due to vitamin B12 deficiency High total serum IgM Elevated sed rate Expected: 02/11/2023 (Approximate), Expires: 02/08/2024 [facility] Work Phone: Comment on above: Expected: 02/11/2023 (Approximate), Expi res: 02/08/2024 Start: 02-11-2023 End: 02-08-2024 Urate [Mass/volume] in Serum or Plasma URIC ACID BLOOD Lab Routine Megaloblastic anemia due to vitamin B12 deficiency High total serum IgM Elevated sed rate Expected: 02/11/2023 (Approximate), Expires: 02/08/2024 [facility] Work Phone: Comment on above: Expected: 02/11/2023 (Approximate), Expi res: 02/08/2024 Start: 01-22-2023 Influenza vaccination [facility] Start: 12-17-2022 End: 10-23-2023 CBC W Auto Differential panel - Blood CBC + DIFF Lab Routine Megaloblastic anemia due to vitamin B12 deficiency Expected: 12/17/2022 (Approximate), Expires: 10/23/2023 [facility] Work Phone: Comment on above: Expected: 12/17/2022 (Approximate), Expi res: 10/23/2023 Start: 12-17-2022 End: 10-23-2023 Cobalamin (Vitamin B12) [Mass/volume] in Serum or Plasma VITAMIN B12 BLOOD Lab Routine Megaloblastic anemia due to vitamin B12 deficiency Expected: 12/17/2022 (Approximate), Expires: 10/23/2023 [facility] Work Phone: Comment on above: Expected: 12/17/2022 (Approximate), Expi res: 10/23/2023 Start: 12-17-2022 End: 10-23-2023 Comprehensive metabolic 2000 panel - Serum or Plasma COMP METABOLIC PANEL Lab Routine Megaloblastic anemia due to vitamin B12 deficiency Expected: 12/17/2022 (Approximate), Expires: 10/23/2023 [facility] Work Phone: Comment on above: Expected: 12/17/2022 (Approximate), Expi res: 10/23/2023 Start: 12-17-2022 End: 10-23-2023 Ferritin [Mass/volume] in Serum or Plasma FERRITIN BLD Lab Routine Megaloblastic anemia due to vitamin B12 deficiency Expected: 12/17/2022 (Approximate), Expires: 10/23/2023 [facility] Work Phone: Comment on above: Expected: 12/17/2022 (Approximate), Expi res: 10/23/2023 Start: 12-17-2022 End: 10-23-2023 Folate [Mass/volume] in Serum or Plasma FOLATE SERUM Lab Routine Megaloblastic anemia due to vitamin B12 deficiency Expected: 12/17/2022 (Approximate), Expires: 10/23/2023 [facility] Work Phone: Comment on above: Expected: 12/17/2022 (Approximate), Expi res: 10/23/2023 Start: 12-17-2022 End: 10-23-2023 Iron and Iron binding capacity panel - Serum or Plasma IRON + TIBC Lab Routine Megaloblastic anemia due to vitamin B12 deficiency Expected: 12/17/2022 (Approximate), Expires: 10/23/2023 [facility] Work Phone: Comment on above: Expected: 12/17/2022 (Approximate), Expi res: 10/23/2023 Start: 10-23-2022 End: 12-23-2022 25-hydroxyvitamin D3 [Mass/volume] in Serum or Plasma VITAMIN D 25 HYDROXY Lab Routine Megaloblastic anemia due to vitamin B12 deficiency Elevated sed rate High total serum IgM Chronic fatigue and malaise JOSE RAFAEL (obstructive sleep apnea) Expected: 10/23/2022, Expires: 12/23/2022 [facility] Work Phone: Comment on above: Expected: 10/23/2022, Expires: 3 Start: 10-23-2022 End: 12-23-2022 C reactive protein [Mass/volume] in Serum or Plasma C-REACTIVE PROTEIN (CRP) Lab Routine Megaloblastic anemia due to vitamin B12 deficiency Elevated sed rate High total serum IgM Chronic fatigue and malaise JOSE RAFAEL (obstructive sleep apnea) Expected: 10/23/2022, Expires: 12/23/2022 [facility] Work Phone: Comment on above: Expected: 10/23/2022, Expires: 3 Start: 10-23-2022 End: 12-23-2022 CBC W Auto Differential panel - Blood CBC + DIFF Lab Routine Megaloblastic anemia due to vitamin B12 deficiency Elevated sed rate High total serum IgM Chronic fatigue and malaise JOSE RAFAEL (obstructive sleep apnea) Expected: 10/23/2022, Expires: 12/23/2022 [facility] Work Phone: Comment on above: Expected: 10/23/2022, Expires: 3 Start: 10-23-2022 End: 12-23-2022 Cobalamin (Vitamin B12) [Mass/volume] in Serum or Plasma VITAMIN B12 BLOOD Lab Routine Megaloblastic anemia due to vitamin B12 deficiency Elevated sed rate High total serum IgM Chronic fatigue and malaise JOSE RAFAEL (obstructive sleep apnea) Expected: 10/23/2022, Expires: 12/23/2022 [facility] Work Phone: Comment on above: Expected: 10/23/2022, Expires: 3 Start: 10-23-2022 End: 12-23-2022 Comprehensive metabolic 2000 panel - Serum or Plasma COMP METABOLIC PANEL Lab Routine Megaloblastic anemia due to vitamin B12 deficiency Elevated sed rate High total serum IgM Chronic fatigue and malaise JOSE RAFAEL (obstructive sleep apnea) Expected: 10/23/2022, Expires: 12/23/2022 [facility] Work Phone: Comment on above: Expected: 10/23/2022, Expires: 3 Start: 10-23-2022 End: 12-23-2022 Erythrocyte sedimentation rate SED RATE WESTERGREN Lab Routine Megaloblastic anemia due to vitamin B12 deficiency Elevated sed rate High total serum IgM Chronic fatigue and malaise JOSE RAFAEL (obstructive sleep apnea) Expected: 10/23/2022, Expires: 12/23/2022 [facility] Work Phone: Comment on above: Expected: 10/23/2022, Expires: 3 Start: 10-23-2022 End: 12-23-2022 Lactate dehydrogenase [Enzymatic activity/volume] in Serum or Plasma LD LACTATE DEHYDRO Lab Routine Megaloblastic anemia due to vitamin B12 deficiency Elevated sed rate High total serum IgM Chronic fatigue and malaise JOSE RAFAEL (obstructive sleep apnea) Expected: 10/23/2022, Expires: 12/23/2022 [facility] Work Phone: Comment on above: Expected: 10/23/2022, Expires: 3 Start: 10-23-2022 End: 12-23-2022 MONOCLONAL PROTEIN, SERUM (BLOOD) MONOCLONAL PROTEIN, SERUM (BLOOD) Lab Routine Megaloblastic anemia due to vitamin B12 deficiency Elevated sed rate High total serum IgM Chronic fatigue and malaise JOSE RAFAEL (obstructive sleep apnea) Expected: 10/23/2022, Expires: 12/23/2022 [facility] Work Phone: Comment on above: Expected: 10/23/2022, Expires: 3 Start: 10-23-2022 End: 12-23-2022 PROT ELECT SERUM WITH DANA AND INTERP PROT ELECT SERUM WITH DANA AND INTERP Lab Routine Megaloblastic anemia due to vitamin B12 deficiency Elevated sed rate High total serum IgM Chronic fatigue and malaise JOSE RAFAEL (obstructive sleep apnea) Expected: 10/23/2022, Expires: 12/23/2022 [facility] Work Phone: Comment on above: Expected: 10/23/2022, Expires: Start: 09-19-2022 End: 08-20-2023 CBC panel - Blood by Automated count CBC Lab Routine Anemia of chronic disease Expected: 09/19/2022 (Approximate), Expires: 08/20/2023 [facility] Work Phone: Comment on above: Expected: 09/19/2022 (Approximate), Expi res: 08/20/2023 Start: 09-19-2022 End: 08-20-2023 Comprehensive metabolic 2000 panel - Serum or Plasma COMP METABOLIC PANEL Lab Routine Elevated LFTs Expected: 09/19/2022 (Approximate), Expires: 08/20/2023 [facility] Work Phone: Comment on above: Expected: 09/19/2022 (Approximate), Expi res: 08/20/2023 Start: 09-19-2022 End: 11-19-2022 TPMT PHENOTYPE/ENZYME ACTIVITY TPMT PHENOTYPE/ENZYME ACTIVITY Lab Routine 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 Expected: 09/19/2022 (Approximate), Expires: 11/19/2022 [facility] Work Phone: Comment on above: Expected: 09/19/2022 (Approximate), Expi res: 11/19/2022 Start: 08-28-2022 End: 10-28-2022 25-hydroxyvitamin D3 [Mass/volume] in Serum or Plasma VITAMIN D 25 HYDROXY Lab Routine Megaloblastic anemia due to vitamin B12 deficiency Elevated sed rate High total serum IgM Chronic fatigue and malaise Expected: 08/28/2022 (Approximate), Expires: 10/28/2022 [facility] Work Phone: Comment on above: Expected: 08/28/2022 (Approximate), Expi res: 10/28/2022 Start: 08-28-2022 End: 07-26-2023 [id number] [Mass/volume] in Serum or Plasma B2 MICROGLOBULIN B Lab Routine Megaloblastic anemia due to vitamin B12 deficiency Elevated sed rate High total serum IgM Chronic fatigue and malaise Expected: 08/28/2022 (Approximate), Expires: 07/26/2023 [facility] Work Phone: Comment on above: Expected: 08/28/2022 (Approximate), Expi res: 07/26/2023 Start: 08-28-2022 End: 10-28-2022 C reactive protein [Mass/volume] in Serum or Plasma C-REACTIVE PROTEIN (CRP) Lab Routine Megaloblastic anemia due to vitamin B12 deficiency Elevated sed rate High total serum IgM Chronic fatigue and malaise Expected: 08/28/2022 (Approximate), Expires: 10/28/2022 [facility] Work Phone: Comment on above: Expected: 08/28/2022 (Approximate), Expi res: 10/28/2022 Start: 08-28-2022 End: 07-26-2023 Calcium.ionized [Moles/volume] in Blood CALCIUM IONIZED BLOOD Lab Routine Megaloblastic anemia due to vitamin B12 deficiency Elevated sed rate High total serum IgM Chronic fatigue and malaise Expected: 08/28/2022 (Approximate), Expires: 07/26/2023 [facility] Work Phone: Comment on above: Expected: 08/28/2022 (Approximate), Expi res: 07/26/2023 Start: 08-28-2022 End: 07-26-2023 CBC W Auto Differential panel - Blood CBC + DIFF Lab Routine Megaloblastic anemia due to vitamin B12 deficiency Elevated sed rate High total serum IgM Chronic fatigue and malaise Expected: 08/28/2022 (Approximate), Expires: 07/26/2023 [facility] Work Phone: Comment on above: Expected: 08/28/2022 (Approximate), Expi res: 07/26/2023 Start: 08-28-2022 End: 10-28-2022 Cobalamin (Vitamin B12) [Mass/volume] in Serum or Plasma VITAMIN B12 BLOOD Lab Routine Megaloblastic anemia due to vitamin B12 deficiency Elevated sed rate High total serum IgM Chronic fatigue and malaise Expected: 08/28/2022 (Approximate), Expires: 10/28/2022 [facility] Work Phone: Comment on above: Expected: 08/28/2022 (Approximate), Expi res: 10/28/2022 Start: 08-28-2022 End: 07-26-2023 Comprehensive metabolic 2000 panel - Serum or Plasma COMP METABOLIC PANEL Lab Routine Megaloblastic anemia due to vitamin B12 deficiency Elevated sed rate High total serum IgM Chronic fatigue and malaise Expected: 08/28/2022 (Approximate), Expires: 07/26/2023 [facility] Work Phone: Comment on above: Expected: 08/28/2022 (Approximate), Expi res: 07/26/2023 Start: 08-28-2022 End: 10-28-2022 Erythrocyte sedimentation rate SED RATE WESTERGREN Lab Routine Megaloblastic anemia due to vitamin B12 deficiency Elevated sed rate High total serum IgM Chronic fatigue and malaise Expected: 08/28/2022 (Approximate), Expires: 10/28/2022 [facility] Work Phone: Comment on above: Expected: 08/28/2022 (Approximate), Expi res: 10/28/2022 Start: 08-28-2022 End: 10-28-2022 KAPPA/FARMER,FREE,SER KAPPA/FARMER,FREE,SER Lab Routine Megaloblastic anemia due to vitamin B12 deficiency Elevated sed rate High total serum IgM Chronic fatigue and malaise Expected: 08/28/2022 (Approximate), Expires: 10/28/2022 [facility] Work Phone: Comment on above: Expected: 08/28/2022 (Approximate), Expi res: 10/28/2022 Start: 08-28-2022 End: 07-26-2023 Lactate dehydrogenase [Enzymatic activity/volume] in Serum or Plasma LD LACTATE DEHYDRO Lab Routine Megaloblastic anemia due to vitamin B12 deficiency Elevated sed rate High total serum IgM Chronic fatigue and malaise Expected: 08/28/2022 (Approximate), Expires: 07/26/2023 [facility] Work Phone: Comment on above: Expected: 08/28/2022 (Approximate), Expi res: 07/26/2023 Start: 08-28-2022 End: 07-26-2023 MONOCLONAL PROTEIN, SERUM (BLOOD) MONOCLONAL PROTEIN, SERUM (BLOOD) Lab Routine Megaloblastic anemia due to vitamin B12 deficiency Elevated sed rate High total serum IgM Chronic fatigue and malaise Expected: 08/28/2022 (Approximate), Expires: 07/26/2023 [facility] Work Phone: Comment on above: Expected: 08/28/2022 (Approximate), Expi res: 07/26/2023 Start: 08-28-2022 End: 07-26-2023 Phosphate [Mass/volume] in Serum or Plasma PHOSPHORUS INORGANIC Lab Routine Megaloblastic anemia due to vitamin B12 deficiency Elevated sed rate High total serum IgM Chronic fatigue and malaise Expected: 08/28/2022 (Approximate), Expires: 07/26/2023 [facility] Work Phone: Comment on above: Expected: 08/28/2022 (Approximate), Expi res: 07/26/2023 Start: 08-28-2022 End: 07-26-2023 PROTEIN ELECTROPHORESIS SERUM W/INTERP PROTEIN ELECTROPHORESIS SERUM W/INTERP Lab Routine Megaloblastic anemia due to vitamin B12 deficiency Elevated sed rate High total serum IgM Chronic fatigue and malaise Expected: 08/28/2022 (Approximate), Expires: 07/26/2023 [facility] Work Phone: Comment on above: Expected: 08/28/2022 (Approximate), Expi res: 07/26/2023 Start: 08-28-2022 End: 07-26-2023 Urate [Mass/volume] in Serum or Plasma URIC ACID BLOOD Lab Routine Megaloblastic anemia due to vitamin B12 deficiency Elevated sed rate High total serum IgM Chronic fatigue and malaise Expected: 08/28/2022 (Approximate), Expires: 07/26/2023 [facility] Work Phone: Comment on above: Expected: 08/28/2022 (Approximate), Expi res: 07/26/2023 Start: 07-15-2022 End: 05-20-2023 [id number] [Mass/volume] in Serum or Plasma B2 MICROGLOBULIN B Lab Routine High total serum IgM Expected: 07/15/2022 (Approximate), Expires: 05/20/2023 [facility] Work Phone: Comment on above: Expected: 07/15/2022 (Approximate), Expi res: 05/20/2023 Start: 07-15-2022 End: 05-20-2023 Calcium.ionized [Moles/volume] in Blood CALCIUM IONIZED BLOOD Lab Routine High total serum IgM Expected: 07/15/2022 (Approximate), Expires: 05/20/2023 [facility] Work Phone: Comment on above: Expected: 07/15/2022 (Approximate), Expi res: 05/20/2023 Start: 07-15-2022 End: 05-20-2023 CBC W Auto Differential panel - Blood CBC + DIFF Lab Routine High total serum IgM Expected: 07/15/2022 (Approximate), Expires: 05/20/2023 [facility] Work Phone: Comment on above: Expected: 07/15/2022 (Approximate), Expi res: 05/20/2023 Start: 07-15-2022 End: 05-20-2023 Comprehensive metabolic 2000 panel - Serum or Plasma COMP METABOLIC PANEL Lab Routine High total serum IgM Expected: 07/15/2022 (Approximate), Expires: 05/20/2023 [facility] Work Phone: Comment on above: Expected: 07/15/2022 (Approximate), Expi res: 05/20/2023 Start: 07-15-2022 End: 09-14-2022 KAPPA/FARMER,FREE,SER KAPPA/FARMER,FREE,SER Lab Routine High total serum IgM Expected: 07/15/2022 (Approximate), Expires: 09/14/2022 [facility] Work Phone: Comment on above: Expected: 07/15/2022 (Approximate), Expi res: 09/14/2022 Start: 07-15-2022 End: 05-20-2023 Lactate dehydrogenase [Enzymatic activity/volume] in Serum or Plasma LD LACTATE DEHYDRO Lab Routine High total serum IgM Expected: 07/15/2022 (Approximate), Expires: 05/20/2023 [facility] Work Phone: Comment on above: Expected: 07/15/2022 (Approximate), Expi res: 05/20/2023 Start: 07-15-2022 End: 05-20-2023 MONOCLONAL PROTEIN, SERUM (BLOOD) MONOCLONAL PROTEIN, SERUM (BLOOD) Lab Routine High total serum IgM Expected: 07/15/2022 (Approximate), Expires: 05/20/2023 [facility] Work Phone: Comment on above: Expected: 07/15/2022 (Approximate), Expi res: 05/20/2023 Start: 07-15-2022 End: 05-20-2023 Phosphate [Mass/volume] in Serum or Plasma PHOSPHORUS INORGANIC Lab Routine High total serum IgM Expected: 07/15/2022 (Approximate), Expires: 05/20/2023 [facility] Work Phone: Comment on above: Expected: 07/15/2022 (Approximate), Expi res: 05/20/2023 Start: 07-15-2022 End: 05-20-2023 PROTEIN ELECTROPHORESIS SERUM W/INTERP PROTEIN ELECTROPHORESIS SERUM W/INTERP Lab Routine High total serum IgM Expected: 07/15/2022 (Approximate), Expires: 05/20/2023 [facility] Work Phone: Comment on above: Expected: 07/15/2022 (Approximate), Expi res: 05/20/2023 Start: 07-15-2022 End: 05-20-2023 Urate [Mass/volume] in Serum or Plasma URIC ACID BLOOD Lab Routine High total serum IgM Expected: 07/15/2022 (Approximate), Expires: 05/20/2023 [facility] Work Phone: Comment on above: Expected: 07/15/2022 (Approximate), Expi res: 05/20/2023 Start: 06-05-2022 End: 03-05-2023 25-hydroxyvitamin D3 [Mass/volume] in Serum or Plasma VITAMIN D 25 HYDROXY Lab Routine Vitamin D deficiency Expected: 06/05/2022 (Approximate), Expires: 03/05/2023 [facility] Work Phone: Comment on above: Expected: 06/05/2022 (Approximate), Expi res: 03/05/2023 Start: 06-05-2022 End: 03-05-2023 C reactive protein [Mass/volume] in Serum or Plasma C-REACTIVE PROTEIN (CRP) Lab Routine Elevated sed rate Elevated C-reactive protein (CRP) Expected: 06/05/2022 (Approximate), Expires: 03/05/2023 [facility] Work Phone: Comment on above: Expected: 06/05/2022 (Approximate), Expi res: 03/05/2023 Start: 06-05-2022 End: 03-05-2023 Cobalamin (Vitamin B12) [Mass/volume] in Serum or Plasma VITAMIN B12 BLOOD Lab Routine Vitamin B12 deficiency Expected: 06/05/2022 (Approximate), Expires: 03/05/2023 [facility] Work Phone: Comment on above: Expected: 06/05/2022 (Approximate), Expi res: 03/05/2023 Start: 06-05-2022 End: 03-05-2023 Erythrocyte sedimentation rate SED RATE WESTERGREN Lab Routine Elevated sed rate Elevated C-reactive protein (CRP) Expected: 06/05/2022 (Approximate), Expires: 03/05/2023 [facility] Work Phone: Comment on above: Expected: 06/05/2022 (Approximate), Expi res: 03/05/2023 Start: 05-06-2022 End: 03-18-2023 [id number] [Mass/volume] in Serum or Plasma B2 MICROGLOBULIN B Lab Routine Megaloblastic anemia due to vitamin B12 deficiency High total serum IgM Expected: 05/06/2022 (Approximate), Expires: 03/18/2023 [facility] Work Phone: Comment on above: Expected: 05/06/2022 (Approximate), Expi res: 03/18/2023 Start: 05-06-2022 End: 03-18-2023 Calcium.ionized [Moles/volume] in Blood CALCIUM IONIZED BLOOD Lab Routine Megaloblastic anemia due to vitamin B12 deficiency High total serum IgM Expected: 05/06/2022 (Approximate), Expires: 03/18/2023 [facility] Work Phone: Comment on above: Expected: 05/06/2022 (Approximate), Expi res: 03/18/2023 Start: 05-06-2022 End: 03-18-2023 CBC W Auto Differential panel - Blood CBC + DIFF Lab Routine Megaloblastic anemia due to vitamin B12 deficiency High total serum IgM Expected: 05/06/2022 (Approximate), Expires: 03/18/2023 [facility] Work Phone: Comment on above: Expected: 05/06/2022 (Approximate), Expi res: 03/18/2023 Start: 05-06-2022 End: 03-18-2023 Comprehensive metabolic 2000 panel - Serum or Plasma COMP METABOLIC PANEL Lab Routine Megaloblastic anemia due to vitamin B12 deficiency High total serum IgM Expected: 05/06/2022 (Approximate), Expires: 03/18/2023 [facility] Work Phone: Comment on above: Expected: 05/06/2022 (Approximate), Expi res: 03/18/2023 Start: 05-06-2022 End: 03-18-2023 Ferritin [Mass/volume] in Serum or Plasma FERRITIN BLD Lab Routine Megaloblastic anemia due to vitamin B12 deficiency High total serum IgM Expected: 05/06/2022 (Approximate), Expires: 03/18/2023 [facility] Work Phone: Comment on above: Expected: 05/06/2022 (Approximate), Expi res: 03/18/2023 Start: 05-06-2022 End: 03-18-2023 Iron and Iron binding capacity panel - Serum or Plasma IRON + TIBC Lab Routine Megaloblastic anemia due to vitamin B12 deficiency High total serum IgM Expected: 05/06/2022 (Approximate), Expires: 03/18/2023 [facility] Work Phone: Comment on above: Expected: 05/06/2022 (Approximate), Expi res: 03/18/2023 Start: 05-06-2022 End: 03-18-2023 Lactate dehydrogenase [Enzymatic activity/volume] in Serum or Plasma LD LACTATE DEHYDRO Lab Routine Megaloblastic anemia due to vitamin B12 deficiency High total serum IgM Expected: 05/06/2022 (Approximate), Expires: 03/18/2023 [facility] Work Phone: Comment on above: Expected: 05/06/2022 (Approximate), Expi res: 03/18/2023 Start: 05-06-2022 End: 03-18-2023 MONOCLONAL PROTEIN, SERUM (BLOOD) MONOCLONAL PROTEIN, SERUM (BLOOD) Lab Routine Megaloblastic anemia due to vitamin B12 deficiency High total serum IgM Expected: 05/06/2022 (Approximate), Expires: 03/18/2023 [facility] Work Phone: Comment on above: Expected: 05/06/2022 (Approximate), Expi res: 03/18/2023 Start: 05-06-2022 End: 03-18-2023 Phosphate [Mass/volume] in Serum or Plasma PHOSPHORUS INORGANIC Lab Routine Megaloblastic anemia due to vitamin B12 deficiency High total serum IgM Expected: 05/06/2022 (Approximate), Expires: 03/18/2023 [facility] Work Phone: Comment on above: Expected: 05/06/2022 (Approximate), Expi res: 03/18/2023 Start: 05-06-2022 End: 03-18-2023 PROTEIN ELECTROPHORESIS SERUM W/INTERP PROTEIN ELECTROPHORESIS SERUM W/INTERP Lab Routine Megaloblastic anemia due to vitamin B12 deficiency High total serum IgM Expected: 05/06/2022 (Approximate), Expires: 03/18/2023 [facility] Work Phone: Comment on above: Expected: 05/06/2022 (Approximate), Expi res: 03/18/2023 Start: 05-06-2022 End: 03-18-2023 Urate [Mass/volume] in Serum or Plasma URIC ACID BLOOD Lab Routine Megaloblastic anemia due to vitamin B12 deficiency High total serum IgM Expected: 05/06/2022 (Approximate), Expires: 03/18/2023 [facility] Work Phone: Comment on above: Expected: 05/06/2022 (Approximate), Expi res: 03/18/2023 Start: 04-05-2022 COVID-19 VACCINE (5 - Pfizer risk series) COVID-19 VACCINE (5 - Pfizer risk series) [facility] Start: 03-09-2022 End: 05-09-2022 Hemoglobin A1c in Blood HGB A1C Lab Routine Elevated glucose Expected: 03/09/2022, Expires: 05/09/2022 [facility] Work Phone: Comment on above: Expected: 03/09/2022, Expires: 2 Start: 02-24-2022 End: 04-26-2022 BARTONELLA AB PANEL BARTONELLA AB PANEL Lab Routine Swelling of lymph nodes Expected: 02/24/2022, Expires: 04/26/2022 [facility] Work Phone: Comment on above: Expected: 02/24/2022, Expires: 2 Start: 02-24-2022 End: 04-26-2022 BRUCELLA AB TOTAL BRUCELLA AB TOTAL Lab Routine Swelling of lymph nodes Expected: 02/24/2022, Expires: 04/26/2022 [facility] Work Phone: Comment on above: Expected: 02/24/2022, Expires: 2 Start: 02-24-2022 End: 04-26-2022 Cryptococcus sp Ag [Presence] in Unspecified specimen by Latex agglutination CRYPTOCOCCUS AG DET Microbiology Routine Swelling of lymph nodes Expected: 02/24/2022, Expires: 04/26/2022 [facility] Work Phone: Comment on above: Expected: 02/24/2022, Expires: 2 Start: 02-24-2022 End: 04-26-2022 HISTOPLASMA AG URINE HISTOPLASMA AG URINE Lab Routine Swelling of lymph nodes Expected: 02/24/2022, Expires: 04/26/2022 [facility] Work Phone: Comment on above: Expected: 02/24/2022, Expires: 2 Start: 02-24-2022 End: 04-26-2022 HIV 1 RNA [#/volume] (viral load) in Serum or Plasma by YESSI with probe detection HIV RNA VIRAL LOAD Lab Routine Swelling of lymph nodes Expected: 02/24/2022, Expires: 04/26/2022 [facility] Work Phone: Comment on above: Expected: 02/24/2022, Expires: 2 Start: 02-24-2022 End: 04-26-2022 SYPHILIS TOTAL W/REFLEX SYPHILIS TOTAL W/REFLEX Lab Routine Swelling of lymph nodes Expected: 02/24/2022, Expires: 04/26/2022 [facility] Work Phone: Comment on above: Expected: 02/24/2022, Expires: 2 Start: 01-22-2022 Influenza vaccination [facility] Start: 08-24-2021 COVID-19 VACCINE (4 - Booster for Pfizer series) COVID-19 VACCINE (4 - Booster for Pfizer series) [facility] Start: 01-22-2021 Influenza vaccination Flu vaccine (Season Ended) [facility] Work Phone: Start: 2020 Lipid panel Lipid screen [facility] Work Phone: Start: 2020 Mammography [facility] Start: 2020 Screening for malignant neoplasm of breast [facility] Start: 2010 HPV TESTING HPV TESTING [facility] Start: 2010 Screening for malignant neoplasm of cervix [facility] Start: 10-05-2007 HPV Vaccine (1 - Risk 3-dose SCDM series) HPV Vaccine (1 - Risk 3-dose SCDM series) [facility] Start: 2002 DTaP/Tdap/Td Vaccines (1 - Tdap) DTaP/Tdap/Td Vaccines (1 - Tdap) [facility] Start: 2001 PAP TESTING PAP TESTING [facility] Start: 2001 Screening for malignant neoplasm of cervix [facility] Start: 10-05-1999 DTaP,Tdap and Td Vaccines (1 - Tdap) DTaP,Tdap and Td Vaccines (1 - Tdap) [facility] Start: 10-05-1999 DTaP/Tdap/Td vaccine (1 - Tdap) DTaP/Tdap/Td vaccine (1 - Tdap) [facility] Phone: Start: 10-05-1999 Hepatitis B Vaccine (1 of 3 - 19+ 3-dose series) Hepatitis B Vaccine (1 of 3 - 19+ 3-dose series) [facility] Start: 10-05-1999 Hepatitis B Vaccines (1 of 3 - 19+ 3-dose series) Hepatitis B Vaccines (1 of 3 - 19+ 3-dose series) [facility] Start: 10-05-1999 Pneumococcal vaccination Pneumococcal Vaccine (1 of 2 - PCV) [facility] Start: 10-05-1999 Pneumococcal Vaccine: Pediatrics and At-Risk Adult Patients (1 of 2 - PCV) Pneumococcal Vaccine: Pediatrics and At-Risk Adult Patients (1 of 2 - PCV) [facility] Start: 10-05-1999 SHINGRIX VACCINE (1 of 2) SHINGRIX VACCINE (1 of 2) [facility] [facility] Start: 10-05-1999 Urine microalbumin profile [facility] Start: 10-05-1999 Zoster Vaccines (1 of 2) Zoster Vaccines (1 of 2) [facility] Start: 1998 Adult BMI Follow Up Plan Adult BMI Follow Up Plan [facility] Start: 1998 Adult BMI Screening Adult BMI Screening [facility] Start: 1998 Anxiety Screening Anxiety Screening [facility] Start: 1998 Hepatitis C screening Hepatitis C Screening [facility] Start: 1998 HIV SCREENING HIV SCREENING [facility] Start: 1998 HIV screening HIV Screening [facility] Start: 10-05-1995 HIV screening HIV screen [facility] Phone: Start: 1993 Varicella vaccination Varicella Vaccines (1 of 2 - 13+ 2-dose series) [facility] Start: 1992 COVID-19 Vaccine (1) COVID-19 Vaccine (1) [facility] Phone: Start: 1992 Depression Screening Depression Screening [facility] Start: 1992 Tobacco Screening Tobacco Screening [facility] Start: 10-05-1991 Screening for malignant neoplasm of cervix Cervical Cancer Screening [facility] Start: 1986 PNEUMOCOCCAL (1 - PCV) PNEUMOCOCCAL (1 - PCV) [facility] Start: 1986 Pneumococcal vaccination [facility] Start: 1986 Pneumococcal Vaccine: Pediatrics (0 to 5 Years) and At-Risk Patients (6 to 64 Years) (1 - PCV) Pneumococcal Vaccine: Pediatrics (0 to 5 Years) and At-Risk Patients (6 to 64 Years) (1 - PCV) [facility] Start: 1981 MMR Vaccines (1 of 1 - Standard series) MMR Vaccines (1 of 1 - Standard series) [facility] Start: 1981 Varicella vaccination Varicella Vaccines (1 of 2 - 2-dose childhood series) [facility] Start: 1981 Varicella vaccine (1 of 2 - 2-dose childhood series) Varicella vaccine (1 of 2 - 2-dose childhood series) [facility] Phone: Start: 1980 HEPATITIS B (1 of 3 - 3-dose series) HEPATITIS B (1 of 3 - 3-dose series) [facility] Start: 1980 Hepatitis B Vaccine (1 of 3 - 3-dose series) Hepatitis B Vaccine (1 of 3 - 3-dose series) [facility] Start: 1980 Hepatitis B Vaccines (1 of 3 - 3-dose series) Hepatitis B Vaccines (1 of 3 - 3-dose series) [facility] Start: 1980 Hepatitis C screening Hepatitis C screen [facility] Phone: Start: 1980 HIV screening HIV Screening [facility] Start: 1980 HPV Vaccine: Recommended Based On Risk HPV Vaccine: Recommended Based On Risk [facility] Start: 1980 Lipid panel Lipid Panel [facility] Start: 1980 Screening for osteoporosis Bone Density Scan [facility] Start: 1980 Tobacco Counseling Tobacco Counseling [facility] Start: 1980 Yearly Adult Physical Yearly Adult Physical [facility] 25-hydroxyvitamin D3 [Mass/volume] in Serum or Plasma VITAMIN D 25 HYDROXY Lab Routine Vitamin D deficiency 01/11/2025 1:48 PM EDT [facility] BLOOD TB SCREEN BLOOD TB SCREEN Lab Routine Screening-pulmonary TB 01/11/2025 1:48 PM EDT [facility] C reactive protein [Mass/volume] in Serum or Plasma C-REACTIVE PROTEIN Lab Routine Elevated sed rate Elevated C-reactive protein (CRP) 01/11/2025 1:48 PM EDT [facility] Cardiovascular funct ion eval w/tilt table w/mntr TILT TABLE EVALUATION Cardiology Routine POTS (postural orthostatic tachycardia syndrome) Ordered: 03/09/2022 [facility] Work Phone: Comment on above: Ordered: 03/09/2022 CBC W Auto Different ial panel - Blood CBC and differential Lab Routine Menorrhagia with regular cycle Ordered: 03/23/2024 [facility] [employer] Work Phone: Comment on above: Ordered: 03/23/2024 Chronic hepatitis differentiation between hepatitis B and C virus panel - Serum or Plasma HEP REMOTE PANEL BL Lab Routine Elevated LFTs 01/11/2025 1:48 PM EDT [facility] Cobalamin (Vitamin B 12) [Mass/volume] in Serum or Plasma VITAMIN B12 Lab Routine Vitamin B12 deficiency 01/11/2025 1:48 PM EDT [facility] CT Abdomen W contrast IV [facility] End: 03-05-2024 DXA-AXIAL SKELETON DXA-AXIAL SKELETON Radiology Routine Steroid-induced osteoporosis 1 Occurrences starting 02/04/2023 until 03/05/2024 [facility] Work Phone: Comment on above: 1 Occurrences starting 02/04/2023 until 03/05/2024 End: 03-05-2024 DXA-FOREARM SKELETON DXA-FOREARM SKELETON Radiology Routine Steroid-induced osteoporosis 1 Occurrences starting 02/04/2023 until 03/05/2024 [facility] Work Phone: Comment on above: 1 Occurrences starting 02/04/2023 until 03/05/2024 ECG 12 Lead ECG 12 Lead ECG Routine Irregular heart rate 06/09/2023 8:28 AM EST [facility] Work Phone: Erythrocyte sediment ation rate SEDIMENTATION RATE, WESTERGREN Lab Routine Elevated sed rate Elevated C-reactive protein (CRP) 01/11/2025 1:48 PM EDT [facility] Work Phone: hCG, quantitative, hCG, quantitative, Lab Routine Menorrhagia with regular cycle Ordered: 03/23/2024 [facility] Comment on above: Ordered: 03/23/2024 Hemoglobin A1c/Hemoglobin.total in Blood Hemoglobin A1c Lab Routine Menorrhagia with regular cycle Ordered: 03/23/2024 [facility] Comment on above: Ordered: 03/23/2024 Hepatitis B virus co re Ab [Presence] in Serum HEPATITIS B CORE ANTIBODY TOTAL Lab Routine Elevated LFTs 01/11/2025 1:48 PM EDT [facility] Hepatitis B virus galarza rface Ab [Presence] in Serum HEPATITIS B SURFACE ANTIBODY Lab Routine Elevated LFTs 01/11/2025 1:48 PM EDT [facility] Hepatitis B virus galarza rface Ag [Presence] in Serum HEPATITIS B SURFACE ANTIGEN Lab Routine Elevated LFTs 01/11/2025 1:48 PM EDT [facility] Hepatitis C virus Ab [Presence] in Serum HEPATITIS C ANTIBODY IA WITH CONFIRMATION Lab Routine Elevated LFTs 01/11/2025 1:48 PM EDT [facility] End: 03-09-2023 HOME SLEEP APNEA TEST (HSAT) HOME SLEEP APNEA TEST (HSAT) Procedures Routine Somnolence, daytime Snoring 1 Occurrences starting 03/09/2022 until 03/09/2023 [facility] Work Phone: Comment on above: 1 Occurrences starting 03/09/2022 until 03/09/2023 HYDROGEN BREATH TEST B/O HYDROGE N BREATH TEST B/O Procedures Routine Diarrhea, unspecified type Abdominal pressure Ordered: 06/14/2024 [facility] Work Phone: Comment on above: Ordered: 06/14/2024 Oxygen therapy [[facility] Data Set] Initiate Oxygen Therapy Protocol Respiratory Care Routine Daily until discontinued starting 10/07/2020 [facility] Work Phone: Comment on above: Daily until discontinued starting 2020 Patient Education Know your Meds Jorge Luis Non Diagnostic Block [facility] Work Phone: Patient referral [facility] Work Phone: End: 03-04-2023 Polysomnogram POLYSOMNOGRAM (PSG) Procedures Routine Somnolence, daytime Snoring 1 Occurrences starting 03/04/2022 until 03/04/2023 [facility] Work Phone: Comment on above: 1 Occurrences starting 03/04/2022 until 03/04/2023 Prothrombin time (PT ) in Blood by Coagulation assay Protime-INR Lab Routine Menorrhagia with regular cycle Ordered: 03/23/2024 [facility] Comment on above: Ordered: 03/23/2024 THIN PREP TIS PAP AN D HR HPV DNA THIN PREP TIS PAP AND HR HPV DNA Pathology and Cytology Routine Well woman exam with routine gynecological exam Ordered: 06/06/2024 [facility] Comment on above: Ordered: 06/06/2024 Thyrotropin [Units/v olume] in Serum or Plasma TSH Lab Routine Menorrhagia with regular cycle Ordered: 03/23/2024 [facility] Comment on above: Ordered: 03/23/2024 Thyroxine (T4) free [Mass/volume] in Serum or Plasma T4, free Lab Routine Menorrhagia with regular cycle Ordered: 03/23/2024 [facility] Comment on above: Ordered: 03/23/2024 XR Thoracic spine 3 Views [facility] Immunizations Immunization Date Immunization Notes Care Provider Fa cili 02-23-2023 COVID-19 vaccine, ag e 12+ yr, season (PFIZER-BIONTJamplify) Lynne Ni MD Work Phone: [facility] 02-08-2022 COVID-19 mRNA Bivale nt Booster (Pfizer) Gay Enciso LAB CLERK-C Work Phone: [facility] 05-26-2021 COVID-19 mRNA, Comirnaty (Pfizer) Gay Enciso LAB CLERK-C Work Phone: [facility] 10-19-2020 COVID-19 mRNA, Comirnaty (Pfizer) Gay Enciso LAB CLERK-C Work Phone: [facility] 09-28-2020 COVID-19 mRNA, Comirnaty (Pfizer) Gay Enciso LAB CLERK-C Work Phone: [facility] Payers Date Payer Category Payer Medicaid [facility] [id number] 2024 Self-pay [id number] 2017 Medicaid (Managed Care) [employer] [id number] 2017 Private Health Insurance [facility] [id number] 2017 Unknown [employer] OUR [id number] 2017-Present [address] [place] [address] [id number] 2009 Medicaid [employer] [id number] 2009-Present [phone] [address] [place] [address] Medicaid [id number] 2009 Medicaid [id number]. [id number] 1980 Unknown [id number] 2.16.840.1.392690.3.579.2. 185 1980 Unknown [id number] 2.16.840.1.903427.3.579.2. 175 1980 Unknown [id number] 2.16.840.1.777911.3.579.2. 593 1980 Unknown [id number] 2.16.840.1.544070.3.579.2. 593 1980 Unknown [id number] 2.16.840.1.902371.3.579.2. 593 1980 Unknown [id number] 2.16.840.1.459187.3.579.2. 593 1980 Unknown [id number] 2.16.840.1.007740.3.579.2. 593 1980 Unknown [id number] 2.16.840.1.365238.3.579.2. 593 1980 Unknown [id number] 2.16.840.1.324490.3.579.2. 593 1980 Unknown [id number] 2.16.840.1.368162.3.579.2. 593 1980 Unknown [id number] 2.16.840.1.197770.3.579.2. 593 1980 Unknown [id number] 2.16.840.1.040025.3.579.2. 593 1980 Unknown [id number] 2.16.840.1.633888.3.579.2. 1244 1980 Unknown [id number] 2.16.840.1.344227.3.579.2. 1244 1980 Unknown [id number] 2.16.840.1.162503.3.579.2. 1259 1980 Unknown [id number] 2.16.840.1.559081.3.579.2. 1259 1980 Unknown [id number] 2.16.840.1.431311.3.579.2. 1258 1980 Unknown [id number] 2.16.840.1.140410.3.579.2. 1258 1980 Unknown [id number] 2.16.840.1.402128.3.579.2. 1258 1980 Unknown [id number] 2.16.840.1.190309.3.579.2. 1258 1980 Unknown [id number] 2.16.840.1.573827.3.579.2. 1258 1980 Unknown [id number] 2.16.840.1.890902.3.579.2. 1258 1980 Unknown [id number] 2.16.840.1.143169.3.579.2. 1258 1980 Unknown [id number] 2.16.840.1.885552.3.579.2. 9 1959 Unknown [id number] 1959 Unknown [id number] Unknown [id number] 2.16.840.1.315830.3.579.2. 531 Unknown [id number] 2.16.840.1.959068.3.579.2. 531 Unknown [id number] 2.16.840.1.666368.3.579.2. 531 Unknown [id number] 2.16.840.1.299237.3.579.2. 531 Social History Date Type Detail Facility Start: 05-24-1995 End: 11-08-2023 Tobacco smoking status DEIS Current every day smoker [facility] Start: 10-07-2020 End: 11-08-2023 Tobacco use and exposure Never used [facility] Start: 10-07-2020 End: 02-14-2025 Alcohol intake Lifetime non-drinker (finding) [facility] Phone: Start: 10-07-2020 History SDOH Alcohol Frequency 1 [facility] Phone: Start: 1980 Sex Assigned At Not on file [facility] [employer] Work Phone: Start: 02-22-2022 End: 07-26-2024 Exposure to SARS-CoV-2 (event) Not sure [facility] Start: 05-24-1995 History of tobacco use Cigarette Smo ker [facility] Start: 05-31-2014 End: 11-23-2024 Cigarettes smoked current (pack per day) - Reported 1 [facility] Start: 10-24-2021 End: 11-29-2024 Alcohol intake Current non-drinker of alcohol (finding) [facility] Start: 10-14-2021 End: 10-24-2021 Exposure to SARS-CoV-2 (event) Unable to assess [facility] Start: 10-22-2022 End: 11-23-2024 Sex Assigned At [facility] Start: 05-31-2014 Adult Depression Screening Assessment 1 [facility] Start: 10-19-2022 Tobacco Comment Current smoker , everyday, 11-20 cigarettes/day [facility] Start: 05-31-2023 Alcohol Comment Caffeine intak e : > 4 cups per day [facility] Start: 08-19-2016 End: 12-16-2023 Tobacco smoking status NHIS Smoker (finding) [facility] Start: 1980 Sex Assigned At Female F [facility] Start: 07-02-2016 End: 08-22-2024 Sex Female (finding) [facility] Start: 02-21-2024 Gender identity Identifies as female gender (finding) [facility] Goals Date Patient Goal Desired Activity /State Functional Status Date Assessment Result Facility 12-25-2014 Are you deaf, or do you have serious difficulty hearing No 12/25/2014 11:14 AM Chichi Womack Ma No [facility] 12-25-2014 Are you blind, or do you have serious difficulty seeing, even when wearing glasses No 12/25/2014 11:14 AM Chichi Womack Ma No [facility] 12-25-2014 Do you have serious difficulty walking or climbing stairs Yes 12/25/2014 11:14 AM Chichi Womack Ma Yes [facility] 12-25-2014 Do you have difficul ty dressing or bathing Yes 12/25/2014 11:14 AM EDT Chichi Zarco Ma Yes [facility] 12-25-2014 Because of a physica l, mental, or emotional condition, do you have difficulty doing errands alone such as visiting a physician's office or shopping No 12/25/2014 11:14 AM EDT Chichi Zarco Ma [facility] Mental Status Date Assessment Result Facility 12-25-2014 Because of a physica l, mental, or emotional condition, do you have serious difficulty concentrating, remembering, or making decisions No 12/25/2014 11:14 AM EDT Chichi Zarco Ma [facility] Clinical Notes 05-31-2014 to 02-21-2025 Bernabe English MD - 02/14/2025 3:20 PM EDTRohreElena nelson RN - 01/24/2025 3:40 PM EDTTelephone Encounter - Merry Chairez RN - 01/18/2025 5:09 PM EDJhonathan Saunders RN - 12/14/2024 3:58 PM EDT Note Date & Type Note Facility 02-21-2025 Note [facility] 02-21-2025 Note [facility] 02-14-2025 History of Presen t illness Narrative [...] Visit: as scheduled documented in this encounter [facility] 01-24-2025 Note [facility] 01-24-2025 History of Presen t illness Narrative Pt did not receive B12 injection today. Pt called & agreeable to receive it when she returns in 2 weeks for her Benlysta infusion. Pharmacy aware and moving date. Elena Alfonso RN documented in this encounter [facility] 01-18-2025 Telephone encounter Note MC message read by patient . [facility] 01-18-2025 Miscellaneous Notes MC message read [...] start prior authorization documented in this encounter [facility] 01-18-2025 Telephone encounter Note Please Call [...] sq benlysta to IV, start prior authorization [facility] 12-14-2024 Note HNO ID: [id number] Author: JHONATHAN VALE RN Service: ? Author Type: Registered Nurse Type: Progress Notes Filed: 12/14/2024 16:36 Note Text: Ran over 2 hours per patient request. [facility] 12-14-2024 History of Presen t illness Narrative Ran over 2 hours per patient request. documented in this encounter [facility] 12-14-2024 Note [facility] 12-14-2024 History of Presen t illness Narrative CMN RECEIVED BY [facility] VIA FAX, COMPLETED, AND PLACED IN PROVIDER MAILBOX FOR SIGNATURE [employer] SENDING CMN: Josh SIGNED AND DATED CMN, FAXED TO DME & CONFIRMATION PAGE RECEIVED: 12.14.2024 documented in this encounter [facility] 11-30-2024 Evaluation note Diagnosis Onset Date [...] Sept2024 9:23am Sacroiliitis acute February 142024 9:23am [facility] Work Phone: 1(669) 853-986007-10-2025 Telephone encounter Note* Telephone Encounter - Enma Hamm RN - 11/30/2024 8:36 AM EDT Pt updated on results. Will continue with IVIG, as previously scheduled. Denied further needs or concerns at this time. Enma Hamm RN [facility]07-10-2025 Miscellaneous Notes* Telephone Encounter - Enma Hamm RN - 11/30/2024 8:36 AM EDT Pt updated on results. Will continue with IVIG, as previously scheduled. Denied further needs or concerns at this time. Enma Hamm RN documented in this encounter[facility] History of Present illness Narrative* Vaibhav Carvalho APRN.TRUE - 11/29/2024 8:43 AM EDT Images from the original note were not included. NAME: Tera[facility]riadna [facility] NO.: [id number] DATE OF SERVICE: .November 29, 2024 (Deven) [...] to monitor; no current intervention required per [facility] recommendations. 7. Pre-diabetes (R73.03) Borderline diabetic. [...] requiring a recent corticosteroid injection by her helpdesk analyst. She experiences intermittent fatigue, shortness of breath, [...] lower lip done 2 days ago at [facility] - awaiting results. B12 helps especially at [...] injections. Shefollows with multiple doctors including and lecturer in marketing, title i instructional assistant, helpdesk analyst and PCP. She has been told they [...] subcutaneously one time a week. Per PCP [id number] (BMX 1:1:1) 1:1:1 liqd Take 5 mL [...] (Crohn's [Other]) Mother . Vaibhav Carvalho APRN, LAB CLERK-C, [facility] Provided at: [place], [place] CC: Manuel Ferris MD [id number] [facility] [id number] documented in this encounterTri[facility] History of Present illness Narrative* KELVIN [...] Next Visit: as scheduled [facility] [id number] Telephone encounter Note* Telephone Encounter - Renea Schneider MA - 11/20/2024 12:00 PM EDT Patient coming in for treatment visit Wednesday11/29/24. Please add lab orders. thanks. Renea Schneider MA [facility]06-23-2025 Chief complaint+Reason for visit Narrative* Chief [...] :29am Sacroiliitis January 17, 2025 10 :29am [facility] Work Phone: 1(957) 122-536006-23-2025 Chief complaint+Reason for visit Narrative * Chief [...] :29am Sacroiliitis January 17, 2025 10 :29am [facility] Work Phone: 1(150) 984-365606-23-2025 Evaluation note* Diagnosis Onset Date Resolution Status [...] 10:29am Sacroiliitis acute January 17, 2025 10:29am [facility] Work Phone: 1(203) 399-764005-17-2025 History of Present illness Narrative* Lynne Ni [...] visit. Either the patient or their legal hotel services sales representative has been informed of the [...] easures, may consider osteoporosis treatment if on buttermilk drier operator steroids/abnormal bmd, take vitamin D script [...] neurology/on metoprolol for POTs, avoid aggravating triggers, buttermilk drier operator pain recommendations per primary care provider/pain [...] neurology/on metoprolol for POTs, avoid aggravating triggers, buttermilk drier operator pain recommendations per primary care provider/pain [...] measures, may consider osteoporosis treatment if on buttermilk drier operator steroids/abnormal bmd, take vitamin D script [...] COVID-19 original vaccine, age 12+ yr, monovalent ([employer] - PURPLE TOP) 09/28/2020 10/19/2020 05/26/2021 COVID-19 vaccine, age 12+ yr ([employer] COMIRNATY) 02/23/2023 COVID-19 vaccine, age 12+ yr, bivalent ([employer]) 02/08/2022 Pneumovax no Flu shot no Tetanus [...] (33);NL cbc, cmp, negative hla b27; Outside [place] 06/2021 low vitamin D 16, vitamin b12-307;high [...] negative Sumaya's test, tinel's and phil tests [facility] JTS:no Tend. 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 reStart azathioprine [...] video & audio (virtual) or phone or [id number] patient care, completing clinical documentation, obtaining and/or [...] Workers' Compensation? No Do you need an finish filer? No [facility] MYCHART ZOOM MESSAGE Question 10/06/2024 [...] my health Strongly Agree documented in this encounterTri[facility] Instructions* Patient Instructions* Lynne Ni MD - [...] (200mg) daily with a meal Please see window repairer every 6-12months while on Hydroxychloroquine. azathioprine [...] your usual activities immediately. documented in this encounterTri[facility]05-16-2025 Telephone encounter Note * Telephone Encounter - Beatriz Sanchez LPN - 10/06/2024 1:46 PM EDT VM left that below message forwarded to her MC. Requested return call if unable to view message. [facility]05-16-2025 Miscellaneous Notes* Telephone Encounter - Beatriz Sanchez LPN - 10/06/2024 1:46 PM EDT AGUSTÍN left that below message forwarded to her MC. Requested return call if unable to view message. * Telephone Encounter - Lynne Ni MD - 10/06/2024 1:02 PM EDT Please Call patient if [address] note not read to review results/released to My Chart if tests completed at [facility]: Mildly glucose, one borderline inflammatory test- [...] accordingly. Lynne Ni MD documented in this encounterTri[facility]05-[facility]-2025 Telephone encounter Note * Telephone Encounter [...] above. Please process accordingly. Lynne Ni MD [facility]04-30-20[facility] Note [facility]04-29-2025 History of Present illness Narrative* Deborah Arroyo [facility] - 09/19/2024 10:00 AM EDT Patient Name [...] GENETIC TESTING: None. SOCIAL HISTORY: Lives in [place], [place] with her and daughter. 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 - Partner's ethnicity: not applicable. - No known -Saudi Arabian, Mediterranean, /Nicaraguan, Palestinian-Mosotho/Cajun, or Ashkenazi Restorationism ancestry unless noted above. - Parental consanguinity: [...] via the connective tissue disorder panel at [facility]] for Ariadna's daughter. Follow up will be [...] greater than 50% of which was spent ughb-pe-xgas counseling. This plan is being carried out per Dr. Lance's recommendations. Deborah Arroyo MS, [facility] Licensed Genetic Counselor [facility] CC: Dr. Last Lance CC: Ariadna Haley Via [employer] documented in this encounterTrihealth Mccullough-[facility]04-29-2025 NoteSelect [facility]04-29-2025 NoteSelect [facility] Specialty [facility]04-29-2025 History of Present illness Narrative* Ny Lance MD - 09/19/2024 7:46 AM EDT Images from the original note were not included. Department of Medical Genetics and Genomics OUTPATIENT NEW VISIT NOTE Recording using [employer] software for draft documentation of the visit was discussed with the patient/authorized hotel services sales representative; all questions welcomed and answered. Patient/authorized hotel services sales representative agreed to proceed Patient Name: Ariadna [...] has a history of using a palate it assistant. She reports delayed wound healing, possible hyperextensible [...] Gangrene - 02/04/2023 Steroid-Induced Osteoporosis - 02/04/2023 Custodial Current Use of Systemic Steroids - 02/04/2023 [...] subcutaneously one time a week. Per PCP dklmexxpoqRSUUE-yiwtja-lnexhnogg (BMX 1:1:1) 1:1:1 liqd Take 5 mL [...] OF ablation SOCIAL HISTORY: - Lives in [place], [place] with her and daughters. - Highest level of education: High school. 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 Paternal - . - No known -Saudi Arabian, Mediterranean, /Nicaraguan, Ashkenazi Restorationism, Palestinian-Mosotho/Cajun, or Maxwell ancestry unless noted above. - [...] encounter. The pedigree will be scanned into [employer]. This information was reviewed with thefamily and [...] Management For Physiotherapists by Katarina Reza (Eds.), [facility], 2003, ISBN [phone]; Examination and Treatment of a Patient with [...] symptoms when present, recommending follow-up with a government instructor. 2. Chronic pain syndrome (G89.4) Chronic joint [...] 87 minutes was spent with patient for csgr-cr-limt evaluation, discussion of genetic differential diagnoses, management plan, counseling, chart review, documentation and coordination of care. Portions of family history were obtained by Deborah Arroyo MS, [facility], which were reviewed with family and edited as necessary. All questions were answered to the best of my knowledge. Contact information has been provided to the patient. Ny Lance MD Staff Billboard Mechanic Department of Medical Genetics and Genomics (DM) [facility] Appointments: [facility] CC: Deborah Arroyo MS, [facility] Ariadna Haley (via MyChart) [address] [facility] [address] Lynne Ni MD CC to PCP via fax: Manuel Ferris [address] [place] [address] documented in this encounterTrihealth Mccullough-Hyde [facility] Hospital04-28-2025 Telephone encounter Note * Telephone Encounter - Lynne Ni MD - 09/18/2024 4:52 PM EDT Notify patient medication sent as requested Thank you. Patient's request for medication is as follows: Requested Prescriptions Pending Prescriptions Disp Refills belimumab (BENLYSTA) 200 mg/mL auto-injector 12 mL 3 Sig: Inject 200mg (1 pen) subcutaneously once weekly Prescription(s) as above. Please process accordingly. Lynne Ni MD [facility]04-28-2025 Miscellaneous Notes* Telephone Encounter - Lynne [...] MD * Telephone Encounter - Pamella Pichardo [facility] - 09/18/2024 10:52 AM EDT Patient needs refill of Benlysta Date of Ariadna Haley's last Rheumatology office visit: 03/18/24 Next appointment date: 10/07/24 Last labs: 08/29/24 Last TB test: TB Result Date Value Ref Range Status 03/23/2024 Negative Final Requested Prescriptions Pending Prescriptions Disp Refills belimumab (BENLYSTA) 200 mg/mL auto-injector 12 mL 3 Sig: Inject 200mg (1 pen) subcutaneously once weekly Patient prefers: [facility] Thank you! Maria Esther Pichardo, PharmD Clinical Pharmacist, [employer] [facility] ; Pool: [facility] Pool #: [id number] Electronically signed by Pamella Pichardo [facility] at 09/18/2024 10:54 AM EDT documented in this encounterTrihealth Mccullough-Hyde [facility] Hospital04-28-2025 Telephone encounter Note * Telephone Encounter - Macarena Sanchez - 09/18/2024 4:03 PM EDT Patient will be calling to reschedule her IV IG and benlysta. She needs to find a outside machinist and will call back with the dates that she will be available. [facility]04-28-2025 Miscellaneous Notes* Telephone Encounter - Macarena Sanchez - 09/18/2024 4:03 PM EDT Patient will be calling to reschedule her IV IG and benlysta. She needs to find a outside machinist and will call back with the dates that she will be available. documented in this encounterTrihealth Mccullough-Hyde [facility] Hospital04-28-2025 Telephone encounter Note * Telephone Encounter [...] (1 pen) subcutaneously once weekly Patient [facility]: [facility] Thank you! Maria Esther Pichardo, PharmD Clinical Pharmacist, [employer] [facility] ; Pool: [facility] Pool #: [id number] [facility]04-22-2025 Telephone encounter Note* Telephone Encounter - Karina Pino - 09/12/2024 2:35 PM EDT Patient has been scheduled at [facility]04-22-2025 Miscellaneous Notes* Telephone Encounter - Karina Pino - 09/12/2024 2:35 PM EDT Patient has been scheduled at [facility] * Telephone Encounter - Sherrie Cortes - [...] the below scheduling for the drug. Cesilia Hciks [facility] You25 minutes ago (11:20 AM) LS Please schedule her every 2 weeks for 3 doses, then every 4 weeks for Benlysta. Thanks, Cesilia Holman [facility] You27 minutes ago (11:18 AM) LS Christen [...] to Rheum provider. Anahi Becerril RN nurse senior account manager: patient would like to know if she [facility] 8 [facility] Basia Samuel RN documented in this encounterTrihealth Mccullough-[facility]04-22-2025 Telephone encounter Note * Telephone Encounter - Sherrie Cortes - 09/12/2024 2:13 PM EDT Patient called back and is now in agreement to schedule for Benlysta. Patient has been scheduled for Wednesday, 09/18. She will make her future appointments at this visit when she can work around her family arrangements. Spoke w/ T Wyatt regarding daughter recommendations and patient informed. Sherrie Cortes [facility]04-21-2025 Telephone encounter Note* Telephone Encounter - [...] below scheduling for the drug. Cesilia Hicks [facility] You25 minutes ago (11:20 AM) Please schedule her every 2 weeks for 3 doses, then every 4 weeks for Benlysta. Cesilia Vicente Laura [facility] You27 minutes ago (11:18 AM) LS Auth is submitted and pending - okay to set her up 7+ days out. When you call her ask her when she had her last SQ dose, per the provider okay to schedule the IV dose 1 week after her SQ dose. ThanksCesilia [facility]04-17-2025 Telephone encounter Note* Telephone Encounter - Lynne Ni MD - 09/07/2024 12:52 PM EDT Please start prior authorization for IV benlysta Signed therapy plan with loading doses if approved by insurance. May schedule 1week after last sq injection benlysta pen if approved. Thank you [facility]04-17-2025 Telephone encounter Note* Telephone Encounter - Enma Hamm RN - 09/07/2024 9:04 AM EDT Results discussed with pt. She is set for IVIG 10/04/24. She denies further questions needs or concerns at this time. Enma Hamm RN [facility]04-17-2025 Miscellaneous Notes* Telephone Encounter - Enma Hamm RN - 09/07/2024 9:04 AM EDT Results discussed with pt. She is set for IVIG 10/04/24. She denies further questions needs or concerns at this time. Enma Hamm RN documented in this encounterTrihealth Mccullough-[facility]04-16-2025 Evaluation note* Diagnosis Onset Date Resolution Status Admit Date Lumbosacral spondylosis acute A pril 2024 3:42pm Other chronic pain acute September 06, 2024 3:42pm Sacroiliitis acute September 06, 2024 3:42pm Lumbosacral spondylosis acute J une 2024 11:15am Other chronic pain acute October 232024 11:15am Sacroiliitis acute November 13 11:15am [facility] Work Phone: 1(978) 933-675804-16-2025 Evaluation note* Diagnosis Onset Date Resolution Status [...] 212024 9:03am Sacroiliitis acute November 30 9:03am [facility] Work Phone: 1(542) 135-925704-16-2025 Telephone encounter Note* Telephone Encounter - Basia Samuel RN - 09/06/2024 4:20 PM EDT Patient has requested to switch from Benlysta injections to infusions. Will forward to Rheum provider. Anahi Becerril RN nurse senior account manager: patient would like to know if she can bring her 8 year old to treatmentsin the summer. Basia Samuel RN [facility]04-16-2025 History of Present illness Narrative* DevenMarvelVaibhavMAURILIO.HOME HEALTH NURSE LICENSED PRACTICAL - 09/06/2024 9:00 AM EDT Images from the original note were not included. NAME: Ariadna Haley CLINIC NO.: [id number] DATE OF SERVICE: September 06, 2024 (Deven) [...] lower lip done 2 days ago at [facility] - awaiting results. B12 helps especially at [...] injections. Shefollows with multiple doctors including and lecturer in marketing, title i instructional assistant, helpdesk analyst and PCP. She has been told they [...] THREE TIMES A DAY^Disp: 135 tablet^Rfl: 1 dcywnnegaxSDQVJ-wxjqrp-eoattzbzi (BMX 1:1:1) 1:1:1 liqd^Take 5 mL by [...] (Crohn's [Other]) Mother . Vaibhav Carvalho APRN, LAB CLERK-C, [facility] Provided at: [place], [place] CC: Manuel Ferris MD [address] [facility] [address] documented in this encounterTrihealth Mccullough-[facility]04-16-2025 NoteSelect Medical Specialty [facility]04-14-2025 History of Present illness Narrative* Gordo Barfield MD - 09/04/2024 3:20 PM EDT Subjective Patient ID: Ariadna Haley is a 43 y.o. female who presents for Thyroid Nodule (Follow up ultrasound [facility] 08/24/24) Thyroid US shows a [id number] left inf pole TR4 nodule. Radiology notes [...] 03/05/2021 Hair loss 03/05/2021 Hyperlipidemia (CMS/HCC) 05/31/2014 [facility] 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 02/04/2023 Long-term use of high-risk medication 06/15/2022 Long-term use of Plaquenil 03/05/2021 LPRD (laryngopharyngeal reflux disease) 07/06/2023 Megaloblastic anemia due to vitamin B12 deficiency 03/04/2022 Myalgia 07/06/2023 Obesity, Class III, BMI 40-49.9 (morbid obesity) ([facility]) 09/07/2022 Obstructive sleep apnea syndrome 05/20/2022 Oral lesion 07/06/2023 Pain, hip 07/06/2023 Rash and nonspecific skin eruption 03/05/2021 Steroid-induced osteoporosis ([facility]) 02/04/2023 Somnolence, daytime 05/20/2022 Secondary osteoarthritis of multiple sites 03/05/2021 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 02/04/2023 Swelling of lymph nodes 03/05/2021 Vitamin D deficiency 03/06/2021 Vitamin B12 deficiency 05/31/2014 Pure hypercholesterolemia, unspecified ([facility]) 08/10/2023 Hoarse 08/10/2023 Thyroid nodule ([facility]) 08/10/2023 Shortness of breath 07/13/2023 Paroxysmal supraventricular tachycardia ([facility]) 07/13/2023 PAC (premature atrial contraction) 07/13/2023 Degenerative disc disease, lumbar 11/08/2023 Paresthesias 11/08/2023 Nipple discharge 11/15/2023 Irregular periods/menstrual cycles 11/15/2023 Facet arthritis of lumbar region 12/15/2023 Prediabetes 08/24/2023 C. difficile diarrhea 03/07/2024 Diarrhea 03/07/2024 Duct ectasia of breast 03/07/2024 Frequent infections 04/01/2024 GERD (gastroesophageal reflux disease) 03/07/2024 History of vitamin D deficiency 10/05/2023 Hypogammaglobulinemia ([facility]) 04/01/2024 Insulin resistance 03/07/2024 Lupus erythematosus 04/06/2024 Sacroiliitis ([facility]) 04/06/2024 Resolved Ambulatory Problems Diagnosis Date Noted No Resolved Ambulatory Problems Past Medical History: Diagnosis Date Cervical lymphadenopathy COVID-19 vaccine administered Difficulty walking Fatigue Fibromyalgia, primary History of removal of cyst 2012 HTN (hypertension) ([facility]) Hx of abnormal cervical Pap smear IgG [...] % gel ergocalciferol (Vitamin D2) 1.25 MG (90204 UT) capsule Take 50,000 Units by mouth [...] for more aggressive care documented in this encounterMoberly Regional Medical [id number] Telephone encounter Note* Telephone Encounter - Blank Kimball - 09/02/2024 10:28 AM EDT Called and spoke with patient, patient is scheduled for a VV on 10/07/24 at 8:00am. Patient stated will complete labs a walk in [facility]04-12-2025 Miscellaneous Notes* Telephone Encounter - Blank [...] diagnoses: Vitamin D deficiency documented in this encounterTrihealth Mccullough-Hyde [facility]04-11-2025 Telephone encounter Note * Telephone Encounter [...] above. Please process accordingly. Lynne Ni MD [facility]04-11-2025 Telephone encounter Note* Telephone Encounter - [...] Ni MD Assoc. diagnoses: Vitamin D deficiency [facility]04-07-2025 Telephone encounter Note* Telephone Encounter - Renea Schneider MA - 08/28/2024 11:04 AM EDT Do you want labs? Patient coming in Wednesday09/06/24 for follow up treatment. Thanks, Renea Schneider MA [facility]04-01-2025 Miscellaneous Notes* Telephone Encounter - Renea Schneider MA - 08/28/2024 11:04 AM EDT Do you want labs? Patient coming in Wednesday09/06/24 for follow up treatment. Thanks, Renea Schneider MA documented in this encounterTrihealth Mccullough-[facility]04-01-2025 Miscellaneous Notes* Telephone Encounter - Renea Schneider MA - 11/20/2024 12:00 PM EDT Patient coming in for treatment visit Wednesday11/29/24. Please add lab orders. thanks. Renea Schneider MA documented in this encounterTrihealth Mccullough-Hyde [facility]03-27-2025 NoteSelect [facility]03-18-2025 Telephone encounter Note* Telephone Encounter - Basia [...] and patient is aware. Basia Samuel RN [facility]03-18-2025 Miscellaneous Notes* Telephone Encounter - Basia [...] aware. Basia Samuel RN documented in this encounterTrihealth Mccullough-Hyde [facility]03-18-2025 NoteSelect [facility]03-18-2025 History of Present illness Narrative* Basia Samuel RN - 08/08/2024 9:03 AM EDT Patient states that she spoke with provider and she will defer IV iron for now, she is taking oral iron and will have labs rechecked in 1 month Basia Samuel RN documented in this encounterTrihealth Mccullough-[facility]03-05-2025 History of Present illness Narrative* Lois [...] being treated by rheumatology at the [facility] on steroids, Plaquenil and monoclonal antibody [...] , Rfl: ergocalciferol (Vitamin D-2) 1.25 MG (52806 UT) capsule, Take 1 capsule (50,000 Units) [...] exam, discussion and plan. documented in this [facility] Work Phone: 1(136) 548-519603-05-2025 Instructions* Patient Instructions* Aissatou aHnson RN - 07/26/2024 2:50 PM EST Please bring all medicines, vitamins, and herbal supplements with you when you come to the office. Prescriptions will not be filled unless you are compliant with your follow up appointments or have a follow up appointment scheduled as per instruction of your physician. Refills should be requested at the time of your visit. documented in this [facility] Work Phone: 1(133) 290-455603-04-2025 History of Present illness Narrative* Bernabe English [...] ointment bid. On Plaquenil and Benlysta from title i instructional assistant and started IVIG from systems designer. Follow up Diagnosis: Hidradenitis Location: thighs Last [...] given frequent flares of thrush. Start Nystatin 749364 unit suspension qid x 14 days. Recommended [...] not swallow it. Related Medications nystatin (Mycostatin) 647383 UNIT/ML suspension Take 4 mL (400,000 Units) [...] is needed. Instructed to follow up with COMMERCIAL ACCOUNT EXECUTIVE for further work up. Next Visit: 1 year documented in this encounterMoberly Regional Medical [id number] History of Present illness Narrative* Luna Emanuel [...] been reviewed prior to dispensing the medication. Wholesaler Assessment Patient confirmed: Yes Med/dose confirmed: Yes Supplies needed: No supplies needed Missed doses: No Copay amount: 0 Payment confirmed: Yes Delivery method: FedEx Signature required: Waived on patient request Delivery address: [address] [place] [address], [facility] [address] Delivery date: 07/27/24 Questions or concerns for the pharmacist?: No Did you have any side effects believed to be related to this medication, that resulted in hospitalization?: No Current Outpatient Medications on File Prior to Visit Medication Sig tnuftoeifnHQDIN-veipgj-knpiafjak (BMX 1:1:1) 1:1:1 liqd Take 5 mL [...] facility-administered medications on file prior to visit. [facility]INICAL ASSESS[facility] - INFLAMMATORY CONDITIONS [...] longer tolerated. Luna Emanuel documented in this encounterTrihealth Mccullough-[facility]de [facility]03-04-2025 NoteSelect Medical Specialty [facility]02-27-2025 NoteHNO ID: [id number] Author: ALHAJI HEAD, DO Service: ? Author Type: Physician Type: Progress Notes Filed: 07/21/2024 13:05 Note Text: VIRTUAL VISIT PROGRESS NOTE This is a virtual visit using [employer] Video Visit. It required patient-provider interaction for the medical decision making as documented below. I have communicated my name and active licensure. The patient's identity and physical location were verified at the time of this visit. Either the patient or their legal hotel services sales representative has been informed of the [...] of 18 Current Outpatient Medications Medication Sig qqfowazrozWZRFD-fvybew-yeaztxspj (BMX 1:1:1) 1:1:1 liqd Take 5 mL [...] WHILE ON* belimumab ( (more content not included)...[facility]02-27-2025 History of Present illness Narrative* Alhaji Head DO - 07/20/2024 11:41 AM EST VIRTUAL VISIT PROGRESS NOTE This is a virtual visit using [employer] Z[employer] Video Visit. It required patient- provider interaction for the medical decision making as documented below. I have communicated my name and active licensure. The patient's identity and physical location wereverified at the time of this visit. Either the patient or their legal hotel services sales representative has been informed of the [...] of 18 Current Outpatient Medications Medication Sig ouckkuydxzEBJDB-xngvfa-yseulmlmk (BMX 1:1:1) 1:1:1 liqd Take 5 mL [...] on the R. The patient or authorized hotel services sales representative has agreed to proceed with the [...] axillary nodule which is being followed by price lister. Through shared decision making with the patient, [...] DO July 21, 2024 documented in this encounterTrihealth Mccullough-[facility]02-26-20[place] [address] Pain Management Procedure Note Signed Patient: Ariadna Haley MR#: [id number] : 1980 Acct:[id number] Age/Sex: 43 / F Adm Date: Loc: Room: Type: [facility] Attending Dr: Adolfo Kang MD Copies [...] MD 07/19/24 1104 Signed By: 07/19/24 1134 [facility]02-19-2025 Instructions* Patient Instructions* Marky Barnes PA-C - 07/12/2024 2:33 PM EST Alginate therapy (Reflux Raft, Reflux Gourmet) documented in this encounterTrihealth Mccullough-Hyde [facility] Hospital02-19-2025 NoteSelect [facility]02-19-2025 History of Present illness Narrative* Marky Barnes PA-C - 07/12/2024 2:14 PM EST Images from the original note were not included. [facility] [place] [facility] NOTE CC: Ariadna Haley is a [...] Current medication(s): Current Outpatient Medications Medication Sig nrihcpgftgGHWME-rkvfyb-zmrofjcom (BMX 1:1:1) 1:1:1 liqd Take 5 mL [...] Level: 3 - Low documented in this encounterTrihealth Mccullough-Hyde [facility]02-17-2025 Evaluation note* Diagnosis Onset Date Resolution Status Admit Date Lumbosacral spondylosis acute F ebruary 2024 3:16pm Other chronic pain acute Februa ry 2024 3:16pm Sacroiliitis acute June 3:16pm [facility] Work Phone: 1(186) 276-201702-17-2025 Evaluation note* Diagnosis Onset Date Resolution Status Admit Date Lumbosacral spondylosis acute F ebruary 2024 3:16pm Other chronic pain acute Februa ry 2024 3:16pm Sacroiliitis acute June 3:16pm Lumbosacral spondylosis acute M 2024 3:40pm Other chronic pain acute July 31, 2024 3:40pm Sacroiliitis acute July 31, 2024 3:40pm [facility] Work Phone: 1(525) 427-192502-17-2025 Telephone encounter Note* Telephone Encounter - Krista Braswell MA - 07/10/2024 7:28 AM EST Pt was notified via . [facility]02-17-2025 Miscellaneous Notes* Telephone Encounter - Krista Fonseca MA - 07/10/2024 7:28 AM EST Pt was notified via . * Telephone Encounter - Lynne Ni MD - 07/09/2024 3:48 PM EST Please Call patient if MyChart note not read to review results/released to My Chart if tests completed at [facility]: Mildly high normal wbc, glucose, [...] accordingly. Lynne Ni MD documented in this encounterTrihealth Mccullough-Hyde [facility]02-16-2025 Telephone encounter Note * Telephone [...] above. Please process accordingly. Lynne Ni MD [facility]02-06-2025 History of Present illness Narrative* [...] been reviewed prior to dispensing the medication. Wholesaler Assessment Patient confirmed: Yes Med/dose confirmed: Yes Supplies needed: No supplies needed Missed doses: No Estimated days supply on hand: 1 Copay amount: 0 Payment confirmed: Yes Delivery method: FedEx Signature required: Waived on patient request Delivery address: [address] [place] [address] Delivery date: 07/05/24 Questions or concerns for [...] facility-administered medications on file prior to visit. [facility]ICAL ASSESS[facility] - INFLAMMATORY CONDITIONS [...] longer tolerated. Luna Emanuel documented in this encounterTrihealth Mccullough-[facility]de [facility]02-06-2025 NoteSelect [facility]01-31-2025 Telephone encounter Note* Telephone Encounter - Krista Fonseca MA - 06/23/2024 8:27 AM EST Pt has been notified via [employer]. [facility] [facility] Miscellaneous Notes* Telephone Encounter - Krista Fonseca MA - 06/23/2024 8:27 AM EST Pt has been notified via [employer]. * Telephone Encounter - Lynne Ni MD [...] accordingly. Lynne Ni MD documented in this encounterTrihealth [facility]01[facility] Telephone encounter Note * Telephone [...] above. Please process accordingly. Lynne Ni MD [facility]01-29-2025 Telephone encounter Note* Telephone Encounter - Sherrie Cortes - 06/21/2024 2:10 PM EST Thanks for the clarification! I didn't schedule the patient yet for Iron because of the question below so we are all good. Thank you! Sherrie Cortes [facility]01-29-2025 Miscellaneous Notes* Telephone Encounter - Shrerie Cortes - 06/21/2024 2:10 PM EST Thanks [...] we will recheck. thanks documented in this encounterTrihealth Mccull[facility]01-29-2025 Telephone encounter Note * Telephone [...] is aware you will call if needed. [facility]01-29-2025 Telephone encounter Note* Telephone Encounter - Vaibhav Carvalho APRN.CNP - 06/21/2024 1:07 PM EST Ok that is fine she can try oral iron Ferrous sulfate 325 mg every other day. Ok to keep her next appointment and we will recheck. thanks [facility]01-28-2025 Telephone encounter Note* Telephone Encounter - Sherrie Cortes - 06/20/2024 8:38 AM EST Left another message for patient. Sent MyChart to call back to schedule infusions when she's ready to schedule and provided phone number. Sherrie Cortes [facility]01-28-2025 Miscellaneous Notes* Telephone Encounter - [...] callback with any questions. documented in this encounterTrihealth Mccull[facility]01-24-2025 Telephone encounter Note * Telephone Encounter - Sherrie Cortes - 06/16/2024 3:32 PM EST Call placed to patient, no answer. Left detailed message to call back to schedule for Venofer. Sherrie Cortes [facility]01-24-2025 Telephone encounter Note* Telephone Encounter - Vaibhav Carvalho APRN.CNP - 06/16/2024 12:26 PM EST Called patient and left a message regarding iron infusions. I did inform patient that she is low oniron and we can replace with IV infusion. Will have the office call to schedule. Encouraged to callback with any questions. [facility]01-23-2025 Telephone encounter Note* Telephone Encounter [...] Pt had recent mammogram that was negative [facility] [id number] Miscellaneous Notes* Telephone Encounter - KELVIN Cabrera [...] mammogram that was negative documented in this encounterMoberly Regional Medical [id number] History of Present illness Narrative* Iraida Pate APRN.CNP - 06/14/2024 10:43 AM EST Glucose - SIBO CPT 79826 Hydrogen Breath Test Ariadna Torres Tera 1980 June 14, 2024 Referring Physician: Bandar Portillo NP Indication: NSG TEST INDICATIONS: Diarrhea R19.7, Abdominal Pressure R10.9 Weight: 275 lbs Location: [facility] Duration of Test: 2 hrs Hydrogen Methane [...] Test Results: negative Physician Signature: Iraida Pate APRN.HOME HEALTH NURSE LICENSED PRACTICAL documented in this encounterTrihealth Mccull[facility]01-21-2025 Progress note* [facility] - [...] 13, 2024 TIME: 10:29 AM PAGER/CONTACT #: [facility]01-21-2025 Miscellaneous Notes* Allied Health - [...] 10:29 AM PAGER/CONTACT #: documented in this encounterTrihealth Mccullough-Hy[facility]01-21-2025 [facility]01[facility] History of Present illness Narrative* Vaibhav Carvalho APRN.HOME HEALTH NURSE LICENSED PRACTICAL - 06/13/2024 9:07 AM EST Images from the original note were not included. NAME: Ariadna Haley [facility] NO.: [id number] DATE OF SERVICE: June 13, 2024 (Deven) [...] lower lip done 2 days ago at [facility] - awaiting results. B12 helps especially at [...] injections. Shefollows with multiple doctors including and lecturer in marketing, title i instructional assistant, helpdesk analyst and PCP. She has been told they [...] (Crohn's [Other]) Mother . Vaibhav Carvalho APRN, LAB CLERK-C, OCN Hematology and Oncology Services Provided at: [place], [place] CC: Manuel Ferris MD [address] [facility] [address] documented in this encounterTrihealth Mccull[facility]01-20-[address]25 [facility]01-20-2025 History of Present illness Narrative* Lee Friedman - 06/12/2024 2:31 PM EST CMN RECEIVED BY [employer] VIA FAX, COMPLETED, AND PLACED IN PROVIDER MAILBOX FOR SIGNATURE Lee Friedman Coordinator III [employer] COMPANY SENDING CMN: Josh SIGNED AND DATED CMN, FAXED TO DME & CONFIRMATION PAGE RECEIVED: 06.28.2024 documented in this encounterTrihealth Mccull[facility]01-20-2025 Telephone encounter Note * Telephone Encounter - Margret Cuenca MA - 06/12/2024 12:00 PM EST Patient has an OTV appointment on 06/13. Please place lab orders. Margret Cuenca MA [facility]01-20-2025 Miscellaneous Notes* Telephone Encounter - Margret Cuenca MA - 06/12/2024 12:00 PM EST Patient has an OTV appointment on 06/13. Please place lab orders. Margret Cuenca MA documented in this encounterTrihealth Mccull[facility]01-14-2025 History of Present illness Narrative* [...] been reviewed prior to dispensing the medication. Wholesaler Assessment Patient confirmed: Yes Med/dose confirmed: Yes Supplies needed: No supplies needed Missed doses: No Estimated days supply on hand: 1 Copay amount: 0 Payment confirmed: Yes Delivery method: FedEx Signature required: Waived on patient request Delivery address: [address] [place] [id number] Delivery date: 06/08/24 Questions or concerns for [...] facility-administered medications on file prior to visit. [facility] CLINICAL ASSESSMENT - INFLAMMATORY CONDITIONS [...] longer tolerated. Luna Emanuel documented in this encounterTrihealth Mccull[facility]01-14-2025 NoteSelect [facility]01-14-2025 History of Present illness Narrative* KELVIN Cabrera - 06/06/2024 11:00 AM EST Images from the original note were not included. Reason for Appointment: Patient ID: Ariadna Haley is a 43 y.o. female who presents for [facility] Visit Patient presents today for Annual [...] Ambulatory Problems Diagnosis Date Noted Autoimmune disease ([facility]) 06/01/2023 Fibromyalgia 06/01/2023 Autonomic dysfunction 06/01/2023 Dizziness [...] Cytomegalovirus infection (HCC) (CMS/HCC) 07/06/2023 Depression, recurrent (CMS/[facility]) 06/09/2023 Discoid lupus erythematosus (CMS/[facility]) 02/14/2022 Disturbance of skin sensation 07/06/2023 Elevated sed rate 03/05/2021 High total serum IgM 03/05/2021 Enthesopathy of hip region 07/06/2023 Essential hypertension (CMS/HCC) 06/09/2023 Excessive and frequent menstruation with irregular cycle 09/24/2022 Family history of Crohn's disease 03/05/2021 Hair loss 03/05/2021 Hyperlipidemia (CMS/HCC) 05/31/2014 [facility] 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 02/04/2023 Long-term use of high-risk medication 06/15/2022 Long-term use of Plaquenil 03/05/2021 LPRD (laryngopharyngeal reflux disease) 07/06/2023 Megaloblastic anemia due to vitamin B12 deficiency 03/04/2022 Myalgia 07/06/2023 Obesity, Class III, BMI 40-49.9 (morbid obesity) ([facility]) 09/07/2022 Obstructive sleep apnea syndrome 05/20/2022 Oral lesion 07/06/2023 Pain, hip 07/06/2023 Rash and nonspecific skin eruption 03/05/2021 Steroid-induced osteoporosis ([facility]/HCC) 02/04/2023 Somnolence, daytime 05/20/2022 Secondary osteoarthritis of [...] Chronic laryngopharyngitis COVID-19 vaccine administered x 2 (Neema) Difficulty walking Fatigue Fibromyalgia, primary GERD (gastroesophageal [...] behalf of: KELVIN Cabrera documented in this encounterMoberly Regional Medical [id number] [facility]12-23-2024 History of Present illness Narrative* Deisy Jaime LSW - 05/15/2024 9:09 AM EST Patient's name appears on the [facility] First Time Treatment Report for a non- oncology treatment. No psychosocial assessment is indicated. BILL Rosenberg Goals of Care Advance Directives are not on file. documented in this encounterTrihealth Mccullough-[facility]12-20-2024 History of Present illness Narrative* [...] been reviewed prior to dispensing the medication. Wholesaler Assessment Patient confirmed: Yes Med/dose confirmed: Yes Supplies needed: No supplies needed Missed doses: No Estimated days supply on hand: 1 Copay amount: 0 Payment confirmed: Yes Delivery method: FedEx Signature required: Waived on patient request Delivery address: [address] [place] [id number] Delivery date: 05/16/24 Questions or concerns for [...] facility-administered medications on file prior to visit. [facility]INICAL [facility]ESS[facility] - INFLAMMATORY CONDITIONS [...] longer tolerated. Luna Emanuel documented in this encounterTrihealth Mccullough-Hy[facility]12-20-2024 NoteSelect Medical Specialty [facility]12-04-2024 Nurse Note* Radha Schofield MA - 04/26/2024 9:32 AM EST Patient Identification confirmed: yes. Injection given and documented on JUL per provider order. Radha Schofield MA [facility]12-04-2024 Nurse Note* Radha Schofield MA - 04/26/2024 9:32 AM EST Patient Identification confirmed: yes. Injection given and documented on JUL per provider order. Radha Schofield MA documented in this encounterTrihealth Mccullough-[facility]11-22-2024 Telephone encounter Note * Telephone Encounter - Gay Barnett - 04/14/2024 12:11 PM EST Patient coming in for a sibo breath test on Wednesday and has been on keflex for 3 days and needs to be on for ten so she will need to reschedule [facility]11-22-2024 Miscellaneous Notes* Telephone Encounter - Gay Barnett - 04/14/2024 12:11 PM EST Patient coming in for a sibo breath test on Wednesday and has been on keflex for 3 days and needs to be on for ten so she will need to reschedule documented in this encounterTrihealth Mccull[facility]11-19-2024 NoteSelect [facility]11-18-2024 Miscellaneous Notes* Telephone Encounter - Sherrie Cortes [...] if Triage was involved? Please advise. Sherrie Crotes documented in this encounterTrihealth Mccullough-[facility]11-18-2024 Telephone encounter Note * Telephone Encounter - Sherrie Cortes - 04/10/2024 2:12 PM EST Patient requested this appointment be rescheduled for the end of April. She has been scheduled for 05/19, she is all set. Thank you! Sherrie Cortes [facility]11-18-2024 Telephone encounter Note* Telephone Encounter - Shantel Arce RPh - 04/10/2024 2:07 PM EST SUBQ products (eg, 20% [Cuvitru, Hizentra, Xembify]) or IM products (eg, 16% [GamaSTAN]) intravenously. It would depend upon insurance coverage and would be done as a retail prescription at designated insurance specialty pharmacy. Elpidio McKitrick, PharmD, BCOP [facility] Work Phone: [phone] Telephone encounter Note* Telephone Encounter - Enma [...] appt per pt request Enma Hamm RN [facility]11-18-2024 Telephone encounter Note* Telephone Encounter - Enma Hamm RN - 04/10/2024 12:54 PM EST Called to discuss with pt. She was researching online and found SCIG a weekly subq injection to give herself that is less dose, and has less side effects. Pharmacy/[facility]: please advise Enma Hamm RN [facility]11-18-2024 Telephone encounter Note* Telephone Encounter - Vera Najera MD - 04/10/2024 12:26 PM EST Really sorry - I don't recall the home infusion of IVIG - I think it is safer to give it to her in-house as IV so we can monitor infusion reactions. Sorry if I created a misunderstanding. [facility]11-18-2024 History of Present illness Narrative* Gordo Barfield [...] 03/05/2021 Hair loss 03/05/2021 Hyperlipidemia (CMS/HCC) 05/31/2014 [facility] 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 02/04/2023 Long-term use of high-risk medication 06/15/2022 Long-term use of Plaquenil 03/05/2021 LPRD (laryngopharyngeal reflux disease) 07/06/2023 Megaloblastic anemia due to vitamin B12 deficiency 03/04/2022 Myalgia 07/06/2023 Obesity, Class III, BMI 40-49.9 (morbid obesity) ([facility]) 09/07/2022 Obstructive sleep apnea syndrome 05/20/2022 Oral lesion 07/06/2023 Pain, hip 07/06/2023 Rash and nonspecific skin eruption 03/05/2021 Steroid-induced osteoporosis ([facility]) 02/04/2023 Somnolence, daytime 05/20/2022 Secondary osteoarthritis of multiple sites 03/05/2021 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 02/04/2023 Swelling of lymph nodes 03/05/2021 Vitamin D deficiency 03/06/2021 Vitamin B12 deficiency 05/31/2014 Pure hypercholesterolemia, unspecified (CMS/[facility]) 08/10/2023 Hoarse 08/10/2023 Thyroid nodule ([facility]) 08/10/2023 Shortness of breath 07/13/2023 Paroxysmal supraventricular tachycardia ([facility]) 07/13/2023 PAC (premature atrial contraction) 07/13/2023 Degenerative disc disease, lumbar 11/08/2023 Paresthesias 11/08/2023 Nipple discharge 11/15/2023 Irregular periods/menstrual cycles 11/15/2023 Facet arthritis of lumbar region 12/15/2023 Resolved Ambulatory Problems Diagnosis Date Noted No Resolved Ambulatory Problems Past Medical History: Diagnosis Date Cervical lymphadenopathy COVID-19 vaccine administered Difficulty walking Fatigue Fibromyalgia, primary GERD (gastroesophageal reflux disease) History of removal of cyst 2012 HTN (hypertension) ([facility]) Hx of abnormal cervical Pap smear Insulin [...] AREA NEEDED ergocalciferol (Vitamin D2) 1.25 MG (17249 UT) capsule Take 50,000 Units by mouth [...] referred from the [facility] documented in this encounterMoberly Regional Medical [id number] Telephone encounter Note* Telephone Encounter - Sherrie [...] Triage was involved? Please advise. Sherrie Cortes [facility]11-15-2024 NoteSelect [facility] Specialty [facility]11-15-2024 History of Present illness Narrative* Deisy Jaime LSW - 04/07/2024 9:30 AM EST Patient's name appears on the [facility] First Time Treatment List for a non- oncology treatment. No psychosocial assessment is indicated. BILL Rosenberg Goals of Care Advance Directives are not on file SIGNATURE: JUSTICE Rosenberg PATIENT NAME: Ariadna Haley DATE: April 07, 2024 TIME: 9:31 AM PAGER/CONTACT #: documented in this encounterTrihealth Mccullough-[facility]11-14-2024 Evaluation + Plan note* Assessment [...] her Raynaud's. All her questions were answered. [facility]11-14-2024 Miscellaneous Notes* Assessment & Plan Note - [...] her questions were answered. documented in this encounterCleveland Clinic Foundation11-14-2024 History of Present illness Narrative* Hayden Arciniega [...] Interpersonal Safety: Unknown (07/15/2023) Received from [facility] Fear of Current [...] Assessment and Plan: Problem List Rheumatoid arthritis ([facility]) Relevant Medications ibuprofen (ADVIL,MOTRIN) 200 mg tablet predniSONE (STERAPRED DS) 10 mg tablet pack Systemic lupus erythematosus ([facility]) - Primary Relevant Medications ibuprofen [...] orders for this visit: Systemic lupus erythematosus ([facility]) - Vas art doppler lwr bilat mult lev/PVR; Future Cold extremities - [facility] [place], [place] - Vas art doppler lwr bilat mult lev/PVR; Future Pain of lower extremity, unspecified laterality - [facility] [place] - Vas art doppler lwr bilat mult lev/PVR; Future Rheumatoid arthritis, involving unspecified site, unspecified whether rheumatoid factor present ([facility]) Current smoker 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 Hayden [...] you for your understanding. documented in this encounterCleveland Clinic [facility]11-14-2024 Instructions* Patient Instructions* Hayden Arciniega MD - 04/06/2024 9:40 AM EST Are You Ready To Kick The Habit? Free Tobacco Cessation Resources [facility] Services [facility] provide all employees with free tobacco cessation services that include: Counseling to understand nicotine addiction Education about medications that can help you successfully quit Assistance with developing a plan to quit Call to set up an individual appointment or find out when group classes will be held: [facility]: [phone] [facility]: [phone] [facility]: [phone] [facility]: [phone] Quit Smoking Action Plan and Resources [facility] offers an eight-week, online smoking cessation plan to all [facility] employees, regardless of whether [place] is your medical insurance provider. Go to www.[email or web address].org/employeewellness and click the Health Risk Assessment and Resources link to get started. In the Aidls6Cvletq menu, click Action Plans instead of Health Risk Assessment to access the Quit Smoking Action Plan. Additional smoking cessation resources are also available to all [facility] employees on the Etwvb9Ucgvcb web page at www.Livefyre.com/quitsmoking. [place] Tobacco Cessation Program If [place] is your medical insurance provider, there are more free resources available to you, including: No copays or deductibles on local tobacco cessation counseling services to help you quit Prescription assistance for tobacco cessation medications to help you quit For details about the tobacco cessation program available to [place] members, go to www.bentonAchieveIt [facility].Wisr (Search: Tobacco Cessation Program). [place] Tobacco Quit Line 3-614-HPXN-NOW ( ) is a toll-free, telephonic service that helps [place] residents quit smoking and using tobacco. It is staffed by experts who tailor a quit plan for you and provide you with advice. [place] Tobacco Quit Line 9-890-VLBG-NOW ( ) is a toll-free, telephonic service that helps [place] residents quit smoking and using tobacco. It is staffed by experts who tailor a quit plan for you and provide you with advice. Two weeks of nicotine replacement therapy may be provided at no charge, if needed. Additional Resources These national organizations also offer free information and resources to help you quit tobacco: [place] Cancer [employer]--www.cancer.org/healthy/stayawayfromtobacco [place] Heart Association--www.heart.org (Search: Quit Smoking) Centers for Disease Control and Prevention--www.cdc.gov/tobacco [place] Lung Association--www.lungusa.org documented in this encounterCleveland Clinic Foundation11-11-2024 Telephone encounter Note* Telephone Encounter - Marky Mike DO - 04/03/2024 9:36 AM EST Changed terbinafine to itraconazole at pt request. [facility] [id number] Miscellaneous Notes* Telephone Encounter - Marky Mike DO - 04/03/2024 9:36 AM EST Changed terbinafine to itraconazole at pt request. documented in this encounterMoberly Regional Medical [id number] Telephone encounter Note* Telephone Encounter - Lynne [...] above. Please process accordingly. Lynne Ni MD [facility]11-10-2024 Miscellaneous Notes* Telephone Encounter - [...] accordingly. Lynne Ni MD documented in this encounterTrihealth Mccullough-Hyde [facility]11-10-2024 History of Present illness Narrative* [...] with her immunosuppressive therapy. documented in this encounterMoberly Regional Medical CenterAotmoakhof41-50-0900 Instructions* Patient Instructions* Vera Najera MD - 04/01/2024 4:28 PM EST Obtain body fluid culture from [facility]. B12 shot today and every 4 weeks. Continue Folic acid. Frequent infections plan IVIG for hypogammaglobulinemia Start when approved. RTC 3 months repeat labs same day. IVIG same day. documented in this encounterTrihealth Mccullough-Hyde [facility]11-08-2024 NoteSelect Medical Specialty [facility]11-08-2024 History of Present illness Narrative* Ashly Castillo - 03/31/2024 12:29 PM EST CMN RECEIVED BY [employer] VIA FAX, COMPLETED, AND PLACED IN PROVIDER MAILBOX FOR SIGNATURE Ashly Castillo Internship II 03/31/2024 [employer] COMPANY SENDING CMN: JOSH SIGNED AND DATED GENOVEVA, FAXED TO DME & CONFIRMATION PAGE RECEIVED: 04/11/2024 documented in this encounterTrihealth Mccullough-[facility]11-07-2024 Telephone encounter Note * Telephone Encounter - Mae Elaine - 03/30/2024 8:01 AM EST Pt is scheduled and instructions were sent thru my chart. [facility]11-07-2024 Miscellaneous Notes* Telephone Encounter - [...] note were not included. documented in this encounterTrihealth Mccullough-Hyde [facility]11-06-2024 Telephone encounter Note * Telephone Encounter - Mae Elaine - 03/29/2024 9:02 AM EST Im for pt- saved time on 04/18 7:45 Also sent mychart msg. dm [facility]11-04-2024 NoteSelect [facility]11-04-2024 History of Present illness Narrative* Vera Najera MD - 03/27/2024 3:03 PM EST Images from the original note were not included. NAME: Ariadna Haley [facility] NO.: [id number] DATE OF SERVICE: March 27, 2024 (Marquis) Some elements in this clinic note that are critical to medical decision making have been carefully reviewed and included from a prior clinic note dated: December 27, 2023 (Liz) Referring Provider: Dr. Manuel Ferris Additional Clinicians involved in Ariadna Haley's care: VIRTUAL VISIT PROGRESS NOTE This is a virtual visit using Outcome Referrals Is Technician Video Call. It required patient- provider interaction for the medical decision making as documented below. I have communicated my name and active licensure. The patient's identity and physical location wereverified at the time of this visit. Either the patient or their legal hotel services sales representative has been informed of the [...] noted. PLAN: Obtain body fluid culture from [facility]. B12 shot today and every 4 [...] lower lip done 2 days ago at [facility] - awaiting results. B12 helps especially at [...] injections. Shefollows with multiple doctors including and lecturer in marketing, title i instructional assistant, helpdesk analyst and PCP. She has been told they [...] CPE Hematology and Oncology Services Provided at: [place], [place] CC: Manuel Ferris MD [address] [facility] [address] documented in this encounterTrihealth Mccullough-Hyde [facility]10-31-2024 History of Present illness Narrative* [...] Ambulatory Problems Diagnosis Date Noted Autoimmune disease ([facility]) 06/01/2023 Fibromyalgia 06/01/2023 Autonomic dysfunction 06/01/2023 Dizziness [...] Tobacco use disorder 07/06/2023 Cytomegalovirus infection (HCC) ([facility]) 07/06/2023 Depression, recurrent ([facility]) 06/09/2023 Discoid lupus erythematosus (CMS/HCC) 02/14/2022 Disturbance of skin sensation 07/06/2023 Elevated sed rate 03/05/2021 High total serum IgM 03/05/2021 Enthesopathy of hip region 07/06/2023 Essential hypertension (CMS/HCC) 06/09/2023 Excessive and frequent menstruation with irregular cycle 09/24/2022 Family history of Crohn's disease 03/05/2021 Hair loss 03/05/2021 Hyperlipidemia (CMS/HCC) 05/31/2014 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 Injection given and documented on JUL per provider order. Stacy Gutiérrez MA [facility]10-31-2024 Nurse Note* Stacy Gutiérrez MA - 03/23/2024 10:16 AM EDT Patient Identification confirmed: yes. Injection given and documented on JUL per provider order. Stacy Gutiérrez MA documented in this encounterTrihealth Mccullough-[facility]10-28-2024 Telephone encounter Note * Telephone Encounter - Mae Elaine - 03/20/2024 12:37 PM EDT Images from the original note were not included. [facility]10-26-2024 History of Present illness Narrative* [...] visit. Either the patient or their legal hotel services sales representative has been informed of the [...] neurology/on metoprolol for POTs, avoid aggravating triggers, buttermilk drier operator pain recommendations per primary care provider/pain [...] see ophthalmology, steroids/prednisone 10mg daily/ [facility]/try weaning off, see derm/?eval [...] Due for eye exam. Labs sent to [facility]/completed in 06/2021 (no results faxed to office, [...] COVID-19 original vaccine, age 12+ yr, monovalent ([employer] - PURPLE TOP) 09/28/2020 10/19/2020 05/26/2021 COVID-19 vaccine, age 12+ yr ([employer] COMIRNATY) 02/23/2023 COVID-19 vaccine, age 12+ yr, bivalent ([employer]) 02/08/2022 Pneumovax no Flu shot no Tetanus [...] (33);NL cbc, cmp, negative hla b27; Outside [place] 06/2021 low vitamin D 16, vitamin b12-307;high [...] systemic lupus erythematosus with other organ involvement ([facility]) (primary encounter diagnosis) M79.7 Fibromyalgia R76.8 CHRISTIAN positive Q79.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 Elevated sed rate E55.9 Vitamin D deficiency 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 M54.42, M54.41, G89.29 Chronic bilateral low back pain with bilateral sciatica M79.674, M79.675, G89.29 Chronic pain of toes of both feet Z79.899 Long-term use of high-risk medication Z79.52 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 Start [...] touching your toes, sit-ups, using row machine buttermilk drier operator pain recommendations per primary care provider/pain [...] video & audio (virtual) or phone or wttv-[id number] patient care, completing clinical documentation, obtaining and/or [...] Workers' Compensation? No Do you need an finish filer? No [facility] MYCHART ZOOM MESSAGE Question 03/16/2024 7:44 [...] Percentile (range: 0 - 100) 1 2 [facility] PROMIS CAT V1.0 - FATIGUE-28 DAYS [...] my health Strongly Agree documented in this encounterTrihealth Mccullough-[facility]10-26-2024 NoteSelect [facility]10-26-[facility] Instructions* Patient Instructions* Lynne Ni MD - [...] (200mg) daily with a meal Please see window repairer every 6-12months while on Hydroxychloroquine. azathioprine [...] touching your toes, sit-ups, using row machine buttermilk drier operator pain recommendations per primary care provider/pain [...] your usual activities immediately. documented in this encounterTrihealth Mccullough-Hyde [facility] Hospital10-25-2024 Telephone encounter Note * Telephone [...] above. Please process accordingly. Lynne Ni MD [facility]10-25-2024 Miscellaneous Notes* Telephone Encounter - [...] Department V[facility] SPEC EST [facility]18[facility]2024 9[facility] Last Ophthalmology Check for Plaquenil (Hydroxychloroquine) [...] Assoc. diagnoses: Pseudomonas infection documented in this encounterTrihealth Mccullough-Hyde Memorial Hospital10-25-2024 Telephone encounter Note * Telephone [...] VIDEO SPEC EST 03/18/2024 9:00 AM [facility] REJ Last Ophthalmology Check for Plaquenil (Hydroxychloroquine) [...] Alhaji Head DO Assoc. diagnoses: Pseudomonas infection [facility]10-24-2024 History of Present illness Narrative* [...] Ambulatory Problems Diagnosis Date Noted Autoimmune disease ([facility]) 06/01/2023 Fibromyalgia 06/01/2023 Autonomic dysfunction 06/01/2023 Dizziness [...] Tobacco use disorder 07/06/2023 Cytomegalovirus infection (HCC) ([facility]) 07/06/2023 Depression, recurrent ([facility]) 06/09/2023 Discoid lupus erythematosus ([facility]) 02/14/2022 Disturbance of skin sensation 07/06/2023 Elevated sed rate 03/05/2021 High total serum IgM 03/05/2021 Enthesopathy of hip region 07/06/2023 Essential hypertension ([facility]) 06/09/2023 Excessive and frequent menstruation with irregular cycle 09/24/2022 Family history of Crohn's disease 03/05/2021 Hair loss 03/05/2021 Hyperlipidemia ([facility]) 05/31/2014 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 02/04/2023 Long-term use of high-risk medication 06/15/2022 Long-term use of Plaquenil 03/05/2021 LPRD (laryngopharyngeal reflux disease) 07/06/2023 Megaloblastic anemia due to vitamin B12 deficiency 03/04/2022 Myalgia 07/06/2023 Obesity, Class III, BMI 40-49.9 (morbid obesity) ([facility]) 09/07/2022 Obstructive sleep apnea syndrome 05/20/2022 Oral [...] of removal of cyst 2012 HTN (hypertension) ([facility]) Hx of abnormal cervical Pap smear Insulin resistance Laryngopharyngeal reflux disease Lupus Numbness Oral thrush Prediabetes Sleep apnea Weakness of limb HISTORY PAST MEDICAL HISTORY SOCIAL HISTORY Past Medical History: Diagnosis Date Anxiety Cervical lymphadenopathy Chronic laryngopharyngitis COVID-19 vaccine administered x 2 (Neema) Difficulty walking Fatigue Fibromyalgia, primary GERD (gastroesophageal reflux disease) History of removal of cyst 2012 tailbone x2 HTN (hypertension) ([facility]) Hx of abnormal cervical Pap smear Hyperlipidemia ([facility]) Insulin resistance Laryngopharyngeal reflux disease Lupus Numbness [...] nursing note reviewed. Exam conducted with a exercise specialist present. Vitals: Estimated body mass index is [...] Disease with Dr. Kelsey and Specialist at [facility]. Patient voiced that Dr. Kelsey recommended surgery, but patient feels that maybe excessive. Specialist at [facility] suggested monitoring. Patient has had mammogram. Patient does not put anything on her breast.Ruled out [facility]'s Breast concerns. Discussed [place] [employer] at night and Vitamin E lotion. Patient voiced that her breast feel brambila and heavier. Discussed growth of breast and proper support. Breastare not hot nor warm to the touch. Patient to obtain bilateral breast ultrasound. Patient to followup with routine annual appointment and as needed. Documented by Alicia Christine LPN on behalf of: Luan Valdivia DO documented in this encounterMoberly Regional Medical [id number] NoteSelect Medical Specialty [facility]10-16-2024 NoteBELLFULTON [facility] Note Chief Complaint: New patient here to establish care. Ref from Gay Enciso CNP for hypertension. Former [facility] cardiology patient. Had echo a few weeks ago at [facility]. Says her BP is very low [...] past several months. 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 She has undergone a [...] on any stimulants including caffeinated beverages, alcohol, mwry-cur-byiaemi Sudafed etc. If her symptoms of palpitations persist, particular if she has lightheadedness or dizziness, head upright tilt table test may be reasonable to evaluate for possible dysautonomia's I discussed the side effects and risks of long-term steroid therapy and recommended she discuss with her title i instructional assistant weaning off soon as possible Given her morbid obesity, her current symptoms and comorbidities are likely related to excessive weight: I encouraged physical activity, attempts to lose weigh (more content not included)...[facility] 03-07-2024 NoteSelect Medical Specialty [facility]10-15-2024 History of Present illness Narrative* Lee Friedman - 03/07/2024 8:35 AM EDT CMN RECEIVED BY [employer] VIA FAX, COMPLETED, AND PLACED IN PROVIDER MAILBOX FOR SIGNATURE Lee Friedman Coordinator III 03.07.2024 [employer] COMPANY SENDING CMN: Josh SIGNED AND DATED CMN, FAXED TO [employer] & CONFIRMATION PAGE RECEIVED: 03.07.2024 documented in this encounterTrihealth Mccullough-[facility]10-01-2024 Telephone encounter Note * Telephone [...] 'too terrified to drive that far to [facility].' Further reviewed the reasoning behind the visit needing to be in-person and stated that I would have our home health scheduler reach out if she is willingto accept an in-person appt. PT requested that I review with our clinical team if this can be a VV before she schedules. I let her know I will do so and be in touch. She had no further questions at this time. Luda Vargas Genetic Counseling Attendant Honor [place] Additional: see [facility] for documentation of scheduling and cancellation with genetics in 2021 [facility]10-01-2024 Miscellaneous Notes* Telephone Encounter - [...] terrified to drive that far to [place].' Further reviewed the reasoning behind the visit needing to be in-person and stated that I would have our home health scheduler reach out if she is willingto accept an in-person appt. PT requested that I review with our clinical team if this can be a VV before she schedules. I let her know I will do so and be in touch. She had no further questions at this time. Luda Vargas Genetic Counseling Attendant [employer] Additional: see [employer] for documentation of scheduling and cancellation with genetics in 2021 documented in this encounterTrihealth Mccullough-Hyde [facility] Hospital09-30-2024 Nurse Note* Kenzie Shannon MA - 02/21/2024 11:13 AM EDT Patient Identification confirmed: yes. Injection given and documented on MAR per provider order. Kenzie Shannon MA [facility]09-30-2024 Nurse Note* Kenzie Shannon MA - 02/21/2024 11:13 AM EDT Patient Identification confirmed: yes. Injection given and documented on JUL per provider order. Kenzie Shannon MA documented in this encounterTrihealth Mccullough-Hyde Memorial Hospital09-27-2024 Telephone encounter Note * Telephone Encounter - Sherrie Jimenes - 02/18/2024 1:26 PM EDT Patient is calling the [employer] office requesting Dr. Ni to place a referral to genetics. Please advise. [facility]09-27-2024 Miscellaneous Notes* Telephone Encounter - Sherrie Jimenes - 02/18/2024 1:26 PM EDT Patient is calling the [place] office requesting Dr. Ni to place a referral to genetics. Please advise. documented in this encounterTrihealth Mccullough-Hyde [facility] Hospital09-24-2024 Telephone encounter Note * Telephone Encounter - Hansa Javed LPN - 02/15/2024 9:49 AM EDT PAP ORDER FAXED TO [facility] WITH DEMOGRAPHICS, OFFICE NOTES WITH CONFIRMATON NOTED. [facility]09-24-2024 Miscellaneous Notes* Telephone Encounter - Hansa Javed LPN - 02/15/2024 9:49 AM EDT PAP ORDER FAXED TO [facility] WITH DEMOGRAPHICS, OFFICE NOTES WITH CONFIRMATON NOTED. documented in this encounterTrihealth Mccullough-Hyde Memorial Hospital09-23-2024 History of Present illness Narrative* Elton (Oil And Gas Field Technician), Luda - 02/14/2024 2:32 PM EDT [facility] [...] been reviewed prior to dispensing the medication. Wholesaler Assessment Patient confirmed: Yes Med/dose confirmed: Yes Missed doses: No Estimated days supply on hand: 1 Next cycle/dose due: 02/17/24 Copay amount: 0 Payment confirmed: Yes Delivery method: FedEx Signature required: Waived on patient request Delivery address: [address] [place], [place] [address], [place] Delivery date: 02/17/24 Questions or concerns [...] facility-administered medications on file prior to visit. [facility] CLINICAL ASSESSMENT - INFLAMMATORY CONDITIONS [...] and/or no longer tolerated. Luda Vale CPhT [facility] [phone] documented in this encounterTrihealth Mccullough-Hyde Memorial Hospital09-23-2024 History of Present illness Narrative* Elton EpsteinOil And Gas Field TechnicianLuda Benz - 02/14/2024 2:26 PM EDT Benefits investigation was conducted, indicating that a re-authorization is required for [employer]. PA was initiated and pending review. Plan Name: Keesha Armstrong Balderrama: [id number] Luda Vale CPhT [facility] [phone] documented in this encounterTrihealth Mccullough-Hyde Memorial Hospital09-23-2024 Instructions* Patient Instructions* Lexus Heck APRN.HOME HEALTH NURSE LICENSED PRACTICAL - 02/14/2024 8:03 AM EDT Images from the original note were not included. Your most recent body mass index (BMI) that we have on record is 43.08 kg/m2. Obstructive sleep apnea (JOSE RAFAEL) worsens with an increase in weight; reduction in weight may improve or resolve your JOSE RAFAEL. Ifyou are not already seeking treatment, there are resources available at the [facility] such as a nutrition consultation or referral to weight management programs at our [facility] [place]. Please let us know if we can [...] deductible,co-payments, and out of pocket expenses. DME: [facility] [phone] - Remember to clean your mask and equipment regularly, as directed. - Avoid use of ozone construction estimator, SoClean devices, or UV cleaning devices - [...] the central scheduling system for the [facility] [place] at [phone]. [facility] now offers direct scheduling for patients to schedule appointments. Virtual visits are also available. Call the office at [phone], option #5 for questions. documented in this encounterTrihealth Mccullough-Hyde Memorial Hospital09-23-2024 History of Present illness Narrative* Lexus Heck APRN.CNP - 02/14/2024 8:00 AM EDT Images from the original note were not included. [facility] Virtual Visit Follow up/ Established patient visit Date of last visit : 07/27/2022 I have communicated my name and active licensure. The patient's identity and physical location wereverified at the time of this visit. Either the patient or their legal hotel services sales representative has been informed of the [...] : PAP therapy DME: Josh MOJICA fax: [phone] YUNIOR ph: [phone] PAP History: Current PAP settin-15 cm H2O. [...] are sorted in reverse-chronological order 04/12/2022 07/23/2022 Jasper Sleepiness Scale Score 4 (No clinically significant [...] - Follow up 12 months. Lexus Heck APRN.HOME HEALTH NURSE LICENSED PRACTICAL documented in this encounterTrihealth Mccullough-Hyde [facility]09-18-2024 History of Present illness Narrative* Zita Cuellar, CARISSA - 02/09/2024 8:00 AM EDT Images from the original note were not included. CHIEF COMPLAINT REASON FOR VISIT : leg pain HPI: Ariadna Haley is a 43 y.o. female who presents for [facility] audiovisit. She is at home. She [...] Chronic laryngopharyngitis COVID-19 vaccine administered x 2 (Neema) Difficulty walking Fatigue Fibromyalgia, primary GERD (gastroesophageal reflux disease) History of removal of cyst 2012 tailbone x2 HTN (hypertension) ([facility]) Hx of abnormal cervical Pap smear Hyperlipidemia ([facility]) Insulin resistance Laryngopharyngeal reflux disease Lupus ([facility]) Numbness Oral lesion Oral thrush Prediabetes Sleep [...] Depression: Not at risk (12/27/2023) Re[facility] from [facility] PHQ-2 PHQ-2 score: 1 REVIEW [...] patient, and coordinating care. documented in this encounterMoberly Regional Medical [id number] NoteHNO ID: [id number] Author: ALHAJI HEAD, DO Service: ? Author Type: Physician Type: Progress Notes Filed: 01/27/2024 16:54 Note Text: VIRTUAL VISIT PROGRESS NOTE This is a virtual visit using [employer] Video Visit. It required patient-provider interaction for the medical decision making as documented below. I have communicated my name and active licensure. The patient's identity and physical location were verified at the time of this visit. Either the patient or their legal hotel services sales representative has been informed of the [...] of green drainage. She saw her OB/ oil seal assembler. This was thought to be secondary to [...] SOB/WHEEZING, and NO DYSPHAG (more content not included)...[facility]09-05-2024 History of Present illness Narrative* Alhaji Head DO - 01/27/2024 10:10 AM EDT Images from the original note were not included. VIRTUAL VISIT PROGRESS NOTE This is a virtual visit using [employer] Video Visit. It required patient- provider interaction for the medical decision making as documented below. I have communicated my name and active licensure. The patient's identity and physical location wereverified at the time of this visit. Either the patient or their legal hotel services sales representative has been informed of the [...] of green drainage. She saw her OB/ oil seal assembler. This was thought to be secondary to [...] thrush Alhaji Head DO documented in this encounterTrihealth Mccullough-[facility]09-03-2024 Nurse Note* Margret Cuenca MA - 01/25/2024 11:30 AM EDT Patient Identification confirmed: yes. Injection given and documented on MAR per provider order. Margret Cuenca MA [facility]09-03-2024 Nurse Note* Margret Cuenca MA - 01/25/2024 11:30 AM EDT Patient Identification confirmed: yes. Injection given and documented on MAR per provider order. Margret Cuenca MA documented in this encounterTrihealth Mccullough-Hyde [facility] Hospital08-27-2024 History of Present illness Narrative* [...] outcomes. Aidee Quintanilla, RolandD Clinical Pharmacist, [employer] [facility] ; Pool: [facility] Pool #: [id number] Wholesaler Assessment Patient confirmed: Yes Med/dose confirmed: Yes Supplies needed: No supplies needed Missed doses: No Estimated days supply on hand: (At least 1 dose) Next cycle/dose due: 01/20/24 Copay amount: 0 Payment confirmed: Yes Delivery method: FedEx Signature required: Waived on patient request Delivery address: [address] [place] [address] Delivery date: 01/21/24 Questions or concerns for [...] facility-administered medications on file prior to visit. [facility] RX SPECIALTY CLINICAL ASSESSMENT - INFLAMMATORY [...] no longer tolerated. Arianne Mckinley CPhT, Inflammatory/Allergy [facility] [phone] documented in this encounterTrihealth Mccullough-[facility]de [facility]08-21-2024 Telephone encounter Note * Telephone Encounter - Krista Braswell MA - 01/12/2024 10:45 AM EDT Pt has been notified via [employer]. [facility]08-21-2024 Miscellaneous Notes* Telephone Encounter - Krista Fonseca MA - 01/12/2024 10:45 AM EDT Pt has been notified via [employer]. * Telephone Encounter - Lynne Ni MD [...] Assoc. 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 Please process accordingly. Lynne Ni MD [facility]08-21-2024 Telephone encounter Note* Telephone Encounter - Beatriz Sanchez BAG WASHER - 01/12/2024 7:25 AM EDT Images from the original note were not included. Most recent Rheumatology visit: 10/05/2023 (with Lynne iN) Last Bone Density on file: None on [...] Lynne Ni MD Assoc. diagnoses: Screening-pulmonary TB [facility]08-08-2024 Telephone encounter Note* Telephone Encounter - Krista Braswell MA - 12/30/2023 1:34 PM EDT Spoke to pt aware of results and recommendations. [facility]08-08-2024 Miscellaneous Notes* Telephone Encounter - [...] vitamin b12 every month documented in this encounterTrihealth Mccullough-Hyde [facility]08-08-2024 Telephone encounter Note * Telephone [...] likely reactive, continue vitamin b12 every month [facility]08-05-2024 Telephone encounter Note* Telephone Encounter - Enma Hamm RN - 12/27/2023 12:49 PM EDT Pt informed of MM message and denies any questions, needs or concerns at this time. Appointments verified. Enma Hamm RN [facility]08-05-2024 Miscellaneous Notes* Telephone Encounter - Enma Hamm RN - 12/27/2023 12:49 PM EDT Pt informed of MM message and denies any questions, needs or concerns at this time. Appointments verified. Enam Hamm RN * Telephone Encounter - Neda Hill PA-C - 12/27/2023 12:44 PM EDT Please call and inform the patient that I reviewed her [facility] records and there is no evidence of a blood clot and she does not need to be on blood thinners. Neda Hill PA-C documented in this encounterTrihealth Mccullough-[facility]08-05-2024 Telephone encounter Note * Telephone Encounter - Neda Hill PA-C - 12/27/2023 12:44 PM EDT Please call and inform the patient that I reviewed her [facility] records and there is no evidence of a blood clot and she does not need to be on blood thinners. Neda Hill PA-C [facility] Work Phone: [phone] Nurse Note* Margret Cuenca MA - 12/27/2023 11:44 AM EDT Patient Identification confirmed: yes. Injection given and documented on MAR per provider order. Margret Cuenca MA [facility]08-05-2024 Nurse Note* Margret Cuenca MA - 12/27/2023 11:44 AM EDT Patient Identification confirmed: yes. Injection given and documented on MAR per provider order. Margret Cuenca MA documented in this encounterTrihealth Mccullough-Hyde [facility]08-05-2024 History of Present illness Narrative* Neda Hill PA-C - 12/27/2023 11:30 AM EDT Images from the original note were not included. NAME: Ariadna Haley [facility] NO.: [id number] DATE OF SERVICE: December 27, 2023 (Liz) [...] labs 1 week before. Request records from [facility] from PE/elevated d-dimer Frequent infections and [...] lower lip done 2 days ago at [facility] - awaiting results. B12 helps especially at [...] injections. Shefollows with multiple doctors including and lecturer in marketing, title i instructional assistant, helpdesk analyst and PCP. She has been told they [...] which included preparing to see the patient, eeqp-cb-dffu patient care, completing clinical documentation, obtaining and/or reviewing separately obtained history, performing a medically appropriate examination, counseling and educating the pat ient/family/caregiver, ordering medications, tests, or procedures, communicating with other HCPs (not separately reported), independently interpreting results (not separately reported), communicatingresults to the patient/family/caregiver, and care coordination (not separately reported). Neda Hill PA-C Hematology and Oncology Services Provided at: [place], [place] CC: Manuel Ferris MD [address] [facility] [address] documented in this encounterTrihealth [facility]cc[facility]07-22-[facility] History of Present illness Narrative* Elton (Oil And [employer] Field Technician)Luda - 12/13/2023 11:44 AM EDT [facility] [...] laboratory parameters, disease state markers and outcomes. Wholesaler Assessment Patient confirmed: Yes Med/dose confirmed: Yes Missed doses: No Estimated days supply on hand: 1 Next cycle/dose due: 12/16/23 Copay amount: 0 Payment confirmed: Yes Delivery method: FedEx Signature required: Waived on patient request Delivery address: [address] [place] [address] Delivery date: 12/17/23 Questions or concerns for [...] facility-administered medications on file prior to visit. [facility]ICAL ASSESSMENT - INFLAMMATORY CONDITIONS V6: Assessment to use: Refill [facility] VACCINE INFORMATION [facility] TREATMENT PLAN INFORMATION Luda Vale CPhT [facility] [phone] documented in this encounterTrihealth Mccull[facility]07-08-2024 Nurse Note* Stacy Gutiérrez MA - 11/29/2023 1:47 PM EDT Patient Identification confirmed: yes. Injection given and documented on MAR per provider order. Stacy Gutiérrez MA [facility]07-08-2024 Nurse Note* Stacy Gutiérrez MA - 11/29/2023 1:47 PM EDT Patient Identification confirmed: yes. Injection given and documented on MAR per provider order. Stacy Gutiérrez MA documented in this encounterTrihealth Mccull[facility]07-05-2024 Telephone encounter Note * Telephone Encounter - Katherin Schneider RN - 11/26/2023 11:34 AM EDT Please sign pended script Maryam Schneider RN [facility]07-05-2024 Miscellaneous Notes* Telephone Encounter - Katherin Schneider RN - 11/26/2023 11:34 AM EDT Please sign pended script Maryam Schneider RN documented in this encounterTrihealth Mccull[facility]06-24-2024 History of Present illness Narrative* Dwight, Aidee, [facility] - 11/15/2023 1:00 PM EDT [facility] [...] laboratory parameters, disease state markers and outcomes. Wholesaler Assessment Patient confirmed: Yes Med/dose confirmed: Yes Missed doses: No Estimated days supply on hand: 1 Next cycle/dose due: 11/18/23 Copay amount: 0 Payment confirmed: Yes Delivery method: FedEx Signature required: Waived on patient request Delivery address: [address] [place] [address] Delivery date: 11/17/23 Questions or concerns for [...] facility-administered medications on file prior to visit. [facility] Visit Assessment - [...] Yes Aidee Quintanilla, PharmD Clinical Pharmacist, [employer] [facility] ; Pool: P [facility] Pool #: [id number] Electronically signed by Aidee Quintanilla [facility] at 11/15/2023 1:48 PM EDT documented in this encounterTrihealth Mccull[facility]06-20-2024 Telephone encounter Note * Telephone [...] above. Please process accordingly. Lynne Ni MD [facility]06-20-2024 Miscellaneous Notes* Telephone Encounter - [...] High total serum IgM documented in this encounterTrihealth Mccull[facility]06-20-2024 Telephone encounter Note * Telephone [...] vitamin B12 deficiency, High total serum IgM [facility]06-06-2024 Telephone encounter Note* Telephone Encounter - Karina Morales RN - 10/28/2023 1:33 PM EDT Pt read Immigreat Now message. [facility]06-06-2024 Miscellaneous Notes* Telephone Encounter - Karina Morales RN - 10/28/2023 1:33 PM EDT Pt read Immig[employer] Now message. * Telephone Encounter - Lynne Ni [...] soon! Warm regards, :) documented in this encounterTrihealth Mccull[facility]06-06-2024 Telephone encounter Note * Telephone [...] you feel better soon! Warm regards, :) [facility]06-05-20[facility] Nurse Note* Margret Cuenca MA - 10/27/2023 2:43 PM EDT Patient Identification confirmed: yes. Injection given and documented on MAR per provider order. Margret Cuenca MA [facility]06-05-2024 Nurse Note* Margret Cuenca MA - 10/27/2023 2:43 PM EDT Patient Identification confirmed: yes. Injection given and documented on MAR per provider order. Margret Cuenca MA documented in this encounterTrihealth Mccull[facility]05-14-2024 History of Present illness Narrative* Lynne [...] visit. Either the patient or their legal hotel services sales representative has been informed of the [...] COVID-19 original vaccine, age 12+ yr, monovalent ([employer] - PURPLE TOP) 09/28/2020 10/19/2020 05/26/2021 COVID-19 vaccine, age 12+ yr, 2022- season ([employer]) 02/23/2023 COVID-19 vaccine, age 12+ yr, bivalent ([employer]) 02/08/2022 Pneumovax no Flu shot no Tetanus [...] (33);NL cbc, cmp, negative hla b27; Outside [place] 06/2021 low vitamin D 16, vitamin b12-307;high [...] (200mg) daily with a meal Please see window repairer every 6-12months while on Hydroxychloroquine. Start [...] video & audio (virtual) or phone or busc-qz-zqfx patient care, completing clinical documentation, obtaining and/or [...] Workers' Compensation? No Do you need an finish filer? No [facility] MYCHART ZOOM MESSAGE Question 2023 11:04 [...] (range: 0 - 100) 2 2 3 [facility] PROMIS CAT V1.0 - FATIGUE-28 DAYS Question 2023 11:05 PM EDT - Filed by Patient 05/24/2023 8:33 PM EDT - Filed by Patient 04/26/2023 3:45 PM EDT - Filed by Patient PROMIS Fatigue T-Score (range: 10 - 90) 59 (mild) Abnormal 62 (moderate) Abnormal 72 (severe) Abnormal PROMIS Fatigue Percentile (range: 0 - 100) 18 12 1 [facility] PROMIS CAT V1.1-PAIN INTERFERENCE-28 DAYS Question 2023 11:06 PM EDT - Filed by Patient 05/24/2023 8:35 PM EDT - Filed by Patient 04/26/2023 3:47 PM EDT - Filed by Patient PROMIS Pain Interference T-Score (range: 10 - 90) (range: 10 - 90) 66 (moderate) Abnormal 70 (moderate) Abnormal 68 (moderate) Abnormal PROMIS Pain Interference Percentile (range: 0 - 100) 5 2 4 [facility] SLAQ QUESTIONNAIRE Question 2023 11:10 PM EDT [...] SLAQ Score (range: 0 - 47) 15 [facility] PROVIDER UNDERSTANDING CURRENT HEALTH RHEUMATOLOGY Question 2023 [...] 3 (WITHIN +/- 5) documented in this encounterTrihealth Mccull[facility]05-09-2024 Nurse Note* Renea Schneider MA - 09/30/2023 10:53 AM EDT Patient Identification confirmed: yes. Injection given and documented on JUL per provider order. Renea Schneider MA [facility]05-01-2024 Evaluation note* Author Ketty Mccall [facility] Authored September 22, 2023 2:55pm 42-year-old [...] switch omeprazole to pantoprazole and monitor symptoms [facility] Work Phone: 1(697) 609-648804-18-2024 Instructions* Patient Instructions* Vera Najera MD - 09/09/2023 4:47 PM EDT Follow up in 13 Weeks - labs 1 week before. B12 shot every 4 weeks. Continue Folic acid. documented in this encounterTrihealth Mccull[facility]04-18-2024 History of Present illness Narrative* Vera Najera MD - 09/09/2023 4:30 PM EDT NAME: Jose Carlosfrancisco javierAriadna CLINIC NO.: [id number] DATE OF SERVICE: September 09, 2023 (Marquis) Some elements in this clinic note that are critical to medical decision making have been carefully reviewed and included from a prior clinic note dated: June 10, 2023 (Marquis) Referring Provider: Dr. Manuel Ferris Additional Clinicians involved in Ariadna Haley's care: VIRTUAL VISIT PROGRESS NOTE This is a virtual visit using dynaTrace softwareer Video Call. It required patient- provider interaction for the medical decision making as documented below. I have communicated my name and active licensure. The patient's identity and physical location wereverified at the time of this visit. Either the patient or their legal hotel services sales representative has been informed of the [...] lower lip done 2 days ago at [facility] - awaiting results. B12 helps especially at [...] injections. Shefollows with multiple doctors including and lecturer in marketing, title i instructional assistant, helpdesk analyst and PCP. She has been told they [...] CPE Hematology and Oncology Services Provided at: [place], [place] CC: Manuel Ferris MD [address] [facility] [address] documented in this encounterTrihealth Mccull[facility]04-15-2024 Miscellaneous Notes* Telephone Encounter - Maynor Bryson MA - 09/06/2023 7:21 AM EDT patient has viewed the Imm[employer] Now message per [employer]. * Telephone Encounter - Lynne Ni MD - 09/04/2023 6:30 PM EDT Please Call patient if Bellabeat note not read to review results/released to My Chart if tests completed at [facility]: Improved/Borderline wbc and one inflammatory test- will [...] accordingly. Lynne Ni MD documented in this encounterTrihealth Mccull[facility]04-09-2024 Nurse Note* Margret Cuenca MA - 08/31/2023 10:35 AM EDT Patient Identification confirmed: yes. Injection given and documented on JUL per provider order. Margret Cuenca MA documented in this encounterTrihealth Mccull[facility]04-01-2024 Nurse Note* Renea Schneider MA - 09/30/2023 10:53 AM EDT Patient Identification confirmed: yes. Injection given and documented on MAR per provider order. Renea Schneider MA documented in this encounterTrihealth Mccull[facility]03-14-2024 Nurse Note* Margret Cuenca - 08/05/2023 11:16 AM EDT Patient Identification confirmed: yes. Injection given and documented on JUL per provider order. Margret Cuenca documented in this encounterTrihealth Mcc[facility]02-20-2024 Nurse Note* Margret Cuenca - 07/13/2023 12:01 PM EST Patient Identification confirmed: yes. Injection given and documented on JUL per provider order. Margret Cuenca documented in this encounterTrihealth Mccull[facility]02-20-2024 History of Present illness Narrative* [...] is being cared for at the [facility] utilizing steroids, Plaquenil and injectable medic ation(Benlystal). The patient record indicating having had cardiac catheterization in [place] 3 years ago which was normal. I have the report available for my review. [facility] [...] being treated by rheumatology at the [facility] on steroids, Plaquenil and monoclonal antibody [...] , Rfl: ergocalciferol (Vitamin D-2) 1.25 MG (07600 UT) capsule, Take 1 capsule (50,000 Units) [...] exam, discussion and plan. documented in this [facility] Work Phone: 1(786) 568-700602-20-2024 Instructions* Patient Instructions* Lila Tejeda LPN - [...] time of your visit. documented in this [facility] Work Phone: 1(854) 436-493902-13-2024 History of Present illness Narrative* Kade Richardson [...] , Rfl: ergocalciferol (Vitamin D2) 1.25 MG (27524 UT) capsule, Take 50,000 Units by mouth [...] Chronic laryngopharyngitis COVID-19 vaccine administered x 2 (Neema) History of removal of cyst 2013 tailbone [...] reflexes: Stu's absent. Ankle clonus absent. Coordination Kxbuwv-ht-pizs, rapid alternating movements and uqjl-qj-ulqa normal bilaterally without dysmetria. Gait Normal casual, toe, heel and tandem gait. Romberg is absent. Assessment/Plan Diagnoses and all orders for this visit: Autoimmune disease (CMS/[facility]) - Protein electrophoresis, serum; Future - Protein [...] Lyrica 100 mg TID. She is on mihohzhmtd34 mg once daily. Increase prednisone 10 mg BID for 10 days. documented in this [facility]01-17-2024 History of Present illness Narrative* Michelle Jasmine, DIRECTOR OF PRECLINICAL RESEARCH-HOME HEALTH NURSE LICENSED PRACTICAL - 06/09/2023 8:30 AM EST Ariadna Haley is a 42 y.o. female that presents to the office today for new patient evaluation asself referral for palpitations and elevated heart rates. She has a PMH of HTN, HLD, tachycardia, anemia, JOSE RAFAEL with CPAP compliance, lupus, autonomic dysfunction, arthritis, chronic back pain. She has undergone cardiac workup in the past in [place] as noted below. She also states that she follows withNeurology for possible POTS syndrome. Admits to daily tobacco use, 1 pack of cigarettes per day. Denies vaping, ETOH, recreational drugs. Admits to drinking approximately 1 pot of coffee per day. Denies daily exercise. 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 Family [...] , Rfl: ergocalciferol (Vitamin D-2) 1.25 MG (85654 UT) capsule, Take 1 capsule (50,000 Units) [...] to prepare this document. documented in this [facility] Work Phone: 1(409) 156-784701-03-2024 Instructions* Patient Instructions* Christie Phan MD - 05/26/2023 5:43 PM EST Images from the original note were not included. https://[employer].Wisr/tofu-bolognese/ https://nutritionstudies.org/zvq-dv-bautdmepn-wtnegkyt-vl-zuvqk-x-ljken-xehh-randee vr-fhnrn-zczuxygdl/ https://www.Regalos [employer] Amigos/blog/plantbasedkids https://Timely Network/jnwzb-uitjr-qgex-for-kids/ https://[employer]/pwg-cz-rraxbnbfro-mmdd-jokj-zx-d-ifhbe-dqqro-diet/ WHAT TO EAT? Breakfast: Overnight Oats Base ingredients: 1/3 cup rolled oats, 1/3 cup plain almond milk, 1tsp kyle seeds. Optional add-ins: cinnamon, flax seeds, honey or maple syrup, nut butter, chopped nuts. Toppings: Any fresh fruit chopped. Mix together and place in refrigerator. Can make 5 at a time for the whole week. Homemade fresh oatmeal. Can also make in the crockpot. Burmese muffin/almond butter topped with fresh berries Burmese muffin, cooked egg/egg white, tomato, thin slice anguillan cheese Fresh berries, hard boiled egg, whole wheat toast Plain yogurt topped with berries, unsalted nuts, drizzle of honey Whole grain toast/Burmese muffin topped with mashed avocado and tomatoes [...] grain rice. Make your own bowls - Russian/Maldivian/ theme [place] with Zoodles (spiralized vegetable noodles). Roasted vegetable wraps Alter traditional recipes to reflect HIGH QUALITY ingredients in the right QUANTITIES. Snacks - portion controlled: Raw veggies (can have with hummus, mashed avocado, salsa). Unsalted nuts Fruit (1 serving). (optional side of peanut butter) Air pop popcorn [place] and low fat anguillan cheese rolled up [...] baked potato, sprouted grain bread, chick peas https://www.[employer] Biosystems.Wisr/article/4659634/ktylqghwcchhn-hnas-fbwz-for-beginners / https://www.[employer].Wisr/category/4274/ceefepmnxvupt-niia-uctneo/ https://www.[employer].Wisr/category/4300/ufkqobzkgbxns-ndhy-ygfr-plans/ My current favorite cookbooks are documented in this encounterTrihealth Mcc[facility]01-03-2024 History of Present illness Narrative* Christie Phan MD - 05/26/2023 5:00 PM EST Images from the original note were not included. [facility] Follow-Up Appointment [...] the date of the service which included acgu-ny-rvvl patient care, completing clinical documentation, performing a medically appropriate examination, counseling and educating the patient/family/caregiver, and ordering medications, tests, or procedures. Christie Phan MD, MA, [facility] Lifestyle Medicine Specialist documented in this encounterTrihealth Mccull[facility]12-04-2023 Miscellaneous Notes* Telephone Encounter - Renate Lawrence MA - 04/26/2023 5:26 PM EST Medication pending with new pharmacy information. documented in this encounterTrihealth Mccull[facility]12-04-2023 History of Present illness Narrative* Christie Phan MD - 04/26/2023 4:15 PM EST Images from the original note were not included. [facility] Virtual Follow-Up [...] the date of the service which included esmz-hk-umry patient care, completing clinical documentation, performing a medically appropriate examination, counseling and educating the patient/family/caregiver, and ordering medications, tests, or procedures. I have communicated my name and active licensure. The patient's identity and physical location wereverified at the time of this visit. Either the patient or their legal hotel services sales representative has been informed of the risks and benefits of -- and alternatives to -- treatment through a remote evaluation andconsents to proceed with the evaluation remotely. Christie Phan MD, MA, [facility] Lifestyle Medicine Specialist documented in this encounterTrihealth Mcc[facility]12-04-2023 Nurse Note* Renate Lawrence MA - 04/26/2023 2:46 PM EST Spoke to Ariadna Haley, confirmed patient is registered on Bellabeat and is prepared for their appointment. Confirmed the patient has updated medications, allergies, and questionnaires via Bellabeat. Informed patient if there is an issue with the connection, provider will send the patient a secure link. If provider is running late, patient should remain connected to the visit. Patient verbalized understanding. documented in this encounterTrihealth Mccull[facility]11-30-2023 Miscellaneous Notes* Telephone Encounter - Enma Hmam RN - 04/22/2023 3:48 PM EST Pt called for Iron results; possible need for transfusion. Pt aware no need for iron infusion at this time. Enma Hamm RN documented in this encounterTrihealth Mccullough-[facility]11-24-2023 History of Present illness Narrative* Kenzie Shannon - 04/16/2023 10:55 AM EST Patient Identification confirmed: yes. Injection given and documented on JUL per provider order. Kenzie Shannon documented in this encounterTrihealth Mccull[facility]10-27-2023 History of Present illness Narrative* Kenzie Shannon - 03/19/2023 11:06 AM EDT Patient Identification confirmed: yes. Injection given and documented on JUL per provider order. Kenzie Shannon documented in this encounterTrihealth Mccull[facility]10-24-2023 History of Present illness Narrative* Marija Ziegler - 03/16/2023 10:13 AM EDT CMN RECEIVED BY [employer] VIA FAX, COMPLETED, AND PLACED IN PROVIDER MAILBOX FOR SIGNATURE On 2022 By Marija Ziegler [employer]. [employer] SENDING CMN: JOSH SIGNED AND DATED CMN, FAXED TO DME & CONFIRMATION PAGE RECEIVED: 03.24.23 documented in this encounterTrihealth Mccullough-[facility]10-19-2023 History of Present illness Narrative* [...] LPN In Department: RHEUMATOLOGY documented in this [facility]10-18-2023 Miscellaneous Notes* Telephone Encounter - Christie Phan MD - 03/10/2023 2:18 PM EDT Spoke with patient. We stopped her trulicity because of side effects. She only took the cymbalta for a week. She will restart and we will see how she is doing in 2 months. Have also ordered insulin labs to check for insulin resistance. documented in this encounterTrihealth Mccull[facility]10-09-2023 Miscellaneous Notes* Telephone Encounter - Lynne Ni MD - 03/01/2023 3:27 PM EDT For chart: Eye exam 02/26/23 no ocular complication related to medication. * Telephone Encounter - Beatriz Sanchez LPN - 03/01/2023 2:38 PM EDT Received eye exam from [facility] Placed on your desk for review. documented in this encounterTrihealth Mccullough-[facility]09-29-2023 Nurse Note* Radha Kebede MA - 02/19/2023 11:48 AM EDT Patient Identification confirmed: yes. Injection given and documented on JUL per provider order. Radha Schofield MA documented in this encounterTrihealth Mccull[facility]09-29-2023 Instructions* Patient Instructions* Vera Najera MD - 02/19/2023 11:40 AM EDT B12 shot today and every 4 weeks. Continue Folic acid. Follow up in 8 Weeks - labs 1 week before. documented in this [facility]09-29-2023 History of Present illness Narrative* Vera Najera MD - 02/19/2023 11:32 AM EDT Images from the original note were not included. AMBULATORY TELEPHONE VISIT Ariadna Haley has consented to this telephone encounter. Persons Present: Patient and myself Chief Complaint/Reason: Anemia; To review recent blood work. HPI: Total Time Spent: 21 minutes Rebekah Rojas APRN.HOME HEALTH NURSE LICENSED PRACTICAL NAME: Ariadna Haley CLINIC NO.: [id number] DATE OF SERVICE: February 19, 2023 (chyna) [...] lower lip done 2 days ago at [facility] - awaiting results. B12 helps especially at [...] injections. Shefollows with multiple doctors including and lecturer in marketing, title i instructional assistant, helpdesk analyst and PCP. She has been told they [...] but decreasing. Initial Visit, March 04, 2022: rAiadna Haley presents today Hematology and Oncology evaluation. [...] which included preparing to see the patient, klsk-hd-oage patient care, completing clinical documentation, performing a medically appropriate examination, counseling and educating the patient/family/caregiver, ordering medications, tests, or p rocedures, and independently interpreting results (not separately reported). Vera Najera MD, CPE Hematology and Oncology Services Provided at: [place], [place] CC: Manuel Ferris MD [address] [facility] [address] documented in this encounterTrihealth Mcc[facility]09-26-2023 Miscellaneous Notes* Telephone Encounter - [...] Department RAYRAY INJECTION TEACHING 03/11/2023 7:30 AM [facility] MEG VIDEO SPEC EST 08/12/2023 9:00 AM [facility] Last Ophthalmology Check for [...] diagnoses: Vitamin D deficiency documented in this encounterTrihealth Mccull[facility]09-18-2023 Miscellaneous Notes* Telephone Encounter - Mirela Carlos - 02/08/2023 11:12 AM EDT Spoke with patient Will get labs done when she does labs in Dec for Dre/Onc Mailed orders for DXA to pt so [facility] Pre cert Benlyst Scheduled [...] accordingly. Lynne Ni MD documented in this encounterTrihealth Mccull[facility]09-14-2023 History of Present illness Narrative* Carlene Rendon - 02/04/2023 9:31 AM EDT [facility] received prescription(s) for Benlysta from Dr. Ni. Benefits investigation was conducted, indicating that a prior authorization is required by patients plan with [facility]. Encounter will be updated once prior authorization has been submitted by [facility]. [facility] P: [phone] F: [phone] documented in this encounterTrihealth Mccull[facility]09-14-2023 History of Present illness Narrative* [...] visit. Either the patient or their legal hotel services sales representative has been informed of the [...] Due for eye exam. Labs sent to [facility]/completed in 06/2021 (no results faxed to office, [...] COVID-19 original vaccine, age 12+ yr, monovalent ([employer] - PURPLE TOP) 09/28/2020 10/19/2020 05/26/2021 COVID-19 vaccine, age 12+ yr, bivalent ([employer]) 02/08/2022 Pneumovax no Flu shot no Tetanus [...] (33);NL cbc, cmp, negative hla b27; Outside [place] 06/2021 low vitamin D 16, vitamin b12-307;high [...] rate M25.531, M25.532 Bilateral wrist pain Z79.52 [facility] 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 M81.8, T38.0X5A [...] patient voiced understanding. RECOMMENDATION/PLAN: [facility] Apruve on 02/04/23 DXA-AXIAL SKELETON DXA-FOREARM SKELETON Reviewed [...] (200mg) daily with a meal Please see window repairer every 6-12months while on Hydroxychloroquine. Start [...] touching your toes, sit-ups, using row machine buttermilk drier operator pain recommendations per primary care provider/pain [...] video & audio (virtual) or phone or fejc-xi-lree patient care, completing clinical documentation, obtaining and/or [...] cc Gay Enciso CNP;Dr.Douglas Sai Ferris MD [facility] AMBULATORY VISIT INTAKE QUESTIONNAIRE Question 02/02/2023 [...] Workers' Compensation? No Do you need an finish filer? No [facility] MYCHART ZOOM MESSAGE Question 02/02/2023 10:32 [...] of Right Forearm or Lower Left Leg. [facility] ADA – ADA PROMIS 10 ADULT SHORT FORM V1.0 GLOBAL [...] < or = 5) documented in this encounterTrihealth Mcc[facility]09-14-2023 Instructions* Patient Instructions* Lynne Ni [...] (200mg) daily with a meal Please see window repairer every 6-12months while on Hydroxychloroquine. azathioprine [...] your usual activities immediately. documented in this encounterTrihealth Mccull[facility]09-05-2023 Miscellaneous Notes* Telephone Encounter - Maynor Bryson MA - 01/26/2023 7:46 AM EDT patient has viewed the [employer] message per [employer]. * Telephone Encounter - Lynne Ni MD [...] accordingly. Lynne Ni MD documented in this encounterTrihealth Mccull[facility]09-01-2023 Nurse Note* Radha Kebede MA - 01/22/2023 12:17 PM EDT Patient Identification confirmed: yes. Injection given and documented on JUL per provider order. Radha Schofield MA documented in this encounterTrihealth Mccull[facility]08-22-2023 Miscellaneous Notes* Telephone Encounter - [...] above prescription(s) to electronically send to [facility] pharmacy. Milagro Mendiola MA documented in this encounterTrihealth Mccull[facility]08-11-2023 History of Present illness Narrative* Misty Nelson MD - 01/01/2023 10:51 AM EDT VIRTUAL VISIT PROGRESS NOTE This is a virtual visit using Bellabeat video visit. It required patient-provider interaction for themedical decision making as documented below. I have communicated my name and active licensure. The patient's identity and physical location wereverified at the time of this visit. Either the patient or their legal hotel services sales representative has been informed of the [...] otitis or sinusitis No pneumonia She sees title i instructional assistant and was diagnosed with lupus She is on Plaquenil, azathioprine Prednisone 10mg once daily for the past year; every few months she gets treated with higher doses of prednisone for flares of her symptoms The medications seem to help the body aches She saw the systems designer Treated with B12 and folic acid We [...] Patient Instructions on file for this visit. Msity Nelson MD documented in this encounterTrihealth Mccull[facility]07-28-2023 Miscellaneous Notes* Telephone Encounter - Rebekah Rojas APRN.HOME HEALTH NURSE LICENSED PRACTICAL - 12/18/2022 10:48 AM EDT Spoke with patient this morning, 12/18/2022. Rebekah Rojas APRN.TRUE * Telephone Encounter - Lidia Argueta RN - 12/18/2022 9:31 AM EDT Pt called contract preparer service last evening stating she was suppose to have a phone call with Rebekah at 330 and never received a call. Pt is still waiting (536 pm 12/17/22). Please advise Lidia Argueta RN documented in this encounterTrihealth Mccullough-[facility]07-28-2023 History of Present illness Narrative* [...] Rojas APRN.CNP NAME: Ariadna Haley CLINIC NO.: [id number] DATE OF SERVICE: October 22, 2022 ([place]) [...] lower lip done 2 days ago at [facility] - awaiting results. B12 helps especially at [...] injections. Shefollows with multiple doctors including and lecturer in marketing, title i instructional assistant, helpdesk analyst and PCP. She has been told they [...] which included preparing to see the patient, hbuz-tz-wjam patient care, completing clinical documentation, performing a medically appropriate examination, counseling and educating the patient/family/caregiver, ordering medications, tests, or p rocedures, and independently interpreting results (not separately reported). Vera Najera MD, CPE Hematology and Oncology Services Provided at: [place], [place] CC: Maneul Ferris MD [address] [facility] [address] documented in this encounterTrihealth Mccull[facility]07-26-2023 Miscellaneous Notes* Telephone Encounter - Pamella Bettencourt RN - 12/16/2022 1:14 PM EDT Pt notified and verbalizes understanding. Clerical: Please change tomorrow's appointment to a phone visit at the end of Rebekah's day. Preferred number is [phone]. In addition, pt will be in next [...] schedule? Pamella Bettencourt RN documented in this encounterTrihealth Mccull[facility]07-23-2023 Miscellaneous Notes* Telephone Encounter - [...] advise Enma Hamm RN documented in this encounterTrihealth Mccull[facility]07-04-2023 Miscellaneous Notes* Telephone Encounter - [...] accordingly. Lynne Ni MD documented in this [facility]06-29-2023 Nurse Note* Margret Cuenca - 11/19/2022 11:01 AM EDT Patient Identification confirmed: yes. Injection given and documented on JUL per provider order. Margret Cuenca documented in this [facility]06-01-2023 Nurse Note* Stacy Gutiérrez Ma - 10/22/2022 11:50 AM EDT Patient Identification confirmed: yes. Injection given and documented on JUL per provider order. Stacy Gutiérrez Ma documented in this [facility]06-01-2023 Instructions* Patient Instructions* Vera Najera MD - 10/22/2022 11:43 AM EDT B12 Shot today and every 4 weeks. Continue Folic acid. Follow up in 8 Weeks - labs 1 week before. documented in this [facility]06-01-2023 History of Present illness Narrative* Vera Najera MD - 10/22/2022 11:35 AM EDT Images from the original note were not included. NAME: Ariadna Haley CLINIC NO.: [id number] DATE OF SERVICE: October 22, 2022 ([place]) [...] lower lip done 2 days ago at [facility] - awaiting results. B12 helps especially at [...] injections. Shefollows with multiple doctors including and lecturer in marketing, title i instructional assistant, helpdesk analyst and PCP. She has been told they [...] which included preparing to see the patient, lmxz-ad-bkpg patient care, completing clinical documentation, performing a medically appropriate examination, counseling and educating the patient/family/caregiver, ordering medications, tests, or p rocedures, and independently interpreting results (not separately reported). Vera Najera MD, CPE Hematology and Oncology Services Provided at: [place], [place] CC: Manuel Ferris MD [address] [facility] [address] documented in this encounterTrihealth Mccull[facility]05-04-2023 Nurse Note* Stacy Gutiérrez Ma - 09/24/2022 10:22 AM EDT Patient Identification confirmed: yes. Injection given and documented on JUL per provider order. Stacy Gutiérrez Ma documented in this encounterTrihealth Mccull[facility]04-18-2023 Miscellaneous Notes* Telephone Encounter - Stacy Hernandez - 09/08/2022 2:27 PM EDT Pharmacy-Reviewed Medication History Patient Name:Jim Haley : 1980 Patient Contact Attempt: First attempt Adherence Packing Program Accepted? No, patient does not wish to participate. Patient is not eligible for adherence packaging because PCP is not within [facility]. Patient wishes to continue at [facility] since medication bottles will look the same and then she can pick-up the medications when she needs them. Stacy Hernandez September 08, 2022 2:28 PM [facility] [phone] documented in this encounterTrihealth Mccull[facility]04-17-2023 History of Present illness Narrative* Christie Phan MD - 09/07/2022 2:00 PM EDT Images from the original note were not included. [facility] Virtual Follow-Up [...] which included preparing to see the patient, foia-ff-wzvl patient care, completing clinical documentation, performing a medically appropriate examination, counseling and educating the patient/family/caregiver, ordering medications, tests, or p rocedures, and communicating with other HCPs (not separately reported). I have communicated my name and active licensure. The patient's identity and physical location wereverified at the time of this visit. Either the patient or their legal hotel services sales representative has been informed of the risks and benefits of -- and alternatives to -- treatment through a remote evaluation andconsents to proceed with the evaluation remotely. Christie Phan MD, MA, [facility] Lifestyle Medicine Specialist documented in this encounterTrihealth Mccull[facility]04-17-2023 Nurse Note* Milagro Mendiola MA - 09/07/2022 2:00 PM EDT Called pt to do intake for video visit pt unavailable lft vm msg sent my chart. Milagro Mendiola MA documented in this encounterTrihealth Mccull[facility]04-10-2023 Miscellaneous Notes* Telephone Encounter - Shantel Higgins MA - 08/31/2022 8:38 AM EDT called [facility] pharmacy - pharmacy had 1 refill remaining no action needed from our office documented in this [facility]04-06-2023 Nurse Note* Stacy Gutiérrez Ma - 08/27/2022 10:31 AM EDT Patient Identification confirmed: yes. Injection given and documented on JUL per provider order. Stacy Gutiérrez Ma documented in this encounterTrihealth Mccull[facility]04-06-2023 History of Present illness Narrative* Rebekah Rojas APRN.HOME HEALTH NURSE LICENSED PRACTICAL - 08/27/2022 10:00 AM EDT Images from the original note were not included. NAME: Ariadna Haley [facility] NO.: [id number] DATE OF SERVICE: August 27, 2022 (Bob) [...] injections. Shefollows with multiple doctors including and lecturer in marketing, title i instructional assistant, helpdesk analyst and PCP. She has been told they [...] stomach other (Crohn's [Other]) Mother Rebekah Rojas APRN.HOME HEALTH NURSE LICENSED PRACTICAL Hematology and Oncology Services Provided at: [place], [place] CC: Manuel Ferris MD [address] [facility] [address] I spent a total of 30 minutes on the date of the service which included preparing to see the patient, ewcw-uq-tqzf patient care, completing clinical documentation, obtaining and/or reviewing separately obtained history, performing a medically appropriate examination, counseling and educating the pat ient/family/caregiver, ordering medications, tests, or procedures, independently interpreting results (not separately reported), and communicating results to the patient/family/caregiver. documented in this encounterTrihealth Mccull[facility]03-29-2023 Miscellaneous Notes* Telephone Encounter - [...] low vitamin b12- take over the counter 9737-6568 mcg daily. Improved/ normal rest of rheum [...] accordingly. Lynne Ni MD documented in this encounterTrihealth Mccull[facility]03-28-2023 Miscellaneous Notes* Telephone Encounter - [...] accordingly. Lynne Ni MD documented in this encounterTrihealth Mccull[facility]03-20-2023 Miscellaneous Notes* Telephone Encounter - Christie Phan MD - 08/10/2022 9:46 AM EDT [facility] requesting refill, patient never started according to the chart and I have not seen her in follow-up. * Telephone Encounter - Jami Everett Cma - 08/10/2022 7:40 AM EDT [facility] Pharmacy request for the following refill(s): Requested Prescriptions Pending Prescriptions Disp Refills DULoxetine (CYMBALTA) 20 mg capsule [Pharmacy Med Name: DULOXETINE HCL DR 20 MG CAP] 30 capsule 2 Sig: TAKE 1 CAPSULE BY MOUTH ONCE DAILY Please review and advise. Jami Everett Cma documented in this encounterTrihealth Mccull[facility]03-06-2023 Instructions* Patient Instructions* Lexus Heck APRN.TRUE [...] treatment, there are resources available at the [facility] such as a nutrition consultation or referral to weight management programs at our [facility] [place]. Please let us know if we can assist with a referral. - Continue CPAP at 5-15 cmH2O. - Remember to clean your mask and equipment regularly, as directed. - You should be eligible for new supplies approximately every 3-6 months, depending on your insurance coverage. Contact your [employer] (DME) company for new supplies. [...] the central scheduling system for the [facility] [place] at [phone]. [facility] now offers direct scheduling for patients to schedule appointments. Virtual visits are also available. If not covered by your insurance, there is a 35% discount. Please contact your insurance to determine coverage. Call the office at [phone], option #5 for questions. documented in this encounterTrihealth Mccull[facility]03-06-2023 History of Present illness Narrative* Lexus Heck APRN.CNP - 07/27/2022 10:30 AM EST Images from the original note were not included. [facility] Virtual Visit [...] will have a prescription sent to a [employer] ([employer] medical equipment) company - [employer] who will be calling you in the next 1-2 weeks or so. Please call them directly or us if you do not hear from them in this time frame. - Will request formal mask fitting - You should be eligible for new supplies approximately every 3-6 months, depending on your insurance coverage. - If your mask doesn't fit well, call the [employer] company before 30 days are up to [...] now to ensure the besttime for you. [facility] on 04/13/22 CONSULT TO SLEEP MEDICINE - ADULT CPAP/BIPAP/OTHER PAP THERAPY ORDER Lawanda Miranda MD Interval history : Here for follow up for sleep apnea management. SLEEP APNEA Sleep apnea type : JOSE RAFAEL Most Recent Apnea-Hypopnea Index (AHI): 5.3 Treatment : PAP therapy DME: Josh MOJICA fax: [phone] DME ph: [phone] PAP History: Current PAP settin-15 cm H2O. [...] or near accidents due to drowsy drivin [place] Sleepiness Scale 04/12/2022 07/23/2022 Score 4 (No [...] medications, tests, or procedures. documented in this encounterTrihealth Mccull[facility]03-03-2023 Miscellaneous Notes* Telephone Encounter - [...] back to this agent, [facility]. 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 documented in this encounterTrihealth Mccull[facility]03-01-2023 Miscellaneous Notes* Telephone Encounter - Gem Mercedes RN - 07/22/2022 2:37 PM EST MyChart message sent documented in this [facility]12-28-2022 History of Present illness Narrative* Kenzie Shannon - 05/20/2022 2:28 PM EST Patient Identification confirmed: yes. Injection given and documented on JUL per provider order. Kenzie Shannon documented in this [facility]12-28-2022 Miscellaneous Notes* Addendum Note - Vera Najera MD - 05/20/2022 2:27 PM ESTAddended by: VERA NAJERA on: 05/20/2022 02:27 PM Modules accepted: Orders documented in this [facility]12-28-2022 Instructions* Patient Instructions* Vera Najera MD - 05/20/2022 2:23 PM EST B12 Shot Today and every 4 weeks Get fit for CPAP mask and setting this 05/28/2021 Continue Folic acid. RTC in 8 Weeks - labs 1 week before. documented in this [facility]12-28-2022 History of Present illness Narrative* Vera Najera MD - 05/20/2022 1:30 PM EST Images from the original note were not included. NAME: Ariadna Haley CLINIC NO.: [id number] DATE OF SERVICE: May 20, 2022 ([place]) [...] which included preparing to see the patient, gsaq-pw-bkhx patient care, completing clinical documentation, performing a medically appropriate examination, counseling and educating the patient/family/caregiver, ordering medications, tests, or p rocedures, and independently interpreting results (not separately reported). Vera Najera MD, [facility] Hematology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 Diagnosed Date Resolved Date Obesity (BMI 30-39.9) 05/31/20142016 documented as of this encounter (statuses as of 02/07/2023) [address]08[address]2015 History of Past illness Narrative* Problem Noted Date Diagnosed Date Resolved Date Obesity (BMI 30-39.9) 05/31/20142016 documented as of this encounter (statuses as of 02/08/2023) [address]08[address]2015 History of Past illness Narrative* Problem Noted Date Diagnosed Date Resolved Date Obesity (BMI 30-39.9) 05/31/20142016 documented as of this encounter (statuses as of 02/16/2023) [facility] of Past illness Narrative* Problem Noted Date Diagnosed Date Resolved Date Obesity (BMI 30-39.9) 05/31/20142016 documented as of this encounter (statuses as of 02/19/2023) [facility] History of Past illness Narrative* Problem Noted Date Diagnosed Date Resolved Date Obesity (BMI 30-39.9) 05/31/20142016 documented as of this encounter (statuses as of 02/21/2023) [facility] History of Past illness Narrative* Problem Noted Date Diagnosed Date Resolved Date Obesity (BMI 30-39.9) 05/31/20142016 documented as of this encounter (statuses as of 03/02/2023) [facility] Diagnosis Other systemic lupus erythematosus with [...] and myositis, unspecified documented in this encounter [facility] Diagnosis Swelling of lymph nodes- Primary Enlargement of lymph nodes Other systemic lupus erythematosus with other organ involvement (HCC) On prednisone therapy Hair loss Alopecia, unspecified Bilateral sacroiliitis (HCC) Long-term use of Plaquenil 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-term (current) use of other medications documented in this encounter [facility] Diagnosis Vitamin B12 deficiency- Primary Other B-complex deficiencies Vitamin D deficiency Unspecified vitamin D deficiency Elevated sed rate Elevated sedimentation rate Elevated C-reactive protein (CRP) documented in this encounter [facility]* Diagnosis 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 Other vitamin B12 deficiency anemia Somnolence, daytime Hypersomnia, unspecified Snoring Other dyspnea and respiratory abnormality Chronic fatigue and malaise Chronic fatigue syndrome Obesity, unspecified classification, unspecified obesity type, unspecified whether serious comorbidity present documented in this encounter [facility]* Diagnosis Obesity, Class II, BMI 35-39.9- [...] nonspecific immunological findings documented in this encounter [facility]* Diagnosis Megaloblastic anemia due to vitamin B12 deficiency- Primary Other vitamin B12 deficiency anemia High total serum IgM [facility] Diagnosis Raised level of immunoglobulins- Primary Other and unspecified nonspecific immunological findings Wound healing, delayed Open wound(s) (multiple) of unspecified site(s), complicated Current smoker Tobacco use disorder [facility]* Diagnosis Family history of genetic disease- Primary Family history of other condition documented in this encounter [facility]* Diagnosis High total serum IgM- Primary Elevated sed rate Elevated sedimentation rate Somnolence, daytime Hypersomnia, unspecified JOSE RAFAEL (obstructive sleep apnea) Obstructive sleep apnea (adult) (pediatric) documented in this encounter [facility]* Diagnosis Megaloblastic anemia due to vitamin B12 deficiency- Primary Other vitamin B12 deficiency anemia Elevated sed rate Elevated sedimentation rate documented in this encounter [facility]* Diagnosis Megaloblastic anemia due to vitamin B12 deficiency- Primary Other vitamin B12 deficiency anemia Elevated sed rate Elevated sedimentation rate High total serum IgM Chronic fatigue and malaise Chronic fatigue syndrome documented in this encounter [facility]* Diagnosis JOSE RAFAEL (obstructive sleep apnea)- Primary Obstructive sleep apnea (adult) (pediatric) documented [facility]* Diagnosis Other systemic lupus erythematosus with other organ involvement (HCC)- Primary Family history of Crohn's disease Family history of other digestive disorders Fibromyalgia Mylagia and myositis, unspecified [facility]* Diagnosis Other systemic lupus erythematosus with other organ involvement (HCC)- Primary Elevated LFTs Other abnormal blood chemistry Anemia of chronic disease Anemia of other chronic disease 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-term (current) use of other medications [facility] Diagnosis Megaloblastic anemia due to vitamin B12 deficiency- Primary Other vitamin B12 deficiency anemia Elevated sed rate Elevated sedimentation rate [facility] [facility] Diagnosis Megaloblastic anemia due to vitamin B12 deficiency- Primary Other vitamin B12 deficiency anemia Elevated sed rate Elevated sedimentation rate High total serum IgM Chronic fatigue and malaise Chronic fatigue syndrome JOSE RAFAEL (obstructive sleep apnea) Obstructive sleep apnea (adult) (pediatric) [facility] Diagnosis Vitamin D deficiency Unspecified vitamin D deficiency [facility] Diagnosis Obesity, Class III, BMI >= 40- Primary Morbid obesity Polypharmacy 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-term (current) use of other medications Pre-diabetes Other abnormal glucose [facility] Diagnosis Megaloblastic anemia due to vitamin B12 deficiency- Primary Other vitamin B12 deficiency anemia Elevated sed rate Elevated sedimentation rate [facility] Diagnosis Megaloblastic anemia due to vitamin B12 deficiency- Primary Other vitamin B12 deficiency anemia Elevated sed rate Elevated sedimentation rate [facility] Diagnosis Megaloblastic anemia due to vitamin B12 deficiency- Primary Other vitamin B12 deficiency anemia Elevated sed rate Elevated sedimentation rate High total serum IgM Chronic fatigue and malaise Chronic fatigue syndrome Obstructive sleep apnea syndrome Obstructive sleep apnea (adult) (pediatric) [facility] Diagnosis Megaloblastic anemia due to vitamin B12 deficiency- Primary Other vitamin B12 deficiency anemia Elevated sed rate Elevated sedimentation rate [facility] Diagnosis Other systemic lupus erythematosus with other organ involvement (HCC) 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-term (current) use of other medications [facility] Diagnosis Megaloblastic anemia due to vitamin B12 deficiency- Primary Other vitamin B12 deficiency anemia Chronic fatigue and malaise Chronic fatigue syndrome [facility] Diagnosis High total serum IgM- Primary Low serum IgG for age Current smoker Tobacco use disorder [facility] Diagnosis Obesity, Class II, BMI 35-39.9 Obesity, unspecified Prediabetes Other abnormal glucose [facility]* Diagnosis Megaloblastic anemia due to vitamin B12 deficiency- Primary Other vitamin B12 deficiency anemia Elevated sed rate Elevated sedimentation rate [facility]* Diagnosis Other systemic lupus erythematosus with other organ involvement (HCC)- Primary Vitamin D deficiency Unspecified vitamin D deficiency Elevated LFTs Other abnormal blood chemistry Anemia of chronic disease Anemia of other chronic disease Elevated sed rate Elevated sedimentation rate Elevated C-reactive protein (CRP) [facility]* Diagnosis Other systemic lupus erythematosus with [...] Bilateral wrist pain 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, forearm [facility] 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-term (current) use of steroids Steroid-induced osteoporosis Other osteoporosis 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 [facility]* Diagnosis Systemic lupus erythematosus with other organ involvement (HCC)- Primary [facility]* Diagnosis Megaloblastic anemia due to vitamin B12 deficiency- Primary Other vitamin B12 deficiency anemia High total serum IgM Elevated sed rate Elevated sedimentation rate [facility]* Diagnosis Other systemic lupus erythematosus with other organ involvement (HCC)- Primary [facility]* Diagnosis Other systemic lupus erythematosus with other organ involvement (HCC) 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-term (current) use of other medications documented [facility]* Diagnosis Megaloblastic anemia due to vitamin B12 deficiency- Primary Other vitamin B12 deficiency anemia Elevated sed rate Elevated sedimentation rate [facility] Diagnosis Megaloblastic anemia due to vitamin B12 deficiency- Primary Other vitamin B12 deficiency anemia Elevated sed rate Elevated sedimentation rate Chronic fatigue and malaise Chronic fatigue syndrome High total serum IgM JOSE RAFAEL (obstructive sleep apnea) Obstructive sleep apnea (adult) (pediatric) [facility] Diagnosis Insulin resistance, unspecified- Primary Depression, recurrent (HCC) Major depressive disorder, recurrent episode, unspecified Chronic pain syndrome documented in this encounter [facility] note* Diagnosis Systemic lupus erythematosus, unspecified SLE type, unspecified organ involvement status ([facility])- Primary [facility]* Diagnosis Megaloblastic anemia due to vitamin B12 deficiency- Primary Other vitamin B12 deficiency anemia Elevated sed rate Elevated sedimentation rate [facility]* Diagnosis Megaloblastic anemia due to vitamin B12 deficiency- Primary Other vitamin B12 deficiency anemia Elevated sed rate Elevated sedimentation rate documented in this encounter [facility] note* Diagnosis Obesity, Class III, BMI >= 40- Primary Morbid obesity FUO (fever of unknown origin) Fever, unspecified Other chronic pain [facility]* Diagnosis Obesity, Class III, BMI >= 40 Morbid obesity documented in this encounter [facility] note* Diagnosis Obesity, Class III, BMI >= 40- Primary Morbid obesity Other chronic pain [facility]* Diagnosis Irregular heart rate- Primary Essential hypertension Unspecified essential hypertension Autonomic dysfunction Obstructive sleep apnea syndrome Obstructive sleep apnea (adult) (pediatric) Primary hypertension Unspecified essential hypertension documented in this encounter [facility] Work Phone: Evaluation note* Diagnosis Autoimmune disease (CMS/HCC)- Primary Autoimmune disease, not elsewhere classified Autonomic dysfunction Lumbosacral radiculopathy Thoracic or lumbosacral neuritis or radiculitis, unspecified Bilateral leg weakness Muscle weakness (generalized) [facility] Diagnosis Shortness of breath- Primary Paroxysmal supraventricular tachycardia PAC (premature atrial contraction) Supraventricular premature beats Current smoker Systemic lupus erythematosus, unspecified SLE type, unspecified organ involvement status (CMS/HCC) Palpitations Obstructive sleep apnea syndrome Obstructive sleep apnea (adult) (pediatric) Morbid obesity (CMS/HCC) Morbid obesity Bilateral lower extremity edema documented in this encounter [facility] Work Phone: Evaluation note* Diagnosis Megaloblastic anemia due to vitamin B12 deficiency- Primary Other vitamin B12 deficiency anemia Elevated sed rate Elevated sedimentation rate [facility]* Diagnosis Systemic lupus erythematosus with other organ involvement (HCC)- Primary documented [facility] this [facility]* Diagnosis Systemic lupus erythematosus with other organ involvement (HCC)- Primary [facility] Diagnosis Megaloblastic anemia due to vitamin B12 deficiency- Primary Other vitamin B12 deficiency anemia Elevated sed rate Elevated sedimentation rate documented [facility] this [facility]* Diagnosis Other systemic lupus erythematosus with other organ involvement (HCC)- Primary Vitamin D deficiency Unspecified vitamin D deficiency Elevated LFTs Other abnormal blood chemistry Anemia of chronic disease Anemia of other chronic disease Elevated sed rate Elevated sedimentation rate Elevated C-reactive protein (CRP) documented [facility] this [facility]* Diagnosis Megaloblastic anemia due to vitamin B12 deficiency- Primary Other vitamin B12 deficiency anemia Obstructive sleep apnea syndrome Obstructive sleep apnea (adult) (pediatric) Chronic fatigue and malaise Chronic fatigue syndrome High total serum IgM JOSE RAFAEL (obstructive sleep apnea) Obstructive sleep apnea (adult) (pediatric) Somnolence, daytime Hypersomnia, unspecified [facility] Diagnosis Elevated sed rate- Primary Elevated sedimentation rate Megaloblastic anemia due to vitamin B12 deficiency Other vitamin B12 deficiency anemia documented [facility] this [facility]* Diagnosis Other systemic lupus erythematosus with [...] other medications Long-term use of high-risk medication [facility] 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-term (current) use of steroids 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 Bilateral hand pain Pain in limb History of vitamin D deficiency Personal history of nutritional deficiency [facility] Diagnosis Elevated sed rate- Primary Elevated sedimentation rate Megaloblastic anemia due to vitamin B12 deficiency Other vitamin B12 deficiency anemia [facility]* Diagnosis Other systemic lupus erythematosus with other organ involvement (HCC) Encounter for jail 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-term (current) use of other medications [facility]* Diagnosis Systemic lupus erythematosus with other organ involvement (HCC)- Primary [facility]* Diagnosis Vitamin B12 deficiency- Primary Other B-complex deficiencies [facility]* Diagnosis Elevated sed rate- Primary Elevated sedimentation rate Megaloblastic anemia due to vitamin B12 deficiency Other vitamin B12 deficiency anemia [facility]* Diagnosis Elevated sed rate- Primary Elevated sedimentation rate Megaloblastic anemia due to vitamin B12 deficiency Other vitamin B12 deficiency anemia [facility]* Diagnosis Megaloblastic anemia due to vitamin B12 deficiency- Primary Other vitamin B12 deficiency anemia Elevated sed rate Elevated sedimentation rate Obstructive sleep apnea syndrome Obstructive sleep apnea (adult) (pediatric) [facility]* Diagnosis Elevated LFTs- Primary Other abnormal blood chemistry Elevated C-reactive protein (CRP) Elevated sed rate Elevated sedimentation rate Vitamin D deficiency Unspecified vitamin D deficiency Screening-pulmonary TB Screening examination for pulmonary tuberculosis [facility]* Diagnosis Other systemic lupus erythematosus with other organ involvement (HCC) [facility]* Diagnosis Systemic lupus erythematosus with [...] of other medications [facility]* Diagnosis Onset Date Resolution Status Lupus acute Recurrent Clostridioides difficile diarrhea acute Nipple discharge in female a cute Recurrent Clostridioides difficile diarrhea acute Lumbosacral spondylosis acut e Other chronic pain acute Sacroiliitis acute [facility] Work Phone: Evaluation note* Diagnosis JOSE RAFAEL (obstructive sleep apnea)- Primary Obstructive sleep apnea (adult) (pediatric) Somnolence, daytime Hypersomnia, unspecified [facility]* Diagnosis Systemic lupus erythematosus with other organ involvement (HCC)- Primary documented in this encounter [facility] note* Diagnosis Systemic lupus erythematosus with other organ involvement (HCC)- Primary [facility]* Diagnosis Onset Date Resolution Status Nipple discharge in female a cute Recurrent Clostridioides difficile diarrhea acute Lumbosacral spondylosis acut e Other chronic pain acute Sacroiliitis acute [facility] Work Phone: Evaluation note* Diagnosis Elevated sed rate- Primary Elevated sedimentation rate Megaloblastic anemia due to vitamin B12 deficiency Other vitamin B12 deficiency anemia documented in this encounter [facility] note* Diagnosis Onset Date Resolution Status Nipple discharge in female a cute Recurrent Clostridioides difficile diarrhea acute Lumbosacral spondylosis acut e Other chronic pain acute Sacroiliitis acute Lumbosacral spondylosis acut e Other chronic pain acute Sacroiliitis acute [facility] Work Phone: Evaluation note* Diagnosis Lumbosacral radiculopathy at L5 Degenerative disc disease, lumbar Cervical radiculopathy at C5 [facility] Diagnosis Onset Date Resolution Status Lumbosacral spondylosis acut e Other chronic pain acute Sacroiliitis acute Lumbosacral spondylosis acut e Other chronic pain acute Sacroiliitis acute [facility] Work Phone: Evaluation note* Diagnosis Other systemic lupus erythematosus with other organ involvement (HCC) [facility]* Diagnosis Other systemic lupus erythematosus with [...] both feet Long-term use of high-risk medication [facility] 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-term (current) use of steroids Bilateral hand pain Pain in limb Systemic lupus erythematosus, unspecified SLE type, unspecified organ involvement status (HCC) Vitamin B12 deficiency Other B-complex deficiencies Discoid lupus erythematosus Lupus erythematosus [facility] Diagnosis Nipple discharge Other sign and symptom in breast documented in this encounter [facility]* Diagnosis Elevated sed rate- Primary Elevated sedimentation rate Megaloblastic anemia due to vitamin B12 deficiency Other vitamin B12 deficiency anemia [facility] Diagnosis Abnormal uterine bleeding (AUB) Menorrhagia with regular cycle documented in this encounter [facility]* Diagnosis Megaloblastic anemia due to vitamin B12 deficiency- Primary Other vitamin B12 deficiency anemia High total serum IgM JOSE RAFAEL (obstructive sleep apnea) Obstructive sleep apnea (adult) (pediatric) Elevated sed rate Elevated sedimentation rate Hypogammaglobulinemia (HCC) Hypogammaglobulinaemia, unspecified Frequent infections [facility] Diagnosis Oral thrush- Primary Candidiasis of mouth documented in this encounter [facility]* Diagnosis Oral thrush- Primary Candidiasis of mouth documented in this encounter [facility]* Diagnosis Systemic lupus erythematosus with other organ involvement ([facility])- Primary [facility]* Diagnosis LPRD (laryngopharyngeal reflux disease)- Primary Acute laryngitis, without mention of obstruction Acute otalgia, right documented in this encounter [facility]* Diagnosis Autoimmune disease ([facility]) Autoimmune disease, not elsewhere classified Fibromyalgia Unspecified myalgia and myositis Numbness Disturbance of skin sensation documented in this encounter [facility]* Diagnosis Lumbosacral radiculopathy at L5- Primary Degenerative disc disease, lumbar Cervical radiculopathy at C5 documented in this encounter [facility]* Diagnosis Degenerative disc disease, lumbar- Primary Lumbosacral radiculopathy at L5 documented in this encounter [facility]* Diagnosis Frequent infections- Primary Megaloblastic anemia due to vitamin B12 deficiency Other vitamin B12 deficiency anemia Elevated sed rate Elevated sedimentation rate Hypogammaglobulinemia (HCC) Hypogammaglobulinaemia, unspecified Bilateral leg weakness Other musculoskeletal symptoms referable to limbs Discoid lupus erythematosus Lupus erythematosus documented [facility]* Diagnosis Well woman exam with routine gynecological exam Routine gynecological examination Breast cancer screening by mammogram Breast nodule Other (abnormal) findings on radiological examination of breast [facility]* Diagnosis Megaloblastic anemia due to vitamin B12 deficiency- Primary Other vitamin B12 deficiency anemia Hypogammaglobulinemia (HCC) Hypogammaglobulinaemia, unspecified Positive blood cultures Bacteremia Malaise and fatigue Other malaise and fatigue SOB (shortness of breath) Shortness of breath [facility]* Diagnosis Elevated sed rate- Primary Elevated sedimentation rate Megaloblastic anemia due to vitamin B12 deficiency Other vitamin B12 deficiency anemia Hypogammaglobulinemia (HCC) Hypogammaglobulinaemia, unspecified Frequent infections Bilateral leg weakness Other musculoskeletal symptoms referable to limbs Discoid lupus erythematosus Lupus erythematosus documented in this [facility]* Diagnosis Diarrhea, unspecified type- Primary Abdominal pressure Abdominal pain, unspecified site documented in this [facility]* Diagnosis Other iron deficiency anemia- Primary documented [facility] this [facility]* Diagnosis Other systemic lupus erythematosus with other organ involvement (HCC) documented in this [facility]* Diagnosis Systemic lupus erythematosus with other organ involvement (HCC)- Primary [facility]* Diagnosis Systemic lupus erythematosus (CMS-HCC)- Primary Cold extremities Pain of lower extremity, unspecified laterality Rheumatoid arthritis, involving unspecified site, unspecified whether rheumatoid factor present ([facility]) Current smoker 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 [facility] Diagnosis Systemic lupus erythematosus (CMS-HCC)- Primary Cold extremities Pain of lower extremity, unspecified laterality Rheumatoid arthritis, involving unspecified site, unspecified whether rheumatoid factor present ([facility]) Current smoker 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 Peripheral vascular disease, unspecified (CMS-HCC)- Primary Peripheral vascular disease, unspecified Cold extremities Systemic lupus erythematosus (CMS-HCC) [facility] this [facility]* Diagnosis Other systemic lupus erythematosus with other organ involvement (HCC)- Primary Vitamin D deficiency Unspecified vitamin D deficiency Elevated LFTs Other abnormal blood chemistry Anemia of chronic disease Anemia of other chronic disease Elevated sed rate Elevated sedimentation rate Elevated C-reactive protein (CRP) [facility] Diagnosis Onset Date Resolution Status Admit Date Lumbosacral spondylosis acute F ebruary 2024 3:16pm Other chronic pain acute Februa ry 2024 3:16pm Sacroiliitis acute June 3:16pm [facility] Work Phone: Evaluation note* Diagnosis Elevated sed rate- Primary Elevated sedimentation rate Megaloblastic anemia due to vitamin B12 deficiency Other vitamin B12 deficiency anemia Frequent infections Hypogammaglobulinemia (HCC) Hypogammaglobulinaemia, unspecified Bilateral leg weakness Other musculoskeletal symptoms referable to limbs Discoid lupus erythematosus Lupus erythematosus [facility] Diagnosis LPRD (laryngopharyngeal reflux disease) Other diseases of larynx Dry mouth Disturbance of salivary secretion Current smoker Tobacco use disorder Abnormal mouth sensation Other and unspecified diseases of the oral soft tissues [facility] Diagnosis Nipple discharge- Primary Other sign and symptom in breast Other systemic lupus erythematosus with other organ involvement (HCC) On prednisone therapy Long-term use of Plaquenil 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-term (current) use of other medications [facility] Diagnosis Hidradenitis suppurativa- Primary Hidradenitis Other seborrheic dermatitis Lupus erythematosus tumidus (CMS/HCC) Rash and other nonspecific skin eruption Capillary angioma Nevus, non-neoplastic Neoplasm of uncertain behavior of skin [facility] Sinus tachycardia- Primary Other specified cardiac dysrhythmias Shortness of breath Paroxysmal supraventricular tachycardia (CMS-HCC) Paroxysmal supraventricular tachycardia Essential hypertension Unspecified essential hypertension Obstructive sleep apnea syndrome Obstructive sleep apnea (adult) (pediatric) Morbid obesity (Multi) Morbid obesity Current smoker documented in this encounter [facility] Work Phone: Evaluation note* Diagnosis Elevated sed rate- Primary Elevated sedimentation rate Megaloblastic anemia due to vitamin B12 deficiency Other vitamin B12 deficiency anemia Frequent infections Hypogammaglobulinemia (HCC) Hypogammaglobulinaemia, unspecified Bilateral leg weakness Other musculoskeletal symptoms referable to limbs Discoid lupus erythematosus Lupus erythematosus [facility] Diagnosis Systemic lupus erythematosus with other organ involvement (HCC)- Primary [facility] Diagnosis Vitamin B12 deficiency- Primary Other B-complex deficiencies Other iron deficiency anemia Hypogammaglobulinemia (HCC) Hypogammaglobulinaemia, unspecified documented in this encounter [facility] Diagnosis Other systemic lupus erythematosus with other organ involvement (HCC) documented in this encounter [facility]* Diagnosis Thyroid nodule (CMS/HCC)- Primary Nontoxic uninodular goiter LPRD (laryngopharyngeal reflux disease) Acute laryngitis, without mention of obstruction [facility] Diagnosis Hypogammaglobulinemia (HCC)- Primary Hypogammaglobulinaemia, unspecified Vitamin B12 deficiency Other B-complex deficiencies Other iron deficiency anemia Megaloblastic anemia due to vitamin B12 deficiency Other vitamin B12 deficiency anemia documented in this encounter [facility]* Diagnosis Frequent infections- Primary Hypogammaglobulinemia (HCC) Hypogammaglobulinaemia, unspecified Bilateral leg weakness Other musculoskeletal symptoms referable to limbs Discoid lupus erythematosus Lupus erythematosus Elevated sed rate Elevated sedimentation rate Megaloblastic anemia due to vitamin B12 deficiency Other vitamin B12 deficiency anemia documented in this encounter [facility] Diagnosis Other systemic lupus erythematosus with other organ involvement (HCC)- Primary [facility] Diagnosis Other systemic lupus erythematosus with other organ involvement (HCC) documented in this encounter [facility]* Diagnosis Systemic lupus erythematosus with other organ involvement (HCC)- Primary documented in this encounter [facility]* Diagnosis Fibromyalgia- Primary Mylagia and myositis, unspecified Family history of disease of aorta Family history of cancer Family history of unspecified malignant neoplasm documented in this encounter [facility]* Diagnosis Frequent infections- Primary Hypogammaglobulinemia (HCC) [...] vitamin D deficiency documented in this [facility] Diagnosis Other systemic lupus erythematosus with other organ involvement (HCC)- Primary documented in this [facility] Diagnosis Other systemic lupus erythematosus with other organ involvement (HCC)- Primary Elevated LFTs Other abnormal blood chemistry Anemia of chronic disease Anemia of other chronic disease Elevated sed rate Elevated sedimentation rate Elevated C-reactive protein (CRP) Vitamin B12 deficiency Other B-complex deficiencies Screening-pulmonary TB Screening examination for pulmonary tuberculosis Vitamin D deficiency Unspecified vitamin D deficiency documented in this encounter [facility] Diagnosis Other systemic lupus [...] both feet Long-term use of high-risk 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-term (current) use of steroids Bilateral hand pain Pain in limb Family history of Crohn's disease Family history of other digestive disorders 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 Bilateral wrist pain 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, forearm documented in this encounter [facility] Diagnosis Other systemic lupus erythematosus with other organ involvement (HCC)- Primary documented in this encounter [facility]* Diagnosis Generalized articular hypermobility- Primary Other joint derangement, not elsewhere classified, multiple sites Chronic pain syndrome Discoid lupus erythematosus Lupus erythematosus Family history of pneumothorax in son Family history of other condition Family history of cancer Family history of unspecified malignant neoplasm Family history of mild aortic dilation in daughter Family history of other cardiovascular diseases documented in this encounter [facility] Diagnosis Elevated sed rate- Primary Elevated sedimentation rate Megaloblastic anemia due to vitamin B12 deficiency Other vitamin B12 deficiency anemia Frequent infections Hypogammaglobulinemia (HCC) Hypogammaglobulinaemia, unspecified Bilateral leg weakness Other musculoskeletal symptoms referable to limbs Discoid lupus erythematosus Lupus erythematosus documented in this encounter [facility]* Diagnosis Other systemic lupus erythematosus with other organ involvement (HCC)- Primary documented in this encounter [facility]* Diagnosis Hypogammaglobulinemia (HCC)- Primary Hypogammaglobulinaemia, unspecified [facility] Diagnosis Hidradenitis suppurativa- Primary Hidradenitis Pain Generalized pain Acne vulgaris Other acne [facility] Diagnosis Hypogammaglobulinemia (HCC)- Primary Hypogammaglobulinaemia, unspecified Vitamin B12 deficiency Other B-complex deficiencies Other iron deficiency anemia Malaise and fatigue Other malaise and fatigue Shortness of breath Other specified disorders of breast Pre-diabetes Other abnormal glucose Gastro-esophageal reflux disease without esophagitis Esophageal reflux documented [facility] this [facility]* Diagnosis Elevated sed rate- Primary Elevated sedimentation rate Megaloblastic anemia due to vitamin B12 deficiency Other vitamin B12 deficiency anemia Frequent infections Hypogammaglobulinemia (HCC) Hypogammaglobulinaemia, unspecified Bilateral leg weakness Other musculoskeletal symptoms referable to limbs Discoid lupus erythematosus Lupus erythematosus documented [facility]* Diagnosis Other systemic lupus erythematosus with other organ involvement (HCC)- Primary documented in this encounter [facility]* Diagnosis Other systemic lupus erythematosus with other organ involvement (HCC)- Primary Elevated LFTs Other abnormal blood chemistry Anemia of chronic disease Anemia of other chronic disease Elevated sed rate Elevated sedimentation rate Elevated C-reactive protein (CRP) Vitamin D deficiency Unspecified vitamin D deficiency Vitamin B12 deficiency Other B-complex deficiencies Screening-pulmonary TB Screening examination for pulmonary tuberculosis documented in this encounter [facility] note* Diagnosis Other systemic lupus erythematosus with other organ involvement (HCC)- Primary Elevated LFTs Other abnormal blood chemistry Anemia of chronic disease Anemia of other chronic disease Elevated C-reactive protein (CRP) Elevated sed rate Elevated sedimentation rate Vitamin D deficiency Unspecified vitamin D deficiency documented [facility] this [facility]* Diagnosis Frequent infections- Primary Hypogammaglobulinemia (HCC) Hypogammaglobulinaemia, unspecified Bilateral leg weakness Other musculoskeletal symptoms referable to limbs Discoid lupus erythematosus Lupus erythematosus Elevated sed rate Elevated sedimentation rate Megaloblastic anemia due to vitamin B12 deficiency Other vitamin B12 deficiency anemia documented [facility]* Diagnosis Pilonidal cyst- Primary Hidradenitis suppurativa Hidradenitis documented in this encounter [facility] HealthcareHistory general Narrative - Reported* Type Description Date Medical History hyperlipidemia Medical History insulin resistance Medical History CMV Surgical History cyst removal pilonidal Surgical History D&C Hospitalization History zerobound Other Hospital Discharge instructionsAmbulatory Orders* Referral to Gastroenterology Location: None [facility] Work Phone: InstructionsNot on filedocumented in this encounter [facility] for referral (narrative)* Diagnostic Procedure Only (Routine) - Pending Review Specialty Diagnoses / Procedures Referred By Nahid t Referred To Contact XR IMAGING Diagnoses Steroid-induced osteoporosis Procedures DXA-FOREARM SKELETON DXA BONE DENSITY STUDY /SITES APPENDICLR Lynne Perera MD [address] [place] [address] [place] [address] Referral ID Status Reason Start Date Expiration Date Visits Requested Visits Authorized [id number] Pending Review Auto-Generat ed Referral 02/04/2023 03/05/2024 1 1 [facility] for referral (narrative)* Consultation (Routine) - Authorized Specialty Diagnoses / Procedures Referred By Nahid t Referred To Contact Cardiology Diagnoses Irregular heart rate Essential hypertension Autonomic dysfunction Obstructive sleep apnea syndrome Primary hypertension Procedures Follow Up In Cardiology Michelle Jasmine APRN-HOME HEALTH NURSE LICENSED PRACTICAL [address] [facility] [address] [place] [address] Aurora Patel MD [address] [address] Referral ID Status Reason Start Date Expiration Date V isits Requested Visits Authorized [id number] Authorized 06/09/2023 06/08/2024 1 1 * Cardiovascular (Routine) - Pending Review Specialty Diagnoses / Procedures Referred By Contiliana t Referred To Contact Cardiology Diagnoses Irregular heart rate Procedures Holter Or Event Clinical Laboratory Director Michelle Jasmine APRN-CNP [address] [facility] [address] [place] [address] Referral ID Status Reason Start Date Expiration Date V isits Requested Visits Authorized Pending Review 06/09/2023 06/08/2024 1 1 * CV Imaging (Routine) - Pending Review Specialty Diagnoses / Procedures Referred By Contac t Referred To Contact Cardiology Diagnoses Irregular heart rate Obstructive sleep apnea syndrome Procedures Transthoracic Echo (TTE) Complete PA ECHO TTHRC R-T 2D W/WOM-MODE COMPL SPEC&COLR D [facility] [address] [facility] [address] [place] [address] Referral ID Status Reason Start Date Expiration Date Visits Requested Visits Authorized Pending Review Perform Procedure 06/09/2023 06/08/2024 1 1 * Cardiovascular (Routine) - Authorized Specialty Diagnoses / Procedures Referred By Contac t Referred To Contact Diagnoses Irregular heart rate Procedures ECG 12 Lead Michelle Jasmine APRN-HOME HEALTH NURSE LICENSED PRACTICAL [address] [facility] [address] [place] [address] Referral ID Status Reason Start Date Expiration Date V isits Requested Visits Authorized [id number] Authorized 06/09/2023 06/08/2024 1 1 [facility] Work Phone: [facility] Consultation (Routine) - Pending Review Specialty Diagnoses / Procedures Referred By Contac t Referred To Contact Pain Medicine Diagnoses Lumbosacral radiculopathy at L5 Degenerative disc disease, lumbar Procedures PA OFFICE/OUTPATIENT NEW HIGH MDM 60 MINUTES Kade Richardson MD [address] [place] [address] [place] [id number] Adolfo Kang MD [address] [id number] Referral ID Status Reason Start Date Expiration Date Visits Requested Visits Authorized [id number] Pending Review Specialty Services Required 01/20/2024 07/18/2024 1 1 [facility]No reason for referral [facility] Work Phone: Reason for visit Narrative* [facility] Prior Authorization (Routine) - Authorized Specialty Diagnoses / Procedures Referred By Contac t Referred To Contact Diagnoses Frequent infections Hypogammaglobulinemia (HCC) Bilateral leg weakness Discoid lupus erythematosus Procedures GAMMAGARD LIQUID INJECTION Vera Najera MD [address] [place] [address] [place] [address] Phone: tel: fax: Hematology/Oncology [address] [place] [address] [place] [address] Phone: tel: fax: Referral ID Status Reason Start Date Expiration Date V isits Requested Visits Authorized [id number] Authorized 04/03/2024 10/01/2024 7 7 [facility] for visit Narrative* [facility] Prior Authorization (Routine) - Authorized Specialty Diagnoses / Procedures Referred By Contac t Referred To Contact Diagnoses Other systemic lupus erythematosus with other organ involvement (HCC) Procedures BELIMUMAB INJECTION Lynne Ni MD [address] [place] [address] Phone: tel: fax: Lynne Ni MD [address] [place] [address] Phone: tel: fax: Referral ID Status Reason Start Date Expiration Date V isits Requested Visits Authorized [id number] Authorized 09/08/2024 03/10/2025 8 8 [facility] for visit Narrative* [facility] Prior Authorization (Routine) - Authorized Specialty Diagnoses / Procedures Referred By Contac t Referred To Contact Diagnoses Other iron deficiency anemia Procedures IRON SUCROSE INJECTION PER 1 MG Vaibhav Carvalho APRN.[facility] [address] [place] [address] Phone: tel: fax: Hematology/Oncology [address] [place] [address] Phone: tel: fax: Referral ID Status Reason Start Date Expiration Date V isits Requested Visits Authorized [id number] Authorized 06/16/2024 05/23/2025 99 99 [facility] for visit Narrative* [facility] Prior Authorization (Routine) - Authorized Specialty Diagnoses / Procedures Referred By Contac t Referred To Contact Diagnoses Frequent infections Hypogammaglobulinemia (HCC) Bilateral leg weakness Discoid lupus erythematosus Procedures GAMMAGARD LIQUID INJECTION Vera Najera MD [address] [place] [address] Phone: tel: fax: Hematology/Oncology [address] [place] [id number] Phone: tel: fax: Referral ID Status Reason Start Date Expiration Date Visits Requested Visits Authorized [id number] Authorized Patient Cleared - Admin/Chairm an/Director advise to proceed or did not respond 10/30/2024 10/30/2025 19 19 [facility] for visit Narrative* [facility] Prior Authorization (Routine) - Authorized Specialty Diagnoses / Procedures Referred By Contac t Referred To Contact Diagnoses Frequent infections Hypogammaglobulinemia (HCC) Bilateral leg weakness Discoid lupus erythematosus Procedures GAMMAGARD LIQUID INJECTION Vera Najera MD [address] [place] [address] Phone: tel: fax: Hematology/Oncology [address] [place] [address] Phone: tel: fax: Referral ID Status Reason Start Date Expiration Date Visits Requested Visits Authorized [id number] Authorized Patient Cleared - Admin/Chairm an/Director advise to proceed or did not respond 10/30/2024 10/30/2025 18 18 [facility] Prior Authorization (Routine) - Authorized Specialty Diagnoses / Procedures Referred By Contac t Referred To Contact Diagnoses Frequent infections Hypogammaglobulinemia (HCC) Bilateral leg weakness Discoid lupus erythematosus Procedures GAMMAGARD LIQUID INJECTION IMMUNE GLOBULIN INJECTION Vera Najera MD [address] [place] [address] Phone: tel: fax: Hematology/Oncology [address] [place] [address] Phone: tel: fax: Referral ID Status Reason Start Date Expiration Date Visits Requested Visits Authorized [id number] Authorized Patient Cleared - Admin/Chairm an/Director advise to proceed or did not respond 10/30/2024 10/30/2025 19 19 [facility] Summary Purpose Family History No Family History Records Found Relationship Condition Age at Onset Recorded Date/T michelle father Unknown Malignant neoplasm Unknown Relationship Condition Age at Onset Recorded Date/T michelle father Malignant neoplasm of stomach Unknown Unknown mother Crohn's disease Unknown Advance Directives No Advanced Directives Records FoundDocuments on File Type Date Recorded Patient Manufacture Specialist Expl anation ACP-Advance Directive ACP-Power of Surgical Technologist Latest Code Status on File Code Status Date Activated Date Inactivated Comments Full Code 10/07/2020 8:32 AM Documents on File Type Date Recorded Patient Manufacture Specialist Expl anation Advance Directive(s) 09/13/2015 8:36 AM Advance Directive Response Recorded Date/ Time Advance Directives No September 17 2:40pm Advance Directive Response Recorded Date/ Time Advance Directives No September 17 1:40pm Reason for Referral Specialty Diagnoses / Procedures Referred By Contac t Referred To Contact Infectious Diseases Diagnoses Positive blood cultures Procedures CONSULT TO INFECTIOUS DISEASES OFFICE/OUTPATIENT [facility] HIGH MDM 60 MINUTES Vaibhav Carvalho APRN.HOME HEALTH NURSE [facility]ENSED [facility]ACTICAL [address] [place] [address] Referral ID Status Reason Start Date Expiration Date Visits Requested Visits Authorized [id number] Authorized PCP Requested Referral 06/13/2024 06/13/2025 1 1 Specialty Diagnoses / Procedures Referred By Contac t Referred To Contact Diagnoses Paroxysmal supraventricular tachycardia PAC (premature atrial contraction) Procedures ECG 12 Lead Lois Holm MD [address] [place] [address] 2, [address] [address] Referral ID Status Reason Start Date Expiration Date V isits Requested Visits Authorized [id number] Authorized 07/13/2023 07/12/2024 1 1 Specialty Diagnoses / Procedures Referred By Contac t Referred To Contact Cardiology Diagnoses Shortness of breath Paroxysmal supraventricular tachycardia PAC (premature atrial contraction) Procedures Follow Up In Cardiology Lois Holm MD [address] [place] [address] 2, [address] [address] Lois Holm MD [address] [place] [address] 2, [address] [address] Referral ID Status Reason Start Date Expiration Date V isits Requested Visits Authorized [id number] Authorized 07/13/2023 07/12/2024 1 1 Specialty Diagnoses / Procedures Referred By Contac t Referred To Contact Diagnoses Obesity, Class III, BMI 40-49.9 (morbid obesity) (HCC) Pre-diabetes Christie Phan MD [address] [place], [place] [id number] Referral ID Status Reason Start Date Expiration Date Visits Re quested Visits Authorized [id number] Closed 1 1 Specialty Diagnoses / Procedures Referred By Contac t Referred To Contact Diagnoses Wound healing, delayed Procedures CONSULT TO MEDICAL GENETICS - GENERAL OFFICE/OUTPATIENT [facility] 60-74 MINUTES MEDICAL GENETICS COUNSELING EACH 30 MINUTES Misty Nelson MD [facility] [place] [address] [facility] [place] [address] [place] [address] Referral ID Status Reason Start Date Expiration Date Visits Requested Visits Authorized [id number] Authorized PCP Requested Referral Auto-Generate d Referral 2 03/10/2023 1 1 Specialty Diagnoses / Procedures Referred By Contac t Referred To Contact Neurology Diagnoses POTS (postural orthostatic tachycardia syndrome) Procedures CONSULT TO NEUROLOGY OFFICE/OUTPATIENT [facility] 60-74 MINUTES Christie Phan MD [address] [place] [address] Referral ID Status Reason Start Date Expiration Date Visits Requested Visits Authorized [id number] Authorized PCP Requested Referral 2 03/12/2023 1 1 Specialty Diagnoses / Procedures Referred By Contac t Referred To Contact Immunology Diagnoses Raised level of immunoglobulins Procedures CONSULT TO IMMUNOLOGY OFFICE/OUTPATIENT [facility] 60-74 MINUTES Christie Phan MD [address] [place] [address] Referral ID Status Reason Start Date Expiration Date V isits Requested Visits Authorized [id number] Closed PCP Requested Referral 03/09/2022 03/09/2023 1 1 Specialty Diagnoses / Procedures Referred By Contac t Referred To Contact [facility] Diagnoses Somnolence, daytime Snoring Procedures HOME SLEEP APNEA TEST (HSAT) SLEEP STD AIRFLOW HRT RATE&O2 SAT EFFORT UNATT Christie Phan MD [address] [place] [address] [facility] [address] [place] [address] Referral ID Status Reason Start Date Expiration Date Visits Requested Visits Authorized [id number] Authorized Auto-Generat ed Referral 2 03/09/2023 1 1 Specialty Diagnoses / Procedures Referred By Contac t Referred To Contact Diagnoses Somnolence, daytime Chronic fatigue and malaise Obesity, unspecified classification, unspecified obesity type, unspecified whether serious comorbidity present Procedures CONSULT TO LIFESTYLE MEDICINE MD OFFICE/OUTPATIENT [facility] 60-74 MINUTES Vera Najera MD [address] [place] [address] [address] [place] [phone] Referral ID Status Reason Start Date Expiration Date V isits Requested Visits Authorized [id number] Closed PCP Requested Referral 03/04/2022 03/04/2023 1 1 Specialty Diagnoses / Procedures Referred By Contac t Referred To Contact Diagnoses Somnolence, daytime Snoring Procedures CONSULT TO SLEEP MEDICINE - ADULT OFFICE/OUTPATIENT [facility] 60-74 MINUTES Vera Najera MD [address] [place] [address] [place] [address] Referral ID Status Reason Start Date Expiration Date Visits Requested Visits Authorized [id number] Authorized PCP Requested Referral 03/04/2023 1 1 [...] section and content) DATE CREATED AUTHOR 09/20/2018 [facility] DATE CREATED AUTHOR AUTHOR'S ORGANIZ ATION 12/10/2018 [facility] DATE CREATED AUTHOR AUTHOR'S ORGANIZ ATION 01/13/2019 [facility] DATE CREATED AUTHOR AUTHOR'S ORGANIZ ATION 06/28/2021 [facility] DATE CREATED AUTHOR AUTHOR'S ORGANIZ ATION 10/01/2022 [facility] DATE CREATED AUTHOR AUTHOR'S ORGANIZ ATION 03/10/2024 [facility] DATE CREATED AUTHOR AUTHOR'S ORGANIZ ATION 07/22/2024 [facility] DATE CREATED AUTHOR AUTHOR'S ORGANIZ ATION 07/28/2024 [facility] DATE CREATED AUTHOR AUTHOR'S ORGANIZ ATION 02/07/2025 [facility] DATE CREATED AUTHOR AUTHOR'S ORGANIZ ATION 02/16/2025 [facility] EP[facility] DATE CREATED AUTHOR AUTHOR'S ORGANIZ ATION 02/26/2025 [facility] Reason for Visit (unrecogniz ed section and content) Reason Comments Infection Follow Up Specialty Diagnoses / Procedures Referred By Nahid tran Referred To Contact Infectious Diseases Diagnoses Positive blood cultures Procedures CONSULT TO INFECTIOUS DISEASES OFFICE/OUTPATIENT [facility] 60 MINUTES Vaibhav Carvalho, [address] [place] [address] Phone: tel: fax: Referral ID Status Reason Start Date Expiration Date V isits Requested Visits Authorized [id number] Closed PCP Requested Referral 06/13/2024 06/13/2025 1 1 Status Reason Specialty Diagnoses / Procedures Referre d By Contact Referred To Contact [facility] Reason Comments Pain ongoing generalized [...] HIGH MDM 60-74 MINUTES Vera Najera MD [address] [place] [address] [place] [address] Referral ID Status Reason Start Date Expiration Date V isits Requested Visits Authorized [id number] Closed PCP Requested Referral 03/04/2022 03/04/2023 1 1 Reason Comments High Total serum IgM Anemia Reason Comments Consult Specialty Diagnoses / Procedures Referred By Nahid t Referred To Contact Immunology Diagnoses Raised level of immunoglobulins Procedures CONSULT TO IMMUNOLOGY OFFICE/OUTPATIENT NEW HIGH MDM 60-74 MINUTES Christie Phan MD [address] [id number] Referral ID Status Reason Start Date Expiration Date V isits Requested Visits Authorized [id number] Closed PCP Requested Referral 03/09/2022 03/09/2023 1 1 Reason Comments Pneumovax Reason Comments Refill Request Reason Comments Appointment [facility] - Other Reason Comments Future Appointment Scheduling questions /concerns Reason Comments PAP Therapy Follow Up Reason Comments PAP Rx Faxed [facility] Josh [place] Reason Comments [...] rate Procedures ECG 12 Lead Michelle Jasmine, DIRECTOR OF PRECLINICAL RESEARCH-HOME HEALTH NURSE LICENSED PRACTICAL [address] [facility] [address] [place] [address] Referral ID Status Reason Start Date Expiration Date V isits Requested Visits Authorized [id number] Authorized 06/09/2023 06/08/2024 1 1 Reason Comments New Patient Visit Leg Swelling, test r esults from [facility] Specialty Diagnoses / Procedures Referred By Contac t Referred To Contact Diagnoses Paroxysmal supraventricular tachycardia PAC (premature atrial contraction) Procedures ECG 12 Lead Lois Holm MD [address] [facility], [address] [place] [address] Referral ID Status Reason Start Date Expiration Date V isits Requested Visits Authorized [id number] Authorized 07/13/2023 07/12/2024 1 1 Reason Onset [...] Reason Comments Orders PAP RX. Reason Comments Wagon [facility] - Other Eds scheduling Reason Comments Med [...] GAMMAGARD LIQUID INJECTION Vera Najera MD [address] [place] [address] [address] [facility] [address] [place] [address] Referral ID Status Reason Start Date Expiration Date V isits Requested Visits Authorized [id number] Authorized 04/03/2024 10/01/2024 7 7 Reason Comments [...] Specialty Diagnoses / Procedures Referred By Nahid trna Referred To Contact Vascular Surgery Diagnoses Cold extremities Pain of lower extremity, unspecified laterality Gay Enciso, DIRECTOR OF PRECLINICAL RESEARCH-HOME HEALTH NURSE LICENSED PRACTICAL [address] [place] [address] Phone: tel:[phone] fax: Hayden Arciniega MD [address] [place] [address] Phone: tel:[phone] fax: Referral ID Status Reason Start Date Expiration Date Visits Requested Visits Authorized [id number] Pending Review Specialty Services Required 03/15/2025 1 [...] [facility], [address] [address] Phone: tel: fax: Lois Holm MD [address] [facility] [address], [address] [address] Phone: tel: fax: Referral ID Status Reason Start Date Expiration Date V isits Requested Visits Authorized [id number] Authorized 07/13/2023 07/12/2024 1 1 Reason Comments Med Change Request Reason Comments Patient Question Reason Onset Date Comments SPP Inflammatory Conditions - Medication Refill 08/17/2024 Benlysta Reason Onset Date Comments Refill Request 09/01/2024 Reason Comments Thyroid Nodule Follow up ultrasound [facility] 08/24/24 Reason Comments Megaloblastic anemia due [...] Procedures EST PATIENT Self Ny Lance MD [address] [address] Phone: tel: fax: Referral ID Status Reason Start Date Expiration Date V isits Requested Visits Authorized [id number] Pending Review 09/19/2024 12/18/2024 1 1 Reason [...] prosecute any alcohol or drug abuse patient.[facility] the event this information is protected by the Federal Confidentiality of Alcohol and Drug Abuse Patient Records regulations: The Federal rules restrict any use of the information to criminally investigate or prosecute any alcohol or drug abuse patient.[facility] HospitalIn the event this information is protected by the Federal Confidentiality of Alcohol and Drug Abuse Patient Records regulations: The Federal rules restrict any use of the information to criminally investigate or prosecute any alcohol or drug abuse patient.[facility] HospitalIn the event this information is protected by the Federal Confidentiality of Alcohol and Drug Abuse Patient Records regulations: The Federal rules restrict any use of the information to criminally investigate or prosecute any alcohol or drug abuse patient.[facility] HospitalIn the event this information is protected by the Federal Confidentiality of Alcohol and Drug Abuse Patient Records regulations: The Federal rules restrict any use of the information to criminally investigate or prosecute any alcohol or drug abuse patient.[facility] HospitalIn the event this information is protected by the Federal Confidentiality of Alcohol and Drug Abuse Patient Records regulations: The Federal rules restrict any use of the information to criminally investigate or prosecute any alcohol or drug abuse patient.[facility] HospitalIn the event this information is protected by the Federal Confidentiality of Alcohol and Drug Abuse Patient Records regulations: The Federal rules restrict any use of the information to criminally investigate or prosecute any alcohol or drug abuse patient.[facility] HospitalIn the event this information is protected by the Federal Confidentiality of Alcohol and Drug Abuse Patient Records regulations: The Federal rules restrict any use of the information to criminally investigate or prosecute any alcohol or drug abuse patient.[facility] HospitalIn the event this information is protected by the Federal Confidentiality of Alcohol and Drug Abuse Patient Records regulations: The Federal rules restrict any use of the information to criminally investigate or prosecute any alcohol or drug abuse patient.[facility] HospitalIn the event this information is protected by the Federal Confidentiality of Alcohol and Drug Abuse Patient Records regulations: The Federal rules restrict any use of the information to criminally investigate or prosecute any alcohol or drug abuse patient.[facility] HospitalIn the event this information is protected by the Federal Confidentiality of Alcohol and Drug Abuse Patient Records regulations: The Federal rules restrict any use of the information to criminally investigate or prosecute any alcohol or drug abuse patient.[facility] HospitalIn the event this information is protected by the Federal Confidentiality of Alcohol and Drug Abuse Patient Records regulations: The Federal rules restrict any use of the information to criminally investigate or prosecute any alcohol or drug abuse patient.[facility] HospitalIn the event this information is protected by the Federal Confidentiality of Alcohol and Drug Abuse Patient Records regulations: The Federal rules restrict any use of the information to criminally investigate or prosecute any alcohol or drug abuse patient.[facility] HospitalIn the event this information is protected by the Federal Confidentiality of Alcohol and Drug Abuse Patient Records regulations: The Federal rules restrict any use of the information to criminally investigate or prosecute any alcohol or drug abuse patient.[facility] HospitalIn the event this information is protected by the Federal Confidentiality of Alcohol and Drug Abuse Patient Records regulations: The Federal rules restrict any use of the information to criminally investigate or prosecute any alcohol or drug abuse patient.[facility] HospitalIn the event this information is protected by the Federal Confidentiality of Alcohol and Drug Abuse Patient Records regulations: The Federal rules restrict any use of the information to criminally investigate or prosecute any alcohol or drug abuse patient.[facility] HospitalIn the event this information is protected by the Federal Confidentiality of Alcohol and Drug Abuse Patient Records regulations: The Federal rules restrict any use of the information to criminally investigate or prosecute any alcohol or drug abuse patient.[facility] HospitalIn the event this information is protected by the Federal Confidentiality of Alcohol and Drug Abuse Patient Records regulations: The Federal rules restrict any use of the information to criminally investigate or prosecute any alcohol or drug abuse patient.[facility] HospitalIn the event this information is protected by the Federal Confidentiality of Alcohol and Drug Abuse Patient Records regulations: The Federal rules restrict any use of the information to criminally investigate or prosecute any alcohol or drug abuse patient.[facility] HospitalIn the event this information is protected by the Federal Confidentiality of Alcohol and Drug Abuse Patient Records regulations: The Federal rules restrict any use of the information to criminally investigate or prosecute any alcohol or drug abuse patient.[facility] HospitalIn the event this information is protected by the Federal Confidentiality of Alcohol and Drug Abuse Patient Records regulations: The Federal rules restrict any use of the information to criminally investigate or prosecute any alcohol or drug abuse patient.[facility] HospitalIn the event this information is protected by the Federal Confidentiality of Alcohol and Drug Abuse Patient Records regulations: The Federal rules restrict any use of the information to criminally investigate or prosecute any alcohol or drug abuse patient.[facility] HospitalIn the event this information is protected by the Federal Confidentiality of Alcohol and Drug Abuse Patient Records regulations: The Federal rules restrict any use of the information to criminally investigate or prosecute any alcohol or drug abuse patient.[facility] HospitalIn the event this information is protected by the Federal Confidentiality of Alcohol and Drug Abuse Patient Records regulations: The Federal rules restrict any use of the information to criminally investigate or prosecute any alcohol or drug abuse patient.[facility] HospitalIn the event this information is protected by the Federal Confidentiality of Alcohol and Drug Abuse Patient Records regulations: The Federal rules restrict any use of the information to criminally investigate or prosecute any alcohol or drug abuse patient.[facility] HospitalIn the event this information is protected by the Federal Confidentiality of Alcohol and Drug Abuse Patient Records regulations: The Federal rules restrict any use of the information to criminally investigate or prosecute any alcohol or drug abuse patient.[facility] HospitalIn the event this information is protected by the Federal Confidentiality of Alcohol and Drug Abuse Patient Records regulations: The Federal rules restrict any use of the information to criminally investigate or prosecute any alcohol or drug abuse patient.[facility] HospitalIn the event this information is protected by the Federal Confidentiality of Alcohol and Drug Abuse Patient Records regulations: The Federal rules restrict any use of the information to criminally investigate or prosecute any alcohol or drug abuse patient.[facility] HospitalIn the event this information is protected by the Federal Confidentiality of Alcohol and Drug Abuse Patient Records regulations: The Federal rules restrict any use of the information to criminally investigate or prosecute any alcohol or drug abuse patient.[facility] HospitalIn the event this information is protected by the Federal Confidentiality of Alcohol and Drug Abuse Patient Records regulations: The Federal rules restrict any use of the information to criminally investigate or prosecute any alcohol or drug abuse patient.[facility] HospitalIn the event this information is protected by the Federal Confidentiality of Alcohol and Drug Abuse Patient Records regulations: The Federal rules restrict any use of the information to criminally investigate or prosecute any alcohol or drug abuse patient.[facility] HospitalIn the event this information is protected by the Federal Confidentiality of Alcohol and Drug Abuse Patient Records regulations: The Federal rules restrict any use of the information to criminally investigate or prosecute any alcohol or drug abuse patient.[facility] HospitalIn the event this information is protected by the Federal Confidentiality of Alcohol and Drug Abuse Patient Records regulations: The Federal rules restrict any use of the information to criminally investigate or prosecute any alcohol or drug abuse patient.[facility] HospitalIn the event this information is protected by the Federal Confidentiality of Alcohol and Drug Abuse Patient Records regulations: The Federal rules restrict any use of the information to criminally investigate or prosecute any alcohol or drug abuse patient.[facility] HospitalIn the event this information is protected by the Federal Confidentiality of Alcohol and Drug Abuse Patient Records regulations: The Federal rules restrict any use of the information to criminally investigate or prosecute any alcohol or drug abuse patient.[facility] HospitalIn the event this information is protected by the Federal Confidentiality of Alcohol and Drug Abuse Patient Records regulations: The Federal rules restrict any use of the information to criminally investigate or prosecute any alcohol or drug abuse patient.[facility] HospitalIn the event this information is protected by the Federal Confidentiality of Alcohol and Drug Abuse Patient Records regulations: The Federal rules restrict any use of the information to criminally investigate or prosecute any alcohol or drug abuse patient.[facility] HospitalIn the event this information is protected by the Federal Confidentiality of Alcohol and Drug Abuse Patient Records regulations: The Federal rules restrict any use of the information to criminally investigate or prosecute any alcohol or drug abuse patient.[facility] HospitalIn the event this information is protected by the Federal Confidentiality of Alcohol and Drug Abuse Patient Records regulations: The Federal rules restrict any use of the information to criminally investigate or prosecute any alcohol or drug abuse patient.[facility] HospitalIn the event this information is protected by the Federal Confidentiality of Alcohol and Drug Abuse Patient Records regulations: The Federal rules restrict any use of the information to criminally investigate or prosecute any alcohol or drug abuse patient.[facility] HospitalIn the event this information is protected by the Federal Confidentiality of Alcohol and Drug Abuse Patient Records regulations: The Federal rules restrict any use of the information to criminally investigate or prosecute any alcohol or drug abuse patient.[facility] HospitalIn the event this information is protected by the Federal Confidentiality of Alcohol and Drug Abuse Patient Records regulations: The Federal rules restrict any use of the information to criminally investigate or prosecute any alcohol or drug abuse patient.[facility] HospitalIn the event this information is protected by the Federal Confidentiality of Alcohol and Drug Abuse Patient Records regulations: The Federal rules restrict any use of the information to criminally investigate or prosecute any alcohol or drug abuse patient.[facility] HospitalIn the event this information is protected by the Federal Confidentiality of Alcohol and Drug Abuse Patient Records regulations: The Federal rules restrict any use of the information to criminally investigate or prosecute any alcohol or drug abuse patient.[facility] HospitalIn the event this information is protected by the Federal Confidentiality of Alcohol and Drug Abuse Patient Records regulations: The Federal rules restrict any use of the information to criminally investigate or prosecute any alcohol or drug abuse patient.[facility] HospitalIn the event this information is protected by the Federal Confidentiality of Alcohol and Drug Abuse Patient Records regulations: The Federal rules restrict any use of the information to criminally investigate or prosecute any alcohol or drug abuse patient.[facility] HospitalIn the event this information is protected by the Federal Confidentiality of Alcohol and Drug Abuse Patient Records regulations: The Federal rules restrict any use of the information to criminally investigate or prosecute any alcohol or drug abuse patient.[facility] HospitalIn the event this information is protected by the Federal Confidentiality of Alcohol and Drug Abuse Patient Records regulations: The Federal rules restrict any use of the information to criminally investigate or prosecute any alcohol or drug abuse patient.[facility] HospitalIn the event this information is protected by the Federal Confidentiality of Alcohol and Drug Abuse Patient Records regulations: The Federal rules restrict any use of the information to criminally investigate or prosecute any alcohol or drug abuse patient.[facility] HospitalIn the event this information is protected by the Federal Confidentiality of Alcohol and Drug Abuse Patient Records regulations: The Federal rules restrict any use of the information to criminally investigate or prosecute any alcohol or drug abuse patient.[facility] HospitalIn the event this information is protected by the Federal Confidentiality of Alcohol and Drug Abuse Patient Records regulations: The Federal rules restrict any use of the information to criminally investigate or prosecute any alcohol or drug abuse patient.[facility] HospitalIn the event this information is protected by the Federal Confidentiality of Alcohol and Drug Abuse Patient Records regulations: The Federal rules restrict any use of the information to criminally investigate or prosecute any alcohol or drug abuse patient.[facility] HospitalIn the event this information is protected by the Federal Confidentiality of Alcohol and Drug Abuse Patient Records regulations: The Federal rules restrict any use of the information to criminally investigate or prosecute any alcohol or drug abuse patient.[facility] HospitalIn the event this information is protected by the Federal Confidentiality of Alcohol and Drug Abuse Patient Records regulations: The Federal rules restrict any use of the information to criminally investigate or prosecute any alcohol or drug abuse patient.[facility] HospitalIn the event this information is protected by the Federal Confidentiality of Alcohol and Drug Abuse Patient Records regulations: The Federal rules restrict any use of the information to criminally investigate or prosecute any alcohol or drug abuse patient.[facility] HospitalIn the event this information is protected by the Federal Confidentiality of Alcohol and Drug Abuse Patient Records regulations: The Federal rules restrict any use of the information to criminally investigate or prosecute any alcohol or drug abuse patient.[facility] HospitalIn the event this information is protected by the Federal Confidentiality of Alcohol and Drug Abuse Patient Records regulations: The Federal rules restrict any use of the information to criminally investigate or prosecute any alcohol or drug abuse patient.[facility] HospitalIn the event this information is protected by the Federal Confidentiality of Alcohol and Drug Abuse Patient Records regulations: The Federal rules restrict any use of the information to criminally investigate or prosecute any alcohol or drug abuse patient.[facility] HospitalIn the event this information is protected by the Federal Confidentiality of Alcohol and Drug Abuse Patient Records regulations: The Federal rules restrict any use of the information to criminally investigate or prosecute any alcohol or drug abuse patient.[facility] HospitalIn the event this information is protected by the Federal Confidentiality of Alcohol and Drug Abuse Patient Records regulations: The Federal rules restrict any use of the information to criminally investigate or prosecute any alcohol or drug abuse patient.[facility] HospitalIn the event this information is protected by the Federal Confidentiality of Alcohol and Drug Abuse Patient Records regulations: The Federal rules restrict any use of the information to criminally investigate or prosecute any alcohol or drug abuse patient.[facility] HospitalIn the event this information is protected by the Federal Confidentiality of Alcohol and Drug Abuse Patient Records regulations: The Federal rules restrict any use of the information to criminally investigate or prosecute any alcohol or drug abuse patient.[facility] HospitalIn the event this information is protected by the Federal Confidentiality of Alcohol and Drug Abuse Patient Records regulations: The Federal rules restrict any use of the information to criminally investigate or prosecute any alcohol or drug abuse patient.[facility] HospitalIn the event this information is protected by the Federal Confidentiality of Alcohol and Drug Abuse Patient Records regulations: The Federal rules restrict any use of the information to criminally investigate or prosecute any alcohol or drug abuse patient.[facility] HospitalIn the event this information is protected by the Federal Confidentiality of Alcohol and Drug Abuse Patient Records regulations: The Federal rules restrict any use of the information to criminally investigate or prosecute any alcohol or drug abuse patient.[facility] HospitalIn the event this information is protected by the Federal Confidentiality of Alcohol and Drug Abuse Patient Records regulations: The Federal rules restrict any use of the information to criminally investigate or prosecute any alcohol or drug abuse patient.[facility] HospitalIn the event this information is protected by the Federal Confidentiality of Alcohol and Drug Abuse Patient Records regulations: The Federal rules restrict any use of the information to criminally investigate or prosecute any alcohol or drug abuse patient.[facility] HospitalIn the event this information is protected by the Federal Confidentiality of Alcohol and Drug Abuse Patient Records regulations: The Federal rules restrict any use of the information to criminally investigate or prosecute any alcohol or drug abuse patient.[facility] the event this information is protected by the Federal Confidentiality of Alcohol and Drug Abuse Patient Records regulations: The Federal rules restrict any use of the information to criminally investigate or prosecute any alcohol or drug abuse patient.[facility] HospitalIn the event this information is protected by the Federal Confidentiality of Alcohol and Drug Abuse Patient Records regulations: The Federal rules restrict any use of the information to criminally investigate or prosecute any alcohol or drug abuse patient.[facility] HospitalIn the event this information is protected by the Federal Confidentiality of Alcohol and Drug Abuse Patient Records regulations: The Federal rules restrict any use of the information to criminally investigate or prosecute any alcohol or drug abuse patient.[facility] HospitalIn the event this information is protected by the Federal Confidentiality of Alcohol and Drug Abuse Patient Records regulations: The Federal rules restrict any use of the information to criminally investigate or prosecute any alcohol or drug abuse patient.[facility] HospitalIn the event this information is protected by the Federal Confidentiality of Alcohol and Drug Abuse Patient Records regulations: The Federal rules restrict any use of the information to criminally investigate or prosecute any alcohol or drug abuse patient.[facility] HospitalIn the event this information is protected by the Federal Confidentiality of Alcohol and Drug Abuse Patient Records regulations: The Federal rules restrict any use of the information to criminally investigate or prosecute any alcohol or drug abuse patient.[facility] HospitalIn the event this information is protected by the Federal Confidentiality of Alcohol and Drug Abuse Patient Records regulations: The Federal rules restrict any use of the information to criminally investigate or prosecute any alcohol or drug abuse patient.[facility] HospitalIn the event this information is protected by the Federal Confidentiality of Alcohol and Drug Abuse Patient Records regulations: The Federal rules restrict any use of the information to criminally investigate or prosecute any alcohol or drug abuse patient.[facility] HospitalIn the event this information is protected by the Federal Confidentiality of Alcohol and Drug Abuse Patient Records regulations: The Federal rules restrict any use of the information to criminally investigate or prosecute any alcohol or drug abuse patient.[facility] HospitalIn the event this information is protected by the Federal Confidentiality of Alcohol and Drug Abuse Patient Records regulations: The Federal rules restrict any use of the information to criminally investigate or prosecute any alcohol or drug abuse patient.[facility] HospitalIn the event this information is protected by the Federal Confidentiality of Alcohol and Drug Abuse Patient Records regulations: The Federal rules restrict any use of the information to criminally investigate or prosecute any alcohol or drug abuse patient.[facility] HospitalIn the event this information is protected by the Federal Confidentiality of Alcohol and Drug Abuse Patient Records regulations: The Federal rules restrict any use of the information to criminally investigate or prosecute any alcohol or drug abuse patient.[facility] HospitalIn the event this information is protected by the Federal Confidentiality of Alcohol and Drug Abuse Patient Records regulations: The Federal rules restrict any use of the information to criminally investigate or prosecute any alcohol or drug abuse patient.[facility] HospitalIn the event this information is protected by the Federal Confidentiality of Alcohol and Drug Abuse Patient Records regulations: The Federal rules restrict any use of the information to criminally investigate or prosecute any alcohol or drug abuse patient.[facility] HospitalIn the event this information is protected by the Federal Confidentiality of Alcohol and Drug Abuse Patient Records regulations: The Federal rules restrict any use of the information to criminally investigate or prosecute any alcohol or drug abuse patient.[facility] HospitalIn the event this information is protected by the Federal Confidentiality of Alcohol and Drug Abuse Patient Records regulations: The Federal rules restrict any use of the information to criminally investigate or prosecute any alcohol or drug abuse patient.[facility] HospitalIn the event this information is protected by the Federal Confidentiality of Alcohol and Drug Abuse Patient Records regulations: The Federal rules restrict any use of the information to criminally investigate or prosecute any alcohol or drug abuse patient.[facility] HospitalIn the event this information is protected by the Federal Confidentiality of Alcohol and Drug Abuse Patient Records regulations: The Federal rules restrict any use of the information to criminally investigate or prosecute any alcohol or drug abuse patient.[facility] HospitalIn the event this information is protected by the Federal Confidentiality of Alcohol and Drug Abuse Patient Records regulations: The Federal rules restrict any use of the information to criminally investigate or prosecute any alcohol or drug abuse patient.[facility] HospitalIn the event this information is protected by the Federal Confidentiality of Alcohol and Drug Abuse Patient Records regulations: The Federal rules restrict any use of the information to criminally investigate or prosecute any alcohol or drug abuse patient.[facility] HospitalIn the event this information is protected by the Federal Confidentiality of Alcohol and Drug Abuse Patient Records regulations: The Federal rules restrict any use of the information to criminally investigate or prosecute any alcohol or drug abuse patient.[facility] HospitalIn the event this information is protected by the Federal Confidentiality of Alcohol and Drug Abuse Patient Records regulations: The Federal rules restrict any use of the information to criminally investigate or prosecute any alcohol or drug abuse patient.[facility] HospitalIn the event this information is protected by the Federal Confidentiality of Alcohol and Drug Abuse Patient Records regulations: The Federal rules restrict any use of the information to criminally investigate or prosecute any alcohol or drug abuse patient.[facility] HospitalIn the event this information is protected by the Federal Confidentiality of Alcohol and Drug Abuse Patient Records regulations: The Federal rules restrict any use of the information to criminally investigate or prosecute any alcohol or drug abuse patient.[facility] HospitalIn the event this information is protected by the Federal Confidentiality of Alcohol and Drug Abuse Patient Records regulations: The Federal rules restrict any use of the information to criminally investigate or prosecute any alcohol or drug abuse patient.[facility] HospitalIn the event this information is protected by the Federal Confidentiality of Alcohol and Drug Abuse Patient Records regulations: The Federal rules restrict any use of the information to criminally investigate or prosecute any alcohol or drug abuse patient.[facility] HospitalIn the event this information is protected by the Federal Confidentiality of Alcohol and Drug Abuse Patient Records regulations: The Federal rules restrict any use of the information to criminally investigate or prosecute any alcohol or drug abuse patient.[facility] HospitalIn the event this information is protected by the Federal Confidentiality of Alcohol and Drug Abuse Patient Records regulations: The Federal rules restrict any use of the information to criminally investigate or prosecute any alcohol or drug abuse patient.[facility] HospitalIn the event this information is protected by the Federal Confidentiality of Alcohol and Drug Abuse Patient Records regulations: The Federal rules restrict any use of the information to criminally investigate or prosecute any alcohol or drug abuse patient.[facility] HospitalIn the event this information is protected by the Federal Confidentiality of Alcohol and Drug Abuse Patient Records regulations: The Federal rules restrict any use of the information to criminally investigate or prosecute any alcohol or drug abuse patient.[facility] HospitalIn the event this information is protected by the Federal Confidentiality of Alcohol and Drug Abuse Patient Records regulations: The Federal rules restrict any use of the information to criminally investigate or prosecute any alcohol or drug abuse patient.[facility] HospitalIn the event this information is protected by the Federal Confidentiality of Alcohol and Drug Abuse Patient Records regulations: The Federal rules restrict any use of the information to criminally investigate or prosecute any alcohol or drug abuse patient.[facility] HospitalIn the event this information is protected by the Federal Confidentiality of Alcohol and Drug Abuse Patient Records regulations: The Federal rules restrict any use of the information to criminally investigate or prosecute any alcohol or drug abuse patient.[facility] HospitalIn the event this information is protected by the Federal Confidentiality of Alcohol and Drug Abuse Patient Records regulations: The Federal rules restrict any use of the information to criminally investigate or prosecute any alcohol or drug abuse patient.[facility] HospitalIn the event this information is protected by the Federal Confidentiality of Alcohol and Drug Abuse Patient Records regulations: The Federal rules restrict any use of the information to criminally investigate or prosecute any alcohol or drug abuse patient.[facility] HospitalIn the event this information is protected by the Federal Confidentiality of Alcohol and Drug Abuse Patient Records regulations: The Federal rules restrict any use of the information to criminally investigate or prosecute any alcohol or drug abuse patient.[facility] HospitalIn the event this information is protected by the Federal Confidentiality of Alcohol and Drug Abuse Patient Records regulations: The Federal rules restrict any use of the information to criminally investigate or prosecute any alcohol or drug abuse patient.[facility] HospitalIn the event this information is protected by the Federal Confidentiality of Alcohol and Drug Abuse Patient Records regulations: The Federal rules restrict any use of the information to criminally investigate or prosecute any alcohol or drug abuse patient.[facility] HospitalIn the event this information is protected by the Federal Confidentiality of Alcohol and Drug Abuse Patient Records regulations: The Federal rules restrict any use of the information to criminally investigate or prosecute any alcohol or drug abuse patient.[facility] HospitalIn the event this information is protected by the Federal Confidentiality of Alcohol and Drug Abuse Patient Records regulations: The Federal rules restrict any use of the information to criminally investigate or prosecute any alcohol or drug abuse patient.[facility] HospitalIn the event this information is protected by the Federal Confidentiality of Alcohol and Drug Abuse Patient Records regulations: The Federal rules restrict any use of the information to criminally investigate or prosecute any alcohol or drug abuse patient.[facility] HospitalIn the event this information is protected by the Federal Confidentiality of Alcohol and Drug Abuse Patient Records regulations: The Federal rules restrict any use of the information to criminally investigate or prosecute any alcohol or drug abuse patient.[facility] HospitalIn the event this information is protected by the Federal Confidentiality of Alcohol and Drug Abuse Patient Records regulations: The Federal rules restrict any use of the information to criminally investigate or prosecute any alcohol or drug abuse patient.[facility] HospitalIn the event this information is protected by the Federal Confidentiality of Alcohol and Drug Abuse Patient Records regulations: The Federal rules restrict any use of the information to criminally investigate or prosecute any alcohol or drug abuse patient.[facility] HospitalIn the event this information is protected by the Federal Confidentiality of Alcohol and Drug Abuse Patient Records regulations: The Federal rules restrict any use of the information to criminally investigate or prosecute any alcohol or drug abuse patient.[facility] HospitalIn the event this information is protected by the Federal Confidentiality of Alcohol and Drug Abuse Patient Records regulations: The Federal rules restrict any use of the information to criminally investigate or prosecute any alcohol or drug abuse patient.[facility] HospitalIn the event this information is protected by the Federal Confidentiality of Alcohol and Drug Abuse Patient Records regulations: The Federal rules restrict any use of the information to criminally investigate or prosecute any alcohol or drug abuse patient.[facility] HospitalIn the event this information is protected by the Federal Confidentiality of Alcohol and Drug Abuse Patient Records regulations: The Federal rules restrict any use of the information to criminally investigate or prosecute any alcohol or drug abuse patient.[facility] HospitalIn the event this information is protected by the Federal Confidentiality of Alcohol and Drug Abuse Patient Records regulations: The Federal rules restrict any use of the information to criminally investigate or prosecute any alcohol or drug abuse patient.[facility] HospitalIn the event this information is protected by the Federal Confidentiality of Alcohol and Drug Abuse Patient Records regulations: The Federal rules restrict any use of the information to criminally investigate or prosecute any alcohol or drug abuse patient.[facility] HospitalIn the event this information is protected by the Federal Confidentiality of Alcohol and Drug Abuse Patient Records regulations: The Federal rules restrict any use of the information to criminally investigate or prosecute any alcohol or drug abuse patient.[facility] HospitalIn the event this information is protected by the Federal Confidentiality of Alcohol and Drug Abuse Patient Records regulations: The Federal rules restrict any use of the information to criminally investigate or prosecute any alcohol or drug abuse patient.[facility] HospitalIn the event this information is protected by the Federal Confidentiality of Alcohol and Drug Abuse Patient Records regulations: The Federal rules restrict any use of the information to criminally investigate or prosecute any alcohol or drug abuse patient.[facility] HospitalIn the event this information is protected by the Federal Confidentiality of Alcohol and Drug Abuse Patient Records regulations: The Federal rules restrict any use of the information to criminally investigate or prosecute any alcohol or drug abuse patient.[facility] HospitalIn the event this information is protected by the Federal Confidentiality of Alcohol and Drug Abuse Patient Records regulations: The Federal rules restrict any use of the information to criminally investigate or prosecute any alcohol or drug abuse patient.[facility] HospitalIn the event this information is protected by the Federal Confidentiality of Alcohol and Drug Abuse Patient Records regulations: The Federal rules restrict any use of the information to criminally investigate or prosecute any alcohol or drug abuse patient.[facility] HospitalIn the event this information is protected by the Federal Confidentiality of Alcohol and Drug Abuse Patient Records regulations: The Federal rules restrict any use of the information to criminally investigate or prosecute any alcohol or drug abuse patient.[facility] HospitalIn the event this information is protected by the Federal Confidentiality of Alcohol and Drug Abuse Patient Records regulations: The Federal rules restrict any use of the information to criminally investigate or prosecute any alcohol or drug abuse patient.[facility] HospitalIn the event this information is protected by the Federal Confidentiality of Alcohol and Drug Abuse Patient Records regulations: The Federal rules restrict any use of the information to criminally investigate or prosecute any alcohol or drug abuse patient.[facility] HospitalIn the event this information is protected by the Federal Confidentiality of Alcohol and Drug Abuse Patient Records regulations: The Federal rules restrict any use of the information to criminally investigate or prosecute any alcohol or drug abuse patient.[facility] HospitalIn the event this information is protected by the Federal Confidentiality of Alcohol and Drug Abuse Patient Records regulations: The Federal rules restrict any use of the information to criminally investigate or prosecute any alcohol or drug abuse patient.[facility] HospitalIn the event this information is protected by the Federal Confidentiality of Alcohol and Drug Abuse Patient Records regulations: The Federal rules restrict any use of the information to criminally investigate or prosecute any alcohol or drug abuse patient.[facility] HospitalIn the event this information is protected by the Federal Confidentiality of Alcohol and Drug Abuse Patient Records regulations: The Federal rules restrict any use of the information to criminally investigate or prosecute any alcohol or drug abuse patient.[facility] HospitalIn the event this information is protected by the Federal Confidentiality of Alcohol and Drug Abuse Patient Records regulations: The Federal rules restrict any use of the information to criminally investigate or prosecute any alcohol or drug abuse patient.[facility] HospitalIn the event this information is protected by the Federal Confidentiality of Alcohol and Drug Abuse Patient Records regulations: The Federal rules restrict any use of the information to criminally investigate or prosecute any alcohol or drug abuse patient.[facility] HospitalIn the event this information is protected by the Federal Confidentiality of Alcohol and Drug Abuse Patient Records regulations: The Federal rules restrict any use of the information to criminally investigate or prosecute any alcohol or drug abuse patient.[facility] HospitalIn the event this information is protected by the Federal Confidentiality of Alcohol and Drug Abuse Patient Records regulations: The Federal rules restrict any use of the information to criminally investigate or prosecute any alcohol or drug abuse patient.[facility] HospitalIn the event this information is protected by the Federal Confidentiality of Alcohol and Drug Abuse Patient Records regulations: The Federal rules restrict any use of the information to criminally investigate or prosecute any alcohol or drug abuse patient.[facility] HospitalIn the event this information is protected by the Federal Confidentiality of Alcohol and Drug Abuse Patient Records regulations: The Federal rules restrict any use of the information to criminally investigate or prosecute any alcohol or drug abuse patient.[facility] HospitalIn the event this information is protected by the Federal Confidentiality of Alcohol and Drug Abuse Patient Records regulations: The Federal rules restrict any use of the information to criminally investigate or prosecute any alcohol or drug abuse patient.[facility] HospitalIn the event this information is protected by the Federal Confidentiality of Alcohol and Drug Abuse Patient Records regulations: The Federal rules restrict any use of the information to criminally investigate or prosecute any alcohol or drug abuse patient.[facility] HospitalIn the event this information is protected by the Federal Confidentiality of Alcohol and Drug Abuse Patient Records regulations: The Federal rules restrict any use of the information to criminally investigate or prosecute any alcohol or drug abuse patient.[facility] HospitalIn the event this information is protected by the Federal Confidentiality of Alcohol and Drug Abuse Patient Records regulations: The Federal rules restrict any use of the information to criminally investigate or prosecute any alcohol or drug abuse patient.[facility] HospitalIn the event this information is protected by the Federal Confidentiality of Alcohol and Drug Abuse Patient Records regulations: The Federal rules restrict any use of the information to criminally investigate or prosecute any alcohol or drug abuse patient.[facility] HospitalIn the event this information is protected by the Federal Confidentiality of Alcohol and Drug Abuse Patient Records regulations: The Federal rules restrict any use of the information to criminally investigate or prosecute any alcohol or drug abuse patient.[facility] HospitalIn the event this information is protected by the Federal Confidentiality of Alcohol and Drug Abuse Patient Records regulations: The Federal rules restrict any use of the information to criminally investigate or prosecute any alcohol or drug abuse patient.[facility] HospitalIn the event this information is protected by the Federal Confidentiality of Alcohol and Drug Abuse Patient Records regulations: The Federal rules restrict any use of the information to criminally investigate or prosecute any alcohol or drug abuse patient.[facility] HospitalIn the event this information is protected by the Federal Confidentiality of Alcohol and Drug Abuse Patient Records regulations: The Federal rules restrict any use of the information to criminally investigate or prosecute any alcohol or drug abuse patient.[facility] HospitalIn the event this information is protected by the Federal Confidentiality of Alcohol and Drug Abuse Patient Records regulations: The Federal rules restrict any use of the information to criminally investigate or prosecute any alcohol or drug abuse patient.[facility] HospitalIn the event this information is protected by the Federal Confidentiality of Alcohol and Drug Abuse Patient Records regulations: The Federal rules restrict any use of the information to criminally investigate or prosecute any alcohol or drug abuse patient.[facility] HospitalIn the event this information is protected by the Federal Confidentiality of Alcohol and Drug Abuse Patient Records regulations: The Federal rules restrict any use of the information to criminally investigate or prosecute any alcohol or drug abuse patient.[facility] HospitalIn the event this information is protected by the Federal Confidentiality of Alcohol and Drug Abuse Patient Records regulations: The Federal rules restrict any use of the information to criminally investigate or prosecute any alcohol or drug abuse patient.[facility] HospitalIn the event this information is protected by the Federal Confidentiality of Alcohol and Drug Abuse Patient Records regulations: The Federal rules restrict any use of the information to criminally investigate or prosecute any alcohol or drug abuse patient.[facility] HospitalIn the event this information is protected by the Federal Confidentiality of Alcohol and Drug Abuse Patient Records regulations: The Federal rules restrict any use of the information to criminally investigate or prosecute any alcohol or drug abuse patient.[facility] HospitalIn the event this information is protected by the Federal Confidentiality of Alcohol and Drug Abuse Patient Records regulations: The Federal rules restrict any use of the information to criminally investigate or prosecute any alcohol or drug abuse patient.[facility] HospitalIn the event this information is protected by the Federal Confidentiality of Alcohol and Drug Abuse Patient Records regulations: The Federal rules restrict any use of the information to criminally investigate or prosecute any alcohol or drug abuse patient.[facility] HospitalIn the event this information is protected by the Federal Confidentiality of Alcohol and Drug Abuse Patient Records regulations: The Federal rules restrict any use of the information to criminally investigate or prosecute any alcohol or drug abuse patient.[facility] HospitalIn the event this information is protected by the Federal Confidentiality of Alcohol and Drug Abuse Patient Records regulations: The Federal rules restrict any use of the information to criminally investigate or prosecute any alcohol or drug abuse patient.[facility] HospitalIn the event this information is protected by the Federal Confidentiality of Alcohol and Drug Abuse Patient Records regulations: The Federal rules restrict any use of the information to criminally investigate or prosecute any alcohol or drug abuse patient.[facility] HospitalIn the event this information is protected by the Federal Confidentiality of Alcohol and Drug Abuse Patient Records regulations: The Federal rules restrict any use of the information to criminally investigate or prosecute any alcohol or drug abuse patient.[facility] HospitalIn the event this information is protected by the Federal Confidentiality of Alcohol and Drug Abuse Patient Records regulations: The Federal rules restrict any use of the information to criminally investigate or prosecute any alcohol or drug abuse patient.[facility] HospitalIn the event this information is protected by the Federal Confidentiality of Alcohol and Drug Abuse Patient Records regulations: The Federal rules restrict any use of the information to criminally investigate or prosecute any alcohol or drug abuse patient.[facility] HospitalIn the event this information is protected by the Federal Confidentiality of Alcohol and Drug Abuse Patient Records regulations: The Federal rules restrict any use of the information to criminally investigate or prosecute any alcohol or drug abuse patient.[facility] HospitalIn the event this information is protected by the Federal Confidentiality of Alcohol and Drug Abuse Patient Records regulations: The Federal rules restrict any use of the information to criminally investigate or prosecute any alcohol or drug abuse patient.[facility] HospitalIn the event this information is protected by the Federal Confidentiality of Alcohol and Drug Abuse Patient Records regulations: The Federal rules restrict any use of the information to criminally investigate or prosecute any alcohol or drug abuse patient.[facility] HospitalIn the event this information is protected by the Federal Confidentiality of Alcohol and Drug Abuse Patient Records regulations: The Federal rules restrict any use of the information to criminally investigate or prosecute any alcohol or drug abuse patient.[facility] HospitalIn the event this information is protected by the Federal Confidentiality of Alcohol and Drug Abuse Patient Records regulations: The Federal rules restrict any use of the information to criminally investigate or prosecute any alcohol or drug abuse patient.[facility] HospitalIn the event this information is protected by the Federal Confidentiality of Alcohol and Drug Abuse Patient Records regulations: The Federal rules restrict any use of the information to criminally investigate or prosecute any alcohol or drug abuse patient.[facility] HospitalIn the event this information is protected by the Federal Confidentiality of Alcohol and Drug Abuse Patient Records regulations: The Federal rules restrict any use of the information to criminally investigate or prosecute any alcohol or drug abuse patient.[facility] HospitalIn the event this information is protected by the Federal Confidentiality of Alcohol and Drug Abuse Patient Records regulations: The Federal rules restrict any use of the information to criminally investigate or prosecute any alcohol or drug abuse patient.[facility] HospitalIn the event this information is protected by the Federal Confidentiality of Alcohol and Drug Abuse Patient Records regulations: The Federal rules restrict any use of the information to criminally investigate or prosecute any alcohol or drug abuse patient.[facility] HospitalIn the event this information is protected by the Federal Confidentiality of Alcohol and Drug Abuse Patient Records regulations: The Federal rules restrict any use of the information to criminally investigate or prosecute any alcohol or drug abuse patient.[facility] Care Teams (unrecognized sec tion [...] 2025 End: January 17, 2025 Margie Arnett LAB CLERK Attending Provider Active Start: January 17, 2025 End: January 17, 2025 Team Status: Active Member Role Status DELIA AlavC Primary Care Provider Active Start: January 31, 2025 Adolfo Kang MD Attending Provider Active Sta rt: January 31, 2025 Adolfo Kang MD Other Provider Active Start: January 31, 2025 Team Status: Inactive Member Role Status Dates WALESKA Galloway Primary Care Provider Active Start: February 14, 2025 End: February 14, 2025 Margie Arnett LAB CLERK Attending Provider Active Start: February 14, 2025 [...] November 04, 2023 End: November 04, 2023 Admissions Rn Relationship Specialty Start Date End Date Gay Enciso, DIRECTOR OF PRECLINICAL RESEARCH.[facility] [address] [place] [address] PCP - General Family Practice 10/24/21 Admissions Rn Relationship Specialty Start Date End Date Gay Enciso APRN.[facility] [address] [place] [address] PCP - General Family Medicine 10/24/21 Manuel Ferris MD [address] [place] [address] Referring Family Medicine 02/12/22 Admissions Rn Relationship Specialty Start Date End Date Manuel Ferris MD [address] [place] [facility] [address] PCP - General Family Medicine 02/27/22 Manuel Ferris MD [address] [place] [facility] [place] [address] Referring Family Medicine 02/12/22 Admissions Rn Relationship Specialty Start Date End Date Manuel Ferris MD [address] [place] [facility] [place] [address] PCP - General Family Medicine 02/27/22 Manuel Ferris MD [address] [place] [place] [address] Referring Family Medicine 02/12/22 Admissions Rn Relationship Specialty Start Date End Date Manuel Ferris MD [address] [place] [place] [address] PCP - General Family Medicine 02/27/22 Manuel Ferris MD [address] [place] [address] Referring Family Medicine 02/12/22 Admissions Rn Relationship Specialty Start Date End Date Manuel Ferris MD [address] [place] [address] PCP - General Family Medicine 02/27/22 Manuel Ferris MD [address] [place] [place] [address] Referring Family Medicine 02/12/22 Admissions Rn Relationship Specialty Start Date End Date Manuel Ferris MD [address] [place] [place] [address] PCP - General Family Medicine 02/27/22 Manuel Ferris MD [address] [place] [place] [address] Referring Family Medicine 02/12/22 Admissions Rn Relationship Specialty Start Date End Date Manuel Ferris MD [address] [place] [place] [address] PCP - General Family Medicine 02/27/22 Manuel Ferris MD [address] [place] [place] [address] Referring Family Medicine 02/12/22 Admissions Rn Relationship Specialty Start Date End Date Manuel Ferris MD [address] [place] [place] [address] PCP - General Family Medicine 02/27/22 Manuel Ferris MD [address] [place] [place] [address] Referring Family Medicine 02/12/22 Admissions Rn Relationship Specialty Start Date End Date Manuel Ferris MD [address] [place] [place] [address] PCP - General Family Medicine 02/27/22 Manuel Ferris MD [address] [place] [place] [address] Referring Family Medicine 02/12/22 Admissions Rn Relationship Specialty Start Date End Date Manuel Ferris MD [address] [place] [place] [address] PCP - General Family Medicine 02/27/22 Manuel Ferris MD [address] [place] [place] [address] Referring Family Medicine 02/12/22 Admissions Rn Relationship Specialty Start Date End Date Manuel Ferris MD [address] [place] [place] [address] PCP - General Family Medicine 02/27/22 Manuel Ferris MD [address] [place] [address] Referring Family Medicine 02/12/22 Admissions Rn Relationship Specialty Start Date End Date Manuel Ferris MD [address] [place] [place] [address] PCP - General Family Medicine 02/27/22 Manuel Ferris MD [address] [place] [place] [address] Referring Family Medicine 02/12/22 Admissions Rn Relationship Specialty Start Date End Date Manuel Ferris MD [address] [place] [place] [address] PCP - General Family Medicine 02/27/22 Manuel Ferris MD [address] [place] [place] [address] Referring Family Medicine 02/12/22 Admissions Rn Relationship Specialty Start Date End Date Manuel Ferris MD [address] [place] [place] [address] PCP - General Family Medicine 02/27/22 Manuel Ferris MD [address] [place] [place] [address] Referring Family Medicine 02/12/22 Admissions Rn Relationship Specialty Start Date End Date Manuel Ferris MD [address] [place] [place] [address] PCP - General Family Medicine 02/27/22 Manuel Ferris MD [address] [place] [place] [address] Referring Family Medicine 02/12/22 Admissions Rn Relationship Specialty Start Date End Date Manuel Ferris MD [address] [place] [place] [address] PCP - General Family Medicine 02/27/22 Manuel Ferris MD [address] [place] [place] [address] Referring Family Medicine 02/12/22 Admissions Rn Relationship Specialty Start Date End Date Manuel Ferris MD [address] [place] [place] [address] PCP - General Family Medicine 02/27/22 Manuel Ferris MD [address] [place] [place] [address] Referring Family Medicine 02/12/22 Admissions Rn Relationship Specialty Start Date End Date Manuel Ferris MD [address] [place] [address] PCP - General Family Medicine 02/27/22 Manuel Ferris MD [address] [place] [place] [address] Referring Family Medicine 02/12/22 Admissions Rn Relationship Specialty Start Date End Date Manuel Ferris MD [address] [place] [place] [address] PCP - General Family Medicine 02/27/22 Manuel Ferris MD [address] [place] [place] [address] Referring Family Medicine 02/12/22 Admissions Rn Relationship Specialty Start Date End Date Manuel Ferris MD [address] [place] [place] [address] PCP - General Family Medicine 02/27/22 Manuel Ferris MD [address] [place] [address] Referring Family Medicine 02/12/22 Admissions Rn Relationship Specialty Start Date End Date Manuel Ferris MD [address] [place] [address] PCP - General Family Medicine 02/27/22 Manuel Ferris MD [address] [place] [id number] Referring Family Medicine 02/12/22 Admissions Rn Relationship Specialty Start Date End Date Manuel Ferris MD [address] [place] [address] PCP - General Family Medicine 02/27/22 Manuel Ferris MD [address] [place] [id number] Referring Family Medicine 02/12/22 Admissions Rn Relationship Specialty Start Date End Date Manuel Ferris MD PCP - General Family Medicine 02/27/22 Manuel Ferris MD Referring Family Medicine 02/12/22 Admissions Rn Relationship Specialty Start Date End Date Manuel Ferris MD PCP - General Family Medicine 02/27/22 Manuel Ferris MD Referring Family Medicine 02/12/22 Admissions Rn Relationship Specialty Start Date End Date Manuel Ferris MD PCP - General Family Medicine 02/27/22 Manuel Ferris MD Referring Family Medicine 02/12/22 Admissions Rn Relationship Specialty Start Date End Date Manuel Ferris MD PCP - General Family Medicine 02/27/22 Manuel Ferris MD Referring Family Medicine 02/12/22 Admissions Rn Relationship Specialty Start Date End Date Manuel Ferris MD PCP - General Family Medicine 02/27/22 Manuel Ferris MD Referring Family Medicine 02/12/22 Admissions Rn Relationship Specialty Start Date End Date Manuel Ferris MD PCP - General Family Medicine 02/27/22 Manuel Ferris MD Referring Family Medicine 02/12/22 Admissions Rn Relationship Specialty Start Date End Date Manuel Ferris MD PCP - General Family Medicine 02/27/22 Manuel Ferris MD Referring Family Medicine 02/12/22 Admissions Rn Relationship Specialty Start Date End Date Manuel Ferris MD PCP - General Family Medicine 02/27/22 Manuel Ferris MD Referring Family Medicine 02/12/22 Admissions Rn Relationship Specialty Start Date End Date Manuel Ferris MD PCP - General Family Medicine 02/27/22 Manuel Ferris MD Referring Family Medicine 02/12/22 Admissions Rn Relationship Specialty Start Date End Date Manuel Ferris MD PCP - General Family Medicine 02/27/22 Manuel Ferris MD Referring Family Medicine 02/12/22 Admissions Rn Relationship Specialty Start Date End Date Manuel Ferris MD PCP - General Family Medicine 02/27/22 Manuel Ferris MD Referring Family Medicine 02/12/22 Admissions Rn Relationship Specialty Start Date End Date Manuel Ferris MD PCP - General Family Medicine 02/27/22 Manuel Ferris MD Referring Family Medicine 02/12/22 Admissions Rn Relationship Specialty Start Date End Date Manuel Ferris MD PCP - General Family Medicine 02/27/22 Manuel Ferris MD Referring Family Medicine 02/12/22 Admissions Rn Relationship Specialty Start Date End Date Manuel Ferris MD PCP - General Family Medicine 02/27/22 Manuel Ferris MD Referring Family Medicine 02/12/22 Admissions Rn Relationship Specialty Start Date End Date Manuel Ferris MD PCP - General Family Medicine 02/27/22 Manuel Ferris MD Referring Family Medicine 02/12/22 Admissions Rn Relationship Specialty Start Date End Date Manuel Ferris MD PCP - General Family Medicine 02/27/22 Manuel Ferris MD Referring Family Medicine 02/12/22 Admissions Rn Relationship Specialty Start Date End Date Manuel Ferris MD PCP - General Family Medicine 02/27/22 Manuel Ferris MD Referring Family Medicine 02/12/22 Admissions Rn Relationship Specialty Start Date End Date Manuel Ferris MD PCP - General Family Medicine 02/27/22 Manuel Ferris MD Referring Family Medicine 02/12/22 Admissions Rn Relationship Specialty Start Date End Date Manuel Ferris MD PCP - General Family Medicine 02/27/22 Manuel Ferris MD Referring Family Medicine 02/12/22 Admissions Rn Relationship Specialty Start Date End Date Manuel Ferris MD PCP - General Family Medicine 02/27/22 Manuel Ferris MD Referring Family Medicine 02/12/22 Admissions Rn Relationship Specialty Start Date End Date Manuel Ferris MD PCP - General Family Medicine 02/27/22 Manuel Ferris MD Referring Family Medicine 02/12/22 Admissions Rn Relationship Specialty Start Date End Date Manuel Ferris MD PCP - General Family Medicine 02/27/22 Manuel Ferris MD Referring Family Medicine 02/12/22 Admissions Rn Relationship Specialty Start Date End Date Manuel Ferris MD PCP - General Family Medicine 02/27/22 Manuel Ferris MD Referring Family Medicine 02/12/22 Admissions Rn Relationship Specialty Start Date End Date Manuel Ferris MD PCP - General Family Medicine 02/27/22 Manuel Ferris MD Referring Family Medicine 02/12/22 Admissions Rn Relationship Specialty Start Date End Date Manuel Ferris MD PCP - General Family Medicine 02/27/22 Manuel Ferris MD Referring Family Medicine 02/12/22 Admissions Rn Relationship Specialty Start Date End Date Manuel Ferris MD PCP - General Family Medicine 02/27/22 Manuel Ferris MD Referring Family Medicine 02/12/22 Admissions Rn Relationship Specialty Start Date End Date Charles Nicole DO [address] [place] [id number] PCP - General 10/22/18 Michelle Jasmine, DIRECTOR OF PRECLINICAL RESEARCH-[facility] [address] [address] Nurse Practitioner Cardiology 06/08/23 Admissions Rn Relationship Specialty Start Date End Date Gay Enciso, DIRECTOR OF PRECLINICAL RESEARCH-[facility] [address] [place] [address] PCP - General 07/13/23 Michelle Jasmine, DIRECTOR OF PRECLINICAL RESEARCH-[facility]ALTH NURSE [facility]ACT[facility] [address] [address] Nurse Practitioner Cardiology 06/08/23 Aurora Patel MD [address] [address] Consulting Physician Cardiology 06/23/23 Admissions Rn Relationship Specialty Start Date End Date Manuel Ferris MD PCP - General Family Medicine 02/27/22 Manuel Ferris MD Referring Family Medicine 02/12/22 Admissions Rn Relationship Specialty Start Date End Date Manuel Ferris MD PCP - General Family Medicine 02/27/22 Manuel Ferris MD Referring Family Medicine 02/12/22 Team Status: Active Member Role Status Dates Lui Salomon MD Primary Care Provider Active Start: July 28, 2023 Virgil Green MD Attending Provider Active S tart: July 28, 2023 Admissions Rn Relationship Specialty Start Date End Date Manuel Ferris MD PCP - General Family Medicine 02/27/22 Manuel Ferris MD Referring Family Medicine 02/12/22 Team Status: Inactive Member Role Status Dates Lui Salomon MD Primary Care Provider Active Start: December 16, 2023 End: December 16, 2023 Mirela Kelsey MD Attending Provider Active Sta rt: December 16, 2023 End: December 16, 2023 Admissions Rn Relationship Specialty Start Date End Date Manuel Ferris MD PCP - General Family Medicine 02/27/22 Manuel Ferris MD Referring Family Medicine 02/12/22 Admissions Rn Relationship Specialty Start Date End Date Manuel Ferris MD PCP - General Family Medicine 02/27/22 Manuel Ferris MD Referring Family Medicine 02/12/22 Admissions Rn Relationship Specialty Start Date End Date Manuel Ferris MD PCP - General Family Medicine 02/27/22 Manuel Ferris MD Referring Family Medicine 02/12/22 Admissions Rn Relationship Specialty Start Date End Date Manuel [...] February 28, 2024 End: February 28, 2024 Admissions Rn Relationship Specialty Start Date End Date Charles Nicole MD [address] [place] [address] PCP - General Family Medicine 02/09/24 Team Status: Inactive Member Role Status Dates WALESKA Galloway Primary Care Provider Active Start: March 16, 2024 End: March 16, 2024 Bandar Portillo APRN Attending Provider Active Start: March 16, 2024 End: March 16, 2024 Admissions Rn Relationship Specialty Start Date End Date Charles Nicole MD [address] [place] [address] PCP - General Family Medicine 02/09/24 Admissions Rn Relationship Specialty Start Date End Date Charles Nicole MD [address] [place] [facility] [place] [address] PCP - General Family Medicine 02/09/24 Admissions Rn Relationship Specialty Start Date End Date Charles Nicole MD [address] [place] [facility] [place] [address] PCP - General Family Medicine 02/09/24 Admissions Rn Relationship Specialty Start Date End Date Charles Nicole MD [address] [facility] [place] [address] PCP - General Family Medicine 02/09/24 Admissions Rn Relationship Specialty Start Date End Date Charles Nicole MD [address] [place] [facility] [place] [address] PCP - General Family Medicine 02/09/24 Admissions Rn Relationship Specialty Start Date End Date Manuel Ferris MD PCP - General Family Medicine 02/27/22 Manuel Ferris MD Referring Family Medicine 02/12/22 Admissions Rn Relationship Specialty Start Date End Date Charles Nicole MD [address] [place] [facility] [place] [address] PCP - General Family Medicine 02/09/24 Admissions Rn Relationship Specialty Start Date End Date Charles Nicole MD [address] [place] [facility] [place] [address] PCP - General Family Medicine 02/09/24 Admissions Rn Relationship Specialty Start Date End Date Charles Nicole MD [address] [place] [address] PCP - General Family Medicine 02/09/24 Admissions Rn Relationship Specialty Start Date End Date Charles Nicole MD [address] [place] [address] PCP - General Family Medicine 02/09/24 Admissions Rn Relationship Specialty Start Date End Date Manuel Ferris MD PCP - General Family Medicine 02/27/22 Manuel Ferris MD Referring Family Medicine 02/12/22 Admissions Rn Relationship Specialty Start Date End Date Charles Nicole MD [address] [place] [address] PCP - General Family Medicine 02/09/24 Admissions Rn Relationship Specialty Start Date End Date Manuel Ferris MD PCP - General Family Medicine 02/27/22 Manuel Ferris MD Referring Family Medicine 02/12/22 Admissions Rn Relationship Specialty Start Date End Date Manuel eFrris MD PCP - General Family Medicine 02/27/22 Manuel Ferris MD Referring Family Medicine 02/12/22 Admissions Rn Relationship Specialty Start Date End Date Charles Nicole MD [address] [place] [address] PCP - General Family Medicine 02/09/24 Admissions Rn Relationship Specialty Start Date End Date Manuel Ferris MD PCP - General Family Medicine 02/27/22 Manuel Ferris MD Referring Family Medicine 02/12/22 Manuel Ferris MD [address] [place] [address] Referring Family Medicine 07/06/24 Team Status: Inactive Member Role Status Dates Gay Enciso LAB CLERK-C Primary Care Provider Active Start: July 10, 2024 End: July 10, 2024 Adolfo Kang MD Attending Provider Active Sta rt: July 10, 2024 End: July 10, 2024 Admissions Rn Relationship Specialty Start Date End Date Manuel Ferris MD PCP - General Family Medicine 02/27/22 Manuel Ferris MD Referring Family Medicine 02/12/22 Manuel Ferris MD [address] [place] [id number] Referring Family Medicine 07/06/24 Admissions Rn Relationship Specialty Start Date End Date Manuel Ferris MD PCP - General Family Medicine 02/27/22 Manuel Ferris MD Referring Family Medicine 02/12/22 Manuel Ferris MD [address] [place] [address] Referring Family Medicine 07/06/24 Team Status: Inactive Member Role Status Dates Gay Enciso , CARISSA-C Primary Care Provider Active Start: July 19, 2024 End: July 19, 2024 Adolfo Kang MD Attending Provider Active Sta rt: July 19, 2024 End: July 19, 2024 Admissions Rn Relationship Specialty Start Date End Date Gay Enciso MD [address] [place] [address] Referring Physician Family Medicine 07/18/24 Admissions Rn Relationship Specialty Start Date End Date Manuel Ferris MD PCP - General Family Medicine 02/27/22 Manuel Ferris MD Referring Family Medicine 02/12/22 Manuel Ferris MD [address] [place] [address] Referring Family Medicine 07/06/24 Admissions Rn Relationship Specialty Start Date End Date Gay Enciso MD [address] [place] [address] Referring Physician Family Medicine 07/18/24 Admissions Rn Relationship Specialty Start Date End Date Gay Enciso APRN-HOME [facility] [address] [place] [address] PCP - General 07/13/23 Michelle Jasmine APRN-HOME [facility] Nurse Practitioner Cardiology 06/08/23 Auorra Patel MD Consulting Physician Cardiology 06/23/23 Team [...] July 31, 2024 End: July 31, 2024 Admissions Rn Relationship Specialty Start Date End Date Manuel Ferris MD PCP - General Family Medicine 02/27/22 Manuel Ferris MD Referring Family Medicine 02/12/22 Manuel Ferris MD [address] [place] [address] Referring Family Medicine 07/06/24 Admissions Rn Relationship Specialty Start Date End Date Manuel Ferris MD PCP - General Family Medicine 02/27/22 Manuel Ferris MD Referring Family Medicine 02/12/22 Manuel Ferris MD [address] [place] [id number] Referring Family Medicine 07/06/24 Admissions Rn Relationship Specialty Start Date End Date Manuel Ferris MD PCP - General Family Medicine 02/27/22 Manuel Ferris MD Referring Family Medicine 02/12/22 Manuel Ferris MD [address] [place] [address] Referring Family Medicine 07/06/24 Team Status: Inactive Member Role Status Dates Gay Enciso , LAB CLERK-C Primary Care Provider Active Start: August 22, 2024 End: August 22, 2024 Adolfo Kang MD Attending Provider Active Sta rt: August 22, 2024 End: August 22, 2024 Admissions Rn Relationship Specialty Start Date End Date Gay Enciso MD [address] [place] [address] Referring Physician Family Medicine 07/18/24 Admissions Rn Relationship Specialty Start Date End Date Manuel Ferris MD PCP - General Family Medicine 02/27/22 Manuel Ferris MD Referring Family Medicine 02/12/22 Manuel Ferris MD [address] [place] [address] Referring Family Medicine 07/06/24 Admissions Rn Relationship Specialty Start Date End Date aMnuel Ferris MD PCP - General Family Medicine 02/27/22 Manuel Ferris MD Referring Family Medicine 02/12/22 Manuel Ferris MD [address] [place] [address] Referring Family Medicine 07/06/24 Admissions Rn Relationship Specialty Start Date End Date Gay Enciso MD [address] [place] [address] Referring Physician Family Medicine 07/18/24 Admissions Rn Relationship Specialty Start Date End Date Gay Enciso MD [address] [place] [address] Referring Physician Family Medicine 07/18/24 Admissions Rn Relationship Specialty Start Date End Date Manuel Ferris MD PCP - General Family Medicine 02/27/22 Manuel Ferris MD Referring Family Medicine 02/12/22 Manuel Ferris MD [address] [place] [phone] Referring Family Medicine 07/06/24 Admissions Rn Relationship Specialty Start Date End Date Manuel Ferris MD PCP - General Family Medicine 02/27/22 Manuel Ferris MD Referring Family Medicine 02/12/22 Manuel Ferris MD [address] [place] [phone] Referring Family Medicine 07/06/24 Admissions Rn Relationship Specialty Start Date End Date Manuel Ferris MD PCP - General Family Medicine 02/27/22 Manuel Ferris MD Referring Family Medicine 02/12/22 Manuel Ferris MD [address] [place] [facility] [place] [address] Referring Family Medicine 07/06/24 Admissions Rn Relationship Specialty Start Date End Date Manuel Ferris MD PCP - General Family Medicine 02/27/22 Manuel Ferris MD Referring Family Medicine 02/12/22 Manuel Ferris MD [address] [place] [address] Referring Family Medicine 07/06/24 Admissions Rn Relationship Specialty Start Date End Date Manuel Ferris MD PCP - General Family Medicine 02/27/22 Manuel Ferris MD Referring Family Medicine 02/12/22 Manuel Ferris MD [address] [place] [address] Referring Family Medicine 07/06/24 Admissions Rn Relationship Specialty Start Date End Date Manuel Ferris MD PCP - General Family Medicine 02/27/22 Manuel Ferris MD Referring Family Medicine 02/12/22 Manuel Ferris MD [address] [place] [facility] [place] [address] Referring Family Medicine 07/06/24 Admissions Rn Relationship Specialty Start Date End Date Manuel Ferris MD PCP - General Family Medicine 02/27/22 Manuel Ferris MD Referring Family Medicine 02/12/22 Manuel Ferris MD [address] [place] [address] Referring Family Medicine 07/06/24 Admissions Rn Relationship Specialty Start Date End Date Manuel Ferris MD PCP - General Family Medicine 02/27/22 Manuel Ferris MD Referring Family Medicine 02/12/22 Manuel Ferris MD [address] [place] [address] Referring Family Medicine 07/06/24 Admissions Rn Relationship Specialty Start Date End Date Manuel Ferris MD PCP - General Family Medicine 02/27/22 Manuel Ferris MD Referring Family Medicine 02/12/22 Manuel Ferris MD [address] [place] [address] Referring Family Medicine 07/06/24 Admissions Rn Relationship Specialty Start Date End Date Manuel Ferris MD PCP - General Family Medicine 02/27/22 Manuel Ferris MD Referring Family Medicine 02/12/22 Manuel Ferris MD [address] [place] [address] Referring Family Medicine 07/06/24 Admissions Rn Relationship Specialty Start Date End Date Manuel Ferris MD PCP - General Family Medicine 02/27/22 Manuel Ferris MD Referring Family Medicine 02/12/22 Manuel Ferris MD [address] [place] [address] Referring Family Medicine 07/06/24 Admissions Rn Relationship Specialty Start Date End Date Manuel Ferris MD PCP - General Family Medicine 02/27/22 Manuel Ferris MD Referring Family Medicine 02/12/22 Manuel Ferris MD [address] [place] [address] Referring Family Medicine 07/06/24 Admissions Rn Relationship Specialty Start Date End Date Manuel Ferris MD PCP - General Family Medicine 02/27/22 Manuel Ferris MD Referring Family Medicine 02/12/22 Manuel Ferris MD [address] [place] [address] Referring Family Medicine 07/06/24 Team Status: Inactive [...] November 13, 2024 End: November 13, 2024 Admissions Rn Relationship Specialty Start Date End Date Gay Enciso MD [address] [place] [address] Referring Physician Family Medicine 07/18/24 Admissions Rn Relationship Specialty Start Date End Date Manuel Ferris MD PCP - General Family Medicine 02/27/22 Manuel Ferris MD Referring Family Medicine 02/12/22 Manuel Ferris MD [address] [place] [address] Referring Family Medicine 07/06/24 Admissions Rn Relationship Specialty Start Date End Date Manuel Ferris MD PCP - General Family Medicine 02/27/22 Manuel Ferris MD Referring Family Medicine 02/12/22 Manuel Ferris MD [address] [place] [phone] Referring Family Medicine 07/06/24 Admissions Rn Relationship Specialty Start Date End Date Manuel Ferris MD PCP - General Family Medicine 02/27/22 Manuel Ferris MD Referring Family Medicine 02/12/22 Manuel Ferris MD [address] [place] [address] Referring Family Medicine 07/06/24 Team Status: Inactive Member Role Status Dates Gay Enciso NP-C Primary Care Provider Active Start: January 31, 2025 End: January 31, 2025 Adolfo Kang MD Attending Provider Active Sta rt: January 31, 2025 End: January 31, 2025 Admissions Rn Relationship Specialty Start Date End Date Gay Enciso MD [address] [place], [place] [phone] Referring Physician Family Medicine 07/18/24 Admissions Rn Relationship Specialty Start Date End Date Gay Enciso MD [address] [place] [address] Referring Physician Family Medicine 07/18/24 Inactive Administered [...] BE BASED ON THE PRIMARY CLINICAL RECORDS. [employer] provides no warranty or guarantee of the accuracy or completeness of information in this document.
[2025-02-26 18:40] LABS: Hematocrit 41.3 % (36.0-48.0); Hemoglobin 13.9 g/dL (12.0-16.0); Immature Granulocytes Abs Auto 0.19 10^3/uL (0.00-0.03); Immature Granulocytes Pct Auto 1.6 % (0.0-0.5); Lymphocytes Absolute Auto 2.4 10^3/uL (1.2-3.8); Mean Corpuscular HGB Conc 33.7 g/dL (29.9-35.2); Mean Corpuscular Hemoglobin 32.3 pg (26.7-34.0); Mean Corpuscular Volume 95.8 fL (81.0-99.0); Platelet Count 265 10^3/uL (150-450); Red Blood Count 4.31 10^6/uL (4.20-5.40); White Blood Count 11.6 10^3/uL (4.0-11.0)
[2025-02-26] MEDS: 0.9 % SODIUM CHLORIDE 1,000 ML 999 ML IV (18:56)
[2025-02-26 18:57] LABS: Alanine Aminotransferase 60 U/L (14-59); Albumin Globulin Ratio 0.8; Albumin Level 3.3 g/dL (3.4-5.0); Alkaline Phosphatase 82 U/L (46-116); Anion Gap 15.2; Aspartate Amino Transferase 15 U/L (15-37); Blood Urea Nitrogen 9.0 mg/dL (7.0-18.0); Calcium 8.7 mg/dL (8.5-10.1); Carbon Dioxide 24.3 mmol/L (21.0-32.0); Chloride 104 mmol/L (98-107); Estimated GFR (African America >60 (>=60 mL/min/1.73m^2); Estimated GFR (Non-African Ame >60 (>=60 mL/min/1.73m^2); Globulin 4.4 g/dL; Glucose 153 mg/dL (74-106); Potassium 3.5 mmol/L (3.5-5.1); Sodium 140 mmol/L (136-145); Total Protein 7.7 g/dL (6.4-8.2)
[2025-02-26 19:11] LABS: Lactate/Lactic Acid 2.3 mmol/L (0.4-2.0)
[2025-02-26 19:21] LABS: Lipase 41.0 U/L (16.0-77.0); Magnesium 1.7 mg/dL (1.8-2.4)
[2025-02-26 19:36] LABS: Glucose Urine UA NEGATIVE (NEGATIVE)
[2025-02-26 19:44] LABS: Cast Seen? NONE SEEN #/LPF (NONE SEEN); Crystals Seen? None Seen #/HPF (None Seen); Urine Culture Indicated YES-FRMC
--- NOTE | 2025-02-26 19:57 | ED.RECABL1 ---
HPI - Recheck/Abnormal Lab/Rx General Chief Complaint: Recheck/Abnormal Lab/Rx Stated Complaint: abnormal labs Time Seen by Provider: 02/26/25 18:08 Source: patient Mode of arrival: walk-in History of Present Illness HPI narrative: 44-year-old female with a history of lupus presents to the ED after being advised by her family doctor to have critical labs evaluated. She was seen in the ED two days ago for dehydration and a mildly elevated lactate. Today, her PCP noted a lactate of 3.2 with a normal white count. She reports ongoing watery diarrhea for the past couple of weeks, without blood or melena. C. difficile testing is negative; other stool cultures are pending. She denies abdominal pain, chest pain, shortness of breath, urinary changes, lightheadedness, or dizziness. She reports a breast infection for which Infectious Disease is following her and has advised no antibiotics at this time. She also has a pilonidal cyst, which is currently causing localized pain and mild redness but no drainage or swelling; she has had similar episodes in the past and has previously been treated with Keflex and probiotics. She is scheduled for surgical follow-up this week. She receives IVIG infusions for lupus and is currently on increased steroids. She does not feel particularly dehydrated today. Related Data Home Medications ?Medication ?Instructions ?Recorded ?Confirmed azathioprine 50 mg tablet 150 mg PO DAILY 12/18/22 04/15/24 ergocalciferol (vitamin D2) 1,250 1,250 mcg PO .3 times weekly 12/18/22 04/15/24 mcg (50,000 unit) capsule folic acid 1 mg tablet 1 mg PO DAILY 12/18/22 04/15/24 hydroxychloroquine 200 mg tablet 200 mg PO BID 12/18/22 04/15/24 metoprolol tartrate 25 mg tablet 200 mg PO Q12H 12/18/22 04/15/24 prednisone 10 mg tablet 10 mg PO DAILY 12/18/22 04/15/24 pregabalin 75 mg capsule 75 mg PO Q8H 12/18/22 04/15/24 metoprolol tartrate 50 mg tablet 200 mg PO DAILY 07/07/23 04/15/24 amlodipine 5 mg tablet 5 mg PO DAILY 04/15/24 04/15/24 cephalexin 500 mg capsule 500 mg PO Q12H 04/15/24 04/15/24 duloxetine 20 mg capsule,delayed 20 mg PO DAILY 04/15/24 04/15/24 release famotidine 20 mg tablet 20 mg PO BEDTIME 04/15/24 04/15/24 vancomycin 125 mg capsule mg 04/15/24 Previous Rx's ?Medication ?Instructions ?Recorded methocarbamol 750 mg tablet 750 mg PO TID PRN pain #12 tabs 04/15/24 hydrocodone 7.5 mg-acetaminophen 1 tab PO Q6H PRN pain #10 tabs 01/02/25 325 mg tablet methocarbamol 750 mg tablet 750 mg PO BID #14 tabs 01/02/25 cephalexin 500 mg capsule 500 mg PO TID 10 days #30 caps 02/26/25 fidaxomicin 200 mg tablet 200 mg PO BID 10 days #20 tabs 02/26/25 hydrocodone 5 mg-acetaminophen 325 1 tab PO Q6H PRN pain #14 tabs 02/26/25 mg tablet Allergies Allergy/AdvReac Type Severity Reaction Status Date / Time sulfamethoxazole (From Allergy Unknown Verified 02/24/25 23:58 Sulfamethoxazole-Trimethoprim) trimethoprim (From Allergy Unknown Verified 02/24/25 23:58 Sulfamethoxazole-Trimethoprim) Bactrim Allergy Intermediate Unknown Uncoded 02/24/25 23:58 PFSH PFSH Social History Smoking status: Current every day smoker Little interest or pleasure in doing things: not at all Feeling down, depressed, or hopeless: not at all Exam Narrative Exam Narrative: General:?Alert, oriented, no acute distress. HEENT:?No abnormalities noted. Cardiac:?Regular rate and rhythm, no murmurs. Respiratory:?Lungs clear to auscultation bilaterally. Abdomen:?Soft, non-tender, no distension. Skin:?Pilonidal area with slight erythema, no fluctuance, no drainage, no abscess formation. Area is tender to palpation. No acute findings on breast exam (per history). Neuro:?Alert and oriented, no focal deficits. :?No suprapubic tenderness. Constitutional Vital Signs, click to edit/add: Last Vital Signs Temp 99.0 F 02/26/25 17:54 Pulse 85 02/26/25 17:54 Resp 20 02/26/25 17:54 BP 128/89 02/26/25 21:25 Pulse Ox 96 02/26/25 17:54 O2 Del Method Room Air 02/26/25 17:54 Course Vital Signs Vital signs: Vital Signs Temperature 99.0 F 02/26/25 17:54 Pulse Rate 85 02/26/25 17:54 Respiratory Rate 20 02/26/25 17:54 Blood Pressure 152/93 H 02/26/25 17:54 Pulse Oximetry 96 02/26/25 17:54 Oxygen Delivery Method Room Air 02/26/25 17:54 Temperature 99.0 F 02/26/25 17:54 Pulse Rate 85 02/26/25 17:54 Respiratory Rate 20 02/26/25 17:54 Blood Pressure 128/89 02/26/25 21:25 Pulse Oximetry 96 02/26/25 17:54 Oxygen Delivery Method Room Air 02/26/25 17:54 MDM - Recheck/Abnormal Lab/Rx MDM Narrative Medical decision making narrative: Patient with lupus, on IVIG and increased steroids, presents for evaluation of elevated lactate and ongoing diarrhea. Labs today show a lactate of 2.3 (improved from prior), WBC 11.6, normal chemistry, glucose 153, magnesium 1.7, albumin 3.3. Urinalysis shows trace leukocytes, small amount of bacteria, few squamous cells, and 2-5 WBCs. No evidence of acute infection or sepsis. Diarrhea is ongoing but non-bloody and without abdominal pain; infectious workup is in progress with her PCP. No evidence of intra-abdominal pathology on exam. Breast infection and pilonidal cyst are being managed by appropriate specialists. Regarding the pilonidal cyst, the patient reports pain and mild erythema without drainage or fluctuance. She requests pain medication and an antibiotic. She cannot take ciprofloxacin but has previously tolerated cephalexin (Keflex) with probiotics. Given her symptoms and history, empiric antibiotic therapy with Keflex is reasonable. She advised she is usually Rx dificid at the same time due to her history. I did confirm this with past medical records. Prescription provided, along with recommendations for pain management. She is already established with surgical follow-up for this issue. Advised to monitor for signs of abscess formation or worsening symptoms and to follow up with her specialist as planned. Patient was given IV fluids for hydration. She is stable for discharge with instructions to continue close follow-up with her PCP and specialists. Return precautions reviewed. Medical Records Attestation: I reviewed the patient's medical records. Lab Data Attestation: I reviewed the patient's lab results. Labs: Lab Results 02/26/25 02/26/25 Range/Units 18:30 19:30 WBC 11.6 H (4.0-11.0) 10^3/uL RBC 4.31 (4.20-5.40) 10^6/uL Hgb 13.9 (12.0-16.0) g/dL Hct 41.3 (36.0-48.0) % MCV 95.8 (81.0-99.0) fL MCH 32.3 (26.7-34.0) pg MCHC 33.7 (29.9-35.2) g/dL RDW 13.9 (11.0-15.0) % Plt Count 265 (150-450) 10^3/uL MPV 10.1 (9.5-13.5) fL Neut % (Auto) 69.0 (43.0-75.0) % Lymph % (Auto) 20.6 (20.5-60.0) % [place] % (Auto) 7.1 (1.7-12.0) % Eos % (Auto) 1.2 (0.9-7.0) % Baso % (Auto) 0.5 (0.2-2.0) % Neut # (Auto) 8.0 H (1.4-6.5) 10^3/uL Lymph # (Auto) 2.4 (1.2-3.8) 10^3/uL [place] # (Auto) 0.8 (0.3-0.8) 10^3/uL Eos # (Auto) 0.1 (0.0-0.7) 10^3/uL Baso # (Auto) 0.1 (0.0-0.1) 10^3/uL Abs Immat Gran (auto) 0.19 H (0.00-0.03) 10^3/uL Imm/Tot Granulo (auto) 1.6 H (0.0-0.5) % Sodium 140 (136-145) mmol/L Potassium 3.5 (3.5-5.1) mmol/L Chloride 104 (98-107) mmol/L Carbon Dioxide 24.3 (21.0-32.0) mmol/L Anion Gap 15.2 BUN 9.0 (7.0-18.0) mg/dL Creatinine 0.66 (0.55-1.02) mg/dL Est GFR ( Amer) >60 (>=60 mL/min/1.73m^2) Est GFR (Non-Af Amer) >60 (>=60 mL/min/1.73m^2) BUN/Creatinine Ratio 13.6 Glucose 153 H (74-106) mg/dL Lactate 2.3 H* (0.4-2.0) mmol/L Calcium 8.7 (8.5-10.1) mg/dL Magnesium 1.7 L (1.8-2.4) mg/dL Total Bilirubin 0.2 (0.2-1.0) mg/dL AST 15 (15-37) U/L ALT 60 H (14-59) U/L Alkaline Phosphatase 82 (46-116) U/L Total Protein 7.7 (6.4-8.2) g/dL Albumin 3.3 L (3.4-5.0) g/dL Globulin 4.4 g/dL Albumin/Globulin Ratio 0.8 Lipase 41.0 (16.0-77.0) U/L Urine Color Lt. yellow (YELLOW) Urine Clarity Clear (CLEAR) Urine pH 5.5 (5.0-9.0) Ur Specific [place] 1.025 (1.005-1.025) Urine Protein Negative (NEG/TRACE) mg/dL Urine Glucose (UA) Negative (NEGATIVE) mg/dL Urine Ketones Negative (NEGATIVE) mg/dL Urine Occult Blood Negative (NEGATIVE) Urine Nitrite Negative (NEGATIVE) Urine Bilirubin Negative (NEGATIVE) Urine Urobilinogen 0.2 (0.2-1.0) EU/dL Ur Leukocyte Esterase Trace A (NEGATIVE) Urine RBC 2-5 A (0-2) #/HPF Urine WBC 2-5 A (NONE SEEN) #/HPF Ur Squamous Epith Cells Few A (NONE/RARE) #/LPF Urine Crystals None seen (None Seen) #/HPF Urine Bacteria Small A (NONE SEEN) #/HPF Urine Casts None seen (NONE SEEN) #/LPF Urine Mucus None seen (NONE SEEN) Ur Culture Indicated? [place] [place] Discharge Chief Complaint: Recheck/Abnormal Lab/Rx Clinical Impression: Diarrhea, Chronic recurrent pilonidal cyst, Dehydration Patient Disposition: Home, Self-Care Time of Disposition Decision: 20:50 Condition: Good Prescriptions / Home Meds: New fidaxomicin 200 mg tablet 200 mg PO BID 10 Days Qty: 20 0RF cephalexin 500 mg capsule 500 mg PO TID 10 Days Qty: 30 0RF hydrocodone-acetaminophen 5-325 mg tablet 1 tab PO Q6H PRN (Reason: pain) Qty: 14 0RF No Action azathioprine 50 mg tablet 150 mg PO DAILY ergocalciferol (vitamin D2) 1,250 mcg (50,000 unit) capsule 1,250 mcg PO .3 times weekly folic acid 1 mg tablet 1 mg PO DAILY hydroxychloroquine 200 mg tablet 200 mg PO BID metoprolol tartrate 25 mg tablet 200 mg PO Q12H prednisone 10 mg tablet 10 mg PO DAILY pregabalin 75 mg capsule 75 mg PO Q8H metoprolol tartrate 50 mg tablet 200 mg PO DAILY amlodipine 5 mg tablet 5 mg PO DAILY cephalexin 500 mg capsule 500 mg PO Q12H duloxetine 20 mg capsule,delayed release(DR/EC) 20 mg PO DAILY famotidine 20 mg tablet 20 mg PO BEDTIME vancomycin 125 mg capsule methocarbamol 750 mg tablet 750 mg PO TID PRN (Reason: pain) Qty: 12 0RF hydrocodone-acetaminophen 7.5-325 mg tablet 1 tab PO Q6H PRN (Reason: pain) Qty: 10 0RF methocarbamol 750 mg tablet 750 mg PO BID Qty: 14 0RF Print Language: Swazi Instructions: Dehydration (ED) Referrals: SAMSON ENCISO [Primary Care Provider, Family Practice] - 1 week Discharge Date/Time: 02/26/25 21:31
[2025-02-26] MEDS: HYDROCODONE/ACET 5-325 MG TABLET 1 TAB PO (21:22)
[2025-02-26 21:25] VITALS: BP 128/89
== END 2025-02-26 21:31 | disposition home or self-care (01) ==
PROVIDERS: Physician Assistant; Emergency Provider Internal Medicine; PCP Nurse Practitioner Family
DX: E86.0 Dehydration (principal); R19.7 Diarrhea, unspecified; L05.91 Pilonidal cyst without abscess; R79.89 Other specified abnormal findings of blood chemistry; F17.200 Nicotine dependence, unspecified, uncomplicated; Z79.899 Other long term (current) drug therapy; N61.0 Mastitis without abscess
CPT/HCPCS: 36415; 80053; 81001; 83605; 83690; 83735; 85025; 87040; 87086; 87493; 96360; 99284

== ENCOUNTER 2025-02-27 14:12 | Outpatient (OUT) | payer OTHER, SELFPAY ==
--- OUTSIDE RECORDS SUMMARY | 2025-02-14 15:20 | XMS_ITS | Encounter Summary ---
Author Organization [facility] Healthcare Address [address] [place] [address] Care Team Providers Care On Air Announcer Name Role Phone Gay De La Torre MD Unavailable [phone] Reason for Referral * Consultation (Routine) - Authorized Specialty Diagnoses / Procedures Referred By Nahid tran Referred To Contact General Surgery Diagnoses Pilonidal cyst Procedures [place] OFFICE/OUTPATIENT [facility] 60 MINUTES Cynthia English MD [address] [facility] [address] [place] [address] Phone: tel: fax: Terence Blum MD [address] [facility] [address] [place] [address] Phone: tel: fax: Referral ID Status Reason Start Date Expiration Date Visits Requested Visits Authorized [id number] Authorized Specialty Services Required 02/14/2025 08/13/2025 1 1 Reason for Visit * Reason Comments Follow-up Suspicious Skin Lesion Encounter Details Date Type Department Care Team (Late st Contact Info) Description 02/14/2025 3:20 PM EDT [facility] [address] [facility] 350 [place] [phone] Cynthia English MD [address] [facility] [address] [place] [address] Pilonidal cyst (Primary Dx); Hidradenitis suppurativa Social History Tobacco Use Types Packs/Day Years Used Date Smoking Tobacco: Every Day Cigarettes 1 29.8 Started: 05/24/1995 Smokeless Tobacco: Never Comments:Current smoker, carlos mars, 11-20 cigarettes/day Alcohol Use Standard Drinks/Week Comments Never 0 (1 standard drink = 0.6 oz pure alcohol) Caffeine intake : > 4 cups per day Comments No Sex and Gender Information Value Date Recorded Sex Assigned at Not on file Legal Sex Female 7:18 PM EDT Gender Identity Not on file Sexual Orientation Not on file documented as of this encounter Progress Notes * Cynthia English MD - 02/14/2025 3:20 PM EDT Follow up Diagnosis: Hidradenitis Location: generalized Last visit: 11/23/2024 Symptoms: flaring in pelvic area Status: not as bad as it was Current treatment: clindamycin lotion and Hibiclens, injection of 0.2 of K2.5 at last visit Lesions: Location: tailbone Duration: noticed it a couple of weeks ago Quality: painful Associated symptoms: non-healing, tender Treatments: excision was 15 + years ago, Dr. Blum for a cyst Established patient All pertinent medical history, medications, and allergies were reviewed. General Exam: alert, oriented to person, place, and time, normal affect, well appearing Accompanied by daughter A focused exam completed based on patient reported problems, see below: Skin Exam 1. HIDRADENITIS SUPPURATIVA Left Medial Thigh, Right Medial Thigh Flaring on the pubic area. Here today for ILK injection. Given symptoms, recommend treatment with ILK today. ILK today, see MAR for details. Consent: The risks and benefits of intralesional kenalog were discussed prior to the procedure. Specifically, the risk of skin atrophy was reviewed. It was also emphasized that multiple treatments may be necessary. Verbal consent was obtained from the patient/parent. Method: See MAR for details on administration. 0.1 ml of K2.5 was injected intradermally. The patient/parents were instructed to massage the injection site(s) following the procedure. Instructed to call for any questions or problems that occur. Overall well controlled with treatment. Continue hibiclens from the neck down in the shower and clindamycin lotion daily prn for flares. Notify office if flaring despite treatment. Related Medications clindamycin (Cleocin T) 1 % lotion Apply thin later to affected areas on the thighs, once daily, 30 day supply Chlorhexidine Gluconate (Hibiclens) 4 % solution Use every day in shower from the neck down to affected areas. triamcinolone acetonide (Kenalog) injection 2.5 mg triamcinolone acetonide (Kenalog) injection 2.5 mg 2. PILONIDAL CYST Gluteal Crease Referral sent to Dr. Blum who removed it prior for further evaluation Related Procedures Ambulatory referral to General Surgery Next Visit: as scheduled documented in this encounter Plan of Treatment Upcoming Encounters Date Type Department Care Team (Late st Contact Info) Description 02/28/2025 9:30 AM EDT Consult [facility] [address] [facility] [address] [place] [phone] Terence Blum MD 7[address] [facility] [address] [place] [address] 03/19/2025 10:20 AM EDT Office Visit [facility] [address] [place] [phone] Mary Grace Mejias MD 112 [facility] 130 [place] [address] 07/25/2025 11:00 AM EST Office Visit [facility] [address] [place] [address] Cynthia English MD [address] [place] [address] Scheduled Referrals Name Type Priority Associated Diagnoses Order Schedule Ambulatory referral to General Surgery Outpatient Referral Routine Pilonidal cyst Expected: 02/14/2025 (Approximate), Expires: 08/14/2025 documented as of this encounter Visit Diagnoses Diagnosis Pilonidal cyst- Primary Hidradenitis suppurativa Hidradenitis documented in this encounter Administered Medications Inactive Administered Medications - up to 3 most recent administrations Medication Order MAR Action Action Date Dose Rate Site triamcinolone acetonide (Kenalog) injection 2.5 mg 2.5 mg, Intra-lesional, Once, On Wed02/14/25 at 1545, For 1 doseIndications:Hidradenitis suppurativa Given 02/14/2025 3:38 PM EDT 2.5 mg Other documented in this encounter Care Teams On Air Announcer Relationship Specialty Start Date End Date Gay De La Torre MD [address] [place] [address] Referring Physician Family Medicine 07/18/24 documented as of this encounter
--- OUTSIDE RECORDS SUMMARY | 2025-02-21 09:00 | XMS_ITS | Encounter Summary ---
Author Organization [facility] Address [address] [place] [address] Care Team Providers Care Cement Block Maker Name Role Phone Manuel Klein MD Unavailable [phone] Manuel Klein MD Primary Care Provider +-4 Manuel Klein MD Unavailable [phone] Source Comments In the event this information is protected by the Federal Confidentiality of Alcohol and Drug AbusePatient Records regulations: The Federal rules restrict any use of the information to criminally investigate or prosecute any alcohol or drug abuse patient.[facility] Reason for Visit * Reason Comments Hypogammaglobulinemia Treatment visit Encounter Details Date Type Department Care Team (Latest Contact Info) Description 02/21/2025 9:00 AM EDT Visit (SP) Office Hematology/Oncology [address] [place] [address] Fara Lopez APRN.QUALITY CONTROL SPECIALIST [address] [facility] [place] [address] Frequent infections (Primary Dx); Hypogammaglobulinemi a (HCC); Bilateral leg weakness; Discoid lupus erythematosus; Vitamin B12 deficiency; Shortness of breath; Other iron deficiency anemia; Malaise and fatigue Social History Tobacco Use Types Packs/Day Years [...] is lower risk 4 09/24/2022 Data from: https://www.neighborhoodatlas.medicine.[facility]/. Last address used for calculation [address] 09/24/2022 Comments No Sex and Gender Information Value Date Recorded Sex Assigned at Not on file Legal Sex Female 2:51 PM EST Gender Identity Not on file Sexual Orientation Not on file documented as of this encounter Last Filed Vital Signs Vital Sign Reading Time Taken Comments Blood Pressure 128/80 02/21/2025 9:13 AM EDT Pulse 85 02/21/2025 9:13 AM EDT Temperature 36.3 C (97.4 F) 02/21/2025 9:13 AM EDT Respiratory Rate 16 02/21/2025 9:13 AM EDT Oxygen Saturation 98% 02/21/2025 9:13 AM EDT Inhaled Oxygen Concentration - - Weight 130.1 kg (286 lb 13.1 oz) 02/21/2025 9:13 AM EDT Height 170.2 cm (5' 7.01 ) 02/21/2025 9:13 AM ED T Body Mass Index 44.91 02/21/2025 9:13 AM EDT documented in this encounter Functional Status * Are you [...] Assessment Author Yes 12/25/2014 11:14 AM EDT Haroldo wu Chichi * Because of a physical, mental, or emotional condition, do you have difficulty doing errands alone such as visiting a doctor's office or shopping? Answer Date of Assessment Author No 12/25/2014 11:14 AM EDT Zarco M aChichi documented as of this encounter Mental Status * Because of a physical, mental, or emotional condition, do you have serious difficulty concentrating, remembering, or making decisions? Answer Entry Date Author No 12/25/2014 11:14 AM EDT Zarco M aChichi documented in this encounter Progress Notes * Fara Lopez APRN.QUALITY CONTROL SPECIALIST - 02/21/2025 9:00 AM EDT Images from the original note were not included. NAME: Ariadna Paniagua CLINIC NO.: [id number] DATE OF SERVICE: February 21, 2025 (John) Some elements in this clinic note that are critical to medical decision making have been carefully reviewed and included from a prior clinic note dated: .November 29, 2024 (John) Referring Provider: Dr. Manuel Klein Additional Clinicians involved in Ariadna Torres Siva's care: DIAGNOSIS: Multiple symptoms CASE SUMMARY / ASSESSMENT: 44 year old woman with generalized malaise for approximately 2 years. She has lymphadenopathy that has been biopsied in 2020 that came back negative and she reports intermittent fevers. She has had a heart cath for heart palpitations that was negative. She states that shehurts everywhere and her legs get weak she [...] still decreased. No Large granular Lymphocytes noted. SUMMARIZED PLAN: B12 shot today and every 4 weeks. Continue Folic acid. Frequent infections - IVIG for hypogammaglobulinemia- Q 4 weeks RTC 3 months repeat labs same day. IVIG same day. 5. May need iron infusions- will call with lab results. AI ASSISTED A/P: 1. Frequent infections (Z86.19) 2. Hypogammaglobulinemia (HCC) (D80.1) Patient experiences recurrent infections, including multiple boils this past week, consistent with underlying hypogammaglobulinemia. IVIG infusions provide benefit but are insufficient at current 4-week intervals. - Discuss with Dr. Garcia regarding shortening IVIG interval to every 3 weeks. - Continue slow IVIG infusion rate. - Order IgG and IgM levels. - Follow-up after lab results are available. 3. Discoid lupus erythematosus (L93.0) Patient is receiving Benlysta every 2 weeks as ordered by Dr. Park. - Continue Benlysta every 2 weeks as ordered by Dr. Park. 4. Vitamin B12 deficiency (E53.8) Patient is receiving regular B12 injections. - Next B12 injection scheduled for 03/09. 5. Shortness of breath (R06.02) Patient has a history of sleep apnea and uses CPAP consistently. - Continue CPAP therapy. 6. Other iron deficiency anemia (D50.8) Iron studies pending. - Will review iron studies when available. 7. Malaise and fatigue (R53.81) Patient reports increased fatigue and malaise, with recent lab results showing elevated hemoglobin and hematocrit. - Continue Cymbalta as prescribed. - Advised to reduce Tylenol use due to potential hepatotoxicity. - Discussed that weight loss and improved diet may help with fatty liver and overall energy levels. 8. Bilateral leg weakness (R29.898) CASE HISTORY: Reverse Chronological Order 03/23/2024 - IgG, IgM 476, 373, vit D 19.9, cbc : 12.89>13.1/39.3<262, WSR - 27. Currently 2021 ongoing and generalized malaise with elevated IgM. 2020 - lymph node biopsy from neck negative for malignancy. 2019 - had a respiratory illness with dyspnea, possible bronchitis, no cough . HPI: Updated Visit, February 21, 2025: The patient has a history of Honey's syndrome, fatty liver disease, and sleep apnea for which sheuses a CPAP machine nightly. She is currently receiving IVIG infusions every 4 weeks and Benlysta every 2 weeks. She also takes folic acid and Cymbalta. She reports taking Tylenol up to twice daily, though she notes it is not very effective for her pain. She has been advised to avoid ibuprofen, though she reports it is the only medication that helps her pain. She is not currently taking Trulicitydue to concerns about stomach pressure. Today, the patient reports that the benefit of IVIG does not last the full 4 weeks, and she feels significantly worse during the last week to week and a half before her next infusion. During this period, she experiences increased fatigue, shortness of breath, and diarrhea. She reports spending the last week and a half mostly in bed, describing it as feeling like she is coming down with something, but never actually getting sick. She also reports that her oxygen saturation was 93-94% at a recentappointment, though it is 98% today. She has developed 3 boils in the past week, 2 in the pelvic area and 1 on her buttocks. She saw a proposal consultant who treated one with a steroid injection. The second boil ruptured spontaneously, and the third is still present. She has not been prescribed antibiotics. She also has a pilonidal cyst for which she has a surgical consultation scheduled next week. She denies any new lumps or bumps, other than the boils and 2 cysts in her armpit that have been determined to be benign. She denies bleeding, nausea, vomiting, fever, or chills. Updated Visit, November 29, 2024: Patient with a history of lupus, currently managed with monthly IVIG and Benlysta, presents for follow-up. She receives B12 injections every four weeks and is taking oral iron supplements for previously borderline iron levels. Recent labs show a slight increase in WBC count, but improvement from baseline, and a normal CMP. In August, IgG was low at 599 mg/dL. She reports that IVIG provides symptomatic relief for 2-3 weeks, after which she notices a recurrence of boils, requiring a recent corticosteroid injection by her proposal consultant. She experiences intermittent fatigue, shortness of breath, heart palpitations, and tachycardia. She is on metoprolol twice daily and has started a low dose of clonazepam. She was prescribed Cymbalta by her PCP but has notinitiated it due to apprehension. She reports intermittent diarrhea and abdominal bloating, with a sensation of pressure that has been persistent. She describes stiffness and a feeling of heaviness. She has a chronic breast infection, previously cultured as Pseudomonas aeruginosa, with green discharge. Recent mammogram and ultrasound were benign, identifying a cyst under her armpit. She reports a new symptom of a lower rib popping out of place, causing significant pain when moving, particularly at night. She is under pain management and has discussed this issue with her provider. She is borderline diabetic and was previously on Trulicity 0.75 mg, with a prescription for 1.5 mg, but has not started the higher dose due to concerns about worsening abdominal pressure. Updated Visit, September 06, 2024: Ariadna returns [...] anxiety. Updated Visit, April 20, 2023: Ariadna Paniagua returns for scheduled follow-up and monthly B12. [...] lower lip done 2 days ago at [facility] - awaiting results. B12 helps especially [...] there. Updated Visit, August 27, 2022: Ariadna Paniagua returns for follow-up and B12 injection. She has missed a few B12 injections. Shefollows with multiple doctors including and bottom pounder cement shoes, plastic duplicator, proposal consultant and PCP. She has been told they [...] decreasing. Initial Visit, March 04, 2022: Ariadna Paniagua presents today Hematology and Oncology evaluation. She [...] PERFORMANCE STATUS: 0 PHYSICAL EXAMINATION: Vitals: BP 128/80 Pulse 85 Temp (Src) 97.4 (Temporal) Resp 16 Ht 5' 7.008 (1.70m) Wt 286lb 13.1 oz (130.1kg) SpO2 98% LMP 05/30/2024 BMI 44.91 kg/(m^2). Body surface area is 2.48 meters squared. [...] thinks she just experienced side effects. MEDICATIONS: hydrOXYchloroQUINE (PLAQUENIL) 200 mg tablet^TAKE 1 TAB TWICE A DAY WITH FOOD *SUNSCREEN WHILE OUTDOORS/OPHTHAMOLOGY EVERY 6-12 MONTHS WHILE ON*^Disp: 60 tablet^Rfl: 11 predniSONE (DELTASONE) 10 mg tablet^Take 40mg daily x 3, decrease by 5mg every 3days until taking 10mg daily with food thereafter (no oral nsaids)^Disp: 120 tablet^Rfl: [address] (PROTONIX) 40 mg tablet^TAKE 1 TABLET BY MOUTH 1/2 TO 1 HOUR BEFORE MORNING MEAL^Disp: ^Rfl: tacrolimus (PROTOPIC) 0.1 % ointment^APPLY TO AFFECTED AREA ON FOREHEAD TWICE A DAY NEEDED FOR FLARES, HOLD IF CLEAR^Disp: ^Rfl: thiamine (VITAMIN B1) 100 mg tablet^Take 100 mg by mouth every morning.^Disp: ^Rfl: nystatin (MYCOSTATIN) 100,000 unit/mL suspension^TAKE 4 ML BY MOUTH / THROAT 4 TIMES A DAY FOR 7 DAYS^Disp: ^Rfl: LO LOESTRIN FE 1 mg-10 mcg (24)/10 mcg (2)^Take 1 tablet by mouth once daily.^Disp: ^Rfl: fluocinonide (LIDEX) 0.05 % external solution^^Disp: ^Rfl: DULoxetine (CYMBALTA) 20 mg capsule^Take 1 capsule by mouth once daily.^Disp: ^Rfl: clotrimazole (MYCELEX) 10 mg bk^USE 1 BK WHILE ON IMMUNOSUPPRESSIVE MEDICINE BY MOUTH/THROAT 3 TIMES A DAY^Disp: ^Rfl: Clobetasol Propionate 0.05 % sham^^Disp: ^Rfl: KLONOPIN 0.5 mg tablet^1 tablet Orally Once a day prn for 30 days F41.9^Disp: ^Rfl: Clindamycin Phosphate (CLEOCIN T) 1 % lotion^APPLY A THIN LAYER TO AFFECTED AREAS ON THE THIGHS ONCE A DAY^Disp: ^Rfl: HIBICLENS 4 % external liquid^^Disp: ^Rfl: tretinoin (RETIN-A) 0.025 % topical cream^Apply to face, once daily at evening/night time, 30 day supply^Disp: ^Rfl: ergocalciferol 50,000 unit capsule (VITAMIN D2, DRISDOL)^Take 1cap by mouth 3times a week x 10weeks, then once a week with food.^Disp: 34 capsule^Rfl: 1 belimumab (BENLYSTA) 200 mg/mL auto-injector^Inject 200mg (1 pen) subcutaneously once weekly^Disp: 12 mL^Rfl: 3 TRULICITY 0.75 mg/0.5 mL pen injector^Inject 0.75 mg subcutaneously one time a week. Per PCP^Disp: ^Rfl: cqcmtiwehgPMWJX-eaeuhg-ybzdyydtk (BMX 1:1:1) 1:1:1 liqd^Take 5 mL by mouth every 6 hours as needed.^Disp: 500 mL^Rfl: 1 folic acid 1 mg tablet^Take 1 tablet by mouth once daily.^Disp: 90 tablet^Rfl: 3 azaTHIOprine (IMURAN) 50 mg tablet^TAKE 3 TABLETS BY MOUTH DAILY WITH FOOD. HOLD IF ON ANTIBIOTICS OR ILL.^Disp: 270 tablet^Rfl: 1 pregabalin (LYRICA) 75 mg capsule^take 1 capsule by mouth three times a day^Disp: 270 capsule^Rfl: 3 metoprolol tartrate, short acting, (LOPRESSOR) 50 mg tablet^Take 100 mg by mouth two times a day.^Disp: ^Rfl: CPAP/BIPAP/OTHER^Type .CPAPSettings into a note to see current settings/supplies/DME information.^Disp: 1 Each^Rfl: 0 acetaminophen (TYLENOL) 500 mg tablet^Take 1,000 mg by mouth.^Disp: ^Rfl: aspirin 81 mg chewable tablet^Take 81 mg by mouth.^Disp: ^Rfl: ibuprofen (MOTRIN) 200 mg tablet^Take 600 mg by mouth. ^Disp: ^Rfl: LABORATORY VALUES: WBC (k/uL) Date Value 02/21/2025 13.16 (H) RBC (m/uL) Date Value 02/21/2025 4.77 Hemoglobin (g/dL) Date Value 02/21/2025 15.1 Hematocrit (%) Date Value 02/21/2025 46.0 MCV (fL) Date Value 02/21/2025 96.4 MCH (pg) Date Value 02/21/2025 31.7 MCHC (g/dL) Date Value 02/21/2025 32.8 RDW-CV (%) Date Value 02/21/2025 14.3 Platelet Count (k/uL) Date Value 02/21/2025 305 MPV (fL) Date Value 02/21/2025 9.9 Glucose (mg/dL) Date Value 02/21/2025 248 (H) BUN (mg/dL) Date Value 02/21/2025 16 Creatinine (mg/dL) Date Value 02/21/2025 0.49 (L) Sodium (mmol/L) Date Value 02/21/2025 138 Potassium (mmol/L) Date Value 02/21/2025 4.1 Chloride (mmol/L) Date Value 02/21/2025 101 CO2 (mmol/L) Date Value 02/21/2025 20 (L) Protein, Total (g/dL) Date Value 02/21/2025 7.6 Albumin (g/dL) Date Value 02/21/2025 4.3 Calcium, Total (mg/dL) Date Value 02/21/2025 10.2 Alkaline Phosphatase (U/L) Date Value 02/21/2025 83 Bilirubin, Total (mg/dL) Date Value 02/21/2025 0.3 AST (U/L) Date Value 02/21/2025 20 ALT (U/L) Date Value 02/21/2025 49 (H) Cholesterol, Total (mg/dL) Date Value 05/21/2015 217 (H) Triglyceride (mg/dL) Date Value 05/21/2015 242 (H) DIAGNOSIS: (Z86.19) Frequent infections (primary encounter diagnosis) Plan: BEACON PROVIDER APPOINTMENT REQUEST, BEACON INFUSION APPOINTMENT REQUEST (D80.1) Hypogammaglobulinemia (HCC) Plan: BEACON PROVIDER APPOINTMENT REQUEST, BEACON INFUSION APPOINTMENT REQUEST (R29.898) Bilateral leg weakness Plan: BEACON PROVIDER APPOINTMENT REQUEST, BEACON INFUSION APPOINTMENT REQUEST (L93.0) Discoid lupus erythematosus Plan: BEACON PROVIDER APPOINTMENT REQUEST, BEACON INFUSION APPOINTMENT REQUEST (E53.8) Vitamin B12 deficiency (R06.02) Shortness of breath (D50.8) Other iron deficiency anemia (R53.81, R53.83) Malaise and fatigue PAST MEDICAL HISTORY Diagnosis Date Chronic pain [...] [Other]) Mother I spent a total of 35 minutes on the date of the service which included preparing to see the patient, [id number] patient care, completing clinical documentation, obtaining and/or reviewing separately obtained history, performing a medically appropriate examination, counseling and educating the pat ient/family/caregiver, ordering medications, tests, or procedures, communicating with other HCPs (not separately reported), and independently interpreting results (not separately reported) . Fara Lopez APRN, TELEGRAPH OFFICE MANAGER-C, OCN Hematology and Oncology Services Provided at: [place], [place] CC: Manuel Klein MD [address] [facility] [address] documented in this encounter Plan of Treatment Upcoming Encounters Date Type Department Care Team (Latest Contact Info) Description 03/08/2025 2:00 PM EDT Infusion Center Hematology/Oncology [address] [place] [address] BENLYSTA - 03/21/2025 9:00 AM EDT Office Visit [facility] [address] [place] [address] 4 week follow up IVIG - pt to see MASON for this appt per Fara 03/21/2025 9:20 AM EDT Visit (SP) Office Hematology/Oncology [address] [place] [address] Jose Cho MD [address] [place] [address] 4 week follow up IVIG - pt to see MASON for this appt per Fara 03/21/2025 9:40 AM EDT Infusion Center Hematology/Oncology [address] [place] [address] Gabbi, Chair [address] [place] [address] 4 week follow up IVIG - pt to see MASON for this appt per Fara 04/05/2025 2:00 PM EST Infusion Center Hematology/Oncology [address] [place] [address] BENLYSTA - 05/03/2025 2:00 PM [facility] Infusion Center Hematology/Oncology [facility] [place] [address] BENLYSTA - documented as of this encounter Visit Diagnoses Diagnosis Frequent infections- Primary Hypogammaglobulinemia (HCC) Hypogammaglobulinaemia, unspecified Bilateral leg weakness Other musculoskeletal symptoms referable to limbs Discoid lupus erythematosus Lupus erythematosus Vitamin B12 deficiency Other B-complex deficiencies Shortness of breath Other iron deficiency anemia Malaise and fatigue Other malaise and fatigue documented in this encounter Care Teams Cement Block Maker Relationship Specialty Start Date End Date Manuel Klein MD PCP - General Family Medicine 02/27/22 Manuel Klein MD Referring Family Medicine 02/12/22 Manuel Klein MD [address] [place] [address] Referring Family Medicine 07/06/24 documented as of this encounter
--- OUTSIDE RECORDS SUMMARY | 2025-02-21 09:30 | XMS_ITS | Encounter Summary ---
Author Organization [facility] Address [address] [place] [address] Care Team Providers Care Insurance Legal Assistant Name Role Phone Manuel Klein MD Unavailable [phone] Manuel Klein MD Primary Care Provider +-4 Manuel Klein MD Unavailable [phone] Source Comments In the event this information is protected by the Federal Confidentiality of Alcohol and Drug AbusePatient Records regulations: The Federal rules restrict any use of the information to criminally investigate or prosecute any alcohol or drug abuse patient.[facility] Reason for Visit * [place] Prior Authorization (Routine) - Authorized Specialty Diagnoses / Procedures Referred By Contac t Referred To Contact Diagnoses Frequent infections Hypogammaglobulinemia (HCC) Bilateral leg weakness Discoid lupus erythematosus Procedures GAMMAGARD LIQUID INJECTION IMMUNE GLOBULIN INJECTION Jose Cho MD [address] [place] [address] [place] [address] Phone: tel: fax: Hematology/Oncology [address] [place] [address] [place] [address] Phone: tel: fax: Referral ID Status Reason Start Date Expiration Date Visits Requested Visits Authorized [id number] Authorized Patient Cleared - Admin/Chairm an/Director advise to proceed or did not respond 10/30/2024 10/30/2025 19 19 Encounter Details Date Type Department Care Team (Latest Contact Info) Description 02/21/2025 9:30 AM EDT Infusion Center Hematology/Oncology [address] [place] [address] [place] [address] Frequent infections (Primary Dx); Hypogammaglobulinemia (HCC); Bilateral [...] risk 4 09/24/2022 Data from: https://www.neighborhoodatlas.medicine.[facility].edu/. Last address used for calculation [address] [place] [address] 09/24/2022 Comments No Sex and Gender Information [...] 02/21/2025 11:59 AM EDT Gamunex-C: Lot # [id number] EXP 05/02/27 = 20 G LOT# [id number] EXP 09/04/27 = 10 G LOT# [id number] EXP 06/19/27 = 5 G documented in this encounter Plan of Treatment Upcoming Encounters Date Type Department Care Team (Latest Contact Info) Description 03/08/2025 2:00 PM EDT [facility] Center Hematology/Oncology [address] [facility] [address] BENLYSTA - 03/21/2025 9:00 AM EDT Office Visit [facility] Laboratory [address] [facility] [address] 4 week follow up IVIG - pt to see MASON for this appt per Fara 03/21/2025 9:20 AM EDT Visit (SP) Office Hematology/Oncology [address] [place] [address] Jose Cho MD [address] [facility] [place] [address] 4 week follow up IVIG - pt to see MASON for this appt per Fara 03/21/2025 9:40 AM EDT Infusion Center Hematology/Oncology [address] [facility] [place] [address] Gabbi, Chair [address] [facility] [place] [address] 4 week follow up IVIG - pt to see MASON for this appt per Fara 04/05/2025 2:00 PM [facility] Infusion Center Hematology/Oncology [address] [facility] [place] [address] BENLYSTA - 05/03/2025 2:00 PM [facility] Infusion Center Hematology/Oncology [address] [facility] [place] [address] BENLYSTA - documented as of this encounter [...] mL/hr documented in this encounter Care Teams Insurance Legal Assistant Relationship Specialty Start Date End Date Manuel Klein MD PCP - General Family Medicine 02/27/22 Manuel Klein MD Referring Family Medicine 02/12/22 Manuel Klein MD [address] [place] [address] Referring Family Medicine 07/06/24 documented as of this encounter
--- OUTSIDE RECORDS SUMMARY | 2025-02-27 14:14 | XMS_ITS | Encounter Summary ---
Author Organization [facility] Address [address] [facility] [place] [address] Care Team Providers Care Social Welfare Research Worker Name Role Phone Gay De La Torre MD Unavailable [phone] Encounter Details Date Type Department Care [...] AM EDT Consult [facility] [address] [address] Terence Blum MD [address] [facility] [address] [place] [address] 03/19/2025 10:20 AM EDT Office Visit [facility] [address] [facility] [address] [place] [address] Mary Grace Mejias MD [address] [facility] [address] [place] [address] 07/25/2025 11:00 AM EST Office Visit [facility] [address] [place] [phone] Cynthia English MD [address] [place] [address] documented as of this encounter Visit Diagnoses Not on filedocumented in this encounter Care Teams Social Welfare Research Worker Relationship Specialty Start Date End Date Gay De La Torre MD [address] [place] [address] Referring Physician Family Medicine 07/18/24 documented as of this encounter
--- OUTSIDE RECORDS SUMMARY | 2025-02-27 14:14 | XMS_ITS | Encounter Summary ---
Author Organization [facility] Address [address] [place] [address] Phone Care Team Providers Care Car Ferry Captain Name Role Phone MitaliMichelle REHABILITATION TEAM LEAD-PHONE MANAGER Unavailable [phone] Kenneth Patel MD Unavailable [phone] Gay De La Torre REHABILITATION TEAM LEAD-PHONE MANAGER Primary Care Provider Encounter Details Date Type Department Care Team (Late st Contact Info) Description 12/11/2023 Scanned Document [facility] [address] [place] [id number] Scanning, Generic Provider Social History Tobacco Use [...] Description 07/26/2025 11:00 AM EST Office Visit [facility] [address] [facility] [address] [place] [address] Lois Arguelles MD [address] [place] [address] documented as of this [...] documented as of this encounter Care Teams Car Ferry Captain Relationship Specialty Start Date End Date Gay De La Torre, REHABILITATION TEAM LEAD-PHONE MANAGER [address] [place] [address] PCP - General 07/13/23 Michelle Jasmine APRN-PHONE MANAGER Nurse Practitioner Cardiology 06/08/23 Kenneth Patel MD Consulting Physician Cardiology 06/23/23 documented as of this encounter
--- OUTSIDE RECORDS SUMMARY | 2025-02-27 14:14 | XMS_ITS | Encounter Summary ---
Author Organization Address [address] [place] [address] Care Team Providers Care Metal Mold Dresser Name Role Phone Manuel Klein MD Unavailable [phone] Manuel Klein MD Primary Care Provider +-4 Manuel Klein MD Unavailable [phone] Source Comments In the event this information is protected by the Federal Confidentiality of Alcohol and Drug AbusePatient Records regulations: The Federal rules restrict any use of the information to criminally investigate or prosecute any alcohol or drug abuse patient. Encounter Details Date Type Department Care Team (Late st Contact Info) Description 05/05/2022 Patient Msg Home Respiratory Therapy [address] [place] [address] [place] [id number] Jami Rivera, PSS PAP Referral Delay Social [...] N ot on file 08/09/2020 Data from: https://www.neighborhoodatlas.medicine.[facility]/. Last address used for calculation Not [...] EDT [facility] Hematology/Oncology [address] [facility] [place] [address] BENLYSTA - 03/21/2025 9:00 AM EDT Office Visit [facility] [address] [facility] [place] [address] 4 week follow up IVIG - pt to see MASON for this appt per Fara 03/21/2025 9:20 AM EDT Visit (SP) Office Hematology/Oncology [address] [facility] [place] [address] Jose Cho MD [address] [facility] [place] [address] 4 week follow up IVIG - pt to see MASON for this appt per Fara 03/21/2025 9:40 AM EDT Infusion Center Hematology/Oncology [address] [facility] [place] [address] Gabbi, Chair 4 [address] [facility] [place] [address] 4 week follow up IVIG - pt to see MASON for this appt per Fara 04/05/2025 2:00 PM EST Infusion Center Hematology/Oncology [address] [place] [address] BENLYSTA - 05/03/2025 2:[address] [facility] Infusion Center Hematology/Oncology [address] [facility] [place] [address] BENLYSTA - documented as of this encounter Visit Diagnoses Not on filedocumented in this encounter Care Teams Metal Mold Dresser Relationship Specialty Start Date End Date Manuel Klein MD PCP - General Family Medicine 02/27/22 Manuel Klein MD Referring Family Medicine 02/12/22 Manuel Klein MD [address] [facility] [place] [address] Referring Family Medicine 07/06/24 documented as of this encounter
--- OUTSIDE RECORDS SUMMARY | 2025-02-27 14:14 | XMS_ITS | Encounter Summary ---
Author Organization [facility] Address [address] [place] [address] Care Team Providers Care Director Of First Impressions Name Role Phone Britt Gay(Historical) RN PEDIATRIC ICU.ENVIRONMENTAL PROTECTION GEOLOGIST Primary Care Provider Unavailable Manuel Klein MD Unavailable [phone] Manuel Klein MD Primary Care Provider +-4 Manuel Klein MD Unavailable [phone] Source Comments In the event this information is protected by the Federal Confidentiality of Alcohol and Drug AbusePatient Records regulations: The Federal rules restrict any use of the information to criminally investigate or prosecute any alcohol or drug abuse patient.[facility] Encounter Details Date Type Department Care Team (Late st Contact Info) Description 05/04/2021 Get Medical Advice Rheumatology [address] [facility] [place], [place] [phone] Sandra Park MD [address] [place], [place] [phone] Lupus diagnosis from dermatology Social History Tobacco [...] N ot on file 08/09/2020 Data from: https://www.neighborhoodatlas.medicine.[facility]/. Last address used for calculation Not [...] 2:00 PM EDT Infusion Center Hematology/Oncology [address] [facility] [place] [address] BENLYSTA - 03/21/2025 9:00 AM EDT Office Visit [facility] [address] [place] [address] 4 week follow up IVIG - pt to see MASON for this appt per Fara 03/21/2025 9:20 AM EDT Visit (SP) Office Hematology/Oncology [address] [facility] [place] [address] Jose Cho MD [address] [facility] [place] [address] 4 week follow up IVIG - pt to see MASON for this appt per Fara 03/21/2025 9:40 AM EDT Infusion Center Hematology/Oncology [address] [facility] [place] [address] Gabbi, Chair 4 [address] [facility] [place] [address] 4 week follow up IVIG - pt to see MASON for this appt per Fara 04/05/2025 2:00 PM EST Infusion Center Hematology/Oncology [address] [facility] [place] [address] BENLYSTA - 05/03/2025 2:00 PM EST Infusion Center Hematology/Oncology [address] [facility] [place] [address] BENLYSTA - documented as of this encounter Visit Diagnoses Diagnosis CHRISTIAN positive- Primary Other and unspecified nonspecific immunological findings Other systemic lupus erythematosus with other organ involvement (HCC) documented in this encounter Care Teams Director Of First Impressions Relationship Specialty Start Date End Date Gay De La Torre(Historical), RN PEDIATRIC ICU.ENVIRONMENTAL PROTECTION GEOLOGIST PCP - General Family Medicine 10/24/21 02/26/22 Manuel Klein MD PCP - General Family Medicine 02/27/22 Manuel Klein MD Referring Family Medicine 02/12/22 Manuel Klein MD [address] [place] [address] Referring Family Medicine 07/06/24 documented as of this encounter
--- OUTSIDE RECORDS SUMMARY | 2025-02-27 14:14 | XMS_ITS | Encounter Summary ---
Author Organization [facility] Address [address] [place] [address] Care Team Providers Care Pouch Making Machine Operator Name Role Phone Gay De La Torre MD Unavailable [phone] Encounter Details Date Type Department Care Team (Late Contact Info) Description 02/14/2025 Bamboo flowsheet [facility] [address] [facility] 350 [place] [phone] Cynthia English MD [address] [facility] 350 [place] [address] Social History Tobacco Use Types Packs/Day Years [...] AM EDT Consult [facility] 703 [facility] 150 [place] [phone] Terence Blum MD 703 [facility] 150 [place] [address] 03/19/2025 10:20 AM EDT Office Visit [facility] [address] [place] [address] Mary Grace Mejias MD 112 [facility] 130 [place] [address] 07/25/2025 11:00 AM EST Office Visit [facility] [address] [place] [address] Cynthia English MD [address] [place] [address] documented as of this encounter Visit Diagnoses Not on filedocumented in this encounter Care Teams Pouch Making Machine Operator Relationship Specialty Start Date End Date Gay De La Torre MD [address] [place] [address] Referring Physician Family Medicine 07/18/24 documented as of this encounter
--- OUTSIDE RECORDS SUMMARY | 2025-02-27 14:14 | XMS_ITS | Encounter Summary ---
Author Organization [facility] Address [address] [place] [address] Care Team Providers Care Wildlife Conservationist Name Role Phone Manuel Klein MD Unavailable [phone] Manuel Klein MD Primary Care Provider +-4 Manuel Klein MD Unavailable [phone] Source Comments In the event this information is protected by the Federal Confidentiality of Alcohol and Drug AbusePatient Records regulations: The Federal rules restrict any use of the information to criminally investigate or prosecute any alcohol or drug abuse patient.[facility] Encounter Details Date Type Department Care Team (Late st Contact Info) Description 03/18/2022 Get Medical Advice Hematology/Oncology [facility] [place] [place] [address] Jose Cho MD [facility] [address] [place] [address] Blood work Social History Tobacco Use [...] N ot on file 08/09/2020 Data from: https://www.neighborhoodatlas.[facility]/. Last address used for calculation Not on [...] 2:00 PM EDT Infusion Center Hematology/Oncology [address] [facility] [place] [address] BENLYSTA - 03/21/2025 9:00 AM EDT Office Visit [facility] [address] [place] [address] 4 week follow up IVIG - pt to see MASON for this appt per Fara 03/21/2025 9:20 AM EDT Visit (SP) Office Hematology/Oncology [address] [facility] [place] [address] Jose Cho MD [address] [facility] [place] [address] 4 week follow up IVIG - pt to see MASON for this appt per Fara 03/21/2025 9:40 AM EDT Infusion Center Hematology/Oncology [address] [facility] [place] [address] Gabbi, Chair 4 [address] [facility] [place] [address] 4 week follow up IVIG - pt to see MASON for this appt per Fara 04/05/2025 2:00 PM EST Infusion Center Hematology/Oncology [address] [place] [address] BENLYSTA - 05/03/2025 2:00 PM [facility] Infusion Center Hematology/Oncology [address] [facility] [address] BENLYSTA - documented as of this encounter Visit Diagnoses Not on filedocumented in this encounter Care Teams Wildlife Conservationist Relationship Specialty Start Date End Date Manuel Klein MD PCP - General Family Medicine 02/27/22 Manuel Klein MD Referring Family Medicine 02/12/22 Manuel Klein MD [address] [place] [address] Referring Family Medicine 07/06/24 documented as of this encounter
--- OUTSIDE RECORDS SUMMARY | 2025-02-27 14:14 | XMS_ITS | Encounter Summary ---
Author Organization [facility] Address [address] [place] [address] Care Team Providers Care Nanotechnician Name Role Phone House, Charles Culver MD Primary Care Provider [phone] Gay De La Torre MD Unavailable [phone] Encounter Details Date Type Department Care Team (Late Contact Info) Description 09/29/2023 Clinisync Result Encounter [facility] External Department Unsolicited Zita Rogers, TAX INTERN [address] [facility] [address] [address] Social History Tobacco Use Types Packs/Day Years [...] AM EDT Consult [facility] [address] [facility] 150 [place] [phone] Terence Blum MD 703 [facility] 150 [place] [address] 03/19/2025 10:20 AM EDT Office Visit [facility] [address] [facility] 900 [place] [phone] Mary Grace Mejias MD 112 [facility] 130 [place] [address] 07/25/2025 11:00 AM EST Office Visit [facility] [address] [place] [address] Cynthia English MD [address] [place] [address] documented as of this encounter Procedures Procedure Name Priority Date/Time Associated Diagnosis Comments XR THORACIC SPINE 3V 09/29/2023 7:22 AM EDT documented in this encounter Results * XR THORACIC SPINE 3V (09/29/2023 7:22 AM EDT) Anatomical Region Laterality Modality Other 09/29/2023 7:22 AM EDT Narrative 09/29/2023 7:25 AM EDT [address] [address] XRay Report Signed Patient: JONES PANIAGUA MR#: [id number] : 1980 Acct:[id number] Age/Sex: 42 / F ADM Date: 09/28/23 Loc: RAD Attending Dr: ZITA ROGERS Ordering Physician: ZITA ROGERS Date of Service: 09/28/23 Procedure(s): XR thoracic spine 3V Accession Number(s): [id number] cc: GAY DE LA TORRE ; ZITA ROGERS The [address] [address] Patient Name: JONES PANIAGUA MRN: [id number] date: 1980 Sex: F Assigned Patient Location: RAD Current Patient Location: Accession/Order Number: [id number] Exam Date: 09/28/2023 14:43 Report Date: 09/29/2023 [...] M.D. Signed By: 09/29/2325 DD/ 1 TD/TT: Director Digital Advertising: Procedure Note Radiology, Radiologist, MD - 09/29/2023 [place] [address] XRay Report Signed Patient: JONES PANIAGUA BMR#: [id number] : 1980Acct:[id number] Age/Sex: 42 / FADM Date: 09/28/23 Loc: [facility] Attending Dr: ZITA ROGERS Ordering Physician: ZITA ROGERS Date of Service: 09/28/23 Procedure(s): XR thoracic spine 3V Accession Number(s): [id number] cc: GAY DE LA TORRE ; ZITA ROGERS The [place] [address] Patient Name: JONES PANIAGUA MRN: [id number] date: 1980 Sex: F Assigned Patient Location: [facility] Current Patient Location: Accession/Order Number: [id number] Exam Date: 09/28/2023 14:43 Report Date: 09/29/2023 [...] Shaikh M.D. Signed By:09/29/23724 DD/ 1 TD/TT: Director Digital Advertising: us Zita Rogers TAX INTERN [facility] Final Result documented in this encounter Visit Diagnoses Not on filedocumented in this encounter Care Teams Nanotechnician Relationship Specialty Start Date End Date Charles Nicole MD PCP - General Family Medicine 02/09/24 07/17/24 Gay De La Torre MD [address] [place], [place] [phone] Referring Physician Family Medicine 07/18/24 documented as of this encounter
--- OUTSIDE RECORDS SUMMARY | 2025-02-27 14:14 | XMS_ITS | Encounter Summary ---
Author Organization [facility] Address [address] [facility] [place] [address] Care Team Providers Care Emergency Management Consultant Name Role Phone Gay De La Torre MD Unavailable [phone] Encounter Details Date Type Department Care [...] AM EDT Consult [facility] [address] [address] Terence Blum MD 703 [facility] 150 [place] [address] 03/19/2025 10:20 AM EDT Office Visit [facility] [address] [facility] 900 [place] [address] Mary Grace Mejias MD 112 [facility] 130 [place] [address] 07/25/2025 11:00 AM EST Office Visit [facility] [address] [place] [address] Cynthia English MD [address] [place] [address] documented as of this encounter Visit Diagnoses Not on filedocumented in this encounter Care Teams Emergency Management Consultant Relationship Specialty Start Date End Date Gay De La Torre MD [address] [place] [address] Referring Physician Family Medicine 07/18/24 documented as of this encounter
--- OUTSIDE RECORDS SUMMARY | 2025-02-27 14:14 | XMS_ITS | Encounter Summary ---
Author Organization [facility] Address [address] [facility] [place] [place] [address] Care Team Providers Care Draw Hand Name Role Phone Gay De La Torre MD Unavailable [phone] Encounter Details Date Type Department Care [...] AM EDT Consult [facility] [address] [address] Terence Blum MD 703 [facility] 150 [place] [address] 03/19/2025 10:20 AM EDT Office Visit [facility] [address] [facility] 900 [place] [address] Mary Grace Mejias MD 112 [facility] 130 [place] [address] 07/25/2025 11:00 AM EST Office Visit [facility] [address] [place] [address] Cynthia English MD [address] [place] [address] documented as of this encounter Visit Diagnoses Not on filedocumented in this encounter Care Teams Draw Hand Relationship Specialty Start Date End Date Gay De La Torre MD [address] [place] [address] Referring Physician Family Medicine 07/18/24 documented as of this encounter
--- OUTSIDE RECORDS SUMMARY | 2025-02-27 14:14 | XMS_ITS | Encounter Summary ---
Author Organization [facility] Address [address] [place] [address] Care Team Providers Care General Superintendent Name Role Phone Gay De La Torre(Historical) SIZE PAINTER.FAST FOODS WORKER Primary Care Provider Unavailable Manuel Klein MD Unavailable [phone] Manuel Klein MD Primary Care Provider +- Manuel Klein MD Unavailable Source Comments In the event this information is protected by the Federal Confidentiality of Alcohol and Drug AbusePatient Records regulations: The Federal rules restrict any use of the information to criminally investigate or prosecute any alcohol or drug abuse patient.[facility] Encounter Details Date Type Department Care Team (Late st Contact Info) Description 08/13/2021 Patient Msg Rheumatology [address] [place] [address] Provider, Ccf Please Review Changes [...] file 08/09/2020 Data from: https://www.neighborhoodatlas.medicine.[facility]/. Last address used for calculation [...] EDT [facility] Hematology/Oncology [address] [facility] [place] [address] BENLYSTA - 03/21/2025 9:00 AM EDT Office Visit [facility] [address] [place] [address] 4 week follow up IVIG - pt to see MASON for this appt per [facility] 03/21/2025 9:20 AM EDT Visit (SP) Office Hematology/Oncology [address] [place] [address] Jose Cho MD [address] [place] [address] 4 week follow up IVIG - pt to see MASON for this appt per [facility] 03/21/2025 9:40 AM EDT Infusion Center Hematology/Oncology [address] [place] [address] Gabbi, Chair [address] [place] [address] 4 week follow up IVIG - pt to see MASON for this appt per [facility] 04/05/2025 2:00 PM EST Infusion Center Hematology/Oncology [address] [place] [address] BENLYSTA - 05/03/2025 2:00 PM [facility] Infusion Center Hematology/Oncology [address] [place] [address] BENLYSTA - documented as of this encounter Visit Diagnoses Not on filedocumented in this encounter Care Teams General Superintendent Relationship Specialty Start Date End Date Gay De La Torre(Historical), SIZE PAINTER.FAST FOODS WORKER PCP - General Family Medicine 10/24/21 02/26/22 Manuel Klein MD PCP - General Family Medicine 02/27/22 Manuel Klein MD Referring Family Medicine 02/12/22 Manuel Klein MD [facility] [place] [address] Referring Family Medicine 07/06/24 documented as of this encounter
--- OUTSIDE RECORDS SUMMARY | 2025-02-27 14:14 | XMS_ITS | Encounter Summary ---
Author Organization [facility] Address [address] [facility] [place] [address] Care Team Providers Care Buckshot Swage Operator Name Role Phone Gay De La Torre MD Unavailable [phone] Reason for Visit * Reason Comments Med Refill Encounter Details Date Type Department Care Team (Late Contact Info) Description 12/07/2024 Refill [facility] [address] [facility] 120 [place] [phone] Андрей Hearn DO [address] [facility] [address] [place] [address] Eustachian tube dysfunction, bilateral; Non-recurrent acute serous [...] Surgical Associates 703 [facility] 150 [place] [phone] Terence Blum MD 703 [facility] 150 [place] [address] 03/19/2025 10:20 AM EDT Office Visit [facility] [address] [place] [address] Mary Grace Mejias MD 112 [facility] 130 [place] [address] 07/25/2025 11:00 AM EST Office Visit [facility] [address] [place] [address] Cynthia English MD [address] [place] [address] documented as of this encounter Visit Diagnoses Diagnosis Eustachian tube dysfunction, bilateral Non-recurrent acute serous otitis media of both ears documented in this encounter Care Teams Buckshot Swage Operator Relationship Specialty Start Date End Date Gay De La Torre MD [address] [place] [address] Referring Physician Family Medicine 07/18/24 documented as of this encounter
--- OUTSIDE RECORDS SUMMARY | 2025-02-27 14:14 | XMS_ITS | Encounter Summary ---
Author Organization [facility] Address [address] [place] [address] Care Team Providers Care Street Cleaner Name Role Phone Gay De La Torre(Historical) CUT OFF MACHINE OPERATOR.SOX ANALYST Primary Care Provider Unavailable Manuel Klein MD Unavailable [phone] Manuel Klein MD Primary Care Provider +-4 Manuel Klein MD Unavailable [phone] Source Comments In the event this information is protected by the Federal Confidentiality of Alcohol and Drug AbusePatient Records regulations: The Federal rules restrict any use of the information to criminally investigate or prosecute any alcohol or drug abuse patient.[facility] Encounter Details Date Type Department Care Team (Late st Contact Info) Description 05/05/2021 Get Medical Advice Rheumatology [address] [place], [place] [phone] Sandra Park MD [address] [place], [place] [phone] Steroids Social History Tobacco Use Types Packs/Day [...] N ot on file 08/09/2020 Data from: https://www.neighborhoodatlas.[facility]/. Last address used for calculation Not [...] 2:00 PM EDT Infusion Center Hematology/Oncology [address] [place] [address] BENLYSTA - 03/21/2025 9:00 AM EDT Office Visit [facility] [address] [place] [address] 4 week follow up IVIG - pt to see MASON for this appt per Fara 03/21/2025 9:20 AM EDT Visit (SP) Office Hematology/Oncology [address] [place] [address] Jose Cho MD [address] [facility] [place] [address] 4 week follow up IVIG - pt to see MASON for this appt per [facility] 03/21/2025 9:40 AM EDT Infusion Center Hematology/Oncology [address] [place] [address] Gabbi, Chair [address] [place] [place] [address] 4 week follow up IVIG - pt to see MASON for this appt per [facility] 04/05/2025 2:00 PM EST Infusion Center Hematology/Oncology [address] [place] [address] BENLYSTA - 05/03/2025 2:00 PM EST Infusion Center Hematology/Oncology [address] [place] [address] BENLYSTA - documented as of this encounter Visit Diagnoses Diagnosis Other systemic lupus erythematosus with other organ involvement (HCC)- Primary documented in this encounter Care Teams Street Cleaner Relationship Specialty Start Date End Date Gay De La Torre(Historical), CUT OFF MACHINE OPERATOR.SOX ANALYST PCP - General Family Medicine 10/24/21 02/26/22 Manuel Klein MD PCP - General Family Medicine 02/27/22 Manuel Klein MD Referring Family Medicine 02/12/22 Manuel Klein MD [address] [place] [address] Referring Family Medicine 07/06/24 documented as of this encounter
--- OUTSIDE RECORDS SUMMARY | 2025-02-27 14:14 | XMS_ITS | Encounter Summary ---
Author Organization [facility] Address [address] [facility] [place] [address] Care Team Providers Care Sales Representative Consultant Name Role Phone House, Charles Culver MD Primary Care Provider Gay De La Torre MD Unavailable [phone] Encounter Details Date Type Department Care Team (Late Contact Info) Description 11/18/2023 Clinisync Result Encounter [facility] External Department Unsolicited Katy Valdivia, DO [address] [facility] Liliam [place], [place] [id number] Social History Tobacco Use Types Packs/Day Years [...] AM EDT Consult [facility] [address] [facility] [address] [place] [address] Terence Blum MD [address] [facility] 150 [place] [address] 03/19/2025 10:20 AM EDT Office Visit [facility] [address] [place] [address] Mary Grace Mejias MD [address] [place] [address] 07/25/2025 11:00 AM EST Office Visit [facility] [address] [place] [address] Cynthia English MD [address] [place] [address] documented as of this encounter Procedures [...] EDT Narrative 11/18/2023 4:42 PM EDT The [address] [address] Ultrasound Report Signed Patient: JONES PANIAGUA MR#: [id number] : 1980 Acct:[id number] Age/Sex: 43 / F ADM Date: 11/18/23 Loc: US Attending Dr: Katy Valdivia D.O. Ordering Physician: Katy Valdivia D.O. Date of Service: 11/18/23 Procedure(s): US pelvis w/ transvaginal Accession Number(s): [id number] cc: GAY DE LA TORRE ; Katy Valdivia D.O. The [place] [id number] Patient Name: JONES PANIAGUA MRN: [id number] date: 1980 Sex: F Assigned Patient Location: US Current Patient Location: US Accession/Order Number: [id number] Exam Date: 11/18/2023 14:00 Report Date: 11/18/2023 [...] Signed By: 11/18/23 1642 DD/ 1639 TD/TT: Bike Mechanic: Procedure Note Radiology, Radiologist, MD - 11/18/2023 [place] [address] Ultrasound Report Signed Patient: JONES PANIAGUA BMR#: [id number] : 1980Acct:[id number] Age/Sex: 43 / FADM Date: 11/18/23 Loc: US Attending Dr: Katy Valdivia D.O. Ordering Physician: Katy Valdivia D.O. Date of Service: 11/18/23 Procedure(s): US pelvis w/ transvaginal Accession Number(s): [id number] cc: GAY DE LA TORRE ; Katy Valdivia D.O. [place] [address] Patient Name: JONES PANIAGUA MRN: [facility]:[id number] date: 1980 Sex: F Assigned Patient Location: US Current Patient Location: US Accession/Order Number: [id number] Exam Date: 11/18/2023 14:00 Report Date: 11/18/2023 [...] M.D. Signed By:11/18/23 1642 DD/ 1639 TD/TT: Bike Mechanic: us Katy Valdivia DO [facility] Final Result * (ABNORMAL) ALL DEHYDROEPIANDROSTERONE (11/18/2023 3:04 PM EDT) DHEA, SERUM 25(A) 31 - 701 ng/dL [facility] Comment: This test was developed and its performance characteristics determined by [employer]. It has not been cleared or approved by the Food and Drug Administration. Performed at: [address] [id number] Head Still Operator: Senait Hardin MD, Phone: [phone] 11/18/2023 3:04 PM EDT 11/18/2023 3:14 PM EDT Narrative [facility] - 11/23/2023 12:10 PM EDT Katy Skip DO [facility] Final Result [facility] * (ABNORMAL) [facility] PROLACTIN (11/18/2023 3:04 PM EDT) PROLACTIN 4.7(A) 4.8 - 33.4 ng/mL [facility] Comment: Performed at: [address] [id number] Head Still Operator: Doyle Mendenhall PhD, Phone: [phone] 11/18/2023 3:04 PM EDT 11/18/2023 3:14 PM EDT Narrative [facility] - 11/19/2023 4:07 AM EDT Katy Skip DO [facility] Final Result Performing Organization Address City/[facility] Co de Phone Number [facility] TBH [...] EDT Katy Skip DO [facility] Final Result [facility] TB * ALL LUTEINIZING HORMONE (11/18/2023 3:04 PM EDT) LUTEINIZING HORMONE(LH) 24.9 . mIU/mL [facility] Comment: Adult Female Range Follicular phase 2.4 - 12.6 Ovulation phase 14.0 - 95.6 Luteal phase 1.0 - 11.4 Postmenopausal 7.7 - 58.5 11/18/2023 3:04 PM EDT 11/18/2023 3:14 PM EDT Narrative CLIN[facility]YNC - 11/19/2023 4:07 AM EDT Katy Skip DO [facility] Final Result Performing Organization Address [facility] Co de Phone Number [facility] TB * (ABNORMAL) ALL DHEA SULFATE (11/18/2023 3:04 PM EDT) DHEA-SULFATE 15.4(A) 57.3 - 279.2 ug/dL [facility] 11/18/2023 3:04 PM EDT 11/18/2023 3:14 PM EDT Narrative [facility] - 11/19/2023 4:07 AM EDT Katy Skip DO CL[facility] Final Result Performing Organization Address [facility] Co de Phone [facility] documented in this encounter Visit Diagnoses Not on filedocumented in this encounter Care Teams Sales Representative Consultant Relationship Specialty Start Date End Date Charles Nicole MD PCP - General Family Medicine 02/09/24 07/17/24 Gay De La Torre MD [address] [place] [address] Referring Physician Family Medicine 07/18/24 documented as of this encounter
--- OUTSIDE RECORDS SUMMARY | 2025-02-27 14:14 | XMS_ITS | Encounter Summary ---
Author Organization [facility] Address [address] [place] [address] Care Team Providers Care Tmd Teacher Name Role Phone Manuel Klein MD Unavailable [phone] Manuel Klein MD Primary Care Provider +-4 Manuel Klein MD Unavailable [phone] Source Comments In the event this [...] Patient Msg [facility] [address] [place] [address] Provider, Ccf Video Visit Social [...] N ot on file 08/09/2020 Data from: https://www.neighborhoodatlas.medicine.[facility]/. Last address used for [...] 2:00 PM EDT [facility] [address] [place] [address] BENLYSTA - 03/21/2025 9:00 AM EDT Office Visit [facility] Laboratory [address] [place] [address] 4 week follow up IVIG - pt to see MASON for this appt per [facility]ara 03/21/2025 9:20 AM EDT Visit (SP) Office Hematology/Oncology [address] [place] [address] Jose Cho MD [address] [place] [address] 4 week follow up IVIG - pt to see MASON for this appt per [facility] 03/21/2025 9:40 AM EDT Infusion Center Hematology/Oncology [address] [place] [address] [place], Chair [address] [place] [address] 4 week follow up IVIG - pt to see MASON for this appt per [facility] 04/05/2025 2:00 PM EST Infusion Center Hematology/Oncology [address] [place] [address] [place] [address] BENLYSTA - 05/03/2025 2:00 PM [facility] Infusion Center Hematology/Oncology [address] [place] [address] [place] [address] BENLYSTA - documented as of this encounter Visit Diagnoses Not on filedocumented in this encounter Care Teams Tmd Teacher Relationship Specialty Start Date End Date Manuel Klein MD PCP - General Family Medicine 02/27/22 Manuel Klein MD Referring Family Medicine 02/12/22 Manuel Klein MD [address] [place] [address] Referring Family Medicine 07/06/24 documented as of this encounter
--- OUTSIDE RECORDS SUMMARY | 2025-02-27 14:14 | XMS_ITS | Encounter Summary ---
Author Organization [facility] Address [address] [place] [address] Care Team Providers Care Decorator Hand Name Role Phone Britt, Gay(Historical) GRAIN THRESHER.CENTRAL STORES ATTENDANT Primary Care Provider Unavailable Manuel Klein MD Unavailable [phone] Manuel Klein MD Primary Care Provider +-4 Manuel Klein MD Unavailable [phone] Source Comments In the event this information is protected by the Federal Confidentiality of Alcohol and Drug AbusePatient Records regulations: The Federal rules restrict any use of the information to criminally investigate or prosecute any alcohol or drug abuse patient.[facility] Encounter Details Date Type Department Care Team (Late st Contact Info) Description 02/24/2022 Get Medical Advice Infectious Disease [address] [place] [address] Tiffany Head DO [address] [place] [address] Test results Social History Tobacco [...] ot on file 08/09/2020 Data from: https://www.neighborhoodatlas.medicine.[facility]/. Last address used for calculation Not on [...] EDT [facility] Center Hematology/Oncology [address] [place] [address] [place] [address] BENLYSTA - 03/21/2025 9:00 AM EDT Office Visit [facility] [address] [place] [address] 4 week follow up IVIG - pt to see MASON for this appt per [facility] 03/21/2025 9:20 AM EDT Visit (SP) Office Hematology/Oncology [address] [place] [address] Jose Cho MD [address] [place] [address] 4 week follow up IVIG - pt to see MASON for this appt per [facility] 03/21/2025 9:40 AM EDT Infusion Center Hematology/Oncology [address] [place] [address] [place], Chair [address] [place] [address] 4 week follow up IVIG - pt to see MASON for this appt per [facility] 04/05/2025 2:00 PM EST Infusion Center Hematology/Oncology [address] [place] [address] BENLYSTA - 05/03/2025 2:00 PM [facility] Infusion Center Hematology/Oncology [address] [place] [address] BENLYSTA - documented as of this encounter Visit Diagnoses Not on filedocumented in this encounter Care Teams Decorator Hand Relationship Specialty Start Date End Date Gay De La Torre(Historical), GRAIN THRESHER.CENTRAL STORES ATTENDANT PCP - General Family Medicine 10/24/21 02/26/22 Manuel Klein MD PCP - General Family Medicine 02/27/22 Manuel Klein MD Referring Family Medicine 02/12/22 Manuel Klein MD [address] [facility] [place] [address] Referring Family Medicine 07/06/24 documented as of this encounter
--- OUTSIDE RECORDS SUMMARY | 2025-02-27 14:14 | XMS_ITS | Clinical Summary ---
Author Organization [facility] Address [address] [place] [address] Phone Care Team Providers Care Dot Compliance Manager Name Role Phone Mitali, Michelle London BOBBIN WINDER TENDER-GROCERY STORE MANAGER Unavailable [phone] Kenneth Patel MD Unavailable [phone] Gay De La Torre BOBBIN WINDER TENDER-GROCERY STORE MANAGER Primary Care Provider Allergies Active Allergy Reactions [...] 10/24/19 Active ergocalciferol (Vitamin D-2) 1.25 MG (18651 UT) capsule Take 1 capsule (50,000 Units) [...] Description 07/26/2025 11:00 AM EST Office Visit [facility] [address] [facility] [address] [place] [address] Lois Arguelles MD [address] [facility] [address] [place] [address] Health Maintenance Due Date Last [...] Name Priority Date/Time Associated Diagnosis Comments CONVERTED AMBULATORY NURSE CYTOLOGY Routine 05/04/2008 12:00 AM EST from Last 3 Months or Most Recently Relevant to Health Maintenance Results * CONVERTED AMBULATORY NURSE CYTOLOGY (05/04/2008 12:00 AM EST) Pathology Report [...] clinical findings. - Signed by: JESSICA ORTIZ [facility] 05/09/08 Electronically Signed Out By [facility], Cytology/ By the signature on this report, the individual or group listed as making the Final Interpretation/Nayeil gnosis certifies that they have reviewed this [...] Source of Specimen A: Unknown Part Type [facility] Department of Pathology [address] COPATH CONVERTED FINAL DIAGNOSIS Satisfactory for [...] clinical findings. - Signed by: JESSICA ORTIZ [facility] 05/09/08 [facility] COPATH CONVERTED CLINICAL DIAGNOSIS-HIST ORY - HISTORY & COMMENTS LMP: 02/14/08 Reflex HPV ordered if result is ASCUS [facility] Milmenus.comATH CONVERTED SLIDE-BLOCK DESCRIPTION - TISSUES - 1. CERVICAL THIN PREP - [facility] CONVERTED REPORT COMMENTS Standard Case # [id number] DOS: 05/04/08 - ORD PHYSICIAN: Jose Blackburn MD - ORD PROCEDURES - CYTO PAP TLP MAN / - COPIES TO: Jose Blackburn MD - Status History - ENT 05/07/08 [address] DIAG 05/09/08 0750 JESSICA ORTIZ 05/09/08 1524 JESSICA ORTIZ - Standard Conversion Report - [facility] CONVERTED FINAL REPORT PDF LINK TO COPY AND PASTE \copathshare\copa th\PDF [id number].[email or web address] [facility] Unrecognized Part Type 05/04/2008 05/07/2008 11:28 AM EST us Copath Conversion LAB CYTOLOGY ORDERABLES Final Result [facility] COPATH [address] [place] [address] from Last 3 Months or Most Recently Relevant to Health Maintenance [facility] [place] Care Teams Dot Compliance Manager Relationship Specialty Start Date End Date Gay De La Torre APRN-GROCERY STORE MANAGER [address] [place] [phone] PCP - General 07/13/23 Michelle Jasmine APRN-GROCERY STORE MANAGER Nurse Practitioner Cardiology 06/08/23 Kenneth Patel MD Consulting Physician Cardiology 06/23/23
--- OUTSIDE RECORDS SUMMARY | 2025-02-27 14:14 | XMS_ITS | Encounter Summary ---
Author Organization [facility] Address [address] [place] [address] Care Team Providers Care Beam Worker Name Role Phone Manuel Klein MD Unavailable [phone] Manuel Klein MD Primary Care Provider +-4 Manuel Klein MD Unavailable [phone] Source Comments In the event this information is protected by the Federal Confidentiality of Alcohol and Drug AbusePatient Records regulations: The Federal rules restrict any use of the information to criminally investigate or prosecute any alcohol or drug abuse patient.[facility] Encounter Details Date Type Department Care Team (Late st Contact Info) Description 06/10/2022 Patient Msg Hematology/Oncology [address] [place] [address] Cele Marshall Nurse Dre [address] [place] [place] [address] Appointment Cancellation Request Social History Tobacco [...] file 08/09/2020 Data from: https://www.neighborhoodatlas.medicine.[facility]/. Last address used for [...] EDT [facility] Center Hematology/Oncology [address] [place] [address] BENLYSTA - 03/21/2025 9:00 AM EDT [facility] Visit [facility] [place] [address] 4 week follow up IVIG - pt to see MASON for this appt per [facility] 03/21/2025 9:20 AM EDT Visit (SP) Office Hematology/Oncology [address] [place] [address] Jose Cho MD [address] [place] [address] 4 week follow up IVIG - pt to see MASON for this appt per [facility] 03/21/2025 9:40 AM EDT Infusion Center Hematology/Oncology [address] [place] [address] [place], Chair [address] [place] [address] 4 week follow up IVIG - pt to see MASON for this appt per [facility] 04/05/2025 2:00 PM EST Infusion Center Hematology/Oncology [address] [place] [address] BENLYSTA - 05/03/2025 2:00 PM [facility] Infusion Center Hematology/Oncology [address] [place] [address] BENLYSTA - documented as of this encounter Visit Diagnoses Not on filedocumented in this encounter Care Teams Beam Worker Relationship Specialty Start Date End Date Manuel Klein MD PCP - General Family Medicine 02/27/22 Manuel Klein MD Referring Family Medicine 02/12/22 Manuel Klein MD [address] [place] [address] Referring Family Medicine 07/06/24 documented as of this encounter
--- OUTSIDE RECORDS SUMMARY | 2025-02-27 14:14 | XMS_ITS | Encounter Summary ---
Author Organization [facility] Address [address] [place] [address] Care Team Providers Care Bar And Filler Assembler Name Role Phone Manuel Klein MD Unavailable [phone] Manuel Klein MD Primary Care Provider +-4 Manuel Klein MD Unavailable [phone] Source Comments In the event this information is protected by the Federal Confidentiality of Alcohol and Drug AbusePatient Records regulations: The Federal rules restrict any use of the information to criminally investigate or prosecute any alcohol or drug abuse patient.[facility] Encounter Details Date Type Department Care Team (Late st Contact Info) Description 07/09/2022 Get Medical Advice [facility] [address] [place] [address] Christie Phan MD [address] [place] [address] Cymbalta Social History Tobacco Use [...] on file 08/09/2020 Data from: https://www.neighborhoodatlas.medicine.[facility]/. Last address used for calculation Not [...] [facility] Center Hematology/Oncology [address] [facility] [place] [address] BENLYSTA - 03/21/2025 9:00 AM EDT Office Visit [facility] Laboratory [address] [place] [address] [place] [address] 4 week follow up IVIG - pt to see MASON for this appt per [facility] 03/21/2025 9:20 AM EDT Visit (SP) Office Hematology/Oncology [address] [facility] [place] [address] Jose Cho MD [address] [facility] [place] [address] 4 week follow up IVIG - pt to see MASON for this appt per [facility] 03/21/2025 9:40 AM EDT Infusion Center Hematology/Oncology [address] [facility] [place] [address] [place], Chair [address] [facility] [place] [address] 4 week follow up IVIG - pt to see MASON for this appt per [facility] 04/05/2025 2:00 PM EST Infusion Center Hematology/Oncology [address] [facility] [place] [address] BENLYSTA - 05/03/2025 2:00 PM EST Infusion Center Hematology/Oncology [address] [facility] [place] [address] BENLYSTA - documented as of this encounter Visit Diagnoses Not on filedocumented in this encounter Care Teams Bar And Filler Assembler Relationship Specialty Start Date End Date Manuel Klein MD PCP - General Family Medicine 02/27/22 Manuel Klein MD Referring Family Medicine 02/12/22 Manuel Klein MD [address] [place] [address] Referring Family Medicine 07/06/24 documented as of this encounter
--- OUTSIDE RECORDS SUMMARY | 2025-02-27 14:14 | XMS_ITS | Encounter Summary ---
Author Organization [facility] Address [address] [place] [address] Care Team Providers Care Silverlight Developer Name Role Phone Manuel Klein MD Unavailable [phone] Manuel Klein MD Primary Care Provider +-4 Manuel Klein MD Unavailable [phone] Source Comments In the event this information is protected by the Federal Confidentiality of Alcohol and Drug AbusePatient Records regulations: The Federal rules restrict any use of the information to criminally investigate or prosecute any alcohol or drug abuse patient.[facility] Encounter Details Date Type Department Care Team (Late st Contact Info) Description 03/18/2022 Get Medical Advice Allergy [address] [place] [phone] Misty Nelson MD [address] [place] [address] Test results Social History Tobacco Use [...] N ot on file 08/09/2020 Data from: https://www.neighborhoodatlas.medicine.[facility]/. Last address used for calculation Not [...] PM EDT Infusion Center Hematology/Oncology [address] [facility] [place] [address] BENLYSTA - 03/21/2025 9:00 AM EDT Office Visit [facility] Laboratory [address] [place] [address] 4 week follow up IVIG - pt to see MASON for this appt per [facility] 03/21/2025 9:20 AM EDT Visit (SP) Office Hematology/Oncology [address] [facility] [place] [address] Jose Cho MD [address] [facility] [place] [address] 4 week follow up IVIG - pt to see MASON for this appt per [facility] 03/21/2025 9:40 AM EDT Infusion Center Hematology/Oncology [address] [facility] [place] [address] [place], Chair [address] [facility] [place] [address] 4 week follow up IVIG - pt to see MASON for this appt per [facility] 04/05/2025 2:00 PM EST Infusion Center Hematology/Oncology [address] [place] [address] BENLYSTA - 05/03/2025 2:00 PM [facility] Infusion Center Hematology/Oncology [address] [facility] [place] [address] BENLYSTA - documented as of this encounter Visit Diagnoses Not on filedocumented in this encounter Care Teams Silverlight Developer Relationship Specialty Start Date End Date Manuel Kleni MD PCP - General Family Medicine 02/27/22 Manuel Klein MD Referring Family Medicine 02/12/22 Manuel Klein MD [address] [place] [address] Referring Family Medicine 07/06/24 documented as of this encounter
--- OUTSIDE RECORDS SUMMARY | 2025-02-27 14:14 | XMS_ITS | Encounter Summary ---
Author Organization [facility] Address [address] [place] [address] Care Team Providers Care Lane Marker Installer Name Role Phone Manuel Klein MD Unavailable [phone] Manuel Klein MD Primary Care Provider +-4 Manuel Klein MD Unavailable [phone] Source Comments In the event this information is protected by the Federal Confidentiality of Alcohol and Drug AbusePatient Records regulations: The Federal rules restrict any use of the information to criminally investigate or prosecute any alcohol or drug abuse patient.[facility] Encounter Details Date Type Department Care Team (Late st Contact Info) Description 03/26/2022 Patient Msg Allergy [address] [place] [phone] Misty Nelson MD [facility] [place] [address] lab results Social History Tobacco [...] ot on file 08/09/2020 Data from: https://www.neighborhoodatlas.medicine.[facility]/. Last address used for calculation Not [...] Info) Description 03/08/2025 2:00 PM EDT [facility] Center Hematology/Oncology [address] [place] [address] [place] [address] BENLYSTA - 03/21/2025 9:00 AM EDT Office Visit [facility] Laboratory [address] [place] [address] 4 week follow up IVIG - pt to see MASON for this appt per [facility] 03/21/2025 9:20 AM EDT Visit (SP) Office Hematology/Oncology [address] [facility] [place] [address] Jose Cho MD [address] [place] [address] 4 week follow up IVIG - pt to see MASON for this appt per [facility] 03/21/2025 9:40 AM EDT Infusion Center Hematology/Oncology [address] [place] [address] [place], [facility] [address] [place] [address] 4 week follow up IVIG - pt to see MASON for this appt per [facility] 04/05/2025 2:00 PM EST Infusion Center Hematology/Oncology [address] [facility] [place] [address] BENLYSTA - 05/03/2025 2:00 PM [facility] Infusion Center Hematology/Oncology [address] [place] [address] BENLYSTA - documented as of this encounter Visit Diagnoses Not on filedocumented in this encounter Care Teams Lane Marker Installer Relationship Specialty Start Date End Date Manuel Klein MD PCP - General Family Medicine 02/27/22 Manuel Klein MD Referring Family Medicine 02/12/22 Manuel Klein MD [address] [place] [address] Referring Family Medicine 07/06/24 documented as of this encounter
--- OUTSIDE RECORDS SUMMARY | 2025-02-27 14:14 | XMS_ITS | Encounter Summary ---
Author Organization [facility] Address [address] [place] [address] Care Team Providers Care Anesthesiology Faculty Name Role Phone Manuel Klein MD Unavailable [phone] Manuel Klein MD Primary Care Provider +-4 Maunel Klein MD Unavailable [phone] Source Comments In the event this information is protected by the Federal Confidentiality of Alcohol and Drug AbusePatient Records regulations: The Federal rules restrict any use of the information to criminally investigate or prosecute any alcohol or drug abuse patient.[facility] Encounter Details Date Type Department Care Team (Late st Contact Info) Description 02/27/2022 Get Medical Advice Infectious Disease [address] [place] [address] Tiffany Head DO [address] [place] [address] Blood work Social History Tobacco [...] ot on file 08/09/2020 Data from: https://www.neighborhoodatlas.medicine.[facility]/. Last address used for calculation [...] EDT [facility] Hematology/Oncology [address] [place] [address] BENLYSTA - 03/21/2025 9:00 AM EDT Office Visit [facility] [address] [place] [address] [place] [address] 4 week follow up IVIG - pt to see MASON for this appt per [facility] 03/21/2025 9:20 AM EDT Visit (SP) Office Hematology/Oncology [address] [address] Jose Cho MD [address] [place] [address] 4 week follow up IVIG - pt to see MASON for this appt per [facility] 03/21/2025 9:40 AM EDT Infusion Center Hematology/Oncology [address] [place] [address] Gabbi, Chair [address] [place] [address] 4 week follow up IVIG - pt to see MASON for this appt per [facility] 04/05/2025 2:00 PM EST Infusion Center Hematology/Oncology [address] [place] [address] BENLYSTA - 05/03/2025 2:00 PM EST Infusion Center Hematology/Oncology [address] [place] [address] BENLYSTA - documented as of this encounter Visit Diagnoses Not on filedocumented in this encounter Care Teams Anesthesiology Faculty Relationship Specialty Start Date End Date Manuel Klein MD PCP - General Family Medicine 02/27/22 Manuel Klein MD Referring Family Medicine 02/12/22 Manuel Klein MD [address] [place] [address] Referring Family Medicine 07/06/24 documented as of this encounter
--- OUTSIDE RECORDS SUMMARY | 2025-02-27 14:14 | XMS_ITS | Encounter Summary ---
Author Organization [facility] Address [address] [place] [address] Care Team Providers Care Junior Administrative Assistant Name Role Phone Manuel Klein MD Unavailable [phone] Manuel Klein MD Primary Care Provider +-4 Manuel Klein MD Unavailable [phone] Source Comments In the event this information is protected by the Federal Confidentiality of Alcohol and Drug AbusePatient Records regulations: The Federal rules restrict any use of the information to criminally investigate or prosecute any alcohol or drug abuse patient.[facility] Encounter Details Date Type Department Care Team (Late st Contact Info) Description 07/09/2022 Patient Msg [facility] [address] [place] [address] Christie Phan MD [address] [place] [address] Appointment Follow-UP Social History Tobacco [...] Data from: https://www.neighborhoodatlas.medicine.[facility]/. Last address used for [...] [facility] Hematology/Oncology [address] [address] BENLYSTA - 03/21/2025 9:00 AM EDT Office Visit [facility] [address] [place] [address] [place] [address] 4 week follow up IVIG - pt to see MASON for this appt per [facility] 03/21/2025 9:20 AM EDT Visit (SP) Office Hematology/Oncology [address] [address] Jose Cho MD [address] [place] [address] 4 week follow up IVIG - pt to see MASON for this appt per [facility] 03/21/2025 9:40 AM EDT Infusion Center Hematology/Oncology [address] [address] Gabbi, Chair [address] [place] [address] 4 week follow up IVIG - pt to see MASON for this appt per [facility] 04/05/2025 2:00 PM EST Infusion Center Hematology/Oncology [address] [address] BENLYSTA - 05/03/2025 2:00 PM EST Infusion Center Hematology/Oncology [address] [place] [address] BENLYSTA - documented as of this encounter Visit Diagnoses Not on filedocumented in this encounter Care Teams Junior Administrative Assistant Relationship Specialty Start Date End Date Manuel Klein MD PCP - General Family Medicine 02/27/22 Manuel Klein MD Referring Family Medicine 02/12/22 Manuel Klein MD [address] [place] [address] Referring Family Medicine 07/06/24 documented as of this encounter
--- OUTSIDE RECORDS SUMMARY | 2025-02-27 14:14 | XMS_ITS | Encounter Summary ---
Author Organization [facility] Address [address] [place] [address] Care Team Providers Care Furnace Helper Name Role Phone Manuel Klein MD Unavailable [phone] Manuel Klein MD Primary Care Provider +-4 Manuel Klein MD Unavailable [phone] Source Comments In the event this information is protected by the Federal Confidentiality of Alcohol and Drug AbusePatient Records regulations: The Federal rules restrict any use of the information to criminally investigate or prosecute any alcohol or drug abuse patient.[facility] Encounter Details Date Type Department Care Team (Latest Contact Info) Description 03/29/2024 Patient Msg [facility] [address] [place] [address] Akiko Cooper MD [address] [place] [address] breath test scheduling Social History Tobacco Use [...] risk 4 09/24/2022 Data from: https://www.neighborhoodatlas.medicine.[facility]/. Last address used for calculation [address] [...] EDT [facility] Hematology/Oncology [address] [place] [address] BENLYSTA - 03/21/2025 9:00 AM EDT Office Visit [facility] [address] [place] [address] 4 week follow up IVIG - pt to see MASON for this appt per [facility] 03/21/2025 9:20 AM EDT Visit (SP) Office Hematology/Oncology [address] [place] [address] Jose Cho MD [address] [place] [address] 4 week follow up IVIG - pt to see MASON for this appt per [facility] 03/21/2025 9:40 AM EDT Infusion Center Hematology/Oncology [address] [place] [address] Gabbi, Chair [address] [place] [address] 4 week follow up IVIG - pt to see MASON for this appt per [facility] 04/05/2025 2:00 PM EST Infusion Center Hematology/Oncology [address] [place] [address] BENLYSTA - 05/03/2025 2:00 PM [facility] Infusion Center Hematology/Oncology [address] [place] [address] BENLYSTA - documented as of this encounter Visit Diagnoses Not on filedocumented in this encounter Care Teams Furnace Helper Relationship Specialty Start Date End Date Manuel Klein MD PCP - General Family Medicine 02/27/22 Manuel Klein MD Referring Family Medicine 02/12/22 Manuel Klein MD [address] [place] [address] Referring Family Medicine 07/06/24 documented as of this encounter
--- OUTSIDE RECORDS SUMMARY | 2025-02-27 14:14 | XMS_ITS | Encounter Summary ---
Author Organization [facility] Address [address] [facility] [place] [address] Care Team Providers Care Paper Rewinder Name Role Phone Gay De La Torre MD Unavailable [phone] Encounter Details Date Type Department Care [...] EDT Consult [facility] [address] [address] Terence Blum MD 703 [facility] 150 [place] [address] 03/19/2025 10:20 AM EDT Office Visit [facility] [address] [facility] [address] [place] [address] Mary Grace Mejias MD 112 [facility] 130 [place] [address] 07/25/2025 11:00 AM EST Office Visit [facility] [address] [place] [address] Cynthia English MD [address] [place] [address] documented as of this encounter Visit Diagnoses Not on filedocumented in this encounter Care Teams Paper Rewinder Relationship Specialty Start Date End Date Gay De La Torre MD [address] [place] [address] Referring Physician Family Medicine 07/18/24 documented as of this encounter
--- OUTSIDE RECORDS SUMMARY | 2025-02-27 14:14 | XMS_ITS | Encounter Summary ---
Author Organization [facility] Address [address] [place] [address] Care Team Providers Care Parcel Post Carrier Name Role Phone House, Charles Culver MD Primary Care Provider [phone] Gay De La Torre MD Unavailable [phone] Encounter Details Date Type Department Care Team (Late Contact Info) Description 09/29/2023 Clinisync Result Encounter [facility] External Department Unsolicited Zita Rogers, CARDIOLOGY MANAGER 5319 [facility] [address] [address] Social History Tobacco Use Types Packs/Day Years [...] [facility] 703 [facility] 150 [place] [address] Terence Blum MD 703 [facility] 150 [place] [address] 03/19/2025 10:20 AM EDT Office Visit [facility] [address] [facility] 900 [place] [address] Mary Grace Mejias MD 112 [facility] 130 [place] [address] 07/25/2025 11:00 AM EST Office Visit [facility] [address] [place] [address] Cynthia English MD [address] [place] [address] documented as of this encounter Procedures Procedure Name Priority Date/Time Associated Diagnosis Comments XR LUMBAR SPINE MIN 4V 09/29/2023 7:22 AM EDT documented in this encounter Results * XR LUMBAR SPINE MIN 4V (09/29/2023 7:22 AM EDT) Anatomical Region Laterality Modality Other 09/29/2023 7:22 AM EDT Narrative 09/29/2023 7:25 AM EDT [address] [address] XRay Report Signed Patient: JONES PANIAGUA MR#: [id number] : 1980 Acct:[id number] Age/Sex: 42 / F ADM Date: 09/28/23 Loc: RAD Attending Dr: ZITA ROGERS Ordering Physician: ZITA ROGERS Date of Service: 09/28/23 Procedure(s): XR lumbar spine min 4V Accession Number(s): [id number] cc: GAY DE LA TORRE ; ZITA ROGERS The [address] [address] Patient Name: JONES PANIAGUA MRN: [id number] date: 1980 Sex: F Assigned Patient Location: RAD Current Patient Location: Accession/Order Number: [id number] Exam Date: 09/28/2023 14:41 Report Date: 09/29/2023 [...] M.D. Signed By: 09/29/2325 DD/ 1 TD/TT: Printing Plate Clerk: Procedure Note Radiology, Radiologist, MD - 09/29/2023 [place] [address] XRay Report Signed Patient: JONES PANIAGUA R#: [id number] : 1980Acct:[id number] Age/Sex: 42 / FADM Date: 09/28/23 Loc: [facility] Attending Dr: ZITA ROGERS Ordering Physician: ZITA ROGERS Date of Service: 09/28/23 Procedure(s): XR lumbar spine min 4V Accession Number(s): [id number] cc: GAY DE LA TORRE ; ZITA ROGERS The [place] [id number] Patient Name: JONES PANIAGUA MRN: [id number] date: 1980 Sex: F Assigned Patient Location: [facility] Current Patient Location: Accession/Order Number: [id number] Exam Date: 09/28/2023 14:41 Report Date: 09/29/2023 [...] Shaikh M.D. Signed By:09/29/23724 DD/ 1 TD/TT: Printing Plate Clerk: us Zita Rogers CARDIOLOGY MANAGER [facility] Final Result documented in this encounter Visit Diagnoses Not on filedocumented in this encounter Care Teams Parcel Post Carrier Relationship Specialty Start Date End Date Charles Nicole MD PCP - General Family Medicine 02/09/24 07/17/24 Gay De La Torre MD [address] [place], [place] [address] Referring Physician Family Medicine 07/18/24 documented as of this encounter
--- OUTSIDE RECORDS SUMMARY | 2025-02-27 14:14 | XMS_ITS | Encounter Summary ---
Author Organization [facility] Address [address] [facility] [place] [address] Care Team Providers Care Airport Sales Agent Name Role Phone Gay De La Torre MD Unavailable [phone] Encounter Details Date Type Department Care Team (Late st Contact Info) Description 01/30/2025 Results Follow-Up [facility] [address] [place] [address] Sabi Barker LPN [address] [employer] [place] [phone] Left breast US limited Social History Tobacco [...] Consult [facility] [address] [facility] 150 [place] [address] Terence Blum MD 703 [facility] [address] [place] [address] 03/19/2025 10:20 AM EDT Office Visit [facility] [address] [place] [address] Mary Grace Mejias MD 112 [facility] 130 [place] [address] 07/25/2025 11:00 AM EST Office Visit [facility] [address] [place] [address] Cynthia English MD [address] [place] [address] documented as of this encounter Visit Diagnoses Not on filedocumented in this encounter Care Teams Airport Sales Agent Relationship Specialty Start Date End Date Gay De La Torre MD [address] [place] [address] Referring Physician Family Medicine 07/18/24 documented as of this encounter
--- OUTSIDE RECORDS SUMMARY | 2025-02-27 14:14 | XMS_ITS | Encounter Summary ---
Author Organization [facility] Address [facility] [place] [address] Care Team Providers Care Medical Terminologist Name Role Phone Manuel Klein MD Unavailable [phone] Manuel Klein MD Primary Care Provider +-4 Manuel Klein MD Unavailable [phone] Source Comments In the event this information is protected by the Federal Confidentiality of Alcohol and Drug AbusePatient Records regulations: The Federal rules restrict any use of the information to criminally investigate or prosecute any alcohol or drug abuse patient.[facility] Encounter Details Date Type Department Care Team (Late st Contact Info) Description 07/27/2022 Patient Msg Neurology [address] [place] [address] Lexus Heck APRN.[place] [id number] Sleep Follow up Social History Tobacco Use [...] on file 08/09/2020 Data from: https://www.neighborhoodatlas.medicine.[facility]/. Last address used for calculation Not on [...] Info) Description 03/08/2025 2:00 PM EDT [facility] Hematology/Oncology [address] [place] [address] BENLYSTA - 03/21/2025 9:00 AM EDT Office Visit [facility] [address] [place] [address] [place] [address] 4 week follow up IVIG - pt to see MASON for this appt per [facility] 03/21/2025 9:20 AM EDT Visit (SP) Office Hematology/Oncology [address] [facility] [place] [address] Jose Cho MD [address] [place] [address] 4 week follow up IVIG - pt to see MASON for this appt per [facility] 03/21/2025 9:40 AM EDT Infusion Center Hematology/Oncology [address] [place] [address] Gabbi, Chair [address] [place] [address] 4 week follow up IVIG - pt to see MASON for this appt per [facility] 04/05/2025 2:00 PM EST Infusion Center Hematology/Oncology [address] [place] [address] BENLYSTA - 05/03/2025 2:00 PM [facility] Infusion Center Hematology/Oncology [address] [place] [address] BENLYSTA - documented as of this encounter Visit Diagnoses Not on filedocumented in this encounter Care Teams Medical Terminologist Relationship Specialty Start Date End Date Manuel Klein MD PCP - General Family Medicine 02/27/22 Manuel Klein MD Referring Family Medicine 02/12/22 Manuel Klein MD [address] [place] [address] Referring Family Medicine 07/06/24 documented as of this encounter
--- OUTSIDE RECORDS SUMMARY | 2025-02-27 14:15 | XMS_ITS | Encounter Summary ---
Author Organization [facility] Address [address] [place] [address] Care Team Providers Care Line Assembler Aircraft Name Role Phone House, Charles Culver MD Primary Care Provider Gay De La Torre MD Unavailable [phone] Encounter Details Date Type Department Care Team (Late Contact Info) Description 10/19/2022 Abstract [facility] [address] [facility] [address] [place] [phone] Cynthia English MD [address] [facility] 350 [place] [address] Social History Tobacco Use Types Packs/Day Years [...] EDT Consult [facility] 703 [facility] 150 [place] [address] Terence Blum MD 703 [facility] 150 [place] [address] 03/19/2025 10:20 AM EDT Office Visit [facility] [address] [place] [address] Mary Grace Mejias MD 112 [facility] [address] [place] [address] 07/25/2025 11:00 AM EST Office Visit [facility] [address] [place] [address] Cynthia English MD [address] [place] [address] documented as of this encounter Visit Diagnoses Not on filedocumented in this encounter Care Teams Line Assembler Aircraft Relationship Specialty Start Date End Date Charles Nicole MD PCP - General Family Medicine 02/09/24 07/17/24 Gay De La Torre MD [address] [place] [address] Referring Physician Family Medicine 07/18/24 documented as of this encounter
--- OUTSIDE RECORDS SUMMARY | 2025-02-27 14:15 | XMS_ITS | Encounter Summary ---
Author Organization [facility] Address [id number] [address] [place] [address] Care Team Providers Care Fur Grader Name Role Phone Unavailable Primary Care Provider Unavailabl e Encounter Details Date Type Department Care Team (Late st Contact Info) Description 05/05/2024 Orders Only [facility] [address] [place] [address] Felicia Payne CMA Cold extremities; Pain of lower extremity, unspecified laterality; Systemic lupus erythematosus ([facility]) Social History Tobacco Use Types Packs/Day [...]
--- OUTSIDE RECORDS SUMMARY | 2025-02-27 14:15 | XMS_ITS | Encounter Summary ---
Author Organization [facility] Address [address] [place] [address] Care Team Providers Care Pooling Operator Name Role Phone Manuel Klein MD Unavailable [phone] Manuel Klein MD Primary Care Provider +-4 Manuel Klein MD Unavailable [phone] Source Comments In the event this information is protected by the Federal Confidentiality of Alcohol and Drug AbusePatient Records regulations: The Federal rules restrict any use of the information to criminally investigate or prosecute any alcohol or drug abuse patient.[facility] Encounter Details Date Type Department Care Team (Late st Contact Info) Description 12/24/2022 Patient Msg Allergy [address] [place] [phone] Misty Nelson MD [facility] [place] [address] Request an Appointment Social History [...] risk 4 09/24/2022 Data from: https://www.neighborhoodatlas.medicine.[facility]/. Last address used for calculation [address] 09/24/2022 Comments No Sex and Gender [...] PM EDT [facility] Hematology/Oncology [address] [place] [address] BENLYSTA - 03/21/2025 9:00 AM EDT [facility] [place] [address] 4 week follow up IVIG - pt to see MASON for this appt per [facility] 03/21/2025 9:20 AM EDT Visit (SP) Office Hematology/Oncology [address] [place] [address] Jose Coh MD [address] [place] [address] 4 week follow up IVIG - pt to see MASON for this appt per [facility] 03/21/2025 9:40 AM EDT Infusion Center Hematology/Oncology [address] [place] [address] Gabbi, Chair [address] [place] [address] 4 week follow up IVIG - pt to see MASON for this appt per [facility] 04/05/2025 2:00 PM EST Infusion Center Hematology/Oncology [address] [place] [address] BENLYSTA - 05/03/2025 2:00 PM EST Infusion Center Hematology/Oncology [address] [place] [address] BENLYSTA - documented as of this encounter Visit Diagnoses Not on filedocumented in this encounter Care Teams Pooling Operator Relationship Specialty Start Date End Date Manuel Klein MD PCP - General Family Medicine 02/27/22 Manuel Klein MD Referring Family Medicine 02/12/22 Manuel Klein MD [address] [place] [address] Referring Family Medicine 07/06/24 documented as of this encounter
--- OUTSIDE RECORDS SUMMARY | 2025-02-27 14:15 | XMS_ITS | Encounter Summary ---
Author Organization [facility] Address [address] [place] [address] Care Team Providers Care Cellophane Press Operator Name Role Phone Manuel Klein MD Unavailable [phone] Manuel Klein MD Primary Care Provider +-4 Manuel Klein MD Unavailable [phone] Source Comments In the event this [...] Medical Advice [facility] [address] [place] [address] Christie Phan MD [address] [address] Trulicity Social History Tobacco Use [...] is lower risk 4 09/24/2022 Data from: https://www.neighborhoodatlas.medicine.[facility]/. Last address used for calculation [address] 09/24/2022 Comments No Sex and Gender [...] Description 03/08/2025 2:00 PM EDT [facility] Center Hematology/Oncology [facility] [place] [address] BENLYSTA - 03/21/2025 9:00 AM EDT Office Visit [facility] [place] [address] 4 week follow up IVIG - pt to see MASON for this appt per [facility] 03/21/2025 9:20 AM EDT Visit (SP) Office Hematology/Oncology [address] [address] Jose Cho MD [address] [place] [address] 4 week follow up IVIG - pt to see MASON for this appt per [facility] 03/21/2025 9:40 AM EDT Infusion Center Hematology/Oncology [address] [address] Gabbi, Chair 4 [address] [place] [address] 4 week follow up IVIG - pt to see MASON for this appt per [facility] 04/05/2025 2:00 PM EST Infusion Center Hematology/Oncology [address] [address] BENLYSTA - 05/03/2025 2:00 PM EST Infusion Center Hematology/Oncology [address] [address] BENLYSTA - documented as of this encounter Visit Diagnoses Not on filedocumented in this encounter Care Teams Cellophane Press Operator Relationship Specialty Start Date End Date Manuel Klein MD PCP - General Family Medicine 02/27/22 Manuel Klein MD Referring Family Medicine 02/12/22 Manuel Klein MD [address] [place] [address] Referring Family Medicine 07/06/24 documented as of this encounter
--- OUTSIDE RECORDS SUMMARY | 2025-02-27 14:15 | XMS_ITS | Encounter Summary ---
Author Organization [facility] Address [address] [place] [address] Care Team Providers Care Content Checker Name Role Phone Manuel Klein MD Unavailable [phone] Manuel Klein MD Primary Care Provider +-4 Manuel Klein MD Unavailable [phone] Source Comments In the event this information is protected by the Federal Confidentiality of Alcohol and Drug AbusePatient Records regulations: The Federal rules restrict any use of the information to criminally investigate or prosecute any alcohol or drug abuse patient.[facility] Encounter Details Date Type Department Care Team (Late st Contact Info) Description 10/15/2022 Get Medical Advice Allergy [address] [place] [address] [phone] Misty Nelson MD [address] [place] [address] Vaccine Social History Tobacco Use Types [...] 4 09/24/2022 Data from: https://www.neighborhoodatlas.medicine.[facility]/. Last address used for calculation [address] 09/24/2022 Comments No Sex and Gender [...] [facility] Center Hematology/Oncology [facility] [place] [address] BENLYSTA - 03/21/2025 9:00 AM EDT Office Visit [facility] Laboratory [facility] [place] [address] 4 week follow up IVIG - pt to see MASON for this appt per [facility] 03/21/2025 9:20 AM EDT Visit (SP) Office Hematology/Oncology [address] [place] [address] Jose Cho MD [address] [place] [address] 4 week follow up IVIG - pt to see MASON for this appt per [facility] 03/21/2025 9:40 AM EDT Infusion Center Hematology/Oncology [address] [place] [address] Gabbi, Chair [address] [place] [address] 4 week follow up IVIG - pt to see MASON for this appt per [facility] 04/05/2025 2:00 PM EST Infusion Center Hematology/Oncology [address] [place] [address] BENLYSTA - 05/03/2025 2:00 PM EST Infusion Center Hematology/Oncology [address] [place] [address] BENLYSTA - documented as of this encounter Visit Diagnoses Not on filedocumented in this encounter Care Teams Content Checker Relationship Specialty Start Date End Date Manuel Klein MD PCP - General Family Medicine 02/27/22 Manuel Klein MD Referring Family Medicine 02/12/22 Manuel Klein MD [address] [place] [address] Referring Family Medicine 07/06/24 documented as of this encounter
--- OUTSIDE RECORDS SUMMARY | 2025-02-27 14:15 | XMS_ITS | Encounter Summary ---
Author Organization [facility] Address [address] [place] [address] Care Team Providers Care Submarine Cable Equipment Technician Name Role Phone Manuel Klein MD Unavailable [phone] Manuel Klein MD Primary Care Provider +-4 Manuel Klein MD Unavailable [phone] Source Comments In the event this information is protected by the Federal Confidentiality of Alcohol and Drug AbusePatient Records regulations: The Federal rules restrict any use of the information to criminally investigate or prosecute any alcohol or drug abuse patient.[facility] Reason for Visit * Reason Comments Results Encounter Details Date Type Department Care Team (Late st Contact Info) Description 02/21/2025 Telephone Cancer Appts [facility] [place] [address] Fara Lopez APRN.[facility] [address] [place] [address] Results Social History Tobacco Use Types Packs/Day [...] 4 09/24/2022 Data from: https://www.neighborhoodatlas.medicine.[facility]/. Last address used for calculation [address] 09/24/2022 Comments No Sex and Gender [...] AM EDT Pt aware of results via [employer]. Questions asked in [employer] encounter, response sent by Fara. RTC with Mason, 4 weeks Enma Hamm RN * Telephone Encounter - Sherrie Cortes - 02/21/2025 11:55 AM EDT Images from the original note were not included. documented in this encounter Plan of Treatment Upcoming Encounters Date Type Department Care Team (Latest Contact Info) Description 03/08/2025 2:00 PM EDT Infusion Center Hematology/Oncology [address] [place] [address] BENLYSTA - 03/21/2025 9:00 AM EDT Office Visit [facility] Laboratory [address] [place] [address] 4 week follow up IVIG - pt to see MASON for this appt per [facility] 03/21/2025 9:20 AM EDT Visit (SP) Office Hematology/Oncology [address] [facility] [place] [address] Jose Cho MD [address] [facility] [place] [address] 4 week follow up IVIG - pt to see MASON for this appt per [facility] 03/21/2025 9:40 AM EDT Infusion Center Hematology/Oncology [address] [place] [address] Gabbi, Chair [address] [place] [place] [address] 4 week follow up IVIG - pt to see MASON for this appt per [facility] 04/05/2025 2:00 PM EST Infusion Center Hematology/Oncology [address] [facility] [place] [address] BENLYSTA - 05/03/2025 2:00 PM [facility] Infusion Center Hematology/Oncology [address] [facility] [place] [address] BENLYSTA - documented as of this encounter Visit Diagnoses Not on filedocumented in this encounter Care Teams Submarine Cable Equipment Technician Relationship Specialty Start Date End Date Manuel Klein MD PCP - General Family Medicine 02/27/22 Manuel Klein MD Referring Family Medicine 02/12/22 Manuel Klein MD [address] [place] [address] Referring Family Medicine 07/06/24 documented as of this encounter
--- OUTSIDE RECORDS SUMMARY | 2025-02-27 14:15 | XMS_ITS | Encounter Summary ---
Author Organization [facility] Address [address] [place] [address] Care Team Providers Care Office Services Manager Name Role Phone Manuel Klein MD Unavailable [phone] Manuel Klein MD Primary Care Provider +-4 Manuel Klein MD Unavailable Source Comments In the event this information is protected by the Federal Confidentiality of Alcohol and Drug AbusePatient Records regulations: The Federal rules restrict any use of the information to criminally investigate or prosecute any alcohol or drug abuse patient.[facility] Encounter Details Date Type Department Care Team (Late st Contact Info) Description 02/23/2024 Patient Msg Rheumatology [address] [place], [place] [id number] Sandra Park MD [address] [place] [address] Appointment Request Social History Tobacco [...] Data from: https://www.neighborhoodatlas.medicine.[facility]/. Last address used for calculation [address] 09/24/2022 Comments No Sex and Gender [...] [facility] Center Hematology/Oncology [address] [place] [address] BENLYSTA - 03/21/2025 9:00 AM EDT Office Visit [facility] Laboratory [address] [place] [address] [place] [address] 4 week follow up IVIG - pt to see MASON for this appt per [facility] 03/21/2025 9:20 AM EDT Visit (SP) Office Hematology/Oncology [address] [place] [address] Jose Cho MD [address] [place] [address] 4 week follow up IVIG - pt to see MASON for this appt per [facility] 03/21/2025 9:40 AM EDT Infusion Center Hematology/Oncology [address] [place] [address] Gabbi, Chair [address] [place] [address] 4 week follow up IVIG - pt to see MASON for this appt per [facility] 04/05/2025 2:00 PM EST Infusion Center Hematology/Oncology [address] [facility] [place] [address] BENLYSTA - 05/03/2025 2:[address] [facility] Infusion Center Hematology/Oncology [address] [place] [address] BENLYSTA - documented as of this encounter Visit Diagnoses Not on filedocumented in this encounter Care Teams Office Services Manager Relationship Specialty Start Date End Date Manuel Klein MD PCP - General Family Medicine 02/27/22 Manuel Klein MD Referring Family Medicine 02/12/22 Manuel Klein MD [address] [place] [address] Referring Family Medicine 07/06/24 documented as of this encounter
--- OUTSIDE RECORDS SUMMARY | 2025-02-27 14:15 | XMS_ITS | Encounter Summary ---
Author Organization [facility] Address [id number] [address] [place] [address] Care Team Providers Care Postdoctoral Research Associate Name Role Phone Unavailable Primary Care Provider Unavailabl e Encounter Details Date Type Department Care Team (Late st Contact Info) Description 04/05/2024 Orders Only [facility] [address] [place] [address] Ref Prov, [place] [address] Social History Tobacco Use Types Packs/Day Years [...]
--- OUTSIDE RECORDS SUMMARY | 2025-02-27 14:15 | XMS_ITS | Encounter Summary ---
Author Organization [facility] Address [address] [place] [address] Care Team Providers Care Network Intern Name Role Phone Manuel Klein MD Unavailable [phone] Manuel Klein MD Primary Care Provider +-4 Manuel Klein MD Unavailable [phone] Source Comments In the event this information is protected by the Federal Confidentiality of Alcohol and Drug AbusePatient Records regulations: The Federal rules restrict any use of the information to criminally investigate or prosecute any alcohol or drug abuse patient.[facility] Encounter Details Date Type Department Care Team (Late st Contact Info) Description 02/23/2024 Patient Msg Rheumatology [address] [place], [place] [phone] Sandra Park MD [address] [place] [address] Appointment Request Social History Tobacco [...] 4 09/24/2022 Data from: https://www.neighborhoodatlas.medicine.[facility]/. Last address used for calculation [address] 09/24/2022 Comments No Sex and Gender [...] Contact Info) Description 03/08/2025 2:00 PM EDT [facility] [place] [facility] Hematology/Oncology [address] [facility] [address] [address] BENLYSTA - 03/21/2025 9:00 AM EDT Office Visit [facility] Laboratory [address] [place] [address] [place] [address] 4 week follow up IVIG - pt to see MASON for this appt per [facility] 03/21/2025 9:20 AM EDT Visit (SP) Office Hematology/Oncology [address] [facility] [address] [address] Jose Cho MD [address] [facility] [place] [address] 4 week follow up IVIG - pt to see MASON for this appt per [facility] 03/21/2025 9:40 AM EDT Infusion Center Hematology/Oncology [address] [facility] [place] [address] Gabbi, Chair 4 [address] [facility] [place] [address] 4 week follow up IVIG - pt to see MSAON for this appt per [facility] 04/05/2025 2:00 PM EST Infusion Center Hematology/Oncology [address] [facility] [place] [address] BENLYSTA - 05/03/2025 2:00 PM [facility] Infusion Center Hematology/Oncology [address] [facility] [place] [address] BENLYSTA - documented as of this encounter Visit Diagnoses Not on filedocumented in this encounter Care Teams Network Intern Relationship Specialty Start Date End Date Manuel Klein MD PCP - General Family Medicine 02/27/22 Manuel Klein MD Referring Family Medicine 02/12/22 Manuel Klein MD [address] [place] [address] Referring Family Medicine 07/06/24 documented as of this encounter
--- OUTSIDE RECORDS SUMMARY | 2025-02-27 14:15 | XMS_ITS | Encounter Summary ---
Author Organization [facility] Address [address] [place] [address] Care Team Providers Care Tester Vibrator Equipment Name Role Phone Manuel Klein MD Unavailable [phone] Manuel Klein MD Primary Care Provider +-4 Manuel Klein MD Unavailable [phone] Source Comments In the event this information is protected by the Federal Confidentiality of Alcohol and Drug AbusePatient Records regulations: The Federal rules restrict any use of the information to criminally investigate or prosecute any alcohol or drug abuse patient.[facility] Encounter Details Date Type Department Care Team (Late st Contact Info) Description 12/09/2023 Get Medical Advice Infectious Disease [address] [place] [address] Tiffany Head DO [address] [place] [address] Infection Social History Tobacco Use [...] 09/24/2022 Data from: https://www.neighborhoodatlas.medicine.[facility]/. Last address used for calculation [address] 09/24/2022 Comments No Sex and Gender [...] PM EDT [facility] Center Hematology/Oncology [facility] [place] [address] BENLYSTA - 03/21/2025 9:00 AM EDT Office Visit [facility] Laboratory [facility] [place] [address] 4 week follow up IVIG - pt to see MASON for this appt per [facility] 03/21/2025 9:20 AM EDT Visit (SP) Office Hematology/Oncology [address] [facility] [place] [address] Jose Cho MD [address] [facility] [place] [address] 4 week follow up IVIG - pt to see MASON for this appt per [facility] 03/21/2025 9:40 AM EDT Infusion Center Hematology/Oncology [address] [facility] [place] [address] Gabbi, Chair 4 [address] [facility] [place] [address] 4 week follow up IVIG - pt to see MASON for this appt per [facility] 04/05/2025 2:00 PM EST Infusion Center Hematology/Oncology [address] [facility] [place] [address] BENLYSTA - 05/03/2025 2:00 PM EST Infusion Center Hematology/Oncology [address] [facility] [place] [address] BENLYSTA - documented as of this encounter Visit Diagnoses Not on filedocumented in this encounter Care Teams Tester Vibrator Equipment Relationship Specialty Start Date End Date Manuel Klein MD PCP - General Family Medicine 02/27/22 Manuel Klein MD Referring Family Medicine 02/12/22 Manuel Klein MD [address] [place] [address] Referring Family Medicine 07/06/24 documented as of this encounter
--- OUTSIDE RECORDS SUMMARY | 2025-02-27 14:15 | XMS_ITS | Clinical Summary ---
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 02/04 Excessive [...] AM EDT Infusion Center Hematology/Oncolo gy [address] [facility] [place] [address] Frequent infections (Primary Dx); Hypogammaglobulinemia (HCC); Bilateral leg weakness; Discoid lupus erythematosus 02/21/2025 9:00 AM EDT Visit (SP) Office Hematology/Oncolo gy [address] [place], [place] [address] [place] [address] Fara Lopez APRN.LAST GREASER Frequent infections (Primary Dx); Hypogammaglobulinemia (HCC); Bilateral leg weakness; Discoid lupus erythematosus; Vitamin B12 deficiency; Shortness of breath; Other iron deficiency anemia; Malaise and fatigue 02/21/2025 Get Medical Advice Hematology/Oncolo [address] [place] [address] Provider, Ccf Blood work 02/21/2025 Telephone Cancer Appts [address] [place] [address] Fara Lopez APRN.LAST GREASER Results 02/12/2025 Telephone Hematology/Oncolo gy [address] [place] [address] [place] [address] Enma Hamm RN Lab Orders 02/08/2025 2:00 PM EDT Infusion Center Hematology/[place]col[facility] gy [address] [place] [address] [place] [address] Elevated sed rate (Primary Dx); Megaloblastic anemia due to vitamin B12 deficiency; Other systemic lupus erythematosus with other organ involvement (HCC) 02/06/2025 Orders Only Hematology/Oncolo gy [address] [place] [address] [place] [address] Jose Cho MD 01/24/2025 9:00 AM EDT Infusion Center Hematology/Oncolo gy [address] [place] [address] [place] [address] Frequent infections (Primary Dx); Hypogammaglobulinemia (HCC); Bilateral leg weakness; Discoid lupus erythematosus; Elevated sed rate; Megaloblastic anemia due to vitamin B12 deficiency 01/24/2025 Orders Only Hematology/Oncolo gy [address] [place] [address] [place] [address] Jose Cho MD Frequent infections (Primary Dx); Hypogammaglobulinemia (HCC); Bilateral leg weakness; Discoid lupus erythematosus 01/23/2025 Refill Rheumatology [address] [place] [address] Sandra Park MD Refill Request 01/22/2025 Travel 01/18/2025 Telephone Rheumatology [address] [place] [address] Sandra Park MD Results 01/11/2025 2:00 PM EDT Infusion Center Hematology/Oncolo gy [address] [place] [address] Other systemic lupus erythematosus with other organ involvement (HCC) (Primary Dx); Elevated LFTs; Anemia of chronic disease; Elevated sed rate; Elevated C-reactive protein (CRP); Vitamin D deficiency; Vitamin B12 deficiency; Screening-pulmonary TB 12/27/2024 9:00 AM EDT Infusion Center Hematology/Oncol[facility] gy [address] [place] [address] Frequent infections (Primary Dx); Hypogammaglobulinemia (HCC); Bilateral leg weakness; Discoid lupus erythematosus; Elevated sed rate; Megaloblastic anemia due to vitamin B12 deficiency 12/20/2024 Orders Only Hematology/Oncolo gy [address] [place] [address] Neda Hill PAJuliusC 12/19/2024 Orders Only Hematology/Oncolo gy [address] [place] [address] Neda Hill PA-C 12/19/2024 Orders Only Hematology/Oncolo gy [address] [place] [address] Rebekah Rojas APRN.LAST GREASER 12/14/2024 2:00 PM EDT Infusion Center Hematology/Oncolo gy [address] [place] [address] Other systemic lupus erythematosus with other organ involvement (HCC) (Primary Dx) 12/14/2024 Abstract Neurology [address] [place] [address] [facility] CMN 12/14/2024 Orders Only Rheumatology [address] [place] [address] Sandra Park MD 12/12/2024 Travel 11/30/2024 Results Follow-Up Hematology/Oncolo gy [address] [place] [address] [place] [address] Fara Lopez APRN.LAST GREASER Results 11/29/2024 9:30 AM EDT Infusion Center Hematology/Oncolo gy [address] [place] [address] [place] [address] Elevated sed rate (Primary Dx); Megaloblastic anemia due to vitamin B12 deficiency; Frequent infections; Hypogammaglobulinemia (HCC); Bilateral leg weakness; Discoid lupus erythematosus 11/29/2024 9:00 AM EDT Visit (SP) Office Hematology/Oncolo gy [address] [place] [address] [place] [address] Fara Lopez APRN.CNP Hypogammaglobulinemia (HCC) (Primary Dx); Vitamin B12 deficiency; Other iron deficiency anemia; Malaise and fatigue; Shortness of breath; Other specified disorders of breast; Pre-diabetes; Gastro-esophageal reflux disease without esophagitis 11/29/2024 Orders Only Hematology/Oncolo gy [address] [place] [address] [place] [address] Fara Lopez APRN.CNP Frequent infections; Hypogammaglobulinemia (HCC); Bilateral leg weakness; Discoid lupus erythematosus 11/29/2024 Travel from Last 3 Months Immunizations Immunization Administration Dates Next Due COVID-19 vaccine, age 12+ yr ([facility]) 02/23/2023 Family History Medical History [...] risk 4 09/24/2022 Data from: https://www.[email or web address].[email or web address]/. Last address used for calculation [address] 09/24/2022 Comments No Sex and [...] 03/08/2025 2:00 PM EDT Infusion Center Hematology/Oncology [facility] [place] [address] BENLYSTA - 03/21/2025 9:00 AM EDT Office Visit [facility] [address] [place] [address] 4 week follow up IVIG - pt to see MASON for this appt per Fara 03/21/2025 9:20 AM EDT Visit (SP) Office Hematology/Oncology [address] [place] [address] Jose Cho MD [address] [place] [address] 4 week follow up IVIG - pt to see MASON for this appt per Fara 03/21/2025 9:40 AM EDT Infusion Center Hematology/Oncology [facility] [place] [address] Gabbi, Chair [address] [place] [address] [place] [address] 4 week follow up IVIG - pt to see MASON for this appt per Fara 04/05/2025 2:00 PM [facility] Infusion Center Hematology/Oncology [address] [facility] [place] [address] BENLYSTA - 05/03/2025 2:00 PM [facility] Infusion Center Hematology/Oncology [address] [place] [address] BENLYSTA - Health Maintenance Due Date Last [...] - 1,245 pg/mL 02/21/2025 10:05 PM EDT [facility] Blood BLOOD SPECIMEN / Unknown Venipuncture / Unknown 02/21/2025 8:51 AM EDT 02/21/2025 8:51 AM EDT us Fara Lopez MENT[employer] HE[employer] ADVANCED PRACTICE NURSE.LAST GREASER LABORATORY Final Resul t [facility] [address] [facility] [address] [address], * (ABNORMAL) IRON AND TIBC (02/21/2025 8:51 AM EDT) Only the most recent of2 resultswithin the time period is included. Iron 156 41 - 186 ug/dL 02/21/2025 9:46 PM EDT [facility] TIBC 443(H) 232 - 386 ug/dL 02/21/2025 9:46 PM EDT [facility] Transferrin Saturation 35.2 15.0 - 57.0 % 02/21/2025 9:46 PM EDT [facility] Blood BLOOD SPECIMEN / Unknown Venipuncture / Unknown 02/21/2025 8:51 AM EDT 02/21/2025 8:51 AM EDT Fara Lopez MENTAL HEALTH ADVANCED PRACTICE NURSE.[facility] LABORATORY Final Resul t Performing Organization Address [facility] de Phone Number [facility] [address] [address], [place] * (ABNORMAL) IMMUNOGLOBULINS,IGG,IGA,IGM (02/21/2025 8:51 AM EDT) Only the most recent of2 resultswithin the time period is included. IgG 610(L) 700 - 1,600 mg/dL 02/21/2025 6:21 PM EDT [facility] IgA 184 70 - 400 mg/dL 02/21/2025 6:21 PM EDT [facility] IgM 454(H) 40 - 230 mg/dL 02/21/2025 6:21 PM EDT [facility] Blood BLOOD SPECIMEN / Unknown Venipuncture / Unknown 02/21/2025 8:51 AM EDT 02/21/2025 8:51 AM EDT Fara Lopez MENTAL HEALTH ADVANCED PRACTICE NURSE.[facility] LABORATORY Final Resul t Performing Organization Address [facility] Co de Phone Number [facility] [address] [place] [address], [place] * FOLATE, SERUM (02/21/2025 8:51 AM EDT) Only the most recent of2 resultswithin the time period is included. [facility] Folate >20.0 >4.7 ng/mL 02/21/2025 10:05 PM EDT [facility] Comment: A result of > 20 ng/mL is not necessarily indicative of a pathologic or treatable condition: it reflects a limitation of the test methodology. Assay reference range: 4.8 to 24.2 ng/mL. Suitable for detection of folate deficiency. Reference: Folate III (Folate III) [package insert V 1.0 Lao]. [place], [place], [place]: March 2015. Blood BLOOD SPECIMEN / Unknown Venipuncture / Unknown 02/21/2025 8:51 AM EDT 02/21/2025 8:51 AM EDT Fara Lopez M[facility] HEALTH ADVANCED PRACTICE NURSE.[facility] LABORATORY Final Resul t Performing Organization Address City/[facility]/ZIP Co de Phone Number [facility] [address] [place] [address], [place] * FERRITIN (02/21/2025 8:51 AM EDT) Only the most recent of2 resultswithin the time period is included. [facility] Ferritin 83.6 14.7 - 205.1 ng/mL 02/21/2025 10:05 PM EDT [facility] Blood BLOOD SPECIMEN / Unknown Venipuncture / Unknown 02/21/2025 8:51 AM EDT 02/21/2025 8:51 AM EDT Fara Lopez MENT[employer] HEALTH ADVANCED PRACTICE NURSE.[facility] LABORATORY Final Resul t [facility] [address] [place] [address], [place] * (ABNORMAL) COMPREHENSIVE METABOLIC PANEL (02/21/2025 8:51 AM EDT) Only the most recent of3 resultswithin the time period is included. [facility] Protein, Total 7.6 6.3 - 8.0 g/dL 02/21/2025 9:45 AM EDT [facility] Albumin 4.3 3.9 - 4.9 g/dL 02/21/2025 9:45 AM T [facility] Calcium, Total 10.2 8.5 - 10.2 mg/dL 02/21/2025 9:45 AM EDT [facility] Bilirubin, Total 0.3 0.2 - 1.3 mg/dL 02/21/2025 9:45 AM [facility] Alkaline Phosphatase 83 34 - 123 U/L 02/21/2025 9:45 AM T [facility] AST 20 13 - 35 U/L 02/21/2025 9:45 AM [facility] ALT 49(H) 7 - 38 U/L 02/21/2025 9:45 AM [facility] Glucose 248(H) 74 - 99 mg/dL 02/21/2025 9:45 AM [facility] Comment: The [place] Diabetes Association (ADA) provides guidance for cutoff [...] Standards of Medical Care in Diabetes 2016, [place] Diabetes Association. Diabetes Care. 2016.39(Suppl 1). BUN 16 7 - 21 mg/dL 02/21/2025 9:45 AM [facility] Creatinine 0.49(L) 0.58 - 0.96 mg/dL 02/21/2025 9:45 AM [facility] Sodium 138 136 - 144 mmol/L 02/21/2025 9:45 AM [facility] Potassium 4.1 3.7 - 5.1 mmol/L 02/21/2025 9:45 AM EDT [facility] Chloride 101 98 - 107 mmol/L 02/21/2025 9:45 AM EDT [facility] CO2 20(L) 22 - 30 mmol/L 02/21/2025 9:45 AM EDT [facility] Anion Gap 17(H) 8 - 15 mmol/L 02/21/2025 9:45 AM EDT [facility] Estimated Glomerular Filtration Rate 119 >=60 mL/min/1. 73m 02/21/2025 9:45 AM EDT [facility] Comment:Estimated Glomerular Filtration Rate (eGFR) [...] 02/21/2025 8:51 AM EDT us Fara Lopez APRN.[facility] LABORATORY Final Resul t [facility] [address] [place] [address] * (ABNORMAL) COMPLETE BLOOD COUNT AND DIFFERENTIAL (02/21/2025 8:51 AM EDT) Only the most recent of2 resultswithin the time period is included. WBC 13.16(H) 3.70 - 11.00 k/uL 02/21/2025 8:59 AM EDT [facility] RBC 4.77 3.90 - 5.20 m/uL 02/21/2025 8:59 AM EDT [facility] Hemoglobin 15.1 11.5 - 15.5 g/dL 02/21/2025 8:59 AM EDT [facility] Hematocrit 46.0 36.0 - 46.0 % 02/21/2025 8:59 AM EDT [facility] MCV 96.4 80.0 - 100.0 fL 02/21/2025 8:59 AM EDT [facility] MCH 31.7 26.0 - 34.0 pg 02/21/2025 8:59 AM EDT [facility] MCHC 32.8 30.5 - 36.0 g/dL 02/21/2025 8:59 AM EDT [facility] RDW-CV 14.3 11.5 - 15.0 % 02/21/2025 8:59 AM EDT [facility] Platelet Count 305 150 - 400 k/uL 02/21/2025 8:59 AM EDT [facility] MPV 9.9 9.0 - 12.7 fL 02/21/2025 8:59 AM EDT [facility] Neutrophils % 75.5 % 02/21/2025 8:59 AM EDT [facility] Abs Neut 9.94(H) 1.45 - 7.50 k/uL 02/21/2025 8:59 AM EDT [facility] Lymphocytes % 14.4 % 02/21/2025 8:59 AM EDT [facility] Abs Lymph 1.89 1.00 - 4.00 k/uL 02/21/2025 8:59 AM EDT [facility] Monocytes % 7.0 % 02/21/2025 8:59 AM EDT [facility] Abs [place] 0.92(H) <0.87 k/uL 02/21/2025 8:59 AM EDT [facility] Eosinophils % 0.8 % 02/21/2025 8:59 AM EDT [facility] Abs Eosin 0.11 <0.46 k/uL 02/21/2025 8:59 AM EDT [facility] Basophils % 0.7 % 02/21/2025 8:59 AM EDT [facility] Abs Baso 0.09 <0.11 k/uL 02/21/2025 8:59 AM EDT [facility] Immature Granulocytes % 1.6 % 02/21/2025 8:59 AM EDT [facility] Abs Immature Gran 0.21(H) <0.10 k/uL 02/21/2025 8:59 AM EDT [facility] NRBC 0.0 /100 WBC 02/21/2025 8:59 AM EDT [facility] Absolute nRBC <0.01 <0.01 k/uL 02/21/2025 8:59 AM EDT [facility] Diff Type Auto 02/21/2025 8:59 AM EDT [facility] Blood BLOOD SPECIMEN / Unknown Venipuncture / Unknown 02/21/2025 8:51 AM EDT 02/21/2025 8:51 AM EDT us Fara Lopez MENTAL HEALTH ADVANCED PRACTICE NURSE.LAST GREASER LABORATORY Final Resul t [facility] [address] [place] [address] * BLOOD TB SCREEN (01/11/2025 1:48 PM EDT) TB Nil 0.03 <=8.00 IU/mL 01/13/2025 9:22 PM EDT [facility] TB1 Ag minus Nil 0.01 <0.35 IU/mL 01/13/2025 9:22 PM EDT [facility] TB2 Ag minus Nil 0.01 <0.35 IU/mL 01/13/2025 9:22 PM EDT [facility] TB Result Negative 01/13/2025 9:22 PM EDT [facility] Mitogen minus Nil >9.97 >=0.50 IU/mL 01/13/2025 9:22 PM EDT [facility] TB Gamma Interpretation Infection with M. tuberculosis complex is unlikely. If latent tuberculosis infection is highly suspected, a negative result does not rule out the infection. Specimens from immunocompromised patients and those <5 years of age may show false negative results. In case of a contact investigation, please repeat 8-12 weeks after a known exposure. 01/13/2025 9:22 PM EDT [facility] Blood BLOOD SPECIMEN / Unknown Venipuncture / Unknown 01/11/2025 1:48 PM EDT 01/11/2025 2:06 PM EDT us Sandra Park MD LABORATORY Final Result Performing Organization Address City/[facility]/ZIP Co de Phone Number [facility] [address] [place] [address], [place] * VITAMIN D 25 HYDROXY (01/11/2025 1:48 PM EDT) Vitamin D 25 Hydroxy 32.2 31.0 - 80.0 ng/mL 01/12/2025 1:27 PM EDT [facility] Blood BLOOD SPECIMEN / Unknown Venipuncture / Unknown 01/11/2025 1:48 PM EDT 01/11/2025 2:06 PM EDT us Sandra Park MD LABORATORY Final Result Performing Organization Address City/[facility] Co de Phone Number [facility] [address] [place] [id number], [place] * (ABNORMAL) SEDIMENTATION RATE, WESTERGREN (01/11/2025 1:48 PM EDT) Sed Rate, Westergren 34(H) 0 - 20 mm/hr 01/12/2025 1:02 AM EDT [facility] Blood BLOOD SPECIMEN / Unknown Venipuncture / Unknown 01/11/2025 1:48 PM EDT 01/11/2025 2:06 PM EDT us Sandra Park MD LABORATORY Final Result Performing Organization Address City/[facility]/ZIP Co de Phone Number [facility] [address] [place] [id number], [place] * HEPATITIS B SURFACE ANTIGEN (01/11/2025 1:48 PM EDT) HBsAg Negative Negative 01/12/2025 11:45 AM EDT [facility] Blood BLOOD SPECIMEN / Unknown Venipuncture / Unknown 01/11/2025 1:48 PM EDT 01/11/2025 2:06 PM EDT Sandra Park MD LABORATORY Final Result Performing Organization Address [facility]/ZIP Co de Phone Number [facility] [address] [place] [phone], [place] * HEPATITIS B SURFACE ANTIBODY (01/11/2025 1:48 PM EDT) Hep B Surface Ab, Qual Positive 01/12/2025 11:44 AM EDT [facility] Comment:Consistent with sero logical evidence of immunity to Hepatitis B Virus. Hep B Surface Ab Quant 177.77 mIU/mL 01/12/2025 11:44 AM EDT [facility] Comment: <8 mIU/mL: No [...] MD LABORATORY Final Result Performing Organization Address City/[facility]/ZIP Co de Phone Number [facility] [address] [place] [phone], [place] * HEPATITIS B CORE ANTIBODY TOTAL (01/11/2025 1:48 PM EDT) Hepatitis B Core Ab, Total Negative Negative 01/12/2025 11:47 AM EDT [facility] Comment:No evidence of curre nt or past infection with Hepatitis B virus. Should recent infection be suspected, repeat testing may be considered 3-4 weeks after this draw. Blood BLOOD SPECIMEN / Unknown Venipuncture / Unknown 01/11/2025 1:48 PM EDT 01/11/2025 2:06 PM EDT us Sandra Park MD LABORATORY Final Result [facility] [address] [facility] [address] [place] [address], * (ABNORMAL) COMPLETE BLOOD COUNT (01/11/2025 1:48 PM EDT) WBC 12.61(H) 3.70 - 11.00 k/uL 01/11/2025 2:10 PM EDT [facility] RBC 4.29 3.90 - 5.20 m/uL 01/11/2025 2:10 PM EDT [facility] Hemoglobin 13.8 11.5 - 15.5 g/dL 01/11/2025 2:10 PM EDT [facility] Hematocrit 41.5 36.0 - 46.0 % 01/11/2025 2:10 PM EDT [facility] MCV 96.7 80.0 - 100.0 fL 01/11/2025 2:10 PM EDT [facility] MCH 32.2 26.0 - 34.0 pg 01/11/2025 2:10 PM EDT [facility] MCHC 33.3 30.5 - 36.0 g/dL 01/11/2025 2:10 PM EDT [facility] RDW-CV 14.5 11.5 - 15.0 % 01/11/2025 2:10 PM EDT [facility] Platelet Count 265 150 - 400 k/uL 01/11/2025 2:10 PM EDT [facility] MPV 10.6 9.0 - 12.7 fL 01/11/2025 2:10 PM EDT [facility] Absolute nRBC <0.01 <0.01 k/uL 01/11/2025 2:10 PM EDT [facility] Blood BLOOD SPECIMEN / Unknown Venipuncture / Unknown 01/11/2025 1:48 PM EDT 01/11/2025 2:06 PM EDT us Sandra Park MD LABORATORY Final Result [facility] [address] [place] [address] * C-REACTIVE PROTEIN (01/11/2025 1:48 PM EDT) [facility] CRP <0.3 <0.9 mg/dL 01/12/2025 3:28 AM EDT [facility] Blood BLOOD SPECIMEN / Unknown Venipuncture / Unknown 01/11/2025 1:48 PM EDT 01/11/2025 2:06 PM EDT us Sandra Park MD LABORATORY Final Result Performing Organization Address City/[facility]/ZIP Co de Phone Number [facility] [address] [place] [address], * HEPATITIS C ANTIBODY IA WITH CONFIRMATION (01/11/2025 1:48 PM EDT) Pathologist [facility] Hep C Antibody IA Negative Negative 01/12/2025 11:34 AM EDT [facility] Comment:The result suggests no evidence of infection with Hepatitis C virus. Should recent infection be suspected, repeat testing may be considered 4-6 weeks after this draw. Blood BLOOD SPECIMEN / Unknown Venipuncture / Unknown 01/11/2025 1:48 PM EDT 01/11/2025 2:06 PM EDT us Sandra Park MD LABORATORY Final Result [facility] [address] [facility] [place] [phone], [place] from Last 3 Months Insurance Member Subscriber Plan / Payer (Ef fective 2022-Present) Name:Ariadna Paniagua Relation to Subscriber:Self Name:Ariadna Paniagua Payer ID:[id number] (NAIC) Group ID:[id number] Type:Medicaid Address: [place] [id number] Care Teams Medical Driver Relationship Specialty Start Date End Date Manuel Klein MD PCP - General Family Medicine 02/27/22 Manuel Klein MD Referring Family Medicine 02/12/22 Manuel Klein MD [address] [place] [id number] Referring Family Medicine 07/06/24
--- OUTSIDE RECORDS SUMMARY | 2025-02-27 14:15 | XMS_ITS | Encounter Summary ---
Author Organization [facility] Address [address] [place] [address] Care Team Providers Care Imcu Nurse Name Role Phone Manuel Klein MD Unavailable [phone] Manuel Klein MD Primary Care Provider +-4 Manuel Klein MD Unavailable [phone] Source Comments In the event this information is protected by the Federal Confidentiality of Alcohol and Drug AbusePatient Records regulations: The Federal rules restrict any use of the information to criminally investigate or prosecute any alcohol or drug abuse patient.[facility] Encounter Details Date Type Department Care Team (Late st Contact Info) Description 01/26/2024 [place] [address] Provider, Ccf Important changes to Wellness RX [...] is lower risk 4 09/24/2022 Data from: https://www.neighborhoodatlas.[facility]/. Last address used for calculation [address] 09/24/2022 Comments No Sex and Gender [...] [facility] Center Hematology/Oncology [address] [place] [address] BENLYSTA - 03/21/2025 9:00 AM EDT Office Visit [facility] [place] [address] 4 week follow up IVIG - pt to see MASON for this appt per Fara 03/21/2025 9:20 AM EDT Visit (SP) Office Hematology/Oncology [facility] [place] [address] Jose Cho MD [address] [place] [address] 4 week follow up IVIG - pt to see MASON for this appt per Fara 03/21/2025 9:40 AM EDT Infusion Center Hematology/Oncology [address] [place] [address] Gabbi, Chair [address] [place] [address] 4 week follow up IVIG - pt to see MASON for this appt per Fara 04/05/2025 2:00 PM EST Infusion Center Hematology/Oncology [address] [place] [address] BENLYSTA - 05/03/2025 2:00 PM [facility] Infusion Center Hematology/Oncology [address] [place] [address] BENLYSTA - documented as of this encounter Visit Diagnoses Not on filedocumented in this encounter Care Teams Imcu Nurse Relationship Specialty Start Date End Date Manuel Klein MD PCP - General Family Medicine 02/27/22 Manuel Klein MD Referring Family Medicine 02/12/22 Manuel Klein MD [address] [place] [address] Referring Family Medicine 07/06/24 documented as of this encounter
--- OUTSIDE RECORDS SUMMARY | 2025-02-27 14:15 | XMS_ITS | Clinical Summary ---
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
--- OUTSIDE RECORDS SUMMARY | 2025-02-27 14:15 | XMS_ITS | Clinical Summary ---
Author Organization [facility] Address [address], [address] [place] [address] Care Team Providers Care Glazier Helper Name Role Phone Gay De La Torre APRN - PUBLIC WORKS MANAGER Primary Care Provide r Allergies Active Allergy [...] 8:32 AM 10/08/2020 2:43 AM Care Teams Glazier Helper Relationship Specialty Start Date End Date Gay De La Torre, MAURILIO - PUBLIC WORKS MANAGER [address] [place] [address] PCP - General 06/03/21
--- OUTSIDE RECORDS SUMMARY | 2025-02-27 14:15 | XMS_ITS | Encounter Summary ---
Author Organization [facility] Address [facility] [place] [address] Care Team Providers Care Conventional Underwriter Name Role Phone Manuel Klein MD Unavailable [phone] Manuel Klein MD Primary Care Provider +-4 Manuel Klein MD Unavailable [phone] Source Comments In the event this information is protected by the Federal Confidentiality of Alcohol and Drug AbusePatient Records regulations: The Federal rules restrict any use of the information to criminally investigate or prosecute any alcohol or drug abuse patient.[facility] Encounter Details Date Type Department Care Team (Late st Contact Info) Description 10/29/2022 Patient Msg Integrated Medicine [address] [place] [address] Christie Phan MD [address] [address] Trulicity Social History Tobacco Use [...] risk 4 09/24/2022 Data from: https://www.neighborhoodatlas.medicine.[facility]/. Last address used for calculation [address] 09/24/2022 Comments No Sex and Gender [...] Assessment Author No 12/25/2014 11:14 AM EDT Chihci De Jesus * Do you have serious [...] [facility] Hematology/Oncology [address] [place] [address] BENLYSTA - 03/21/2025 9:00 AM EDT Office Visit [facility] Laboratory [place] [address] 4 week follow up IVIG - pt to see MASON for this appt per [facility] 03/21/2025 9:20 AM EDT Visit (SP) Office Hematology/Oncology [address] [place] [address] Jose Cho MD [address] [place] [address] 4 week follow up IVIG - pt to see MASON for this appt per [facility] 03/21/2025 9:40 AM EDT Infusion Center Hematology/Oncology [address] [place] [address] Gabbi, Chair [address] [place] [address] 4 week follow up IVIG - pt to see MASON for this appt per [facility] 04/05/2025 2:00 PM EST Infusion Center Hematology/Oncology [address] [place] [address] BENLYSTA - 05/03/2025 2:00 PM EST Infusion Center Hematology/Oncology [address] [place] [address] BENLYSTA - documented as of this encounter Visit Diagnoses Not on filedocumented in this encounter Care Teams Conventional Underwriter Relationship Specialty Start Date End Date Manuel Klein MD PCP - General Family Medicine 02/27/22 Manuel Klein MD Referring Family Medicine 02/12/22 Manuel Klein MD [address] [facility] [place] [address] Referring Family Medicine 07/06/24 documented as of this encounter
--- OUTSIDE RECORDS SUMMARY | 2025-02-27 14:15 | XMS_ITS | Encounter Summary ---
Author Organization [facility] Address [address] [place] [address] Care Team Providers Care Transfer Station Attendant Name Role Phone Manuel Klein MD Unavailable [phone] Manuel Klein MD Primary Care Provider +-4 Manuel Klein MD Unavailable [phone] Source Comments In the event this information is protected by the Federal Confidentiality of Alcohol and Drug AbusePatient Records regulations: The Federal rules restrict any use of the information to criminally investigate or prosecute any alcohol or drug abuse patient.[facility] Encounter Details Date Type Department Care Team (Late st Contact Info) Description 10/16/2022 Get Medical Advice Integrative and Lifestyle Medicine [address] [place] [address] Christie Phan MD [address] [address] Trulicity Social History Tobacco Use [...] is lower risk 4 09/24/2022 Data from: https://www.neighborhoodatlas.medicine.[facility]/. Last address used for calculation [address] 09/24/2022 Comments No Sex and Gender [...] Contact Info) Description 03/08/2025 2:[address] [facility] Center Hematology/Oncology [facility] [place] [address] BENLYSTA - 03/21/2025 9:00 AM EDT Office Visit [facility] Laboratory [facility] [place] [address] 4 week follow up IVIG - pt to see MASON for this appt per [facility] 03/21/2025 9:20 AM EDT Visit (SP) Office Hematology/Oncology [address] [place] [address] Jose Cho MD [address] [place] [address] 4 week follow up IVIG - pt to see MASON for this appt per [facility] 03/21/2025 9:40 AM EDT Infusion Center Hematology/Oncology [address] [place] [address] Gabbi, Chair [address] [place] [address] 4 week follow up IVIG - pt to see MASON for this appt per [facility] 04/05/2025 2:00 PM EST Infusion Center Hematology/Oncology [address] [place] [address] BENLYSTA - 05/03/2025 2:00 PM EST Infusion Center Hematology/Oncology [address] [place] [address] BENLYSTA - documented as of this encounter Visit Diagnoses Not on filedocumented in this encounter Care Teams Transfer Station Attendant Relationship Specialty Start Date End Date Manuel Klein MD PCP - General Family Medicine 02/27/22 Manuel Klein MD Referring Family Medicine 02/12/22 Manuel Klein MD [address] [place] [address] Referring Family Medicine 07/06/24 documented as of this encounter
--- OUTSIDE RECORDS SUMMARY | 2025-02-27 14:15 | XMS_ITS | Encounter Summary ---
Author Organization [facility] Address [address] [place] [address] Care Team Providers Care Service Order Dispatcher Name Role Phone Manuel Klein MD Unavailable [phone] Manuel Klein MD Primary Care Provider +-4 Manuel Klein MD Unavailable [phone] Source Comments In the event this information is protected by the Federal Confidentiality of Alcohol and Drug AbusePatient Records regulations: The Federal rules restrict any use of the information to criminally investigate or prosecute any alcohol or drug abuse patient.[facility] Encounter Details Date Type Department Care Team (Late st Contact Info) Description 02/21/2025 Get Medical Advice Hematology/Oncology [address] [place] [address] [place] [address] Provider, Ccf Blood work Social History Tobacco [...] 4 09/24/2022 Data from: https://www.neighborhoodatlas.medicine.[facility]/. Last address used for calculation [address] 09/24/2022 Comments No Sex and Gender [...] PM EDT [facility] Hematology/Oncology [address] [place] [address] BENLYSTA - 03/21/2025 9:00 AM EDT Office Visit [facility] [address] [place] [address] 4 week follow up IVIG - pt to see MASON for this appt per Fara 03/21/2025 9:20 AM EDT Visit (SP) Office Hematology/Oncology [address] [place] [address] Jose Cho MD [address] [place] [address] 4 week follow up IVIG - pt to see MASON for this appt per Fara 03/21/2025 9:40 AM EDT Infusion Center Hematology/Oncology [address] [place] [address] Gabbi, Chair [address] [place] [address] 4 week follow up IVIG - pt to see MASON for this appt per [facility] 04/05/2025 2:00 PM EST Infusion Center Hematology/Oncology [address] [place] [address] [place] [address] BENLYSTA - 05/03/2025 2:00 PM [facility] Infusion Center Hematology/Oncology [address] [place] [address] [place] [address] BENLYSTA - documented as of this encounter Visit Diagnoses Not on filedocumented in this encounter Care Teams Service Order Dispatcher Relationship Specialty Start Date End Date Manuel Klein MD PCP - General Family Medicine 02/27/22 Manuel Klein MD Referring Family Medicine 02/12/22 Manuel Klein MD [address] [place] [address] Referring Family Medicine 07/06/24 documented as of this encounter
--- OUTSIDE RECORDS SUMMARY | 2025-02-27 14:15 | XMS_ITS | Encounter Summary ---
Author Organization [facility] Address [address] [place] [address] Care Team Providers Care Railroad Car Painter Name Role Phone Manuel Klein MD Unavailable [phone] Manuel Klein MD Primary Care Provider +-4 Manuel Klein MD Unavailable [phone] Source Comments In the event this information is protected by the Federal Confidentiality of Alcohol and Drug AbusePatient Records regulations: The Federal rules restrict any use of the information to criminally investigate or prosecute any alcohol or drug abuse patient.[facility] Encounter Details Date Type Department Care Team (Late st Contact Info) Description 02/18/2024 Get Medical Advice Rheumatology [address] [place], [place] [id number] Sandra Park MD [address] [place] [address] Referral Social History Tobacco Use [...] risk 4 09/24/2022 Data from: https://www.neighborhoodatlas.medicine.[facility]/. Last address used for calculation [address] 09/24/2022 Comments No Sex and Gender [...] 2:00 PM EDT Infusion Center Hematology/Oncology [address] [facility] [place] [address] BENLYSTA - 03/21/2025 9:00 AM EDT Office Visit [facility] Laboratory [address] [place] [address] 4 week follow up IVIG - pt to see MASON for this appt per Fara 03/21/2025 9:20 AM EDT Visit (SP) Office Hematology/Oncology [address] [place] [address] Jose Cho MD [address] [place] [address] 4 week follow up IVIG - pt to see MASON for this appt per [facility] 03/21/2025 9:40 AM EDT Infusion Center Hematology/Oncology [address] [facility] [place] [address] Gabbi, Chair [address] [place] [address] 4 week follow up IVIG - pt to see MASON for this appt per [facility] 04/05/2025 2:00 PM EST Infusion Center Hematology/Oncology [address] [place] [address] BENLYSTA - 05/03/2025 2:00 PM EST Infusion Center Hematology/Oncology [address] [facility] [place] [address] BENLYSTA - documented as of this encounter Visit Diagnoses Diagnosis 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
--- OUTSIDE RECORDS SUMMARY | 2025-02-27 14:15 | XMS_ITS | Encounter Summary ---
Author Organization [facility] Address [address] [place] [address] Care Team Providers Care Ethylbenzene Converter Operator Name Role Phone Manuel Klein MD Unavailable [phone] Manuel Klein MD Primary Care Provider +-4 Manuel Klein MD Unavailable [phone] Source Comments In the event this information is protected by the Federal Confidentiality of Alcohol and Drug AbusePatient Records regulations: The Federal rules restrict any use of the information to criminally investigate or prosecute any alcohol or drug abuse patient.[facility] Reason for Visit * Reason Onset Date Comments Refill Request 01/23/2025 Encounter Details Date Type Department Care Team (Late st Contact Info) Description 01/23/2025 Refill Rheumatology [address] [place], [place] [id number] Sandra Park MD [address] [place] [address] Refill Request Social History Tobacco [...] risk 4 09/24/2022 Data from: https://www.neighborhoodatlas.medicine.[facility]/. Last address used for calculation [address] [...] PM EDT [facility] Hematology/Oncology [address] [place] [address] BENLYSTA - 03/21/2025 9:00 AM EDT Office Visit [facility] [address] [place] [address] 4 week follow up IVIG - pt to see MASON for this appt per [facility] 03/21/2025 9:20 AM EDT Visit (SP) Office Hematology/Oncology [address] [place] [address] Jose Cho MD [address] [facility] [place] [address] 4 week follow up IVIG - pt to see MASON for this appt per [facility] 03/21/2025 9:40 AM EDT Infusion Center Hematology/Oncology [address] [facility] [place] [address] Gabbi, Chair 4 [address] [facility] [place] [address] 4 week follow up IVIG - pt to see MASON for this appt per [facility] 04/05/2025 2:00 PM EST Infusion Center Hematology/Oncology [address] [place] [address] BENLYSTA - 05/03/2025 2:[address] [facility] Infusion Center Hematology/Oncology [address] [facility] [place] [address] BENLYSTA - documented as of this encounter Visit Diagnoses Diagnosis CHRISTIAN positive Other and unspecified nonspecific immunological findings Other systemic lupus erythematosus with other organ involvement (HCC) documented in this encounter Care Teams Ethylbenzene Converter Operator Relationship Specialty Start Date End Date Manuel Klein MD PCP - General Family Medicine 02/27/22 Manuel Klein MD Referring Family Medicine 02/12/22 Manuel Klein MD [address] [place] [address] Referring Family Medicine 07/06/24 documented as of this encounter
--- OUTSIDE RECORDS SUMMARY | 2025-02-27 14:15 | XMS_ITS | Clinical Summary ---
Author Organization [facility] Address [id number] [address] [place] [address] Care Team Providers Care Tree Planter Name Role Phone Unavailable Primary Care Provider [...]
--- OUTSIDE RECORDS SUMMARY | 2025-02-27 14:16 | XMS_ITS | Encounter Summary ---
Author Organization [facility] Address [address] [place] [address] Care Team Providers Care Civil Preparedness Officer Name Role Phone Aime Davidson MD, Lui Nunez Primary Care Provid er Gay De La Torre(Historical) CATTLE RANCHER.VOIP ENGINEER Primary Care Provider Unavailable Manuel Klein MD Unavailable [phone] Manuel Klein MD Primary Care Provider [phone] Manuel Klein MD Unavailable [phone] Source Comments In the event this information is protected by the Federal Confidentiality of Alcohol and Drug AbusePatient Records regulations: The Federal rules restrict any use of the information to criminally investigate or prosecute any alcohol or drug abuse patient.[facility] Encounter Details Date Type Department Care Team (Late st Contact Info) Description 12/25/2014 Get Medical Advice Internal Medicine [facility] [place] [address] Lui Salomon Jr., MD [address] [address] Test Result Question Social History [...] Assessment Author Yes 12/25/2014 11:14 AM EDT Chcihi De Jesus * Do you have difficulty [...] [facility] [address] [place] [address] BENLYSTA - 03/21/2025 9:00 AM EDT Office Visit [facility] [place] [address] 4 week follow up IVIG - pt to see MASON for this appt per [facility] 03/21/2025 9:20 AM EDT Visit (SP) Office Hematology/Oncology [facility] [place] [address] Jose Cho MD [address] [place] [address] 4 week follow up IVIG - pt to see MASON for this appt per [facility] 03/21/2025 9:40 AM EDT Infusion Center Hematology/Oncology [address] [place] [address] Gabbi, Chair [address] [place] [address] 4 week follow up IVIG - pt to see MASON for this appt per [facility] 04/05/2025 2:00 PM EST Infusion Center Hematology/Oncology [address] [facility] [place] [address] BENLYSTA - 05/03/2025 2:00 PM EST Infusion Center Hematology/Oncology [address] [place] [address] BENLYSTA - documented as of this encounter Visit Diagnoses Not on filedocumented in this encounter Care Teams Civil Preparedness Officer Relationship Specialty Start Date End Date Lui Salomon Jr., MD PCP - General Internal Medicine 05/31/14 07/08/20 Gay De La Torre(Historical), CATTLE RANCHER.VOIP ENGINEER PCP - General Family Medicine 10/24/21 02/26/22 Manuel Klein MD PCP - General Family Medicine 02/27/22 Manuel Klein MD Referring Family Medicine 02/12/22 Manuel Klien MD [address] [place] [address] Referring Family Medicine 07/06/24 documented as of this encounter
--- OUTSIDE RECORDS SUMMARY | 2025-02-27 14:16 | XMS_ITS | Encounter Summary ---
Author Organization [facility] Address [address] [facility] [place] [address] Care Team Providers Care Supervisor Water Softener Service Name Role Phone House, Charles Culver MD Primary Care Provider [phone] Gay De La Torre MD Unavailable [phone] Encounter Details Date Type Department Care Team (Late Contact Info) Description 04/07/2024 Clinisync Result Encounter [facility] External Department Unsolicited Luan Valdivia, DO [address] [facility] L[place]am [place], [place] [id number] Social History Tobacco Use Types Packs/Day Years [...] [facility] [address] [facility] [address] [place] [address] Terence Blum MD [address] [facility] 150 [place] [address] 03/19/2025 10:20 AM EDT Office Visit [facility] [address] [place] [address] Mary Grace Mejias MD [address] [facility] 130 [place] [address] 07/25/2025 11:00 AM EST Office Visit [facility] [address] [place] [address] Cynthia English MD [address] [place] [address] documented as of this encounter Procedures Procedure Name Priority Date/Time Associated Diagnosis Comments US BREAST BI LIMITED 04/07/2024 8:40 AM EST documented in this encounter Results * US BREAST BI LIMITED (04/07/2024 8:40 AM EST) Anatomical Region Laterality Modality Other 04/07/2024 8:40 AM EST Narrative 04/07/2024 8:41 AM EST [address] [address] Ultrasound Report Signed Patient: JONES PANIAGUA MR#: [id number] : 1980 Acct:[id number] Age/Sex: 43 / F ADM Date: 04/06/24 Loc: US Attending Dr: Luan Valdivia D.O. Ordering Physician: Luan Valdivia D.O. Date of Service: 04/06/24 Procedure(s): US breast BI limited Accession Number(s): [id number] cc: GAY DE LA TORRE ; Luan Valdivia D.O. Patient Name: JONES PANIAGUA MR#: [id number] : 1980 Exam Date: 04/06/2024 Ordering Doctor: [...] at age 56. LOCATION: The [facility] BREAST COMPOSITION: There are scattered areas [...] Signed By: 04/07/24 0841 DD/ 0840 TD/TT: Intelligence Intern: Procedure Note Radiology, Radiologist, MD - 04/07/2024 [place] [address] Ultrasound Report Signed Patient: JONES PANIAGUA BMR#: [id number] : 1980Acct:[id number] Age/Sex: 43 / FADM Date: 04/06/24 Loc: US Attending Dr: Luan Valdivia D.O. Ordering Physician: Luan Valdivia D.O. Date of Service: 04/06/24 Procedure(s): US breast BI limited Accession Number(s): [id number] cc: GAY DE LA TORRE ; Luan Valdivia D.O. Patient Name: JONES PANIAGUA MR#: [id number] : 1980 Exam Date: 04/06/2024 Ordering Doctor: DR Luan Valdivia . RADIOLOGY REPORT PROCEDURE: MM TOMOSYNTHESIS DIAGNOSTIC BI, 04/06/2024, 15:20 US BREAST BI LIMITED, 04/06/2024, 15:37 COMPARISON: MM TOMOSYNTHESIS SCREENING BI, 09/23/2023. MG MAMM [id number] MARK CAD, 09/01/2022. MG MAMM SCREEN 3D [...] at age 56. LOCATION: The [facility] BREAST COMPOSITION: There are scattered areas [...] Vito Yusuf M.D. Signed By:04/07/2441 DD/ TD/TT: Intelligence Intern: Luan Valdivia DO [facility] Final Result documented in this encounter Visit Diagnoses Not on filedocumented in this encounter Care Teams Supervisor Water Softener Service Relationship Specialty Start Date End Date Charles Nicole MD PCP - General Family Medicine 02/09/24 07/17/24 Gay De La Torre MD [address] [place] [address] Referring Physician Family Medicine 07/18/24 documented as of this encounter
--- OUTSIDE RECORDS SUMMARY | 2025-02-27 14:16 | XMS_ITS | Clinical Summary ---
Author Organization [facility] Address [address] [place] [address] Care Team Providers Care Diagnostic Cardiac Sonographer Name Role Phone Gay De La Torre CNP Primary Care Provider [phone] Social History Tobacco Use Types Packs/Day Years [...] age to complete this topic Care Teams Diagnostic Cardiac Sonographer Relationship Specialty Start Date End Date Gay De La Torre CNP [address] [place] [address] PCP - General Nurse Practitioner - Family 03/27/24
--- OUTSIDE RECORDS SUMMARY | 2025-02-27 14:16 | XMS_ITS | Encounter Summary ---
Author Organization [facility] Address [facility] [place] [address] Care Team Providers Care Maintenance Mechanic Helper Name Role Phone Manuel Klein MD Unavailable [phone] Manuel Klein MD Primary Care Provider +[phone] Manuel Klein MD Unavailable Source Comments In the event this information is protected by the Federal Confidentiality of Alcohol and Drug AbusePatient Records regulations: The Federal rules restrict any use of the information to criminally investigate or prosecute any alcohol or drug abuse patient.[facility] Encounter Details Date Type Department Care Team (Late st Contact Info) Description 02/11/2023 Patient [facility] HB-3 [address] [place] [address] Provider, Ccf Huseyin Approved - Action Needed! [...] is lower risk 4 09/24/2022 Data from: https://www.neighborhoodatlas.medicine.[facility].edu/. Last address used for calculation [address] 09/24/2022 Comments No Sex and Gender [...] Info) Description 03/08/2025 2:00 PM EDT [facility] Center Hematology/Oncology [address] [place] [address] BENLYSTA - 03/21/2025 9:00 AM EDT Office Visit [facility] [address] [place] [address] 4 week follow up IVIG - pt to see MASON for this appt per [facility]ara 03/21/2025 9:20 AM EDT Visit (SP) Office Hematology/Oncology [address] [place] [address] Jose Cho MD [address] [place] [address] 4 week follow up IVIG - pt to see MASON for this appt per [facility] 03/21/2025 9:40 AM EDT Infusion Center Hematology/Oncology [address] [place] [address] Gabbi, Chair 4 [address] [place] [address] 4 week follow up IVIG - pt to see MASON for this appt per [facility] 04/05/2025 2:00 PM EST Infusion Center Hematology/Oncology [address] [place] [address] [place] [address] BENLYSTA - 05/03/2025 2:00 PM [facility] Infusion Center Hematology/Oncology [address] [place] [address] [place] [address] BENLYSTA - documented as of this encounter Visit Diagnoses Not on filedocumented in this encounter Care Teams Maintenance Mechanic Helper Relationship Specialty Start Date End Date Manuel Klein MD PCP - General Family Medicine 02/27/22 Manuel Klein MD Referring Family Medicine 02/12/22 Manuel Klein MD [address] [place] [address] Referring Family Medicine 07/06/24 documented as of this encounter
--- OUTSIDE RECORDS SUMMARY | 2025-02-27 14:16 | XMS_ITS | Encounter Summary ---
Author Organization [facility] Address [facility] [place] [address] Care Team Providers Care Bus Aide Name Role Phone Manuel Klein MD Unavailable [phone] Manuel Klein MD Primary Care Provider +-4 Manuel Klein MD Unavailable [phone] Source Comments In the event this information is protected by the Federal Confidentiality of Alcohol and Drug AbusePatient Records regulations: The Federal rules restrict any use of the information to criminally investigate or prosecute any alcohol or drug abuse patient.[facility] Encounter Details Date Type Department Care Team (Late st Contact Info) Description 03/04/2023 Patient [facility] HB-3 [address] [place] [address] Provider, Ccf Benlysta Injection Video Social History [...] risk 4 09/24/2022 Data from: https://www.neighborhoodatlas.medicine.[facility].edu/. Last address used for calculation [address] 09/24/2022 Comments No Sex and Gender [...] [facility] Hematology/Oncology [address] [place] [address] BENLYSTA - 03/21/2025 9:00 AM EDT Office Visit [facility] [address] [place] [address] 4 week follow up IVIG - pt to see MAOSN for this appt per Fara 03/21/2025 9:20 AM EDT Visit (SP) Office Hematology/Oncology [address] [place] [address] Jose Cho MD [address] [facility] [place] [address] 4 week follow up IVIG - pt to see MASON for this appt per [facility] 03/21/2025 9:40 AM EDT Infusion Center Hematology/Oncology [address] [facility] [place] [address] Gabbi, Chair 4 [address] [facility] [place] [address] 4 week follow up IVIG - pt to see MASON for this appt per [facility] 04/05/2025 2:00 PM EST Infusion Center Hematology/Oncology [address] [place] [address] [place] [address] BENLYSTA - 05/03/2025 2:00 PM [facility] Infusion Center Hematology/Oncology [address] [place] [address] [place] [address] BENLYSTA - documented as of this encounter Visit Diagnoses Not on filedocumented in this encounter Care Teams Bus Aide Relationship Specialty Start Date End Date Manuel Klein MD PCP - General Family Medicine 02/27/22 Manuel Klein MD Referring Family Medicine 02/12/22 Manuel Klein MD [address] [place] [address] Referring Family Medicine 07/06/24 documented as of this encounter
--- OUTSIDE RECORDS SUMMARY | 2025-02-27 14:16 | XMS_ITS | Encounter Summary ---
Author Organization [facility] Address [facility]0 [place] [address] Care Team Providers Care Fabrication Technician Name Role Phone Manuel Klein MD Unavailable [phone] Manuel Klein MD Primary Care Provider +-4 Manuel Klein MD Unavailable [phone] Source Comments In the event this information is protected by the Federal Confidentiality of Alcohol and Drug AbusePatient Records regulations: The Federal rules restrict any use of the information to criminally investigate or prosecute any alcohol or drug abuse patient.[facility] Encounter Details Date Type Department Care Team (Late st Contact Info) Description 04/10/2023 Patient Msg [facility] [address] [place] [address] Christie Phan MD [address], [place] [address] Labs Social History Tobacco Use [...] is lower risk 4 09/24/2022 Data from: https://www.neighborhoodatlas.medicine.[facility] [place]/. Last address used for calculation [address] [...] [facility] Center Hematology/Oncology [address] [place] [address] BENLYSTA - 03/21/2025 9:00 AM EDT Office Visit [facility] Laboratory [address] [place] [address] [place] [address] 4 week follow up IVIG - pt to see MASON for this appt per [facility] 03/21/2025 9:20 AM EDT Visit (SP) Office Hematology/Oncology [address] [place] [address] Jose Cho MD [address] [place] [address] 4 week follow up IVIG - pt to see MASON for this appt per [facility] 03/21/2025 9:40 AM EDT Infusion Center Hematology/Oncology [address] [place] [address] Gabbi, Chair [address] [place] [address] 4 week follow up IVIG - pt to see MASON for this appt per [facility] 04/05/2025 2:00 PM EST Infusion Center Hematology/Oncology [address] [facility] [place] [address] BENLYSTA - 05/03/2025 2:00 PM [facility] Infusion Center Hematology/Oncology [address] [place] [address] BENLYSTA - documented as of this encounter Visit Diagnoses Not on filedocumented in this encounter Care Teams Fabrication Technician Relationship Specialty Start Date End Date Manuel Klein MD PCP - General Family Medicine 02/27/22 Manuel Klein MD Referring Family Medicine 02/12/22 Manuel Klein MD [address] [place] [facility] [place] [address] Referring Family Medicine 07/06/24 documented as of this encounter
--- OUTSIDE RECORDS SUMMARY | 2025-02-27 14:16 | XMS_ITS | Encounter Summary ---
Author Organization [facility] Address [facility] [place] [address] Care Team Providers Care Repair Welder Name Role Phone Manuel Klein MD Unavailable [phone] Manuel Klein MD Primary Care Provider +-4 Manuel Klein MD Unavailable [phone] Source Comments In the event this information is protected by the Federal Confidentiality of Alcohol and Drug AbusePatient Records regulations: The Federal rules restrict any use of the information to criminally investigate or prosecute any alcohol or drug abuse patient.[facility] Encounter Details Date Type Department Care Team (Late st Contact Info) Description 07/06/2024 Get Medical Advice Infectious Disease [address] [place] [address] Tiffany Head DO [address] [place] [address] Appointment Social History Tobacco Use Types [...] is lower risk 4 09/24/2022 Data from: https://www.neighborhoodatlas.medicine.[facility]/. Last address used for calculation [address] 09/24/2022 Comments No Sex and Gender [...] 11:14 AM EDT Chcihi De Jesus * Are you blind or [...] [facility] Center Hematology/Oncology [address] [place] [address] BENLYSTA - 03/21/2025 9:00 AM EDT Office Visit [facility] [address] [place] [address] [place] [address] 4 week follow up IVIG - pt to see MASON for [facility] appt [facility] 03/21/2025 9:20 AM EDT Visit (SP) Office Hematology/Oncology [address] [place] [address] Jose Cho MD [address] [place] [address] 4 week follow up IVIG - pt to see MASON for this appt [facility] 03/21/2025 9:40 AM EDT Infusion Center Hematology/Oncology [address] [place] [address] Gabbi, Chair [address] [place] [address] 4 week follow up IVIG - pt to see MASON for this appt per [facility] 04/05/2025 2:00 PM EST Infusion Center Hematology/Oncology [address] [place] [address] BENLYSTA - 05/03/2025 2:00 PM EST Infusion Center Hematology/Oncology [address] [place] [address] BENLYSTA - documented as of this encounter Visit Diagnoses Not on filedocumented in this encounter Care Teams Repair Welder Relationship Specialty Start Date End Date Manuel Klein MD PCP - General Family Medicine 02/27/22 Manuel Klein MD Referring Family Medicine 02/12/22 Manuel Klein MD [address] [place] [address] Referring Family Medicine 07/06/24 documented as of this encounter
--- OUTSIDE RECORDS SUMMARY | 2025-02-27 14:16 | XMS_ITS | Encounter Summary ---
Author Organization [facility] Address [address] [facility] [place] [address] Care Team Providers Care Professional Fee Coder Name Role Phone House, Charles Culver MD Primary Care Provider Gay De La Torre MD Unavailable [phone] Encounter Details Date Type Department Care Team (Late Contact Info) Description 04/07/2024 Clinisync Result Encounter [facility] External Department Unsolicited Luan Valdivia, DO [address] [facility] [address] [place], [place] [id number] Social History Tobacco Use Types Packs/Day Years [...] [facility] [address] [facility] [address] [place] [address] Terence Blum MD 7[address] [facility] 150 [place] [address] 03/19/2025 10:20 AM EDT Office Visit [facility] [address] [place] [address] Mary Grace Mejias MD [address] [facility] [address] [place] [address] 07/25/2025 11:00 AM EST Office Visit [facility] [address] [place] [address] Cynthia English MD [address] [place] [address] documented as of this encounter Procedures Procedure Name Priority Date/Time Associated Diagnosis Comments MM TOMOSYNTHESIS DIAGNOSTIC BI 04/07/2024 8:40 AM EST documented in this encounter Results * MM TOMOSYNTHESIS DIAGNOSTIC BI (04/07/2024 8:40 AM EST) Anatomical Region Laterality Modality Other 04/07/2024 8:40 AM EST Narrative 04/07/2024 8:41 AM EST [address] [address] Mammography Report Signed Patient: JONES PANIAGUA MR#: [id number] : 1980 Acct:[id number] Age/Sex: 43 / F ADM Date: 04/06/24 Loc: US Attending Dr: Luan Valdivia D.O. Ordering Physician: Luan Valdivia D.O. Results: Date of Service: 04/06/24 Follow Up: Procedure(s): MM tomosynthesis diagnostic BI Accession Number(s): [id number] cc: GAY DE LA TORRE ; Luan Valdivia D.O. Patient Name: JONES PANIAGUA MR#: [id number] : 1980 Exam Date: 04/06/2024 Ordering Doctor: [...] stomach cancer at age 56. LOCATION: The [facility] BREAST COMPOSITION: There are scattered [...] Signed By: 04/07/24 0841 DD/ 0840 TD/TT: Food And Nutrition Services Supervisor: Procedure Note Radiology, Radiologist, MD - 04/07/2024 [place] [address] Mammography Report Signed Patient: JONES PANIAGUA BMR#: [id number] : 1980Acct:[id number] Age/Sex: 43 / FADM Date: 04/06/24 Loc: US Attending Dr: Luan Valdivia D.O. Ordering Physician: Luan Valdivia D.O.Results: Date of Service: 04/06/24Follow Up: Procedure(s): MM tomosynthesis diagnostic BI Accession Number(s): [id number] cc: GAY DE LA TORRE ; Luan Valdivia D.O. Patient Name: JONES PANIAGUA MR#: [id number] : 1980 Exam Date: 04/06/2024 Ordering Doctor: DR Luan Valdivia . RADIOLOGY REPORT PROCEDURE: MM TOMOSYNTHESIS DIAGNOSTIC BI, 04/06/2024, 15:20 US BREAST BI LIMITED, 04/06/2024, 15:37 COMPARISON: MM TOMOSYNTHESIS SCREENING BI, 09/23/2023. MG MAMM [id number] MARK CAD, 09/01/2022. MG MAMM SCREEN 3D [...] stomach cancer at age 56. LOCATION: The [facility] BREAST COMPOSITION: There are scattered [...] Vito Yusuf M.D. Signed By:04/07/2441 DD/ TD/TT: Food And Nutrition Services Supervisor: Luan Valdivia DO [facility] Final Result documented in this encounter Visit Diagnoses Not on filedocumented in this encounter Care Teams Professional Fee Coder Relationship Specialty Start Date End Date Charles Nicole MD PCP - General Family Medicine 02/09/24 07/17/24 Gay De La Torre MD [address] [place], [place] [address] Referring Physician Family Medicine 07/18/24 documented as of this encounter
--- OUTSIDE RECORDS SUMMARY | 2025-02-27 14:16 | XMS_ITS | Encounter Summary ---
Author Organization [facility] Address [address] [place] [address] Care Team Providers Care Garment Looper Name Role Phone Aime Davidson MD, Lui Nunez Primary Care Provid er Gay De La Torre(Historical) BASKET SORTER.INFANTRY SENIOR SERGEANT Primary Care Provider Unavailable Manuel Klein MD Unavailable [phone] Manuel Klein MD Primary Care Provider [phone] Manuel Klein MD Unavailable [phone] Source Comments In the event this information is protected by the Federal Confidentiality of Alcohol and Drug AbusePatient Records regulations: The Federal rules restrict any use of the information to criminally investigate or prosecute any alcohol or drug abuse patient.[facility] Encounter Details Date Type Department Care Team (Late st Contact Info) Description 06/06/2015 Patient Msg Internal Medicine [place] [address] [place] [address] Lui Salomon Jr., MD [address] [place] [address] Appointment Cancellation Request Social History [...] [facility] Center Hematology/Oncology [address] [place] [address] BENLYSTA - 03/21/2025 9:00 AM EDT Office Visit [facility] [place] [address] 4 week follow up IVIG - pt to see MASON for this appt per Fara 03/21/2025 9:20 AM EDT Visit (SP) Office Hematology/Oncology [facility] [place] [address] Jose Cho MD [address] [place] [address] 4 week follow up IVIG - pt to see MASON for this appt per [facility] 03/21/2025 9:40 AM EDT Infusion Center Hematology/Oncology [address] [place] [address] Gabbi, Chair [address] [place] [address] 4 week follow up IVIG - pt to see MASON for this appt per [facility] 04/05/2025 2:00 PM EST Infusion Center Hematology/Oncology [address] [place] [address] BENLYSTA - 05/03/2025 2:00 PM EST Infusion Center Hematology/Oncology [address] [place] [address] BENLYSTA - documented as of this encounter Visit Diagnoses Not on filedocumented in this encounter Care Teams Garment Looper Relationship Specialty Start Date End Date Lui Salomon Jr., MD PCP - General Internal Medicine 05/31/14 07/08/20 Gay De La Torre(Historical), BASKET SORTER.INFANTRY SENIOR SERGEANT PCP - General Family Medicine 10/24/21 02/26/22 Manuel Klein MD PCP - General Family Medicine 02/27/22 Manuel Klein MD Referring Family Medicine 02/12/22 Manuel Klein MD [address] [place] [facility] [place] [address] Referring Family Medicine 07/06/24 documented as of this encounter
--- OUTSIDE RECORDS SUMMARY | 2025-02-27 14:16 | XMS_ITS | Encounter Summary ---
Author Organization [facility] Address [address] [facility] [place] [address] Care Team Providers Care Cuprous Chloride Helper Name Role Phone House, Charles Culver MD Primary Care Provider [phone] Gay De La Torre MD Unavailable [phone] Encounter Details Date Type Department Care Team (Late Contact Info) Description 04/26/2024 Clinisync Result Encounter [facility] External Department Unsolicited Judy Arciniega MD [address], [address] [address] Social History Tobacco Use Types Packs/Day Years [...] EDT Consult [facility] [address] [facility] 150 [place] [address] Terence Blum MD 703 [facility] 150 [place] [address] 03/19/2025 10:20 AM EDT Office Visit [facility] [address] [facility] 900 [place] [address] Mary Grace Mejias MD [address] [facility] 130 [place] [address] 07/25/2025 11:00 AM EST Office Visit [facility] [address] [place] [address] Cynthia English MD [address] [place] [address] documented as of this encounter Procedures Procedure Name Priority Date/Time Associated Diagnosis Comments SEGMENTAL BLOOD PRESSURE 04/26/2024 12:29 PM EST documented in this encounter Results * SEGMENTAL BLOOD PRESSURE (04/26/2024 12:29 PM EST) Anatomical Region Laterality Modality Radiographic Melody ging 04/26/2024 12:2 9 PM EST Narrative 04/26/2024 12:31 PM EST [address] [address] Vein Report Signed Patient: JONES PANIAGUA MR#: [id number] : 1980 Acct:[id number] Age/Sex: 43 / F ADM Date: 04/26/24 Loc: VC Attending Dr: Judy Arciniega M.D. Ordering Physician: Judy Arciniega M.D. Date of Service: 04/26/24 Procedure(s): VC SEGMENTAL PRESSURES Accession Number(s): [id number] cc: GAY DE LA TORRE ; Judy Arciniega M.D. [address] [address] Patient Name: JONES PANIAGUA MRN: [id number] date: 1980 Sex: F Assigned Patient Location: VC Current Patient Location: Accession/Order Number: [id number] Exam Date: 04/26/2024 10:45 Report Date: 04/26/2024 12:29 At the request of: JUDY ARCINIEGA Procedure: VC SEGMENTAL PRESSURES EXAM: VC SEGMENTAL PRESSURES HISTORY: I73.9 COMPARISON: None. FINDINGS: Segmental pressures presented as follows (right, left) in mmHg. Brachial: 102, 109 Upper thigh: 175, 183 Lower thigh: 166, 177 Calf: 140, 143 DPA: 123, 148 GENETIC ENGINEER: 139, 155 1st Toe: 141, 143 SAMUEL: [...] Signed By: 04/26/24 1231 DD/ 1229 TD/TT: Frontend Engineer: Procedure Note Radiology, Radiologist, MD - 04/26/2024 [place] [address] Vein Report Signed Patient: JONES PANIAGUA BMR#: [id number] : 1980Acct:[id number] Age/Sex: 43 / FADM Date: 04/26/24 Loc: Attending Dr: Judy Arciniega M.D. Ordering Physician: Judy Arciniega M.D. Date of Service: 04/26/24 Procedure(s): VC SEGMENTAL PRESSURES Accession Number(s): [id number] cc: GAY DE LA TORRE ; Judy Arciniega M.D. The [place] [address] Patient Name: JONES PANIAGUA MRN: [id number] date: 1980 Sex: F Assigned Patient Location: Current Patient Location: VC Accession/Order Number: [id number] Exam Date: 04/26/2024 10:45 Report Date: 04/26/2024 12:29 At the request of: JUDY ARCINIEGA Procedure: VC SEGMENTAL PRESSURES EXAM: VC SEGMENTAL PRESSURES HISTORY: I73.9 COMPARISON: None. FINDINGS: Segmental pressures presented as follows (right, left) in mmHg. Brachial: 102, 109 Upper thigh: 175, 183 Lower thigh: 166, 177 Calf: 140, 143 DPA: 123, 148 GENETIC ENGINEER: 139, 155 1st Toe: 141, 143 SAMUEL: [...] M.D. Signed By:04/26/24 1231 DD/ 1229 TD/TT: Frontend Engineer: us Judy Arciniega MD IMG XR PROCEDURES Final Resu lt documented in this encounter Visit Diagnoses Not on filedocumented in this encounter Care Teams Cuprous Chloride Helper Relationship Specialty Start Date End Date Charles Nicole MD PCP - General Family Medicine 02/09/24 07/17/24 Gay De La Torre MD [address] [place], [place] [address] Referring Physician Family Medicine 07/18/24 documented as of this encounter
--- OUTSIDE RECORDS SUMMARY | 2025-02-27 14:16 | XMS_ITS | Clinical Summary ---
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 02/04 Steroid-induced [...] Dermatology [address] [place] [address] Cynthia English MD Pilonidal cyst (Primary Dx); Hidradenitis suppurativa 02/14/2025 Bamboo flowsheet [facility] [address] [place] [address] Cynthia English MD 02/14/2025 Travel 01/30/2025 Results Follow-Up [facility] [address] [place] [address] Sabi aBrker LPN Left breast US limited 01/26/2025 11:45 AM EDT Ancillary Procedure [facility] [address] [place] [address] Other benign mammary dysplasias of left breast 01/26/2025 Travel 12/07/2024 Refill [facility] [address] [place] [address] Андрей Hearn, Eustachian tube dysfunction, bilateral; Non-recurrent acute serous otitis media of both ears 12/01/2024 Telephone [facility] [address] [place] [address] Oly Plascencia PA 11/28/2024 Telephone [facility] [...] AM EDT Consult [facility] [address] [facility] 150 [place] [address] Terence Blum MD 703 [facility] 150 [place] [address] 03/19/2025 10:20 AM EDT Office Visit [facility] [address] [facility] 900 [place] [address] Mary Grace Mejias MD 112 [facility] 130 [place] [address] 07/25/2025 11:00 AM EST Office Visit [facility] [address] [place] [address] Cynthia English MD [address] [place] [address] Health Maintenance Due Date Last [...] EST Narrative 04/07/2024 8:41 [place] [address] Mammography Report Signed Patient: JONES PANIAGUA MR#: [id number] : 1980 Acct:[id number] Age/Sex: 43 / F ADM Date: 04/06/24 Loc: US Attending Dr: Luan Valdivia D.O. Ordering Physician: Luan Valdivia D.O. Results: Date of Service: 04/06/24 Follow Up: Procedure(s): MM tomosynthesis diagnostic BI Accession Number(s): [id number] cc: GAY ENCISO ; Luan Valdivia D.O. Patient Name: JONES PANIAGUA MR#: [id number] : 1980 Exam Date: 04/06/2024 Ordering Doctor: [...] stomach cancer at age 56. LOCATION: The [facility] BREAST COMPOSITION: There are scattered [...] M.D. Signed By: 04/07/2441 DD/ 9 TD/TT: Light Rail Signal Technician: Procedure Note Radiology, Radiologist, MD - 04/07/2024 [place] [address] Mammography Report Signed Patient: JONES PANIAGUA BMR#: [id number] : 1980Acct:[id number] Age/Sex: 43 / FADM Date: 04/06/24 Loc: US Attending Dr: Luan Valdivia D.O. Ordering Physician: Luan Valdivia D.O.Results: Date of Service: 04/06/24Follow Up: Procedure(s): MM tomosynthesis diagnostic BI Accession Number(s): [id number] cc: GAY ENCISO ; Luan Valdivia D.O. Patient Name: JONES PANIAGUA MR#: [id number] : 1980 Exam Date: 04/06/2024 Ordering Doctor: DR Luan Valdivia . RADIOLOGY REPORT PROCEDURE: MM TOMOSYNTHESIS DIAGNOSTIC BI, 04/06/2024, 15:20 US BREAST BI LIMITED, 04/06/2024, 15:37 COMPARISON: MM TOMOSYNTHESIS SCREENING BI, 09/23/2023. MG MAMM [id number] MARK CAD, 09/01/2022. MG MAMM SCREEN 3D [...] stomach cancer at age 56. LOCATION: The [facility] BREAST COMPOSITION: There are scattered [...] M.D. Signed By:04/07/24 0841 DD/ 0840 TD/TT: Light Rail Signal Technician: [facility] Final Result from Last 3 Months or Most Recently Relevant to Health Maintenance Insurance [employer] Care Teams Act English Tutor Relationship Specialty Start Date End Date Gay Enciso MD [address] [place] [address] Referring Physician Family Medicine 07/18/24
--- OUTSIDE RECORDS SUMMARY | 2025-02-27 14:16 | XMS_ITS | Encounter Summary ---
Author Organization [facility] Address [address] [facility] [place] [address] Care Team Providers Care Senior Financial Consultant Name Role Phone House, Charles Culver MD Primary Care Provider [phone] Gay De La Torre MD Unavailable [phone] Encounter Details Date Type Department Care Team (Late Contact Info) Description 06/14/2024 Clinisync Result Encounter [facility] External Department Unsolicited Oly Plascencia PA [address] [place] [address] [place] [address] Social History Tobacco Use Types [...] AM EDT Consult [facility] 7[address] [facility] 150 [place] [address] Terence Blum MD 703 [facility] 150 [place] [address] 03/19/2025 10:20 AM EDT Office Visit [facility] [address] [facility] [facility] 900 [place] [address] Mary Grace Mejias MD [address] [facility] 130 [place] [address] 07/25/2025 11:00 AM EST Office Visit [facility] [address] [place] [address] Cynthia English MD [address] [place] [address] documented as of this encounter Procedures Procedure Name Priority Date/Time Associated Diagnosis Comments MM TOMOSYNTHESIS DIAGNOSTIC LT 06/14/2024 4:14 PM EST documented in this encounter Results * MM TOMOSYNTHESIS DIAGNOSTIC LT (06/14/2024 4:14 PM EST) Anatomical Region Laterality Modality Other 06/14/2024 4:14 PM EST Narrative 06/14/2024 4:15 PM EST [address] [address] Mammography Report Signed Patient: JONES PANIAGUA MR#: [id number] : 1980 Acct:[id number] Age/Sex: 43 / F ADM Date: 06/14/24 Loc: MAMMO Attending Dr: Oly Plascencia Ordering Physician: Oly Plascencia Results: Date of Service: 06/14/24 Follow Up: Procedure(s): MM tomosynthesis diagnostic LT Accession Number(s): [id number] cc: Oly Plascencia; GAY DE LA TORRE Patient Name: JONES PANIAGUA MR#: [id number] : 1980 Exam Date: 06/14/2024 Ordering Doctor: [...] stomach cancer at age 56. LOCATION: The [facility] BREAST COMPOSITION: There are scattered areas [...] Signed By: 06/14/24 1615 DD/ 1614 TD/TT: Crm Specialist: Procedure Note Radiology, Radiologist, MD - 06/14/2024 [place] [address] Mammography Report Signed Patient: JONES PANIAGUA BMR#: [id number] : 1980Acct:[id number] Age/Sex: 43 / FADM Date: 06/14/24 Loc: MAMMO Attending Dr: Oly Plascencia Ordering Physician: Oly PlascenciaResults: Date of Service: 06/14/24Follow Up: Procedure(s): MM tomosynthesis diagnostic LT Accession Number(s): [id number] cc: Oly Plascencia; GAY DE LA TORRE Patient Name: JONES PANIAGUA MR#: [id number] : 1980 Exam Date: 06/14/2024 Ordering Doctor: KELVIN Plascencia . RADIOLOGY REPORT PROCEDURE: MM TOMOSYNTHESIS DIAGNOSTIC LT COMPARISON: US BREAST LT LIMITED, 06/14/2024. MM TOMOSYNTHESISDIAGNOSTIC BI, 04/06/2024. MM TOMOSYNTHESIS SCREENING BI, 09/23/2023. MG MAMM [id number] MARK CAD, 09/01/2022. INDICATIONS: Left Axilla Nodule Calculator Name NCI Breast Cancer Risk Assessment Tool 5 Year Breast Cancer Risk 1.00% Lifetime Breast Cancer Risk 13.20% Personal Breast Cancer No Personal Ovarian Cancer No Treatments None Family Cancers Grandmother-paternal with breast cancer at age 67; Aunt-paternal with breast cancer at age 50; Father with stomach cancer at age 56. LOCATION: The [facility] BREAST COMPOSITION: There are scattered areas [...] Yusuf M.D. Signed By:06/14/245 DD/ 13 TD/TT: Crm Specialist: us Oly [facility]EN [facility] Final Result documented in this encounter Visit Diagnoses Not on filedocumented in this encounter Care Teams Senior Financial Consultant Relationship Specialty Start Date End Date Charles Nicole MD PCP - General Family Medicine 02/09/24 07/17/24 Gay De La Torre MD [address] [place] [address] Referring Physician Family Medicine 07/18/24 documented as of this encounter
--- OUTSIDE RECORDS SUMMARY | 2025-02-27 14:16 | XMS_ITS | Encounter Summary ---
Author Organization [facility] Address [address] [place] [address] Care Team Providers Care Conference Center Coordinator Name Role Phone Aime Davidson MD, Lui Nunez Primary Care Provid er Gay De La Torre(Historical) MILK DRIVER.GAS APPLIANCE INSTALLER Primary Care Provider Unavailable Manuel Klein MD Unavailable [phone] Manuel Klein MD Primary Care Provider [phone] Manuel Klein MD Unavailable [phone] Source Comments In the event this information is protected by the Federal Confidentiality of Alcohol and Drug AbusePatient Records regulations: The Federal rules restrict any use of the information to criminally investigate or prosecute any alcohol or drug abuse patient.[facility] Encounter Details Date Type Department Care Team (Late st Contact Info) Description 12/31/2014 Get Medical Advice Internal Medicine [facility] [place] [address] Lui Salomon Jr., MD [address] [address] Medication Question (Not Renewal) Social [...] Contact Info) Description 03/08/2025 2:00 PM EDT [facility] Hematology/Oncology [address] [place] [address] [place] [address] BENLYSTA - 03/21/2025 9:00 AM EDT Office Visit [facility] [address] [place] [address] 4 week follow up IVIG - pt to see MASON for this appt per Fara 03/21/2025 9:20 AM EDT Visit (SP) Office Hematology/Oncology [address] [place] [address] Jose Cho MD [address] [facility] [place] [address] 4 week follow up IVIG - pt to see MASON for this appt per Fara 03/21/2025 9:40 AM EDT Infusion Center Hematology/Oncology [address] [place] [address] [place], Chair [address] [place] [address] 4 week follow up IVIG - pt to see MASON for this appt per Fara 04/05/2025 2:00 PM EST Infusion Center Hematology/Oncology [address] [place] [address] BENLYSTA - 05/03/2025 2:00 PM [facility] Infusion Center Hematology/Oncology [address] [place] [address] [place] [address] BENLYSTA - documented as of this encounter Visit Diagnoses Not on filedocumented in this encounter Care Teams Conference Center Coordinator Relationship Specialty Start Date End Date Lui Salomon Jr., MD PCP - General Internal Medicine 05/31/14 07/08/20 Gay De La Torre(Historical), MILK DRIVER.GAS APPLIANCE INSTALLER PCP - General Family Medicine 10/24/21 02/26/22 Manuel Klein MD PCP - General Family Medicine 02/27/22 Manuel Klein MD Referring Family Medicine 02/12/22 Manuel Klein MD [address] [place] [id number] Referring Family Medicine 07/06/24 documented as of this encounter
--- OUTSIDE RECORDS SUMMARY | 2025-02-27 14:16 | XMS_ITS | Encounter Summary ---
Author Organization [facility] Address [address] [place] [address] Care Team Providers Care Human Resources Hr Representative Name Role Phone Manuel Klein MD Unavailable [phone] Manuel Klein MD Primary Care Provider [phone] Manuel Klein MD Unavailable [phone] Source Comments In the event this information is protected by the Federal Confidentiality of Alcohol and Drug AbusePatient Records regulations: The Federal rules restrict any use of the information to criminally investigate or prosecute any alcohol or drug abuse patient.[facility] Reason for Visit * Reason Comments Refill Request Encounter Details Date Type Department Care Team (Late st Contact Info) Description 04/26/2024 Refill Rheumatology [address] [place], [place] [id number] Sandra Park MD [address] [place] [address] Refill Request Social History Tobacco [...] is lower risk 4 09/24/2022 Data from: https://www.neighborhoodatlas.medicine.[facility]/. Last address used for calculation [address] 09/24/2022 Comments No Sex and Gender [...] [facility] Hematology/Oncology [address] [place] [address] BENLYSTA - 03/21/2025 9:00 AM EDT Office Visit [facility] [address] [place] [address] [place] [address] 4 week follow up IVIG - pt to see MASON for this appt per [facility] 03/21/2025 9:20 AM EDT Visit (SP) Office Hematology/Oncology [address] [place] [address] Jose Cho MD [address] [place] [address] 4 week follow up IVIG - pt to see MASON for this appt per [facility] 03/21/2025 9:40 AM EDT Infusion Center Hematology/Oncology [address] [place] [address] Gabbi, Chair [address] [place] [address] 4 week follow up IVIG - pt to see MASON for this appt per [facility] 04/05/2025 2:00 PM EST Infusion Center Hematology/Oncology [address] [place] [address] BENLYSTA - 05/03/2025 2:00 PM EST Infusion Center Hematology/Oncology [address] [place] [address] BENLYSTA - documented as of this encounter Visit Diagnoses Diagnosis Other systemic lupus erythematosus with other organ involvement (HCC) documented in this encounter Care Teams Human Resources Hr Representative Relationship Specialty Start Date End Date Manuel Klein MD PCP - General Family Medicine 02/27/22 Manuel Klein MD Referring Family Medicine 02/12/22 Manuel Klein MD [address] [place] [address] Referring Family Medicine 07/06/24 documented as of this encounter
--- OUTSIDE RECORDS SUMMARY | 2025-02-27 14:16 | XMS_ITS | Encounter Summary ---
Author Organization [facility] Address [address] [place] [address] Care Team Providers Care Veteran Appeals Reviewer Name Role Phone Aime Davidson MD, Lui Nunez Primary Care Provid er Gay De La Torre(Historical) COUNTER CUTTER.SENIOR PRINCIPAL SOFTWARE ENGINEER Primary Care Provider Unavailable Manuel Klein MD Unavailable [phone] Manuel Klein MD Primary Care Provider [phone] Manuel Klein MD Unavailable [phone] Source Comments In the event this information is protected by the Federal Confidentiality of Alcohol and Drug AbusePatient Records regulations: The Federal rules restrict any use of the information to criminally investigate or prosecute any alcohol or drug abuse patient.[facility] Encounter Details Date Type Department Care Team (Late st Contact Info) Description 12/31/2014 Patient Msg Medical Records [address] [place] [address] Provider, Ccf RE:Infection Social History Tobacco Use [...] 03/08/2025 2:00 PM EDT [facility] Hematology[facility]Oncology [address] [place] [address] [place] [address] BLANKATA - 03/21/2025 9:00 AM EDT Office Visit [facility] Laboratory [address] [place] [address] [place] [address] 4 week follow up IVIG - pt to see MASON for this appt per Fara 03/21/2025 9:20 AM EDT Visit (SP) Office Hematology/Oncology [address] [place] [address] Jose Cho MD [address] [place] [address] [place] [address] 4 week follow up IVIG - pt to see MASON for this appt per Fara 03/21/2025 9:40 AM EDT Infusion Center Hematology/Oncology [address] [facility] [place] [address] Gabbi, Chair [address] [place] [address] 4 week follow up IVIG - pt to see MASON for this appt per Fara 04/05/2025 2:00 PM EST Infusion Center Hematology/Oncology [address] [place] [address] BENLYSTA - 05/03/2025 2:00 PM EST Infusion Center Hematology/Oncology [address] [place] [address] BENLYSTA - documented as of this encounter Visit Diagnoses Not on filedocumented in this encounter Care Teams Veteran Appeals Reviewer Relationship Specialty Start Date End Date Lui Salomon Jr., MD PCP - General Internal Medicine 05/31/14 07/08/20 Gay De La Torre(Historical), COUNTER CUTTER.SENIOR PRINCIPAL SOFTWARE ENGINEER PCP - General Family Medicine 10/24/21 02/26/22 Manuel Klein MD PCP - General Family Medicine 02/27/22 Manuel Klein MD Referring Family Medicine 02/12/22 Manuel Klein MD [facility] [place] [address] Referring Family Medicine 07/06/24 documented as of this encounter
--- OUTSIDE RECORDS SUMMARY | 2025-02-27 14:16 | XMS_ITS | Encounter Summary ---
Author Organization [facility] Address [address] [facility] [place] [address] Care Team Providers Care Beam Worker Name Role Phone House, Charles Culver MD Primary Care Provider Gay De La Torre MD Unavailable [phone] Encounter Details Date Type Department Care Team (Late Contact Info) Description 04/07/2024 Clinisync Result Encounter NOMS External Department Unsolicited Oly Parnell PA [address] [place] [address] [place] [address] Social History Tobacco Use Types [...] [facility] [address] [facility] 150 [place] [address] Terence Blum MD 703 [facility] 150 [place] [address] 03/19/2025 10:20 AM EDT Office Visit [facility] [address] [facility] 900 [place] [address] Mary Grace Mejias MD [address] [facility] 130 [place] [address] 07/25/2025 11:00 AM EST Office Visit [facility] [address] [place] [address] Cynthia English MD [address] [place] [address] documented as of this encounter Procedures Procedure Name Priority Date/Time Associated Diagnosis Comments US PELVIS W/ TRANSVAGINAL 04/07/2024 4:48 AM EST documented in this encounter Results * US PELVIS W/ TRANSVAGINAL (04/07/2024 4:48 AM EST) Anatomical Region Laterality Modality Other 04/07/2024 4:48 AM EST Narrative 04/07/2024 4:51 AM EST [address] [address] Ultrasound Report Signed Patient: JONES PANIAGUA MR#: [id number] : 1980 Acct:[id number] Age/Sex: 43 / F ADM Date: 04/06/24 Loc: LAB Attending Dr: Oly Parnell Ordering Physician: Oly Parnell Date of Service: 04/06/24 Procedure(s): US pelvis w/ transvaginal Accession Number(s): [id number] cc: GAY Mcpherson [address] [address] Patient Name: JONES PANIAGUA MRN: [id number] date: 1980 Sex: F Assigned Patient Location: LAB Current Patient Location: Accession/Order Number: [id number] Exam Date: 04/06/2024 15:45 Report Date: 04/07/2024 [...] Signed By: 04/07/24 0451 DD/ 0448 TD/TT: Mental Health Social Worker: Procedure Note Radiology, Radiologist, MD - 04/07/2024 [place] [address] Ultrasound Report Signed Patient: JONES PANIAGUA BMR#: [id number] : 1980Acct:[id number] Age/Sex: 43 / FADM Date: 04/06/24 Loc: LAB Attending Dr: Oly Parnell Ordering Physician: Oly Parnell Date of Service: 04/06/24 Procedure(s): US pelvis w/ transvaginal Accession Number(s): [id number] cc: GAY Mcpherson The [address] [address] Patient Name: JONES PANIAGUA MRN: [id number] date: 1980 Sex: F Assigned Patient Location: LAB Current Patient Location: Accession/Order Number: [id number] Exam Date: 04/06/2024 15:45 Report Date: 04/07/2024 [...] Yusuf M.D. Signed By:04/07/24 045 DD/ TD/TT: Mental Health Social Worker: us Oly [facility] Final Result documented in this encounter Visit Diagnoses Not on filedocumented in this encounter Care Teams Beam Worker Relationship Specialty Start Date End Date Charles Nicole MD PCP - General Family Medicine 02/09/24 07/17/24 Gay De La Torre MD [address] [place] [address] Referring Physician Family Medicine 07/18/24 documented as of this encounter
--- OUTSIDE RECORDS SUMMARY | 2025-02-27 14:16 | XMS_ITS | Encounter Summary ---
Author Organization [facility] Address [address] [place] [address] Care Team Providers Care Packaging Machine Supplies Distributor Name Role Phone Aime Davidson MD, Lui Nunez Primary Care Provid er Gay De La Torre(Historical) MARKETING TEAM LEAD.VIROLOGIST Primary Care Provider Unavailable Manuel Klein MD Unavailable [phone] Manuel Klein MD Primary Care Provider [phone] Manuel Klein MD Unavailable [phone] Source Comments In the event this information is protected by the Federal Confidentiality of Alcohol and Drug AbusePatient Records regulations: The Federal rules restrict any use of the information to criminally investigate or prosecute any alcohol or drug abuse patient.[facility] Encounter Details Date Type Department Care Team (Late st Contact Info) Description 05/01/2015 Get Medical Advice Internal Medicine [facility] [place] [address] Lui Salomon Jr., MD [address] [address] RE: Medication Question (Not Renewal) [...] [facility] Center Center Hematology/Oncology [address] [place] [address] BENLYSTA - 03/21/2025 9:00 AM EDT Office Visit [facility] Laboratory [facility] [place] [address] 4 week follow up IVIG - pt to see MASON for this appt per Fara 03/21/2025 9:20 AM EDT Visit (SP) Office Hematology/Oncology [facility] [place] [address] Jose Cho MD [address] [place] [address] 4 week follow up IVIG - pt to see MASON for this appt per Fara 03/21/2025 9:40 AM EDT Infusion Center Hematology/Oncology [address] [place] [address] Gabbi, Chair [address] [place] [address] 4 week follow up IVIG - pt to see MASON for this appt per Fara 04/05/2025 2:00 PM EST Infusion Center Hematology/Oncology [address] [place] [address] BENLYSTA - 05/03/2025 2:00 PM EST Infusion Center Hematology/Oncology [address] [place] [address] [place] [address] BENLYSTA - documented as of this encounter Visit Diagnoses Not on filedocumented in this encounter Care Teams Packaging Machine Supplies Distributor Relationship Specialty Start Date End Date Lui Salomon Jr., MD PCP - General Internal Medicine 05/31/14 07/08/20 Gay De La Torre(Historical), MARKETING TEAM LEAD.VIROLOGIST PCP - General Family Medicine 10/24/21 02/26/22 Manuel Klein MD PCP - General Family Medicine 02/27/22 Manuel Klein MD Referring Family Medicine 02/12/22 Manuel Klein MD [address] [facility] [address] Referring Family Medicine 07/06/24 documented as of this encounter
--- OUTSIDE RECORDS SUMMARY | 2025-02-27 14:16 | XMS_ITS | Encounter Summary ---
Author Organization [facility] Address [address] [place] [address] Care Team Providers Care Compressor Station Engineer Chief Name Role Phone Manuel Klein MD Unavailable [phone] Manuel Klein MD Primary Care Provider [phone] Manuel Klein MD Unavailable [phone] Source Comments In the event this information is protected by the Federal Confidentiality of Alcohol and Drug AbusePatient Records regulations: The Federal rules restrict any use of the information to criminally investigate or prosecute any alcohol or drug abuse patient.[facility] Encounter Details Date Type Department Care Team (Late st Contact Info) Description 05/11/2023 Get Medical Advice Rheumatology [address] [place], [place] [id number] Sandra Park MD [address] [place] [address] Flair Social History Tobacco Use [...] Data from: https://www.neighborhoodatlas.medicine.[facility]/. Last address used for calculation [address] 09/24/2022 Comments No Sex and [...] Department VIDEO SPEC EST 08/12/2023 9:00 AM [facility] ME[facility] Last Ophthalmology Check for Plaquenil [...] 2:00 PM EDT Infusion Center Hematology/Oncology [address] [facility] [place] [address] BENLYSTA - 03/21/2025 9:00 AM EDT Office Visit [facility] Laboratory [address] [place] [address] 4 week follow up IVIG - pt to see MASON for this appt per Fara 03/21/2025 9:20 AM EDT Visit (SP) Office Hematology/Oncology [address] [facility] [place] [address] Jose Cho MD [address] [facility] [place] [address] 4 week follow up IVIG - pt to see MASON for this appt per Fara 03/21/2025 9:40 AM EDT Infusion Center Hematology/Oncology [address] [facility] [place] [address] Tipton, Chair 4 [address] [facility] [place] [address] 4 week follow up IVIG - pt to see MASON for this appt per Fara 04/05/2025 2:00 PM EST Infusion Center Hematology/Oncology [address] [facility] [place] [address] BENLYSTA - 05/03/2025 2:00 PM EST Infusion Center Hematology/Oncology [address] [facility] [place] [address] BENLYSTA - documented as of this encounter Visit Diagnoses Diagnosis Other systemic lupus erythematosus with other organ involvement (HCC) documented in this encounter Care Teams Compressor Station Engineer Chief Relationship Specialty Start Date End Date Manuel Klein MD PCP - General Family Medicine 02/27/22 Manuel Klein MD Referring Family Medicine 02/12/22 Manuel Klein MD [address] [place] [address] Referring Family Medicine 07/06/24 documented as of this encounter
--- OUTSIDE RECORDS SUMMARY | 2025-02-27 14:16 | XMS_ITS | Encounter Summary ---
Author Organization [facility] Address [address] [facility] [place] [address] Care Team Providers Care Sales Representative Aircraft Name Role Phone House, Charles Culver MD Primary Care Provider [phone] Gay De La Torre MD Unavailable [phone] Reason for Visit * Reason Comments Med Refill Encounter Details Date Type Department Care Team (Late Contact Info) Description 07/02/2024 Refill [facility] [address] [facility] [address] [place] [address] Mary Grace Mejias MD 112 [facility] [address] [place] [address] LPRD (laryngopharyngeal reflux disease) Social History Tobacco [...] AM EDT Consult [facility] [address] [facility] 150 [place] [address] Terence Blum MD 703 [facility] 150 [place] [address] 03/19/2025 10:20 AM EDT Office Visit [facility] [facility] [address] [place] [address] Mary Grace Mejias MD 112 [facility] [address] [place] [address] 07/25/2025 11:00 AM EST Office Visit [facility] [address] [place] [address] Cynthia English MD [address] [place] [address] documented as of this encounter Visit Diagnoses Diagnosis LPRD (laryngopharyngeal reflux disease) Acute laryngitis, without mention of obstruction documented in this encounter Care Teams Sales Representative Aircraft Relationship Specialty Start Date End Date Charles Nicole MD PCP - General Family Medicine 02/09/24 07/17/24 Gay De La Torre MD [address] [place] [address] Referring Physician Family Medicine 07/18/24 documented as of this encounter
--- OUTSIDE RECORDS SUMMARY | 2025-02-27 14:16 | XMS_ITS | Encounter Summary ---
Author Organization [facility] Address [address] [facility] [place] [address] Care Team Providers Care Director Nicu Name Role Phone House, Charles Culver MD Primary Care Provider [phone] Gay De La Torre MD Unavailable [phone] Encounter Details Date Type Department Care Team (Late Contact Info) Description 06/20/2024 Orders Only [facility] [address] [address] [place] [address] Sabi Barker LPN [address] [employer] [place] [id number] Social History Tobacco Use Types Packs/Day Years Used Date Smoking Tobacco: Every Day Cigarettes 1 29.8 Started: 05/24/1995 Smokeless Tobacco: Never Comments:Current smoker, carlso mars, 11-20 cigarettes/day Alcohol Use Standard Drinks/Week [...] AM EDT Consult [facility] [address] [id number] Terence Blum MD 703 [facility] 150 [place] [address] 03/19/2025 10:20 AM EDT Office Visit [facility] [address] [place] [address] Mary Grace Mejias MD 112 [facility] [address] [place] [address] 07/25/2025 11:00 AM EST Office Visit [facility] [address] [place] [address] Cynthia English MD [address] [place] [address] documented as of this encounter [...] filedocumented in this encounter Care Teams Director Nicu Relationship Specialty Start Date End Date Charles Nicole MD PCP - General Family Medicine 02/09/24 07/17/24 Gay De La Torre MD [facility] [place] [address] Referring Physician Family Medicine 07/18/24 documented as of this encounter
--- OUTSIDE RECORDS SUMMARY | 2025-02-27 14:16 | XMS_ITS | Encounter Summary ---
Author Organization [facility] Address [address] [place] [address] Care Team Providers Care Ocean Freight Agent Name Role Phone Manuel Klein MD Unavailable [phone] Manuel Klein MD Primary Care Provider [phone] Manuel Klein MD Unavailable [phone] Source Comments In the event this information is protected by the Federal Confidentiality of Alcohol and Drug AbusePatient Records regulations: The Federal rules restrict any use of the information to criminally investigate or prosecute any alcohol or drug abuse patient.[facility] Encounter Details Date Type Department Care Team (Late st Contact Info) Description 07/06/2024 Patient Msg Referring Physician [address] [place] [phone] Provider, Ccf Appointment Social History Tobacco Use [...] is lower risk 4 09/24/2022 Data from: https://www.neighborhoodatlas.[facility].edu/. Last address used for calculation [address] 09/24/2022 Comments No Sex and Gender [...] [place] [facility] Hematology/Oncology [address] [place] [address] BENLYSTA - 03/21/2025 9:00 AM EDT Office Visit [facility] [place] [address] 4 week follow up IVIG - pt to see MASON for this appt per Fara 03/21/2025 9:20 AM EDT Visit (SP) Office Hematology/Oncology [facility] [place] [address] Jose Cho MD [address] [facility] [place] [address] 4 week follow up IVIG - pt to see MASON for this appt per Fara 03/21/2025 9:40 AM EDT Infusion Center Hematology/Oncology [address] [facility] [place] [address] Gabbi, Chair 4 [address] [facility] [place] [address] 4 week follow up IVIG - pt to see MASON for this appt per Fara 04/05/2025 2:00 PM EST Infusion Center Hematology/Oncology [address] [facility] [place] [address] BENLYSTA - 05/03/2025 2:00 PM [facility] Infusion Center Hematology/Oncology [address] [place] [address] [place] [address] BENLYSTA - documented as of this encounter Visit Diagnoses Not on filedocumented in this encounter Care Teams Ocean Freight Agent Relationship Specialty Start Date End Date Manuel Klein MD PCP - General Family Medicine 02/27/22 Manuel Klein MD Referring Family Medicine 02/12/22 Manuel Klein MD [address] [place] [address] Referring Family Medicine 07/06/24 documented as of this encounter
--- OUTSIDE RECORDS SUMMARY | 2025-02-27 14:16 | XMS_ITS | Encounter Summary ---
Author Organization [facility] Address [address] [facility] [place] [address] Care Team Providers Care Auto Striper Name Role Phone House, Charles Culver MD Primary Care Provider Gay De La Torre MD Unavailable [phone] Encounter Details Date Type Department Care Team (Late Contact Info) Description 06/14/2024 Clinisync Result Encounter [facility] External Department Unsolicited Oly Plascencia PA [address] [place] [address] [place] [address] Social History Tobacco Use Types Packs/Day Years Used Date Smoking Tobacco: Every Day Cigarettes 1 29.8 Started: 05/24/1995 Smokeless Tobacco: Never Comments:Current smoker, carols ryday, 11-20 cigarettes/day Alcohol Use Standard Drinks/Week [...] AM EDT Consult [facility] 703 [facility] 150 [place] [address] Terence Blum MD 703 [facility] 150 [place] [address] 03/19/2025 10:20 AM EDT Office Visit [facility] [address] [facility] [address] [place] [address] Mary Grace Mejias MD [address] [facility] [address] [place] [address] 07/25/2025 11:00 AM EST Office Visit [facility] [address] [place] [address] Cynthia English MD [address] [place] [address] documented as of this encounter Procedures Procedure Name Priority Date/Time Associated Diagnosis Comments US BREAST LT LIMITED 06/14/2024 3:04 PM EST documented in this encounter Results * US BREAST LT LIMITED (06/14/2024 3:04 PM EST) Anatomical Region Laterality Modality Other 06/14/2024 3:04 PM EST Narrative 06/14/2024 3:05 PM EST [address] [address] Ultrasound Report Signed Patient: JONES PANIAGUA MR#: [id number] : 1980 Acct:[id number] Age/Sex: 43 / F ADM Date: 06/14/24 Loc: MAMMO Attending Dr: Oly Plascencia Ordering Physician: Oly Plascencia Date of Service: 06/14/24 Procedure(s): US breast LT limited Accession Number(s): [id number] cc: Oly Plascencia; GAY DE LA TORRE Patient Name: JONES PANIAGUA MR#: [id number] : 1980 Exam Date: 06/14/2024 Ordering Doctor: [...] Signed By: 06/14/24 1505 DD/ 1504 TD/TT: Accounting Tutor: Procedure Note Radiology, Radiologist, MD - 06/14/2024 [place] [address] Ultrasound Report Signed Patient: JONES PANIAGUA BMR#: [id number] : 1980Acct:[id number] Age/Sex: 43 / FADM Date: 06/14/24 Loc: MAMMO Attending Dr: Oly Plascencia Ordering Physician: Oly Plascencia Date of Service: 06/14/24 Procedure(s): US breast LT limited Accession Number(s): [id number] cc: Oly Plascencia; GAY DE LA TORRE Patient Name: JONES PANIAGUA MR#: [id number] : 1980 Exam Date: 06/14/2024 Ordering Doctor: [...] M.D. Signed By:06/14/24 1505 DD/ 1504 TD/TT: Accounting Tutor: us [facility] Final Result documented in this encounter Visit Diagnoses Not on filedocumented in this encounter Care Teams Auto Striper Relationship Specialty Start Date End Date Charles Nicole MD PCP - General Family Medicine 02/09/24 07/17/24 Gay De La Torre MD [address] [place] [address] Referring Physician Family Medicine 07/18/24 documented as of this encounter
--- OUTSIDE RECORDS SUMMARY | 2025-02-27 14:16 | XMS_ITS | Encounter Summary ---
Author Organization [facility] Address [address] [place] [address] Care Team Providers Care Computer Operator Name Role Phone Aime Davidson MD, Lui Nunez Primary Care Provid er Gay De La Torre(Historical) FIRST SAMPLER.PROFESSOR OF SURGERY Primary Care Provider Unavailable Manuel Klein MD Unavailable [phone] Manuel Klein MD Primary Care Provider [phone] Manuel Klein MD Unavailable [phone] Source Comments In the event this [...] Description 12/31/2014 Patient Msg Medical Records [address] [place] [address] Provider, Ccf Prescription Social History Tobacco Use [...] EDT [facility] Hematology/Oncology [address] [place], [place] [address] [address] TOOTIELYSTA - 03/21/2025 9:00 AM EDT Office Visit [facility] Laboratory [facility] [place] [address] 4 week follow up IVIG - pt to see MASON for this appt per Fara 03/21/2025 9:20 AM EDT Visit (SP) Office Hematology/[place] [address] Jose Cho MD [address] [place] [address] [place] [address] 4 week follow up IVIG - pt to see MASON for this appt per Fara 03/21/2025 9:40 AM EDT Infusion Center Hematology/Oncology [address] [facility] [place] [address] Gabbi, Chair [address] [place] [address] 4 week follow up IVIG - pt to see MASON for this appt per Fara 04/05/2025 2:00 PM EST Infusion Center Hematology/Oncology [address] [facility] [place] [address] BENLYSTA - 05/03/2025 2:00 PM EST Infusion Center Hematology/Oncology [address] [facility] [place] [address] BENLYSTA - documented as of this encounter Visit Diagnoses Not on filedocumented in this encounter Care Teams Computer Operator Relationship Specialty Start Date End Date Lui Salomon Jr., MD PCP - General Internal Medicine 05/31/14 07/08/20 Gay De La Torre(Historical), FIRST SAMPLER.PROFESSOR OF SURGERY PCP - General Family Medicine 10/24/21 02/26/22 Manuel Klein MD PCP - General Family Medicine 02/27/22 Manuel Klein MD Referring Family Medicine 02/12/22 Manuel Klein MD [address] [place] [address] Referring Family Medicine 07/06/24 documented as of this encounter
[2025-02-27 14:45] LABS: Hematocrit 39.5 % (36.0-48.0); Hemoglobin 13.1 g/dL (12.0-16.0); Immature Granulocytes Abs Auto 0.14 10^3/uL (0.00-0.03); Immature Granulocytes Pct Auto 1.4 % (0.0-0.5); Lymphocytes Absolute Auto 1.8 10^3/uL (1.2-3.8); Mean Corpuscular HGB Conc 33.2 g/dL (29.9-35.2); Mean Corpuscular Hemoglobin 32.0 pg (26.7-34.0); Mean Corpuscular Volume 96.6 fL (81.0-99.0); Platelet Count 257 10^3/uL (150-450); Red Blood Count 4.09 10^6/uL (4.20-5.40); White Blood Count 10.2 10^3/uL (4.0-11.0)
--- OUTSIDE RECORDS SUMMARY | 2025-02-27 14:45 | XMS_ITS | CCD ---
Author Organization [facility] Care Team Providers Care Corporate Training Manager Name Role Phone VICTOR MANUEL GUZMAN Referring Unavailable Unavailable Primary Care Provider UnavailJONAS Stuart Referring Unavailable Britt PENSION FUND MANAGER.SPORTS MANAGEMENT INTERN, Gay Primary Care Provider Mirela Kelsey Unavailable Britt PENSION FUND MANAGER.Gay BISWAS Primary Care Provider Manuel Ferris MD [...] Provider Manuel Ferris MD Primary Care Provider [phone] MD Adolfo Kang Attending Provider CARISSA Enciso-Ananya Estrada Primary Care Provider Charles Nicole MD Primary Care Provider CALOS MENDOZA Attending Unavailable Unavailable Primary Care Provider UnavailManuel Calixto MD Unavailable Britt GEROPSYCHOLOGIST-C, Gay Estrada Primary Care Provider Jorge Luis LEE, Adolfo S Attending Provider [phone] ALHAJI HEAD Attending Unavailable MANUEL FERRIS [...] BRITT, GAY S Primary Care Unavailable Britt GEROPSYCHOLOGIST-C, Gay Natalie Primary Care Provider [phone] Adolfo Kang MD Attending Provider Britt GEROPSYCHOLOGIST-C, Gay Natalie Primary Care Provider [phone] Jorge Luis LEE, Adolfo Jane Attending Provider Margie Arnett NP Attending Provider Britt GEROPSYCHOLOGIST-C, Gay Natalie Primary Care Provider Jorge Luis LEE, Adolfo Jane Attending Provider Bandar Portillo APRN Attending Provider Adolfo Kang Admitting Unavailable Adolfo Kang Attending Unavailable Britt, Gay Natalie Primary Care Unavailable Adolfo Kang Admitting Unavailable Adolof Kang Attending Unavailable Britt, Gay Natalie Primary Care Unavailable Janes Barfield Admitting Unavailab le Janes Barfield Attending Unavailab le Britt, Gay Natalie Primary Care Unavailable Adolfo Kang Admitting Unavailable Adolfo Kang Attending Unavailable Britt, Gay Natalie Primary Care Unavailable Britt GEROPSYCHOLOGIST-C, Gay Natalie Primary Care Provider Adolfo Kang MD Attending Provider [phone] Janes Barfield MD Attending Provider [phone] Adolfo Kang MD Other Provider BERNABE ENGLISH [...] sources) Trimethoprim Drug Allergy Other: See Comments [facility] Doxycycline (3 sources) Doxycycline Drug Allergy Other: See Comments [facility] Latex (3 sources) Latex Substance Allergy Rash [facility] Lincosamides (antibiotic) (3 sources) Clindamycin Drug Allergy Unknown [facility] Opioid Agonists (3 sources) Codeine Drug Allergy Other: See Comments [facility] Sulfamethoxazole / Trimethoprim (4 sources) Sulfamethoxazole / Trimethoprim Drug Allergy [facility] Sulfonamides (antibiotic) (3 sources) Sulfamethoxazole Drug Allergy Other: See Comments [facility] Work Phone: (20 sources) Codeine; Translations: [CODEINE] Drug Allergy Other: See Comments [facility] (20 sources) Latex; Translations: [LATEX] Drug Allergy Rash [facility] (20 sources) Sulfamethoxazole; Translations: [SULFAMETHOXAZOLE] Drug Allergy GI Upset, Other: See Comments [facility] (20 sources) Clindamycin; Translations: [CLINDAMYCIN] Drug Allergy Unknown [facility] (4 sources) Sulfamethoxazole / Trimethoprim Drug Allergy lymph swelling [facility] Other (20 sources) Doxycycline; Translations: [DOXYCYCLINE] Drug Allergy Other: See Comments, Other, Unknown, Other (See Comments) [facility] (20 sources) Sulfamethoxazole / Trimethoprim; Translations: [SULFAMETHOXAZOLE-T RIMETHOPRIM] Drug Allergy Swelling, Other, GI Disturbance, Other (See Comments) [facility] (20 sources) Trimethoprim; Translations: [TRIMETHOPRIM] Drug Allergy Other: See Comments [facility] (1 source) Latex Drug allergy (disorder) [facility] (1 source) Sulfamethoxazole / Trimethoprim Drug Allergy [facility] (20 sources) Sulfamethoxazole Allergy to substance [facility] (20 sources) Latex Propensity to adverse reactions 015 Rash [facility] (1 source) Omeprazole; Translations: [OMEPRAZOLE] Drug Allergy [facility] Repository (1 source) pantoprazole; Translations: [PANTOPRAZOLE] Drug Allergy [facility] Rep[facility] (1 source) Clindamycin Drug Allergy [facility] (1 source) Sulfamethoxazole Drug Allergy [facility] (1 source) Trimethoprim Drug Allergy [facility] Medications Current Medications Medication 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 02/01/2024 Active hfgyhldducPYCCC-ssgaim-xxbfc belia (BMX 1:1:1) 1:1:1 liqd (20 sources) Start: 07-12-2024 take 5 mL by mouth every six hours as needed kvnvbvdefpSBSZJ-qnhvca-kzzceudvf (BMX 1:1:1) 1:1:1 liqd Take 5 mL [...] Comment on above: Take 1 capsule by [facility] once daily. ergocalciferol 1.25 mg oral capsule (20 sources) Provitamin D2 Compound Start: 11-13-2024 Ergocalciferol (Vitamin D2) 1,250 mcg (50,000 unit) capsule Active 82606 UNIT PO 3 Times a week November [...] D2) 1,250 mcg (50,000 unit) capsule Discontinued 27588 UNIT PO every week October 20, 2023 [...] every week ergocalciferol (Vitamin D2) 1.25 MG (53776 UT) capsule Take 50,000 Units by mouth [...] Active Start: 10-20-2023 take 4 tablets by [facility] once daily Metoprolol Tartrate 50 mg tablet [...] Active Start: 05-25-2022 take 1 tablet by [facility] twice daily metoprolol tartrate, short acting, [...] Discontinued Start: 08-29-2022 take 1 capsule by [facility] once daily naltrexone capsule 1 mg TAKE [...] 0.4 mg unde r the tongue. nystatin 388569 unt/ml oral suspension (20 sources) Polyene Antifungal [...] swallow Start: 07-25-2024 End: 08-08-2024 nystatin (Mycostatin) 909620 UNIT/ML suspension Indications: Rash and other nonspecific [...] 10-20-2023 take 2 tablets by mo [facility] once daily Prednisone 10 mg tablet [...] g 11 07/25/2024 Active Start: 08-16-2023 tacrolimus (IN OTOPIC) 0.1 % ointment Apply 1 Application [...] above: Take 1 capsule by mo [facility] twice daily. 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] Onset: 1 Episodic Other aftercare (20 sources) H/O: high risk medication; Translations: [Other usp (current) drug therapy] Onset: 3 06-15-2022 Episodic Other aftercare (1 source) 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 [id number] [place] [address] Basophils/100 WBC (Bld) 0.7 % Normal [place] Comment on above: Order Comment: Speci men Type: BLOOD SPECIMENOrdering Facility: [facility] Address: [address] [place] [address] Performed By: #### 5 7021-8 ####[facility] [id number] [place] [address] Differential cell count method Nom (Bld) Auto Normal [place] Comment on above: Order Comment: Speci men Type: BLOOD SPECIMENOrdering Facility: [facility] Address: [address] [place] [address] Performed By: #### 5 7021-8 ####[facility] [id number] [place] [address] Eosinophils (Bld) [#/Vol] 0.11 10*3/uL Normal <0.46 [place] Comment on above: Order Comment: Speci men Type: BLOOD SPECIMENOrdering Facility: [facility] Address: [address] [place] [address] Performed By: #### 5 7021-8 ####[facility] [id number] [place] [address] Eosinophils/100 WBC (Bld) 0.8 % Normal [place] Comment on above: Order Comment: Speci men Type: BLOOD SPECIMENOrdering Facility: [facility] Address: [address] [place] [address] Performed By: #### 5 7021-8 ####[facility] [id number] [place] [address] Erythrocyte distribution width (RBC) [Ratio] 14.3 % Normal 11.5-15.0 [place] Comment on above: Order Comment: Speci men Type: BLOOD SPECIMENOrdering Facility: [facility] Address: [address] [place] [address] Performed By: #### 5 7021-8 ####[facility] [id number] [place] [address] Hematocrit (Bld) [Volume fraction] 46.0 % Normal 36.0-46.0 [place] Comment on above: Order Comment: Speci men Type: BLOOD SPECIMENOrdering Facility: [facility] Address: [address] [place] [address] Performed By: #### 5 7021-8 ####[facility] [id number] [place] [address] Hemoglobin (Bld) [Mass/Vol] 15.1 g/dL Normal 11.5-15.5 [place] Comment on above: Order Comment: Speci men Type: BLOOD SPECIMENOrdering Facility: [facility] Address: [address] [place] [address] Performed By: #### 5 7021-8 ####[facility] [id number] [place] [address] Immature granulocytes (Bld) [#/Vol] 0.21 10*3/uL High <0.10 [place] Comment on above: Order Comment: Speci men Type: BLOOD SPECIMENOrdering Facility: [facility] Address: [address] [place] [address] Performed By: #### 5 7021-8 ####[facility] [id number] [place] [address] Immature granulocytes/100 WBC (Bld) 1.6 % Normal [place] Comment on above: Order Comment: Speci men Type: BLOOD SPECIMENOrdering Facility: [facility] Address: [address] [place] [address] Performed By: #### 5 7021-8 ####[facility] [id number] [place] [address] Lymphocytes (Bld) [#/Vol] 1.89 10*3/uL Normal 1.00-4.00 [place] Comment on above: Order Comment: Speci men Type: BLOOD SPECIMENOrdering Facility: [facility] Address: [address] [place] [address] Performed By: #### 5 7021-8 ####[facility] [id number] [place] [address] Lymphocytes/100 WBC (Bld) 14.4 % Normal [place] Comment on above: Order Comment: Speci men Type: BLOOD SPECIMENOrdering Facility: [facility] Address: [address] [place] [address] Performed By: #### 5 7021-8 ####[facility] [id number] [place] [address] MCH (RBC) [Entitic mass] 31.7 pg Normal 26.0-34.0 [place] Comment on above: Order Comment: Speci men Type: BLOOD SPECIMENOrdering Facility: [facility] Address: [address] [place] [address] Performed By: #### 5 7021-8 ####[facility]IA [id number] [place] [address] MCHC (RBC) [Mass/Vol] 32.8 g/dL Normal 30.5-36.0 [facility] Comment on above: Order Comment: Speci men Type: BLOOD SPECIMENOrdering Facility: [facility] Address: [address] [place] [address] Performed By: #### 5 7021-8 ####[facility] [id number] [place] [address] MCV (RBC) [Entitic vol] 96.4 fL Normal 80.0-100.0 [place] Comment on above: Order Comment: Speci men Type: BLOOD SPECIMENOrdering Facility: [facility] Address: [address] [place] [address] Performed By: #### 5 7021-8 ####[facility] [id number] [place] [address] Monocytes (Bld) [#/Vol] 0.92 10*3/uL High <0.87 [place] Comment on above: Order Comment: Speci men Type: BLOOD SPECIMENOrdering Facility: [facility] Address: [address] [place] [address] Performed By: #### 5 7021-8 ####[facility] [id number] [place] [address] Monocytes/100 WBC (Bld) 7.0 % Normal [place] Comment on above: Order Comment: Speci men Type: BLOOD SPECIMENOrdering Facility: [facility] Address: [address] [place] [address] Performed By: #### 5 7021-8 ####[facility] [id number] [place] [address] Neutrophils (Bld) [#/Vol] 9.94 10*3/uL High 1.45-7.50 [place] Comment on above: Order Comment: Speci men Type: BLOOD SPECIMENOrdering Facility: [facility] Address: [address] [place] [address] Performed By: #### 5 7021-8 ####[facility] [id number] [place] [address] Neutrophils/100 WBC (Bld) 75.5 % Normal [place] Comment on above: Order Comment: Speci men Type: BLOOD SPECIMENOrdering Facility: [facility] Address: [address] [place] [address] Performed By: #### 5 7021-8 ####[facility] [id number] [place] [address] Nucleated RBC (Bld) [#/Vol] 10*3/uL Normal <0.01 [place] Comment on above: Order Comment: Speci men Type: BLOOD SPECIMENOrdering Facility: [facility] Address: [address] [place] [address] Performed By: #### 5 7021-8 ####[facility] [id number] [place] [address] Nucleated RBC/100 WBC (Bld) [Ratio] 0.0 /100 WBC Normal [place] Comment on above: Order Comment: Speci men Type: BLOOD SPECIMENOrdering Facility: [facility] Address: [address] [place] [address] Performed By: #### 5 7021-8 ####[facility] [id number] [place] [address] Platelet mean volume (Bld) [Entitic vol] 9.9 fL Normal 9.0-12.7 [place] Comment on above: Order Comment: Speci men Type: BLOOD SPECIMENOrdering Facility: [facility] Address: [address] [place] [address] Performed By: #### 5 7021-8 ####[facility]IA [id number] [place] [address] Platelets (Bld) [#/Vol] 305 10*3/uL Normal 150-400 [place] Comment on above: Order Comment: Speci men Type: BLOOD SPECIMENOrdering Facility: [facility] Address: [address] [place] [address] Performed By: #### 5 7021-8 ####[facility] [id number] [place] [address] RBC (Bld) [#/Vol] 4.77 10*6/uL Normal 3.90-5.20 [facility] Comment on above: Order Comment: Speci men Type: BLOOD SPECIMENOrdering Facility: [facility] Address: [address] [place] [address] Performed By: #### 5 7021-8 ####[facility] [id number] [place] [address] WBC (Bld) [#/Vol] 13.16 10*3/uL High 3.70-11.00 [facility] Comment on above: Order Comment: Speci men Type: BLOOD SPECIMENOrdering Facility: [facility] Address: [address] [place] [address] Performed By: #### 5 7021-8 ####[facility] [id number] [place] [address] CNOVSPon 02-21-2025 CNOVSP Normal [place] CNPNon 02-21-2025 CNPN Normal [place] Comprehensive metabolic 2000 panelon 02-21-2025 Albumin [Mass/Vol] 4.3 g/dL Normal 3.9-4.9 [facility] Comment on above: Order Comment: Speci men Type: BLOOD SPECIMENOrdering Facility: [facility] Address: [address] [place] [address] Performed By: #### 2 4323-8 ####[facility] [id number] [place] [address] ALP [Catalytic activity/Vol] 83 U/L Normal 34-123 [place] Comment on above: Order Comment: Speci men Type: BLOOD SPECIMENOrdering Facility: [facility] Address: [address] [place] [address] Performed By: #### 2 4323-8 ####[facility] [id number] [place] [address] ALT [Catalytic activity/Vol] 49 U/L High 7-38 [place] Comment on above: Order Comment: Speci men Type: BLOOD SPECIMENOrdering Facility: [facility] Address: [address] [place] [address] Performed By: #### 2 4323-8 ####[facility] [id number] [place] [address] Anion gap [Moles/Vol] 17 mmol/L High 8-15 [facility] Comment on above: Order Comment: Speci men Type: BLOOD SPECIMENOrdering Facility: [facility] Address: [address] [place] [address] Performed By: #### 2 4323-8 ####[facility] [id number] [place] [address] AST [Catalytic activity/Vol] 20 U/L Normal 13-35 [place] Comment on above: Order Comment: Speci men Type: BLOOD SPECIMENOrdering Facility: [facility] Address: [address] [place] [address] Performed By: #### 2 4323-8 ####[facility] [id number] [place] [address] Bilirubin [Mass/Vol] 0.3 mg/dL Normal 0.2-1.3 [facility] Comment on above: Order Comment: Speci men Type: BLOOD SPECIMENOrdering Facility: [facility] Address: [address] [place], [place] [address] Performed By: #### 2 4323-8 ####[facility] [id number] [place] [address] Calcium [Mass/Vol] 10.2 mg/dL Normal 8.5-10.2 [facility] Comment on above: Order Comment: Speci men Type: BLOOD SPECIMENOrdering Facility: [facility] Address: [address] [place] [address] Performed By: #### 2 4323-8 ####[facility] [id number] [place] [address] Chloride [Moles/Vol] 101 mmol/L Normal 98-107 [facility] Comment on above: Order Comment: Speci men Type: BLOOD SPECIMENOrdering Facility: [facility] Address: [address] [place] [address] Performed By: #### 2 4323-8 ####[facility] [id number] [place] [address] CO2 [Moles/Vol] 20 mmol/L Low 22-30 [place] Comment on above: Order Comment: Speci men Type: BLOOD SPECIMENOrdering Facility: [facility] Address: [address] [place] [address] Performed By: #### 2 4323-8 ####[facility] [id number] [place] [address] Creatinine [Mass/Vol] 0.49 mg/dL Low 0.58-0.96 [facility] Comment on above: Order Comment: Speci men Type: BLOOD SPECIMENOrdering Facility: [facility] Address: [address] [place] [address] Performed By: #### 2 4323-8 ####[facility] [id number] [place] [address] eGFRcr SerPlBld CKD-EPI 2020 119 mL/min/1.73m??? Normal >=60 [place] Comment on above: Order Comment: Speci men Type: BLOOD SPECIMENOrdering Facility: [facility] Address: [address] [place] [address] Result Comment: Erin mated Glomerular Filtration Rate [...] GFR. Performed By: #### 2 4323-8 ####[facility] [id number] [place] [address] Glucose [Mass/Vol] 248 mg/dL High 74-99 [facility] Comment on above: Order Comment: Semaj cortés Type: BLOOD SPECIMENOrdering Facility: [facility] Address: [address] [place], [place] [address] Result Comment: The [place] Diabetes [employer] (ADA) provides guidance for cutoff [...] Standards of Medical Care in Diabetes 2016, [place] [employer]. Diabetes Care. 2016.39(Suppl 1). Performed By: #### 2 4323-8 ####[facility] [id number] [place] [address] Potassium [Moles/Vol] 4.1 mmol/L Normal 3.7-5.1 [facility] Comment on above: Order Comment: Semaj cortés Type: BLOOD SPECIMENOrdering Facility: [facility] Address: [address] [place] [address] Performed By: #### 2 4323-8 ####[facility] [id number] [place] [address] Protein [Mass/Vol] 7.6 g/dL Normal 6.3-8.0 [facility] Comment on above: Order Comment: Semaj cortés Type: BLOOD SPECIMENOrdering Facility: [facility] Address: [address] [place] [address] Performed By: #### 2 4323-8 ####[facility] [id number] [place] [address] Sodium [Moles/Vol] 138 mmol/L Normal 136-144 [facility] Comment on above: Order Comment: Speci men Type: BLOOD SPECIMENOrdering Facility: [facility] Address: [address] [place] [address] Performed By: #### 2 4323-8 ####[facility] [id number] [place] [address] Urea nitrogen [Mass/Vol] 16 mg/dL Normal 7-21 [place] Comment on above: Order Comment: Speci men Type: BLOOD SPECIMENOrdering Facility: [facility] Address: [address] [place] [address] Performed By: #### 2 4323-8 ####[facility] [id number] [place] [address] Ferritin SerPl-mCncon 2024 Ferritin [Mass/Vol] 83.6 ng/mL Normal 14.7-205.1 [facility] Comment on above: Order Comment: Speci men Type: BLOOD SPECIMENOrdering Facility: [facility] Address: [address] [place] [address] Performed By: #### 5 0190-8, 2284-8, 2132-9, 2276-4 ####[facility] LABCLIA [id number] [place] [address] [place] Folate SerPl-mCncon 02-22-20 25 Folate [Mass/Vol] ng/mL Normal >4.7 [facility] Comment on above: Order Comment: Speci men Type: BLOOD SPECIMENOrdering Facility: [facility] Address: [address] [place] [address] Result Comment: A re sult of > 20 ng/mL is not necessarily indicative of a pathologic or treatable condition: it reflects a limitation of the test methodology.Assay reference range: 4.8 to 24.2 ng/mL. Suitable for detection of folate deficiency.Reference:Folate III (Folate III) [package insert V 1.0 [place]]. [facility], [place], [place]: March 2015. Performed By: #### 5 0190-8, 2284-8, 2132-9, 2276-4 ####[facility]CLIA [id number] [place] [address] [place] IMMUNOGLOBULINS,IGG,IGA,IGMo n 02-21-2025 IgA [Mass/Vol] 184 mg/dL Normal 70-400 [place] Comment on above: Order Comment: Speci men Type: BLOOD SPECIMENOrdering Facility: [facility] Address: [address] [place] [address] Performed By: #### S ERIMM ####[facility]CLIA [id number] [place] [address] [place] IgG [Mass/Vol] 610 mg/dL Low 700-1600 [place] Comment on above: Order Comment: Speci men Type: BLOOD SPECIMENOrdering Facility: [facility] Address: [address] [place] [address] Performed By: #### S ERIMM ####[facility]CLIA [id number] [address] [place] IgM [Mass/Vol] 454 mg/dL High 40-230 [place] Comment on above: Order Comment: Speci men Type: BLOOD SPECIMENOrdering Facility: [facility] Address: [address] [place] [address] Performed By: #### S ERIMM ####[facility] LABIA [id number] [place] [id number] [place] [employer] and [employer] binding capaci ty panelon 02-21-2025 Iron [Mass/Vol] 156 ug/dL Normal 41-186 [place] Comment on above: Order Comment: Speci men Type: BLOOD SPECIMENOrdering Facility: [facility] Address: [address] [place] [address] Performed By: #### 5 0190-8, 2283-8, 2132-01, 2275-08 ####[facility]CL[facility] [id number] [place] [id number] [place] Iron binding capacity [Mass/Vol] 443 ug/dL High 232-386 [place] Comment on above: Order Comment: Speci men Type: BLOOD SPECIMENOrdering Facility: [facility] Address: [address] [place] [address] Performed By: #### 5 0190-8, 2283-8, 2132-01, 2275-08 ####[facility] LABIA [id number] [place] [address] [place] Iron/TIBC [Molar ratio] 35.2 % Normal 15.0-57.0 [place] Comment on above: Order Comment: Speci men Type: BLOOD SPECIMENOrdering Facility: [facility] Address: [address] [place] [address] Performed By: #### 5 0190-8, 2283-8, 2132-01, 2275-08 ####[facility] [facility] [id number] [place] [address] [place] Vit B12 [facility] 10-01-2 025 Cobalamin (Vitamin B12) [Mass/Vol] 694 pg/mL Normal 232-1245 [place] Comment on above: Order Comment: Speci men Type: BLOOD SPECIMENOrdering Facility: [facility] Address: [address] [place], [place] [address] Performed By: #### 5 0190-8, 2283-8, 2132-01, 2275-08 ####[facility] [id number] [place] [id number] [place] CNPNon 02-12-2025 CNPN Normal [place] HCG ( test) Marcelo varela Ql (U)Ordered By: Adolfo Kang on 01-31-2025 HCG ( test) Ql (U) Negative [facility] HCG,Urineon 01-31-2025 Beta HCG ( test) Ql (U) Negative Normal [facility] Comment on above: Result Comment: PERF ORMED BY: [facility] [address] [place] [address] MANAGER TIM FOOTE M.D. Performed By: #### U HCG #### [facility] [address] [place] [id number] [facility] BI US BREAST LIMITED LEFTon 01-26-2025 BI [...] Normal Not Available CNPNon 01-18-2025 CNPN Normal [place] 25([place])D3 [facility] 25-hydroxyvitamin D3 [Mass/Vol] 32.2 ng/mL Normal 31.0-80.0 [place] Comment on above: Order Comment: Speci men Type: BLOOD SPECIMENOrdering Facility: [facility] Address: [address] [place] [address] Performed By: #### 1 989-3 ####[facility] [id number] [address] OF [facility] BLOOD TB SCREENon 01-11-2025 M. tuberculosis tuberculin stim IFN-g Ql (Bld) Negative Normal [place] Comment on above: Order Comment: Speci men Type: BLOOD SPECIMENOrdering Facility: [facility] Address: [address] [place] [address] Performed By: #### I NFTBP ####[facility] [id number] [place] [address] [place] MITOGEN MINUS NIL >9.97 Normal >=0.50 [facility] Comment on above: Order Comment: Speci men Type: BLOOD SPECIMENOrdering Facility: [facility] Address: [address] [place] [address] Performed By: #### I NFTBP ####[facility] [id number] [place] [address] [place] TB GAMMA INTERPRETATION Normal [place] Comment on above: Order Comment: Speci men Type: BLOOD SPECIMENOrdering Facility: [facility] Address: [address] [place] [address] Performed By: #### I NFTBP ####[facility] [id number] [address] [place] TB NIL 0.03 IU/mL Normal <=8.00 [place] Comment on above: Order Comment: Speci men Type: BLOOD SPECIMENOrdering Facility: [facility] Address: [address] [place] [address] Performed By: #### I NFTBP ####[facility] [id number] [address] [place] TB1 AG MINUS NIL 0.01 IU/mL Normal <0.35 [facility] Comment on above: Order Comment: Speci men Type: BLOOD SPECIMENOrdering Facility: [facility] Address: [address] [place] [address] Performed By: #### I NFTBP ####[facility] [id number] [address] TB2 AG MINUS NIL 0.01 IU/mL Normal <0.35 [facility] Comment on above: Order Comment: Speci men Type: BLOOD SPECIMENOrdering Facility: [facility] Address: [address] [place] [address] Performed By: #### I NFTBP ####[facility] [id number] [place] [address] [place] CBC panel Auto (Bld)on 01-11 Erythrocyte distribution width (RBC) [Ratio] 14.5 % 11.5 - 15.0 % [facility] Hematocrit (Bld) [Volume fraction] 41.5 % 36.0 - 46.0 % [facility] Hemoglobin (Bld) [Mass/Vol] 13.8 g/dL 11.5 - 15.5 g/dL [facility] Interpretation and review of laboratory results Abnormal [facility] MCH (RBC) [Entitic mass] 32.2 pg 26.0 - 34.0 pg [facility] MCHC (RBC) [Mass/Vol] 33.3 g/dL 30.5 - 36.0 g/dL [facility] MCV (RBC) [Entitic vol] 96.7 fL 80.0 - 100.0 fL [facility] Nucleated RBC (Bld) [#/Vol] NINF [facility] Platelet mean volume (Bld) [Entitic vol] 10.6 fL 9.0 - 12.7 fL [facility] Platelets (Bld) [#/Vol] 265 10*3/uL [facility] RBC (Bld) [#/Vol] 4.29 10*6/uL 3.90 - 5.2 0 m/uL [facility] WBC (Bld) [#/Vol] 12.61 10*3/uL [facility] Erythrocyte distribution width (RBC) [Ratio] 14.5 % Normal 11.5-15.0 [place] Comment on above: Order Comment: Speci men Type: BLOOD SPECIMENOrdering Facility: [facility] Address: [address] [place] [address] Performed By: #### 5 8410-2 ####[facility] [id number] [place] [address] Hematocrit (Bld) [Volume fraction] 41.5 % Normal 36.0-46.0 [place] Comment on above: Order Comment: Speci men Type: BLOOD SPECIMENOrdering Facility: [facility] Address: [address] [place] [address] Performed By: #### 5 8410-2 ####[facility] [id number] [place] [address] Hemoglobin (Bld) [Mass/Vol] 13.8 g/dL Normal 11.5-15.5 [place] Comment on above: Order Comment: Speci men Type: BLOOD SPECIMENOrdering Facility: [facility] Address: [address] [place] [address] Performed By: #### 5 8410-2 ####[facility] [id number] [place] [address] MCH (RBC) [Entitic mass] 32.2 pg Normal 26.0-34.0 [place] Comment on above: Order Comment: Speci men Type: BLOOD SPECIMENOrdering Facility: [facility] Address: [address] [place] [address] Performed By: #### 5 8410-2 ####[facility] [id number] [place] [address] MCHC (RBC) [Mass/Vol] 33.3 g/dL Normal 30.5-36.0 [facility] Comment on above: Order Comment: Speci men Type: BLOOD SPECIMENOrdering Facility: [facility] Address: [address] [place] [address] Performed By: #### 5 8410-2 ####[facility] [id number] [place] [address] MCV (RBC) [Entitic vol] 96.7 fL Normal 80.0-100.0 [place] Comment on above: Order Comment: Speci men Type: BLOOD SPECIMENOrdering Facility: [facility] Address: [address] [place] [address] Performed By: #### 5 8410-2 ####[facility] [id number] [place] [address] Nucleated RBC (Bld) [#/Vol] 10*3/uL Normal <0.01 [place] Comment on above: Order Comment: Speci men Type: BLOOD SPECIMENOrdering Facility: [facility] Address: [address] [place] [address] Performed By: #### 5 8410-2 ####[facility] [id number] [place] [address] Platelet mean volume (Bld) [Entitic vol] 10.6 fL Normal 9.0-12.7 [place] Comment on above: Order Comment: Speci men Type: BLOOD SPECIMENOrdering Facility: [facility] Address: [address] [place] [address] Performed By: #### 5 8410-2 ####[facility] [id number] [place] [address] Platelets (Bld) [#/Vol] 265 10*3/uL Normal 150-400 [place] Comment on above: Order Comment: Speci men Type: BLOOD SPECIMENOrdering Facility: [facility] Address: [address] [place] [address] Performed By: #### 5 8410-2 ####[facility] [id number] [place] [address] RBC (Bld) [#/Vol] 4.29 10*6/uL Normal 3.90-5.20 [facility] Comment on above: Order Comment: Speci men Type: BLOOD SPECIMENOrdering Facility: [facility] Address: [address] [place] [address] Performed By: #### 5 8410-2 ####[facility] [id number] [place] [address] WBC (Bld) [#/Vol] 12.61 10*3/uL High 3.70-11.00 [facility] Comment on above: Order Comment: Speci men Type: BLOOD SPECIMENOrdering Facility: [facility] Address: [address] [place] [address] Performed By: #### 5 8410-2 ####[facility] [id number] [place] [address] CRP [facility]2025 CRP [Mass/Vol] mg/L Normal <0.9 [place] Comment on above: Order Comment: Speci men Type: BLOOD SPECIMENOrdering Facility: [facility] Address: [address] [place] [address] Performed By: #### 1 988-5, 2132-9 ####[facility] [id number] [place] [id number] [facility] Comprehensive metabolic 2000 panelOrdered By: Josse Merlos on 01-11-2025 Albumin [Mass/Vol] 3.9 g/dL 3.9 - 4.9 g/dL [facility] ALP [Catalytic activity/Vol] 83 U/L 34 - 123 U/L [facility] ALT [Catalytic activity/Vol] 42 U/L High 7 - 38 U/L [facility] Anion gap [Moles/Vol] 10 mmol/L 8 - 15 mmol/L [facility] AST [Catalytic activity/Vol] 22 U/L 13 - 35 U/L [facility] Bilirubin [Mass/Vol] 0.2 mg/dL 0.2 - 1 .3 mg/dL [facility] Calcium [Mass/Vol] 9.7 mg/dL 8.5 - 10. 2 mg/dL [facility] Chloride [Moles/Vol] 103 mmol/L 98 - 10 7 mmol/L [facility] CO2 [Moles/Vol] 23 mmol/L 22 - 30 mmol/L [facility] Creatinine [Mass/Vol] 0.50 mg/dL Low 0.58 - 0.96 mg/dL [facility] GFR/1.73 sq M.predicted among non-blacks MDRD (S/P/Bld) [Vol rate/Area] 119 mL/min/{1.73_m2} - PINF [facility] Comment on above: Estimated Glomerular [...] [facility] Comment on above: The [place] Diabete [place] Association (ADA) provides guidance for [...] Standards of Medical Care in Diabetes 2016, [place] Diabetes Association. Diabetes Care. 2016.39(Suppl 1). Interpretation and review of laboratory results Abnormal [facility] Potassium [Moles/Vol] 4.1 mmol/L 3.7 - 5.1 mmol/L [facility] Protein [Mass/Vol] 6.8 g/dL 6.3 - 8.0 g/dL [facility] Sodium [Moles/Vol] 136 mmol/L 136 - 144 mmol/L [facility] Urea nitrogen [Mass/Vol] 15 mg/dL 7 - 21 mg/dL [facility] Comprehensive metabolic 2000 panelon 01-11-2025 Albumin [Mass/Vol] 3.9 g/dL Normal 3.9-4.9 [facility] Comment on above: Order Comment: Speci men Type: BLOOD SPECIMENOrdering Facility: [facility] Address: [address] [place] [address] Performed By: #### 2 4323-8 ####[facility] [id number] [place] [address] ALP [Catalytic activity/Vol] 83 U/L Normal 34-123 [place] Comment on above: Order Comment: Speci men Type: BLOOD SPECIMENOrdering Facility: [facility] Address: [address] [place] [address] Performed By: #### 2 4323-8 ####[facility] [id number] [place] [address] ALT [Catalytic activity/Vol] 42 U/L High 7-38 [place] Comment on above: Order Comment: Speci men Type: BLOOD SPECIMENOrdering Facility: [facility] Address: [address] [place] [address] Performed By: #### 2 4323-8 ####[facility] [id number] [place] [address] Anion gap [Moles/Vol] 10 mmol/L Normal 8-15 [facility] Comment on above: Order Comment: Speci men Type: BLOOD SPECIMENOrdering Facility: [facility] Address: [address] [place] [address] Performed By: #### 2 4323-8 ####[facility] [id number] [place] [address] AST [Catalytic activity/Vol] 22 U/L Normal 13-35 [place] Comment on above: Order Comment: Speci men Type: BLOOD SPECIMENOrdering Facility: [facility] Address: [address] [place] [address] Performed By: #### 2 4323-8 ####[facility] [id number] [place] [address] Bilirubin [Mass/Vol] 0.2 mg/dL Normal 0.2-1.3 [facility] Comment on above: Order Comment: Speci men Type: BLOOD SPECIMENOrdering Facility: [facility] Address: [address] [place] [address] Performed By: #### 2 4323-8 ####[facility] [id number] [place] [address] Calcium [Mass/Vol] 9.7 mg/dL Normal 8.5-10.2 [facility] Comment on above: Order Comment: Speci men Type: BLOOD SPECIMENOrdering Facility: [facility] Address: [address] [place] [address] Performed By: #### 2 4323-8 ####[facility] [id number] [place] [address] Chloride [Moles/Vol] 103 mmol/L Normal 98-107 [facility] Comment on above: Order Comment: Speci men Type: BLOOD SPECIMENOrdering Facility: [facility] Address: [address] [place] [address] Performed By: #### 2 4323-8 ####[facility] [id number] [place] [address] CO2 [Moles/Vol] 23 mmol/L Normal 22-30 [place] Comment on above: Order Comment: Speci men Type: BLOOD SPECIMENOrdering Facility: [facility] Address: [address] [place] [address] Performed By: #### 2 4323-8 ####[facility] [id number] [place] [address] Creatinine [Mass/Vol] 0.50 mg/dL Low 0.58-0.96 [facility] Comment on above: Order Comment: Semaj cortés Type: BLOOD SPECIMENOrdering Facility: [facility] Address: [address] [place] [address] Performed By: #### 2 4323-8 ####[facility] [id number] [place] [address] eGFRcr SerPlBld CKD-EPI 2020 119 mL/min/1.73m??? Normal >=60 [place] Comment on above: Order Comment: Semaj cortés Type: BLOOD SPECIMENOrdering Facility: [facility] Address: [address] [place] [address] Result Comment: Erin mated Glomerular Filtration Rate [...] GFR. Performed By: #### 2 4323-8 ####[facility] [id number] [place] [address] Glucose [Mass/Vol] 221 mg/dL High 74-99 [facility] Comment on above: Order Comment: Semaj cortés Type: BLOOD SPECIMENOrdering Facility: [facility] Address: [address] [place] [address] Result Comment: The [place] Diabetes Association (ADA) provides guidance for cutoff [...] Standards of Medical Care in Diabetes 2016, [place] Diabetes Association. Diabetes Care. 2016.39(Suppl 1). Performed By: #### 2 4323-8 ####[facility] [id number] [place] [address] Potassium [Moles/Vol] 4.1 mmol/L Normal 3.7-5.1 [facility] Comment on above: Order Comment: Speci men Type: BLOOD SPECIMENOrdering Facility: [facility] Address: [address] [place] [address] Performed By: #### 2 4323-8 ####[facility] [id number] [place] [address] Protein [Mass/Vol] 6.8 g/dL Normal 6.3-8.0 [facility] Comment on above: Order Comment: Speci men Type: BLOOD SPECIMENOrdering Facility: [facility] Address: [address] [place] [address] Performed By: #### 2 4323-8 ####[facility] [id number] [place] [address] Sodium [Moles/Vol] 136 mmol/L Normal 136-144 [facility] Comment on above: Order Comment: Speci men Type: BLOOD SPECIMENOrdering Facility: [facility] Address: [address] [place] [address] Performed By: #### 2 4323-8 ####[facility] [id number] [place] [address] Urea nitrogen [Mass/Vol] 15 mg/dL Normal 7-21 [place] Comment on above: Order Comment: Speci men Type: BLOOD SPECIMENOrdering Facility: [facility] Address: [address] [place] [address] Performed By: #### 2 4323-8 ####[facility] [id number] [place] [address] ESR Westergren method (Bld) [Velocity]on 01-11-2025 ESR (Bld) [Velocity] 34 mm/h High 0-20 [facility] Comment on above: Order Comment: Speci men Type: BLOOD SPECIMENOrdering Facility: [facility] Address: [address] [place] [address] Performed By: #### 4 537-7 ####[facility] [id number] [place] [address] [place] HBV core Ab Ser Qlon 025 HBV core Ab Ql (S) Negative Normal Negative [facility] Comment on above: Order Comment: Speci men Type: BLOOD SPECIMENOrdering Facility: [facility] Address: [address] [place] [address] Result Comment: No e vidence of current or past infection with Hepatitis B virus. Should recent infection be suspected, repeat testing may be considered 3-4 weeks after this draw. Performed By: #### 5 195-3, 26197-2, 39059-8 ####[facility] [id number] [address] OF [facility] HBV surface Ab Ql (S)on 12-23 HBV surface Ab Qn (S) 177.77 mIU/mL Normal [place] Comment on above: Order Comment: Speci men Type: BLOOD SPECIMENOrdering Facility: [facility] Address: [address] [place] [address] Result Comment: <8 m IU/mL: No serological evidence of immunity to Hepatitis B Virus.>/= 8 to <12 mIU/mL: No serological evidence of immunity to Hepatitis B Virus.>/= 12 mIU/mL: Consistent with serological evidence of immunity to Hepatitis B Virus. Performed By: #### 5 195-3, 68484-5, 30329-2 ####[facility] [id number] [place] [id number] [place] HBV surface Ab Ser Qlon 12-23 HBV surface Ab Ql (S) Positive Normal [facility] Comment on above: Order Comment: Speci men Type: BLOOD SPECIMENOrdering Facility: [facility] Address: [address] [place] [address] Result Comment: Cons istent with serological evidence of immunity to Hepatitis B Virus. Performed By: #### 5 195-3, 20317-2, 06302-2 ####[facility] [id number] [place] [address] [place] HBV surface Ag Ser Qlon 12-23 HBV surface Ag Ql (S) Negative Normal Negative [facility] Comment on above: Order Comment: Speci men Type: BLOOD SPECIMENOrdering Facility: [facility] Address: [address] [place] [address] Performed By: #### 5 195-3, 06424-9, 32997-2 ####[facility] [id number] [place] [address] [place] HCV Ab Ser Qlon 01-11-2025 HCV Ab Ql (S) Negative Normal Negative [place] Comment on above: Order Comment: Speci men Type: BLOOD SPECIMENOrdering Facility: [facility] Address: [address] [place] [address] Result Comment: The result suggests no evidence of infection with Hepatitis C virus. Should recent infection be suspected, repeat testing may be considered 4-6 weeks after this draw. Performed By: #### 1 6128-1 ####[facility] [id number] [place] [address] [place] Vit B12 SerPl-mCncon 025 Cobalamin (Vitamin B12) [Mass/Vol] 710 pg/mL Normal 232-1245 [place] Comment on above: Order Comment: Speci men Type: BLOOD SPECIMENOrdering Facility: [facility] Address: [address] [place] [address] Performed By: #### 1 988-5, 2132-9 ####[facility] [id number] [place] [id number] [place] CBC W Auto Differential pane l (Bld)on 11-29-2024 Basophils (Bld) [#/Vol] 0.09 10*3/uL Normal <0.11 [place] Comment on above: Order Comment: Speci men Type: BLOOD SPECIMENOrdering Facility: [facility] Address: [address] [place] [address] Performed By: #### 5 7021-8 ####[facility] [id number] [place] [address] Basophils/100 WBC (Bld) 0.7 % Normal [place] Comment on above: Order Comment: Speci men Type: BLOOD SPECIMENOrdering Facility: [facility] Address: [address] [place] [address] Performed By: #### 5 7021-8 ####[facility] [id number] [place] [address] Differential cell count method Nom (Bld) Auto Normal [place] Comment on above: Order Comment: Speci men Type: BLOOD SPECIMENOrdering Facility: [facility] Address: [address] [place] [address] Performed By: #### 5 7021-8 ####[facility] [id number] [place] [address] Eosinophils (Bld) [#/Vol] 0.09 10*3/uL Normal <0.46 [place] Comment on above: Order Comment: Speci men Type: BLOOD SPECIMENOrdering Facility: [facility] Address: [address] [place] [address] Performed By: #### 5 7021-8 ####[facility] [id number] [place] [address] Eosinophils/100 WBC (Bld) 0.7 % Normal [place] Comment on above: Order Comment: Speci men Type: BLOOD SPECIMENOrdering Facility: [facility] Address: [address] [place] [address] Performed By: #### 5 7021-8 ####[facility] [id number] [place] [address] Erythrocyte distribution width (RBC) [Ratio] 14.8 % Normal 11.5-15.0 [place] Comment on above: Order Comment: Speci men Type: BLOOD SPECIMENOrdering Facility: [facility] Address: [address] [place] [address] Performed By: #### 5 7021-8 ####[facility] [id number] [place] [address] Hematocrit (Bld) [Volume fraction] 42.9 % Normal 36.0-46.0 [place] Comment on above: Order Comment: Speci men Type: BLOOD SPECIMENOrdering Facility: [facility] Address: [address] [place] [address] Performed By: #### 5 7021-8 ####[facility] [id number] [place] [address] Hemoglobin (Bld) [Mass/Vol] 14.0 g/dL Normal 11.5-15.5 [place] Comment on above: Order Comment: Speci men Type: BLOOD SPECIMENOrdering Facility: [facility] Address: [address] [place] [address] Performed By: #### 5 7021-8 ####[facility] [id number] [place] [address] Immature granulocytes (Bld) [#/Vol] 0.18 10*3/uL High <0.10 [place] Comment on above: Order Comment: Speci men Type: BLOOD SPECIMENOrdering Facility: [facility] Address: [address] [place] [address] Performed By: #### 5 7021-8 ####[facility] [id number] [place] [address] Immature granulocytes/100 WBC (Bld) 1.5 % Normal [place] Comment on above: Order Comment: Speci men Type: BLOOD SPECIMENOrdering Facility: [facility] Address: [address] [place] [address] Performed By: #### 5 7021-8 ####[facility] [id number] [place] [address] Lymphocytes (Bld) [#/Vol] 1.99 10*3/uL Normal 1.00-4.00 [place] Comment on above: Order Comment: Speci men Type: BLOOD SPECIMENOrdering Facility: [facility] Address: [address] [place] [address] Performed By: #### 5 7021-8 ####[facility] [id number] [place] [address] Lymphocytes/100 WBC (Bld) 16.4 % Normal [place] Comment on above: Order Comment: Speci men Type: BLOOD SPECIMENOrdering Facility: [facility] Address: [address] [place] [address] Performed By: #### 5 7021-8 ####[facility] [id number] [place] [address] MCH (RBC) [Entitic mass] 31.7 pg Normal 26.0-34.0 [place] Comment on above: Order Comment: Speci men Type: BLOOD SPECIMENOrdering Facility: [facility] Address: [address] [place] [address] Performed By: #### 5 7021-8 ####[facility] [id number] [place] [address] MCHC (RBC) [Mass/Vol] 32.6 g/dL Normal 30.5-36.0 [facility] Comment on above: Order Comment: Speci men Type: BLOOD SPECIMENOrdering Facility: [facility] Address: [address] [place] [address] Performed By: #### 5 7021-8 ####[facility] LABCLIA [id number] [place] [address] MCV (RBC) [Entitic vol] 97.1 fL Normal 80.0-100.0 [place] Comment on above: Order Comment: Speci men Type: BLOOD SPECIMENOrdering Facility: [facility] Address: [address] [place] [address] Performed By: #### 5 7021-8 ####ST. [facility] [id number] [place] [address] Monocytes (Bld) [#/Vol] 0.67 10*3/uL Normal <0.87 [place] Comment on above: Order Comment: Speci men Type: BLOOD SPECIMENOrdering Facility: [facility] Address: [address] [place] [address] Performed By: #### 5 7021-8 ####[facility] [id number] [place] [address] Monocytes/100 WBC (Bld) 5.5 % Normal [place] Comment on above: Order Comment: Speci men Type: BLOOD SPECIMENOrdering Facility: [facility] Address: [address] [place] [address] Performed By: #### 5 7021-8 ####[facility] [id number] [place] [address] Neutrophils (Bld) [#/Vol] 9.15 10*3/uL High 1.45-7.50 [place] Comment on above: Order Comment: Speci men Type: BLOOD SPECIMENOrdering Facility: [facility] Address: [address] [place] [address] Performed By: #### 5 7021-8 ####[facility] [id number] [place] [address] Neutrophils/100 WBC (Bld) 75.2 % Normal [place] Comment on above: Order Comment: Speci men Type: BLOOD SPECIMENOrdering Facility: [facility] Address: [address] [place] [address] Performed By: #### 5 7021-8 ####[facility] [id number] [place] [address] Nucleated RBC (Bld) [#/Vol] 10*3/uL Normal <0.01 [place] Comment on above: Order Comment: Speci men Type: BLOOD SPECIMENOrdering Facility: [facility] Address: [address] [place] [address] Performed By: #### 5 7021-8 ####[facility] [id number] [place] [address] Nucleated RBC/100 WBC (Bld) [Ratio] 0.0 /100 WBC Normal [place] Comment on above: Order Comment: Speci men Type: BLOOD SPECIMENOrdering Facility: [facility] Address: [address] [place] [address] Performed By: #### 5 7021-8 ####[facility] [id number] [place] [address] Platelet mean volume (Bld) [Entitic vol] 9.7 fL Normal 9.0-12.7 [place] Comment on above: Order Comment: Speci men Type: BLOOD SPECIMENOrdering Facility: [facility] Address: [address] [place] [address] Performed By: #### 5 7021-8 ####[facility] [id number] [place] [address] Platelets (Bld) [#/Vol] 281 10*3/uL Normal 150-400 [place] Comment on above: Order Comment: Speci men Type: BLOOD SPECIMENOrdering Facility: [facility] Address: [address] [place] [address] Performed By: #### 5 7021-8 ####[facility] [id number] [place] [address] RBC (Bld) [#/Vol] 4.42 10*6/uL Normal 3.90-5.20 [facility] Comment on above: Order Comment: Speci men Type: BLOOD SPECIMENOrdering Facility: [facility] Address: [address] [place] [address] Performed By: #### 5 7021-8 ####[facility] [id number] [place] [address] WBC (Bld) [#/Vol] 12.17 10*3/uL High 3.70-11.00 [facility] Comment on above: Order Comment: Speci men Type: BLOOD SPECIMENOrdering Facility: [facility] Address: [address] [place] [address] Performed By: #### 5 7021-8 ####[facility] [id number] [place] [address] CNOVSPon 11-29-2024 CNOVSP Normal [place] Comprehensive metabolic 2000 panelon 11-29-2024 Albumin [Mass/Vol] 4.1 g/dL Normal 3.9-4.9 [facility] Comment on above: Order Comment: Speci men Type: BLOOD SPECIMENOrdering Facility: [facility] Address: [address] [place] [address] Performed By: #### 2 4323-8 ####[facility] [id number] [place] [address] ALP [Catalytic activity/Vol] 61 U/L Normal 34-123 [place] Comment on above: Order Comment: Speci men Type: BLOOD SPECIMENOrdering Facility: [facility] Address: [address] [place] [address] Performed By: #### 2 4323-8 ####[facility] [id number] [place] [address] ALT [Catalytic activity/Vol] 39 U/L High 7-38 [place] Comment on above: Order Comment: Speci men Type: BLOOD SPECIMENOrdering Facility: [facility] Address: [address] [place] [address] Performed By: #### 2 4323-8 ####[facility] LABCLIA [id number] [place] [address] Anion gap [Moles/Vol] 13 mmol/L Normal 8-15 [facility] Comment on above: Order Comment: Speci men Type: BLOOD SPECIMENOrdering Facility: [facility] Address: [address] [place] [address] Performed By: #### 2 4323-8 ####[facility]CLIA [id number] [place] [address] AST [Catalytic activity/Vol] 16 U/L Normal 13-35 [place] Comment on above: Order Comment: Speci men Type: BLOOD SPECIMENOrdering Facility: [facility] Address: [address] [place] [address] Performed By: #### 2 4323-8 ####[facility]CLIA [id number] [place] [address] Bilirubin [Mass/Vol] 0.2 mg/dL Normal 0.2-1.3 [facility] Comment on above: Order Comment: Speci men Type: BLOOD SPECIMENOrdering Facility: [facility] Address: [address] [place] [address] Performed By: #### 2 4323-8 ####[facility]CLIA [id number] [place] [address] Calcium [Mass/Vol] 9.7 mg/dL Normal 8.5-10.2 [facility] Comment on above: Order Comment: Speci men Type: BLOOD SPECIMENOrdering Facility: [facility] Address: [address] [place] [address] Performed By: #### 2 4323-8 ####[facility] [id number] [place] [address] Chloride [Moles/Vol] 102 mmol/L Normal 98-107 [facility] Comment on above: Order Comment: Speci men Type: BLOOD SPECIMENOrdering Facility: [facility] Address: [address] [place] [address] Performed By: #### 2 4323-8 ####[facility] [id number] [place] [address] CO2 [Moles/Vol] 23 mmol/L Normal 22-30 [place] Comment on above: Order Comment: Speci men Type: BLOOD SPECIMENOrdering Facility: [facility] Address: [address] [place] [address] Performed By: #### 2 4323-8 ####[facility] [id number] [place] [address] Creatinine [Mass/Vol] 0.58 mg/dL Normal 0.58-0.96 [facility] Comment on above: Order Comment: Speci men Type: BLOOD SPECIMENOrdering Facility: [facility] Address: [address] [place] [address] Performed By: #### 2 4323-8 ####[facility] [id number] [place] [address] Creatinine and Glomerular filtration rate.predicted panel (S/P/Bld) 115 mL/min/1.73m??? Normal >=60 [place] Comment on above: Order Comment: Speci men Type: BLOOD SPECIMENOrdering Facility: [facility] Address: [address] [place] [address] Result Comment: Erin mated Glomerular Filtration Rate [...] GFR. Performed By: #### 2 4323-8 ####[facility] LABIA [id number] [place] [address] Glucose [Mass/Vol] 233 mg/dL High 74-99 [facility] Comment on above: Order Comment: Speci men Type: BLOOD SPECIMENOrdering Facility: [facility] Address: [address] [place], [place] [address] Result Comment: The [place] Diabetes Association (ADA) provides guidance for cutoff [...] Standards of Medical Care in Diabetes 2016, [place] [employer]. Diabetes Care. 2016.39(Suppl 1). Performed By: #### 2 4323-8 ####[facility] [id number] [place] [address] Potassium [Moles/Vol] 4.0 mmol/L Normal 3.7-5.1 [facility] Comment on above: Order Comment: Speci men Type: BLOOD SPECIMENOrdering Facility: [facility] Address: [address] [place] [address] Performed By: #### 2 4323-8 ####[facility] [id number] [place] [address] Protein [Mass/Vol] 7.0 g/dL Normal 6.3-8.0 [facility] Comment on above: Order Comment: Semaj men Type: BLOOD SPECIMENOrdering Facility: [facility] Address: [address] [place] [address] Performed By: #### 2 4323-8 ####[facility]CL[facility] [id number] [place] [address] Sodium [Moles/Vol] 138 mmol/L Normal 136-144 [facility] Comment on above: Order Comment: Speci men Type: BLOOD SPECIMENOrdering Facility: [facility] Address: [address] [place] [address] Performed By: #### 2 4323-8 ####[facility]CL[facility] [id number] [place] [address] Urea nitrogen [Mass/Vol] 16 mg/dL Normal 7-21 [place] Comment on above: Order Comment: Speci men Type: BLOOD SPECIMENOrdering Facility: [facility] Address: [address] [place] [address] Performed By: #### 2 4323-8 ####[facility]CL[facility] [id number] [place] [address] Ferritin SerPl-mCncon 2024 Ferritin [Mass/Vol] 63.6 ng/mL Normal 14.7-205.1 [facility] Comment on above: Order Comment: Speci men Type: BLOOD SPECIMENOrdering Facility: [facility] Address: [address] [place] [address] Performed By: #### 2 284-8, 93450-3, 2276-4, 2132-9 ####[facility] LABCLIA [id number] [place] [address] [place] Folate SerPl-mCncon 11-30-19 25 Folate [Mass/Vol] ng/mL Normal >4.7 [facility] Comment on above: Order Comment: Speci men Type: BLOOD SPECIMENOrdering Facility: [facility] Address: [address] [place] [address] Result Comment: A re sult of > 20 ng/mL is not necessarily indicative of a pathologic or treatable condition: it reflects a limitation of the test methodology.Assay reference range: 4.8 to 24.2 ng/mL. Suitable for detection of folate deficiency.Reference:Folate III (Folate III) [package insert V 1.0 [place]]. [facility], [place], [place]: March 2015. Performed By: #### 2 284-8, 06091-4, 2276-4, 2132-9 ####[facility] LABCLIA [id number] [place] [address] [place] IMMUNOGLOBULINS,IGG,IGA,IGMo n 11-29-2024 IgA [Mass/Vol] 169 mg/dL Normal 70-400 [place] Comment on above: Order Comment: Speci men Type: BLOOD SPECIMENOrdering Facility: [facility] Address: [address] [place] [address] Performed By: #### S ERIMM ####[facility] LABCLIA [id number] [place] [address] [place] IgG [Mass/Vol] 596 mg/dL Low 700-1600 [place] Comment on above: Order Comment: Speci men Type: BLOOD SPECIMENOrdering Facility: [facility] Address: [address] [place] [address] Performed By: #### S ERIMM ####[facility] LABCLIA [id number] [place] [address] [place] IgM [Mass/Vol] 410 mg/dL High 40-230 [place] Comment on above: Order Comment: Speci men Type: BLOOD SPECIMENOrdering Facility: [facility] Address: [address] [place] [address] Performed By: #### S ERIMM ####[facility] LABCLIA [id number] [place] [address] [place] Iron and Iron binding capaci ty panelon 11-29-2024 Iron [Mass/Vol] 154 ug/dL Normal 41-186 [place] Comment on above: Order Comment: Speci men Type: BLOOD SPECIMENOrdering Facility: [facility] Address: [address] [place] [address] Performed By: #### 2 284-8, 29310-4, 6-4, 9 ####[facility] LABIA [id number] [address] [address] [place] Iron binding capacity [Mass/Vol] 363 ug/dL Normal 232-386 [place] Comment on above: Order Comment: Speci men Type: BLOOD SPECIMENOrdering Facility: [facility] Address: [address] [place], [place] [address] Performed By: #### 2 284-8, 96365-8, 2275-4, 2132-01 ####[facility] [id number] [address] [address] [place] Iron/TIBC [Molar ratio] 42.4 % Normal 15.0-57.0 [place] Comment on above: Order Comment: Speci men Type: BLOOD SPECIMENOrdering Facility: [facility] Address: [address] [place] [address] Performed By: #### 2 284-8, 70682-6, 6-4, 2132-01 ####[facility] [id number] [address] [address] [place] Vit B12 SerPl-mCncon 09-2 025 Cobalamin (Vitamin B12) [Mass/Vol] 775 pg/mL Normal 232-1245 [place] Comment on above: Order Comment: Speci men Type: BLOOD SPECIMENOrdering Facility: [facility] Address: [address] [place], [place] [address] Performed By: #### 2 284-8, 24692-1, 2275-4, 9 ####[facility] LABIA [id number] [address] [address] [place] CNPNon 11-20-2024 CNPN Normal [place] CNPNon 11-15-2024 CNPN Normal [place] CNPNon 10-06-2024 CNPN Normal [place] 25(OH)D3 SerPl-mCncon 2024 25-hydroxyvitamin D3 [Mass/Vol] 30.9 ng/mL Low 31.0-80.0 [place] Comment on above: Order Comment: Speci men Type: BLOOD SPECIMENOrdering Facility: [facility] Address: [address] [place] [address] Result Comment: Clas sification of 25 [place] Vitamin D status:Deficiency/Insufficiency: < or = 30 ng/ml.Sufficiency/Optimal Levels: 31-80 ng/mLToxicity: > 100 ng/mL.Test performed by chemiluminescent immunoassay. Performed By: #### 1 989-3 ####[facility] LABCLIA [id number] [place] [address] [place] 25-hydroxyvitamin D3 [Mass/V ol]on 10-02-2024 Interpretation and review of laboratory results Abnormal [facility] The reference range interval was based on an analysis of samples from healthy adults and may not pertain to children from 0-18 years old. [facility] C-REACTIVE PROTEINon 025 CRP [Mass/Vol] mg/dL NINF - 0.9 mg/dL [facility] CBC panel Auto (Bld)on 10-02 Erythrocyte distribution width (RBC) [Ratio] 16.2 % High 11.5 - 15.0 % [facility] Hematocrit (Bld) [Volume fraction] 41.3 % 36.0 - 46.0 % [facility] Hemoglobin (Bld) [Mass/Vol] 13.7 g/dL 11.5 - 15.5 g/dL [facility] Interpretation and review of laboratory results Abnormal [facility] MCH (RBC) [Entitic mass] 31.1 pg 26.0 - 34.0 pg [facility] MCHC (RBC) [Mass/Vol] 33.2 g/dL 30.5 - 36.0 g/dL [facility] MCV (RBC) [Entitic vol] 93.7 fL 80.0 - 100.0 fL [facility] Nucleated RBC (Bld) [#/Vol] NINF [facility] Platelet mean volume (Bld) [Entitic vol] 10.1 fL 9.0 - 12.7 fL [facility] Platelets (Bld) [#/Vol] 265 10*3/uL [facility] RBC (Bld) [#/Vol] 4.41 10*6/uL 3.90 - 5.2 0 m/uL [facility] WBC (Bld) [#/Vol] 10.07 10*3/uL [facility] Erythrocyte distribution width (RBC) [Ratio] 16.2 % High 11.5-15.0 [place] Comment on above: Order Comment: Speci men Type: BLOOD SPECIMENOrdering Facility: [facility] Address: [address] [place] [address] Performed By: #### 5 8410-2 ####[facility] LABCL[facility] [id number] [place] [address] Hematocrit (Bld) [Volume fraction] 41.3 % Normal 36.0-46.0 [place] Comment on above: Order Comment: Speci men Type: BLOOD SPECIMENOrdering Facility: [facility] Address: [address] [place] [address] Performed By: #### 5 8410-2 ####[facility]CL[facility] [id number] [place] [address] Hemoglobin (Bld) [Mass/Vol] 13.7 g/dL Normal 11.5-15.5 [place] Comment on above: Order Comment: Speci men Type: BLOOD SPECIMENOrdering Facility: [facility] Address: [address] [place] [address] Performed By: #### 5 8410-2 ####[facility]CL[facility] [id number] [place] [address] MCH (RBC) [Entitic mass] 31.1 pg Normal 26.0-34.0 [place] Comment on above: Order Comment: Speci men Type: BLOOD SPECIMENOrdering Facility: [facility] Address: [address] [place] [address] Performed By: #### 5 8410-2 ####[facility]CL[facility] [id number] [place] [address] MCHC (RBC) [Mass/Vol] 33.2 g/dL Normal 30.5-36.0 [facility] Comment on above: Order Comment: Speci men Type: BLOOD SPECIMENOrdering Facility: [facility] Address: [address] [place] [address] Performed By: #### 5 8410-2 ####[facility] LABIA [id number] [place] [address] MCV (RBC) [Entitic vol] 93.7 fL Normal 80.0-100.0 [place] Comment on above: Order Comment: Speci men Type: BLOOD SPECIMENOrdering Facility: [facility] Address: [address] [place] [address] Performed By: #### 5 8410-2 ####[facility] LABIA [id number] [place] [address] Nucleated RBC (Bld) [#/Vol] 10*3/uL Normal <0.01 [place] Comment on above: Order Comment: Speci men Type: BLOOD SPECIMENOrdering Facility: [facility] Address: [address] [place] [address] Performed By: #### 5 8410-2 ####[facility] LABIA [id number] [place] [address] Platelet mean volume (Bld) [Entitic vol] 10.1 fL Normal 9.0-12.7 [place] Comment on above: Order Comment: Speci men Type: BLOOD SPECIMENOrdering Facility: [facility] Address: [address] [place] [address] Performed By: #### 5 8410-2 ####[facility] LABIA [id number] [place] [address] Platelets (Bld) [#/Vol] 265 10*3/uL Normal 150-400 [place] Comment on above: Order Comment: Speci men Type: BLOOD SPECIMENOrdering Facility: [facility] Address: [address] [place] [address] Performed By: #### 5 8410-2 ####[facility] LABCLIA [id number] [place] [address] RBC (Bld) [#/Vol] 4.41 10*6/uL Normal 3.90-5.20 [facility] Comment on above: Order Comment: Speci men Type: BLOOD SPECIMENOrdering Facility: [facility] Address: [address] [place] [address] Performed By: #### 5 8410-2 ####[facility] LABCLIA [id number] [place] [address] WBC (Bld) [#/Vol] 10.07 10*3/uL Normal 3.70-11.00 [facility] Comment on above: Order Comment: Speci men Type: BLOOD SPECIMENOrdering Facility: [facility] Address: [address] [place] [address] Performed By: #### 5 8410-2 ####[facility] LABCL[facility] [id number] [place] [address] CRP SerPl-ncon 10-02-2024 CRP [Mass/Vol] mg/L Normal <0.9 [place] Comment on above: Order Comment: Speci men Type: BLOOD SPECIMENOrdering Facility: [facility] Address: [address] [place] [address] Performed By: #### 1 988-5 ####[facility] LABCLIA [id number] [place] [id number] [place] CRP [Mass/Vol]on 10-02-2024 Interpretation and review of laboratory results Normal [facility] Comprehensive metabolic 2000 panelOrdered By: Josse Merlos on 10-02-2024 Albumin [Mass/Vol] 3.9 g/dL 3.9 - 4.9 g/dL [facility] ALP [Catalytic activity/Vol] 61 U/L 34 - 123 U/L [facility] ALT [Catalytic activity/Vol] 41 U/L High 7 - 38 U/L [facility] Anion gap [Moles/Vol] 14 mmol/L 8 - 15 mmol/L [facility] AST [Catalytic activity/Vol] 18 U/L 13 - 35 U/L [facility] Bilirubin [Mass/Vol] 0.2 mg/dL 0.2 - 1 .3 mg/dL [facility] Calcium [Mass/Vol] 9.6 mg/dL 8.5 - 10. 2 mg/dL [facility] Chloride [Moles/Vol] 107 mmol/L 98 - 10 7 mmol/L [facility] CO2 [Moles/Vol] 20 mmol/L Low 22 - 30 mmol/L [facility] Creatinine [Mass/Vol] 0.59 mg/dL 0.58 - 0.96 mg/dL [facility] GFR/1.73 sq M.predicted among non-blacks MDRD (S/P/Bld) [Vol rate/Area] 115 mL/min/{1.73_m2} - PINF [facility] Comment on above: Estimated Glomerular [...] [facility] Comment on above: The [place] Diabete [place] Association (ADA) provides guidance for [...] Standards of Medical Care in Diabetes 2016, [place] Diabetes [employer]. Diabetes Care. 2016.39(Suppl 1). Interpretation and review of laboratory results Abnormal [facility] Potassium [Moles/Vol] 4.1 mmol/L 3.7 - 5.1 mmol/L [facility] Protein [Mass/Vol] 6.8 g/dL 6.3 - 8.0 g/dL [facility] Sodium [Moles/Vol] 141 mmol/L 136 - 144 mmol/L [facility] Urea nitrogen [Mass/Vol] 19 mg/dL 7 - 21 mg/dL [facility] Comprehensive metabolic 2000 panelon 10-02-2024 Albumin [Mass/Vol] 3.9 g/dL Normal 3.9-4.9 [facility] Comment on above: Order Comment: Speci men Type: BLOOD SPECIMENOrdering Facility: [facility] Address: [address] [place] [address] Performed By: #### 2 4323-8 ####[facility] LABCLIA [id number] [place] [address] ALP [Catalytic activity/Vol] 61 U/L Normal 34-123 [place] Comment on above: Order Comment: Speci men Type: BLOOD SPECIMENOrdering Facility: [facility] Address: [address] [place] [address] Performed By: #### 2 4323-8 ####[facility] LABCLIA [id number] [place] [address] ALT [Catalytic activity/Vol] 41 U/L High 7-38 [place] Comment on above: Order Comment: Speci men Type: BLOOD SPECIMENOrdering Facility: [facility] Address: [address] [place] [address] Performed By: #### 2 4323-8 ####[facility] LABCLIA [id number] [place] [address] Anion gap [Moles/Vol] 14 mmol/L Normal 8-15 [facility] Comment on above: Order Comment: Speci men Type: BLOOD SPECIMENOrdering Facility: [facility] Address: [address] [place] [address] Performed By: #### 2 4323-8 ####[facility] LABCLIA [id number] [place] [address] AST [Catalytic activity/Vol] 18 U/L Normal 13-35 [place] Comment on above: Order Comment: Speci men Type: BLOOD SPECIMENOrdering Facility: [facility] Address: [address] [place] [address] Performed By: #### 2 4323-8 ####[facility] LABCL[facility] [id number] [place] [address] Bilirubin [Mass/Vol] 0.2 mg/dL Normal 0.2-1.3 [facility] Comment on above: Order Comment: Speci men Type: BLOOD SPECIMENOrdering Facility: [facility] Address: [address] [place] [address] Performed By: #### 2 4323-8 ####[facility] LABCLIA [id number] [place] [address] Calcium [Mass/Vol] 9.6 mg/dL Normal 8.5-10.2 [facility] Comment on above: Order Comment: Speci men Type: BLOOD SPECIMENOrdering Facility: [facility] Address: [address] [place] [address] Performed By: #### 2 4323-8 ####[facility] LABCLIA [id number] [place] [address] Chloride [Moles/Vol] 107 mmol/L Normal 98-107 [facility] Comment on above: Order Comment: Speci men Type: BLOOD SPECIMENOrdering Facility: [facility] Address: [address] [place] [address] Performed By: #### 2 4323-8 ####[facility] LABCL[facility] [id number] [place] [address] CO2 [Moles/Vol] 20 mmol/L Low 22-30 [place] Comment on above: Order Comment: Speci men Type: BLOOD SPECIMENOrdering Facility: [facility] Address: [address] [id number] Performed By: #### 2 4323-8 ####[facility] LABCLIA [id number] [place] [address] Creatinine [Mass/Vol] 0.59 mg/dL Normal 0.58-0.96 [facility] Comment on above: Order Comment: Speci men Type: BLOOD SPECIMENOrdering Facility: [facility] Address: [address] [place] [address] Performed By: #### 2 4323-8 ####[facility] LABCLIA [id number] [place] [address] Creatinine and Glomerular filtration rate.predicted panel (S/P/Bld) 115 mL/min/1.73m??? Normal >=60 [place] Comment on above: Order Comment: Speci men Type: BLOOD SPECIMENOrdering Facility: [facility] Address: [address] [place] [address] Result Comment: Erin mated Glomerular Filtration Rate [...] GFR. Performed By: #### 2 4323-8 ####[facility] LABCLIA [id number] [place] [address] Glucose [Mass/Vol] 216 mg/dL High 74-99 [facility] Comment on above: Order Comment: Speci men Type: BLOOD SPECIMENOrdering Facility: [facility] Address: [address] [id number] Result Comment: The [place] Diabetes Association (ADA) provides guidance for cutoff [...] Standards of Medical Care in Diabetes 2016, [place] [employer]. Diabetes Care. 2016.39(Suppl 1). Performed By: #### 2 4323-8 ####[facility] LABCLIA [id number] [place] [address] Potassium [Moles/Vol] 4.1 mmol/L Normal 3.7-5.1 [facility] Comment on above: Order Comment: Speci men Type: BLOOD SPECIMENOrdering Facility: [facility] Address: [address] [place] [address] Performed By: #### 2 4323-8 ####[facility] LABCLIA [id number] [place] [address] Protein [Mass/Vol] 6.8 g/dL Normal 6.3-8.0 [facility] Comment on above: Order Comment: Speci men Type: BLOOD SPECIMENOrdering Facility: [facility] Address: [address] [place] [address] Performed By: #### 2 4323-8 ####[facility] LABCLIA [id number] [place] [address] Sodium [Moles/Vol] 141 mmol/L Normal 136-144 [facility] Comment on above: Order Comment: Speci men Type: BLOOD SPECIMENOrdering Facility: [facility] Address: [address] [place] [address] Performed By: #### 2 4323-8 ####[facility] LABCLIA [id number] [place] [address] Urea nitrogen [Mass/Vol] 19 mg/dL Normal 7-21 [place] Comment on above: Order Comment: Speci men Type: BLOOD SPECIMENOrdering Facility: [facility] Address: [address] [place], [place] [address] [address] Performed By: #### 2 4323-8 ####[facility] LABCLIA [id number] [place] [address] ESR Westergren method (Bld) [Velocity]on 10-02-2024 ESR (Bld) [Velocity] 28 mm/h High [facility] Interpretation and review of laboratory results Abnormal [facility] ESR (Bld) [Velocity] 28 mm/h High 0-20 [facility] Comment on above: Order Comment: Speci men Type: BLOOD SPECIMENOrdering Facility: [facility] Address: [address] [place] [address] Performed By: #### 4 537-7 ####[facility] LABCLIA [id number] [place] [id number] [place] VITAMIN D 25 HYDROXYon 10-02 25-hydroxyvitamin D3 [Mass/Vol] 30.9 ng/mL Low 31.0 - 80.0 ng/mL [facility] Comment on above: Classification of 25 [place] Vitamin D status: Deficiency/Insufficiency: < or = 30 ng/ml. Sufficiency/Optimal Levels: 31-80 ng/mL Toxicity: > 100 ng/mL. Test performed by chemiluminescent immunoassay. DNA EXTRACTION BLOODOrdered By: Dominga Araujo on 09-20-2024 CONCENTRATION (NG/UL) 189.3 ng/ul [facility] Total Yield 94.65 ug [facility] Comment on above: Specimens will be av ailable for 3 years from date of collection. To order testing on this specimen for [facility] patients, please place an [facility] order for DNA and RNA for Clinical Testing (SQNUCADD). To order for patients outside of the [facility] system, please request DNA and RNA for Clinical Testing, order code [email or web address]. If additional paperwork is required for testing, please email completed forms to . VOLUME (UL) OF DNA 500 uL [facility] CNOVon 09-19-2024 CNOV Normal [place] DNA EXTRACTION BLOODon 09-19 CONCENTRATION (NG/UL) 189.3 ng/ul Normal [facility] Comment on above: Order Comment: Speci men Type: BLOOD SPECIMENOrdering Facility: [facility] Address: [address] [place] [address] Performed By: #### N UCBLD ####[facility] LIMSCLIA [id number] [place] [address] [place] TOTAL YIELD 94.65 ug Normal [place] Comment on above: Order Comment: Speci men Type: BLOOD SPECIMENOrdering Facility: [facility] Address: [address] [place] [address] Result Comment: Spec imens will be available for 3 years from date of collection. To order testing on this specimen for [facility] patients, please place an [facility] order for DNA and RNA for Clinical Testing (SQNUCADD). To order for patients outside of the [facility] system, please request DNA and RNA for Clinical Testing, order code NUCADD.If additional paperwork is required for testing, please email completed forms to . Performed By: #### N UCBLD ####[facility] LIMSCLIA [id number] [place] [address] [place] VOLUME (UL) OF DNA 500 uL Normal [facility] Comment on above: Order Comment: Speci men Type: BLOOD SPECIMENOrdering Facility: [facility] Address: [address] [place] [address] Performed By: #### N UCBLD ####[facility] LIMSCLIA [id number] [place] [address] [place] CNPNon 09-18-2024 CNPN Normal [place] CNPNon 09-13-2024 CNPN Normal [place] CNOVSPon 09-06-2024 CNOVSP Normal [place] CNPNon 09-06-2024 CNPN Normal [place] IMMUNOGLOBULINS,IGG,IGA,IGMo n 09-06-2024 IgA [Mass/Vol] 163 mg/dL Normal 70-400 [place] Comment on above: Order Comment: Speci men Type: BLOOD SPECIMENOrdering Facility: [facility] Address: [address] [place] [address] Performed By: #### S ERIMM ####[facility] LABCLIA [id number] [place] [address] [place] IgG [Mass/Vol] 599 mg/dL Low 700-1600 [place] Comment on above: Order Comment: Speci men Type: BLOOD SPECIMENOrdering Facility: [facility] Address: [address] [place] [address] Performed By: #### S ERIMM ####[facility] LABCLIA [id number] [place] [address] [place] IgM [Mass/Vol] 387 mg/dL High 40-230 [place] Comment on above: Order Comment: Speci men Type: BLOOD SPECIMENOrdering Facility: [facility] Address: [address] [place] [address] Performed By: #### S ERIMM ####[facility] LABCLIA [id number] [place] [address] [place] Laboratory - Chemistry and C hemistry - challengeon 09-06-2024 IgA [Mass/Vol] 163 mg/dL 70 - 400 mg/dL [facility] IgG [Mass/Vol] 599 mg/dL Low 700 - 1600 mg/dL [facility] IgM [Mass/Vol] 387 mg/dL High 40 - 230 mg/dL [facility] No Panel Informationon 09-06 Interpretation and review of laboratory results Abnormal [facility] CBC W Auto Differential pane l (Bld)on 08-29-2024 Basophils (Bld) [#/Vol] 0.06 10*3/uL Normal <0.11 [place] Comment on above: Order Comment: Speci men Type: BLOOD SPECIMENOrdering Facility: [facility] Address: [address] [place] [address] Performed By: #### 5 7021-8 ####[facility] LABCLIA [id number] [place] [address] Basophils/100 WBC (Bld) 0.5 % Normal [place] Comment on above: Order Comment: Speci men Type: BLOOD SPECIMENOrdering Facility: [facility] Address: [address] [place] [address] Performed By: #### 5 7021-8 ####[facility] LABCLIA [id number] [place] [address] Differential cell count method Nom (Bld) Auto Normal [place] Comment on above: Order Comment: Speci men Type: BLOOD SPECIMENOrdering Facility: [facility] Address: [address] [place] [address] Performed By: #### 5 7021-8 ####[facility] LABCLIA [id number] [place] [address] Eosinophils (Bld) [#/Vol] 0.08 10*3/uL Normal <0.46 [place] Comment on above: Order Comment: Speci men Type: BLOOD SPECIMENOrdering Facility: [facility] Address: [address] [place] [address] Performed By: #### 5 7021-8 ####[facility] LABCLIA [id number] [place] [address] Eosinophils/100 WBC (Bld) 0.6 % Normal [place] Comment on above: Order Comment: Speci men Type: BLOOD SPECIMENOrdering Facility: [facility] Address: [address] [place] [address] Performed By: #### 5 7021-8 ####[facility] LABCLIA [id number] [place] [address] Erythrocyte distribution width (RBC) [Ratio] 16.0 % High 11.5-15.0 [place] Comment on above: Order Comment: Speci men Type: BLOOD SPECIMENOrdering Facility: [facility] Address: [address] [place] [address] Performed By: #### 5 7021-8 ####[facility] LABCLIA [id number] [place] [address] Hematocrit (Bld) [Volume fraction] 42.9 % Normal 36.0-46.0 [place] Comment on above: Order Comment: Speci men Type: BLOOD SPECIMENOrdering Facility: [facility] Address: [address] [place] [address] Performed By: #### 5 7021-8 ####[facility] LABCLIA [id number] [place] [address] Hemoglobin (Bld) [Mass/Vol] 13.8 g/dL Normal 11.5-15.5 [place] Comment on above: Order Comment: Speci men Type: BLOOD SPECIMENOrdering Facility: [facility] Address: [address] [place] [address] Performed By: #### 5 7021-8 ####[facility] LABCLIA [id number] [place] [address] Immature granulocytes (Bld) [#/Vol] 0.23 10*3/uL High <0.10 [place] Comment on above: Order Comment: Speci men Type: BLOOD SPECIMENOrdering Facility: [facility] Address: [address] [place] [address] Performed By: #### 5 7021-8 ####[facility] LABCLIA [id number] [place] [address] Immature granulocytes/100 WBC (Bld) 1.8 % Normal [place] Comment on above: Order Comment: Speci men Type: BLOOD SPECIMENOrdering Facility: [facility] Address: [address] [place] [address] Performed By: #### 5 7021-8 ####[facility] LABCLIA [id number] [place] [address] Lymphocytes (Bld) [#/Vol] 2.07 10*3/uL Normal 1.00-4.00 [place] Comment on above: Order Comment: Speci men Type: BLOOD SPECIMENOrdering Facility: [facility] Address: [address] [place] [address] Performed By: #### 5 7021-8 ####[facility] LABCLIA [id number] [place] [address] Lymphocytes/100 WBC (Bld) 15.8 % Normal [place] Comment on above: Order Comment: Speci men Type: BLOOD SPECIMENOrdering Facility: [facility] Address: [address] [place] [address] Performed By: #### 5 7021-8 ####[facility] LABCLIA [id number] [place] [address] MCH (RBC) [Entitic mass] 30.2 pg Normal 26.0-34.0 [place] Comment on above: Order Comment: Speci men Type: BLOOD SPECIMENOrdering Facility: [facility] Address: [address] [place] [address] Performed By: #### 5 7021-8 ####[facility] LABCLIA [id number] [place] [address] MCHC (RBC) [Mass/Vol] 32.2 g/dL Normal 30.5-36.0 [facility] Comment on above: Order Comment: Speci men Type: BLOOD SPECIMENOrdering Facility: [facility] Address: [address] [place] [address] Performed By: #### 5 7021-8 ####[facility] LABCLIA [id number] [place] [address] MCV (RBC) [Entitic vol] 93.9 fL Normal 80.0-100.0 [place] Comment on above: Order Comment: Speci men Type: BLOOD SPECIMENOrdering Facility: [facility] Address: [address] [place] [address] Performed By: #### 5 7021-8 ####[facility] LABCLIA [id number] [place] [address] Monocytes (Bld) [#/Vol] 0.86 10*3/uL Normal <0.87 [place] Comment on above: Order Comment: Speci men Type: BLOOD SPECIMENOrdering Facility: [facility] Address: [address] [place] [address] Performed By: #### 5 7021-8 ####[facility] LABCLIA [id number] [place] [address] Monocytes/100 WBC (Bld) 6.6 % Normal [place] Comment on above: Order Comment: Speci men Type: BLOOD SPECIMENOrdering Facility: [facility] Address: [address] [place] [address] Performed By: #### 5 7021-8 ####[facility] LABCLIA [id number] [place] [address] Neutrophils (Bld) [#/Vol] 9.82 10*3/uL High 1.45-7.50 [place] Comment on above: Order Comment: Speci men Type: BLOOD SPECIMENOrdering Facility: [facility] Address: [address] [place] [address] Performed By: #### 5 7021-8 ####[facility] LABCLIA [id number] [place] [address] Neutrophils/100 WBC (Bld) 74.7 % Normal [place] Comment on above: Order Comment: Speci men Type: BLOOD SPECIMENOrdering Facility: [facility] Address: [address] [place] [address] Performed By: #### 5 7021-8 ####[facility] LABIA [id number] [place] [address] Nucleated RBC (Bld) [#/Vol] 10*3/uL Normal <0.01 [place] Comment on above: Order Comment: Speci men Type: BLOOD SPECIMENOrdering Facility: [facility] Address: [address] [place] [address] Performed By: #### 5 7021-8 ####[facility] LABCLIA [id number] [place] [address] Nucleated RBC/100 WBC (Bld) [Ratio] 0.0 /100 WBC Normal [place] Comment on above: Order Comment: Speci men Type: BLOOD SPECIMENOrdering Facility: [facility] Address: [address] [place] [address] Performed By: #### 5 7021-8 ####[facility] LABCLIA [id number] [place] [address] Platelet mean volume (Bld) [Entitic vol] 9.5 fL Normal 9.0-12.7 [place] Comment on above: Order Comment: Speci men Type: BLOOD SPECIMENOrdering Facility: [facility] Address: [address] [place] [address] Performed By: #### 5 7021-8 ####[facility] LABCLIA [id number] [place] [address] Platelets (Bld) [#/Vol] 291 10*3/uL Normal 150-400 [place] Comment on above: Order Comment: Speci men Type: BLOOD SPECIMENOrdering Facility: [facility] Address: [address] [place] [address] Performed By: #### 5 7021-8 ####[facility] LABCLIA [id number] [place] [address] RBC (Bld) [#/Vol] 4.57 10*6/uL Normal 3.90-5.20 [facility] Comment on above: Order Comment: Speci men Type: BLOOD SPECIMENOrdering Facility: [facility] Address: [address] [place] [address] Performed By: #### 5 7021-8 ####[facility] LABCLIA [id number] [place] [address] WBC (Bld) [#/Vol] 13.12 10*3/uL High 3.70-11.00 [facility] Comment on above: Order Comment: Speci men Type: BLOOD SPECIMENOrdering Facility: [facility] Address: [address] [place] [address] Performed By: #### 5 7021-8 ####[facility] LABCLIA [id number] [place] [address] Comprehensive metabolic 2000 panelon 08-29-2024 Albumin [Mass/Vol] 4.2 g/dL Normal 3.9-4.9 [facility] Comment on above: Order Comment: Speci men Type: BLOOD SPECIMENOrdering Facility: [facility] Address: [address] [place] [address] Performed By: #### 2 4323-8 ####[facility] LABCLIA [id number] [place] [address] ALP [Catalytic activity/Vol] 69 U/L Normal 34-123 [place] Comment on above: Order Comment: Speci men Type: BLOOD SPECIMENOrdering Facility: [facility] Address: [address] [place] [address] Performed By: #### 2 4323-8 ####[facility] LABCLIA [id number] [place] [address] ALT [Catalytic activity/Vol] 38 U/L Normal 7-38 [place] Comment on above: Order Comment: Speci men Type: BLOOD SPECIMENOrdering Facility: [facility] Address: [address] [place] [address] Performed By: #### 2 4323-8 ####[facility] LABCLIA [id number] [place] [address] Anion gap [Moles/Vol] 12 mmol/L Normal 8-15 [facility] Comment on above: Order Comment: Speci men Type: BLOOD SPECIMENOrdering Facility: [facility] Address: [address] [place] [address] Performed By: #### 2 4323-8 ####[facility] LABCLIA [id number] [place] [address] AST [Catalytic activity/Vol] 15 U/L Normal 13-35 [place] Comment on above: Order Comment: Speci men Type: BLOOD SPECIMENOrdering Facility: [facility] Address: [address] [place] [address] Performed By: #### 2 4323-8 ####[facility] LABCLIA [id number] [place] [address] Bilirubin [Mass/Vol] 0.2 mg/dL Normal 0.2-1.3 [facility] Comment on above: Order Comment: Speci men Type: BLOOD SPECIMENOrdering Facility: [facility] Address: [address] [place] [address] Performed By: #### 2 4323-8 ####[facility] LABCLIA [id number] [place] [address] Calcium [Mass/Vol] 10.3 mg/dL High 8.5-10.2 [facility] Comment on above: Order Comment: Speci men Type: BLOOD SPECIMENOrdering Facility: [facility] Address: [address] [place] [address] Performed By: #### 2 4323-8 ####[facility] LABCLIA [id number] [place] [address] Chloride [Moles/Vol] 101 mmol/L Normal 98-107 [facility] Comment on above: Order Comment: Speci men Type: BLOOD SPECIMENOrdering Facility: [facility] Address: [address] [place] [address] Performed By: #### 2 4323-8 ####[facility] LABCLIA [id number] [place] [address] CO2 [Moles/Vol] 26 mmol/L Normal 22-30 [place] Comment on above: Order Comment: Speci men Type: BLOOD SPECIMENOrdering Facility: [facility] Address: [address] [id number] Performed By: #### 2 4323-8 ####[facility] LABCLIA [id number] [place] [address] Creatinine [Mass/Vol] 0.64 mg/dL Normal 0.58-0.96 [facility] Comment on above: Order Comment: Speci men Type: BLOOD SPECIMENOrdering Facility: [facility] Address: [address] [place] [address] Performed By: #### 2 4323-8 ####[facility] LABCLIA [id number] [place] [address] Creatinine and Glomerular filtration rate.predicted panel (S/P/Bld) 113 mL/min/1.73m??? Normal >=60 [place] Comment on above: Order Comment: Speci men Type: BLOOD SPECIMENOrdering Facility: [facility] Address: [address] [place] [address] Result Comment: Erin mated Glomerular Filtration Rate [...] GFR. Performed By: #### 2 4323-8 ####[facility] LABIA [id number] [place] [address] Glucose [Mass/Vol] 139 mg/dL High 74-99 [facility] Comment on above: Order Comment: Speci men Type: BLOOD SPECIMENOrdering Facility: [facility] Address: [address] [place], [place] [address] Result Comment: The [place] Diabetes [employer] (ADA) provides guidance for cutoff [...] Standards of Medical Care in Diabetes 2016, [place] [employer]. Diabetes Care. 2016.39(Suppl 1). Performed By: #### 2 4323-8 ####[facility] LABCLIA [id number] [place] [address] Potassium [Moles/Vol] 4.4 mmol/L Normal 3.7-5.1 [facility] Comment on above: Order Comment: Speci men Type: BLOOD SPECIMENOrdering Facility: [facility] Address: [address] [place] [address] Performed By: #### 2 4323-8 ####[facility] LABCLIA [id number] [place] [address] Protein [Mass/Vol] 7.1 g/dL Normal 6.3-8.0 [facility] Comment on above: Order Comment: Speci men Type: BLOOD SPECIMENOrdering Facility: [facility] Address: [address] [place] [address] Performed By: #### 2 4323-8 ####[facility] LABCLIA [id number] [place] [address] Sodium [Moles/Vol] 139 mmol/L Normal 136-144 [facility] Comment on above: Order Comment: Speci men Type: BLOOD SPECIMENOrdering Facility: [facility] Address: [address] [place] [address] Performed By: #### 2 4323-8 ####[facility] LABCLIA [id number] [place] [address] Urea nitrogen [Mass/Vol] 18 mg/dL Normal 7-21 [place] Comment on above: Order Comment: Speci men Type: BLOOD SPECIMENOrdering Facility: [facility] Address: [address] [place], [place] [address] Performed By: #### 2 4323-8 ####[facility] LABCLIA [id number] [place] [address] Ferritin SerPl-mCncon 2024 Ferritin [Mass/Vol] 43.1 ng/mL Normal 14.7-205.1 [facility] Comment on above: Order Comment: Speci men Type: BLOOD SPECIMENOrdering Facility: [facility] Address: [address] [place] [address] Performed By: #### 2 132-9, 2284-8, 2276-4, 53928-7 ####[facility] LABCLIA [id number] [place] [address] [place] Folate SerPl-mCncon 08-30-19 25 Folate [Mass/Vol] ng/mL Normal >4.7 [facility] Comment on above: Order Comment: Speci men Type: BLOOD SPECIMENOrdering Facility: [facility] Address: [address] [place] [address] Result Comment: A re sult of > 20 ng/mL is not necessarily indicative of a pathologic or treatable condition: it reflects a limitation of the test methodology.Assay reference range: 4.8 to 24.2 ng/mL. Suitable for detection of folate deficiency.Reference:Folate III (Folate III) [package insert V 1.0 [place]]. [facility], [place], [place]: March 2015. Performed By: #### 2 132-9, 2284-8, 2276-4, 01308-5 ####[facility] LABIA [id number] [place] [id number] [place] IgG SerPl-mCncon 08-29-2024 IgG [Mass/Vol] 729 mg/dL Normal 700-1600 [place] Comment on above: Order Comment: Speci men Type: BLOOD SPECIMENOrdering Facility: [facility] Address: [address] [place] [address] Performed By: #### 2 465-3 ####[facility] LABIA [id number] [address] [address] [place] Iron and Iron binding capaci ty panelon 08-29-2024 Iron [Mass/Vol] 80 ug/dL Normal 41-186 [place] Comment on above: Order Comment: Speci men Type: BLOOD SPECIMENOrdering Facility: [facility] Address: [address] [place] [address] Performed By: #### 2 132-9, 2284-8, 2276-4, 26181-0 ####[facility] LABIA [id number] [place] [id number] [place] Iron binding capacity [Mass/Vol] 416 ug/dL High 232-386 [place] Comment on above: Order Comment: Speci men Type: BLOOD SPECIMENOrdering Facility: [facility] Address: [address] [place] [address] Performed By: #### 2 132-9, 2284-8, 2276-4, 49169-0 ####[facility] LABIA [id number] [place] [id number] [place] Iron/TIBC [Molar ratio] 19.2 % Normal 15.0-57.0 [place] Comment on above: Order Comment: Speci men Type: BLOOD SPECIMENOrdering Facility: [facility] Address: [address] [place] [address] Performed By: #### 2 132-9, 2284-8, 2276-4, 44127-1 ####[facility] LABIA [id number] [place] [id number] [place] Vit B12 SerPl-mCncon 025 Cobalamin (Vitamin B12) [Mass/Vol] 555 pg/mL Normal 232-1245 [place] Comment on above: Order Comment: Speci men Type: BLOOD SPECIMENOrdering Facility: [facility] Address: [address] [place] [address] Performed By: #### 2 132-9, 2284-8, 2276-4, 46575-7 ####[facility] LABCLIA [id number] [place] [address] [place] CNPNon 08-28-2024 CNPN Normal [place] [address] Ultrasound Report Signed Patient: ARIADNA HALEY MR#: [id number] : 1980 Acct:[id number] Age/Sex: 43 / F ADM Date: 08/24/24 Loc: US Attending Dr: Gordo Barfield M.D. Ordering Physician: Gordo Barfield M.D. Date of Service: 08/24/24 Procedure(s): US thyroid Accession Number(s): [id number] cc: GAY ENCISO ; Gordo Barfield M.D. [place] [id number] Patient Name: ARIADNA HALEY MRN: [id number]:[id number] date: 1980 Sex: F Assigned Patient Location: [place] Current Patient Location: [place] Accession/Order Number: [id number] Exam Date: 08/24/2024 09:09 Report Date: 08/24/2024 [...] this was thought to be cystic. The registered mail clerk today considered it solid and it was given TI-RADS 4 classification. No internal color flow is shown. Size has not significantly changed when measuring in a comparable manner. No other nodularity is seen. US/US thyroid IMPRESSION: SIMILAR SMALL LEFT THYROID NODULE. FOLLOW-UP IN ONE YEAR IS SUGGESTED. Impression dictated by: Simin Nelson M.D.08/24/2024 9:22 AM Dictation Location: [place] [address] Electronically authenticated by: [id number] Y Date: 08/24/2024 09:22 Dictated By: Simin Nelson M.D. Signed By: 08/24/24923 DD/ 1 TD/TT: Feather Shaper: [facility] Radiology, Radiologist, MD - 08/24/2024 [place] [address] Ultrasound Report Signed Patient: ARIADNA HALEY MR#: [id number] : 1980 Acct:[id number] Age/Sex: 43 / F ADM Date: 08/24/24 Loc: US Attending Dr: Gordo Barfield M.D. Ordering Physician: Gordo Barfield M.D. Date of Service: 08/24/24 Procedure(s): US thyroid Accession Number(s): [id number] cc: GAY ENCISO ; Gordo Barfield M.D. The [place] [id number] Patient Name: ARIADNA HALEY MRN: [facility]:[id number] date: 1980 Sex: F Assigned Patient Location: US Current Patient Location: [place] Accession/Order Number: [id number] Exam Date: 08/24/2024 09:09 Report Date: 08/24/2024 [...] this was thought to be cystic. The registered mail clerk today considered it solid and it was given TI-RADS 4 classification. No internal color flow is shown. Size has not significantly changed when measuring in a comparable manner. No other nodularity is seen. US/US thyroid IMPRESSION: SIMILAR SMALL LEFT THYROID NODULE. FOLLOW-UP IN ONE YEAR IS SUGGESTED. Impression dictated by: Simin Nelson M.D.08/24/2024 9:22 AM Dictation Location: [place] [address] Electronically authenticated by: [id number] Y Date: 08/24/2024 09:22 Dictated By: Simin Nelson M.D. Signed By: 08/24/24923 DD/ 1 TD/TT: Feather Shaper: [facility] Radiology Study observation (narrative) [facility] US Thyroid glandOrdered By: Radiologist Radiology on 08-24-2024 [facility] Work Phone: CNPNon 08-08-2024 CNPN Normal [place] HCG ( test) IA.rapi d Ql (U)Ordered By: Adolfo Kang on 07-19-2024 HCG ( test) Ql (U) Urine human chorionic gonadotropin (hCG) detection by immunoassay [facility] HCG,Urineon 07-19-2024 Beta HCG ( test) Ql (U) Negative Normal [facility] Comment on above: Result Comment: PERF ORMED BY: [place] [address] [address] MANAGER HAYDEN LLAMAS M.D. Performed By: #### U HCG #### [address] CNOVon 07-12-2024 CNOV Normal [place] CNPNon 07-09-2024 CNPN Normal [place] 25(OH)D3 SerPl-mCncon 2024 25-hydroxyvitamin D3 [Mass/Vol] 28.5 ng/mL Low 31.0-80.0 [place] Comment on above: Order Comment: Speci men Type: BLOOD SPECIMENOrdering Facility: [facility] Address: [address] [place] [address] Result Comment: Clas sification of 25 [place] Vitamin D status:Deficiency/Insufficiency: < or = 30 ng/ml.Sufficiency/Optimal Levels: 31-80 ng/mLToxicity: > 100 ng/mL.Test performed by chemiluminescent immunoassay. Performed By: #### 1 989-3 ####[facility] LABCLIA [id number] [address] [place] CBC panel Auto (Bld)on 06-30 Erythrocyte distribution width (RBC) [Ratio] 14.3 % Normal 11.5-15.0 [place] Comment on above: Order Comment: Speci men Type: BLOOD SPECIMENOrdering Facility: [facility] Address: [address] [place] [address] Performed By: #### 5 8410-2 ####[facility] LABIA [id number] [address] STATES OF [facility] Hematocrit (Bld) [Volume fraction] 41.3 % Normal 36.0-46.0 [place] Comment on above: Order Comment: Speci men Type: BLOOD SPECIMENOrdering Facility: [facility] Address: [address] [place] [address] Performed By: #### 5 8410-2 ####[facility] LABIA [id number] [place] [address] [place] Hemoglobin (Bld) [Mass/Vol] 13.5 g/dL Normal 11.5-15.5 [place] Comment on above: Order Comment: Speci men Type: BLOOD SPECIMENOrdering Facility: [facility] Address: [address] [place] [address] Performed By: #### 5 8410-2 ####[facility] LABIA [id number] [place] [address] [place] MCH (RBC) [Entitic mass] 30.4 pg Normal 26.0-34.0 [place] Comment on above: Order Comment: Speci men Type: BLOOD SPECIMENOrdering Facility: [facility] Address: [address] [place] [address] Performed By: #### 5 8410-2 ####[facility] LABIA [id number] [place] [address] [place] MCHC (RBC) [Mass/Vol] 32.7 g/dL Normal 30.5-36.0 [facility] Comment on above: Order Comment: Speci men Type: BLOOD SPECIMENOrdering Facility: [facility] Address: [address] [place] [address] Performed By: #### 5 8410-2 ####[facility] LABIA [id number] [place] [address] [place] MCV (RBC) [Entitic vol] 93.0 fL Normal 80.0-100.0 [place] Comment on above: Order Comment: Speci men Type: BLOOD SPECIMENOrdering Facility: [facility] Address: [address] [place] [address] Performed By: #### 5 8410-2 ####[facility] LABIA [id number] [place] [address] [place] Nucleated RBC (Bld) [#/Vol] 10*3/uL Normal <0.01 [place] Comment on above: Order Comment: Speci men Type: BLOOD SPECIMENOrdering Facility: [facility] Address: [address] [place] [address] Performed By: #### 5 8410-2 ####[facility] LABIA [id number] [place] [address] [place] Platelet mean volume (Bld) [Entitic vol] 9.8 fL Normal 9.0-12.7 [place] Comment on above: Order Comment: Speci men Type: BLOOD SPECIMENOrdering Facility: [facility] Address: [address] [place] [address] Performed By: #### 5 8410-2 ####[facility] LABCLIA [id number] [place] [address] [place] Platelets (Bld) [#/Vol] 341 10*3/uL Normal 150-400 [place] Comment on above: Order Comment: Speci men Type: BLOOD SPECIMENOrdering Facility: [facility] Address: [address] [place] [address] Performed By: #### 5 8410-2 ####[facility] LABIA [id number] [place] [address] [place] RBC (Bld) [#/Vol] 4.44 10*6/uL Normal 3.90-5.20 [facility] Comment on above: Order Comment: Speci men Type: BLOOD SPECIMENOrdering Facility: [facility] Address: [address] [place] [address] Performed By: #### 5 8410-2 ####[facility] LABIA [id number] [place] [address] [place] WBC (Bld) [#/Vol] 12.66 10*3/uL High 3.70-11.00 [facility] Comment on above: Order Comment: Speci men Type: BLOOD SPECIMENOrdering Facility: [facility] Address: [address] [place] [address] Performed By: #### 5 8410-2 ####[facility] LABIA [id number] [place] [address] [place] CRP SerPl-mCncon 06-30-2024 CRP [Mass/Vol] 0.1 mg/dL Normal <0.9 [place] Comment on above: Order Comment: Speci men Type: BLOOD SPECIMENOrdering Facility: [facility] Address: [address] [place] [address] Performed By: #### 1 988-5, 22196-7 ####[facility] LABIA [id number] [place] [address] [place] [facility] Comprehensive metabolic 2000 panelon 06-30-2024 Albumin [Mass/Vol] 4.0 g/dL Normal 3.9-4.9 [facility] Comment on above: Order Comment: Speci men Type: BLOOD SPECIMENOrdering Facility: [facility] Address: [address] [place] [address] Performed By: #### 1 988-5, 09248-5 ####[facility] LABCLIA [id number] [place] [address] [place] ALP [Catalytic activity/Vol] 52 U/L Normal 34-123 [place] Comment on above: Order Comment: Speci men Type: BLOOD SPECIMENOrdering Facility: [facility] Address: [address] [place] [address] Performed By: #### 1 988-5, 14835-3 ####[facility] LABCLIA [id number] [place] [address] [place] ALT [Catalytic activity/Vol] 26 U/L Normal 7-38 [place] Comment on above: Order Comment: Speci men Type: BLOOD SPECIMENOrdering Facility: [facility] Address: [address] [place] [address] Performed By: #### 1 988-5, 46350-4 ####[facility] LABCLIA [id number] [place] [address] [place] Anion gap [Moles/Vol] 10 mmol/L Normal 8-15 [facility] Comment on above: Order Comment: Speci men Type: BLOOD SPECIMENOrdering Facility: [facility] Address: [address] [place] [address] Performed By: #### 1 988-5, 25061-6 ####[facility] LABCLIA [id number] [place] [address] [place] AST [Catalytic activity/Vol] 12 U/L Low 13-35 [place] Comment on above: Order Comment: Speci men Type: BLOOD SPECIMENOrdering Facility: [facility] Address: [address] [place] [address] Performed By: #### 1 988-5, 06055-2 ####[facility] LABCLIA [id number] [place] [address] [place] Bilirubin [Mass/Vol] 0.3 mg/dL Normal 0.2-1.3 [facility] Comment on above: Order Comment: Speci men Type: BLOOD SPECIMENOrdering Facility: [facility] Address: [address] [place] [address] Performed By: #### 1 988-5, 76421-7 ####[facility] LABIA [id number] [place] [address] [place] Calcium [Mass/Vol] 9.5 mg/dL Normal 8.5-10.2 [facility] Comment on above: Order Comment: Speci men Type: BLOOD SPECIMENOrdering Facility: [facility] Address: [address] [place] [address] Performed By: #### 1 988-5, 02598-7 ####[facility] LABIA [id number] [place] [address] [place] Chloride [Moles/Vol] 103 mmol/L Normal 98-107 [facility] Comment on above: Order Comment: Speci men Type: BLOOD SPECIMENOrdering Facility: [facility] Address: [address] [facility] [address] [place] [address] Performed By: #### 1 988-5, ####[facility] LABCLIA [id number] [place] [address] [place] CO2 [Moles/Vol] 27 mmol/L Normal 22-30 [place] Comment on above: Order Comment: Speci men Type: BLOOD SPECIMENOrdering Facility: [facility] Address: [address] [place] [address] Performed By: #### 1 988-5, 63000-0 ####[facility] LABCLIA [id number] [place] [address] [place] Creatinine [Mass/Vol] 0.78 mg/dL Normal 0.58-0.96 [facility] Comment on above: Order Comment: Semaj cortés Type: BLOOD SPECIMENOrdering Facility: [facility] Address: [address] [place] [address] Performed By: #### 1 988-5, 40938-0 ####[facility] LABIA [id number] [place] [address] [place] Creatinine and Glomerular filtration rate.predicted panel (S/P/Bld) 97 mL/min/1.73m??? Normal >=60 [place] Comment on above: Order Comment: eSmaj cortés Type: BLOOD SPECIMENOrdering Facility: [facility] Address: [address] [place] [address] Result Comment: Erin mated Glomerular Filtration Rate [...] actual GFR. Performed By: #### 1 988-5, 83449-3 ####[facility] LABIA [id number] [place] [id number] [place] Glucose [Mass/Vol] 116 mg/dL High 74-99 [facility] Comment on above: Order Comment: Semaj cortés Type: BLOOD SPECIMENOrdering Facility: [facility] Address: [address] [place] [address] Result Comment: The [place] Diabetes Association (ADA) provides guidance for cutoff [...] Standards of Medical Care in Diabetes 2016, [place] [employer]. Diabetes Care. 2016.39(Suppl 1). Performed By: #### 1 988-5, 66093-1 ####[facility] LABCLIA [id number] [place] [address] [place] Potassium [Moles/Vol] 3.8 mmol/L Normal 3.7-5.1 [facility] Comment on above: Order Comment: Speci men Type: BLOOD SPECIMENOrdering Facility: [facility] Address: [address] [place] [id number] Performed By: #### 1 988-5, 19513-9 ####[facility] LABIA [id number] [place] [address] [place] Protein [Mass/Vol] 7.6 g/dL Normal 6.3-8.0 [facility] Comment on above: Order Comment: Speci men Type: BLOOD SPECIMENOrdering Facility: [facility] Address: [address] [place] [address] Performed By: #### 1 988-5, 97699-1 ####[facility] LABIA [id number] [place] [address] [place] Sodium [Moles/Vol] 140 mmol/L Normal 136-144 [facility] Comment on above: Order Comment: Speci men Type: BLOOD SPECIMENOrdering Facility: [facility] Address: [address] [place] [address] Performed By: #### 1 988-5, 53756-3 ####[facility] LABIA [id number] [place] [address] [place] Urea nitrogen [Mass/Vol] 18 mg/dL Normal 7-21 [place] Comment on above: Order Comment: Speci men Type: BLOOD SPECIMENOrdering Facility: [facility] Address: [address] [place] [address] Performed By: #### 1 988-5, 26392-4 ####[facility] LABCLIA [id number] [place] [address] [place] ESR Westergren method (Bld) [Velocity]on 06-30-2024 ESR (Bld) [Velocity] 28 mm/h High 0-[address] [facility] Comment on above: Order Comment: Speci men Type: BLOOD SPECIMENOrdering Facility: [facility] Address: [address] [place] [address] Performed By: #### 4 537-7 ####[facility] LABCLIA [id number] [place] [address] [place] CNPNon 06-16-2024 CNPN Normal [place] ALLIED HEALTHon 06-13-2024 ALLIED HEALTH Normal [place] CBC W Auto Differential pane l (Bld)on 06-13-2024 Basophils (Bld) [#/Vol] 0.10 10*3/uL [facility] Basophils/100 WBC (Bld) 0.7 % [facility] Differential cell count method Nom (Bld) Auto [facility] Eosinophils (Bld) [#/Vol] 0.15 10*3/uL [facility] Eosinophils/100 WBC (Bld) 1.1 % [facility] Erythrocyte distribution width (RBC) [Ratio] 14.2 % 11.5 - 15.0 % [facility] Hematocrit (Bld) [Volume fraction] 39.0 % 36.0 - 46.0 % [facility] Hemoglobin (Bld) [Mass/Vol] 13.0 g/dL 11.5 - 15.5 g/dL [facility] Immature granulocytes (Bld) [#/Vol] 0.21 10*3/uL High [facility] Immature granulocytes/100 WBC (Bld) 1.5 % [facility] Interpretation and review of laboratory results Abnormal [facility] Lymphocytes (Bld) [#/Vol] 2.16 10*3/uL [facility] Lymphocytes/100 WBC (Bld) 15.4 % [facility] MCH (RBC) [Entitic mass] 30.5 pg 26.0 - 34.0 pg [facility] MCHC (RBC) [Mass/Vol] 33.3 g/dL 30.5 - 36.0 g/dL [facility] MCV (RBC) [Entitic vol] 91.5 fL 80.0 - 100.0 fL [facility] Monocytes (Bld) [#/Vol] 0.79 10*3/uL [facility] Monocytes/100 WBC (Bld) 5.6 % [facility] Neutrophils (Bld) [#/Vol] 10.59 10*3/uL High [facility] Neutrophils/100 WBC (Bld) 75.7 % [facility] Nucleated RBC (Bld) [#/Vol] NINF [facility] Nucleated RBC/100 WBC (Bld) [Ratio] 0.0 % /100 WBC [facility] Platelet mean volume (Bld) [Entitic vol] 9.9 fL 9.0 - 12.7 fL [facility] Platelets (Bld) [#/Vol] 327 10*3/uL [facility] RBC (Bld) [#/Vol] 4.26 10*6/uL 3.90 - 5.2 0 m/uL [facility] WBC (Bld) [#/Vol] 14.00 10*3/uL [facility] Basophils (Bld) [#/Vol] 0.10 10*3/uL Normal <0.11 [place] Comment on above: Order Comment: Speci men Type: BLOOD SPECIMENOrdering Facility: [facility] Address: [address] [place] [address] Performed By: #### 5 7021-8 ####[facility] LABCLIA [id number] [place] [address] Basophils/100 WBC (Bld) 0.7 % Normal [place] Comment on above: Order Comment: Speci men Type: BLOOD SPECIMENOrdering Facility: [facility] Address: [address] [place] [address] Performed By: #### 5 7021-8 ####[facility] LABCLIA [id number] [place] [address] Differential cell count method Nom (Bld) Auto Normal [place] Comment on above: Order Comment: Speci men Type: BLOOD SPECIMENOrdering Facility: [facility] Address: [address] [place] [address] Performed By: #### 5 7021-8 ####[facility] LABCLIA [id number] [place] [address] Eosinophils (Bld) [#/Vol] 0.15 10*3/uL Normal <0.46 [place] Comment on above: Order Comment: Speci men Type: BLOOD SPECIMENOrdering Facility: [facility] Address: [address] [place] [address] Performed By: #### 5 7021-8 ####[facility] LABCLIA [id number] [place] [address] Eosinophils/100 WBC (Bld) 1.1 % Normal [place] Comment on above: Order Comment: Speci men Type: BLOOD SPECIMENOrdering Facility: [facility] Address: [address] [place] [address] Performed By: #### 5 7021-8 ####[facility] LABCLIA [id number] [place] [address] Erythrocyte distribution width (RBC) [Ratio] 14.2 % Normal 11.5-15.0 [place] Comment on above: Order Comment: Speci men Type: BLOOD SPECIMENOrdering Facility: [facility] Address: [address] [place] [address] Performed By: #### 5 7021-8 ####[facility] LABCLIA [id number] [place] [address] Hematocrit (Bld) [Volume fraction] 39.0 % Normal 36.0-46.0 [place] Comment on above: Order Comment: Speci men Type: BLOOD SPECIMENOrdering Facility: [facility] Address: [address] [place] [address] Performed By: #### 5 7021-8 ####[facility] LABCLIA [id number] [place] [address] Hemoglobin (Bld) [Mass/Vol] 13.0 g/dL Normal 11.5-15.5 [place] Comment on above: Order Comment: Speci men Type: BLOOD SPECIMENOrdering Facility: [facility] Address: [address] [place] [address] Performed By: #### 5 7021-8 ####[facility] LABCLIA [id number] [place] [address] Immature granulocytes (Bld) [#/Vol] 0.21 10*3/uL High <0.10 [place] Comment on above: Order Comment: Speci men Type: BLOOD SPECIMENOrdering Facility: [facility] Address: [address] [place] [address] Performed By: #### 5 7021-8 ####[facility] LABCLIA [id number] [place] [address] Immature granulocytes/100 WBC (Bld) 1.5 % Normal [place] Comment on above: Order Comment: Speci men Type: BLOOD SPECIMENOrdering Facility: [facility] Address: [address] [place] [address] Performed By: #### 5 7021-8 ####[facility] LABCLIA [id number] [place] [address] Lymphocytes (Bld) [#/Vol] 2.16 10*3/uL Normal 1.00-4.00 [place] Comment on above: Order Comment: Speci men Type: BLOOD SPECIMENOrdering Facility: [facility] Address: [address] [place] [address] Performed By: #### 5 7021-8 ####[facility] LABCLIA [id number] [place] [address] Lymphocytes/100 WBC (Bld) 15.4 % Normal [place] Comment on above: Order Comment: Speci men Type: BLOOD SPECIMENOrdering Facility: [facility] Address: [address] [place] [address] Performed By: #### 5 7021-8 ####[facility] LABCLIA [id number] [place] [address] MCH (RBC) [Entitic mass] 30.5 pg Normal 26.0-34.0 [place] Comment on above: Order Comment: Speci men Type: BLOOD SPECIMENOrdering Facility: [facility] Address: [address] [place] [address] Performed By: #### 5 7021-8 ####[facility] LABCLIA [id number] [place] [address] MCHC (RBC) [Mass/Vol] 33.3 g/dL Normal 30.5-36.0 [facility] Comment on above: Order Comment: Speci men Type: BLOOD SPECIMENOrdering Facility: [facility] Address: [address] [place] [address] Performed By: #### 5 7021-8 ####[facility] LABCLIA [id number] [place] [address] MCV (RBC) [Entitic vol] 91.5 fL Normal 80.0-100.0 [place] Comment on above: Order Comment: Speci men Type: BLOOD SPECIMENOrdering Facility: [facility] Address: [address] [place] [address] Performed By: #### 5 7021-8 ####[facility] LABCLIA [id number] [place] [address] Monocytes (Bld) [#/Vol] 0.79 10*3/uL Normal <0.87 [place] Comment on above: Order Comment: Speci men Type: BLOOD SPECIMENOrdering Facility: [facility] Address: [address] [place] [address] Performed By: #### 5 7021-8 ####[facility] LABCLIA [id number] [place] [address] Monocytes/100 WBC (Bld) 5.6 % Normal [place] Comment on above: Order Comment: Speci men Type: BLOOD SPECIMENOrdering Facility: [facility] Address: [address] [place] [address] Performed By: #### 5 7021-8 ####[facility] LABCLIA [id number] [place] [address] Neutrophils (Bld) [#/Vol] 10.59 10*3/uL High 1.45-7.50 [place] Comment on above: Order Comment: Speci men Type: BLOOD SPECIMENOrdering Facility: [facility] Address: [address] [place] [address] Performed By: #### 5 7021-8 ####[facility] LABCLIA [id number] [place] [address] Neutrophils/100 WBC (Bld) 75.7 % Normal [place] Comment on above: Order Comment: Speci men Type: BLOOD SPECIMENOrdering Facility: [facility] Address: [address] [place] [address] Performed By: #### 5 7021-8 ####[facility] LABCLIA [id number] [place] [address] Nucleated RBC (Bld) [#/Vol] 10*3/uL Normal <0.01 [place] Comment on above: Order Comment: Speci men Type: BLOOD SPECIMENOrdering Facility: [facility] Address: [address] [place] [address] Performed By: #### 5 7021-8 ####[facility] LABCLIA [id number] [place] [address] Nucleated RBC/100 WBC (Bld) [Ratio] 0.0 /100 WBC Normal [place] Comment on above: Order Comment: Speci men Type: BLOOD SPECIMENOrdering Facility: [facility] Address: [address] [place] [address] Performed By: #### 5 7021-8 ####[facility] LABCLIA [id number] [place] [address] Platelet mean volume (Bld) [Entitic vol] 9.9 fL Normal 9.0-12.7 [place] Comment on above: Order Comment: Speci men Type: BLOOD SPECIMENOrdering Facility: [facility] Address: [address] [place] [address] Performed By: #### 5 7021-8 ####[facility]CLIA [id number] [place] [address] Platelets (Bld) [#/Vol] 327 10*3/uL Normal 150-400 [place] Comment on above: Order Comment: Speci men Type: BLOOD SPECIMENOrdering Facility: [facility] Address: [address] [place] [address] Performed By: #### 5 7021-8 ####[facility] [id number] [place] [address] RBC (Bld) [#/Vol] 4.26 10*6/uL Normal 3.90-5.20 [facility] Comment on above: Order Comment: Speci men Type: BLOOD SPECIMENOrdering Facility: [facility] Address: [address] [place] [address] Performed By: #### 5 7021-8 ####[facility] LABCLIA [id number] [place] [address] WBC (Bld) [#/Vol] 14.00 10*3/uL High 3.70-11.00 [facility] Comment on above: Order Comment: Speci men Type: BLOOD SPECIMENOrdering Facility: [facility] Address: [address] [place] [address] Performed By: #### 5 7021-8 ####[facility] LABCLIA [id number] [place] [address] CNOVSPon 06-13-2024 CNOVSP Normal [facility] 2000 panelOrdered By: Josse Merlos on 06-13-2024 Albumin [Mass/Vol] 3.9 g/dL 3.9 - 4.9 g/dL [facility] ALP [Catalytic activity/Vol] 73 U/L 34 - 123 U/L [facility] ALT [Catalytic activity/Vol] 24 U/L 7 - 38 U/L [facility] Anion gap [Moles/Vol] 15 mmol/L 8 - 15 mmol/L [facility] AST [Catalytic activity/Vol] 12 U/L Low 13 - 35 U/L [facility] Bilirubin [Mass/Vol] mg/dL Low 0.2 - 1 .3 mg/dL [facility] Calcium [Mass/Vol] 9.2 mg/dL 8.5 - 10. 2 mg/dL [facility] Chloride [Moles/Vol] 104 mmol/L 98 - 10 7 mmol/L [facility] CO2 [Moles/Vol] 19 mmol/L Low 22 - 30 mmol/L [facility] Creatinine [Mass/Vol] 0.58 mg/dL 0.58 - 0.96 mg/dL [facility] GFR/1.73 sq M.predicted among non-blacks MDRD (S/P/Bld) [Vol rate/Area] 115 mL/min/{1.73_m2} - PINF [facility] Comment on above: Estimated Glomerular [...] [facility] Comment on above: The [place] Diab[employer] Association (ADA) provides guidance for [...] Standards of Medical Care in Diabetes 2016, [place] [employer] Association. Diabetes Care. 2016.39(Suppl 1). Interpretation and review of laboratory results Abnormal [facility] Potassium [Moles/Vol] 3.9 mmol/L 3.7 - 5.1 mmol/L [facility] Protein [Mass/Vol] 6.8 g/dL 6.3 - 8.0 g/dL [facility] Sodium [Moles/Vol] 138 mmol/L 136 - 144 mmol/L [facility] Urea nitrogen [Mass/Vol] 13 mg/dL 7 - 21 mg/dL [facility] Comprehensive metabolic 2000 panelon 06-13-2024 Albumin [Mass/Vol] 3.9 g/dL Normal 3.9-4.9 [facility] Comment on above: Order Comment: Speci men Type: BLOOD SPECIMENOrdering Facility: [facility] Address: [address] [place] [address] Performed By: #### 2 4323-8 ####[facility] LABCLIA [id number] [place] [address] ALP [Catalytic activity/Vol] 73 U/L Normal 34-123 [place] Comment on above: Order Comment: Speci men Type: BLOOD SPECIMENOrdering Facility: [facility] Address: [address] [place] [address] Performed By: #### 2 4323-8 ####[facility] LABCLIA [id number] [place] [address] ALT [Catalytic activity/Vol] 24 U/L Normal 7-38 [place] Comment on above: Order Comment: Speci men Type: BLOOD SPECIMENOrdering Facility: [facility] Address: [address] [place] [address] Performed By: #### 2 4323-8 ####[facility] LABCLIA [id number] [place] [address] Anion gap [Moles/Vol] 15 mmol/L Normal 8-15 [facility] Comment on above: Order Comment: Speci men Type: BLOOD SPECIMENOrdering Facility: [facility] Address: [address] [place], [place] [address] Performed By: #### 2 4323-8 ####[facility] LABCLIA [id number] [place] [address] AST [Catalytic activity/Vol] 12 U/L Low 13-35 [place] Comment on above: Order Comment: Speci men Type: BLOOD SPECIMENOrdering Facility: [facility] Address: [address] [place] [address] Performed By: #### 2 4323-8 ####[facility] LABCLIA [id number] [place] [address] Bilirubin [Mass/Vol] mg/dL Low 0.2-1.3 [facility] Comment on above: Order Comment: Speci men Type: BLOOD SPECIMENOrdering Facility: [facility] Address: [address] [place] [address] Performed By: #### 2 4323-8 ####[facility] LABCLIA [id number] [place] [address] Calcium [Mass/Vol] 9.2 mg/dL Normal 8.5-10.2 [facility] Comment on above: Order Comment: Speci men Type: BLOOD SPECIMENOrdering Facility: [facility] Address: [address] [place] [address] Performed By: #### 2 4323-8 ####[facility] LABCLIA [id number] [place] [address] Chloride [Moles/Vol] 104 mmol/L Normal 98-107 [facility] Comment on above: Order Comment: Speci men Type: BLOOD SPECIMENOrdering Facility: [facility] Address: [address] [place], [place] [address] Performed By: #### 2 4323-8 ####[facility] LABCLIA [id number] [place] [address] CO2 [Moles/Vol] 19 mmol/L Low 22-30 [place] Comment on above: Order Comment: Speci men Type: BLOOD SPECIMENOrdering Facility: [facility] Address: [address] [place] [address] Performed By: #### 2 4323-8 ####[facility] LABCLIA [id number] [place] [address] Creatinine [Mass/Vol] 0.58 mg/dL Normal 0.58-0.96 [facility] Comment on above: Order Comment: Speci men Type: BLOOD SPECIMENOrdering Facility: [facility] Address: [address] [place] [address] Performed By: #### 2 4323-8 ####[facility] LABCLIA [id number] [place] [address] Creatinine and Glomerular filtration rate.predicted panel (S/P/Bld) 115 mL/min/1.73m??? Normal >=60 [place] Comment on above: Order Comment: Speci men Type: BLOOD SPECIMENOrdering Facility: [facility] Address: [address] [place] [address] Result Comment: Erin mated Glomerular Filtration Rate [...] GFR. Performed By: #### 2 4323-8 ####[facility] LABCLIA [id number] [place] [address] Glucose [Mass/Vol] 163 mg/dL High 74-99 [facility] Comment on above: Order Comment: Speci men Type: BLOOD SPECIMENOrdering Facility: [facility] Address: [address] [place] [address] Result Comment: The [place] Diabetes Association (ADA) provides guidance for cutoff [...] Standards of Medical Care in Diabetes 2016, [place] Diabetes Association. Diabetes Care. 2016.39(Suppl 1). Performed By: #### 2 4323-8 ####[facility] LABCLIA [id number] [place] [address] Potassium [Moles/Vol] 3.9 mmol/L Normal 3.7-5.1 [facility] Comment on above: Order Comment: Speci men Type: BLOOD SPECIMENOrdering Facility: [facility] Address: [address] [place] [address] Performed By: #### 2 4323-8 ####[facility] LABCLIA [id number] [place] [address] Protein [Mass/Vol] 6.8 g/dL Normal 6.3-8.0 [facility] Comment on above: Order Comment: Speci men Type: BLOOD SPECIMENOrdering Facility: [facility] Address: [address] [place] [address] Performed By: #### 2 4323-8 ####[facility] LABCLIA [id number] [place] [address] Sodium [Moles/Vol] 138 mmol/L Normal 136-144 [facility] Comment on above: Order Comment: Speci men Type: BLOOD SPECIMENOrdering Facility: [facility] Address: [address] [place] [address] Performed By: #### 2 4323-8 ####[facility] LABCLIA [id number] [place] [address] Urea nitrogen [Mass/Vol] 13 mg/dL Normal 7-21 [place] Comment on above: Order Comment: Speci men Type: BLOOD SPECIMENOrdering Facility: [facility] Address: [address] [place], [place] [address] Performed By: #### 2 4323-8 ####[facility] LABCLIA [id number] [place] [id number] ESR Westergren method (Bld) [Velocity]on 06-13-2024 ESR (Bld) [Velocity] 30 mm/h High [facility] Interpretation and review of laboratory results Abnormal [facility] ESR (Bld) [Velocity] 30 mm/h High 0-20 [facility] Comment on above: Order Comment: Speci men Type: BLOOD SPECIMENOrdering Facility: [facility] Address: [address] [place] [address] Performed By: #### 4 537-7 ####[facility] LABCLIA [id number] [place] [address] [place] FERRITINon 06-13-2024 Ferritin [Mass/Vol] 30.9 ng/mL 14.7 - 2 05.1 ng/mL [facility] FOLATE, SERUMon 06-13-2024 Folate [Mass/Vol] 19.6 ng/mL 4.7 - PINF ng/mL [facility] Ferritin SerPl-mCncon 2024 Ferritin [Mass/Vol] 30.9 ng/mL Normal 14.7-205.1 [facility] Comment on above: Order Comment: Speci men Type: BLOOD SPECIMENOrdering Facility: [facility] Address: [address] [place] [address] Performed By: #### 2 284-8, 2276-4, 27922-6, 2132-9 ####[facility] LABCLIA [id number] [place] [id number] [place] Ferritin [Mass/Vol]on 2024 Interpretation and review of laboratory results Normal [facility] Folate SerPl-mCncon 06-13-19 25 Folate [Mass/Vol] 19.6 ng/mL Normal >4.7 [facility] Comment on above: Order Comment: Speci men Type: BLOOD SPECIMENOrdering Facility: [facility] Address: [address] [place] [address] Performed By: #### 2 284-8, 2276-4, 91345-1, 2132-9 ####[facility] LABCLIA [id number] [place] [address] [place] IMMUNOGLOBULINS,IGG,IGA,IGMo n 06-13-2024 IgA [Mass/Vol] 170 mg/dL Normal 70-400 [place] Comment on above: Order Comment: Speci men Type: BLOOD SPECIMENOrdering Facility: [facility] Address: [address] [place] [address] Performed By: #### S ERIMM ####[facility] LABCLIA [id number] [place] [address] [place] IgG [Mass/Vol] 663 mg/dL Low 700-1600 [place] Comment on above: Order Comment: Speci men Type: BLOOD SPECIMENOrdering Facility: [facility] Address: [address] [place] [address] Performed By: #### S ERIMM ####[facility] LABCLIA [id number] [place] [address] [place] IgM [Mass/Vol] 376 mg/dL High 40-230 [place] Comment on above: Order Comment: Speci men Type: BLOOD SPECIMENOrdering Facility: [facility] Address: [address] [place] [address] Performed By: #### S ERIMM ####[facility] LABCLIA [id number] [place] [address] [place] Iron and Iron binding capaci ty panelon 06-13-2024 Iron [Mass/Vol] 64 ug/dL Normal 41-186 [place] Comment on above: Order Comment: Speci men Type: BLOOD SPECIMENOrdering Facility: [facility] Address: [address] [place], [place] [address] Performed By: #### 2 284-8, 2276-4, 38967-2, 2132-01 ####[facility] LABCLIA [id number] [place] [id number] [place] Iron binding capacity [Mass/Vol] 409 ug/dL High 232-386 [place] Comment on above: Order Comment: Speci men Type: BLOOD SPECIMENOrdering Facility: [facility] Address: [address] [place], [place] [address] Performed By: #### 2 284-8, 2276-4, 17036-7, 2132-01 ####[facility] LABCLIA [id number] [place] [id number] [place] Iron/TIBC [Molar ratio] 15.6 % Normal 15.0-57.0 [place] Comment on above: Order Comment: Speci men Type: BLOOD SPECIMENOrdering Facility: [facility] Address: [address] [place] [address] Performed By: #### 2 284-8, 2276-4, 61795-2, 2132-01 ####[facility] LABCLIA [id number] [place] [id number] [place] Laboratory - Chemistry and C hemistry - challengeon 06-13-2024 IgA [Mass/Vol] 170 mg/dL 70 - 400 mg/dL [facility] IgG [Mass/Vol] 663 mg/dL Low 700 - 1600 mg/dL [facility] IgM [Mass/Vol] 376 mg/dL High 40 - 230 mg/dL [facility] No Panel Informationon 06-13 Interpretation and review of laboratory results Normal [facility] Interpretation and review of laboratory results Abnormal [facility] VITAMIN B12on 06-13-2024 Cobalamin (Vitamin B12) [Mass/Vol] 516 pg/mL 232 - 1245 pg/mL [facility] Vit B12 SerPl-mCncon 025 Cobalamin (Vitamin B12) [Mass/Vol] 516 pg/mL Normal 232-1245 [place] Comment on above: Order Comment: Speci men Type: BLOOD SPECIMENOrdering Facility: [facility] Address: [address] [place] [address] Performed By: #### 2 284-8, 2276-4, 23941-5, 2132-9 ####[facility] LABCLIA [id number] [facility] [place] [address] [place] CNPNon 06-12-2024 CNPN Normal [place] IGP,APTIMA HPV,AGE GDLNon AGE GDLN ACOG TESTING Note . [facility] Comment on above: TESTS RESULT FLAG UN ITS REF RANGE LAB Clinician Provided Cytology Information Source.............Cervix;Endocervix No. of containers..01 ThinPrep Vial Age Algo ACOG Vicky... 01 FLAG LEGEND: L-Low Normal,H-High Normal,LL-Alert Low,HH-Alert High <-Panic Low,>-Panic High,A-Abnormal,AA-Critical Abnormal Performed at: 01 =G [facility] [place] [address] Aparna Solorzano MD, HPV APTIMA Negative Negative [facility] Comment on above: This nucleic acid am plification test detects fourteen high- risk HPV types (16,18,31,33,35,39,45,51,52,56,58,59,66,68) without differentiation. Performed at: = - [facility] [id number] Lift Mechanic: Aparna Solorzano MD, Phone: [phone] Performed at: - [facility], [place] [id number] Lift Mechanic: Aparna Solorzano MD, Phone: [phone] IGP, APTIMA HPV, RFX 16/18,45 Note . [facility] Comment on above: TESTS RESULT FLAG UN ITS REF RANGE LAB DIAGNOSIS: 02 NEGATIVE FOR INTRAEPITHELIAL LESION OR MALIGNANCY. Specimen adequacy: 02 Satisfactory for evaluation. Endocervical and/or squamous metaplastic cells (endocervical component) are present. Performed by: David Kam, Cso ([facility]) . 02 Note: Note 02 The [...] High,A-Abnormal,AA-Critical Abnormal Performed at: 02 [facility] [address] [place] [address] Aparna Solorzano MD, BRUSH-SPATULA [facility]IX [facility] CBC W Auto Differential pane l (Bld)on 05-19-2024 Basophils (Bld) [#/Vol] 0.08 10*3/uL [facility] Basophils/100 WBC (Bld) 0.6 % [facility] Differential cell count method Nom (Bld) Auto [facility] Eosinophils (Bld) [#/Vol] 0.17 10*3/uL [facility] Eosinophils/100 WBC (Bld) 1.2 % [facility] Erythrocyte distribution width (RBC) [Ratio] 14.3 % 11.5 - 15.0 % [facility] Hematocrit (Bld) [Volume fraction] 39.8 % 36.0 - 46.0 % [facility] Hemoglobin (Bld) [Mass/Vol] 13.4 g/dL 11.5 - 15.5 g/dL [facility] Immature granulocytes (Bld) [#/Vol] 0.13 10*3/uL High [facility] Immature granulocytes/100 WBC (Bld) 0.9 % [facility] Interpretation and review of laboratory results Abnormal [facility] Lymphocytes (Bld) [#/Vol] 2.96 10*3/uL [facility] Lymphocytes/100 WBC (Bld) 20.5 % [facility] MCH (RBC) [Entitic mass] 31.1 pg 26.0 - 34.0 pg [facility] MCHC (RBC) [Mass/Vol] 33.7 g/dL 30.5 - 36.0 g/dL [facility] MCV (RBC) [Entitic vol] 92.3 fL 80.0 - 100.0 fL [facility] Monocytes (Bld) [#/Vol] 0.87 10*3/uL High [facility] Monocytes/100 WBC (Bld) 6.0 % [facility] Neutrophils (Bld) [#/Vol] 10.20 10*3/uL High [facility] Neutrophils/100 WBC (Bld) 70.8 % [facility] Nucleated RBC (Bld) [#/Vol] NINF [facility] Nucleated RBC/100 WBC (Bld) [Ratio] 0.0 % /100 WBC [facility] Platelet mean volume (Bld) [Entitic vol] 10.1 fL 9.0 - 12.7 fL [facility] Platelets (Bld) [#/Vol] 303 10*3/uL [facility] RBC (Bld) [#/Vol] 4.31 10*6/uL 3.90 - 5.2 0 m/uL [facility] WBC (Bld) [#/Vol] 14.41 10*3/uL High [facility] Basophils (Bld) [#/Vol] 0.08 10*3/uL Normal <0.11 [place] Comment on above: Order Comment: Speci men Type: BLOOD SPECIMENOrdering Facility: [facility] Address: [address] [place] [address] Performed By: #### 5 7021-8 ####[facility] LABCLIA [id number] [place] [address] Basophils/100 WBC (Bld) 0.6 % Normal [place] Comment on above: Order Comment: Speci men Type: BLOOD SPECIMENOrdering Facility: [facility] Address: [address] [place] [address] Performed By: #### 5 7021-8 ####[facility] LABCLIA [id number] [place] [address] Differential cell count method Nom (Bld) Auto Normal [place] Comment on above: Order Comment: Speci men Type: BLOOD SPECIMENOrdering Facility: [facility] Address: [address] [place] [address] Performed By: #### 5 7021-8 ####[facility] LABCLIA [id number] [place] [address] Eosinophils (Bld) [#/Vol] 0.17 10*3/uL Normal <0.46 [place] Comment on above: Order Comment: Speci men Type: BLOOD SPECIMENOrdering Facility: [facility] Address: [address] [place] [address] Performed By: #### 5 7021-8 ####[facility] LABCLIA [id number] [place] [address] Eosinophils/100 WBC (Bld) 1.2 % Normal [place] Comment on above: Order Comment: Speci men Type: BLOOD SPECIMENOrdering Facility: [facility] Address: [address] [place] [address] Performed By: #### 5 7021-8 ####[facility] LABCLIA [id number] [place] [address] Erythrocyte distribution width (RBC) [Ratio] 14.3 % Normal 11.5-15.0 [place] Comment on above: Order Comment: Speci men Type: BLOOD SPECIMENOrdering Facility: [facility] Address: [address] [place] [address] Performed By: #### 5 7021-8 ####[facility] LABCLIA [id number] [place] [address] Hematocrit (Bld) [Volume fraction] 39.8 % Normal 36.0-46.0 [place] Comment on above: Order Comment: Speci men Type: BLOOD SPECIMENOrdering Facility: [facility] Address: [address] [place] [address] Performed By: #### 5 7021-8 ####[facility] LABCLIA [id number] [place] [address] Hemoglobin (Bld) [Mass/Vol] 13.4 g/dL Normal 11.5-15.5 [place] Comment on above: Order Comment: Speci men Type: BLOOD SPECIMENOrdering Facility: [facility] Address: [address] [place] [address] Performed By: #### 5 7021-8 ####[facility] LABCLIA [id number] [place] [address] Immature granulocytes (Bld) [#/Vol] 0.13 10*3/uL High <0.10 [place] Comment on above: Order Comment: Speci men Type: BLOOD SPECIMENOrdering Facility: [facility] Address: [address] [place] [address] Performed By: #### 5 7021-8 ####[facility] LABCLIA [id number] [place] [address] Immature granulocytes/100 WBC (Bld) 0.9 % Normal [place] Comment on above: Order Comment: Speci men Type: BLOOD SPECIMENOrdering Facility: [facility] Address: [address] [place] [address] Performed By: #### 5 7021-8 ####[facility] LABCLIA [id number] [place] [address] Lymphocytes (Bld) [#/Vol] 2.96 10*3/uL Normal 1.00-4.00 [place] Comment on above: Order Comment: Speci men Type: BLOOD SPECIMENOrdering Facility: [facility] Address: [address] [place] [address] Performed By: #### 5 7021-8 ####[facility] LABCLIA [id number] [place] [address] Lymphocytes/100 WBC (Bld) 20.5 % Normal [place] Comment on above: Order Comment: Speci men Type: BLOOD SPECIMENOrdering Facility: [facility] Address: [address] [place] [address] Performed By: #### 5 7021-8 ####[facility] LABCLIA [id number] [place] [address] MCH (RBC) [Entitic mass] 31.1 pg Normal 26.0-34.0 [place] Comment on above: Order Comment: Speci men Type: BLOOD SPECIMENOrdering Facility: [facility] Address: [address] [place] [address] Performed By: #### 5 7021-8 ####[facility] LABCLIA [id number] [place] [address] MCHC (RBC) [Mass/Vol] 33.7 g/dL Normal 30.5-36.0 [facility] Comment on above: Order Comment: Speci men Type: BLOOD SPECIMENOrdering Facility: [facility] Address: [address] [place] [address] Performed By: #### 5 7021-8 ####[facility] LABCLIA [id number] [place] [address] MCV (RBC) [Entitic vol] 92.3 fL Normal 80.0-100.0 [place] Comment on above: Order Comment: Speci men Type: BLOOD SPECIMENOrdering Facility: [facility] Address: [address] [place] [address] Performed By: #### 5 7021-8 ####[facility] LABCLIA [id number] [place] [address] Monocytes (Bld) [#/Vol] 0.87 10*3/uL High <0.87 [place] Comment on above: Order Comment: Speci men Type: BLOOD SPECIMENOrdering Facility: [facility] Address: [address] [place] [address] Performed By: #### 5 7021-8 ####[facility] LABCLIA [id number] [place] [address] Monocytes/100 WBC (Bld) 6.0 % Normal [place] Comment on above: Order Comment: Speci men Type: BLOOD SPECIMENOrdering Facility: [facility] Address: [address] [place] [address] Performed By: #### 5 7021-8 ####[facility] LABCLIA [id number] [place] [address] Neutrophils (Bld) [#/Vol] 10.20 10*3/uL High 1.45-7.50 [place] Comment on above: Order Comment: Speci men Type: BLOOD SPECIMENOrdering Facility: [facility] Address: [address] [place] [address] Performed By: #### 5 7021-8 ####[facility] LABCLIA [id number] [place] [address] Neutrophils/100 WBC (Bld) 70.8 % Normal [place] Comment on above: Order Comment: Speci men Type: BLOOD SPECIMENOrdering Facility: [facility] Address: [address] [place] [address] Performed By: #### 5 7021-8 ####[facility] LABCLIA [id number] [place] [address] Nucleated RBC (Bld) [#/Vol] 10*3/uL Normal <0.01 [place] Comment on above: Order Comment: Speci men Type: BLOOD SPECIMENOrdering Facility: [facility] Address: [address] [place] [address] Performed By: #### 5 7021-8 ####[facility] LABCLIA [id number] [place] [address] Nucleated RBC/100 WBC (Bld) [Ratio] 0.0 /100 WBC Normal [place] Comment on above: Order Comment: Speci men Type: BLOOD SPECIMENOrdering Facility: [facility] Address: [address] [place] [address] Performed By: #### 5 7021-8 ####[facility] LABCLIA [id number] [place] [address] Platelet mean volume (Bld) [Entitic vol] 10.1 fL Normal 9.0-12.7 [place] Comment on above: Order Comment: Speci men Type: BLOOD SPECIMENOrdering Facility: [facility] Address: [address] [place] [address] Performed By: #### 5 7021-8 ####[facility]CLIA [id number] [place] [address] Platelets (Bld) [#/Vol] 303 10*3/uL Normal 150-400 [place] Comment on above: Order Comment: Speci men Type: BLOOD SPECIMENOrdering Facility: [facility] Address: [address] [place] [address] Performed By: #### 5 7021-8 ####[facility]CLIA [id number] [place] [address] RBC (Bld) [#/Vol] 4.31 10*6/uL Normal 3.90-5.20 [facility] Comment on above: Order Comment: Speci men Type: BLOOD SPECIMENOrdering Facility: [facility] Address: [address] [place] [address] Performed By: #### 5 7021-8 ####[facility] LABCLIA [id number] [place] [address] WBC (Bld) [#/Vol] 14.41 10*3/uL High 3.70-11.00 [facility] Comment on above: Order Comment: Speci men Type: BLOOD SPECIMENOrdering Facility: [facility] Address: [address] [place] [address] Performed By: #### 5 7021-8 ####[facility] LABCLIA [id number] [place] [address] Comprehensive metabolic 2000 panelon 05-19-2024 Albumin [Mass/Vol] 4.0 g/dL 3.9 - 4.9 g/dL [facility] ALP [Catalytic activity/Vol] 79 U/L 34 - 123 U/L [facility] ALT [Catalytic activity/Vol] 25 U/L 7 - 38 U/L [facility] Anion gap [Moles/Vol] 14 mmol/L 8 - 15 mmol/L [facility] AST [Catalytic activity/Vol] 12 U/L Low 13 - 35 U/L [facility] Bilirubin [Mass/Vol] mg/dL Low 0.2 - 1 .3 mg/dL [facility] Calcium [Mass/Vol] 9.4 mg/dL 8.5 - 10. 2 mg/dL [facility] Chloride [Moles/Vol] 105 mmol/L 98 - 10 7 mmol/L [facility] CO2 [Moles/Vol] 21 mmol/L Low 22 - 30 mmol/L [facility] Creatinine [Mass/Vol] 0.49 mg/dL Low 0.58 - 0.96 mg/dL [facility] GFR/1.73 sq M.predicted among non-blacks MDRD (S/P/Bld) [Vol rate/Area] 120 mL/min/{1.73_m2} - PINF [facility] Comment on above: Estimated Glomerular [...] [facility] Comment on above: The [place] Diab[employer] Association (ADA) provides guidance for [...] Standards of Medical Care in Diabetes 2016, [place] Diabetes Association. Diabetes Care. 2016.39(Suppl 1). Interpretation and review of laboratory results Abnormal [facility] Potassium [Moles/Vol] 3.8 mmol/L 3.7 - 5.1 mmol/L [facility] Protein [Mass/Vol] 6.6 g/dL 6.3 - 8.0 g/dL [facility] Sodium [Moles/Vol] 140 mmol/L 136 - 144 mmol/L [facility] Urea nitrogen [Mass/Vol] 12 mg/dL 7 - 21 mg/dL [facility] Albumin [Mass/Vol] 4.0 g/dL Normal 3.9-4.9 [facility] Comment on above: Order Comment: Speci men Type: BLOOD SPECIMENOrdering Facility: [facility] Address: [address] [place] [address] Performed By: #### 2 4323-8 ####[facility] LABCLIA [id number] [place] [address] [place] ALP [Catalytic activity/Vol] 79 U/L Normal 34-123 [place] Comment on above: Order Comment: Speci men Type: BLOOD SPECIMENOrdering Facility: [facility] Address: [address] [place] [address] Performed By: #### 2 4323-8 ####[facility] LABCLIA [id number] [place] [address] [place] ALT [Catalytic activity/Vol] 25 U/L Normal 7-38 [place] Comment on above: Order Comment: Speci men Type: BLOOD SPECIMENOrdering Facility: [facility] Address: [address] [place] [address] Performed By: #### 2 4323-8 ####[facility] LABCLIA [id number] [place] [address] [place] Anion gap [Moles/Vol] 14 mmol/L Normal 8-15 [facility] Comment on above: Order Comment: Speci men Type: BLOOD SPECIMENOrdering Facility: [facility] Address: [address] [place] [address] Performed By: #### 2 4323-8 ####[facility] LABCLIA [id number] [place] [address] [place] AST [Catalytic activity/Vol] 12 U/L Low 13-35 [place] Comment on above: Order Comment: Speci men Type: BLOOD SPECIMENOrdering Facility: [facility] Address: [address] [place], [place] [address] Performed By: #### 2 4323-8 ####[facility] LABCLIA [id number] [place] [address] [place] Bilirubin [Mass/Vol] mg/dL Low 0.2-1.3 [facility] Comment on above: Order Comment: Speci men Type: BLOOD SPECIMENOrdering Facility: [facility] Address: [address] [place], [place] [address] Performed By: #### 2 4323-8 ####[facility] LABCLIA [id number] [place] [address] [place] Calcium [Mass/Vol] 9.4 mg/dL Normal 8.5-10.2 [facility] Comment on above: Order Comment: Speci men Type: BLOOD SPECIMENOrdering Facility: [facility] Address: [address] [place] [address] Performed By: #### 2 4323-8 ####[facility] LABCLIA [id number] [place] [address] [place] Chloride [Moles/Vol] 105 mmol/L Normal 98-107 [facility] Comment on above: Order Comment: Speci men Type: BLOOD SPECIMENOrdering Facility: [facility] Address: [address] [place] [address] Performed By: #### 2 4323-8 ####[facility] LABCLIA [id number] [place] [id number] [place] CO2 [Moles/Vol] 21 mmol/L Low 22-30 [place] Comment on above: Order Comment: Speci men Type: BLOOD SPECIMENOrdering Facility: [facility] Address: [address] [place], [place] [address] Performed By: #### 2 4323-8 ####[facility] LABCLIA [id number] [place] [address] [place] Creatinine [Mass/Vol] 0.49 mg/dL Low 0.58-0.96 [facility] Comment on above: Order Comment: Semaj cortés Type: BLOOD SPECIMENOrdering Facility: [facility] Address: [address] [place] [address] Performed By: #### 2 4323-8 ####[facility] LABIA [id number] [address] OF [facility] Creatinine and Glomerular filtration rate.predicted panel (S/P/Bld) 120 mL/min/1.73m??? Normal >=60 [place] Comment on above: Order Comment: Semaj cortés Type: BLOOD SPECIMENOrdering Facility: [facility] Address: [address] [place] [address] Result Comment: Erin mated Glomerular Filtration Rate [...] GFR. Performed By: #### 2 4323-8 ####[facility] LABCLIA [id number] [place] [address] [place] Glucose [Mass/Vol] 155 mg/dL High 74-99 [facility] Comment on above: Order Comment: Semaj cortés Type: BLOOD SPECIMENOrdering Facility: [facility] Address: [address] [place] [address] Result Comment: The [place] Diabetes Association (ADA) provides guidance for cutoff [...] Standards of Medical Care in Diabetes 2016, [place] Diabetes Association. Diabetes Care. 2016.39(Suppl 1). Performed By: #### 2 4323-8 ####[facility] LABCLIA [id number] [address] [address] [place] Potassium [Moles/Vol] 3.8 mmol/L Normal 3.7-5.1 [facility] Comment on above: Order Comment: Speci men Type: BLOOD SPECIMENOrdering Facility: [facility] Address: [address] [place] [address] Performed By: #### 2 4323-8 ####[facility] LABIA [id number] [place] [address] [place] Protein [Mass/Vol] 6.6 g/dL Normal 6.3-8.0 [facility] Comment on above: Order Comment: Speci men Type: BLOOD SPECIMENOrdering Facility: [facility] Address: [address] [place] [address] Performed By: #### 2 4323-8 ####[facility] LABIA [id number] [place] [id number] [place] Sodium [Moles/Vol] 140 mmol/L Normal 136-144 [facility] Comment on above: Order Comment: Speci men Type: BLOOD SPECIMENOrdering Facility: [facility] Address: [address] [place] [address] Performed By: #### 2 4323-8 ####[facility] LABCLIA [id number] [place] [address] [place] Urea nitrogen [Mass/Vol] 12 mg/dL Normal 7-21 [place] Comment on above: Order Comment: Speci men Type: BLOOD SPECIMENOrdering Facility: [facility] Address: [address] [place] [address] Performed By: #### 2 4323-8 ####[facility] LABIA [id number] [place] [address] [place] ESR Westergren method (Bld) [Velocity]on 05-19-2024 ESR (Bld) [Velocity] 21 mm/h High [facility] Interpretation and review of laboratory results Abnormal [facility] ESR (Bld) [Velocity] 21 mm/h High 0-20 [facility] Comment on above: Order Comment: Speci men Type: BLOOD SPECIMENOrdering Facility: [facility] Address: [address] [place] [address] Performed By: #### 4 537-7 ####[facility] LABIA [id number] [place] [address] [place] FERRITIN BLDon 05-19-2024 Ferritin [Mass/Vol] 20.6 ng/mL 14.7 - 2 05.1 ng/mL [facility] FOLATE SERUMon 05-19-2024 Folate [Mass/Vol] 11.1 ng/mL 4.7 - PINF ng/mL [facility] Ferritin SerPl-mCncon 2023 Ferritin [Mass/Vol] 20.6 ng/mL Normal 14.7-205.1 [facility] Comment on above: Order Comment: Speci men Type: BLOOD SPECIMENOrdering Facility: [facility] Address: [address] [place] [address] Performed By: #### 5 0190-8, 2276-4, 2284-8, 2132-9 ####[facility] LABIA [id number] [place] [address] [place] Folate SerPl-mCncon 05-19-20 Folate [Mass/Vol] 11.1 ng/mL Normal >4.7 [facility] Comment on above: Order Comment: Speci men Type: BLOOD SPECIMENOrdering Facility: [facility] Address: [address] [place] [address] Performed By: #### 5 0190-8, 2275-4, 2283-12, 2132-01 ####[facility] LABCLIA [id number] [place] [id number] [place] Iron and Iron binding capaci ty panelon 05-19-2024 Interpretation and review of laboratory results Abnormal [facility] Iron [Mass/Vol] 47 ug/dL 41 - 186 ug/dL [facility] Iron binding capacity [Mass/Vol] 420 ug/dL High 232 - 386 ug/dL [facility] Iron/TIBC [Molar ratio] 11.2 % Low 15.0 - 57.0 % [facility] Iron [Mass/Vol] 47 ug/dL Normal 41-186 [place] Comment on above: Order Comment: Speci men Type: BLOOD SPECIMENOrdering Facility: [facility] Address: [address] [place] [address] Performed By: #### 5 0190-8, 2275-08, 2283-12, 2132-01 ####[facility] LABCLIA [id number] [place] [address] [place] Iron binding capacity [Mass/Vol] 420 ug/dL High 232-386 [place] Comment on above: Order Comment: Speci men Type: BLOOD SPECIMENOrdering Facility: [facility] Address: [address] [place] [address] Performed By: #### 5 0190-8, 4, 2283-12, 2132-01 ####[facility] LABCLIA [id number] [place] [address] [place] Iron/TIBC [Molar ratio] 11.2 % Low 15.0-57.0 [place] Comment on above: Order Comment: Speci men Type: BLOOD SPECIMENOrdering Facility: [facility] Address: [address] [place] [address] Performed By: #### 5 0190-8, 2275-4, 8, 2132-01 ####[facility] LABCLIA [id number] [place] [id number] [place] No Panel Informationon 05-19 Interpretation and review of laboratory results Normal [facility] VITAMIN B12 BLOODon 05-19-20 24 Cobalamin (Vitamin B12) [Mass/Vol] 632 pg/mL 232 - 1245 pg/mL [facility] Vit B12 SerPl-mCncon 024 Cobalamin (Vitamin B12) [Mass/Vol] 632 pg/mL Normal 232-1245 [place] Comment on above: Order Comment: Speci men Type: BLOOD SPECIMENOrdering Facility: [facility] Address: [address] [place] [address] Performed By: #### 5 0190-8, 2276-4, 2284-8, 2132-9 ####[facility] LABCLIA [id number] [place] [id number] [place] CNNURSEon 04-26-2024 CNNURSE Normal [place] CNPNon 04-10-2024 CNPN Normal [place] ALL CBC WITH AUTO DIFFon BASOPHILS ABSOLUTE AUTO 0.1 [facility] Basophils/100 WBC (Bld) 0.4 % 0.2 - 2.0 % [facility] Eosinophils/100 WBC (Bld) 0.4 % Low 0.9 - 7.0 % [facility] Erythrocyte distribution width (RBC) [Ratio] 15.1 % High 11.0 - 15.0 % [facility] Hematocrit (Bld) [Volume fraction] 39.7 % 36.0 - 48.0 % [facility] Hemoglobin (Bld) [Mass/Vol] 13 g/dL 12.0 - 16.0 g/dL [facility] IMMATURE GRANULOCYTES ABS AUTO 0.1 High [facility] Immature granulocytes/100 WBC (Bld) 0.9 % High 0.0 - 0.5 % [facility] Interpretation and review of laboratory results Abnormal [facility] LYMPHOCYTES ABSOLUTE AUTO 2.1 [facility] Lymphocytes/100 WBC (Bld) 18.4 % Low 20.5 - 60.0 % [facility] MCH (RBC) [Entitic mass] 30.9 pg 26.7 - 34.0 pg [facility] MCHC (RBC) [Mass/Vol] 32.7 g/dL 29.9 - 35.2 g/dL [facility] MCV (RBC) [Entitic vol] 94.3 fL 81.0 - 99.0 fL [facility] MONOCYTES ABSOLUTE AUTO 0.8 [facility] Monocytes/100 WBC (Bld) 6.7 % 1.7 - 12.0 % [facility] NEUTROPHILS ABSOLUTE AUTO 8.3 High [facility] Neutrophils/100 WBC (Bld) 73.2 % 43.0 - 75.0 % [facility] Platelet mean volume (Bld) [Entitic vol] 10.1 fL 9.5 - 13.5 fL [facility] TBH EO # 0.1 [facility] TB PLT 326 [facility] RBC 4.21 [facility] WBC 11.4 High [facility] ALL THYROID STIM HORMONEon 1 06-06-2023 Interpretation and review of laboratory results Abnormal [facility] TSH Qn 0.333 m[IU]/L Low [facility] ALL THYROXINE (T4) FREEon Free T4 [Mass/Vol] 1.01 ng/dL 0.76 - 1. 46 ng/dL [facility] APTTon 04-06-2024 aPTT Coag (Bld) [Time] 25.6 s [facility] HEMOGLOBIN A1Con 024 Glucose [Mass/Vol] 134 mg/dL [facility] HbA1c (Bld) [Mass fraction] 6.3 % High 4.5 - 6.2 % [facility] Comment on above: ADA RECOMMENDED LIMI T 4.0 - 6.0 ADA THERAPEUTIC TARGET < 7.0 ACTION SUGGESTED > 7.0 Interpretation and review of laboratory results Abnormal [facility] No Panel Informationon 04-06 [facility] SRMCOH PROTHROMBIN TIME INR W/O COUMon 04-06-2024 PT Coag (PPP) [Time] 9.6 s [facility] INR <0.93 [facility] Comment on above: DESIRED INR: 2.0-3.0 CONDITIONS NOT LISTED BELOW 2.5-3.5 FOR PROSTHETIC HEART VALVE REPLACEMENT 2.5-3.5 RECURRENT THROMBOSIS [facility]H PREG QUANT HCGon 024 HCG QUANTITATIVE <1 mIU/mL [facility] Comment on above: 5-50 0.2-1 WEEK 50-500 1-2 WEEKS 100-5,000 2-3 WEEKS 500-10,000 3-4 WEEKS 1,000-50,000 4-5 WEEKS 10,000-100,000 5-6 WEEKS 15,000-200,000 6-8 WEEKS 10,000-100,000 2-3 MONTHS CNPNon 04-02-2024 CNPN Normal [place] 25(OH)D3 SerPl-mCncon 2023 25-hydroxyvitamin D3 [Mass/Vol] 19.9 ng/mL Low 31.0-80.0 [place] Comment on above: Order Comment: Speci men Type: BLOOD SPECIMENOrdering Facility: [facility] Address: [address] [place] [address] Result Comment: Clas sification of 25 [place] Vitamin D status:Deficiency/Insufficiency: < or = 30 ng/ml.Sufficiency/Optimal Levels: 31-80 ng/mLToxicity: > 100 ng/mL.Test performed by chemiluminescent immunoassay. Performed By: #### 1 989-3 ####[facility] LABIA [id number] [place] [address] [place] [facility] BLOOD TB SCREENon 03-23-2024 M. tuberculosis tuberculin stim IFN-g Ql (Bld) Negative Normal [place] Comment on above: Order Comment: Speci men Type: BLOOD SPECIMENOrdering Facility: [facility] Address: [address] [place] [address] Performed By: #### I NFTBP ####[facility] LABCLIA [id number] [place] [address] [place] MITOGEN MINUS NIL >10.00 Normal >=0.50 [facility] Comment on above: Order Comment: Speci men Type: BLOOD SPECIMENOrdering Facility: [facility] Address: [address] [place] [address] Performed By: #### I NFTBP ####[facility] LABCLIA [id number] [place] [address] [place] TB GAMMA INTERPRETATION Normal [place] Comment on above: Order Comment: Speci men Type: BLOOD SPECIMENOrdering Facility: [facility] Address: [address] [place] [address] Performed By: #### I NFTBP ####[facility] LABCLIA [id number] [place] [address] [place] TB NIL <0.00 Normal <=8.00 [place] Comment on above: Order Comment: Speci men Type: BLOOD SPECIMENOrdering Facility: [facility] Address: [address] [place] [address] Performed By: #### I NFTBP ####[facility] LABCLIA [id number] [place] [address] [place] TB1 AG MINUS NIL 0.00 IU/mL Normal <0.35 [facility] Comment on above: Order Comment: Speci men Type: BLOOD SPECIMENOrdering Facility: [facility] Address: [address] [place] [address] Performed By: #### I NFTBP ####[facility] LABCLIA [id number] [place] [address] [place] TB2 AG MINUS NIL 0.00 IU/mL Normal <0.35 [facility] Comment on above: Order Comment: Speci men Type: BLOOD SPECIMENOrdering Facility: [facility] Address: [address] [place] [address] Performed By: #### I NFTBP ####[facility] LABCLIA [id number] [place] [address] [place] Bacteria Bld Culton 03-23-20 24 Bacteria identified Cx Nom (Bld) CULTURE, BLOOD: No growth 5 days Normal [place] Comment on above: Performed By: #### 6 00-7 ####[facility] LABCLIA [id number] [facility] [id number] [id number] [place] CBC W Auto Differential pane l (Bld)on 03-23-2024 Basophils (Bld) [#/Vol] 0.06 10*3/uL Normal <0.11 [place] Comment on above: Order Comment: Speci men Type: BLOOD SPECIMENOrdering Facility: [facility] Address: [address] [place] [address] Performed By: #### 5 7021-8 ####[facility] LABIA [id number] [place] [address] Basophils/100 WBC (Bld) 0.5 % Normal [place] Comment on above: Order Comment: Speci men Type: BLOOD SPECIMENOrdering Facility: [facility] Address: [address] [place] [address] Performed By: #### 5 7021-8 ####[facility] LABIA [id number] [place] [address] Differential cell count method Nom (Bld) Auto Normal [place] Comment on above: Order Comment: Speci men Type: BLOOD SPECIMENOrdering Facility: [facility] Address: [address] [place] [address] Performed By: #### 5 7021-8 ####[facility] LABIA [id number] [place] [address] Eosinophils (Bld) [#/Vol] 0.13 10*3/uL Normal <0.46 [place] Comment on above: Order Comment: Speci men Type: BLOOD SPECIMENOrdering Facility: [facility] Address: [address] [place] [address] Performed By: #### 5 7021-8 ####[facility] LABIA [id number] [place] [address] Eosinophils/100 WBC (Bld) 1.0 % Normal [place] Comment on above: Order Comment: Speci men Type: BLOOD SPECIMENOrdering Facility: [facility] Address: [address] [place] [address] Performed By: #### 5 7021-8 ####[facility] LABCLIA [id number] [place] [address] Erythrocyte distribution width (RBC) [Ratio] 15.2 % High 11.5-15.0 [place] Comment on above: Order Comment: Speci men Type: BLOOD SPECIMENOrdering Facility: [facility] Address: [address] [place] [address] Performed By: #### 5 7021-8 ####[facility] LABCLIA [id number] [place] [address] Hematocrit (Bld) [Volume fraction] 39.3 % Normal 36.0-46.0 [place] Comment on above: Order Comment: Speci men Type: BLOOD SPECIMENOrdering Facility: [facility] Address: [address] [place] [address] Performed By: #### 5 7021-8 ####[facility] LABIA [id number] [place] [address] Hemoglobin (Bld) [Mass/Vol] 13.1 g/dL Normal 11.5-15.5 [place] Comment on above: Order Comment: Speci men Type: BLOOD SPECIMENOrdering Facility: [facility] Address: [address] [place] [address] Performed By: #### 5 7021-8 ####[facility] LABCLIA [id number] [place] [address] Immature granulocytes (Bld) [#/Vol] 0.12 10*3/uL High <0.10 [place] Comment on above: Order Comment: Speci men Type: BLOOD SPECIMENOrdering Facility: [facility] Address: [address] [place] [address] Performed By: #### 5 7021-8 ####[facility] LABCLIA [id number] [place] [address] Immature granulocytes/100 WBC (Bld) 0.9 % Normal [place] Comment on above: Order Comment: Speci men Type: BLOOD SPECIMENOrdering Facility: [facility] Address: [address] [place] [address] Performed By: #### 5 7021-8 ####[facility] LABCLIA [id number] [place] [address] Lymphocytes (Bld) [#/Vol] 2.03 10*3/uL Normal 1.00-4.00 [place] Comment on above: Order Comment: Speci men Type: BLOOD SPECIMENOrdering Facility: [facility] Address: [address] [place] [address] Performed By: #### 5 7021-8 ####[facility] LABCLIA [id number] [place] [address] Lymphocytes/100 WBC (Bld) 15.7 % Normal [place] Comment on above: Order Comment: Speci men Type: BLOOD SPECIMENOrdering Facility: [facility] Address: [address] [place] [address] Performed By: #### 5 7021-8 ####[facility] LABCLIA [id number] [place] [address] MCH (RBC) [Entitic mass] 31.3 pg Normal 26.0-34.0 [place] Comment on above: Order Comment: Speci men Type: BLOOD SPECIMENOrdering Facility: [facility] Address: [address] [place] [address] Performed By: #### 5 7021-8 ####[facility] LABCLIA [id number] [place] [address] MCHC (RBC) [Mass/Vol] 33.3 g/dL Normal 30.5-36.0 [facility] Comment on above: Order Comment: Speci men Type: BLOOD SPECIMENOrdering Facility: [facility] Address: [address] [place] [address] Performed By: #### 5 7021-8 ####[facility] LABCLIA [id number] [place] [address] MCV (RBC) [Entitic vol] 93.8 fL Normal 80.0-100.0 [place] Comment on above: Order Comment: Speci men Type: BLOOD SPECIMENOrdering Facility: [facility] Address: [address] [place] [address] Performed By: #### 5 7021-8 ####[facility] LABCLIA [id number] [place] [address] Monocytes (Bld) [#/Vol] 0.65 10*3/uL Normal <0.87 [place] Comment on above: Order Comment: Speci men Type: BLOOD SPECIMENOrdering Facility: [facility] Address: [address] [place] [address] Performed By: #### 5 7021-8 ####[facility] LABCLIA [id number] [place] [address] Monocytes/100 WBC (Bld) 5.0 % Normal [place] Comment on above: Order Comment: Speci men Type: BLOOD SPECIMENOrdering Facility: [facility] Address: [address] [place] [address] Performed By: #### 5 7021-8 ####[facility] LABCLIA [id number] [place] [address] Neutrophils (Bld) [#/Vol] 9.90 10*3/uL High 1.45-7.50 [place] Comment on above: Order Comment: Speci men Type: BLOOD SPECIMENOrdering Facility: [facility] Address: [address] [place] [address] Performed By: #### 5 7021-8 ####[facility]CLIA [id number] [place] [address] Neutrophils/100 WBC (Bld) 76.9 % Normal [place] Comment on above: Order Comment: Speci men Type: BLOOD SPECIMENOrdering Facility: [facility] Address: [address] [place] [address] Performed By: #### 5 7021-8 ####[facility] LABCLIA [id number] [place] [address] Nucleated RBC (Bld) [#/Vol] 10*3/uL Normal <0.01 [place] Comment on above: Order Comment: Speci men Type: BLOOD SPECIMENOrdering Facility: [facility] Address: [address] [place] [address] Performed By: #### 5 7021-8 ####[facility] LABCLIA [id number] [place] [address] Nucleated RBC/100 WBC (Bld) [Ratio] 0.0 /100 WBC Normal [place] Comment on above: Order Comment: Speci men Type: BLOOD SPECIMENOrdering Facility: [facility] Address: [address] [place] [address] Performed By: #### 5 7021-8 ####[facility] LABCLIA [id number] [place] [address] Platelet mean volume (Bld) [Entitic vol] 10.0 fL Normal 9.0-12.7 [place] Comment on above: Order Comment: Speci men Type: BLOOD SPECIMENOrdering Facility: [facility] Address: [address] [place] [address] Performed By: #### 5 7021-8 ####[facility] LABCLIA [id number] [place] [address] Platelets (Bld) [#/Vol] 262 10*3/uL Normal 150-400 [place] Comment on above: Order Comment: Speci men Type: BLOOD SPECIMENOrdering Facility: [facility] Address: [address] [place] [address] Performed By: #### 5 7021-8 ####[facility] LABCLIA [id number] [place] [address] RBC (Bld) [#/Vol] 4.19 10*6/uL Normal 3.90-5.20 [facility] Comment on above: Order Comment: Speci men Type: BLOOD SPECIMENOrdering Facility: [facility] Address: [address] [place] [address] Performed By: #### 5 7021-8 ####[facility] LABCLIA [id number] [place] [address] WBC (Bld) [#/Vol] 12.89 10*3/uL High 3.70-11.00 [facility] Comment on above: Order Comment: Speci men Type: BLOOD SPECIMENOrdering Facility: [facility] Address: [address] [place] [address] Performed By: #### 5 7021-8 ####[facility] LABCLIA [id number] [place] [address] CNNURSEon 03-23-2024 CNNURSE Normal [place] CRP SerPl-mCncon 03-23-2024 CRP [Mass/Vol] 0.3 mg/dL Normal <0.9 [place] Comment on above: Order Comment: Speci men Type: BLOOD SPECIMENOrdering Facility: [facility] Address: [address] [place] [address] Performed By: #### 5 0190-8, 2276-4, 1987-09 ####[facility] LABCLIA [id number] [place] [id number] [place] Comprehensive metabolic 2000 panelon 03-23-2024 Albumin [Mass/Vol] 3.9 g/dL Normal 3.9-4.9 [facility] Comment on above: Order Comment: Speci men Type: BLOOD SPECIMENOrdering Facility: [facility] Address: [address] [place] [address] Performed By: #### 2 4323-8 ####[facility] LABCLIA [id number] [place] [address] [place] ALP [Catalytic activity/Vol] 70 U/L Normal 34-123 [place] Comment on above: Order Comment: Speci men Type: BLOOD SPECIMENOrdering Facility: [facility] Address: [address] [place] [address] Performed By: #### 2 4323-8 ####[facility] LABCLIA [id number] [place] [address] [place] ALT [Catalytic activity/Vol] 27 U/L Normal 7-38 [place] Comment on above: Order Comment: Speci men Type: BLOOD SPECIMENOrdering Facility: [facility] Address: [address] [place] [address] Performed By: #### 2 4323-8 ####[facility] LABCLIA [id number] [place] [address] [place] Anion gap [Moles/Vol] 15 mmol/L Normal 8-15 [facility] Comment on above: Order Comment: Speci men Type: BLOOD SPECIMENOrdering Facility: [facility] Address: [address] [place] [address] Performed By: #### 2 4323-8 ####[facility] LABCLIA [id number] [place] [address] [place] AST [Catalytic activity/Vol] 20 U/L Normal 13-35 [place] Comment on above: Order Comment: Speci men Type: BLOOD SPECIMENOrdering Facility: [facility] Address: [address] [place], [place] [address] Performed By: #### 2 4323-8 ####[facility] LABCLIA [id number] [place] [address] [place] Bilirubin [Mass/Vol] mg/dL Low 0.2-1.3 [facility] Comment on above: Order Comment: Speci men Type: BLOOD SPECIMENOrdering Facility: [facility] Address: [address] [place] [id number] Performed By: #### 2 4323-8 ####[facility] LABCLIA [id number] [place] [address] [place] Calcium [Mass/Vol] 9.2 mg/dL Normal 8.5-10.2 [facility] Comment on above: Order Comment: Speci men Type: BLOOD SPECIMENOrdering Facility: [facility] Address: [address] [place], [place] [address] Performed By: #### 2 4323-8 ####[facility] LABCLIA [id number] [place] [address] [place] Chloride [Moles/Vol] 104 mmol/L Normal 98-107 [facility] Comment on above: Order Comment: Speci men Type: BLOOD SPECIMENOrdering Facility: [facility] Address: [address] [place] [address] Performed By: #### 2 4323-8 ####[facility] LABCLIA [id number] [place] [address] [place] CO2 [Moles/Vol] 20 mmol/L Low 22-30 [place] Comment on above: Order Comment: Speci men Type: BLOOD SPECIMENOrdering Facility: [facility] Address: [address] [place], [place] [address] Performed By: #### 2 4323-8 ####[facility] LABCLIA [id number] [place] [id number] [place] Creatinine [Mass/Vol] 0.61 mg/dL Normal 0.58-0.96 [facility] Comment on above: Order Comment: Speci men Type: BLOOD SPECIMENOrdering Facility: [facility] Address: [address] [place], [place] [address] Performed By: #### 2 4323-8 ####[facility] LABCLIA [id number] [place] [id number] [place] Creatinine and Glomerular filtration rate.predicted panel (S/P/Bld) 114 mL/min/1.73m??? Normal >=60 [place] Comment on above: Order Comment: Semaj cortés Type: BLOOD SPECIMENOrdering Facility: [facility] Address: [address] [place] [address] Result Comment: Erin mated Glomerular Filtration Rate [...] GFR. Performed By: #### 2 4323-8 ####[facility] LABCLIA [id number] [place] [address] [place] Glucose [Mass/Vol] 152 mg/dL High 74-99 [facility] Comment on above: Order Comment: Semaj cortés Type: BLOOD SPECIMENOrdering Facility: [facility] Address: [address] [place] [address] Result Comment: The [place] Diabetes [employer] (ADA) provides guidance for cutoff [...] Standards of Medical Care in Diabetes 2016, [place] [employer]. Diabetes Care. 2016.39(Suppl 1). Performed By: #### 2 4323-8 ####[facility] LABIA [id number] [place] [address] [place] Potassium [Moles/Vol] 4.3 mmol/L Normal 3.7-5.1 [facility] Comment on above: Order Comment: Speci men Type: BLOOD SPECIMENOrdering Facility: [facility] Address: [address] [place] [address] Performed By: #### 2 4323-8 ####[facility] LABCLIA [id number] [place] [address] [place] Protein [Mass/Vol] 6.6 g/dL Normal 6.3-8.0 [facility] Comment on above: Order Comment: Speci men Type: BLOOD SPECIMENOrdering Facility: [facility] Address: [address] [place] [address] Performed By: #### 2 4323-8 ####[facility] LABCLIA [id number] [place] [address] [place] Sodium [Moles/Vol] 139 mmol/L Normal 136-144 [facility] Comment on above: Order Comment: Speci men Type: BLOOD SPECIMENOrdering Facility: [facility] Address: [address] [place] [address] Performed By: #### 2 4323-8 ####[facility] LABCLIA [id number] [place] [address] [place] Urea nitrogen [Mass/Vol] 20 mg/dL Normal 7-21 [place] Comment on above: Order Comment: Speci men Type: BLOOD SPECIMENOrdering Facility: [facility] Address: [address] [place] [address] Performed By: #### 2 4323-8 ####[facility] LABCLIA [id number] [place] [address] [place] ESR Westergren method (Bld) [Velocity]on 03-23-2024 ESR (Bld) [Velocity] 27 mm/h High 0-20 [facility] Comment on above: Order Comment: Speci men Type: BLOOD SPECIMENOrdering Facility: [facility] Address: [address] [place] [address] Performed By: #### 4 537-7 ####[facility] LABCLIA [id number] [place] [address] [place] Ferritin [facility] 2023 Ferritin [Mass/Vol] 33.3 ng/mL Normal 14.7-205.1 [facility] Comment on above: Order Comment: Speci men Type: BLOOD SPECIMENOrdering Facility: [facility] Address: [address] [place] [address] Performed By: #### 5 0190-8, 2276-4, 1987-09 ####[facility] LABIA [id number] [place] [address] [place] Folate SerPl-nc 03-23-20 Folate [Mass/Vol] 13.0 ng/mL Normal >4.7 [facility] Comment on above: Order Comment: Speci men Type: BLOOD SPECIMENOrdering Facility: [facility] Address: [address] [place] [address] Performed By: #### 2 132-9, 2284-8 ####[facility] LABIA [id number] [place] [address] [place] HCG ( test) Ql (U)o n 03-23-2024 Interpretation and review of laboratory results Normal [facility] Preg Test, Ur Negative Negative [facility] IMMUNOGLOBULINS,IGG,IGA,IGMo n 03-23-2024 IgA [Mass/Vol] 171 mg/dL Normal 70-400 [place] Comment on above: Order Comment: Speci men Type: BLOOD SPECIMENOrdering Facility: [facility] Address: [address] [place] [address] Performed By: #### S ERIMM ####[facility] LABIA [id number] [place] [address] [place] IgG [Mass/Vol] 476 mg/dL Low 700-1600 [place] Comment on above: Order Comment: Speci men Type: BLOOD SPECIMENOrdering Facility: [facility] Address: [address] [place] [address] Performed By: #### S ERIMM ####[facility] LABCLIA [id number] [place] [address] [place] IgM [Mass/Vol] 373 mg/dL High 40-230 [place] Comment on above: Order Comment: Speci men Type: BLOOD SPECIMENOrdering Facility: [facility] Address: [address] [place] [address] Performed By: #### S ERIMM ####[facility] LABCLIA [id number] [place] [address] [place] Iron and Iron binding capaci ty panelon 03-23-2024 Iron [Mass/Vol] 67 ug/dL Normal 41-186 [place] Comment on above: Order Comment: Speci men Type: BLOOD SPECIMENOrdering Facility: [facility] Address: [address] [place] [address] Performed By: #### 5 0190-8, 2275-08, 1987-09 ####[facility] LABIA [id number] [place] [address] [place] Iron binding capacity [Mass/Vol] 399 ug/dL High 232-386 [place] Comment on above: Order Comment: Speci men Type: BLOOD SPECIMENOrdering Facility: [facility] Address: [address] [place] [address] Performed By: #### 5 0190-8, 2275-08, 1987-09 ####[facility] LABIA [id number] [place] [address] [place] Iron/TIBC [Molar ratio] 16.8 % Normal 15.0-57.0 [place] Comment on above: Order Comment: Speci men Type: BLOOD SPECIMENOrdering Facility: [facility] Address: [address] [place] [address] Performed By: #### 5 0190-8, 2275-08, 1987- ####[facility] LABCLIA [id number] [place] [address] [place] Urinalysis macro (dipstick) panel (U)on 03-23-2024 Bilirubin, UA Negative Negative - 4(70) +++ mg/dL [facility] Blood, UA Positive Negative - 50 Dusty/mcL [facility] Comment on above: large Clarity, UA Cloudy [facility] Color, UA Dark Georgie [facility] Glucose, UA Positive Negative - 1999(110) ++++ mg/dL [facility] Comment on above: 100 mg Interpretation and review of laboratory results Abnormal [facility] Ketones, UA Negative Negative - 160(16) ++++ mg/dL [facility] Leukocytes, UA Positive Negative - 500+++ Andi/mcL [facility] Comment on above: small Nitrite, UA Negative Negative - Positive [facility] pH, UA 5.5 5 - 9 [facility] Protein, UA Positive Negative - 1999(20) ++++ mg/dL [facility] Comment on above: 30 mg Spec Grav, UA 1.03 1 - 1.03 [facility] Urobilinogen, UA 0.2 0.2 - 12 mg/dL [facility] Vit B12 [facility] 024 Cobalamin (Vitamin B12) [Mass/Vol] 607 pg/mL Normal 232-1245 [place] Comment on above: Order Comment: Speci men Type: BLOOD SPECIMENOrdering Facility: [facility] Address: [address] [place] [address] Performed By: #### 2 132-9, 2284-8 ####[facility] LABCLIA [id number] [place] [address] [place] Office Visiton 03-08-2024 Follow-up visit [id number] Aridana Haley 1980 F Date Provider Department Center 03/08/2024 Renny-CALOS MENDOZA [facility] Family History Problem Relation Age of Onset Heart failure Maternal Grandmother Heart attack Maternal Grandfather Family Status - Relation Status Age at Maternal Grandmother Maternal Grandfather Level of Service:32423 IN OFFICE/OUTPATIENT NEW MODERATE MDM 45 MINUTES Normal [facility] HCG ( test) IA.chandai d Ql (U)Ordered By: Adolfo Kang on 02-16-2024 HCG ( test) Ql (U) Negative [facility] HCG,Urineon 02-16-2024 Beta HCG ( test) Ql (U) Negative Normal [facility] Comment on above: Result Comment: PERF ORMED BY: [place] [address] MANAGER OFE CANNON M.D. Performed By: #### U HCG #### [address] ECG 12 [place] 07-13-2023 ECG revealed normal sinus rhythm [facility] Work Phone: CBC AUTO DIFFon 09-24-2022 BASO # 0.1 103/ul Normal 0.0-0.1 [facility] Comment on above: Performed By: #### U AMIC #### [facility] [address] [place] [address] [address] Manda York Basophils/100 WBC (Bld) 0.6 % Normal 0.2-2.0 [facility] Comment on above: Performed By: #### U AMIC #### [facility] [address] [place] [address] [address] Manda York EO # 0.1 103/ul Normal 0.0-0.7 [facility] Comment on above: Performed By: #### U AMIC #### [facility] [address] [place] [address] [address] Manda York Eosinophils/100 WBC (Bld) 0.6 % Critically low 0.9-7.0 [facility] Comment on above: Performed By: #### U AMIC #### [facility] [address] [place] [address] [address] Manda York Erythrocyte distribution width (RBC) [Ratio] 14.6 % Normal 11.0-15.0 [facility] Comment on above: Performed By: #### U AMIC #### [facility] [address] [place] [address] [address] Manda York Hematocrit (Bld) [Volume fraction] 43.4 % Normal 36.0-48.0 [facility] Comment on above: Performed By: #### U AMIC #### [facility] [address] [place] [address] [address] Manda York Hemoglobin (Bld) [Mass/Vol] 13.7 g/dL Normal 12.0-16.0 [facility] Comment on above: Performed By: #### U AMIC #### [facility] [address] [place] [address] [address] Manda York IG # 0.12 10e3/ul Critically high 0.00-0.03 [facility] Comment on above: Performed By: #### U AMIC #### [facility] [address] [place] [address] [address] Manda York IG % 0.8 % Critically high 0.0-0.5 [facility] Comment on above: Performed By: #### U AMIC #### [facility] [address] [place] [address] [address] Manda York LYMPH # 2.6 103/ul Normal 1.2-3.8 [facility] Comment on above: Performed By: #### U AMIC #### [facility] [address] [place] [address] [address] Manda Yrok Lymphocytes/100 WBC (Bld) 18.3 % Critically low 20.5-60.0 [facility] Comment on above: Performed By: #### U AMIC #### [facility] [address] [place] [address] [address] Manda York MANUAL DIFF REQ NO Normal [facility] Comment on above: Performed By: #### U AMIC #### [facility] [address] [place] [address] [address] Manda York MCH (RBC) [Entitic mass] 29.0 pg Normal 26.7-34.0 [facility] Comment on above: Performed By: #### U AMIC #### [facility] [address] [place] [address] [address] Manda York MCHC (RBC) [Mass/Vol] 31.6 g/dL Normal 29.9-35.2 [facility] Comment on above: Performed By: #### U AMIC #### [facility] [address] [place] [address] [address] Manda York MCV (RBC) [Entitic vol] 91.8 fL Normal 81.0-99.0 [facility] Comment on above: Performed By: #### U AMIC #### [facility] [address] [place] [address] [address] Manda York MONO # 0.7 103/ul Normal 0.3-0.8 [facility] Comment on above: Performed By: #### U AMIC #### [facility] [address] [place] [address] [address] Manda York Monocytes/100 WBC (Bld) 5.1 % Normal 1.7-12.0 [facility] Comment on above: Performed By: #### U AMIC #### [facility] [address] [place] [address] [address] Manda York NEUT # 10.6 103/ul Critically high 1.4-6.5 [facility] Comment on above: Performed By: #### U AMIC #### [facility] [address] [place] [address] [address] Manda York Neutrophils/100 WBC (Bld) 74.6 % Normal 43.0-75.0 [facility] Comment on above: Performed By: #### U AMIC #### [facility] [address] [place] [address] [address] Manda York Platelet mean volume (Bld) [Entitic vol] 9.4 fL Critically low 9.5-13.5 [facility] Comment on above: Performed By: #### U AMIC #### [facility] [address] [place] [address] [address] Manda York PLT 307 103/ul Normal 150-450 [facility] Comment on above: Performed By: #### U AMIC #### [facility] [address] [place] [address] [address] Manda York RBC 4.73 106/ul Normal 4.20-5.40 [facility] Comment on above: Performed By: #### U AMIC #### [facility] [address] [place] [address] [address] Manda York WBC 14.2 103/ul Critically high 4.0-11.0 [facility] Comment on above: Performed By: #### U AMIC #### [facility] [address] [place] [address] [address] Manda York FREE T4on 09-24-2022 Free T4 [Mass/Vol] 1.31 ng/dL Normal 0.76-1.46 [facility] Comment on above: Performed By: #### F T4 #### [facility] [address] [place] [address] Dr. Manda York GLYCOHEMOGLOBIN A1Con 2022 ADA RECOMMENDATION SEE BELOW Normal [facility] Comment on above: Result Comment: ADA RECOMMENDED LIMIT 4.0 - 6.0 ADA THERAPEUTIC TARGET < 7.0 ACTION SUGGESTED > 7.0 Performed By: #### A 1C #### [facility] [address] [place] [address] Dr. Manda York Glucose [Mass/Vol] 120 mg/dL Normal [facility] Comment on above: Performed By: #### A 1C #### [facility] [address] [place] [address] Dr. Manda York HbA1c (Bld) [Mass fraction] 5.8 % Normal 4.5-6.2 [facility] Comment on above: Performed By: #### A 1C #### [facility] [address] [place] [address] Dr. Manda York PREG QUANT HCGon 09-24-2022 HCG QUANT <1 Normal [facility] Comment on above: Performed By: #### F T4 #### [facility] [address] [place] [address] Dr. Manda York HCG RANGE SEE BELOW Normal [facility] Comment on above: Result Comment: 5-50 0.2-1 WEEK 50-500 1-2 WEEKS 100-5,000 2-3 WEEKS 500-10,000 3-4 WEEKS 1,000-50,000 4-5 WEEKS 10,000-100,000 5-6 WEEKS 15,000-200,000 6-8 WEEKS 10,000-100,000 2-3 MONTHS Performed By: #### F T4 #### [facility] [address] [place] [address] Dr. Manda York PROTIMEon 09-24-2022 INR Coag (PPP) [Relative time] {INR} Normal [facility] Comment on above: Performed By: #### F T4 #### [facility] [address] [place] [address] Dr. Manda York INR GUIDELINES SEE BELOW Normal [facility] Comment on above: Result Comment: SHERRY RED INR: 2.0 - 3.0 CONDITIONS NOT LISTED BELOW 2.5 - 3.5 FOR PROSTHETIC HEART VALVE REPLACEMENT 2.5 - 3.5 RECURRENT THROMBOSIS Performed By: #### F T4 #### [facility] [address] [place] [address] Dr. Manda York PT Coag (PPP) [Time] 9.6 s Normal 9.0-11.6 [facility] Comment on above: Performed By: #### F T4 #### [facility] [address] [place] [address] Dr. Manda York PTTon 09-24-2022 aPTT Coag (Bld) [Time] 28.2 s Normal 22.3-36.2 [facility] Comment on above: Performed By: #### F T4 #### [facility] [address] [place] [address] Dr. Manda York TSHon 09-24-2022 TSH 0.300 uIU/mL Critically low 0.358-3.740 [facility] Comment on above: Performed By: #### F T4 #### [facility] [address] [place] [address] Dr. Manda York US PELVIS TRANSVAGon 023 [...] by: AURORA SHAIKH Date: 2022-09-24 17:50 Normal [facility] PAP ACOG PANEL 2: 30 to 65on 09-18-2022 . . Normal [facility] Comment on above: Result Comment: Perf ormed at: WB Performed By: #### F T4 #### [facility] [address] [place] [address] Dr. Manda York Age Gdln ACOG Testing 30-65 Normal [facility] Comment on above: Performed By: #### F T4 #### [facility] [address] [place] [address] Dr. Manda York DIAGNOSIS: Comment Normal [facility] Comment on above: Result Comment: NEGA TIVE FOR INTRAEPITHELIAL LESION OR MALIGNANCY. Performed at: WB Performed By: #### F T4 #### [facility] [address] [address] [address] Manda York HPV Aptima Negative Normal Negative [facility] Comment on above: Result Comment: This nucleic acid amplification test detects fourteen high-risk HPV types (16,18,31,33,35,39,45,51,52,56,58,59,66,68) without differentiation. Performed at: =G Performed By: #### F T4 #### [facility] [address] [address] [address] Manda York HPV Genotype Reflex Comment Normal [facility] Comment on above: Result Comment: Crit eria not met, HPV Genotype not performed. Performed at: WB Performed By: #### F T4 #### [facility] [address] [address] [address] Manda York Methodology: Comment Normal [facility] [place] Comment on above: Result Comment: This liquid based ThinPrep(R) pap test was screened with the use of an image guided system. Performed at: WB Performed By: #### F T4 #### [facility] [address] [address] [address] Manda York Note: Comment Normal [facility] [place] Comment on above: Result Comment: The Pap smear is a screening test designed to aid in the detection of premalignant and malignant conditions of the uterine cervix. It is not a diagnostic procedure and should not be used as the sole means of detecting cervical cancer. Both false-positive and false-negative reports do occur. . Performed at: WB Performed By: #### F T4 #### [facility] [address] [address] [address] Manda York Performed by: Comment Normal [facility] Comment on above: Result Comment: Lorena Peters, Cso (ASCP) Performed at: WB Performed By: #### F T4 #### [facility] [address] [place] [address] Dr. Manda York Specimen adequacy: Comment Normal [facility] Comment on above: Result Comment: Sati sfactory for evaluation. Endocervical and/or squamous metaplastic cells (endocervical component) are present. Performed at: WB Performed By: #### F T4 #### [facility] [address] [address] [address] Manda York Cytology Cervical or vaginal smear or scraping studyOrdered By: Hazel Torres on 09-10-2022 [facility] MG MAMM SCREEN 3D SELENE CADon 09-01-2022 MG MAMM SCREEN 3D SELENE CAD Patient: ARIADNA HALEY Exam Date: 09/01/2022 : 1980 Gender:F Ordering : DR MANUEL FERRIS . Admission #: [id number] Family : Order #: [id number] CLICK HERE TO VIEW EXAM RADIOLOGY REPORT [...] stomach cancer at age 56. LOCATION: [facility] BREAST COMPOSITION: Scattered areas fibroglandular density. FINDINGS: [...] M.D. on 09/02/2022 at 12:32 Normal [facility] MRI KNEE RT WO CONon 11-09-2 022 [...] MANUEL GOMEZ Date: 2022-04-01 08:24 Normal [facility] PNEUMOCOCCAL IGG ABS, 23 SER OTYPESon 03-21-2022 Pneumococcal Interpretation See Note [facility] S. pneumoniae 1 IgG (S) [Mass/Vol] 0.27 ug/mL [facility] S. pneumoniae 12 IgG (S) [Mass/Vol] 0.08 ug/mL [facility] S. pneumoniae 14 IgG (S) [Mass/Vol] 0.19 ug/mL [facility] S. pneumoniae 17 IgG (S) [Mass/Vol] 1.72 ug/mL [facility] S. pneumoniae 19 IgG (S) [Mass/Vol] 1.52 ug/mL [facility] S. pneumoniae 2 IgG (S) [Mass/Vol] 0.44 ug/mL [facility] S. pneumoniae 20 IgG (S) [Mass/Vol] 1.53 ug/mL [facility] S. pneumoniae 22 IgG (S) [Mass/Vol] 0.99 ug/mL [facility] S. pneumoniae 23 IgG (S) [Mass/Vol] 0.14 ug/mL [facility] S. pneumoniae 3 IgG (S) [Mass/Vol] 0.36 ug/mL [facility] S. pneumoniae 34 IgG (S) [Mass/Vol] 5.77 ug/mL [facility] S. pneumoniae 4 IgG (S) [Mass/Vol] 0.06 ug/mL [facility] S. pneumoniae 43 IgG (S) [Mass/Vol] 0.93 ug/mL [facility] S. pneumoniae 5 IgG (S) [Mass/Vol] 0.89 ug/mL [facility] S. pneumoniae 8 IgG (S) [Mass/Vol] 0.58 ug/mL [facility] S. pneumoniae 9 IgG (S) [Mass/Vol] 0.4 ug/mL [facility] S. pneumoniae Greenlandic type 15B IgG (S) [Mass/Vol] 8.27 ug/mL [facility] S. pneumoniae Green[place]ic type 18C IgG (S) [Mass/Vol] 0.39 ug/mL [facility] S. pneumoniae [place]ic type 19A IgG (S) [Mass/Vol] 17.72 ug/mL [facility] S. pneumoniae [place] type 33F IgG (S) [Mass/Vol] 3.04 ug/mL [facility] S. pneumoniae Green[place]ic type 6B IgG (S) [Mass/Vol] 0.82 ug/mL [facility] S. pneumoniae [place]ic type 7F IgG (S) [Mass/Vol] 0.34 ug/mL [facility] S. pneumoniae [place]ic type 9V IgG (S) [Mass/Vol] 0.78 ug/mL [facility] XR KNEE RT 4V or [...] by: KRISTINA GARRETT Date: 2022-03-21 16:47 Normal [facility] [place] DIPHTHER/TETANUS ABon 2021 C. diphtheriae IgG Qn (S) 0.1 IU/mL [facility] C. tetani toxoid IgG IA Qn 1 IU/mL [facility] IGA BLDon 03-18-2022 IgA [Mass/Vol] 182 mg/dL 70 - 400 mg/dL [facility] IGE BLDon 03-18-2022 IgE Qn 12.3 kU/l <114.0 kU/l [facility] IGGon 03-18-2022 IgG [Mass/Vol] 618 mg/dL Low 700 - 1,600 mg/dL [facility] IGMon 03-18-2022 IgM [Mass/Vol] 514 mg/dL High 40 - 230 mg/dL [facility] Immunodeficiency panel FC (B ld)on 03-18-2022 CD3 cells (Bld) [#/Vol] 2841 cells/uL High 958 - 2,388 cells/uL [facility] CD3 cells/100 cells (Bld) 81 % 60 - 89 % [facility] CD3+CD4+ (T4 helper) cells (Bld) [#/Vol] 1621 cells/uL 533 - 1,674 cells/uL [facility] CD3+CD4+ (T4 helper) cells/100 cells (Bld) 46 % 34 - 61 % [facility] CD3+CD4+ (T4 helper) cells/CD3+CD8+ (T8 suppressor cells) cells (Bld) [# ratio] 1.55 % 1.10 - 3.25 [facility] CD3+CD8+ (T8 suppressor cells) cells (Bld) [#/Vol] 1049 cells/uL High 175 - 958 cells/uL [facility] CD3+CD8+ (T8 suppressor cells) cells/100 cells (Bld) 30 % 10 - 41 % [facility] CD3-CD16+CD56+ (Natural killer) cells (Bld) [#/Vol] 193 cells/uL 102 - 565 cells/uL [facility] CD3-CD16+CD56+ (Natural killer) cells/100 cells (Bld) 5 % 5 - 25 % [facility] CD3-CD19+ cells (Bld) [#/Vol] 475 cells/uL 75 - 660 cells/uL [facility] CD3-CD19+ cells/100 cells (Bld) 13 % 5 - 22 % [facility] CBC W Auto Differential pane l (Bld)on 03-17-2022 Basophils (Bld) [#/Vol] 0.07 10*3/uL <0.11 k/uL [facility] Basophils/100 WBC (Bld) 0.6 % [facility] Differential cell count method Nom (Bld) Auto [facility] Eosinophils (Bld) [#/Vol] 0.18 10*3/uL <0.46 k/uL [facility] Eosinophils/100 WBC (Bld) 1.6 % [facility] Erythrocyte distribution width (RBC) [Ratio] 14.6 % 11.5 - 15.0 % [facility] Hematocrit (Bld) [Volume fraction] 40.5 % 36.0 - 46.0 % [facility] Hemoglobin (Bld) [Mass/Vol] 13.0 g/dL 11.5 - 15.5 g/dL [facility] Immature granulocytes (Bld) [#/Vol] 0.06 10*3/uL <0.10 k/uL [facility] Immature granulocytes/100 WBC (Bld) 0.5 % [facility] Lymphocytes (Bld) [#/Vol] 2.97 10*3/uL 1.00 - 4.00 k/uL [facility] Lymphocytes/100 WBC (Bld) 26.9 % [facility] MCH (RBC) [Entitic mass] 28.4 pg 26.0 - 34.0 pg [facility] MCHC (RBC) [Mass/Vol] 32.1 g/dL 30.5 - 36.0 g/dL [facility] MCV (RBC) [Entitic vol] 88.4 fL 80.0 - 100.0 fL [facility] Monocytes (Bld) [#/Vol] 0.79 10*3/uL <0.87 k/uL [facility] Monocytes/100 WBC (Bld) 7.2 % [facility] Neutrophils (Bld) [#/Vol] 6.97 10*3/uL 1.45 - 7.50 k/uL [facility] Neutrophils/100 WBC (Bld) 63.2 % [facility] Nucleated RBC (Bld) [#/Vol] <0.01 k/uL [facility] Nucleated RBC/100 WBC (Bld) [Ratio] 0.0 /100 WBC [facility] Platelet mean volume (Bld) [Entitic vol] 9.9 fL 9.0 - 12.7 fL [facility] Platelets (Bld) [#/Vol] 314 10*3/uL 150 - 400 k/uL [facility] RBC (Bld) [#/Vol] 4.58 10*6/uL 3.90 - 5.2 0 m/uL [facility] WBC (Bld) [#/Vol] 11.04 10*3/uL High 3.70 - 11 .00 k/uL [facility] ECHOCARDIO M/2D COMPLETEon 1 ECHOCARDIO M/2D COMPLETE Patient: ARIADNA HALEY Exam Date: 03/12/2022 : 1980 Gender:F Ordering : DR MANUEL FERRIS . Admission #: [id number] Family : Order #: [id number] CLICK HERE TO VIEW EXAM ECHOCARDIOGRAM REPORT [...] M.D. on 03/16/2022 at 16:47 Normal [facility] INSULINon 03-11-2022 Insulin 17.8 uIU/mL Normal 2.6-24.9 [facility] Comment on above: Performed By: #### C BC #### [facility] [address] [address] [address] Manda York CBC AUTO DIFFon 03-09-2022 BASO # 0.1 103/ul Normal 0.0-0.1 [facility] [place] Comment on above: Performed By: #### C BC #### [facility] [address] [place] [address] Dr. Manda York Basophils/100 WBC (Bld) 0.4 % Normal 0.2-2.0 [facility] [place] Comment on above: Performed By: #### C BC #### [facility] [address] [place] [address] Dr. Manda York EO # 0.2 103/ul Normal 0.0-0.7 [facility] [place] Comment on above: Performed By: #### C BC #### [facility] [address] [place] [address] Dr. Manda York Eosinophils/100 WBC (Bld) 1.2 % Normal 0.9-7.0 [facility] [place] Comment on above: Performed By: #### C BC #### [facility] [address] [place] [address] Dr. Manda York Erythrocyte distribution width (RBC) [Ratio] 14.6 % Normal 11.0-15.0 [facility] [place] Comment on above: Performed By: #### C BC #### [facility] [address] [place] [address] Dr. Manda York Hematocrit (Bld) [Volume fraction] 39.2 % Normal 36.0-48.0 [facility] [place] Comment on above: Performed By: #### C BC #### [facility] [address] [place] [address] Dr. Manda York Hemoglobin (Bld) [Mass/Vol] 12.7 g/dL Normal 12.0-16.0 [facility] [place] Comment on above: Performed By: #### C BC #### [facility] [address] [place] [address] Dr. Manda York IG # 0.06 10e3/ul Critically high 0.00-0.03 [facility] Comment on above: Performed By: #### C BC #### [facility] [address] [place] [address] Dr. Manda York IG % 0.5 % Normal 0.0-0.5 [facility] [place] Comment on above: Performed By: #### C BC #### [facility] [address] [place] [address] Dr. Manda York LYMPH # 3.7 103/ul Normal 1.2-3.8 [facility] [place] Comment on above: Performed By: #### C BC #### [facility] [address] [place] [address] Dr. Manda York Lymphocytes/100 WBC (Bld) 31.0 % Normal 20.5-60.0 [facility] [place] Comment on above: Performed By: #### C BC #### [facility] [address] [place] [address] Dr. Manda York MANUAL DIFF REQ NO Normal [facility] Comment on above: Performed By: #### C BC #### [facility] [address] [place] [address] Dr. Manda York MCH (RBC) [Entitic mass] 28.9 pg Normal 26.7-34.0 [facility] [place] Comment on above: Performed By: #### C BC #### [facility] [address] [place] [address] Dr. Manda York MCHC (RBC) [Mass/Vol] 32.4 g/dL Normal 29.9-35.2 [facility] [place] Comment on above: Performed By: #### C BC #### [facility] [address] [place] [address] Dr. Manda York MCV (RBC) [Entitic vol] 89.1 fL Normal 81.0-99.0 [facility] [place] Comment on above: Performed By: #### C BC #### [facility] [address] [place] [address] Dr. Manda York MONO # 0.7 103/ul Normal 0.3-0.8 [facility] [place] Comment on above: Performed By: #### C BC #### [facility] [address] [address] [address] Manda York Monocytes/100 WBC (Bld) 5.8 % Normal 1.7-12.0 [facility] [place] Comment on above: Performed By: #### C BC #### [facility] [address] [address] [address] Manda York NEUT # 7.3 103/ul Critically high 1.4-6.5 [facility] Comment on above: Performed By: #### C BC #### [facility] [address] [address] [address] Manda York Neutrophils/100 WBC (Bld) 61.1 % Normal 43.0-75.0 [facility] [place] Comment on above: Performed By: #### C BC #### [facility] [address] [place] [address] Dr. Manda York Platelet mean volume (Bld) [Entitic vol] 9.7 fL Normal 9.5-13.5 [facility] [place] Comment on above: Performed By: #### C BC #### [facility] [address] [place] [address] Dr. Manda York PLT 297 103/ul Normal 150-450 [facility] [place] Comment on above: Performed By: #### C BC #### [facility] [address] [place] [address] Dr. Manda York RBC 4.40 106/ul Normal 4.20-5.40 [facility] Comment on above: Performed By: #### C BC #### [facility] [address] [place] [address] Dr. Manda York WBC 12.0 103/ul Critically high 4.0-11.0 [facility] Comment on above: Performed By: #### C BC #### [facility] [address] [place] [address] Dr. Manda York FREE THYROXINE INDEX T7on FTI 3.81 Normal 1.30-4.50 [facility] [place] Comment on above: Performed By: #### U AMIC #### [facility] [address] [address] [address] Manda York T3U 34.0 % Normal 30.0-39.0 [facility] [place] Comment on above: Performed By: #### U AMIC #### [facility] [address] [address] [address] Manda York T4 [Mass/Vol] 11.20 ug/dL Normal 4.80-13.90 [facility] Comment on above: Performed By: #### U AMIC #### [facility] [address] [address] [address] Manda York GLYCOHEMOGLOBIN A1Con 2021 ADA RECOMMENDATION SEE BELOW Normal [facility] Comment on above: Result Comment: ADA RECOMMENDED LIMIT 4.0 - 6.0 ADA THERAPEUTIC TARGET < 7.0 ACTION SUGGESTED > 7.0 Performed By: #### S LUIGI MELO #### [facility] [address] [address] [address] Manda York Glucose [Mass/Vol] 117 mg/dL Normal [facility] Comment on above: Performed By: #### S LEANN MELOC #### [facility] [address] [address] [address] Manda York HbA1c (Bld) [Mass fraction] 5.7 % Normal 4.5-6.2 [facility] [place] Comment on above: Performed By: #### LEANN PATRICKC #### [facility] [address] [address] [address] Manda York IRONon 03-09-2022 Iron [Mass/Vol] 61.0 ug/dL Normal 50.0-170.0 [facility] Comment on above: Performed By: #### C BC #### [facility] [address] [place] [address] Dr. Manda York LIPID PROFILEon 03-09-2022 CHOL-HDL RATIO NORM SEE BELOW Normal [facility] Comment on above: Result Comment: 3.3 - 4.4 LOW RISK 4.4 - 7.1 AVERAGE RISK 7.1 - 11.0 MODERATE RISK >11.0 HIGH RISK Performed By: #### U AMIC #### [facility] [address] [address] [address] Manda York Cholesterol [Mass/Vol] 260 mg/dL Critically high <=200 [facility] [place] Comment on above: Performed By: #### U AMIC #### [facility] [address] [place], [place] [address] Dr. Manda York Cholesterol in HDL [Mass/Vol] 38 mg/dL Critically low 40-60 [facility] [place] Comment on above: Performed By: #### U AMIC #### [facility] [address] [address] [address] Manda York Cholesterol in LDL [Mass/Vol] 170.8 mg/dL Normal [facility] [place] Comment on above: Performed By: #### U AMIC #### [facility] [address] [address] [address] Manda York Cholesterol.total/Chol esterol in HDL [Mass ratio] 6.8 {ratio} Normal [facility] [place] Comment on above: Performed By: #### U AMIC #### [facility] [address] [address] [address] Manda York HDL NORMAL > or = 60 mg/dl - LO W CARDIOVASCULAR RISK <40 mg/dl - HIGH CARDIOVASCULAR RISK Normal [facility] [place] Comment on above: Performed By: #### U AMIC #### [facility] [address] [address] [address] Manda York LDL CALC NORMAL SEE BELOW Normal [facility] Comment on above: Result Comment: <100 mg/dl OPTIMAL 100 - 129 mg/dl NEAR OR ABOVE OPTIMAL 130 - 159 mg/dl BORDERLINE HIGH 160 - 189 mg/dl HIGH >190 mg/dl VERY HIGH Performed By: #### U AMIC #### [facility] [address] [address] [address] Manda York Triglyceride [Mass/Vol] 256 mg/dL Critically high <=150 [facility] [place] Comment on above: Performed By: #### U AMIC #### [facility] [address] [address] [address] Manda York VLDL CALC 51.2 mg/dL Normal [facility] [place] Comment on above: Performed By: #### U AMIC #### [facility] [address] [address] [address] Manda York PROF 14(COMP METB)on 022 Albumin [Mass/Vol] 3.8 g/dL Normal 3.4-5.0 [facility] Comment on above: Performed By: #### U AMIC #### [facility] [address] [address] [address] Manda York Albumin/Globulin [Mass ratio] 1.0 {ratio} Normal [facility] [place] Comment on above: Performed By: #### U AMIC #### [facility] [address] [address] [address] Manda York ALP [Catalytic activity/Vol] 66 U/L Normal 46-116 [facility] [place] Comment on above: Performed By: #### U AMIC #### [facility] [address] [address] [address] Manda York ALT [Catalytic activity/Vol] 27 U/L Normal 14-59 [facility] [place] Comment on above: Performed By: #### U AMIC #### [facility] [address] [address] [address] Manda York Anion gap [Moles/Vol] 11.8 mmol/L Normal [facility] Comment on above: Performed By: #### U AMIC #### [facility] [address] [address] [address] Manda York AST [Catalytic activity/Vol] 9 U/L Critically low 15-37 [facility] [place] Comment on above: Performed By: #### U AMIC #### [facility] [address] [address] [address] Manda York Bilirubin [Mass/Vol] 0.2 mg/dL Normal 0.2-1.0 [facility] [place] Comment on above: Performed By: #### U AMIC #### [facility] [address] [address] [address] Manda York Calcium [Mass/Vol] 9.1 mg/dL Normal 8.5-10.1 [facility] Comment on above: Performed By: #### U AMIC #### [facility] [address] [address] [address] Manda York Chloride [Moles/Vol] 101 mmol/L Normal 98-107 [facility] Comment on above: Performed By: #### U AMIC #### [facility] [address] [address] [address] Manda York CO2 [Moles/Vol] 26.1 mmol/L Normal 21.0-32.0 [facility] [place] Comment on above: Performed By: #### U AMIC #### [facility] [address] [place] [address] Dr. Manda York Creatinine [Mass/Vol] 0.80 mg/dL Normal 0.55-1.02 [facility] [place] Comment on above: Performed By: #### U AMIC #### [facility] [address] [address] [address] Manda York EGFR-AF CUBAN >60 Normal >=60 [facility] Comment on above: Performed By: #### U AMIC #### [facility] [address] [place] [address] Dr. Manda York EGFR-NON AF CUBAN >60 Normal >=60 [facility] [place] Comment on above: Performed By: #### U AMIC #### [facility] [address] [address] [address] Manda York Globulin (S) [Mass/Vol] 3.8 g/dL Normal [facility] Comment on above: Performed By: #### U AMIC #### [facility] [address] [address] [address] Manda York Glucose [Mass/Vol] 93 mg/dL Normal 74-106 [facility] Comment on above: Performed By: #### U AMIC #### [facility] [address] [place] [address] Dr. Manda York Potassium [Moles/Vol] 3.9 mmol/L Normal 3.5-5.1 [facility] Comment on above: Performed By: #### U AMIC #### [facility] [address] [address] [address] Manda York Protein [Mass/Vol] 7.6 g/dL Normal 6.4-8.2 [facility] Comment on above: Performed By: #### U AMIC #### [facility] [address] [address] [address] Manda York Sodium [Moles/Vol] 135 mmol/L Critically low 136-145 [facility] Comment on above: Performed By: #### U AMIC #### [facility] [address] [address] [address] Manda York Urea nitrogen [Mass/Vol] 10.0 mg/dL Normal 7.0-18.0 [facility] Comment on above: Performed By: #### U AMIC #### [facility] [address] [address] [address] Manda York Urea nitrogen/Creatinine [Mass ratio] 12.5 mg/mg Normal [facility] Comment on above: Performed By: #### U AMIC #### [facility] [address] [address] [address] Manda York TSHon 03-09-2022 TSH 0.610 uIU/mL Normal 0.358-3.740 [facility] Comment on above: Performed By: #### U AMIC #### [facility] [address] [address] [address] Manda York B2 MICROGLOBULIN Bon 022 [id number] [Mass/Vol] 1.8 ug/mL 0.8 - 2.4 mg/L [facility] FERRITIN BLDon 03-05-2022 Ferritin [Mass/Vol] 33.2 ng/mL 14.7 - 2 05.1 ng/mL [facility] FOLATE SERUMon 03-05-2022 Folate [Mass/Vol] 6.6 ng/mL >4.7 ng/mL [facility] Iron and Iron binding capaci ty panelon 03-05-2022 Iron [Mass/Vol] 49 ug/dL 41 - 186 ug/dL [facility] Iron binding capacity [Mass/Vol] 392 ug/dL High 232 - 386 ug/dL [facility] Iron/TIBC [Molar ratio] 12.5 % Low 15.0 - 57.0 % [facility] CBC W Auto Differential pane l (Bld)on 03-04-2022 Basophils (Bld) [#/Vol] 0.07 10*3/uL <0.11 k/uL [facility] Basophils/100 WBC (Bld) 0.6 % [facility] Differential cell count method Nom (Bld) Auto [facility] Eosinophils (Bld) [#/Vol] 0.19 10*3/uL <0.46 k/uL [facility] Eosinophils/100 WBC (Bld) 1.7 % [facility] Erythrocyte distribution width (RBC) [Ratio] 14.7 % 11.5 - 15.0 % [facility] Hematocrit (Bld) [Volume fraction] 40.0 % 36.0 - 46.0 % [facility] Hemoglobin (Bld) [Mass/Vol] 13.0 g/dL 11.5 - 15.5 g/dL [facility] [facility] Immature granulocytes (Bld) [#/Vol] 0.07 10*3/uL <0.10 k/uL [facility] Immature granulocytes/100 WBC (Bld) 0.6 % [facility] Lymphocytes (Bld) [#/Vol] 3.31 10*3/uL 1.00 - 4.00 k/uL [facility] Lymphocytes/100 WBC (Bld) 30.2 % [facility] MCH (RBC) [Entitic mass] 28.9 pg 26.0 - 34.0 pg [facility] MCHC (RBC) [Mass/Vol] 32.5 g/dL 30.5 - 36.0 g/dL [facility] MCV (RBC) [Entitic vol] 88.9 fL 80.0 - 100.0 fL [facility] Monocytes (Bld) [#/Vol] 0.70 10*3/uL <0.87 k/uL [facility] Monocytes/100 WBC (Bld) 6.4 % [facility] Neutrophils (Bld) [#/Vol] 6.63 10*3/uL 1.45 - 7.50 k/uL [facility] Neutrophils/100 WBC (Bld) 60.5 % [facility] Nucleated RBC (Bld) [#/Vol] <0.01 k/uL [facility] Nucleated RBC/100 WBC (Bld) [Ratio] 0.0 /100 WBC [facility] Platelet mean volume (Bld) [Entitic vol] 9.6 fL 9.0 - 12.7 fL [facility] Platelets (Bld) [#/Vol] 355 10*3/uL 150 - 400 k/uL [facility] RBC (Bld) [#/Vol] 4.50 10*6/uL 3.90 - 5.2 0 m/uL [facility] WBC (Bld) [#/Vol] 10.97 10*3/uL 3.70 - 11 .00 k/uL [facility] Calcium.ionized [Moles/Vol]o n 03-04-2022 Calcium.ionized (Bld) [Mass/Vol] 1.26 mmol/L 1.08 - 1.30 mmol/L [facility] Calcium.ionized adjusted to pH 7.4 (Bld) [Moles/Vol] 1.25 mmol/L 1.08 - 1.30 mmol/L [facility] Comprehensive metabolic 2000 panelon 03-04-2022 Albumin [Mass/Vol] 4.3 g/dL 3.9 - 4.9 g/dL [facility] ALP [Catalytic activity/Vol] 70 U/L 34 - 123 U/L [facility] ALT [Catalytic activity/Vol] 26 U/L 7 - 38 U/L [facility] Anion gap [Moles/Vol] 7 mmol/L Low 9 - 18 mmol/L [facility] AST [Catalytic activity/Vol] 12 U/L Low 13 - 35 U/L [facility] Bilirubin [Mass/Vol] 0.2 mg/dL 0.2 - 1 .3 mg/dL [facility] Calcium [Mass/Vol] 9.3 mg/dL 8.5 - 10. 2 mg/dL [facility] Chloride [Moles/Vol] 103 mmol/L 97 - 10 5 mmol/L [facility] CO2 [Moles/Vol] 28 mmol/L 22 - 30 mmol/L [facility] Creatinine [Mass/Vol] 0.69 mg/dL 0.58 - 0.96 mg/dL [facility] Estimated Glomerular Filtration Rate 112 mL/min/1.73m >=60 mL/min/1.73m [facility] Glucose [Mass/Vol] 100 mg/dL High 74 - 99 mg/dL [facility] Potassium [Moles/Vol] 3.9 mmol/L 3.7 - 5.1 mmol/L [facility] Protein [Mass/Vol] 7.0 g/dL 6.3 - 8.0 g/dL [facility] Sodium [Moles/Vol] 138 mmol/L 136 - 144 mmol/L [facility] Urea nitrogen [Mass/Vol] 12 mg/dL 7 - 21 mg/dL [facility] LD LACTATE DEHYDROon 022 LDH [Catalytic activity/Vol] 135 U/L 135 - 214 U/L [facility] PHOSPHORUS INORGANICon 03-04 Phosphate [Mass/Vol] 3.2 mg/dL 2.7 - 4 .8 mg/dL [facility] URIC ACID BLOODon 03-04-2022 Urate [Mass/Vol] 5.2 mg/dL 2.5 - 6.6 mg/dL [facility] IMMUNOGLOBULINS IGA/IGM/IGG/ IGE QUANTITAon 02-20-2022 Immunoglobulin A, Qn, Serum 189 mg/dL Normal 87-352 [facility] [place] Comment on above: Result Comment: Perf ormed at: CB Performed By: #### LUIGI PATRICK #### [facility] [address] [address] [address] Manda York Immunoglobulin E, Total 10 IU/mL Normal 6-495 [facility] [place] Comment on above: Result Comment: Perf ormed at: BN Performed By: #### LUIGI PATRICK #### [facility] [address] [address] [address] Manda York Immunoglobulin G, Qn, Serum 598 mg/dL Normal 586-1602 [facility] [place] Comment on above: Result Comment: Perf ormed at: CB Performed By: #### LUIGI PATRICK #### [facility] [address] [address] [address] Manda York Immunoglobulin M, Qn, Serum 493 mg/dL Critically high 26-217 [facility] [place] Comment on above: Result Comment: Perf ormed at: CB Performed By: #### LUIGI PATRICK #### [facility] [address] [place] [address] Dr. Manda York CHRISTIAN by IFAon 02-19-2022 Antinuclear Antibodies, IFA Negative Normal [facility] [place] Comment on above: Result Comment: Nega tive <1:80 Borderline 1:80 Positive >1:80 ICAP nomenclature: AC-0 For more information about Hep-2 cell patterns use ANApatterns.org, the official website for the International Consensus on Antinuclear Antibody (CHRISTIAN) Patterns (ICAP). Performed By: #### S LUIGI MELO #### [facility] [address] [place] [address] Dr. Manda York THYROID ANTIBODIESon 022 Thyroglobulin Antibody <1.0 Normal 0.0-0.9 [facility] Comment on above: Result Comment: Thyr oglobulin Antibody measured by Melon Methodology Performed By: #### F T4 #### [facility] [address] [place] [address] Dr. Manda York Thyroid Peroxidase (TPO) Ab <8 Normal 0-34 [facility] [place] Comment on above: Performed By: #### F T4 #### [facility] [address] [address] [address] Manda York PROTEIN ELECTROPHERESISon Albumin [Mass/Vol] 3.2 g/dL Normal 2.9-4.4 [facility] Comment on above: Performed By: #### F T4 #### [facility] [address] [address] [address] Manda York Albumin/Globulin [Mass ratio] 1.0 {ratio} Normal 0.7-1.7 [facility] [place] Comment on above: Performed By: #### F T4 #### [facility] [address] [place] [address] Dr. Manda York Mnlsq-5-Gnihtjpo 0.2 g/dL Normal 0.0-0.4 [facility] [place] Comment on above: Performed By: #### F T4 #### [facility] [address] [place] [address] Dr. Manda York Ubmez-6-Pvuxqacs 0.9 g/dL Normal 0.4-1.0 [facility] [place] Comment on above: Performed By: #### F T4 #### [facility] [address] [address] [address] Manda York Beta Globulin 1.2 g/dL Normal 0.7-1.3 [facility] Comment on above: Performed By: #### F T4 #### [facility] [address] [address] [address] Manda York Gamma Globulin 0.9 g/dL Normal 0.4-1.8 [facility] Comment on above: Performed By: #### F T4 #### [facility] [address] [address] [address] Manda York Globulin (S) [Mass/Vol] 3.2 g/dL Normal 2.2-3.9 [facility] [place] Comment on above: Performed By: #### F T4 #### [facility] [address] [place] [address] Dr. Manda York M-Jose De Jesus Not Observed Normal Not Observed [facility] Comment on above: Performed By: #### F T4 #### [facility] [address] [address] [address] Manda York PDF . Normal [facility] [place] Comment on above: Performed By: #### F T4 #### [facility] [address] [place] [address] Dr. Manda York Please note: Comment Normal [facility] [place] Comment on above: Result Comment: Prot ein electrophoresis scan will follow via computer, mail, or research physicist delivery. Performed By: #### F T4 #### [facility] [address] [place] [address] Dr. Manda York Protein [Mass/Vol] 6.4 g/dL Normal 6.0-8.5 [facility] Comment on above: Performed By: #### F T4 #### [facility] [address] [address] [address] Manda York SLE PROFILE Aon 02-16-2022 Anti-DNA (DS) Ab Qn 9 IU/mL Normal 0-9 [facility] Comment on above: Result Comment: Nega tive <5 Equivocal 5 - 9 Positive >9 Performed By: #### LUIGI PATRICK #### [facility] [address] [place] [address] Dr. Manda York Antichromatin Antibodies <0.2 Normal 0.0-0.9 [facility] [place] Comment on above: Performed By: #### LUIGI PATRICK #### [facility] [address] [place] [address] Dr. Manda York RA Latex Turbid. <10.0 Normal <14.0 [facility] [place] Comment on above: Performed By: #### LUIGI PATRICK #### [facility] [address] [place] [address] Dr. Manda York TUB CHUCKER Antibodies <0.2 Normal 0.0-0.9 [facility] Comment on above: Performed By: #### LUIGI PATRICK #### [facility] [address] [place] [address] Dr. Manda York Sjogryaniv's Anti-SS-A <0.2 Normal 0.0-0.9 [facility] Comment on above: Performed By: #### LUIGI PATRICK #### [facility] [address] [place] [address] Dr. Manda York Sjogryaniv'lucinda Anti-SS-B <0.2 Normal 0.0-0.9 [facility] Comment on above: Performed By: #### LUIGI PATRICK #### [facility] [address] [place] [address] Dr. Manda York Schneider Antibodies <0.2 Normal 0.0-0.9 [facility] [place] Comment on above: Performed By: #### LUIGI PATRICK #### [facility] [address] [place] [address] Dr. Manda York ANTISTREPTOLYSIN O AB (ASO)o n 02-15-2022 Antistreptolysin O Ab 49.6 IU/mL Normal 0.0-200.0 [facility] [place] Comment on above: Performed By: #### A SOAB #### [facility] [address] [place] [address] Dr. Manda York MICROALBUMIN URINEon 022 Albumin, Urine <3.0 Normal Not Estab. [facility] Comment on above: Result Comment: Ve rified by repeat analysis Performed By: #### C BC #### [facility] [address] [place] [address] Dr. Manda York T4, T3U, FTI LABCORPon 02-15 Free Thyroxine Index 2.6 Normal 1.2-4.9 [facility] [place] Comment on above: Performed By: #### LUIGI PATRICK #### [facility] [address] [place] [address] Dr. Manda York T3 Uptake 26 % Normal 24-39 [facility] [place] Comment on above: Performed By: #### LUIGI PATRICK #### [facility] [address] [place] [address] Dr. Manda York T4 [Mass/Vol] 9.9 ug/dL Normal 4.5-12.0 [facility] [place] Comment on above: Performed By: #### LUIGI PATRICK #### [facility] [address] [place] [address] Dr. Manda York CBC AUTO DIFFon 02-14-2022 BASO # 0.1 103/ul Normal 0.0-0.1 [facility] [place] Comment on above: Performed By: #### U AMIC #### [facility] [address] [place] [address] Dr. Manda York Basophils/100 WBC (Bld) 0.6 % Normal 0.2-2.0 [facility] Comment on above: Performed By: #### U AMIC #### [facility] [address] [place] [address] Dr. Manda York EO # 0.3 103/ul Normal 0.0-0.7 [facility] [place] Comment on above: Performed By: #### U AMIC #### [facility] [address] [place] [address] Dr. Manda York Eosinophils/100 WBC (Bld) 3.4 % Normal 0.9-7.0 [facility] [place] Comment on above: Performed By: #### U AMIC #### [facility] [address] [place] [address] Dr. Manda York Erythrocyte distribution width (RBC) [Ratio] 14.6 % Normal 11.0-15.0 [facility] [place] Comment on above: Performed By: #### U AMIC #### [facility] [address] [place] [address] Dr. Manda York Hematocrit (Bld) [Volume fraction] 39.1 % Normal 36.0-48.0 [facility] [place] Comment on above: Performed By: #### U AMIC #### [facility] [address] [place] [address] Dr. Manda York Hemoglobin (Bld) [Mass/Vol] 12.4 g/dL Normal 12.0-16.0 [facility] [place] Comment on above: Performed By: #### U AMIC #### [facility] [address] [place] [address] Dr. Manda York IG # 0.03 10e3/ul Normal 0.00-0.03 [facility] [place] Comment on above: Performed By: #### U AMIC #### [facility] [address] [place] [address] Dr. Manda York IG % 0.3 % Normal 0.0-0.5 [facility] [place] Comment on above: Performed By: #### U AMIC #### [facility] [address] [place] [address] Dr. Manda York LYMPH # 3.6 103/ul Normal 1.2-3.8 [facility] Comment on above: Performed By: #### U AMIC #### [facility] [address] [place] [address] Dr. Manda York Lymphocytes/100 WBC (Bld) 39.9 % Normal 20.5-60.0 [facility] Comment on above: Performed By: #### U AMIC #### [facility] [address] [place] [address] Dr. Manda York MANUAL DIFF REQ NO Normal [facility] Comment on above: Performed By: #### U AMIC #### [facility] [address] [place] [address] Dr. Manda York MCH (RBC) [Entitic mass] 28.4 pg Normal 26.7-34.0 [facility] [place] Comment on above: Performed By: #### U AMIC #### [facility] [address] [place] [address] Dr. Manda York MCHC (RBC) [Mass/Vol] 31.7 g/dL Normal 29.9-35.2 [facility] [place] Comment on above: Performed By: #### U AMIC #### [facility] [address] [place] [address] Dr. Manda York MCV (RBC) [Entitic vol] 89.7 fL Normal 81.0-99.0 [facility] [place] Comment on above: Performed By: #### U AMIC #### [facility] [address] [place] [address] Dr. Manda York MONO # 0.7 103/ul Normal 0.3-0.8 [facility] [place] Comment on above: Performed By: #### U AMIC #### [facility] [address] [place] [address] Dr. Manda York Monocytes/100 WBC (Bld) 7.3 % Normal 1.7-12.0 [facility] [place] Comment on above: Performed By: #### U AMIC #### [facility] [address] [place] [address] Dr. Manda York NEUT # 4.4 103/ul Normal 1.4-6.5 [facility] Comment on above: Performed By: #### U AMIC #### [facility] [address] [place] [address] Dr. Manda York Neutrophils/100 WBC (Bld) 48.5 % Normal 43.0-75.0 [facility] [place] Comment on above: Performed By: #### U AMIC #### [facility] [address] [place] [address] Dr. Manda York Platelet mean volume (Bld) [Entitic vol] 10.1 fL Normal 9.5-13.5 [facility] [place] Comment on above: Performed By: #### U AMIC #### [facility] [address] [place] [address] Dr. Manda York PLT 310 103/ul Normal 150-450 [facility] [place] Comment on above: Performed By: #### U AMIC #### [facility] [address] [place] [address] Dr. Manda York RBC 4.36 106/ul Normal 4.20-5.40 [facility] [place] Comment on above: Performed By: #### U AMIC #### [facility] [address] [place] [address] Dr. Manda York WBC 9.0 103/ul Normal 4.0-11.0 [facility] [place] Comment on above: Performed By: #### U AMIC #### [facility] [address] [place] [address] Dr. Manda York CRPon 02-14-2022 CRP [Mass/Vol] mg/L Normal <=1.0 [facility] Comment on above: Performed By: #### U AMIC #### [facility] [address] [place] [address] Dr. Manda York CULTURE URINEon 02-14-2022 CULTURE URINE Culture Observations : LIGHT GROWTH OF MIXED GENITAL AMBER. NO POTENTIAL PATHOGENS SEEN. Normal [facility] [place] Comment on above: Performed By: #### C BC #### [facility] [address] [place] [address] Dr. Manda York PROF 14(COMP METB)on 022 Albumin [Mass/Vol] 3.5 g/dL Normal 3.4-5.0 [facility] Comment on above: Performed By: #### U AMIC #### [facility] [address] [place] [address] Dr. Manda York Albumin/Globulin [Mass ratio] 1.0 {ratio} Normal [facility] [place] Comment on above: Performed By: #### U AMIC #### [facility] [address] [address] [address] Manda York ALP [Catalytic activity/Vol] 71 U/L Normal 46-116 [facility] [place] Comment on above: Performed By: #### U AMIC #### [facility] [address] [address] [address] Manda York ALT [Catalytic activity/Vol] 46 U/L Normal 14-59 [facility] [place] Comment on above: Performed By: #### U AMIC #### [facility] [address] [address] [address] Manda York Anion gap [Moles/Vol] 11.6 mmol/L Normal [facility] Comment on above: Performed By: #### U AMIC #### [facility] [address] [place] [address] Dr. Manda York AST [Catalytic activity/Vol] 15 U/L Normal 15-37 [facility] [place] Comment on above: Performed By: #### U AMIC #### [facility] [address] [place] [address] Dr. Manda York Bilirubin [Mass/Vol] 0.2 mg/dL Normal 0.2-1.0 [facility] [place] Comment on above: Performed By: #### U AMIC #### [facility] [address] [place] [address] Dr. Manda York Calcium [Mass/Vol] 8.7 mg/dL Normal 8.5-10.1 [facility] Comment on above: Performed By: #### U AMIC #### [facility] [address] [place] [address] Dr. Manda York Chloride [Moles/Vol] 104 mmol/L Normal 98-107 [facility] [place] Comment on above: Performed By: #### U AMIC #### [facility] [address] [place] [address] Dr. Manda York CO2 [Moles/Vol] 25.1 mmol/L Normal 21.0-32.0 [facility] [place] Comment on above: Performed By: #### U AMIC #### [facility] [address] [place] [address] Dr. Manda York Creatinine [Mass/Vol] 0.80 mg/dL Normal 0.55-1.02 [facility] Comment on above: Performed By: #### U AMIC #### [facility] [address] [address] [address] Manda York EGFR-AF CUBAN >60 Normal >=60 [facility] [place] Comment on above: Performed By: #### U AMIC #### [facility] [address] [address] [address] Manda York EGFR-NON AF CUBAN >60 Normal >=60 [facility] [place] Comment on above: Performed By: #### U AMIC #### [facility] [address] [address] [address] Manda York Globulin (S) [Mass/Vol] 3.6 g/dL Normal [facility] [place] Comment on above: Performed By: #### U AMIC #### [facility] [address] [address] [address] Manda York Glucose [Mass/Vol] 92 mg/dL Normal 74-106 [facility] Comment on above: Performed By: #### U AMIC #### [facility] [address] [address] [address] Manda York Potassium [Moles/Vol] 3.7 mmol/L Normal 3.5-5.1 [facility] Comment on above: Performed By: #### U AMIC #### [facility] [address] [address] [address] Manda York Protein [Mass/Vol] 7.1 g/dL Normal 6.4-8.2 [facility] Comment on above: Performed By: #### U AMIC #### [facility] [address] [address] [address] Manda York Sodium [Moles/Vol] 137 mmol/L Normal 136-145 [facility] Comment on above: Performed By: #### U AMIC #### [facility] [address] [address] [address] Manda York Urea nitrogen [Mass/Vol] 17.0 mg/dL Normal 7.0-18.0 [facility] [place] Comment on above: Performed By: #### U AMIC #### [facility] [address] [place] [address] Dr. Manda York Urea nitrogen/Creatinine [Mass ratio] 21.2 mg/mg Normal [facility] Comment on above: Performed By: #### U AMIC #### [facility] [address] [place] [address] Dr. Manda York SED RATE WESTERGRENon 2021 SED RATE 40 mm/hr Critically high <=20 [facility] Comment on above: Performed By: #### S EDR #### [facility] [address] [place] [address] Dr. Manda York TSHon 02-14-2022 TSH 1.155 uIU/mL Normal 0.358-3.740 [facility] [place] Comment on above: Performed By: #### U AMIC #### [facility] [address] [place] [address] Dr. Manda York UA RANDOM W/MICROSCOPICon BACTERIA NONE SEEN Normal NONE SEEN [facility] [place] Comment on above: Performed By: #### U AMIC #### [facility] [address] [place] [address] Dr. Manda York Bilirubin Ql (U) Negative Normal NEGATIVE [facility] Comment on above: Performed By: #### U AMIC #### [facility] [address] [place] [address] Dr. Manda York CAST NONE SEEN Normal NONE SEEN [facility] [place] Comment on above: Performed By: #### U AMIC #### [facility] [address] [place] [address] Dr. Manda York Clarity (U) CLEAR Normal CLEAR [facility] Comment on above: Performed By: #### U AMIC #### [facility] [address] [place] [address] Dr. Manda York Color (U) LT. YELLOW Normal YELLOW [facility] Comment on above: Performed By: #### U AMIC #### [facility] [address] [address] [address] Manda York Crystals LM Nom (Urine sed) NONE SEEN Normal NONE SEEN [facility] Comment on above: Performed By: #### U AMIC #### [facility] [address] [address] [address] Manda York Epithelial cells LM Ql (Urine sed) RARE Normal NONE SEEN /RARE [facility] Comment on above: Performed By: #### U AMIC #### [facility] [address] [address] [address] Manda York Glucose Ql (U) Negative Normal NEGATIVE [facility] Comment on above: Performed By: #### U AMIC #### [facility] [address] [place] [address] Dr. Manda York Hemoglobin Ql (U) Negative Normal NEGATIVE [facility] Comment on above: Performed By: #### U AMIC #### [facility] [address] [place] [address] Dr. Manda York Ketones Ql (U) Negative Normal NEGATIVE [facility] Comment on above: Performed By: #### U AMIC #### [facility] [address] [address] [address] Manda York LEUKOCYTES Negative Normal NEGATIVE [facility] Comment on above: Performed By: #### U AMIC #### [facility] [address] [place] [address] Dr. Manda York MUCOUS NONE SEEN Normal NONE SEEN [facility] [place] Comment on above: Performed By: #### U AMIC #### [facility] [address] [place] [address] Dr. Manda York Nitrite Ql (U) Negative Normal NEGATIVE [facility] Comment on above: Performed By: #### U AMIC #### [facility] [address] [place] [address] Dr. Manda York pH (U) 6.0 [pH] Normal 5-9 [facility] Comment on above: Performed By: #### U AMIC #### [facility] [address] [place] [address] Dr. Manda York RBC NONE SEEN Abnormal 0-2 [facility] Comment on above: Performed By: #### U AMIC #### [facility] [address] [address] [address] Manda York SPEC GRAVITY 1.005 Normal 1.005-<=1.025 [facility] Comment on above: Performed By: #### U AMIC #### [facility] [address] [address] [address] Manda York UA PROTEIN Negative Normal NEGATIVE/ TRACE [facility] Comment on above: Performed By: #### U AMIC #### [facility] [address] [address] [address] Manda York Urobilinogen Qn (U) 0.2 {Carmella'U}/dL Normal 0.2 - 1. 0 [facility] [place] Comment on above: Performed By: #### U AMIC #### [facility] [address] [place] [address] Dr. Manda York WBC NONE SEEN Normal NONE SEEN [facility] Comment on above: Performed By: #### U AMIC #### [facility] [address] [place] [address] Dr. Manda oYrk URIC ACID SERUMon 02-14-2022 Urate [Mass/Vol] 4.2 mg/dL Normal 2.6-6.0 [facility] [place] Comment on above: Performed By: #### U AMIC #### [facility] [address] [place] [address] Dr. Manda York VITAMIN D 25 OHon 02-14-2022 VIT D 25-OH 22.4 ng/mL Normal [facility] Comment on above: Performed By: #### F T4 #### [facility] [address] [place] [address] Dr. Manda York VIT D RANGES SEE BELOW Normal [facility] Comment on above: Result Comment: <20 ng/mL Vit D deficient 20 - <30 ng/mL Vit D insufficient 30 - 100 ng/mL Vit D sufficient >100 ng/mL Potential Toxicity Performed By: #### F T4 #### [facility] [address] [place] [address] Dr. Manda York METANEPHRINES [facility]. QNT 24 H R URINEon 11-28-2021 Metanephrine, U,24hr Comment Normal 36-209 [facility] Comment on above: Result Comment: No t otal volume submitted. Unable to calculate 24 hour result. Performed By: #### LEANN PATRICKC #### [facility] [address] [place] [address] Dr. Manda York Metanephrine, Ur 57 ug/L Normal Undefined [facility] Comment on above: Performed By: #### LEANN PATRICKC #### [facility] [address] [place] [address] Dr. Manda York Normetanephr.,U,24h Comment Normal 131-612 [facility] Comment on above: Result Comment: No t otal volume submitted. Unable to calculate 24 hour result. Performed By: #### LEANN PATRICKC #### [facility] [address] [place] [address] Dr. Manda York Normetanephrine, Ur 116 ug/L Normal Undefined The [facility] Comment on above: Performed By: #### LEANN PATRICKC #### [facility] [address] [place] [address] Dr. Manda York METANEPHRINES PLASMA FREEon 11-27-2021 Metanephrine, Pl 22.1 pg/mL Normal 0.0-88.0 [facility] [place] Comment on above: Performed By: #### LEANN PATRICKC #### [facility] [address] [place] [address] Dr. Manda York Normetanephrine, Pl 50.7 pg/mL Normal 0.0-218.9 [facility] Comment on above: Performed By: #### LEANN PATRICKC #### [facility] [address] [place] [address] Dr. Manda York CMV PLASMA PCRon 11-19-2021 CMV Quant DNA PCR (Plasma) Negative Normal Negative [facility] [place] Comment on above: Result Comment: No C MV DNA detected. The quantitative range of this assay is 200 to 1 million IU/mL. Performed By: #### [facility] #### [facility] [address] [place] [address] Dr. Manda York log10 CMV Qn DNA Pl UPTCAL Normal [facility] Comment on above: Result Comment: Unab le to calculate result since non-numeric result obtained for component test. Performed By: #### [facility] #### [facility] [address] [place] [address] Dr. Manda York CMV AB IGMon 11-18-2021 Cytomegalovirus (CMV) Ab, IgM 43.2 AU/mL Critically high 0.0-29.9 [facility] [place] Comment on above: Result Comment: Nega tive <30.0 Equivocal 30.0 - 34.9 Positive >34.9 A positive result is generally indicative of acute infection, reactivation or persistent IgM production. Performed By: #### [facility] #### [facility] [address] [place] [address] Dr. Manda York CMV AB, IGGon 11-18-2021 Cytomegalovirus (CMV) Ab, IgG >10.00 Critically high 0.00-0.59 [facility] [place] Comment on above: Result Comment: Nega tive <0.60 Equivocal 0.60 - 0.69 Positive >0.69 Performed By: #### C MVIGG #### [facility] [address] [place] [address] Dr. Manda York CBC AUTO DIFFon 11-17-2021 BASO # 0.1 103/ul Normal 0.0-0.1 [facility] [place] Comment on above: Performed By: #### C BC #### [facility] [address] [place] [address] Dr. Manda York Basophils/100 WBC (Bld) 0.6 % Normal 0.2-2.0 [facility] [place] Comment on above: Performed By: #### C BC #### [facility] [address] [place] [address] Dr. Manda York EO # 0.2 103/ul Normal 0.0-0.7 [facility] [place] Comment on above: Performed By: #### C BC #### [facility] [address] [place] [address] Dr. Manda York Eosinophils/100 WBC (Bld) 2.3 % Normal 0.9-7.0 [facility] [place] Comment on above: Performed By: #### C BC #### [facility] [address] [place] [address] Dr. Manda York Erythrocyte distribution width (RBC) [Ratio] 14.2 % Normal 11.0-15.0 [facility] [place] Comment on above: Performed By: #### C BC #### [facility] [address] [place] [address] Dr. Manda York Hematocrit (Bld) [Volume fraction] 40.2 % Normal 36.0-48.0 [facility] [place] Comment on above: Performed By: #### C BC #### [facility] [address] [place] [address] Dr. Manda York Hemoglobin (Bld) [Mass/Vol] 12.8 g/dL Normal 12.0-16.0 [facility] [place] Comment on above: Performed By: #### C BC #### [facility] [address] [place] [address] Dr. Manda York IG # 0.02 10e3/ul Normal 0.00-0.03 [facility] [place] Comment on above: Performed By: #### C BC #### [facility] [address] [place] [address] Dr. Manda York IG % 0.2 % Normal 0.0-0.5 [facility] Comment on above: Performed By: #### C BC #### [facility] [address] [place] [address] Dr. Manda York LYMPH # 2.5 103/ul Normal 1.2-3.8 [facility] Comment on above: Performed By: #### C BC #### [facility] [address] [place] [address] Dr. Manda York Lymphocytes/100 WBC (Bld) 24.9 % Normal 20.5-60.0 [facility] [place] Comment on above: Performed By: #### C BC #### [facility] [address] [place] [address] Dr. Manda York MANUAL DIFF REQ NO Normal [facility] Comment on above: Performed By: #### C BC #### [facility] [address] [place] [address] Dr. Manda York MCH (RBC) [Entitic mass] 27.9 pg Normal 26.7-34.0 [facility] [place] Comment on above: Performed By: #### C BC #### [facility] [address] [place] [address] Dr. Manda York MCHC (RBC) [Mass/Vol] 31.8 g/dL Normal 29.9-35.2 [facility] Comment on above: Performed By: #### C BC #### [facility] [address] [place] [address] Dr. Manda York MCV (RBC) [Entitic vol] 87.6 fL Normal 81.0-99.0 [facility] [place] Comment on above: Performed By: #### C BC #### [facility] [address] [place] [address] Dr. Manda York MONO # 0.6 103/ul Normal 0.3-0.8 [facility] [place] Comment on above: Performed By: #### C BC #### [facility] [address] [place] [address] Dr. Manda York Monocytes/100 WBC (Bld) 6.3 % Normal 1.7-12.0 [facility] [place] Comment on above: Performed By: #### C BC #### [facility] [address] [place] [address] Dr. Manda York NEUT # 6.5 103/ul Normal 1.4-6.5 [facility] Comment on above: Performed By: #### C BC #### [facility] [address] [place] [address] Dr. Manda York Neutrophils/100 WBC (Bld) 65.7 % Normal 43.0-75.0 [facility] [place] Comment on above: Performed By: #### C BC #### [facility] [address] [place] [address] Dr. Manda York Platelet mean volume (Bld) [Entitic vol] 10.1 fL Normal 9.5-13.5 [facility] [place] Comment on above: Performed By: #### C BC #### [facility] [address] [place] [address] Dr. Manda York PLT 304 103/ul Normal 150-450 [facility] Comment on above: Performed By: #### C BC #### [facility] [address] [place] [address] Dr. Manda York RBC 4.59 106/ul Normal 4.20-5.40 [facility] [place] Comment on above: Performed By: #### C BC #### [facility] [address] [place] [address] Dr. Manda York WBC 9.9 103/ul Normal 4.0-11.0 [facility] [place] Comment on above: Performed By: #### C BC #### [facility] [address] [place] [address] Dr. Manda York PROF 14(COMP METB)on 022 Albumin [Mass/Vol] 3.7 g/dL Normal 3.4-5.0 [facility] Comment on above: Performed By: #### C BC #### [facility] [address] [place] [address] Dr. Manda York Albumin/Globulin [Mass ratio] 1.0 {ratio} Normal [facility] [place] Comment on above: Performed By: #### C BC #### [facility] [address] [place] [address] Dr. Manda York ALP [Catalytic activity/Vol] 65 U/L Normal 46-116 [facility] Comment on above: Performed By: #### C BC #### [facility] [address] [place] [address] Dr. Manda York ALT [Catalytic activity/Vol] 35 U/L Normal 14-59 [facility] [place] Comment on above: Performed By: #### C BC #### [facility] [address] [place] [address] Dr. Manda York Anion gap [Moles/Vol] 13.0 mmol/L Normal [facility] Comment on above: Performed By: #### C BC #### [facility] [address] [place] [address] Dr. Manda York AST [Catalytic activity/Vol] 12 U/L Critically low 15-37 [facility] [place] Comment on above: Performed By: #### C BC #### [facility] [address] [address] [address] Manda York Bilirubin [Mass/Vol] 0.2 mg/dL Normal 0.2-1.0 [facility] [place] Comment on above: Performed By: #### C BC #### [facility] [address] [place] [address] Dr. Manda York Calcium [Mass/Vol] 8.7 mg/dL Normal 8.5-10.1 [facility] Comment on above: Performed By: #### C BC #### [facility] [address] [place] [address] Dr. Manda York Chloride [Moles/Vol] 104 mmol/L Normal 98-107 [facility] [place] Comment on above: Performed By: #### C BC #### [facility] [address] [place] [address] Dr. Manda York CO2 [Moles/Vol] 24.9 mmol/L Normal 21.0-32.0 [facility] [place] Comment on above: Performed By: #### C BC #### [facility] [address] [place] [address] Dr. Manda York Creatinine [Mass/Vol] 0.77 mg/dL Normal 0.55-1.02 [facility] [place] Comment on above: Performed By: #### C BC #### [facility] [address] [place] [address] Dr. Manda York EGFR-AF CUBAN >=60 Normal >=60 [facility] Comment on above: Performed By: #### C BC #### [facility] [address] [place] [address] Dr. Manda oYrk EGFR-NON AF CUBAN >=60 Normal >=60 [facility] [place] Comment on above: Performed By: #### C BC #### [facility] [address] [address] [address] Manda York Globulin (S) [Mass/Vol] 3.8 g/dL Normal [facility] [place] Comment on above: Performed By: #### C BC #### [facility] [address] [address] [address] Manda York Glucose [Mass/Vol] 110 mg/dL Critically high 74-106 T [facility] Comment on above: Performed By: #### C BC #### [facility] [address] [address] [address] Manda York Potassium [Moles/Vol] 3.9 mmol/L Normal 3.5-5.1 [facility] [place] Comment on above: Performed By: #### C BC #### [facility] [address] [address] [address] Manda York Protein [Mass/Vol] 7.5 g/dL Normal 6.4-8.2 [facility] Comment on above: Performed By: #### C BC #### [facility] [address] [address] [address] Manda York Sodium [Moles/Vol] 138 mmol/L Normal 136-145 [facility] Comment on above: Performed By: #### C BC #### [facility] [address] [address] [address] Manda York Urea nitrogen [Mass/Vol] 17.0 mg/dL Normal 7.0-18.0 [facility] [place] Comment on above: Performed By: #### C BC #### [facility] [address] [address] [address] Manda York Urea nitrogen/Creatinine [Mass ratio] 22.1 mg/mg Normal [facility] [place] Comment on above: Performed By: #### C BC #### [facility] [address] [address] [address] Manda York SED RATE [facility] 2021 SED RATE 45 mm/hr Critically high <=20 [facility] Comment on above: Performed By: #### F T4 #### [facility] [address] [address] [address] Manda York CHRISTIAN EIA W/REFLEX 5 BIOMARKER Son 10-06-2021 CHRISTIAN Direct Positive Abnormal Negative [facility] [place] Comment on above: Performed By: #### C BC #### [facility] [address] [place] [address] Dr. Manda York Anti-DNA (DS) Ab Qn 10 IU/mL Critically high 0-9 [facility] [place] Comment on above: Result Comment: Nega tive <5 Equivocal 5 - 9 Positive >9 Performed By: #### C BC #### [facility] [address] [place] [address] Dr. Manda York TUB CHUCKER Antibodies <0.2 Normal 0.0-0.9 [facility] Comment on above: Performed By: #### C BC #### [facility] [address] [place] [address] Dr. Manda York SEE BELOW: Comment Normal [facility] [place] Comment on above: Result Comment: Auto antibody [...] Sm (anti-Schneider) SLE 15 - 30% --------- TUB CHUCKER Mixed Connective Tissue Disease 95% (U1 nRNP, SLE 30 - 50% anti-ribonucleoprotein) Polymyositis and/or Dermatomyositis 20% --------- Scl-70 (antiDNA Scleroderma (diffuse) 20 - 35% topoisomerase) Crest 13% --------- Felicita-1 Polymyositis and/or Dermatomyositis 20 - 40% --------- Centromere B Scleroderma - Crest variant 80% Performed By: #### C BC #### [facility] [address] [place] [address] Dr. Manda York Sjogren'lucinda Anti-SS-A <0.2 Normal 0.0-0.9 [facility] Comment on above: Performed By: #### C BC #### [facility] [address] [place] [address] Dr. Manda York Sjogren'lucinda Anti-SS-B <0.2 Normal 0.0-0.9 [facility] Comment on above: Performed By: #### C BC #### [facility] [address] [place] [address] Dr. Manda York Schneider Antibodies <0.2 Normal 0.0-0.9 [facility] [place] Comment on above: Performed By: #### C BC #### [facility] [address] [place] [address] Dr. Manda York CMV PLASMA PCRon 10-06-2021 CMV Quant DNA PCR (Plasma) Negative Normal Negative [facility] [place] Comment on above: Result Comment: No C MV DNA detected. The quantitative range of this assay is 200 to 1 million IU/mL. Performed By: #### C MVPL #### [facility] [address] [place] [address] Dr. Manda York log10 CMV Qn DNA Pl UPTCAL Normal [facility] Comment on above: Result Comment: Unab le to calculate result since non-numeric result obtained for component test. Performed By: #### C MVPL #### [facility] [address] [place] [address] Dr. Manda York CMV AB IGMon 2021 Cytomegalovirus (CMV) Ab, IgM 35.5 AU/mL Critically high 0.0-29.9 [facility] [place] Comment on above: Result Comment: Nega tive <30.0 Equivocal 30.0 - 34.9 Positive >34.9 A positive result is generally indicative of acute infection, reactivation or persistent IgM production. Performed By: #### S LUIGI MELO #### [facility] [address] [place] [address] Dr. Manda York CMV AB, IGGon 2021 Cytomegalovirus (CMV) Ab, IgG 6.30 U/mL Critically high 0.00-0.59 [facility] [place] Comment on above: Result Comment: Nega tive <0.60 Equivocal 0.60 - 0.69 Positive >0.69 Performed By: #### [facility] #### [facility] [address] [place] [address] Dr. Manda York CBC AUTO DIFFon 10-03-2021 BASO # 0.1 103/ul Normal 0.0-0.1 [facility] [place] Comment on above: Performed By: #### C BC #### [facility] [address] [place] [address] Dr. Manda York Basophils/100 WBC (Bld) 0.7 % Normal 0.2-2.0 [facility] [place] Comment on above: Performed By: #### C BC #### [facility] [address] [place] [address] Dr. Manda York EO # 0.2 103/ul Normal 0.0-0.7 [facility] [place] Comment on above: Performed By: #### C BC #### [facility] [address] [place] [address] Dr. Manda York Eosinophils/100 WBC (Bld) 2.0 % Normal 0.9-7.0 [facility] [place] Comment on above: Performed By: #### C BC #### [facility] [address] [place] [address] Dr. Manda York Erythrocyte distribution width (RBC) [Ratio] 14.4 % Normal 11.0-15.0 [facility] [place] Comment on above: Performed By: #### C BC #### [facility] [address] [place] [address] Dr. Manda York Hematocrit (Bld) [Volume fraction] 37.2 % Normal 36.0-48.0 [facility] [place] Comment on above: Performed By: #### C BC #### [facility] [address] [place] [address] Dr. Manda York Hemoglobin (Bld) [Mass/Vol] 12.3 g/dL Normal 12.0-16.0 [facility] [place] Comment on above: Performed By: #### C BC #### [facility] [address] [place] [address] Dr. Manda York IG # 0.02 10e3/ul Normal 0.00-0.03 [facility] [place] Comment on above: Performed By: #### C BC #### [facility] [address] [place] [address] Dr. Manda York IG % 0.2 % Normal 0.0-0.5 [facility] [place] Comment on above: Performed By: #### C BC #### [facility] [address] [place] [address] Dr. Manda York LYMPH # 2.1 103/ul Normal 1.2-3.8 [facility] Comment on above: Performed By: #### C BC #### [facility] [address] [place] [address] Dr. Manda York Lymphocytes/100 WBC (Bld) 26.4 % Normal 20.5-60.0 [facility] [place] Comment on above: Performed By: #### C BC #### [facility] [address] [place] [address] Dr. Manda York MANUAL DIFF REQ NO Normal [facility] Comment on above: Performed By: #### C BC #### [facility] [address] [place] [address] Dr. Manda York MCH (RBC) [Entitic mass] 29.2 pg Normal 26.7-34.0 [facility] [place] Comment on above: Performed By: #### C BC #### [facility] [address] [place] [address] Dr. Manda York MCHC (RBC) [Mass/Vol] 33.1 g/dL Normal 29.9-35.2 [facility] [place] Comment on above: Performed By: #### C BC #### [facility] [address] [place] [address] Dr. Manda York MCV (RBC) [Entitic vol] 88.4 fL Normal 81.0-99.0 [facility] [place] Comment on above: Performed By: #### C BC #### [facility] [address] [place] [address] Dr. Manda York MONO # 0.5 103/ul Normal 0.3-0.8 [facility] [place] Comment on above: Performed By: #### C BC #### [facility] [address] [place] [address] Dr. Manda York Monocytes/100 WBC (Bld) 6.7 % Normal 1.7-12.0 [facility] [place] Comment on above: Performed By: #### C BC #### [facility] [address] [place] [address] Dr. Manda York NEUT # 5.2 103/ul Normal 1.4-6.5 [facility] [place] Comment on above: Performed By: #### C BC #### [facility] [address] [place] [address] Dr. Manda York Neutrophils/100 WBC (Bld) 64.0 % Normal 43.0-75.0 [facility] Comment on above: Performed By: #### C BC #### [facility] [address] [place] [place] [address] Dr. Manda York Platelet mean volume (Bld) [Entitic vol] 10.5 fL Normal 9.5-13.5 [facility] [place] Comment on above: Performed By: #### C BC #### [facility] [address] [place] [address] Dr. Manda York PLT 265 103/ul Normal 150-450 [facility] Comment on above: Performed By: #### C BC #### [facility] [address] [place] [address] Dr. Manda York RBC 4.21 106/ul Normal 4.20-5.40 [facility] Comment on above: Performed By: #### C BC #### [facility] [address] [place] [address] Dr. Manda York WBC 8.1 103/ul Normal 4.0-11.0 [facility] [place] Comment on above: Performed By: #### C BC #### [facility] [address] [address] [address] Manda York CRPon 10-03-2021 CRP [Mass/Vol] mg/L Normal <=1.0 [facility] Comment on above: Performed By: #### F T4 #### [facility] [address] [address] [address] Manda York SED RATE HOMESTEADERGREN 2021 SED RATE 34 mm/hr Critically high <=20 [facility] Comment on above: Performed By: #### C BC #### [facility] [address] [address] [address] Manda York CHLORIDE (POC)Ordered By: Jae Black on 10-07-2020 Chloride [Moles/Vol] 106 mmol/L 98 - 10 7 mmol/L [employer] Work Phone: Catheterization and angiogra phy procedure details panelOrdered By: Jonas Black on 10-07-2020 Cardiac Diagnostic Report Demographics Patient TERA Torres Date of Study 10/07/2020 Name Date of 1980 Gender Female Age 40 year(s) Race Room [id number]^GINO Height: 67 inch, 170.18 cm Number Corporate [id number] Weight: 234 pounds, 106.1 kg ID # Patient [id number] BSA: 2.16 m^2 BMI: 36.65 kg/m^2 Acct # MR # [id number] Performing Jonas Black Physician Referring # Physician [...] Right coronary angiography. Contrast Material: - Isovue 21740 ml Fluoroscopy Time: Diagnostic: 2:12 minutes. Total: [...] assessed as CCS II according to the Togolese clinical classification. Hemodynamics Condition: Baseline Room Air [...] + + !Aortic (more content not included)... [facility] Phone: Gwyn Norris Incoming Cardio Results From [facility]/ - 10/07/2020 10:37 AM EDT Cardiac Diagnostic Report Demographics Patient TERA Torres Date of Study 10/07/2020 Name Date of 1980 Gender Female Age 40 year(s) Race Room [id number]^LEYDI^JONAS Height: 67 inch, 170.18 cm Number Corporate [id number] Weight: 234 pounds, 106.1 kg ID # Patient [id number] BSA: 2.16 m^2 BMI: 36.65 kg/m^2 Acct # MR # [id number] Performing Jonas Black Physician Referring # Physician [...] Right coronary angiography. Contrast Material: - Isovue 85150 ml Fluoroscopy Time: Diagnostic: 2:12 minutes. Total: [...] assessed as CCS II according to the Togolese clinical classification. Hemodynamics Condition: Baseline Room Air [...] +--------- + + Shunts Oxygen Values O2 Cenwuxxc203.4O2 Ysplrqijeoa503.52 [employer] Phone: [facility] Phone: [facility] [facility] Phone: Creatinine W/GFR Point of Ca reOrdered By: Jonas Black on 10-07-2020 Creatinine [Mass/Vol] 0.64 mg/dL 0.51 - 1.19 mg/dL [facility] [facility] Phone: GFR Non- >60 >60 mL/min [employer] [facility] Phone: GFR/1.73 sq M.predicted MDRD (S/P/Bld) [Vol rate/Area] mL/min/{1.73_m2} >60 mL/min [employer] [facility] Phone: GFR/1.73 sq M.predicted MDRD (S/P/Bld) [Vol rate/Area] [employer] Phone: Comment on above: Average GFR for 40-4 9 years old: 99 mL/min/1.73sq m Chronic Kidney Disease: <60 mL/min/1.73sq m Kidney failure: <15 mL/min/1.73sq m eGFR calculated using average adult body mass. Additional eGFR calculator available at: http://www.[employer].Product World/multiple_crcl_2012.htm Hemoglobin and hematocrit, b loodOrdered By: Jonas Black on 10-07-2020 Hematocrit (Bld) [Volume fraction] 41 % 36 - 46 % [facility] Phone: Hemoglobin (Bld) [Mass/Vol] 14.0 g/dL 12.0 - 16.0 g/dL [employer] [facility] Phone: No Panel InformationOrdered By: Jonas Black on 10-07-2020 [facility] [facility] Phone: POCT GlucoseOrdered By: Anu Black on 10-07-2020 Glucose [Mass/Vol] 98 mg/dL 74 - 100 mg/dL [facility] Phone: POCT urine pregnancyOrdered By: Jonas Black on 10-07-2020 Beta HCG ( test) Ql (U) Negative NEGATIVE [facility] Phone: Comment on above: Specimens with hCG l evels near the threshold of the test (25 mIU/mL) may give a negative or indeterminate result. In such cases, another test should be performed with a new specimen in 48-72 hours. If early is suspected clinically in this setting, correlation with quantitative serum b-hCG level is suggested. [facility] Phone: POTASSIUM (POC)Ordered By: Al Black on 10-07-2020 Potassium [Moles/Vol] 3.8 mmol/L 3.5 - 4.5 mmol/L [employer] [facility] Phone: Platelet Counton 10-07-2020 Platelets (Bld) [#/Vol] 299 10*3/uL Normal 138-453 [facility] Comment on above: Performed By: #### P LT #### [employer] [address] [place] [address] Lift Mechanic: Rick Serrano MD Platelet countOrdered By: Jae Black on 10-07-2020 Platelets (Bld) [#/Vol] 299 10*3/uL [facility] Phone: [facility] Phone: SODIUM (POC)Ordered By: Anu Black on 10-07-2020 Sodium [Moles/Vol] 141 mmol/L 138 - 146 mmol/L [employer] [facility] Phone: Coding Summary.on 01-12-2019 Coding Summary. 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 However, the narrative phrase printed from the coding software may appear abbreviated, or result in slightly different terminology. Coded By: Luz Judd Date Saved: 01/12/2019 10:25 am Normal [facility] Coding Summary. 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 However, the narrative phrase printed from the coding software may appear abbreviated, or result in slightly different terminology. Revised Coded By: Luz Judd Revised Date Saved: 01/12/2019 10:25 am Normal [facility] XR Chest 2 Viewson 9 [...] M.D. Transcribed by: BILL Technologist: ZOILA Normal [facility] Auto Diffon 01-11-2019 Basophils/100 WBC (Bld) 0.8 % Normal 0.0-2.0 [facility] Comment on above: Order Comment: Order Added by Discern Expert. Performed By: #### 1 9852735, 2565758, 5062633, 0106511, 66074420, 9410024, 4311477, 0072662, 0552762, 45083674, 2465627 #### [facility] [address] [place] [address] Basophils/Leukocytes Auto (Bld) [Pure # fraction] 0.1 E9/L Normal 0.0-0.2 [facility] Comment on above: Order Comment: Order Added by Discern Expert. Performed By: #### 1 8683429, 8980995, 2730871, 3575993, 43472033, 3027007, 1990096, 7999473, 9088137, 85681038, 3520633 #### [facility] [address] [place] [address] Eosinophils/100 WBC (Bld) 1.9 % Normal 0.0-8.0 [facility] Comment on above: Order Comment: Order Added by Discern Expert. Performed By: #### 1 2359306, 8362891, 7596366, 9740272, 65918775, 9829321, 2745984, 9763459, 8146500, 33368198, 7835704 #### [facility] [address] [place] [address] Eosinophils/Leukocytes Auto (Bld) [Pure # fraction] 0.1 E9/L Normal 0.0-0.5 [facility] Comment on above: Order Comment: Order Added by Discern Expert. Performed By: #### 1 8930983, 0305435, 5731328, 0752672, 42393275, 6356522, 5319670, 8904727, 6775851, 67815229, 9637706 #### [facility] [address] [place] [address] Lymphocytes/100 WBC (Bld) 28.0 % Normal 14.0-50.0 [facility] Comment on above: Order Comment: Order Added by Discern Expert. Performed By: #### 1 7959442, 9476219, 6614642, 6773058, 84259200, 1878314, 6612005, 6137237, 8749312, 45236720, 4513291 #### [facility] [address] [place] [address] Lymphocytes/Leukocytes Auto (Bld) [Pure # fraction] 2.2 E9/L Normal 1.0-4.0 [facility] Comment on above: Order Comment: Order Added by Discern Expert. Performed By: #### 1 1250347, 6023307, 0312774, 6090401, 68935055, 9865173, 0274816, 8361997, 0275229, 59150829, 3441034 #### [facility] [address] [place] [address] Monocytes/100 WBC (Bld) 7.0 % Normal 4.0-14.0 [facility] Comment on above: Order Comment: Order Added by Discern Expert. Performed By: #### 1 0632925, 3560766, 9501292, 9626807, 26267541, 2961256, 7132523, 2307137, 5821817, 16843542, 3729758 #### [facility] [address] [place] [address] Monocytes/Leukocytes Auto (Bld) [Pure # fraction] 0.6 E9/L Normal 0.2-1.0 [facility] Comment on above: Order Comment: Order Added by Discern Expert. Performed By: #### 1 3505618, 1698420, 6020852, 6090676, 87661469, 0827500, 4945258, 4931334, 6028970, 57574606, 0115313 #### [facility] [address] [place] [address] Neutrophils/100 WBC (Bld) 62.3 % Normal 36.0-75.0 [facility] Comment on above: Order Comment: Order Added by Discern Expert. Performed By: #### 1 9371452, 1397261, 7298358, 8519032, 20269395, 4034757, 4994253, 4190817, 6414276, 70932348, 6169421 #### [facility] [address] [place] [address] Neutrophils/Leukocytes Auto (Bld) [Pure # fraction] 4.9 E9/L Normal 2.0-7.5 [facility] Comment on above: Order Comment: Order Added by Discern Expert. Performed By: #### 1 5536507, 4663529, 4444651, 9731990, 60705529, 7933218, 2178939, 6771090, 8088484, 62433505, 9089518 #### [facility] [address] [place] [address] BMPon 01-11-2019 Creatinine [Mass/Vol] 0.7 mg/dL Normal 0.5-1.3 [facility] Comment on above: Performed By: #### 1 1670616, 5502767, 4714316, 1848989, 11097098, 6500001, 3032451, 6086450, 2194921, 70324833, 3482863 #### [facility] [address] [place] [address] Urea nitrogen [Mass/Vol] 11 mg/dL Normal 5-21 [facility] Comment on above: Performed By: #### 1 1231142, 8838943, 2340288, 7098435, 13803998, 5935685, 1950995, 1782949, 5023872, 68879795, 9376285 #### [facility] [address] [place] [address] Urea nitrogen/Creatinine [Mass ratio] 16 No Units Normal 10-20 [facility] Comment on above: Performed By: #### 1 5799666, 9452596, 4134862, 1874586, 76337300, 8624232, 9662585, 7116607, 4056474, 07708347, 6012464 #### [facility] [address] [place] [address] Anion gap [Moles/Vol] 14 mmol/L Normal 6-16 [facility] Comment on above: Performed By: #### 1 4331660, 7556512, 5612452, 9810969, 44240938, 8056425, 2765659, 3074284, 2076800, 78094471, 0258836 #### [facility] [address] [place] [address] Calcium [Mass/Vol] 8.9 mg/dL Normal 8.9-11.1 [facility] Comment on above: Performed By: #### 1 0496667, 6167992, 1865854, 1706100, 64672588, 8564140, 3745415, 8423246, 6731394, 82876227, 2557159 #### [facility] [address] [place] [address] Chloride [Moles/Vol] 107 mmol/L Normal 101-111 [facility] Comment on above: Performed By: #### 1 3405155, 3712414, 0929205, 3211757, 97205825, 0178609, 5321943, 1901421, 8112732, 80598580, 8128724 #### [facility] [address] [place] [address] CO2 [Moles/Vol] 22 mmol/L Normal 21-31 [facility] Comment on above: Performed By: #### 1 8834227, 7156550, 3519477, 2578304, 04559633, 8379375, 0815740, 2324290, 9839049, 06574666, 8806996 #### [facility] [address] [place] [address] Glucose [Mass/Vol] 122 mg/dL Normal 55-199 [facility] Comment on above: Result Comment: If t his glucose result represents a fasting glucose, interpretation should refer to the following reference range: 55-99 mg/dL Performed By: #### 1 0947484, 4143019, 7167130, 6031966, 47049259, 3486255, 8041251, 9891853, 6806384, 14403255, 3521130 #### [facility] [address] [place] [address] Potassium [Moles/Vol] 3.8 mmol/L Normal 3.5-5.3 [facility] Comment on above: Performed By: #### 1 9384563, 9388573, 8902571, 7401268, 10544459, 5662031, 5172827, 3938728, 0582711, 34032682, 0419383 #### [facility] [address] [place] [address] Sodium [Moles/Vol] 139 mmol/L Normal 135-145 [facility] Comment on above: Performed By: #### 1 3740026, 1543755, 5986695, 1669813, 78346727, 5931721, 6313657, 4463669, 8368247, 66427636, 5682690 #### [facility] [address] [place] [address] CBC w/ Auto Diffon 9 Erythrocyte distribution width (RBC) [Ratio] 14.0 % Normal 10.9-14.2 [facility] Comment on above: Performed By: #### 1 3482438, 0270713, 6953552, 8142873, 03177492, 9952456, 6003548, 7734676, 1057520, 08130018, 9636110 #### [facility] [address] [place] [address] Hematocrit (Bld) [Volume fraction] 39.9 % Normal 34.0-46.0 [facility] Comment on above: Performed By: #### 1 3622036, 1559064, 9415833, 8554081, 88343727, 1297867, 2425426, 7361082, 6046996, 46975622, 6998490 #### [facility] [address] [place] [address] Hemoglobin (Bld) [Mass/Vol] 13.5 g/dL Normal 12.0-16.0 [facility] Comment on above: Performed By: #### 1 2024173, 8694819, 1450274, 4955410, 28695558, 4441387, 6641285, 6663459, 1438075, 41377189, 4237906 #### [facility] [address] [place] [address] MCH (RBC) [Entitic mass] 29.4 pg Normal 27.0-34.0 [facility] Comment on above: Performed By: #### 1 5778970, 9959750, 6103593, 6347359, 26721817, 9028643, 7282010, 9903403, 3809739, 69577764, 6566987 #### [facility] [address] [place] [address] MCHC (RBC) [Mass/Vol] 33.7 g/dL Normal 33.3-35.7 [facility] Comment on above: Performed By: #### 1 1769799, 5304693, 6748023, 1042977, 76542087, 1985488, 1277347, 4461643, 2994325, 95527818, 1690961 #### [facility] [address] [place] [address] MCV (RBC) [Entitic vol] 87.4 fL Normal 80.0-100.0 [facility] Comment on above: Performed By: #### 1 2399400, 0741464, 7755596, 6125450, 92218784, 7430946, 0932445, 8626402, 3133549, 10416874, 7571738 #### [facility] [address] [place] [address] Platelet mean volume (Bld) [Entitic vol] 8.5 fL Normal 6.4-10.8 [facility] Comment on above: Performed By: #### 1 2446976, 6021585, 2090318, 5686960, 62150347, 2328354, 4218185, 3238587, 7474364, 22042803, 5856679 #### [facility] [address] [place] [address] Platelets (Bld) [#/Vol] 244.0 E9/L Normal 150.0-500.0 [facility] Comment on above: Performed By: #### 1 5907325, 5316957, 6579899, 1882458, 89173122, 4765225, 2696403, 5124039, 5743307, 10693961, 6780633 #### [facility] [address] [place] [address] RBC (Bld) [#/Vol] 4.6 E12/L Normal 4.3-5.9 [facility] Comment on above: Performed By: #### 1 6777393, 7058318, 9131500, 5624521, 74107230, 9607326, 2856023, 7890509, 2532032, 78120657, 0072580 #### [facility] [address] [place] [address] WBC corrected for nucl RBC Auto (Bld) [#/Vol] 7.9 E9/L Normal 4.0-11.0 [facility] Comment on above: Performed By: #### 1 2711164, 7624086, 5371372, 2779006, 64443640, 0776634, 6668256, 1608189, 5616333, 57455083, 7195043 #### [facility] [address] [place] [address] D-Dimeron 01-11-2019 Fibrin D-dimer FEU (PPP) [Mass/Vol] 265 ng/mL Normal 215-500 [facility] Comment on above: Result Comment: [...] infections Liver cirrhosis Performed By: #### 1 2005269, 2065883, 9398644, 0038570, 39597909, 2274876, 8662587, 8929606, 6272376, 68668807, 0357810 #### [facility] [address] [place] [address] ED Clinical Summaryon 2018 ED Clinical Summary [address] [address] ED Clinical Summary Person Information Name: ARIADNA HALEY [facility] Age: 38 Years : 1980 12:00 AM Sex: Female Language: Mosotho PCP: Charles Nicole DO Marital Status: Single Phone: [phone] Visit Id: Visit Reason: Chest pain; CHEST [...] 01/11/2019 6:42 PM 01/11/2019 6:42 PM ADDRESS: [address] [place] [address] CARL ID [id number] PHYS DOC NOTES: MEDICAL INFORMATION: Prescriptions Given: PATIENT EDUCATION INFORMATION: Instructions: Smoking Cessation; Chest Pain (Nonspecific) Follow up: With: Address: When: [address] [place] [address] Business (1) Within 2 to 3 days Comments: Return to ED if symptoms worsen DIAGNOSIS: 1:Chest pain Normal [facility] ED Note-Physicianon 01-12-20 ED Note-Physician [...] prescription medications Follow-up With When Contact Information [facility] Within 2 to [address] [place] [address] [facility] (1) Additional Instructions: Return [...] Lymph Auto: 28 % (01/11/19 16:46:00 EDT) [place] Auto: 7 % (01/11/19 16:46:00 EDT) Eos Auto: 1.9 % (01/11/19 16:46:00 EDT) Basophil Auto: 0.8 % (01/11/19 16:46:00 EDT) Neutro Absolute: 4.9 E9/L (01/11/19 16:46:00 EDT) Lymph Absolute: 2.2 E9/L (01/11/19 16:46:00 EDT) [place] Absolute: 0.6 E9/L (01/11/19 16:46:00 EDT) Eos [...] Results EC01/11/19: SINUS RHYTHM RATE 84, NORMAL IN AND QRS, NO ST ELEVATION OR DEPRSSION, NORMAL AXIS, NORMAL QTC NORMAL ECG Signed By: Orin Browne DO 01/11/2019 15:54:18 Normal [facility] Comment on above: Result Comment: [...] and skin patches. Some may be available dzgk-skm-palfajz and others require a prescription. ? Antidepressant [...] Document Reviewed: 08/18/2012 ExitCare? Patient Information ?2014 [employer]. This information is not intended to [...] Document Reviewed: 12/13/2008 ExitCare? Patient Information ?2015 [employer]. This information is not intended to replace advice given to you by your health care provider. Make sure you discuss any questions you have with your health care provider. Normal [facility] ED Patient Summaryon 019 ED Patient Summary [address] [id number] Patient Discharge Instructions Person Information Name: ARIADNA HALEY Age: 38 Years Arrival Date: 01/11/2019 3:44 PM Discharge Diagnosis: 1:Chest pain Primary Care Physician: Charles Nicole DO Provider Information Primary Provider: Orin Browne DO Advanced Lounge Car Attendant:None The exam and treatment you received in the Emergency Department were for an urgent problem and are not intended as complete care. It is important that you follow up with a doctor, nurse practitioner, or physician?s assistant hairstylist for ongoing care. If your symptoms become worse or you do not improve as expected and you are unable to reach your usual health care provider, you should return to the Emergency Department. We are available 24 hours a day. ARIADNA HALEY has been given the following list of patient education materials, prescriptions and follow-up instructions: Follow-up Instructions: With: Address: When: Charles Nicole [address] [place] [address] Business (1) Within 2 to 3 days [...] opioids can be used to help relieve mqfocfqn-vz-vehpte pain and are often prescribed following a [...] be struggling with addiction, tell your health primary care sales representative and ask for guidance or call [facility]?S National Helpline at 6-606-706-QJOG. c Source: [place] Department of Health and Human Services/Center for Disease Control & Prevention [facility] Medications Given: Medication Dose Route No medications found. Medication Information: Medications to Continue with No Changes Other Medications metformin (metformin 500 mg ER Tab) 250 Milligram By Mouth 2 times a day. Comment: Pharmacy Information: Thank you for choosing [facility] Patient Education Materials: Smoking Cessation [...] and skin patches. Some may be available nevc-wks-nycoqnz and others require a prescription. ? Antidepressant [...] Document Reviewed: 08/18/2012 ExitCare? Patient Information ?2015 [employer]. This information is not intended to [...] Document Reviewed: 12/13/2008 ExitCare? Patient Information ?2014 [employer]. This information is not intended to replace advice given to you by your health care provider. Make sure you discuss any questions you have with your health care provider. TERA Dorantes NICOLE B , have received the following patient education materials/instruction s and have verbalized understanding: Patient Education Materials: Smoking Cessation; Chest Pain (Nonspecific) Follow-up Instructions: With: Address: When: [place] [address] Business (1) Within 2 to 3 days Comments: Return to ED if symptoms worsen Prescriptions: Patient Signature Date Clinician/Nurse Signature Date 01/11/19 18:42:28 Normal [facility] Progress Note-Nurseon 2018 Progress Note-Nurse Pt explained discharge instructions and voiced understanding. Pt sts she will follow up with her PCP and denies any furthe questions at this time. Normal [facility] Troponin 0 Hr.on 01-11-2019 Troponin I.cardiac [Mass/Vol] ng/mL Normal <=0.03 [facility] Comment on above: Result Comment: New Troponin Assay 10/05/13 KRISHNA MD Cutoff value > or = 0.03 ng/mL in conjunction with clinical conditions of myocardial infarction. (www.escardio.org/guidelines) Performed By: #### 1 6297645, 8230381, 5371827, 9494815, 13092841, 9502662, 0053571, 9876050, 0799080, 22866073, 8462325 #### [facility] [address] [place] [address] eGFRon 01-11-2019 GFR/1.73 sq M predicted among blacks MDRD (S/P/Bld) [Vol rate/Area] mL/min/{1.73_m2} Normal >=59 [facility] Comment on above: Order Comment: Order added by Discern Expert. Result Comment: eGFR is race adjusted. AA=. Performed By: #### 1 7776346, 4443136, 8157832, 9399622, 93724176, 8508902, 0185048, 7534558, 8634120, 40115638, 9651849 #### [facility] [address] [place] [address] GFR/1.73 sq M predicted among non-blacks MDRD (S/P/Bld) [Vol rate/Area] mL/min/{1.73_m2} Normal >=59 [facility] Comment on above: Order Comment: Order added by Discern Expert. Result Comment: Consolidator anthony kidney disease could be indicated at eGFR's of less than 60 mL/min/1.73m2. Kidney failure is indicated at less than 15 mL/min/1.73m2. Performed By: #### 1 5443868, 0350826, 7611433, 2530438, 95028466, 9500328, 9490603, 2358187, 4250760, 35413437, 8826034 #### [facility] [address] [place] [address] SPINE, LUMBOSACRAL CMPLT(JAMAR DING)on 12-05-2018 SPINE, LUMBOSACRAL CMPLT(BENDING) Patient Name: ARIADNA HALEY STUDY: SPINE, LUMBOSACRAL; CMPLT(BENDING); 12/05/2018 1:47 pm INDICATION: LUMBAR XR. COMPARISON: None. ACCESSION NUMBER(S): [id number] ORDERING CLINICIAN: KADE RICHARDSON FINDINGS: No lumbar [...] 09-15-2018 Coding Summary. 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 However, the narrative phrase printed from the coding software may appear abbreviated, or result in slightly different terminology. Coded By: Luz Judd Date Saved: 09/15/2018 07:15 am Normal [facility] Auto Diffon 09-14-2018 Basophils/100 WBC (Bld) 0.6 % Normal 0.0-2.0 [facility] Comment on above: Order Comment: Order Added by Discern Expert. Performed By: #### 1 7562588, 2811887, 0174153, 7752568, 47502589, 0033357, 3417205, 8062741, 1199083, 14833179, 3698693 #### [facility] [address] [place] [address] Basophils/Leukocytes Auto (Bld) [Pure # fraction] 0.1 E9/L Normal 0.0-0.2 [facility] Comment on above: Order Comment: Order Added by Discern Expert. Performed By: #### 1 5695746, 8323624, 7977450, 2059032, 56342527, 3774935, 9069650, 6826897, 9642387, 58574365, 6962490 #### [facility] [address] [place] [address] Eosinophils/100 WBC (Bld) 2.2 % Normal 0.0-8.0 [facility] Comment on above: Order Comment: Order Added by Discern Expert. Performed By: #### 1 9326065, 7097618, 7292408, 4862782, 76118991, 9118896, 9718313, 8004187, 0147448, 20091510, 5282906 #### [facility] [address] [place] [address] Eosinophils/Leukocytes Auto (Bld) [Pure # fraction] 0.2 E9/L Normal 0.0-0.5 [facility] Comment on above: Order Comment: Order Added by Discern Expert. Performed By: #### 1 1077894, 8747337, 0964830, 2149558, 45053227, 7443560, 4782973, 1460266, 7290816, 94836057, 7686422 #### [facility] [address] [place] [address] Lymphocytes/100 WBC (Bld) 30.6 % Normal 14.0-50.0 [facility] Comment on above: Order Comment: Order Added by Discern Expert. Performed By: #### 1 2168575, 0841313, 4082496, 3443006, 52343489, 9043664, 3430941, 9186940, 7591976, 82103550, 4386999 #### [facility] [address] [place] [address] Lymphocytes/Leukocytes Auto (Bld) [Pure # fraction] 3.0 E9/L Normal 1.0-4.0 [facility] Comment on above: Order Comment: Order Added by Discern Expert. Performed By: #### 1 2246739, 2937861, 6783108, 9505047, 48400304, 4326103, 6896679, 0243872, 2048119, 56308561, 6211117 #### [facility] [address] [place] [address] Monocytes/100 WBC (Bld) 7.2 % Normal 4.0-14.0 [facility] Comment on above: Order Comment: Order Added by Discern Expert. Performed By: #### 1 7201048, 6682867, 7255429, 7203343, 77801293, 9814948, 4224408, 7258845, 5496647, 17470877, 3134672 #### [facility] [address] [place] [address] Monocytes/Leukocytes Auto (Bld) [Pure # fraction] 0.7 E9/L Normal 0.2-1.0 [facility] Comment on above: Order Comment: Order Added by Tosin Expert. Performed By: #### 1 0047400, 0180210, 7304943, 2203250, 74056230, 8779822, 4758963, 5387261, 0801415, 82430182, 7802494 #### [facility] [address] [place] [address] Neutrophils/100 WBC (Bld) 59.4 % Normal 36.0-75.0 [facility] Comment on above: Order Comment: Order Added by Discern Expert. Performed By: #### 1 0851815, 7594710, 3082628, 3471253, 90414270, 4320144, 3144383, 3784336, 7285820, 05225593, 0806276 #### [facility] [address] [place] [address] Neutrophils/Leukocytes Auto (Bld) [Pure # fraction] 5.9 E9/L Normal 2.0-7.5 [facility] Comment on above: Order Comment: Order Added by Discern Expert. Performed By: #### 1 7542026, 2616329, 6273137, 4809912, 48101191, 6104697, 9257699, 9520280, 4325461, 90210975, 8820112 #### [facility] [address] [place] [address] BMPon 09-14-2018 Creatinine [Mass/Vol] 0.6 mg/dL Normal 0.5-1.3 [facility] Comment on above: Performed By: #### 1 7141628, 9572726, 2995217, 4867885, 56923877, 5830449, 0627431, 2830839, 9181180, 75417510, 1273126 #### [facility] [address] [place] [address] Urea nitrogen [Mass/Vol] 15 mg/dL Normal 5-21 [facility] Comment on above: Performed By: #### 1 3043761, 0315205, 5467806, 6489185, 56307335, 1334263, 8886635, 1353965, 3199635, 61353186, 7043411 #### [facility] [address] [place] [address] Urea nitrogen/Creatinine [Mass ratio] 25 No Units High 10-20 [facility] Comment on above: Performed By: #### 1 2302085, 3510800, 8675405, 4950947, 90961081, 2831402, 0819913, 7526142, 2294781, 37236857, 9345587 #### [facility] [address] [place] [address] Anion gap [Moles/Vol] 13 mmol/L Normal 6-16 [facility] Comment on above: Performed By: #### 1 5533646, 1459552, 6590858, 8386364, 25860084, 8481929, 8382876, 9253834, 9265498, 34729803, 8562324 #### [facility] [address] [place] [address] Calcium [Mass/Vol] 9.5 mg/dL Normal 8.9-11.1 [facility] Comment on above: Performed By: #### 1 6402878, 2897083, 5205198, 8070196, 87769573, 1324038, 4415419, 0490010, 8246409, 96204598, 6409600 #### [facility] [address] [place] [address] Chloride [Moles/Vol] 103 mmol/L Normal 101-111 [facility] Comment on above: Performed By: #### 1 1606593, 4460072, 7512966, 9752584, 18709680, 1741040, 3101213, 7190726, 9088475, 76893259, 0926172 #### [facility] [address] [place] [address] CO2 [Moles/Vol] 24 mmol/L Normal 21-31 [facility] Comment on above: Performed By: #### 1 3144876, 2018343, 1301511, 3759168, 26485253, 5262677, 9075162, 0227901, 1581631, 53972843, 8450292 #### [facility] [address] [place] [address] Glucose [Mass/Vol] 102 mg/dL Normal 55-199 [facility] Comment on above: Result Comment: If t his glucose result represents a fasting glucose, interpretation should refer to the following reference range: 55-99 mg/dL Performed By: #### 1 9255957, 6562319, 2499361, 8658792, 16649195, 6751724, 0509164, 3064162, 4050068, 98215452, 6767121 #### [facility] [address] [place] [address] Potassium [Moles/Vol] 3.6 mmol/L Normal 3.5-5.3 [facility] Comment on above: Performed By: #### 1 8770173, 8343418, 1413379, 2717514, 38722300, 3522364, 6726248, 3930003, 2663384, 46940759, 8642136 #### [facility] [address] [place] [address] Sodium [Moles/Vol] 136 mmol/L Normal 135-145 [facility] Comment on above: Performed By: #### 1 7070834, 6628521, 2116212, 9679615, 12344667, 1310288, 2655499, 8353792, 4701259, 01092333, 4719846 #### [facility] [address] [place] [address] CBC w/ Auto Diffon 9 Erythrocyte distribution width (RBC) [Ratio] 14.2 % Normal 10.9-14.2 [facility] Comment on above: Performed By: #### 1 0493508, 5273982, 7244960, 7975222, 18414638, 5062329, 1129116, 5805617, 4382041, 61759303, 8249380 #### [facility] [address] [place] [address] Hematocrit (Bld) [Volume fraction] 39.4 % Normal 34.0-46.0 [facility] Comment on above: Performed By: #### 1 8376723, 8618912, 2158030, 3488358, 52605268, 1760735, 0695498, 7562236, 9900470, 60169544, 4961085 #### [facility] [address] [place] [address] Hemoglobin (Bld) [Mass/Vol] 13.3 g/dL Normal 12.0-16.0 [facility] Comment on above: Performed By: #### 1 7678936, 5396850, 3083531, 6174949, 18773929, 1492693, 2409106, 7325429, 3482796, 23746743, 5944094 #### [facility] [address] [place] [address] MCH (RBC) [Entitic mass] 29.2 pg Normal 27.0-34.0 [facility] Comment on above: Performed By: #### 1 0959280, 5062065, 7765421, 9375839, 83081683, 1711955, 3569131, 5505383, 3118995, 56446125, 7489134 #### [facility] [address] [place] [address] MCHC (RBC) [Mass/Vol] 33.8 g/dL Normal 33.3-35.7 [facility] Comment on above: Performed By: #### 1 4642647, 8658634, 0456272, 9554813, 43864693, 5566288, 3387084, 8708507, 9083820, 18483580, 2824303 #### [facility] [address] [place] [address] MCV (RBC) [Entitic vol] 86.6 fL Normal 80.0-100.0 [facility] Comment on above: Performed By: #### 1 8201058, 8967280, 8719495, 5015678, 42176909, 2041779, 7604449, 5980427, 1109357, 00473020, 4211538 #### [facility] [address] [place] [address] Platelet mean volume (Bld) [Entitic vol] 8.8 fL Normal 6.4-10.8 [facility] Comment on above: Performed By: #### 1 7792646, 7667217, 2491583, 8762062, 82894984, 4730514, 5198759, 0179598, 5969803, 16171529, 7194973 #### [facility] [address] [place] [address] Platelets (Bld) [#/Vol] 307.0 E9/L Normal 150.0-500.0 [facility] Comment on above: Performed By: #### 1 0512489, 9781271, 6633012, 9418860, 12662118, 5279690, 8235416, 9013702, 1602696, 88004472, 0387562 #### [facility] [address] [place] [address] RBC (Bld) [#/Vol] 4.6 E12/L Normal 4.3-5.9 [facility] Comment on above: Performed By: #### 1 1304906, 8230795, 2235124, 4581781, 99559396, 3557892, 3615989, 4201622, 7729830, 24973095, 1682049 #### [facility] [address] [place] [address] WBC corrected for nucl RBC Auto (Bld) [#/Vol] 9.9 E9/L Normal 4.0-11.0 [facility] Comment on above: Performed By: #### 1 6095975, 6984953, 3117474, 8662485, 96594313, 5856833, 3707684, 2200369, 0302631, 80871734, 0823777 #### [facility] [address] [place] [address] CKon 09-14-2018 CK [Catalytic activity/Vol] 53 Int._Unit/L Normal 14-261 [facility] Comment on above: Performed By: #### 1 1931218, 2921281, 7966804, 5332227, 36403270, 9525848, 2202292, 1294616, 4203582, 52642355, 0919520 #### [facility] [address] [place] [address] ED Clinical Summaryon 2018 ED Clinical Summary [address] [address] ED Clinical Summary Person Information Name: ARIADNA HALEY [place] Age: 37 Years : 1980 12:00 AM Sex: Female Language: Mosotho PCP: Charles Nicole DO Marital Status: Single Phone: [phone] Visit Id: Visit Reason: Anxiety; Paraesthesia; NUMBNESS [...] 09/14/2018 12:17 AM 09/14/2018 12:17 AM ADDRESS: [address] [place] [id number] PHYS DOC NOTES: MEDICAL INFORMATION: Prescriptions Given: Prescription Display gabapentin (gabapentin 100 mg Cap) 100 mg = 1 cap(s), Oral, Daily, X 7 day(s), # 7 cap(s), Refills(s) 0, Pharmacy: [facility] gabapentin (gabapentin 100 mg Cap) 100 mg = 1 cap(s), Oral, Daily, X 7 day(s), # 7 cap(s), Refills(s) 0, Pharmacy: [facility]/pharmacy #[id number] magnesium oxide (magnesium oxide 400 mg Tab) 400 mg = 1 tab(s), Oral, Daily, X 7 day(s), # 7 tab(s), Refills(s) 0, Pharmacy: [facility] magnesium oxide (magnesium oxide 400 mg Tab) 400 mg = 1 tab(s), Oral, Daily, X 7 day(s), # 7 tab(s), Refills(s) 0, Pharmacy: [facility]/pharmacy #[id number] Home Meds Display metformin (metformin 500 mg ER Tab) 250 mg, Oral, BID, Refills(s) 0 PATIENT EDUCATION INFORMATION: Instructions: Paresthesia, Lftx-pp-Jzdd; Restless Legs Syndrome Follow up: With: Address: [facility] [address] [place] [address] Business (1) Within 1 to 2 days Comments: neurologist you may also follow up with him With: Address: When: [address] [address] Business (1) Within 1 to 2 days Comments: Return to ED if symptoms worsen DIAGNOSIS: 1:Restless leg syndrome Normal [facility] ED Note-Nursingon 09-14-2018 ED Note-Nursing Pt up to RR, gait steady. Normal [facility] ED Note-Nursing Aware of need for urine specimen, denies urge at present, states will notify when able to produce sample, will monitor. Normal [facility] ED Note-Physicianon 09-15-19 ED Note-Physician Basic Information [...] day(s), # 7 cap(s), Refills(s) 0, Pharmacy: [facility]/pharmacy #6177 magnesium oxide, 400 mg = 1 tab(s), Oral, Daily, X 7 day(s), # 7 tab(s), Refills(s) 0, Pharmacy: [facility]/pharmacy #6177 Sodium Chloride 0.9% intravenous solution 1,000 [...] Sayda Kelley Within 1 to [address] [address]- Business (1) Additional Instructions: neurologist you may also follow up with him Charles Nicole Within 1 to 2 days [address] [place] [address]- Business (1) Additional Instructions: Return to ED if symptoms worsen Patient Education Paresthesia, Gcxd-ae-Fkws Restless Legs Syndrome Problem List/Past Medical History [...] Lymph Auto: 30.6 % (09/13/18 23:03:00 EDT) [place] Auto: 7.2 % (09/13/18 23:03:00 EDT) Eos Auto: 2.2 % (09/13/18 23:03:00 EDT) Basophil Auto: 0.6 % (09/13/18 23:03:00 EDT) Neutro Absolute: 5.9 E9/L (09/13/18 23:03:00 EDT) Lymph Absolute: 3 E9/L (09/13/18 23:03:00 EDT) [place] Absolute: 0.7 E9/L (09/13/18 23:03:00 EDT) Eos [...] Diagnostic Results No qualifying data available. Normal [facility] Comment on above: Result Comment: [...] Document Reviewed: 01/29/2012 ExitCare? Patient Information ?2015 [employer]. This information is not intended to [...] ? Drawing. ? Crawling. ? Worming. ? [place]. ? Tingling. ? Pins and needles. ? [...] Document Reviewed: 08/06/2011 ExitCare? Patient Information ?2015 [employer]. This information is not intended to replace advice given to you by your health care provider. Make sure you discuss any questions you have with your health care provider. Normal [facility] ED Patient Summaryon 019 ED Patient Summary [address] [address] Patient Discharge Instructions Person Information Name: ARIADNA HALEY Age: 37 Years Arrival Date: 09/13/2018 10:16 PM Discharge Diagnosis: 1:Restless leg syndrome Primary Care Physician: Charles Nicole DO Provider Information Primary Provider: Génesis Lozoya DO Advanced Lounge Car Attendant:None The exam and treatment you received in the Emergency Department were for an urgent problem and are not intended as complete care. It is important that you follow up with a doctor, nurse practitioner, or physician?s assistant hairstylist for ongoing care. If your symptoms become [...] Address: When: Sayda Kelley [facility], [address] [place] [address] [employer] (1) Within 1 to 2 days Comments: neurologist you may also follow up with him With: Address: When: Charles Nicole [address] [place] [address] [employer] (1) Within 1 to 2 days Comments: Return to ED if symptoms worsen In the event that this physician does not participate in your insurance network, please consult with your insurance company to find a nearby participating provider. Patient Education Materials: Paresthesia, Ulrb-qw-Mxss; Restless Legs Syndrome A MESSAGE TO ALL PATIENTS REGARDING OPIOIDS PRESCRIPTION OPIOIDS: WHAT YOU NEED TO KNOW Prescription opioids can be used to help relieve iwoltwmz-zm-pzpqdu pain and are often prescribed following a [...] be struggling with addiction, tell your health primary care sales representative and ask for guidance or call [facility] National Helpline at 6-938-012-IWTJ. f Source: [place] Department of Health and Human Services/Center for Disease Control & Prevention [facility] Medications Given: Medication Dose Route Sodium Chloride 0.9% intravenous solution 1000.00 mL Initial Volume 1000.00 mL/hr IV Piggyback Left Mid Forearm Medication Information: New Medications [id number], [address], [place] [id number], [phone] gabapentin (gabapentin 100 mg Cap) 1 Capsules By Mouth every day for 7 Days. Refills: 0. magnesium oxide (magnesium oxide 400 mg Tab) 1 Tabs By Mouth every day for 7 Days. Refills: 0. [facility], [address] [place], [place] [id number], [phone] gabapentin (gabapentin 100 mg Cap) 1 Capsules By Mouth every day for 7 Days. Refills: 0. magnesium oxide (magnesium oxide 400 mg Tab) 1 Tabs By Mouth every day for 7 Days. Refills: 0. Medications to Continue with No Changes Other Medications metformin (metformin 500 mg ER Tab) 250 Milligram By Mouth 2 times a day. Comment: Pharmacy Information: Thank you for choosing [facility] Patient Education Materials: Paresthesia Paresthesia [...] Document Reviewed: 01/29/2012 ExitCare? Patient Information ?2015 [employer]. This information is not intended to [...] ? Drawing. ? Crawling. ? [place]orm[place]. ? [place]. ? Tingling. ? Pins and needles. ? [...] Document Reviewed: 08/06/2011 ExitCare? Patient Information ?2015 [employer]. This information is not intended to replace advice given to you by your health care provider. Make sure you discuss any questions you have with your health care provider. TERA Dorantes NICOLE B , have received the following patient education materials/instruction s and have verbalized understanding: Patient Education Materials: Paresthesia, Cayi-nj-Jyjp; Restless Legs Syndrome Follow-up Instructions: With: Address: When: Sayda Rubin, [address] [place] [address] Business (1) Within 1 to 2 days Comments: neurologist you may also follow up with him With: Address: When: [address] [place] [address] Business (1) Within 1 to 2 days Comments: Return to ED if symptoms worsen Prescriptions: [gabapentin (gabapentin 100 mg Cap)] [gabapentin (gabapentin 100 mg Cap)] [magnesium oxide (magnesium oxide 400 mg Tab)] [magnesium oxide (magnesium oxide 400 mg Tab)] Patient Signature Clinician/Nurse Signature Date 09/14/18 00:21:38 Normal [facility] Hep Func Panelon 09-14-2018 Bilirubin.direct [Mass/Vol] UTC Abnormal 0.1-0.9 [facility] Comment on above: Result Comment: Resu lt verified by Discern Rule. Performed result UTC (Unable to Calculate) was sent as an Alpha code due the inability to calculate a valid numeric value. Performed By: #### 1 4562667, 9370280, 5750867, 5483445, 49476791, 2314515, 6551029, 5179800, 1496466, 19454161, 3989176 #### [facility] [place] [address] Albumin [Mass/Vol] 1.1 g/dL Normal 1.1-2.2 [facility] Comment on above: Performed By: #### 1 8593511, 0453425, 7669969, 6370495, 90407326, 8281156, 1067177, 0078327, 2563102, 67634192, 6164670 #### [facility] [address] [place] [address] Albumin [Mass/Vol] 4.1 g/dL Normal 3.3-5.0 [facility] Comment on above: Performed By: #### 1 8886214, 1992263, 5291371, 0418467, 68826041, 9846180, 9264735, 4127145, 6192536, 90081408, 6914992 #### [facility] [address] [place] [address] ALP [Catalytic activity/Vol] 69 Int._Unit/L Normal 21-98 [facility] Comment on above: Performed By: #### 1 9170737, 5015949, 5494526, 6660582, 26614240, 4890371, 1008793, 8083035, 7189657, 22323813, 0818164 #### [facility] [address] [place], [place] [address] ALT No additional P-5'-P [Catalytic activity/Vol] 27 Int._Unit/L Normal 6-46 [facility] Comment on above: Performed By: #### 1 9591527, 1804824, 4651040, 7014378, 41926670, 3309280, 5062949, 9827901, 0054322, 90849507, 8032211 #### [facility] [address] [place], [place] [address] AST [Catalytic activity/Vol] 16 Int._Unit/L Normal 5-43 [facility] Comment on above: Performed By: #### 1 4459393, 0241990, 8815239, 7027866, 20621595, 3800710, 8947598, 5247137, 1788705, 97904087, 4532958 #### [facility] [address] [place] [address] Bilirubin [Mass/Vol] 0.5 mg/dL Normal 0.0-1.1 [facility] Comment on above: Performed By: #### 1 5864469, 3893714, 3338635, 6350148, 27232205, 7766291, 9181610, 8912816, 4446636, 75644277, 2518553 #### [facility] [address] [place] [address] Bilirubin.direct [Mass/Vol] mg/dL Normal 0.1-0.4 [facility] Comment on above: Performed By: #### 1 3604894, 8360813, 6443295, 8578392, 71569549, 8463403, 1888566, 0490836, 1257057, 16182214, 3448591 #### [facility] [address] [place] [address] Globulin (S) [Mass/Vol] 3.7 g/dL Normal 1.4-4.0 [facility] Comment on above: Performed By: #### 1 6068357, 1832704, 8936170, 3147889, 12613176, 4262594, 7404542, 0575379, 2718247, 20207629, 7383925 #### [facility] [address] [place] [address] Protein [Mass/Vol] 7.8 g/dL Normal 6.0-7.8 [facility] Comment on above: Performed By: #### 1 0390343, 6462319, 7293990, 2369113, 23758874, 1901271, 8160805, 9384811, 4255088, 00271249, 7301235 #### [facility] [address] [place] [address] Magnesiumon 09-14-2018 Magnesium [Mass/Vol] 1.9 mg/dL Normal 1.3-2.4 [facility] Comment on above: Performed By: #### 1 1029171, 4473490, 1216203, 0426898, 33239095, 5154797, 3810262, 4936257, 9792490, 89955606, 2998606 #### [facility] [address] [place] [address] Myoglobinon 09-14-2018 Myoglobin [Mass/Vol] 9 ng/mL Normal <=69 [facility] Comment on above: Performed By: #### 1 1203565, 4647650, 0629580, 8887418, 18486389, 9353313, 5165899, 9275657, 5788509, 43664761, 8132149 #### [facility] [address] [place] [address] PT & PTTon 09-14-2018 aPTT Coag (PPP) [Time] 34.5 second(s) Normal 25.1-36.5 [facility] Comment on above: Result Comment: Hepa rin therapeutic range (represented by Anti-Factor Xa activity of 0.2 - 0.4 U/mL) corresponds to PTT of 56.6 - 109.0 sec. Performed By: #### 1 9479249, 3403897, 7577375, 7895131, 16552497, 1530243, 1092675, 4986755, 8222776, 79309999, 3756520 #### [facility] [address] [place] [address] INR Coag (PPP) [Relative time] 1.0 {INR} [facility] Comment on above: Result Comment: INR results are specifically intended to assess patients stabilized on long-term Anticoagulation therapy suggested INR?s ?Less Intensive Anticoagulation? 2.0 ? 3.0 Conventional Range 3.0 ? 4.5 Performed By: #### 1 7289283, 5129708, 8035002, 8170723, 74264572, 3355810, 2832919, 3565016, 2062690, 35301339, 7976609 #### [facility] [address] [place] [address] PT Coag (PPP) [Time] 11.2 second(s) Normal 10.2-12.9 [facility] Comment on above: Performed By: #### 1 7059213, 7654986, 0951246, 7165465, 75366620, 8047027, 9781231, 0872981, 9633163, 59467414, 4935765 #### [facility] [address] [place] [address] Phosphoruson 09-14-2018 Phosphate [Mass/Vol] 3.8 mg/dL Normal 1.9-4.6 Fish [facility] Comment on above: Performed By: #### 1 1236977, 5137258, 4784345, 9075092, 96450742, 9860295, 4501853, 1786187, 0220246, 37242033, 8057551 #### [facility] [address] [place] [address] Troponin 0 Hr.on 09-14-2018 Troponin I.cardiac [Mass/Vol] ng/mL Normal <=0.03 [facility] Comment on above: Result Comment: New Troponin Assay 10/05/13 KRISHNA MD Cutoff value > or = 0.03 ng/mL in conjunction with clinical conditions of myocardial infarction. ([email or web address]/[email or web address]) Performed By: #### 1 6360030, 5502842, 9480954, 8867129, 22732553, 4227035, 3045027, 5154903, 0403587, 32384821, 4975589 #### [facility] [address] [place] [address] UA With Cult Reflexon 2018 Bacteria LM Ql (Urine sed) TRACE Normal Trace [facility] Comment on above: Performed By: #### 1 5249635, 2952669, 2868832, 9472060, 11588185, 6830709, 4882563, 2592713, 6332490, 94996441, 0593595 #### [facility] [address] [place] [address] Bilirubin Ql (U) Negative Normal Negative [facility] Comment on above: Performed By: #### 1 3283920, 9685193, 9137393, 4481909, 45601647, 1453875, 2257299, 5992539, 4251240, 83407770, 2078204 #### [facility] [address] [place] [address] Clarity (U) CLEAR Normal Clear [facility] Comment on above: Performed By: #### 1 1614896, 1838932, 1447563, 7453058, 22416636, 1570206, 6532456, 4015565, 7334632, 46272104, 2837798 #### [facility] [address] [place] [address] Color (U) YELLOW Normal Yellow [facility] Comment on above: Performed By: #### 1 3062828, 0350929, 1775427, 2653851, 90523461, 6026761, 4651881, 1021312, 3244749, 20394683, 8445390 #### [facility] [address] [place] [address] Epithelial cells.squamous LM.HPF (Urine sed) [#/Area] 0-2 Normal 0-2 [facility] Comment on above: Performed By: #### 1 6854155, 3247020, 8888235, 4122892, 91142763, 1085849, 0768715, 1416525, 5203591, 28184753, 0159007 #### [facility] [address] [place] [address] Glucose Test strip (U) [Mass/Vol] Negative Normal Negative [facility] Comment on above: Performed By: #### 1 6385128, 2667717, 2159906, 1626476, 45837296, 7387724, 7241954, 7662388, 3568916, [id number], [id number] #### [facility] [address] [place] [address] Hemoglobin Ql (U) Negative Normal Negative [facility] Comment on above: Performed By: #### 1 [id number], 2457940, 3731124, 7675514, 81170350, 4224098, 7910229, 4717853, 5544812, 76115048, 7078302 #### [facility] [address] [place] [address] Ketones (U) [Mass/Vol] Negative Normal Negative [facility] Comment on above: Performed By: #### 1 [id number], 4583967, 9465818, 5950601, 48563379, 6375426, 2674945, 5062353, 4740141, 71006610, 0110827 #### [facility] [address] [place] [address] Sequ[place]ah.plasma/[place] .RBC (Bld) [Mass ratio] 0-3 Normal 0-3 [facility] Comment on above: Performed By: #### 1 [id number], 3954498, 1534876, 1190098, 55137548, 5205919, 0968701, 6688188, 7008273, 66933449, 3373398 #### [facility] [address] [place] [address] Mucus Ql (Urine sed) TRACE Normal [facility] Comment on above: Performed By: #### 1 [id number], 1197915, 2469473, 6308118, 47232804, 4506901, 0766407, 5174746, 2637201, 38157300, 4067180 #### [facility] [address] [place] [address] Nitrite Ql (U) Negative Normal Negative [facility] Comment on above: Performed By: #### 1 [id number], 7738299, 8783998, 6550704, 90391673, 1390811, 3149464, 7725449, 9049997, 96047798, 5818512 #### [facility] [address] [place] [address] pH (U) 6.0 [pH] 5.0-9.0 [facility] Comment on above: Performed By: #### 1 [id number], 4555148, 3123165, 4407944, 29751574, 4006566, 5382387, 8662015, 8199919, 97633756, 3375947 #### [facility] [address] [place] [address] Protein (U) [Mass/Vol] Negative Normal Negative [facility] Comment on above: Performed By: #### 1 [id number], 7517220, 1195906, 6623709, 31956518, 5705633, 9588968, 9935809, 7950471, 21503213, 7982354 #### [facility] [address] [place] [address] Specific gravity (U) [Rel density] 1.010 1.005-1.030 [facility] Comment on above: Performed By: #### 1 [id number], 3421273, 9822965, 6956078, 27558828, 2650730, 5445254, 3820020, 7998420, 01675228, 9254280 #### [facility] [address] [place] [address] UA Spec Desc Clean Catch Normal [facility] Comment on above: Performed By: #### 1 [id number], 5863335, 1991058, 3830113, 07112107, 4758931, 8107895, 3078466, 8883975, 68220613, 3404837 #### [facility] [address] [place] [address] Urobilinogen Qn (U) 0.2 {Carmella'U}/dL Normal 0.0-1.0 [facility] Comment on above: Performed By: #### 1 [id number], 5614645, 7789612, 4634473, 91198042, 8858418, 3247715, 5992218, 5999500, 73808757, 5441288 #### [facility] [address] [place] [address] WBC Auto Ql (U) Negative Normal Negative [facility] Comment on above: Performed By: #### 1 [id number], 2525815, 7174644, 7304771, 58958103, 0554439, 9450790, 8141778, 9162823, 08309041, 7421383 #### [facility] [address] [place] [address] WBC LM.HPF (Urine sed) [#/Area] 0-5 Normal 0-5 [facility] Comment on above: Performed By: #### 1 0865326, 7809701, 4132182, 0007306, 38212957, 8774292, 4808082, 0824099, 1998844, 00185041, 5550021 #### [facility] [address] [place] [address] XR Chest Single Viewon 09-14 XR Chest [...] M.D. Transcribed by: minoo Technologist: AP Normal [facility] XR FOOT LEFT (MIN 3 VIEWS)on 09-14-2018 XR FOOT LEFT (MIN 3 VIEWS) Radiology exam is complete. No Radiologist dictation. Please follow up with ordering provider. Final result Normal [facility] XR FOOT RIGHT (MIN 3 VIEWS)o n 09-14-2018 XR FOOT RIGHT (MIN 3 VIEWS) Radiology exam is complete. No Radiologist dictation. Please follow up with ordering provider. Final result Normal [facility] eGFRon 09-14-2018 GFR/1.73 sq M predicted among blacks MDRD (S/P/Bld) [Vol rate/Area] mL/min/{1.73_m2} Normal >=59 [facility] Comment on above: Order Comment: Order added by Discern Expert. Result Comment: eGFR is race adjusted. AA=. Performed By: #### 1 [id number], 1926543, 1030100, 1467765, 97089908, 7110046, 9529276, 4713737, 7822186, 73531985, 8857130 #### [facility] [address] [place] [address] GFR/1.73 sq M predicted among non-blacks MDRD (S/P/Bld) [Vol rate/Area] mL/min/{1.73_m2} Normal >=59 [facility] Comment on above: Order Comment: Order added by Discern Expert. Result Comment: Consolidator anthony kidney disease could be indicated at eGFR's of less than 60 mL/min/1.73m2. Kidney failure is indicated at less than 15 mL/min/1.73m2. Performed By: #### 1 [id number], 6344822, 9944041, 4799374, 82987341, 7792642, 6363119, 9397177, 6503985, 06500825, 6977247 #### [facility] [address] [place] [address] Vital Signs Date Time Vital Sign Value Performing Clinician Facility 02-14-2025 09:42-0400 Body height 170.18 cm Gay Johnmer GEROPSYCHOLOGIST-C Work Phone: [facility] 02-14-2025 09:42-0400 Diastolic blood pressure 76 mm[Hg] Gay Britt GEROPSYCHOLOGIST-C Work Phone: [facility] 02-14-2025 09:42-0400 Heart rate 65 /min Gay Britt GEROPSYCHOLOGIST-C Work Phone: [facility] 02-14-2025 09:42-0400 SaO2% (BldA) [Mass fraction] 97 % Gay Britt GEROPSYCHOLOGIST-C Work Phone: [facility] 02-14-2025 09:42-0400 Systolic blood pressure 118 mm[Hg] Gay Britt GEROPSYCHOLOGIST-C Work Phone: [facility] 01-31-2025 11:40-0400 Diastolic blood pressure 80 mm[Hg] Gay Britt GEROPSYCHOLOGIST-C Work Phone: [facility] 01-31-2025 11:40-0400 Heart rate 86 /min Gay Britt GEROPSYCHOLOGIST-C Work Phone: [facility] 01-31-2025 11:40-0400 Respiratory rate 18 /min Gayomer Johnmer GEROPSYCHOLOGIST-C Work Phone: [facility] 01-31-2025 11:40-0400 SaO2% (BldA) [Mass fraction] 94 % Gayomer Johnmer GEROPSYCHOLOGIST-C Work Phone: [facility] 01-31-2025 11:40-0400 Systolic blood pressure 116 mm[Hg] Gay Enciso GEROPSYCHOLOGIST-C Work Phone: [facility] 01-31-2025 10:11-0400 Body height 170.18 cm Gay Johnmer GEROPSYCHOLOGIST-C Work Phone: [facility] 01-31-2025 10:11-0400 Body weight 127 kg Gayomer Johnmer GEROPSYCHOLOGIST-C Work Phone: [facility] 01-24-2025 14:20-0400 Diastolic blood pressure 68 mm[Hg] Chair Massac Work Phone: [facility] 01-24-2025 14:20-0400 Heart rate 82 /min Chair Gabbi Work Phone: [facility] 01-24-2025 14:20-0400 Respiratory rate 18 /min Chair Gabbi Work Phone: [facility] 01-24-2025 14:20-0400 SaO2% (BldA) [Mass fraction] 98 % Chair Gabbi Work Phone: [facility] 01-24-2025 14:20-0400 Systolic blood pressure 111 mm[Hg] Chair Massac Work Phone: [facility] 01-24-2025 10:42-0400 Body temperature 97.81 [degF] Chair Massac Work Phone: [facility] 01-17-2025 10:38-0400 Body height 170.18 cm Gay Enciso GEROPSYCHOLOGIST-C Work Phone: [facility] 01-17-2025 10:38-0400 Diastolic blood pressure 62 mm[Hg] Gay Johnmer GEROPSYCHOLOGIST-C Work Phone: [facility] 01-17-2025 10:38-0400 Heart rate 92 /min Gay Enciso GEROPSYCHOLOGIST-C Work Phone: [facility] 01-17-2025 10:38-0400 SaO2% (BldA) [Mass fraction] 96 % Gay Enciso GEROPSYCHOLOGIST-C Work Phone: [facility] 01-17-2025 10:38-0400 Systolic blood pressure 108 mm[Hg] Gay Enciso GEROPSYCHOLOGIST-C Work Phone: [facility] 01-11-2025 13:51-0400 Body temperature 98.29 [degF] Chair Massac Work Phone: [facility] 01-11-2025 13:51-0400 Diastolic blood pressure 91 mm[Hg] Chair Massac Work Phone: [facility] 01-11-2025 13:51-0400 Heart rate 76 /min Chair Massac Work Phone: [facility] 01-11-2025 13:51-0400 Respiratory rate 20 /min Chair Gabbi Work Phone: [facility] 01-11-2025 13:51-0400 SaO2% (BldA) [Mass fraction] 98 % Chair Gabbi Work Phone: [facility] 01-11-2025 13:51-0400 Systolic blood pressure 146 mm[Hg] Chair Massac Work Phone: [facility] 12-14-2024 14:10-0400 Diastolic blood pressure 71 mm[Hg] Chair Massac Work Phone: [facility] 12-14-2024 14:10-0400 Heart rate 83 /min Chair Massac Work Phone: [facility] 12-14-2024 14:10-0400 Respiratory rate 18 /min Chair Massac Work Phone: [facility] 12-14-2024 14:10-0400 SaO2% (BldA) [Mass fraction] 96 % Chair Gabbi Work Phone: [facility] 12-14-2024 14:10-0400 Systolic blood pressure 128 mm[Hg] Chair Gabbi Work Phone: [facility] 12-12-2024 10:45-0400 Body height 170.18 cm Gay Britt GEROPSYCHOLOGIST-C Work Phone: [facility] 12-12-2024 10:45-0400 Body mass index (BMI) [Ratio] 44.8 kg/m2 Gay Britt GEROPSYCHOLOGIST-C Work Phone: [facility] 12-12-2024 10:45-0400 Body weight 129.72 kg Gay Britt GEROPSYCHOLOGIST-C Work Phone: [facility] 12-12-2024 10:45-0400 Diastolic blood pressure 71 mm[Hg] Gay Britt GEROPSYCHOLOGIST-C Work Phone: [facility] 12-12-2024 10:45-0400 Heart rate 63 /min Gay Britt GEROPSYCHOLOGIST-C Work Phone: [facility] 12-12-2024 10:45-0400 Systolic blood pressure 109 mm[Hg] Gay Britt GEROPSYCHOLOGIST-C Work Phone: [facility] 11-30-2024 09:08-0400 Diastolic blood pressure 84 mm[Hg] Gay Britt GEROPSYCHOLOGIST-C Work Phone: [facility] 11-30-2024 09:08-0400 Heart rate 64 /min Gay Britt GEROPSYCHOLOGIST-C Work Phone: [facility] 11-30-2024 09:08-0400 SaO2% (BldA) [Mass fraction] 98 % Gay Britt GEROPSYCHOLOGIST-C Work Phone: [facility] 11-30-2024 09:08-0400 Systolic blood pressure 120 mm[Hg] Gay Britt GEROPSYCHOLOGIST-C Work Phone: [facility] 11-29-2024 14:46-0400 Body temperature 97.81 [degF] Chair Reese Work Phone: [facility] 11-29-2024 14:46-0400 Diastolic blood pressure 73 mm[Hg] Chair Massac Work Phone: [facility] 11-29-2024 14:46-0400 Heart rate 77 /min Chair Massac Work Phone: [facility] 11-29-2024 14:46-0400 Respiratory rate 18 /min Chair Massac Work Phone: [facility] 11-29-2024 14:46-0400 SaO2% (BldA) [Mass fraction] 98 % Chair Massac Work Phone: [facility] Comment on above: RA 11-29-2024 14:46-0400 Systolic blood pressure 122 mm[Hg] Chair Massac Work Phone: [facility] 11-29-2024 09:13-0400 Body height 170.2 cm Vaibhav Deven PENSION FUND MANAGER.SPORTS MANAGEMENT INTERN Work Phone: [facility] 11-29-2024 09:13-0400 Body mass index (BMI) [Ratio] 45.12 kg/m2 Vaibhav Deven PENSION FUND MANAGER.SPORTS MANAGEMENT INTERN Work Phone: [facility] 11-29-2024 09:13-0400 Body temperature 97.5 [degF] Vaibhav Deven PENSION FUND MANAGER.SPORTS MANAGEMENT INTERN Work Phone: [facility] 11-29-2024 09:13-0400 Body weight 130.7 kg Vaibhav Deven PENSION FUND MANAGER.SPORTS MANAGEMENT INTERN Work Phone: [facility] 11-29-2024 09:13-0400 Diastolic blood pressure 57 mm[Hg] Vaibhav Deven PENSION FUND MANAGER.SPORTS MANAGEMENT INTERN Work Phone: [facility] 11-29-2024 09:13-0400 Heart rate 88 /min Vaibhav Deven PENSION FUND MANAGER.SPORTS MANAGEMENT INTERN Work Phone: [facility] 11-29-2024 09:13-0400 Respiratory rate 18 /min Vaibhav Deven PENSION FUND MANAGER.SPORTS MANAGEMENT INTERN Work Phone: [facility] 11-29-2024 09:13-0400 SaO2% (BldA) [Mass fraction] 98 % Vaibhavanil Carvalho PENSION FUND MANAGER.SPORTS MANAGEMENT INTERN Work Phone: [facility] 11-29-2024 09:13-0400 Systolic blood pressure 113 mm[Hg] Vaibhav Carvalho PENSION FUND MANAGER.SPORTS MANAGEMENT INTERN Work Phone: [facility] 11-16-2024 13:47-0400 Body temperature 98.01 [degF] Chair Massac Work Phone: [facility] 11-16-2024 13:47-0400 Diastolic blood pressure 70 mm[Hg] Chair Massac Work Phone: [facility] 11-16-2024 13:47-0400 Heart rate 89 /min Chair Gabbi Work Phone: [facility] 11-16-2024 13:47-0400 Respiratory rate 20 /min Chair Gabbi Work Phone: [facility] 11-16-2024 13:47-0400 SaO2% (BldA) [Mass fraction] 97 % Chair Massac Work Phone: [facility] 11-16-2024 13:47-0400 Systolic blood pressure 101 mm[Hg] Chair Massac Work Phone: [facility] 11-13-2024 11:17-0400 Body height 170.18 cm Gay Enciso GEROPSYCHOLOGIST-C Work Phone: [facility] 11-13-2024 11:17-0400 Body mass index (BMI) [Ratio] 44.1 kg/m2 Gay Enciso GEROPSYCHOLOGIST-C Work Phone: [facility] 11-13-2024 11:17-0400 Body weight 127.91 kg Gay Enciso GEROPSYCHOLOGIST-C Work Phone: [facility] 11-13-2024 11:17-0400 Diastolic blood pressure 78 mm[Hg] Gay Enciso GEROPSYCHOLOGIST-C Work Phone: [facility] 11-13-2024 11:17-0400 Heart rate 96 /min Gay Johnmer GEROPSYCHOLOGIST-C Work Phone: [facility] 11-13-2024 11:17-0400 Systolic blood pressure 104 mm[Hg] Gay Enciso GEROPSYCHOLOGIST-C Work Phone: [facility] 10-31-2024 14:46-0400 Diastolic blood pressure 76 mm[Hg] Chair Massac Work Phone: [facility] 10-31-2024 14:46-0400 Heart rate 68 /min Chair Massac Work Phone: [facility] 10-31-2024 14:46-0400 Respiratory rate 20 /min Chair Massac Work Phone: [facility] 10-31-2024 14:46-0400 SaO2% (BldA) [Mass fraction] 94 % Chair Massac Work Phone: [facility] Comment on above: RA 10-31-2024 14:46-0400 Systolic blood pressure 133 mm[Hg] Chair Gabbi Work Phone: [facility] 10-31-2024 09:19-0400 Body temperature 97.81 [degF] Chair Massac Work Phone: [facility] 2024 14:16-0400 Body mass index (BMI) [Ratio] 44.01 kg/m2 Chair Massac Work Phone: [facility] 2024 14:16-0400 Body temperature 97.59 [degF] Chair Massac Work Phone: [facility] 2024 14:16-0400 Body weight 127.5 kg Chair Massac Work Phone: [facility] 2024 14:16-0400 Diastolic blood pressure 78 mm[Hg] Chair Massac Work Phone: [facility] 2024 14:16-0400 Heart rate 85 /min Chair Gabbi Work Phone: [facility] 2024 14:16-0400 Respiratory rate 16 /min Chair Massac Work Phone: [facility] 2024 14:16-0400 SaO2% (BldA) [Mass fraction] 96 % Chair Massac Work Phone: [facility] 2024 14:16-0400 Systolic blood pressure 113 mm[Hg] Chair Massac Work Phone: [facility] 10-02-2024 14:15-0400 Body temperature 98.29 [degF] Chair Massac Work Phone: [facility] 10-02-2024 14:15-0400 Diastolic blood pressure 80 mm[Hg] Chair Gabbi Work Phone: [facility] 10-02-2024 14:15-0400 Heart rate 76 /min Chair Massac Work Phone: [facility] 10-02-2024 14:15-0400 Respiratory rate 16 /min Chair Massac Work Phone: [facility] 10-02-2024 14:15-0400 SaO2% (BldA) [Mass fraction] 97 % Chair Gabbi Work Phone: [facility] 10-02-2024 14:15-0400 Systolic blood pressure 129 mm[Hg] Chair Massac Work Phone: [facility] 09-18-2024 13:20-0400 Body temperature 97.59 [degF] Chair Massac Work Phone: [facility] 09-18-2024 13:20-0400 Diastolic blood pressure 84 mm[Hg] Chair Massac Work Phone: [facility] 09-18-2024 13:20-0400 Heart rate 107 /min Chair Massac Work Phone: [facility] 09-18-2024 13:20-0400 Respiratory rate 18 /min Chair Gabbi Work Phone: [facility] 09-18-2024 13:20-0400 SaO2% (BldA) [Mass fraction] 97 % Chair Gabbi Work Phone: [facility] 09-18-2024 13:20-0400 Systolic blood pressure 115 mm[Hg] Chair Massac Work Phone: [facility] 09-06-2024 16:17-0400 Heart rate 90 /min Gay Enciso GEROPSYCHOLOGIST-C Work Phone: [facility] 09-06-2024 16:17-0400 SaO2% (BldA) [Mass fraction] 97 % Gay Britt GEROPSYCHOLOGIST-C Work Phone: [facility] 09-06-2024 13:54-0400 Diastolic blood pressure 69 mm[Hg] Chair Massac Work Phone: [facility] 09-06-2024 13:54-0400 Heart rate 90 /min Chair Massac Work Phone: [facility] 09-06-2024 13:54-0400 Respiratory rate 18 /min Chair Gabbi Work Phone: [facility] 09-06-2024 13:54-0400 SaO2% (BldA) [Mass fraction] 97 % Chair Massac Work Phone: [facility] 09-06-2024 13:54-0400 Systolic blood pressure 110 mm[Hg] Chair Massac Work Phone: [facility] 09-06-2024 08:43-0400 Body height 170.2 cm Vaibhav Carvalho APRN.SPORTS MANAGEMENT INTERN Work Phone: [facility] 09-06-2024 08:43-0400 Body mass index (BMI) [Ratio] 45.5 kg/m2 Vaibhav Carvalho PENSION FUND MANAGER.SPORTS MANAGEMENT INTERN Work Phone: [facility] 09-06-2024 08:43-0400 Body temperature 97.5 [degF] Vaibhav Deven PENSION FUND MANAGER.SPORTS MANAGEMENT INTERN Work Phone: [facility] 09-06-2024 08:43-0400 Body weight 131.8 kg Vaibhav Deven PENSION FUND MANAGER.SPORTS MANAGEMENT INTERN Work Phone: [facility] 09-06-2024 08:43-0400 Diastolic blood pressure 64 mm[Hg] Vaibhav Deven PENSION FUND MANAGER.SPORTS MANAGEMENT INTERN Work Phone: [facility] 09-06-2024 08:43-0400 Heart rate 77 /min Vaibhav Deven PENSION FUND MANAGER.SPORTS MANAGEMENT INTERN Work Phone: [facility] 09-06-2024 08:43-0400 Respiratory rate 18 /min Vaibhav Deven PENSION FUND MANAGER.SPORTS MANAGEMENT INTERN Work Phone: [facility] 09-06-2024 08:43-0400 SaO2% (BldA) [Mass fraction] 97 % Vaibhav Deven PENSION FUND MANAGER.SPORTS MANAGEMENT INTERN Work Phone: [facility] 09-06-2024 08:43-0400 Systolic blood pressure 116 mm[Hg] Vaibhav Deven PENSION FUND MANAGER.SPORTS MANAGEMENT INTERN Work Phone: [facility] 09-04-2024 15:04-0400 Body height 170.2 cm Gordo Barfield MD Work Phone: [facility] 09-04-2024 15:04-0400 Body mass index (BMI) [Ratio] 44.32 kg/m2 Gordo Barfield MD Work Phone: [facility] 09-04-2024 15:04-0400 Body weight 128.37 kg Gordo Barfield MD Work Phone: [facility] 09-04-2024 15:04-0400 Diastolic blood pressure 73 mm[Hg] Gordo Barfield MD Work Phone: [facility] 09-04-2024 15:04-0400 Heart rate 101 /min Gordo Barfield MD Work Phone: [facility] 09-04-2024 15:04-0400 Systolic blood pressure 112 mm[Hg] Gordo Barfield MD Work Phone: [facility] 08-08-2024 14:36-0400 Diastolic blood pressure 87 mm[Hg] Chair Gabbi Work Phone: [facility] 08-08-2024 14:36-0400 Heart rate 83 /min Chair Gabbi Work Phone: [facility] 08-08-2024 14:36-0400 Respiratory rate 18 /min Chair Gabbi Work Phone: [facility] 08-08-2024 14:36-0400 SaO2% (BldA) [Mass fraction] 97 % Chair Massac Work Phone: [facility] 08-08-2024 14:36-0400 Systolic blood pressure 129 mm[Hg] Chair Massac Work Phone: [facility] 08-08-2024 10:54-0400 Body temperature 98.01 [degF] Chair Gabbi Work Phone: [facility] 07-31-2024 16:05-0400 Diastolic blood pressure 70 mm[Hg] Gayomer Enciso GEROPSYCHOLOGIST-C Work Phone: [facility] 07-31-2024 16:05-0400 Heart rate 108 /min Gayomer Enciso GEROPSYCHOLOGIST-C Work Phone: [facility] 07-31-2024 16:05-0400 SaO2% (BldA) [Mass fraction] 96 % Gayomer Enciso GEROPSYCHOLOGIST-C Work Phone: [facility] 07-31-2024 16:05-0400 Systolic blood pressure 104 mm[Hg] Gay Enciso GEROPSYCHOLOGIST-C Work Phone: [facility] 07-26-2024 15:06-0500 Body height 170.2 cm Lois Holm MD Work Phone: [facility] 07-26-2024 15:06-0500 Body mass index (BMI) [Ratio] 44.92 kg/m2 Lois Holm MD Work Phone: [facility] 07-26-2024 15:06-0500 Body weight 130.09 kg Lois Holm MD Work Phone: [facility] 07-26-2024 15:06-0500 Diastolic blood pressure 60 mm[Hg] Lois Holm MD Work Phone: [facility] 07-26-2024 15:06-0500 Heart rate 84 /min Lois Holm MD Work Phone: [facility] 07-26-2024 15:06-0500 Systolic blood pressure 100 mm[Hg] Lois Holm MD Work Phone: [facility] 07-19-2024 11:27-0500 Diastolic blood pressure 90 mm[Hg] Gay Enciso GEROPSYCHOLOGIST-C Work Phone: [facility] 07-19-2024 11:27-0500 Heart rate 78 /min Gay Enciso GEROPSYCHOLOGIST-C Work Phone: [facility] 07-19-2024 11:27-0500 Respiratory rate 16 /min Gay Enciso GEROPSYCHOLOGIST-C Work Phone: [facility] 07-19-2024 11:27-0500 SaO2% (BldA) [Mass fraction] 96 % Gay Enciso GEROPSYCHOLOGIST-C Work Phone: [facility] 07-19-2024 11:27-0500 Systolic blood pressure 126 mm[Hg] Gay Enciso GEROPSYCHOLOGIST-C Work Phone: [facility] 07-19-2024 09:54-0500 Body height 170.18 cm Gay Enciso GEROPSYCHOLOGIST-C Work Phone: [facility] 07-19-2024 09:54-0500 Body weight 127 kg Gay Enciso GEROPSYCHOLOGIST-C Work Phone: [facility] 07-12-2024 14:16-0500 Body temperature 96.91 [degF] Marky Barnes PA-C Work Phone: [facility] 07-11-2024 14:30-0500 Body temperature 97.39 [degF] Chair Massac Work Phone: [facility] 07-11-2024 14:30-0500 Diastolic blood pressure 80 mm[Hg] Chair Massac Work Phone: [facility] 07-11-2024 14:30-0500 Heart rate 69 /min Chair Massac Work Phone: [facility] 07-11-2024 14:30-0500 Respiratory rate 18 /min Chair Gabbi Work Phone: [facility] 07-11-2024 14:30-0500 SaO2% (BldA) [Mass fraction] 98 % Chair Massac Work Phone: [facility] 07-11-2024 14:30-0500 Systolic blood pressure 119 mm[Hg] Chair Massac Work Phone: [facility] 07-10-2024 15:25-0500 Diastolic blood pressure 70 mm[Hg] [facility] 07-10-2024 15:25-0500 Heart rate 106 /min [facility] 07-10-2024 15:25-0500 SaO2% (BldA) [Mass fraction] 97 % [facility] 07-10-2024 15:25-0500 Systolic blood pressure 102 mm[Hg] [facility] 06-13-2024 14:55-0500 Diastolic blood pressure 56 mm[Hg] Chair Massac Work Phone: [facility] 06-13-2024 14:55-0500 Heart rate 70 /min Chair Gabbi Work Phone: [facility] 06-13-2024 14:55-0500 Respiratory rate 18 /min Chair Gabbi Work Phone: [facility] 06-13-2024 14:55-0500 SaO2% (BldA) [Mass fraction] 98 % Chair Massac Work Phone: [facility] 06-13-2024 14:55-0500 Systolic blood pressure 93 mm[Hg] Chair Gabbi Work Phone: [facility] 06-13-2024 08:55-0500 Body mass index (BMI) [Ratio] 45.08 kg/m2 Vaibhav Deven PENSION FUND MANAGER.SPORTS MANAGEMENT INTERN Work Phone: [facility] 06-13-2024 08:55-0500 Body temperature 97.59 [degF] Vaibhav Deven PENSION FUND MANAGER.SPORTS MANAGEMENT INTERN Work Phone: [facility] 06-13-2024 08:55-0500 Body weight 130.6 kg Vaibhav Deven PENSION FUND MANAGER.SPORTS MANAGEMENT INTERN Work Phone: [facility] 06-13-2024 08:55-0500 Diastolic blood pressure 71 mm[Hg] Vaibhav Deven PENSION FUND MANAGER.SPORTS MANAGEMENT INTERN Work Phone: [facility] 06-13-2024 08:55-0500 Heart rate 79 /min Vaibhav Deven PENSION FUND MANAGER.SPORTS MANAGEMENT INTERN Work Phone: [facility] 06-13-2024 08:55-0500 Respiratory rate 16 /min Vaibhav Deven PENSION FUND MANAGER.SPORTS MANAGEMENT INTERN Work Phone: [facility] 06-13-2024 08:55-0500 SaO2% (BldA) [Mass fraction] 98 % Vaibhav Deven PENSION FUND MANAGER.SPORTS MANAGEMENT INTERN Work Phone: [facility] 06-13-2024 08:55-0500 Systolic blood pressure 106 mm[Hg] Vaibhav Deven PENSION FUND MANAGER.SPORTS MANAGEMENT INTERN Work Phone: [facility] 06-06-2024 11:37-0500 Body mass index (BMI) [Ratio] 45.08 kg/m2 Oly WARREN Work Phone: [facility] 06-06-2024 11:37-0500 Body weight 130.54 kg Oly WARREN Work Phone: [facility] 06-06-2024 11:37-0500 Diastolic blood pressure 70 mm[Hg] Oly WARREN Work Phone: [facility] 06-06-2024 11:37-0500 Systolic blood pressure 120 mm[Hg] Oly WARREN Work Phone: [facility] 05-19-2024 15:02-0500 Body temperature 97.3 [degF] Chair Massac Work Phone: [facility] 05-19-2024 15:02-0500 Diastolic blood pressure 63 mm[Hg] Chair Massac Work Phone: [facility] 05-19-2024 15:02-0500 Heart rate 73 /min Chair Massac Work Phone: [facility] 05-19-2024 15:02-0500 Respiratory rate 20 /min Chair Gabbi Work Phone: [facility] 05-19-2024 15:02-0500 SaO2% (BldA) [Mass fraction] 98 % Chair Massac Work Phone: [facility] Comment on above: 05-19-2024 15:02-0500 Systolic blood pressure 114 mm[Hg] Chair Gabbi Work Phone: [facility] 04-26-2024 09:31-0500 Body temperature 97.59 [degF] Ma Sand Work Phone: [facility] 04-26-2024 09:31-0500 Diastolic blood pressure 78 mm[Hg] Ma Sand Work Phone: [facility] Comment on above: Manual 04-26-2024 09:31-0500 Heart rate 66 /min Ma Sand Work Phone: [facility] 04-26-2024 09:31-0500 Respiratory rate 16 /min Ma Sand Work Phone: [facility] 04-26-2024 09:31-0500 SaO2% (BldA) [Mass fraction] 99 % Ma Sand Work Phone: [facility] 04-26-2024 09:31-0500 Systolic blood pressure 122 mm[Hg] Cele Marshall Work Phone: [facility] Comment on above: Manual 04-10-2024 10:12-0500 Body height 170.2 cm Gordo Barfield MD Work Phone: [facility] 04-10-2024 10:12-0500 Body mass index (BMI) [Ratio] 44.95 kg/m2 Gordo Barfield MD Work Phone: [facility] 04-10-2024 10:12-0500 Body weight 130.18 kg Gordo Barfield MD Work Phone: [facility] 04-10-2024 10:12-0500 Diastolic blood pressure 70 mm[Hg] Gordo Barfield MD Work Phone: [facility] 04-10-2024 10:12-0500 Systolic blood pressure 110 mm[Hg] Gordo Barfield MD Work Phone: [facility] 04-06-2024 10:00-0500 Body height 170.2 cm Hayden Arciniega MD Work Phone: [facility] 04-06-2024 10:00-0500 Body mass index (BMI) [Ratio] 43.07 kg/m2 Hayden Arciniega MD Work Phone: [facility] 04-06-2024 10:00-0500 Body temperature 97 [degF] Hayden Arciniega MD Work Phone: [facility] 04-06-2024 10:00-0500 Body weight 124.74 kg Hayden Arciniega MD Work Phone: [facility] 04-06-2024 10:00-0500 Diastolic blood pressure 80 mm[Hg] Hayden Arciniega MD Work Phone: [facility] 04-06-2024 10:00-0500 Heart rate 86 /min Hayden Arciniega MD Work Phone: [facility] 04-06-2024 10:00-0500 SaO2% (BldA) [Mass fraction] 97 % Hayden Arciniega MD Work Phone: [facility] 04-06-2024 10:00-0500 Systolic blood pressure 136 mm[Hg] Hayden Arciniega MD Work Phone: [facility] 04-02-2024 13:27-0500 Body mass index (BMI) [Ratio] 45.42 kg/m2 Marky Mike DO Work Phone: [facility] 04-02-2024 13:27-0500 Body temperature 98.71 [degF] Marky Mike DO Work Phone: [facility] 04-02-2024 13:27-0500 Body weight 131.54 kg Marky Mike DO Work Phone: [facility] 04-02-2024 13:27-0500 Diastolic blood pressure 90 mm[Hg] Marky Mike DO Work Phone: [facility] 04-02-2024 13:27-0500 Heart rate 78 /min Marky Mike DO Work Phone: [facility] 04-02-2024 13:27-0500 SaO2% (BldA) [Mass fraction] 99 % Marky Mike DO Work Phone: [facility] 04-02-2024 13:27-0500 Systolic blood pressure 132 mm[Hg] Marky Mike DO Work Phone: [facility] 03-23-2024 14:35-0400 Body mass index (BMI) [Ratio] 44.17 kg/m2 Oly WARREN Work Phone: [facility] 03-23-2024 14:35-0400 Body weight 127.91 kg Oly WARREN Work Phone: [facility] 03-23-2024 14:35-0400 Diastolic blood pressure 76 mm[Hg] Oly WARREN Work Phone: [facility] 03-23-2024 14:35-0400 Systolic blood pressure 122 mm[Hg] Oly WARREN Work Phone: [facility] 03-23-2024 10:11-0400 Body height 170.2 cm Ma Sand Work Phone: [facility] 03-23-2024 10:11-0400 Body mass index (BMI) [Ratio] 43.06 kg/m2 Ma Sand Work Phone: [facility] 03-23-2024 10:11-0400 Body temperature 97.59 [degF] Cele Sand Work Phone: [facility] 03-23-2024 10:11-0400 Body weight 124.74 kg Ma Sand Work Phone: [facility] 03-23-2024 10:11-0400 Diastolic blood pressure 85 mm[Hg] Ma Sand Work Phone: [facility] 03-23-2024 10:11-0400 Heart rate 71 /min Ma Sand Work Phone: [facility] 03-23-2024 10:11-0400 Respiratory rate 16 /min Cele Sand Work Phone: [facility] 03-23-2024 10:11-0400 SaO2% (BldA) [Mass fraction] 94 % Ma [employer] Work Phone: [facility] 03-23-2024 10:11-0400 Systolic blood pressure 135 mm[Hg] Ma [employer] Work Phone: [facility] 03-16-2024 11:24-0400 Body mass index (BMI) [Ratio] 43.67 kg/m2 Luan Skip DO Work Phone: [facility] [employer] 03-16-2024 11:24-0400 Body weight 126.46 kg Luan Skip DO Work Phone: [facility] [employer] 03-16-2024 11:24-0400 Diastolic blood pressure 70 mm[Hg] Luan Skip DO Work Phone: [facility] [employer] 03-16-2024 11:24-0400 Systolic blood pressure 120 mm[Hg] Luan Skip DO Work Phone: [facility] [employer] 03-16-2024 09:20-0400 Body height 170.18 cm GEROPSYCHOLOGIST-C Gay Johnmer Work Phone: [facility] 03-16-2024 09:20-0400 Body mass index (BMI) [Ratio] 43 kg/m2 GEROPSYCHOLOGIST-C Gayomer Johnmer Work Phone: [facility] 03-16-2024 09:20-0400 Body weight 124.73 kg GEROPSYCHOLOGIST-C Gayomer Johnmer Work Phone: [facility] 02-21-2024 11:04-0400 Body temperature 97.2 [degF] Ma Sand Work Phone: [facility] 02-21-2024 11:04-0400 Diastolic blood pressure 68 mm[Hg] Ma Sand Work Phone: [facility] Comment on above: manual 02-21-2024 11:04-0400 Heart rate 95 /min Ma Sand Work Phone: [facility] 02-21-2024 11:04-0400 Respiratory rate 16 /min Ma Sand Work Phone: [facility] 02-21-2024 11:04-0400 SaO2% (BldA) [Mass fraction] 98 % Ma Sand Work Phone: [facility] 02-21-2024 11:04-0400 Systolic blood pressure 102 mm[Hg] Ma Sand Work Phone: [facility] Comment on above: manual 02-16-2024 09:23-0400 Diastolic blood pressure 72 mm[Hg] GEROPSYCHOLOGIST-C Gay Johnmer Work Phone: [facility] 02-16-2024 09:23-0400 Heart rate 70 /min GEROPSYCHOLOGIST-C Gay Britt Work Phone: [facility] 02-16-2024 09:23-0400 Respiratory rate 16 /min GEROPSYCHOLOGIST-C Gay Britt Work Phone: [facility] 02-16-2024 09:23-0400 SaO2% (BldA) [Mass fraction] 96 % GEROPSYCHOLOGIST-C Gay Britt Work Phone: [facility] 02-16-2024 09:23-0400 Systolic blood pressure 126 mm[Hg] GEROPSYCHOLOGIST-C Gay Enciso Work Phone: [facility] 02-16-2024 07:27-0400 Body height 170.18 cm GEROPSYCHOLOGIST-C Gay Enciso Work Phone: [facility] 02-16-2024 07:27-0400 Body weight 122.46 kg GEROPSYCHOLOGIST-C Gay Enciso Work Phone: [facility] 01-28-2024 11:31-0400 Body weight 126.6 kg [facility] 01-28-2024 11:31-0400 Diastolic blood pressure 80 mm[Hg] [facility] 01-28-2024 11:31-0400 Heart rate 69 /min [facility] 01-28-2024 11:31-0400 SaO2% (BldA) [Mass fraction] 98 % [facility] 01-28-2024 11:31-0400 Systolic blood pressure 120 mm[Hg] [facility] 01-25-2024 11:30-0400 Body temperature 97.39 [degF] Ma Sand Work Phone: [facility] 01-25-2024 11:30-0400 Diastolic blood pressure 67 mm[Hg] Ma Sand Work Phone: [facility] 01-25-2024 11:30-0400 Heart rate 68 /min Ma Sand Work Phone: [facility] 01-25-2024 11:30-0400 Respiratory rate 16 /min Ma Sand Work Phone: [facility] 01-25-2024 11:30-0400 SaO2% (BldA) [Mass fraction] 99 % Ma Sand Work Phone: [facility] 01-25-2024 11:30-0400 Systolic blood pressure 92 mm[Hg] Ma Sand Work Phone: [facility] 12-27-2023 11:16-0400 Diastolic blood pressure 68 mm[Hg] Neda Liz PA-C Work Phone: [facility] 12-27-2023 11:16-0400 Systolic blood pressure 98 mm[Hg] Neda Liz PA-C Work Phone: [facility] 12-27-2023 11:02-0400 Body height 170.2 cm Neda Liz PA-C Work Phone: [facility] 12-27-2023 11:02-0400 Body mass index (BMI) [Ratio] 43.08 kg/m2 Neda Liz PA-C Work Phone: [facility] 12-27-2023 11:02-0400 Body temperature 97.7 [degF] Neda Liz PA-C Work Phone: [facility] 12-27-2023 11:02-0400 Body weight 124.8 kg Neda Liz PA-C Work Phone: [facility] 12-27-2023 11:02-0400 Heart rate 89 /min Neda Liz PA-C Work Phone: [facility] 12-27-2023 11:02-0400 Respiratory rate 16 /min Neda Liz PA-C Work Phone: [facility] 12-27-2023 11:02-0400 SaO2% (BldA) [Mass fraction] 98 % Neda Liz PA-C Work Phone: [facility] 12-16-2023 14:130400 Body height 170.18 cm [facility] 12-16-2023 14:130400 Body mass index (BMI) [Ratio] 42.7 kg/m2 [facility] 12-16-2023 14:13-0400 Body temperature 98.6 [degF] [facility] 12-16-2023 14:130400 Body weight 123.83 kg [facility] 12-16-2023 14:13-0400 Diastolic blood pressure 73 mm[Hg] [facility] 12-16-2023 14:13-0400 Heart rate 75 /min [facility] 12-16-2023 14:13-0400 Systolic blood pressure 106 mm[Hg] [facility] 11-29-2023 13:43-0400 Body temperature 97.59 [degF] Ma Sand Work Phone: [facility] 11-29-2023 13:43-0400 Diastolic blood pressure 51 mm[Hg] Ma Sand Work Phone: [facility] 11-29-2023 13:43-0400 Heart rate 73 /min Ma Sand Work Phone: [facility] 11-29-2023 13:43-0400 Respiratory rate 16 /min Ma Sand Work Phone: [facility] 11-29-2023 13:43-0400 SaO2% (BldA) [Mass fraction] 96 % Ma Sand Work Phone: [facility] 11-29-2023 13:43-0400 Systolic blood pressure 83 mm[Hg] Ma Sand Work Phone: [facility] 11-04-2023 13:55-0400 Body height 170.18 cm [facility] 11-04-2023 13:55-0400 Body temperature 97.3 [degF] [facility] 11-04-2023 13:55-0400 Diastolic blood pressure 54 mm[Hg] [facility] 11-04-2023 13:55-0400 Heart rate 62 /min [facility] 11-04-2023 13:55-0400 Systolic blood pressure 104 mm[Hg] [facility] 10-27-2023 14:44-0400 Body temperature 97 [degF] Ma Sand Work Phone: [facility] 10-27-2023 14:44-0400 Diastolic blood pressure 72 mm[Hg] Ma Sand Work Phone: [facility] 10-27-2023 14:44-0400 Heart rate 97 /min Ma Sand Work Phone: [facility] 10-27-2023 14:44-0400 Respiratory rate 18 /min Ma Sand Work Phone: [facility] 10-27-2023 14:44-0400 SaO2% (BldA) [Mass fraction] 97 % Ma Sand Work Phone: [facility] 10-27-2023 14:44-0400 Systolic blood pressure 110 mm[Hg] Ma Sand Work Phone: [facility] 10-20-2023 13:10-0400 Body height 170.18 cm [facility] 10-20-2023 13:10-0400 Body mass index (BMI) [Ratio] 43.2 kg/m2 [facility] 10-20-2023 13:10-0400 Body temperature 97.3 [degF] [facility] 10-20-2023 13:10-0400 Body weight 125.19 kg [facility] 10-20-2023 13:10-0400 Diastolic blood pressure 54 mm[Hg] [facility] 10-20-2023 13:10-0400 Heart rate 74 /min [facility] 10-20-2023 13:10-0400 Systolic blood pressure 111 mm[Hg] [facility] 09-30-2023 10:48-0400 Body temperature 97 [degF] Ma Sand Work Phone: [facility] 09-30-2023 10:48-0400 Diastolic blood pressure 82 mm[Hg] Ma Sand Work Phone: [facility] 09-30-2023 10:48-0400 Heart rate 71 /min Ma Sand Work Phone: [facility] 09-30-2023 10:48-0400 Respiratory rate 18 /min Ma Sand Work Phone: [facility] 09-30-2023 10:48-0400 SaO2% (BldA) [Mass fraction] 97 % Ma Sand Work Phone: [facility] 09-30-2023 10:48-0400 Systolic blood pressure 132 mm[Hg] Ma Sand Work Phone: [facility] 09-22-2023 14:41-0400 Body weight 117.93 kg [facility] 08-31-2023 10:34-0400 Body temperature 97.3 [degF] Ma Sand Work Phone: [facility] 08-31-2023 10:34-0400 Diastolic blood pressure 66 mm[Hg] Ma Sand Work Phone: [facility] 08-31-2023 10:34-0400 Heart rate 68 /min Ma Sand Work Phone: [facility] 08-31-2023 10:34-0400 Respiratory rate 18 /min Ma Sand Work Phone: [facility] 08-31-2023 10:34-0400 SaO2% (BldA) [Mass fraction] 99 % Ma Sand Work Phone: [facility] 08-31-2023 10:34-0400 Systolic blood pressure 105 mm[Hg] Ma Sand Work Phone: [facility] 08-05-2023 11:15-0400 Body temperature 97.39 [degF] Ma Sand Work Phone: [facility] 08-05-2023 11:15-0400 Diastolic blood pressure 41 mm[Hg] Ma Sand Work Phone: [facility] 08-05-2023 11:15-0400 Heart rate 68 /min Ma Sand Work Phone: [facility] 08-05-2023 11:15-0400 Respiratory rate 18 /min Ma Sand Work Phone: [facility] 08-05-2023 11:15-0400 SaO2% (BldA) [Mass fraction] 98 % Ma Sand Work Phone: [facility] 08-05-2023 11:15-0400 Systolic blood pressure 98 mm[Hg] Ma Sand Work Phone: [facility] 07-13-2023 11:49-0500 Body temperature 97.5 [degF] Ma Sand Work Phone: [facility] 07-13-2023 11:49-0500 Diastolic blood pressure 74 mm[Hg] Ma Sand Work Phone: [facility] 07-13-2023 11:49-0500 Heart rate 83 /min Ma Sand Work Phone: [facility] 07-13-2023 11:49-0500 Respiratory rate 18 /min Cele Sand Work Phone: [facility] 07-13-2023 11:49-0500 SaO2% (BldA) [Mass fraction] 96 % Cele Sand Work Phone: [facility] 07-13-2023 11:49-0500 Systolic blood pressure 109 mm[Hg] Cele Sand Work Phone: [facility] 07-13-2023 10:01-0500 Diastolic blood pressure [...] 41.81 kg/m2 Kade Richardson MD Work Phone: [facility] 07-06-2023 14:48-0500 Body weight 119.3 kg Kade Richardson MD Work Phone: [facility] 06-09-2023 08:45-0500 Body height 170.2 cm Michelle Mitali PENSION FUND MANAGER-SPORTS MANAGEMENT INTERN Work Phone: [facility] 06-09-2023 08:45-0500 Body mass index (BMI) [Ratio] 44.48 kg/m2 Michelle Mitali PENSION FUND MANAGER-SPORTS MANAGEMENT INTERN Work Phone: [facility] 06-09-2023 08:45-0500 Body weight 128.82 kg Michelle Jasmine PENSION FUND MANAGER-SPORTS MANAGEMENT INTERN Work Phone: [facility] 06-09-2023 08:45-0500 Diastolic blood pressure 82 mm[Hg] Michelle Jasmine PENSION FUND MANAGER-SPORTS MANAGEMENT INTERN Work Phone: [facility] 06-09-2023 08:45-0500 Heart rate 80 /min Michelle Jasmine PENSION FUND MANAGER-SPORTS MANAGEMENT INTERN Work Phone: [facility] 06-09-2023 08:45-0500 Systolic blood pressure 146 mm[Hg] Michelle Jasmine PENSION FUND MANAGER-SPORTS MANAGEMENT INTERN Work Phone: [facility] 05-26-2023 17:17-0500 Body weight 123.83 kg Christie Phan MD Work Phone: [facility] 04-26-2023 14:42-0500 Body weight 125.19 kg Christie Phan MD Work Phone: [facility] 03-19-2023 11:16-0400 Body temperature 97.7 [degF] Ma Sand Work Phone: [facility] 03-19-2023 11:16-0400 Diastolic blood pressure 54 mm[Hg] Ma Sand Work Phone: [facility] 03-19-2023 11:16-0400 Heart rate 75 /min Ma Sand Work Phone: [facility] 03-19-2023 11:16-0400 Respiratory rate 16 /min Ma Sand Work Phone: [facility] 03-19-2023 11:16-0400 SaO2% (BldA) [Mass fraction] 96 % Ma Sand Work Phone: [facility] 03-19-2023 11:16-0400 Systolic blood pressure 111 mm[Hg] Ma Sand Work Phone: [facility] 02-19-2023 10:56-0400 Body height 170.2 cm Vera Najera MD Work Phone: [facility] 02-19-2023 10:56-0400 Body temperature 97.39 [degF] Vera Najera MD Work Phone: [facility] 02-19-2023 10:56-0400 Body weight 120.75 kg Vera Najera MD Work Phone: [facility] 02-19-2023 10:56-0400 Diastolic blood pressure 69 mm[Hg] Vera Najera MD Work Phone: [facility] 02-19-2023 10:56-0400 Heart rate 110 /min Vera Najera MD Work Phone: [facility] 02-19-2023 10:56-0400 Respiratory rate 16 /min Vera Najera MD Work Phone: [facility] 02-19-2023 10:56-0400 SaO2% (BldA) [Mass fraction] 96 % Vera Najera MD Work Phone: [facility] 02-19-2023 10:56-0400 Systolic blood pressure 132 mm[Hg] Vera Najera MD Work Phone: [facility] 01-22-2023 12:09-0400 Diastolic blood pressure 76 mm[Hg] Ma Sand Work Phone: [facility] 01-22-2023 12:09-0400 Systolic blood pressure 107 mm[Hg] Ma Sand Work Phone: [facility] 01-22-2023 12:08-0400 Body temperature 97.59 [degF] Ma Sand Work Phone: [facility] 01-22-2023 12:08-0400 Heart rate 102 /min Ma Sand Work Phone: [facility] 01-22-2023 12:08-0400 Respiratory rate 16 /min Ma Sand Work Phone: [facility] 01-22-2023 12:08-0400 SaO2% (BldA) [Mass fraction] 97 % Ma Sand Work Phone: [facility] 11-19-2022 11:00-0400 Body temperature 97.2 [degF] Ma Sand Work Phone: [facility] 11-19-2022 11:00-0400 Diastolic blood pressure 54 mm[Hg] Ma Sand Work Phone: [facility] 11-19-2022 11:00-0400 Heart rate 98 /min Ma Sand Work Phone: [facility] 11-19-2022 11:00-0400 Respiratory rate 16 /min Ma Sand Work Phone: [facility] 11-19-2022 11:00-0400 SaO2% (BldA) [Mass fraction] 98 % Ma Sand Work Phone: [facility] 11-19-2022 11:00-0400 Systolic blood pressure 126 mm[Hg] Ma Sand Work Phone: [facility] 10-22-2022 11:51-0400 Body height 170.2 cm Ma Sand Work Phone: [facility] 10-22-2022 11:51-0400 Body weight 120.66 kg Ma Sand Work Phone: [facility] 10-22-2022 11:51-0400 Respiratory rate 16 /min Ma Sand Work Phone: [facility] 10-22-2022 10:50-0400 Body height 170.2 cm Vera Najera MD Work Phone: [facility] 10-22-2022 10:50-0400 Body temperature 97 [degF] Vera Najera MD Work Phone: [facility] 10-22-2022 10:50-0400 Body weight 120.75 kg Vera Najera MD Work Phone: [facility] 10-22-2022 10:50-0400 Diastolic blood pressure 55 mm[Hg] Vera Najera MD Work Phone: [facility] 10-22-2022 10:50-0400 Heart rate 78 /min Vera Najera MD Work Phone: [facility] 10-22-2022 10:50-0400 Respiratory rate 16 /min Vera Najera MD Work Phone: [facility] 10-22-2022 10:50-0400 SaO2% (BldA) [Mass fraction] 98 % Vera Najera MD Work Phone: [facility] 10-22-2022 10:50-0400 Systolic blood pressure 132 mm[Hg] Vera Najera MD Work Phone: [facility] 09-24-2022 10:22-0400 Body height 170.2 cm Ma Sand Work Phone: [facility] 09-24-2022 10:22-0400 Body temperature 97 [degF] Ma Sand Work Phone: [facility] 09-24-2022 10:22-0400 Body weight 120.2 kg Ma Sand Work Phone: [facility] 09-24-2022 10:22-0400 Diastolic blood pressure 81 mm[Hg] Ma Sand Work Phone: [facility] 09-24-2022 10:22-0400 Heart rate 77 /min Ma Sand Work Phone: [facility] 09-24-2022 10:22-0400 Respiratory rate 16 /min Ma Sand Work Phone: [facility] 09-24-2022 10:22-0400 SaO2% (BldA) [Mass fraction] 97 % Ma Sand Work Phone: [facility] 09-24-2022 10:22-0400 Systolic blood pressure 116 mm[Hg] Ma Sand Work Phone: [facility] 09-07-2022 14:03-0400 Body weight 120.2 kg Christie Phan MD Work Phone: [facility] 08-27-2022 09:45-0400 Body height 170.2 cm Rebekah Rojas PENSION FUND MANAGER.SPORTS MANAGEMENT INTERN Work Phone: [facility] 08-27-2022 09:45-0400 Body temperature 97.7 [degF] Rebekah Rojas APRN.SPORTS MANAGEMENT INTERN Work Phone: [facility] 08-27-2022 09:45-0400 Body weight 118.66 kg Rebekah Rojas APRN.SPORTS MANAGEMENT INTERN Work Phone: [facility] 08-27-2022 09:45-0400 Diastolic blood pressure 55 mm[Hg] Rebekah Rojas APRN.SPORTS MANAGEMENT INTERN Work Phone: [facility] 08-27-2022 09:45-0400 Heart rate 63 /min Rebekah Rojas APRN.SPORTS MANAGEMENT INTERN Work Phone: [facility] 08-27-2022 09:45-0400 Respiratory rate 16 /min Rebekah Rojas APRN.SPORTS MANAGEMENT INTERN Work Phone: [facility] 08-27-2022 09:45-0400 SaO2% (BldA) [Mass fraction] 96 % Rebekah Rojas APRN.SPORTS MANAGEMENT INTERN Work Phone: [facility] 08-27-2022 09:45-0400 Systolic blood pressure 117 mm[Hg] Rebekah Rojas APRN.SPORTS MANAGEMENT INTERN Work Phone: [facility] 05-20-2022 13:28-0500 Body height 170.2 cm Vera Najera MD Work Phone: [facility] 05-20-2022 13:28-0500 Body temperature 97.7 [degF] Vera Najera MD Work Phone: [facility] 05-20-2022 13:28-0500 Diastolic blood pressure 70 mm[Hg] Vera Najera MD Work Phone: [facility] 05-20-2022 13:28-0500 Heart rate 93 /min Vera Najera MD Work Phone: [facility] 05-20-2022 13:28-0500 Respiratory rate 16 /min Vera Najera MD Work Phone: [facility] [facility]2022 13:28-0500 SaO2% (BldA) [Mass fraction] 97 % Vera Najera MD Work Phone: [facility] 05-20-2022 13:28-0500 Systolic blood pressure 127 mm[Hg] Vera Najera MD Work Phone: [facility] 03-18-2022 10:49-0400 Body height 170.2 cm Vera Najera MD Work Phone: [facility] 03-18-2022 10:49-0400 Body temperature 97.81 [degF] Vera Najera MD Work Phone: [facility] 03-18-2022 10:49-0400 Body weight 113.4 kg Vera Najera MD Work Phone: [facility] 03-18-2022 10:49-0400 Diastolic blood pressure 49 mm[Hg] Vera Najera MD Work Phone: [facility] 03-18-2022 10:49-0400 Heart rate 86 /min Vera Najera MD Work Phone: [facility] 03-18-2022 10:49-0400 Respiratory rate 16 /min Vera Najera MD Work Phone: [facility] 03-18-2022 10:49-0400 SaO2% (BldA) [Mass fraction] 98 % Vera Najera MD Work Phone: [facility] 03-18-2022 10:49-0400 Systolic blood pressure 145 mm[Hg] Vera Najera MD Work Phone: [facility] 03-09-2022 11:41-0400 Body height 170.2 cm Christie Phan MD Work Phone: [facility] 03-09-2022 11:41-0400 Body weight 112.49 kg Christie Phan MD Work Phone: [facility] 03-09-2022 11:41-0400 Diastolic blood pressure 100 mm[Hg] Christie Phan MD Work Phone: [facility] 03-09-2022 11:41-0400 Systolic blood pressure 158 mm[Hg] Christie Phan MD Work Phone: [facility] 03-04-2022 10:39-0400 Body height 170.2 cm Vera Najera MD Work Phone: [facility] 03-04-2022 10:39-0400 Body temperature 97.5 [degF] Vera Najera MD Work Phone: [facility] 03-04-2022 10:39-0400 Body weight 112.76 kg Vera Najera MD Work Phone: [facility] 03-04-2022 10:39-0400 Diastolic blood pressure 48 mm[Hg] Vera Najera MD Work Phone: [facility] 03-04-2022 10:39-0400 Heart rate 79 /min Vera Najera MD Work Phone: [facility] 03-04-2022 10:39-0400 Respiratory rate 16 /min Vera Najera MD Work Phone: [facility] 03-04-2022 10:39-0400 SaO2% (BldA) [Mass fraction] 99 % Vera Najera MD Work Phone: [facility] 03-04-2022 10:39-0400 Systolic blood pressure 132 mm[Hg] Vera Najera MD Work Phone: [facility] 11-26-2021 16:00-0400 Body height 168.91 cm Mirela Kelsey Other [employer] Other 11-26-2021 16:00-0400 Body mass index (BMI) [Ratio] 37.68 kg/m2 Mirela Kelsey Other [employer] Other 11-26-2021 16:00-0400 Body temperature 98.4 [degF] Mirela Buffy Other [employer] Other 11-26-2021 16:00-0400 Body weight 107.5 kg Mirela Kelsey Other [employer] Other 11-26-2021 16:00-0400 Diastolic blood pressure 61 mm[Hg] Mirela Kelesy Other [employer] Other 11-26-2021 16:00-0400 Systolic blood pressure 115 mm[Hg] Mirela Kelsey Other [employer] Other 10-24-2021 08:18-0400 Body weight 108.86 kg Lynne Ni MD Work Phone: [facility] 10-24-2021 08:18-0400 Diastolic blood pressure 42 mm[Hg] Lynne Ni MD Work Phone: [facility] 10-24-2021 08:18-0400 Heart rate 72 /min Lynne Ni MD Work Phone: [facility] 10-24-2021 08:18-0400 Systolic blood pressure 106 mm[Hg] Lynne Ni MD Work Phone: [facility] 10-15-2021 15:45-0400 Body height 168.91 cm Mirela Kelsey Other [employer] Other 10-15-2021 15:45-0400 Body mass index (BMI) [Ratio] 38.31 kg/m2 Mirela Kelsey Other [employer] Other 10-15-2021 15:45-0400 Body temperature 98.1 [degF] Mirela Kelsey Other [employer] Other 10-15-2021 15:45-0400 Body weight 109.32 kg Mirela Kelsey Other [employer] Other 10-15-2021 15:45-0400 Diastolic blood pressure 60 mm[Hg] Mirela Kelsey Other [employer] Other 10-15-2021 15:45-0400 Systolic blood pressure 114 mm[Hg] Mirela Kelsey Other [employer] Other 09-11-2021 15:15-0400 Body height 168.91 cm Mirela Kelsey Other [employer] Other 09-11-2021 15:15-0400 Body mass index (BMI) [Ratio] 37.99 kg/m2 Mirela Kelsey Other [employer] Other 09-11-2021 15:15-0400 Body temperature 97.9 [degF] Mirela Kelsey Other [employer] Other 09-11-2021 15:15-0400 Body weight 108.41 kg Mirela Buffy Other [employer] Other 09-11-2021 15:15-0400 Diastolic blood pressure 83 mm[Hg] Mirela Kelsey Other [employer] Other 09-11-2021 15:15-0400 Systolic blood pressure 144 mm[Hg] Mirela Kelsey Other [employer] Other 10-07-2020 12:45-0400 Diastolic blood pressure 78 mm[Hg] [facility] [employer] Phone: 10-07-2020 12:45-0400 Heart rate 68 /min [facility] [employer] Phone: 10-07-2020 12:45-0400 SaO2% (BldA) [Mass fraction] 99 % [employer] [employer] Phone: 10-07-2020 12:45-0400 Systolic blood pressure 112 mm[Hg] [facility] [employer] Phone: 10-07-2020 10:45-0400 Respiratory rate 22 /min [facility] [employer] Phone: 10-07-2020 09:01-0400 Body height 170.2 cm [facility] [employer] Phone: 10-07-2020 09:01-0400 Body mass index (BMI) [Ratio] 36.65 kg/m2 [facility] [employer] Phone: 10-07-2020 09:01-0400 Body temperature 97.81 [degF] [facility] [employer] Phone: 10-07-2020 09:01-0400 Body weight 106.14 kg [facility] [employer] Phone: Encounters Encounter Date Encounter Type Care Provider Facility Start: 02-21-2025 End: 02-22-2025 ambulatory VERA NAJERA Facility:[facility] Start: 02-14-2025 End: 02-14-2025 Office outpatient visit 15 minutes Bernabe English MD Work Phone: [facility] Comment on above: Pilonidal cyst (Primary Dx); Hidradenitis suppurativa Start: 02-14-2025 End: 02-14-2025 ambulatory BERNABE ENGLISH Not Available Start: 02-14-2025 End: 02-14-2025 Bamboo flowsheet Bernabe English MD Work Phone: [facility] [place] [facility] Start: 02-14-2025 End: 02-14-2025 Bamderik flowsqian English MD Work Phone: [facility] [place] [facility] Start: 02-14-2025 End: 02-14-2025 ambulatory Gay Enciso GEROPSYCHOLOGIST-C Work Phone: [facility] Work Phone: Start: 02-14-2025 End: 02-14-2025 Patient encounter procedure Margie Arnett NP -[facility] ealth Pain Mgmt Work Phone: Start: 02-08-2025 End: 02-09-2025 ambulatory LYNNE TSAI Facility:[facility] Start: 01-31-2025 End: 01-31-2025 Admission to same day surgery center Adolfo Kang MD -[facility] Work Phone: Start: 01-31-2025 End: 01-31-2025 ambulatory Gay Enciso GEROPSYCHOLOGIST-C Work Phone: [facility] Work Phone: Start: 01-31-2025 Non-patient / Non-visit Adolfo Kang MD -[facility] Pain Mgmt Work Phone: Start: [...] Start: 01-17-2025 End: 01-17-2025 ambulatory Gay Enciso GEROPSYCHOLOGIST-C Work Phone: [facility] Work Phone: Start: 01-17-2025 End: 01-17-2025 Patient encounter procedure Margie Arnett -[facility] Pain Mgmt Work Phone: Start: 01-11-2025 End: 01-12-2025 ambulatory Chair 16 [place] Work Phone: Hematology/Oncology Comment on above: Other systemic lupus erythematosus with other organ involvement (HCC) (Primary Dx); Elevated LFTs; Anemia of chronic disease; Elevated sed rate; Elevated C-reactive protein (CRP); Vitamin D deficiency; Vitamin B12 deficiency; Screening-pulmonary TB Start: 12-27-2024 End: 12-27-2024 ambulatory VERA NAJERA Facility:[facility] Start: 12-14-2024 End: 12-14-2024 Chart abstracting [facility] Main Work Phone: Neurology Comment on above: CMN Start: 12-14-2024 End: 12-15-2024 ambulatory Chair 16 [place] Work Phone: Hematology/Oncology Comment on above: Other systemic lupus erythematosus with other organ involvement (HCC) (Primary Dx) Start: 12-12-2024 End: 12-12-2024 Patient encounter procedure Bandar Batista APRN -[facility] Gastro Work Phone: Start: 11-30-2024 End: 11-30-2024 Follow-up encounter Vaibhav Carvalho APRN.CNP Work Phone: Hematology/Oncology Comment on above: Results Start: 11-30-2024 End: 11-30-2024 ambulatory Gay Enciso GEROPSYCHOLOGIST-C Work Phone: [facility] Work Phone: Start: 11-30-2024 End: 11-30-2024 Patient encounter procedure Margie Arnett NP -[facility] Pain Mgmt Work Phone: Start: [...] Not Available Start: 11-22-2024 ambulatory Janes Barfield Facility:[facility] Start: 11-22-2024 Registered Recurring Janes Barfield MD - Credible Start: 11-21-2024 End: 11-21-2024 ambulatory Gay Enciso GEROPSYCHOLOGIST-C Work Phone: [facility] Work Phone: Start: 11-21-2024 End: 11-21-2024 Patient encounter procedure Adolfo Kang MD -[facility] Work Phone: Start: 11-21-2024 Non-patient / Non-visit Adolfo Kang MD -[facility] Work Phone: Start: 11-20-2024 End: 11-20-2024 Telephone encounter Vaibhav Carvalho APRN.CNP Work Phone: Hematology/Oncology Comment on above: Lab Orders Start: 11-16-2024 End: 11-17-2024 ambulatory Chair 16 [place] Work Phone: Hematology/Oncology Comment on above: Other systemic lupus erythematosus with other organ involvement (HCC) (Primary Dx) Start: 11-15-2024 End: 11-20-2024 Telephone encounter Cesilia Whalen [facility] Work Phone: [facility] HB-3 Start: 11-13-2024 End: 11-13-2024 Patient encounter procedure Adolfo Kang MD -[facility] Mgmt Work Phone: Start: 10-31-2024 End: 10-31-2024 [...] Start: 10-17-2024 End: 10-17-2024 ambulatory MANUEL FERRIS Facility:[facility] Start: 10-07-2024 End: 10-07-2024 Patient encounter [...] both feet; Long-term use of high-risk medication; 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; Bilateral hand pain; Family history of Crohn's disease; 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; Bilateral wrist pain Start: 10-07-2024 End: 10-07-2024 Telemedicine consultation with patient Lynne Ni MD Work Phone: Rheumatology Start: 10-07-2024 End: 10-07-2024 ambulatory LYNNE NI Facility:[facility] Start: 10-06-2024 End: 10-06-2024 Telephone encounter [...] 09-20-2024 End: 09-20-2024 Specialty Pharmacy Aidee Quintanilla [facility] Comment on above: SPP Inflammatory Conditions - Medication Refill (Benlysta) Start: 09-19-2024 End: 09-19-2024 ambulatory MANUEL FERRIS Facility:[facility] Start: 09-19-2024 End: 09-19-2024 Patient encounter procedure Deborah Arroyo [facility] Work Phone: [employer] Comment on above: Fibromyalgia (Primary Dx); Family history of disease of aorta; Family history of cancer Generalized articula r hypermobility (Primary Dx); Chronic pain syndrome; Discoid lupus erythematosus; Family history of pneumothorax in son; Family history of cancer; Family history of mild aortic dilation in daughter Start: 09-19-2024 End: 09-19-2024 ambulatory LYNNE NI Facility:[facility] Start: 09-18-2024 End: 09-18-2024 Telephone encounter Vera Najera MD Work Phone: [facility] Comment on above: Future Appointment Start: 09-18-2024 End: 09-18-2024 ambulatory Chair 19 [place] Work Phone: Hematology/Oncology Comment on above: Other systemic lupus erythematosus with other organ involvement (HCC) (Primary Dx) Refill Request Start: 09-07-2024 End: 09-07-2024 Follow-up encounter Vaibhav Carvalho APRN.SPORTS MANAGEMENT INTERN Work Phone: Hematology/Oncology Comment on above: Results [...] Office outpatient visit 25 minutes Vaibhav Carvalho APRN.SPORTS MANAGEMENT INTERN Work Phone: Hematology/Oncology Comment on above: Hypogammaglobulinemia (HCC) (Primary Dx) ; Vitamin B12 deficiency; Other iron deficiency anemia; Megaloblastic anemia due to vitamin B12 deficiency Start: 09-06-2024 End: 09-06-2024 ambulatory VAIBHAV CARVALHO Facility:[facility] Start: 09-04-2024 End: 09-04-2024 Office outpatient visit 25 minutes Gordo Barfield MD Work Phone: [facility] Comment on above: Thyroid nodule (CMS/HCC) (Primary Dx); LPRD (laryngopharyngeal reflux disease) Start: 09-04-2024 End: 09-04-2024 ambulatory GORDO BARFIELD Not Available Start: 09-04-2024 End: 09-04-2024 Bamderik flowsheet Gordo Bar[facility] MD [facility] Start: 09-04-2024 End: 09-04-2024 Bamderik flowsheet Gordo Barfield MD Work Phone: [facility] Start: 09-01-2024 End: 09-02-2024 Refill Lynne Ni MD Work Phone: Rheumatology Comment on above: Refill Request Start: 08-29-2024 End: 08-29-2024 ambulatory MANUEL FERRIS Facility:[facility] Start: 08-28-2024 End: 08-28-2024 Telephone encounter Vaibhav Carvalho APRN.CNP Work Phone: Hematology/Oncology Comment on above: Lab Orders Start: 08-24-2024 End: 08-24-2024 Clinisync Result Encounter Gordo Barfield MD Work Phone: [facility] External Department Unsolicited Start: 08-24-2024 End: 08-24-2024 Clinisync Result Encounter Gordo Barfield MD Work Phone: [facility] External Department Unsolicited Start: 08-22-2024 End: 08-22-2024 ambulatory Gay Enciso NP-C Work Phone: [facility] Work Phone: Start: 08-22-2024 End: 08-22-2024 Patient encounter procedure Gay Enciso NP-C Work Phone: [facility] Work Phone: Start: 08-17-2024 End: 08-17-2024 Specialty Pharmacy Aidee Quintanilla [facility] Specialty Pharm[facility] Comment on above: [...] End: 07-31-2024 ambulatory Gay GALEANO Work Phone: [facility] Work Phone: Start: 07-31-2024 End: 07-31-2024 Patient encounter procedure Gay GALEANO Work Phone: [facility] Pain Mgmt Work Phone: Start: 07-26-2024 End: 07-26-2024 Office outpatient visit 25 minutes Lois Holm MD Work Phone: [facility] Comment on above: Sinus tachycardia (Primary Dx); Shortness of breath; Paroxysmal supraventricular tachycardia (CMS-HCC); Essential hypertension; Obstructive sleep apnea syndrome; Morbid obesity (Multi); Current smoker Start: 07-26-2024 End: 07-26-2024 ambulatory LOIS Batista [facility] Ambulatory Start: 07-25-2024 End: 07-25-2024 Bamboo flowsheet Brenabe English MD Work Phone: [facility] DERM [...] 07-25-2024 End: 07-25-2024 Specialty Pharmacy Aidee Dwight [facility] Comment on above: [...] Non-patient / Non-visit Gay GALEANO Work Phone: [facility] Pain Mgmt Work Phone: Start: 07-19-2024 End: 07-19-2024 Admission to same day surgery center Gay GALEANO Work Phone: [facility] Work Phone: Start: 07-19-2024 End: 07-19-2024 ambulatory Gay GALEANO Work Phone: [facility] Work Phone: Start: 07-12-2024 End: 07-12-2024 ambulatory MAKRY BARNES Facility:[facility] Start: 07-12-2024 End: 07-12-2024 Patient [...] lupus erythematosus Start: 07-10-2024 End: 07-10-2024 ambulatory [facility] Work Phone: Start: 07-10-2024 End: 07-10-2024 [facility] Work Phone: Start: 07-09-2024 End: 07-10-2024 Telephone encounter Lynne Ni MD Work Phone: Rheumatology Comment on above: Results Start: 06-30-2024 End: 06-30-2024 ambulatory LYNNE NI Facility:[facility] Start: 06-29-2024 End: 06-29-2024 Specialty Pharmacy Aidee Quintanilla [facility] Comment on [...] 06-16-2024 End: 06-20-2024 Telephone encounter Vaibhav Carvalho APRN.SPORTS MANAGEMENT INTERN Work Phone: Hematology/Oncology Start: 06-15-2024 End: 06-15-2024 Telephone encounter Oly WARREN Work Phone: [facility] Start: 06-14-2024 End: 06-14-2024 Nursing evaluation of patient and report Breath Test Sivlerio Cp Nsg Wl Work Phone: [facility] Comment on above: Diarrhea, unspecified type (Primary Dx); Abdominal pressure Start: 06-13-2024 End: 01-21-2025 Office outpatient visit 25 minutes Vaibhav Carvalho APRN.SPORTS MANAGEMENT INTERN Work Phone: Hematology/Oncology Comment on above: Megaloblastic [...] 06-12-2024 End: 06-13-2024 Telephone encounter Vaibhav Carvalho APRN.SPORTS MANAGEMENT INTERN Work Phone: Hematology/Oncology Comment on above: Lab Orders Start: 06-06-2024 End: 06-06-2024 Bamboo flowsheet Oly WARREN Work Phone: [facility] Start: 06-06-2024 End: 06-10-2024 Bamboo flowsheet Oly WARREN Work Phone: [facility] Start: 06-06-2024 End: 06-10-2024 Clinisync Result Encounter Oly WARREN Work Phone: [facility] External Department Unsolicited Start: 06-06-2024 End: 06-06-2024 Specialty Pharmacy Aidee Quintanilla [facility] Comment on above: [...] 05-15-2024 End: 05-15-2024 Social Work Deisy Jaime [facility] Hematology/Oncology Start: 05-12-2024 End: 05-12-2024 Specialty Pharmacy Aidee Quintanilla [facility] Comment on above: SPP Inflammatory Conditions - Medication Refill (Benlysta) Start: 04-28-2024 End: 04-28-2024 Orders Only Pepper Cotter LPN [facility] Comment on above: Peripheral vascular disease, unspecified (CMS-HCC) (Primary Dx); Cold extremities; Systemic lupus erythematosus (CMS-HCC) Start: 04-26-2024 End: 04-26-2024 ambulatory [facility] Facility:[facility] Start: 04-26-2024 End: 04-26-2024 Nursing evaluation of patient and report Cele Marshall Work Phone: Hematology/Oncology Comment on above: Elevated sed rate (Primary Dx); Megaloblastic anemia due to vitamin B12 deficiency Start: 04-14-2024 End: 10-05-2024 Telephone encounter [facility] Work Phone: [facility] Comment on above: Patient Update; Appointment Start: 04-11-2024 End: 04-11-2024 Specialty Pharmacy Aidee Quintanilla [facility] Comment on above: SPP Inflammatory Conditions - Medication Refill (Benlysta) Start: 04-10-2024 End: 04-10-2024 Bamboo flowsheet Gordo Barfield MD Work Phone: [facility] Start: 04-10-2024 End: 04-10-2024 Bamboo flowsheet Gordo Barfield MD Work Phone: [facility] Start: 04-10-2024 End: 04-10-2024 Telephone encounter Vera Najera MD Work Phone: [facility] Comment on above: Appointment Start: 04-10-2024 End: 04-10-2024 Office outpatient visit 25 minutes Gordo Barfield MD Work Phone: [facility] Comment on above: LPRD (laryngopharyngeal reflux disease) (Primary Dx); Acute otalgia, right Start: 04-10-2024 End: 04-10-2024 ambulatory GORDO BARFIELD Not Available Start: 04-07-2024 End: 04-07-2024 Social Work Deisy Jaime [facility] Hematology/Oncology Start: 04-06-2024 End: 04-06-2024 Clinisync Result Encounter Oly WARREN Work Phone: [facility] External Department Unsolicited Start: 04-06-2024 End: 04-06-2024 Clinisync Result Encounter Oly WARREN Work Phone: [facility] External Department Unsolicited Start: 04-06-2024 End: 04-06-2024 Office outpatient new 30 minutes Hayden Arciniega MD Work Phone: [facility] Comment on above: Systemic lupus erythematosus (CMS-HCC) ( Primary Dx); Cold extremities; Pain of lower extremity, unspecified laterality; Rheumatoid arthritis, involving unspecified site, unspecified whether rheumatoid factor present (CMS-HCC); Current smoker; 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 Start: 04-03-2024 End: 04-03-2024 Refill Marky Mike DO Work Phone: [facility] Comment on above: Oral [...] 03-30-2024 ambulatory Maico Douglas MD Work Phone: [facility] Start: 03-27-2024 End: [...] Start: 03-27-2024 End: 03-28-2024 ambulatory VERA NAJERA Facility:[facility] Start: 03-23-2024 End: 03-23-2024 ambulatory [...] Start: 03-23-2024 End: 03-23-2024 ambulatory MANUEL FERRIS Facility:[facility] Start: 03-20-2024 End: 03-30-2024 Telephone encounter Akiko Cooper MD Work Phone: [facility] Start: 03-18-2024 End: 03-18-2024 ambulatory LYNNE NI Facility:[facility] Start: 03-18-2024 End: 03-18-2024 Patient [...] both feet; Long-term use of high-risk medication; 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; Bilateral hand [...] Not Available Start: 03-16-2024 End: 03-16-2024 ambulatory GEROPSYCHOLOGIST-C Gay Enciso Work Phone: [facility] Work Phone: Start: 03-16-2024 End: 03-16-2024 Patient encounter procedure GEROPSYCHOLOGIST-C Gay Enciso Work Phone: [facility] Work Phone: Start: 03-13-2024 End: 03-13-2024 Specialty Pharmacy Aidee Quintanilla [facility] Pharm[facility] Comment on above: SPP Inflammatory Conditions - Medication Refill (Benlysta - [facility] 09/2024) Start: 03-08-2024 End: 03-08-2024 ambulatory [facility] Start: 03-07-2024 End: 03-08-2024 Chart abstracting [facility] Main Work Phone: Neurology Comment on above: cmn Start: 03-02-2024 End: 03-02-2024 Refill Zita Cuellar GEROPSYCHOLOGIST Work Phone: [facility] 210 Comment on above: Lumbosacral radiculopathy at L5; Degenerative disc disease, lumbar; Cervical radiculopathy at C5 Start: 02-28-2024 End: 02-28-2024 ambulatory GEROPSYCHOLOGIST-C Gay Enciso Work Phone: [facility] Work Phone: Start: 02-28-2024 End: 02-28-2024 Patient encounter procedure GEROPSYCHOLOGIST-C Gay Enciso Work Phone: [facility] Pain Management Work Phone: Start: 02-22-2024 End: 02-22-2024 Telephone encounter Oly CHO Work Phone: [facility] Comment on above: 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 ) Start: 02-21-2024 End: 02-21-2024 Nursing evaluation of patient and report Cele Nurse Dre Marshall Work Phone: Hematology/Oncology Comment on above: Elevated sed rate (Primary Dx); Megaloblastic anemia due to vitamin B12 deficiency Start: 02-18-2024 End: 02-18-2024 Telephone encounter Lynne Ni MD Work Phone: Rheumatology Start: 02-16-2024 Non-patient / Non-visit GEROPSYCHOLOGIST-C Gay Enciso Work Phone: [facility] Work Phone: Start: 02-16-2024 End: 02-16-2024 Admission to same day surgery center GEROPSYCHOLOGIST-C Gay Enciso Work Phone: [facility] Work Phone: Start: 02-16-2024 End: 02-16-2024 ambulatory GEROPSYCHOLOGIST-C Gay Enciso Work Phone: [facility] Work Phone: Start: 02-15-2024 End: 02-15-2024 Telephone encounter Lexus Heck APRN.SPORTS MANAGEMENT INTERN Work Phone: Neurology Comment on above: Orders (PAP RX.) Start: 02-14-2024 End: 02-14-2024 Follow-up encounter Aidee Quintanilla [facility] Comment on above: SPP Inflammatory Conditions - Follow-up (Benlysta); Insurance Authorization ([place] Renewal Submitted) Start: 02-14-2024 End: 02-14-2024 ambulatory Lexuschichi Heck APRN.SPORTS MANAGEMENT INTERN Work Phone: Neurology Comment on above: JOSE RAFAEL (obstructive sleep apnea) (Primary D x); Somnolence, daytime SPP Inflammatory Con ditions - Medication Refill (Benlysta - [facility] 09/2024) Start: 02-14-2024 End: 02-14-2024 Telemedicine consultation with patient Lexus Heck APROrionSPORTS MANAGEMENT INTERN Work Phone: Neurology Start: 02-09-2024 End: 02-09-2024 Bamboo flowsheet Zita Cuellar GEROPSYCHOLOGIST Work Phone: [facility] NE[facility] Start: 02-09-2024 End: 02-09-2024 Bamboo flowsheet Zita Cuellar GEROPSYCHOLOGIST Work Phone: [facility] NEUROLOG[facility] Start: 02-09-2024 End: 02-09-2024 Phys/qhp telephone evaluation 21-30 min Zita Cuellar GEROPSYCHOLOGIST Work Phone: [facility]O 210 Comment on above: Lumbosacral radiculopathy at L5 (Primary Dx); Degenerative disc disease, lumbar; Cervical radiculopathy at C5 Start: 02-07-2024 End: 02-07-2024 Refill Zita Cuellar GEROPSYCHOLOGIST Work Phone: [facility] 210 Comment on above: Autoimmune disease (CMS/HCC); Fibromyalgia; Numbness Start: 01-28-2024 End: 01-31-2024 ambulatory Alhaji Head DO Work Phone: [facility] Work Phone: Comment on above: Blood work Start: 01-28-2024 End: 01-28-2024 Patient encounter procedure [facility] [place] Work Phone: Start: 01-27-2024 End: 01-27-2024 Telemedicine [...] 01-20-2024 Refill Kade Richardson MD Work Phone: [facility] 210 Comment on above: Degenerative disc disease, lumbar (Prima ry Dx); Lumbosacral radiculopathy at L5 Start: 01-18-2024 End: 01-19-2024 Specialty Pharmacy Aidee Quintanilla [facility] Comment on above: [...] apnea syndrome Start: 12-24-2023 End: 12-24-2023 ambulatory [facility] Ambulatory Start: 12-16-2023 End: 12-16-2023 ambulatory [facility] Work Phone: Start: 12-16-2023 End: 12-16-2023 Patient encounter procedure [facility] Infectious Disease Work Phone: Start: 12-13-2023 Specialty Pharmacy Aidee Quintanilla [facility] Pharm[facility] Comment on above: [...] acid Start: 11-15-2023 Specialty Pharmacy Aidee Quintanilla [facility] Pharm[facility] Comment on above: SPP Inflammatory Conditions - Medication Refill (Benlysta - NCA 09/2024) Start: 11-11-2023 Refill Lynne Ni MD Work Phone: Rheumatology Comment on above: Refill Request Start: 11-04-2023 End: 11-04-2023 [facility] Work Phone: Start: 11-04-2023 End: 11-04-2023 Patient encounter procedure [facility] Work Phone: [...] above: Cdiff Start: 10-20-2023 End: 10-20-2023 ambulatory [facility] Work Phone: Start: 10-20-2023 End: 10-20-2023 Patient encounter procedure [facility] Work Phone: Start: 10-12-2023 Specialty Pharmacy Aidee Quintanilla [facility] Pharmacy Comment on above: [...] of Plaquenil; Long-term use of high-risk medication; 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; Raynaud's disease [...] Start: 09-22-2023 End: 09-22-2023 Patient encounter procedure [facility] Gastroenterology Work Phone: Start: 09-13-2023 Specialty Pharmacy Aidee Quintanilla [facility] Pharm[facility] Comment on above: [...] with patient Vera Najera MD Work Phone: [facility] Start: 09-04-2023 Telephone encounter Lynne Ni MD Work Phone: Rheumatology Comment on above: Results Start: 08-31-2023 End: 08-31-2023 Nursing evaluation of patient and report Cele Marshall Work Phone: Hematology/Oncology Comment on above: 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); Elevated sed rate Start: 08-12-2023 Specialty Pharmacy Aidee Quintanilla [facility] Pharm[facility] Comment on above: SPP Inflammatory Conditions - Medication Refill (Benlysta ) Start: 08-05-2023 End: 08-05-2023 Nursing evaluation of patient and report Cele Marshall Work Phone: Hematology/Oncology Comment on above: 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); Elevated sed rate Start: 07-28-2023 Non-patient / Non-visit [facility] Gianna kenney [facility] Gastroenterology Work Phone: Start: 07-13-2023 ambulatory Aidee Quintanilla [facility] Start: 07-13-2023 End: 07-13-2023 Nursing evaluation of patient and report Cele Marshall Work Phone: Hematology/Oncology Comment on above: 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); Elevated sed rate SPP Inflammatory Con ditions - Medication Refill (Benlysta ) Start: 07-13-2023 End: 07-13-2023 Office outpatient new 45 minutes Lois Holm MD Work Phone: [facility] Comment on above: Shortness of breath (Primary Dx); Paroxysmal supraventricular tachycardia; PAC (premature atrial contraction); Current smoker; Systemic lupus erythematosus, unspecified SLE type, unspecified organ involvement status (CMS/HCC); Palpitations; Obstructive sleep apnea syndrome; Morbid obesity (CMS/HCC); Bilateral lower extremity edema Start: 07-06-2023 End: 07-06-2023 Office outpatient visit 25 minutes Kade Richardson MD Work Phone: [facility] 210 Comment on above: Autoimmune disease (CMS/HCC) (Primary Dx ); Autonomic dysfunction; Lumbosacral radiculopathy; Bilateral leg weakness Start: 07-05-2023 Chart abstracting Kade Richardson MD Work Phone: [facility] 210 Start: 06-09-2023 End: 06-09-2023 Office outpatient new 60 minutes Michelle Jasmine PENSION FUND MANAGER-SPORTS MANAGEMENT INTERN Work Phone: [facility] [place] Comment on above: Irregular heart rate (Primary [...] deficiency; Elevated sed rate; Bilateral wrist pain; 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; Steroid-induced [...] patient Lynne Ni MD Work Phone: [facility] Start: 01-28-2023 Refill Christie Phan MD [...] with patient Misty Nelson MD Work Phone: [facility] Start: 12-24-2022 Refill Christie Phan MD Work Phone: Integrated Medicine Comment on above: Refill Request Start: 12-18-2022 Telephone encounter Lidia Argueta RN Work Phone: Hematology/Oncology Comment on above: Care Coordination (appointment) Start: 12-17-2022 End: 12-18-2022 ambulatory Rebekah Rojas APRN.SPORTS MANAGEMENT INTERN Work Phone: Hematology/Oncology Comment on above: 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); Chronic fatigue and malaise Start: 12-17-2022 End: 12-18-2022 Telemedicine consultation with patient Rebekah Rojas APRN.SPORTS MANAGEMENT INTERN Work Phone: [facility] Start: 12-16-2022 Telephone encounter [...] Facility:H1 Start: 09-08-2022 Telephone encounter Angelia [facility] Delivery - Compliance Comment on above: [...] Start: 08-27-2022 End: 08-27-2022 ambulatory Rebekah Rojas APRN.SPORTS MANAGEMENT INTERN Work Phone: Hematology/Oncology Comment on above: 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); Elevated sed rate; High total serum IgM; Chronic fatigue and malaise; JOSE RAFAEL (obstructive sleep apnea) Start: 08-27-2022 End: 08-27-2022 Patient encounter procedure Rebekah Rojas APRN.SPORTS MANAGEMENT INTERN Work Phone: [facility] Start: 08-19-2022 Telephone encounter [...] 07-27-2022 End: 07-27-2022 Telemedicine consultation with patient Lxeus Heck APRN.SPORTS MANAGEMENT INTERN Work Phone: [facility] Start: 07-24-2022 ambulatory Lynne Ni MD Work Phone: Rheumatology Comment on above: Blood work Start: 07-24-2022 Telephone encounter Vera Najera MD Work Phone: Hematology/Oncology Comment on above: Orders (Lab Orders Before Appoint ment) Start: 07-21-2022 ambulatory Lawanda Miranda MD Work Phone: [facility] Start: 07-21-2022 Patient encounter procedure Lawanda [...] Coordinator [employer] Comment on above: Appointment; 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 Facility:H1 Start: 03-31-2022 Refill Christie Phan MD Work Phone: [facility] Comment on [...] from caregiver Christie Phan MD Work Phone: [facility] Start: 03-18-2022 End: 03-18-2022 Patient encounter procedure Vera Najera MD Work Phone: [place] Start: 03-12-2022 End: 03-13-[address] MANUEL FERRIS . Facility:H1 Start: 03-10-2022 End: 03-10-2022 ambulatory Alhaji Head DO Work Phone: Infectious Disease Comment on above: results Raised level of immu noglobulins (Primary Dx); Wound healing, delayed; Current smoker Start: 03-10-2022 E-mail encounter from caregiver Alhaji Head DO Work Phone: [facility] Start: 03-10-2022 End: 03-10-2022 Telemedicine consultation with patient Misty eNlson MD Work Phone: [employer] Start: 03-09-2022 End: 03-10-2022 ambulatory GAY ENCISO Facility:H1 Start: 03-09-2022 End: 03-09-2022 Office consultation new/estab patient 80 min Christie Phan MD Work Phone: [facility] Comment on [...] encounter procedure Vera Najera MD Work Phone: [place] Start: 03-02-2022 Chart abstracting Vera Najera MD [...] with patient Alhaji Head DO Work Phone: [facility] Start: 02-14-2022 End: 02-15-[address] MANUEL FERRIS . Facility:H1 Start: 11-26-2021 End: 11-26-2021 ambulatory Mirela Kelsey Other [employer] Other Start: 11-26-2021 Office outpatient visit 25 [...] 10-15-2021 End: 10-15-2021 ambulatory Mirela Kelsey Other [employer] Other Start: 10-15-2021 Office outpatient visit 25 minutes Mirela LOPEZ Infectious Disease Start: 10-03-2021 End: [address] MIRELA KELSEY Facility:H1 Start: 09-18-2021 End: 09-18-2021 ambulatory Mirela Kelsey Other [employer] Other Start: 09-18-2021 Telephone encounter Mirela LOPEZ Infectious Disease Start: 09-11-2021 End: 09-11-2021 ambulatory Mirela Kelsey Other [employer] Other Start: 09-11-2021 Office outpatient new 45 minutes Mirela Buffy LOPE[facility] Infectious Disease Start: 10-07-2020 End: 10-08-2020 ambulatory AMEER LEYDI [facility] Start: 10-07-2020 End: 10-07-2020 Subsequent hospital visit by physician [facility] [employer] [facility] [employer] Comment on above: Arrived Start: 09-14-2018 End: 09-17-2018 Patient encounter procedure VICTOR MANUEL GUZMAN [facility] Procedures Date Procedure Procedure Detail Performing Clinician Start: 01-31-2025 DH Nerve Radio Frequ ency (Bilateral) Gay Enciso GEROPSYCHOLOGIST-C Work Phone: Start: 01-11-2025 Blood count complete automated Lynne Ni MD Work Phone: Start: 10-02-2024 Blood count complete automated Lynne Ni MD Work Phone: Start: 10-02-2024 C-reactive protein Christie Ni MD Work Phone: Start: 09-06-2024 Assay of gammaglobul in iga igd igg igm each Vaibhavanil Carvalho PENSION FUND MANAGER.SPORTS MANAGEMENT INTERN Work Phone: Start: 08-24-2024 soft tissue head & neck real time imge docm Gordo Barfield MD Work Phone: Start: 07-19-2024 Injection of local anesthetic into sacroiliac joint Gay Enciso GEROPSYCHOLOGIST-C Work Phone: Start: 06-13-2024 Blood count complete auto&auto difrntl wbc Vaibhav Carvalho PENSION FUND MANAGER.SPORTS MANAGEMENT INTERN Work Phone: Start: 06-06-2024 IGP,APTIMA HPV,AGE GDLN [...] Injection of local anesthetic into sacroiliac joint GEROPSYCHOLOGIST-C Gay Enciso Work Phone: Start: 07-13-2023 Ecg routine ecg w/le ast 12 lds w/i&r Lois Holm MD Work Phone: Start: 06-09-2023 Ecg routine ecg w/le ast 12 lds w/i&r Michelle Jasmine PENSION FUND MANAGER-SPORTS MANAGEMENT INTERN Work Phone: Start: 09-10-2022 Microscopic observat ion [...] 09-11-2027 Screening for malignant neoplasm of cervix [facility] Start: 06-06-2027 Screening for malignant neoplasm of cervix [facility] Start: 09-10-2025 Screening for malignant neoplasm of cervix Pap Smear [facility] Start: 07-26-2025 End: 07-26-2025 Patient encounter procedure 07/26/2025 11:00 AM EST Office Visit [facility] [address] [place] [address] Lois Holm MD [address] [place] [address] [facility] Start: 07-25-2025 End: 07-25-2025 Patient encounter procedure NOMS [facility] DERM Start: 04-20-2025 End: 01-18-2026 25-hydroxyvitamin D3 [Mass/volume] in Serum or Plasma VITAMIN D 25 HYDROXY Lab Routine Vitamin D deficiency Expected: 04/20/2025 (Approximate), Expires: 01/18/2026 [facility] Comment on above: Expected: 04/20/2025 (Approximate), Expi res: 01/18/2026 Start: 04-20-2025 End: 01-18-2026 C reactive protein [Mass/volume] in Serum or Plasma C-REACTIVE PROTEIN Lab Routine Elevated C-reactive protein (CRP) Elevated sed rate Expected: 04/20/2025 (Approximate), Expires: 01/18/2026 [facility] Comment on above: Expected: 04/20/2025 (Approximate), Expi res: 01/18/2026 Start: 04-20-2025 End: 01-18-2026 CBC panel - Blood by Automated count COMPLETE BLOOD COUNT Lab Routine Anemia of chronic disease Expected: 04/20/2025 (Approximate), Expires: 01/18/2026 [facility] Comment on above: Expected: 04/20/2025 (Approximate), Expi res: 01/18/2026 Start: 04-20-2025 End: 01-18-2026 Comprehensive metabolic 2000 panel - Serum or Plasma COMPREHENSIVE METABOLIC PANEL Lab Routine Elevated LFTs Expected: 04/20/2025 (Approximate), Expires: 01/18/2026 [facility] Work Phone: Comment on above: Expected: 04/20/2025 (Approximate), Expi res: 01/18/2026 Start: 04-20-2025 End: 01-18-2026 Erythrocyte sedimentation rate SEDIMENTATION RATE, WESTERGREN Lab Routine Elevated C-reactive protein (CRP) Elevated sed rate Expected: 04/20/2025 (Approximate), Expires: 01/18/2026 [facility] Comment on above: Expected: 04/20/2025 (Approximate), Expi res: 01/18/2026 Start: 04-07-2025 Screening for malignant neoplasm of breast Mammogram [facility] Start: 04-06-2025 Adult BMI Screening Adult BMI Screening [facility] Start: 04-06-2025 Screening for malignant neoplasm of breast Mammogram [facility] Start: 04-06-2025 Tobacco Screening Tobacco Screening [facility] Start: 03-19-2025 End: 03-19-2025 Patient encounter procedure NOMLucinda SELVIN SANTO Start: 03-17-2025 Diabetes mellitus screening Diabetes Screening [facility] Start: 02-21-2025 End: 02-21-2025 ambulatory Hematology/Oncology Comment on above: 3 mo F/U-IVIG Start: 02-21-2025 End: 02-21-2025 Patient encounter procedure 02/21/2025 8:45 AM EDT Office Visit [facility] [address] [place] [id number] 3 mo F/U-IVIG [facility] Comment on above: 3 mo F/U-IVIG Start: 02-14-2025 End: 02-14-2025 Patient encounter procedure 02/14/2025 3:20 PM EDT Office Visit [facility] [address] [place] [id number] Bernabe English MD [address] [place] [address] Arrived [facility] Comment on above: Arrived Start: 02-08-2025 End: 02-08-2025 ambulatory 02/08/2025 2:00 PM EDT [facility] Hematology/Oncology [address] [place] [address] [place] [id number] [facility] - Hematology/Oncology Comment on above: [facility] - Start: 01-31-2025 [facility] Start: 01-24-2025 End: 01-24-2025 ambulatory Hematology/Oncology Comment on above: IVIG q4 weeks IVIG(5hours) q4 week s Start: 01-22-2025 Influenza vaccination [facility] Start: 01-06-2025 End: 10-06-2025 25-hydroxyvitamin D3 [Mass/volume] in Serum or Plasma VITAMIN D 25 HYDROXY Lab Routine Vitamin D deficiency Expected: 01/06/2025 (Approximate), Expires: 10/06/2025 [facility] Comment on above: Expected: 01/06/2025 (Approximate), Expi res: 10/06/2025 Start: 01-06-2025 End: 10-06-2025 BLOOD TB SCREEN BLOOD TB SCREEN Lab Routine Screening-pulmonary TB Expected: 01/06/2025 (Approximate), Expires: 10/06/2025 [facility] Comment on above: Expected: 01/06/2025 (Approximate), Expi res: 10/06/2025 Start: 01-06-2025 End: 10-06-2025 C reactive protein [Mass/volume] in Serum or Plasma C-REACTIVE PROTEIN Lab Routine Elevated sed rate Elevated C-reactive protein (CRP) Expected: 01/06/2025 (Approximate), Expires: 10/06/2025 [facility] Comment on above: Expected: 01/06/2025 (Approximate), Expi res: 10/06/2025 Start: 01-06-2025 End: 10-06-2025 CBC panel - Blood by Automated count COMPLETE BLOOD COUNT Lab Routine Anemia of chronic disease Expected: 01/06/2025 (Approximate), Expires: 10/06/2025 [facility] Comment on above: Expected: 01/06/2025 (Approximate), Expi res: 10/06/2025 Start: 01-06-2025 End: 10-06-2025 Chronic hepatitis differentiation between hepatitis B and C virus panel - Serum or Plasma HEP REMOTE PANEL BL Lab Routine Elevated LFTs Expected: 01/06/2025 (Approximate), Expires: 10/06/2025 [facility] Comment on above: Expected: 01/06/2025 (Approximate), Expi res: 10/06/2025 Start: 01-06-2025 End: 10-06-2025 Cobalamin (Vitamin B12) [Mass/volume] in Serum or Plasma VITAMIN B12 Lab Routine Vitamin B12 deficiency Expected: 01/06/2025 (Approximate), Expires: 10/06/2025 [facility] Comment on above: Expected: 01/06/2025 (Approximate), Expi res: 10/06/2025 Start: 01-06-2025 End: 10-06-2025 Comprehensive metabolic 2000 panel - Serum or Plasma COMPREHENSIVE METABOLIC PANEL Lab Routine Elevated LFTs Expected: 01/06/2025 (Approximate), Expires: 10/06/2025 [facility] Work Phone: Comment on above: Expected: 01/06/2025 (Approximate), Expi res: 10/06/2025 Start: 01-06-2025 End: 10-06-2025 Erythrocyte sedimentation rate SEDIMENTATION RATE, WESTERGREN Lab Routine Elevated sed rate Elevated C-reactive protein (CRP) Expected: 01/06/2025 (Approximate), Expires: 10/06/2025 [facility] Comment on above: Expected: 01/06/2025 (Approximate), Expi res: 10/06/2025 Start: 12-27-2024 End: 12-27-2024 ambulatory 12/27/2024 9:00 AM EDT [facility]fusion [facility] Hematology/Oncology [address] [place] [address] [place] [id number] IVIG q4 weeks Hematology/Oncology Comment on above: IVIG q4 weeks Start: 12-14-2024 End: 12-14-2024 ambulatory 12/14/2024 2:00 PM EDT Infusion Center Hematology/Oncology [address] [place] [address] [place] [id number] [facility] - Hematology/Oncology Comment on above: [facility] - Start: 11-29-2024 End: 11-29-2024 ambulatory Hematology/Oncology Comment on above: 3 mo F/U-IVIG(slow infusion per pt reque st/B12 +/-IV iron lab Start: 11-29-2024 End: 11-29-2024 Patient encounter procedure 11/29/2024 8:45 AM EDT Office Visit [facility] [address] [place] [address] [place] [id number] 3 mo F/U-IVIG(slow infusion per pt request/B12 +/-IV iron lab [facility] Comment on above: 3 mo F/U-IVIG(slow infusion per pt reque st/B12 +/-IV iron lab Start: 11-20-2024 End: 02-19-2025 CBC W Auto Differential panel - Blood COMPLETE BLOOD COUNT AND DIFFERENTIAL Lab Routine Hypogammaglobulinemia (HCC) Expected: 11/20/2024, Expires: 02/19/2025 [facility] Work Phone: Comment on above: Expected: 11/20/2024, Expires: Start: 11-20-2024 End: 02-19-2025 Cobalamin (Vitamin B12) [Mass/volume] in Serum or Plasma VITAMIN B12 Lab Routine Hypogammaglobulinemia (HCC) Expected: 11/20/2024, Expires: 02/19/2025 [facility] Comment on above: Expected: 11/20/2024, Expires: Start: 11-20-2024 End: 02-19-2025 Comprehensive metabolic 2000 panel - Serum or Plasma COMPREHENSIVE METABOLIC PANEL Lab Routine Hypogammaglobulinemia (HCC) Expected: 11/20/2024, Expires: 02/19/2025 [facility] Comment on above: Expected: 11/20/2024, Expires: Start: 11-20-2024 End: 02-19-2025 Ferritin [Mass/volume] in Serum or Plasma FERRITIN Lab Routine Hypogammaglobulinemia (HCC) Expected: 11/20/2024, Expires: 02/19/2025 [facility] Comment on above: Expected: 11/20/2024, Expires: Start: 11-20-2024 End: 02-19-2025 Folate [Mass/volume] in Serum or Plasma FOLATE, SERUM Lab Routine Hypogammaglobulinemia (HCC) Expected: 11/20/2024, Expires: 02/19/2025 [facility] Comment on above: Expected: 11/20/2024, Expires: Start: 11-20-2024 End: 02-19-2025 IMMUNOGLOBULINS,IGG,IGA,IG M IMMUNOGLOBULINS,IGG,IGA,IG M Lab Routine Hypogammaglobulinemia (HCC) Expected: 11/20/2024, Expires: 02/19/2025 [facility] Comment on above: Expected: 11/20/2024, Expires: Start: 11-20-2024 Influenza vaccination Influenza Vaccine (#1) [facility] Comment on above: Postponed from 01/23/2024 (Patient Refus ed) Start: 11-20-2024 End: 02-19-2025 Iron and Iron binding capacity panel - Serum or Plasma IRON AND TIBC Lab Routine Hypogammaglobulinemia (HCC) Expected: 11/20/2024, Expires: 02/19/2025 [facility] Comment on above: Expected: 11/20/2024, Expires: Start: 11-16-2024 End: 11-16-2024 ambulatory 11/16/2024 2:00 PM EDT Infusion Center Hematology/Oncology [address] [place] [id number] [facility] - Hematology/Oncology Comment on above: [facility] - Start: 11-01-2024 End: 11-01-2024 ambulatory 11/01/2024 9:00 AM EDT Infusion Center Hematology/Oncology [address] [place] [id number] IVIG q 4 weeks with B 12 inj and lab Hematology/Oncology Comment on above: IVIG q 4 weeks with B 12 inj and lab Start: 10-31-2024 End: 10-31-2024 ambulatory 10/31/2024 9:00 AM EDT Infusion Center Hematology/Oncology [address] [place] [id number] IVIG q 4 weeks with B 12 inj and lab Hematology/Oncology Comment on above: IVIG q 4 weeks with B 12 inj and lab Start: 10-19-2024 End: 10-19-2024 ambulatory 10/19/2024 2:00 PM EDT Infusion Center Hematology/Oncology [address] [place] [id number] B[facility] - IVIG AND B[facility]STA AT LEAST 1 DAY APART FOR FUTURE APPTS Hematology/Oncology Comment on above: [facility] - IVIG AND [facility] AT LEAST 1 DAY APART FOR FUTURE APPTS Start: 10-18-2024 End: 10-18-2024 Specialty Pharmacy 10/18/2024 10:00 AM EDT Specialty Pharmacy [id number] [place] [id number] Pharmacist, [facility] [address] [place] [address] [place] [id number] REFILL- Benlysta- PAx 02/11/25- - mult call attempts [facility] Comment on above: REFILL- Benlysta- PAx 02/11/25- - mult call attempts Start: 10-07-2024 End: 10-07-2024 Follow-up encounter 10/07/2024 8:00 AM EDT [facility] Rheumatology [id number] [place] [address] Lynne Ni MD [address] [facility] [place] [address] follow up visit Rheumatology Comment on above: follow up visit Start: 10-06-2024 End: 07-09-2025 25-hydroxyvitamin D3 [Mass/volume] in Serum or Plasma VITAMIN D 25 HYDROXY Lab Routine Vitamin D deficiency Expected: 10/06/2024 (Approximate), Expires: 07/09/2025 [facility] Comment on above: Expected: 10/06/2024 (Approximate), Expi res: 07/09/2025 Start: 10-06-2024 End: 07-09-2025 C reactive protein [Mass/volume] in Serum or Plasma C-REACTIVE PROTEIN Lab Routine Elevated sed rate Elevated C-reactive protein (CRP) Expected: 10/06/2024 (Approximate), Expires: 07/09/2025 [facility] Comment on above: Expected: 10/06/2024 (Approximate), Expi res: 07/09/2025 Start: 10-06-2024 End: 07-09-2025 CBC panel - Blood by Automated count COMPLETE BLOOD COUNT Lab Routine Anemia of chronic disease Expected: 10/06/2024 (Approximate), Expires: 07/09/2025 [facility] Comment on above: Expected: 10/06/2024 (Approximate), Expi res: 07/09/2025 Start: 10-06-2024 End: 07-09-2025 Comprehensive metabolic 2000 panel - Serum or Plasma COMPREHENSIVE METABOLIC PANEL Lab Routine Elevated LFTs Expected: 10/06/2024 (Approximate), Expires: 07/09/2025 [facility] Work Phone: Comment on above: Expected: 10/06/2024 (Approximate), Expi res: 07/09/2025 Start: 10-06-2024 End: 07-09-2025 Erythrocyte sedimentation rate SEDIMENTATION RATE, WESTERGREN Lab Routine Elevated sed rate Elevated C-reactive protein (CRP) Expected: 10/06/2024 (Approximate), Expires: 07/09/2025 [facility] Comment on above: Expected: 10/06/2024 [...] 10/02/2024 9:00 AM EDT Infusion Center Hematology/Oncology [address] [place] [address] [place] [address] IVIG q 4 weeks with B 12 inj and lab Hematology/Oncology Comment on above: IVIG q 4 weeks with B 12 inj and lab Start: 09-28-2024 End: 09-28-2024 Specialty Pharmacy 09/28/2024 10:00 AM EDT Specialty Pharmacy [facility] [address] [place] [address] Pharmacist, [facility] [address] [place] [address] [place] [address] REFILL- Benlysta- PAx 02/11/25- - LVM 09/20, 09/25 [facility] Comment on above: REFILL- Benlysta- PAx 02/11/25- thursdays - LVM 09/20, 09/25 Start: 09-25-2024 End: 09-25-2024 Specialty Pharmacy 09/25/2024 10:15 AM EDT Specialty Pharmacy [facility] [address] [place], [place] [id number] Pharmacist, [facility] [address] [place] [address] [address] [place] [id number] REFILL- Benlysta- PAx 02/11/25- thurs - LVM 09/20 [facility] Comment on above: REFILL- Benlysta- PAx 02/11/25 - LVM 09/20 Start: 09-20-2024 End: 09-20-2024 Specialty Pharmacy 09/20/2024 10:15 AM EDT Specialty Pharmacy [facility] [address] [place] [address] [id number] [place] [address] Pharmacist, [facility] [address] [place] [address] [place] [address] REFILL- Benlysta- PAx 02/11/25- - pend new [...] 9:30 AM EDT Infusion Center Hematology/Oncology [address] [facility] [place] [address] 3 mo F/U-IVIG(slow infusion per pt request/B12 +/-IV iron Hematology/Oncology Comment on above: 3 mo F/U-IVIG(slow infusion per pt reque st/B12 +/-IV iron Start: 09-06-2024 End: 09-06-2024 Follow-up encounter Hematology/Oncology Comment on above: 3 month follow up IVIG for hypogammaglob ulinemia + b12 Start: 09-06-2024 End: 09-06-2024 Patient encounter procedure 09/06/2024 8:45 AM EDT Office Visit [facility] [address] [place] [address] 3 month follow up IVIG for hypogammaglobulinemia + b12 [facility] Comment on above: 3 month follow up IVIG for hypogammaglob ulinemia + b12 Start: 09-05-2024 End: 09-05-2024 Follow-up encounter Hematology/Oncology Comment on above: 3 month follow up IVIG for hypogammaglob ulinemia + b12 Start: 09-05-2024 End: 09-05-2024 Patient encounter procedure 09/05/2024 8:45 AM EDT Office Visit [facility] [address] [facility] [place] [address] 3 month follow up IVIG for hypogammaglobulinemia + b12 [facility] Comment on above: 3 month follow up IVIG for hypogammaglob ulinemia + b12 Start: 09-04-2024 End: 09-04-2024 Patient encounter procedure 09/04/2024 3:20 PM EDT Office Visit MABLE SANTO [address] [facility] [address] [place] [phone] Gordo Barfield MD [address] [facility] 130 [place] [address] Arrived [facility] Comment on above: Arrived Start: 08-28-2024 End: 11-27-2024 CBC W Auto Differential panel - Blood COMPLETE BLOOD COUNT AND DIFFERENTIAL Lab Routine Vitamin B12 deficiency Other iron deficiency anemia Hypogammaglobulinemia (HCC) Expected: 08/28/2024, Expires: 11/27/2024 [facility] Work Phone: Comment on above: Expected: 08/28/2024, Expires: Start: 08-28-2024 End: 11-27-2024 Cobalamin (Vitamin B12) [Mass/volume] in Serum or Plasma VITAMIN B12 Lab Routine Vitamin B12 deficiency Other iron deficiency anemia Hypogammaglobulinemia (HCC) Expected: 08/28/2024, Expires: 11/27/2024 [facility] Comment on above: Expected: 08/28/2024, Expires: Start: 08-28-2024 End: 11-27-2024 Comprehensive metabolic 2000 panel - Serum or Plasma COMPREHENSIVE METABOLIC PANEL Lab Routine Vitamin B12 deficiency Other iron deficiency anemia Hypogammaglobulinemia (HCC) Expected: 08/28/2024, Expires: 11/27/2024 [facility] Comment on above: Expected: 08/28/2024, Expires: Start: 08-28-2024 End: 11-27-2024 Ferritin [Mass/volume] in Serum or Plasma FERRITIN Lab Routine Vitamin B12 deficiency Other iron deficiency anemia Hypogammaglobulinemia (HCC) Expected: 08/28/2024, Expires: 11/27/2024 [facility] Comment on above: Expected: 08/28/2024, Expires: Start: 08-28-2024 End: 11-27-2024 Folate [Mass/volume] in Serum or Plasma FOLATE, SERUM Lab Routine Vitamin B12 deficiency Other iron deficiency anemia Hypogammaglobulinemia (HCC) Expected: 08/28/2024, Expires: 11/27/2024 [facility] Comment on above: Expected: 08/28/2024, Expires: Start: 08-28-2024 End: 11-27-2024 IgG [Mass/volume] in Serum or Plasma IMMUNOGLOBULIN G Lab Routine Vitamin B12 deficiency Other iron deficiency anemia Hypogammaglobulinemia (HCC) Expected: 08/28/2024, Expires: 11/27/2024 [facility] Comment on above: Expected: 08/28/2024, Expires: Start: 08-28-2024 End: 11-27-2024 Iron and Iron binding capacity panel - Serum or Plasma IRON AND TIBC Lab Routine Vitamin B12 deficiency Other iron deficiency anemia Hypogammaglobulinemia (HCC) Expected: 08/28/2024, Expires: 11/27/2024 [facility] Comment on above: Expected: 08/28/2024, Expires: Start: 08-22-2024 End: 08-22-2024 Patient encounter procedure 08/22/2024 1:30 PM EDT Office Visit [facility] [address] [place] [id number] Raj Kitchen MD [address] [place] [id number] [facility] Start: 08-22-2024 End: 08-22-2024 Specialty Pharmacy 08/22/2024 10:15 AM EDT Specialty Pharmacy [facility] [address] [place], [place] [id number] Pharmacist, [facility] [address] [place] [address] [place] [address] REFILL- Benlysta- PAx 02/11/25 [facility] 08/17 [facility] Comment on above: REFILL- Benlysta- PAx 02/11/25 [facility] 08/17 Start: 08-17-2024 End: 08-17-2024 Specialty Pharmacy 08/17/2024 10:00 AM EDT Specialty Pharmacy [facility] [address] [place] [address] Pharmacist, [facility] [address] [place] [address] [place] [address] REFILL- Benlysta- PAx 02/11/25 [facility] Comment on above: REFILL- Benlysta- PAx 02/11/25 Start: 08-15-2024 End: 08-15-2024 Patient encounter procedure 08/15/2024 10:20 AM EDT Office Visit [facility] [address] [facility] [address] [place] [address] Gordo Barfield MD [address] [facility] [address] [place] [address] [facility] Start: 08-08-2024 End: 08-08-2024 ambulatory 08/08/2024 9:30 AM EDT Infusion Center Hematology/Oncology [address] [place] [address] [place] [address] IVIG for hypogammaglobulinemia + b12 Hematology/Oncology Comment on above: IVIG for hypogammaglobulinemia + b12 Start: 08-01-2024 End: 08-01-2024 Patient encounter procedure 08/01/2024 10:30 AM EDT Office Visit [facility] [address] [place] [phone] Bernabe English MD [address] [place] [address] [facility] Start: 07-25-2024 End: 07-25-2024 Specialty Pharmacy [facility] Comment on above: REFILL- Benlysta- PAx 02/11/25- Arrived Start: 07-20-2024 End: 07-20-2024 ambulatory 07/20/2024 11:30 AM EST [facility] Infectious Disease [address] [place] [address] Alhaji Head DO [address] [place] [address] Positive blood cultures [R78.81] Infectious Disease Comment on above: Positive blood cultures [R78.81] Start: 07-20-2024 End: 07-20-2024 Patient encounter procedure 07/20/2024 11:30 AM EST Office Visit Infectious Disease [address] [place] [address] Alhaji Head DO [address] [place] [address] Positive blood cultures [R78.81] Infectious Disease Comment on above: Positive blood cultures [R78.81] Start: 07-19-2024 [facility] Start: 07-13-2024 End: 07-13-2024 Patient encounter procedure 07/13/2024 9:20 AM EST Office Visit [place] [address] [facility] [address] [place] [phone] Lois Holm MD 703 [facility] [address] [place] [address] [facility] Start: 07-12-2024 End: 07-12-2024 Patient encounter procedure 07/12/2024 2:40 PM EST Office Visit Otolaryngology [address] [place] [address] Marky Barnes PA-C [address] [place], [place] [id number] Recurrent Thrush. Otolaryngology Comment on above: Recurrent Thrush. Start: 07-11-2024 End: 07-11-2024 ambulatory 07/11/2024 9:30 AM EST Infusion Center Hematology/Oncology [address] [place] [address] [place] [address] IVIG for hypogammaglobulinemia + b12 Hematology/Oncology Comment on above: IVIG for hypogammaglobulinemia + b12 Start: 07-03-2024 End: 04-02-2025 25-hydroxyvitamin D3 [Mass/volume] in Serum or Plasma VITAMIN D 25 HYDROXY Lab Routine Vitamin D deficiency Expected: 07/03/2024 (Approximate), Expires: 04/02/2025 [facility] Comment on above: Expected: 07/03/2024 (Approximate), Expi res: 04/02/2025 Start: 07-03-2024 End: 04-02-2025 C reactive protein [Mass/volume] in Serum or Plasma C-REACTIVE PROTEIN Lab Routine Elevated sed rate Elevated C-reactive protein (CRP) Expected: 07/03/2024 (Approximate), Expires: 04/02/2025 [facility] Comment on above: Expected: 07/03/2024 (Approximate), Expi res: 04/02/2025 Start: 07-03-2024 End: 04-02-2025 CBC panel - Blood by Automated count COMPLETE BLOOD COUNT Lab Routine Anemia of chronic disease Expected: 07/03/2024 (Approximate), Expires: 04/02/2025 [facility] Comment on above: Expected: 07/03/2024 (Approximate), Expi res: 04/02/2025 Start: 07-03-2024 End: 04-02-2025 Comprehensive metabolic 2000 panel - Serum or Plasma COMPREHENSIVE METABOLIC PANEL Lab Routine Elevated LFTs Expected: 07/03/2024 (Approximate), Expires: 04/02/2025 [facility] Work Phone: Comment on above: Expected: 07/03/2024 (Approximate), Expi res: 04/02/2025 Start: 07-03-2024 End: 04-02-2025 Erythrocyte sedimentation rate SEDIMENTATION RATE, WESTERGREN Lab Routine Elevated sed rate Elevated C-reactive protein (CRP) Expected: 07/03/2024 (Approximate), Expires: 04/02/2025 [facility] Comment on above: Expected: 07/03/2024 (Approximate), Expi res: 04/02/2025 Start: 06-29-2024 End: 06-29-2024 Specialty Pharmacy 06/29/2024 10:00 AM EST Specialty Pharmacy [facility] [id number] [place] [address] Pharmacist, [facility] [address] [place] [address] [place] [id number] REFILL- Benlysta- PAx 02/11/25 [facility] Comment on above: REFILL- Benlysta- PAx 02/11/25 Start: 06-26-2024 End: 06-26-2024 Nursing evaluation of patient and report 06/26/2024 9:45 AM EST Nurse Visit Hematology/Oncology [address] [facility] [place] [address] Cele Marshall Nurse Dre [address] [facility] [place] [address] B12 Hematology/Oncology Comment on above: B12 Start: 06-26-2024 End: 06-26-2024 ambulatory Hematology/Oncology Comment on above: RTC 3 month IVIG for hypogammagl obulinemia Start: 06-26-2024 End: 06-26-2024 Patient encounter procedure 06/26/2024 8:45 AM EST Office Visit [facility] [address] [facility] [place] [address] labs [facility] Comment on above: labs Start: 06-14-2024 End: 06-14-2024 Nursing evaluation of patient and report [facility] Comment on above: Abdominal Pain/Diarrhea/[employer] order ed/Patient has prep thru MyChart//cc SIBO - Abdominal Gus n/Diarrhea/[employer] ordered/Patient has prep thru MyChart//cc Order in Scanned Documents Start: 06-13-2024 End: 09-12-2024 Cobalamin (Vitamin B12) [Mass/volume] in Serum or Plasma [facility] Comment on above: Expected: 06/13/2024, Expires: Start: 06-13-2024 End: 09-12-2024 Ferritin [Mass/volume] in Serum or Plasma [facility] Work Phone: Comment on above: Expected: 06/13/2024, Expires: Start: 06-13-2024 End: 09-12-2024 Folate [Mass/volume] in Serum or Plasma [facility] Comment on above: Expected: 06/13/2024, Expires: Start: 06-13-2024 End: 09-12-2024 Iron and Iron binding capacity panel - Serum or Plasma [facility] Comment on above: Expected: 06/13/2024, Expires: Start: 06-13-2024 End: 06-13-2024 Nursing evaluation of patient and report 06/13/2024 9:45 AM EST Nurse Visit Hematology/Oncology [address] [facility] [place] [address] Cele Marshall Nurse Dre [address] [facility] [place] [address] B12 Hematology/Oncology Comment on above: B12 Start: 06-13-2024 End: 06-13-2024 ambulatory Hematology/Oncology Comment on above: RTC 3 month IVIG for hypogammagl obulinemia Start: 06-13-2024 End: 06-13-2024 Patient encounter procedure 06/13/2024 8:45 AM EST Office Visit [facility] [address] [facility] [place] [address] labs [facility] Comment on above: labs [...] 05/29/2024 9:30 AM EST Nurse Visit Hematology/Oncology [address] [place] [address] [place] [address] Joanna Wa Nurse Dre [address] [facility] [place] [address] B12 Hematology/Oncology Comment on above: B12 Start: 05-19-2024 End: 05-19-2024 ambulatory 05/19/2024 9:30 AM EST Infusion Center Hematology/Oncology [address] [place] [address] [place] [address] IVIG for hypogammaglobulinemia Hematology/Oncology Comment on above: IVIG for hypogammaglobulinemia Start: 05-12-2024 End: 05-12-2024 Specialty Pharmacy 05/12/2024 10:00 AM EST Specialty Pharmacy [facility] [address] [place], [place] [id number] [place] [address] Pharmacist, [facility] [address] [place] [address] [address] [place], [place] [id number] REFILL- Benlysta- PAx 02/11/25 [facility] Comment on above: REFILL- Benlysta- PAx 02/11/25 Start: 04-28-2024 End: 04-28-2025 US.doppler Extremity arteries - bilateral for physiologic artery study Vas art doppler lwr bilat mult lev/PVR Vascular Ultrasound Routine Peripheral vascular disease, unspecified ([facility]) Cold extremities Systemic lupus erythematosus ([facility]) Expected: 04/28/2024, Expires: 04/28/2025 [facility] Work Phone: Comment on above: Expected: 04/28/2024, Expires: Start: 04-24-2024 End: 04-24-2024 Nursing evaluation of patient and report 04/24/2024 9:30 AM EST Nurse Visit Hematology/Oncology [address] [facility] [place] [address] Joanna Wa Nurse Dre [address] [facility] [place] [address] B12 Hematology/Oncology Comment on above: B12 Start: 04-18-2024 End: 04-18-2024 Nursing evaluation of patient and report [facility] Comment on above: [...] lower extremity, unspecified laterality Systemic lupus erythematosus ([facility]) Expected: 04/06/2024, Expires: 2025 [facility] Work Phone: Comment on above: Expected: 04/06/2024, Expires: Start: 03-28-2024 End: 03-28-2024 ambulatory 03/28/2024 1:00 PM EST [facility] Hematology/Oncology [address] [facility] [place] [address] Vera Najera MD [address] [facility] [place] [address] 13 wk virtual after labs last week Hematology/Oncology Comment on above: 13 wk virtual after labs last week Start: 03-23-2024 End: 03-23-2025 aPTT in Blood by Coagulation assay APTT Lab Routine Menorrhagia with regular cycle Expected: 03/23/2024 (Approximate), Expires: 03/23/2025 [facility] Comment on above: Expected: 03/23/2024 (Approximate), Expi res: 03/23/2025 Start: 03-23-2024 End: 03-23-2025 US for US PELVIS-TRANSVAG IF INDICATED Imaging Routine Menorrhagia with regular cycle Expected: 03/23/2024 (Approximate), Expires: 03/23/2025 [facility] Comment on above: Expected: 03/23/2024 (Approximate), Expi res: 03/23/2025 Start: 03-21-2024 End: 03-21-2024 Nursing evaluation of patient and report 03/21/2024 11:45 AM EDT Nurse Visit Hematology/Oncology [address] [facility] [place] [address] Cele Marshall Nurse Dre [address] [facility] [place] [address] b12 Hematology/Oncology Comment on above: b12 Start: 03-21-2024 End: 03-21-2024 Patient encounter procedure 03/21/2024 11:15 AM EDT Office Visit [facility] [address] [facility] [place] [address] LAb [facility] Comment on above: LAb Start: 03-20-2024 End: 12-29-2024 25-hydroxyvitamin D3 [Mass/volume] in Serum or Plasma VITAMIN D 25 HYDROXY Lab Routine Vitamin D deficiency Expected: 03/20/2024 (Approximate), Expires: 12/29/2024 [facility] Comment on above: Expected: 03/20/2024 (Approximate), Expi res: 12/29/2024 Start: 03-20-2024 End: 12-29-2024 BLOOD TB SCREEN BLOOD TB SCREEN Lab Routine Screening-pulmonary TB Expected: 03/20/2024 (Approximate), Expires: 12/29/2024 [facility] Comment on above: Expected: 03/20/2024 (Approximate), Expi res: 12/29/2024 Start: 03-20-2024 End: 12-29-2024 C reactive protein [Mass/volume] in Serum or Plasma C-REACTIVE PROTEIN Lab Routine Elevated C-reactive protein (CRP) Elevated sed rate Expected: 03/20/2024 (Approximate), Expires: 12/29/2024 [facility] Comment on above: Expected: 03/20/2024 (Approximate), Expi res: 12/29/2024 Start: 03-20-2024 End: 06-19-2024 CBC W Auto Differential panel - Blood COMPLETE BLOOD COUNT AND DIFFERENTIAL Lab Routine Megaloblastic anemia due to vitamin B12 deficiency Elevated sed rate Obstructive sleep apnea syndrome Expected: 03/20/2024 (Approximate), Expires: 06/19/2024 [facility] Comment on above: Expected: 03/20/2024 (Approximate), Expi res: 06/19/2024 Start: 03-20-2024 End: 06-19-2024 Cobalamin (Vitamin B12) [Mass/volume] in Serum or Plasma VITAMIN B12 Lab Routine Megaloblastic anemia due to vitamin B12 deficiency Elevated sed rate Obstructive sleep apnea syndrome Expected: 03/20/2024 (Approximate), Expires: 06/19/2024 [facility] Comment on above: Expected: 03/20/2024 (Approximate), Expi res: 06/19/2024 Start: 03-20-2024 End: 06-19-2024 Comprehensive metabolic 2000 panel - Serum or Plasma COMPREHENSIVE METABOLIC PANEL Lab Routine Megaloblastic anemia due to vitamin B12 deficiency Elevated sed rate Obstructive sleep apnea syndrome Expected: 03/20/2024 (Approximate), Expires: 06/19/2024 [facility] Work Phone: Comment on above: Expected: 03/20/2024 (Approximate), Expi res: 06/19/2024 Start: 03-20-2024 End: 12-29-2024 Erythrocyte sedimentation rate SEDIMENTATION RATE, WESTERGREN Lab Routine Elevated C-reactive protein (CRP) Elevated sed rate Expected: 03/20/2024 (Approximate), Expires: 12/29/2024 [facility] Work Phone: Comment on above: Expected: 03/20/2024 (Approximate), Expi res: 12/29/2024 Start: 03-20-2024 End: 06-19-2024 Ferritin [Mass/volume] in Serum or Plasma FERRITIN Lab Routine Megaloblastic anemia due to vitamin B12 deficiency Elevated sed rate Obstructive sleep apnea syndrome Expected: 03/20/2024 (Approximate), Expires: 06/19/2024 [facility] Comment on above: Expected: 03/20/2024 (Approximate), Expi res: 06/19/2024 Start: 03-20-2024 End: 06-19-2024 Folate [Mass/volume] in Serum or Plasma FOLATE, SERUM Lab Routine Megaloblastic anemia due to vitamin B12 deficiency Elevated sed rate Obstructive sleep apnea syndrome Expected: 03/20/2024 (Approximate), Expires: 06/19/2024 [facility] Comment on above: Expected: 03/20/2024 (Approximate), Expi res: 06/19/2024 Start: 03-20-2024 End: 06-19-2024 IMMUNOGLOBULINS,IGG,IGA,IG M IMMUNOGLOBULINS,IGG,IGA,IG M Lab Routine Megaloblastic anemia due to vitamin B12 deficiency Elevated sed rate Obstructive sleep apnea syndrome Expected: 03/20/2024 (Approximate), Expires: 06/19/2024 [facility] Comment on above: Expected: 03/20/2024 (Approximate), Expi res: 06/19/2024 Start: 03-20-2024 End: 06-19-2024 Iron and Iron binding capacity panel - Serum or Plasma IRON AND TIBC Lab Routine Megaloblastic anemia due to vitamin B12 deficiency Elevated sed rate Obstructive sleep apnea syndrome Expected: 03/20/2024 (Approximate), Expires: 06/19/2024 [facility] Comment on above: Expected: 03/20/2024 (Approximate), Expi res: 06/19/2024 Start: 03-18-2024 End: 03-18-2024 Patient encounter procedure 03/18/2024 9:00 AM EDT [facility] Rheumatology [address] [place] [address] Lynne Ni MD [address] [facility] [address] [place] [address] May offer 03/18/24 Sat REJ 4th floor in person/virtual/phone for lupus Rheumatology Comment on above: May offer 03/18/24 Sat REJ 4th floor in person/virtual/phone for lupus Start: 03-16-2024 Patient referral [facility] Work Phone: Start: 03-16-2024 End: 05-16-2025 US Breast - bilateral Bilateral breast US complete Imaging Routine Nipple discharge Expected: 03/16/2024, Expires: 05/16/2025 [facility] Work Phone: Comment on above: Expected: [...] 11:45 AM EDT Nurse Visit Hematology/Oncology [address] [facility] [place] [address] Cele Marshall Nurse Dre [address] [place] [address] b12 Hematology/Oncology Comment on above: b12 Start: 02-22-2024 End: 02-22-2024 Patient encounter procedure 02/22/2024 11:15 AM EDT Office Visit [facility] [address] [place] [address] LAb [facility] Comment on above: LAb Start: 02-21-2024 End: 02-21-2024 Nursing evaluation of patient and report 02/21/2024 10:45 AM EDT Nurse Visit Hematology/Oncology [address] [place] [address] Cele Marshall Nurse Dre [address] [facility] [place] [address] b12 Hematology/Oncology Comment on above: b12 Start: 02-21-2024 End: 02-21-2024 Patient encounter procedure 02/21/2024 10:30 AM EDT Office Visit [facility] [address] [place] [address] LAb [facility] Comment on above: LAb Start: 02-16-2024 [facility] Start: 02-14-2024 End: 02-14-2024 Follow-up encounter Neurology Comment on above: Cpap follow up REFILL- Benlysta- PA x 02/04/24- NCA 09/2024-, ND 02/23 Start: 02-09-2024 End: 02-09-2024 Patient encounter procedure 02/09/2024 8:00 AM EDT Office Visit [facility] NE[facility] [address] [place] [phone] Zita Cuellar, GEROPSYCHOLOGIST [address] [place] [address] [facility] 210 Start: 01-27-2024 End: 04-27-2024 Bacteria identified in Blood by Culture BLOOD CULTURE Microbiology Routine Pseudomonas infection Expected: 01/27/2024, Expires: 04/27/2024 [facility] Work Phone: Comment on above: Expected: 01/27/2024, Expires: Start: 01-27-2024 End: 01-27-2024 Follow-up encounter 01/27/2024 10:00 AM EDT [facility] Infectious Disease [address] [place] [address] Alhaji Head DO [address] [place] [address] follow up Infectious Disease Comment on above: follow up Start: 01-25-2024 End: 01-25-2024 Nursing evaluation of patient and report Hematology/Oncology Comment on above: b12 B12(change date) Start: 01-25-2024 End: 01-25-2024 Patient encounter procedure [facility] Comment on above: LAb NO LAB ORDERS LAb Start: 01-24-2024 Influenza vaccination Influenza Vaccine (#1) [facility] Comment on above: Postponed from 01/22/2023 (Patient Refus ed) Start: 01-23-2024 Covid-19 Vaccine ( season) Covid-19 Vaccine ( season) [facility] Start: 01-23-2024 Covid-19 Vaccine ( season) Covid-19 Vaccine ( season) [facility] Start: 01-23-2024 Influenza vaccination [facility] Start: 01-20-2024 End: 01-20-2024 Specialty Pharmacy [facility] Comment on above: refill - benlysta- NCA 09/2024-- pa exp: 02/04/24- 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 Start: 12-27-2023 End: 12-27-2023 Nursing evaluation of patient and report 12/27/2023 12:00 PM EDT Nurse Visit Hematology/Oncology [address] [place] [address] Cele Marshall Nurse Dre [address] [facility] [place] [address] b12 Hematology/Oncology Comment on above: b12 Start: 12-27-2023 End: 12-27-2023 Follow-up encounter 12/27/2023 11:30 AM EDT Visit (SP) Office Hematology/Oncology [address] [place] [address] Neda Hill, PA-C [address] [facility] [place] [address] 13 week follow up, labs 1 week before Hematology/Oncology Comment on above: 13 week follow up, labs 1 week before Start: 12-27-2023 End: 12-27-2023 Patient encounter procedure 12/27/2023 11:15 AM EDT Office Visit [facility] [address] [place] [address] LAb [facility] Comment on above: LAb Start: 12-13-2023 End: 12-13-2023 Specialty Pharmacy 12/13/2023 10:00 AM EDT Specialty Pharmacy [id number] [place] [address] Pharmacist, [facility] [address] [place] [address] [place] [address] refill - benlysta- NCA - pa exp: 02/04/24- [facility] Comment on above: refill - benlysta- NCA - pa exp: 02/04/24- Start: 12-10-2023 End: 12-10-2023 Follow-up encounter 12/10/2023 10:45 AM EDT Visit (SP) Office Hematology/Oncology [address] [facility] [place] [address] Vera Najera MD [address] [facility] [place] [address] 13 week follow up, labs 1 week before Hematology/Oncology Comment on above: 13 week follow up, labs 1 week before Start: 12-04-2023 End: 09-03-2024 25-hydroxyvitamin D3 [Mass/volume] in Serum or Plasma VITAMIN D 25 HYDROXY Lab Routine Vitamin D deficiency Expected: 12/04/2023 (Approximate), Expires: 09/03/2024 [facility] Work Phone: Comment on above: Expected: 12/04/2023 (Approximate), Expi res: 09/03/2024 Start: 12-04-2023 End: 09-03-2024 C reactive protein [Mass/volume] in Serum or Plasma C-REACTIVE PROTEIN Lab Routine Elevated sed rate Elevated C-reactive protein (CRP) Expected: 12/04/2023 (Approximate), Expires: 09/03/2024 [facility] Work Phone: Comment on above: Expected: 12/04/2023 (Approximate), Expi res: 09/03/2024 Start: 12-04-2023 End: 09-03-2024 CBC panel - Blood by Automated count COMPLETE BLOOD COUNT Lab Routine Anemia of chronic disease Expected: 12/04/2023 (Approximate), Expires: 09/03/2024 [facility] Work Phone: Comment on above: Expected: 12/04/2023 (Approximate), Expi res: 09/03/2024 Start: 12-04-2023 End: 09-03-2024 Comprehensive metabolic 2000 panel - Serum or Plasma COMPREHENSIVE METABOLIC PANEL Lab Routine Elevated LFTs Expected: 12/04/2023 (Approximate), Expires: 09/03/2024 [facility] Work Phone: Comment on above: Expected: 12/04/2023 (Approximate), Expi res: 09/03/2024 Start: 12-04-2023 End: 09-03-2024 Erythrocyte sedimentation rate SEDIMENTATION RATE, WESTERGREN Lab Routine Elevated sed rate Elevated C-reactive protein (CRP) Expected: 12/04/2023 (Approximate), Expires: 09/03/2024 [facility] Work Phone: Comment on above: Expected: 12/04/2023 (Approximate), Expi res: 09/03/2024 Start: 12-03-2023 End: 12-03-2023 Nursing evaluation of patient and report 12/03/2023 11:00 AM EDT Nurse Visit Hematology/Oncology [address] [facility] [place] [address] Cele Marshall Nurse Dre [address] [facility] [place] [address] b12 Hematology/Oncology Comment on above: b12 Start: 12-03-2023 End: 12-03-2023 Patient encounter procedure 12/03/2023 10:45 AM EDT Office Visit [facility] [address] [place] [address] [place] [address] lab [facility] Comment on above: lab Start: 12-02-2023 End: 09-08-2024 CBC W Auto Differential panel - Blood COMPLETE BLOOD COUNT AND DIFFERENTIAL Lab Routine Megaloblastic anemia due to vitamin B12 deficiency High total serum IgM Expected: 12/02/2023 (Approximate), Expires: 09/08/2024 [facility] Work Phone: Comment on above: Expected: 12/02/2023 (Approximate), Expi res: 09/08/2024 Start: 12-02-2023 End: 09-08-2024 Cobalamin (Vitamin B12) [Mass/volume] in Serum or Plasma VITAMIN B12 Lab Routine Megaloblastic anemia due to vitamin B12 deficiency High total serum IgM Expected: 12/02/2023 (Approximate), Expires: 09/08/2024 [facility] Work Phone: Comment on above: Expected: 12/02/2023 (Approximate), Expi res: 09/08/2024 Start: 12-02-2023 End: 09-08-2024 Comprehensive metabolic 2000 panel - Serum or Plasma COMPREHENSIVE METABOLIC PANEL Lab Routine Megaloblastic anemia due to vitamin B12 deficiency High total serum IgM Expected: 12/02/2023 (Approximate), Expires: 09/08/2024 [facility] Work Phone: Comment on above: Expected: 12/02/2023 (Approximate), Expi res: 09/08/2024 Start: 12-02-2023 End: 03-02-2024 Erythrocyte sedimentation rate SEDIMENTATION RATE, WESTERGREN Lab Routine Megaloblastic anemia due to vitamin B12 deficiency High total serum IgM Expected: 12/02/2023 (Approximate), Expires: 03/02/2024 [facility] Work Phone: Comment on above: Expected: 12/02/2023 (Approximate), Expi res: 03/02/2024 Start: 12-02-2023 End: 09-08-2024 Ferritin [Mass/volume] in Serum or Plasma FERRITIN Lab Routine Megaloblastic anemia due to vitamin B12 deficiency High total serum IgM Expected: 12/02/2023 (Approximate), Expires: 09/08/2024 [facility] Work Phone: Comment on above: Expected: 12/02/2023 (Approximate), Expi res: 09/08/2024 Start: 12-02-2023 End: 09-08-2024 Folate [Mass/volume] in Serum or Plasma FOLATE, SERUM Lab Routine Megaloblastic anemia due to vitamin B12 deficiency High total serum IgM Expected: 12/02/2023 (Approximate), Expires: 09/08/2024 [facility] Work Phone: Comment on above: Expected: 12/02/2023 (Approximate), Expi res: 09/08/2024 Start: 12-02-2023 End: 03-02-2024 IgA [Mass/volume] in Serum or Plasma IMMUNOGLOBULIN A Lab Routine Megaloblastic anemia due to vitamin B12 deficiency High total serum IgM Expected: 12/02/2023 (Approximate), Expires: 03/02/2024 [facility] Work Phone: Comment on above: Expected: 12/02/2023 (Approximate), Expi res: 03/02/2024 Start: 12-02-2023 End: 03-02-2024 IgE [Units/volume] in Serum or Plasma IMMUNOGLOBULIN E Lab Routine Megaloblastic anemia due to vitamin B12 deficiency High total serum IgM Expected: 12/02/2023 (Approximate), Expires: 03/02/2024 [facility] Work Phone: Comment on above: Expected: 12/02/2023 (Approximate), Expi res: 03/02/2024 Start: 12-02-2023 End: 03-02-2024 IgG [Mass/volume] in Serum or Plasma IMMUNOGLOBULIN G Lab Routine Megaloblastic anemia due to vitamin B12 deficiency High total serum IgM Expected: 12/02/2023 (Approximate), Expires: 03/02/2024 [facility] Work Phone: Comment on above: Expected: 12/02/2023 (Approximate), Expi res: 03/02/2024 Start: 12-02-2023 End: 03-02-2024 IgM [Mass/volume] in Serum or Plasma IMMUNOGLOBULIN M Lab Routine Megaloblastic anemia due to vitamin B12 deficiency High total serum IgM Expected: 12/02/2023 (Approximate), Expires: 03/02/2024 [facility] Work Phone: Comment on above: Expected: 12/02/2023 (Approximate), Expi res: 03/02/2024 Start: 12-02-2023 End: 09-08-2024 Iron and Iron binding capacity panel - Serum or Plasma IRON AND TIBC Lab Routine Megaloblastic anemia due to vitamin B12 deficiency High total serum IgM Expected: 12/02/2023 (Approximate), Expires: 09/08/2024 [facility] Work Phone: Comment on above: Expected: 12/02/2023 (Approximate), Expi res: 09/08/2024 Start: 11-29-2023 End: 11-29-2023 Nursing evaluation of patient and report 11/29/2023 2:15 PM EDT Nurse Visit Hematology/Oncology [address] [facility] [place] [address] Cele Marshall Nurse Dre [address] [facility] [place] [address] b12 Hematology/Oncology Comment on above: b12 Start: 11-15-2023 End: 11-15-2023 Specialty Pharmacy 11/15/2023 10:00 AM EDT Specialty Pharmacy [facility] [address] [place] [address] [id number] [place] [address] Pharmacist, [facility] [address] [place] [address] [place] [id number] refill - benlysta- NCA 09/2024-- pa exp: 02/04/24- [facility] Comment on above: refill - benlysta- NCA 09/2024-- pa exp: 02/04/24- Start: 10-29-2023 End: 10-29-2023 Nursing evaluation of patient and report 10/29/2023 11:00 AM EDT Nurse Visit Hematology/Oncology [address] [facility] [place] [address] Cele Marshall Nurse Dre [address] [facility] [place] [address] b12 Hematology/Oncology Comment on above: b12 Start: 10-15-2023 End: 10-15-2023 Specialty Pharmacy 10/15/2023 10:00 AM EDT Specialty Pharmacy [facility] [address] [place] [address] Pharmacist, [facility] [address] [place] [address] [address] [place] [id number] refill - benlysta-Thursdays- pa exp: 02/04/24-l/m 10/11 [facility] Comment on above: refill - benlysta-Thursdays- pa exp: 01/22 08/14-l/m 10/11 Start: 10-12-2023 End: 10-12-2023 Specialty Pharmacy 10/12/2023 10:00 AM EDT Specialty Pharmacy [facility] [address] [place], [place] [id number] Pharmacist, [facility] [address] [place] [address] [place] [address] refill - benlysta-Thursdays- pa exp: 02/04/24- [facility] Comment on above: refill - benlysta-Thursdays- pa exp: 01/22 08/14- Start: 10-05-2023 End: 10-05-2023 Patient encounter procedure 10/05/2023 8:00 AM EDT [facility] [address] [place] [address] Lynne Ni MD [address] [place] [address] 6 mo f/u for Lupus Rheumatology Comment on above: 6 mo f/u for Lupus Start: 10-01-2023 End: 10-01-2023 Nursing evaluation of patient and report 10/01/2023 11:00 AM EDT Nurse Visit Hematology/Oncology [address] [facility] [place] [address] Cele Marshall Nurse Dre [address] [facility] [place] [address] b12 Hematology/Oncology Comment on above: b12 Start: 09-16-2023 End: 09-16-2023 Specialty Pharmacy 09/16/2023 10:00 AM EDT Specialty Pharmacy [facility] [facility] [id number] [place] [address] Pharmacist, [facility] [address] [place] [address] DR [place], [place] [id number] refill - benlysta-Thursdays- pa exp: 02/04/24-lvm [facility] Comment on above: refill - benlysta-Thursdays- pa exp: 01/22 08/14-lvm Start: 09-13-2023 End: 09-13-2023 Patient encounter procedure 09/13/2023 9:00 AM EDT Office Visit [facility] [address] [place] [address] Kade Richardson MD [address] [facility] [address] [address] [facility] Start: 07-19-2023 End: 07-19-2023 Patient encounter procedure [facility] [place] [facility] [place] Start: 07-15-2023 End: 07-15-2023 Patient encounter procedure 07/15/2023 10:50 AM EST Office Visit [facility] [address] [place] [address] Bernabe English MD [address] [place] [address] [facility] Start: 07-06-2023 End: 07-06-2023 Patient encounter procedure 07/06/2023 2:30 PM EST Office Visit [facility] [address] [facility] [facility] [address] CHERY [place] [id number] Kade Richardson MD [address] [facility] [address] Cher[place] [address] [facility] 210 Start: 07-06-2023 End: 07-06-2024 Protein electrophoresis, serum Protein electrophoresis, serum Lab Routine Autoimmune disease (CMS/HCC) Autonomic dysfunction Expected: 07/06/2023 (Approximate), Expires: 07/06/2024 [facility] Work Phone: Comment on above: Expected: 07/06/2023 (Approximate), Expi res: 07/06/2024 Start: 07-06-2023 End: 07-06-2024 Protein electrophoresis, urine Protein electrophoresis, urine Lab Routine Autoimmune disease (CMS/HCC) Autonomic dysfunction Expected: 07/06/2023 (Approximate), Expires: 07/06/2024 [facility] Comment on above: Expected: 07/06/2023 (Approximate), Expi res: 07/06/2024 Start: 06-09-2023 End: 06-09-2024 Holter monitor study 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 Or Event 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 Clerk Cardiac Services Routine Irregular heart rate [...] apnea syndrome Expected: 06/09/2023 (Approximate), Expires: 06/09/2025 [facility] Work Phone: Comment on above: Expected: 06/09/2023 (Approximate), Expi res: 06/09/2025 Start: 04-25-2023 End: 01-25-2024 25-hydroxyvitamin D3 [Mass/volume] in Serum or Plasma VITAMIN D 25 HYDROXY Lab Routine Vitamin D deficiency Expected: 04/25/2023 (Approximate), Expires: 01/25/2024 [facility] Work Phone: Comment on above: Expected: 04/25/2023 (Approximate), Expi res: 01/25/2024 Start: 04-25-2023 End: 01-25-2024 C reactive protein [Mass/volume] in Serum or Plasma C-REACTIVE PROTEIN (CRP) Lab Routine Elevated sed rate Elevated C-reactive protein (CRP) Expected: 04/25/2023 (Approximate), Expires: 01/25/2024 [facility] Work Phone: Comment on above: Expected: 04/25/2023 (Approximate), Expi res: 01/25/2024 Start: 04-25-2023 End: 01-25-2024 CBC panel - Blood by Automated count CBC Lab Routine Anemia of chronic disease Expected: 04/25/2023 (Approximate), Expires: 01/25/2024 [facility] Work Phone: Comment on above: Expected: 04/25/2023 (Approximate), Expi res: 01/25/2024 Start: 04-25-2023 End: 01-25-2024 Comprehensive metabolic 2000 panel - Serum or Plasma COMP METABOLIC PANEL Lab Routine Elevated LFTs Expected: 04/25/2023 (Approximate), Expires: 01/25/2024 [facility] Work Phone: Comment on above: Expected: 04/25/2023 (Approximate), Expi res: 01/25/2024 Start: 04-25-2023 End: 01-25-2024 Erythrocyte sedimentation rate SED RATE WESTERGREN Lab Routine Elevated sed rate Elevated C-reactive protein (CRP) Expected: 04/25/2023 (Approximate), Expires: 01/25/2024 [facility] Work Phone: Comment on above: Expected: 04/25/2023 (Approximate), Expi res: 01/25/2024 Start: 04-20-2023 COVID-19 Vaccine (4 - Pfizer risk series) COVID-19 Vaccine (4 - Pfizer risk series) [facility] Start: 04-20-2023 Covid-19 Vaccine ( season) Covid-19 Vaccine () [facility] Start: 04-20-2023 Covid-19 Vaccine ( season) Covid-19 Vaccine ( season) [facility] Start: 04-16-2023 End: 02-20-2024 CBC W Auto Differential panel - Blood CBC + DIFF Lab Routine Megaloblastic anemia due to vitamin B12 deficiency Elevated sed rate Chronic fatigue and malaise High total serum IgM JOSE RAFAEL (obstructive sleep apnea) Expected: 04/16/2023 (Approximate), Expires: 02/20/2024 [facility] Work Phone: Comment on above: Expected: 04/16/2023 (Approximate), Expi res: 02/20/2024 Start: 04-16-2023 End: 02-20-2024 Cobalamin (Vitamin B12) [Mass/volume] in Serum or Plasma VITAMIN B12 BLOOD Lab Routine Megaloblastic anemia due to vitamin B12 deficiency Elevated sed rate Chronic fatigue and malaise High total serum IgM JOSE RAFAEL (obstructive sleep apnea) Expected: 04/16/2023 (Approximate), Expires: 02/20/2024 [facility] Work Phone: Comment on above: Expected: 04/16/2023 (Approximate), Expi res: 02/20/2024 Start: 04-16-2023 End: 02-20-2024 Comprehensive metabolic 2000 panel - Serum or Plasma COMP METABOLIC PANEL Lab Routine Megaloblastic anemia due to vitamin B12 deficiency Elevated sed rate Chronic fatigue and malaise High total serum IgM JOSE RAFAEL (obstructive sleep apnea) Expected: 04/16/2023 (Approximate), Expires: 02/20/2024 [facility] Work Phone: Comment on above: Expected: 04/16/2023 (Approximate), Expi res: 02/20/2024 Start: 04-16-2023 End: 02-20-2024 Ferritin [Mass/volume] in Serum or Plasma FERRITIN BLD Lab Routine Megaloblastic anemia due to vitamin B12 deficiency Elevated sed rate Chronic fatigue and malaise High total serum IgM JOSE RAFAEL (obstructive sleep apnea) Expected: 04/16/2023 (Approximate), Expires: 02/20/2024 [facility] Work Phone: Comment on above: Expected: 04/16/2023 (Approximate), Expi res: 02/20/2024 Start: 04-16-2023 End: 02-20-2024 Folate [Mass/volume] in Serum or Plasma FOLATE SERUM Lab Routine Megaloblastic anemia due to vitamin B12 deficiency Elevated sed rate Chronic fatigue and malaise High total serum IgM JOSE RAFAEL (obstructive sleep apnea) Expected: 04/16/2023 (Approximate), Expires: 02/20/2024 [facility] Work Phone: Comment on above: Expected: 04/16/2023 (Approximate), Expi res: 02/20/2024 Start: 04-16-2023 End: 02-20-2024 Iron and Iron binding capacity panel - Serum or Plasma IRON + TIBC Lab Routine Megaloblastic anemia due to vitamin B12 deficiency Elevated sed rate Chronic fatigue and malaise High total serum IgM JOSE RAFAEL (obstructive sleep apnea) Expected: 04/16/2023 (Approximate), Expires: 02/20/2024 [facility] Work Phone: Comment on above: Expected: 04/16/2023 (Approximate), Expi res: 02/20/2024 Start: 03-23-2023 COVID-19 Vaccine (3 - Pfizer risk series) COVID-19 Vaccine (3 - Pfizer risk series) [facility] Start: 03-17-2023 Diabetes mellitus screening Diabetes Screening [facility] Start: 03-10-2023 End: 06-09-2023 Insulin [Units/volume] in Serum or Plasma INSULIN ASSAY BLOOD Lab Routine Insulin resistance, unspecified Expected: 03/10/2023, Expires: 06/09/2023 [facility] Work Phone: Comment on above: Expected: 03/10/2023, Expires: Start: 03-10-2023 End: 06-09-2023 INSULIN ANTIBODY BLD INSULIN ANTIBODY BLD Lab Routine Insulin resistance, unspecified Expected: 03/10/2023, Expires: 06/09/2023 [facility] Work Phone: Comment on above: Expected: 03/10/2023, Expires: 4 Start: 02-11-2023 End: 02-08-2024 [id number] [Mass/volume] in Serum or Plasma B2 MICROGLOBULIN B Lab Routine Megaloblastic anemia due to vitamin B12 deficiency High total serum IgM Elevated sed rate Expected: 02/11/2023 (Approximate), Expires: 02/08/2024 [facility] Work Phone: Comment on above: Expected: 02/11/2023 (Approximate), Expi res: 02/08/2024 Start: 02-11-2023 End: 02-08-2024 Calcium.ionized [Moles/volume] in Blood CALCIUM IONIZED BLOOD Lab Routine Megaloblastic anemia due to vitamin B12 deficiency High total serum IgM Elevated sed rate Expected: 02/11/2023 (Approximate), Expires: 02/08/2024 [facility] Work Phone: Comment on above: Expected: 02/11/2023 (Approximate), Expi res: 02/08/2024 Start: 02-11-2023 End: 02-08-2024 CBC W Auto Differential panel - Blood CBC + DIFF Lab Routine Megaloblastic anemia due to vitamin B12 deficiency High total serum IgM Elevated sed rate Expected: 02/11/2023 (Approximate), Expires: 02/08/2024 [facility] Work Phone: Comment on above: Expected: 02/11/2023 (Approximate), Expi res: 02/08/2024 Start: 02-11-2023 End: 02-08-2024 Cobalamin (Vitamin B12) [Mass/volume] in Serum or Plasma VITAMIN B12 BLOOD Lab Routine Megaloblastic anemia due to vitamin B12 deficiency High total serum IgM Elevated sed rate Expected: 02/11/2023 (Approximate), Expires: 02/08/2024 [facility] Work Phone: Comment on above: Expected: 02/11/2023 (Approximate), Expi res: 02/08/2024 Start: 02-11-2023 End: 02-08-2024 Comprehensive metabolic 2000 panel - Serum or Plasma COMP METABOLIC PANEL Lab Routine Megaloblastic anemia due to vitamin B12 deficiency High total serum IgM Elevated sed rate Expected: 02/11/2023 (Approximate), Expires: 02/08/2024 [facility] Work Phone: Comment on above: Expected: 02/11/2023 (Approximate), Expi res: 02/08/2024 Start: 02-11-2023 End: 02-08-2024 Ferritin [Mass/volume] in Serum or Plasma FERRITIN BLD Lab Routine Megaloblastic anemia due to vitamin B12 deficiency High total serum IgM Elevated sed rate Expected: 02/11/2023 (Approximate), Expires: 02/08/2024 [facility] Work Phone: Comment on above: Expected: 02/11/2023 (Approximate), Expi res: 02/08/2024 Start: 02-11-2023 End: 02-08-2024 Folate [Mass/volume] in Serum or Plasma FOLATE SERUM Lab Routine Megaloblastic anemia due to vitamin B12 deficiency High total serum IgM Elevated sed rate Expected: 02/11/2023 (Approximate), Expires: 02/08/2024 [facility] Work Phone: Comment on above: Expected: 02/11/2023 (Approximate), Expi res: 02/08/2024 Start: 02-11-2023 End: 02-08-2024 Iron and Iron binding capacity panel - Serum or Plasma IRON + TIBC Lab Routine Megaloblastic anemia due to vitamin B12 deficiency High total serum IgM Elevated sed rate Expected: 02/11/2023 (Approximate), Expires: 02/08/2024 [facility] Work Phone: Comment on above: Expected: 02/11/2023 (Approximate), Expi res: 02/08/2024 Start: 02-11-2023 End: 04-13-2023 KAPPA/FARMER,FREE,SER KAPPA/FARMER,FREE,SER Lab Routine Megaloblastic anemia due to vitamin B12 deficiency High total serum IgM Elevated sed rate Expected: 02/11/2023 (Approximate), Expires: 04/13/2023 [facility] Work Phone: Comment on above: Expected: 02/11/2023 (Approximate), Expi res: 04/13/2023 Start: 02-11-2023 End: 02-08-2024 Lactate dehydrogenase [Enzymatic activity/volume] in Serum or Plasma LD LACTATE DEHYDRO Lab Routine Megaloblastic anemia due to vitamin B12 deficiency High total serum IgM Elevated sed rate Expected: 02/11/2023 (Approximate), Expires: 02/08/2024 [facility] Work Phone: Comment on above: Expected: 02/11/2023 (Approximate), Expi res: 02/08/2024 Start: 02-11-2023 End: 02-08-2024 MONOCLONAL PROTEIN, SERUM (BLOOD) MONOCLONAL PROTEIN, SERUM (BLOOD) Lab Routine Megaloblastic anemia due to vitamin B12 deficiency High total serum IgM Elevated sed rate Expected: 02/11/2023 (Approximate), Expires: 02/08/2024 [facility] Work Phone: Comment on above: Expected: 02/11/2023 (Approximate), Expi res: 02/08/2024 Start: 02-11-2023 End: 02-08-2024 Phosphate [Mass/volume] in Serum or Plasma PHOSPHORUS INORGANIC Lab Routine Megaloblastic anemia due to vitamin B12 deficiency High total serum IgM Elevated sed rate Expected: 02/11/2023 (Approximate), Expires: 02/08/2024 [facility] Work Phone: Comment on above: Expected: 02/11/2023 (Approximate), Expi res: 02/08/2024 Start: 02-11-2023 End: 02-08-2024 PROTEIN ELECTROPHORESIS SERUM W/INTERP PROTEIN ELECTROPHORESIS SERUM W/INTERP Lab Routine Megaloblastic anemia due to vitamin B12 deficiency High total serum IgM Elevated sed rate Expected: 02/11/2023 (Approximate), Expires: 02/08/2024 [facility] Work Phone: Comment on above: Expected: 02/11/2023 (Approximate), Expi res: 02/08/2024 Start: 02-11-2023 End: 02-08-2024 Urate [Mass/volume] in Serum or Plasma URIC ACID BLOOD Lab Routine Megaloblastic anemia due to vitamin B12 deficiency High total serum IgM Elevated sed rate Expected: 02/11/2023 (Approximate), Expires: 02/08/2024 [facility] Work Phone: Comment on above: Expected: 02/11/2023 (Approximate), Expi res: 02/08/2024 Start: 01-22-2023 Influenza vaccination [facility] Start: 12-17-2022 End: 10-23-2023 CBC W Auto Differential panel - Blood CBC + DIFF Lab Routine Megaloblastic anemia due to vitamin B12 deficiency Expected: 12/17/2022 (Approximate), Expires: 10/23/2023 [facility] Work Phone: Comment on above: Expected: 12/17/2022 (Approximate), Expi res: 10/23/2023 Start: 12-17-2022 End: 10-23-2023 Cobalamin (Vitamin B12) [Mass/volume] in Serum or Plasma VITAMIN B12 BLOOD Lab Routine Megaloblastic anemia due to vitamin B12 deficiency Expected: 12/17/2022 (Approximate), Expires: 10/23/2023 [facility] Work Phone: Comment on above: Expected: 12/17/2022 (Approximate), Expi res: 10/23/2023 Start: 12-17-2022 End: 10-23-2023 Comprehensive metabolic 2000 panel - Serum or Plasma COMP METABOLIC PANEL Lab Routine Megaloblastic anemia due to vitamin B12 deficiency Expected: 12/17/2022 (Approximate), Expires: 10/23/2023 [facility] Work Phone: Comment on above: Expected: 12/17/2022 (Approximate), Expi res: 10/23/2023 Start: 12-17-2022 End: 10-23-2023 Ferritin [Mass/volume] in Serum or Plasma FERRITIN BLD Lab Routine Megaloblastic anemia due to vitamin B12 deficiency Expected: 12/17/2022 (Approximate), Expires: 10/23/2023 [facility] Work Phone: Comment on above: Expected: 12/17/2022 (Approximate), Expi res: 10/23/2023 Start: 12-17-2022 End: 10-23-2023 Folate [Mass/volume] in Serum or Plasma FOLATE SERUM Lab Routine Megaloblastic anemia due to vitamin B12 deficiency Expected: 12/17/2022 (Approximate), Expires: 10/23/2023 [facility] Work Phone: Comment on above: Expected: 12/17/2022 (Approximate), Expi res: 10/23/2023 Start: 12-17-2022 End: 10-23-2023 Iron and Iron binding capacity panel - Serum or Plasma IRON + TIBC Lab Routine Megaloblastic anemia due to vitamin B12 deficiency Expected: 12/17/2022 (Approximate), Expires: 10/23/2023 [facility] Work Phone: Comment on above: Expected: 12/17/2022 (Approximate), Expi res: 10/23/2023 Start: 10-23-2022 End: 12-23-2022 25-hydroxyvitamin D3 [Mass/volume] in Serum or Plasma VITAMIN D 25 HYDROXY Lab Routine Megaloblastic anemia due to vitamin B12 deficiency Elevated sed rate High total serum IgM Chronic fatigue and malaise JOSE RAFAEL (obstructive sleep apnea) Expected: 10/23/2022, Expires: 12/23/2022 [facility] Work Phone: Comment on above: Expected: 10/23/2022, Expires: 3 Start: 10-23-2022 End: 12-23-2022 C reactive protein [Mass/volume] in Serum or Plasma C-REACTIVE PROTEIN (CRP) Lab Routine Megaloblastic anemia due to vitamin B12 deficiency Elevated sed rate High total serum IgM Chronic fatigue and malaise JOSE RAFAEL (obstructive sleep apnea) Expected: 10/23/2022, Expires: 12/23/2022 [facility] Work Phone: Comment on above: Expected: 10/23/2022, Expires: 3 Start: 10-23-2022 End: 12-23-2022 CBC W Auto Differential panel - Blood CBC + DIFF Lab Routine Megaloblastic anemia due to vitamin B12 deficiency Elevated sed rate High total serum IgM Chronic fatigue and malaise JOSE RAFAEL (obstructive sleep apnea) Expected: 10/23/2022, Expires: 12/23/2022 [facility] Work Phone: Comment on above: Expected: 10/23/2022, Expires: 3 Start: 10-23-2022 End: 12-23-2022 Cobalamin (Vitamin B12) [Mass/volume] in Serum or Plasma VITAMIN B12 BLOOD Lab Routine Megaloblastic anemia due to vitamin B12 deficiency Elevated sed rate High total serum IgM Chronic fatigue and malaise JOSE RAFAEL (obstructive sleep apnea) Expected: 10/23/2022, Expires: 12/23/2022 [facility] Work Phone: Comment on above: Expected: 10/23/2022, Expires: 3 Start: 10-23-2022 End: 12-23-2022 Comprehensive metabolic 2000 panel - Serum or Plasma COMP METABOLIC PANEL Lab Routine Megaloblastic anemia due to vitamin B12 deficiency Elevated sed rate High total serum IgM Chronic fatigue and malaise JOSE RAFAEL (obstructive sleep apnea) Expected: 10/23/2022, Expires: 12/23/2022 [facility] Work Phone: Comment on above: Expected: 10/23/2022, Expires: 3 Start: 10-23-2022 End: 12-23-2022 Erythrocyte sedimentation rate SED RATE WESTERGREN Lab Routine Megaloblastic anemia due to vitamin B12 deficiency Elevated sed rate High total serum IgM Chronic fatigue and malaise JOSE RAFAEL (obstructive sleep apnea) Expected: 10/23/2022, Expires: 12/23/2022 [facility] Work Phone: Comment on above: Expected: 10/23/2022, Expires: 3 Start: 10-23-2022 End: 12-23-2022 Lactate dehydrogenase [Enzymatic activity/volume] in Serum or Plasma LD LACTATE DEHYDRO Lab Routine Megaloblastic anemia due to vitamin B12 deficiency Elevated sed rate High total serum IgM Chronic fatigue and malaise JOSE RAFAEL (obstructive sleep apnea) Expected: 10/23/2022, Expires: 12/23/2022 [facility] Work Phone: Comment on above: Expected: 10/23/2022, Expires: 3 Start: 10-23-2022 End: 12-23-2022 MONOCLONAL PROTEIN, SERUM (BLOOD) MONOCLONAL PROTEIN, SERUM (BLOOD) Lab Routine Megaloblastic anemia due to vitamin B12 deficiency Elevated sed rate High total serum IgM Chronic fatigue and malaise JOSE RAFAEL (obstructive sleep apnea) Expected: 10/23/2022, Expires: 12/23/2022 [facility] Work Phone: Comment on above: Expected: 10/23/2022, Expires: 3 Start: 10-23-2022 End: 12-23-2022 PROT ELECT SERUM WITH DANA AND INTERP PROT ELECT SERUM WITH DANA AND INTERP Lab Routine Megaloblastic anemia due to vitamin B12 deficiency Elevated sed rate High total serum IgM Chronic fatigue and malaise JOSE RAFAEL (obstructive sleep apnea) Expected: 10/23/2022, Expires: 12/23/2022 [facility] Work Phone: Comment on above: Expected: 10/23/2022, Expires: Start: 09-19-2022 End: 08-20-2023 CBC panel - Blood by Automated count CBC Lab Routine Anemia of chronic disease Expected: 09/19/2022 (Approximate), Expires: 08/20/2023 [facility] Work Phone: Comment on above: Expected: 09/19/2022 (Approximate), Expi res: 08/20/2023 Start: 09-19-2022 End: 08-20-2023 Comprehensive metabolic 2000 panel - Serum or Plasma COMP METABOLIC PANEL Lab Routine Elevated LFTs Expected: 09/19/2022 (Approximate), Expires: 08/20/2023 [facility] Work Phone: Comment on above: Expected: 09/19/2022 (Approximate), Expi res: 08/20/2023 Start: 09-19-2022 End: 11-19-2022 TPMT PHENOTYPE/ENZYME ACTIVITY TPMT PHENOTYPE/ENZYME ACTIVITY Lab Routine 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 Expected: 09/19/2022 (Approximate), Expires: 11/19/2022 [facility] Work Phone: Comment on above: Expected: 09/19/2022 (Approximate), Expi res: 11/19/2022 Start: 08-28-2022 End: 10-28-2022 25-hydroxyvitamin D3 [Mass/volume] in Serum or Plasma VITAMIN D 25 HYDROXY Lab Routine Megaloblastic anemia due to vitamin B12 deficiency Elevated sed rate High total serum IgM Chronic fatigue and malaise Expected: 08/28/2022 (Approximate), Expires: 10/28/2022 [facility] Work Phone: Comment on above: Expected: 08/28/2022 (Approximate), Expi res: 10/28/2022 Start: 08-28-2022 End: 07-26-2023 [id number] [Mass/volume] in Serum or Plasma B2 MICROGLOBULIN B Lab Routine Megaloblastic anemia due to vitamin B12 deficiency Elevated sed rate High total serum IgM Chronic fatigue and malaise Expected: 08/28/2022 (Approximate), Expires: 07/26/2023 [facility] Work Phone: Comment on above: Expected: 08/28/2022 (Approximate), Expi res: 07/26/2023 Start: 08-28-2022 End: 10-28-2022 C reactive protein [Mass/volume] in Serum or Plasma C-REACTIVE PROTEIN (CRP) Lab Routine Megaloblastic anemia due to vitamin B12 deficiency Elevated sed rate High total serum IgM Chronic fatigue and malaise Expected: 08/28/2022 (Approximate), Expires: 10/28/2022 [facility] Work Phone: Comment on above: Expected: 08/28/2022 (Approximate), Expi res: 10/28/2022 Start: 08-28-2022 End: 07-26-2023 Calcium.ionized [Moles/volume] in Blood CALCIUM IONIZED BLOOD Lab Routine Megaloblastic anemia due to vitamin B12 deficiency Elevated sed rate High total serum IgM Chronic fatigue and malaise Expected: 08/28/2022 (Approximate), Expires: 07/26/2023 [facility] Work Phone: Comment on above: Expected: 08/28/2022 (Approximate), Expi res: 07/26/2023 Start: 08-28-2022 End: 07-26-2023 CBC W Auto Differential panel - Blood CBC + DIFF Lab Routine Megaloblastic anemia due to vitamin B12 deficiency Elevated sed rate High total serum IgM Chronic fatigue and malaise Expected: 08/28/2022 (Approximate), Expires: 07/26/2023 [facility] Work Phone: Comment on above: Expected: 08/28/2022 (Approximate), Expi res: 07/26/2023 Start: 08-28-2022 End: 10-28-2022 Cobalamin (Vitamin B12) [Mass/volume] in Serum or Plasma VITAMIN B12 BLOOD Lab Routine Megaloblastic anemia due to vitamin B12 deficiency Elevated sed rate High total serum IgM Chronic fatigue and malaise Expected: 08/28/2022 (Approximate), Expires: 10/28/2022 [facility] Work Phone: Comment on above: Expected: 08/28/2022 (Approximate), Expi res: 10/28/2022 Start: 08-28-2022 End: 07-26-2023 Comprehensive metabolic 2000 panel - Serum or Plasma COMP METABOLIC PANEL Lab Routine Megaloblastic anemia due to vitamin B12 deficiency Elevated sed rate High total serum IgM Chronic fatigue and malaise Expected: 08/28/2022 (Approximate), Expires: 07/26/2023 [facility] Work Phone: Comment on above: Expected: 08/28/2022 (Approximate), Expi res: 07/26/2023 Start: 08-28-2022 End: 10-28-2022 Erythrocyte sedimentation rate SED RATE WESTERGREN Lab Routine Megaloblastic anemia due to vitamin B12 deficiency Elevated sed rate High total serum IgM Chronic fatigue and malaise Expected: 08/28/2022 (Approximate), Expires: 10/28/2022 [facility] Work Phone: Comment on above: Expected: 08/28/2022 (Approximate), Expi res: 10/28/2022 Start: 08-28-2022 End: 10-28-2022 KAPPA/FARMER,FREE,SER KAPPA/FARMER,FREE,SER Lab Routine Megaloblastic anemia due to vitamin B12 deficiency Elevated sed rate High total serum IgM Chronic fatigue and malaise Expected: 08/28/2022 (Approximate), Expires: 10/28/2022 [facility] Work Phone: Comment on above: Expected: 08/28/2022 (Approximate), Expi res: 10/28/2022 Start: 08-28-2022 End: 07-26-2023 Lactate dehydrogenase [Enzymatic activity/volume] in Serum or Plasma LD LACTATE DEHYDRO Lab Routine Megaloblastic anemia due to vitamin B12 deficiency Elevated sed rate High total serum IgM Chronic fatigue and malaise Expected: 08/28/2022 (Approximate), Expires: 07/26/2023 [facility] Work Phone: Comment on above: Expected: 08/28/2022 (Approximate), Expi res: 07/26/2023 Start: 08-28-2022 End: 07-26-2023 MONOCLONAL PROTEIN, SERUM (BLOOD) MONOCLONAL PROTEIN, SERUM (BLOOD) Lab Routine Megaloblastic anemia due to vitamin B12 deficiency Elevated sed rate High total serum IgM Chronic fatigue and malaise Expected: 08/28/2022 (Approximate), Expires: 07/26/2023 [facility] Work Phone: Comment on above: Expected: 08/28/2022 (Approximate), Expi res: 07/26/2023 Start: 08-28-2022 End: 07-26-2023 Phosphate [Mass/volume] in Serum or Plasma PHOSPHORUS INORGANIC Lab Routine Megaloblastic anemia due to vitamin B12 deficiency Elevated sed rate High total serum IgM Chronic fatigue and malaise Expected: 08/28/2022 (Approximate), Expires: 07/26/2023 [facility] Work Phone: Comment on above: Expected: 08/28/2022 (Approximate), Expi res: 07/26/2023 Start: 08-28-2022 End: 07-26-2023 PROTEIN ELECTROPHORESIS SERUM W/INTERP PROTEIN ELECTROPHORESIS SERUM W/INTERP Lab Routine Megaloblastic anemia due to vitamin B12 deficiency Elevated sed rate High total serum IgM Chronic fatigue and malaise Expected: 08/28/2022 (Approximate), Expires: 07/26/2023 [facility] Work Phone: Comment on above: Expected: 08/28/2022 (Approximate), Expi res: 07/26/2023 Start: 08-28-2022 End: 07-26-2023 Urate [Mass/volume] in Serum or Plasma URIC ACID BLOOD Lab Routine Megaloblastic anemia due to vitamin B12 deficiency Elevated sed rate High total serum IgM Chronic fatigue and malaise Expected: 08/28/2022 (Approximate), Expires: 07/26/2023 [facility] Work Phone: Comment on above: Expected: 08/28/2022 (Approximate), Expi res: 07/26/2023 Start: 07-15-2022 End: 05-20-2023 [id number] [Mass/volume] in Serum or Plasma B2 MICROGLOBULIN B Lab Routine High total serum IgM Expected: 07/15/2022 (Approximate), Expires: 05/20/2023 [facility] Work Phone: Comment on above: Expected: 07/15/2022 (Approximate), Expi res: 05/20/2023 Start: 07-15-2022 End: 05-20-2023 Calcium.ionized [Moles/volume] in Blood CALCIUM IONIZED BLOOD Lab Routine High total serum IgM Expected: 07/15/2022 (Approximate), Expires: 05/20/2023 [facility] Work Phone: Comment on above: Expected: 07/15/2022 (Approximate), Expi res: 05/20/2023 Start: 07-15-2022 End: 05-20-2023 CBC W Auto Differential panel - Blood CBC + DIFF Lab Routine High total serum IgM Expected: 07/15/2022 (Approximate), Expires: 05/20/2023 [facility] Work Phone: Comment on above: Expected: 07/15/2022 (Approximate), Expi res: 05/20/2023 Start: 07-15-2022 End: 05-20-2023 Comprehensive metabolic 2000 panel - Serum or Plasma COMP METABOLIC PANEL Lab Routine High total serum IgM Expected: 07/15/2022 (Approximate), Expires: 05/20/2023 [facility] Work Phone: Comment on above: Expected: 07/15/2022 (Approximate), Expi res: 05/20/2023 Start: 07-15-2022 End: 09-14-2022 KAPPA/FARMER,FREE,SER KAPPA/FARMER,FREE,SER Lab Routine High total serum IgM Expected: 07/15/2022 (Approximate), Expires: 09/14/2022 [facility] Work Phone: Comment on above: Expected: 07/15/2022 (Approximate), Expi res: 09/14/2022 Start: 07-15-2022 End: 05-20-2023 Lactate dehydrogenase [Enzymatic activity/volume] in Serum or Plasma LD LACTATE DEHYDRO Lab Routine High total serum IgM Expected: 07/15/2022 (Approximate), Expires: 05/20/2023 [facility] Work Phone: Comment on above: Expected: 07/15/2022 (Approximate), Expi res: 05/20/2023 Start: 07-15-2022 End: 05-20-2023 MONOCLONAL PROTEIN, SERUM (BLOOD) MONOCLONAL PROTEIN, SERUM (BLOOD) Lab Routine High total serum IgM Expected: 07/15/2022 (Approximate), Expires: 05/20/2023 [facility] Work Phone: Comment on above: Expected: 07/15/2022 (Approximate), Expi res: 05/20/2023 Start: 07-15-2022 End: 05-20-2023 Phosphate [Mass/volume] in Serum or Plasma PHOSPHORUS INORGANIC Lab Routine High total serum IgM Expected: 07/15/2022 (Approximate), Expires: 05/20/2023 [facility] Work Phone: Comment on above: Expected: 07/15/2022 (Approximate), Expi res: 05/20/2023 Start: 07-15-2022 End: 05-20-2023 PROTEIN ELECTROPHORESIS SERUM W/INTERP PROTEIN ELECTROPHORESIS SERUM W/INTERP Lab Routine High total serum IgM Expected: 07/15/2022 (Approximate), Expires: 05/20/2023 [facility] Work Phone: Comment on above: Expected: 07/15/2022 (Approximate), Expi res: 05/20/2023 Start: 07-15-2022 End: 05-20-2023 Urate [Mass/volume] in Serum or Plasma URIC ACID BLOOD Lab Routine High total serum IgM Expected: 07/15/2022 (Approximate), Expires: 05/20/2023 [facility] Work Phone: Comment on above: Expected: 07/15/2022 (Approximate), Expi res: 05/20/2023 Start: 06-05-2022 End: 03-05-2023 25-hydroxyvitamin D3 [Mass/volume] in Serum or Plasma VITAMIN D 25 HYDROXY Lab Routine Vitamin D deficiency Expected: 06/05/2022 (Approximate), Expires: 03/05/2023 [facility] Work Phone: Comment on above: Expected: 06/05/2022 (Approximate), Expi res: 03/05/2023 Start: 06-05-2022 End: 03-05-2023 C reactive protein [Mass/volume] in Serum or Plasma C-REACTIVE PROTEIN (CRP) Lab Routine Elevated sed rate Elevated C-reactive protein (CRP) Expected: 06/05/2022 (Approximate), Expires: 03/05/2023 [facility] Work Phone: Comment on above: Expected: 06/05/2022 (Approximate), Expi res: 03/05/2023 Start: 06-05-2022 End: 03-05-2023 Cobalamin (Vitamin B12) [Mass/volume] in Serum or Plasma VITAMIN B12 BLOOD Lab Routine Vitamin B12 deficiency Expected: 06/05/2022 (Approximate), Expires: 03/05/2023 [facility] Work Phone: Comment on above: Expected: 06/05/2022 (Approximate), Expi res: 03/05/2023 Start: 06-05-2022 End: 03-05-2023 Erythrocyte sedimentation rate SED RATE WESTERGREN Lab Routine Elevated sed rate Elevated C-reactive protein (CRP) Expected: 06/05/2022 (Approximate), Expires: 03/05/2023 [facility] Work Phone: Comment on above: Expected: 06/05/2022 (Approximate), Expi res: 03/05/2023 Start: 05-06-2022 End: 03-18-2023 [id number] [Mass/volume] in Serum or Plasma B2 MICROGLOBULIN B Lab Routine Megaloblastic anemia due to vitamin B12 deficiency High total serum IgM Expected: 05/06/2022 (Approximate), Expires: 03/18/2023 [facility] Work Phone: Comment on above: Expected: 05/06/2022 (Approximate), Expi res: 03/18/2023 Start: 05-06-2022 End: 03-18-2023 Calcium.ionized [Moles/volume] in Blood CALCIUM IONIZED BLOOD Lab Routine Megaloblastic anemia due to vitamin B12 deficiency High total serum IgM Expected: 05/06/2022 (Approximate), Expires: 03/18/2023 [facility] Work Phone: Comment on above: Expected: 05/06/2022 (Approximate), Expi res: 03/18/2023 Start: 05-06-2022 End: 03-18-2023 CBC W Auto Differential panel - Blood CBC + DIFF Lab Routine Megaloblastic anemia due to vitamin B12 deficiency High total serum IgM Expected: 05/06/2022 (Approximate), Expires: 03/18/2023 [facility] Work Phone: Comment on above: Expected: 05/06/2022 (Approximate), Expi res: 03/18/2023 Start: 05-06-2022 End: 03-18-2023 Comprehensive metabolic 2000 panel - Serum or Plasma COMP METABOLIC PANEL Lab Routine Megaloblastic anemia due to vitamin B12 deficiency High total serum IgM Expected: 05/06/2022 (Approximate), Expires: 03/18/2023 [facility] Work Phone: Comment on above: Expected: 05/06/2022 (Approximate), Expi res: 03/18/2023 Start: 05-06-2022 End: 03-18-2023 Ferritin [Mass/volume] in Serum or Plasma FERRITIN BLD Lab Routine Megaloblastic anemia due to vitamin B12 deficiency High total serum IgM Expected: 05/06/2022 (Approximate), Expires: 03/18/2023 [facility] Work Phone: Comment on above: Expected: 05/06/2022 (Approximate), Expi res: 03/18/2023 Start: 05-06-2022 End: 03-18-2023 Iron and Iron binding capacity panel - Serum or Plasma IRON + TIBC Lab Routine Megaloblastic anemia due to vitamin B12 deficiency High total serum IgM Expected: 05/06/2022 (Approximate), Expires: 03/18/2023 [facility] Work Phone: Comment on above: Expected: 05/06/2022 (Approximate), Expi res: 03/18/2023 Start: 05-06-2022 End: 03-18-2023 Lactate dehydrogenase [Enzymatic activity/volume] in Serum or Plasma LD LACTATE DEHYDRO Lab Routine Megaloblastic anemia due to vitamin B12 deficiency High total serum IgM Expected: 05/06/2022 (Approximate), Expires: 03/18/2023 [facility] Work Phone: Comment on above: Expected: 05/06/2022 (Approximate), Expi res: 03/18/2023 Start: 05-06-2022 End: 03-18-2023 MONOCLONAL PROTEIN, SERUM (BLOOD) MONOCLONAL PROTEIN, SERUM (BLOOD) Lab Routine Megaloblastic anemia due to vitamin B12 deficiency High total serum IgM Expected: 05/06/2022 (Approximate), Expires: 03/18/2023 [facility] Work Phone: Comment on above: Expected: 05/06/2022 (Approximate), Expi res: 03/18/2023 Start: 05-06-2022 End: 03-18-2023 Phosphate [Mass/volume] in Serum or Plasma PHOSPHORUS INORGANIC Lab Routine Megaloblastic anemia due to vitamin B12 deficiency High total serum IgM Expected: 05/06/2022 (Approximate), Expires: 03/18/2023 [facility] Work Phone: Comment on above: Expected: 05/06/2022 (Approximate), Expi res: 03/18/2023 Start: 05-06-2022 End: 03-18-2023 PROTEIN ELECTROPHORESIS SERUM W/INTERP PROTEIN ELECTROPHORESIS SERUM W/INTERP Lab Routine Megaloblastic anemia due to vitamin B12 deficiency High total serum IgM Expected: 05/06/2022 (Approximate), Expires: 03/18/2023 [facility] Work Phone: Comment on above: Expected: 05/06/2022 (Approximate), Expi res: 03/18/2023 Start: 05-06-2022 End: 03-18-2023 Urate [Mass/volume] in Serum or Plasma URIC ACID BLOOD Lab Routine Megaloblastic anemia due to vitamin B12 deficiency High total serum IgM Expected: 05/06/2022 (Approximate), Expires: 03/18/2023 [facility] Work Phone: Comment on above: Expected: 05/06/2022 (Approximate), Expi res: 03/18/2023 Start: 04-05-2022 COVID-19 VACCINE (5 - Pfizer risk series) COVID-19 VACCINE (5 - Pfizer risk series) [facility] Start: 03-09-2022 End: 05-09-2022 Hemoglobin A1c in Blood HGB A1C Lab Routine Elevated glucose Expected: 03/09/2022, Expires: 05/09/2022 [facility] Work Phone: Comment on above: Expected: 03/09/2022, Expires: 2 Start: 02-24-2022 End: 04-26-2022 BARTONELLA AB PANEL BARTONELLA AB PANEL Lab Routine Swelling of lymph nodes Expected: 02/24/2022, Expires: 04/26/2022 [facility] Work Phone: Comment on above: Expected: 02/24/2022, Expires: 2 Start: 02-24-2022 End: 04-26-2022 BRUCELLA AB TOTAL BRUCELLA AB TOTAL Lab Routine Swelling of lymph nodes Expected: 02/24/2022, Expires: 04/26/2022 [facility] Work Phone: Comment on above: Expected: 02/24/2022, Expires: 2 Start: 02-24-2022 End: 04-26-2022 Cryptococcus sp Ag [Presence] in Unspecified specimen by Latex agglutination CRYPTOCOCCUS AG DET Microbiology Routine Swelling of lymph nodes Expected: 02/24/2022, Expires: 04/26/2022 [facility] Work Phone: Comment on above: Expected: 02/24/2022, Expires: 2 Start: 02-24-2022 End: 04-26-2022 HISTOPLASMA AG URINE HISTOPLASMA AG URINE Lab Routine Swelling of lymph nodes Expected: 02/24/2022, Expires: 04/26/2022 [facility] Work Phone: Comment on above: Expected: 02/24/2022, Expires: 2 Start: 02-24-2022 End: 04-26-2022 HIV 1 RNA [#/volume] (viral load) in Serum or Plasma by YESSI with probe detection HIV RNA VIRAL LOAD Lab Routine Swelling of lymph nodes Expected: 02/24/2022, Expires: 04/26/2022 [facility] Work Phone: Comment on above: Expected: 02/24/2022, Expires: 2 Start: 02-24-2022 End: 04-26-2022 SYPHILIS TOTAL W/REFLEX SYPHILIS TOTAL W/REFLEX Lab Routine Swelling of lymph nodes Expected: 02/24/2022, Expires: 04/26/2022 [facility] Work Phone: Comment on above: Expected: 02/24/2022, Expires: 2 Start: 01-22-2022 Influenza vaccination [facility] Start: 08-24-2021 COVID-19 VACCINE (4 - Booster for Pfizer series) COVID-19 VACCINE (4 - Booster for Pfizer series) [facility] Start: 01-22-2021 Influenza vaccination Flu vaccine (Season Ended) [facility] Work Phone: Start: 2020 Lipid panel Lipid screen [facility] Work Phone: Start: 2020 Mammography [facility] Start: 2020 Screening for malignant neoplasm of breast [facility] Start: 2010 HPV TESTING HPV TESTING [facility] Start: 2010 Screening for malignant neoplasm of cervix [facility] Start: 10-05-2007 HPV Vaccine (1 - Risk 3-dose SCDM series) HPV Vaccine (1 - Risk 3-dose SCDM series) [facility] Start: 2002 DTaP/Tdap/Td Vaccines (1 - Tdap) DTaP/Tdap/Td Vaccines (1 - Tdap) [facility] Start: 2001 PAP TESTING PAP TESTING [facility] Start: 2001 Screening for malignant neoplasm of cervix [facility] Start: 10-05-1999 DTaP,Tdap and Td Vaccines (1 - Tdap) DTaP,Tdap and Td Vaccines (1 - Tdap) [facility] Start: 10-05-1999 DTaP/Tdap/Td vaccine (1 - Tdap) DTaP/Tdap/Td vaccine (1 - Tdap) [employer] Phone: Start: 10-05-1999 Hepatitis B Vaccine (1 of 3 - 19+ 3-dose series) Hepatitis B Vaccine (1 of 3 - 19+ 3-dose series) [facility] Start: 10-05-1999 Hepatitis B Vaccines (1 of 3 - 19+ 3-dose series) Hepatitis B Vaccines (1 of 3 - 19+ 3-dose series) [facility] Start: 10-05-1999 Pneumococcal vaccination Pneumococcal Vaccine (1 of 2 - PCV) [facility] Start: 10-05-1999 Pneumococcal Vaccine: Pediatrics and At-Risk Adult Patients (1 of 2 - PCV) Pneumococcal Vaccine: Pediatrics and At-Risk Adult Patients (1 of 2 - PCV) [facility] Start: 10-05-1999 SHINGRIX VACCINE (1 of 2) SHINGRIX VACCINE (1 of 2) [facility] Start: 10-05-1999 Urine microalbumin profile [facility] Start: 10-05-1999 Zoster Vaccines (1 of 2) Zoster Vaccines (1 of 2) [facility] Start: 1998 Adult BMI Follow Up Plan Adult BMI Follow Up Plan [facility] Start: 1998 Adult BMI Screening Adult BMI Screening [facility] Start: 1998 Anxiety Screening Anxiety Screening [facility] Start: 1998 Hepatitis C screening Hepatitis C Screening [facility] Start: 1998 HIV SCREENING HIV SCREENING [facility] Start: 1998 HIV screening HIV Screening [facility] Start: 10-05-1995 HIV screening HIV screen [facility] Phone: Start: 1993 Varicella vaccination Varicella Vaccines (1 of 2 - 13+ 2-dose series) [facility] Start: 1992 COVID-19 Vaccine (1) COVID-19 Vaccine (1) [facility] Phone: Start: 1992 Depression Screening Depression Screening [facility] Start: 1992 Tobacco Screening Tobacco Screening [facility] Start: 10-05-1991 Screening for malignant neoplasm of cervix Cervical Cancer Screening [facility] Start: 1986 PNEUMOCOCCAL (1 - PCV) PNEUMOCOCCAL (1 - PCV) [facility] Start: 1986 Pneumococcal vaccination [facility] Start: 1986 Pneumococcal Vaccine: Pediatrics [...] (1 of 2 - 2-dose childhood series) [facility] Phone: Start: 1980 HEPATITIS B (1 of 3 - 3-dose series) HEPATITIS B (1 of 3 - 3-dose series) [facility] Start: 1980 Hepatitis B Vaccine (1 of 3 - 3-dose series) Hepatitis B Vaccine (1 of 3 - 3-dose series) [facility] Start: 1980 Hepatitis B Vaccines (1 of 3 - 3-dose series) Hepatitis B Vaccines (1 of 3 - 3-dose series) [facility] Start: 1980 Hepatitis C screening Hepatitis C screen [facility] Phone: Start: 1980 HIV screening HIV Screening [facility] Start: 1980 HPV Vaccine: Recommended Based On Risk HPV Vaccine: Recommended Based On Risk [facility] Start: 1980 Lipid panel Lipid Panel [facility] Start: 1980 Screening for osteoporosis Bone Density Scan [facility] Start: 1980 Tobacco Counseling Tobacco Counseling [facility] Start: 1980 Yearly Adult Physical Yearly Adult Physical [facility] 25-hydroxyvitamin D3 [Mass/volume] in Serum or Plasma VITAMIN D 25 HYDROXY Lab Routine Vitamin D deficiency 01/11/2025 1:48 PM EDT [facility] BLOOD TB SCREEN BLOOD TB SCREEN Lab Routine Screening-pulmonary TB 01/11/2025 1:48 PM EDT [facility] C reactive protein [Mass/volume] in Serum or Plasma C-REACTIVE PROTEIN Lab Routine Elevated sed rate Elevated C-reactive protein (CRP) 01/11/2025 1:48 PM EDT [facility] Cardiovascular funct ion eval w/tilt table w/mntr TILT TABLE EVALUATION Cardiology Routine POTS (postural orthostatic tachycardia syndrome) Ordered: 03/09/2022 [facility] Work Phone: Comment on above: Ordered: 03/09/2022 CBC W Auto Different ial panel - Blood CBC and differential Lab Routine Menorrhagia with regular cycle Ordered: 03/23/2024 [facility] [employer] Work Phone: Comment on above: Ordered: 03/23/2024 Chronic hepatitis differentiation between hepatitis B and C virus panel - Serum or Plasma HEP REMOTE PANEL BL Lab Routine Elevated LFTs 01/11/2025 1:48 PM EDT [facility] Cobalamin (Vitamin B 12) [Mass/volume] in Serum or Plasma VITAMIN B12 Lab Routine Vitamin B12 deficiency 01/11/2025 1:48 PM EDT [facility] CT Abdomen W contrast IV [facility] End: 03-05-2024 DXA-AXIAL SKELETON DXA-AXIAL SKELETON Radiology Routine Steroid-induced osteoporosis 1 Occurrences starting 02/04/2023 until 03/05/2024 [facility] Work Phone: Comment on above: 1 Occurrences starting 02/04/2023 until 03/05/2024 End: 03-05-2024 DXA-FOREARM SKELETON DXA-FOREARM SKELETON Radiology Routine Steroid-induced osteoporosis 1 Occurrences starting 02/04/2023 until 03/05/2024 [facility] Work Phone: Comment on above: 1 Occurrences starting 02/04/2023 until 03/05/2024 ECG 12 Lead ECG 12 Lead ECG Routine Irregular heart rate 06/09/2023 8:28 AM EST [facility] Work Phone: Erythrocyte sediment ation rate SEDIMENTATION RATE, WESTERGREN Lab Routine Elevated sed rate Elevated C-reactive protein (CRP) 01/11/2025 1:48 PM EDT [facility] Work Phone: hCG, quantitative, hCG, quantitative, Lab Routine Menorrhagia with regular cycle Ordered: 03/23/2024 [facility] Comment on above: Ordered: 03/23/2024 Hemoglobin A1c/Hemoglobin.total in Blood Hemoglobin A1c Lab Routine Menorrhagia with regular cycle Ordered: 03/23/2024 [facility] Comment on above: Ordered: 03/23/2024 Hepatitis B virus co re Ab [Presence] in Serum HEPATITIS B CORE ANTIBODY TOTAL Lab Routine Elevated LFTs 01/11/2025 1:48 PM EDT [facility] Hepatitis B virus galarza rface Ab [Presence] in Serum HEPATITIS B SURFACE ANTIBODY Lab Routine Elevated LFTs 01/11/2025 1:48 PM EDT [facility] Hepatitis B virus galarza rface Ag [Presence] in Serum HEPATITIS B SURFACE ANTIGEN Lab Routine Elevated LFTs 01/11/2025 1:48 PM EDT [facility] Hepatitis C virus Ab [Presence] in Serum HEPATITIS C ANTIBODY IA WITH CONFIRMATION Lab Routine Elevated LFTs 01/11/2025 1:48 PM EDT [facility] End: 03-09-2023 HOME SLEEP APNEA TEST (HSAT) HOME SLEEP APNEA TEST (HSAT) Procedures Routine Somnolence, daytime Snoring 1 Occurrences starting 03/09/2022 until 03/09/2023 [facility] Work Phone: Comment on above: 1 Occurrences starting 03/09/2022 until 03/09/2023 HYDROGEN BREATH TEST B/O HYDROGE N BREATH TEST B/O Procedures Routine Diarrhea, unspecified type Abdominal pressure Ordered: 06/14/2024 [facility] Work Phone: Comment on above: Ordered: 06/14/2024 Oxygen therapy [[facility] Data Set] Initiate Oxygen Therapy Protocol Respiratory Care Routine Daily until discontinued starting 10/07/2020 [facility] Work Phone: Comment on above: Daily until discontinued starting 2020 Patient Education Know your Meds Jorge Luis Non Diagnostic Block [facility] Work Phone: Patient referral [facility] Work Phone: End: 03-04-2023 Polysomnogram POLYSOMNOGRAM (PSG) Procedures Routine Somnolence, daytime Snoring 1 Occurrences starting 03/04/2022 until 03/04/2023 [facility] Work Phone: Comment on above: 1 Occurrences starting 03/04/2022 until 03/04/2023 Prothrombin time (PT ) in Blood by Coagulation assay Protime-INR Lab Routine Menorrhagia with regular cycle Ordered: 03/23/2024 [facility] Comment on above: Ordered: 03/23/2024 THIN PREP TIS PAP AN D HR HPV DNA THIN PREP TIS PAP AND HR HPV DNA Pathology and Cytology Routine Well woman exam with routine gynecological exam Ordered: 06/06/2024 [facility] Comment on above: Ordered: 06/06/2024 Thyrotropin [Units/v olume] in Serum or Plasma TSH Lab Routine Menorrhagia with regular cycle Ordered: 03/23/2024 [facility] Comment on above: Ordered: 03/23/2024 Thyroxine (T4) free [Mass/volume] in Serum or Plasma T4, free Lab Routine Menorrhagia with regular cycle Ordered: 03/23/2024 [facility] Comment on above: Ordered: 03/23/2024 XR Thoracic spine 3 Views [facility] c [facility] c [facility] c [facility] c [facility] Immunizations Immunization Date Immunization Notes Care Provider Fa cili 02-23-2023 COVID-19 vaccine, ag e 12+ yr, season (PFIZER-BIONTTrustribe) Lynne Ni MD Work Phone: [facility] 02-08-2022 COVID-19 mRNA Bivale nt Booster (Pfizer) Gay Enciso GEROPSYCHOLOGIST-C Work Phone: [facility] 05-26-2021 COVID-19 mRNA, Comirnaty (Pfizer) Gay Enciso GEROPSYCHOLOGIST-C Work Phone: [facility] 10-19-2020 COVID-19 mRNA, Comirnaty (Pfizer) Gay Enciso GEROPSYCHOLOGIST-C Work Phone: [facility] 09-28-2020 COVID-19 mRNA, Comirnaty (Pfizer) Gay Enciso GEROPSYCHOLOGIST-C Work Phone: [facility] Payers Date Payer Category Payer Medicaid [facility] [id number] 2024 Self-pay [id number] 2017 Medicaid (Managed Care) [employer] [id number] 2017 Private Health Insurance [facility] [id number] 2017 Unknown [employer] [id number] 2017-Present [address] [place] [address] [id number] 2009 Medicaid [employer] [id number] 2009-Present [phone] [address] [place] [address] Medicaid [id number] 2009 Medicaid [id number]. [id number] 1980 Unknown [id number] 2.16.840.1.649137.3.579.2. 185 1980 Unknown [id number] 2.16.840.1.979615.3.579.2. 175 1980 Unknown [id number] 2.16.840.1.625154.3.579.2. 593 1980 Unknown [id number] 2.16.840.1.750617.3.579.2. 593 1980 Unknown [id number] 2.16.840.1.102297.3.579.2. 593 1980 Unknown [id number] 2.16.840.1.507400.3.579.2. 593 1980 Unknown [id number] 2.16.840.1.759727.3.579.2. 593 1980 Unknown [id number] 2.16.840.1.262521.3.579.2. 593 1980 Unknown [id number] 2.16.840.1.180909.3.579.2. 593 1980 Unknown [id number] 2.16.840.1.535572.3.579.2. 593 1980 Unknown [id number] 2.16.840.1.991570.3.579.2. 593 1980 Unknown [id number] 2.16.840.1.526456.3.579.2. 593 1980 Unknown [id number] 2.16.840.1.648401.3.579.2. 1244 1980 Unknown [id number] 2.16.840.1.885383.3.579.2. 1244 1980 Unknown [id number] 2.16.840.1.212385.3.579.2. 1259 1980 Unknown [id number] 2.16.840.1.690116.3.579.2. 1259 1980 Unknown [id number] 2.16.840.1.142485.3.579.2. 1258 1980 Unknown [id number] 2.16.840.1.994144.3.579.2. 1258 1980 Unknown [id number] 2.16.840.1.813382.3.579.2. 1258 1980 Unknown [id number] 2.16.840.1.870496.3.579.2. 1258 1980 Unknown [id number] 2.16.840.1.434375.3.579.2. 1258 1980 Unknown [id number] 2.16.840.1.218791.3.579.2. 1258 1980 Unknown [id number] 2.16.840.1.522600.3.579.2. 1258 1980 Unknown [id number] 2.16.840.1.408866.3.579.2. 9 1959 Unknown [id number] 1959 Unknown [id number] Unknown [id number] 2.16.840.1.026658.3.579.2. 531 Unknown [id number] 2.16.840.1.802780.3.579.2. 531 Unknown [id number] 2.16.840.1.621098.3.579.2. 531 Unknown [id number] 2.16.840.1.116927.3.579.2. 531 Social History Date Type Detail Facility Start: 05-24-1995 End: 11-08-2023 Tobacco smoking status ALIS Current every day smoker [facility] Start: 10-07-2020 End: 11-08-2023 Tobacco use and exposure Never used [facility] Start: 10-07-2020 End: 02-14-2025 Alcohol intake Lifetime non-drinker (finding) [facility] Phone: Start: 10-07-2020 History SDOH Alcohol Frequency 1 [facility] Phone: Start: 1980 Sex Assigned At Not on file [employer] Work Phone: Start: 02-22-2022 End: 07-26-2024 Exposure to SARS-CoV-2 (event) Not sure [facility] Start: 05-24-1995 History of tobacco use Cigarette Smo ker [facility] Start: 05-31-2014 End: 11-23-2024 Cigarettes smoked current (pack per day) - Reported 1 [facility] Start: 10-24-2021 End: 11-29-2024 Alcohol intake Current non-drinker of alcohol (finding) [facility] Start: 10-14-2021 End: 10-24-2021 Exposure to SARS-CoV-2 (event) Unable to assess [facility] Start: 10-22-2022 End: 11-23-2024 Sex Assigned At [facility] Start: 05-31-2014 Adult Depression Screening Assessment 1 [facility] Start: 10-19-2022 Tobacco Comment Current smoker , everyday, 11-20 cigarettes/day [facility] Start: 05-31-2023 Alcohol Comment Caffeine intak e : > 4 cups per day [facility] Start: 08-19-2016 End: 12-16-2023 Tobacco smoking status NHIS Smoker (finding) [facility] Start: 1980 Sex Assigned At Female F [facility] Start: 07-02-2016 End: 08-22-2024 Sex Female (finding) [facility] Start: 02-21-2024 Gender identity Identifies as female gender (finding) [facility] Goals Date Patient Goal Desired Activity /State Functional Status Date Assessment Result Facility 12-25-2014 Are you deaf, or do you have serious difficulty hearing No 12/25/2014 11:14 AM Chichi Womack Ma No [facility] 12-25-2014 Are you blind, or do you have serious difficulty seeing, even when wearing glasses No 12/25/2014 11:14 AM Chichi Womack Ma No [facility] 12-25-2014 Do you have serious difficulty walking or climbing stairs Yes 12/25/2014 11:14 AM Chichi Womack Ma Yes [facility] 12-25-2014 Do you have difficul ty dressing or bathing Yes 12/25/2014 11:14 AM EDT Chichi Zarco Ma Yes [facility] 12-25-2014 Because of a physica l, mental, or emotional condition, do you have difficulty doing errands alone such as visiting a physician's office or shopping No 12/25/2014 11:14 AM EDT Chichi Zarco Ma [facility] Mental Status Date Assessment Result Facility 12-25-2014 Because of a physica l, mental, or emotional condition, do you have serious difficulty concentrating, remembering, or making decisions No 12/25/2014 11:14 AM EDT Chichi Zarco Ma [facility] Clinical Notes 05-31-2014 to 02-21-2025 Bernabe English MD - 02/14/2025 3:20 PM EDTRohreElena nelson RN - 01/24/2025 3:40 PM EDTTelephone Encounter - Merry Chairez RN - 01/18/2025 5:09 PM EDJhonathan Saunders RN - 12/14/2024 3:58 PM EDT Note Date & Type Note Facility 02-21-2025 Note [place] 02-21-2025 Note [place] 02-14-2025 History of Presen t illness Narrative [...] Visit: as scheduled documented in this encounter [facility] 01-24-2025 Note [place] 01-24-2025 History of Presen t illness Narrative Pt did not receive B12 injection today. Pt called & agreeable to receive it when she returns in 2 weeks for her Benlysta infusion. Pharmacy aware and moving date. Elena Alfonso RN documented in this encounter [facility] 01-18-2025 Telephone encounter Note MC message read by patient . [facility] 01-18-2025 Miscellaneous Notes MC message read by [...] start prior authorization documented in this encounter [facility] 01-18-2025 Telephone encounter Note Please Call patient [...] sq benlysta to IV, start prior authorization [facility] 12-14-2024 Note HNO ID: [id number] Author: JHONATHAN VALE RN Service: ? Author Type: Registered Nurse Type: Progress Notes Filed: 12/14/2024 16:36 Note Text: Ran over 2 hours per patient request. [place] 12-14-2024 History of Presen t illness Narrative Ran over 2 hours per patient request. documented in this encounter [facility] 12-14-2024 Note [place] 12-14-2024 History of Presen t illness Narrative CMN RECEIVED BY [employer] [facility] VIA FAX, COMPLETED, AND PLACED IN PROVIDER MAILBOX FOR SIGNATURE Ama Esparza [employer] SENDING CMN: Josh SIGNED AND DATED CMN, FAXED TO DME & CONFIRMATION PAGE RECEIVED: 12.14.2024 documented in this encounter [facility] 11-30-2024 Evaluation note Diagnosis Onset Date Resolution [...] Sept2024 9:23am Sacroiliitis acute February 142024 9:23am [facility] Work Phone: 1([phone]) 168-879707-10-2025 Telephone encounter Note* Telephone Encounter - Enma Hamm RN - 11/30/2024 8:36 AM EDT Pt updated on results. Will continue with IVIG, as previously scheduled. Denied further needs or concerns at this time. Enma Hamm RN [facility]07-10-2025 Miscellaneous Notes* Telephone Encounter - Enma Hamm RN - 11/30/2024 8:36 AM EDT Pt updated on results. Will continue with IVIG, as previously scheduled. Denied further needs or concerns at this time. Enma Hamm RN documented in this encounterL[facility]07-09-2025 [place] History of Present illness Narrative* Vaibhav Carvalho APRN.TRUE - 11/29/2024 8:43 AM EDT Images from the original note were not included. NAME: TeraAriadna [facility] NO.: [id number] DATE OF SERVICE: .November 29, 2024 (Deven) [...] to monitor; no current intervention required per [facility] recommendations. 7. Pre-diabetes (R73.03) Borderline diabetic. Previously [...] requiring a recent corticosteroid injection by her softlines supervisor. She experiences intermittent fatigue, shortness of breath, [...] lower lip done 2 days ago at [facility] - awaiting results. B12 helps [...] injections. 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 She has been told they [...] subcutaneously one time a week. Per PCP [id number] (BMX 1:1:1) 1:1:1 liqd Take 5 mL [...] (Crohn's [Other]) Mother . Vaibhav Carvalho APRN, GEROPSYCHOLOGIST-C, [facility] Provided at: [place], [place] CC: Manuel Ferris MD [id number] [facility] [id number] documented in this encounterL[facility]07-[facility] History of Present illness Narrative* KELVIN Pope [...] Next Visit: as scheduled [id number] Telephone encounter Note* Telephone Encounter - Renea Schneider MA - 11/20/2024 12:00 PM EDT Patient coming in for treatment visit Wednesday11/29/24. Please add lab orders. thanks. Renea Schneider MA [facility]06-23-2025 Chief complaint+Reason for visit Narrative* Chief Complaint [...] :29am Sacroiliitis January 17, 2025 10 :29am [facility] Work Phone: 1([phone]) 272-246806-23-2025 Chief complaint+Reason for visit Narrative * Chief [...] :29am Sacroiliitis January 17, 2025 10 :29am [facility] Work Phone: 1(134) 612-830706-23-2025 Evaluation note* Diagnosis Onset Date Resolution Status [...] 10:29am Sacroiliitis acute January 17, 2025 10:29am [facility] Work Phone: 1(817) 462-253105-17-2025 History of Present illness Narrative* Lynne Ni [...] visit. 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 bmd, take vitamin D script if [...] neurology/on metoprolol for POTs, avoid aggravating triggers, usp pain recommendations per primary care provider/pain clinic/patient [...] neurology/on metoprolol for POTs, avoid aggravating triggers, usp pain recommendations per primary care provider/pain clinic/patient [...] COVID-19 original vaccine, age 12+ yr, monovalent ([employer] - PURPLE TOP) 09/28/2020 10/19/2020 05/26/2021 COVID-19 vaccine, age 12+ yr ([employer] COMIRNATY) 02/23/2023 COVID-19 vaccine, age 12+ yr, bivalent ([employer]) 02/08/2022 Pneumovax no Flu shot no Tetanus [...] (33);NL cbc, cmp, negative hla b27; [place] 06/2021 low vitamin D 16, vitamin b12-307;high [...] negative Sumaya's test, tinel's and phil tests [facility] JTS:no Tend. 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 reStart azathioprine [...] touching your toes, sit-ups, using row machine usp pain recommendations per primary care provider/pain clinic [...] video & audio (virtual) or phone or [id number] patient care, completing clinical documentation, obtaining and/or [...] Workers' Compensation? No Do you need an small products assembler? No [facility] MYCHART ZOOM MESSAGE Question 10/06/2024 [...] my health Strongly Agree documented in this encounterLake[facility]05-17-2025 [place]05-17-2025 Instructions* Patient Instructions* Lynne Ni MD - [...] (200mg) daily with a meal Please see ocean export account manager every 6-12months while on Hydroxychloroquine. azathioprine [...] touching your toes, sit-ups, using row machine usp pain recommendations per primary care provider/pain clinic [...] your usual activities immediately. documented in this encounterLake[facility]05-16-2025 Telephone encounter Note * Telephone Encounter - Beatriz Sanchez LPN - 10/06/2024 1:46 PM EDT VM left that below message forwarded to her MC. Requested return call if unable to view message. [facility]05-16-2025 Miscellaneous Notes* Telephone Encounter - Beatriz Sanchez LPN - 10/06/2024 1:46 PM EDT AGUSTÍN left that below message forwarded to her MC. Requested return call if unable to view message. * Telephone Encounter - Lynne Ni MD - 10/06/2024 1:02 PM EDT Please Call patient if [address] note not read to review results/released to My Chart if tests completed at [facility]: Mildly glucose, one borderline inflammatory test- care [...] accordingly. Lynne Ni MD documented in this encounterLake[facility]05-16-2025 Telephone encounter Note * Telephone Encounter - [...] above. Please process accordingly. Lynne Ni MD [facility]04-30-2025 [place]04-30-2025 Note [place]04-29-2025 History of Present illness Narrative* Deborah Arroyo [facility] - 09/19/2024 10:00 AM EDT Patient [...] GENETIC TESTING: None. SOCIAL HISTORY: Lives in [place], [place] with her and daughter. Employment: [employer] Level of education: high school Alcohol/cigarettes/other: tobacco- smokes 1ppd since teens; EtOH- denied; illicit drug use- denied FAMILY HISTORY: - Patient's ethnicity: Maternal - ; Paternal - . - Partner's ethnicity: not applicable. - No known -[place] Islander, Mediterranean, /Scottish, Indian-Togolese/Cajun, or Ashkenazi Christian ancestry unless noted above. - Parental consanguinity: [...] via the connective tissue disorder panel at [facility] for Ariadna's daughter. Follow up [...] greater than 50% of which was spent [id number] counseling. This plan is being carried out per Dr. Lance's recommendations. Deborah Arroyo MS, [facility] Licensed Genetic Counselor [facility] CC: Dr. Last Lance CC: Ariadna Haley Via [employer] documented in this encounterLakehealth [facility] Center04-29-2025 [place]04-29-2025 [place]04-29-2025 History of Present illness Narrative* Ny Lance MD - 09/19/2024 7:46 AM EDT Images from the original note were not included. Department of Medical Genetics and Genomics OUTPATIENT NEW VISIT NOTE Recording using Carbonite software for draft documentation of the visit was discussed with the patient/authorized medical service representative; all questions welcomed and answered. Patient/authorized medical service representative agreed to proceed Patient Name: Ariadna [...] has a history of using a palate rod bending machine operator. 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 Per PCP vpgupwotptGOAVA-efqkll-moppvgouy (BMX 1:1:1) 1:1:1 liqd Take 5 mL [...] OF ablation SOCIAL HISTORY: - Lives in [place], [place] with her and daughters. - Highest level of education: High school. 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 Paternal - . - No known -[place] Islander, Mediterranean, /Scottish, Ashkenazi Christian, Indian-Togolese/Cajun, or Maxwell ancestry unless noted above. - [...] encounter. The pedigree will be scanned into [employer]. This information was reviewed with thefamily and [...] Management For Physiotherapists by Katarina Reza (Eds.), [facility], 2003, ISBN [phone]; Examination and Treatment of a Patient with [...] symptoms when present, recommending follow-up with a manager wind. 2. Chronic pain syndrome (G89.4) Chronic joint [...] 87 minutes was spent with patient for kujp-jg-hbcb evaluation, discussion of genetic differential diagnoses, management plan, counseling, chart review, documentation and coordination of care. Portions of family history were obtained by Deborah Arroyo MS, [facility], which were reviewed with family and edited as necessary. All questions were answered to the best of my knowledge. Contact information has been provided to the patient. Ny Lance MD Staff Lcsw Department of Medical Genetics and Genomics (DM) [facility] Appointments: [facility] CC: Deborah Arroyo MS, [facility] Ariadna Haley (via MyChart) [address] [facility] [address] Lynne Ni MD CC to PCP via fax: Manuel Ferris [address] [place] [address] documented in this encounterLake[facility]04-28-2025 Telephone encounter Note * Telephone Encounter - Lynne Ni MD - 09/18/2024 4:52 PM EDT Notify patient medication sent as requested Thank you. Patient's request for medication is as follows: Requested Prescriptions Pending Prescriptions Disp Refills belimumab (BENLYSTA) 200 mg/mL auto-injector 12 mL 3 Sig: Inject 200mg (1 pen) subcutaneously once weekly Prescription(s) as above. Please process accordingly. Lynne Ni MD [facility]04-28-2025 Miscellaneous Notes* Telephone Encounter - Lynne Ni [...] MD * Telephone Encounter - Pamella Pichardo [facility] - 09/18/2024 10:52 AM EDT Patient needs refill of Benlysta Date of Ariadna Haley's last Rheumatology office visit: 03/18/24 Next appointment date: 10/07/24 Last labs: 08/29/24 Last TB test: TB Result Date Value Ref Range Status 03/23/2024 Negative Final Requested Prescriptions Pending Prescriptions Disp Refills belimumab (BENLYSTA) 200 mg/mL auto-injector 12 mL 3 Sig: Inject 200mg (1 pen) subcutaneously once weekly Patient prefers: [facility] Thank you! Maria Esther Pichardo, PharmD Clinical Pharmacist, [employer] [facility] ; Pool: P [facility] Pool #: [id number] documented in this encounterLakehealth Tripoint Medical Center04-28-2025 Telephone encounter Note * Telephone Encounter - Macarena Sanchez - 09/18/2024 4:03 PM EDT Patient will be calling to reschedule her IV IG and benlysta. She needs to find a finish photographer and will call back with the dates that she will be available. [facility]04-28-2025 Miscellaneous Notes* Telephone Encounter - Macarena Sanchez - 09/18/2024 4:03 PM EDT Patient will be calling to reschedule her IV IG and benlysta. She needs to find a finish photographer and will call back with the dates that she will be available. documented in this encounterLakehealth [facility] Center04-28-2025 Telephone encounter Note * Telephone Encounter - [...] (1 pen) subcutaneously once weekly Patient prefers: [facility] Thank you! Maria Esther Pichardo, PharmD Clinical Pharmacist, [employer] [facility] ; Pool: P [facility] Pool #: [id number] [facility]04-22-2025 Telephone encounter Note* Telephone Encounter - Karina Pino - 09/12/2024 2:35 PM EDT Patient has been scheduled at [facility]04-22-2025 Miscellaneous Notes* Telephone Encounter - Karina Pino [...] below scheduling for the drug. Cesilia Hicks [facility] You25 minutes ago (11:20 AM) LS Please schedule her every 2 weeks for 3 doses, then every 4 weeks for Benlysta. Thanks, Cesilia Holman [facility] You27 minutes ago (11:18 AM) LS Christen [...] Rheum provider. Anahi Becerril RN nurse manager wireless: patient would like to know [facility] 8 [facility] Basia Samuel RN documented in this encounterLakehealth [facility]point [facility] Center04-22-2025 Telephone encounter Note * Telephone Encounter - Sherrie Cortes - 09/12/2024 2:13 PM EDT Patient called back and is now in agreement to schedule for Benlysta. Patient has been scheduled for Wednesday, 09/18. She will make her future appointments at this visit when she can work around her family arrangements. Spoke w/ T Wyatt regarding daughter recommendations and patient informed. Sherrie Cortes [facility]04-21-2025 Telephone encounter Note* Telephone Encounter - Sherrie [...] below scheduling for the drug. Cesilia Hicks [facility] You25 minutes ago (11:20 AM) Please schedule her every 2 weeks for 3 doses, then every 4 weeks for Benlysta. Cesilia Vicente Laura [facility] You27 minutes ago (11:18 AM) LS Auth is submitted and pending - okay to set her up 7+ days out. When you call her ask her when she had her last SQ dose, per the provider okay to schedule the IV dose 1 week after her SQ dose. ThanksCesilia [facility]04-17-2025 Telephone encounter Note* Telephone Encounter - Lynne Ni MD - 09/07/2024 12:52 PM EDT Please start prior authorization for IV benlysta Signed therapy plan with loading doses if approved by insurance. May schedule 1week after last sq injection benlysta pen if approved. Thank you [facility]04-17-2025 Telephone encounter Note* Telephone Encounter - Enma Hamm RN - 09/07/2024 9:04 AM EDT Results discussed with pt. She is set for IVIG 10/04/24. She denies further questions needs or concerns at this time. Enma Hamm RN [facility]04-17-2025 Miscellaneous Notes* Telephone Encounter - Enma Hamm RN - 09/07/2024 9:04 AM EDT Results discussed with pt. She is set for IVIG 10/04/24. She denies further questions needs or concerns at this time. Enma Hamm RN documented in this encounterLakehealth [facility]point Medical Center04-16-2025 Evaluation note* Diagnosis Onset Date Resolution Status Admit Date Lumbosacral spondylosis acute A pril 2024 3:42pm Other chronic pain acute September 06, 2024 3:42pm Sacroiliitis acute September 06, 2024 3:42pm Lumbosacral spondylosis acute J une 2024 11:15am Other chronic pain acute October 232024 11:15am Sacroiliitis acute November 13 11:15am [facility] Work Phone: 1(537) 583-657404-16-2025 Evaluation note* Diagnosis Onset Date Resolution Status [...] 212024 9:03am Sacroiliitis acute November 30 9:03am [facility] Work Phone: [phone] Telephone encounter Note* Telephone Encounter - Basia Samuel RN - 09/06/2024 4:20 PM EDT Patient has requested to switch from Benlysta injections to infusions. Will forward to Rheum provider. Anahi Becerril RN nurse manager wireless: patient would like to know if she can bring her 8 year old to treatmentsin the summer. Basia Samuel RN [facility]04-16-2025 History of Present illness Narrative* DevenMarvelVaibhavMAURILIO.SPORTS MANAGEMENT INTERN - 09/06/2024 9:00 AM EDT Images from the original note were not included. NAME: Ariadna Haley CLINIC NO.: [id number] DATE OF SERVICE: September 06, 2024 (Deven) [...] lower lip done 2 days ago at [facility] - awaiting results. B12 helps [...] injections. 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 She has been told they [...] THREE TIMES A DAY^Disp: 135 tablet^Rfl: 1 tlobidwbebFYITD-cksvqa-zbhmtxntp (BMX 1:1:1) 1:1:1 liqd^Take 5 mL by [...] (Crohn's [Other]) Mother . Vaibhav Carvalho APRN, GEROPSYCHOLOGIST-C, [facility] Provided at: [place], [place] CC: Manuel Ferris MD [address] [facility] [address] documented in this encounterLakehealth [facility]point Medical Center04-16-2025 [place]04-14-2025 History of Present illness Narrative* Gordo Barfield MD - 09/04/2024 3:20 PM EDT Subjective Patient ID: Ariadna Haley is a 43 y.o. female who presents for Thyroid Nodule (Follow up ultrasound [facility] 08/24/24) Thyroid US shows a [id number] left inf pole TR4 nodule. Radiology notes no sig change Family History Problem Relation Name Age of Onset Crohn's disease Mother Ineves Thyroid disease Mother Nieves Stomach cancer Father [...] 03/05/2021 Hair loss 03/05/2021 Hyperlipidemia (CMS/HCC) 05/31/2014 [facility] 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 02/04/2023 Long-term use of high-risk medication 06/15/2022 Long-term use of Plaquenil 03/05/2021 LPRD (laryngopharyngeal reflux disease) 07/06/2023 Megaloblastic anemia due to vitamin B12 deficiency 03/04/2022 Myalgia 07/06/2023 Obesity, Class III, BMI 40-49.9 (morbid obesity) ([facility]) 09/07/2022 Obstructive sleep apnea syndrome 05/20/2022 Oral lesion 07/06/2023 Pain, hip 07/06/2023 Rash and nonspecific skin eruption 03/05/2021 Steroid-induced osteoporosis ([facility]) 02/04/2023 Somnolence, daytime 05/20/2022 Secondary osteoarthritis of multiple sites 03/05/2021 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 02/04/2023 Swelling of lymph nodes 03/05/2021 Vitamin D deficiency 03/06/2021 Vitamin B12 deficiency 05/31/2014 Pure hypercholesterolemia, unspecified ([facility]) 08/10/2023 Hoarse 08/10/2023 Thyroid nodule ([facility]) 08/10/2023 Shortness of breath 07/13/2023 Paroxysmal supraventricular tachycardia ([facility]) 07/13/2023 PAC (premature atrial contraction) 07/13/2023 Degenerative disc disease, lumbar 11/08/2023 Paresthesias 11/08/2023 Nipple discharge 11/15/2023 Irregular periods/menstrual cycles 11/15/2023 Facet arthritis of lumbar region 12/15/2023 Prediabetes 08/24/2023 C. difficile diarrhea 03/07/2024 Diarrhea 03/07/2024 Duct ectasia of breast 03/07/2024 Frequent infections 04/01/2024 GERD (gastroesophageal reflux disease) 03/07/2024 History of vitamin D deficiency 10/05/2023 Hypogammaglobulinemia ([facility]) 04/01/2024 Insulin resistance 03/07/2024 Lupus erythematosus 04/06/2024 Sacroiliitis ([facility]) 04/06/2024 Resolved Ambulatory Problems Diagnosis Date Noted No Resolved Ambulatory Problems Past Medical History: Diagnosis Date Cervical lymphadenopathy COVID-19 vaccine administered Difficulty walking Fatigue Fibromyalgia, primary History of removal of cyst 2012 HTN (hypertension) ([facility]) Hx of abnormal cervical Pap smear [...] % gel ergocalciferol (Vitamin D2) 1.25 MG (58351 UT) capsule Take 50,000 Units by mouth [...] for more aggressive care documented in this encounterSoutheast Missouri Community Treatment CenterCsyavazrkc22-05-5540 Telephone encounter Note* Telephone Encounter - Blank Kimball - 09/02/2024 10:28 AM EDT Called and spoke with patient, patient is scheduled for a VV on 10/07/24 at 8:00am. Patient stated will complete labs a walk in [facility]04-12-2025 Miscellaneous Notes* Telephone Encounter - Blank Kimball [...] diagnoses: Vitamin D deficiency documented in this encounterLakehealth [facility]point Medical Center04-11-2025 Telephone encounter Note * Telephone Encounter - [...] above. Please process accordingly. Lynne Ni MD [facility]04-11-2025 Telephone encounter Note* Telephone Encounter - Cora [...] [SQCBC] 10/06/24 07/09/25 07/09/24 Auth. provider: Lynne iN MD Assoc. diagnoses: Anemia of chronic disease [...] Ni MD Assoc. diagnoses: Vitamin D deficiency [facility]04-07-2025 Telephone encounter Note* Telephone Encounter - Renea Schneider MA - 08/28/2024 11:04 AM EDT Do you want labs? Patient coming in Wednesday09/06/24 for follow up treatment. Thanks, Renea Schneider MA [facility]04-01-2025 Miscellaneous Notes* Telephone Encounter - Renea Schneider MA - 08/28/2024 11:04 AM EDT Do you want labs? Patient coming in Wednesday09/06/24 for follow up treatment. Thanks, Renea Schneider MA documented in this encounterLakehealth [facility]point Medical Center04-01-2025 Miscellaneous Notes* Telephone Encounter - Renea Schneider MA - 11/20/2024 12:00 PM EDT Patient coming in for treatment visit Wednesday11/29/24. Please add lab orders. thanks. Renea Schneider MA documented in this encounterLakehealth [facility]point Medical Center03-27-2025 [place]Cent[place]03-18-2025 Telephone encounter Note* Telephone Encounter - Basia [...] and patient is aware. Basia Samuel RN [facility]03-18-2025 Miscellaneous Notes* Telephone Encounter - Basia Samuel [...] aware. Basia Samuel RN documented in this encounterLakehealth [facility]point Medical Center03-18-2025 [place]Cent[place]03-18-2025 History of Present illness Narrative* Basia Samuel RN - 08/08/2024 9:03 AM EDT Patient states that she spoke with provider and she will defer IV iron for now, she is taking oral iron and will have labs rechecked in 1 month Basia Samuel RN documented in this encounterLakehealth Tripoint Medical Center03-05-2025 History of Present illness Narrative* Lois Holm [...] treated by rheumatology at the [facility] on steroids, Plaquenil and monoclonal antibody [...] , Rfl: ergocalciferol (Vitamin D-2) 1.25 MG (15128 UT) capsule, Take 1 capsule (50,000 Units) [...] exam, discussion and plan. documented in this [facility] Work Phone: 1(595) 214-672803-05-2025 Instructions* Patient Instructions* Aissatou Hanson RN - [...] time of your visit. documented in this [facility] Work Phone: 1(735) 123-206503-04-2025 History of Present illness Narrative* Bernabe English [...] ointment bid. On Plaquenil and Benlysta from multicraft operator and started IVIG from wireless store manager. Follow up Diagnosis: Hidradenitis Location: thighs Last [...] given frequent flares of thrush. Start Nystatin 152501 unit suspension qid x 14 days. Recommended [...] not swallow it. Related Medications nystatin (Mycostatin) 222697 UNIT/ML suspension Take 4 mL (400,000 Units) [...] is needed. Instructed to follow up with ARMOR SENIOR SERGEANT for further work up. Next Visit: 1 year documented in this encounterSoutheast Missouri Community Treatment CenterCrqnbtnzom07-90-1918 History of Present illness Narrative* Luna Emanuel [...] been reviewed prior to dispensing the medication. Or Scrub Tech Assessment Patient confirmed: Yes Med/dose confirmed: Yes Supplies needed: No supplies needed Missed doses: No Copay amount: 0 Payment confirmed: Yes Delivery method: FedEx Signature required: Waived on patient request Delivery address: [address] [place] [address], [facility] [address] Delivery date: 07/27/24 Questions or concerns for the pharmacist?: No Did you have any side effects believed to be related to this medication, that resulted in hospitalization?: No Current Outpatient Medications on File Prior to Visit Medication Sig piwwhdnnfwOVZIK-touzlw-dsvirmcwj (BMX 1:1:1) 1:1:1 liqd Take 5 mL [...] on file prior to visit. [facility] RX SPECIALTY CLINICAL ASSESSMENT - INFLAMMATORY [...] longer tolerated. Luna Emanuel documented in this encounterLakehealth [facility]point Medical Center03-04-2025 NoteCent[place]02-27-2025 NoteHNO ID: [id number] Author: ALHAJI HEAD, DO Service: ? Author Type: Physician Type: Progress Notes Filed: 07/21/2024 13:05 Note Text: VIRTUAL VISIT PROGRESS NOTE This is a virtual visit using Strobeom Video Visit. It required patient-provider interaction for the medical decision making as documented below. I have communicated my name and active licensure. The patient's identity and physical location were verified at the time of this visit. Either the patient or their legal medical service representative has been informed of the [...] of 18 Current Outpatient Medications Medication Sig tqtiiknevrUESBH-kjtxue-numgcjxst (BMX 1:1:1) 1:1:1 liqd Take 5 mL [...] WHILE ON* belimumab ( (more content not included)...[facility]02-27-2025 History of Present illness Narrative* Alhaji Head DO - 07/20/2024 11:41 AM EST VIRTUAL VISIT PROGRESS NOTE This is a virtual visit using PeeplePass Zoom Video Visit. It required patient- provider interaction for the medical decision making as documented below. I have communicated my name and active licensure. The patient's identity and physical location wereverified at the time of this visit. Either the patient or their legal medical service representative has been informed of the [...] of 18 Current Outpatient Medications Medication Sig jbdtjjgeioCJJJA-gocjdc-idrkodwcx (BMX 1:1:1) 1:1:1 liqd Take 5 mL [...] on the R. The patient or authorized medical service representative has agreed to proceed with [...] axillary nodule which is being followed by mortgage loan originator. Through shared decision making with the patient, [...] DO July 21, 2024 documented in this encounterLakehealth Tripoint Medical Center02-26-20[place] [address] Pain Management Procedure Note Signed Patient: Ariadna Haley MR#: [id number] : 1980 Acct:[id number] Age/Sex: 43 / F Adm Date: Loc: Room: Type: [facility] Attending Dr: Adolfo Kang MD Copies [...] MD 07/19/24 1104 Signed By: 07/19/24 1134 [facility]02-19-2025 Instructions* Patient Instructions* Marky Barnes PA-C - 07/12/2024 2:33 PM EST Alginate therapy (Reflux Raft, Reflux Gourmet) documented in this encounterLakehealth Tripoint Medical Center02-19-2025 NoteCent[place]02-19-2025 History of Present illness Narrative* Marky Barnes PA-C - 07/12/2024 2:14 PM EST Images from the original note were not included. [facility] NOTE CC: Ariadna Haley is a [...] Current medication(s): Current Outpatient Medications Medication Sig gdcddvyrtbSCDZX-sprmoh-mpynohezk (BMX 1:1:1) 1:1:1 liqd Take 5 mL [...] Level: 3 - Low documented in this encounterLakehealth Tripoint Medical Center02-17-2025 Evaluation note* Diagnosis Onset Date Resolution Status Admit Date Lumbosacral spondylosis acute F ebruary 2024 3:16pm Other chronic pain acute Februa ry 2024 3:16pm Sacroiliitis acute June 3:16pm [facility] Work Phone: 1(944) 534-664202-17-2025 Evaluation note* Diagnosis Onset Date Resolution Status Admit Date Lumbosacral spondylosis acute F ebruary 2024 3:16pm Other chronic pain acute Februa ry 2024 3:16pm Sacroiliitis acute June 3:16pm Lumbosacral spondylosis acute M 2024 3:40pm Other chronic pain acute July 31, 2024 3:40pm Sacroiliitis acute July 31, 2024 3:40pm [facility] Work Phone: 1(308) 656-278002-17-2025 Telephone encounter Note* Telephone Encounter - Krista Braswell MA - 07/10/2024 7:28 AM EST Pt was notified via . [facility]02-17-2025 Miscellaneous Notes* Telephone Encounter - Krista Fonseca MA - 07/10/2024 7:28 AM EST Pt was notified via . * Telephone Encounter - Lynne Ni MD - 07/09/2024 3:48 PM EST Please Call patient if MyChart note not read to review results/released to My Chart if tests completed at [facility]: Mildly high normal wbc, glucose, one borderline [...] accordingly. Lynne Ni MD documented in this encounterLakehealth Tripoint Medical Center02-16-2025 Telephone encounter Note * Telephone [...] above. Please process accordingly. Lynne Ni MD [facility]02-06-2025 History of Present illness Narrative* [...] been reviewed prior to dispensing the medication. Or Scrub Tech Assessment Patient confirmed: Yes Med/dose confirmed: Yes Supplies needed: No supplies needed Missed doses: No Estimated days supply on hand: 1 Copay amount: 0 Payment confirmed: Yes Delivery method: FedEx Signature required: Waived on patient request Delivery address: [address] [place] [address] Delivery date: 07/05/24 Questions or concerns for [...] on file prior to visit. [facility] RX SPECIALTY CLINICAL ASSESSMENT - INFLAMMATORY [...] longer tolerated. Luna Emanuel documented in this encounterLakehealth [facility]point Medical Center02-06-2025 NoteCent[place]01-31-2025 Telephone encounter Note* Telephone Encounter - Krista Fonseca MA - 06/23/2024 8:27 AM EST Pt has been notified via POPVOX. [facility]01-31-2025 Miscellaneous Notes* Telephone Encounter - Krista Fonseca MA - 06/23/2024 8:27 AM EST Pt has been notified via POPVOX. * Telephone Encounter - Lynne Ni MD [...] accordingly. Lynne Ni MD documented in this encounterLakehealth Tripoint Medical Center01-30-2025 Telephone encounter Note * Telephone [...] above. Please process accordingly. Lynne Ni MD [facility]01-29-2025 Telephone encounter Note* Telephone Encounter - Sherrie Cortes - 06/21/2024 2:10 PM EST Thanks for the clarification! I didn't schedule the patient yet for Iron because of the question below so we are all good. Thank you! Sherrie Cortes [facility]01-29-2025 Miscellaneous Notes* Telephone Encounter - [...] we will recheck. thanks documented in this encounterLakehealth Tripoint Medical Center01-29-2025 Telephone encounter Note * Telephone [...] is aware you will call if needed. [facility]01-29-2025 Telephone encounter Note* Telephone Encounter - Vaibhav Carvalho APRN.CNP - 06/21/2024 1:07 PM EST Ok that is fine she can try oral iron Ferrous sulfate 325 mg every other day. Ok to keep her next appointment and we will recheck. thanks [facility]01-28-2025 Telephone encounter Note* Telephone Encounter - Sherrie Cortes - 06/20/2024 8:38 AM EST Left another message for patient. Sent MyChart to call back to schedule infusions when she's ready to schedule and provided phone number. Sherrie Cortes [facility]01-28-2025 Miscellaneous Notes* Telephone Encounter - [...] callback with any questions. documented in this encounterLakehealth Tripoint Medical Center01-24-2025 Telephone encounter Note * Telephone Encounter - Sherrie Cortes - 06/16/2024 3:32 PM EST Call placed to patient, no answer. Left detailed message to call back to schedule for Venofer. Sherrie Cortes [facility]01-24-2025 Telephone encounter Note* Telephone Encounter - Vaibhav Carvalho APRN.CNP - 06/16/2024 12:26 PM EST Called patient and left a message regarding iron infusions. I did inform patient that she is low oniron and we can replace with IV infusion. Will have the office call to schedule. Encouraged to callback with any questions. [facility]01-23-2025 Telephone encounter Note* Telephone Encounter - KELVIN Cbarera - 06/15/2024 11:18 AM EST Called and [...] Pt had recent mammogram that was negative [facility] [id number] Miscellaneous Notes* Telephone Encounter - KELVIN Cabrera [...] mammogram that was negative documented in this encounterSoutheast Missouri Community Treatment CenterCimbdmhtcu07-53-1942 History of Present illness Narrative* Iraida Pate APRN.CNP - 06/14/2024 10:43 AM EST Glucose - SIBO CPT 58492 Hydrogen Breath Test Ariadna Torres Tera 1980 June 14, 2024 Referring Physician: Bandar Portillo NP Indication: NSG TEST INDICATIONS: Diarrhea R19.7, Abdominal Pressure R10.9 Weight: 275 lbs Location: [facility] Duration of Test: 2 hrs Hydrogen Methane [...] Test Results: negative Physician Signature: Iraida Pate APRN.SPORTS MANAGEMENT INTERN documented in this encounterLakehealth Tripoint Medical Center01-21-2025 Progress note* [facility] - [...] 13, 2024 TIME: 10:29 AM PAGER/CONTACT #: [facility]01-21-2025 Miscellaneous Notes* [facility] - Dionne Driver, [...] 10:29 AM PAGER/CONTACT #: documented in this encounterLakehealth Tripoint Medical Center01-21-2025 [place]01-21-2025 History of Present illness Narrative* Vaibhav Carvalho APRN.SPORTS MANAGEMENT INTERN - 06/13/2024 9:07 AM EST Images from the original note were not included. NAME: Ariadna Haley [facility] NO.: [id number] DATE OF SERVICE: June 13, 2024 (Deven) [...] lower lip done 2 days ago at [facility] - awaiting results. B12 helps [...] injections. 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 She has been told they [...] (Crohn's [Other]) Mother . Vaibhav Carvalho APRN, GEROPSYCHOLOGIST-C, [facility] Hematology and Oncology Services Provided at: [place], [place] CC: Manuel Ferris MD [address] [facility] [address] documented in this encounterLakehealth Tripoint Medical Center01-20-2025 [facility]01-20-2025 History of Present illness Narrative* Lee Friedman - 06/12/2024 2:31 PM EST CMN RECEIVED BY [employer] VIA FAX, COMPLETED, AND PLACED IN PROVIDER MAILBOX FOR SIGNATURE Lee Friedman Coordinator III [employer] SENDING CMN: Josh SIGNED AND DATED CMN, FAXED TO DME & CONFIRMATION PAGE RECEIVED: 06.28.2024 documented in this encounterLakehealth Tripoint Medical Center01-20-2025 Telephone encounter Note * Telephone Encounter - Margret Cuenca MA - 06/12/2024 12:00 PM EST Patient has an OTV appointment on 06/13. Please place lab orders. Margret Cuenca MA [facility]01-20-2025 Miscellaneous Notes* Telephone Encounter - Margret Cuenca MA - 06/12/2024 12:00 PM EST Patient has an OTV appointment on 06/13. Please place lab orders. Margret Cuenca MA documented in this encounterLakehealth [facility]point Medical Center01-14-2025 History of Present illness Narrative* [...] been reviewed prior to dispensing the medication. Or Scrub Tech Assessment Patient confirmed: Yes Med/dose confirmed: Yes Supplies needed: No supplies needed Missed doses: No Estimated days supply on hand: 1 Copay amount: 0 Payment confirmed: Yes Delivery method: FedEx Signature required: Waived on patient request Delivery address: [address] [place] [id number] Delivery date: 06/08/24 Questions or concerns for [...] on file prior to visit. [facility] RX SPECIALTY CLINICAL ASSESSMENT - INFLAMMATORY [...] longer tolerated. Luna Emanuel documented in this encounterLakehealth Tripoint Medical Center01-14-2025 [place]Cent[place]01-14-2025 History of Present illness Narrative* KELVIN Cabrera - 06/06/2024 11:00 AM EST Images from the original note were not included. Reason for Appointment: Patient ID: Ariadna Haley is a 43 y.o. female who presents for [facility] Patient presents today for [...] Ambulatory Problems Diagnosis Date Noted Autoimmune disease ([facility]) 06/01/2023 Fibromyalgia 06/01/2023 Autonomic dysfunction 06/01/2023 [...] Cytomegalovirus infection (HCC) (CMS/HCC) 07/06/2023 Depression, recurrent (CMS/[facility]) 06/09/2023 Discoid lupus erythematosus (CMS/[facility]) 02/14/2022 Disturbance of skin sensation 07/06/2023 Elevated sed rate 03/05/2021 High total serum IgM 03/05/2021 Enthesopathy of hip region 07/06/2023 Essential hypertension (CMS/HCC) 06/09/2023 Excessive and frequent menstruation with irregular cycle 09/24/2022 Family history of Crohn's disease 03/05/2021 Hair loss 03/05/2021 Hyperlipidemia (CMS/HCC) 05/31/2014 [facility] 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 02/04/2023 Long-term use of high-risk medication 06/15/2022 Long-term use of Plaquenil 03/05/2021 LPRD (laryngopharyngeal reflux disease) 07/06/2023 Megaloblastic anemia due to vitamin B12 deficiency 03/04/2022 Myalgia 07/06/2023 Obesity, Class III, BMI 40-49.9 (morbid obesity) ([facility]) 09/07/2022 Obstructive sleep apnea syndrome 05/20/2022 Oral lesion 07/06/2023 Pain, hip 07/06/2023 Rash and nonspecific skin eruption 03/05/2021 Steroid-induced osteoporosis ([facility]/HCC) 02/04/2023 Somnolence, daytime 05/20/2022 Secondary osteoarthritis [...] Chronic laryngopharyngitis COVID-19 vaccine administered x 2 ([employer]) Difficulty walking Fatigue Fibromyalgia, primary GERD (gastroesophageal [...] behalf of: KELVIN Cabrera documented in this encounterSoutheast Missouri Community Treatment [id number] [facility]12-23-2024 History of Present illness Narrative* Deisy Jaime LSW - 05/15/2024 9:09 AM EST Patient's name appears on the [facility] First Time Treatment Report for a non- oncology treatment. No psychosocial assessment is indicated. BILL Rosenberg Goals of Care Advance Directives are not on file. documented in this encounterLakehealth Tripoint Medical Center12-20-2024 History of Present illness Narrative* [...] been reviewed prior to dispensing the medication. Or Scrub Tech Assessment Patient confirmed: Yes Med/dose confirmed: Yes Supplies needed: No supplies needed Missed doses: No Estimated days supply on hand: 1 Copay amount: 0 Payment confirmed: Yes Delivery method: FedEx Signature required: Waived on patient request Delivery address: [address] [place] [id number] Delivery date: 05/16/24 Questions or concerns for [...] on file prior to visit. [facility] RX SPECIALTY CLINICAL ASSESSMENT - INFLAMMATORY [...] longer tolerated. Luna Emanuel documented in this encounterLakehealth [facility]point Medical Center12-20-2024 [place]Cent[place]12-04-2024 Nurse Note* Radha Schofield MA - 04/26/2024 9:32 AM EST Patient Identification confirmed: yes. Injection given and documented on JUL per provider order. Radha Schofield MA [facility]12-04-2024 Nurse Note* Radha Schofield MA - 04/26/2024 9:32 AM EST Patient Identification confirmed: yes. Injection given and documented on JUL per provider order. Radha Schofield MA documented in this encounterLakehealth [facility]point Medical Center11-22-2024 Telephone encounter Note * Telephone Encounter - Gay Barnett - 04/14/2024 12:11 PM EST Patient coming in for a sibo breath test on Wednesday and has been on keflex for 3 days and needs to be on for ten so she will need to reschedule [facility]11-22-2024 Miscellaneous Notes* Telephone Encounter - Gay Barnett - 04/14/2024 12:11 PM EST Patient coming in for a sibo breath test on Wednesday and has been on keflex for 3 days and needs to be on for ten so she will need to reschedule documented in this encounterLakehealth [facility]point Medical Center11-19-2024 [place]11-18-2024 Miscellaneous Notes* Telephone Encounter - Sherrie Cortes [...] Please advise. Sherrie Cortes documented in this encounterLakehealth Tripoint Medical Center11-18-2024 Telephone encounter Note * Telephone Encounter - Sherrie Cortes - 04/10/2024 2:12 PM EST Patient requested this appointment be rescheduled for the end of April. She has been scheduled for 05/19, she is all set. Thank you! Sherrie Cortes [facility]11-18-2024 Telephone encounter Note* Telephone Encounter - Shantel Arce RPh - 04/10/2024 2:07 PM EST SUBQ products (eg, 20% [Cuvitru, Hizentra, Xembify]) or IM products (eg, 16% [GamaSTAN]) intravenously. It would depend upon insurance coverage and would be done as a retail prescription at designated insurance specialty pharmacy. Elpidio McKitrick, PharmD, BCOP [facility] Work Phone: [phone] Telephone encounter Note* Telephone Encounter - Enma [...] and pt is fine with that . Blaqnuita: please call to r/s 04/14 appt per pt request Enma Hamm RN [facility]11-18-2024 Telephone encounter Note* Telephone Encounter - Enma Hamm RN - 04/10/2024 12:54 PM EST Called to discuss with pt. She was researching online and found SCIG a weekly subq injection to give herself that is less dose, and has less side effects. Pharmacy/[facility]: please advise Enma Hamm RN [facility]11-18-2024 Telephone encounter Note* Telephone Encounter - Vera Najera MD - 04/10/2024 12:26 PM EST Really sorry - I don't recall the home infusion of IVIG - I think it is safer to give it to her in-house as IV so we can monitor infusion reactions. Sorry if I created a misunderstanding. [facility]11-18-2024 History of Present illness Narrative* Gordo Barfield [...] 03/05/2021 Hair loss 03/05/2021 Hyperlipidemia (CMS/HCC) 05/31/2014 [facility] 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 02/04/2023 Long-term use of high-risk medication 06/15/2022 Long-term use of Plaquenil 03/05/2021 LPRD (laryngopharyngeal reflux disease) 07/06/2023 Megaloblastic anemia due to vitamin B12 deficiency 03/04/2022 Myalgia 07/06/2023 Obesity, Class III, BMI 40-49.9 (morbid obesity) ([facility]) 09/07/2022 Obstructive sleep apnea syndrome 05/20/2022 Oral lesion 07/06/2023 Pain, hip 07/06/2023 Rash and nonspecific skin eruption 03/05/2021 Steroid-induced osteoporosis ([facility]) 02/04/2023 Somnolence, daytime 05/20/2022 Secondary osteoarthritis of multiple sites 03/05/2021 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 02/04/2023 Swelling of lymph nodes 03/05/2021 Vitamin D deficiency 03/06/2021 Vitamin B12 deficiency 05/31/2014 Pure hypercholesterolemia, unspecified (CMS/[facility]) 08/10/2023 Hoarse 08/10/2023 Thyroid nodule ([facility]) 08/10/2023 Shortness of breath 07/13/2023 Paroxysmal supraventricular tachycardia ([facility]) 07/13/2023 PAC (premature atrial contraction) 07/13/2023 [...] of removal of cyst 2012 HTN (hypertension) ([facility]) Hx of abnormal cervical Pap smear [...] AREA NEEDED ergocalciferol (Vitamin D2) 1.25 MG (57001 UT) capsule Take 50,000 Units by mouth [...] referred from the [facility] documented in this encounterSoutheast Missouri Community Treatment CenterSpohiydocq80-55-1085 Telephone encounter Note* Telephone Encounter - Sherrie [...] Triage was involved? Please advise. Sherrie Cortes [facility]11-15-2024 [place]Cent[place]11-15-2024 History of Present illness Narrative* Deisy Jaime LSW - 04/07/2024 9:30 AM EST Patient's name appears on the [facility] First Time Treatment List for a non- oncology treatment. No psychosocial assessment is indicated. BILL Rosenberg Goals of Care Advance Directives are not on file SIGNATURE: JUSTICE Rosenberg PATIENT NAME: Ariadna Haley DATE: April 07, 2024 TIME: 9:31 AM PAGER/CONTACT #: documented in this encounterLakehealth Tripoint [facility] Center11-14-2024 Evaluation + Plan note* Assessment [...] her Raynaud's. All her questions were answered. [facility]11-14-2024 Miscellaneous Notes* Assessment & Plan Note - [...] her questions were answered. documented in this encounterMemorial Health System11-14-2024 History of Present illness Narrative* Hayden Arciniega [...] Interpersonal Safety: Unknown (07/15/2023) Received from [facility] Fear of Current [...] Assessment and Plan: Problem List Rheumatoid arthritis ([facility]) Relevant Medications ibuprofen (ADVIL,MOTRIN) 200 mg tablet predniSONE (STERAPRED DS) 10 mg tablet pack Systemic lupus erythematosus ([facility]) - Primary Relevant Medications ibuprofen (ADVIL,MOTRIN) 200 [...] orders for this visit: Systemic lupus erythematosus ([facility]) - Vas art doppler lwr bilat mult lev/PVR; Future Cold extremities - [facility] [place] - Vas art doppler lwr bilat mult lev/PVR; Future Pain of lower extremity, unspecified laterality - [facility] [place] - Vas art doppler lwr bilat mult lev/PVR; Future Rheumatoid arthritis, involving unspecified site, unspecified whether rheumatoid factor present ([facility]) Current smoker 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 [...] you for your understanding. documented in this encounterMemorial Health System11-14-2024 Instructions* Patient Instructions* Hayden Arciniega MD - 04/06/2024 9:40 AM EST Are You Ready To Kick The Habit? Free Tobacco Cessation Resources [facility] Services [facility] Centers provide all employees with free tobacco cessation services that include: Counseling to understand nicotine addiction Education about medications that can help you successfully quit Assistance with developing a plan to quit Call to set up an individual appointment or find out when group classes will be held: [facility]: [phone] [facility]: [phone] [facility]: [phone] [facility]: [phone] Quit Smoking Action Plan and Resources [facility] offers an eight-week, online smoking cessation plan to all [facility] employees, regardless of whether [place] is your medical insurance provider. Go to www.[place].org/employeewellness and click the Health Risk Assessment and Resources link to get started. In the Bcmte7Ba[employer]rk menu, click Action Plans instead of Health Risk Assessment to access the Quit Smoking Action Plan. Additional smoking cessation resources are also available to all [facility] employees on the Mowtl4Zwddnc web page at www.[employer].com/quitsmoking. [place] Tobacco Cessation Program If [employer] is your medical insurance provider, there are more free resources available to you, including: No copays or deductibles on local tobacco cessation counseling services to help you quit Prescription assistance for tobacco cessation medications to help you quit For details about the tobacco cessation program available to [employer] members, go to www.[facility]Friendsterselect [facility] shaw.[employer] World (Search: Tobacco Cessation Program). [place] Tobacco Quit Line 0-088-BJRC-NOW ( ) is a toll-free, telephonic service that helps [place] residents quit smoking and using tobacco. It is staffed by experts who tailor a quit plan for you and provide you with advice. [place] Tobacco Quit Line 8-034-YFDF-NOW ( ) is a toll-free, telephonic service that helps [place] residents quit smoking and using tobacco. It is staffed by experts who tailor a quit plan for you and provide you with advice. Two weeks of nicotine replacement therapy may be provided at no charge, if needed. Additional Resources These national organizations also offer free information and resources to help you quit tobacco: [place] [employer]--www.cancer.org/healthy/stayawayfromtobacco [place] Heart [employer]--www.heart.org (Search: Quit Smoking) Centers for Disease Control and Prevention--www.cdc.gov/tobacco [place] Lung Association--www.lungusa.org documented in this encounterMemorial Health System11-11-2024 Telephone encounter Note* Telephone Encounter - Marky Mike DO - 04/03/2024 9:36 AM EST Changed terbinafine to itraconazole at pt request. [facility] [id number] Miscellaneous Notes* Telephone Encounter - Marky Mike DO - 04/03/2024 9:36 AM EST Changed terbinafine to itraconazole at pt request. documented in this encounterSoutheast Missouri Community Treatment [id number] Telephone encounter Note* Telephone Encounter - Lynne [...] above. Please process accordingly. Lynne Ni MD [facility]11-10-2024 Miscellaneous Notes* Telephone Encounter - [...] accordingly. Lynne Ni MD documented in this encounterLakehealth [facility]point Medical Center11-10-2024 History of Present illness Narrative* Marky Mikie [...] with her immunosuppressive therapy. documented in this encounterSoutheast Missouri Community Treatment [id number] Instructions* Patient Instructions* Vera Najera MD - 04/01/2024 4:28 PM EST Obtain body fluid culture from [facility]. B12 shot today and every 4 weeks. Continue Folic acid. Frequent infections plan IVIG for hypogammaglobulinemia Start when approved. RTC 3 months repeat labs same day. IVIG same day. documented in this encounterLakehealth Tripoint Medical Center11-08-2024 [place]Cent[place]11-08-2024 History of Present illness Narrative* Ashly Castillo - 03/31/2024 12:29 PM EST CMN RECEIVED BY [employer] VIA FAX, COMPLETED, AND PLACED IN PROVIDER MAILBOX FOR SIGNATURE Ashly Castillo Mix Chemist II 03/31/2024 [employer] SENDING CMN: JOSH SIGNED AND DATED GENOVEVA, FAXED TO DME & CONFIRMATION PAGE RECEIVED: 04/11/2024 documented in this encounterLakehealth Tripoint Medical Center11-07-2024 Telephone encounter Note * Telephone Encounter - Mae Elaine - 03/30/2024 8:01 AM EST Pt is scheduled and instructions were sent thru my chart. [facility]11-07-2024 Miscellaneous Notes* Telephone Encounter - [...] note were not included. documented in this encounterLakehealth Tripoint Medical Center11-06-2024 Telephone encounter Note * Telephone Encounter - Mae Elaine - 03/29/2024 9:02 AM EST Im for pt- saved time on 04/18 7:45 Also sent mychart msg. dm [facility]11-04-2024 [place]11-04-2024 History of Present illness Narrative* Vera Najera MD - 03/27/2024 3:03 PM EST Images from the original note were not included. NAME: Ariadna Haley [facility] NO.: [id number] DATE OF SERVICE: March 27, 2024 ([place]) Some elements in this clinic note that are critical to medical decision making have been carefully reviewed and included from a prior clinic note dated: December 27, 2023 (Liz) Referring Provider: Dr. Manuel Ferris Additional Clinicians involved in Ariadna Haley's care: VIRTUAL VISIT PROGRESS NOTE This is a virtual visit using [employer] Video Call. It required patient- provider interaction for the medical decision making as documented below. I have communicated my name and active licensure. The patient's identity and physical location wereverified at the time of this visit. Either the patient or their legal medical service representative has been informed of the [...] noted. PLAN: Obtain body fluid culture from [facility]. B12 shot today and every [...] lower lip done 2 days ago at [facility] - awaiting results. B12 helps [...] there. Updated Visit, August 27, 2022: Ariadna Haely returns for follow-up and B12 injection. She has missed a few B12 injections. 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/2023 Depression, recurrent ([facility]) 06/09/2023 Discoid lupus erythematosus (CMS/HCC) 02/14/2022 Disturbance of skin sensation 07/06/2023 Elevated sed rate 03/05/2021 High total serum IgM 03/05/2021 Enthesopathy of hip region 07/06/2023 Essential hypertension (CMS/HCC) 06/09/2023 Excessive and frequent menstruation with irregular cycle 09/24/2022 Family history of Crohn's disease 03/05/2021 Hair loss 03/05/2021 Hyperlipidemia (CMS/HCC) 05/31/2014 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 02/04/2023 Long-term [...] Chronic laryngopharyngitis COVID-19 vaccine administered x 2 ([employer]) Difficulty walking Fatigue Fibromyalgia, primary GERD (gastroesophageal [...] behalf of: KELVIN Cabrera documented in this encounterSoutheast Missouri Community Treatment [id number] Nurse Note* Stacy Gutiérrez MA - 03/23/2024 10:16 AM EDT Patient Identification confirmed: yes. Injection given and documented on JUL per provider order. Stacy Gutiérrez MA [facility]10-31-2024 Nurse Note* Stacy Gutiérrez MA - 03/23/2024 10:16 AM EDT Patient Identification confirmed: yes. Injection given and documented on JUL per provider order. Stacy Gutiérrez MA documented in this encounterLakehealth Tripoint Medical Center10-28-2024 Telephone encounter Note * Telephone Encounter - Mae Elaine - 03/20/2024 12:37 PM EDT Images from the original note were not included. [facility]10-26-2024 History of Present illness Narrative* [...] visit. 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, see primary care provider for recurrent flank pain/UTIs, improved with plaquenil 2tabs daily, start photoprotection, see ophthalmology, steroids/prednisone 10mg daily/ per p [facility]/try weaning off, see derm/?eval recurrent boils, see spine/pain clinic/improved with lyrica/may increase if needed, see derm, start prn heat/ice/otc arthritis creams, low impact weightbearing exercise as tolerated, see neurology/on metoprolol for POTs, avoid aggravating triggers, usp pain recommendations per primary care provider/pain clinic/patient [...] neurology/on metoprolol for POTs, avoid aggravating triggers, usp pain recommendations per primary care provider/pain clinic/patient [...] Due for eye exam. Labs sent to [facility]/completed in 06/2021 (no results faxed to office, [...] COVID-19 original vaccine, age 12+ yr, monovalent ([employer] - PURPLE TOP) 09/28/2020 10/19/2020 05/26/2021 COVID-19 vaccine, age 12+ yr (PFIZER-BIONTECH COMIRNATY) 02/23/2023 COVID-19 vaccine, age 12+ yr, bivalent ([employer]Me[employer]News) 02/08/2022 Pneumovax no Flu shot no Tetanus [...] (33);NL cbc, cmp, negative hla b27; [place] 06/2021 low vitamin D 16, vitamin b12-307;high [...] systemic lupus erythematosus with other organ involvement ([facility]) (primary encounter diagnosis) M79.7 Fibromyalgia R76.8 CHRISTIAN positive Q79.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 Elevated sed rate E55.9 Vitamin D deficiency 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 M54.42, M54.41, G89.29 Chronic bilateral low back pain with bilateral sciatica M79.674, M79.675, G89.29 Chronic pain of toes of both feet Z79.899 Long-term use of high-risk medication Z79.52 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 M79.641, M79.642 Bilateral hand pain M32.9 Systemic lupus erythematosus, unspecified SLE type, unspecified organ involvement status ([facility]) E53.8 Vitamin B12 deficiency L93.0 Discoid [...] measures, may consider osteoporosis treatment if on 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 Start [...] video & audio (virtual) or phone or [id number] patient care, completing clinical documentation, obtaining and/or [...] Workers' Compensation? No Do you need an small products assembler? No [facility] MYCHART ZOOM MESSAGE Question 03/16/2024 7:44 [...] Percentile (range: 0 - 100) 1 2 [facility] PROM[facility] CAT V1.0 - FATIGUE-28 DAYS Question [...] my health Strongly Agree documented in this encounterLake[facility]10-26-2024 [place]Cent[place]10-26-2024 Instructions* Patient Instructions* Lynne Ni MD - [...] (200mg) daily with a meal Please see ocean export account manager every 6-12months while on Hydroxychloroquine. azathioprine [...] your usual activities immediately. documented in this encounterLakehealth Tripoint Medical Center10-25-2024 Telephone encounter Note * Telephone [...] above. Please process accordingly. Lynne Ni MD [facility]10-25-2024 Miscellaneous Notes* Telephone Encounter - [...] Department VIDEO SPEC EST 03/18/2024 9:[address] [facility] Last Ophthalmology Check for [...] Assoc. diagnoses: Pseudomonas infection documented in this encounterLakehealth Tripoint Medical Center10-25-2024 Telephone encounter Note * Telephone [...] VIDEO SPEC EST 03/18/2024 9:00 AM [facility] Last Ophthalmology Check for [...] Alhaji Head DO Assoc. 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[facility]) 07/06/2023 Depression, recurrent ([facility]) 06/09/2023 Discoid lupus erythematosus ([facility]) 02/14/2022 Disturbance of skin sensation 07/06/2023 Elevated sed rate 03/05/2021 High total serum IgM 03/05/2021 Enthesopathy of hip region 07/06/2023 Essential hypertension ([facility]) 06/09/2023 Excessive and frequent menstruation with irregular cycle 09/24/2022 Family history of Crohn's disease 03/05/2021 Hair loss 03/05/2021 Hyperlipidemia ([facility]) 05/31/2014 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 02/04/2023 Long-term use of high-risk medication 06/15/2022 Long-term use of Plaquenil 03/05/2021 LPRD (laryngopharyngeal reflux disease) 07/06/2023 Megaloblastic anemia due to vitamin B12 deficiency 03/04/2022 Myalgia 07/06/2023 Obesity, Class III, BMI 40-49.9 (morbid obesity) ([facility]) 09/07/2022 Obstructive sleep apnea syndrome 05/20/2022 [...] of removal of cyst 2012 HTN (hypertension) ([facility]) Hx of abnormal cervical Pap smear Insulin resistance Laryngopharyngeal reflux disease Lupus Numbness Oral thrush Prediabetes Sleep apnea Weakness of limb HISTORY PAST MEDICAL HISTORY SOCIAL HISTORY Past Medical History: Diagnosis Date Anxiety Cervical lymphadenopathy Chronic laryngopharyngitis COVID-19 vaccine administered x 2 ([employer]) Difficulty walking Fatigue Fibromyalgia, primary GERD (gastroesophageal reflux disease) History of removal of cyst 2012 tailbone x2 HTN (hypertension) ([facility]) Hx of abnormal cervical Pap smear Hyperlipidemia ([facility]) Insulin resistance Laryngopharyngeal reflux disease Lupus [...] nursing note reviewed. Exam conducted with a barrel plater present. Vitals: Estimated body mass index is [...] Disease with Dr. Kelsey and [facility]. Patient voiced that Dr. Kelsey recommended surgery, but patient feels that maybe excessive. Specialist at [facility] suggested monitoring. Patient has had mammogram. Patient does not put anything on her breast.Ruled out Mondor's Breast concerns. Discussed Hardwick Oil at night and Vitamin E lotion. Patient voiced that her breast feel brambila and heavier. Discussed growth of breast and proper support. Breastare not hot nor warm to the touch. Patient to obtain bilateral breast ultrasound. Patient to followup with routine annual appointment and as needed. Documented by Alicia Christine LPN on behalf of: Luan Valdivia DO documented in this encounterSoutheast Missouri Community Treatment [id number] NoteCenterville10-16-2024 [facility] Note Chief Complaint: New patient here to establish care. Ref from Gay Enciso CNP for hypertension. Former [facility] cardiology patient. Had echo a few weeks ago at [facility]. Says her BP is very [...] past several months. She has seen 2-3 manager wind in the past. She has undergone a [...] on any stimulants including caffeinated beverages, alcohol, wpcf-[id number]-dmcqhwr Sudafed etc. If her symptoms of palpitations persist, particular if she has lightheadedness or dizziness, head upright tilt table test may be reasonable to evaluate for possible dysautonomia's I discussed the side effects and risks of long-term steroid therapy and recommended she discuss with her multicraft operator weaning off soon as possible Given her morbid obesity, her current symptoms and comorbidities are likely related to excessive weight: I encouraged physical activity, attempts to lose weigh (more content not included)...[facility] 03-07-2024 NoteCent[place]10-15-2024 History of Present illness Narrative* Lee Friedman - 03/07/2024 8:35 AM EDT CMN RECEIVED BY [employer] VIA FAX, COMPLETED, AND PLACED IN PROVIDER MAILBOX FOR SIGNATURE Lee Friedman Coordinator III 03.07.2024 [employer] SENDING CMN: Josh SIGNED AND DATED CMN, FAXED TO [employer] & CONFIRMATION PAGE RECEIVED: 03.07.2024 documented in this encounterLakehealth Tripoint [facility] Center10-01-2024 Telephone encounter Note * Telephone [...] 'too terrified to drive that far to [facility].' Further reviewed the reasoning behind the visit needing to be in-person and stated that I would have our inspector penetrant reach out if she is willingto accept an in-person appt. PT requested that I review with our clinical team if this can be a VV before she schedules. I let her know I will do so and be in touch. She had no further questions at this time. Luda Vargas Genetic Counseling Communication Clerk Additional: see [facility] for documentation of scheduling and cancellation with genetics in 2021 [facility]10-01-2024 Miscellaneous Notes* Telephone Encounter - [...] terrified to drive that far to [employer].' Further reviewed the reasoning behind the visit needing to be in-person and stated that I would have our inspector penetrant reach out if she is willingto accept an in-person appt. PT requested that I review with our clinical team if this can be a VV before she schedules. I let her know I will do so and be in touch. She had no further questions at this time. Luda Vargas Genetic Counseling Communication Clerk Additional: see [employer] for documentation of scheduling and cancellation with genetics in 2021 documented in this encounterLakehealth [facility]point Medical Center09-30-2024 Nurse Note* Kenzie Shannon MA - 02/21/2024 11:13 AM EDT Patient Identification confirmed: yes. Injection given and documented on MAR per provider order. Kenzie Shannon MA [facility]09-30-2024 Nurse Note* Kenzie Shannon MA - 02/21/2024 11:13 AM EDT Patient Identification confirmed: yes. Injection given and documented on JUL per provider order. Kenzie Shannon MA documented in this encounterLakehealth Tripoint Medical Center09-27-2024 Telephone encounter Note * Telephone Encounter - Sherrie Jimenes - 02/18/2024 1:26 PM EDT Patient is calling the [facility] office requesting Dr. Ni to place a referral to genetics. Please advise. [facility]09-27-2024 Miscellaneous Notes* Telephone Encounter - Sherrie Jimenes - 02/18/2024 1:26 PM EDT Patient is calling the [place] office requesting Dr. Ni to place a referral to genetics. Please advise. documented in this encounterLakehealth Tripoint Medical Center09-24-2024 Telephone encounter Note * Telephone Encounter - Hansa Javed LPN - 02/15/2024 9:49 AM EDT PAP ORDER FAXED TO [facility] WITH DEMOGRAPHICS, OFFICE NOTES WITH CONFIRMATON NOTED. [facility]09-24-2024 Miscellaneous Notes* Telephone Encounter - Hansa Javed LPN - 02/15/2024 9:49 AM EDT PAP ORDER FAXED TO [facility] WITH DEMOGRAPHICS, OFFICE NOTES WITH CONFIRMATON NOTED. documented in this encounterLakehealth Tripoint Medical Center09-23-2024 History of Present illness Narrative* Elton (Assembler Molded Frames), Luda - 02/14/2024 2:32 PM EDT [facility] [...] been reviewed prior to dispensing the medication. Or Scrub Tech Assessment Patient confirmed: Yes Med/dose confirmed: Yes Missed doses: No Estimated days supply on hand: 1 Next cycle/dose due: 02/17/24 Copay amount: 0 Payment confirmed: Yes Delivery method: FedEx Signature required: Waived on patient request Delivery address: [address] [place], [place] [address], [place] Delivery date: 02/17/24 Questions or concerns [...] on file prior to visit. [facility] RX SPECIALTY CLINICAL ASSESSMENT - INFLAMMATORY [...] and/or no longer tolerated. Luda Vale CPhT [facility] [phone] documented in this encounterLakehealth Tripoint Medical Center09-23-2024 History of Present illness Narrative* Elton EpsteinAssembler Molded FramesLuda Benz - 02/14/2024 2:26 PM EDT Benefits investigation was conducted, indicating that a re-authorization is required for [employer]. PA was initiated and pending review. Plan Name: Keesha Armstrong Balderrama: [id number] Luda Vale CPhT [facility] [phone] documented in this encounterLakehealth Tripoint Medical Center09-23-2024 Instructions* Patient Instructions* Lexus Heck APRN.SPORTS MANAGEMENT INTERN - 02/14/2024 8:03 AM EDT Images from the original note were not included. Your most recent body mass index (BMI) that we have on record is 43.08 kg/m2. Obstructive sleep apnea (JOSE RAFAEL) worsens with an increase in weight; reduction in weight may improve or resolve your JOSE RAFAEL. Ifyou are not already seeking treatment, there are resources available at the [facility] such as a nutrition consultation or referral to weight management programs at our [facility]. Please let us know if we can [...] deductible,co-payments, and out of pocket expenses. DME: [facility] [phone] - Remember to clean your mask and equipment regularly, as directed. - Avoid use of ozone roller printer, SoClean devices, or UV cleaning devices - [...] the central scheduling system for the [facility] at [phone]. [facility] now offers direct scheduling for patients to schedule appointments. Virtual visits are also available. Call the office at [phone], option #5 for questions. documented in this encounterLakehealth [facility]point Medical Center09-23-2024 History of Present illness Narrative* Lexus Heck APRN.CNP - 02/14/2024 8:00 AM EDT Images from the original note were not included. [facility] Virtual Visit Follow up/ Established patient visit Date of last visit : 07/27/2022 I have communicated my name and active licensure. The patient's identity and physical location wereverified at the time of this visit. Either the patient or their legal medical service representative has been informed of the [...] : PAP therapy DME: Josh MOJICA fax: [phone] YUNIOR ph: [phone] PAP History: Current PAP settin-15 cm H2O. [...] are sorted in reverse-chronological order 04/12/2022 07/23/2022 [place] Sleepiness Scale Score 4 (No clinically significant [...] - Follow up 12 months. Lexus Heck APRN.SPORTS MANAGEMENT INTERN documented in this encounterLakehealth Tripoint Medical Center09-18-2024 History of Present illness Narrative* Zita Cuellar, CARISSA - 02/09/2024 8:00 AM EDT Images from the original note were not included. CHIEF COMPLAINT REASON FOR VISIT : leg pain HPI: Ariadna Haley is a 43 y.o. female who presents for [facility]. She is at home. She consents [...] Chronic laryngopharyngitis COVID-19 vaccine administered x 2 ([employer]) Difficulty walking Fatigue Fibromyalgia, primary GERD (gastroesophageal reflux disease) History of removal of cyst 2012 tailbone x2 HTN (hypertension) ([facility]) Hx of abnormal cervical Pap smear Hyperlipidemia ([facility]) Insulin resistance Laryngopharyngeal reflux disease Lupus ([facility]) Numbness Oral lesion Oral thrush Prediabetes [...] Depression: Not at risk (12/27/2023) [facility] PHQ-2 PHQ-2 score: 1 REVIEW [...] patient, and coordinating care. documented in this encounterSoutheast Missouri Community Treatment [id number] NoteHNO ID: [id number] Author: ALHAJI HEAD, DO Service: ? Author Type: Physician Type: Progress Notes Filed: 01/27/2024 16:54 Note Text: VIRTUAL VISIT PROGRESS NOTE This is a virtual visit using Strobeom Video Visit. It required patient-provider interaction for the medical decision making as documented below. I have communicated my name and active licensure. The patient's identity and physical location were verified at the time of this visit. Either the patient or their legal medical service representative has been informed of the [...] of green drainage. She saw her OB/ plunger machine operator. This was thought to be secondary to [...] SOB/WHEEZING, and NO DYSPHAG (more content not included)...[facility]09-05-2024 History of Present illness Narrative* Alhaji Head DO - 01/27/2024 10:10 AM EDT Images from the original note were not included. VIRTUAL VISIT PROGRESS NOTE This is a virtual visit using Strobeom Video Visit. It required patient- provider interaction for the medical decision making as documented below. I have communicated my name and active licensure. The patient's identity and physical location wereverified at the time of this visit. Either the patient or their legal medical service representative has been informed of the [...] of green drainage. She saw her OB/ plunger machine operator. This was thought to be secondary to [...] thrush Alhaji Head DO documented in this encounterLakehealth Tripoint Medical Center09-03-2024 Nurse Note* Margret Cuenca MA - 01/25/2024 11:30 AM EDT Patient Identification confirmed: yes. Injection given and documented on MAR per provider order. Margret Cuenca MA [facility]09-03-2024 Nurse Note* Margret Cuenca MA - 01/25/2024 11:30 AM EDT Patient Identification confirmed: yes. Injection given and documented on MAR per provider order. Margret Cuenca MA documented in this encounterLakehealth Tripoint Medical Center08-27-2024 History of Present illness Narrative* [...] outcomes. Aidee Quintanilla, RolandD Clinical Pharmacist, [employer] [facility] ; Pool: [facility] Pool #: [id number] Or Scrub Tech Assessment Patient confirmed: Yes Med/dose confirmed: Yes Supplies needed: No supplies needed Missed doses: No Estimated days supply on hand: (At least 1 dose) Next cycle/dose due: 01/20/24 Copay amount: 0 Payment confirmed: Yes Delivery method: FedEx Signature required: Waived on patient request Delivery address: [address] [place] [address] Delivery date: 01/21/24 Questions or concerns for [...] facility-administered medications on file prior to visit. [facility] RX SPECIALTY CLINICAL ASSESSMENT - INFLAMMATORY [...] no longer tolerated. Arianne Mckinley CPhT, Inflammatory/Allergy [facility] [phone] documented in this encounterLakehealth Tripoint Medical Center08-21-2024 Telephone encounter Note * Telephone Encounter - Krista Braswell MA - 01/12/2024 10:45 AM EDT Pt has been notified via POPVOX. [facility]08-21-2024 Miscellaneous Notes* Telephone Encounter - Krista Fonseca MA - 01/12/2024 10:45 AM EDT Pt has been notified via POPVOX. * Telephone Encounter - Lynne Ni MD [...] Assoc. 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 Please process accordingly. Lynne Ni MD [facility]08-21-2024 Telephone encounter Note* Telephone Encounter - Beatriz Sanchez HAND EDGE BANDER - 01/12/2024 7:25 AM EDT Images from [...] TIBC [SQIRON] 03/20/24 06/19/24 12/27/23 Auth. provider: eNda Hill PA-C Assoc. diagnoses: Megaloblastic anemia due [...] Lynne Ni MD Assoc. diagnoses: Screening-pulmonary TB [facility]08-08-2024 Telephone encounter Note* Telephone Encounter - Krista Braswell MA - 12/30/2023 1:34 PM EDT Spoke to pt aware of results and recommendations. [facility]08-08-2024 Miscellaneous Notes* Telephone Encounter - [...] vitamin b12 every month documented in this encounterLakehealth Tripoint Medical Center08-08-2024 Telephone encounter Note * Telephone [...] likely reactive, continue vitamin b12 every month [facility]08-05-2024 Telephone encounter Note* Telephone Encounter - Enma Hamm RN - 12/27/2023 12:49 PM EDT Pt informed of MM message and denies any questions, needs or concerns at this time. Appointments verified. Enma Hamm RN [facility]08-05-2024 Miscellaneous Notes* Telephone Encounter - Enma Hamm RN - 12/27/2023 12:49 PM EDT Pt informed of MM message and denies any questions, needs or concerns at this time. Appointments verified. Enma Hamm RN * Telephone Encounter - Neda Hill PA-C - 12/27/2023 12:44 PM EDT Please call and inform the patient that I reviewed her [facility] records and there is no evidence of a blood clot and she does not need to be on blood thinners. Neda Hill PA-C documented in this encounterLakehealth [facility]point [facility] Center08-05-2024 Telephone encounter Note * Telephone Encounter - Neda Hill PA-C - 12/27/2023 12:44 PM EDT Please call and inform the patient that I reviewed her [facility] records and there is no evidence of a blood clot and she does not need to be on blood thinners. Neda Hill PA-C [facility] Work Phone: [phone] Nurse Note* Margret Cuenca MA - 12/27/2023 11:44 AM EDT Patient Identification confirmed: yes. Injection given and documented on MAR per provider order. Margret Cuenca MA [facility]08-05-2024 Nurse Note* Margret Cuenca MA - 12/27/2023 11:44 AM EDT Patient Identification confirmed: yes. Injection given and documented on MAR per provider order. Margret Cuenca MA documented in this encounterLakehealth Tripoint Medical Center08-05-2024 History of Present illness Narrative* Neda Hill PA-C - 12/27/2023 11:30 AM EDT Images from the original note were not included. NAME: Ariadna Haley [facility] NO.: [id number] DATE OF SERVICE: December 27, 2023 (Liz) [...] labs 1 week before. Request records from [facility] from PE/elevated d-dimer Frequent infections [...] lower lip done 2 days ago at [facility] - awaiting results. B12 helps [...] injections. 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 She has been told they [...] which included preparing to see the patient, fkux-wv-efge patient care, completing clinical documentation, obtaining and/or reviewing separately obtained history, performing a medically appropriate examination, counseling and educating the pat ient/family/caregiver, ordering medications, tests, or procedures, communicating with other HCPs (not separately reported), independently interpreting results (not separately reported), communicatingresults to the patient/family/caregiver, and care coordination (not separately reported). Neda Hill PA-C Hematology and Oncology Services Provided at: [place], [place] CC: Manuel Ferris MD [address] [facility] [id number] documented in this encounterLakehealth Tripoint Medical Center07-22-2024 History of Present illness Narrative* Elton (Assembler Molded Frames)Luda - 12/13/2023 11:44 AM EDT [facility] [...] laboratory parameters, disease state markers and outcomes. Or Scrub Tech Assessment Patient confirmed: Yes Med/dose confirmed: Yes Missed doses: No Estimated days supply on hand: 1 Next cycle/dose due: 12/16/23 Copay amount: 0 Payment confirmed: Yes Delivery method: FedEx Signature required: Waived on patient request Delivery address: [address] [place] [address] Delivery date: 12/17/23 Questions or concerns for [...] on file prior to visit. [facility] RX SPECIALTY CLINICAL ASSESSMENT - INFLAMMATORY CONDITIONS V6: Assessment to use: Refill [facility] RX SPECIALTY PHARMACY VACCINE INFORMATION [facility] RX SPECIALTY PHARMACY TREATMENT PLAN INFORMATION Luda Vale CPhT [facility] [phone] documented in this encounterLakehealth Tripoint Medical Center07-08-2024 Nurse Note* Stacy Gutiérrez MA - 11/29/2023 1:47 PM EDT Patient Identification confirmed: yes. Injection given and documented on MAR per provider order. Stacy Gutiérrez MA [facility]07-08-2024 Nurse Note* Stacy Gutiérrez MA - 11/29/2023 1:47 PM EDT Patient Identification confirmed: yes. Injection given and documented on MAR per provider order. Stacy Gutiérrez MA documented in this encounterLakehealth [facility]point [facility] Center07-05-2024 Telephone encounter Note * Telephone Encounter - Katherin Schneider RN - 11/26/2023 11:34 AM EDT Please sign pended script Maryam Schneider RN [facility]07-05-2024 Miscellaneous Notes* Telephone Encounter - Katherin Schneider RN - 11/26/2023 11:34 AM EDT Please sign pended script Maryam Schneider RN documented in this encounterLakehealth Tripoint Medical Center06-24-2024 History of Present illness Narrative* Dwight, Aidee, [facility] - 11/15/2023 1:00 PM EDT [...] laboratory parameters, disease state markers and outcomes. Or Scrub Tech Assessment Patient confirmed: Yes Med/dose confirmed: Yes Missed doses: No Estimated days supply on hand: 1 Next cycle/dose due: 11/18/23 Copay amount: 0 Payment confirmed: Yes Delivery method: FedEx Signature required: Waived on patient request Delivery address: [address] [place] [address] Delivery date: 11/17/23 Questions or concerns for [...] facility-administered medications on file prior to visit. [facility] Visit Assessment - [...] Yes Aidee Quintanilla, PharmD Clinical Pharmacist, [employer] [facility] ; Pool: P [facility] Pool #: [id number] documented in this encounterLakehealth Tripoint [facility] Center06-20-2024 Telephone encounter Note * Telephone [...] above. Please process accordingly. Lynne Ni MD [facility]06-20-2024 Miscellaneous Notes* Telephone Encounter - [...] High total serum IgM documented in this encounterLakehealth Tripoint Medical Center06-20-2024 Telephone encounter Note * Telephone [...] vitamin B12 deficiency, High total serum IgM [facility]06-06-2024 Telephone encounter Note* Telephone Encounter - Karina Morales RN - 10/28/2023 1:33 PM EDT Pt read POPVOX message. [facility]06-06-2024 Miscellaneous Notes* Telephone Encounter - Karina Morales RN - 10/28/2023 1:33 PM EDT Pt read POPVOX message. * Telephone Encounter - Lynne Ni [...] soon! Warm regards, :) documented in this encounterLakehealth [facility]point [facility] Center06-06-2024 Telephone encounter Note * Telephone [...] you feel better soon! Warm regards, :) [facility]06-05-2024 Nurse Note* Margret Cuenca MA - 10/27/2023 2:43 PM EDT Patient Identification confirmed: yes. Injection given and documented on MAR per provider order. Margret Cuenca MA [facility]06-05-2024 Nurse Note* Margret Cuenca MA - 10/27/2023 2:43 PM EDT Patient Identification confirmed: yes. Injection given and documented on MAR per provider order. Margret Cuenca MA documented in this encounterLakehealth Tripoint Medical Center05-14-2024 History of Present illness Narrative* Lynne Ni [...] visit. Either the patient or their legal medical service representative has been informed of the [...] measures, may consider osteoporosis treatment if on usp steroids/abnormal bmd, take vitamin D script if [...] neurology/on metoprolol for POTs, avoid aggravating triggers, usp pain recommendations per primary care provider/pain clinic/patient [...] neurology/on metoprolol for POTs, avoid aggravating triggers, usp pain recommendations per primary care provider/pain clinic/patient [...] COVID-19 original vaccine, age 12+ yr, monovalent (BringMeTheNews - PURPLE TOP) 09/28/2020 10/19/2020 05/26/2021 COVID-19 vaccine, age 12+ yr, 2022- season (BringMeTheNews) 02/23/2023 COVID-19 vaccine, age 12+ yr, bivalent (BringMeTheNews) 02/08/2022 Pneumovax no Flu shot no Tetanus [...] (33);NL cbc, cmp, negative hla b27; [place] 06/2021 low vitamin D 16, vitamin b12-307;high [...] measures, may consider osteoporosis treatment if on usp steroids/abnormal bmd, take vitamin D script once [...] neurology/on metoprolol for POTs, avoid aggravating triggers, usp pain recommendations per primary care provider/pain clinic/patient [...] (200mg) daily with a meal Please see ocean export account manager every 6-12months while on Hydroxychloroquine. Start [...] touching your toes, sit-ups, using row machine usp pain recommendations per primary care provider/pain clinic [...] video & audio (virtual) or phone or neyu-im-zhra patient care, completing clinical documentation, obtaining and/or [...] Workers' Compensation? No Do you need an small products assembler? No [facility] MYCHART ZOOM MESSAGE Question 2023 11:04 [...] (range: 0 - 100) 2 2 3 [facility] PROMIS CAT V1.0 - FATIGUE-28 DAYS Question 2023 11:05 PM EDT - Filed by Patient 05/24/2023 8:33 PM EDT - Filed by Patient 04/26/2023 3:45 PM EDT - Filed by Patient PROMIS Fatigue T-Score (range: 10 - 90) 59 (mild) Abnormal 62 (moderate) Abnormal 72 (severe) Abnormal PROMIS Fatigue Percentile (range: 0 - 100) 18 12 1 [facility] PROMIS CAT V1.1-PAIN INTERFERENCE-28 DAYS Question 2023 11:06 PM EDT - Filed by Patient 05/24/2023 8:35 PM EDT - Filed by Patient 04/26/2023 3:47 PM EDT - Filed by Patient PROMIS Pain Interference T-Score (range: 10 - 90) (range: 10 - 90) 66 (moderate) Abnormal 70 (moderate) Abnormal 68 (moderate) Abnormal PROMIS Pain Interference Percentile (range: 0 - 100) 5 2 4 [facility] SLAQ QUESTIONNAIRE Question 2023 11:10 PM EDT [...] SLAQ Score (range: 0 - 47) 15 [facility] PROVIDER UNDERSTANDING CURRENT HEALTH RHEUMATOLOGY Question 2023 [...] 3 (WITHIN +/- 5) documented in this encounterLakehealth Tripoint Medical Center05-09-2024 Nurse Note* Renea Schneider MA - 09/30/2023 10:53 AM EDT Patient Identification confirmed: yes. Injection given and documented on JUL per provider order. Renea Schneider MA [facility]05-01-2024 Evaluation note* Author [facility] Authored September 22, 2023 2:55pm 42-year-old [...] to pantoprazole and monitor symptoms [facility] Work Phone: 1(374) 318-309304-18-2024 Instructions* Patient Instructions* Vera Najera MD - 09/09/2023 4:47 PM EDT Follow up in 13 Weeks - labs 1 week before. B12 shot every 4 weeks. Continue Folic acid. documented in this encounterLakehealth Tripoint Medical Center04-18-2024 History of Present illness Narrative* Vera Najera MD - 09/09/2023 4:30 PM EDT NAME: Jose Carlosfrancisco javierAriadna CLINIC NO.: [id number] DATE OF SERVICE: September 09, 2023 (Marquis) Some elements in this clinic note that are critical to medical decision making have been carefully reviewed and included from a prior clinic note dated: June 10, 2023 (Marquis) Referring Provider: Dr. Manuel Ferris Additional Clinicians involved in Ariadna Haley's care: VIRTUAL VISIT PROGRESS NOTE This is a virtual visit using [employer] Video Call. It required patient- provider interaction for the medical decision making as documented below. I have communicated my name and active licensure. The patient's identity and physical location wereverified at the time of this visit. Either the patient or their legal medical service representative has been informed of the [...] lower lip done 2 days ago at [facility] - awaiting results. B12 helps [...] injections. 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 She has been told they [...] CPE Hematology and Oncology Services Provided at: [place], [place] CC: Manuel Ferris MD [address] [facility] [address] documented in this encounterLakehealth [facility]point Medical Center04-15-2024 Miscellaneous Notes* Telephone Encounter - Maynor Bryson MA - 09/06/2023 7:21 AM EDT patient has viewed the POPVOX message per [employer]. * Telephone Encounter - Lynne Ni MD - 09/04/2023 6:30 PM EDT Please Call patient if PeeplePass note not read to review results/released to My Chart if tests completed at [facility]: Improved/Borderline wbc and one inflammatory test- will [...] accordingly. Lynne Ni MD documented in this encounterLakehealth Tripoint Medical Center04-09-2024 Nurse Note* Margret Cuenca MA - 08/31/2023 10:35 AM EDT Patient Identification confirmed: yes. Injection given and documented on JUL per provider order. Margret Cuenca MA documented in this encounterLakehealth [facility]point Medical Center04-01-2024 Nurse Note* Renea Schneider MA - 09/30/2023 10:53 AM EDT Patient Identification confirmed: yes. Injection given and documented on MAR per provider order. Renea Schneider MA documented in this encounterLakehealth [facility]point Medical Center03-14-2024 Nurse Note* Margret Cuenca - 08/05/2023 11:16 AM EDT Patient Identification confirmed: yes. Injection given and documented on JUL per provider order. Margret Cuenca documented in this encounterLakehealth Tripoint Medical Center02-20-2024 Nurse Note* Margret Cuenca - 07/13/2023 12:01 PM EST Patient Identification confirmed: yes. Injection given and documented on JUL per provider order. Margret Cuenca documented in this encounterLakehealth Tripoint Medical Center02-20-2024 History of Present illness Narrative* [...] being cared for at the [facility] utilizing steroids, Plaquenil and injectable medic ation(Benlystal). The patient record indicating having had cardiac catheterization in [place] 3 years ago which was normal. I have the report available for my review. [facility] [...] treated by rheumatology at the [facility] on steroids, Plaquenil and monoclonal antibody [...] , Rfl: ergocalciferol (Vitamin D-2) 1.25 MG (90403 UT) capsule, Take 1 capsule (50,000 Units) [...] exam, discussion and plan. documented in this [facility] Work Phone: 1(590) 684-478102-20-2024 Instructions* Patient Instructions* Lila Tejeda LPN - [...] time of your visit. documented in this [facility] Work Phone: 1(447) 337-344202-13-2024 History of Present illness Narrative* Kade Richardson [...] , Rfl: ergocalciferol (Vitamin D2) 1.25 MG (05697 UT) capsule, Take 50,000 Units by mouth [...] Chronic laryngopharyngitis COVID-19 vaccine administered x 2 (BuyNow WorldWide) History of removal of cyst 2013 tailbone [...] reflexes: Stu's absent. Ankle clonus absent. Coordination Seepai-ka-vzuz, rapid alternating movements and wlbi-em-ydrn normal bilaterally without dysmetria. Gait Normal casual, toe, heel and tandem gait. Romberg is absent. Assessment/Plan Diagnoses and all orders for this visit: Autoimmune disease (CMS/[facility]) - Protein electrophoresis, serum; Future - [...] Lyrica 100 mg TID. She is on nngmgabpoh46 mg once daily. Increase prednisone 10 mg BID for 10 days. documented in this [facility]01-17-2024 History of Present illness Narrative* Michelle Jasmine, PENSION FUND MANAGER-SPORTS MANAGEMENT INTERN - 06/09/2023 8:30 AM EST Ariadna Haley is a 42 y.o. female that presents to the office today for new patient evaluation asself referral for palpitations and elevated heart rates. She has a PMH of HTN, HLD, tachycardia, anemia, JOSE RAFAEL with CPAP compliance, lupus, autonomic dysfunction, arthritis, chronic back pain. She has undergone cardiac workup in the past in [place] as noted below. She also states that she follows withNeurology for possible POTS syndrome. Admits to daily tobacco use, 1 pack of cigarettes per day. Denies vaping, ETOH, recreational drugs. Admits to drinking approximately 1 pot of coffee per day. Denies daily exercise. 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 Family history [...] , Rfl: ergocalciferol (Vitamin D-2) 1.25 MG (75120 UT) capsule, Take 1 capsule (50,000 Units) [...] to prepare this document. documented in this [facility] Work Phone: 1(204) 173-909701-03-2024 Instructions* Patient Instructions* Christie Phan MD - 05/26/2023 5:43 PM EST Images from the original note were not included. https://Mimiboard.Product World/tofu-bolognese/ https://nutritionstudies.org/but-tr-ugqewaznf-gjlcbglk-gn-qarqq-x-vxttd-jtrh-randee wq-ajnbc-ramclczal/ https://www.Mantis Vision/blog/plantbasedkids https://Digital Karma/euyqt-axfaz-eexe-for-kids/ https://Club W/mmn-ni-jhwccexhgb-jurq-dtnu-lh-i-mgoya-mabfw-diet/ WHAT TO EAT? Breakfast: Overnight Oats Base ingredients: 1/3 cup rolled oats, 1/3 cup plain almond milk, 1tsp kyle seeds. Optional add-ins: cinnamon, flax seeds, honey or maple syrup, nut butter, chopped nuts. Toppings: Any fresh fruit chopped. Mix together and place in refrigerator. Can make 5 at a time for the whole week. Homemade fresh oatmeal. Can also make in the crockpot. Mosotho muffin/almond butter topped with fresh berries Mosotho muffin, cooked egg/egg white, tomato, thin slice guyanese cheese Fresh berries, hard boiled egg, whole wheat toast Plain yogurt topped with berries, unsalted nuts, drizzle of honey Whole grain toast/Mosotho muffin topped with mashed avocado and tomatoes Lunch: Dinner leftovers packed in Tupperware, side of fruit Salad mixture topped with a protein (chick breast/tuna/hard boiled egg/beans), dressing and side offruit Dinner - Refer to plate planner scheduler pictures to help select foods and portion ratios of protein, vegetables/starches. Keep it simple and rotate your favorite meals. Sheet nix meals Soups Grilled protein/vegetables/side of starch (plate planner scheduler picture) Stir can with protein, mixed vegetables, and riced cauliflower or portion controlled whole grain rice. Make your own bowls - Djiboutian/Samoan/ theme [place] with Zoodles (spiralized vegetable noodles). Roasted vegetable wraps Alter traditional recipes to reflect HIGH QUALITY ingredients in the right QUANTITIES. Snacks - portion controlled: Raw veggies (can have with hummus, mashed avocado, salsa). Unsalted nuts Fruit (1 serving). (optional side of peanut butter) Air pop popcorn [place] and low fat guyanese cheese rolled up String cheese Protein balls (mix rolled oats, nut butter, flax seeds, dash almond milk). Beverages: Water Coffee, Hot tea Unsweetened ice tea EATING OUT: Research menu online, include nutritional information. Make your order decision before getting to restaurant. Stick to recommended portions (plate planner scheduler picture). Ask for substitutions or modifications. Consider [...] baked potato, sprouted grain bread, chick peas https://www.Moviestorm.Product World/article/3251086/vlobbjjxeyehp-zbbg-vzsw-for-beginners / https://www.Moviestorm.Product World/category/4274/vtobgemattkug-zvwu-oylskq/ https://www.Moviestorm.Product World/category/4300/gaksbsphwwclp-tkjl-mexw-plans/ My current favorite cookbooks are documented in this encounterLakehealth [facility]point Medical Center01-03-2024 History of Present illness Narrative* Christie Phan MD - 05/26/2023 5:00 PM EST Images from the original note were not included. [facility] Follow-Up Appointment [...] the date of the service which included eobu-bn-ybte patient care, completing clinical documentation, performing a medically appropriate examination, counseling and educating the patient/family/caregiver, and ordering medications, tests, or procedures. Christie Phan MD, MA, [facility] Lifestyle Medicine Specialist documented in this encounterLakehealth Tripoint Medical Center12-04-2023 Miscellaneous Notes* Telephone Encounter - Renate Lawrence MA - 04/26/2023 5:26 PM EST Medication pending with new pharmacy information. documented in this encounterLakehealth Tripoint Medical Center12-04-2023 History of Present illness Narrative* Christie Phan MD - 04/26/2023 4:15 PM EST Images from the original note were not included. [facility] Virtual Follow-Up [...] the date of the service which included gjdx-so-cayx patient care, completing clinical documentation, performing a medically appropriate examination, counseling and educating the patient/family/caregiver, and ordering medications, tests, or procedures. I have communicated my name and active licensure. The patient's identity and physical location wereverified at the time of this visit. Either the patient or their legal medical service representative has been informed of the risks and benefits of -- and alternatives to -- treatment through a remote evaluation andconsents to proceed with the evaluation remotely. Christie Phan MD, MA, [facility] Lifestyle Medicine Specialist documented in this encounterLakehealth Tripoint Medical Center12-04-2023 Nurse Note* Renate Lawrence MA - 04/26/2023 2:46 PM EST Spoke to Ariadna Haley, confirmed patient is registered on PeeplePass and is prepared for their appointment. Confirmed the patient has updated medications, allergies, and questionnaires via PeeplePass. Informed patient if there is an issue with the connection, provider will send the patient a secure link. If provider is running late, patient should remain connected to the visit. Patient verbalized understanding. documented in this encounterLakehealth Tripoint Medical Center11-30-2023 Miscellaneous Notes* Telephone Encounter - Enma Hamm RN - 04/22/2023 3:48 PM EST Pt called for Iron results; possible need for transfusion. Pt aware no need for iron infusion at this time. Enma Hamm RN documented in this encounterLakehealth Tripoint Medical Center11-24-2023 History of Present illness Narrative* Kenzie Shannon - 04/16/2023 10:55 AM EST Patient Identification confirmed: yes. Injection given and documented on JUL per provider order. Kenzie Shannon documented in this encounterLakehealth Tripoint Medical Center10-27-2023 History of Present illness Narrative* Kenzie Shannon - 03/19/2023 11:06 AM EDT Patient Identification confirmed: yes. Injection given and documented on JUL per provider order. Kenzie Shannon documented in this encounterLakehealth Tripoint Medical Center10-24-2023 History of Present illness Narrative* Marija Ziegler - 03/16/2023 10:13 AM EDT CMN RECEIVED BY [employer] VIA FAX, COMPLETED, AND PLACED IN PROVIDER MAILBOX FOR SIGNATURE On 2022 By Marija Ziegler Mix Chemist II. [employer] SENDING CMN: JOSH SIGNED AND DATED CMN, FAXED TO DME & CONFIRMATION PAGE RECEIVED: 03.24.23 documented in this encounterLakehealth Tripoint Medical Center10-19-2023 History of Present illness Narrative* [...] LPN In Department: RHEUMATOLOGY documented in this [facility]10-18-2023 Miscellaneous Notes* Telephone Encounter - Christie Phan MD - 03/10/2023 2:18 PM EDT Spoke with patient. We stopped her trulicity because of side effects. She only took the cymbalta for a week. She will restart and we will see how she is doing in 2 months. Have also ordered insulin labs to check for insulin resistance. documented in this encounterLakehealth Tripoint Medical Center10-09-2023 Miscellaneous Notes* Telephone Encounter - Lynne Ni MD - 03/01/2023 3:27 PM EDT For chart: Eye exam 02/26/23 no ocular complication related to medication. * Telephone Encounter - Beatriz Sanchez LPN - 03/01/2023 2:38 PM EDT Received eye exam from [facility] Placed on your desk for review. documented in this encounterLakehealth Tripoint Medical Center09-29-2023 Nurse Note* Radha Kebede MA - 02/19/2023 11:48 AM EDT Patient Identification confirmed: yes. Injection given and documented on JUL per provider order. Radha Schofield MA documented in this encounterLakehealth Tripoint Medical Center09-29-2023 Instructions* Patient Instructions* Vera Najera MD - 02/19/2023 11:40 AM EDT B12 shot today and every 4 weeks. Continue Folic acid. Follow up in 8 Weeks - labs 1 week before. documented in this [facility]09-29-2023 History of Present illness Narrative* Vera Najera MD - 02/19/2023 11:32 AM EDT Images from the original note were not included. AMBULATORY TELEPHONE VISIT Ariadna Halye has consented to this telephone encounter. Persons Present: Patient and myself Chief Complaint/Reason: Anemia; To review recent blood work. HPI: Total Time Spent: 21 minutes Rebekah Rojas APRN.SPORTS MANAGEMENT INTERN NAME: Ariadna Haley CLINIC NO.: [id number] DATE OF SERVICE: February 19, 2023 (chyna) Some elements in this clinic note that are critical to medical decision making have been carefully reviewed and included from a prior clinic note dated: December 17, 2022 (Bob) & October 22, 2022 (Marquis) Referring Provider: Dr. Manuel Ferris Additional Clinicians involved in Aridana Haley's care: DIAGNOSIS: Multiple symptoms ASSESSMENT: 42 [...] lower lip done 2 days ago at [facility] - awaiting results. B12 helps [...] injections. 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 She has been told they [...] which included preparing to see the patient, yfvw-mk-eosl patient care, completing clinical documentation, performing a medically appropriate examination, counseling and educating the patient/family/caregiver, ordering medications, tests, or p rocedures, and independently interpreting results (not separately reported). Vera Najera MD, CPE Hematology and Oncology Services Provided at: [place], [place] CC: Manuel Ferris MD [address] [facility] [address] documented in this encounterLakehealth Tripoint Medical Center09-26-2023 Miscellaneous Notes* Telephone Encounter - [...] Department RAYRAY INJECTION TEACHING 03/11/2023 7:30 AM [facility] ME[facility] VIDEO SPEC EST 08/12/2023 9:00 AM [facility] Last Ophthalmology Check for Plaquenil [...] diagnoses: Vitamin D deficiency documented in this encounterLakehealth Tripoint Medical Center09-18-2023 Miscellaneous Notes* Telephone Encounter - [...] accordingly. Lynne Ni MD documented in this encounterLakehealth Tripoint Medical Center09-14-2023 History of Present illness Narrative* Carlene Rendon - 02/04/2023 9:31 AM EDT [facility] received prescription(s) for Benlysta from Dr. Ni. Benefits investigation was conducted, indicating that a prior authorization is required by patients plan with [facility]. Encounter will be updated once prior authorization has been submitted by [facility]. [facility] P: [phone] F: [phone] documented in this encounterLakehealth Tripoint Medical Center09-14-2023 History of Present illness Narrative* [...] visit. Either the patient or their legal medical service representative has been informed of the [...] neurology/on metoprolol for POTs, avoid aggravating triggers, usp pain recommendations per primary care provider/pain clinic/patient [...] Due for eye exam. Labs sent to [facility]/completed in 06/2021 (no results faxed to office, [...] COVID-19 original vaccine, age 12+ yr, monovalent (BringMeTheNews - PURPLE TOP) 09/28/2020 10/19/2020 05/26/2021 COVID-19 vaccine, age 12+ yr, bivalent ([employer]ur[employer]) 02/08/2022 Pneumovax no Flu shot no Tetanus [...] (33);NL cbc, cmp, negative hla b27; [place] 06/2021 low vitamin D 16, vitamin b12-307;high [...] rate M25.531, M25.532 Bilateral wrist pain Z79.52 [facility] 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 M81.8, T38.0X5A [...] measures, may consider osteoporosis treatment if on usp steroids/abnormal bmd, take vitamin D script if [...] neurology/on metoprolol for POTs, avoid aggravating triggers, usp pain recommendations per primary care provider/pain clinic/patient currently declined cymbalta/lyrica, see ortho, prn brace, start fall precautions, answered all questions and concerns, patient voiced understanding. RECOMMENDATION/PLAN: [facility] [email or web address] on 02/04/23 DXA-AXIAL SKELETON DXA-FOREARM SKELETON Reviewed [...] (200mg) daily with a meal Please see ocean export account manager every 6-12months while on Hydroxychloroquine. Start [...] video & audio (virtual) or phone or xgeg-wu-tznv patient care, completing clinical documentation, obtaining and/or [...] cc Gay Enciso CNP;Dr.Douglas Sai Ferris MD [facility] AMBULATORY VISIT INTAKE QUESTIONNAIRE Question 02/02/2023 [...] Workers' Compensation? No Do you need an small products assembler? No [facility] MYCHART ZOOM MESSAGE Question 02/02/2023 10:32 [...] of Right Forearm or Lower Left Leg. [facility] PROMIS 10 ADULT SHORT FORM [...] < or = 5) documented in this encounterLakehealth Tripoint Medical Center09-14-2023 Instructions* Patient Instructions* Lynne Ni [...] (200mg) daily with a meal Please see ocean export account manager every 6-12months while on Hydroxychloroquine. azathioprine [...] touching your toes, sit-ups, using row machine usp pain recommendations per primary care provider/pain clinic [...] your usual activities immediately. documented in this encounterLake[facility]09-05-2023 Miscellaneous Notes* Telephone Encounter - Maynor Bryson MA - 01/26/2023 7:46 AM EDT patient has viewed the POPVOX message per [employer]. * Telephone Encounter - Lynne Ni MD [...] accordingly. Lynne Ni MD documented in this encounterLakehealth [facility]point [facility] Center09-01-2023 Nurse Note* Radha Kebede MA - 01/22/2023 12:17 PM EDT Patient Identification confirmed: yes. Injection given and documented on JUL per provider order. Radha Schofield MA documented in this encounterLakehealth Tripoint [facility] Center08-22-2023 Miscellaneous Notes* Telephone Encounter - [...] the above prescription(s) to electronically send to [facility] pharmacy. Milagro Mendiola MA documented in this encounterLakehealth Tripoint [facility] Center08-11-2023 History of Present illness Narrative* Misty Nelson MD - 01/01/2023 10:51 AM EDT VIRTUAL VISIT PROGRESS NOTE This is a virtual visit using PeeplePass video visit. It required patient-provider interaction for themedical decision making as documented below. I have communicated my name and active licensure. The patient's identity and physical location wereverified at the time of this visit. Either the patient or their legal medical service representative has been informed of the [...] otitis or sinusitis No pneumonia She sees multicraft operator and was diagnosed with lupus She is on Plaquenil, azathioprine Prednisone 10mg once daily for the past year; every few months she gets treated with higher doses of prednisone for flares of her symptoms The medications seem to help the body aches She saw the wireless store manager Treated with B12 and folic acid [...] visit. Misty Nelson MD documented in this encounterLakehealth [facility]07-28-2023 Miscellaneous Notes* Telephone Encounter - Rebekah Rojas APRN.SPORTS MANAGEMENT INTERN - 12/18/2022 10:48 AM EDT Spoke with patient this morning, 12/18/2022. Rebekah Rojas APRN.TRUE * Telephone Encounter - Lidia Argueta RN - 12/18/2022 9:31 AM EDT Pt called assembly lead person service last evening stating she was suppose to have a phone call with Rebekah at 330 and never received a call. Pt is still waiting (536 pm 12/17/22). Please advise Lidia Argueta RN documented in this encounterLakehealth Tripoint Medical Center07-28-2023 History of Present illness Narrative* [...] Rojas APRN.CNP NAME: Ariadna Haley CLINIC NO.: [id number] DATE OF SERVICE: October 22, 2022 (Marquis) [...] lower lip done 2 days ago at [facility] - awaiting results. B12 helps [...] injections. 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 She has been told they [...] which included preparing to see the patient, dhlq-uu-oben patient care, completing clinical documentation, performing a medically appropriate examination, counseling and educating the patient/family/caregiver, ordering medications, tests, or p rocedures, and independently interpreting results (not separately reported). Vera Najera MD, CPE Hematology and Oncology Services Provided at: [place], [place] CC: Manuel Ferris MD [address] [facility] [address] documented in this encounterLakehealth Tripoint Medical Center07-26-2023 Miscellaneous Notes* Telephone Encounter - Pamella Bettencourt RN - 12/16/2022 1:14 PM EDT Pt notified and verbalizes understanding. Clerical: Please change tomorrow's appointment to a phone visit at the end of Rebekah's day. Preferred number is [phone]. In addition, pt will be in next [...] schedule? Pamella Bettencourt RN documented in this encounterLakehealth [facility]point [facility] Center07-23-2023 Miscellaneous Notes* Telephone Encounter - [...] advise Enma Hamm RN documented in this encounterLakehealth [facility]point [facility] Center07-04-2023 Miscellaneous Notes* Telephone Encounter - [...] Ni MD documented in this [facility]06-29-2023 Nurse Note* Margret Cuenca - 11/19/2022 11:01 AM EDT Patient Identification confirmed: yes. Injection given and documented on JUL per provider order. Margret Cuenca documented in this [facility]06-01-2023 Nurse Note* Stacy Gutiérrez Ma - 10/22/2022 11:50 AM EDT Patient Identification confirmed: yes. Injection given and documented on JUL per provider order. Stacy Gutiérrez Ma documented in this [facility]06-01-2023 Instructions* Patient Instructions* Vera Najera MD - 10/22/2022 11:43 AM EDT B12 Shot today and every 4 weeks. Continue Folic acid. Follow up in 8 Weeks - labs 1 week before. documented in this [facility]06-01-2023 History of Present illness Narrative* Vera Najera MD - 10/22/2022 11:35 AM EDT Images from the original note were not included. NAME: Ariadna Haley CLINIC NO.: [id number] DATE OF SERVICE: October 22, 2022 (Marquis) [...] lower lip done 2 days ago at [facility] - awaiting results. B12 helps [...] injections. 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 She has been told they [...] which included preparing to see the patient, fmgf-sw-palp patient care, completing clinical documentation, performing a medically appropriate examination, counseling and educating the patient/family/caregiver, ordering medications, tests, or p rocedures, and independently interpreting results (not separately reported). Vera Najera MD, CPE Hematology and Oncology Services Provided at: [place], [place] CC: Manuel Ferris MD [address] [facility] [address] documented in this encounterLakehealth [facility]point [facility] Center05-04-2023 Nurse Note* Stacy Gutiérrez Ma - 09/24/2022 10:22 AM EDT Patient Identification confirmed: yes. Injection given and documented on JUL per provider order. Stacy Gutiérrez Ma documented in this encounterLakehealth [facility]point [facility] Center04-18-2023 Miscellaneous Notes* Telephone Encounter - Stacy Hernandez - 09/08/2022 2:27 PM EDT Pharmacy-Reviewed Medication History Patient Name:Jim Haley : 1980 Patient Contact Attempt: First attempt Adherence Packing Program Accepted? No, patient does not wish to participate. Patient is not eligible for adherence packaging because PCP is not within [facility]. Patient wishes to continue at [facility] since medication bottles will look the same and then she can pick-up the medications when she needs them. Stacy Hernandez September 08, 2022 2:28 PM [facility] [phone] documented in this encounterLakehealth [facility]point [facility] Center04-17-2023 History of Present illness Narrative* Christie Phan MD - 09/07/2022 2:00 PM EDT Images from the original note were not included. [facility] Virtual Follow-Up [...] which included preparing to see the patient, etnb-ah-gawh patient care, completing clinical documentation, performing a medically appropriate examination, counseling and educating the patient/family/caregiver, ordering medications, tests, or p rocedures, and communicating with other HCPs (not separately reported). I have communicated my name and active licensure. The patient's identity and physical location wereverified at the time of this visit. Either the patient or their legal medical service representative has been informed of the risks and benefits of -- and alternatives to -- treatment through a remote evaluation andconsents to proceed with the evaluation remotely. Christie Phan MD, MA, [facility] Lifestyle Medicine Specialist documented in this encounterLakehealth [facility]point [facility] Center04-17-2023 Nurse Note* Milagro Mendiola MA - 09/07/2022 2:00 PM EDT Called pt to do intake for video visit pt unavailable lft vm msg sent my chart. Milagro Mendiola MA documented in this encounterLakehealth [facility] Center04-10-2023 Miscellaneous Notes* Telephone Encounter - Shantel Higgins MA - 08/31/2022 8:38 AM EDT called [facility] pharmacy - pharmacy had 1 refill remaining no action needed from our office documented in this [facility]04-06-2023 Nurse Note* Stacy Gutiérrez Ma - 08/27/2022 10:31 AM EDT Patient Identification confirmed: yes. Injection given and documented on JUL per provider order. Stacy Gutiérrez Ma documented in this encounterLakehealth [facility]point [facility] Center04-06-2023 History of Present illness Narrative* Rebekah Rojas APRN.SPORTS MANAGEMENT INTERN - 08/27/2022 10:00 AM EDT Images from the original note were not included. NAME: Ariadna Haley [facility] NO.: [id number] DATE OF SERVICE: August 27, 2022 (Bob) [...] injections. 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 She has been told they [...] stomach other (Crohn's [Other]) Mother Rebekah Rojas APRN.SPORTS MANAGEMENT INTERN Hematology and Oncology Services Provided at: [place], [place] CC: Mnauel Ferris MD [address] [facility] [address] I spent a total of 30 minutes on the date of the service which included preparing to see the patient, nsxr-qf-ymig patient care, completing clinical documentation, obtaining and/or reviewing separately obtained history, performing a medically appropriate examination, counseling and educating the pat ient/family/caregiver, ordering medications, tests, or procedures, independently interpreting results (not separately reported), and communicating results to the patient/family/caregiver. documented in this encounterLakehealth [facility] Center03-29-2023 Miscellaneous Notes* Telephone Encounter - [...] low vitamin b12- take over the counter 4095-2371 mcg daily. Improved/ normal rest of rheum [...] accordingly. Lynne Ni MD documented in this encounterLakehealth [facility] Center03-28-2023 Miscellaneous Notes* Telephone Encounter - [...] accordingly. Lynne Ni MD documented in this encounterLakehealth [facility] Center03-20-2023 Miscellaneous Notes* Telephone Encounter - Christie Phan MD - 08/10/2022 9:46 AM EDT [facility] requesting refill, patient never started according to the chart and I have not seen her in follow-up. * Telephone Encounter - Jami Everett Cma - 08/10/2022 7:40 AM EDT [facility] Pharmacy request for the following refill(s): Requested Prescriptions Pending Prescriptions Disp Refills DULoxetine (CYMBALTA) 20 mg capsule [Pharmacy Med Name: DULOXETINE HCL DR 20 MG CAP] 30 capsule 2 Sig: TAKE 1 CAPSULE BY MOUTH ONCE DAILY Please review and advise. Jami Everett Cma documented in this encounterLakehealth [facility] Center03-06-2023 Instructions* Patient Instructions* Lexus Heck [...] treatment, there are resources available at the [facility] such as a nutrition consultation or referral to weight management programs at our [facility]. Please let us know if we can assist with a referral. - Continue CPAP at 5-15 cmH2O. - Remember to clean your mask and equipment regularly, as directed. - You should be eligible for new supplies approximately every 3-6 months, depending on your insurance coverage. Contact your [employer] (DME) company for new supplies. [...] the central scheduling system for the [facility] at [phone]. [facility] now offers direct scheduling for patients to schedule appointments. Virtual visits are also available. If not covered by your insurance, there is a 35% discount. Please contact your insurance to determine coverage. Call the office at [phone], option #5 for questions. documented in this encounterLakehealth [facility] Center03-06-2023 History of Present illness Narrative* Lexus Heck APRN.CNP - 07/27/2022 10:30 AM EST Images from the original note were not included. [facility] Virtual Visit [...] will have a prescription sent to a [employer] company - [employer] who will be calling you in the next 1-2 weeks or so. Please call them directly or us if you do not hear from them in this time frame. - Will request formal mask fitting - You should be eligible for new supplies approximately every 3-6 months, depending on your insurance coverage. - If your mask doesn't fit well, call the [employer] company before 30 days are up to [...] now to ensure the besttime for you. [facility] on 04/13/22 CONSULT TO SLEEP MEDICINE - ADULT CPAP/BIPAP/OTHER PAP THERAPY ORDER Lawanda Miranda MD Interval history : Here for follow up for sleep apnea management. SLEEP APNEA Sleep apnea type : JOSE RAFAEL Most Recent Apnea-Hypopnea Index (AHI): 5.3 Treatment : PAP therapy DME: Josh MOJICA fax: [phone] DME ph: [phone] PAP History: Current PAP settin-15 cm H2O. [...] or near accidents due to drowsy drivin [place] Sleepiness Scale 04/12/2022 07/23/2022 Score 4 (No [...] medications, tests, or procedures. documented in this encounterLakehealth [facility]point [facility] Center03-03-2023 Miscellaneous Notes* Telephone Encounter - [...] back to this agent, [facility]. 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 documented in this encounterLakehealth [facility]point [facility] Center03-01-2023 Miscellaneous Notes* Telephone Encounter - Gem Mercedes RN - 07/22/2022 2:37 PM EST MyChart message sent documented in this [facility]12-28-2022 History of Present illness Narrative* Kenzie Shannon - 05/20/2022 2:28 PM EST Patient Identification confirmed: yes. Injection given and documented on JUL per provider order. Kenzie Shannon documented in this [facility]12-28-2022 Miscellaneous Notes* Addendum Note - Vera Najera MD - 05/20/2022 2:27 PM ESTAddended by: VERA NAJERA on: 05/20/2022 02:27 PM Modules accepted: Orders documented in this [facility]12-28-2022 Instructions* Patient Instructions* Vera Najera MD - 05/20/2022 2:23 PM EST B12 Shot Today and every 4 weeks Get fit for CPAP mask and setting this 05/28/2021 Continue Folic acid. RTC in 8 Weeks - labs 1 week before. documented in this [facility]12-28-2022 History of Present illness Narrative* Vera Najera MD - 05/20/2022 1:30 PM EST Images from the original note were not included. NAME: Ariadna Haley CLINIC NO.: [id number] DATE OF SERVICE: May 20, 2022 (Marquis) [...] which included preparing to see the patient, mfql-ts-plrm patient care, completing clinical documentation, performing a medically appropriate examination, counseling and educating the patient/family/caregiver, ordering medications, tests, or p rocedures, and independently interpreting results (not separately reported). Vera Najera MD, [facility] Hematology and Oncology Services Provided at: [place], [place] CC: Vera Najera [address] [place] [address] [place] [id number] Manuel Ferris MD, [address] [facility] [address] [place]: [place] [address] [place] [address] documented in this encounterLakehealth [facility]point Medical Center12-13-2022 Miscellaneous Notes* Telephone Encounter - Gem Mercedes RN - 05/05/2022 2:39 PM EST Faxed order, office notes, demographics, and sleep study to: DME name: Josh Reese DME fax: [phone] DME ph: [phone] Confirmation received. documented in this encounterLakehealth Tripoint Medical Center12-13-2022 Miscellaneous Notes* Telephone Encounter - Gem Merecdes RN - 05/05/2022 12:00 PM EST PeeplePass message sent documented in this encounterLakehealth Tripoint Medical Center12-13-2022 Miscellaneous Notes* Telephone Encounter - ANALILIA Monterroso - 05/05/2022 11:36 AM EST [facility] received your PAP order. Due to a major [employer] recall and manufacturing shortage, we are unable to fulfill the request to provide your patient with a CPAP/BIPAP machine at this time. We will keep the request on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 Resolved Date Obesity (BMI 30-39.9) 05/31/20142016 documented as of this encounter (statuses as of 02/21/2023) [facility] Past illness Narrative* Problem Noted Date Diagnosed Date Resolved Date Obesity (BMI 30-39.9) 05/31/20142016 documented as of this encounter (statuses as of 03/02/2023) [facility] Diagnosis Other systemic lupus erythematosus [...] and myositis, unspecified [facility] Diagnosis Swelling of lymph nodes- Primary Enlargement of lymph nodes Other systemic lupus erythematosus with other organ involvement (HCC) On prednisone therapy Hair loss Alopecia, unspecified Bilateral sacroiliitis (HCC) Long-term use of Plaquenil 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-term (current) use of other medications [facility] Diagnosis Vitamin B12 deficiency- Primary Other B-complex deficiencies Vitamin D deficiency Unspecified vitamin D deficiency Elevated sed rate Elevated sedimentation rate Elevated C-reactive protein (CRP) documented [facility] this [facility] Diagnosis 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 Other vitamin B12 deficiency anemia Somnolence, daytime Hypersomnia, unspecified Snoring Other dyspnea and respiratory abnormality Chronic fatigue and malaise Chronic fatigue syndrome Obesity, unspecified classification, unspecified obesity type, unspecified whether serious comorbidity present [facility] this [facility] Diagnosis Obesity, Class II, BMI 35-39.9- [...] nonspecific immunological findings [facility] this [facility]* Diagnosis Megaloblastic anemia due to vitamin B12 deficiency- Primary Other vitamin B12 deficiency anemia High total serum IgM [facility] Diagnosis Raised level of immunoglobulins- Primary Other and unspecified nonspecific immunological findings Wound healing, delayed Open wound(s) (multiple) of unspecified site(s), complicated Current smoker Tobacco use disorder [facility] Diagnosis Family history of genetic disease- Primary Family history of other condition [facility] encounter [facility] Diagnosis High total serum IgM- Primary Elevated sed rate Elevated sedimentation rate Somnolence, daytime Hypersomnia, unspecified JOSE RAFAEL (obstructive sleep apnea) Obstructive sleep apnea (adult) (pediatric) documented [facility] this [facility] Diagnosis Megaloblastic anemia due to vitamin B12 deficiency- Primary Other vitamin B12 deficiency anemia Elevated sed rate Elevated sedimentation rate [facility] Diagnosis Megaloblastic anemia due to vitamin B12 deficiency- Primary Other vitamin B12 deficiency anemia Elevated sed rate Elevated sedimentation rate High total serum IgM Chronic fatigue and malaise Chronic fatigue syndrome [facility] Diagnosis JOSE RAFAEL (obstructive sleep apnea)- Primary Obstructive sleep apnea (adult) (pediatric) [facility] Diagnosis Other systemic lupus erythematosus with other organ involvement (HCC)- Primary Family history of Crohn's disease Family history of other digestive disorders Fibromyalgia Mylagia and myositis, unspecified [facility] Diagnosis Other systemic lupus erythematosus with other organ involvement (HCC)- Primary Elevated LFTs Other abnormal blood chemistry Anemia of chronic disease Anemia of other chronic disease 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-term (current) use of other medications [facility] Diagnosis Megaloblastic anemia due to vitamin B12 deficiency- Primary Other vitamin B12 deficiency anemia Elevated sed rate Elevated sedimentation rate [facility] Diagnosis Megaloblastic anemia due to vitamin B12 deficiency- Primary Other vitamin B12 deficiency anemia Elevated sed rate Elevated sedimentation rate High total serum IgM Chronic fatigue and malaise Chronic fatigue syndrome JOSE RAFAEL (obstructive sleep apnea) Obstructive sleep apnea (adult) (pediatric) documented [facility] this [facility] Diagnosis Vitamin D deficiency Unspecified vitamin D deficiency [facility] Diagnosis Obesity, Class III, BMI >= 40- Primary Morbid obesity Polypharmacy 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-term (current) use of other medications Pre-diabetes Other abnormal glucose [facility] Diagnosis Megaloblastic anemia due to vitamin B12 deficiency- Primary Other vitamin B12 deficiency anemia Elevated sed rate Elevated sedimentation rate [facility] Diagnosis Megaloblastic anemia due to vitamin B12 deficiency- Primary Other vitamin B12 deficiency anemia Elevated sed rate Elevated sedimentation rate [facility] Diagnosis Megaloblastic anemia due to vitamin B12 deficiency- Primary Other vitamin B12 deficiency anemia Elevated sed rate Elevated sedimentation rate High total serum IgM Chronic fatigue and malaise Chronic fatigue syndrome Obstructive sleep apnea syndrome Obstructive sleep apnea (adult) (pediatric) [facility] Diagnosis Megaloblastic anemia due to vitamin B12 deficiency- Primary Other vitamin B12 deficiency anemia Elevated sed rate Elevated sedimentation rate [facility] Diagnosis Other systemic lupus erythematosus with other organ involvement (HCC) 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-term (current) use of other medications [facility] Diagnosis Megaloblastic anemia due to vitamin B12 deficiency- Primary Other vitamin B12 deficiency anemia Chronic fatigue and malaise Chronic fatigue syndrome [facility] Diagnosis High total serum IgM- Primary Low serum IgG for age Current smoker Tobacco use disorder [facility] Obesity, Class II, BMI 35-39.9 Obesity, unspecified Prediabetes Other abnormal glucose [facility] Diagnosis Megaloblastic anemia due to vitamin B12 deficiency- Primary Other vitamin B12 deficiency anemia Elevated sed rate Elevated sedimentation rate [facility] Diagnosis Other systemic lupus erythematosus with other organ involvement (HCC)- Primary Vitamin D deficiency Unspecified vitamin D deficiency Elevated LFTs Other abnormal blood chemistry Anemia of chronic disease Anemia of other chronic disease Elevated sed rate Elevated sedimentation rate Elevated C-reactive protein (CRP) [facility] Diagnosis Other systemic lupus erythematosus [...] Bilateral wrist pain 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, forearm [facility] 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-term (current) use of steroids Steroid-induced osteoporosis Other osteoporosis 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 [facility] Diagnosis Systemic lupus erythematosus with other organ involvement (HCC)- [facility] Diagnosis Megaloblastic anemia due to vitamin B12 deficiency- Primary Other vitamin B12 deficiency anemia High total serum IgM Elevated sed rate Elevated sedimentation rate [facility] Diagnosis Other systemic lupus erythematosus with other organ involvement (HCC)- Primary [facility] Diagnosis Other systemic lupus erythematosus with other organ involvement (HCC) 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-term (current) use of other medications [facility] Diagnosis Megaloblastic anemia due to vitamin B12 deficiency- Primary Other vitamin B12 deficiency anemia Elevated sed rate Elevated sedimentation rate [facility] Diagnosis Megaloblastic anemia due to vitamin B12 deficiency- Primary Other vitamin B12 deficiency anemia Elevated sed rate Elevated sedimentation rate Chronic fatigue and malaise Chronic fatigue syndrome High total serum IgM JOSE RAFAEL (obstructive sleep apnea) Obstructive sleep apnea (adult) (pediatric) [facility] Diagnosis Insulin resistance, unspecified- Primary Depression, recurrent (HCC) Major depressive disorder, recurrent episode, unspecified Chronic pain syndrome documented in this encounter [facility] note* Diagnosis Systemic lupus erythematosus, unspecified SLE type, unspecified organ involvement status ([facility])- Primary [facility] Diagnosis Megaloblastic anemia due to vitamin B12 deficiency- Primary Other vitamin B12 deficiency anemia Elevated sed rate Elevated sedimentation rate [facility] Diagnosis Megaloblastic anemia due to vitamin B12 deficiency- Primary Other vitamin B12 deficiency anemia Elevated sed rate Elevated sedimentation rate documented in this encounter [facility] note* Diagnosis Obesity, Class III, BMI >= 40- Primary Morbid obesity FUO (fever of unknown origin) Fever, unspecified Other chronic pain [facility] Diagnosis Obesity, Class III, BMI >= 40 Morbid obesity documented in this encounter [facility] note* Diagnosis Obesity, Class III, BMI >= 40- Primary Morbid obesity Other chronic pain [facility] Diagnosis Irregular heart rate- Primary [...] Muscle weakness (generalized) [facility] Diagnosis Shortness of breath- Primary [...] Elevated sedimentation rate [facility] Diagnosis Systemic lupus erythematosus with other organ involvement (HCC)- Primary [facility] Diagnosis Systemic lupus erythematosus with other organ involvement (HCC)- Primary [facility] Diagnosis Megaloblastic anemia due to vitamin B12 deficiency- Primary Other vitamin B12 deficiency anemia Elevated sed rate Elevated sedimentation rate [facility] Diagnosis Other systemic lupus erythematosus with other organ involvement (HCC)- Primary Vitamin D deficiency Unspecified vitamin D deficiency Elevated LFTs Other abnormal blood chemistry Anemia of chronic disease Anemia of other chronic disease Elevated sed rate Elevated sedimentation rate Elevated C-reactive protein (CRP) [facility] Diagnosis Megaloblastic anemia due to vitamin B12 deficiency- Primary Other vitamin B12 deficiency anemia Obstructive sleep apnea syndrome Obstructive sleep apnea (adult) (pediatric) Chronic fatigue and malaise Chronic fatigue syndrome High total serum IgM JOSE RAFAEL (obstructive sleep apnea) Obstructive sleep apnea (adult) (pediatric) Somnolence, daytime Hypersomnia, unspecified [facility] Diagnosis Elevated sed rate- Primary Elevated sedimentation rate Megaloblastic anemia due to vitamin B12 deficiency Other vitamin B12 deficiency anemia [facility] Diagnosis Other systemic lupus erythematosus [...] other medications Long-term use of high-risk medication [facility] 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-term (current) use of steroids 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 Bilateral hand pain Pain in limb History of vitamin D deficiency Personal history of nutritional deficiency [facility] Diagnosis Elevated sed rate- Primary Elevated sedimentation rate Megaloblastic anemia due to vitamin B12 deficiency Other vitamin B12 deficiency anemia [facility] Diagnosis Other systemic lupus erythematosus with other organ involvement (HCC) 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-term (current) use of other medications [facility] Diagnosis Systemic lupus erythematosus with other organ involvement (HCC)- Primary [facility] Diagnosis Vitamin B12 deficiency- Primary Other B-complex deficiencies [facility] Diagnosis Elevated sed rate- Primary Elevated sedimentation rate Megaloblastic anemia due to vitamin B12 deficiency Other vitamin B12 deficiency anemia [facility] Diagnosis Elevated sed rate- Primary Elevated sedimentation rate Megaloblastic anemia due to vitamin B12 deficiency Other vitamin B12 deficiency anemia [facility] Diagnosis Megaloblastic anemia due to vitamin B12 deficiency- Primary Other vitamin B12 deficiency anemia Elevated sed rate Elevated sedimentation rate Obstructive sleep apnea syndrome Obstructive sleep apnea (adult) (pediatric) [facility] Diagnosis Elevated LFTs- Primary Other abnormal blood chemistry Elevated C-reactive protein (CRP) Elevated sed rate Elevated sedimentation rate Vitamin D deficiency Unspecified vitamin D deficiency Screening-pulmonary TB Screening examination for pulmonary tuberculosis [facility] Diagnosis Other systemic lupus erythematosus with other organ involvement (HCC) [facility] Diagnosis Systemic lupus erythematosus with [...] of other medications [facility] Diagnosis Onset Date Resolution Status Lupus acute Recurrent Clostridioides difficile diarrhea acute Nipple discharge in female a cute Recurrent Clostridioides difficile diarrhea acute Lumbosacral spondylosis acut e Other chronic pain acute Sacroiliitis acute [facility] Work Phone: Evaluation note* Diagnosis JOSE RAFAEL (obstructive sleep apnea)- Primary Obstructive sleep apnea (adult) (pediatric) Somnolence, daytime Hypersomnia, unspecified [facility] Diagnosis Systemic lupus erythematosus with other organ involvement (HCC)- Primary documented in this encounter [facility] note* Diagnosis Systemic lupus erythematosus with other organ involvement (HCC)- Primary [facility] Diagnosis Onset Date Resolution Status Nipple discharge in female a cute Recurrent Clostridioides difficile diarrhea acute Lumbosacral spondylosis acut e Other chronic pain acute Sacroiliitis acute [facility] Work Phone: Evaluation note* Diagnosis Elevated sed rate- Primary Elevated sedimentation rate Megaloblastic anemia due to vitamin B12 deficiency Other vitamin B12 deficiency anemia documented in this encounter [facility] note* Diagnosis Onset Date Resolution Status Nipple discharge in female a cute Recurrent Clostridioides difficile diarrhea acute Lumbosacral spondylosis acut e Other chronic pain acute Sacroiliitis acute Lumbosacral spondylosis acut e Other chronic pain acute Sacroiliitis acute [facility] Work Phone: Evaluation note* Diagnosis Lumbosacral radiculopathy at L5 Degenerative disc disease, lumbar Cervical radiculopathy at C5 [facility] Diagnosis Onset Date Resolution Status Lumbosacral spondylosis acut e Other chronic pain acute Sacroiliitis acute Lumbosacral spondylosis acut e Other chronic pain acute Sacroiliitis acute [facility] Work Phone: Evaluation note* Diagnosis Other systemic lupus erythematosus with other organ involvement (HCC) [facility] Diagnosis Other systemic lupus [...] both feet Long-term use of high-risk medication [facility] 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-term (current) use of steroids Bilateral hand pain Pain in limb Systemic lupus erythematosus, unspecified SLE type, unspecified organ involvement status (HCC) Vitamin B12 deficiency Other B-complex deficiencies Discoid lupus erythematosus Lupus erythematosus [facility] Diagnosis Nipple discharge Other sign and symptom in breast documented in this encounter [facility]* Diagnosis Elevated sed rate- Primary Elevated sedimentation rate Megaloblastic anemia due to vitamin B12 deficiency Other vitamin B12 deficiency anemia [facility] Diagnosis Abnormal uterine bleeding (AUB) Menorrhagia with regular cycle documented in this encounter [facility]* Diagnosis Megaloblastic anemia due to vitamin B12 deficiency- Primary Other vitamin B12 deficiency anemia High total serum IgM JOSE RAFAEL (obstructive sleep apnea) Obstructive sleep apnea (adult) (pediatric) Elevated sed rate Elevated sedimentation rate Hypogammaglobulinemia (HCC) Hypogammaglobulinaemia, unspecified Frequent infections [facility] Diagnosis Oral thrush- Primary Candidiasis of mouth documented in this encounter [facility]* Diagnosis Oral thrush- Primary Candidiasis of mouth documented in this encounter [facility]* Diagnosis Systemic lupus erythematosus with other organ involvement ([facility])- Primary [facility] Diagnosis LPRD (laryngopharyngeal reflux disease)- Primary Acute laryngitis, without mention of obstruction Acute otalgia, right documented in this encounter [facility]* Diagnosis Autoimmune disease ([facility]) Autoimmune disease, not elsewhere classified Fibromyalgia Unspecified myalgia and myositis Numbness Disturbance of skin sensation documented in this encounter [facility]* Diagnosis Lumbosacral radiculopathy at L5- Primary Degenerative disc disease, lumbar Cervical radiculopathy at C5 documented in this encounter [facility]* Diagnosis Degenerative disc disease, lumbar- Primary Lumbosacral radiculopathy at L5 documented in this encounter [facility]* Diagnosis Frequent infections- Primary Megaloblastic anemia due to vitamin B12 deficiency Other vitamin B12 deficiency anemia Elevated sed rate Elevated sedimentation rate Hypogammaglobulinemia (HCC) Hypogammaglobulinaemia, unspecified Bilateral leg weakness Other musculoskeletal symptoms referable to limbs Discoid lupus erythematosus Lupus erythematosus [facility] Diagnosis Well woman exam with routine gynecological exam Routine gynecological examination Breast cancer screening by mammogram Breast nodule Other (abnormal) findings on radiological examination of breast [facility] Diagnosis Megaloblastic anemia due to vitamin B12 deficiency- Primary Other vitamin B12 deficiency anemia Hypogammaglobulinemia (HCC) Hypogammaglobulinaemia, unspecified Positive blood cultures Bacteremia Malaise and fatigue Other malaise and fatigue SOB (shortness of breath) Shortness of breath [facility] Diagnosis Elevated sed rate- Primary Elevated sedimentation rate Megaloblastic anemia due to vitamin B12 deficiency Other vitamin B12 deficiency anemia Hypogammaglobulinemia (HCC) Hypogammaglobulinaemia, unspecified Frequent infections Bilateral leg weakness Other musculoskeletal symptoms referable to limbs Discoid lupus erythematosus Lupus erythematosus [facility] Diagnosis Diarrhea, unspecified type- Primary Abdominal pressure Abdominal pain, unspecified site [facility] Diagnosis Other iron deficiency anemia- Primary [facility] Diagnosis Other systemic lupus erythematosus with other organ involvement (HCC) [facility] Diagnosis Systemic lupus erythematosus with other organ involvement (HCC)- Primary [facility] Diagnosis Systemic lupus erythematosus (CMS-HCC)- Primary Cold extremities Pain of lower extremity, unspecified laterality Rheumatoid arthritis, involving unspecified site, unspecified whether rheumatoid factor present ([facility]) Current smoker 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 [facility] Diagnosis Systemic lupus erythematosus (CMS-HCC)- Primary Cold extremities Pain of lower extremity, unspecified laterality Rheumatoid arthritis, involving unspecified site, unspecified whether rheumatoid factor present ([facility]-HCC) Current smoker 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 Peripheral vascular disease, unspecified (CMS-HCC)- Primary Peripheral vascular disease, unspecified Cold extremities Systemic lupus erythematosus (CMS-HCC) [facility]* Diagnosis Other systemic lupus erythematosus with other organ involvement (HCC)- Primary Vitamin D deficiency Unspecified vitamin D deficiency Elevated LFTs Other abnormal blood chemistry Anemia of chronic disease Anemia of other chronic disease Elevated sed rate Elevated sedimentation rate Elevated C-reactive protein (CRP) [facility] Diagnosis Onset Date Resolution Status Admit Date Lumbosacral spondylosis acute F ebruary 2024 3:16pm Other chronic pain acute Februa ry 2024 3:16pm Sacroiliitis acute June 3:16pm [facility] Work Phone: Evaluation note* Diagnosis Elevated sed rate- Primary Elevated sedimentation rate Megaloblastic anemia due to vitamin B12 deficiency Other vitamin B12 deficiency anemia Frequent infections Hypogammaglobulinemia (HCC) Hypogammaglobulinaemia, unspecified Bilateral leg weakness Other musculoskeletal symptoms referable to limbs Discoid lupus erythematosus Lupus erythematosus [facility] Diagnosis LPRD (laryngopharyngeal reflux disease) Other diseases of larynx Dry mouth Disturbance of salivary secretion Current smoker Tobacco use disorder Abnormal mouth sensation Other and unspecified diseases of the oral soft tissues [facility] Diagnosis Nipple discharge- Primary Other sign and symptom in breast Other systemic lupus erythematosus with other organ involvement (HCC) On prednisone therapy Long-term use of Plaquenil 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-term (current) use of other medications [facility] Diagnosis Hidradenitis suppurativa- Primary Hidradenitis Other seborrheic dermatitis Lupus erythematosus tumidus (CMS/HCC) Rash and other nonspecific skin eruption Capillary angioma Nevus, non-neoplastic Neoplasm of uncertain behavior of skin [facility] Diagnosis Sinus tachycardia- Primary Other specified cardiac dysrhythmias Shortness of breath Paroxysmal supraventricular tachycardia (CMS-HCC) Paroxysmal supraventricular tachycardia Essential hypertension Unspecified essential hypertension Obstructive sleep apnea syndrome Obstructive sleep apnea (adult) (pediatric) Morbid obesity (Multi) Morbid obesity Current smoker documented in this encounter [facility] Work Phone: Evaluation note* Diagnosis Elevated sed rate- Primary Elevated sedimentation rate Megaloblastic anemia due to vitamin B12 deficiency Other vitamin B12 deficiency anemia Frequent infections Hypogammaglobulinemia (HCC) Hypogammaglobulinaemia, unspecified Bilateral leg weakness Other musculoskeletal symptoms referable to limbs Discoid lupus erythematosus Lupus erythematosus [facility] Diagnosis Systemic lupus erythematosus with other organ involvement (HCC)- Primary [facility] Diagnosis Vitamin B12 deficiency- Primary Other B-complex deficiencies Other iron deficiency anemia Hypogammaglobulinemia (HCC) Hypogammaglobulinaemia, unspecified [facility] Diagnosis Other systemic lupus erythematosus with other organ involvement (HCC) [facility] Diagnosis Thyroid nodule (CMS/HCC)- Primary Nontoxic uninodular goiter LPRD (laryngopharyngeal reflux disease) Acute laryngitis, without mention of obstruction [facility] Diagnosis Hypogammaglobulinemia (HCC)- Primary Hypogammaglobulinaemia, unspecified Vitamin B12 deficiency Other B-complex deficiencies Other iron deficiency anemia Megaloblastic anemia due to vitamin B12 deficiency Other vitamin B12 deficiency anemia [facility] Diagnosis Frequent infections- Primary Hypogammaglobulinemia (HCC) Hypogammaglobulinaemia, unspecified Bilateral leg weakness Other musculoskeletal symptoms referable to limbs Discoid lupus erythematosus Lupus erythematosus Elevated sed rate Elevated sedimentation rate Megaloblastic anemia due to vitamin B12 deficiency Other vitamin B12 deficiency anemia [facility] Diagnosis Other systemic lupus erythematosus with other organ involvement (HCC)- Primary [facility] Diagnosis Other systemic lupus erythematosus with other organ involvement (HCC) [facility] Diagnosis Systemic lupus erythematosus with other organ involvement (HCC)- Primary [facility] Diagnosis Fibromyalgia- Primary Mylagia and myositis, unspecified Family history of disease of aorta Family history of cancer Family history of unspecified malignant neoplasm [facility] Diagnosis Frequent infections- Primary Hypogammaglobulinemia (HCC) [...] vitamin D deficiency [facility] Diagnosis Other systemic lupus erythematosus with other organ involvement (HCC)- Primary [facility] Diagnosis Other systemic lupus erythematosus with other organ involvement (HCC)- Primary Elevated LFTs Other abnormal blood chemistry Anemia of chronic disease Anemia of other chronic disease Elevated sed rate Elevated sedimentation rate Elevated C-reactive protein (CRP) Vitamin B12 deficiency Other B-complex deficiencies Screening-pulmonary TB Screening examination for pulmonary tuberculosis Vitamin D deficiency Unspecified vitamin D deficiency [facility] Diagnosis Other systemic lupus [...] both feet Long-term use of high-risk medication 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-term (current) use of steroids Bilateral hand pain Pain in limb Family history of Crohn's disease Family history of other digestive disorders 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 Bilateral wrist pain 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, forearm [facility] Diagnosis Other systemic lupus erythematosus with other organ involvement (HCC)- Primary [facility] Diagnosis Generalized articular hypermobility- Primary Other joint derangement, not elsewhere classified, multiple sites Chronic pain syndrome Discoid lupus erythematosus Lupus erythematosus Family history of pneumothorax in son Family history of other condition Family history of cancer Family history of unspecified malignant neoplasm Family history of mild aortic dilation in daughter Family history of other cardiovascular diseases [facility] Diagnosis Elevated sed rate- Primary Elevated sedimentation rate Megaloblastic anemia due to vitamin B12 deficiency Other vitamin B12 deficiency anemia Frequent infections Hypogammaglobulinemia (HCC) Hypogammaglobulinaemia, unspecified Bilateral leg weakness Other musculoskeletal symptoms referable to limbs Discoid lupus erythematosus Lupus erythematosus [facility] Diagnosis Other systemic lupus erythematosus with other organ involvement (HCC)- Primary [facility] Diagnosis Hypogammaglobulinemia (HCC)- Primary Hypogammaglobulinaemia, unspecified [facility] Diagnosis Hidradenitis suppurativa- Primary Hidradenitis Pain Generalized pain Acne vulgaris Other acne [facility] Diagnosis Hypogammaglobulinemia (HCC)- Primary Hypogammaglobulinaemia, unspecified Vitamin B12 deficiency Other B-complex deficiencies Other iron deficiency anemia Malaise and fatigue Other malaise and fatigue Shortness of breath Other specified disorders of breast Pre-diabetes Other abnormal glucose Gastro-esophageal reflux disease without esophagitis Esophageal reflux [facility] Diagnosis Elevated sed rate- Primary Elevated sedimentation rate Megaloblastic anemia due to vitamin B12 deficiency Other vitamin B12 deficiency anemia Frequent infections Hypogammaglobulinemia (HCC) Hypogammaglobulinaemia, unspecified Bilateral leg weakness Other musculoskeletal symptoms referable to limbs Discoid lupus erythematosus Lupus erythematosus [facility] Diagnosis Other systemic lupus erythematosus with other organ involvement (HCC)- Primary [facility] Diagnosis Other systemic lupus erythematosus with other organ involvement (HCC)- Primary Elevated LFTs Other abnormal blood chemistry Anemia of chronic disease Anemia of other chronic disease Elevated sed rate Elevated sedimentation rate Elevated C-reactive protein (CRP) Vitamin D deficiency Unspecified vitamin D deficiency Vitamin B12 deficiency Other B-complex deficiencies Screening-pulmonary TB Screening examination for pulmonary tuberculosis documented in this encounter [facility] note* Diagnosis Other systemic lupus erythematosus with other organ involvement (HCC)- Primary Elevated LFTs Other abnormal blood chemistry Anemia of chronic disease Anemia of other chronic disease Elevated C-reactive protein (CRP) Elevated sed rate Elevated sedimentation rate Vitamin D deficiency Unspecified vitamin D deficiency [facility] Diagnosis Frequent infections- Primary Hypogammaglobulinemia (HCC) Hypogammaglobulinaemia, unspecified Bilateral leg weakness Other musculoskeletal symptoms referable to limbs Discoid lupus erythematosus Lupus erythematosus Elevated sed rate Elevated sedimentation rate Megaloblastic anemia due to vitamin B12 deficiency Other vitamin B12 deficiency anemia [facility]* Diagnosis Pilonidal cyst- Primary Hidradenitis suppurativa Hidradenitis documented in this encounter [facility] HealthcareHistory general Narrative - Reported* Type Description Date Medical History hyperlipidemia Medical History insulin resistance Medical History CMV Surgical History cyst removal pilonidal Surgical History D&C Hospitalization History [facility] Other Hospital Discharge instructionsAmbulatory Orders* Referral to Gastroenterology Location: None [facility] Work Phone: InstructionsNot on filedocumented in this encounter [facility] for referral (narrative)* Diagnostic Procedure Only (Routine) - Pending Review Specialty Diagnoses / Procedures Referred By Nahid t Referred To Contact XR IMAGING Diagnoses Steroid-induced osteoporosis Procedures DXA-FOREARM SKELETON DXA BONE DENSITY STUDY /SITES APPENDICLR Lynne Perera MD [address] [place] [address] [place] [id number] Referral ID Status Reason Start Date Expiration Date Visits Requested Visits Authorized [id number] Pending Review Auto-Generat ed Referral 02/04/2023 03/05/2024 1 1 [facility] for referral (narrative)* Consultation (Routine) - Authorized Specialty Diagnoses / Procedures Referred By Nahid t Referred To Contact Cardiology Diagnoses Irregular heart rate Essential hypertension Autonomic dysfunction Obstructive sleep apnea syndrome Primary hypertension Procedures Follow Up In Cardiology Michelle Jasmine APRN-SPORTS MANAGEMENT INTERN [address] [facility] [address] [place] [address] Aurora Patel MD [address] [address] Referral ID Status Reason Start Date Expiration Date V isits Requested Visits Authorized [id number] Authorized 06/09/2023 06/08/2024 1 1 * Cardiovascular (Routine) - Pending Review Specialty Diagnoses / Procedures Referred By Contiliana t Referred To Contact Cardiology Diagnoses Irregular heart rate Procedures Holter Or Event Principal Clerk Michelle Jasmine APRN-CNP [address] [facility] [address] [place] [address] Referral ID Status Reason Start Date Expiration Date V isits Requested Visits Authorized Pending Review 06/09/2023 06/08/2024 1 1 * CV Imaging (Routine) - Pending Review Specialty Diagnoses / Procedures Referred By Contac t Referred To Contact Cardiology Diagnoses Irregular heart rate Obstructive sleep apnea syndrome Procedures Transthoracic Echo (TTE) Complete IN ECHO TTHRC R-T 2D W/WOM-MODE COMPL SPEC&COLR D Michelle Jasmine APRNSTATE REFORM SCHOOL FOR BOYS [address] [facility] [address] [place] [address] Referral ID Status Reason Start Date Expiration Date Visits Requested Visits Authorized Pending Review Perform Procedure 06/09/2023 06/08/2024 1 1 * Cardiovascular (Routine) - Authorized Specialty Diagnoses / Procedures Referred By Contac t Referred To Contact Diagnoses Irregular heart rate Procedures ECG 12 Lead Michelle Jasmine APRN-SPORTS MANAGEMENT INTERN 254 [facility] [address] [place] [address] Referral ID Status Reason Start Date Expiration Date V isits Requested Visits Authorized [id number] Authorized 06/09/2023 06/08/2024 1 1 [facility] Work Phone: [facility] Consultation (Routine) - Pending Review Specialty Diagnoses / Procedures Referred By Contac t Referred To Contact Pain Medicine Diagnoses Lumbosacral radiculopathy at L5 Degenerative disc disease, lumbar Procedures IN OFFICE/OUTPATIENT NEW HIGH MDM 60 MINUTES Kade Richardson MD [address] [place] [address] [place] [address] Adolfo Kang MD [address] [address] Referral ID Status Reason Start Date Expiration Date Visits Requested Visits Authorized [id number] Pending Review Specialty Services Required 01/20/2024 07/18/2024 1 1 [facility] ([facility]arr[facility])No reason for referral information [facility] Work Phone: Reason for visit Narrative* [place] Prior Authorization (Routine) - Authorized Specialty Diagnoses / Procedures Referred By Contac t Referred To Contact Diagnoses Frequent infections Hypogammaglobulinemia (HCC) Bilateral leg weakness Discoid lupus erythematosus Procedures GAMMAGARD LIQUID INJECTION Vera Najera MD [address] [place] [address] [place] [address] Phone: tel: fax: Hematology/Oncology [address] [place] [address] [place] [address] Phone: tel: fax: Referral ID Status Reason Start Date Expiration Date V isits Requested Visits Authorized [id number] Authorized 04/03/2024 10/01/2024 7 7 [facility] for visit Narrative* [place] Prior Authorization (Routine) - Authorized Specialty Diagnoses / Procedures Referred By Contac t Referred To Contact Diagnoses Other systemic lupus erythematosus with other organ involvement (HCC) Procedures BELIMUMAB INJECTION Lynne Ni MD [address] [place] [address] Phone: tel: fax: Lynne Ni MD [address] [place] [address] Phone: tel: fax: Referral ID Status Reason Start Date Expiration Date V isits Requested Visits Authorized [id number] Authorized 09/08/2024 03/10/2025 8 8 [facility] for visit Narrative* [place] Prior Authorization (Routine) - Authorized Specialty Diagnoses / Procedures Referred By Contac t Referred To Contact Diagnoses Other iron deficiency anemia Procedures IRON SUCROSE INJECTION PER 1 MG Vaibhav Carvalho APRN.[facility] [address] [facility] [place] [address] Phone: tel: fax: Hematology/Oncology [address] [facility] [place] [address] Phone: tel: fax: Referral ID Status Reason Start Date Expiration Date V isits Requested Visits Authorized [id number] Authorized 06/16/2024 05/23/2025 99 99 [facility] for visit Narrative* [place] Prior Authorization (Routine) - Authorized Specialty Diagnoses / Procedures Referred By Contac t Referred To Contact Diagnoses Frequent infections Hypogammaglobulinemia (HCC) Bilateral leg weakness Discoid lupus erythematosus Procedures GAMMAGARD LIQUID INJECTION Vera Najera MD [address] [facility] [place] [address] Phone: tel: fax: Hematology/Oncology [address] [facility] [address] [address] [place] [id number] Phone: tel: fax: Referral ID Status Reason Start Date Expiration Date Visits Requested Visits Authorized [id number] Authorized Patient Cleared - Admin/Chairm an/Director advise to proceed or did not respond 10/30/2024 10/30/2025 19 19 [facility] for visit Narrative* [place] Prior Authorization (Routine) - Authorized Specialty Diagnoses / Procedures Referred By Contac t Referred To Contact Diagnoses Frequent infections Hypogammaglobulinemia (HCC) Bilateral leg weakness Discoid lupus erythematosus Procedures GAMMAGARD LIQUID INJECTION Vera Najera MD [address] [facility] [place] [address] Phone: tel: fax: Hematology/Oncology [address] [facility] [place] [address] Phone: tel: fax: Referral ID Status Reason Start Date Expiration Date Visits Requested Visits Authorized [id number] Authorized Patient Cleared - Admin/Chairm an/Director advise to proceed or did not respond 10/30/2024 10/30/2025 18 18 [facility]* [place] Prior Authorization (Routine) - Authorized Specialty Diagnoses / Procedures Referred By Contac t Referred To Contact Diagnoses Frequent infections Hypogammaglobulinemia (HCC) Bilateral leg weakness Discoid lupus erythematosus Procedures GAMMAGARD LIQUID INJECTION IMMUNE GLOBULIN INJECTION Vera Najera MD [address] [facility] [place] [address] Phone: tel: fax: Hematology/Oncology [address] [facility] [place] [address] Phone: tel: fax: Referral ID Status Reason Start Date Expiration Date Visits Requested Visits Authorized [id number] Authorized Patient Cleared - Admin/Chairm an/Director advise to proceed or did not respond 10/30/2024 10/30/2025 19 19 [facility] Summary Purpose Family History No Family History Records Found Relationship Condition Age at Onset Recorded Date/T michelle father Unknown Malignant neoplasm Unknown Relationship Condition Age at Onset Recorded Date/T michelle father Malignant neoplasm of stomach Unknown Unknown mother Crohn's disease Unknown Advance Directives No Advanced Directives Records FoundDocuments on File Type Date Recorded Patient Staker Surveying Expl anation ACP-Advance Directive ACP-Power of Refractory Tile Helper Latest Code Status on File Code Status Date Activated Date Inactivated Comments Full Code 10/07/2020 8:32 AM Documents on File Type Date Recorded Patient Staker Surveying Expl anation Advance Directive(s) 09/13/2015 8:36 AM Advance Directive Response Recorded Date/ Time Advance Directives No September 17 2:40pm Advance Directive Response Recorded Date/ Time Advance Directives No September 17 1:40pm Reason for Referral Specialty Diagnoses / Procedures Referred By Contac t Referred To Contact Infectious Diseases Diagnoses Positive blood cultures Procedures CONSULT TO INFECTIOUS DISEASES OFFICE/OUTPATIENT [facility] HIGH MDM 60 MINUTES Vaibhav Carvalho APRN.[employer]OR[employer] MANAGEMENT INTERN [address] [facility] [place] [address] Referral ID Status Reason Start Date Expiration Date Visits Requested Visits Authorized [id number] Authorized PCP Requested Referral 06/13/2024 06/13/2025 1 1 Specialty Diagnoses / Procedures Referred By Contac t Referred To Contact Diagnoses Paroxysmal supraventricular tachycardia PAC (premature atrial contraction) Procedures ECG 12 Lead Lois Holm MD [address] [place] [address] [address], [address] [address] Referral ID Status Reason Start Date Expiration Date V isits Requested Visits Authorized [id number] Authorized 07/13/2023 07/12/2024 1 1 Specialty Diagnoses / Procedures Referred By Contac t Referred To Contact Cardiology Diagnoses Shortness of breath Paroxysmal supraventricular tachycardia PAC (premature atrial contraction) Procedures Follow Up In Cardiology Lois Holm MD [address] [place] [address] 2, [address] [address] Lois Holm MD [address] [place] [address] 2, [address] [address] Referral ID Status Reason Start Date Expiration Date V isits Requested Visits Authorized [id number] Authorized 07/13/2023 07/12/2024 1 1 Specialty Diagnoses / Procedures Referred By Contac t Referred To Contact Diagnoses Obesity, Class III, BMI 40-49.9 (morbid obesity) (HCC) Pre-diabetes Christie Phan MD [address] [place], [place] [id number] Referral ID Status Reason Start Date Expiration Date Visits Re quested Visits Authorized [id number] Closed 1 1 Specialty Diagnoses / Procedures Referred By Contac t Referred To Contact Diagnoses Wound healing, delayed Procedures CONSULT TO MEDICAL GENETICS - GENERAL OFFICE/OUTPATIENT [facility] 60-74 MINUTES MEDICAL GENETICS COUNSELING EACH 30 MINUTES Misty Nelson MD [facility] [place] [address] [facility] [place] [address] [place] [id number] Referral ID Status Reason Start Date Expiration Date Visits Requested Visits Authorized [id number] Authorized PCP Requested Referral Auto-Generate d Referral 2 03/10/2023 1 1 Specialty Diagnoses / Procedures Referred By Contac t Referred To Contact Neurology Diagnoses POTS (postural orthostatic tachycardia syndrome) Procedures CONSULT TO NEUROLOGY OFFICE/OUTPATIENT [facility] 60-74 MINUTES Christie Phan MD [address] [place] [address] Referral ID Status Reason Start Date Expiration Date Visits Requested Visits Authorized [id number] Authorized PCP Requested Referral 2 03/12/2023 1 1 Specialty Diagnoses / Procedures Referred By Contac t Referred To Contact Immunology Diagnoses Raised level of immunoglobulins Procedures CONSULT TO IMMUNOLOGY OFFICE/OUTPATIENT [facility] 60-74 MINUTES Christie Phan MD [address] [place] [address] Referral ID Status Reason Start Date Expiration Date V isits Requested Visits Authorized [id number] Closed PCP Requested Referral 03/09/2022 03/09/2023 1 1 Specialty Diagnoses / Procedures Referred By Contac t Referred To Contact [facility] Diagnoses Somnolence, daytime Snoring Procedures HOME SLEEP APNEA TEST (HSAT) SLEEP STD AIRFLOW HRT RATE&O2 SAT EFFORT UNATT Christie Phan MD [address] [place] [address] [facility] [address] [place] [address] Referral ID Status Reason Start Date Expiration Date Visits Requested Visits Authorized [id number] Authorized Auto-Generat ed Referral 2 03/09/2023 1 1 Specialty Diagnoses / Procedures Referred By Contac t Referred To Contact Diagnoses Somnolence, daytime Chronic fatigue and malaise Obesity, unspecified classification, unspecified obesity type, unspecified whether serious comorbidity present Procedures CONSULT TO LIFESTYLE MEDICINE MD OFFICE/OUTPATIENT [facility] 60-74 MINUTES Vera Najera MD [address] [place] [address] [address] [place] [phone] Referral ID Status Reason Start Date Expiration Date V isits Requested Visits Authorized [id number] Closed PCP Requested Referral 03/04/2022 03/04/2023 1 1 Specialty Diagnoses / Procedures Referred By Contac t Referred To Contact Diagnoses Somnolence, daytime Snoring Procedures CONSULT TO SLEEP MEDICINE - ADULT OFFICE/OUTPATIENT [facility] 60-74 MINUTES Vera Najera MD [address] [place] [address] [place] [id number] Referral ID Status Reason Start Date Expiration Date Visits Requested Visits Authorized [id number] Authorized PCP Requested Referral 03/04/2023 1 1 [...] content) DATE CREATED AUTHOR 09/20/2018 [facility] DATE CREATED AUTHOR AUTHOR'S ORGANIZ ATION 12/10/2018 [facility] DATE CREATED AUTHOR AUTHOR'S ORGANIZ ATION 01/13/2019 [facility] DATE CREATED AUTHOR AUTHOR'S ORGANIZ ATION 06/28/2021 [facility] DATE CREATED AUTHOR AUTHOR'S ORGANIZ ATION 10/01/2022 [facility] DATE CREATED AUTHOR AUTHOR'S ORGANIZ ATION 03/10/2024 [facility] DATE CREATED AUTHOR AUTHOR'S ORGANIZ ATION 07/22/2024 [facility] DATE CREATED AUTHOR AUTHOR'S ORGANIZ ATION 07/28/2024 [facility] DATE CREATED AUTHOR AUTHOR'S ORGANIZ ATION 02/07/2025 [facility] DATE CREATED AUTHOR AUTHOR'S ORGANIZ ATION 02/16/2025 [facility] DATE CREATED AUTHOR AUTHOR'S ORGANIZ ATION 02/26/2025 [place] Reason for Visit (unrecogniz ed section and content) Reason Comments Infection Follow Up Specialty Diagnoses / Procedures Referred By Nahid tran Referred To Contact Infectious Diseases Diagnoses Positive blood cultures Procedures CONSULT TO INFECTIOUS DISEASES OFFICE/OUTPATIENT [facility] 60 MINUTES Vaibhav Carvalho, MAUR[place]IO.[address] [place] [address] Phone: tel: fax: Referral ID Status Reason Start Date Expiration Date V isits Requested Visits Authorized [id number] Closed PCP Requested Referral 06/13/2024 06/13/2025 1 1 Status Reason Specialty Diagnoses / Procedures Referre d By Contact Referred To Contact [facility] Reason Comments Pain ongoing generalized pain. [...] HIGH MDM 60-74 MINUTES Vera Najera MD [address] [place] [address] [place] [address] Referral ID Status Reason Start Date Expiration Date V isits Requested Visits Authorized [id number] Closed PCP Requested Referral 03/04/2022 03/04/2023 1 1 Reason Comments High Total serum IgM Anemia Reason Comments Consult Specialty Diagnoses / Procedures Referred By Nahid t Referred To Contact Immunology Diagnoses Raised level of immunoglobulins Procedures CONSULT TO IMMUNOLOGY OFFICE/OUTPATIENT NEW HIGH MDM 60-74 MINUTES Christie Phan MD [address] [place] [phone] Referral ID Status Reason Start Date Expiration Date V isits Requested Visits Authorized [id number] Closed PCP Requested Referral 03/09/2022 03/09/2023 1 1 Reason Comments Pneumovax Reason Comments Refill Request Reason Comments Appointment Inside [employer] - Other Reason Comments Future Appointment Scheduling questions /concerns Reason Comments PAP Therapy Follow Up Reason Comments PAP Rx Faxed [facility] Josh [place] Reason Comments Anemia 8 week [...] rate Procedures ECG 12 Lead Michelle Jasmine, PENSION FUND MANAGER-SPORTS MANAGEMENT INTERN [address] [facility] [address] [place] [address] Referral ID Status Reason Start Date Expiration Date V isits Requested Visits Authorized [id number] Authorized 06/09/2023 06/08/2024 1 1 Reason Comments New Patient Visit Leg Swelling, test r esults from [place] Specialty Diagnoses / Procedures Referred By Contac t Referred To Contact Diagnoses Paroxysmal supraventricular tachycardia PAC (premature atrial contraction) Procedures ECG 12 Lead Lois Holm MD 703 [facility] 2, [address] [place] [address] Referral ID Status Reason Start Date Expiration Date V isits Requested Visits Authorized [id number] Authorized 07/13/2023 07/12/2024 1 1 Reason Onset [...] Reason Comments Orders PAP RX. 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 Reason Comments Med [...] GAMMAGARD LIQUID INJECTION Vera Najera MD [address] [facility] [place] [address] [facility] [address] [place] [address] Referral ID Status Reason Start Date Expiration Date V isits Requested Visits Authorized [id number] Authorized 04/03/2024 10/01/2024 7 7 Reason Comments [...] of lower extremity, unspecified laterality Gay Enciso, PENSION FUND MANAGER-SPORTS MANAGEMENT INTERN [address] [place] [address] Phone: tel:[phone] fax: Hayden Arciniega MD [address] [place] [address] Phone: tel:[phone] fax: Referral ID Status Reason Start Date Expiration Date Visits Requested Visits Authorized [id number] Pending Review Specialty Services Required 03/15/2025 1 [...] Up In Cardiology Lois Holm MD 703 [facility] 2, [address] [address] Phone: tel: fax: Lois Holm MD 703 [facility] 2, [address] [address] Phone: tel: fax: Referral ID Status Reason Start Date Expiration Date V isits Requested Visits Authorized [id number] Authorized 07/13/2023 07/12/2024 1 1 Reason Comments Med Change Request Reason Comments Patient Question Reason Onset Date Comments SPP Inflammatory Conditions - Medication Refill 08/17/2024 [place] Reason Onset Date Comments Refill Request 09/01/2024 Reason Comments Thyroid Nodule Follow up ultrasound [facility] 08/24/24 Reason Comments Megaloblastic anemia due [...] Procedures EST PATIENT Self Ny Lance MD [address] [address] Phone: tel: fax: Referral ID Status Reason Start Date Expiration Date V isits Requested Visits Authorized [id number] Pending Review 09/19/2024 12/18/2024 1 1 Reason [...] alcohol or drug abuse patient.[facility] the event this information is protected by the Federal Confidentiality of Alcohol and Drug Abuse Patient Records regulations: The Federal rules restrict any use of the information to criminally investigate or prosecute any alcohol or drug abuse patient.[facility] Center[facility] the event this information is protected by the Federal Confidentiality of Alcohol and Drug Abuse Patient Records regulations: The Federal rules restrict any use of the information to criminally investigate or prosecute any alcohol or drug abuse patient.[facility] Center[facility] the event this information is protected by the Federal Confidentiality of Alcohol and Drug Abuse Patient Records regulations: The Federal rules restrict any use of the information to criminally investigate or prosecute any alcohol or drug abuse patient.[facility] Center[facility] the event this information is protected by the Federal Confidentiality of Alcohol and Drug Abuse Patient Records regulations: The Federal rules restrict any use of the information to criminally investigate or prosecute any alcohol or drug abuse patient.[facility] CenterIn the event this information is protected by the Federal Confidentiality of Alcohol and Drug Abuse Patient Records regulations: The Federal rules restrict any use of the information to criminally investigate or prosecute any alcohol or drug abuse patient.[facility] CenterIn the event this information is protected by the Federal Confidentiality of Alcohol and Drug Abuse Patient Records regulations: The Federal rules restrict any use of the information to criminally investigate or prosecute any alcohol or drug abuse patient.[facility] CenterIn the event this information is protected by the Federal Confidentiality of Alcohol and Drug Abuse Patient Records regulations: The Federal rules restrict any use of the information to criminally investigate or prosecute any alcohol or drug abuse patient.[facility] CenterIn the event this information is protected by the Federal Confidentiality of Alcohol and Drug Abuse Patient Records regulations: The Federal rules restrict any use of the information to criminally investigate or prosecute any alcohol or drug abuse patient.[facility] CenterIn the event this information is protected by the Federal Confidentiality of Alcohol and Drug Abuse Patient Records regulations: The Federal rules restrict any use of the information to criminally investigate or prosecute any alcohol or drug abuse patient.[facility] CenterIn the event this information is protected by the Federal Confidentiality of Alcohol and Drug Abuse Patient Records regulations: The Federal rules restrict any use of the information to criminally investigate or prosecute any alcohol or drug abuse patient.[facility] CenterIn the event this information is protected by the Federal Confidentiality of Alcohol and Drug Abuse Patient Records regulations: The Federal rules restrict any use of the information to criminally investigate or prosecute any alcohol or drug abuse patient.[facility] CenterIn the event this information is protected by the Federal Confidentiality of Alcohol and Drug Abuse Patient Records regulations: The Federal rules restrict any use of the information to criminally investigate or prosecute any alcohol or drug abuse patient.[facility] CenterIn the event this information is protected by the Federal Confidentiality of Alcohol and Drug Abuse Patient Records regulations: The Federal rules restrict any use of the information to criminally investigate or prosecute any alcohol or drug abuse patient.[facility] CenterIn the event this information is protected by the Federal Confidentiality of Alcohol and Drug Abuse Patient Records regulations: The Federal rules restrict any use of the information to criminally investigate or prosecute any alcohol or drug abuse patient.[facility] CenterIn the event this information is protected by the Federal Confidentiality of Alcohol and Drug Abuse Patient Records regulations: The Federal rules restrict any use of the information to criminally investigate or prosecute any alcohol or drug abuse patient.[facility] CenterIn the event this information is protected by the Federal Confidentiality of Alcohol and Drug Abuse Patient Records regulations: The Federal rules restrict any use of the information to criminally investigate or prosecute any alcohol or drug abuse patient.[facility] CenterIn the event this information is protected by the Federal Confidentiality of Alcohol and Drug Abuse Patient Records regulations: The Federal rules restrict any use of the information to criminally investigate or prosecute any alcohol or drug abuse patient.[facility] CenterIn the event this information is protected by the Federal Confidentiality of Alcohol and Drug Abuse Patient Records regulations: The Federal rules restrict any use of the information to criminally investigate or prosecute any alcohol or drug abuse patient.[facility] CenterIn the event this information is protected by the Federal Confidentiality of Alcohol and Drug Abuse Patient Records regulations: The Federal rules restrict any use of the information to criminally investigate or prosecute any alcohol or drug abuse patient.[facility] CenterIn the event this information is protected by the Federal Confidentiality of Alcohol and Drug Abuse Patient Records regulations: The Federal rules restrict any use of the information to criminally investigate or prosecute any alcohol or drug abuse patient.[facility] CenterIn the event this information is protected by the Federal Confidentiality of Alcohol and Drug Abuse Patient Records regulations: The Federal rules restrict any use of the information to criminally investigate or prosecute any alcohol or drug abuse patient.[facility] CenterIn the event this information is protected by the Federal Confidentiality of Alcohol and Drug Abuse Patient Records regulations: The Federal rules restrict any use of the information to criminally investigate or prosecute any alcohol or drug abuse patient.[facility] CenterIn the event this information is protected by the Federal Confidentiality of Alcohol and Drug Abuse Patient Records regulations: The Federal rules restrict any use of the information to criminally investigate or prosecute any alcohol or drug abuse patient.[facility] CenterIn the event this information is protected by the Federal Confidentiality of Alcohol and Drug Abuse Patient Records regulations: The Federal rules restrict any use of the information to criminally investigate or prosecute any alcohol or drug abuse patient.[facility] CenterIn the event this information is protected by the Federal Confidentiality of Alcohol and Drug Abuse Patient Records regulations: The Federal rules restrict any use of the information to criminally investigate or prosecute any alcohol or drug abuse patient.[facility] CenterIn the event this information is protected by the Federal Confidentiality of Alcohol and Drug Abuse Patient Records regulations: The Federal rules restrict any use of the information to criminally investigate or prosecute any alcohol or drug abuse patient.[facility] CenterIn the event this information is protected by the Federal Confidentiality of Alcohol and Drug Abuse Patient Records regulations: The Federal rules restrict any use of the information to criminally investigate or prosecute any alcohol or drug abuse patient.[facility] CenterIn the event this information is protected by the Federal Confidentiality of Alcohol and Drug Abuse Patient Records regulations: The Federal rules restrict any use of the information to criminally investigate or prosecute any alcohol or drug abuse patient.[facility] CenterIn the event this information is protected by the Federal Confidentiality of Alcohol and Drug Abuse Patient Records regulations: The Federal rules restrict any use of the information to criminally investigate or prosecute any alcohol or drug abuse patient.[facility] CenterIn the event this information is protected by the Federal Confidentiality of Alcohol and Drug Abuse Patient Records regulations: The Federal rules restrict any use of the information to criminally investigate or prosecute any alcohol or drug abuse patient.[facility] CenterIn the event this information is protected by the Federal Confidentiality of Alcohol and Drug Abuse Patient Records regulations: The Federal rules restrict any use of the information to criminally investigate or prosecute any alcohol or drug abuse patient.[facility] CenterIn the event this information is protected by the Federal Confidentiality of Alcohol and Drug Abuse Patient Records regulations: The Federal rules restrict any use of the information to criminally investigate or prosecute any alcohol or drug abuse patient.[facility] CenterIn the event this information is protected by the Federal Confidentiality of Alcohol and Drug Abuse Patient Records regulations: The Federal rules restrict any use of the information to criminally investigate or prosecute any alcohol or drug abuse patient.[facility] CenterIn the event this information is protected by the Federal Confidentiality of Alcohol and Drug Abuse Patient Records regulations: The Federal rules restrict any use of the information to criminally investigate or prosecute any alcohol or drug abuse patient.[facility] CenterIn the event this information is protected by the Federal Confidentiality of Alcohol and Drug Abuse Patient Records regulations: The Federal rules restrict any use of the information to criminally investigate or prosecute any alcohol or drug abuse patient.[facility] CenterIn the event this information is protected by the Federal Confidentiality of Alcohol and Drug Abuse Patient Records regulations: The Federal rules restrict any use of the information to criminally investigate or prosecute any alcohol or drug abuse patient.[facility] CenterIn the event this information is protected by the Federal Confidentiality of Alcohol and Drug Abuse Patient Records regulations: The Federal rules restrict any use of the information to criminally investigate or prosecute any alcohol or drug abuse patient.[facility] CenterIn the event this information is protected by the Federal Confidentiality of Alcohol and Drug Abuse Patient Records regulations: The Federal rules restrict any use of the information to criminally investigate or prosecute any alcohol or drug abuse patient.[facility] CenterIn the event this information is protected by the Federal Confidentiality of Alcohol and Drug Abuse Patient Records regulations: The Federal rules restrict any use of the information to criminally investigate or prosecute any alcohol or drug abuse patient.[facility] CenterIn the event this information is protected by the Federal Confidentiality of Alcohol and Drug Abuse Patient Records regulations: The Federal rules restrict any use of the information to criminally investigate or prosecute any alcohol or drug abuse patient.[facility] CenterIn the event this information is protected by the Federal Confidentiality of Alcohol and Drug Abuse Patient Records regulations: The Federal rules restrict any use of the information to criminally investigate or prosecute any alcohol or drug abuse patient.[facility] CenterIn the event this information is protected by the Federal Confidentiality of Alcohol and Drug Abuse Patient Records regulations: The Federal rules restrict any use of the information to criminally investigate or prosecute any alcohol or drug abuse patient.[facility] CenterIn the event this information is protected by the Federal Confidentiality of Alcohol and Drug Abuse Patient Records regulations: The Federal rules restrict any use of the information to criminally investigate or prosecute any alcohol or drug abuse patient.[facility] CenterIn the event this information is protected by the Federal Confidentiality of Alcohol and Drug Abuse Patient Records regulations: The Federal rules restrict any use of the information to criminally investigate or prosecute any alcohol or drug abuse patient.[facility] CenterIn the event this information is protected by the Federal Confidentiality of Alcohol and Drug Abuse Patient Records regulations: The Federal rules restrict any use of the information to criminally investigate or prosecute any alcohol or drug abuse patient.[facility] CenterIn the event this information is protected by the Federal Confidentiality of Alcohol and Drug Abuse Patient Records regulations: The Federal rules restrict any use of the information to criminally investigate or prosecute any alcohol or drug abuse patient.[facility] CenterIn the event this information is protected by the Federal Confidentiality of Alcohol and Drug Abuse Patient Records regulations: The Federal rules restrict any use of the information to criminally investigate or prosecute any alcohol or drug abuse patient.[facility] CenterIn the event this information is protected by the Federal Confidentiality of Alcohol and Drug Abuse Patient Records regulations: The Federal rules restrict any use of the information to criminally investigate or prosecute any alcohol or drug abuse patient.[facility] CenterIn the event this information is protected by the Federal Confidentiality of Alcohol and Drug Abuse Patient Records regulations: The Federal rules restrict any use of the information to criminally investigate or prosecute any alcohol or drug abuse patient.[facility] CenterIn the event this information is protected by the Federal Confidentiality of Alcohol and Drug Abuse Patient Records regulations: The Federal rules restrict any use of the information to criminally investigate or prosecute any alcohol or drug abuse patient.[facility] CenterIn the event this information is protected by the Federal Confidentiality of Alcohol and Drug Abuse Patient Records regulations: The Federal rules restrict any use of the information to criminally investigate or prosecute any alcohol or drug abuse patient.[facility] CenterIn the event this information is protected by the Federal Confidentiality of Alcohol and Drug Abuse Patient Records regulations: The Federal rules restrict any use of the information to criminally investigate or prosecute any alcohol or drug abuse patient.[facility] CenterIn the event this information is protected by the Federal Confidentiality of Alcohol and Drug Abuse Patient Records regulations: The Federal rules restrict any use of the information to criminally investigate or prosecute any alcohol or drug abuse patient.[facility] CenterIn the event this information is protected by the Federal Confidentiality of Alcohol and Drug Abuse Patient Records regulations: The Federal rules restrict any use of the information to criminally investigate or prosecute any alcohol or drug abuse patient.[facility] CenterIn the event this information is protected by the Federal Confidentiality of Alcohol and Drug Abuse Patient Records regulations: The Federal rules restrict any use of the information to criminally investigate or prosecute any alcohol or drug abuse patient.[facility] CenterIn the event this information is protected by the Federal Confidentiality of Alcohol and Drug Abuse Patient Records regulations: The Federal rules restrict any use of the information to criminally investigate or prosecute any alcohol or drug abuse patient.[facility] CenterIn the event this information is protected by the Federal Confidentiality of Alcohol and Drug Abuse Patient Records regulations: The Federal rules restrict any use of the information to criminally investigate or prosecute any alcohol or drug abuse patient.[facility] CenterIn the event this information is protected by the Federal Confidentiality of Alcohol and Drug Abuse Patient Records regulations: The Federal rules restrict any use of the information to criminally investigate or prosecute any alcohol or drug abuse patient.[facility] CenterIn the event this information is protected by the Federal Confidentiality of Alcohol and Drug Abuse Patient Records regulations: The Federal rules restrict any use of the information to criminally investigate or prosecute any alcohol or drug abuse patient.[facility] CenterIn the event this information is protected by the Federal Confidentiality of Alcohol and Drug Abuse Patient Records regulations: The Federal rules restrict any use of the information to criminally investigate or prosecute any alcohol or drug abuse patient.[facility] CenterIn the event this information is protected by the Federal Confidentiality of Alcohol and Drug Abuse Patient Records regulations: The Federal rules restrict any use of the information to criminally investigate or prosecute any alcohol or drug abuse patient.[facility] CenterIn the event this information is protected by the Federal Confidentiality of Alcohol and Drug Abuse Patient Records regulations: The Federal rules restrict any use of the information to criminally investigate or prosecute any alcohol or drug abuse patient.[facility] CenterIn the event this information is protected by the Federal Confidentiality of Alcohol and Drug Abuse Patient Records regulations: The Federal rules restrict any use of the information to criminally investigate or prosecute any alcohol or drug abuse patient.[facility] CenterIn the event this information is protected by the Federal Confidentiality of Alcohol and Drug Abuse Patient Records regulations: The Federal rules restrict any use of the information to criminally investigate or prosecute any alcohol or drug abuse patient.[facility] CenterIn the event this information is protected by the Federal Confidentiality of Alcohol and Drug Abuse Patient Records regulations: The Federal rules restrict any use of the information to criminally investigate or prosecute any alcohol or drug abuse patient.[facility] CenterIn the event this information is protected by the Federal Confidentiality of Alcohol and Drug Abuse Patient Records regulations: The Federal rules restrict any use of the information to criminally investigate or prosecute any alcohol or drug abuse patient.[facility] CenterIn the event this information is protected by the Federal Confidentiality of Alcohol and Drug Abuse Patient Records regulations: The Federal rules restrict any use of the information to criminally investigate or prosecute any alcohol or drug abuse patient.[facility] CenterIn the event this information is protected by the Federal Confidentiality of Alcohol and Drug Abuse Patient Records regulations: The Federal rules restrict any use of the information to criminally investigate or prosecute any alcohol or drug abuse patient.[facility] CenterIn the event this information is protected by the Federal Confidentiality of Alcohol and Drug Abuse Patient Records regulations: The Federal rules restrict any use of the information to criminally investigate or prosecute any alcohol or drug abuse patient.[facility] CenterIn the event this information is protected by the Federal Confidentiality of Alcohol and Drug Abuse Patient Records regulations: The Federal rules restrict any use of the information to criminally investigate or prosecute any alcohol or drug abuse patient.[facility] CenterIn the event this information is protected by the Federal Confidentiality of Alcohol and Drug Abuse Patient Records regulations: The Federal rules restrict any use of the information to criminally investigate or prosecute any alcohol or drug abuse patient.[facility] CenterIn the event this information is protected by the Federal Confidentiality of Alcohol and Drug Abuse Patient Records regulations: The Federal rules restrict any use of the information to criminally investigate or prosecute any alcohol or drug abuse patient.[facility] CenterIn the event this information is protected by the Federal Confidentiality of Alcohol and Drug Abuse Patient Records regulations: The Federal rules restrict any use of the information to criminally investigate or prosecute any alcohol or drug abuse patient.[facility] CenterIn the event this information is protected by the Federal Confidentiality of Alcohol and Drug Abuse Patient Records regulations: The Federal rules restrict any use of the information to criminally investigate or prosecute any alcohol or drug abuse patient.[facility]In the event this information is protected by the Federal Confidentiality of Alcohol and Drug Abuse Patient Records regulations: The Federal rules restrict any use of the information to criminally investigate or prosecute any alcohol or drug abuse patient.[facility] CenterIn the event this information is protected by the Federal Confidentiality of Alcohol and Drug Abuse Patient Records regulations: The Federal rules restrict any use of the information to criminally investigate or prosecute any alcohol or drug abuse patient.[facility] CenterIn the event this information is protected by the Federal Confidentiality of Alcohol and Drug Abuse Patient Records regulations: The Federal rules restrict any use of the information to criminally investigate or prosecute any alcohol or drug abuse patient.[facility] CenterIn the event this information is protected by the Federal Confidentiality of Alcohol and Drug Abuse Patient Records regulations: The Federal rules restrict any use of the information to criminally investigate or prosecute any alcohol or drug abuse patient.[facility] CenterIn the event this information is protected by the Federal Confidentiality of Alcohol and Drug Abuse Patient Records regulations: The Federal rules restrict any use of the information to criminally investigate or prosecute any alcohol or drug abuse patient.[facility] CenterIn the event this information is protected by the Federal Confidentiality of Alcohol and Drug Abuse Patient Records regulations: The Federal rules restrict any use of the information to criminally investigate or prosecute any alcohol or drug abuse patient.[facility] CenterIn the event this information is protected by the Federal Confidentiality of Alcohol and Drug Abuse Patient Records regulations: The Federal rules restrict any use of the information to criminally investigate or prosecute any alcohol or drug abuse patient.[facility] CenterIn the event this information is protected by the Federal Confidentiality of Alcohol and Drug Abuse Patient Records regulations: The Federal rules restrict any use of the information to criminally investigate or prosecute any alcohol or drug abuse patient.[facility] CenterIn the event this information is protected by the Federal Confidentiality of Alcohol and Drug Abuse Patient Records regulations: The Federal rules restrict any use of the information to criminally investigate or prosecute any alcohol or drug abuse patient.[facility] CenterIn the event this information is protected by the Federal Confidentiality of Alcohol and Drug Abuse Patient Records regulations: The Federal rules restrict any use of the information to criminally investigate or prosecute any alcohol or drug abuse patient.[facility] CenterIn the event this information is protected by the Federal Confidentiality of Alcohol and Drug Abuse Patient Records regulations: The Federal rules restrict any use of the information to criminally investigate or prosecute any alcohol or drug abuse patient.[facility] CenterIn the event this information is protected by the Federal Confidentiality of Alcohol and Drug Abuse Patient Records regulations: The Federal rules restrict any use of the information to criminally investigate or prosecute any alcohol or drug abuse patient.[facility] CenterIn the event this information is protected by the Federal Confidentiality of Alcohol and Drug Abuse Patient Records regulations: The Federal rules restrict any use of the information to criminally investigate or prosecute any alcohol or drug abuse patient.[facility] CenterIn the event this information is protected by the Federal Confidentiality of Alcohol and Drug Abuse Patient Records regulations: The Federal rules restrict any use of the information to criminally investigate or prosecute any alcohol or drug abuse patient.[facility] CenterIn the event this information is protected by the Federal Confidentiality of Alcohol and Drug Abuse Patient Records regulations: The Federal rules restrict any use of the information to criminally investigate or prosecute any alcohol or drug abuse patient.[facility] CenterIn the event this information is protected by the Federal Confidentiality of Alcohol and Drug Abuse Patient Records regulations: The Federal rules restrict any use of the information to criminally investigate or prosecute any alcohol or drug abuse patient.[facility] CenterIn the event this information is protected by the Federal Confidentiality of Alcohol and Drug Abuse Patient Records regulations: The Federal rules restrict any use of the information to criminally investigate or prosecute any alcohol or drug abuse patient.[facility] CenterIn the event this information is protected by the Federal Confidentiality of Alcohol and Drug Abuse Patient Records regulations: The Federal rules restrict any use of the information to criminally investigate or prosecute any alcohol or drug abuse patient.[facility] CenterIn the event this information is protected by the Federal Confidentiality of Alcohol and Drug Abuse Patient Records regulations: The Federal rules restrict any use of the information to criminally investigate or prosecute any alcohol or drug abuse patient.[facility] CenterIn the event this information is protected by the Federal Confidentiality of Alcohol and Drug Abuse Patient Records regulations: The Federal rules restrict any use of the information to criminally investigate or prosecute any alcohol or drug abuse patient.[facility] CenterIn the event this information is protected by the Federal Confidentiality of Alcohol and Drug Abuse Patient Records regulations: The Federal rules restrict any use of the information to criminally investigate or prosecute any alcohol or drug abuse patient.[facility] CenterIn the event this information is protected by the Federal Confidentiality of Alcohol and Drug Abuse Patient Records regulations: The Federal rules restrict any use of the information to criminally investigate or prosecute any alcohol or drug abuse patient.[facility] CenterIn the event this information is protected by the Federal Confidentiality of Alcohol and Drug Abuse Patient Records regulations: The Federal rules restrict any use of the information to criminally investigate or prosecute any alcohol or drug abuse patient.[facility] CenterIn the event this information is protected by the Federal Confidentiality of Alcohol and Drug Abuse Patient Records regulations: The Federal rules restrict any use of the information to criminally investigate or prosecute any alcohol or drug abuse patient.[facility] CenterIn the event this information is protected by the Federal Confidentiality of Alcohol and Drug Abuse Patient Records regulations: The Federal rules restrict any use of the information to criminally investigate or prosecute any alcohol or drug abuse patient.[facility] CenterIn the event this information is protected by the Federal Confidentiality of Alcohol and Drug Abuse Patient Records regulations: The Federal rules restrict any use of the information to criminally investigate or prosecute any alcohol or drug abuse patient.[facility] CenterIn the event this information is protected by the Federal Confidentiality of Alcohol and Drug Abuse Patient Records regulations: The Federal rules restrict any use of the information to criminally investigate or prosecute any alcohol or drug abuse patient.[facility] CenterIn the event this information is protected by the Federal Confidentiality of Alcohol and Drug Abuse Patient Records regulations: The Federal rules restrict any use of the information to criminally investigate or prosecute any alcohol or drug abuse patient.[facility] CenterIn the event this information is protected by the Federal Confidentiality of Alcohol and Drug Abuse Patient Records regulations: The Federal rules restrict any use of the information to criminally investigate or prosecute any alcohol or drug abuse patient.[facility] CenterIn the event this information is protected by the Federal Confidentiality of Alcohol and Drug Abuse Patient Records regulations: The Federal rules restrict any use of the information to criminally investigate or prosecute any alcohol or drug abuse patient.[facility] CenterIn the event this information is protected by the Federal Confidentiality of Alcohol and Drug Abuse Patient Records regulations: The Federal rules restrict any use of the information to criminally investigate or prosecute any alcohol or drug abuse patient.[facility] CenterIn the event this information is protected by the Federal Confidentiality of Alcohol and Drug Abuse Patient Records regulations: The Federal rules restrict any use of the information to criminally investigate or prosecute any alcohol or drug abuse patient.[facility] CenterIn the event this information is protected by the Federal Confidentiality of Alcohol and Drug Abuse Patient Records regulations: The Federal rules restrict any use of the information to criminally investigate or prosecute any alcohol or drug abuse patient.[facility] CenterIn the event this information is protected by the Federal Confidentiality of Alcohol and Drug Abuse Patient Records regulations: The Federal rules restrict any use of the information to criminally investigate or prosecute any alcohol or drug abuse patient.[facility] CenterIn the event this information is protected by the Federal Confidentiality of Alcohol and Drug Abuse Patient Records regulations: The Federal rules restrict any use of the information to criminally investigate or prosecute any alcohol or drug abuse patient.[facility] CenterIn the event this information is protected by the Federal Confidentiality of Alcohol and Drug Abuse Patient Records regulations: The Federal rules restrict any use of the information to criminally investigate or prosecute any alcohol or drug abuse patient.[facility] CenterIn the event this information is protected by the Federal Confidentiality of Alcohol and Drug Abuse Patient Records regulations: The Federal rules restrict any use of the information to criminally investigate or prosecute any alcohol or drug abuse patient.[facility] CenterIn the event this information is protected by the Federal Confidentiality of Alcohol and Drug Abuse Patient Records regulations: The Federal rules restrict any use of the information to criminally investigate or prosecute any alcohol or drug abuse patient.[facility] CenterIn the event this information is protected by the Federal Confidentiality of Alcohol and Drug Abuse Patient Records regulations: The Federal rules restrict any use of the information to criminally investigate or prosecute any alcohol or drug abuse patient.[facility] CenterIn the event this information is protected by the Federal Confidentiality of Alcohol and Drug Abuse Patient Records regulations: The Federal rules restrict any use of the information to criminally investigate or prosecute any alcohol or drug abuse patient.[facility] CenterIn the event this information is protected by the Federal Confidentiality of Alcohol and Drug Abuse Patient Records regulations: The Federal rules restrict any use of the information to criminally investigate or prosecute any alcohol or drug abuse patient.[facility] CenterIn the event this information is protected by the Federal Confidentiality of Alcohol and Drug Abuse Patient Records regulations: The Federal rules restrict any use of the information to criminally investigate or prosecute any alcohol or drug abuse patient.[facility] CenterIn the event this information is protected by the Federal Confidentiality of Alcohol and Drug Abuse Patient Records regulations: The Federal rules restrict any use of the information to criminally investigate or prosecute any alcohol or drug abuse patient.[facility] CenterIn the event this information is protected by the Federal Confidentiality of Alcohol and Drug Abuse Patient Records regulations: The Federal rules restrict any use of the information to criminally investigate or prosecute any alcohol or drug abuse patient.[facility] CenterIn the event this information is protected by the Federal Confidentiality of Alcohol and Drug Abuse Patient Records regulations: The Federal rules restrict any use of the information to criminally investigate or prosecute any alcohol or drug abuse patient.[facility] CenterIn the event this information is protected by the Federal Confidentiality of Alcohol and Drug Abuse Patient Records regulations: The Federal rules restrict any use of the information to criminally investigate or prosecute any alcohol or drug abuse patient.[facility] CenterIn the event this information is protected by the Federal Confidentiality of Alcohol and Drug Abuse Patient Records regulations: The Federal rules restrict any use of the information to criminally investigate or prosecute any alcohol or drug abuse patient.[facility] CenterIn the event this information is protected by the Federal Confidentiality of Alcohol and Drug Abuse Patient Records regulations: The Federal rules restrict any use of the information to criminally investigate or prosecute any alcohol or drug abuse patient.[facility] CenterIn the event this information is protected by the Federal Confidentiality of Alcohol and Drug Abuse Patient Records regulations: The Federal rules restrict any use of the information to criminally investigate or prosecute any alcohol or drug abuse patient.[facility] CenterIn the event this information is protected by the Federal Confidentiality of Alcohol and Drug Abuse Patient Records regulations: The Federal rules restrict any use of the information to criminally investigate or prosecute any alcohol or drug abuse patient.[facility] CenterIn the event this information is protected by the Federal Confidentiality of Alcohol and Drug Abuse Patient Records regulations: The Federal rules restrict any use of the information to criminally investigate or prosecute any alcohol or drug abuse patient.[facility] CenterIn the event this information is protected by the Federal Confidentiality of Alcohol and Drug Abuse Patient Records regulations: The Federal rules restrict any use of the information to criminally investigate or prosecute any alcohol or drug abuse patient.[facility] CenterIn the event this information is protected by the Federal Confidentiality of Alcohol and Drug Abuse Patient Records regulations: The Federal rules restrict any use of the information to criminally investigate or prosecute any alcohol or drug abuse patient.[facility] CenterIn the event this information is protected by the Federal Confidentiality of Alcohol and Drug Abuse Patient Records regulations: The Federal rules restrict any use of the information to criminally investigate or prosecute any alcohol or drug abuse patient.[facility] CenterIn the event this information is protected by the Federal Confidentiality of Alcohol and Drug Abuse Patient Records regulations: The Federal rules restrict any use of the information to criminally investigate or prosecute any alcohol or drug abuse patient.[facility] CenterIn the event this information is protected by the Federal Confidentiality of Alcohol and Drug Abuse Patient Records regulations: The Federal rules restrict any use of the information to criminally investigate or prosecute any alcohol or drug abuse patient.[facility] CenterIn the event this information is protected by the Federal Confidentiality of Alcohol and Drug Abuse Patient Records regulations: The Federal rules restrict any use of the information to criminally investigate or prosecute any alcohol or drug abuse patient.[facility] CenterIn the event this information is protected by the Federal Confidentiality of Alcohol and Drug Abuse Patient Records regulations: The Federal rules restrict any use of the information to criminally investigate or prosecute any alcohol or drug abuse patient.[facility] CenterIn the event this information is protected by the Federal Confidentiality of Alcohol and Drug Abuse Patient Records regulations: The Federal rules restrict any use of the information to criminally investigate or prosecute any alcohol or drug abuse patient.[facility] CenterIn the event this information is protected by the Federal Confidentiality of Alcohol and Drug Abuse Patient Records regulations: The Federal rules restrict any use of the information to criminally investigate or prosecute any alcohol or drug abuse patient.[facility] CenterIn the event this information is protected by the Federal Confidentiality of Alcohol and Drug Abuse Patient Records regulations: The Federal rules restrict any use of the information to criminally investigate or prosecute any alcohol or drug abuse patient.[facility] CenterIn the event this information is protected by the Federal Confidentiality of Alcohol and Drug Abuse Patient Records regulations: The Federal rules restrict any use of the information to criminally investigate or prosecute any alcohol or drug abuse patient.[facility] CenterIn the event this information is protected by the Federal Confidentiality of Alcohol and Drug Abuse Patient Records regulations: The Federal rules restrict any use of the information to criminally investigate or prosecute any alcohol or drug abuse patient.[facility] CenterIn the event this information is protected by the Federal Confidentiality of Alcohol and Drug Abuse Patient Records regulations: The Federal rules restrict any use of the information to criminally investigate or prosecute any alcohol or drug abuse patient.[facility] CenterIn the event this information is protected by the Federal Confidentiality of Alcohol and Drug Abuse Patient Records regulations: The Federal rules restrict any use of the information to criminally investigate or prosecute any alcohol or drug abuse patient.[facility] CenterIn the event this information is protected by the Federal Confidentiality of Alcohol and Drug Abuse Patient Records regulations: The Federal rules restrict any use of the information to criminally investigate or prosecute any alcohol or drug abuse patient.[facility] CenterIn the event this information is protected by the Federal Confidentiality of Alcohol and Drug Abuse Patient Records regulations: The Federal rules restrict any use of the information to criminally investigate or prosecute any alcohol or drug abuse patient.[facility] CenterIn the event this information is protected by the Federal Confidentiality of Alcohol and Drug Abuse Patient Records regulations: The Federal rules restrict any use of the information to criminally investigate or prosecute any alcohol or drug abuse patient.[facility] CenterIn the event this information is protected by the Federal Confidentiality of Alcohol and Drug Abuse Patient Records regulations: The Federal rules restrict any use of the information to criminally investigate or prosecute any alcohol or drug abuse patient.[facility] CenterIn the event this information is protected by the Federal Confidentiality of Alcohol and Drug Abuse Patient Records regulations: The Federal rules restrict any use of the information to criminally investigate or prosecute any alcohol or drug abuse patient.[facility] CenterIn the event this information is protected by the Federal Confidentiality of Alcohol and Drug Abuse Patient Records regulations: The Federal rules restrict any use of the information to criminally investigate or prosecute any alcohol or drug abuse patient.[facility] CenterIn the event this information is protected by the Federal Confidentiality of Alcohol and Drug Abuse Patient Records regulations: The Federal rules restrict any use of the information to criminally investigate or prosecute any alcohol or drug abuse patient.[facility] CenterIn the event this information is protected by the Federal Confidentiality of Alcohol and Drug Abuse Patient Records regulations: The Federal rules restrict any use of the information to criminally investigate or prosecute any alcohol or drug abuse patient.[facility] CenterIn the event this information is protected by the Federal Confidentiality of Alcohol and Drug Abuse Patient Records regulations: The Federal rules restrict any use of the information to criminally investigate or prosecute any alcohol or drug abuse patient.[facility] CenterIn the event this information is protected by the Federal Confidentiality of Alcohol and Drug Abuse Patient Records regulations: The Federal rules restrict any use of the information to criminally investigate or prosecute any alcohol or drug abuse patient.[facility] CenterIn the event this information is protected by the Federal Confidentiality of Alcohol and Drug Abuse Patient Records regulations: The Federal rules restrict any use of the information to criminally investigate or prosecute any alcohol or drug abuse patient.[facility] CenterIn the event this information is protected by the Federal Confidentiality of Alcohol and Drug Abuse Patient Records regulations: The Federal rules restrict any use of the information to criminally investigate or prosecute any alcohol or drug abuse patient.[facility] CenterIn the event this information is protected by the Federal Confidentiality of Alcohol and Drug Abuse Patient Records regulations: The Federal rules restrict any use of the information to criminally investigate or prosecute any alcohol or drug abuse patient.[facility] CenterIn the event this information is protected by the Federal Confidentiality of Alcohol and Drug Abuse Patient Records regulations: The Federal rules restrict any use of the information to criminally investigate or prosecute any alcohol or drug abuse patient.[facility] CenterIn the event this information is protected by the Federal Confidentiality of Alcohol and Drug Abuse Patient Records regulations: The Federal rules restrict any use of the information to criminally investigate or prosecute any alcohol or drug abuse patient.[facility] CenterIn the event this information is protected by the Federal Confidentiality of Alcohol and Drug Abuse Patient Records regulations: The Federal rules restrict any use of the information to criminally investigate or prosecute any alcohol or drug abuse patient.[facility] CenterIn the event this information is protected by the Federal Confidentiality of Alcohol and Drug Abuse Patient Records regulations: The Federal rules restrict any use of the information to criminally investigate or prosecute any alcohol or drug abuse patient.[facility] CenterIn the event this information is protected by the Federal Confidentiality of Alcohol and Drug Abuse Patient Records regulations: The Federal rules restrict any use of the information to criminally investigate or prosecute any alcohol or drug abuse patient.[facility] CenterIn the event this information is protected by the Federal Confidentiality of Alcohol and Drug Abuse Patient Records regulations: The Federal rules restrict any use of the information to criminally investigate or prosecute any alcohol or drug abuse patient.[facility] CenterIn the event this information is protected by the Federal Confidentiality of Alcohol and Drug Abuse Patient Records regulations: The Federal rules restrict any use of the information to criminally investigate or prosecute any alcohol or drug abuse patient.[facility] CenterIn the event this information is protected by the Federal Confidentiality of Alcohol and Drug Abuse Patient Records regulations: The Federal rules restrict any use of the information to criminally investigate or prosecute any alcohol or drug abuse patient.[facility] CenterIn the event this information is protected by the Federal Confidentiality of Alcohol and Drug Abuse Patient Records regulations: The Federal rules restrict any use of the information to criminally investigate or prosecute any alcohol or drug abuse patient.[facility] CenterIn the event this information is protected by the Federal Confidentiality of Alcohol and Drug Abuse Patient Records regulations: The Federal rules restrict any use of the information to criminally investigate or prosecute any alcohol or drug abuse patient.[facility] CenterIn the event this information is protected by the Federal Confidentiality of Alcohol and Drug Abuse Patient Records regulations: The Federal rules restrict any use of the information to criminally investigate or prosecute any alcohol or drug abuse patient.[facility] CenterIn the event this information is protected by the Federal Confidentiality of Alcohol and Drug Abuse Patient Records regulations: The Federal rules restrict any use of the information to criminally investigate or prosecute any alcohol or drug abuse patient.[facility] CenterIn the event this information is protected by the Federal Confidentiality of Alcohol and Drug Abuse Patient Records regulations: The Federal rules restrict any use of the information to criminally investigate or prosecute any alcohol or drug abuse patient.[facility] CenterIn the event this information is protected by the Federal Confidentiality of Alcohol and Drug Abuse Patient Records regulations: The Federal rules restrict any use of the information to criminally investigate or prosecute any alcohol or drug abuse patient.[facility] CenterIn the event this information is protected by the Federal Confidentiality of Alcohol and Drug Abuse Patient Records regulations: The Federal rules restrict any use of the information to criminally investigate or prosecute any alcohol or drug abuse patient.[facility] CenterIn the event this information is protected by the Federal Confidentiality of Alcohol and Drug Abuse Patient Records regulations: The Federal rules restrict any use of the information to criminally investigate or prosecute any alcohol or drug abuse patient.[facility] CenterIn the event this information is protected by the Federal Confidentiality of Alcohol and Drug Abuse Patient Records regulations: The Federal rules restrict any use of the information to criminally investigate or prosecute any alcohol or drug abuse patient.[facility] Care Teams (unrecognized sec tion [...] 2025 End: January 17, 2025 Margie Arnett GEROPSYCHOLOGIST Attending Provider Active Start: January 17, 2025 [...] 2025 End: February 14, 2025 Margie Arnett GEROPSYCHOLOGIST Attending Provider Active Start: February 14, 2025 [...] 20, 2023 End: October 20, 2023 Mirela eKlsey MD Attending Provider Active Sta rt: October 20, 2023 End: October 20, 2023 Team Status: Inactive Member Role Status Mark Salomon MD Primary Care Provider Active Start: November 04, 2023 End: November 04, 2023 Mirela Kelsey MD Attending Provider Active Sta rt: November 04, 2023 End: November 04, 2023 Corporate Training Manager Relationship Specialty Start Date End Date Gay Enciso, PENSION FUND MANAGER.SPORTS MANAGEMENT INTERN [address] [place] [address] PCP - General Family Practice 10/24/21 Corporate Training Manager Relationship Specialty Start Date End Date Gay Enciso APRN.SPORTS MANAGEMENT INTERN [address] [place] [address] PCP - General Family Medicine 10/24/21 Manuel Ferris MD [address] [place] [address] Referring Family Medicine 02/12/22 Corporate Training Manager Relationship Specialty Start Date End Date Manuel Ferris MD [address] [facility] [place] [address] PCP - General Family Medicine 02/27/22 Manuel Ferris MD [address] [facility] [place] [address] Referring Family Medicine 02/12/22 Corporate Training Manager Relationship Specialty Start Date End Date Manuel Ferris MD [address] [facility] [place] [address] PCP - General Family Medicine 02/27/22 Manuel Ferris MD [address] [facility] [place] [address] Referring Family Medicine 02/12/22 Corporate Training Manager Relationship Specialty Start Date End Date Manuel Ferris MD [address] [facility] [place] [address] PCP - General Family Medicine 02/27/22 Manuel Ferris MD [address] [facility] [place] [address] Referring Family Medicine 02/12/22 Corporate Training Manager Relationship Specialty Start Date End Date Manuel Ferris MD [address] [facility] [place] [address] PCP - General Family Medicine 02/27/22 Manuel Ferris MD [address] [facility] [place] [address] Referring Family Medicine 02/12/22 Corporate Training Manager Relationship Specialty Start Date End Date Manuel Ferris MD [address] [facility] [place] [address] PCP - General Family Medicine 02/27/22 Manuel Ferris MD [address] [facility] [place] [address] Referring Family Medicine 02/12/22 Corporate Training Manager Relationship Specialty Start Date End Date Manuel Ferris MD [address] [facility] [place] [address] PCP - General Family Medicine 02/27/22 Manuel Ferris MD [address] [facility] [place] [address] Referring Family Medicine 02/12/22 Corporate Training Manager Relationship Specialty Start Date End Date Manuel Ferris MD [address] [facility] [place] [address] PCP - General Family Medicine 02/27/22 Manuel Ferris MD [address] [facility] [place] [address] Referring Family Medicine 02/12/22 Corporate Training Manager Relationship Specialty Start Date End Date Manuel Ferris MD [address] [facility] [place] [address] PCP - General Family Medicine 02/27/22 Manuel Ferris MD [address] [facility] [place] [address] Referring Family Medicine 02/12/22 Corporate Training Manager Relationship Specialty Start Date End Date Manuel Ferris MD [address] [facility] [place] [address] PCP - General Family Medicine 02/27/22 Manuel Ferris MD [address] [facility] [place] [address] Referring Family Medicine 02/12/22 Corporate Training Manager Relationship Specialty Start Date End Date Manuel Ferris MD [address] [facility] [place] [address] PCP - General Family Medicine 02/27/22 Manuel Ferris MD [address] [facility] [place] [address] Referring Family Medicine 02/12/22 Corporate Training Manager Relationship Specialty Start Date End Date Manuel Ferris MD [address] [facility] [place] [address] PCP - General Family Medicine 02/27/22 Manuel Ferris MD [address] [facility] [place] [address] Referring Family Medicine 02/12/22 Corporate Training Manager Relationship Specialty Start Date End Date Manuel Ferris MD [address] [facility] [place] [address] PCP - General Family Medicine 02/27/22 Manuel Ferris MD [address] [facility] [place] [address] Referring Family Medicine 02/12/22 Corporate Training Manager Relationship Specialty Start Date End Date Manuel Ferris MD [address] [facility] [place] [address] PCP - General Family Medicine 02/27/22 Manuel Ferris MD [address] [facility] [place] [address] Referring Family Medicine 02/12/22 Corporate Training Manager Relationship Specialty Start Date End Date Manuel Ferris MD [address] [facility] [place] [address] PCP - General Family Medicine 02/27/22 Manuel Ferris MD [address] [facility] [place] [address] Referring Family Medicine 02/12/22 Corporate Training Manager Relationship Specialty Start Date End Date Manuel Ferris MD [address] [facility] [place] [address] PCP - General Family Medicine 02/27/22 Manuel Ferris MD [address] [facility] [place] [address] Referring Family Medicine 02/12/22 Corporate Training Manager Relationship Specialty Start Date End Date Manuel Ferris MD [address] [facility] [place] [address] PCP - General Family Medicine 02/27/22 Manuel Ferris MD [address] [facility] [place] [address] Referring Family Medicine 02/12/22 Corporate Training Manager Relationship Specialty Start Date End Date Manuel Ferris MD [address] [facility] [place] [address] PCP - General Family Medicine 02/27/22 Manuel Ferris MD [address] [facility] [place] [address] Referring Family Medicine 02/12/22 Corporate Training Manager Relationship Specialty Start Date End Date Manuel Ferris MD [address] [facility] [place] [address] PCP - General Family Medicine 02/27/22 Manuel Ferris MD [address] [facility] [place] [address] Referring Family Medicine 02/12/22 Corporate Training Manager Relationship Specialty Start Date End Date Manuel Ferris MD [address] [facility] [place] [address] PCP - General Family Medicine 02/27/22 Manuel Ferris MD [address] [place] [address] Referring Family Medicine 02/12/22 Corporate Training Manager Relationship Specialty Start Date End Date Manuel Ferris MD [address] [place] [address] PCP - General Family Medicine 02/27/22 Manuel Ferris MD [address] [place] [id number] Referring Family Medicine 02/12/22 Corporate Training Manager Relationship Specialty Start Date End Date Manuel Ferris MD [address] [place] [address] PCP - General Family Medicine 02/27/22 Manuel Ferris MD [address] [place] [id number] Referring Family Medicine 02/12/22 Corporate Training Manager Relationship Specialty Start Date End Date Manuel Ferris MD PCP - General Family Medicine 02/27/22 Manuel Ferris MD Referring Family Medicine 02/12/22 Corporate Training Manager Relationship Specialty Start Date End Date Manuel Ferris MD PCP - General Family Medicine 02/27/22 Manuel Ferris MD Referring Family Medicine 02/12/22 Corporate Training Manager Relationship Specialty Start Date End Date Manuel Ferris MD PCP - General Family Medicine 02/27/22 Manuel Ferris MD Referring Family Medicine 02/12/22 Corporate Training Manager Relationship Specialty Start Date End Date Manuel Ferris MD PCP - General Family Medicine 02/27/22 Manuel Ferris MD Referring Family Medicine 02/12/22 Corporate Training Manager Relationship Specialty Start Date End Date Manuel Ferris MD PCP - General Family Medicine 02/27/22 Manuel Ferris MD Referring Family Medicine 02/12/22 Corporate Training Manager Relationship Specialty Start Date End Date Manuel Ferris MD PCP - General Family Medicine 02/27/22 Manuel Ferris MD Referring Family Medicine 02/12/22 Corporate Training Manager Relationship Specialty Start Date End Date Manuel Ferris MD PCP - General Family Medicine 02/27/22 Manuel Ferris MD Referring Family Medicine 02/12/22 Corporate Training Manager Relationship Specialty Start Date End Date Manuel Ferris MD PCP - General Family Medicine 02/27/22 Manuel Ferris MD Referring Family Medicine 02/12/22 Corporate Training Manager Relationship Specialty Start Date End Date Manuel Ferris MD PCP - General Family Medicine 02/27/22 Manuel Ferris MD Referring Family Medicine 02/12/22 Corporate Training Manager Relationship Specialty Start Date End Date Manuel Ferris MD PCP - General Family Medicine 02/27/22 Manuel Ferris MD Referring Family Medicine 02/12/22 Corporate Training Manager Relationship Specialty Start Date End Date Manuel Ferris MD PCP - General Family Medicine 02/27/22 Manuel Ferris MD Referring Family Medicine 02/12/22 Corporate Training Manager Relationship Specialty Start Date End Date Manuel Ferris MD PCP - General Family Medicine 02/27/22 Manuel Ferris MD Referring Family Medicine 02/12/22 Corporate Training Manager Relationship Specialty Start Date End Date Manuel Ferris MD PCP - General Family Medicine 02/27/22 Manuel Ferris MD Referring Family Medicine 02/12/22 Corporate Training Manager Relationship Specialty Start Date End Date Manuel Ferris MD PCP - General Family Medicine 02/27/22 Manuel Ferris MD Referring Family Medicine 02/12/22 Corporate Training Manager Relationship Specialty Start Date End Date Manuel Ferris MD PCP - General Family Medicine 02/27/22 Manuel Ferris MD Referring Family Medicine 02/12/22 Corporate Training Manager Relationship Specialty Start Date End Date Manuel Ferris MD PCP - General Family Medicine 02/27/22 Manuel Ferris MD Referring Family Medicine 02/12/22 Corporate Training Manager Relationship Specialty Start Date End Date Manuel Ferris MD PCP - General Family Medicine 02/27/22 Manuel Ferris MD Referring Family Medicine 02/12/22 Corporate Training Manager Relationship Specialty Start Date End Date Manuel Ferris MD PCP - General Family Medicine 02/27/22 Manuel Ferris MD Referring Family Medicine 02/12/22 Corporate Training Manager Relationship Specialty Start Date End Date Manuel Ferris MD PCP - General Family Medicine 02/27/22 Manuel Ferris MD Referring Family Medicine 02/12/22 Corporate Training Manager Relationship Specialty Start Date End Date Manuel Ferris MD PCP - General Family Medicine 02/27/22 Manuel Ferris MD Referring Family Medicine 02/12/22 Corporate Training Manager Relationship Specialty Start Date End Date Manuel Ferris MD PCP - General Family Medicine 02/27/22 Manuel Ferris MD Referring Family Medicine 02/12/22 Corporate Training Manager Relationship Specialty Start Date End Date Manuel Ferris MD PCP - General Family Medicine 02/27/22 Manuel Ferris MD Referring Family Medicine 02/12/22 Corporate Training Manager Relationship Specialty Start Date End Date Manuel Ferris MD PCP - General Family Medicine 02/27/22 Manuel Ferris MD Referring Family Medicine 02/12/22 Corporate Training Manager Relationship Specialty Start Date End Date Manuel Ferris MD PCP - General Family Medicine 02/27/22 Manuel Ferris MD Referring Family Medicine 02/12/22 Corporate Training Manager Relationship Specialty Start Date End Date Manuel Ferris MD PCP - General Family Medicine 02/27/22 Manuel Ferris MD Referring Family Medicine 02/12/22 Corporate Training Manager Relationship Specialty Start Date End Date Manuel Ferris MD PCP - General Family Medicine 02/27/22 Manuel Ferris MD Referring Family Medicine 02/12/22 Corporate Training Manager Relationship Specialty Start Date End Date Charles Nicole DO [address] [place] [id number] PCP - General 10/22/18 Michelle Jasmine, PENSION FUND MANAGER-SPORTS MANAGEMENT INTERN [address] [address] Nurse Practitioner Cardiology 06/08/23 Corporate Training Manager Relationship Specialty Start Date End Date Gay Enciso, PENSION FUND MANAGER-SPORTS MANAGEMENT INTERN [address] [place] [address] PCP - General 07/13/23 Michelle Jasmine, PENSION FUND MANAGER-SPORTS MANAGEMENT INTERN [address] [address] Nurse Practitioner Cardiology 06/08/23 Aurora Patel MD [address] [address] Consulting Physician Cardiology 06/23/23 Corporate Training Manager Relationship Specialty Start Date End Date Manuel Ferris MD PCP - General Family Medicine 02/27/22 Manuel Ferris MD Referring Family Medicine 02/12/22 Corporate Training Manager Relationship Specialty Start Date End Date Manuel Ferris MD PCP - General Family Medicine 02/27/22 Manuel Ferris MD Referring Family Medicine 02/12/22 Team Status: Active Member Role Status Dates Lui Salomon MD Primary Care Provider Active Start: July 28, 2023 Virgil Green MD Attending Provider Active S tart: July 28, 2023 Corporate Training Manager Relationship Specialty Start Date End Date Manuel Ferris MD PCP - General Family Medicine 02/27/22 Manuel Ferris MD Referring Family Medicine 02/12/22 Team Status: Inactive Member Role Status Dates Lui Salomon MD Primary Care Provider Active Start: December 16, 2023 End: December 16, 2023 Mirela Kelsey MD Attending Provider Active Sta rt: December 16, 2023 End: December 16, 2023 Corporate Training Manager Relationship Specialty Start Date End Date Manuel Ferris MD PCP - General Family Medicine 02/27/22 Manuel Ferris MD Referring Family Medicine 02/12/22 Corporate Training Manager Relationship Specialty Start Date End Date Manuel Ferris MD PCP - General Family Medicine 02/27/22 Manuel Ferris MD Referring Family Medicine 02/12/22 Corporate Training Manager Relationship Specialty Start Date End Date Manuel Ferris MD PCP - General Family Medicine 02/27/22 Manuel Ferris MD Referring Family Medicine 02/12/22 Corporate Training Manager Relationship Specialty Start Date End Date [...] February 28, 2024 End: February 28, 2024 Corporate Training Manager Relationship Specialty Start Date End Date Charles Nicole MD [address] [place] [address] PCP - General Family Medicine 02/09/24 Team Status: Inactive Member Role Status Dates WALESKA Galloway Primary Care Provider Active Start: March 16, 2024 End: March 16, 2024 Bandar Portillo APRN Attending Provider Active Start: March 16, 2024 End: March 16, 2024 Corporate Training Manager Relationship Specialty Start Date End Date Charles Nicole MD [address] [place] [address] PCP - General Family Medicine 02/09/24 Corporate Training Manager Relationship Specialty Start Date End Date Charles Nicole MD [address] [place] [facility] [address] PCP - General Family Medicine 02/09/24 Corporate Training Manager Relationship Specialty Start Date End Date Charles Nicole MD [address] [place] [facility] [address] PCP - General Family Medicine 02/09/24 Corporate Training Manager Relationship Specialty Start Date End Date Charles Nicole MD [address] [place] [facility] [address] PCP - General Family Medicine 02/09/24 Corporate Training Manager Relationship Specialty Start Date End Date Charles Nicole MD [address] [place] [facility] [address] PCP - General Family Medicine 02/09/24 Corporate Training Manager Relationship Specialty Start Date End Date Manuel Ferris MD PCP - General Family Medicine 02/27/22 Manuel Ferris MD Referring Family Medicine 02/12/22 Corporate Training Manager Relationship Specialty Start Date End Date Charles Nicole MD [address] [place] [facility] [address] PCP - General Family Medicine 02/09/24 Corporate Training Manager Relationship Specialty Start Date End Date Charles Nicole MD [address] [place] [facility] [address] PCP - General Family Medicine 02/09/24 Corporate Training Manager Relationship Specialty Start Date End Date Charles Nicole MD [address] [place] [address] PCP - General Family Medicine 02/09/24 Corporate Training Manager Relationship Specialty Start Date End Date Charles Nicole MD [address] [place] [address] PCP - General Family Medicine 02/09/24 Corporate Training Manager Relationship Specialty Start Date End Date Manuel Ferris MD PCP - General Family Medicine 02/27/22 Manuel Ferris MD Referring Family Medicine 02/12/22 Corporate Training Manager Relationship Specialty Start Date End Date Charles Nicole MD [address] [place] [address] PCP - General Family Medicine 02/09/24 Corporate Training Manager Relationship Specialty Start Date End Date Manuel Ferris MD PCP - General Family Medicine 02/27/22 Manuel Ferris MD Referring Family Medicine 02/12/22 Corporate Training Manager Relationship Specialty Start Date End Date Manuel Ferris MD PCP - General Family Medicine 02/27/22 Manuel Ferris MD Referring Family Medicine 02/12/22 Corporate Training Manager Relationship Specialty Start Date End Date Charles Nicole MD [address] [place] [address] PCP - General Family Medicine 02/09/24 Corporate Training Manager Relationship Specialty Start Date End Date Manuel Ferris MD PCP - General Family Medicine 02/27/22 Manuel Ferris MD Referring Family Medicine 02/12/22 Manuel Ferris MD [address] [place] [address] Referring Family Medicine 07/06/24 Team Status: Inactive Member Role Status Dates Gay Enciso GEROPSYCHOLOGIST-C Primary Care Provider Active Start: July 10, 2024 End: July 10, 2024 Adolfo Kang MD Attending Provider Active Sta rt: July 10, 2024 End: July 10, 2024 Corporate Training Manager Relationship Specialty Start Date End Date Manuel Ferris MD PCP - General Family Medicine 02/27/22 Manuel Ferris MD Referring Family Medicine 02/12/22 Manuel Ferris MD [address] [place] [id number] Referring Family Medicine 07/06/24 Corporate Training Manager Relationship Specialty Start Date End Date Manuel Ferris MD PCP - General Family Medicine 02/27/22 Manuel Ferris MD Referring Family Medicine 02/12/22 Manuel Ferris MD [address] [place] [address] Referring Family Medicine 07/06/24 Team Status: Inactive Member Role Status Dates Gay Enciso , CARISSA-C Primary Care Provider Active Start: July 19, 2024 End: July 19, 2024 Adolfo Kang MD Attending Provider Active Sta rt: July 19, 2024 End: July 19, 2024 Corporate Training Manager Relationship Specialty Start Date End Date Gay Enciso MD [address] [place] [address] Referring Physician Family Medicine 07/18/24 Corporate Training Manager Relationship Specialty Start Date End Date Manuel Ferris MD PCP - General Family Medicine 02/27/22 Manuel Ferris MD Referring Family Medicine 02/12/22 Manuel Ferris MD [address] [place] [address] Referring Family Medicine 07/06/24 Corporate Training Manager Relationship Specialty Start Date End Date Gay Enciso MD [address] [place] [address] Referring Physician Family Medicine 07/18/24 Corporate Training Manager Relationship Specialty Start Date End Date Gay Enciso APRN-SPORTS MANAGEMENT INTERN [address] [place] [address] PCP - General 07/13/23 Michelle Jasmine APRN-SPORTS MANAGEMENT INTERN Nurse Practitioner Cardiology 06/08/23 Aurora Patel MD [...] July 31, 2024 End: July 31, 2024 Corporate Training Manager Relationship Specialty Start Date End Date Manuel Ferris MD PCP - General Family Medicine 02/27/22 Manuel Ferris MD Referring Family Medicine 02/12/22 Manuel Ferris MD [address] [place] [address] Referring Family Medicine 07/06/24 Corporate Training Manager Relationship Specialty Start Date End Date Manuel Ferris MD PCP - General Family Medicine 02/27/22 Manuel Ferris MD Referring Family Medicine 02/12/22 Manuel Ferris MD [address] [place] [id number] Referring Family Medicine 07/06/24 Corporate Training Manager Relationship Specialty Start Date End Date Manuel Ferris MD PCP - General Family Medicine 02/27/22 Manuel Ferris MD Referring Family Medicine 02/12/22 Manuel Ferris MD [address] [place] [address] Referring Family Medicine 07/06/24 Team Status: Inactive Member Role Status Dates Gay Enciso , GEROPSYCHOLOGIST-C Primary Care Provider Active Start: August 22, 2024 End: August 22, 2024 Adolfo Kang MD Attending Provider Active Sta rt: August 22, 2024 End: August 22, 2024 Corporate Training Manager Relationship Specialty Start Date End Date Gay Enciso MD [address] [place] [address] Referring Physician Family Medicine 07/18/24 Corporate Training Manager Relationship Specialty Start Date End Date Manuel Ferris MD PCP - General Family Medicine 02/27/22 Manuel Ferris MD Referring Family Medicine 02/12/22 Manuel Ferris MD [address] [place] [address] Referring Family Medicine 07/06/24 Corporate Training Manager Relationship Specialty Start Date End Date Manuel Ferris MD PCP - General Family Medicine 02/27/22 Manuel Ferris MD Referring Family Medicine 02/12/22 Manuel Ferris MD [address] [place] [address] Referring Family Medicine 07/06/24 Corporate Training Manager Relationship Specialty Start Date End Date Gay Enciso MD [address] [place] [address] Referring Physician Family Medicine 07/18/24 Corporate Training Manager Relationship Specialty Start Date End Date Gay Enciso MD [address] [place] [address] Referring Physician Family Medicine 07/18/24 Corporate Training Manager Relationship Specialty Start Date End Date Manuel Ferris MD PCP - General Family Medicine 02/27/22 Manuel Ferris MD Referring Family Medicine 02/12/22 Manuel Ferris MD [address] [place] [id number] Referring Family Medicine 07/06/24 Corporate Training Manager Relationship Specialty Start Date End Date Manuel Ferris MD PCP - General Family Medicine 02/27/22 Manuel Ferris MD Referring Family Medicine 02/12/22 Manuel eFrris MD [address] [place] [id number] Referring Family Medicine 07/06/24 Corporate Training Manager Relationship Specialty Start Date End Date Manuel Ferris MD PCP - General Family Medicine 02/27/22 Manuel Ferris MD Referring Family Medicine 02/12/22 Manuel Ferris MD [address] [facility] [place] [address] Referring Family Medicine 07/06/24 Corporate Training Manager Relationship Specialty Start Date End Date Manuel Ferris MD PCP - General Family Medicine 02/27/22 Manuel Ferris MD Referring Family Medicine 02/12/22 Manuel Ferris MD [address] [place] [address] Referring Family Medicine 07/06/24 Corporate Training Manager Relationship Specialty Start Date End Date Manuel Ferris MD PCP - General Family Medicine 02/27/22 Manuel Ferris MD Referring Family Medicine 02/12/22 Manuel Ferris MD [address] [place] [address] Referring Family Medicine 07/06/24 Corporate Training Manager Relationship Specialty Start Date End Date Manuel Ferris MD PCP - General Family Medicine 02/27/22 Manuel Ferris MD Referring Family Medicine 02/12/22 Manuel Ferris MD [address] [facility] [place] [address] Referring Family Medicine 07/06/24 Corporate Training Manager Relationship Specialty Start Date End Date Manuel Ferris MD PCP - General Family Medicine 02/27/22 Manuel Ferris MD Referring Family Medicine 02/12/22 Manuel Ferris MD [address] [place] [address] Referring Family Medicine 07/06/24 Corporate Training Manager Relationship Specialty Start Date End Date Manuel Ferris MD PCP - General Family Medicine 02/27/22 Manuel Ferris MD Referring Family Medicine 02/12/22 Manuel Ferris MD [address] [place] [address] Referring Family Medicine 07/06/24 Corporate Training Manager Relationship Specialty Start Date End Date Manuel Ferris MD PCP - General Family Medicine 02/27/22 Manuel Ferris MD Referring Family Medicine 02/12/22 Manuel Ferris MD [address] [place] [address] Referring Family Medicine 07/06/24 Corporate Training Manager Relationship Specialty Start Date End Date Manuel Ferris MD PCP - General Family Medicine 02/27/22 Manuel Ferris MD Referring Family Medicine 02/12/22 Manuel Ferris MD [address] [place] [address] Referring Family Medicine 07/06/24 Corporate Training Manager Relationship Specialty Start Date End Date Manuel Ferris MD PCP - General Family Medicine 02/27/22 Manuel Ferris MD Referring Family Medicine 02/12/22 Manuel Ferris MD [address] [place] [address] Referring Family Medicine 07/06/24 Corporate Training Manager Relationship Specialty Start Date End Date Manuel Ferris MD PCP - General Family Medicine 02/27/22 Manuel Ferris MD Referring Family Medicine 02/12/22 Manuel Ferris MD [address] [place] [address] Referring Family Medicine 07/06/24 Corporate Training Manager Relationship Specialty Start Date End Date Manuel Ferris MD PCP - General Family Medicine 02/27/22 Manuel Ferris MD Referring Family Medicine 02/12/22 Manuel Ferris MD [address] [place] [address] Referring Family Medicine 07/06/24 Team Status: Inactive [...] November 13, 2024 End: November 13, 2024 Corporate Training Manager Relationship Specialty Start Date End Date Gay Enciso MD [address] [place] [address] Referring Physician Family Medicine 07/18/24 Corporate Training Manager Relationship Specialty Start Date End Date Manuel Ferris MD PCP - General Family Medicine 02/27/22 Manuel Ferris MD Referring Family Medicine 02/12/22 Manuel Ferris MD [address] [place] [address] Referring Family Medicine 07/06/24 Corporate Training Manager Relationship Specialty Start Date End Date Manuel Ferris MD PCP - General Family Medicine 02/27/22 Manuel Ferris MD Referring Family Medicine 02/12/22 Manuel Ferris MD [address] [place] [id number] Referring Family Medicine 07/06/24 Corporate Training Manager Relationship Specialty Start Date End Date Manuel Ferris MD PCP - General Family Medicine 02/27/22 Manuel Ferris MD Referring Family Medicine 02/12/22 Manuel Ferris MD [address] [place] [address] Referring Family Medicine 07/06/24 Team Status: Inactive Member Role Status Dates Gay Enciso NP-C Primary Care Provider Active Start: January 31, 2025 End: January 31, 2025 Adolfo Kang MD Attending Provider Active Sta rt: January 31, 2025 End: January 31, 2025 Corporate Training Manager Relationship Specialty Start Date End Date Gay Enciso MD [address] [place], [place] [phone] Referring Physician Family Medicine 07/18/24 Corporate Training Manager Relationship Specialty Start Date End Date Gay Enciso MD [address] [place] [address] Referring Physician Family Medicine 07/18/24 Inactive Administered [...] BE BASED ON THE PRIMARY CLINICAL RECORDS. [employer] provides no warranty or guarantee of the accuracy or completeness of information in this document.
[2025-02-27 14:56] LABS: Alanine Aminotransferase 49 U/L (14-59); Albumin Globulin Ratio 0.7; Albumin Level 3.0 g/dL (3.4-5.0); Alkaline Phosphatase 83 U/L (46-116); Anion Gap 14.4; Aspartate Amino Transferase 9 U/L (15-37); Blood Urea Nitrogen 13.0 mg/dL (7.0-18.0); Calcium 9.0 mg/dL (8.5-10.1); Carbon Dioxide 24.4 mmol/L (21.0-32.0); Chloride 103 mmol/L (98-107); Estimated GFR (African America >60 (>=60 mL/min/1.73m^2); Estimated GFR (Non-African Ame >60 (>=60 mL/min/1.73m^2); Globulin 4.4 g/dL; Glucose 189 mg/dL (74-106); Potassium 3.8 mmol/L (3.5-5.1); Sodium 138 mmol/L (136-145); Total Protein 7.4 g/dL (6.4-8.2)
[2025-02-27 15:16] LABS: Lactate/Lactic Acid 2.1 mmol/L (0.4-2.0)
== END 2025-02-27 14:13 | disposition home or self-care (01) ==
LOC: LAB 14:12
PROVIDERS: PCP Nurse Practitioner Family; Visit Provider Nurse Practitioner Family
DX: R79.89 Other specified abnormal findings of blood chemistry (principal)
CPT/HCPCS: 36415; 80053; 83605; 85025

== ENCOUNTER 2025-03-01 16:37 | Outpatient (RCR) | payer OTHER, SELFPAY ==
--- OUTSIDE RECORDS SUMMARY | 2025-03-01 16:45 | XMS_ITS | CCD ---
Author Organization [facility] Care Team Providers Care Spinner Continuous Name Role Phone MICHELNERY VICTOR MANUEL Lynne Referring Unavailable Unavailable Primary Care Provider UnavailJONAS Stuart Referring Unavailable Britt MANAGER OF HEALTH.TRUE, Gay Primary Care Provider Mirela Kelsey Unavailable Britt MANAGER OF HEALTH.PRINTING GRAY CLOTH TENDER, Gay Primary Care Provider Manuel Ferris MD [...] Unavailable HOY ., DR BURKETT Attending Unavailable HOGal ., DR BURKETT Admitting Unavailable BUFFY, DR [...] Provider Manuel Ferris MD Primary Care Provider [phone] MD Adolfo Kang Attending Provider CARISSA Enciso-C Gay Estrada Primary Care Provider Charles Nicole MD Primary Care Provider CALOS MENDOZA Attending Unavailable Unavailable Primary Care Provider UnavailManuel Calixto MD Unavailable Britt BATTERY CHARGER TESTER-C, Gay Estrada Primary Care Provider [phone] Jorge Luis LEE, Adolfo S Attending Provider ALHAJI HEAD Attending Unavailable MANUEL FERRIS Primary Care Unavailable ALHAJI HEAD Attending Unavailable VAIBHAV CARVALHO Referring Unavailable MANUEL FERRIS Primary Care Unavailable Gay Enciso MD Unavailable Mitali TABOR, Michelle London Unavailable Aurora Patel MD Unavailable Britt TABOR Gay S Primary Care Provider HOLM, ABREU M Attending Unavailable BRITT, GAY S Primary Care Unavailable HOLM, ABREU M Attending Unavailable HOLM, ABREU M Referring Unavailable BRITT, GAY S Primary Care Unavailable Britt BATTERY CHARGER TESTER-C, Gay Natalie Primary Care Provider [phone] Jorge Luis LEE, Adolfo Jane Attending Provider Britt BATTERY CHARGER TESTER-C, Gay Natalie Primary Care Provider [phone] Jorge Luis LEE, Adolfo Jane Attending Provider Margie Arnett NP Attending Provider Britt BATTERY CHARGER TESTER-C, Gay Natalie Primary Care Provider Jorge Luis LEE, Adolfo Jane Attending Provider Bandar Portillo APRN Attending Provider Britt BATTERY CHARGER TESTER-C, Gay Natalie Primary Care Provider Adolfo Kang MD Attending Provider [phone] Janes Barfield MD Attending Provider Adolfo Kang MD Other Provider BERNABE ENGLISH Attending Unavailable GORDO BARFIELD Attending Unavailable LUAN VALDIVIA Attending Unavailable MELISSA HUDDLESTON Attending Unavailable OLY PARNELL Referring Unavailable BERNABE ENGLISH Attending Unavailable OLY PARNELL Attending Unavailable MARKY MIKE Attending Unavailable GORDO BARFIELD Attending Unavailable BRITT, GAY Referring Unavailable OLY PARNELL Attending Unavailable ABHYANKAR, VERA Referring Unavailable HOY, [...] Primary Care Unavailable ANDRE CARVALHOE Attending Unavailable ABHYANKAR, VERA Referring Unavailable HOY, [...] Primary Care Unavailable DEVEN, VAIBHAV Referring Unavailable MANUEL FERRIS Primary Care Unavailable Britt BATTERY CHARGER TESTER-C, Gay Estrada Primary Care Provider [phone] Adolfo Kang MD Attending Provider Mathew Ji MD Attending Provider Adolfo Kang Admitting Unavailable Adolfo Kang Attending Unavailable Gay Enciso Primary Care Unavailable Mathew Ji Admitting Unavailable Mathew Ji Attending Unavailable Janes Barfield Admitting Unavailab le Janes Barfield Attending Unavailab Gay Terrell Primary Care Unavailable Adolfo Kang Admitting Unavailable Adolfo Kang Attending Unavailable Gay Enciso Primary Care Unavailable Allergies Allergy Classification Reported Allergen(s) Allergy Type Date of Onset Reaction(s) Facility Dihydrofolate Reductase Inhibitors (antibiotic) (3 sources) Trimethoprim Drug Allergy Other: See Comments [facility] Doxycycline (3 sources) Doxycycline Drug Allergy Other: See Comments [facility] Latex (3 sources) Latex Substance Allergy Rash [facility] Lincosamides (antibiotic) (3 sources) Clindamycin Drug Allergy Unknown [facility] Opioid Agonists (3 sources) Codeine Drug Allergy Other: See Comments [facility] Sulfamethoxazole / Trimethoprim (4 sources) Sulfamethoxazole / Trimethoprim Drug Allergy Swelling [facility] Sulfonamides (antibiotic) (3 sources) Sulfamethoxazole Drug Allergy Other: See Comments [facility] Work Phone: (20 sources) Codeine; Translations: [CODEINE] Drug Allergy Other: See Comments [facility] (20 sources) Latex; Translations: [LATEX] Drug Allergy Rash [facility] (20 sources) Sulfamethoxazole; Translations: [SULFAMETHOXAZOLE] Drug Allergy GI Upset, Other: See Comments [facility] (20 sources) Clindamycin; Translations: [CLINDAMYCIN] Drug Allergy Unknown [facility] (4 sources) Sulfamethoxazole / Trimethoprim Drug Allergy lymph swelling [employer] Other (20 sources) Doxycycline; Translations: [DOXYCYCLINE] Drug Allergy Other: See Comments, Other, Unknown, Other (See Comments) [facility] (20 sources) Sulfamethoxazole / Trimethoprim; Translations: [SULFAMETHOXAZOLE-T RIMETHOPRIM] Drug Allergy Swelling, Other, GI Disturbance, Other (See Comments) [facility] (20 sources) Trimethoprim; Translations: [TRIMETHOPRIM] Drug Allergy Other: See Comments [facility] (1 source) Latex Drug allergy (disorder) [facility] Repository (1 source) Sulfamethoxazole / Trimethoprim Drug Allergy [facility] Repository (20 sources) Sulfamethoxazole Allergy to substance 023 [facility] (20 sources) Latex Propensity to adverse reactions 015 [facility] (1 source) Omeprazole; Translations: [OMEPRAZOLE] Drug Allergy [facility] Repository (1 source) pantoprazole; Translations: [PANTOPRAZOLE] Drug Allergy [facility] Repository (1 source) Clindamycin Drug Allergy 025 [facility] Repository (1 source) Sulfamethoxazole Drug Allergy [facility] Repository (1 source) Trimethoprim Drug Allergy [facility] Repository Medications Current Medications Medication Drug Class(es) Dates Sig (Normalized) Sig (Original) acetaminophen 500 mg oral tablet (20 sources) Start: 01-31-2025 take 2 tablets by mouth every six hours as needed for pain Start: 01-24-2025 End: 01-24-2025 take 1 dose [...] (20 sources) Purine Antimetabolite Start: 05-24-19 End: 02-29-20 take 3 tablets by mouth once daily azaTHIOprine (Imuran) 50 MG tablet Take 150 mg by mouth Daily 05/24/2023 02/28/2025 Discontinued (Therapy completed) Start: 05-24-2023 End: 11-13-2024 take 1 tablet [...] organ involvement (HCC) , 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 HOLD IF ON ANTIBIOTICS OR ILL. 90 tablet 3 02/16/2023 Active Start: 08-19-2022 End: 11-24-2022 take 2 tablets by mouth once daily at mealtime azaTHIOprine (IMURAN) 50 mg tablet Indications: Other systemic lupus erythematosus with other organ involvement (HCC) , Encounter for alf 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 Take 2tab daily [...] AND BEFORE BEDTIME 270 tablet 1 03/02/2024 02/28/2025 Discontinued (Therapy completed) belimumab (20 sources) B Lymphocyte Stimulator-specific Inhibitor [...] once weekly cephalexin 500 mg oral capsule (7 sources) Cephalosporin Antibacterial Start: 02-27-2025 cephalexin (Keflex) 500 MG capsule 02/27/2025 Active Start: 06-15-2024 End: 06-22-2024 take 1 capsule by mouth in the [...] once daily, 30 day supply 60 mL 07/25/2024 Active Start: 06-23-2022 End: 06-06-2024 clindamycin (Clindagel) 1 % gel Indications: Hidradenitis suppurativa APPLY TO AFFECTED AREA DAILY 75 mL 11 10/06/2023 06/06/2024 Discontinued clobetasol propionate 0.5 mg /ml medicated shampoo (20 sources) Corticosteroid Start: 10-20-2023 Start: 10-20-2023 Clobetasol Act kaycee TOPICAL October [...] times a day as needed. 02/01/2024 Active jbzzdmqhqrMMAPK-tfpigw-gyger belia (BMX 1:1:1) 1:1:1 liqd (20 sources) Start: 07-12-2024 take 5 mL by mouth every six hours as needed tprzwvlzonSQRRS-nmwcum-rxclkpkrc (BMX 1:1:1) 1:1:1 liqd Take 5 mL by mouth every 6 hours as needed. 500 mL 1 07/12/2024 Active 0.5 ml dulaglutide 3 mg/ml auto-injector (20 sources) G L P - 1 R e c e p t o r A g o n i s t Start: 08-17-2024 End: 02-28-2025 Trulicity 1.5 MG/0.5ML solut ion auto-injector INJECT SUBCUTANEOUSLY ONCE A WEEK DIRECTED 08/17/2024 02/28/2025 Discontinued (Therapy completed) Start: 07-29-2024 inject 0.75 mg by galarza [...] sources) Serotonin and Norepinephrine Reuptake Inhibitor Start: 11-27-2024 take 1 capsule by mouth once daily Start: 02-01-2024 End: 03-16-2024 take 1 capsule [...] Comment on above: Take 1 capsule by [facility] once daily. ergocalciferol 1.25 mg oral capsule (20 sources) Provitamin D2 Compound Start: 11-13-2024 Start: 04-02-2024 End: 07-09-2024 ergocalciferol 50,000 unit c apsule (VITAMIN D2, DRISDOL) Indications: Vitamin D deficiency Take 1cap by mouth twice a week x 10weeks, then once a week with food. 24 capsule 1 04/02/2024 07/09/2024 Discontinued Start: 10-20-2023 End: 11-13-2024 Ergocalciferol (Vitamin D2) 1,250 mcg (50,000 unit) capsule Discontinued 06451 UNIT PO every week October 20, 2023 12:00am November 13, 2024 11:24am Start: 10-31-2022 End: 11-10-2024 take 1 capsule by mouth every week [...] 0 03/06/2021 Active take 1 capsule by [facility] every week ergocalciferol (Vitamin D2) 1.25 MG (26382 UT) capsule Take 50,000 Units by mouth [...] once daily. 11/17/2024 Active Start: 03-23-2024 End: 02-28-2025 take 1 tablet by mouth once daily norethindrone-ethinyl estradiol-iron (Lo Loestrin Fe) 1 MG-10 MCG / 10 MCG tablet Indications: Menorrhagia with regular cycle Take 1 tablet by mouth Daily Take 1 tablet by mouth daily 28 tablet 11 03/23/2024 02/28/2025 Discontinued (Therapy completed) Start: 03-23-2024 End: 02-22-2025 take 1 tablet [...] 60 mL 11 07/25/2024 Active Start: 10-20-2022 fluticasone propionate 0.05 mg/actuat metered dose nasal [...] take 1 tablet by mouth once daily Comment on above: Take 1 tablet by ce th once daily. TAKE 1 TABLET BY CE TH EVERY DAY hydroxychloroquine sulfate 200 mg oral tablet (20 sources) Antimalarial, Antirheumatic Agent Start: 01-24-20 25 hydrOXYchloroQUINE (PLAQUENIL) 200 mg tablet Indications: CHRISTIAN positive , Other systemic lupus erythematosus with other organ involvement (HCC) TAKE 1 TAB TWICE A DAY WITH FOOD *SUNSCREEN WHILE OUTDOORS/OPHTHAMOLOGY EVERY 6-12 MONTHS WHILE ON* 60 tablet 01/23/2025 Active Start: 10-20-2023 take 2 tablets by mo uth once daily Start: 10-20-2023 take 400 mg by mouth [...] sources) Nonsteroidal Anti-inflammatory Drug Start: 02-01-20 25 ibuprofen 200 MG tablet every 8 (eight) [...] 600 mg by mouth . Immunoglobulin G (16 sources) Human Immunoglobulin G Start: 12-12-2024 Start: [...] Start: 10-20-2023 take 4 tablets by mo [facility] once daily Start: 10-20-2023 take 200 mg by mouth [...] Active Start: 05-25-2022 take 1 tablet by [facility] twice daily metoprolol tartrate, short [...] Discontinued Start: 01-19-2022 take 1 capsule by [facility] once daily naltrexone capsule [...] 0.4 mg unde r the tongue. nystatin 734719 unt/ml oral suspension (20 sources) Polyene Antifungal [...] swallow Start: 07-25-2024 End: 08-08-2024 nystatin (Mycostatin) 879926 UNIT/ML suspension Indications: Rash and other nonspecific [...] take 2 tablets by mouth twice daily Start: 11-13-2024 take 2 tablets by mo uth once daily Pantoprazole 20 mg tablet,delayed release (DR/EC) Active 40 MG PO Daily November 13, 2024 11:24am Complies with drug therapy Start: 10-21-2024 take 1 tablet by ce at breakfast pantoprazole DR (PROTONIX) 40 mg [...] Comment on above: Take 1 tablet by [facility] daily before breakfast for 30 days. Take 1 tablet by ce daily before breakfast for 90 days. pilocarpine [...] Start: 10-20-2023 take 2 tablets by mo ut once daily Start: 05-12-2023 End: 10-07-2024 take 1 tablet [...] g 11 07/25/2024 Active Start: 08-16-2023 tacrolimus (VT OTOPIC) 0.1 % ointment Apply 1 Application topically as needed. 08/16/2023 Active thiamine 100 mg oral tablet (20 sources) Start: 12-12-2024 take 1 tablet by mouth once daily as needed Thiamine Hcl (Vitamin B1) 100 mg tablet Active MG PO Daily as needed December 12, 2024 12:00am Complies with drug therapy Start: 06-01-2023 End: 02-06-2025 take 1 tablet by mouth once daily topiramate 25 mg oral tablet (20 sources) [...] 11 07/15/2023 Active Vitamin D 50 MCG (1999) (4 [...] 11/16/24 at 1400, Total Volume - EXP: 11/16/2024 2200 RT Protect From Light Start: 10-19-2024 End: [...] at 1400, Total Volume - EXP: 09/18/2024 193 RT Protect From Light biotin 10 mg [...] ORAL, ONCE, 1 dose, O n Delmi 7/24/25 at 1430 Start: 11-29-2024 End: 11-29-2024 25 mg, INTRAVENOUS, ONCE, 1 dose, On Wed11/29/24 at 1000 Start: 11-16-2024 End: 11-16-2024 take 1 dose by mouth once 25 mg, ORAL, ONCE, 1 dose, O n Delmi 11/16/24 at 1400 Start: 10-31-2024 End: 10-31-2024 25 mg, INTRAVENOUS, ONCE, 1 dose, On Wed10/31/24 at 1000 Start: 10-19-2024 End: 10-19-2024 take [...] at bedtime. 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] Episodic Other aftercare (1 source) Polypharmacy ; Translations: [Other alf (current) drug therapy] Episodic Other aftercare (1 source) Long-term current use of drug therapy; Translations: [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] 11-11-2023 Episodic Other [...] Translations: [Diarrhea] 09-22-2023 Episodic Other gastrointestinal disorders (8 sources) Abdominal mass; Translations: [Intra-abdominal and pelvic swelling, mass and lump, unspecified site] 12-12-2024 Episodic Other gastrointestinal disorders (8 sources) Burning sensation; Translations: [Other specified symptoms and signs involving the digestive system and abdomen] 12-12-2024 Episodic Other gastrointestinal disorders (8 sources) Abdominal bloating; Translations: [Abdominal distension (gaseous)] 12-12-2024 Episodic Other gastrointestinal disorders (8 sources) Constipation; Translations: [Constipation, unspecified] 12-12-2024 Episodic Other inflammatory condition of skin (20 sources) Discoid lupus erythematosus; 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] Onset: 2 03-12-2022 Chronic Other inflammatory condition of skin (4 sources) Discoid lupus erythematosus; Translations: [DISCOID LUPUS ERYTHEMATOSUS] Onset: 2 Chronic Other inflammatory condition of skin (9 sources) Lupus erythematosus; 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] [...] 04-06-2024 Chronic Skin and subcutaneous tissue infections (5 sources) Pilonidal cyst; Translations: [Pilonidal cyst without abscess] Onset: 5 02-14-2025 Episodic Spondylosis; intervertebral disc disorders; other [...] [Supraventricular tachycardia, unspecified (CMS-HCC)] Onset: 4 Unclassified (3 sources) Call Dr. 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 Normal [facility] Comment on above: Performed By: #### C UU #### [address] CBC W Auto Differential pane l (Bld)on 02-21-2025 Basophils (Bld) [#/Vol] 0.09 10*3/uL Normal <0.11 [facility] Comment on above: Order Comment: Speci men Type: BLOOD SPECIMENOrdering Facility: [facility] Address: [address] [place] [address] Performed By: #### 5 7021-8 ####[facility] LABCLIA [id number] [place] [address] Basophils/100 WBC (Bld) 0.7 % Normal [facility] Comment on above: Order Comment: Speci men Type: BLOOD SPECIMENOrdering Facility: [facility] Address: [address] [place] [address] Performed By: #### 5 7021-8 ####[facility] LABCLIA [id number] [place] [address] Differential cell count method Nom (Bld) Auto Normal [facility] Comment on above: Order Comment: Speci men Type: BLOOD SPECIMENOrdering Facility: [facility] Address: [address] [place] [address] Performed By: #### 5 7021-8 ####[facility] LABCLIA [id number] [place] [address] Eosinophils (Bld) [#/Vol] 0.11 10*3/uL Normal <0.46 [facility] Comment on above: Order Comment: Speci men Type: BLOOD SPECIMENOrdering Facility: [facility] Address: [address] [place] [address] Performed By: #### 5 7021-8 ####[facility] LABCLIA [id number] [place] [address] Eosinophils/100 WBC (Bld) 0.8 % Normal [facility] Comment on above: Order Comment: Speci men Type: BLOOD SPECIMENOrdering Facility: [facility] Address: [address] [place] [address] Performed By: #### 5 7021-8 ####[facility] LABCLIA [id number] [place] [address] Erythrocyte distribution width (RBC) [Ratio] 14.3 % Normal 11.5-15.0 [facility] Comment on above: Order Comment: Speci men Type: BLOOD SPECIMENOrdering Facility: [facility] Address: [address] [place] [address] Performed By: #### 5 7021-8 ####[facility] LABCLIA [id number] [place] [address] Hematocrit (Bld) [Volume fraction] 46.0 % Normal 36.0-46.0 [facility] Comment on above: Order Comment: Speci men Type: BLOOD SPECIMENOrdering Facility: [facility] Address: [address] [place] [address] Performed By: #### 5 7021-8 ####[facility] LABCLIA [id number] [place] [address] Hemoglobin (Bld) [Mass/Vol] 15.1 g/dL Normal 11.5-15.5 [facility] Comment on above: Order Comment: Speci men Type: BLOOD SPECIMENOrdering Facility: [facility] Address: [address] [place] [address] Performed By: #### 5 7021-8 ####[facility] LABIA [id number] [place] [address] Immature granulocytes (Bld) [#/Vol] 0.21 10*3/uL High <0.10 [facility] Comment on above: Order Comment: Speci men Type: BLOOD SPECIMENOrdering Facility: [facility] Address: [address] [place] [address] Performed By: #### 5 7021-8 ####[facility] LABCLIA [id number] [place] [address] Immature granulocytes/100 WBC (Bld) 1.6 % Normal [facility] Comment on above: Order Comment: Speci men Type: BLOOD SPECIMENOrdering Facility: [facility] Address: [address] [place] [address] Performed By: #### 5 7021-8 ####[facility] LABCLIA [id number] [place] [address] Lymphocytes (Bld) [#/Vol] 1.89 10*3/uL Normal 1.00-4.00 [facility] Comment on above: Order Comment: Speci men Type: BLOOD SPECIMENOrdering Facility: [facility] Address: [address] [place] [address] Performed By: #### 5 7021-8 ####[facility] LABCLIA [id number] [place] [address] Lymphocytes/100 WBC (Bld) 14.4 % Normal [facility] Comment on above: Order Comment: Speci men Type: BLOOD SPECIMENOrdering Facility: [facility] Address: [address] [place] [address] Performed By: #### 5 7021-8 ####[facility] LABIA [id number] [place] [address] MCH (RBC) [Entitic mass] 31.7 pg Normal 26.0-34.0 [facility] Comment on above: Order Comment: Speci men Type: BLOOD SPECIMENOrdering Facility: [facility] Address: [address] [place] [address] Performed By: #### 5 7021-8 ####[facility] LABCLIA [id number] [place] [address] MCHC (RBC) [Mass/Vol] 32.8 g/dL Normal 30.5-36.0 [facility] Comment on above: Order Comment: Speci men Type: BLOOD SPECIMENOrdering Facility: [facility] Address: [address] [place] [address] Performed By: #### 5 7021-8 ####[facility] LABIA [id number] [place] [address] MCV (RBC) [Entitic vol] 96.4 fL Normal 80.0-100.0 [facility] Comment on above: Order Comment: Speci men Type: BLOOD SPECIMENOrdering Facility: [facility] Address: [address] [place] [address] Performed By: #### 5 7021-8 ####[facility] LABCLIA [id number] [place] [address] Monocytes (Bld) [#/Vol] 0.92 10*3/uL High <0.87 [facility] Comment on above: Order Comment: Speci men Type: BLOOD SPECIMENOrdering Facility: [facility] Address: [address] [place] [address] Performed By: #### 5 7021-8 ####[facility] LABCLIA [id number] [place] [address] Monocytes/100 WBC (Bld) 7.0 % Normal [facility] Comment on above: Order Comment: Speci men Type: BLOOD SPECIMENOrdering Facility: [facility] Address: [address] [place] [address] Performed By: #### 5 7021-8 ####[facility] LABCLIA [id number] [place] [address] Neutrophils (Bld) [#/Vol] 9.94 10*3/uL High 1.45-7.50 [facility] Comment on above: Order Comment: Speci men Type: BLOOD SPECIMENOrdering Facility: [facility] Address: [address] [place] [address] Performed By: #### 5 7021-8 ####[facility] LABCLIA [id number] [place] [address] Neutrophils/100 WBC (Bld) 75.5 % Normal [facility] Comment on above: Order Comment: Speci men Type: BLOOD SPECIMENOrdering Facility: [facility] Address: [address] [place] [address] Performed By: #### 5 7021-8 ####[facility] LABCLIA [id number] [place] [address] Nucleated RBC (Bld) [#/Vol] 10*3/uL Normal <0.01 [facility] Comment on above: Order Comment: Speci men Type: BLOOD SPECIMENOrdering Facility: [facility] Address: [address] [place] [address] Performed By: #### 5 7021-8 ####[facility] LABCLIA [id number] [place] [address] Nucleated RBC/100 WBC (Bld) [Ratio] 0.0 /100 WBC Normal [facility] Comment on above: Order Comment: Speci men Type: BLOOD SPECIMENOrdering Facility: [facility] Address: [address] [place] [address] Performed By: #### 5 7021-8 ####[facility] LABCLIA [id number] [place] [address] Platelet mean volume (Bld) [Entitic vol] 9.9 fL Normal 9.0-12.7 [facility] Comment on above: Order Comment: Speci men Type: BLOOD SPECIMENOrdering Facility: [facility] Address: [address] [place] [address] Performed By: #### 5 7021-8 ####[facility] LABCLIA [id number] [place] [address] Platelets (Bld) [#/Vol] 305 10*3/uL Normal 150-400 [facility] Comment on above: Order Comment: Speci men Type: BLOOD SPECIMENOrdering Facility: [facility] Address: [address] [place] [address] Performed By: #### 5 7021-8 ####[facility] LABIA [id number] [place] [address] RBC (Bld) [#/Vol] 4.77 10*6/uL Normal 3.90-5.20 [facility] Comment on above: Order Comment: Speci men Type: BLOOD SPECIMENOrdering Facility: [facility] Address: [address] [place] [address] Performed By: #### 5 7021-8 ####[facility] LABCLIA [id number] [place] [address] WBC (Bld) [#/Vol] 13.16 10*3/uL High 3.70-11.00 [facility] Comment on above: Order Comment: Speci men Type: BLOOD SPECIMENOrdering Facility: [facility] Address: [address] [place] [address] Performed By: #### 5 7021-8 ####[facility] LABCLIA [id number] [place] [address] CNOVSPon 02-21-2025 CNOVSP Normal [facility] CNPNon 02-21-2025 CNPN Normal [facility] Comprehensive metabolic 2000 panelon 02-21-2025 Albumin [Mass/Vol] 4.3 g/dL Normal 3.9-4.9 [facility] Comment on above: Order Comment: Speci men Type: BLOOD SPECIMENOrdering Facility: [facility] Address: [address] [place] [address] Performed By: #### 2 4323-8 ####[facility] LABIA [id number] [place] [address] ALP [Catalytic activity/Vol] 83 U/L Normal 34-123 [facility] Comment on above: Order Comment: Speci men Type: BLOOD SPECIMENOrdering Facility: [facility] Address: [address] [place] [address] Performed By: #### 2 4323-8 ####[facility] LABCLIA [id number] [place] [address] ALT [Catalytic activity/Vol] 49 U/L High 7-38 [facility] Comment on above: Order Comment: Speci men Type: BLOOD SPECIMENOrdering Facility: [facility] Address: [address] [place] [address] Performed By: #### 2 4323-8 ####[facility] LABCLIA [id number] [place] [address] Anion gap [Moles/Vol] 17 mmol/L High 8-15 [facility] Comment on above: Order Comment: Speci men Type: BLOOD SPECIMENOrdering Facility: [facility] Address: [address] [place] [address] Performed By: #### 2 4323-8 ####[facility] LABCLIA [id number] [place] [address] AST [Catalytic activity/Vol] 20 U/L Normal 13-35 [facility] Comment on above: Order Comment: Speci men Type: BLOOD SPECIMENOrdering Facility: [facility] Address: [address] [place] [address] Performed By: #### 2 4323-8 ####[facility] LABCLIA [id number] [place] [address] Bilirubin [Mass/Vol] 0.3 mg/dL Normal 0.2-1.3 [facility] Comment on above: Order Comment: Speci men Type: BLOOD SPECIMENOrdering Facility: [facility] Address: [address] [place] [address] Performed By: #### 2 4323-8 ####[facility] LABCLIA [id number] [place] [address] Calcium [Mass/Vol] 10.2 mg/dL Normal 8.5-10.2 [facility] Comment on above: Order Comment: Speci men Type: BLOOD SPECIMENOrdering Facility: [facility] Address: [address] [place], [place] [address] Performed By: #### 2 4323-8 ####[facility] LABCLIA [id number] [place] [address] Chloride [Moles/Vol] 101 mmol/L Normal 98-107 [facility] Comment on above: Order Comment: Speci men Type: BLOOD SPECIMENOrdering Facility: [facility] Address: [address] [place], [place] [address] Performed By: #### 2 4323-8 ####[facility] LABCLIA [id number] [place] [address] CO2 [Moles/Vol] 20 mmol/L Low 22-30 [facility] Comment on above: Order Comment: Speci men Type: BLOOD SPECIMENOrdering Facility: [facility] Address: [address] [place] [address] Performed By: #### 2 4323-8 ####[facility] LABCLIA [id number] [place] [address] Creatinine [Mass/Vol] 0.49 mg/dL Low 0.58-0.96 [facility] Comment on above: Order Comment: Speci men Type: BLOOD SPECIMENOrdering Facility: [facility] Address: [address] [place] [address] Performed By: #### 2 4323-8 ####[facility] LABCLIA [id number] [place] [address] eGFRcr SerPlBld CKD-EPI 2020 119 mL/min/1.73m??? Normal >=60 [facility] Comment on above: Order Comment: Speci men Type: BLOOD SPECIMENOrdering Facility: [facility] Address: [address] [place] [address] Result Comment: Erin mated Glomerular Filtration Rate [...] actual GFR. Performed By: #### 2 4323-8 ####[facility] LABCLIA [id number] [place] [address] Glucose [Mass/Vol] 248 mg/dL High 74-99 [facility] Comment on above: Order Comment: Speci men Type: BLOOD SPECIMENOrdering Facility: [facility] Address: [address] [place] [address] Result Comment: The [place] Diabetes Association (ADA) provides guidance for cutoff [...] Standards of Medical Care in Diabetes 2016, [place] Diabetes Association. Diabetes Care. 2016.39(Suppl 1). Performed By: #### 2 4323-8 ####[facility] LABCLIA [id number] [place] [address] Potassium [Moles/Vol] 4.1 mmol/L Normal 3.7-5.1 [facility] Comment on above: Order Comment: Speci men Type: BLOOD SPECIMENOrdering Facility: [facility] Address: [address] [place] [address] Performed By: #### 2 4323-8 ####[facility] LABCLIA [id number] [place] [address] Protein [Mass/Vol] 7.6 g/dL Normal 6.3-8.0 [facility] Comment on above: Order Comment: Speci men Type: BLOOD SPECIMENOrdering Facility: [facility] Address: [address] [place] [address] Performed By: #### 2 4323-8 ####[facility] LABCLIA [id number] [place] [address] Sodium [Moles/Vol] 138 mmol/L Normal 136-144 [facility] Comment on above: Order Comment: Speci men Type: BLOOD SPECIMENOrdering Facility: [facility] Address: [address] [id number] Performed By: #### 2 4323-8 ####[facility] LABCLIA [id number] [place] [address] Urea nitrogen [Mass/Vol] 16 mg/dL Normal 7-21 [facility] Comment on above: Order Comment: Speci men Type: BLOOD SPECIMENOrdering Facility: [facility] Address: [address] [place] [address] Performed By: #### 2 4323-8 ####[facility] LABCLIA [id number] [place] [address] Ferritin SerPl-mCncon 2024 Ferritin [Mass/Vol] 83.6 ng/mL Normal 14.7-205.1 [facility] Comment on above: Order Comment: Speci men Type: BLOOD SPECIMENOrdering Facility: [facility] Address: [address] [place] [address] Performed By: #### 5 0190-8, 2283-8, 2132-01, 4 ####[facility] LABCLIA [id number] [place] [address] [place] Folate SerPl-mCncon 02-22-20 25 Folate [Mass/Vol] ng/mL Normal >4.7 [facility] Comment on above: Order Comment: Speci men Type: BLOOD SPECIMENOrdering Facility: [facility] Address: [address] [place] [address] Result Comment: A re sult of > 20 ng/mL is not necessarily indicative of a pathologic or treatable condition: it reflects a limitation of the test methodology.Assay reference range: 4.8 to 24.2 ng/mL. Suitable for detection of folate deficiency.Reference:Folate III (Folate III) [package insert V 1.0 [place]]. [facility], [place], [place]: March 2015. Performed By: #### 5 0190-8, 2284-8, 9, 2275-4 ####[facility] LABCLIA [id number] [place] [address] [place] IMMUNOGLOBULINS,IGG,IGA,IGMo n 02-21-2025 IgA [Mass/Vol] 184 mg/dL Normal 70-400 [facility] Comment on above: Order Comment: Speci men Type: BLOOD SPECIMENOrdering Facility: [facility] Address: [address] [place] [address] Performed By: #### S ERIMM ####[facility] LABCLIA [id number] [place] [address] [place] IgG [Mass/Vol] 610 mg/dL Low 700-1600 [facility] Comment on above: Order Comment: Speci men Type: BLOOD SPECIMENOrdering Facility: [facility] Address: [address] [place] [address] Performed By: #### S ERIMM ####[facility] LABCLIA [id number] [place] [address] [place] IgM [Mass/Vol] 454 mg/dL High 40-230 [facility] Comment on above: Order Comment: Speci men Type: BLOOD SPECIMENOrdering Facility: [facility] Address: [address] [place] [address] Performed By: #### S ERIMM ####[facility] LABCLIA [id number] [place] [address] [place] Iron and Iron binding capaci ty panelon 02-21-2025 Iron [Mass/Vol] 156 ug/dL Normal 41-186 [facility] Comment on above: Order Comment: Speci men Type: BLOOD SPECIMENOrdering Facility: [facility] Address: [address] [place] [address] Performed By: #### 5 0190-8, 2284-8, 2132-9, 2276-4 ####[facility] LABCLIA [id number] [place] [address] [place] Iron binding capacity [Mass/Vol] 443 ug/dL High 232-386 [facility] Comment on above: Order Comment: Speci men Type: BLOOD SPECIMENOrdering Facility: [facility] Address: [address] [place] [address] Performed By: #### 5 0190-8, 4-8, 2132-01, 4 ####[facility] LABCLIA [id number] [place] [id number] [place] Iron/TIBC [Molar ratio] 35.2 % Normal 15.0-57.0 [facility] Comment on above: Order Comment: Speci men Type: BLOOD SPECIMENOrdering Facility: [facility] Address: [address] [place] [address] Performed By: #### 5 0190-8, 2283-8, 2132-01, 4 ####[facility] [id number] [address] [place] Vit B12 [facility] 02-21-2 025 Cobalamin (Vitamin B12) [Mass/Vol] 694 pg/mL Normal 232-1245 [facility] Comment on above: Order Comment: Speci men Type: BLOOD SPECIMENOrdering Facility: [facility] Address: [address] [place] [address] Performed By: #### 5 0190-8, 2283-8, 2132-01, 4 ####[facility] [id number] [place] [id number] [place] CNPNon 02-12-2025 CNPN Normal [facility] HCG ( test) IA.rapi d Ql (U)Ordered By: Adolfo Kang on 01-31-2025 HCG ( test) Ql (U) Negative [facility] HCG,Urineon 01-31-2025 Beta HCG ( test) Ql (U) Negative Normal [facility] Comment on above: Result Comment: PERF ORMED BY: [facility] [address] [place] [address] PATHOLOGIST BIOLOGICAL INSPECTOR TIM FOOTE M.D. Performed By: #### U HCG #### [facility] [address] [id number] [facility] BI US BREAST LIMITED [...] BY: Yassine Owens M.D. Normal Not Available Audra 01-18-2025 [facility] 25([place])D3 [facility]patt 2024 25-hydroxyvitamin D3 [Mass/Vol] 32.2 ng/mL Normal 31.0-80.0 [facility] Comment on above: Order Comment: Speci men Type: BLOOD SPECIMENOrdering Facility: [facility] Address: [address] [place] [address] Performed By: #### 1 989-3 ####[facility] LABCLIA [id number] [address] [facility] BLOOD TB SCREENon 01-11-2025 M. tuberculosis tuberculin stim IFN-g Ql (Bld) Negative Normal [facility] Comment on above: Order Comment: Speci men Type: BLOOD SPECIMENOrdering Facility: [facility] Address: [address] [place] [address] Performed By: #### I NFTBP ####[facility] LABCLIA [id number] [place] [address] [place] MITOGEN MINUS NIL >9.97 Normal >=0.50 [facility] Comment on above: Order Comment: Speci men Type: BLOOD SPECIMENOrdering Facility: [facility] Address: [address] [place] [address] Performed By: #### I NFTBP ####[facility] LABIA [id number] [address] [place] TB GAMMA INTERPRETATION Normal [facility] Comment on above: Order Comment: Speci men Type: BLOOD SPECIMENOrdering Facility: [facility] Address: [address] [place] [address] Performed By: #### I NFTBP ####[facility] LABCLIA [id number] [address] [place] TB NIL 0.03 IU/mL Normal <=8.00 [facility] Comment on above: Order Comment: Speci men Type: BLOOD SPECIMENOrdering Facility: [facility] Address: [address] [place] [address] Performed By: #### I NFTBP ####[facility] LABIA [id number] [place] [address] [place] TB1 AG MINUS NIL 0.01 IU/mL Normal <0.35 [facility] Comment on above: Order Comment: Speci men Type: BLOOD SPECIMENOrdering Facility: [facility] Address: [address] [place] [address] Performed By: #### I NFTBP ####[facility] LABCLIA [id number] [address] [place] TB2 AG MINUS NIL 0.01 IU/mL Normal <0.35 [facility] Comment on above: Order Comment: Speci men Type: BLOOD SPECIMENOrdering Facility: [facility] Address: [address] [place] [address] Performed By: #### I NFTBP ####[facility] LABCLIA [id number] [address] [place] CBC panel Auto (Bld)on 01-11 Erythrocyte distribution width (RBC) [Ratio] 14.5 % 11.5 - 15.0 % [facility] Hematocrit (Bld) [Volume fraction] 41.5 % 36.0 - 46.0 % [facility] Hemoglobin (Bld) [Mass/Vol] 13.8 g/dL 11.5 - 15.5 g/dL [facility] Interpretation and review of laboratory results Abnormal [facility] MCH (RBC) [Entitic mass] 32.2 pg 26.0 - 34.0 pg [facility] MCHC (RBC) [Mass/Vol] 33.3 g/dL 30.5 - 36.0 g/dL [facility] MCV (RBC) [Entitic vol] 96.7 fL 80.0 - 100.0 fL [facility] Nucleated RBC (Bld) [#/Vol] NINF [facility] Platelet mean volume (Bld) [Entitic vol] 10.6 fL 9.0 - 12.7 fL [facility] Platelets (Bld) [#/Vol] 265 10*3/uL [facility] RBC (Bld) [#/Vol] 4.29 10*6/uL 3.90 - 5.2 0 m/uL [facility] WBC (Bld) [#/Vol] 12.61 10*3/uL [facility] Erythrocyte distribution width (RBC) [Ratio] 14.5 % Normal 11.5-15.0 [facility] Comment on above: Order Comment: Speci men Type: BLOOD SPECIMENOrdering Facility: [facility] Address: [address] [place] [address] Performed By: #### 5 8410-2 ####[facility] LABCLIA [id number] [place] [address] Hematocrit (Bld) [Volume fraction] 41.5 % Normal 36.0-46.0 [facility] Comment on above: Order Comment: Speci men Type: BLOOD SPECIMENOrdering Facility: [facility] Address: [address] [place] [address] Performed By: #### 5 8410-2 ####[facility] LABCLIA [id number] [place] [address] Hemoglobin (Bld) [Mass/Vol] 13.8 g/dL Normal 11.5-15.5 [facility] Comment on above: Order Comment: Speci men Type: BLOOD SPECIMENOrdering Facility: [facility] Address: [address] [place] [address] Performed By: #### 5 8410-2 ####[facility] LABCLIA [id number] [place] [address] MCH (RBC) [Entitic mass] 32.2 pg Normal 26.0-34.0 [facility] Comment on above: Order Comment: Speci men Type: BLOOD SPECIMENOrdering Facility: [facility] Address: [address] [place] [address] Performed By: #### 5 8410-2 ####[facility] LABCLIA [id number] [place] [address] MCHC (RBC) [Mass/Vol] 33.3 g/dL Normal 30.5-36.0 [facility] Comment on above: Order Comment: Speci men Type: BLOOD SPECIMENOrdering Facility: [facility] Address: [address] [place] [address] Performed By: #### 5 8410-2 ####[facility] LABCLIA [id number] [place] [address] MCV (RBC) [Entitic vol] 96.7 fL Normal 80.0-100.0 [facility] Comment on above: Order Comment: Speci men Type: BLOOD SPECIMENOrdering Facility: [facility] Address: [address] [place] [address] Performed By: #### 5 8410-2 ####[facility] LABCLIA [id number] [place] [address] Nucleated RBC (Bld) [#/Vol] 10*3/uL Normal <0.01 [facility] Comment on above: Order Comment: Speci men Type: BLOOD SPECIMENOrdering Facility: [facility] Address: [address] [place] [address] Performed By: #### 5 8410-2 ####[facility] LABCLIA [id number] [place] [address] Platelet mean volume (Bld) [Entitic vol] 10.6 fL Normal 9.0-12.7 [facility] Comment on above: Order Comment: Speci men Type: BLOOD SPECIMENOrdering Facility: [facility] Address: [address] [place] [address] Performed By: #### 5 8410-2 ####[facility] LABCLIA [id number] [place] [address] Platelets (Bld) [#/Vol] 265 10*3/uL Normal 150-400 [facility] Comment on above: Order Comment: Speci men Type: BLOOD SPECIMENOrdering Facility: [facility] Address: [address] [place] [address] Performed By: #### 5 8410-2 ####[facility] LABCLIA [id number] [place] [address] RBC (Bld) [#/Vol] 4.29 10*6/uL Normal 3.90-5.20 [facility] Comment on above: Order Comment: Speci men Type: BLOOD SPECIMENOrdering Facility: [facility] Address: [address] [place], [place] [address] Performed By: #### 5 8410-2 ####[facility] LABCLIA [id number] [place] [address] WBC (Bld) [#/Vol] 12.61 10*3/uL High 3.70-11.00 [facility] Comment on above: Order Comment: Speci men Type: BLOOD SPECIMENOrdering Facility: [facility] Address: [address] [place] [address] Performed By: #### 5 8410-2 ####[facility] LABCLIA [id number] [place] [address] CRP SerPl-mCncon 01-11-2025 CRP [Mass/Vol] mg/L Normal <0.9 [facility] Comment on above: Order Comment: Speci men Type: BLOOD SPECIMENOrdering Facility: [facility] Address: [address] [place], [place] [address] Performed By: #### 1 988-5, 2132-9 ####[facility] LABCLIA [id number] [place] [id number] [facility] Comprehensive metabolic 2000 panelOrdered By: Josse Merlos on 01-11-2025 Albumin [Mass/Vol] 3.9 g/dL 3.9 - 4.9 g/dL [facility] ALP [Catalytic activity/Vol] 83 U/L 34 - 123 U/L [facility] ALT [Catalytic activity/Vol] 42 U/L High 7 - 38 U/L [facility] Anion gap [Moles/Vol] 10 mmol/L 8 - 15 mmol/L [facility] AST [Catalytic activity/Vol] 22 U/L 13 - 35 U/L [facility] Bilirubin [Mass/Vol] 0.2 mg/dL 0.2 - 1 .3 mg/dL [facility] Calcium [Mass/Vol] 9.7 mg/dL 8.5 - 10. 2 mg/dL [facility] Chloride [Moles/Vol] 103 mmol/L 98 - 10 7 mmol/L [facility] CO2 [Moles/Vol] 23 mmol/L 22 - 30 mmol/L [facility] Creatinine [Mass/Vol] 0.50 mg/dL Low 0.58 - 0.96 mg/dL [facility] GFR/1.73 sq M.predicted among non-blacks MDRD (S/P/Bld) [Vol rate/Area] 119 mL/min/{1.73_m2} - PINF [facility] Comment on above: Estimated [...] 221 mg/dL High 74 - 99 mg/dL [facility] Comment on above: The [place] Diabete s Association (ADA) provides guidance for [...] Standards of Medical Care in Diabetes 2016, [place] Diabetes Association. Diabetes Care. 2016.39(Suppl 1). Interpretation and review of laboratory results Abnormal [facility] Potassium [Moles/Vol] 4.1 mmol/L 3.7 - 5.1 mmol/L [facility] Protein [Mass/Vol] 6.8 g/dL 6.3 - 8.0 g/dL [facility] Sodium [Moles/Vol] 136 mmol/L 136 - 144 mmol/L [facility] Urea nitrogen [Mass/Vol] 15 mg/dL 7 - 21 mg/dL [facility] Comprehensive metabolic 2000 panelon 01-11-2025 Albumin [Mass/Vol] 3.9 g/dL Normal 3.9-4.9 [facility] Comment on above: Order Comment: Speci men Type: BLOOD SPECIMENOrdering Facility: [facility] Address: [address] [place] [address] Performed By: #### 2 4323-8 ####[facility] LABCLIA [id number] [place] [address] ALP [Catalytic activity/Vol] 83 U/L Normal 34-123 [facility] Comment on above: Order Comment: Speci men Type: BLOOD SPECIMENOrdering Facility: [facility] Address: [address] [place] [address] Performed By: #### 2 4323-8 ####[facility] LABCLIA [id number] [place] [address] ALT [Catalytic activity/Vol] 42 U/L High 7-38 [facility] Comment on above: Order Comment: Speci men Type: BLOOD SPECIMENOrdering Facility: [facility] Address: [address] [place] [address] Performed By: #### 2 4323-8 ####[facility] LABCLIA [id number] [place] [address] Anion gap [Moles/Vol] 10 mmol/L Normal 8-15 [facility] Comment on above: Order Comment: Speci men Type: BLOOD SPECIMENOrdering Facility: [facility] Address: [address] [place] [address] Performed By: #### 2 4323-8 ####[facility] LABCLIA [id number] [place] [address] AST [Catalytic activity/Vol] 22 U/L Normal 13-35 [facility] Comment on above: Order Comment: Speci men Type: BLOOD SPECIMENOrdering Facility: [facility] Address: [address] [place] [address] Performed By: #### 2 4323-8 ####[facility] LABCLIA [id number] [place] [address] Bilirubin [Mass/Vol] 0.2 mg/dL Normal 0.2-1.3 [facility] Comment on above: Order Comment: Speci men Type: BLOOD SPECIMENOrdering Facility: [facility] Address: [address] [place] [address] Performed By: #### 2 4323-8 ####[facility] LABCLIA [id number] [place] [address] Calcium [Mass/Vol] 9.7 mg/dL Normal 8.5-10.2 [facility] Comment on above: Order Comment: Speci men Type: BLOOD SPECIMENOrdering Facility: [facility] Address: [address] [place] [address] Performed By: #### 2 4323-8 ####[facility] LABCLIA [id number] [place] [address] Chloride [Moles/Vol] 103 mmol/L Normal 98-107 [facility] [facility] Comment on above: Order Comment: Speci men Type: BLOOD SPECIMENOrdering Facility: [facility] Address: [address] [place] [address] Performed By: #### 2 4323-8 ####[facility] LABCLIA [id number] [place] [address] CO2 [Moles/Vol] 23 mmol/L Normal 22-30 [facility] Comment on above: Order Comment: Speci men Type: BLOOD SPECIMENOrdering Facility: [facility] Address: [address] [place] [address] Performed By: #### 2 4323-8 ####[facility] LABCLIA [id number] [place] [address] Creatinine [Mass/Vol] 0.50 mg/dL Low 0.58-0.96 [facility] Comment on above: Order Comment: Speci men Type: BLOOD SPECIMENOrdering Facility: [facility] Address: [address] [place] [address] Performed By: #### 2 4323-8 ####[facility] LABCLIA [id number] [place] [address] eGFRcr SerPlBld CKD-EPI 2020 119 mL/min/1.73m??? Normal >=60 [facility] Comment on above: Order Comment: Semaj cortés Type: BLOOD SPECIMENOrdering Facility: [facility] Address: [address] [place] [address] Result Comment: Erin mated Glomerular Filtration Rate [...] actual GFR. Performed By: #### 2 4323-8 ####[facility] LABCLIA [id number] [place] [address] Glucose [Mass/Vol] 221 mg/dL High 74-99 [facility] Comment on above: Order Comment: Speci moo Type: BLOOD SPECIMENOrdering Facility: [facility] Address: [address] [place] [address] Result Comment: The [place] Diabetes Association (ADA) provides guidance for cutoff [...] Standards of Medical Care in Diabetes 2016, [place] Diabetes [employer]. Diabetes Care. 2016.39(Suppl 1). Performed By: #### 2 4323-8 ####[facility] LABCLIA [id number] [place] [address] Potassium [Moles/Vol] 4.1 mmol/L Normal 3.7-5.1 [facility] Comment on above: Order Comment: Speci men Type: BLOOD SPECIMENOrdering Facility: [facility] Address: [address] [place] [address] Performed By: #### 2 4323-8 ####[facility] LABCLIA [id number] [place] [address] Protein [Mass/Vol] 6.8 g/dL Normal 6.3-8.0 [facility] Comment on above: Order Comment: Speci men Type: BLOOD SPECIMENOrdering Facility: [facility] Address: [address] [place] [address] Performed By: #### 2 4323-8 ####[facility] LABCLIA [id number] [place] [address] Sodium [Moles/Vol] 136 mmol/L Normal 136-144 [facility] Comment on above: Order Comment: Speci men Type: BLOOD SPECIMENOrdering Facility: [facility] Address: [address] [place] [address] Performed By: #### 2 4323-8 ####[facility] LABCLIA [id number] [place] [address] Urea nitrogen [Mass/Vol] 15 mg/dL Normal 7-21 [facility] Comment on above: Order Comment: Speci men Type: BLOOD SPECIMENOrdering Facility: [facility] Address: [address] [place] [address] Performed By: #### 2 4323-8 ####[facility] LABCLIA [id number] [place] [address] ESR Westergren method (Bld) [Velocity]on 01-11-2025 ESR (Bld) [Velocity] 34 mm/h High 0-20 [facility] Comment on above: Order Comment: Speci men Type: BLOOD SPECIMENOrdering Facility: [facility] Address: [address] [place] [address] Performed By: #### 4 537-7 ####[facility] LABCLIA [id number] [place] [address] [place] HBV core Ab Ser Qlon 025 HBV core Ab Ql (S) Negative Normal Negative [facility] Comment on above: Order Comment: Speci men Type: BLOOD SPECIMENOrdering Facility: [facility] Address: [address] [place] [address] Result Comment: No e vidence of current or past infection with Hepatitis B virus. Should recent infection be suspected, repeat testing may be considered 3-4 weeks after this draw. Performed By: #### 5 195-3, 89034-5, 70228-3 ####[facility] LABIA [id number] [address] HBV surface Ab Ql (S)on 12-23 HBV surface Ab Qn (S) 177.77 mIU/mL Normal [facility] Comment on above: Order Comment: Speci men Type: BLOOD SPECIMENOrdering Facility: [facility] Address: [address] [place] [address] Result Comment: <8 m IU/mL: No serological evidence of immunity to Hepatitis B Virus.>/= 8 to <12 mIU/mL: No serological evidence of immunity to Hepatitis B Virus.>/= 12 mIU/mL: Consistent with serological evidence of immunity to Hepatitis B Virus. Performed By: #### 5 195-3, 62069-5, 37982-8 ####[facility] LABIA [id number] [address] HBV surface Ab Ser Qlon 12-23 HBV surface Ab Ql (S) Positive Normal [facility] Comment on above: Order Comment: Speci men Type: BLOOD SPECIMENOrdering Facility: [facility] Address: [address] [place] [address] Result Comment: Cons istent with serological evidence of immunity to Hepatitis B Virus. Performed By: #### 5 195-3, 91098-1, 12327-5 ####[facility] LABCLIA [id number] [place] [address] [place] HBV surface Ag Ser Qlon 12-23 HBV surface Ag Ql (S) Negative Normal Negative [facility] Comment on above: Order Comment: Speci men Type: BLOOD SPECIMENOrdering Facility: [facility] Address: [address] [place] [address] Performed By: #### 5 195-3, 08596-5, 72505-8 ####[facility] LABIA [id number] [place] [address] [place] HCV Ab Ser Qlon 01-11-2025 HCV Ab Ql (S) Negative Normal Negative [facility] Comment on above: Order Comment: Speci men Type: BLOOD SPECIMENOrdering Facility: [facility] Address: [address] [place] [address] Result Comment: The result suggests no evidence of infection with Hepatitis C virus. Should recent infection be suspected, repeat testing may be considered 4-6 weeks after this draw. Performed By: #### 1 6128-1 ####[facility] LABIA [id number] [place] [address] [place] Vit B12 SerPl-mCncon 025 Cobalamin (Vitamin B12) [Mass/Vol] 710 pg/mL Normal 232-1245 [facility] Comment on above: Order Comment: Speci men Type: BLOOD SPECIMENOrdering Facility: [facility] Address: [address] [place] [address] Performed By: #### 1 988-5, 2132-9 ####[facility] LABIA [id number] [place] [address] [place] CBC W Auto Differential pane l (Bld)on 11-29-2024 Basophils (Bld) [#/Vol] 0.09 10*3/uL Normal <0.11 [facility] Comment on above: Order Comment: Speci men Type: BLOOD SPECIMENOrdering Facility: [facility] Address: [address] [place] [address] Performed By: #### 5 7021-8 ####[facility] LABCLIA [id number] [place] [address] Basophils/100 WBC (Bld) 0.7 % Normal [facility] Comment on above: Order Comment: Speci men Type: BLOOD SPECIMENOrdering Facility: [facility] Address: [address] [place] [address] Performed By: #### 5 7021-8 ####[facility] LABCLIA [id number] [place] [address] Differential cell count method Nom (Bld) Auto Normal [facility] Comment on above: Order Comment: Speci men Type: BLOOD SPECIMENOrdering Facility: [facility] Address: [address] [place] [address] Performed By: #### 5 7021-8 ####[facility] LABCLIA [id number] [place] [address] Eosinophils (Bld) [#/Vol] 0.09 10*3/uL Normal <0.46 [facility] Comment on above: Order Comment: Speci men Type: BLOOD SPECIMENOrdering Facility: [facility] Address: [address] [place] [address] Performed By: #### 5 7021-8 ####[facility] LABCLIA [id number] [place] [address] Eosinophils/100 WBC (Bld) 0.7 % Normal [facility] Comment on above: Order Comment: Speci men Type: BLOOD SPECIMENOrdering Facility: [facility] Address: [address] [place] [address] Performed By: #### 5 7021-8 ####[facility] LABCLIA [id number] [place] [address] Erythrocyte distribution width (RBC) [Ratio] 14.8 % Normal 11.5-15.0 [facility] Comment on above: Order Comment: Speci men Type: BLOOD SPECIMENOrdering Facility: [facility] Address: [address] [place] [address] Performed By: #### 5 7021-8 ####[facility] LABCLIA [id number] [place] [address] Hematocrit (Bld) [Volume fraction] 42.9 % Normal 36.0-46.0 [facility] Comment on above: Order Comment: Speci men Type: BLOOD SPECIMENOrdering Facility: [facility] Address: [address] [place] [address] Performed By: #### 5 7021-8 ####[facility] LABCLIA [id number] [place] [address] Hemoglobin (Bld) [Mass/Vol] 14.0 g/dL Normal 11.5-15.5 [facility] Comment on above: Order Comment: Speci men Type: BLOOD SPECIMENOrdering Facility: [facility] Address: [address] [place] [address] Performed By: #### 5 7021-8 ####[facility] LABCLIA [id number] [place] [address] Immature granulocytes (Bld) [#/Vol] 0.18 10*3/uL High <0.10 [facility] Comment on above: Order Comment: Speci men Type: BLOOD SPECIMENOrdering Facility: [facility] Address: [address] [place] [address] Performed By: #### 5 7021-8 ####[facility] LABCLIA [id number] [place] [address] Immature granulocytes/100 WBC (Bld) 1.5 % Normal [facility] Comment on above: Order Comment: Speci men Type: BLOOD SPECIMENOrdering Facility: [facility] Address: [address] [place] [address] Performed By: #### 5 7021-8 ####[facility] LABCLIA [id number] [place] [address] Lymphocytes (Bld) [#/Vol] 1.99 10*3/uL Normal 1.00-4.00 [facility] Comment on above: Order Comment: Speci men Type: BLOOD SPECIMENOrdering Facility: [facility] Address: [address] [place] [address] Performed By: #### 5 7021-8 ####[facility] LABCLIA [id number] [place] [address] Lymphocytes/100 WBC (Bld) 16.4 % Normal [facility] Comment on above: Order Comment: Speci men Type: BLOOD SPECIMENOrdering Facility: [facility] Address: [address] [place] [address] Performed By: #### 5 7021-8 ####[facility] LABIA [id number] [place] [address] MCH (RBC) [Entitic mass] 31.7 pg Normal 26.0-34.0 [facility] Comment on above: Order Comment: Speci men Type: BLOOD SPECIMENOrdering Facility: [facility] Address: [address] [place] [address] Performed By: #### 5 7021-8 ####[facility] LABIA [id number] [place] [address] MCHC (RBC) [Mass/Vol] 32.6 g/dL Normal 30.5-36.0 [facility] Comment on above: Order Comment: Speci men Type: BLOOD SPECIMENOrdering Facility: [facility] Address: [address] [place] [address] Performed By: #### 5 7021-8 ####[facility] LABIA [id number] [place] [address] MCV (RBC) [Entitic vol] 97.1 fL Normal 80.0-100.0 [facility] Comment on above: Order Comment: Speci men Type: BLOOD SPECIMENOrdering Facility: [facility] Address: [address] [place] [address] Performed By: #### 5 7021-8 ####[facility] LABCLIA [id number] [place] [address] Monocytes (Bld) [#/Vol] 0.67 10*3/uL Normal <0.87 [facility] Comment on above: Order Comment: Speci men Type: BLOOD SPECIMENOrdering Facility: [facility] Address: [address] [place] [address] Performed By: #### 5 7021-8 ####[facility] LABCLIA [id number] [place] [address] Monocytes/100 WBC (Bld) 5.5 % Normal [facility] Comment on above: Order Comment: Speci men Type: BLOOD SPECIMENOrdering Facility: [facility] Address: [address] [place] [address] Performed By: #### 5 7021-8 ####[facility] LABCLIA [id number] [place] [address] Neutrophils (Bld) [#/Vol] 9.15 10*3/uL High 1.45-7.50 [facility] Comment on above: Order Comment: Speci men Type: BLOOD SPECIMENOrdering Facility: [facility] Address: [address] [place] [address] Performed By: #### 5 7021-8 ####[facility] LABCLIA [id number] [place] [address] Neutrophils/100 WBC (Bld) 75.2 % Normal [facility] Comment on above: Order Comment: Speci men Type: BLOOD SPECIMENOrdering Facility: [facility] Address: [address] [place] [address] Performed By: #### 5 7021-8 ####[facility] LABCLIA [id number] [place] [address] Nucleated RBC (Bld) [#/Vol] 10*3/uL Normal <0.01 [facility] Comment on above: Order Comment: Speci men Type: BLOOD SPECIMENOrdering Facility: [facility] Address: [address] [place] [address] Performed By: #### 5 7021-8 ####[facility] LABCLIA [id number] [place] [address] Nucleated RBC/100 WBC (Bld) [Ratio] 0.0 /100 WBC Normal [facility] Comment on above: Order Comment: Speci men Type: BLOOD SPECIMENOrdering Facility: [facility] Address: [address] [place] [address] Performed By: #### 5 7021-8 ####[facility] LABCLIA [id number] [place] [address] Platelet mean volume (Bld) [Entitic vol] 9.7 fL Normal 9.0-12.7 [facility] Comment on above: Order Comment: Speci men Type: BLOOD SPECIMENOrdering Facility: [facility] Address: [address] [place] [address] Performed By: #### 5 7021-8 ####[facility] LABCLIA [id number] [place] [address] Platelets (Bld) [#/Vol] 281 10*3/uL Normal 150-400 [facility] Comment on above: Order Comment: Speci men Type: BLOOD SPECIMENOrdering Facility: [facility] Address: [address] [place] [address] Performed By: #### 5 7021-8 ####[facility] LABCLIA [id number] [place] [address] RBC (Bld) [#/Vol] 4.42 10*6/uL Normal 3.90-5.20 [facility] Comment on above: Order Comment: Speci men Type: BLOOD SPECIMENOrdering Facility: [facility] Address: [address] [place] [address] Performed By: #### 5 7021-8 ####[facility] LABCLIA [id number] [place] [address] WBC (Bld) [#/Vol] 12.17 10*3/uL High 3.70-11.00 [facility] Comment on above: Order Comment: Speci men Type: BLOOD SPECIMENOrdering Facility: [facility] Address: [address] [place] [address] Performed By: #### 5 7021-8 ####[facility] LABCLIA [id number] [place] [address] CNOVSPon 11-29-2024 CNOVSP Normal [facility] Comprehensive metabolic 2000 panelon 11-29-2024 Albumin [Mass/Vol] 4.1 g/dL Normal 3.9-4.9 [facility] Comment on above: Order Comment: Speci men Type: BLOOD SPECIMENOrdering Facility: [facility] Address: [address] [place] [address] Performed By: #### 2 4323-8 ####[facility] LABCLIA [id number] [place] [address] ALP [Catalytic activity/Vol] 61 U/L Normal 34-123 [facility] Comment on above: Order Comment: Speci men Type: BLOOD SPECIMENOrdering Facility: [facility] Address: [address] [place] [address] Performed By: #### 2 4323-8 ####[facility] LABCLIA [id number] [place] [address] ALT [Catalytic activity/Vol] 39 U/L High 7-38 [facility] Comment on above: Order Comment: Speci men Type: BLOOD SPECIMENOrdering Facility: [facility] Address: [address] [place] [address] Performed By: #### 2 4323-8 ####[facility] LABCLIA [id number] [place] [address] Anion gap [Moles/Vol] 13 mmol/L Normal 8-15 [facility] Comment on above: Order Comment: Speci men Type: BLOOD SPECIMENOrdering Facility: [facility] Address: [address] [place], [place] [address] Performed By: #### 2 4323-8 ####[facility] LABCLIA [id number] [place] [address] AST [Catalytic activity/Vol] 16 U/L Normal 13-35 [facility] Comment on above: Order Comment: Speci men Type: BLOOD SPECIMENOrdering Facility: [facility] Address: [address] [place] [address] Performed By: #### 2 4323-8 ####[facility] LABCLIA [id number] [place] [address] Bilirubin [Mass/Vol] 0.2 mg/dL Normal 0.2-1.3 [facility] Comment on above: Order Comment: Speci men Type: BLOOD SPECIMENOrdering Facility: [facility] Address: [address] [place] [address] Performed By: #### 2 4323-8 ####[facility] LABCLIA [id number] [place] [address] Calcium [Mass/Vol] 9.7 mg/dL Normal 8.5-10.2 [facility] Comment on above: Order Comment: Speci men Type: BLOOD SPECIMENOrdering Facility: [facility] Address: [address] [place] [address] Performed By: #### 2 4323-8 ####[facility] LABCLIA [id number] [place] [address] Chloride [Moles/Vol] 102 mmol/L Normal 98-107 [facility] Comment on above: Order Comment: Speci men Type: BLOOD SPECIMENOrdering Facility: [facility] Address: [address] [place] [address] Performed By: #### 2 4323-8 ####[facility] LABCLIA [id number] [place] [address] CO2 [Moles/Vol] 23 mmol/L Normal 22-30 [facility] Comment on above: Order Comment: Speci men Type: BLOOD SPECIMENOrdering Facility: [facility] Address: [address] [place] [address] Performed By: #### 2 4323-8 ####[facility] LABCLIA [id number] [place] [address] Creatinine [Mass/Vol] 0.58 mg/dL Normal 0.58-0.96 [facility] Comment on above: Order Comment: Speci men Type: BLOOD SPECIMENOrdering Facility: [facility] Address: [address] [place] [address] Performed By: #### 2 4323-8 ####[facility] LABIA [id number] [place] [address] Creatinine and Glomerular filtration rate.predicted panel (S/P/Bld) 115 mL/min/1.73m??? Normal >=60 [facility] Comment on above: Order Comment: Speci men Type: BLOOD SPECIMENOrdering Facility: [facility] Address: [address] [place] [address] Result Comment: Erin mated Glomerular Filtration Rate [...] actual GFR. Performed By: #### 2 4323-8 ####[facility] LABCLIA [id number] [place] [address] Glucose [Mass/Vol] 233 mg/dL High 74-99 [facility] Comment on above: Order Comment: Speci men Type: BLOOD SPECIMENOrdering Facility: [facility] Address: [address] [place] [address] Result Comment: The [place] Diabetes Association (ADA) provides guidance for cutoff [...] Standards of Medical Care in Diabetes 2016, [place] [employer]. Diabetes Care. 2016.39(Suppl 1). Performed By: #### 2 4323-8 ####[facility] LABCLIA [id number] [place] [address] Potassium [Moles/Vol] 4.0 mmol/L Normal 3.7-5.1 [facility] Comment on above: Order Comment: Speci men Type: BLOOD SPECIMENOrdering Facility: [facility] Address: [address] [place] [place] [id number] Performed By: #### 2 4323-8 ####[facility] LABCLIA [id number] [place] [address] Protein [Mass/Vol] 7.0 g/dL Normal 6.3-8.0 [facility] Comment on above: Order Comment: Speci men Type: BLOOD SPECIMENOrdering Facility: [facility] Address: [address] [place] [address] Performed By: #### 2 4323-8 ####[facility] LABCLIA [id number] [place] [address] Sodium [Moles/Vol] 138 mmol/L Normal 136-144 [facility] Comment on above: Order Comment: Speci men Type: BLOOD SPECIMENOrdering Facility: [facility] Address: [address] [place] [address] Performed By: #### 2 4323-8 ####[facility] LABCLIA [id number] [place] [address] Urea nitrogen [Mass/Vol] 16 mg/dL Normal 7-21 [facility] Comment on above: Order Comment: Speci men Type: BLOOD SPECIMENOrdering Facility: [facility] Address: [address] [place] [address] Performed By: #### 2 4323-8 ####[facility] LABCLIA [id number] [place] [address] Ferritin SerPl-mCncon 2024 Ferritin [Mass/Vol] 63.6 ng/mL Normal 14.7-205.1 [facility] Comment on above: Order Comment: Speci men Type: BLOOD SPECIMENOrdering Facility: [facility] Address: [address] [place] [address] Performed By: #### 2 284-8, 12557-2, 2275-08, 2132-01 ####[facility] LABCLIA [id number] [place] [address] [place] Folate SerPl-mCncon 11-30-19 25 Folate [Mass/Vol] ng/mL Normal >4.7 [facility] Comment on above: Order Comment: Speci men Type: BLOOD SPECIMENOrdering Facility: [facility] Address: [address] [place] [address] Result Comment: A re sult of > 20 ng/mL is not necessarily indicative of a pathologic or treatable condition: it reflects a limitation of the test methodology.Assay reference range: 4.8 to 24.2 ng/mL. Suitable for detection of folate deficiency.Reference:Folate III (Folate III) [package insert V 1.0 [place]]. [facility], [place], [place]: March 2015. Performed By: #### 2 284-8, 46413-2, 4, 2132-01 ####[facility] LABCLIA [id number] [place] [id number] [place] IMMUNOGLOBULINS,IGG,IGA,IGMo n 11-29-2024 IgA [Mass/Vol] 169 mg/dL Normal 70-400 [facility] Comment on above: Order Comment: Speci men Type: BLOOD SPECIMENOrdering Facility: [facility] Address: [address] [place] [address] Performed By: #### S ERIMM ####[facility] LABCLIA [id number] [place] [address] [place] IgG [Mass/Vol] 596 mg/dL Low 700-1600 [facility] Comment on above: Order Comment: Speci men Type: BLOOD SPECIMENOrdering Facility: [facility] Address: [address] [place] [address] Performed By: #### S ERIMM ####[facility] LABCLIA [id number] [place] [address] [place] IgM [Mass/Vol] 410 mg/dL High 40-230 [facility] Comment on above: Order Comment: Speci men Type: BLOOD SPECIMENOrdering Facility: [facility] Address: [address] [place] [address] Performed By: #### S ERIMM ####[facility] LABCLIA [id number] [place] [address] [place] [employer] binding capaci ty panelon 11-29-2024 Iron [Mass/Vol] 154 ug/dL Normal 41-186 [facility] Comment on above: Order Comment: Speci men Type: BLOOD SPECIMENOrdering Facility: [facility] Address: [address] [place] [address] Performed By: #### 2 284-8, 09100-8, 2276-4, 2132-9 ####[facility] LABCLIA [id number] [place] [address] [place] Iron binding capacity [Mass/Vol] 363 ug/dL Normal 232-386 [facility] Comment on above: Order Comment: Speci men Type: BLOOD SPECIMENOrdering Facility: [facility] Address: [address] [place], [place] [id number] Performed By: #### 2 284-8, 30110-8, 2275-08, 2132-01 ####[facility] LABCLIA [id number] [address] [address] [place] Iron/TIBC [Molar ratio] 42.4 % Normal 15.0-57.0 [place] [facility] Comment on above: Order Comment: Speci men Type: BLOOD SPECIMENOrdering Facility: [facility] Address: [address] [place], [place] [address] Performed By: #### 2 284-8, 21725-3, 2275-08, 2132-01 ####[facility] LABCLIA [id number] [place] [id number] [place] Vit B12 SerPl-mClana 025 Cobalamin (Vitamin B12) [Mass/Vol] 775 pg/mL Normal 232-1245 [facility] Comment on above: Order Comment: Speci men Type: BLOOD SPECIMENOrdering Facility: [facility] Address: [address] [place] [address] Performed By: #### 2 284-8, 07978-4, 2275-08, 2132-01 ####[facility] LABIA [id number] [place] [id number] [place] CNPNon 11-20-2024 CNPN Normal [facility] CNPNon 11-15-2024 CNPN Normal [facility] CNPNon 10-06-2024 CNPN Normal [facility] 25(OH)D3 SerPl-mCncon 2024 25-hydroxyvitamin D3 [Mass/Vol] 30.9 ng/mL Low 31.0-80.0 [facility] Comment on above: Order Comment: Speci men Type: BLOOD SPECIMENOrdering Facility: [facility] Address: [address] [place] [address] Result Comment: Clas sification of 25 [place] Vitamin D status:Deficiency/Insufficiency: < or = 30 ng/ml.Sufficiency/Optimal Levels: 31-80 ng/mLToxicity: > 100 ng/mL.Test performed by chemiluminescent immunoassay. Performed By: #### 1 989-3 ####[facility] LABCLIA [id number] [address] [place] OF [facility] 25-hydroxyvitamin D3 [Mass/V ol]on 10-02-2024 Interpretation and review of laboratory results Abnormal [facility] The reference range interval was based on an analysis of samples from healthy adults and may not pertain to children from 0-18 years old. [facility] C-REACTIVE PROTEINon 025 CRP [Mass/Vol] mg/dL NINF - 0.9 mg/dL [facility] CBC panel Auto (Bld)on 10-02 Erythrocyte distribution width (RBC) [Ratio] 16.2 % High 11.5 - 15.0 % [facility] Hematocrit (Bld) [Volume fraction] 41.3 % 36.0 - 46.0 % [facility] Hemoglobin (Bld) [Mass/Vol] 13.7 g/dL 11.5 - 15.5 g/dL [facility] Interpretation and review of laboratory results Abnormal [facility] MCH (RBC) [Entitic mass] 31.1 pg 26.0 - 34.0 pg [facility] MCHC (RBC) [Mass/Vol] 33.2 g/dL 30.5 - 36.0 g/dL [facility] MCV (RBC) [Entitic vol] 93.7 fL 80.0 - 100.0 fL [facility] Nucleated RBC (Bld) [#/Vol] NINF [facility] Platelet mean volume (Bld) [Entitic vol] 10.1 fL 9.0 - 12.7 fL [facility] Platelets (Bld) [#/Vol] 265 10*3/uL [facility] RBC (Bld) [#/Vol] 4.41 10*6/uL 3.90 - 5.2 0 m/uL [facility] WBC (Bld) [#/Vol] 10.07 10*3/uL [facility] Erythrocyte distribution width (RBC) [Ratio] 16.2 % High 11.5-15.0 [facility] Comment on above: Order Comment: Speci men Type: BLOOD SPECIMENOrdering Facility: [facility] Address: [address] [place] [address] Performed By: #### 5 8410-2 ####[facility] LABCLIA [id number] [place] [address] Hematocrit (Bld) [Volume fraction] 41.3 % Normal 36.0-46.0 [facility] Comment on above: Order Comment: Speci men Type: BLOOD SPECIMENOrdering Facility: [facility] Address: [address] [place] [address] Performed By: #### 5 8410-2 ####[facility] LABCLIA [id number] [place] [address] Hemoglobin (Bld) [Mass/Vol] 13.7 g/dL Normal 11.5-15.5 [facility] Comment on above: Order Comment: Speci men Type: BLOOD SPECIMENOrdering Facility: [facility] Address: [address] [place] [address] Performed By: #### 5 8410-2 ####[facility] LABCLIA [id number] [place] [address] MCH (RBC) [Entitic mass] 31.1 pg Normal 26.0-34.0 [facility] Comment on above: Order Comment: Speci men Type: BLOOD SPECIMENOrdering Facility: [facility] Address: [address] [place] [address] Performed By: #### 5 8410-2 ####[facility] LABCLIA [id number] [place] [address] MCHC (RBC) [Mass/Vol] 33.2 g/dL Normal 30.5-36.0 [facility] Comment on above: Order Comment: Speci men Type: BLOOD SPECIMENOrdering Facility: [facility] Address: [address] [place] [address] Performed By: #### 5 8410-2 ####[facility] LABCLIA [id number] [place] [address] MCV (RBC) [Entitic vol] 93.7 fL Normal 80.0-100.0 [facility] Comment on above: Order Comment: Speci men Type: BLOOD SPECIMENOrdering Facility: [facility] Address: [address] [place] [address] Performed By: #### 5 8410-2 ####[facility] LABCLIA [id number] [place] [address] Nucleated RBC (Bld) [#/Vol] 10*3/uL Normal <0.01 [facility] Comment on above: Order Comment: Speci men Type: BLOOD SPECIMENOrdering Facility: [facility] Address: [address] [place] [address] Performed By: #### 5 8410-2 ####[facility] LABCLIA [id number] [place] [address] Platelet mean volume (Bld) [Entitic vol] 10.1 fL Normal 9.0-12.7 [facility] Comment on above: Order Comment: Speci men Type: BLOOD SPECIMENOrdering Facility: [facility] Address: [address] [place] [address] Performed By: #### 5 8410-2 ####[facility] LABCLIA [id number] [place] [address] Platelets (Bld) [#/Vol] 265 10*3/uL Normal 150-400 [facility] Comment on above: Order Comment: Speci men Type: BLOOD SPECIMENOrdering Facility: [facility] Address: [address] [place] [address] Performed By: #### 5 8410-2 ####[facility] LABCLIA [id number] [place] [address] RBC (Bld) [#/Vol] 4.41 10*6/uL Normal 3.90-5.20 [facility] Comment on above: Order Comment: Speci men Type: BLOOD SPECIMENOrdering Facility: [facility] Address: [address] [place] [address] Performed By: #### 5 8410-2 ####[facility] LABCLIA [id number] [place] [address] WBC (Bld) [#/Vol] 10.07 10*3/uL Normal 3.70-11.00 [facility] Comment on above: Order Comment: Speci men Type: BLOOD SPECIMENOrdering Facility: [facility] Address: [address] [place] [address] Performed By: #### 5 8410-2 ####[facility] LABCLIA [id number] [place] [address] CRP [facility]Pl[facility]20[facility] CRP [Mass/Vol] mg/L Normal <0.9 [facility] Comment on above: Order Comment: Speci men Type: BLOOD SPECIMENOrdering Facility: [facility] Address: [address] [place] [address] Performed By: #### 1 988-5 ####[facility] LABCLIA [id number] [place] [id number] [place] CRP [Mass/Vol]on 10-02-2024 Interpretation and review of laboratory results Normal [facility] Comprehensive metabolic 2000 panelOrdered By: Josse Merlos on 10-02-2024 Albumin [Mass/Vol] 3.9 g/dL 3.9 - 4.9 g/dL [facility] ALP [Catalytic activity/Vol] 61 U/L 34 - 123 U/L [facility] ALT [Catalytic activity/Vol] 41 U/L High 7 - 38 U/L [facility] Anion gap [Moles/Vol] 14 mmol/L 8 - 15 mmol/L [facility] AST [Catalytic activity/Vol] 18 U/L 13 - 35 U/L [facility] Bilirubin [Mass/Vol] 0.2 mg/dL 0.2 - 1 .3 mg/dL [facility] Calcium [Mass/Vol] 9.6 mg/dL 8.5 - 10. 2 mg/dL [facility] Chloride [Moles/Vol] 107 mmol/L 98 - 10 7 mmol/L [facility] CO2 [Moles/Vol] 20 mmol/L Low 22 - 30 mmol/L [facility] Creatinine [Mass/Vol] 0.59 mg/dL 0.58 - 0.96 mg/dL [facility] GFR/1.73 sq M.predicted among non-blacks MDRD (S/P/Bld) [Vol rate/Area] 115 mL/min/{1.73_m2} - PINF [facility] Comment on above: Estimated [...] 216 mg/dL High 74 - 99 mg/dL [facility] Comment on above: The [place] Diabete s Association (ADA) provides guidance for [...] Standards of Medical Care in Diabetes 2016, [place] Diabetes [employer]. Diabetes Care. 2016.39(Suppl 1). Interpretation and review of laboratory results Abnormal [facility] Potassium [Moles/Vol] 4.1 mmol/L 3.7 - 5.1 mmol/L [facility] Protein [Mass/Vol] 6.8 g/dL 6.3 - 8.0 g/dL [facility] Sodium [Moles/Vol] 141 mmol/L 136 - 144 mmol/L [facility] Urea nitrogen [Mass/Vol] 19 mg/dL 7 - 21 mg/dL [facility] Comprehensive metabolic 2000 panelon 10-02-2024 Albumin [Mass/Vol] 3.9 g/dL Normal 3.9-4.9 [facility] Comment on above: Order Comment: Speci men Type: BLOOD SPECIMENOrdering Facility: [facility] Address: [address] [place] [address] Performed By: #### 2 4323-8 ####[facility] LABCLIA [id number] [place] [address] ALP [Catalytic activity/Vol] 61 U/L Normal 34-123 [facility] Comment on above: Order Comment: Speci men Type: BLOOD SPECIMENOrdering Facility: [facility] Address: [address] [place] [address] Performed By: #### 2 4323-8 ####[facility] LABCLIA [id number] [place] [address] ALT [Catalytic activity/Vol] 41 U/L High 7-38 [facility] Comment on above: Order Comment: Speci men Type: BLOOD SPECIMENOrdering Facility: [facility] Address: [address] [place] [address] Performed By: #### 2 4323-8 ####[facility] LABCLIA [id number] [place] [address] Anion gap [Moles/Vol] 14 mmol/L Normal 8-15 [facility] Comment on above: Order Comment: Speci men Type: BLOOD SPECIMENOrdering Facility: [facility] Address: [address] [place] [address] Performed By: #### 2 4323-8 ####[facility] LABCLIA [id number] [place] [address] AST [Catalytic activity/Vol] 18 U/L Normal 13-35 [facility] Comment on above: Order Comment: Speci men Type: BLOOD SPECIMENOrdering Facility: [facility] Address: [address] [place] [address] Performed By: #### 2 4323-8 ####[facility] LABCLIA [id number] [place] [address] Bilirubin [Mass/Vol] 0.2 mg/dL Normal 0.2-1.3 [facility] Comment on above: Order Comment: Speci men Type: BLOOD SPECIMENOrdering Facility: [facility] Address: [address] [place] [address] Performed By: #### 2 4323-8 ####[facility] LABCLIA [id number] [place] [address] Calcium [Mass/Vol] 9.6 mg/dL Normal 8.5-10.2 [facility] Comment on above: Order Comment: Speci men Type: BLOOD SPECIMENOrdering Facility: [facility] Address: [address] [place] [address] Performed By: #### 2 4323-8 ####[facility] LABCLIA [id number] [place] [address] Chloride [Moles/Vol] 107 mmol/L Normal 98-107 [facility] Comment on above: Order Comment: Speci men Type: BLOOD SPECIMENOrdering Facility: [facility] Address: [address] [place] [address] Performed By: #### 2 4323-8 ####[facility] LABCLIA [id number] [place] [address] CO2 [Moles/Vol] 20 mmol/L Low 22-30 [facility] Comment on above: Order Comment: Speci men Type: BLOOD SPECIMENOrdering Facility: [facility] Address: [address] [place] [address] Performed By: #### 2 4323-8 ####[facility] LABCLIA [id number] [place] [address] Creatinine [Mass/Vol] 0.59 mg/dL Normal 0.58-0.96 [facility] Comment on above: Order Comment: Speci men Type: BLOOD SPECIMENOrdering Facility: [facility] Address: [address] [place], [place] [address] Performed By: #### 2 4323-8 ####[facility] LABCLIA [id number] [place] [address] Creatinine and Glomerular filtration rate.predicted panel (S/P/Bld) 115 mL/min/1.73m??? Normal >=60 [facility] Comment on above: Order Comment: Semaj cortés Type: BLOOD SPECIMENOrdering Facility: [facility] Address: [address] [place] [address] Result Comment: Erin mated Glomerular Filtration Rate [...] actual GFR. Performed By: #### 2 4323-8 ####[facility] LABCLIA [id number] [place] [address] Glucose [Mass/Vol] 216 mg/dL High 74-99 [facility] Comment on above: Order Comment: Semaj cortés Type: BLOOD SPECIMENOrdering Facility: [facility] Address: [address] [place] [address] Result Comment: The [place] Diabetes Association (ADA) provides guidance for cutoff [...] Standards of Medical Care in Diabetes 2016, [place] Diabetes Association. Diabetes Care. 2016.39(Suppl 1). Performed By: #### 2 4323-8 ####[facility] LABCLIA [id number] [place] [address] Potassium [Moles/Vol] 4.1 mmol/L Normal 3.7-5.1 [facility] Comment on above: Order Comment: Speci men Type: BLOOD SPECIMENOrdering Facility: [facility] Address: [address] [place] [address] Performed By: #### 2 4323-8 ####[facility] LABCLIA [id number] [place] [address] Protein [Mass/Vol] 6.8 g/dL Normal 6.3-8.0 [facility] Comment on above: Order Comment: Speci men Type: BLOOD SPECIMENOrdering Facility: [facility] Address: [address] [place] [address] Performed By: #### 2 4323-8 ####[facility] LABCLIA [id number] [place] [address] Sodium [Moles/Vol] 141 mmol/L Normal 136-144 [facility] Comment on above: Order Comment: Speci men Type: BLOOD SPECIMENOrdering Facility: [facility] Address: [address] [place] [address] Performed By: #### 2 4323-8 ####[facility] LABCLIA [id number] [place] [address] Urea nitrogen [Mass/Vol] 19 mg/dL Normal 7-21 [facility] Comment on above: Order Comment: Speci men Type: BLOOD SPECIMENOrdering Facility: [facility] Address: [address] [place] [address] Performed By: #### 2 4323-8 ####[facility] LABIA [id number] [place] [address] ESR Westergren method (Bld) [Velocity]on 10-02-2024 ESR (Bld) [Velocity] 28 mm/h [facility] Interpretation and review of laboratory results Abnormal [facility] ESR (Bld) [Velocity] 28 mm/h High 0-20 [facility] Comment on above: Order Comment: Speci men Type: BLOOD SPECIMENOrdering Facility: [facility] Address: [address] [place] [address] Performed By: #### 4 537-7 ####[facility] LABCLIA [id number] [place] [address] [place] VITAMIN D 25 HYDROXYon 10-02 25-hydroxyvitamin D3 [Mass/Vol] 30.9 ng/mL Low 31.0 - 80.0 ng/mL [facility] Comment on above: Classification of 25 [place] Vitamin D status: Deficiency/Insufficiency: < or = 30 ng/ml. Sufficiency/Optimal Levels: 31-80 ng/mL Toxicity: > 100 ng/mL. Test performed by chemiluminescent immunoassay. DNA EXTRACTION BLOODOrdered By: Dominga Araujo on 09-20-2024 CONCENTRATION (NG/UL) 189.3 ng/ul [facility] Total Yield 94.65 ug [facility] Comment on above: Specimens will be av ailable for 3 years from date of collection. To order testing on this specimen for [facility] patients, please place an [facility] order for DNA and RNA for Clinical Testing (SQNUCADD). To order for patients outside of the [facility] system, please request DNA and RNA for Clinical Testing, order code [email or web address]. If additional paperwork is required for testing, please email completed forms to . VOLUME (UL) OF DNA 500 uL [facility] CNOVon 09-19-2024 CNOV Normal [facility] DNA EXTRACTION BLOODon 09-19 CONCENTRATION (NG/UL) 189.3 ng/ul Normal [facility] Comment on above: Order Comment: Speci men Type: BLOOD SPECIMENOrdering Facility: [facility] Address: [address] [place] [address] Performed By: #### N UCBLD ####[facility] LIMSCLIA [id number] [place] [address] [place] TOTAL YIELD 94.65 ug Normal [facility] Comment on above: Order Comment: Speci men Type: BLOOD SPECIMENOrdering Facility: [facility] Address: [address] [place] [address] Result Comment: Spec imens will be available for 3 years from date of collection. To order testing on this specimen for [facility] patients, please place an Epic order for DNA and RNA for Clinical Testing (SQNUCADD). To order for patients outside of the [facility] system, please request DNA and RNA for Clinical Testing, order code [email or web address].If additional paperwork is required for testing, please email completed forms to . Performed By: #### N UCBLD ####[facility] LIMSCLIA [id number] [place] [address] [place] VOLUME (UL) OF DNA 500 uL Normal [facility] Comment on above: Order Comment: Speci men Type: BLOOD SPECIMENOrdering Facility: [facility] Address: [address] [place] [address] Performed By: #### N UCBLD ####[facility] LIMSCLIA [id number] [place] [address] [place] CNPNon 09-18-2024 CNPN Normal [facility] CNPNon 09-13-2024 CNPN Normal [facility] CNOVSPon 09-06-2024 CNOVSP Normal [facility] CNPNon 09-06-2024 CNPN Normal [facility] IMMUNOGLOBULINS,IGG,IGA,IGMo n 09-06-2024 IgA [Mass/Vol] 163 mg/dL Normal 70-400 [facility] Comment on above: Order Comment: Speci men Type: BLOOD SPECIMENOrdering Facility: [facility] Address: [address] [place] [address] Performed By: #### S ERIMM ####[facility] LABCLIA [id number] [place] [address] [place] IgG [Mass/Vol] 599 mg/dL Low 700-1600 [facility] Comment on above: Order Comment: Speci men Type: BLOOD SPECIMENOrdering Facility: [facility] Address: [address] [place] [address] Performed By: #### S ELVIAM ####[facility] LABCLIA [id number] [place] [address] [place] [facility] IgM [Mass/Vol] 387 mg/dL High 40-230 [facility] Comment on above: Order Comment: Speci men Type: BLOOD SPECIMENOrdering Facility: [facility] Address: [address] [place] [address] Performed By: #### S ERIMM ####[facility] LABCLIA [id number] [place] [address] [place] Laboratory - Chemistry and C hemistry - challengeon 09-06-2024 IgA [Mass/Vol] 163 mg/dL 70 - 400 mg/dL [facility] IgG [Mass/Vol] 599 mg/dL Low 700 - 1600 mg/dL [facility] IgM [Mass/Vol] 387 mg/dL High 40 - 230 mg/dL [facility] No Panel Informationon 09-06 Interpretation and review of laboratory results Abnormal [facility] CBC W Auto Differential pane l (Bld)on 08-29-2024 Basophils (Bld) [#/Vol] 0.06 10*3/uL Normal <0.11 [facility] Comment on above: Order Comment: Speci men Type: BLOOD SPECIMENOrdering Facility: [facility] Address: [address] [place] [address] Performed By: #### 5 7021-8 ####[facility] LABCLIA [id number] [place] [address] Basophils/100 WBC (Bld) 0.5 % Normal [facility] Comment on above: Order Comment: Speci men Type: BLOOD SPECIMENOrdering Facility: [facility] Address: [address] [place] [address] Performed By: #### 5 7021-8 ####[facility] LABCLIA [id number] [place] [address] Differential cell count method Nom (Bld) Auto Normal [facility] Comment on above: Order Comment: Speci men Type: BLOOD SPECIMENOrdering Facility: [facility] Address: [address] [place] [address] Performed By: #### 5 7021-8 ####[facility] LABCLIA [id number] [place] [address] Eosinophils (Bld) [#/Vol] 0.08 10*3/uL Normal <0.46 [facility] Comment on above: Order Comment: Speci men Type: BLOOD SPECIMENOrdering Facility: [facility] Address: [address] [place] [address] Performed By: #### 5 7021-8 ####[facility] LABCLIA [id number] [place] [address] Eosinophils/100 WBC (Bld) 0.6 % Normal [facility] Comment on above: Order Comment: Speci men Type: BLOOD SPECIMENOrdering Facility: [facility] Address: [address] [place] [address] Performed By: #### 5 7021-8 ####[facility] LABCLIA [id number] [place] [address] Erythrocyte distribution width (RBC) [Ratio] 16.0 % High 11.5-15.0 [facility] Comment on above: Order Comment: Speci men Type: BLOOD SPECIMENOrdering Facility: [facility] Address: [address] [place] [address] Performed By: #### 5 7021-8 ####[facility] LABCLIA [id number] [place] [address] Hematocrit (Bld) [Volume fraction] 42.9 % Normal 36.0-46.0 [facility] Comment on above: Order Comment: Speci men Type: BLOOD SPECIMENOrdering Facility: [facility] Address: [address] [place] [address] Performed By: #### 5 7021-8 ####[facility] LABCLIA [id number] [place] [address] Hemoglobin (Bld) [Mass/Vol] 13.8 g/dL Normal 11.5-15.5 [facility] Comment on above: Order Comment: Speci men Type: BLOOD SPECIMENOrdering Facility: [facility] Address: [address] [place] [address] Performed By: #### 5 7021-8 ####[facility] LABCLIA [id number] [place] [address] Immature granulocytes (Bld) [#/Vol] 0.23 10*3/uL High <0.10 [facility] Comment on above: Order Comment: Speci men Type: BLOOD SPECIMENOrdering Facility: [facility] Address: [address] [place] [address] Performed By: #### 5 7021-8 ####[facility] LABCLIA [id number] [place] [address] Immature granulocytes/100 WBC (Bld) 1.8 % Normal [facility] Comment on above: Order Comment: Speci men Type: BLOOD SPECIMENOrdering Facility: [facility] Address: [address] [place] [address] Performed By: #### 5 7021-8 ####[facility] LABCLIA [id number] [place] [address] Lymphocytes (Bld) [#/Vol] 2.07 10*3/uL Normal 1.00-4.00 [facility] Comment on above: Order Comment: Speci men Type: BLOOD SPECIMENOrdering Facility: [facility] Address: [address] [place] [address] Performed By: #### 5 7021-8 ####[facility] [facility] LABCLIA [id number] [place] [address] Lymphocytes/100 WBC (Bld) 15.8 % Normal [facility] Comment on above: Order Comment: Speci men Type: BLOOD SPECIMENOrdering Facility: [facility] Address: [address] [place] [address] Performed By: #### 5 7021-8 ####[facility] LABCLIA [id number] [place] [address] MCH (RBC) [Entitic mass] 30.2 pg Normal 26.0-34.0 [facility] Comment on above: Order Comment: Speci men Type: BLOOD SPECIMENOrdering Facility: [facility] Address: [address] [place] [address] Performed By: #### 5 7021-8 ####[facility] LABCLIA [id number] [place] [address] MCHC (RBC) [Mass/Vol] 32.2 g/dL Normal 30.5-36.0 [facility] Comment on above: Order Comment: Speci men Type: BLOOD SPECIMENOrdering Facility: [facility] Address: [address] [place] [address] Performed By: #### 5 7021-8 ####[facility] LABCLIA [id number] [place] [address] MCV (RBC) [Entitic vol] 93.9 fL Normal 80.0-100.0 [facility] Comment on above: Order Comment: Speci men Type: BLOOD SPECIMENOrdering Facility: [facility] Address: [address] [place] [address] Performed By: #### 5 7021-8 ####[facility] LABCLIA [id number] [place] [address] Monocytes (Bld) [#/Vol] 0.86 10*3/uL Normal <0.87 [facility] Comment on above: Order Comment: Speci men Type: BLOOD SPECIMENOrdering Facility: [facility] Address: [address] [place] [address] Performed By: #### 5 7021-8 ####[facility] LABCLIA [id number] [place] [address] Monocytes/100 WBC (Bld) 6.6 % Normal [facility] Comment on above: Order Comment: Speci men Type: BLOOD SPECIMENOrdering Facility: [facility] Address: [address] [place] [address] Performed By: #### 5 7021-8 ####[facility] LABCLIA [id number] [place] [address] Neutrophils (Bld) [#/Vol] 9.82 10*3/uL High 1.45-7.50 [facility] Comment on above: Order Comment: Speci men Type: BLOOD SPECIMENOrdering Facility: [facility] Address: [address] [place] [address] Performed By: #### 5 7021-8 ####[facility] LABCLIA [id number] [place] [address] Neutrophils/100 WBC (Bld) 74.7 % Normal [facility] Comment on above: Order Comment: Speci men Type: BLOOD SPECIMENOrdering Facility: [facility] Address: [address] [place] [address] Performed By: #### 5 7021-8 ####[facility] LABCLIA [id number] [place] [address] Nucleated RBC (Bld) [#/Vol] 10*3/uL Normal <0.01 [facility] Comment on above: Order Comment: Speci men Type: BLOOD SPECIMENOrdering Facility: [facility] Address: [address] [place] [address] Performed By: #### 5 7021-8 ####[facility] LABIA [id number] [place] [address] Nucleated RBC/100 WBC (Bld) [Ratio] 0.0 /100 WBC Normal [facility] Comment on above: Order Comment: Speci men Type: BLOOD SPECIMENOrdering Facility: [facility] Address: [address] [place] [address] Performed By: #### 5 7021-8 ####[facility] LABCLIA [id number] [place] [address] Platelet mean volume (Bld) [Entitic vol] 9.5 fL Normal 9.0-12.7 [facility] Comment on above: Order Comment: Speci men Type: BLOOD SPECIMENOrdering Facility: [facility] Address: [address] [place] [address] Performed By: #### 5 7021-8 ####[facility] LABCLIA [id number] [place] [address] Platelets (Bld) [#/Vol] 291 10*3/uL Normal 150-400 [facility] Comment on above: Order Comment: Speci men Type: BLOOD SPECIMENOrdering Facility: [facility] Address: [address] [place] [address] Performed By: #### 5 7021-8 ####[facility] LABCLIA [id number] [place] [address] RBC (Bld) [#/Vol] 4.57 10*6/uL Normal 3.90-5.20 [facility] Comment on above: Order Comment: Speci men Type: BLOOD SPECIMENOrdering Facility: [facility] Address: [address] [place] [address] Performed By: #### 5 7021-8 ####[facility] LABCLIA [id number] [place] [address] WBC (Bld) [#/Vol] 13.12 10*3/uL High 3.70-11.00 [facility] Comment on above: Order Comment: Speci men Type: BLOOD SPECIMENOrdering Facility: [facility] Address: [address] [place] [address] Performed By: #### 5 7021-8 ####[facility] LABCLIA [id number] [place] [address] Comprehensive metabolic 2000 panelon 08-29-2024 Albumin [Mass/Vol] 4.2 g/dL Normal 3.9-4.9 [facility] Comment on above: Order Comment: Speci men Type: BLOOD SPECIMENOrdering Facility: [facility] Address: [address] [place] [address] Performed By: #### 2 4323-8 ####[facility] LABCLIA [id number] [place] [address] ALP [Catalytic activity/Vol] 69 U/L Normal 34-123 [facility] Comment on above: Order Comment: Speci men Type: BLOOD SPECIMENOrdering Facility: [facility] Address: [address] [place] [address] Performed By: #### 2 4323-8 ####[facility] LABCLIA [id number] [place] [address] ALT [Catalytic activity/Vol] 38 U/L Normal 7-38 [facility] Comment on above: Order Comment: Speci men Type: BLOOD SPECIMENOrdering Facility: [facility] Address: [address] [place] [address] Performed By: #### 2 4323-8 ####[facility] LABCLIA [id number] [place] [address] Anion gap [Moles/Vol] 12 mmol/L Normal 8-15 [facility] Comment on above: Order Comment: Speci men Type: BLOOD SPECIMENOrdering Facility: [facility] Address: [address] [place] [address] Performed By: #### 2 4323-8 ####[facility] LABCLIA [id number] [place] [address] AST [Catalytic activity/Vol] 15 U/L Normal 13-35 [facility] Comment on above: Order Comment: Speci men Type: BLOOD SPECIMENOrdering Facility: [facility] Address: [address] [place] [address] Performed By: #### 2 4323-8 ####[facility] LABCLIA [id number] [place] [address] Bilirubin [Mass/Vol] 0.2 mg/dL Normal 0.2-1.3 [facility] Comment on above: Order Comment: Speci men Type: BLOOD SPECIMENOrdering Facility: [facility] Address: [address] [place] [address] Performed By: #### 2 4323-8 ####[facility] LABCLIA [id number] [place] [address] Calcium [Mass/Vol] 10.3 mg/dL High 8.5-10.2 [facility] Comment on above: Order Comment: Speci men Type: BLOOD SPECIMENOrdering Facility: [facility] Address: [address] [place] [address] Performed By: #### 2 4323-8 ####[facility] LABCLIA [id number] [place] [address] Chloride [Moles/Vol] 101 mmol/L Normal 98-107 [facility] Comment on above: Order Comment: Speci men Type: BLOOD SPECIMENOrdering Facility: [facility] Address: [address] [place] [address] Performed By: #### 2 4323-8 ####[facility] LABCLIA [id number] [place] [address] CO2 [Moles/Vol] 26 mmol/L Normal 22-30 [facility] Comment on above: Order Comment: Speci men Type: BLOOD SPECIMENOrdering Facility: [facility] Address: [address] [place], [place] [address] Performed By: #### 2 4323-8 ####[facility] LABCLIA [id number] [place] [address] Creatinine [Mass/Vol] 0.64 mg/dL Normal 0.58-0.96 [facility] Comment on above: Order Comment: Speci men Type: BLOOD SPECIMENOrdering Facility: [facility] Address: [address] [place], [place] [address] Performed By: #### 2 4323-8 ####[facility] LABCLIA [id number] [place] [address] Creatinine and Glomerular filtration rate.predicted panel (S/P/Bld) 113 mL/min/1.73m??? Normal >=60 [facility] Comment on above: Order Comment: Specgodwin men Type: BLOOD SPECIMENOrdering Facility: [facility] Address: [address] [place], [place] [address] Result Comment: Erin mated Glomerular Filtration Rate [...] actual GFR. Performed By: #### 2 4323-8 ####[facility] LABCLIA [id number] [place] [address] Glucose [Mass/Vol] 139 mg/dL High 74-99 [facility] Comment on above: Order Comment: Semaj moo Type: BLOOD SPECIMENOrdering Facility: [facility] Address: [address] [place], [place] [address] Result Comment: The [place] Diabetes Association (ADA) provides guidance for cutoff [...] Standards of Medical Care in Diabetes 2016, [place] [employer]. Diabetes Care. 2016.39(Suppl 1). Performed By: #### 2 4323-8 ####[facility] LABCLIA [id number] [place] [address] Potassium [Moles/Vol] 4.4 mmol/L Normal 3.7-5.1 [facility] Comment on above: Order Comment: Speci men Type: BLOOD SPECIMENOrdering Facility: [facility] Address: [address] [place] [address] Performed By: #### 2 4323-8 ####[facility] LABCLIA [id number] [place] [address] Protein [Mass/Vol] 7.1 g/dL Normal 6.3-8.0 [facility] Comment on above: Order Comment: Speci men Type: BLOOD SPECIMENOrdering Facility: [facility] Address: [address] [place] [address] Performed By: #### 2 4323-8 ####[facility] LABCLIA [id number] [place] [address] Sodium [Moles/Vol] 139 mmol/L Normal 136-144 [facility] Comment on above: Order Comment: Speci men Type: BLOOD SPECIMENOrdering Facility: [facility] Address: [address] [place] [address] Performed By: #### 2 4323-8 ####[facility] LABCLIA [id number] [place] [address] Urea nitrogen [Mass/Vol] 18 mg/dL Normal 7-21 [facility] Comment on above: Order Comment: Speci men Type: BLOOD SPECIMENOrdering Facility: [facility] Address: [address] [place] [address] Performed By: #### 2 4323-8 ####[facility] LABCLIA [id number] [place] [address] [facility] 20[facility] Ferritin [Mass/Vol] 43.1 ng/mL Normal 14.7-205.1 [facility] Comment on above: Order Comment: Speci men Type: BLOOD SPECIMENOrdering Facility: [facility] Address: [address] [place] [address] Performed By: #### 2 132-9, 2284-8, 2276-4, 19901-9 ####[facility] LABCLIA [id number] [place] [address] [place] Folate SerPl-mCncon 08-30-19 25 Folate [Mass/Vol] ng/mL Normal >4.7 [facility] Comment on above: Order Comment: Speci men Type: BLOOD SPECIMENOrdering Facility: [facility] Address: [address] [place] [address] Result Comment: A re sult of > 20 ng/mL is not necessarily indicative of a pathologic or treatable condition: it reflects a limitation of the test methodology.Assay reference range: 4.8 to 24.2 ng/mL. Suitable for detection of folate deficiency.Reference:Folate III (Folate III) [package insert V 1.0 [place]]. [facility], [place], [place]: March 2015. Performed By: #### 2 132-9, 2284-8, 2276-4, 35686-3 ####[facility] LABCLIA [id number] [place] [id number] [place] IgG SerPl-mCncon 08-29-2024 IgG [Mass/Vol] 729 mg/dL Normal 700-1600 [facility] Comment on above: Order Comment: Speci men Type: BLOOD SPECIMENOrdering Facility: [facility] Address: [address] [place] [address] Performed By: #### 2 465-3 ####[facility] LABIA [id number] [place] [id number] [place] Iron and Iron binding capaci ty panelon 08-29-2024 Iron [Mass/Vol] 80 ug/dL Normal 41-186 [facility] Comment on above: Order Comment: Speci men Type: BLOOD SPECIMENOrdering Facility: [facility] Address: [address] [place] [address] Performed By: #### 2 132-9, 2284-8, 2276-4, 48949-8 ####[facility] LABCLIA [id number] [address] [address] [place] Iron binding capacity [Mass/Vol] 416 ug/dL High 232-386 [facility] Comment on above: Order Comment: Speci men Type: BLOOD SPECIMENOrdering Facility: [facility] Address: [address] [place], [place] [address] Performed By: #### 2 132-9, 2284-8, 6-4, 84788-8 ####[facility] LABCLIA [id number] [address] [address] [place] Iron/TIBC [Molar ratio] 19.2 % Normal 15.0-57.0 [facility] Comment on above: Order Comment: Speci men Type: BLOOD SPECIMENOrdering Facility: [facility] Address: [address] [place], [place] [address] Performed By: #### 2 132-9, 2284-8, 6-4, 88244-5 ####[facility] LABCLIA [id number] [address] [address] [place] Vit B12 SerPl-mCncon 025 Cobalamin (Vitamin B12) [Mass/Vol] 555 pg/mL Normal 232-1245 [facility] Comment on above: Order Comment: Speci men Type: BLOOD SPECIMENOrdering Facility: [facility] Address: [address] [place] [address] Performed By: #### 2 132-9, 2284-8, 2276-4, 77920-3 ####[facility] LABCLIA [id number] [address] [address] [place] CNPNon 08-28-2024 CNPN Normal [facility] US Thyroid glandon [address] [address] Ultrasound Report Signed Patient: ARIADNA HALEY MR#: [id number] : 1980 Acct:[id number] Age/Sex: 43 / F ADM Date: 08/24/24 Loc: US Attending Dr: Gordo Barfield M.D. Ordering Physician: Gordo Barfield M.D. Date of Service: 08/24/24 Procedure(s): US thyroid Accession Number(s): [id number] cc: GAY ENCISO ; Gordo Barfield M.D. The [place] [id number] Patient Name: ARIADNA HALEY MRN: [id number] date: 1980 Sex: F Assigned Patient Location: US Current Patient Location: US Accession/Order Number: [id number] Exam Date: 08/24/2024 09:09 Report Date: 08/24/2024 [...] this was thought to be cystic. The chief business development officer today considered it solid and it was given TI-RADS 4 classification. No internal color flow is shown. Size has not significantly changed when measuring in a comparable manner. No other nodularity is seen. US/US thyroid IMPRESSION: SIMILAR SMALL LEFT THYROID NODULE. FOLLOW-UP IN ONE YEAR IS SUGGESTED. Impression dictated by: Simin Nelson M.D.08/24/2024 9:22 AM Dictation Location: [place] [address] Electronically authenticated by: [id number] Y Date: 08/24/2024 09:22 Dictated By: Simin Nelson M.D. Signed By: 08/24/24923 DD/ 1 TD/TT: Cardio Tech: [facility] Radiology, Radiologist, - 08/24/2024 The [place] [id number] Ultrasound Report Signed Patient: ARIADNA HALEY MR#: [id number] : 1980 Acct:[id number] Age/Sex: 43 / F ADM Date: 08/24/24 Loc: US Attending Dr: Gordo Barfield M.D. Ordering Physician: Gordo Barfield M.D. Date of Service: 08/24/24 Procedure(s): US thyroid Accession Number(s): [id number] cc: GAY ENCISO ; Gordo Barfield M.D. The [place] [id number] Patient Name: ARIADNA HALEY MRN: [facility]:[id number] date: 1980 Sex: F Assigned Patient Location: US Current Patient Location: US Accession/Order Number: [id number] Exam Date: 08/24/2024 09:09 Report Date: 08/24/2024 [...] this was thought to be cystic. The chief business development officer today considered it solid and it was given TI-RADS 4 classification. No internal color flow is shown. Size has not significantly changed when measuring in a comparable manner. No other nodularity is seen. US/US thyroid IMPRESSION: SIMILAR SMALL LEFT THYROID NODULE. FOLLOW-UP IN ONE YEAR IS SUGGESTED. Impression dictated by: Simin Nelson M.D.08/24/2024 9:22 AM Dictation Location: [place] [address] Electronically authenticated by: [id number] Y Date: 08/24/2024 09:22 Dictated By: Simin Nelson M.D. Signed By: 08/24/24923 DD/ 1 TD/TT: Cardio Tech: [facility] Radiology Study observation (narrative) [facility] US Thyroid glandOrdered By: Radiologist Radiology on 08-24-2024 [facility] Work Phone: CNPNon 08-08-2024 CNPN Normal [facility] HCG ( test) IAhollis varela Ql (U)Ordered By: Adolfo Kang on 07-19-2024 HCG ( test) Ql (U) Urine human chorionic gonadotropin (hCG) detection by immunoassay [facility] HCG,Urineon 07-19-2024 Beta HCG ( test) Ql (U) Negative Normal [facility] Comment on above: Result Comment: PERF ORMED BY: [place] [address] PATHOLOGIST BIOLOGICAL INSPECTOR HAYDEN LLAMAS M.D. Performed By: #### U HCG #### [address] CNOVon 07-12-2024 CNOV Normal [facility] CNPNon 07-09-2024 CNPN Normal [facility] 25(OH)D3 SerPl-ncon 2024 25-hydroxyvitamin D3 [Mass/Vol] 28.5 ng/mL Low 31.0-80.0 [facility] Comment on above: Order Comment: Speci men Type: BLOOD SPECIMENOrdering Facility: [facility] Address: [address] [place] [address] Result Comment: Clas sification of 25 [place] Vitamin D status:Deficiency/Insufficiency: < or = 30 ng/ml.Sufficiency/Optimal Levels: 31-80 ng/mLToxicity: > 100 ng/mL.Test performed by chemiluminescent immunoassay. Performed By: #### 1 989-3 ####[facility] LABCLIA [id number] [facility] [id number] [place] CBC panel Auto (Bld)on 06-30 Erythrocyte distribution width (RBC) [Ratio] 14.3 % Normal 11.5-15.0 [facility] Comment on above: Order Comment: Speci men Type: BLOOD SPECIMENOrdering Facility: [facility] Address: [address] [place] [address] Performed By: #### 5 8410-2 ####[facility]ENTER[facility] LABIA [id number] [place] [id number] [facility] [place] Hematocrit (Bld) [Volume fraction] 41.3 % Normal 36.0-46.0 [facility] Comment on above: Order Comment: Speci men Type: BLOOD SPECIMENOrdering Facility: [facility] Address: [address] [place] [address] Performed By: #### 5 8410-2 ####[facility]ENTERAnahi [facility] [id number] [place] [id number] [place] Hemoglobin (Bld) [Mass/Vol] 13.5 g/dL Normal 11.5-15.5 [facility] Comment on above: Order Comment: Speci men Type: BLOOD SPECIMENOrdering Facility: [facility] Address: [address] [place] [address] Performed By: #### 5 8410-2 ####[facility]ENTERAnahi [facility] [id number] [place] [id number] [place] MCH (RBC) [Entitic mass] 30.4 pg Normal 26.0-34.0 [facility] Comment on above: Order Comment: Speci men Type: BLOOD SPECIMENOrdering Facility: [facility] Address: [address] [place] [address] Performed By: #### 5 8410-2 ####[facility]ENTERT [facility] LABIA [id number] [place] [id number] [place] MCHC (RBC) [Mass/Vol] 32.7 g/dL Normal 30.5-36.0 [facility] Comment on above: Order Comment: Speci men Type: BLOOD SPECIMENOrdering Facility: [facility] Address: [address] [place] [address] Performed By: #### 5 8410-2 ####AMHABDIT [facility] LABCLIA [id number] [place] [id number] [place] MCV (RBC) [Entitic vol] 93.0 fL Normal 80.0-100.0 [facility] Comment on above: Order Comment: Speci men Type: BLOOD SPECIMENOrdering Facility: [facility] Address: [address] [place] [address] Performed By: #### 5 8410-2 ####AMHGALLUP [facility] CENTERAnahi [facility] LABIA [id number] [place] [id number] [place] Nucleated RBC (Bld) [#/Vol] 10*3/uL Normal <0.01 [facility] Comment on above: Order Comment: Speci men Type: BLOOD SPECIMENOrdering Facility: [facility] Address: [address] [place] [address] Performed By: #### 5 8410-2 ####[facility] LABIA [id number] [place] [id number] [place] Platelet mean volume (Bld) [Entitic vol] 9.8 fL Normal 9.0-12.7 [facility] Comment on above: Order Comment: Speci men Type: BLOOD SPECIMENOrdering Facility: [facility] Address: [address] [place] [address] Performed By: #### 5 8410-2 ####[facility] LABIA [id number] [place] [id number] [place] Platelets (Bld) [#/Vol] 341 10*3/uL Normal 150-400 [facility] Comment on above: Order Comment: Speci men Type: BLOOD SPECIMENOrdering Facility: [facility] Address: [address] [place] [address] [place] [address] Performed By: #### 5 8410-2 ####[facility] LABCLIA [id number] [place] [address] [place] RBC (Bld) [#/Vol] 4.44 10*6/uL Normal 3.90-5.20 [facility] Comment on above: Order Comment: Speci men Type: BLOOD SPECIMENOrdering Facility: [facility] Address: [facility] [place] [address] Performed By: #### 5 8410-2 ####[facility] LABIA [id number] [place] [address] [place] [facility] WBC (Bld) [#/Vol] 12.66 10*3/uL High 3.70-11.00 [facility] Comment on above: Order Comment: Speci men Type: BLOOD SPECIMENOrdering Facility: [facility] Address: [address] [place], [place] [address] Performed By: #### 5 8410-2 ####[facility] LABIA [id number] [place] [address] [place] CRP SerPl-mCncon 06-30-2024 CRP [Mass/Vol] 0.1 mg/dL Normal <0.9 [facility] Comment on above: Order Comment: Speci men Type: BLOOD SPECIMENOrdering Facility: [facility] Address: [facility] [place] [id number] Performed By: #### 1 988-5, 13387-1 ####[facility] LABIA [id number] [place] [address] [place] Comprehensive metabolic 2000 panelon 06-30-2024 Albumin [Mass/Vol] 4.0 g/dL Normal 3.9-4.9 [facility] Comment on above: Order Comment: Speci men Type: BLOOD SPECIMENOrdering Facility: [facility] Address: [address] [place] [address] Performed By: #### 1 988-5, 28433-9 ####AMHERSAnahi [facility] LABCLIA [id number] [place] [address] [place] ALP [Catalytic activity/Vol] 52 U/L Normal 34-123 [facility] Comment on above: Order Comment: Speci men Type: BLOOD SPECIMENOrdering Facility: [facility] Address: [address] [place] [address] Performed By: #### 1 988-5, 15085-0 ####AMHDOM [facility] LABCLIA [id number] [place] [address] [place] ALT [Catalytic activity/Vol] 26 U/L Normal 7-38 [facility] Comment on above: Order Comment: Speci men Type: BLOOD SPECIMENOrdering Facility: [facility] Address: [address] [place] [address] Performed By: #### 1 988-5, 01408-0 ####[facility] LABCLIA [id number] [place] [id number] [place] Anion gap [Moles/Vol] 10 mmol/L Normal 8-15 [facility] Comment on above: Order Comment: Speci men Type: BLOOD SPECIMENOrdering Facility: [facility] Address: [address] [place] [address] Performed By: #### 1 988-5, 36102-2 ####[facility] LABCLIA [id number] [place] [address] [place] AST [Catalytic activity/Vol] 12 U/L Low 13-35 [facility] Comment on above: Order Comment: Speci men Type: BLOOD SPECIMENOrdering Facility: [facility] Address: [address] [place], [place] [address] Performed By: #### 1 988-5, 61638-1 ####[facility] LABCLIA [id number] [place] [address] [place] Bilirubin [Mass/Vol] 0.3 mg/dL Normal 0.2-1.3 [facility] Comment on above: Order Comment: Speci men Type: BLOOD SPECIMENOrdering Facility: [facility] Address: [address] [id number] Performed By: #### 1 988-5, ####[facility] LABCLIA [id number] [place] [address] [place] Calcium [Mass/Vol] 9.5 mg/dL Normal 8.5-10.2 [facility] Comment on above: Order Comment: Speci men Type: BLOOD SPECIMENOrdering Facility: [facility] Address: [address] [place], [place] [address] Performed By: #### 1 988-5, ####[facility] LABCLIA [id number] [place] [address] [place] Chloride [Moles/Vol] 103 mmol/L Normal 98-107 [facility] Comment on above: Order Comment: Speci men Type: BLOOD SPECIMENOrdering Facility: [facility] Address: [address] [place], [place] [address] Performed By: #### 1 988-5, ####[facility] LABCLIA [id number] [place] [address] [place] CO2 [Moles/Vol] 27 mmol/L Normal 22-30 [facility] Comment on above: Order Comment: Speci men Type: BLOOD SPECIMENOrdering Facility: [facility] Address: [address] [id number] Performed By: #### 1 988-5, ####[facility] LABCLIA [id number] [place] [address] [place] Creatinine [Mass/Vol] 0.78 mg/dL Normal 0.58-0.96 [facility] Comment on above: Order Comment: Speci men Type: BLOOD SPECIMENOrdering Facility: [facility] Address: [address] [id number] Performed By: #### 1 988-5, ####[facility] LABCLIA [id number] [place] [address] [place] Creatinine and Glomerular filtration rate.predicted panel (S/P/Bld) 97 mL/min/1.73m??? Normal >=60 [facility] Comment on above: Order Comment: Semaj cortés Type: BLOOD SPECIMENOrdering Facility: [facility] Address: [address] [place] [address] Result Comment: Erin mated Glomerular Filtration Rate [...] actual GFR. Performed By: #### 1 988-5, 78698-3 ####[facility] LABIA [id number] [place] [id number] [place] Glucose [Mass/Vol] 116 mg/dL High 74-99 [facility] Comment on above: Order Comment: Semaj cortés Type: BLOOD SPECIMENOrdering Facility: [facility] Address: [address] [place] [address] Result Comment: The [place] Diabetes Association (ADA) provides guidance for cutoff [...] Standards of Medical Care in Diabetes 2016, [place] [employer]. Diabetes Care. 2016.39(Suppl 1). Performed By: #### 1 988-5, 40569-9 ####[facility] LABCLIA [id number] [place] [address] [place] Potassium [Moles/Vol] 3.8 mmol/L Normal 3.7-5.1 [facility] Comment on above: Order Comment: Speci men Type: BLOOD SPECIMENOrdering Facility: [facility] Address: [address] [place] [address] Performed By: #### 1 988-5, ####[facility] LABCLIA [id number] [place] [id number] [place] Protein [Mass/Vol] 7.6 g/dL Normal 6.3-8.0 [facility] Comment on above: Order Comment: Speci men Type: BLOOD SPECIMENOrdering Facility: [facility] Address: [address] [place] [address] Performed By: #### 1 988-5, 09717-9 ####[facility] LABIA [id number] [place] [id number] [place] Sodium [Moles/Vol] 140 mmol/L Normal 136-144 [facility] Comment on above: Order Comment: Speci men Type: BLOOD SPECIMENOrdering Facility: [facility] Address: [address] [place] [address] Performed By: #### 1 988-5, 46094-7 ####[facility] LABIA [id number] [place] [id number] [place] Urea nitrogen [Mass/Vol] 18 mg/dL Normal 7-21 [facility] Comment on above: Order Comment: Speci men Type: BLOOD SPECIMENOrdering Facility: [facility] Address: [address] [place] [address] Performed By: #### 1 988-5, 30971-9 ####[facility] LABIA [id number] [place] [id number] [place] ESR Westergren method (Bld) [Velocity]on 06-30-2024 ESR (Bld) [Velocity] 28 mm/h High 0-20 [facility] Comment on above: Order Comment: Speci men Type: BLOOD SPECIMENOrdering Facility: [facility] Address: [address] [place] [address] Performed By: #### 4 537-7 ####[facility] LABCLIA [id number] [place] [address] [place] CNPNon 06-16-2024 CNPN Normal [facility] ALLIED HEALTHon 06-13-2024 ALLIED HEALTH Normal [facility] CBC W Auto Differential pane l (Bld)on 06-13-2024 Basophils (Bld) [#/Vol] 0.10 10*3/uL [facility] Basophils/100 WBC (Bld) 0.7 % [facility] Differential cell count method Nom (Bld) Auto [facility] Eosinophils (Bld) [#/Vol] 0.15 10*3/uL [facility] Eosinophils/100 WBC (Bld) 1.1 % [facility] Erythrocyte distribution width (RBC) [Ratio] 14.2 % 11.5 - 15.0 % [facility] Hematocrit (Bld) [Volume fraction] 39.0 % 36.0 - 46.0 % [facility] Hemoglobin (Bld) [Mass/Vol] 13.0 g/dL 11.5 - 15.5 g/dL [facility] Immature granulocytes (Bld) [#/Vol] 0.21 10*3/uL High [facility] Immature granulocytes/100 WBC (Bld) 1.5 % [facility] Interpretation and review of laboratory results Abnormal [facility] Lymphocytes (Bld) [#/Vol] 2.16 10*3/uL [facility] Lymphocytes/100 WBC (Bld) 15.4 % [facility] MCH (RBC) [Entitic mass] 30.5 pg 26.0 - 34.0 pg [facility] MCHC (RBC) [Mass/Vol] 33.3 g/dL 30.5 - 36.0 g/dL [facility] MCV (RBC) [Entitic vol] 91.5 fL 80.0 - 100.0 fL [facility] Monocytes (Bld) [#/Vol] 0.79 10*3/uL [facility] Monocytes/100 WBC (Bld) 5.6 % [facility] Neutrophils (Bld) [#/Vol] 10.59 10*3/uL High [facility] Neutrophils/100 WBC (Bld) 75.7 % [facility] Nucleated RBC (Bld) [#/Vol] NINF [facility] Nucleated RBC/100 WBC (Bld) [Ratio] 0.0 % /100 WBC [facility] Platelet mean volume (Bld) [Entitic vol] 9.9 fL 9.0 - 12.7 fL [facility] Platelets (Bld) [#/Vol] 327 10*3/uL [facility] RBC (Bld) [#/Vol] 4.26 10*6/uL 3.90 - 5.2 0 m/uL [facility] WBC (Bld) [#/Vol] 14.00 10*3/uL High [facility] Basophils (Bld) [#/Vol] 0.10 10*3/uL Normal <0.11 [facility] Comment on above: Order Comment: Speci men Type: BLOOD SPECIMENOrdering Facility: [facility] Address: [address] [place] [address] Performed By: #### 5 7021-8 ####[facility] LABCLIA [id number] [place] [address] Basophils/100 WBC (Bld) 0.7 % Normal [facility] Comment on above: Order Comment: Speci men Type: BLOOD SPECIMENOrdering Facility: [facility] Address: [address] [place] [address] Performed By: #### 5 7021-8 ####[facility] LABCLIA [id number] [place] [address] Differential cell count method Nom (Bld) Auto Normal [facility] Comment on above: Order Comment: Speci men Type: BLOOD SPECIMENOrdering Facility: [facility] Address: [address] [place] [address] Performed By: #### 5 7021-8 ####[facility] LABCLIA [id number] [place] [address] Eosinophils (Bld) [#/Vol] 0.15 10*3/uL Normal <0.46 [facility] Comment on above: Order Comment: Speci men Type: BLOOD SPECIMENOrdering Facility: [facility] Address: [address] [place] [address] Performed By: #### 5 7021-8 ####[facility] LABCLIA [id number] [place] [address] Eosinophils/100 WBC (Bld) 1.1 % Normal [facility] Comment on above: Order Comment: Speci men Type: BLOOD SPECIMENOrdering Facility: [facility] Address: [address] [place] [address] Performed By: #### 5 7021-8 ####[facility] LABCLIA [id number] [place] [address] Erythrocyte distribution width (RBC) [Ratio] 14.2 % Normal 11.5-15.0 [facility] Comment on above: Order Comment: Speci men Type: BLOOD SPECIMENOrdering Facility: [facility] Address: [address] [place] [address] Performed By: #### 5 7021-8 ####[facility] LABCLIA [id number] [place] [address] Hematocrit (Bld) [Volume fraction] 39.0 % Normal 36.0-46.0 [facility] Comment on above: Order Comment: Speci men Type: BLOOD SPECIMENOrdering Facility: [facility] Address: [address] [place] [address] Performed By: #### 5 7021-8 ####[facility] LABCLIA [id number] [place] [address] Hemoglobin (Bld) [Mass/Vol] 13.0 g/dL Normal 11.5-15.5 [facility] Comment on above: Order Comment: Speci men Type: BLOOD SPECIMENOrdering Facility: [facility] Address: [address] [place] [address] Performed By: #### 5 7021-8 ####[facility] LABCLIA [id number] [place] [address] Immature granulocytes (Bld) [#/Vol] 0.21 10*3/uL High <0.10 [facility] Comment on above: Order Comment: Speci men Type: BLOOD SPECIMENOrdering Facility: [facility] Address: [address] [place] [address] Performed By: #### 5 7021-8 ####[facility] LABCLIA [id number] [place] [address] Immature granulocytes/100 WBC (Bld) 1.5 % Normal [facility] Comment on above: Order Comment: Speci men Type: BLOOD SPECIMENOrdering Facility: [facility] Address: [address] [place] [address] Performed By: #### 5 7021-8 ####[facility] LABCLIA [id number] [place] [address] Lymphocytes (Bld) [#/Vol] 2.16 10*3/uL Normal 1.00-4.00 [facility] Comment on above: Order Comment: Speci men Type: BLOOD SPECIMENOrdering Facility: [facility] Address: [address] [place] [address] Performed By: #### 5 7021-8 ####[facility] LABCLIA [id number] [place] [address] Lymphocytes/100 WBC (Bld) 15.4 % Normal [facility] Comment on above: Order Comment: Speci men Type: BLOOD SPECIMENOrdering Facility: [facility] Address: [address] [place] [address] Performed By: #### 5 7021-8 ####[facility] LABCLIA [id number] [place] [address] MCH (RBC) [Entitic mass] 30.5 pg Normal 26.0-34.0 [facility] Comment on above: Order Comment: Speci men Type: BLOOD SPECIMENOrdering Facility: [facility] Address: [address] [place] [address] Performed By: #### 5 7021-8 ####[facility] LABCLIA [id number] [place] [address] MCHC (RBC) [Mass/Vol] 33.3 g/dL Normal 30.5-36.0 [facility] Comment on above: Order Comment: Speci men Type: BLOOD SPECIMENOrdering Facility: [facility] Address: [address] [place] [address] Performed By: #### 5 7021-8 ####[facility] LABCLIA [id number] [place] [address] MCV (RBC) [Entitic vol] 91.5 fL Normal 80.0-100.0 [facility] Comment on above: Order Comment: Speci men Type: BLOOD SPECIMENOrdering Facility: [facility] Address: [address] [place] [address] Performed By: #### 5 7021-8 ####[facility] LABCLIA [id number] [place] [address] Monocytes (Bld) [#/Vol] 0.79 10*3/uL Normal <0.87 [facility] Comment on above: Order Comment: Speci men Type: BLOOD SPECIMENOrdering Facility: [facility] Address: [address] [place] [address] Performed By: #### 5 7021-8 ####[facility] LABCLIA [id number] [place] [address] Monocytes/100 WBC (Bld) 5.6 % Normal [facility] Comment on above: Order Comment: Speci men Type: BLOOD SPECIMENOrdering Facility: [facility] Address: [address] [place] [address] Performed By: #### 5 7021-8 ####[facility] LABCLIA [id number] [place] [address] Neutrophils (Bld) [#/Vol] 10.59 10*3/uL High 1.45-7.50 [facility] Comment on above: Order Comment: Speci men Type: BLOOD SPECIMENOrdering Facility: [facility] Address: [address] [place] [address] Performed By: #### 5 7021-8 ####[facility] LABCLIA [id number] [place] [address] Neutrophils/100 WBC (Bld) 75.7 % Normal [facility] Comment on above: Order Comment: Speci men Type: BLOOD SPECIMENOrdering Facility: [facility] Address: [address] [place] [address] Performed By: #### 5 7021-8 ####[facility] LABCLIA [id number] [place] [address] Nucleated RBC (Bld) [#/Vol] 10*3/uL Normal <0.01 [facility] Comment on above: Order Comment: Speci men Type: BLOOD SPECIMENOrdering Facility: [facility] Address: [address] [place] [address] Performed By: #### 5 7021-8 ####[facility] LABCLIA [id number] [place] [address] Nucleated RBC/100 WBC (Bld) [Ratio] 0.0 /100 WBC Normal [facility] Comment on above: Order Comment: Speci men Type: BLOOD SPECIMENOrdering Facility: [facility] Address: [address] [place] [address] Performed By: #### 5 7021-8 ####[facility] LABCLIA [id number] [place] [address] Platelet mean volume (Bld) [Entitic vol] 9.9 fL Normal 9.0-12.7 [facility] Comment on above: Order Comment: Speci men Type: BLOOD SPECIMENOrdering Facility: [facility] Address: [address] [place] [address] Performed By: #### 5 7021-8 ####[facility] LABCLIA [id number] [place] [address] Platelets (Bld) [#/Vol] 327 10*3/uL Normal 150-400 [facility] Comment on above: Order Comment: Speci men Type: BLOOD SPECIMENOrdering Facility: [facility] Address: [address] [place] [address] Performed By: #### 5 7021-8 ####[facility] LABCLIA [id number] [place] [address] RBC (Bld) [#/Vol] 4.26 10*6/uL Normal 3.90-5.20 [facility] Comment on above: Order Comment: Speci men Type: BLOOD SPECIMENOrdering Facility: [facility] Address: [address] [place] [address] Performed By: #### 5 7021-8 ####[facility] LABIA [id number] [place] [address] WBC (Bld) [#/Vol] 14.00 10*3/uL High 3.70-11.00 [facility] Comment on above: Order Comment: Speci men Type: BLOOD SPECIMENOrdering Facility: [facility] Address: [address] [place] [address] Performed By: #### 5 7021-8 ####[facility] LABIA [id number] [place] [address] CNOVSPon 06-13-2024 CNOVSP Normal [facility] metabolic 2000 panelOrdered By: Josse Merlos on 06-13-2024 Albumin [Mass/Vol] 3.9 g/dL 3.9 - 4.9 g/dL [facility] ALP [Catalytic activity/Vol] 73 U/L 34 - 123 U/L [facility] ALT [Catalytic activity/Vol] 24 U/L 7 - 38 U/L [facility] Anion gap [Moles/Vol] 15 mmol/L 8 - 15 mmol/L [facility] AST [Catalytic activity/Vol] 12 U/L Low 13 - 35 U/L [facility] Bilirubin [Mass/Vol] mg/dL Low 0.2 - 1 .3 mg/dL [facility] Calcium [Mass/Vol] 9.2 mg/dL 8.5 - 10. 2 mg/dL [facility] Chloride [Moles/Vol] 104 mmol/L 98 - 10 7 mmol/L [facility] CO2 [Moles/Vol] 19 mmol/L Low 22 - 30 mmol/L [facility] Creatinine [Mass/Vol] 0.58 mg/dL 0.58 - 0.96 mg/dL [facility] GFR/1.73 sq M.predicted among non-blacks MDRD (S/P/Bld) [Vol rate/Area] 115 mL/min/{1.73_m2} - PINF [facility] Comment on above: Estimated [...] 163 mg/dL High 74 - 99 mg/dL [facility] Comment on above: The [place] Diabete s Association (ADA) provides guidance for [...] Standards of Medical Care in Diabetes 2016, [place] [employer]. Diabetes Care. 2016.39(Suppl 1). Interpretation and review of laboratory results Abnormal [facility] Potassium [Moles/Vol] 3.9 mmol/L 3.7 - 5.1 mmol/L [facility] Protein [Mass/Vol] 6.8 g/dL 6.3 - 8.0 g/dL [facility] Sodium [Moles/Vol] 138 mmol/L 136 - 144 mmol/L [facility] Urea nitrogen [Mass/Vol] 13 mg/dL 7 - 21 mg/dL [facility] Comprehensive metabolic 2000 panelon 06-13-2024 Albumin [Mass/Vol] 3.9 g/dL Normal 3.9-4.9 [facility] Comment on above: Order Comment: Speci men Type: BLOOD SPECIMENOrdering Facility: [facility] Address: [address] [place] [address] Performed By: #### 2 4323-8 ####[facility] LABCLIA [id number] [place] [address] ALP [Catalytic activity/Vol] 73 U/L Normal 34-123 [facility] Comment on above: Order Comment: Speci men Type: BLOOD SPECIMENOrdering Facility: [facility] Address: [address] [place] [address] Performed By: #### 2 4323-8 ####[facility] LABCLIA [id number] [place] [address] ALT [Catalytic activity/Vol] 24 U/L Normal 7-38 [facility] Comment on above: Order Comment: Speci men Type: BLOOD SPECIMENOrdering Facility: [facility] Address: [address] [place] [address] Performed By: #### 2 4323-8 ####[facility] LABCLIA [id number] [place] [address] Anion gap [Moles/Vol] 15 mmol/L Normal 8-15 [facility] Comment on above: Order Comment: Speci men Type: BLOOD SPECIMENOrdering Facility: [facility] Address: [address] [place] [address] Performed By: #### 2 4323-8 ####[facility] LABCLIA [id number] [place] [address] AST [Catalytic activity/Vol] 12 U/L Low 13-35 [facility] Comment on above: Order Comment: Speci men Type: BLOOD SPECIMENOrdering Facility: [facility] Address: [address] [place] [address] Performed By: #### 2 4323-8 ####[facility] LABCLIA [id number] [place] [address] Bilirubin [Mass/Vol] mg/dL Low 0.2-1.3 [facility] Comment on above: Order Comment: Speci men Type: BLOOD SPECIMENOrdering Facility: [facility] Address: [address] [place] [address] Performed By: #### 2 4323-8 ####[facility] LABCLIA [id number] [place] [address] Calcium [Mass/Vol] 9.2 mg/dL Normal 8.5-10.2 [facility] Comment on above: Order Comment: Speci men Type: BLOOD SPECIMENOrdering Facility: [facility] Address: [address] [place] [address] Performed By: #### 2 4323-8 ####[facility] LABCLIA [id number] [place] [address] Chloride [Moles/Vol] 104 mmol/L Normal 98-107 [facility] Comment on above: Order Comment: Speci men Type: BLOOD SPECIMENOrdering Facility: [facility] Address: [address] [place] [address] Performed By: #### 2 4323-8 ####[facility] LABCLIA [id number] [place] [address] CO2 [Moles/Vol] 19 mmol/L Low 22-30 [facility] Comment on above: Order Comment: Speci men Type: BLOOD SPECIMENOrdering Facility: [facility] Address: [address] [place] [address] Performed By: #### 2 4323-8 ####[facility] LABCLIA [id number] [place] [address] Creatinine [Mass/Vol] 0.58 mg/dL Normal 0.58-0.96 [facility] Comment on above: Order Comment: Semaj cortés Type: BLOOD SPECIMENOrdering Facility: [facility] Address: [address] [place], [place] [address] Performed By: #### 2 4323-8 ####[facility] LABCLIA [id number] [place] [address] Creatinine and Glomerular filtration rate.predicted panel (S/P/Bld) 115 mL/min/1.73m??? Normal >=60 [facility] Comment on above: Order Comment: Semaj cortés Type: BLOOD SPECIMENOrdering Facility: [facility] Address: [address] [place] [address] Result Comment: Erin mated Glomerular Filtration Rate [...] actual GFR. Performed By: #### 2 4323-8 ####[facility] LABCLIA [id number] [place] [address] Glucose [Mass/Vol] 163 mg/dL High 74-99 [facility] Comment on above: Order Comment: Semaj cortés Type: BLOOD SPECIMENOrdering Facility: [facility] Address: [address] [place], [place] [address] Result Comment: The [place] Diabetes Association (ADA) provides guidance for cutoff [...] Standards of Medical Care in Diabetes 2016, [place] [employer]. Diabetes Care. 2016.39(Suppl 1). Performed By: #### 2 4323-8 ####[facility] LABCLIA [id number] [place] [address] Potassium [Moles/Vol] 3.9 mmol/L Normal 3.7-5.1 [facility] Comment on above: Order Comment: Speci men Type: BLOOD SPECIMENOrdering Facility: [facility] Address: [address] [place] [address] Performed By: #### 2 4323-8 ####[facility] LABCLIA [id number] [place] [address] Protein [Mass/Vol] 6.8 g/dL Normal 6.3-8.0 [facility] Comment on above: Order Comment: Speci men Type: BLOOD SPECIMENOrdering Facility: [facility] Address: [address] [place] [address] Performed By: #### 2 4323-8 ####[facility] LABCLIA [id number] [place] [address] Sodium [Moles/Vol] 138 mmol/L Normal 136-144 [facility] Comment on above: Order Comment: Speci men Type: BLOOD SPECIMENOrdering Facility: [facility] Address: [address] [place] [address] Performed By: #### 2 4323-8 ####[facility] LABCLIA [id number] [place] [address] Urea nitrogen [Mass/Vol] 13 mg/dL Normal 7-21 [facility] Comment on above: Order Comment: Speci men Type: BLOOD SPECIMENOrdering Facility: [facility] [facility] Address: [address] [place] [address] Performed By: #### 2 4323-8 ####[facility] LABCLIA [id number] [place] [address] ESR Westergren method (Bld) [Velocity]on 06-13-2024 ESR (Bld) [Velocity] 30 mm/h High [facility] Interpretation and review of laboratory results Abnormal [facility] ESR (Bld) [Velocity] 30 mm/h High 0-20 [facility] Comment on above: Order Comment: Speci men Type: BLOOD SPECIMENOrdering Facility: [facility] Address: [address] [place] [address] Performed By: #### 4 537-7 ####[facility] LABCLIA [id number] [place] [address] [place] FERRITINon 06-13-2024 Ferritin [Mass/Vol] 30.9 ng/mL 14.7 - 2 05.1 ng/mL [facility] FOLATE, SERUMon 06-13-2024 Folate [Mass/Vol] 19.6 ng/mL 4.7 - PINF ng/mL [facility] Ferritin SerPl-mCncon 2024 Ferritin [Mass/Vol] 30.9 ng/mL Normal 14.7-205.1 [facility] Comment on above: Order Comment: Speci men Type: BLOOD SPECIMENOrdering Facility: [facility] Address: [address] [place] [address] Performed By: #### 2 284-8, 2276-4, 00851-8, 21319 ####[facility] LABCLIA [id number] [place] [address] [place] Ferritin [Mass/Vol]on 2024 Interpretation and review of laboratory results Normal [facility] Folate SerPl-mCncon 06-13-19 25 Folate [Mass/Vol] 19.6 ng/mL Normal >4.7 [facility] Comment on above: Order Comment: Speci men Type: BLOOD SPECIMENOrdering Facility: [facility] Address: [address] [place] [address] Performed By: #### 2 284-8, 2276-4, 23270-6, 2132-01 ####[facility] LABCLIA [id number] [place] [address] [place] IMMUNOGLOBULINS,IGG,IGA,IGMo n 06-13-2024 IgA [Mass/Vol] 170 mg/dL Normal 70-400 [facility] Comment on above: Order Comment: Speci men Type: BLOOD SPECIMENOrdering Facility: [facility] Address: [address] [place] [address] Performed By: #### S ERIMM ####[facility] LABCLIA [id number] [place] [address] [place] IgG [Mass/Vol] 663 mg/dL Low 700-1600 [facility] Comment on above: Order Comment: Speci men Type: BLOOD SPECIMENOrdering Facility: [facility] Address: [address] [place] [address] Performed By: #### S ERIMM ####[facility] LABCLIA [id number] [place] [address] [place] IgM [Mass/Vol] 376 mg/dL High 40-230 [facility] Comment on above: Order Comment: Speci men Type: BLOOD SPECIMENOrdering Facility: [facility] Address: [address] [place] [address] Performed By: #### S ERIMM ####[facility] LABCLIA [id number] [place] [address] [place] Iron and Iron binding capaci ty panelon 06-13-2024 Iron [Mass/Vol] 64 ug/dL Normal 41-186 [facility] Comment on above: Order Comment: Speci men Type: BLOOD SPECIMENOrdering Facility: [facility] Address: [address] [place] [address] Performed By: #### 2 284-8, 2276-4, 54781-7, 2132-01 ####[facility] LABCLIA [id number] [place] [address] [place] Iron binding capacity [Mass/Vol] 409 ug/dL High 232-386 [facility] Comment on above: Order Comment: Speci men Type: BLOOD SPECIMENOrdering Facility: [facility] Address: [address] [place], [place] [address] Performed By: #### 2 284-8, 2276-4, 41975-6, 9 ####[facility] LABCLIA [id number] [place] [address] [place] Iron/TIBC [Molar ratio] 15.6 % Normal 15.0-57.0 [facility] Comment on above: Order Comment: Speci men Type: BLOOD SPECIMENOrdering Facility: [facility] Address: [address] [place] [address] Performed By: #### 2 284-8, 6-4, 29779-7, 2132-01 ####[facility] LABCLIA [id number] [place] [address] [place] Laboratory - Chemistry and C hemistry - challengeon 06-13-2024 IgA [Mass/Vol] 170 mg/dL 70 - 400 mg/dL [facility] IgG [Mass/Vol] 663 mg/dL Low 700 - 1600 mg/dL [facility] IgM [Mass/Vol] 376 mg/dL High 40 - 230 mg/dL [facility] No Panel Informationon 06-13 Interpretation and review of laboratory results Normal [facility] Interpretation and review of laboratory results Abnormal [facility] VITAMIN B12on 06-13-2024 Cobalamin (Vitamin B12) [Mass/Vol] 516 pg/mL 232 - 1245 pg/mL [facility] Vit B12 SerPl-mCncon 025 Cobalamin (Vitamin B12) [Mass/Vol] 516 pg/mL Normal 232-1245 [facility] Comment on above: Order Comment: Speci men Type: BLOOD SPECIMENOrdering Facility: [facility] Address: [address] [place] [address] Performed By: #### 2 284-8, 2276-4, 46603-9, 2132-01 ####[facility] LABLORETAIA [id number] [place] [address] [place] CNPNon 06-12-2024 CNPN Normal [facility] IGP,APTIMA HPV,AGE GDLNon AGE GDLN ACOG TESTING Note . [facility] Comment on above: TESTS RESULT FLAG U NITS REF RANGE LAB Clinician Provided Cytology Information Source.............Cervix;Endocervix No. of containers..01 ThinPrep Vial Age Algo ACOG Vicky... 30 FLAG LEGEND: L-Low Normal,H-High Normal,LL-Alert Low,HH-Alert High <-Panic Low,>-Panic High,A-Abnormal,AA-Critical Abnormal Performed at: 01 =G [facility] [place] [address] Aparna Solorzano MD, HPV APTIMA Negative Negative [facility] Comment on above: This nucleic acid am plification test detects fourteen high- risk HPV types (16,18,31,33,35,39,45,51,52,56,58,59,66,68) without differentiation. Performed at: =G [facility] [id number] Art Preparator: Aparna Solorzano MD, Phone: [phone] Performed at: - [facility] [address] [facility], [place] [id number] Art Preparator: Aparna Solorzano MD, Phone: [phone] IGP, APTIMA HPV, RFX 16/18,45 Note . [facility] Comment on above: TESTS RESULT FLAG UN ITS REF RANGE LAB DIAGNOSIS: 02 NEGATIVE FOR INTRAEPITHELIAL LESION OR MALIGNANCY. Specimen adequacy: 02 Satisfactory for evaluation. Endocervical and/or squamous metaplastic cells (endocervical component) are present. Performed by: David Kam, Branch Service Associate (ASC) . 02 Note: Note 02 The [...] High <-Panic Low,>-Panic High,A-Abnormal,AA-Critical Abnormal Performed at: [facility] [address] [place] [address] Aparna Solorzano MD, BRUSH-SPATULA CERVIX ENDOCERVIX [facility] CBC W Auto Differential pane l (Bld)on 05-19-2024 Basophils (Bld) [#/Vol] 0.08 10*3/uL [facility] Basophils/100 WBC (Bld) 0.6 % [facility] Differential cell count method Nom (Bld) Auto [facility] Eosinophils (Bld) [#/Vol] 0.17 10*3/uL [facility] Eosinophils/100 WBC (Bld) 1.2 % [facility] Erythrocyte distribution width (RBC) [Ratio] 14.3 % 11.5 - 15.0 % [facility] Hematocrit (Bld) [Volume fraction] 39.8 % 36.0 - 46.0 % [facility] Hemoglobin (Bld) [Mass/Vol] 13.4 g/dL 11.5 - 15.5 g/dL [facility] Immature granulocytes (Bld) [#/Vol] 0.13 10*3/uL High [facility] Immature granulocytes/100 WBC (Bld) 0.9 % [facility] Interpretation and review of laboratory results Abnormal [facility] Lymphocytes (Bld) [#/Vol] 2.96 10*3/uL [facility] Lymphocytes/100 WBC (Bld) 20.5 % [facility] MCH (RBC) [Entitic mass] 31.1 pg 26.0 - 34.0 pg [facility] MCHC (RBC) [Mass/Vol] 33.7 g/dL 30.5 - 36.0 g/dL [facility] MCV (RBC) [Entitic vol] 92.3 fL 80.0 - 100.0 fL [facility] Monocytes (Bld) [#/Vol] 0.87 10*3/uL High [facility] Monocytes/100 WBC (Bld) 6.0 % [facility] Neutrophils (Bld) [#/Vol] 10.20 10*3/uL High [facility] Neutrophils/100 WBC (Bld) 70.8 % [facility] Nucleated RBC [facility]Bld) [#/Vol] [facility] Nucleated RBC/100 WBC (Bld) [Ratio] 0.0 % /100 WBC [facility] Platelet mean volume (Bld) [Entitic vol] 10.1 fL 9.0 - 12.7 fL [facility] Platelets (Bld) [#/Vol] 303 10*3/uL [facility] RBC (Bld) [#/Vol] 4.31 10*6/uL 3.90 - 5.2 0 m/uL [facility] WBC (Bld) [#/Vol] 14.41 10*3/uL High [facility] Basophils (Bld) [#/Vol] 0.08 10*3/uL Normal <0.11 [facility] Comment on above: Order Comment: Speci men Type: BLOOD SPECIMENOrdering Facility: [facility] Address: [address] [place] [address] Performed By: #### 5 7021-8 ####[facility] LABCLIA [id number] [place] [address] Basophils/100 WBC (Bld) 0.6 % Normal [facility] Comment on above: Order Comment: Speci men Type: BLOOD SPECIMENOrdering Facility: [facility] Address: [address] [place] [address] Performed By: #### 5 7021-8 ####[facility] LABCLIA [id number] [place] [address] Differential cell count method Nom (Bld) Auto Normal [facility] Comment on above: Order Comment: Speci men Type: BLOOD SPECIMENOrdering Facility: [facility] Address: [address] [place] [address] Performed By: #### 5 7021-8 ####[facility] LABCLIA [id number] [place] [address] Eosinophils (Bld) [#/Vol] 0.17 10*3/uL Normal <0.46 [facility] Comment on above: Order Comment: Speci men Type: BLOOD SPECIMENOrdering Facility: [facility] Address: [address] [place] [address] Performed By: #### 5 7021-8 ####[facility] LABCLIA [id number] [place] [address] Eosinophils/100 WBC (Bld) 1.2 % Normal [facility] Comment on above: Order Comment: Speci men Type: BLOOD SPECIMENOrdering Facility: [facility] Address: [address] [place] [address] Performed By: #### 5 7021-8 ####[facility] LABCLIA [id number] [place] [address] Erythrocyte distribution width (RBC) [Ratio] 14.3 % Normal 11.5-15.0 [facility] Comment on above: Order Comment: Speci men Type: BLOOD SPECIMENOrdering Facility: [facility] Address: [address] [place] [address] Performed By: #### 5 7021-8 ####[facility] LABCLIA [id number] [place] [address] Hematocrit (Bld) [Volume fraction] 39.8 % Normal 36.0-46.0 [facility] Comment on above: Order Comment: Speci men Type: BLOOD SPECIMENOrdering Facility: [facility] Address: [address] [place] [address] Performed By: #### 5 7021-8 ####[facility] LABCLIA [id number] [place] [address] Hemoglobin (Bld) [Mass/Vol] 13.4 g/dL Normal 11.5-15.5 [facility] Comment on above: Order Comment: Speci men Type: BLOOD SPECIMENOrdering Facility: [facility] Address: [address] [place] [address] Performed By: #### 5 7021-8 ####[facility] LABCLIA [id number] [place] [address] Immature granulocytes (Bld) [#/Vol] 0.13 10*3/uL High <0.10 [facility] Comment on above: Order Comment: Speci men Type: BLOOD SPECIMENOrdering Facility: [facility] Address: [address] [place] [address] Performed By: #### 5 7021-8 ####[facility] LABCLIA [id number] [place] [address] Immature granulocytes/100 WBC (Bld) 0.9 % Normal [facility] Comment on above: Order Comment: Speci men Type: BLOOD SPECIMENOrdering Facility: [facility] Address: [address] [place] [address] Performed By: #### 5 7021-8 ####[facility] LABCLIA [id number] [place] [address] Lymphocytes (Bld) [#/Vol] 2.96 10*3/uL Normal 1.00-4.00 [facility] Comment on above: Order Comment: Speci men Type: BLOOD SPECIMENOrdering Facility: [facility] Address: [address] [place] [address] Performed By: #### 5 7021-8 ####[facility] LABCLIA [id number] [place] [address] Lymphocytes/100 WBC (Bld) 20.5 % Normal [facility] Comment on above: Order Comment: Speci men Type: BLOOD SPECIMENOrdering Facility: [facility] Address: [address] [place] [address] Performed By: #### 5 7021-8 ####[facility] LABCLIA [id number] [place] [address] MCH (RBC) [Entitic mass] 31.1 pg Normal 26.0-34.0 [facility] Comment on above: Order Comment: Speci men Type: BLOOD SPECIMENOrdering Facility: [facility] Address: [address] [place] [address] Performed By: #### 5 7021-8 ####[facility] LABCLIA [id number] [place] [address] MCHC (RBC) [Mass/Vol] 33.7 g/dL Normal 30.5-36.0 [facility] Comment on above: Order Comment: Speci men Type: BLOOD SPECIMENOrdering Facility: [facility] Address: [address] [place] [address] Performed By: #### 5 7021-8 ####[facility] LABCLIA [id number] [place] [address] MCV (RBC) [Entitic vol] 92.3 fL Normal 80.0-100.0 [facility] Comment on above: Order Comment: Speci men Type: BLOOD SPECIMENOrdering Facility: [facility] Address: [address] [place] [address] Performed By: #### 5 7021-8 ####[facility] LABCLIA [id number] [place] [address] Monocytes (Bld) [#/Vol] 0.87 10*3/uL High <0.87 [facility] Comment on above: Order Comment: Speci men Type: BLOOD SPECIMENOrdering Facility: [facility] Address: [address] [place] [address] Performed By: #### 5 7021-8 ####[facility] LABCLIA [id number] [place] [address] Monocytes/100 WBC (Bld) 6.0 % Normal [facility] Comment on above: Order Comment: Speci men Type: BLOOD SPECIMENOrdering Facility: [facility] Address: [address] [place] [address] Performed By: #### 5 7021-8 ####[facility] LABCLIA [id number] [place] [address] Neutrophils (Bld) [#/Vol] 10.20 10*3/uL High 1.45-7.50 [facility] Comment on above: Order Comment: Speci men Type: BLOOD SPECIMENOrdering Facility: [facility] Address: [address] [place] [address] Performed By: #### 5 7021-8 ####[facility] LABCLIA [id number] [place] [address] Neutrophils/100 WBC (Bld) 70.8 % Normal [facility] Comment on above: Order Comment: Speci men Type: BLOOD SPECIMENOrdering Facility: [facility] Address: [address] [place], [place] [address] Performed By: #### 5 7021-8 ####[facility] LABCLIA [id number] [place] [address] Nucleated RBC (Bld) [#/Vol] 10*3/uL Normal <0.01 [facility] Comment on above: Order Comment: Speci men Type: BLOOD SPECIMENOrdering Facility: [facility] Address: [address] [place] [address] Performed By: #### 5 7021-8 ####[facility] LABCLIA [id number] [place] [address] Nucleated RBC/100 WBC (Bld) [Ratio] 0.0 /100 WBC Normal [facility] Comment on above: Order Comment: Speci men Type: BLOOD SPECIMENOrdering Facility: [facility] Address: [address] [place] [address] Performed By: #### 5 7021-8 ####[facility] LABCLIA [id number] [place] [address] Platelet mean volume (Bld) [Entitic vol] 10.1 fL Normal 9.0-12.7 [facility] Comment on above: Order Comment: Speci men Type: BLOOD SPECIMENOrdering Facility: [facility] Address: [address] [place] [address] Performed By: #### 5 7021-8 ####[facility] LABIA [id number] [place] [address] Platelets (Bld) [#/Vol] 303 10*3/uL Normal 150-400 [facility] Comment on above: Order Comment: Speci men Type: BLOOD SPECIMENOrdering Facility: [facility] Address: [address] [place] [id number] Performed By: #### 5 7021-8 ####[facility] LABCLIA [id number] [place] [address] RBC (Bld) [#/Vol] 4.31 10*6/uL Normal 3.90-5.20 [facility] Comment on above: Order Comment: Speci men Type: BLOOD SPECIMENOrdering Facility: [facility] Address: [address] [place] [address] Performed By: #### 5 7021-8 ####[facility] LABIA [id number] [place] [address] WBC (Bld) [#/Vol] 14.41 10*3/uL High 3.70-11.00 [facility] Comment on above: Order Comment: Speci men Type: BLOOD SPECIMENOrdering Facility: [facility] Address: [address] [place] [address] Performed By: #### 5 7021-8 ####[facility] LABIA [id number] [place] [address] Comprehensive metabolic 2000 panelon 05-19-2024 Albumin [Mass/Vol] 4.0 g/dL 3.9 - 4.9 g/dL [facility] ALP [Catalytic activity/Vol] 79 U/L 34 - 123 U/L [facility] ALT [Catalytic activity/Vol] 25 U/L 7 - 38 U/L [facility] Anion gap [Moles/Vol] 14 mmol/L 8 - 15 mmol/L [facility] AST [Catalytic activity/Vol] 12 U/L Low 13 - 35 U/L [facility] Bilirubin [Mass/Vol] mg/dL Low 0.2 - 1 .3 mg/dL [facility] Calcium [Mass/Vol] 9.4 mg/dL 8.5 - 10. 2 mg/dL [facility] Chloride [Moles/Vol] 105 mmol/L 98 - 10 7 mmol/L [facility] CO2 [Moles/Vol] 21 mmol/L Low 22 - 30 mmol/L [facility] Creatinine [Mass/Vol] 0.49 mg/dL Low 0.58 - 0.96 mg/dL [facility] GFR/1.73 sq M.predicted among non-blacks MDRD (S/P/Bld) [Vol rate/Area] 120 mL/min/{1.73_m2} - PINF [facility] Comment on above: Estimated [...] 155 mg/dL High 74 - 99 mg/dL [facility] Comment on above: The [place] Diabete s Association (ADA) provides guidance for [...] Standards of Medical Care in Diabetes 2016, [place] [employer]. Diabetes Care. 2016.39(Suppl 1). Interpretation and review of laboratory results Abnormal [facility] Potassium [Moles/Vol] 3.8 mmol/L 3.7 - 5.1 mmol/L [facility] Protein [Mass/Vol] 6.6 g/dL 6.3 - 8.0 g/dL [facility] Sodium [Moles/Vol] 140 mmol/L 136 - 144 mmol/L [facility] Urea nitrogen [Mass/Vol] 12 mg/dL 7 - 21 mg/dL [facility] Albumin [Mass/Vol] 4.0 g/dL Normal 3.9-4.9 [facility] Comment on above: Order Comment: Speci men Type: BLOOD SPECIMENOrdering Facility: [facility] Address: [address] [place] [address] Performed By: #### 2 4323-8 ####[facility] LABCLIA [id number] [place] [address] [place] ALP [Catalytic activity/Vol] 79 U/L Normal 34-123 [facility] Comment on above: Order Comment: Speci men Type: BLOOD SPECIMENOrdering Facility: [facility] Address: [address] [place] [address] Performed By: #### 2 4323-8 ####[facility] LABCLIA [id number] [place] [address] [place] ALT [Catalytic activity/Vol] 25 U/L Normal 7-38 [facility] Comment on above: Order Comment: Speci men Type: BLOOD SPECIMENOrdering Facility: [facility] Address: [address] [place] [address] Performed By: #### 2 4323-8 ####[facility] LABCLIA [id number] [place] [address] [place] Anion gap [Moles/Vol] 14 mmol/L Normal 8-15 [facility] Comment on above: Order Comment: Speci men Type: BLOOD SPECIMENOrdering Facility: [facility] Address: [address] [place] [address] Performed By: #### 2 4323-8 ####[facility] LABCLIA [id number] [place] [address] [place] AST [Catalytic activity/Vol] 12 U/L Low 13-35 [facility] Comment on above: Order Comment: Speci men Type: BLOOD SPECIMENOrdering Facility: [facility] Address: [address] [place] [address] Performed By: #### 2 4323-8 ####[facility] LABCLIA [id number] [place] [address] [place] Bilirubin [Mass/Vol] mg/dL Low 0.2-1.3 [facility] Comment on above: Order Comment: Speci men Type: BLOOD SPECIMENOrdering Facility: [facility] Address: [address] [place] [address] Performed By: #### 2 4323-8 ####[facility] LABCLIA [id number] [place] [address] [place] Calcium [Mass/Vol] 9.4 mg/dL Normal 8.5-10.2 [facility] Comment on above: Order Comment: Speci men Type: BLOOD SPECIMENOrdering Facility: [facility] Address: [address] [place] [address] Performed By: #### 2 4323-8 ####[facility] LABCLIA [id number] [place] [address] [place] Chloride [Moles/Vol] 105 mmol/L Normal 98-107 [facility] Comment on above: Order Comment: Speci men Type: BLOOD SPECIMENOrdering Facility: [facility] Address: [address] [place] [address] Performed By: #### 2 4323-8 ####[facility] LABCLIA [id number] [place] [address] [place] CO2 [Moles/Vol] 21 mmol/L Low 22-30 [facility] Comment on above: Order Comment: Speci men Type: BLOOD SPECIMENOrdering Facility: [facility] Address: [address] [place] [address] Performed By: #### 2 4323-8 ####[facility] LABCLIA [id number] [place] [address] [place] Creatinine [Mass/Vol] 0.49 mg/dL Low 0.58-0.96 [facility] Comment on above: Order Comment: Speci men Type: BLOOD SPECIMENOrdering Facility: [facility] Address: [address] [place] [address] Performed By: #### 2 4323-8 ####[facility] LABCLIA [id number] [place] [address] [place] Creatinine and Glomerular filtration rate.predicted panel (S/P/Bld) 120 mL/min/1.73m??? Normal >=60 [facility] Comment on above: Order Comment: Semaj cortés Type: BLOOD SPECIMENOrdering Facility: [facility] Address: [address] [place] [address] Result Comment: Erin mated Glomerular Filtration Rate [...] actual GFR. Performed By: #### 2 4323-8 ####[facility] LABIA [id number] [place] [address] [place] Glucose [Mass/Vol] 155 mg/dL High 74-99 [facility] Comment on above: Order Comment: Semaj cortés Type: BLOOD SPECIMENOrdering Facility: [facility] Address: [address] [place] [address] Result Comment: The [place] [employer] (ADA) provides guidance for cutoff [...] Standards of Medical Care in Diabetes 2016, [place] [employer]. Diabetes Care. 2016.39(Suppl 1). Performed By: #### 2 4323-8 ####[facility] LABIA [id number] [place] [address] [place] Potassium [Moles/Vol] 3.8 mmol/L Normal 3.7-5.1 [facility] Comment on above: Order Comment: Speci men Type: BLOOD SPECIMENOrdering Facility: [facility] Address: [address] [place] [address] Performed By: #### 2 4323-8 ####[facility] LABCLIA [id number] [place] [address] [place] Protein [Mass/Vol] 6.6 g/dL Normal 6.3-8.0 [facility] Comment on above: Order Comment: Speci men Type: BLOOD SPECIMENOrdering Facility: [facility] Address: [address] [place] [address] Performed By: #### 2 4323-8 ####[facility] LABCLIA [id number] [place] [address] [place] Sodium [Moles/Vol] 140 mmol/L Normal 136-144 [facility] Comment on above: Order Comment: Speci men Type: BLOOD SPECIMENOrdering Facility: [facility] Address: [address] [place] [address] Performed By: #### 2 4323-8 ####[facility] LABCLIA [id number] [place] [address] [place] Urea nitrogen [Mass/Vol] 12 mg/dL Normal 7-21 [facility] Comment on above: Order Comment: Speci men Type: BLOOD SPECIMENOrdering Facility: [facility] Address: [address] [place] [address] Performed By: #### 2 4323-8 ####[facility] LABCLIA [id number] [place] [address] [place] ESR Westergren method (Bld) [Velocity]on 05-19-2024 ESR (Bld) [Velocity] 21 mm/h [facility] Interpretation and review of laboratory results Abnormal [facility] ESR (Bld) [Velocity] 21 mm/h High 0-20 [facility] Comment on above: Order Comment: Speci men Type: BLOOD SPECIMENOrdering Facility: [facility] Address: [address] [place] [address] Performed By: #### 4 537-7 ####[facility] LABCLIA [id number] [place] [address] [place] FERRITIN BLDon 05-19-2024 Ferritin [Mass/Vol] 20.6 ng/mL 14.7 - 2 05.1 ng/mL [facility] FOLATE SERUMon 05-19-2024 Folate [Mass/Vol] 11.1 ng/mL 4.7 - PINF ng/mL [facility] Ferritin SerPl-mCncon 2023 Ferritin [Mass/Vol] 20.6 ng/mL Normal 14.7-205.1 [facility] Comment on above: Order Comment: Speci men Type: BLOOD SPECIMENOrdering Facility: [facility] Address: [address] [place] [address] Performed By: #### 5 0190-8, 2276-4, 2284-8, 9 ####[facility] LABCLIA [id number] [place] [address] [place] Folate SerPl-mCncon 05-19-20 24 Folate [Mass/Vol] 11.1 ng/mL Normal >4.7 [facility] Comment on above: Order Comment: Speci men Type: BLOOD SPECIMENOrdering Facility: [facility] Address: [address] [place] [address] Performed By: #### 5 0190-8, 2276-4, 2284-8, 2131-9 ####[facility] LABCLIA [id number] [place] [address] [place] Iron and Iron binding capaci ty panelon 05-19-2024 Interpretation and review of laboratory results Abnormal [facility] Iron [Mass/Vol] 47 ug/dL 41 - 186 ug/dL [facility] Iron binding capacity [Mass/Vol] 420 ug/dL High 232 - 386 ug/dL [facility] Iron/TIBC [Molar ratio] 11.2 % Low 15.0 - 57.0 % [facility] Iron [Mass/Vol] 47 ug/dL Normal 41-186 [facility] Comment on above: Order Comment: Speci men Type: BLOOD SPECIMENOrdering Facility: [facility] Address: [address] [place] [address] Performed By: #### 5 0190-8, 2275-4, 8, 2132-01 ####[facility] LABIA [id number] [place] [address] [place] Iron binding capacity [Mass/Vol] 420 ug/dL High 232-386 [facility] Comment on above: Order Comment: Speci men Type: BLOOD SPECIMENOrdering Facility: [facility] Address: [address] [place] [address] Performed By: #### 5 0190-8, 2275-4, 8, 2132-01 ####[facility] LABIA [id number] [place] [address] [place] Iron/TIBC [Molar ratio] 11.2 % Low 15.0-57.0 [facility] Comment on above: Order Comment: Speci men Type: BLOOD SPECIMENOrdering Facility: [facility] Address: [address] [place] [address] Performed By: #### 5 0190-8, 2275-4, 8, 2132-01 ####[facility] LABIA [id number] [place] [id number] [place] No Panel Informationon 05-19 Interpretation and review of laboratory results Normal [facility] VITAMIN B12 BLOODon 05-19-20 24 Cobalamin (Vitamin B12) [Mass/Vol] 632 pg/mL 232 - 1245 pg/mL [facility] Vit B12 SerPl-mCncon 024 Cobalamin (Vitamin B12) [Mass/Vol] 632 pg/mL Normal 232-1245 [facility] Comment on above: Order Comment: Speci men Type: BLOOD SPECIMENOrdering Facility: [facility] Address: [address] [place] [address] Performed By: #### 5 0190-8, 2276-4, 2284-8, 2132-9 ####[facility] LABCLIA [id number] [address] [id number] [address] [place] CNNURSEon 04-26-2024 CNNURSE Normal [facility] CNPNon 04-10-2024 CNPN Normal [facility] ALL CBC WITH AUTO DIFFon BASOPHILS ABSOLUTE AUTO 0.1 [facility] Basophils/100 WBC (Bld) 0.4 % 0.2 - 2.0 % [facility] Eosinophils/100 WBC (Bld) 0.4 % Low 0.9 - 7.0 % [facility] Erythrocyte distribution width (RBC) [Ratio] 15.1 % High 11.0 - 15.0 % [facility] Hematocrit (Bld) [Volume fraction] 39.7 % 36.0 - 48.0 % [facility] Hemoglobin (Bld) [Mass/Vol] 13 g/dL 12.0 - 16.0 g/dL [facility] IMMATURE GRANULOCYTES ABS AUTO 0.1 High [facility] Immature granulocytes/100 WBC (Bld) 0.9 % High 0.0 - 0.5 % [facility] Interpretation and review of laboratory results Abnormal [facility] LYMPHOCYTES ABSOLUTE AUTO 2.1 [facility] Lymphocytes/100 WBC (Bld) 18.4 % Low 20.5 - 60.0 % [facility] MCH (RBC) [Entitic mass] 30.9 pg 26.7 - 34.0 pg [facility] MCHC (RBC) [Mass/Vol] 32.7 g/dL 29.9 - 35.2 g/dL [facility] MCV (RBC) [Entitic vol] 94.3 fL 81.0 - 99.0 fL [facility] MONOCYTES ABSOLUTE AUTO 0.8 [facility] Monocytes/100 WBC (Bld) 6.7 % 1.7 - 12.0 % [facility] NEUTROPHILS ABSOLUTE AUTO 8.3 High [facility] Neutrophils/100 WBC (Bld) 73.2 % 43.0 - 75.0 % [facility] Platelet mean volume (Bld) [Entitic vol] 10.1 fL 9.5 - 13.5 fL [facility] TBH EO # 0.1 [facility] PLT 326 [facility] RBC 4.21 [facility] WBC 11.4 High [facility] ALL THYROID STIM HORMONEon 1 06-06-2023 Interpretation and review of laboratory results Abnormal [facility] TSH Qn 0.333 m[IU]/L Low [facility] ALL THYROXINE (T4) FREEon Free T4 [Mass/Vol] 1.01 ng/dL 0.76 - 1. 46 ng/dL [facility] CCF APTTon 04-06-2024 aPTT Coag (Bld) [Time] 25.6 s [facility] MLR HEMOGLOBIN A1Con 024 Glucose [Mass/Vol] 134 mg/dL [facility] HbA1c (Bld) [Mass fraction] 6.3 % High 4.5 - 6.2 % [facility] Comment on above: ADA RECOMMENDED LIMI T 4.0 - 6.0 ADA THERAPEUTIC TARGET < 7.0 ACTION SUGGESTED > 7.0 Interpretation and review of laboratory results Abnormal [facility] No Panel Informationon 04-06 [facility] SRMCOH PROTHROMBIN TIME INR W/O COUMon 04-06-2024 PT Coag (PPP) [Time] 9.6 s [facility] INR <0.93 [facility] Comment on above: DESIRED INR: 2.0-3.0 CONDITIONS NOT LISTED BELOW 2.5-3.5 FOR PROSTHETIC HEART VALVE REPLACEMENT 2.5-3.5 RECURRENT THROMBOSIS TBH PREG QUANT HCGon 024 HCG QUANTITATIVE <1 mIU/mL [facility] Comment on above: 5-50 0.2-1 WEEK 50-500 1-2 WEEKS 100-5,000 2-3 WEEKS 500-10,000 3-4 WEEKS 1,000-50,000 4-5 WEEKS 10,000-100,000 5-6 WEEKS 15,000-200,000 6-8 WEEKS 10,000-100,000 2-3 MONTHS CNPNon 04-02-2024 CNPN Normal [facility] 25(OH)D3 SerPl-mCncon 2023 25-hydroxyvitamin D3 [Mass/Vol] 19.9 ng/mL Low 31.0-80.0 [facility] Comment on above: Order Comment: Speci men Type: BLOOD SPECIMENOrdering Facility: [facility] Address: [address] [place] [address] Result Comment: Clas sification of 25 [place] Vitamin D status:Deficiency/Insufficiency: < or = 30 ng/ml.Sufficiency/Optimal Levels: 31-80 ng/mLToxicity: > 100 ng/mL.Test performed by chemiluminescent immunoassay. Performed By: #### 1 989-3 ####[facility] LABCLIA [id number] [place] [address] [place] BLOOD TB SCREENon 03-23-2024 M. tuberculosis tuberculin stim IFN-g Ql (Bld) Negative Normal [facility] Comment on above: Order Comment: Speci men Type: BLOOD SPECIMENOrdering Facility: [facility] Address: [address] [place] [address] Performed By: #### I NFTBP ####[facility] LABCLIA [id number] [place] [address] [place] MITOGEN MINUS NIL >10.00 Normal >=0.50 [facility] Comment on above: Order Comment: Speci men Type: BLOOD SPECIMENOrdering Facility: [facility] Address: [address] [place] [address] Performed By: #### I NFTBP ####[facility] LABCLIA [id number] [place] [address] [place] TB GAMMA INTERPRETATION Normal [facility] Comment on above: Order Comment: Speci men Type: BLOOD SPECIMENOrdering Facility: [facility] Address: [address] [place] [address] Performed By: #### I NFTBP ####[facility] LABCLIA [id number] [place] [address] [place] TB NIL <0.00 Normal <=8.00 [facility] Comment on above: Order Comment: Speci men Type: BLOOD SPECIMENOrdering Facility: [facility] Address: [address] [place] [address] Performed By: #### I NFTBP ####[facility] LABCLIA [id number] [place] [address] [place] TB1 AG MINUS NIL 0.00 IU/mL Normal <0.35 [facility] [place] Comment on above: Order Comment: Speci men Type: BLOOD SPECIMENOrdering Facility: [facility] Address: [address] [place] [address] Performed By: #### I NFTBP ####[facility] LABCLIA [id number] [place] [address] [place] TB2 AG MINUS NIL 0.00 IU/mL Normal <0.35 [facility] [place] Comment on above: Order Comment: Speci men Type: BLOOD SPECIMENOrdering Facility: [facility] Address: [address] [place] [address] Performed By: #### I NFTBP ####[facility] LABCLIA [id number] [place] [address] [place] Bacteria Bld Culton 03-23-20 24 Bacteria identified Cx Nom (Bld) CULTURE, BLOOD: No growth 5 days Normal [facility] Comment on above: Performed By: #### 6 00-7 ####[facility] LABCLIA [id number] [place] [address] [place] CBC W Auto Differential pane l (Bld)on 03-23-2024 Basophils (Bld) [#/Vol] 0.06 10*3/uL Normal <0.11 [facility] Comment on above: Order Comment: Speci men Type: BLOOD SPECIMENOrdering Facility: [facility] Address: [address] [place] [address] Performed By: #### 5 7021-8 ####[facility] LABCLIA [id number] [place] [address] Basophils/100 WBC (Bld) 0.5 % Normal [facility] Comment on above: Order Comment: Speci men Type: BLOOD SPECIMENOrdering Facility: [facility] Address: [address] [place] [address] Performed By: #### 5 7021-8 ####[facility] LABCLIA [id number] [place] [address] Differential cell count method Nom (Bld) Auto Normal [facility] Comment on above: Order Comment: Speci men Type: BLOOD SPECIMENOrdering Facility: [facility] Address: [address] [place] [address] Performed By: #### 5 7021-8 ####[facility] LABCLIA [id number] [place] [address] Eosinophils (Bld) [#/Vol] 0.13 10*3/uL Normal <0.46 [facility] Comment on above: Order Comment: Speci men Type: BLOOD SPECIMENOrdering Facility: [facility] Address: [address] [place] [address] Performed By: #### 5 7021-8 ####[facility] LABCLIA [id number] [place] [address] Eosinophils/100 WBC (Bld) 1.0 % Normal [facility] Comment on above: Order Comment: Speci men Type: BLOOD SPECIMENOrdering Facility: [facility] Address: [address] [place] [address] Performed By: #### 5 7021-8 ####[facility] LABCLIA [id number] [place] [address] Erythrocyte distribution width (RBC) [Ratio] 15.2 % High 11.5-15.0 [facility] Comment on above: Order Comment: Speci men Type: BLOOD SPECIMENOrdering Facility: [facility] Address: [address] [place] [address] Performed By: #### 5 7021-8 ####[facility] LABCLIA [id number] [place] [address] Hematocrit (Bld) [Volume fraction] 39.3 % Normal 36.0-46.0 [facility] Comment on above: Order Comment: Speci men Type: BLOOD SPECIMENOrdering Facility: [facility] Address: [address] [place] [address] Performed By: #### 5 7021-8 ####[facility] LABIA [id number] [place] [address] Hemoglobin (Bld) [Mass/Vol] 13.1 g/dL Normal 11.5-15.5 [facility] Comment on above: Order Comment: Speci men Type: BLOOD SPECIMENOrdering Facility: [facility] Address: [address] [place] [address] Performed By: #### 5 7021-8 ####[facility] LABCLIA [id number] [place] [address] Immature granulocytes (Bld) [#/Vol] 0.12 10*3/uL High <0.10 [facility] Comment on above: Order Comment: Speci men Type: BLOOD SPECIMENOrdering Facility: [facility] Address: [address] [place] [address] Performed By: #### 5 7021-8 ####[facility] LABCLIA [id number] [place] [address] Immature granulocytes/100 WBC (Bld) 0.9 % Normal [facility] Comment on above: Order Comment: Speci men Type: BLOOD SPECIMENOrdering Facility: [facility] Address: [address] [place] [address] Performed By: #### 5 7021-8 ####[facility] LABCLIA [id number] [place] [address] Lymphocytes (Bld) [#/Vol] 2.03 10*3/uL Normal 1.00-4.00 [facility] Comment on above: Order Comment: Speci men Type: BLOOD SPECIMENOrdering Facility: [facility] Address: [address] [place] [address] Performed By: #### 5 7021-8 ####[facility] LABCLIA [id number] [place] [address] Lymphocytes/100 WBC (Bld) 15.7 % Normal [facility] Comment on above: Order Comment: Speci men Type: BLOOD SPECIMENOrdering Facility: [facility] Address: [address] [place] [address] Performed By: #### 5 7021-8 ####[facility] LABCLIA [id number] [place] [address] MCH (RBC) [Entitic mass] 31.3 pg Normal 26.0-34.0 [facility] Comment on above: Order Comment: Speci men Type: BLOOD SPECIMENOrdering Facility: [facility] Address: [address] [place] [address] Performed By: #### 5 7021-8 ####[facility] LABCLIA [id number] [place] [address] MCHC (RBC) [Mass/Vol] 33.3 g/dL Normal 30.5-36.0 [facility] Comment on above: Order Comment: Speci men Type: BLOOD SPECIMENOrdering Facility: [facility] Address: [address] [place] [address] Performed By: #### 5 7021-8 ####[facility] LABIA [id number] [place] [address] MCV (RBC) [Entitic vol] 93.8 fL Normal 80.0-100.0 [facility] Comment on above: Order Comment: Speci men Type: BLOOD SPECIMENOrdering Facility: [facility] Address: [address] [place] [address] Performed By: #### 5 7021-8 ####[facility] LABCLIA [id number] [place] [address] Monocytes (Bld) [#/Vol] 0.65 10*3/uL Normal <0.87 [facility] Comment on above: Order Comment: Speci men Type: BLOOD SPECIMENOrdering Facility: [facility] Address: [address] [place] [address] Performed By: #### 5 7021-8 ####[facility] LABCLIA [id number] [place] [address] Monocytes/100 WBC (Bld) 5.0 % Normal [facility] Comment on above: Order Comment: Speci men Type: BLOOD SPECIMENOrdering Facility: [facility] Address: [address] [place] [address] Performed By: #### 5 7021-8 ####[facility] LABCLIA [id number] [place] [address] Neutrophils (Bld) [#/Vol] 9.90 10*3/uL High 1.45-7.50 [facility] Comment on above: Order Comment: Speci men Type: BLOOD SPECIMENOrdering Facility: [facility] Address: [address] [place] [address] Performed By: #### 5 7021-8 ####[facility] LABCLIA [id number] [place] [address] Neutrophils/100 WBC (Bld) 76.9 % Normal [facility] Comment on above: Order Comment: Speci men Type: BLOOD SPECIMENOrdering Facility: [facility] Address: [address] [place] [address] Performed By: #### 5 7021-8 ####[facility] LABCLIA [id number] [place] [address] Nucleated RBC (Bld) [#/Vol] 10*3/uL Normal <0.01 [facility] Comment on above: Order Comment: Speci men Type: BLOOD SPECIMENOrdering Facility: [facility] Address: [address] [place] [address] Performed By: #### 5 7021-8 ####[facility] LABCLIA [id number] [place] [address] Nucleated RBC/100 WBC (Bld) [Ratio] 0.0 /100 WBC Normal [facility] Comment on above: Order Comment: Speci men Type: BLOOD SPECIMENOrdering Facility: [facility] Address: [address] [place] [address] Performed By: #### 5 7021-8 ####[facility] LABCLIA [id number] [place] [address] Platelet mean volume (Bld) [Entitic vol] 10.0 fL Normal 9.0-12.7 [facility] Comment on above: Order Comment: Speci men Type: BLOOD SPECIMENOrdering Facility: [facility] Address: [address] [place] [address] Performed By: #### 5 7021-8 ####[facility] LABIA [id number] [place] [address] Platelets (Bld) [#/Vol] 262 10*3/uL Normal 150-400 [facility] Comment on above: Order Comment: Speci men Type: BLOOD SPECIMENOrdering Facility: [facility] Address: [address] [place] [address] Performed By: #### 5 7021-8 ####[facility] LABIA [id number] [place] [address] RBC (Bld) [#/Vol] 4.19 10*6/uL Normal 3.90-5.20 [facility] Comment on above: Order Comment: Speci men Type: BLOOD SPECIMENOrdering Facility: [facility] Address: [address] [place] [address] Performed By: #### 5 7021-8 ####[facility] LABCLIA [id number] [place] [address] WBC (Bld) [#/Vol] 12.89 10*3/uL High 3.70-11.00 [facility] Comment on above: Order Comment: Speci men Type: BLOOD SPECIMENOrdering Facility: [facility] Address: [address] [place] [address] Performed By: #### 5 7021-8 ####[facility] LABCLIA [id number] [place] [address] CNNURSEon 03-23-2024 CNNURSE Normal [facility] CRP SerPl-mCncon 03-23-2024 CRP [Mass/Vol] 0.3 mg/dL Normal <0.9 [facility] Comment on above: Order Comment: Speci men Type: BLOOD SPECIMENOrdering Facility: [facility] Address: [address] [place] [address] Performed By: #### 5 0190-8, 2276-4, 1988- ####[facility] LABCLIA [id number] [place] [address] [place] Comprehensive metabolic 2000 panelon 03-23-2024 Albumin [Mass/Vol] 3.9 g/dL Normal 3.9-4.9 [facility] Comment on above: Order Comment: Speci men Type: BLOOD SPECIMENOrdering Facility: [facility] Address: [address] [place] [address] Performed By: #### 2 4323-8 ####[facility] LABCLIA [id number] [place] [id number] [place] ALP [Catalytic activity/Vol] 70 U/L Normal 34-123 [facility] Comment on above: Order Comment: Speci men Type: BLOOD SPECIMENOrdering Facility: [facility] Address: [address] [place] [address] Performed By: #### 2 4323-8 ####[facility] LABCLIA [id number] [place] [id number] [place] ALT [Catalytic activity/Vol] 27 U/L Normal 7-38 [facility] Comment on above: Order Comment: Speci men Type: BLOOD SPECIMENOrdering Facility: [facility] Address: [address] [place] [address] Performed By: #### 2 4323-8 ####[facility] LABCLIA [id number] [place] [address] [place] Anion gap [Moles/Vol] 15 mmol/L Normal 8-15 [facility] Comment on above: Order Comment: Speci men Type: BLOOD SPECIMENOrdering Facility: [facility] Address: [address] [place] [address] Performed By: #### 2 4323-8 ####[facility] LABCLIA [id number] [place] [address] [place] AST [Catalytic activity/Vol] 20 U/L Normal 13-35 [facility] Comment on above: Order Comment: Speci men Type: BLOOD SPECIMENOrdering Facility: [facility] Address: [address] [place] [address] Performed By: #### 2 4323-8 ####[facility] LABCLIA [id number] [place] [address] [place] Bilirubin [Mass/Vol] mg/dL Low 0.2-1.3 [facility] Comment on above: Order Comment: Speci men Type: BLOOD SPECIMENOrdering Facility: [facility] Address: [address] [place], [place] [address] Performed By: #### 2 4323-8 ####[facility] LABCLIA [id number] [place] [id number] [place] Calcium [Mass/Vol] 9.2 mg/dL Normal 8.5-10.2 [facility] Comment on above: Order Comment: Speci men Type: BLOOD SPECIMENOrdering Facility: [facility] Address: [address] [place] [address] Performed By: #### 2 4323-8 ####[facility] LABCLIA [id number] [place] [address] [place] Chloride [Moles/Vol] 104 mmol/L Normal 98-107 [facility] Comment on above: Order Comment: Speci men Type: BLOOD SPECIMENOrdering Facility: [facility] Address: [address] [place] [address] Performed By: #### 2 4323-8 ####[facility] LABCLIA [id number] [place] [address] [place] CO2 [Moles/Vol] 20 mmol/L Low 22-30 [facility] Comment on above: Order Comment: Speci men Type: BLOOD SPECIMENOrdering Facility: [facility] Address: [address] [place] [address] Performed By: #### 2 4323-8 ####[facility] LABCLIA [id number] [place] [address] [place] Creatinine [Mass/Vol] 0.61 mg/dL Normal 0.58-0.96 [facility] Comment on above: Order Comment: Speci men Type: BLOOD SPECIMENOrdering Facility: [facility] Address: [address] [place] [address] Performed By: #### 2 4323-8 ####[facility] LABCLIA [id number] [place] [address] [place] Creatinine and Glomerular filtration rate.predicted panel (S/P/Bld) 114 mL/min/1.73m??? Normal >=60 [facility] Comment on above: Order Comment: Speci men Type: BLOOD SPECIMENOrdering Facility: [facility] Address: [address] [place] [address] Result Comment: Erin mated Glomerular Filtration Rate [...] actual GFR. Performed By: #### 2 4323-8 ####[facility] LABCLIA [id number] [place] [address] [place] Glucose [Mass/Vol] 152 mg/dL High 74-99 [facility] Comment on above: Order Comment: Semaj cortés Type: BLOOD SPECIMENOrdering Facility: [facility] Address: [address] [place] [address] Result Comment: The [place] Diabetes Association (ADA) provides guidance for cutoff [...] Standards of Medical Care in Diabetes 2016, [place] [employer]. Diabetes Care. 2016.39(Suppl 1). Performed By: #### 2 4323-8 ####[facility] LABIA [id number] [place] [address] [place] Potassium [Moles/Vol] 4.3 mmol/L Normal 3.7-5.1 [facility] Comment on above: Order Comment: Semaj cortés Type: BLOOD SPECIMENOrdering Facility: [facility] Address: [address] [id number] Performed By: #### 2 4323-8 ####[facility] LABCLIA [id number] [place] [address] [place] Protein [Mass/Vol] 6.6 g/dL Normal 6.3-8.0 [facility] Comment on above: Order Comment: Speci men Type: BLOOD SPECIMENOrdering Facility: [facility] Address: [address] [place] [address] Performed By: #### 2 4323-8 ####[facility] LABCLIA [id number] [place] [address] [place] Sodium [Moles/Vol] 139 mmol/L Normal 136-144 [facility] Comment on above: Order Comment: Speci men Type: BLOOD SPECIMENOrdering Facility: [facility] Address: [address] [place] [address] Performed By: #### 2 4323-8 ####[facility] LABIA [id number] [place] [address] [place] Urea nitrogen [Mass/Vol] 20 mg/dL Normal 7-21 [facility] Comment on above: Order Comment: Speci men Type: BLOOD SPECIMENOrdering Facility: [facility] Address: [address] [place] [address] Performed By: #### 2 4323-8 ####[facility] LABIA [id number] [place] [address] [place] ESR Westergren method (Bld) [Velocity]on 03-23-2024 ESR (Bld) [Velocity] 27 mm/h High 0-20 [facility] Comment on above: Order Comment: Speci men Type: BLOOD SPECIMENOrdering Facility: [facility] Address: [address] [place] [address] Performed By: #### 4 537-7 ####[facility] LABIA [id number] [place] [address] [place] Ferritin SerPl-mCncon 2023 Ferritin [Mass/Vol] 33.3 ng/mL Normal 14.7-205.1 [facility] Comment on above: Order Comment: Speci men Type: BLOOD SPECIMENOrdering Facility: [facility] Address: [address] [place] [address] Performed By: #### 5 0190-8, 2276-4, 1987-09 ####[facility] LABCLIA [id number] [place] [address] [place] Folate SerPl-mCncon 03-23-20 Folate [Mass/Vol] 13.0 ng/mL Normal >4.7 [facility] Comment on above: Order Comment: Speci men Type: BLOOD SPECIMENOrdering Facility: [facility] Address: [address] [place] [address] Performed By: #### 2 132-9, 2284-8 ####[facility] LABCLIA [id number] [place] [address] [place] HCG ( test) Ql (U)o n 03-23-2024 Interpretation and review of laboratory results Normal [facility] Preg Test, Ur Negative Negative Critical [facility] hospital IMMUNOGLOBULINS,IGG,IGA,IGMo n 03-23-2024 IgA [Mass/Vol] 171 mg/dL Normal 70-400 [facility] Comment on above: Order Comment: Speci men Type: BLOOD SPECIMENOrdering Facility: [facility] Address: [address] [place] [address] Performed By: #### S ERIMM ####[facility] LABCLIA [id number] [place] [address] [place] IgG [Mass/Vol] 476 mg/dL Low 700-1600 [facility] Comment on above: Order Comment: Speci men Type: BLOOD SPECIMENOrdering Facility: [facility] Address: [address] [place] [address] Performed By: #### S ERIMM ####[facility] LABCLIA [id number] [place] [address] [place] IgM [Mass/Vol] 373 mg/dL High 40-230 [facility] Comment on above: Order Comment: Speci men Type: BLOOD SPECIMENOrdering Facility: [facility] Address: [address] [place] [address] Performed By: #### S ERIMM ####[facility] LABCLIA [id number] [place] [id number] [place] Iron and Iron binding capaci ty panelon 03-23-2024 Iron [Mass/Vol] 67 ug/dL Normal 41-186 [facility] Comment on above: Order Comment: Speci men Type: BLOOD SPECIMENOrdering Facility: [facility] Address: [address] [place] [address] Performed By: #### 5 0190-8, 2275-08, 1987-09 ####[facility] LABCLIA [id number] [place] [address] [place] Iron binding capacity [Mass/Vol] 399 ug/dL High 232-386 [facility] Comment on above: Order Comment: Speci men Type: BLOOD SPECIMENOrdering Facility: [facility] Address: [address] [place] [address] Performed By: #### 5 0190-8, 2275-08, 1987-09 ####[facility] LABIA [id number] [place] [address] [place] Iron/TIBC [Molar ratio] 16.8 % Normal 15.0-57.0 [facility] Comment on above: Order Comment: Speci men Type: BLOOD SPECIMENOrdering Facility: [facility] Address: [address] [place] [address] Performed By: #### 5 0190-8, 2275-08, 1987-09 ####[facility] LABIA [id number] [place] [address] [place] Urinalysis macro (dipstick) panel (U)on 03-23-2024 Bilirubin, UA Negative Negative - 4(70) +++ mg/dL [facility] Blood, UA Positive Negative - 50 Dusty/mcL [facility] Comment on above: large Clarity, UA Cloudy [facility] Color, UA Dark Georgie [facility] Glucose, UA Positive Negative - 1999(110) ++++ mg/dL [facility] Comment on above: 100 mg Interpretation and review of laboratory results Abnormal [facility] Ketones, UA Negative Negative - 160(16) ++++ mg/dL [facility] Leukocytes, UA Positive Negative - 500+++ Andi/mcL [facility] Comment on above: small Nitrite, UA Negative Negative - Positive [facility] pH, UA 5.5 5 - 9 [facility] Protein, UA Positive Negative - 1999(20) ++++ mg/dL [facility] Comment on above: 30 mg Spec Grav, UA 1.03 1 - 1.03 [facility] Urobilinogen, UA 0.2 0.2 - 12 mg/dL Critical [facility] Vit B12 [facility] 024 Cobalamin (Vitamin B12) [Mass/Vol] 607 pg/mL Normal 232-1245 [facility] Comment on above: Order Comment: Speci men Type: BLOOD SPECIMENOrdering Facility: [facility] Address: [address] [place] [address] Performed By: #### 2 132-9, 2284-8 ####[facility] LABCLIA [id number] [place] [address] [place] Office Visiton 03-08-2024 Follow-up visit [id number] Ariadna Haley 1980 F Date Provider Department Center 03/08/2024 Renny-CALOS MENDOZA [facility] Family History Problem Relation Age of Onset Heart failure Maternal Grandmother Heart attack Maternal Grandfather Family Status - Relation Status Age at Maternal Grandmother Maternal Grandfather Level of Service:59741 [place] OFFICE/OUTPATIENT NEW MODERATE MDM 45 MINUTES Normal [facility] HCG ( test) Marcelo varela Ql (U)Ordered By: Adolfo Kang on 02-16-2024 HCG ( test) Ql (U) Negative [facility] ECG 12 Leadon 07-13-2023 ECG revealed normal sinus rhythm [facility] Work Phone: CBC AUTO DIFFon 09-24-2022 BASO # 0.1 103/ul Normal 0.0-0.1 [facility] Comment on above: Performed By: #### U AMIC #### [facility] [address] [address] [address] Manda York Basophils/100 WBC (Bld) 0.6 % Normal 0.2-2.0 [facility] Comment on above: Performed By: #### U AMIC #### [facility] [address] [address] [address] Manda York EO # 0.1 103/ul Normal 0.0-0.7 [facility] Comment on above: Performed By: #### U AMIC #### [facility] [address] [place] [address] Dr. Manda York Eosinophils/100 WBC (Bld) 0.6 % Critically low 0.9-7.0 [facility] Comment on above: Performed By: #### U AMIC #### [facility] [address] [address] [address] Manda York Erythrocyte distribution width (RBC) [Ratio] 14.6 % Normal 11.0-15.0 [facility] Comment on above: Performed By: #### U AMIC #### [facility] [address] [address] [address] Manda York Hematocrit (Bld) [Volume fraction] 43.4 % Normal 36.0-48.0 [facility] Comment on above: Performed By: #### U AMIC #### [facility] [address] [address] [address] Manda York Hemoglobin (Bld) [Mass/Vol] 13.7 g/dL Normal 12.0-16.0 [facility] Comment on above: Performed By: #### U AMIC #### [facility] [address] [address] [address] Manda York IG # 0.12 10e3/ul Critically high 0.00-0.03 [facility] Comment on above: Performed By: #### U AMIC #### [facility] [address] [address] [address] Manda York IG % 0.8 % Critically high 0.0-0.5 [facility] Comment on above: Performed By: #### U AMIC #### [facility] [address] [address] [address] Manda York LYMPH # 2.6 103/ul Normal 1.2-3.8 [facility] Comment on above: Performed By: #### U AMIC #### [facility] [address] [address] [address] Manda York Lymphocytes/100 WBC (Bld) 18.3 % Critically low 20.5-60.0 [facility] Comment on above: Performed By: #### U AMIC #### [facility] [address] [place] [address] Dr. Manda York MANUAL DIFF REQ NO Normal [facility] Comment on above: Performed By: #### U AMIC #### [facility] [address] [address] [address] Manda York MCH (RBC) [Entitic mass] 29.0 pg Normal 26.7-34.0 [facility] Comment on above: Performed By: #### U AMIC #### [facility] [address] [address] [address] Manda York MCHC (RBC) [Mass/Vol] 31.6 g/dL Normal 29.9-35.2 [facility] Comment on above: Performed By: #### U AMIC #### [facility] [address] [address] [address] Manda York MCV (RBC) [Entitic vol] 91.8 fL Normal 81.0-99.0 [facility] Comment on above: Performed By: #### U AMIC #### [facility] [address] [address] [address] Manda York MONO # 0.7 103/ul Normal 0.3-0.8 [facility] Comment on above: Performed By: #### U AMIC #### [facility] [address] [address] [address] Manda York Monocytes/100 WBC (Bld) 5.1 % Normal 1.7-12.0 [facility] Comment on above: Performed By: #### U AMIC #### [facility] [address] [address] [address] Manda York NEUT # 10.6 103/ul Critically high 1.4-6.5 [facility] Comment on above: Performed By: #### U AMIC #### [facility] [address] [place] [address] Dr. Manda York Neutrophils/100 WBC (Bld) 74.6 % Normal 43.0-75.0 [facility] Comment on above: Performed By: #### U AMIC #### [facility] [address] [place] [address] Dr. Manda York Platelet mean volume (Bld) [Entitic vol] 9.4 fL Critically low 9.5-13.5 [facility] Comment on above: Performed By: #### U AMIC #### [facility] [address] [place] [address] Dr. Manda York PLT 307 103/ul Normal 150-450 [facility] Comment on above: Performed By: #### U AMIC #### [facility] [address] [place] [address] Dr. Manda York RBC 4.73 106/ul Normal 4.20-5.40 [facility] Comment on above: Performed By: #### U AMIC #### [facility] [address] [place] [address] Dr. Manda York WBC 14.2 103/ul Critically high 4.0-11.0 [facility] Comment on above: Performed By: #### U AMIC #### [facility] [address] [place] [address] Dr. Manda York FREE T4on 09-24-2022 Free T4 [Mass/Vol] 1.31 ng/dL Normal 0.76-1.46 [facility] Comment on above: Performed By: #### F T4 #### [facility] [address] [address] [address] Manda York GLYCOHEMOGLOBIN A1Con 2022 ADA RECOMMENDATION SEE BELOW Normal [facility] Comment on above: Result Comment: ADA RECOMMENDED LIMIT 4.0 - 6.0 ADA THERAPEUTIC TARGET < 7.0 ACTION SUGGESTED > 7.0 Performed By: #### A 1C #### [facility] [address] [address] [address] Manda York Glucose [Mass/Vol] 120 mg/dL Normal [facility] Comment on above: Performed By: #### A 1C #### [facility] [address] [address] [address] Manda York HbA1c (Bld) [Mass fraction] 5.8 % Normal 4.5-6.2 [facility] Comment on above: Performed By: #### A 1C #### [facility] [address] [place] [address] Dr. Manda York PREG QUANT HCGon 09-24-2022 HCG QUANT <1 Normal [facility] Comment on above: Performed By: #### F T4 #### [facility] [address] [place] [address] Dr. Manda York HCG RANGE SEE BELOW Normal [facility] Comment on above: Result Comment: 5-50 0.2-1 WEEK 50-500 1-2 WEEKS 100-5,000 2-3 WEEKS 500-10,000 3-4 WEEKS 1,000-50,000 4-5 WEEKS 10,000-100,000 5-6 WEEKS 15,000-200,000 6-8 WEEKS 10,000-100,000 2-3 MONTHS Performed By: #### F T4 #### [facility] [address] [place] [address] Dr. Manda York PROTIMEon 09-24-2022 INR Coag (PPP) [Relative time] {INR} [facility] Comment on above: Performed By: #### F T4 #### [facility] [address] [place] [address] Dr. Manda York INR GUIDELINES SEE BELOW Normal [facility] Comment on above: Result Comment: SHERRY RED INR: 2.0 - 3.0 CONDITIONS NOT LISTED BELOW 2.5 - 3.5 FOR PROSTHETIC HEART VALVE REPLACEMENT 2.5 - 3.5 RECURRENT THROMBOSIS Performed By: #### F T4 #### [facility] [address] [place] [address] Dr. Manda York PT Coag (PPP) [Time] 9.6 s Normal 9.0-11.6 [facility] Comment on above: Performed By: #### F T4 #### [facility] [address] [place] [address] Dr. Manda York PTTon 09-24-2022 aPTT Coag (Bld) [Time] 28.2 s Normal 22.3-36.2 [facility] Comment on above: Performed By: #### F T4 #### [facility] [address] [place] [address] Dr. Manda York TSHon 09-24-2022 TSH 0.300 uIU/mL Critically low 0.358-3.740 [facility] Comment on above: Performed By: #### F T4 #### [facility] [address] [place] [address] Dr. Manda York US PELVIS TRANSVAGon 023 [...] by: AURORA SHAIKH Date: 2022-09-24 17:50 Normal [facility] PAP ACOG PANEL 2: 30 to 65on 09-18-2022 . . Normal [facility] Comment on above: Result Comment: Perf ormed at: WB Performed By: #### F T4 #### [facility] [address] [address] [address] Manda York Age Gdln ACOG Testing 30-65 Normal [facility] Comment on above: Performed By: #### F T4 #### [facility] [id number] Manda York DIAGNOSIS: Comment Normal [facility] Comment on above: Result Comment: NEGA TIVE FOR INTRAEPITHELIAL LESION OR MALIGNANCY. Performed at: WB Performed By: #### F T4 #### [facility] [address] [address] [address] Manda York HPV Aptima Negative Normal Negative [facility] Comment on above: Result Comment: This nucleic acid amplification test detects fourteen high-risk HPV types (16,18,31,33,35,39,45,51,52,56,58,59,66,68) without differentiation. Performed at: =G Performed By: #### F T4 #### [facility] [address] [address] [address] Manda York HPV Genotype Reflex Comment Normal [facility] Comment on above: Result Comment: Crit eria not met, HPV Genotype not performed. Performed at: WB Performed By: #### F T4 #### [facility] [id number] Manda York Methodology: Comment Normal [facility] Comment on above: Result Comment: This liquid based ThinPrep(R) pap test was screened with the use of an image guided system. Performed at: WB Performed By: #### F T4 #### [facility] [address] [place], [place] [id number] Dr. Manda York Note: Comment Normal [facility] Comment on above: Result Comment: The [...] WB Performed By: #### F T4 #### [facility] [address] [place], [place] [address] Dr. Manda York Performed by: Comment Normal [facility] Comment on above: Result Comment: Lorena Peters, Branch Service Associate (ASCP) Performed at: WB Performed By: #### F T4 #### [facility] [address] [place], [place] [address] Dr. Manda York Specimen adequacy: Comment Normal [facility] Comment on above: Result Comment: Sati sfactory for evaluation. Endocervical and/or squamous metaplastic cells (endocervical component) are present. Performed at: WB Performed By: #### F T4 #### [facility] [address] [address] [address] Manda York Cytology Cervical or vaginal smear or scraping studyOrdered By: Hazel Torres on 09-10-2022 [facility] MG MAMM SCREEN 3D SELENE CADon 09-01-2022 MG MAMM SCREEN 3D SELENE CAD Patient: ARIADNA HALEY Exam Date: 09/01/2022 : 1980 Gender:F Ordering : DR MANUEL FERRIS . Admission #: [id number] Family : Order #: [id number] CLICK HERE TO VIEW EXAM RADIOLOGY REPORT [...] stomach cancer at age 56. LOCATION: [facility] BREAST COMPOSITION: Scattered areas fibroglandular [...] M.D. on 09/02/2022 at 12:32 Normal [facility] MRI KNEE RT WO CONon 11-09-2 [...] MANUEL GOMEZ Date: 2022-04-01 08:24 Normal [facility] PNEUMOCOCCAL IGG ABS, 23 SER OTYPESon 03-21-2022 Pneumococcal Interpretation See Note [facility] S. pneumoniae 1 IgG (S) [Mass/Vol] 0.27 ug/mL [facility] S. pneumoniae 12 IgG (S) [Mass/Vol] 0.08 ug/mL [facility] S. pneumoniae 14 IgG (S) [Mass/Vol] 0.19 ug/mL [facility] S. pneumoniae 17 IgG (S) [Mass/Vol] 1.72 ug/mL [facility] S. pneumoniae 19 IgG (S) [Mass/Vol] 1.52 ug/mL [facility] S. pneumoniae 2 IgG (S) [Mass/Vol] 0.44 ug/mL [facility] S. pneumoniae 20 IgG (S) [Mass/Vol] 1.53 ug/mL [facility] S. pneumoniae 22 IgG (S) [Mass/Vol] 0.99 ug/mL [facility] S. pneumoniae 23 IgG (S) [Mass/Vol] 0.14 ug/mL [facility] S. pneumoniae 3 IgG (S) [Mass/Vol] 0.36 ug/mL [facility] S. pneumoniae 34 IgG (S) [Mass/Vol] 5.77 ug/mL [facility] S. pneumoniae 4 IgG (S) [Mass/Vol] 0.06 ug/mL [facility] S. pneumoniae 43 IgG (S) [Mass/Vol] 0.93 ug/mL [facility] S. pneumoniae 5 IgG (S) [Mass/Vol] 0.89 ug/mL [facility] S. pneumoniae 8 IgG (S) [Mass/Vol] 0.58 ug/mL [facility] S. pneumoniae 9 IgG (S) [Mass/Vol] 0.4 ug/mL [facility] S. pneumoniae Syrian type 15B IgG (S) [Mass/Vol] 8.27 ug/mL [facility] S. pneumoniae Syrian type 18C IgG (S) [Mass/Vol] 0.39 ug/mL [facility] S. pneumoniae Syrian type 19A IgG (S) [Mass/Vol] 17.72 ug/mL [facility] S. pneumoniae Syrian type 33F IgG (S) [Mass/Vol] 3.04 ug/mL [facility] S. pneumoniae Syrian type 6B IgG (S) [Mass/Vol] 0.82 ug/mL [facility] S. pneumoniae Syrian type 7F IgG (S) [Mass/Vol] 0.34 ug/mL [facility] S. pneumoniae Syrian type 9V IgG (S) [Mass/Vol] 0.78 ug/mL [facility] XR KNEE RT 4V [...] KRISTINA GARRETT Date: 2022-03-21 16:47 Normal [facility] DIPHTHER/TETANUS ABon 2021 C. diphtheriae IgG Qn (S) 0.1 IU/mL [facility] C. tetani toxoid IgG IA Qn 1 IU/mL [facility] IGA BLDon 03-18-2022 IgA [Mass/Vol] 182 mg/dL 70 - 400 mg/dL [facility] IGE BLDon 03-18-2022 IgE Qn 12.3 kU/l <114.0 kU/l [facility] IGGon 03-18-2022 IgG [Mass/Vol] 618 mg/dL Low 700 - 1,600 mg/dL [facility] [facility]-18-2022 IgM [Mass/Vol] 514 mg/dL High 40 - 230 mg/dL [facility] Immunodeficiency panel FC (B ld)on 03-18-2022 CD3 cells (Bld) [#/Vol] 2841 cells/uL High 958 - 2,388 cells/uL [facility] CD3 cells/100 cells (Bld) 81 % 60 - 89 % [facility] CD3+CD4+ (T4 helper) cells (Bld) [#/Vol] 1621 cells/uL 533 - 1,674 cells/uL [facility] CD3+CD4+ (T4 helper) cells/100 cells (Bld) 46 % 34 - 61 % [facility] CD3+CD4+ (T4 helper) cells/CD3+CD8+ (T8 suppressor cells) cells (Bld) [# ratio] 1.55 % 1.10 - 3.25 [facility] CD3+CD8+ (T8 suppressor cells) cells (Bld) [#/Vol] 1049 cells/uL High 175 - 958 cells/uL [facility] CD3+CD8+ (T8 suppressor cells) cells/100 cells (Bld) 30 % 10 - 41 % [facility] CD3-CD16+CD56+ (Natural killer) cells (Bld) [#/Vol] 193 cells/uL 102 - 565 cells/uL [facility] CD3-CD16+CD56+ (Natural killer) cells/100 cells (Bld) 5 % 5 - 25 % [facility] CD3-CD19+ cells (Bld) [#/Vol] 475 cells/uL 75 - 660 cells/uL [facility] CD3-CD19+ cells/100 cells (Bld) 13 % 5 - 22 % [facility] CBC W Auto Differential pane l (Bld)on 03-17-2022 Basophils (Bld) [#/Vol] 0.07 10*3/uL <0.11 k/uL [facility] Basophils/100 WBC (Bld) 0.6 % [facility] Differential cell count method Nom (Bld) Auto [facility] Eosinophils (Bld) [#/Vol] 0.18 10*3/uL <0.46 k/uL [facility] Eosinophils/100 WBC (Bld) 1.6 % [facility] Erythrocyte distribution width (RBC) [Ratio] 14.6 % 11.5 - 15.0 % [facility] Hematocrit (Bld) [Volume fraction] 40.5 % 36.0 - 46.0 % [facility] Hemoglobin (Bld) [Mass/Vol] 13.0 g/dL 11.5 - 15.5 g/dL [facility] Immature granulocytes (Bld) [#/Vol] 0.06 10*3/uL <0.10 k/uL [facility] Immature granulocytes/100 WBC (Bld) 0.5 % [facility] Lymphocytes (Bld) [#/Vol] 2.97 10*3/uL 1.00 - 4.00 k/uL [facility] Lymphocytes/100 WBC (Bld) 26.9 % [facility] MCH (RBC) [Entitic mass] 28.4 pg 26.0 - 34.0 pg [facility] MCHC (RBC) [Mass/Vol] 32.1 g/dL 30.5 - 36.0 g/dL [facility] MCV (RBC) [Entitic vol] 88.4 fL 80.0 - 100.0 fL [facility] Monocytes (Bld) [#/Vol] 0.79 10*3/uL <0.87 k/uL [facility] Monocytes/100 WBC (Bld) 7.2 % [facility] Neutrophils (Bld) [#/Vol] 6.97 10*3/uL 1.45 - 7.50 k/uL [facility] Neutrophils/100 WBC (Bld) 63.2 % [facility] Nucleated RBC (Bld) [#/Vol] <0.01 k/uL [facility] Nucleated RBC/100 WBC (Bld) [Ratio] 0.0 /100 WBC [facility] Platelet mean volume (Bld) [Entitic vol] 9.9 fL 9.0 - 12.7 fL [facility] Platelets (Bld) [#/Vol] 314 10*3/uL 150 - 400 k/uL [facility] RBC (Bld) [#/Vol] 4.58 10*6/uL 3.90 - 5.2 0 m/uL [facility] WBC (Bld) [#/Vol] 11.04 10*3/uL High 3.70 - 11 .00 k/uL [facility] ECHOCARDIO M/2D COMPLETEon 1 ECHOCARDIO M/2D COMPLETE Patient: ARIADNA HALEY Exam Date: 03/12/2022 : 1980 Gender:F Ordering : DR MANUEL FERRIS . Admission #: [id number] Family : Order #: [id number] CLICK HERE TO VIEW EXAM ECHOCARDIOGRAM REPORT [...] M.D. on 03/16/2022 at 16:47 Normal [facility] INSULINon 03-11-2022 Insulin 17.8 uIU/mL Normal 2.6-24.9 [facility] Comment on above: Performed By: #### C BC #### [facility] [address] [place] [address] Dr. Manda York CBC AUTO DIFFon 03-09-2022 BASO # 0.1 103/ul Normal 0.0-0.1 [facility] Comment on above: Performed By: #### C BC #### [facility] [address] [place] [address] Dr. Manda York Basophils/100 WBC (Bld) 0.4 % Normal 0.2-2.0 [facility] Comment on above: Performed By: #### C BC #### [facility] [address] [place] [address] Dr. Manda York EO # 0.2 103/ul Normal 0.0-0.7 [facility] Comment on above: Performed By: #### C BC #### [facility] [address] [place] [address] Dr. Manda York Eosinophils/100 WBC (Bld) 1.2 % Normal 0.9-7.0 [facility] Comment on above: Performed By: #### C BC #### [facility] [address] [place] [address] Dr. Manda York Erythrocyte distribution width (RBC) [Ratio] 14.6 % Normal 11.0-15.0 [facility] Comment on above: Performed By: #### C BC #### [facility] [address] [place] [address] Dr. Manda York Hematocrit (Bld) [Volume fraction] 39.2 % Normal 36.0-48.0 [facility] Comment on above: Performed By: #### C BC #### [facility] [address] [place] [address] Dr. Manda York Hemoglobin (Bld) [Mass/Vol] 12.7 g/dL Normal 12.0-16.0 [facility] Comment on above: Performed By: #### C BC #### [facility] [address] [place] [address] Dr. Manda York IG # 0.06 10e3/ul Critically high 0.00-0.03 [facility] Comment on above: Performed By: #### C BC #### [facility] [address] [place] [address] Dr. Manda York IG % 0.5 % Normal 0.0-0.5 [facility] Comment on above: Performed By: #### C BC #### [facility] [address] [place] [address] Dr. Manda York LYMPH # 3.7 103/ul Normal 1.2-3.8 [facility] Comment on above: Performed By: #### C BC #### [facility] [address] [place] [address] Dr. Manda York Lymphocytes/100 WBC (Bld) 31.0 % Normal 20.5-60.0 [facility] Comment on above: Performed By: #### C BC #### [facility] [address] [place] [address] Dr. Manda York MANUAL DIFF REQ NO Normal [facility] Comment on above: Performed By: #### C BC #### [facility] [address] [place] [address] Dr. Manda York MCH (RBC) [Entitic mass] 28.9 pg Normal 26.7-34.0 [facility] Comment on above: Performed By: #### C BC #### [facility] [address] [place] [address] Dr. Manda York MCHC (RBC) [Mass/Vol] 32.4 g/dL Normal 29.9-35.2 [facility] Comment on above: Performed By: #### C BC #### [facility] [address] [place] [address] Dr. Manda York MCV (RBC) [Entitic vol] 89.1 fL Normal 81.0-99.0 [facility] Comment on above: Performed By: #### C BC #### [facility] [address] [place] [address] Dr. Manda York MONO # 0.7 103/ul Normal 0.3-0.8 [facility] Comment on above: Performed By: #### C BC #### [facility] [address] [place] [address] Dr. Manda York Monocytes/100 WBC (Bld) 5.8 % Normal 1.7-12.0 [facility] Comment on above: Performed By: #### C BC #### [facility] [address] [place] [address] Dr. Manda York NEUT # 7.3 103/ul Critically high 1.4-6.5 [facility] Comment on above: Performed By: #### C BC #### [facility] [address] [place] [address] Dr. Manda York Neutrophils/100 WBC (Bld) 61.1 % Normal 43.0-75.0 [facility] Comment on above: Performed By: #### C BC #### [facility] [address] [address] [address] Manda York Platelet mean volume (Bld) [Entitic vol] 9.7 fL Normal 9.5-13.5 [facility] Comment on above: Performed By: #### C BC #### [facility] [address] [address] [address] Manda York PLT 297 103/ul Normal 150-450 [facility] Comment on above: Performed By: #### C BC #### [facility] [address] [address] [address] Manda York RBC 4.40 106/ul Normal 4.20-5.40 [facility] Comment on above: Performed By: #### C BC #### [facility] [address] [place] [address] Dr. Manda York WBC 12.0 103/ul Critically high 4.0-11.0 [facility] Comment on above: Performed By: #### C BC #### [facility] [address] [place] [address] Dr. Manda York FREE THYROXINE INDEX T7on FTI 3.81 Normal 1.30-4.50 [facility] Comment on above: Performed By: #### U AMIC #### [facility] [address] [place] [address] Dr. Manda York T3U 34.0 % Normal 30.0-39.0 [facility] Comment on above: Performed By: #### U AMIC #### [facility] [address] [place] [address] Dr. Manda York T4 [Mass/Vol] 11.20 ug/dL Normal 4.80-13.90 [facility] Comment on above: Performed By: #### U AMIC #### [facility] [address] [place] [address] Dr. Manda York GLYCOHEMOGLOBIN A1Con 2021 ADA RECOMMENDATION SEE BELOW Normal [facility] Comment on above: Result Comment: ADA RECOMMENDED LIMIT 4.0 - 6.0 ADA THERAPEUTIC TARGET < 7.0 ACTION SUGGESTED > 7.0 Performed By: #### S LUIGI MELO #### [facility] [address] [address] [address] Manda York Glucose [Mass/Vol] 117 mg/dL Normal [facility] Comment on above: Performed By: #### S LEANN MELOC #### [facility] [address] [address] [address] Manda York HbA1c (Bld) [Mass fraction] 5.7 % Normal 4.5-6.2 [facility] Comment on above: Performed By: #### S LEANN MELOC #### [facility] [address] [address] [address] Manda York IRONon 03-09-2022 Iron [Mass/Vol] 61.0 ug/dL Normal 50.0-170.0 [facility] Comment on above: Performed By: #### C BC #### [facility] [address] [place] [address] Dr. Manda York LIPID PROFILEon 03-09-2022 CHOL-HDL RATIO NORM SEE BELOW Normal [facility] Comment on above: Result Comment: 3.3 - 4.4 LOW RISK 4.4 - 7.1 AVERAGE RISK 7.1 - 11.0 MODERATE RISK >11.0 HIGH RISK Performed By: #### U AMIC #### [facility] [address] [place] [address] Dr. Manda York Cholesterol [Mass/Vol] 260 mg/dL Critically high <=200 [facility] Comment on above: Performed By: #### U AMIC #### [facility] [address] [address] [address] Manda York Cholesterol in HDL [Mass/Vol] 38 mg/dL Critically low 40-60 [facility] Comment on above: Performed By: #### U AMIC #### [facility] [address] [address] [address] Manda York Cholesterol in LDL [Mass/Vol] 170.8 mg/dL Normal [facility] Comment on above: Performed By: #### U AMIC #### [facility] [address] [address] [address] Manda York Cholesterol.total/Chol esterol in HDL [Mass ratio] 6.8 {ratio} Normal [facility] Comment on above: Performed By: #### U AMIC #### [facility] [address] [address] [address] Manda York HDL NORMAL > or = 60 mg/dl - LO W CARDIOVASCULAR RISK <40 mg/dl - HIGH CARDIOVASCULAR RISK Normal [facility] Comment on above: Performed By: #### U AMIC #### [facility] [address] [address] [address] Manda York LDL CALC NORMAL SEE BELOW Normal [facility] Comment on above: Result Comment: <100 mg/dl OPTIMAL 100 - 129 mg/dl NEAR OR ABOVE OPTIMAL 130 - 159 mg/dl BORDERLINE HIGH 160 - 189 mg/dl HIGH >190 mg/dl VERY HIGH Performed By: #### U AMIC #### [facility] [address] [address] [address] Manda York Triglyceride [Mass/Vol] 256 mg/dL Critically high <=150 [facility] Comment on above: Performed By: #### U AMIC #### [facility] [address] [address] [address] Manda York VLDL CALC 51.2 mg/dL Normal [facility] Comment on above: Performed By: #### U AMIC #### [facility] [address] [address] [address] Manda York PROF 14(COMP METB)on 022 Albumin [Mass/Vol] 3.8 g/dL Normal 3.4-5.0 [facility] Comment on above: Performed By: #### U AMIC #### [facility] [id number] Manda York Albumin/Globulin [Mass ratio] 1.0 {ratio} Normal [facility] Comment on above: Performed By: #### U AMIC #### [facility] [address] [address] [address] Manda York ALP [Catalytic activity/Vol] 66 U/L Normal 46-116 [facility] Comment on above: Performed By: #### U AMIC #### [facility] [address] [address] [address] Manda York ALT [Catalytic activity/Vol] 27 U/L Normal 14-59 [facility] Comment on above: Performed By: #### U AMIC #### [facility] [address] [address] [address] Manda York Anion gap [Moles/Vol] 11.8 mmol/L Normal [facility] Comment on above: Performed By: #### U AMIC #### [facility] [address] [address] [address] Manda York AST [Catalytic activity/Vol] 9 U/L Critically low 15-37 [facility] Comment on above: Performed By: #### U AMIC #### [facility] [address] [address] [address] Manda York Bilirubin [Mass/Vol] 0.2 mg/dL Normal 0.2-1.0 [facility] Comment on above: Performed By: #### U AMIC #### [facility] [address] [address] [address] Manda York Calcium [Mass/Vol] 9.1 mg/dL Normal 8.5-10.1 [facility] Comment on above: Performed By: #### U AMIC #### [facility] [address] [address] [address] Manda York Chloride [Moles/Vol] 101 mmol/L Normal 98-107 [facility] Comment on above: Performed By: #### U AMIC #### [facility] [address] [address] [address] Manda York CO2 [Moles/Vol] 26.1 mmol/L Normal 21.0-32.0 [facility] Comment on above: Performed By: #### U AMIC #### [facility] [address] [address] [address] Manda York Creatinine [Mass/Vol] 0.80 mg/dL Normal 0.55-1.02 [facility] Comment on above: Performed By: #### U AMIC #### [facility] [address] [address] [address] Manda York EGFR-AF SAO TOMEAN >60 Normal >=60 [facility] Comment on above: Performed By: #### U AMIC #### [facility] [address] [address] [address] Manda York EGFR-NON AF SAO TOMEAN >60 Normal >=60 [facility] Comment on above: Performed By: #### U AMIC #### [facility] [address] [address] [address] Manda York Globulin (S) [Mass/Vol] 3.8 g/dL Normal [facility] Comment on above: Performed By: #### U AMIC #### [facility] [address] [address] [address] Manda York Glucose [Mass/Vol] 93 mg/dL Normal 74-106 [facility] Comment on above: Performed By: #### U AMIC #### [facility] [address] [address] [address] Manda York Potassium [Moles/Vol] 3.9 mmol/L Normal 3.5-5.1 [facility] Comment on above: Performed By: #### U AMIC #### [facility] [address] [address] [address] Manda York Protein [Mass/Vol] 7.6 g/dL Normal 6.4-8.2 [facility] Comment on above: Performed By: #### U AMIC #### [facility] [address] [address] [address] Manda York Sodium [Moles/Vol] 135 mmol/L Critically low 136-145 [facility] Comment on above: Performed By: #### U AMIC #### [facility] [address] [address] [address] Manda York Urea nitrogen [Mass/Vol] 10.0 mg/dL Normal 7.0-18.0 [facility] Comment on above: Performed By: #### U AMIC #### [facility] [address] [address] [address] Manda York Urea nitrogen/Creatinine [Mass ratio] 12.5 mg/mg Normal [facility] Comment on above: Performed By: #### U AMIC #### [facility] [address] [address] [address] Manda York TSHon 03-09-2022 TSH 0.610 uIU/mL Normal 0.358-3.740 [facility] Comment on above: Performed By: #### U AMIC #### [facility] [address] [address] [address] Manda York B2 MICROGLOBULIN Bon 022 Fwmy-7-Mdexdikmplptv [Mass/Vol] 1.8 ug/mL 0.8 - 2.4 mg/L [facility] FERRITIN BLDon 03-05-2022 Ferritin [Mass/Vol] 33.2 ng/mL 14.7 - 2 05.1 ng/mL [facility] FOLATE SERUMon 03-05-2022 Folate [Mass/Vol] 6.6 ng/mL >4.7 ng/mL [facility] Iron and Iron binding capaci ty panelon 03-05-2022 Iron [Mass/Vol] 49 ug/dL 41 - 186 ug/dL [facility] Iron binding capacity [Mass/Vol] 392 ug/dL High 232 - 386 ug/dL [facility] Iron/TIBC [Molar ratio] 12.5 % Low 15.0 - 57.0 % [facility] CBC W Auto Differential pane l (Bld)on 03-04-2022 Basophils (Bld) [#/Vol] 0.07 10*3/uL <0.11 k/uL [facility] Basophils/100 WBC (Bld) 0.6 % [facility] Differential cell count method Nom (Bld) Auto [facility] Eosinophils (Bld) [#/Vol] 0.19 10*3/uL <0.46 k/uL [facility] Eosinophils/100 WBC (Bld) 1.7 % [facility] Erythrocyte distribution width (RBC) [Ratio] 14.7 % 11.5 - 15.0 % [facility] Hematocrit (Bld) [Volume fraction] 40.0 % 36.0 - 46.0 % [facility] Hemoglobin (Bld) [Mass/Vol] 13.0 g/dL 11.5 - 15.5 g/dL [facility] Immature granulocytes (Bld) [#/Vol] 0.07 10*3/uL <0.10 k/uL [facility] Immature granulocytes/100 WBC (Bld) 0.6 % [facility] Lymphocytes (Bld) [#/Vol] 3.31 10*3/uL 1.00 - 4.00 k/uL [facility] Lymphocytes/100 WBC (Bld) 30.2 % [facility] MCH (RBC) [Entitic mass] 28.9 pg 26.0 - 34.0 pg [facility] MCHC (RBC) [Mass/Vol] 32.5 g/dL 30.5 - 36.0 g/dL [facility] MCV (RBC) [Entitic vol] 88.9 fL 80.0 - 100.0 fL [facility] Monocytes (Bld) [#/Vol] 0.70 10*3/uL <0.87 k/uL [facility] Monocytes/100 WBC (Bld) 6.4 % [facility] Neutrophils (Bld) [#/Vol] 6.63 10*3/uL 1.45 - 7.50 k/uL [facility] Neutrophils/100 WBC (Bld) 60.5 % [facility] Nucleated RBC (Bld) [#/Vol] <0.01 k/uL [facility] Nucleated RBC/100 WBC (Bld) [Ratio] 0.0 /100 WBC [facility] Platelet mean volume (Bld) [Entitic vol] 9.6 fL 9.0 - 12.7 fL [facility] Platelets (Bld) [#/Vol] 355 10*3/uL 150 - 400 k/uL [facility] RBC (Bld) [#/Vol] 4.50 10*6/uL 3.90 - 5.2 0 m/uL [facility] WBC (Bld) [#/Vol] 10.97 10*3/uL 3.70 - 11 .00 k/uL [facility] Calcium.ionized [Moles/Vol]o n 03-04-2022 Calcium.ionized (Bld) [Mass/Vol] 1.26 mmol/L 1.08 - 1.30 mmol/L [facility] Calcium.ionized adjusted to pH 7.4 (Bld) [Moles/Vol] 1.25 mmol/L 1.08 - 1.30 mmol/L [facility] Comprehensive metabolic 2000 panelon 03-04-2022 Albumin [Mass/Vol] 4.3 g/dL 3.9 - 4.9 g/dL [facility] ALP [Catalytic activity/Vol] 70 U/L 34 - 123 U/L [facility] ALT [Catalytic activity/Vol] 26 U/L 7 - 38 U/L [facility] Anion gap [Moles/Vol] 7 mmol/L Low 9 - 18 mmol/L [facility] AST [Catalytic activity/Vol] 12 U/L Low 13 - 35 U/L [facility] Bilirubin [Mass/Vol] 0.2 mg/dL 0.2 - 1 .3 mg/dL [facility] Calcium [Mass/Vol] 9.3 mg/dL 8.5 - 10. 2 mg/dL [facility] Chloride [Moles/Vol] 103 mmol/L 97 - 10 5 mmol/L [facility] CO2 [Moles/Vol] 28 mmol/L 22 - 30 mmol/L [facility] Creatinine [Mass/Vol] 0.69 mg/dL 0.58 - 0.96 mg/dL [facility] Estimated Glomerular Filtration Rate 112 mL/min/1.73m >=60 mL/min/1.73m [facility] Glucose [Mass/Vol] 100 mg/dL High 74 - 99 mg/dL [facility] Potassium [Moles/Vol] 3.9 mmol/L 3.7 - 5.1 mmol/L [facility] Protein [Mass/Vol] 7.0 g/dL 6.3 - 8.0 g/dL [facility] Sodium [Moles/Vol] 138 mmol/L 136 - 144 mmol/L [facility] Urea nitrogen [Mass/Vol] 12 mg/dL 7 - 21 mg/dL [facility] LD LACTATE DEHYDROon 022 LDH [Catalytic activity/Vol] 135 U/L 135 - 214 U/L [facility] PHOSPHORUS INORGANICon 03-04 Phosphate [Mass/Vol] 3.2 mg/dL 2.7 - 4 .8 mg/dL [facility] URIC ACID BLOODon 03-04-2022 Urate [Mass/Vol] 5.2 mg/dL 2.5 - 6.6 mg/dL [facility] IMMUNOGLOBULINS IGA/IGM/IGG/ IGE QUANTITAon 02-20-2022 Immunoglobulin A, Qn, Serum 189 mg/dL Normal 87-352 [facility] Comment on above: Result Comment: Perf ormed at: CB Performed By: #### LEANN PATRICKC #### [facility] [address] [address] [address] Manda York Immunoglobulin E, Total 10 IU/mL Normal 6-495 [facility] Comment on above: Result Comment: Perf ormed at: BN Performed By: #### LEANN PATRICKC #### [facility] [address] [address] [address] Manda York Immunoglobulin G, Qn, Serum 598 mg/dL Normal 586-1602 [facility] Comment on above: Result Comment: Perf ormed at: CB Performed By: #### LEANN PATRICKC #### [facility] [address] [address] [address] Manda York Immunoglobulin M, Qn, Serum 493 mg/dL Critically high 26-217 [facility] Comment on above: Result Comment: Perf ormed at: CB Performed By: #### LEANN PATRICKC #### [facility] [address] [address] [address] Manda York CHRISTIAN by IFAon 02-19-2022 Antinuclear Antibodies, IFA Negative Normal [facility] Comment on above: Result Comment: Nega tive <1:80 Borderline 1:80 Positive >1:80 ICAP nomenclature: AC-0 For more information about Hep-2 cell patterns use ANApatterns.org, the official website for the International Consensus on Antinuclear Antibody (CHRISTIAN) Patterns (ICAP). Performed By: #### S LEANN MELOC #### [facility] [address] [address] [address] Manda York THYROID ANTIBODIESon 022 Thyroglobulin Antibody <1.0 Normal 0.0-0.9 [facility] Comment on above: Result Comment: Thyr oglobulin Antibody measured by [employer] Methodology Performed By: #### F T4 #### [facility] [address] [address] [address] Manda York Thyroid Peroxidase (TPO) Ab <8 Normal 0-34 [facility] Comment on above: Performed By: #### F T4 #### [facility] [address] [address] [address] Manda York PROTEIN ELECTROPHERESISon Albumin [Mass/Vol] 3.2 g/dL Normal 2.9-4.4 [facility] Comment on above: Performed By: #### F T4 #### [facility] [address] [place] [address] Dr. Manda York Albumin/Globulin [Mass ratio] 1.0 {ratio} Normal 0.7-1.7 [facility] Comment on above: Performed By: #### F T4 #### [facility] [address] [place] [address] Dr. Manda York Jgyqj-2-Zykhcczo 0.2 g/dL Normal 0.0-0.4 [facility] Comment on above: Performed By: #### F T4 #### [facility] [address] [place] [address] Dr. Manda York Ovfjw-7-Kiwijypt 0.9 g/dL Normal 0.4-1.0 [facility] Comment on above: Performed By: #### F T4 #### [facility] [address] [place] [address] Dr. Manda York Beta Globulin 1.2 g/dL Normal 0.7-1.3 [facility] Comment on above: Performed By: #### F T4 #### [facility] [address] [place] [address] Dr. Manda York Gamma Globulin 0.9 g/dL Normal 0.4-1.8 [facility] Comment on above: Performed By: #### F T4 #### [facility] [address] [place] [address] Dr. Manda York Globulin (S) [Mass/Vol] 3.2 g/dL Normal 2.2-3.9 [facility] Comment on above: Performed By: #### F T4 #### [facility] [address] [place] [address] Dr. Manda York M-Jose De Jesus Not Observed Normal Not Observed [facility] Comment on above: Performed By: #### F T4 #### [facility] [address] [address] [address] Manda York PDF . Normal [facility] Comment on above: Performed By: #### F T4 #### [facility] [address] [address] [address] Manda York Please note: Comment Normal [facility] Comment on above: Result Comment: Prot ein electrophoresis scan will follow via computer, mail, or manager reliability delivery. Performed By: #### F T4 #### [facility] [address] [place] [address] Dr. Manda York Protein [Mass/Vol] 6.4 g/dL Normal 6.0-8.5 [facility] Comment on above: Performed By: #### F T4 #### [facility] [address] [place] [address] Dr. Manda York SLE PROFILE Aon 02-16-2022 Anti-DNA (DS) Ab Qn 9 IU/mL Normal 0-9 [facility] Comment on above: Result Comment: Nega tive <5 Equivocal 5 - 9 Positive >9 Performed By: #### S LEANN MELOC #### [facility] [address] [place] [address] Dr. Manda York Antichromatin Antibodies <0.2 Normal 0.0-0.9 [facility] Comment on above: Performed By: #### S LEANN MELOC #### [facility] [address] [place] [address] Dr. Manda York RA Latex Turbid. <10.0 Normal <14.0 [facility] Comment on above: Performed By: #### S LORIE THYLC #### [facility] [address] [place] [address] Dr. Manda York ELECTRICAL SOFTWARE ENGINEER Antibodies <0.2 Normal 0.0-0.9 [facility] Comment on above: Performed By: #### S LUIGI MELO #### [facility] [address] [place] [address] Dr. Manda York Sjogren'lucinda Anti-SS-A <0.2 Normal 0.0-0.9 [facility] Comment on above: Performed By: #### S LEANN MELOC #### [facility] [address] [place] [address] Dr. Manda Solorzanoogren'lucinda Anti-SS-B <0.2 Normal 0.0-0.9 [facility] Comment on above: Performed By: #### S LEANN MELOC #### [facility] [address] [place] [address] Dr. Manda York Schneider Antibodies <0.2 Normal 0.0-0.9 [facility] Comment on above: Performed By: #### LEANN PATRICKC #### [facility] [address] [place] [address] Dr. Manda York ANTISTREPTOLYSIN O AB (ASO)o n 02-15-2022 Antistreptolysin O Ab 49.6 IU/mL Normal 0.0-200.0 [facility] Comment on above: Performed By: #### A SOAB #### [facility] [address] [place] [address] Dr. Manda York MICROALBUMIN URINEon 022 Albumin, Urine <3.0 Normal Not Estab. [facility] Comment on above: Result Comment: Ve rified by repeat analysis Performed By: #### C BC #### [facility] [address] [place] [address] Dr. Manda York T4, T3U, FTI LABCORPon 02-15 Free Thyroxine Index 2.6 Normal 1.2-4.9 [facility] Comment on above: Performed By: #### S LEANN MELOC #### [facility] [address] [place] [address] Dr. Manda York T3 Uptake 26 % Normal 24-39 [facility] Comment on above: Performed By: #### S LUIGI MELO #### [facility] [address] [address] [address] Manda York T4 [Mass/Vol] 9.9 ug/dL Normal 4.5-12.0 [facility] Comment on above: Performed By: #### S LUIGI MELO #### [facility] [address] [place] [address] Dr. Manda York CBC AUTO DIFFon 02-14-2022 BASO # 0.1 103/ul Normal 0.0-0.1 [facility] Comment on above: Performed By: #### U AMIC #### [facility] [address] [place] [address] Dr. Manda York Basophils/100 WBC (Bld) 0.6 % Normal 0.2-2.0 [facility] Comment on above: Performed By: #### U AMIC #### [facility] [address] [place] [address] Dr. Manda York EO # 0.3 103/ul Normal 0.0-0.7 [facility] Comment on above: Performed By: #### U AMIC #### [facility] [address] [place] [address] Dr. Manda York Eosinophils/100 WBC (Bld) 3.4 % Normal 0.9-7.0 [facility] Comment on above: Performed By: #### U AMIC #### [facility] [address] [place] [address] Dr. Manda York Erythrocyte distribution width (RBC) [Ratio] 14.6 % Normal 11.0-15.0 [facility] Comment on above: Performed By: #### U AMIC #### [facility] [address] [place] [address] Dr. Manda York Hematocrit (Bld) [Volume fraction] 39.1 % Normal 36.0-48.0 [facility] Comment on above: Performed By: #### U AMIC #### [facility] [address] [place] [address] Dr. Manda York Hemoglobin (Bld) [Mass/Vol] 12.4 g/dL Normal 12.0-16.0 [facility] Comment on above: Performed By: #### U AMIC #### [facility] [address] [place] [address] Dr. Manda York IG # 0.03 10e3/ul Normal 0.00-0.03 [facility] Comment on above: Performed By: #### U AMIC #### [facility] [address] [place] [address] Dr. Manda York IG % 0.3 % Normal 0.0-0.5 [facility] Comment on above: Performed By: #### U AMIC #### [facility] [address] [place] [address] Dr. Manda York LYMPH # 3.6 103/ul Normal 1.2-3.8 [facility] Comment on above: Performed By: #### U AMIC #### [facility] [address] [place] [address] Dr. Manda York Lymphocytes/100 WBC (Bld) 39.9 % Normal 20.5-60.0 [facility] Comment on above: Performed By: #### U AMIC #### [facility] [address] [place] [address] Dr. Manda York MANUAL DIFF REQ NO Normal [facility] Comment on above: Performed By: #### U AMIC #### [facility] [address] [place] [address] Dr. Manda York MCH (RBC) [Entitic mass] 28.4 pg Normal 26.7-34.0 [facility] Comment on above: Performed By: #### U AMIC #### [facility] [address] [place] [address] Dr. Manda York MCHC (RBC) [Mass/Vol] 31.7 g/dL Normal 29.9-35.2 [facility] Comment on above: Performed By: #### U AMIC #### [facility] [address] [place] [address] Dr. Manda York MCV (RBC) [Entitic vol] 89.7 fL Normal 81.0-99.0 [facility] Comment on above: Performed By: #### U AMIC #### [facility] [address] [place] [address] Dr. Manda York MONO # 0.7 103/ul Normal 0.3-0.8 [facility] Comment on above: Performed By: #### U AMIC #### [facility] [address] [address] [address] Manda York Monocytes/100 WBC (Bld) 7.3 % Normal 1.7-12.0 [facility] Comment on above: Performed By: #### U AMIC #### [facility] [address] [place] [address] Dr. Manda York NEUT # 4.4 103/ul Normal 1.4-6.5 [facility] Comment on above: Performed By: #### U AMIC #### [facility] [address] [place] [address] Dr. Manda York Neutrophils/100 WBC (Bld) 48.5 % Normal 43.0-75.0 [facility] Comment on above: Performed By: #### U AMIC #### [facility] [address] [place] [address] Dr. Manda York Platelet mean volume (Bld) [Entitic vol] 10.1 fL Normal 9.5-13.5 [facility] Comment on above: Performed By: #### U AMIC #### [facility] [address] [place] [address] Dr. Manda York PLT 310 103/ul Normal 150-450 [facility] Comment on above: Performed By: #### U AMIC #### [facility] [address] [place] [address] Dr. Manda York RBC 4.36 106/ul Normal 4.20-5.40 [facility] Comment on above: Performed By: #### U AMIC #### [facility] [address] [place] [address] Dr. Manda York WBC 9.0 103/ul Normal 4.0-11.0 [facility] Comment on above: Performed By: #### U AMIC #### [facility] [address] [address] [address] Manda York CRPon 02-14-2022 CRP [Mass/Vol] mg/L Normal <=1.0 [facility] Comment on above: Performed By: #### U AMIC #### [facility] [address] [place] [address] Dr. Manda York CULTURE URINEon 02-14-2022 CULTURE URINE Culture Observations : LIGHT GROWTH OF MIXED GENITAL AMBER. NO POTENTIAL PATHOGENS SEEN. Normal [facility] Comment on above: Performed By: #### C BC #### [facility] [address] [place] [address] Dr. Manda York PROF 14(COMP METB)on 022 Albumin [Mass/Vol] 3.5 g/dL Normal 3.4-5.0 [facility] Comment on above: Performed By: #### U AMIC #### [facility] [address] [place] [address] Dr. Manda York Albumin/Globulin [Mass ratio] 1.0 {ratio} Normal [facility] Comment on above: Performed By: #### U AMIC #### [facility] [address] [place] [address] Dr. Manda York ALP [Catalytic activity/Vol] 71 U/L Normal 46-116 [facility] Comment on above: Performed By: #### U AMIC #### [facility] [address] [place] [address] Dr. Manda York ALT [Catalytic activity/Vol] 46 U/L Normal 14-59 [facility] Comment on above: Performed By: #### U AMIC #### [facility] [address] [place] [address] Dr. Manda York Anion gap [Moles/Vol] 11.6 mmol/L Normal [facility] Comment on above: Performed By: #### U AMIC #### [facility] [address] [place] [address] Dr. Manda York AST [Catalytic activity/Vol] 15 U/L Normal 15-37 [facility] Comment on above: Performed By: #### U AMIC #### [facility] [address] [address] [address] Manda York Bilirubin [Mass/Vol] 0.2 mg/dL Normal 0.2-1.0 [facility] Comment on above: Performed By: #### U AMIC #### [facility] [address] [address] [address] Manda York Calcium [Mass/Vol] 8.7 mg/dL Normal 8.5-10.1 [facility] Comment on above: Performed By: #### U AMIC #### [facility] [address] [place] [address] Dr. Manda York Chloride [Moles/Vol] 104 mmol/L Normal 98-107 [facility] Comment on above: Performed By: #### U AMIC #### [facility] [address] [place] [address] Dr. Manda York CO2 [Moles/Vol] 25.1 mmol/L Normal 21.0-32.0 [facility] Comment on above: Performed By: #### U AMIC #### [facility] [address] [place] [address] Dr. Manda York Creatinine [Mass/Vol] 0.80 mg/dL Normal 0.55-1.02 [facility] Comment on above: Performed By: #### U AMIC #### [facility] [address] [place] [address] Dr. Manda York EGFR-AF SAO TOMEAN >60 Normal >=60 [facility] Comment on above: Performed By: #### U AMIC #### [facility] [address] [place] [address] Dr. Manda York EGFR-NON AF SAO TOMEAN >60 Normal >=60 [facility] Comment on above: Performed By: #### U AMIC #### [facility] [address] [place] [address] Dr. Manda York Globulin (S) [Mass/Vol] 3.6 g/dL Normal [facility] Comment on above: Performed By: #### U AMIC #### [facility] [address] [address] [address] Manda York Glucose [Mass/Vol] 92 mg/dL Normal 74-106 [facility] Comment on above: Performed By: #### U AMIC #### [facility] [address] [address] [address] Manda York Potassium [Moles/Vol] 3.7 mmol/L Normal 3.5-5.1 [facility] Comment on above: Performed By: #### U AMIC #### [facility] [address] [address] [address] Manda York Protein [Mass/Vol] 7.1 g/dL Normal 6.4-8.2 [facility] Comment on above: Performed By: #### U AMIC #### [facility] [address] [address] [address] Manda York Sodium [Moles/Vol] 137 mmol/L Normal 136-145 [facility] Comment on above: Performed By: #### U AMIC #### [facility] [address] [address] [address] Manda York Urea nitrogen [Mass/Vol] 17.0 mg/dL Normal 7.0-18.0 [facility] Comment on above: Performed By: #### U AMIC #### [facility] [address] [address] [address] Manda York Urea nitrogen/Creatinine [Mass ratio] 21.2 mg/mg Normal [facility] Comment on above: Performed By: #### U AMIC #### [facility] [address] [address] [address] Manda York [facility] 40 mm/hr Critically high <=20 [facility] Comment on above: Performed By: #### S EDR #### [facility] [address] [address] [address] Manda York TSHon 02-14-2022 TSH 1.155 uIU/mL Normal 0.358-3.740 [facility] Comment on above: Performed By: #### U AMIC #### [facility] [address] [address] [address] Manda York UA RANDOM W/MICROSCOPICon BACTERIA NONE SEEN Normal NONE SEEN [facility] Comment on above: Performed By: #### U AMIC #### [facility] [address] [address] [address] Manda York Bilirubin Ql (U) Negative Normal NEGATIVE [facility] Comment on above: Performed By: #### U AMIC #### [facility] [address] [place] [address] Dr. Manda York CAST NONE SEEN Normal NONE SEEN [facility] Comment on above: Performed By: #### U AMIC #### [facility] [address] [place] [address] Dr. Manda York Clarity (U) CLEAR Normal CLEAR [facility] Comment on above: Performed By: #### U AMIC #### [facility] [address] [place] [address] Dr. Manda York Color (U) LT. YELLOW Normal YELLOW [facility] Comment on above: Performed By: #### U AMIC #### [facility] [address] [address] [address] Manda York Crystals LM Nom (Urine sed) NONE SEEN Normal NONE SEEN [facility] Comment on above: Performed By: #### U AMIC #### [facility] [address] [place] [address] Dr. Manda York Epithelial cells LM Ql (Urine sed) RARE Normal NONE SEEN /RARE [facility] Comment on above: Performed By: #### U AMIC #### [facility] [address] [address] [address] Manda York Glucose Ql (U) Negative Normal NEGATIVE [facility] Comment on above: Performed By: #### U AMIC #### [facility] [address] [place] [address] Dr. Manda York Hemoglobin Ql (U) Negative Normal NEGATIVE [facility] Comment on above: Performed By: #### U AMIC #### [facility] [address] [address] [address] Manda York Ketones Ql (U) Negative Normal NEGATIVE [facility] Comment on above: Performed By: #### U AMIC #### [facility] [address] [address] [address] Manda York LEUKOCYTES Negative Normal NEGATIVE [facility] Comment on above: Performed By: #### U AMIC #### [facility] [address] [address] [address] Manda York MUCOUS NONE SEEN Normal NONE SEEN [facility] Comment on above: Performed By: #### U AMIC #### [facility] [address] [place] [address] Dr. Manda York Nitrite Ql (U) Negative Normal NEGATIVE [facility] Comment on above: Performed By: #### U AMIC #### [facility] [address] [place] [address] Dr. Manda York pH (U) 6.0 [pH] Normal 5-9 [facility] Comment on above: Performed By: #### U AMIC #### [facility] [address] [place] [address] Dr. Manda York RBC NONE SEEN Abnormal 0-2 [facility] Comment on above: Performed By: #### U AMIC #### [facility] [address] [place] [address] Dr. Manda York SPEC GRAVITY 1.005 Normal 1.005-<=1.025 [facility] Comment on above: Performed By: #### U AMIC #### [facility] [address] [place] [address] Dr. Manda York UA PROTEIN Negative Normal NEGATIVE/ TRACE [facility] Comment on above: Performed By: #### U AMIC #### [facility] [address] [place] [address] Dr. Manda York Urobilinogen Qn (U) 0.2 {Carmella'U}/dL Normal 0.2 - 1. 0 [facility] Comment on above: Performed By: #### U AMIC #### [facility] [address] [address] [address] Manda York WBC NONE SEEN Normal NONE SEEN [facility] Comment on above: Performed By: #### U AMIC #### [facility] [address] [place] [address] Dr. Manda Yrok URIC ACID SERUMon 02-14-2022 Urate [Mass/Vol] 4.2 mg/dL Normal 2.6-6.0 [facility] Comment on above: Performed By: #### U AMIC #### [facility] [address] [address] [address] Manda York VITAMIN D 25 OHon 02-14-2022 VIT D 25-OH 22.4 ng/mL Normal [facility] Comment on above: Performed By: #### F T4 #### [facility] [address] [place] [address] Dr. Manda York VIT D RANGES SEE BELOW Normal [facility] Comment on above: Result Comment: <20 ng/mL Vit D deficient 20 - <30 ng/mL Vit D insufficient 30 - 100 ng/mL Vit D sufficient >100 ng/mL Potential Toxicity Performed By: #### F T4 #### [facility] [address] [place] [address] Dr. Manda York METANEPHRINES FRAC. QNT 24 H R URINEon 11-28-2021 Metanephrine, U,24hr Comment Normal 36-209 [facility] Comment on above: Result Comment: No t otal volume submitted. Unable to calculate 24 hour result. Performed By: #### S LEANN MELOC #### [facility] [address] [place] [address] Dr. Manda York Metanephrine, Ur 57 ug/L Normal Undefined [facility] Comment on above: Performed By: #### S LEANN MELOC #### [facility] [address] [place] [address] Dr. Manda York Normetanephr.,U,24h Comment Normal 131-612 [facility] Comment on above: Result Comment: No t otal volume submitted. Unable to calculate 24 hour result. Performed By: #### S LORIE THYLC #### [facility] [address] [address] [address] Manda York Normetanephrine, Ur 116 ug/L Normal Undefined [facility] Comment on above: Performed By: #### S LORIE THYLC #### [facility] [address] [place] [address] Dr. Manda York METANEPHRINES PLASMA FREEon 11-27-2021 Metanephrine, Pl 22.1 pg/mL Normal 0.0-88.0 [facility] Comment on above: Performed By: #### S LORIE THYLC #### [facility] [address] [place] [address] Dr. Manda York Normetanephrine, Pl 50.7 pg/mL Normal 0.0-218.9 [facility] Comment on above: Performed By: #### Lucinda [facility] #### [facility] [address] [place] [address] Dr. Manda York CMV PLASMA PCRon 11-19-2021 CMV Quant DNA PCR (Plasma) Negative Normal Negative [facility] Comment on above: Result Comment: No C MV DNA detected. The quantitative range of this assay is 200 to 1 million IU/mL. Performed By: #### S LORIE THYLC #### [facility] [address] [place] [address] Dr. Manda York log10 CMV Qn DNA Pl UPTCAL Normal [facility] Comment on above: Result Comment: Unab le to calculate result since non-numeric result obtained for component test. Performed By: #### S LORIE THYLC #### [facility] [address] [place] [address] Dr. Manda York CMV AB IGMon 11-18-2021 Cytomegalovirus (CMV) Ab, IgM 43.2 AU/mL Critically high 0.0-29.9 [facility] Comment on above: Result Comment: Nega tive <30.0 Equivocal 30.0 - 34.9 Positive >34.9 A positive result is generally indicative of acute infection, reactivation or persistent IgM production. Performed By: #### S LEANN MELO #### [facility] [address] [place] [address] Dr. Manda York CMV AB, IGGon 11-18-2021 Cytomegalovirus (CMV) Ab, IgG >10.00 Critically high 0.00-0.59 [facility] Comment on above: Result Comment: Nega tive <0.60 Equivocal 0.60 - 0.69 Positive >0.69 Performed By: #### C MVIGG #### [facility] [address] [place] [address] Dr. Manda York CBC AUTO DIFFon 11-17-2021 BASO # 0.1 103/ul Normal 0.0-0.1 [facility] Comment on above: Performed By: #### C BC #### [facility] [address] [place] [address] Dr. Manda York Basophils/100 WBC (Bld) 0.6 % Normal 0.2-2.0 [facility] Comment on above: Performed By: #### C BC #### [facility] [address] [place] [address] Dr. Manda York EO # 0.2 103/ul Normal 0.0-0.7 [facility] Comment on above: Performed By: #### C BC #### [facility] [address] [place] [address] Dr. Manda York Eosinophils/100 WBC (Bld) 2.3 % Normal 0.9-7.0 [facility] Comment on above: Performed By: #### C BC #### [facility] [address] [place] [address] Dr. Manda York Erythrocyte distribution width (RBC) [Ratio] 14.2 % Normal 11.0-15.0 [facility] Comment on above: Performed By: #### C BC #### [facility] [address] [place] [address] Dr. Manda York Hematocrit (Bld) [Volume fraction] 40.2 % Normal 36.0-48.0 [facility] Comment on above: Performed By: #### C BC #### [facility] [address] [place] [address] Dr. Manda York Hemoglobin (Bld) [Mass/Vol] 12.8 g/dL Normal 12.0-16.0 [facility] Comment on above: Performed By: #### C BC #### [facility] [address] [place] [address] Dr. Manda York IG # 0.02 10e3/ul Normal 0.00-0.03 [facility] Comment on above: Performed By: #### C BC #### [facility] [address] [place] [address] Dr. Manda York IG % 0.2 % Normal 0.0-0.5 [facility] Comment on above: Performed By: #### C BC #### [facility] [address] [place] [address] Dr. Manda York LYMPH # 2.5 103/ul Normal 1.2-3.8 [facility] Comment on above: Performed By: #### C BC #### [facility] [address] [place] [address] Dr. Manda York Lymphocytes/100 WBC (Bld) 24.9 % Normal 20.5-60.0 [facility] Comment on above: Performed By: #### C BC #### [facility] [address] [place] [address] Dr. Manda York MANUAL DIFF REQ NO Normal [facility] Comment on above: Performed By: #### C BC #### [facility] [address] [place] [address] Dr. Manda York MCH (RBC) [Entitic mass] 27.9 pg Normal 26.7-34.0 [facility] Comment on above: Performed By: #### C BC #### [facility] [address] [place] [address] Dr. Manda York MCHC (RBC) [Mass/Vol] 31.8 g/dL Normal 29.9-35.2 [facility] Comment on above: Performed By: #### C BC #### [facility] [address] [place] [address] Dr. Manda York MCV (RBC) [Entitic vol] 87.6 fL Normal 81.0-99.0 [facility] Comment on above: Performed By: #### C BC #### [facility] [address] [place] [address] Dr. Mnada York MONO # 0.6 103/ul Normal 0.3-0.8 [facility] Comment on above: Performed By: #### C BC #### [facility] [address] [place] [address] Dr. Manda York Monocytes/100 WBC (Bld) 6.3 % Normal 1.7-12.0 [facility] Comment on above: Performed By: #### C BC #### [facility] [address] [place] [address] Dr. Manda York NEUT # 6.5 103/ul Normal 1.4-6.5 [facility] Comment on above: Performed By: #### C BC #### [facility] [address] [place] [address] Dr. Manda York Neutrophils/100 WBC (Bld) 65.7 % Normal 43.0-75.0 [facility] Comment on above: Performed By: #### C BC #### [facility] [address] [place] [address] Dr. Manda York Platelet mean volume (Bld) [Entitic vol] 10.1 fL Normal 9.5-13.5 [facility] Comment on above: Performed By: #### C BC #### [facility] [address] [place] [address] Dr. Manda York PLT 304 103/ul Normal 150-450 [facility] Comment on above: Performed By: #### C BC #### [facility] [address] [place] [address] Dr. Manda York RBC 4.59 106/ul Normal 4.20-5.40 [facility] Comment on above: Performed By: #### C BC #### [facility] [address] [place] [address] Dr. Manda York WBC 9.9 103/ul Normal 4.0-11.0 [facility] Comment on above: Performed By: #### C BC #### [facility] [address] [place] [address] Dr. Manda York PROF 14(COMP METB)on 022 Albumin [Mass/Vol] 3.7 g/dL Normal 3.4-5.0 [facility] Comment on above: Performed By: #### C BC #### [facility] [address] [place] [address] Dr. Manda York Albumin/Globulin [Mass ratio] 1.0 {ratio} Normal [facility] Comment on above: Performed By: #### C BC #### [facility] [address] [place] [address] Dr. Manda York ALP [Catalytic activity/Vol] 65 U/L Normal 46-116 [facility] Comment on above: Performed By: #### C BC #### [facility] [address] [place] [address] Dr. Manda York ALT [Catalytic activity/Vol] 35 U/L Normal 14-59 [facility] Comment on above: Performed By: #### C BC #### [facility] [address] [place] [address] Dr. Manda York Anion gap [Moles/Vol] 13.0 mmol/L Normal [facility] Comment on above: Performed By: #### C BC #### [facility] [address] [place] [address] Dr. Manda York AST [Catalytic activity/Vol] 12 U/L Critically low 15-37 [facility] Comment on above: Performed By: #### C BC #### [facility] [address] [place] [address] Dr. Manda York Bilirubin [Mass/Vol] 0.2 mg/dL Normal 0.2-1.0 [facility] Comment on above: Performed By: #### C BC #### [facility] [address] [place] [address] Dr. Manda York Calcium [Mass/Vol] 8.7 mg/dL Normal 8.5-10.1 [facility] Comment on above: Performed By: #### C BC #### [facility] [address] [address] [address] Manda York Chloride [Moles/Vol] 104 mmol/L Normal 98-107 [facility] Comment on above: Performed By: #### C BC #### [facility] [address] [address] [address] Manda York CO2 [Moles/Vol] 24.9 mmol/L Normal 21.0-32.0 [facility] Comment on above: Performed By: #### C BC #### [facility] [address] [address] [address] Manda York Creatinine [Mass/Vol] 0.77 mg/dL Normal 0.55-1.02 [facility] Comment on above: Performed By: #### C BC #### [facility] [address] [place] [address] Dr. Manda York EGFR-AF SAO TOMEAN >=60 Normal >=60 [facility] Comment on above: Performed By: #### C BC #### [facility] [address] [place] [address] Dr. Manda York EGFR-NON AF SAO TOMEAN >=60 Normal >=60 [facility] Comment on above: Performed By: #### C BC #### [facility] [address] [place] [address] Dr. Manda York Globulin (S) [Mass/Vol] 3.8 g/dL Normal [facility] Comment on above: Performed By: #### C BC #### [facility] [address] [place] [address] Dr. Manda York Glucose [Mass/Vol] 110 mg/dL Critically high 74-106 [facility] Comment on above: Performed By: #### C BC #### [facility] [address] [place] [address] Dr. Manda York Potassium [Moles/Vol] 3.9 mmol/L Normal 3.5-5.1 [facility] Comment on above: Performed By: #### C BC #### [facility] [address] [address] [address] Manda York Protein [Mass/Vol] 7.5 g/dL Normal 6.4-8.2 [facility] Comment on above: Performed By: #### C BC #### [facility] [address] [address] [address] Manda York Sodium [Moles/Vol] 138 mmol/L Normal 136-145 [facility] Comment on above: Performed By: #### C BC #### [facility] [address] [address] [address] Manda York Urea nitrogen [Mass/Vol] 17.0 mg/dL Normal 7.0-18.0 [facility] Comment on above: Performed By: #### C BC #### [facility] [address] [address] [address] Manda York Urea nitrogen/Creatinine [Mass ratio] 22.1 mg/mg Normal [facility] Comment on above: Performed By: #### C BC #### [facility] [address] [address] [address] Manda York SED RATE [facility] 2021 SED RATE 45 mm/hr Critically high <=20 [facility] Comment on above: Performed By: #### F T4 #### [facility] [address] [address] [address] Manda York CHRISTIAN EIA W/REFLEX 5 BIOMARKER Son 10-06-2021 CHRISTIAN Direct Positive Abnormal Negative [facility] Comment on above: Performed By: #### C BC #### [facility] [address] [address] [address] Manda York Anti-DNA (DS) Ab Qn 10 IU/mL Critically high 0-9 [facility] Comment on above: Result Comment: Nega tive <5 Equivocal 5 - 9 Positive >9 Performed By: #### C BC #### [facility] [address] [address] [address] Manda York [employer]ICAL SOFTWARE ENGINEER Antibodies <0.2 Normal 0.0-0.9 [facility] Comment on above: Performed By: #### C BC #### [facility] [address] [place] [address] [id number] [address] Manda York SEE BELOW: Comment Normal [facility] Comment on above: Result Comment: [...] Sm (anti-Schneider) SLE 15 - 30% --------- [employer] ENGINEER Mixed Connective Tissue Disease 95% (U1 nRNP, SLE 30 - 50% anti-ribonucleoprotein) Polymyositis and/or Dermatomyositis 20% --------- Scl-70 (antiDNA Scleroderma (diffuse) 20 - 35% topoisomerase) Crest 13% --------- Felicita-1 Polymyositis and/or Dermatomyositis 20 - 40% --------- Centromere B Scleroderma - Crest variant 80% Performed By: #### C BC #### [facility] [address] [address] [address] Manda Solorzanoogryaniv's Anti-SS-A <0.2 Normal 0.0-0.9 [facility] Comment on above: Performed By: #### C BC #### [facility] [address] [address] [address] Manda York Sjogryaniv's Anti-SS-B <0.2 Normal 0.0-0.9 [facility] Comment on above: Performed By: #### C BC #### [facility] [address] [address] [address] Manda York Schneider Antibodies <0.2 Normal 0.0-0.9 [facility] Comment on above: Performed By: #### C BC #### [facility] [address] [place] [address] Dr. Manda York CMV PLASMA PCRon 10-06-2021 CMV Quant DNA PCR (Plasma) Negative Normal Negative [facility] Comment on above: Result Comment: No C MV DNA detected. The quantitative range of this assay is 200 to 1 million IU/mL. Performed By: #### C MVPL #### [facility] [address] [place] [address] Dr. Manda York log10 CMV Qn DNA Pl UPTCAL Normal [facility] Comment on above: Result Comment: Unab le to calculate result since non-numeric result obtained for component test. Performed By: #### C MVPL #### [facility] [address] [place] [address] Dr. Manda York CMV AB IGMon 2021 Cytomegalovirus (CMV) Ab, IgM 35.5 AU/mL Critically high 0.0-29.9 [facility] Comment on above: Result Comment: Nega tive <30.0 Equivocal 30.0 - 34.9 Positive >34.9 A positive result is generally indicative of acute infection, reactivation or persistent IgM production. Performed By: #### S LUIGI MELO #### [facility] [address] [place] [address] Dr. Manda York CMV AB, IGGon 2021 Cytomegalovirus (CMV) Ab, IgG 6.30 U/mL Critically high 0.00-0.59 [facility] Comment on above: Result Comment: Nega tive <0.60 Equivocal 0.60 - 0.69 Positive >0.69 Performed By: #### S LEANN MELOC #### [facility] [address] [place] [address] Dr. Manda York CBC AUTO DIFFon 10-03-2021 BASO # 0.1 103/ul Normal 0.0-0.1 [facility] Comment on above: Performed By: #### C BC #### [facility] [address] [place] [address] Dr. Manda York Basophils/100 WBC (Bld) 0.7 % Normal 0.2-2.0 [facility] Comment on above: Performed By: #### C BC #### [facility] [address] [place] [address] Dr. Manda York EO # 0.2 103/ul Normal 0.0-0.7 [facility] Comment on above: Performed By: #### C BC #### [facility] [address] [place] [address] Dr. Manda York Eosinophils/100 WBC (Bld) 2.0 % Normal 0.9-7.0 [facility] Comment on above: Performed By: #### C BC #### [facility] [address] [place] [address] Dr. Manda York Erythrocyte distribution width (RBC) [Ratio] 14.4 % Normal 11.0-15.0 [facility] Comment on above: Performed By: #### C BC #### [facility] [address] [place] [address] Dr. Manda York Hematocrit (Bld) [Volume fraction] 37.2 % Normal 36.0-48.0 [facility] Comment on above: Performed By: #### C BC #### [facility] [address] [place] [address] Dr. Manda York Hemoglobin (Bld) [Mass/Vol] 12.3 g/dL Normal 12.0-16.0 [facility] Comment on above: Performed By: #### C BC #### [facility] [address] [place] [address] Dr. Manda York IG # 0.02 10e3/ul Normal 0.00-0.03 [facility] Comment on above: Performed By: #### C BC #### [facility] [address] [place] [address] Dr. Manda York IG % 0.2 % Normal 0.0-0.5 [facility] Comment on above: Performed By: #### C BC #### [facility] [address] [place] [address] Dr. Manda York LYMPH # 2.1 103/ul Normal 1.2-3.8 [facility] Comment on above: Performed By: #### C BC #### [facility] [address] [place] [address] Dr. Manda York Lymphocytes/100 WBC (Bld) 26.4 % Normal 20.5-60.0 [facility] Comment on above: Performed By: #### C BC #### [facility] [address] [place] [address] Dr. Manda York MANUAL DIFF REQ NO Normal [facility] Comment on above: Performed By: #### C BC #### [facility] [address] [place] [address] Dr. Manda York MCH (RBC) [Entitic mass] 29.2 pg Normal 26.7-34.0 [facility] Comment on above: Performed By: #### C BC #### [facility] [address] [place] [address] Dr. Manda York MCHC (RBC) [Mass/Vol] 33.1 g/dL Normal 29.9-35.2 [facility] Comment on above: Performed By: #### C BC #### [facility] [address] [place] [address] Dr. Manda York MCV (RBC) [Entitic vol] 88.4 fL Normal 81.0-99.0 [facility] Comment on above: Performed By: #### C BC #### [facility] [address] [place] [address] Dr. Manda York MONO # 0.5 103/ul Normal 0.3-0.8 [facility] Comment on above: Performed By: #### C BC #### [facility] [address] [place] [address] Dr. Manda York Monocytes/100 WBC (Bld) 6.7 % Normal 1.7-12.0 [facility] Comment on above: Performed By: #### C BC #### [facility] [address] [place] [address] Dr. Manda York NEUT # 5.2 103/ul Normal 1.4-6.5 [facility] Comment on above: Performed By: #### C BC #### [facility] [address] [address] [address] Manad York Neutrophils/100 WBC (Bld) 64.0 % Normal 43.0-75.0 [facility] Comment on above: Performed By: #### C BC #### [facility] [address] [address] [address] Manda York Platelet mean volume (Bld) [Entitic vol] 10.5 fL Normal 9.5-13.5 [facility] Comment on above: Performed By: #### C BC #### [facility] [address] [address] [address] Manda York PLT 265 103/ul Normal 150-450 [facility] Comment on above: Performed By: #### C BC #### [facility] [address] [place] [address] Dr. Manda York RBC 4.21 106/ul Normal 4.20-5.40 [facility] Comment on above: Performed By: #### C BC #### [facility] [address] [place] [address] Dr. Manda York WBC 8.1 103/ul Normal 4.0-11.0 [facility] Comment on above: Performed By: #### C BC #### [facility] [address] [place] [address] Dr. Manda York CRPon 10-03-2021 CRP [Mass/Vol] mg/L Normal <=1.0 [facility] Comment on above: Performed By: #### F T4 #### [facility] [address] [place] [address] Dr. Manda York SED RATE WESTERGRENon 2021 SED RATE 34 mm/hr Critically high <=20 [facility] Comment on above: Performed By: #### C BC #### [facility] [address] [place] [address] Dr. Manda York CHLORIDE (POC)Ordered By: Jae Holley on 10-07-2020 Chloride [Moles/Vol] 106 mmol/L 98 - 10 7 mmol/L [employer] Work Phone: Catheterization and angiogra phy procedure details panelOrdered By: Jonas Holley on 10-07-2020 Cardiac Diagnostic Report Demographics Patient TERA Torres Date of Study 10/07/2020 Name Date of 1980 Gender Female Age 40 year(s) Race Room [id number]^LEYDI^JONAS Height: 67 inch, 170.18 cm Number Corporate [id number] Weight: 234 pounds, 106.1 kg ID # Patient [id number] BSA: 2.16 m^2 BMI: 36.65 kg/m^2 Acct # MR # [id number] Performing Jonas Holley Physician Referring # Physician [...] Right coronary angiography. Contrast Material: - Isovue 13691 ml Fluoroscopy Time: Diagnostic: 2:12 minutes. Total: [...] assessed as CCS II according to the [place] clinical classification. Hemodynamics Condition: Baseline Room Air Estimated: 246.52Heart Rate: 103 bpm Pressure +-----+ + !Site !Pressure ! +-----+ + !AO !106/ (86) ! +-----+ + !AO !/ (87) ! +-----+ + !AO !112/ (86) ! +-----+ + !LV !126/0 ,1 ! +-----+ + !LV !126/0 ,5 ! +-----+ + Valve Gradients and Areas + +-------- -+---------+--------- + +--------- + + !Valve !Peak !Mean !Area !Index !Flow !Source ! + +-------- -+---------+--------- + +--------- + + !Aortic (more content not included)... [employer] Work Phone: Jr, [facility] Incoming Cardio Results From [facility]/ - 10/07/2020 10:37 AM EDT Cardiac Diagnostic Report Demographics Patient TERA Torres Date of Study 10/07/2020 Name Date of 1980 Gender Female Age 40 year(s) Race Room [id number]^LEYDI^AMADAMAR Height: 67 inch, 170.18 cm Number Corporate [id number] Weight: 234 pounds, 106.1 kg ID # Patient [id number] BSA: 2.16 m^2 BMI: 36.65 kg/m^2 Acct # MR # [id number] Performing Jonas Holley Physician Referring # Physician [...] Right coronary angiography. Contrast Material: - Isovue 51845 ml Fluoroscopy Time: Diagnostic: 2:12 minutes. Total: [...] assessed as CCS II according to the [place] clinical classification. Hemodynamics Condition: Baseline Room Air [...] +--------- + + Shunts Oxygen Values O2 Vpyhldtk208.4O2 Wpdcqdddgll948.52 [employer] Phone: [employer] Phone: [employer] Phone: Creatinine W/GFR Point of Ca reOrdered By: Jonas Holley on 10-07-2020 Creatinine [Mass/Vol] 0.64 mg/dL 0.51 - 1.19 mg/dL [employer] Phone: GFR Non- >60 >60 mL/min [employer] Phone: GFR/1.73 sq M.predicted MDRD (S/P/Bld) [Vol rate/Area] mL/min/{1.73_m2} >60 mL/min [employer] Phone: GFR/1.73 sq M.predicted MDRD (S/P/Bld) [Vol rate/Area] [employer] Phone: Comment on above: Average GFR for 40-4 9 years old: 99 mL/min/1.73sq m Chronic Kidney Disease: <60 mL/min/1.73sq m Kidney failure: <15 mL/min/1.73sq m eGFR calculated using average adult body mass. Additional eGFR calculator available at: http://www.[facility]_crcl_2012.htm Hemoglobin and hematocrit, b loodOrdered By: Jonas Holley on 10-07-2020 Hematocrit (Bld) [Volume fraction] 41 % 36 - 46 % [employer] Phone: Hemoglobin (Bld) [Mass/Vol] 14.0 g/dL 12.0 - 16.0 g/dL [employer] Phone: No Panel InformationOrdered By: Jonas Holley on 10-07-2020 [employer] Phone: POCT GlucoseOrdered By: Anu Holley on 10-07-2020 Glucose [Mass/Vol] 98 mg/dL 74 - 100 mg/dL [employer] Phone: POCT urine pregnancyOrdered By: Jonas Holley on 10-07-2020 Beta HCG ( test) Ql (U) Negative NEGATIVE [employer] Phone: Comment on above: Specimens with hCG l evels near the threshold of the test (25 mIU/mL) may give a negative or indeterminate result. In such cases, another test should be performed with a new specimen in 48-72 hours. If early is suspected clinically in this setting, correlation with quantitative serum b-hCG level is suggested. [employer] Phone: POTASSIUM (POC)Ordered By: Al Holley on 10-07-2020 Potassium [Moles/Vol] 3.8 mmol/L 3.5 - 4.5 mmol/L [employer] Phone: Platelet Counton 10-07-2020 Platelets (Bld) [#/Vol] 299 10*3/uL Normal 138-453 [facility] Comment on above: Performed By: #### P LT #### [facility] [employer] [address] [place] [address] Art Preparator: Rick Serrano MD Platelet countOrdered By: Jae Holley on 10-07-2020 Platelets (Bld) [#/Vol] 299 10*3/uL [employer] Phone: [employer] Phone: SODIUM (POC)Ordered By: Anu Holley on 10-07-2020 Sodium [Moles/Vol] 141 mmol/L 138 - 146 mmol/L [employer] Phone: Coding Summary.on 01-12-2019 Coding Summary. CODING DATE: 01/12/2019 FINAL [facility] STATUS: Home (Routine DC) PAYOR: Medicaid [...] mass index (BMI) 34.0-34.9, adult Z79.899 Other alf (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 However, the narrative phrase printed from the coding software may appear abbreviated, or result in slightly different terminology. Coded By: Luz Judd Date Saved: 01/12/2019 10:25 am [facility] Coding Summary. CODING DATE: 01/12/2019 FINAL [facility] STATUS: Home (Routine DC) PAYOR: Medicaid [...] mass index (BMI) 34.0-34.9, adult Z79.899 Other alf (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 However, the narrative phrase printed from the coding software may appear abbreviated, or result in slightly different terminology. Revised Coded By: Luz Judd Revised Date Saved: 01/12/2019 10:25 am [facility] XR Chest 2 Viewson 9 XR [...] Valenzuela M.D. Transcribed by: BILL Technologist: ZOILA [facility] Auto Diffon 01-11-2019 Basophils/100 WBC (Bld) 0.8 % Normal 0.0-2.0 [facility] Comment on above: Order Comment: Order Added by Discern Expert. Performed By: #### 1 5270296, 4179113, 1281207, 2632049, 26763864, 2819646, 1656403, 4306744, 7324976, 80000454, 8196351 #### [facility] [address] [place] [address] Basophils/Leukocytes Auto (Bld) [Pure # fraction] 0.1 E9/L Normal 0.0-0.2 [facility] Comment on above: Order Comment: Order Added by Discern Expert. Performed By: #### 1 5338088, 5628320, 1453794, 7346835, 51711833, 1582760, 2153615, 3874546, 9451977, 96105180, 7801259 #### [facility] [address] [place] [address] Eosinophils/100 WBC (Bld) 1.9 % Normal 0.0-8.0 [facility] Comment on above: Order Comment: Order Added by Discern Expert. Performed By: #### 1 3281946, 7548649, 5302625, 4475925, 56942352, 4548722, 0784531, 5434510, 5147458, 63727708, 7328851 #### [facility] [address] [place] [address] Eosinophils/Leukocytes Auto (Bld) [Pure # fraction] 0.1 E9/L Normal 0.0-0.5 [facility] Comment on above: Order Comment: Order Added by Discern Expert. Performed By: #### 1 3933710, 3000852, 4805387, 6370827, 74831416, 9117983, 8210597, 7490008, 2533711, 19407094, 1229012 #### [facility] [address] [place] [address] Lymphocytes/100 WBC (Bld) 28.0 % Normal 14.0-50.0 [facility] Comment on above: Order Comment: Order Added by Discern Expert. Performed By: #### 1 4310615, 7852644, 3161666, 1407819, 61088409, 2798161, 9332534, 8314298, 4583821, 27617890, 3850271 #### [facility] [address] [place] [address] Lymphocytes/Leukocytes Auto (Bld) [Pure # fraction] 2.2 E9/L Normal 1.0-4.0 [facility] Comment on above: Order Comment: Order Added by Discern Expert. Performed By: #### 1 7156087, 9764224, 8027079, 3106351, 96288465, 0680968, 3164221, 5457898, 2121119, 60251230, 7656460 #### [facility] [address] [place] [address] Monocytes/100 WBC (Bld) 7.0 % Normal 4.0-14.0 [facility] Comment on above: Order Comment: Order Added by Discern Expert. Performed By: #### 1 1420330, 4212384, 7865683, 2902362, 86990781, 0305278, 2055195, 8458572, 5231448, 95114391, 2813721 #### [facility] [address] [place] [address] Monocytes/Leukocytes Auto (Bld) [Pure # fraction] 0.6 E9/L Normal 0.2-1.0 [facility] Comment on above: Order Comment: Order Added by Discern Expert. Performed By: #### 1 6816623, 1893571, 9267698, 6598548, 41783434, 9091966, 2491693, 9604569, 4542046, 73179592, 3481283 #### [facility] [address] [place] [address] Neutrophils/100 WBC (Bld) 62.3 % Normal 36.0-75.0 [facility] Comment on above: Order Comment: Order Added by Discern Expert. Performed By: #### 1 3353031, 4336275, 1619210, 1726921, 02230519, 0706495, 2135670, 5678858, 0990397, 62607941, 6081724 #### [facility] [address] [place] [address] Neutrophils/Leukocytes Auto (Bld) [Pure # fraction] 4.9 E9/L Normal 2.0-7.5 [facility] Comment on above: Order Comment: Order Added by Discern Expert. Performed By: #### 1 4448057, 3078726, 9155301, 5018324, 24421448, 2578845, 4905554, 8128131, 8649206, 07227435, 5711881 #### [facility] [address] [place] [address] BMPon 01-11-2019 Creatinine [Mass/Vol] 0.7 mg/dL Normal 0.5-1.3 [facility] Comment on above: Performed By: #### 1 3153835, 5874443, 8151063, 8692158, 73011377, 7290170, 2309039, 5776081, 7925379, 58522783, 7827764 #### [facility] [address] [place] [address] Urea nitrogen [Mass/Vol] 11 mg/dL Normal 5-21 [facility] Comment on above: Performed By: #### 1 3297299, 8322147, 4122635, 1381406, 25599910, 6452585, 4429157, 9229143, 9309223, 36478607, 2500211 #### [facility] [address] [place] [address] Urea nitrogen/Creatinine [Mass ratio] 16 No Units Normal 10-20 [facility] Comment on above: Performed By: #### 1 4120675, 9916685, 3935712, 2047955, 80347261, 5277966, 1005566, 3668110, 0410507, 06680483, 2941226 #### [facility] [address] [place] [address] Anion gap [Moles/Vol] 14 mmol/L Normal 6-16 [facility] Comment on above: Performed By: #### 1 2073004, 0277390, 4049567, 2869580, 32857268, 8755719, 4307921, 6689085, 4034965, 87566725, 8598763 #### [facility] [address] [place] [address] Calcium [Mass/Vol] 8.9 mg/dL Normal 8.9-11.1 [facility] Comment on above: Performed By: #### 1 9742204, 6853825, 9249050, 8919553, 82955413, 4483662, 8587179, 9175430, 8787895, 39418122, 6653192 #### [facility] [address] [place] [address] Chloride [Moles/Vol] 107 mmol/L Normal 101-111 [facility] Comment on above: Performed By: #### 1 1655818, 4224837, 7355609, 3744754, 24173754, 3991519, 0399465, 6053768, 8417839, 56477042, 9869144 #### [facility] [address] [place] [address] CO2 [Moles/Vol] 22 mmol/L Normal 21-31 [facility] Comment on above: Performed By: #### 1 3227220, 7211110, 3549963, 7530262, 86188963, 1412923, 3974001, 1219017, 6163203, 66409763, 1359055 #### [facility] [address] [place] [address] Glucose [Mass/Vol] 122 mg/dL Normal 55-199 [facility] Comment on above: Result Comment: If t his glucose result represents a fasting glucose, interpretation should refer to the following reference range: 55-99 mg/dL Performed By: #### 1 1290304, 9191867, 6000751, 4983527, 75902276, 8262454, 7177447, 0013549, 7657932, 75118980, 7074627 #### [facility] [address] [place] [address] Potassium [Moles/Vol] 3.8 mmol/L Normal 3.5-5.3 [facility] Comment on above: Performed By: #### 1 3760864, 6090161, 6769073, 5029242, 73523863, 3820552, 0381937, 8024468, 9523513, 62483128, 9771092 #### [facility] [address] [place] [address] Sodium [Moles/Vol] 139 mmol/L Normal 135-145 [facility] Comment on above: Performed By: #### 1 5236280, 1449512, 6334377, 6083370, 40213076, 3491012, 5131210, 8947005, 4932833, 94569284, 9848526 #### [facility] [address] [place] [address] CBC w/ Auto Diffon 9 Erythrocyte distribution width (RBC) [Ratio] 14.0 % Normal 10.9-14.2 [facility] Comment on above: Performed By: #### 1 5109039, 4279596, 8017683, 1433829, 16828942, 9166158, 9681704, 2776962, 9321324, 32763835, 5747233 #### [facility] [address] [place] [address] Hematocrit (Bld) [Volume fraction] 39.9 % Normal 34.0-46.0 [facility] Comment on above: Performed By: #### 1 6797311, 5377442, 8841309, 3354882, 67131225, 1903687, 3319430, 4347921, 8955416, 23546742, 3657472 #### [facility] [address] [place] [address] Hemoglobin (Bld) [Mass/Vol] 13.5 g/dL Normal 12.0-16.0 [facility] Comment on above: Performed By: #### 1 5300126, 6414177, 0012145, 2027804, 15825043, 0099214, 3022926, 4452466, 9147328, 59869953, 3583196 #### [facility] [address] [place] [address] MCH (RBC) [Entitic mass] 29.4 pg Normal 27.0-34.0 [facility] Comment on above: Performed By: #### 1 4619632, 1378059, 0229653, 7551956, 10302840, 4094599, 3742724, 0490462, 9574171, 09206509, 8078725 #### [facility] [address] [place] [address] MCHC (RBC) [Mass/Vol] 33.7 g/dL Normal 33.3-35.7 [facility] Comment on above: Performed By: #### 1 6955277, 1431780, 0574817, 4568844, 64510854, 8800802, 7360627, 4603735, 0794058, 90718131, 8631114 #### [facility] [address] [place] [address] MCV (RBC) [Entitic vol] 87.4 fL Normal 80.0-100.0 [facility] Comment on above: Performed By: #### 1 3255391, 9264599, 5635049, 3466082, 61978390, 9608951, 4835939, 1638000, 1971723, 14120005, 0442016 #### [facility] [address] [place] [address] Platelet mean volume (Bld) [Entitic vol] 8.5 fL Normal 6.4-10.8 [facility] Comment on above: Performed By: #### 1 5393479, 6526884, 7281863, 3764140, 70135932, 6378549, 4487954, 5369581, 9923186, 67339004, 8609398 #### [facility] [address] [place] [address] Platelets (Bld) [#/Vol] 244.0 E9/L Normal 150.0-500.0 [facility] Comment on above: Performed By: #### 1 2360310, 1930408, 0628872, 0064969, 29269303, 6904609, 2010473, 9074096, 4432030, 34868042, 1146389 #### [facility] [address] [place] [address] RBC (Bld) [#/Vol] 4.6 E12/L Normal 4.3-5.9 [facility] Comment on above: Performed By: #### 1 8601638, 9992682, 8022661, 3914555, 76587426, 8153595, 5749607, 5977023, 8020624, 65862204, 1083107 #### [facility] [address] [place] [address] WBC corrected for nucl RBC Auto (Bld) [#/Vol] 7.9 E9/L Normal 4.0-11.0 [facility] Comment on above: Performed By: #### 1 2228910, 6422692, 7297127, 7695814, 62867626, 3250709, 9183634, 2962607, 9777484, 56182145, 4261136 #### [facility] [address] [place] [address] D-Dimeron 01-11-2019 Fibrin D-dimer FEU (PPP) [Mass/Vol] 265 ng/mL Normal 215-500 [facility] Comment on above: Result Comment: This D-Dimer [...] infections Liver cirrhosis Performed By: #### 1 9913101, 3023452, 0663579, 0895814, 18781647, 9416519, 4006163, 4420043, 7401741, 45268468, 6145496 #### [facility] [address] [place] [address] ED Clinical Summaryon 2018 ED Clinical Summary [address] [place] [id number] ED Clinical Summary Person Information Name: ARIADNA HALEY/NewTommy Age: 38 Years : 1980 12:00 AM Sex: Female Language: Nicaraguan PCP: Charles Nicole DO Marital Status: Single Phone: [phone] Visit Id: Visit Reason: Chest pain; CHEST [...] 01/11/2019 6:42 PM 01/11/2019 6:42 PM ADDRESS: [address] [place] [id number] [facility] DOC NOTES: MEDICAL INFORMATION: Prescriptions Given: PATIENT EDUCATION INFORMATION: Instructions: Smoking Cessation; Chest Pain (Nonspecific) Follow up: With: Address: When: [address] [address] Business (1) Within 2 to 3 days Comments: Return to ED if symptoms worsen DIAGNOSIS: 1:Chest pain Normal [facility] ED Note-Physicianon 01-12-20 ED Note-Physician Basic Information [...] prescription medications Follow-up With When Contact Information [place] Within 2 to 3 days [address] [place] [address]- Business (1) Additional Instructions: Return [...] Lymph Auto: 28 % (01/11/19 16:46:00 EDT) Wetzel Auto: 7 % (01/11/19 16:46:00 EDT) Eos Auto: 1.9 % (01/11/19 16:46:00 EDT) Basophil Auto: 0.8 % (01/11/19 16:46:00 EDT) Neutro Absolute: 4.9 E9/L (01/11/19 16:46:00 EDT) Lymph Absolute: 2.2 E9/L (01/11/19 16:46:00 EDT) Wetzel Absolute: 0.6 E9/L (01/11/19 16:46:00 EDT) Eos [...] By: Orin Browne DO 01/11/2019 15:54:18 Normal [facility] Comment on above: Result Comment: Elec tronically [...] and skin patches. Some may be available upbc-ikc-bnpjxlx and others require a prescription. ? Antidepressant [...] Document Reviewed: 08/18/2012 ExitCare? Patient Information ?2014 Wally. This information is not intended to replace [...] Document Reviewed: 12/13/2008 ExitCare? Patient Information ?2015 [place], [employer]. This information is not intended to replace advice given to you by your health care provider. Make sure you discuss any questions you have with your health care provider. Normal [facility] ED Patient Summaryon 019 ED Patient Summary [address] [place] [id number] Patient Discharge Instructions Person Information Name: ARIADNA HALEY Age: 38 Years Arrival Date: 01/11/2019 3:44 PM Discharge Diagnosis: 1:Chest pain Primary Care Physician: Charlse Nicole DO Provider Information Primary Provider: Orin Browne DO [employer] Specialist:None The exam and treatment you received in the Emergency Department were for an urgent problem and are not intended as complete care. It is important that you follow up with a doctor, nurse practitioner, or physician?s office manager executive assistant for ongoing care. If your symptoms [...] Follow-up Instructions: With: Address: When: Charles Nicole [address] [place] [address] Business (1) Within 2 to 3 days [...] opioids can be used to help relieve mtwkwzdo-fr-ceecsj pain and are often prescribed following a [...] struggling with addiction, tell your health career transition specialist and ask for guidance or call SAMHSA?S National Helpline at 1-456-354-NUDY. o Source: [place] Department of Health and Human Services/Center for Disease Control & Prevention [facility] Medications Given: Medication Dose Route No medications found. Medication Information: Medications to Continue with No Changes Other Medications metformin (metformin 500 mg ER Tab) 250 Milligram By Mouth 2 times a day. Comment: Pharmacy Information: Thank you for choosing [facility] Patient Education Materials: Smoking Cessation Quitting [...] and skin patches. Some may be available baqr-gvk-optsbth and others require a prescription. ? Antidepressant [...] Document Reviewed: 08/18/2012 ExitCare? Patient Information ?2014 Wally. This information is not intended to replace [...] Document Reviewed: 12/13/2008 ExitCare? Patient Information ?2015 [employer], [employer]. This information is not intended to replace advice given to you by your health care provider. Make sure you discuss any questions you have with your health care provider. I, PRINNIER, ARIADNA B , have received the following patient education materials/instruction s and have verbalized understanding: Patient Education Materials: Smoking Cessation; Chest Pain (Nonspecific) Follow-up Instructions: With: Address: When: [address] [address] Business (1) Within 2 to 3 days Comments: Return to ED if symptoms worsen Prescriptions: Patient Signature Date Clinician/Nurse Signature Date 01/11/19 18:42:28 Normal [facility] Progress Note-Nurseon 2018 Progress Note-Nurse Pt explained discharge instructions and voiced understanding. Pt sts she will follow up with her PCP and denies any furthe questions at this time. Normal [facility] Troponin 0 Hr.on 01-11-2019 Troponin I.cardiac [Mass/Vol] ng/mL Normal <=0.03 [facility] Comment on above: Result Comment: New Troponin Assay 10/05/13 KRISHNA MA Cutoff value > or = 0.03 ng/mL in conjunction with clinical conditions of myocardial infarction. (www.escardio.org/guidelines) Performed By: #### 1 0779484, 4404143, 9403071, 6115017, 53960801, 3296313, 7063024, 3935100, 5552193, 05651230, 0622157 #### [facility] [address] [place] [address] eGFRon 01-11-2019 GFR/1.73 sq M predicted among blacks MDRD (S/P/Bld) [Vol rate/Area] mL/min/{1.73_m2} Normal >=59 [facility] Comment on above: Order Comment: Order added by Discern Expert. Result Comment: eGFR is race adjusted. AA=. Performed By: #### 1 3246766, 2429242, 7210028, 4037761, 38113375, 4572945, 7431037, 6165883, 2994849, 78256659, 3767922 #### [facility] [address] [place] [address] GFR/1.73 sq M predicted among non-blacks MDRD (S/P/Bld) [Vol rate/Area] mL/min/{1.73_m2} Normal >=59 [facility] Comment on above: Order Comment: Order added by Discern Expert. Result Comment: Jewel Supervisor anthony kidney disease could be indicated at eGFR's of less than 60 mL/min/1.73m2. Kidney failure is indicated at less than 15 mL/min/1.73m2. Performed By: #### 1 4698110, 1546439, 8701280, 8781954, 46725693, 4623169, 7301459, 7667258, 8192296, 18464150, 0183821 #### [facility] [address] [place] [address] SPINE, LUMBOSACRAL CMPLT(TOOTIE DING)on 12-05-2018 SPINE, LUMBOSACRAL CMPLT(BENDING) Patient Name: ARIADNA HALEY STUDY: SPINE, LUMBOSACRAL; CMPLT(BENDING); 12/05/2018 1:47 pm INDICATION: LUMBAR XR. COMPARISON: None. ACCESSION NUMBER(S): [id number] ORDERING CLINICIAN: KADE RICHARDSON FINDINGS: No lumbar spine fracture. Scattered small endplate osteophytes. Vertebral body and disc space heights are are maintained. 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 No spondylolisthesis. No instability on flexion or extension. IMPRESSION: Degenerative changes of the lumbar spine without instability. Electronically signed by: EARNESTINE MANUEL MD [facility] Coding Summary.on 09-15-2018 Coding Summary. CODING DATE: 09/15/2018 FINAL [facility] STATUS: Home (Routine DC) PAYOR: Medicaid [...] F17.210 Nicotine dependence, cigarettes, uncomplicated Z79.899 Other termite technician (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 However, the narrative phrase printed from the coding software may appear abbreviated, or result in slightly different terminology. Coded By: Luz Judd Date Saved: 09/15/2018 07:15 am Normal [facility] Auto Diffon 09-14-2018 Basophils/100 WBC (Bld) 0.6 % Normal 0.0-2.0 [facility] Comment on above: Order Comment: Order Added by Discern Expert. Performed By: #### 1 8435736, 1694006, 0231941, 0617642, 57496396, 8654806, 7527099, 5744643, 0516142, 88812691, 2897839 #### [facility] [address] [place] [address] Basophils/Leukocytes Auto (Bld) [Pure # fraction] 0.1 E9/L Normal 0.0-0.2 [facility] Comment on above: Order Comment: Order Added by Discern Expert. Performed By: #### 1 6012510, 8820794, 9974726, 8728612, 49802776, 0770335, 7794415, 2033679, 8953656, 07025342, 9471876 #### [facility] [address] [place] [address] Eosinophils/100 WBC (Bld) 2.2 % Normal 0.0-8.0 [facility] Comment on above: Order Comment: Order Added by Discern Expert. Performed By: #### 1 2944830, 3105190, 8384993, 0755446, 09435857, 8529488, 6757715, 5173802, 3879063, 56856214, 2009950 #### [facility] [address] [place] [address] Eosinophils/Leukocytes Auto (Bld) [Pure # fraction] 0.2 E9/L Normal 0.0-0.5 [facility] Comment on above: Order Comment: Order Added by Discern Expert. Performed By: #### 1 8233636, 9968491, 5713546, 7804635, 29491493, 6102804, 3434066, 4544328, 4275598, 15818456, 5271186 #### [facility] [address] [place] [address] Lymphocytes/100 WBC (Bld) 30.6 % Normal 14.0-50.0 [facility] Comment on above: Order Comment: Order Added by Discern Expert. Performed By: #### 1 7168556, 7005814, 2117311, 7559931, 87751618, 4236472, 2413003, 7370402, 2563159, 87212427, 0090347 #### [facility] [address] [place] [address] Lymphocytes/Leukocytes Auto (Bld) [Pure # fraction] 3.0 E9/L Normal 1.0-4.0 [facility] Comment on above: Order Comment: Order Added by Discern Expert. Performed By: #### 1 1400286, 2380006, 4542262, 1882474, 97297178, 9679215, 4177245, 3645842, 5478815, 19001535, 7582155 #### [facility] [address] [place] [address] Monocytes/100 WBC (Bld) 7.2 % Normal 4.0-14.0 [facility] Comment on above: Order Comment: Order Added by Discern Expert. Performed By: #### 1 8866348, 1554101, 0350876, 3337574, 92077976, 9919398, 1485291, 4341294, 3837874, 53560261, 1108980 #### [facility] [address] [place] [address] Monocytes/Leukocytes Auto (Bld) [Pure # fraction] 0.7 E9/L Normal 0.2-1.0 [facility] Comment on above: Order Comment: Order Added by Discern Expert. Performed By: #### 1 6258811, 4140207, 4728101, 2024243, 41202246, 8978811, 2883087, 6198682, 1160428, 03914807, 8030576 #### [facility] [address] [place] [address] Neutrophils/100 WBC (Bld) 59.4 % Normal 36.0-75.0 [facility] Comment on above: Order Comment: Order Added by Discern Expert. Performed By: #### 1 3564962, 0598267, 3727193, 9000617, 21096994, 3792587, 3695961, 1324056, 0358358, 34364767, 0728883 #### [facility] [address] [place] [address] Neutrophils/Leukocytes Auto (Bld) [Pure # fraction] 5.9 E9/L Normal 2.0-7.5 [facility] Comment on above: Order Comment: Order Added by Discern Expert. Performed By: #### 1 4306838, 4392246, 1333838, 4596732, 90816314, 5510971, 4508114, 3391416, 0111873, 60652577, 5576089 #### [facility] [address] [place] [address] [facility] 09-14-2018 Creatinine [Mass/Vol] 0.6 mg/dL Normal 0.5-1.3 [facility] Comment on above: Performed By: #### 1 7503207, 5462478, 3818230, 8071822, 92355618, 5780877, 2685075, 7198187, 4526890, 85490791, 7986824 #### [facility] [address] [place] [address] Urea nitrogen [Mass/Vol] 15 mg/dL Normal 5-21 [facility] Comment on above: Performed By: #### 1 0957669, 7464292, 9787914, 7418560, 59880346, 5410811, 6926430, 2300591, 3951427, 83443784, 9981504 #### [facility] [address] [place] [address] Urea nitrogen/Creatinine [Mass ratio] 25 No Units High 10-20 [facility] Comment on above: Performed By: #### 1 7417423, 7451058, 7097125, 2824154, 25586188, 8978170, 3652626, 7019448, 0618647, 91012603, 8906920 #### [facility] [address] [place] [address] Anion gap [Moles/Vol] 13 mmol/L Normal 6-16 [facility] Comment on above: Performed By: #### 1 2587907, 9873831, 3180062, 4381489, 95193568, 1013464, 6189734, 4939182, 5160393, 10041605, 3300767 #### [facility] [address] [place] [address] Calcium [Mass/Vol] 9.5 mg/dL Normal 8.9-11.1 [facility] Comment on above: Performed By: #### 1 4632650, 4190889, 6373167, 4029971, 69062827, 6768883, 6783691, 5508411, 7883862, 10268917, 1979014 #### [facility] [address] [place] [address] Chloride [Moles/Vol] 103 mmol/L Normal 101-111 [facility] Comment on above: Performed By: #### 1 8150097, 8047534, 2593116, 9160280, 84831509, 3180403, 1993077, 0444688, 9755234, 77415474, 5768338 #### [facility] [address] [place] [address] CO2 [Moles/Vol] 24 mmol/L Normal 21-31 [facility] Comment on above: Performed By: #### 1 7365088, 6886586, 4967130, 5223290, 55094098, 4152750, 3670521, 9802459, 4376886, 06043818, 9875432 #### [facility] [address] [place] [address] Glucose [Mass/Vol] 102 mg/dL Normal 55-199 [facility] Comment on above: Result Comment: If t his glucose result represents a fasting glucose, interpretation should refer to the following reference range: 55-99 mg/dL Performed By: #### 1 7382051, 1010559, 1454786, 9385468, 13047662, 1608365, 8279470, 9238004, 0819259, 60356541, 8815277 #### [facility] [address] [place] [address] Potassium [Moles/Vol] 3.6 mmol/L Normal 3.5-5.3 [facility] Comment on above: Performed By: #### 1 3388398, 8502462, 1764393, 0518624, 42636093, 6516860, 6569869, 1000350, 8837507, 25331218, 9422963 #### [facility] [address] [place] [address] Sodium [Moles/Vol] 136 mmol/L Normal 135-145 [facility] Comment on above: Performed By: #### 1 2090492, 1792129, 9517015, 1092325, 76612668, 5909762, 3230882, 6003035, 7952492, 57829782, 4584028 #### [facility] [address] [place] [address] CBC w/ Auto Diffon 9 Erythrocyte distribution width (RBC) [Ratio] 14.2 % Normal 10.9-14.2 [facility] Comment on above: Performed By: #### 1 9747819, 2831422, 5625908, 6750981, 57108195, 3759976, 0403193, 8462145, 7845966, 76096666, 2357660 #### [facility] [address] [place] [address] Hematocrit (Bld) [Volume fraction] 39.4 % Normal 34.0-46.0 [facility] Comment on above: Performed By: #### 1 8900270, 9194440, 1398005, 5949872, 70148319, 8266826, 5656438, 5661938, 3746705, 56036721, 8953833 #### [facility] [address] [place] [address] Hemoglobin (Bld) [Mass/Vol] 13.3 g/dL Normal 12.0-16.0 [facility] Comment on above: Performed By: #### 1 0385971, 6774119, 9226461, 2145409, 60683988, 0797506, 7865242, 8134687, 8910827, 85915984, 0154443 #### [facility] [address] [place] [address] MCH (RBC) [Entitic mass] 29.2 pg Normal 27.0-34.0 [facility] Comment on above: Performed By: #### 1 3628295, 4887352, 7687835, 9267827, 36568263, 2945347, 4419138, 5776124, 8727801, 99607476, 3902886 #### [facility] [address] [place] [address] MCHC (RBC) [Mass/Vol] 33.8 g/dL Normal 33.3-35.7 [facility] Comment on above: Performed By: #### 1 9822506, 4674000, 6714224, 7330288, 57407735, 8413258, 2551372, 3858376, 6177693, 46305680, 8365999 #### [facility] [address] [place] [address] MCV (RBC) [Entitic vol] 86.6 fL Normal 80.0-100.0 [facility] Comment on above: Performed By: #### 1 8453680, 9722530, 7337315, 6923575, 10101685, 7991144, 1479602, 3999297, 9634322, 73726891, 8774228 #### [facility] [address] [place] [address] Platelet mean volume (Bld) [Entitic vol] 8.8 fL Normal 6.4-10.8 [facility] Comment on above: Performed By: #### 1 6132998, 7690604, 6866507, 5416255, 35515675, 6180884, 3243534, 5111087, 7507135, 28810648, 4412583 #### [facility] [address] [place] [address] Platelets (Bld) [#/Vol] 307.0 E9/L Normal 150.0-500.0 [facility] Comment on above: Performed By: #### 1 0503549, 1980452, 4220816, 0496367, 94296440, 1423580, 7076552, 6286972, 7148533, 40137433, 4592470 #### [facility] [address] [place] [address] RBC (Bld) [#/Vol] 4.6 E12/L Normal 4.3-5.9 [facility] Comment on above: Performed By: #### 1 0092896, 1049706, 9625239, 4549548, 36537968, 3760805, 9298769, 1415332, 1153238, 96327815, 0053647 #### [facility] [address] [place] [address] WBC corrected for nucl RBC Auto (Bld) [#/Vol] 9.9 E9/L Normal 4.0-11.0 [facility] Comment on above: Performed By: #### 1 1947272, 6059460, 9168505, 7015719, 06834243, 6033308, 6337449, 6913477, 7725839, 87903227, 6855804 #### [facility] [address] [place] [address] CKon 09-14-2018 CK [Catalytic activity/Vol] 53 Int._Unit/L Normal 14-261 [facility] Comment on above: Performed By: #### 1 3704816, 5227533, 7160560, 1449944, 94810773, 8153898, 0828472, 0149948, 0965933, 68748781, 0743207 #### [facility] [address] [place] [address] ED Clinical Summaryon 2018 ED Clinical Summary [address] [address] ED Clinical Summary Person Information Name: ARIADNA HALEY [facility] Age: 37 Years : 1980 12:00 AM Sex: Female Language: Nicaraguan PCP: Charles Nicole DO Marital Status: Single Phone: [phone] Visit Id: Visit Reason: Anxiety; Paraesthesia; NUMBNESS [...] 09/14/2018 12:17 AM 09/14/2018 12:17 AM ADDRESS: [address] [place] [address] [place] [id number] PHYS DOC NOTES: MEDICAL INFORMATION: Prescriptions Given: Prescription Display gabapentin (gabapentin 100 mg Cap) 100 mg = 1 cap(s), Oral, Daily, X 7 day(s), # 7 cap(s), Refills(s) 0, Pharmacy: [facility] gabapentin (gabapentin 100 mg Cap) 100 mg = 1 cap(s), Oral, Daily, X 7 day(s), # 7 cap(s), Refills(s) 0, Pharmacy: [facility]/pharmacy #6177 magnesium oxide (magnesium oxide 400 mg Tab) 400 mg = 1 tab(s), Oral, Daily, X 7 day(s), # 7 tab(s), Refills(s) 0, Pharmacy: [facility] magnesium oxide (magnesium oxide 400 mg Tab) 400 mg = 1 tab(s), Oral, Daily, X 7 day(s), # 7 tab(s), Refills(s) 0, Pharmacy: [facility]/pharmacy #6177 Home Meds Display metformin (metformin 500 mg ER Tab) 250 mg, Oral, BID, Refills(s) 0 PATIENT EDUCATION INFORMATION: Instructions: Paresthesia, Ykbs-km-Lpih; Restless Legs Syndrome Follow up: With: Address: When: Sayda Kelley [address] [address] Business (1) Within 1 to 2 days Comments: neurologist you may also follow up with him With: Address: When: [address] [address] Business (1) Within 1 to 2 days Comments: Return to ED if symptoms worsen DIAGNOSIS: 1:Restless leg syndrome Normal [facility] ED Note-Nursingon 09-14-2018 ED Note-Nursing Pt up to RR, gait steady. Normal [facility] ED Note-Nursing Aware of need for urine specimen, denies urge at present, states will notify when able to produce sample, will monitor. Normal [facility] ED Note-Physicianon 09-15-19 19 ED Note-Physician Basic [...] day(s), # 7 cap(s), Refills(s) 0, Pharmacy: [facility]/pharmacy #6177 magnesium oxide, 400 mg = 1 tab(s), Oral, Daily, X 7 day(s), # 7 tab(s), Refills(s) 0, Pharmacy: [facility]/pharmacy #6177 Sodium Chloride 0.9% intravenous solution [...] Sayda Kelley Within 1 to 2 days [facility] [place] [address]- Business (1) Additional Instructions: neurologist you may also follow up with him Charles Nicole Within 1 to [address] [place] [address] Business (1) Additional Instructions: Return to ED if symptoms worsen Patient Education Paresthesia, Jhgr-om-Txox Restless Legs Syndrome Problem List/Past Medical History [...] Lymph Auto: 30.6 % (09/13/18 23:03:00 EDT) Wetzel Auto: 7.2 % (09/13/18 23:03:00 EDT) Eos Auto: 2.2 % (09/13/18 23:03:00 EDT) Basophil Auto: 0.6 % (09/13/18 23:03:00 EDT) Neutro Absolute: 5.9 E9/L (09/13/18 23:03:00 EDT) Lymph Absolute: 3 E9/L (09/13/18 23:03:00 EDT) Wetzel Absolute: 0.7 E9/L (09/13/18 23:03:00 EDT) Eos [...] Diagnostic Results No qualifying data available. Normal [facility] Comment on above: Result Comment: Elec tronically [...] Document Reviewed: 01/29/2012 ExitCare? Patient Information ?2014 Wally. This information is not intended to replace [...] ? Drawing. ? Crawling. ? Worming. ? Cardale. ? Tingling. ? Pins and needles. ? [...] Document Reviewed: 08/06/2011 ExitCare? Patient Information ?[address] [facility]. This information is not intended to replace advice given to you by your health care provider. Make sure you discuss any questions you have with your health care provider. Normal [facility] ED Patient Summaryon 019 ED Patient Summary [address] [address] Patient Discharge Instructions Person Information Name: ARIADNA HALEY Age: 37 Years Arrival Date: 09/13/2018 10:16 PM Discharge Diagnosis: 1:Restless leg syndrome Primary Care Physician: Charles Nicole DO Provider Information Primary Provider: Génesis Lozoya DO [employer] Specialist:None The exam and treatment you received in the Emergency Department were for an urgent problem and are not intended as complete care. It is important that you follow up with a doctor, nurse practitioner, or physician?s office manager executive assistant for ongoing care. If your symptoms [...] Follow-up Instructions: With: Address: When: Sayda Warren [address] [address] Business (1) Within 1 to 2 days Comments: neurologist you may also follow up with him With: Address: When: Charles Nicole [address] [place] [address] Business (1) Within 1 to 2 days Comments: Return to ED if symptoms worsen In the event that this physician does not participate in your insurance network, please consult with your insurance company to find a nearby participating provider. Patient Education Materials: Paresthesia, Tlyg-mo-Mvkl; Restless Legs Syndrome A MESSAGE TO ALL PATIENTS REGARDING OPIOIDS PRESCRIPTION OPIOIDS: WHAT YOU NEED TO KNOW Prescription opioids can be used to help relieve gosizwds-fw-udooeh pain and are often prescribed following a [...] struggling with addiction, tell your health career transition specialist and ask for guidance or call [facility]?S National Helpline at 7-035-075-IOEM. h Source: [place] Department of Health and Human Services/Center for Disease Control & Prevention [facility] Medications Given: Medication Dose Route Sodium Chloride 0.9% intravenous solution 1000.00 mL Initial Volume 1000.00 mL/hr IV Piggyback Left Mid Forearm Medication Information: New Medications [id number], [address], [place] [id number], [phone] gabapentin (gabapentin 100 mg Cap) 1 Capsules By Mouth every day for 7 Days. Refills: 0. magnesium oxide (magnesium oxide 400 mg Tab) 1 Tabs By Mouth every day for 7 Days. Refills: 0. [facility], [address], [place] [id number], [phone] gabapentin (gabapentin 100 mg Cap) 1 Capsules By Mouth every day for 7 Days. Refills: 0. magnesium oxide (magnesium oxide 400 mg Tab) 1 Tabs By Mouth every day for 7 Days. Refills: 0. Medications to Continue with No Changes Other Medications metformin (metformin 500 mg ER Tab) 250 Milligram By Mouth 2 times a day. Comment: Pharmacy Information: Thank you for choosing [facility] Patient Education Materials: Paresthesia Paresthesia is [...] Document Reviewed: 01/29/2012 ExitCare? Patient Information ?2015 Wally. This information is not intended to replace [...] ? Drawing. ? Crawling. ? Worming. ? Cardale. ? Tingling. ? Pins and needles. ? [...] Document Reviewed: 08/06/2011 ExitCare? Patient Information ?2015 Wally. This information is not intended to replace advice given to you by your health care provider. Make sure you discuss any questions you have with your health care provider. TERA Dorantes NICOLE B , have received the following patient education materials/instruction s and have verbalized understanding: Patient Education Materials: Paresthesia, Bigh-wh-Tila; Restless Legs Syndrome Follow-up Instructions: With: Address: When: Sayda Kelley [address] [address] [employer] (1) Within 1 to 2 days Comments: neurologist you may also follow up with him With: Address: When: [address] [address] [employer] (1) Within 1 to 2 days Comments: Return to ED if symptoms worsen Prescriptions: [gabapentin (gabapentin 100 mg Cap)] [gabapentin (gabapentin 100 mg Cap)] [magnesium oxide (magnesium oxide 400 mg Tab)] [magnesium oxide (magnesium oxide 400 mg Tab)] Patient Signature Date Clinician/Nurse Signature Date 09/14/18 00:21:38 Normal [facility] Hep Func Panelon 09-14-2018 Bilirubin.direct [Mass/Vol] UTC Abnormal 0.1-0.9 [facility] Comment on above: Result Comment: Resu lt verified by Discern Rule. Performed result UTC (Unable to Calculate) was sent as an Alpha code due the inability to calculate a valid numeric value. Performed By: #### 1 7315328, 2244114, 1149247, 5500278, 58975251, 6497905, 4678440, 8937041, 9345131, 72931113, 8177518 #### [facility] [address] [place] [address] Albumin [Mass/Vol] 1.1 g/dL Normal 1.1-2.2 [facility] Comment on above: Performed By: #### 1 7758150, 4606358, 7401346, 2210677, 10981946, 3261169, 9059757, 2192765, 1735609, 82215598, 3744261 #### [facility] [address] [place] [address] Albumin [Mass/Vol] 4.1 g/dL Normal 3.3-5.0 [facility] Comment on above: Performed By: #### 1 2601945, 7955040, 9803009, 0083374, 69969883, 3161561, 5261160, 6770272, 7548732, 31680822, 9570081 #### [facility] [address] [place] [address] ALP [Catalytic activity/Vol] 69 Int._Unit/L Normal 21-98 [facility] Comment on above: Performed By: #### 1 7628334, 5683273, 3068665, 1265227, 21340430, 6674881, 0188649, 5118998, 5979530, 02223108, 9663091 #### [facility] [address] [place] [address] ALT No additional P-5'-P [Catalytic activity/Vol] 27 Int._Unit/L Normal 6-46 [facility] Comment on above: Performed By: #### 1 8892378, 2475326, 0487346, 1856004, 19272317, 6237346, 2770471, 5962231, 2882580, 31814881, 6648525 #### [facility] [address] [place] [address] AST [Catalytic activity/Vol] 16 Int._Unit/L Normal 5-43 [facility] Comment on above: Performed By: #### 1 6335905, 0853175, 3830987, 5511940, 71833622, 6398847, 3116009, 8427288, 6276192, 74300727, 4431947 #### [facility] [address] [place] [address] Bilirubin [Mass/Vol] 0.5 mg/dL Normal 0.0-1.1 [facility] Comment on above: Performed By: #### 1 0662869, 0957134, 9467906, 5038137, 91738304, 0266053, 0547765, 2114268, 5299474, 38603762, 7205769 #### [facility] [address] [place] [address] Bilirubin.direct [Mass/Vol] mg/dL Normal 0.1-0.4 [facility] Comment on above: Performed By: #### 1 9305570, 9849076, 9014768, 1213008, 54220045, 0265570, 0401686, 4956771, 7660406, 50401392, 1943743 #### [facility] [address] [place] [address] Globulin (S) [Mass/Vol] 3.7 g/dL Normal 1.4-4.0 [facility] Comment on above: Performed By: #### 1 7957919, 3157019, 3607906, 1433355, 45364842, 3142758, 0716374, 9276983, 8236006, 89438802, 8232877 #### [facility] [address] [place] [address] Protein [Mass/Vol] 7.8 g/dL Normal 6.0-7.8 [facility] Comment on above: Performed By: #### 1 3738840, 1576064, 7860870, 5658357, 72395151, 8040294, 9774204, 5503570, 0012202, 14497838, 9519025 #### [facility] [address] [place] [address] Magnesiumon 09-14-2018 Magnesium [Mass/Vol] 1.9 mg/dL Normal 1.3-2.4 [facility] Comment on above: Performed By: #### 1 8955380, 4231888, 0001557, 9123959, 33254597, 0643947, 9290170, 4294484, 2740638, 80762219, 3967664 #### [facility] [address] [place] [address] Myoglobinon 09-14-2018 Myoglobin [Mass/Vol] 9 ng/mL Normal <=69 [facility] Comment on above: Performed By: #### 1 9495392, 4359917, 9391639, 9177275, 14501106, 5756134, 9881455, 2112252, 6333368, 18449828, 4470432 #### [facility] [address] [place] [address] PT & PTTon 09-14-2018 aPTT Coag (PPP) [Time] 34.5 second(s) Normal 25.1-36.5 [facility] Comment on above: Result Comment: Hepa rin therapeutic range (represented by Anti-Factor Xa activity of 0.2 - 0.4 U/mL) corresponds to PTT of 56.6 - 109.0 sec. Performed By: #### 1 8907836, 6268625, 3960741, 3335549, 47975674, 3086154, 8510858, 4755172, 6716066, 52272044, 7582649 #### [facility] [address] [place] [address] INR Coag (PPP) [Relative time] 1.0 {INR} [facility] Comment on above: Result Comment: INR results are specifically intended to assess patients stabilized on long-term Anticoagulation therapy suggested INR?s ?Less Intensive Anticoagulation? 2.0 ? 3.0 Conventional Range 3.0 ? 4.5 Performed By: #### 1 9800595, 2973557, 8865646, 9355359, 08886797, 5468762, 6191011, 7409747, 9161977, 93791948, 8281219 #### [facility] [address] [place] [address] PT Coag (PPP) [Time] 11.2 second(s) Normal 10.2-12.9 [facility] Comment on above: Performed By: #### 1 7628616, 5190235, 1482295, 1154871, 50122334, 8052418, 8087740, 7349788, 7536812, 39411756, 9641454 #### [facility] [address] [place] [address] Phosphoruson 09-14-2018 Phosphate [Mass/Vol] 3.8 mg/dL Normal 1.9-4.6 [facility] Comment on above: Performed By: #### 1 7463807, 6921521, 8045843, 5264120, 58908013, 7447673, 4248557, 4530231, 3016206, 57173481, 2568799 #### [facility] [address] [place] [address] Troponin 0 Hr.on 09-14-2018 Troponin I.cardiac [Mass/Vol] ng/mL Normal <=0.03 [facility] Comment on above: Result Comment: New Troponin Assay 10/05/13 KRISHNA MA Cutoff value > or = 0.03 ng/mL in conjunction with clinical conditions of myocardial infarction. ([email or web address]) Performed By: #### 1 9440741, 2338073, 4006291, 2021872, 09647572, 7321542, 8282139, 9692398, 0924222, 34298529, 0555853 #### [facility] [address] [place] [address] UA With Cult Reflexon 2018 Bacteria LM Ql (Urine sed) TRACE Normal Trace [facility] Comment on above: Performed By: #### 1 9888658, 7480198, 5887949, 4648182, 33270314, 4999473, 1910310, 0779671, 8519315, 88573571, 7606384 #### [facility] [address] [place] [address] Bilirubin Ql (U) Negative Normal Negative [facility] Comment on above: Performed By: #### 1 6992017, 2212042, 6840414, 9047715, 56720726, 9768695, 3080548, 3285980, 0826634, 11101664, 2391889 #### [facility] [address] [place] [address] Clarity (U) CLEAR Normal Clear [facility] Comment on above: Performed By: #### 1 1408873, 0914006, 2721967, 4209910, 20704932, 4158505, 3155627, 0473244, 6052049, 94350737, 0996550 #### [facility] Laboratory [address] [place] [address] Color (U) YELLOW Normal Yellow [facility] Comment on above: Performed By: #### 1 [id number], [id number], 9215601, 4443037, 12681843, 6523153, 4695565, 7233463, 9950367, 08522649, 7652687 #### [facility] [address] [place] [address] Epithelial cells.squamous LM.HPF (Urine sed) [#/Area] 0-2 Normal 0-2 [facility] Comment on above: Performed By: #### 1 [id number], 2202659, 8033160, 7843116, 84556602, 8009716, 7325954, 7969288, 4637281, 91793747, 7190300 #### [facility] [address] [place] [address] Glucose Test strip (U) [Mass/Vol] Negative Normal Negative [facility] Comment on above: Performed By: #### 1 [id number], 0312658, 8406721, 6869319, 33278559, 9262229, 3710879, 6045046, 7334744, 35392784, 6175556 #### [facility] [address] [place] [address] Hemoglobin Ql (U) Negative Normal Negative [facility] Comment on above: Performed By: #### 1 [id number], 4710867, 1424013, 6412974, 53425224, 1079567, 5637144, 7129386, 2691112, 11983267, 1519747 #### [facility] [address] [place] [address] Ketones (U) [Mass/Vol] Negative Normal Negative [facility] Comment on above: Performed By: #### 1 [id number], 5196497, 3669356, 0310321, 20631600, 6409889, 2179392, 6903806, 4498959, 79616619, 9614773 #### [facility] [address] [place] [address] [place].plasma/[place] .RBC (Bld) [Mass ratio] 0-3 Normal 0-3 [facility] Comment on above: Performed By: #### 1 [id number], 6645707, 2590150, 4590652, 93585166, 9263608, 8680854, 0004023, 3863780, 64150308, 8575896 #### [facility] [address] [place] [address] Mucus Ql (Urine sed) TRACE Normal [facility] Comment on above: Performed By: #### 1 [id number], 0791333, 0828104, 2011591, 03295301, 0394267, 5266024, 3251987, 6304284, 56327067, 1498114 #### [facility] [address] [place] [address] Nitrite Ql (U) Negative Normal Negative [facility] Comment on above: Performed By: #### 1 4585473, 1324215, 9987018, 1476224, 83585493, 2008882, 8706080, 6950141, 7008691, 01169011, 3715395 #### [facility] [address] [place] [address] pH (U) 6.0 [pH] 5.0-9.0 [facility] Comment on above: Performed By: #### 1 3872553, 5477117, 3225190, 7494768, 14055173, 0890835, 8816975, 5583351, 2202171, 27084635, 0756838 #### [facility] [address] [place] [address] Protein (U) [Mass/Vol] Negative Normal Negative [facility] Comment on above: Performed By: #### 1 8151083, 6324974, 5480743, 0409484, 93032579, 7822247, 3997369, 6121934, 1896157, 49886800, 9622367 #### [facility] [address] [place] [address] Specific gravity (U) [Rel density] 1.010 1.005-1.030 [facility] Comment on above: Performed By: #### 1 0603170, 8477427, 1738757, 5547541, 89982409, 6194668, 8038500, 6707348, 0454002, 79034176, 3003644 #### [facility] [address] [place] [address] UA Spec Desc Clean Catch Normal [facility] Comment on above: Performed By: #### 1 1752883, 6944598, 9509206, 5458899, 65817827, 7118812, 9376792, 6945468, 3348032, 21140917, 3566626 #### [facility] [address] [place] [address] Urobilinogen Qn (U) 0.2 {Carmella'U}/dL Normal 0.0-1.0 [facility] Comment on above: Performed By: #### 1 3239631, 6210366, 4896503, 8258920, 74196096, 9154226, 7267473, 5010484, 7865371, 01849492, 1596526 #### [facility] [address] [place] [address] WBC Auto Ql (U) Negative Normal Negative [facility] Comment on above: Performed By: #### 1 2121973, 8627699, 1415982, 4699916, 96403455, 3764907, 0607737, 9945903, 6602150, 03909566, 0494549 #### [facility] [address] [place] [address] WBC LM.HPF (Urine sed) [#/Area] 0-5 Normal 0-5 [facility] Comment on above: Performed By: #### 1 7132629, 1374733, 2094150, 9963812, 52810738, 9042751, 4104844, 5629498, 0856858, 89507080, 0648524 #### [facility] [address] [place] [address] XR Chest Single Viewon 09-14 XR Chest [...] M.D. Transcribed by: minoo Technologist: AP Normal [facility] XR FOOT LEFT (MIN 3 VIEWS)on 09-14-2018 XR FOOT LEFT (MIN 3 VIEWS) Radiology exam is complete. No Radiologist dictation. Please follow up with ordering provider. Final result Normal [facility] XR FOOT RIGHT (MIN 3 VIEWS)o n 09-14-2018 XR FOOT RIGHT (MIN 3 VIEWS) Radiology exam is complete. No Radiologist dictation. Please follow up with ordering provider. Final result Normal [facility] eGFRon 09-14-2018 GFR/1.73 sq M predicted among blacks MDRD (S/P/Bld) [Vol rate/Area] mL/min/{1.73_m2} Normal >=59 [facility] Comment on above: Order Comment: Order added by Discern Expert. Result Comment: eGFR is race adjusted. AA=. Performed By: #### 1 [id number], 5344309, 1751432, 9641139, 91733162, 8952834, 4410698, 3765386, 7412757, 64097265, 3192531 #### [facility] [address] [place] [address] GFR/1.73 sq M predicted among non-blacks MDRD (S/P/Bld) [Vol rate/Area] mL/min/{1.73_m2} Normal >=59 [facility] Comment on above: Order Comment: Order added by Discern Expert. Result Comment: Jewel Supervisor anthony kidney disease could be indicated at eGFR's of less than 60 mL/min/1.73m2. Kidney failure is indicated at less than 15 mL/min/1.73m2. Performed By: #### 1 1731705, 5127388, 7795825, 6125104, 79703736, 7105414, 2414865, 1063382, 5797426, 90086367, 7205237 #### [facility] [address] [place] [address] Vital Signs Date Time Vital Sign Value Performing Clinician Facility 02-28-2025 09:25-0400 Body height 170.2 cm Terence Pacheco MD Work Phone: [facility] 02-28-2025 09:25-0400 Body mass index (BMI) [Ratio] 45.58 kg/m2 Terence Pacheco MD Work Phone: [facility] 02-28-2025 09:25-0400 Body weight 132 kg Terence Pacheco MD Work Phone: [facility] 02-28-2025 09:25-0400 Diastolic blood pressure 78 mm[Hg] Terence Pacheco MD Work Phone: [facility] 02-28-2025 09:25-0400 Systolic blood pressure 120 mm[Hg] Terence Pacheco MD Work Phone: [facility] 02-14-2025 09:42-0400 Body height 170.18 cm Gay Britt [employer]Y [employer]GER TESTER[employer]C Work Phone: [facility] 02-14-2025 09:42-0400 Diastolic blood pressure 76 mm[Hg] Gay Britt [employer] CHARGER TESTER[employer]C Work Phone: [facility] 02-14-2025 09:42-0400 Heart rate 65 /min Gay Britt [employer]GER TESTER[employer]C Work Phone: [facility] 02-14-2025 09:42-0400 SaO2% (BldA) [Mass fraction] 97 % Gay Britt [employer]GER TESTER[employer]C Work Phone: [facility] 02-14-2025 09:42-0400 Systolic blood pressure 118 mm[Hg] Gay Britt [employer]TERY CHARGER TESTER-C Work Phone: [facility] 01-31-2025 11:40-0400 Diastolic blood pressure 80 mm[Hg] Gay Britt [employer]TERY CHARGER TESTER-C Work Phone: [facility] 01-31-2025 11:40-0400 Heart rate 86 /min Gay Britt [employer]Y CHARGER TESTER-C Work Phone: [facility] 01-31-2025 11:40-0400 Respiratory rate 18 /min Gay Britt [employer] CHARGER TESTER-C Work Phone: [facility] 01-31-2025 11:40-0400 SaO2% (BldA) [Mass fraction] 94 % Gay Enciso BATTERY CHARGER TESTER-C Work Phone: [facility] 01-31-2025 11:40-0400 Systolic blood pressure 116 mm[Hg] Gay Enciso BATTER[employer] CHARGER TESTER[employer]C Work Phone: [facility] 01-31-2025 10:11-0400 Body height 170.18 cm Gay Enciso BATTERY CHARGER TESTER-C Work Phone: [facility] 01-31-2025 10:11-0400 Body weight 127 kg Gay Enciso BATTERY CHARGER TESTER-C Work Phone: [facility] 01-24-2025 14:20-0400 Diastolic blood pressure 68 mm[Hg] Chair Cleveland Work Phone: [facility] 01-24-2025 14:20-0400 Heart rate 82 /min Chair Cleveland Work Phone: [facility] 01-24-2025 14:20-0400 Respiratory rate 18 /min Chair Gabbi Work Phone: [facility] 01-24-2025 14:20-0400 SaO2% (BldA) [Mass fraction] 98 % Chair Cleveland Work Phone: [facility] 01-24-2025 14:20-0400 Systolic blood pressure 111 mm[Hg] Chair Cleveland Work Phone: [facility] 01-24-2025 10:42-0400 Body temperature 97.81 [degF] Chair Cleveland Work Phone: [facility] 01-17-2025 10:38-0400 Body height 170.18 cm Gay Enciso BATTERY CHARGER TESTER-C Work Phone: [facility] 01-17-2025 10:38-0400 Diastolic blood pressure 62 mm[Hg] Gay Enciso BATTERY CHARGER TESTER-C Work Phone: [facility] 01-17-2025 10:38-0400 Heart rate 92 /min Gay Enciso [employer]GER TESTER-C Work Phone: [facility] 01-17-2025 10:38-0400 SaO2% (BldA) [Mass fraction] 96 % Gay Enciso [employer]GER TESTER-C Work Phone: [facility] 01-17-2025 10:38-0400 Systolic blood pressure 108 mm[Hg] Gay Enciso BATTERY CHARGER TESTER-C Work Phone: [facility] 01-11-2025 13:51-0400 Body temperature 98.29 [degF] Chair Cleveland Work Phone: [facility] 01-11-2025 13:51-0400 Diastolic blood pressure 91 mm[Hg] Chair Cleveland Work Phone: [facility] 01-11-2025 13:51-0400 Heart rate 76 /min Chair Cleveland Work Phone: [facility] 01-11-2025 13:51-0400 Respiratory rate 20 /min Chair Gabbi Work Phone: [facility] 01-11-2025 13:51-0400 SaO2% (BldA) [Mass fraction] 98 % Chair Gabbi Work Phone: [facility] 01-11-2025 13:51-0400 Systolic blood pressure 146 mm[Hg] Chair Cleveland Work Phone: [facility] 12-14-2024 14:10-0400 Diastolic blood pressure 71 mm[Hg] Chair Gabbi Work Phone: [facility] 12-14-2024 14:10-0400 Heart rate 83 /min Chair Cleveland Work Phone: [facility] 12-14-2024 14:10-0400 Respiratory rate 18 /min Chair Cleveland Work Phone: [facility] 12-14-2024 14:10-0400 SaO2% (BldA) [Mass fraction] 96 % Chair Cleveland Work Phone: [facility] 12-14-2024 14:10-0400 Systolic blood pressure 128 mm[Hg] Chair Cleveland Work Phone: [facility] 12-12-2024 10:45-0400 Body height 170.18 cm Gay Britt BATTERY CHARGER TESTER-C Work Phone: [facility] 12-12-2024 10:45-0400 Body mass index (BMI) [Ratio] 44.8 kg/m2 Gay Britt BATTERY [employer]GER TESTER-C Work Phone: [facility] 12-12-2024 10:45-0400 Body weight 129.72 kg Gay Britt BATTERY CHARGER TESTER-C Work Phone: [facility] 12-12-2024 10:45-0400 Diastolic blood pressure 71 mm[Hg] Gayjimmy Johnmer BATTERY CHARGER TESTER-C Work Phone: [facility] 12-12-2024 10:45-0400 Heart rate 63 /min Gay Britt BATTERY CHARGER TESTER-C Work Phone: [facility] 12-12-2024 10:45-0400 Systolic blood pressure 109 mm[Hg] Gay Britt BATTERY CHARGER TESTER-C Work Phone: [facility] 11-30-2024 09:08-0400 Diastolic blood pressure 84 mm[Hg] Gay Britt BATTERY CHARGER TESTER-C Work Phone: [facility] 11-30-2024 09:08-0400 Heart rate 64 /min Gay Britt BATTERY CHARGER TESTER-C Work Phone: [facility] 11-30-2024 09:08-0400 SaO2% (BldA) [Mass fraction] 98 % Gay Britt BATTERY CHARGER TESTER-C Work Phone: [facility] 11-30-2024 09:08-0400 Systolic blood pressure 120 mm[Hg] Gay Britt BATTERY CHARGER TESTER-C Work Phone: [facility] 11-29-2024 14:46-0400 Body temperature 97.81 [degF] Chair Agbbi Work Phone: [facility] 11-29-2024 14:46-0400 Diastolic blood pressure 73 mm[Hg] Chair Cleveland Work Phone: [facility] 11-29-2024 14:46-0400 Heart rate 77 /min Chair Gabbi Work Phone: [facility] 11-29-2024 14:46-0400 Respiratory rate 18 /min Chair Gabbi Work Phone: [facility] 11-29-2024 14:46-0400 SaO2% (BldA) [Mass fraction] 98 % Chair Gabbi Work Phone: [facility] Comment on above: RA 11-29-2024 14:46-0400 Systolic blood pressure 122 mm[Hg] Chair Gabbi Work Phone: [facility] 11-29-2024 09:13-0400 Body height 170.2 cm Vaibhav Carvalho APRN.PRINTING GRAY [employer]OTH TENDER Work Phone: [facility] 11-29-2024 09:13-0400 Body mass index (BMI) [Ratio] 45.12 kg/m2 Vaibhav Carvalho MANAGER OF HEALTH.PRINTING G[employer]OTH TENDER Work Phone: [facility] 11-29-2024 09:13-0400 Body temperature 97.5 [degF] Vaibhav Carvalho MANAGER OF HEALTH.PRINTING [employer]OTH TENDER Work Phone: [facility] 11-29-2024 09:13-0400 Body weight 130.7 kg Vaibhav Carvalho MANAGER OF HEALTH.PRINTING [employer]OTH TENDER Work Phone: [facility] 11-29-2024 09:13-0400 Diastolic blood pressure 57 mm[Hg] Vaibhav Deven MANAGER OF HEALTH.PRINTING [employer]OTH TENDER Work Phone: [facility] 11-29-2024 09:13-0400 Heart rate 88 /min Vaibhav Carvalho MANAGER OF HEALTH.PRINTING [employer]OTH TENDER Work Phone: [facility] 11-29-2024 09:13-0400 Respiratory rate 18 /min Vaibhav Carvalho MANAGER OF HEALTH.PRINTING G[employer]OTH TENDER Work Phone: [facility] 11-29-2024 09:13-0400 SaO2% (BldA) [Mass fraction] 98 % Vaibhav Carvalho MANAGER OF HEALTH.PRINTING G[employer]OTH TENDER Work Phone: [facility] 11-29-2024 09:13-0400 Systolic blood pressure 113 mm[Hg] Vaibhav Carvalho APRN.PRINTING G[employer]OTH TENDER Work Phone: [facility] 11-16-2024 13:47-0400 Body temperature 98.01 [degF] Chair Gabbi Work Phone: [facility] 11-16-2024 13:47-0400 Diastolic blood pressure 70 mm[Hg] Chair Gabbi Work Phone: [facility] 11-16-2024 13:47-0400 Heart rate 89 /min Chair Gabbi Work Phone: [facility] 11-16-2024 13:47-0400 Respiratory rate 20 /min Chair Gabbi Work Phone: [facility] 11-16-2024 13:47-0400 SaO2% (BldA) [Mass fraction] 97 % Chair Gabbi Work Phone: [facility] 11-16-2024 13:47-0400 Systolic blood pressure 101 mm[Hg] Chair Gabbi Work Phone: [facility] 11-13-2024 11:17-0400 Body height 170.18 cm Gay Enciso BATTERY CHARGER TESTER-C Work Phone: [facility] 11-13-2024 11:17-0400 Body mass index (BMI) [Ratio] 44.1 kg/m2 Gay Enciso BATTERY CHARGER TESTER-C Work Phone: [facility] 11-13-2024 11:17-0400 Body weight 127.91 kg Gay Enciso BATTERY CHARGER TESTER-C Work Phone: [facility] 11-13-2024 11:17-0400 Diastolic blood pressure 78 mm[Hg] Gay Enciso BATTERY CHARGER TESTER-C Work Phone: [facility] 11-13-2024 11:17-0400 Heart rate 96 /min Gay Johnmer BATTERY CHARGER TESTER-C Work Phone: [facility] 11-13-2024 11:17-0400 Systolic blood pressure 104 mm[Hg] Gay Johnmer BATTERY CHARGER TESTER-C Work Phone: [facility] 10-31-2024 14:46-0400 Diastolic blood pressure 76 mm[Hg] Chair Cleveland Work Phone: [facility] 10-31-2024 14:46-0400 Heart rate 68 /min Chair Cleveland Work Phone: [facility] 10-31-2024 14:46-0400 Respiratory rate 20 /min Chair Cleveland Work Phone: [facility] 10-31-2024 14:46-0400 SaO2% (BldA) [Mass fraction] 94 % Chair Cleveland Work Phone: [facility] Comment on above: RA 10-31-2024 14:46-0400 Systolic blood pressure 133 mm[Hg] Chair Cleveland Work Phone: [facility] 10-31-2024 09:19-0400 Body temperature 97.81 [degF] Chair Cleveland Work Phone: [facility] 2024 14:16-0400 Body mass index (BMI) [Ratio] 44.01 kg/m2 Chair Gabbi Work Phone: [facility] 2024 14:16-0400 Body temperature 97.59 [degF] Chair Gabbi Work Phone: [facility] 2024 14:16-0400 Body weight 127.5 kg Chair Gabbi Work Phone: [facility] 2024 14:16-0400 Diastolic blood pressure 78 mm[Hg] Chair Cleveland Work Phone: [facility] 2024 14:16-0400 Heart rate 85 /min Chair Cleveland Work Phone: [facility] 2024 14:16-0400 Respiratory rate 16 /min Chair Gabbi Work Phone: [facility] 2024 14:16-0400 SaO2% (BldA) [Mass fraction] 96 % Chair Cleveland Work Phone: [facility] 2024 14:16-0400 Systolic blood pressure 113 mm[Hg] Chair Cleveland Work Phone: [facility] 10-02-2024 14:15-0400 Body temperature 98.29 [degF] Chair Cleveland Work Phone: [facility] 10-02-2024 14:15-0400 Diastolic blood pressure 80 mm[Hg] Chair Cleveland Work Phone: [facility] 10-02-2024 14:15-0400 Heart rate 76 /min Chair Cleveland Work Phone: [facility] 10-02-2024 14:15-0400 Respiratory rate 16 /min Chair Gabbi Work Phone: [facility] 10-02-2024 14:15-0400 SaO2% (BldA) [Mass fraction] 97 % Chair Cleveland Work Phone: [facility] 10-02-2024 14:15-0400 Systolic blood pressure 129 mm[Hg] Chair Gabbi Work Phone: [facility] 09-18-2024 13:20-0400 Body temperature 97.59 [degF] Chair Gabbi Work Phone: [facility] 09-18-2024 13:20-0400 Diastolic blood pressure 84 mm[Hg] Chair Gabbi Work Phone: [facility] 09-18-2024 13:20-0400 Heart rate 107 /min Chair Cleveland Work Phone: [facility] 09-18-2024 13:20-0400 Respiratory rate 18 /min Chair Cleveland Work Phone: [facility] 09-18-2024 13:20-0400 SaO2% (BldA) [Mass fraction] 97 % Chair Cleveland Work Phone: [facility] 09-18-2024 13:20-0400 Systolic blood pressure 115 mm[Hg] Chair Cleveland Work Phone: [facility] 09-06-2024 16:17-0400 Heart rate 90 /min Gay Johnmer BATTERY CHARGER TESTER-C Work Phone: [facility] 09-06-2024 16:17-0400 SaO2% (BldA) [Mass fraction] 97 % Gay Johnmer BATTERY CHARGER TESTER-C Work Phone: [facility] 09-06-2024 13:54-0400 Diastolic blood pressure 69 mm[Hg] Chair Cleveland Work Phone: [facility] 09-06-2024 13:54-0400 Heart rate 90 /min Chair Cleveland Work Phone: [facility] 09-06-2024 13:54-0400 Respiratory rate 18 /min Chair Cleveland Work Phone: [facility] 09-06-2024 13:54-0400 SaO2% (BldA) [Mass fraction] 97 % Chair Cleveland Work Phone: [facility] 09-06-2024 13:54-0400 Systolic blood pressure 110 mm[Hg] Chair Cleveland Work Phone: [facility] 09-06-2024 08:43-0400 Body height 170.2 cm Vaibhav Carvalho APRN.PRINTING G[employer] TENDER Work Phone: [facility] 09-06-2024 08:43-0400 Body mass index (BMI) [Ratio] 45.5 kg/m2 Vaibhav Carvalho APRN.PRINTING G[employer]OTH TENDER Work Phone: [facility] 09-06-2024 08:43-0400 Body temperature 97.5 [degF] Vaibhav Deven MANAGER OF HEALTH.PRINTING G[employer] TENDER Work Phone: [facility] 09-06-2024 08:43-0400 Body weight 131.8 kg Vaibhav Deven MANAGER OF HEALTH.PRINTING G[employer]OTH TENDER Work Phone: [facility] 09-06-2024 08:43-0400 Diastolic blood pressure 64 mm[Hg] Vaibhav Deven MANAGER OF HEALTH.PRINTING G[employer]OTH TENDER Work Phone: [facility] 09-06-2024 08:43-0400 Heart rate 77 /min Vaibhav Deven MANAGER OF HEALTH.PRINTING G[employer]OTH TENDER Work Phone: [facility] 09-06-2024 08:43-0400 Respiratory rate 18 /min Vaibhav Deven MANAGER OF HEALTH.PRINTING [employer]OTH TENDER Work Phone: [facility] 09-06-2024 08:43-0400 SaO2% (BldA) [Mass fraction] 97 % Vaibhav Deven MANAGER OF HEALTH.PRINTING G[employer]OTH TENDER Work Phone: [facility] 09-06-2024 08:43-0400 Systolic blood pressure 116 mm[Hg] Vaibhav Deven MANAGER OF HEALTH.PRINTING G[employer]OTH TENDER Work Phone: [facility] 09-04-2024 15:04-0400 Body height 170.2 cm Gordo Barfield MD Work Phone: [facility] 09-04-2024 15:04-0400 Body mass index (BMI) [Ratio] 44.32 kg/m2 Gordo Barfield MD Work Phone: [facility] 09-04-2024 15:04-0400 Body weight 128.37 kg Gordo Barfield MD Work Phone: [facility] 09-04-2024 15:04-0400 Diastolic blood pressure 73 mm[Hg] Gordo Barfield MD Work Phone: [facility] 09-04-2024 15:04-0400 Heart rate 101 /min Gordo Barfield MD Work Phone: [facility] 09-04-2024 15:04-0400 Systolic blood pressure 112 mm[Hg] Gordo Barfield MD Work Phone: [facility] 08-08-2024 14:36-0400 Diastolic blood pressure 87 mm[Hg] Chair Cleveland Work Phone: [facility] 08-08-2024 14:36-0400 Heart rate 83 /min Chair Cleveland Work Phone: [facility] 08-08-2024 14:36-0400 Respiratory rate 18 /min Chair Gabbi Work Phone: [facility] 08-08-2024 14:36-0400 SaO2% (BldA) [Mass fraction] 97 % Chair Cleveland Work Phone: [facility] 08-08-2024 14:36-0400 Systolic blood pressure 129 mm[Hg] Chair Cleveland Work Phone: [facility] 08-08-2024 10:54-0400 Body temperature 98.01 [degF] Chair Gabbi Work Phone: [facility] 07-31-2024 16:05-0400 Diastolic blood pressure 70 mm[Hg] Gayjimmy Enciso BAT[employer]GER TESTER-C Work Phone: [facility] 07-31-2024 16:05-0400 Heart rate 108 /min Gay Enciso BATTERY CHARGER TESTER-C Work Phone: [facility] 07-31-2024 16:05-0400 SaO2% (BldA) [Mass fraction] 96 % Gayjimmy Enciso BAT[employer] CHARGER TESTER-C Work Phone: [facility] 07-31-2024 16:05-0400 Systolic blood pressure 104 mm[Hg] Gayjimmy Enciso BATTERY CHARGER TESTER-C Work Phone: [facility] 07-26-2024 15:06-0500 Body height 170.2 cm Lois Holm MD Work Phone: [facility] 07-26-2024 15:06-0500 Body mass index (BMI) [Ratio] 44.92 kg/m2 Lois Holm MD Work Phone: [facility] 07-26-2024 15:06-0500 Body weight 130.09 kg Lois Holm MD Work Phone: [facility] 07-26-2024 15:06-0500 Diastolic blood pressure 60 mm[Hg] Lois Holm MD Work Phone: [facility] 07-26-2024 15:06-0500 Heart rate 84 /min Lois Holm MD Work Phone: [facility] 07-26-2024 15:06-0500 Systolic blood pressure 100 mm[Hg] Lois Holm MD Work Phone: [facility] 07-19-2024 11:27-0500 Diastolic blood pressure 90 mm[Hg] Gay Enciso BATTERY CHARGER TESTER-C Work Phone: [facility] 07-19-2024 11:27-0500 Heart rate 78 /min Gay Enciso BATTERY CHARGER TESTER-C Work Phone: [facility] 07-19-2024 11:27-0500 Respiratory rate 16 /min Gay Enciso BATTERY CHARGER TESTER-C Work Phone: [facility] 07-19-2024 11:27-0500 SaO2% (BldA) [Mass fraction] 96 % Gay Enciso BATTERY CHARGER TESTER-C Work Phone: [facility] 07-19-2024 11:27-0500 Systolic blood pressure 126 mm[Hg] Gay Enciso BATTERY CHARGER TESTER-C Work Phone: [facility] 07-19-2024 09:54-0500 Body height 170.18 cm Gay Enciso BATTERY CHARGER TESTER-C Work Phone: [facility] 07-19-2024 09:54-0500 Body weight 127 kg Gay Enciso BATTERY CHARGER TESTER-C Work Phone: [facility] 07-12-2024 14:16-0500 Body temperature 96.91 [degF] Marky Barnes PA-C Work Phone: [facility] 07-11-2024 14:30-0500 Body temperature 97.39 [degF] Chair Cleveland Work Phone: [facility] 07-11-2024 14:30-0500 Diastolic blood pressure 80 mm[Hg] Chair Cleveland Work Phone: [facility] 07-11-2024 14:30-0500 Heart rate 69 /min Chair Cleveland Work Phone: [facility] 07-11-2024 14:30-0500 Respiratory rate 18 /min Chair Cleveland Work Phone: [facility] 07-11-2024 14:30-0500 SaO2% (BldA) [Mass fraction] 98 % Chair Cleveland Work Phone: [facility] 07-11-2024 14:30-0500 Systolic blood pressure 119 mm[Hg] Chair Cleveland Work Phone: [facility] 07-10-2024 15:25-0500 Diastolic blood pressure 70 mm[Hg] [facility] 07-10-2024 15:25-0500 Heart rate 106 /min [facility] 07-10-2024 15:25-0500 SaO2% (BldA) [Mass fraction] 97 % [facility] 07-10-2024 15:25-0500 Systolic blood pressure 102 mm[Hg] [facility] 06-13-2024 14:55-0500 Diastolic blood pressure 56 mm[Hg] Chair Cleveland Work Phone: [facility] 06-13-2024 14:55-0500 Heart rate 70 /min Chair Gabbi Work Phone: [facility] 06-13-2024 14:55-0500 Respiratory rate 18 /min Chair Gabbi Work Phone: [facility] 06-13-2024 14:55-0500 SaO2% (BldA) [Mass fraction] 98 % Chair Gabbi Work Phone: [facility] 06-13-2024 14:55-0500 Systolic blood pressure 93 mm[Hg] Chair Reese Work Phone: [facility] 06-13-2024 08:55-0500 Body mass index (BMI) [Ratio] 45.08 kg/m2 Vaibhav Deven MANAGER OF HEALTH.PRINTING GRAY CLOTH TENDER Work Phone: [facility] 06-13-2024 08:55-0500 Body temperature 97.59 [degF] Vaibhav Deven MANAGER OF HEALTH.PRINTING GRAY CLOTH TENDER Work Phone: [facility] 06-13-2024 08:55-0500 Body weight 130.6 kg Vaibhav Deven MANAGER OF HEALTH.PRINTING GRAY CLOTH TENDER Work Phone: [facility] 06-13-2024 08:55-0500 Diastolic blood pressure 71 mm[Hg] Vaibhav Deven MANAGER OF HEALTH.PRINTING GRAY CLOTH TENDER Work Phone: [facility] 06-13-2024 08:55-0500 Heart rate 79 /min Vaibhav Deven MANAGER OF HEALTH.PRINTING GRAY CLOTH TENDER Work Phone: [facility] 06-13-2024 08:55-0500 Respiratory rate 16 /min Vaibhav Deven MANAGER OF HEALTH.PRINTING GRAY CLOTH TENDER Work Phone: [facility] 06-13-2024 08:55-0500 SaO2% (BldA) [Mass fraction] 98 % Vaibhav Deven MANAGER OF HEALTH.PRINTING GRAY CLOTH TENDER Work Phone: [facility] 06-13-2024 08:55-0500 Systolic blood pressure 106 mm[Hg] Vaibhav Deven MANAGER OF HEALTH.PRINTING GRAY CLOTH TENDER Work Phone: [facility] 06-06-2024 11:37-0500 Body mass index (BMI) [Ratio] 45.08 kg/m2 Oly WARREN Work Phone: [facility] 06-06-2024 11:37-0500 Body weight 130.54 kg Oly WARREN Work Phone: [facility] 06-06-2024 11:37-0500 Diastolic blood pressure 70 mm[Hg] Oly WARREN Work Phone: [facility] 06-06-2024 11:37-0500 Systolic blood pressure 120 mm[Hg] Oly WARREN Work Phone: [facility] 05-19-2024 15:02-0500 Body temperature 97.3 [degF] Chair Cleveland Work Phone: [facility] 05-19-2024 15:02-0500 Diastolic blood pressure 63 mm[Hg] Chair Cleveland Work Phone: [facility] 05-19-2024 15:02-0500 Heart rate 73 /min Chair Cleveland Work Phone: [facility] 05-19-2024 15:02-0500 Respiratory rate 20 /min Chair Cleveland Work Phone: [facility] 05-19-2024 15:02-0500 SaO2% (BldA) [Mass fraction] 98 % Chair Cleveland Work Phone: [facility] Comment on above: 05-19-2024 15:02-0500 Systolic blood pressure 114 mm[Hg] Chair Cleveland Work Phone: [facility] 04-26-2024 09:31-0500 Body temperature 97.59 [degF] Ma Sand Work Phone: [facility] 04-26-2024 09:31-0500 Diastolic blood pressure 78 mm[Hg] Ma Sand Work Phone: [facility] Comment on above: Manual 04-26-2024 09:31-0500 Heart rate 66 /min Ma Sand Work Phone: [facility] 04-26-2024 09:31-0500 Respiratory rate 16 /min Ma Sand Work Phone: [facility] 04-26-2024 09:31-0500 SaO2% (BldA) [Mass fraction] 99 % Ma Sand Work Phone: [facility] 04-26-2024 09:31-0500 Systolic blood pressure 122 mm[Hg] Cele Marsahll Work Phone: [facility] Comment on above: Manual 04-10-2024 10:12-0500 Body height 170.2 cm Gordo Barfield MD Work Phone: [facility] 04-10-2024 10:12-0500 Body mass index (BMI) [Ratio] 44.95 kg/m2 Gordo Barfield MD Work Phone: [facility] 04-10-2024 10:12-0500 Body weight 130.18 kg Gordo Barfield MD Work Phone: [facility] 04-10-2024 10:12-0500 Diastolic blood pressure 70 mm[Hg] Gordo Barfield MD Work Phone: [facility] 04-10-2024 10:12-0500 Systolic blood pressure 110 mm[Hg] Gordo Barfield MD Work Phone: [facility] 04-06-2024 10:00-0500 Body height 170.2 cm Hayden Arciniega MD Work Phone: [facility] 04-06-2024 10:00-0500 Body mass index (BMI) [Ratio] 43.07 kg/m2 Hayden Arciniega MD Work Phone: [facility] 04-06-2024 10:00-0500 Body temperature 97 [degF] Hayden Arciniega MD Work Phone: [facility] 04-06-2024 10:00-0500 Body weight 124.74 kg Hayden Arciniega MD Work Phone: [facility] 04-06-2024 10:00-0500 Diastolic blood pressure 80 mm[Hg] Hayden Arciniega MD Work Phone: [facility] 04-06-2024 10:00-0500 Heart rate 86 /min Hayden Arciniega MD Work Phone: [facility] 04-06-2024 10:00-0500 SaO2% (BldA) [Mass fraction] 97 % Hayden Arciniega MD Work Phone: [facility] 04-06-2024 10:00-0500 Systolic blood pressure 136 mm[Hg] Hayden Arciniega MD Work Phone: [facility] 04-02-2024 13:27-0500 Body mass index (BMI) [Ratio] 45.42 kg/m2 Marky Mike DO Work Phone: [facility] 04-02-2024 13:27-0500 Body temperature 98.71 [degF] Marky Mike DO Work Phone: [facility] 04-02-2024 13:27-0500 Body weight 131.54 kg Marky Mike DO Work Phone: [facility] 04-02-2024 13:27-0500 Diastolic blood pressure 90 mm[Hg] Marky Mike DO Work Phone: [facility] 04-02-2024 13:27-0500 Heart rate 78 /min Marky Mike DO Work Phone: [facility] 04-02-2024 13:27-0500 SaO2% (BldA) [Mass fraction] 99 % Marky Mike DO Work Phone: [facility] 04-02-2024 13:27-0500 Systolic blood pressure 132 mm[Hg] Marky Mike DO Work Phone: [facility] 03-23-2024 14:35-0400 Body mass index (BMI) [Ratio] 44.17 kg/m2 Oly WARREN Work Phone: [facility] 03-23-2024 14:35-0400 Body weight 127.91 kg Oly WARREN Work Phone: [facility] 03-23-2024 14:35-0400 Diastolic blood pressure 76 mm[Hg] Oly WARREN Work Phone: [facility] 03-23-2024 14:35-0400 Systolic blood pressure 122 mm[Hg] Oly WARREN Work Phone: [facility] 03-23-2024 10:11-0400 Body height 170.2 cm Ma Sand Work Phone: [facility] 03-23-2024 10:11-0400 Body mass index (BMI) [Ratio] 43.06 kg/m2 Ma Sand Work Phone: [facility] 03-23-2024 10:11-0400 Body temperature 97.59 [degF] Ma Sand Work Phone: [facility] 03-23-2024 10:11-0400 Body weight 124.74 kg Ma Sand Work Phone: [facility] 03-23-2024 10:11-0400 Diastolic blood pressure 85 mm[Hg] Ma Sand Work Phone: [facility] 03-23-2024 10:11-0400 Heart rate 71 /min Ma Sand Work Phone: [facility] 03-23-2024 10:11-0400 Respiratory rate 16 /min Ma Sand Work Phone: [facility] 03-23-2024 10:11-0400 SaO2% (BldA) [Mass fraction] 94 % Ma Sand Work Phone: [facility] 03-23-2024 10:11-0400 Systolic blood pressure 135 mm[Hg] Ma Sand Work Phone: [facility] 03-16-2024 11:24-0400 Body mass index (BMI) [Ratio] 43.67 kg/m2 Luan Skip DO Work Phone: [facility] 03-16-2024 11:24-0400 Body weight 126.46 kg Luan Skip DO Work Phone: [facility] [employer] 03-16-2024 11:24-0400 Diastolic blood pressure 70 mm[Hg] Luan Skip DO Work Phone: [facility] 03-16-2024 11:24-0400 Systolic blood pressure 120 mm[Hg] Luan Skip DO Work Phone: [facility] 03-16-2024 09:20-0400 Body height 170.18 cm BATTERY CHARGER TESTER-C Gay Enciso Work Phone: [facility] 03-16-2024 09:20-0400 Body mass index (BMI) [Ratio] 43 kg/m2 BATTERY CHARGER TESTER-C Gay Johnmer Work Phone: [facility] 03-16-2024 09:20-0400 Body weight 124.73 kg BATTERY CHARGER TESTER-C Gay Johnmer Work Phone: [facility] 02-21-2024 11:04-0400 Body temperature 97.2 [degF] Ma Sand Work Phone: [facility] 02-21-2024 11:04-0400 Diastolic blood pressure 68 mm[Hg] Ma Sand Work Phone: [facility] Comment on above: manual 02-21-2024 11:04-0400 Heart rate 95 /min Ma Sand Work Phone: [facility] 02-21-2024 11:04-0400 Respiratory rate 16 /min Ma Sand Work Phone: [facility] 02-21-2024 11:04-0400 SaO2% (BldA) [Mass fraction] 98 % Ma Sand Work Phone: [facility] 02-21-2024 11:04-0400 Systolic blood pressure 102 mm[Hg] Ma Sand Work Phone: [facility] Comment on above: manual 02-16-2024 09:23-0400 Diastolic blood pressure 72 mm[Hg] BATTERY CHARGER TESTER-C Gay Johnmer Work Phone: [facility] 02-16-2024 09:23-0400 Heart rate 70 /min BATTERY CHARGER TESTER-C Gayjimmy Johnmer Work Phone: [facility] 02-16-2024 09:23-0400 Respiratory rate 16 /min BATTERY CHARGER TESTER-C Gay Britt Work Phone: [facility] 02-16-2024 09:23-0400 SaO2% (BldA) [Mass fraction] 96 % BATTERY CHARGER TESTER-C Gay Britt Work Phone: [facility] 02-16-2024 09:23-0400 Systolic blood pressure 126 mm[Hg] BATTERY CHARGER TESTER-C Gay Enciso Work Phone: [facility] 02-16-2024 07:27-0400 Body height 170.18 cm BATTERY CHARGER TESTER-C Gay Enciso Work Phone: [facility] 02-16-2024 07:27-0400 Body weight 122.46 kg BATTERY CHARGER TESTER-C Gay Enciso Work Phone: [facility] 01-28-2024 11:31-0400 Body weight 126.6 kg [facility] 01-28-2024 11:31-0400 Diastolic blood pressure 80 mm[Hg] [facility] 01-28-2024 11:31-0400 Heart rate 69 /min [facility] 01-28-2024 11:31-0400 SaO2% (BldA) [Mass fraction] 98 % [facility] 01-28-2024 11:31-0400 Systolic blood pressure 120 mm[Hg] [facility] 01-25-2024 11:30-0400 Body temperature 97.39 [degF] Ma Sand Work Phone: [facility] 01-25-2024 11:30-0400 Diastolic blood pressure 67 mm[Hg] Ma Sand Work Phone: [facility] 01-25-2024 11:30-0400 Heart rate 68 /min Ma Sand Work Phone: [facility] 01-25-2024 11:30-0400 Respiratory rate 16 /min Ma Sand Work Phone: [facility] 01-25-2024 11:30-0400 SaO2% (BldA) [Mass fraction] 99 % Ma Sand Work Phone: [facility] 01-25-2024 11:30-0400 Systolic blood pressure 92 mm[Hg] Ma Sand Work Phone: [facility] 12-27-2023 11:16-0400 Diastolic blood pressure 68 mm[Hg] Neda Liz PA-C Work Phone: [facility] 12-27-2023 11:16-0400 Systolic blood pressure 98 mm[Hg] Neda Liz PA-C Work Phone: [facility] 12-27-2023 11:02-0400 Body height 170.2 cm Neda Liz PA-C Work Phone: [facility] 12-27-2023 11:02-0400 Body mass index (BMI) [Ratio] 43.08 kg/m2 Neda Liz PA-C Work Phone: [facility] 12-27-2023 11:02-0400 Body temperature 97.7 [degF] Neda Liz PA-C Work Phone: [facility] 12-27-2023 11:02-0400 Body weight 124.8 kg Neda Liz PA-C Work Phone: [facility] 12-27-2023 11:02-0400 Heart rate 89 /min Neda Liz PA-C Work Phone: [facility] 12-27-2023 11:02-0400 Respiratory rate 16 /min Neda Liz PA-C Work Phone: [facility] 12-27-2023 11:02-0400 SaO2% (BldA) [Mass fraction] 98 % Neda Liz PA-C Work Phone: [facility] 12-16-2023 14:13-0400 Body height 170.18 cm [facility] 12-16-2023 14:13-0400 Body mass index (BMI) [Ratio] 42.7 kg/m2 [facility] 12-16-2023 14:13-0400 Body temperature 98.6 [degF] [facility] 12-16-2023 14:13-0400 Body weight 123.83 kg [facility] 12-16-2023 14:13-0400 Diastolic blood pressure 73 mm[Hg] [facility] 12-16-2023 14:13-0400 Heart rate 75 /min [facility] 12-16-2023 14:13-0400 Systolic blood pressure 106 mm[Hg] [facility] 11-29-2023 13:43-0400 Body temperature 97.59 [degF] Ma Sand Work Phone: [facility] 11-29-2023 13:43-0400 Diastolic blood pressure 51 mm[Hg] Ma Sand Work Phone: [facility] 11-29-2023 13:43-0400 Heart rate 73 /min Ma Sand Work Phone: [facility] 11-29-2023 13:43-0400 Respiratory rate 16 /min Ma Sand Work Phone: [facility] 11-29-2023 13:43-0400 SaO2% (BldA) [Mass fraction] 96 % Ma Sand Work Phone: [facility] 11-29-2023 13:43-0400 Systolic blood pressure 83 mm[Hg] Ma Sand Work Phone: [facility] 11-04-2023 13:55-0400 Body height 170.18 cm [facility] 11-04-2023 13:55-0400 Body temperature 97.3 [degF] [facility] 11-04-2023 13:55-0400 Diastolic blood pressure 54 mm[Hg] [facility] 11-04-2023 13:55-0400 Heart rate 62 /min [facility] 11-04-2023 13:55-0400 Systolic blood pressure 104 mm[Hg] [facility] 10-27-2023 14:44-0400 Body temperature 97 [degF] Ma Sand Work Phone: [facility] 10-27-2023 14:44-0400 Diastolic blood pressure 72 mm[Hg] Ma Sand Work Phone: [facility] 10-27-2023 14:44-0400 Heart rate 97 /min Ma Sand Work Phone: [facility] 10-27-2023 14:44-0400 Respiratory rate 18 /min Ma Sand Work Phone: [facility] 10-27-2023 14:44-0400 SaO2% (BldA) [Mass fraction] 97 % Ma Sand Work Phone: [facility] 10-27-2023 14:44-0400 Systolic blood pressure 110 mm[Hg] Ma Sand Work Phone: [facility] 10-20-2023 13:10-0400 Body height 170.18 cm [facility] 10-20-2023 13:10-0400 Body mass index (BMI) [Ratio] 43.2 kg/m2 [facility] 10-20-2023 13:10-0400 Body temperature 97.3 [degF] [facility] 10-20-2023 13:10-0400 Body weight 125.19 kg [facility] 10-20-2023 13:10-0400 Diastolic blood pressure 54 mm[Hg] [facility] 10-20-2023 13:10-0400 Heart rate 74 /min [facility] 10-20-2023 13:10-0400 Systolic blood pressure 111 mm[Hg] [facility] 09-30-2023 10:48-0400 Body temperature 97 [degF] Ma Sand Work Phone: [facility] 09-30-2023 10:48-0400 Diastolic blood pressure 82 mm[Hg] Ma Sand Work Phone: [facility] 09-30-2023 10:48-0400 Heart rate 71 /min Ma Sand Work Phone: [facility] 09-30-2023 10:48-0400 Respiratory rate 18 /min Ma Sand Work Phone: [facility] 09-30-2023 10:48-0400 SaO2% (BldA) [Mass fraction] 97 % Ma Sand Work Phone: [facility] 09-30-2023 10:48-0400 Systolic blood pressure 132 mm[Hg] Ma Sand Work Phone: [facility] 09-22-2023 14:41-0400 Body weight 117.93 kg [facility] 08-31-2023 10:34-0400 Body temperature 97.3 [degF] Ma Sand Work Phone: [facility] 08-31-2023 10:34-0400 Diastolic blood pressure 66 mm[Hg] Ma Sand Work Phone: [facility] 08-31-2023 10:34-0400 Heart rate 68 /min Ma Sand Work Phone: [facility] 08-31-2023 10:34-0400 Respiratory rate 18 /min Ma Sand Work Phone: [facility] 08-31-2023 10:34-0400 SaO2% (BldA) [Mass fraction] 99 % Ma Sand Work Phone: [facility] 08-31-2023 10:34-0400 Systolic blood pressure 105 mm[Hg] Ma Sand Work Phone: [facility] 08-05-2023 11:15-0400 Body temperature 97.39 [degF] Ma Sand Work Phone: [facility] 08-05-2023 11:15-0400 Diastolic blood pressure 41 mm[Hg] Ma Sand Work Phone: [facility] 08-05-2023 11:15-0400 Heart rate 68 /min Ma Sand Work Phone: [facility] 08-05-2023 11:15-0400 Respiratory rate 18 /min Ma Sand Work Phone: [facility] 08-05-2023 11:15-0400 SaO2% (BldA) [Mass fraction] 98 % Ma Sand Work Phone: [facility] 08-05-2023 11:15-0400 Systolic blood pressure 98 mm[Hg] Ma Sand Work Phone: [facility] 07-13-2023 11:49-0500 Body temperature 97.5 [degF] Ma Sand Work Phone: [facility] 07-13-2023 11:49-0500 Diastolic blood pressure 74 mm[Hg] Ma Sand Work Phone: [facility] 07-13-2023 11:49-0500 Heart rate 83 /min Ma Sand Work Phone: [facility] 07-13-2023 11:49-0500 Respiratory rate 18 /min Ma Sand Work Phone: [facility] 07-13-2023 11:49-0500 SaO2% (BldA) [Mass fraction] 96 % Ma Sand Work Phone: [facility] 07-13-2023 11:49-0500 Systolic blood pressure 109 mm[Hg] Ma Sand Work Phone: [facility] 07-13-2023 10:01-0500 Diastolic blood pressure 65 mm[Hg] Lois Holm MD Work Phone: [facility] 07-13-2023 10:01-0500 Systolic blood pressure 105 mm[Hg] Lois Holm MD Work Phone: [facility] 07-13-2023 09:41-0500 Body height 170.2 cm Lois Holm MD Work Phone: [facility] 07-13-2023 09:41-0500 Body mass index (BMI) [Ratio] 43.85 kg/m2 Lois Holm MD Work Phone: [facility] 07-13-2023 09:41-0500 Body weight 127.01 kg Lois Holm MD Work Phone: [facility] 07-13-2023 09:41-0500 Heart rate 71 /min Lois Holm MD Work Phone: [facility] 07-06-2023 14:48-0500 Body mass index (BMI) [Ratio] 41.81 kg/m2 Kade Richardson MD Work Phone: [facility] 07-06-2023 14:48-0500 Body weight 119.3 kg Kade Ricahrdson MD Work Phone: [facility] 06-09-2023 08:45-0500 Body height 170.2 cm Michelle Jasmine MANAGER OF HEALTH-PRINTING GRAY CLOTH TENDER Work Phone: [facility] 06-09-2023 08:45-0500 Body mass index (BMI) [Ratio] 44.48 kg/m2 Michelle Jasmine MANAGER OF HEALTH-PRINTING G[employer] CLOTH TENDER Work Phone: [facility] 06-09-2023 08:45-0500 Body weight 128.82 kg Michelle Mitali MANAGER OF HEALTH-PRINTING G[employer] CLOTH TENDER Work Phone: [facility] 06-09-2023 08:45-0500 Diastolic blood pressure 82 mm[Hg] Michelle Mitali MANAGER OF HEALTH-PRINTING G[employer] CLOTH TENDER Work Phone: [facility] 06-09-2023 08:45-0500 Heart rate 80 /min Michelle Jasmine MANAGER OF HEALTH-PRINTING [employer]OTH TENDER Work Phone: [facility] 06-09-2023 08:45-0500 Systolic blood pressure 146 mm[Hg] Michelle Sharpeel MANAGER OF HEALTH-PRINTING [employer]OTH TENDER Work Phone: [facility] 05-26-2023 17:17-0500 Body weight 123.83 kg Christie Phan MD Work Phone: [facility] 04-26-2023 14:42-0500 Body weight 125.19 kg Christie Phan MD Work Phone: [facility] 03-19-2023 11:16-0400 Body temperature 97.7 [degF] Ma Sand Work Phone: [facility] 03-19-2023 11:16-0400 Diastolic blood pressure 54 mm[Hg] Ma Sand Work Phone: [facility] 03-19-2023 11:16-0400 Heart rate 75 /min Ma Sand Work Phone: [facility] 10-27-2023 11:16-0400 Respiratory rate 16 /min Ma Sand Work Phone: [facility] 03-19-2023 11:16-0400 SaO2% (BldA) [Mass fraction] 96 % Ma Sand Work Phone: [facility] 03-19-2023 11:16-0400 Systolic blood pressure 111 mm[Hg] Ma Sand Work Phone: [facility] 02-19-2023 10:56-0400 Body height 170.2 cm Vera Najera MD Work Phone: [facility] 02-19-2023 10:56-0400 Body temperature 97.39 [degF] Vera Najera MD Work Phone: [facility] 02-19-2023 10:56-0400 Body weight 120.75 kg Vera Najera MD Work Phone: [facility] 02-19-2023 10:56-0400 Diastolic blood pressure 69 mm[Hg] Vera Najera MD Work Phone: [facility] 02-19-2023 10:56-0400 Heart rate 110 /min Vera Najera MD Work Phone: [facility] 02-19-2023 10:56-0400 Respiratory rate 16 /min Vera Najera MD Work Phone: [facility] 02-19-2023 10:56-0400 SaO2% (BldA) [Mass fraction] 96 % Vera Najera MD Work Phone: [facility] [facility] 02-19-2023 10:56-0400 Systolic blood pressure 132 mm[Hg] Vera Najera MD Work Phone: [facility] 01-22-2023 12:09-0400 Diastolic blood pressure 76 mm[Hg] Ma Sand Work Phone: [facility] 01-22-2023 12:09-0400 Systolic blood pressure 107 mm[Hg] Ma Sand Work Phone: [facility] 01-22-2023 12:08-0400 Body temperature 97.59 [degF] Ma Sand Work Phone: [facility] 01-22-2023 12:08-0400 Heart rate 102 /min Ma Sand Work Phone: [facility] 01-22-2023 12:08-0400 Respiratory rate 16 /min Ma Sand Work Phone: [facility] 01-22-2023 12:08-0400 SaO2% (BldA) [Mass fraction] 97 % Ma Sand Work Phone: [facility] 11-19-2022 11:00-0400 Body temperature 97.2 [degF] Ma Sand Work Phone: [facility] 11-19-2022 11:00-0400 Diastolic blood pressure 54 mm[Hg] Ma Sand Work Phone: [facility] 11-19-2022 11:00-0400 Heart rate 98 /min Ma Sand Work Phone: [facility] 11-19-2022 11:00-0400 Respiratory rate 16 /min Ma Sand Work Phone: [facility] 11-19-2022 11:00-0400 SaO2% (BldA) [Mass fraction] 98 % Ma Sand Work Phone: [facility] 11-19-2022 11:00-0400 Systolic blood pressure 126 mm[Hg] Ma Sand Work Phone: [facility] 10-22-2022 11:51-0400 Body height 170.2 cm Ma Sand Work Phone: [facility] 10-22-2022 11:51-0400 Body weight 120.66 kg Ma Sand Work Phone: [facility] 10-22-2022 11:51-0400 Respiratory rate 16 /min Ma Sand Work Phone: [facility] 10-22-2022 10:50-0400 Body height 170.2 cm Vera Najera MD Work Phone: [facility] 10-22-2022 10:50-0400 Body temperature 97 [degF] Vera Najera MD Work Phone: [facility] 10-22-2022 10:50-0400 Body weight 120.75 kg Vera Najera MD Work Phone: [facility] 10-22-2022 10:50-0400 Diastolic blood pressure 55 mm[Hg] Vera Najera MD Work Phone: [facility] 10-22-2022 10:50-0400 Heart rate 78 /min Vera Najera MD Work Phone: [facility] 10-22-2022 10:50-0400 Respiratory rate 16 /min Vera Najera MD Work Phone: [facility] 10-22-2022 10:50-0400 SaO2% (BldA) [Mass fraction] 98 % Vera Najera MD Work Phone: [facility] 10-22-2022 10:50-0400 Systolic blood pressure 132 mm[Hg] Vera Najera MD Work Phone: [facility] 09-24-2022 10:22-0400 Body height 170.2 cm Ma Sand Work Phone: [facility] 09-24-2022 10:22-0400 Body temperature 97 [degF] Ma Sand Work Phone: [facility] 09-24-2022 10:22-0400 Body weight 120.2 kg Ma Sand Work Phone: [facility] 09-24-2022 10:22-0400 Diastolic blood pressure 81 mm[Hg] Ma Sand Work Phone: [facility] 09-24-2022 10:22-0400 Heart rate 77 /min Ma Sand Work Phone: [facility] 05-04-2023 10:22-0400 Respiratory rate 16 /min Ma Sand Work Phone: [facility] 09-24-2022 10:22-0400 SaO2% (BldA) [Mass fraction] 97 % Ma Sand Work Phone: [facility] 09-24-2022 10:22-0400 Systolic blood pressure 116 mm[Hg] Ma Sand Work Phone: [facility] 09-07-2022 14:03-0400 Body weight 120.2 kg Christie Phan MD Work Phone: [facility] 08-27-2022 09:45-0400 Body height 170.2 cm Rebekah Rojas APRN.[employer]ING [employer]OTH TENDER Work Phone: [facility] 08-27-2022 09:45-0400 Body temperature 97.7 [degF] Rebekah Rojas APRN.[employer]ING [employer] TENDER Work Phone: [facility] 08-27-2022 09:45-0400 Body weight 118.66 kg Rebekah Rojas APRN.[employer]ING [employer] TENDER Work Phone: [facility] 08-27-2022 09:45-0400 Diastolic blood pressure 55 mm[Hg] Rebekah Rojas APRN.[employer]ING [employer] TENDER Work Phone: [facility] 08-27-2022 09:45-0400 Heart rate 63 /min Rebekah Rojas APRN.PRINTING [employer] TENDER Work Phone: [facility] 08-27-2022 09:45-0400 Respiratory rate 16 /min Rebekah Rojas APRN.PRINTING [employer] TENDER Work Phone: [facility] 08-27-2022 09:45-0400 SaO2% (BldA) [Mass fraction] 96 % Rebekah Rojas APRN.PRINTING G[employer]OTH TENDER Work Phone: [facility] 08-27-2022 09:45-0400 Systolic blood pressure 117 mm[Hg] Rebekah Rojas APRN.PRINTING [employer] T[employer]ER Work Phone: [facility] 05-20-2022 13:28-0500 Body height 170.2 cm Vera Najera MD Work Phone: [facility] 05-20-2022 13:28-0500 Body temperature 97.7 [degF] Vera Najera MD Work Phone: [facility] 05-20-2022 13:28-0500 Diastolic blood pressure 70 mm[Hg] Vera Najera MD Work Phone: [facility] 05-20-2022 13:28-0500 Heart rate 93 /min Vera Najera MD Work Phone: [facility] 05-20-2022 13:28-0500 Respiratory rate 16 /min Vera Najera MD Work Phone: [facility] 05-20-2022 13:28-0500 SaO2% (BldA) [Mass fraction] 97 % Vera Najera MD Work Phone: [facility] 05-20-2022 13:28-0500 Systolic blood pressure 127 mm[Hg] Vera Najera MD Work Phone: [facility] 03-18-2022 10:49-0400 Body height 170.2 cm Vera Najera MD Work Phone: [facility] 03-18-2022 10:49-0400 Body temperature 97.81 [degF] Vera Najera MD Work Phone: [facility] 03-18-2022 10:49-0400 Body weight 113.4 kg Vera Najera MD Work Phone: [facility] 03-18-2022 10:49-0400 Diastolic blood pressure 49 mm[Hg] Vera Najera MD Work Phone: [facility] 03-18-2022 10:49-0400 Heart rate 86 /min Vera Najera MD Work Phone: [facility] 03-18-2022 10:49-0400 Respiratory rate 16 /min Vera Najera MD Work Phone: [facility] 03-18-2022 10:49-0400 SaO2% (BldA) [Mass fraction] 98 % Vera Najera MD Work Phone: [facility] 03-18-2022 10:49-0400 Systolic blood pressure 145 mm[Hg] Vera Najera MD Work Phone: [facility] 03-09-2022 11:41-0400 Body height 170.2 cm Christie Phan MD Work Phone: [facility] 03-09-2022 11:41-0400 Body weight 112.49 kg Christie Phan MD Work Phone: [facility] 03-09-2022 11:41-0400 Diastolic blood pressure 100 mm[Hg] Christie Phan MD Work Phone: [facility] 03-09-2022 11:41-0400 Systolic blood pressure 158 mm[Hg] Christie Phan MD Work Phone: [facility] 03-04-2022 10:39-0400 Body height 170.2 cm Vera Najera MD Work Phone: [facility] 03-04-2022 10:39-0400 Body temperature 97.5 [degF] Vera Najera MD Work Phone: [facility] 03-04-2022 10:39-0400 Body weight 112.76 kg Vera Najera MD Work Phone: [facility] 03-04-2022 10:39-0400 Diastolic blood pressure 48 mm[Hg] Vera Najera MD Work Phone: [facility] 03-04-2022 10:39-0400 Heart rate 79 /min Vera Najera MD Work Phone: [facility] 03-04-2022 10:39-0400 Respiratory rate 16 /min Vera Najera MD Work Phone: [facility] 03-04-2022 10:39-0400 SaO2% (BldA) [Mass fraction] 99 % Vera Najera MD Work Phone: [facility] 03-04-2022 10:39-0400 Systolic blood pressure 132 mm[Hg] Vera Najera MD Work Phone: [facility] 11-26-2021 16:00-0400 Body height 168.91 cm Mirela Buffy Other [employer] Other 11-26-2021 16:00-0400 Body mass index (BMI) [Ratio] 37.68 kg/m2 Mirela Buffy Other [employer] Other 11-26-2021 16:00-0400 Body temperature 98.4 [degF] Mirela Buffy Other [employer] Other 11-26-2021 16:00-0400 Body weight 107.5 kg Mirela Kelsey Other [employer] Other 11-26-2021 16:00-0400 Diastolic blood pressure 61 mm[Hg] Mirela Buffy Other [employer] Other 11-26-2021 16:00-0400 Systolic blood pressure 115 mm[Hg] Mirela Kelsey Other [employer] Other 10-24-2021 08:18-0400 Body weight 108.86 kg Lynne Ni MD Work Phone: [facility] 10-24-2021 08:18-0400 Diastolic blood pressure 42 mm[Hg] Lynne Ni MD Work Phone: [facility] 10-24-2021 08:18-0400 Heart rate 72 /min Lynne Ni MD Work Phone: [facility] 10-24-2021 08:18-0400 Systolic blood pressure 106 mm[Hg] Lynne Ni MD Work Phone: [facility] 10-15-2021 15:45-0400 Body height 168.91 cm Mirela Buffy Other [employer] Other 10-15-2021 15:45-0400 Body mass index (BMI) [Ratio] 38.31 kg/m2 Mirela Kelsey Other [employer] Other 10-15-2021 15:45-0400 Body temperature 98.1 [degF] Mirela Kelsey Other [employer] Other 10-15-2021 15:45-0400 Body weight 109.32 kg Mirela Kelsey Other [employer] Other 10-15-2021 15:45-0400 Diastolic blood pressure 60 mm[Hg] Mirela Kelsey Other [employer] Other 10-15-2021 15:45-0400 Systolic blood pressure 114 mm[Hg] Mirela Buffy Other [employer] Other 09-11-2021 15:15-0400 Body height 168.91 cm Mirela Buffy Other [employer] Other 09-11-2021 15:15-0400 Body mass index (BMI) [Ratio] 37.99 kg/m2 Mirela Kelsey Other [employer] Other 09-11-2021 15:15-0400 Body temperature 97.9 [degF] Mirela Kelsey Other [employer] Other 09-11-2021 15:15-0400 Body weight 108.41 kg Mirela Buffy Other [employer] Other 09-11-2021 15:15-0400 Diastolic blood pressure 83 mm[Hg] Mirela Kelsey Other [employer] Other 09-11-2021 15:15-0400 Systolic blood pressure 144 mm[Hg] Mirela Kelsey Other [employer] Other 10-07-2020 12:45-0400 Diastolic blood pressure 78 mm[Hg] [facility] Phone: 10-07-2020 12:45-0400 Heart rate 68 /min [facility] Phone: 10-07-2020 12:45-0400 SaO2% (BldA) [Mass fraction] 99 % [facility] Phone: 10-07-2020 12:45-0400 Systolic blood pressure 112 mm[Hg] [facility] Phone: 10-07-2020 10:45-0400 Respiratory rate 22 /min [facility] Phone: 10-07-2020 09:01-0400 Body height 170.2 cm [facility] Phone: 10-07-2020 09:01-0400 Body mass index (BMI) [Ratio] 36.65 kg/m2 [facility] Phone: 10-07-2020 09:01-0400 Body temperature 97.81 [degF] [facility] Phone: 10-07-2020 09:01-0400 Body weight 106.14 kg [facility] [employer] Phone: Encounters Encounter Date Encounter Type Care Provider Facility Start: 02-28-2025 End: 02-28-2025 Office outpatient new 45 minutes Terence Blum MD Work Phone: [facility] Comment on above: Pilonidal abscess (Primary Dx); Pilonidal cyst Start: 02-26-2025 End: 02-26-2025 ambulatory Gay Enciso [employer]TER[employer]GER TE[employer]-C Work Phone: [facility] Work Phone: Start: 02-26-2025 End: 02-26-2025 Departed Referred Mathew Ji MD -[facility] Start: 02-21-2025 End: 02-22-2025 ambulatory VERA ABHYANKAR Facility:[facility] Start: 02-14-2025 End: 02-14-2025 Office outpatient visit 15 minutes Bernabe English MD Work Phone: [facility] Comment on above: Pilonidal cyst (Primary Dx); Hidradenitis suppurativa Start: 02-14-2025 End: 02-14-2025 ambulatory BERNABE ENGLISH Not Available Start: 02-14-2025 End: 02-14-2025 Bamboo flowsheet Bernabe English MD Work Phone: [facility] Start: 02-14-2025 End: 02-14-2025 Bamderik flowsheet Bernabe English MD Work Phone: [facility] Start: 02-14-2025 End: 02-14-2025 ambulatory Gay Enciso BATTERY CHARGER TESTER-C Work Phone: [facility] Work Phone: Start: 02-14-2025 End: 02-14-2025 Patient encounter procedure Margie Arnett NP -[facility] Work Phone: Start: 02-08-2025 End: 02-09-2025 ambulatory LYNNE NI Facility:[facility] Start: 01-31-2025 End: 01-31-2025 Admission to same day surgery center Adolfo Kang MD -[facility] Work Phone: Start: 01-31-2025 End: 01-31-2025 ambulatory Gay Enciso BATTERY CHARGER TESTER-C Work Phone: [facility] Work Phone: Start: 01-31-2025 Non-patient / Non-visit Adolfo Kang MD -[facility] Work Phone: Start: 01-26-2025 [...] Start: 01-17-2025 End: 01-17-2025 ambulatory Gay Enciso BATTERY CHARGER TESTER-C Work Phone: [facility] Work Phone: Start: 01-17-2025 End: 01-17-2025 Patient encounter procedure Margie Arnett NP -[facility] Work Phone: Start: 01-11-2025 End: 01-12-2025 ambulatory Chair 16 [place] Work Phone: Hematology/Oncology Comment on above: Other systemic lupus erythematosus with other organ involvement (HCC) (Primary Dx); Elevated LFTs; Anemia of chronic disease; Elevated sed rate; Elevated C-reactive protein (CRP); Vitamin D deficiency; Vitamin B12 deficiency; Screening-pulmonary TB Start: 12-27-2024 End: 12-27-2024 ambulatory VERA NAJERA Facility:[facility] Start: 12-14-2024 End: 12-14-2024 [facility] Work Phone: Neurology Comment on above: CMN Start: 12-14-2024 End: 12-15-2024 ambulatory Chair 16 [place] Work Phone: Hematology/Oncology Comment on above: Other systemic lupus erythematosus with other organ involvement (HCC) (Primary Dx) Start: 12-12-2024 End: 12-12-2024 Patient encounter procedure Bandar Batista APRN -[facility] Work Phone: Start: 11-30-2024 End: 11-30-2024 Follow-up encounter Vaibhav Carvalho APRN.PRINTING G[employer]OTH TENDER Work Phone: Hematology/Oncology Comment on above: Results Start: 11-30-2024 End: 11-30-2024 ambulatory Gay Enciso BATTERY CHARGER TESTER-C Work Phone: [facility] Work Phone: Start: 11-30-2024 End: 11-30-2024 Patient encounter procedure Margie Arnett -[facility] Work Phone: Start: 11-29-2024 End: 11-29-2024 Office outpatient visit 25 minutes Vaibhav Carvalho APRN.PRINTING [employer] TENDER Work Phone: Hematology/Oncology Comment on above: Hypogammaglobulinemia [...] Not Available Start: 11-22-2024 ambulatory Janes Barfield Facility:[facility] Start: 11-22-2024 Registered Recurring Janes Barfield MD -[facility] Start: 11-21-2024 End: 11-21-2024 ambulatory Gay Estrada Britt BATTERY CHARGER TESTER-C Work Phone: [facility] Work Phone: Start: 11-21-2024 End: 11-21-2024 Patient encounter procedure Adolfo Kang MD -[facility] Work Phone: Start: 11-21-2024 Non-patient / Non-visit Adolfo Kang MD -[facility] Work Phone: Start: 11-20-2024 End: 11-20-2024 Telephone encounter Vaibhav Carvalho APRN.CNP Work Phone: Hematology/Oncology Comment on above: Lab Orders Start: 11-16-2024 End: 11-17-2024 ambulatory Chair 16 [place] Work Phone: Hematology/Oncology Comment on above: Other systemic lupus erythematosus with other organ involvement (HCC) (Primary Dx) Start: 11-15-2024 End: 11-20-2024 Telephone encounter Cesilia Whalen [facility] Work Phone: [facility] Start: 11-13-2024 End: 11-13-2024 Patient encounter procedure Adolfo Kang MD -[facility] Work Phone: Start: 10-31-2024 End: 10-31-2024 ambulatory Chair 2 [place] Work Phone: Hematology/Oncology Comment on above: Elevated sed rate (Primary Dx); Megaloblastic anemia due to vitamin B12 deficiency; Frequent infections; Hypogammaglobulinemia (HCC); Bilateral leg weakness; Discoid lupus erythematosus Start: 10-19-2024 End: 10-19-2024 ambulatory Chair 14 [place] Work Phone: Hematology/Oncology Comment on above: Other systemic lupus erythematosus with other organ involvement (HCC) (Primary Dx) Start: 10-17-2024 End: 10-17-2024 ambulatory MANUEL FERRIS Facility:[facility] Start: 10-07-2024 End: 10-07-2024 Patient encounter [...] both feet; Long-term use of high-risk medication; penitentiary 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; Bilateral hand pain; Family history of Crohn's disease; 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; Bilateral wrist pain Start: 10-07-2024 End: 10-07-2024 Telemedicine consultation with patient Lynne Ni MD Work Phone: Rheumatology Start: 10-07-2024 End: 10-07-2024 ambulatory LYNNE NI Facility:[facility] Start: 10-06-2024 End: 10-06-2024 Telephone encounter [...] 09-20-2024 End: 09-20-2024 Specialty Pharmacy Aidee Quintanilla [facility] Comment on above: SPP Inflammatory Conditions - Medication Refill (Benlysta) Start: 09-19-2024 End: 09-19-2024 ambulatory MANUEL FERRIS Facility:[facility] Start: 09-19-2024 End: 09-19-2024 Patient encounter procedure Deborah Dina [facility] Work Phone: [facility] Comment on above: Fibromyalgia (Primary Dx); Family history of disease of aorta; Family history of cancer Generalized articula r hypermobility (Primary Dx); Chronic pain syndrome; Discoid lupus erythematosus; Family history of pneumothorax in son; Family history of cancer; Family history of mild aortic dilation in daughter Start: 09-19-2024 End: 09-19-2024 ambulatory LYNNE NI Facility:[facility] Start: 09-18-2024 End: 09-18-2024 Telephone encounter Vera Najera MD Work Phone: [facility] Comment on above: Future Appointment Start: 09-18-2024 [...] Office outpatient visit 25 minutes Vaibhav Carvalho MANAGER OF HEALTH.PRINTING [employer] TENDER Work Phone: Hematology/Oncology Comment on above: Hypogammaglobulinemia (HCC) (Primary Dx) ; Vitamin B12 deficiency; Other iron deficiency anemia; Megaloblastic anemia due to vitamin B12 deficiency Start: 09-06-2024 End: 09-06-2024 ambulatory VAIBHAV CARVALHO Facility:[facility] Start: 09-04-2024 End: 09-04-2024 Office outpatient visit 25 minutes [facility] MD [facility] Comment on above: Thyroid nodule (CMS/HCC) (Primary Dx); LPRD (laryngopharyngeal reflux disease) Start: 09-04-2024 End: 09-04-2024 ambulatory GORDO BARFIELD Not Available Start: 09-04-2024 End: 09-04-2024 Bamboo flowsheet Gordo Barfield MD [facility] Start: 09-04-2024 End: 09-04-2024 Bamboo flowsheet Gordo Barfield MD [facility] Start: 09-01-2024 End: 09-02-2024 Refill Lynne Ni MD Work Phone: Rheumatology Comment on above: Refill Request Start: 08-29-2024 End: 08-29-2024 ambulatory MANUEL FERRIS Facility:[facility] Start: 08-28-2024 End: 08-28-2024 Telephone encounter Vaibhav Carvalho MANAGER OF HEALTH.[employer]ING [employer] TENDER Work Phone: Hematology/Oncology Comment on above: Lab Orders Start: 08-24-2024 End: 08-24-2024 Clinisync Result Encounter Gordo Barfield MD Work Phone: [facility] External Department Unsolicited Start: 08-24-2024 End: 08-24-2024 Clinisync Result Encounter Gordo Barfield MD Work Phone: [facility] External Department Unsolicited Start: 08-22-2024 End: 08-22-2024 ambulatory Gay Enciso BATTERY CHARGER TESTER-C Work Phone: [facility] Work Phone: Start: 08-22-2024 End: 08-22-2024 Patient encounter procedure Gay Enciso NP-C Work Phone: On [facility] Of [facility] Work Phone: Start: 08-17-2024 End: 08-17-2024 Specialty Pharmacy Aidee Quintanilla [facility] Comment on above: [...] Start: 07-31-2024 End: 07-31-2024 ambulatory Gay Enciso BATTERY CHARGER TESTER-C Work Phone: [facility] Work Phone: Start: 07-31-2024 End: 07-31-2024 Patient encounter procedure Gay Enciso NP-C Work Phone: On License Of [facility] Physician [facility] Work Phone: Start: 07-26-2024 End: 07-26-2024 Office outpatient visit 25 minutes Lois Holm MD Work Phone: [facility] Comment on above: Sinus tachycardia (Primary Dx); Shortness of breath; Paroxysmal supraventricular tachycardia (CMS-HCC); Essential hypertension; Obstructive sleep apnea syndrome; Morbid obesity (Multi); Current smoker Start: 07-26-2024 End: 07-26-2024 ambulatory LOIS [facility] Start: 07-25-2024 End: 07-25-2024 Bamboo [...] 07-25-2024 End: 07-25-2024 Specialty Pharmacy Aidee Quintanilla [facility] Comment on above: SPP Inflammatory [...] Non-patient / Non-visit Gay GALEANO Work Phone: On License Of [facility] Work Phone: Start: 07-19-2024 End: 07-19-2024 Admission to same day surgery center Gay GALEANO Work Phone: [facility] Work Phone: Start: 07-19-2024 End: 07-19-2024 ambulatory Gay GALEANO Work Phone: [facility] Work Phone: Start: 07-12-2024 End: 07-12-2024 ambulatory MARKY BARNES Facility:[facility] Start: 07-12-2024 End: 07-12-2024 Patient encounter procedure Marky LOVEC Work Phone: Otolaryngology Comment on above: LPRD [...] ambulatory [facility] Work Phone: Start: 07-10-2024 End: 07-10-2024 Patient encounter procedure [facility] Work Phone: Start: 07-09-2024 End: 07-10-2024 Telephone encounter Lynne Ni MD Work Phone: Rheumatology Comment on above: Results Start: 06-30-2024 End: 06-30-2024 ambulatory LYNNE NI Facility:[facility] Start: 06-29-2024 End: 06-29-2024 Specialty Pharmacy Aidee Quintanilla [facility] Comment on above: SPP Inflammatory Conditions - Medication Refill (Benlysta) Start: 06-20-2024 End: 06-23-2024 ambulatory [facility] Comment on above: Iron Infusions Start: 06-20-2024 End: 06-21-2024 E-mail encounter from caregiver [facility] Start: 06-20-2024 End: 06-23-2024 Patient encounter procedure Lynne Ni MD Work Phone: Rheumatology Comment on above: Flair Start: 06-16-2024 End: 06-20-2024 Telephone encounter Vaibhav Carvalho APRN.CNP Work Phone: Hematology/Oncology Start: 06-15-2024 End: 06-15-2024 Telephone encounter Oly WARREN Work Phone: [facility] Start: 06-14-2024 End: 06-14-2024 Nursing evaluation of patient and report Breath Test Silverio Cp Nsg Wl Work Phone: [facility] Comment on above: [...] 06-12-2024 End: 06-13-2024 Telephone encounter Vaibhav Carvalho APRN.PRINTING GRAY CLOTH TENDER Work Phone: Hematology/Oncology Comment on above: Lab Orders Start: 06-06-2024 End: 06-06-2024 Bamboo flowsheet Oly WARREN Work Phone: [facility] Start: 06-06-2024 End: 06-10-2024 Bamboo flowsheet Oly WARREN Work Phone: [facility] Start: 06-06-2024 End: 06-10-2024 Clinisync Result Encounter Oly WARREN Work Phone: [facility] External Department Unsolicited Start: 06-06-2024 End: 06-06-2024 Specialty Pharmacy Aidee Quintanilla [facility] Comment on above: SPP Inflammatory [...] End: 05-15-20[address] [facility] Hematology/Oncology Start: 05-12-2024 End: 05-12-2024 Specialty Pharmacy Aidee Quintanilla [facility] Comment on above: SPP Inflammatory Conditions - Medication Refill (Benlysta) Start: 04-28-2024 End: 04-28-2024 Orders Only Pepper Cotter LPN [facility] Comment on above: Peripheral vascular disease, unspecified (CMS-HCC) (Primary Dx); Cold extremities; Systemic lupus erythematosus (CMS-HCC) Start: 04-26-2024 End: 04-26-2024 ambulatory VERA ABHYANKAR Facility:[facility] Start: 04-26-2024 End: 04-26-2024 Nursing evaluation of patient and report Cele Marshall Work Phone: Hematology/Oncology Comment on above: Elevated sed rate (Primary Dx); Megaloblastic anemia due to vitamin B12 deficiency Start: 04-14-2024 End: 10-05-2024 Telephone encounter [facility] Work Phone: [facility] Comment on above: Patient Update; Appointment Start: 04-11-2024 End: 04-11-2024 Specialty Pharmacy Aidee Dwight [facility] Comment on above: SPP Inflammatory Conditions - Medication Refill (Benlysta) Start: 04-10-2024 End: 04-10-2024 Bamboo flowsheet Gordo Barfield MD Work Phone: [facility] Start: 04-10-2024 End: 04-10-2024 Bamderik flowsqian Barfield MD Work Phone: [facility] Start: 04-10-2024 End: 04-10-2024 Telephone encounter Vera Najera MD Work Phone: [facility] Comment on above: Appointment Start: 04-10-2024 End: 04-10-2024 Office outpatient visit 25 minutes Gordo Barfield MD Work Phone: [facility] SELVIN [facility]ANT[facility] Comment on above: LPRD (laryngopharyngeal reflux disease) (Primary Dx); Acute otalgia, right Start: 04-10-2024 End: 04-10-2024 ambulatory GORDO BARFIELD Not Available Start: 04-07-2024 End: 04-07-[address] [facility] Hematology/Oncology Start: 04-06-2024 End: 04-06-2024 Clinisync Result Encounter Oly WARREN Work Phone: [facility] External Department Unsolicited Start: 04-06-2024 End: 04-06-2024 Clinisync Result Encounter Oly WARREN Work Phone: [facility] External Department Unsolicited Start: 04-06-2024 End: 04-06-2024 Office outpatient new 30 minutes Hayden Arciniega MD Work Phone: [facility] Comment on above: Systemic [...] 03-30-2024 ambulatory Maico Douglas MD Work Phone: [facility] Start: 03-27-2024 End: [...] Start: 03-27-2024 End: 03-28-2024 ambulatory VERA NAJERA Facility:[facility] Start: 03-23-2024 End: 03-23-2024 ambulatory OLY PARNELL Not Available Start: 03-23-2024 End: 03-23-2024 Office outpatient visit 15 minutes Oly WARREN Work Phone: [facility] Comment on above: Abnormal uterine bleeding (AUB); Menorrhagia with regular cycle Start: 03-23-2024 End: 03-23-2024 Bamboo flowsheet Oly WARREN Work Phone: [facility] Start: 03-23-2024 End: 03-23-2024 Bamboo flowsheet Oly WARREN Work Phone: [facility] Start: 03-23-2024 End: 03-23-2024 Nursing evaluation of patient and report Ma Nurse Dre Joanna Work Phone: Hematology/Oncology Comment on above: Elevated sed rate (Primary Dx); Megaloblastic anemia due to vitamin B12 deficiency Start: 03-23-2024 End: 03-23-2024 ambulatory MANUEL Batista Gal Facility:[facility] Start: 03-20-2024 End: 03-30-2024 Telephone encounter Akiko Cooper MD Work Phone: [facility] Start: 03-18-2024 End: 03-18-2024 ambulatory LYNNE NI Facility:[facility] Start: 03-18-2024 End: 03-18-2024 Patient encounter [...] both feet; Long-term use of high-risk medication; penitentiary 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; Bilateral hand [...] Not Available Start: 03-16-2024 End: 03-16-2024 ambulatory BATTERY CHARGER TESTER-C Gay Enciso Work Phone: [facility] Work Phone: Start: 03-16-2024 End: 03-16-2024 Patient encounter procedure BATTERY CHARGER TESTER-C Gay Enciso Work Phone: On License Of [facility] Gastroenterology Work Phone: Start: 03-13-2024 End: 03-13-2024 Specialty Pharmacy Aidee Quintanilla [facility] Comment on above: SPP Inflammatory Conditions - Medication Refill (Benlysta - NCA 09/2024) Start: 03-08-2024 End: 03-08-2024 ambulatory [facility] Start: 03-07-2024 End: 03-08-2024 Chart abstracting [facility] Work Phone: Neurology Comment on above: cmn Start: 03-02-2024 End: 03-02-2024 Refill Zita Cuellar BATTERY CHARGER TESTER Work Phone: [facility] 210 Comment on above: Lumbosacral radiculopathy at L5; Degenerative disc disease, lumbar; Cervical radiculopathy at C5 Start: 02-28-2024 End: 02-28-2024 ambulatory BATTERY CHARGER TESTER-C Gay Enciso Work Phone: [facility] Work Phone: Start: 02-28-2024 End: 02-28-2024 Patient encounter procedure BATTERY CHARGER TESTER-C Gay Enciso Work Phone: On License Of [facility] Work Phone: Start: 02-22-2024 End: 02-22-2024 Telephone encounter Oly Elam Ananya Work Phone: [facility] Comment on above: Show Host - Other (Eds scheduling ) Start: 02-21-2024 End: 02-21-2024 Nursing evaluation of patient and report Ma Nurse Dre Marshall Work Phone: Hematology/Oncology Comment on above: Elevated sed rate (Primary Dx); Megaloblastic anemia due to vitamin B12 deficiency Start: 02-18-2024 End: 02-18-2024 Telephone encounter Lynne Ni MD Work Phone: Rheumatology Start: 02-16-2024 Non-patient / Non-visit BATTERY CHARGER TESTER-C Gay Enciso Work Phone: On License Of [facility] Work Phone: Start: 02-16-2024 End: 02-16-2024 Admission to same day surgery center BATTERY CHARGER TESTER-C Gay Enciso Work Phone: [facility] Work Phone: Start: 02-16-2024 End: 02-16-2024 ambulatory BATTERY CHARGER TESTER-C Gay Enciso Work Phone: [facility] Work Phone: Start: 02-15-2024 End: 02-15-2024 Telephone encounter Lexus Heck APRN.PRINTING GRAY CLOTH TENDER Work Phone: Neurology Comment on above: Orders (PAP RX.) Start: 02-14-2024 End: 02-14-2024 Follow-up encounter Aidee Quintanilla [facility] Comment on above: SPP Inflammatory Conditions - Follow-up (Benlysta); Insurance Authorization ([place] Renew[place] Submitted) Start: 02-14-2024 End: 02-14-2024 ambulatory Lexus Heck APRN.PRINTING GRAY CLOTH TENDER Work Phone: Neurology Comment on above: JOSE RAFAEL (obstructive sleep apnea) (Primary D x); Somnolence, daytime SPP Inflammatory Con ditions - Medication Refill (Benlysta - NCA 09/2024) Start: 02-14-2024 End: 02-14-2024 Telemedicine consultation with patient Lexus Heck APRN.PRINTING GRAY CLOTH TENDER Work Phone: Neurology Start: 02-09-2024 End: 02-09-2024 Bamboo flowsheet Zita Cuellar BATTERY CHARGER TESTER Work Phone: [facility] Start: 02-09-2024 End: 02-09-2024 Bamboo flowsheet Zita Cuellar BATTERY CHARGER TESTER Work Phone: [facility] Start: 02-09-2024 End: 02-09-2024 Phys/qhp telephone evaluation 21-30 min Zita Cuellar BATTERY CHARGER TESTER Work Phone: [facility] 210 Comment on above: Lumbosacral radiculopathy at L5 (Primary Dx); Degenerative disc disease, lumbar; Cervical radiculopathy at C5 Start: 02-07-2024 End: 02-07-2024 Refill Zita Cuellar BATTERY CHARGER TESTER Work Phone: [facility] 210 Comment on above: Autoimmune disease (CMS/HCC); Fibromyalgia; Numbness Start: 01-28-2024 End: 01-31-2024 ambulatory Alhaji Head DO Work Phone: [facility] Work Phone: Comment on above: Blood work Start: 01-28-2024 End: 01-28-2024 Patient encounter procedure [facility] [place] Work Phone: Start: 01-27-2024 End: 01-27-2024 Telemedicine [...] 01-20-2024 Refill Kade Richardson MD Work Phone: [facility] 210 Comment on above: Degenerative disc disease, lumbar (Prima ry Dx); Lumbosacral radiculopathy at L5 Start: 01-18-2024 End: 01-19-2024 Specialty Pharmacy Aidee Quintanilla [facility] Comment on above: SPP Inflammatory [...] apnea syndrome Start: 12-24-2023 End: 12-24-2023 [facility] Start: 12-16-2023 End: 12-16-2023 [facility] Work Phone: Start: 12-16-2023 End: 12-16-2023 Patient encounter procedure [facility] Work Phone: Start: 12-13-2023 Specialty Pharmacy Aidee Quintanilla [facility] Comment on above: SPP Inflammatory [...] acid Start: 11-15-2023 Specialty Pharmacy Aidee Quintanilla [facility] Comment on above: SPP Inflammatory Conditions - Medication Refill (Benlysta - NCA 09/2024) Start: 11-11-2023 Refill Lynne Ni MD Work Phone: Rheumatology Comment on above: Refill Request Start: 11-04-2023 End: 11-04-2023 [facility] Work Phone: Start: 11-04-2023 End: 11-04-2023 Patient encounter procedure On [facility] Work Phone: Start: [...] above: Cdiff Start: 10-20-2023 End: 10-20-2023 ambulatory [facility] Work Phone: Start: 10-20-2023 End: 10-20-2023 Patient encounter procedure [facility] Work Phone: Start: 10-12-2023 Specialty Pharmacy Aidee Quintanilla [facility] Comment on above: SPP Inflammatory [...] of Plaquenil; Long-term use of high-risk medication; penitentiary 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; Raynaud's disease [...] Start: 09-22-2023 End: 09-22-2023 Patient encounter procedure [facility] Work Phone: Start: 09-13-2023 Specialty Pharmacy Aidee Quintanilla [facility] Comment on above: SPP Inflammatory [...] rate Start: 08-12-2023 Specialty Pharmacy Aidee Quintanilla [facility] Comment on above: SPP Inflammatory Conditions - Medication Refill (Benlysta ) Start: 08-05-2023 End: 08-05-2023 Nursing evaluation of patient and report Cele Marshall Work Phone: Hematology/Oncology Comment on above: 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); Elevated sed rate Start: 07-28-2023 Non-patient / Non-visit [facility] Gastroenterology Work Phone: Start: 07-13-2023 ambulatory Aidee Quintanilla [facility] Start: 07-13-2023 End: 07-13-2023 Nursing evaluation of patient and report Cele Marshall Work Phone: Hematology/Oncology Comment on above: 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); Elevated sed rate SPP Inflammatory Con ditions - Medication Refill (Benlysta ) Start: 07-13-2023 End: 07-13-2023 Office outpatient new 45 minutes Lois Holm MD Work Phone: [facility] Comment on above: Shortness of breath (Primary Dx); Paroxysmal supraventricular tachycardia; PAC (premature atrial contraction); Current smoker; Systemic lupus erythematosus, unspecified SLE type, unspecified organ involvement status (CMS/HCC); Palpitations; Obstructive sleep apnea syndrome; Morbid obesity (CMS/HCC); Bilateral lower extremity edema Start: 07-06-2023 End: 07-06-2023 Office outpatient visit 25 minutes Kade Richardson MD Work Phone: [facility] 210 Comment on above: Autoimmune disease (CMS/HCC) (Primary Dx ); Autonomic dysfunction; Lumbosacral radiculopathy; Bilateral leg weakness Start: 07-05-2023 Chart abstracting Kade Richardson MD Work Phone: [facility] 210 Start: 06-09-2023 End: 06-09-2023 Office outpatient new 60 minutes [facility] Work Phone: [facility] Comment on above: Irregular heart rate [...] evaluation of patient and report Nurse Morgan [facility] Nickie Work Phone: Rheumatology Comment on [...] 02-04-2023 Patient encounter procedure Clinton Schroeder (Pharmacist) [facility] Pharm[facility] Comment on above: SPP [...] 01-22-2023 Nursing evaluation of patient and report Ut Nurse Dre Marshall Work Phone: Hematology/Oncology Comment [...] with patient Misty Nelson MD Work Phone: [facility] Start: 12-24-2022 Refill Christie Phan MD Work Phone: [facility] Medicine Comment on above: Refill Request Start: 12-18-2022 Telephone encounter Lidia Argueta RN Work Phone: Hematology/Oncology Comment on above: Care Coordination (appointment) Start: 12-17-2022 End: 12-18-2022 ambulatory Rebekah Bob THORPE.PRINTING GRAY CLOTH TENDER Work Phone: Hematology/Oncology Comment on above: 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); Chronic fatigue and malaise Start: 12-17-2022 End: 12-18-2022 Telemedicine consultation with patient Rebekah Rojas MAURILIO.PRINTING GRAY CLOTH TENDER Work Phone: [place] Start: 12-16-2022 Telephone encounter [...] Facility:[facility] Start: 09-08-2022 Telephone encounter Angelia [employer] [...] Start: 08-27-2022 End: 08-27-2022 ambulatory Rebekah Rojas APRN.PRINTING GRAY CLOTH TENDER Work Phone: Hematology/Oncology Comment on above: 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); Elevated sed rate; High total serum IgM; Chronic fatigue and malaise; JOSE RAFAEL (obstructive sleep apnea) Start: 08-27-2022 End: 08-27-2022 Patient encounter procedure Rebekah Rojas APRN.PRINTING GRAY CLOTH TENDER Work Phone: [place] Start: 08-19-2022 Telephone encounter Lynne Ni MD Work Phone: Rheumatology Comment on above: Results Start: 08-15-2022 ambulatory Lynne Ni MD Work Phone: Rheumatology Comment on above: update Start: 08-10-2022 Refill Christie Phan MD Work Phone: [facility] Comment on above: Refill Request Start: 07-27-2022 End: 07-27-2022 ambulatory Lexus Heck APRN.PRINTING GRAY CLOTH TENDER Work Phone: Neurology Comment on above: JOSE RAFAEL (obstructive sleep apnea) (Primary D x) Start: 07-27-2022 End: 07-27-2022 Telemedicine consultation with patient Lexus Heck APRN.PRINTING GRAY CLOTH TENDER Work Phone: [facility] Start: 07-24-2022 ambulatory Lynne Ni MD Work Phone: Rheumatology Comment on above: Blood work Start: 07-24-2022 Telephone encounter Vera Najera MD Work Phone: Hematology/Oncology Comment on above: Orders (Lab Orders Before Appoint ment) Start: 07-21-2022 ambulatory Lawanda Miranda MD Work Phone: [facility] Start: 07-21-2022 Patient encounter [...] Coordinator [facility] Comment on above: Appointment; Show Host - Other Start: 03-31-2022 End: 04-01-[address] MANUEL FERRIS . Facility:[facility] Start: 03-31-2022 Refill Christie Phan MD Work Phone: [facility] Comment on above: [...] from caregiver Christie Phan MD Work Phone: [facility] Start: 03-18-2022 End: 03-18-2022 Patient encounter procedure Vera Najera MD Work Phone: [place] Start: 03-12-2022 End: 03-13-[address] MANUEL FERRIS . Facility:[facility] Start: 03-10-2022 End: 03-10-2022 ambulatory Alhaji Head DO Work Phone: Infectious Disease Comment on above: results Raised level of immu noglobulins (Primary Dx); Wound healing, delayed; Current smoker Start: 03-10-2022 E-mail encounter from caregiver Alhaji Head DO Work Phone: [facility] Start: 03-10-2022 End: 03-10-2022 Telemedicine consultation with patient Misty Nelson MD Work Phone: [place] Start: 03-09-2022 End: 03-10-2022 ambulatory GAYJIMMY ENCISO Facility: Start: 03-09-2022 End: 03-09-2022 Office [...] above: Results Start: 03-04-2022 End: 03-04-2022 ambulatory Vear Najera MD Work Phone: Hematology/Oncology Comment on [...] with patient Alhaji Head DO Work Phone: [facility] Start: 02-14-2022 End: 02-15-[address] MANUEL FERRIS . Facility:[facility] Start: 11-26-2021 End: 11-26-2021 ambulatory Mirela Kelsey Other [employer] Other Start: 11-26-2021 Office outpatient visit 25 minutes Mirela Kelsey [facility] Infectious Disease Start: 11-17-2021 End: 11-18-2021 [...] disease; Fibromyalgia Start: 10-15-2021 End: 10-15-2021 ambulatory Mirlea Kelsey Other [employer] Other Start: 10-15-2021 Office outpatient visit 25 minutes Mirela Kelsey [facility] Start: 10-03-2021 End: [address] MIRELA KELSEY Facility:[facility] Start: 09-18-2021 End: 09-18-2021 ambulatory Mirela Kelsey Other [employer] Other Start: 09-18-2021 Telephone encounter Mirela LOPEZ Infectious Disease Start: 09-11-2021 End: 09-11-2021 ambulatory Mirela Kelsey Other [facility] [employer] Other Start: 09-11-2021 Office outpatient new 45 minutes Mirela Kelsey [facility] Infectious Disease Start: 10-07-2020 End: 10-08-2020 ambulatory JONAS HOLLEY [facility] Start: 10-07-2020 End: 10-07-2020 Subsequent hospital visit by physician [facility] [employer]s Inspector Jameson Melendez [facility] [employer] Comment on above: Arrived Start: 09-14-2018 End: 09-17-2018 Patient encounter procedure [facility] Procedures Date Procedure Procedure Detail Performing Clinician Start: 01-31-2025 DH Nerve Radio Frequ ency (Bilateral) Gay Enciso BATTERY CHARGER TESTER-C Work Phone: Start: 01-11-2025 Blood count complete automated Lynne Ni MD Work Phone: Start: 10-02-2024 Blood count complete automated Lynne Ni MD Work Phone: Start: 10-02-2024 C-reactive protein Christie Ni MD Work Phone: Start: 09-06-2024 Assay of gammaglobul in iga igd igg igm each Vaibhav Carvalho MANAGER OF HEALTH.PRINTING GRAY CLOTH TENDER Work Phone: Start: 08-24-2024 Us soft tissue head & neck real time imge docm Gordo Barfield MD Work Phone: Start: 07-19-2024 Injection of local anesthetic into sacroiliac joint Gay Enciso BATTERY CHARGER TESTER-C Work Phone: Start: 06-13-2024 Blood count complete auto&auto difrntl wbc Vaibhav Carvalho MANAGER OF HEALTH.PRINTING GRAY CLOTH TENDER Work Phone: Start: 06-06-2024 IGP,APTIMA HPV,AGE GDLN [...] Injection of local anesthetic into sacroiliac joint BATTERY CHARGER TESTER-C Gay Enciso Work Phone: Start: 07-13-2023 Ecg routine ecg w/le ast 12 lds w/i&r Lois Holm MD Work Phone: Start: 06-09-2023 Ecg routine ecg w/le ast 12 lds w/i&r Michelle Jasmine MANAGER OF HEALTH-PRINTING GRAY CLOTH TENDER Work Phone: Start: 09-10-2022 Microscopic observat ion [...] 09-11-2027 Screening for malignant neoplasm of cervix [facility] Start: 06-06-2027 Screening for malignant neoplasm of cervix [facility] Start: 09-10-2025 Screening for malignant neoplasm of cervix Pap Smear [facility] Start: 07-26-2025 End: 07-26-2025 Patient encounter procedure 07/26/2025 11:00 AM EST Office Visit [facility] [address] [place] [address] Lois Holm MD [address] [place] [address] [facility] Start: 07-25-2025 End: 07-25-2025 Patient encounter procedure [facility] Start: 04-20-2025 End: 01-18-2026 25-hydroxyvitamin D3 [Mass/volume] in Serum or Plasma VITAMIN D 25 HYDROXY Lab Routine Vitamin D deficiency Expected: 04/20/2025 (Approximate), Expires: 01/18/2026 [facility] Comment on above: Expected: 04/20/2025 (Approximate), Expi res: 01/18/2026 Start: 04-20-2025 End: 01-18-2026 C reactive protein [Mass/volume] in Serum or Plasma C-REACTIVE PROTEIN Lab Routine Elevated C-reactive protein (CRP) Elevated sed rate Expected: 04/20/2025 (Approximate), Expires: 01/18/2026 [facility] Comment on above: Expected: 04/20/2025 (Approximate), Expi res: 01/18/2026 Start: 04-20-2025 End: 01-18-2026 CBC panel - Blood by Automated count COMPLETE BLOOD COUNT Lab Routine Anemia of chronic disease Expected: 04/20/2025 (Approximate), Expires: 01/18/2026 [facility] Comment on above: Expected: 04/20/2025 (Approximate), Expi res: 01/18/2026 Start: 04-20-2025 End: 01-18-2026 Comprehensive metabolic 2000 panel - Serum or Plasma COMPREHENSIVE METABOLIC PANEL Lab Routine Elevated LFTs Expected: 04/20/2025 (Approximate), Expires: 01/18/2026 [facility] Work Phone: Comment on above: Expected: 04/20/2025 (Approximate), Expi res: 01/18/2026 Start: 04-20-2025 End: 01-18-2026 Erythrocyte sedimentation rate SEDIMENTATION RATE, WESTERGREN Lab Routine Elevated C-reactive protein (CRP) Elevated sed rate Expected: 04/20/2025 (Approximate), Expires: 01/18/2026 [facility] Comment on above: Expected: 04/20/2025 (Approximate), Expi res: 01/18/2026 Start: 04-07-2025 Screening for malignant neoplasm of breast Mammogram [facility] Start: 04-06-2025 Adult BMI Screening Adult BMI Screening [facility] Start: 04-06-2025 Screening for malignant neoplasm of breast Mammogram [facility] Start: 04-06-2025 Tobacco Screening Tobacco Screening [facility] Start: 03-23-2025 End: 03-23-2025 Patient encounter procedure 03/23/2025 11:30 AM EDT Office Visit [facility] [address] [facility] [address] [place] [id number] Terence Blum MD [address] [facility] [address] [place] [address] [facility] Start: 03-19-2025 End: 03-19-2025 Patient encounter procedure [facility] [place] Start: 03-17-2025 Diabetes mellitus screening Diabetes Screening [facility] Start: 02-26-2025 Urine culture [facility] Start: 02-26-2025 Bacteria identified in Urine by Culture Urine Culture [facility] Start: 02-21-2025 End: 02-21-2025 ambulatory Hematology/Oncology Comment on above: 3 mo F/U-IVIG Start: 02-21-2025 End: 02-21-2025 Patient encounter procedure 02/21/2025 8:45 AM EDT Office Visit [facility] [address] [place] [address] 3 mo F/U-IVIG [facility] Comment on above: 3 mo F/U-IVIG Start: 02-14-2025 End: 02-14-2025 Patient encounter procedure 02/14/2025 3:20 PM EDT Office Visit [facility] [address] [place] [address] Bernabe English MD [address] [place] [address] Arrived [facility] Comment on above: Arrived Start: 02-08-2025 End: 02-08-2025 ambulatory 02/08/2025 2:00 PM EDT Infusion Center Hematology/Oncology [address] [place] [address] [facility] - Hematology/Oncology Comment on above: [facility] - Start: 01-31-2025 [facility] Start: 01-24-2025 End: 01-24-2025 ambulatory Hematology/Oncology Comment on above: IVIG q4 weeks IVIG(5hours) q4 week s Start: 01-22-2025 Influenza vaccination [facility] Start: 01-06-2025 End: 10-06-2025 25-hydroxyvitamin D3 [Mass/volume] in Serum or Plasma VITAMIN D 25 HYDROXY Lab Routine Vitamin D deficiency Expected: 01/06/2025 (Approximate), Expires: 10/06/2025 [facility] Comment on above: Expected: 01/06/2025 (Approximate), Expi res: 10/06/2025 Start: 01-06-2025 End: 10-06-2025 BLOOD TB SCREEN BLOOD TB SCREEN Lab Routine Screening-pulmonary TB Expected: 01/06/2025 (Approximate), Expires: 10/06/2025 [facility] Comment on above: Expected: 01/06/2025 (Approximate), Expi res: 10/06/2025 Start: 01-06-2025 End: 10-06-2025 C reactive protein [Mass/volume] in Serum or Plasma C-REACTIVE PROTEIN Lab Routine Elevated sed rate Elevated C-reactive protein (CRP) Expected: 01/06/2025 (Approximate), Expires: 10/06/2025 [facility] Comment on above: Expected: 01/06/2025 (Approximate), Expi res: 10/06/2025 Start: 01-06-2025 End: 10-06-2025 CBC panel - Blood by Automated count COMPLETE BLOOD COUNT Lab Routine Anemia of chronic disease Expected: 01/06/2025 (Approximate), Expires: 10/06/2025 [facility] Comment on above: Expected: 01/06/2025 (Approximate), Expi res: 10/06/2025 Start: 01-06-2025 End: 10-06-2025 Chronic hepatitis differentiation between hepatitis B and C virus panel - Serum or Plasma HEP REMOTE PANEL BL Lab Routine Elevated LFTs Expected: 01/06/2025 (Approximate), Expires: 10/06/2025 [facility] Comment on above: Expected: 01/06/2025 (Approximate), Expi res: 10/06/2025 Start: 01-06-2025 End: 10-06-2025 Cobalamin (Vitamin B12) [Mass/volume] in Serum or Plasma VITAMIN B12 Lab Routine Vitamin B12 deficiency Expected: 01/06/2025 (Approximate), Expires: 10/06/2025 [facility] Comment on above: Expected: 01/06/2025 (Approximate), Expi res: 10/06/2025 Start: 01-06-2025 End: 10-06-2025 Comprehensive metabolic 2000 panel - Serum or Plasma COMPREHENSIVE METABOLIC PANEL Lab Routine Elevated LFTs Expected: 01/06/2025 (Approximate), Expires: 10/06/2025 [facility] Work Phone: Comment on above: Expected: 01/06/2025 (Approximate), Expi res: 10/06/2025 Start: 01-06-2025 End: 10-06-2025 Erythrocyte sedimentation rate SEDIMENTATION RATE, WESTERGREN Lab Routine Elevated sed rate Elevated C-reactive protein (CRP) Expected: 01/06/2025 (Approximate), Expires: 10/06/2025 [facility] Comment on above: Expected: 01/06/2025 (Approximate), Expi res: 10/06/2025 Start: 12-27-2024 End: 12-27-2024 ambulatory 12/27/2024 9:00 AM T Infusion Center Hematology/Oncology [facility] [place] [address] IVIG q4 weeks Hematology/Oncology Comment on above: IVIG q4 weeks Start: 12-14-2024 End: 12-14-2024 ambulatory 12/14/2024 2:00 PM T Infusion Center Hematology/Oncology [address] [place] [address] [facility] - Hematology/Oncology Comment on above: BENLYSTA - Start: 11-29-2024 End: 11-29-2024 ambulatory Hematology/Oncology Comment on above: 3 mo F/U-IVIG(slow infusion per pt reque st/B12 +/-IV iron lab Start: 11-29-2024 End: 11-29-2024 Patient encounter procedure 11/29/2024 8:45 AM EDT Office Visit [facility] [address] [place] [address] 3 mo F/U-IVIG(slow infusion per pt request/B12 +/-IV iron lab [facility] Comment on above: 3 mo F/U-IVIG(slow infusion per pt reque st/B12 +/-IV iron lab Start: 11-20-2024 End: 02-19-2025 CBC W Auto Differential panel - Blood COMPLETE BLOOD COUNT AND DIFFERENTIAL Lab Routine Hypogammaglobulinemia (HCC) Expected: 11/20/2024, Expires: 02/19/2025 [facility] Work Phone: Comment on above: Expected: 11/20/2024, Expires: Start: 11-20-2024 End: 02-19-2025 Cobalamin (Vitamin B12) [Mass/volume] in Serum or Plasma VITAMIN B12 Lab Routine Hypogammaglobulinemia (HCC) Expected: 11/20/2024, Expires: 02/19/2025 [facility] Comment on above: Expected: 11/20/2024, Expires: Start: 11-20-2024 End: 02-19-2025 Comprehensive metabolic 2000 panel - Serum or Plasma COMPREHENSIVE METABOLIC PANEL Lab Routine Hypogammaglobulinemia (HCC) Expected: 11/20/2024, Expires: 02/19/2025 [facility] Comment on above: Expected: 11/20/2024, Expires: Start: 11-20-2024 End: 02-19-2025 Ferritin [Mass/volume] in Serum or Plasma FERRITIN Lab Routine Hypogammaglobulinemia (HCC) Expected: 11/20/2024, Expires: 02/19/2025 [facility] Comment on above: Expected: 11/20/2024, Expires: Start: 11-20-2024 End: 02-19-2025 Folate [Mass/volume] in Serum or Plasma FOLATE, SERUM Lab Routine Hypogammaglobulinemia (HCC) Expected: 11/20/2024, Expires: 02/19/2025 [facility] Comment on above: Expected: 11/20/2024, Expires: Start: 11-20-2024 End: 02-19-2025 IMMUNOGLOBULINS,IGG,IGA,IG M IMMUNOGLOBULINS,IGG,IGA,IG M Lab Routine Hypogammaglobulinemia (HCC) Expected: 11/20/2024, Expires: 02/19/2025 [facility] Comment on above: Expected: 11/20/2024, Expires: Start: 11-20-2024 Influenza vaccination Influenza Vaccine (#1) [facility] Comment on above: Postponed from 01/23/2024 (Patient Refus ed) Start: 11-20-2024 End: 02-19-2025 Iron and Iron binding capacity panel - Serum or Plasma IRON AND TIBC Lab Routine Hypogammaglobulinemia (HCC) Expected: 11/20/2024, Expires: 02/19/2025 [facility] Comment on above: Expected: 11/20/2024, Expires: Start: 11-16-2024 End: 11-16-2024 ambulatory 11/16/2024 2:00 PM T Infusion Center Hematology/Oncology [address] [place] [address] [place] [address] [facility] - Hematology/Oncology Comment on above: BENLYSTA - Start: 11-01-2024 End: 11-01-2024 ambulatory 11/01/2024 9:00 AM T Infusion Center Hematology/Oncology [address] [place] [address] [place] [address] IVIG q 4 weeks with B 12 inj and lab Hematology/Oncology Comment on above: IVIG q 4 weeks with B 12 inj and lab Start: 10-31-2024 End: 10-31-2024 ambulatory 10/31/2024 9:00 AM EDT Infusion Center Hematology/Oncology [address] [place] [address] IVIG q 4 weeks with B 12 inj and lab Hematology/Oncology Comment on above: IVIG q 4 weeks with B 12 inj and lab Start: 10-19-2024 End: 10-19-2024 ambulatory 10/19/2024 2:00 PM EDT Infusion Center Hematology/Oncology [address] [place] [address] [place] [address] BENLYSTA - IVIG AND BENLYSTA AT LEAST 1 DAY APART FOR FUTURE APPTS Hematology/Oncology Comment on above: BENLYSTA - IVIG AND BENLYSTA AT LEAST 1 DAY APART FOR FUTURE APPTS Start: 10-18-2024 End: 10-18-2024 Specialty Pharmacy 10/18/2024 10:00 AM EDT Specialty Pharmacy [facility] [id number] [place] [address] Pharmacist, [facility] [address] [place] [address] [place] [address] REFILL- Benlysta- PAx 02/11/25- - mult call attempts [facility] Comment on above: REFILL- Benlysta- PAx 02/11/25- - mult call attempts Start: 10-07-2024 End: 10-07-2024 Follow-up encounter 10/07/2024 8:00 AM EDT [facility] Rheumatology [address] [place] [address] Lynne Ni MD [address] [place] [address] follow up visit Rheumatology Comment on above: follow up visit Start: 10-06-2024 End: 07-09-2025 25-hydroxyvitamin D3 [Mass/volume] in Serum or Plasma VITAMIN D 25 HYDROXY Lab Routine Vitamin D deficiency Expected: 10/06/2024 (Approximate), Expires: 07/09/2025 [facility] Comment on above: Expected: 10/06/2024 (Approximate), Expi res: 07/09/2025 Start: 10-06-2024 End: 07-09-2025 C reactive protein [Mass/volume] in Serum or Plasma C-REACTIVE PROTEIN Lab Routine Elevated sed rate Elevated C-reactive protein (CRP) Expected: 10/06/2024 (Approximate), Expires: 07/09/2025 [facility] Comment on above: Expected: 10/06/2024 (Approximate), Expi res: 07/09/2025 Start: 10-06-2024 End: 07-09-2025 CBC panel - Blood by Automated count COMPLETE BLOOD COUNT Lab Routine Anemia of chronic disease Expected: 10/06/2024 (Approximate), Expires: 07/09/2025 [facility] Comment on above: Expected: 10/06/2024 (Approximate), Expi res: 07/09/2025 Start: 10-06-2024 End: 07-09-2025 Comprehensive metabolic 2000 panel - Serum or Plasma COMPREHENSIVE METABOLIC PANEL Lab Routine Elevated LFTs Expected: 10/06/2024 (Approximate), Expires: 07/09/2025 [facility] Work Phone: Comment on above: Expected: 10/06/2024 (Approximate), Expi res: 07/09/2025 Start: 10-06-2024 End: 07-09-2025 Erythrocyte sedimentation rate SEDIMENTATION RATE, WESTERGREN Lab Routine Elevated sed rate Elevated C-reactive protein (CRP) Expected: 10/06/2024 (Approximate), Expires: 07/09/2025 [facility] Comment on above: Expected: 10/06/2024 (Approximate), Expi res: 07/09/2025 Start: 2024 End: 2024 ambulatory Hematology/Oncology Comment on above: IVIG q 4 weeks with B 12 inj and lab BENLYSTA - IVIG AND BENLYSTA AT LEAST 1 DAY APART FOR FUTURE APPTS REFILL- Benlysta- PA x 02/11/25- - LVM 09/20, 09/25, 09/27 Start: 10-02-2024 End: 10-02-2024 ambulatory 10/02/2024 9:00 AM T Infusion Center Hematology/Oncology [address] [place] [address] [place] [address] IVIG q 4 weeks with B 12 inj and lab Hematology/Oncology Comment on above: IVIG q 4 weeks with B 12 inj and lab Start: 09-28-2024 End: 09-28-2024 Specialty Pharmacy 09/28/2024 10:00 AM EDT Specialty Pharmacy [facility] [address] [place] [address] Pharmacist, [facility] [address] [place] [address] [place] [address] REFILL- Benlysta- PAx 02/11/25- urs - LVM 09/20, 09/25 [facility] Comment on above: REFILL- Benlysta- PAx 02/11/25- thurs - LVM 09/20, 09/25 Start: 09-25-2024 End: 09-25-2024 Specialty Pharmacy 09/25/2024 10:15 AM EDT Specialty Pharmacy [facility] [address] [place] [address] Pharmacist, [facility] [address] [place] [address] [place] [address] REFILL- Benlysta- PAx 02/11/25- urs - LVM 09/20 [facility] Comment on above: REFILL- Benlysta- PAx 02/11/25- urs - LVM 09/20 Start: 09-20-2024 End: 09-20-2024 Specialty Pharmacy 09/20/2024 10:15 AM EDT Specialty Pharmacy [facility] [address] [place] [address] Pharmacist, [facility] [address] [place] [address] [place] [address] REFILL- Benlysta- PAx 02/11/25- - pend new [...] 9:30 AM EDT Infusion Center Hematology/Oncology [address] [place] [address] 3 mo F/U-IVIG(slow infusion per pt request/B12 +/-IV iron Hematology/Oncology Comment on above: 3 mo F/U-IVIG(slow infusion per pt reque st/B12 +/-IV iron Start: 09-06-2024 End: 09-06-2024 Follow-up encounter Hematology/Oncology Comment on above: 3 month follow up IVIG for hypogammaglob ulinemia + b12 Start: 09-06-2024 End: 09-06-2024 Patient encounter procedure 09/06/2024 8:45 AM EDT Office Visit [facility] [address] [place] [address] [place] [address] 3 month follow up IVIG for hypogammaglobulinemia + b12 [facility] Comment on above: 3 month follow up IVIG for hypogammaglob ulinemia + b12 Start: 09-05-2024 End: 09-05-2024 Follow-up encounter Hematology/Oncology Comment on above: 3 month follow up IVIG for hypogammaglob ulinemia + b12 Start: 09-05-2024 End: 09-05-2024 Patient encounter procedure 09/05/2024 8:45 AM EDT Office Visit [facility] [address] [place] [address] [place] [address] 3 month follow up IVIG for hypogammaglobulinemia + b12 [facility] Comment on above: 3 month follow up IVIG for hypogammaglob ulinemia + b12 Start: 09-04-2024 End: 09-04-2024 Patient encounter procedure 09/04/2024 3:20 PM EDT Office Visit [facility] [address] [place] [id number] Gordo Barfield MD [address] [address] [place] [address] Arrived [facility] Comment on above: Arrived Start: 08-28-2024 End: 11-27-2024 CBC W Auto Differential panel - Blood COMPLETE BLOOD COUNT AND DIFFERENTIAL Lab Routine Vitamin B12 deficiency Other iron deficiency anemia Hypogammaglobulinemia (HCC) Expected: 08/28/2024, Expires: 11/27/2024 [facility] Work Phone: Comment on above: Expected: 08/28/2024, Expires: Start: 08-28-2024 End: 11-27-2024 Cobalamin (Vitamin B12) [Mass/volume] in Serum or Plasma VITAMIN B12 Lab Routine Vitamin B12 deficiency Other iron deficiency anemia Hypogammaglobulinemia (HCC) Expected: 08/28/2024, Expires: 11/27/2024 [facility] Comment on above: Expected: 08/28/2024, Expires: Start: 08-28-2024 End: 11-27-2024 Comprehensive metabolic 2000 panel - Serum or Plasma COMPREHENSIVE METABOLIC PANEL Lab Routine Vitamin B12 deficiency Other iron deficiency anemia Hypogammaglobulinemia (HCC) Expected: 08/28/2024, Expires: 11/27/2024 [facility] Comment on above: Expected: 08/28/2024, Expires: Start: 08-28-2024 End: 11-27-2024 Ferritin [Mass/volume] in Serum or Plasma FERRITIN Lab Routine Vitamin B12 deficiency Other iron deficiency anemia Hypogammaglobulinemia (HCC) Expected: 08/28/2024, Expires: 11/27/2024 [facility] Comment on above: Expected: 08/28/2024, Expires: Start: 08-28-2024 End: 11-27-2024 Folate [Mass/volume] in Serum or Plasma FOLATE, SERUM Lab Routine Vitamin B12 deficiency Other iron deficiency anemia Hypogammaglobulinemia (HCC) Expected: 08/28/2024, Expires: 11/27/2024 [facility] Comment on above: Expected: 08/28/2024, Expires: Start: 08-28-2024 End: 11-27-2024 IgG [Mass/volume] in Serum or Plasma IMMUNOGLOBULIN G Lab Routine Vitamin B12 deficiency Other iron deficiency anemia Hypogammaglobulinemia (HCC) Expected: 08/28/2024, Expires: 11/27/2024 [facility] Comment on above: Expected: 08/28/2024, Expires: Start: 08-28-2024 End: 11-27-2024 Iron and Iron binding capacity panel - Serum or Plasma IRON AND TIBC Lab Routine Vitamin B12 deficiency Other iron deficiency anemia Hypogammaglobulinemia (HCC) Expected: 08/28/2024, Expires: 11/27/2024 [facility] Comment on above: Expected: 08/28/2024, Expires: Start: 08-22-2024 End: 08-22-2024 Patient encounter procedure 08/22/2024 1:30 PM EDT Office Visit [facility] [address] [place] [address] Raj Kitchen MD [address] [place] [address] [facility] Start: 08-22-2024 End: 08-22-2024 Specialty Pharmacy 08/22/2024 10:15 AM EDT Specialty Pharmacy [facility] [address] [address] Pharmacist, [facility] [address] [place] [address] REFILL- Benlysta- PAx 02/11/25 lv08/17 [facility] Comment on above: REFILL- Benlysta- PAx 02/11/2508/17 Start: 08-17-2024 End: 08-17-2024 Specialty Pharmacy 08/17/2024 10:00 AM EDT Specialty Pharmacy [facility] [employer] [address] [address] Pharmacist, [facility] [address] [place] [address] [place] [address] REFILL- Benlysta- PAx 02/11/25 [facility] Comment on above: REFILL- Benlysta- PAx 02/11/25 Start: 08-15-2024 End: 08-15-2024 Patient encounter procedure 08/15/2024 10:20 AM EDT Office Visit [facility] [address] [facility] [address] [place] [address] Gordo Barfield MD [address] [facility] [address] [place] [address] [facility] Start: 08-08-2024 End: 08-08-2024 ambulatory 08/08/2024 9:30 AM EDT Infusion Center Hematology/Oncology [address] [place] [address] [place] [address] IVIG for hypogammaglobulinemia + b12 Hematology/Oncology Comment on above: IVIG for hypogammaglobulinemia + b12 Start: 08-01-2024 End: 08-01-2024 Patient encounter procedure 08/01/2024 10:30 AM EDT Office Visit [facility] [address] [place] [address] Bernabe English MD [address] [place] [address] [facility] Start: 07-25-2024 End: 07-25-2024 Specialty Pharmacy [facility] Comment on above: REFILL- Benlysta- PAx 02/11/25 Arrived Start: 07-20-2024 End: 07-20-2024 ambulatory 07/20/2024 11:30 AM [facility] Infectious Disease [address] [place] [address] Alhaji Head DO [address] [place] [address] Positive blood cultures [R78.81] Infectious Disease Comment on above: Positive blood cultures [R78.81] Start: 07-20-2024 End: 07-20-2024 Patient encounter procedure 07/20/2024 11:30 AM EST Office Visit Infectious Disease [address] [place] [id number] Alhaji Head DO [address] [place], [place] [id number] Positive blood cultures [R78.81] Infectious Disease Comment on above: Positive blood cultures [R78.81] Start: 07-19-2024 [facility] Start: 07-13-2024 End: 07-13-2024 Patient encounter procedure 07/13/2024 9:20 AM EST Office Visit [address] [place] [address] Lois Holm MD [address] [facility] [address] [place] [address] [facility] Start: 07-12-2024 End: 07-12-2024 Patient encounter procedure 07/12/2024 2:40 PM EST Office Visit Otolaryngology [address] [place] [address] Marky Barnes PA-C [address] [place], [place] [id number] Recurrent Thrush. Otolaryngology Comment on above: Recurrent Thrush. Start: 07-11-2024 End: 07-11-2024 ambulatory 07/11/2024 9:30 AM EST Infusion Center Hematology/Oncology [address] [place] [address] IVIG for hypogammaglobulinemia + b12 Hematology/Oncology Comment on above: IVIG for hypogammaglobulinemia + b12 Start: 07-03-2024 End: 04-02-2025 25-hydroxyvitamin D3 [Mass/volume] in Serum or Plasma VITAMIN D 25 HYDROXY Lab Routine Vitamin D deficiency Expected: 07/03/2024 (Approximate), Expires: 04/02/2025 [facility] Comment on above: Expected: 07/03/2024 (Approximate), Expi res: 04/02/2025 Start: 07-03-2024 End: 04-02-2025 C reactive protein [Mass/volume] in Serum or Plasma C-REACTIVE PROTEIN Lab Routine Elevated sed rate Elevated C-reactive protein (CRP) Expected: 07/03/2024 (Approximate), Expires: 04/02/2025 [facility] Comment on above: Expected: 07/03/2024 (Approximate), Expi res: 04/02/2025 Start: 07-03-2024 End: 04-02-2025 CBC panel - Blood by Automated count COMPLETE BLOOD COUNT Lab Routine Anemia of chronic disease Expected: 07/03/2024 (Approximate), Expires: 04/02/2025 [facility] Comment on above: Expected: 07/03/2024 (Approximate), Expi res: 04/02/2025 Start: 07-03-2024 End: 04-02-2025 Comprehensive metabolic 2000 panel - Serum or Plasma COMPREHENSIVE METABOLIC PANEL Lab Routine Elevated LFTs Expected: 07/03/2024 (Approximate), Expires: 04/02/2025 [facility] Work Phone: Comment on above: Expected: 07/03/2024 (Approximate), Expi res: 04/02/2025 Start: 07-03-2024 End: 04-02-2025 Erythrocyte sedimentation rate SEDIMENTATION RATE, WESTERGREN Lab Routine Elevated sed rate Elevated C-reactive protein (CRP) Expected: 07/03/2024 (Approximate), Expires: 04/02/2025 [facility] Comment on above: Expected: 07/03/2024 (Approximate), Expi res: 04/02/2025 Start: 06-29-2024 End: 06-29-2024 Specialty Pharmacy 06/29/2024 10:00 AM EST Specialty Pharmacy [facility] [facility] [id number] [place] [address] Pharmacist, [facility] [address] [place] [address] [place] [address] REFILL- Benlysta- PAx 9 [facility] Comment on above: REFILL- Benlysta- PAx 02/11/25 Start: 06-26-2024 End: 06-26-2024 Nursing evaluation of patient and report 06/26/2024 9:45 AM EST Nurse Visit Hematology/Oncology [address] [place] [address] Joanna Ut Nurse Dre [address] [place] [address] B12 Hematology/Oncology Comment on above: B12 Start: 06-26-2024 End: 06-26-2024 ambulatory Hematology/Oncology Comment on above: RTC 3 month IVIG for hypogammagl obulinemia Start: 06-26-2024 End: 06-26-2024 Patient encounter procedure 06/26/2024 8:45 AM EST Office Visit [facility] [address] [place] [address] labs [facility] Comment on above: labs Start: 06-14-2024 End: 06-14-2024 Nursing evaluation of patient and report [facility] Comment on above: Abdominal Pain/Diarrhea/Bandar S [employer] order ed/Patient has prep thru MyChart//cc SIBO - Abdominal Gus n/Diarrhea/Bandar S [employer] ordered/Patient has prep thru MyChart//cc Order in Scanned Documents Start: 06-13-2024 End: 09-12-2024 Cobalamin (Vitamin B12) [Mass/volume] in Serum or Plasma [facility] Comment on above: Expected: 06/13/2024, Expires: Start: 06-13-2024 End: 09-12-2024 Ferritin [Mass/volume] in Serum or Plasma [facility] Work Phone: Comment on above: Expected: 06/13/2024, Expires: Start: 06-13-2024 End: 09-12-2024 Folate [Mass/volume] in Serum or Plasma [facility] Comment on above: Expected: 06/13/2024, Expires: Start: 06-13-2024 End: 09-12-2024 Iron and Iron binding capacity panel - Serum or Plasma [facility] Comment on above: Expected: 06/13/2024, Expires: Start: 06-13-2024 End: 06-13-2024 Nursing evaluation of patient and report 06/13/2024 9:45 AM EST Nurse Visit Hematology/Oncology [address] [place] [address] [place] [address] Cele Marshall Nurse Dre [address] [place] [address] B12 Hematology/Oncology Comment on above: B12 Start: 06-13-2024 End: 06-13-2024 ambulatory Hematology/Oncology Comment on above: RTC 3 month IVIG for hypogammagl obulinemia Start: 06-13-2024 End: 06-13-2024 Patient encounter procedure 06/13/2024 8:45 AM EST Office Visit [facility] [address] [place] [address] [place] [address] labs [facility] Comment on above: labs Start: 06-06-2024 End: 08-04-2025 MG Breast - bilateral Screening Bilateral screening mammogram Imaging Routine Breast cancer screening by mammogram Expected: 06/06/2024 (Approximate), Expires: 08/04/2025 [facility] Work Phone: Comment on above: Expected: 06/06/2024 (Approximate), Expi res: 08/04/2025 Start: 06-06-2024 End: 08-04-2025 MG Breast - left Diagnostic Left diagnostic mammogram Imaging Routine Breast nodule Expected: 06/06/2024 (Approximate), Expires: 08/04/2025 [facility] Comment on above: Expected: 06/06/2024 (Approximate), Expi res: 08/04/2025 Start: 06-06-2024 End: 06-06-2024 Patient encounter procedure [facility] Comment on above: REFILL- Benlysta- PAx 02/11/25 Start: 05-29-2024 End: 05-29-2024 Nursing evaluation of patient and report 05/29/2024 9:30 AM EST Nurse Visit Hematology/Oncology [address] [place] [address] [place] [address] Cele Marshall Nurse Dre [address] [place] [address] B12 Hematology/Oncology Comment on above: B12 Start: 05-19-2024 End: 05-19-2024 ambulatory 05/19/2024 9:30 AM EST Infusion Center Hematology/Oncology [address] [place] [address] IVIG for hypogammaglobulinemia Hematology/Oncology Comment on above: IVIG for hypogammaglobulinemia Start: 05-12-2024 End: 05-12-2024 Specialty Pharmacy 05/12/2024 10:00 AM EST Specialty Pharmacy [facility] [place] [address] Pharmacist, [facility] [address] [place] [address] [place] [address] REFILL- Benlysta- PAx 02/11/25 [facility] Comment on above: REFILL- Benlysta- PAx 02/11/25 Start: 04-28-2024 End: 04-28-2025 US.doppler Extremity arteries - bilateral for physiologic artery study Vas art doppler lwr bilat mult lev/PVR Vascular Ultrasound Routine Peripheral vascular disease, unspecified ([facility]) Cold extremities Systemic lupus erythematosus ([facility]) Expected: 04/28/2024, Expires: 04/28/2025 [facility] Work Phone: Comment on above: Expected: 04/28/2024, Expires: Start: 04-24-2024 End: 04-24-2024 Nursing evaluation of patient and report 04/24/2024 9:30 AM EST Nurse Visit Hematology/Oncology [address] [place] [address] Cele Marshall Nurse Dre [address] [place] [address] B12 Hematology/Oncology Comment on above: B12 Start: 04-18-2024 End: 04-18-2024 Nursing evaluation of patient and report [facility] Comment on above: [...] lower extremity, unspecified laterality Systemic lupus erythematosus ([facility]) Expected: 04/06/2024, Expires: 2025 [facility] Work Phone: Comment on above: Expected: 04/06/2024, Expires: Start: 03-28-2024 End: 03-28-2024 ambulatory 03/28/2024 1:00 PM [facility] Hematology/Oncology [address] [place] [address] [place] [address] Vera Najera MD [address] [place] [address] 13 wk virtual after labs last week Hematology/Oncology Comment on above: 13 wk virtual after labs last week Start: 03-23-2024 End: 03-23-2025 aPTT in Blood by Coagulation assay APTT Lab Routine Menorrhagia with regular cycle Expected: 03/23/2024 (Approximate), Expires: 03/23/2025 [facility] Comment on above: Expected: 03/23/2024 (Approximate), Expi res: 03/23/2025 Start: 03-23-2024 End: 03-23-2025 US for US PELVIS-TRANSVAG IF INDICATED Imaging Routine Menorrhagia with regular cycle Expected: 03/23/2024 (Approximate), Expires: 03/23/2025 [facility] Comment on above: Expected: 03/23/2024 (Approximate), Expi res: 03/23/2025 Start: 03-21-2024 End: 03-21-2024 Nursing evaluation of patient and report 03/21/2024 11:45 AM EDT Nurse Visit Hematology/Oncology [address] [place] [address] Cele Marshall Nurse Dre [address] [place] [address] b12 Hematology/Oncology Comment on above: b12 Start: 03-21-2024 End: 03-21-2024 Patient encounter procedure 03/21/2024 11:15 AM EDT Office Visit [facility] [address] [place] [address] [place] [address] LAb [facility] Comment on above: LAb Start: 03-20-2024 End: 12-29-2024 25-hydroxyvitamin D3 [Mass/volume] in Serum or Plasma VITAMIN D 25 HYDROXY Lab Routine Vitamin D deficiency Expected: 03/20/2024 (Approximate), Expires: 12/29/2024 [facility] Comment on above: Expected: 03/20/2024 (Approximate), Expi res: 12/29/2024 Start: 03-20-2024 End: 12-29-2024 BLOOD TB SCREEN BLOOD TB SCREEN Lab Routine Screening-pulmonary TB Expected: 03/20/2024 (Approximate), Expires: 12/29/2024 [facility] Comment on above: Expected: 03/20/2024 (Approximate), Expi res: 12/29/2024 Start: 03-20-2024 End: 12-29-2024 C reactive protein [Mass/volume] in Serum or Plasma C-REACTIVE PROTEIN Lab Routine Elevated C-reactive protein (CRP) Elevated sed rate Expected: 03/20/2024 (Approximate), Expires: 12/29/2024 [facility] Comment on above: Expected: 03/20/2024 (Approximate), Expi res: 12/29/2024 Start: 03-20-2024 End: 06-19-2024 CBC W Auto Differential panel - Blood COMPLETE BLOOD COUNT AND DIFFERENTIAL Lab Routine Megaloblastic anemia due to vitamin B12 deficiency Elevated sed rate Obstructive sleep apnea syndrome Expected: 03/20/2024 (Approximate), Expires: 06/19/2024 [facility] Comment on above: Expected: 03/20/2024 (Approximate), Expi res: 06/19/2024 Start: 03-20-2024 End: 06-19-2024 Cobalamin (Vitamin B12) [Mass/volume] in Serum or Plasma VITAMIN B12 Lab Routine Megaloblastic anemia due to vitamin B12 deficiency Elevated sed rate Obstructive sleep apnea syndrome Expected: 03/20/2024 (Approximate), Expires: 06/19/2024 [facility] Comment on above: Expected: 03/20/2024 (Approximate), Expi res: 06/19/2024 Start: 03-20-2024 End: 06-19-2024 Comprehensive metabolic 2000 panel - Serum or Plasma COMPREHENSIVE METABOLIC PANEL Lab Routine Megaloblastic anemia due to vitamin B12 deficiency Elevated sed rate Obstructive sleep apnea syndrome Expected: 03/20/2024 (Approximate), Expires: 06/19/2024 [facility] Work Phone: Comment on above: Expected: 03/20/2024 (Approximate), Expi res: 06/19/2024 Start: 03-20-2024 End: 12-29-2024 Erythrocyte sedimentation rate SEDIMENTATION RATE, WESTERGREN Lab Routine Elevated C-reactive protein (CRP) Elevated sed rate Expected: 03/20/2024 (Approximate), Expires: 12/29/2024 [facility] Work Phone: Comment on above: Expected: 03/20/2024 (Approximate), Expi res: 12/29/2024 Start: 03-20-2024 End: 06-19-2024 Ferritin [Mass/volume] in Serum or Plasma FERRITIN Lab Routine Megaloblastic anemia due to vitamin B12 deficiency Elevated sed rate Obstructive sleep apnea syndrome Expected: 03/20/2024 (Approximate), Expires: 06/19/2024 [facility] Comment on above: Expected: 03/20/2024 (Approximate), Expi res: 06/19/2024 Start: 03-20-2024 End: 06-19-2024 Folate [Mass/volume] in Serum or Plasma FOLATE, SERUM Lab Routine Megaloblastic anemia due to vitamin B12 deficiency Elevated sed rate Obstructive sleep apnea syndrome Expected: 03/20/2024 (Approximate), Expires: 06/19/2024 [facility] Comment on above: Expected: 03/20/2024 (Approximate), Expi res: 06/19/2024 Start: 03-20-2024 End: 06-19-2024 IMMUNOGLOBULINS,IGG,IGA,IG M IMMUNOGLOBULINS,IGG,IGA,IG M Lab Routine Megaloblastic anemia due to vitamin B12 deficiency Elevated sed rate Obstructive sleep apnea syndrome Expected: 03/20/2024 (Approximate), Expires: 06/19/2024 [facility] Comment on above: Expected: 03/20/2024 (Approximate), Expi res: 06/19/2024 Start: 03-20-2024 End: 06-19-2024 Iron and Iron binding capacity panel - Serum or Plasma IRON AND TIBC Lab Routine Megaloblastic anemia due to vitamin B12 deficiency Elevated sed rate Obstructive sleep apnea syndrome Expected: 03/20/2024 (Approximate), Expires: 06/19/2024 [facility] Comment on above: Expected: 03/20/2024 (Approximate), Expi res: 06/19/2024 Start: 03-18-2024 End: 03-18-2024 Patient encounter procedure 03/18/2024 9:00 AM EDT [facility] Rheumatology [address] [place] [address] [place]ne [place] [address] [place] [address] May offer 03/18/24 Sat [facility]J 4th floor in person/virtual/phone for lupus Rheumatology Comment on above: May offer 03/18/24 Sat REJ 4th floor in person/virtual/phone for lupus Start: 03-16-2024 Patient referral [facility] Work Phone: Start: 03-16-2024 End: 05-16-2025 US Breast - bilateral Bilateral breast US complete Imaging Routine Nipple discharge Expected: 03/16/2024, Expires: 05/16/2025 [facility] Work Phone: Comment on above: [...] Hematology/Oncology [address] [place] [address] Cele Marshall Nurse Dre [address] [place] [address] b12 Hematology/Oncology Comment on above: b12 Start: 02-22-2024 End: 02-22-2024 Patient encounter procedure 02/22/2024 11:15 AM EDT Office Visit [facility] [address] [place] [address] LAb [facility] Comment on above: LAb Start: 02-21-2024 End: 02-21-2024 Nursing evaluation of patient and report 02/21/2024 10:45 AM EDT Nurse Visit Hematology/Oncology [address] [place] [address] Cele Marshall Nurse Dre [address] [place] [address] b12 Hematology/Oncology Comment on above: b12 Start: 02-21-2024 End: 02-21-2024 Patient encounter procedure 02/21/2024 10:30 AM EDT Office Visit [facility] [address] [place] [address] LAb [facility] Comment on above: LAb Start: 02-16-2024 [facility] Start: 02-14-2024 End: 02-14-2024 Follow-up encounter Neurology Comment on above: Cpap follow up REFILL- Benlysta- PA x 02/04/24- NCA 09/2024-, [place] 02/23 Start: 02-09-2024 End: 02-09-2024 Patient encounter procedure 02/09/2024 8:00 AM EDT Office Visit [facility] [address] [address] [place] [id number] Zita Cuellar [employer] [address] [facility] [address], [place] [address] [facility] [address] Start: 01-27-2024 End: 04-27-2024 Bacteria identified in Blood by Culture BLOOD CULTURE Microbiology Routine Pseudomonas infection Expected: 01/27/2024, Expires: 04/27/2024 [facility] Work Phone: Comment on above: Expected: 01/27/2024, Expires: Start: 01-27-2024 End: 01-27-2024 Follow-up encounter 01/27/2024 10:00 AM EDT [facility] Infectious Disease [address] [facility] [place] [address] [place] [address] [place] [address] follow up Infectious Disease Comment on above: follow up Start: 01-25-2024 End: 01-25-2024 Nursing evaluation of patient and report Hematology/Oncology Comment on above: b12 B12(change date) Start: 01-25-2024 End: 01-25-2024 Patient encounter procedure [facility] Comment on above: LAb NO LAB ORDERS LAb Start: 01-24-2024 Influenza vaccination Influenza Vaccine (#1) [facility] Comment on above: Postponed from 01/22/2023 (Patient Refus ed) Start: 01-23-2024 Covid-19 Vaccine ( season) Covid-19 Vaccine ( season) [facility] Start: 01-23-2024 Covid-19 Vaccine ( season) Covid-19 Vaccine ( season) [facility] Start: 01-23-2024 Influenza vaccination [facility] Start: 01-20-2024 End: 01-20-2024 Specialty Pharmacy [facility] Comment on above: refill - benlysta- NCA 09/2024-- pa exp: 02/04/24- 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 Start: 12-27-2023 End: 12-27-2023 Nursing evaluation of patient and report 12/27/2023 12:00 PM EDT Nurse Visit Hematology/Oncology [address] [place] [address] Cele Marshall Nurse Dre [address] [place] [address] b12 Hematology/Oncology Comment on above: b12 Start: 12-27-2023 End: 12-27-2023 Follow-up encounter 12/27/2023 11:30 AM EDT Visit (SP) Office Hematology/Oncology [address] [place] [address] Neda Hill, PAJuliusC [address] [place] [address] 13 week follow up, labs 1 week before Hematology/Oncology Comment on above: 13 week follow up, labs 1 week before Start: 12-27-2023 End: 12-27-2023 Patient encounter procedure 12/27/2023 11:15 AM EDT Office Visit [facility] [address] [place] [address] LAb [facility] Comment on above: LAb Start: 12-13-2023 End: 12-13-2023 Specialty Pharmacy 12/13/2023 10:00 AM EDT Specialty Pharmacy [facility] [address] [place] [address] Pharmacist, [facility] [address] [place] [address] [place] [address] refill - benlysta- NCA - pa exp: 02/04/24- [facility] Comment on above: refill - benlysta- NCA - pa exp: 02/04/24- Start: 12-10-2023 End: 12-10-2023 Follow-up encounter 12/10/2023 10:45 AM EDT Visit (SP) Office Hematology/Oncology [address] [place] [address] Vera Najera MD [address] [place] [address] 13 week follow up, labs 1 week before Hematology/Oncology Comment on above: 13 week follow up, labs 1 week before Start: 12-04-2023 End: 09-03-2024 25-hydroxyvitamin D3 [Mass/volume] in Serum or Plasma VITAMIN D 25 HYDROXY Lab Routine Vitamin D deficiency Expected: 12/04/2023 (Approximate), Expires: 09/03/2024 [facility] Work Phone: Comment on above: Expected: 12/04/2023 (Approximate), Expi res: 09/03/2024 Start: 12-04-2023 End: 09-03-2024 C reactive protein [Mass/volume] in Serum or Plasma C-REACTIVE PROTEIN Lab Routine Elevated sed rate Elevated C-reactive protein (CRP) Expected: 12/04/2023 (Approximate), Expires: 09/03/2024 [facility] Work Phone: Comment on above: Expected: 12/04/2023 (Approximate), Expi res: 09/03/2024 Start: 12-04-2023 End: 09-03-2024 CBC panel - Blood by Automated count COMPLETE BLOOD COUNT Lab Routine Anemia of chronic disease Expected: 12/04/2023 (Approximate), Expires: 09/03/2024 [facility] Work Phone: Comment on above: Expected: 12/04/2023 (Approximate), Expi res: 09/03/2024 Start: 12-04-2023 End: 09-03-2024 Comprehensive metabolic 2000 panel - Serum or Plasma COMPREHENSIVE METABOLIC PANEL Lab Routine Elevated LFTs Expected: 12/04/2023 (Approximate), Expires: 09/03/2024 [facility] Work Phone: Comment on above: Expected: 12/04/2023 (Approximate), Expi res: 09/03/2024 Start: 12-04-2023 End: 09-03-2024 Erythrocyte sedimentation rate SEDIMENTATION RATE, WESTERGREN Lab Routine Elevated sed rate Elevated C-reactive protein (CRP) Expected: 12/04/2023 (Approximate), Expires: 09/03/2024 [facility] Work Phone: Comment on above: Expected: 12/04/2023 (Approximate), Expi res: 09/03/2024 Start: 12-03-2023 End: 12-03-2023 Nursing evaluation of patient and report 12/03/2023 11:00 AM EDT Nurse Visit Hematology/Oncology [address] [place] [address] Cele Marshall Nurse Dre [address] [place] [address] b12 Hematology/Oncology Comment on above: b12 Start: 12-03-2023 End: 12-03-2023 Patient encounter procedure 12/03/2023 10:45 AM EDT Office Visit [facility] [address] [place] [address] lab [facility] Comment on above: lab Start: 12-02-2023 End: 09-08-2024 CBC W Auto Differential panel - Blood COMPLETE BLOOD COUNT AND DIFFERENTIAL Lab Routine Megaloblastic anemia due to vitamin B12 deficiency High total serum IgM Expected: 12/02/2023 (Approximate), Expires: 09/08/2024 [facility] Work Phone: Comment on above: Expected: 12/02/2023 (Approximate), Expi res: 09/08/2024 Start: 12-02-2023 End: 09-08-2024 Cobalamin (Vitamin B12) [Mass/volume] in Serum or Plasma VITAMIN B12 Lab Routine Megaloblastic anemia due to vitamin B12 deficiency High total serum IgM Expected: 12/02/2023 (Approximate), Expires: 09/08/2024 [facility] Work Phone: Comment on above: Expected: 12/02/2023 (Approximate), Expi res: 09/08/2024 Start: 12-02-2023 End: 09-08-2024 Comprehensive metabolic 2000 panel - Serum or Plasma COMPREHENSIVE METABOLIC PANEL Lab Routine Megaloblastic anemia due to vitamin B12 deficiency High total serum IgM Expected: 12/02/2023 (Approximate), Expires: 09/08/2024 [facility] Work Phone: Comment on above: Expected: 12/02/2023 (Approximate), Expi res: 09/08/2024 Start: 12-02-2023 End: 03-02-2024 Erythrocyte sedimentation rate SEDIMENTATION RATE, WESTERGREN Lab Routine Megaloblastic anemia due to vitamin B12 deficiency High total serum IgM Expected: 12/02/2023 (Approximate), Expires: 03/02/2024 [facility] Work Phone: Comment on above: Expected: 12/02/2023 (Approximate), Expi res: 03/02/2024 Start: 12-02-2023 End: 09-08-2024 Ferritin [Mass/volume] in Serum or Plasma FERRITIN Lab Routine Megaloblastic anemia due to vitamin B12 deficiency High total serum IgM Expected: 12/02/2023 (Approximate), Expires: 09/08/2024 [facility] Work Phone: Comment on above: Expected: 12/02/2023 (Approximate), Expi res: 09/08/2024 Start: 12-02-2023 End: 09-08-2024 Folate [Mass/volume] in Serum or Plasma FOLATE, SERUM Lab Routine Megaloblastic anemia due to vitamin B12 deficiency High total serum IgM Expected: 12/02/2023 (Approximate), Expires: 09/08/2024 [facility] Work Phone: Comment on above: Expected: 12/02/2023 (Approximate), Expi res: 09/08/2024 Start: 12-02-2023 End: 03-02-2024 IgA [Mass/volume] in Serum or Plasma IMMUNOGLOBULIN A Lab Routine Megaloblastic anemia due to vitamin B12 deficiency High total serum IgM Expected: 12/02/2023 (Approximate), Expires: 03/02/2024 [facility] Work Phone: Comment on above: Expected: 12/02/2023 (Approximate), Expi res: 03/02/2024 Start: 12-02-2023 End: 03-02-2024 IgE [Units/volume] in Serum or Plasma IMMUNOGLOBULIN E Lab Routine Megaloblastic anemia due to vitamin B12 deficiency High total serum IgM Expected: 12/02/2023 (Approximate), Expires: 03/02/2024 [facility] Work Phone: Comment on above: Expected: 12/02/2023 (Approximate), Expi res: 03/02/2024 Start: 12-02-2023 End: 03-02-2024 IgG [Mass/volume] in Serum or Plasma IMMUNOGLOBULIN G Lab Routine Megaloblastic anemia due to vitamin B12 deficiency High total serum IgM Expected: 12/02/2023 (Approximate), Expires: 03/02/2024 [facility] Work Phone: Comment on above: Expected: 12/02/2023 (Approximate), Expi res: 03/02/2024 Start: 12-02-2023 End: 03-02-2024 IgM [Mass/volume] in Serum or Plasma IMMUNOGLOBULIN M Lab Routine Megaloblastic anemia due to vitamin B12 deficiency High total serum IgM Expected: 12/02/2023 (Approximate), Expires: 03/02/2024 [facility] Work Phone: Comment on above: Expected: 12/02/2023 (Approximate), Expi res: 03/02/2024 Start: 12-02-2023 End: 09-08-2024 Iron and Iron binding capacity panel - Serum or Plasma IRON AND TIBC Lab Routine Megaloblastic anemia due to vitamin B12 deficiency High total serum IgM Expected: 12/02/2023 (Approximate), Expires: 09/08/2024 [facility] Work Phone: Comment on above: Expected: 12/02/2023 (Approximate), Expi res: 09/08/2024 Start: 11-29-2023 End: 11-29-2023 Nursing evaluation of patient and report 11/29/2023 2:15 PM EDT Nurse Visit Hematology/Oncology [address] [place] [address] Cele Marshall Nurse Dre [address] [place] [address] b12 Hematology/Oncology Comment on above: b12 Start: 11-15-2023 End: 11-15-2023 Specialty Pharmacy 11/15/2023 10:00 AM EDT Specialty Pharmacy [facility] [address] [place], [place] [id number] Pharmacist, [facility] [address] [place] [address] [place] [address] refill - benlysta- NCA - pa exp: 02/04/24- [facility] Comment on above: refill - benlysta- NCA - pa exp: 02/04/24- Start: 10-29-2023 End: 10-29-2023 Nursing evaluation of patient and report 10/29/2023 11:00 AM EDT Nurse Visit Hematology/Oncology [address] [place] [address] Cele Marshall Nurse Dre [address] [place] [address] b12 Hematology/Oncology Comment on above: b12 Start: 10-15-2023 End: 10-15-2023 Specialty Pharmacy 10/15/2023 10:00 AM EDT Specialty Pharmacy [facility] [address] [place] [id number] Pharmacist, [facility] [address] [place] [address] [place] [address] refill - benlysta-urs- pa exp: 02/04/24-l/m 10/11 [facility] Comment on above: refill - benlysta-Thursdays- pa exp: 01/22 08/14-l/m 10/11 Start: 10-12-2023 End: 10-12-2023 Specialty Pharmacy 10/12/2023 10:00 AM EDT Specialty Pharmacy [facility] [address] [place] [id number] Pharmacist, [facility] [address] [place] [address] [place] [address] refill - benlysta-Thursdays- pa exp: 02/04/24- [facility] Comment on above: refill - benlysta-Thursdays- pa exp: 01/22 08/14- Start: 10-05-2023 End: 10-05-2023 Patient encounter procedure 10/05/2023 8:00 AM EDT [facility] Rheumatology [address] [place] [address] Lynne Ni MD [address] [place], [place] [id number] 6 mo f/u for Lupus Rheumatology Comment on above: 6 mo f/u for Lupus Start: 10-01-2023 End: 10-01-2023 Nursing evaluation of patient and report 10/01/2023 11:00 AM EDT Nurse Visit Hematology/Oncology [address] [place] [address] Cele Marshall Nurse Dre [address] [place] [address] b12 Hematology/Oncology Comment on above: b12 Start: 09-16-2023 End: 09-16-2023 Specialty Pharmacy 09/16/2023 10:00 AM EDT Specialty Pharmacy [facility] [address] [place] [id number] Pharmacist, [facility] [address] [place] [address] [place] [address] refill - benlysta-Thursdays- pa exp: 02/04/24-lvm [facility] Comment on above: refill - benlysta-Thursdays- pa exp: 01/22 08/14-lvm Start: 09-13-2023 End: 09-13-2023 Patient encounter procedure 09/13/2023 9:00 AM EDT Office Visit [facility] [address] [place] [address] Kade Richardson MD [address] [facility] [address] [place] [address] [facility] Start: 07-19-2023 End: 07-19-2023 Patient encounter procedure [facility] Start: 07-15-2023 End: 07-15-2023 Patient encounter procedure 07/15/2023 10:50 AM EST Office Visit [facility] [address] [place] [address] Bernabe English MD [address] [place] [address] [facility] Start: 07-06-2023 End: 07-06-2023 Patient encounter procedure 07/06/2023 2:30 PM EST [facility] [address] [place] [phone] Kade Richardson MD [address] [facility] [address] [place] [address] [facility] NE[facility]O 210 Start: 07-06-2023 End: 07-06-2024 Protein electrophoresis, serum Protein electrophoresis, serum Lab Routine Autoimmune disease (CMS/HCC) Autonomic dysfunction Expected: 07/06/2023 (Approximate), Expires: 07/06/2024 [facility] Work Phone: Comment on above: Expected: 07/06/2023 (Approximate), Expi res: 07/06/2024 Start: 07-06-2023 End: 07-06-2024 Protein electrophoresis, urine Protein electrophoresis, urine Lab Routine Autoimmune disease (CMS/HCC) Autonomic dysfunction Expected: 07/06/2023 (Approximate), Expires: 07/06/2024 [facility] Comment on above: Expected: 07/06/2023 (Approximate), Expi res: 07/06/2024 Start: 06-09-2023 End: 06-09-2024 Holter monitor study Holter Or Event Follow Up Specialist Cardiac Services Routine Irregular heart rate Expected: 06/09/2023 (Approximate), Expires: 06/09/2024 [facility] Work Phone: Comment on above: Expected: 06/09/2023 (Approximate), Expi res: 06/09/2024 Start: 06-09-2023 End: 06-09-2024 Lipid 1996 panel - Serum or Plasma Lipid Panel Lab Routine Primary hypertension Expected: 06/09/2023 (Approximate), Expires: 06/09/2024 [facility] Work Phone: Comment on above: Expected: 06/09/2023 (Approximate), Expi res: 06/09/2024 Start: 06-09-2023 End: 06-09-2024 Thyrotropin [Units/volume] in Serum or Plasma Thyroid Stimulating Hormone Lab Routine Irregular heart rate Expected: 06/09/2023 (Approximate), Expires: 06/09/2024 [facility] Work Phone: Comment on above: Expected: 06/09/2023 (Approximate), Expi res: 06/09/2024 Start: 06-09-2023 End: 06-09-2024 Thyroxine (T4) free [Mass/volume] in Serum or Plasma Thyroxine, Free Lab Routine Irregular heart rate Expected: 06/09/2023 (Approximate), Expires: 06/09/2024 [facility] Work Phone: Comment on above: Expected: 06/09/2023 (Approximate), Expi res: 06/09/2024 Start: 06-09-2023 End: 06-09-2025 US Heart Transthoracic Transthoracic Echo (TTE) Complete Echocardiography Routine Irregular heart rate Obstructive sleep apnea syndrome Expected: 06/09/2023 (Approximate), Expires: 06/09/2025 [facility] [[email or web address] Service Area Work Phone: Comment on above: Expected: 06/09/2023 (Approximate), Expi res: 06/09/2025 Start: 04-25-2023 End: 01-25-2024 25-hydroxyvitamin D3 [Mass/volume] in Serum or Plasma VITAMIN D 25 HYDROXY Lab Routine Vitamin D deficiency Expected: 04/25/2023 (Approximate), Expires: 01/25/2024 [facility] Work Phone: Comment on above: Expected: 04/25/2023 (Approximate), Expi res: 01/25/2024 Start: 04-25-2023 End: 01-25-2024 C reactive protein [Mass/volume] in Serum or Plasma C-REACTIVE PROTEIN (CRP) Lab Routine Elevated sed rate Elevated C-reactive protein (CRP) Expected: 04/25/2023 (Approximate), Expires: 01/25/2024 [facility] Work Phone: Comment on above: Expected: 04/25/2023 (Approximate), Expi res: 01/25/2024 Start: 04-25-2023 End: 01-25-2024 CBC panel - Blood by Automated count CBC Lab Routine Anemia of chronic disease Expected: 04/25/2023 (Approximate), Expires: 01/25/2024 [facility] Work Phone: Comment on above: Expected: 04/25/2023 (Approximate), Expi res: 01/25/2024 Start: 04-25-2023 End: 01-25-2024 Comprehensive metabolic 2000 panel - Serum or Plasma COMP METABOLIC PANEL Lab Routine Elevated LFTs Expected: 04/25/2023 (Approximate), Expires: 01/25/2024 [facility] Work Phone: Comment on above: Expected: 04/25/2023 (Approximate), Expi res: 01/25/2024 Start: 04-25-2023 End: 01-25-2024 Erythrocyte sedimentation rate SED RATE WESTERGREN Lab Routine Elevated sed rate Elevated C-reactive protein (CRP) Expected: 04/25/2023 (Approximate), Expires: 01/25/2024 [facility] Work Phone: Comment on above: Expected: 04/25/2023 (Approximate), Expi res: 01/25/2024 Start: 04-20-2023 COVID-19 Vaccine (4 - Pfizer risk series) COVID-19 Vaccine (4 - Pfizer risk series) [facility] Start: 04-20-2023 Covid-19 Vaccine ( season) Covid-19 Vaccine ( season) [facility] Start: 04-20-2023 Covid-19 Vaccine () Covid-19 Vaccine () [facility] Start: 04-16-2023 End: 02-20-2024 CBC W Auto Differential panel - Blood CBC + DIFF Lab Routine Megaloblastic anemia due to vitamin B12 deficiency Elevated sed rate Chronic fatigue and malaise High total serum IgM JOSE RAFAEL (obstructive sleep apnea) Expected: 04/16/2023 (Approximate), Expires: 02/20/2024 [facility] Work Phone: Comment on above: Expected: 04/16/2023 (Approximate), Expi res: 02/20/2024 Start: 04-16-2023 End: 02-20-2024 Cobalamin (Vitamin B12) [Mass/volume] in Serum or Plasma VITAMIN B12 BLOOD Lab Routine Megaloblastic anemia due to vitamin B12 deficiency Elevated sed rate Chronic fatigue and malaise High total serum IgM JOSE RAFAEL (obstructive sleep apnea) Expected: 04/16/2023 (Approximate), Expires: 02/20/2024 [facility] Work Phone: Comment on above: Expected: 04/16/2023 (Approximate), Expi res: 02/20/2024 Start: 04-16-2023 End: 02-20-2024 Comprehensive metabolic 2000 panel - Serum or Plasma COMP METABOLIC PANEL Lab Routine Megaloblastic anemia due to vitamin B12 deficiency Elevated sed rate Chronic fatigue and malaise High total serum IgM JOSE RAFAEL (obstructive sleep apnea) Expected: 04/16/2023 (Approximate), Expires: 02/20/2024 [facility] Work Phone: Comment on above: Expected: 04/16/2023 (Approximate), Expi res: 02/20/2024 Start: 04-16-2023 End: 02-20-2024 Ferritin [Mass/volume] in Serum or Plasma FERRITIN BLD Lab Routine Megaloblastic anemia due to vitamin B12 deficiency Elevated sed rate Chronic fatigue and malaise High total serum IgM JOSE RAFAEL (obstructive sleep apnea) Expected: 04/16/2023 (Approximate), Expires: 02/20/2024 [facility] Work Phone: Comment on above: Expected: 04/16/2023 (Approximate), Expi res: 02/20/2024 Start: 04-16-2023 End: 02-20-2024 Folate [Mass/volume] in Serum or Plasma FOLATE SERUM Lab Routine Megaloblastic anemia due to vitamin B12 deficiency Elevated sed rate Chronic fatigue and malaise High total serum IgM JOSE RAFAEL (obstructive sleep apnea) Expected: 04/16/2023 (Approximate), Expires: 02/20/2024 [facility] Work Phone: Comment on above: Expected: 04/16/2023 (Approximate), Expi res: 02/20/2024 Start: 04-16-2023 End: 02-20-2024 Iron and Iron binding capacity panel - Serum or Plasma IRON + TIBC Lab Routine Megaloblastic anemia due to vitamin B12 deficiency Elevated sed rate Chronic fatigue and malaise High total serum IgM JOSE RAFAEL (obstructive sleep apnea) Expected: 04/16/2023 (Approximate), Expires: 02/20/2024 [facility] Work Phone: Comment on above: Expected: 04/16/2023 (Approximate), Expi res: 02/20/2024 Start: 03-23-2023 COVID-19 Vaccine (3 - Pfizer risk series) COVID-19 Vaccine (3 - Pfizer risk series) [facility] Start: 03-17-2023 Diabetes mellitus screening Diabetes Screening [facility] Start: 03-10-2023 End: 06-09-2023 Insulin [Units/volume] in Serum or Plasma INSULIN ASSAY BLOOD Lab Routine Insulin resistance, unspecified Expected: 03/10/2023, Expires: 06/09/2023 [facility] Work Phone: Comment on above: Expected: 03/10/2023, Expires: Start: 03-10-2023 End: 06-09-2023 INSULIN ANTIBODY BLD INSULIN ANTIBODY BLD Lab Routine Insulin resistance, unspecified Expected: 03/10/2023, Expires: 06/09/2023 [facility] Work Phone: Comment on above: Expected: 03/10/2023, Expires: Start: 02-11-2023 End: 02-08-2024 [id number] [Mass/volume] in Serum or Plasma B2 MICROGLOBULIN B Lab Routine Megaloblastic anemia due to vitamin B12 deficiency High total serum IgM Elevated sed rate Expected: 02/11/2023 (Approximate), Expires: 02/08/2024 [facility] Work Phone: Comment on above: Expected: 02/11/2023 (Approximate), Expi res: 02/08/2024 Start: 02-11-2023 End: 02-08-2024 Calcium.ionized [Moles/volume] in Blood CALCIUM IONIZED BLOOD Lab Routine Megaloblastic anemia due to vitamin B12 deficiency High total serum IgM Elevated sed rate Expected: 02/11/2023 (Approximate), Expires: 02/08/2024 [facility] Work Phone: Comment on above: Expected: 02/11/2023 (Approximate), Expi res: 02/08/2024 Start: 02-11-2023 End: 02-08-2024 CBC W Auto Differential panel - Blood CBC + DIFF Lab Routine Megaloblastic anemia due to vitamin B12 deficiency High total serum IgM Elevated sed rate Expected: 02/11/2023 (Approximate), Expires: 02/08/2024 [facility] Work Phone: Comment on above: Expected: 02/11/2023 (Approximate), Expi res: 02/08/2024 Start: 02-11-2023 End: 02-08-2024 Cobalamin (Vitamin B12) [Mass/volume] in Serum or Plasma VITAMIN B12 BLOOD Lab Routine Megaloblastic anemia due to vitamin B12 deficiency High total serum IgM Elevated sed rate Expected: 02/11/2023 (Approximate), Expires: 02/08/2024 [facility] Work Phone: Comment on above: Expected: 02/11/2023 (Approximate), Expi res: 02/08/2024 Start: 02-11-2023 End: 02-08-2024 Comprehensive metabolic 2000 panel - Serum or Plasma COMP METABOLIC PANEL Lab Routine Megaloblastic anemia due to vitamin B12 deficiency High total serum IgM Elevated sed rate Expected: 02/11/2023 (Approximate), Expires: 02/08/2024 [facility] Work Phone: Comment on above: Expected: 02/11/2023 (Approximate), Expi res: 02/08/2024 Start: 02-11-2023 End: 02-08-2024 Ferritin [Mass/volume] in Serum or Plasma FERRITIN BLD Lab Routine Megaloblastic anemia due to vitamin B12 deficiency High total serum IgM Elevated sed rate Expected: 02/11/2023 (Approximate), Expires: 02/08/2024 [facility] Work Phone: Comment on above: Expected: 02/11/2023 (Approximate), Expi res: 02/08/2024 Start: 02-11-2023 End: 02-08-2024 Folate [Mass/volume] in Serum or Plasma FOLATE SERUM Lab Routine Megaloblastic anemia due to vitamin B12 deficiency High total serum IgM Elevated sed rate Expected: 02/11/2023 (Approximate), Expires: 02/08/2024 [facility] Work Phone: Comment on above: Expected: 02/11/2023 (Approximate), Expi res: 02/08/2024 Start: 02-11-2023 End: 02-08-2024 Iron and Iron binding capacity panel - Serum or Plasma IRON + TIBC Lab Routine Megaloblastic anemia due to vitamin B12 deficiency High total serum IgM Elevated sed rate Expected: 02/11/2023 (Approximate), Expires: 02/08/2024 [facility] Work Phone: Comment on above: Expected: 02/11/2023 (Approximate), Expi res: 02/08/2024 Start: 02-11-2023 End: 04-13-2023 KAPPA/FARMER,FREE,SER KAPPA/FARMER,FREE,SER Lab Routine Megaloblastic anemia due to vitamin B12 deficiency High total serum IgM Elevated sed rate Expected: 02/11/2023 (Approximate), Expires: 04/13/2023 [facility] Work Phone: Comment on above: Expected: 02/11/2023 (Approximate), Expi res: 04/13/2023 Start: 02-11-2023 End: 02-08-2024 Lactate dehydrogenase [Enzymatic activity/volume] in Serum or Plasma LD LACTATE DEHYDRO Lab Routine Megaloblastic anemia due to vitamin B12 deficiency High total serum IgM Elevated sed rate Expected: 02/11/2023 (Approximate), Expires: 02/08/2024 [facility] Work Phone: Comment on above: Expected: 02/11/2023 (Approximate), Expi res: 02/08/2024 Start: 02-11-2023 End: 02-08-2024 MONOCLONAL PROTEIN, SERUM (BLOOD) MONOCLONAL PROTEIN, SERUM (BLOOD) Lab Routine Megaloblastic anemia due to vitamin B12 deficiency High total serum IgM Elevated sed rate Expected: 02/11/2023 (Approximate), Expires: 02/08/2024 [facility] Work Phone: Comment on above: Expected: 02/11/2023 (Approximate), Expi res: 02/08/2024 Start: 02-11-2023 End: 02-08-2024 Phosphate [Mass/volume] in Serum or Plasma PHOSPHORUS INORGANIC Lab Routine Megaloblastic anemia due to vitamin B12 deficiency High total serum IgM Elevated sed rate Expected: 02/11/2023 (Approximate), Expires: 02/08/2024 [facility] Work Phone: Comment on above: Expected: 02/11/2023 (Approximate), Expi res: 02/08/2024 Start: 02-11-2023 End: 02-08-2024 PROTEIN ELECTROPHORESIS SERUM W/INTERP PROTEIN ELECTROPHORESIS SERUM W/INTERP Lab Routine Megaloblastic anemia due to vitamin B12 deficiency High total serum IgM Elevated sed rate Expected: 02/11/2023 (Approximate), Expires: 02/08/2024 [facility] Work Phone: Comment on above: Expected: 02/11/2023 (Approximate), Expi res: 02/08/2024 Start: 02-11-2023 End: 02-08-2024 Urate [Mass/volume] in Serum or Plasma URIC ACID BLOOD Lab Routine Megaloblastic anemia due to vitamin B12 deficiency High total serum IgM Elevated sed rate Expected: 02/11/2023 (Approximate), Expires: 02/08/2024 [facility] Work Phone: Comment on above: Expected: 02/11/2023 (Approximate), Expi res: 02/08/2024 Start: 01-22-2023 Influenza vaccination [facility] Start: 12-17-2022 End: 10-23-2023 CBC W Auto Differential panel - Blood CBC + DIFF Lab Routine Megaloblastic anemia due to vitamin B12 deficiency Expected: 12/17/2022 (Approximate), Expires: 10/23/2023 [facility] Work Phone: Comment on above: Expected: 12/17/2022 (Approximate), Expi res: 10/23/2023 Start: 12-17-2022 End: 10-23-2023 Cobalamin (Vitamin B12) [Mass/volume] in Serum or Plasma VITAMIN B12 BLOOD Lab Routine Megaloblastic anemia due to vitamin B12 deficiency Expected: 12/17/2022 (Approximate), Expires: 10/23/2023 [facility] Work Phone: Comment on above: Expected: 12/17/2022 (Approximate), Expi res: 10/23/2023 Start: 12-17-2022 End: 10-23-2023 Comprehensive metabolic 2000 panel - Serum or Plasma COMP METABOLIC PANEL Lab Routine Megaloblastic anemia due to vitamin B12 deficiency Expected: 12/17/2022 (Approximate), Expires: 10/23/2023 [facility] Work Phone: Comment on above: Expected: 12/17/2022 (Approximate), Expi res: 10/23/2023 Start: 12-17-2022 End: 10-23-2023 Ferritin [Mass/volume] in Serum or Plasma FERRITIN BLD Lab Routine Megaloblastic anemia due to vitamin B12 deficiency Expected: 12/17/2022 (Approximate), Expires: 10/23/2023 [facility] Work Phone: Comment on above: Expected: 12/17/2022 (Approximate), Expi res: 10/23/2023 Start: 12-17-2022 End: 10-23-2023 Folate [Mass/volume] in Serum or Plasma FOLATE SERUM Lab Routine Megaloblastic anemia due to vitamin B12 deficiency Expected: 12/17/2022 (Approximate), Expires: 10/23/2023 [facility] Work Phone: Comment on above: Expected: 12/17/2022 (Approximate), Expi res: 10/23/2023 Start: 12-17-2022 End: 10-23-2023 Iron and Iron binding capacity panel - Serum or Plasma IRON + TIBC Lab Routine Megaloblastic anemia due to vitamin B12 deficiency Expected: 12/17/2022 (Approximate), Expires: 10/23/2023 [facility] Work Phone: Comment on above: Expected: 12/17/2022 (Approximate), Expi res: 10/23/2023 Start: 10-23-2022 End: 12-23-2022 25-hydroxyvitamin D3 [Mass/volume] in Serum or Plasma VITAMIN D 25 HYDROXY Lab Routine Megaloblastic anemia due to vitamin B12 deficiency Elevated sed rate High total serum IgM Chronic fatigue and malaise JOSE RAFAEL (obstructive sleep apnea) Expected: 10/23/2022, Expires: 12/23/2022 [facility] Work Phone: Comment on above: Expected: 10/23/2022, Expires: Start: 10-23-2022 End: 12-23-2022 C reactive protein [Mass/volume] in Serum or Plasma C-REACTIVE PROTEIN (CRP) Lab Routine Megaloblastic anemia due to vitamin B12 deficiency Elevated sed rate High total serum IgM Chronic fatigue and malaise JOSE RAFAEL (obstructive sleep apnea) Expected: 10/23/2022, Expires: 12/23/2022 [facility] Work Phone: Comment on above: Expected: 10/23/2022, Expires: Start: 10-23-2022 End: 12-23-2022 CBC W Auto Differential panel - Blood CBC + DIFF Lab Routine Megaloblastic anemia due to vitamin B12 deficiency Elevated sed rate High total serum IgM Chronic fatigue and malaise JOSE RAFAEL (obstructive sleep apnea) Expected: 10/23/2022, Expires: 12/23/2022 [facility] Work Phone: Comment on above: Expected: 10/23/2022, Expires: Start: 10-23-2022 End: 12-23-2022 Cobalamin (Vitamin B12) [Mass/volume] in Serum or Plasma VITAMIN B12 BLOOD Lab Routine Megaloblastic anemia due to vitamin B12 deficiency Elevated sed rate High total serum IgM Chronic fatigue and malaise JOSE RAFAEL (obstructive sleep apnea) Expected: 10/23/2022, Expires: 12/23/2022 [facility] Work Phone: Comment on above: Expected: 10/23/2022, Expires: Start: 10-23-2022 End: 12-23-2022 Comprehensive metabolic 2000 panel - Serum or Plasma COMP METABOLIC PANEL Lab Routine Megaloblastic anemia due to vitamin B12 deficiency Elevated sed rate High total serum IgM Chronic fatigue and malaise JOSE RAFAEL (obstructive sleep apnea) Expected: 10/23/2022, Expires: 12/23/2022 [facility] Work Phone: Comment on above: Expected: 10/23/2022, Expires: Start: 10-23-2022 End: 12-23-2022 Erythrocyte sedimentation rate SED RATE WESTERGREN Lab Routine Megaloblastic anemia due to vitamin B12 deficiency Elevated sed rate High total serum IgM Chronic fatigue and malaise JOSE RAFAEL (obstructive sleep apnea) Expected: 10/23/2022, Expires: 12/23/2022 [facility] Work Phone: Comment on above: Expected: 10/23/2022, Expires: 3 Start: 10-23-2022 End: 12-23-2022 Lactate dehydrogenase [Enzymatic activity/volume] in Serum or Plasma LD LACTATE DEHYDRO Lab Routine Megaloblastic anemia due to vitamin B12 deficiency Elevated sed rate High total serum IgM Chronic fatigue and malaise JOSE RAFAEL (obstructive sleep apnea) Expected: 10/23/2022, Expires: 12/23/2022 [facility] Work Phone: Comment on above: Expected: 10/23/2022, Expires: Start: 10-23-2022 End: 12-23-2022 MONOCLONAL PROTEIN, SERUM (BLOOD) MONOCLONAL PROTEIN, SERUM (BLOOD) Lab Routine Megaloblastic anemia due to vitamin B12 deficiency Elevated sed rate High total serum IgM Chronic fatigue and malaise JOSE RAFAEL (obstructive sleep apnea) Expected: 10/23/2022, Expires: 12/23/2022 [facility] Work Phone: Comment on above: Expected: 10/23/2022, Expires: Start: 10-23-2022 End: 12-23-2022 PROT ELECT SERUM WITH DANA AND INTERP PROT ELECT SERUM WITH DANA AND INTERP Lab Routine Megaloblastic anemia due to vitamin B12 deficiency Elevated sed rate High total serum IgM Chronic fatigue and malaise JOSE RAFAEL (obstructive sleep apnea) Expected: 10/23/2022, Expires: 12/23/2022 [facility] Work Phone: Comment on above: Expected: 10/23/2022, Expires: 3 Start: 09-19-2022 End: 08-20-2023 CBC panel - Blood by Automated count CBC Lab Routine Anemia of chronic disease Expected: 09/19/2022 (Approximate), Expires: 08/20/2023 [facility] Work Phone: Comment on above: Expected: 09/19/2022 (Approximate), Expi res: 08/20/2023 Start: 09-19-2022 End: 08-20-2023 Comprehensive metabolic 2000 panel - Serum or Plasma COMP METABOLIC PANEL Lab Routine Elevated LFTs Expected: 09/19/2022 (Approximate), Expires: 08/20/2023 [facility] Work Phone: Comment on above: Expected: 09/19/2022 (Approximate), Expi res: 08/20/2023 Start: 09-19-2022 End: 11-19-2022 TPMT PHENOTYPE/ENZYME ACTIVITY TPMT PHENOTYPE/ENZYME ACTIVITY Lab Routine 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 Expected: 09/19/2022 (Approximate), Expires: 11/19/2022 [facility] Work Phone: Comment on above: Expected: 09/19/2022 (Approximate), Expi res: 11/19/2022 Start: 08-28-2022 End: 10-28-2022 25-hydroxyvitamin D3 [Mass/volume] in Serum or Plasma VITAMIN D 25 HYDROXY Lab Routine Megaloblastic anemia due to vitamin B12 deficiency Elevated sed rate High total serum IgM Chronic fatigue and malaise Expected: 08/28/2022 (Approximate), Expires: 10/28/2022 [facility] Work Phone: Comment on above: Expected: 08/28/2022 (Approximate), Expi res: 10/28/2022 Start: 08-28-2022 End: 07-26-2023 [id number] [Mass/volume] in Serum or Plasma B2 MICROGLOBULIN B Lab Routine Megaloblastic anemia due to vitamin B12 deficiency Elevated sed rate High total serum IgM Chronic fatigue and malaise Expected: 08/28/2022 (Approximate), Expires: 07/26/2023 [facility] Work Phone: Comment on above: Expected: 08/28/2022 (Approximate), Expi res: 07/26/2023 Start: 08-28-2022 End: 10-28-2022 C reactive protein [Mass/volume] in Serum or Plasma C-REACTIVE PROTEIN (CRP) Lab Routine Megaloblastic anemia due to vitamin B12 deficiency Elevated sed rate High total serum IgM Chronic fatigue and malaise Expected: 08/28/2022 (Approximate), Expires: 10/28/2022 [facility] Work Phone: Comment on above: Expected: 08/28/2022 (Approximate), Expi res: 10/28/2022 Start: 08-28-2022 End: 07-26-2023 Calcium.ionized [Moles/volume] in Blood CALCIUM IONIZED BLOOD Lab Routine Megaloblastic anemia due to vitamin B12 deficiency Elevated sed rate High total serum IgM Chronic fatigue and malaise Expected: 08/28/2022 (Approximate), Expires: 07/26/2023 [facility] Work Phone: Comment on above: Expected: 08/28/2022 (Approximate), Expi res: 07/26/2023 Start: 08-28-2022 End: 07-26-2023 CBC W Auto Differential panel - Blood CBC + DIFF Lab Routine Megaloblastic anemia due to vitamin B12 deficiency Elevated sed rate High total serum IgM Chronic fatigue and malaise Expected: 08/28/2022 (Approximate), Expires: 07/26/2023 [facility] Work Phone: Comment on above: Expected: 08/28/2022 (Approximate), Expi res: 07/26/2023 Start: 08-28-2022 End: 10-28-2022 Cobalamin (Vitamin B12) [Mass/volume] in Serum or Plasma VITAMIN B12 BLOOD Lab Routine Megaloblastic anemia due to vitamin B12 deficiency Elevated sed rate High total serum IgM Chronic fatigue and malaise Expected: 08/28/2022 (Approximate), Expires: 10/28/2022 [facility] Work Phone: Comment on above: Expected: 08/28/2022 (Approximate), Expi res: 10/28/2022 Start: 08-28-2022 End: 07-26-2023 Comprehensive metabolic 2000 panel - Serum or Plasma COMP METABOLIC PANEL Lab Routine Megaloblastic anemia due to vitamin B12 deficiency Elevated sed rate High total serum IgM Chronic fatigue and malaise Expected: 08/28/2022 (Approximate), Expires: 07/26/2023 [facility] Work Phone: Comment on above: Expected: 08/28/2022 (Approximate), Expi res: 07/26/2023 Start: 08-28-2022 End: 10-28-2022 Erythrocyte sedimentation rate SED RATE WESTERGREN Lab Routine Megaloblastic anemia due to vitamin B12 deficiency Elevated sed rate High total serum IgM Chronic fatigue and malaise Expected: 08/28/2022 (Approximate), Expires: 10/28/2022 [facility] Work Phone: Comment on above: Expected: 08/28/2022 (Approximate), Expi res: 10/28/2022 Start: 08-28-2022 End: 10-28-2022 KAPPA/FARMER,FREE,SER KAPPA/FARMER,FREE,SER Lab Routine Megaloblastic anemia due to vitamin B12 deficiency Elevated sed rate High total serum IgM Chronic fatigue and malaise Expected: 08/28/2022 (Approximate), Expires: 10/28/2022 [facility] Work Phone: Comment on above: Expected: 08/28/2022 (Approximate), Expi res: 10/28/2022 Start: 08-28-2022 End: 07-26-2023 Lactate dehydrogenase [Enzymatic activity/volume] in Serum or Plasma LD LACTATE DEHYDRO Lab Routine Megaloblastic anemia due to vitamin B12 deficiency Elevated sed rate High total serum IgM Chronic fatigue and malaise Expected: 08/28/2022 (Approximate), Expires: 07/26/2023 [facility] Work Phone: Comment on above: Expected: 08/28/2022 (Approximate), Expi res: 07/26/2023 Start: 08-28-2022 End: 07-26-2023 MONOCLONAL PROTEIN, SERUM (BLOOD) MONOCLONAL PROTEIN, SERUM (BLOOD) Lab Routine Megaloblastic anemia due to vitamin B12 deficiency Elevated sed rate High total serum IgM Chronic fatigue and malaise Expected: 08/28/2022 (Approximate), Expires: 07/26/2023 [facility] Work Phone: Comment on above: Expected: 08/28/2022 (Approximate), Expi res: 07/26/2023 Start: 08-28-2022 End: 07-26-2023 Phosphate [Mass/volume] in Serum or Plasma PHOSPHORUS INORGANIC Lab Routine Megaloblastic anemia due to vitamin B12 deficiency Elevated sed rate High total serum IgM Chronic fatigue and malaise Expected: 08/28/2022 (Approximate), Expires: 07/26/2023 [facility] Work Phone: Comment on above: Expected: 08/28/2022 (Approximate), Expi res: 07/26/2023 Start: 08-28-2022 End: 07-26-2023 PROTEIN ELECTROPHORESIS SERUM W/INTERP PROTEIN ELECTROPHORESIS SERUM W/INTERP Lab Routine Megaloblastic anemia due to vitamin B12 deficiency Elevated sed rate High total serum IgM Chronic fatigue and malaise Expected: 08/28/2022 (Approximate), Expires: 07/26/2023 [facility] Work Phone: Comment on above: Expected: 08/28/2022 (Approximate), Expi res: 07/26/2023 Start: 08-28-2022 End: 07-26-2023 Urate [Mass/volume] in Serum or Plasma URIC ACID BLOOD Lab Routine Megaloblastic anemia due to vitamin B12 deficiency Elevated sed rate High total serum IgM Chronic fatigue and malaise Expected: 08/28/2022 (Approximate), Expires: 07/26/2023 [facility] Work Phone: Comment on above: Expected: 08/28/2022 (Approximate), Expi res: 07/26/2023 Start: 07-15-2022 End: 05-20-2023 [id number] [Mass/volume] in Serum or Plasma B2 MICROGLOBULIN B Lab Routine High total serum IgM Expected: 07/15/2022 (Approximate), Expires: 05/20/2023 [facility] Work Phone: Comment on above: Expected: 07/15/2022 (Approximate), Expi res: 05/20/2023 Start: 07-15-2022 End: 05-20-2023 Calcium.ionized [Moles/volume] in Blood CALCIUM IONIZED BLOOD Lab Routine High total serum IgM Expected: 07/15/2022 (Approximate), Expires: 05/20/2023 [facility] Work Phone: Comment on above: Expected: 07/15/2022 (Approximate), Expi res: 05/20/2023 Start: 07-15-2022 End: 05-20-2023 CBC W Auto Differential panel - Blood CBC + DIFF Lab Routine High total serum IgM Expected: 07/15/2022 (Approximate), Expires: 05/20/2023 [facility] Work Phone: Comment on above: Expected: 07/15/2022 (Approximate), Expi res: 05/20/2023 Start: 07-15-2022 End: 05-20-2023 Comprehensive metabolic 2000 panel - Serum or Plasma COMP METABOLIC PANEL Lab Routine High total serum IgM Expected: 07/15/2022 (Approximate), Expires: 05/20/2023 [facility] Work Phone: Comment on above: Expected: 07/15/2022 (Approximate), Expi res: 05/20/2023 Start: 07-15-2022 End: 09-14-2022 KAPPA/FARMER,FREE,SER KAPPA/FARMER,FREE,SER Lab Routine High total serum IgM Expected: 07/15/2022 (Approximate), Expires: 09/14/2022 [facility] Work Phone: Comment on above: Expected: 07/15/2022 (Approximate), Expi res: 09/14/2022 Start: 07-15-2022 End: 05-20-2023 Lactate dehydrogenase [Enzymatic activity/volume] in Serum or Plasma LD LACTATE DEHYDRO Lab Routine High total serum IgM Expected: 07/15/2022 (Approximate), Expires: 05/20/2023 [facility] Work Phone: Comment on above: Expected: 07/15/2022 (Approximate), Expi res: 05/20/2023 Start: 07-15-2022 End: 05-20-2023 MONOCLONAL PROTEIN, SERUM (BLOOD) MONOCLONAL PROTEIN, SERUM (BLOOD) Lab Routine High total serum IgM Expected: 07/15/2022 (Approximate), Expires: 05/20/2023 [facility] Work Phone: Comment on above: Expected: 07/15/2022 (Approximate), Expi res: 05/20/2023 Start: 07-15-2022 End: 05-20-2023 Phosphate [Mass/volume] in Serum or Plasma PHOSPHORUS INORGANIC Lab Routine High total serum IgM Expected: 07/15/2022 (Approximate), Expires: 05/20/2023 [facility] Work Phone: Comment on above: Expected: 07/15/2022 (Approximate), Expi res: 05/20/2023 Start: 07-15-2022 End: 05-20-2023 PROTEIN ELECTROPHORESIS SERUM W/INTERP PROTEIN ELECTROPHORESIS SERUM W/INTERP Lab Routine High total serum IgM Expected: 07/15/2022 (Approximate), Expires: 05/20/2023 [facility] Work Phone: Comment on above: Expected: 07/15/2022 (Approximate), Expi res: 05/20/2023 Start: 07-15-2022 End: 05-20-2023 Urate [Mass/volume] in Serum or Plasma URIC ACID BLOOD Lab Routine High total serum IgM Expected: 07/15/2022 (Approximate), Expires: 05/20/2023 [facility] Work Phone: Comment on above: Expected: 07/15/2022 (Approximate), Expi res: 05/20/2023 Start: 06-05-2022 End: 03-05-2023 25-hydroxyvitamin D3 [Mass/volume] in Serum or Plasma VITAMIN D 25 HYDROXY Lab Routine Vitamin D deficiency Expected: 06/05/2022 (Approximate), Expires: 03/05/2023 [facility] Work Phone: Comment on above: Expected: 06/05/2022 (Approximate), Expi res: 03/05/2023 Start: 06-05-2022 End: 03-05-2023 C reactive protein [Mass/volume] in Serum or Plasma C-REACTIVE PROTEIN (CRP) Lab Routine Elevated sed rate Elevated C-reactive protein (CRP) Expected: 06/05/2022 (Approximate), Expires: 03/05/2023 [facility] Work Phone: Comment on above: Expected: 06/05/2022 (Approximate), Expi res: 03/05/2023 Start: 06-05-2022 End: 03-05-2023 Cobalamin (Vitamin B12) [Mass/volume] in Serum or Plasma VITAMIN B12 BLOOD Lab Routine Vitamin B12 deficiency Expected: 06/05/2022 (Approximate), Expires: 03/05/2023 [facility] Work Phone: Comment on above: Expected: 06/05/2022 (Approximate), Expi res: 03/05/2023 Start: 06-05-2022 End: 03-05-2023 Erythrocyte sedimentation rate SED RATE WESTERGREN Lab Routine Elevated sed rate Elevated C-reactive protein (CRP) Expected: 06/05/2022 (Approximate), Expires: 03/05/2023 [facility] Work Phone: Comment on above: Expected: 06/05/2022 (Approximate), Expi res: 03/05/2023 Start: 05-06-2022 End: 03-18-2023 [id number] [Mass/volume] in Serum or Plasma B2 MICROGLOBULIN B Lab Routine Megaloblastic anemia due to vitamin B12 deficiency High total serum IgM Expected: 05/06/2022 (Approximate), Expires: 03/18/2023 [facility] Work Phone: Comment on above: Expected: 05/06/2022 (Approximate), Expi res: 03/18/2023 Start: 05-06-2022 End: 03-18-2023 Calcium.ionized [Moles/volume] in Blood CALCIUM IONIZED BLOOD Lab Routine Megaloblastic anemia due to vitamin B12 deficiency High total serum IgM Expected: 05/06/2022 (Approximate), Expires: 03/18/2023 [facility] Work Phone: Comment on above: Expected: 05/06/2022 (Approximate), Expi res: 03/18/2023 Start: 05-06-2022 End: 10-26-2023 CBC W Auto Differential panel - Blood CBC + DIFF Lab Routine Megaloblastic anemia due to vitamin B12 deficiency High total serum IgM Expected: 05/06/2022 (Approximate), Expires: 03/18/2023 [facility] Work Phone: Comment on above: Expected: 05/06/2022 (Approximate), Expi res: 03/18/2023 Start: 05-06-2022 End: 03-18-2023 Comprehensive metabolic 2000 panel - Serum or Plasma COMP METABOLIC PANEL Lab Routine Megaloblastic anemia due to vitamin B12 deficiency High total serum IgM Expected: 05/06/2022 (Approximate), Expires: 03/18/2023 [facility] Work Phone: Comment on above: Expected: 05/06/2022 (Approximate), Expi res: 03/18/2023 Start: 05-06-2022 End: 03-18-2023 Ferritin [Mass/volume] in Serum or Plasma FERRITIN BLD Lab Routine Megaloblastic anemia due to vitamin B12 deficiency High total serum IgM Expected: 05/06/2022 (Approximate), Expires: 03/18/2023 [facility] Work Phone: Comment on above: Expected: 05/06/2022 (Approximate), Expi res: 03/18/2023 Start: 05-06-2022 End: 03-18-2023 Iron and Iron binding capacity panel - Serum or Plasma IRON + TIBC Lab Routine Megaloblastic anemia due to vitamin B12 deficiency High total serum IgM Expected: 05/06/2022 (Approximate), Expires: 03/18/2023 [facility] Work Phone: Comment on above: Expected: 05/06/2022 (Approximate), Expi res: 03/18/2023 Start: 05-06-2022 End: 03-18-2023 Lactate dehydrogenase [Enzymatic activity/volume] in Serum or Plasma LD LACTATE DEHYDRO Lab Routine Megaloblastic anemia due to vitamin B12 deficiency High total serum IgM Expected: 05/06/2022 (Approximate), Expires: 03/18/2023 [facility] Work Phone: Comment on above: Expected: 05/06/2022 (Approximate), Expi res: 03/18/2023 Start: 05-06-2022 End: 03-18-2023 MONOCLONAL PROTEIN, SERUM (BLOOD) MONOCLONAL PROTEIN, SERUM (BLOOD) Lab Routine Megaloblastic anemia due to vitamin B12 deficiency High total serum IgM Expected: 05/06/2022 (Approximate), Expires: 03/18/2023 [facility] Work Phone: Comment on above: Expected: 05/06/2022 (Approximate), Expi res: 03/18/2023 Start: 05-06-2022 End: 03-18-2023 Phosphate [Mass/volume] in Serum or Plasma PHOSPHORUS INORGANIC Lab Routine Megaloblastic anemia due to vitamin B12 deficiency High total serum IgM Expected: 05/06/2022 (Approximate), Expires: 03/18/2023 [facility] Work Phone: Comment on above: Expected: 05/06/2022 (Approximate), Expi res: 03/18/2023 Start: 05-06-2022 End: 03-18-2023 PROTEIN ELECTROPHORESIS SERUM W/INTERP PROTEIN ELECTROPHORESIS SERUM W/INTERP Lab Routine Megaloblastic anemia due to vitamin B12 deficiency High total serum IgM Expected: 05/06/2022 (Approximate), Expires: 03/18/2023 [facility] Work Phone: Comment on above: Expected: 05/06/2022 (Approximate), Expi res: 03/18/2023 Start: 05-06-2022 End: 03-18-2023 Urate [Mass/volume] in Serum or Plasma URIC ACID BLOOD Lab Routine Megaloblastic anemia due to vitamin B12 deficiency High total serum IgM Expected: 05/06/2022 (Approximate), Expires: 03/18/2023 [facility] Work Phone: Comment on above: Expected: 05/06/2022 (Approximate), Expi res: 03/18/2023 Start: 04-05-2022 COVID-19 VACCINE (5 - Pfizer risk series) COVID-19 VACCINE (5 - Pfizer risk series) [facility] Start: 03-09-2022 End: 05-09-2022 Hemoglobin A1c in Blood HGB A1C Lab Routine Elevated glucose Expected: 03/09/2022, Expires: 05/09/2022 [facility] Work Phone: Comment on above: Expected: 03/09/2022, Expires: 2 Start: 02-24-2022 End: 04-26-2022 BARTONELLA AB PANEL BARTONELLA AB PANEL Lab Routine Swelling of lymph nodes Expected: 02/24/2022, Expires: 04/26/2022 [facility] Work Phone: Comment on above: Expected: 02/24/2022, Expires: 2 Start: 02-24-2022 End: 04-26-2022 BRUCELLA AB TOTAL BRUCELLA AB TOTAL Lab Routine Swelling of lymph nodes Expected: 02/24/2022, Expires: 04/26/2022 [facility] Work Phone: Comment on above: Expected: 02/24/2022, Expires: 2 Start: 02-24-2022 End: 04-26-2022 Cryptococcus sp Ag [Presence] in Unspecified specimen by Latex agglutination CRYPTOCOCCUS AG DET Microbiology Routine Swelling of lymph nodes Expected: 02/24/2022, Expires: 04/26/2022 [facility] Work Phone: Comment on above: Expected: 02/24/2022, Expires: 2 Start: 02-24-2022 End: 04-26-2022 HISTOPLASMA AG URINE HISTOPLASMA AG URINE Lab Routine Swelling of lymph nodes Expected: 02/24/2022, Expires: 04/26/2022 [facility] Work Phone: Comment on above: Expected: 02/24/2022, Expires: 2 Start: 02-24-2022 End: 04-26-2022 HIV 1 RNA [#/volume] (viral load) in Serum or Plasma by YESSI with probe detection HIV RNA VIRAL LOAD Lab Routine Swelling of lymph nodes Expected: 02/24/2022, Expires: 04/26/2022 [facility] Work Phone: Comment on above: Expected: 02/24/2022, Expires: 2 Start: 02-24-2022 End: 04-26-2022 SYPHILIS TOTAL W/REFLEX SYPHILIS TOTAL W/REFLEX Lab Routine Swelling of lymph nodes Expected: 02/24/2022, Expires: 04/26/2022 [facility] Work Phone: Comment on above: Expected: 02/24/2022, Expires: 2 Start: 01-22-2022 Influenza vaccination [facility] Start: 08-24-2021 COVID-19 VACCINE (4 - Booster for Pfizer series) COVID-19 VACCINE (4 - Booster for Pfizer series) [facility] Start: 01-22-2021 Influenza vaccination Flu vaccine (Season Ended) Lety Marquez Work Phone: Start: 2020 Lipid panel Lipid screen [facility] Phone: Start: 2020 Mammography [facility] Start: 2020 Screening for malignant neoplasm of breast [facility] Start: 2010 HPV TESTING HPV TESTING [facility] Start: 2010 Screening for malignant neoplasm of cervix [facility] Start: 10-05-2007 HPV Vaccine (1 - Risk 3-dose SCDM series) HPV Vaccine (1 - Risk 3-dose SCDM series) [facility] Start: 2002 DTaP/Tdap/Td Vaccines (1 - Tdap) DTaP/Tdap/Td Vaccines (1 - Tdap) [facility] Start: 2001 PAP TESTING PAP TESTING [facility] Start: 2001 Screening for malignant neoplasm of cervix [facility] Start: 10-05-1999 DTaP,Tdap and Td Vaccines (1 - Tdap) DTaP,Tdap and Td Vaccines (1 - Tdap) [facility] Start: 10-05-1999 DTaP/Tdap/Td vaccine (1 - Tdap) DTaP/Tdap/Td vaccine (1 - Tdap) [facility] Phone: Start: 10-05-1999 Hepatitis B Vaccine (1 of 3 - 19+ 3-dose series) Hepatitis B Vaccine (1 of 3 - 19+ 3-dose series) [facility] Start: 10-05-1999 Hepatitis B Vaccines (1 of 3 - 19+ 3-dose series) Hepatitis B Vaccines (1 of 3 - 19+ 3-dose series) [facility] Start: 10-05-1999 Pneumococcal vaccination Pneumococcal Vaccine (1 of 2 - PCV) [facility] Start: 10-05-1999 Pneumococcal Vaccine: Pediatrics and At-Risk Adult Patients (1 of 2 - PCV) Pneumococcal Vaccine: Pediatrics and At-Risk Adult Patients (1 of 2 - PCV) [facility] Start: 10-05-1999 SHINGRIX VACCINE (1 of 2) SHINGRIX VACCINE (1 of 2) [facility] Start: 10-05-1999 [facility] Start: 10-05-1999 Zoster Vaccines (1 of 2) Zoster Vaccines (1 of 2) [facility] Start: 1998 Adult BMI Follow Up Plan Adult BMI Follow Up Plan [facility] Start: 1998 Adult BMI Screening Adult BMI Screening [facility] Start: 1998 Anxiety Screening Anxiety Screening [facility] Start: 1998 Hepatitis C screening Hepatitis C Screening [facility] Start: 1998 HIV SCREENING HIV SCREENING [facility] Start: 1998 HIV screening HIV Screening [facility] Start: 10-05-1995 HIV screening HIV screen [facility] Phone: Start: 1993 Varicella vaccination Varicella Vaccines (1 of 2 - 13+ 2-dose series) [facility] Start: 1992 COVID-19 Vaccine (1) COVID-19 Vaccine (1) [facility] Phone: Start: 1992 Depression Screening Depression Screening [facility] Start: 1992 Tobacco Screening Tobacco Screening [facility] Start: 10-05-1991 Screening for malignant neoplasm of cervix Cervical Cancer Screening [facility] Start: 1986 PNEUMOCOCCAL (1 - PCV) PNEUMOCOCCAL (1 - PCV) [facility] Start: 1986 Pneumococcal vaccination [facility] Start: 1986 Pneumococcal Vaccine: Pediatrics (0 to 5 Years) and At-Risk Patients (6 to 64 Years) (1 - PCV) Pneumococcal Vaccine: Pediatrics (0 to 5 Years) and At-Risk Patients (6 to 64 Years) (1 - PCV) [facility] Start: 1981 MMR Vaccines (1 of 1 - Standard series) MMR Vaccines (1 of 1 - Standard series) [facility] Start: 1981 Varicella vaccination Varicella Vaccines (1 of 2 - 2-dose childhood series) [facility] Start: 1981 Varicella vaccine (1 of 2 - 2-dose childhood series) Varicella vaccine (1 of 2 - 2-dose childhood series) [facility] Phone: Start: 1980 HEPATITIS B (1 of 3 - 3-dose series) HEPATITIS B (1 of 3 - 3-dose series) [facility] Start: 1980 Hepatitis B Vaccine (1 of 3 - 3-dose series) Hepatitis B Vaccine (1 of 3 - 3-dose series) [facility] Start: 1980 Hepatitis B Vaccines (1 of 3 - 3-dose series) Hepatitis B Vaccines (1 of 3 - 3-dose series) [facility] Start: 1980 Hepatitis C screening Hepatitis C screen [facility] Phone: Start: 1980 HIV screening HIV Screening [facility] Start: 1980 HPV Vaccine: Recommended Based On Risk HPV Vaccine: Recommended Based On Risk [facility] Start: 1980 Lipid panel Lipid Panel [facility] Start: 1980 Screening for osteoporosis Bone Density Scan [facility] Start: 1980 Tobacco Counseling Tobacco Counseling [facility] Start: 1980 Yearly Adult Physical Yearly Adult Physical [facility] 25-hydroxyvitamin D3 [Mass/volume] in Serum or Plasma VITAMIN D 25 HYDROXY Lab Routine Vitamin D deficiency 01/11/2025 1:48 PM EDT [facility] BLOOD TB SCREEN BLOOD TB SCREEN Lab Routine Screening-pulmonary TB 01/11/2025 1:48 PM EDT [facility] C reactive protein [Mass/volume] in Serum or Plasma C-REACTIVE PROTEIN Lab Routine Elevated sed rate Elevated C-reactive protein (CRP) 01/11/2025 1:48 PM EDT [facility] Cardiovascular funct ion eval w/tilt table w/mntr TILT TABLE EVALUATION Cardiology Routine POTS (postural orthostatic tachycardia syndrome) Ordered: 03/09/2022 [facility] Work Phone: Comment on above: Ordered: 03/09/2022 CBC W Auto Different ial panel - Blood CBC and differential Lab Routine Menorrhagia with regular cycle Ordered: 03/23/2024 [employer] Work Phone: Comment on above: Ordered: 03/23/2024 Chronic hepatitis differentiation between hepatitis B and C virus panel - Serum or Plasma HEP REMOTE PANEL BL Lab Routine Elevated LFTs 01/11/2025 1:48 PM EDT [facility] Cobalamin (Vitamin B 12) [Mass/volume] in Serum or Plasma VITAMIN B12 Lab Routine Vitamin B12 deficiency 01/11/2025 1:48 PM EDT [facility] CT Abdomen W contrast IV [facility] End: 03-05-2024 DXA-AXIAL SKELETON DXA-AXIAL SKELETON Radiology Routine Steroid-induced osteoporosis 1 Occurrences starting 02/04/2023 until 03/05/2024 [facility] Work Phone: Comment on above: 1 Occurrences starting 02/04/2023 until 03/05/2024 End: 03-05-2024 DXA-FOREARM SKELETON DXA-FOREARM SKELETON Radiology Routine Steroid-induced osteoporosis 1 Occurrences starting 02/04/2023 until 03/05/2024 [facility] Work Phone: Comment on above: 1 Occurrences starting 02/04/2023 until 03/05/2024 ECG 12 Lead ECG 12 Lead ECG Routine Irregular heart rate 06/09/2023 8:28 AM EST [facility] Work Phone: Erythrocyte sediment ation rate SEDIMENTATION RATE, WESTERGREN Lab Routine Elevated sed rate Elevated C-reactive protein (CRP) 01/11/2025 1:48 PM EDT [facility] Work Phone: hCG, quantitative, hCG, quantitative, Lab Routine Menorrhagia with regular cycle Ordered: 03/23/2024 [employer] Comment on above: Ordered: 03/23/2024 Hemoglobin A1c/Hemoglobin.total in Blood Hemoglobin A1c Lab Routine Menorrhagia with regular cycle Ordered: 03/23/2024 [facility] Comment on above: Ordered: 03/23/2024 Hepatitis B virus co re Ab [Presence] in Serum HEPATITIS B CORE ANTIBODY TOTAL Lab Routine Elevated LFTs 01/11/2025 1:48 PM EDT [facility] Hepatitis B virus galarza rface Ab [Presence] in Serum HEPATITIS B SURFACE ANTIBODY Lab Routine Elevated LFTs 01/11/2025 1:48 PM EDT [facility] Hepatitis B virus galarza rface Ag [Presence] in Serum HEPATITIS B SURFACE ANTIGEN Lab Routine Elevated LFTs 01/11/2025 1:48 PM EDT [facility] Hepatitis C virus Ab [Presence] in Serum HEPATITIS C ANTIBODY IA WITH CONFIRMATION Lab Routine Elevated LFTs 01/11/2025 1:48 PM EDT [facility] End: 03-09-2023 HOME SLEEP APNEA TEST (HSAT) HOME SLEEP APNEA TEST (HSAT) Procedures Routine Somnolence, daytime Snoring 1 Occurrences starting 03/09/2022 until 03/09/2023 [facility] Work Phone: Comment on above: 1 Occurrences starting 03/09/2022 until 03/09/2023 HYDROGEN BREATH TEST B/O HYDROGE N BREATH TEST B/O Procedures Routine Diarrhea, unspecified type Abdominal pressure Ordered: 06/14/2024 [facility] Work Phone: Comment on above: Ordered: 06/14/2024 Oxygen therapy [[facility]] Initiate Oxygen Therapy Protocol Respiratory Care Routine Daily until discontinued starting 10/07/2020 [facility] Work Phone: Comment on above: Daily until discontinued starting 2020 Patient Education Know your Meds Jorge Luis Non Diagnostic Block [facility] Work Phone: Patient referral [facility] Work Phone: End: 03-04-2023 Polysomnogram POLYSOMNOGRAM (PSG) Procedures Routine Somnolence, daytime Snoring 1 Occurrences starting 03/04/2022 until 03/04/2023 [facility] Work Phone: Comment on above: 1 Occurrences starting 03/04/2022 until 03/04/2023 Prothrombin time (PT ) in Blood by Coagulation assay Protime-INR Lab Routine Menorrhagia with regular cycle Ordered: 03/23/2024 [facility] Comment on above: Ordered: 03/23/2024 THIN PREP TIS PAP AN D HR HPV DNA THIN PREP TIS PAP AND HR HPV DNA Pathology and Cytology Routine Well woman exam with routine gynecological exam Ordered: 06/06/2024 [facility] Comment on above: Ordered: 06/06/2024 Thyrotropin [Units/v olume] in Serum or Plasma TSH Lab Routine Menorrhagia with regular cycle Ordered: 03/23/2024 [facility] Comment on above: Ordered: 03/23/2024 Thyroxine (T4) free [Mass/volume] in Serum or Plasma T4, free Lab Routine Menorrhagia with regular cycle Ordered: 03/23/2024 [facility] Comment on above: Ordered: 03/23/2024 XR Thoracic spine 3 Views [facility] Immunizations Immunization Date Immunization Notes Care Provider Fa [facility] 02-23-2023 COVID-19 vaccine, ag e 12+ yr, season (PFIZER-BIONTPinBridge) Lynne Ni MD Work Phone: [facility] 02-08-2022 COVID-19 mRNA Bivale nt Booster (Pfizer) Gay Enciso [employer] Work Phone: [facility] 05-26-2021 COVID-19 mRNA, Comirnaty (Pfizer) Gay Enciso [employer] Work Phone: [facility] 10-19-2020 COVID-19 mRNA, Comirnaty (Pfizer) Gay Encios [employer] Work Phone: [facility] 09-28-2020 COVID-19 mRNA, Comirnaty (Pfizer) Gay Enciso [employer] Work Phone: [facility] Payers Date Payer Category Payer Self-pay [id number] 2024 Medicaid HMO [employer] [id number] 2017 Medicaid (Managed Care) [employer] [id number] 2017 Private Health Insurance [facility] [id number] 2017 Unknown [employer] [id number] 2017-Present [address] [place] [address] [id number] 2009 Medicaid [employer] [id number] 2009-Present [phone] [address] [place] [address] Medicaid [id number] 2009 Medicaid [id number] 1980 Unknown [id number] 2.16.840.1.631815.3.579.2. 185 1980 Unknown [id number] 2.16.840.1.467682.3.579.2. 175 1980 Unknown [id number] 2.16.840.1.950357.3.579.2. 593 1980 Unknown [id number] 2.16.840.1.163808.3.579.2. 593 1980 Unknown [id number] 2.16.840.1.045255.3.579.2. 593 1980 Unknown [id number] 2.16.840.1.535361.3.579.2. 593 1980 Unknown [id number] 2.16.840.1.412188.3.579.2. 59 1980 Unknown [id number] 2.16.840.1.575734.3.579.2. 59 1980 Unknown [id number] 2.16.840.1.826220.3.579.2. 1980 Unknown [id number] 2.16.840.1.728732.3.579.2. 59 1980 Unknown [id number] 2.16.840.1.624411.3.579.2. 1980 Unknown [id number] 2.16.840.1.132924.3.579.2. 1980 Unknown [id number] 2.16.840.1.193920.3.579.2. 1243 1980 Unknown [id number] 2.840.1.662817.3.579.2. 1243 1980 Unknown [id number] 2.840.1.548389.3.579.2. 1258 1980 Unknown [id number] 2.840.1.856766.3.579.2. 1258 1980 Unknown [id number] 2.16840.1.718730.3.579.2. 1258 1980 Unknown [id number] 2.16840.1.743879.3.579.2. 1258 1980 Unknown [id number] 2.16840.1.916038.3.579.2. 1258 1980 Unknown [id number] 2.16.840.1.567387.3.579.2. 1258 1980 Unknown [id number] 2.16.840.1.713968.3.579.2. 1258 1980 Unknown [id number] 2.16.840.1.880861.3.579.2. 1258 1980 Unknown [id number] 2.16.840.1.748120.3.579.2. 1259 1980 Unknown [id number] 2.16.840.1.909579.3.579.2. 1259 1959 Unknown [id number] 1959 Unknown [id number] Unknown [id number] 2.16.840.1.381989.3.579.2. 531 Unknown [id number] 2.16.840.1.626052.3.579.2. 531 Unknown [id number] 2.16.840.1.113750.3.579.2. 531 Unknown [id number] Social History Date Type Detail Facility Start: 05-24-1995 End: 11-08-2023 Tobacco smoking status FLIS Current every day smoker [facility] Start: 10-07-2020 End: 11-08-2023 Tobacco use and exposure Never used [employer] Start: 10-07-2020 End: 02-28-2025 Alcohol intake Lifetime non-drinker (finding) [facility] Phone: Start: 10-07-2020 History SDOH Alcohol Frequency 1 [facility] Phone: Start: 1980 Sex Assigned At Not on file M [employer] Phone: Start: 02-22-2022 End: 07-26-2024 Exposure to SARS-CoV-2 (event) Not sure [facility] Start: 05-24-1995 History of tobacco use Cigarette Smo ker [facility] Start: 05-31-2014 End: 02-28-2025 Cigarettes smoked current (pack per day) - Reported 1 [facility] Start: 10-24-2021 End: 11-29-2024 Alcohol intake Current non-drinker of alcohol (finding) [facility] Start: 10-14-2021 End: 10-24-2021 Exposure to SARS-CoV-2 (event) Unable to assess [facility] Start: 10-22-2022 End: 02-28-2025 Sex Assigned At [facility] Start: 05-31-2014 Adult Depression Screening Assessment 1 [facility] Start: 10-19-2022 Tobacco Comment Current smoker , everyday, 11-20 cigarettes/day [facility] Start: 05-31-2023 Alcohol Comment Caffeine intak e : > 4 cups per day [facility] Start: 08-19-2016 End: 12-16-2023 Tobacco smoking status NHIS Smoker (finding) [facility] Start: 1980 Sex Assigned At Female F [facility] Start: 07-02-2016 End: 08-22-2024 Sex Female (finding) [facility] Start: 02-21-2024 Gender identity Identifies as female gender (finding) [facility] Goals Date Patient Goal Desired Activity /State Functional Status Date Assessment Result Facility 12-25-2014 Are you deaf, or do you have serious difficulty hearing No 12/25/2014 11:14 AM Chichi Womack Ma No [facility] 12-25-2014 Are you blind, or do you have serious difficulty seeing, even when wearing glasses No 12/25/2014 11:14 AM Chichi Womack Ma No [facility] 12-25-2014 Do you have serious difficulty walking or climbing stairs Yes 12/25/2014 11:14 AM Chichi Womack Ma Yes [facility] 12-25-2014 Do you have difficul ty dressing or bathing Yes 12/25/2014 11:14 AM Chichi Womack Ma Yes [facility] 12-25-2014 Because of a physica l, mental, or emotional condition, do you have difficulty doing errands alone such as visiting a physician's office or shopping No 12/25/2014 11:14 AM Chichi Womack Ma No [facility] Mental Status Date Assessment Result Facility 12-25-2014 Because of a physica l, mental, or emotional condition, do you have serious difficulty concentrating, remembering, or making decisions No 12/25/2014 11:14 AM Chichi Womack Ma No [facility] Clinical Notes 05-31-2014 to 02-28-2025 Terence Pacheco MD - 02/28/2025 9:30 AM Homero English MD - 02/14/2025 3:20 PM Elena Salguero RN - 01/24/2025 3:40 PM EDTTelephone Encounter - Merry Chairez, AVILA - 01/18/2025 5:09 PM EDT Note Date & Type Note Facility 02-28-2025 History of Present illness Narrative Images from the original note were not included. Ariadna Haley 1980 Ariadna Haley is a 44 y.o. female presents with [...] 5 years. She has lupus as well as an immunoglobulin issue. She does receive IVIG regularly and is also on a biologic medication and also on prednisone. She follows with [facility] rheumatology and also with [facility] hematology/oncology. She states she does have a lowered [...] the thighs, once daily, 30 day supply Clobetasol Propionate 0.05 % shampoo 1 application to the scalp in the shower topically 3-4 times a week diclofenac sodium 1 % gel ergocalciferol (VITAMIN [...] 5' 7 Wt 291 lb BMI 45.58 kg/m OB Status Having periods Smoking Status Every Day BSA 2.5 m Physical Exam Constitutional: General: She is not in acute distress. Cardiovascular: Rate and Rhythm: Normal rate and regular rhythm. Pulmonary: Breath sounds: Normal breath sounds. Abdominal: Palpations: Abdomen is soft. Skin: Comments: In the upper sacral region, there is an approximately 1 x 3 cm raised, erythematous mass. Currently, no open areas or drainage are noted. [...] dressing changes at documented in this encounter [facility] 02-21-2025 Note [facility] 02-21-2025 Note [facility] 02-14-2025 History of Present illness Narrative Follow up Diagnosis: Hidradenitis Location: [...] treatment with ILK today. ILK today, see [facility] for details. Consent: The risks and benefits of intralesional kenalog were discussed prior to the procedure. Specifically, the risk of skin atrophy was reviewed. It was also emphasized that multiple treatments may be necessary. Verbal consent was obtained from the patient/parent. Method: See [facility] for details on administration. 0.1 [...] Visit: as scheduled documented in this encounter [facility] 01-24-2025 Note [facility] 01-24-2025 History of Present illness Narrative Pt did not receive B12 injection today. Pt called & agreeable to receive it when she returns in 2 weeks for her Benlysta infusion. Pharmacy aware and moving date. Elena Alfonso RN documented in this encounter [facility] 01-18-2025 Telephone encounter Note MC message read by patient . [facility] 01-18-2025 Miscellaneous Notes MC message read by patient . Please Call patient if MyChart note not read to review results/released to My Chart if tests completed at [facility]: High glucose, one borderline inflammatory test and [...] start prior authorization documented in this encounter [facility] 01-18-2025 Telephone encounter Note Please Call patient if MyChart note not read to review results/released to My Chart if tests completed at [facility]: High glucose, one borderline inflammatory test and [...] sq benlysta to IV, start prior authorization [facility] 12-14-2024 Note HNO ID: [id number] Author: JHONATHAN VALE RN Service: ? Author Type: Registered Nurse Type: Progress Notes Filed: 12/14/2024 16:36 Note Text: Ran over 2 hours per patient request. [facility] 12-14-2024 History of Present illness Narrative Ran over 2 hours per patient request. documented in this encounter [facility] 12-14-2024 Note [facility] 12-14-2024 History of Present illness Narrative CMN RECEIVED BY [facility] VIA FAX, COMPLETED, AND PLACED IN PROVIDER MAILBOX FOR SIGNATURE Ama Esparza [employer] SENDING CMN: Josh SIGNED AND DATED CMN, FAXED TO DME & CONFIRMATION PAGE RECEIVED: 12.14.2024 documented in this encounter [facility] 11-30-2024 Evaluation note Diagnosis Onset [...] January 232024 9:23am Other chronic pain acute Septem 2024 9:23am Sacroiliitis acute February 142024 9:23am [facility] Work Phone: [phone]) 784-138707-10-2025 Telephone encounter Note* Telephone Encounter - Enma Hamm RN - 11/30/2024 8:36 AM EDT Pt updated on results. Will continue with IVIG, as previously scheduled. Denied further needs or concerns at this time. Enma Hamm RN [facility]07-10-2025 Miscellaneous Notes* Telephone Encounter - Enma Hamm RN - 11/30/2024 8:36 AM EDT Pt updated on results. Will continue with IVIG, as previously scheduled. Denied further needs or concerns at this time. Enma Hamm RN documented in this encounterMem[facility] History of Present illness Narrative* Vaibhav Carvalho APRN.TRUE - 11/29/2024 8:43 AM EDT Images from the original note were not included. NAME: Ariadna Haley [facility] NO.: [id number] DATE OF SERVICE: .November 29, 2024 (Deven) Some elements in this clinic note that are critical to medical decision making have been carefully reviewed and included from a prior clinic note dated: September 06, 2024 (Deven) Referring Provider: Dr. Manuel Ferris Additional Clinicians involved in Ariadna De Pazlazarofrancisco javier's care: DIAGNOSIS: Multiple symptoms CASE SUMMARY / [...] to monitor; no current intervention required per [facility] recommendations. 7. Pre-diabetes (R73.03) Borderline [...] requiring a recent corticosteroid injection by her production leader. She experiences intermittent fatigue, shortness of breath, [...] Saw saw another infectious disease doctor in [place]. Going to monitor her breast infection, not [...] injections. Shefollows with multiple doctors including and head usher, house carpenter helper, production leader and PCP. She has been told they [...] subcutaneously one time a week. Per PCP berghwfgkgMYSKY-pojuat-rdmglrimk (BMX 1:1:1) 1:1:1 liqd Take 5 mL [...] (Crohn's [Other]) Mother . Vaibhav Carvalho APRN, BATTERY CHARGER TESTER-C, [facility] Provided at: [place], [place] CC: Manuel Ferris MD [address] [facility] [address] documented in this encounterMem[facility] History of Present illness Narrative* [...] Next Visit: as scheduled [id number] Telephone encounter Note* Telephone Encounter - Renea Schneider MA - 11/20/2024 12:00 PM EDT Patient coming in for treatment visit Wednesday11/29/24. Please add lab orders. thanks. Renea Schneider MA [facility]06-23-2025 Chief complaint+Reason for visit Narrative* [...] :29am Sacroiliitis January 17, 2025 10 :29am [facility] Work Phone: 1(957) 399-892906-23-2025 Chief complaint+Reason for visit Narrative * Chief [...] January 17, 2025 10 :29am [facility] Work Phone: 1(997) 634-277306-23-2025 Evaluation note* Diagnosis Onset Date Resolution Status [...] 10:29am Sacroiliitis acute January 17, 2025 10:29am [facility] Work Phone: 1(944) 750-392205-17-2025 History of Present illness Narrative* Lynne Ni [...] visit. Either the patient or their legal automobile sales representative has been informed of the [...] easures, may consider osteoporosis treatment if on termite technician steroids/abnormal bmd, take vitamin D script once [...] neurology/on metoprolol for POTs, avoid aggravating triggers, alf pain recommendations per primary care provider/pain clinic/patient [...] measures, may consider osteoporosis treatment if on alf steroids/abnormal bmd, take vitamin D script once [...] metoprolol for POTs, avoid aggravating triggers, termite technician pain recommendations per primary care provider/pain clinic/patient [...] may consider osteoporosis treatment if on termite technician steroids/abnormal bmd, take vitamin D script if [...] neurology/on metoprolol for POTs, avoid aggravating triggers, alf pain recommendations per primary care provider/pain clinic/patient [...] neurology/on metoprolol for POTs, avoid aggravating triggers, alf pain recommendations per primary care provider/pain clinic/patient [...] Due for eye exam. Labs sent to [facility]/completed in 06/2021 (no results faxed to office, but patient pulled up results on her phone). Chronic current pain in neck, flank area, mid back, knees, legs, arms, all over pain. Better with lyrica 75mg 3times a day. Reports pain 4-12/31. Couple hrs AM stiffness. COVID vaccine [employer] 09/28/20, 10/19/20, 05/26/21. Feels safe at home. [...] pain: yes H/o precedent/frequent infection(s): as above Enthesopathy/Jefferson's/heel/plantar tenderness: hands random painful/tingling Skin thickening, psoriasis, [...] COVID-19 original vaccine, age 12+ yr, monovalent ([employer] - PURPLE TOP) 09/28/2020 10/19/2020 05/26/2021 COVID-19 vaccine, age 12+ yr ([employer] COMIRNATY) 02/23/2023 COVID-19 vaccine, age 12+ yr, bivalent ([employer]) 02/08/2022 Pneumovax no Flu shot no Tetanus [...] (33);NL cbc, cmp, negative hla b27; Outside [place] 06/2021 low vitamin D 16, vitamin b12-307;high [...] Z79.899 Long-term use of high-risk medication Z79.52 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 M79.641, [...] ures, may consider osteoporosis treatment if on alf steroids/abnormal bmd, take vitamin D script once [...] metoprolol for POTs, avoid aggravating triggers, termite technician pain recommendations per primary care provider/pain clinic/patient [...] (200mg) daily with a meal Please see director mobile media solutions every 6-12months while on Hydroxychloroquine. reStart azathioprine [...] touching your toes, sit-ups, using row machine alf pain recommendations per primary care provider/pain clinic [...] video & audio (virtual) or phone or bjxz-ph-qvnt patient care, completing clinical documentation, obtaining and/or [...] support Positioning Spinal Cord Stimulator Comments [facility] ADDITIONAL DEMO Question 10/06/2024 9:06 PM EDT - Filed by Patient Is this visit related to an accident, other than Workers' Compensation? No Is this visit related to Workers' Compensation? No Do you need an vegetable farm manager? No [facility] MYCHART ZOOM MESSAGE Question 10/06/2024 9:06 PM [...] my health Strongly Agree documented in this encounterMemorial [facility]05-[facility]-2025 [facility] Instructions* Patient Instructions* Lynne Ni MD [...] (200mg) daily with a meal Please see director mobile media solutions every 6-12months while on Hydroxychloroquine. azathioprine daily [...] touching your toes, sit-ups, using row machine alf pain recommendations per primary care provider/pain clinic [...] your usual activities immediately. documented in this encounterMemorial [facility]05-16-2025 Telephone encounter Note * Telephone Encounter - Beatriz Sanchez LPN - 10/06/2024 1:46 PM EDT VM left that below message forwarded to her MC. Requested return call if unable to view message. [facility]05-16-2025 Miscellaneous Notes* Telephone Encounter - [...] ergocalciferol 50,000 unit capsule (VITAMIN D2, ISDOL) 34 capsule 1 Sig: Take 1cap by mouth 3times a week x 10weeks, then once a week with food. Authorizing Provider: LYNNE NI Prescription(s) as above. Please process accordingly. Lynne Ni MD documented in this encounterMemorial Health [facility]05-16-2025 Telephone encounter Note * Telephone [...] above. Please process accordingly. Lynne Ni MD [facility]04-30-2025 [facility]25 Note [facility]04-29-2025 History of Present illness Narrative* Deborah Arroyo, [facility] - 09/19/2024 10:00 AM EDT Patient Name [...] GENETIC TESTING: None. SOCIAL HISTORY: Lives in [place], [place] with her and daughter. 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 - Partner's ethnicity: not applicable. - No known -Romanian, Mediterranean, /Andorran, Croatian-Comoran/Cajun, or Ashkenazi Quaker ancestry unless noted above. - Parental consanguinity: [...] not yet known. After this discussion, Ariadna Branchfrancisco javier met with Dr. Lance. Please see her [...] via the connective tissue disorder panel at [facility] for Ariadna's daughter. Follow up will [...] greater than 50% of which was spent ayrg-bz-gsnv counseling. This plan is being carried out per Dr. Lance's recommendations. Deborah Arroyo, MS, [facility] Licensed Genetic Counselor EPIC CC: Dr. Last Lance CC: Ariadna Haley Via [employer] documented in this encounterMemorial Health [facility]04-29-2025 [facility] History of Present illness Narrative* Ny Lance MD - 09/19/2024 7:46 AM EDT Images from the original note were not included. Department of Medical Genetics and Genomics OUTPATIENT NEW VISIT NOTE Recording using [employer] software for draft documentation of the visit was discussed with the patient/authorized automobile sales representative; all questions welcomed and answered. Patient/authorized automobile sales representative agreed to proceed Patient Name: [...] has a history of using a palate wheel buffer. She reports delayed wound healing, possible hyperextensible [...] Gangrene - 02/04/2023 Steroid-Induced Osteoporosis - 02/04/2023 Correction Current Use of Systemic Steroids - 02/04/2023 [...] subcutaneously one time a week. Per PCP attpascxcpWQWUP-wrjjoq-truqkegpf (BMX 1:1:1) 1:1:1 liqd Take 5 mL [...] visit. PAST MEDICAL HISTORY: I have reviewed PM on September 19, 2024 PAST MEDICAL HISTORY [...] OF ablation SOCIAL HISTORY: - Lives in [place], [place] with her and daughters. - Highest level of education: High school. 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 Paternal - . - No known -Romanian, Mediterranean, /Andorran, Ashkenazi Quaker, Croatian-Comoran/Cajun, or Maxwell ancestry unless noted above. - [...] pedigree was collected by Deborah Arroyo MS, [facility] at the patient's separate genetic counseling encounter. The pedigree will be scanned into [employer]. This information was reviewed with thefamily and [...] Management For Physiotherapists by Katarina Reza (Eds.), David Negar, [place], 2003, ISBN [id number]; Examination and Treatment of a Patient with [...] symptoms when present, recommending follow-up with a director of graduate admissions. 2. Chronic pain syndrome (G89.4) Chronic joint [...] 87 minutes was spent with patient for ziiq-vq-qcys evaluation, discussion of genetic differential diagnoses, management plan, counseling, chart review, documentation and coordination of care. Portions of family history were obtained by Deborah Arroyo MS, [facility], which were reviewed with family and edited as necessary. All questions were answered to the best of my knowledge. Contact information has been provided to the patient. Ny Lance MD Staff Reel Blade Bender Furnace Tender Department of Medical Genetics and Genomics (DM) [facility] Appointments: [facility] CC: Deborah Arroyo MS, [facility] Ariadna Haley (via [employer]) [address] [place] [id number] Lynne Ni MD CC to PCP via fax: Manuel Ferris [facility] [place] [address] documented in this encounterMemorial Health [facility]04-28-2025 Telephone encounter Note * Telephone Encounter - Lynne Ni MD - 09/18/2024 4:52 PM EDT Notify patient medication sent as requested Thank you. Patient's request for medication is as follows: Requested Prescriptions Pending Prescriptions Disp Refills belimumab (BENLYSTA) 200 mg/mL auto-injector 12 mL 3 Sig: Inject 200mg (1 pen) subcutaneously once weekly Prescription(s) as above. Please process accordingly. Lynne Ni MD [facility]04-28-2025 Miscellaneous Notes* Telephone Encounter - [...] MD * Telephone Encounter - Pamella Pichardo RPh [...] (1 pen) subcutaneously once weekly Patient prefers: [facility] Thank you! Maria Esther Pichardo, PharmD Clinical Pharmacist, [employer] [facility] ; Pool: P [facility] Pool #: [id number] documented in this encounterMemorial Health [facility]04-28-2025 Telephone encounter Note * Telephone Encounter - Macarena Sanchez - 09/18/2024 4:03 PM EDT Patient will be calling to reschedule her IV IG and benlysta. She needs to find a patient support associate and will call back with the dates that she will be available. [facility]04-28-2025 Miscellaneous Notes* Telephone Encounter - Macarena Sanchez - 09/18/2024 4:03 PM EDT Patient will be calling to reschedule her IV IG and benlysta. She needs to find a patient support associate and will call back with the dates that she will be available. documented in this encounterMemorial Health [facility]04-28-2025 Telephone encounter Note * Telephone [...] (1 pen) subcutaneously once weekly Patient prefers: [facility] Thank you! Maria Esther Pichardo, PharmD Clinical Pharmacist, [employer] [facility] ; Pool: P [facility] Pool #: [id number] [facility]04-22-2025 Telephone encounter Note* Telephone Encounter - Karina Pino - 09/12/2024 2:35 PM EDT Patient has been scheduled at [place] [address]-22-2025 Miscellaneous Notes* Telephone Encounter - Karina Pino - 09/12/2024 2:35 PM EDT Patient [place] been scheduled at [place] * Telephone Encounter - Sherrie Cortes - [...] below scheduling for the drug. Cesilia Hicks RPh You25 minutes ago (11:20 AM) DOMINGO Please schedule her every 2 weeks for 3 doses, then every 4 weeks for Benlysta. Cesilia Vicente Laura, RPh You27 minutes ago (11:18 AM) DOMINGO Auth is submitted and pending - okay to set her up 7+ days out. When you call her ask her when she had her last SQ dose, per the provider okay to schedule the IV dose 1 week after her SQ dose. Cesilia Vicente * Telephone Encounter - Lynne Ni MD [...] to Rheum provider. Anahi Becerril RN nurse operations manager assistant: patient would like to know if she can bring her 8 year old to [facility]]in the summer. Basia Samuel RN documented in this encounterMemorial Health [facility]04-22-2025 Telephone encounter Note * Telephone [...] daughter recommendations and patient informed. Sherrie Cortes [facility]04-21-2025 Telephone encounter Note* Telephone Encounter - Sherire Cortes - 09/11/2024 11:46 AM EDT Images from the original note were not included. Call placed to patient. She states her last SQ injection was on Wednesday, 09/09. Patient wants to hold off on scheduling right now due to family arrangements and will contact our office when she is ready to scheduled. Informed patient of the below scheduling for the drug. Cesilia Hicks RPh You25 minutes ago (11:20 AM) DOMINGO Please schedule her every 2 weeks for 3 doses, then every 4 weeks for Benlysta. Thanks, Cesilia Holman RPh You27 minutes ago (11:18 AM) DOMINGO Auth is submitted and pending - okay to set her up 7+ days out. When you call her ask her when she had her last SQ dose, per the provider okay to schedule the IV dose 1 week after her SQ dose. Thanks, Cesilia [facility]04-17-2025 Telephone encounter Note* Telephone Encounter - Lynne Ni MD - 09/07/2024 12:52 PM EDT Please start prior authorization for IV benlysta Signed therapy plan with loading doses if approved by insurance. May schedule 1week after last sq injection benlysta pen if approved. Thank you [facility]04-17-2025 Telephone encounter Note* Telephone Encounter - Enma Hamm RN - 09/07/2024 9:04 AM EDT Results discussed with pt. She is set for IVIG 10/04/24. She denies further questions needs or concerns at this time. Enma Hamm RN [facility]04-17-2025 Miscellaneous Notes* Telephone Encounter - Enma Hamm RN - 09/07/2024 9:04 AM EDT Results discussed with pt. She is set for IVIG 10/04/24. She denies further questions needs or concerns at this time. Enma Hamm RN documented in this encounterMemorial Health System [facility]04-16-2025 Evaluation note* Diagnosis Onset Date Resolution Status Admit Date Lumbosacral spondylosis acute A pril 2024 3:42pm Other chronic pain acute September 06, 2024 3:42pm Sacroiliitis acute September 06, 2024 3:42pm Lumbosacral spondylosis acute J une 2024 11:15am Other chronic pain acute October 232024 11:15am Sacroiliitis acute November 13, 025 11:15am [facility] Work Phone: [phone]) 797-611904-16-2025 Evaluation note* Diagnosis Onset Date Resolution Status Admit Date Lumbosacral spondylosis acute A pril 2024 3:42pm Other chronic pain acute September 06, 2024 3:42pm Sacroiliitis acute September 06, 2024 3:42pm Lumbosacral spondylosis acute J une 2024 11:15am Other chronic pain acute October 232024 11:15am Sacroiliitis acute November 13, 025 11:15am Lumbosacral spondylosis acute J 2024 9:03am Other chronic pain acute November 212024 9:03am Sacroiliitis acute November 30 9:03am [facility] Work Phone: 1(195) 991-110604-16-2025 Telephone encounter Note* Telephone Encounter - Basia Samuel RN - 09/06/2024 4:20 PM EDT Patient has requested to switch from Benlysta injections to infusions. Will forward to Rheum provider. Anahi Becerril RN nurse operations manager assistant: patient would like to know if she can bring her 8 year old to treatmentsin the summer. Basia Samuel RN [facility]04-16-2025 History of Present illness Narrative* Vaibhav Carvalho APRN.CNP - 09/06/2024 9:00 AM EDT Images from the original note were not included. NAME: Ariadna Haley CLINIC NO.: [id number] DATE OF SERVICE: September 06, 2024 (Deven) [...] injections. Shefollows with multiple doctors including and head usher, house carpenter helper, production leader and PCP. She has been told they [...] THREE TIMES A DAY^Disp: 135 tablet^Rfl: 1 wwuortlsruIOGIB-bmsavo-ylnfpytsc (BMX 1:1:1) 1:1:1 liqd^Take 5 mL by [...] (Crohn's [Other]) Mother . Vaibhav Carvalho APRN, BATTERY CHARGER TESTER-C, [facility]ology [facility] Services Provided at: [place], [place] CC: Manuel Ferris MD [address] [address] documented in this encounterMemorial Health System [facility]04-16-2025 NoteC[facility]04-14-20[facility] History of Present illness Narrative* Gordo Barfield MD - 09/04/2024 3:20 PM EDT Subjective Patient ID: Ariadna Haley is a 43 y.o. female who presents for Thyroid Nodule (Follow up ultrasound [facility] 08/24/24) Thyroid US shows a [id number] left inf pole TR4 nodule. 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 Depression, recurrent ([facility]) 06/09/2023 Discoid lupus erythematosus ([facility]) 02/14/2022 Disturbance of skin sensation 07/06/2023 Elevated sed rate 03/05/2021 High total serum IgM 03/05/2021 Enthesopathy of hip region 07/06/2023 Essential hypertension ([facility]) 06/09/2023 Excessive and frequent menstruation with irregular cycle 09/24/2022 Family history of Crohn's disease 03/05/2021 Hair loss 03/05/2021 Hyperlipidemia ([facility]) 05/31/2014 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 02/04/2023 Long-term use of high-risk medication 06/15/2022 Long-term use of Plaquenil 03/05/2021 LPRD (laryngopharyngeal reflux disease) 07/06/2023 Megaloblastic anemia due to vitamin B12 deficiency 03/04/2022 Myalgia 07/06/2023 Obesity, Class III, BMI 40-49.9 (morbid obesity) ([facility]) 09/07/2022 Obstructive [...] Insulin resistance 03/07/2024 Lupus erythematosus 04/06/2024 Sacroiliitis ([facility]) 04/06/2024 Resolved Ambulatory Problems Diagnosis Date Noted [...] % gel ergocalciferol (Vitamin D2) 1.25 MG (57297 UT) capsule Take 50,000 Units by mouth [...] to visit. Objective Last Recorded Vitals Vitals: 04/14/25 1504 BP: 112/73 Pulse: 101 ENT Physical [...] for more aggressive care documented in this encounterBarnes-Jewish West County HospitalLzftfsqgjj76-27-9985 Telephone encounter Note* Telephone Encounter - Blank Kimball - 09/02/2024 10:28 AM EDT Called and spoke with patient, patient is scheduled for a VV on 10/07/24 at 8:00am. Patient stated will complete labs a walk in [facility]04-12-2025 Miscellaneous Notes* Telephone Encounter - [...] Ni MD * Telephone Encounter - Cora Hunt, RN - 09/01/2024 10:53 AM EDT Images [...] diagnoses: Vitamin D deficiency documented in this encounterMemorial Health System [facility]04-11-2025 Telephone encounter Note * Telephone [...] above. Please process accordingly. Lynne Ni MD [facility]04-11-2025 Telephone encounter Note* Telephone Encounter [...] Ni MD Assoc. diagnoses: Vitamin D deficiency [facility]04-07-2025 Telephone encounter Note* Telephone Encounter - Renea Schneider MA - 08/28/2024 11:04 AM EDT Do you want labs? Patient coming in Wednesday09/06/24 for follow up treatment. Thanks, Renea Schneider MA [facility]04-01-2025 Miscellaneous Notes* Telephone Encounter - Renea Schneider MA - 08/28/2024 11:04 AM EDT Do you want labs? Patient coming in Wednesday09/06/24 for follow up treatment. Thanks, Renea Schneider MA documented in this encounterMemorial Health [facility]04-01-2025 Miscellaneous Notes* Telephone Encounter - Renea Schneider MA - 11/20/2024 12:00 PM EDT Patient coming in for treatment visit Wednesday11/29/24. Please add lab orders. thanks. Renea Schneider MA documented in this encounterMemorial Health [facility]03-27-2025 NoteC[facility]03-18-2025 Telephone encounter Note* Telephone Encounter - [...] and patient is aware. Basia Samuel RN [facility]03-18-2025 Miscellaneous Notes* Telephone Encounter - [...] aware. Basia Samuel RN documented in this encounterMemorial Health System [facility]03-18-2025 NoteCleveland Clinic [facility]03-18-2025 History of Present illness Narrative* Basia Samuel RN - 08/08/2024 9:03 AM EDT Patient states that she spoke with provider and she will defer IV iron for now, she is taking oral iron and will have labs rechecked in 1 month Basia Samuel RN documented in this encounterMemorial Health System [facility]03-05-2025 History of Present illness Narrative* [...] treated by rheumatology at [facility] on steroids, Plaquenil and monoclonal [...] , Rfl: ergocalciferol (Vitamin D-2) 1.25 MG (12165 UT) capsule, Take 1 capsule (50,000 Units) [...] Attestation By signing my name below, ICarina CARLIN , Scribe attest that this documentation has [...] exam, discussion and plan. documented in this encounterSumma [facility] Work Phone: 1(739) 919-786403-05-2025 Instructions* Patient Instructions* Aissatou Hanson RN - [...] time of your visit. documented in this encounterSumma Health [facility] Work Phone: 1(290) 455-502603-04-2025 History of Present illness Narrative* Bernabe English [...] ointment bid. On Plaquenil and Benlysta from house carpenter helper and started IVIG from netbackup administrator. Follow up Diagnosis: Hidradenitis Location: thighs Last [...] given frequent flares of thrush. Start Nystatin 115134 unit suspension qid x 14 days. Recommended [...] not swallow it. Related Medications nystatin (Mycostatin) 347520 UNIT/ML suspension Take 4 mL (400,000 Units) [...] is needed. Instructed to follow up with TRAIN ANNOUNCER for further work up. Next Visit: 1 year documented in this encounterBarnes-Jewish West County HospitalRvmylhlmyr93-28-5675 History of Present illness Narrative* Luna Emanuel [...] been reviewed prior to dispensing the medication. Greenhouse Grower Assessment Patient confirmed: Yes Med/dose confirmed: Yes Supplies needed: No supplies needed Missed doses: No Copay amount: 0 Payment confirmed: Yes Delivery method: FedEx Signature required: Waived on patient request Delivery address: [address] [place] [address] Delivery date: 07/27/24 Questions or concerns for the pharmacist?: No Did you have any side effects believed to be related to this medication, that resulted in hospitalization?: No Current Outpatient Medications on File Prior to Visit Medication Sig xsxgrzhlzvXJQUS-ohsssc-kejyutbwd (BMX 1:1:1) 1:1:1 liqd Take 5 mL [...] facility-administered medications on file prior to visit. [facility] RX SPECIALTY CLINICAL ASSESSMENT - INFLAMMATORY [...] longer tolerated. Luna Emanuel documented in this encounterMemorial Health System [facility]03-04-2025 NoteCleveland Clinic Mer[facility]02-27-2025 NoteHNO ID: [id number] Author: ALHAJI HEAD, DO Service: ? Author Type: Physician Type: Progress Notes Filed: 07/21/2024 13:05 Note Text: VIRTUAL VISIT PROGRESS NOTE This is a virtual visit using [employer] Video Visit. It required patient-provider interaction for the medical decision making as documented below. I have communicated my name and active licensure. The patient's identity and physical location were verified at the time of this visit. Either the patient or their legal automobile sales representative has been informed of the [...] of 18 Current Outpatient Medications Medication Sig opeqeporxwPZHUB-siomxm-nfuiabzjf (BMX 1:1:1) 1:1:1 liqd Take 5 mL [...] WHILE ON* belimumab ( (more content not included)...[facility]02-27-2025 History of Present illness Narrative* Alhaji Head DO - 07/20/2024 11:41 AM EST VIRTUAL VISIT PROGRESS NOTE This is a virtual visit using [employer] Zoom Video Visit. It required patient- provider interaction for the medical decision making as documented below. I have communicated my name and active licensure. The patient's identity and physical location wereverified at the time of this visit. Either the patient or their legal automobile sales representative has been informed of the [...] of 18 Current Outpatient Medications Medication Sig gpzgcuzdmfSJSFD-ljlbma-kxnlwrpxp (BMX 1:1:1) 1:1:1 liqd Take 5 mL [...] on the R. The patient or authorized automobile sales representative has agreed to proceed with [...] axillary nodule which is being followed by wad blanking press adjuster. Through shared decision making with the patient, [...] DO July 21, 2024 documented in this encounterMemorial Health System [facility]02-26-2025 [place] [address] Pain Management Procedure Note Signed Patient: Ariadna Haley MR#: [id number] : 1980 Acct:[id number] Age/Sex: 43 / F Adm Date: 5 Loc: Room: Type: [facility] Attending Dr: Adolfo Kang MD Copies to: [...] MD 07/19/24 1104 Signed By: 07/19/24 1134 [facility]02-19-2025 Instructions* Patient Instructions* Marky Barnes PA-C - 07/12/2024 2:33 PM EST Alginate therapy (Reflux Raft, Reflux Gourmet) documented in this encounterMemorial Health System [facility] Hospital02-19-2025 NoteCleveland Clinic [facility]02-19-2025 History of Present illness Narrative* Marky Barnes PA-C - 07/12/2024 2:14 PM EST Images from the original note were not included. [facility] NOTE CC: Ariadna Haley is a [...] Current medication(s): Current Outpatient Medications Medication Sig ggtppojhkxUGDKD-loxkxh-xpowpnzet (BMX 1:1:1) 1:1:1 liqd Take 5 mL [...] Level: 3 - Low documented in this encounterMemorial Health System [facility]02-17-2025 Evaluation note* Diagnosis Onset Date Resolution Status Admit Date Lumbosacral spondylosis acute F ebruary 2024 3:16pm Other chronic pain acute Februa 2024 3:16pm Sacroiliitis acute June 3:16pm [facility] Work Phone: 1(965) 692-376802-17-2025 Evaluation note* Diagnosis Onset Date Resolution Status Admit Date Lumbosacral spondylosis acute F ebruary 2024 3:16pm Other chronic pain acute Februa 2024 3:16pm Sacroiliitis acute June 3:16pm Lumbosacral spondylosis acute M 2024 3:40pm Other chronic pain acute July 31, 2024 3:40pm Sacroiliitis acute July 31, 2024 3:40pm [facility] Work Phone: [phone] Telephone encounter Note* Telephone Encounter - Krista Braswell MA - 07/10/2024 7:28 AM EST Pt was notified via . [facility]02-17-2025 Miscellaneous Notes* Telephone Encounter [...] accordingly. Lynne Ni MD documented in this encounterMemorial Health System [facility]02-16-2025 Telephone encounter Note * Telephone [...] a week with food. Authorizing Provider: LYNNE IN Prescription(s) as above. Please process accordingly. Lynne Ni MD [facility]02-06-2025 History of Present illness [...] been reviewed prior to dispensing the medication. Greenhouse Grower Assessment Patient confirmed: Yes Med/dose confirmed: Yes Supplies needed: No supplies needed Missed doses: No Estimated days supply on hand: 1 Copay amount: 0 Payment confirmed: Yes Delivery method: FedEx Signature required: Waived on patient request Delivery address: [address] [place] [address], [facility] [address] Delivery date: 07/05/24 Questions or concerns for [...] facility-administered medications on file prior to visit. [facility] RX SPECIALTY CLINICAL ASSESSMENT - INFLAMMATORY [...] longer tolerated. Luna Emanuel documented in this encounterMemorial Health System [facility]02-06-2025 NoteCleveland Clinic [facility]01-31-2025 Telephone encounter Note* Telephone Encounter - Krista Fonseca MA - 06/23/2024 8:27 AM EST Pt [facility] been [facility] via [facility]01-31-2025 Miscellaneous Notes* Telephone Encounter - Krista Fonseca MA - 06/23/2024 8:27 AM EST Pt has been notified via [employer]. * Telephone Encounter - Lynne Ni [...] accordingly. Lynne Ni MD documented in this encounterMemorial Health System [facility]01-30-2025 Telephone encounter Note * Telephone [...] above. Please process accordingly. Lynne Ni MD [facility]01-29-2025 Telephone encounter Note* Telephone Encounter - Sherrie Cortes - 06/21/2024 2:10 PM EST Thanks for the clarification! I didn't schedule the patient yet for Iron because of the question below so we are all good. Thank you! Sherrie Cortes [facility]01-29-2025 Miscellaneous Notes* Telephone Encounter [...] we will recheck. thanks documented in this encounterMemorial Health System [facility] Hospital01-29-2025 Telephone encounter Note * Telephone [...] is aware you will call if needed. [facility]01-29-2025 Telephone encounter Note* Telephone Encounter - Vaibhav Carvalho APRN.CNP - 06/21/2024 1:07 PM EST Ok that is fine she can try oral iron Ferrous sulfate 325 mg every other day. Ok to keep her next appointment and we will recheck. thanks [facility]01-28-2025 Telephone encounter Note* Telephone Encounter - Sherrie Cortes - 06/20/2024 8:38 AM EST Left another message for patient. Sent MyChart to call back to schedule infusions when she's ready to schedule and provided phone number. Sherrie Cortes [facility]01-28-2025 Miscellaneous Notes* Telephone Encounter [...] callback with any questions. documented in this encounterMemorial Health System [facility] Hospital01-24-2025 Telephone encounter Note * Telephone Encounter - Sherrie Cortes - 06/16/2024 3:32 PM EST Call placed to patient, no answer. Left detailed message to call back to schedule for Venofer. Sherrie Cortes [facility]01-24-2025 Telephone encounter Note* Telephone Encounter - Vaibhav Carvalho APRN.CNP - 06/16/2024 12:26 PM EST Called patient and left a message regarding iron infusions. I did inform patient that she is low oniron and we can replace with IV infusion. Will have the office call to schedule. Encouraged to callback with any questions. [facility]01-23-2025 Telephone encounter Note* Telephone [...] Pt had recent mammogram that was negative [facility] HospitalJwssjiqrau47-19-6792 Miscellaneous Notes* Telephone Encounter - KELVIN Cabrera [...] mammogram that was negative documented in this encounterBarnes-Jewish West County HospitalQtpaxfdpak49-02-8311 History of Present illness Narrative* Iraida Pate APRN.TRUE - 06/14/2024 10:43 AM EST Glucose - SIBO CPT 63217 Hydrogen Breath Test Ariadna Haley 1980 June 14, 2024 Referring Physician: Bandar Portillo NP Indication: NSG TEST INDICATIONS: Diarrhea R19.7, Abdominal Pressure R10.9 Weight: 275 lbs Location: [facility] Duration of Test: 2 hrs Hydrogen Methane CO2 MEASURED CORRECTION FACTOR TESTERS NAME Baseline 9:00 am 1 5 5.1 1.07 Christopher Sullivan MA Test Solution Given: 100 gm glucose 10 oz liquid Christopher Sullivan MA #1 - 15 minutes 9:15 am 1 5 4.1 1.34 Christophermaria e Sullivan MA #2 - 30 minutes 9:30 am 1 5 4.6 1.19 Christophermaria e Sullivan MA #3 - 45 minutes 9:45 am 1 5 4.0 1.37 Christophermaria e Sullivan, MA #4 - 60 minutes 10:00 am 1 6 3.7 1.48 Christopher Sullivan MA #5 - 75 minutes 10:15 am 1 4 5.0 1.10 Christophermaria e Sullivan MA #6 - 90 minutes 10:30 am 1 5 4.2 1.30 Christophermaria e Sullivan, MA #7 - 105 minutes 10:45 am 1 5 4.5 1.22 Christophermaria e Sullivan, MA #8 - 120 minutes 11:00 am 5 6 4.6 1.19 Christopher Sullivan MA Guidelines Baseline < 10 ppm Hydrogen (H2) > 20 ppm over baseline Methane (CH4) > 20 ppm over baseline Final Test Results: negative Physician Signature: Iraida Pate APRN.PRINTING GRAY CLOTH TENDER documented in this encounterMemorial Health System [facility]01-21-2025 Progress note* Allied Health - [...] 13, 2024 TIME: 10:29 AM PAGER/CONTACT #: [facility]01-21-2025 Miscellaneous Notes* Allied Health [...] 10:29 AM PAGER/CONTACT #: documented in this encounterMemorial Health System [facility]01-21-2025 NoteC[facility]01-21-2025 History of Present illness Narrative* Vaibhav Carvalho APRN.TRUE - 06/13/2024 9:07 AM EST Images from the original note were not included. NAME: Ariadna Haley [facility] NO.: [id number] DATE OF SERVICE: June 13, 2024 (Deven) [...] injections. Shefollows with multiple doctors including and head usher, house carpenter helper, production leader and PCP. She has been told they [...] (Crohn's [Other]) Mother . Vaibhav Carvalho APRN, BATTERY CHARGER TESTER-C, OCN Hematology and Oncology Services Provided at: [place], [place] CC: Manuel Ferris MD [address] [facility] [address] documented in this encounterMemorial Health System [facility]01-20-2025 NoteC[facility] Clinic [facility]01-20-2025 History of Present illness Narrative* Lee Friedman - 06/12/2024 2:31 PM EST CMN RECEIVED BY [employer] VIA FAX, COMPLETED, AND PLACED IN PROVIDER MAILBOX FOR SIGNATURE Lee Friedman Coordinator [employer] SENDING CMN: Josh SIGNED AND DATED CMN, FAXED TO DME & CONFIRMATION PAGE RECEIVED: 06.28.2024 documented in this encounterMemorial Health System [facility]01-20-2025 Telephone encounter Note * Telephone Encounter - Margret Cuenca MA - 06/12/2024 12:00 PM EST Patient has an OTV appointment on 06/13. Please place lab orders. Margret Cuenca MA [facility]01-20-2025 Miscellaneous Notes* Telephone Encounter - Margret Cuenca MA - 06/12/2024 12:00 PM EST Patient has an OTV appointment on 06/13. Please place lab orders. Margret Cuenca MA documented in this encounterMemorial Health System [facility]01-14-2025 History of Present illness Narrative* [...] been reviewed prior to dispensing the medication. Greenhouse Grower Assessment Patient confirmed: Yes Med/dose confirmed: Yes Supplies needed: No supplies needed Missed doses: No Estimated days supply on hand: 1 Copay amount: 0 Payment confirmed: Yes Delivery method: FedEx Signature required: Waived on patient request Delivery address: [address] [place], [facility] [address] Delivery date: 06/08/24 Questions or concerns for [...] facility-administered medications on file prior to visit. [facility] RX SPECIALTY CLINICAL ASSESSMENT - INFLAMMATORY [...] longer tolerated. Luna Emanuel documented in this encounterMemorial Health System [facility] Hospital01-14-2025 NoteC[facility]01-14-2025 History of Present illness Narrative* KELVIN [...] Ambulatory Problems Diagnosis Date Noted Autoimmune disease ([facility]) 06/01/2023 Fibromyalgia [...] Tobacco use disorder 07/06/2023 Cytomegalovirus infection (HCC) ([facility]) 07/06/2023 Depression, recurrent (CMS/HCC) 06/09/2023 Discoid lupus erythematosus (CMS/HCC) 02/14/2022 Disturbance of skin sensation 07/06/2023 Elevated sed rate 03/05/2021 High total serum IgM 03/05/2021 Enthesopathy of hip region 07/06/2023 Essential hypertension (CMS/HCC) 06/09/2023 Excessive and frequent menstruation with irregular cycle 09/24/2022 Family history of Crohn's disease 03/05/2021 Hair loss 03/05/2021 Hyperlipidemia (CMS/HCC) 05/31/2014 penitentiary 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 02/04/2023 Long-term [...] Chronic laryngopharyngitis COVID-19 vaccine administered x 2 ([employer]) Difficulty walking Fatigue Fibromyalgia, primary GERD (gastroesophageal [...] behalf of: KELVIN Cabrera documented in this encounterBarnes-Jewish West County HospitalUeuoczzrhp77-11-9021 NoteCleveland Clinic Mercy Hospital12-23-2024 History of Present illness Narrative* Deisy Jaime LSW - 05/15/2024 9:09 AM EST Patient's name appears on the [facility] First Time Treatment Report for a non- oncology treatment. No psychosocial assessment is indicated. BILL Rosenberg Goals of Care Advance Directives are not on file. documented in this encounterMemorial Health System Marietta [facility] Hospital12-20-2024 History of Present illness Narrative* [...] been reviewed prior to dispensing the medication. Greenhouse Grower Assessment Patient confirmed: Yes Med/dose confirmed: Yes Supplies needed: No supplies needed Missed doses: No Estimated days supply on hand: 1 Copay amount: 0 Payment confirmed: Yes Delivery method: FedEx Signature required: Waived on patient request Delivery address: [address] [place] [address] Delivery date: 05/16/24 Questions or concerns for [...] facility-administered medications on file prior to visit. [facility] SPECIALTY CLINICAL ASSESSMENT - INFLAMMATORY [...] longer tolerated. Luna Emanuel documented in this encounterMemorial Health [facility]12-20-2024 NoteC[facility]12-[facility] Nurse Note* Radha Schofield MA - 04/26/2024 9:32 AM EST Patient Identification confirmed: yes. Injection given and documented on JUL per provider order. Radha Schofield MA [facility]12-04-2024 Nurse Note* Radha Schofield MA - 04/26/2024 9:32 AM EST Patient Identification confirmed: yes. Injection given and documented on MAR per provider order. Radha Schofield MA documented in this encounterMemorial Health System Marietta [facility]11-22-2024 Telephone encounter Note * Telephone Encounter - Gay Barnett - 04/14/2024 12:11 PM EST Patient coming in for a sibo breath test on Wednesday and has been on keflex for 3 days and needs to be on for ten so she will need to reschedule [facility]11-22-2024 Miscellaneous Notes* Telephone Encounter - Gay Barnett - 04/14/2024 12:11 PM EST Patient coming in for a sibo breath test on Wednesday and has been on keflex for 3 days and needs to be on for ten so she will need to reschedule documented in this encounterMemorial Health System [facility]11-19-2024 [facility]11-18-2024 Miscellaneous Notes* Telephone Encounter - Sherrie [...] Enma Hamm RN * Telephone Encounter - nEma Hamm RN - 04/10/2024 12:54 PM EST [...] Please advise. Sherrie Cortes documented in this encounterMemorial Health System [facility]11-18-2024 Telephone encounter Note * Telephone Encounter - Sherrie Cortes - 04/10/2024 2:12 PM EST Patient requested this appointment be rescheduled for the end of April. She has been scheduled for 05/19, she is all set. Thank you! Sherrie Cortes [facility]11-18-2024 Telephone encounter Note* Telephone Encounter - Shantel Arce RPh - 04/10/2024 2:07 PM EST SUBQ products (eg, 20% [Cuvitru, Hizentra, Xembify]) or IM products (eg, 16% [GamaSTAN]) intravenously. It would depend upon insurance coverage and would be done as a retail prescription at designated insurance specialty pharmacy. Elpidio Arce, PharmD, BCOP [facility] Work Phone: [phone]) 729-924111-18-2024 Telephone encounter Note* Telephone Encounter - Enma [...] appt per pt request Enma Hamm RN [facility]11-18-2024 Telephone encounter Note* Telephone Encounter - Enma Hamm RN - 04/10/2024 12:54 PM EST Called to discuss with pt. She was researching online and found SCIG a weekly subq injection to give herself that is less dose, and has less side effects. Pharmacy/Mason: please advise Enma Hamm RN [facility]11-18-2024 Telephone encounter Note* Telephone Encounter - Vera Najera MD - 04/10/2024 12:26 PM EST Really sorry - I don't recall the home infusion of IVIG - I think it is safer to give it to her in-house as IV so we can monitor infusion reactions. Sorry if I created a misunderstanding. [facility]11-18-2024 History of Present illness Narrative* Gordo Barfield [...] Maternal Grandmother Clelaura Rheum arthritis Maternal Grandmother Lisandro Active Ambulatory Problems Diagnosis Date Noted Autoimmune disease ([facility]) 06/01/2023 Fibromyalgia [...] Tobacco use disorder 07/06/2023 Cytomegalovirus infection (HCC) ([facility]) 07/06/2023 Depression, recurrent ([facility]) 06/09/2023 Discoid lupus erythematosus ([facility]) 02/14/2022 Disturbance of skin sensation 07/06/2023 Elevated sed rate 03/05/2021 High total serum IgM 03/05/2021 Enthesopathy of hip region 07/06/2023 Essential hypertension ([facility]) 06/09/2023 Excessive and frequent menstruation with irregular cycle 09/24/2022 Family history of Crohn's disease 03/05/2021 Hair loss 03/05/2021 Hyperlipidemia ([facility]) 05/31/2014 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 02/04/2023 Long-term use of high-risk medication 06/15/2022 Long-term use of Plaquenil 03/05/2021 LPRD (laryngopharyngeal reflux disease) 07/06/2023 Megaloblastic anemia due to vitamin B12 deficiency 03/04/2022 Myalgia 07/06/2023 Obesity, Class III, BMI 40-49.9 (morbid obesity) ([facility]) 09/07/2022 Obstructive sleep apnea syndrome 05/20/2022 Oral lesion 07/06/2023 Pain, hip 07/06/2023 Rash and nonspecific skin eruption 03/05/2021 Steroid-induced osteoporosis ([facility]) 02/04/2023 Somnolence, daytime 05/20/2022 Secondary osteoarthritis of multiple sites 03/05/2021 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 02/04/2023 Swelling of lymph nodes 03/05/2021 Vitamin D deficiency 03/06/2021 Vitamin B12 deficiency 05/31/2014 Pure hypercholesterolemia, unspecified ([facility]) 08/10/2023 Hoarse 08/10/2023 Thyroid nodule ([facility]) 08/10/2023 Shortness of breath 07/13/2023 Paroxysmal supraventricular tachycardia ([facility]) 07/13/2023 PAC [...] of removal of cyst 2012 HTN (hypertension) ([facility]) Hx of [...] AREA NEEDED ergocalciferol (Vitamin D2) 1.25 MG (40646 UT) capsule Take 50,000 Units by mouth [...] referred from the [facility] documented in this encounterBarnes-Jewish West County [id number] Telephone encounter Note* Telephone Encounter - Sherrie [...] if Triage was involved? Please advise. Sherrie Semon [facility]11-15-2024 NoteCleveland Clinic [facility]11-15-2024 History of Present illness Narrative* Deisy Jaime LSW - 04/07/2024 9:30 AM EST Patient's name appears on the [facility] First Time Treatment List for a non- oncology treatment. No psychosocial assessment is indicated. BILL Rosenberg Goals of Care Advance Directives are not on file SIGNATURE: JUSTICE Rosenberg PATIENT NAME: Ariadna Haley DATE: April 07, 2024 TIME: 9:31 AM PAGER/CONTACT #: documented in this encounterMemorial Health System Marietta [facility] Hospital11-14-2024 Evaluation + Plan note* Assessment [...] her Raynaud's. All her questions were answered. [facility]11-14-2024 Miscellaneous Notes* Assessment & Plan Note [...] her questions were answered. documented in this encounterOur Lady of Mercy Hospital11-14-2024 History of Present illness Narrative* Hayden [...] Interpersonal Safety: Unknown (07/15/2023) Received from [facility] Safety & Environment Fear of Current [...] Assessment and Plan: Problem List Rheumatoid arthritis [place] Relevant Medications ibuprofen (ADVIL,MOTRIN) 200 mg tablet predniSONE (STERAPRED DS) 10 mg tablet pack Systemic lupus erythematosus ([facility] - Primary Relevant Medications ibuprofen (ADVIL,MOTRIN) 200 [...] orders for this visit: Systemic lupus erythematosus ([facility] - Vas art doppler lwr bilat mult lev/PVR; Future Cold extremities - [facility] - [place], [place] - Vas art doppler lwr bilat mult lev/PVR; Future Pain of lower extremity, unspecified laterality - [facility] - [place], [place] - Vas art doppler lwr bilat [...] you for your understanding. documented in this encounterOur Lady of Mercy Hospital11-14-2024 Instructions* Patient Instructions* Hayden Arciniega MD - 04/06/2024 9:40 AM EST Are You Ready To Kick The Habit? Free Tobacco Cessation Resources [facility] Tobacco Treatment [facility] Services [facility] Tobacco Treatment [facility] provide all employees with free tobacco cessation services that include: Counseling to understand nicotine addiction Education about medications that can help you successfully quit Assistance with developing a plan to quit Call to set up an individual appointment or find out when group classes will be held: [facility]: [phone] [facility]: [phone] [facility]: [phone] [facility]: [phone] Quit Smoking Action Plan and Resources [facility] offers an eight-week, online smoking cessation plan to all [facility] employees, regardless of whether [place] is your medical insurance provider. Go to www.LifeWave.org/employeewellness and click the Health Risk Assessment and Resources link to get started. In the TherapeuticsMD menu, click Action Plans instead of Health Risk Assessment to access the Quit Smoking Action Plan. Additional smoking cessation resources are also available to all [facility] employees on the Drmpc0Zxjfea web page at www.[employer]/quitsmoking. [place] Tobacco Cessation Program If [place] is your medical insurance provider, there are more free resources available to you, including: No copays or deductibles on local tobacco cessation counseling services to help you quit Prescription assistance for tobacco cessation medications to help you quit For details about the tobacco cessation program available to [place] members, go to www.turntable.fm.Medikly (Search: Tobacco Cessation Program). [place] Tobacco Quit Line 8-366-XPDU-NOW ( ) is a toll-free, telephonic service that helps [place] residents quit smoking and using tobacco. It is staffed by experts who tailor a quit plan for you and provide you with advice. [place] Tobacco Quit Line 2-593-FFPV-NOW ( ) is a toll-free, telephonic service [...] and resources to help you quit tobacco: [place] [employer]--www.cancer.org/healthy/stayawayfromtobacco [place] Heart Association--www.heart.org (Search: Quit Smoking) Centers for Disease Control and Prevention--www.cdc.gov/tobacco [place] Lung Association--www.lungusa.org documented in this encounterOur Lady of Mercy Hospital11-11-2024 Telephone encounter Note* Telephone Encounter - Marky Mike DO - 04/03/2024 9:36 AM EST Changed terbinafine to itraconazole at pt request. [facility] [id number] Miscellaneous Notes* Telephone Encounter - Marky Mike DO - 04/03/2024 9:36 AM EST Changed terbinafine to itraconazole at pt request. documented in this encounterBarnes-Jewish West County HospitalBhpejtofdx06-92-9985 Telephone encounter Note* Telephone Encounter - Lynne Ni MD - 04/02/2024 2:36 PM EST Please Call patient if MyChart note not read to review results/released to My Chart if tests completed at [facility]: Mildly high normal wbc, glucose, one [...] above. Please process accordingly. Lynne Ni MD [facility]11-10-2024 Miscellaneous Notes* Telephone Encounter - Lynne Ni [...] accordingly. Lynne Ni MD documented in this encounterMemorial Health System [facility] Hospital11-10-2024 History of Present illness Narrative* [...] with her immunosuppressive therapy. documented in this encounterBarnes-Jewish West County [id number] Instructions* Patient Instructions* Vera Najera MD - 04/01/2024 4:28 PM EST Obtain body fluid culture from [facility]. B12 shot today and every 4 weeks. Continue Folic acid. Frequent infections plan IVIG for hypogammaglobulinemia Start when approved. RTC 3 months repeat labs same day. IVIG same day. documented in this encounterMemorial Health System Marietta [facility] Hospital11-08-2024 NoteCleveland Clinic [facility]11-08-2024 History of Present illness Narrative* Ashly Castillo - 03/31/2024 12:29 PM EST CMN RECEIVED BY [employer] VIA FAX, COMPLETED, AND PLACED IN PROVIDER MAILBOX FOR SIGNATURE Ashly Castillo [employer] 03/31/2024 [employer] SENDING CMN: JOSH SIGNED AND DATED CMN, FAXED TO [employer] & CONFIRMATION PAGE RECEIVED: 04/11/2024 documented in this encounterMemorial Health System Marietta [facility] Hospital11-07-2024 Telephone encounter Note * Telephone Encounter - Mae Elaine - 03/30/2024 8:01 AM EST Pt is scheduled and instructions were sent thru my chart. [facility]11-07-2024 Miscellaneous Notes* Telephone Encounter [...] note were not included. documented in this encounterMemorial Health System Marietta [facility] Hospital11-06-2024 Telephone encounter Note * Telephone Encounter - Mae Elaine - 03/29/2024 9:02 AM EST Im for pt- saved time on 04/18 7:45 Also sent mychart msg. dm [facility]11-04-2024 NoteCleveland Clinic [facility]11-04-2024 History of Present illness Narrative* Vera Najera MD - 03/27/2024 3:03 PM EST Images from the original note were not included. NAME: Tera Ariadna [facility] NO.: [id number] DATE OF SERVICE: March 27, 2024 (Marquis) Some elements in this clinic note that are critical to medical decision making have been carefully reviewed and included from a prior clinic note dated: December 27, 2023 (Liz) Referring Provider: Dr. Manuel Ferris Additional Clinicians involved in Ariadnasusan Haley's care: VIRTUAL VISIT PROGRESS NOTE This is a virtual visit using [employer] Video Call. It required patient- provider interaction for the medical decision making as documented below. I have communicated my name and active licensure. The patient's identity and physical location wereverified at the time of this visit. Either the patient or their legal automobile sales representative has been informed of the [...] noted. PLAN: Obtain body fluid culture from [facility]. B12 shot today and every 4 [...] injections. Shefollows with multiple doctors including and head usher, house carpenter helper, production leader and PCP. She has been told they [...] ECOG PERFORMANCE STATUS: 0 PHYSICAL EXAMINATION: Vitals: [facility] 05/18/2022 There is no height or [...] CPE Hematology and Oncology Services Provided at: [place], [place] CC: Manuel Ferris MD [id number] [id number] documented in this encounterMemorial Health System Marietta [facility] Hospital10-31-2024 History of Present illness Narrative* [...] Ambulatory Problems Diagnosis Date Noted Autoimmune disease ([facility]) 06/01/2023 Fibromyalgia [...] Tobacco use disorder 07/06/2023 Cytomegalovirus infection (HCC) ([facility]) 07/06/2023 Depression, recurrent ([facility]) 06/09/2023 Discoid lupus erythematosus ([facility]) 02/14/2022 Disturbance of skin sensation 07/06/2023 Elevated sed rate 03/05/2021 High total serum IgM 03/05/2021 Enthesopathy of hip region 07/06/2023 Essential hypertension ([facility]) 06/09/2023 Excessive and frequent menstruation with irregular cycle 09/24/2022 Family history of Crohn's disease 03/05/2021 Hair loss 03/05/2021 Hyperlipidemia ([facility]) 05/31/2014 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 02/04/2023 Long-term use of high-risk medication 06/15/2022 Long-term use of Plaquenil 03/05/2021 LPRD (laryngopharyngeal reflux disease) 07/06/2023 Megaloblastic anemia due to vitamin B12 deficiency 03/04/2022 Myalgia 07/06/2023 Obesity, Class III, BMI 40-49.9 (morbid obesity) ([facility]) 09/07/2022 Obstructive sleep apnea syndrome 05/20/2022 Oral lesion 07/06/2023 Pain, hip 07/06/2023 Rash and nonspecific skin eruption 03/05/2021 Steroid-induced osteoporosis ([facility]) 02/04/2023 Somnolence, daytime 05/20/2022 Secondary osteoarthritis of multiple sites 03/05/2021 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 02/04/2023 Swelling of lymph nodes 03/05/2021 Vitamin D deficiency 03/06/2021 Vitamin B12 deficiency 05/31/2014 Pure hypercholesterolemia, unspecified ([facility]) 08/10/2023 Hoarse 08/10/2023 Thyroid nodule ([facility]) 08/10/2023 Shortness of breath 07/13/2023 Paroxysmal supraventricular tachycardia ([facility]) 07/13/2023 PAC [...] of removal of cyst 2012 HTN (hypertension) ([facility]) Hx of [...] of cyst 2012 tailbone x2 HTN (hypertension) ([facility]) Hx of abnormal cervical Pap smear Hyperlipidemia ([facility]) Insulin resistance [...] behalf of: KELVIN Cabrera documented in this encounterBarnes-Jewish West County [id number] Nurse Note* Stacy Gutiérrez MA - 03/23/2024 10:16 AM EDT Patient Identification confirmed: yes. Injection given and documented on MAR per provider order. Stacy Gutiérrez MA [facility]10-31-2024 Nurse Note* Stacy Gutiérrez MA - 03/23/2024 10:16 AM EDT Patient Identification confirmed: yes. Injection given and documented on MAR per provider order. Stacy Gutiérrez MA documented in this encounterMemorial Health System Marietta [facility] Hospital10-28-2024 Telephone encounter Note * Telephone Encounter - Mae Elaine - 03/20/2024 12:37 PM EDT Images from the original note were not included. [facility]10-26-2024 History of Present illness [...] visit. Either the patient or their legal automobile sales representative has been informed of the [...] measures, may consider osteoporosis treatment if on alf steroids/abnormal bmd, take vitamin D script once [...] neurology/on metoprolol for POTs, avoid aggravating triggers, alf pain recommendations per primary care provider/pain clinic/patient [...] measures, may consider osteoporosis treatment if on alf steroids/abnormal bmd, take vitamin D script if [...] metoprolol for POTs, avoid aggravating triggers, termite technician pain recommendations per primary care provider/pain clinic/patient [...] neurology/on metoprolol for POTs, avoid aggravating triggers, alf pain recommendations per primary care provider/pain clinic/patient [...] 4-8/10. Couple hrs AM stiffness. COVID vaccine [employer] 09/28/20, 10/19/20, 05/26/21. Feels safe at home. [...] pain: yes H/o precedent/frequent infection(s): as above Enthesopathy/Jefferson's/heel/plantar tenderness: hands random painful/tingling Skin thickening, psoriasis, [...] COVID-19 original vaccine, age 12+ yr, monovalent ([employer] - PURPLE TOP) 09/28/2020 10/19/2020 05/26/2021 COVID-19 vaccine, age 12+ yr ([employer] COMIRNATY) 02/23/2023 COVID-19 vaccine, age 12+ yr, bivalent ([employer]) 02/08/2022 Pneumovax no Flu shot no Tetanus [...] (33);NL cbc, cmp, negative hla b27; Outside [place] 06/2021 low vitamin D 16, vitamin b12-307;high [...] other organ involvement (HCC) (primary encounter diagnosis) M79.7 Fibromyalgia R76.8 CHRISTIAN positive Q79.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 Reports pain -10/31. Has hips/back stiffness minimal AM stiffness. Feels [...] may consider osteoporosis treatment if on termite technician steroids/abnormal bmd, take vitamin D script once [...] neurology/on metoprolol for POTs, avoid aggravating triggers, alf pain recommendations per primary care provider/pain clinic/patient [...] (200mg) daily with a meal Please see director mobile media solutions every 6-12months while on Hydroxychloroquine. Start azathioprine [...] touching your toes, sit-ups, using row machine alf pain recommendations per primary care provider/pain clinic [...] video & audio (virtual) or phone or [id number] patient care, completing clinical documentation, obtaining and/or [...] Workers' Compensation? No Do you need an vegetable farm manager? No [facility] MYCHART ZOOM MESSAGE Question 03/16/2024 7:44 [...] of Right Forearm or Lower Left Leg. [facility] PROMIS 10 ADULT SHORT FORM V1.0 GLOBAL [...] my health Strongly Agree documented in this encounterMemorial Health System [facility] Hospital10-26-2024 NoteC[facility] Clinic [facility]10-26-2024 Instructions* Patient Instructions* Lynne Ni MD [...] (200mg) daily with a meal Please see director mobile media solutions every 6-12months while on Hydroxychloroquine. azathioprine daily [...] touching your toes, sit-ups, using row machine alf pain recommendations per primary care provider/pain clinic [...] your usual activities immediately. documented in this encounterMemorial Health System Marietta [facility] Hospital10-25-2024 Telephone encounter Note * Telephone [...] above. Please process accordingly. Lynne Ni MD [facility]10-25-2024 Miscellaneous Notes* Telephone Encounter [...] VIDEO SPEC EST 03/18/2024 9:00 AM [facility] REJ Last Ophthalmology Check for Plaquenil [...] Elevated sed rate VITAMIN B12 BLOOD [SQB12] 1/ Every 3 months 06/02/24 06/03/23 02/21/24 Auth. provider: Vera Najera MD Assoc. diagnoses: Megaloblastic anemia due to vitamin B12 deficiency, Elevated sed rate FOLATE SERUM [SQSERFOL] 1/ Every 3 months 06/02/24 06/03/23 02/21/24 Auth. provider: Vera Najera MD Assoc. diagnoses: Megaloblastic anemia due to vitamin B12 deficiency, Elevated sed rate SED RATE WESTERGREN [SQWSR] 1 Every 3 months 06/09/24 06/10/23 02/21/24 Auth. provider: Vera Najera MD Assoc. diagnoses: Elevated sed rate Open Future (Single Instance) Lab Orders Expected Expires Ordered COMPREHENSIVE METABOLIC PANEL [SQCMP] 03/20/24 06/19/2412/26/24 Auth. provider: Neda Hill PA-C Assoc. diagnoses: [...] Assoc. diagnoses: Pseudomonas infection documented in this encounterMemorial Health System [facility] Hospital10-25-2024 Telephone encounter Note * Telephone [...] VIDEO SPEC EST 03/18/2024 9:00 AM [facility] REJ Last Ophthalmology Check for Plaquenil [...] METABOLIC PANEL [SQCMP] 05/28 Every 3 months 01/03/1706/03/23 02/21/24 Auth. provider: Vera Najera MD Assoc. [...] Elevated sed rate SED RATE WESTERGREN [SQWSR] 4 Every 3 months 06/09/24 06/10/23 02/21/24 Auth. [...] Alhaji Head DO Assoc. diagnoses: Pseudomonas infection [facility]10-24-2024 History of Present illness [...] Ambulatory Problems Diagnosis Date Noted Autoimmune disease ([facility]) 06/01/2023 Fibromyalgia [...] 03/05/2021 Hair loss 03/05/2021 Hyperlipidemia (CMS/HCC) 05/31/2014 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 current use of systemic [...] nursing note reviewed. Exam conducted with a processing assistant present. Vitals: Estimated body mass index is [...] Disease with Dr. Kelsey and [facility]. Patient voiced that Dr. Kelsey recommended surgery, but patient feels that maybe excessive. Specialist at [facility] suggested monitoring. Patient has had mammogram. Patient does not put anything on her breast.Ruled out Mondor's Breast concerns. Discussed Eureka Oil at night and Vitamin E lotion. Patient voiced that her breast feel brambila and heavier. Discussed growth of breast and proper support. Breastare not hot nor warm to the touch. Patient to obtain bilateral breast ultrasound. Patient to followup with routine annual appointment and as needed. Documented by Alicia Christine LPN on behalf of: Luan Valdivia DO documented in this encounterBarnes-Jewish West County [id number] NoteCleveland Clinic [facility]10-[facility] Chief Complaint: New patient here to establish care. Ref from Gay Enciso CNP for hypertension. Former [facility] cardiology patient. Had echo a few weeks ago at [facility]. Says her BP is very low [...] past several months. She has seen 2-3 director of graduate admissions in the past. She has undergone a [...] on any stimulants including caffeinated beverages, alcohol, gikb-uub-otnrmem Sudafed etc. If her symptoms of palpitations persist, particular if she has lightheadedness or dizziness, head upright tilt table test may be reasonable to evaluate for possible dysautonomia's I discussed the side effects and risks of long-term steroid therapy and recommended she discuss with her house carpenter helper weaning off soon as possible Given her morbid obesity, her current symptoms and comorbidities are likely related to excessive weight: I encouraged physical activity, attempts to lose weigh (more content not included)...[facility] 03-07-2024 NoteCleveland Clinic Mercy Hospital10-15-2024 History of Present illness Narrative* Lee Friedman - 03/07/2024 8:35 AM EDT CMN RECEIVED BY [employer] VIA FAX, COMPLETED, AND PLACED IN PROVIDER MAILBOX FOR SIGNATURE Lee Friedman Coordinator III 03.07.2024 [employer] SENDING CMN: Josh SIGNED AND DATED CMN, FAXED TO DME & CONFIRMATION PAGE RECEIVED: 03.07.2024 documented in this encounterMemorial Health [facility]10-01-2024 Telephone encounter Note * Telephone [...] terrified to drive that far to [facility] [place].' Further reviewed the reasoning behind the visit needing to be in-person and stated that I would have our patient scheduler reach out if she is willingto accept an in-person appt. PT requested that I review with our clinical team if this can be a VV before she schedules. I let her know I will do so and be in touch. She had no further questions at this time. Luda Vargas Genetic Counseling Airline Pilot Flight Instructor Additional: see FYIs for documentation of scheduling and cancellation with genetics in 2021 [facility]10-01-2024 Miscellaneous Notes* Telephone Encounter [...] 'too terrified to drive that far to [facility].' Further reviewed the reasoning behind the visit needing to be in-person and stated that I would have our patient scheduler reach out if she is willingto accept an in-person appt. PT requested that I review with our clinical team if this can be a VV before she schedules. I let her know I will do so and be in touch. She had no further questions at this time. Luda Vargas Genetic Counseling Airline Pilot Flight Instructor Additional: see FYIs for documentation of scheduling and cancellation with genetics in 2021 documented in this encounterMemorial Health [facility]09-30-2024 Nurse Note* Kenzie Shannon MA - 02/21/2024 11:13 AM EDT Patient Identification confirmed: yes. Injection given and documented on JUL per provider order. Kenzie Shannon MA [facility]09-30-2024 Nurse Note* Kenzie Shannon MA - 02/21/2024 11:13 AM EDT Patient Identification confirmed: yes. Injection given and documented on JUL per provider order. Kenzie Shannon MA documented in this encounterMemorial Health System [facility]09-27-2024 Telephone encounter Note * Telephone Encounter - Sherrie Jimenes - 02/18/2024 1:26 PM EDT Patient is calling the [facility] office requesting Dr. Ni to place a referral to genetics. Please advise. [facility]09-27-2024 Miscellaneous Notes* Telephone Encounter - Sherrie Jimenes - 02/18/2024 1:26 PM EDT Patient is calling the [facility] office requesting Dr. Ni to place a referral to genetics. Please advise. documented in this encounterMemorial Health System [facility]09-24-2024 Telephone encounter Note * Telephone Encounter - Hansa Javed LPN - 02/15/2024 9:49 AM EDT [facility], OFFICE NOTES WITH CONFIRMATON NOTED. [facility]09-24-2024 Miscellaneous Notes* Telephone Encounter - Hansa Javed LPN - 02/15/2024 9:49 AM EDT PAP ORDER FAXED TO [facility] WITH DEMOGRAPHICS, OFFICE NOTES WITH CONFIRMATON NOTED. documented in this encounterMemorial Health System [facility]09-23-2024 History of Present illness Narrative* Elton (Maintenance Worker House Trailer)Luda - 02/14/2024 2:32 PM EDT [facility] [...] been reviewed prior to dispensing the medication. Greenhouse Grower Assessment Patient confirmed: Yes Med/dose confirmed: Yes Missed doses: No Estimated days supply on hand: 1 Next cycle/dose due: 02/17/24 Copay amount: 0 Payment confirmed: Yes Delivery method: FedEx Signature required: Waived on patient request Delivery address: [address] [place] [address]. [place], [place] Delivery date: 02/17/24 Questions or concerns [...] facility-administered medications on file prior to visit. [facility] RX SPECIALTY CLINICAL ASSESSMENT - INFLAMMATORY [...] efficacy and/or no longer tolerated. Luda Vale [facility] [phone] documented in this encounterMemorial Health System [facility]09-23-2024 History of Present illness Narrative* Elton EpsteinElixserveLuda Benz - 02/14/2024 2:26 PM EDT Benefits investigation was conducted, indicating that a re-authorization is required for [employer]. PA was initiated and pending review. Plan Name: Keesha ReevesMyMeds Balderrama: [id number] [facility] [phone] documented in this encounterMemorial Health System [facility] Hospital09-23-2024 Instructions* Patient Instructions* Lexus Heck [...] treatment, there are resources available at the [facility] such as a nutrition consultation or referral to weight management programs at our [facility] [place]. Please let us know if we can [...] and out of pocket expenses. DME: Josh [phone] - Remember to clean your mask and equipment regularly, as directed. - Avoid use of ozone batch unloader, SoClean devices, or UV cleaning devices - [...] the central scheduling system for the [facility] [place] at [phone]. [facility] now offers direct scheduling for patients to schedule appointments. Virtual visits are also available. Call the office at [phone], option #5 for questions. documented in this encounterMemorial Health System [facility]09-23-2024 History of Present illness Narrative* Lexus Heck APRN.CNP - 02/14/2024 8:00 AM EDT Images from the original note were not included. [facility] Virtual Visit Follow up/ Established patient visit Date of last visit : 07/27/2022 I have communicated my name and active licensure. The patient's identity and physical location wereverified at the time of this visit. Either the patient or their legal automobile sales representative has been informed of the [...] Return Visit in 6 months. Lexus Heck APRN.PRINTING GRAY CLOTH TENDER Interval history : Here for follow up for sleep apnea management. SLEEP APNEA Sleep apnea type : JOSE RAFAEL Most Recent Apnea-Hypopnea Index (AHI): 5.3 (HSAT scored 4 %) Treatment : PAP therapy DME: Josh [place] fax: [phone] DME ph: [phone] PAP History: Current PAP settin-15 cm H2O. [...] are sorted in reverse-chronological order 04/12/2022 07/23/2022 [place] Sleepiness Scale Score 4 (No clinically significant [...] - Follow up 12 months. Lexus Heck APRN.PRINTING GRAY CLOTH TENDER documented in this encounterCleveland [id number] History of Present illness Narrative* Zita Cuellar, BATTERY CHARGER TESTER - 02/09/2024 8:00 AM EDT Images from the original note were not included. CHIEF COMPLAINT REASON FOR VISIT : leg pain HPI: Ariadna Haley is a 43 y.o. female who presents for [facility]. She is at home. She [...] Chronic laryngopharyngitis COVID-19 vaccine administered x 2 ([employer]) Difficulty walking Fatigue Fibromyalgia, primary GERD (gastroesophageal [...] Depression: Not at risk (12/27/2023) Received from [facility] PHQ-2 PHQ-2 score: 1 [...] patient, and coordinating care. documented in this encounterBarnes-Jewish West County [id number] NoteHNO ID: [id number] Author: ALHAJI HEAD, DO Service: ? Author Type: Physician Type: Progress Notes Filed: 01/27/2024 16:54 Note Text: VIRTUAL VISIT PROGRESS NOTE This is a virtual visit using [employer] Video Visit. It required patient-provider interaction for the medical decision making as documented below. I have communicated my name and active licensure. The patient's identity and physical location were verified at the time of this visit. Either the patient or their legal automobile sales representative has been informed of the [...] of green drainage. She saw her OB/ slot operations manager. This was thought to be secondary to [...] SOB/WHEEZING, and NO DYSPHAG (more content not included)...[facility]09-05-2024 History of Present illness Narrative* Alhaji Head DO - 01/27/2024 10:10 AM EDT Images from the original note were not included. VIRTUAL VISIT PROGRESS NOTE This is a virtual visit using [employer] Zoom Video Visit. It required patient- provider interaction for the medical decision making as documented below. I have communicated my name and active licensure. The patient's identity and physical location wereverified at the time of this visit. Either the patient or their legal automobile sales representative has been informed of the [...] of green drainage. She saw her OB/ slot operations manager. This was thought to be secondary to [...] thrush Alhaji Head DO documented in this encounterMemorial Health [facility]09-03-2024 Nurse Note* Margret Cuenca MA - 01/25/2024 11:30 AM EDT Patient Identification confirmed: yes. Injection given and documented on MAR per provider order. Margret Cuenca MA [facility]09-03-2024 Nurse Note* Margret Cuenca MA - 01/25/2024 11:30 AM EDT Patient Identification confirmed: yes. Injection given and documented on MAR per provider order. Margret Cuenca MA documented in this encounterMemorial Health System [facility]08-27-2024 History of Present illness Narrative* [...] outcomes. Aidee Quintanilla PharmD Clinical Pharmacist, [employer] [facility] ; Pool: [facility] Pool #: [id number] Greenhouse Grower Assessment Patient confirmed: Yes Med/dose confirmed: Yes Supplies needed: No supplies needed Missed doses: No Estimated days supply on hand: (At least 1 dose) Next cycle/dose due: 01/20/24 Copay amount: 0 Payment confirmed: Yes Delivery method: FedEx Signature required: Waived on patient request Delivery address: [address] [place] [address] Delivery date: 01/21/24 Questions or concerns for [...] facility-administered medications on file prior to visit. [facility] RX SPECIALTY CLINICAL ASSESSMENT - INFLAMMATORY [...] no longer tolerated. Arianne Mckinley CPhT, Inflammatory/Allergy [facility] [phone] documented in this encounterMemorial Health System [facility]08-21-2024 Telephone encounter Note * Telephone Encounter - Krista Braswell MA - 01/12/2024 10:45 AM EDT Pt has been notified via [employer]. [facility]08-21-2024 Miscellaneous Notes* Telephone Encounter - Krista Fonseca MA - 01/12/2024 10:45 AM EDT Pt has been notified via [employer]. * Telephone Encounter - Lynne Ni [...] Assoc. 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 Please process accordingly. Lynne Ni MD [facility]08-21-2024 Telephone encounter Note* Telephone [...] apnea syndrome IRON AND TIBC [SQIRON] 03/20/24 06/19/2412/26/24 Auth. provider: Neda Hill PA-C Assoc. diagnoses: [...] Lynne Ni MD Assoc. diagnoses: Screening-pulmonary TB [facility]08-08-2024 Telephone encounter Note* Telephone Encounter - Krista Braswell MA - 12/30/2023 1:34 PM EDT Spoke to pt aware of results and recommendations. [facility]08-08-2024 Miscellaneous Notes* Telephone Encounter [...] vitamin b12 every month documented in this encounterMemorial Health System [facility] Hospital08-08-2024 Telephone encounter Note * Telephone Encounter - Lynne Ni MD - 12/30/2023 12:31 PM EDT Please Call patient if MyChart note not read to review results/released to My Chart if tests completed at [facility]: One Borderline inflammatory test, wbc- will [...] likely reactive, continue vitamin b12 every month [facility]08-05-2024 Telephone encounter Note* Telephone Encounter - Enma Hamm RN - 12/27/2023 12:49 PM EDT Pt informed of MM message and denies any questions, needs or concerns at this time. Appointments verified. Enma Hamm RN [facility]08-05-2024 Miscellaneous Notes* Telephone Encounter - Enma Hamm RN - 12/27/2023 12:49 PM EDT Pt informed of MM message and denies any questions, needs or concerns at this time. Appointments verified. Enma Hamm RN * Telephone Encounter - Neda Hill PA-C - 12/27/2023 12:44 PM EDT Please call and inform the patient that I reviewed her [facility] records and there is no evidence of a blood clot and she does not need to be on blood thinners. Neda Hill PA-C documented in this encounterMemorial Health System [facility]08-05-2024 Telephone encounter Note * Telephone Encounter - Neda Hill PA-C - 12/27/2023 12:44 PM EDT Please call and inform the patient that I reviewed her [facility] records and there is no evidence of a blood clot and she does not need to be on blood thinners. Neda Hill PA-C [facility] Work Phone: [phone] Nurse Note* Margret Cuenca MA - 12/27/2023 11:44 AM EDT Patient Identification confirmed: yes. Injection given and documented on MAR per provider order. Margret Cuenca MA [facility]08-05-2024 Nurse Note* Margret Cuenca MA - 12/27/2023 11:44 AM EDT Patient Identification confirmed: yes. Injection given and documented on MAR per provider order. Margret Cuenca MA documented in this encounterMemorial Health System [facility]08-05-2024 History of Present illness Narrative* Neda Hill PA-C - 12/27/2023 11:30 AM EDT Images from the original note were not included. NAME: Aridana Haley [facility] NO.: [id number] DATE OF SERVICE: December 27, 2023 (Liz) [...] labs 1 week before. Request records from [facility] from PE/elevated d-dimer Frequent infections and [...] injections. Shefollows with multiple doctors including and head usher, house carpenter helper, production leader and PCP. She has been told they [...] date: Vitamin D deficiency PAST SURGICAL HISTORY 2012 and 2013: PAST SURGICAL HISTORY OF Comment: [...] which included preparing to see the patient, cygd-zg-blpu patient care, completing clinical documentation, obtaining and/or reviewing separately obtained history, performing a medically appropriate examination, counseling and educating the pat ient/family/caregiver, ordering medications, tests, or procedures, communicating with other HCPs (not separately reported), independently interpreting results (not separately reported), communicatingresults to the patient/family/caregiver, and care coordination (not separately reported). Neda Hill PA-C Hematology and Oncology Services Provided at: [place], [place] CC: Manuel Ferris MD [id number] [address] documented in this encounterMemorial Health System [facility]07-22-2024 History of Present illness Narrative* Elton (Maintenance Worker House Trailer)Luda - 12/13/2023 11:44 AM EDT [facility] [...] laboratory parameters, disease state markers and outcomes. Greenhouse Grower Assessment Patient confirmed: Yes Med/dose confirmed: Yes Missed doses: No Estimated days supply on hand: 1 Next cycle/dose due: 12/16/23 Copay amount: 0 Payment confirmed: Yes Delivery method: FedEx Signature required: Waived on patient request Delivery address: [address] [place] [address] [address] [place] Delivery date: 12/17/23 Questions or concerns for [...] facility-administered medications on file prior to visit. [facility] RX SPECIALTY CLINICAL ASSESSMENT - INFLAMMATORY CONDITIONS V6: Assessment to use: Refill [facility] VACCINE INFORMATION [facility] TREATMENT PLAN INFORMATION Luda Vale CPhT [facility] [phone] documented in this encounterMemorial Health System [facility] Hospital07-08-2024 Nurse Note* Stacy Gutiérrez MA - 11/29/2023 1:47 PM EDT Patient Identification confirmed: yes. Injection given and documented on MAR per provider order. Stacy Gutiérrez MA [facility]07-08-2024 Nurse Note* Stacy Gutiérrez MA - 11/29/2023 1:47 PM EDT Patient Identification confirmed: yes. Injection given and documented on MAR per provider order. Stacy Gutiérrez MA documented in this encounterMemorial Health System [facility] Hospital07-05-2024 Telephone encounter Note * Telephone Encounter - Katherin Schneider RN - 11/26/2023 11:34 AM EDT Please sign pended script Maryam Schneider RN [facility]07-05-2024 Miscellaneous Notes* Telephone Encounter - Katherin Schneider RN - 11/26/2023 11:34 AM EDT Please sign pended script Maryam Schneider RN documented in this encounterMemorial Health System [facility] Hospital06-24-2024 History of Present illness Narrative* Aidee Quintanilla RPh - 11/15/2023 1:00 PM EDT [facility] [...] laboratory parameters, disease state markers and outcomes. Greenhouse Grower Assessment Patient confirmed: Yes Med/dose confirmed: Yes Missed doses: No Estimated days supply on hand: 1 Next cycle/dose due: 11/18/23 Copay amount: 0 Payment confirmed: Yes Delivery method: FedEx Signature required: Waived on patient request Delivery address: [address] [place] [address] Rd. [place], [place] Delivery date: 11/17/23 Questions or concerns [...] facility-administered medications on file prior to visit. [facility] Visit Assessment [...] Yes Aidee Quintanilla PharmD Clinical Pharmacist, [employer] [facility] ; Pool: P [facility] Pool #: [id number] documented in this encounterMemorial Health System [facility]etta [facility] Hospital06-20-2024 Telephone encounter Note * Telephone [...] above. Please process accordingly. Lynne Ni MD [facility]06-20-2024 Miscellaneous Notes* Telephone Encounter [...] SERUM [SQSERFOL] 3/5 Every 3 months 06/02/24 06/03/2308/30/24 Auth. [...] High total serum IgM documented in this encounterMemorial Health System Marietta [facility] Hospital06-20-2024 Telephone encounter Note * Telephone [...] total serum IgM IRON AND TIBC [SQIRON] 0709/08/24 09/09/23 Auth. provider: Vera Najera MD Assoc. [...] [SQWSR] 12/02/23 03/02/24 09/09/23 Auth. provider: Vera Najear MD Assoc. diagnoses: Megaloblastic anemia due to vitamin B12 deficiency, High total serum IgM [facility]06-06-2024 Telephone encounter Note* Telephone Encounter - Karina Morales RN - 10/28/2023 1:33 PM EDT Pt read [employer] message. [facility]06-06-2024 Miscellaneous Notes* Telephone Encounter - Karina Morales RN - 10/28/2023 1:33 PM EDT Pt read [employer] message. * Telephone Encounter - Lynne Ni [...] soon! Warm regardsDr.Tsai :) documented in this encounterMemorial Health System [facility] Hospital06-06-2024 Telephone encounter Note * Telephone [...] you feel better soon! Dr.Tsai Harshal :) [place] [address]-05-2024 Nurse Note* Margret Cuenca MA - 10/27/2023 2:43 PM EDT Patient Identification confirmed: yes. Injection given and documented on MAR per provider order. Margret Cuenca MA [facility]06-05-2024 Nurse Note* Margret Cuenca MA - 10/27/2023 2:43 PM EDT Patient Identification confirmed: yes. Injection given and documented on MAR per provider order. Margret Cuenca MA documented in this encounterMemorial Health System [facility] Hospital05-14-2024 History of Present illness Narrative* [...] visit. Either the patient or their legal automobile sales representative has been informed of the [...] measures, may consider osteoporosis treatment if on alf steroids/abnormal bmd, take vitamin D script if [...] neurology/on metoprolol for POTs, avoid aggravating triggers, alf pain recommendations per primary care provider/pain clinic/patient [...] metoprolol for POTs, avoid aggravating triggers, termite technician pain recommendations per primary care provider/pain clinic/patient [...] Due for eye exam. Labs sent to [facility]/completed in 06/2021 (no results faxed to office, but patient pulled up results on her phone). Chronic current pain in neck, flank area, mid back, knees, legs, arms, all over pain. Better with lyrica 75mg 3times a day. Reports pain 4-8/10. Couple hrs AM stiffness. COVID vaccine [employer] 09/28/20, 10/19/20, 05/26/21. Feels safe at home. [...] COVID-19 original vaccine, age 12+ yr, monovalent ([employer] - PURPLE TOP) 09/28/2020 10/19/2020 05/26/2021 COVID-19 vaccine, age 12+ yr, 2022- season ([employer]) 02/23/2023 COVID-19 vaccine, age 12+ yr, bivalent ([employer]) 02/08/2022 Pneumovax no Flu shot no Tetanus [...] (33);NL cbc, cmp, negative hla b27; Outside [place] 06/2021 low vitamin D 16, vitamin b12-307;high [...] may consider osteoporosis treatment if on termite technician steroids/abnormal bmd, take vitamin D script once [...] metoprolol for POTs, avoid aggravating triggers, termite technician pain recommendations per primary care provider/pain clinic/patient [...] (200mg) daily with a meal Please see director mobile media solutions every 6-12months while on Hydroxychloroquine. Start azathioprine [...] your toes, sit-ups, using row machine termite technician pain recommendations per primary care provider/pain clinic [...] video & audio (virtual) or phone or xtjw-vw-zcyt patient care, completing clinical documentation, obtaining and/or [...] Workers' Compensation? No Do you need an vegetable farm manager? No [facility] MYCHART ZOOM MESSAGE Question 2023 11:04 [...] of Right Forearm or Lower Left Leg. [facility] [place] PROMIS 10 ADULT SHORT FORM V1.0 GLOBAL [...] 3 (WITHIN +/- 5) documented in this encounterMem[facility] Nurse Note* Renea Schneider MA - 09/30/2023 10:53 AM EDT Patient Identification confirmed: yes. Injection given and documented on JUL per provider order. Renea Schneider MA [facility]01[facility] Evaluation note* Author [facility] Authored September 22, 2023 2:55pm [...] symptoms [facility] Work Phone: 1(625) 545-626604-18-2024 Instructions* Patient Instructions* Vera Najera MD - 09/09/2023 4:47 PM EDT Follow up in 13 Weeks - labs 1 week before. B12 shot every 4 weeks. Continue Folic acid. documented in this encounterMemorial [facility]04-18-2024 History of Present illness Narrative* Vera Najera MD - 09/09/2023 4:30 PM EDT NAME: Ariadna Haley [facility] NO.: [id number] DATE OF SERVICE: September 09, 2023 (Marquis) Some elements in this clinic note that are critical to medical decision making have been carefully reviewed and included from a prior clinic note dated: June 10, 2023 (Marquis) Referring Provider: Dr. Manuel Ferris Additional Clinicians involved in Ariadna Haley's care: VIRTUAL VISIT PROGRESS NOTE This is a virtual visit using Oversee Link Trainer Video Call. It required patient- provider interaction for the medical decision making as documented below. I have communicated my name and active licensure. The patient's identity and physical location wereverified at the time of this visit. Either the patient or their legal automobile sales representative has been informed of the [...] injections. Shefollows with multiple doctors including and head usher, house carpenter helper, production leader and PCP. She has been told they [...] CPE Hematology and Oncology Services Provided at: [place], [place] CC: Manuel Ferris MD [address] [facility] [address] documented in this encounterMemorial Health [facility]04-15-2024 Miscellaneous Notes* Telephone Encounter - Maynor Bryson MA - 09/06/2023 7:21 AM EDT patient has viewed the [employer] message per [employer]. * Telephone Encounter - Lynne Ni MD - 09/04/2023 6:30 PM EDT Please Call patient if PinBridge note not read to review results/released to [...] accordingly. Lynne Ni MD documented in this [facility]04-09-2024 Nurse Note* Margret Cuenca MA - 08/31/2023 10:35 AM EDT Patient Identification confirmed: yes. Injection given and documented on MAR per provider order. Margret Cuenca MA documented in this [facility]04-01-2024 Nurse Note* Renea Schneider MA - 09/30/2023 10:53 AM EDT Patient Identification confirmed: yes. Injection given and documented on MAR per provider order. Renea Schneider MA documented in this [facility]03-14-2024 Nurse Note* Margret Cuenca - 08/05/2023 11:16 AM EDT Patient Identification confirmed: yes. Injection given and documented on MAR per provider order. Margret Cuenca documented in this [facility]02-20-2024 Nurse Note* Margret Cuenca - 07/13/2023 12:01 PM EST Patient Identification confirmed: yes. Injection given and documented on JUL per provider order. Margret Cuenca documented in this encounterMemorial Health [facility]02-20-2024 History of Present illness Narrative* [...] being cared for at the [facility] utilizing steroids, Plaquenil and injectable medic ation(Benlystal). The patient record indicating having had cardiac catheterization in [place] 3 years ago which was normal. I have the report available for my review. [facility] [...] treated by rheumatology at the [facility] on steroids, Plaquenil and monoclonal [...] , Rfl: ergocalciferol (Vitamin D-2) 1.25 MG (00463 UT) capsule, Take 1 capsule (50,000 Units) [...] Attestation By signing my name below, I, [email or web address] , Scribe attest that this documentation has [...] exam, discussion and plan. documented in this encounterSum[facility] Work Phone: 1(922) 293-748302-20-2024 Instructions* Patient Instructions* Lila Tejeda LPN - [...] time of your visit. documented in this encounterSum[facility] Work Phone: 1(608) 270-227202-13-2024 History of Present illness Narrative* Kade Richardson [...] , Rfl: ergocalciferol (Vitamin D2) 1.25 MG (47368 UT) capsule, Take 50,000 Units by mouth [...] Chronic laryngopharyngitis COVID-19 vaccine administered x 2 ([employer]) History of removal of cyst 2013 tailbone [...] reflexes: Stu's absent. Ankle clonus absent. Coordination Pvlpvz-sb-cfhv, rapid alternating movements and nxwm-dc-eexy normal bilaterally without dysmetria. Gait Normal casual, [...] Lyrica 100 mg TID. She is on pizojoxxht91 mg once daily. Increase prednisone 10 mg BID for 10 days. documented in this encounterBarnes-Jewish West County HospitalGszglcnngz18-51-2194 History of Present illness Narrative* Michelle Jasmine, MANA[facility] OF [facility] - 06/09/2023 8:30 AM EST Ariadna Haley is a 42 y.o. female that presents to the office today for new patient evaluation asself referral for palpitations and elevated heart rates. She has a PMH of HTN, HLD, tachycardia, anemia, JOSE RAFAEL with CPAP compliance, lupus, autonomic dysfunction, arthritis, chronic back pain. She has undergone cardiac workup in the past in [place] as noted below. She also states that she follows withNeurology for possible POTS syndrome. Admits to daily tobacco use, 1 pack of cigarettes per day. Denies vaping, ETOH, recreational drugs. Admits to drinking approximately 1 pot of coffee per day. Denies daily exercise. 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 Family history [...] Anemia, unspecified Anxiety Autonomic dysfunction Depression, recurrent ([facility]/HCC) Discoid lupus erythematosus Chronic bilateral low back [...] , Rfl: ergocalciferol (Vitamin D-2) 1.25 MG (84737 UT) capsule, Take 1 capsule (50,000 Units) [...] to prepare this document. documented in this [facility] Work Phone: 1(431) 584-261101-03-2024 Instructions* Patient Instructions* Christie Phan MD - 05/26/2023 5:43 PM EST Images from the original note were not included. https://Fanzy/tofu-bolognese/ https://nutritionstudies.org/vpt-bq-nntxwwldu-tkffcstp-fh-guznh-y-pzyot-utuq-randee jf-znkty-aabtqeweo/ https://www.CollabFinder.Medikly/blog/plantbasedkids https://Coupon Wallet/qoxku-qupmg-rkhh-for-kids/ https://Ebrun.com/yew-cu-cqathmqiff-lkoi-vvhh-fz-o-zyxhf-vxlsv-diet/ WHAT TO EAT? Breakfast: Overnight Oats Base ingredients: 1/3 cup rolled oats, 1/3 cup plain almond milk, 1tsp kyle seeds. Optional add-ins: cinnamon, flax seeds, honey or maple syrup, nut butter, chopped nuts. Toppings: Any fresh fruit chopped. Mix together and place in refrigerator. Can make 5 at a time for the whole week. Homemade fresh oatmeal. Can also make in the crockpot. Nicaraguan muffin/almond butter topped with fresh berries Nicaraguan muffin, cooked egg/egg white, tomato, thin slice malagasy cheese Fresh berries, hard boiled egg, whole wheat toast Plain yogurt topped with berries, unsalted nuts, drizzle of honey Whole grain toast/Nicaraguan muffin topped with mashed avocado and tomatoes Lunch: Dinner leftovers packed in Tupperware, side of fruit Salad mixture topped with a protein (chick breast/tuna/hard boiled egg/beans), dressing and side offruit Dinner - Refer to plate meeting/event planner pictures to help select foods and portion ratios of protein, vegetables/starches. Keep it simple and rotate your favorite meals. Sheet nix meals Soups Grilled protein/vegetables/side of starch (plate meeting/event planner picture) Stir can with protein, mixed vegetables, and riced cauliflower or portion controlled whole grain rice. Make your own bowls - Cymro/Mozambican/ theme [place] with Zoodles (spiralized vegetable noodles). Roasted vegetable wraps Alter traditional recipes to reflect HIGH QUALITY ingredients in the right QUANTITIES. Snacks - portion controlled: Raw veggies (can have with hummus, mashed avocado, salsa). Unsalted nuts Fruit (1 serving). (optional side of peanut butter) Air pop popcorn Isaban and low fat malagasy cheese rolled up String cheese Protein balls (mix rolled oats, nut butter, flax seeds, dash almond milk). Beverages: Water Coffee, Hot tea Unsweetened ice tea EATING OUT: Research menu online, include nutritional information. Make your order decision before getting to restaurant. Stick to recommended portions (plate meeting/event planner picture). Ask for substitutions or modifications. [...] baked potato, sprouted grain bread, chick peas https://www.Bebestore.com/article/2564115/zvlbssyznjgjs-xuqs-iior-for-beginners / https://www.Bebestore.com/category/4274/bjvxhkjjrftao-hzml-rtfbso/ https://www.Bebestore.Medikly/category/4300/myklyneeborrs-sjno-pzkh-plans/ My current favorite cookbooks are documented in this encounterMemorial Health [facility]01-03-2024 History of Present illness Narrative* Christie Phan MD - 05/26/2023 5:00 PM EST Images from the original note were not included. [facility] Follow-Up Appointment [...] the date of the service which included mrsh-zl-ktqw patient care, completing clinical documentation, performing a medically appropriate examination, counseling and educating the patient/family/caregiver, and ordering medications, tests, or procedures. Christie Phan MD, [place], [facility] Lifestyle Medicine Specialist documented in this encounterMemorial Health System [facility]12-04-2023 Miscellaneous Notes* Telephone Encounter - Renate Lawrence MA - 04/26/2023 5:26 PM EST Medication pending with new pharmacy information. documented in this [facility]12-04-2023 History of Present illness Narrative* Christie [...] the date of the service which included bhsc-ja-ixnq patient care, completing clinical documentation, performing a medically appropriate examination, counseling and educating the patient/family/caregiver, and ordering medications, tests, or procedures. I have communicated my name and active licensure. The patient's identity and physical location wereverified at the time of this visit. Either the patient or their legal automobile sales representative has been informed of the risks and benefits of -- and alternatives to -- treatment through a remote evaluation andconsents to proceed with the evaluation remotely. Christie Phan MD, [place], [facility] Lifestyle Medicine Specialist documented in this encounterMemorial Health [facility]12-04-2023 Nurse Note* Renate Lawrence MA - 04/26/2023 2:46 PM EST Spoke to Ariadna Haley, confirmed patient is registered on PinBridge and is prepared for their appointment. Confirmed the patient has updated medications, allergies, and questionnaires via PinBridge. Informed patient if there is an issue with the connection, provider will send the patient a secure link. If provider is running late, patient should remain connected to the visit. Patient verbalized understanding. documented in this encounterMemorial Health [facility]11-30-2023 Miscellaneous Notes* Telephone Encounter - Enma Hamm RN - 04/22/2023 3:48 PM EST Pt called for Iron results; possible need for transfusion. Pt aware no need for iron infusion at this time. Enma Hamm RN documented in this encounterMemorial Health [facility] Hospital11-24-2023 History of Present illness Narrative* Kenzie Shannon - 04/16/2023 10:55 AM EST Patient Identification confirmed: yes. Injection given and documented on JUL per provider order. Kenzie Shannon documented in this encounterMemorial Health [facility] Hospital10-27-2023 History of Present illness Narrative* Kenzie Shannon - 03/19/2023 11:06 AM EDT Patient Identification confirmed: yes. Injection given and documented on JUL per provider order. Kenzie Shannon documented in this [facility]10-24-2023 History of Present illness Narrative* Marija Ziegler - 03/16/2023 10:13 AM EDT CMN RECEIVED BY [facility] VIA FAX, COMPLETED, AND PLACED IN PROVIDER MAILBOX FOR SIGNATURE On 2022 By Marija Ziegler [employer] SENDING CMN: JOSH SIGNED AND DATED CMN, FAXED TO DME & CONFIRMATION PAGE RECEIVED: 03.24.23 documented in this encounterMemorial Health System Marietta [facility] Hospital10-19-2023 History of Present illness Narrative* [...] LPN In Department: RHEUMATOLOGY documented in this encounterMemorial Health System Marietta [facility] Hospital10-18-2023 Miscellaneous Notes* Telephone Encounter - Christie Phan MD - 03/10/2023 2:18 PM EDT Spoke with patient. We stopped her trulicity because of side effects. She only took the cymbalta for a week. She will restart and we will see how she is doing in 2 months. Have also ordered insulin labs to check for insulin resistance. documented in this encounterMemorial Health [facility]10-09-2023 Miscellaneous Notes* Telephone Encounter - Lynne Ni MD - 03/01/2023 3:27 PM EDT For chart: Eye exam 02/26/23 no ocular complication related to medication. * Telephone Encounter - Beatriz Sanchez LPN - 03/01/2023 2:38 PM EDT Received eye exam from [facility] on your desk for review. documented in this encounterMemorial Health System [facility] Hospital09-29-2023 Nurse Note* Radha Kebede MA - 02/19/2023 11:48 AM EDT Patient Identification confirmed: yes. Injection given and documented on JUL per provider order. Radha Schofield MA documented in this encounterMemorial Health System [facility] Hospital09-29-2023 Instructions* Patient Instructions* Vera Najera MD - 02/19/2023 11:40 AM EDT B12 shot today and every 4 weeks. Continue Folic acid. Follow up in 8 Weeks - labs 1 week before. documented in this encounterMemorial Health System [facility] Hospital09-29-2023 History of Present illness Narrative* Vera Najera MD - 02/19/2023 11:32 AM EDT Images from the original note were not included. AMBULATORY TELEPHONE VISIT Ariadna Haley has consented to this telephone encounter. Persons Present: Patient and myself Chief Complaint/Reason: Anemia; To review recent blood work. HPI: Total Time Spent: 21 minutes Rebekah Rojas APRN.PRINTING GRAY CLOTH TENDER NAME: lazarofrancisco javierAriadna CLINIC NO.: [id number] DATE OF SERVICE: February 19, 2023 (Marquis) Some elements in this clinic note that are critical to medical decision making have been carefully reviewed and included from a prior clinic note dated: December 17, 2022 (Bob) & October 22, 2022 (Marquis) Referring Provider: Dr. Manuel Ferirs Additional Clinicians involved in Ariadna Haley's care: [...] injections. Shefollows with multiple doctors including and head usher, house carpenter helper, production leader and PCP. She has been told they [...] which included preparing to see the patient, rkim-vq-vbaf patient care, completing clinical documentation, performing a medically appropriate examination, counseling and educating the patient/family/caregiver, ordering medications, tests, or p rocedures, and independently interpreting results (not separately reported). Vear Najera MD, CPE Hematology and Oncology Services Provided at: [place], [place] CC: Manuel Ferris MD [address] [address] documented in this encounterMemorial Health System [facility] Hospital09-26-2023 Miscellaneous Notes* Telephone Encounter - [...] RAYRAY INJECTION TEACHING 03/11/2023 7:30 AM [facility] NICKIE VIDEO SPEC EST 08/12/2023 9:00 AM [facility] N[facility] Last Ophthalmology Check for Plaquenil [...] diagnoses: Vitamin D deficiency documented in this encounterMemorial Health System [facility] Hospital09-18-2023 Miscellaneous Notes* Telephone Encounter - Mirela Carlos - 02/08/2023 11:12 AM EDT Spoke with patient Will get labs done when she does labs in Dec for Dre/Onc Mailed orders for DXA to pt so she can go to [facility] Pre cert Benlyst Scheduled Teaching visit [...] density (1st time) patient requests order for [place] Please schedule follow up office visit for [...] accordingly. Lynne Ni MD documented in this encounterMemorial Health [facility] Hospital09-14-2023 History of Present illness Narrative* Carlene Rendon - 02/04/2023 9:31 AM EDT [facility] received prescription(s) for Benlysta from Dr. Ni. Benefits investigation was conducted, indicating that a prior authorization is required by patients plan with [facility]. Encounter will be updated once prior authorization has been submitted by [facility]. Carlene Rendon CPhT [facility], Inflammatory P: [phone] F: [phone] documented in this encounterMemorial Health [facility]09-14-2023 History of Present illness Narrative* [...] visit. Either the patient or their legal automobile sales representative has been informed of the [...] neurology/on metoprolol for POTs, avoid aggravating triggers, alf pain recommendations per primary care provider/pain clinic/patient [...] Due for eye exam. Labs sent to [facility]/completed in 06/2021 (no results faxed to office, [...] dexamethasone Reports pain 2-7/10 No falls/fx/trauma/illness/oral sores/rash/hairloss/jaw pain/dysphagia/epistaxis/hemoptysis. No adverse effects [...] COVID-19 original vaccine, age 12+ yr, monovalent ([employer] - PURPLE TOP) 09/28/2020 10/19/2020 05/26/2021 COVID-19 vaccine, age 12+ yr, bivalent ([employer]) 02/08/2022 Pneumovax no Flu shot no Tetanus [...] (33);NL cbc, cmp, negative hla b27; Outside [place] 06/2021 low vitamin D 16, vitamin b12-307;high [...] pain LIMITATION of Motion of Joints: yes IMPRESSION/DIAGNOSIS:23 M32.19 Other systemic lupus erythematosus with other [...] rate M25.531, M25.532 Bilateral wrist pain Z79.52 penitentiary 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 M81.8, T38.0X5A [...] may consider osteoporosis treatment if on termite technician steroids/abnormal bmd, take vitamin D script if [...] metoprolol for POTs, avoid aggravating triggers, termite technician pain recommendations per primary care provider/pain clinic/patient [...] (200mg) daily with a meal Please see director mobile media solutions every 6-12months while on Hydroxychloroquine. Start azathioprine [...] touching your toes, sit-ups, using row machine alf pain recommendations per primary care provider/pain clinic [...] video & audio (virtual) or phone or hjkc-cj-aets patient care, completing clinical documentation, obtaining and/or [...] cc Gay Enciso CNP;Dr.Douglas Sai Ferris MD [facility] AMBULATORY VISIT INTAKE QUESTIONNAIRE Question 02/02/2023 10:32 [...] Workers' Compensation? No Do you need an vegetable farm manager? No [facility] MYCHART ZOOM MESSAGE Question 02/02/2023 10:32 [...] Yes Memory Loss: No Swollen Glands: Yes [facility] SLAQ QUESTIONNAIRE Question 02/02/2023 [...] help my provider understand my health Agree [facility] DOCUMENT/IMAGE UPLOAD Question 02/02/2023 [...] < or = 5) documented in this encounterMemorial Health [facility]09-14-2023 Instructions* Patient Instructions* Lynne Ni [...] (200mg) daily with a meal Please see director mobile media solutions every 6-12months while on Hydroxychloroquine. azathioprine daily [...] your toes, sit-ups, using row machine termite technician pain recommendations per primary care provider/pain clinic [...] your usual activities immediately. documented in this encounterMemorial Health System [facility] Hospital09-05-2023 Miscellaneous Notes* Telephone Encounter - Maynor Bryson MA - 01/26/2023 7:46 AM EDT patient has viewed the [employer] message per [employer]. * Telephone Encounter - Lynne Ni MD - 01/24/2023 8:04 PM EDT Please Call patient if PinBridge note not read to review results/released to My Chart if tests completed at [facility]: mildly high normal wbc- will monitor. [...] accordingly. Lynne Ni MD documented in this encounterMemorial Health [facility]09-01-2023 Nurse Note* Radha Kebede MA - 01/22/2023 12:17 PM EDT Patient Identification confirmed: yes. Injection given and documented on JUL per provider order. Radha Schofield MA documented in this encounterMemorial Health System [facility]etta [facility] Hospital08-22-2023 Miscellaneous Notes* Telephone Encounter - [...] the above prescription(s) to electronically send to [facility] pharmacy. Milagro Mendiola MA documented in this encounterMemorial Health System [facility]etta [facility] Hospital08-11-2023 History of Present illness Narrative* Misty Nelson MD - 01/01/2023 10:51 AM EDT VIRTUAL VISIT PROGRESS NOTE This is a virtual visit using PinBridge video visit. It required patient-provider interaction for themedical decision making as documented below. I have communicated my name and active licensure. The patient's identity and physical location wereverified at the time of this visit. Either the patient or their legal automobile sales representative has been informed of the [...] otitis or sinusitis No pneumonia She sees house carpenter helper and was diagnosed with lupus She is on Plaquenil, azathioprine Prednisone 10mg once daily for the past year; every few months she gets treated with higher doses of prednisone for flares of her symptoms The medications seem to help the body aches She saw the netbackup administrator Treated with B12 and folic acid We [...] visit. Misty Nelson MD documented in this encounterMemorial Health [facility]07-28-2023 Miscellaneous Notes* Telephone Encounter - Rebekah Rojas APRN.CNP - 12/18/2022 10:48 AM EDT Spoke with patient this morning, 12/18/2022. Rebekah Rojas APRN.TRUE * Telephone Encounter - Lidia Argueta RN - 12/18/2022 9:31 AM EDT Pt called sharepoint solutions architect service last evening stating she was suppose to have a phone call with Rebekah at 330 and never received a call. Pt is still waiting (536 pm 12/17/22). Please advise Lidia Argueta RN documented in this encounterMemorial Health System [facility] Hospital07-28-2023 History of Present illness Narrative* Rebekah Rojas APRN.PRINTING GRAY CLOTH TENDER - 12/18/2022 9:07 AM EDT Images from [...] Total Time Spent: 21 minutes Rebekah Rojas APRN.PRINTING GRAY CLOTH TENDER NAME: Ariadna Haley CLINIC NO.: [id number] DATE OF SERVICE: October 22, 2022 (Marquis) [...] injections. Shefollows with multiple doctors including and head usher, house carpenter helper, production leader and PCP. She has been told they [...] ECOG PERFORMANCE STATUS: 0 PHYSICAL EXAMINATION: Vitals: [facility] 02/26/2022 There is no height or [...] which included preparing to see the patient, xbey-fb-luad patient care, completing clinical documentation, performing a medically appropriate examination, counseling and educating the patient/family/caregiver, ordering medications, tests, or p rocedures, and independently interpreting results (not separately reported). Vera Najera MD, CPE Hematology and Oncology Services Provided at: [place], [place] CC: Manuel Ferris MD [address] [facility] [address] documented in this encounterMemorial Health System Marietta [facility]07-26-2023 Miscellaneous Notes* Telephone Encounter - Pamella Bettencourt RN - 12/16/2022 1:14 PM EDT Pt notified and verbalizes understanding. Clerical: Please change tomorrow's appointment to a phone visit at the end of Rebekah's day. Preferred number is [phone]. In addition, pt will be in next 12/25/22 @ 1130 for her B12 shot. Please add her to the MA schedule. Thanks! Pamella Bettencourt RN * Telephone Encounter - Rebekah Rojas APRN.CNP - 12/16/2022 12:56 PM EDT That would be okay. Have her added at the end of the day. Thanks, Rebekah Rojas APRN.PRINTING GRAY CLOTH TENDER * Telephone Encounter - Pamella Bettencourt RN [...] schedule? Pamella Bettencourt RN documented in this encounterMem[facility]2023 Miscellaneous Notes* Telephone Encounter - [...] advise Enma Hamm RN documented in this encounterMemorial [facility]07-04-2023 Miscellaneous Notes* Telephone Encounter - [...] accordingly. Lynne Ni MD documented in this encounterMemorial [facility]06-29-2023 Nurse Note* Margret Cuenca - 11/19/2022 11:01 AM EDT Patient Identification confirmed: yes. Injection given and documented on JUL per provider order. Margret Cuenca documented in this encounterMemorial [facility]06-01-2023 Nurse Note* Stacy Gutiérrez Ma - 10/22/2022 11:50 AM EDT Patient Identification confirmed: yes. Injection given and documented on JUL per provider order. Stacy Gutiérrez Ma documented in this [facility]06-01-2023 Instructions* Patient Instructions* Vera Najera MD - 10/22/2022 11:43 AM EDT B12 Shot today and every 4 weeks. Continue Folic acid. Follow up in 8 Weeks - labs 1 week before. documented in this [facility]06-01-2023 History of Present illness Narrative* Vera Najera MD - 10/22/2022 11:35 AM EDT Images from the original note were not included. NAME: Ariadna Haley CLINIC NO.: [id number] DATE OF SERVICE: October 22, 2022 (Marquis) [...] injections. Shefollows with multiple doctors including and head usher, house carpenter helper, production leader and PCP. She has been told they [...] which included preparing to see the patient, utnl-bq-doqg patient care, completing clinical documentation, performing a medically appropriate examination, counseling and educating the patient/family/caregiver, ordering medications, tests, or p rocedures, and independently interpreting results (not separately reported). Vera Najera MD, CPE Hematology and Oncology Services Provided at: [place], [place] CC: Manuel Ferris MD [address] [facility] [address] documented in this encounterMemorial Health [facility]05-04-2023 Nurse Note* Stacy Gutiérrez Ma - 09/24/2022 10:22 AM EDT Patient Identification confirmed: yes. Injection given and documented on JUL per provider order. Stacy Gutiérrez Ma documented in this encounterMemorial [facility]04-18-2023 Miscellaneous Notes* Telephone Encounter - Stacy Hernandez - 09/08/2022 2:27 PM EDT Pharmacy-Reviewed Medication History Patient Name:.Ariadna Haley : 1980 Patient Contact Attempt: First attempt Adherence Packing Program Accepted? No, patient does not wish to participate. Patient is not eligible for adherence packaging because PCP is not within [facility]. Patient wishes to continue at [facility] since medication bottles will look the same and then she can pick-up the medications when she needs them. Stacy Hernandez September 08, 2022 2:28 PM [facility] [phone] documented in this encounterMemorial Health [facility]04-17-2023 History of Present illness Narrative* [...] which included preparing to see the patient, tuep-ri-mhja patient care, completing clinical documentation, performing a medically appropriate examination, counseling and educating the patient/family/caregiver, ordering medications, tests, or p rocedures, and communicating with other HCPs (not separately reported). I have communicated my name and active licensure. The patient's identity and physical location wereverified at the time of this visit. Either the patient or their legal automobile sales representative has been informed of the risks and benefits of -- and alternatives to -- treatment through a remote evaluation andconsents to proceed with the evaluation remotely. Christie Phan MD, MA, [facility] Lifestyle Medicine Specialist documented in this encounterMemorial Health [facility]04-17-2023 Nurse Note* Milagro Mendiola MA - 09/07/2022 2:00 PM EDT Called pt to do intake for video visit pt unavailable lft vm msg sent my chart. Milagro Mendiola MA documented in this encounterMemorial Health [facility]04-10-2023 Miscellaneous Notes* Telephone Encounter - Shantel Higgins MA - 08/31/2022 8:38 AM EDT called [facility] pharmacy - pharmacy had 1 refill remaining no action needed from our office documented in this encounterMemorial Health [facility]04-06-2023 Nurse Note* Stacy Gutiérrez Ma - 08/27/2022 10:31 AM EDT Patient Identification confirmed: yes. Injection given and documented on JUL per provider order. Stacy Gutiérrez Ma documented in this encounterMemorial Health [facility]04-06-2023 History of Present illness Narrative* Rebekah Rojas APRN.PRINTING GRAY CLOTH TENDER - 08/27/2022 10:00 AM EDT Images from the original note were not included. NAME: Ariadna Haley [facility] NO.: [id number] DATE OF SERVICE: August 27, 2022 (Bob) [...] injections. Shefollows with multiple doctors including and head usher, house carpenter helper, production leader and PCP. She has been told they [...] stomach other (Crohn's [Other]) Mother Rebekah Rojas APRN.PRINTING GRAY CLOTH TENDER Hematology and Oncology Services Provided at: [facility], [place], [place] CC: Manuel Ferris MD [address] [facility] [address] I spent a total of 30 minutes on the date of the service which included preparing to see the patient, owoa-dh-itai patient care, completing clinical documentation, obtaining and/or reviewing separately obtained history, performing a medically appropriate examination, counseling and educating the pat ient/family/caregiver, ordering medications, tests, or procedures, independently interpreting results (not separately reported), and communicating results to the patient/family/caregiver. documented in this encounterMemorial Health [facility]03-29-2023 Miscellaneous Notes* Telephone Encounter - Freda Noland RN - 08/19/2022 6:42 PM EDT -noted MyChart message read by patient 08/19/22 . Last read by Ariadna Haley at 3:33 PM on 08/19/2022 * Telephone Encounter - Lynne Ni MD - 08/19/2022 3:21 PM EDT Please Call patient if MyChart note not read to review results/released to My Chart if tests completed at [facility]: Improved/ mildly high normal inflammatory test- will monitor. Improved/mildly low vitamin b12- take over the counter [id number] mcg daily. Improved/ normal rest of rheum [...] accordingly. Lynne Ni MD documented in this encounterMemorial Health [facility]03-28-2023 Miscellaneous Notes* Telephone Encounter - [...] accordingly. Lynne Ni MD documented in this encounterMemorial Health [facility]03-20-2023 Miscellaneous Notes* Telephone Encounter - Christie Phan MD - 08/10/2022 9:46 AM EDT [facility] requesting refill, patient never started according to the chart and I have not seen her in follow-up. * Telephone Encounter - Jami Everett Cma - 08/10/2022 7:40 AM EDT [facility] Pharmacy request for the following refill(s): Requested Prescriptions Pending Prescriptions Disp Refills DULoxetine (CYMBALTA) 20 mg capsule [Pharmacy Med Name: DULOXETINE HCL DR 20 MG CAP] 30 capsule 2 Sig: TAKE 1 CAPSULE BY MOUTH ONCE DAILY Please review and advise. Jami Everett Cma documented in this encounterMemorial Health [facility]03-06-2023 Instructions* Patient Instructions* Lexus Heck APRN.PRINTING GRAY CLOTH TENDER - 07/27/2022 9:12 PM EST Images from the original note were not included. Your most recent body mass index (BMI) that we have on record is 40.56 kg/m2. Obstructive sleep apnea (JOSE RAFAEL) worsens with an increase in weight; reduction in weight may improve or resolve your JOSE RAFAEL. Ifyou are not already seeking treatment, there are resources available at the [facility] such as a nutrition consultation or referral to weight management programs at our [facility]. Please let us know if we can [...] the central scheduling system for the [facility] at [phone]. [facility] now offers direct scheduling for patients to schedule appointments. Virtual visits are also available. If not covered by your insurance, there is a 35% discount. Please contact your insurance to determine coverage. Call the office at [phone], option #5 for questions. documented in this encounterMemorial Health [facility]03-06-2023 History of Present illness Narrative* Lexus Heck APRN.CNP - 07/27/2022 10:30 AM EST Images from the original note were not included. [facility] Virtual [...] will have a prescription sent to a [employer] company - [employer] who will be calling you in the [...] Tips for good sleep hygiene shared in Connectloudhart. - Follow up in 2 months in the office. Recommend scheduling this appointment now to ensure the besttime for you. [facility] on 04/13/22 CONSULT TO SLEEP MEDICINE - ADULT CPAP/BIPAP/OTHER PAP THERAPY ORDER Lawanda Miranda MD Interval history : Here for follow up for sleep apnea management. SLEEP APNEA Sleep apnea type : JOSE RAFAEL Most Recent Apnea-Hypopnea Index (AHI): 5.3 Treatment : PAP therapy DME: Josh MOJICA fax: [phone] DME ph: [phone] PAP History: Current PAP settin-15 cm H2O. [...] or near accidents due to drowsy drivin [place] Sleepiness Scale 04/12/2022 07/23/2022 Score 4 (No [...] medications, tests, or procedures. documented in this encounterMemorial Health [facility]03-03-2023 Miscellaneous Notes* Telephone Encounter - [...] complete patient specific tasks. documented in this encounterMemorial Health [facility]03-01-2023 Miscellaneous Notes* Telephone Encounter - Gem Mercedes RN - 07/22/2022 2:37 PM EST [employer] message sent documented in this encounterMemorial Health [facility]12-28-2022 History of Present illness Narrative* Kenzie Shannon - 05/20/2022 2:28 PM EST Patient Identification confirmed: yes. Injection given and documented on JUL per provider order. Kenzie Shannon documented in this [facility]12-28-2022 Miscellaneous Notes* Addendum Note - Vera Najera MD - 05/20/2022 2:27 PM ESTAddended by: VERA NAJERA on: 05/20/2022 02:27 PM Modules accepted: Orders documented in this encounterMemorial Health [facility]12-28-2022 Instructions* Patient Instructions* Vera Najera MD - 05/20/2022 2:23 PM EST B12 Shot Today and every 4 weeks Get fit for CPAP mask and setting this 05/28/2021 Continue Folic acid. RTC in 8 Weeks - labs 1 week before. documented in this encounterMemorial Health [facility]12-28-2022 History of Present illness Narrative* Vera Najera MD - 05/20/2022 1:30 PM EST Images from the original note were not included. NAME: Ariadna Haley CLINIC NO.: [id number] DATE OF SERVICE: May 20, 2022 (Marquis) [...] which included preparing to see the patient, geed-jt-dvam patient care, completing clinical documentation, performing a medically appropriate examination, counseling and educating the patient/family/caregiver, ordering medications, tests, or p rocedures, and independently interpreting results (not separately reported). Vera Najera MD, [facility] Hematology and Oncology Services Provided at: [place], [place] CC: Vera Najera [address] [place] [address] [facility] [id number] Manuel Ferris MD, [address] [place], [place] [id number] CC: Manuel Ferirs MD [address] [place], [place] [id number] documented in this [facility]12-13-2022 Miscellaneous Notes* Telephone Encounter - Gem Mercedes RN - 05/05/2022 2:39 PM EST Faxed order, office notes, demographics, and sleep study to: DME name: Josh Reese [facility] fax: [phone] [facility]IOR ph: [phone] Confirmation received. documented in this [facility]12-13-2022 Miscellaneous Notes* Telephone Encounter - Gem Mercedes RN - 05/05/2022 12:00 PM EST PinBridge message sent documented in this [facility]12-13-2022 Miscellaneous Notes* Telephone Encounter - ANALILIA Monterroso - 05/05/2022 11:36 AM EST [facility] received your PAP order. Due to a major [employer] recall and manufacturing shortage, we are unable to fulfill the request to provide your patient with a CPAP/BIPAP machine at this time. We will keep the request on file and provide when inventory is available or you can forward the order to another DME provider such as [employer], [employer] or [email or web address]. Caring for our patients is our top priority and we apologize for this delay. Thank you for your patience during this time. [phone] #1 documented in this encounterMemorial Health [facility]12-02-2022 Miscellaneous Notes* Telephone Encounter - [...] doctor has noted concern for EDS. Her house carpenter helper has told her that she has Lupus. Based on her history, I noted we can offer in-person evaluations for herself and/or her son to see if any genetic testing may be useful. I validated and provided support on the difficulty with her ambulation and transport concerns. [facility]. I offered social work and/or transport assistance for the visit. She declined this and will discuss with her regarding the transport. She verbalized understanding the reasons for in-person evaluation recommended. She has the [facility] line and will call to reschedule for an in-person evaluation at [facility]. Ny Lance MD Reel Blade Bender Furnace Tender, Associate Staff [facility] documented in this encounterMemorial Health [facility]11-30-2022 Miscellaneous Notes* Telephone Encounter - [...] copy of the report. Confirmed patient's email [email or web address] Eliza Licea Genetic Counselor Airline Pilot Flight Instructor documented in this encounterMemorial Health System [facility]11-08-2022 Miscellaneous Notes* Telephone Encounter - Renate Lawrence MA - 03/31/2022 2:34 PM EST [facility] pharmacy electronically requests the following refill(s) Requested Prescriptions Pending Prescriptions Disp Refills DULoxetine (CYMBALTA) 20 mg capsule [Pharmacy Med Name: DULOXETINE HCL DR 20 MG CAP] 30 capsule 2 Sig: TAKE 1 CAPSULE BY MOUTH ONCE DAILY Renate Lawrence MA documented in this encounterMemorial Health [facility]11-07-2022 Miscellaneous Notes* Telephone Encounter - Maria Eugenia Sheehan LPN - 03/30/2022 11:53 AM EST [facility] and sent Connectloudhart regarding Dr. Nelson's directive. * Telephone Encounter [...] Thanks. Misty Nelson MD documented in this encounterMemorial Health [facility]11-07-2022 Miscellaneous Notes* Telephone Encounter - Maria Eugenia Sheehan LPN - 03/30/2022 11:49 AM EST LVM and sent MyChart regarding Dr. Nelson's directive. documented in this encounterMemorial Health [facility]10-26-2022 Instructions* Patient Instructions* Vera Najera MD - 03/18/2022 11:16 AM EDT Referral for sleep study pending Start on Folic acid. RTC in 8 Weeks - labs 1 week before. documented in this encounterMemorial Health [facility]10-26-2022 History of Present illness Narrative* Vera Najera MD - 03/18/2022 10:45 AM EDT Images from the original note were not included. NAME: Ariadna Haley CLINIC NO.: [id number] DATE OF SERVICE: March 18, 2022 ([place]quis) [...] which included preparing to see the patient, bqid-qd-cqcc patient care, completing clinical documentation, performing a medically appropriate examination, counseling and educating the patient/family/caregiver, ordering medications, tests, or p rocedures, and independently interpreting results (not separately reported). Vera Najera MD, CPE Hematology and Oncology Services Provided at: [place], [place] CC: Manuel Ferris MD [address] [facility] [address] documented in this encounterMemorial Health System [facility]10-18-2022 History of Present illness Narrative* Misty Nelson MD - 03/10/2022 2:14 PM EDT VIRTUAL VISIT PROGRESS NOTE This is a virtual visit using PinBridge video visit. It required patient-provider interaction for [...] the HR increases again She sees a director of graduate admissions in [place] PCP is running the Holter and echo [...] but was not pursued yet Lives in [place] She did have LN biopsy in the [...] visit. Misty Nelson MD documented in this encounterMemorial Health [facility]10-17-2022 History of Past illness Narrative* Problem Noted Date Diagnosed Date Resolved Date Obesity, Class II, BMI 35-39.9 03/09/2022 03/10/2023 Obesity (BMI 30-39.9) 05/31/20142016 documented as of this encounter (statuses as of 03/10/2023) [address]17-2022 History of Past illness Narrative* Problem Noted Date Diagnosed Date Resolved Date Obesity, Class II, BMI 35-39.9 03/09/2022 03/10/2023 Obesity (BMI 30-39.9) 05/31/20142016 documented as of this encounter (statuses as of 03/11/2023) [facility] History of Past illness Narrative* Problem Noted Date Diagnosed Date Resolved Date Obesity, Class II, BMI 35-39.9 03/09/2022 03/10/2023 Obesity (BMI 30-39.9) 05/31/20142016 documented as of this encounter (statuses as of 03/19/2023) [address]17-2022 History of Past illness Narrative* Problem Noted Date Diagnosed Date Resolved Date Obesity, Class II, BMI 35-39.9 03/09/2022 03/10/2023 Obesity (BMI 30-39.9) 05/31/20142016 documented as of this encounter (statuses as of 03/24/2023) [facility] History of Past illness Narrative* Problem Noted Date Diagnosed Date Resolved Date Obesity, Class II, BMI 35-39.9 03/09/2022 03/10/2023 Obesity (BMI 30-39.9) 05/31/20142016 documented as of this encounter (statuses as of 04/16/2023) [address]17-[address]22 History of Past illness Narrative* Problem Noted Date Diagnosed Date Resolved Date Obesity, Class II, BMI 35-39.9 03/09/2022 03/10/2023 Obesity (BMI 30-39.9) 05/31/20142016 documented as of this encounter (statuses as of 04/23/2023) [address]17-2022 History of Past illness Narrative* Problem Noted Date Diagnosed Date Resolved Date Obesity, Class II, BMI 35-39.9 03/09/2022 03/10/2023 Obesity (BMI 30-39.9) 05/31/20142016 documented as of this encounter (statuses as of 04/27/2023) [facility] History of Past illness Narrative*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 Elevated sed rate Elevated sedimentation rate [facility] Diagnosis Obesity, Class III, BMI >= 40- Primary Morbid obesity FUO (fever of unknown origin) Fever, unspecified Other chronic pain documented in this encounter [facility] note* Diagnosis Obesity, Class III, BMI >= 40 Morbid obesity [facility] Diagnosis Obesity, Class III, BMI >= 40- Primary Morbid obesity Other chronic pain documented in this encounter [facility] note* Diagnosis Irregular heart rate- Primary Essential hypertension Unspecified essential hypertension Autonomic dysfunction Obstructive sleep apnea syndrome Obstructive sleep apnea (adult) (pediatric) Primary hypertension Unspecified essential hypertension documented in this encounter [facility] Work Phone: Evaluation note* Diagnosis Autoimmune disease (CMS/HCC)- Primary Autoimmune disease, not elsewhere classified Autonomic dysfunction Lumbosacral radiculopathy Thoracic or lumbosacral neuritis or radiculitis, unspecified Bilateral leg weakness Muscle weakness (generalized) [facility] Diagnosis Shortness of breath- Primary Paroxysmal supraventricular tachycardia PAC (premature atrial contraction) Supraventricular premature beats Current smoker Systemic lupus erythematosus, unspecified SLE type, unspecified organ involvement status (CMS/HCC) Palpitations Obstructive sleep apnea syndrome Obstructive sleep apnea (adult) (pediatric) Morbid obesity (CMS/HCC) Morbid obesity Bilateral lower extremity edema documented in this encounter [facility] Work Phone: Evaluation note* Diagnosis Megaloblastic anemia due to vitamin B12 deficiency- Primary Other vitamin B12 deficiency anemia Elevated sed rate Elevated sedimentation rate documented in this encounter [facility] note* Diagnosis Systemic lupus erythematosus with other organ involvement (HCC)- Primary [facility] Diagnosis Systemic lupus erythematosus with other organ involvement (HCC)- Primary [facility]* Diagnosis Megaloblastic anemia due to vitamin B12 deficiency- Primary Other vitamin B12 deficiency anemia Elevated sed rate Elevated sedimentation rate [facility] Diagnosis Other systemic lupus erythematosus with other organ involvement (HCC)- Primary Vitamin D deficiency Unspecified vitamin D deficiency Elevated LFTs Other abnormal blood chemistry Anemia of chronic disease Anemia of other chronic disease Elevated sed rate Elevated sedimentation rate Elevated C-reactive protein (CRP) [facility] Diagnosis Megaloblastic anemia due to vitamin B12 deficiency- Primary Other vitamin B12 deficiency anemia Obstructive sleep apnea syndrome Obstructive sleep apnea (adult) (pediatric) Chronic fatigue and malaise Chronic fatigue syndrome High total serum IgM JOSE RAFAEL (obstructive sleep apnea) Obstructive sleep apnea (adult) (pediatric) Somnolence, daytime Hypersomnia, unspecified [facility] Diagnosis Elevated sed rate- Primary Elevated sedimentation rate Megaloblastic anemia due to vitamin B12 deficiency Other vitamin B12 deficiency anemia [facility]* Diagnosis Other systemic lupus erythematosus [...] other medications Long-term use of high-risk medication [facility] 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-term (current) use of steroids 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 Bilateral hand pain Pain in limb History of vitamin D deficiency Personal history of nutritional deficiency [facility] Diagnosis Elevated sed rate- Primary Elevated sedimentation rate Megaloblastic anemia due to vitamin B12 deficiency Other vitamin B12 deficiency anemia [facility]* Diagnosis Other systemic lupus erythematosus with other organ involvement (HCC) 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-term (current) use of other medications [facility]* Diagnosis Systemic lupus erythematosus with other organ involvement (HCC)- Primary [facility]* Diagnosis Vitamin B12 deficiency- Primary Other B-complex deficiencies [facility]* Diagnosis Elevated sed rate- Primary Elevated sedimentation rate Megaloblastic anemia due to vitamin B12 deficiency Other vitamin B12 deficiency anemia [facility]* Diagnosis Elevated sed rate- Primary Elevated sedimentation rate Megaloblastic anemia due to vitamin B12 deficiency Other vitamin B12 deficiency anemia [facility] Diagnosis Megaloblastic anemia due to vitamin B12 deficiency- Primary Other vitamin B12 deficiency anemia Elevated sed rate Elevated sedimentation rate Obstructive sleep apnea syndrome Obstructive sleep apnea (adult) (pediatric) [facility]* Diagnosis Elevated LFTs- Primary Other abnormal blood chemistry Elevated C-reactive protein (CRP) Elevated sed rate Elevated sedimentation rate Vitamin D deficiency Unspecified vitamin D deficiency Screening-pulmonary TB Screening examination for pulmonary tuberculosis [facility]* Diagnosis Other systemic lupus erythematosus with other organ involvement (HCC) [facility] Diagnosis Systemic lupus erythematosus with other organ involvement (HCC)- Primary [facility]* Diagnosis Elevated sed rate- Primary Elevated sedimentation rate Megaloblastic anemia due to vitamin B12 deficiency Other vitamin B12 deficiency anemia [facility]* Diagnosis Pseudomonas infection- Primary Pseudomonas infection in conditions classified elsewhere and of unspecified site Other systemic lupus erythematosus with other organ involvement (HCC) On prednisone therapy Long-term use of Plaquenil 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-term (current) use of other medications [facility]* Diagnosis Onset Date Resolution Status Lupus acute Recurrent Clostridioides difficile diarrhea acute Nipple discharge in female a cute Recurrent Clostridioides difficile diarrhea acute Lumbosacral spondylosis acut e Other chronic pain acute Sacroiliitis acute [facility] Work Phone: Evaluation note* Diagnosis JOSE RAFAEL (obstructive sleep apnea)- Primary Obstructive sleep apnea (adult) (pediatric) Somnolence, daytime Hypersomnia, unspecified [facility]* Diagnosis Systemic lupus erythematosus with other organ involvement (HCC)- Primary [facility] Diagnosis Systemic lupus erythematosus with other organ involvement (HCC)- Primary [facility]* Diagnosis Onset Date Resolution Status Nipple discharge in female a cute Recurrent Clostridioides difficile diarrhea acute Lumbosacral spondylosis acut e Other chronic pain acute Sacroiliitis acute [facility] Work Phone: Evaluation note* Diagnosis Elevated sed rate- Primary Elevated sedimentation rate Megaloblastic anemia due to vitamin B12 deficiency Other vitamin B12 deficiency anemia [facility] Diagnosis Onset Date Resolution Status Nipple discharge in female a cute Recurrent Clostridioides difficile diarrhea acute Lumbosacral spondylosis acut e Other chronic pain acute Sacroiliitis acute Lumbosacral spondylosis acut e Other chronic pain acute Sacroiliitis acute [facility] Work Phone: Evaluation note* Diagnosis Lumbosacral radiculopathy at L5 Degenerative disc disease, lumbar Cervical radiculopathy at C5 documented [facility]* Diagnosis Onset Date Resolution Status Lumbosacral spondylosis acut e Other chronic pain acute Sacroiliitis acute Lumbosacral spondylosis acut e Other chronic pain acute Sacroiliitis acute [facility] Work Phone: Evaluation note* Diagnosis Other systemic lupus erythematosus with other organ involvement (HCC) [facility] Diagnosis Other systemic [...] both feet Long-term use of high-risk medication [facility] 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-term (current) use of steroids Bilateral hand pain Pain in limb Systemic lupus erythematosus, unspecified SLE type, unspecified organ involvement status (HCC) Vitamin B12 deficiency Other B-complex deficiencies Discoid lupus erythematosus Lupus erythematosus [facility]* Diagnosis Nipple discharge Other sign and symptom in breast documented in this encounter [facility]* Diagnosis Elevated sed rate- Primary Elevated sedimentation rate Megaloblastic anemia due to vitamin B12 deficiency Other vitamin B12 deficiency anemia [facility]* Diagnosis Abnormal uterine bleeding (AUB) Menorrhagia with regular cycle documented in this encounter [facility]* Diagnosis Megaloblastic anemia due to vitamin B12 deficiency- Primary Other vitamin B12 deficiency anemia High total serum IgM JOSE RAFAEL (obstructive sleep apnea) Obstructive sleep apnea (adult) (pediatric) Elevated sed rate Elevated sedimentation rate Hypogammaglobulinemia (HCC) Hypogammaglobulinaemia, unspecified Frequent infections [facility]* Diagnosis Oral thrush- Primary Candidiasis of mouth documented in this encounter [facility]* Diagnosis Oral thrush- Primary Candidiasis of mouth documented in this encounter [facility]* Diagnosis Systemic lupus erythematosus with other organ involvement (HCC)- Primary [facility]* Diagnosis LPRD (laryngopharyngeal reflux disease)- Primary Acute laryngitis, without mention of obstruction Acute otalgia, right documented in this encounter [facility]* Diagnosis Autoimmune disease (CMS/HCC) Autoimmune disease, not elsewhere classified Fibromyalgia Unspecified myalgia and myositis Numbness Disturbance of skin sensation documented in this encounter [facility]* Diagnosis Lumbosacral radiculopathy at L5- Primary Degenerative disc disease, lumbar Cervical radiculopathy at C5 documented in this encounter [facility]* Diagnosis Degenerative disc disease, lumbar- Primary Lumbosacral radiculopathy at L5 documented in this encounter [facility]* Diagnosis Frequent infections- Primary Megaloblastic anemia due to vitamin B12 deficiency Other vitamin B12 deficiency anemia Elevated sed rate Elevated sedimentation rate Hypogammaglobulinemia (HCC) Hypogammaglobulinaemia, unspecified Bilateral leg weakness Other musculoskeletal symptoms referable to limbs Discoid lupus erythematosus Lupus erythematosus [facility]* Diagnosis Well woman exam with routine gynecological exam Routine gynecological examination Breast cancer screening by mammogram Breast nodule Other (abnormal) findings on radiological examination of breast documented in this encounter [facility]* Diagnosis Megaloblastic anemia due to vitamin B12 deficiency- Primary Other vitamin B12 deficiency anemia Hypogammaglobulinemia (HCC) Hypogammaglobulinaemia, unspecified Positive blood cultures Bacteremia Malaise and fatigue Other malaise and fatigue SOB (shortness of breath) Shortness of breath [facility] Diagnosis Elevated sed rate- Primary Elevated sedimentation rate Megaloblastic anemia due to vitamin B12 deficiency Other vitamin B12 deficiency anemia Hypogammaglobulinemia (HCC) Hypogammaglobulinaemia, unspecified Frequent infections Bilateral leg weakness Other musculoskeletal symptoms referable to limbs Discoid lupus erythematosus Lupus erythematosus [facility] Diagnosis Diarrhea, unspecified type- Primary Abdominal pressure Abdominal pain, unspecified site [facility] Diagnosis Other iron deficiency anemia- Primary [facility] Diagnosis Other systemic lupus erythematosus with other organ involvement (HCC) documented [facility] Diagnosis Systemic lupus erythematosus with other organ involvement (HCC)- Primary [facility] Diagnosis Systemic lupus erythematosus (CMS-HCC)- Primary Cold extremities Pain of lower extremity, unspecified laterality Rheumatoid arthritis, involving unspecified site, unspecified whether rheumatoid factor present ([facility]-HCC) Current smoker 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 documented [facility]* Diagnosis Systemic lupus erythematosus (CMS-HCC)- Primary Cold extremities Pain of lower extremity, unspecified laterality Rheumatoid arthritis, involving unspecified site, unspecified whether rheumatoid factor present (CMS-HCC) Current smoker 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 Peripheral vascular disease, unspecified (CMS-HCC)- Primary Peripheral vascular disease, unspecified Cold extremities Systemic lupus erythematosus (CMS-HCC) documented in this encounter [facility]* Diagnosis Other systemic lupus erythematosus with other organ involvement (HCC)- Primary Vitamin D deficiency Unspecified vitamin D deficiency Elevated LFTs Other abnormal blood chemistry Anemia of chronic disease Anemia of other chronic disease Elevated sed rate Elevated sedimentation rate Elevated C-reactive protein (CRP) [facility]* Diagnosis Onset Date Resolution Status Admit Date Lumbosacral spondylosis acute F ebruary 2024 3:16pm Other chronic pain acute Februa ry 2024 3:16pm Sacroiliitis acute June 3:16pm [facility] Work Phone: Evaluation note* Diagnosis Elevated sed rate- Primary Elevated sedimentation rate Megaloblastic anemia due to vitamin B12 deficiency Other vitamin B12 deficiency anemia Frequent infections Hypogammaglobulinemia (HCC) Hypogammaglobulinaemia, unspecified Bilateral leg weakness Other musculoskeletal symptoms referable to limbs Discoid lupus erythematosus Lupus erythematosus documented [facility]* Diagnosis LPRD (laryngopharyngeal reflux disease) Other diseases of larynx Dry mouth Disturbance of salivary secretion Current smoker Tobacco use disorder Abnormal mouth sensation Other and unspecified diseases of the oral soft tissues documented [facility]* Diagnosis Nipple discharge- Primary Other sign and symptom in breast Other systemic lupus erythematosus with other organ involvement (HCC) On prednisone therapy Long-term use of Plaquenil 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-term (current) use of other medications [facility] Diagnosis Hidradenitis suppurativa- Primary Hidradenitis Other seborrheic dermatitis Lupus erythematosus tumidus (CMS/HCC) Rash and other nonspecific skin eruption Capillary angioma Nevus, non-neoplastic Neoplasm of uncertain behavior of skin [facility] Diagnosis Sinus tachycardia- Primary Other specified cardiac dysrhythmias Shortness of breath Paroxysmal supraventricular tachycardia (CMS-HCC) Paroxysmal supraventricular tachycardia Essential hypertension Unspecified essential hypertension Obstructive sleep apnea syndrome Obstructive sleep apnea (adult) (pediatric) Morbid obesity (Multi) Morbid obesity Current smoker documented in this encounter [facility] Work Phone: Evaluation note* Diagnosis Elevated sed rate- Primary Elevated sedimentation rate Megaloblastic anemia due to vitamin B12 deficiency Other vitamin B12 deficiency anemia Frequent infections Hypogammaglobulinemia (HCC) Hypogammaglobulinaemia, unspecified Bilateral leg weakness Other musculoskeletal symptoms referable to limbs Discoid lupus erythematosus Lupus erythematosus [facility] Diagnosis Systemic lupus erythematosus with other organ involvement (HCC)- Primary [facility] Diagnosis Vitamin B12 deficiency- Primary Other B-complex deficiencies Other iron deficiency anemia Hypogammaglobulinemia (HCC) Hypogammaglobulinaemia, unspecified documented [facility]* Diagnosis Other systemic lupus erythematosus with other organ involvement (HCC) documented [facility] Diagnosis Thyroid nodule (CMS/HCC)- Primary Nontoxic uninodular goiter LPRD (laryngopharyngeal reflux disease) Acute laryngitis, without mention of obstruction [facility] Diagnosis Hypogammaglobulinemia (HCC)- Primary Hypogammaglobulinaemia, unspecified Vitamin B12 deficiency Other B-complex deficiencies Other iron deficiency anemia Megaloblastic anemia due to vitamin B12 deficiency Other vitamin B12 deficiency anemia [facility]* Diagnosis Frequent infections- Primary Hypogammaglobulinemia (HCC) Hypogammaglobulinaemia, unspecified Bilateral leg weakness Other musculoskeletal symptoms referable to limbs Discoid lupus erythematosus Lupus erythematosus Elevated sed rate Elevated sedimentation rate Megaloblastic anemia due to vitamin B12 deficiency Other vitamin B12 deficiency anemia [facility] Diagnosis Other systemic lupus erythematosus with other organ involvement (HCC)- Primary [facility]* Diagnosis Other systemic lupus erythematosus with other organ involvement (HCC) [facility]* Diagnosis Systemic lupus erythematosus with other organ involvement (HCC)- Primary [facility]* Diagnosis Fibromyalgia- Primary Mylagia and myositis, unspecified Family history of disease of aorta Family history of cancer Family history of unspecified malignant neoplasm [facility] Diagnosis Frequent infections- Primary Hypogammaglobulinemia (HCC) [...] vitamin D deficiency [facility]* Diagnosis Other systemic lupus erythematosus with other organ involvement (HCC)- Primary [facility]* Diagnosis Other systemic lupus erythematosus with other organ involvement (HCC)- Primary Elevated LFTs Other abnormal blood chemistry Anemia of chronic disease Anemia of other chronic disease Elevated sed rate Elevated sedimentation rate Elevated C-reactive protein (CRP) Vitamin B12 deficiency Other B-complex deficiencies Screening-pulmonary TB Screening examination for pulmonary tuberculosis Vitamin D deficiency Unspecified vitamin D deficiency [facility] Diagnosis Other systemic lupus erythematosus [...] both feet Long-term use of high-risk medication [facility] 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-term (current) use of steroids Bilateral hand pain Pain in limb Family history of Crohn's disease Family history of other digestive disorders 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 Bilateral wrist pain 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, forearm [facility] Diagnosis Other systemic lupus erythematosus with other organ involvement (HCC)- Primary [facility]* Diagnosis Generalized articular hypermobility- Primary Other joint derangement, not elsewhere classified, multiple sites Chronic pain syndrome Discoid lupus erythematosus Lupus erythematosus Family history of pneumothorax in son Family history of other condition Family history of cancer Family history of unspecified malignant neoplasm Family history of mild aortic dilation in daughter Family history of other cardiovascular diseases [facility] Diagnosis Elevated sed rate- Primary Elevated sedimentation rate Megaloblastic anemia due to vitamin B12 deficiency Other vitamin B12 deficiency anemia Frequent infections Hypogammaglobulinemia (HCC) Hypogammaglobulinaemia, unspecified Bilateral leg weakness Other musculoskeletal symptoms referable to limbs Discoid lupus erythematosus Lupus erythematosus [facility]* Diagnosis Other systemic lupus erythematosus with other organ involvement (HCC)- Primary [facility]* Diagnosis Hypogammaglobulinemia (HCC)- Primary Hypogammaglobulinaemia, unspecified [facility]* Diagnosis Hidradenitis suppurativa- Primary Hidradenitis Pain Generalized pain Acne vulgaris Other acne [facility] Diagnosis Hypogammaglobulinemia (HCC)- Primary Hypogammaglobulinaemia, unspecified Vitamin B12 deficiency Other B-complex deficiencies Other iron deficiency anemia Malaise and fatigue Other malaise and fatigue Shortness of breath Other specified disorders of breast Pre-diabetes Other abnormal glucose Gastro-esophageal reflux disease without esophagitis Esophageal reflux [facility]* Diagnosis Elevated sed rate- Primary Elevated sedimentation rate Megaloblastic anemia due to vitamin B12 deficiency Other vitamin B12 deficiency anemia Frequent infections Hypogammaglobulinemia (HCC) Hypogammaglobulinaemia, unspecified Bilateral leg weakness Other musculoskeletal symptoms referable to limbs Discoid lupus erythematosus Lupus erythematosus [facility]* Diagnosis Other systemic lupus erythematosus with other organ involvement (HCC)- Primary [facility]* Diagnosis Other systemic lupus erythematosus with other organ involvement (HCC)- Primary Elevated LFTs Other abnormal blood chemistry Anemia of chronic disease Anemia of other chronic disease Elevated sed rate Elevated sedimentation rate Elevated C-reactive protein (CRP) Vitamin D deficiency Unspecified vitamin D deficiency Vitamin B12 deficiency Other B-complex deficiencies Screening-pulmonary TB Screening examination for pulmonary tuberculosis [facility]* Diagnosis Other systemic lupus erythematosus with other organ involvement (HCC)- Primary Elevated LFTs Other abnormal blood chemistry Anemia of chronic disease Anemia of other chronic disease Elevated C-reactive protein (CRP) Elevated sed rate Elevated sedimentation rate Vitamin D deficiency Unspecified vitamin D deficiency [facility] Diagnosis Frequent infections- Primary Hypogammaglobulinemia (HCC) Hypogammaglobulinaemia, unspecified Bilateral leg weakness Other musculoskeletal symptoms referable to limbs Discoid lupus erythematosus Lupus erythematosus Elevated sed rate Elevated sedimentation rate Megaloblastic anemia due to vitamin B12 deficiency Other vitamin B12 deficiency anemia [facility] Diagnosis Pilonidal cyst- Primary Hidradenitis suppurativa Hidradenitis documented in this encounter [facility] HealthcareEvaluation note* Diagnosis Pilonidal abscess- Primary Pilonidal cyst with abscess Pilonidal cyst documented in this encounter [facility] HealthcareHistory general Narrative - Reported* Type Description Date Medical History hyperlipidemia Medical History insulin resistance Medical History CMV Surgical History cyst removal pilonidal Surgical History D&C Hospitalization History [facility] Other Hospital Discharge instructionsAmbulatory Orders* Referral to Gastroenterology Location: None [facility] Work Phone: InstructionsNot on filedocumented in this encounter [facility] SystemReason for referral (narrative)* Diagnostic Procedure Only (Routine) - Pending Review Specialty Diagnoses / Procedures Referred By Contac t Referred To Contact XR IMAGING Diagnoses Steroid-induced osteoporosis Procedures DXA-FOREARM SKELETON DXA BONE DENSITY STUDY /SITES APPENDICLR Lynne Perera MD [address] [place] [address] [place] [address] Referral ID Status Reason Start Date Expiration Date Visits Requested Visits Authorized [id number] Pending Review Auto-Generat ed Referral 02/04/2023 03/05/2024 1 1 [facility] for referral (narrative)* Consultation (Routine) - Authorized Specialty Diagnoses / Procedures Referred By Contac t Referred To Contact Cardiology Diagnoses Irregular heart rate Essential hypertension Autonomic dysfunction Obstructive sleep apnea syndrome Primary hypertension Procedures Follow Up In Cardiology Michelle Jasmine APRN-PRINTING GRAY CLOTH TENDER [address] [facility] [address] [place] [address] Aurora Patel MD [address] [address] Referral ID Status Reason Start Date Expiration Date V isits Requested Visits Authorized Authorized 06/09/2023 06/08/2024 1 1 * Cardiovascular (Routine) - Pending Review Specialty Diagnoses / Procedures Referred By Contac t Referred To Contact Cardiology Diagnoses Irregular heart rate Procedures Holter Or Event Follow Up Specialist Michelle Jasmine APRN-CNP [address] [place] [address] Referral ID Status Reason Start Date Expiration Date V isits Requested Visits Authorized Pending Review 06/09/2023 06/08/2024 1 1 * CV Imaging (Routine) - Pending Review Specialty Diagnoses / Procedures Referred By Contac t Referred To Contact Cardiology Diagnoses Irregular heart rate Obstructive sleep apnea syndrome Procedures Transthoracic Echo (TTE) Complete VT ECHO TTHRC R-T 2D W/WOM-MODE COMPL SPEC&COLR D Michelle Jasmine APRN-PRINTING GRAY CLOTH TENDER [address] [facility] [address] [place] [address] Referral ID Status Reason Start Date Expiration Date Visits Requested Visits Authorized Pending Review Perform Procedure 06/09/2023 06/08/2024 1 1 * Cardiovascular (Routine) - Authorized Specialty Diagnoses / Procedures Referred By Contac t Referred To Contact Diagnoses Irregular heart rate Procedures ECG 12 Lead Michelle Jasmine APRN-TRUE [address] [facility] [address] [place] [address] Referral ID Status Reason Start Date Expiration Date V isits Requested Visits Authorized [id number] Authorized 06/09/2023 06/08/2024 1 1 [facility] Work Phone: Reason for referral (narrative)* Consultation (Routine) - Pending Review Specialty Diagnoses / Procedures Referred By Contac t Referred To Contact Pain Medicine Diagnoses Lumbosacral radiculopathy at L5 Degenerative disc disease, lumbar Procedures [place] OFFICE/OUTPATIENT [facility] 60 MINUTES Kade Richardson MD [address] [address] Adolfo Kang MD [address] [address] Referral ID Status Reason Start Date Expiration Date Visits Requested Visits Authorized [id number] Pending Review Specialty Services Required 01/20/2024 07/18/2024 1 1 [facility] (narrative)No reason for referral information availableSelect Medical [facility] Work Phone: Reason for visit Narrative* [place] Prior Authorization (Routine) - Authorized Specialty Diagnoses / Procedures Referred By Contac t Referred To Contact Diagnoses Frequent infections Hypogammaglobulinemia (HCC) Bilateral leg weakness Discoid lupus erythematosus Procedures GAMMAGARD LIQUID INJECTION Vera Najera MD [address] [place] [address] Phone: tel: fax: Hematology/Oncology [address] [place] [address] Phone: tel: fax: Referral ID Status Reason Start Date Expiration Date V isits Requested Visits Authorized [id number] Authorized 04/03/2024 10/01/2024 7 7 [facility] for visit Narrative* [place] Prior Authorization (Routine) - Authorized Specialty Diagnoses / Procedures Referred By Contac t Referred To Contact Diagnoses Other systemic lupus erythematosus with other organ involvement (HCC) Procedures BELIMUMAB INJECTION Lynne Ni MD [address] [place] [address] Phone: tel: fax: Lynne Ni MD [address] [place] [address] Phone: tel: fax: Referral ID Status Reason Start Date Expiration Date V isits Requested Visits Authorized [id number] Authorized 09/08/2024 03/10/2025 8 8 [facility] for visit Narrative* [place] Prior Authorization (Routine) - Authorized Specialty Diagnoses / Procedures Referred By Contac t Referred To Contact Diagnoses Other iron deficiency anemia Procedures IRON SUCROSE INJECTION PER 1 MG Vaibhav Carvalho APRN.PRINTING GRAY CLOTH TENDER [address] [place] [address] Phone: tel: fax: Hematology/Oncology [address] [place] [address] Phone: tel: fax: Referral ID Status Reason Start Date Expiration Date V isits Requested Visits Authorized [id number] Authorized 06/16/2024 05/23/2025 99 99 [facility] for visit Narrative* [place] Prior Authorization (Routine) - Authorized Specialty Diagnoses / Procedures Referred By Contac t Referred To Contact Diagnoses Frequent infections Hypogammaglobulinemia (HCC) Bilateral leg weakness Discoid lupus erythematosus Procedures GAMMAGARD LIQUID INJECTION Vera Najera MD [address] [place] [address] Phone: tel: fax: Hematology/Oncology [address] [place] [address] Phone: tel: fax: Referral ID Status Reason Start Date Expiration Date Visits Requested Visits Authorized [id number] Authorized Patient Cleared - Admin/Chairm an/Director advise to proceed or did not respond 10/30/2024 10/30/2025 19 19 [facility] for visit Narrative* [place] Prior Authorization (Routine) - Authorized Specialty Diagnoses / Procedures Referred By Contac t Referred To Contact Diagnoses Frequent infections Hypogammaglobulinemia (HCC) Bilateral leg weakness Discoid lupus erythematosus Procedures GAMMAGARD LIQUID INJECTION Vera Najera MD [address] [place] [address] Phone: tel: fax: Hematology/Oncology [address] [place] [address] [place] [id number] Phone: tel: fax: Referral ID Status Reason Start Date Expiration Date Visits Requested Visits Authorized [id number] Authorized Patient Cleared - Admin/Chairm an/Director advise to proceed or did not respond 10/30/2024 10/30/2025 18 18 [facility] for visit Narrative* [place] Prior Authorization (Routine) - Authorized Specialty Diagnoses / Procedures Referred By Contac t Referred To Contact Diagnoses Frequent infections Hypogammaglobulinemia (HCC) Bilateral leg weakness Discoid lupus erythematosus Procedures GAMMAGARD LIQUID INJECTION IMMUNE GLOBULIN INJECTION Vera Najera MD [address] [place] [address] Phone: tel: fax: Hematology/Oncology [address] [place] [address] Phone: tel: fax: Referral ID Status Reason Start Date Expiration Date Visits Requested Visits Authorized [id number] Authorized Patient Cleared - Admin/Chairm an/Director advise to proceed or did not respond 10/30/2024 10/30/2025 19 19 [facility] Summary Purpose Family History Relationship Condition Age at Onset Recorded Date/T michelle father Unknown Malignant neoplasm Unknown Relationship Condition Age at Onset Recorded Date/T michelle father Malignant neoplasm of stomach Unknown Unknown mother Crohn's disease Unknown Advance Directives Documents on File Type Date Recorded Patient Network Intern Expl anation ACP-Advance Directive ACP-Power of Plant Protection Guard Latest Code Status on File Code Status Date Activated Date Inactivated Comments Full Code 10/07/2020 8:32 AM Documents on File Type Date Recorded Patient Network Intern Expl anation Advance Directive(s) 09/13/2015 8:36 AM Advance Directive Response Recorded Date/ Time Advance Directives No September 17 2:40pm Advance Directive Response Recorded Date/ Time Advance Directives No September 17 1:40pm Reason for Referral Specialty Diagnoses / Procedures Referred By Contac t Referred To Contact Infectious Diseases Diagnoses Positive blood cultures Procedures CONSULT TO INFECTIOUS DISEASES OFFICE/OUTPATIENT [facility] 60 MINUTES Vaibhav Carvalho APRN.PRINTING GRAY CLOTH TENDER [address] [place] [address] Referral ID Status Reason Start Date Expiration Date Visits Requested Visits Authorized [id number] Authorized PCP Requested Referral 06/13/2024 06/13/2025 1 1 Specialty Diagnoses / Procedures Referred By Contac t Referred To Contact Diagnoses Paroxysmal supraventricular tachycardia PAC (premature atrial contraction) Procedures ECG 12 Lead Lois Holm MD [address] [facility] 2, [address] [address] Referral ID Status Reason Start Date Expiration Date V isits Requested Visits Authorized [id number] Authorized 07/13/2023 07/12/2024 1 1 Specialty Diagnoses / Procedures Referred By Contac t Referred To Contact Cardiology Diagnoses Shortness of breath Paroxysmal supraventricular tachycardia PAC (premature atrial contraction) Procedures Follow Up In Cardiology Holm, Abreu M, MD [address] [facility] 2, [address] [address] Lois Holm MD [address] [facility] 2, [facility] [address] [place] [address] Referral ID Status Reason Start Date Expiration Date V isits Requested Visits Authorized [id number] Authorized 07/13/2023 07/12/2024 1 1 Specialty Diagnoses / Procedures Referred By Contac t Referred To Contact Diagnoses Obesity, Class III, BMI 40-49.9 (morbid obesity) (HCC) Pre-diabetes Christie Phan MD [address] [place] [address] Referral ID Status Reason Start Date Expiration Date Visits Re quested Visits Authorized [id number] Closed 1 1 Specialty Diagnoses / Procedures Referred By Contac t Referred To Contact Diagnoses Wound healing, delayed Procedures CONSULT TO MEDICAL GENETICS - GENERAL OFFICE/OUTPATIENT [facility] 60-74 MINUTES MEDICAL GENETICS COUNSELING EACH 30 MINUTES Misty Nelson MD [facility] [place] [id number] [address] Referral ID Status Reason Start Date Expiration Date Visits Requested Visits Authorized [id number] Authorized PCP Requested Referral Auto-Generate d Referral 2 03/10/2023 1 1 Specialty Diagnoses / Procedures Referred By Contac t Referred To Contact Neurology Diagnoses POTS (postural orthostatic tachycardia syndrome) Procedures CONSULT TO NEUROLOGY OFFICE/OUTPATIENT [facility] 60-74 MINUTES Christie Phan MD [address] [place] [address] Referral ID Status Reason Start Date Expiration Date Visits Requested Visits Authorized [id number] Authorized PCP Requested Referral 2 03/12/2023 1 1 Specialty Diagnoses / Procedures Referred By Contac t Referred To Contact Immunology Diagnoses Raised level of immunoglobulins Procedures CONSULT TO IMMUNOLOGY OFFICE/OUTPATIENT [facility] 60-74 MINUTES Christie Phan MD [address] [place] [address] Referral ID Status Reason Start Date Expiration Date V isits Requested Visits Authorized [id number] Closed PCP Requested Referral 03/09/2022 03/09/2023 1 1 Specialty Diagnoses / Procedures Referred By Contac t Referred To Contact NEUROLOGICAL GRAPEVINE Diagnoses Somnolence, daytime Snoring Procedures HOME SLEEP APNEA TEST (HSAT) SLEEP STD AIRFLOW HRT RATE&O2 SAT EFFORT UNATT Christie Phan MD [address] [place], [place] [id number] [facility] [place] [address] [place] [address] Referral ID Status Reason Start Date Expiration Date Visits Requested Visits Authorized [id number] Authorized Auto-Generat ed Referral 2 03/09/2023 1 1 Specialty Diagnoses / Procedures Referred By Contac t Referred To Contact Diagnoses Somnolence, daytime Chronic fatigue and malaise Obesity, unspecified classification, unspecified obesity type, unspecified whether serious comorbidity present Procedures CONSULT TO LIFESTYLE MEDICINE MD OFFICE/OUTPATIENT [facility] 60-74 MINUTES Vera Najera MD [address] [place] [address] [place] [address] Referral ID Status Reason Start Date Expiration Date V isits Requested Visits Authorized [id number] Closed PCP Requested Referral 03/04/2022 03/04/2023 1 1 Specialty Diagnoses / Procedures Referred By Contac t Referred To Contact Diagnoses Somnolence, daytime Snoring Procedures CONSULT TO SLEEP MEDICINE - ADULT OFFICE/OUTPATIENT [facility] 60-74 MINUTES Vera Najera MD [address] [place] [address] [place] [address] Referral ID Status Reason Start Date Expiration Date Visits Requested Visits Authorized [id number] Authorized PCP Requested Referral 2 03/04/2023 1 [...] 2025 9:23am Sacroiliitis February 14, 2025 9:23am Chief Complaint Admit Date FOLLOW UP AFTER SELENE LUMBAR MBB November 9:03am nausea/Burning under left rib December 12, 2024 10:42am reshedule procedure January 17, 2025 10 :29am Back Pain January 31, 2025 10:00am 2 week follow up after RFA January 9:23am Unknown February 26, 2025 7: 30pm Additional Source Comments INFORMATION SOURCE (unrecogn ized section and content) DATE CREATED AUTHOR 09/20/2018 [facility] DATE CREATED AUTHOR AUTHOR'S ORGANIZ ATION 12/10/2018 [facility] DATE CREATED AUTHOR AUTHOR'S ORGANIZ ATION 01/13/2019 [facility] DATE CREATED AUTHOR AUTHOR'S ORGANIZ ATION 06/28/2021 [facility] DATE CREATED AUTHOR AUTHOR'S ORGANIZ ATION 10/01/2022 [facility] DATE CREATED AUTHOR AUTHOR'S ORGANIZ ATION 03/10/2024 [facility] DATE CREATED AUTHOR AUTHOR'S ORGANIZ ATION 07/22/2024 [facility] DATE CREATED AUTHOR AUTHOR'S ORGANIZ ATION 07/28/2024 [facility] Amb[facility] DATE CREATED AUTHOR AUTHOR'S ORGANIZ ATION 02/16/2025 [facility] EPIC DATE CREATED AUTHOR AUTHOR'S ORGANIZ ATION 02/26/2025 [facility] DATE CREATED AUTHOR AUTHOR'S ORGANIZ ATION 03/01/2025 [facility] Reason for Visit (unrecogniz ed section and content) Reason Comments Infection Follow Up Specialty Diagnoses / Procedures Referred By Contac t Referred To Contact Infectious Diseases Diagnoses Positive blood cultures Procedures CONSULT TO INFECTIOUS DISEASES OFFICE/OUTPATIENT NEW HIGH MDM 60 MINUTES Vaibhav Carvalho, MANAGER OF HEALTH.[address] [place] [address] Phone: tel: fax: Referral ID Status Reason Start Date Expiration Date V isits Requested Visits Authorized [id number] Closed PCP Requested Referral 06/13/2024 06/13/2025 1 1 Status Reason Specialty Diagnoses / Procedures Referre d By Contact Referred To Contact [employer] Reason Comments Pain ongoing generalized pain. Reason [...] MDM 60-74 MINUTES Vera Najera MD [address] [place] [address] Referral ID Status Reason Start Date Expiration Date V isits Requested Visits Authorized [id number] Closed PCP Requested Referral 03/04/2022 03/04/2023 1 1 Reason Comments High Total serum IgM Anemia Reason Comments Consult Specialty Diagnoses / Procedures Referred By Contac t Referred To Contact Immunology Diagnoses Raised level of immunoglobulins Procedures CONSULT TO IMMUNOLOGY OFFICE/OUTPATIENT NEW HIGH MDM 60-74 MINUTES Christie Phan MD [address] [place] [address] Referral ID Status Reason Start Date Expiration Date V isits Requested Visits Authorized [id number] Closed PCP Requested Referral 03/09/2022 03/09/2023 1 1 Reason Comments Pneumovax Reason Comments Refill Request Reason Comments Appointment Show Host - Other Reason Comments Future Appointment Scheduling questions /concerns Reason Comments PAP Therapy Follow Up Reason Comments PAP Rx Faxed [facility] [place] Reason Comments Anemia 8 week [...] rate Procedures ECG 12 Lead Michelle Jasmine, MANAGER OF HEALTH-PRINTING GRAY CLOTH TENDER [address] [facility] [address] [place] [address] Referral ID Status Reason Start Date Expiration Date V isits Requested Visits Authorized [id number] Authorized 06/09/2023 06/08/2024 1 1 Reason Comments New Patient Visit Leg Swelling, test r esults from [facility] Specialty Diagnoses / Procedures Referred By Contac t Referred To Contact Diagnoses Paroxysmal supraventricular tachycardia PAC (premature atrial contraction) Procedures ECG 12 Lead Lois Holm MD 703 [facility] 2, [address] [address] Referral ID Status Reason Start Date Expiration Date V isits Requested Visits Authorized [id number] Authorized 07/13/2023 07/12/2024 1 1 Reason Onset [...] Follow-up 02/14/20 [facility] Insurance Authorization 02/14/2024 KELVIN Garcia al Submitted Reason Comments Orders PAP RX. Reason Comments Show Host - Other Eds scheduling Reason Comments Med [...] [facility] Specialty Diagnoses / Procedures Referred By [facility] Referred To Contact Diagnoses Frequent infections Hypogammaglobulinemia (HCC) Bilateral leg weakness Discoid lupus erythematosus Procedures GAMMAGARD LIQUID INJECTION Vera Najera MD [address] [place] [address] Dre Treat [facility] [address] [place] [address] Referral ID Status Reason Start Date Expiration Date V isits Requested Visits Authorized [id number] Authorized 04/03/2024 10/01/2024 7 7 Reason Comments Well Women Visit Reason Onset Date Comments SPP Inflammatory Conditions - Medication Refill 06/06/2024 [facility] Reason Comments Lab Orders Reason Comments Art Therapy Reason Comments Anemia Reason Comments Breath Hydrogen Test SIBO Breath Test Reason Onset Date Comments SPP Inflammatory Conditions - Medication Refill 06/29/2024 [facility] Reason Comments poss raynauds Specialty Diagnoses / Procedures Referred By [facility] Referred To Contact Vascular Surgery Diagnoses Cold extremities Pain of lower extremity, unspecified laterality Gay Enciso, MANAGER OF HEALTH-PRINTING GRAY CLOTH TENDER [address] [facility] [place] [address] Phone: tel:[phone] fax: Hayden Arciniega MD [address] [place] [address] Phone: tel:[phone] fax: Referral ID Status Reason Start Date Expiration Date Visits Requested Visits Authorized [id number] Pending Review Specialty Services Required 03/15/2025 1 [...] Up In Cardiology Lois Holm MD 703 [facility] 2, [facility] [address] [place] [address] Phone: tel: fax: Lois Holm MD [address]03 [facility] 2, [address] [place] [address] Phone: tel: fax: Referral ID Status Reason Start Date Expiration Date V isits Requested Visits Authorized [id number] Authorized 07/13/2023 07/12/2024 1 1 Reason Comments Med Change Request Reason Comments Patient Question Reason Onset Date Comments SPP Inflammatory Conditions - Medication Refill 08/17/2024 [facility] Reason Onset Date Comments Refill Request 09/01/2024 Reason Comments Thyroid Nodule Follow up ultrasound TB 08/24/24 Reason Comments Megaloblastic anemia due to [...] Procedures EST PATIENT Self Ny Lance MD [address] [address] Phone: tel: fax: Referral ID Status Reason Start Date Expiration Date V isits Requested Visits Authorized [id number] Pending Review 09/19/2024 12/18/2024 1 1 Reason Comments Follow-up Reason Comments Hypogammagloblinemia Megablastic anemia OTV Reason Onset Date Comments Results 11/30/2024 Reason Comments Follow-up Suspicious Skin Lesion Reason Comments Consult Pilonidal cyst- Pt h ad a pilonidal cyst and sinus removal about 15 yrs ago- [facility] did procedure. Everything went well and was doing fine until about 2-3 weeks ago. Specialty Diagnoses / Procedures Referred By Contac t Referred To Contact General Surgery Diagnoses Pilonidal cyst Procedures [place] OFFICE/OUTPATIENT NEW HIGH MDM 60 MINUTES Bernabe English MD [address] [place] [address] Phone: tel: fax: Terence Blum MD [address] [place] [address] Phone: tel: fax: Referral ID Status Reason Start Date Expiration Date V isits Requested Visits Authorized [id number] Closed Specialty Services Required 02/14/2025 08/13/2025 1 1 Ordered Prescriptions (unrec ognized section [...] alcohol or drug abuse patient.[facility] Hospital[facility] the event this information is protected by the Federal Confidentiality of Alcohol and Drug Abuse Patient Records regulations: The Federal rules restrict any use of the information to criminally investigate or prosecute any alcohol or drug abuse patient.[facility] HospitalIn the event this information is protected by the Federal Confidentiality of Alcohol and Drug Abuse Patient Records regulations: The Federal rules restrict any use of the information to criminally investigate or prosecute any alcohol or drug abuse patient.[facility] HospitalIn the event this information is protected by the Federal Confidentiality of Alcohol and Drug Abuse Patient Records regulations: The Federal rules restrict any use of the information to criminally investigate or prosecute any alcohol or drug abuse patient.[facility] HospitalIn the event this information is protected by the Federal Confidentiality of Alcohol and Drug Abuse Patient Records regulations: The Federal rules restrict any use of the information to criminally investigate or prosecute any alcohol or drug abuse patient.[facility] HospitalIn the event this information is protected by the Federal Confidentiality of Alcohol and Drug Abuse Patient Records regulations: The Federal rules restrict any use of the information to criminally investigate or prosecute any alcohol or drug abuse patient.[facility] HospitalIn the event this information is protected by the Federal Confidentiality of Alcohol and Drug Abuse Patient Records regulations: The Federal rules restrict any use of the information to criminally investigate or prosecute any alcohol or drug abuse patient.[facility] HospitalIn the event this information is protected by the Federal Confidentiality of Alcohol and Drug Abuse Patient Records regulations: The Federal rules restrict any use of the information to criminally investigate or prosecute any alcohol or drug abuse patient.[facility] HospitalIn the event this information is protected by the Federal Confidentiality of Alcohol and Drug Abuse Patient Records regulations: The Federal rules restrict any use of the information to criminally investigate or prosecute any alcohol or drug abuse patient.[facility] HospitalIn the event this information is protected by the Federal Confidentiality of Alcohol and Drug Abuse Patient Records regulations: The Federal rules restrict any use of the information to criminally investigate or prosecute any alcohol or drug abuse patient.[facility] HospitalIn the event this information is protected by the Federal Confidentiality of Alcohol and Drug Abuse Patient Records regulations: The Federal rules restrict any use of the information to criminally investigate or prosecute any alcohol or drug abuse patient.[facility] HospitalIn the event this information is protected by the Federal Confidentiality of Alcohol and Drug Abuse Patient Records regulations: The Federal rules restrict any use of the information to criminally investigate or prosecute any alcohol or drug abuse patient.[facility] HospitalIn the event this information is protected by the Federal Confidentiality of Alcohol and Drug Abuse Patient Records regulations: The Federal rules restrict any use of the information to criminally investigate or prosecute any alcohol or drug abuse patient.[facility] HospitalIn the event this information is protected by the Federal Confidentiality of Alcohol and Drug Abuse Patient Records regulations: The Federal rules restrict any use of the information to criminally investigate or prosecute any alcohol or drug abuse patient.[facility] HospitalIn the event this information is protected by the Federal Confidentiality of Alcohol and Drug Abuse Patient Records regulations: The Federal rules restrict any use of the information to criminally investigate or prosecute any alcohol or drug abuse patient.[facility] HospitalIn the event this information is protected by the Federal Confidentiality of Alcohol and Drug Abuse Patient Records regulations: The Federal rules restrict any use of the information to criminally investigate or prosecute any alcohol or drug abuse patient.[facility] HospitalIn the event this information is protected by the Federal Confidentiality of Alcohol and Drug Abuse Patient Records regulations: The Federal rules restrict any use of the information to criminally investigate or prosecute any alcohol or drug abuse patient.[facility] HospitalIn the event this information is protected by the Federal Confidentiality of Alcohol and Drug Abuse Patient Records regulations: The Federal rules restrict any use of the information to criminally investigate or prosecute any alcohol or drug abuse patient.[facility] HospitalIn the event this information is protected by the Federal Confidentiality of Alcohol and Drug Abuse Patient Records regulations: The Federal rules restrict any use of the information to criminally investigate or prosecute any alcohol or drug abuse patient.[facility] HospitalIn the event this information is protected by the Federal Confidentiality of Alcohol and Drug Abuse Patient Records regulations: The Federal rules restrict any use of the information to criminally investigate or prosecute any alcohol or drug abuse patient.[facility] HospitalIn the event this information is protected by the Federal Confidentiality of Alcohol and Drug Abuse Patient Records regulations: The Federal rules restrict any use of the information to criminally investigate or prosecute any alcohol or drug abuse patient.[facility] HospitalIn the event this information is protected by the Federal Confidentiality of Alcohol and Drug Abuse Patient Records regulations: The Federal rules restrict any use of the information to criminally investigate or prosecute any alcohol or drug abuse patient.[facility] HospitalIn the event this information is protected by the Federal Confidentiality of Alcohol and Drug Abuse Patient Records regulations: The Federal rules restrict any use of the information to criminally investigate or prosecute any alcohol or drug abuse patient.[facility] HospitalIn the event this information is protected by the Federal Confidentiality of Alcohol and Drug Abuse Patient Records regulations: The Federal rules restrict any use of the information to criminally investigate or prosecute any alcohol or drug abuse patient.[facility] HospitalIn the event this information is protected by the Federal Confidentiality of Alcohol and Drug Abuse Patient Records regulations: The Federal rules restrict any use of the information to criminally investigate or prosecute any alcohol or drug abuse patient.[facility] HospitalIn the event this information is protected by the Federal Confidentiality of Alcohol and Drug Abuse Patient Records regulations: The Federal rules restrict any use of the information to criminally investigate or prosecute any alcohol or drug abuse patient.[facility] HospitalIn the event this information is protected by the Federal Confidentiality of Alcohol and Drug Abuse Patient Records regulations: The Federal rules restrict any use of the information to criminally investigate or prosecute any alcohol or drug abuse patient.[facility] HospitalIn the event this information is protected by the Federal Confidentiality of Alcohol and Drug Abuse Patient Records regulations: The Federal rules restrict any use of the information to criminally investigate or prosecute any alcohol or drug abuse patient.[facility] HospitalIn the event this information is protected by the Federal Confidentiality of Alcohol and Drug Abuse Patient Records regulations: The Federal rules restrict any use of the information to criminally investigate or prosecute any alcohol or drug abuse patient.[facility] HospitalIn the event this information is protected by the Federal Confidentiality of Alcohol and Drug Abuse Patient Records regulations: The Federal rules restrict any use of the information to criminally investigate or prosecute any alcohol or drug abuse patient.[facility] HospitalIn the event this information is protected by the Federal Confidentiality of Alcohol and Drug Abuse Patient Records regulations: The Federal rules restrict any use of the information to criminally investigate or prosecute any alcohol or drug abuse patient.[facility] HospitalIn the event this information is protected by the Federal Confidentiality of Alcohol and Drug Abuse Patient Records regulations: The Federal rules restrict any use of the information to criminally investigate or prosecute any alcohol or drug abuse patient.[facility] HospitalIn the event this information is protected by the Federal Confidentiality of Alcohol and Drug Abuse Patient Records regulations: The Federal rules restrict any use of the information to criminally investigate or prosecute any alcohol or drug abuse patient.[facility] HospitalIn the event this information is protected by the Federal Confidentiality of Alcohol and Drug Abuse Patient Records regulations: The Federal rules restrict any use of the information to criminally investigate or prosecute any alcohol or drug abuse patient.[facility] HospitalIn the event this information is protected by the Federal Confidentiality of Alcohol and Drug Abuse Patient Records regulations: The Federal rules restrict any use of the information to criminally investigate or prosecute any alcohol or drug abuse patient.[facility] HospitalIn the event this information is protected by the Federal Confidentiality of Alcohol and Drug Abuse Patient Records regulations: The Federal rules restrict any use of the information to criminally investigate or prosecute any alcohol or drug abuse patient.[facility] HospitalIn the event this information is protected by the Federal Confidentiality of Alcohol and Drug Abuse Patient Records regulations: The Federal rules restrict any use of the information to criminally investigate or prosecute any alcohol or drug abuse patient.[facility] HospitalIn the event this information is protected by the Federal Confidentiality of Alcohol and Drug Abuse Patient Records regulations: The Federal rules restrict any use of the information to criminally investigate or prosecute any alcohol or drug abuse patient.[facility] HospitalIn the event this information is protected by the Federal Confidentiality of Alcohol and Drug Abuse Patient Records regulations: The Federal rules restrict any use of the information to criminally investigate or prosecute any alcohol or drug abuse patient.[facility] HospitalIn the event this information is protected by the Federal Confidentiality of Alcohol and Drug Abuse Patient Records regulations: The Federal rules restrict any use of the information to criminally investigate or prosecute any alcohol or drug abuse patient.[facility] HospitalIn the event this information is protected by the Federal Confidentiality of Alcohol and Drug Abuse Patient Records regulations: The Federal rules restrict any use of the information to criminally investigate or prosecute any alcohol or drug abuse patient.[facility] HospitalIn the event this information is protected by the Federal Confidentiality of Alcohol and Drug Abuse Patient Records regulations: The Federal rules restrict any use of the information to criminally investigate or prosecute any alcohol or drug abuse patient.[facility] HospitalIn the event this information is protected by the Federal Confidentiality of Alcohol and Drug Abuse Patient Records regulations: The Federal rules restrict any use of the information to criminally investigate or prosecute any alcohol or drug abuse patient.[facility] HospitalIn the event this information is protected by the Federal Confidentiality of Alcohol and Drug Abuse Patient Records regulations: The Federal rules restrict any use of the information to criminally investigate or prosecute any alcohol or drug abuse patient.[facility] HospitalIn the event this information is protected by the Federal Confidentiality of Alcohol and Drug Abuse Patient Records regulations: The Federal rules restrict any use of the information to criminally investigate or prosecute any alcohol or drug abuse patient.[facility] HospitalIn the event this information is protected by the Federal Confidentiality of Alcohol and Drug Abuse Patient Records regulations: The Federal rules restrict any use of the information to criminally investigate or prosecute any alcohol or drug abuse patient.[facility] HospitalIn the event this information is protected by the Federal Confidentiality of Alcohol and Drug Abuse Patient Records regulations: The Federal rules restrict any use of the information to criminally investigate or prosecute any alcohol or drug abuse patient.[facility] HospitalIn the event this information is protected by the Federal Confidentiality of Alcohol and Drug Abuse Patient Records regulations: The Federal rules restrict any use of the information to criminally investigate or prosecute any alcohol or drug abuse patient.[facility] HospitalIn the event this information is protected by the Federal Confidentiality of Alcohol and Drug Abuse Patient Records regulations: The Federal rules restrict any use of the information to criminally investigate or prosecute any alcohol or drug abuse patient.[facility] HospitalIn the event this information is protected by the Federal Confidentiality of Alcohol and Drug Abuse Patient Records regulations: The Federal rules restrict any use of the information to criminally investigate or prosecute any alcohol or drug abuse patient.[facility] HospitalIn the event this information is protected by the Federal Confidentiality of Alcohol and Drug Abuse Patient Records regulations: The Federal rules restrict any use of the information to criminally investigate or prosecute any alcohol or drug abuse patient.[facility] HospitalIn the event this information is protected by the Federal Confidentiality of Alcohol and Drug Abuse Patient Records regulations: The Federal rules restrict any use of the information to criminally investigate or prosecute any alcohol or drug abuse patient.[facility] HospitalIn the event this information is protected by the Federal Confidentiality of Alcohol and Drug Abuse Patient Records regulations: The Federal rules restrict any use of the information to criminally investigate or prosecute any alcohol or drug abuse patient.[facility] HospitalIn the event this information is protected by the Federal Confidentiality of Alcohol and Drug Abuse Patient Records regulations: The Federal rules restrict any use of the information to criminally investigate or prosecute any alcohol or drug abuse patient.[facility] HospitalIn the event this information is protected by the Federal Confidentiality of Alcohol and Drug Abuse Patient Records regulations: The Federal rules restrict any use of the information to criminally investigate or prosecute any alcohol or drug abuse patient.[facility] HospitalIn the event this information is protected by the Federal Confidentiality of Alcohol and Drug Abuse Patient Records regulations: The Federal rules restrict any use of the information to criminally investigate or prosecute any alcohol or drug abuse patient.[facility] HospitalIn the event this information is protected by the Federal Confidentiality of Alcohol and Drug Abuse Patient Records regulations: The Federal rules restrict any use of the information to criminally investigate or prosecute any alcohol or drug abuse patient.[facility] HospitalIn the event this information is protected by the Federal Confidentiality of Alcohol and Drug Abuse Patient Records regulations: The Federal rules restrict any use of the information to criminally investigate or prosecute any alcohol or drug abuse patient.[facility] HospitalIn the event this information is protected by the Federal Confidentiality of Alcohol and Drug Abuse Patient Records regulations: The Federal rules restrict any use of the information to criminally investigate or prosecute any alcohol or drug abuse patient.[facility] HospitalIn the event this information is protected by the Federal Confidentiality of Alcohol and Drug Abuse Patient Records regulations: The Federal rules restrict any use of the information to criminally investigate or prosecute any alcohol or drug abuse patient.[facility] HospitalIn the event this information is protected by the Federal Confidentiality of Alcohol and Drug Abuse Patient Records regulations: The Federal rules restrict any use of the information to criminally investigate or prosecute any alcohol or drug abuse patient.[facility] HospitalIn the event this information is protected by the Federal Confidentiality of Alcohol and Drug Abuse Patient Records regulations: The Federal rules restrict any use of the information to criminally investigate or prosecute any alcohol or drug abuse patient.[facility] HospitalIn the event this information is protected by the Federal Confidentiality of Alcohol and Drug Abuse Patient Records regulations: The Federal rules restrict any use of the information to criminally investigate or prosecute any alcohol or drug abuse patient.[facility] HospitalIn the event this information is protected by the Federal Confidentiality of Alcohol and Drug Abuse Patient Records regulations: The Federal rules restrict any use of the information to criminally investigate or prosecute any alcohol or drug abuse patient.[facility] HospitalIn the event this information is protected by the Federal Confidentiality of Alcohol and Drug Abuse Patient Records regulations: The Federal rules restrict any use of the information to criminally investigate or prosecute any alcohol or drug abuse patient.[facility] HospitalIn the event this information is protected by the Federal Confidentiality of Alcohol and Drug Abuse Patient Records regulations: The Federal rules restrict any use of the information to criminally investigate or prosecute any alcohol or drug abuse patient.[facility] HospitalIn the event this information is protected by the Federal Confidentiality of Alcohol and Drug Abuse Patient Records regulations: The Federal rules restrict any use of the information to criminally investigate or prosecute any alcohol or drug abuse patient.[facility] HospitalIn the event this information is protected by the Federal Confidentiality of Alcohol and Drug Abuse Patient Records regulations: The Federal rules restrict any use of the information to criminally investigate or prosecute any alcohol or drug abuse patient.[facility] HospitalIn the event this information is protected by the Federal Confidentiality of Alcohol and Drug Abuse Patient Records regulations: The Federal rules restrict any use of the information to criminally investigate or prosecute any alcohol or drug abuse patient.[facility] HospitalIn the event this information is protected by the Federal Confidentiality of Alcohol and Drug Abuse Patient Records regulations: The Federal rules restrict any use of the information to criminally investigate or prosecute any alcohol or drug abuse patient.[facility] HospitalIn the event this information is protected by the Federal Confidentiality of Alcohol and Drug Abuse Patient Records regulations: The Federal rules restrict any use of the information to criminally investigate or prosecute any alcohol or drug abuse patient.[facility] HospitalIn the event this information is protected by the Federal Confidentiality of Alcohol and Drug Abuse Patient Records regulations: The Federal rules restrict any use of the information to criminally investigate or prosecute any alcohol or drug abuse patient.[facility] HospitalIn the event this information is protected by the Federal Confidentiality of Alcohol and Drug Abuse Patient Records regulations: The Federal rules restrict any use of the information to criminally investigate or prosecute any alcohol or drug abuse patient.[facility] HospitalIn the event this information is protected by the Federal Confidentiality of Alcohol and Drug Abuse Patient Records regulations: The Federal rules restrict any use of the information to criminally investigate or prosecute any alcohol or drug abuse patient.[facility] HospitalIn the event this information is protected by the Federal Confidentiality of Alcohol and Drug Abuse Patient Records regulations: The Federal rules restrict any use of the information to criminally investigate or prosecute any alcohol or drug abuse patient.[facility] HospitalIn the event this information is protected by the Federal Confidentiality of Alcohol and Drug Abuse Patient Records regulations: The Federal rules restrict any use of the information to criminally investigate or prosecute any alcohol or drug abuse patient.[facility] HospitalIn the event this information is protected by the Federal Confidentiality of Alcohol and Drug Abuse Patient Records regulations: The Federal rules restrict any use of the information to criminally investigate or prosecute any alcohol or drug abuse patient.[facility] HospitalIn the event this information is protected by the Federal Confidentiality of Alcohol and Drug Abuse Patient Records regulations: The Federal rules restrict any use of the information to criminally investigate or prosecute any alcohol or drug abuse patient.[facility] HospitalIn the event this information is protected by the Federal Confidentiality of Alcohol and Drug Abuse Patient Records regulations: The Federal rules restrict any use of the information to criminally investigate or prosecute any alcohol or drug abuse patient.[facility] HospitalIn the event this information is protected by the Federal Confidentiality of Alcohol and Drug Abuse Patient Records regulations: The Federal rules restrict any use of the information to criminally investigate or prosecute any alcohol or drug abuse patient.[facility] HospitalIn the event this information is protected by the Federal Confidentiality of Alcohol and Drug Abuse Patient Records regulations: The Federal rules restrict any use of the information to criminally investigate or prosecute any alcohol or drug abuse patient.[facility] HospitalIn the event this information is protected by the Federal Confidentiality of Alcohol and Drug Abuse Patient Records regulations: The Federal rules restrict any use of the information to criminally investigate or prosecute any alcohol or drug abuse patient.[facility] HospitalIn the event this information is protected by the Federal Confidentiality of Alcohol and Drug Abuse Patient Records regulations: The Federal rules restrict any use of the information to criminally investigate or prosecute any alcohol or drug abuse patient.[facility] HospitalIn the event this information is protected by the Federal Confidentiality of Alcohol and Drug Abuse Patient Records regulations: The Federal rules restrict any use of the information to criminally investigate or prosecute any alcohol or drug abuse patient.[facility] HospitalIn the event this information is protected by the Federal Confidentiality of Alcohol and Drug Abuse Patient Records regulations: The Federal rules restrict any use of the information to criminally investigate or prosecute any alcohol or drug abuse patient.[facility] HospitalIn the event this information is protected by the Federal Confidentiality of Alcohol and Drug Abuse Patient Records regulations: The Federal rules restrict any use of the information to criminally investigate or prosecute any alcohol or drug abuse patient.[facility] HospitalIn the event this information is protected by the Federal Confidentiality of Alcohol and Drug Abuse Patient Records regulations: The Federal rules restrict any use of the information to criminally investigate or prosecute any alcohol or drug abuse patient.[facility] HospitalIn the event this information is protected by the Federal Confidentiality of Alcohol and Drug Abuse Patient Records regulations: The Federal rules restrict any use of the information to criminally investigate or prosecute any alcohol or drug abuse patient.[facility] HospitalIn the event this information is protected by the Federal Confidentiality of Alcohol and Drug Abuse Patient Records regulations: The Federal rules restrict any use of the information to criminally investigate or prosecute any alcohol or drug abuse patient.[facility] HospitalIn the event this information is protected by the Federal Confidentiality of Alcohol and Drug Abuse Patient Records regulations: The Federal rules restrict any use of the information to criminally investigate or prosecute any alcohol or drug abuse patient.[facility] HospitalIn the event this information is protected by the Federal Confidentiality of Alcohol and Drug Abuse Patient Records regulations: The Federal rules restrict any use of the information to criminally investigate or prosecute any alcohol or drug abuse patient.[facility] HospitalIn the event this information is protected by the Federal Confidentiality of Alcohol and Drug Abuse Patient Records regulations: The Federal rules restrict any use of the information to criminally investigate or prosecute any alcohol or drug abuse patient.[facility] HospitalIn the event this information is protected by the Federal Confidentiality of Alcohol and Drug Abuse Patient Records regulations: The Federal rules restrict any use of the information to criminally investigate or prosecute any alcohol or drug abuse patient.[facility] HospitalIn the event this information is protected by the Federal Confidentiality of Alcohol and Drug Abuse Patient Records regulations: The Federal rules restrict any use of the information to criminally investigate or prosecute any alcohol or drug abuse patient.[facility] HospitalIn the event this information is protected by the Federal Confidentiality of Alcohol and Drug Abuse Patient Records regulations: The Federal rules restrict any use of the information to criminally investigate or prosecute any alcohol or drug abuse patient.[facility] HospitalIn the event this information is protected by the Federal Confidentiality of Alcohol and Drug Abuse Patient Records regulations: The Federal rules restrict any use of the information to criminally investigate or prosecute any alcohol or drug abuse patient.[facility] HospitalIn the event this information is protected by the Federal Confidentiality of Alcohol and Drug Abuse Patient Records regulations: The Federal rules restrict any use of the information to criminally investigate or prosecute any alcohol or drug abuse patient.[facility] HospitalIn the event this information is protected by the Federal Confidentiality of Alcohol and Drug Abuse Patient Records regulations: The Federal rules restrict any use of the information to criminally investigate or prosecute any alcohol or drug abuse patient.[facility] HospitalIn the event this information is protected by the Federal Confidentiality of Alcohol and Drug Abuse Patient Records regulations: The Federal rules restrict any use of the information to criminally investigate or prosecute any alcohol or drug abuse patient.[facility] HospitalIn the event this information is protected by the Federal Confidentiality of Alcohol and Drug Abuse Patient Records regulations: The Federal rules restrict any use of the information to criminally investigate or prosecute any alcohol or drug abuse patient.[facility] HospitalIn the event this information is protected by the Federal Confidentiality of Alcohol and Drug Abuse Patient Records regulations: The Federal rules restrict any use of the information to criminally investigate or prosecute any alcohol or drug abuse patient.[facility] HospitalIn the event this information is protected by the Federal Confidentiality of Alcohol and Drug Abuse Patient Records regulations: The Federal rules restrict any use of the information to criminally investigate or prosecute any alcohol or drug abuse patient.[facility] HospitalIn the event this information is protected by the Federal Confidentiality of Alcohol and Drug Abuse Patient Records regulations: The Federal rules restrict any use of the information to criminally investigate or prosecute any alcohol or drug abuse patient.[facility] HospitalIn the event this information is protected by the Federal Confidentiality of Alcohol and Drug Abuse Patient Records regulations: The Federal rules restrict any use of the information to criminally investigate or prosecute any alcohol or drug abuse patient.[facility] HospitalIn the event this information is protected by the Federal Confidentiality of Alcohol and Drug Abuse Patient Records regulations: The Federal rules restrict any use of the information to criminally investigate or prosecute any alcohol or drug abuse patient.[facility] HospitalIn the event this information is protected by the Federal Confidentiality of Alcohol and Drug Abuse Patient Records regulations: The Federal rules restrict any use of the information to criminally investigate or prosecute any alcohol or drug abuse patient.[facility] HospitalIn the event this information is protected by the Federal Confidentiality of Alcohol and Drug Abuse Patient Records regulations: The Federal rules restrict any use of the information to criminally investigate or prosecute any alcohol or drug abuse patient.[facility] HospitalIn the event this information is protected by the Federal Confidentiality of Alcohol and Drug Abuse Patient Records regulations: The Federal rules restrict any use of the information to criminally investigate or prosecute any alcohol or drug abuse patient.[facility] HospitalIn the event this information is protected by the Federal Confidentiality of Alcohol and Drug Abuse Patient Records regulations: The Federal rules restrict any use of the information to criminally investigate or prosecute any alcohol or drug abuse patient.[facility] HospitalIn the event this information is protected by the Federal Confidentiality of Alcohol and Drug Abuse Patient Records regulations: The Federal rules restrict any use of the information to criminally investigate or prosecute any alcohol or drug abuse patient.[facility] HospitalIn the event this information is protected by the Federal Confidentiality of Alcohol and Drug Abuse Patient Records regulations: The Federal rules restrict any use of the information to criminally investigate or prosecute any alcohol or drug abuse patient.[facility] HospitalIn the event this information is protected by the Federal Confidentiality of Alcohol and Drug Abuse Patient Records regulations: The Federal rules restrict any use of the information to criminally investigate or prosecute any alcohol or drug abuse patient.[facility] HospitalIn the event this information is protected by the Federal Confidentiality of Alcohol and Drug Abuse Patient Records regulations: The Federal rules restrict any use of the information to criminally investigate or prosecute any alcohol or drug abuse patient.[facility] HospitalIn the event this information is protected by the Federal Confidentiality of Alcohol and Drug Abuse Patient Records regulations: The Federal rules restrict any use of the information to criminally investigate or prosecute any alcohol or drug abuse patient.[facility] HospitalIn the event this information is protected by the Federal Confidentiality of Alcohol and Drug Abuse Patient Records regulations: The Federal rules restrict any use of the information to criminally investigate or prosecute any alcohol or drug abuse patient.[facility] HospitalIn the event this information is protected by the Federal Confidentiality of Alcohol and Drug Abuse Patient Records regulations: The Federal rules restrict any use of the information to criminally investigate or prosecute any alcohol or drug abuse patient.[facility] HospitalIn the event this information is protected by the Federal Confidentiality of Alcohol and Drug Abuse Patient Records regulations: The Federal rules restrict any use of the information to criminally investigate or prosecute any alcohol or drug abuse patient.[facility] HospitalIn the event this information is protected by the Federal Confidentiality of Alcohol and Drug Abuse Patient Records regulations: The Federal rules restrict any use of the information to criminally investigate or prosecute any alcohol or drug abuse patient.[facility] HospitalIn the event this information is protected by the Federal Confidentiality of Alcohol and Drug Abuse Patient Records regulations: The Federal rules restrict any use of the information to criminally investigate or prosecute any alcohol or drug abuse patient.[facility] HospitalIn the event this information is protected by the Federal Confidentiality of Alcohol and Drug Abuse Patient Records regulations: The Federal rules restrict any use of the information to criminally investigate or prosecute any alcohol or drug abuse patient.[facility] HospitalIn the event this information is protected by the Federal Confidentiality of Alcohol and Drug Abuse Patient Records regulations: The Federal rules restrict any use of the information to criminally investigate or prosecute any alcohol or drug abuse patient.[facility] HospitalIn the event this information is protected by the Federal Confidentiality of Alcohol and Drug Abuse Patient Records regulations: The Federal rules restrict any use of the information to criminally investigate or prosecute any alcohol or drug abuse patient.[facility] HospitalIn the event this information is protected by the Federal Confidentiality of Alcohol and Drug Abuse Patient Records regulations: The Federal rules restrict any use of the information to criminally investigate or prosecute any alcohol or drug abuse patient.[facility] HospitalIn the event this information is protected by the Federal Confidentiality of Alcohol and Drug Abuse Patient Records regulations: The Federal rules restrict any use of the information to criminally investigate or prosecute any alcohol or drug abuse patient.[facility] HospitalIn the event this information is protected by the Federal Confidentiality of Alcohol and Drug Abuse Patient Records regulations: The Federal rules restrict any use of the information to criminally investigate or prosecute any alcohol or drug abuse patient.[facility] HospitalIn the event this information is protected by the Federal Confidentiality of Alcohol and Drug Abuse Patient Records regulations: The Federal rules restrict any use of the information to criminally investigate or prosecute any alcohol or drug abuse patient.[facility] HospitalIn the event this information is protected by the Federal Confidentiality of Alcohol and Drug Abuse Patient Records regulations: The Federal rules restrict any use of the information to criminally investigate or prosecute any alcohol or drug abuse patient.[facility] HospitalIn the event this information is protected by the Federal Confidentiality of Alcohol and Drug Abuse Patient Records regulations: The Federal rules restrict any use of the information to criminally investigate or prosecute any alcohol or drug abuse patient.[facility] HospitalIn the event this information is protected by the Federal Confidentiality of Alcohol and Drug Abuse Patient Records regulations: The Federal rules restrict any use of the information to criminally investigate or prosecute any alcohol or drug abuse patient.[facility] HospitalIn the event this information is protected by the Federal Confidentiality of Alcohol and Drug Abuse Patient Records regulations: The Federal rules restrict any use of the information to criminally investigate or prosecute any alcohol or drug abuse patient.[facility] HospitalIn the event this information is protected by the Federal Confidentiality of Alcohol and Drug Abuse Patient Records regulations: The Federal rules restrict any use of the information to criminally investigate or prosecute any alcohol or drug abuse patient.[facility] HospitalIn the event this information is protected by the Federal Confidentiality of Alcohol and Drug Abuse Patient Records regulations: The Federal rules restrict any use of the information to criminally investigate or prosecute any alcohol or drug abuse patient.[facility] HospitalIn the event this information is protected by the Federal Confidentiality of Alcohol and Drug Abuse Patient Records regulations: The Federal rules restrict any use of the information to criminally investigate or prosecute any alcohol or drug abuse patient.[facility] HospitalIn the event this information is protected by the Federal Confidentiality of Alcohol and Drug Abuse Patient Records regulations: The Federal rules restrict any use of the information to criminally investigate or prosecute any alcohol or drug abuse patient.[facility] HospitalIn the event this information is protected by the Federal Confidentiality of Alcohol and Drug Abuse Patient Records regulations: The Federal rules restrict any use of the information to criminally investigate or prosecute any alcohol or drug abuse patient.[facility] HospitalIn the event this information is protected by the Federal Confidentiality of Alcohol and Drug Abuse Patient Records regulations: The Federal rules restrict any use of the information to criminally investigate or prosecute any alcohol or drug abuse patient.[facility] HospitalIn the event this information is protected by the Federal Confidentiality of Alcohol and Drug Abuse Patient Records regulations: The Federal rules restrict any use of the information to criminally investigate or prosecute any alcohol or drug abuse patient.[facility] HospitalIn the event this information is protected by the Federal Confidentiality of Alcohol and Drug Abuse Patient Records regulations: The Federal rules restrict any use of the information to criminally investigate or prosecute any alcohol or drug abuse patient.[facility] HospitalIn the event this information is protected by the Federal Confidentiality of Alcohol and Drug Abuse Patient Records regulations: The Federal rules restrict any use of the information to criminally investigate or prosecute any alcohol or drug abuse patient.[facility] HospitalIn the event this information is protected by the Federal Confidentiality of Alcohol and Drug Abuse Patient Records regulations: The Federal rules restrict any use of the information to criminally investigate or prosecute any alcohol or drug abuse patient.[facility] HospitalIn the event this information is protected by the Federal Confidentiality of Alcohol and Drug Abuse Patient Records regulations: The Federal rules restrict any use of the information to criminally investigate or prosecute any alcohol or drug abuse patient.[facility] HospitalIn the event this information is protected by the Federal Confidentiality of Alcohol and Drug Abuse Patient Records regulations: The Federal rules restrict any use of the information to criminally investigate or prosecute any alcohol or drug abuse patient.[facility] HospitalIn the event this information is protected by the Federal Confidentiality of Alcohol and Drug Abuse Patient Records regulations: The Federal rules restrict any use of the information to criminally investigate or prosecute any alcohol or drug abuse patient.[facility] HospitalIn the event this information is protected by the Federal Confidentiality of Alcohol and Drug Abuse Patient Records regulations: The Federal rules restrict any use of the information to criminally investigate or prosecute any alcohol or drug abuse patient.[facility] HospitalIn the event this information is protected by the Federal Confidentiality of Alcohol and Drug Abuse Patient Records regulations: The Federal rules restrict any use of the information to criminally investigate or prosecute any alcohol or drug abuse patient.[facility] HospitalIn the event this information is protected by the Federal Confidentiality of Alcohol and Drug Abuse Patient Records regulations: The Federal rules restrict any use of the information to criminally investigate or prosecute any alcohol or drug abuse patient.[facility] HospitalIn the event this information is protected by the Federal Confidentiality of Alcohol and Drug Abuse Patient Records regulations: The Federal rules restrict any use of the information to criminally investigate or prosecute any alcohol or drug abuse patient.[facility] HospitalIn the event this information is protected by the Federal Confidentiality of Alcohol and Drug Abuse Patient Records regulations: The Federal rules restrict any use of the information to criminally investigate or prosecute any alcohol or drug abuse patient.[facility] HospitalIn the event this information is protected by the Federal Confidentiality of Alcohol and Drug Abuse Patient Records regulations: The Federal rules restrict any use of the information to criminally investigate or prosecute any alcohol or drug abuse patient.[facility] HospitalIn the event this information is protected by the Federal Confidentiality of Alcohol and Drug Abuse Patient Records regulations: The Federal rules restrict any use of the information to criminally investigate or prosecute any alcohol or drug abuse patient.[facility] HospitalIn the event this information is protected by the Federal Confidentiality of Alcohol and Drug Abuse Patient Records regulations: The Federal rules restrict any use of the information to criminally investigate or prosecute any alcohol or drug abuse patient.[facility] HospitalIn the event this information is protected by the Federal Confidentiality of Alcohol and Drug Abuse Patient Records regulations: The Federal rules restrict any use of the information to criminally investigate or prosecute any alcohol or drug abuse patient.[facility] HospitalIn the event this information is protected by the Federal Confidentiality of Alcohol and Drug Abuse Patient Records regulations: The Federal rules restrict any use of the information to criminally investigate or prosecute any alcohol or drug abuse patient.[facility] HospitalIn the event this information is protected by the Federal Confidentiality of Alcohol and Drug Abuse Patient Records regulations: The Federal rules restrict any use of the information to criminally investigate or prosecute any alcohol or drug abuse patient.[facility] HospitalIn the event this information is protected by the Federal Confidentiality of Alcohol and Drug Abuse Patient Records regulations: The Federal rules restrict any use of the information to criminally investigate or prosecute any alcohol or drug abuse patient.[facility] HospitalIn the event this information is protected by the Federal Confidentiality of Alcohol and Drug Abuse Patient Records regulations: The Federal rules restrict any use of the information to criminally investigate or prosecute any alcohol or drug abuse patient.[facility] HospitalIn the event this information is protected by the Federal Confidentiality of Alcohol and Drug Abuse Patient Records regulations: The Federal rules restrict any use of the information to criminally investigate or prosecute any alcohol or drug abuse patient.[facility] HospitalIn the event this information is protected by the Federal Confidentiality of Alcohol and Drug Abuse Patient Records regulations: The Federal rules restrict any use of the information to criminally investigate or prosecute any alcohol or drug abuse patient.[facility] HospitalIn the event this information is protected by the Federal Confidentiality of Alcohol and Drug Abuse Patient Records regulations: The Federal rules restrict any use of the information to criminally investigate or prosecute any alcohol or drug abuse patient.[facility] HospitalIn the event this information is protected by the Federal Confidentiality of Alcohol and Drug Abuse Patient Records regulations: The Federal rules restrict any use of the information to criminally investigate or prosecute any alcohol or drug abuse patient.[facility] HospitalIn the event this information is protected by the Federal Confidentiality of Alcohol and Drug Abuse Patient Records regulations: The Federal rules restrict any use of the information to criminally investigate or prosecute any alcohol or drug abuse patient.[facility] HospitalIn the event this information is protected by the Federal Confidentiality of Alcohol and Drug Abuse Patient Records regulations: The Federal rules restrict any use of the information to criminally investigate or prosecute any alcohol or drug abuse patient.[facility] HospitalIn the event this information is protected by the Federal Confidentiality of Alcohol and Drug Abuse Patient Records regulations: The Federal rules restrict any use of the information to criminally investigate or prosecute any alcohol or drug abuse patient.[facility] HospitalIn the event this information is protected by the Federal Confidentiality of Alcohol and Drug Abuse Patient Records regulations: The Federal rules restrict any use of the information to criminally investigate or prosecute any alcohol or drug abuse patient.[facility] HospitalIn the event this information is protected by the Federal Confidentiality of Alcohol and Drug Abuse Patient Records regulations: The Federal rules restrict any use of the information to criminally investigate or prosecute any alcohol or drug abuse patient.[facility] HospitalIn the event this information is protected by the Federal Confidentiality of Alcohol and Drug Abuse Patient Records regulations: The Federal rules restrict any use of the information to criminally investigate or prosecute any alcohol or drug abuse patient.[facility] HospitalIn the event this information is protected by the Federal Confidentiality of Alcohol and Drug Abuse Patient Records regulations: The Federal rules restrict any use of the information to criminally investigate or prosecute any alcohol or drug abuse patient.[facility] HospitalIn the event this information is protected by the Federal Confidentiality of Alcohol and Drug Abuse Patient Records regulations: The Federal rules restrict any use of the information to criminally investigate or prosecute any alcohol or drug abuse patient.[facility] the event this information is protected by the Federal Confidentiality of Alcohol and Drug Abuse Patient Records regulations: The Federal rules restrict any use of the information to criminally investigate or prosecute any alcohol or drug abuse patient.[facility] Hospital[facility] the event this information is protected by the Federal Confidentiality of Alcohol and Drug Abuse Patient Records regulations: The Federal rules restrict any use of the information to criminally investigate or prosecute any alcohol or drug abuse patient.[facility] Care Teams (unrecognized sec tion [...] Galloway Primary Care Provider Active Start: November 22, 2024 Janes Barfield MD Attending Provider Active Start: November 22, 2024 Team Status: Inactive Member Role Status Dates Gay Enciso BATTERY CHARGER TESTER-C Primary Care Provider Active Start: November 30, 2024 End: November 30, 2024 Margie Arnett BATTERY CHARGER TESTER Attending Provider Active Start: November 30, 2024 End: November 30, 2024 Team Status: Inactive Member Role Status Dates Gay Enciso BATTERY CHARGER TESTER-C Primary Care Provider Active Start: December 12, 2024 End: December 12, 2024 Bandar Portillo APRN Attending Provider Active Start: December 12, 2024 End: December 12, 2024 Team Status: Inactive Member Role Status Dates Gay Enciso BATTERY CHARGER TESTER-C Primary Care Provider Active Start: January 17, 2025 End: January 17, 2025 Margie Arnett BATTERY CHARGER TESTER Attending Provider Active Start: January 17, 2025 End: January 17, 2025 Team Status: Active Member Role Status Dates Gay Enciso BATTERY CHARGER TESTER-C Primary Care Provider Active Start: January 31, 2025 Adolfo Kang MD Attending Provider Active Sta rt: January 31, 2025 Adolfo Kang MD Other Provider Active Start: January 31, 2025 Team Status: Inactive Member Role Status Dates Gay Enciso BATTERY CHARGER TESTER-C Primary Care Provider Active Start: February 14, 2025 End: February 14, 2025 Margie Arnett BATTERY CHARGER TESTER Attending Provider Active Start: February 14, 2025 [...] November 04, 2023 End: November 04, 2023 Spinner Continuous Relationship Specialty Start Date End Date Gay Enciso, MANAGER OF HEALTH.PRINTING GRAY CLOTH TENDER [address] [place] [address] PCP - General Family Practice 10/24/21 Spinner Continuous Relationship Specialty Start Date End Date Gay Enciso, MANAGER OF HEALTH.PRINTING GRAY CLOTH TENDER [address] [place] [address] PCP - General Family Medicine 10/24/21 Manuel Ferris MD [address] [place] [address] Referring Family Medicine 02/12/22 Spinner Continuous Relationship Specialty Start Date End Date Manuel Ferris MD [address] [place] [address] PCP - General Family Medicine 02/27/22 Manuel Ferris MD [address] [facility] [place] [address] Referring Family Medicine 02/12/22 Spinner Continuous Relationship Specialty Start Date End Date Manuel Ferris MD [address] [place] [address] PCP - General Family Medicine 02/27/22 Manuel Ferris MD [address] [place] [facility] [place] [address] Referring Family Medicine 02/12/22 Spinner Continuous Relationship Specialty Start Date End Date Manuel Ferris MD [address] [place] [facility] [place] [address] PCP - General Family Medicine 02/27/22 Manuel Ferris MD [address] [facility] [place] [address] Referring Family Medicine 02/12/22 Spinner Continuous Relationship Specialty Start Date End Date Manuel Ferris MD [address] [place] [facility] [address] PCP - General Family Medicine 02/27/22 Manuel Ferris MD [address] [place] [place] [address] Referring Family Medicine 02/12/22 Spinner Continuous Relationship Specialty Start Date End Date Manuel Ferris MD [address] [place] [place] [address] PCP - General Family Medicine 02/27/22 Manuel Ferris MD [address] [place] [place] [address] Referring Family Medicine 02/12/22 Spinner Continuous Relationship Specialty Start Date End Date Manuel Ferris MD [address] [place] [place] [address] PCP - General Family Medicine 02/27/22 Manuel Ferris MD [address] [place] [place] [address] Referring Family Medicine 02/12/22 Spinner Continuous Relationship Specialty Start Date End Date Manuel Ferris MD [address] [place] [place] [address] PCP - General Family Medicine 02/27/22 Manuel Ferris MD [address] [place] [place] [address] Referring Family Medicine 02/12/22 Spinner Continuous Relationship Specialty Start Date End Date Manuel Ferris MD [address] [place] [place] [address] PCP - General Family Medicine 02/27/22 Manuel Ferris MD [address] [place] [address] Referring Family Medicine 02/12/22 Spinner Continuous Relationship Specialty Start Date End Date Manuel Ferris MD [address] [place] [place] [address] PCP - General Family Medicine 02/27/22 Manuel Ferris MD [address] [place] [place] [address] Referring Family Medicine 02/12/22 Spinner Continuous Relationship Specialty Start Date End Date Manuel Ferris MD [address] [place] [place] [address] PCP - General Family Medicine 02/27/22 Manuel Ferris MD [address] [place] [place] [address] Referring Family Medicine 02/12/22 Spinner Continuous Relationship Specialty Start Date End Date Manuel Ferris MD [address] [place] [address] PCP - General Family Medicine 02/27/22 Manuel Ferris MD [address] [place] [address] Referring Family Medicine 02/12/22 Spinner Continuous Relationship Specialty Start Date End Date Manuel Ferris MD [address] [place] [place] [address] PCP - General Family Medicine 02/27/22 Manuel Ferris MD [address] [place] [place] [address] Referring Family Medicine 02/12/22 Spinner Continuous Relationship Specialty Start Date End Date Manuel Ferris MD [address] [place] [place] [address] PCP - General Family Medicine 02/27/22 Manuel Ferris MD [address] [place] [place] [address] Referring Family Medicine 02/12/22 Spinner Continuous Relationship Specialty Start Date End Date Manuel Ferris MD [address] [place] [place] [address] PCP - General Family Medicine 02/27/22 Manuel Ferris MD [address] [place] [address] Referring Family Medicine 02/12/22 Spinner Continuous Relationship Specialty Start Date End Date Manuel Ferris MD [address] [place] [place] [address] PCP - General Family Medicine 02/27/22 Manuel Ferris MD [address] [place] [place] [address] Referring Family Medicine 02/12/22 Spinner Continuous Relationship Specialty Start Date End Date Manuel Ferris MD [address] [place] [address] PCP - General Family Medicine 02/27/22 Manuel Ferris MD [address] [place] [address] Referring Family Medicine 02/12/22 Spinner Continuous Relationship Specialty Start Date End Date Manuel Ferris MD [address] [place] [address] PCP - General Family Medicine 02/27/22 Manuel Ferris MD [address] [place] [address] Referring Family Medicine 02/12/22 Spinner Continuous Relationship Specialty Start Date End Date Manuel Ferris MD [address] [place] [address] PCP - General Family Medicine 02/27/22 Manuel Ferris MD [address] [place] [facility] [place] [address] Referring Family Medicine 02/12/22 Spinner Continuous Relationship Specialty Start Date End Date Manuel Ferris MD [address] [place] [place] [address] PCP - General Family Medicine 02/27/22 Manuel Ferris MD [address] [place] [place] [address] Referring Family Medicine 02/12/22 Spinner Continuous Relationship Specialty Start Date End Date Manuel Ferris MD [address] [place] [address] PCP - General Family Medicine 02/27/22 Manuel Ferris MD [address] [place] [place] [address] Referring Family Medicine 02/12/22 Spinner Continuous Relationship Specialty Start Date End Date Manuel Ferris MD [address] [place] [address] PCP - General Family Medicine 02/27/22 Manuel Ferris MD [address] [place] [address] Referring Family Medicine 02/12/22 Spinner Continuous Relationship Specialty Start Date End Date Manuel Ferris MD PCP - General Family Medicine 02/27/22 Manuel Ferris MD Referring Family Medicine 02/12/22 Spinner Continuous Relationship Specialty Start Date End Date Manuel Ferris MD PCP - General Family Medicine 02/27/22 Manuel Ferris MD Referring Family Medicine 02/12/22 Spinner Continuous Relationship Specialty Start Date End Date Manuel Ferris MD PCP - General Family Medicine 02/27/22 Manuel Ferris MD Referring Family Medicine 02/12/22 Spinner Continuous Relationship Specialty Start Date End Date Manuel Ferris MD PCP - General Family Medicine 02/27/22 Manuel Ferris MD Referring Family Medicine 02/12/22 Spinner Continuous Relationship Specialty Start Date End Date Manuel Ferris MD PCP - General Family Medicine 02/27/22 Manuel Ferris MD Referring Family Medicine 02/12/22 Spinner Continuous Relationship Specialty Start Date End Date Manuel Ferris MD PCP - General Family Medicine 02/27/22 Manuel Ferris MD Referring Family Medicine 02/12/22 Spinner Continuous Relationship Specialty Start Date End Date Manuel Ferris MD PCP - General Family Medicine 02/27/22 Manuel Ferris MD Referring Family Medicine 02/12/22 Spinner Continuous Relationship Specialty Start Date End Date Manuel Ferris MD PCP - General Family Medicine 02/27/22 Manuel Ferris MD Referring Family Medicine 02/12/22 Spinner Continuous Relationship Specialty Start Date End Date Manuel Ferris MD PCP - General Family Medicine 02/27/22 Manuel Ferris MD Referring Family Medicine 02/12/22 Spinner Continuous Relationship Specialty Start Date End Date Manuel Ferris MD PCP - General Family Medicine 02/27/22 Manuel Ferris MD Referring Family Medicine 02/12/22 Spinner Continuous Relationship Specialty Start Date End Date Manuel Ferris MD PCP - General Family Medicine 02/27/22 Manuel Ferris MD Referring Family Medicine 02/12/22 Spinner Continuous Relationship Specialty Start Date End Date Manuel Ferris MD PCP - General Family Medicine 02/27/22 Manuel Ferris MD Referring Family Medicine 02/12/22 Spinner Continuous Relationship Specialty Start Date End Date Manuel Ferris MD PCP - General Family Medicine 02/27/22 Manuel Ferris MD Referring Family Medicine 02/12/22 Spinner Continuous Relationship Specialty Start Date End Date Manule Ferris MD PCP - General Family Medicine 02/27/22 Manuel Ferris MD Referring Family Medicine 02/12/22 Spinner Continuous Relationship Specialty Start Date End Date Manuel Ferris MD PCP - General Family Medicine 02/27/22 Manuel Ferris MD Referring Family Medicine 02/12/22 Spinner Continuous Relationship Specialty Start Date End Date Manuel Ferris MD PCP - General Family Medicine 02/27/22 Manuel Ferris MD Referring Family Medicine 02/12/22 Spinner Continuous Relationship Specialty Start Date End Date Manuel Ferris MD PCP - General Family Medicine 02/27/22 Manuel Ferris MD Referring Family Medicine 02/12/22 Spinner Continuous Relationship Specialty Start Date End Date Manuel Ferris MD PCP - General Family Medicine 02/27/22 Manuel Ferris MD Referring Family Medicine 02/12/22 Spinner Continuous Relationship Specialty Start Date End Date Manuel Ferris MD PCP - General Family Medicine 02/27/22 Manuel Ferris MD Referring Family Medicine 02/12/22 Spinner Continuous Relationship Specialty Start Date End Date Manuel Ferris MD PCP - General Family Medicine 02/27/22 Manuel Ferris MD Referring Family Medicine 02/12/22 Spinner Continuous Relationship Specialty Start Date End Date Manuel Ferris MD PCP - General Family Medicine 02/27/22 Manuel Ferris MD Referring Family Medicine 02/12/22 Spinner Continuous Relationship Specialty Start Date End Date Manuel Ferris MD PCP - General Family Medicine 02/27/22 Manuel Ferris MD Referring Family Medicine 02/12/22 Spinner Continuous Relationship Specialty Start Date End Date Manuel Ferris MD PCP - General Family Medicine 02/27/22 Manuel Ferris MD Referring Family Medicine 02/12/22 Spinner Continuous Relationship Specialty Start Date End Date Manuel Ferris MD PCP - General Family Medicine 02/27/22 Manuel Ferris MD Referring Family Medicine 02/12/22 Spinner Continuous Relationship Specialty Start Date End Date Manuel Ferris MD PCP - General Family Medicine 02/27/22 Manuel Ferris MD Referring Family Medicine 02/12/22 Spinner Continuous Relationship Specialty Start Date End Date Manuel Ferris MD PCP - General Family Medicine 02/27/22 Manuel Ferris MD Referring Family Medicine 02/12/22 Spinner Continuous Relationship Specialty Start Date End Date Charles Nicole DO [address] [place] [id number] PCP - General 10/22/18 Michelle Jasmine, MANAGER OF HEALTH-PRINTING G[employer] T[employer]ER [address] [address] Nurse Practitioner Cardiology 06/08/23 Spinner Continuous Relationship Specialty Start Date End Date Gay Enciso, MANAGER OF HEALTH-PRINTING G[employer]OTH TENDER [address] [place] [address] PCP - General 07/13/23 Michelle Jasmine, MANAGER OF HEALTH-PRINTING G[employer]OTH TENDER [address] [facility] [address] [place] [address] Nurse Practitioner Cardiology 06/08/23 Aurora Patel MD [address] [facility] [address] [place] [address] Consulting Physician Cardiology 06/23/23 Spinner Continuous Relationship Specialty Start Date End Date Manuel Ferris MD PCP - General Family Medicine 02/27/22 Manuel Ferris MD Referring Family Medicine 02/12/22 Spinner Continuous Relationship Specialty Start Date End Date Manuel Ferris MD PCP - General Family Medicine 02/27/22 Manuel Ferris MD Referring Family Medicine 02/12/22 Team Status: Active Member Role Status Mark Salomon MD Primary Care Provider Active Start: July 28, 2023 Virgil Green MD Attending Provider Active S tart: July 28, 2023 Spinner Continuous Relationship Specialty Start Date End Date Manuel Ferris MD PCP - General Family Medicine 02/27/22 Manuel Ferris MD Referring Family Medicine 02/12/22 Team Status: Inactive Member Role Status Mark Salomon MD Primary Care Provider Active Start: December 16, 2023 End: December 16, 2023 Mirela Kelsey MD Attending Provider Active Sta rt: December 16, 2023 End: December 16, 2023 Spinner Continuous Relationship Specialty Start Date End Date Manuel Ferirs MD PCP - General Family Medicine 02/27/22 Manuel Ferris MD Referring Family Medicine 02/12/22 Spinner Continuous Relationship Specialty Start Date End Date Manuel Ferris MD PCP - General Family Medicine 02/27/22 Manuel Ferris MD Referring Family Medicine 02/12/22 Spinner Continuous Relationship Specialty Start Date End Date Manuel Ferris MD PCP - General Family Medicine 02/27/22 Manuel Ferris MD Referring Family Medicine 02/12/22 Spinner Continuous Relationship Specialty Start Date End Date Manuel [...] February 28, 2024 End: February 28, 2024 Spinner Continuous Relationship Specialty Start Date End Date Charles Nicole MD [address] [place] [address] PCP - General Family Medicine 02/09/24 Team Status: Inactive Member Role Status Dates Gay Enciso , BATTERY CHARGER TESTER-C Primary Care Provider Active Start: March 16, 2024 End: March 16, 2024 Bandar Portillo APRN Attending Provider Active Start: March 16, 2024 End: March 16, 2024 Spinner Continuous Relationship Specialty Start Date End Date Charles Nicole MD [address] [place] [address] PCP - General Family Medicine 02/09/24 Spinner Continuous Relationship Specialty Start Date End Date Charles Nicole MD [address] [place] [address] PCP - General Family Medicine 02/09/24 Spinner Continuous Relationship Specialty Start Date End Date Charles Nicole MD [address] [place] [address] PCP - General Family Medicine 02/09/24 Spinner Continuous Relationship Specialty Start Date End Date Charles Nicole MD [address] [place] [address] PCP - General Family Medicine 02/09/24 Spinner Continuous Relationship Specialty Start Date End Date Charles Nicloe MD [address] [place] [address] PCP - General Family Medicine 02/09/24 Spinner Continuous Relationship Specialty Start Date End Date Manuel Ferris MD PCP - General Family Medicine 02/27/22 Manuel Ferris MD Referring Family Medicine 02/12/22 Spinner Continuous Relationship Specialty Start Date End Date Charles Nicole MD [address] [place] [address] PCP - General Family Medicine 02/09/24 Spinner Continuous Relationship Specialty Start Date End Date Charles Nicole MD [address] [place] [address] PCP - General Family Medicine 02/09/24 Spinner Continuous Relationship Specialty Start Date End Date Charles Nicole MD [address] [place] [address] PCP - General Family Medicine 02/09/24 Spinner Continuous Relationship Specialty Start Date End Date Charles Nicole MD [address] [place] [address] PCP - General Family Medicine 02/09/24 Spinner Continuous Relationship Specialty Start Date End Date Manuel Ferris MD PCP - General Family Medicine 02/27/22 Manuel Ferris MD Referring Family Medicine 02/12/22 Spinner Continuous Relationship Specialty Start Date End Date Charles Nicole MD [address] [place] [address] PCP - General Family Medicine 02/09/24 Spinner Continuous Relationship Specialty Start Date End Date Manuel Ferris MD PCP - General Family Medicine 02/27/22 Manuel Ferris MD Referring Family Medicine 02/12/22 Spinner Continuous Relationship Specialty Start Date End Date Manuel Ferris MD PCP - General Family Medicine 02/27/22 Manuel Ferris MD Referring Family Medicine 02/12/22 Spinner Continuous Relationship Specialty Start Date End Date Charles Nicole MD [address] [place] [address] PCP - General Family Medicine 02/09/24 Spinner Continuous Relationship Specialty Start Date End Date Manuel Ferris MD PCP - General Family Medicine 02/27/22 Manuel Ferris MD Referring Family Medicine 02/12/22 Manuel Ferris MD [address] [place] [address] Referring Family Medicine 07/06/24 Team Status: Inactive Member Role Status Dates Gay Enciso NP-C Primary Care Provider Active Start: July 10, 2024 End: July 10, 2024 Adolfo Kang MD Attending Provider Active Sta rt: July 10, 2024 End: July 10, 2024 Spinner Continuous Relationship Specialty Start Date End Date Manuel Ferris MD PCP - General Family Medicine 02/27/22 Manuel Ferris MD Referring Family Medicine 02/12/22 Manuel Ferris MD [address] [place] [address] Referring Family Medicine 07/06/24 Spinner Continuous Relationship Specialty Start Date End Date Manuel Ferris MD PCP - General Family Medicine 02/27/22 Manuel Ferris MD Referring Family Medicine 02/12/22 Manuel Ferris MD [address] [place] [address] Referring Family Medicine 07/06/24 Team Status: Inactive Member Role Status Dates Gay Enciso , CARISSA-C Primary Care Provider Active Start: July 19, 2024 End: July 19, 2024 Adolfo Kang MD Attending Provider Active Sta rt: July 19, 2024 End: July 19, 2024 Spinner Continuous Relationship Specialty Start Date End Date Gay Enciso MD [address] [place] [address] Referring Physician Family Medicine 07/18/24 Spinner Continuous Relationship Specialty Start Date End Date Manuel Ferris MD PCP - General Family Medicine 02/27/22 Manuel Ferris MD Referring Family Medicine 02/12/22 Manuel Ferris MD [address] [place] [address] Referring Family Medicine 07/06/24 Spinner Continuous Relationship Specialty Start Date End Date Gay Enciso MD [address] [place] [address] Referring Physician Family Medicine 07/18/24 Spinner Continuous Relationship Specialty Start Date End Date Gay Enciso APRN-PRINTING G[employer]OTH TENDER [address] [place] [address] PCP - General 07/13/23 Michelle Jasmine, MANAGER OF HEALTH-PRINTING G[employer] T[employer]ER Nurse Practitioner Cardiology 06/08/23 Aurora Patel MD [...] July 31, 2024 End: July 31, 2024 Spinner Continuous Relationship Specialty Start Date End Date Manuel Ferris MD PCP - General Family Medicine 02/27/22 Manuel Ferris MD Referring Family Medicine 02/12/22 Manuel Ferris MD [address] [place] [address] Referring Family Medicine 07/06/24 Spinner Continuous Relationship Specialty Start Date End Date Manuel Ferris MD PCP - General Family Medicine 02/27/22 Manuel Ferris MD Referring Family Medicine 02/12/22 Manuel Ferris MD [address] [place] [address] Referring Family Medicine 07/06/24 Spinner Continuous Relationship Specialty Start Date End Date Manuel Ferris MD PCP - General Family Medicine 02/27/22 Manuel Ferris MD Referring Family Medicine 02/12/22 Manuel Ferris MD [address] [place] [address] Referring Family Medicine 07/06/24 Team Status: Inactive Member Role Status Dates Gay Enciso NP-C Primary Care Provider Active Start: August 22, 2024 End: August 22, 2024 Adolfo Kang MD Attending Provider Active Sta rt: August 22, 2024 End: August 22, 2024 Spinner Continuous Relationship Specialty Start Date End Date Gay Enciso MD [address] [place] [address] Referring Physician Family Medicine 07/18/24 Spinner Continuous Relationship Specialty Start Date End Date Manuel Ferris MD PCP - General Family Medicine 02/27/22 Manuel Ferris MD Referring Family Medicine 02/12/22 Manuel Ferris MD [address] [place] [address] Referring Family Medicine 07/06/24 Spinner Continuous Relationship Specialty Start Date End Date Manuel Ferris MD PCP - General Family Medicine 02/27/22 Manuel Ferris MD Referring Family Medicine 02/12/22 Manuel Ferris MD [address] [place], [place] [id number] Referring Family Medicine 07/06/24 Spinner Continuous Relationship Specialty Start Date End Date Gay Enciso MD [address] [place], [place] [address] Referring Physician Family Medicine 07/18/24 Spinner Continuous Relationship Specialty Start Date End Date Gay Enciso MD [address] [place], [place] [address] Referring Physician Family Medicine 07/18/24 Spinner Continuous Relationship Specialty Start Date End Date Manuel Ferris MD PCP - General Family Medicine 02/27/22 Manuel Ferris MD Referring Family Medicine 02/12/22 [place] [address] [place] [address] Referring Family Medicine 07/06/24 Spinner Continuous Relationship Specialty Start Date End Date Manuel Ferris MD PCP - General Family Medicine 02/27/22 Manuel Ferris MD Referring Family Medicine 02/12/22 Manuel Ferris MD [address] [place] [facility] [address] Referring Family Medicine 07/06/24 Spinner Continuous Relationship Specialty Start Date End Date Manuel Ferris MD PCP - General Family Medicine 02/27/22 Manuel Ferris MD Referring Family Medicine 02/12/22 Manuel Freris MD [address] [place] [address] Referring Family Medicine 07/06/24 Spinner Continuous Relationship Specialty Start Date End Date Manuel Ferris MD PCP - General Family Medicine 02/27/22 Manuel Ferris MD Referring Family Medicine 02/12/22 Manuel Ferris MD [address] [place] [address] Referring Family Medicine 07/06/24 Spinner Continuous Relationship Specialty Start Date End Date Manuel Ferris MD PCP - General Family Medicine 02/27/22 Manuel Ferris MD Referring Family Medicine 02/12/22 Manuel Ferris MD [address] [place] [place] [address] Referring Family Medicine 07/06/24 Spinner Continuous Relationship Specialty Start Date End Date Manuel Ferris MD PCP - General Family Medicine 02/27/22 Manuel Ferris MD Referring Family Medicine 02/12/22 Manuel Ferris MD [address] [place] [address] Referring Family Medicine 07/06/24 Spinner Continuous Relationship Specialty Start Date End Date Manuel Ferris MD PCP - General Family Medicine 02/27/22 Manuel Ferris MD Referring Family Medicine 02/12/22 Manuel Ferris MD [address] [place] [address] Referring Family Medicine 07/06/24 Spinner Continuous Relationship Specialty Start Date End Date Manuel Ferris MD PCP - General Family Medicine 02/27/22 Manuel Ferris MD Referring Family Medicine 02/12/22 Manuel Ferris MD [address] [place] [address] Referring Family Medicine 07/06/24 Spinner Continuous Relationship Specialty Start Date End Date Manuel Ferris MD PCP - General Family Medicine 02/27/22 Manuel Ferris MD Referring Family Medicine 02/12/22 Manuel Ferris MD [address] [place] [address] Referring Family Medicine 07/06/24 Spinner Continuous Relationship Specialty Start Date End Date Manuel Ferris MD PCP - General Family Medicine 02/27/22 Manuel Ferris MD Referring Family Medicine 02/12/22 Manuel [place] MD [address] [id number] Referring Family Medicine 07/06/24 Spinner Continuous Relationship Specialty Start Date End Date Manuel [place] MD PCP - General Family Medicine 02/27/22 Manuel [place] MD Referring Family Medicine 02/12/22 Manuel [place] MD [address] [id number] Referring Family Medicine 07/06/24 Spinner Continuous Relationship Specialty Start Date End Date Manuel [place] MD PCP - General Family Medicine 02/27/22 Manuel [place] MD Referring Family Medicine 02/12/22 Manuel [place] MD [address] [place] [address] Referring Family Medicine 07/06/24 Spinner Continuous Relationship Specialty Start Date End Date Manuel [place] MD PCP - General Family Medicine 02/27/22 Manuel [place] MD Referring Family Medicine 02/12/22 Manuel [place] MD [address] [place] [id number] Referring Family Medicine 07/06/24 Team Status: Inactive Member Role Status Dates Gay Enciso NP-Ananya Primary Care Provider Active Start: September 06, 2024 End: September 06, 2024 Adolfo Kang MD Attending Provider Active Sta rt: September 06, 2024 End: September 06, 2024 Team Status: Inactive Member Role Status Dates Gay Enciso NP-C Primary Care Provider Active Start: November 13, 2024 End: November 13, 2024 Adolfo Kang MD Attending Provider Active Sta rt: November 13, 2024 End: November 13, 2024 Spinner Continuous Relationship Specialty Start Date End Date Gay Enciso MD [address] [place] [id number] Referring Physician Family Medicine 07/18/24 Spinner Continuous Relationship Specialty Start Date End Date Manuel [place] MD PCP - General Family Medicine 02/27/22 Manuel [place] MD Referring Family Medicine 02/12/22 [place] [address] [place] [id number] Referring Family Medicine 07/06/24 Spinner Continuous Relationship Specialty Start Date End Date Manuel [place] MD PCP - General Family Medicine 02/27/22 Manuel [place] MD Referring Family Medicine 02/12/22 aMnuel [place] MD [address] [place] [address] Referring Family Medicine 07/06/24 Spinner Continuous Relationship Specialty Start Date End Date Manuel [place] MD PCP - General Family Medicine 02/27/22 Manuel [place] MD Referring Family Medicine 02/12/22 Manuel [place] MD [address] [place] [address] Referring Family Medicine 07/06/24 Team Status: Inactive Member Role Status Dates Gay Enciso , [employer]-C Primary Care Provider Active Start: January 31, 2025 End: January 31, 2025 Adolfo Kang MD Attending Provider Active Sta rt: January 31, 2025 End: January 31, 2025 Spinner Continuous Relationship Specialty Start Date End Date Gay Enciso MD [address] [place] [address] Referring Physician Family Medicine 07/18/24 Spinner Continuous Relationship Specialty Start Date End Date Gay Enciso MD [address] [place] [address] Referring Physician Family Medicine 07/18/24 Team Status: Inactive Member Role Status Dates Mathew Ji MD Attending Provider Active St art: February 26, 2025 End: February 26, 2025 Spinner Continuous Relationship Specialty Start Date End Date Gay Enciso MD [address] [place] [id number] Referring Physician Family Medicine 07/18/24 Inactive Administered [...] BE BASED ON THE PRIMARY CLINICAL RECORDS. [employer] provides no warranty or guarantee of the accuracy or completeness of information in this document.
[2025-03-01 17:27] LABS: Lactate/Lactic Acid 2.1 mmol/L (0.4-2.0)
[2025-03-03 14:58] LABS: Lactate/Lactic Acid 3.6 mmol/L (0.4-2.0)
[2025-03-05 10:51] LABS: Lactate/Lactic Acid 2.2 mmol/L (0.4-2.0)
[2025-03-07 16:31] LABS: Lactate/Lactic Acid 1.8 mmol/L (0.4-2.0)
[2025-03-09 17:11] LABS: Lactate/Lactic Acid 3.0 mmol/L (0.4-2.0)
[2025-03-10 12:34] LABS: Lactate/Lactic Acid 2.0 mmol/L (0.4-2.0)
[2025-03-12 16:59] LABS: Lactate/Lactic Acid 1.3 mmol/L (0.4-2.0)
[2025-03-14 14:28] LABS: Lactate/Lactic Acid 1.8 mmol/L (0.4-2.0)
[2025-03-17 13:50] LABS: Lactate/Lactic Acid 2.5 mmol/L (0.4-2.0)
[2025-03-19 17:03] LABS: Lactate/Lactic Acid 1.1 mmol/L (0.4-2.0)
[2025-03-22 14:00] LABS: Lactate/Lactic Acid 2.7 mmol/L (0.4-2.0)
== END 2025-03-26 11:58 | disposition home or self-care (01) ==
LOC: LAB 16:37
PROVIDERS: PCP Nurse Practitioner Family; Visit Provider Nurse Practitioner Family
DX: Z51.81 Encounter for therapeutic drug level monitoring (principal); R79.89 Other specified abnormal findings of blood chemistry
CPT/HCPCS: 36415; 83605

== ENCOUNTER 2025-03-03 15:37 | Emergency (ER) | payer OTHER, SELFPAY ==
[2025-03-03 15:43] VITALS: BP 136/64; PULSE 72; TEMP 37.1; O2SAT 98; BMI 44.6
--- NOTE | 2025-03-03 15:50 | XR_ITS ---
The [address] [address] Patient Name: JONES HALEY MRN: [id number] date: 1980 Sex: F Assigned Patient Location: ER Current Patient Location: ER Accession/Order Number: [id number] Exam Date: 03/03/2025 16:20 Report Date: 03/03/2025 17:30 At the request of: ZOE LOPEZ MD Procedure: XR chest 1V PA CHEST: CLINICAL HISTORY: SOB COMPARISON: CT chest 12/11/2023 Unremarkable cardiomediastinal silhouette. Lungs are clear. No effusion or pneumothorax. Overlying soft tissues degrades evaluation of the LUNG BASES. XR/XR chest 1V IMPRESSION: NEGATIVE ACUTE PLEURAL-PARENCHYMAL DISEASE. Impression dictated by: Rafal Cox M.D. 03/03/2025 5:30 PM Dictation Location: [place] [address] Electronically authenticated by: [id number] Y Date: 03/03/2025 17:30
--- NOTE | 2025-03-03 15:52 | ED.GENADUL1 ---
HPI HPI - General Adult General Chief complaint: Recheck/Abnormal Lab/Rx Stated complaint: Abnormal Lab Time Seen by Provider: 03/03/25 15:44 Source: patient Mode of arrival: walk-in Limitations: no limitations History of Present Illness HPI narrative: 44-year-old female presents for an abnormal blood test. She had blood drawn today and her lactic acid was 3.6. Her PCP is checking her lactic acid every other day. Yesterday she had a pilonidal cyst drained by her surgeon under local anesthetic and she was put on Keflex. No fever or vomiting. She feels a little bit short of breath. Related Data Home Medications ?Medication ?Instructions ?Recorded ?Confirmed ergocalciferol (vitamin D2) 1,250 1,250 mcg PO .3 times weekly 12/18/22 03/03/25 mcg (50,000 unit) capsule folic acid 1 mg tablet 1 mg PO DAILY 12/18/22 03/03/25 hydroxychloroquine 200 mg tablet 200 mg PO BID 12/18/22 03/03/25 prednisone 10 mg tablet 10 mg PO DAILY 12/18/22 03/03/25 pregabalin 75 mg capsule 75 mg PO Q8H PRN pain 12/18/22 03/03/25 metoprolol tartrate 50 mg tablet 200 mg PO DAILY 07/07/23 03/03/25 duloxetine 20 mg capsule,delayed 20 mg PO DAILY 04/15/24 03/03/25 release chlorhexidine gluconate 4 % 1 applic topical DAILY 03/03/25 03/03/25 topical liquid (Hibiclens) clindamycin phosphate 1 % lotion 1 applic topical DAILY 03/03/25 03/03/25 clonazepam 0.5 mg tablet 0.5 mg PO Q12H PRN anxiety 03/03/25 03/03/25 dulaglutide 0.75 mg/0.5 mL 1.5 mg subcut .WEEKLY 03/03/25 03/03/25 subcutaneous pen injector ([facility]) fluocinonide 0.05 % topical topical 03/03/25 solution pantoprazole 40 mg tablet,delayed mg PO 03/03/25 release tacrolimus 0.1 % topical ointment topical 03/03/25 tretinoin 0.025 % topical cream applic topical 03/03/25 Previous Rx's ?Medication ?Instructions ?Recorded cephalexin 500 mg capsule 500 mg PO TID 10 days #30 caps 02/26/25 fidaxomicin 200 mg tablet 200 mg PO BID 10 days #20 tabs 02/26/25 Allergies Allergy/AdvReac Type Severity Reaction Status Date / Time clindamycin Allergy Mild Unknown Verified 03/03/25 15:43 sulfamethoxazole (From Allergy Unknown Verified 02/24/25 23:58 Sulfamethoxazole-Trimethoprim) trimethoprim (From Allergy Unknown Verified 02/24/25 23:58 Sulfamethoxazole-Trimethoprim) Bactrim Allergy Intermediate Unknown Uncoded 02/24/25 23:58 Opioid HPI Opioid Management Most Recent Opioid Data: Last Pain Scale 6 02/26/25, 21:22 Last MAR Pain Assessment 02/26/25, 21:22 Review of Systems ROS Narrative A ten point review of systems is negative except as noted above. PFSH PFS Social History Smoking status: Current every day smoker Little interest or pleasure in doing things: not at all Feeling down, depressed, or hopeless: not at all Exam Narrative Exam Narrative: Nurses note and vital signs reviewed and patient is not hypoxic. General:The patient appears well and in no apparent distress.Patient is resting comfortably on cart. Skin:Warm, dry, no pallor noted.There is no rash noted. Head:Normocephalic, atraumatic Eye: Normal conjunctiva, no drainage Ears, Nose, Mouth, and Throat: oral mucosa is moist. Nares patent. Cardiovascular:Regular Rate and Rhythm Respiratory:Patient is in no distress, no accessory muscle use, lungs are clear to auscultation, no wheezing, rales or rhonchi Back:non-tender. The pilonidal cyst area is examined. There is no erythema. There is packing in the wound. No active drainage. GI: Obese and nontender Musculoskeletal: The patient has no evidence of calf tenderness, no pitting edema, symmetrical pulses noted bilaterally Neurological:A&O, normal speech Psychiatric:Cooperative Constitutional Vital Signs, click to edit/add: Last Vital Signs Temp 98.8 F 03/03/25 15:43 Pulse 72 03/03/25 15:43 Resp 20 03/03/25 15:43 BP 136/64 03/03/25 15:43 Pulse Ox 98 03/03/25 15:43 O2 Del Method Room Air 03/03/25 15:43 Course Vital Signs Vital signs: Vital Signs Temperature 98.8 F 03/03/25 15:43 Pulse Rate 72 03/03/25 15:43 Respiratory Rate 20 03/03/25 15:43 Blood Pressure 136/64 03/03/25 15:43 Pulse Oximetry 98 03/03/25 15:43 Oxygen Delivery Method Room Air 03/03/25 15:43 Temperature 98.8 F 03/03/25 15:43 Pulse Rate 72 03/03/25 15:43 Respiratory Rate 20 03/03/25 15:43 Blood Pressure 136/64 03/03/25 15:43 Pulse Oximetry 98 03/03/25 15:43 Oxygen Delivery Method Room Air 03/03/25 15:43 Medical Decision Making MDM Narrative Medical decision making narrative: Earlier today her lactic acid was 3.6 and now it is 2.8. She may have mild UTI and culture is pending but she is already on Keflex. WBC is normal. She was given IV fluids and there is no evidence of an acute infection that would require admission in the hospital. Treatment diagnosis and follow-up were discussed with the patient. She is not acidotic, her bicarbonate is normal. Differential Diagnosis Differential Diagnosis: Lactic acidosis, abnormal blood work, UTI Lab Data Lab results reviewed: Yes I reviewed the patient's lab results Labs: Lab Results 03/03/25 03/03/25 Range/Units 16:13 16:14 WBC 10.3 (4.0-11.0) 10^3/uL RBC 4.25 (4.20-5.40) 10^6/uL Hgb 13.6 (12.0-16.0) g/dL Hct 40.9 (36.0-48.0) % MCV 96.2 (81.0-99.0) fL MCH 32.0 (26.7-34.0) pg MCHC 33.3 (29.9-35.2) g/dL RDW 14.1 (11.0-15.0) % Plt Count 289 (150-450) 10^3/uL MPV 10.4 (9.5-13.5) fL Neut % (Auto) 74.0 (43.0-75.0) % Lymph % (Auto) 16.6 L (20.5-60.0) % [place] % (Auto) 6.6 (1.7-12.0) % Eos % (Auto) 0.9 (0.9-7.0) % Baso % (Auto) 0.5 (0.2-2.0) % Neut # (Auto) 7.7 H (1.4-6.5) 10^3/uL Lymph # (Auto) 1.7 (1.2-3.8) 10^3/uL [place] # (Auto) 0.7 (0.3-0.8) 10^3/uL Eos # (Auto) 0.1 (0.0-0.7) 10^3/uL Baso # (Auto) 0.1 (0.0-0.1) 10^3/uL Abs Immat Gran (auto) 0.14 H (0.00-0.03) 10^3/uL Imm/Tot Granulo (auto) 1.4 H (0.0-0.5) % Sodium 140 (136-145) mmol/L Potassium 4.0 (3.5-5.1) mmol/L Chloride 103 (98-107) mmol/L Carbon Dioxide 22.1 (21.0-32.0) mmol/L Anion Gap 18.9 BUN 8.0 (7.0-18.0) mg/dL Creatinine 0.61 (0.55-1.02) mg/dL Est GFR ( Amer) >60 (>=60 mL/min/1.73m^2) Est GFR (Non-Af Amer) >60 (>=60 mL/min/1.73m^2) BUN/Creatinine Ratio 13.1 Glucose 216 H (74-106) mg/dL Lactate 2.8 H* (0.4-2.0) mmol/L Calcium 8.8 (8.5-10.1) mg/dL Urine Color Lt. yellow (YELLOW) Urine Clarity Clear (CLEAR) Urine pH 6.0 (5.0-9.0) Ur Specific [place] >=1.030 A (1.005-1.025) Urine Protein Trace (NEG/TRACE) mg/dL Urine Glucose (UA) 250 A (NEGATIVE) mg/dL Urine Ketones Negative (NEGATIVE) mg/dL Urine Occult Blood Negative (NEGATIVE) Urine Nitrite Negative (NEGATIVE) Urine Bilirubin Negative (NEGATIVE) Urine Urobilinogen 0.2 (0.2-1.0) EU/dL Ur Leukocyte Esterase Small A (NEGATIVE) Urine RBC 0-2 (0-2) #/HPF Urine WBC 5-10 A (NONE SEEN) #/HPF Ur Squamous Epith Cells Many A (NONE/RARE) #/LPF Urine Crystals None seen (None Seen) #/HPF Urine Bacteria Small A (NONE SEEN) #/HPF Urine Casts None seen (NONE SEEN) #/LPF Urine Mucus Trace A (NONE SEEN) Ur Culture Indicated? Yes-[facility] Imaging Data Chest x-ray: Radiologist's impression: ITS Impressions Chest X-Ray 03/03/25 15:50 IMPRESSION: NEGATIVE ACUTE PLEURAL-PARENCHYMAL DISEASE. Impression dictated by: Rafal Cox M.D. 03/03/2025 5:30 PM Dictation Location: [place] [address] Electronically authenticated by: [id number] Y Date: 03/03/2025 17:30 Discharge Plan Discharge Chief Complaint: Recheck/Abnormal Lab/Rx Clinical Impression: Abnormal laboratory test Patient Disposition: Home, Self-Care Time of Disposition Decision: 18:23 Condition: Good Mode of Transportation: Private Vehicle Prescriptions / Home Meds: No Action ergocalciferol (vitamin D2) 1,250 mcg (50,000 unit) capsule 1,250 mcg PO .3 times weekly folic acid 1 mg tablet 1 mg PO DAILY hydroxychloroquine 200 mg tablet 200 mg PO BID prednisone 10 mg tablet 10 mg PO DAILY pregabalin 75 mg capsule 75 mg PO Q8H PRN (Reason: pain) metoprolol tartrate 50 mg tablet 200 mg PO DAILY duloxetine 20 mg capsule,delayed release(DR/EC) 20 mg PO DAILY fidaxomicin 200 mg tablet 200 mg PO BID 10 Days Qty: 20 0RF cephalexin 500 mg capsule 500 mg PO TID 10 Days Qty: 30 0RF chlorhexidine gluconate [Hibiclens] 4 % liquid 1 applic TOPICAL DAILY clindamycin phosphate 1 % lotion 1 applic TOPICAL DAILY clonazepam 0.5 mg tablet 0.5 mg PO Q12H PRN (Reason: anxiety) tretinoin 0.025 % cream TOPICAL pantoprazole 40 mg tablet,delayed release (DR/EC) PO tacrolimus 0.1 % ointment TOPICAL fluocinonide 0.05 % solution TOPICAL Trulicity 0.75 mg/0.5 mL pen injector 1.5 mg SUBCUT .WEEKLY Print Language: [place] Instructions: Pilonidal Cyst (ED) Referrals: SAMSON ENCISO [Primary Care Provider, Family Practice] - 1 week
--- OUTSIDE RECORDS SUMMARY | 2025-03-03 15:55 | XMS_ITS | CCD ---
Author Organization [facility] CliniSywv Care Team Providers Care Division Leader Name Role Phone VICTOR MANUEL GUZMAN Referring Unavailable Unavailable Primary Care Provider UnavailJONAS Stuart Referring Unavailable Britt DIGITAL PRODUCT SPECIALIST.TRUE, Gay Primary Care Provider Mirela Kelsey Unavailable Britt DIGITAL PRODUCT SPECIALIST.RAND TACKER, Gay Primary Care Provider Manuel Ferris MD [...] Consulting Unavailable BLANK, DR DIETZ Attending Unavailable LAURE, DR DIETZ Admitting Unavailable HOY ., DR [...] Care Provider UnavailAurora Carney MD Unavailable Britt THORPE-TRUE, Gay S Primary Care Provider Manuel Ferris MD Primary Care Provider MD Adolfo Kang Attending Provider CARISSA Enciso-Ananya Gay Natalie Primary Care Provider [phone] Charles Nicole MD Primary Care Provider CALOS MENDOZA Attending Unavailable Unavailable Primary Care Provider UnavailManuel Calixto MD Unavailable Britt MANAGER RELIABILITY-C, Gay Natalie Primary Care Provider [phone] Adolfo Kang MD Attending Provider ALHAJI HEAD Attending Unavailable MANUEL FERRIS Primary Care Unavailable ALHAJI HEAD Attending Unavailable VAIBHAV CARVALHO Referring Unavailable MANUEL FERRIS Primary Care Unavailable Gay Enciso MD Unavailable Mitali THORPE-TRUE, Michelle London Unavailable [phone] Aurora Patel MD Unavailable Britt TABOR, Gay S Primary Care Provider LOIS HOLM Attending Unavailable GAY ENCISO S Primary Care Unavailable HOLM, SAENZ M Attending Unavailable LOIS HOLM M Referring Unavailable BRITT, GAY S Primary Care Unavailable Britt MANAGER RELIABILITY-C, Gay Natalie Primary Care Provider Jorge Luis LEE, Adolfo Jane Attending Provider Britt MANAGER RELIABILITY-C, Gay Natalie Primary Care Provider Jorge Luis LEE, Adolfo Jane Attending Provider Margie Arnett NP Attending Provider Britt MANAGER RELIABILITY-C, Gay Natalie Primary Care Provider [phone] Jorge Luis LEE, Adolfo Jane Attending Provider Bandar Portillo APRN Attending Provider Britt MANAGER RELIABILITY-C, Gay Natalie Primary Care Provider Adolfo Kang MD Attending Provider [phone] Janes Barfield MD Attending Provider [phone] Adolfo Kang MD Other Provider ABHYANKAR, VERA Referring Unavailable HOY, MANUEL M [...] Primary Care Unavailable ABHYANKAR, VERA Referring Unavailable DEVEN, VAIBHAV Attending Unavailable HOY, MANUEL [...] HOY, MANUEL M Primary Care Unavailable CONCEPCIÓN, YN Attending Unavailable HOY, MANUEL M Primary Care Unavailable CONCEPCI[place]N, [place] Referring Unavailable LAST, LYNNE Referring Unavailable HOY, MANUEL M Primary Care Unavailable LAST, LYNNE Referring Unavailable HOY, MANUEL M Primary Care Unavailable ABHYANKAR, VERA Referring Unavailable HOY, MANUEL M Primary Care Unavailable ABHYANKAR, VERA Referring Unavailable HOY, MANUEL M Primary Care Unavailable DEVEN, VAIBHAV Referring Unavailable HOY, MANUEL M Primary Care Unavailable Britt MANAGER RELIABILITY-C, Gay Estrada Primary Care Provider Adolfo Kang MD Attending Provider Mathew Ji MD Attending Provider Adolfo Kang Admitting Unavailable Adolfo Kang Attending Unavailable Gay Enciso Primary Care Unavailable Mathew Ji Admitting Unavailable Mathew Ji Attending Unavailable Janes Barfield Admitting Unavailab Janes Quispe Attending Unavailab Gay Terrell Primary Care Unavailable Adolfo Kang S Admitting Unavailable Adolfo Kang S Attending Unavailable Gay Enciso Primary Care Unavailable BERNABE ENGLISH Attending Unavailable GORDO BARFIELD Attending Unavailable MELISSA HUDDLESTON Attending Unavailable OLY PLASCENCIA Referring Unavailable PETBERNABE HOWE Attending Unavailable TERENCE DAY Attending Unavailable PETBERNABE HOWE Referring Unavailable LUAN VALDIVIA Attending Unavailable OLY PLASCENCIA Attending Unavailable MARKY MIKE Attending Unavailable GORDO BARFIELD Attending Unavailable GAY ENCISO Referring Unavailable OLY PLASCENCIA Attending Unavailable Allergies Allergy Classification Reported Allergen(s) Allergy Type Date of Onset Reaction(s) Facility Dihydrofolate Reductase Inhibitors (antibiotic) (3 sources) Trimethoprim Drug Allergy Other: See Comments [facility] Doxycycline (3 sources) Doxycycline Drug Allergy Other: See Comments [facility] Latex (3 sources) Latex Substance Allergy Rash [facility] Lincosamides (antibiotic) (3 sources) Clindamycin Drug Allergy Unknown [facility] Opioid Agonists (3 sources) Codeine Drug Allergy Other: See Comments [facility] Sulfamethoxazole / Trimethoprim (4 sources) Sulfamethoxazole / Trimethoprim Drug Allergy [facility] Sulfonamides (antibiotic) (3 sources) Sulfamethoxazole Drug Allergy Other: See Comments [facility] Work Phone: (20 sources) Codeine; Translations: [CODEINE] Drug Allergy Other: See Comments [facility] (20 sources) Latex; Translations: [LATEX] Drug Allergy Rash [facility] (20 sources) Sulfamethoxazole; Translations: [SULFAMETHOXAZOLE] Drug Allergy GI Upset, Other: See Comments [facility] (20 sources) Clindamycin; Translations: [CLINDAMYCIN] Drug Allergy Unknown [facility] (4 sources) Sulfamethoxazole / Trimethoprim Drug Allergy lymph swelling Cryptonator Other (20 sources) Doxycycline; Translations: [DOXYCYCLINE] Drug Allergy Other: See Comments, Other, Unknown, Other (See Comments) [facility] (20 sources) Sulfamethoxazole / Trimethoprim; Translations: [SULFAMETHOXAZOLE-T RIMETHOPRIM] Drug Allergy Swelling, Other, GI Disturbance, Other (See Comments) [facility] (20 sources) Trimethoprim; Translations: [TRIMETHOPRIM] Drug Allergy Other: See Comments [facility] (1 source) Latex Drug allergy (disorder) [facility] Rep[facility] (1 source) Sulfamethoxazole / Trimethoprim Drug Allergy [facility] (20 sources) Sulfamethoxazole Allergy to substance 023 [facility] (20 sources) Latex Propensity to adverse reactions 015 Rash [facility] (1 source) Omeprazole; Translations: [OMEPRAZOLE] Drug Allergy [facility] Repository (1 source) pantoprazole; Translations: [PANTOPRAZOLE] Drug Allergy [facility] Repository (1 source) Clindamycin Drug Allergy [facility] Repository (1 source) Sulfamethoxazole Drug Allergy [facility] Repository (1 source) Trimethoprim Drug Allergy [facility] Repository Medications Current Medications Medication Drug [...] take 1 tablet by mouth twice daily amoxicillin-clavulana te (AUGMENTIN) 875-125 MG per tablet Take 1 tablet by mouth 2 times daily 0 Active aspirin 81 mg chewable tablet (20 sources) Platelet Aggregation Inhibitor, Nonsteroidal Anti-inflammatory Drug aspirin 81 MG chewable tablet Chew 81 mg Daily Active Comment on above: Take 81 mg by mouth. baclofen 5 mg oral tablet (20 sources) gamma-Aminobutyric Acid-ergic Agonist Start: 02-09-20 End: 02-29-20 take 1 tablet by mouth at bedtime baclofen (Lioresal) 5 MG tablet Indications: Lumbosacral radiculopathy at L5 , Degenerative disc disease, lumbar , Cervical radiculopathy at C5 TAKE 1 TABLET BY MOUTH IN THE MORNING, EVENING AND BEFORE BEDTIME 270 tablet 1 03/02/2024 02/28/2025 Discontinued (Therapy completed) belimumab (20 sources) B Lymphocyte Stimulator-specific Inhibitor Start: 11-14-19 belimumab (Benlysta) Active IV every month November 13, 2024 12:00am Complies with drug therapy Start: 11-13-2024 Start: 02-04-2023 End: 11-13-2024 inject 200 mg by subcutaneous injection every week Belimumab (Benlysta) 200 mg/mL auto-injector Discontinued 200 MG SUBCUT every week October 20, 2023 12:00am November 13, 2024 11:23am Comment on above: Inject 200mg (1 pen) subcutaneously once weekly cephalexin 500 mg oral capsule (8 sources) Cephalosporin Antibacterial Start: take 1 capsule by mouth three times daily Cephalexin 500 mg capsule Active 500 MG PO Three times daily February 28, 2025 12:00am Complies with drug therapy Start: 02-27-2025 cephalexin (Ke flex) 500 MG capsule 02/27/2025 Active Start: 06-15-2024 [...] MG PO Daily July 31, 2024 12:00am Complies with drug therapy clotrimazole 10 mg oral lozenge (10 sources) [...] Start: 04-13-2022 End: 08-28-2049 CPAP/BIPAP/OTHER Indications : OJSE RAFAEL (obstructive sleep apnea) Type .CPAPSettings into [...] times a day as needed. 02/01/2024 Active fkqdbaqmklPYZRL-taqnmo-scfvg belia (BMX 1:1:1) 1:1:1 liqd (20 sources) Start: 07-12-2024 take 5 mL by mouth every six hours as needed ajxzkadsqvXJTNZ-shatgz-tttlshnit (BMX 1:1:1) 1:1:1 liqd Take 5 mL [...] on above: Take 1 capsule by mo [facility] once daily. ergocalciferol 1.25 mg oral capsule (20 sources) Provitamin D2 Compound Start: 11-13-2024 Ergocalciferol (Vitamin D2) 1,250 mcg (50,000 unit) capsule Active 91049 UNIT PO 3 Times a week November [...] D2) 1,250 mcg (50,000 unit) capsule Discontinued 87946 UNIT PO every week October 20, 2023 [...] every week ergocalciferol (Vitamin D2) 1.25 MG (55325 UT) capsule Take 50,000 Units by mouth [...] take 1 tablet by mouth once daily Folic Acid 1 mg tablet Active 1 MG PO Daily December 12, 2024 12:00am Complies with drug therapy Start: 12-12-2024 Folic Acid 1 m g [...] Start: 10-20-2023 take 2 tablets by mo [facility] once daily Hydroxychloroquine 200 mg tablet Active [...] 600 mg by mouth . Immunoglobulin G (18 sources) Human Immunoglobulin G Start: 12-12-2024 Start: [...] Start: 10-20-2023 take 4 tablets by mo [facility] once daily Metoprolol Tartrate 50 mg tablet [...] Discontinued Start: 01-19-[address] [facility] once daily naltrexone capsule 1 mg [...] 0.4 mg unde r the tongue. nystatin 323877 unt/ml oral suspension (20 sources) Polyene Antifungal Start: 5 take 4 mL by mouth four times [...] swallow Start: 07-25-2024 End: 08-08-2024 nystatin (Mycostatin) 222866 UNIT/ML suspension Indications: Rash and other nonspecific [...] Start: 11-13-2024 take 2 tablets by mo [facility] once daily Pantoprazole 20 mg tablet,delayed release [...] g 11 07/25/2024 Active Start: 08-16-2023 tacrolimus (ND OTOPIC) 0.1 % ointment Apply 1 Application [...] on above: Take 1 tablet by ce two times a day. tretinoin 0.25 mg/ml [...] (4 sources) take 1 tablet by ce every week Vitamin D 50 MCG (1999 [...] Discontinued Start: 10-07-2020 [facility] amLODIPine (NORVASC) 2.5 MG tablet Take 1 tablet by mouth daily 30 tablet 3 10/07/2020 Active azaTHIOprine 50 mg oral tablet (20 sources) Purine Antimetabolite Start: 05-24-2023 End: 11-13-2024 take 1 tablet by mouth three times daily Azathioprine 50 mg tablet Discontinued 50 MG PO Three times daily October 20, 2023 12:00am November 13, 2024 11:22am Start: 05-24-2023 End: 02-28-2025 take 3 tablets by mouth once daily azaTHIOprine (Imuran) 50 MG tablet Take 150 mg by mouth Daily 05/24/2023 02/28/2025 Discontinued (Therapy completed) Start: 05-24-2023 take 50 mg by mouth twice ankur y Azathioprine Active 50 MG PO Twice daily October 20, 2023 12:00am Start: 02-16-2023 take 3 tablets by mo [facility] three times daily azaTHIOprine (Imuran) 50 mg tablet Take 3 tablets (150 mg) by mouth 3 times a day. 02/16/2023 Active Start: 11-24-2022 End: 02-16-2023 take 3 tablets by mouth once daily at mealtime azaTHIOprine (IMURAN) 50 mg tablet Indications: Other systemic lupus erythematosus with other organ involvement (HCC) , 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 term care social worker 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 TAKE 3 TABLETS BY MOUTH DAILY WITH FOOD. HOLD IF ON ANTIBIOTICS OR ILL. 90 tablet 3 02/16/2023 Active Start: 08-19-2022 End: 11-24-2022 take 2 tablets by mouth once daily at mealtime azaTHIOprine (IMURAN) 50 mg tablet Indications: Other systemic lupus erythematosus with other organ involvement (HCC) , Encounter for fpc 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 Take 2tab daily [...] antibiotics or ill. TAKE 3 TABLETS BY [facility] DAILY WITH FOOD. HOLD IF ON ANTIBIOTICS OR ILL. belimumab 1,275 mg in NaCl 0.9% 250 mL (BENLYSTA) (3 sources) Start: 11-16-2024 End: 11-16-2024 1,275 mg (10 mg/kg/dose 127.5 kg), INTRAVENOUS, [...] 25 mg, INTRAVENOUS, ONCE, 1 dose, On 10/02/24 at 0900 Start: 09-18-2024 End: 09-18-2024 take [...] at bedtime. gentamicin 0.001 mg/mg topical ointment (16 sources) Start: 11-22-2023 End: 12-16-2023 Gentamicin 0.1 [...] 1 dose, On Wed11/29/24 at 1030, EXP: 1000 11/30/24 Refrigerate - Prepared as a 10% solution [...] 1:08pm Start: 06-24-2023 [facility] pravastatin (Pravachol) 20 MG [...] Start: 07-06-2023 take 1 capsule by mo [facility] three times daily pregabalin (Lyrica) 100 MG [...] mg/ml injectable suspension (20 sources) Corticosteroid Start: 025 End: triamcinolone acetonide (Kenalog) injection 2.5 mg [...] specified as recurrent] Onset: 4 09-22-2023 Episodic Malaise and fatigue (20 sources) [...] aftercare (1 source) Polypharmacy ; Translations: [Other fpc (current) drug therapy] Episodic Other aftercare (1 source) Long-term current use of drug therapy; Translations: [Encounter for fpc 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] 11-11-2023 Episodic Other [...] bleeding, unspecified] 03-23-2024 Chronic Other gastrointestinal disorders (20 sources) Diarrhea; Translations: [Diarrhea, unspecified] Onset: 4 09-22-2023 Episodic Other gastrointestinal disorders (3 sources) Diarrhea, unspecified; Translations: [Diarrhea] 09-22-2023 Episodic Other gastrointestinal disorders (10 sources) Abdominal mass; Translations: [Intra-abdominal and pelvic swelling, mass and lump, unspecified site] 12-12-2024 Episodic Other gastrointestinal disorders (10 sources) Burning sensation; Translations: [Other specified symptoms and signs involving the digestive system and abdomen] 12-12-2024 Episodic Other gastrointestinal disorders (10 sources) Abdominal bloating; Translations: [Abdominal distension (gaseous)] 12-12-2024 Episodic Other gastrointestinal disorders (10 sources) Constipation; Translations: [Constipation, unspecified] 12-12-2024 Episodic [...] [Supraventricular tachycardia, unspecified (CMS-HCC)] Onset: 4 Unclassified (4 sources) Call Dr. Donaldson office to schedule a follow up appointment if you do not already have one scheduled Past or Other Problems Problem Classification Problem Date Documented Date Episodic/Chronic Cardiac dysrhythmias (20 sources) Tachycardia, unspecified; Translations: [Tachycardia] Onset: 10-15-2021 Resolved: 07-26-2024 Episodic Coma; stupor; and brain damage (20 [...] 03-11-2022 03-10-2023 Episodic Deficiency and other anemia (20 sources) Iron deficiency anemia; Translations: [Other iron deficiency anemias] Onset: 06-16-2024 06-16-2024 Episodic Deficiency and other anemia (1 source) Other iron deficiency anemias; Translations: [Other iron deficiency anemia] Onset: 03-10-2023 Episodic Deficiency and other anemia (1 source) Other megaloblastic anemias, not elsewhere classified; Translations: [Megaloblastic anemia due to vitamin B12 deficiency] Onset: 03-04-2022 Episodic Diabetes mellitus without complication (20 sources) [...] (20 sources) Drug therapy finding; Translations: [Other long term care social worker (current) drug therapy] Onset: 03-05-2021 Episodic Other aftercare (20 sources) H/O: high risk medication; Translations: [Other long term care social worker (current) drug therapy] Onset: 06-15-2022 06-15-2022 Episodic Other aftercare (1 source) Other long term care social worker (current) drug therapy; Translations: [OTH [facility] 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 THERAPY] Onset: 03-23-2022 Episodic Other aftercare (20 sources) Long-term current use of systemic steroid; Translations: [salvage determiner (current) use of systemic steroids] Onset: 02-04-2023 [...] of breath] Onset: 07-13-2023 07-13-2023 Episodic Other nervous system disorders (20 [...] metabolic disease] Onset: 10-05-2023 10-05-2023 Episodic Other screening for suspected conditions [...] Translations: [FLUSHING] Onset: 10-15-2021 Resolved: 11-26-2021 Episodic Residual codes; unclassified (1 source) Family history of ischemic heart disease and other diseases of the circulatory system; Translations: [Family history of aortic aneurysm] Onset: 09-19-2024 Episodic Unclassified (2 sources) Onset: 07-13-2023 Resolved: [...] negative bacilli - 2 Days PERFORMED BY: [place] [address] PATHOLOGIST BILINGUAL [employer] TEACHER TIM FOOTE M.D. Normal [facility] Comment on above: Performed By: #### C UU #### [address] Urine cultureOrdered By: Abilio Ji on 02-26-2025 Bacteria identified Cx Nom (U) bacilli - 2 Days [facility] CBC W Auto Differential pane l (Bld)on 02-21-2025 Basophils (Bld) [#/Vol] 0.09 10*3/uL Normal <0.11 [facility] Comment on above: Order Comment: Speci men Type: BLOOD SPECIMENOrdering Facility: [facility] Address: [address] [place] [address] Performed By: #### 5 7021-8 ####[facility] LABCLIA [id number] [place] [address] Basophils/100 WBC (Bld) 0.7 % Normal [facility] Comment on above: Order Comment: Speci men Type: BLOOD SPECIMENOrdering Facility: [facility] Address: [address] [place] [address] Performed By: #### 5 7021-8 ####[facility] LABCLIA [id number] [place] [address] Differential cell count method Nom (Bld) Auto Normal [facility] Comment on above: Order Comment: Speci men Type: BLOOD SPECIMENOrdering Facility: [facility] Address: [address] [place] [address] Performed By: #### 5 7021-8 ####[facility] LABCLIA [id number] [place] [address] Eosinophils (Bld) [#/Vol] 0.11 10*3/uL Normal <0.46 [facility] Comment on above: Order Comment: Speci men Type: BLOOD SPECIMENOrdering Facility: [facility] Address: [address] [place] [address] Performed By: #### 5 7021-8 ####[facility] LABCLIA [id number] [place] [address] Eosinophils/100 WBC (Bld) 0.8 % Normal [facility] Comment on above: Order Comment: Speci men Type: BLOOD SPECIMENOrdering Facility: [facility] Address: [address] [place] [address] Performed By: #### 5 7021-8 ####[facility] LABCLIA [id number] [place] [address] Erythrocyte distribution width (RBC) [Ratio] 14.3 % Normal 11.5-15.0 [facility] Comment on above: Order Comment: Speci men Type: BLOOD SPECIMENOrdering Facility: [facility] Address: [address] [place] [address] Performed By: #### 5 7021-8 ####[facility] LABCLIA [id number] [place] [address] Hematocrit (Bld) [Volume fraction] 46.0 % Normal 36.0-46.0 [facility] Comment on above: Order Comment: Speci men Type: BLOOD SPECIMENOrdering Facility: [facility] Address: [address] [place] [address] Performed By: #### 5 7021-8 ####[facility] LABCLIA [id number] [place] [address] Hemoglobin (Bld) [Mass/Vol] 15.1 g/dL Normal 11.5-15.5 [facility] Comment on above: Order Comment: Speci men Type: BLOOD SPECIMENOrdering Facility: [facility] Address: [address] [place] [address] Performed By: #### 5 7021-8 ####[facility] LABCLIA [id number] [place] [address] Immature granulocytes (Bld) [#/Vol] 0.21 10*3/uL High <0.10 [facility] Comment on above: Order Comment: Speci men Type: BLOOD SPECIMENOrdering Facility: [facility] Address: [address] [place] [address] Performed By: #### 5 7021-8 ####[facility] LABCLIA [id number] [place] [address] Immature granulocytes/100 WBC (Bld) 1.6 % Normal [facility] Comment on above: Order Comment: Speci men Type: BLOOD SPECIMENOrdering Facility: [facility] Address: [address] [place] [address] Performed By: #### 5 7021-8 ####[facility] LABCLIA [id number] [place] [address] Lymphocytes (Bld) [#/Vol] 1.89 10*3/uL Normal 1.00-4.00 [facility] Comment on above: Order Comment: Speci men Type: BLOOD SPECIMENOrdering Facility: [facility] Address: [address] [place] [address] Performed By: #### 5 7021-8 ####[facility] LABCLIA [id number] [place] [address] Lymphocytes/100 WBC (Bld) 14.4 % Normal [facility] Comment on above: Order Comment: Speci men Type: BLOOD SPECIMENOrdering Facility: [facility] Address: [address] [place] [address] Performed By: #### 5 7021-8 ####[facility] LABCLIA [id number] [place] [address] MCH (RBC) [Entitic mass] 31.7 pg Normal 26.0-34.0 [facility] Comment on above: Order Comment: Speci men Type: BLOOD SPECIMENOrdering Facility: [facility] Address: [address] [place] [address] Performed By: #### 5 7021-8 ####[facility] LABCLIA [id number] [place] [address] MCHC (RBC) [Mass/Vol] 32.8 g/dL Normal 30.5-36.0 [facility] Comment on above: Order Comment: Speci men Type: BLOOD SPECIMENOrdering Facility: [facility] Address: [address] [place] [address] Performed By: #### 5 7021-8 ####[facility] LABCLIA [id number] [place] [address] MCV (RBC) [Entitic vol] 96.4 fL Normal 80.0-100.0 [facility] Comment on above: Order Comment: Speci men Type: BLOOD SPECIMENOrdering Facility: [facility] Address: [address] [place] [address] Performed By: #### 5 7021-8 ####[facility] LABCLIA [id number] [place] [address] Monocytes (Bld) [#/Vol] 0.92 10*3/uL High <0.87 [facility] Comment on above: Order Comment: Speci men Type: BLOOD SPECIMENOrdering Facility: [facility] Address: [address] [place] [address] Performed By: #### 5 7021-8 ####[facility] LABCLIA [id number] [place] [address] Monocytes/100 WBC (Bld) 7.0 % Normal [facility] Comment on above: Order Comment: Speci men Type: BLOOD SPECIMENOrdering Facility: [facility] Address: [address] [place] [address] Performed By: #### 5 7021-8 ####[facility] LABCLIA [id number] [place] [address] Neutrophils (Bld) [#/Vol] 9.94 10*3/uL High 1.45-7.50 [facility] Comment on above: Order Comment: Speci men Type: BLOOD SPECIMENOrdering Facility: [facility] Address: [address] [place] [address] Performed By: #### 5 7021-8 ####[facility] LABCLIA [id number] [place] [address] Neutrophils/100 WBC (Bld) 75.5 % Normal [facility] Comment on above: Order Comment: Speci men Type: BLOOD SPECIMENOrdering Facility: [facility] Address: [address] [place] [address] Performed By: #### 5 7021-8 ####[facility] LABCLIA [id number] [place] [address] Nucleated RBC (Bld) [#/Vol] 10*3/uL Normal <0.01 [facility] Comment on above: Order Comment: Speci men Type: BLOOD SPECIMENOrdering Facility: [facility] Address: [address] [place] [address] Performed By: #### 5 7021-8 ####[facility] LABCLIA [id number] [place] [address] Nucleated RBC/100 WBC (Bld) [Ratio] 0.0 /100 WBC Normal [facility] Comment on above: Order Comment: Speci men Type: BLOOD SPECIMENOrdering Facility: [facility] Address: [address] [place] [address] Performed By: #### 5 7021-8 ####[facility] LABIA [id number] [place] [address] Platelet mean volume (Bld) [Entitic vol] 9.9 fL Normal 9.0-12.7 [facility] Comment on above: Order Comment: Speci men Type: BLOOD SPECIMENOrdering Facility: [facility] Address: [address] [place] [address] Performed By: #### 5 7021-8 ####[facility] LABCLIA [id number] [place] [address] Platelets (Bld) [#/Vol] 305 10*3/uL Normal 150-400 [facility] Comment on above: Order Comment: Speci men Type: BLOOD SPECIMENOrdering Facility: [facility] Address: [address] [place] [address] Performed By: #### 5 7021-8 ####[facility] LABIA [id number] [place] [address] RBC (Bld) [#/Vol] 4.77 10*6/uL Normal 3.90-5.20 [facility] Comment on above: Order Comment: Speci men Type: BLOOD SPECIMENOrdering Facility: [facility] Address: [address] [place] [address] Performed By: #### 5 7021-8 ####[facility] LABCLIA [id number] [place] [address] WBC (Bld) [#/Vol] 13.16 10*3/uL High 3.70-11.00 [facility] Comment on above: Order Comment: Speci men Type: BLOOD SPECIMENOrdering Facility: [facility] Address: [address] [place] [address] Performed By: #### 5 7021-8 ####[facility] LABCLIA [id number] [place] [address] CNOVSPon 02-21-2025 CNOVSP Normal [facility] CNPNon 02-21-2025 CNPN Normal [facility] Comprehensive metabolic 2000 panelon 02-21-2025 Albumin [Mass/Vol] 4.3 g/dL Normal 3.9-4.9 [facility] Comment on above: Order Comment: Speci men Type: BLOOD SPECIMENOrdering Facility: [facility] Address: [address] [place] [address] Performed By: #### 2 4323-8 ####[facility] LABCLIA [id number] [place] [address] ALP [Catalytic activity/Vol] 83 U/L Normal 34-123 [facility] Comment on above: Order Comment: Speci men Type: BLOOD SPECIMENOrdering Facility: [facility] Address: [address] [place], [place] [address] Performed By: #### 2 4323-8 ####[facility] LABCLIA [id number] [place] [address] ALT [Catalytic activity/Vol] 49 U/L High 7-38 [facility] Comment on above: Order Comment: Speci men Type: BLOOD SPECIMENOrdering Facility: [facility] Address: [address] [place] [address] Performed By: #### 2 4323-8 ####[facility] LABCLIA [id number] [place] [address] Anion gap [Moles/Vol] 17 mmol/L High 8-15 [facility] Comment on above: Order Comment: Speci men Type: BLOOD SPECIMENOrdering Facility: [facility] Address: [address] [place] [address] Performed By: #### 2 4323-8 ####[facility] LABCLIA [id number] [place] [address] AST [Catalytic activity/Vol] 20 U/L Normal 13-35 [facility] Comment on above: Order Comment: Speci men Type: BLOOD SPECIMENOrdering Facility: [facility] Address: [address] [place] [address] Performed By: #### 2 4323-8 ####[facility] LABCLIA [id number] [place] [address] Bilirubin [Mass/Vol] 0.3 mg/dL Normal 0.2-1.3 [facility] Comment on above: Order Comment: Speci men Type: BLOOD SPECIMENOrdering Facility: [facility] Address: [address] [place] [address] Performed By: #### 2 4323-8 ####[facility] LABCLIA [id number] [place] [address] Calcium [Mass/Vol] 10.2 mg/dL Normal 8.5-10.2 [facility] Comment on above: Order Comment: Speci men Type: BLOOD SPECIMENOrdering Facility: [facility] Address: [address] [place] [address] Performed By: #### 2 4323-8 ####[facility] LABCLIA [id number] [place] [address] Chloride [Moles/Vol] 101 mmol/L Normal 98-107 [facility] Comment on above: Order Comment: Speci men Type: BLOOD SPECIMENOrdering Facility: [facility] Address: [address] [place] [address] Performed By: #### 2 4323-8 ####[facility] LABCLIA [id number] [place] [address] CO2 [Moles/Vol] 20 mmol/L Low 22-30 [facility] Comment on above: Order Comment: Speci men Type: BLOOD SPECIMENOrdering Facility: [facility] Address: [address] [place] [address] Performed By: #### 2 4323-8 ####[facility] LABCLIA [id number] [place] [address] Creatinine [Mass/Vol] 0.49 mg/dL Low 0.58-0.96 [facility] Comment on above: Order Comment: Speci men Type: BLOOD SPECIMENOrdering Facility: [facility] Address: [address] [place] [address] Performed By: #### 2 4323-8 ####[facility] LABCLIA [id number] [place] [address] eGFRcr SerPlBld CKD-EPI 2020 119 mL/min/1.73m??? Normal >=60 [facility] Comment on above: Order Comment: Speci men Type: BLOOD SPECIMENOrdering Facility: [facility] Address: [address] [place] [address] Result Comment: Erin mated Glomerular Filtration Rate [...] actual GFR. Performed By: #### 2 4323-8 ####[facility] LABCLIA [id number] [place] [address] Glucose [Mass/Vol] 248 mg/dL High 74-99 [facility] Comment on above: Order Comment: Speci men Type: BLOOD SPECIMENOrdering Facility: [facility] Address: [address] [place] [address] Result Comment: The [place] Diabetes Association (ADA) [...] 2016.39(Suppl 1). Performed By: #### 2 4323-8 ####[facility] LABCLIA [id number] [place] [address] Potassium [Moles/Vol] 4.1 mmol/L Normal 3.7-5.1 [facility] Comment on above: Order Comment: Speci men Type: BLOOD SPECIMENOrdering Facility: [facility] Address: [address] [place] [address] Performed By: #### 2 4323-8 ####[facility] LABCLIA [id number] [place] [address] Protein [Mass/Vol] 7.6 g/dL Normal 6.3-8.0 [facility] Comment on above: Order Comment: Speci men Type: BLOOD SPECIMENOrdering Facility: [facility] Address: [address] [place], [place] [address] Performed By: #### 2 4323-8 ####[facility] LABCLIA [id number] [place] [address] Sodium [Moles/Vol] 138 mmol/L Normal 136-144 [facility] Comment on above: Order Comment: Speci men Type: BLOOD SPECIMENOrdering Facility: [facility] Address: [address] [place] [address] Performed By: #### 2 4323-8 ####[facility] LABCLIA [id number] [place] [address] Urea nitrogen [Mass/Vol] 16 mg/dL Normal 7-21 [facility] Comment on above: Order Comment: Speci men Type: BLOOD SPECIMENOrdering Facility: [facility] Address: [address] [place] [address] Performed By: #### 2 4323-8 ####[facility] LABCLIA [id number] [place] [address] Ferritin SerPl-mCncon 2024 Ferritin [Mass/Vol] 83.6 ng/mL Normal 14.7-205.1 [facility] Comment on above: Order Comment: Speci men Type: BLOOD SPECIMENOrdering Facility: [facility] Address: [address] [place] [address] Performed By: #### 5 0190-8, 4-8, 9, 2275-4 ####[facility] LABCLIA [id number] [place] [address] [place] Folate SerPl-mCncon 02-22-20 25 Folate [Mass/Vol] ng/mL Normal >4.7 [facility] Comment on above: Order Comment: Speci men Type: BLOOD SPECIMENOrdering Facility: [facility] Address: [address] [place] [address] Result Comment: A re sult of > 20 ng/mL is not necessarily indicative of a pathologic or treatable condition: it reflects a limitation of the test methodology.Assay reference range: 4.8 to 24.2 ng/mL. Suitable for detection of folate deficiency.Reference:Folate III (Folate III) [package insert V 1.0 Indonesian]. [facility], [place], [place]: March 2015. Performed By: #### 5 0190-8, 2284-8, 2131-9, 6-4 ####[facility] LABCLIA [id number] [place] [address] [place] IMMUNOGLOBULINS,IGG,IGA,IGMo n 02-21-2025 IgA [Mass/Vol] 184 mg/dL Normal 70-400 [facility] Comment on above: Order Comment: Speci men Type: BLOOD SPECIMENOrdering Facility: [facility] Address: [address] [place] [address] Performed By: #### S ERIMM ####[facility] LABCLIA [id number] [place] [address] [place] IgG [Mass/Vol] 610 mg/dL Low 700-1600 [facility] Comment on above: Order Comment: Speci men Type: BLOOD SPECIMENOrdering Facility: [facility] Address: [address] [place] [address] Performed By: #### S ERIMM ####[facility] LABCLIA [id number] [place] [address] [place] IgM [Mass/Vol] 454 mg/dL High 40-230 [facility] Comment on above: Order Comment: Speci men Type: BLOOD SPECIMENOrdering Facility: [facility] Address: [address] [place] [address] Performed By: #### S ERIMM ####[facility] LABCLIA [id number] [place] [address] [place] Iron and Iron binding capaci ty panelon 02-21-2025 Iron [Mass/Vol] 156 ug/dL Normal 41-186 [facility] Comment on above: Order Comment: Speci men Type: BLOOD SPECIMENOrdering Facility: [facility] Address: [address] [place] [address] Performed By: #### 5 0190-8, 2284-8, 2132-9, 2276-4 ####[facility] LABCLIA [id number] [place] [address] [place] Iron binding capacity [Mass/Vol] 443 ug/dL High 232-386 [facility] Comment on above: Order Comment: Speci men Type: BLOOD SPECIMENOrdering Facility: [facility] Address: [address] [place] [address] Performed By: #### 5 0190-8, 2284-8, 2131-9, 6-4 ####[facility] LABIA [id number] [place] [address] [place] Iron/TIBC [Molar ratio] 35.2 % Normal 15.0-57.0 [facility] Comment on above: Order Comment: Speci men Type: BLOOD SPECIMENOrdering Facility: [facility] Address: [address] [place] [address] Performed By: #### 5 0190-8, 4-8, 9, 2275-4 ####[facility] LABIA [id number] [place] [address] [place] Vit B12 [facility] 10-01-2 025 Cobalamin (Vitamin B12) [Mass/Vol] 694 pg/mL Normal 232-1245 [facility] Comment on above: Order Comment: Speci men Type: BLOOD SPECIMENOrdering Facility: [facility] Address: [address] [place] [address] Performed By: #### 5 0190-8, 4-8, 9, 4 ####[facility] LABIA [id number] [place] [id number] [place] CNPNon 02-12-2025 CNPN Normal [facility] HCG ( test) IA.lester d Ql (U)Ordered By: Adolfo Kang on 01-31-2025 HCG ( test) Ql (U) Negative [facility] HCG,Urineon 01-31-2025 Beta HCG ( test) Ql (U) Negative Normal [facility] Comment on above: Result Comment: PERF ORMED BY: [facility] [address] [place] [id number] PATHOLOGIST BILINGUAL [employer]ER TIM FOOTE M.D. Performed By: #### U HCG #### [facility] [address] [place] [id number] [facility] BI US BREAST LIMITED LEFTon 01-26-2025 [...] BY: Yassine Owens M.D. Normal Not Available CNPDede 01-18-2025 CNPN Normal [facility] 25(OH)D3 Ayala 2024 25-hydroxyvitamin D3 [Mass/Vol] 32.2 ng/mL Normal 31.0-80.0 [facility] Comment on above: Order Comment: Speci men Type: BLOOD SPECIMENOrdering Facility: [facility] Address: [address] [place] [address] Performed By: #### 1 989-3 ####[facility] LABCLIA [id number] [place] [address] [place] BLOOD TB SCREENon 01-11-2025 M. tuberculosis tuberculin stim IFN-g Ql (Bld) Negative Normal [facility] Comment on above: Order Comment: Speci men Type: BLOOD SPECIMENOrdering Facility: [facility] Address: [address] [place] [address] Performed By: #### I NFTBP ####[facility] LABCLIA [id number] [place] [address] [place] MITOGEN MINUS NIL >9.97 Normal >=0.50 [facility] Comment on above: Order Comment: Speci men Type: BLOOD SPECIMENOrdering Facility: [facility] Address: [address] [place] [address] Performed By: #### I NFTBP ####[facility] LABIA [id number] [place] [address] [place] TB GAMMA INTERPRETATION Normal [facility] Comment on above: Order Comment: Speci men Type: BLOOD SPECIMENOrdering Facility: [facility] Address: [address] [place] [address] Performed By: #### I NFTBP ####[facility] LABCLIA [id number] [place] [address] [place] TB NIL 0.03 IU/mL Normal <=8.00 [facility] Comment on above: Order Comment: Speci men Type: BLOOD SPECIMENOrdering Facility: [facility] Address: [address] [place] [address] Performed By: #### I NFTBP ####[facility] LABIA [id number] [place] [address] [place] TB1 AG MINUS NIL 0.01 IU/mL Normal <0.35 [facility] Comment on above: Order Comment: Speci men Type: BLOOD SPECIMENOrdering Facility: [facility] Address: [address] [place] [address] Performed By: #### I NFTBP ####[facility] LABIA [id number] [address] [place] [facility] TB2 AG MINUS NIL 0.01 IU/mL Normal <0.35 [facility] Comment on above: Order Comment: Speci men Type: BLOOD SPECIMENOrdering Facility: [facility] Address: [address] [place] [address] Performed By: #### I NFTBP ####[facility] LABIA [id number] [address] OF [facility] CBC panel Auto (Bld)on 01-11 Erythrocyte distribution width (RBC) [Ratio] 14.5 % 11.5 - 15.0 % [facility] Hematocrit (Bld) [Volume fraction] 41.5 % 36.0 - 46.0 % [facility] Hemoglobin (Bld) [Mass/Vol] 13.8 g/dL 11.5 - 15.5 g/dL [facility] Interpretation and review of laboratory results Abnormal [facility] MCH (RBC) [Entitic mass] 32.2 pg 26.0 - 34.0 pg [facility] MCHC (RBC) [Mass/Vol] 33.3 g/dL 30.5 - 36.0 g/dL [facility] MCV (RBC) [Entitic vol] 96.7 fL 80.0 - 100.0 fL [facility] Nucleated RBC (Bld) [#/Vol] NINF [facility] Platelet mean volume (Bld) [Entitic vol] 10.6 fL 9.0 - 12.7 fL [facility] Platelets (Bld) [#/Vol] 265 10*3/uL [facility] RBC (Bld) [#/Vol] 4.29 10*6/uL 3.90 - 5.2 0 m/uL [facility] WBC (Bld) [#/Vol] 12.61 10*3/uL [facility] Erythrocyte distribution width (RBC) [Ratio] 14.5 % Normal 11.5-15.0 [facility] Comment on above: Order Comment: Speci men Type: BLOOD SPECIMENOrdering Facility: [facility] Address: [address] [place] [address] Performed By: #### 5 8410-2 ####[facility] LABCLIA [id number] [place] [address] Hematocrit (Bld) [Volume fraction] 41.5 % Normal 36.0-46.0 [facility] Comment on above: Order Comment: Speci men Type: BLOOD SPECIMENOrdering Facility: [facility] Address: [address] [place] [address] Performed By: #### 5 8410-2 ####[facility] LABCLIA [id number] [place] [address] Hemoglobin (Bld) [Mass/Vol] 13.8 g/dL Normal 11.5-15.5 [facility] Comment on above: Order Comment: Speci men Type: BLOOD SPECIMENOrdering Facility: [facility] Address: [address] [place] [address] Performed By: #### 5 8410-2 ####[facility] LABCLIA [id number] [place] [address] MCH (RBC) [Entitic mass] 32.2 pg Normal 26.0-34.0 [facility] Comment on above: Order Comment: Speci men Type: BLOOD SPECIMENOrdering Facility: [facility] Address: [address] [place] [address] Performed By: #### 5 8410-2 ####[facility] LABCLIA [id number] [place] [address] MCHC (RBC) [Mass/Vol] 33.3 g/dL Normal 30.5-36.0 [facility] Comment on above: Order Comment: Speci men Type: BLOOD SPECIMENOrdering Facility: [facility] Address: [address] [place] [address] Performed By: #### 5 8410-2 ####[facility] LABCLIA [id number] [place] [address] MCV (RBC) [Entitic vol] 96.7 fL Normal 80.0-100.0 [facility] Comment on above: Order Comment: Speci men Type: BLOOD SPECIMENOrdering Facility: [facility] Address: [address] [place] [address] Performed By: #### 5 8410-2 ####[facility] LABCLIA [id number] [place] [address] Nucleated RBC (Bld) [#/Vol] 10*3/uL Normal <0.01 [facility] Comment on above: Order Comment: Speci men Type: BLOOD SPECIMENOrdering Facility: [facility] Address: [address] [place] [address] Performed By: #### 5 8410-2 ####[facility] LABCLIA [id number] [place] [address] Platelet mean volume (Bld) [Entitic vol] 10.6 fL Normal 9.0-12.7 [facility] Comment on above: Order Comment: Speci men Type: BLOOD SPECIMENOrdering Facility: [facility] Address: [address] [place] [address] Performed By: #### 5 8410-2 ####[facility] LABCLIA [id number] [place] [address] Platelets (Bld) [#/Vol] 265 10*3/uL Normal 150-400 [facility] Comment on above: Order Comment: Speci men Type: BLOOD SPECIMENOrdering Facility: [facility] Address: [address] [place] [address] Performed By: #### 5 8410-2 ####[facility] LABCLIA [id number] [place] [address] RBC (Bld) [#/Vol] 4.29 10*6/uL Normal 3.90-5.20 [facility] Comment on above: Order Comment: Speci men Type: BLOOD SPECIMENOrdering Facility: [facility] Address: [address] [place] [address] Performed By: #### 5 8410-2 ####[facility] LABCLIA [id number] [place] [address] WBC (Bld) [#/Vol] 12.61 10*3/uL High 3.70-11.00 [facility] Comment on above: Order Comment: Speci men Type: BLOOD SPECIMENOrdering Facility: [facility] Address: [address] [place] [address] Performed By: #### 5 8410-2 ####[facility] LABCLIA [id number] [place] [address] CRP [facility] 01[facility]2025 CRP [Mass/Vol] mg/L Normal <0.9 [facility] Comment on above: Order Comment: Speci men Type: BLOOD SPECIMENOrdering Facility: [facility] Address: [address] [place], [place] [address] Performed By: #### 1 988-5, 2132-9 ####[facility] LABCLIA [id number] [place] [id number] [facility] Comprehensive metabolic 2000 panelOrdered By: Josse Merlos on 01-11-2025 Albumin [Mass/Vol] 3.9 g/dL 3.9 - 4.9 g/dL [facility] ALP [Catalytic activity/Vol] 83 U/L 34 - 123 U/L [facility] ALT [Catalytic activity/Vol] 42 U/L High 7 - 38 U/L [facility] Anion gap [Moles/Vol] 10 mmol/L 8 - 15 mmol/L [facility] AST [Catalytic activity/Vol] 22 U/L 13 - 35 U/L [facility] Bilirubin [Mass/Vol] 0.2 mg/dL 0.2 - 1 .3 mg/dL [facility] Calcium [Mass/Vol] 9.7 mg/dL 8.5 - 10. 2 mg/dL [facility] Chloride [Moles/Vol] 103 mmol/L 98 - 10 7 mmol/L [facility] CO2 [Moles/Vol] 23 mmol/L 22 - 30 mmol/L [facility] Creatinine [Mass/Vol] 0.50 mg/dL Low 0.58 - 0.96 mg/dL [facility] GFR/1.73 sq M.predicted among non-blacks MDRD (S/P/Bld) [Vol rate/Area] 119 mL/min/{1.73_m2} - PINF [facility] Comment on above: Estimated Glomerular [...] 221 mg/dL High 74 - 99 mg/dL [facility] Comment on above: The [place] Diabete s Association (ADA) provides guidance for [...] [place] Diabetes [employer]. Diabetes Care. 2016.39(Suppl 1). Interpretation and review of laboratory results Abnormal [facility] Potassium [Moles/Vol] 4.1 mmol/L 3.7 - 5.1 mmol/L [facility] Protein [Mass/Vol] 6.8 g/dL 6.3 - 8.0 g/dL [facility] Sodium [Moles/Vol] 136 mmol/L 136 - 144 mmol/L [facility] Urea nitrogen [Mass/Vol] 15 mg/dL 7 - 21 mg/dL [facility] Comprehensive metabolic 2000 panelon 01-11-2025 Albumin [Mass/Vol] 3.9 g/dL Normal 3.9-4.9 [facility] Comment on above: Order Comment: Speci men Type: BLOOD SPECIMENOrdering Facility: [facility] Address: [address] [place] [address] Performed By: #### 2 4323-8 ####[facility] LABCLIA [id number] [place] [address] ALP [Catalytic activity/Vol] 83 U/L Normal 34-123 [facility] Comment on above: Order Comment: Speci men Type: BLOOD SPECIMENOrdering Facility: [facility] Address: [address] [place] [address] Performed By: #### 2 4323-8 ####[facility] LABCLIA [id number] [place] [address] ALT [Catalytic activity/Vol] 42 U/L High 7-38 [facility] Comment on above: Order Comment: Speci men Type: BLOOD SPECIMENOrdering Facility: [facility] Address: [address] [place] [address] Performed By: #### 2 4323-8 ####[facility] LABCLIA [id number] [place] [address] Anion gap [Moles/Vol] 10 mmol/L Normal 8-15 [facility] Comment on above: Order Comment: Speci men Type: BLOOD SPECIMENOrdering Facility: [facility] [facility] Address: [address] [place] [address] Performed By: #### 2 4323-8 ####[facility] LABCLIA [id number] [place] [address] AST [Catalytic activity/Vol] 22 U/L Normal 13-35 [facility] Comment on above: Order Comment: Speci men Type: BLOOD SPECIMENOrdering Facility: [facility] Address: [address] [place] [address] Performed By: #### 2 4323-8 ####[facility] LABCLIA [id number] [place] [address] Bilirubin [Mass/Vol] 0.2 mg/dL Normal 0.2-1.3 [facility] Comment on above: Order Comment: Speci men Type: BLOOD SPECIMENOrdering Facility: [facility] Address: [address] [place] [address] Performed By: #### 2 4323-8 ####[facility] LABCLIA [id number] [place] [address] Calcium [Mass/Vol] 9.7 mg/dL Normal 8.5-10.2 [facility] Comment on above: Order Comment: Speci men Type: BLOOD SPECIMENOrdering Facility: [facility] Address: [address] [place] [address] Performed By: #### 2 4323-8 ####[facility] LABCLIA [id number] [place] [address] Chloride [Moles/Vol] 103 mmol/L Normal 98-107 [facility] Comment on above: Order Comment: Speci men Type: BLOOD SPECIMENOrdering Facility: [facility] Address: [address] [place] [address] Performed By: #### 2 4323-8 ####[facility] LABCLIA [id number] [place] [address] CO2 [Moles/Vol] 23 mmol/L Normal 22-30 [facility] Comment on above: Order Comment: Speci men Type: BLOOD SPECIMENOrdering Facility: [facility] Address: [address] [place] [address] Performed By: #### 2 4323-8 ####[facility] LABCLIA [id number] [place] [address] Creatinine [Mass/Vol] 0.50 mg/dL Low 0.58-0.96 [facility] Comment on above: Order Comment: Speci men Type: BLOOD SPECIMENOrdering Facility: [facility] Address: [address] [place] [address] Performed By: #### 2 4323-8 ####[facility] LABCLIA [id number] [place] [address] eGFRcr SerPlBld CKD-EPI 2020 119 mL/min/1.73m??? Normal >=60 [facility] Comment on above: Order Comment: Speci men Type: BLOOD SPECIMENOrdering Facility: [facility] Address: [address] [place] [address] Result Comment: Erin mated Glomerular Filtration Rate [...] actual GFR. Performed By: #### 2 4323-8 ####[facility] LABCLIA [id number] [place] [address] Glucose [Mass/Vol] 221 mg/dL High 74-99 [facility] Comment on above: Order Comment: Speci men Type: BLOOD SPECIMENOrdering Facility: [facility] Address: [address] [place] [address] Result Comment: The [place] [employer] (ADA) [...] 2016.39(Suppl 1). Performed By: #### 2 4323-8 ####[facility] LABCLIA [id number] [place] [address] Potassium [Moles/Vol] 4.1 mmol/L Normal 3.7-5.1 [facility] Comment on above: Order Comment: Speci men Type: BLOOD SPECIMENOrdering Facility: [facility] Address: [address] [place] [address] Performed By: #### 2 4323-8 ####[facility] LABCLIA [id number] [place] [address] Protein [Mass/Vol] 6.8 g/dL Normal 6.3-8.0 [facility] Comment on above: Order Comment: Speci men Type: BLOOD SPECIMENOrdering Facility: [facility] Address: [address] [place] [address] Performed By: #### 2 4323-8 ####[facility] LABCLIA [id number] [place] [address] Sodium [Moles/Vol] 136 mmol/L Normal 136-144 [facility] Comment on above: Order Comment: Speci men Type: BLOOD SPECIMENOrdering Facility: [facility] Address: [address] [place] [address] Performed By: #### 2 4323-8 ####[facility] LABCLIA [id number] [place] [address] Urea nitrogen [Mass/Vol] 15 mg/dL Normal 7-21 [facility] Comment on above: Order Comment: Speci men Type: BLOOD SPECIMENOrdering Facility: [facility] Address: [address] [place] [address] Performed By: #### 2 4323-8 ####[facility] LABCLIA [id number] [place] [address] ESR Westergren method (Bld) [Velocity]on 01-11-2025 ESR (Bld) [Velocity] 34 mm/h High 0-20 [facility] Comment on above: Order Comment: Speci men Type: BLOOD SPECIMENOrdering Facility: [facility] Address: [address] [place], [place] [address] Performed By: #### 4 537-7 ####[facility] LABCLIA [id number] [place] [address] [place] HBV core Ab Ser Qlon 025 HBV core Ab Ql (S) Negative Normal Negative [facility] Comment on above: Order Comment: Speci men Type: BLOOD SPECIMENOrdering Facility: [facility] Address: [address] [place] [address] Result Comment: No e vidence of current or past infection with Hepatitis B virus. Should recent infection be suspected, repeat testing may be considered 3-4 weeks after this draw. Performed By: #### 5 195-3, 46164-5, 61075-0 ####[facility] LABCLIA [id number] [address] [facility] HBV surface Ab Ql (S)on 12-23 HBV surface Ab Qn (S) 177.77 mIU/mL Normal [facility] Comment on above: Order Comment: Speci men Type: BLOOD SPECIMENOrdering Facility: [facility] Address: [address] [place] [address] Result Comment: <8 m IU/mL: No serological evidence of immunity to Hepatitis B Virus.>/= 8 to <12 mIU/mL: No serological evidence of immunity to Hepatitis B Virus.>/= 12 mIU/mL: Consistent with serological evidence of immunity to Hepatitis B Virus. Performed By: #### 5 195-3, 49590-4, 81426-2 ####[facility] LABCLIA [id number] [address] [place] HBV surface Ab Ser Qlon 12-23 HBV surface Ab Ql (S) Positive Normal [facility] Comment on above: Order Comment: Speci men Type: BLOOD SPECIMENOrdering Facility: [facility] Address: [address] [place] [address] Result Comment: Cons istent with serological evidence of immunity to Hepatitis B Virus. Performed By: #### 5 195-3, 15865-2, 38563-3 ####[facility] LABCLIA [id number] [place] [address] [place] HBV surface Ag Ser Qlon 12-23 HBV surface Ag Ql (S) Negative Normal Negative [facility] Comment on above: Order Comment: Speci men Type: BLOOD SPECIMENOrdering Facility: [facility] Address: [address] [place] [address] Performed By: #### 5 195-3, 49948-6, 90451-9 ####[facility] LABIA [id number] [place] [address] [place] HCV Ab Ser Qlon 01-11-2025 HCV Ab Ql (S) Negative Normal Negative [facility] Comment on above: Order Comment: Speci men Type: BLOOD SPECIMENOrdering Facility: [facility] Address: [address] [place] [address] Result Comment: The result suggests no evidence of infection with Hepatitis C virus. Should recent infection be suspected, repeat testing may be considered 4-6 weeks after this draw. Performed By: #### 1 6128-1 ####[facility] LABIA [id number] [place] [address] [place] Vit B12 SerPl-mCncon 025 Cobalamin (Vitamin B12) [Mass/Vol] 710 pg/mL Normal 232-1245 [facility] Comment on above: Order Comment: Speci men Type: BLOOD SPECIMENOrdering Facility: [facility] Address: [address] [place] [address] Performed By: #### 1 988-5, 2132-9 ####[facility] LABIA [id number] [place] [address] [place] CBC W Auto Differential pane l (Bld)on 11-29-2024 Basophils (Bld) [#/Vol] 0.09 10*3/uL Normal <0.11 [facility] Comment on above: Order Comment: Speci men Type: BLOOD SPECIMENOrdering Facility: [facility] Address: [address] [place] [address] Performed By: #### 5 7021-8 ####[facility] LABCLIA [id number] [place] [address] Basophils/100 WBC (Bld) 0.7 % Normal [facility] Comment on above: Order Comment: Speci men Type: BLOOD SPECIMENOrdering Facility: [facility] Address: [address] [place] [address] Performed By: #### 5 7021-8 ####[facility] LABCLIA [id number] [place] [address] Differential cell count method Nom (Bld) Auto Normal [facility] Comment on above: Order Comment: Speci men Type: BLOOD SPECIMENOrdering Facility: [facility] Address: [address] [place] [address] Performed By: #### 5 7021-8 ####[facility] LABCLIA [id number] [place] [address] Eosinophils (Bld) [#/Vol] 0.09 10*3/uL Normal <0.46 [facility] Comment on above: Order Comment: Speci men Type: BLOOD SPECIMENOrdering Facility: [facility] Address: [address] [place] [address] Performed By: #### 5 7021-8 ####[facility] LABCLIA [id number] [place] [address] Eosinophils/100 WBC (Bld) 0.7 % Normal [facility] Comment on above: Order Comment: Speci men Type: BLOOD SPECIMENOrdering Facility: [facility] Address: [address] [place] [address] Performed By: #### 5 7021-8 ####[facility] LABCLIA [id number] [place] [address] Erythrocyte distribution width (RBC) [Ratio] 14.8 % Normal 11.5-15.0 [facility] Comment on above: Order Comment: Speci men Type: BLOOD SPECIMENOrdering Facility: [facility] Address: [address] [place] [address] Performed By: #### 5 7021-8 ####[facility] LABCLIA [id number] [place] [address] Hematocrit (Bld) [Volume fraction] 42.9 % Normal 36.0-46.0 [facility] Comment on above: Order Comment: Speci men Type: BLOOD SPECIMENOrdering Facility: [facility] Address: [address] [place] [address] Performed By: #### 5 7021-8 ####[facility] LABCLIA [id number] [place] [address] Hemoglobin (Bld) [Mass/Vol] 14.0 g/dL Normal 11.5-15.5 [facility] Comment on above: Order Comment: Speci men Type: BLOOD SPECIMENOrdering Facility: [facility] Address: [address] [place] [address] Performed By: #### 5 7021-8 ####[facility] LABCLIA [id number] [place] [address] Immature granulocytes (Bld) [#/Vol] 0.18 10*3/uL High <0.10 [facility] Comment on above: Order Comment: Speci men Type: BLOOD SPECIMENOrdering Facility: [facility] Address: [address] [place] [address] Performed By: #### 5 7021-8 ####[facility] LABCLIA [id number] [place] [address] Immature granulocytes/100 WBC (Bld) 1.5 % Normal [facility] Comment on above: Order Comment: Speci men Type: BLOOD SPECIMENOrdering Facility: [facility] Address: [address] [place] [address] Performed By: #### 5 7021-8 ####[facility] LABCLIA [id number] [place] [address] Lymphocytes (Bld) [#/Vol] 1.99 10*3/uL Normal 1.00-4.00 [facility] Comment on above: Order Comment: Speci men Type: BLOOD SPECIMENOrdering Facility: [facility] Address: [address] [place] [address] Performed By: #### 5 7021-8 ####[facility] LABCLIA [id number] [place] [address] Lymphocytes/100 WBC (Bld) 16.4 % Normal [facility] Comment on above: Order Comment: Speci men Type: BLOOD SPECIMENOrdering Facility: [facility] Address: [address] [place] [address] Performed By: #### 5 7021-8 ####[facility] LABCLIA [id number] [place] [address] MCH (RBC) [Entitic mass] 31.7 pg Normal 26.0-34.0 [facility] Comment on above: Order Comment: Speci men Type: BLOOD SPECIMENOrdering Facility: [facility] Address: [address] [place] [address] Performed By: #### 5 7021-8 ####[facility] LABCLIA [id number] [place] [address] MCHC (RBC) [Mass/Vol] 32.6 g/dL Normal 30.5-36.0 [facility] Comment on above: Order Comment: Speci men Type: BLOOD SPECIMENOrdering Facility: [facility] Address: [address] [place] [address] Performed By: #### 5 7021-8 ####[facility] LABCLIA [id number] [place] [address] MCV (RBC) [Entitic vol] 97.1 fL Normal 80.0-100.0 [facility] Comment on above: Order Comment: Speci men Type: BLOOD SPECIMENOrdering Facility: [facility] Address: [address] [place] [address] Performed By: #### 5 7021-8 ####[facility] LABCLIA [id number] [place] [address] Monocytes (Bld) [#/Vol] 0.67 10*3/uL Normal <0.87 [facility] Comment on above: Order Comment: Speci men Type: BLOOD SPECIMENOrdering Facility: [facility] Address: [address] [place] [address] Performed By: #### 5 7021-8 ####[facility] LABCLIA [id number] [place] [address] Monocytes/100 WBC (Bld) 5.5 % Normal [facility] Comment on above: Order Comment: Speci men Type: BLOOD SPECIMENOrdering Facility: [facility] Address: [address] [place] [address] Performed By: #### 5 7021-8 ####[facility] LABCLIA [id number] [place] [address] Neutrophils (Bld) [#/Vol] 9.15 10*3/uL High 1.45-7.50 [facility] Comment on above: Order Comment: Speci men Type: BLOOD SPECIMENOrdering Facility: [facility] Address: [address] [place] [address] Performed By: #### 5 7021-8 ####[facility] LABCLIA [id number] [place] [address] Neutrophils/100 WBC (Bld) 75.2 % Normal [facility] Comment on above: Order Comment: Speci men Type: BLOOD SPECIMENOrdering Facility: [facility] Address: [address] [place] [address] Performed By: #### 5 7021-8 ####[facility] LABCLIA [id number] [place] [address] Nucleated RBC (Bld) [#/Vol] 10*3/uL Normal <0.01 [facility] Comment on above: Order Comment: Speci men Type: BLOOD SPECIMENOrdering Facility: [facility] Address: [address] [place] [address] Performed By: #### 5 7021-8 ####[facility] LABCLIA [id number] [place] [address] Nucleated RBC/100 WBC (Bld) [Ratio] 0.0 /100 WBC Normal [facility] Comment on above: Order Comment: Speci men Type: BLOOD SPECIMENOrdering Facility: [facility] Address: [address] [place] [address] Performed By: #### 5 7021-8 ####[facility] LABCLIA [id number] [place] [address] Platelet mean volume (Bld) [Entitic vol] 9.7 fL Normal 9.0-12.7 [facility] Comment on above: Order Comment: Speci men Type: BLOOD SPECIMENOrdering Facility: [facility] Address: [address] [place] [address] Performed By: #### 5 7021-8 ####[facility] LABCLIA [id number] [place] [address] Platelets (Bld) [#/Vol] 281 10*3/uL Normal 150-400 [facility] Comment on above: Order Comment: Speci men Type: BLOOD SPECIMENOrdering Facility: [facility] Address: [address] [place] [address] Performed By: #### 5 7021-8 ####[facility] LABCLIA [id number] [place] [address] RBC (Bld) [#/Vol] 4.42 10*6/uL Normal 3.90-5.20 [facility] Comment on above: Order Comment: Speci men Type: BLOOD SPECIMENOrdering Facility: [facility] Address: [address] [place] [address] Performed By: #### 5 7021-8 ####[facility] LABCLIA [id number] [place] [address] WBC (Bld) [#/Vol] 12.17 10*3/uL High 3.70-11.00 [facility] Comment on above: Order Comment: Speci men Type: BLOOD SPECIMENOrdering Facility: [facility] Address: [address] [place] [address] Performed By: #### 5 7021-8 ####[facility] LABCLIA [id number] [place] [address] CNOVSPon 11-29-2024 CNOVSP Normal [facility] metabolic 2000 panelon 11-29-2024 Albumin [Mass/Vol] 4.1 g/dL Normal 3.9-4.9 [facility] Comment on above: Order Comment: Speci men Type: BLOOD SPECIMENOrdering Facility: [facility] Address: [address] [place] [address] Performed By: #### 2 4323-8 ####[facility] LABCLIA [id number] [place] [address] ALP [Catalytic activity/Vol] 61 U/L Normal 34-123 [facility] Comment on above: Order Comment: Speci men Type: BLOOD SPECIMENOrdering Facility: [facility] Address: [address] [place] [address] Performed By: #### 2 4323-8 ####[facility] LABCLIA [id number] [place] [address] ALT [Catalytic activity/Vol] 39 U/L High 7-38 [facility] Comment on above: Order Comment: Speci men Type: BLOOD SPECIMENOrdering Facility: [facility] Address: [address] [place] [address] Performed By: #### 2 4323-8 ####[facility] LABCLIA [id number] [place] [address] Anion gap [Moles/Vol] 13 mmol/L Normal 8-15 [facility] Comment on above: Order Comment: Speci men Type: BLOOD SPECIMENOrdering Facility: [facility] Address: [address] [place] [address] Performed By: #### 2 4323-8 ####[facility] LABCLIA [id number] [place] [address] AST [Catalytic activity/Vol] 16 U/L Normal 13-35 [facility] Comment on above: Order Comment: Speci men Type: BLOOD SPECIMENOrdering Facility: [facility] Address: [address] [place] [address] Performed By: #### 2 4323-8 ####[facility] LABCLIA [id number] [place] [address] Bilirubin [Mass/Vol] 0.2 mg/dL Normal 0.2-1.3 [facility] Comment on above: Order Comment: Speci men Type: BLOOD SPECIMENOrdering Facility: [facility] Address: [address] [place] [address] Performed By: #### 2 4323-8 ####[facility] LABCLIA [id number] [place] [address] Calcium [Mass/Vol] 9.7 mg/dL Normal 8.5-10.2 [facility] Comment on above: Order Comment: Speci men Type: BLOOD SPECIMENOrdering Facility: [facility] Address: [address] [place] [address] Performed By: #### 2 4323-8 ####[facility] LABCLIA [id number] [place] [address] Chloride [Moles/Vol] 102 mmol/L Normal 98-107 [facility] Comment on above: Order Comment: Speci men Type: BLOOD SPECIMENOrdering Facility: [facility] Address: [address] [place] [address] Performed By: #### 2 4323-8 ####[facility] LABCLIA [id number] [place] [address] CO2 [Moles/Vol] 23 mmol/L Normal 22-30 [facility] Comment on above: Order Comment: Speci men Type: BLOOD SPECIMENOrdering Facility: [facility] Address: [address] [place] [address] Performed By: #### 2 4323-8 ####[facility] LABCLIA [id number] [place] [address] Creatinine [Mass/Vol] 0.58 mg/dL Normal 0.58-0.96 [facility] Comment on above: Order Comment: Speci men Type: BLOOD SPECIMENOrdering Facility: [facility] Address: [address] [place] [address] Performed By: #### 2 4323-8 ####[facility] LABCLIA [id number] [place] [address] Creatinine and Glomerular filtration rate.predicted panel (S/P/Bld) 115 mL/min/1.73m??? Normal >=60 [facility] Comment on above: Order Comment: Speci men Type: BLOOD SPECIMENOrdering Facility: [facility] Address: [address] [place] [address] Result Comment: Erin mated Glomerular Filtration Rate [...] actual GFR. Performed By: #### 2 4323-8 ####[facility] LABCLIA [id number] [place] [address] Glucose [Mass/Vol] 233 mg/dL High 74-99 [facility] Comment on above: Order Comment: Speci men Type: BLOOD SPECIMENOrdering Facility: [facility] Address: [address] [place] [address] Result Comment: The [place] [employer] (ADA) [...] 2016.39(Suppl 1). Performed By: #### 2 4323-8 ####[facility] LABCLIA [id number] [place] [address] Potassium [Moles/Vol] 4.0 mmol/L Normal 3.7-5.1 [facility] Comment on above: Order Comment: Speci men Type: BLOOD SPECIMENOrdering Facility: [facility] Address: [address] [id number] Performed By: #### 2 4323-8 ####[facility] LABCLIA [id number] [place] [address] Protein [Mass/Vol] 7.0 g/dL Normal 6.3-8.0 [facility] Comment on above: Order Comment: Speci men Type: BLOOD SPECIMENOrdering Facility: [facility] Address: [address] [place] [address] Performed By: #### 2 4323-8 ####[facility] LABCLIA [id number] [place] [address] Sodium [Moles/Vol] 138 mmol/L Normal 136-144 [facility] Comment on above: Order Comment: Speci men Type: BLOOD SPECIMENOrdering Facility: [facility] Address: [address] [id number] Performed By: #### 2 4323-8 ####[facility] LABCLIA [id number] [place] [address] Urea nitrogen [Mass/Vol] 16 mg/dL Normal 7-21 [facility] Comment on above: Order Comment: Speci men Type: BLOOD SPECIMENOrdering Facility: [facility] Address: [address] [place] [address] Performed By: #### 2 4323-8 ####[facility] LABCLIA [id number] [place] [address] Ferritin SerPl-mCncon 2024 Ferritin [Mass/Vol] 63.6 ng/mL Normal 14.7-205.1 [facility] Comment on above: Order Comment: Speci men Type: BLOOD SPECIMENOrdering Facility: [facility] Address: [address] [place] [address] Performed By: #### 2 284-8, 51574-1, 2275-4, 9 ####[facility] LABIA [id number] [place] [address] [place] Folate SerPl-mCncon 11-30-19 25 Folate [Mass/Vol] ng/mL Normal >4.7 [facility] Comment on above: Order Comment: Speci men Type: BLOOD SPECIMENOrdering Facility: [facility] [facility] Address: [address] [place] [address] Result Comment: A re sult of > 20 ng/mL is not necessarily indicative of a pathologic or treatable condition: it reflects a limitation of the test methodology.Assay reference range: 4.8 to 24.2 ng/mL. Suitable for detection of folate deficiency.Reference:Folate III (Folate III) [package insert V 1.0 Indonesian]. [facility], [place], [place]: March 2015. Performed By: #### 2 284-8, 86367-8, 6-4, 2131-9 ####[facility] LABCLIA [id number] [place] [address] [place] IMMUNOGLOBULINS,IGG,IGA,IGMo n 11-29-2024 IgA [Mass/Vol] 169 mg/dL Normal 70-400 [facility] Comment on above: Order Comment: Speci men Type: BLOOD SPECIMENOrdering Facility: [facility] Address: [address] [place] [address] Performed By: #### S ERIMM ####[facility] LABCLIA [id number] [place] [address] [place] IgG [Mass/Vol] 596 mg/dL Low 700-1600 [facility] Comment on above: Order Comment: Speci men Type: BLOOD SPECIMENOrdering Facility: [facility] Address: [address] [place] [address] Performed By: #### S ERIMM ####[facility] LABCLIA [id number] [place] [address] [place] IgM [Mass/Vol] 410 mg/dL High 40-230 [facility] Comment on above: Order Comment: Speci men Type: BLOOD SPECIMENOrdering Facility: [facility] Address: [address] [place] [address] Performed By: #### S ERIMM ####[facility] LABCLIA [id number] [place] [address] [place] Iron and Iron binding capaci ty panelon 11-29-2024 Iron [Mass/Vol] 154 ug/dL Normal 41-186 [facility] Comment on above: Order Comment: Speci men Type: BLOOD SPECIMENOrdering Facility: [facility] Address: [address] [place] [address] Performed By: #### 2 284-8, 60459-1, 2276-4, 2132-9 ####[facility] LABCLIA [id number] [place] [id number] [place] Iron binding capacity [Mass/Vol] 363 ug/dL Normal 232-386 [facility] Comment on above: Order Comment: Speci men Type: BLOOD SPECIMENOrdering Facility: [facility] Address: [address] [place] [address] Performed By: #### 2 284-8, 95823-1, 4, 2132-01 ####[facility] LABCLIA [id number] [place] [id number] [place] Iron/TIBC [Molar ratio] 42.4 % Normal 15.0-57.0 [facility] Comment on above: Order Comment: Speci men Type: BLOOD SPECIMENOrdering Facility: [facility] Address: [address] [place] [address] Performed By: #### 2 284-8, 24462-1, 4, 2132-01 ####[facility] LABIA [id number] [place] [id number] [place] Vit B12 [place] 025 Cobalamin (Vitamin B12) [Mass/Vol] 775 pg/mL Normal 232-1245 [facility] Comment on above: Order Comment: Speci men Type: BLOOD SPECIMENOrdering Facility: [facility] Address: [address] [place] [address] Performed By: #### 2 284-8, 46093-5, 2275-08, 2132-01 ####[facility] LABIA [id number] [place] [id number] [place] CNPNon 11-20-2024 CNPN Normal [facility] CNPNon 11-15-2024 CNPN Normal [facility] CNPNon 10-06-2024 CNPN Normal [facility] 25(OH)D3 SerPl-mCncon 2024 25-hydroxyvitamin D3 [Mass/Vol] 30.9 ng/mL Low 31.0-80.0 [facility] Comment on above: Order Comment: Speci men Type: BLOOD SPECIMENOrdering Facility: [facility] Address: [address] [place] [address] Result Comment: Clas sification of 25 [place] Vitamin D status:Deficiency/Insufficiency: < or = 30 ng/ml.Sufficiency/Optimal Levels: 31-80 ng/mLToxicity: > 100 ng/mL.Test performed by chemiluminescent immunoassay. Performed By: #### 1 989-3 ####[facility] LABCLIA [id number] [place] [id number] [place] [facility] 25-hydroxyvitamin D3 [Mass/V ol]on 10-02-2024 Interpretation and review of laboratory results Abnormal [facility] The reference range interval was based on an analysis of samples from healthy adults and may not pertain to children from 0-18 years old. [facility] C-REACTIVE PROTEINon 025 CRP [Mass/Vol] mg/dL NINF - 0.9 mg/dL [facility] CBC panel Auto (Bld)on 10-02 Erythrocyte distribution width (RBC) [Ratio] 16.2 % High 11.5 - 15.0 % [facility] Hematocrit (Bld) [Volume fraction] 41.3 % 36.0 - 46.0 % [facility] Hemoglobin (Bld) [Mass/Vol] 13.7 g/dL 11.5 - 15.5 g/dL [facility] Interpretation and review of laboratory results Abnormal [facility] MCH (RBC) [Entitic mass] 31.1 pg 26.0 - 34.0 pg [facility] MCHC (RBC) [Mass/Vol] 33.2 g/dL 30.5 - 36.0 g/dL [facility] MCV (RBC) [Entitic vol] 93.7 fL 80.0 - 100.0 fL [facility] Nucleated RBC (Bld) [#/Vol] NINF [facility] Platelet mean volume (Bld) [Entitic vol] 10.1 fL 9.0 - 12.7 fL [facility] Platelets (Bld) [#/Vol] 265 10*3/uL [facility] RBC (Bld) [#/Vol] 4.41 10*6/uL 3.90 - 5.2 0 m/uL [facility] WBC (Bld) [#/Vol] 10.07 10*3/uL [facility] Erythrocyte distribution width (RBC) [Ratio] 16.2 % High 11.5-15.0 [facility] Comment on above: Order Comment: Speci men Type: BLOOD SPECIMENOrdering Facility: [facility] Address: [address] [place], [place] [address] Performed By: #### 5 8410-2 ####[facility] LABCLIA [id number] [place] [address] Hematocrit (Bld) [Volume fraction] 41.3 % Normal 36.0-46.0 [facility] Comment on above: Order Comment: Speci men Type: BLOOD SPECIMENOrdering Facility: [facility] Address: [address] [place] [address] Performed By: #### 5 8410-2 ####[facility] LABCLIA [id number] [place] [address] Hemoglobin (Bld) [Mass/Vol] 13.7 g/dL Normal 11.5-15.5 [facility] Comment on above: Order Comment: Speci men Type: BLOOD SPECIMENOrdering Facility: [facility] Address: [address] [place] [address] Performed By: #### 5 8410-2 ####[facility] LABCLIA [id number] [place] [address] MCH (RBC) [Entitic mass] 31.1 pg Normal 26.0-34.0 [facility] Comment on above: Order Comment: Speci men Type: BLOOD SPECIMENOrdering Facility: [facility] Address: [address] [place] [address] Performed By: #### 5 8410-2 ####[facility] LABCLIA [id number] [place] [address] MCHC (RBC) [Mass/Vol] 33.2 g/dL Normal 30.5-36.0 [facility] Comment on above: Order Comment: Speci men Type: BLOOD SPECIMENOrdering Facility: [facility] Address: [address] [place] [address] Performed By: #### 5 8410-2 ####[facility] LABCLIA [id number] [place] [address] MCV (RBC) [Entitic vol] 93.7 fL Normal 80.0-100.0 [facility] Comment on above: Order Comment: Speci men Type: BLOOD SPECIMENOrdering Facility: [facility] Address: [address] [place] [address] Performed By: #### 5 8410-2 ####[facility] LABCLIA [id number] [place] [address] Nucleated RBC (Bld) [#/Vol] 10*3/uL Normal <0.01 [facility] Comment on above: Order Comment: Speci men Type: BLOOD SPECIMENOrdering Facility: [facility] Address: [address] [place] [address] Performed By: #### 5 8410-2 ####[facility] LABCLIA [id number] [place] [address] Platelet mean volume (Bld) [Entitic vol] 10.1 fL Normal 9.0-12.7 [facility] Comment on above: Order Comment: Speci men Type: BLOOD SPECIMENOrdering Facility: [facility] Address: [address] [place] [address] Performed By: #### 5 8410-2 ####[facility] LABCLIA [id number] [place] [address] Platelets (Bld) [#/Vol] 265 10*3/uL Normal 150-400 [facility] Comment on above: Order Comment: Speci men Type: BLOOD SPECIMENOrdering Facility: [facility] Address: [address] [place] [address] Performed By: #### 5 8410-2 ####[facility] LABCLIA [id number] [place] [address] RBC (Bld) [#/Vol] 4.41 10*6/uL Normal 3.90-5.20 [facility] Comment on above: Order Comment: Speci men Type: BLOOD SPECIMENOrdering Facility: [facility] Address: [address] [place] [address] Performed By: #### 5 8410-2 ####[facility] LABCLIA [id number] [place] [address] WBC (Bld) [#/Vol] 10.07 10*3/uL Normal 3.70-11.00 [facility] Comment on above: Order Comment: Speci men Type: BLOOD SPECIMENOrdering Facility: [facility] Address: [address] [place] [address] Performed By: #### 5 8410-2 ####[facility] LABCLIA [id number] [place] [address] CRP [facility]2024 CRP [Mass/Vol] mg/L Normal <0.9 [facility] Comment on above: Order Comment: Speci men Type: BLOOD SPECIMENOrdering Facility: [facility] Address: [address] [place] [address] Performed By: #### 1 988-5 ####[facility] LABCLIA [id number] [place] [address] [place] CRP [Mass/Vol]on 10-02-2024 Interpretation and review of laboratory results Normal [facility] Comprehensive metabolic 2000 panelOrdered By: Josse Merlos on 10-02-2024 Albumin [Mass/Vol] 3.9 g/dL 3.9 - 4.9 g/dL [facility] ALP [Catalytic activity/Vol] 61 U/L 34 - 123 U/L [facility] ALT [Catalytic activity/Vol] 41 U/L High 7 - 38 U/L [facility] Anion gap [Moles/Vol] 14 mmol/L 8 - 15 mmol/L [facility] AST [Catalytic activity/Vol] 18 U/L 13 - 35 U/L [facility] Bilirubin [Mass/Vol] 0.2 mg/dL 0.2 - 1 .3 mg/dL [facility] Calcium [Mass/Vol] 9.6 mg/dL 8.5 - 10. 2 mg/dL [facility] Chloride [Moles/Vol] 107 mmol/L 98 - 10 7 mmol/L [facility] CO2 [Moles/Vol] 20 mmol/L Low 22 - 30 mmol/L [facility] Creatinine [Mass/Vol] 0.59 mg/dL 0.58 - 0.96 mg/dL [facility] GFR/1.73 sq M.predicted among non-blacks MDRD (S/P/Bld) [Vol rate/Area] 115 mL/min/{1.73_m2} - PINF [facility] Comment on above: Estimated Glomerular [...] 216 mg/dL High 74 - 99 mg/dL [facility] Comment on above: The [place] Diabete s Association (ADA) provides guidance for [...] [place] Diabetes Association. Diabetes Care. 2016.39(Suppl 1). Interpretation and review of laboratory results Abnormal [facility] Potassium [Moles/Vol] 4.1 mmol/L 3.7 - 5.1 mmol/L [facility] Protein [Mass/Vol] 6.8 g/dL 6.3 - 8.0 g/dL [facility] Sodium [Moles/Vol] 141 mmol/L 136 - 144 mmol/L [facility] Urea nitrogen [Mass/Vol] 19 mg/dL 7 - 21 mg/dL [facility] Comprehensive metabolic 2000 panelon 10-02-2024 Albumin [Mass/Vol] 3.9 g/dL Normal 3.9-4.9 [facility] Comment on above: Order Comment: Speci men Type: BLOOD SPECIMENOrdering Facility: [facility] Address: [address] [place] [address] Performed By: #### 2 4323-8 ####[facility] LABCLIA [id number] [place] [address] ALP [Catalytic activity/Vol] 61 U/L Normal 34-123 [facility] Comment on above: Order Comment: Speci men Type: BLOOD SPECIMENOrdering Facility: [facility] Address: [address] [place] [address] Performed By: #### 2 4323-8 ####[facility] LABCLIA [id number] [place] [address] ALT [Catalytic activity/Vol] 41 U/L High 7-38 [facility] Comment on above: Order Comment: Speci men Type: BLOOD SPECIMENOrdering Facility: [facility] Address: [address] [place] [address] Performed By: #### 2 4323-8 ####[facility] LABCLIA [id number] [place] [address] Anion gap [Moles/Vol] 14 mmol/L Normal 8-15 [facility] Comment on above: Order Comment: Speci men Type: BLOOD SPECIMENOrdering Facility: [facility] Address: [address] [place] [address] Performed By: #### 2 4323-8 ####[facility] LABCLIA [id number] [place] [address] AST [Catalytic activity/Vol] 18 U/L Normal 13-35 [facility] Comment on above: Order Comment: Speci men Type: BLOOD SPECIMENOrdering Facility: [facility] Address: [address] [place] [address] Performed By: #### 2 4323-8 ####[facility] LABCLIA [id number] [place] [address] Bilirubin [Mass/Vol] 0.2 mg/dL Normal 0.2-1.3 [facility] Comment on above: Order Comment: Speci men Type: BLOOD SPECIMENOrdering Facility: [facility] Address: [address] [place] [address] Performed By: #### 2 4323-8 ####[facility] LABCLIA [id number] [place] [address] Calcium [Mass/Vol] 9.6 mg/dL Normal 8.5-10.2 [facility] Comment on above: Order Comment: Speci men Type: BLOOD SPECIMENOrdering Facility: [facility] Address: [address] [place] [address] Performed By: #### 2 4323-8 ####[facility] LABCLIA [id number] [place] [address] Chloride [Moles/Vol] 107 mmol/L Normal 98-107 [facility] Comment on above: Order Comment: Speci men Type: BLOOD SPECIMENOrdering Facility: [facility] Address: [address] [place] [address] Performed By: #### 2 4323-8 ####[facility] LABCLIA [id number] [place] [address] CO2 [Moles/Vol] 20 mmol/L Low 22-30 [facility] Comment on above: Order Comment: Speci men Type: BLOOD SPECIMENOrdering Facility: [facility] Address: [address] [place] [address] Performed By: #### 2 4323-8 ####[facility] LABCLIA [id number] [place] [address] Creatinine [Mass/Vol] 0.59 mg/dL Normal 0.58-0.96 [facility] Comment on above: Order Comment: Semaj cortés Type: BLOOD SPECIMENOrdering Facility: [facility] Address: [address] [place] [id number] Performed By: #### 2 4323-8 ####[facility] LABCLIA [id number] [place] [address] Creatinine and Glomerular filtration rate.predicted panel (S/P/Bld) 115 mL/min/1.73m??? Normal >=60 [facility] Comment on above: Order Comment: Specgodwin men Type: BLOOD SPECIMENOrdering Facility: [facility] Address: [address] [place] [address] Result Comment: Erin mated Glomerular Filtration Rate [...] actual GFR. Performed By: #### 2 4323-8 ####[facility] LABCLIA [id number] [place] [address] Glucose [Mass/Vol] 216 mg/dL High 74-99 [facility] Comment on above: Order Comment: Semaj moo Type: BLOOD SPECIMENOrdering Facility: [facility] Address: [address] [place] [address] Result Comment: The [place] Diabetes Association (ADA) [...] 2016.39(Suppl 1). Performed By: #### 2 4323-8 ####[facility] LABCLIA [id number] [place] [address] Potassium [Moles/Vol] 4.1 mmol/L Normal 3.7-5.1 [facility] Comment on above: Order Comment: Speci men Type: BLOOD SPECIMENOrdering Facility: [facility] Address: [address] [place] [address] Performed By: #### 2 4323-8 ####[facility] LABCLIA [id number] [place] [address] Protein [Mass/Vol] 6.8 g/dL Normal 6.3-8.0 [facility] Comment on above: Order Comment: Speci men Type: BLOOD SPECIMENOrdering Facility: [facility] Address: [address] [place] [address] Performed By: #### 2 4323-8 ####[facility] LABCLIA [id number] [place] [address] Sodium [Moles/Vol] 141 mmol/L Normal 136-144 [facility] Comment on above: Order Comment: Speci men Type: BLOOD SPECIMENOrdering Facility: [facility] Address: [address] [place] [address] Performed By: #### 2 4323-8 ####[facility] LABCLIA [id number] [place] [address] Urea nitrogen [Mass/Vol] 19 mg/dL Normal 7-21 [facility] Comment on above: Order Comment: Speci men Type: BLOOD SPECIMENOrdering Facility: [facility] Address: [address] [place] [address] Performed By: #### 2 4323-8 ####[facility] LABCLIA [id number] [place] [address] ESR Westergren method (Bld) [Velocity]on 10-02-2024 ESR (Bld) [Velocity] 28 mm/h High [facility] Interpretation and review of laboratory results Abnormal [facility] ESR (Bld) [Velocity] 28 mm/h High 0-20 [facility] Comment on above: Order Comment: Speci men Type: BLOOD SPECIMENOrdering Facility: [facility] Address: [address] [place] [address] Performed By: #### 4 537-7 ####[facility] LABCLIA [id number] [place] [address] [place] VITAMIN D 25 HYDROXYon 10-02 25-hydroxyvitamin D3 [Mass/Vol] 30.9 ng/mL Low 31.0 - 80.0 ng/mL [facility] Comment on above: Classification of 25 [place] Vitamin D status: Deficiency/Insufficiency: < or = 30 ng/ml. Sufficiency/Optimal Levels: 31-80 ng/mL Toxicity: > 100 ng/mL. Test performed by chemiluminescent immunoassay. DNA EXTRACTION BLOODOrdered By: Dominga Araujo on 09-20-2024 CONCENTRATION (NG/UL) 189.3 ng/ul [facility] Total Yield 94.65 ug [facility] Comment on above: Specimens will be av ailable for 3 years from date of collection. To order testing on this specimen for [facility] patients, please place an [facility] order for DNA and RNA for Clinical Testing (SQNUCADD). To order for patients outside of the [facility] system, please request DNA and RNA for Clinical Testing, order code [email or web address]. If additional paperwork is required for testing, please email completed forms to . VOLUME (UL) OF DNA 500 uL [facility] CNOVon 09-19-2024 CNOV Normal [facility] DNA EXTRACTION BLOODon 09-19 CONCENTRATION (NG/UL) 189.3 ng/ul Normal [facility] Comment on above: Order Comment: Speci men Type: BLOOD SPECIMENOrdering Facility: [facility] Address: [address] [place] [address] Performed By: #### N UCBLD ####[facility] LIMSCLIA [id number] [place] [address] [place] TOTAL YIELD 94.65 ug Normal [facility] Comment on above: Order Comment: Speci men Type: BLOOD SPECIMENOrdering Facility: [facility] Address: [address] [place] [address] Result Comment: Spec imens will be available for 3 years from date of collection. To order testing on this specimen for [facility] patients, please place an [employer] order for DNA and RNA for Clinical Testing (SQNUCADD). To order for patients outside of the [facility] system, please request DNA and RNA for Clinical Testing, order code [email or web address].If additional paperwork is required for testing, please email completed forms to . Performed By: #### N UCBLD ####[facility] LIMSCLIA [id number] [place] [address] [place] VOLUME (UL) OF DNA 500 uL Normal [facility] Comment on above: Order Comment: Speci men Type: BLOOD SPECIMENOrdering Facility: [facility] Address: [address] [place] [address] Performed By: #### N UCBLD ####[facility] LIMSCLIA [id number] [place] [address] [place] CNPNon 09-18-2024 CNPN Normal [facility] CNPNon 09-13-2024 CNPN Normal [facility] CNOVSPon 09-06-2024 CNOVSP Normal [facility] CNPNon 09-06-2024 CNPN Normal [facility] IMMUNOGLOBULINS,IGG,IGA,IGMo n 09-06-2024 IgA [Mass/Vol] 163 mg/dL Normal 70-400 [facility] Comment on above: Order Comment: Speci men Type: BLOOD SPECIMENOrdering Facility: [facility] Address: [address] [place] [address] Performed By: #### S ERIMM ####[facility] LABCLIA [id number] [place] [address] [place] IgG [Mass/Vol] 599 mg/dL Low 700-1600 [facility] Comment on above: Order Comment: Speci men Type: BLOOD SPECIMENOrdering Facility: [facility] Address: [address] [place] [address] Performed By: #### S DANIEL ####[facility] LABCLIA [id number] [address] [address] [place] IgM [Mass/Vol] 387 mg/dL High 40-230 [facility] Comment on above: Order Comment: Speci men Type: BLOOD SPECIMENOrdering Facility: [facility] Address: [address] [place] [address] Performed By: #### S DANIEL ####[facility] LABCLIA [id number] [place] [address] [place] Laboratory - Chemistry and C hemistry - challengeon 09-06-2024 IgA [Mass/Vol] 163 mg/dL 70 - 400 mg/dL [facility] IgG [Mass/Vol] 599 mg/dL Low 700 - 1600 mg/dL [facility] IgM [Mass/Vol] 387 mg/dL High 40 - 230 mg/dL [facility] No Panel Informationon 09-06 Interpretation and review of laboratory results Abnormal [facility] CBC W Auto Differential pane l (Bld)on 08-29-2024 Basophils (Bld) [#/Vol] 0.06 10*3/uL Normal <0.11 [facility] Comment on above: Order Comment: Speci men Type: BLOOD SPECIMENOrdering Facility: [facility] Address: [address] [place] [address] Performed By: #### 5 7021-8 ####[facility] LABCLIA [id number] [place] [address] Basophils/100 WBC (Bld) 0.5 % Normal [facility] Comment on above: Order Comment: Speci men Type: BLOOD SPECIMENOrdering Facility: [facility] Address: [address] [place] [address] Performed By: #### 5 7021-8 ####[facility] LABCLIA [id number] [place] [address] Differential cell count method Nom (Bld) Auto Normal [facility] Comment on above: Order Comment: Speci men Type: BLOOD SPECIMENOrdering Facility: [facility] Address: [address] [place] [address] [place], [place] [address] Performed By: #### 5 7021-8 ####[facility] LABCLIA [id number] [place] [address] Eosinophils (Bld) [#/Vol] 0.08 10*3/uL Normal <0.46 [facility] Comment on above: Order Comment: Speci men Type: BLOOD SPECIMENOrdering Facility: [facility] Address: [address] [place] [address] Performed By: #### 5 7021-8 ####[facility] LABCLIA [id number] [place] [address] Eosinophils/100 WBC (Bld) 0.6 % Normal [facility] Comment on above: Order Comment: Speci men Type: BLOOD SPECIMENOrdering Facility: [facility] Address: [address] [place] [address] Performed By: #### 5 7021-8 ####[facility] LABCLIA [id number] [place] [address] Erythrocyte distribution width (RBC) [Ratio] 16.0 % High 11.5-15.0 [facility] Comment on above: Order Comment: Speci men Type: BLOOD SPECIMENOrdering Facility: [facility] Address: [address] [place] [address] Performed By: #### 5 7021-8 ####[facility] LABIA [id number] [place] [address] Hematocrit (Bld) [Volume fraction] 42.9 % Normal 36.0-46.0 [facility] Comment on above: Order Comment: Speci men Type: BLOOD SPECIMENOrdering Facility: [facility] Address: [address] [place] [address] Performed By: #### 5 7021-8 ####[facility] LABCLIA [id number] [place] [address] Hemoglobin (Bld) [Mass/Vol] 13.8 g/dL Normal 11.5-15.5 [facility] Comment on above: Order Comment: Speci men Type: BLOOD SPECIMENOrdering Facility: [facility] Address: [address] [place] [address] Performed By: #### 5 7021-8 ####[facility] LABCLIA [id number] [place] [address] Immature granulocytes (Bld) [#/Vol] 0.23 10*3/uL High <0.10 [facility] Comment on above: Order Comment: Speci men Type: BLOOD SPECIMENOrdering Facility: [facility] Address: [address] [place] [address] Performed By: #### 5 7021-8 ####[facility] LABCLIA [id number] [place] [address] Immature granulocytes/100 WBC (Bld) 1.8 % Normal [facility] Comment on above: Order Comment: Speci men Type: BLOOD SPECIMENOrdering Facility: [facility] Address: [address] [place] [address] Performed By: #### 5 7021-8 ####[facility] LABCLIA [id number] [place] [address] Lymphocytes (Bld) [#/Vol] 2.07 10*3/uL Normal 1.00-4.00 [facility] Comment on above: Order Comment: Speci men Type: BLOOD SPECIMENOrdering Facility: [facility] Address: [address] [place] [address] Performed By: #### 5 7021-8 ####[facility] LABCLIA [id number] [place] [address] Lymphocytes/100 WBC (Bld) 15.8 % Normal [facility] Comment on above: Order Comment: Speci men Type: BLOOD SPECIMENOrdering Facility: [facility] Address: [address] [place], [place] [address] Performed By: #### 5 7021-8 ####[facility] LABCLIA [id number] [place] [address] MCH (RBC) [Entitic mass] 30.2 pg Normal 26.0-34.0 [facility] Comment on above: Order Comment: Speci men Type: BLOOD SPECIMENOrdering Facility: [facility] Address: [address] [place] [address] Performed By: #### 5 7021-8 ####[facility] LABIA [id number] [place] [address] MCHC (RBC) [Mass/Vol] 32.2 g/dL Normal 30.5-36.0 [facility] Comment on above: Order Comment: Speci men Type: BLOOD SPECIMENOrdering Facility: [facility] Address: [address] [place] [address] Performed By: #### 5 7021-8 ####[facility] LABCLIA [id number] [place] [address] MCV (RBC) [Entitic vol] 93.9 fL Normal 80.0-100.0 [facility] Comment on above: Order Comment: Speci men Type: BLOOD SPECIMENOrdering Facility: [facility] Address: [address] [place] [address] Performed By: #### 5 7021-8 ####[facility] LABIA [id number] [place] [address] Monocytes (Bld) [#/Vol] 0.86 10*3/uL Normal <0.87 [facility] Comment on above: Order Comment: Speci men Type: BLOOD SPECIMENOrdering Facility: [facility] Address: [address] [place] [address] Performed By: #### 5 7021-8 ####[facility] LABCLIA [id number] [place] [address] Monocytes/100 WBC (Bld) 6.6 % Normal [facility] Comment on above: Order Comment: Speci men Type: BLOOD SPECIMENOrdering Facility: [facility] Address: [address] [place] [address] Performed By: #### 5 7021-8 ####[facility] LABCLIA [id number] [place] [address] Neutrophils (Bld) [#/Vol] 9.82 10*3/uL High 1.45-7.50 [facility] Comment on above: Order Comment: Speci men Type: BLOOD SPECIMENOrdering Facility: [facility] Address: [address] [place] [address] Performed By: #### 5 7021-8 ####[facility] LABCLIA [id number] [place] [address] Neutrophils/100 WBC (Bld) 74.7 % Normal [facility] Comment on above: Order Comment: Speci men Type: BLOOD SPECIMENOrdering Facility: [facility] Address: [address] [place] [address] Performed By: #### 5 7021-8 ####[facility] LABCLIA [id number] [place] [address] Nucleated RBC (Bld) [#/Vol] 10*3/uL Normal <0.01 [facility] Comment on above: Order Comment: Speci men Type: BLOOD SPECIMENOrdering Facility: [facility] Address: [address] [place] [address] Performed By: #### 5 7021-8 ####[facility] LABCLIA [id number] [place] [address] Nucleated RBC/100 WBC (Bld) [Ratio] 0.0 /100 WBC Normal [facility] Comment on above: Order Comment: Speci men Type: BLOOD SPECIMENOrdering Facility: [facility] Address: [address] [place] [address] Performed By: #### 5 7021-8 ####[facility] LABCLIA [id number] [place] [address] Platelet mean volume (Bld) [Entitic vol] 9.5 fL Normal 9.0-12.7 [facility] Comment on above: Order Comment: Speci men Type: BLOOD SPECIMENOrdering Facility: [facility] Address: [address] [place] [address] Performed By: #### 5 7021-8 ####[facility] LABCLIA [id number] [place] [address] Platelets (Bld) [#/Vol] 291 10*3/uL Normal 150-400 [facility] Comment on above: Order Comment: Speci men Type: BLOOD SPECIMENOrdering Facility: [facility] Address: [address] [place] [address] Performed By: #### 5 7021-8 ####[facility] LABCLIA [id number] [place] [address] RBC (Bld) [#/Vol] 4.57 10*6/uL Normal 3.90-5.20 [facility] Comment on above: Order Comment: Speci men Type: BLOOD SPECIMENOrdering Facility: [facility] Address: [address] [place] [address] Performed By: #### 5 7021-8 ####[facility] LABCLIA [id number] [place] [address] WBC (Bld) [#/Vol] 13.12 10*3/uL High 3.70-11.00 [facility] Comment on above: Order Comment: Speci men Type: BLOOD SPECIMENOrdering Facility: [facility] Address: [address] [place] [address] Performed By: #### 5 7021-8 ####[facility] LABCLIA [id number] [place] [address] Comprehensive metabolic 2000 panelon 08-29-2024 Albumin [Mass/Vol] 4.2 g/dL Normal 3.9-4.9 [facility] Comment on above: Order Comment: Speci men Type: BLOOD SPECIMENOrdering Facility: [facility] Address: [address] [place] [address] Performed By: #### 2 4323-8 ####[facility] LABCLIA [id number] [place] [address] ALP [Catalytic activity/Vol] 69 U/L Normal 34-123 [facility] Comment on above: Order Comment: Speci men Type: BLOOD SPECIMENOrdering Facility: [facility] Address: [address] [place] [address] Performed By: #### 2 4323-8 ####[facility] LABCLIA [id number] [place] [address] ALT [Catalytic activity/Vol] 38 U/L Normal 7-38 [facility] Comment on above: Order Comment: Speci men Type: BLOOD SPECIMENOrdering Facility: [facility] Address: [address] [place] [address] Performed By: #### 2 4323-8 ####[facility] LABCLIA [id number] [place] [address] Anion gap [Moles/Vol] 12 mmol/L Normal 8-15 [facility] Comment on above: Order Comment: Speci men Type: BLOOD SPECIMENOrdering Facility: [facility] Address: [address] [place] [address] Performed By: #### 2 4323-8 ####[facility] LABCLIA [id number] [place] [address] AST [Catalytic activity/Vol] 15 U/L Normal 13-35 [facility] Comment on above: Order Comment: Speci men Type: BLOOD SPECIMENOrdering Facility: [facility] Address: [address] [place] [address] Performed By: #### 2 4323-8 ####[facility] LABCLIA [id number] [place] [address] Bilirubin [Mass/Vol] 0.2 mg/dL Normal 0.2-1.3 [facility] Comment on above: Order Comment: Speci men Type: BLOOD SPECIMENOrdering Facility: [facility] Address: [address] [place] [address] Performed By: #### 2 4323-8 ####[facility] LABCLIA [id number] [place] [address] Calcium [Mass/Vol] 10.3 mg/dL High 8.5-10.2 [facility] Comment on above: Order Comment: Speci men Type: BLOOD SPECIMENOrdering Facility: [facility] Address: [address] [place] [address] Performed By: #### 2 4323-8 ####[facility] LABCLIA [id number] [place] [address] Chloride [Moles/Vol] 101 mmol/L Normal 98-107 [facility] Comment on above: Order Comment: Speci men Type: BLOOD SPECIMENOrdering Facility: [facility] Address: [address] [place] [address] Performed By: #### 2 4323-8 ####[facility] LABCLIA [id number] [place] [address] CO2 [Moles/Vol] 26 mmol/L Normal 22-30 [facility] Comment on above: Order Comment: Speci men Type: BLOOD SPECIMENOrdering Facility: [facility] Address: [address] [place] [address] Performed By: #### 2 4323-8 ####[facility] LABCLIA [id number] [place] [address] Creatinine [Mass/Vol] 0.64 mg/dL Normal 0.58-0.96 [facility] Comment on above: Order Comment: Semaj moo Type: BLOOD SPECIMENOrdering Facility: [facility] Address: [address] [place] [address] Performed By: #### 2 4323-8 ####[facility] LABCLIA [id number] [place] [address] Creatinine and Glomerular filtration rate.predicted panel (S/P/Bld) 113 mL/min/1.73m??? Normal >=60 [facility] Comment on above: Order Comment: Semaj moo Type: BLOOD SPECIMENOrdering Facility: [facility] Address: [address] [id number] Result Comment: Erin mated Glomerular Filtration Rate [...] actual GFR. Performed By: #### 2 4323-8 ####[facility] LABCLIA [id number] [place] [address] Glucose [Mass/Vol] 139 mg/dL High 74-99 [facility] Comment on above: Order Comment: Semaj moo Type: BLOOD SPECIMENOrdering Facility: [facility] Address: [address] [id number] Result Comment: The [place] [employer] (ADA) [...] 2016.39(Suppl 1). Performed By: #### 2 4323-8 ####[facility] LABCLIA [id number] [place] [address] Potassium [Moles/Vol] 4.4 mmol/L Normal 3.7-5.1 [facility] Comment on above: Order Comment: Speci men Type: BLOOD SPECIMENOrdering Facility: [facility] Address: [address] [place] [address] Performed By: #### 2 4323-8 ####[facility] LABCLIA [id number] [place] [address] Protein [Mass/Vol] 7.1 g/dL Normal 6.3-8.0 [facility] Comment on above: Order Comment: Speci men Type: BLOOD SPECIMENOrdering Facility: [facility] Address: [address] [place] [address] Performed By: #### 2 4323-8 ####[facility] LABCLIA [id number] [place] [address] Sodium [Moles/Vol] 139 mmol/L Normal 136-144 [facility] Comment on above: Order Comment: Speci men Type: BLOOD SPECIMENOrdering Facility: [facility] Address: [address] [place] [address] Performed By: #### 2 4323-8 ####[facility] LABCLIA [id number] [place] [address] Urea nitrogen [Mass/Vol] 18 mg/dL Normal 7-21 [facility] Comment on above: Order Comment: Speci men Type: BLOOD SPECIMENOrdering Facility: [facility] Address: [address] [place] [address] Performed By: #### 2 4323-8 ####[facility] LABCLIA [id number] [place] [address] Ferritin SerPl-mCncon 2024 Ferritin [Mass/Vol] 43.1 ng/mL Normal 14.7-205.1 [facility] Comment on above: Order Comment: Speci men Type: BLOOD SPECIMENOrdering Facility: [facility] Address: [address] [place] [address] Performed By: #### 2 132-9, 2284-8, 2276-4, 31827-3 ####[facility] LABCLIA [id number] [place] [id number] [place] Folate SerPl-mCncon 08-30-19 25 Folate [Mass/Vol] ng/mL Normal >4.7 [facility] Comment on above: Order Comment: eSmaj moo Type: BLOOD SPECIMENOrdering Facility: [facility] Address: [address] [place] [address] Result Comment: A re sult of > 20 ng/mL is not necessarily indicative of a pathologic or treatable condition: it reflects a limitation of the test methodology.Assay reference range: 4.8 to 24.2 ng/mL. Suitable for detection of folate deficiency.Reference:Folate III (Folate III) [package insert V 1.0 Indonesian]. [facility], [place], [place]: March 2015. Performed By: #### 2 132-9, 2284-8, 2276-4, 54240-4 ####[facility] LABCLIA [id number] [place] [id number] [place] IgG SerPl-mCncon 08-29-2024 IgG [Mass/Vol] 729 mg/dL Normal 700-1600 [facility] Comment on above: Order Comment: Speci men Type: BLOOD SPECIMENOrdering Facility: [facility] Address: [address] [place] [address] Performed By: #### 2 465-3 ####[facility] LABCLIA [id number] [place] [id number] [place] Iron and Iron binding capaci ty panelon 08-29-2024 Iron [Mass/Vol] 80 ug/dL Normal 41-186 [facility] Comment on above: Order Comment: Speci men Type: BLOOD SPECIMENOrdering Facility: [facility] Address: [address] [place] [address] Performed By: #### 2 132-9, 2284-8, 2275-4, 75203-3 ####[facility] LABCLIA [id number] [address] [address] [place] Iron binding capacity [Mass/Vol] 416 ug/dL High 232-386 [facility] Comment on above: Order Comment: Speci men Type: BLOOD SPECIMENOrdering Facility: [facility] Address: [address] [place], [place] [address] Performed By: #### 2 132-9, 2284-8, 2275-4, 11720-7 ####[facility] LABCLIA [id number] [address] [address] [place] Iron/TIBC [Molar ratio] 19.2 % Normal 15.0-57.0 [facility] Comment on above: Order Comment: Speci men Type: BLOOD SPECIMENOrdering Facility: [facility] Address: [address] [place], [place] [address] Performed By: #### 2 132-9, 2284-8, 2275-4, 41961-0 ####[facility] LABCLIA [id number] [address] [address] [place] Vit B12 [facility] 025 Cobalamin (Vitamin B12) [Mass/Vol] 555 pg/mL Normal 232-1245 [facility] Comment on above: Order Comment: Speci men Type: BLOOD SPECIMENOrdering Facility: [facility] Address: [address] [place], [place] [address] Performed By: #### 2 132-9, 2284-8, 2275-4, 45758-7 ####[facility] LABCLIA [id number] [address] [address] [place] CNPNon 08-28-2024 CNPN Normal [facility] [place] Thyroid glandon [address] [address] Ultrasound Report Signed Patient: ARIADNA HALEY MR#: [id number] : 1980 Acct:[id number] Age/Sex: 43 / F ADM Date: 08/24/24 Loc: US Attending Dr: Gordo Barfield M.D. Ordering Physician: Gordo Barfield M.D. Date of Service: 08/24/24 Procedure(s): US thyroid Accession Number(s): [id number] cc: GAY ENCISO ; Gordo Barfield M.D. [place] [id number] Patient Name: ARIADNA HALEY MRN: [id number] date: 1980 Sex: F Assigned Patient Location: [place] Current Patient Location: [place] Accession/Order Number: [id number] Exam Date: 08/24/2024 09:09 Report Date: 08/24/2024 [...] was thought to be cystic. The chief credit officer today considered it solid and it was given TI-RADS 4 classification. No internal color flow is shown. Size has not significantly changed when measuring in a comparable manner. No other nodularity is seen. US/US thyroid IMPRESSION: SIMILAR SMALL LEFT THYROID NODULE. FOLLOW-UP IN ONE YEAR IS SUGGESTED. Impression dictated by: Simin Nelson M.D.08/24/2024 9:22 AM Dictation Location: [place] [address] Electronically authenticated by: [id number] Y Date: 08/24/2024 09:22 Dictated By: Simin Nelson M.D. Signed By: 08/24/24923 DD/ 1 TD/TT: Insole Stiffener: [facility] Radiology, Radiologist, MD - 08/24/2024 [place] [address] Ultrasound Report Signed Patient: ARIADNA HALEY MR#: [id number] : 1980 Acct:[id number] Age/Sex: 43 / F ADM Date: 08/24/24 Loc: US Attending Dr: Gordo Barfield M.D. Ordering Physician: Gordo Barfield M.D. Date of Service: 08/24/24 Procedure(s): US thyroid Accession Number(s): [id number] cc: GAY ENCISO ; Gordo Barfield M.D. [address] [place] [address] Patient Name: ARIADNA HALEY MRN: [facility]:[id number] date: 1980 Sex: F Assigned Patient Location: [place] Current Patient Location: [place] Accession/Order Number: [id number] Exam Date: 08/24/2024 09:09 Report Date: 08/24/2024 [...] was thought to be cystic. The chief credit officer today considered it solid and it was given TI-RADS 4 classification. No internal color flow is shown. Size has not significantly changed when measuring in a comparable manner. No other nodularity is seen. US/US thyroid IMPRESSION: SIMILAR SMALL LEFT THYROID NODULE. FOLLOW-UP IN ONE YEAR IS SUGGESTED. Impression dictated by: Simin Nelson M.D.08/24/2024 9:22 AM Dictation Location: [place] [address] Electronically authenticated by: [id number] Y Date: 08/24/2024 09:22 Dictated By: Simin Nelson M.D. Signed By: 08/24/24923 DD/ 1 TD/TT: Insole Stiffener: [facility] Radiology Study observation (narrative) [facility] US Thyroid glandOrdered By: Radiologist Radiology on 08-24-2024 [facility] Work Phone: CNPNon 08-08-2024 CNPN Normal [facility] HCG ( test) IA.lester d Ql (U)Ordered By: Adolfo Kang on 07-19-2024 HCG ( test) Ql (U) Urine human chorionic gonadotropin (hCG) detection by immunoassay [facility] HCG,Urineon 07-19-2024 Beta HCG ( test) Ql (U) Negative Normal [facility] Comment on above: Result Comment: PERF ORMED BY: [place] [address] PATHOLOGIST [employer] HAYDEN LLAMAS M.D. Performed By: #### U HCG #### [address] CNOVon 07-12-2024 CNOV Normal [facility] CNPNon 07-09-2024 CNPN Normal [facility] 25(OH)D3 SerPl-mCncon 2024 25-hydroxyvitamin D3 [Mass/Vol] 28.5 ng/mL Low 31.0-80.0 [facility] Comment on above: Order Comment: Speci men Type: BLOOD SPECIMENOrdering Facility: [facility] Address: [address] [place] [address] Result Comment: Clas sification of 25 [place] Vitamin D status:Deficiency/Insufficiency: < or = 30 ng/ml.Sufficiency/Optimal Levels: 31-80 ng/mLToxicity: > 100 ng/mL.Test performed by chemiluminescent immunoassay. Performed By: #### 1 989-3 ####[facility] LABCLIA [id number] [address] [place] CBC panel Auto (Bld)on 06-30 Erythrocyte distribution width (RBC) [Ratio] 14.3 % Normal 11.5-15.0 [facility] Comment on above: Order Comment: Speci men Type: BLOOD SPECIMENOrdering Facility: [facility] Address: [address] [place] [address] Performed By: #### 5 8410-2 ####[facility] [place] [id number] [address] STATES OF [facility] Hematocrit (Bld) [Volume fraction] 41.3 % Normal 36.0-46.0 [facility] Comment on above: Order Comment: Speci men Type: BLOOD SPECIMENOrdering Facility: [facility] Address: [address] [place] [address] Performed By: #### 5 8410-2 ####[facility] [place] [id number] [address] [place] Hemoglobin (Bld) [Mass/Vol] 13.5 g/dL Normal 11.5-15.5 [facility] Comment on above: Order Comment: Speci men Type: BLOOD SPECIMENOrdering Facility: [facility] Address: [address] [place] [address] Performed By: #### 5 8410-2 ####[facility] LABIA [id number] [place] [id number] [place] MCH (RBC) [Entitic mass] 30.4 pg Normal 26.0-34.0 [facility] Comment on above: Order Comment: Speci men Type: BLOOD SPECIMENOrdering Facility: [facility] Address: [address] [place] [address] Performed By: #### 5 8410-2 ####[facility] [id number] [place] [address] [place] MCHC (RBC) [Mass/Vol] 32.7 g/dL Normal 30.5-36.0 [facility] Comment on above: Order Comment: Speci men Type: BLOOD SPECIMENOrdering Facility: [facility] Address: [address] [place] [address] Performed By: #### 5 8410-2 ####[facility] LABIA [id number] [place] [address] [place] MCV (RBC) [Entitic vol] 93.0 fL Normal 80.0-100.0 [facility] Comment on above: Order Comment: Speci men Type: BLOOD SPECIMENOrdering Facility: [facility] Address: [address] [place] [address] Performed By: #### 5 8410-2 ####[facility]ENTERAn[facility] [id number] [place] [id number] [place] Nucleated RBC (Bld) [#/Vol] 10*3/uL Normal <0.01 [facility] Comment on above: Order Comment: Speci men Type: BLOOD SPECIMENOrdering Facility: [facility] Address: [address] [place] [address] Performed By: #### 5 8410-2 ####[facility] [id number] [place] [id number] [place] Platelet mean volume (Bld) [Entitic vol] 9.8 fL Normal 9.0-12.7 [facility] Comment on above: Order Comment: Speci men Type: BLOOD SPECIMENOrdering Facility: [facility] Address: [address] [place] [address] Performed By: #### 5 8410-2 ####[facility] [id number] [place] [address] [place] Platelets (Bld) [#/Vol] 341 10*3/uL Normal 150-400 [facility] Comment on above: Order Comment: Speci men Type: BLOOD SPECIMENOrdering Facility: [facility] Address: [address] [place] [address] Performed By: #### 5 8410-2 ####[facility] [id number] [place] [id number] [place] RBC (Bld) [#/Vol] 4.44 10*6/uL Normal 3.90-5.20 [facility] Comment on above: Order Comment: Speci men Type: BLOOD SPECIMENOrdering Facility: [facility] Address: [address] [place] [address] Performed By: #### 5 8410-2 ####[facility] [id number] [place] [id number] [place] [facility] WBC (Bld) [#/Vol] 12.66 10*3/uL High 3.70-11.00 [facility] Comment on above: Order Comment: Speci men Type: BLOOD SPECIMENOrdering Facility: [facility] Address: [address] [place] [address] Performed By: #### 5 8410-2 ####[facility] [id number] [place] [id number] [place] CRP SerPl-mCncon 06-30-2024 CRP [Mass/Vol] 0.1 mg/dL Normal <0.9 [facility] Comment on above: Order Comment: Speci men Type: BLOOD SPECIMENOrdering Facility: [facility] Address: [address] [place] [address] Performed By: #### 1 988-5, 11172-7 ####[facility] [id number] [place] [id number] [facility] Comprehensive metabolic 2000 panelon 06-30-2024 Albumin [Mass/Vol] 4.0 g/dL Normal 3.9-4.9 [facility] Comment on above: Order Comment: Speci men Type: BLOOD SPECIMENOrdering Facility: [facility] Address: [address] [place] [address] Performed By: #### 1 988-5, 73347-4 ####[facility] [id number] [place] [address] [place] ALP [Catalytic activity/Vol] 52 U/L Normal 34-123 [facility] Comment on above: Order Comment: Speci men Type: BLOOD SPECIMENOrdering Facility: [facility] Address: [address] [place] [address] Performed By: #### 1 988-5, ####[facility] [id number] [place] [address] [place] ALT [Catalytic activity/Vol] 26 U/L Normal 7-38 [facility] Comment on above: Order Comment: Speci men Type: BLOOD SPECIMENOrdering Facility: [facility] Address: [address] [place] [address] Performed By: #### 1 988-5, 37791-2 ####[facility] [id number] [place] [address] [place] Anion gap [Moles/Vol] 10 mmol/L Normal 8-15 [facility] Comment on above: Order Comment: Speci men Type: BLOOD SPECIMENOrdering Facility: [facility] Address: [address] [place], [place] [id number] Performed By: #### 1 988-5, ####[facility] [id number] [place] [address] [place] AST [Catalytic activity/Vol] 12 U/L Low 13-35 [facility] Comment on above: Order Comment: Speci men Type: BLOOD SPECIMENOrdering Facility: [facility] Address: [facility] [place] [id number] Performed By: #### 1 988-5, 01566-7 ####[facility] [id number] [place] [address] [place] Bilirubin [Mass/Vol] 0.3 mg/dL Normal 0.2-1.3 [facility] Comment on above: Order Comment: Speci men Type: BLOOD SPECIMENOrdering Facility: [facility] Address: [address] [place] [address] Performed By: #### 1 988-5, ####[facility] [id number] [place] [address] [place] Calcium [Mass/Vol] 9.5 mg/dL Normal 8.5-10.2 [facility] Comment on above: Order Comment: Speci men Type: BLOOD SPECIMENOrdering Facility: [facility] Address: [address] [place] [id number] Performed By: #### 1 988-5, ####[facility] [id number] [place] [address] [place] Chloride [Moles/Vol] 103 mmol/L Normal 98-107 [facility] Comment on above: Order Comment: Speci men Type: BLOOD SPECIMENOrdering Facility: [facility] Address: [address] [place] [id number] Performed By: #### 1 988-5, ####[facility] [id number] [place] [address] [place] CO2 [Moles/Vol] 27 mmol/L Normal 22-30 [facility] Comment on above: Order Comment: Speci men Type: BLOOD SPECIMENOrdering Facility: [facility] Address: [address] [place] [address] Performed By: #### 1 988-5, ####[facility] [id number] [place] [address] [place] Creatinine [Mass/Vol] 0.78 mg/dL Normal 0.58-0.96 [facility] Comment on above: Order Comment: Speci men Type: BLOOD SPECIMENOrdering Facility: [facility] Address: [address] [place] [address] Performed By: #### 1 988-5, 34325-3 ####[facility] [id number] [place] [address] [place] Creatinine and Glomerular filtration rate.predicted panel (S/P/Bld) 97 mL/min/1.73m??? Normal >=60 [facility] Comment on above: Order Comment: Semaj cortés Type: BLOOD SPECIMENOrdering Facility: [facility] Address: [address] [place] [address] Result Comment: Erin mated Glomerular Filtration Rate [...] actual GFR. Performed By: #### 1 988-5, 43501-5 ####[facility] [id number] [place] [address] [place] Glucose [Mass/Vol] 116 mg/dL High 74-99 [facility] Comment on above: Order Comment: Semaj cortés Type: BLOOD SPECIMENOrdering Facility: [facility] Address: [address] [place] [address] Result Comment: The [place] Diabetes [employer] (ADA) [...] 2016.39(Suppl 1). Performed By: #### 1 988-5, 30819-8 ####[facility] [id number] [place] [address] [place] Potassium [Moles/Vol] 3.8 mmol/L Normal 3.7-5.1 [facility] Comment on above: Order Comment: Speci men Type: BLOOD SPECIMENOrdering Facility: [facility] Address: [address] [place] [address] Performed By: #### 1 988-5, 69582-9 ####[facility] [id number] [place] [id number] [place] Protein [Mass/Vol] 7.6 g/dL Normal 6.3-8.0 [facility] Comment on above: Order Comment: Speci men Type: BLOOD SPECIMENOrdering Facility: [facility] Address: [address] [place] [address] Performed By: #### 1 988-5, 81022-8 ####[facility]IA [id number] [place] [id number] [place] Sodium [Moles/Vol] 140 mmol/L Normal 136-144 [facility] Comment on above: Order Comment: Speci men Type: BLOOD SPECIMENOrdering Facility: [facility] Address: [address] [place] [address] Performed By: #### 1 988-5, 94317-3 ####[facility] [id number] [place] [id number] [place] Urea nitrogen [Mass/Vol] 18 mg/dL Normal 7-21 [facility] Comment on above: Order Comment: Speci men Type: BLOOD SPECIMENOrdering Facility: [facility] Address: [address] [place] [address] Performed By: #### 1 988-5, 26223-9 ####[facility] [id number] [place] [address] [place] ESR Westergren method (Bld) [Velocity]on 06-30-2024 ESR (Bld) [Velocity] 28 mm/h High 0-20 [facility] Comment on above: Order Comment: Speci men Type: BLOOD SPECIMENOrdering Facility: [facility] Address: [address] [place] [address] Performed By: #### 4 537-7 ####[facility] LABCLIA [id number] [place] [address] [place] CNPNon 06-16-2024 CNPN Normal [facility] ALLIED HEALTHon 06-13-2024 ALLIED HEALTH Normal [facility] CBC W Auto Differential pane l (Bld)on 06-13-2024 Basophils (Bld) [#/Vol] 0.10 10*3/uL [facility] Basophils/100 WBC (Bld) 0.7 % [facility] Differential cell count method Nom (Bld) Auto [facility] Eosinophils (Bld) [#/Vol] 0.15 10*3/uL [facility] Eosinophils/100 WBC (Bld) 1.1 % [facility] Erythrocyte distribution width (RBC) [Ratio] 14.2 % 11.5 - 15.0 % [facility] Hematocrit (Bld) [Volume fraction] 39.0 % 36.0 - 46.0 % [facility] Hemoglobin (Bld) [Mass/Vol] 13.0 g/dL 11.5 - 15.5 g/dL [facility] Immature granulocytes (Bld) [#/Vol] 0.21 10*3/uL High [facility] Immature granulocytes/100 WBC (Bld) 1.5 % [facility] Interpretation and review of laboratory results Abnormal [facility] Lymphocytes (Bld) [#/Vol] 2.16 10*3/uL [facility] Lymphocytes/100 WBC (Bld) 15.4 % [facility] MCH (RBC) [Entitic mass] 30.5 pg 26.0 - 34.0 pg [facility] MCHC (RBC) [Mass/Vol] 33.3 g/dL 30.5 - 36.0 g/dL [facility] MCV (RBC) [Entitic vol] 91.5 fL 80.0 - 100.0 fL [facility] Monocytes (Bld) [#/Vol] 0.79 10*3/uL [facility] Monocytes/100 WBC (Bld) 5.6 % [facility] Neutrophils (Bld) [#/Vol] 10.59 10*3/uL High [facility] Neutrophils/100 WBC (Bld) 75.7 % [facility] Nucleated RBC (Bld) [#/Vol] NINF [facility] Nucleated RBC/100 WBC (Bld) [Ratio] 0.0 % /100 WBC [facility] Platelet mean volume (Bld) [Entitic vol] 9.9 fL 9.0 - 12.7 fL [facility] Platelets (Bld) [#/Vol] 327 10*3/uL [facility] RBC (Bld) [#/Vol] 4.26 10*6/uL 3.90 - 5.2 0 m/uL [facility] WBC (Bld) [#/Vol] 14.00 10*3/uL High [facility] Basophils (Bld) [#/Vol] 0.10 10*3/uL Normal <0.11 [facility] Comment on above: Order Comment: Speci men Type: BLOOD SPECIMENOrdering Facility: [facility] Address: [address] [place] [address] Performed By: #### 5 7021-8 ####[facility]CLIA [id number] [place] [address] Basophils/100 WBC (Bld) 0.7 % Normal [facility] Comment on above: Order Comment: Speci men Type: BLOOD SPECIMENOrdering Facility: [facility] Address: [address] [place] [address] Performed By: #### 5 7021-8 ####[facility] LABCLIA [id number] [place] [address] Differential cell count method Nom (Bld) Auto Normal [facility] Comment on above: Order Comment: Speci men Type: BLOOD SPECIMENOrdering Facility: [facility] Address: [address] [place] [address] Performed By: #### 5 7021-8 ####[facility] LABCLIA [id number] [place] [address] Eosinophils (Bld) [#/Vol] 0.15 10*3/uL Normal <0.46 [facility] Comment on above: Order Comment: Speci men Type: BLOOD SPECIMENOrdering Facility: [facility] Address: [address] [place] [address] Performed By: #### 5 7021-8 ####[facility] LABCLIA [id number] [place] [address] Eosinophils/100 WBC (Bld) 1.1 % Normal [facility] Comment on above: Order Comment: Speci men Type: BLOOD SPECIMENOrdering Facility: [facility] Address: [address] [place] [address] Performed By: #### 5 7021-8 ####[facility] LABCLIA [id number] [place] [address] Erythrocyte distribution width (RBC) [Ratio] 14.2 % Normal 11.5-15.0 [facility] Comment on above: Order Comment: Speci men Type: BLOOD SPECIMENOrdering Facility: [facility] Address: [address] [place] [address] Performed By: #### 5 7021-8 ####[facility] LABCLIA [id number] [place] [address] Hematocrit (Bld) [Volume fraction] 39.0 % Normal 36.0-46.0 [facility] Comment on above: Order Comment: Speci men Type: BLOOD SPECIMENOrdering Facility: [facility] Address: [address] [place] [address] Performed By: #### 5 7021-8 ####[facility] LABCLIA [id number] [place] [address] Hemoglobin (Bld) [Mass/Vol] 13.0 g/dL Normal 11.5-15.5 [facility] Comment on above: Order Comment: Speci men Type: BLOOD SPECIMENOrdering Facility: [facility] Address: [address] [place] [address] Performed By: #### 5 7021-8 ####[facility] LABCLIA [id number] [place] [address] Immature granulocytes (Bld) [#/Vol] 0.21 10*3/uL High <0.10 [facility] Comment on above: Order Comment: Speci men Type: BLOOD SPECIMENOrdering Facility: [facility] Address: [address] [place] [address] Performed By: #### 5 7021-8 ####[facility] LABCLIA [id number] [place] [address] Immature granulocytes/100 WBC (Bld) 1.5 % Normal [facility] Comment on above: Order Comment: Speci men Type: BLOOD SPECIMENOrdering Facility: [facility] Address: [address] [place] [address] Performed By: #### 5 7021-8 ####[facility] LABCLIA [id number] [place] [address] Lymphocytes (Bld) [#/Vol] 2.16 10*3/uL Normal 1.00-4.00 [facility] Comment on above: Order Comment: Speci men Type: BLOOD SPECIMENOrdering Facility: [facility] Address: [address] [place] [address] Performed By: #### 5 7021-8 ####[facility] LABCLIA [id number] [place] [address] Lymphocytes/100 WBC (Bld) 15.4 % Normal [facility] Comment on above: Order Comment: Speci men Type: BLOOD SPECIMENOrdering Facility: [facility] Address: [address] [place] [address] Performed By: #### 5 7021-8 ####[facility] LABCLIA [id number] [place] [address] MCH (RBC) [Entitic mass] 30.5 pg Normal 26.0-34.0 [facility] Comment on above: Order Comment: Speci men Type: BLOOD SPECIMENOrdering Facility: [facility] Address: [address] [place] [address] Performed By: #### 5 7021-8 ####[facility] LABCLIA [id number] [place] [address] MCHC (RBC) [Mass/Vol] 33.3 g/dL Normal 30.5-36.0 [facility] Comment on above: Order Comment: Speci men Type: BLOOD SPECIMENOrdering Facility: [facility] Address: [address] [place] [address] Performed By: #### 5 7021-8 ####[facility] LABCLIA [id number] [place] [address] MCV (RBC) [Entitic vol] 91.5 fL Normal 80.0-100.0 [facility] Comment on above: Order Comment: Speci men Type: BLOOD SPECIMENOrdering Facility: [facility] Address: [address] [place] [address] Performed By: #### 5 7021-8 ####[facility] LABCLIA [id number] [place] [address] Monocytes (Bld) [#/Vol] 0.79 10*3/uL Normal <0.87 [facility] Comment on above: Order Comment: Speci men Type: BLOOD SPECIMENOrdering Facility: [facility] Address: [address] [place] [address] Performed By: #### 5 7021-8 ####[facility] LABCLIA [id number] [place] [address] Monocytes/100 WBC (Bld) 5.6 % Normal [facility] Comment on above: Order Comment: Speci men Type: BLOOD SPECIMENOrdering Facility: [facility] Address: [address] [place] [address] Performed By: #### 5 7021-8 ####[facility] LABCLIA [id number] [place] [address] Neutrophils (Bld) [#/Vol] 10.59 10*3/uL High 1.45-7.50 [facility] Comment on above: Order Comment: Speci men Type: BLOOD SPECIMENOrdering Facility: [facility] Address: [address] [place] [address] Performed By: #### 5 7021-8 ####[facility] LABCLIA [id number] [place] [address] Neutrophils/100 WBC (Bld) 75.7 % Normal [facility] Comment on above: Order Comment: Speci men Type: BLOOD SPECIMENOrdering Facility: [facility] Address: [address] [place] [address] Performed By: #### 5 7021-8 ####[facility] LABCLIA [id number] [place] [address] Nucleated RBC (Bld) [#/Vol] 10*3/uL Normal <0.01 [facility] Comment on above: Order Comment: Speci men Type: BLOOD SPECIMENOrdering Facility: [facility] Address: [address] [place] [address] Performed By: #### 5 7021-8 ####[facility] LABCLIA [id number] [place] [address] Nucleated RBC/100 WBC (Bld) [Ratio] 0.0 /100 WBC Normal [facility] Comment on above: Order Comment: Speci men Type: BLOOD SPECIMENOrdering Facility: [facility] Address: [address] [place] [address] Performed By: #### 5 7021-8 ####[facility] LABIA [id number] [place] [address] Platelet mean volume (Bld) [Entitic vol] 9.9 fL Normal 9.0-12.7 [facility] Comment on above: Order Comment: Speci men Type: BLOOD SPECIMENOrdering Facility: [facility] Address: [address] [place] [address] Performed By: #### 5 7021-8 ####[facility] LABCLIA [id number] [place] [address] Platelets (Bld) [#/Vol] 327 10*3/uL Normal 150-400 [facility] Comment on above: Order Comment: Speci men Type: BLOOD SPECIMENOrdering Facility: [facility] Address: [address] [place] [address] Performed By: #### 5 7021-8 ####[facility] LABCLIA [id number] [place] [address] RBC (Bld) [#/Vol] 4.26 10*6/uL Normal 3.90-5.20 [facility] Comment on above: Order Comment: Speci men Type: BLOOD SPECIMENOrdering Facility: [facility] Address: [address] [place] [address] Performed By: #### 5 7021-8 ####[facility] LABIA [id number] [place] [address] WBC (Bld) [#/Vol] 14.00 10*3/uL High 3.70-11.00 [facility] Comment on above: Order Comment: Speci men Type: BLOOD SPECIMENOrdering Facility: [facility] Address: [address] [place] [address] Performed By: #### 5 7021-8 ####[facility] LABIA [id number] [place] [address] CNOVSPon 06-13-2024 CNOVSP Normal [facility] metabolic 2000 panelOrdered By: Josse Merlos on 06-13-2024 Albumin [Mass/Vol] 3.9 g/dL 3.9 - 4.9 g/dL [facility] ALP [Catalytic activity/Vol] 73 U/L 34 - 123 U/L [facility] ALT [Catalytic activity/Vol] 24 U/L 7 - 38 U/L [facility] Anion gap [Moles/Vol] 15 mmol/L 8 - 15 mmol/L [facility] AST [Catalytic activity/Vol] 12 U/L Low 13 - 35 U/L [facility] Bilirubin [Mass/Vol] mg/dL Low 0.2 - 1 .3 mg/dL [facility] Calcium [Mass/Vol] 9.2 mg/dL 8.5 - 10. 2 mg/dL [facility] Chloride [Moles/Vol] 104 mmol/L 98 - 10 7 mmol/L [facility] CO2 [Moles/Vol] 19 mmol/L Low 22 - 30 mmol/L [facility] Creatinine [Mass/Vol] 0.58 mg/dL 0.58 - 0.96 mg/dL [facility] GFR/1.73 sq M.predicted among non-blacks MDRD (S/P/Bld) [Vol rate/Area] 115 mL/min/{1.73_m2} - PINF [facility] Comment on above: Estimated Glomerular [...] 163 mg/dL High 74 - 99 mg/dL [facility] Comment on above: The [place] [employer] (ADA) provides guidance for [...] [place] [employer]. Diabetes Care. 2016.39(Suppl 1). Interpretation and review of laboratory results Abnormal [facility] Potassium [Moles/Vol] 3.9 mmol/L 3.7 - 5.1 mmol/L [facility] Protein [Mass/Vol] 6.8 g/dL 6.3 - 8.0 g/dL [facility] Sodium [Moles/Vol] 138 mmol/L 136 - 144 mmol/L [facility] Urea nitrogen [Mass/Vol] 13 mg/dL 7 - 21 mg/dL [facility] Comprehensive metabolic 2000 panelon 06-13-2024 Albumin [Mass/Vol] 3.9 g/dL Normal 3.9-4.9 [facility] Comment on above: Order Comment: Speci men Type: BLOOD SPECIMENOrdering Facility: [facility] Address: [address] [place] [address] Performed By: #### 2 4323-8 ####[facility] LABCLIA [id number] [place] [address] ALP [Catalytic activity/Vol] 73 U/L Normal 34-123 [facility] Comment on above: Order Comment: Speci men Type: BLOOD SPECIMENOrdering Facility: [facility] Address: [address] [place] [address] Performed By: #### 2 4323-8 ####[facility] LABCLIA [id number] [place] [address] ALT [Catalytic activity/Vol] 24 U/L Normal 7-38 [facility] Comment on above: Order Comment: Speci men Type: BLOOD SPECIMENOrdering Facility: [facility] Address: [address] [place] [address] Performed By: #### 2 4323-8 ####[facility] LABCLIA [id number] [place] [address] Anion gap [Moles/Vol] 15 mmol/L Normal 8-15 [facility] Comment on above: Order Comment: Speci men Type: BLOOD SPECIMENOrdering Facility: [facility] Address: [address] [place] [address] Performed By: #### 2 4323-8 ####[facility] LABCLIA [id number] [place] [address] AST [Catalytic activity/Vol] 12 U/L Low 13-35 [facility] Comment on above: Order Comment: Speci men Type: BLOOD SPECIMENOrdering Facility: [facility] Address: [address] [place], [place] [id number] Performed By: #### 2 4323-8 ####[facility] LABCLIA [id number] [place] [address] Bilirubin [Mass/Vol] mg/dL Low 0.2-1.3 [facility] Comment on above: Order Comment: Speci men Type: BLOOD SPECIMENOrdering Facility: [facility] Address: [address] [place] [address] Performed By: #### 2 4323-8 ####[facility] [facility] LABCLIA [id number] [place] [address] Calcium [Mass/Vol] 9.2 mg/dL Normal 8.5-10.2 [facility] Comment on above: Order Comment: Speci men Type: BLOOD SPECIMENOrdering Facility: [facility] Address: [address] [place] [address] Performed By: #### 2 4323-8 ####[facility] LABCLIA [id number] [place] [address] Chloride [Moles/Vol] 104 mmol/L Normal 98-107 [facility] Comment on above: Order Comment: Speci men Type: BLOOD SPECIMENOrdering Facility: [facility] Address: [address] [place] [address] Performed By: #### 2 4323-8 ####[facility] LABCLIA [id number] [place] [address] CO2 [Moles/Vol] 19 mmol/L Low 22-30 [facility] Comment on above: Order Comment: Speci men Type: BLOOD SPECIMENOrdering Facility: [facility] Address: [address] [place], [place] [address] Performed By: #### 2 4323-8 ####[facility] LABCLIA [id number] [place] [address] Creatinine [Mass/Vol] 0.58 mg/dL Normal 0.58-0.96 [facility] Comment on above: Order Comment: Semaj cortés Type: BLOOD SPECIMENOrdering Facility: [facility] Address: [address] [place] [address] Performed By: #### 2 4323-8 ####[facility] LABCLIA [id number] [place] [address] Creatinine and Glomerular filtration rate.predicted panel (S/P/Bld) 115 mL/min/1.73m??? Normal >=60 [facility] Comment on above: Order Comment: Semaj cortés Type: BLOOD SPECIMENOrdering Facility: [facility] Address: [address] [place] [address] Result Comment: Erin mated Glomerular Filtration Rate [...] actual GFR. Performed By: #### 2 4323-8 ####[facility] LABCLIA [id number] [place] [address] Glucose [Mass/Vol] 163 mg/dL High 74-99 [facility] Comment on above: Order Comment: Semaj cortés Type: BLOOD SPECIMENOrdering Facility: [facility] Address: [address] [place] [address] Result Comment: The [place] [employer] (ADA) [...] 2016.39(Suppl 1). Performed By: #### 2 4323-8 ####[facility] LABCLIA [id number] [place] [address] Potassium [Moles/Vol] 3.9 mmol/L Normal 3.7-5.1 [facility] Comment on above: Order Comment: Speci men Type: BLOOD SPECIMENOrdering Facility: [facility] Address: [address] [place] [address] Performed By: #### 2 4323-8 ####[facility] LABCLIA [id number] [place] [address] Protein [Mass/Vol] 6.8 g/dL Normal 6.3-8.0 [facility] Comment on above: Order Comment: Speci men Type: BLOOD SPECIMENOrdering Facility: [facility] Address: [address] [place] [address] Performed By: #### 2 4323-8 ####[facility] LABCLIA [id number] [place] [address] Sodium [Moles/Vol] 138 mmol/L Normal 136-144 [facility] Comment on above: Order Comment: Speci men Type: BLOOD SPECIMENOrdering Facility: [facility] Address: [address] [place] [address] Performed By: #### 2 4323-8 ####[facility] LABCLIA [id number] [place] [address] Urea nitrogen [Mass/Vol] 13 mg/dL Normal 7-21 [facility] Comment on above: Order Comment: Speci men Type: BLOOD SPECIMENOrdering Facility: [facility] Address: [address] [place] [address] Performed By: #### 2 4323-8 ####[facility] LABCLIA [id number] [place] [address] ESR Westergren method (Bld) [Velocity]on 06-13-2024 ESR (Bld) [Velocity] 30 mm/h High [facility] Interpretation and review of laboratory results Abnormal [facility] ESR (Bld) [Velocity] 30 mm/h High 0-20 [facility] Comment on above: Order Comment: Speci men Type: BLOOD SPECIMENOrdering Facility: [facility] Address: [address] [place] [address] Performed By: #### 4 537-7 ####[facility] LABCLIA [id number] [place] [address] [place] FERRITINon 06-13-2024 Ferritin [Mass/Vol] 30.9 ng/mL 14.7 - 2 05.1 ng/mL [facility] FOLATE, SERUMon 06-13-2024 Folate [Mass/Vol] 19.6 ng/mL 4.7 - PINF ng/mL [facility] Ferritin SerPl-mCncon 2024 Ferritin [Mass/Vol] 30.9 ng/mL Normal 14.7-205.1 [facility] Comment on above: Order Comment: Speci men Type: BLOOD SPECIMENOrdering Facility: [facility] Address: [address] [place] [address] Performed By: #### 2 284-8, 2276-4, 78847-6, 2132-9 ####[facility] LABCLIA [id number] [place] [id number] [place] Ferritin [Mass/Vol]on 2024 Interpretation and review of laboratory results Normal [facility] Folate SerPl-mCncon 06-13-19 25 Folate [Mass/Vol] 19.6 ng/mL Normal >4.7 [facility] Comment on above: Order Comment: Speci men Type: BLOOD SPECIMENOrdering Facility: [facility] Address: [address] [place] [address] Performed By: #### 2 284-8, 2276-4, 04145-0, 2131-9 ####[facility] LABCLIA [id number] [place] [address] [place] IMMUNOGLOBULINS,IGG,IGA,IGMo n 06-13-2024 IgA [Mass/Vol] 170 mg/dL Normal 70-400 [facility] Comment on above: Order Comment: Speci men Type: BLOOD SPECIMENOrdering Facility: [facility] Address: [address] [place] [address] Performed By: #### S ERIMM ####[facility] LABCLIA [id number] [place] [address] [place] IgG [Mass/Vol] 663 mg/dL Low 700-1600 [facility] Comment on above: Order Comment: Speci men Type: BLOOD SPECIMENOrdering Facility: [facility] Address: [address] [place] [address] Performed By: #### S ERIMM ####[facility] LABCLIA [id number] [place] [address] [place] IgM [Mass/Vol] 376 mg/dL High 40-230 [facility] Comment on above: Order Comment: Speci men Type: BLOOD SPECIMENOrdering Facility: [facility] Address: [address] [place] [address] Performed By: #### S ERIMM ####[facility] LABCLIA [id number] [place] [address] [place] Iron and Iron binding capaci ty panelon 06-13-2024 Iron [Mass/Vol] 64 ug/dL Normal 41-186 [facility] Comment on above: Order Comment: Speci men Type: BLOOD SPECIMENOrdering Facility: [facility] Address: [address] [place] [address] Performed By: #### 2 284-8, 2276-4, 87268-0, 2131-9 ####[facility] LABCLIA [id number] [place] [id number] [place] Iron binding capacity [Mass/Vol] 409 ug/dL High 232-386 [facility] Comment on above: Order Comment: Speci men Type: BLOOD SPECIMENOrdering Facility: [facility] Address: [address] [place], [place] [address] Performed By: #### 2 284-8, 2276-4, 19354-9, 2131-9 ####[facility] LABIA [id number] [place] [address] [place] Iron/TIBC [Molar ratio] 15.6 % Normal 15.0-57.0 [facility] Comment on above: Order Comment: Speci men Type: BLOOD SPECIMENOrdering Facility: [facility] Address: [address] [place] [address] Performed By: #### 2 284-8, 2276-4, 53245-7, 2131-9 ####[facility] LABIA [id number] [place] [address] [place] Laboratory - Chemistry and C hemistry - challengeon 06-13-2024 IgA [Mass/Vol] 170 mg/dL 70 - 400 mg/dL [facility] IgG [Mass/Vol] 663 mg/dL Low 700 - 1600 mg/dL [facility] IgM [Mass/Vol] 376 mg/dL High 40 - 230 mg/dL [facility] No Panel Informationon 06-13 Interpretation and review of laboratory results Normal [facility] Interpretation and review of laboratory results Abnormal [facility] VITAMIN B12on 06-13-2024 Cobalamin (Vitamin B12) [Mass/Vol] 516 pg/mL 232 - 1245 pg/mL [facility] Vit B12 SerPl-mCncon 025 Cobalamin (Vitamin B12) [Mass/Vol] 516 pg/mL Normal 232-1245 [facility] Comment on above: Order Comment: Speci men Type: BLOOD SPECIMENOrdering Facility: [facility] Address: [address] [place] [address] Performed By: #### 2 284-8, 2276-4, 67342-4, 2132-9 ####[facility] LABCLIA [id number] [facility] [id number] [address] [place] CNPNon 06-12-2024 CNPN Normal [facility] IGP,APTIMA HPV,AGE GDLNon AGE GDLN ACOG TESTING Note . [facility] Comment on above: TESTS RESULT FLAG UN ITS REF RANGE LAB Clinician Provided Cytology Information Source.............Cervix;Endocervix No. of containers..01 ThinPrep Vial Age Algo ACOG Vicky... 30-65 01 FLAG LEGEND: L-Low Normal,H-High Normal,LL-Alert Low,HH-Alert High <-Panic Low,>-Panic High,A-Abnormal,AA-Critical Abnormal Performed at: 01 =G [facility] [address] Aparna Solorzano MD, HPV APTIMA Negative Negative [facility] Comment on above: This nucleic acid am plification test detects fourteen high- risk HPV types (16,18,31,33,35,39,45,51,52,56,58,59,66,68) without differentiation. Performed at: =G - [facility] [address] [facility], [place] [id number] Oncology Rep: Aparna Solorzano MD, Phone: [phone] Performed at: - [facility] [address] [facility], [place] [id number] Oncology Rep: Aparna Solorzano MD, Phone: [phone] IGP, APTIMA HPV, RFX 16/18,45 Note . [facility] Comment on above: TESTS RESULT FLAG UN ITS REF RANGE LAB DIAGNOSIS: 02 NEGATIVE FOR INTRAEPITHELIAL LESION OR MALIGNANCY. Specimen adequacy: 02 Satisfactory for evaluation. Endocervical and/or squamous metaplastic cells (endocervical component) are present. Performed by: 02 Kenzie Kam, Coloring Machine Operator ([facility]) . 02 Note: Note 02 The Pap [...] <-Panic Low,>-Panic High,A-Abnormal,AA-Critical Abnormal Performed at: 02 [facility] [address] [facility] [place] [address] Aparna Solorzano MD, BRUSH-SPATULA CERVIX ENDOCERVIX [facility] CBC W Auto Differential pane l (Bld)on 05-19-2024 Basophils (Bld) [#/Vol] 0.08 10*3/uL [facility] Basophils/100 WBC (Bld) 0.6 % [facility] Differential cell count method Nom (Bld) Auto [facility] Eosinophils (Bld) [#/Vol] 0.17 10*3/uL [facility] Eosinophils/100 WBC (Bld) 1.2 % [facility] Erythrocyte distribution width (RBC) [Ratio] 14.3 % 11.5 - 15.0 % [facility] Hematocrit (Bld) [Volume fraction] 39.8 % 36.0 - 46.0 % [facility] Hemoglobin (Bld) [Mass/Vol] 13.4 g/dL 11.5 - 15.5 g/dL [facility] Immature granulocytes (Bld) [#/Vol] 0.13 10*3/uL High [facility] Immature granulocytes/100 WBC (Bld) 0.9 % [facility] Interpretation and review of laboratory results Abnormal [facility] Lymphocytes (Bld) [#/Vol] 2.96 10*3/uL [facility] Lymphocytes/100 WBC (Bld) 20.5 % [facility] MCH (RBC) [Entitic mass] 31.1 pg 26.0 - 34.0 pg [facility] MCHC (RBC) [Mass/Vol] 33.7 g/dL 30.5 - 36.0 g/dL [facility] MCV (RBC) [Entitic vol] 92.3 fL 80.0 - 100.0 fL [facility] Monocytes (Bld) [#/Vol] 0.87 10*3/uL High [facility] Monocytes/100 WBC (Bld) 6.0 % [facility] Neutrophils (Bld) [#/Vol] 10.20 10*3/uL High [facility] Neutrophils/100 WBC (Bld) 70.8 % [facility] Nucleated RBC (Bld) [#/Vol] [facility] Nucleated RBC/100 WBC (Bld) [Ratio] 0.0 % /100 WBC [facility] Platelet mean volume (Bld) [Entitic vol] 10.1 fL 9.0 - 12.7 fL [facility] Platelets (Bld) [#/Vol] 303 10*3/uL [facility] RBC (Bld) [#/Vol] 4.31 10*6/uL 3.90 - 5.2 0 m/uL [facility] WBC (Bld) [#/Vol] 14.41 10*3/uL High [facility] Basophils (Bld) [#/Vol] 0.08 10*3/uL Normal <0.11 [facility] Comment on above: Order Comment: Speci men Type: BLOOD SPECIMENOrdering Facility: [facility] Address: [address] [place] [address] Performed By: #### 5 7021-8 ####[facility] LABCLIA [id number] [place] [address] Basophils/100 WBC (Bld) 0.6 % Normal [facility] Comment on above: Order Comment: Speci men Type: BLOOD SPECIMENOrdering Facility: [facility] Address: [address] [place] [address] Performed By: #### 5 7021-8 ####[facility] LABCLIA [id number] [place] [address] Differential cell count method Nom (Bld) Auto Normal [facility] Comment on above: Order Comment: Speci men Type: BLOOD SPECIMENOrdering Facility: [facility] Address: [address] [place] [address] Performed By: #### 5 7021-8 ####[facility] LABCLIA [id number] [place] [address] Eosinophils (Bld) [#/Vol] 0.17 10*3/uL Normal <0.46 [facility] Comment on above: Order Comment: Speci men Type: BLOOD SPECIMENOrdering Facility: [facility] Address: [address] [place] [address] Performed By: #### 5 7021-8 ####[facility] LABCLIA [id number] [place] [address] Eosinophils/100 WBC (Bld) 1.2 % Normal [facility] Comment on above: Order Comment: Speci men Type: BLOOD SPECIMENOrdering Facility: [facility] Address: [address] [place] [address] Performed By: #### 5 7021-8 ####[facility] LABCLIA [id number] [place] [address] Erythrocyte distribution width (RBC) [Ratio] 14.3 % Normal 11.5-15.0 [facility] Comment on above: Order Comment: Speci men Type: BLOOD SPECIMENOrdering Facility: [facility] Address: [address] [place] [address] Performed By: #### 5 7021-8 ####[facility] LABIA [id number] [place] [address] Hematocrit (Bld) [Volume fraction] 39.8 % Normal 36.0-46.0 [facility] Comment on above: Order Comment: Speci men Type: BLOOD SPECIMENOrdering Facility: [facility] Address: [address] [place] [address] Performed By: #### 5 7021-8 ####[facility] LABCLIA [id number] [place] [address] Hemoglobin (Bld) [Mass/Vol] 13.4 g/dL Normal 11.5-15.5 [facility] Comment on above: Order Comment: Speci men Type: BLOOD SPECIMENOrdering Facility: [facility] Address: [address] [place] [address] Performed By: #### 5 7021-8 ####[facility] LABIA [id number] [place] [address] Immature granulocytes (Bld) [#/Vol] 0.13 10*3/uL High <0.10 [facility] Comment on above: Order Comment: Speci men Type: BLOOD SPECIMENOrdering Facility: [facility] Address: [address] [place] [address] Performed By: #### 5 7021-8 ####[facility] LABCLIA [id number] [place] [address] Immature granulocytes/100 WBC (Bld) 0.9 % Normal [facility] Comment on above: Order Comment: Speci men Type: BLOOD SPECIMENOrdering Facility: [facility] Address: [address] [place] [address] Performed By: #### 5 7021-8 ####[facility] LABCLIA [id number] [place] [address] Lymphocytes (Bld) [#/Vol] 2.96 10*3/uL Normal 1.00-4.00 [facility] Comment on above: Order Comment: Speci men Type: BLOOD SPECIMENOrdering Facility: [facility] Address: [address] [place] [address] Performed By: #### 5 7021-8 ####[facility] LABCLIA [id number] [place] [address] Lymphocytes/100 WBC (Bld) 20.5 % Normal [facility] Comment on above: Order Comment: Speci men Type: BLOOD SPECIMENOrdering Facility: [facility] Address: [address] [place] [address] Performed By: #### 5 7021-8 ####[facility] LABCLIA [id number] [place] [address] MCH (RBC) [Entitic mass] 31.1 pg Normal 26.0-34.0 [facility] Comment on above: Order Comment: Speci men Type: BLOOD SPECIMENOrdering Facility: [facility] Address: [address] [place] [address] Performed By: #### 5 7021-8 ####[facility] LABCLIA [id number] [place] [address] MCHC (RBC) [Mass/Vol] 33.7 g/dL Normal 30.5-36.0 [facility] Comment on above: Order Comment: Speci men Type: BLOOD SPECIMENOrdering Facility: [facility] Address: [address] [place] [address] Performed By: #### 5 7021-8 ####[facility] LABCLIA [id number] [place] [address] MCV (RBC) [Entitic vol] 92.3 fL Normal 80.0-100.0 [facility] Comment on above: Order Comment: Speci men Type: BLOOD SPECIMENOrdering Facility: [facility] Address: [address] [place] [address] Performed By: #### 5 7021-8 ####[facility] LABCLIA [id number] [place] [address] Monocytes (Bld) [#/Vol] 0.87 10*3/uL High <0.87 [facility] Comment on above: Order Comment: Speci men Type: BLOOD SPECIMENOrdering Facility: [facility] Address: [address] [place] [address] Performed By: #### 5 7021-8 ####[facility] LABCLIA [id number] [place] [address] Monocytes/100 WBC (Bld) 6.0 % Normal [facility] Comment on above: Order Comment: Speci men Type: BLOOD SPECIMENOrdering Facility: [facility] Address: [address] [place] [address] Performed By: #### 5 7021-8 ####[facility] LABCLIA [id number] [place] [address] Neutrophils (Bld) [#/Vol] 10.20 10*3/uL High 1.45-7.50 [facility] Comment on above: Order Comment: Speci men Type: BLOOD SPECIMENOrdering Facility: [facility] Address: [address] [place] [address] Performed By: #### 5 7021-8 ####[facility] LABCLIA [id number] [place] [address] Neutrophils/100 WBC (Bld) 70.8 % Normal [facility] Comment on above: Order Comment: Speci men Type: BLOOD SPECIMENOrdering Facility: [facility] Address: [address] [place] [address] Performed By: #### 5 7021-8 ####[facility] LABCLIA [id number] [place] [address] Nucleated RBC (Bld) [#/Vol] 10*3/uL Normal <0.01 [facility] Comment on above: Order Comment: Speci men Type: BLOOD SPECIMENOrdering Facility: [facility] Address: [address] [place] [address] Performed By: #### 5 7021-8 ####[facility] LABCLIA [id number] [place] [address] Nucleated RBC/100 WBC (Bld) [Ratio] 0.0 /100 WBC Normal [facility] Comment on above: Order Comment: Speci men Type: BLOOD SPECIMENOrdering Facility: [facility] Address: [address] [place] [address] Performed By: #### 5 7021-8 ####[facility] LABCLIA [id number] [place] [address] Platelet mean volume (Bld) [Entitic vol] 10.1 fL Normal 9.0-12.7 [facility] Comment on above: Order Comment: Speci men Type: BLOOD SPECIMENOrdering Facility: [facility] Address: [address] [place] [address] Performed By: #### 5 7021-8 ####[facility] LABCLIA [id number] [place] [address] Platelets (Bld) [#/Vol] 303 10*3/uL Normal 150-400 [facility] Comment on above: Order Comment: Speci men Type: BLOOD SPECIMENOrdering Facility: [facility] Address: [address] [place] [address] Performed By: #### 5 7021-8 ####[facility] LABIA [id number] [place] [address] RBC (Bld) [#/Vol] 4.31 10*6/uL Normal 3.90-5.20 [facility] Comment on above: Order Comment: Speci men Type: BLOOD SPECIMENOrdering Facility: [facility] Address: [address] [place] [address] Performed By: #### 5 7021-8 ####[facility] LABIA [id number] [place] [address] WBC (Bld) [#/Vol] 14.41 10*3/uL High 3.70-11.00 [facility] Comment on above: Order Comment: Speci men Type: BLOOD SPECIMENOrdering Facility: [facility] Address: [address] [place] [address] Performed By: #### 5 7021-8 ####[facility] LABIA [id number] [place] [address] Comprehensive metabolic 2000 panelon 05-19-2024 Albumin [Mass/Vol] 4.0 g/dL 3.9 - 4.9 g/dL [facility] ALP [Catalytic activity/Vol] 79 U/L 34 - 123 U/L [facility] ALT [Catalytic activity/Vol] 25 U/L 7 - 38 U/L [facility] Anion gap [Moles/Vol] 14 mmol/L 8 - 15 mmol/L [facility] AST [Catalytic activity/Vol] 12 U/L Low 13 - 35 U/L [facility] Bilirubin [Mass/Vol] mg/dL Low 0.2 - 1 .3 mg/dL [facility] Calcium [Mass/Vol] 9.4 mg/dL 8.5 - 10. 2 mg/dL [facility] Chloride [Moles/Vol] 105 mmol/L 98 - 10 7 mmol/L [facility] CO2 [Moles/Vol] 21 mmol/L Low 22 - 30 mmol/L [facility] Creatinine [Mass/Vol] 0.49 mg/dL Low 0.58 - 0.96 mg/dL [facility] GFR/1.73 sq M.predicted among non-blacks MDRD (S/P/Bld) [Vol rate/Area] 120 mL/min/{1.73_m2} - PINF [facility] Comment on above: Estimated Glomerular [...] 155 mg/dL High 74 - 99 mg/dL [facility] Comment on above: The [place] [employer] (ADA) provides guidance for [...] [place] [employer]. Diabetes Care. 2016.39(Suppl 1). Interpretation and review of laboratory results Abnormal [facility] Potassium [Moles/Vol] 3.8 mmol/L 3.7 - 5.1 mmol/L [facility] Protein [Mass/Vol] 6.6 g/dL 6.3 - 8.0 g/dL [facility] Sodium [Moles/Vol] 140 mmol/L 136 - 144 mmol/L [facility] Urea nitrogen [Mass/Vol] 12 mg/dL 7 - 21 mg/dL [facility] Albumin [Mass/Vol] 4.0 g/dL Normal 3.9-4.9 [facility] Comment on above: Order Comment: Speci men Type: BLOOD SPECIMENOrdering Facility: [facility] Address: [address] [place] [address] Performed By: #### 2 4323-8 ####[facility] LABCLIA [id number] [place] [address] [place] OF [place] ALP [Catalytic activity/Vol] 79 U/L Normal 34-123 [facility] Comment on above: Order Comment: Speci men Type: BLOOD SPECIMENOrdering Facility: [facility] Address: [address] [place] [address] Performed By: #### 2 4323-8 ####[facility] LABCLIA [id number] [place] [address] [place] ALT [Catalytic activity/Vol] 25 U/L Normal 7-38 [facility] Comment on above: Order Comment: Speci men Type: BLOOD SPECIMENOrdering Facility: [facility] Address: [address] [place] [address] Performed By: #### 2 4323-8 ####[facility] LABCLIA [id number] [place] [address] [place] Anion gap [Moles/Vol] 14 mmol/L Normal 8-15 [facility] Comment on above: Order Comment: Speci men Type: BLOOD SPECIMENOrdering Facility: [facility] Address: [address] [place] [address] Performed By: #### 2 4323-8 ####[facility] LABCLIA [id number] [place] [address] [place] AST [Catalytic activity/Vol] 12 U/L Low 13-35 [facility] Comment on above: Order Comment: Speci men Type: BLOOD SPECIMENOrdering Facility: [facility] Address: [address] [place] [address] Performed By: #### 2 4323-8 ####[facility] LABCLIA [id number] [place] [address] [place] Bilirubin [Mass/Vol] mg/dL Low 0.2-1.3 [facility] Comment on above: Order Comment: Speci men Type: BLOOD SPECIMENOrdering Facility: [facility] Address: [address] [id number] Performed By: #### 2 4323-8 ####[facility] LABCLIA [id number] [place] [address] [place] Calcium [Mass/Vol] 9.4 mg/dL Normal 8.5-10.2 [facility] Comment on above: Order Comment: Speci men Type: BLOOD SPECIMENOrdering Facility: [facility] Address: [address] [place] [address] Performed By: #### 2 4323-8 ####[facility] LABCLIA [id number] [place] [address] [place] Chloride [Moles/Vol] 105 mmol/L Normal 98-107 [facility] Comment on above: Order Comment: Speci men Type: BLOOD SPECIMENOrdering Facility: [facility] Address: [address] [place] [address] Performed By: #### 2 4323-8 ####[facility] LABCLIA [id number] [place] [address] [place] CO2 [Moles/Vol] 21 mmol/L Low 22-30 [facility] Comment on above: Order Comment: Speci men Type: BLOOD SPECIMENOrdering Facility: [facility] Address: [address] [place] [address] Performed By: #### 2 4323-8 ####[facility] LABCLIA [id number] [place] [address] [place] Creatinine [Mass/Vol] 0.49 mg/dL Low 0.58-0.96 [facility] Comment on above: Order Comment: Speci men Type: BLOOD SPECIMENOrdering Facility: [facility] Address: [address] [place] [address] Performed By: #### 2 4323-8 ####[facility] LABCLIA [id number] [place] [address] [place] Creatinine and Glomerular filtration rate.predicted panel (S/P/Bld) 120 mL/min/1.73m??? Normal >=60 [facility] Comment on above: Order Comment: Semaj cortés Type: BLOOD SPECIMENOrdering Facility: [facility] Address: [address] [place] [address] Result Comment: Erin mated Glomerular Filtration Rate [...] actual GFR. Performed By: #### 2 4323-8 ####[facility] LABIA [id number] [place] [address] [place] Glucose [Mass/Vol] 155 mg/dL High 74-99 [facility] Comment on above: Order Comment: Semaj cortés Type: BLOOD SPECIMENOrdering Facility: [facility] Address: [address] [place] [address] Result Comment: The [place] [employer] (ADA) [...] 2016.39(Suppl 1). Performed By: #### 2 4323-8 ####[facility] LABCLIA [id number] [place] [address] [place] Potassium [Moles/Vol] 3.8 mmol/L Normal 3.7-5.1 [facility] Comment on above: Order Comment: Speci men Type: BLOOD SPECIMENOrdering Facility: [facility] Address: [address] [place] [address] Performed By: #### 2 4323-8 ####[facility] LABCLIA [id number] [place] [address] [place] Protein [Mass/Vol] 6.6 g/dL Normal 6.3-8.0 [facility] Comment on above: Order Comment: Speci men Type: BLOOD SPECIMENOrdering Facility: [facility] Address: [address] [place] [address] Performed By: #### 2 4323-8 ####[facility] LABCLIA [id number] [place] [address] [place] Sodium [Moles/Vol] 140 mmol/L Normal 136-144 [facility] Comment on above: Order Comment: Speci men Type: BLOOD SPECIMENOrdering Facility: [facility] Address: [address] [place] [address] Performed By: #### 2 4323-8 ####[facility] LABIA [id number] [place] [address] [place] Urea nitrogen [Mass/Vol] 12 mg/dL Normal 7-21 [facility] Comment on above: Order Comment: Speci men Type: BLOOD SPECIMENOrdering Facility: [facility] Address: [address] [place] [address] Performed By: #### 2 4323-8 ####[facility] LABCLIA [id number] [place] [address] [place] ESR Westergren method (Bld) [Velocity]on 05-19-2024 ESR (Bld) [Velocity] 21 mm/h [facility] Interpretation and review of laboratory results Abnormal [facility] ESR (Bld) [Velocity] 21 mm/h [facility] 0-20 [facility] Comment on above: Order Comment: Speci men Type: BLOOD SPECIMENOrdering Facility: [facility] Address: [address] [place] [address] Performed By: #### 4 537-7 ####[facility] LABCLIA [id number] [place] [address] [place] FERRITIN BLDon 05-19-2024 Ferritin [Mass/Vol] 20.6 ng/mL 14.7 - 2 05.1 ng/mL [facility] FOLATE SERUMon 05-19-2024 Folate [Mass/Vol] 11.1 ng/mL 4.7 - PINF ng/mL [facility] Ferritin SerPl-mCncon 2023 Ferritin [Mass/Vol] 20.6 ng/mL Normal 14.7-205.1 [facility] Comment on above: Order Comment: Speci men Type: BLOOD SPECIMENOrdering Facility: [facility] Address: [address] [place] [address] Performed By: #### 5 0190-8, 2276-4, 4-8, 9 ####[facility] LABCLIA [id number] [place] [address] [place] Folate SerPl-mCncon 05-19-20 24 Folate [Mass/Vol] 11.1 ng/mL Normal >4.7 [facility] Comment on above: Order Comment: Speci men Type: BLOOD SPECIMENOrdering Facility: [facility] Address: [address] [place] [address] Performed By: #### 5 0190-8, 2276-4, 2283-8, 9 ####[facility] LABCLIA [id number] [place] [address] [place] Iron and Iron binding capaci ty panelon 05-19-2024 Interpretation and review of laboratory results Abnormal [facility] Iron [Mass/Vol] 47 ug/dL 41 - 186 ug/dL [facility] Iron binding capacity [Mass/Vol] 420 ug/dL High 232 - 386 ug/dL [facility] Iron/TIBC [Molar ratio] 11.2 % Low 15.0 - 57.0 % [facility] Iron [Mass/Vol] 47 ug/dL Normal 41-186 [facility] Comment on above: Order Comment: Speci men Type: BLOOD SPECIMENOrdering Facility: [facility] Address: [address] [place], [place] [id number] Performed By: #### 5 0190-8, 6-4, 2283-8, 9 ####[facility] LABIA [id number] [place] [address] [place] Iron binding capacity [Mass/Vol] 420 ug/dL High 232-386 [facility] Comment on above: Order Comment: Speci men Type: BLOOD SPECIMENOrdering Facility: [facility] Address: [address] [place] [address] Performed By: #### 5 0190-8, 6-4, 2283-8, 9 ####[facility] LABIA [id number] [place] [address] [place] Iron/TIBC [Molar ratio] 11.2 % Low 15.0-57.0 [facility] Comment on above: Order Comment: Speci men Type: BLOOD SPECIMENOrdering Facility: [facility] Address: [address] [place] [address] Performed By: #### 5 0190-8, 2276-4, 2283-8, 2132-01 ####[facility] LABCLIA [id number] [address] [place] [id number] [place] No Panel Informationon 05-19 Interpretation and review of laboratory results Normal [facility] VITAMIN B12 BLOODon 05-19-20 Cobalamin (Vitamin B12) [Mass/Vol] 632 pg/mL 232 - 1245 pg/mL [facility] Vit B12 SerPl-mCncon 024 Cobalamin (Vitamin B12) [Mass/Vol] 632 pg/mL Normal 232-1245 [facility] Comment on above: Order Comment: Speci men Type: BLOOD SPECIMENOrdering Facility: [facility] Address: [address] [place] [address] Performed By: #### 5 0190-8, 2276-4, 2284-8, 2132-9 ####[facility] LABCLIA [id number] [facility] [place] [address] [place] CNNURSEon 04-26-2024 CNNURSE Normal [facility] CNPNon 04-10-2024 CNPN Normal [facility] ALL CBC WITH AUTO DIFFon BASOPHILS ABSOLUTE AUTO 0.1 [facility] Basophils/100 WBC (Bld) 0.4 % 0.2 - 2.0 % [facility] Eosinophils/100 WBC (Bld) 0.4 % Low 0.9 - 7.0 % [facility] Erythrocyte distribution width (RBC) [Ratio] 15.1 % High 11.0 - 15.0 % [facility] Hematocrit (Bld) [Volume fraction] 39.7 % 36.0 - 48.0 % [facility] Hemoglobin (Bld) [Mass/Vol] 13 g/dL 12.0 - 16.0 g/dL [facility] IMMATURE GRANULOCYTES ABS AUTO 0.1 High [facility] Immature granulocytes/100 WBC (Bld) 0.9 % High 0.0 - 0.5 % [facility] Interpretation and review of laboratory results Abnormal [facility] LYMPHOCYTES ABSOLUTE AUTO 2.1 [facility] Lymphocytes/100 WBC (Bld) 18.4 % Low 20.5 - 60.0 % [facility] MCH (RBC) [Entitic mass] 30.9 pg 26.7 - 34.0 pg [facility] MCHC (RBC) [Mass/Vol] 32.7 g/dL 29.9 - 35.2 g/dL [facility] MCV (RBC) [Entitic vol] 94.3 fL 81.0 - 99.0 fL [facility] MONOCYTES ABSOLUTE AUTO 0.8 NOMS [facility] Monocytes/100 WBC (Bld) 6.7 % 1.7 - 12.0 % [facility] NEUTROPHILS ABSOLUTE AUTO 8.3 High [facility] Neutrophils/100 WBC (Bld) 73.2 % 43.0 - 75.0 % [facility] Platelet mean volume (Bld) [Entitic vol] 10.1 fL 9.5 - 13.5 [facility]L [facility] PLT 326 [facility] RBC 4.21 [facility] WBC 11.4 High [facility] ALL THYROID STIM HORMONEon 1 06-06-2023 Interpretation and review of laboratory results Abnormal [facility] TSH Qn 0.333 m[IU]/L Low [facility] ALL THYROXINE (T4) FREEon Free T4 [Mass/Vol] 1.01 ng/dL 0.76 - 1. 46 ng/dL [facility] CCF APTTon 04-06-2024 aPTT Coag (Bld) [Time] 25.6 s [facility] MLR HEMOGLOBIN A1Con 024 Glucose [Mass/Vol] 134 mg/dL [facility] HbA1c (Bld) [Mass fraction] 6.3 % High 4.5 - 6.2 % [facility] Comment on above: ADA RECOMMENDED LIMI T 4.0 - 6.0 ADA THERAPEUTIC TARGET < 7.0 ACTION SUGGESTED > 7.0 Interpretation and review of laboratory results Abnormal [facility] No Panel Informationon 04-06 [facility] SRMCOH PROTHROMBIN TIME INR W/O COUMon 04-06-2024 PT Coag (PPP) [Time] 9.[address] [facility] INR <0.93 [facility] Comment on above: DESIRED INR: 2.0-3.0 CONDITIONS NOT LISTED BELOW 2.5-3.5 FOR PROSTHETIC HEART VALVE REPLACEMENT 2.5-3.5 RECURRENT THROMBOSIS TBH PREG QUANT HCGon 024 HCG QUANTITATIVE <1 mIU/mL [facility] Comment on above: 5-50 0.2-1 WEEK 50-500 1-2 WEEKS 100-5,000 2-3 WEEKS 500-10,000 3-4 WEEKS 1,000-50,000 4-5 WEEKS 10,000-100,000 5-6 WEEKS 15,000-200,000 6-8 WEEKS 10,000-100,000 2-3 MONTHS CNPNon 04-02-2024 CNPN Normal [facility] 25(OH)D3 SerPl-mCncon 2023 25-hydroxyvitamin D3 [Mass/Vol] 19.9 ng/mL Low 31.0-80.0 [facility] Comment on above: Order Comment: Speci men Type: BLOOD SPECIMENOrdering Facility: [facility] Address: [address] [place] [address] Result Comment: Clas sification of 25 [place] Vitamin D status:Deficiency/Insufficiency: < or = 30 ng/ml.Sufficiency/Optimal Levels: 31-80 ng/mLToxicity: > 100 ng/mL.Test performed by chemiluminescent immunoassay. Performed By: #### 1 989-3 ####[facility] LABIA [id number] [place] [address] [place] BLOOD TB SCREENon 03-23-2024 M. tuberculosis tuberculin stim IFN-g Ql (Bld) Negative Normal [facility] Comment on above: Order Comment: Speci men Type: BLOOD SPECIMENOrdering Facility: [facility] Address: [address] [place] [address] Performed By: #### I NFTBP ####[facility] LABIA [id number] [place] [address] [place] MITOGEN MINUS NIL >10.00 Normal >=0.50 [facility] Comment on above: Order Comment: Speci men Type: BLOOD SPECIMENOrdering Facility: [facility] Address: [address] [place] [address] Performed By: #### I NFTBP ####[facility] LABIA [id number] [place] [address] [place] TB GAMMA INTERPRETATION Normal [facility] Comment on above: Order Comment: Speci men Type: BLOOD SPECIMENOrdering Facility: [facility] Address: [address] [place] [address] Performed By: #### I NFTBP ####[facility] LABCLIA [id number] [place] [address] [place] TB NIL <0.00 Normal <=8.00 [facility] Comment on above: Order Comment: Speci men Type: BLOOD SPECIMENOrdering Facility: [facility] Address: [address] [place] [address] Performed By: #### I NFTBP ####[facility] LABCLIA [id number] [place] [address] [place] TB1 AG MINUS NIL 0.00 IU/mL Normal <0.35 [facility] Comment on above: Order Comment: Speci men Type: BLOOD SPECIMENOrdering Facility: [facility] Address: [address] [place] [address] Performed By: #### I NFTBP ####[facility] LABCLIA [id number] [address] [place] TB2 AG MINUS NIL 0.00 IU/mL Normal <0.35 [facility] Comment on above: Order Comment: Speci men Type: BLOOD SPECIMENOrdering Facility: [facility] Address: [address] [place] [address] Performed By: #### I NFTBP ####[facility] LABCLIA [id number] [place] [address] [place] Bacteria Bld Culton 03-23-20 24 Bacteria identified Cx Nom (Bld) CULTURE, BLOOD: No growth 5 days Normal [facility] Comment on above: Performed By: #### 6 00-7 ####[facility] LABCLIA [id number] [place] [address] [place] CBC W Auto Differential pane l (Bld)on 03-23-2024 Basophils (Bld) [#/Vol] 0.06 10*3/uL Normal <0.11 [facility] Comment on above: Order Comment: Speci men Type: BLOOD SPECIMENOrdering Facility: [facility] Address: [address] [place] [address] Performed By: #### 5 7021-8 ####[facility] LABCLIA [id number] [place] [address] Basophils/100 WBC (Bld) 0.5 % Normal [facility] Comment on above: Order Comment: Speci men Type: BLOOD SPECIMENOrdering Facility: [facility] Address: [address] [place] [address] Performed By: #### 5 7021-8 ####[facility] LABCLIA [id number] [place] [address] Differential cell count method Nom (Bld) Auto Normal [facility] Comment on above: Order Comment: Speci men Type: BLOOD SPECIMENOrdering Facility: [facility] Address: [address] [place] [address] Performed By: #### 5 7021-8 ####[facility] LABCLIA [id number] [place] [address] Eosinophils (Bld) [#/Vol] 0.13 10*3/uL Normal <0.46 [facility] Comment on above: Order Comment: Speci men Type: BLOOD SPECIMENOrdering Facility: [facility] Address: [address] [place] [address] Performed By: #### 5 7021-8 ####[facility] LABCLIA [id number] [place] [address] Eosinophils/100 WBC (Bld) 1.0 % Normal [facility] Comment on above: Order Comment: Speci men Type: BLOOD SPECIMENOrdering Facility: [facility] Address: [address] [place] [address] Performed By: #### 5 7021-8 ####[facility] LABCLIA [id number] [place] [address] Erythrocyte distribution width (RBC) [Ratio] 15.2 % High 11.5-15.0 [facility] Comment on above: Order Comment: Speci men Type: BLOOD SPECIMENOrdering Facility: [facility] Address: [address] [place] [address] Performed By: #### 5 7021-8 ####[facility] LABCLIA [id number] [place] [address] Hematocrit (Bld) [Volume fraction] 39.3 % Normal 36.0-46.0 [facility] Comment on above: Order Comment: Speci men Type: BLOOD SPECIMENOrdering Facility: [facility] Address: [address] [place] [address] Performed By: #### 5 7021-8 ####[facility] LABCLIA [id number] [place] [address] Hemoglobin (Bld) [Mass/Vol] 13.1 g/dL Normal 11.5-15.5 [facility] Comment on above: Order Comment: Speci men Type: BLOOD SPECIMENOrdering Facility: [facility] Address: [address] [place] [address] Performed By: #### 5 7021-8 ####[facility] LABIA [id number] [place] [address] Immature granulocytes (Bld) [#/Vol] 0.12 10*3/uL High <0.10 [facility] Comment on above: Order Comment: Speci men Type: BLOOD SPECIMENOrdering Facility: [facility] Address: [address] [place] [address] Performed By: #### 5 7021-8 ####[facility] LABCLIA [id number] [place] [address] Immature granulocytes/100 WBC (Bld) 0.9 % Normal [facility] Comment on above: Order Comment: Speci men Type: BLOOD SPECIMENOrdering Facility: [facility] Address: [address] [place] [address] Performed By: #### 5 7021-8 ####[facility] LABCLIA [id number] [place] [address] Lymphocytes (Bld) [#/Vol] 2.03 10*3/uL Normal 1.00-4.00 [facility] Comment on above: Order Comment: Speci men Type: BLOOD SPECIMENOrdering Facility: [facility] Address: [address] [place] [address] Performed By: #### 5 7021-8 ####[facility] LABCLIA [id number] [place] [address] Lymphocytes/100 WBC (Bld) 15.7 % Normal [facility] Comment on above: Order Comment: Speci men Type: BLOOD SPECIMENOrdering Facility: [facility] Address: [address] [place] [address] Performed By: #### 5 7021-8 ####[facility] LABCLIA [id number] [place] [address] MCH (RBC) [Entitic mass] 31.3 pg Normal 26.0-34.0 [facility] Comment on above: Order Comment: Speci men Type: BLOOD SPECIMENOrdering Facility: [facility] Address: [address] [place] [address] Performed By: #### 5 7021-8 ####[facility] LABCLIA [id number] [place] [address] MCHC (RBC) [Mass/Vol] 33.3 g/dL Normal 30.5-36.0 [facility] Comment on above: Order Comment: Speci men Type: BLOOD SPECIMENOrdering Facility: [facility] Address: [address] [place] [address] Performed By: #### 5 7021-8 ####[facility] LABIA [id number] [place] [address] MCV (RBC) [Entitic vol] 93.8 fL Normal 80.0-100.0 [facility] Comment on above: Order Comment: Speci men Type: BLOOD SPECIMENOrdering Facility: [facility] Address: [address] [place] [address] Performed By: #### 5 7021-8 ####[facility] LABCLIA [id number] [place] [address] Monocytes (Bld) [#/Vol] 0.65 10*3/uL Normal <0.87 [facility] Comment on above: Order Comment: Speci men Type: BLOOD SPECIMENOrdering Facility: [facility] Address: [address] [place] [address] Performed By: #### 5 7021-8 ####[facility] LABCLIA [id number] [place] [address] Monocytes/100 WBC (Bld) 5.0 % Normal [facility] Comment on above: Order Comment: Speci men Type: BLOOD SPECIMENOrdering Facility: [facility] Address: [address] [place] [address] Performed By: #### 5 7021-8 ####[facility] LABCLIA [id number] [place] [address] Neutrophils (Bld) [#/Vol] 9.90 10*3/uL High 1.45-7.50 [facility] Comment on above: Order Comment: Speci men Type: BLOOD SPECIMENOrdering Facility: [facility] Address: [address] [place] [address] Performed By: #### 5 7021-8 ####[facility] LABCLIA [id number] [place] [address] Neutrophils/100 WBC (Bld) 76.9 % Normal [facility] Comment on above: Order Comment: Speci men Type: BLOOD SPECIMENOrdering Facility: [facility] Address: [address] [place] [address] Performed By: #### 5 7021-8 ####[facility] LABCLIA [id number] [place] [address] Nucleated RBC (Bld) [#/Vol] 10*3/uL Normal <0.01 [facility] Comment on above: Order Comment: Speci men Type: BLOOD SPECIMENOrdering Facility: [facility] Address: [address] [place] [address] Performed By: #### 5 7021-8 ####[facility] LABCLIA [id number] [place] [address] Nucleated RBC/100 WBC (Bld) [Ratio] 0.0 /100 WBC Normal [facility] Comment on above: Order Comment: Speci men Type: BLOOD SPECIMENOrdering Facility: [facility] Address: [address] [place] [address] Performed By: #### 5 7021-8 ####[facility] LABCLIA [id number] [place] [address] Platelet mean volume (Bld) [Entitic vol] 10.0 fL Normal 9.0-12.7 [facility] Comment on above: Order Comment: Speci men Type: BLOOD SPECIMENOrdering Facility: [facility] Address: [address] [place] [address] Performed By: #### 5 7021-8 ####[facility] LABCLIA [id number] [place] [address] Platelets (Bld) [#/Vol] 262 10*3/uL Normal 150-400 [facility] Comment on above: Order Comment: Speci men Type: BLOOD SPECIMENOrdering Facility: [facility] Address: [address] [place] [address] Performed By: #### 5 7021-8 ####[facility] LABCLIA [id number] [place] [address] RBC (Bld) [#/Vol] 4.19 10*6/uL Normal 3.90-5.20 [facility] Comment on above: Order Comment: Speci men Type: BLOOD SPECIMENOrdering Facility: [facility] Address: [address] [place], [place] [address] Performed By: #### 5 7021-8 ####[facility] LABCLIA [id number] [place] [address] WBC (Bld) [#/Vol] 12.89 10*3/uL High 3.70-11.00 [facility] Comment on above: Order Comment: Speci men Type: BLOOD SPECIMENOrdering Facility: [facility] Address: [address] [place] [address] Performed By: #### 5 7021-8 ####[facility] LABCLIA [id number] [place] [address] CNNURSEon 03-23-2024 CNNURSE Normal [facility] CRP SerPl-mCncon 03-23-2024 CRP [Mass/Vol] 0.3 mg/dL Normal <0.9 [facility] Comment on above: Order Comment: Speci men Type: BLOOD SPECIMENOrdering Facility: [facility] Address: [address] [place] [address] Performed By: #### 5 0190-8, 227-4, 1987-09 ####[facility] LABCLIA [id number] [place] [id number] [place] Comprehensive metabolic 2000 panelon 03-23-2024 Albumin [Mass/Vol] 3.9 g/dL Normal 3.9-4.9 [facility] Comment on above: Order Comment: Speci men Type: BLOOD SPECIMENOrdering Facility: [facility] Address: [address] [place] [address] Performed By: #### 2 4323-8 ####[facility] LABCLIA [id number] [place] [address] [place] ALP [Catalytic activity/Vol] 70 U/L Normal 34-123 [facility] Comment on above: Order Comment: Speci men Type: BLOOD SPECIMENOrdering Facility: [facility] Address: [address] [place] [address] Performed By: #### 2 4323-8 ####[facility] LABCLIA [id number] [place] [address] [place] ALT [Catalytic activity/Vol] 27 U/L Normal 7-38 [facility] Comment on above: Order Comment: Speci men Type: BLOOD SPECIMENOrdering Facility: [facility] Address: [address] [place] [address] Performed By: #### 2 4323-8 ####[facility] LABCLIA [id number] [place] [address] [place] Anion gap [Moles/Vol] 15 mmol/L Normal 8-15 [facility] Comment on above: Order Comment: Speci men Type: BLOOD SPECIMENOrdering Facility: [facility] Address: [address] [place] [address] Performed By: #### 2 4323-8 ####[facility] LABCLIA [id number] [place] [address] [place] AST [Catalytic activity/Vol] 20 U/L Normal 13-35 [facility] Comment on above: Order Comment: Speci men Type: BLOOD SPECIMENOrdering Facility: [facility] Address: [address] [place], [place] [address] Performed By: #### 2 4323-8 ####[facility] LABCLIA [id number] [place] [address] [place] Bilirubin [Mass/Vol] mg/dL Low 0.2-1.3 [facility] Comment on above: Order Comment: Speci men Type: BLOOD SPECIMENOrdering Facility: [facility] Address: [address] [place], [place] [address] Performed By: #### 2 4323-8 ####[facility] LABCLIA [id number] [address] [address] [place] Calcium [Mass/Vol] 9.2 mg/dL Normal 8.5-10.2 [facility] Comment on above: Order Comment: Speci men Type: BLOOD SPECIMENOrdering Facility: [facility] Address: [address] [place] [address] Performed By: #### 2 4323-8 ####[facility] LABCLIA [id number] [place] [address] [place] Chloride [Moles/Vol] 104 mmol/L Normal 98-107 [facility] Comment on above: Order Comment: Speci men Type: BLOOD SPECIMENOrdering Facility: [facility] Address: [address] [place] [address] Performed By: #### 2 4323-8 ####[facility] LABCLIA [id number] [place] [address] [place] CO2 [Moles/Vol] 20 mmol/L Low 22-30 [facility] Comment on above: Order Comment: Speci men Type: BLOOD SPECIMENOrdering Facility: [facility] Address: [address] [place] [address] Performed By: #### 2 4323-8 ####[facility] LABCLIA [id number] [place] [address] [place] Creatinine [Mass/Vol] 0.61 mg/dL Normal 0.58-0.96 [facility] Comment on above: Order Comment: Speci men Type: BLOOD SPECIMENOrdering Facility: [facility] Address: [address] [place] [address] Performed By: #### 2 4323-8 ####[facility] LABCLIA [id number] [place] [address] [place] Creatinine and Glomerular filtration rate.predicted panel (S/P/Bld) 114 mL/min/1.73m??? Normal >=60 [facility] Comment on above: Order Comment: Speci men Type: BLOOD SPECIMENOrdering Facility: [facility] Address: [address] [place] [address] Result Comment: Erin mated Glomerular Filtration Rate [...] actual GFR. Performed By: #### 2 4323-8 ####[facility] LABCLIA [id number] [place] [address] [place] Glucose [Mass/Vol] 152 mg/dL High 74-99 [facility] Comment on above: Order Comment: Semaj cortés Type: BLOOD SPECIMENOrdering Facility: [facility] Address: [address] [place] [address] Result Comment: The [place] [employer] (ADA) [...] 2016.39(Suppl 1). Performed By: #### 2 4323-8 ####[facility] LABCLIA [id number] [place] [id number] [place] Potassium [Moles/Vol] 4.3 mmol/L Normal 3.7-5.1 [facility] Comment on above: Order Comment: Semaj cortés Type: BLOOD SPECIMENOrdering Facility: [facility] Address: [address] [place] [address] Performed By: #### 2 4323-8 ####[facility] LABCLIA [id number] [address] [address] [place] Protein [Mass/Vol] 6.6 g/dL Normal 6.3-8.0 [facility] Comment on above: Order Comment: Speci men Type: BLOOD SPECIMENOrdering Facility: [facility] Address: [address] [place] [address] Performed By: #### 2 4323-8 ####[facility] LABCLIA [id number] [place] [address] [place] Sodium [Moles/Vol] 139 mmol/L Normal 136-144 [facility] Comment on above: Order Comment: Speci men Type: BLOOD SPECIMENOrdering Facility: [facility] Address: [address] [place] [address] Performed By: #### 2 4323-8 ####[facility] LABCLIA [id number] [place] [address] [place] Urea nitrogen [Mass/Vol] 20 mg/dL Normal 7-21 [facility] Comment on above: Order Comment: Speci men Type: BLOOD SPECIMENOrdering Facility: [facility] Address: [address] [place] [address] Performed By: #### 2 4323-8 ####[facility] LABCLIA [id number] [place] [address] [place] ESR Westergren method (Bld) [Velocity]on 03-23-2024 ESR (Bld) [Velocity] 27 mm/h High 0-20 [facility] Comment on above: Order Comment: Speci men Type: BLOOD SPECIMENOrdering Facility: [facility] Address: [address] [place] [address] Performed By: #### 4 537-7 ####[facility] LABCLIA [id number] [place] [address] [place] Ferritin SerPl-mCncon 2023 Ferritin [Mass/Vol] 33.3 ng/mL Normal 14.7-205.1 [facility] Comment on above: Order Comment: Speci men Type: BLOOD SPECIMENOrdering Facility: [facility] Address: [address] [place] [address] Performed By: #### 5 0190-8, 2276-4, 1987-09 ####[facility] LABCLIA [id number] [place] [address] [place] Folate SerPl-mCncon 03-23-20 24 Folate [Mass/Vol] 13.0 ng/mL Normal >4.7 [facility] Comment on above: Order Comment: Speci men Type: BLOOD SPECIMENOrdering Facility: [facility] Address: [address] [place] [address] Performed By: #### 2 132-9, 2284-8 ####[facility] LABCLIA [id number] [place] [address] [place] HCG ( test) Ql (U)o n 03-23-2024 Interpretation and review of laboratory results Normal [facility] Preg Test, Ur Negative Negative [facility] IMMUNOGLOBULINS,IGG,IGA,IGMo n 03-23-2024 IgA [Mass/Vol] 171 mg/dL Normal 70-400 [facility] Comment on above: Order Comment: Speci men Type: BLOOD SPECIMENOrdering Facility: [facility] Address: [address] [place] [address] Performed By: #### S ERIMM ####[facility] LABCLIA [id number] [place] [address] [place] IgG [Mass/Vol] 476 mg/dL Low 700-1600 [facility] Comment on above: Order Comment: Speci men Type: BLOOD SPECIMENOrdering Facility: [facility] Address: [address] [place] [address] Performed By: #### S ERIMM ####[facility] LABCLIA [id number] [place] [address] [place] IgM [Mass/Vol] 373 mg/dL High 40-230 [facility] Comment on above: Order Comment: Speci men Type: BLOOD SPECIMENOrdering Facility: [facility] Address: [address] [place] [address] Performed By: #### S DANIEL ####[facility] LABCLIA [id number] [address] [address] [place] Iron and Iron binding capaci ty panelon 03-23-2024 Iron [Mass/Vol] 67 ug/dL Normal 41-186 [facility] Comment on above: Order Comment: Speci men Type: BLOOD SPECIMENOrdering Facility: [facility] Address: [address] [place] [address] Performed By: #### 5 0190-8, 2275-08, 1987-09 ####[facility] LABCLIA [id number] [place] [address] [place] Iron binding capacity [Mass/Vol] 399 ug/dL High 232-386 [facility] Comment on above: Order Comment: Speci men Type: BLOOD SPECIMENOrdering Facility: [facility] Address: [address] [place] [address] Performed By: #### 5 0190-8, 2275-08, 1987-09 ####[facility] LABCLIA [id number] [place] [address] [place] Iron/TIBC [Molar ratio] 16.8 % Normal 15.0-57.0 [facility] Comment on above: Order Comment: Speci men Type: BLOOD SPECIMENOrdering Facility: [facility] Address: [address] [place], [place] [address] Performed By: #### 5 0190-8, 2275-08, 1987-09 ####[facility] LABCLIA [id number] [place] [address] [place] Urinalysis macro (dipstick) panel (U)on 03-23-2024 Bilirubin, UA Negative Negative - 4(70) +++ mg/dL [facility] Blood, UA Positive Negative - 50 Dusty/mcL [facility] Comment on above: large Clarity, UA Cloudy [facility] Color, UA Dark Georgie [facility] Glucose, UA Positive Negative - 1999(110) ++++ mg/dL [facility] Comment on above: 100 mg Interpretation and review of laboratory results Abnormal [facility] Ketones, UA Negative Negative - 160(16) ++++ mg/dL [facility] Leukocytes, UA Positive Negative - 500+++ Andi/mcL [facility] Comment on above: small Nitrite, UA Negative Negative - Positive [facility] pH, UA 5.5 5 - 9 [facility] Protein, UA Positive Negative - 1999(20) ++++ mg/dL [facility] Comment on above: 30 mg Spec Grav, UA 1.03 1 - 1.03 [facility] Urobilinogen, UA 0.2 0.2 - 12 mg/dL [facility] Vit B12 [facility] 024 Cobalamin (Vitamin B12) [Mass/Vol] 607 pg/mL Normal 232-1245 [facility] Comment on above: Order Comment: Speci men Type: BLOOD SPECIMENOrdering Facility: [facility] Address: [address] [place] [address] Performed By: #### 2 132-9, 2284-8 ####[facility] LABCLIA [id number] [place] [address] [place] Office Visiton 03-08-2024 Follow-up visit [id number] Ariadna Haley 1980 F Date Provider Department Center 03/08/2024 Renny-CALOS MENDOZA Family History Problem Relation Age of Onset Heart failure Maternal Grandmother Heart attack Maternal Grandfather Family Status - Relation Status Age at Maternal Grandmother Maternal Grandfather Level of Service:21613 [place] OFFICE/OUTPATIENT NEW MODERATE MDM 45 MINUTES Normal [facility] HCG ( test) Marcelo varela Ql (U)Ordered By: Adolfo Kang on 02-16-2024 HCG ( test) Ql (U) Negative [facility] ECG 12 Leadon 07-13-2023 ECG revealed normal sinus rhythm [facility] Work Phone: CBC AUTO DIFFon 09-24-2022 BASO # 0.1 103/ul Normal 0.0-0.1 [facility] Comment on above: Performed By: #### U AMIC #### [facility] [address] [place] [address] [address] Manda York Basophils/100 WBC (Bld) 0.6 % Normal 0.2-2.0 [facility] Comment on above: Performed By: #### U AMIC #### [facility] [address] [place] [address] [address] Manda York EO # 0.1 103/ul Normal 0.0-0.7 [facility] Comment on above: Performed By: #### U AMIC #### [facility] [address] [place] [address] [address] Manda York Eosinophils/100 WBC (Bld) 0.6 % Critically low 0.9-7.0 [facility] Comment on above: Performed By: #### U AMIC #### [facility] [address] [place] [address] [address] Manda York Erythrocyte distribution width (RBC) [Ratio] 14.6 % Normal 11.0-15.0 [facility] Comment on above: Performed By: #### U AMIC #### [facility] [address] [place] [address] [address] Manda York Hematocrit (Bld) [Volume fraction] 43.4 % Normal 36.0-48.0 [facility] Comment on above: Performed By: #### U AMIC #### [facility] [address] [place] [address] [address] Manda York Hemoglobin (Bld) [Mass/Vol] 13.7 g/dL Normal 12.0-16.0 [facility] Comment on above: Performed By: #### U AMIC #### [facility] [address] [place] [address] [address] Manda York IG # 0.12 10e3/ul Critically high 0.00-0.03 [facility] Comment on above: Performed By: #### U AMIC #### [facility] [address] [place] [address] [address] Manda York IG % 0.8 % Critically high 0.0-0.5 [facility] Comment on above: Performed By: #### U AMIC #### [facility] [address] [place] [address] [address] Manda York LYMPH # 2.6 103/ul Normal 1.2-3.8 [facility] Comment on above: Performed By: #### U AMIC #### [facility] [address] [place] [address] [address] Manda York Lymphocytes/100 WBC (Bld) 18.3 % Critically low 20.5-60.0 [facility] Comment on above: Performed By: #### U AMIC #### [facility] [address] [place] [address] [address] Manda York MANUAL DIFF REQ NO Normal [facility] Comment on above: Performed By: #### U AMIC #### [facility] [address] [place] [address] [address] Manda York MCH (RBC) [Entitic mass] 29.0 pg Normal 26.7-34.0 [facility] Comment on above: Performed By: #### U AMIC #### [facility] [address] [place] [address] [address] Manda York MCHC (RBC) [Mass/Vol] 31.6 g/dL Normal 29.9-35.2 [facility] Comment on above: Performed By: #### U AMIC #### [facility] [address] [place] [address] [address] Manda York MCV (RBC) [Entitic vol] 91.8 fL Normal 81.0-99.0 [facility] Comment on above: Performed By: #### U AMIC #### [facility] [address] [place] [address] [address] Manda York MONO # 0.7 103/ul Normal 0.3-0.8 [facility] Comment on above: Performed By: #### U AMIC #### [facility] [address] [place] [address] [address] Manda York Monocytes/100 WBC (Bld) 5.1 % Normal 1.7-12.0 [facility] Comment on above: Performed By: #### U AMIC #### [facility] [address] [place] [address] [address] Manda York NEUT # 10.6 103/ul Critically high 1.4-6.5 [facility] Comment on above: Performed By: #### U AMIC #### [facility] [address] [place] [address] [address] Manda York Neutrophils/100 WBC (Bld) 74.6 % Normal 43.0-75.0 [facility] Comment on above: Performed By: #### U AMIC #### [facility] [address] [place] [address] [address] Manda York Platelet mean volume (Bld) [Entitic vol] 9.4 fL Critically low 9.5-13.5 [facility] Comment on above: Performed By: #### U AMIC #### [facility] [address] [place] [address] [address] Manda York PLT 307 103/ul Normal 150-450 [facility] Comment on above: Performed By: #### U AMIC #### [facility] [address] [place] [address] [address] Manda York RBC 4.73 106/ul Normal 4.20-5.40 [facility] Comment on above: Performed By: #### U AMIC #### [facility] [address] [place] [address] [address] Manda York WBC 14.2 103/ul Critically high 4.0-11.0 [facility] Comment on above: Performed By: #### U AMIC #### [facility] [address] [place] [address] [address] Manda York FREE T4on 09-24-2022 Free T4 [Mass/Vol] 1.31 ng/dL Normal 0.76-1.46 [facility] Comment on above: Performed By: #### F T4 #### [facility] [address] [place] [address] Dr. Manda York GLYCOHEMOGLOBIN A1Con 2022 ADA RECOMMENDATION SEE BELOW Normal [facility] Comment on above: Result Comment: ADA RECOMMENDED LIMIT 4.0 - 6.0 ADA THERAPEUTIC TARGET < 7.0 ACTION SUGGESTED > 7.0 Performed By: #### A 1C #### [facility] [address] [place] [address] Dr. Manda York Glucose [Mass/Vol] 120 mg/dL Normal [facility] Comment on above: Performed By: #### A 1C #### [facility] [address] [place] [address] Dr. Manda York HbA1c (Bld) [Mass fraction] 5.8 % Normal 4.5-6.2 [facility] Comment on above: Performed By: #### A 1C #### [facility] [address] [place] [address] Dr. Manda York PREG QUANT HCGon 09-24-2022 HCG QUANT <1 Normal [facility] Comment on above: Performed By: #### F T4 #### [facility] [address] [place] [address] Dr. Manda York HCG RANGE SEE BELOW Normal [facility] Comment on above: Result Comment: 5-50 0.2-1 WEEK 50-500 1-2 WEEKS 100-5,000 2-3 WEEKS 500-10,000 3-4 WEEKS 1,000-50,000 4-5 WEEKS 10,000-100,000 5-6 WEEKS 15,000-200,000 6-8 WEEKS 10,000-100,000 2-3 MONTHS Performed By: #### F T4 #### [facility] [address] [place] [address] Dr. Manda York PROTIMEon 09-24-2022 INR Coag (PPP) [Relative time] {INR} Normal [facility] Comment on above: Performed By: #### F T4 #### [facility] [address] [place] [address] Dr. Manda York INR GUIDELINES SEE BELOW Normal [facility] Comment on above: Result Comment: SHERRY RED INR: 2.0 - 3.0 CONDITIONS NOT LISTED BELOW 2.5 - 3.5 FOR PROSTHETIC HEART VALVE REPLACEMENT 2.5 - 3.5 RECURRENT THROMBOSIS Performed By: #### F T4 #### [facility] [address] [place] [address] [address] Manda York PT Coag (PPP) [Time] 9.6 s Normal 9.0-11.6 [facility] Comment on above: Performed By: #### F T4 #### [facility] [address] [place] [address] [address] Manda York PTTon 09-24-2022 aPTT Coag (Bld) [Time] 28.2 s Normal 22.3-36.2 [facility] Comment on above: Performed By: #### F T4 #### [facility] [address] [place] [address] [address] Manda York TSHon 09-24-2022 TSH 0.300 uIU/mL Critically low 0.358-3.740 [facility] Comment on above: Performed By: #### F T4 #### [facility] [address] [place] [address] [address] Manda York US PELVIS TRANSVAGon 023 [...] by: AURORA SHAIKH Date: 2022-09-24 17:50 Normal [facility] PAP ACOG PANEL 2: 30 to 65on 09-18-2022 . . Normal [facility] Comment on above: Result Comment: Perf ormed at: WB Performed By: #### F T4 #### [facility] [address] [place] [address] Dr. Manda York Age Gdln ACOG Testing 30-65 Normal [facility] Comment on above: Performed By: #### F T4 #### [facility] [address] [place] [address] [address] Manda York DIAGNOSIS: Comment Normal [facility] Comment on above: Result Comment: NEGA TIVE FOR INTRAEPITHELIAL LESION OR MALIGNANCY. Performed at: WB Performed By: #### F T4 #### [facility] [address] [place] [address] Dr. Manda York HPV Aptima Negative Normal Negative [facility] Comment on above: Result Comment: This nucleic acid amplification test detects fourteen high-risk HPV types (16,18,31,33,35,39,45,51,52,56,58,59,66,68) without differentiation. Performed at: =G Performed By: #### F T4 #### [facility] [address] [place] [address] [address] Manda York HPV Genotype Reflex Comment Normal [facility] Comment on above: Result Comment: Crit eria not met, HPV Genotype not performed. Performed at: WB Performed By: #### F T4 #### [facility] [address] [place] [address] Dr. Manda York Methodology: Comment Normal [facility] Comment on above: Result Comment: This liquid based ThinPrep(R) pap test was screened with the use of an image guided system. Performed at: WB Performed By: #### F T4 #### [facility] [address] [place] [address] Dr. Manda York Note: Comment Normal [facility] Comment on above: Result Comment: The [...] Performed By: #### F T4 #### [facility] [address] [place], [place] [address] Dr. Manda York Performed by: Comment Normal [facility] Comment on above: Result Comment: Lorena Peters, Coloring Machine Operator (ASCP) Performed at: WB Performed By: #### F T4 #### [facility] [address] [place], [place] [address] Dr. Manda York Specimen adequacy: Comment Normal [facility] Comment on above: Result Comment: Sati sfactory for evaluation. Endocervical and/or squamous metaplastic cells (endocervical component) are present. Performed at: WB Performed By: #### F T4 #### [facility] [address] [place] [address] [address] Manda York Cytology Cervical or vaginal smear or scraping studyOrdered By: Hazel Torres on 09-10-2022 [facility] MG MAMM SCREEN 3D SELENE CADon 09-01-2022 MG MAMM SCREEN 3D SELENE CAD Patient: ARIADNA HALEY Exam Date: 09/01/2022 : 1980 Gender:F Ordering : DR MANUEL FERRIS . Admission #: [id number] Family : Order #: [id number] CLICK HERE TO VIEW EXAM RADIOLOGY REPORT [...] cancer at age 56. LOCATION: [facility] BREAST COMPOSITION: Scattered areas fibroglandular density. FINDINGS: [...] Yusuf M.D. on 09/02/2022 at 12:32 Normal [facility] MRI KNEE RT WO CONon 022 [...] by: MANUEL GOMEZ Date: 2022-04-01 08:24 Normal [facility] PNEUMOCOCCAL IGG ABS, 23 SER OTYPESon 03-21-2022 Pneumococcal Interpretation See Note [facility] S. pneumoniae 1 IgG (S) [Mass/Vol] 0.27 ug/mL [facility] S. pneumoniae 12 IgG (S) [Mass/Vol] 0.08 ug/mL [facility] S. pneumoniae 14 IgG (S) [Mass/Vol] 0.19 ug/mL [facility] S. pneumoniae 17 IgG (S) [Mass/Vol] 1.72 ug/mL [facility] S. pneumoniae 19 IgG (S) [Mass/Vol] 1.52 ug/mL [facility] S. pneumoniae 2 IgG (S) [Mass/Vol] 0.44 ug/mL [facility] S. pneumoniae 20 IgG (S) [Mass/Vol] 1.53 ug/mL [facility] S. pneumoniae 22 IgG (S) [Mass/Vol] 0.99 ug/mL [facility] S. pneumoniae 23 IgG (S) [Mass/Vol] 0.14 ug/mL [facility] S. pneumoniae 3 IgG (S) [Mass/Vol] 0.36 ug/mL [facility] S. pneumoniae 34 IgG (S) [Mass/Vol] 5.77 ug/mL [facility] S. pneumoniae 4 IgG (S) [Mass/Vol] 0.06 ug/mL [facility] S. pneumoniae 43 IgG (S) [Mass/Vol] 0.93 ug/mL [facility] S. pneumoniae 5 IgG (S) [Mass/Vol] 0.89 ug/mL [facility] S. pneumoniae 8 IgG (S) [Mass/Vol] 0.58 ug/mL [facility] S. pneumoniae 9 IgG (S) [Mass/Vol] 0.4 ug/mL [facility] S. pneumoniae Maldivian type 15B IgG (S) [Mass/Vol] 8.27 ug/mL [facility] S. pneumoniae Maldivian type 18C IgG (S) [Mass/Vol] 0.39 ug/mL [facility] S. pneumoniae Maldivian type 19A IgG (S) [Mass/Vol] 17.72 ug/mL [facility] S. pneumoniae Maldivian type 33F IgG (S) [Mass/Vol] 3.04 ug/mL [facility] S. pneumoniae Maldivian type 6B IgG (S) [Mass/Vol] 0.82 ug/mL [facility] S. pneumoniae Maldivian type 7F IgG (S) [Mass/Vol] 0.34 ug/mL [facility] S. pneumoniae Maldivian type 9V IgG (S) [Mass/Vol] 0.78 ug/mL [facility] XR KNEE RT 4V or [...] by: KRISTINA GARRETT Date: 2022-03-21 16:47 Normal [facility] DIPHTHER/TETANUS ABon 2021 C. diphtheriae IgG Qn (S) 0.1 IU/mL [facility] C. tetani toxoid IgG IA Qn 1 IU/mL [facility] IGA BLDon 03-18-2022 IgA [Mass/Vol] 182 mg/dL 70 - 400 mg/dL [facility] IGE BLDon 03-18-2022 IgE Qn 12.3 kU/l <114.0 kU/l [facility] IGGon 03-18-2022 IgG [Mass/Vol] 618 mg/dL Low 700 - 1,600 mg/dL [facility] IGMon 03-18-2022 IgM [Mass/Vol] 514 mg/dL High 40 - 230 mg/dL [facility] Immunodeficiency panel FC (B ld)on 03-18-2022 CD3 cells (Bld) [#/Vol] 2841 cells/uL High 958 - 2,388 cells/uL [facility] CD3 cells/100 cells (Bld) 81 % 60 - 89 % [facility] CD3+CD4+ (T4 helper) cells (Bld) [#/Vol] 1621 cells/uL 533 - 1,674 cells/uL [facility] CD3+CD4+ (T4 helper) cells/100 cells (Bld) 46 % 34 - 61 % [facility] CD3+CD4+ (T4 helper) cells/CD3+CD8+ (T8 suppressor cells) cells (Bld) [# ratio] 1.55 % 1.10 - 3.25 [facility] CD3+CD8+ (T8 suppressor cells) cells (Bld) [#/Vol] 1049 cells/uL High 175 - 958 cells/uL [facility] CD3+CD8+ (T8 suppressor cells) cells/100 cells (Bld) 30 % 10 - 41 % [facility] CD3-CD16+CD56+ (Natural killer) cells (Bld) [#/Vol] 193 cells/uL 102 - 565 cells/uL [facility] CD3-CD16+CD56+ (Natural killer) cells/100 cells (Bld) 5 % 5 - 25 % [facility] CD3-CD19+ cells (Bld) [#/Vol] 475 cells/uL 75 - 660 cells/uL [facility] CD3-CD19+ cells/100 cells (Bld) 13 % 5 - 22 % [facility] CBC W Auto Differential pane l (Bld)on 03-17-2022 Basophils (Bld) [#/Vol] 0.07 10*3/uL <0.11 k/uL [facility] Basophils/100 WBC (Bld) 0.6 % [facility] Differential cell count method Nom (Bld) Auto [facility] Eosinophils (Bld) [#/Vol] 0.18 10*3/uL <0.46 k/uL [facility] Eosinophils/100 WBC (Bld) 1.6 % [facility] Erythrocyte distribution width (RBC) [Ratio] 14.6 % 11.5 - 15.0 % [facility] Hematocrit (Bld) [Volume fraction] 40.5 % 36.0 - 46.0 % [facility] Hemoglobin (Bld) [Mass/Vol] 13.0 g/dL 11.5 - 15.5 g/dL [facility] Immature granulocytes (Bld) [#/Vol] 0.06 10*3/uL <0.10 k/uL [facility] Immature granulocytes/100 WBC (Bld) 0.5 % [facility] Lymphocytes (Bld) [#/Vol] 2.97 10*3/uL 1.00 - 4.00 k/uL [facility] Lymphocytes/100 WBC (Bld) 26.9 % [facility] MCH (RBC) [Entitic mass] 28.4 pg 26.0 - 34.0 pg [facility] MCHC (RBC) [Mass/Vol] 32.1 g/dL 30.5 - 36.0 g/dL [facility] MCV (RBC) [Entitic vol] 88.4 fL 80.0 - 100.0 fL [facility] Monocytes (Bld) [#/Vol] 0.79 10*3/uL <0.87 k/uL [facility] Monocytes/100 WBC (Bld) 7.2 % [facility] Neutrophils (Bld) [#/Vol] 6.97 10*3/uL 1.45 - 7.50 k/uL [facility] Neutrophils/100 WBC (Bld) 63.2 % [facility] Nucleated RBC (Bld) [#/Vol] <0.01 k/uL [facility] Nucleated RBC/100 WBC (Bld) [Ratio] 0.0 /100 WBC [facility] Platelet mean volume (Bld) [Entitic vol] 9.9 fL 9.0 - 12.7 fL [facility] Platelets (Bld) [#/Vol] 314 10*3/uL 150 - 400 k/uL [facility] RBC (Bld) [#/Vol] 4.58 10*6/uL 3.90 - 5.2 0 m/uL [facility] WBC (Bld) [#/Vol] 11.04 10*3/uL High 3.70 - 11 .00 k/uL [facility] ECHOCARDIO M/2D COMPLETEon 1 ECHOCARDIO M/2D COMPLETE Patient: ARIADNA HALEY Exam Date: 03/12/2022 : 1980 Gender:F Ordering : DR MANUEL FERRIS . Admission #: [id number] Family : Order #: [id number] CLICK HERE TO VIEW EXAM ECHOCARDIOGRAM REPORT [...] on 03/16/2022 at 16:47 Normal [facility] INSULINon 03-11-2022 Insulin 17.8 uIU/mL Normal 2.6-24.9 [facility] Comment on above: Performed By: #### C BC #### [facility] [address] [place] [address] Dr. Manda York CBC AUTO DIFFon 03-09-2022 BASO # 0.1 103/ul Normal 0.0-0.1 [facility] Comment on above: Performed By: #### C BC #### [facility] [address] [place] [address] Dr. Manda York Basophils/100 WBC (Bld) 0.4 % Normal 0.2-2.0 [facility] Comment on above: Performed By: #### C BC #### [facility] [address] [place] [address] Dr. Manda York EO # 0.2 103/ul Normal 0.0-0.7 [facility] Comment on above: Performed By: #### C BC #### [facility] [address] [place] [address] Dr. Manda York Eosinophils/100 WBC (Bld) 1.2 % Normal 0.9-7.0 [facility] Comment on above: Performed By: #### C BC #### [facility] [address] [place] [address] Dr. Manda York Erythrocyte distribution width (RBC) [Ratio] 14.6 % Normal 11.0-15.0 [facility] Comment on above: Performed By: #### C BC #### [facility] [address] [place] [address] Dr. Manda York Hematocrit (Bld) [Volume fraction] 39.2 % Normal 36.0-48.0 [facility] Comment on above: Performed By: #### C BC #### [facility] [address] [place] [address] Dr. Manda York Hemoglobin (Bld) [Mass/Vol] 12.7 g/dL Normal 12.0-16.0 [facility] Comment on above: Performed By: #### C BC #### [facility] [address] [place] [address] Dr. Manda York IG # 0.06 10e3/ul Critically high 0.00-0.03 [facility] Comment on above: Performed By: #### C BC #### [facility] [address] [place] [address] Dr. Manda York IG % 0.5 % Normal 0.0-0.5 [facility] Comment on above: Performed By: #### C BC #### [facility] [address] [place] [address] Dr. Manda York LYMPH # 3.7 103/ul Normal 1.2-3.8 [facility] Comment on above: Performed By: #### C BC #### [facility] [address] [place] [address] Dr. Manda York Lymphocytes/100 WBC (Bld) 31.0 % Normal 20.5-60.0 [facility] Comment on above: Performed By: #### C BC #### [facility] [address] [place] [address] Dr. Manda York MANUAL DIFF REQ NO Normal [facility] Comment on above: Performed By: #### C BC #### [facility] [address] [place] [address] Dr. Manda York MCH (RBC) [Entitic mass] 28.9 pg Normal 26.7-34.0 [facility] Comment on above: Performed By: #### C BC #### [facility] [address] [place] [address] Dr. Manda York MCHC (RBC) [Mass/Vol] 32.4 g/dL Normal 29.9-35.2 [facility] Comment on above: Performed By: #### C BC #### [facility] [address] [place] [address] Dr. Manda York MCV (RBC) [Entitic vol] 89.1 fL Normal 81.0-99.0 [facility] Comment on above: Performed By: #### C BC #### [facility] [address] [place] [address] Dr. Manda York MONO # 0.7 103/ul Normal 0.3-0.8 [facility] Comment on above: Performed By: #### C BC #### [facility] [address] [place] [address] Dr. Manda York Monocytes/100 WBC (Bld) 5.8 % Normal 1.7-12.0 [facility] Comment on above: Performed By: #### C BC #### [facility] [address] [place] [address] Dr. Manda York NEUT # 7.3 103/ul Critically high 1.4-6.5 [facility] Comment on above: Performed By: #### C BC #### [facility] [address] [place] [address] Dr. Manda York Neutrophils/100 WBC (Bld) 61.1 % Normal 43.0-75.0 [facility] Comment on above: Performed By: #### C BC #### [facility] [address] [address] [address] Manda York Platelet mean volume (Bld) [Entitic vol] 9.7 fL Normal 9.5-13.5 [facility] Comment on above: Performed By: #### C BC #### [facility] [address] [address] [address] Manda York PLT 297 103/ul Normal 150-450 [facility] Comment on above: Performed By: #### C BC #### [facility] [address] [address] [address] Manda York RBC 4.40 106/ul Normal 4.20-5.40 [facility] Comment on above: Performed By: #### C BC #### [facility] [address] [place] [address] Dr. Manda York WBC 12.0 103/ul Critically high 4.0-11.0 [facility] Comment on above: Performed By: #### C BC #### [facility] [address] [address] [address] Manda York FREE THYROXINE INDEX T7on FTI 3.81 Normal 1.30-4.50 [facility] Comment on above: Performed By: #### U AMIC #### [facility] [address] [place] [address] Dr. Manda York T3U 34.0 % Normal 30.0-39.0 [facility] Comment on above: Performed By: #### U AMIC #### [facility] [address] [address] [address] Manda York T4 [Mass/Vol] 11.20 ug/dL Normal 4.80-13.90 [facility] Comment on above: Performed By: #### U AMIC #### [facility] [address] [place] [address] Dr. Manda York GLYCOHEMOGLOBIN A1Con 2021 ADA RECOMMENDATION SEE BELOW Normal [facility] Comment on above: Result Comment: ADA RECOMMENDED LIMIT 4.0 - 6.0 ADA THERAPEUTIC TARGET < 7.0 ACTION SUGGESTED > 7.0 Performed By: #### S LUIGI MELO #### [facility] [address] [address] [address] Manda York Glucose [Mass/Vol] 117 mg/dL Normal [facility] Comment on above: Performed By: #### S LEANN MELOC #### [facility] [address] [address] [address] Manda York HbA1c (Bld) [Mass fraction] 5.7 % Normal 4.5-6.2 [facility] Comment on above: Performed By: #### S LUIGI MELO #### [facility] [address] [place] [address] Dr. Manda York IRONon 03-09-2022 Iron [Mass/Vol] 61.0 ug/dL Normal 50.0-170.0 [facility] Comment on above: Performed By: #### C BC #### [facility] [address] [place] [address] Dr. Manda York LIPID PROFILEon 03-09-2022 CHOL-HDL RATIO NORM SEE BELOW Normal [facility] Comment on above: Result Comment: 3.3 - 4.4 LOW RISK 4.4 - 7.1 AVERAGE RISK 7.1 - 11.0 MODERATE RISK >11.0 HIGH RISK Performed By: #### U AMIC #### [facility] [address] [place] [address] Dr. Manda York Cholesterol [Mass/Vol] 260 mg/dL Critically high <=200 [facility] Comment on above: Performed By: #### U AMIC #### [facility] [address] [address] [address] Manda York Cholesterol in HDL [Mass/Vol] 38 mg/dL Critically low 40-60 [facility] Comment on above: Performed By: #### U AMIC #### [facility] [address] [address] [address] Manda York Cholesterol in LDL [Mass/Vol] 170.8 mg/dL Normal [facility] Comment on above: Performed By: #### U AMIC #### [facility] [address] [address] [address] Manda York Cholesterol.total/Chol esterol in HDL [Mass ratio] 6.8 {ratio} Normal [facility] Comment on above: Performed By: #### U AMIC #### [facility] [address] [address] [address] Manda York HDL NORMAL > or = 60 mg/dl - LO W CARDIOVASCULAR RISK <40 mg/dl - HIGH CARDIOVASCULAR RISK Normal [facility] Comment on above: Performed By: #### U AMIC #### [facility] [address] [address] [address] Manda York LDL CALC NORMAL SEE BELOW Normal [facility] Comment on above: Result Comment: <100 mg/dl OPTIMAL 100 - 129 mg/dl NEAR OR ABOVE OPTIMAL 130 - 159 mg/dl BORDERLINE HIGH 160 - 189 mg/dl HIGH >190 mg/dl VERY HIGH Performed By: #### U AMIC #### [facility] [address] [address] [address] Manda York Triglyceride [Mass/Vol] 256 mg/dL Critically high <=150 [facility] Comment on above: Performed By: #### U AMIC #### [facility] [address] [address] [address] Manda York VLDL CALC 51.2 mg/dL Normal [facility] Comment on above: Performed By: #### U AMIC #### [facility] [address] [address] [address] Manda York PROF 14(COMP METB)on 022 Albumin [Mass/Vol] 3.8 g/dL Normal 3.4-5.0 [facility] Comment on above: Performed By: #### U AMIC #### [facility] [address] [address] [address] Manda York Albumin/Globulin [Mass ratio] 1.0 {ratio} Normal [facility] Comment on above: Performed By: #### U AMIC #### [facility] [address] [address] [address] Manda York ALP [Catalytic activity/Vol] 66 U/L Normal 46-116 [facility] Comment on above: Performed By: #### U AMIC #### [facility] [address] [address] [address] Manda York ALT [Catalytic activity/Vol] 27 U/L Normal 14-59 [facility] Comment on above: Performed By: #### U AMIC #### [facility] [address] [address] [address] Manda York Anion gap [Moles/Vol] 11.8 mmol/L Normal [facility] Comment on above: Performed By: #### U AMIC #### [facility] [address] [address] [address] Manda York AST [Catalytic activity/Vol] 9 U/L Critically low 15-37 [facility] Comment on above: Performed By: #### U AMIC #### [facility] [address] [address] [address] Manda York Bilirubin [Mass/Vol] 0.2 mg/dL Normal 0.2-1.0 [facility] Comment on above: Performed By: #### U AMIC #### [facility] [address] [address] [address] Manda York Calcium [Mass/Vol] 9.1 mg/dL Normal 8.5-10.1 [facility] Comment on above: Performed By: #### U AMIC #### [facility] [address] [address] [address] Manda York Chloride [Moles/Vol] 101 mmol/L Normal 98-107 [facility] Comment on above: Performed By: #### U AMIC #### [facility] [address] [address] [address] Manda York CO2 [Moles/Vol] 26.1 mmol/L Normal 21.0-32.0 [facility] Comment on above: Performed By: #### U AMIC #### [facility] [address] [address] [address] Manda York Creatinine [Mass/Vol] 0.80 mg/dL Normal 0.55-1.02 [facility] Comment on above: Performed By: #### U AMIC #### [facility] [address] [address] [address] Manda York EGFR-AF ETHIOPIAN >60 Normal >=60 [facility] Comment on above: Performed By: #### U AMIC #### [facility] [address] [address] [address] Manda York EGFR-NON AF ETHIOPIAN >60 Normal >=60 [facility] Comment on above: Performed By: #### U AMIC #### [facility] [address] [address] [address] Manda York Globulin (S) [Mass/Vol] 3.8 g/dL Normal [facility] Comment on above: Performed By: #### U AMIC #### [facility] [address] [address] [address] Manda York Glucose [Mass/Vol] 93 mg/dL Normal 74-106 [facility] Comment on above: Performed By: #### U AMIC #### [facility] [address] [address] [address] Manda York Potassium [Moles/Vol] 3.9 mmol/L Normal 3.5-5.1 [facility] Comment on above: Performed By: #### U AMIC #### [facility] [address] [address] [address] Manda York Protein [Mass/Vol] 7.6 g/dL Normal 6.4-8.2 [facility] Comment on above: Performed By: #### U AMIC #### [facility] [address] [address] [address] Manda York Sodium [Moles/Vol] 135 mmol/L Critically low 136-145 [facility] Comment on above: Performed By: #### U AMIC #### [facility] [address] [address] [address] Manda York Urea nitrogen [Mass/Vol] 10.0 mg/dL Normal 7.0-18.0 [facility] Comment on above: Performed By: #### U AMIC #### [facility] [address] [address] [address] Manda York Urea nitrogen/Creatinine [Mass ratio] 12.5 mg/mg Normal [facility] Comment on above: Performed By: #### U AMIC #### [facility] [address] [place], [place] [address] Dr. Manda York TSHon 03-09-2022 TSH 0.610 uIU/mL Normal 0.358-3.740 [facility] Comment on above: Performed By: #### U AMIC #### [facility] [address] [address] [address] Manda York B2 MICROGLOBULIN Bon 022 [id number] [Mass/Vol] 1.8 ug/mL 0.8 - 2.4 mg/L [facility] FERRITIN BLDon 03-05-2022 Ferritin [Mass/Vol] 33.2 ng/mL 14.7 - 2 05.1 ng/mL [facility] FOLATE SERUMon 03-05-2022 Folate [Mass/Vol] 6.6 ng/mL >4.7 ng/mL [facility] Iron and Iron binding capaci ty panelon 03-05-2022 Iron [Mass/Vol] 49 ug/dL 41 - 186 ug/dL [facility] Iron binding capacity [Mass/Vol] 392 ug/dL High 232 - 386 ug/dL [facility] Iron/TIBC [Molar ratio] 12.5 % Low 15.0 - 57.0 % [facility] CBC W Auto Differential pane l (Bld)on 03-04-2022 Basophils (Bld) [#/Vol] 0.07 10*3/uL <0.11 k/uL [facility] Basophils/100 WBC (Bld) 0.6 % [facility] Differential cell count method Nom (Bld) Auto [facility] Eosinophils (Bld) [#/Vol] 0.19 10*3/uL <0.46 k/uL [facility] Eosinophils/100 WBC (Bld) 1.7 % [facility] Erythrocyte distribution width (RBC) [Ratio] 14.7 % 11.5 - 15.0 % [facility] Hematocrit (Bld) [Volume fraction] 40.0 % 36.0 - 46.0 % [facility] Hemoglobin (Bld) [Mass/Vol] 13.0 g/dL 11.5 - 15.5 g/dL [facility] Immature granulocytes (Bld) [#/Vol] 0.07 10*3/uL <0.10 k/uL [facility] Immature granulocytes/100 WBC (Bld) 0.6 % [facility] Lymphocytes (Bld) [#/Vol] 3.31 10*3/uL 1.00 - 4.00 k/uL [facility] Lymphocytes/100 WBC (Bld) 30.2 % [facility] MCH (RBC) [Entitic mass] 28.9 pg 26.0 - 34.0 pg [facility] MCHC (RBC) [Mass/Vol] 32.5 g/dL 30.5 - 36.0 g/dL [facility] MCV (RBC) [Entitic vol] 88.9 fL 80.0 - 100.0 fL [facility] Monocytes (Bld) [#/Vol] 0.70 10*3/uL <0.87 k/uL [facility] Monocytes/100 WBC (Bld) 6.4 % [facility] Neutrophils (Bld) [#/Vol] 6.63 10*3/uL 1.45 - 7.50 k/uL [facility] Neutrophils/100 WBC (Bld) 60.5 % [facility] Nucleated RBC (Bld) [#/Vol] <0.01 k/uL [facility] Nucleated RBC/100 WBC (Bld) [Ratio] 0.0 /100 WBC [facility] Platelet mean volume (Bld) [Entitic vol] 9.6 fL 9.0 - 12.7 fL [facility] Platelets (Bld) [#/Vol] 355 10*3/uL 150 - 400 k/uL [facility] RBC (Bld) [#/Vol] 4.50 10*6/uL 3.90 - 5.2 0 m/uL [facility] WBC (Bld) [#/Vol] 10.97 10*3/uL 3.70 - 11 .00 k/uL [facility] Calcium.ionized [Moles/Vol]o n 03-04-2022 Calcium.ionized (Bld) [Mass/Vol] 1.26 mmol/L 1.08 - 1.30 mmol/L [facility] Calcium.ionized adjusted to pH 7.4 (Bld) [Moles/Vol] 1.25 mmol/L 1.08 - 1.30 mmol/L [facility] Comprehensive metabolic 2000 panelon 03-04-2022 Albumin [Mass/Vol] 4.3 g/dL 3.9 - 4.9 g/dL [facility] ALP [Catalytic activity/Vol] 70 U/L 34 - 123 U/L [facility] ALT [Catalytic activity/Vol] 26 U/L 7 - 38 U/L [facility] Anion gap [Moles/Vol] 7 mmol/L Low 9 - 18 mmol/L [facility] AST [Catalytic activity/Vol] 12 U/L Low 13 - 35 U/L [facility] Bilirubin [Mass/Vol] 0.2 mg/dL 0.2 - 1 .3 mg/dL [facility] Calcium [Mass/Vol] 9.3 mg/dL 8.5 - 10. 2 mg/dL [facility] Chloride [Moles/Vol] 103 mmol/L 97 - 10 5 mmol/L [facility] CO2 [Moles/Vol] 28 mmol/L 22 - 30 mmol/L [facility] Creatinine [Mass/Vol] 0.69 mg/dL 0.58 - 0.96 mg/dL [facility] Estimated Glomerular Filtration Rate 112 mL/min/1.73m >=60 mL/min/1.73m [facility] Glucose [Mass/Vol] 100 mg/dL High 74 - 99 mg/dL [facility] Potassium [Moles/Vol] 3.9 mmol/L 3.7 - 5.1 mmol/L [facility] Protein [Mass/Vol] 7.0 g/dL 6.3 - 8.0 g/dL [facility] Sodium [Moles/Vol] 138 mmol/L 136 - 144 mmol/L [facility] Urea nitrogen [Mass/Vol] 12 mg/dL 7 - 21 mg/dL [facility] LD LACTATE DEHYDROon 022 LDH [Catalytic activity/Vol] 135 U/L 135 - 214 U/L [facility] PHOSPHORUS INORGANICon 03-04 Phosphate [Mass/Vol] 3.2 mg/dL 2.7 - 4 .8 mg/dL [facility] URIC ACID BLOODon 03-04-2022 Urate [Mass/Vol] 5.2 mg/dL 2.5 - 6.6 mg/dL [facility] IMMUNOGLOBULINS IGA/IGM/IGG/ IGE QUANTITAon 02-20-2022 Immunoglobulin A, Qn, Serum 189 mg/dL Normal 87-352 [facility] Comment on above: Result Comment: Perf ormed at: CB Performed By: #### LEANN PATRICKC #### [facility] [address] [address] [address] Manda York Immunoglobulin E, Total 10 IU/mL Normal 6-495 [facility] Comment on above: Result Comment: Perf ormed at: BN Performed By: #### LEANN PATRICKC #### [facility] [address] [address] [address] Manda York Immunoglobulin G, Qn, Serum 598 mg/dL Normal [id number] [facility] Comment on above: Result Comment: Perf ormed at: CB Performed By: #### LEANN PATRICKC #### [facility] [address] [id number] Dr. Manda York Immunoglobulin M, Qn, Serum 493 mg/dL Critically high 26-217 [facility] Comment on above: Result Comment: Perf ormed at: CB Performed By: #### LEANN PATRICKC #### [facility] [address] [address] [address] Manda York CHRISTIAN by IFAon 02-19-2022 Antinuclear Antibodies, IFA Negative Normal [facility] Comment on above: Result Comment: Nega tive <1:80 Borderline 1:80 Positive >1:80 ICAP nomenclature: [id number] For more information about Hep-2 cell patterns use ANApatterns.org, the official website for the International Consensus on Antinuclear Antibody (CHRISTIAN) Patterns (ICAP). Performed By: #### LEANN PATRICKC #### [facility] [address] [place] [address] Dr. Manda York THYROID ANTIBODIESon 022 Thyroglobulin Antibody <1.0 Normal 0.0-0.9 [facility] Comment on above: Result Comment: Thyr oglobulin Antibody measured by [employer] Methodology Performed By: #### F T4 #### [facility] [address] [address] [address] Manda York Thyroid Peroxidase (TPO) Ab <8 Normal 0-34 [facility] Comment on above: Performed By: #### F T4 #### [facility] [address] [place] [address] Dr. Manda York PROTEIN ELECTROPHERESISon Albumin [Mass/Vol] 3.2 g/dL Normal 2.9-4.4 [facility] Comment on above: Performed By: #### F T4 #### [facility] [address] [place] [address] Dr. Manda York Albumin/Globulin [Mass ratio] 1.0 {ratio} Normal 0.7-1.7 [facility] Comment on above: Performed By: #### F T4 #### [facility] [address] [place] [address] Dr. Manda York Etoyi-6-Msdvrqtg 0.2 g/dL Normal 0.0-0.4 [facility] Comment on above: Performed By: #### F T4 #### [facility] [address] [place] [address] Dr. Manda York Govsn-1-Srffgrwn 0.9 g/dL Normal 0.4-1.0 [facility] Comment on above: Performed By: #### F T4 #### [facility] [address] [place] [address] Dr. Manda York Beta Globulin 1.2 g/dL Normal 0.7-1.3 [facility] Comment on above: Performed By: #### F T4 #### [facility] [address] [place] [address] Dr. Manda York Gamma Globulin 0.9 g/dL Normal 0.4-1.[address] [facility] Comment on above: Performed By: #### F T4 #### [facility] [address] [place] [address] Dr. Manda York Globulin (S) [Mass/Vol] 3.2 g/dL Normal 2.2-3.9 [facility] Comment on above: Performed By: #### F T4 #### [facility] [address] [place] [address] Dr. Manda York M-Jose De Jesus Not Observed Normal Not Observed [facility] Comment on above: Performed By: #### F T4 #### [facility] [address] [place] [address] Dr. Manda York PDF . Normal [facility] Comment on above: Performed By: #### F T4 #### [facility] [address] [place] [address] Dr. Manda York Please note: Comment Normal [facility] Comment on above: Result Comment: Prot ein electrophoresis scan will follow via computer, mail, or c engineer delivery. Performed By: #### F T4 #### [facility] [address] [place] [address] Dr. Manda York Protein [Mass/Vol] 6.4 g/dL Normal 6.0-8.5 [facility] Comment on above: Performed By: #### F T4 #### [facility] [address] [place] [address] Dr. Manda York SLE PROFILE Aon 02-16-2022 Anti-DNA (DS) Ab Qn 9 IU/mL Normal 0-9 [facility] Comment on above: Result Comment: Nega tive <5 Equivocal 5 - 9 Positive >9 Performed By: #### S LEANN MELOC #### [facility] [address] [place] [address] Dr. Manda York Antichromatin Antibodies <0.2 Normal 0.0-0.9 [facility] Comment on above: Performed By: #### S LEANN MELOC #### [facility] [address] [place] [address] Dr. Manda York RA Latex Turbid. <10.0 Normal <14.0 [facility] Comment on above: Performed By: #### S LEANN MELOC #### [facility] [address] [place] [address] Dr. Manda York METAL FABRICATOR HELPER Antibodies <0.2 Normal 0.0-0.9 [facility] Comment on above: Performed By: #### LUIGI PATRICK #### [facility] [address] [place] [address] Dr. Manda Solorzanoogryaniv'lucinda Anti-SS-A <0.2 Normal 0.0-0.9 [facility] Comment on above: Performed By: #### LUIGI PATRICK #### [facility] [address] [place] [address] Dr. Manda Solorzanoogryaniv'lucinad Anti-SS-B <0.2 Normal 0.0-0.9 [facility] Comment on above: Performed By: #### LUIGI PATRICK #### [facility] [address] [place] [address] Dr. Manda York Schneider Antibodies <0.2 Normal 0.0-0.9 [facility] Comment on above: Performed By: #### LUIGI PATRICK #### [facility] [address] [place] [address] Dr. Manda York ANTISTREPTOLYSIN O AB (ASO)o n 02-15-2022 Antistreptolysin O Ab 49.6 IU/mL Normal 0.0-200.0 [facility] Comment on above: Performed By: #### A SOAB #### [facility] [address] [place] [address] Dr. Manda York MICROALBUMIN URINEon 022 Albumin, Urine <3.0 Normal Not Estab. [facility] Comment on above: Result Comment: Ve rified by repeat analysis Performed By: #### C BC #### [facility] [address] [place] [address] Dr. Manda York T4, T3U, FTI LABCORPon 02-15 Free Thyroxine Index 2.6 Normal 1.2-4.9 [facility] Comment on above: Performed By: #### LUIGI PATRICK #### [facility] [address] [place] [address] Dr. Manda York T3 Uptake 26 % Normal 24-39 [facility] Comment on above: Performed By: #### S LUIGI MELO #### [facility] [address] [address] [address] Manda York T4 [Mass/Vol] 9.9 ug/dL Normal 4.5-12.0 [facility] Comment on above: Performed By: #### S LEANN MELOC #### [facility] [address] [place] [address] Dr. Manda York CBC AUTO DIFFon 02-14-2022 BASO # 0.1 103/ul Normal 0.0-0.1 [facility] Comment on above: Performed By: #### U AMIC #### [facility] [address] [place] [address] Dr. Manda York Basophils/100 WBC (Bld) 0.6 % Normal 0.2-2.0 [facility] Comment on above: Performed By: #### U AMIC #### [facility] [address] [place] [address] Dr. Manda York EO # 0.3 103/ul Normal 0.0-0.7 [facility] Comment on above: Performed By: #### U AMIC #### [facility] [address] [place] [address] Dr. Manda York Eosinophils/100 WBC (Bld) 3.4 % Normal 0.9-7.0 [facility] Comment on above: Performed By: #### U AMIC #### [facility] [address] [place] [address] Dr. Manda York Erythrocyte distribution width (RBC) [Ratio] 14.6 % Normal 11.0-15.0 [facility] Comment on above: Performed By: #### U AMIC #### [facility] [address] [place] [address] Dr. Manda York Hematocrit (Bld) [Volume fraction] 39.1 % Normal 36.0-48.0 [facility] Comment on above: Performed By: #### U AMIC #### [facility] [address] [place] [address] Dr. Manda York Hemoglobin (Bld) [Mass/Vol] 12.4 g/dL Normal 12.0-16.0 [facility] Comment on above: Performed By: #### U AMIC #### [facility] [address] [place] [address] Dr. aMnda York IG # 0.03 10e3/ul Normal 0.00-0.03 [facility] Comment on above: Performed By: #### U AMIC #### [facility] [address] [place] [address] Dr. Manda York IG % 0.3 % Normal 0.0-0.5 [facility] Comment on above: Performed By: #### U AMIC #### [facility] [address] [place] [address] Dr. Manda York LYMPH # 3.6 103/ul Normal 1.2-3.8 [facility] Comment on above: Performed By: #### U AMIC #### [facility] [address] [place] [address] Dr. Manda York Lymphocytes/100 WBC (Bld) 39.9 % Normal 20.5-60.0 [facility] Comment on above: Performed By: #### U AMIC #### [facility] [address] [place] [address] Dr. Manda York MANUAL DIFF REQ NO Normal [facility] Comment on above: Performed By: #### U AMIC #### [facility] [address] [place] [address] Dr. Manda York MCH (RBC) [Entitic mass] 28.4 pg Normal 26.7-34.0 [facility] Comment on above: Performed By: #### U AMIC #### [facility] [address] [place] [address] Dr. Manda York MCHC (RBC) [Mass/Vol] 31.7 g/dL Normal 29.9-35.2 [facility] Comment on above: Performed By: #### U AMIC #### [facility] [address] [place] [address] Dr. Manda York MCV (RBC) [Entitic vol] 89.7 fL Normal 81.0-99.0 [facility] Comment on above: Performed By: #### U AMIC #### [facility] [address] [place] [address] Dr. Manda York MONO # 0.7 103/ul Normal 0.3-0.8 [facility] Comment on above: Performed By: #### U AMIC #### [facility] [address] [place] [address] Dr. Manda York Monocytes/100 WBC (Bld) 7.3 % Normal 1.7-12.0 [facility] Comment on above: Performed By: #### U AMIC #### [facility] [address] [place] [address] Dr. Manda York NEUT # 4.4 103/ul Normal 1.4-6.5 [facility] Comment on above: Performed By: #### U AMIC #### [facility] [address] [place] [address] Dr. Manda York Neutrophils/100 WBC (Bld) 48.5 % Normal 43.0-75.0 [facility] Comment on above: Performed By: #### U AMIC #### [facility] [address] [place] [address] Dr. Manda York Platelet mean volume (Bld) [Entitic vol] 10.1 fL Normal 9.5-13.5 [facility] Comment on above: Performed By: #### U AMIC #### [facility] [address] [place] [address] Dr. Manda York PLT 310 103/ul Normal 150-450 [facility] Comment on above: Performed By: #### U AMIC #### [facility] [address] [place] [address] Dr. Manda York RBC 4.36 106/ul Normal 4.20-5.40 [facility] Comment on above: Performed By: #### U AMIC #### [facility] [address] [place] [address] Dr. Manda York WBC 9.0 103/ul Normal 4.0-11.0 [facility] Comment on above: Performed By: #### U AMIC #### [facility] [address] [place] [address] Dr. Manda York CRPon 02-14-2022 CRP [Mass/Vol] mg/L Normal <=1.0 [facility] Comment on above: Performed By: #### U AMIC #### [facility] [address] [place] [address] Dr. Manda York CULTURE URINEon 02-14-2022 CULTURE URINE Culture Observations : LIGHT GROWTH OF MIXED GENITAL AMBER. NO POTENTIAL PATHOGENS SEEN. Normal [facility] Comment on above: Performed By: #### C BC #### [facility] [address] [place] [address] Dr. Manda York PROF 14(COMP METB)on 022 Albumin [Mass/Vol] 3.5 g/dL Normal 3.4-5.0 [facility] Comment on above: Performed By: #### U AMIC #### [facility] [address] [place] [address] Dr. Manda York Albumin/Globulin [Mass ratio] 1.0 {ratio} Normal [facility] Comment on above: Performed By: #### U AMIC #### [facility] [address] [place] [address] Dr. Manda York ALP [Catalytic activity/Vol] 71 U/L Normal 46-116 [facility] Comment on above: Performed By: #### U AMIC #### [facility] [address] [place] [address] Dr. Manda York ALT [Catalytic activity/Vol] 46 U/L Normal 14-59 [facility] Comment on above: Performed By: #### U AMIC #### [facility] [address] [place] [address] Dr. Manda York Anion gap [Moles/Vol] 11.6 mmol/L Normal [facility] Comment on above: Performed By: #### U AMIC #### [facility] [address] [place] [address] Dr. Manda York AST [Catalytic activity/Vol] 15 U/L Normal 15-37 [facility] Comment on above: Performed By: #### U AMIC #### [facility] [address] [address] [address] Manda York Bilirubin [Mass/Vol] 0.2 mg/dL Normal 0.2-1.0 [facility] Comment on above: Performed By: #### U AMIC #### [facility] [address] [address] [address] Manda York Calcium [Mass/Vol] 8.7 mg/dL Normal 8.5-10.1 [facility] Comment on above: Performed By: #### U AMIC #### [facility] [address] [place] [address] Dr. Manda York Chloride [Moles/Vol] 104 mmol/L Normal 98-107 [facility] Comment on above: Performed By: #### U AMIC #### [facility] [address] [address] [address] Manda York CO2 [Moles/Vol] 25.1 mmol/L Normal 21.0-32.0 [facility] Comment on above: Performed By: #### U AMIC #### [facility] [address] [place] [address] Dr. Manda York Creatinine [Mass/Vol] 0.80 mg/dL Normal 0.55-1.02 [facility] Comment on above: Performed By: #### U AMIC #### [facility] [address] [place] [address] Dr. Manda York EGFR-AF ETHIOPIAN >60 Normal >=60 [facility] Comment on above: Performed By: #### U AMIC #### [facility] [address] [place] [address] Dr. Manda York EGFR-NON AF ETHIOPIAN >60 Normal >=60 [facility] Comment on above: Performed By: #### U AMIC #### [facility] [address] [place] [address] Dr. Manda York Globulin (S) [Mass/Vol] 3.6 g/dL Normal [facility] Comment on above: Performed By: #### U AMIC #### [facility] [address] [address] [address] Manda York Glucose [Mass/Vol] 92 mg/dL Normal 74-106 [facility] Comment on above: Performed By: #### U AMIC #### [facility] [address] [address] [address] Manda York Potassium [Moles/Vol] 3.7 mmol/L Normal 3.5-5.1 [facility] Comment on above: Performed By: #### U AMIC #### [facility] [address] [address] [address] Manda York Protein [Mass/Vol] 7.1 g/dL Normal 6.4-8.2 [facility] Comment on above: Performed By: #### U AMIC #### [facility] [address] [address] [address] Manda York Sodium [Moles/Vol] 137 mmol/L Normal 136-145 [facility] Comment on above: Performed By: #### U AMIC #### [facility] [address] [address] [address] Manda York Urea nitrogen [Mass/Vol] 17.0 mg/dL Normal 7.0-18.0 [facility] Comment on above: Performed By: #### U AMIC #### [facility] [address] [address] [address] Manda Yrok Urea nitrogen/Creatinine [Mass ratio] 21.2 mg/mg Normal [facility] Comment on above: Performed By: #### U AMIC #### [facility] [address] [address] [address] Manda York [facility] SED [facility] 40 mm/hr Critically high <=20 [facility] Comment on above: Performed By: #### S EDR #### [facility] [address] [address] [address] Manda York TSHon 02-14-2022 TSH 1.155 uIU/mL Normal 0.358-3.740 [facility] Comment on above: Performed By: #### U AMIC #### [facility] [address] [place] [address] Dr. Manda York UA RANDOM W/MICROSCOPICon BACTERIA NONE SEEN Normal NONE SEEN [facility] Comment on above: Performed By: #### U AMIC #### [facility] [address] [place] [address] Dr. Manda York Bilirubin Ql (U) Negative Normal NEGATIVE [facility] Comment on above: Performed By: #### U AMIC #### [facility] [address] [place] [address] Dr. Manda York CAST NONE SEEN Normal NONE SEEN [facility] Comment on above: Performed By: #### U AMIC #### [facility] [address] [place] [address] Dr. Manda York Clarity (U) CLEAR Normal CLEAR [facility] Comment on above: Performed By: #### U AMIC #### [facility] [address] [place] [address] Dr. Manda York Color (U) LT. YELLOW Normal YELLOW [facility] Comment on above: Performed By: #### U AMIC #### [facility] [address] [place] [address] Dr. Manda York Crystals LM Nom (Urine sed) NONE SEEN Normal NONE SEEN [facility] Comment on above: Performed By: #### U AMIC #### [facility] [address] [place] [address] Dr. Manda York Epithelial cells LM Ql (Urine sed) RARE Normal NONE SEEN /RARE [facility] Comment on above: Performed By: #### U AMIC #### [facility] [address] [place] [address] Dr. Manda York Glucose Ql (U) Negative Normal NEGATIVE [facility] Comment on above: Performed By: #### U AMIC #### [facility] [address] [place] [address] Dr. Manda York Hemoglobin Ql (U) Negative Normal NEGATIVE [facility] Comment on above: Performed By: #### U AMIC #### [facility] [address] [address] [address] Manda York Ketones Ql (U) Negative Normal NEGATIVE [facility] Comment on above: Performed By: #### U AMIC #### [facility] [address] [address] [address] Manda York LEUKOCYTES Negative Normal NEGATIVE [facility] Comment on above: Performed By: #### U AMIC #### [facility] [address] [address] [address] Manda York MUCOUS NONE SEEN Normal NONE SEEN [facility] Comment on above: Performed By: #### U AMIC #### [facility] [address] [place] [address] Dr. Manda York Nitrite Ql (U) Negative Normal NEGATIVE [facility] Comment on above: Performed By: #### U AMIC #### [facility] [address] [address] [address] Manda York pH (U) 6.0 [pH] Normal 5-9 [facility] Comment on above: Performed By: #### U AMIC #### [facility] [address] [address] [address] Manda York RBC NONE SEEN Abnormal 0-2 [facility] Comment on above: Performed By: #### U AMIC #### [facility] [address] [place] [address] Dr. Manda York SPEC GRAVITY 1.005 Normal 1.005-<=1.025 [facility] Comment on above: Performed By: #### U AMIC #### [facility] [address] [address] [address] Manda York UA PROTEIN Negative Normal NEGATIVE/ TRACE [facility] Comment on above: Performed By: #### U AMIC #### [facility] [address] [place] [address] Dr. Manda York Urobilinogen Qn (U) 0.2 {Carmella'U}/dL Normal 0.2 - 1. 0 [facility] Comment on above: Performed By: #### U AMIC #### [facility] [address] [address] [address] Manda York WBC NONE SEEN Normal NONE SEEN [facility] Comment on above: Performed By: #### U AMIC #### [facility] [address] [address] [address] Manda York URIC ACID SERUMon 02-14-2022 Urate [Mass/Vol] 4.2 mg/dL Normal 2.6-6.0 [facility] Comment on above: Performed By: #### U AMIC #### [facility] [address] [address] [address] Manda York VITAMIN D 25 OHon 02-14-2022 VIT D 25-OH 22.4 ng/mL Normal [facility] Comment on above: Performed By: #### F T4 #### [facility] [address] [address] [address] Manda York VIT D RANGES SEE BELOW Normal [facility] Comment on above: Result Comment: <20 ng/mL Vit D deficient 20 - <30 ng/mL Vit D insufficient 30 - 100 ng/mL Vit D sufficient >100 ng/mL Potential Toxicity Performed By: #### F T4 #### [facility] [address] [address] [address] Manda York METANEPHRINES FRAC. QNT 24 H R URINEon 11-28-2021 Metanephrine, U,24hr Comment Normal 36-209 [facility] Comment on above: Result Comment: No t otal volume submitted. Unable to calculate 24 hour result. Performed By: #### S LORIE THYLC #### [facility] [address] [address] [address] Manda York Metanephrine, Ur 57 ug/L Normal Undefined [facility] Comment on above: Performed By: #### S LOIRE THYLC #### [facility] [address] [address] [address] Manda York Normetanephr.,U,24h Comment Normal 131-612 [facility] Comment on above: Result Comment: No t otal volume submitted. Unable to calculate 24 hour result. Performed By: #### Lucinda MELO THYLC #### [facility] [address] [place] [address] Dr. Manda York Normetanephrine, Ur 116 ug/L Normal Undefined [facility] Comment on above: Performed By: #### LEANN PATRICKC #### [facility] [address] [place] [address] Dr. Manda York METANEPHRINES PLASMA FREEon 11-27-2021 Metanephrine, Pl 22.1 pg/mL Normal 0.0-88.0 [facility] Comment on above: Performed By: #### LEANN PATRICKC #### [facility] [address] [place] [address] Dr. aMnda York Normetanephrine, Pl 50.7 pg/mL Normal 0.0-218.9 [facility] Comment on above: Performed By: #### LEANN PATRICKC #### [facility] [address] [place] [address] Dr. Manda York CMV PLASMA PCRon 11-19-2021 CMV Quant DNA PCR (Plasma) Negative Normal Negative [facility] Comment on above: Result Comment: No C MV DNA detected. The quantitative range of this assay is 200 to 1 million IU/mL. Performed By: #### LEANN PATRICKC #### [facility] [address] [place] [address] Dr. Manda York log10 CMV Qn DNA Pl UPTCAL Normal [facility] Comment on above: Result Comment: Unab le to calculate result since non-numeric result obtained for component test. Performed By: #### Lucinda MELO THYLC #### [facility] [address] [place] [address] Dr. Manda York CMV AB IGMon 11-18-2021 Cytomegalovirus (CMV) Ab, IgM 43.2 AU/mL Critically high 0.0-29.9 [facility] Comment on above: Result Comment: Nega tive <30.0 Equivocal 30.0 - 34.9 Positive >34.9 A positive result is generally indicative of acute infection, reactivation or persistent IgM production. Performed By: #### S LORIE [facility] #### [facility] [address] [place] [address] Dr. Manda York CMV AB, IGGon 11-18-2021 Cytomegalovirus (CMV) Ab, IgG >10.00 Critically high 0.00-0.59 [facility] Comment on above: Result Comment: Nega tive <0.60 Equivocal 0.60 - 0.69 Positive >0.69 Performed By: #### C MVIGG #### [facility] [address] [place] [address] Dr. Manda York CBC AUTO DIFFon 11-17-2021 BASO # 0.1 103/ul Normal 0.0-0.1 [facility] Comment on above: Performed By: #### C BC #### [facility] [address] [place] [address] Dr. Manda York Basophils/100 WBC (Bld) 0.6 % Normal 0.2-2.0 [facility] Comment on above: Performed By: #### C BC #### [facility] [address] [place] [address] Dr. Manda York EO # 0.2 103/ul Normal 0.0-0.7 [facility] Comment on above: Performed By: #### C BC #### [facility] [address] [place] [address] Dr. Manda York Eosinophils/100 WBC (Bld) 2.3 % Normal 0.9-7.0 [facility] Comment on above: Performed By: #### C BC #### [facility] [address] [place] [address] Dr. Manda York Erythrocyte distribution width (RBC) [Ratio] 14.2 % Normal 11.0-15.0 [facility] Comment on above: Performed By: #### C BC #### [facility] [address] [place] [address] Dr. Manda York Hematocrit (Bld) [Volume fraction] 40.2 % Normal 36.0-48.0 [facility] Comment on above: Performed By: #### C BC #### [facility] [address] [place] [address] Dr. Manda oYrk Hemoglobin (Bld) [Mass/Vol] 12.8 g/dL Normal 12.0-16.0 [facility] Comment on above: Performed By: #### C BC #### [facility] [address] [place] [address] Dr. Manda York IG # 0.02 10e3/ul Normal 0.00-0.03 [facility] Comment on above: Performed By: #### C BC #### [facility] [address] [place] [address] Dr. Manda York IG % 0.2 % Normal 0.0-0.5 [facility] Comment on above: Performed By: #### C BC #### [facility] [address] [place] [address] Dr. Manda York LYMPH # 2.5 103/ul Normal 1.2-3.8 [facility] Comment on above: Performed By: #### C BC #### [facility] [address] [place] [address] Dr. Manda York Lymphocytes/100 WBC (Bld) 24.9 % Normal 20.5-60.0 [facility] Comment on above: Performed By: #### C BC #### [facility] [address] [place] [address] Dr. Manda York MANUAL DIFF REQ NO Normal [facility] Comment on above: Performed By: #### C BC #### [facility] [address] [place] [address] Dr. Manda York MCH (RBC) [Entitic mass] 27.9 pg Normal 26.7-34.0 [facility] Comment on above: Performed By: #### C BC #### [facility] [address] [place] [address] Dr. Manda York MCHC (RBC) [Mass/Vol] 31.8 g/dL Normal 29.9-35.2 [facility] Comment on above: Performed By: #### C BC #### [facility] [address] [address] [address] Manda York MCV (RBC) [Entitic vol] 87.6 fL Normal 81.0-99.0 [facility] Comment on above: Performed By: #### C BC #### [facility] [address] [address] [address] Manda York MONO # 0.6 103/ul Normal 0.3-0.8 [facility] Comment on above: Performed By: #### C BC #### [facility] [address] [place] [address] Dr. Manda York Monocytes/100 WBC (Bld) 6.3 % Normal 1.7-12.0 [facility] Comment on above: Performed By: #### C BC #### [facility] [address] [place] [address] Dr. Manda York NEUT # 6.5 103/ul Normal 1.4-6.5 [facility] Comment on above: Performed By: #### C BC #### [facility] [address] [place] [address] Dr. Manda York Neutrophils/100 WBC (Bld) 65.7 % Normal 43.0-75.0 [facility] Comment on above: Performed By: #### C BC #### [facility] [address] [place] [address] Dr. Manda York Platelet mean volume (Bld) [Entitic vol] 10.1 fL Normal 9.5-13.5 [facility] Comment on above: Performed By: #### C BC #### [facility] [address] [place] [address] Dr. Manda York PLT 304 103/ul Normal 150-450 [facility] Comment on above: Performed By: #### C BC #### [facility] [address] [place] [address] Dr. Manda York RBC 4.59 106/ul Normal 4.20-5.40 [facility] Comment on above: Performed By: #### C BC #### [facility] [address] [place] [address] Dr. Manda York WBC 9.9 103/ul Normal 4.0-11.0 [facility] Comment on above: Performed By: #### C BC #### [facility] [address] [place] [address] Dr. Manda York PROF 14(COMP METB)on 022 Albumin [Mass/Vol] 3.7 g/dL Normal 3.4-5.0 [facility] Comment on above: Performed By: #### C BC #### [facility] [address] [place] [address] Dr. Manda York Albumin/Globulin [Mass ratio] 1.0 {ratio} Normal [facility] Comment on above: Performed By: #### C BC #### [facility] [address] [place] [address] Dr. Manda York ALP [Catalytic activity/Vol] 65 U/L Normal 46-116 [facility] Comment on above: Performed By: #### C BC #### [facility] [address] [place] [address] Dr. Manda York ALT [Catalytic activity/Vol] 35 U/L Normal 14-59 [facility] Comment on above: Performed By: #### C BC #### [facility] [address] [place] [address] Dr. Manda York Anion gap [Moles/Vol] 13.0 mmol/L Normal [facility] Comment on above: Performed By: #### C BC #### [facility] [address] [place] [address] Dr. Manda York AST [Catalytic activity/Vol] 12 U/L Critically low 15-37 [facility] Comment on above: Performed By: #### C BC #### [facility] [address] [place] [address] Dr. Manda York Bilirubin [Mass/Vol] 0.2 mg/dL Normal 0.2-1.0 [facility] Comment on above: Performed By: #### C BC #### [facility] [address] [place] [address] Dr. Manda York Calcium [Mass/Vol] 8.7 mg/dL Normal 8.5-10.1 [facility] Comment on above: Performed By: #### C BC #### [facility] [address] [place] [address] Dr. Manda York Chloride [Moles/Vol] 104 mmol/L Normal 98-107 [facility] Comment on above: Performed By: #### C BC #### [facility] [address] [place] [address] Dr. Manda York CO2 [Moles/Vol] 24.9 mmol/L Normal 21.0-32.0 [facility] Comment on above: Performed By: #### C BC #### [facility] [address] [place] [address] Dr. Manda York Creatinine [Mass/Vol] 0.77 mg/dL Normal 0.55-1.02 [facility] Comment on above: Performed By: #### C BC #### [facility] [address] [place] [address] Dr. Manda York EGFR-AF ETHIOPIAN >=60 Normal >=60 [facility] Comment on above: Performed By: #### C BC #### [facility] [address] [place] [address] Dr. Manda York EGFR-NON AF ETHIOPIAN >=60 Normal >=60 [facility] Comment on above: Performed By: #### C BC #### [facility] [address] [place] [address] Dr. Manda York Globulin (S) [Mass/Vol] 3.8 g/dL Normal [facility] Comment on above: Performed By: #### C BC #### [facility] [address] [place] [address] Dr. Manda York Glucose [Mass/Vol] 110 mg/dL Critically high 74-106 [facility] Comment on above: Performed By: #### C BC #### [facility] [address] [place] [address] Dr. Manda York Potassium [Moles/Vol] 3.9 mmol/L Normal 3.5-5.1 [facility] Comment on above: Performed By: #### C BC #### [facility] [address] [address] [address] Manda York Protein [Mass/Vol] 7.5 g/dL Normal 6.4-8.2 [facility] Comment on above: Performed By: #### C BC #### [facility] [address] [address] [address] Manda York Sodium [Moles/Vol] 138 mmol/L Normal 136-145 [facility] Comment on above: Performed By: #### C BC #### [facility] [address] [address] [address] Manda York Urea nitrogen [Mass/Vol] 17.0 mg/dL Normal 7.0-18.0 [facility] Comment on above: Performed By: #### C BC #### [facility] [address] [address] [address] Manda York Urea nitrogen/Creatinine [Mass ratio] 22.1 mg/mg Normal [facility] Comment on above: Performed By: #### C BC #### [facility] [address] [address] [address] Manda York SED RATE [facility] 2021 SED RATE 45 mm/hr Critically high <=20 [facility] Comment on above: Performed By: #### F T4 #### [facility] [address] [address] [address] Manda York CHRISTIAN EIA W/REFLEX 5 BIOMARKER Son 10-06-2021 CHRISTIAN Direct Positive Abnormal Negative [facility] Comment on above: Performed By: #### C BC #### [facility] [address] [address] [address] Manda York Anti-DNA (DS) Ab Qn 10 IU/mL Critically high 0-9 [facility] Comment on above: Result Comment: Nega tive <5 Equivocal 5 - 9 Positive >9 Performed By: #### C BC #### [facility] [address] [address] [address] Manda York METAL FABRICATOR HELPER Antibodies <0.2 Normal 0.0-0.9 [facility] Comment on above: Performed By: #### C #### [facility] [address] [place] [address] Dr. Manda York SEE BELOW: Comment Normal [facility] Comment on above: Result Comment: Auto antibody [...] Sm (anti-Schneider) SLE 15 - 30% --------- METAL FABRICATOR HELPER Mixed Connective Tissue Disease 95% (U1 nRNP, SLE 30 - 50% anti-ribonucleoprotein) Polymyositis and/or Dermatomyositis 20% --------- Scl-70 (antiDNA Scleroderma (diffuse) 20 - 35% topoisomerase) Crest 13% --------- Felicita-1 Polymyositis and/or Dermatomyositis 20 - 40% --------- Centromere B Scleroderma - Crest variant 80% Performed By: #### C BC #### [facility] [address] [place] [address] Dr. Manda Solorzanoogryaniv'lucinda Anti-SS-A <0.2 Normal 0.0-0.9 [facility] Comment on above: Performed By: #### C BC #### [facility] [address] [address] [address] Manda Solorzanoogryaniv'lucinda Anti-SS-B <0.2 Normal 0.0-0.9 [facility] Comment on above: Performed By: #### C BC #### [facility] [address] [address] [address] Manda York Schneider Antibodies <0.2 Normal 0.0-0.9 [facility] Comment on above: Performed By: #### C BC #### [facility] [address] [place] [address] Dr. Manda York CMV PLASMA PCRon 10-06-2021 CMV Quant DNA PCR (Plasma) Negative Normal Negative [facility] Comment on above: Result Comment: No C MV DNA detected. The quantitative range of this assay is 200 to 1 million IU/mL. Performed By: #### C MVPL #### [facility] [address] [place] [address] Dr. Manda York log10 CMV Qn DNA Pl UPTCAL Normal [facility] Comment on above: Result Comment: Unab le to calculate result since non-numeric result obtained for component test. Performed By: #### C MVPL #### [facility] [address] [place] [address] Dr. Manda York CMV AB IGMon 2021 Cytomegalovirus (CMV) Ab, IgM 35.5 AU/mL Critically high 0.0-29.9 [facility] Comment on above: Result Comment: Nega tive <30.0 Equivocal 30.0 - 34.9 Positive >34.9 A positive result is generally indicative of acute infection, reactivation or persistent IgM production. Performed By: #### S LEANN MELOC #### [facility] [address] [place] [address] Dr. Manda York CMV AB, IGGon 2021 Cytomegalovirus (CMV) Ab, IgG 6.30 U/mL Critically high 0.00-0.59 [facility] Comment on above: Result Comment: Nega tive <0.60 Equivocal 0.60 - 0.69 Positive >0.69 Performed By: #### S LEANN MELOC #### [facility] [address] [place] [address] Dr. Manda York CBC AUTO DIFFon 10-03-2021 BASO # 0.1 103/ul Normal 0.0-0.1 [facility] Comment on above: Performed By: #### C BC #### [facility] [address] [place] [address] Dr. Manda York Basophils/100 WBC (Bld) 0.7 % Normal 0.2-2.0 [facility] Comment on above: Performed By: #### C BC #### [facility] [address] [place] [address] Dr. Manda York EO # 0.2 103/ul Normal 0.0-0.7 [facility] Comment on above: Performed By: #### C BC #### [facility] [address] [place] [address] Dr. Manda York Eosinophils/100 WBC (Bld) 2.0 % Normal 0.9-7.0 [facility] Comment on above: Performed By: #### C BC #### [facility] [address] [place] [address] Dr. Manda York Erythrocyte distribution width (RBC) [Ratio] 14.4 % Normal 11.0-15.0 [facility] Comment on above: Performed By: #### C BC #### [facility] [address] [place] [address] Dr. Manda York Hematocrit (Bld) [Volume fraction] 37.2 % Normal 36.0-48.0 [facility] Comment on above: Performed By: #### C BC #### [facility] [address] [place] [address] Dr. Manda York Hemoglobin (Bld) [Mass/Vol] 12.3 g/dL Normal 12.0-16.0 [facility] Comment on above: Performed By: #### C BC #### [facility] [address] [place] [address] Dr. Manda York IG # 0.02 10e3/ul Normal 0.00-0.03 [facility] Comment on above: Performed By: #### C BC #### [facility] [address] [place] [address] Dr. Manda York IG % 0.2 % Normal 0.0-0.5 [facility] Comment on above: Performed By: #### C BC #### [facility] [address] [place] [address] Dr. Manda York LYMPH # 2.1 103/ul Normal 1.2-3.8 [facility] Comment on above: Performed By: #### C BC #### [facility] [address] [place] [address] Dr. Manda York Lymphocytes/100 WBC (Bld) 26.4 % Normal 20.5-60.0 [facility] Comment on above: Performed By: #### C BC #### [facility] [address] [place] [address] Dr. Manda York MANUAL DIFF REQ NO Normal [facility] Comment on above: Performed By: #### C BC #### [facility] [address] [place] [address] Dr. Manda York MCH (RBC) [Entitic mass] 29.2 pg Normal 26.7-34.0 [facility] Comment on above: Performed By: #### C BC #### [facility] [address] [place] [address] Dr. Manda York MCHC (RBC) [Mass/Vol] 33.1 g/dL Normal 29.9-35.2 [facility] Comment on above: Performed By: #### C BC #### [facility] [address] [place] [address] Dr. Manda York MCV (RBC) [Entitic vol] 88.4 fL Normal 81.0-99.0 [facility] Comment on above: Performed By: #### C BC #### [facility] [address] [place] [address] Dr. Manda York MONO # 0.5 103/ul Normal 0.3-0.8 [facility] Comment on above: Performed By: #### C BC #### [facility] [address] [place] [address] Dr. Manda York Monocytes/100 WBC (Bld) 6.7 % Normal 1.7-12.0 [facility] Comment on above: Performed By: #### C BC #### [facility] [address] [place] [address] Dr. Manda York NEUT # 5.2 103/ul Normal 1.4-6.5 [facility] Comment on above: Performed By: #### C BC #### [facility] [address] [place] [address] Dr. Manda York Neutrophils/100 WBC (Bld) 64.0 % Normal 43.0-75.0 [facility] Comment on above: Performed By: #### C BC #### [facility] [address] [place] [address] Dr. Manda York Platelet mean volume (Bld) [Entitic vol] 10.5 fL Normal 9.5-13.5 [facility] Comment on above: Performed By: #### C BC #### [facility] [address] [place] [address] Dr. Manda York PLT 265 103/ul Normal 150-450 [facility] Comment on above: Performed By: #### C BC #### [facility] [address] [place] [address] Dr. Manda York RBC 4.21 106/ul Normal 4.20-5.40 [facility] Comment on above: Performed By: #### C BC #### [facility] [address] [place] [address] Dr. Manda York WBC 8.1 103/ul Normal 4.0-11.0 [facility] Comment on above: Performed By: #### C BC #### [facility] [address] [place] [address] Dr. Manda York CRPon 10-03-2021 CRP [Mass/Vol] mg/L Normal <=1.0 [facility] Comment on above: Performed By: #### F T4 #### [facility] [address] [place] [address] Dr. Manda York [id number] SED RATE 34 mm/hr Critically high <=20 [facility] Comment on above: Performed By: #### C BC #### [facility] [address] [place] [address] Dr. Manda York CHLORIDE (POC)Ordered By: Jae Black on 10-07-2020 Chloride [Moles/Vol] 106 mmol/L 98 - 10 7 mmol/L [facility] Work Phone: Catheterization and angiogra phy procedure details panelOrdered By: Jonas Black on 10-07-2020 Cardiac Diagnostic Report Demographics Patient TERA Torres Date of Study 10/07/2020 Name Date of 1980 Gender Female Age 40 year(s) Race Room [id number]^LEYDI^JONAS Height: 67 inch, 170.18 cm Number Corporate [id number] Weight: 234 pounds, 106.1 kg ID # Patient [id number] BSA: 2.16 m^2 BMI: 36.65 kg/m^2 Acct # MR # [id number] Performing Jonas Black Physician Referring # Physician [...] Right coronary angiography. Contrast Material: - Isovue 05067 ml Fluoroscopy Time: Diagnostic: 2:12 minutes. Total: [...] assessed as CCS II according to the [place] clinical classification. Hemodynamics Condition: Baseline Room Air [...] + + !Aortic (more content not included)... [facility] Work Phone: Jr, pn Incoming Cardio Results From [facility]/ - 10/07/2020 10:37 AM EDT Cardiac Diagnostic Report Demographics Patient TERA Torres Date of Study 10/07/2020 Name Date of 1980 Gender Female Age 40 year(s) Race Room [id number]^LEYDI^JONAS Height: 67 inch, 170.18 cm Number Corporate [id number] Weight: 234 pounds, 106.1 kg ID # Patient [id number] BSA: 2.16 m^2 BMI: 36.65 kg/m^2 Acct # MR # [id number] Performing Jonas Black Physician Referring # Physician [...] Medical treatments Risk factor modification. Signature - Electronically signed by Jonas Black([facility] Phys[facility]) on 10/07/2020 10:36 - Angiographic Findings Cardiac Arteries and Lesion [...] Right coronary angiography. Contrast Material: - Isovue 97759 ml Fluoroscopy Time: Diagnostic: 2:12 minutes. Total: [...] assessed as CCS II according to the [place] clinical classification. Hemodynamics Condition: Baseline Room Air [...] +--------- + + Shunts Oxygen Values O2 [id number] [employer] Phone: [employer] Phone: [employer] Phone: Creatinine W/GFR Point of Ca reOrdered By: Jonas Black on 10-07-2020 Creatinine [Mass/Vol] 0.64 mg/dL 0.51 - 1.19 mg/dL [employer] Phone: GFR Non- >60 >60 mL/min [employer] Phone: GFR/1.73 sq M.predicted MDRD (S/P/Bld) [Vol rate/Area] mL/min/{1.73_m2} >60 mL/min [employer] Phone: GFR/1.73 sq M.predicted MDRD (S/P/Bld) [Vol rate/Area] [employer] Phone: Comment on above: Average GFR for 40-4 9 years old: 99 mL/min/1.73sq m Chronic Kidney Disease: <60 mL/min/1.73sq m Kidney failure: <15 mL/min/1.73sq m eGFR calculated using average adult body mass. Additional eGFR calculator available at: http://www.[employer]/AlgEvolve_crcl_2011.htm Hemoglobin and hematocrit, b loodOrdered By: Jonas Black on 10-07-2020 Hematocrit (Bld) [Volume fraction] 41 % 36 - 46 % [employer] Phone: Hemoglobin (Bld) [Mass/Vol] 14.0 g/dL 12.0 - 16.0 g/dL [employer] Phone: No Panel InformationOrdered By: Jonas Black on 10-07-2020 [employer] Phone: POCT GlucoseOrdered By: Anu Black on 10-07-2020 Glucose [Mass/Vol] 98 mg/dL 74 - 100 mg/dL [employer] Phone: POCT urine pregnancyOrdered By: Jonas Black on 10-07-2020 Beta HCG ( test) Ql (U) Negative NEGATIVE [employer] Phone: Comment on above: Specimens with hCG l evels near the threshold of the test (25 mIU/mL) may give a negative or indeterminate result. In such cases, another test should be performed with a new specimen in 48-72 hours. If early is suspected clinically in this setting, correlation with quantitative serum b-hCG level is suggested. [employer] Phone: POTASSIUM (POC)Ordered By: Al Black on 10-07-2020 Potassium [Moles/Vol] 3.8 mmol/L 3.5 - 4.5 mmol/L [employer] Phone: Platelet Counton 10-07-2020 Platelets (Bld) [#/Vol] 299 10*3/uL Normal 138-453 [facility] Comment on above: Performed By: #### P LT #### [facility] [place] [address] Oncology Rep: Rick Serrano MD Platelet countOrdered By: Jae Black on 10-07-2020 Platelets (Bld) [#/Vol] 299 10*3/uL [employer] Phone: [employer] Phone: SODIUM (POC)Ordered By: Anu Black on 10-07-2020 Sodium [Moles/Vol] 141 mmol/L 138 - 146 mmol/L [employer] Phone: Coding Summary.on 01-12-2019 Coding Summary. CODING DATE: 01/12/2019 FINAL [facility] STATUS: Home (Routine DC) PAYOR: Medicaid [...] Date Saved: 01/12/2019 10:25 am [facility] Coding Summary. CODING DATE: 01/12/2019 FINAL [facility] STATUS: Home (Routine DC) PAYOR: [...] mass index (BMI) 34.0-34.9, adult Z79.899 Other fpc (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 However, the narrative phrase printed from the coding software may appear abbreviated, or result in slightly different terminology. Revised Coded By: Luz Judd Revised Date Saved: 01/12/2019 10:25 am [facility] XR Chest 2 Viewson 9 XR [...] M.D. Transcribed by: BILL Technologist: ZOILA Normal [facility] Auto Diffon 01-11-2019 Basophils/100 WBC (Bld) 0.8 % Normal 0.0-2.0 [facility] Comment on above: Order Comment: Order Added by Discern Expert. Performed By: #### 1 [id number], [id number], 1906557, [id number], 4082767, 0430919, 9160249, 3425926, [id number], [id number] #### [facility] [address] [place] [address] Basophils/Leukocytes Auto (Bld) [Pure # fraction] 0.1 E9/L Normal 0.0-0.2 [facility] Comment on above: Order Comment: Order Added by Discern Expert. Performed By: #### 1 [id number], [id number], [id number], 0595916, 08660329, 4401479, 6259434, 2403822, 0735206, [id number], [id number] #### [facility] [address] [place] [address] Eosinophils/100 WBC (Bld) 1.9 % Normal 0.0-8.0 [facility] Comment on above: Order Comment: Order Added by Discern Expert. Performed By: #### 1 [id number], [id number], 3784364, 6635345, [id number], 6111967, 9915925, 1841571, 2295629, 96581503, 3568888 #### [facility] [address] [place] [address] Eosinophils/Leukocytes Auto (Bld) [Pure # fraction] 0.1 E9/L Normal 0.0-0.5 [facility] Comment on above: Order Comment: Order Added by Discern Expert. Performed By: #### 1 [id number], [id number], 8989939, 0599531, 82327872, 7746038, 3678463, 7140621, 6230026, 00678177, 4011624 #### [facility] [address] [place] [address] Lymphocytes/100 WBC (Bld) 28.0 % Normal 14.0-50.0 [facility] Comment on above: Order Comment: Order Added by Discern Expert. Performed By: #### 1 [id number], [id number], 6310791, 4533053, 68769717, 8806313, 8647925, 4425439, 3164889, 75443210, 1479081 #### [facility] [address] [place] [address] Lymphocytes/Leukocytes Auto (Bld) [Pure # fraction] 2.2 E9/L Normal 1.0-4.0 [facility] Comment on above: Order Comment: Order Added by Discern Expert. Performed By: #### 1 [id number], [id number], 7042520, 7142684, 60878144, 5810749, 4822056, 2578085, 8661555, 79376300, 1711531 #### [facility] [address] [place] [address] Monocytes/100 WBC (Bld) 7.0 % Normal 4.0-14.0 [facility] Comment on above: Order Comment: Order Added by Discern Expert. Performed By: #### 1 [id number], 8283392, 7116904, 0641392, 23677692, 8173166, 4472370, 1868869, 1105826, 51297632, [id number] #### [facility] [address] [place] [address] Monocytes/Leukocytes Auto (Bld) [Pure # fraction] 0.6 E9/L Normal 0.2-1.0 [facility] Comment on above: Order Comment: Order Added by Discern Expert. Performed By: #### 1 7234053, 7020069, 7827241, 3474501, 81032016, 1573964, 2636335, 2439970, 2785075, 00375362, 2218156 #### [facility] [address] [place] [address] Neutrophils/100 WBC (Bld) 62.3 % Normal 36.0-75.0 [facility] Comment on above: Order Comment: Order Added by Discern Expert. Performed By: #### 1 0470048, 1278186, 4429735, 8098882, 59595571, 1127523, 4652472, 2794428, 7121697, 75499080, 3942220 #### [facility] [address] [place] [address] Neutrophils/Leukocytes Auto (Bld) [Pure # fraction] 4.9 E9/L Normal 2.0-7.5 [facility] Comment on above: Order Comment: Order Added by Discern Expert. Performed By: #### 1 7661126, 6715600, 1067180, 6988244, 93981110, 7605549, 9330557, 2867716, 9511873, 76405340, 0019395 #### [facility] [address] [place] [address] BMPon 01-11-2019 Creatinine [Mass/Vol] 0.7 mg/dL Normal 0.5-1.3 [place] Comment on above: Performed By: #### 1 0230551, 9514465, 2800018, 5348516, 37818456, 5129247, 3434013, 2619700, 9055648, 04184051, 8327385 #### [facility] [address] [place] [address] Urea nitrogen [Mass/Vol] 11 mg/dL Normal 5-21 [facility] Comment on above: Performed By: #### 1 4740638, 1617221, 2017606, 8589566, 49896868, 1771014, 1162220, 7226748, 5523441, 90319688, 4637482 #### [facility] [address] [place] [address] Urea nitrogen/Creatinine [Mass ratio] 16 No Units Normal 10-20 [facility] Comment on above: Performed By: #### 1 1058110, 7886692, 4541680, 8363375, 15053970, 9266712, 2096395, 3984927, 1588703, 19070815, 5134125 #### [facility] [address] [place] [address] Anion gap [Moles/Vol] 14 mmol/L Normal 6-16 [place] Comment on above: Performed By: #### 1 9255694, 4278428, 0085059, 8576622, 88867603, 0903922, 2967384, 5419894, 9031335, 71279987, 4630279 #### [facility] [address] [place] [address] Calcium [Mass/Vol] 8.9 mg/dL Normal 8.9-11.1 [facility] Comment on above: Performed By: #### 1 5153491, 3736399, 0478746, 2919027, 75134146, 2837170, 7542432, 2731019, 0217876, 17902097, 7673288 #### [facility] [address] [place] [address] Chloride [Moles/Vol] 107 mmol/L Normal 101-111 [facility] Comment on above: Performed By: #### 1 0032433, 9332852, 9494649, 2947405, 68506501, 0475520, 8332124, 7530952, 8496278, 81499075, 2959394 #### [facility] [address] [place] [address] CO2 [Moles/Vol] 22 mmol/L Normal 21-[address] [facility] Comment on above: Performed By: #### 1 0550899, 2471363, 7316779, 5055417, 88333362, 2024443, 8871547, 4174567, 8531122, 98888210, 5833231 #### [facility] [address] [place] [address] Glucose [Mass/Vol] 122 mg/dL Normal 55-199 [facility] Comment on above: Result Comment: If t his glucose result represents a fasting glucose, interpretation should refer to the following reference range: 55-99 mg/dL Performed By: #### 1 0607231, 2777276, 8229062, 3320462, 24334149, 3647596, 5995537, 2498553, 2729032, 40077700, 8691969 #### [facility] [address] [place] [address] Potassium [Moles/Vol] 3.8 mmol/L Normal 3.5-5.3 [place] Comment on above: Performed By: #### 1 1407808, 7541112, 4757792, 0083678, 36986002, 7343559, 3725488, 4195923, 8659075, 09029149, 4521125 #### [facility] [address] [place] [address] Sodium [Moles/Vol] 139 mmol/L Normal 135-145 [facility] Comment on above: Performed By: #### 1 4899730, 4204427, 3352534, 7934091, 19633018, 3541025, 9806276, 7824567, 2036104, 39213030, 9773343 #### [facility] [address] [place] [address] CBC w/ Auto Diffon 9 Erythrocyte distribution width (RBC) [Ratio] 14.0 % Normal 10.9-14.2 [facility] Comment on above: Performed By: #### 1 6893545, 0900043, 5168370, 8825476, 75704684, 1485132, 4332434, 6599743, 3551244, 57225031, 5352875 #### [facility] [address] [place] [address] Hematocrit (Bld) [Volume fraction] 39.9 % Normal 34.0-46.0 [facility] Comment on above: Performed By: #### 1 6807892, 8376852, 2709469, 7504851, 02802642, 8076614, 0749009, 9525720, 4546311, 13340557, 4636900 #### [facility] [address] [place] [address] Hemoglobin (Bld) [Mass/Vol] 13.5 g/dL Normal 12.0-16.0 [facility] Comment on above: Performed By: #### 1 1494049, 5173304, 5403358, 5741527, 82990390, 6154493, 8280498, 7940756, 5812174, 73311462, 6500323 #### [facility] [address] [place] [address] MCH (RBC) [Entitic mass] 29.4 pg Normal 27.0-34.0 [facility] Comment on above: Performed By: #### 1 4636002, 8949172, 0027024, 3420452, 44126777, 4408968, 2499166, 9661176, 3153955, 67252912, 3522766 #### [facility] [address] [place] [address] MCHC (RBC) [Mass/Vol] 33.7 g/dL Normal 33.3-35.7 [place] Comment on above: Performed By: #### 1 7981742, 5178842, 3779064, 0746662, 57931707, 0562018, 1941905, 7602254, 1482567, 98645641, 7710712 #### [facility] [address] [place] [address] MCV (RBC) [Entitic vol] 87.4 fL Normal 80.0-100.0 [facility] Comment on above: Performed By: #### 1 3243371, 9105881, 1369455, 4528633, 06136162, 9638688, 6716701, 2555119, 2536025, 51450596, 1882746 #### [facility] [address] [place] [address] Platelet mean volume (Bld) [Entitic vol] 8.5 fL Normal 6.4-10.8 [facility] Comment on above: Performed By: #### 1 4027739, 1277348, 8493108, 9156644, 05387735, 1377639, 4097978, 8198286, 4934477, 16409647, 8161686 #### [facility] [address] [place] [address] Platelets (Bld) [#/Vol] 244.0 E9/L Normal 150.0-500.0 [facility] Comment on above: Performed By: #### 1 4339187, 0144362, 8018363, 7376845, 58461975, 9275715, 0213646, 5505735, 2574898, 01411779, 3313035 #### [facility] [address] [place] [address] RBC (Bld) [#/Vol] 4.6 E12/L Normal 4.3-5.9 [facility] Comment on above: Performed By: #### 1 2262272, 0463964, 8200124, 5195070, 84733057, 9895911, 2019473, 5370714, 3193860, 27072960, 3663823 #### [facility] [address] [place] [address] WBC corrected for nucl RBC Auto (Bld) [#/Vol] 7.9 E9/L Normal 4.0-11.[address] [facility] Comment on above: Performed By: #### 1 1714864, 3057485, 5480855, 6489150, 80634412, 8224522, 7211942, 4460052, 2072690, 39426669, 0365335 #### [facility] [address] [place] [address] D-Dimeron 01-11-2019 Fibrin D-dimer FEU (PPP) [Mass/Vol] 265 ng/mL Normal 215-500 [facility] Comment on above: Result Comment: This [...] infections Liver cirrhosis Performed By: #### 1 5084377, 8359659, 9995739, 4869906, 77016165, 9382216, 7896593, 4798752, 8382445, 30237765, 3943040 #### [facility] [address] [place] [address] ED Clinical Summaryon 2018 ED Clinical Summary [address] [address] ED Clinical Summary Person Information Name: ARIADNA HALEY [place] Age: 38 Years : 1980 12:00 AM Sex: Female Language: Indonesian PCP: Charles Nicole DO Marital Status: Single Phone: [phone] Visit Id: Visit Reason: Chest pain; CHEST [...] 01/11/2019 6:42 PM 01/11/2019 6:42 PM ADDRESS: [address] [place] [phone] [facility] DOC NOTES: MEDICAL INFORMATION: Prescriptions Given: PATIENT EDUCATION INFORMATION: Instructions: Smoking Cessation; Chest Pain (Nonspecific) Follow up: With: Address: When: [place] [phone] Business (1) Within 2 to 3 days Comments: Return to ED if symptoms worsen DIAGNOSIS: 1:Chest pain Normal [facility] ED Note-Physicianon 01-12-20 19 ED Note-Physician Basic Information Time Seen: rOin Browne DO 01/11/2019 15:47 Chief Complaint Pt [...] prescription medications Follow-up With When Contact Information [facility] Within 2 to 3 days [address] [phone] Business (1) Additional Instructions: Return to ED [...] Lymph Auto: 28 % (01/11/19 16:46:00 EDT) Yancey Auto: 7 % (01/11/19 16:46:00 EDT) Eos Auto: 1.9 % (01/11/19 16:46:00 EDT) Basophil Auto: 0.8 % (01/11/19 16:46:00 EDT) Neutro Absolute: 4.9 E9/L (01/11/19 16:46:00 EDT) Lymph Absolute: 2.2 E9/L (01/11/19 16:46:00 EDT) Yancey Absolute: 0.6 E9/L (01/11/19 16:46:00 EDT) Eos [...] Results EC01/11/19: SINUS RHYTHM RATE 84, NORMAL ND AND QRS, NO ST ELEVATION OR DEPRSSION, NORMAL AXIS, NORMAL QTC NORMAL ECG Signed By: Orin Browne DO 01/11/2019 15:54:18 Normal [facility] Comment on above: Result Comment: [facility] Signed By: Orin Browne DO\.dyan\Date and Time [...] and skin patches. Some may be available [id number] and others require a prescription. ? Antidepressant [...] Document Reviewed: 08/18/2012 ExitCare? Patient Information ?2014 [employer]. This information is not intended to replace [...] Document Reviewed: 12/13/2008 ExitCare? Patient Information ?2015 [employer]. This information is not intended to replace advice given to you by your health care provider. Make sure you discuss any questions you have with your health care provider. Normal [facility] ED Patient Summaryon 019 ED Patient Summary [place] [address] Patient Discharge Instructions Person Information Name: PRINNIER, ARIADNA B Age: 38 Years Arrival Date: 01/11/2019 3:44 PM Discharge Diagnosis: 1:Chest pain Primary Care Physician: Charles Nicole DO Provider Information Primary Provider: Orin Browne DO [facility] Therapist:None The exam and treatment you received in the Emergency Department were for an urgent problem and are not intended as complete care. It is important that you follow up with a doctor, nurse practitioner, or physician?s congressional assistant for ongoing care. If your symptoms [...] Follow-up Instructions: With: Address: When: Charles Nicole [address] [place] [address] [facility] (1) Within 2 to 3 days [...] opioids can be used to help relieve ufcgmqmr-nm-afvpxb pain and are often prescribed following a [...] be struggling with addiction, tell your health lpn care manager and ask for guidance or call SAMHSA?S National Helpline at 0-403-498-AYZU. v Source: [place] Department of Health and Human Services/Center for Disease Control & Prevention [facility] Medications Given: Medication Dose Route No medications found. Medication Information: Medications to Continue with No Changes Other Medications metformin (metformin 500 mg ER Tab) 250 Milligram By Mouth 2 times a day. Comment: Pharmacy Information: Thank you for choosing [facility] Patient Education Materials: Smoking Cessation Quitting smoking [...] and skin patches. Some may be available [id number]-[id number] and others require a prescription. ? Antidepressant [...] Document Reviewed: 08/18/2012 ExitCare? Patient Information ?2014 [employer]. This information is not intended to replace [...] Document Reviewed: 12/13/2008 ExitCare? Patient Information ?2014 [employer]. This information is not intended to replace advice given to you by your health care provider. Make sure you discuss any questions you have with your health care provider. TERA Dorantes NICOLE B , have received the following patient education materials/instruction s and have verbalized understanding: Patient Education Materials: Smoking Cessation; Chest Pain (Nonspecific) Follow-up Instructions: With: Address: When: [address] [address] Business (1) Within 2 to 3 days Comments: Return to ED if symptoms worsen Prescriptions: Patient Signature Date Clinician/Nurse Signature Date 01/11/19 18:42:28 Normal [facility] Progress Note-Nurseon 2018 Progress Note-Nurse Pt explained discharge instructions and voiced understanding. Pt sts she will follow up with her PCP and denies any furthe questions at this time. Normal [facility] Troponin 0 Hr.on 01-11-2019 Troponin I.cardiac [Mass/Vol] ng/mL Normal <=0.03 [facility] Comment on above: Result Comment: New Troponin Assay 10/05/13 KRISHNA HI Cutoff value > or = 0.03 ng/mL in conjunction with clinical conditions of myocardial infarction. (www.escardio.org/guidelines) Performed By: #### 1 9327134, 8420457, 4093265, 4243105, 91669069, 8454214, 8113522, 3048475, 0234768, 37885451, 0592371 #### [facility] [address] [place] [address] eGFRon 01-11-2019 GFR/1.73 sq M predicted among blacks MDRD (S/P/Bld) [Vol rate/Area] mL/min/{1.73_m2} Normal >=59 [facility] Comment on above: Order Comment: Order added by Discern Expert. Result Comment: eGFR is race adjusted. AA=. Performed By: #### 1 7461976, 1953338, 3251869, 1849888, 02816197, 0799098, 0266490, 7675208, 1057811, 81586422, 9152846 #### [facility] [address] [place] [address] GFR/1.73 sq M predicted among non-blacks MDRD (S/P/Bld) [Vol rate/Area] mL/min/{1.73_m2} Normal >=59 [facility] Comment on above: Order Comment: Order added by Discern Expert. Result Comment: Dance Choreographer anthony kidney disease could be indicated at eGFR's of less than 60 mL/min/1.73m2. Kidney failure is indicated at less than 15 mL/min/1.73m2. Performed By: #### 1 2489215, 5387317, 5779075, 9010346, 49954786, 3125740, 0601674, 9872544, 1800105, 12132382, 6512154 #### [facility] [address] [place] [address] SPINE, LUMBOSACRAL CMPLT(TOOTIE DING)on 12-05-2018 SPINE, LUMBOSACRAL CMPLT(BENDING) Patient Name: ARIADNA HALEY STUDY: SPINE, LUMBOSACRAL; CMPLT(BENDING); 12/05/2018 1:47 pm INDICATION: LUMBAR XR. COMPARISON: None. ACCESSION NUMBER(S): [id number] ORDERING CLINICIAN: KADE RICHARDSON FINDINGS: No lumbar spine fracture. Scattered small endplate osteophytes. Vertebral body and disc space heights are are maintained. 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 No spondylolisthesis. No instability on flexion or extension. IMPRESSION: Degenerative changes of the lumbar spine without instability. Electronically signed by: EARNESTINE MANUEL MD [facility] Coding Summary.on 09-15-2018 Coding Summary. CODING DATE: 09/15/2018 FINAL [facility] DSC STATUS: Home (Routine DC) PAYOR: [...] F17.210 Nicotine dependence, cigarettes, uncomplicated Z79.899 Other long term care social worker (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 However, the narrative phrase printed from the coding software may appear abbreviated, or result in slightly different terminology. Coded By: Luz Judd Date Saved: 09/15/2018 07:15 am Normal [facility] Auto Diffon 09-14-2018 Basophils/100 WBC (Bld) 0.6 % Normal 0.0-2.0 [facility] Comment on above: Order Comment: Order Added by Discern Expert. Performed By: #### 1 3976089, 4421175, 7557385, 5926900, 52338821, 4669067, 9775783, 1732943, 7258417, 17202231, 0022134 #### [facility] [address] [place] [address] Basophils/Leukocytes Auto (Bld) [Pure # fraction] 0.1 E9/L Normal 0.0-0.2 [facility] Comment on above: Order Comment: Order Added by Discern Expert. Performed By: #### 1 4802504, 6270448, 4361467, 8257875, 76856058, 0742085, 1025449, 3886128, 9502025, 40626187, 2298026 #### [facility] [address] [place] [address] Eosinophils/100 WBC (Bld) 2.2 % Normal 0.0-8.0 [facility] Comment on above: Order Comment: Order Added by Discern Expert. Performed By: #### 1 2185518, 1644172, 2858948, 8783342, 92254217, 5571723, 5620565, 1814382, 9923309, 44918084, 5950761 #### [facility] [address] [place] [address] Eosinophils/Leukocytes Auto (Bld) [Pure # fraction] 0.2 E9/L Normal 0.0-0.5 [facility] Comment on above: Order Comment: Order Added by Discern Expert. Performed By: #### 1 2611178, 3488582, 6286430, 2307834, 43483122, 6354806, 6428801, 9105173, 5089111, 71273931, 2651776 #### [facility] [address] [place] [address] Lymphocytes/100 WBC (Bld) 30.6 % Normal 14.0-50.0 [facility] Comment on above: Order Comment: Order Added by Discern Expert. Performed By: #### 1 9714850, 4960421, 1190924, 8371168, 26110793, 3237940, 3193842, 8454416, 8552365, 08544536, 9712055 #### [facility] [address] [place] [address] Lymphocytes/Leukocytes Auto (Bld) [Pure # fraction] 3.0 E9/L Normal 1.0-4.0 [facility] Comment on above: Order Comment: Order Added by Discern Expert. Performed By: #### 1 7431672, 6794867, 5457349, 1894038, 11752669, 2073772, 1435927, 5413646, 3573990, 60167407, 8791604 #### [facility] [address] [place] [address] Monocytes/100 WBC (Bld) 7.2 % Normal 4.0-14.0 [facility] Comment on above: Order Comment: Order Added by Discern Expert. Performed By: #### 1 1477005, 4974090, 6002637, 1392783, 17677650, 0869902, 4669980, 7036955, 7301484, 83675175, 0207265 #### [facility] [address] [place] [address] Monocytes/Leukocytes Auto (Bld) [Pure # fraction] 0.7 E9/L Normal 0.2-1.0 [facility] Comment on above: Order Comment: Order Added by Discern Expert. Performed By: #### 1 0816883, 7087354, 7213300, 3223814, 22165478, 1093977, 3284971, 7421501, 6737303, 32889349, 0151944 #### [facility] [address] [place] [address] Neutrophils/100 WBC (Bld) 59.4 % Normal 36.0-75.0 [facility] Comment on above: Order Comment: Order Added by Discern Expert. Performed By: #### 1 8049971, 0332750, 3817961, 4262826, 51539644, 9197777, 9073367, 0896641, 7389849, 52661484, 5414502 #### [facility] [address] [place] [address] Neutrophils/Leukocytes Auto (Bld) [Pure # fraction] 5.9 E9/L Normal 2.0-7.5 [facility] Comment on above: Order Comment: Order Added by Discern Expert. Performed By: #### 1 6553564, 5805371, 1889720, 0407158, 67786473, 7548544, 1773475, 4040947, 8988748, 40491143, 8506231 #### [facility] [address] [place] [address] [facility] Creatinine [Mass/Vol] 0.6 mg/dL Normal 0.5-1.3 [place] Comment on above: Performed By: #### 1 0576745, 0266615, 0429055, 6342450, 75084215, 3586122, 8430642, 9404944, 7988110, 52374113, 7516435 #### [facility] [address] [place] [address] Urea nitrogen [Mass/Vol] 15 mg/dL Normal 5-21 [facility] Comment on above: Performed By: #### 1 9645380, 0992625, 3738824, 7329451, 85186748, 5625379, 4289821, 5598677, 2908750, 05965138, 0765963 #### [facility] [address] [place] [address] Urea nitrogen/Creatinine [Mass ratio] 25 No Units High 10-20 [facility] Comment on above: Performed By: #### 1 6350096, 9940854, 6045157, 7909357, 78566279, 9476211, 2325643, 5095466, 6217745, 47947945, 3993959 #### [facility] [address] [place] [address] Anion gap [Moles/Vol] 13 mmol/L Normal 6-16 [place] Comment on above: Performed By: #### 1 9727893, 2145500, 5680335, 4459969, 99050410, 9266325, 9786259, 1139170, 9488611, 83917074, 6620644 #### [facility] [address] [place] [address] Calcium [Mass/Vol] 9.5 mg/dL Normal 8.9-11.1 [facility] Comment on above: Performed By: #### 1 6534239, 6177124, 1420080, 8839054, 70442426, 3993194, 8497739, 4897104, 2939835, 43652622, 9193762 #### [facility] [address] [place] [address] Chloride [Moles/Vol] 103 mmol/L Normal 101-111 [facility] Comment on above: Performed By: #### 1 7113458, 0635703, 8621253, 5176027, 55713312, 9242340, 2130198, 3390141, 5430517, 62935636, 3761234 #### [facility] [address] [place] [address] CO2 [Moles/Vol] 24 mmol/L Normal 21-[address] [facility] Comment on above: Performed By: #### 1 4330194, 6647265, 6894705, 3522267, 71174342, 0773258, 6736673, 8634224, 1102813, 31208185, 6317107 #### [facility] [address] [place] [address] Glucose [Mass/Vol] 102 mg/dL Normal 55-199 [facility] Comment on above: Result Comment: If t his glucose result represents a fasting glucose, interpretation should refer to the following reference range: 55-99 mg/dL Performed By: #### 1 2991832, 7638598, 7944174, 1009994, 08504282, 0326864, 5727650, 5912146, 0576879, 32744578, 8226631 #### [facility] [address] [place] [address] Potassium [Moles/Vol] 3.6 mmol/L Normal 3.5-5.3 [place] Comment on above: Performed By: #### 1 9436561, 0427415, 2285873, 7819780, 39472050, 8793860, 0362695, 2809395, 9034459, 26503738, 0572301 #### [facility] [address] [place] [address] Sodium [Moles/Vol] 136 mmol/L Normal 135-145 [facility] Comment on above: Performed By: #### 1 9094737, 0125157, 2225298, 7228151, 58061929, 8106242, 3181406, 2088547, 4652500, 10137135, 3893586 #### [facility] [address] [place] [address] CBC w/ Auto Diffon 9 Erythrocyte distribution width (RBC) [Ratio] 14.2 % Normal 10.9-14.2 [facility] Comment on above: Performed By: #### 1 5951072, 5439374, 4663811, 0357955, 69918664, 7630674, 6146763, 4939445, 1579054, 72670644, 1429235 #### [facility] [address] [place] [address] Hematocrit (Bld) [Volume fraction] 39.4 % Normal 34.0-46.0 [facility] Comment on above: Performed By: #### 1 9307733, 3632718, 3452952, 6620752, 73278460, 9166333, 5645016, 9367827, 5490696, 05479671, 0058157 #### [facility] [address] [place] [address] Hemoglobin (Bld) [Mass/Vol] 13.3 g/dL Normal 12.0-16.0 [facility] Comment on above: Performed By: #### 1 4089311, 9330418, 2756030, 6314647, 04018609, 6955359, 9882488, 0472895, 8714760, 23009830, 1934628 #### [facility] [address] [place] [address] MCH (RBC) [Entitic mass] 29.2 pg Normal 27.0-34.0 [facility] Comment on above: Performed By: #### 1 3723626, 1361195, 1074390, 1432114, 43575570, 9570332, 0430077, 7715987, 3645792, 47439841, 2408842 #### [facility] [address] [place] [address] MCHC (RBC) [Mass/Vol] 33.8 g/dL Normal 33.3-35.7 [place] Comment on above: Performed By: #### 1 3457775, 5474214, 0068683, 5747082, 15133688, 1976367, 0193198, 7970977, 8634295, 50893677, 1700953 #### [facility] [address] [place] [address] MCV (RBC) [Entitic vol] 86.6 fL Normal 80.0-100.0 [facility] Comment on above: Performed By: #### 1 6860231, 1183536, 3549818, 6003163, 49645988, 3784137, 6315419, 4409489, 3899457, 97047925, 0607668 #### [facility] [address] [place] [address] Platelet mean volume (Bld) [Entitic vol] 8.8 fL Normal 6.4-10.8 [facility] Comment on above: Performed By: #### 1 9001077, 1625007, 9058670, 4924588, 26920787, 6371785, 7370563, 1471861, 1059705, 96512872, 3865990 #### [facility] [address] [place] [address] Platelets (Bld) [#/Vol] 307.0 E9/L Normal 150.0-500.0 [facility] Comment on above: Performed By: #### 1 5649374, 5073481, 7426419, 7102796, 53959405, 7128948, 4010254, 5915312, 4417383, 59506047, 7831332 #### [facility] [address] [place] [address] RBC (Bld) [#/Vol] 4.6 E12/L Normal 4.3-5.9 [facility] Comment on above: Performed By: #### 1 6193242, 0833501, 4223687, 8394356, 69657129, 6815656, 9738626, 4794875, 7190571, 70061011, 1208253 #### [facility] [address] [place] [address] WBC corrected for nucl RBC Auto (Bld) [#/Vol] 9.9 E9/L Normal 4.0-11.[address] [facility] Comment on above: Performed By: #### 1 5112882, 8562872, 3786445, 4938307, 34451247, 4936915, 1130503, 8437355, 4195882, 16005968, 0893702 #### [facility] [address] [place] [address] CKon 09-14-2018 CK [Catalytic activity/Vol] 53 Int._Unit/L Normal 14-261 [facility] Comment on above: Performed By: #### 1 2568794, 9590201, 7892030, 0702772, 79868124, 3231012, 9295043, 5548057, 2039282, 68459540, 2574334 #### [facility] [address] [place] [address] ED Clinical Summaryon 2018 ED Clinical Summary [address] [address] ED Clinical Summary Person Information Name: ARIADNA HALEY [place] Age: 37 Years : 1980 12:00 AM Sex: Female Language: Indonesian PCP: Charles Nicole DO Marital Status: Single Phone: [phone] Visit Id: Visit Reason: Anxiety; Paraesthesia; NUMBNESS [...] 09/14/2018 12:17 AM 09/14/2018 12:17 AM ADDRESS: [address] [place] [address] [place] [id number] PHYS DOC NOTES: MEDICAL INFORMATION: Prescriptions Given: Prescription Display gabapentin (gabapentin 100 mg Cap) 100 mg = 1 cap(s), Oral, Daily, X 7 day(s), # 7 cap(s), Refills(s) 0, Pharmacy: [facility] gabapentin (gabapentin 100 mg Cap) 100 mg = 1 cap(s), Oral, Daily, X 7 day(s), # 7 cap(s), Refills(s) 0, Pharmacy: [facility]/pharmacy #6177 magnesium oxide (magnesium oxide 400 mg Tab) 400 mg = 1 tab(s), Oral, Daily, X 7 day(s), # 7 tab(s), Refills(s) 0, Pharmacy: [facility] magnesium oxide (magnesium oxide 400 mg Tab) 400 mg = 1 tab(s), Oral, Daily, X 7 day(s), # 7 tab(s), Refills(s) 0, Pharmacy: [facility]/pharmacy #6177 Home Meds Display metformin (metformin 500 mg ER Tab) 250 mg, Oral, BID, Refills(s) 0 PATIENT EDUCATION INFORMATION: Instructions: Paresthesia, Yumz-no-Uedd; Restless Legs Syndrome Follow up: With: Address: When: Sayda Kelley [address] [address] Business (1) Within 1 to 2 days Comments: neurologist you may also follow up with him With: Address: When: [address] [address] MyPublisher (1) Within 1 to 2 days Comments: Return to ED if symptoms worsen DIAGNOSIS: 1:Restless leg syndrome Normal [facility] ED Note-Nursingon 09-14-2018 ED Note-Nursing Pt up to RR, gait steady. Normal [facility] ED Note-Nursing Aware of need for urine specimen, denies urge at present, states will notify when able to produce sample, will monitor. Normal [facility] ED Note-Physicianon 09-14-20 19 ED Note-Physician Basic [...] 7 cap(s), Refills(s) 0, Pharmacy: [facility]/pharmacy #6177 magnesium oxide, 400 mg = 1 tab(s), Oral, Daily, X 7 day(s), # 7 tab(s), Refills(s) 0, Pharmacy: [facility]/pharmacy #6177 Sodium Chloride 0.9% intravenous solution [...] Sayda Kelley Within 1 to 2 days [place] [address] [place] [address]- Business (1) Additional Instructions: neurologist you may also follow up with him Charles Nicole Within 1 to [address] [place] [address]- Business (1) Additional Instructions: Return to ED if symptoms worsen Patient Education Paresthesia, Fquu-ko-Zocn Restless Legs Syndrome Problem List/Past Medical History [...] Lymph Auto: 30.6 % (09/13/18 23:03:00 EDT) Yancey Auto: 7.2 % (09/13/18 23:03:00 EDT) Eos Auto: 2.2 % (09/13/18 23:03:00 EDT) Basophil Auto: 0.6 % (09/13/18 23:03:00 EDT) Neutro Absolute: 5.9 E9/L (09/13/18 23:03:00 EDT) Lymph Absolute: 3 E9/L (09/13/18 23:03:00 EDT) Yancey Absolute: 0.7 E9/L (09/13/18 23:03:00 EDT) Eos [...] Diagnostic Results No qualifying data available. Normal [facility] Comment on above: Result Comment: Elec [...] Document Reviewed: 01/29/2012 ExitCare? Patient Information ?2015 ExitCare, [facility]. This information is not intended to [...] ? Drawing. ? Crawling. ? Worming. ? [place]. ? Tingling. ? Pins and needles. ? [...] Document Reviewed: 08/06/2011 ExitCare? Patient Information ?2015 [employer]. This information is not intended to replace advice given to you by your health care provider. Make sure you discuss any questions you have with your health care provider. Normal [facility] ED Patient Summaryon 019 ED Patient Summary [place] [id number] Patient Discharge Instructions Person Information Name: ARIADNA HALEY Age: 37 Years Arrival Date: 09/13/2018 10:16 PM Discharge Diagnosis: 1:Restless leg syndrome Primary Care Physician: Charles Nicole DO Provider Information Primary Provider: Génesis Lozoya DO [facility] Therapist:Annette The exam and treatment you received in the Emergency Department were for an urgent problem and are not intended as complete care. It is important that you follow up with a doctor, nurse practitioner, or physician?s congressional assistant for ongoing care. If your symptoms [...] Follow-up Instructions: With: Address: When: Sayda Kelley [facility], [address] [place] [address] Business (1) Within 1 to 2 days Comments: neurologist you may also follow up with him With: Address: When: Charles Nicole [address] [place] [address] Business (1) Within 1 to 2 days Comments: Return to ED if symptoms worsen In the event that this physician does not participate in your insurance network, please consult with your insurance company to find a nearby participating provider. Patient Education Materials: Paresthesia, Jlqp-wm-Rlpb; Restless Legs Syndrome A MESSAGE TO ALL PATIENTS REGARDING OPIOIDS PRESCRIPTION OPIOIDS: WHAT YOU NEED TO KNOW Prescription opioids can be used to help relieve wipxlzqw-wz-omuvph pain and are often prescribed following a [...] be struggling with addiction, tell your health lpn care manager and ask for guidance or call [facility]S National Helpline at 4-353-283-DXCC. k Source: [place] Department of Health and Human Services/Center for Disease Control & Prevention [facility] Medications Given: Medication Dose Route Sodium Chloride 0.9% intravenous solution 1000.00 mL Initial Volume 1000.00 mL/hr IV Piggyback Left Mid Forearm Medication Information: New Medications [id number], [address], [place] [id number], [phone] gabapentin (gabapentin 100 mg Cap) 1 Capsules By Mouth every day for 7 Days. Refills: 0. magnesium oxide (magnesium oxide 400 mg Tab) 1 Tabs By Mouth every day for 7 Days. Refills: 0. [facility], [address], [place] [id number], [phone] gabapentin (gabapentin 100 mg Cap) 1 Capsules By Mouth every day for 7 Days. Refills: 0. magnesium oxide (magnesium oxide 400 mg Tab) 1 Tabs By Mouth every day for 7 Days. Refills: 0. Medications to Continue with No Changes Other Medications metformin (metformin 500 mg ER Tab) 250 Milligram By Mouth 2 times a day. Comment: Pharmacy Information: Thank you for choosing [facility] Patient Education Materials: Paresthesia Paresthesia is a [...] Document Reviewed: 01/29/2012 ExitCare? Patient Information ?2015 [employer]. This information is not intended to replace [...] ? Drawing. ? Crawling. ? Worming. ? [place]. ? Tingling. ? Pins and needles. ? [...] Document Reviewed: 08/06/2011 ExitCare? Patient Information ?2015 [employer]. This information is not intended to replace advice given to you by your health care provider. Make sure you discuss any questions you have with your health care provider. TERA Dorantes NICOLE B , have received the following patient education materials/instruction s and have verbalized understanding: Patient Education Materials: Paresthesia, Xqqn-yg-Qctu; Restless Legs Syndrome Follow-up Instructions: With: Address: When: Sayda Kelley [address] [address] MyPublisher (1) Within 1 to 2 days Comments: neurologist you may also follow up with him With: Address: When: [address] [address] MyPublisher (1) Within 1 to 2 days Comments: Return to ED if symptoms worsen Prescriptions: [gabapentin (gabapentin 100 mg Cap)] [gabapentin (gabapentin 100 mg Cap)] [magnesium oxide (magnesium oxide 400 mg Tab)] [magnesium oxide (magnesium oxide 400 mg Tab)] Patient Signature Date Clinician/Nurse Signature Date 09/14/18 00:21:38 Normal [facility] Hep Func Panelon 09-14-2018 Bilirubin.direct [Mass/Vol] UTC Abnormal 0.1-0.9 [facility] Comment on above: Result Comment: Resu lt verified by Discern Rule. Performed result UTC (Unable to Calculate) was sent as an Alpha code due the inability to calculate a valid numeric value. Performed By: #### 1 7192219, 8071905, 8023040, 6719922, 34594589, 6735304, 5155884, 5352652, 3354245, 67158329, 4297869 #### [facility] [address] [place] [address] Albumin [Mass/Vol] 1.1 g/dL Normal 1.1-2.2 [facility] Comment on above: Performed By: #### 1 4158798, 2087104, 7470620, 3045395, 40262712, 3262529, 4996507, 4009468, 4656678, 32265368, 1936399 #### [facility] [address] [place] [address] Albumin [Mass/Vol] 4.1 g/dL Normal 3.3-5.0 [facility] Comment on above: Performed By: #### 1 0434797, 1898426, 4166602, 7108635, 87097283, 1069116, 9915026, 9999485, 0006605, 89633781, 2912529 #### [facility] [address] [place] [address] ALP [Catalytic activity/Vol] 69 Int._Unit/L Normal 21-98 [facility] Comment on above: Performed By: #### 1 9132609, 4536287, 7724549, 0996345, 48223147, 0778903, 6396643, 7353986, 6686521, 41005788, 0132565 #### [facility] [address] [place] [address] ALT No additional P-5'-P [Catalytic activity/Vol] 27 Int._Unit/L Normal 6-46 [facility] Comment on above: Performed By: #### 1 6415566, 0991118, 1113606, 9547256, 60482169, 1282551, 6494847, 4816663, 9538696, 98214612, 7663252 #### [facility] [address] [place] [address] AST [Catalytic activity/Vol] 16 Int._Unit/L Normal 5-43 [facility] Comment on above: Performed By: #### 1 9581347, 1360311, 8860117, 5459333, 75846354, 8778613, 2973511, 8258880, 2997167, 40589566, 0705191 #### [facility] [address] [place] [address] Bilirubin [Mass/Vol] 0.5 mg/dL Normal 0.0-1.1 [facility] Comment on above: Performed By: #### 1 0028781, 8096267, 2907161, 1048646, 62019394, 9652121, 3180010, 5001898, 7906034, 26250438, 2133731 #### [facility] [address] [place] [address] Bilirubin.direct [Mass/Vol] mg/dL Normal 0.1-0.4 [facility] Comment on above: Performed By: #### 1 0576623, 3492889, 4109613, 1354076, 73027951, 0513202, 5627868, 9817823, 5133696, 65681464, 9556093 #### [facility] [address] [place] [address] Globulin (S) [Mass/Vol] 3.7 g/dL Normal 1.4-4.0 [facility] Comment on above: Performed By: #### 1 4887727, 3738997, 6664303, 8741884, 98409275, 9425105, 2031142, 0138801, 2721865, 35210654, 5392458 #### [facility] [address] [place] [address] Protein [Mass/Vol] 7.8 g/dL Normal 6.0-7.8 [facility] Comment on above: Performed By: #### 1 2707259, 5160160, 8092323, 3304959, 83043931, 4979829, 8124107, 2439860, 7289646, 42134019, 4038079 #### [facility] [address] [place] [address] Magnesiumon 09-14-2018 Magnesium [Mass/Vol] 1.9 mg/dL Normal 1.3-2.4 [facility] Comment on above: Performed By: #### 1 2458526, 3786573, 6786675, 4266389, 79276757, 4370590, 7296211, 4375489, 2036854, 02598438, 4786328 #### [facility] [address] [place] [address] Myoglobinon 09-14-2018 Myoglobin [Mass/Vol] 9 ng/mL Normal <=69 [facility] Comment on above: Performed By: #### 1 0361553, 0926812, 1582907, 6256078, 30072650, 8430109, 0650944, 1997627, 8106569, 31854574, 5790292 #### [facility] [address] [place] [address] PT & PTTon 09-14-2018 aPTT Coag (PPP) [Time] 34.5 second(s) Normal 25.1-36.5 [facility] Comment on above: Result Comment: Hepa rin therapeutic range (represented by Anti-Factor Xa activity of 0.2 - 0.4 U/mL) corresponds to PTT of 56.6 - 109.0 sec. Performed By: #### 1 2289040, 7642084, 8952821, 8755959, 71252235, 1396201, 0136807, 4228712, 9050590, 48580561, 8180895 #### [facility] [address] [place] [address] INR Coag (PPP) [Relative time] 1.0 {INR} [facility] Comment on above: Result Comment: INR results are specifically intended to assess patients stabilized on long-term Anticoagulation therapy suggested INR?s ?Less Intensive Anticoagulation? 2.0 ? 3.0 Conventional Range 3.0 ? 4.5 Performed By: #### 1 0769037, 4911153, 2579964, 7428757, 19994332, 6445339, 1141761, 7971844, 4560732, 51912687, 0932179 #### [facility] [address] [place] [address] PT Coag (PPP) [Time] 11.2 second(s) Normal 10.2-12.9 [facility] Comment on above: Performed By: #### 1 7998621, 7917742, 9612898, 6901933, 76378603, 2114832, 7831787, 5927101, 7321524, 34780009, 5262700 #### [facility] [address] [place] [address] Phosphoruson 09-14-2018 Phosphate [Mass/Vol] 3.8 mg/dL Normal 1.9-4.6 [facility] Comment on above: Performed By: #### 1 1894093, 6654923, 4849080, 8340175, 01916219, 1395394, 0579765, 5856257, 5819954, 13617995, 7391567 #### [facility] [address] [place] [address] Troponin 0 Hr.on 09-14-2018 Troponin I.cardiac [Mass/Vol] ng/mL Normal <=0.03 [facility] Comment on above: Result Comment: New Troponin Assay 5/15/14 KRISHNA HI Cutoff value > or = 0.03 ng/mL in conjunction with clinical conditions of myocardial infarction. ([email or web address].org/guidelines) Performed By: #### 1 4180523, 4902391, 5922591, 3982523, 04559632, 4752977, 6332491, 5998364, 4683138, 46238720, 4575055 #### [facility] [address] [place] [address] UA With Cult Reflexon 2018 Bacteria LM Ql (Urine sed) TRACE Normal Trace [facility] Comment on above: Performed By: #### 1 8848920, 4512758, 7217849, 9320897, 90699468, 2592750, 1170610, 3844765, 2612362, 24637330, 5295755 #### [facility] [address] [place] [address] Bilirubin Ql (U) Negative Normal Negative [facility] Comment on above: Performed By: #### 1 5039947, 6980268, 8587430, 3376859, 39645315, 4778271, 3447416, 5655070, 9442411, 55258164, 1599968 #### [facility] [address] [place] [address] Clarity (U) CLEAR Normal Clear [facility] Comment on above: Performed By: #### 1 3871626, 2821373, 3521734, 3628227, 84785920, 7921999, 7425997, 8661664, 9564550, 98574036, 0213021 #### [facility] [address] [place] [address] Color (U) YELLOW Normal Yellow [facility] Comment on above: Performed By: #### 1 6065486, 9476842, 6978010, 1220605, 55022355, 6185212, 3720750, 2956849, 2882175, 12296271, 5792540 #### [facility] [address] [place] [address] Epithelial cells.squamous LM.HPF (Urine sed) [#/Area] 0-2 Normal 0-2 [facility] Comment on above: Performed By: #### 1 9388180, 0529667, 8993451, 3910107, 76852849, 5642656, 8087664, 3866982, 2861671, 36110028, 1104918 #### [facility] [address] [place] [address] Glucose Test strip (U) [Mass/Vol] Negative Normal Negative [facility] Comment on above: Performed By: #### 1 8412176, 2777914, 9810181, 3553616, 02259285, 1374377, 4045317, 3029204, 2182821, 47748714, 4518555 #### [facility] [address] [place] [address] Hemoglobin Ql (U) Negative Normal Negative [facility] Comment on above: Performed By: #### 1 3359789, 8158995, 0694098, 2690597, 67631193, 2491782, 4322085, 5859950, 1454616, 21900067, 0868807 #### [facility] [address] [place] [address] Ketones (U) [Mass/Vol] Negative Normal Negative [facility] Comment on above: Performed By: #### 1 4113727, 6447859, 0474553, 6777075, 88817639, 0980361, 2758585, 5033997, 3156586, 29729205, 0635027 #### [facility] [address] [place] [address] [place].plasma/[place] .RBC (Bld) [Mass ratio] 0-3 Normal 0-3 [facility] Comment on above: Performed By: #### 1 9411447, 9148736, 5922938, 5515678, 44588389, 3185685, 6273953, 0034102, 9791981, 64521001, 2486036 #### [facility] [address] [place] [address] Mucus Ql (Urine sed) TRACE Normal Fish er [facility] Comment on above: Performed By: #### 1 1003585, 3350136, 7269449, 0068467, 81432374, 5591799, 0789056, 8433101, 1500276, 36853302, 6001513 #### [facility] [address] [place] [address] Nitrite Ql (U) Negative Normal Negative [facility] Comment on above: Performed By: #### 1 4496981, 9683401, 9328448, 9928943, 45100312, 2141683, 2435278, 4442740, 0270504, 21409431, 1950398 #### [facility] [address] [place] [address] pH (U) 6.0 [pH] 5.0-9.0 [facility] Comment on above: Performed By: #### 1 6934198, 6876019, 6427850, 4033544, 73319926, 8672236, 4103005, 2516702, 7395053, 06322944, 4051070 #### [facility] [address] [place] [address] Protein (U) [Mass/Vol] Negative Normal Negative [facility] Comment on above: Performed By: #### 1 5854260, 3993816, 3173950, 9158360, 04857449, 2181917, 7982593, 9888637, 4927297, 16249456, 9457088 #### [facility] [address] [place] [address] Specific gravity (U) [Rel density] 1.010 1.005-1.030 [facility] Comment on above: Performed By: #### 1 5769070, 6460249, 3120179, 7666979, 71896852, 8383981, 7442663, 8873356, 7734982, 69058031, 4063782 #### [facility] [address] [place] [address] UA Spec Desc Clean Catch Normal [facility] Comment on above: Performed By: #### 1 4641057, 6191671, 2886351, 0373249, 26615481, 7439456, 4844506, 3094508, 1439493, 08779868, 3294672 #### [facility] [address] [place] [address] Urobilinogen Qn (U) 0.2 {Carmella'U}/dL Normal 0.0-1.0 [facility] Comment on above: Performed By: #### 1 6024481, 8367826, 7490706, 2434582, 64112395, 6124380, 2086640, 8490548, 1787926, 12485803, 4501039 #### [facility] [address] [place] [address] WBC Auto Ql (U) Negative Normal Negative [facility] Comment on above: Performed By: #### 1 1656120, 4029381, 7204526, 8434850, 29248521, 3479079, 4149832, 5726084, 8164308, 91201655, 4022023 #### [facility] [address] [place] [address] WBC LM.HPF (Urine sed) [#/Area] 0-5 Normal 0-5 [facility] Comment on above: Performed By: #### 1 5814385, 7828027, 5509846, 6300229, 96465929, 8323631, 6413523, 8614197, 7765414, 59192152, 8165800 #### [facility] [address] [place] [address] XR Chest Single Viewon 09-14 XR Chest [...] M.D. Transcribed by: minoo Technologist: JESSICA Normal [facility] XR FOOT LEFT (MIN 3 VIEWS)on 09-14-2018 XR FOOT LEFT (MIN 3 VIEWS) Radiology exam is complete. No Radiologist dictation. Please follow up with ordering provider. Final result Normal [facility] XR FOOT RIGHT (MIN 3 VIEWS)o n 09-14-2018 XR FOOT RIGHT (MIN 3 VIEWS) Radiology exam is complete. No Radiologist dictation. Please follow up with ordering provider. Final result Normal [facility] eGFRon 09-14-2018 GFR/1.73 sq M predicted among blacks MDRD (S/P/Bld) [Vol rate/Area] mL/min/{1.73_m2} Normal >=59 [facility] Comment on above: Order Comment: Order added by Discern Expert. Result Comment: eGFR is race adjusted. AA=. Performed By: #### 1 3177476, 6437769, 5089762, 8255773, 24589898, 6812715, 1956852, 5069942, 2881028, 54217838, 8806427 #### [facility] [address] [place] [address] GFR/1.73 sq M predicted among non-blacks MDRD (S/P/Bld) [Vol rate/Area] mL/min/{1.73_m2} Normal >=59 [facility] Comment on above: Order Comment: Order added by Discern Expert. Result Comment: Dance Choreographer anthony kidney disease could be indicated at eGFR's of less than 60 mL/min/1.73m2. Kidney failure is indicated at less than 15 mL/min/1.73m2. Performed By: #### 1 6625392, 7494784, 8978226, 1643865, 29430167, 6827842, 7998493, 5802869, 5978965, 58341526, 5408529 #### [facility] [address] [place] [address] Vital Signs Date Time Vital Sign Value Performing Clinician Facility 02-28-2025 13:34-0400 Body height 170.18 cm Gay Britt MANAGER RELIABILITY-C Work Phone: [facility] 02-28-2025 13:34-0400 Body mass index (BMI) [Ratio] 43.8 kg/m2 Gay Britt MANAGER RELIABILITY-C Work Phone: [facility] 02-28-2025 13:34-0400 Body weight 127 kg Gay Britt MANAGER RELIABILITY-C Work Phone: [facility] 02-28-2025 13:34-0400 Diastolic blood pressure 70 mm[Hg] Gay Britt MANAGER RELIABILITY-C Work Phone: [facility] 02-28-2025 13:34-0400 Heart rate 99 /min Gay Britt MANAGER RELIABILITY-C Work Phone: [facility] 02-28-2025 13:34-0400 Respiratory rate 18 /min Gay Britt MANAGER RELIABILITY-C Work Phone: [facility] 02-28-2025 13:34-0400 SaO2% (BldA) [Mass fraction] 95 % Gay Johnmer MANAGER RELIABILITY-C Work Phone: [facility] 02-28-2025 13:34-0400 Systolic blood pressure 118 mm[Hg] Gay Britt MANAGER RELIABILITY-C Work Phone: [facility] 02-28-2025 09:25-0400 Body height 170.2 cm Terence Pacheco MD Work Phone: [facility] 02-28-2025 09:25-0400 Body mass index (BMI) [Ratio] 45.58 kg/m2 Terence Pacheco MD Work Phone: [facility] 02-28-2025 09:25-0400 Body weight 132 kg Terence Pacheco MD Work Phone: [facility] 02-28-2025 09:25-0400 Diastolic blood pressure 78 mm[Hg] Terence Pacheco MD Work Phone: [facility] 02-28-2025 09:25-0400 Systolic blood pressure 120 mm[Hg] Terence Pacheco MD Work Phone: [facility] 02-14-2025 09:42-0400 Body height 170.18 cm Gay Britt MANAGER RELIABILITY-C Work Phone: [facility] 02-14-2025 09:42-0400 Diastolic blood pressure 76 mm[Hg] Gay Britt MANAGER RELIABILITY-C Work Phone: [facility] 02-14-2025 09:42-0400 Heart rate 65 /min Gay Britt MANAGER RELIABILITY-C Work Phone: [facility] 02-14-2025 09:42-0400 SaO2% (BldA) [Mass fraction] 97 % Gay Britt MANAGER RELIABILITY-C Work Phone: [facility] 02-14-2025 09:42-0400 Systolic blood pressure 118 mm[Hg] Gay Britt MANAGER RELIABILITY-C Work Phone: [facility] 01-31-2025 11:40-0400 Diastolic blood pressure 80 mm[Hg] Gay Britt MANAGER RELIABILITY-C Work Phone: [facility] 01-31-2025 11:40-0400 Heart rate 86 /min Gay Britt MANAGER RELIABILITY-C Work Phone: [facility] 01-31-2025 11:40-0400 Respiratory rate 18 /min Gay Britt MANAGER RELIABILITY-C Work Phone: [facility] 01-31-2025 11:40-0400 SaO2% (BldA) [Mass fraction] 94 % Gay Britt MANAGER RELIABILITY-C Work Phone: [facility] 01-31-2025 11:40-0400 Systolic blood pressure 116 mm[Hg] Gay Britt MANAGER RELIABILITY-C Work Phone: [facility] 01-31-2025 10:11-0400 Body height 170.18 cm Gay Britt MANAGER RELIABILITY-C Work Phone: [facility] 01-31-2025 10:11-0400 Body weight 127 kg Gay Britt MANAGER RELIABILITY-C Work Phone: [facility] 01-24-2025 14:20-0400 Diastolic blood pressure 68 mm[Hg] Chair Sibley Work Phone: [facility] 01-24-2025 14:20-0400 Heart rate 82 /min Chair Sibley Work Phone: [facility] 01-24-2025 14:20-0400 Respiratory rate 18 /min Chair Gabbi Work Phone: [facility] 01-24-2025 14:20-0400 SaO2% (BldA) [Mass fraction] 98 % Chair Gabbi Work Phone: [facility] 01-24-2025 14:20-0400 Systolic blood pressure 111 mm[Hg] Chair Sibley Work Phone: [facility] 01-24-2025 10:42-0400 Body temperature 97.81 [degF] Chair Gabbi Work Phone: [facility] 01-17-2025 10:38-0400 Body height 170.18 cm Gayomer Jonhmer MANAGER RELIABILITY-C Work Phone: [facility] 01-17-2025 10:38-0400 Diastolic blood pressure 62 mm[Hg] Gay Johnmer MANAGER RELIABILITY-C Work Phone: [facility] 01-17-2025 10:38-0400 Heart rate 92 /min Gay Johnmer MANAGER RELIABILITY-C Work Phone: [facility] 01-17-2025 10:38-0400 SaO2% (BldA) [Mass fraction] 96 % Gay Johnmer MANAGER RELIABILITY-C Work Phone: [facility] 01-17-2025 10:38-0400 Systolic blood pressure 108 mm[Hg] Gay Johnmer MANAGER RELIABILITY-C Work Phone: [facility] 01-11-2025 13:51-0400 Body temperature 98.29 [degF] Chair Sibley Work Phone: [facility] 01-11-2025 13:51-0400 Diastolic blood pressure 91 mm[Hg] Chair Sibley Work Phone: [facility] 01-11-2025 13:51-0400 Heart rate 76 /min Chair Sibley Work Phone: [facility] 01-11-2025 13:51-0400 Respiratory rate 20 /min Chair Sibley Work Phone: [facility] 01-11-2025 13:51-0400 SaO2% (BldA) [Mass fraction] 98 % Chair Sibley Work Phone: [facility] 01-11-2025 13:51-0400 Systolic blood pressure 146 mm[Hg] Chair Sibley Work Phone: [facility] 12-14-2024 14:10-0400 Diastolic blood pressure 71 mm[Hg] Chair Sibley Work Phone: [facility] 12-14-2024 14:10-0400 Heart rate 83 /min Chair Gabbi Work Phone: [facility] 12-14-2024 14:10-0400 Respiratory rate 18 /min Chair Gabbi Work Phone: [facility] 12-14-2024 14:10-0400 SaO2% (BldA) [Mass fraction] 96 % Chair Sibley Work Phone: [facility] 12-14-2024 14:10-0400 Systolic blood pressure 128 mm[Hg] Chair Gabbi Work Phone: [facility] 12-12-2024 10:45-0400 Body height 170.18 cm Gay Enciso MANAGER RELIABILITY-C Work Phone: [facility] 12-12-2024 10:45-0400 Body mass index (BMI) [Ratio] 44.8 kg/m2 Gay Enciso MANAGER RELIABILITY-C Work Phone: [facility] 12-12-2024 10:45-0400 Body weight 129.72 kg Gay Britt MANAGER RELIABILITY-C Work Phone: [facility] 12-12-2024 10:45-0400 Diastolic blood pressure 71 mm[Hg] Gay Britt MANAGER RELIABILITY-C Work Phone: [facility] 12-12-2024 10:45-0400 Heart rate 63 /min Gay Britt MANAGER RELIABILITY-C Work Phone: [facility] 12-12-2024 10:45-0400 Systolic blood pressure 109 mm[Hg] Gay Britt MANAGER RELIABILITY-C Work Phone: [facility] 11-30-2024 09:08-0400 Diastolic blood pressure 84 mm[Hg] Gay Britt MANAGER RELIABILITY-C Work Phone: [facility] 11-30-2024 09:08-0400 Heart rate 64 /min Gay Britt MANAGER RELIABILITY-C Work Phone: [facility] 11-30-2024 09:08-0400 SaO2% (BldA) [Mass fraction] 98 % Gayomer Johnmer MANAGER RELIABILITY-C Work Phone: [facility] 11-30-2024 09:08-0400 Systolic blood pressure 120 mm[Hg] Gay Britt MANAGER RELIABILITY-C Work Phone: [facility] 11-29-2024 14:46-0400 Body temperature 97.81 [degF] Chair Sibley Work Phone: [facility] 11-29-2024 14:46-0400 Diastolic blood pressure 73 mm[Hg] Chair Sibley Work Phone: [facility] 11-29-2024 14:46-0400 Heart rate 77 /min Chair Gabbi Work Phone: [facility] 11-29-2024 14:46-0400 Respiratory rate 18 /min Chair Gabbi Work Phone: [facility] 11-29-2024 14:46-0400 SaO2% (BldA) [Mass fraction] 98 % Chair Sibley Work Phone: [facility] Comment on above: RA 11-29-2024 14:46-0400 Systolic blood pressure 122 mm[Hg] Chair Reese Work Phone: [facility] 11-29-2024 09:13-0400 Body height 170.2 cm Vaibhav Deven DIGITAL PRODUCT SPECIALIST.[employer]AND [employer]ER Work Phone: [facility] 11-29-2024 09:13-0400 Body mass index (BMI) [Ratio] 45.12 kg/m2 Vaibhav Deven DIGITAL PRODUCT SPECIALIST.RAND T[employer]ER Work Phone: [facility] 11-29-2024 09:13-0400 Body temperature 97.5 [degF] Vaibhav Deven DIGITAL PRODUCT SPECIALIST.RAND T[employer]ER Work Phone: [facility] 11-29-2024 09:13-0400 Body weight 130.7 kg Vaibhav Deven DIGITAL PRODUCT SPECIALIST.RAND T[employer]ER Work Phone: [facility] 11-29-2024 09:13-0400 Diastolic blood pressure 57 mm[Hg] Vaibhav Deven DIGITAL PRODUCT SPECIALIST.RAND T[employer]ER Work Phone: [facility] 11-29-2024 09:13-0400 Heart rate 88 /min Vaibhav Deven DIGITAL PRODUCT SPECIALIST.RAND T[employer]ER Work Phone: [facility] 11-29-2024 09:13-0400 Respiratory rate 18 /min Vaibhav Deven DIGITAL PRODUCT SPECIALIST.RAND T[employer]ER Work Phone: [facility] 11-29-2024 09:13-0400 SaO2% (BldA) [Mass fraction] 98 % Vaibhav Deven DIGITAL PRODUCT SPECIALIST.RAND T[employer]ER Work Phone: [facility] 11-29-2024 09:13-0400 Systolic blood pressure 113 mm[Hg] Vaibhav Deven DIGITAL PRODUCT SPECIALIST.RAND [employer]ER Work Phone: [facility] 11-16-2024 13:47-0400 Body temperature 98.01 [degF] Chair Reese Work Phone: [facility] 11-16-2024 13:47-0400 Diastolic blood pressure 70 mm[Hg] Chair Gabbi Work Phone: [facility] 11-16-2024 13:47-0400 Heart rate 89 /min Chair Gabbi Work Phone: [facility] 11-16-2024 13:47-0400 Respiratory rate 20 /min Chair Sibley Work Phone: [facility] 11-16-2024 13:47-0400 SaO2% (BldA) [Mass fraction] 97 % Chair Sibley Work Phone: [facility] 11-16-2024 13:47-0400 Systolic blood pressure 101 mm[Hg] Chair Sibley Work Phone: [facility] 11-13-2024 11:17-0400 Body height 170.18 cm Gayomer Johnmer MANAGER RELIABILITY-C Work Phone: [facility] 11-13-2024 11:17-0400 Body mass index (BMI) [Ratio] 44.1 kg/m2 Gayomer Johnmer MANAGER RELIABILITY-C Work Phone: [facility] 11-13-2024 11:17-0400 Body weight 127.91 kg Gay Britt MANAGER RELIABILITY-C Work Phone: [facility] 11-13-2024 11:17-0400 Diastolic blood pressure 78 mm[Hg] Gayomer Johnmer MANAGER RELIABILITY-C Work Phone: [facility] 11-13-2024 11:17-0400 Heart rate 96 /min Gayomer Johnmer MANAGER RELIABILITY-C Work Phone: [facility] 11-13-2024 11:17-0400 Systolic blood pressure 104 mm[Hg] Gay Britt MANAGER RELIABILITY-C Work Phone: [facility] 10-31-2024 14:46-0400 Diastolic blood pressure 76 mm[Hg] Chair Sibley Work Phone: [facility] 10-31-2024 14:46-0400 Heart rate 68 /min Chair Gabbi Work Phone: [facility] 10-31-2024 14:46-0400 Respiratory rate 20 /min Chair Gabbi Work Phone: [facility] 10-31-2024 14:46-0400 SaO2% (BldA) [Mass fraction] 94 % Chair Gabbi Work Phone: [facility] Comment on above: RA 10-31-2024 14:46-0400 Systolic blood pressure 133 mm[Hg] Chair Sibley Work Phone: [facility] 10-31-2024 09:19-0400 Body temperature 97.81 [degF] Chair Sibley Work Phone: [facility] 2024 14:16-0400 Body mass index (BMI) [Ratio] 44.01 kg/m2 Chair Sibley Work Phone: [facility] 2024 14:16-0400 Body temperature 97.59 [degF] Chair Gabbi Work Phone: [facility] 2024 14:16-0400 Body weight 127.5 kg Chair Gabbi Work Phone: [facility] 2024 14:16-0400 Diastolic blood pressure 78 mm[Hg] Chair Sibley Work Phone: [facility] 2024 14:16-0400 Heart rate 85 /min Chair Gabbi Work Phone: [facility] 2024 14:16-0400 Respiratory rate 16 /min Chair Gabbi Work Phone: [facility] 2024 14:16-0400 SaO2% (BldA) [Mass fraction] 96 % Chair Sibley Work Phone: [facility] 2024 14:16-0400 Systolic blood pressure 113 mm[Hg] Chair Gabbi Work Phone: [facility] 10-02-2024 14:15-0400 Body temperature 98.29 [degF] Chair Gabbi Work Phone: [facility] 10-02-2024 14:15-0400 Diastolic blood pressure 80 mm[Hg] Chair Gabbi Work Phone: [facility] 10-02-2024 14:15-0400 Heart rate 76 /min Chair Sibley Work Phone: [facility] 10-02-2024 14:15-0400 Respiratory rate 16 /min Chair Gabbi Work Phone: [facility] 10-02-2024 14:15-0400 SaO2% (BldA) [Mass fraction] 97 % Chair Sibley Work Phone: [facility] 10-02-2024 14:15-0400 Systolic blood pressure 129 mm[Hg] Chair Gabbi Work Phone: [facility] 09-18-2024 13:20-0400 Body temperature 97.59 [degF] Chair Sibley Work Phone: [facility] 09-18-2024 13:20-0400 Diastolic blood pressure 84 mm[Hg] Chair Gabbi Work Phone: [facility] 09-18-2024 13:20-0400 Heart rate 107 /min Chair Sibley Work Phone: [facility] 09-18-2024 13:20-0400 Respiratory rate 18 /min Chair Sibley Work Phone: [facility] 09-18-2024 13:20-0400 SaO2% (BldA) [Mass fraction] 97 % Chair Sibley Work Phone: [facility] 09-18-2024 13:20-0400 Systolic blood pressure 115 mm[Hg] Chair Sibley Work Phone: [facility] 09-06-2024 16:17-0400 Heart rate 90 /min Gay Enciso NP-C Work Phone: [facility] 09-06-2024 16:17-0400 SaO2% (BldA) [Mass fraction] 97 % Gay Enciso MANAGER RELIABILITY-C Work Phone: [facility] 09-06-2024 13:54-0400 Diastolic blood pressure 69 mm[Hg] Chair Sibley Work Phone: [facility] 09-06-2024 13:54-0400 Heart rate 90 /min Chair Sibley Work Phone: [facility] 09-06-2024 13:54-0400 Respiratory rate 18 /min Chair Gabbi Work Phone: [facility] 09-06-2024 13:54-0400 SaO2% (BldA) [Mass fraction] 97 % Chair Sibley Work Phone: [facility] 09-06-2024 13:54-0400 Systolic blood pressure 110 mm[Hg] Chair Sibley Work Phone: [facility] 09-06-2024 08:43-0400 Body height 170.2 cm Vaibhav Deven DIGITAL PRODUCT SPECIALIST.RAND T[employer]ER Work Phone: [facility] 09-06-2024 08:43-0400 Body mass index (BMI) [Ratio] 45.5 kg/m2 Vaibhav Deven DIGITAL PRODUCT SPECIALIST.RAND [employer]ER Work Phone: [facility] 09-06-2024 08:43-0400 Body temperature 97.5 [degF] Vaibhav Deven DIGITAL PRODUCT SPECIALIST.RAND T[employer]ER Work Phone: [facility] 09-06-2024 08:43-0400 Body weight 131.8 kg Vaibhav Deven DIGITAL PRODUCT SPECIALIST.RAND T[employer]ER Work Phone: [facility] 09-06-2024 08:43-0400 Diastolic blood pressure 64 mm[Hg] Vaibhav Deven DIGITAL PRODUCT SPECIALIST.RAND T[employer]ER Work Phone: [facility] 09-06-2024 08:43-0400 Heart rate 77 /min Vaibhav Deven DIGITAL PRODUCT SPECIALIST.RAND T[employer]ER Work Phone: [facility] 09-06-2024 08:43-0400 Respiratory rate 18 /min Vaibhav Carvalho DIGITAL PRODUCT SPECIALIST.RAND [employer]ER Work Phone: [facility] 09-06-2024 08:43-0400 SaO2% (BldA) [Mass fraction] 97 % Vaibhav Carvalho DIGITAL PRODUCT SPECIALIST.RAND T[employer]ER Work Phone: [facility] 09-06-2024 08:43-0400 Systolic blood pressure 116 mm[Hg] Vaibhav Carvalho DIGITAL PRODUCT SPECIALIST.RAND T[employer]ER Work Phone: [facility] 09-04-2024 15:04-0400 Body height 170.2 cm Gordo Barfield MD Work Phone: [facility] 09-04-2024 15:04-0400 Body mass index (BMI) [Ratio] 44.32 kg/m2 Gordo Barfield MD Work Phone: [facility] 09-04-2024 15:04-0400 Body weight 128.37 kg Gordo Barfield MD Work Phone: [facility] 09-04-2024 15:04-0400 Diastolic blood pressure 73 mm[Hg] Gordo Barfield MD Work Phone: [facility] 09-04-2024 15:04-0400 Heart rate 101 /min Gordo Barfield MD Work Phone: [facility] 09-04-2024 15:04-0400 Systolic blood pressure 112 mm[Hg] Gordo Barfield MD Work Phone: [facility] 08-08-2024 14:36-0400 Diastolic blood pressure 87 mm[Hg] Chair Sibley Work Phone: [facility] 08-08-2024 14:36-0400 Heart rate 83 /min Chair Sibley Work Phone: [facility] 08-08-2024 14:36-0400 Respiratory rate 18 /min Chair Gabbi Work Phone: [facility] 08-08-2024 14:36-0400 SaO2% (BldA) [Mass fraction] 97 % Chair Gabbi Work Phone: [facility] 08-08-2024 14:36-0400 Systolic blood pressure 129 mm[Hg] Chair Gabbi Work Phone: [facility] 08-08-2024 10:54-0400 Body temperature 98.01 [degF] Chair Gabbi Work Phone: [facility] 07-31-2024 16:05-0400 Diastolic blood pressure 70 mm[Hg] Gay Britt MANAGER RELIABILITY-C Work Phone: [facility] 07-31-2024 16:05-0400 Heart rate 108 /min Gay Britt MANAGER RELIABILITY-C Work Phone: [facility] 07-31-2024 16:05-0400 SaO2% (BldA) [Mass fraction] 96 % Gay Britt MANAGER RELIABILITY-C Work Phone: [facility] 07-31-2024 16:05-0400 Systolic blood pressure 104 mm[Hg] Gay Britt MANAGER RELIABILITY-C Work Phone: [facility] 07-26-2024 15:06-0500 Body height 170.2 cm Lois Holm MD Work Phone: [facility] 07-26-2024 15:06-0500 Body mass index (BMI) [Ratio] 44.92 kg/m2 Lois Holm MD Work Phone: [facility] 07-26-2024 15:06-0500 Body weight 130.09 kg Lois Holm MD Work Phone: [facility] 07-26-2024 15:06-0500 Diastolic blood pressure 60 mm[Hg] Lois Holm MD Work Phone: [facility] 07-26-2024 15:06-0500 Heart rate 84 /min Lois Holm MD Work Phone: [facility] 07-26-2024 15:06-0500 Systolic blood pressure 100 mm[Hg] Lois Holm MD Work Phone: [facility] 07-19-2024 11:27-0500 Diastolic blood pressure 90 mm[Hg] Gayomer Johnmer MANAGER RELIABILITY-C Work Phone: [facility] 07-19-2024 11:27-0500 Heart rate 78 /min Gay Britt MANAGER RELIABILITY-C Work Phone: [facility] 07-19-2024 11:27-0500 Respiratory rate 16 /min Gay Britt MANAGER RELIABILITY-C Work Phone: [facility] 07-19-2024 11:27-0500 SaO2% (BldA) [Mass fraction] 96 % Gay Britt MANAGER RELIABILITY-C Work Phone: [facility] 07-19-2024 11:27-0500 Systolic blood pressure 126 mm[Hg] Gay Britt MANAGER RELIABILITY-C Work Phone: [facility] 07-19-2024 09:54-0500 Body height 170.18 cm Gay Britt MANAGER RELIABILITY-C Work Phone: [facility] 07-19-2024 09:54-0500 Body weight 127 kg Gay Britt MANAGER RELIABILITY-C Work Phone: [facility] 07-12-2024 14:16-0500 Body temperature 96.91 [degF] Marky WARREN-C Work Phone: [facility] 07-11-2024 14:30-0500 Body temperature 97.39 [degF] Chair Gabbi Work Phone: [facility] 07-11-2024 14:30-0500 Diastolic blood pressure 80 mm[Hg] Chair Gabbi Work Phone: [facility] 07-11-2024 14:30-0500 Heart rate 69 /min Chair Sibley Work Phone: [facility] 07-11-2024 14:30-0500 Respiratory rate 18 /min Chair Sibley Work Phone: [facility] 07-11-2024 14:30-0500 SaO2% (BldA) [Mass fraction] 98 % Chair Sibley Work Phone: [facility] 07-11-2024 14:30-0500 Systolic blood pressure 119 mm[Hg] Chair Sibley Work Phone: [facility] 07-10-2024 15:25-0500 Diastolic blood pressure 70 mm[Hg] [facility] 07-10-2024 15:25-0500 Heart rate 106 /min [facility] 07-10-2024 15:25-0500 SaO2% (BldA) [Mass fraction] 97 % [facility] 07-10-2024 15:25-0500 Systolic blood pressure 102 mm[Hg] [facility] 06-13-2024 14:55-0500 Diastolic blood pressure 56 mm[Hg] Chair Gabbi Work Phone: [facility] 06-13-2024 14:55-0500 Heart rate 70 /min Chair Sibley Work Phone: [facility] 06-13-2024 14:55-0500 Respiratory rate 18 /min Chair Sibley Work Phone: [facility] 06-13-2024 14:55-0500 SaO2% (BldA) [Mass fraction] 98 % Chair Gabbi Work Phone: [facility] 06-13-2024 14:55-0500 Systolic blood pressure 93 mm[Hg] Chair Sibley Work Phone: [facility] 06-13-2024 08:55-0500 Body mass index (BMI) [Ratio] 45.08 kg/m2 Vaibhav Carvalho APRN.[employer]AND [employer]ER Work Phone: [facility] 06-13-2024 08:55-0500 Body temperature 97.59 [degF] Vaibhav Carvalho APRN.RAND T[employer]ER Work Phone: [facility] 06-13-2024 08:55-0500 Body weight 130.6 kg Vaibhav Deven DIGITAL PRODUCT SPECIALIST.[employer]ER Work Phone: [facility] 06-13-2024 08:55-0500 Diastolic blood pressure 71 mm[Hg] Vaibhav Deven DIGITAL PRODUCT SPECIALIST.R[employer]ER Work Phone: [facility] 06-13-2024 08:55-0500 Heart rate 79 /min Vaibhav Deven DIGITAL PRODUCT SPECIALIST.RAND [employer]ER Work Phone: [facility] 06-13-2024 08:55-0500 Respiratory rate 16 /min Vaibhav Deven DIGITAL PRODUCT SPECIALIST.RAND T[employer]ER Work Phone: [facility] 06-13-2024 08:55-0500 SaO2% (BldA) [Mass fraction] 98 % Vaibhav Deven DIGITAL PRODUCT SPECIALIST.RAND T[employer]ER Work Phone: [facility] 06-13-2024 08:55-0500 Systolic blood pressure 106 mm[Hg] Vaibhav Deven DIGITAL PRODUCT SPECIALIST.R[employer] T[employer]ER Work Phone: [facility] 06-06-2024 11:37-0500 Body mass index (BMI) [Ratio] 45.08 kg/m2 Oly WARREN Work Phone: [facility] 06-06-2024 11:37-0500 Body weight 130.54 kg Oly WARREN Work Phone: [facility] 06-06-2024 11:37-0500 Diastolic blood pressure 70 mm[Hg] Oly WARREN Work Phone: [facility] 06-06-2024 11:37-0500 Systolic blood pressure 120 mm[Hg] Oly WARREN Work Phone: [facility] 05-19-2024 15:02-0500 Body temperature 97.3 [degF] Chair Gabbi Work Phone: [facility] 05-19-2024 15:02-0500 Diastolic blood pressure 63 mm[Hg] Chair Gabbi Work Phone: [facility] 05-19-2024 15:02-0500 Heart rate 73 /min Chair Sibley Work Phone: [facility] 05-19-2024 15:02-0500 Respiratory rate 20 /min Chair Sibley Work Phone: [facility] 05-19-2024 15:02-0500 SaO2% (BldA) [Mass fraction] 98 % Chair Sibley Work Phone: [facility] Comment on above: RA 05-19-2024 15:02-0500 Systolic blood pressure 114 mm[Hg] Chair Gabbi Work Phone: [facility] 04-26-2024 09:31-0500 Body temperature 97.59 [degF] Ma Sand Work Phone: [facility] 04-26-2024 09:31-0500 Diastolic blood pressure 78 mm[Hg] Ma Sand Work Phone: [facility] Comment on above: Manual 04-26-2024 09:31-0500 Heart rate 66 /min Ma Sand Work Phone: [facility] 04-26-2024 09:31-0500 Respiratory rate 16 /min Ma Sand Work Phone: [facility] 04-26-2024 09:31-0500 SaO2% (BldA) [Mass fraction] 99 % Ma Sand Work Phone: [facility] 04-26-2024 09:31-0500 Systolic blood pressure 122 mm[Hg] Ma Sand Work Phone: [facility] Comment on above: Manual 04-10-2024 10:12-0500 Body height 170.2 cm Gordo Barfield MD Work Phone: [facility] 04-10-2024 10:12-0500 Body mass index (BMI) [Ratio] 44.95 kg/m2 Gordo Barfield MD Work Phone: [facility] 04-10-2024 10:12-0500 Body weight 130.18 kg Gordo Barfield MD Work Phone: [facility] 04-10-2024 10:12-0500 Diastolic blood pressure 70 mm[Hg] Gordo Barfield MD Work Phone: [facility] 04-10-2024 10:12-0500 Systolic blood pressure 110 mm[Hg] Gordo Barfield MD Work Phone: [facility] 04-06-2024 10:00-0500 Body height 170.2 cm Hayden Arciniega MD Work Phone: [facility] 04-06-2024 10:00-0500 Body mass index (BMI) [Ratio] 43.07 kg/m2 Hayden Arciniega MD Work Phone: [facility] 04-06-2024 10:00-0500 Body temperature 97 [degF] Hayden Arciniega MD Work Phone: [facility] 04-06-2024 10:00-0500 Body weight 124.74 kg Hayden Arciniega MD Work Phone: [facility] 04-06-2024 10:00-0500 Diastolic blood pressure 80 mm[Hg] Hayden Arciniega MD Work Phone: [facility] 04-06-2024 10:00-0500 Heart rate 86 /min Hayden Arciniega MD Work Phone: [facility] 04-06-2024 10:00-0500 SaO2% (BldA) [Mass fraction] 97 % Hayden Arciniega MD Work Phone: [facility] 04-06-2024 10:00-0500 Systolic blood pressure 136 mm[Hg] Hayden Arciniega MD Work Phone: [facility] 04-02-2024 13:27-0500 Body mass index (BMI) [Ratio] 45.42 kg/m2 Marky Mike DO Work Phone: [facility] 04-02-2024 13:27-0500 Body temperature 98.71 [degF] Marky Mike DO Work Phone: [facility] 04-02-2024 13:27-0500 Body weight 131.54 kg Marky Mike DO Work Phone: [facility] 04-02-2024 13:27-0500 Diastolic blood pressure 90 mm[Hg] Marky Mike DO Work Phone: [facility] 04-02-2024 13:27-0500 Heart rate 78 /min Marky Mike DO Work Phone: [facility] 04-02-2024 13:27-0500 SaO2% (BldA) [Mass fraction] 99 % Marky Mike DO Work Phone: [facility] 04-02-2024 13:27-0500 Systolic blood pressure 132 mm[Hg] Marky Mike DO Work Phone: [facility] 03-23-2024 14:35-0400 Body mass index (BMI) [Ratio] 44.17 kg/m2 Oly WARREN Work Phone: [facility] 03-23-2024 14:35-0400 Body weight 127.91 kg Oly Plascencia PA Work Phone: [facility] 03-23-2024 14:35-0400 Diastolic blood pressure 76 mm[Hg] Oly Plascencia PA Work Phone: [facility] 03-23-2024 14:35-0400 Systolic blood pressure 122 mm[Hg] Oly Plascencia PA Work Phone: [facility] 03-23-2024 10:11-0400 Body height 170.2 cm Ma Sand Work Phone: [facility] 03-23-2024 10:11-0400 Body mass index (BMI) [Ratio] 43.06 kg/m2 Ma Sand Work Phone: [facility] 03-23-2024 10:11-0400 Body temperature 97.59 [degF] Ma Sand Work Phone: [facility] 03-23-2024 10:11-0400 Body weight 124.74 kg Ma Sand Work Phone: [facility] 03-23-2024 10:11-0400 Diastolic blood pressure 85 mm[Hg] Ma Sand Work Phone: [facility] 03-23-2024 10:11-0400 Heart rate 71 /min Ma Sand Work Phone: [facility] 03-23-2024 10:11-0400 Respiratory rate 16 /min Ma Sand Work Phone: [facility] 03-23-2024 10:11-0400 SaO2% (BldA) [Mass fraction] 94 % Ma Sand Work Phone: [facility] 03-23-2024 10:11-0400 Systolic blood pressure 135 mm[Hg] Ma Sand Work Phone: [facility] 03-16-2024 11:24-0400 Body mass index (BMI) [Ratio] 43.67 kg/m2 Luan Skip DO Work Phone: [facility] 03-16-2024 11:24-0400 Body weight 126.46 kg Luan Skip DO Work Phone: [facility] 03-16-2024 11:24-0400 Diastolic blood pressure 70 mm[Hg] Luan Skip DO Work Phone: [facility] 03-16-2024 11:24-0400 Systolic blood pressure 120 mm[Hg] Luan Skip DO Work Phone: [facility] 03-16-2024 09:20-0400 Body height 170.18 cm MANAGER RELIABILITY-C Gayomer Enciso Work Phone: [facility] 03-16-2024 09:20-0400 Body mass index (BMI) [Ratio] 43 kg/m2 MANAGER RELIABILITY-C Gayomer Johnmer Work Phone: [facility] 03-16-2024 09:20-0400 Body weight 124.73 kg MANAGER RELIABILITY-C Gay Johnmer Work Phone: [facility] 02-21-2024 11:04-0400 Body temperature 97.2 [degF] Ma Sand Work Phone: [facility] 02-21-2024 11:04-0400 Diastolic blood pressure 68 mm[Hg] Ma Sand Work Phone: [facility] Comment on above: manual 02-21-2024 11:04-0400 Heart rate 95 /min Ma Sand Work Phone: [facility] 02-21-2024 11:04-0400 Respiratory rate 16 /min Ma Sand Work Phone: [facility] 02-21-2024 11:04-0400 SaO2% (BldA) [Mass fraction] 98 % Ma Sand Work Phone: [facility] 02-21-2024 11:04-0400 Systolic blood pressure 102 mm[Hg] Ma Sand Work Phone: [facility] Comment on above: manual 02-16-2024 09:23-0400 Diastolic blood pressure 72 mm[Hg] MANAGER RELIABILITY-C Gay Britt Work Phone: [facility] 02-16-2024 09:23-0400 Heart rate 70 /min MANAGER RELIABILITY-C Gay Britt Work Phone: [facility] 02-16-2024 09:23-0400 Respiratory rate 16 /min MANAGER RELIABILITY-C Gay Britt Work Phone: [facility] 02-16-2024 09:23-0400 SaO2% (BldA) [Mass fraction] 96 % MANAGER RELIABILITY-C Gay Britt Work Phone: [facility] 02-16-2024 09:23-0400 Systolic blood pressure 126 mm[Hg] MANAGER RELIABILITY-C Gay Britt Work Phone: [facility] 02-16-2024 07:27-0400 Body height 170.18 cm MANAGER RELIABILITY-C Gay Britt Work Phone: [facility] [facility] 02-16-2024 07:27-0400 Body weight 122.46 kg MANAGER RELIABILITY-C Gay Britt Work Phone: [facility] 01-28-2024 11:31-0400 Body weight 126.6 kg [facility] 01-28-2024 11:31-0400 Diastolic blood pressure 80 mm[Hg] [facility] 01-28-2024 11:31-0400 Heart rate 69 /min [facility] 01-28-2024 11:31-0400 SaO2% (BldA) [Mass fraction] 98 % [facility] 01-28-2024 11:31-0400 Systolic blood pressure 120 mm[Hg] [facility] 01-25-2024 11:30-0400 Body temperature 97.39 [degF] Ma Sand Work Phone: [facility] 01-25-2024 11:30-0400 Diastolic blood pressure 67 mm[Hg] Ma Sand Work Phone: [facility] 01-25-2024 11:30-0400 Heart rate 68 /min Ma Sand Work Phone: [facility] 01-25-2024 11:30-0400 Respiratory rate 16 /min Ma Sand Work Phone: [facility] 01-25-2024 11:30-0400 SaO2% (BldA) [Mass fraction] 99 % Ma Sand Work Phone: [facility] 01-25-2024 11:30-0400 Systolic blood pressure 92 mm[Hg] Ma Sand Work Phone: [facility] 12-27-2023 11:16-0400 Diastolic blood pressure 68 mm[Hg] Neda Liz PA-C Work Phone: [facility] 12-27-2023 11:16-0400 Systolic blood pressure 98 mm[Hg] Neda Liz PA-C Work Phone: [facility] 12-27-2023 11:02-0400 Body height 170.2 cm Neda Liz PA-C Work Phone: [facility] 12-27-2023 11:02-0400 Body mass index (BMI) [Ratio] 43.08 kg/m2 Neda Liz PA-C Work Phone: [facility] 12-27-2023 11:02-0400 Body temperature 97.7 [degF] Neda Rubioer PA-C Work Phone: [facility] 12-27-2023 11:02-0400 Body weight 124.8 kg Nedagal Rubioer PA-C Work Phone: [facility] 12-27-2023 11:02-0400 Heart rate 89 /min Nedagal Rubioer PA-C Work Phone: [facility] 12-27-2023 11:02-0400 Respiratory rate 16 /min Neda Liz PA-C Work Phone: [facility] 12-27-2023 11:02-0400 SaO2% (BldA) [Mass fraction] 98 % Neda Rubioer PA-C Work Phone: [facility] 12-16-2023 14:13-0400 Body height 170.18 cm [facility] 12-16-2023 14:13-0400 Body mass index (BMI) [Ratio] 42.7 kg/m2 [facility] 12-16-2023 14:13-0400 Body temperature 98.6 [degF] [facility] 12-16-2023 14:13-0400 Body weight 123.83 kg [facility] 12-16-2023 14:13-0400 Diastolic blood pressure 73 mm[Hg] [facility] 12-16-2023 14:13-0400 Heart rate 75 /min [facility] 12-16-2023 14:13-0400 Systolic blood pressure 106 mm[Hg] [facility] 11-29-2023 13:43-0400 Body temperature 97.59 [degF] Ma Sand Work Phone: [facility] 11-29-2023 13:43-0400 Diastolic blood pressure 51 mm[Hg] Ma Sand Work Phone: [facility] 11-29-2023 13:43-0400 Heart rate 73 /min Ma Sand Work Phone: [facility] 11-29-2023 13:43-0400 Respiratory rate 16 /min Ma Sand Work Phone: [facility] 11-29-2023 13:43-0400 SaO2% (BldA) [Mass fraction] 96 % Ma Sand Work Phone: [facility] 11-29-2023 13:43-0400 Systolic blood pressure 83 mm[Hg] Ma Sand Work Phone: [facility] 11-04-2023 13:55-0400 Body height 170.18 cm [facility] 11-04-2023 13:55-0400 Body temperature 97.3 [degF] [facility] 11-04-2023 13:55-0400 Diastolic blood pressure 54 mm[Hg] [facility] 11-04-2023 13:55-0400 Heart rate 62 /min [facility] 11-04-2023 13:55-0400 Systolic blood pressure 104 mm[Hg] [facility] 10-27-2023 14:44-0400 Body temperature 97 [degF] Ma Sand Work Phone: [facility] 10-27-2023 14:44-0400 Diastolic blood pressure 72 mm[Hg] Ma Sand Work Phone: [facility] 10-27-2023 14:44-0400 Heart rate 97 /min Ma Sand Work Phone: [facility] 10-27-2023 14:44-0400 Respiratory rate 18 /min Ma Sand Work Phone: [facility] 10-27-2023 14:44-0400 SaO2% (BldA) [Mass fraction] 97 % Ma Sand Work Phone: [facility] 10-27-2023 14:44-0400 Systolic blood pressure 110 mm[Hg] Ma Sand Work Phone: [facility] 10-20-2023 13:10-0400 Body height 170.18 cm [facility] 10-20-2023 13:10-0400 Body mass index (BMI) [Ratio] 43.2 kg/m2 [facility] 10-20-2023 13:10-0400 Body temperature 97.3 [degF] [facility] 10-20-2023 13:10-0400 Body weight 125.19 kg [facility] 10-20-2023 13:10-0400 Diastolic blood pressure 54 mm[Hg] [facility] 10-20-2023 13:10-0400 Heart rate 74 /min [facility] 10-20-2023 13:10-0400 Systolic blood pressure 111 mm[Hg] [facility] 09-30-2023 10:48-0400 Body temperature 97 [degF] Ma Sand Work Phone: [facility] 09-30-2023 10:48-0400 Diastolic blood pressure 82 mm[Hg] Ma Sand Work Phone: [facility] 09-30-2023 10:48-0400 Heart rate 71 /min Ma Sand Work Phone: [facility] 09-30-2023 10:48-0400 Respiratory rate 18 /min Ma Sand Work Phone: [facility] 09-30-2023 10:48-0400 SaO2% (BldA) [Mass fraction] 97 % Ma Sand Work Phone: [facility] 09-30-2023 10:48-0400 Systolic blood pressure 132 mm[Hg] Ma Sand Work Phone: [facility] 09-22-2023 14:41-0400 Body weight 117.93 kg [facility] 08-31-2023 10:34-0400 Body temperature 97.3 [degF] Ma Sand Work Phone: [facility] 08-31-2023 10:34-0400 Diastolic blood pressure 66 mm[Hg] Ma Sand Work Phone: [facility] 08-31-2023 10:34-0400 Heart rate 68 /min Ma Sand Work Phone: [facility] 08-31-2023 10:34-0400 Respiratory rate 18 /min Ma Sand Work Phone: [facility] 08-31-2023 10:34-0400 SaO2% (BldA) [Mass fraction] 99 % Ma Sand Work Phone: [facility] 08-31-2023 10:34-0400 Systolic blood pressure 105 mm[Hg] Ma Sand Work Phone: [facility] 08-05-2023 11:15-0400 Body temperature 97.39 [degF] Ma Sand Work Phone: [facility] 08-05-2023 11:15-0400 Diastolic blood pressure 41 mm[Hg] Ma Sand Work Phone: [facility] 08-05-2023 11:15-0400 Heart rate 68 /min Ma Sand Work Phone: [facility] 08-05-2023 11:15-0400 Respiratory rate 18 /min Ma Sand Work Phone: [facility] 08-05-2023 11:15-0400 SaO2% (BldA) [Mass fraction] 98 % Ma Sand Work Phone: [facility] 08-05-2023 11:15-0400 Systolic blood pressure 98 mm[Hg] Ma Sand Work Phone: [facility] 07-13-2023 11:49-0500 Body temperature 97.5 [degF] Ma Sand Work Phone: [facility] 07-13-2023 11:49-0500 Diastolic blood pressure 74 mm[Hg] Ma Sand Work Phone: [facility] 07-13-2023 11:49-0500 Heart rate 83 /min Ma Sand Work Phone: [facility] 07-13-2023 11:49-0500 Respiratory rate 18 /min Ma Sand Work Phone: [facility] 07-13-2023 11:49-0500 SaO2% (BldA) [Mass fraction] 96 % Cele Marshall Work Phone: [facility] 07-13-2023 11:49-0500 Systolic blood pressure 109 mm[Hg] Cele Marshall Work Phone: [facility] 07-13-2023 10:01-0500 Diastolic blood pressure 65 mm[Hg] Lois Holm MD Work Phone: [facility] 07-13-2023 10:01-0500 Systolic blood pressure 105 mm[Hg] Lois Holm MD Work Phone: [facility] 07-13-2023 09:41-0500 Body height 170.2 cm Lois Holm MD Work Phone: [facility] 07-13-2023 09:41-0500 Body mass index (BMI) [Ratio] 43.85 kg/m2 Lois Holm MD Work Phone: [facility] 07-13-2023 09:41-0500 Body weight 127.01 kg Lois Holm MD Work Phone: [facility] 07-13-2023 09:41-0500 Heart rate 71 /min Lois Holm MD Work Phone: [facility] 07-06-2023 14:48-0500 Body mass index (BMI) [Ratio] 41.81 kg/m2 Kade Richardson MD Work Phone: [facility] 07-06-2023 14:48-0500 Body weight 119.3 kg Kade Richardson MD Work Phone: [facility] 06-09-2023 08:45-0500 Body height 170.2 cm Michelle TABOR Work Phone: [facility] 06-09-2023 08:45-0500 Body mass index (BMI) [Ratio] 44.48 kg/m2 Michelle TABOR Work Phone: [facility] 06-09-2023 08:45-0500 Body weight 128.82 kg Michelle Jasmine DIGITAL PRODUCT SPECIALIST-[employer] Work Phone: [facility] 06-09-2023 08:45-0500 Diastolic blood pressure 82 mm[Hg] Michelle Jasmine DIGITAL PRODUCT SPECIALIST-[employer] Work Phone: [facility] 06-09-2023 08:45-0500 Heart rate 80 /min Michelle Jasmine DIGITAL PRODUCT SPECIALIST-[employer] Work Phone: [facility] 06-09-2023 08:45-0500 Systolic blood pressure 146 mm[Hg] Michelle Jasmine DIGITAL PRODUCT SPECIALIST-[employer] Work Phone: [facility] 05-26-2023 17:17-0500 Body weight 123.83 kg Christie Phan MD Work Phone: [facility] 04-26-2023 14:42-0500 Body weight 125.19 kg Christie Phan MD Work Phone: [facility] 03-19-2023 11:16-0400 Body temperature 97.7 [degF] Ma Sand Work Phone: [facility] 03-19-2023 11:16-0400 Diastolic blood pressure 54 mm[Hg] Ma Sand Work Phone: [facility] 03-19-2023 11:16-0400 Heart rate 75 /min Ma Sand Work Phone: [facility] 03-19-2023 11:16-0400 Respiratory rate 16 /min Ma Sand Work Phone: [facility] 03-19-2023 11:16-0400 SaO2% (BldA) [Mass fraction] 96 % Ma Sand Work Phone: [facility] 03-19-2023 11:16-0400 Systolic blood pressure 111 mm[Hg] Ma Sand Work Phone: [facility] 02-19-2023 10:56-0400 Body height 170.2 cm Vera Najera MD Work Phone: [facility] 02-19-2023 10:56-0400 Body temperature 97.39 [degF] Vera Naejra MD Work Phone: [facility] 02-19-2023 10:56-0400 Body weight 120.75 kg Vera Najera MD Work Phone: [facility] 02-19-2023 10:56-0400 Diastolic blood pressure 69 mm[Hg] Vera Najera MD Work Phone: [facility] 02-19-2023 10:56-0400 Heart rate 110 /min Vera Najera MD Work Phone: [facility] 02-19-2023 10:56-0400 Respiratory rate 16 /min Vera Najera MD Work Phone: [facility] 02-19-2023 10:56-0400 SaO2% (BldA) [Mass fraction] 96 % Vera Najera MD Work Phone: [facility] 02-19-2023 10:56-0400 Systolic blood pressure 132 mm[Hg] Vera Najera MD Work Phone: [facility] 01-22-2023 12:09-0400 Diastolic blood pressure 76 mm[Hg] Ma Sand Work Phone: [facility] 01-22-2023 12:09-0400 Systolic blood pressure 107 mm[Hg] Ma Sand Work Phone: [facility] 01-22-2023 12:08-0400 Body temperature 97.59 [degF] Ma Sand Work Phone: [facility] 01-22-2023 12:08-0400 Heart rate 102 /min Ma Sand Work Phone: [facility] 01-22-2023 12:08-0400 Respiratory rate 16 /min Ma Sand Work Phone: [facility] 01-22-2023 12:08-0400 SaO2% (BldA) [Mass fraction] 97 % Ma Sand Work Phone: [facility] 11-19-2022 11:00-0400 Body temperature 97.2 [degF] Ma Sand Work Phone: [facility] 11-19-2022 11:00-0400 Diastolic blood pressure 54 mm[Hg] Ma Sand Work Phone: [facility] 11-19-2022 11:00-0400 Heart rate 98 /min Ma Sand Work Phone: [facility] 11-19-2022 11:00-0400 Respiratory rate 16 /min Ma Sand Work Phone: [facility] 11-19-2022 11:00-0400 SaO2% (BldA) [Mass fraction] 98 % Ma Sand Work Phone: [facility] 11-19-2022 11:00-0400 Systolic blood pressure 126 mm[Hg] Ma Sand Work Phone: [facility] 10-22-2022 11:51-0400 Body height 170.2 cm Ma Sand Work Phone: [facility] 10-22-2022 11:51-0400 Body weight 120.66 kg Ma Sand Work Phone: [facility] 10-22-2022 11:51-0400 Respiratory rate 16 /min Ma Sand Work Phone: [facility] 10-22-2022 10:50-0400 Body height 170.2 cm Vera Najera MD Work Phone: [facility] 10-22-2022 10:50-0400 Body temperature 97 [degF] Vera Najera MD Work Phone: [facility] 10-22-2022 10:50-0400 Body weight 120.75 kg Vera Najera MD Work Phone: [facility] 10-22-2022 10:50-0400 Diastolic blood pressure 55 mm[Hg] Vera Najera MD Work Phone: [facility] 10-22-2022 10:50-0400 Heart rate 78 /min Vera Najera MD Work Phone: [facility] 10-22-2022 10:50-0400 Respiratory rate 16 /min Vera Najera MD Work Phone: [facility] 10-22-2022 10:50-0400 SaO2% (BldA) [Mass fraction] 98 % Vera Najera MD Work Phone: [facility] 10-22-2022 10:50-0400 Systolic blood pressure 132 mm[Hg] Vera Najera MD Work Phone: [facility] 09-24-2022 10:22-0400 Body height 170.2 cm Ma Sand Work Phone: [facility] 09-24-2022 10:22-0400 Body temperature 97 [degF] Ma Sand Work Phone: [facility] 09-24-2022 10:22-0400 Body weight 120.2 kg Ma Sand Work Phone: [facility] 09-24-2022 10:22-0400 Diastolic blood pressure 81 mm[Hg] Ma Sand Work Phone: [facility] 09-24-2022 10:22-0400 Heart rate 77 /min Ma Sand Work Phone: [facility] 09-24-2022 10:22-0400 Respiratory rate 16 /min Ma Sand Work Phone: [facility] 09-24-2022 10:22-0400 SaO2% (BldA) [Mass fraction] 97 % Ma Sand Work Phone: [facility] 09-24-2022 10:22-0400 Systolic blood pressure 116 mm[Hg] Ma Sand Work Phone: [facility] 09-07-2022 14:03-0400 Body weight 120.2 kg Christie Phan MD Work Phone: [facility] 08-27-2022 09:45-0400 Body height 170.2 cm Rebekah Rojas APRN.[employer] Work Phone: [facility] 08-27-2022 09:45-0400 Body temperature 97.7 [degF] Rebekah Rojas DIGITAL PRODUCT SPECIALIST.[employer] Work Phone: [facility] 08-27-2022 09:45-0400 Body weight 118.66 kg Rebekah Rojas DIGITAL PRODUCT SPECIALIST.[employer] Work Phone: [facility] 08-27-2022 09:45-0400 Diastolic blood pressure 55 mm[Hg] Rebekah Rojas DIGITAL PRODUCT SPECIALIST.[employer] Work Phone: [facility] 08-27-2022 09:45-0400 Heart rate 63 /min Rebekah Rojas DIGITAL PRODUCT SPECIALIST.[employer] Work Phone: [facility] 08-27-2022 09:45-0400 Respiratory rate 16 /min Rebekah Rojas DIGITAL PRODUCT SPECIALIST.[employer] Work Phone: [facility] 08-27-2022 09:45-0400 SaO2% (BldA) [Mass fraction] 96 % Rebekah Rojas DIGITAL PRODUCT SPECIALIST.[employer] Work Phone: [facility] 08-27-2022 09:45-0400 Systolic blood pressure 117 mm[Hg] Rebekah Rojas DIGITAL PRODUCT SPECIALIST.[employer] Work Phone: [facility] 05-20-2022 13:28-0500 Body height 170.2 cm Vera Najera MD Work Phone: [facility] 05-20-2022 13:28-0500 Body temperature 97.7 [degF] Vera Najera MD Work Phone: [facility] 05-20-2022 13:28-0500 Diastolic blood pressure 70 mm[Hg] Vera Najera MD Work Phone: [facility] 05-20-2022 13:28-0500 Heart rate 93 /min Vera Najera MD Work Phone: [facility] 05-20-2022 13:28-0500 Respiratory rate 16 /min Vera Najera MD Work Phone: [facility] 05-20-2022 13:28-0500 SaO2% (BldA) [Mass fraction] 97 % Vera Najera MD Work Phone: [facility] 05-20-2022 13:28-0500 Systolic blood pressure 127 mm[Hg] Vera Najera MD Work Phone: [facility] 03-18-2022 10:49-0400 Body height 170.2 cm Vera Najera MD Work Phone: [facility] 03-18-2022 10:49-0400 Body temperature 97.81 [degF] Vera Najera MD Work Phone: [facility] 03-18-2022 10:49-0400 Body weight 113.4 kg Vera Najera MD Work Phone: [facility] 03-18-2022 10:49-0400 Diastolic blood pressure 49 mm[Hg] Vera Najera MD Work Phone: [facility] 03-18-2022 10:49-0400 Heart rate 86 /min Vera Najera MD Work Phone: [facility] 03-18-2022 10:49-0400 Respiratory rate 16 /min Vera Najera MD Work Phone: [facility] 03-18-2022 10:49-0400 SaO2% (BldA) [Mass fraction] 98 % Vera Najera MD Work Phone: [facility] 03-18-2022 10:49-0400 Systolic blood pressure 145 mm[Hg] Vera Najera MD Work Phone: [facility] 03-09-2022 11:41-0400 Body height 170.2 cm Christie Phan MD Work Phone: [facility] 03-09-2022 11:41-0400 Body weight 112.49 kg Christie Phan MD Work Phone: [facility] 03-09-2022 11:41-0400 Diastolic blood pressure 100 mm[Hg] Christie Phan MD Work Phone: [facility] 03-09-2022 11:41-0400 Systolic blood pressure 158 mm[Hg] Christie Phan MD Work Phone: [facility] 03-04-2022 10:39-0400 Body height 170.2 cm Vera Najera MD Work Phone: [facility] 03-04-2022 10:39-0400 Body temperature 97.5 [degF] Vera Najera MD Work Phone: [facility] 03-04-2022 10:39-0400 Body weight 112.76 kg Vera Najera MD Work Phone: [facility] 03-04-2022 10:39-0400 Diastolic blood pressure 48 mm[Hg] Vera Najera MD Work Phone: [facility] 03-04-2022 10:39-0400 Heart rate 79 /min Vera Najera MD Work Phone: [facility] 03-04-2022 10:39-0400 Respiratory rate 16 /min Vera Najera MD Work Phone: [facility] 03-04-2022 10:39-0400 SaO2% (BldA) [Mass fraction] 99 % Vera Najera MD Work Phone: [facility] 03-04-2022 10:39-0400 Systolic blood pressure 132 mm[Hg] Vera Najera MD Work Phone: [facility] 11-26-2021 16:00-0400 Body height 168.91 cm Mirela Kelsey Other [employer] Other 11-26-2021 16:00-0400 Body mass index (BMI) [Ratio] 37.68 kg/m2 Mirela Kelsey Other [employer] Other 11-26-2021 16:00-0400 Body temperature 98.4 [degF] Mirela Kelsey Other [employer] Other 11-26-2021 16:00-0400 Body weight 107.5 kg Mirela Kelsey Other [employer] Other 11-26-2021 16:00-0400 Diastolic blood pressure 61 mm[Hg] Mirela Kelsey Other [employer] Other 11-26-2021 16:00-0400 Systolic blood pressure 115 mm[Hg] Mirela Kelsey Other [employer] Other 10-24-2021 08:18-0400 Body weight 108.86 kg Lynne Ni MD Work Phone: [facility] 10-24-2021 08:18-0400 Diastolic blood pressure 42 mm[Hg] Lynne Ni MD Work Phone: [facility] 10-24-2021 08:18-0400 Heart rate 72 /min Lynne Ni MD Work Phone: [facility] 10-24-2021 08:18-0400 Systolic blood pressure 106 mm[Hg] Lynne Ni MD Work Phone: [facility] 10-15-2021 15:45-0400 Body height 168.91 cm Mirela Kelsey Other [employer] Other 10-15-2021 15:45-0400 Body mass index (BMI) [Ratio] 38.31 kg/m2 Mirela Kelsey Other [employer] Other 10-15-2021 15:45-0400 Body temperature 98.1 [degF] Mirela Kelsey Other [employer] Other 10-15-2021 15:45-0400 Body weight 109.32 kg Mirela Kelsey Other [employer] Other 10-15-2021 15:45-0400 Diastolic blood pressure 60 mm[Hg] Mirela Kelsey Other [employer] Other 10-15-2021 15:45-0400 Systolic blood pressure 114 mm[Hg] Mirela Kelsey Other [employer] Other 09-11-2021 15:15-0400 Body height 168.91 cm Mirela Kelsey Other [employer] Other 09-11-2021 15:15-0400 Body mass index (BMI) [Ratio] 37.99 kg/m2 Mirela Klesey Other [employer] Other 09-11-2021 15:15-0400 Body temperature 97.9 [degF] Mirela Kelsey Other [employer] Other 09-11-2021 15:15-0400 Body weight 108.41 kg Mirela Kelsey Other [employer] Other 09-11-2021 15:15-0400 Diastolic blood pressure 83 mm[Hg] Mirela Kelsey Other [employer] Other 09-11-2021 15:15-0400 Systolic blood pressure 144 mm[Hg] Mirela Kelsey Other [employer] Other 10-07-2020 12:45-0400 Diastolic blood pressure 78 mm[Hg] [employer] Work Phone: 10-07-2020 12:45-0400 Heart rate 68 /min [employer] [employer] Work Phone: 10-07-2020 12:45-0400 SaO2% (BldA) [Mass fraction] 99 % [employer] [employer] Phone: 10-07-2020 12:45-0400 Systolic blood pressure 112 mm[Hg] [employer] [employer] Work Phone: 10-07-2020 10:45-0400 Respiratory rate 22 /min [employer] Work Phone: 10-07-2020 09:01-0400 Body height 170.2 cm [employer] Work Phone: 10-07-2020 09:01-0400 Body mass index (BMI) [Ratio] 36.65 kg/m2 [employer] Work Phone: 10-07-2020 09:01-0400 Body temperature 97.81 [degF] [employer] Work Phone: 10-07-2020 09:01-0400 Body weight 106.14 kg [employer] [employer] Work Phone: Encounters Encounter Date Encounter Type Care Provider Facility Start: 02-28-2025 End: 02-28-2025 ambulatory Gay Enciso MANAGER RELIABILITY-C Work Phone: [facility] Work Phone: Start: 02-28-2025 End: 02-28-2025 Patient encounter procedure Bandar Batista [facility] Work Phone: Start: 02-28-2025 End: 02-28-2025 Office outpatient new 45 minutes Terence Blum MD Work Phone: [facility] Comment on above: Pilonidal abscess (Primary Dx); Pilonidal cyst Start: 02-28-2025 End: 02-28-2025 ambulatory TERENCE BLUM V Not Available Start: 02-26-2025 End: 02-26-2025 ambulatory Gay Enciso MANAGER RELIABILITY-C Work Phone: [facility] Work Phone: Start: 02-26-2025 End: 02-26-2025 Departed Referred Mathew Ji MD -[facility] Start: 02-21-2025 End: 02-22-2025 ambulatory VERA ABHYANKAR Facility:[facility] Start: 02-14-2025 End: 02-14-2025 Office outpatient visit 15 minutes Bernabe English MD Work Phone: [facility] Comment on above: Pilonidal cyst (Primary Dx); Hidradenitis suppurativa Start: 02-14-2025 End: 02-14-2025 ambulatory BERNABE ENGLISH Not Available Start: 02-14-2025 End: 02-14-2025 Bamboo flowsheet Bernabe English MD Work Phone: [facility] Start: 02-14-2025 End: 02-14-2025 Durga flowsheet Bernabe English MD Work Phone: [facility] Start: 02-14-2025 End: 02-14-2025 ambulatory Gay Enciso MANAGER RELIABILITY-C Work Phone: [facility] Work Phone: Start: 02-14-2025 End: 02-14-2025 Patient encounter procedure Margie Arnett NP -[facility] Work Phone: Start: 02-08-2025 End: 02-09-2025 ambulatory LYNNE NI Facility:[facility] Start: 01-31-2025 End: 01-31-2025 Admission to same day surgery center Adolfo Kang MD -[facility] Work Phone: Start: 01-31-2025 End: 01-31-2025 ambulatory Gay Enciso MANAGER RELIABILITY-C Work Phone: [facility] Work Phone: Start: 01-31-2025 Non-patient / Non-visit Adolfo Kang MD -[facility] Work Phone: Start: 01-26-2025 [...] Start: 01-17-2025 End: 01-17-2025 ambulatory Gay Enciso MANAGER RELIABILITY-C Work Phone: [facility] Work Phone: Start: 01-17-2025 End: 01-17-2025 Patient encounter procedure Margie Arnett NP -[facility] Work Phone: Start: 01-11-2025 End: [...] Patient encounter procedure Bandar Batista APRN -[facility] Work Phone: Start: 11-30-2024 End: 11-30-2024 Follow-up encounter Vaibhav Carvalho APRN.RAND T[employer]ER Work Phone: Hematology/Oncology Comment on above: Results Start: 11-30-2024 End: 11-30-2024 ambulatory Gay Enciso MANAGER RELIABILITY-C Work Phone: [facility] Work Phone: Start: 11-30-2024 End: 11-30-2024 Patient encounter procedure Margie Arnett MANAGER RELIABILITY -[facility] H ealth Pain Mgmt Work Phone: Start: 11-29-2024 End: 11-29-2024 Office outpatient visit 25 minutes Vaibhav Carvalho APRN.RAND TACKER Work Phone: Hematology/Oncology Comment on above: Hypogammaglobulinemia [...] Not Available Start: 11-22-2024 ambulatory Janes Barfield Facility:[facility] Start: 11-22-2024 Registered Recurring Janes Barfield MD -[facility]ible Start: 11-21-2024 End: 11-21-2024 ambulatory Gay Enciso MANAGER RELIABILITY-C Work Phone: [facility] Work Phone: Start: 11-21-2024 End: 11-21-2024 Patient encounter procedure Adolfo Kang MD [facility] Work Phone: Start: 11-21-2024 Non-patient / Non-visit Adolfo Kang MD -[facility] Work Phone: Start: 11-20-2024 End: 11-20-2024 Telephone encounter Vaibhav Carvalho APRN.CNP Work Phone: Hematology/Oncology Comment on above: Lab Orders Start: 11-16-2024 End: 11-17-2024 ambulatory Chair 16 Sible[address] Work Phone: Hematology/Oncology Comment on above: Other systemic lupus erythematosus with other organ involvement (HCC) (Primary Dx) Start: 11-15-2024 End: 11-20-2024 Telephone encounter Cesilia Whalen [facility] Work Phone: HOSPITAL PHARMACY HB-3 Start: 11-13-2024 End: 11-13-2024 Patient encounter procedure Adolfo Kang MD -[facility] H ealth Pain Mgmt Work Phone: Start: 10-31-2024 End: 10-31-2024 ambulatory Chair 2 Sibley Work Phone: Hematology/Oncology Comment on above: Elevated sed rate (Primary Dx); Megaloblastic anemia due to vitamin B12 deficiency; Frequent infections; Hypogammaglobulinemia (HCC); Bilateral leg weakness; Discoid lupus erythematosus Start: 10-19-2024 End: 10-19-2024 ambulatory Chair 14 S[address] Work Phone: Hematology/Oncology Comment on above: Other [...] both feet; Long-term use of high-risk medication; skilled nursing 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; Bilateral hand [...] 09-20-2024 End: 09-20-2024 Specialty Pharmacy Aidee Quintanilla [facility] Comment on above: SPP Inflammatory Conditions - Medication Refill (Benlysta) Start: 09-19-2024 End: 09-19-2024 ambulatory MANUEL FERRIS Facility:[facility] Start: 09-19-2024 End: 09-19-2024 Patient encounter procedure Deborah Arroyo [facility] Work Phone: [facility] Comment on above: Fibromyalgia (Primary Dx); Family history of disease of aorta; Family history of cancer Generalized articula r hypermobility (Primary Dx); Chronic pain syndrome; Discoid lupus erythematosus; Family history of pneumothorax in son; Family history of cancer; Family history of mild aortic dilation in daughter Start: 09-19-2024 End: 09-19-2024 ambulatory LYNNE LAST Facility:[facility] Start: 09-18-2024 End: 09-18-2024 Telephone encounter [facility] Comment on above: Future Appointment Start: 09-18-2024 End: 09-18-2024 ambulatory Chair 19 Gabbi Work Phone: Hematology/Oncology Comment on above: Other systemic lupus erythematosus with other organ involvement (HCC) (Primary Dx) Refill Request Start: 09-07-2024 End: 09-07-2024 Follow-up encounter Vaibhav Carvalho APRN.RAND TACKER Work Phone: Hematology/Oncology Comment on above: Results Start: 09-06-2024 End: 09-06-2024 Patient encounter procedure Adolfo Kang MD [facility] Work Phone: Start: 09-06-2024 End: 09-12-2024 [...] Office outpatient visit 25 minutes Vaibhav Carvalho APRN.RAND TACKER Work Phone: Hematology/Oncology Comment on above: Hypogammaglobulinemia (HCC) (Primary Dx) ; Vitamin B12 deficiency; Other iron deficiency anemia; Megaloblastic anemia due to vitamin B12 deficiency Start: 09-06-2024 End: 09-06-2024 ambulatory VAIBHAV CARVALHO Facility:[facility] Start: 09-04-2024 End: 09-04-2024 Office outpatient visit 25 minutes Gordo Barfield MD Work Phone: [facility] Comment on above: Thyroid nodule (CMS/HCC) (Primary Dx); LPRD (laryngopharyngeal reflux disease) Start: 09-04-2024 End: 09-04-2024 ambulatory GORDO BARFIELD Not Available Start: 09-04-2024 End: 09-04-2024 Bamboo flowsheet Gordo Barfield MD Work Phone: [facility] Start: 09-04-2024 End: 09-04-2024 Bamboo flowsheet Gordo Barfield MD Work Phone: [facility] Start: 09-01-2024 End: 09-02-2024 Refill Lynne Ni MD Work Phone: Rheumatology Comment on above: Refill Request Start: 08-29-2024 End: 08-29-2024 ambulatory MANUEL M CHEYENNEGal Facility:[facility] Start: 08-28-2024 End: 08-28-2024 Telephone encounter Vaibhav Carvalho APRN.RAND TACKER Work Phone: Hematology/Oncology Comment on above: Lab Orders Start: 08-24-2024 End: 08-24-2024 Clinisync Result Encounter Gordo Barfield MD Work Phone: [facility] External Department Unsolicited Start: 08-24-2024 End: 08-24-2024 Clinisync Result Encounter Gordo Barfield MD Work Phone: [facility] External Department Unsolicited Start: 08-22-2024 End: 08-22-2024 ambulatory Gay Enciso MANAGER RELIABILITY-C Work Phone: [facility] Work Phone: Start: 08-22-2024 End: 08-22-2024 Patient encounter procedure Gay LINC Work Phone: [facility] Physician [facility] Work Phone: Start: 08-17-2024 End: 08-17-2024 Specialty Pharmacy Aidee Quintanilla [facility] Comment on above: [...] Patient encounter procedure Gay GALEANO Work Phone: [facility] Physician [facility] Mg[facility] Work Phone: Start: 07-26-2024 End: 07-26-2024 Office outpatient visit 25 minutes Lois Holm MD Work Phone: [facility] Comment on above: Sinus tachycardia (Primary Dx); Shortness of breath; Paroxysmal supraventricular tachycardia (CMS-HCC); Essential hypertension; Obstructive sleep apnea syndrome; Morbid obesity (Multi); Current smoker Start: 07-26-2024 End: 07-26-2024 ambulatory LOIS HOLM [facility] Ambulatory Start: 07-25-2024 End: 07-25-2024 Bamboo flowsheet Bernabe English MD Work Phone: [facility] Start: 07-25-2024 End: 07-25-2024 Bamboo flowsheet Bernabe English MD Work Phone: [facility] Start: 07-25-2024 End: 07-25-2024 Office outpatient visit 25 minutes Bernabe English MD Work Phone: [facility] Comment on above: Hidradenitis suppurativa (Primary Dx); Other seborrheic dermatitis; Lupus erythematosus tumidus (CMS/HCC); Rash and other nonspecific skin eruption; Capillary angioma; Neoplasm of uncertain behavior of skin Start: 07-25-2024 End: 07-25-2024 Specialty Pharmacy Aidee Quintanilla [facility] Comment on above: SPP Inflammatory Conditions - Medication Refill (Benlysta) Start: 07-20-2024 End: 07-20-2024 Telemedicine consultation with patient Alhaji Head DO Work Phone: Infectious Disease Start: 07-20-2024 End: 07-20-2024 ambulatory Alhaji Head DO Work Phone: Infectious Disease Comment on above: Nipple discharge (Primary Dx); Other systemic lupus erythematosus with other organ involvement ([facility]); On prednisone therapy; Long-term use of Plaquenil Start: 07-19-2024 Non-patient / Non-visit Gay GALEANO Work Phone: [facility] Pain Mgmt Work Phone: Start: 07-19-2024 End: 07-19-2024 Admission to same day surgery center Gay GALEANO Work Phone: [facility] Work Phone: Start: 07-19-2024 End: 07-19-2024 ambulatory Gay GALEANO Work Phone: [facility] Work Phone: Start: 07-12-2024 End: 07-12-2024 [...] Start: 07-10-2024 End: 07-10-2024 Patient encounter procedure [facility] Pain Mgmt Work Phone: Start: 07-09-2024 End: 07-10-2024 Telephone encounter Lynne Ni MD Work Phone: Rheumatology Comment on above: Results Start: 06-30-2024 End: 06-30-2024 ambulatory LYNNE NI Facility:[facility] Start: 06-29-2024 End: 06-29-2024 Specialty Pharmacy Aidee Quintanilla [facility] Comment on [...] Test Silverio Cp Nsg Wl Work Phone: [facility] Comment on above: Diarrhea, unspecified type (Primary Dx); Abdominal pressure Start: 06-13-2024 End: 06-13-2024 Office outpatient visit 25 minutes Vaibhav Carvalho APRN.RAND TACKER Work Phone: Hematology/Oncology Comment on above: Megaloblastic [...] 06-12-2024 End: 06-13-2024 Telephone encounter Vaibhav Carvalho APRN.RAND TACKER Work Phone: Hematology/Oncology Comment on above: Lab Orders Start: 06-06-2024 End: 06-06-2024 Bamboo flowsheet Oly WARREN Work Phone: [facility] Start: 06-06-2024 End: 06-10-2024 Bamboo flowsheet Oly WARREN Work Phone: [facility] Start: 06-06-2024 End: 06-10-2024 Clinisync Result Encounter Oly WARREN Work Phone: [facility] External Department Unsolicited Start: 06-06-2024 End: 06-06-2024 Specialty Pharmacy Aidee Quintanilla [facility] Comment on above: [...] 05-15-2024 End: 05-15-2024 Social Work Deisy Jaime [facility] Hematology/Oncology Start: 05-12-2024 End: 05-12-2024 Specialty Pharmacy Aidee Quintanilla [facility] Comment on above: SPP Inflammatory Conditions - Medication Refill (Benlysta) Start: 04-28-2024 End: 04-28-2024 Orders Only Pepper Cotter LPN [facility] Comment on above: Peripheral vascular disease, unspecified (CMS-HCC) (Primary Dx); Cold extremities; Systemic lupus erythematosus (CMS-HCC) Start: 04-26-2024 End: 04-26-2024 [facility] Start: 04-26-2024 End: 04-26-2024 Nursing evaluation of patient and report Cele Marshall Work Phone: Hematology/Oncology Comment on above: Elevated sed rate (Primary Dx); Megaloblastic anemia due to vitamin B12 deficiency Start: 04-14-2024 End: 10-05-2024 Telephone encounter [facility] Work Phone: [facility] Comment on above: Patient Update; Appointment Start: 04-11-2024 End: 04-11-2024 Specialty Pharmacy Aidee Dwight [facility] Comment on above: SPP Inflammatory Conditions - Medication Refill (Benlysta) Start: 04-10-2024 End: 04-10-2024 Bamboo flowsheet Gordo Barfield MD Work Phone: [facility] Start: 04-10-2024 End: 04-10-2024 Bamboo flowsheet Gordo Barfield MD Work Phone: [facility] Start: 04-10-2024 End: 04-10-2024 Telephone encounter Vera Najera MD Work Phone: Cancer [facility] Comment on above: Appointment Start: 04-10-2024 End: 04-10-2024 Office outpatient visit 25 minutes Gordo Barfield MD Work Phone: [facility] Comment on above: LPRD (laryngopharyngeal reflux disease) (Primary Dx); Acute otalgia, right Start: 04-10-2024 End: 04-10-2024 ambulatory GORDO BARFIELD Not Available Start: 04-07-2024 End: 04-07-2024 Social Work Deisy Jaime [facility] Hematology/Oncology Start: 04-06-2024 End: 04-06-2024 Clinisync [...] unspecified site, unspecified whether rheumatoid factor present ([facility]-HCC); Current smoker; 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 Start: [...] 03-30-2024 ambulatory Maico Douglas MD Work Phone: [facility] Start: 03-27-2024 End: [...] 03-23-2024 Bamboo flowsheet Oly WARREN Work Phone: [facility] Start: 03-23-2024 End: 03-23-2024 Bamboo flowsheet Oly WARREN Work Phone: [facility] Start: 03-23-2024 End: 03-23-2024 Nursing evaluation of patient and report Ma Nurse Dre Marshall Work Phone: Hematology/Oncology Comment on above: Elevated sed rate (Primary Dx); Megaloblastic anemia due to vitamin B12 deficiency Start: 03-23-2024 End: 03-23-2024 ambulatory MANUEL Batista Gal Facility:[facility] Start: 03-20-2024 End: 03-30-2024 Telephone encounter Akiko Cooper MD Work Phone: [facility] Start: 03-18-2024 End: [...] both feet; Long-term use of high-risk medication; skilled nursing 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; Bilateral hand [...] Not Available Start: 03-16-2024 End: 03-16-2024 ambulatory MANAGER RELIABILITY-C Gay Enciso Work Phone: [facility] Work Phone: Start: 03-16-2024 End: 03-16-2024 Patient encounter procedure MANAGER RELIABILITY-C Gay Enciso Work Phone: [facility] Physician [facility] Gastroenterology Work Phone: Start: 03-13-2024 End: 03-13-2024 Specialty Pharmacy Aidee Quintanilla [facility] Comment on above: SPP Inflammatory Conditions - Medication Refill (Benlysta - NCA 09/2024) Start: 03-08-2024 End: 03-08-2024 ambulatory AB [facility] Start: 03-07-2024 End: 03-08-2024 Chart abstracting [facility] Work Phone: Neurology Comment on above: cmn Start: 03-02-2024 End: 03-02-2024 Refill Zita Cuellar MANAGER RELIABILITY Work Phone: [facility] Comment on above: Lumbosacral radiculopathy at L5; Degenerative disc disease, lumbar; Cervical radiculopathy at C5 Start: 02-28-2024 End: 02-28-2024 ambulatory MANAGER RELIABILITY-C Gya Enciso Work Phone: [facility] Work Phone: Start: 02-28-2024 End: 02-28-2024 Patient encounter procedure MANAGER RELIABILITY-C Gay Enciso Work Phone: [facility] Work Phone: Start: 02-22-2024 End: 02-22-2024 Telephone encounter Oly Elam Ananya Work Phone: [facility] Comment on above: Operations Dispatcher - Other (Eds scheduling ) Start: 02-21-2024 End: 02-21-2024 Nursing evaluation of patient and report Ma Nurse Dre Marshall Work Phone: Hematology/Oncology Comment on above: Elevated sed rate (Primary Dx); Megaloblastic anemia due to vitamin B12 deficiency Start: 02-18-2024 End: 02-18-2024 Telephone encounter Lynne Ni MD Work Phone: Rheumatology Start: 02-16-2024 Non-patient / Non-visit MANAGER RELIABILITY-C Gay Enciso Work Phone: [facility] Work Phone: Start: 02-16-2024 End: 02-16-2024 Admission to same day surgery center MANAGER RELIABILITY-C aGy Enciso Work Phone: [facility] Work Phone: Start: 02-16-2024 End: 02-16-2024 ambulatory MANAGER RELIABILITY-C Gay Enciso Work Phone: [facility] Work Phone: Start: 02-15-2024 End: 02-15-2024 Telephone encounter Lexus Heck APRN.CNP Work Phone: Neurology Comment on above: Orders (PAP RX.) Start: 02-14-2024 End: 02-14-2024 Follow-up encounter Aidee Quintanilla [facility] Comment on above: SPP Inflammatory Conditions - Follow-up (Benlysta); Insurance Authorization ([place] Submitted) Start: 02-14-2024 End: 02-14-2024 ambulatory Lexus Heck APRN.RAND TACKER Work Phone: Neurology Comment on above: JOSE RAFAEL (obstructive sleep apnea) (Primary D x); Somnolence, daytime SPP Inflammatory Con ditions - Medication Refill (Benlysta - NCA 09/2024) Start: 02-14-2024 End: 02-14-2024 Telemedicine consultation with patient Lexus Heck APRN.RAND TACKER Work Phone: Neurology Start: 02-09-2024 End: 02-09-2024 Bamboo flowsheet Zita Cuellar MANAGER RELIABILITY Work Phone: [facility] Start: 02-09-2024 End: 02-09-2024 Bamboo flowsheet Zita Cuellar MANAGER RELIABILITY Work Phone: [facility] Start: 02-09-2024 End: 02-09-2024 Phys/qhp telephone evaluation 21-30 min Zita Cuellar MANAGER RELIABILITY Work Phone: [facility] Comment on above: Lumbosacral radiculopathy at L5 (Primary Dx); Degenerative disc disease, lumbar; Cervical radiculopathy at C5 Start: 02-07-2024 End: 02-07-2024 Refill Zita Cuellar MANAGER RELIABILITY Work Phone: [facility] Comment on above: Autoimmune disease (CMS/HCC); Fibromyalgia; Numbness Start: 01-28-2024 End: 01-31-2024 ambulatory Alhaji Head DO Work Phone: [facility] Work Phone: Comment on above: Blood work Start: 01-28-2024 End: 01-28-2024 Patient encounter procedure [facility] ysician Group[facility] [place] Work Phone: Start: 01-27-2024 End: 01-27-2024 Telemedicine [...] 01-20-2024 Refill Kade Richardson MD Work Phone: [facility] Comment on above: Degenerative disc disease, lumbar (Prima ry Dx); Lumbosacral radiculopathy at L5 Start: 01-18-2024 End: 01-19-2024 Specialty Pharmacy Aidee Quintanilla [facility] Comment on above: [...] apnea syndrome Start: 12-24-2023 End: 12-24-[facility] Start: 12-16-2023 End: 12-16-2023 [facility] Work Phone: Start: 12-16-2023 End: 12-16-2023 Patient encounter procedure [facility] y[facility] Infect[facility] Disease Work Phone: Start: 12-13-2023 Specialty Pharmacy Aidee Quintanilla [facility] Comment on above: [...] acid Start: 11-15-2023 Specialty Pharmacy Aidee Quintanilla [facility] Comment on above: SPP Inflammatory Conditions - Medication Refill (Benlysta - NCA 09/2024) Start: 11-11-2023 Refill Lynne Ni MD Work Phone: Rheumatology Comment on above: Refill Request Start: 11-04-2023 End: 11-04-2023 [facility] Work Phone: Start: 11-04-2023 End: 11-04-2023 Patient encounter procedure [facility] ysician Group-[facility] Infectious Disease Work Phone: Start: 10-27-2023 [...] Start: 10-20-2023 End: 10-20-2023 Patient encounter procedure [facility] y[facility] Infectious Disease Work Phone: Start: 10-12-2023 Specialty Pharmacy Aidee Quintanilla [facility] Comment on above: [...] of Plaquenil; Long-term use of high-risk medication; salvage determiner 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; Raynaud's disease [...] Start: 09-22-2023 End: 09-22-2023 Patient encounter procedure [facility] y[facility]ician [facility] Gastroenterology Work Phone: Start: 09-13-2023 Specialty Pharmacy Aidee Quintanilla [facility] Comment on above: [...] rate Start: 08-12-2023 Specialty Pharmacy Aidee Quintanilla [facility] Comment on above: SPP Inflammatory Conditions - Medication Refill (Benlysta ) Start: 08-05-2023 End: 08-05-2023 Nursing evaluation of patient and report Cele Marshall Work Phone: Hematology/Oncology Comment on above: 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); Elevated sed rate Start: 07-28-2023 Non-patient / Non-visit [facility] Gianna kenney [facility] Gastroenterology Work Phone: Start: 07-13-2023 ambulatory Aidee Quintanilla [facility] Start: 07-13-2023 End: 07-13-2023 Nursing evaluation of patient and report Cele Marshall Work Phone: Hematology/Oncology Comment on above: 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); Elevated sed rate SPP Inflammatory Con ditions - Medication Refill (Benlysta ) Start: 07-13-2023 End: 07-13-2023 Office outpatient new 45 minutes Lois Holm MD Work Phone: [facility] Comment on above: Shortness of breath (Primary Dx); Paroxysmal supraventricular tachycardia; PAC (premature atrial contraction); Current smoker; Systemic lupus erythematosus, unspecified SLE type, unspecified organ involvement status (CMS/HCC); Palpitations; Obstructive sleep apnea syndrome; Morbid obesity (CMS/HCC); Bilateral lower extremity edema Start: 07-06-2023 End: 07-06-2023 Office outpatient visit 25 minutes Kade Richardson MD Work Phone: [facility] Comment on above: Autoimmune disease (CMS/HCC) (Primary Dx ); Autonomic dysfunction; Lumbosacral radiculopathy; Bilateral leg weakness Start: 07-05-2023 Chart abstracting Kade Richardson MD Work Phone: [facility] Start: 06-09-2023 End: 06-09-2023 Office outpatient new 60 minutes Michelle Jasmine APRN-RAND TACKER Work Phone: [facility] Comment on above: Irregular heart [...] evaluation of patient and report Nurse Morgan [facility] Work Phone: Rheumatology Comment on above: [...] deficiency; Elevated sed rate; Bilateral wrist pain; skilled nursing 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; Steroid-induced osteoporosis; 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 Start: 02-04-2023 Patient encounter procedure Clinton Schroeder (Pharmacist) [facility] Specialty Pharm[facility] Comment on above: SPP Inflammatory Conditions - Treatment Referral (Benlysta); Insurance Authorization ([place] submission pending) Start: 02-04-2023 Telephone encounter Lynne Ni MD Work Phone: Rheumatology Comment on above: Appointment; Orders; Medication Authoriz ation Start: 02-04-2023 End: 02-04-2023 Telemedicine consultation with patient Lynne Ni MD Work Phone: [facility] Start: 01-28-2023 Refill Christie Phan [...] Misty Nelson MD Work Phone: [facility] Start: 12-24-2022 Refill Christie Phan MD Work Phone: Integrated Medicine Comment on above: Refill Request Start: 12-18-2022 Telephone encounter Lidia Argueta RN Work Phone: Hematology/Oncology Comment on above: Care Coordination (appointment) Start: 12-17-2022 End: 12-18-2022 ambulatory Rebekah Rojas APRN.RAND TACKER Work Phone: Hematology/Oncology Comment on above: 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); Chronic fatigue and malaise Start: 12-17-2022 End: 12-18-2022 Telemedicine consultation with patient Rebekah Rojas APRN.RAND TACKER Work Phone: [facility] Start: 12-16-2022 Telephone encounter [...] FERRIS . Facility:[facility] Start: 09-08-2022 Telephone encounter Angelai [facility] Delivery - Compliance Comment on above: [...] Start: 08-27-2022 End: 08-27-2022 ambulatory Rebekah Rojas APRN.RAND TACKER Work Phone: Hematology/Oncology Comment on above: 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); Elevated sed rate; High total serum IgM; Chronic fatigue and malaise; JOSE RAFAEL (obstructive sleep apnea) Start: 08-27-2022 End: 08-27-2022 Patient encounter procedure Rebekah Rjoas APRN.RAND TACKER Work Phone: [facility] Start: 08-19-2022 Telephone encounter Lynne Ni MD Work Phone: Rheumatology Comment on above: Results Start: 08-15-2022 ambulatory Lynne Ni MD Work Phone: Rheumatology Comment on above: update Start: 08-10-2022 Refill Christie Phan MD Work Phone: [facility] Comment on above: Refill Request Start: 07-27-2022 End: 07-27-2022 ambulatory Lexus Heck APRN.RAND TACKER Work Phone: Neurology Comment on above: JOSE RAFAEL (obstructive sleep apnea) (Primary D x) Start: 07-27-2022 End: 07-27-2022 Telemedicine consultation with patient Lexus Heck APRN.RAND TACKER Work Phone: [facility] Start: 07-24-2022 ambulatory Lynne Ni MD Work Phone: Rheumatology Comment on above: Blood work Start: 07-24-2022 Telephone encounter Vera Najera MD Work Phone: Hematology/Oncology Comment on above: Orders (Lab Orders Before Appoint ment) Start: 07-21-2022 ambulatory Lawanda Miranda MD Work Phone: [facility] Start: 07-21-2022 Patient encounter [...] on above: Cpap Start: 05-05-2022 Telephone encounter Jaim Rivera [facility] Comment on above: PAP Therapy Follow Up PAP Rx Faxed ([facility]) Start: 04-24-2022 Telephone encounter Ny Lance MD Work Phone: [facility] Comment on above: Future Appointment (Scheduling questions /concerns) Start: 04-22-2022 Telephone encounter Eliza Licea Research Coordinator [facility] Comment on above: Appointment; Operations Dispatcher - Other Start: 03-31-2022 End: 04-01-[address] MANUEL FERRIS . Facility:H1 Start: 03-31-2022 Refill Christie Phan MD Work Phone: [facility] Comment on above: Refill [...] from caregiver Christie Phan MD Work Phone: [facility] Start: 03-18-2022 End: 03-18-2022 Patient encounter procedure Vera Najera MD Work Phone: [place] Start: 03-12-2022 End: 03-13-[address] MANUEL FERRIS . Facility:[facility]1 Start: 03-10-2022 End: 03-10-2022 ambulatory Alhaji Head DO Work Phone: Infectious Disease Comment on above: results Raised level of immu noglobulins (Primary Dx); Wound healing, delayed; Current smoker Start: 03-10-2022 E-mail encounter from caregiver Alhaji Head DO Work Phone: [facility] Start: 03-10-2022 End: 03-10-2022 Telemedicine consultation with patient Misty Leslie LEE Work Phone: [place] Start: 03-09-2022 End: 03-10-2022 ambulatory GAY ENCISO Facility: Start: 03-09-2022 End: 03-09-2022 Office consultation new/estab patient 80 min Christie Phan MD Work Phone: [facility] Comment on above: Obesity, [...] with patient Alhaji Head DO Work Phone: [facility] Start: 02-14-2022 End: 02-15-[address] MANUEL FERRIS . Facility:[facility]1 Start: 11-26-2021 End: 11-26-2021 ambulatory Mirela Kelsey Other [employer] Other Start: 11-26-2021 Office outpatient visit 25 minutes Mirela Kelsey [facility] Infectious Disease Start: 11-17-2021 End: 11-18-[address] MIERLA KELSEY Facility:H1 Start: 10-24-2021 End: 10-24-2021 Patient [...] 10-15-2021 End: 10-15-2021 ambulatory Mirela Kelsey Other [employer] Other Start: 10-15-2021 Office outpatient visit 25 minutes Mirela LOPEZ Infectious Disease Start: 10-03-2021 End: [address] IMRELA KELSEY Facility:H1 Start: 09-18-2021 End: 09-18-2021 ambulatory Mirela Kelsey Other [employer] Other Start: 09-18-2021 Telephone encounter Mirela Kelsey [facility] Start: 09-11-2021 End: 09-11-2021 ambulatory Mirela Kelsey Other [employer] Other Start: 09-11-2021 Office outpatient new 45 minutes Mirela Kelsey [facility] Start: 10-07-2020 End: 10-08-2020 ambulatory [facility] Start: 10-07-2020 End: 10-07-2020 Subsequent hospital visit by physician [employer] Jameson Melendez [employer] Comment on above: Arrived Start: 09-14-2018 End: 09-17-2018 Patient encounter procedure [facility] Procedures Date Procedure Procedure Detail Performing Clinician Start: 02-26-2025 Urine culture Gay peralta MANAGER RELIABILITY-C Work Phone: Start: 01-31-2025 DH Nerve Radio Frequ ency (Bilateral) Gay Enciso MANAGER RELIABILITY-C Work Phone: Start: 01-11-2025 Blood count complete automated Lynne Ni MD Work Phone: Start: 10-02-2024 Blood count complete automated Lynne Ni MD Work Phone: Start: 10-02-2024 C-reactive protein Christie Ni MD Work Phone: Start: 09-06-2024 Assay of gammaglobul in iga igd igg igm each Vaibhav Carvalho DIGITAL PRODUCT SPECIALIST.RAND TACKER Work Phone: Start: 08-24-2024 Us soft tissue head & neck real time imge docm Gordo Barfield MD Work Phone: Start: 07-19-2024 Injection of local anesthetic into sacroiliac joint Gay Enciso MANAGER RELIABILITY-C Work Phone: Start: 06-13-2024 Blood count complete auto&auto difrntl wbc Vaibhav Carvalho DIGITAL PRODUCT SPECIALIST.RAND TACKER Work Phone: Start: 06-06-2024 IGP,APTIMA HPV,AGE GDLN [...] Injection of local anesthetic into sacroiliac joint MANAGER RELIABILITY-C Gay Enciso Work Phone: Start: 07-13-2023 Ecg routine ecg w/le ast 12 lds w/i&r Lois Holm MD Work Phone: Start: 06-09-2023 Ecg routine ecg w/le ast 12 lds w/i&r Michelle Jasmine DIGITAL PRODUCT SPECIALIST-RAND TACKER Work Phone: Start: 09-10-2022 Microscopic observat ion [...] 09-11-2027 Screening for malignant neoplasm of cervix [facility] Start: 06-06-2027 Screening for malignant neoplasm of cervix [facility] Start: 09-10-2025 Screening for malignant neoplasm of cervix Pap Smear [facility] Start: 07-26-2025 End: 07-26-2025 Patient encounter procedure 07/26/2025 11:00 AM EST Office Visit [facility] [address] [place] [address] Lois Holm MD [address] [place] [address] [facility] Start: 07-25-2025 End: 07-25-2025 Patient encounter procedure [facility] Start: 04-20-2025 End: 01-18-2026 25-hydroxyvitamin D3 [Mass/volume] in Serum or Plasma VITAMIN D 25 HYDROXY Lab Routine Vitamin D deficiency Expected: 04/20/2025 (Approximate), Expires: 01/18/2026 [facility] Comment on above: Expected: 04/20/2025 (Approximate), Expi res: 01/18/2026 Start: 04-20-2025 End: 01-18-2026 C reactive protein [Mass/volume] in Serum or Plasma C-REACTIVE PROTEIN Lab Routine Elevated C-reactive protein (CRP) Elevated sed rate Expected: 04/20/2025 (Approximate), Expires: 01/18/2026 [facility] Comment on above: Expected: 04/20/2025 (Approximate), Expi res: 01/18/2026 Start: 04-20-2025 End: 01-18-2026 CBC panel - Blood by Automated count COMPLETE BLOOD COUNT Lab Routine Anemia of chronic disease Expected: 04/20/2025 (Approximate), Expires: 01/18/2026 [facility] Comment on above: Expected: 04/20/2025 (Approximate), Expi res: 01/18/2026 Start: 04-20-2025 End: 01-18-2026 Comprehensive metabolic 2000 panel - Serum or Plasma COMPREHENSIVE METABOLIC PANEL Lab Routine Elevated LFTs Expected: 04/20/2025 (Approximate), Expires: 01/18/2026 [facility] Work Phone: Comment on above: Expected: 04/20/2025 (Approximate), Expi res: 01/18/2026 Start: 04-20-2025 End: 01-18-2026 Erythrocyte sedimentation rate SEDIMENTATION RATE, WESTERGREN Lab Routine Elevated C-reactive protein (CRP) Elevated sed rate Expected: 04/20/2025 (Approximate), Expires: 01/18/2026 [facility] Comment on above: Expected: 04/20/2025 (Approximate), Expi res: 01/18/2026 Start: 04-07-2025 Screening for malignant neoplasm of breast Mammogram [facility] Start: 04-06-2025 Adult BMI Screening Adult BMI Screening [facility] Start: 04-06-2025 Screening for malignant neoplasm of breast Mammogram [facility] Start: 04-06-2025 Tobacco Screening Tobacco Screening [facility] Start: 03-23-2025 End: 03-23-2025 Patient encounter procedure 03/23/2025 11:30 AM EDT [facility] [address] [place] [phone] Terence Bulm MD [address] [facility] [address] [place] [address] [facility] Start: 03-19-2025 End: 03-19-2025 [facility] encounter [facility] Start: 03-17-2025 Diabetes mellitus screening Diabetes Screening [facility] Start: 02-26-2025 Urine culture [facility] Start: 02-26-2025 Bacteria identified in Urine by Culture Urine Culture [facility] Start: 02-21-2025 End: 02-21-2025 ambulatory Hematology/Oncology Comment on above: 3 mo F/U-IVIG Start: 02-21-2025 End: 02-21-2025 Patient encounter procedure 02/21/2025 8:45 AM EDT Office Visit [facility] [address] [place] [address] 3 mo F/U-IVIG [facility] Comment on above: 3 mo F/U-IVIG Start: 02-14-2025 End: 02-14-2025 Patient encounter procedure 02/14/2025 3:20 PM EDT Office Visit [facility] [address] [place] [address] Bernabe English MD [address] [place] [address] Arrived [facility] Comment on above: Arrived Start: 02-08-2025 End: 02-08-2025 ambulatory 02/08/2025 2:00 PM EDT Infusion Center Hematology/Oncology [address] [place] [address] [facility] - Hematology/Oncology Comment on above: [facility] - Start: 01-31-2025 [facility] Start: 01-24-2025 End: 01-24-2025 ambulatory Hematology/Oncology Comment on above: IVIG q4 weeks IVIG(5hours) q4 week s Start: 01-22-2025 Influenza vaccination [facility] Start: 01-06-2025 End: 10-06-2025 25-hydroxyvitamin D3 [Mass/volume] in Serum or Plasma VITAMIN D 25 HYDROXY Lab Routine Vitamin D deficiency Expected: 01/06/2025 (Approximate), Expires: 10/06/2025 [facility] Comment on above: Expected: 01/06/2025 (Approximate), Expi res: 10/06/2025 Start: 01-06-2025 End: 10-06-2025 BLOOD TB SCREEN BLOOD TB SCREEN Lab Routine Screening-pulmonary TB Expected: 01/06/2025 (Approximate), Expires: 10/06/2025 [facility] Comment on above: Expected: 01/06/2025 (Approximate), Expi res: 10/06/2025 Start: 01-06-2025 End: 10-06-2025 C reactive protein [Mass/volume] in Serum or Plasma C-REACTIVE PROTEIN Lab Routine Elevated sed rate Elevated C-reactive protein (CRP) Expected: 01/06/2025 (Approximate), Expires: 10/06/2025 [facility] Comment on above: Expected: 01/06/2025 (Approximate), Expi res: 10/06/2025 Start: 01-06-2025 End: 10-06-2025 CBC panel - Blood by Automated count COMPLETE BLOOD COUNT Lab Routine Anemia of chronic disease Expected: 01/06/2025 (Approximate), Expires: 10/06/2025 [facility] Comment on above: Expected: 01/06/2025 (Approximate), Expi res: 10/06/2025 Start: 01-06-2025 End: 10-06-2025 Chronic hepatitis differentiation between hepatitis B and C virus panel - Serum or Plasma HEP REMOTE PANEL BL Lab Routine Elevated LFTs Expected: 01/06/2025 (Approximate), Expires: 10/06/2025 [facility] Comment on above: Expected: 01/06/2025 (Approximate), Expi res: 10/06/2025 Start: 01-06-2025 End: 10-06-2025 Cobalamin (Vitamin B12) [Mass/volume] in Serum or Plasma VITAMIN B12 Lab Routine Vitamin B12 deficiency Expected: 01/06/2025 (Approximate), Expires: 10/06/2025 [facility] Comment on above: Expected: 01/06/2025 (Approximate), Expi res: 10/06/2025 Start: 01-06-2025 End: 10-06-2025 Comprehensive metabolic 2000 panel - Serum or Plasma COMPREHENSIVE METABOLIC PANEL Lab Routine Elevated LFTs Expected: 01/06/2025 (Approximate), Expires: 10/06/2025 [facility] Work Phone: Comment on above: Expected: 01/06/2025 (Approximate), Expi res: 10/06/2025 Start: 01-06-2025 End: 10-06-2025 Erythrocyte sedimentation rate SEDIMENTATION RATE, WESTERGREN Lab Routine Elevated sed rate Elevated C-reactive protein (CRP) Expected: 01/06/2025 (Approximate), Expires: 10/06/2025 [facility] Comment on above: Expected: 01/06/2025 (Approximate), Expi res: 10/06/2025 Start: 12-27-2024 End: 12-27-2024 ambulatory 12/27/2024 9:00 AM T Infusion Center Hematology/Oncology [facility] [place] [address] IVIG q4 weeks Hematology/Oncology Comment on above: IVIG q4 weeks Start: 12-14-2024 End: 12-14-2024 ambulatory 12/14/2024 2:00 PM T Infusion Center Hematology/Oncology [address] [place] [address] [facility] - Hematology/Oncology Comment on above: B[facility]LYSTA - Start: 11-29-2024 End: 11-29-2024 ambulatory Hematology/Oncology Comment on above: 3 mo F/U-IVIG(slow infusion per pt reque st/B12 +/-IV iron lab Start: 11-29-2024 End: 11-29-2024 Patient encounter procedure 11/29/2024 8:45 AM EDT Office Visit [facility] [address] [place] [address] 3 mo F/U-IVIG(slow infusion per pt request/B12 +/-IV iron lab [facility] Comment on above: 3 mo F/U-IVIG(slow infusion per pt reque st/B12 +/-IV iron lab Start: 11-20-2024 End: 02-19-2025 CBC W Auto Differential panel - Blood COMPLETE BLOOD COUNT AND DIFFERENTIAL Lab Routine Hypogammaglobulinemia (HCC) Expected: 11/20/2024, Expires: 02/19/2025 [facility] Work Phone: Comment on above: Expected: 11/20/2024, Expires: Start: 11-20-2024 End: 02-19-2025 Cobalamin (Vitamin B12) [Mass/volume] in Serum or Plasma VITAMIN B12 Lab Routine Hypogammaglobulinemia (HCC) Expected: 11/20/2024, Expires: 02/19/2025 [facility] Comment on above: Expected: 11/20/2024, Expires: Start: 11-20-2024 End: 02-19-2025 Comprehensive metabolic 2000 panel - Serum or Plasma COMPREHENSIVE METABOLIC PANEL Lab Routine Hypogammaglobulinemia (HCC) Expected: 11/20/2024, Expires: 02/19/2025 [facility] Comment on above: Expected: 11/20/2024, Expires: Start: 11-20-2024 End: 02-19-2025 Ferritin [Mass/volume] in Serum or Plasma FERRITIN Lab Routine Hypogammaglobulinemia (HCC) Expected: 11/20/2024, Expires: 02/19/2025 [facility] Comment on above: Expected: 11/20/2024, Expires: Start: 11-20-2024 End: 02-19-2025 Folate [Mass/volume] in Serum or Plasma FOLATE, SERUM Lab Routine Hypogammaglobulinemia (HCC) Expected: 11/20/2024, Expires: 02/19/2025 [facility] Comment on above: Expected: 11/20/2024, Expires: Start: 11-20-2024 End: 02-19-2025 IMMUNOGLOBULINS,IGG,IGA,IG M IMMUNOGLOBULINS,IGG,IGA,IG M Lab Routine Hypogammaglobulinemia (HCC) Expected: 11/20/2024, Expires: 02/19/2025 [facility] Comment on above: Expected: 11/20/2024, Expires: Start: 11-20-2024 Influenza vaccination Influenza Vaccine (#1) [facility] Comment on above: Postponed from 01/23/2024 (Patient Refus ed) Start: 11-20-2024 End: 02-19-2025 Iron and Iron binding capacity panel - Serum or Plasma IRON AND TIBC Lab Routine Hypogammaglobulinemia (HCC) Expected: 11/20/2024, Expires: 02/19/2025 [facility] Comment on above: Expected: 11/20/2024, Expires: Start: 11-16-2024 End: 11-16-2024 ambulatory 11/16/2024 2:00 PM T Infusion Center Hematology/Oncology [address] [place] [address] [place] [address] [facility] - Hematology/Oncology Comment on above: [facility] - Start: 11-01-2024 End: 11-01-2024 ambulatory 11/01/2024 9:00 AM T Infusion Center Hematology/Oncology [address] [place] [address] [place] [address] IVIG q 4 weeks with B 12 inj and lab Hematology/Oncology Comment on above: IVIG q 4 weeks with B 12 inj and lab Start: 10-31-2024 End: 10-31-2024 ambulatory 10/31/2024 9:00 AM EDT Infusion Center Hematology/Oncology [address] [place] [address] IVIG q 4 weeks with B 12 inj and lab Hematology/Oncology Comment on above: IVIG q 4 weeks with B 12 inj and lab Start: 10-19-2024 End: 10-19-2024 ambulatory 10/19/2024 2:00 PM EDT Infusion Center Hematology/Oncology [address] [place] [address] [place] [address] [facility] - IVIG AND BEN[facility]STA AT LEAST 1 DAY APART FOR FUTURE APPTS Hematology/Oncology Comment on above: BENLYSTA - IVIG AND [facility] AT LEAST 1 DAY APART FOR FUTURE APPTS Start: 10-18-2024 End: 10-18-2024 Specialty Pharmacy 10/18/2024 10:00 AM EDT Specialty Pharmacy [facility] [id number] [place] [address] Pharmacist, [facility] [address] [place] [address] [place] [address] REFILL- Benlysta- PAx 02/11/25- - mult call attempts [facility] Comment on above: REFILL- Benlysta- PAx 02/11/25- - mult call attempts Start: 10-07-2024 End: 10-07-2024 Follow-up encounter 10/07/2024 8:00 AM EDT [facility] [address] [place] [address] Lynne Ni MD [address] [place] [address] follow up visit Rheumatology Comment on above: follow up visit Start: 10-06-2024 End: 07-09-2025 25-hydroxyvitamin D3 [Mass/volume] in Serum or Plasma VITAMIN D 25 HYDROXY Lab Routine Vitamin D deficiency Expected: 10/06/2024 (Approximate), Expires: 07/09/2025 [facility] Comment on above: Expected: 10/06/2024 (Approximate), Expi res: 07/09/2025 Start: 10-06-2024 End: 07-09-2025 C reactive protein [Mass/volume] in Serum or Plasma C-REACTIVE PROTEIN Lab Routine Elevated sed rate Elevated C-reactive protein (CRP) Expected: 10/06/2024 (Approximate), Expires: 07/09/2025 [facility] Comment on above: Expected: 10/06/2024 (Approximate), Expi res: 07/09/2025 Start: 10-06-2024 End: 07-09-2025 CBC panel - Blood by Automated count COMPLETE BLOOD COUNT Lab Routine Anemia of chronic disease Expected: 10/06/2024 (Approximate), Expires: 07/09/2025 [facility] Comment on above: Expected: 10/06/2024 (Approximate), Expi res: 07/09/2025 Start: 10-06-2024 End: 07-09-2025 Comprehensive metabolic 2000 panel - Serum or Plasma COMPREHENSIVE METABOLIC PANEL Lab Routine Elevated LFTs Expected: 10/06/2024 (Approximate), Expires: 07/09/2025 [facility] Work Phone: Comment on above: Expected: 10/06/2024 (Approximate), Expi res: 07/09/2025 Start: 10-06-2024 End: 07-09-2025 Erythrocyte sedimentation rate SEDIMENTATION RATE, WESTERGREN Lab Routine Elevated sed rate Elevated C-reactive protein (CRP) Expected: 10/06/2024 (Approximate), Expires: 07/09/2025 [facility] Comment on above: Expected: 10/06/2024 [...] 10/02/2024 9:00 AM T Infusion Center Hematology/Oncology [address] [place] [address] [place] [address] IVIG q 4 weeks with B 12 inj and lab Hematology/Oncology Comment on above: IVIG q 4 weeks with B 12 inj and lab Start: 09-28-2024 End: 09-28-2024 Specialty Pharmacy 09/28/2024 10:00 AM EDT Specialty Pharmacy [facility] [address] [place] [address] Pharmacist, [facility] [address] [place] [address] [place] [address] REFILL- Benlysta- PAx 02/11/25- urs - LVM 09/20, 09/25 [facility] Comment on above: REFILL- Benlysta- PAx 02/11/25- thurs - LVM 09/20, 09/25 Start: 09-25-2024 End: 09-25-2024 Specialty Pharmacy 09/25/2024 10:15 AM EDT Specialty Pharmacy [facility] [address] [place] [id number] Pharmacist, [facility] [address] [place] [address] [place] [address] REFILL- Benlysta- PAx 02/11/25- urs - LVM 09/20 [facility] Comment on above: REFILL- Benlysta- PAx 02/11/25- urs - LVM 09/20 Start: 09-20-2024 End: 09-20-2024 Specialty Pharmacy 09/20/2024 10:15 AM EDT Specialty Pharmacy [facility] [address] [place] [address] Pharmacist, [facility] [address] [place] [address] [place] [address] REFILL- Benlysta- PAx 02/11/25- - pend new [...] Center Hematology/Oncology [address] [place] [address] 3 mo F/U-IVIG(slow infusion per pt request/B12 +/-IV iron Hematology/Oncology Comment on above: 3 mo F/U-IVIG(slow infusion per pt reque st/B12 +/-IV iron Start: 09-06-2024 End: 09-06-2024 Follow-up encounter Hematology/Oncology Comment on above: 3 month follow up IVIG for hypogammaglob ulinemia + b12 Start: 09-06-2024 End: 09-06-2024 Patient encounter procedure 09/06/2024 8:45 AM EDT Office Visit [facility] [address] [place] [address] [place] [address] 3 month follow up IVIG for hypogammaglobulinemia + b12 [facility] Comment on above: 3 month follow up IVIG for hypogammaglob ulinemia + b12 Start: 09-05-2024 End: 09-05-2024 Follow-up encounter Hematology/Oncology Comment on above: 3 month follow up IVIG for hypogammaglob ulinemia + b12 Start: 09-05-2024 End: 09-05-2024 Patient encounter procedure 09/05/2024 8:45 AM EDT Office Visit [facility] [address] [place] [address] [place] [address] 3 month follow up IVIG for hypogammaglobulinemia + b12 [facility] Comment on above: 3 month follow up IVIG for hypogammaglob ulinemia + b12 Start: 09-04-2024 End: 09-04-2024 Patient encounter procedure 09/04/2024 3:20 PM EDT Office Visit [facility] [address] [place] [id number] Gordo Barfield MD [address] [address] [place] [address] Arrived [facility] Comment on above: Arrived Start: 08-28-2024 End: 11-27-2024 CBC W Auto Differential panel - Blood COMPLETE BLOOD COUNT AND DIFFERENTIAL Lab Routine Vitamin B12 deficiency Other iron deficiency anemia Hypogammaglobulinemia (HCC) Expected: 08/28/2024, Expires: 11/27/2024 [facility] Work Phone: Comment on above: Expected: 08/28/2024, Expires: Start: 08-28-2024 End: 11-27-2024 Cobalamin (Vitamin B12) [Mass/volume] in Serum or Plasma VITAMIN B12 Lab Routine Vitamin B12 deficiency Other iron deficiency anemia Hypogammaglobulinemia (HCC) Expected: 08/28/2024, Expires: 11/27/2024 [facility] Comment on above: Expected: 08/28/2024, Expires: Start: 08-28-2024 End: 11-27-2024 Comprehensive metabolic 2000 panel - Serum or Plasma COMPREHENSIVE METABOLIC PANEL Lab Routine Vitamin B12 deficiency Other iron deficiency anemia Hypogammaglobulinemia (HCC) Expected: 08/28/2024, Expires: 11/27/2024 [facility] Comment on above: Expected: 08/28/2024, Expires: Start: 08-28-2024 End: 11-27-2024 Ferritin [Mass/volume] in Serum or Plasma FERRITIN Lab Routine Vitamin B12 deficiency Other iron deficiency anemia Hypogammaglobulinemia (HCC) Expected: 08/28/2024, Expires: 11/27/2024 [facility] Comment on above: Expected: 08/28/2024, Expires: Start: 08-28-2024 End: 11-27-2024 Folate [Mass/volume] in Serum or Plasma FOLATE, SERUM Lab Routine Vitamin B12 deficiency Other iron deficiency anemia Hypogammaglobulinemia (HCC) Expected: 08/28/2024, Expires: 11/27/2024 [facility] Comment on above: Expected: 08/28/2024, Expires: Start: 08-28-2024 End: 11-27-2024 IgG [Mass/volume] in Serum or Plasma IMMUNOGLOBULIN G Lab Routine Vitamin B12 deficiency Other iron deficiency anemia Hypogammaglobulinemia (HCC) Expected: 08/28/2024, Expires: 11/27/2024 [facility] Comment on above: Expected: 08/28/2024, Expires: Start: 08-28-2024 End: 11-27-2024 Iron and Iron binding capacity panel - Serum or Plasma IRON AND TIBC Lab Routine Vitamin B12 deficiency Other iron deficiency anemia Hypogammaglobulinemia (HCC) Expected: 08/28/2024, Expires: 11/27/2024 [facility] Comment on above: Expected: 08/28/2024, Expires: Start: 08-22-2024 End: 08-22-2024 Patient encounter procedure 08/22/2024 1:30 PM EDT Office Visit [facility] [address] [place] [address] Raj Kitchen MD [address] [place] [address] [facility] Start: 08-22-2024 End: 08-22-2024 Specialty Pharmacy 08/22/2024 10:15 AM EDT Specialty Pharmacy [facility] As Seen on TV [address] [address] Pharmacist, [facility] [address] [place] [address] REFILL- Benlysta- PAx 02/11/25 lv08/17 [facility] Comment on above: REFILL- Benlysta- PAx 02/11/2508/17 Start: 08-17-2024 End: 08-17-2024 Specialty Pharmacy 08/17/2024 10:00 AM EDT Specialty Pharmacy [facility] As Seen on TV [address] [address] Pharmacist, [facility] [address] [place] [address] [place] [address] REFILL- Benlysta- PAx 02/11/25 [facility] Comment on above: REFILL- Benlysta- PAx 02/11/25 Start: 08-15-2024 End: 08-15-2024 Patient encounter procedure 08/15/2024 10:20 AM EDT Office Visit [facility] [address] [facility] [address] [place] [address] Gordo Barfield MD [address] [facility] [address] [place] [address] [facility] Start: 08-08-2024 End: 08-08-2024 ambulatory 08/08/2024 9:30 AM EDT Infusion Center Hematology/Oncology [address] [place], [place] [address] [place] [address] IVIG for hypogammaglobulinemia + b12 Hematology/Oncology Comment on above: IVIG for hypogammaglobulinemia + b12 Start: 08-01-2024 End: 08-01-2024 Patient encounter procedure 08/01/2024 10:30 AM EDT Office Visit [facility] [address] [place] [address] Bernabe English MD [address] [place] [address] [facility] Start: 07-25-2024 End: 07-25-2024 Specialty Pharmacy [facility] Comment on above: REFILL- Benlysta- PAx 02/11/25 Arrived Start: 07-20-2024 End: 07-20-2024 ambulatory 07/20/2024 11:30 AM [facility] Infectious Disease [address] [place] [address] Alhaji Head DO [address] [place] [address] Positive blood cultures [R78.81] Infectious Disease Comment on above: Positive blood cultures [R78.81] Start: 07-20-2024 End: 07-20-2024 Patient encounter procedure 07/20/2024 11:30 AM EST Office Visit Infectious Disease [address] [place] [phone] Alhaji Head DO [address] [place], [place] [id number] Positive blood cultures [R78.81] Infectious Disease Comment on above: Positive blood cultures [R78.81] Start: 07-19-2024 [facility] Start: 07-13-2024 End: 07-13-2024 Patient encounter procedure 07/13/2024 9:20 AM EST Office Visit [address] [place] [address] Lois Holm MD [address] [facility] [address] [place] [address] [facility] Start: 07-12-2024 End: 07-12-2024 Patient encounter procedure 07/12/2024 2:40 PM EST Office Visit Otolaryngology [address] [place] [address] Marky Barnes PA-C [address] [place], [place] [id number] Recurrent Thrush. Otolaryngology Comment on above: Recurrent Thrush. Start: 07-11-2024 End: 07-11-2024 ambulatory 07/11/2024 9:30 AM EST Infusion Center Hematology/Oncology [address] [place] [address] IVIG for hypogammaglobulinemia + b12 Hematology/Oncology Comment on above: IVIG for hypogammaglobulinemia + b12 Start: 07-03-2024 End: 04-02-2025 25-hydroxyvitamin D3 [Mass/volume] in Serum or Plasma VITAMIN D 25 HYDROXY Lab Routine Vitamin D deficiency Expected: 07/03/2024 (Approximate), Expires: 04/02/2025 [facility] Comment on above: Expected: 07/03/2024 (Approximate), Expi res: 04/02/2025 Start: 07-03-2024 End: 04-02-2025 C reactive protein [Mass/volume] in Serum or Plasma C-REACTIVE PROTEIN Lab Routine Elevated sed rate Elevated C-reactive protein (CRP) Expected: 07/03/2024 (Approximate), Expires: 04/02/2025 [facility] Comment on above: Expected: 07/03/2024 (Approximate), Expi res: 04/02/2025 Start: 07-03-2024 End: 04-02-2025 CBC panel - Blood by Automated count COMPLETE BLOOD COUNT Lab Routine Anemia of chronic disease Expected: 07/03/2024 (Approximate), Expires: 04/02/2025 [facility] Comment on above: Expected: 07/03/2024 (Approximate), Expi res: 04/02/2025 Start: 07-03-2024 End: 04-02-2025 Comprehensive metabolic 2000 panel - Serum or Plasma COMPREHENSIVE METABOLIC PANEL Lab Routine Elevated LFTs Expected: 07/03/2024 (Approximate), Expires: 04/02/2025 [facility] Work Phone: Comment on above: Expected: 07/03/2024 (Approximate), Expi res: 04/02/2025 Start: 07-03-2024 End: 04-02-2025 Erythrocyte sedimentation rate SEDIMENTATION RATE, WESTERGREN Lab Routine Elevated sed rate Elevated C-reactive protein (CRP) Expected: 07/03/2024 (Approximate), Expires: 04/02/2025 [facility] Comment on above: Expected: 07/03/2024 (Approximate), Expi res: 04/02/2025 Start: 06-29-2024 End: 06-29-2024 Specialty Pharmacy 06/29/2024 10:00 AM EST Specialty Pharmacy [facility] [place] [address] Pharmacist, [facility] [address] [place] [address] [place] [address] REFILL- Benlysta- PAx 9 [facility] Comment on above: REFILL- Benlysta- PAx 02/11/25 Start: 06-26-2024 End: 06-26-2024 Nursing evaluation of patient and report 06/26/2024 9:45 AM EST Nurse Visit Hematology/Oncology [address] [place] [address] Joanna Hi Nurse Dre [address] [place] [address] B12 Hematology/Oncology Comment on above: B12 Start: 06-26-2024 End: 06-26-2024 ambulatory Hematology/Oncology Comment on above: RTC 3 month IVIG for hypogammagl obulinemia Start: 06-26-2024 End: 06-26-2024 Patient encounter procedure 06/26/2024 8:45 AM EST Office Visit [facility] Laboratory [address] [place] [address] labs [facility] Comment on above: labs Start: 06-14-2024 End: 06-14-2024 Nursing evaluation of patient and report [facility] Comment on above: Abdominal Pain/Diarrhea/Bandar S RAND TACKER order ed/Patient has prep thru MyChart//cc SIBO - Abdominal Gus n/Diarrhea/Bandar S RAND TACKER ordered/Patient has prep thru MyChart//cc Order in Scanned Documents Start: 06-13-2024 End: 09-12-2024 Cobalamin (Vitamin B12) [Mass/volume] in Serum or Plasma [facility] Comment on above: Expected: 06/13/2024, Expires: Start: 06-13-2024 End: 09-12-2024 Ferritin [Mass/volume] in Serum or Plasma [facility] Work Phone: Comment on above: Expected: 06/13/2024, Expires: Start: 06-13-2024 End: 09-12-2024 Folate [Mass/volume] in Serum or Plasma [facility] Comment on above: Expected: 06/13/2024, Expires: Start: 06-13-2024 End: 09-12-2024 Iron and Iron binding capacity panel - Serum or Plasma [facility] Comment on above: Expected: 06/13/2024, Expires: Start: 06-13-2024 End: 06-13-2024 Nursing evaluation of patient and report 06/13/2024 9:45 AM EST Nurse Visit Hematology/Oncology [address] [place] [address] [place] [address] Cele Marshall Nurse Dre [address] [place] [address] B12 Hematology/Oncology Comment on above: B12 Start: 06-13-2024 End: 06-13-2024 ambulatory Hematology/Oncology Comment on above: RTC 3 month IVIG for hypogammagl obulinemia Start: 06-13-2024 End: 06-13-2024 Patient encounter procedure 06/13/2024 8:45 AM EST Office Visit [facility] Laboratory [address] [place] [address] [place] [address] labs [facility] Comment on above: labs Start: 06-06-2024 End: 08-04-2025 MG Breast - bilateral Screening Bilateral screening mammogram Imaging Routine Breast cancer screening by mammogram Expected: 06/06/2024 (Approximate), Expires: 08/04/2025 [facility] Work Phone: Comment on above: Expected: 06/06/2024 (Approximate), Expi res: 08/04/2025 Start: 06-06-2024 End: 08-04-2025 MG Breast - left Diagnostic Left diagnostic mammogram Imaging Routine Breast nodule Expected: 06/06/2024 (Approximate), Expires: 08/04/2025 [facility] Comment on above: Expected: 06/06/2024 (Approximate), Expi res: 08/04/2025 Start: 06-06-2024 End: 06-06-2024 Patient encounter procedure [facility] Comment on above: REFILL- Benlysta- PAx 02/11/25 Start: 05-29-2024 End: 05-29-2024 Nursing evaluation of patient and report 05/29/2024 9:30 AM EST Nurse Visit Hematology/Oncology [address] [place] [address] [place] [address] Cele Marshall Nurse Dre [address] [place] [address] B12 Hematology/Oncology Comment on above: B12 Start: 05-19-2024 End: 05-19-2024 ambulatory 05/19/2024 9:30 AM EST Infusion Center Hematology/Oncology [address] [place] [address] IVIG for hypogammaglobulinemia Hematology/Oncology Comment on above: IVIG for hypogammaglobulinemia Start: 05-12-2024 End: 05-12-2024 Specialty Pharmacy 05/12/2024 10:00 AM EST Specialty Pharmacy [facility] [place] [address] Pharmacist, [facility] [address] [place] [address] [place] [address] REFILL- Benlysta- PAx 02/11/25 [facility] Comment on above: REFILL- Benlysta- PAx 02/11/25 Start: 04-28-2024 End: 04-28-2025 US.doppler Extremity arteries - bilateral for physiologic artery study Vas art doppler lwr bilat mult lev/PVR Vascular Ultrasound Routine Peripheral vascular disease, unspecified ([facility]) Cold extremities Systemic lupus erythematosus ([facility]) Expected: 04/28/2024, Expires: 04/28/2025 [facility] Work Phone: Comment on above: Expected: 04/28/2024, Expires: Start: 04-24-2024 End: 04-24-2024 Nursing evaluation of patient and report 04/24/2024 9:30 AM EST Nurse Visit Hematology/Oncology [address] [place] [address] Cele Marshall Nurse Dre [address] [place] [address] B12 Hematology/Oncology Comment on above: B12 Start: 04-18-2024 End: 04-18-2024 Nursing evaluation of patient and report [facility] Comment on above: [...] lower extremity, unspecified laterality Systemic lupus erythematosus ([facility]) Expected: 04/06/2024, Expires: 2025 [facility] Work Phone: Comment on above: Expected: 04/06/2024, Expires: Start: 03-28-2024 End: 03-28-2024 ambulatory 03/28/2024 1:00 PM [facility] Hematology/Oncology [address] [place] [address] [place] [address] Vera Najera MD [address] [place] [address] 13 wk virtual after labs last week Hematology/Oncology Comment on above: 13 wk virtual after labs last week Start: 03-23-2024 End: 03-23-2025 aPTT in Blood by Coagulation assay APTT Lab Routine Menorrhagia with regular cycle Expected: 03/23/2024 (Approximate), Expires: 03/23/2025 [facility] Comment on above: Expected: 03/23/2024 (Approximate), Expi res: 03/23/2025 Start: 03-23-2024 End: 03-23-2025 US for US PELVIS-TRANSVAG IF INDICATED Imaging Routine Menorrhagia with regular cycle Expected: 03/23/2024 (Approximate), Expires: 03/23/2025 [facility] Comment on above: Expected: 03/23/2024 (Approximate), Expi res: 03/23/2025 Start: 03-21-2024 End: 03-21-2024 Nursing evaluation of patient and report 03/21/2024 11:45 AM EDT Nurse Visit Hematology/Oncology [address] [place] [address] Cele Marshall Nurse Dre [address] [place] [address] b12 Hematology/Oncology Comment on above: b12 Start: 03-21-2024 End: 03-21-2024 Patient encounter procedure 03/21/2024 11:15 AM EDT Office Visit [facility] Laboratory [address] [place] [address] [place] [address] LAb [facility] Comment on above: LAb Start: 03-20-2024 End: 12-29-2024 25-hydroxyvitamin D3 [Mass/volume] in Serum or Plasma VITAMIN D 25 HYDROXY Lab Routine Vitamin D deficiency Expected: 03/20/2024 (Approximate), Expires: 12/29/2024 [facility] Comment on above: Expected: 03/20/2024 (Approximate), Expi res: 12/29/2024 Start: 03-20-2024 End: 12-29-2024 BLOOD TB SCREEN BLOOD TB SCREEN Lab Routine Screening-pulmonary TB Expected: 03/20/2024 (Approximate), Expires: 12/29/2024 [facility] Comment on above: Expected: 03/20/2024 (Approximate), Expi res: 12/29/2024 Start: 03-20-2024 End: 12-29-2024 C reactive protein [Mass/volume] in Serum or Plasma C-REACTIVE PROTEIN Lab Routine Elevated C-reactive protein (CRP) Elevated sed rate Expected: 03/20/2024 (Approximate), Expires: 12/29/2024 [facility] Comment on above: Expected: 03/20/2024 (Approximate), Expi res: 12/29/2024 Start: 03-20-2024 End: 06-19-2024 CBC W Auto Differential panel - Blood COMPLETE BLOOD COUNT AND DIFFERENTIAL Lab Routine Megaloblastic anemia due to vitamin B12 deficiency Elevated sed rate Obstructive sleep apnea syndrome Expected: 03/20/2024 (Approximate), Expires: 06/19/2024 [facility] Comment on above: Expected: 03/20/2024 (Approximate), Expi res: 06/19/2024 Start: 03-20-2024 End: 06-19-2024 Cobalamin (Vitamin B12) [Mass/volume] in Serum or Plasma VITAMIN B12 Lab Routine Megaloblastic anemia due to vitamin B12 deficiency Elevated sed rate Obstructive sleep apnea syndrome Expected: 03/20/2024 (Approximate), Expires: 06/19/2024 [facility] Comment on above: Expected: 03/20/2024 (Approximate), Expi res: 06/19/2024 Start: 03-20-2024 End: 06-19-2024 Comprehensive metabolic 2000 panel - Serum or Plasma COMPREHENSIVE METABOLIC PANEL Lab Routine Megaloblastic anemia due to vitamin B12 deficiency Elevated sed rate Obstructive sleep apnea syndrome Expected: 03/20/2024 (Approximate), Expires: 06/19/2024 [facility] Work Phone: Comment on above: Expected: 03/20/2024 (Approximate), Expi res: 06/19/2024 Start: 03-20-2024 End: 12-29-2024 Erythrocyte sedimentation rate SEDIMENTATION RATE, WESTERGREN Lab Routine Elevated C-reactive protein (CRP) Elevated sed rate Expected: 03/20/2024 (Approximate), Expires: 12/29/2024 [facility] Work Phone: Comment on above: Expected: 03/20/2024 (Approximate), Expi res: 12/29/2024 Start: 03-20-2024 End: 06-19-2024 Ferritin [Mass/volume] in Serum or Plasma FERRITIN Lab Routine Megaloblastic anemia due to vitamin B12 deficiency Elevated sed rate Obstructive sleep apnea syndrome Expected: 03/20/2024 (Approximate), Expires: 06/19/2024 [facility] Comment on above: Expected: 03/20/2024 (Approximate), Expi res: 06/19/2024 Start: 03-20-2024 End: 06-19-2024 Folate [Mass/volume] in Serum or Plasma FOLATE, SERUM Lab Routine Megaloblastic anemia due to vitamin B12 deficiency Elevated sed rate Obstructive sleep apnea syndrome Expected: 03/20/2024 (Approximate), Expires: 06/19/2024 [facility] Comment on above: Expected: 03/20/2024 (Approximate), Expi res: 06/19/2024 Start: 03-20-2024 End: 06-19-2024 IMMUNOGLOBULINS,IGG,IGA,IG M IMMUNOGLOBULINS,IGG,IGA,IG M Lab Routine Megaloblastic anemia due to vitamin B12 deficiency Elevated sed rate Obstructive sleep apnea syndrome Expected: 03/20/2024 (Approximate), Expires: 06/19/2024 [facility] Comment on above: Expected: 03/20/2024 (Approximate), Expi res: 06/19/2024 Start: 03-20-2024 End: 06-19-2024 Iron and Iron binding capacity panel - Serum or Plasma IRON AND TIBC Lab Routine Megaloblastic anemia due to vitamin B12 deficiency Elevated sed rate Obstructive sleep apnea syndrome Expected: 03/20/2024 (Approximate), Expires: 06/19/2024 [facility] Comment on above: Expected: 03/20/2024 (Approximate), Expi res: 06/19/2024 Start: 03-18-2024 End: 03-18-2024 Patient encounter procedure 03/18/2024 9:00 AM EDT [facility]ology [address] [place] [address] Lynne Ni MD [address] [place] [address] May offer 03/18/24 Sat [facility]J 4th floor in person/virtual/phone for lupus Rheumatology Comment on above: May offer 03/18/24 Sat REJ 4th floor in person/virtual/phone for lupus Start: 03-16-2024 Patient referral [facility] Work Phone: Start: 03-16-2024 End: 05-16-2025 US Breast - bilateral Bilateral breast US complete Imaging Routine Nipple discharge Expected: 03/16/2024, Expires: 05/16/2025 [facility] Work Phone: Comment on above: [...] Visit Hematology/Oncology [address] [place] [address] Cele Marshall Nurse Dre [address] [place] [address] b12 Hematology/Oncology Comment on above: b12 Start: 02-22-2024 End: 02-22-2024 Patient encounter procedure 02/22/2024 11:15 AM EDT Office Visit [facility] Laboratory [address] [place] [place] [address] LAb [facility] Comment on above: LAb Start: 02-21-2024 End: 02-21-2024 Nursing evaluation of patient and report 02/21/2024 10:45 AM EDT Nurse Visit Hematology/Oncology [address] [place] [address] Cele Marshall Nurse Dre [address] [place] [address] b12 Hematology/Oncology Comment on above: b12 Start: 02-21-2024 End: 02-21-2024 Patient encounter procedure 02/21/2024 10:30 AM EDT Office Visit [facility] Laboratory [address] [place] [address] LAb [facility] Comment on above: LAb Start: 02-16-2024 [facility] Start: 02-14-2024 End: 02-14-2024 Follow-up encounter Neurology Comment on above: Cpap follow up REFILL- Benlysta- PA x 02/04/24- NCA 09/2024-, ND 02/23 Start: 02-09-2024 End: 02-09-2024 Patient encounter procedure 02/09/2024 8:00 AM EDT Office Visit [facility] NEURO [address] [id number] Zita Cuellar MANAGER RELIABILITY [address] [facility] [address], [place] [address] [facility] [address] Start: 01-27-2024 End: 04-27-2024 Bacteria identified in Blood by Culture BLOOD CULTURE Microbiology Routine Pseudomonas infection Expected: 01/27/2024, Expires: 04/27/2024 [facility] Work Phone: Comment on above: Expected: 01/27/2024, Expires: Start: 01-27-2024 End: 01-27-2024 Follow-up encounter 01/27/2024 10:00 AM EDT [facility] Infectious Disease [address] [facility] [place] [place] [address] [place] [address] [place] [address] follow up Infectious Disease Comment on above: follow up Start: 01-25-2024 End: 01-25-2024 Nursing evaluation of patient and report Hematology/Oncology Comment on above: b12 B12(change date) Start: 01-25-2024 End: 01-25-2024 Patient encounter procedure [facility] Comment on above: LAb NO LAB ORDERS LAb Start: 01-24-2024 Influenza vaccination Influenza Vaccine (#1) [facility] Comment on above: Postponed from 01/22/2023 (Patient Refus ed) Start: 01-23-2024 Covid-19 Vaccine ( season) Covid-19 Vaccine ( season) [facility] Start: 01-23-2024 Covid-19 Vaccine ( season) Covid-19 Vaccine ( season) [facility] Start: 01-23-2024 Influenza vaccination [facility] Start: 01-20-2024 End: 01-20-2024 Specialty Pharmacy [facility] Comment on above: refill - benlysta- NCA 09/2024-- pa exp: 02/04/24- 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 Start: 12-27-2023 End: 12-27-2023 Nursing evaluation of patient and report 12/27/2023 12:00 PM EDT Nurse Visit Hematology/Oncology [address] [place] [address] Cele Marshall Nurse Dre [address] [place] [address] b12 Hematology/Oncology Comment on above: b12 Start: 12-27-2023 End: 12-27-2023 Follow-up encounter 12/27/2023 11:30 AM EDT Visit (SP) Office Hematology/Oncology [address] [place] [address] Neda Hill, PAJuliusC [address] [place] [address] 13 week follow up, labs 1 week before Hematology/Oncology Comment on above: 13 week follow up, labs 1 week before Start: 12-27-2023 End: 12-27-2023 Patient encounter procedure 12/27/2023 11:15 AM EDT Office Visit [facility] Laboratory [address] [place] [address] LAb [facility] Comment on above: LAb Start: 12-13-2023 End: 12-13-2023 Specialty Pharmacy 12/13/2023 10:00 AM EDT Specialty Pharmacy [facility] [address] [place] [address] Pharmacist, [facility] [address] [place] [address] [place] [address] refill - benlysta- NCA - pa exp: 02/04/24- [facility] Comment on above: refill - benlysta- NCA - pa exp: 02/04/24- Start: 12-10-2023 End: 12-10-2023 Follow-up encounter 12/10/2023 10:45 AM EDT Visit (SP) Office Hematology/Oncology [address] [place] [address] Vera Najera MD [address] [place] [address] 13 week follow up, labs 1 week before Hematology/Oncology Comment on above: 13 week follow up, labs 1 week before Start: 12-04-2023 End: 09-03-2024 25-hydroxyvitamin D3 [Mass/volume] in Serum or Plasma VITAMIN D 25 HYDROXY Lab Routine Vitamin D deficiency Expected: 12/04/2023 (Approximate), Expires: 09/03/2024 [facility] Work Phone: Comment on above: Expected: 12/04/2023 (Approximate), Expi res: 09/03/2024 Start: 12-04-2023 End: 09-03-2024 C reactive protein [Mass/volume] in Serum or Plasma C-REACTIVE PROTEIN Lab Routine Elevated sed rate Elevated C-reactive protein (CRP) Expected: 12/04/2023 (Approximate), Expires: 09/03/2024 [facility] Work Phone: Comment on above: Expected: 12/04/2023 (Approximate), Expi res: 09/03/2024 Start: 12-04-2023 End: 09-03-2024 CBC panel - Blood by Automated count COMPLETE BLOOD COUNT Lab Routine Anemia of chronic disease Expected: 12/04/2023 (Approximate), Expires: 09/03/2024 [facility] Work Phone: Comment on above: Expected: 12/04/2023 (Approximate), Expi res: 09/03/2024 Start: 12-04-2023 End: 09-03-2024 Comprehensive metabolic 2000 panel - Serum or Plasma COMPREHENSIVE METABOLIC PANEL Lab Routine Elevated LFTs Expected: 12/04/2023 (Approximate), Expires: 09/03/2024 [facility] Work Phone: Comment on above: Expected: 12/04/2023 (Approximate), Expi res: 09/03/2024 Start: 12-04-2023 End: 09-03-2024 Erythrocyte sedimentation rate SEDIMENTATION RATE, WESTERGREN Lab Routine Elevated sed rate Elevated C-reactive protein (CRP) Expected: 12/04/2023 (Approximate), Expires: 09/03/2024 [facility] Work Phone: Comment on above: Expected: 12/04/2023 (Approximate), Expi res: 09/03/2024 Start: 12-03-2023 End: 12-03-2023 Nursing evaluation of patient and report 12/03/2023 11:00 AM EDT Nurse Visit Hematology/Oncology [address] [place] [address] Cele Marshall Nurse Dre [address] [place] [address] b12 Hematology/Oncology Comment on above: b12 Start: 12-03-2023 End: 12-03-2023 Patient encounter procedure 12/03/2023 10:45 AM EDT Office Visit [facility] [address] [place] [address] lab [facility] Comment on above: lab Start: 12-02-2023 End: 09-08-2024 CBC W Auto Differential panel - Blood COMPLETE BLOOD COUNT AND DIFFERENTIAL Lab Routine Megaloblastic anemia due to vitamin B12 deficiency High total serum IgM Expected: 12/02/2023 (Approximate), Expires: 09/08/2024 [facility] Work Phone: Comment on above: Expected: 12/02/2023 (Approximate), Expi res: 09/08/2024 Start: 12-02-2023 End: 09-08-2024 Cobalamin (Vitamin B12) [Mass/volume] in Serum or Plasma VITAMIN B12 Lab Routine Megaloblastic anemia due to vitamin B12 deficiency High total serum IgM Expected: 12/02/2023 (Approximate), Expires: 09/08/2024 [facility] Work Phone: Comment on above: Expected: 12/02/2023 (Approximate), Expi res: 09/08/2024 Start: 12-02-2023 End: 09-08-2024 Comprehensive metabolic 2000 panel - Serum or Plasma COMPREHENSIVE METABOLIC PANEL Lab Routine Megaloblastic anemia due to vitamin B12 deficiency High total serum IgM Expected: 12/02/2023 (Approximate), Expires: 09/08/2024 [facility] Work Phone: Comment on above: Expected: 12/02/2023 (Approximate), Expi res: 09/08/2024 Start: 12-02-2023 End: 03-02-2024 Erythrocyte sedimentation rate SEDIMENTATION RATE, WESTERGREN Lab Routine Megaloblastic anemia due to vitamin B12 deficiency High total serum IgM Expected: 12/02/2023 (Approximate), Expires: 03/02/2024 [facility] Work Phone: Comment on above: Expected: 12/02/2023 (Approximate), Expi res: 03/02/2024 Start: 12-02-2023 End: 09-08-2024 Ferritin [Mass/volume] in Serum or Plasma FERRITIN Lab Routine Megaloblastic anemia due to vitamin B12 deficiency High total serum IgM Expected: 12/02/2023 (Approximate), Expires: 09/08/2024 [facility] Work Phone: Comment on above: Expected: 12/02/2023 (Approximate), Expi res: 09/08/2024 Start: 12-02-2023 End: 09-08-2024 Folate [Mass/volume] in Serum or Plasma FOLATE, SERUM Lab Routine Megaloblastic anemia due to vitamin B12 deficiency High total serum IgM Expected: 12/02/2023 (Approximate), Expires: 09/08/2024 [facility] Work Phone: Comment on above: Expected: 12/02/2023 (Approximate), Expi res: 09/08/2024 Start: 12-02-2023 End: 03-02-2024 IgA [Mass/volume] in Serum or Plasma IMMUNOGLOBULIN A Lab Routine Megaloblastic anemia due to vitamin B12 deficiency High total serum IgM Expected: 12/02/2023 (Approximate), Expires: 03/02/2024 [facility] Work Phone: Comment on above: Expected: 12/02/2023 (Approximate), Expi res: 03/02/2024 Start: 12-02-2023 End: 03-02-2024 IgE [Units/volume] in Serum or Plasma IMMUNOGLOBULIN E Lab Routine Megaloblastic anemia due to vitamin B12 deficiency High total serum IgM Expected: 12/02/2023 (Approximate), Expires: 03/02/2024 [facility] Work Phone: Comment on above: Expected: 12/02/2023 (Approximate), Expi res: 03/02/2024 Start: 12-02-2023 End: 03-02-2024 IgG [Mass/volume] in Serum or Plasma IMMUNOGLOBULIN G Lab Routine Megaloblastic anemia due to vitamin B12 deficiency High total serum IgM Expected: 12/02/2023 (Approximate), Expires: 03/02/2024 [facility] Work Phone: Comment on above: Expected: 12/02/2023 (Approximate), Expi res: 03/02/2024 Start: 12-02-2023 End: 03-02-2024 IgM [Mass/volume] in Serum or Plasma IMMUNOGLOBULIN M Lab Routine Megaloblastic anemia due to vitamin B12 deficiency High total serum IgM Expected: 12/02/2023 (Approximate), Expires: 03/02/2024 [facility] Work Phone: Comment on above: Expected: 12/02/2023 (Approximate), Expi res: 03/02/2024 Start: 12-02-2023 End: 09-08-2024 Iron and Iron binding capacity panel - Serum or Plasma IRON AND TIBC Lab Routine Megaloblastic anemia due to vitamin B12 deficiency High total serum IgM Expected: 12/02/2023 (Approximate), Expires: 09/08/2024 [facility] Work Phone: Comment on above: Expected: 12/02/2023 (Approximate), Expi res: 09/08/2024 Start: 11-29-2023 End: 11-29-2023 Nursing evaluation of patient and report 11/29/2023 2:15 PM EDT Nurse Visit Hematology/Oncology [address] [place] [address] Cele Marshall Nurse Dre [address] [place] [address] b12 Hematology/Oncology Comment on above: b12 Start: 11-15-2023 End: 11-15-2023 Specialty Pharmacy 11/15/2023 10:00 AM EDT Specialty Pharmacy [facility] [address] [place], [place] [id number] Pharmacist, [facility] [address] [place] [address] [place] [address] refill - [email or web address]- NCA - pa exp: 02/04/24- [facility] Comment on above: refill - benlysta- NCA - pa exp: 02/04/24- Start: 10-29-2023 End: 10-29-2023 Nursing evaluation of patient and report 10/29/2023 11:00 AM EDT Nurse Visit Hematology/Oncology [address] [place] [address] Cele Marshall Nurse Dre [address] [place] [address] b12 Hematology/Oncology Comment on above: b12 Start: 10-15-2023 End: 10-15-2023 Specialty Pharmacy 10/15/2023 10:00 AM EDT Specialty Pharmacy [facility] [address] [place] [id number] Pharmacist, [facility] [address] [place] [address] [place] [address] refill - [email or web address]-urs- pa exp: 02/04/24-l/m 10/11 [facility] Comment on above: refill - benlysta-Thursdays- pa exp: 01/22 08/14-l/m 10/11 Start: 10-12-2023 End: 10-12-2023 Specialty Pharmacy 10/12/2023 10:00 AM EDT Specialty Pharmacy [facility] [address] [place] [id number] Pharmacist, [facility] [address] [place] [address] [place] [address] refill - [email or web address]-Thursdays- pa exp: 02/04/24- [facility] Comment on above: refill - benlysta-Thursdays- pa exp: 01/22 08/14- Start: 10-05-2023 End: 10-05-2023 Patient encounter procedure 10/05/2023 8:00 AM EDT [facility] [address] [place] [address] Lynne Ni MD [address] [place], [place] [id number] 6 mo f/u for Lupus Rheumatology Comment on above: 6 mo f/u for Lupus Start: 10-01-2023 End: 10-01-2023 Nursing evaluation of patient and report 10/01/2023 11:00 AM EDT Nurse Visit Hematology/Oncology [address] [place] [address] Cele Marshall Nurse Dre [address] [place] [address] b12 Hematology/Oncology Comment on above: b12 Start: 09-16-2023 End: 09-16-2023 Specialty Pharmacy 09/16/2023 10:00 AM EDT Specialty Pharmacy [facility] [address] [place] [phone] Pharmacist, [facility] [address] [place] [address] [place] [address] refill - [email or web address]-Thursdays- pa exp: 02/04/24-lvm [facility] Comment on above: refill - benlysta-Thursdays- pa exp: 01/22 08/14-lvm Start: 09-13-2023 End: 09-13-2023 Patient encounter procedure 09/13/2023 9:00 AM EDT Office Visit [facility] [address] [place] [address] Kade Richardson MD [address] [facility] [address] Chery [address] [place] [phone] [facility] Start: 07-19-2023 End: 07-19-2023 Patient encounter procedure [facility] Start: 07-15-2023 End: 07-15-2023 Patient encounter procedure 07/15/2023 10:50 AM EST Office Visit [facility] [address] [place] [address] Bernabe English MD [address] [place] [address] [facility] Start: 07-06-2023 End: 07-06-2023 Patient encounter procedure 07/06/2023 2:30 PM EST Office Visit [facility] [address]ERY [address] [place] [phone] Kade Richardson MD [address] [facility] [address] [place] [id number] [facility] [address] Start: 07-06-2023 End: 07-06-2024 Protein electrophoresis, serum Protein electrophoresis, serum Lab Routine Autoimmune disease (CMS/HCC) Autonomic dysfunction Expected: 07/06/2023 (Approximate), Expires: 07/06/2024 [facility] Work Phone: Comment on above: Expected: 07/06/2023 (Approximate), Expi res: 07/06/2024 Start: 07-06-2023 End: 07-06-2024 Protein electrophoresis, urine Protein electrophoresis, urine Lab Routine Autoimmune disease (CMS/HCC) Autonomic dysfunction Expected: 07/06/2023 (Approximate), Expires: 07/06/2024 [facility] Comment on above: Expected: 07/06/2023 (Approximate), Expi res: 07/06/2024 Start: 06-09-2023 End: 06-09-2024 Holter monitor study Holter Or Event [facility] Routine Irregular heart rate Expected: 06/09/2023 (Approximate), Expires: 06/09/[address] [facility] Work Phone: Comment on above: Expected: 06/09/2023 (Approximate), Expi res: 06/09/2024 Start: 06-09-2023 End: 06-09-2024 Lipid 1996 panel - Serum or Plasma Lipid Panel Lab Routine Primary hypertension Expected: 06/09/2023 (Approximate), Expires: 06/09/[address] [facility] Work Phone: Comment on above: Expected: 06/09/2023 (Approximate), Expi res: 06/09/2024 Start: 06-09-2023 End: 06-09-2024 Thyrotropin [Units/volume] in Serum or Plasma Thyroid Stimulating Hormone Lab Routine Irregular heart rate Expected: 06/09/2023 (Approximate), Expires: 06/09/[address] [facility] Work Phone: Comment on above: Expected: 06/09/2023 (Approximate), Expi res: 06/09/2024 Start: 06-09-2023 End: 06-09-2024 Thyroxine (T4) free [Mass/volume] in Serum or Plasma Thyroxine, Free Lab Routine Irregular heart rate Expected: 06/09/2023 (Approximate), Expires: 06/09/[address] [facility] Work Phone: Comment on above: [...] D deficiency Expected: 04/25/2023 (Approximate), Expires: 01/25/2024 [facility] Work Phone: Comment on above: Expected: 04/25/2023 (Approximate), Expi res: 01/25/2024 Start: 04-25-2023 End: 01-25-2024 C reactive protein [Mass/volume] in Serum or Plasma C-REACTIVE PROTEIN (CRP) Lab Routine Elevated sed rate Elevated C-reactive protein (CRP) Expected: 04/25/2023 (Approximate), Expires: 01/25/2024 [facility] Work Phone: Comment on above: Expected: 04/25/2023 (Approximate), Expi res: 01/25/2024 Start: 04-25-2023 End: 01-25-2024 CBC panel - Blood by Automated count CBC Lab Routine Anemia of chronic disease Expected: 04/25/2023 (Approximate), Expires: 01/25/2024 [facility] Work Phone: Comment on above: Expected: 04/25/2023 (Approximate), Expi res: 01/25/2024 Start: 04-25-2023 End: 01-25-2024 Comprehensive metabolic 2000 panel - Serum or Plasma COMP METABOLIC PANEL Lab Routine Elevated LFTs Expected: 04/25/2023 (Approximate), Expires: 01/25/2024 [facility] Work Phone: Comment on above: Expected: 04/25/2023 (Approximate), Expi res: 01/25/2024 Start: 04-25-2023 End: 01-25-2024 Erythrocyte sedimentation rate SED RATE WESTERGREN Lab Routine Elevated sed rate Elevated C-reactive protein (CRP) Expected: 04/25/2023 (Approximate), Expires: 01/25/2024 [facility] Work Phone: Comment on above: Expected: 04/25/2023 (Approximate), Expi res: 01/25/2024 Start: 04-20-2023 COVID-19 Vaccine (4 - Pfizer risk series) COVID-19 Vaccine (4 - Pfizer risk series) [facility] Start: 04-20-2023 Covid-19 Vaccine ( season) Covid-19 Vaccine ( season) [facility] Start: 04-20-2023 Covid-19 Vaccine () Covid-19 Vaccine () [facility] Start: 04-16-2023 End: 02-20-2024 CBC W Auto Differential panel - Blood CBC + DIFF Lab Routine Megaloblastic anemia due to vitamin B12 deficiency Elevated sed rate Chronic fatigue and malaise High total serum IgM JOSE RAFAEL (obstructive sleep apnea) Expected: 04/16/2023 (Approximate), Expires: 02/20/2024 [facility] Work Phone: Comment on above: Expected: 04/16/2023 (Approximate), Expi res: 02/20/2024 Start: 04-16-2023 End: 02-20-2024 Cobalamin (Vitamin B12) [Mass/volume] in Serum or Plasma VITAMIN B12 BLOOD Lab Routine Megaloblastic anemia due to vitamin B12 deficiency Elevated sed rate Chronic fatigue and malaise High total serum IgM JOSE RAFAEL (obstructive sleep apnea) Expected: 04/16/2023 (Approximate), Expires: 02/20/2024 [facility] Work Phone: Comment on above: Expected: 04/16/2023 (Approximate), Expi res: 02/20/2024 Start: 04-16-2023 End: 02-20-2024 Comprehensive metabolic 2000 panel - Serum or Plasma COMP METABOLIC PANEL Lab Routine Megaloblastic anemia due to vitamin B12 deficiency Elevated sed rate Chronic fatigue and malaise High total serum IgM JOSE RAFAEL (obstructive sleep apnea) Expected: 04/16/2023 (Approximate), Expires: 02/20/2024 [facility] Work Phone: Comment on above: Expected: 04/16/2023 (Approximate), Expi res: 02/20/2024 Start: 04-16-2023 End: 02-20-2024 Ferritin [Mass/volume] in Serum or Plasma FERRITIN BLD Lab Routine Megaloblastic anemia due to vitamin B12 deficiency Elevated sed rate Chronic fatigue and malaise High total serum IgM JOSE RAFAEL (obstructive sleep apnea) Expected: 04/16/2023 (Approximate), Expires: 02/20/2024 [facility] Work Phone: Comment on above: Expected: 04/16/2023 (Approximate), Expi res: 02/20/2024 Start: 04-16-2023 End: 02-20-2024 Folate [Mass/volume] in Serum or Plasma FOLATE SERUM Lab Routine Megaloblastic anemia due to vitamin B12 deficiency Elevated sed rate Chronic fatigue and malaise High total serum IgM JOSE RAFAEL (obstructive sleep apnea) Expected: 04/16/2023 (Approximate), Expires: 02/20/2024 [facility] Work Phone: Comment on above: Expected: 04/16/2023 (Approximate), Expi res: 02/20/2024 Start: 04-16-2023 End: 02-20-2024 Iron and Iron binding capacity panel - Serum or Plasma IRON + TIBC Lab Routine Megaloblastic anemia due to vitamin B12 deficiency Elevated sed rate Chronic fatigue and malaise High total serum IgM JOSE RAFAEL (obstructive sleep apnea) Expected: 04/16/2023 (Approximate), Expires: 02/20/2024 [facility] Work Phone: Comment on above: Expected: 04/16/2023 (Approximate), Expi res: 02/20/2024 Start: 03-23-2023 COVID-19 Vaccine (3 - Pfizer risk series) COVID-19 Vaccine (3 - Pfizer risk series) [facility] Start: 03-17-2023 Diabetes mellitus screening Diabetes Screening [facility] Start: 03-10-2023 End: 06-09-2023 Insulin [Units/volume] in Serum or Plasma INSULIN ASSAY BLOOD Lab Routine Insulin resistance, unspecified Expected: 03/10/2023, Expires: 06/09/2023 [facility] Work Phone: Comment on above: Expected: 03/10/2023, Expires: Start: 03-10-2023 End: 06-09-2023 INSULIN ANTIBODY BLD INSULIN ANTIBODY BLD Lab Routine Insulin resistance, unspecified Expected: 03/10/2023, Expires: 06/09/2023 [facility] Work Phone: Comment on above: Expected: 03/10/2023, Expires: Start: 02-11-2023 End: 02-08-2024 [id number] [Mass/volume] in Serum or Plasma B2 MICROGLOBULIN B Lab Routine Megaloblastic anemia due to vitamin B12 deficiency High total serum IgM Elevated sed rate Expected: 02/11/2023 (Approximate), Expires: 02/08/2024 [facility] Work Phone: Comment on above: Expected: 02/11/2023 (Approximate), Expi res: 02/08/2024 Start: 02-11-2023 End: 02-08-2024 Calcium.ionized [Moles/volume] in Blood CALCIUM IONIZED BLOOD Lab Routine Megaloblastic anemia due to vitamin B12 deficiency High total serum IgM Elevated sed rate Expected: 02/11/2023 (Approximate), Expires: 02/08/2024 [facility] Work Phone: Comment on above: Expected: 02/11/2023 (Approximate), Expi res: 02/08/2024 Start: 02-11-2023 End: 02-08-2024 CBC W Auto Differential panel - Blood CBC + DIFF Lab Routine Megaloblastic anemia due to vitamin B12 deficiency High total serum IgM Elevated sed rate Expected: 02/11/2023 (Approximate), Expires: 02/08/2024 [facility] Work Phone: Comment on above: Expected: 02/11/2023 (Approximate), Expi res: 02/08/2024 Start: 02-11-2023 End: 02-08-2024 Cobalamin (Vitamin B12) [Mass/volume] in Serum or Plasma VITAMIN B12 BLOOD Lab Routine Megaloblastic anemia due to vitamin B12 deficiency High total serum IgM Elevated sed rate Expected: 02/11/2023 (Approximate), Expires: 02/08/2024 [facility] Work Phone: Comment on above: Expected: 02/11/2023 (Approximate), Expi res: 02/08/2024 Start: 02-11-2023 End: 02-08-2024 Comprehensive metabolic 2000 panel - Serum or Plasma COMP METABOLIC PANEL Lab Routine Megaloblastic anemia due to vitamin B12 deficiency High total serum IgM Elevated sed rate Expected: 02/11/2023 (Approximate), Expires: 02/08/2024 [facility] Work Phone: Comment on above: Expected: 02/11/2023 (Approximate), Expi res: 02/08/2024 Start: 02-11-2023 End: 02-08-2024 Ferritin [Mass/volume] in Serum or Plasma FERRITIN BLD Lab Routine Megaloblastic anemia due to vitamin B12 deficiency High total serum IgM Elevated sed rate Expected: 02/11/2023 (Approximate), Expires: 02/08/2024 [facility] Work Phone: Comment on above: Expected: 02/11/2023 (Approximate), Expi res: 02/08/2024 Start: 02-11-2023 End: 02-08-2024 Folate [Mass/volume] in Serum or Plasma FOLATE SERUM Lab Routine Megaloblastic anemia due to vitamin B12 deficiency High total serum IgM Elevated sed rate Expected: 02/11/2023 (Approximate), Expires: 02/08/2024 [facility] Work Phone: Comment on above: Expected: 02/11/2023 (Approximate), Expi res: 02/08/2024 Start: 02-11-2023 End: 02-08-2024 Iron and Iron binding capacity panel - Serum or Plasma IRON + TIBC Lab Routine Megaloblastic anemia due to vitamin B12 deficiency High total serum IgM Elevated sed rate Expected: 02/11/2023 (Approximate), Expires: 02/08/2024 [facility] Work Phone: Comment on above: Expected: 02/11/2023 (Approximate), Expi res: 02/08/2024 Start: 02-11-2023 End: 04-13-2023 KAPPA/FARMER,FREE,SER KAPPA/FARMER,FREE,SER Lab Routine Megaloblastic anemia due to vitamin B12 deficiency High total serum IgM Elevated sed rate Expected: 02/11/2023 (Approximate), Expires: 04/13/2023 [facility] Work Phone: Comment on above: Expected: 02/11/2023 (Approximate), Expi res: 04/13/2023 Start: 02-11-2023 End: 02-08-2024 Lactate dehydrogenase [Enzymatic activity/volume] in Serum or Plasma LD LACTATE DEHYDRO Lab Routine Megaloblastic anemia due to vitamin B12 deficiency High total serum IgM Elevated sed rate Expected: 02/11/2023 (Approximate), Expires: 02/08/2024 [facility] Work Phone: Comment on above: Expected: 02/11/2023 (Approximate), Expi res: 02/08/2024 Start: 02-11-2023 End: 02-08-2024 MONOCLONAL PROTEIN, SERUM (BLOOD) MONOCLONAL PROTEIN, SERUM (BLOOD) Lab Routine Megaloblastic anemia due to vitamin B12 deficiency High total serum IgM Elevated sed rate Expected: 02/11/2023 (Approximate), Expires: 02/08/2024 [facility] Work Phone: Comment on above: Expected: 02/11/2023 (Approximate), Expi res: 02/08/2024 Start: 02-11-2023 End: 02-08-2024 Phosphate [Mass/volume] in Serum or Plasma PHOSPHORUS INORGANIC Lab Routine Megaloblastic anemia due to vitamin B12 deficiency High total serum IgM Elevated sed rate Expected: 02/11/2023 (Approximate), Expires: 02/08/2024 [facility] Work Phone: Comment on above: Expected: 02/11/2023 (Approximate), Expi res: 02/08/2024 Start: 02-11-2023 End: 02-08-2024 PROTEIN ELECTROPHORESIS SERUM W/INTERP PROTEIN ELECTROPHORESIS SERUM W/INTERP Lab Routine Megaloblastic anemia due to vitamin B12 deficiency High total serum IgM Elevated sed rate Expected: 02/11/2023 (Approximate), Expires: 02/08/2024 [facility] Work Phone: Comment on above: Expected: 02/11/2023 (Approximate), Expi res: 02/08/2024 Start: 02-11-2023 End: 02-08-2024 Urate [Mass/volume] in Serum or Plasma URIC ACID BLOOD Lab Routine Megaloblastic anemia due to vitamin B12 deficiency High total serum IgM Elevated sed rate Expected: 02/11/2023 (Approximate), Expires: 02/08/2024 [facility] Work Phone: Comment on above: Expected: 02/11/2023 (Approximate), Expi res: 02/08/2024 Start: 01-22-2023 Influenza vaccination [facility] Start: 12-17-2022 End: 10-23-2023 CBC W Auto Differential panel - Blood CBC + DIFF Lab Routine Megaloblastic anemia due to vitamin B12 deficiency Expected: 12/17/2022 (Approximate), Expires: 10/23/2023 [facility] Work Phone: Comment on above: Expected: 12/17/2022 (Approximate), Expi res: 10/23/2023 Start: 12-17-2022 End: 10-23-2023 Cobalamin (Vitamin B12) [Mass/volume] in Serum or Plasma VITAMIN B12 BLOOD Lab Routine Megaloblastic anemia due to vitamin B12 deficiency Expected: 12/17/2022 (Approximate), Expires: 10/23/2023 [facility] Work Phone: Comment on above: Expected: 12/17/2022 (Approximate), Expi res: 10/23/2023 Start: 12-17-2022 End: 10-23-2023 Comprehensive metabolic 2000 panel - Serum or Plasma COMP METABOLIC PANEL Lab Routine Megaloblastic anemia due to vitamin B12 deficiency Expected: 12/17/2022 (Approximate), Expires: 10/23/2023 [facility] Work Phone: Comment on above: Expected: 12/17/2022 (Approximate), Expi res: 10/23/2023 Start: 12-17-2022 End: 10-23-2023 Ferritin [Mass/volume] in Serum or Plasma FERRITIN BLD Lab Routine Megaloblastic anemia due to vitamin B12 deficiency Expected: 12/17/2022 (Approximate), Expires: 10/23/2023 [facility] Work Phone: Comment on above: Expected: 12/17/2022 (Approximate), Expi res: 10/23/2023 Start: 12-17-2022 End: 10-23-2023 Folate [Mass/volume] in Serum or Plasma FOLATE SERUM Lab Routine Megaloblastic anemia due to vitamin B12 deficiency Expected: 12/17/2022 (Approximate), Expires: 10/23/2023 [facility] Work Phone: Comment on above: Expected: 12/17/2022 (Approximate), Expi res: 10/23/2023 Start: 12-17-2022 End: 10-23-2023 Iron and Iron binding capacity panel - Serum or Plasma IRON + TIBC Lab Routine Megaloblastic anemia due to vitamin B12 deficiency Expected: 12/17/2022 (Approximate), Expires: 10/23/2023 [facility] Work Phone: Comment on above: Expected: 12/17/2022 (Approximate), Expi res: 10/23/2023 Start: 10-23-2022 End: 12-23-2022 25-hydroxyvitamin D3 [Mass/volume] in Serum or Plasma VITAMIN D 25 HYDROXY Lab Routine Megaloblastic anemia due to vitamin B12 deficiency Elevated sed rate High total serum IgM Chronic fatigue and malaise JOSE RAFAEL (obstructive sleep apnea) Expected: 10/23/2022, Expires: 12/23/2022 [facility] Work Phone: Comment on above: Expected: 10/23/2022, Expires: Start: 10-23-2022 End: 12-23-2022 C reactive protein [Mass/volume] in Serum or Plasma C-REACTIVE PROTEIN (CRP) Lab Routine Megaloblastic anemia due to vitamin B12 deficiency Elevated sed rate High total serum IgM Chronic fatigue and malaise JOSE RAFAEL (obstructive sleep apnea) Expected: 10/23/2022, Expires: 12/23/2022 [facility] Work Phone: Comment on above: Expected: 10/23/2022, Expires: Start: 10-23-2022 End: 12-23-2022 CBC W Auto Differential panel - Blood CBC + DIFF Lab Routine Megaloblastic anemia due to vitamin B12 deficiency Elevated sed rate High total serum IgM Chronic fatigue and malaise JOSE RAFAEL (obstructive sleep apnea) Expected: 10/23/2022, Expires: 12/23/2022 [facility] Work Phone: Comment on above: Expected: 10/23/2022, Expires: Start: 10-23-2022 End: 12-23-2022 Cobalamin (Vitamin B12) [Mass/volume] in Serum or Plasma VITAMIN B12 BLOOD Lab Routine Megaloblastic anemia due to vitamin B12 deficiency Elevated sed rate High total serum IgM Chronic fatigue and malaise JOSE RAFAEL (obstructive sleep apnea) Expected: 10/23/2022, Expires: 12/23/2022 [facility] Work Phone: Comment on above: Expected: 10/23/2022, Expires: Start: 10-23-2022 End: 12-23-2022 Comprehensive metabolic 2000 panel - Serum or Plasma COMP METABOLIC PANEL Lab Routine Megaloblastic anemia due to vitamin B12 deficiency Elevated sed rate High total serum IgM Chronic fatigue and malaise JOSE RAFAEL (obstructive sleep apnea) Expected: 10/23/2022, Expires: 12/23/2022 [facility] Work Phone: Comment on above: Expected: 10/23/2022, Expires: Start: 10-23-2022 End: 12-23-2022 Erythrocyte sedimentation rate SED RATE WESTERGREN Lab Routine Megaloblastic anemia due to vitamin B12 deficiency Elevated sed rate High total serum IgM Chronic fatigue and malaise JOSE RAFAEL (obstructive sleep apnea) Expected: 10/23/2022, Expires: 12/23/2022 [facility] Work Phone: Comment on above: Expected: 10/23/2022, Expires: 3 Start: 10-23-2022 End: 12-23-2022 Lactate dehydrogenase [Enzymatic activity/volume] in Serum or Plasma LD LACTATE DEHYDRO Lab Routine Megaloblastic anemia due to vitamin B12 deficiency Elevated sed rate High total serum IgM Chronic fatigue and malaise JOSE RAFAEL (obstructive sleep apnea) Expected: 10/23/2022, Expires: 12/23/2022 [facility] Work Phone: Comment on above: Expected: 10/23/2022, Expires: Start: 10-23-2022 End: 12-23-2022 MONOCLONAL PROTEIN, SERUM (BLOOD) MONOCLONAL PROTEIN, SERUM (BLOOD) Lab Routine Megaloblastic anemia due to vitamin B12 deficiency Elevated sed rate High total serum IgM Chronic fatigue and malaise JOSE RAFAEL (obstructive sleep apnea) Expected: 10/23/2022, Expires: 12/23/2022 [facility] Work Phone: Comment on above: Expected: 10/23/2022, Expires: Start: 10-23-2022 End: 12-23-2022 PROT ELECT SERUM WITH DANA AND INTERP PROT ELECT SERUM WITH DANA AND INTERP Lab Routine Megaloblastic anemia due to vitamin B12 deficiency Elevated sed rate High total serum IgM Chronic fatigue and malaise JOSE RAFAEL (obstructive sleep apnea) Expected: 10/23/2022, Expires: 12/23/2022 [facility] Work Phone: Comment on above: Expected: 10/23/2022, Expires: 3 Start: 09-19-2022 End: 08-20-2023 CBC panel - Blood by Automated count CBC Lab Routine Anemia of chronic disease Expected: 09/19/2022 (Approximate), Expires: 08/20/2023 [facility] Work Phone: Comment on above: Expected: 09/19/2022 (Approximate), Expi res: 08/20/2023 Start: 09-19-2022 End: 08-20-2023 Comprehensive metabolic 2000 panel - Serum or Plasma COMP METABOLIC PANEL Lab Routine Elevated LFTs Expected: 09/19/2022 (Approximate), Expires: 08/20/2023 [facility] Work Phone: Comment on above: Expected: 09/19/2022 (Approximate), Expi res: 08/20/2023 Start: 09-19-2022 End: 11-19-2022 TPMT PHENOTYPE/ENZYME ACTIVITY TPMT PHENOTYPE/ENZYME ACTIVITY Lab Routine Encounter for fpc 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 Expected: 09/19/2022 (Approximate), Expires: 11/19/2022 [facility] Work Phone: Comment on above: Expected: 09/19/2022 (Approximate), Expi res: 11/19/2022 Start: 08-28-2022 End: 10-28-2022 25-hydroxyvitamin D3 [Mass/volume] in Serum or Plasma VITAMIN D 25 HYDROXY Lab Routine Megaloblastic anemia due to vitamin B12 deficiency Elevated sed rate High total serum IgM Chronic fatigue and malaise Expected: 08/28/2022 (Approximate), Expires: 10/28/2022 [facility] Work Phone: Comment on above: Expected: 08/28/2022 (Approximate), Expi res: 10/28/2022 Start: 08-28-2022 End: 07-26-2023 [id number] [Mass/volume] in Serum or Plasma B2 MICROGLOBULIN B Lab Routine Megaloblastic anemia due to vitamin B12 deficiency Elevated sed rate High total serum IgM Chronic fatigue and malaise Expected: 08/28/2022 (Approximate), Expires: 07/26/2023 [facility] Work Phone: Comment on above: Expected: 08/28/2022 (Approximate), Expi res: 07/26/2023 Start: 08-28-2022 End: 10-28-2022 C reactive protein [Mass/volume] in Serum or Plasma C-REACTIVE PROTEIN (CRP) Lab Routine Megaloblastic anemia due to vitamin B12 deficiency Elevated sed rate High total serum IgM Chronic fatigue and malaise Expected: 08/28/2022 (Approximate), Expires: 10/28/2022 [facility] Work Phone: Comment on above: Expected: 08/28/2022 (Approximate), Expi res: 10/28/2022 Start: 08-28-2022 End: 07-26-2023 Calcium.ionized [Moles/volume] in Blood CALCIUM IONIZED BLOOD Lab Routine Megaloblastic anemia due to vitamin B12 deficiency Elevated sed rate High total serum IgM Chronic fatigue and malaise Expected: 08/28/2022 (Approximate), Expires: 07/26/2023 [facility] Work Phone: Comment on above: Expected: 08/28/2022 (Approximate), Expi res: 07/26/2023 Start: 08-28-2022 End: 07-26-2023 CBC W Auto Differential panel - Blood CBC + DIFF Lab Routine Megaloblastic anemia due to vitamin B12 deficiency Elevated sed rate High total serum IgM Chronic fatigue and malaise Expected: 08/28/2022 (Approximate), Expires: 07/26/2023 [facility] Work Phone: Comment on above: Expected: 08/28/2022 (Approximate), Expi res: 07/26/2023 Start: 08-28-2022 End: 10-28-2022 Cobalamin (Vitamin B12) [Mass/volume] in Serum or Plasma VITAMIN B12 BLOOD Lab Routine Megaloblastic anemia due to vitamin B12 deficiency Elevated sed rate High total serum IgM Chronic fatigue and malaise Expected: 08/28/2022 (Approximate), Expires: 10/28/2022 [facility] Work Phone: Comment on above: Expected: 08/28/2022 (Approximate), Expi res: 10/28/2022 Start: 08-28-2022 End: 07-26-2023 Comprehensive metabolic 2000 panel - Serum or Plasma COMP METABOLIC PANEL Lab Routine Megaloblastic anemia due to vitamin B12 deficiency Elevated sed rate High total serum IgM Chronic fatigue and malaise Expected: 08/28/2022 (Approximate), Expires: 07/26/2023 [facility] Work Phone: Comment on above: Expected: 08/28/2022 (Approximate), Expi res: 07/26/2023 Start: 08-28-2022 End: 10-28-2022 Erythrocyte sedimentation rate SED RATE WESTERGREN Lab Routine Megaloblastic anemia due to vitamin B12 deficiency Elevated sed rate High total serum IgM Chronic fatigue and malaise Expected: 08/28/2022 (Approximate), Expires: 10/28/2022 [facility] Work Phone: Comment on above: Expected: 08/28/2022 (Approximate), Expi res: 10/28/2022 Start: 08-28-2022 End: 10-28-2022 KAPPA/FARMER,FREE,SER KAPPA/FARMER,FREE,SER Lab Routine Megaloblastic anemia due to vitamin B12 deficiency Elevated sed rate High total serum IgM Chronic fatigue and malaise Expected: 08/28/2022 (Approximate), Expires: 10/28/2022 [facility] Work Phone: Comment on above: Expected: 08/28/2022 (Approximate), Expi res: 10/28/2022 Start: 08-28-2022 End: 07-26-2023 Lactate dehydrogenase [Enzymatic activity/volume] in Serum or Plasma LD LACTATE DEHYDRO Lab Routine Megaloblastic anemia due to vitamin B12 deficiency Elevated sed rate High total serum IgM Chronic fatigue and malaise Expected: 08/28/2022 (Approximate), Expires: 07/26/2023 [facility] Work Phone: Comment on above: Expected: 08/28/2022 (Approximate), Expi res: 07/26/2023 Start: 08-28-2022 End: 07-26-2023 MONOCLONAL PROTEIN, SERUM (BLOOD) MONOCLONAL PROTEIN, SERUM (BLOOD) Lab Routine Megaloblastic anemia due to vitamin B12 deficiency Elevated sed rate High total serum IgM Chronic fatigue and malaise Expected: 08/28/2022 (Approximate), Expires: 07/26/2023 [facility] Work Phone: Comment on above: Expected: 08/28/2022 (Approximate), Expi res: 07/26/2023 Start: 08-28-2022 End: 07-26-2023 Phosphate [Mass/volume] in Serum or Plasma PHOSPHORUS INORGANIC Lab Routine Megaloblastic anemia due to vitamin B12 deficiency Elevated sed rate High total serum IgM Chronic fatigue and malaise Expected: 08/28/2022 (Approximate), Expires: 07/26/2023 [facility] Work Phone: Comment on above: Expected: 08/28/2022 (Approximate), Expi res: 07/26/2023 Start: 08-28-2022 End: 07-26-2023 PROTEIN ELECTROPHORESIS SERUM W/INTERP PROTEIN ELECTROPHORESIS SERUM W/INTERP Lab Routine Megaloblastic anemia due to vitamin B12 deficiency Elevated sed rate High total serum IgM Chronic fatigue and malaise Expected: 08/28/2022 (Approximate), Expires: 07/26/2023 [facility] Work Phone: Comment on above: Expected: 08/28/2022 (Approximate), Expi res: 07/26/2023 Start: 08-28-2022 End: 07-26-2023 Urate [Mass/volume] in Serum or Plasma URIC ACID BLOOD Lab Routine Megaloblastic anemia due to vitamin B12 deficiency Elevated sed rate High total serum IgM Chronic fatigue and malaise Expected: 08/28/2022 (Approximate), Expires: 07/26/2023 [facility] Work Phone: Comment on above: Expected: 08/28/2022 (Approximate), Expi res: 07/26/2023 Start: 07-15-2022 End: 05-20-2023 [id number] [Mass/volume] in Serum or Plasma B2 MICROGLOBULIN B Lab Routine High total serum IgM Expected: 07/15/2022 (Approximate), Expires: 05/20/2023 [facility] Work Phone: Comment on above: Expected: 07/15/2022 (Approximate), Expi res: 05/20/2023 Start: 07-15-2022 End: 05-20-2023 Calcium.ionized [Moles/volume] in Blood CALCIUM IONIZED BLOOD Lab Routine High total serum IgM Expected: 07/15/2022 (Approximate), Expires: 05/20/2023 [facility] Work Phone: Comment on above: Expected: 07/15/2022 (Approximate), Expi res: 05/20/2023 Start: 07-15-2022 End: 05-20-2023 CBC W Auto Differential panel - Blood CBC + DIFF Lab Routine High total serum IgM Expected: 07/15/2022 (Approximate), Expires: 05/20/2023 [facility] Work Phone: Comment on above: Expected: 07/15/2022 (Approximate), Expi res: 05/20/2023 Start: 07-15-2022 End: 05-20-2023 Comprehensive metabolic 2000 panel - Serum or Plasma COMP METABOLIC PANEL Lab Routine High total serum IgM Expected: 07/15/2022 (Approximate), Expires: 05/20/2023 [facility] Work Phone: Comment on above: Expected: 07/15/2022 (Approximate), Expi res: 05/20/2023 Start: 07-15-2022 End: 09-14-2022 KAPPA/FARMER,FREE,SER KAPPA/FARMER,FREE,SER Lab Routine High total serum IgM Expected: 07/15/2022 (Approximate), Expires: 09/14/2022 [facility] Work Phone: Comment on above: Expected: 07/15/2022 (Approximate), Expi res: 09/14/2022 Start: 07-15-2022 End: 05-20-2023 Lactate dehydrogenase [Enzymatic activity/volume] in Serum or Plasma LD LACTATE DEHYDRO Lab Routine High total serum IgM Expected: 07/15/2022 (Approximate), Expires: 05/20/2023 [facility] Work Phone: Comment on above: Expected: 07/15/2022 (Approximate), Expi res: 05/20/2023 Start: 07-15-2022 End: 05-20-2023 MONOCLONAL PROTEIN, SERUM (BLOOD) MONOCLONAL PROTEIN, SERUM (BLOOD) Lab Routine High total serum IgM Expected: 07/15/2022 (Approximate), Expires: 05/20/2023 [facility] Work Phone: Comment on above: Expected: 07/15/2022 (Approximate), Expi res: 05/20/2023 Start: 07-15-2022 End: 05-20-2023 Phosphate [Mass/volume] in Serum or Plasma PHOSPHORUS INORGANIC Lab Routine High total serum IgM Expected: 07/15/2022 (Approximate), Expires: 05/20/2023 [facility] Work Phone: Comment on above: Expected: 07/15/2022 (Approximate), Expi res: 05/20/2023 Start: 07-15-2022 End: 05-20-2023 PROTEIN ELECTROPHORESIS SERUM W/INTERP PROTEIN ELECTROPHORESIS SERUM W/INTERP Lab Routine High total serum IgM Expected: 07/15/2022 (Approximate), Expires: 05/20/2023 [facility] Work Phone: Comment on above: Expected: 07/15/2022 (Approximate), Expi res: 05/20/2023 Start: 07-15-2022 End: 05-20-2023 Urate [Mass/volume] in Serum or Plasma URIC ACID BLOOD Lab Routine High total serum IgM Expected: 07/15/2022 (Approximate), Expires: 05/20/2023 [facility] Work Phone: Comment on above: Expected: 07/15/2022 (Approximate), Expi res: 05/20/2023 Start: 06-05-2022 End: 03-05-2023 25-hydroxyvitamin D3 [Mass/volume] in Serum or Plasma VITAMIN D 25 HYDROXY Lab Routine Vitamin D deficiency Expected: 06/05/2022 (Approximate), Expires: 03/05/2023 [facility] Work Phone: Comment on above: Expected: 06/05/2022 (Approximate), Expi res: 03/05/2023 Start: 06-05-2022 End: 03-05-2023 C reactive protein [Mass/volume] in Serum or Plasma C-REACTIVE PROTEIN (CRP) Lab Routine Elevated sed rate Elevated C-reactive protein (CRP) Expected: 06/05/2022 (Approximate), Expires: 03/05/2023 [facility] Work Phone: Comment on above: Expected: 06/05/2022 (Approximate), Expi res: 03/05/2023 Start: 06-05-2022 End: 03-05-2023 Cobalamin (Vitamin B12) [Mass/volume] in Serum or Plasma VITAMIN B12 BLOOD Lab Routine Vitamin B12 deficiency Expected: 06/05/2022 (Approximate), Expires: 03/05/2023 [facility] Work Phone: Comment on above: Expected: 06/05/2022 (Approximate), Expi res: 03/05/2023 Start: 06-05-2022 End: 03-05-2023 Erythrocyte sedimentation rate SED RATE WESTERGREN Lab Routine Elevated sed rate Elevated C-reactive protein (CRP) Expected: 06/05/2022 (Approximate), Expires: 03/05/2023 [facility] Work Phone: Comment on above: Expected: 06/05/2022 (Approximate), Expi res: 03/05/2023 Start: 05-06-2022 End: 03-18-2023 [id number] [Mass/volume] in Serum or Plasma B2 MICROGLOBULIN B Lab Routine Megaloblastic anemia due to vitamin B12 deficiency High total serum IgM Expected: 05/06/2022 (Approximate), Expires: 03/18/2023 [facility] Work Phone: Comment on above: Expected: 05/06/2022 (Approximate), Expi res: 03/18/2023 Start: 05-06-2022 End: 03-18-2023 Calcium.ionized [Moles/volume] in Blood CALCIUM IONIZED BLOOD Lab Routine Megaloblastic anemia due to vitamin B12 deficiency High total serum IgM Expected: 05/06/2022 (Approximate), Expires: 03/18/2023 [facility] Work Phone: Comment on above: Expected: 05/06/2022 (Approximate), Expi res: 03/18/2023 Start: 05-06-2022 End: 10-26-2023 CBC W Auto Differential panel - Blood CBC + DIFF Lab Routine Megaloblastic anemia due to vitamin B12 deficiency High total serum IgM Expected: 05/06/2022 (Approximate), Expires: 03/18/2023 [facility] Work Phone: Comment on above: Expected: 05/06/2022 (Approximate), Expi res: 03/18/2023 Start: 05-06-2022 End: 03-18-2023 Comprehensive metabolic 2000 panel - Serum or Plasma COMP METABOLIC PANEL Lab Routine Megaloblastic anemia due to vitamin B12 deficiency High total serum IgM Expected: 05/06/2022 (Approximate), Expires: 03/18/2023 [facility] Work Phone: Comment on above: Expected: 05/06/2022 (Approximate), Expi res: 03/18/2023 Start: 05-06-2022 End: 03-18-2023 Ferritin [Mass/volume] in Serum or Plasma FERRITIN BLD Lab Routine Megaloblastic anemia due to vitamin B12 deficiency High total serum IgM Expected: 05/06/2022 (Approximate), Expires: 03/18/2023 [facility] Work Phone: Comment on above: Expected: 05/06/2022 (Approximate), Expi res: 03/18/2023 Start: 05-06-2022 End: 03-18-2023 Iron and Iron binding capacity panel - Serum or Plasma IRON + TIBC Lab Routine Megaloblastic anemia due to vitamin B12 deficiency High total serum IgM Expected: 05/06/2022 (Approximate), Expires: 03/18/2023 [facility] Work Phone: Comment on above: Expected: 05/06/2022 (Approximate), Expi res: 03/18/2023 Start: 05-06-2022 End: 03-18-2023 Lactate dehydrogenase [Enzymatic activity/volume] in Serum or Plasma LD LACTATE DEHYDRO Lab Routine Megaloblastic anemia due to vitamin B12 deficiency High total serum IgM Expected: 05/06/2022 (Approximate), Expires: 03/18/2023 [facility] Work Phone: Comment on above: Expected: 05/06/2022 (Approximate), Expi res: 03/18/2023 Start: 05-06-2022 End: 03-18-2023 MONOCLONAL PROTEIN, SERUM (BLOOD) MONOCLONAL PROTEIN, SERUM (BLOOD) Lab Routine Megaloblastic anemia due to vitamin B12 deficiency High total serum IgM Expected: 05/06/2022 (Approximate), Expires: 03/18/2023 [facility] Work Phone: Comment on above: Expected: 05/06/2022 (Approximate), Expi res: 03/18/2023 Start: 05-06-2022 End: 03-18-2023 Phosphate [Mass/volume] in Serum or Plasma PHOSPHORUS INORGANIC Lab Routine Megaloblastic anemia due to vitamin B12 deficiency High total serum IgM Expected: 05/06/2022 (Approximate), Expires: 03/18/2023 [facility] Work Phone: Comment on above: Expected: 05/06/2022 (Approximate), Expi res: 03/18/2023 Start: 05-06-2022 End: 03-18-2023 PROTEIN ELECTROPHORESIS SERUM W/INTERP PROTEIN ELECTROPHORESIS SERUM W/INTERP Lab Routine Megaloblastic anemia due to vitamin B12 deficiency High total serum IgM Expected: 05/06/2022 (Approximate), Expires: 03/18/2023 [facility] Work Phone: Comment on above: Expected: 05/06/2022 (Approximate), Expi res: 03/18/2023 Start: 05-06-2022 End: 03-18-2023 Urate [Mass/volume] in Serum or Plasma URIC ACID BLOOD Lab Routine Megaloblastic anemia due to vitamin B12 deficiency High total serum IgM Expected: 05/06/2022 (Approximate), Expires: 03/18/2023 [facility] Work Phone: Comment on above: Expected: 05/06/2022 (Approximate), Expi res: 03/18/2023 Start: 04-05-2022 COVID-19 VACCINE (5 - Pfizer risk series) COVID-19 VACCINE (5 - Pfizer risk series) [facility] Start: 03-09-2022 End: 05-09-2022 Hemoglobin A1c in Blood HGB A1C Lab Routine Elevated glucose Expected: 03/09/2022, Expires: 05/09/2022 [facility] Work Phone: Comment on above: Expected: 03/09/2022, Expires: 2 Start: 02-24-2022 End: 04-26-2022 BARTONELLA AB PANEL BARTONELLA AB PANEL Lab Routine Swelling of lymph nodes Expected: 02/24/2022, Expires: 04/26/2022 [facility] Work Phone: Comment on above: Expected: 02/24/2022, Expires: 2 Start: 02-24-2022 End: 04-26-2022 BRUCELLA AB TOTAL BRUCELLA AB TOTAL Lab Routine Swelling of lymph nodes Expected: 02/24/2022, Expires: 04/26/2022 [facility] Work Phone: Comment on above: Expected: 02/24/2022, Expires: 2 Start: 02-24-2022 End: 04-26-2022 Cryptococcus sp Ag [Presence] in Unspecified specimen by Latex agglutination CRYPTOCOCCUS AG DET Microbiology Routine Swelling of lymph nodes Expected: 02/24/2022, Expires: 04/26/2022 [facility] Work Phone: Comment on above: Expected: 02/24/2022, Expires: 2 Start: 02-24-2022 End: 04-26-2022 HISTOPLASMA AG URINE HISTOPLASMA AG URINE Lab Routine Swelling of lymph nodes Expected: 02/24/2022, Expires: 04/26/2022 [facility] Work Phone: Comment on above: Expected: 02/24/2022, Expires: 2 Start: 02-24-2022 End: 04-26-2022 HIV 1 RNA [#/volume] (viral load) in Serum or Plasma by YESSI with probe detection HIV RNA VIRAL LOAD Lab Routine Swelling of lymph nodes Expected: 02/24/2022, Expires: 04/26/2022 [facility] Work Phone: Comment on above: Expected: 02/24/2022, Expires: 2 Start: 02-24-2022 End: 04-26-2022 SYPHILIS TOTAL W/REFLEX SYPHILIS TOTAL W/REFLEX Lab Routine Swelling of lymph nodes Expected: 02/24/2022, Expires: 04/26/2022 [facility] Work Phone: Comment on above: Expected: 02/24/2022, Expires: 2 Start: 01-22-2022 Influenza vaccination [facility] Start: 08-24-2021 COVID-19 VACCINE (4 - Booster for Pfizer series) COVID-19 VACCINE (4 - Booster for Pfizer series) [facility] Start: 01-22-2021 Influenza vaccination Flu vaccine (Season Ended) [facility] Work Phone: Start: 2020 Lipid panel Lipid screen [employer] Phone: Start: 2020 Mammography [facility] Start: 2020 Screening for malignant neoplasm of breast [facility] Start: 2010 HPV TESTING HPV TESTING [facility] Start: 2010 Screening for malignant neoplasm of cervix [facility] Start: 10-05-2007 HPV Vaccine (1 - Risk 3-dose SCDM series) HPV Vaccine (1 - Risk 3-dose SCDM series) [facility] Start: 2002 DTaP/Tdap/Td Vaccines (1 - Tdap) DTaP/Tdap/Td Vaccines (1 - Tdap) [facility] Start: 2001 PAP TESTING PAP TESTING [facility] Start: 2001 Screening for malignant neoplasm of cervix [facility] Start: 10-05-1999 DTaP,Tdap and Td Vaccines (1 - Tdap) DTaP,Tdap and Td Vaccines (1 - Tdap) [facility] [employer] [facility] Start: 10-05-1999 DTaP/Tdap/Td vaccine (1 - Tdap) DTaP/Tdap/Td vaccine (1 - Tdap) [employer] Phone: Start: 10-05-1999 Hepatitis B Vaccine (1 of 3 - 19+ 3-dose series) Hepatitis B Vaccine (1 of 3 - 19+ 3-dose series) [facility] Start: 10-05-1999 Hepatitis B Vaccines (1 of 3 - 19+ 3-dose series) Hepatitis B Vaccines (1 of 3 - 19+ 3-dose series) [facility] Start: 10-05-1999 Pneumococcal vaccination Pneumococcal Vaccine (1 of 2 - PCV) [facility] Start: 10-05-1999 Pneumococcal Vaccine: Pediatrics and At-Risk Adult Patients (1 of 2 - PCV) Pneumococcal Vaccine: Pediatrics and At-Risk Adult Patients (1 of 2 - PCV) [facility] Start: 10-05-1999 SHINGRIX VACCINE (1 of 2) SHINGRIX VACCINE (1 of 2) [facility] Start: 10-05-1999 Urine microalbumin profile [facility] Start: 10-05-1999 Zoster Vaccines (1 of 2) Zoster Vaccines (1 of 2) [facility] Start: 1998 Adult BMI Follow Up Plan Adult BMI Follow Up Plan [facility] Start: 1998 Adult BMI Screening Adult BMI Screening [facility] Start: 1998 Anxiety Screening Anxiety Screening [facility] Start: 1998 Hepatitis C screening Hepatitis C Screening [facility] Start: 1998 HIV SCREENING HIV SCREENING [facility] Start: 1998 HIV screening HIV Screening [facility] Start: 10-05-1995 HIV screening HIV screen [employer] Phone: Start: 1993 Varicella vaccination Varicella Vaccines (1 of 2 - 13+ 2-dose series) [facility] Start: 1992 COVID-19 Vaccine (1) COVID-19 Vaccine (1) [employer] Phone: Start: 1992 Depression Screening Depression Screening [facility] Start: 1992 Tobacco Screening Tobacco Screening [facility] Start: 10-05-1991 Screening for malignant neoplasm of cervix Cervical Cancer Screening [facility] Start: 1986 PNEUMOCOCCAL (1 - PCV) PNEUMOCOCCAL (1 - PCV) [facility] Start: 1986 Pneumococcal vaccination [facility] Start: 1986 Pneumococcal Vaccine: Pediatrics (0 to 5 Years) and At-Risk Patients (6 to 64 Years) (1 - PCV) Pneumococcal Vaccine: Pediatrics (0 to 5 Years) and At-Risk Patients (6 to 64 Years) (1 - PCV) [facility] Start: 1981 MMR Vaccines (1 of 1 - Standard series) MMR Vaccines (1 of 1 - Standard series) [facility] Start: 1981 Varicella vaccination Varicella Vaccines (1 of 2 - 2-dose childhood series) [facility] Start: 1981 Varicella vaccine (1 of 2 - 2-dose childhood series) Varicella vaccine (1 of 2 - 2-dose childhood series) [employer] Phone: Start: 1980 HEPATITIS B (1 of 3 - 3-dose series) HEPATITIS B (1 of 3 - 3-dose series) [facility] Start: 1980 Hepatitis B Vaccine (1 of 3 - 3-dose series) Hepatitis B Vaccine (1 of 3 - 3-dose series) [facility] Start: 1980 Hepatitis B Vaccines (1 of 3 - 3-dose series) Hepatitis B Vaccines (1 of 3 - 3-dose series) [facility] Start: 1980 Hepatitis C screening Hepatitis C screen [employer] Phone: Start: 1980 HIV screening HIV Screening [facility] Start: 1980 HPV Vaccine: Recommended Based On Risk HPV Vaccine: Recommended Based On Risk [facility] Start: 1980 Lipid panel Lipid Panel [facility] Start: 1980 Screening for osteoporosis Bone Density Scan [facility] Start: 1980 Tobacco Counseling Tobacco Counseling [facility] Start: 1980 Yearly Adult Physical Yearly Adult Physical [facility] 25-hydroxyvitamin D3 [Mass/volume] in Serum or Plasma VITAMIN D 25 HYDROXY Lab Routine Vitamin D deficiency 01/11/2025 1:48 PM EDT [facility] BLOOD TB SCREEN BLOOD TB SCREEN Lab Routine Screening-pulmonary TB 01/11/2025 1:48 PM EDT [facility] C reactive protein [Mass/volume] in Serum or Plasma C-REACTIVE PROTEIN Lab Routine Elevated sed rate Elevated C-reactive protein (CRP) 01/11/2025 1:48 PM EDT [facility] Cardiovascular funct ion eval w/tilt table w/mntr TILT TABLE EVALUATION Cardiology Routine POTS (postural orthostatic tachycardia syndrome) Ordered: 03/09/2022 [facility] Work Phone: Comment on above: Ordered: 03/09/2022 CBC W Auto Different ial panel - Blood CBC and differential Lab Routine Menorrhagia with regular cycle Ordered: 03/23/2024 [employer] Work Phone: Comment on above: Ordered: 03/23/2024 Chronic hepatitis differentiation between hepatitis B and C virus panel - Serum or Plasma HEP REMOTE PANEL BL Lab Routine Elevated LFTs 01/11/2025 1:48 PM EDT [facility] Cobalamin (Vitamin B 12) [Mass/volume] in Serum or Plasma VITAMIN B12 Lab Routine Vitamin B12 deficiency 01/11/2025 1:48 PM EDT [facility] CT Abdomen W contrast IV [facility] End: 03-05-2024 DXA-AXIAL SKELETON DXA-AXIAL SKELETON Radiology Routine Steroid-induced osteoporosis 1 Occurrences starting 02/04/2023 until 03/05/2024 [facility] Work Phone: Comment on above: 1 Occurrences starting 02/04/2023 until 03/05/2024 End: 03-05-2024 DXA-FOREARM SKELETON DXA-FOREARM SKELETON Radiology Routine Steroid-induced osteoporosis 1 Occurrences starting 02/04/2023 until 03/05/2024 [facility] Work Phone: Comment on above: 1 Occurrences starting 02/04/2023 until 03/05/2024 ECG 12 Lead ECG 12 Lead ECG Routine Irregular heart rate 06/09/2023 8:28 AM EST [facility] Work Phone: Erythrocyte sediment ation rate SEDIMENTATION RATE, WESTERGREN Lab Routine Elevated sed rate Elevated C-reactive protein (CRP) 01/11/2025 1:48 PM EDT [facility] Work Phone: hCG, quantitative, hCG, quantitative, Lab Routine Menorrhagia with regular cycle Ordered: 03/23/2024 [employer] Comment on above: Ordered: 03/23/2024 Hemoglobin A1c/Hemoglobin.total in Blood Hemoglobin A1c Lab Routine Menorrhagia with regular cycle Ordered: 03/23/2024 [facility] Comment on above: Ordered: 03/23/2024 Hepatitis B virus co re Ab [Presence] in Serum HEPATITIS B CORE ANTIBODY TOTAL Lab Routine Elevated LFTs 01/11/2025 1:48 PM EDT [facility] Hepatitis B virus galarza rface Ab [Presence] in Serum HEPATITIS B SURFACE ANTIBODY Lab Routine Elevated LFTs 01/11/2025 1:48 PM EDT [facility] Hepatitis B virus galarza rface Ag [Presence] in Serum HEPATITIS B SURFACE ANTIGEN Lab Routine Elevated LFTs 01/11/2025 1:48 PM EDT [facility] Hepatitis C virus Ab [Presence] in Serum HEPATITIS C ANTIBODY IA WITH CONFIRMATION Lab Routine Elevated LFTs 01/11/2025 1:48 PM EDT [facility] End: 03-09-2023 HOME SLEEP APNEA TEST (HSAT) HOME SLEEP APNEA TEST (HSAT) Procedures Routine Somnolence, daytime Snoring 1 Occurrences starting 03/09/2022 until 03/09/2023 [facility] Work Phone: Comment on above: 1 Occurrences starting 03/09/2022 until 03/09/2023 HYDROGEN BREATH TEST B/O HYDROGE N BREATH TEST B/O Procedures Routine Diarrhea, unspecified type Abdominal pressure Ordered: 06/14/2024 [facility] Work Phone: Comment on above: Ordered: 06/14/2024 Oxygen therapy [[facility] [place] Set] Initiate Oxygen Therapy Protocol Respiratory Care Routine Daily until discontinued starting 10/07/2020 [facility] Work Phone: Comment on above: Daily until discontinued starting 2020 Patient Education Know your Meds Jorge Luis Non Diagnostic Block [facility] Work Phone: Patient referral [facility] Work Phone: End: 03-04-2023 Polysomnogram POLYSOMNOGRAM (PSG) Procedures Routine Somnolence, daytime Snoring 1 Occurrences starting 03/04/2022 until 03/04/2023 [facility] Work Phone: Comment on above: 1 Occurrences starting 03/04/2022 until 03/04/2023 Prothrombin time (PT ) in Blood by Coagulation assay Protime-INR Lab Routine Menorrhagia with regular cycle Ordered: 03/23/2024 [facility] Comment on above: Ordered: 03/23/2024 THIN PREP TIS PAP AN D HR HPV DNA THIN PREP TIS PAP AND HR HPV DNA Pathology and Cytology Routine Well woman exam with routine gynecological exam Ordered: 06/06/2024 [facility] Comment on above: Ordered: 06/06/2024 Thyrotropin [Units/v olume] in Serum or Plasma TSH Lab Routine Menorrhagia with regular cycle Ordered: 03/23/2024 [facility] Comment on above: Ordered: 03/23/2024 Thyroxine (T4) free [Mass/volume] in Serum or Plasma T4, free Lab Routine Menorrhagia with regular cycle Ordered: 03/23/2024 [facility] Comment on above: Ordered: 03/23/2024 XR Thoracic spine 3 Views [facility] Immunizations Immunization Date Immunization Notes Care Provider Fa [facility] 02-23-2023 COVID-19 vaccine, ag e 12+ yr, season (PFIZER-BIONTAxis Three) Lynne Ni MD Work Phone: [facility] 02-08-2022 COVID-19 mRNA Bivale nt Booster (Pfizer) Gay Enciso MANAGER RELIABILITY-C Work Phone: [facility] 05-26-2021 COVID-19 mRNA, Comirnaty (Pfizer) Gay Enciso MANAGER RELIABILITY-C Work Phone: [facility] 10-19-2020 COVID-19 mRNA, Comirnaty (Pfizer) Gay Enciso MANAGER RELIABILITY-C Work Phone: [facility] 09-28-2020 COVID-19 mRNA, Comirnaty (Pfizer) Gay Enciso MANAGER RELIABILITY-C Work Phone: [facility] Payers Date Payer Category Payer Self-pay [id number] 2024 Medicaid HMO [employer] [id number] 2017 Medicaid (Managed Care) [employer] [id number] 2017 Private Health Insurance [facility] [id number] 2017 Unknown [employer] [id number] 2017-Present [address] [place] [address] [id number]. [id number] 2009 Medicaid [employer] [id number] 2009-Present [phone] [address] [place] [address] Medicaid [id number] 2009 Medicaid [id number] [id number]. [id number] 1980 Unknown [id number] 2.16.840.1.978356.3.579.2. 185 1980 Unknown [id number] 2.16.840.1.253609.3.579.2. 175 1980 Unknown [id number] 2.16.840.1.933020.3.579.2. 593 1980 Unknown [id number] 2.16.840.1.532998.3.579.2. 593 1980 Unknown [id number] 2.16.840.1.478101.3.579.2. 593 1980 Unknown [id number] 2.16.840.1.225220.3.579.2. 593 1980 Unknown [id number] 2.16.840.1.929261.3.579.2. 59 1980 Unknown [id number] 2.16.840.1.401880.3.579.2. 59 1980 Unknown [id number] 2.16.840.1.336315.3.579.2. 1980 Unknown [id number] 2.16.840.1.925145.3.579.2. 1980 Unknown [id number] 2.16.840.1.096341.3.579.2. 1980 Unknown [id number] 2.16.840.1.304064.3.579.2. 1980 Unknown [id number] 2.16.840.1.871348.3.579.2. 1243 1980 Unknown [id number] 2.840.1.219534.3.579.2. 1243 1980 Unknown [id number] 2.16.840.1.392341.3.579.2. 1258 1980 Unknown [id number] 2.16.840.1.243847.3.579.2. 1258 1980 Unknown [id number] 2.16.840.1.869611.3.579.2. 1258 1980 Unknown [id number] 2.16.840.1.915865.3.579.2. 1258 1980 Unknown [id number] 2.16.840.1.802725.3.579.2. 1258 1980 Unknown [id number] 2.16.840.1.310832.3.579.2. 1258 1980 Unknown [id number] 2.16.840.1.811609.3.579.2. 1258 1980 Unknown [id number] 2.16.840.1.410412.3.579.2. 1258 1980 Unknown [id number] 2.16.840.1.777074.3.579.2. 1259 1980 Unknown [id number] 2.16.840.1.259311.3.579.2. 1259 1980 Unknown [id number] 2.16.840.1.327076.3.579.2. 1259 1959 Unknown [id number] 1959 Unknown [id number] Unknown [id number] 2.16.840.1.755473.3.579.2. 531 Unknown [id number] 2.16.840.1.981151.3.579.2. 531 Unknown [id number] 2.16.840.1.593803.3.579.2. 531 Unknown [id number] 2.16.840.1.986099.3.579.2. 531 Social History Date Type Detail Facility Start: 10-07-2020 End: 01-31-2025 Tobacco smoking status NHIS Current every day smoker [facility] Start: 10-07-2020 End: 11-08-2023 Tobacco use and exposure Never used [facility] Start: 10-07-2020 End: 02-28-2025 Alcohol intake Lifetime non-drinker (finding) [facility] Phone: Start: 10-07-2020 History SDOH Alcohol Frequency 1 [facility] Phone: Start: 1980 Sex Assigned At Not on file M [employer] Phone: Start: 02-22-2022 End: 07-26-2024 Exposure to SARS-CoV-2 (event) Not sure [facility] Start: 05-24-1995 History of tobacco use Cigarette Smo ker [facility] Start: 05-31-2014 End: 02-28-2025 Cigarettes smoked current (pack per day) - Reported 1 [facility] Start: 10-24-2021 End: 11-29-2024 Alcohol intake Current non-drinker of alcohol (finding) [facility] Start: 10-14-2021 End: 10-24-2021 Exposure to SARS-CoV-2 (event) Unable to assess [facility] Start: 10-22-2022 End: 02-28-2025 Sex Assigned At [facility] Start: 05-31-2014 Adult Depression Screening Assessment 1 [facility] Start: 10-19-2022 Tobacco Comment Current smoker , everyday, 11-20 cigarettes/day [facility] Start: 05-31-2023 Alcohol Comment Caffeine intak e : > 4 cups per day [facility] Start: 08-19-2016 End: 12-16-2023 Tobacco smoking status NHIS Smoker (finding) [facility] Start: 1980 Sex Assigned At Female F [facility] Start: 07-02-2016 End: 08-22-2024 Sex Female (finding) [facility] [employer] [facility] Start: 02-21-2024 Gender identity Identifies as female gender (finding) [facility] Goals Date Patient Goal Desired Activity /State Functional Status Date Assessment Result Facility 12-25-2014 Are you deaf, or do you have serious difficulty hearing No 12/25/2014 11:14 AM Chichi Womack Ma No [facility] 12-25-2014 Are you blind, or do you have serious difficulty seeing, even when wearing glasses No 12/25/2014 11:14 AM Chichi Womack Ma No [facility] 12-25-2014 Do you have serious difficulty walking or climbing stairs Yes 12/25/2014 11:14 AM Chichi Womack Ma Yes [facility] 12-25-2014 Do you have difficul ty dressing or bathing Yes 12/25/2014 11:14 AM Chichi Womack Ma Yes [facility] 12-25-2014 Because of a physica l, mental, or emotional condition, do you have difficulty doing errands alone such as visiting a physician's office or shopping No 12/25/2014 11:14 AM Chichi Womack Ma [facility] Mental Status Date Assessment Result Facility 12-25-2014 Because of a physica l, mental, or emotional condition, do you have serious difficulty concentrating, remembering, or making decisions No 12/25/2014 11:14 AM Chichi Womack Ma [facility] Clinical Notes 05-31-2014 to 02-28-2025 Terence Pacheco MD - 02/28/2025 9:30 AM Homero English MD - 02/14/2025 3:20 PM Elena Salguero RN - 01/24/2025 3:40 PM EDTTelephone Encounter - Merry Chairez RN - 01/18/2025 5:09 PM EDT Note Date [...] and also on prednisone. She follows with [facility] rheumatology and also with [facility] hematology/oncology. She states she does have a [...] Chronic laryngopharyngitis COVID-19 vaccine administered x 2 ([employer]) Difficulty walking Fatigue Fibromyalgia, primary GERD (gastroesophageal [...] dressing changes at documented in this encounter [facility] 02-21-2025 Note [facility] 02-21-2025 Note [facility] 02-14-2025 History of Present illness Narrative Follow [...] treatment with ILK today. ILK today, see [facility] for details. Consent: The risks and [...] Visit: as scheduled documented in this encounter [facility] 01-24-2025 Note [facility] 01-24-2025 History of Present illness Narrative Pt did not receive B12 injection today. Pt called & agreeable to receive it when she returns in 2 weeks for her Benlysta infusion. Pharmacy aware and moving date. Elena Alfonso RN documented in this encounter [facility] 01-18-2025 Telephone encounter Note MC message read by patient . [facility] 01-18-2025 Miscellaneous Notes MC message read by patient . Please Call patient if MyChart note not read to review results/released to My Chart if tests completed at [facility]: High glucose, one borderline inflammatory test and [...] start prior authorization documented in this encounter [facility] 01-18-2025 Telephone encounter Note Please [...] sq benlysta to IV, start prior authorization [facility] 12-14-2024 Note HNO ID: [id number] Author: JHONATHAN VALE RN Service: ? Author Type: Registered Nurse Type: Progress Notes Filed: 12/14/2024 16:36 Note Text: Ran over 2 hours per patient request. [facility] 12-14-2024 History of Present illness Narrative Ran over 2 hours per patient request. documented in this encounter [facility] 12-14-2024 Note [facility] 12-14-2024 History of Present illness Narrative CMN RECEIVED BY [employer] [facility] VIA FAX, COMPLETED, AND PLACED IN PROVIDER MAILBOX FOR SIGNATURE Ama Esparza Cage Shift Manager [employer] SENDING CMN: Josh SIGNED AND DATED CMN, FAXED TO DME & CONFIRMATION PAGE RECEIVED: 12.14.2024 documented in this encounter [facility] 11-30-2024 Evaluation note Diagnosis Onset [...] 2024 9:23am Sacroiliitis acute February 142024 9:23am [facility] Work Phone: [phone]) 218-141507-10-2025 Telephone encounter Note* Telephone Encounter - Enma Hamm RN - 11/30/2024 8:36 AM EDT Pt updated on results. Will continue with IVIG, as previously scheduled. Denied further needs or concerns at this time. Enma Hamm RN [facility]07-10-2025 Miscellaneous Notes* Telephone Encounter - Enma Hamm RN - 11/30/2024 8:36 AM EDT Pt updated on results. Will continue with IVIG, as previously scheduled. Denied further needs or concerns at this time. Enma Hamm RN documented in this encounterFirelands [facility] Center07-09-2025 [facility] History of Present illness Narrative* Vaibhav Carvalho APRN.TRUE - 11/29/2024 8:43 AM EDT Images from the original note were not included. NAME: Ariadna Haley [facility] NO.: [id number] DATE OF SERVICE: .November 29, 2024 (Deven) Some elements in this clinic note that are critical to medical decision making have been carefully reviewed and included from a prior clinic note dated: September 06, 2024 (Deven) Referring Provider: Dr. Manuel Ferris Additional Clinicians involved in Ariadna De Pazhugo's care: DIAGNOSIS: Multiple symptoms CASE SUMMARY / [...] to monitor; no current intervention required per [facility] recommendations. 7. Pre-diabetes (R73.03) Borderline [...] requiring a recent corticosteroid injection by her photoflash powder mixer. She experiences intermittent fatigue, shortness of breath, [...] injections. Shefollows with multiple doctors including and focuser, russian teacher, photoflash powder mixer and PCP. She has been told they [...] subcutaneously one time a week. Per PCP niziodiukgTOVKJ-djqmbk-odpksuuxd (BMX 1:1:1) 1:1:1 liqd Take 5 mL [...] (Crohn's [Other]) Mother . Vaibhav Carvalho APRN, MANAGER RELIABILITY-C, [facility] Provided at: [facility], [place], [place]: [place] [address] [place] [phone] documented in this encounterFirelands [facility] Center07-03-2025 History of Present illness Narrative* [...] was obtained from the patient/parent. Method: See [facility] for details on administration. 0.2 ml [...] Next Visit: as scheduled [facility] [id number] Telephone encounter Note* Telephone Encounter - Renea Schneider MA - 11/20/2024 12:00 PM EDT Patient coming in for treatment visit Wednesday11/29/24. Please add lab orders. thanks. Renea Schneider MA [facility]06-23-2025 Chief complaint+Reason for visit Narrative* [...] :29am [facility] Work Phone: 1(604) 420-537606-23-2025 Chief complaint+Reason for visit Narrative * Chief [...] :29am Sacroiliitis January 17, 2025 10 :29am [facility] Work Phone: 1(260) 903-511206-23-2025 Evaluation note* Diagnosis Onset Date Resolution Status [...] 10:29am [facility] Work Phone: 1(256) 646-675905-17-2025 History of Present illness Narrative* Lynne Ni [...] visit. Either the patient or their legal self pay representative has been informed of the risks [...] neurology/on metoprolol for POTs, avoid aggravating triggers, fpc pain recommendations per primary care provider/pain clinic/patient [...] measures, may consider osteoporosis treatment if on fpc steroids/abnormal bmd, take vitamin D script once [...] neurology/on metoprolol for POTs, avoid aggravating triggers, fpc pain recommendations per primary care provider/pain clinic/patient [...] measures, may consider osteoporosis treatment if on fpc steroids/abnormal bmd, take vitamin D script if level low, vitamin B12 with hematology, 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 [facility]/completed in 06/2021 (no results faxed to office, [...] pain: yes H/o precedent/frequent infection(s): as above Enthesopathy/[place]'s/heel/plantar tenderness: hands random painful/tingling Skin thickening, psoriasis, [...] COVID-19 original vaccine, age 12+ yr, monovalent (Ki[employer] - PURPLE TOP) 09/28/2020 10/19/2020 05/26/2021 COVID-19 vaccine, age 12+ yr ([employer] COMIRNATY) 02/23/2023 COVID-19 vaccine, age 12+ yr, bivalent (Kiip) 02/08/2022 Pneumovax no Flu shot no Tetanus [...] (33);NL cbc, cmp, negative hla b27; Outside [place] 06/2021 low vitamin D 16, vitamin b12-307;high [...] Z79.899 Long-term use of high-risk medication Z79.52 skilled nursing 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 M79.641, M79.642 [...] ures, may consider osteoporosis treatment if on fpc steroids/abnormal bmd, take vitamin D script once [...] (200mg) daily with a meal Please see wool puller every 6-12months while on Hydroxychloroquine. reStart azathioprine [...] touching your toes, sit-ups, using row machine fpc pain recommendations per primary care provider/pain clinic [...] video & audio (virtual) or phone or rvur-tb-tuws patient care, completing clinical documentation, obtaining and/or [...] Workers' Compensation? No Do you need an tray line supervisor? No [facility] MYCHART ZOOM MESSAGE Question 10/06/2024 [...] Function Percentile (range: 0 - 100) 1 [facility] PROMIS CAT V1.0 - [...] Fatigue Percentile (range: 0 - 100) 24 [facility] PROMIS CAT V1.1-PAIN INTERFERENCE-28 DAYS Question 10/06/2024 [...] Interference Percentile (range: 0 - 100) 4 [facility] SLAQ QUESTIONNAIRE Question 10/06/2024 9:11 PM EDT [...] my health Strongly Agree documented in this encounterFirelands [facility] Center05-17-2025 [facility] Instructions* Patient Instructions* Lynne Ni MD - [...] (200mg) daily with a meal Please see wool puller every 6-12months while on Hydroxychloroquine. azathioprine daily [...] your usual activities immediately. documented in this encounterFirelands Regional Medical Center05-16-2025 Telephone encounter Note * Telephone Encounter - Beatriz Sanchez LPN - 10/06/2024 1:46 PM EDT VM left that below message forwarded to her . Requested return call if unable to view message. [facility]05-16-2025 Miscellaneous Notes* Telephone Encounter - [...] accordingly. Lynne Ni MD documented in this encounterFirelands Regional Medical Center05-16-2025 Telephone encounter Note * Telephone [...] above. Please process accordingly. Lynne Ni MD [facility]04-30-2025 [facility]04-30-2025 Note [facility]04-29-2025 History of Present illness Narrative* Deborah Arroyo, [facility] - 09/19/2024 10:00 [...] GENETIC TESTING: None. SOCIAL HISTORY: Lives in [place], [place] with her and daughter. Employment: [employer] Level of education: high school Alcohol/cigarettes/other: tobacco- smokes 1ppd since teens; EtOH- denied; illicit drug use- denied FAMILY HISTORY: - Patient's ethnicity: Maternal - ; Paternal - . - Partner's ethnicity: not applicable. - No known -Bahraini, Mediterranean, /Djiboutian, Nigerien-North Korean/Cajun, or Ashkenazi Alevism ancestry unless noted above. - Parental consanguinity: [...] via the connective tissue disorder panel at [facility] for Ariadna's daughter. Follow up [...] greater than 50% of which was spent vsoj-sn-euno counseling. This plan is being carried out per Dr. Lance's recommendations. Deborah Arroyo MS, [facility] Licensed Genetic Counselor EPIC CC: Dr. Last Lance CC: Ariadna Haley [employer] documented in this encounterFirelands Regional Medical Center04-29-2025 [facility]04-29-2025 NoteR[facility]04-29-2025 History of Present illness Narrative* Ny Lance MD - 09/19/2024 7:46 AM EDT Images from the original note were not included. Department of Medical Genetics and Genomics OUTPATIENT NEW VISIT NOTE Recording using [employer] software for draft documentation of the visit was discussed with the patient/authorized self pay representative; all questions welcomed and answered. Patient/authorized self pay representative agreed to proceed Patient Name: Ariadna [...] has a history of using a palate student career development specialist. She reports delayed wound healing, possible hyperextensible [...] Gangrene - 02/04/2023 Steroid-Induced Osteoporosis - 02/04/2023 Non Cdl Driver Current Use of Systemic Steroids - 02/04/2023 [...] subcutaneously one time a week. Per PCP gtzovwdeswWBKPA-vhttsj-erjrzeeep (BMX 1:1:1) 1:1:1 liqd Take 5 mL [...] OF ablation SOCIAL HISTORY: - Lives in [place], [place] with her and daughters. - Highest level of education: High school. 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 Paternal - . - No known -Bahraini, Mediterranean, /Djiboutian, Ashkenazi Alevism, Nigerien-North Korean/Cajun, or [place] ancestry unless noted above. - [...] pedigree was collected by Deborah Arroyo MS, [facility] at the patient's separate genetic counseling encounter. The pedigree will be scanned into [employer] This information was reviewed with thefamily and [...] For Physiotherapists by Katarina Reza (Eds.), David Bills, Ho, 2003, ISBN [phone]; Examination and Treatment of a Patient with [...] symptoms when present, recommending follow-up with a account manager relief. 2. Chronic pain syndrome (G89.4) Chronic joint [...] 87 minutes was spent with patient for djau-nw-dyad evaluation, discussion of genetic differential diagnoses, management plan, counseling, chart review, documentation and coordination of care. Portions of family history were obtained by Deborah Arroyo MS, [facility], which were reviewed with family and edited as necessary. All questions were answered to the best of my knowledge. Contact information has been provided to the patient. Ny Lance MD Staff Sensor Operator Department of Medical Genetics and Genomics (DM) [facility] Appointments: [facility] CC: Deborah Arroyo MS, [facility] Ariadna Haley (via [employer]) [address] [facility] [place] [address] Lynne Ni MD CC to PCP via fax: Manuel Ferris [address] [place] [address] documented in this encounterFirelands Regional Medical Center04-28-2025 Telephone encounter Note * Telephone Encounter - Lynne Ni MD - 09/18/2024 4:52 PM EDT Notify patient medication sent as requested Thank you. Patient's request for medication is as follows: Requested Prescriptions Pending Prescriptions Disp Refills belimumab (BENLYSTA) 200 mg/mL auto-injector 12 mL 3 Sig: Inject 200mg (1 pen) subcutaneously once weekly Prescription(s) as above. Please process accordingly. Lynne Ni MD [facility]04-28-2025 Miscellaneous Notes* Telephone Encounter - [...] (1 pen) subcutaneously once weekly Patient prefers: [facility] Thank you! Maria Esther Pichardo, PharmD Clinical Pharmacist, [employer] [facility] ; Pool: P [facility] Pool #: [id number] documented in this encounterFirelands Regional Medical Center04-28-2025 Telephone encounter Note * Telephone Encounter - Macarena Sanchez - 09/18/2024 4:03 PM EDT Patient will be calling to reschedule her IV IG and benlysta. She needs to find a tobacco prizer and will call back with the dates that she will be available. [facility]04-28-2025 Miscellaneous Notes* Telephone Encounter - Macarena Sanchez - 09/18/2024 4:03 PM EDT Patient will be calling to reschedule her IV IG and benlysta. She needs to find a tobacco prizer and will call back with the dates that she will be available. documented in this encounterFirelands Regional Medical Center04-28-2025 Telephone encounter Note * Telephone [...] (1 pen) subcutaneously once weekly Patient prefers: [facility] Thank you! Maria Esther Pichardo, RolandD Clinical Pharmacist, [employer] [facility] ; Pool: P [facility] Pool #: [id number] [facility]04-22-2025 Telephone encounter Note* Telephone Encounter - Karina Pino - 09/12/2024 2:35 PM EDT Patient has been scheduled at [facility]04-22-2025 Miscellaneous Notes* Telephone Encounter - Karina Pino - 09/12/2024 2:35 PM EDT Patient has been scheduled at [facility] * Telephone Encounter - Sherrie Cortse - 09/12/2024 2:13 PM EDT Patient called [...] below scheduling for the drug. Cesilia Hicks [facility] You25 minutes ago (11:20 AM) DOMINGO Please [...] to Rheum provider. Anahi Becerril RN nurse lpn care manager: patient would like to know if she can [facility] her 8 [facility] [place] [facility] [place]. Basia Samuel RN documented in this encounterFirelands [facility] Center04-[facility]-2025 Telephone encounter Note * Telephone [...] daughter recommendations and patient informed. Sherrie Cortes [facility]04-21-2025 Telephone encounter Note* Telephone Encounter [...] below scheduling for the drug. Cesilia Hicks [facility] You25 minutes ago (11:20 AM) LS Please schedule her every 2 weeks for 3 doses, then every 4 weeks for Benlysta. Thanks, Cesilia Holman, [facility] You27 minutes ago (11:18 AM) LS Christen is submitted and pending - okay to set her up 7+ days out. When you call her ask her when she had her last SQ dose, per the provider okay to schedule the IV dose 1 week after her SQ dose. Thanks, Cesilia [facility]04-17-2025 Telephone encounter Note* Telephone Encounter - Lynne Ni MD - 09/07/2024 12:52 PM EDT Please start prior authorization for IV benlysta Signed therapy plan with loading doses if approved by insurance. May schedule 1week after last sq injection benlysta pen if approved. Thank you [facility]04-17-2025 Telephone encounter Note* Telephone Encounter - Enma Hamm RN - 09/07/2024 9:04 AM EDT Results discussed with pt. She is set for IVIG 10/04/24. She denies further questions needs or concerns at this time. Enma Hamm RN [facility]04-17-2025 Miscellaneous Notes* Telephone Encounter - Enma Hamm RN - 09/07/2024 9:04 AM EDT Results discussed with pt. She is set for IVIG 10/04/24. She denies further questions needs or concerns at this time. Enma Hamm RN documented in this encounterFirelands Regional Medical Center04-16-2025 Evaluation note* Diagnosis Onset Date Resolution Status Admit Date Lumbosacral spondylosis acute A pril 2024 3:42pm Other chronic pain acute September 06, 2024 3:42pm Sacroiliitis acute September 06, 2024 3:42pm Lumbosacral spondylosis acute J une 2024 11:15am Other chronic pain acute October 232024 11:15am Sacroiliitis acute November 13 11:15am [facility] Work Phone: 1(683) 220-534404-16-2025 Evaluation note* Diagnosis Onset Date Resolution Status [...] 9:03am [facility] Work Phone: 1(887) 519-457004-16-2025 Telephone encounter Note* Telephone Encounter - Basia Samuel RN - 09/06/2024 4:20 PM EDT Patient has requested to switch from Benlysta injections to infusions. Will forward to Rheum provider. Anahi Becerril RN nurse lpn care manager: patient would like to know if she can bring her 8 year old to treatmentsin the summer. Basia Samuel RN [facility]04-16-2025 History of Present illness Narrative* Vaibhav Carvalho APRN.CNP - 09/06/2024 9:00 AM EDT Images from the original note were not included. NAME: Ariadna Haley [facility] NO.: [id number] DATE OF SERVICE: September 06, 2024 (Deven) [...] injections. Shefollows with multiple doctors including and focuser, russian teacher, photoflash powder mixer and PCP. She has been told they [...] THREE TIMES A DAY^Disp: 135 tablet^Rfl: 1 nsymewnpyxVUIZK-zpficr-ldvwxbwgn (BMX 1:1:1) 1:1:1 liqd^Take 5 mL by [...] (Crohn's [Other]) Mother . Vaibhav Carvalho APRN, MANAGER RELIABILITY-C, [facility] Provided at: [place], [place] CC: Manuel Ferris MD [facility] [place] [address] documented in this encounterFirelands Regional Medical Center04-16-2025 [facility]04-14-2025 History of Present illness Narrative* Gordo Barfield MD - 09/04/2024 3:20 PM EDT Subjective Patient ID: Ariadna Haley is a 43 y.o. female who presents for Thyroid Nodule (Follow up ultrasound [facility] 08/24/24) Thyroid US shows a [id number] left inf pole TR4 nodule. Radiology notes no sig change Family History Problem Relation Name Age of Onset Crohn's disease Mother Nieves Thyroid disease Mother Nieves Stomach cancer Father Micheal Cancer Father Micheal Pancreatitis Father Micheal No Known Problems Sister 1 No Known Problems Daughter Lung disease Son Diabetes Maternal Grandmother Lisandro Heart failure Maternal Grandmother Cleginnyura Rheum arthritis Maternal Grandmother Lisandro Other (lung issue) Child 1 son with lung issue, 3 daughters Active Ambulatory Problems Diagnosis Date Noted Autoimmune disease ([facility]) 06/01/2023 Fibromyalgia 06/01/2023 Autonomic dysfunction [...] Tobacco use disorder 07/06/2023 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 Depression, recurrent ([facility]) 06/09/2023 Discoid lupus erythematosus ([facility]) 02/14/2022 Disturbance of skin sensation 07/06/2023 Elevated sed rate 03/05/2021 High total serum IgM 03/05/2021 Enthesopathy of hip region 07/06/2023 Essential hypertension ([facility]) 06/09/2023 Excessive and frequent menstruation with irregular cycle 09/24/2022 Family history of Crohn's disease 03/05/2021 Hair loss 03/05/2021 Hyperlipidemia ([facility]) 05/31/2014 salvage determiner current use of systemic steroids 02/04/2023 Long-term use of high-risk medication 06/15/2022 Long-term use of Plaquenil 03/05/2021 LPRD (laryngopharyngeal reflux disease) 07/06/2023 Megaloblastic anemia due to vitamin B12 deficiency 03/04/2022 Myalgia 07/06/2023 Obesity, Class III, BMI 40-49.9 (morbid obesity) ([facility]) 09/07/2022 Obstructive sleep apnea syndrome 05/20/2022 Oral lesion 07/06/2023 Pain, hip 07/06/2023 Rash and nonspecific skin eruption 03/05/2021 Steroid-induced osteoporosis ([facility]/HCC) 02/04/2023 Somnolence, daytime 05/20/2022 Secondary osteoarthritis [...] Insulin resistance 03/07/2024 Lupus erythematosus 04/06/2024 Sacroiliitis ([facility]/HCC) 04/06/2024 Resolved Ambulatory Problems Diagnosis Date Noted [...] % gel ergocalciferol (Vitamin D2) 1.25 MG (08886 UT) capsule Take 50,000 Units by mouth [...] for more aggressive care documented in this encounterCenterpoint Medical CenterQlkoyknzot79-02-2603 Telephone encounter Note* Telephone Encounter - Blank Kimball - 09/02/2024 10:28 AM EDT Called and spoke with patient, patient is scheduled for a VV on 10/07/24 at 8:00am. Patient stated will complete labs a walk in [facility]04-12-2025 Miscellaneous Notes* Telephone Encounter - [...] diagnoses: Vitamin D deficiency documented in this encounterFirelands Regional Medical Center04-11-2025 Telephone encounter Note * Telephone [...] above. Please process accordingly. Lynne Ni MD [facility]04-11-2025 Telephone encounter Note* Telephone Encounter [...] Ni MD Assoc. diagnoses: Vitamin D deficiency [facility]04-07-2025 Telephone encounter Note* Telephone Encounter - Renea Schneider MA - 08/28/2024 11:04 AM EDT Do you want labs? Patient coming in Wednesday09/06/24 for follow up treatment. Thanks, Renea Schneider MA [facility]04-01-2025 Miscellaneous Notes* Telephone Encounter - Renea Schneider MA - 08/28/2024 11:04 AM EDT Do you want labs? Patient coming in Wednesday09/06/24 for follow up treatment. Thanks, Renea Schneider MA documented in this encounterFirelands Regional Medical Center04-01-2025 Miscellaneous Notes* Telephone Encounter - Renea Schneider MA - 11/20/2024 12:00 PM EDT Patient coming in for treatment visit Wednesday11/29/24. Please add lab orders. thanks. Renea Schneider MA documented in this encounterFirelands Regional Medical Center03-27-2025 NoteR[facility]view [facility] Institute03-18-2025 Telephone encounter Note* Telephone Encounter - Basia [...] and patient is aware. Basia Samuel RN [facility]03-18-2025 Miscellaneous Notes* Telephone Encounter - [...] aware. Basia Samuel RN documented in this encounterFirelands Regional Medical Center03-18-2025 NoteRiverview Health Institute03-18-2025 History of Present illness Narrative* Basia Samuel RN - 08/08/2024 9:03 AM EDT Patient states that she spoke with provider and she will defer IV iron for now, she is taking oral iron and will have labs rechecked in 1 month Basia Samuel RN documented in this encounterFirelands Regional Medical Center03-05-2025 History of Present illness Narrative* [...] lupus being treated by rheumatology at [facility] on steroids, Plaquenil and monoclonal antibody [...] , Rfl: ergocalciferol (Vitamin D-2) 1.25 MG (67326 UT) capsule, Take 1 capsule (50,000 Units) [...] By signing my name below, I, Carina BatistaKimberly GILLIS , Scribe attest that this documentation [...] exam, discussion and plan. documented in this encounterMer[facility] Health [facility] Work Phone: 1(369) 883-489603-05-2025 Instructions* Patient Instructions* Aissatou Hanson RN - [...] time of your visit. documented in this encounterMercy Health St. [facility] Work Phone: 1(187) 918-588603-04-2025 History of Present illness Narrative* Bernabe English [...] ointment bid. On Plaquenil and Benlysta from russian teacher and started IVIG from career agent. Follow up Diagnosis: Hidradenitis Location: thighs Last [...] given frequent flares of thrush. Start Nystatin 403776 unit suspension qid x 14 days. Recommended [...] not swallow it. Related Medications nystatin (Mycostatin) 195465 UNIT/ML suspension Take 4 mL (400,000 Units) [...] is needed. Instructed to follow up with YARD PIPE GRADER for further work up. Next Visit: 1 year documented in this encounterCenterpoint Medical [id number] History of Present illness Narrative* Luna Emanuel [...] been reviewed prior to dispensing the medication. Fig Bar Machine Operator Assessment Patient confirmed: Yes Med/dose confirmed: Yes Supplies needed: No supplies needed Missed doses: No Copay amount: 0 Payment confirmed: Yes Delivery method: FedEx Signature required: Waived on patient request Delivery address: [address] [place] [address] Delivery date: 07/27/24 Questions or concerns for the pharmacist?: No Did you have any side effects believed to be related to this medication, that resulted in hospitalization?: No Current Outpatient Medications on File Prior to Visit Medication Sig wcwtozxmmaDFYVG-esfrym-wmirbbjsa (BMX 1:1:1) 1:1:1 liqd Take 5 mL [...] facility-administered medications on file prior to visit. [facility] RX SPECIALTY CLINICAL ASSESSMENT - INFLAMMATORY CONDITIONS [...] longer tolerated. Luna Emanuel documented in this encounterFirelands Regional Medical Center03-04-2025 NoteRiverview Health Institute02-27-2025 NoteHNO ID: [id number] Author: ALHAJI HEAD, DO Service: ? Author Type: Physician Type: Progress Notes Filed: 07/21/2024 13:05 Note Text: VIRTUAL VISIT PROGRESS NOTE This is a virtual visit using MyChart Zoom Video Visit. It required patient-provider interaction for the medical decision making as documented below. I have communicated my name and active licensure. The patient's identity and physical location were verified at the time of this visit. Either the patient or their legal self pay representative has been informed of the risks [...] of 18 Current Outpatient Medications Medication Sig bvnleikgeeIRKDH-ojfcfj-vdjardibh (BMX 1:1:1) 1:1:1 liqd Take 5 mL [...] WHILE ON* belimumab ( (more content not included)...[facility]02-27-2025 History of Present illness Narrative* Alhaji Head DO - 07/20/2024 11:41 AM EST VIRTUAL VISIT PROGRESS NOTE This is a virtual visit using Slipstream Zoom Video Visit. It required patient- provider interaction for the medical decision making as documented below. I have communicated my name and active licensure. The patient's identity and physical location wereverified at the time of this visit. Either the patient or their legal self pay representative has been informed of the risks [...] of 18 Current Outpatient Medications Medication Sig icgmwidqctQDULA-jfysij-rclzjierl (BMX 1:1:1) 1:1:1 liqd Take 5 mL [...] on the R. The patient or authorized self pay representative has agreed to proceed with the [...] axillary nodule which is being followed by auto apprentice mechanic. Through shared decision making with the patient, [...] DO July 21, 2024 documented in this encounterFirelands Regional Medical Center02-26-20[place] [address] Pain Management Procedure Note Signed Patient: Ariadna Haley MR#: [id number] : 1980 Acct:[id number] Age/Sex: 43 / F Adm Date: 5 Loc: Room: Type: [facility] Attending Dr: Adolfo Kang MD Copies to: [...] MD 07/19/24 1104 Signed By: 07/19/24 1134 [facility]02-19-2025 Instructions* Patient Instructions* Marky Barnes PA-C - 07/12/2024 2:33 PM EST Alginate therapy (Reflux Raft, Reflux Gourmet) documented in this encounterFirelands Regional Medical Center02-19-2025 NoteRiverview Health Institute02-19-2025 History of Present illness Narrative* Marky Barnes PA-C - 07/12/2024 2:14 PM EST Images from the original note were not included. [facility] [place] [facility] NOTE CC: Ariadna Haley is a [...] Current medication(s): Current Outpatient Medications Medication Sig adfzwdassxXSDEV-srlzke-rhurmjimb (BMX 1:1:1) 1:1:1 liqd Take 5 mL [...] Level: 3 - Low documented in this encounterFirelands Regional Medical Center02-17-2025 Evaluation note* Diagnosis Onset Date Resolution Status Admit Date Lumbosacral spondylosis acute F ebruary 2024 3:16pm Other chronic pain acute Februa 2024 3:16pm Sacroiliitis acute June 3:16pm [facility] Work Phone: 1(270) 913-410502-17-2025 Evaluation note* Diagnosis Onset Date Resolution Status Admit Date Lumbosacral spondylosis acute F ebruary 2024 3:16pm Other chronic pain acute Februa 2024 3:16pm Sacroiliitis acute June 3:16pm Lumbosacral spondylosis acute 2024 3:40pm Other chronic pain acute July 31, 2024 3:40pm Sacroiliitis acute July 31, 2024 3:40pm [facility] Work Phone: 1(731) 320-943802-17-2025 Telephone encounter Note* Telephone Encounter - Krista Braswell MA - 07/10/2024 7:28 AM EST Pt was notified via . [facility]02-17-2025 Miscellaneous Notes* Telephone Encounter - [...] accordingly. Lynne Ni MD documented in this encounterFirelands Regional Medical Center02-16-2025 Telephone encounter Note * Telephone [...] above. Please process accordingly. Lynne Ni MD [facility]02-06-2025 History of Present illness Narrative* [...] been reviewed prior to dispensing the medication. Fig Bar Machine Operator Assessment Patient confirmed: Yes Med/dose confirmed: Yes Supplies needed: No supplies needed Missed doses: No Estimated days supply on hand: 1 Copay amount: 0 Payment confirmed: Yes Delivery method: FedEx Signature required: Waived on patient request Delivery address: [address] [place] [id number] Delivery date: 07/05/24 Questions or concerns for [...] facility-administered medications on file prior to visit. [facility] RX SPECIALTY CLINICAL ASSESSMENT - INFLAMMATORY CONDITIONS [...] longer tolerated. Luna Emanuel documented in this encounterFirelands Regional Medical Center02-06-2025 NoteRiverview Health Institute01-31-2025 Telephone encounter Note* Telephone Encounter - Krista Fonseca MA - 06/23/2024 8:27 AM EST Pt has been notified via [employer]. [facility]01-31-2025 Miscellaneous Notes* Telephone Encounter - Krista Fonseca MA - 06/23/2024 8:27 AM EST Pt has been notified via [employer]. * Telephone Encounter - Lynne Ni MD [...] accordingly. Lynne Ni MD documented in this encounterFirelands Regional Medical Center01-30-2025 Telephone encounter Note * Telephone [...] above. Please process accordingly. Lynne Ni MD [facility]01-29-2025 Telephone encounter Note* Telephone Encounter - Sherrie Cortes - 06/21/2024 2:10 PM EST Thanks for the clarification! I didn't schedule the patient yet for Iron because of the question below so we are all good. Thank you! Sherrie Cortes [facility]01-29-2025 Miscellaneous Notes* Telephone Encounter - [...] we will recheck. thanks documented in this encounterFirelands Regional Medical Center01-29-2025 Telephone encounter Note * Telephone [...] is aware you will call if needed. [facility]01-29-2025 Telephone encounter Note* Telephone Encounter - Vaibhav Carvalho APRN.CNP - 06/21/2024 1:07 PM EST Ok that is fine she can try oral iron Ferrous sulfate 325 mg every other day. Ok to keep her next appointment and we will recheck. thanks [place] [address]-28-2025 Telephone encounter Note* Telephone Encounter - Sherrie Cortes - 06/20/2024 8:38 AM EST Left another message for patient. Sent MyChart to call back to schedule infusions when she's ready to schedule and provided phone number. Sherrie Cortes [facility]01-28-2025 Miscellaneous Notes* Telephone Encounter - [...] callback with any questions. documented in this encounterFirelands Regional Medical Center01-24-2025 Telephone encounter Note * Telephone Encounter - Sherrie Cortes - 06/16/2024 3:32 PM EST Call placed to patient, no answer. Left detailed message to call back to schedule for Venofer. Sherrie Cortes [facility]01-24-2025 Telephone encounter Note* Telephone Encounter - Vaibhav Carvalho APRN.CNP - 06/16/2024 12:26 PM EST Called patient and left a message regarding iron infusions. I did inform patient that she is low oniron and we can replace with IV infusion. Will have the office call to schedule. Encouraged to callback with any questions. [facility]01-23-2025 Telephone encounter Note* Telephone Encounter [...] Pt had recent mammogram that was negative [facility]point Medical CenterOcivlszxbk31-03-1000 Miscellaneous Notes* Telephone Encounter - KELVIN Cabrera [...] mammogram that was negative documented in this encounterCenterpoint Medical CenterXieaykllfb47-57-8645 History of Present illness Narrative* Iraida Pate APRN.CNP - 06/14/2024 10:43 AM EST Glucose - [facility] CPT 59068 Hydrogen Breath Test Ariadna Haley 1980 June 14, 2024 Referring Physician: Bandar Portillo NP Indication: NSG TEST INDICATIONS: Diarrhea R19.7, Abdominal Pressure R10.9 Weight: 275 lbs Location: [facility] Duration of Test: 2 hrs Hydrogen Methane [...] Signature: Iraida Pate APRN.CNP documented in this encounterFirelands Regional Medical Center01-21-2025 Progress note* [facility] - [...] 13, 2024 TIME: 10:29 AM PAGER/CONTACT #: [facility]01-21-2025 Miscellaneous Notes* Allied Health - [...] SIGNATURE: Jose Daniel Erwin PATIENT NAME: Ariadna Branchfrancisco javier DATE: June 13, 2024 TIME: 10:29 AM PAGER/CONTACT #: documented in this encounterFirelands Regional Medical Center01-21-2025 NoteRiverview Health Institute01-21-2025 History of Present illness Narrative* Vaibhav Carvalho APRN.CNP - 06/13/2024 9:07 AM EST Images from the original note were not included. NAME: Jose Carlosfrancisco javierAriadna CLINIC NO.: [id number] DATE OF SERVICE: June 13, 2024 (Deven) [...] injections. Shefollows with multiple doctors including and focuser, russian teacher, photoflash powder mixer and PCP. She has been told they [...] (Crohn's [Other]) Mother . Vaibhav Carvalho APRN, MANAGER RELIABILITY-C, [facility] Provided at: [place], [place] CC: Manuel Ferris MD [address] [facility] [address] documented in this encounterFirelands Regional Medical Center01-20-2025 NoteRiverview Health Institute01-20-2025 History of Present illness Narrative* Yousef, Lee - 06/12/2024 2:31 PM EST CMN RECEIVED BY [employer] SEC VIA FAX, COMPLETED, AND PLACED IN PROVIDER MAILBOX FOR SIGNATURE Lee Friedman Coordinator III [employer] SENDING CMN: Josh SIGNED AND DATED CMN, FAXED TO DME & CONFIRMATION PAGE RECEIVED: 06.28.2024 documented in this encounterFirelands Regional Medical Center01-20-2025 Telephone encounter Note * Telephone Encounter - Margret Cuenca MA - 06/12/2024 12:00 PM EST Patient has an OTV appointment on 06/13. Please place lab orders. Margret Cuenca MA [facility]01-20-2025 Miscellaneous Notes* Telephone Encounter - Margret Cuenca MA - 06/12/2024 12:00 PM EST Patient has an OTV appointment on 06/13. Please place lab orders. Margret Cuenca MA documented in this encounterFirelands Regional Medical Center01-14-2025 History of Present illness Narrative* [...] been reviewed prior to dispensing the medication. Fig Bar Machine Operator Assessment Patient confirmed: Yes Med/dose confirmed: Yes Supplies needed: No supplies needed Missed doses: No Estimated days supply on hand: 1 Copay amount: 0 Payment confirmed: Yes Delivery method: FedEx Signature required: Waived on patient request Delivery address: [address] [place], [facility] [address] Delivery date: 06/08/24 Questions or concerns for [...] facility-administered medications on file prior to visit. [facility] RX SPECIALTY CLINICAL ASSESSMENT - INFLAMMATORY CONDITIONS [...] longer tolerated. Luna Emanuel documented in this encounterFirelands Regional Medical Center01-14-2025 NoteRiverview Health Institute01-14-2025 History of Present illness Narrative* KELVIN Cabrera [...] Ambulatory Problems Diagnosis Date Noted Autoimmune disease ([facility]) 06/01/2023 Fibromyalgia 06/01/2023 Autonomic dysfunction [...] 03/05/2021 Hair loss 03/05/2021 Hyperlipidemia (CMS/HCC) 05/31/2014 salvage determiner current use of systemic steroids 02/04/2023 Long-term [...] Chronic laryngopharyngitis COVID-19 vaccine administered x 2 ([employer]) Difficulty walking Fatigue Fibromyalgia, primary GERD (gastroesophageal [...] for annual unless needed otherwise. Documented by KELVNI Cabrera on behalf of: KELVIN Cabrera documented in this encounterCenterpoint Medical CenterVrgansitld00-45-7098 NoteRiverview Health Institute12-23-2024 History of Present illness Narrative* Deisy Jaime LSW - 05/15/2024 9:09 AM EST Patient's name appears on the [facility] First Time Treatment Report for a non- oncology treatment. No psychosocial assessment is indicated. BILL Rosenberg Goals of Care Advance Directives are not on file. documented in this encounterFirelands Regional Medical Center12-20-2024 History of Present illness Narrative* [...] been reviewed prior to dispensing the medication. Fig Bar Machine Operator Assessment Patient confirmed: Yes Med/dose confirmed: Yes Supplies needed: No supplies needed Missed doses: No Estimated days supply on hand: 1 Copay amount: 0 Payment confirmed: Yes Delivery method: FedEx Signature required: Waived on patient request Delivery address: [address] [place] [address] Delivery date: 05/16/24 Questions or concerns for [...] facility-administered medications on file prior to visit. [facility] RX SPECIALTY CLINICAL ASSESSMENT - INFLAMMATORY CONDITIONS [...] longer tolerated. Luna Emanuel documented in this encounterFirelands Regional Medical Center12-20-2024 NoteRiverview Health Institute12-04-2024 Nurse Note* Radha Schofield MA - 04/26/2024 9:32 AM EST Patient Identification confirmed: yes. Injection given and documented on JUL per provider order. Radha Schofield MA [facility]12-04-2024 Nurse Note* Radha Schofield MA - 04/26/2024 9:32 AM EST Patient Identification confirmed: yes. Injection given and documented on JUL per provider order. Radha Schofield MA documented in this encounterFirelands Regional Medical Center11-22-2024 Telephone encounter Note * Telephone Encounter - Gay Barnett - 04/14/2024 12:11 PM EST Patient coming in for a sibo breath test on Wednesday and has been on keflex for 3 days and needs to be on for ten so she will need to reschedule [facility]11-22-2024 Miscellaneous Notes* Telephone Encounter - Gay Barnett - 04/14/2024 12:11 PM EST Patient coming in for a sibo breath test on Wednesday and has been on keflex for 3 days and needs to be on for ten so she will need to reschedule documented in this encounterFirelands Regional Medical Center11-19-2024 [facility]11-18-2024 Miscellaneous Notes* Telephone Encounter - Sherrie Cortes [...] retail prescription at designated insurance specialty pharmacy. Elpidiogodwin Arce PharmD, BCOP * Telephone Encounter - Enma [...] Please advise. Sherrie Cortes documented in this encounterFirelands Regional Medical Center11-18-2024 Telephone encounter Note * Telephone Encounter - Sherrie Cortes - 04/10/2024 2:12 PM EST Patient requested this appointment be rescheduled for the end of April. She has been scheduled for 05/19, she is all set. Thank you! Sherrie Cortes [facility]11-18-2024 Telephone encounter Note* Telephone Encounter - Shantel Arce RPh - 04/10/2024 2:07 PM EST SUBQ products (eg, 20% [Cuvitru, Hizentra, Xembify]) or IM products (eg, 16% [GamaSTAN]) intravenously. It would depend upon insurance coverage and would be done as a retail prescription at designated insurance specialty pharmacy. Elpidio Arce, PharmD, BCOP [facility] Work Phone: [phone] 282-411011-18-2024 Telephone encounter Note* Telephone Encounter - Enma [...] appt per pt request Enma Hamm RN [facility]11-18-2024 Telephone encounter Note* Telephone Encounter - Enma Hamm RN - 04/10/2024 12:54 PM EST Called to discuss with pt. She was researching online and found SCIG a weekly subq injection to give herself that is less dose, and has less side effects. Pharmacy/[facility]ason: please advise Enma Hamm RN [facility]11-18-2024 Telephone encounter Note* Telephone Encounter - Vera Najera MD - 04/10/2024 12:26 PM EST Really sorry - I don't recall the home infusion of IVIG - I think it is safer to give it to her in-house as IV so we can monitor infusion reactions. Sorry if I created a misunderstanding. 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 Depression, recurrent ([facility]) 06/09/2023 Discoid lupus erythematosus ([facility]) 02/14/2022 Disturbance of skin sensation 07/06/2023 Elevated sed rate 03/05/2021 High total serum IgM 03/05/2021 Enthesopathy of hip region 07/06/2023 Essential hypertension ([facility]) 06/09/2023 Excessive and frequent menstruation with irregular cycle 09/24/2022 Family history of Crohn's disease 03/05/2021 Hair loss 03/05/2021 Hyperlipidemia ([facility]) 05/31/2014 salvage determiner current use of systemic steroids 02/04/2023 Long-term use of high-risk medication 06/15/2022 Long-term use of Plaquenil 03/05/2021 LPRD (laryngopharyngeal reflux disease) 07/06/2023 Megaloblastic anemia due to vitamin B12 deficiency 03/04/2022 Myalgia 07/06/2023 Obesity, Class III, BMI 40-49.9 (morbid obesity) ([facility]) 09/07/2022 Obstructive sleep apnea syndrome [...] AREA NEEDED ergocalciferol (Vitamin D2) 1.25 MG (86803 UT) capsule Take 50,000 Units by mouth [...] referred from the [facility] documented in this encounterCenterpoint Medical [id number] Telephone encounter Note* Telephone Encounter - Sherrie [...] Triage was involved? Please advise. Sherrie Cortes [facility]11-15-2024 NoteR[facility] Institute11-15-2024 History of Present illness Narrative* Deisy Jaime LSW - 04/07/2024 9:30 AM EST Patient's name appears on the [facility] First Time Treatment List for a non- oncology treatment. No psychosocial assessment is indicated. BILL Rosenberg Goals of Care Advance Directives are not on file SIGNATURE: JUSTICE Rosenberg PATIENT NAME: Ariadna Haley DATE: April 07, 2024 TIME: 9:31 AM PAGER/CONTACT #: documented in this encounterFirelands Regional Medical Center11-14-2024 Evaluation + Plan note* Assessment [...] her Raynaud's. All her questions were answered. [facility]11-14-2024 Miscellaneous Notes* Assessment & Plan Note [...] her questions were answered. documented in this encounterTriHealth Good Samar[facility]11-14-2024 History of Present illness Narrative* Hayden [...] Interpersonal Safety: Unknown (07/15/2023) Received from [facility] Fear of Current [...] Assessment and Plan: Problem List Rheumatoid arthritis ([facility]) Relevant Medications ibuprofen (ADVIL,MOTRIN) 200 mg tablet predniSONE (STERAPRED DS) 10 mg tablet pack Systemic lupus erythematosus ([facility]) - Primary Relevant Medications ibuprofen (ADVIL,MOTRIN) 200 [...] orders for this visit: Systemic lupus erythematosus ([facility]) - Vas art doppler lwr bilat mult lev/PVR; Future Cold extremities - [facility] [place], [place] - Vas art doppler lwr bilat mult lev/PVR; Future Pain of lower extremity, unspecified laterality - [facility] [place] - Vas art doppler lwr bilat mult lev/PVR; Future Rheumatoid arthritis, involving unspecified site, unspecified whether rheumatoid factor present ([facility]) Current smoker 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 Hayden [...] you for your understanding. documented in this encounterTriHealth Good Samar[facility]11-14-2024 Instructions* Patient Instructions* Hayden Arciniega MD - 04/06/2024 9:40 AM EST Are You Ready To Kick The Habit? Free Tobacco Cessation Resources [facility] Services [facility] provide all employees with free tobacco cessation services that include: Counseling to understand nicotine addiction Education about medications that can help you successfully quit Assistance with developing a plan to quit Call to set up an individual appointment or find out when group classes will be held: [facility]: [phone] [facility]: [phone] [facility]: [phone] [facility]: [phone] Quit Smoking Action Plan and Resources [facility] offers an eight-week, online smoking cessation plan to all [facility] employees, regardless of whether [employer] is your medical insurance provider. Go to www.[email or web address]/employeewellness and click the Health Risk Assessment and Resources link to get started. In the Isqwh6Rwpaxs menu, click Action Plans instead of Health Risk Assessment to access the Quit Smoking Action Plan. Additional smoking cessation resources are also available to all [facility] employees on the Luntr4Djzpis web page at www.UNYQ/quitsmoking. [employer] Tobacco Cessation Program If [employer] is your medical insurance provider, there are more free resources available to you, including: No copays or deductibles on local tobacco cessation counseling services to help you quit Prescription assistance for tobacco cessation medications to help you quit For details about the tobacco cessation program available to [employer] members, go to www.SmartPill.[employer] (Search: Tobacco Cessation Program). [place] Tobacco Quit Line 1-519-VAIK-NOW ( ) is a toll-free, telephonic service that helps [place] residents quit smoking and using tobacco. It is staffed by experts who tailor a quit plan for you and provide you with advice. [place] Tobacco Quit Line 6-461-CIXU-NOW ( ) is a toll-free, telephonic service that helps [place] residents quit smoking and using tobacco. It is staffed by experts who tailor a quit plan for you and provide you with advice. Two weeks of nicotine replacement therapy may be provided at no charge, if needed. Additional Resources These national organizations also offer free information and resources to help you quit tobacco: [place] [employer]--www.cancer.org/healthy/stayawayfromtobacco [place] [employer]--www.heart.org (Search: Quit Smoking) Centers for Disease Control and Prevention--www.cdc.gov/tobacco [place] Lung [employer]--www.lungusa.org documented in this encounterTriHealth [facility]11-11-2024 Telephone encounter Note* Telephone Encounter - Marky Mike DO - 04/03/2024 9:36 AM EST Changed terbinafine to itraconazole at pt request. [facility]point Medical CenterDawtfffcqh38-07-0293 Miscellaneous Notes* Telephone Encounter - Marky Mike DO - 04/03/2024 9:36 AM EST Changed terbinafine to itraconazole at pt request. documented in this encounterCenterpoint Medical CenterZlopddlcub35-81-5287 Telephone encounter Note* Telephone Encounter - Lynne [...] above. Please process accordingly. Lynne Ni MD [facility]11-10-2024 Miscellaneous Notes* Telephone Encounter - [...] accordingly. Lynne Ni MD documented in this encounterFirelands Regional Medical Center11-10-2024 History of Present illness Narrative* [...] with her immunosuppressive therapy. documented in this encounterCenterpoint Medical [id number] Instructions* Patient Instructions* Vera Najera MD - 04/01/2024 4:28 PM EST Obtain body fluid culture from [facility]. B12 shot today and every 4 weeks. Continue Folic acid. Frequent infections plan IVIG for hypogammaglobulinemia Start when approved. RTC 3 months repeat labs same day. IVIG same day. documented in this encounterFirelands Regional Medical Center11-08-2024 NoteRiverview [facility] Institute11-08-2024 History of Present illness Narrative* Ashly Castillo - 03/31/2024 12:29 PM EST CMN RECEIVED BY [employer] VIA FAX, COMPLETED, AND PLACED IN PROVIDER MAILBOX FOR SIGNATURE Ashly Castillo Cage Shift Manager II 03/31/2024 [employer] SENDING CMN: JOSH SIGNED AND DATED CMN, FAXED TO DME & CONFIRMATION PAGE RECEIVED: 04/11/2024 documented in this encounterFirelands Regional Medical Center11-07-2024 Telephone encounter Note * Telephone Encounter - Mae Elaine - 03/30/2024 8:01 AM EST Pt is scheduled and instructions were sent thru my chart. [facility]11-07-2024 Miscellaneous Notes* Telephone Encounter - [...] note were not included. documented in this encounterFirelands Regional Medical Center11-06-2024 Telephone encounter Note * Telephone Encounter - Mae Elaine - 03/29/2024 9:02 AM EST Im for pt- saved time on 04/18 7:45 Also sent mychart msg. dm [facility]11-04-2024 NoteRiverview [facility] Institute11-04-2024 History of Present illness Narrative* Vera Najera MD - 03/27/2024 3:03 PM EST Images from the original note were not included. NAME: Ariadna Haley [facility] NO[facility] [id number] DATE OF SERVICE: March 27, 2024 ([place]quis) Some elements in this clinic note that are critical to medical decision making have been carefully reviewed and included from a prior clinic note dated: December 27, 2023 (Liz) Referring Provider: Dr. Manuel Ferris Additional Clinicians involved in Ariadna Haley's care: VIRTUAL VISIT PROGRESS NOTE This is a virtual visit using [employer] Video Call. It required patient- provider interaction for the medical decision making as documented below. I have communicated my name and active licensure. The patient's identity and physical location wereverified at the time of this visit. Either the patient or their legal self pay representative has been informed of the risks [...] noted. PLAN: Obtain body fluid culture from [facility]. B12 shot today and every 4 [...] injections. Shefollows with multiple doctors including and focuser, russian teacher, photoflash powder mixer and PCP. She has been told they [...] [facility] Hematology and Oncology Services Provided at: [place], [place] CC: Manuel Ferris MD [address] [address] documented in this encounterFirelands Regional Medical Center10-31-2024 History of Present illness Narrative* [...] Ambulatory Problems Diagnosis Date Noted Autoimmune disease ([facility]) 06/01/2023 Fibromyalgia 06/01/2023 Autonomic dysfunction [...] Tobacco use disorder 07/06/2023 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 Depression, recurrent ([facility]) 06/09/2023 Discoid lupus erythematosus ([facility]) 02/14/2022 Disturbance of skin sensation 07/06/2023 Elevated sed rate 03/05/2021 High total serum IgM 03/05/2021 Enthesopathy of hip region 07/06/2023 Essential hypertension ([facility]) 06/09/2023 Excessive and frequent menstruation with irregular cycle 09/24/2022 Family history of Crohn's disease 03/05/2021 Hair loss 03/05/2021 Hyperlipidemia ([facility]) 05/31/2014 salvage determiner current use of systemic steroids 02/04/2023 Long-term use of high-risk medication 06/15/2022 Long-term use of Plaquenil 03/05/2021 LPRD (laryngopharyngeal reflux disease) 07/06/2023 Megaloblastic anemia due to vitamin B12 deficiency 03/04/2022 Myalgia 07/06/2023 Obesity, Class III, BMI 40-49.9 (morbid obesity) ([facility]) 09/07/2022 Obstructive sleep apnea syndrome 05/20/2022 Oral lesion 07/06/2023 Pain, hip 07/06/2023 Rash and nonspecific skin eruption 03/05/2021 Steroid-induced osteoporosis ([facility]) 02/04/2023 Somnolence, daytime 05/20/2022 Secondary osteoarthritis of multiple sites 03/05/2021 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 02/04/2023 Swelling of lymph nodes 03/05/2021 Vitamin D deficiency 03/06/2021 Vitamin B12 deficiency 05/31/2014 Pure hypercholesterolemia, unspecified ([facility]) 08/10/2023 Hoarse 08/10/2023 Thyroid nodule ([facility]) 08/10/2023 Shortness of breath 07/13/2023 [...] of removal of cyst 2012 HTN (hypertension) ([facility]) Hx of abnormal cervical Pap smear Insulin resistance Laryngopharyngeal reflux disease Lupus Numbness Oral thrush Prediabetes Sleep apnea Weakness of limb HISTORY PAST MEDICAL HISTORY SOCIAL HISTORY Past Medical History: Diagnosis Date Anxiety Cervical lymphadenopathy Chronic laryngopharyngitis COVID-19 vaccine administered x 2 ([employer]) Difficulty walking Fatigue Fibromyalgia, primary GERD (gastroesophageal [...] behalf of: KELVIN Cabrera documented in this encounterCenterpoint Medical CenterJhvfschfgu07-24-7553 Nurse Note* Stacy Gutiérrez MA - 03/23/2024 10:16 AM EDT Patient Identification confirmed: yes. Injection given and documented on MAR per provider order. Stacy Gutiérrez MA [facility]10-31-2024 Nurse Note* Stacy Gutiérrez MA - 03/23/2024 10:16 AM EDT Patient Identification confirmed: yes. Injection given and documented on MAR per provider order. Stacy Gutiérrez MA documented in this encounterFirelands Regional Medical Center10-28-2024 Telephone encounter Note * Telephone Encounter - Mae Elaine - 03/20/2024 12:37 PM EDT Images from the original note were not included. [facility]10-26-[facility] History of Present illness Narrative* [...] visit. Either the patient or their legal self pay representative has been informed of the risks [...] measures, may consider osteoporosis treatment if on fpc steroids/abnormal bmd, take vitamin D script once [...] neurology/on metoprolol for POTs, avoid aggravating triggers, fpc pain recommendations per primary care provider/pain clinic/patient [...] measures, may consider osteoporosis treatment if on fpc steroids/abnormal bmd, take vitamin D script if [...] neurology/on metoprolol for POTs, avoid aggravating triggers, fpc pain recommendations per primary care provider/pain clinic/patient [...] neurology/on metoprolol for POTs, avoid aggravating triggers, fpc pain recommendations per primary care provider/pain clinic/patient [...] Due for eye exam. [facility]/completed in 06/2021 (no results faxed to office, [...] pain: yes H/o precedent/frequent infection(s): as above Enthesopathy/[place]'s/heel/plantar tenderness: hands random painful/tingling Skin thickening, psoriasis, [...] COVID-19 original vaccine, age 12+ yr, monovalent ([employer] - PURPLE TOP) 09/28/2020 10/19/2020 05/26/2021 COVID-19 vaccine, age 12+ yr ([employer] COMIRNATY) 02/23/2023 COVID-19 vaccine, age 12+ yr, bivalent ([employer]) 02/08/2022 Pneumovax no Flu shot no Tetanus [...] (33);NL cbc, cmp, negative hla b27; Outside [place] 06/2021 low vitamin D 16, vitamin b12-307;high [...] Z79.899 Long-term use of high-risk medication Z79.52 skilled nursing current use of systemic steroids M79.641, M79.642 [...] neurology/on metoprolol for POTs, avoid aggravating triggers, fpc pain recommendations per primary care provider/pain clinic/patient [...] (200mg) daily with a meal Please see wool puller every 6-12months while on Hydroxychloroquine. Start azathioprine [...] video & audio (virtual) or phone or [id number] patient care, completing clinical documentation, obtaining and/or [...] Workers' Compensation? No Do you need an tray line supervisor? No [facility] MYCHART ZOOM MESSAGE Question 03/16/2024 7:44 [...] of Right Forearm or Lower Left Leg. [facility] PROMIS 10 ADULT SHORT FORM V1.0 GLOBAL [...] my health Strongly Agree documented in this encounterFirelands Regional Medical Center10-26-2024 NoteRiverview Health Institute10-26-2024 Instructions* Patient Instructions* Lynne Ni MD - [...] (200mg) daily with a meal Please see wool puller every 6-12months while on Hydroxychloroquine. azathioprine daily [...] your usual activities immediately. documented in this encounterFirelands Regional Medical Center10-25-2024 Telephone encounter Note * Telephone [...] above. Please process accordingly. Lynne Ni MD [facility]10-25-2024 Miscellaneous Notes* Telephone Encounter - [...] VIDEO SPEC EST 03/18/2024 9:00 AM [facility] Last Ophthalmology Check for Plaquenil [...] Assoc. diagnoses: Pseudomonas infection documented in this encounterFirelands Regional Medical Center10-25-2024 Telephone encounter Note * Telephone [...] Department VIDEO SPEC EST [facility]/18[facility]2024 [facility] Last Ophthalmology Check for Plaquenil [...] months 06/02/24 06/03/23 02/21/24 Auth. provider: Vera aNjera MD Assoc. diagnoses: Megaloblastic anemia due to [...] Alhaji Head DO Assoc. diagnoses: Pseudomonas infection [facility]10-24-2024 History of Present illness Narrative* [...] Ambulatory Problems Diagnosis Date Noted Autoimmune disease ([facility]) 06/01/2023 Fibromyalgia 06/01/2023 Autonomic dysfunction [...] 03/05/2021 Hair loss 03/05/2021 Hyperlipidemia (CMS/[facility]) 05/31/2014 skilled nursing current use of systemic steroids 02/04/2023 Long-term [...] Chronic laryngopharyngitis COVID-19 vaccine administered x 2 ([employer]) Difficulty walking Fatigue Fibromyalgia, primary GERD (gastroesophageal [...] nursing note reviewed. Exam conducted with a liquor commissioner present. Vitals: Estimated body mass index is [...] Disease with Dr. Kelsey and Specialist [facility]. Patient voiced that Dr. Kelsey recommended surgery, but patient feels that maybe excessive. Specialist at [facility] suggested monitoring. Patient has had mammogram. Patient does not put anything on her breast.Ruled out [facility] Breast concerns. Discussed Smoot Oil at night and Vitamin E lotion. Patient voiced that her breast feel brambila and heavier. Discussed growth of breast and proper support. Breastare not hot nor warm to the touch. Patient to obtain bilateral breast ultrasound. Patient to followup with routine annual appointment and as needed. Documented by Alicia Christine LPN on behalf of: DO Mickey Noeally signed by Luan Valdivia DO at 03/20/2024 10:09 AM EDT documented in this encounterCenterpoint Medical [id number] NoteRiverview Health Institute10-16-2024 NoteBELLMERCY [facility] Note Chief Complaint: New patient here to establish care. Ref from Gay Enciso CNP for hypertension. Former [facility] cardiology patient. Had echo a few weeks ago at [facility]. Says her BP is very low [...] past several months. She has seen 2-3 account manager relief in the past. She has undergone a [...] on any stimulants including caffeinated beverages, alcohol, icku-adj-wrxvgqj Sudafed etc. If her symptoms of palpitations persist, particular if she has lightheadedness or dizziness, head upright tilt table test may be reasonable to evaluate for possible dysautonomia's I discussed the side effects and risks of long-term steroid therapy and recommended she discuss with her russian teacher weaning off soon as possible Given her morbid obesity, her current symptoms and comorbidities are likely related to excessive weight: I encouraged physical activity, attempts to lose weigh (more content not included)...[facility] 03-07-2024 NoteRiverview Health Institute10-15-2024 History of Present illness Narrative* Lee Friedman - 03/07/2024 8:35 AM EDT CMN RECEIVED BY [employer] VIA FAX, COMPLETED, AND PLACED IN PROVIDER MAILBOX FOR SIGNATURE Lee Friedman Coordinator III 03.07.2024 DME COMPANY SENDING CMN: [employer] SIGNED AND DATED CMN, FAXED TO DME & CONFIRMATION PAGE RECEIVED: 03.07.2024 documented in this encounterFirelands Regional Medical Center10-01-2024 Telephone encounter Note * Telephone [...] terrified to drive that far to [place] Further reviewed the reasoning behind the visit needing to be in-person and stated that I would have our physics technical officer reach out if she is willingto accept an in-person appt. PT requested that I review with our clinical team if this can be a VV before she schedules. I let her know I will do so and be in touch. She had no further questions at this time. Luda Vargas Genetic Counseling Laboratory Worker Additional: see FYMarshal for documentation of scheduling and cancellation with genetics in 2021 [facility]10-01-2024 Miscellaneous Notes* Telephone Encounter - [...] terrified to drive that far to [place] Further reviewed the reasoning behind the visit needing to be in-person and stated that I would have our physics technical officer reach out if she is willingto accept an in-person appt. PT requested that I review with our clinical team if this can be a VV before she schedules. I let her know I will do so and be in touch. She had no further questions at this time. Luda Vargas Genetic Counseling Laboratory Worker Additional: see FY for documentation of scheduling and cancellation with genetics in 2021 documented in this encounterFirelands Regional Medical Center09-30-2024 Nurse Note* Kenzie Shannon MA - 02/21/2024 11:13 AM EDT Patient Identification confirmed: yes. Injection given and documented on JUL per provider order. Kenzie Shannon MA [facility]09-30-2024 Nurse Note* Kenzie Shannon MA - 02/21/2024 11:13 AM EDT Patient Identification confirmed: yes. Injection given and documented on MAR per provider order. Kenzie Shannon MA documented in this encounterFirelands Regional Medical Center09-27-2024 Telephone encounter Note * Telephone Encounter - Sherrie Jimenes - 02/18/2024 1:26 PM EDT Patient is calling the [place] office requesting Dr. Ni to place a referral to genetics. Please advise. [facility]09-27-2024 Miscellaneous Notes* Telephone Encounter - Sherrie Jimenes - 02/18/2024 1:26 PM EDT Patient is calling the [place] office requesting Dr. Ni to place a referral to genetics. Please advise. documented in this encounterFirelands Regional Medical Center09-24-2024 Telephone encounter Note * Telephone Encounter - Hansa Javed LPN - 02/15/2024 9:49 AM EDT PAP ORDER FAXED TO [facility] WITH DEMOGRAPHICS, OFFICE NOTES WITH CONFIRMATON NOTED. [facility]09-24-2024 Miscellaneous Notes* Telephone Encounter - Hansa Javed LPN - 02/15/2024 9:49 AM EDT PAP ORDER FAXED TO [facility] WITH DEMOGRAPHICS, OFFICE NOTES WITH CONFIRMATON NOTED. documented in this encounterFirelands Regional Medical Center09-23-2024 History of Present illness Narrative* Vale (Emergency Service Restorer), Luda - 02/14/2024 2:32 PM EDT [facility] [...] been reviewed prior to dispensing the medication. Fig Bar Machine Operator Assessment Patient confirmed: Yes Med/dose confirmed: Yes Missed doses: No Estimated days supply on hand: 1 Next cycle/dose due: 02/17/24 Copay amount: 0 Payment confirmed: Yes Delivery method: FedEx Signature required: Waived on patient request Delivery address: [address] [place] [address]. [place], [place] Delivery date: 02/17/24 Questions or concerns [...] facility-administered medications on file prior to visit. [facility] RX SPECIALTY CLINICAL ASSESSMENT - INFLAMMATORY CONDITIONS [...] efficacy and/or no longer tolerated. Luda Vale [facility] [phone] documented in this encounterFirelands Regional Medical Center09-23-2024 History of Present illness Narrative* Elton EpsteinTradeGlobalLuda Benz - 02/14/2024 2:26 PM EDT Benefits investigation was conducted, indicating that a re-authorization is required for Benlysta. PA was initiated and pending review. Plan Name: Keesha ReevesMyMeds Balderrama: [id number] Luda Vale [facility] [phone] documented in this encounterFirelands Regional Medical Center09-23-2024 Instructions* Patient Instructions* Lexus Heck APRN.CNP - [...] treatment, there are resources available at the [facility] such as a nutrition consultation or referral to weight management programs at our [facility] [place]. Please let us know if we can [...] deductible,co-payments, and out of pocket expenses. DME: [facility] [phone] - Remember to clean your mask and equipment regularly, as directed. - Avoid use of ozone jammer hooker, SoClean devices, or UV cleaning devices - [...] the central scheduling system for the [facility] [place] at [phone]. [facility] now offers direct scheduling for patients to schedule appointments. Virtual visits are also available. Call the office at [phone], option #5 for questions. documented in this encounterFirelands Regional Medical Center09-23-2024 History of Present illness Narrative* Lexus Heck APRN.CNP - 02/14/2024 8:00 AM EDT Images from the original note were not included. [facility] Virtual Visit Follow up/ Established patient visit Date of last visit : 07/27/2022 I have communicated my name and active licensure. The patient's identity and physical location wereverified at the time of this visit. Either the patient or their legal self pay representative has been informed of the risks [...] Return Visit in 6 months. Lexus Heck APRN.RAND TACKER Interval history : Here for follow up for sleep apnea management. SLEEP APNEA Sleep apnea type : JOSE RAFAEL Most Recent Apnea-Hypopnea Index (AHI): 5.3 (HSAT scored 4 %) Treatment : PAP therapy DME: Josh [place] fax: [phone] [facility] ph: [phone] PAP History: Current PAP settin-15 cm H2O. [...] are sorted in reverse-chronological order 04/12/2022 07/23/2022 Smiley Sleepiness Scale Score 4 (No clinically significant [...] - Follow up 12 months. Lexus Heck APRN.RAND TACKER documented in this encounterFirelands Regional Medical Center09-18-2024 History of Present illness Narrative* Zita Cuellar, MANAGER RELIABILITY - 02/09/2024 8:00 AM EDT Images from the original note were not included. CHIEF COMPLAINT REASON FOR VISIT : leg pain HPI: Ariadna Haley is a 43 y.o. female who presents for [facility]. She is at home. She consents [...] Chronic laryngopharyngitis COVID-19 vaccine administered x 2 ([employer]) Difficulty walking Fatigue Fibromyalgia, primary GERD (gastroesophageal [...] Depression: Not at risk (12/27/2023) [facility] PHQ-2 PHQ-2 score: 1 REVIEW [...] patient, and coordinating care. documented in this encounterCenterpoint Medical [id number] NoteHNO ID: [id number] Author: ALHAJI HEAD, DO Service: ? Author Type: Physician Type: Progress Notes Filed: 01/27/2024 16:54 Note Text: VIRTUAL VISIT PROGRESS NOTE This is a virtual visit using Cadentom Video Visit. It required patient-provider interaction for the medical decision making as documented below. I have communicated my name and active licensure. The patient's identity and physical location were verified at the time of this visit. Either the patient or their legal self pay representative has been informed of the risks [...] of green drainage. She saw her OB/ executive director of nursing. This was thought to be secondary to [...] SOB/WHEEZING, and NO DYSPHAG (more content not included)...[facility]09-05-2024 History of Present illness Narrative* Alhaji Head DO - 01/27/2024 10:10 AM EDT Images from the original note were not included. VIRTUAL VISIT PROGRESS NOTE This is a virtual visit using Slipstream Zoom Video Visit. It required patient- provider interaction for the medical decision making as documented below. I have communicated my name and active licensure. The patient's identity and physical location wereverified at the time of this visit. Either the patient or their legal self pay representative has been informed of the risks [...] of green drainage. She saw her OB/ executive director of nursing. This was thought to be secondary to [...] thrush Alhaji Head DO documented in this encounterFirelands Regional Medical Center09-03-2024 Nurse Note* Margret Cuenca MA - 01/25/2024 11:30 AM EDT Patient Identification confirmed: yes. Injection given and documented on MAR per provider order. Margret Cuenca MA [facility]09-03-2024 Nurse Note* Margret Cuenca MA - 01/25/2024 11:30 AM EDT Patient Identification confirmed: yes. Injection given and documented on MAR per provider order. Margret Cuenca MA documented in this encounterFirelands Regional Medical Center08-27-2024 History of Present illness Narrative* [...] outcomes. Aidee Quintanilla PharmD Clinical Pharmacist, [employer] [facility] ; Pool: P [facility] Pool #: [id number] Fig Bar Machine Operator Assessment Patient confirmed: Yes Med/dose confirmed: Yes Supplies needed: No supplies needed Missed doses: No Estimated days supply on hand: (At least 1 dose) Next cycle/dose due: 01/20/24 Copay amount: 0 Payment confirmed: Yes Delivery method: FedEx Signature required: Waived on patient request Delivery address: [address] [place], [place] [id number] Delivery date: 01/21/24 Questions or concerns for [...] facility-administered medications on file prior to visit. [facility] RX SPECIALTY CLINICAL ASSESSMENT - INFLAMMATORY CONDITIONS [...] no longer tolerated. Arianne Mckinley CPhT, Inflammatory/Allergy [facility] [phone] documented in this encounterFirelands Regional Medical Center08-21-2024 Telephone encounter Note * Telephone Encounter - Krista Braswell MA - 01/12/2024 10:45 AM EDT Pt has been notified via Quantified Skin. [facility]08-21-2024 Miscellaneous Notes* Telephone Encounter - Krista Fonseca MA - 01/12/2024 10:45 AM EDT Pt has been notified via Quantified Skin. * Telephone Encounter - Lynne Ni MD [...] Assoc. 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 Please process accordingly. Lynne Ni MD [facility]08-21-2024 Telephone encounter Note* Telephone Encounter [...] months 06/02/24 06/03/23 11/24/23 Auth. provider: Vera aNjera MD Assoc. diagnoses: Megaloblastic anemia due to [...] Lynne Ni MD Assoc. 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 [facility]08-08-2024 Miscellaneous Notes* Telephone Encounter - Krista Fonseca MA - 12/30/2023 1:34 PM EDT Spoke to pt aware of results and recommendations. * Telephone Encounter - Lynne Ni MD - 12/30/2023 12:31 PM EDT Please Call patient if MyChart note not read to review results/released to My Chart if tests completed at [facility]: One Borderline inflammatory test, wbc- will monitor [...] vitamin b12 every month documented in this encounterFirelands Regional Medical Center08-08-2024 Telephone encounter Note * Telephone Encounter - Lynne Ni MD - 12/30/2023 12:31 PM EDT Please Call patient if MyChart note not read to review results/released to My Chart if tests completed at [facility]: One Borderline inflammatory test, wbc- will monitor [...] likely reactive, continue vitamin b12 every month [facility]08-05-2024 Telephone encounter Note* Telephone Encounter - Enma Hamm RN - 12/27/2023 12:49 PM EDT Pt informed of MM message and denies any questions, needs or concerns at this time. Appointments verified. Enma Hamm RN [facility]08-05-2024 Miscellaneous Notes* Telephone Encounter - Enma Hamm RN - 12/27/2023 12:49 PM EDT Pt informed of MM message and denies any questions, needs or concerns at this time. Appointments verified. Enma Hamm RN * Telephone Encounter - Neda Hill PA-C - 12/27/2023 12:44 PM EDT Please call and inform the patient that I reviewed her [facility] records and there is no evidence of a blood clot and she does not need to be on blood thinners. Neda Hill PA-C documented in this encounterFirelands Regional Medical Center08-05-2024 Telephone encounter Note * Telephone Encounter - Neda Hill PA-C - 12/27/2023 12:44 PM EDT Please call and inform the patient that I reviewed her [facility] records and there is no evidence of a blood clot and she does not need to be on blood thinners. Neda Hill PA-C [facility] Work Phone: [phone] Nurse Note* Margret Cuenca MA - 12/27/2023 11:44 AM EDT Patient Identification confirmed: yes. Injection given and documented on MAR per provider order. Margret Cuenca MA [facility]08-05-2024 Nurse Note* Margret Cuenca MA - 12/27/2023 11:44 AM EDT Patient Identification confirmed: yes. Injection given and documented on MAR per provider order. Margret Cuenca MA documented in this encounterFirelands Regional Medical Center08-05-2024 History of Present illness Narrative* Neda Hill PA-C - 12/27/2023 11:30 AM EDT Images from the original note were not included. NAME: TeraAriadna [facility] NO.: [id number] DATE OF SERVICE: December 27, 2023 (Liz) [...] labs 1 week before. Request records from [facility] from PE/elevated d-dimer Frequent infections and [...] injections. Shefollows with multiple doctors including and focuser, russian teacher, photoflash powder mixer and PCP. She has been told they [...] which included preparing to see the patient, myba-hq-veot patient care, completing clinical documentation, obtaining and/or reviewing separately obtained history, performing a medically appropriate examination, counseling and educating the pat ient/family/caregiver, ordering medications, tests, or procedures, communicating with other HCPs (not separately reported), independently interpreting results (not separately reported), communicatingresults to the patient/family/caregiver, and care coordination (not separately reported). Neda Hill PA-C Hematology and Oncology Services Provided at: [place], [place] CC: Manuel Ferris MD [address] [address] documented in this encounterFirelands Regional Medical Center07-22-2024 History of Present illness Narrative* Elton (Emergency Service Restorer)Luda - 12/13/2023 11:44 AM EDT [facility] [...] laboratory parameters, disease state markers and outcomes. Fig Bar Machine Operator Assessment Patient confirmed: Yes Med/dose confirmed: Yes Missed doses: No Estimated days supply on hand: 1 Next cycle/dose due: 12/16/23 Copay amount: 0 Payment confirmed: Yes Delivery method: FedEx Signature required: Waived on patient request Delivery address: [address] [place] [address] [address] [place], [place] Delivery date: 12/17/23 Questions or concerns for [...] facility-administered medications on file prior to visit. [facility] RX SPECIALTY CLINICAL ASSESSMENT - INFLAMMATORY CONDITIONS V6: Assessment to use: Refill [facility] VACCINE INFORMATION [facility] TREATMENT PLAN INFORMATION Luda Vale CPhT [facility] [phone] documented in this encounterFirelands Regional Medical Center07-08-2024 Nurse Note* Stacy Gutiérrez MA - 11/29/2023 1:47 PM EDT Patient Identification confirmed: yes. Injection given and documented on MAR per provider order. Stacy Gutiérrez MA [facility]07-08-2024 Nurse Note* Stacy Gutiérrez MA - 11/29/2023 1:47 PM EDT Patient Identification confirmed: yes. Injection given and documented on MAR per provider order. Stacy Gutiérrez MA documented in this encounterFirelands Regional Medical Center07-05-2024 Telephone encounter Note * Telephone Encounter - Katherin Schneider RN - 11/26/2023 11:34 AM EDT Please sign pended script Maryam Schneider RN [facility]07-05-2024 Miscellaneous Notes* Telephone Encounter - Katherin Schneider RN - 11/26/2023 11:34 AM EDT Please sign pended script Maryam Schneider RN documented in this encounterFirelands Regional Medical Center06-24-2024 History of Present illness Narrative* [...] laboratory parameters, disease state markers and outcomes. Fig Bar Machine Operator Assessment Patient confirmed: Yes Med/dose confirmed: Yes Missed doses: No Estimated days supply on hand: 1 Next cycle/dose due: 11/18/23 Copay amount: 0 Payment confirmed: Yes Delivery method: FedEx Signature required: Waived on patient request Delivery address: [address] [place] [address] [address] [place], [place] Delivery date: 11/17/23 Questions or concerns for [...] facility-administered medications on file prior to visit. [facility] Visit Assessment - [...] Yes Aidee Quintanilla, PharmD Clinical Pharmacist, [employer] [facility] ; Pool: P [facility] Pool #: [id number] documented in this encounterFirelands Regional Medical Center06-20-2024 Telephone encounter Note * Telephone [...] above. Please process accordingly. Lynne Ni MD [facility]06-20-2024 Miscellaneous Notes* Telephone Encounter - [...] High total serum IgM documented in this encounterFirelands Regional Medical Center06-20-2024 Telephone encounter Note * Telephone [...] deficiency, Elevated sed rate FOLATE SERUM [SQSERFOL] 3/ Every 3 months 06/02/24 06/03/23 08/31/23 [...] vitamin B12 deficiency, High total serum IgM [facility]06-06-2024 Telephone encounter Note* Telephone Encounter - Karina Morales RN - 10/28/2023 1:33 PM EDT Pt read Quantified Skin message. [facility]06-06-2024 Miscellaneous Notes* Telephone Encounter - Karina Morales RN - 10/28/2023 1:33 PM EDT Pt read Quantified Skin message. * Telephone Encounter - Lynne Ni [...] soon! Dr.Tsai Harshal :) documented in this encounterFirelands Regional Medical Center06-06-2024 Telephone encounter Note * Telephone [...] symptoms. Hope you feel better soon! Warm Dr.Tsa ozieli :) [facility]06-05-2024 Nurse Note* Margret Cuenca MA - 10/27/2023 2:43 PM EDT Patient Identification confirmed: yes. Injection given and documented on MAR per provider order. Margret Cuenca MA [facility]06-05-2024 Nurse Note* Margret Cuenca MA - 10/27/2023 2:43 PM EDT Patient Identification confirmed: yes. Injection given and documented on MAR per provider order. Margret Cuenca MA documented in this encounterFirelands Regional Medical Center05-14-2024 History of Present illness Narrative* [...] visit. Either the patient or their legal self pay representative has been informed of the risks and benefits of -- and alternatives to -- treatment through a remote evaluation andconsents to proceed with the evaluation remotely. It required patient-provider interaction for the medical decision making as documented below. Persons Present: self (in home) Provider: (in office) VIRTUAL VISIT Follow up for:osteoarthritis/low vitamin D/b12/ +CHRSITIAN/high esr/+tumid lupus biopsy Today's visit 10/05/23:off benlysta [...] measures, may consider osteoporosis treatment if on fpc steroids/abnormal bmd, take vitamin D script if [...] COVID-19 original vaccine, age 12+ yr, monovalent (Ki[employer] - PURPLE TOP) 09/28/2020 10/19/2020 05/26/2021 COVID-19 vaccine, age 12+ yr, 2022- season (Kiip) 02/23/2023 COVID-19 vaccine, age 12+ yr, bivalent ([employer]ip) 02/08/2022 Pneumovax no Flu shot no Tetanus [...] (33);[place] cbc, cmp, negative hla b27; Outside [place] 06/2021 low vitamin D 16, vitamin b12-307;high [...] (200mg) daily with a meal Please see wool puller every 6-12months while on Hydroxychloroquine. Start azathioprine [...] video & audio (virtual) or phone or mcbs-re-vpml patient care, completing clinical documentation, obtaining and/or [...] Workers' Compensation? No Do you need an tray line supervisor? No [facility] MYCHART ZOOM MESSAGE [...] SLAQ Score (range: 0 - 47) 15 [facility] PROVIDER UNDERSTANDING CURRENT HEALTH RHEUMATOLOGY Question 2023 [...] of Right Forearm or Lower Left Leg. [facility] PROMIS 10 ADULT SHORT FORM V1.0 GLOBAL [...] 3 (WITHIN +/- 5) documented in this encounterFirelands Regional Medical Center05-09-2024 Nurse Note* Renea Schneider MA - 09/30/2023 10:53 AM EDT Patient Identification confirmed: yes. Injection given and documented on JUL per provider order. Renea Schneider MA [facility]05-01-2024 Evaluation note* Author Ketty [facility] Authored September 22, 2023 2:55pm 42-year-old [...] symptoms [facility] Work Phone: 1(226) 892-486504-18-2024 Instructions* Patient Instructions* Vera Najera MD - 09/09/2023 4:47 PM EDT Follow up in 13 Weeks - labs 1 week before. B12 shot every 4 weeks. Continue Folic acid. documented in this encounterFirelands Regional Medical Center04-18-2024 History of Present illness Narrative* Vera Najera MD - 09/09/2023 4:30 PM EDT NAME: Ariadna Haley [facility] NO.: [id number] DATE OF SERVICE: September 09, 2023 ([place]) Some elements in this clinic note that are critical to medical decision making have been carefully reviewed and included from a prior clinic note dated: June 10, 2023 ([place]) Referring Provider: Dr. Manuel Ferris Additional Clinicians involved in Ariadna Haley's care: VIRTUAL VISIT PROGRESS NOTE This is a virtual visit using Electronifie Bass Singer Video Call. It required patient- provider interaction for the medical decision making as documented below. I have communicated my name and active licensure. The patient's identity and physical location wereverified at the time of this visit. Either the patient or their legal self pay representative has been informed of the risks [...] injections. Shefollows with multiple doctors including and focuser, russian teacher, photoflash powder mixer and PCP. She has been told they [...] CPE Hematology and Oncology Services Provided at: [place], [place] CC: Manuel Ferris MD [address] [facility] [address] documented in this encounterFirelands Regional Medical Center04-15-2024 Miscellaneous Notes* Telephone Encounter - Maynor Bryson MA - 09/06/2023 7:21 AM EDT patient has viewed the Quantified Skin message per VeedMe. * Telephone Encounter - Lynne Ni MD - 09/04/2023 6:30 PM EDT Please Call patient if Slipstream note not read to review results/released to [...] accordingly. Lynne Ni MD documented in this [facility]04-09-2024 Nurse Note* Margret Cuenca MA - 08/31/2023 10:35 AM EDT Patient Identification confirmed: yes. Injection given and documented on MAR per provider order. Margret Cuenca MA documented in this [facility]04-01-2024 Nurse Note* Renea Schneider MA - 09/30/2023 10:53 AM EDT Patient Identification confirmed: yes. Injection given and documented on MAR per provider order. Renea Schneider MA documented in this [facility]03-14-2024 Nurse Note* Margret Cuenca - 08/05/2023 11:16 AM EDT Patient Identification confirmed: yes. Injection given and documented on MAR per provider order. Margret Cuenca documented in this [facility]02-20-2024 Nurse Note* Margret Cuenca - 07/13/2023 12:01 PM EST Patient Identification confirmed: yes. Injection given and documented on JUL per provider order. Margret Cuenca documented in this encounterFirelands Regional Medical Center02-20-2024 History of Present illness Narrative* Lois Holm MD - 07/13/2023 9:30 AM EST Cardiology Consultation- New Consult Reason for referral: Palpitations HPI: Ariadna aHley is a 42 y.o. female who is being seen in the office for the first time to assess symptoms of chest tightness and palpitation. She was diagnosed with systemic lupus several years ago and is being cared for at the [facility] utilizing steroids, Plaquenil and injectable medic ation(Benlystal). The patient record indicating having had cardiac catheterization in [place] 3 years ago which was normal. I have the report available for my review. [facility] event monitor [...] lupus being treated by rheumatology at the [facility] on steroids, Plaquenil and monoclonal antibody [...] , Rfl: ergocalciferol (Vitamin D-2) 1.25 MG (07764 UT) capsule, Take 1 capsule (50,000 Units) [...] Attestation By signing my name below, I, [email or web address] , Scribe attest that this documentation has [...] exam, discussion and plan. documented in this encounterMer[facility] Work Phone: 1(872) 151-990902-20-2024 Instructions* Patient Instructions* Lila Tejeda LPN - [...] time of your visit. documented in this encounterMercy Health St. [facility] Work Phone: 1(637) 710-171302-13-2024 History of Present illness Narrative* Kade Richardson [...] , Rfl: ergocalciferol (Vitamin D2) 1.25 MG (50734 UT) capsule, Take 50,000 Units by mouth [...] Chronic laryngopharyngitis COVID-19 vaccine administered x 2 ([employer]) History of removal of cyst 2013 tailbone [...] reflexes: Stu's absent. Ankle clonus absent. Coordination Kubyql-qn-vzie, rapid alternating movements and ygrg-yl-wtpw normal bilaterally without dysmetria. Gait Normal casual, toe, heel and tandem gait. Romberg is absent. Assessment/Plan Diagnoses and all orders for this visit: Autoimmune disease (CMS/[facility]) - Protein electrophoresis, serum; Future [...] Lyrica 100 mg TID. She is on lkfuqugpic60 mg once daily. Increase prednisone 10 mg BID for 10 days. documented in this [facility]01-17-2024 History of Present illness Narrative* Michelle Jasmine, DIGITAL PRODUCT SPECIALIST-RAND TACKER - 06/09/2023 8:30 AM EST Ariadna Haley is a 42 y.o. female that presents to the office today for new patient evaluation asself referral for palpitations and elevated heart rates. She has a PMH of HTN, HLD, tachycardia, anemia, JOSE RAFAEL with CPAP compliance, lupus, autonomic dysfunction, arthritis, chronic back pain. She has undergone cardiac workup in the past in [place] as noted below. She also states that she follows withNeurology for possible POTS syndrome. Admits to daily tobacco use, 1 pack of cigarettes per day. Denies vaping, ETOH, recreational drugs. Admits to drinking approximately 1 pot of coffee per day. Denies daily exercise. 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 Family history negative [...] , Rfl: ergocalciferol (Vitamin D-2) 1.25 MG (55292 UT) capsule, Take 1 capsule (50,000 Units) [...] this document. documented in this [facility] Work Phone: 1(898) 227-971801-03-2024 Instructions* Patient Instructions* Christie Phan MD - 05/26/2023 5:43 PM EST Images from the original note were not included. https://ShopWell/tofu-bolognese/ https://nutritionstudies.org/zkp-ab-tggmofaqr-xbzxsfdc-qr-gwwyz-a-kmpvd-nerf-randee vl-boucg-iuvyyhnvp/ https://www.LOVEThESIGN.[employer]/blog/plantbasedkids https://Skedo.[employer]/nnokh-zbyja-wvbn-for-kids/ https://Takeaway.com.[employer]/ahk-it-ucvuoifqby-yivg-vnfw-on-l-rlmqd-cymix-diet/ WHAT TO EAT? Breakfast: Overnight Oats Base [...] muffin, cooked egg/egg white, tomato, thin slice east timorese cheese Fresh berries, hard boiled egg, whole wheat toast Plain yogurt topped with berries, unsalted nuts, drizzle of honey Whole grain toast/Indonesian muffin topped with mashed avocado and tomatoes Lunch: Dinner leftovers packed in Tupperware, side of fruit Salad mixture topped with a protein (chick breast/tuna/hard boiled egg/beans), dressing and side offruit Dinner - Refer to plate life care planner pictures to help select foods and portion ratios of protein, vegetables/starches. Keep it simple and rotate your favorite meals. Sheet nix meals Soups Grilled protein/vegetables/side of starch (plate life care planner picture) Stir can with protein, mixed vegetables, and riced cauliflower or portion controlled whole grain rice. Make your own bowls - Slovenian/British/ theme [place] with Zoodles (spiralized vegetable noodles). Roasted vegetable wraps Alter traditional recipes to reflect HIGH QUALITY ingredients in the right QUANTITIES. Snacks - portion controlled: Raw veggies (can have with hummus, mashed avocado, salsa). Unsalted nuts Fruit (1 serving). (optional side of peanut butter) Air pop popcorn [place] and low fat east timorese cheese rolled up String cheese Protein balls (mix rolled oats, nut butter, flax seeds, dash almond milk). Beverages: Water Coffee, Hot tea Unsweetened ice tea EATING OUT: Research menu online, include nutritional information. Make your order decision before getting to restaurant. Stick to recommended portions (plate life care planner picture). Ask for substitutions or modifications. [...] baked potato, sprouted grain bread, chick peas https://www.ClickShift.com/article/0844745/vnniiryxrgfaq-omsz-iunz-for-beginners / https://www.ClickShift.com/category/4274/jeeuglzfobwhx-xsmp-dirzeu/ https://www.ClickShift.com/category/4300/uduvlrfznktvo-uzam-yjco-plans/ My current favorite cookbooks are documented in this encounterFirelands Regional Medical Center01-03-2024 History of Present illness Narrative* Christie Phan MD - 05/26/2023 5:00 PM EST Images from the original note were not included. [facility] Follow-Up Appointment [...] the date of the service which included nlfn-cj-imcf patient care, completing clinical documentation, performing a medically appropriate examination, counseling and educating the patient/family/caregiver, and ordering medications, tests, or procedures. Christie Phan MD, MA, [facility] Lifestyle Medicine Specialist documented in this encounterFirelands Regional Medical Center12-04-2023 Miscellaneous Notes* Telephone Encounter - Renate Lawrence MA - 04/26/2023 5:26 PM EST Medication pending with new pharmacy information. documented in this encounterFirelands Regional Medical Center12-04-2023 History of Present illness Narrative* Christie Phan MD - 04/26/2023 4:15 PM EST Images from the original note were not included. [facility] Virtual Follow-Up [...] the date of the service which included kism-hk-ogxi patient care, completing clinical documentation, performing a medically appropriate examination, counseling and educating the patient/family/caregiver, and ordering medications, tests, or procedures. I have communicated my name and active licensure. The patient's identity and physical location wereverified at the time of this visit. Either the patient or their legal self pay representative has been informed of the risks and benefits of -- and alternatives to -- treatment through a remote evaluation andconsents to proceed with the evaluation remotely. Christie Phan MD, MA, [facility] Lifestyle Medicine Specialist documented in this encounterFirelands Regional Medical Center12-04-2023 Nurse Note* Renate Lawrence MA - 04/26/2023 2:46 PM EST Spoke to Ariadna Haley, confirmed patient is registered on Slipstream and is prepared for their appointment. Confirmed the patient has updated medications, allergies, and questionnaires via Slipstream. Informed patient if there is an issue with the connection, provider will send the patient a secure link. If provider is running late, patient should remain connected to the visit. Patient verbalized understanding. documented in this encounterFirelands Regional Medical Center11-30-2023 Miscellaneous Notes* Telephone Encounter - Enma Hamm RN - 04/22/2023 3:48 PM EST Pt called for Iron results; possible need for transfusion. Pt aware no need for iron infusion at this time. Enma Hamm RN documented in this encounterFirelands Regional Medical Center11-24-2023 History of Present illness Narrative* Kenzie Shannon - 04/16/2023 10:55 AM EST Patient Identification confirmed: yes. Injection given and documented on JUL per provider order. Kenzie Shannon documented in this encounterFirelands Regional Medical Center10-27-2023 History of Present illness Narrative* Kenzie Shannon - 03/19/2023 11:06 AM EDT Patient Identification confirmed: yes. Injection given and documented on JUL per provider order. Kenzie Shannon documented in this encounterFirelands Regional Medical Center10-24-2023 History of Present illness Narrative* Marija Ziegler - 03/16/2023 10:13 AM EDT CMN RECEIVED BY [facility] VIA FAX, COMPLETED, AND PLACED IN PROVIDER MAILBOX FOR SIGNATURE On 2022 By Marija Ziegler Cage Shift Manager [employer] SENDING CMN: JOSH SIGNED AND DATED CMN, FAXED TO DME & CONFIRMATION PAGE RECEIVED: 03.24.23 documented in this encounterFirelands Regional Medical Center10-19-2023 History of Present illness Narrative* [...] LPN In Department: RHEUMATOLOGY documented in this encounterFirelands Regional Medical Center10-18-2023 Miscellaneous Notes* Telephone Encounter - Christie Phan MD - 03/10/2023 2:18 PM EDT Spoke with patient. We stopped her trulicity because of side effects. She only took the cymbalta for a week. She will restart and we will see how she is doing in 2 months. Have also ordered insulin labs to check for insulin resistance. documented in this encounterFirelands Regional Medical Center10-09-2023 Miscellaneous Notes* Telephone Encounter - Lynne Ni MD - 03/01/2023 3:27 PM EDT For chart: Eye exam 02/26/23 no ocular complication related to medication. * Telephone Encounter - Beatriz Sanchez LPN - 03/01/2023 2:38 PM EDT [facility] from [facility] Placed on your desk for review. documented in this encounterFirelands Regional Medical Center09-29-2023 Nurse Note* Radha Kebede MA - 02/19/2023 11:48 AM EDT Patient Identification confirmed: yes. Injection given and documented on JUL per provider order. Radha Schofield MA documented in this encounterFirelands Regional Medical Center09-29-2023 Instructions* Patient Instructions* Vera Najera MD - 02/19/2023 11:40 AM EDT B12 shot today and every 4 weeks. Continue Folic acid. Follow up in 8 Weeks - labs 1 week before. documented in this encounterFirelands Regional Medical Center09-29-2023 History of Present illness Narrative* Vera Najera MD - 02/19/2023 11:32 AM EDT Images from the original note were not included. AMBULATORY TELEPHONE VISIT Ariadna Haley has consented to this telephone encounter. Persons Present: Patient and myself Chief Complaint/Reason: Anemia; To review recent blood work. HPI: Total Time Spent: 21 minutes Rebekah Rojas APRN.RAND TACKER NAME: Jose Carlosfrancisco javierAriadna CLINIC NO.: [id number] DATE OF SERVICE: February 19, 2023 ([place]) [...] injections. Shefollows with multiple doctors including and focuser, russian teacher, photoflash powder mixer and PCP. She has been told they [...] which included preparing to see the patient, pxav-rv-zvny patient care, completing clinical documentation, performing a medically appropriate examination, counseling and educating the patient/family/caregiver, ordering medications, tests, or p rocedures, and independently interpreting results (not separately reported). Vera Najera MD, CPE Hematology and Oncology Services Provided at: [place], [place] CC: Manuel Ferris MD [address] [address] documented in this encounterFirelands Regional Medical Center09-26-2023 Miscellaneous Notes* Telephone Encounter - [...] RAYRAY INJECTION TEACHING 03/11/2023 7:30 AM RHEU [facility] VIDEO SPEC EST 08/12/2023 9[facility] Last Ophthalmology Check for Plaquenil (Hydroxychloroquine) [...] diagnoses: Vitamin D deficiency documented in this encounterFirelands Regional Medical Center09-18-2023 Miscellaneous Notes* Telephone Encounter - Mirela Carlos - 02/08/2023 11:12 AM EDT Spoke with patient Will get labs done when she does labs in Dec for Dre/Onc Mailed orders for DXA to pt so she can go to [facility] Pre cert [place] Scheduled Teaching visit [...] density (1st time) patient requests order for [place] Please schedule follow up office visit for [...] accordingly. Lynne Ni MD documented in this encounterFirelands Regional Medical Center09-14-2023 History of Present illness Narrative* Carlene Rendon - 02/04/2023 9:31 AM EDT [facility] received prescription(s) for Benlysta from Dr. Ni. Benefits investigation was conducted, indicating that a prior authorization is required by patients plan with [facility]. Encounter will be updated once prior authorization has been submitted by [facility]. Carlene Rendon CPhT [facility], Inflammatory P: [phone] F: [phone] documented in this encounterFirelands Regional Medical Center09-14-2023 History of Present illness Narrative* [...] visit. Either the patient or their legal self pay representative has been informed of the risks [...] COVID-19 original vaccine, age 12+ yr, monovalent (Kiip - PURPLE TOP) 09/28/2020 10/19/2020 05/26/2021 COVID-19 vaccine, age 12+ yr, bivalent (Kiip) 02/08/2022 Pneumovax no Flu shot no Tetanus [...] a few months) 10/22/22 normal TPMT activity. 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 RECOMMENDATION/PLAN: [facility] [employer] on 02/04/23 DXA-AXIAL SKELETON DXA-FOREARM SKELETON Reviewed [...] (200mg) daily with a meal Please see wool puller every 6-12months while on Hydroxychloroquine. Start azathioprine [...] touching your toes, sit-ups, using row machine fpc pain recommendations per primary care provider/pain clinic [...] video & audio (virtual) or phone or ankv-ly-tonm patient care, completing clinical documentation, obtaining and/or [...] cc Gay Enciso CNP;Dr.Douglas Sai Ferris MD [facility] AMBULATORY VISIT INTAKE QUESTIONNAIRE Question 02/02/2023 [...] Workers' Compensation? No Do you need an tray line supervisor? No [facility] MYCHART ZOOM MESSAGE Question 02/02/2023 10:32 [...] < or = 5) documented in this encounterFirelands Regional Medical Center09-14-2023 Instructions* Patient Instructions* Lynne Ni [...] (200mg) daily with a meal Please see wool puller every 6-12months while on Hydroxychloroquine. azathioprine daily [...] your usual activities immediately. documented in this encounterFirelands Regional Medical Center09-05-2023 Miscellaneous Notes* Telephone Encounter - Maynor Bryson MA - 01/26/2023 7:46 AM EDT patient has viewed the Quantified Skin message per VeedMe. * Telephone Encounter - Lynne Ni MD - 01/24/2023 8:04 PM EDT Please Call patient if Slipstream note not read to review results/released to My Chart if tests completed at [facility]: mildly high normal wbc- will [...] accordingly. Lynne Ni MD documented in this encounterFirelands Regional Medical Center09-01-2023 Nurse Note* Radha Kebede MA - 01/22/2023 12:17 PM EDT Patient Identification confirmed: yes. Injection given and documented on JUL per provider order. Radha Schofield MA documented in this encounterFirelands Regional Medical Center08-22-2023 Miscellaneous Notes* Telephone Encounter - [...] prescription(s) to electronically send to [facility] pharmacy. Milagro Mendiola MA documented in this encounterFirelands Regional Medical Center08-11-2023 History of Present illness Narrative* Misty Nelson MD - 01/01/2023 10:51 AM EDT VIRTUAL VISIT PROGRESS NOTE This is a virtual visit using Slipstream video visit. It required patient-provider interaction for themedical decision making as documented below. I have communicated my name and active licensure. The patient's identity and physical location wereverified at the time of this visit. Either the patient or their legal self pay representative has been informed of the risks [...] otitis or sinusitis No pneumonia She sees russian teacher and was diagnosed with lupus She is on Plaquenil, azathioprine Prednisone 10mg once daily for the past year; every few months she gets treated with higher doses of prednisone for flares of her symptoms The medications seem to help the body aches She saw the career agent Treated with B12 and folic acid We [...] visit. Misty Nelson MD documented in this encounterFirelands Regional Medical Center07-28-2023 Miscellaneous Notes* Telephone Encounter - Rebekah Rojas APRN.CNP - 12/18/2022 10:48 AM EDT Spoke with patient this morning, 12/18/2022. Rebekah Rojas APRN.CNP * Telephone Encounter - Lidia Argueta RN - 12/18/2022 9:31 AM EDT Pt called credit union field examiner service last evening stating she was suppose to have a phone call with Rebekah at 330 and never received a call. Pt is still waiting (536 pm 12/17/22). Please advise Lidia Argueta RN documented in this encounterFirelands Regional Medical Center07-28-2023 History of Present illness Narrative* Rebekah Rojas APRN.RAND TACKER - 12/18/2022 9:07 AM EDT Images from [...] Total Time Spent: 21 minutes Rebekah Rojas APRN.RAND TACKER NAME: Ariadna Haley [facility] NO.: [id number] DATE OF SERVICE: October 22, 2022 ([place]) [...] there. Updated Visit, August 27, 2022: Ariadna Torres hugo returns for follow-up and B12 injection. She has missed a few B12 injections. Shefollows with multiple doctors including and focuser, russian teacher, photoflash powder mixer and PCP. She has been told they [...] which included preparing to see the patient, mvrw-yf-szik patient care, completing clinical documentation, performing a medically appropriate examination, counseling and educating the patient/family/caregiver, ordering medications, tests, or p rocedures, and independently interpreting results (not separately reported). Vera Najera MD, CPE Hematology and Oncology Services Provided at: [facility], [place], [place] CC: Manuel Ferris MD [address] [place] [facility] [address] documented in this encounterFirelands Regional Medical Center07-26-2023 Miscellaneous Notes* Telephone Encounter - Pamella Bettencourt RN - 12/16/2022 1:14 PM EDT Pt notified and verbalizes understanding. Clerical: Please change tomorrow's appointment to a phone visit at the end of Rebekah's day. Preferred number is [phone]. In addition, pt will be in next 12/25/22 @ 1130 for her B12 shot. Please add her to the MA schedule. Thanks! Pamella Bettencourt RN * Telephone Encounter - Rebekah Rojas APRN.CNP - 12/16/2022 12:56 PM EDT That would be okay. Have her added at the end of the day. Thanks, Rebekah Rojas APRN.RAND TACKER * Telephone Encounter - Pamella Bettencourt RN [...] schedule? Pamella Bettencourt RN documented in this encounterFirelands Regional Medical Center07-23-2023 Miscellaneous Notes* Telephone Encounter - Vera Najrea MD - 12/13/2022 8:59 PM EDT No clinical utility or implication for a low anion gap. No other concerning findings. I hope that helps. * Telephone Encounter - Enma Hamm RN - 12/08/2022 1:34 PM EDT Hochy etohart message from pt: Hi, just got some [...] advise Enma Hamm RN documented in this encounterFirelands Regional Medical Center07-04-2023 Miscellaneous Notes* Telephone Encounter - [...] accordingly. Lynne Ni MD documented in this encounterFirelands Regional Medical Center06-29-2023 Nurse Note* Margret Cuenca - 11/19/2022 11:01 AM EDT Patient Identification confirmed: yes. Injection given and documented on JUL per provider order. Margret Cuenca documented in this encounterFirelands Regional Medical Center06-01-2023 Nurse Note* Stacy Gutiérrez Ma - 10/22/2022 11:50 AM EDT Patient Identification confirmed: yes. Injection given and documented on JUL per provider order. Stacy Gutiérrez Ma documented in this [facility]06-01-2023 Instructions* Patient Instructions* Vera Najera MD - 10/22/2022 11:43 AM EDT B12 Shot today and every 4 weeks. Continue Folic acid. Follow up in 8 Weeks - labs 1 week before. documented in this [facility]06-01-2023 History of Present illness Narrative* Vera Najera MD - 10/22/2022 11:35 AM EDT Images from the original note were not included. NAME: Ariadna Haley CLINIC NO.: [id number] DATE OF SERVICE: October 22, 2022 ([place]) Some elements in this clinic note that are critical to medical decision making have been carefully reviewed and included from a prior clinic note dated: August 27, 2022 (Bob) Referring Provider: Dr. Manuel Ferris Additional Clinicians involved in Ariadna De Pazlazarofrancisco javier's care: DIAGNOSIS: Multiple symptoms ASSESSMENT: 42 year [...] injections. Shefollows with multiple doctors including and focuser, russian teacher, photoflash powder mixer and PCP. She has been told they [...] which included preparing to see the patient, ulgf-da-xcym patient care, completing clinical documentation, performing a medically appropriate examination, counseling and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 [address]08-2015 History of Past illness Narrative* Problem Noted Date Resolved Date Obesity (BMI 30-39.9) 05/31/2014 07/06/2016 documented as of this encounter (statuses as of 03/09/2022) [address]08-2015 History of Past illness Narrative* Problem Noted Date Resolved Date Obesity (BMI 30-39.9) 05/31/2014 07/06/2016 documented as of this encounter (statuses as of 03/10/2022) [address]08-2015 History of Past illness Narrative* Problem Noted Date Resolved Date Obesity (BMI 30-39.9) 05/31/2014 07/06/2016 documented as of this encounter (statuses as of 03/10/2022) [address]08-2015 History of Past illness Narrative* Problem Noted Date Resolved Date Obesity (BMI 30-39.9) 05/31/2014 07/06/2016 documented as of this encounter (statuses as of 03/12/2022) [address]08-2015 History of Past illness Narrative* Problem Noted Date Resolved Date Obesity (BMI 30-39.9) 05/31/2014 07/06/2016 documented as of this encounter (statuses as of 03/18/2022) [address]08-2015 History of Past illness Narrative* Problem Noted Date Resolved Date Obesity (BMI 30-39.9) 05/31/2014 07/06/2016 documented as of this encounter (statuses as of 03/22/2022) [address]08-2015 History of Past illness Narrative* Problem Noted Date Resolved Date Obesity (BMI 30-39.9) 05/31/2014 07/06/2016 documented as of this encounter (statuses as of 03/30/2022) [address]08-2015 History of Past illness Narrative* Problem Noted Date Resolved Date Obesity (BMI 30-39.9) 05/31/2014 07/06/2016 documented as of this encounter (statuses as of 03/30/2022) [address]08-2015 History of Past illness Narrative* Problem Noted Date Resolved Date Obesity (BMI 30-39.9) 05/31/2014 07/06/2016 documented as of this encounter (statuses as of 04/03/2022) [address]08-2015 History of Past illness Narrative* Problem Noted Date Resolved Date Obesity (BMI 30-39.9) 05/31/2014 07/06/2016 documented as of this encounter (statuses as of 04/03/2022) [address]08-2015 History of Past illness Narrative* Problem Noted Date Resolved Date Obesity (BMI 30-39.9) 05/31/2014 07/06/2016 documented as of this encounter (statuses as of 04/22/2022) [address]08-2015 History of Past illness Narrative* Problem Noted Date Resolved Date Obesity (BMI 30-39.9) 05/31/2014 07/06/2016 documented as of this encounter (statuses as of 04/24/2022) [address]08-2015 History of Past illness Narrative* Problem Noted Date Resolved Date Obesity (BMI 30-39.9) 05/31/2014 07/06/2016 documented as of this encounter (statuses as of 05/05/2022) [address]08-2015 History of Past illness Narrative* Problem Noted Date Resolved Date Obesity (BMI 30-39.9) 05/31/2014 07/06/2016 documented as of this encounter (statuses as of 05/05/2022) [address]08-2015 History of Past illness Narrative* Problem Noted Date Resolved Date Obesity (BMI 30-39.9) 05/31/2014 07/06/2016 documented as of this encounter (statuses as of 05/05/2022) [address]08-2015 History of Past illness Narrative* Problem Noted Date Resolved Date Obesity (BMI 30-39.9) 05/31/2014 07/06/2016 documented as of this encounter (statuses as of 05/26/2022) [address] History of Past illness Narrative* Problem Noted Date Resolved Date Obesity (BMI 30-39.9) 05/31/2014 07/06/2016 documented as of this encounter (statuses as of 05/27/2022) [address]2015 History of Past illness Narrative* Problem Noted Date Resolved Date Obesity (BMI 30-39.9) 05/31/2014 07/06/2016 documented as of this encounter (statuses as of 07/22/2022) [address]2015 History of Past illness Narrative* Problem Noted Date Resolved Date Obesity (BMI 30-39.9) 05/31/2014 07/06/2016 documented as of this encounter (statuses as of 07/25/2022) [address]2015 History of Past illness Narrative* Problem Noted Date Resolved Date Obesity (BMI 30-39.9) 05/31/2014 07/06/2016 documented as of this encounter (statuses as of 07/27/2022) [address]2015 History of Past illness Narrative* Problem Noted Date Resolved Date Obesity (BMI 30-39.9) 05/31/2014 07/06/2016 documented as of this encounter (statuses as of 07/28/2022) [address]2015 History of Past illness Narrative* Problem Noted Date Resolved Date Obesity (BMI 30-39.9) 05/31/2014 07/06/2016 documented as of this encounter (statuses as of 08/10/2022) [address]2015 History of Past illness Narrative* Problem Noted Date Resolved Date Obesity (BMI 30-39.9) 05/31/2014 07/06/2016 documented as of this encounter (statuses as of 08/18/2022) [address]2015 History of Past illness Narrative* Problem Noted Date Resolved Date Obesity (BMI 30-39.9) 05/31/2014 07/06/2016 documented as of this encounter (statuses as of 08/19/2022) [address]2015 History of Past illness Narrative* Problem Noted Date Resolved Date Obesity (BMI 30-39.9) 05/31/2014 07/06/2016 documented as of this encounter (statuses as of 08/27/2022) [address]2015 History of Past illness Narrative* Problem Noted Date Resolved Date Obesity (BMI 30-39.9) 05/31/2014 07/06/2016 documented as of this encounter (statuses as of 08/29/2022) [address]2015 History of Past illness Narrative* Problem Noted Date Resolved Date Obesity (BMI 30-39.9) 05/31/2014 07/06/2016 documented as of this encounter (statuses as of 08/31/2022) [address]2015 History of Past illness Narrative* Problem Noted Date Resolved Date Obesity (BMI 30-39.9) 05/31/2014 07/06/2016 documented as of this encounter (statuses as of 09/08/2022) [address]2015 History of Past illness Narrative* Problem Noted Date Resolved Date Obesity (BMI 30-39.9) 05/31/2014 07/06/2016 documented as of this encounter (statuses as of 09/08/2022) [address] History of Past illness Narrative* Problem Noted Date Resolved Date Obesity (BMI 30-39.9) 05/31/2014 07/06/2016 documented as of this encounter (statuses as of 09/24/2022) [address]2015 History of Past illness Narrative* Problem Noted Date Resolved Date Obesity (BMI 30-39.9) 05/31/2014 07/06/2016 documented as of this encounter (statuses as of 10/22/2022) [address]2015 History of Past illness Narrative* Problem Noted Date Resolved Date Obesity (BMI 30-39.9) 05/31/2014 07/06/2016 documented as of this encounter (statuses as of 10/25/2022) [address]2015 History of Past illness Narrative* Problem Noted Date Resolved Date Obesity (BMI 30-39.9) 05/31/2014 07/06/2016 documented as of this encounter (statuses as of 11/19/2022) [address]2015 History of Past illness Narrative* Problem Noted Date Resolved Date Obesity (BMI 30-39.9) 05/31/2014 07/06/2016 documented as of this encounter (statuses as of 11/25/2022) [address]2015 History of Past illness Narrative* Problem Noted Date Diagnosed Date Resolved Date Obesity (BMI 30-39.9) 05/31/20142016 documented as of this encounter (statuses as of 12/08/2022) [address] History of Past illness Narrative* Problem Noted Date Diagnosed Date Resolved Date Obesity (BMI 30-39.9) 05/31/20142016 documented as of this encounter (statuses as of 12/18/2022) [address]2015 History of Past illness Narrative* Problem Noted Date Diagnosed Date Resolved Date Obesity (BMI 30-39.9) 05/31/20142016 documented as of this encounter (statuses as of 12/18/2022) [address]2015 History of Past illness Narrative* Problem Noted Date Diagnosed Date Resolved Date Obesity (BMI 30-39.9) 05/31/20142016 documented as of this encounter (statuses as of 12/21/2022) [address]2015 History of Past illness Narrative* Problem Noted Date Diagnosed Date Resolved Date Obesity (BMI 30-39.9) 05/31/20142016 documented as of this encounter (statuses as of 12/22/2022) [address]2015 History of Past illness Narrative* Problem Noted Date Diagnosed Date Resolved Date Obesity (BMI 30-39.9) 05/31/20142016 documented as of this encounter (statuses as of 01/02/2023) [address]2015 History of Past illness Narrative* Problem Noted Date Diagnosed Date Resolved Date Obesity (BMI 30-39.9) 05/31/20142016 documented as of this encounter (statuses as of 01/13/2023) [address]2015 History of Past illness Narrative* Problem Noted Date Diagnosed Date Resolved Date Obesity (BMI 30-39.9) 05/31/20142016 documented as of this encounter (statuses as of 01/22/2023) [address]2015 History of Past illness Narrative* Problem Noted Date Diagnosed Date Resolved Date Obesity (BMI 30-39.9) 05/31/20142016 documented as of this encounter (statuses as of 01/26/2023) [address]2015 History of Past illness Narrative* Problem Noted Date Diagnosed Date Resolved Date Obesity (BMI 30-39.9) 05/31/20142016 documented as of this encounter (statuses as of 02/04/2023) [address] History of Past illness Narrative* Problem Noted Date Diagnosed Date Resolved Date Obesity (BMI 30-39.9) 05/31/20142016 documented as of this encounter (statuses as of 02/04/2023) [address]2015 History of Past illness Narrative* Problem Noted Date Diagnosed Date Resolved Date Obesity (BMI 30-39.9) 05/31/20142016 documented as of this encounter (statuses as of 02/07/2023) [address]2015 History of Past illness Narrative* Problem Noted Date Diagnosed Date Resolved Date Obesity (BMI 30-39.9) 05/31/20142016 documented as of this encounter (statuses as of 02/08/2023) [address]2015 History of Past illness Narrative* Problem Noted Date Diagnosed Date Resolved Date Obesity (BMI 30-39.9) 05/31/20142016 documented as of this encounter (statuses as of 02/16/2023) [address]2015 History of Past illness Narrative* Problem Noted Date Diagnosed Date Resolved Date Obesity (BMI 30-39.9) 05/31/20142016 documented as of this encounter (statuses as of 02/19/2023) [address]2015 History of Past illness Narrative* Problem Noted Date Diagnosed Date Resolved Date Obesity (BMI 30-39.9) 05/31/20142016 documented as of this encounter (statuses as of 02/21/2023) [facility]01-08-2015 History of Past illness Narrative* Problem Noted Date Diagnosed Date Resolved Date Obesity (BMI 30-39.9) 05/31/20142016 documented as of this encounter (statuses as of 03/02/2023) [facility] Diagnosis Other systemic lupus erythematosus [...] and myositis, unspecified [facility] Diagnosis Swelling of lymph nodes- Primary Enlargement of lymph nodes Other systemic lupus erythematosus with other organ involvement (HCC) On prednisone therapy Hair loss Alopecia, unspecified Bilateral sacroiliitis (HCC) Long-term use of Plaquenil 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-term (current) use of other medications [facility] Diagnosis Vitamin B12 deficiency- Primary Other B-complex deficiencies Vitamin D deficiency Unspecified vitamin D deficiency Elevated sed rate Elevated sedimentation rate Elevated C-reactive protein (CRP) [facility] Diagnosis 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 Other vitamin B12 deficiency anemia Somnolence, daytime Hypersomnia, unspecified Snoring Other dyspnea and respiratory abnormality Chronic fatigue and malaise Chronic fatigue syndrome Obesity, unspecified classification, unspecified obesity type, unspecified whether serious comorbidity present [facility] Diagnosis Obesity, Class II, BMI [...] total serum IgM [facility] Raised level of immunoglobulins- Primary Other and unspecified nonspecific immunological findings Wound healing, delayed Open wound(s) (multiple) of unspecified site(s), complicated Current smoker Tobacco use disorder [facility] Diagnosis Family history of genetic disease- Primary Family history of other condition [facility] Diagnosis High total serum IgM- Primary Elevated sed rate Elevated sedimentation rate Somnolence, daytime Hypersomnia, unspecified JOSE RAFAEL (obstructive sleep apnea) Obstructive sleep apnea (adult) (pediatric) [facility] Diagnosis Megaloblastic anemia due to vitamin B12 deficiency- Primary Other vitamin B12 deficiency anemia Elevated sed rate Elevated sedimentation rate [facility] Diagnosis Megaloblastic anemia due to vitamin B12 deficiency- Primary Other vitamin B12 deficiency anemia Elevated sed rate Elevated sedimentation rate High total serum IgM Chronic fatigue and malaise Chronic fatigue syndrome [facility] Diagnosis JOSE RAFAEL (obstructive sleep apnea)- Primary Obstructive sleep apnea (adult) (pediatric) [facility] Diagnosis Other systemic lupus erythematosus [...] Anemia of other chronic disease Encounter for fpc 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-term (current) use of other medications [facility] Diagnosis Megaloblastic anemia due to vitamin B12 deficiency- Primary Other vitamin B12 deficiency anemia Elevated sed rate Elevated sedimentation rate [facility] Diagnosis Megaloblastic anemia due to [...] Elevated sedimentation rate [facility] Diagnosis Other systemic lupus erythematosus with other organ involvement (HCC) 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 term care social worker 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-term (current) use of other medications [facility] Diagnosis Megaloblastic anemia due to vitamin B12 deficiency- Primary Other vitamin B12 deficiency anemia Chronic fatigue and malaise Chronic fatigue syndrome [facility] Diagnosis High total serum IgM- [...] C-reactive protein (CRP) [facility] Diagnosis Other systemic lupus erythematosus [...] Bilateral wrist pain 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, 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 current use of systemic steroids Encounter for [...] status (HCC)- [facility] Diagnosis Megaloblastic anemia due to vitamin B12 deficiency- Primary Other vitamin B12 deficiency anemia Elevated sed rate Elevated sedimentation rate documented in this encounter [facility] note* Diagnosis Megaloblastic anemia due to vitamin B12 deficiency- Primary Other vitamin B12 deficiency anemia Elevated sed rate Elevated sedimentation rate documented in this encounter [facility] note* Diagnosis Obesity, Class III, BMI >= 40- Primary Morbid obesity FUO (fever of unknown origin) Fever, unspecified Other chronic pain documented in this encounter [facility] note* Diagnosis Obesity, Class III, BMI >= 40 Morbid obesity documented in this encounter [facility] note* Diagnosis Obesity, Class III, BMI >= 40- Primary Morbid obesity Other chronic pain documented in this encounter [facility] note* Diagnosis Irregular heart rate- Primary Essential hypertension Unspecified essential hypertension Autonomic dysfunction Obstructive sleep apnea syndrome Obstructive sleep apnea (adult) (pediatric) Primary hypertension Unspecified essential hypertension documented in this encounter [facility] Work Phone: Evaluation note* Diagnosis Autoimmune disease (CMS/HCC)- Primary Autoimmune disease, not elsewhere classified Autonomic dysfunction Lumbosacral radiculopathy Thoracic or lumbosacral neuritis or radiculitis, unspecified Bilateral leg weakness Muscle weakness (generalized) [facility] Diagnosis Shortness of breath- Primary Paroxysmal supraventricular tachycardia PAC (premature atrial contraction) Supraventricular premature beats Current smoker Systemic lupus erythematosus, unspecified SLE type, unspecified organ involvement status (CMS/HCC) Palpitations Obstructive sleep apnea syndrome Obstructive sleep apnea (adult) (pediatric) Morbid obesity (CMS/HCC) Morbid obesity Bilateral lower extremity edema documented in this encounter [facility] Work Phone: Evaluation note* Diagnosis Megaloblastic anemia due to vitamin B12 deficiency- Primary Other vitamin B12 deficiency anemia Elevated sed rate Elevated sedimentation rate documented in this encounter [facility] note* Diagnosis Systemic lupus erythematosus with other organ involvement (HCC)- Primary documented in this encounter [facility] note* Diagnosis Systemic lupus erythematosus with other organ involvement (HCC)- Primary [facility] Diagnosis Megaloblastic anemia due to vitamin B12 deficiency- Primary Other vitamin B12 deficiency anemia Elevated sed rate Elevated sedimentation rate [facility] Diagnosis Other systemic lupus erythematosus with other organ involvement (HCC)- Primary Vitamin D deficiency Unspecified vitamin D deficiency Elevated LFTs Other abnormal blood chemistry Anemia of chronic disease Anemia of other chronic disease Elevated sed rate Elevated sedimentation rate Elevated C-reactive protein (CRP) [facility] Diagnosis Megaloblastic anemia due to vitamin B12 deficiency- Primary Other vitamin B12 deficiency anemia Obstructive sleep apnea syndrome Obstructive sleep apnea (adult) (pediatric) Chronic fatigue and malaise Chronic fatigue syndrome High total serum IgM JOSE RAFAEL (obstructive sleep apnea) Obstructive sleep apnea (adult) (pediatric) Somnolence, daytime Hypersomnia, unspecified [facility] Diagnosis Elevated sed rate- Primary Elevated sedimentation rate Megaloblastic anemia due to vitamin B12 deficiency Other vitamin B12 deficiency anemia [facility] Diagnosis Other systemic lupus erythematosus [...] other medications Long-term use of high-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-term (current) use of steroids 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 Bilateral hand pain Pain in limb History of vitamin D deficiency Personal history of nutritional deficiency [facility] Diagnosis Elevated sed rate- Primary Elevated sedimentation rate Megaloblastic anemia due to vitamin B12 deficiency Other vitamin B12 deficiency anemia [facility] Diagnosis Other systemic lupus erythematosus with other organ involvement (HCC) 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 term care social worker 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 Encounter for long-term (current) use of other medications [facility] Systemic lupus erythematosus with other organ involvement (HCC)- Primary [facility] Diagnosis Vitamin B12 deficiency- Primary Other B-complex deficiencies [facility] Diagnosis Elevated sed rate- Primary Elevated sedimentation rate Megaloblastic anemia due to vitamin B12 deficiency Other vitamin B12 deficiency anemia [facility] Diagnosis Elevated sed rate- Primary Elevated sedimentation rate Megaloblastic anemia due to vitamin B12 deficiency Other vitamin B12 deficiency anemia [facility] Diagnosis Megaloblastic anemia due to vitamin B12 deficiency- Primary Other vitamin B12 deficiency anemia Elevated sed rate Elevated sedimentation rate Obstructive sleep apnea syndrome Obstructive sleep apnea (adult) (pediatric) [facility] Diagnosis Elevated LFTs- Primary Other abnormal blood chemistry Elevated C-reactive protein (CRP) Elevated sed rate Elevated sedimentation rate Vitamin D deficiency Unspecified vitamin D deficiency Screening-pulmonary TB Screening examination for pulmonary tuberculosis [facility] Diagnosis Other systemic lupus erythematosus with other organ involvement (HCC) [facility] Diagnosis Systemic lupus erythematosus with other organ involvement (HCC)- Primary [facility] Diagnosis Elevated sed rate- Primary Elevated sedimentation rate Megaloblastic anemia due to vitamin B12 deficiency Other vitamin B12 deficiency anemia [facility] Diagnosis Pseudomonas infection- Primary Pseudomonas infection in conditions classified elsewhere and of unspecified site Other systemic lupus erythematosus with other organ involvement (HCC) On prednisone therapy Long-term use of Plaquenil Encounter for long-term (current) use of other medications [facility] Diagnosis Onset Date Resolution Status Lupus acute Recurrent Clostridioides difficile diarrhea acute Nipple discharge in female a cute Recurrent Clostridioides difficile diarrhea acute Lumbosacral spondylosis acut e Other chronic pain acute Sacroiliitis acute [facility] Work Phone: Evaluation note* Diagnosis JOSE RAFAEL (obstructive sleep apnea)- Primary Obstructive sleep apnea (adult) (pediatric) Somnolence, daytime Hypersomnia, unspecified [facility] Diagnosis Systemic lupus erythematosus with other organ involvement (HCC)- Primary [facility] Diagnosis Systemic lupus erythematosus with other organ involvement (HCC)- Primary [facility] Diagnosis Onset Date Resolution Status Nipple discharge in female a cute Recurrent Clostridioides difficile diarrhea acute Lumbosacral spondylosis acut e Other chronic pain acute Sacroiliitis acute [facility] Work Phone: Evaluation note* Diagnosis Elevated sed rate- Primary Elevated sedimentation rate Megaloblastic anemia due to vitamin B12 deficiency Other vitamin B12 deficiency anemia [facility] Diagnosis Onset Date Resolution Status Nipple discharge in female a cute Recurrent Clostridioides difficile diarrhea acute Lumbosacral spondylosis acut e Other chronic pain acute Sacroiliitis acute Lumbosacral spondylosis acut e Other chronic pain acute Sacroiliitis acute [facility] Work Phone: Evaluation note* Diagnosis Lumbosacral radiculopathy at L5 Degenerative disc disease, lumbar Cervical radiculopathy at C5 documented in this encounter [facility] note* Diagnosis Onset Date Resolution Status Lumbosacral spondylosis acut e Other chronic pain acute Sacroiliitis acute Lumbosacral spondylosis acut e Other chronic pain acute Sacroiliitis acute [facility] Work Phone: Evaluation note* Diagnosis Other systemic lupus erythematosus with other organ involvement (HCC) [facility] Diagnosis Other systemic lupus erythematosus [...] both feet Long-term use of high-risk medication skilled nursing current use of systemic steroids Encounter for long-term (current) use of steroids Bilateral hand pain Pain in limb Systemic lupus erythematosus, unspecified SLE type, unspecified organ involvement status (HCC) Vitamin B12 deficiency Other B-complex deficiencies Discoid lupus erythematosus Lupus erythematosus [facility] Diagnosis Nipple discharge Other sign and symptom in breast [facility] Diagnosis Elevated sed rate- Primary Elevated sedimentation rate Megaloblastic anemia due to vitamin B12 deficiency Other vitamin B12 deficiency anemia [facility] Diagnosis Abnormal uterine bleeding (AUB) Menorrhagia with regular cycle [facility] Diagnosis Megaloblastic anemia due to vitamin B12 deficiency- Primary Other vitamin B12 deficiency anemia High total serum IgM JOSE RAFAEL (obstructive sleep apnea) Obstructive sleep apnea (adult) (pediatric) Elevated sed rate Elevated sedimentation rate Hypogammaglobulinemia (HCC) Hypogammaglobulinaemia, unspecified Frequent infections [facility] Diagnosis Oral thrush- Primary Candidiasis of mouth [facility] Diagnosis Oral thrush- Primary Candidiasis of mouth [facility] Diagnosis Systemic lupus erythematosus with other organ involvement ([facility])- [facility] Diagnosis LPRD (laryngopharyngeal reflux disease)- Primary Acute laryngitis, without mention of obstruction Acute otalgia, right [facility] Diagnosis Autoimmune disease ([facility]) Autoimmune disease, not elsewhere classified Fibromyalgia Unspecified myalgia and myositis Numbness Disturbance of skin sensation [facility] Diagnosis Lumbosacral radiculopathy at L5- Primary Degenerative disc disease, lumbar Cervical radiculopathy at C5 [facility] Diagnosis Degenerative disc disease, lumbar- Primary Lumbosacral radiculopathy at L5 [facility] Diagnosis Frequent infections- Primary Megaloblastic anemia due to vitamin B12 deficiency Other vitamin B12 deficiency anemia Elevated sed rate Elevated sedimentation rate Hypogammaglobulinemia (HCC) Hypogammaglobulinaemia, unspecified Bilateral leg weakness Other musculoskeletal symptoms referable to limbs Discoid lupus erythematosus Lupus erythematosus [facility] Well woman exam with routine gynecological exam Routine gynecological examination Breast cancer screening by mammogram Breast nodule Other (abnormal) findings on radiological examination of breast [facility] Diagnosis Megaloblastic anemia due to vitamin B12 deficiency- Primary Other vitamin B12 deficiency anemia Hypogammaglobulinemia (HCC) Hypogammaglobulinaemia, unspecified Positive blood cultures Bacteremia Malaise and fatigue Other malaise and fatigue SOB (shortness of breath) Shortness of breath [facility] Diagnosis Elevated sed rate- Primary Elevated sedimentation rate Megaloblastic anemia due to vitamin B12 deficiency Other vitamin B12 deficiency anemia Hypogammaglobulinemia (HCC) Hypogammaglobulinaemia, unspecified Frequent infections Bilateral leg weakness Other musculoskeletal symptoms referable to limbs Discoid lupus erythematosus Lupus erythematosus [facility] Diagnosis Diarrhea, unspecified type- Primary Abdominal pressure Abdominal pain, unspecified site [facility] Diagnosis Other iron deficiency anemia- Primary [facility] Diagnosis Other systemic lupus erythematosus with other organ involvement (HCC) [facility] Diagnosis Systemic lupus erythematosus with other organ involvement (HCC)- Primary [facility] Diagnosis Systemic lupus erythematosus (CMS-HCC)- Primary Cold extremities Pain of lower extremity, unspecified laterality Rheumatoid arthritis, involving unspecified site, unspecified whether rheumatoid factor present ([facility]-HCC) Current smoker 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 [facility] Diagnosis Systemic lupus erythematosus (CMS-HCC)- Primary Cold extremities Pain of lower extremity, unspecified laterality Rheumatoid arthritis, involving unspecified site, unspecified whether rheumatoid factor present (CMS-HCC) Current smoker 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 Peripheral vascular disease, unspecified (CMS-HCC)- Primary Peripheral vascular disease, unspecified Cold extremities Systemic lupus erythematosus (CMS-HCC) [facility] Diagnosis Other systemic lupus erythematosus with other organ involvement (HCC)- Primary Vitamin D deficiency Unspecified vitamin D deficiency Elevated LFTs Other abnormal blood chemistry Anemia of chronic disease Anemia of other chronic disease Elevated sed rate Elevated sedimentation rate Elevated C-reactive protein (CRP) [facility] Diagnosis Onset Date Resolution Status [...] erythematosus Lupus erythematosus [facility] Diagnosis LPRD (laryngopharyngeal reflux disease) Other diseases of larynx Dry mouth Disturbance of salivary secretion Current smoker Tobacco use disorder Abnormal mouth sensation Other and unspecified diseases of the oral soft tissues [facility] Diagnosis Nipple discharge- Primary Other sign and symptom in breast Other systemic lupus erythematosus with other organ involvement (HCC) On prednisone therapy Long-term use of Plaquenil Encounter for long-term (current) use of other medications [facility] Diagnosis Hidradenitis suppurativa- Primary Hidradenitis Other seborrheic dermatitis Lupus erythematosus tumidus (CMS/HCC) Rash and other nonspecific skin eruption Capillary angioma Nevus, non-neoplastic Neoplasm of uncertain behavior of skin [facility] Sinus tachycardia- Primary Other specified cardiac dysrhythmias Shortness of breath Paroxysmal supraventricular tachycardia (CMS-HCC) Paroxysmal supraventricular tachycardia Essential hypertension Unspecified essential hypertension Obstructive sleep apnea syndrome Obstructive sleep apnea (adult) (pediatric) Morbid obesity (Multi) Morbid obesity Current smoker documented in this encounter [facility] Work Phone: Evaluation note* Diagnosis Elevated sed rate- Primary Elevated sedimentation rate Megaloblastic anemia due to vitamin B12 deficiency Other vitamin B12 deficiency anemia Frequent infections Hypogammaglobulinemia (HCC) Hypogammaglobulinaemia, unspecified Bilateral leg weakness Other musculoskeletal symptoms referable to limbs Discoid lupus erythematosus Lupus erythematosus [facility] Diagnosis Systemic lupus erythematosus with other organ involvement (HCC)- Primary [facility] Diagnosis Vitamin B12 deficiency- Primary Other B-complex deficiencies Other iron deficiency anemia Hypogammaglobulinemia (HCC) Hypogammaglobulinaemia, unspecified [facility]* Diagnosis Other systemic lupus erythematosus with other organ involvement (HCC) [facility]* Diagnosis Thyroid nodule (CMS/HCC)- Primary Nontoxic uninodular goiter LPRD (laryngopharyngeal reflux disease) Acute laryngitis, without mention of obstruction [facility] Diagnosis Hypogammaglobulinemia (HCC)- Primary Hypogammaglobulinaemia, unspecified Vitamin B12 deficiency Other B-complex deficiencies Other iron deficiency anemia Megaloblastic anemia due to vitamin B12 deficiency Other vitamin B12 deficiency anemia [facility]* Diagnosis Frequent infections- Primary Hypogammaglobulinemia (HCC) Hypogammaglobulinaemia, unspecified Bilateral leg weakness Other musculoskeletal symptoms referable to limbs Discoid lupus erythematosus Lupus erythematosus Elevated sed rate Elevated sedimentation rate Megaloblastic anemia due to vitamin B12 deficiency Other vitamin B12 deficiency anemia [facility]* Diagnosis Other systemic lupus erythematosus with other organ involvement (HCC)- Primary [facility]* Diagnosis Other systemic lupus erythematosus with other organ involvement (HCC) [facility]* Diagnosis Systemic lupus erythematosus with other organ involvement (HCC)- Primary [facility]* Diagnosis Fibromyalgia- Primary Mylagia and myositis, unspecified Family history of disease of aorta Family history of cancer Family history of unspecified malignant neoplasm [facility]* Diagnosis Frequent infections- Primary Hypogammaglobulinemia [...] vitamin D deficiency [facility]* Diagnosis Other systemic lupus erythematosus with other organ involvement (HCC)- Primary [facility]* Diagnosis Other systemic lupus erythematosus with other organ involvement (HCC)- Primary Elevated LFTs Other abnormal blood chemistry Anemia of chronic disease Anemia of other chronic disease Elevated sed rate Elevated sedimentation rate Elevated C-reactive protein (CRP) Vitamin B12 deficiency Other B-complex deficiencies Screening-pulmonary TB Screening examination for pulmonary tuberculosis Vitamin D deficiency Unspecified vitamin D deficiency [facility] Diagnosis Other systemic lupus [...] both feet Long-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 use of high-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 Encounter for long-term (current) use of steroids Bilateral hand pain Pain in limb Family history of Crohn's disease Family history of other digestive disorders 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 Bilateral wrist pain 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, forearm [facility]* Diagnosis Other systemic lupus erythematosus with other organ involvement (HCC)- Primary [facility]* Diagnosis Generalized articular hypermobility- Primary Other joint derangement, not elsewhere classified, multiple sites Chronic pain syndrome Discoid lupus erythematosus Lupus erythematosus Family history of pneumothorax in son Family history of other condition Family history of cancer Family history of unspecified malignant neoplasm Family history of mild aortic dilation in daughter Family history of other cardiovascular diseases [facility]* Diagnosis Elevated sed rate- Primary Elevated sedimentation rate Megaloblastic anemia due to vitamin B12 deficiency Other vitamin B12 deficiency anemia Frequent infections Hypogammaglobulinemia (HCC) Hypogammaglobulinaemia, unspecified Bilateral leg weakness Other musculoskeletal symptoms referable to limbs Discoid lupus erythematosus Lupus erythematosus [facility]* Diagnosis Other systemic lupus erythematosus with other organ involvement (HCC)- Primary [facility]* Diagnosis Hypogammaglobulinemia (HCC)- Primary Hypogammaglobulinaemia, unspecified [facility]* Diagnosis Hidradenitis suppurativa- Primary Hidradenitis Pain Generalized pain Acne vulgaris Other acne [facility] Diagnosis Hypogammaglobulinemia (HCC)- Primary Hypogammaglobulinaemia, unspecified Vitamin B12 deficiency Other B-complex deficiencies Other iron deficiency anemia Malaise and fatigue Other malaise and fatigue Shortness of breath Other specified disorders of breast Pre-diabetes Other abnormal glucose Gastro-esophageal reflux disease without esophagitis Esophageal reflux [facility] Diagnosis Elevated sed rate- Primary Elevated sedimentation rate Megaloblastic anemia due to vitamin B12 deficiency Other vitamin B12 deficiency anemia Frequent infections Hypogammaglobulinemia (HCC) Hypogammaglobulinaemia, unspecified Bilateral leg weakness Other musculoskeletal symptoms referable to limbs Discoid lupus erythematosus Lupus erythematosus documented [facility]* Diagnosis Other systemic lupus erythematosus with other organ involvement (HCC)- Primary documented [facility]* Diagnosis Other systemic lupus erythematosus with other organ involvement (HCC)- Primary Elevated LFTs Other abnormal blood chemistry Anemia of chronic disease Anemia of other chronic disease Elevated sed rate Elevated sedimentation rate Elevated C-reactive protein (CRP) Vitamin D deficiency Unspecified vitamin D deficiency Vitamin B12 deficiency Other B-complex deficiencies Screening-pulmonary TB Screening examination for pulmonary tuberculosis documented [facility]* Diagnosis Other systemic lupus erythematosus with other organ involvement (HCC)- Primary Elevated LFTs Other abnormal blood chemistry Anemia of chronic disease Anemia of other chronic disease Elevated C-reactive protein (CRP) Elevated sed rate Elevated sedimentation rate Vitamin D deficiency Unspecified vitamin D deficiency [facility]* Diagnosis Frequent infections- Primary Hypogammaglobulinemia (HCC) Hypogammaglobulinaemia, unspecified Bilateral leg weakness Other musculoskeletal symptoms referable to limbs Discoid lupus erythematosus Lupus erythematosus Elevated sed rate Elevated sedimentation rate Megaloblastic anemia due to vitamin B12 deficiency Other vitamin B12 deficiency anemia [facility]* Diagnosis Pilonidal cyst- Primary Hidradenitis suppurativa Hidradenitis [facility] Diagnosis Pilonidal abscess- Primary Pilonidal cyst with abscess Pilonidal cyst [facility] Narrative - Reported* Type Description Date Medical History hyperlipidemia Medical History insulin resistance Medical History CMV Surgical History cyst removal pilonidal Surgical History D&C Hospitalization History Cryptonator Other Hospital Discharge instructionsAmbulatory Orders* Referral to Gastroenterology Location: None [facility] Work Phone: InstructionsNot on filedocumented in this encounter [facility] (narrative)* Diagnostic Procedure Only (Routine) - Pending Review Specialty Diagnoses / Procedures Referred By Contac t Referred To Contact XR IMAGING Diagnoses Steroid-induced osteoporosis Procedures DXA-FOREARM SKELETON DXA BONE DENSITY STUDY /SITES APPENDICLR Lynne Perera MD [address] [facility] [place] [address] [place] [address] Referral ID Status Reason Start Date Expiration Date Visits Requested Visits Authorized [id number] Pending Review Auto-Generat ed Referral 02/04/2023 03/05/2024 1 1 [facility] for referral (narrative)* Consultation (Routine) - Authorized Specialty Diagnoses / Procedures Referred By Contac t Referred To Contact Cardiology Diagnoses Irregular heart rate Essential hypertension Autonomic dysfunction Obstructive sleep apnea syndrome Primary hypertension Procedures Follow Up In Cardiology Michelle Jasmine APRN-RAND TACKER [address] [facility] [address] [place] [address] Aurora Patel MD [address] [address] Referral ID Status Reason Start Date Expiration Date V isits Requested Visits Authorized [id number] Authorized 06/09/2023 06/08/2024 1 1 * Cardiovascular (Routine) - Pending Review Specialty Diagnoses / Procedures Referred By Contac t Referred To Contact Cardiology Diagnoses Irregular heart rate Procedures Holter Or Event Survey Rodman Michelle Jasmine APRN-CNP [address] [facility] [address] [place] [address] Referral ID Status Reason Start Date Expiration Date V isits Requested Visits Authorized Pending Review 06/09/2023 06/08/2024 1 1 * CV Imaging (Routine) - Pending Review Specialty Diagnoses / Procedures Referred By Contac t Referred To Contact Cardiology Diagnoses Irregular heart rate Obstructive sleep apnea syndrome Procedures Transthoracic Echo (TTE) Complete ND ECHO TTHRC R-T 2D W/WOM-MODE COMPL SPEC&COLR D Michelle Jasmine APRN-RAND TACKER [address] [facility] [address] [place] [address] Referral ID Status Reason Start Date Expiration Date Visits Requested Visits Authorized Pending Review Perform Procedure 06/09/2023 06/08/2024 1 1 * Cardiovascular (Routine) - Authorized Specialty Diagnoses / Procedures Referred By Contac t Referred To Contact Diagnoses Irregular heart rate Procedures ECG 12 Lead Michelle Jasmine APRN-TRUE [address] [facility] [address] [place] [address] Referral ID Status Reason Start Date Expiration Date V isits Requested Visits Authorized [id number] Authorized 06/09/2023 06/08/2024 1 1 Electronically signed by Michelle Jasmine [facility] at 06/09/2023 8:28 AM EST [facility] Work Phone: Reason for referral (narrative)* Consultation (Routine) - Pending Review Specialty Diagnoses / Procedures Referred By Contac t Referred To Contact Pain Medicine Diagnoses Lumbosacral radiculopathy at L5 Degenerative disc disease, lumbar Procedures ND OFFICE/OUTPATIENT [facility] 60 MINUTES Kade Richardson MD [address] [address] Adolfo Kang MD [address] [address] Referral ID Status Reason Start Date Expiration Date Visits Requested Visits Authorized [id number] Pending Review Specialty Services Required 01/20/2024 07/18/2024 1 1 [facility] ([facility]arrative)No reason for referral [facility]: [facility] Narr[facility]* [place] Prior Authorization (Routine) - Authorized Specialty Diagnoses / Procedures Referred By Contac t Referred To Contact Diagnoses Frequent infections Hypogammaglobulinemia (HCC) Bilateral leg weakness Discoid lupus erythematosus Procedures GAMMAGARD LIQUID INJECTION Vera Najera MD [address] [place] [address] [place] [address] Phone: tel: fax: Hematology/Oncology [address] [place] [address] [place] [address] Phone: tel: fax: Referral ID Status Reason Start Date Expiration Date V isits Requested Visits Authorized [id number] Authorized 04/03/2024 10/01/2024 7 7 [facility] for visit Narrative* [place] Prior Authorization (Routine) - Authorized Specialty Diagnoses / Procedures Referred By Contac t Referred To Contact Diagnoses Other systemic lupus erythematosus with other organ involvement (HCC) Procedures BELIMUMAB INJECTION Lynne Ni MD [address] [place] [address] Phone: tel: fax: Lynne Ni MD [address] [place] [address] Phone: tel: fax: Referral ID Status Reason Start Date Expiration Date V isits Requested Visits Authorized [id number] Authorized 09/08/2024 03/10/2025 8 8 [facility] for visit Narrative* [place] Prior Authorization (Routine) - Authorized Specialty Diagnoses / Procedures Referred By Contac t Referred To Contact Diagnoses Other iron deficiency anemia Procedures IRON SUCROSE INJECTION PER 1 MG Vaibhav Carvalho APRN.RAND TACKER [address] [place] [address] Phone: tel: fax: Hematology/Oncology [address] [place] [address] [place] [address] Phone: tel: fax: Referral ID Status Reason Start Date Expiration Date V isits Requested Visits Authorized [id number] Authorized 06/16/2024 05/23/2025 99 99 [facility] for visit Narrative* [place] Prior Authorization (Routine) - Authorized Specialty Diagnoses / Procedures Referred By Contac t Referred To Contact Diagnoses Frequent infections Hypogammaglobulinemia (HCC) Bilateral leg weakness Discoid lupus erythematosus Procedures GAMMAGARD LIQUID INJECTION Vera Najera MD [address] [place] [address] Phone: tel: fax: Hematology/Oncology [address] [place] [address] Phone: tel: fax: Referral ID Status Reason Start Date Expiration Date Visits Requested Visits Authorized [id number] Authorized Patient Cleared - Admin/Chairm an/Director advise to proceed or did not respond 10/30/2024 10/30/2025 19 19 [facility] for visit Narrative* [place] Prior Authorization (Routine) - Authorized Specialty Diagnoses / Procedures Referred By Contac t Referred To Contact Diagnoses Frequent infections Hypogammaglobulinemia (HCC) Bilateral leg weakness Discoid lupus erythematosus Procedures GAMMAGARD LIQUID INJECTION Vera Najera MD [address] [place] [address] [place] [address] Phone: tel: fax: Hematology/Oncology [address] [place] [address] [place] [address] Phone: tel: fax: Referral ID Status Reason Start Date Expiration Date Visits Requested Visits Authorized [id number] Authorized Patient Cleared - Admin/Chairm an/Director advise to proceed or did not respond 10/30/2024 10/30/2025 18 18 [facility] for visit Narrative* [place] Prior Authorization (Routine) - Authorized Specialty Diagnoses / Procedures Referred By Contac t Referred To Contact Diagnoses Frequent infections Hypogammaglobulinemia (HCC) Bilateral leg weakness Discoid lupus erythematosus Procedures GAMMAGARD LIQUID INJECTION IMMUNE GLOBULIN INJECTION Vera Najera MD [address] [facility] [place] [address] Phone: tel: fax: Hematology/Oncology [address] [place] [address] Phone: tel: fax: Referral ID Status Reason Start Date Expiration Date Visits Requested Visits Authorized [id number] Authorized Patient Cleared - Admin/Chairm an/Director advise to proceed or did not respond 10/30/2024 10/30/2025 19 19 [facility] Summary Purpose Family History No Family History Records Found Relationship Condition Age at Onset Recorded Date/T michelle father Unknown Malignant neoplasm Unknown Relationship Condition Age at Onset Recorded Date/T michelle father Malignant neoplasm of stomach Unknown Unknown mother Crohn's disease Unknown Advance Directives No Advanced Directives Records FoundDocuments on File Type Date Recorded Patient Director Of Restaurants Expl anation ACP-Advance Directive 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 Latest Code Status on File Code Status Date Activated Date Inactivated Comments Full Code 10/07/2020 8:32 AM Documents on File Type Date Recorded Patient Director Of Restaurants Expl anation Advance Directive(s) 09/13/2015 8:36 AM Advance Directive Response Recorded Date/ Time Advance Directives No September 17 019 2:40pm Advance Directive Response Recorded Date/ Time Advance Directives No September 17 019 1:40pm Reason for Referral Specialty Diagnoses / Procedures Referred By Contac t Referred To Contact Infectious Diseases Diagnoses Positive blood cultures Procedures CONSULT TO INFECTIOUS DISEASES OFFICE/OUTPATIENT [facility] HIGH MDM 60 MINUTES Vaibhav Carvalho APRN.RAND TACKER [address] [place] [address] Referral ID Status Reason Start Date Expiration Date Visits Requested Visits Authorized [id number] Authorized PCP Requested Referral 06/13/2024 06/13/2025 1 1 Specialty Diagnoses / Procedures Referred By Contac t Referred To Contact Diagnoses Paroxysmal supraventricular tachycardia PAC (premature atrial contraction) Procedures ECG 12 Lead Lois Holm MD [address] [facility] [address] [place] [address] Referral ID Status Reason Start Date Expiration Date V isits Requested Visits Authorized [id number] Authorized 07/13/2023 07/12/2024 1 1 Specialty Diagnoses / Procedures Referred By Contac t Referred To Contact Cardiology Diagnoses Shortness of breath Paroxysmal supraventricular tachycardia PAC (premature atrial contraction) Procedures Follow Up In Cardiology Lois Holm MD [address] [place] [address] [address] [address] Lois Holm MD [address] [facility] [address], [address] [address] Referral ID Status Reason Start Date Expiration Date V isits Requested Visits Authorized [id number] Authorized 07/13/2023 07/12/2024 1 1 Specialty Diagnoses / Procedures Referred By Contac t Referred To Contact Diagnoses Obesity, Class III, BMI 40-49.9 (morbid obesity) (HCC) Pre-diabetes Christie Phan MD [address] [place] [address] Referral ID Status Reason Start Date Expiration Date Visits Re quested Visits Authorized [id number] Closed 1 1 Specialty Diagnoses / Procedures Referred By Contac t Referred To Contact Diagnoses Wound healing, delayed Procedures CONSULT TO MEDICAL GENETICS - GENERAL OFFICE/OUTPATIENT [facility] 60-74 MINUTES MEDICAL GENETICS COUNSELING EACH 30 MINUTES Misty Nelson MD [facility] [place] [address] [facility] [place] [address] [place] [id number] Referral ID Status Reason Start Date Expiration Date Visits Requested Visits Authorized [id number] Authorized PCP Requested Referral Auto-Generate d Referral 2 03/10/2023 1 1 Specialty Diagnoses / Procedures Referred By Contac t Referred To Contact Neurology Diagnoses POTS (postural orthostatic tachycardia syndrome) Procedures CONSULT TO NEUROLOGY OFFICE/OUTPATIENT [facility] 60-74 MINUTES Christie Phan MD [address] [id number] Referral ID Status Reason Start Date Expiration Date Visits Requested Visits Authorized [id number] Authorized PCP Requested Referral 2 03/12/2023 1 1 Specialty Diagnoses / Procedures Referred By Contac t Referred To Contact Immunology Diagnoses Raised level of immunoglobulins Procedures CONSULT TO IMMUNOLOGY OFFICE/OUTPATIENT [facility] 60-74 MINUTES Christie Phan MD [address] [place], [place] [id number] Referral ID Status Reason Start Date Expiration Date V isits Requested Visits Authorized [id number] Closed PCP Requested Referral 03/09/2022 03/09/2023 1 1 Specialty Diagnoses / Procedures Referred By Contac t Referred To Contact [facility] [place] Diagnoses Somnolence, daytime Snoring Procedures HOME SLEEP APNEA TEST (HSAT) SLEEP STD AIRFLOW HRT RATE&O2 SAT EFFORT UNATT Christie Phan MD [address] [place], [place] [id number] [facility] [address] [place] [address] Referral ID Status Reason Start Date Expiration Date Visits Requested Visits Authorized [id number] Authorized Auto-Generat ed Referral 2 03/09/2023 1 1 Specialty Diagnoses / Procedures Referred By Contac t Referred To Contact Diagnoses Somnolence, daytime Chronic fatigue and malaise Obesity, unspecified classification, unspecified obesity type, unspecified whether serious comorbidity present Procedures CONSULT TO LIFESTYLE MEDICINE MD OFFICE/OUTPATIENT [facility] 60-74 MINUTES Vera Najera MD [address] [place] [address] [place] [address] Referral ID Status Reason Start Date Expiration Date V isits Requested Visits Authorized [id number] Closed PCP Requested Referral 03/04/2022 03/04/2023 1 1 Specialty Diagnoses / Procedures Referred By Contac t Referred To Contact Diagnoses Somnolence, daytime Snoring Procedures CONSULT TO SLEEP MEDICINE - ADULT OFFICE/OUTPATIENT [facility] 60-74 MINUTES Vera Najera MD [facility] [place] [address] Referral ID Status Reason Start Date Expiration Date Visits Requested Visits Authorized [id number] Authorized PCP Requested Referral 2 03/04/2023 1 [...] 9:23am Unknown February 26, 2025 7: 30pm Chief Complaint Admit Date FOLLOW UP AFTER SELENE LUMBAR MBB November 9:03am nausea/Burning under left rib December 12, 2024 10:42am reshedule procedure January 17, 2025 10 :29am Back Pain January 31, 2025 10:00am 2 week follow up after RFA January 9:23am Unknown February 26, 2025 7: 30pm 8 wk f/u-constipation/dyspepsia/abd. gus n February 28, 2025 1:29pm Additional Source Comments INFORMATION SOURCE (unrecogn ized section and content) DATE CREATED AUTHOR 09/20/2018 [facility] DATE CREATED AUTHOR AUTHOR'S ORGANIZ ATION 12/10/2018 [facility] DATE CREATED AUTHOR AUTHOR'S ORGANIZ ATION 01/13/2019 [facility] DATE CREATED AUTHOR AUTHOR'S ORGANIZ ATION 06/28/2021 [facility] DATE CREATED AUTHOR AUTHOR'S ORGANIZ ATION 10/01/2022 [facility] DATE CREATED AUTHOR AUTHOR'S ORGANIZ ATION 03/10/2024 [facility] DATE CREATED AUTHOR AUTHOR'S ORGANIZ ATION 07/22/2024 [facility] DATE CREATED AUTHOR AUTHOR'S ORGANIZ ATION 07/28/2024 [facility] DATE CREATED AUTHOR AUTHOR'S ORGANIZ ATION 02/26/2025 [facility] DATE CREATED AUTHOR AUTHOR'S ORGANIZ ATION 03/01/2025 [facility] DATE CREATED AUTHOR AUTHOR'S ORGANIZ ATION 03/02/2025 [facility] EPIC Reason for Visit (unrecogniz ed section and content) Reason Comments Infection Follow Up Specialty Diagnoses / Procedures Referred By Contac t Referred To Contact Infectious Diseases Diagnoses Positive blood cultures Procedures CONSULT TO INFECTIOUS DISEASES OFFICE/OUTPATIENT NEW HIGH MDM 60 MINUTES Vaibhav Carvalho APRN.CNP [address] [place] [address] Phone: tel: fax: Referral ID Status Reason Start Date Expiration Date V isits Requested Visits Authorized [id number] Closed PCP Requested Referral 06/13/2024 06/13/2025 1 1 Status Reason Specialty Diagnoses / Procedures Referre d By Contact [facility] Reason Comments Pain ongoing generalized pain. [...] CONSULT TO LIFESTYLE MEDICINE MD OFFICE/OUTPATIENT [facility] 60-74 MINUTES Vera Najera MD [address] [place] [address] Referral ID Status Reason Start Date Expiration Date V isits Requested Visits Authorized [id number] Closed PCP Requested Referral 03/04/2022 03/04/2023 1 1 Reason Comments High Total serum IgM Anemia Reason Comments Consult Specialty Diagnoses / Procedures Referred By Contac t Referred To Contact Immunology Diagnoses Raised level of immunoglobulins Procedures CONSULT TO IMMUNOLOGY OFFICE/OUTPATIENT [facility] 60-74 MINUTES Christie Phan MD [address] [place] [address] Referral ID Status Reason Start Date Expiration Date V isits Requested Visits Authorized [id number] Closed PCP Requested Referral 03/09/2022 03/09/2023 1 1 Reason Comments Pneumovax Reason Comments Refill Request Reason Comments Appointment Operations Dispatcher - Other Reason Comments Future Appointment Scheduling questions /concerns Reason Comments PAP Therapy Follow Up Reason Comments PAP Rx Faxed DME Radhabecky Gabbi Reason Comments Anemia 8 week follow up [...] rate Procedures ECG 12 Lead Michelle Jasmine, DIGITAL PRODUCT SPECIALIST-RAND TACKER [address] [facility] [address] [place] [address] Referral ID Status Reason Start Date Expiration Date V isits Requested Visits Authorized [id number] Authorized 06/09/2023 06/08/2024 1 1 Reason Comments New Patient Visit Leg Swelling, test r esults from [place] Specialty Diagnoses / Procedures Referred By Contac t Referred To Contact Diagnoses Paroxysmal supraventricular tachycardia PAC (premature atrial contraction) Procedures ECG 12 Lead Lois Holm MD [address] [facility] [address] [place] [address] Referral ID Status Reason Start Date Expiration Date V isits Requested Visits Authorized [id number] Authorized 07/13/2023 07/12/2024 1 1 Reason Onset [...] - Follow-up 02/14/20 [employer] Authorization 02/14/2024 KEVLIN zhu Submitted Reason Comments Orders PAP RX. 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 Eds scheduling Reason Comments Med [...] Procedures GAMMAGARD LIQUID INJECTION Vera Najera MD [address] [place] [address] [place] [address] [address] Treat [address] [place] [address] Referral ID Status Reason Start Date Expiration Date V isits Requested Visits Authorized [id number] Authorized 04/03/2024 10/01/2024 7 7 Reason Comments [...] Procedures Referred By Nahid Referred To Contact Vascular Surgery Diagnoses Cold extremities Pain of lower extremity, unspecified laterality Gay Enciso, DIGITAL PRODUCT SPECIALIST-RAND TACKER [address] [facility] [place] [address] Phone: tel:[phone] fax: Hayden Arciniega MD [facility] [address] Phone: tel: fax: Referral ID Status Reason Start Date Expiration Date Visits Requested Visits Authorized [id number] Pending Review Specialty Services Required 03/15/2025 1 [...] Follow Up In Cardiology Lois Holm MD [address] [place] [address] [address], [address] [address] Phone: tel: fax: Lois Holm MD [address] [place] [address] 2, [address] [address] Phone: tel: fax: Referral ID Status Reason Start Date Expiration Date V isits Requested Visits Authorized [id number] Authorized 07/13/2023 07/12/2024 1 1 Reason Comments Med Change Request Reason Comments Patient Question Reason Onset Date Comments SPP Inflammatory Conditions - Medication Refill 08/17/2024 [facility] Reason Onset Date Comments Refill Request 09/01/2024 Reason Comments Thyroid Nodule Follow up ultrasound [facility] 08/24/24 Reason Comments Megaloblastic anemia due [...] Procedures EST PATIENT Self Ny Lance MD [address] [address] Phone: tel: fax: Referral ID Status Reason Start Date Expiration Date V isits Requested Visits Authorized [id number] Pending Review 09/19/2024 12/18/2024 1 1 Reason [...] ago. Specialty Diagnoses / Procedures Referred By Contiliana t Referred To Contact General Surgery Diagnoses Pilonidal cyst Procedures ND OFFICE/OUTPATIENT [facility] 60 MINUTES Bernabe English MD [address] [place] [address] Phone: tel: fax: Terence Blum MD [address] [place] [address] Phone: tel: fax: Referral ID Status Reason Start Date Expiration Date V isits Requested Visits Authorized [id number] Closed Specialty Services Required 02/14/2025 08/13/2025 1 [...] alcohol or drug abuse patient.[facility] CenterIn the event this information is protected by the Federal Confidentiality of Alcohol and Drug Abuse Patient Records regulations: The Federal rules restrict any use of the information to criminally investigate or prosecute any alcohol or drug abuse patient.[facility] CenterIn the event this information is protected by the Federal Confidentiality of Alcohol and Drug Abuse Patient Records regulations: The Federal rules restrict any use of the information to criminally investigate or prosecute any alcohol or drug abuse patient.[facility] CenterIn the event this information is protected by the Federal Confidentiality of Alcohol and Drug Abuse Patient Records regulations: The Federal rules restrict any use of the information to criminally investigate or prosecute any alcohol or drug abuse patient.[facility] CenterIn the event this information is protected by the Federal Confidentiality of Alcohol and Drug Abuse Patient Records regulations: The Federal rules restrict any use of the information to criminally investigate or prosecute any alcohol or drug abuse patient.[facility] CenterIn the event this information is protected by the Federal Confidentiality of Alcohol and Drug Abuse Patient Records regulations: The Federal rules restrict any use of the information to criminally investigate or prosecute any alcohol or drug abuse patient.[facility] CenterIn the event this information is protected by the Federal Confidentiality of Alcohol and Drug Abuse Patient Records regulations: The Federal rules restrict any use of the information to criminally investigate or prosecute any alcohol or drug abuse patient.[facility] CenterIn the event this information is protected by the Federal Confidentiality of Alcohol and Drug Abuse Patient Records regulations: The Federal rules restrict any use of the information to criminally investigate or prosecute any alcohol or drug abuse patient.[facility] CenterIn the event this information is protected by the Federal Confidentiality of Alcohol and Drug Abuse Patient Records regulations: The Federal rules restrict any use of the information to criminally investigate or prosecute any alcohol or drug abuse patient.[facility] CenterIn the event this information is protected by the Federal Confidentiality of Alcohol and Drug Abuse Patient Records regulations: The Federal rules restrict any use of the information to criminally investigate or prosecute any alcohol or drug abuse patient.[facility] CenterIn the event this information is protected by the Federal Confidentiality of Alcohol and Drug Abuse Patient Records regulations: The Federal rules restrict any use of the information to criminally investigate or prosecute any alcohol or drug abuse patient.[facility] CenterIn the event this information is protected by the Federal Confidentiality of Alcohol and Drug Abuse Patient Records regulations: The Federal rules restrict any use of the information to criminally investigate or prosecute any alcohol or drug abuse patient.[facility] CenterIn the event this information is protected by the Federal Confidentiality of Alcohol and Drug Abuse Patient Records regulations: The Federal rules restrict any use of the information to criminally investigate or prosecute any alcohol or drug abuse patient.[facility] CenterIn the event this information is protected by the Federal Confidentiality of Alcohol and Drug Abuse Patient Records regulations: The Federal rules restrict any use of the information to criminally investigate or prosecute any alcohol or drug abuse patient.[facility] CenterIn the event this information is protected by the Federal Confidentiality of Alcohol and Drug Abuse Patient Records regulations: The Federal rules restrict any use of the information to criminally investigate or prosecute any alcohol or drug abuse patient.[facility] CenterIn the event this information is protected by the Federal Confidentiality of Alcohol and Drug Abuse Patient Records regulations: The Federal rules restrict any use of the information to criminally investigate or prosecute any alcohol or drug abuse patient.[facility] CenterIn the event this information is protected by the Federal Confidentiality of Alcohol and Drug Abuse Patient Records regulations: The Federal rules restrict any use of the information to criminally investigate or prosecute any alcohol or drug abuse patient.[facility] CenterIn the event this information is protected by the Federal Confidentiality of Alcohol and Drug Abuse Patient Records regulations: The Federal rules restrict any use of the information to criminally investigate or prosecute any alcohol or drug abuse patient.[facility] CenterIn the event this information is protected by the Federal Confidentiality of Alcohol and Drug Abuse Patient Records regulations: The Federal rules restrict any use of the information to criminally investigate or prosecute any alcohol or drug abuse patient.[facility] CenterIn the event this information is protected by the Federal Confidentiality of Alcohol and Drug Abuse Patient Records regulations: The Federal rules restrict any use of the information to criminally investigate or prosecute any alcohol or drug abuse patient.[facility] CenterIn the event this information is protected by the Federal Confidentiality of Alcohol and Drug Abuse Patient Records regulations: The Federal rules restrict any use of the information to criminally investigate or prosecute any alcohol or drug abuse patient.[facility] CenterIn the event this information is protected by the Federal Confidentiality of Alcohol and Drug Abuse Patient Records regulations: The Federal rules restrict any use of the information to criminally investigate or prosecute any alcohol or drug abuse patient.[facility] CenterIn the event this information is protected by the Federal Confidentiality of Alcohol and Drug Abuse Patient Records regulations: The Federal rules restrict any use of the information to criminally investigate or prosecute any alcohol or drug abuse patient.[facility] CenterIn the event this information is protected by the Federal Confidentiality of Alcohol and Drug Abuse Patient Records regulations: The Federal rules restrict any use of the information to criminally investigate or prosecute any alcohol or drug abuse patient.[facility] CenterIn the event this information is protected by the Federal Confidentiality of Alcohol and Drug Abuse Patient Records regulations: The Federal rules restrict any use of the information to criminally investigate or prosecute any alcohol or drug abuse patient.[facility] CenterIn the event this information is protected by the Federal Confidentiality of Alcohol and Drug Abuse Patient Records regulations: The Federal rules restrict any use of the information to criminally investigate or prosecute any alcohol or drug abuse patient.[facility] CenterIn the event this information is protected by the Federal Confidentiality of Alcohol and Drug Abuse Patient Records regulations: The Federal rules restrict any use of the information to criminally investigate or prosecute any alcohol or drug abuse patient.[facility] CenterIn the event this information is protected by the Federal Confidentiality of Alcohol and Drug Abuse Patient Records regulations: The Federal rules restrict any use of the information to criminally investigate or prosecute any alcohol or drug abuse patient.[facility] CenterIn the event this information is protected by the Federal Confidentiality of Alcohol and Drug Abuse Patient Records regulations: The Federal rules restrict any use of the information to criminally investigate or prosecute any alcohol or drug abuse patient.[facility] CenterIn the event this information is protected by the Federal Confidentiality of Alcohol and Drug Abuse Patient Records regulations: The Federal rules restrict any use of the information to criminally investigate or prosecute any alcohol or drug abuse patient.[facility] CenterIn the event this information is protected by the Federal Confidentiality of Alcohol and Drug Abuse Patient Records regulations: The Federal rules restrict any use of the information to criminally investigate or prosecute any alcohol or drug abuse patient.[facility] CenterIn the event this information is protected by the Federal Confidentiality of Alcohol and Drug Abuse Patient Records regulations: The Federal rules restrict any use of the information to criminally investigate or prosecute any alcohol or drug abuse patient.[facility] CenterIn the event this information is protected by the Federal Confidentiality of Alcohol and Drug Abuse Patient Records regulations: The Federal rules restrict any use of the information to criminally investigate or prosecute any alcohol or drug abuse patient.[facility] CenterIn the event this information is protected by the Federal Confidentiality of Alcohol and Drug Abuse Patient Records regulations: The Federal rules restrict any use of the information to criminally investigate or prosecute any alcohol or drug abuse patient.[facility] CenterIn the event this information is protected by the Federal Confidentiality of Alcohol and Drug Abuse Patient Records regulations: The Federal rules restrict any use of the information to criminally investigate or prosecute any alcohol or drug abuse patient.[facility] CenterIn the event this information is protected by the Federal Confidentiality of Alcohol and Drug Abuse Patient Records regulations: The Federal rules restrict any use of the information to criminally investigate or prosecute any alcohol or drug abuse patient.[facility] CenterIn the event this information is protected by the Federal Confidentiality of Alcohol and Drug Abuse Patient Records regulations: The Federal rules restrict any use of the information to criminally investigate or prosecute any alcohol or drug abuse patient.[facility] CenterIn the event this information is protected by the Federal Confidentiality of Alcohol and Drug Abuse Patient Records regulations: The Federal rules restrict any use of the information to criminally investigate or prosecute any alcohol or drug abuse patient.[facility] CenterIn the event this information is protected by the Federal Confidentiality of Alcohol and Drug Abuse Patient Records regulations: The Federal rules restrict any use of the information to criminally investigate or prosecute any alcohol or drug abuse patient.[facility] CenterIn the event this information is protected by the Federal Confidentiality of Alcohol and Drug Abuse Patient Records regulations: The Federal rules restrict any use of the information to criminally investigate or prosecute any alcohol or drug abuse patient.[facility] CenterIn the event this information is protected by the Federal Confidentiality of Alcohol and Drug Abuse Patient Records regulations: The Federal rules restrict any use of the information to criminally investigate or prosecute any alcohol or drug abuse patient.[facility] CenterIn the event this information is protected by the Federal Confidentiality of Alcohol and Drug Abuse Patient Records regulations: The Federal rules restrict any use of the information to criminally investigate or prosecute any alcohol or drug abuse patient.[facility] CenterIn the event this information is protected by the Federal Confidentiality of Alcohol and Drug Abuse Patient Records regulations: The Federal rules restrict any use of the information to criminally investigate or prosecute any alcohol or drug abuse patient.[facility] CenterIn the event this information is protected by the Federal Confidentiality of Alcohol and Drug Abuse Patient Records regulations: The Federal rules restrict any use of the information to criminally investigate or prosecute any alcohol or drug abuse patient.[facility] CenterIn the event this information is protected by the Federal Confidentiality of Alcohol and Drug Abuse Patient Records regulations: The Federal rules restrict any use of the information to criminally investigate or prosecute any alcohol or drug abuse patient.[facility] CenterIn the event this information is protected by the Federal Confidentiality of Alcohol and Drug Abuse Patient Records regulations: The Federal rules restrict any use of the information to criminally investigate or prosecute any alcohol or drug abuse patient.[facility] CenterIn the event this information is protected by the Federal Confidentiality of Alcohol and Drug Abuse Patient Records regulations: The Federal rules restrict any use of the information to criminally investigate or prosecute any alcohol or drug abuse patient.[facility] CenterIn the event this information is protected by the Federal Confidentiality of Alcohol and Drug Abuse Patient Records regulations: The Federal rules restrict any use of the information to criminally investigate or prosecute any alcohol or drug abuse patient.[facility] CenterIn the event this information is protected by the Federal Confidentiality of Alcohol and Drug Abuse Patient Records regulations: The Federal rules restrict any use of the information to criminally investigate or prosecute any alcohol or drug abuse patient.[facility] CenterIn the event this information is protected by the Federal Confidentiality of Alcohol and Drug Abuse Patient Records regulations: The Federal rules restrict any use of the information to criminally investigate or prosecute any alcohol or drug abuse patient.[facility] CenterIn the event this information is protected by the Federal Confidentiality of Alcohol and Drug Abuse Patient Records regulations: The Federal rules restrict any use of the information to criminally investigate or prosecute any alcohol or drug abuse patient.[facility] CenterIn the event this information is protected by the Federal Confidentiality of Alcohol and Drug Abuse Patient Records regulations: The Federal rules restrict any use of the information to criminally investigate or prosecute any alcohol or drug abuse patient.[facility] CenterIn the event this information is protected by the Federal Confidentiality of Alcohol and Drug Abuse Patient Records regulations: The Federal rules restrict any use of the information to criminally investigate or prosecute any alcohol or drug abuse patient.[facility] CenterIn the event this information is protected by the Federal Confidentiality of Alcohol and Drug Abuse Patient Records regulations: The Federal rules restrict any use of the information to criminally investigate or prosecute any alcohol or drug abuse patient.[facility] CenterIn the event this information is protected by the Federal Confidentiality of Alcohol and Drug Abuse Patient Records regulations: The Federal rules restrict any use of the information to criminally investigate or prosecute any alcohol or drug abuse patient.[facility] CenterIn the event this information is protected by the Federal Confidentiality of Alcohol and Drug Abuse Patient Records regulations: The Federal rules restrict any use of the information to criminally investigate or prosecute any alcohol or drug abuse patient.[facility] CenterIn the event this information is protected by the Federal Confidentiality of Alcohol and Drug Abuse Patient Records regulations: The Federal rules restrict any use of the information to criminally investigate or prosecute any alcohol or drug abuse patient.[facility] CenterIn the event this information is protected by the Federal Confidentiality of Alcohol and Drug Abuse Patient Records regulations: The Federal rules restrict any use of the information to criminally investigate or prosecute any alcohol or drug abuse patient.[facility] CenterIn the event this information is protected by the Federal Confidentiality of Alcohol and Drug Abuse Patient Records regulations: The Federal rules restrict any use of the information to criminally investigate or prosecute any alcohol or drug abuse patient.[facility] CenterIn the event this information is protected by the Federal Confidentiality of Alcohol and Drug Abuse Patient Records regulations: The Federal rules restrict any use of the information to criminally investigate or prosecute any alcohol or drug abuse patient.[facility] CenterIn the event this information is protected by the Federal Confidentiality of Alcohol and Drug Abuse Patient Records regulations: The Federal rules restrict any use of the information to criminally investigate or prosecute any alcohol or drug abuse patient.[facility] CenterIn the event this information is protected by the Federal Confidentiality of Alcohol and Drug Abuse Patient Records regulations: The Federal rules restrict any use of the information to criminally investigate or prosecute any alcohol or drug abuse patient.[facility] CenterIn the event this information is protected by the Federal Confidentiality of Alcohol and Drug Abuse Patient Records regulations: The Federal rules restrict any use of the information to criminally investigate or prosecute any alcohol or drug abuse patient.[facility] CenterIn the event this information is protected by the Federal Confidentiality of Alcohol and Drug Abuse Patient Records regulations: The Federal rules restrict any use of the information to criminally investigate or prosecute any alcohol or drug abuse patient.[facility] CenterIn the event this information is protected by the Federal Confidentiality of Alcohol and Drug Abuse Patient Records regulations: The Federal rules restrict any use of the information to criminally investigate or prosecute any alcohol or drug abuse patient.[facility] CenterIn the event this information is protected by the Federal Confidentiality of Alcohol and Drug Abuse Patient Records regulations: The Federal rules restrict any use of the information to criminally investigate or prosecute any alcohol or drug abuse patient.[facility] CenterIn the event this information is protected by the Federal Confidentiality of Alcohol and Drug Abuse Patient Records regulations: The Federal rules restrict any use of the information to criminally investigate or prosecute any alcohol or drug abuse patient.[facility] CenterIn the event this information is protected by the Federal Confidentiality of Alcohol and Drug Abuse Patient Records regulations: The Federal rules restrict any use of the information to criminally investigate or prosecute any alcohol or drug abuse patient.[facility] CenterIn the event this information is protected by the Federal Confidentiality of Alcohol and Drug Abuse Patient Records regulations: The Federal rules restrict any use of the information to criminally investigate or prosecute any alcohol or drug abuse patient.[facility] CenterIn the event this information is protected by the Federal Confidentiality of Alcohol and Drug Abuse Patient Records regulations: The Federal rules restrict any use of the information to criminally investigate or prosecute any alcohol or drug abuse patient.[facility] CenterIn the event this information is protected by the Federal Confidentiality of Alcohol and Drug Abuse Patient Records regulations: The Federal rules restrict any use of the information to criminally investigate or prosecute any alcohol or drug abuse patient.[facility] CenterIn the event this information is protected by the Federal Confidentiality of Alcohol and Drug Abuse Patient Records regulations: The Federal rules restrict any use of the information to criminally investigate or prosecute any alcohol or drug abuse patient.[facility] CenterIn the event this information is protected by the Federal Confidentiality of Alcohol and Drug Abuse Patient Records regulations: The Federal rules restrict any use of the information to criminally investigate or prosecute any alcohol or drug abuse patient.[facility] CenterIn the event this information is protected by the Federal Confidentiality of Alcohol and Drug Abuse Patient Records regulations: The Federal rules restrict any use of the information to criminally investigate or prosecute any alcohol or drug abuse patient.[facility] CenterIn the event this information is protected by the Federal Confidentiality of Alcohol and Drug Abuse Patient Records regulations: The Federal rules restrict any use of the information to criminally investigate or prosecute any alcohol or drug abuse patient.[facility] CenterIn the event this information is protected by the Federal Confidentiality of Alcohol and Drug Abuse Patient Records regulations: The Federal rules restrict any use of the information to criminally investigate or prosecute any alcohol or drug abuse patient.[facility] CenterIn the event this information is protected by the Federal Confidentiality of Alcohol and Drug Abuse Patient Records regulations: The Federal rules restrict any use of the information to criminally investigate or prosecute any alcohol or drug abuse patient.[facility] CenterIn the event this information is protected by the Federal Confidentiality of Alcohol and Drug Abuse Patient Records regulations: The Federal rules restrict any use of the information to criminally investigate or prosecute any alcohol or drug abuse patient.[facility] CenterIn the event this information is protected by the Federal Confidentiality of Alcohol and Drug Abuse Patient Records regulations: The Federal rules restrict any use of the information to criminally investigate or prosecute any alcohol or drug abuse patient.[facility] CenterIn the event this information is protected by the Federal Confidentiality of Alcohol and Drug Abuse Patient Records regulations: The Federal rules restrict any use of the information to criminally investigate or prosecute any alcohol or drug abuse patient.[facility] CenterIn the event this information is protected by the Federal Confidentiality of Alcohol and Drug Abuse Patient Records regulations: The Federal rules restrict any use of the information to criminally investigate or prosecute any alcohol or drug abuse patient.[facility] CenterIn the event this information is protected by the Federal Confidentiality of Alcohol and Drug Abuse Patient Records regulations: The Federal rules restrict any use of the information to criminally investigate or prosecute any alcohol or drug abuse patient.[facility] CenterIn the event this information is protected by the Federal Confidentiality of Alcohol and Drug Abuse Patient Records regulations: The Federal rules restrict any use of the information to criminally investigate or prosecute any alcohol or drug abuse patient.[facility]In the event this information is protected by the Federal Confidentiality of Alcohol and Drug Abuse Patient Records regulations: The Federal rules restrict any use of the information to criminally investigate or prosecute any alcohol or drug abuse patient.[facility]In the event this information is protected by the Federal Confidentiality of Alcohol and Drug Abuse Patient Records regulations: The Federal rules restrict any use of the information to criminally investigate or prosecute any alcohol or drug abuse patient.[facility] CenterIn the event this information is protected by the Federal Confidentiality of Alcohol and Drug Abuse Patient Records regulations: The Federal rules restrict any use of the information to criminally investigate or prosecute any alcohol or drug abuse patient.[facility]In the event this information is protected by the Federal Confidentiality of Alcohol and Drug Abuse Patient Records regulations: The Federal rules restrict any use of the information to criminally investigate or prosecute any alcohol or drug abuse patient.[facility]In the event this information is protected by the Federal Confidentiality of Alcohol and Drug Abuse Patient Records regulations: The Federal rules restrict any use of the information to criminally investigate or prosecute any alcohol or drug abuse patient.[facility]In the event this information is protected by the Federal Confidentiality of Alcohol and Drug Abuse Patient Records regulations: The Federal rules restrict any use of the information to criminally investigate or prosecute any alcohol or drug abuse patient.[facility]In the event this information is protected by the Federal Confidentiality of Alcohol and Drug Abuse Patient Records regulations: The Federal rules restrict any use of the information to criminally investigate or prosecute any alcohol or drug abuse patient.[facility]In the event this information is protected by the Federal Confidentiality of Alcohol and Drug Abuse Patient Records regulations: The Federal rules restrict any use of the information to criminally investigate or prosecute any alcohol or drug abuse patient.[facility]In the event this information is protected by the Federal Confidentiality of Alcohol and Drug Abuse Patient Records regulations: The Federal rules restrict any use of the information to criminally investigate or prosecute any alcohol or drug abuse patient.[facility]In the event this information is protected by the Federal Confidentiality of Alcohol and Drug Abuse Patient Records regulations: The Federal rules restrict any use of the information to criminally investigate or prosecute any alcohol or drug abuse patient.[facility]In the event this information is protected by the Federal Confidentiality of Alcohol and Drug Abuse Patient Records regulations: The Federal rules restrict any use of the information to criminally investigate or prosecute any alcohol or drug abuse patient.[facility]In the event this information is protected by the Federal Confidentiality of Alcohol and Drug Abuse Patient Records regulations: The Federal rules restrict any use of the information to criminally investigate or prosecute any alcohol or drug abuse patient.[facility]In the event this information is protected by the Federal Confidentiality of Alcohol and Drug Abuse Patient Records regulations: The Federal rules restrict any use of the information to criminally investigate or prosecute any alcohol or drug abuse patient.[facility]In the event this information is protected by the Federal Confidentiality of Alcohol and Drug Abuse Patient Records regulations: The Federal rules restrict any use of the information to criminally investigate or prosecute any alcohol or drug abuse patient.[facility]In the event this information is protected by the Federal Confidentiality of Alcohol and Drug Abuse Patient Records regulations: The Federal rules restrict any use of the information to criminally investigate or prosecute any alcohol or drug abuse patient.[facility]In the event this information is protected by the Federal Confidentiality of Alcohol and Drug Abuse Patient Records regulations: The Federal rules restrict any use of the information to criminally investigate or prosecute any alcohol or drug abuse patient.[facility]In the event this information is protected by the Federal Confidentiality of Alcohol and Drug Abuse Patient Records regulations: The Federal rules restrict any use of the information to criminally investigate or prosecute any alcohol or drug abuse patient.[facility]In the event this information is protected by the Federal Confidentiality of Alcohol and Drug Abuse Patient Records regulations: The Federal rules restrict any use of the information to criminally investigate or prosecute any alcohol or drug abuse patient.[facility]In the event this information is protected by the Federal Confidentiality of Alcohol and Drug Abuse Patient Records regulations: The Federal rules restrict any use of the information to criminally investigate or prosecute any alcohol or drug abuse patient.[facility]In the event this information is protected by the Federal Confidentiality of Alcohol and Drug Abuse Patient Records regulations: The Federal rules restrict any use of the information to criminally investigate or prosecute any alcohol or drug abuse patient.[facility]In the event this information is protected by the Federal Confidentiality of Alcohol and Drug Abuse Patient Records regulations: The Federal rules restrict any use of the information to criminally investigate or prosecute any alcohol or drug abuse patient.[facility]In the event this information is protected by the Federal Confidentiality of Alcohol and Drug Abuse Patient Records regulations: The Federal rules restrict any use of the information to criminally investigate or prosecute any alcohol or drug abuse patient.[facility]In the event this information is protected by the Federal Confidentiality of Alcohol and Drug Abuse Patient Records regulations: The Federal rules restrict any use of the information to criminally investigate or prosecute any alcohol or drug abuse patient.[facility]In the event this information is protected by the Federal Confidentiality of Alcohol and Drug Abuse Patient Records regulations: The Federal rules restrict any use of the information to criminally investigate or prosecute any alcohol or drug abuse patient.[facility]In the event this information is protected by the Federal Confidentiality of Alcohol and Drug Abuse Patient Records regulations: The Federal rules restrict any use of the information to criminally investigate or prosecute any alcohol or drug abuse patient.[facility]In the event this information is protected by the Federal Confidentiality of Alcohol and Drug Abuse Patient Records regulations: The Federal rules restrict any use of the information to criminally investigate or prosecute any alcohol or drug abuse patient.[facility]In the event this information is protected by the Federal Confidentiality of Alcohol and Drug Abuse Patient Records regulations: The Federal rules restrict any use of the information to criminally investigate or prosecute any alcohol or drug abuse patient.[facility]In the event this information is protected by the Federal Confidentiality of Alcohol and Drug Abuse Patient Records regulations: The Federal rules restrict any use of the information to criminally investigate or prosecute any alcohol or drug abuse patient.[facility]In the event this information is protected by the Federal Confidentiality of Alcohol and Drug Abuse Patient Records regulations: The Federal rules restrict any use of the information to criminally investigate or prosecute any alcohol or drug abuse patient.[facility]In the event this information is protected by the Federal Confidentiality of Alcohol and Drug Abuse Patient Records regulations: The Federal rules restrict any use of the information to criminally investigate or prosecute any alcohol or drug abuse patient.[facility]In the event this information is protected by the Federal Confidentiality of Alcohol and Drug Abuse Patient Records regulations: The Federal rules restrict any use of the information to criminally investigate or prosecute any alcohol or drug abuse patient.[facility]In the event this information is protected by the Federal Confidentiality of Alcohol and Drug Abuse Patient Records regulations: The Federal rules restrict any use of the information to criminally investigate or prosecute any alcohol or drug abuse patient.[facility]In the event this information is protected by the Federal Confidentiality of Alcohol and Drug Abuse Patient Records regulations: The Federal rules restrict any use of the information to criminally investigate or prosecute any alcohol or drug abuse patient.[facility]In the event this information is protected by the Federal Confidentiality of Alcohol and Drug Abuse Patient Records regulations: The Federal rules restrict any use of the information to criminally investigate or prosecute any alcohol or drug abuse patient.[facility]In the event this information is protected by the Federal Confidentiality of Alcohol and Drug Abuse Patient Records regulations: The Federal rules restrict any use of the information to criminally investigate or prosecute any alcohol or drug abuse patient.[facility]In the event this information is protected by the Federal Confidentiality of Alcohol and Drug Abuse Patient Records regulations: The Federal rules restrict any use of the information to criminally investigate or prosecute any alcohol or drug abuse patient.[facility]In the event this information is protected by the Federal Confidentiality of Alcohol and Drug Abuse Patient Records regulations: The Federal rules restrict any use of the information to criminally investigate or prosecute any alcohol or drug abuse patient.[facility]In the event this information is protected by the Federal Confidentiality of Alcohol and Drug Abuse Patient Records regulations: The Federal rules restrict any use of the information to criminally investigate or prosecute any alcohol or drug abuse patient.[facility]In the event this information is protected by the Federal Confidentiality of Alcohol and Drug Abuse Patient Records regulations: The Federal rules restrict any use of the information to criminally investigate or prosecute any alcohol or drug abuse patient.[facility]In the event this information is protected by the Federal Confidentiality of Alcohol and Drug Abuse Patient Records regulations: The Federal rules restrict any use of the information to criminally investigate or prosecute any alcohol or drug abuse patient.[facility]In the event this information is protected by the Federal Confidentiality of Alcohol and Drug Abuse Patient Records regulations: The Federal rules restrict any use of the information to criminally investigate or prosecute any alcohol or drug abuse patient.[facility]In the event this information is protected by the Federal Confidentiality of Alcohol and Drug Abuse Patient Records regulations: The Federal rules restrict any use of the information to criminally investigate or prosecute any alcohol or drug abuse patient.[facility]In the event this information is protected by the Federal Confidentiality of Alcohol and Drug Abuse Patient Records regulations: The Federal rules restrict any use of the information to criminally investigate or prosecute any alcohol or drug abuse patient.[facility]In the event this information is protected by the Federal Confidentiality of Alcohol and Drug Abuse Patient Records regulations: The Federal rules restrict any use of the information to criminally investigate or prosecute any alcohol or drug abuse patient.[facility]In the event this information is protected by the Federal Confidentiality of Alcohol and Drug Abuse Patient Records regulations: The Federal rules restrict any use of the information to criminally investigate or prosecute any alcohol or drug abuse patient.[facility]In the event this information is protected by the Federal Confidentiality of Alcohol and Drug Abuse Patient Records regulations: The Federal rules restrict any use of the information to criminally investigate or prosecute any alcohol or drug abuse patient.[facility]In the event this information is protected by the Federal Confidentiality of Alcohol and Drug Abuse Patient Records regulations: The Federal rules restrict any use of the information to criminally investigate or prosecute any alcohol or drug abuse patient.[facility]In the event this information is protected by the Federal Confidentiality of Alcohol and Drug Abuse Patient Records regulations: The Federal rules restrict any use of the information to criminally investigate or prosecute any alcohol or drug abuse patient.[facility]In the event this information is protected by the Federal Confidentiality of Alcohol and Drug Abuse Patient Records regulations: The Federal rules restrict any use of the information to criminally investigate or prosecute any alcohol or drug abuse patient.[facility]In the event this information is protected by the Federal Confidentiality of Alcohol and Drug Abuse Patient Records regulations: The Federal rules restrict any use of the information to criminally investigate or prosecute any alcohol or drug abuse patient.[facility] CenterIn the event this information is protected by the Federal Confidentiality of Alcohol and Drug Abuse Patient Records regulations: The Federal rules restrict any use of the information to criminally investigate or prosecute any alcohol or drug abuse patient.[facility] CenterIn the event this information is protected by the Federal Confidentiality of Alcohol and Drug Abuse Patient Records regulations: The Federal rules restrict any use of the information to criminally investigate or prosecute any alcohol or drug abuse patient.[facility] CenterIn the event this information is protected by the Federal Confidentiality of Alcohol and Drug Abuse Patient Records regulations: The Federal rules restrict any use of the information to criminally investigate or prosecute any alcohol or drug abuse patient.[facility] CenterIn the event this information is protected by the Federal Confidentiality of Alcohol and Drug Abuse Patient Records regulations: The Federal rules restrict any use of the information to criminally investigate or prosecute any alcohol or drug abuse patient.[facility] CenterIn the event this information is protected by the Federal Confidentiality of Alcohol and Drug Abuse Patient Records regulations: The Federal rules restrict any use of the information to criminally investigate or prosecute any alcohol or drug abuse patient.[facility] CenterIn the event this information is protected by the Federal Confidentiality of Alcohol and Drug Abuse Patient Records regulations: The Federal rules restrict any use of the information to criminally investigate or prosecute any alcohol or drug abuse patient.[facility] CenterIn the event this information is protected by the Federal Confidentiality of Alcohol and Drug Abuse Patient Records regulations: The Federal rules restrict any use of the information to criminally investigate or prosecute any alcohol or drug abuse patient.[facility] CenterIn the event this information is protected by the Federal Confidentiality of Alcohol and Drug Abuse Patient Records regulations: The Federal rules restrict any use of the information to criminally investigate or prosecute any alcohol or drug abuse patient.[facility] CenterIn the event this information is protected by the Federal Confidentiality of Alcohol and Drug Abuse Patient Records regulations: The Federal rules restrict any use of the information to criminally investigate or prosecute any alcohol or drug abuse patient.[facility] CenterIn the event this information is protected by the Federal Confidentiality of Alcohol and Drug Abuse Patient Records regulations: The Federal rules restrict any use of the information to criminally investigate or prosecute any alcohol or drug abuse patient.[facility] CenterIn the event this information is protected by the Federal Confidentiality of Alcohol and Drug Abuse Patient Records regulations: The Federal rules restrict any use of the information to criminally investigate or prosecute any alcohol or drug abuse patient.[facility] CenterIn the event this information is protected by the Federal Confidentiality of Alcohol and Drug Abuse Patient Records regulations: The Federal rules restrict any use of the information to criminally investigate or prosecute any alcohol or drug abuse patient.[facility] CenterIn the event this information is protected by the Federal Confidentiality of Alcohol and Drug Abuse Patient Records regulations: The Federal rules restrict any use of the information to criminally investigate or prosecute any alcohol or drug abuse patient.[facility] CenterIn the event this information is protected by the Federal Confidentiality of Alcohol and Drug Abuse Patient Records regulations: The Federal rules restrict any use of the information to criminally investigate or prosecute any alcohol or drug abuse patient.[facility] CenterIn the event this information is protected by the Federal Confidentiality of Alcohol and Drug Abuse Patient Records regulations: The Federal rules restrict any use of the information to criminally investigate or prosecute any alcohol or drug abuse patient.[facility] CenterIn the event this information is protected by the Federal Confidentiality of Alcohol and Drug Abuse Patient Records regulations: The Federal rules restrict any use of the information to criminally investigate or prosecute any alcohol or drug abuse patient.[facility] CenterIn the event this information is protected by the Federal Confidentiality of Alcohol and Drug Abuse Patient Records regulations: The Federal rules restrict any use of the information to criminally investigate or prosecute any alcohol or drug abuse patient.[facility] CenterIn the event this information is protected by the Federal Confidentiality of Alcohol and Drug Abuse Patient Records regulations: The Federal rules restrict any use of the information to criminally investigate or prosecute any alcohol or drug abuse patient.[facility] CenterIn the event this information is protected by the Federal Confidentiality of Alcohol and Drug Abuse Patient Records regulations: The Federal rules restrict any use of the information to criminally investigate or prosecute any alcohol or drug abuse patient.[facility] CenterIn the event this information is protected by the Federal Confidentiality of Alcohol and Drug Abuse Patient Records regulations: The Federal rules restrict any use of the information to criminally investigate or prosecute any alcohol or drug abuse patient.[facility] CenterIn the event this information is protected by the Federal Confidentiality of Alcohol and Drug Abuse Patient Records regulations: The Federal rules restrict any use of the information to criminally investigate or prosecute any alcohol or drug abuse patient.[facility] CenterIn the event this information is protected by the Federal Confidentiality of Alcohol and Drug Abuse Patient Records regulations: The Federal rules restrict any use of the information to criminally investigate or prosecute any alcohol or drug abuse patient.[facility] CenterIn the event this information is protected by the Federal Confidentiality of Alcohol and Drug Abuse Patient Records regulations: The Federal rules restrict any use of the information to criminally investigate or prosecute any alcohol or drug abuse patient.[facility] CenterIn the event this information is protected by the Federal Confidentiality of Alcohol and Drug Abuse Patient Records regulations: The Federal rules restrict any use of the information to criminally investigate or prosecute any alcohol or drug abuse patient.[facility] CenterIn the event this information is protected by the Federal Confidentiality of Alcohol and Drug Abuse Patient Records regulations: The Federal rules restrict any use of the information to criminally investigate or prosecute any alcohol or drug abuse patient.[facility] CenterIn the event this information is protected by the Federal Confidentiality of Alcohol and Drug Abuse Patient Records regulations: The Federal rules restrict any use of the information to criminally investigate or prosecute any alcohol or drug abuse patient.[facility] CenterIn the event this information is protected by the Federal Confidentiality of Alcohol and Drug Abuse Patient Records regulations: The Federal rules restrict any use of the information to criminally investigate or prosecute any alcohol or drug abuse patient.[facility] CenterIn the event this information is protected by the Federal Confidentiality of Alcohol and Drug Abuse Patient Records regulations: The Federal rules restrict any use of the information to criminally investigate or prosecute any alcohol or drug abuse patient.[facility] CenterIn the event this information is protected by the Federal Confidentiality of Alcohol and Drug Abuse Patient Records regulations: The Federal rules restrict any use of the information to criminally investigate or prosecute any alcohol or drug abuse patient.[facility] CenterIn the event this information is protected by the Federal Confidentiality of Alcohol and Drug Abuse Patient Records regulations: The Federal rules restrict any use of the information to criminally investigate or prosecute any alcohol or drug abuse patient.[facility] CenterIn the event this information is protected by the Federal Confidentiality of Alcohol and Drug Abuse Patient Records regulations: The Federal rules restrict any use of the information to criminally investigate or prosecute any alcohol or drug abuse patient.[facility] CenterIn the event this information is protected by the Federal Confidentiality of Alcohol and Drug Abuse Patient Records regulations: The Federal rules restrict any use of the information to criminally investigate or prosecute any alcohol or drug abuse patient.[facility] CenterIn the event this information is protected by the Federal Confidentiality of Alcohol and Drug Abuse Patient Records regulations: The Federal rules restrict any use of the information to criminally investigate or prosecute any alcohol or drug abuse patient.[facility] CenterIn the event this information is protected by the Federal Confidentiality of Alcohol and Drug Abuse Patient Records regulations: The Federal rules restrict any use of the information to criminally investigate or prosecute any alcohol or drug abuse patient.[facility] CenterIn the event this information is protected by the Federal Confidentiality of Alcohol and Drug Abuse Patient Records regulations: The Federal rules restrict any use of the information to criminally investigate or prosecute any alcohol or drug abuse patient.[facility] CenterIn the event this information is protected by the Federal Confidentiality of Alcohol and Drug Abuse Patient Records regulations: The Federal rules restrict any use of the information to criminally investigate or prosecute any alcohol or drug abuse patient.[facility] CenterIn the event this information is protected by the Federal Confidentiality of Alcohol and Drug Abuse Patient Records regulations: The Federal rules restrict any use of the information to criminally investigate or prosecute any alcohol or drug abuse patient.[facility] Care Teams (unrecognized sec tion and content) Team Status: Active Member Role Status Dates Gay Natalie Britt , MANAGER RELIABILITY-C Primary Care Provider Active Team Status: Inactive Member Role Status Mark Enciso MANAGER RELIABILITY-C Primary Care Provider Active Start: November 30, 2024 End: November 30, 2024 Margie Arnett NP Attending Provider Active Start: November 30, 2024 End: November 30, 2024 Team Status: Inactive Member Role Status Dates Gay Enciso MANAGER RELIABILITY-C Primary Care Provider Active Start: December 12, 2024 End: December 12, 2024 Bandar Portillo APRN Attending Provider Active Start: December 12, 2024 End: December 12, 2024 Team Status: Inactive Member Role Status Mark Enciso MANAGER RELIABILITY-C Primary Care Provider Active Start: January 17, 2025 End: January 17, 2025 Margie Arnett NP Attending Provider Active Start: January 17, 2025 End: January 17, 2025 Team Status: Active Member Role Status Mark Enciso MANAGER RELIABILITY-C Primary Care Provider Active Start: January 31, 2025 Adolfo Kang MD Attending Provider Active Sta rt: January 31, 2025 Adolfo Kang MD Other Provider Active Start: January 31, 2025 Team Status: Inactive Member Role Status Mark Enciso MANAGER RELIABILITY-C Primary Care Provider Active Start: February 14, 2025 End: February 14, 2025 Margie Arnett NP Attending Provider Active Start: February 14, 2025 End: February 14, 2025 Team Status: Inactive Member Role Status Mark Ji MD Attending Provider Active St art: February 26, 2025 End: February 26, 2025 Team Status: Inactive Member Role Status Mark Portillo APRN Attending Provider Active Start: February 28, 2025 End: February 28, 2025 Gay Enciso MANAGER RELIABILITY-C Primary Care Provider Active Start: February 28, 2025 End: February 28, 2025 Team Status: Active Member Role Status Mark Enciso MANAGER RELIABILITY-C Primary Care Provider Active Start: November 21, 2024 Adolfo Kang MD Attending Provider Active Sta rt: November 21, 2024 Team Status: Inactive Member Role Status Dates Gay Enciso MANAGER RELIABILITY-C Primary Care Provider Active Start: November 21, 2024 End: November 21, 2024 Adolfo Kang MD Attending Provider Active Sta rt: November 21, 2024 End: November 21, 2024 Team Status: Active Member Role Status Dates WALESKA Galloway Primary Care Provider Active Start: November 22, 2024 Janes Barfield MD Attending Provider Active Start: November 22, 2024 Team Status: Active Member Role Status Mark [...] November 04, 2023 End: November 04, 2023 Division Leader Relationship Specialty Start Date End Date Gay Enciso, DIGITAL PRODUCT SPECIALIST.[employer] [address] [place] [address] PCP - General Family Practice 10/24/21 Division Leader Relationship Specialty Start Date End Date Gay Enciso, DIGITAL PRODUCT SPECIALIST.[employer] [address] [place] [address] PCP - General Family Medicine 10/24/21 Manuel Ferris MD [address] [place] [address] Referring Family Medicine 02/12/22 Division Leader Relationship Specialty Start Date End Date Manuel Ferris MD [address] [place] [address] PCP - General Family Medicine 02/27/22 Manuel Ferris MD [address] [facility] [place] [address] Referring Family Medicine 02/12/22 Division Leader Relationship Specialty Start Date End Date Manuel Ferris MD [address] [facility] [place] [address] PCP - General Family Medicine 02/27/22 Manuel Ferris MD [address] [facility] [place] [address] Referring Family Medicine 02/12/22 Division Leader Relationship Specialty Start Date End Date Manuel Ferris MD [address] [facility] [place] [address] PCP - General Family Medicine 02/27/22 Manuel Ferris MD [address] [facility] [place] [address] Referring Family Medicine 02/12/22 Division Leader Relationship Specialty Start Date End Date Manuel Ferris MD [address] [facility] [place] [address] PCP - General Family Medicine 02/27/22 Manuel Ferris MD [address] [facility] [place] [address] Referring Family Medicine 02/12/22 Division Leader Relationship Specialty Start Date End Date Manuel Ferris MD [address] [facility] [place] [address] PCP - General Family Medicine 02/27/22 Manuel Ferris MD [address] [facility] [place] [address] Referring Family Medicine 02/12/22 Division Leader Relationship Specialty Start Date End Date Manuel Ferris MD [address] [facility] [place] [address] PCP - General Family Medicine 02/27/22 Manuel Ferris MD [address] [facility] [place] [address] Referring Family Medicine 02/12/22 Division Leader Relationship Specialty Start Date End Date Manuel Ferris MD [address] [facility] [place] [address] PCP - General Family Medicine 02/27/22 Manuel Ferris MD [address] [facility] [place] [address] Referring Family Medicine 02/12/22 Division Leader Relationship Specialty Start Date End Date Manuel Ferris MD [address] [facility] [place] [address] PCP - General Family Medicine 02/27/22 Manuel Ferris MD [address] [facility] [place] [address] Referring Family Medicine 02/12/22 Division Leader Relationship Specialty Start Date End Date Manuel Ferris MD [address] [facility] [place] [address] PCP - General Family Medicine 02/27/22 Manuel Ferris MD [address] [facility] [place] [address] Referring Family Medicine 02/12/22 Division Leader Relationship Specialty Start Date End Date aMnuel Ferris MD [address] [facility] [place] [address] PCP - General Family Medicine 02/27/22 Manuel Ferris MD [address] [facility] [place] [address] Referring Family Medicine 02/12/22 Division Leader Relationship Specialty Start Date End Date Manuel Ferris MD [address] [facility] [place] [address] PCP - General Family Medicine 02/27/22 Manuel Ferris MD [address] [facility] [place] [address] Referring Family Medicine 02/12/22 Division Leader Relationship Specialty Start Date End Date Manuel Ferris MD [address] [facility] [place] [address] PCP - General Family Medicine 02/27/22 Manuel Ferris MD [address] [facility] [place] [address] Referring Family Medicine 02/12/22 Division Leader Relationship Specialty Start Date End Date Manuel Ferris MD [address] [facility] [place] [address] PCP - General Family Medicine 02/27/22 Manuel Ferris MD [address] [facility] [place] [address] Referring Family Medicine 02/12/22 Division Leader Relationship Specialty Start Date End Date Manuel Ferris MD [address] [facility] [place] [address] PCP - General Family Medicine 02/27/22 Manuel Ferris MD [address] [facility] [place] [address] Referring Family Medicine 02/12/22 Division Leader Relationship Specialty Start Date End Date Manuel Ferris MD [address] [facility] [place] [address] PCP - General Family Medicine 02/27/22 Manuel Ferris MD [address] [facility] [place] [address] Referring Family Medicine 02/12/22 Division Leader Relationship Specialty Start Date End Date Manuel Ferris MD [address] [facility] [place] [address] PCP - General Family Medicine 02/27/22 Manuel Ferris MD [address] [facility] [place] [address] Referring Family Medicine 02/12/22 Division Leader Relationship Specialty Start Date End Date Manuel Ferris MD [address] [facility] [place] [address] PCP - General Family Medicine 02/27/22 Manuel Ferris MD [address] [facility] [place] [address] Referring Family Medicine 02/12/22 Division Leader Relationship Specialty Start Date End Date Manuel Ferris MD [address] [facility] [place] [address] PCP - General Family Medicine 02/27/22 Manuel Ferris MD [address] [facility] [place] [address] Referring Family Medicine 02/12/22 Division Leader Relationship Specialty Start Date End Date Manuel Ferris MD [address] [facility] [place] [address] PCP - General Family Medicine 02/27/22 Manuel Ferris MD [address] [facility] [place] [address] Referring Family Medicine 02/12/22 Division Leader Relationship Specialty Start Date End Date Manuel Ferris MD [address] [facility] [place] [address] PCP - General Family Medicine 02/27/22 Manuel Ferris MD [address] [facility] [place] [address] Referring Family Medicine 02/12/22 Division Leader Relationship Specialty Start Date End Date Manuel Ferris MD [address] [place] [address] PCP - General Family Medicine 02/27/22 Manuel Ferris MD [address] [place] [address] Referring Family Medicine 02/12/22 Division Leader Relationship Specialty Start Date End Date Manuel Ferris MD PCP - General Family Medicine 02/27/22 Manuel Ferris MD Referring Family Medicine 02/12/22 Division Leader Relationship Specialty Start Date End Date Manuel Ferris MD PCP - General Family Medicine 02/27/22 Manuel Ferris MD Referring Family Medicine 02/12/22 Division Leader Relationship Specialty Start Date End Date Manuel Ferris MD PCP - General Family Medicine 02/27/22 Manuel Ferris MD Referring Family Medicine 02/12/22 Division Leader Relationship Specialty Start Date End Date Manuel Ferris MD PCP - General Family Medicine 02/27/22 Manuel Ferris MD Referring Family Medicine 02/12/22 Division Leader Relationship Specialty Start Date End Date Manuel Ferris MD PCP - General Family Medicine 02/27/22 Manuel Ferris MD Referring Family Medicine 02/12/22 Division Leader Relationship Specialty Start Date End Date Manuel Ferris MD PCP - General Family Medicine 02/27/22 Manuel Ferris MD Referring Family Medicine 02/12/22 Division Leader Relationship Specialty Start Date End Date Manuel Ferris MD PCP - General Family Medicine 02/27/22 Manuel Ferris MD Referring Family Medicine 02/12/22 Division Leader Relationship Specialty Start Date End Date Manuel Ferris MD PCP - General Family Medicine 02/27/22 Manuel Ferris MD Referring Family Medicine 02/12/22 Division Leader Relationship Specialty Start Date End Date Manuel Ferris MD PCP - General Family Medicine 02/27/22 Manuel Ferris MD Referring Family Medicine 02/12/22 Division Leader Relationship Specialty Start Date End Date Manuel Ferris MD PCP - General Family Medicine 02/27/22 Manuel Ferris MD Referring Family Medicine 02/12/22 Division Leader Relationship Specialty Start Date End Date Manuel Ferris MD PCP - General Family Medicine 02/27/22 Manuel Ferris MD Referring Family Medicine 02/12/22 Division Leader Relationship Specialty Start Date End Date Manuel Ferris MD PCP - General Family Medicine 02/27/22 Manuel Ferris MD Referring Family Medicine 02/12/22 Division Leader Relationship Specialty Start Date End Date Manuel Ferris MD PCP - General Family Medicine 02/27/22 Manuel Ferris MD Referring Family Medicine 02/12/22 Division Leader Relationship Specialty Start Date End Date Manuel Ferris MD PCP - General Family Medicine 02/27/22 Manuel Ferris MD Referring Family Medicine 02/12/22 Division Leader Relationship Specialty Start Date End Date Manuel Ferris MD PCP - General Family Medicine 02/27/22 Manuel Ferris MD Referring Family Medicine 02/12/22 Division Leader Relationship Specialty Start Date End Date Manuel Ferris MD PCP - General Family Medicine 02/27/22 Manuel Ferris MD Referring Family Medicine 02/12/22 Division Leader Relationship Specialty Start Date End Date Manuel Ferris MD PCP - General Family Medicine 02/27/22 Manuel Ferris MD Referring Family Medicine 02/12/22 Division Leader Relationship Specialty Start Date End Date Manuel Ferris MD PCP - General Family Medicine 02/27/22 Manuel Ferris MD Referring Family Medicine 02/12/22 Division Leader Relationship Specialty Start Date End Date Manuel Ferris MD PCP - General Family Medicine 02/27/22 Manuel Ferris MD Referring Family Medicine 02/12/22 Division Leader Relationship Specialty Start Date End Date Manuel Ferris MD PCP - General Family Medicine 02/27/22 Manuel Ferris MD Referring Family Medicine 02/12/22 Division Leader Relationship Specialty Start Date End Date Manuel Ferris MD PCP - General Family Medicine 02/27/22 Manuel Ferris MD Referring Family Medicine 02/12/22 Division Leader Relationship Specialty Start Date End Date Manuel Ferris MD PCP - General Family Medicine 02/27/22 Manuel Ferris MD Referring Family Medicine 02/12/22 Division Leader Relationship Specialty Start Date End Date Manuel Ferris MD PCP - General Family Medicine 02/27/22 Manuel Ferris MD Referring Family Medicine 02/12/22 Division Leader Relationship Specialty Start Date End Date Manuel Ferris MD PCP - General Family Medicine 02/27/22 Manuel Ferris MD Referring Family Medicine 02/12/22 Division Leader Relationship Specialty Start Date End Date Manuel Ferris MD PCP - General Family Medicine 02/27/22 Manuel Ferris MD Referring Family Medicine 02/12/22 Division Leader Relationship Specialty Start Date End Date Manuel Ferris MD PCP - General Family Medicine 02/27/22 Manuel Ferris MD Referring Family Medicine 02/12/22 Division Leader Relationship Specialty Start Date End Date Charles Nicole DO [address] [place] [address] PCP - General 10/22/18 Michelle Jasmine, DIGITAL PRODUCT SPECIALIST-[employer]ER [address] [facility] [address] [place] [address] Nurse Practitioner Cardiology 06/08/23 Division Leader Relationship Specialty Start Date End Date Gay Enciso DIGITAL PRODUCT SPECIALIST-R[employer]ER [address] [place] [address] PCP - General 07/13/23 Michelle Jasmine, DIGITAL PRODUCT SPECIALIST-[employer] [address] [facility] [facility] [address] [place] [address] Nurse Practitioner Cardiology 06/08/23 Aurora Patel MD [address] [facility] [address] [place] [address] Consulting Physician Cardiology 06/23/23 Division Leader Relationship Specialty Start Date End Date Manuel Ferris MD PCP - General Family Medicine 02/27/22 Manuel Ferris MD Referring Family Medicine 02/12/22 Division Leader Relationship Specialty Start Date End Date Manuel Ferris MD PCP - General Family Medicine 02/27/22 Manuel Ferris MD Referring Family Medicine 02/12/22 Team Status: Active Member Role Status Dates Lui Salomon MD Primary Care Provider Active Start: July 28, 2023 Virgil Green MD Attending Provider Active S tart: July 28, 2023 Division Leader Relationship Specialty Start Date End Date Manuel Ferris MD PCP - General Family Medicine 02/27/22 Manuel Ferris MD Referring Family Medicine 02/12/22 Team Status: Inactive Member Role Status Dates Lui Salomon MD Primary Care Provider Active Start: December 16, 2023 End: December 16, 2023 Mirela Kelsey MD Attending Provider Active Sta rt: December 16, 2023 End: December 16, 2023 Division Leader Relationship Specialty Start Date End Date Manuel Ferris MD PCP - General Family Medicine 02/27/22 Manuel Ferris MD Referring Family Medicine 02/12/22 Division Leader Relationship Specialty Start Date End Date Manuel Ferris MD PCP - General Family Medicine 02/27/22 Manuel Ferris MD Referring Family Medicine 02/12/22 Division Leader Relationship Specialty Start Date End Date Manuel Ferris MD PCP - General Family Medicine 02/27/22 Manuel Ferris MD Referring Family Medicine 02/12/22 Division Leader Relationship Specialty Start Date End Date Manuel [...] February 28, 2024 End: February 28, 2024 Division Leader Relationship Specialty Start Date End Date Charles Nicole MD [address] [place] [address] PCP - General Family Medicine 02/09/24 Team Status: Inactive Member Role Status Dates WALESKA Galloway Primary Care Provider Active Start: March 16, 2024 End: March 16, 2024 Bandar Portillo APRN Attending Provider Active Start: March 16, 2024 End: March 16, 2024 Division Leader Relationship Specialty Start Date End Date Charles Nicole MD [address] [place] [address] PCP - General Family Medicine 02/09/24 Division Leader Relationship Specialty Start Date End Date Charles Nicole MD [address] [place] [address] PCP - General Family Medicine 02/09/24 Division Leader Relationship Specialty Start Date End Date Charles Nicole MD [address] [place] [address] PCP - General Family Medicine 02/09/24 Division Leader Relationship Specialty Start Date End Date Charles Nicole MD [address] [place] [address] PCP - General Family Medicine 02/09/24 Division Leader Relationship Specialty Start Date End Date Charles Nicole MD [address] [place] [address] PCP - General Family Medicine 02/09/24 Division Leader Relationship Specialty Start Date End Date Manuel Ferris MD PCP - General Family Medicine 02/27/22 Manuel Ferris MD Referring Family Medicine 02/12/22 Division Leader Relationship Specialty Start Date End Date Charles Nicole MD [address] [place] [address] PCP - General Family Medicine 02/09/24 Division Leader Relationship Specialty Start Date End Date Charles Nicole MD [address] [facility] [place] [address] PCP - General Family Medicine 02/09/24 Division Leader Relationship Specialty Start Date End Date Charles Nicole MD [address] [facility] [place] [address] PCP - General Family Medicine 02/09/24 Division Leader Relationship Specialty Start Date End Date Charles Nicole MD [address] [place] [address] PCP - General Family Medicine 02/09/24 Division Leader Relationship Specialty Start Date End Date Manuel Ferris MD PCP - General Family Medicine 02/27/22 Manuel Ferris MD Referring Family Medicine 02/12/22 Division Leader Relationship Specialty Start Date End Date Charles Nicole MD [address] [place] [address] PCP - General Family Medicine 02/09/24 Division Leader Relationship Specialty Start Date End Date Manuel Ferris MD PCP - General Family Medicine 02/27/22 Manuel Ferris MD Referring Family Medicine 02/12/22 Division Leader Relationship Specialty Start Date End Date Manuel Ferris MD PCP - General Family Medicine 02/27/22 Manuel Ferris MD Referring Family Medicine 02/12/22 Division Leader Relationship Specialty Start Date End Date Charles Nicole MD [address] [place] [address] PCP - General Family Medicine 02/09/24 Division Leader Relationship Specialty Start Date End Date Manuel Ferris MD PCP - General Family Medicine 02/27/22 Manuel Ferris MD Referring Family Medicine 02/12/22 Manuel Ferris MD [address] [place] [address] Referring Family Medicine 07/06/24 Team Status: Inactive Member Role Status Dates Gay Enciso NP-C Primary Care Provider Active Start: July 10, 2024 End: July 10, 2024 Adolfo Kang MD Attending Provider Active Sta rt: July 10, 2024 End: July 10, 2024 Division Leader Relationship Specialty Start Date End Date Manuel Ferris MD PCP - General Family Medicine 02/27/22 Manuel Ferris MD Referring Family Medicine 02/12/22 Manuel Ferris MD [address] [place] [address] Referring Family Medicine 07/06/24 Division Leader Relationship Specialty Start Date End Date Manuel Ferris MD PCP - General Family Medicine 02/27/22 Manuel Ferris MD Referring Family Medicine 02/12/22 Manuel Ferris MD [address] [place] [address] Referring Family Medicine 07/06/24 Team Status: Inactive Member Role Status Dates Gay Enciso NP-C Primary Care Provider Active Start: July 19, 2024 End: July 19, 2024 Adolfo Kang MD Attending Provider Active Sta rt: July 19, 2024 End: July 19, 2024 Division Leader Relationship Specialty Start Date End Date Gay Enciso MD [address] [place] [address] Referring Physician Family Medicine 07/18/24 Division Leader Relationship Specialty Start Date End Date Manuel Ferris MD PCP - General Family Medicine 02/27/22 Manuel Ferris MD Referring Family Medicine 02/12/22 Manuel Ferris MD [address] [place] [address] Referring Family Medicine 07/06/24 Division Leader Relationship Specialty Start Date End Date Gay Enciso MD [address] [place], [place] [id number] Referring Physician Family Medicine 07/18/24 Division Leader Relationship Specialty Start Date End Date Gay Enciso APRN-TRUE [address] [place] [id number] PCP - General 07/13/23 Michelle Jasmine APRN-[employer] Nurse Practitioner Cardiology 06/08/23 Aurora Patel MD Consulting Physician Cardiology 06/23/23 Team Status: Active Member Role Status Dates Gay Enciso NP-Ananya Primary Care Provider Active Start: July 19, 2024 Adolfo Kang MD Attending Provider, Other Provider Active Start: July 19, 2024 Team Status: Inactive Member Role Status Dates Gay Natalie Britt , MANAGER RELIABILITY-C Primary Care Provider Active Start: July 31, 2024 End: July 31, 2024 Adolfo Kang MD Attending Provider Active Sta rt: July 31, 2024 End: July 31, 2024 Division Leader Relationship Specialty Start Date End Date Manuel Ferris MD PCP - General Family Medicine 02/27/22 Manuel Ferris MD Referring Family Medicine 02/12/22 Manuel Ferris MD [address] [place] [address] Referring Family Medicine 07/06/24 Division Leader Relationship Specialty Start Date End Date Manuel Ferris MD PCP - General Family Medicine 02/27/22 Manuel Ferris MD Referring Family Medicine 02/12/22 Manuel Ferris MD [address] [place] [address] Referring Family Medicine 07/06/24 Division Leader Relationship Specialty Start Date End Date Manuel Ferris MD PCP - General Family Medicine 02/27/22 Manuel Ferris MD Referring Family Medicine 02/12/22 Manuel Ferris MD [address] [place] [address] Referring Family Medicine 07/06/24 Team Status: Inactive Member Role Status Dates Gay Natalie Britt , MANAGER RELIABILITY-C Primary Care Provider Active Start: August 22, 2024 End: August 22, 2024 Adolfo Kang MD Attending Provider Active Sta rt: August 22, 2024 End: August 22, 2024 Division Leader Relationship Specialty Start Date End Date Gay Enciso MD [address] [place] [address] Referring Physician Family Medicine 07/18/24 Division Leader Relationship Specialty Start Date End Date Manuel Ferris MD PCP - General Family Medicine 02/27/22 Manuel Freris MD Referring Family Medicine 02/12/22 Manuel Ferris MD [address] [place] [address] Referring Family Medicine 07/06/24 Division Leader Relationship Specialty Start Date End Date Manuel Ferris MD PCP - General Family Medicine 02/27/22 Manuel Ferris MD Referring Family Medicine 02/12/22 Manuel Ferris MD [address] [place] [address] Referring Family Medicine 07/06/24 Division Leader Relationship Specialty Start Date End Date Gay Enciso MD [address] [place] [address] Referring Physician Family Medicine 07/18/24 Division Leader Relationship Specialty Start Date End Date Gay Enciso MD [address] [place] [address] Referring Physician Family Medicine 07/18/24 Division Leader Relationship Specialty Start Date End Date Manuel Ferris MD PCP - General Family Medicine 02/27/22 Manuel Ferris MD Referring Family Medicine 02/12/22 Manuel Ferris MD [address] [facility] [place] [address] Referring Family Medicine 07/06/24 Division Leader Relationship Specialty Start Date End Date Manuel Ferris MD PCP - General Family Medicine 02/27/22 Manuel Ferris MD Referring Family Medicine 02/12/22 Manuel Ferris MD [address] [place] [address] Referring Family Medicine 07/06/24 Division Leader Relationship Specialty Start Date End Date Manuel Ferris MD PCP - General Family Medicine 02/27/22 Manuel Ferris MD Referring Family Medicine 02/12/22 Manuel Ferris MD [address] [facility] [place] [address] Referring Family Medicine 07/06/24 Division Leader Relationship Specialty Start Date End Date Manuel Ferris MD PCP - General Family Medicine 02/27/22 Manuel Ferris MD Referring Family Medicine 02/12/22 Manuel Ferris MD [address] [place] [address] Referring Family Medicine 07/06/24 Division Leader Relationship Specialty Start Date End Date Manuel Ferris MD PCP - General Family Medicine 02/27/22 Manuel Ferris MD Referring Family Medicine 02/12/22 Manuel Ferris MD [address] [place] [id number] Referring Family Medicine 07/06/24 Division Leader Relationship Specialty Start Date End Date Manuel Ferris MD PCP - General Family Medicine 02/27/22 Manuel Ferris MD Referring Family Medicine 02/12/22 Manuel Ferris MD [address] [place] [address] Referring Family Medicine 07/06/24 Division Leader Relationship Specialty Start Date End Date Manuel Ferris MD PCP - General Family Medicine 02/27/22 Manuel Ferris MD Referring Family Medicine 02/12/22 Manuel Ferris MD [address] [facility] [place] [address] Referring Family Medicine 07/06/24 Division Leader Relationship Specialty Start Date End Date Manuel Ferris MD PCP - General Family Medicine 02/27/22 Manuel Ferris MD Referring Family Medicine 02/12/22 Manuel Ferris MD [address] [place] [address] Referring Family Medicine 07/06/24 Division Leader Relationship Specialty Start Date End Date Manuel Ferris MD PCP - General Family Medicine 02/27/22 Manuel Ferris MD Referring Family Medicine 02/12/22 Manuel Ferris MD [address] [place] [address] Referring Family Medicine 07/06/24 Division Leader Relationship Specialty Start Date End Date Manuel Ferris MD PCP - General Family Medicine 02/27/22 Manuel Ferris MD Referring Family Medicine 02/12/22 Manuel Ferris MD [address] [place] [address] Referring Family Medicine 07/06/24 Division Leader Relationship Specialty Start Date End Date Manuel Ferris MD PCP - General Family Medicine 02/27/22 Manuel Ferris MD Referring Family Medicine 02/12/22 Manuel Ferris MD [address] [place] [address] Referring Family Medicine 07/06/24 Division Leader Relationship Specialty Start Date End Date Manuel Ferris MD PCP - General Family Medicine 02/27/22 Manuel Ferris MD Referring Family Medicine 02/12/22 Manuel Ferris MD [address] [place] [address] Referring Family Medicine 07/06/24 Division Leader Relationship Specialty Start Date End Date Manuel Ferris MD PCP - General Family Medicine 02/27/22 Manuel Ferris MD Referring Family Medicine 02/12/22 Manuel Ferris MD [address] [place] [address] Referring Family Medicine 07/06/24 Team Status: Inactive Member Role Status Dates Gay Enciso , MANAGER RELIABILITY-C Primary Care Provider Active Start: September 06, 2024 End: September 06, 2024 Adolfo Kang MD Attending Provider Active Sta rt: September 06, 2024 End: September 06, 2024 Team Status: Inactive Member Role Status Dates Gay Enciso , CARISSA-C Primary Care Provider Active Start: November 13, 2024 End: November 13, 2024 Adolfo Kang MD Attending Provider Active Sta rt: November 13, 2024 End: November 13, 2024 Division Leader Relationship Specialty Start Date End Date Gay Enciso MD [address] [place] [address] Referring Physician Family Medicine 07/18/24 Division Leader Relationship Specialty Start Date End Date Manuel Ferris MD PCP - General Family Medicine 02/27/22 Manuel Ferris MD Referring Family Medicine 02/12/22 Manuel Ferris MD [address] [place], [place] [id number] Referring Family Medicine 07/06/24 Division Leader Relationship Specialty Start Date End Date Manuel Ferris MD PCP - General Family Medicine 02/27/22 Manuel Ferris MD Referring Family Medicine 02/12/22 Manuel Ferris MD [address] [place] [address] Referring Family Medicine 07/06/24 Division Leader Relationship Specialty Start Date End Date Manuel Ferris MD PCP - General Family Medicine 02/27/22 Manuel Ferris MD Referring Family Medicine 02/12/22 Manuel Ferris MD [address] [place] [address] Referring Family Medicine 07/06/24 Team Status: Inactive Member Role Status Dates Gay Enciso , MANAGER RELIABILITY-C Primary Care Provider Active Start: January 31, 2025 End: January 31, 2025 Adolfo Kang MD Attending Provider Active Sta rt: January 31, 2025 End: January 31, 2025 Division Leader Relationship Specialty Start Date End Date Gay Enciso MD [address] [place] [address] Referring Physician Family Medicine 07/18/24 Division Leader Relationship Specialty Start Date End Date Gay Enciso MD [address] [place] [address] Referring Physician Family Medicine 07/18/24 Division Leader Relationship Specialty Start Date End Date Gay Enciso MD [address] [place] [address] Referring Physician Family Medicine 07/18/24 Inactive Administered [...] BE BASED ON THE PRIMARY CLINICAL RECORDS. [employer] provides no warranty or guarantee of the accuracy or completeness of information in this document.
[2025-03-03] MEDS: 0.9 % SODIUM CHLORIDE 1,000 ML 1000 ML IV (16:14)
[2025-03-03 16:23] LABS: Hematocrit 40.9 % (36.0-48.0); Hemoglobin 13.6 g/dL (12.0-16.0); Immature Granulocytes Abs Auto 0.14 10^3/uL (0.00-0.03); Immature Granulocytes Pct Auto 1.4 % (0.0-0.5); Lymphocytes Absolute Auto 1.7 10^3/uL (1.2-3.8); Mean Corpuscular HGB Conc 33.3 g/dL (29.9-35.2); Mean Corpuscular Hemoglobin 32.0 pg (26.7-34.0); Mean Corpuscular Volume 96.2 fL (81.0-99.0); Platelet Count 289 10^3/uL (150-450); Red Blood Count 4.25 10^6/uL (4.20-5.40); White Blood Count 10.3 10^3/uL (4.0-11.0)
[2025-03-03 16:23] LABS: Glucose Urine UA 250 mg/dL (NEGATIVE)
[2025-03-03 16:32] LABS: Anion Gap 18.9; Blood Urea Nitrogen 8.0 mg/dL (7.0-18.0); Calcium 8.8 mg/dL (8.5-10.1); Carbon Dioxide 22.1 mmol/L (21.0-32.0); Chloride 103 mmol/L (98-107); Estimated GFR (African America >60 (>=60 mL/min/1.73m^2); Estimated GFR (Non-African Ame >60 (>=60 mL/min/1.73m^2); Glucose 216 mg/dL (74-106); Potassium 4.0 mmol/L (3.5-5.1); Sodium 140 mmol/L (136-145)
[2025-03-03 16:33] LABS: Cast Seen? NONE SEEN #/LPF (NONE SEEN); Crystals Seen? None Seen #/HPF (None Seen); Urine Culture Indicated YES-FRMC
[2025-03-03 18:15] LABS: Lactate/Lactic Acid 2.8 mmol/L (0.4-2.0)
[2025-03-03 18:32] VITALS: BP 133/64; PULSE 83; TEMP 36.6; O2SAT 97
== END 2025-03-03 18:34 | disposition home or self-care (01) ==
PROVIDERS: Emergency Provider Emergency Medicine; PCP Nurse Practitioner Family
DX: R79.89 Other specified abnormal findings of blood chemistry (principal); Z98.890 Other specified postprocedural states; R06.02 Shortness of breath; F17.200 Nicotine dependence, unspecified, uncomplicated
CPT/HCPCS: 36415; 71045; 80048; 81001; 83605; 85025; 87086; 87106; 99285

== ENCOUNTER 2025-03-09 16:37 | Outpatient (OUT) | payer OTHER, SELFPAY ==
--- OUTSIDE RECORDS SUMMARY | 2025-03-04 20:05 | XMS_ITS | Continuity of Care Document ---
Author Organization [facility] Address [address] [place] [address] Phone Care Team Providers Care Commercial Stripper Name Role Phone Gay De La Torre NP-C Primary Care Provider Bandar Portillo APRN Attending Provider Margie Arnett NP Attending Provider Adolfo Kang MD Attending Provider Adolfo Kang MD Other Provider [phone] Mathew Ji MD Attending Provider Terence Blum MD Attending Provider Jose Perez DO Attending Provider [phone] Care Teams Visit Care Team Team Status: Inactive Member [...] January 17, 2025 End: January 17, 2025 Visit Care Team Team Status: Active Member Role Status Dates Gay De La Torre NP-C Primary Care Provider Active Start: January 31, 2025 Adolfo Kang MD Attending Provider Active Sta rt: January 31, 2025 Adolfo Kang MD Other Provider Active Start: January 31, 2025 Visit Care Team Team Status: Inactive Member Role Status Dates Gay De La Torre NP-C Primary Care Provider Active Start: February 14, 2025 End: February 14, 2025 Margie Arnett NP Attending Provider Active Start: February 14, 2025 End: February 14, 2025 Visit Care Team Team Status: Inactive Member Role Status Dates Mathew Ji MD Attending Provider Active St art: February 26, 2025 End: February 26, 2025 Visit Care Team Team Status: Inactive Member Role Status Dates Bandar Portillo APRN Attending Provider Active Start: February 28, 2025 End: February 28, 2025 Gay De La Torre NP-C Primary Care Provider Active Start: February 28, 2025 End: February 28, 2025 Visit Care Team Team Status: Inactive Member Role Status Dates Terence Blum MD Attending Provider Active Sta rt: March 02, 2025 End: March 02, 2025 Gay De La Torre NP-C Primary Care Provider Active Start: March 02, 2025 End: March 02, 2025 Patient Care Team Team Status: Inactive Member Role Status Dates Jose Perez DO Attending Provider Active S tart: March 03, 2025 End: March 03, 2025 Chief Complaint and Reason for Visit Chief Complaint Admit Date nausea/Burning under left rib December 12, 2024 10:42am reshedule procedure January 17, 2025 10 :29am Back Pain January 31, 2025 10:00am 2 week follow up after RFA January 9:23am Unknown February 26, 2025 7: 30pm 8 wk f/u-constipation/dyspepsia/abd. robb n February 28, 2025 1:29pm Pilonidal Cyst March 02, 2025 2 :46pm Unknown March 03, 2025 4 :14pm Reason for Visit Admit Date Abdominal burning sensation in left uppe r [...] 2025 9:23am Sacroiliitis February 14, 2025 9:23am Abdominal pressure February 28, 2025 1: 29pm Dyspepsia February 28, 2025 1: 29pm Fatty liver February 28, 2025 1: 29pm GERD (gastroesophageal reflux disease) O ctober 2024 1:29pm Reason for Referral Referring Provider Name Referring Provider Address Referring Provider Phone Referral Date Requested Appointment Date Referral Reason Adolfo Kang [address] [address] Work Phone: Call Dr. Ameena brandon office to schedule a follow up appointment if you do not already have one scheduled Allergies, Adverse Reactions, Alerts Allergen Type Severity Reaction Last Updated Verified Status clindamycin Allergy Unknown Unknown Reaction March 02, 2025 3:02pm Yes Active sulfamethoxazole Allergy Unknown lymph swelling Octo 2024 3:02pm Yes Active trimethoprim Allergy Unknown lymph swelling March 02, 2025 3:02pm Yes Active Social History Smoking Status Status Start Date End Date Date of Observa tion Smokes tobacco daily (finding) March 02, 2025 3:06pm Observation Status Observation Response Date of Response [...] e Sacroiliitis Unknown Active Lupus Unknown Active Fatty liver Unknown Active Abdominal mass Unknown Active Diarrhea [...] Twice daily November 13, 2024 11:24a m Unknown Acetaminoph en (Acetaminop hen Extra Strength) 500 mg tablet Active 1000 MG PO Every 6 hours as needed for pain 2024 12:00a m Unknown Ibuprofen 400 mg tablet Active 400 MG PO 2-3 TIMES PER DAY as needed for pain 2024 12:00a m Unknown Alprazolam 0.25 mg tablet Discont inued 0.25 MG PO Daily as needed for anxiety October 20, 2023 12:00a m July 31, 2024 4:04p m Belimumab (Benlysta) 200 mg/mL auto-inject or Discont inued 200 MG SUBCUT every week October 20, 2023 12:00a m November 13, 2024 11:23 am Clobetasol 0.05 % shampoo Active 1 APPLIC TOPICA L As Directed October 20, 2023 12:00a m Unknown Fluocinonid e 0.05 % solution Active 1 APPLIC TOPICA L Daily as needed for rash October 20, 2023 12:00a m Unknown Hydroxychlo roquine 200 mg tablet Active 400 MG PO Daily October 20, 2023 12:00a m Unknown Azathioprin e 50 mg tablet Discont inued 50 MG PO Three times daily October 20, 2023 12:00a m Steffi 23rd, 2025 11:22 am Pravastatin 20 mg tablet Discont inued 20 MG PO Daily October 20, 2023 12:00a m October 20, 2023 1:08p m Prednisone 10 mg tablet Active 20 MG PO Daily October 20, 2023 12:00a m Unknown Pregabalin 75 mg capsule Active 225 MG PO Daily as needed for nerve pain October 20, 2023 12:00a m Unknown Ergocalcife rol (Vitamin D2) 1,250 mcg (50,000 unit) capsule Discont inued 66833 UNIT PO every week October 20, 2023 12:00a m November 13, 2024 11:24 am Metoprolol Tartrate 50 mg tablet Active 200 MG PO Daily October 20, 2023 12:00a m Unknown Fidaxomicin (Dificid) 200 mg tablet Discont inued 200 MG PO .every other day October 20, 2023 12:00a m December 16, 2023 2:11p m Fidaxomicin (Dificid) 200 mg tablet Discont inued 200 MG PO Every 12 hours 20 October 20, 2023 12:00a m December 16, 2023 2:11p m Ergocalcife rol (Vitamin D2) 1,250 mcg (50,000 unit) capsule Active 81890 UNIT PO 3 Times a week November 13, 2024 11:23a m Unknown Gentamicin 0.1 % ointment Discont inued 1 APPLIC TOPICA L Three times daily 15 November 22, 2023 12:00a m December 16, 2023 2:12p m belimumab (Benlysta) Active IV every month November 13, 2024 12:00a m Unknown Cephalexin 500 mg capsule Active 500 MG PO Three times daily Oct r 2024 12:00a m Unknown Dicyclomine 10 mg capsule Discont inued 10 [...] PO Daily July 31, 2024 12:00a m Unknown Nystatin 100,000 unit/mL suspension Discont inued 1 ML PO Daily July 31, 2024 12:00a m December 12, 2024 10:49 am swish and swallow Thiamine Hcl (Vitamin B1) 100 mg tablet Active 100 MG PO Daily December 12, 2024 12:00a m Unknown Folic Acid 1 mg tablet Active 1 MG PO Daily December 12, 2024 12:00a m Unknown Duloxetine 20 mg capsule,del ayed release(DR/ EC) Active 20 MG PO Daily December 12, 2024 12:00a m Unknown gammagard Discont inued IV December 12, 2024 12:00a m December 12, 2024 10:58 am gammagard Active IV EVERY 4 WEEKS December 12, 2024 10:58a m Unknown Immunizations Immunization Event Date Not Given Reason Dose Number Ticket Seller Lot Number Vaccine Information Statement (VIS) Detail Administration Location COVID-19 mRNA, Comirnaty (CarZumer) September 28, 2020 COVID-19 mRNA, Comirnaty (CarZumer) October 19, 2020 COVID-19 mRNA, Comirnaty (Pfizer) May 26, 2021 COVID-19 mRNA Bivalent Booster (CarZumer) February 08, 2022 COVID-19 (Hipster) 12Y and older February 23, 2023 Procedures Procedure Date Performed Status Urine Culture March 03, 2025 active Urine Culture February 26, 2025 completed Aerobic Culture March 02, 2025 completed Anaerobic Culture March 02, 2025 active Gram Stain March 02, 2025 completed OR Pilonidal Cystectomy (Not Applicable) March 02, 2025 4:00pm completed Relevant Diagnostic Tests and/or Laboratory Data Microbiology Results Procedure Source Result Collection Date/Time Result Date/Time Result Comment Performing Site Urine Culture Urine bacilli - 2 Days February 26, 2025 7:30pm February 28, 2025 11:08am [facility] [id number] [address] [place] [address] Aerobic Culture Coccyx, Abscess Serratia marcescens March 02, 2025 5:17pm March 04, 2025 9:14am [facility] [id number] [id number] Gram Stain Coccyx, Abscess March 02, 2025 5:17pm March 03, 2025 2:17pm [facility] [id number] [address] [id number] Vital Signs Vital Reading Result Reference Range Collection Date/Time Height 67 [in_i] December 12, 2024 10:45am [...] 76 mm[Hg] 60-100 February 14, 2025 9:42am Height 67 [in_i] February 28 1:34pm Weight 127.00 kg February 28 1:34pm Heart Rate 99 /min 60-100 February 28 1:34pm Respiratory rate 18 /min -February 1:34pm Oxygen saturation by Pulse oximetry 95 % 95-100 February 28, 2025 1: 34pm BP Systolic 118 mm[Hg] 100-140 February 28 1:34pm BP Diastolic 70 mm[Hg] 60-100 February 28 1:34pm BMI (Body Mass Index) 43.8 kg/m2 Octobe r 2024 1:34pm Height 67 [in_i] March 02, 025 3:06pm Weight 129.27 kg March 02, 025 3:06pm Body Temperature 98.4 [degF] 97.6-99.0 February 3:06pm Heart Rate 84 /min 60-March 02, 2 025 5:29pm Respiratory rate 16 /min -February 5:29pm Oxygen saturation by Pulse oximetry 97 % 95-100 March 02, 2025 5 :29pm BP Systolic 117 mm[Hg] 100-140 March 02, 2 025 5:29pm BP Diastolic 67 mm[Hg] 60-100 March 02, 2 025 5:29pm Advance Directives Advance Directive Response Recorded Date/ Time Advance Directives No September 17, 019 2:40pm Insurance Providers Guarantor Ariadna Paniagua Address [address] [place] [id number] Contact Info. Home Phone: Payer Policy Id Subscriber's Name Subscriber Id Effective Date Expiration Date [employer] [id number] Ariadna Paniagua [id number] Encounters Encounter Location(s) Arrival/Admit Date Discharge/Depart Date Provider(s) Departed Physician/Prov ider Office Visit -[facility] December 12, 2024 10:42am December 12, 2024 11:13am Lynne Childers APRN Departed Physician/Prov ider Office Visit -[facility] January 17, 2025 10:29am January 17, 2025 11:04am Margie Arnett NP Non-patient / Non-visit -[facility] January 31, 2025 10:00am Adolfo Kang MD Departed Physician/Prov ider Office Visit -[facility] February 14, 2025 9:23am February 14, 2025 10:07am Margie Arnett NP Departed Referred -[facility] February 26, 2025 7:30pm February 26, 2025 7:31pm Mathew Ji MD Departed Physician/Prov ider Office Visit -[facility] February 28, 2025 1:29pm February 28, 2025 2:17pm Lynne Childers APRN Departed Surgical Day Care -[facility] March 02, 2025 2:46pm March 02, 2025 5:35pm Terence Pacheco MD Departed Referred -[facility] March 03, 2025 4:14pm March 03, 2025 4:15pm Saúl Mary DO Recent Diagnosis Onset Date Admit Date Abdominal burning sensation in left upper quadrant [...] 9:23am Sacroiliitis Unknown February 14, 2025 9:23am Abdominal pressure Unknown February 28, 2025 1:29pm Dyspepsia Unknown February 28 1:29pm Fatty liver Unknown February 28 1:29pm GERD (gastroesophageal reflux disease) Unknown February 28, 2025 1:29pm Assessments Diagnosis Onset Date Resolution Status Admit Date Abdominal burning sensation in left upper quadrant [...] January 232024 9:23am Other chronic pain acute Sept kaylin 2024 9:23am Sacroiliitis acute February 142024 9:23am Abdominal pressure acute Oct2024 1:29pm Dyspepsia acute February 28 1:29pm Fatty liver acute February 28, 2025 1:29pm GERD (gastroesophageal reflu x disease) acute February 28 1:29pm Plan of Treatment Author Bandar Portillo [facility] Authored February 28, 2025 4: 36pm A 44-year-old female patient with diagnosis of GERD, dyspepsia, abdominal pressure and MASH Continue Protonix 40 mg twice daily as patient dyspeptic complaints including epigastric pain and heartburn have been resolved. Patient negative for dysphagia as well Patient ordered CT scan for evaluation abdominal pressure/mass bulge in abdomen. Patient did undergo ultrasound with unremarkable findings but continues with abdominal pressure. Patient prefers [facility] location and has approval from insurance if CT scan is performed there Patient defers evaluation of MASH as she wants to see how things go on her CT scan Continue as needed use of MiraLAX for occasional constipation. Patient has since had diarrhea however this has spontaneously resolved over the past couple of days. Patient tested with regard to infectious causes, C. difficile, E. coli, Shigella, Giardia which were negative Follow-up in this office in a month on results of CT scan. If patient seen with significant hepatic steatosis/MASH evaluation with FibroScan would be warranted Author Chet Galicia [facility] Authored January 17, 2025 11 :02am 44 [...] fluoroscopic guidance. Follow up after procedure. Author [facility] Authored February 14, 2025 10:07am 44 year [...] while managing her pain. Author Bandar Portillo [facility] Authored December 12, 2024 11:2 6am [...] Tests Test Name Ordered Date Scheduled Date Urine Culture March 03, 2025 4:14pm XR thoracic spine 3V* February 14, 2025 10:03 am Future Visits Future appointment information is unavailable Referrals to Other Providers Reason for Referral Referral Start Date Provider Provider Contact Information Provider Address Call Dr. Donaldson office to schedule a follow up appointment if you do not already have one scheduled Adolfo Kang MD Work Phone: [address] [place] [address] [address] [facility] [address] Terence Pacheco MD Work Phone: [address] [place] [address] [address] [facility] [address] Future Procedures Procedure Name Ordered Date Scheduled Date Urine Culture March 04, 2025 12:26pm Octob er 2024 4:14pm Discharge Order January 31, 2025 11:43am Sep tember 2024 11:43am Wound Culture (Deep) March 02, 2025 5:17pm O ctober 2024 5:17pm Discharge Order March 02, 2025 5:32pm Octobe r 2024 5:32pm Future Medications Future medication information is unavailable Patient Instructions Instruction Admit Date Know your Meds Jorge Luis Non Diagnostic Block January 31, 2025 10:00am Skin abscess drainage - Disc harge instructions How to change a dressing Know your Meds March 02, 2025 2:46pm Goals Acute Goals Author Authored Date Experience reduced anxiety * Identifies current stressors * Develops effective coping behaviors * Uses support services as appropriate [facility] March 02, 2025 6:46pm Remain free of complications [facility] March 02, 2025 6:46pm Understand preop/postop care/sensations * Verbalizes understanding of surgical procedure * Verbalizes understanding of sensations following surgery * Verbalizes understanding of post-op treatment plan [facility] March 02, 2025 6:46pm Report pain at tolerable lev el * Uses pain scale appropriately * Identify options for pain control - Analgesics - Narcotics - Non-medication measures [facility] March 02, 2025 6:46pm Absence of imbalanced fluid volume s/s [facility] March 02, 2025 6:46pm Absence of physical injury [facility] March 02, 2025 6:46pm Absence of surgical site infection [facility] March 02, 2025 6:46pm
--- OUTSIDE RECORDS SUMMARY | 2025-03-09 16:40 | XMS_ITS | Clinical Summary ---
Author Organization [facility] Address [address] [place] [address] Care Team Providers Care Paint Pourer Name Role Phone Gay De La Torre CNP Primary Care Provider [phone] Allergies Active Allergy Reactions Criticality Noted Date [...] 06/01/2023 Tachycardia 06/01/2023 Bilateral wrist pain 02/04/2023 halfway current use of systemic steroids 02/04 Raynaud's [...] topic Insurance [employer] [place] [employer] Care Teams Paint Pourer Relationship Specialty Start Date End Date Gay De La Torre CNP [facility], [facility] [place] [id number] PCP - General Family Medicine 03/01/24
--- OUTSIDE RECORDS SUMMARY | 2025-03-09 16:40 | XMS_ITS | Clinical Summary ---
Author Organization [facility] Address [address] [place] [address] Care Team Providers Care Residential Support Specialist Name Role Phone Gay De La Torre CNP Primary Care Provider [phone] Social History Tobacco Use Types Packs/Day Years Used Date Smoking Tobacco: Never Assessed Comments Unknown Sex and Gender Information Value Date Recorded Sex Assigned at Not on file Legal Sex Female 9:51 AM EST Gender Identity Not on file Sexual Orientation Not on file Plan of Treatment Upcoming Encounters Date Type Department Care Team (Late st Contact Info) Description 03/14/2025 12:00 PM EDT Office Visit [facility] [address] [place] [phone] Colleen Hamilton MD [address] [place] [id number] Health Maintenance Due Date Last Done Comments [...] Procedure Name Priority Date/Time Associated Diagnosis Comments REFERRAL (OUTSIDE) Routine 03/08/2025 2:11 PM EDT from Last 3 Months Results * REFERRAL (OUTSIDE) (03/08/2025 2:11 PM EDT) us Historical Provider [facility] Fin al Result from Last 3 Months Insurance [employer] Care Teams Residential Support Specialist Relationship Specialty Start Date End Date Gay De La Torre CNP [address] [place] [address] PCP - General Nurse Practitioner - Family 03/27/24
--- OUTSIDE RECORDS SUMMARY | 2025-03-09 16:40 | XMS_ITS | Continuity of Care Document ---
Author Organization [facility] Address [address] [place] [address] Phone Care Team Providers Care Debone Processing Supervisor Name Role Phone Gay De La Torre NP-C Primary Care Provider Bandar Portillo APRN Attending Provider Margie Arnett NP Attending Provider Adolfo Kang MD Attending Provider [phone] Adolfo Kang MD Other Provider [phone] Mathew Ji MD Attending Provider Terence Blum MD Attending Provider Jose Perez DO Attending Provider Care Teams Visit Care Team Team Status: [...] Appointment Date Referral Reason Adolfo Kang [address] [place] [address] Work Phone: Call Dr. Ameena brandon office [...] 1,250 mcg (50,000 unit) capsule Discont inued 76103 UNIT PO every week October 20, 2023 [...] D2) 1,250 mcg (50,000 unit) capsule Active 47082 UNIT PO 3 Times a week November 13, 2024 11:23a m Unknown Gentamicin 0.1 % ointment Discont inued 1 APPLIC TOPICA L Three times daily 15 November 22, 2023 12:00a m December 16, 2023 2:12p m belimumab (Benlysta) Active IV every month November 13, 2024 12:00a m Unknown Cephalexin 500 mg capsule Active 500 MG PO Three times daily Octobe r 2024 12:00a m Unknown Dicyclomine 10 [...] Discont inued 40 MG PO Daily 30 30 Octobe r 2023 12:00a m Febru [...] Event Date Not Given Reason Dose Number Lead Business Analyst Lot Number Vaccine Information Statement (VIS) Detail Administration Location COVID-19 mRNA, Comirnaty ([employer]) September 28, 2020 COVID-19 mRNA, Comirnaty ([employer]) October 19, 2020 COVID-19 mRNA, Comirnaty ([employer]) May 26, 2021 COVID-19 mRNA Bivalent Booster ([employer]) February 08, 2022 COVID-19 ([employer]) 12Y and older February 23, 2023 Procedures [...] 26, 2025 7:30pm February 28, 2025 11:08am [facility] [id number] [address] [place] [address] Aerobic Culture Coccyx, Abscess Serratia marcescens March 02, 2025 5:17pm March 04, 2025 9:14am [facility] [id number] [address] [facility] [address] Gram Stain Coccyx, Abscess March 02, 2025 5:17pm March 03, 2025 2:17pm [facility] [id number] [address] [facility] [address] Vital Signs Vital Reading Result Reference Range [...] 1:34pm Heart Rate 99 /min 60-100 February 28, 1:34pm Respiratory rate 18 /min -February 1:34pm [...] Time Advance Directives No September 17 2:40pm Insurance Providers Guarantor Ariadna Paniagua Address [address] [place] [phone] Contact Info. Home Phone: Payer Policy Id Subscriber's Name Subscriber Id Effective Date Expiration Date [facility] Medicaid [id number] Ariadna Paniagua [id number] Encounters Encounter Location(s) Arrival/Admit Date Discharge/Depart Date Provider(s) Departed Physician/Prov ider [facility] December 12, 2024 10:42am December 12, 2024 11:13am Lynne Childers APRN Departed Physician/Prov ider Office Visit -[facility] January 17, 2025 10:29am January 17, 2025 11:04am Margie Arnett NP Non-patient / Non-visit -[facility] January 31, 2025 10:00am Adolfo Kang MD Departed Physician/Prov ider Office Visit -[facility] February 14, 2025 9:23am February 14, 2025 10:07am Margie Arnett NP Departed Referred -[facility] February 26, 2025 7:30pm February 26, 2025 7:31pm Mathew Ji MD Departed Physician/Prov ider Office Visit -[facility] February 28, 2025 1:29pm February 28, 2025 2:17pm Lynne Childers APRN Departed Surgical Day Care -[facility] March 02, 2025 2:46pm March 02, 2025 5:35pm Terence Pacheco MD Departed Referred -[facility] March 03, 2025 4:14pm March 03, 2025 [...] 232024 9:23am Other chronic pain acute Septem kaylin 2024 9:23am Sacroiliitis acute February 142024 9:23am Abdominal pressure acute Octobe r 2024 1:29pm Dyspepsia acute February 28 1:29pm Fatty liver acute February 28, 2025 1:29pm GERD (gastroesophageal reflu x disease) acute February 28 1:29pm Plan of Treatment Author Bandar Portillo [facility] Authored February 28, 2025 4: 36pm [...] but continues with abdominal pressure. Patient prefers [place] location and has approval from insurance if [...] FibroScan would be warranted Author Chet Galicia [facility] Authored January 17, 2025 11 :02am [...] guidance. Follow up after procedure. Author [facility] Authored February 14, 2025 10:07am 44 [...] while managing her pain. Author Bandar Portillo [facility] Authored December 12, 2024 11:2 6am [...] one scheduled Adolfo Kang MD Work Phone: [address] [place] [address] [address] [facility] [id number] Terence Pacheco MD Work Phone: [address] [place] [address] [address] [facility] [id number] Future Procedures Procedure Name Ordered Date Scheduled [...] behaviors * Uses support services as appropriate [facility] March 02, 2025 6:46pm Remain free of complications [facility] March 02, 2025 6:46pm Understand preop/postop care/sensations * Verbalizes understanding of surgical procedure * Verbalizes understanding of sensations following surgery * Verbalizes understanding of post-op treatment plan [facility] March 02, 2025 6:46pm Report pain at tolerable lev el * Uses pain scale appropriately * Identify options for pain control - Analgesics - Narcotics - Non-medication measures [facility] March 02, 2025 6:46pm Absence of imbalanced fluid volume s/s [facility] March 02, 2025 6:46pm Absence of physical injury [facility] March 02, 2025 6:46pm Absence of surgical site infection [facility] March 02, 2025 6:46pm
--- OUTSIDE RECORDS SUMMARY | 2025-03-09 16:43 | XMS_ITS | CCD ---
Author Organization [facility] [employer] Care Team Providers Care X Ray Developer Name Role Phone VICTOR MANUEL GUZMAN Referring Unavailable Unavailable Primary Care Provider UnavailJONAS Stuart Referring Unavailable Britt SENIOR NURSE MANAGER.TRUE, Gay Primary Care Provider Mirela Kelsey Unavailable Britt SENIOR NURSE MANAGER.RADIOLOGY SPECIAL PROCEDURE TECH, Gay Primary Care Provider Manuel Ferris MD [...] Consulting Unavailable BLANK, DR DIETZ Attending Unavailable BUFFY, DR DIETZ Admitting Unavailable HOY ., DR [...] Enciso-Ananya Gay Natalie Primary Care Provider [phone] Charles Nicole MD Primary Care Provider CALOS MENDOZA Attending Unavailable Unavailable Primary Care Provider UnavailManuel Calixto MD Unavailable Britt PRINT BIND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-C, Gay Natalie Primary Care Provider [phone] Adolfo Kang MD Attending Provider ALHAJI HEAD [...] BRITT, GAY S Primary Care Unavailable Britt PRINT BIND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-C, Gay Natalie Primary Care Provider Jorge Luis LEE, Adolfo Jane Attending Provider [phone] Britt PRINT BIND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-C, Gay Natalie Primary Care Provider [phone] Jorge Luis LEE, Adolfo Jane Attending Provider [phone] Margie Arnett NP Attending Provider Britt PRINT BIND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-C, Gay Natalie Primary Care Provider Jorge Luis LEE, Adolfo Jane Attending Provider [phone] Bandar Portillo APRN Attending Provider Britt PRINT BIND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-C, Gay Natalie Primary Care Provider Adolfo Kang MD Attending Provider Janes Barfield MD Attending Provider Adolfo Kang MD Other Provider ABHYANKAR, VERA [...] Britt FERRER-C, Gay Estrada Primary Care Provider [phone] Adolfo Kang MD Attending Provider [phone] Mathew Ji MD Attending Provider BERNABE ENGLISH Attending Unavailable GORDO BARFIELD Attending Unavailable MELISSA HUDDLESTON Attending Unavailable OLY PLASCENCIA Referring Unavailable BERNABE ENGLISH Attending Unavailable TERENCE DAY Attending Unavailable BERNABE ENGLISH Referring Unavailable LUAN VALDIVIA Attending Unavailable OLY PLASCENCIA Attending Unavailable MARKY MIKE Attending Unavailable GORDO BARFIELD Attending Unavailable GAY ENCISO Referring Unavailable OLY PLASCENCIA Attending Unavailable Britt PRINT BIND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-C, Gay Natalie Primary Care Provider Margie Arnett NP Attending Provider Terence Blum MD Attending Provider Jose Perez DO Attending Provider [phone] Janes Barfield Admitting Unavailab Janes Quispe Attending Unavailab le Britt, Gay Natalie Primary Care Unavailable Jorge Luis, Adolfo S Admitting Unavailable Adolfo Kang S Attending Unavailable Britt, Gay Natalie Primary Care Unavailable Terence Blum Admitting Unavailable Terence Blum Attending Unavailable Britt, Gay Natalie Primary Care Unavailable Jorge Luis, Adolfo S Admitting Unavailable Jorge Luis, Adolfo S Attending Unavailable Britt, Gay Natalie Primary Care Unavailable Mathew Ji Admitting Unavailable Mathew Ji Attending Unavailable Jose Perez Admitting Unavailable Jose Perez Attending Unavailable Allergies Allergy Classification Reported Allergen(s) Allergy Type Date of Onset Reaction(s) Facility Dihydrofolate Reductase Inhibitors (antibiotic) (3 sources) Trimethoprim Drug Allergy Other: See Comments [facility] Doxycycline (3 sources) Doxycycline Drug Allergy Other: See Comments [facility] Latex (3 sources) Latex Substance Allergy Rash [facility] Lincosamides (antibiotic) (3 sources) Clindamycin Drug Allergy Unknown [facility] Opioid Agonists (3 sources) Codeine Drug Allergy Other: See Comments [facility] Sulfamethoxazole / Trimethoprim (4 sources) Sulfamethoxazole / Trimethoprim Drug Allergy Swelling [facility] Sulfonamides (antibiotic) (3 sources) Sulfamethoxazole Drug Allergy Other: See Comments [facility] Work Phone: (20 sources) Codeine; Translations: [CODEINE] Drug Allergy Other: See Comments [facility] (20 sources) Latex; Translations: [LATEX] Drug Allergy Rash [facility] (20 sources) Sulfamethoxazole; Translations: [SULFAMETHOXAZOLE] Drug Allergy GI Upset, Other: See Comments [facility] (20 sources) Clindamycin; Translations: [CLINDAMYCIN] Drug Allergy Unknown [facility] (4 sources) Sulfamethoxazole / Trimethoprim Drug Allergy lymph swelling [facility] Other (20 sources) Doxycycline; Translations: [DOXYCYCLINE] Drug Allergy Other: See Comments, Other, Unknown, Other (See Comments) [facility] (20 sources) Sulfamethoxazole / Trimethoprim; Translations: [SULFAMETHOXAZOLE-T RIMETHOPRIM] Drug Allergy Swelling, Other, GI Disturbance, Other (See Comments) [facility] (20 sources) Trimethoprim; Translations: [TRIMETHOPRIM] Drug Allergy Other: See Comments [facility] (1 source) Latex Drug allergy (disorder) [facility] Repository (1 source) Sulfamethoxazole / Trimethoprim Drug Allergy [facility] Repository (20 sources) Sulfamethoxazole Allergy to substance [facility] (20 sources) Latex Propensity to adverse reactions Rash [facility] (1 source) Omeprazole; Translations: [OMEPRAZOLE] Drug Allergy [facility] Repository (1 source) pantoprazole; Translations: [PANTOPRAZOLE] Drug Allergy [facility] Repository (1 source) Clindamycin Drug Allergy [facility] Repository (1 source) Sulfamethoxazole Drug Allergy [facility] Repository (1 source) Trimethoprim Drug Allergy [facility] Repository Medications Current Medications Medication Drug [...] gamma-Aminobutyric Acid-ergic Agonist Start: 02-09-20 End: 02-29-20 25 take 1 tablet by mouth at bedtime [...] once weekly cephalexin 500 mg oral capsule (11 sources) Cephalosporin Antibacterial Start: 02-27-2025 take 1 capsule by mouth three times daily Start: 06-15-2024 End: 06-22-2024 take 1 capsule [...] take 1 tablet by mouth once daily clotrimazole 10 mg oral lozenge (10 sources) [...] times a day as needed. 02/01/2024 Active hykyesoaxzQTTMY-fdnunc-dwetl belia (BMX 1:1:1) 1:1:1 liqd (20 sources) Start: 07-12-2024 take 5 mL by mouth every six hours as needed uzuimoehhqXPZDH-zfqbjr-muywmwgvp (BMX 1:1:1) 1:1:1 liqd Take 5 mL [...] Obesity, Class III, BMI 40-49.9 (morbid obesity) ([facility]) , Pre-diabetes Inject 0.75 mg subcutaneously one [...] (CYMBALTA) 20 mg capsule Indications: Depression, recurrent ([facility]) , Chronic pain syndrome Take 1 capsule by mouth once daily. 30 capsule 2 10/29/2022 04/26/2023 Discontinued (Course of therapy completed) Start: 03-09-2022 End: 06-07-2022 take 1 capsule by mouth once daily DULoxetine (CYMBALTA) 20 mg capsule Take 1 capsule by mouth once daily. 30 capsule 2 03/09/2022 Active Comment on above: Take 1 capsule by [facility] once daily. ergocalciferol 1.25 mg oral capsule [...] D2) 1,250 mcg (50,000 unit) capsule Discontinued 50939 UNIT PO every week October 20, 2023 [...] 0 03/06/2021 Active take 1 capsule by [place] [facility] every week ergocalciferol (Vitamin D2) 1.25 MG (82864 UT) capsule Take 50,000 Units by mouth [...] 12-12-2024 take 1 tablet by mouth once da jennifer Start: 12-12-2024 Folic Acid 1 m g tablet Active PO Daily December 12, 2024 12:00am Complies with drug therapy Start: 03-18-2022 End: 11-26-2023 take 1 tablet by mouth once daily Folic Acid 1 mg tabl et Active 1 MG PO Daily December 12, 2024 12:00am Complies with drug therapy Comment on above: Take 1 tablet by [...] 600 mg by mouth . Immunoglobulin G (20 sources) Human Immunoglobulin G Start: 12-12-2024 Start: [...] Start: 10-20-2023 take 4 tablets by mo [facility] once daily Start: 10-20-2023 take 200 mg [...] Active Start: 05-25-2022 take 1 tablet by [facility] twice daily metoprolol tartrate, short acting, [...] Start: 01-19-2022 take 1 capsule by mo [facility] once daily naltrexone capsule 1 mg [...] 0.4 mg unde r the tongue. 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 HOLD IF ON ANTIBIOTICS OR ILL. 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 Take [facility]tab daily by [facility]. Hold if on antibiotics or ill. TAKE 3 TABLETS BY [facility] DAILY WITH FOOD. HOLD IF ON ANTIBIOTICS [...] oral tablet (9 sources) Corticosteroid Start: End: 4 dexAMETHasone (Decadron) 2 MG tablet [...] mg, ORAL, ONCE, 1 dose, O n Wed10/04/24 at 1430 Start: 10-02-2024 End: 10-02-2024 [...] at bedtime. gentamicin 0.001 mg/mg topical ointment (18 sources) Start: 11-22-2023 End: 12-16-2023 Gentamicin 0.1 [...] on above: Take 1 capsule by mo [facility] twice daily. pravastatin sodium 20 [...] 1:08pm Start: 06-24-2023 take 1 tablet by [facility] once daily pravastatin (Pravachol) 20 [...] out once daily as needed for pain Start: [...] Comment on above: Take 1 tablet by [facility] once daily. rivaroxaban 15 mg oral [...] sources) Drug therapy status; Translations: [Encounter for prison 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] Episodic Other aftercare (1 source) Polypharmacy ; 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] Episodic Other aftercare (1 source) Long-term current use of drug therapy; Translations: [Encounter for prison 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] 11-11-2023 Episodic Other [...] Translations: [Diarrhea] 09-22-2023 Episodic Other gastrointestinal disorders (14 sources) Abdominal mass; Translations: [Intra-abdominal and pelvic swelling, mass and lump, unspecified site] 12-12-2024 Episodic Other gastrointestinal disorders (14 sources) Burning sensation; Translations: [Other specified symptoms and signs involving the digestive system and abdomen] 12-12-2024 Episodic Other gastrointestinal disorders (14 sources) Abdominal bloating; Translations: [Abdominal distension (gaseous)] 12-12-2024 Episodic Other gastrointestinal disorders (14 sources) Constipation; Translations: [Constipation, unspecified] 12-12-2024 Episodic Other inflammatory condition of skin (20 sources) Discoid lupus erythematosus; 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] Onset: 2 03-12-2022 Chronic Other inflammatory condition of skin (4 sources) Discoid lupus erythematosus; Translations: [DISCOID LUPUS ERYTHEMATOSUS] Onset: 2 Chronic Other inflammatory condition of skin (10 sources) Lupus erythematosus; 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] [...] unspecified body region, subsequent encounter] Episodic Other liver diseases (4 sources) Steatosis of liver; Translations: [Fatty (change of) liver, not elsewhere classified] 02-28-2025 Chronic Other lower respiratory disease (2 sources) Snoring; [...] 04-06-2024 Chronic Skin and subcutaneous tissue infections (7 sources) Pilonidal cyst; Translations: [Pilonidal cyst without [...] [Supraventricular tachycardia, unspecified (CMS-HCC)] Onset: 4 Unclassified (6 sources) Call Dr. Donaldson office to schedule [...] (20 sources) Drug therapy finding; Translations: [Other prison (current) drug therapy] Onset: 03-05-2021 Episodic Other aftercare (20 sources) H/O: high risk medication; 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] Onset: 06-15-2022 06-15-2022 Episodic Other aftercare (1 source) 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; Translations: [OTH LEAD ESTHETICIAN 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 THERAPY] Onset: 03-23-2022 Episodic Other aftercare (20 sources) Long-term current use of systemic steroid; Translations: [nursing home (current) use of systemic steroids] Onset: 02-04-2023 [...] Value Interpretation Reference Range Facility Urine Cultureon 03-03-2025 Bacteria identified Cx Nom (U) ORGANISM: Christine albicans (O:CANALB) Wayside Count >100,000 PERFORMED BY: [facility] [address] [place] [address] PATHOLOGIST HAT PARTS CUTTER MACHINE TIM FOOTE M.D. Normal [facility] Comment on above: Performed By: #### C UU #### [address] Aerobic Cultureon 03-02-2025 Aerobic Culture Comment pilonidal abscess culture ORGANISM: Serratia marcescens (O:SERMAR) Quantity of Growth Light Growth Comment pilonidal abscess culture ORGANISM: Anaerobe isolated (O:CHRISTIAN) Comments . Quantity of Growth Light Growth Send Test to Ref. Lab Sent to [facility] for CHRISTIAN ID Please contact Microbiology within 7 days if anaerobic susceptibilities are needed. Comment pilonidal abscess culture Gram Stain Result 1+ Gram Positive Cocci 2+ White Blood Cells Aerobic ELPIDIO Charge (NMIC56) ---- SUSCEPTIBILITY --- ORGANISM: O:SERMAR ANTIBIOTIC INTERPRETATION ELPIDIO Amikacin S <16 Aztreonam I <4 Cefepime S <2 Ceftazidime I <1 Ceftazidime/Avibactam S <4 Ceftolozane/Tazobacta m S <2 Ceftriaxone I <1 Ciprofloxacin R >2 Ertapenem S <0.5 Gentamicin S <2 Levofloxacin S <0.5 Meropenem S <1 Meropenem/Vaborbactam S <2 Piperacillin/Tazobact am I <8 Tetracycline R >8 Tigecycline S <2 Tobramycin S <2 Trimethoprim/Sulfamet hoxazole S <0.5 S = SUSCEPTIBLE I = INTERMEDIATE R = RESISTANT BLANK = DATA NOT AVAILABLE, OR DRUG NOT ADVISABLE OR TESTED R* = RESISTANCE DUE TO EXTENDED SPECTRUM BETA-LACTAMASES ESBL = EXTENDED SPECTRUM BETA-LACTAMASE TFG = THYMIDINE-DEPENDENT STRAIN JACK = BETA-LACTAMASE POSITIVE IB = INDUCIBLE BETA-LACTAMASE. APPEARS IN PLACE OF 'S' WITH SPECIES KNOWN TO POSSESS INDUCIBLE BETA-LACTAMASES. POTENTIALLY THEY MAY BECOME RESISTANT TO ALL B-LACTAM DRUGS. PERFORMED BY: [facility] [address] [place] [address] PATHOLOGIST HAT PARTS CUTTER MACHINE TIM FOOTE M.D. Normal [facility] Comment on above: Performed By: #### A ERC #### [facility] [address] Aerobic cultureOrdered By: Al Blum on 03-02-2025 Bacteria identified Aer cx Nom (Unsp spec) Serratia marcescens Abnormal [facility] Gram stain microscopyOrdered By: Terence Blum on 03-02-2025 Microscopic observation Gram stain Nom (Unsp spec) [facility] [place] 03-02-2025 L - -------- Specimen: [id number] Received: 03/05/25 Status: BAIRON Marvin Num: [id number] Spec Type: Surgical Subm Dr: Terence Blum MD Tissues: A Pilonidal Cyst (PRODUCT OF DEBRIDEMENT) Procedures: GEE/Twan, Gross/Micro L3 -------- Age/ Patient Sex Location Account Attending Physician -------- Ariadna Haley 44/F [place] [id number] Terence Blum MD -------- SPEC NUM: [id number] RECD: 03/05/25 STATUS: BAIRON MARVIN NUM: [id number] EDITA: 03/02/[address]: Terence Blum MD ENTERED: 03/05/25 [facility] DR: DANIELLA TYPE: Surgical DEPT: S ENTERED BY: [id number] RECV BY: [id number] ORDERED: HE/2, Gross/Micro L3 ORDERED: HE/2, Gross/Micro L3 Pathological Diagnosis Pilonidal cyst, excision: Histopathologic features consistent with a pilonidal cyst. Clinical Information Pilonidal cyst Gross Description Part A is received in formalin labeled with the patients date of , and Tera, products of debridement are 2 saini-rivera, wrinkled, non-oriented ellipses of skin, 0.3 x 1.1 cm, and 0.2 x 1.2 cm. The longer ellipse is inked blue with the shorter ellipse inked black. Sectioning reveals saini-rivera, dull and uniform cut surfaces. The polar tips are submitted intact in A1 with the bisected center of each specimen submitted in A2. (2, ns, [id number]) CPT Codes 69893 -------- -------- Specimen: [id number] Received: 03/05/25 Status: BAIORN Marvin Num: [id number] Spec Type: Surgical Subm Dr: Terence Blum MD Tissues: A Pilonidal Cyst (PRODUCT OF DEBRIDEMENT) Procedures: HE/2, Gross/Micro L3 -------- Patient: Ariadna Haley [id number] (Continued) -------- Signed (signature on file) Merry Grajeda MD 03/06/25 [address] Normal [facility] Urine Cultureon 02-26-2025 Bacteria identified Cx Nom (U) 20,000 colonies/ml mixed bacterial skin contaminants including mixed gram negative bacilli - 2 Days PERFORMED BY: [facility] [place] [address] PATHOLOGIST HAT PARTS CUTTER MACHINE TIM FOOTE M.D. Normal [facility] Physician [facility] Comment on above: Performed By: #### C UU #### [facility] [address] Urine cultureOrdered By: Abilio Ji on 02-26-2025 Bacteria identified Cx Nom (U) bacilli - 2 Days [facility] CBC W Auto Differential pane l (Bld)on 02-21-2025 Basophils (Bld) [#/Vol] 0.09 10*3/uL Normal <0.11 [facility] Comment on above: Order Comment: Speci men Type: BLOOD SPECIMENOrdering Facility: [facility] Address: [address] [place] [address] Performed By: #### 5 7021-8 ####[facility] LABCLIA [id number] [place] [address] Basophils/100 WBC (Bld) 0.7 % Normal [facility] Comment on above: Order Comment: Speci men Type: BLOOD SPECIMENOrdering Facility: [facility] Address: [address] [place] [address] Performed By: #### 5 7021-8 ####[facility] LABCLIA [id number] [place] [address] Differential cell count method Nom (Bld) Auto Normal [facility] Comment on above: Order Comment: Speci men Type: BLOOD SPECIMENOrdering Facility: [facility] Address: [address] [place] [address] Performed By: #### 5 7021-8 ####[facility] LABCLIA [id number] [place] [address] Eosinophils (Bld) [#/Vol] 0.11 10*3/uL Normal <0.46 [facility] Comment on above: Order Comment: Speci men Type: BLOOD SPECIMENOrdering Facility: [facility] Address: [address] [place] [address] Performed By: #### 5 7021-8 ####[facility] LABCLIA [id number] [place] [address] Eosinophils/100 WBC (Bld) 0.8 % Normal [facility] Comment on above: Order Comment: Speci men Type: BLOOD SPECIMENOrdering Facility: [facility] Address: [address] [place] [address] Performed By: #### 5 7021-8 ####[facility] LABCLIA [id number] [place] [address] Erythrocyte distribution width (RBC) [Ratio] 14.3 % Normal 11.5-15.0 [facility] Comment on above: Order Comment: Speci men Type: BLOOD SPECIMENOrdering Facility: [facility] Address: [address] [place] [address] Performed By: #### 5 7021-8 ####[facility] LABCLIA [id number] [place] [address] Hematocrit (Bld) [Volume fraction] 46.0 % Normal 36.0-46.0 [facility] Comment on above: Order Comment: Speci men Type: BLOOD SPECIMENOrdering Facility: [facility] Address: [address] [place] [address] Performed By: #### 5 7021-8 ####[facility] LABIA [id number] [place] [address] Hemoglobin (Bld) [Mass/Vol] 15.1 g/dL Normal 11.5-15.5 [facility] Comment on above: Order Comment: Speci men Type: BLOOD SPECIMENOrdering Facility: [facility] Address: [address] [place] [address] Performed By: #### 5 7021-8 ####[facility] LABCLIA [id number] [place] [address] Immature granulocytes (Bld) [#/Vol] 0.21 10*3/uL High <0.10 [facility] Comment on above: Order Comment: Speci men Type: BLOOD SPECIMENOrdering Facility: [facility] Address: [address] [place] [address] Performed By: #### 5 7021-8 ####[facility] LABCLIA [id number] [place] [address] Immature granulocytes/100 WBC (Bld) 1.6 % Normal [facility] Comment on above: Order Comment: Speci men Type: BLOOD SPECIMENOrdering Facility: [facility] Address: [address] [place] [address] Performed By: #### 5 7021-8 ####[facility] LABCLIA [id number] [place] [address] Lymphocytes (Bld) [#/Vol] 1.89 10*3/uL Normal 1.00-4.00 [facility] Comment on above: Order Comment: Speci men Type: BLOOD SPECIMENOrdering Facility: [facility] Address: [address] [place] [address] Performed By: #### 5 7021-8 ####[facility] LABCLIA [id number] [place] [address] Lymphocytes/100 WBC (Bld) 14.4 % Normal [facility] Comment on above: Order Comment: Speci men Type: BLOOD SPECIMENOrdering Facility: [facility] Address: [address] [place] [address] Performed By: #### 5 7021-8 ####[facility] LABCLIA [id number] [place] [address] MCH (RBC) [Entitic mass] 31.7 pg Normal 26.0-34.0 [facility] Comment on above: Order Comment: Speci men Type: BLOOD SPECIMENOrdering Facility: [facility] Address: [address] [place] [address] Performed By: #### 5 7021-8 ####[facility] LABIA [id number] [place] [address] MCHC (RBC) [Mass/Vol] 32.8 g/dL Normal 30.5-36.0 [facility] Comment on above: Order Comment: Speci men Type: BLOOD SPECIMENOrdering Facility: [facility] Address: [address] [place] [address] Performed By: #### 5 7021-8 ####[facility] LABCLIA [id number] [place] [address] MCV (RBC) [Entitic vol] 96.4 fL Normal 80.0-100.0 [facility] Comment on above: Order Comment: Speci men Type: BLOOD SPECIMENOrdering Facility: [facility] Address: [address] [place] [address] Performed By: #### 5 7021-8 ####[facility] LABCLIA [id number] [place] [address] Monocytes (Bld) [#/Vol] 0.92 10*3/uL High <0.87 [facility] Comment on above: Order Comment: Speci men Type: BLOOD SPECIMENOrdering Facility: [facility] Address: [address] [place] [address] Performed By: #### 5 7021-8 ####[facility] LABIA [id number] [place] [address] Monocytes/100 WBC (Bld) 7.0 % Normal [facility] Comment on above: Order Comment: Speci men Type: BLOOD SPECIMENOrdering Facility: [facility] Address: [address] [place] [address] Performed By: #### 5 7021-8 ####[facility] LABCLIA [id number] [place] [address] Neutrophils (Bld) [#/Vol] 9.94 10*3/uL High 1.45-7.50 [facility] Comment on above: Order Comment: Speci men Type: BLOOD SPECIMENOrdering Facility: [facility] Address: [address] [place], [place] [address] Performed By: #### 5 7021-8 ####[facility] LABCLIA [id number] [place] [address] Neutrophils/100 WBC (Bld) 75.5 % Normal [facility] Comment on above: Order Comment: Speci men Type: BLOOD SPECIMENOrdering Facility: [facility] Address: [address] [place] [address] Performed By: #### 5 7021-8 ####[facility] LABCLIA [id number] [place] [address] Nucleated RBC (Bld) [#/Vol] 10*3/uL Normal <0.01 [facility] Comment on above: Order Comment: Speci men Type: BLOOD SPECIMENOrdering Facility: [facility] Address: [address] [place] [address] Performed By: #### 5 7021-8 ####[facility] LABCLIA [id number] [place] [address] Nucleated RBC/100 WBC (Bld) [Ratio] 0.0 /100 WBC Normal [facility] Comment on above: Order Comment: Speci men Type: BLOOD SPECIMENOrdering Facility: [facility] Address: [address] [place] [address] Performed By: #### 5 7021-8 ####[facility] LABCLIA [id number] [place] [address] Platelet mean volume (Bld) [Entitic vol] 9.9 fL Normal 9.0-12.7 [facility] Comment on above: Order Comment: Speci men Type: BLOOD SPECIMENOrdering Facility: [facility] Address: [address] [place] [address] Performed By: #### 5 7021-8 ####[facility] LABCLIA [id number] [place] [address] Platelets (Bld) [#/Vol] 305 10*3/uL Normal 150-400 [facility] Comment on above: Order Comment: Speci men Type: BLOOD SPECIMENOrdering Facility: [facility] Address: [address] [place] [address] Performed By: #### 5 7021-8 ####[facility] LABCLIA [id number] [place] [address] RBC (Bld) [#/Vol] 4.77 10*6/uL Normal 3.90-5.20 [facility] Comment on above: Order Comment: Speci men Type: BLOOD SPECIMENOrdering Facility: [facility] Address: [address] [place] [address] Performed By: #### 5 7021-8 ####[facility] LABCLIA [id number] [place] [address] WBC (Bld) [#/Vol] 13.16 10*3/uL High 3.70-11.00 [facility] Comment on above: Order Comment: Speci men Type: BLOOD SPECIMENOrdering Facility: [facility] Address: [address] [place] [address] Performed By: #### 5 7021-8 ####[facility] LABCLIA [id number] [place] [address] CNOVSPon 02-21-2025 CNOVSP Normal [facility] CNPNon 02-21-2025 CNPN Normal [facility] Comprehensive metabolic 2000 panelon 02-21-2025 Albumin [Mass/Vol] 4.3 g/dL Normal 3.9-4.9 [facility] Comment on above: Order Comment: Speci men Type: BLOOD SPECIMENOrdering Facility: [facility] Address: [address] [place] [address] Performed By: #### 2 4323-8 ####[facility] LABCLIA [id number] [place] [address] ALP [Catalytic activity/Vol] 83 U/L Normal 34-123 [facility] Comment on above: Order Comment: Speci men Type: BLOOD SPECIMENOrdering Facility: [facility] Address: [address] [place] [address] Performed By: #### 2 4323-8 ####[facility] LABCLIA [id number] [place] [address] ALT [Catalytic activity/Vol] 49 U/L High 7-38 [facility] Comment on above: Order Comment: Speci men Type: BLOOD SPECIMENOrdering Facility: [facility] Address: [address] [place] [address] Performed By: #### 2 4323-8 ####[facility] LABCLIA [id number] [place] [address] Anion gap [Moles/Vol] 17 mmol/L High 8-15 [facility] Comment on above: Order Comment: Speci men Type: BLOOD SPECIMENOrdering Facility: [facility] Address: [address] [place] [address] Performed By: #### 2 4323-8 ####[facility] LABCLIA [id number] [place] [address] AST [Catalytic activity/Vol] 20 U/L Normal 13-35 [facility] Comment on above: Order Comment: Speci men Type: BLOOD SPECIMENOrdering Facility: [facility] Address: [address] [place] [address] Performed By: #### 2 4323-8 ####[facility] LABCLIA [id number] [place] [address] Bilirubin [Mass/Vol] 0.3 mg/dL Normal 0.2-1.3 [facility] Comment on above: Order Comment: Speci men Type: BLOOD SPECIMENOrdering Facility: [facility] Address: [address] [place], [place] [address] Performed By: #### 2 4323-8 ####[facility] LABCLIA [id number] [place] [address] Calcium [Mass/Vol] 10.2 mg/dL Normal 8.5-10.2 [facility] Comment on above: Order Comment: Speci men Type: BLOOD SPECIMENOrdering Facility: [facility] Address: [address] [place] [address] Performed By: #### 2 4323-8 ####[facility] LABCLIA [id number] [place] [address] Chloride [Moles/Vol] 101 mmol/L Normal 98-107 [facility] Comment on above: Order Comment: Speci men Type: BLOOD SPECIMENOrdering Facility: [facility] Address: [address] [place] [address] Performed By: #### 2 4323-8 ####[facility] LABCLIA [id number] [place] [address] CO2 [Moles/Vol] 20 mmol/L Low 22-30 [facility] Comment on above: Order Comment: Speci men Type: BLOOD SPECIMENOrdering Facility: [facility] Address: [address] [place] [address] Performed By: #### 2 4323-8 ####[facility] LABCLIA [id number] [place] [address] Creatinine [Mass/Vol] 0.49 mg/dL Low 0.58-0.96 [facility] Comment on above: Order Comment: Speci men Type: BLOOD SPECIMENOrdering Facility: [facility] Address: [address] [place] [address] Performed By: #### 2 4323-8 ####[facility] LABCLIA [id number] [place] [address] eGFRcr SerPlBld CKD-EPI 2020 119 mL/min/1.73m??? Normal >=60 [facility] Comment on above: Order Comment: Speci men Type: BLOOD SPECIMENOrdering Facility: [facility] Address: [address] [place] [address] Result Comment: Erin mated Glomerular Filtration Rate [...] #### 2 4323-8 ####[facility] LABCLIA [id number] [place] [address] Glucose [Mass/Vol] 248 mg/dL High 74-99 [facility] Comment on above: Order Comment: Semaj men Type: BLOOD SPECIMENOrdering Facility: [facility] Address: [address] [place] [address] Result Comment: The [place] Diabetes Association (ADA) provides guidance for [...] Standards of Medical Care in Diabetes 2016, [place] [employer] Association. Diabetes Care. 2016.39(Suppl 1). Performed By: #### 2 4323-8 ####[facility] LABCLIA [id number] [place] [address] Potassium [Moles/Vol] 4.1 mmol/L Normal 3.7-5.1 [facility] Comment on above: Order Comment: Semaj cortés Type: BLOOD SPECIMENOrdering Facility: [facility] Address: [address] [place] [address] Performed By: #### 2 4323-8 ####[facility] LABCLIA [id number] [place] [address] Protein [Mass/Vol] 7.6 g/dL Normal 6.3-8.0 [facility] Comment on above: Order Comment: Semaj men Type: BLOOD SPECIMENOrdering Facility: [facility] Address: [address] [place] [address] Performed By: #### 2 4323-8 ####[facility] LABCLIA [id number] [place] [address] Sodium [Moles/Vol] 138 mmol/L Normal 136-144 [facility] Comment on above: Order Comment: Speci men Type: BLOOD SPECIMENOrdering Facility: [facility] Address: [address] [place] [address] Performed By: #### 2 4323-8 ####[facility] LABCLIA [id number] [place] [address] Urea nitrogen [Mass/Vol] 16 mg/dL Normal 7-21 [facility] Comment on above: Order Comment: Speci men Type: BLOOD SPECIMENOrdering Facility: [facility] Address: [address] [place] [address] Performed By: #### 2 4323-8 ####[facility] LABCLIA [id number] [place] [address] Ferritin SerPl-mCncon 2024 Ferritin [Mass/Vol] 83.6 ng/mL Normal 14.7-205.1 [facility] Comment on above: Order Comment: Speci men Type: BLOOD SPECIMENOrdering Facility: [facility] Address: [address] [place] [address] Performed By: #### 5 0190-8, 2284-8, 2132-9, 2276-4 ####[facility] LABCLIA [id number] [place] [address] [place] Folate SerPl-mCncon 02-22-20 25 Folate [Mass/Vol] ng/mL Normal >4.7 [facility] Comment on above: Order Comment: Speci men Type: BLOOD SPECIMENOrdering Facility: [facility] Address: [address] [place] [address] Result Comment: A re sult of > 20 ng/mL is not necessarily indicative of a pathologic or treatable condition: it reflects a limitation of the test methodology.Assay reference range: 4.8 to 24.2 ng/mL. Suitable for detection of folate deficiency.Reference:Folate III (Folate III) [package insert V 1.0 [place]]. [facility], [place], [place]: March 2015. Performed By: #### 5 0190-8, 2284-8, 2132-9, 2276-4 ####[facility] LABCLIA [id number] [place] [address] [place] IMMUNOGLOBULINS,IGG,IGA,IGMo n 02-21-2025 IgA [Mass/Vol] 184 mg/dL Normal 70-400 [facility] Comment on above: Order Comment: Speci men Type: BLOOD SPECIMENOrdering Facility: [facility] Address: [address] [place] [address] Performed By: #### S ERIMM ####[facility] LABCLIA [id number] [place] [address] [place] IgG [Mass/Vol] 610 mg/dL Low 700-1600 [facility] Comment on above: Order Comment: Speci men Type: BLOOD SPECIMENOrdering Facility: [facility] Address: [address] [place] [address] Performed By: #### S ERIMM ####[facility] LABCLIA [id number] [place] [address] [place] IgM [Mass/Vol] 454 mg/dL High 40-230 [facility] Comment on above: Order Comment: Speci men Type: BLOOD SPECIMENOrdering Facility: [facility] Address: [address] [place] [address] Performed By: #### S ERIMM ####[facility] LABIA [id number] [place] [id number] [place] Iron and Iron binding capaci ty panelon 02-21-2025 Iron [Mass/Vol] 156 ug/dL Normal 41-186 [facility] Comment on above: Order Comment: Speci men Type: BLOOD SPECIMENOrdering Facility: [facility] Address: [address] [place], [place] [address] Performed By: #### 5 0190-8, 2283-8, 2132-01, 2275-08 ####[facility] LABCLIA [id number] [address] [address] [place] Iron binding capacity [Mass/Vol] 443 ug/dL High 232-386 [facility] Comment on above: Order Comment: Speci men Type: BLOOD SPECIMENOrdering Facility: [facility] Address: [address] [place] [address] Performed By: #### 5 0190-8, 2283-8, 2132-01, 2275-08 ####[facility] LABIA [id number] [place] [address] [place] Iron/TIBC [Molar ratio] 35.2 % Normal 15.0-57.0 [facility] Comment on above: Order Comment: Speci men Type: BLOOD SPECIMENOrdering Facility: [facility] Address: [address] [place] [address] Performed By: #### 5 0190-8, 2283-8, 2132-01, 2275-08 ####[facility] LABIA [id number] [address] [address] [place] Vit B12 [facility] 10-01-2 025 Cobalamin (Vitamin B12) [Mass/Vol] 694 pg/mL Normal 232-1245 [facility] Comment on above: Order Comment: Speci men Type: BLOOD SPECIMENOrdering Facility: [facility] Address: [address] [place], [place] [address] Performed By: #### 5 0190-8, 8, 2132-01, 2275-08 ####[facility] LABIA [id number] [address] [address] [place] CNPNon 02-12-2025 CNPN Normal [facility] HCG ( test) IA.rapi d Ql (U)Ordered By: Adolfotobi Kang on 01-31-2025 HCG ( test) Ql (U) Negative [facility] HCG,Urineon 01-31-2025 Beta HCG ( test) Ql (U) Negative Normal [facility] Comment on above: Result Comment: PERF ORMED BY: [facility] [address] [place] [id number] PATHOLOGIST [employer] MACHINE TIM FOOTE M.D. Performed By: #### U HCG #### [facility] [address] [place] [id number] [facility] BI US BREAST LIMITED LEFTon [...] Normal Not Available CNPDede 01-18-2025 CNPN Normal [facility] 25(OH)D3 SerPl-mCncon 2024 25-hydroxyvitamin D3 [Mass/Vol] 32.2 ng/mL Normal 31.0-80.0 [facility] Comment on above: Order Comment: Speci men Type: BLOOD SPECIMENOrdering Facility: [facility] Address: [address] [place] [address] Performed By: #### 1 989-3 ####[facility]CL[facility] [id number] [address] [facility] BLOOD TB SCREENon 01-11-2025 M. tuberculosis tuberculin stim IFN-g Ql (Bld) Negative Normal [facility] Comment on above: Order Comment: Speci men Type: BLOOD SPECIMENOrdering Facility: [facility] Address: [address] [place] [address] Performed By: #### I NFTBP ####[facility] LABCLIA [id number] [place] [address] [place] MITOGEN MINUS NIL >9.97 Normal >=0.50 [facility] Comment on above: Order Comment: Speci men Type: BLOOD SPECIMENOrdering Facility: [facility] Address: [address] [place] [address] Performed By: #### I NFTBP ####[facility]CL[facility] [id number] [address] [place] TB GAMMA INTERPRETATION Normal [facility] Comment on above: Order Comment: Speci men Type: BLOOD SPECIMENOrdering Facility: [facility] Address: [address] [place] [address] Performed By: #### I NFTBP ####[facility]CLIA [id number] [address] [place] TB NIL 0.03 IU/mL Normal <=8.00 [facility] Comment on above: Order Comment: Speci men Type: BLOOD SPECIMENOrdering Facility: [facility] Address: [address] [place] [address] Performed By: #### I NFTBP ####[facility]CL[facility] [id number] [address] [place] TB1 AG MINUS NIL 0.01 IU/mL Normal <0.[address] [facility] Comment on above: Order Comment: Speci men Type: BLOOD SPECIMENOrdering Facility: [facility] Address: [address] [place] [address] Performed By: #### I NFTBP ####[facility]CLIA [id number] [address] TB2 AG MINUS NIL 0.01 IU/mL Normal <0.[address] [facility] Comment on above: Order Comment: Speci men Type: BLOOD SPECIMENOrdering Facility: [facility] Address: [address] [place] [address] Performed By: #### I NFTBP ####[facility]CLIA [id number] [address] CBC panel Auto (Bld)on 01-11 Erythrocyte distribution width (RBC) [Ratio] 14.5 % 11.5 - 15.0 % [facility] Hematocrit (Bld) [Volume fraction] 41.5 % 36.0 - 46.0 % [facility] Hemoglobin (Bld) [Mass/Vol] 13.8 g/dL 11.5 - 15.5 g/dL [facility] Interpretation and review of laboratory results Abnormal [facility] MCH (RBC) [Entitic mass] 32.2 pg 26.0 - 34.0 pg [facility] MCHC (RBC) [Mass/Vol] 33.3 g/dL 30.5 - 36.0 g/dL [facility] MCV (RBC) [Entitic vol] 96.7 fL 80.0 - 100.0 fL [facility] Nucleated RBC (Bld) [#/Vol] NINF [facility] Platelet mean volume (Bld) [Entitic vol] 10.6 fL 9.0 - 12.7 fL [facility] Platelets (Bld) [#/Vol] 265 10*3/uL [facility] RBC (Bld) [#/Vol] 4.29 10*6/uL 3.90 - 5.2 0 m/uL [facility] WBC (Bld) [#/Vol] 12.61 10*3/uL [facility] Erythrocyte distribution width (RBC) [Ratio] 14.5 % Normal 11.5-15.0 [facility] Comment on above: Order Comment: Speci men Type: BLOOD SPECIMENOrdering Facility: [facility] Address: [address] [place] [address] Performed By: #### 5 8410-2 ####[facility] LABCLIA [id number] [place] [address] Hematocrit (Bld) [Volume fraction] 41.5 % Normal 36.0-46.0 [facility] Comment on above: Order Comment: Speci men Type: BLOOD SPECIMENOrdering Facility: [facility] Address: [address] [place] [address] Performed By: #### 5 8410-2 ####[facility] LABCLIA [id number] [place] [address] Hemoglobin (Bld) [Mass/Vol] 13.8 g/dL Normal 11.5-15.5 [facility] Comment on above: Order Comment: Speci men Type: BLOOD SPECIMENOrdering Facility: [facility] Address: [address] [place] [address] Performed By: #### 5 8410-2 ####[facility] LABCLIA [id number] [place] [address] MCH (RBC) [Entitic mass] 32.2 pg Normal 26.0-34.0 [facility] Comment on above: Order Comment: Speci men Type: BLOOD SPECIMENOrdering Facility: [facility] Address: [address] [place] [address] Performed By: #### 5 8410-2 ####[facility] LABCLIA [id number] [place] [address] MCHC (RBC) [Mass/Vol] 33.3 g/dL Normal 30.5-36.0 [facility] Comment on above: Order Comment: Speci men Type: BLOOD SPECIMENOrdering Facility: [facility] Address: [address] [place] [address] Performed By: #### 5 8410-2 ####[facility] LABCLIA [id number] [place] [address] MCV (RBC) [Entitic vol] 96.7 fL Normal 80.0-100.0 [facility] Comment on above: Order Comment: Speci men Type: BLOOD SPECIMENOrdering Facility: [facility] Address: [address] [place] [address] Performed By: #### 5 8410-2 ####[facility] LABCLIA [id number] [place] [address] Nucleated RBC (Bld) [#/Vol] 10*3/uL Normal <0.01 [facility] Comment on above: Order Comment: Speci men Type: BLOOD SPECIMENOrdering Facility: [facility] Address: [address] [place] [address] Performed By: #### 5 8410-2 ####[facility] LABCLIA [id number] [place] [address] Platelet mean volume (Bld) [Entitic vol] 10.6 fL Normal 9.0-12.7 [facility] Comment on above: Order Comment: Speci men Type: BLOOD SPECIMENOrdering Facility: [facility] Address: [address] [place] [address] Performed By: #### 5 8410-2 ####[facility] LABIA [id number] [place] [address] Platelets (Bld) [#/Vol] 265 10*3/uL Normal 150-400 [facility] Comment on above: Order Comment: Speci men Type: BLOOD SPECIMENOrdering Facility: [facility] Address: [address] [place] [address] Performed By: #### 5 8410-2 ####[facility] LABCLIA [id number] [place] [address] RBC (Bld) [#/Vol] 4.29 10*6/uL Normal 3.90-5.20 [facility] Comment on above: Order Comment: Speci men Type: BLOOD SPECIMENOrdering Facility: [facility] Address: [address] [place] [address] Performed By: #### 5 8410-2 ####[facility] LABCLIA [id number] [place] [address] WBC (Bld) [#/Vol] 12.61 10*3/uL High 3.70-11.00 [facility] Comment on above: Order Comment: Speci men Type: BLOOD SPECIMENOrdering Facility: [facility] Address: [address] [place] [address] Performed By: #### 5 8410-2 ####[facility] LABCLIA [id number] [place] [address] CRP [facility] CRP [Mass/Vol] mg/L Normal <0.9 [facility] Comment on above: Order Comment: Speci men Type: BLOOD SPECIMENOrdering Facility: [facility] Address: [address] [place] [address] Performed By: #### 1 988-5, 2132-9 ####[facility]CLIA [id number] [place] [id number] [place] Comprehensive metabolic 2000 panelOrdered By: Josse Merlos on 01-11-2025 Albumin [Mass/Vol] 3.9 g/dL 3.9 - 4.9 g/dL [facility] ALP [Catalytic activity/Vol] 83 U/L 34 - 123 U/L [facility] ALT [Catalytic activity/Vol] 42 U/L High 7 - 38 U/L [facility] Anion gap [Moles/Vol] 10 mmol/L 8 - 15 mmol/L [facility] AST [Catalytic activity/Vol] 22 U/L 13 - 35 U/L [facility] Bilirubin [Mass/Vol] 0.2 mg/dL 0.2 - 1 .3 mg/dL [facility] Calcium [Mass/Vol] 9.7 mg/dL 8.5 - 10. 2 mg/dL [facility] Chloride [Moles/Vol] 103 mmol/L 98 - 10 7 mmol/L [facility] CO2 [Moles/Vol] 23 mmol/L 22 - 30 mmol/L [facility] Creatinine [Mass/Vol] 0.50 mg/dL Low 0.58 - 0.96 mg/dL [facility] GFR/1.73 sq M.predicted among non-blacks MDRD (S/P/Bld) [Vol rate/Area] 119 mL/min/{1.73_m2} - PINF [facility] Comment on above: Estimated Glomerular Filtration [...] 221 mg/dL High 74 - 99 mg/dL [facility] Comment on above: The [place] Diab[place] Association (ADA) provides guidance for [...] Standards of Medical Care in Diabetes 2016, [place] [employer]. Diabetes Care. 2016.39(Suppl 1). Interpretation and review of laboratory results Abnormal [facility] Potassium [Moles/Vol] 4.1 mmol/L 3.7 - 5.1 mmol/L [facility] Protein [Mass/Vol] 6.8 g/dL 6.3 - 8.0 g/dL [facility] Sodium [Moles/Vol] 136 mmol/L 136 - 144 mmol/L [facility] Urea nitrogen [Mass/Vol] 15 mg/dL 7 - 21 mg/dL [facility] Comprehensive metabolic 2000 panelon 01-11-2025 Albumin [Mass/Vol] 3.9 g/dL Normal 3.9-4.9 [facility] Comment on above: Order Comment: Speci men Type: BLOOD SPECIMENOrdering Facility: [facility] Address: [address] [place] [address] Performed By: #### 2 4323-8 ####[facility] LABCLIA [id number] [place] [address] ALP [Catalytic activity/Vol] 83 U/L Normal 34-123 [facility] Comment on above: Order Comment: Speci men Type: BLOOD SPECIMENOrdering Facility: [facility] Address: [address] [place] [address] Performed By: #### 2 4323-8 ####[facility] LABCLIA [id number] [place] [address] ALT [Catalytic activity/Vol] 42 U/L High 7-38 [facility] Comment on above: Order Comment: Speci men Type: BLOOD SPECIMENOrdering Facility: [facility] Address: [address] [place] [address] Performed By: #### 2 4323-8 ####[facility] LABCLIA [id number] [place] [address] Anion gap [Moles/Vol] 10 mmol/L Normal 8-15 [facility] Comment on above: Order Comment: Speci men Type: BLOOD SPECIMENOrdering Facility: [facility] Address: [address] [place] [address] Performed By: #### 2 4323-8 ####[facility] [facility] [id number] [place] [address] AST [Catalytic activity/Vol] 22 U/L Normal 13-35 [facility] Comment on above: Order Comment: Speci men Type: BLOOD SPECIMENOrdering Facility: [facility] Address: [address] [place] [address] Performed By: #### 2 4323-8 ####[facility]CLIA [id number] [place] [address] Bilirubin [Mass/Vol] 0.2 mg/dL Normal 0.2-1.3 [facility] Comment on above: Order Comment: Speci men Type: BLOOD SPECIMENOrdering Facility: [facility] Address: [address] [place] [address] Performed By: #### 2 4323-8 ####[facility]CLIA [id number] [place] [address] Calcium [Mass/Vol] 9.7 mg/dL Normal 8.5-10.2 [facility] Comment on above: Order Comment: Speci men Type: BLOOD SPECIMENOrdering Facility: [facility] Address: [address] [place] [address] Performed By: #### 2 4323-8 ####[facility]CL[facility] [id number] [place] [address] Chloride [Moles/Vol] 103 mmol/L Normal 98-107 [facility] Comment on above: Order Comment: Speci men Type: BLOOD SPECIMENOrdering Facility: [facility] Address: [address] [place] [address] Performed By: #### 2 4323-8 ####[facility]CLIA [id number] [place] [address] CO2 [Moles/Vol] 23 mmol/L Normal 22-30 [facility] Comment on above: Order Comment: Speci men Type: BLOOD SPECIMENOrdering Facility: [facility] Address: [address] [place] [address] Performed By: #### 2 4323-8 ####[facility]CL[facility] [id number] [place] [address] Creatinine [Mass/Vol] 0.50 mg/dL Low 0.58-0.96 [facility] Comment on above: Order Comment: Semaj cortés Type: BLOOD SPECIMENOrdering Facility: [facility] Address: [address] [place] [address] Performed By: #### 2 4323-8 ####[facility]CLIA [id number] [place] [address] eGFRcr SerPlBld CKD-EPI 2020 119 mL/min/1.73m??? Normal >=60 [facility] Comment on above: Order Comment: Semaj cortés Type: BLOOD SPECIMENOrdering Facility: [facility] Address: [address] [place] [address] Result Comment: Erin mated Glomerular Filtration Rate [...] #### 2 4323-8 ####[facility] [id number] [place] [address] Glucose [Mass/Vol] 221 mg/dL High 74-99 [facility] Comment on above: Order Comment: Semaj cortés Type: BLOOD SPECIMENOrdering Facility: [facility] Address: [address] [place] [address] Result Comment: The [place] [employer] Association (ADA) provides guidance for [...] Standards of Medical Care in Diabetes 2016, [place] [employer]. Diabetes Care. 2016.39(Suppl 1). Performed By: #### 2 4323-8 ####[facility]CL[facility] [id number] [place] [address] Potassium [Moles/Vol] 4.1 mmol/L Normal 3.7-5.1 [facility] Comment on above: Order Comment: Speci men Type: BLOOD SPECIMENOrdering Facility: [facility] Address: [address] [place] [address] Performed By: #### 2 4323-8 ####[facility] [id number] [place] [address] Protein [Mass/Vol] 6.8 g/dL Normal 6.3-8.0 [facility] Comment on above: Order Comment: Speci men Type: BLOOD SPECIMENOrdering Facility: [facility] Address: [address] [place] [address] Performed By: #### 2 4323-8 ####[facility] [id number] [place] [address] Sodium [Moles/Vol] 136 mmol/L Normal 136-144 [facility] Comment on above: Order Comment: Speci men Type: BLOOD SPECIMENOrdering Facility: [facility] Address: [address] [place] [address] Performed By: #### 2 4323-8 ####[facility] [id number] [place] [address] Urea nitrogen [Mass/Vol] 15 mg/dL Normal 7-21 [facility] Comment on above: Order Comment: Speci men Type: BLOOD SPECIMENOrdering Facility: [facility] Address: [address] [place] [address] Performed By: #### 2 4323-8 ####[facility] [id number] [place] [address] ESR Westergren method (Bld) [Velocity]on 01-11-2025 ESR (Bld) [Velocity] 34 mm/h High 0-20 [facility] Comment on above: Order Comment: Speci men Type: BLOOD SPECIMENOrdering Facility: [facility] Address: [address] [place] [address] Performed By: #### 4 537-7 ####[facility] [id number] [place] [id number] [place] HBV core Ab Ser Qlon 025 HBV core Ab Ql (S) Negative Normal Negative [facility] Comment on above: Order Comment: Speci men Type: BLOOD SPECIMENOrdering Facility: [facility] Address: [address] [place] [address] Result Comment: No e vidence of current or past infection with Hepatitis B virus. Should recent infection be suspected, repeat testing may be considered 3-4 weeks after this draw. Performed By: #### 5 195-3, 78006-7, 93732-8 ####[facility] [id number] [address] [place] HBV surface Ab Ql (S)on 12-23 HBV surface Ab Qn (S) 177.77 mIU/mL Normal [facility] Comment on above: Order Comment: Speci men Type: BLOOD SPECIMENOrdering Facility: [facility] Address: [address] [place] [address] Result Comment: <8 m IU/mL: No serological evidence of immunity to Hepatitis B Virus.>/= 8 to <12 mIU/mL: No serological evidence of immunity to Hepatitis B Virus.>/= 12 mIU/mL: Consistent with serological evidence of immunity to Hepatitis B Virus. Performed By: #### 5 195-3, 80143-6, 39401-6 ####[facility] [id number] [place] [id number] [facility] [place] HBV surface Ab Ser Qlon 12-23 HBV surface Ab Ql (S) Positive Normal [facility] Comment on above: Order Comment: Speci men Type: BLOOD SPECIMENOrdering Facility: [facility] Address: [address] [place] [address] Result Comment: Cons istent with serological evidence of immunity to Hepatitis B Virus. Performed By: #### 5 195-3, 45220-9, 40203-1 ####[facility] [id number] [place] [address] [place] HBV surface Ag Ser Qlon 12-23 HBV surface Ag Ql (S) Negative Normal Negative [facility] Comment on above: Order Comment: Speci men Type: BLOOD SPECIMENOrdering Facility: [facility] Address: [address] [place] [address] Performed By: #### 5 195-3, 48469-8, 94088-6 ####[facility] [id number] [place] [address] [place] HCV Ab Ser Qlon 01-11-2025 HCV Ab Ql (S) Negative Normal Negative [facility] Comment on above: Order Comment: Speci men Type: BLOOD SPECIMENOrdering Facility: [facility] Address: [address] [place] [address] Result Comment: The result suggests no evidence of infection with Hepatitis C virus. Should recent infection be suspected, repeat testing may be considered 4-6 weeks after this draw. Performed By: #### 1 6128-1 ####[facility] [id number] [place] [id number] [place] Vit B12 SerPl-mCncon 025 Cobalamin (Vitamin B12) [Mass/Vol] 710 pg/mL Normal 232-1245 [facility] Comment on above: Order Comment: Speci men Type: BLOOD SPECIMENOrdering Facility: [facility] Address: [address] [place] [address] Performed By: #### 1 988-5, 2132-9 ####[facility] [id number] [place] [address] [place] CBC W Auto Differential pane l (Bld)on 11-29-2024 Basophils (Bld) [#/Vol] 0.09 10*3/uL Normal <0.11 [facility] Comment on above: Order Comment: Speci men Type: BLOOD SPECIMENOrdering Facility: [facility] Address: [address] [place] [address] Performed By: #### 5 7021-8 ####[facility] [id number] [place] [address] Basophils/100 WBC (Bld) 0.7 % Normal [facility] Comment on above: Order Comment: Speci men Type: BLOOD SPECIMENOrdering Facility: [facility] Address: [address] [place] [address] Performed By: #### 5 7021-8 ####[facility] [id number] [place] [address] Differential cell count method Nom (Bld) Auto Normal [facility] Comment on above: Order Comment: Speci men Type: BLOOD SPECIMENOrdering Facility: [facility] Address: [address] [place] [address] Performed By: #### 5 7021-8 ####[facility]CL[facility] [id number] [place] [address] Eosinophils (Bld) [#/Vol] 0.09 10*3/uL Normal <0.46 [facility] Comment on above: Order Comment: Speci men Type: BLOOD SPECIMENOrdering Facility: [facility] Address: [address] [place] [address] Performed By: #### 5 7021-8 ####[facility] [id number] [place] [address] Eosinophils/100 WBC (Bld) 0.7 % Normal [facility] Comment on above: Order Comment: Speci men Type: BLOOD SPECIMENOrdering Facility: [facility] Address: [address] [place] [address] Performed By: #### 5 7021-8 ####[facility]CL[facility] [id number] [place] [address] Erythrocyte distribution width (RBC) [Ratio] 14.8 % Normal 11.5-15.0 [facility] Comment on above: Order Comment: Speci men Type: BLOOD SPECIMENOrdering Facility: [facility] Address: [address] [place] [address] Performed By: #### 5 7021-8 ####[facility]CL[facility] [id number] [place] [address] Hematocrit (Bld) [Volume fraction] 42.9 % Normal 36.0-46.0 [facility] Comment on above: Order Comment: Speci men Type: BLOOD SPECIMENOrdering Facility: [facility] Address: [address] [place] [address] Performed By: #### 5 7021-8 ####[facility]IA [id number] [place] [address] Hemoglobin (Bld) [Mass/Vol] 14.0 g/dL Normal 11.5-15.5 [facility] Comment on above: Order Comment: Speci men Type: BLOOD SPECIMENOrdering Facility: [facility] Address: [address] [place] [address] Performed By: #### 5 7021-8 ####[facility]IA [id number] [place] [address] Immature granulocytes (Bld) [#/Vol] 0.18 10*3/uL High <0.10 [facility] Comment on above: Order Comment: Speci men Type: BLOOD SPECIMENOrdering Facility: [facility] Address: [address] [place] [address] Performed By: #### 5 7021-8 ####[facility]CL[facility] [id number] [place] [address] Immature granulocytes/100 WBC (Bld) 1.5 % Normal [facility] Comment on above: Order Comment: Speci men Type: BLOOD SPECIMENOrdering Facility: [facility] Address: [address] [place] [address] Performed By: #### 5 7021-8 ####[facility]CL[facility] [id number] [place] [address] Lymphocytes (Bld) [#/Vol] 1.99 10*3/uL Normal 1.00-4.00 [facility] Comment on above: Order Comment: Speci men Type: BLOOD SPECIMENOrdering Facility: [facility] Address: [address] [place] [address] Performed By: #### 5 7021-8 ####[facility]CL[facility] [id number] [place] [address] Lymphocytes/100 WBC (Bld) 16.4 % Normal [facility] Comment on above: Order Comment: Speci men Type: BLOOD SPECIMENOrdering Facility: [facility] Address: [address] [place] [address] Performed By: #### 5 7021-8 ####[facility]CL[facility] [id number] [place] [address] MCH (RBC) [Entitic mass] 31.7 pg Normal 26.0-34.0 [facility] Comment on above: Order Comment: Speci men Type: BLOOD SPECIMENOrdering Facility: [facility] Address: [address] [place] [address] Performed By: #### 5 7021-8 ####[facility]IA [id number] [place] [address] MCHC (RBC) [Mass/Vol] 32.6 g/dL Normal 30.5-36.0 [facility] Comment on above: Order Comment: Speci men Type: BLOOD SPECIMENOrdering Facility: [facility] Address: [address] [place] [address] Performed By: #### 5 7021-8 ####[facility]CL[facility] [id number] [place] [address] MCV (RBC) [Entitic vol] 97.1 fL Normal 80.0-100.0 [facility] Comment on above: Order Comment: Speci men Type: BLOOD SPECIMENOrdering Facility: [facility] Address: [address] [place] [address] Performed By: #### 5 7021-8 ####[facility]CLIA [id number] [place] [address] Monocytes (Bld) [#/Vol] 0.67 10*3/uL Normal <0.87 [facility] Comment on above: Order Comment: Speci men Type: BLOOD SPECIMENOrdering Facility: [facility] Address: [address] [place] [address] Performed By: #### 5 7021-8 ####[facility]CLIA [id number] [place] [address] Monocytes/100 WBC (Bld) 5.5 % Normal [facility] Comment on above: Order Comment: Speci men Type: BLOOD SPECIMENOrdering Facility: [facility] Address: [address] [place] [address] Performed By: #### 5 7021-8 ####[facility]CLIA [id number] [place] [address] Neutrophils (Bld) [#/Vol] 9.15 10*3/uL High 1.45-7.50 [facility] Comment on above: Order Comment: Speci men Type: BLOOD SPECIMENOrdering Facility: [facility] Address: [address] [place] [address] Performed By: #### 5 7021-8 ####[facility]CLIA [id number] [place] [address] Neutrophils/100 WBC (Bld) 75.2 % Normal [facility] Comment on above: Order Comment: Speci men Type: BLOOD SPECIMENOrdering Facility: [facility] Address: [address] [place] [address] Performed By: #### 5 7021-8 ####[facility]CL[facility] [id number] [place] [address] Nucleated RBC (Bld) [#/Vol] 10*3/uL Normal <0.01 [facility] Comment on above: Order Comment: Speci men Type: BLOOD SPECIMENOrdering Facility: [facility] Address: [address] [place] [address] Performed By: #### 5 7021-8 ####[facility]CLIA [id number] [place] [address] Nucleated RBC/100 WBC (Bld) [Ratio] 0.0 /100 WBC Normal [facility] Comment on above: Order Comment: Speci men Type: BLOOD SPECIMENOrdering Facility: [facility] Address: [address] [place] [address] Performed By: #### 5 7021-8 ####[facility]CLIA [id number] [place] [address] Platelet mean volume (Bld) [Entitic vol] 9.7 fL Normal 9.0-12.7 [facility] Comment on above: Order Comment: Speci men Type: BLOOD SPECIMENOrdering Facility: [facility] Address: [address] [place] [address] Performed By: #### 5 7021-8 ####[facility]CLIA [id number] [place] [address] Platelets (Bld) [#/Vol] 281 10*3/uL Normal 150-400 [facility] Comment on above: Order Comment: Speci men Type: BLOOD SPECIMENOrdering Facility: [facility] Address: [address] [place] [address] Performed By: #### 5 7021-8 ####[facility]CLIA [id number] [place] [address] RBC (Bld) [#/Vol] 4.42 10*6/uL Normal 3.90-5.20 [facility] Comment on above: Order Comment: Speci men Type: BLOOD SPECIMENOrdering Facility: [facility] Address: [address] [place] [address] Performed By: #### 5 7021-8 ####[facility] LABIA [id number] [place] [address] WBC (Bld) [#/Vol] 12.17 10*3/uL High 3.70-11.00 [facility] Comment on above: Order Comment: Speci men Type: BLOOD SPECIMENOrdering Facility: [facility] Address: [address] [place] [address] Performed By: #### 5 7021-8 ####[facility]CLIA [id number] [place] [address] CNOVSPon 11-29-2024 CNOVSP Normal [facility] Comprehensive metabolic 2000 panelon 11-29-2024 Albumin [Mass/Vol] 4.1 g/dL Normal 3.9-4.9 [facility] Comment on above: Order Comment: Speci men Type: BLOOD SPECIMENOrdering Facility: [facility] Address: [address] [place] [address] Performed By: #### 2 4323-8 ####[facility]CLIA [id number] [place] [address] ALP [Catalytic activity/Vol] 61 U/L Normal 34-123 [facility] Comment on above: Order Comment: Speci men Type: BLOOD SPECIMENOrdering Facility: [facility] Address: [address] [place] [address] Performed By: #### 2 4323-8 ####[facility]CLIA [id number] [place] [address] ALT [Catalytic activity/Vol] 39 U/L High 7-38 [facility] Comment on above: Order Comment: Speci men Type: BLOOD SPECIMENOrdering Facility: [facility] Address: [address] [place] [address] Performed By: #### 2 4323-8 ####[facility]CLIA [id number] [place] [address] Anion gap [Moles/Vol] 13 mmol/L Normal 8-15 [facility] Comment on above: Order Comment: Speci men Type: BLOOD SPECIMENOrdering Facility: [facility] Address: [address] [place] [address] Performed By: #### 2 4323-8 ####[facility]CLIA [id number] [place] [address] AST [Catalytic activity/Vol] 16 U/L Normal 13-35 [facility] Comment on above: Order Comment: Speci men Type: BLOOD SPECIMENOrdering Facility: [facility] Address: [address] [place] [address] Performed By: #### 2 4323-8 ####[facility]CL[facility] [id number] [place] [address] Bilirubin [Mass/Vol] 0.2 mg/dL Normal 0.2-1.3 [facility] Comment on above: Order Comment: Speci men Type: BLOOD SPECIMENOrdering Facility: [facility] Address: [address] [place] [address] Performed By: #### 2 4323-8 ####[facility]CLIA [id number] [place] [address] Calcium [Mass/Vol] 9.7 mg/dL Normal 8.5-10.2 [facility] Comment on above: Order Comment: Speci men Type: BLOOD SPECIMENOrdering Facility: [facility] Address: [address] [place] [address] Performed By: #### 2 4323-8 ####[facility]CLIA [id number] [place] [address] Chloride [Moles/Vol] 102 mmol/L Normal 98-107 [facility] Comment on above: Order Comment: Speci men Type: BLOOD SPECIMENOrdering Facility: [facility] Address: [address] [place] [address] Performed By: #### 2 4323-8 ####[facility]CL[facility] [id number] [place] [address] CO2 [Moles/Vol] 23 mmol/L Normal 22-30 [facility] Comment on above: Order Comment: Speci men Type: BLOOD SPECIMENOrdering Facility: [facility] Address: [address] [place] [address] Performed By: #### 2 4323-8 ####[facility]CLIA [id number] [place] [address] Creatinine [Mass/Vol] 0.58 mg/dL Normal 0.58-0.96 [facility] Comment on above: Order Comment: Speci men Type: BLOOD SPECIMENOrdering Facility: [facility] Address: [address] [place] [address] Performed By: #### 2 4323-8 ####[facility]CL[facility] [id number] [place] [address] Creatinine and Glomerular filtration rate.predicted panel (S/P/Bld) 115 mL/min/1.73m??? Normal >=60 [facility] Comment on above: Order Comment: Speci men Type: BLOOD SPECIMENOrdering Facility: [facility] Address: [address] [place] [address] Result Comment: Erin mated Glomerular Filtration Rate [...] #### 2 4323-8 ####[facility]CL[facility] [id number] [place] [address] Glucose [Mass/Vol] 233 mg/dL High 74-99 [facility] Comment on above: Order Comment: Semaj cortés Type: BLOOD SPECIMENOrdering Facility: [facility] Address: [address] [place] [address] Result Comment: The [place] [employer] (ADA) provides guidance for [...] Standards of Medical Care in Diabetes 2016, [place] [employer]. Diabetes Care. 2016.39(Suppl 1). Performed By: #### 2 4323-8 ####[facility]CL[facility] [id number] [place] [address] Potassium [Moles/Vol] 4.0 mmol/L Normal 3.7-5.1 [facility] Comment on above: Order Comment: Semaj cortés Type: BLOOD SPECIMENOrdering Facility: [facility] Address: [address] [place] [address] Performed By: #### 2 4323-8 ####[facility]CL[facility] [id number] [place] [address] Protein [Mass/Vol] 7.0 g/dL Normal 6.3-8.0 [facility] Comment on above: Order Comment: Semaj cortés Type: BLOOD SPECIMENOrdering Facility: [facility] Address: [address] [place] [address] Performed By: #### 2 4323-8 ####[facility]CL[facility] [id number] [place] [address] Sodium [Moles/Vol] 138 mmol/L Normal 136-144 [facility] Comment on above: Order Comment: Speci men Type: BLOOD SPECIMENOrdering Facility: [facility] Address: [address] [place] [address] Performed By: #### 2 4323-8 ####[facility] [id number] [place] [address] Urea nitrogen [Mass/Vol] 16 mg/dL Normal 7-21 [facility] Comment on above: Order Comment: Speci men Type: BLOOD SPECIMENOrdering Facility: [facility] Address: [address] [place] [address] Performed By: #### 2 4323-8 ####[facility] [id number] [place] [address] Ferritin SerPl-mCncon 2024 Ferritin [Mass/Vol] 63.6 ng/mL Normal 14.7-205.1 [facility] Comment on above: Order Comment: Speci men Type: BLOOD SPECIMENOrdering Facility: [facility] Address: [address] [place] [address] Performed By: #### 2 284-8, 16752-6, 2276-4, 2132-9 ####[facility] [id number] [place] [address] [place] Folate SerPl-mCncon 11-30-19 25 Folate [Mass/Vol] ng/mL Normal >4.7 [facility] Comment on above: Order Comment: Speci men Type: BLOOD SPECIMENOrdering Facility: [facility] Address: [address] [place] [address] Result Comment: A re sult of > 20 ng/mL is not necessarily indicative of a pathologic or treatable condition: it reflects a limitation of the test methodology.Assay reference range: 4.8 to 24.2 ng/mL. Suitable for detection of folate deficiency.Reference:Folate III (Folate III) [package insert V 1.0 [place]]. [facility], [place], [place]: March 2015. Performed By: #### 2 284-8, 15257-8, 2276-4, 2132-9 ####[facility] [id number] [place] [address] [place] IMMUNOGLOBULINS,IGG,IGA,IGMo n 11-29-2024 IgA [Mass/Vol] 169 mg/dL Normal 70-400 [facility] Comment on above: Order Comment: Speci men Type: BLOOD SPECIMENOrdering Facility: [facility] Address: [address] [place] [address] Performed By: #### S ERIMM ####[facility] [id number] [place] [address] [place] IgG [Mass/Vol] 596 mg/dL Low 700-1600 [facility] Comment on above: Order Comment: Speci men Type: BLOOD SPECIMENOrdering Facility: [facility] Address: [address] [place] [address] Performed By: #### S ERIMM ####[facility] [id number] [address] [place] IgM [Mass/Vol] 410 mg/dL High 40-230 [facility] Comment on above: Order Comment: Speci men Type: BLOOD SPECIMENOrdering Facility: [facility] Address: [address] [place] [address] Performed By: #### S ERIMM ####[facility] [id number] [place] [id number] [place] Iron and Iron binding capaci ty panelon 11-29-2024 Iron [Mass/Vol] 154 ug/dL Normal 41-186 [facility] Comment on above: Order Comment: Speci men Type: BLOOD SPECIMENOrdering Facility: [facility] Address: [address] [id number] Performed By: #### 2 284-8, 03463-5, 2275-4, 9 ####[facility] [id number] [place] [id number] [place] Iron binding capacity [Mass/Vol] 363 ug/dL Normal 232-386 [facility] Comment on above: Order Comment: Speci men Type: BLOOD SPECIMENOrdering Facility: [facility] Address: [address] [place] [address] Performed By: #### 2 284-8, 79941-6, 2275-4, 9 ####[facility] [id number] [place] [address] [place] Iron/TIBC [Molar ratio] 42.4 % Normal 15.0-57.0 [facility] Comment on above: Order Comment: Speci men Type: BLOOD SPECIMENOrdering Facility: [facility] Address: [address] [place] [address] Performed By: #### 2 284-8, 23173-5, 6-4, 9 ####[facility] [id number] [place] [id number] [place] Vit B12 [facility] 09-2 025 Cobalamin (Vitamin B12) [Mass/Vol] 775 pg/mL Normal 232-1245 [facility] Comment on above: Order Comment: Speci men Type: BLOOD SPECIMENOrdering Facility: [facility] Address: [address] [place] [address] Performed By: #### 2 284-8, 80194-8, 2275-4, 9 ####[facility] [id number] [place] [id number] [place] CNPNon 11-20-2024 CNPN Normal [facility] CNPNon 11-15-2024 CNPN Normal [facility] CNPNon 10-06-2024 CNPN Normal [facility] 25(OH)D3 SerPl-mCncon 2024 25-hydroxyvitamin D3 [Mass/Vol] 30.9 ng/mL Low 31.0-80.0 [facility] Comment on above: Order Comment: Speci men Type: BLOOD SPECIMENOrdering Facility: [facility] Address: [address] [place] [address] Result Comment: Clas sification of 25 [place] Vitamin D status:Deficiency/Insufficiency: < or = 30 ng/ml.Sufficiency/Optimal Levels: 31-80 ng/mLToxicity: > 100 ng/mL.Test performed by chemiluminescent immunoassay. Performed By: #### 1 989-3 ####[facility] [id number] [place] [address] [place] 25-hydroxyvitamin D3 [Mass/V ol]on 10-02-2024 Interpretation and review of laboratory results Abnormal [facility] The reference range interval was based on an analysis of samples from healthy adults and may not pertain to children from 0-18 years old. [facility] C-REACTIVE PROTEINon 025 CRP [Mass/Vol] mg/dL NINF - 0.9 mg/dL [facility] CBC panel Auto (Bld)on 10-02 Erythrocyte distribution width (RBC) [Ratio] 16.2 % High 11.5 - 15.0 % [facility] Hematocrit (Bld) [Volume fraction] 41.3 % 36.0 - 46.0 % [facility] Hemoglobin (Bld) [Mass/Vol] 13.7 g/dL 11.5 - 15.5 g/dL [facility] Interpretation and review of laboratory results Abnormal [facility] MCH (RBC) [Entitic mass] 31.1 pg 26.0 - 34.0 pg [facility] MCHC (RBC) [Mass/Vol] 33.2 g/dL 30.5 - 36.0 g/dL [facility] MCV (RBC) [Entitic vol] 93.7 fL 80.0 - 100.0 fL [facility] Nucleated RBC (Bld) [#/Vol] NINF [facility] Platelet mean volume (Bld) [Entitic vol] 10.1 fL 9.0 - 12.7 fL [facility] Platelets (Bld) [#/Vol] 265 10*3/uL [facility] RBC (Bld) [#/Vol] 4.41 10*6/uL 3.90 - 5.2 0 m/uL [facility] WBC (Bld) [#/Vol] 10.07 10*3/uL [facility] Erythrocyte distribution width (RBC) [Ratio] 16.2 % High 11.5-15.0 [facility] Comment on above: Order Comment: Speci men Type: BLOOD SPECIMENOrdering Facility: [facility] Address: [address] [place] [address] Performed By: #### 5 8410-2 ####[facility] LABIA [id number] [place] [address] Hematocrit (Bld) [Volume fraction] 41.3 % Normal 36.0-46.0 [facility] Comment on above: Order Comment: Speci men Type: BLOOD SPECIMENOrdering Facility: [facility] Address: [address] [place] [address] Performed By: #### 5 8410-2 ####[facility] LABIA [id number] [place] [address] Hemoglobin (Bld) [Mass/Vol] 13.7 g/dL Normal 11.5-15.5 [facility] Comment on above: Order Comment: Speci men Type: BLOOD SPECIMENOrdering Facility: [facility] Address: [address] [place] [address] Performed By: #### 5 8410-2 ####[facility] LABCLIA [id number] [place] [address] MCH (RBC) [Entitic mass] 31.1 pg Normal 26.0-34.0 [facility] Comment on above: Order Comment: Speci men Type: BLOOD SPECIMENOrdering Facility: [facility] Address: [address] [place] [address] Performed By: #### 5 8410-2 ####[facility] LABCLIA [id number] [place] [address] MCHC (RBC) [Mass/Vol] 33.2 g/dL Normal 30.5-36.0 [facility] Comment on above: Order Comment: Speci men Type: BLOOD SPECIMENOrdering Facility: [facility] Address: [address] [place] [address] Performed By: #### 5 8410-2 ####[facility] LABCLIA [id number] [place] [address] MCV (RBC) [Entitic vol] 93.7 fL Normal 80.0-100.0 [facility] Comment on above: Order Comment: Speci men Type: BLOOD SPECIMENOrdering Facility: [facility] Address: [address] [place] [address] Performed By: #### 5 8410-2 ####[facility] LABCLIA [id number] [place] [address] Nucleated RBC (Bld) [#/Vol] 10*3/uL Normal <0.01 [facility] Comment on above: Order Comment: Speci men Type: BLOOD SPECIMENOrdering Facility: [facility] Address: [address] [place] [address] Performed By: #### 5 8410-2 ####[facility] LABCLIA [id number] [place] [address] Platelet mean volume (Bld) [Entitic vol] 10.1 fL Normal 9.0-12.7 [facility] Comment on above: Order Comment: Speci men Type: BLOOD SPECIMENOrdering Facility: [facility] Address: [address] [place] [address] Performed By: #### 5 8410-2 ####[facility] LABCLIA [id number] [place] [address] Platelets (Bld) [#/Vol] 265 10*3/uL Normal 150-400 [facility] Comment on above: Order Comment: Speci men Type: BLOOD SPECIMENOrdering Facility: [facility] Address: [address] [place] [address] Performed By: #### 5 8410-2 ####[facility] LABCLIA [id number] [place] [address] RBC (Bld) [#/Vol] 4.41 10*6/uL Normal 3.90-5.20 [facility] Comment on above: Order Comment: Speci men Type: BLOOD SPECIMENOrdering Facility: [facility] Address: [address] [place] [address] Performed By: #### 5 8410-2 ####[facility] [id number] [place] [address] WBC (Bld) [#/Vol] 10.07 10*3/uL Normal 3.70-11.00 [facility] Comment on above: Order Comment: Speci men Type: BLOOD SPECIMENOrdering Facility: [facility] Address: [address] [place] [address] Performed By: #### 5 8410-2 ####[facility] LABCLIA [id number] [place] [address] CRP SerPl-ncon 10-02-2024 CRP [Mass/Vol] mg/L Normal <0.9 [facility] Comment on above: Order Comment: Speci men Type: BLOOD SPECIMENOrdering Facility: [facility] Address: [address] [place] [address] Performed By: #### 1 988-5 ####[facility] [id number] [place] [address] [place] CRP [Mass/Vol]on 10-02-2024 Interpretation and review of laboratory results Normal [facility] Comprehensive metabolic 2000 panelOrdered By: Josse Merlos on 10-02-2024 Albumin [Mass/Vol] 3.9 g/dL 3.9 - 4.9 g/dL [facility] ALP [Catalytic activity/Vol] 61 U/L 34 - 123 U/L [facility] ALT [Catalytic activity/Vol] 41 U/L High 7 - 38 U/L [facility] Anion gap [Moles/Vol] 14 mmol/L 8 - 15 mmol/L [facility] AST [Catalytic activity/Vol] 18 U/L 13 - 35 U/L [facility] Bilirubin [Mass/Vol] 0.2 mg/dL 0.2 - 1 .3 mg/dL [facility] Calcium [Mass/Vol] 9.6 mg/dL 8.5 - 10. 2 mg/dL [facility] Chloride [Moles/Vol] 107 mmol/L 98 - 10 7 mmol/L [facility] CO2 [Moles/Vol] 20 mmol/L Low 22 - 30 mmol/L [facility] Creatinine [Mass/Vol] 0.59 mg/dL 0.58 - 0.96 mg/dL [facility] GFR/1.73 sq M.predicted among non-blacks MDRD (S/P/Bld) [Vol rate/Area] 115 mL/min/{1.73_m2} - PINF [facility] Comment on above: Estimated Glomerular Filtration [...] 216 mg/dL High 74 - 99 mg/dL [facility] Comment on above: The [place] Diabete s Association (ADA) provides guidance for [...] Standards of Medical Care in Diabetes 2016, [place] [employer]. Diabetes Care. 2016.39(Suppl 1). Interpretation and review of laboratory results Abnormal [facility] Potassium [Moles/Vol] 4.1 mmol/L 3.7 - 5.1 mmol/L [facility] Protein [Mass/Vol] 6.8 g/dL 6.3 - 8.0 g/dL [facility] Sodium [Moles/Vol] 141 mmol/L 136 - 144 mmol/L [facility] Urea nitrogen [Mass/Vol] 19 mg/dL 7 - 21 mg/dL [facility] Comprehensive metabolic 2000 panelon 10-02-2024 Albumin [Mass/Vol] 3.9 g/dL Normal 3.9-4.9 [facility] Comment on above: Order Comment: Speci men Type: BLOOD SPECIMENOrdering Facility: [facility] Address: [address] [place] [address] Performed By: #### 2 4323-8 ####[facility] LABCLIA [id number] [place] [address] ALP [Catalytic activity/Vol] 61 U/L Normal 34-123 [facility] Comment on above: Order Comment: Speci men Type: BLOOD SPECIMENOrdering Facility: [facility] Address: [address] [place] [address] Performed By: #### 2 4323-8 ####[facility] LABCLIA [id number] [place] [address] ALT [Catalytic activity/Vol] 41 U/L High 7-38 [facility] Comment on above: Order Comment: Speci men Type: BLOOD SPECIMENOrdering Facility: [facility] Address: [address] [place] [address] Performed By: #### 2 4323-8 ####[facility] LABCLIA [id number] [place] [address] Anion gap [Moles/Vol] 14 mmol/L Normal 8-15 [facility] Comment on above: Order Comment: Speci men Type: BLOOD SPECIMENOrdering Facility: [facility] Address: [address] [place] [address] Performed By: #### 2 4323-8 ####[facility] LABCLIA [id number] [place] [address] AST [Catalytic activity/Vol] 18 U/L Normal 13-35 [facility] Comment on above: Order Comment: Speci men Type: BLOOD SPECIMENOrdering Facility: [facility] Address: [address] [place] [address] Performed By: #### 2 4323-8 ####[facility] LABCLIA [id number] [place] [address] Bilirubin [Mass/Vol] 0.2 mg/dL Normal 0.2-1.3 [facility] Comment on above: Order Comment: Speci men Type: BLOOD SPECIMENOrdering Facility: [facility] Address: [address] [place] [address] Performed By: #### 2 4323-8 ####[facility] LABCLIA [id number] [place] [address] Calcium [Mass/Vol] 9.6 mg/dL Normal 8.5-10.2 [facility] Comment on above: Order Comment: Speci men Type: BLOOD SPECIMENOrdering Facility: [facility] Address: [address] [place] [address] Performed By: #### 2 4323-8 ####[facility] LABCLIA [id number] [place] [address] Chloride [Moles/Vol] 107 mmol/L Normal 98-107 [facility] Comment on above: Order Comment: Speci men Type: BLOOD SPECIMENOrdering Facility: [facility] Address: [address] [place] [address] Performed By: #### 2 4323-8 ####[facility] LABCLIA [id number] [place] [address] CO2 [Moles/Vol] 20 mmol/L Low 22-30 [facility] Comment on above: Order Comment: Speci men Type: BLOOD SPECIMENOrdering Facility: [facility] Address: [address] [place] [address] Performed By: #### 2 4323-8 ####[facility] LABCLIA [id number] [place] [address] Creatinine [Mass/Vol] 0.59 mg/dL Normal 0.58-0.96 [facility] Comment on above: Order Comment: Semaj men Type: BLOOD SPECIMENOrdering Facility: [facility] Address: [address] [place] [address] Performed By: #### 2 4323-8 ####[facility] LABCLIA [id number] [place] [address] Creatinine and Glomerular filtration rate.predicted panel (S/P/Bld) 115 mL/min/1.73m??? Normal >=60 [facility] Comment on above: Order Comment: Semaj cortés Type: BLOOD SPECIMENOrdering Facility: [facility] Address: [address] [place] [address] Result Comment: Erin mated Glomerular Filtration Rate [...] #### 2 4323-8 ####[facility] LABIA [id number] [place] [address] Glucose [Mass/Vol] 216 mg/dL High 74-99 [facility] Comment on above: Order Comment: Semaj cortés Type: BLOOD SPECIMENOrdering Facility: [facility] Address: [address] [place], [place] [address] Result Comment: The [place] Diabetes Association (ADA) provides guidance for [...] Standards of Medical Care in Diabetes 2016, [place] [employer]. Diabetes Care. 2016.39(Suppl 1). Performed By: #### 2 4323-8 ####[facility] LABCLIA [id number] [place] [address] Potassium [Moles/Vol] 4.1 mmol/L Normal 3.7-5.1 [facility] Comment on above: Order Comment: Speci men Type: BLOOD SPECIMENOrdering Facility: [facility] Address: [address] [place] [address] Performed By: #### 2 4323-8 ####[facility] LABCLIA [id number] [place] [address] Protein [Mass/Vol] 6.8 g/dL Normal 6.3-8.0 [facility] Comment on above: Order Comment: Speci men Type: BLOOD SPECIMENOrdering Facility: [facility] Address: [address] [place] [address] Performed By: #### 2 4323-8 ####[facility] LABCLIA [id number] [place] [address] Sodium [Moles/Vol] 141 mmol/L Normal 136-144 [facility] Comment on above: Order Comment: Speci men Type: BLOOD SPECIMENOrdering Facility: [facility] Address: [address] [place] [address] Performed By: #### 2 4323-8 ####[facility] LABCLIA [id number] [place] [address] Urea nitrogen [Mass/Vol] 19 mg/dL Normal 7-21 [facility] Comment on above: Order Comment: Speci men Type: BLOOD SPECIMENOrdering Facility: [facility] Address: [address] [place], [place] [address] Performed By: #### 2 4323-8 ####[facility] LABCLIA [id number] [place] [address] ESR Westergren method (Bld) [Velocity]on 10-02-2024 ESR (Bld) [Velocity] 28 mm/h High [facility] Interpretation and review of laboratory results Abnormal [facility] ESR (Bld) [Velocity] 28 mm/h High 0-20 [facility] Comment on above: Order Comment: Speci men Type: BLOOD SPECIMENOrdering Facility: [facility] Address: [address] [place], [place] [address] Performed By: #### 4 537-7 ####[facility] [id number] [place] [id number] [place] VITAMIN D 25 HYDROXYon 10-02 25-hydroxyvitamin D3 [Mass/Vol] 30.9 ng/mL Low 31.0 - 80.0 ng/mL [facility] Comment on above: Classification of 25 [place] Vitamin D status: Deficiency/Insufficiency: < or = 30 ng/ml. Sufficiency/Optimal Levels: 31-80 ng/mL Toxicity: > 100 ng/mL. Test performed by chemiluminescent immunoassay. DNA EXTRACTION BLOODOrdered By: Dominga Araujo on 09-20-2024 CONCENTRATION (NG/UL) 189.3 ng/ul [facility] Total Yield 94.65 ug [facility] Comment on above: Specimens will be av ailable for 3 years from date of collection. To order testing on this specimen for [facility] patients, please place an [facility] order for DNA and RNA for Clinical Testing (SQNUCADD). To order for patients outside of the [facility] system, please request DNA and RNA for Clinical Testing, order code [email or web address]. If additional paperwork is required for testing, please email completed forms to . VOLUME (UL) OF DNA 500 uL [facility] CNOVon 09-19-2024 CNOV Normal [facility] DNA EXTRACTION BLOODon 09-19 CONCENTRATION (NG/UL) 189.3 ng/ul Normal [facility] Comment on above: Order Comment: Speci men Type: BLOOD SPECIMENOrdering Facility: [facility] Address: [address] [place] [address] Performed By: #### N UCBLD ####[facility] LIMSCLIA [id number] [place] [address] [place] TOTAL YIELD 94.65 ug Normal [facility] Comment on above: Order Comment: Speci men Type: BLOOD SPECIMENOrdering Facility: [facility] Address: [address] [place] [address] Result Comment: Spec imens will be available for 3 years from date of collection. To order testing on this specimen for [facility] patients, please place an [facility] order for DNA and RNA for Clinical Testing (SQNUCADD). To order for patients outside of the [facility] system, please request DNA and RNA for Clinical Testing, order code [email or web address].If additional paperwork is required for testing, please email completed forms to . Performed By: #### N UCBLD ####[facility] LIM[facility]CL[facility] [id number] [place] [address] [place] VOLUME (UL) OF DNA 500 uL Normal [facility] Comment on above: Order Comment: Speci men Type: BLOOD SPECIMENOrdering Facility: [facility] Address: [address] [place] [address] Performed By: #### N UCBLD ####[facility]CL[facility] [id number] [place] [address] [place] CNPNon 09-18-2024 CNPN Normal [facility] CNPNon 09-13-2024 CNPN Normal [facility] CNOVSPon 09-06-2024 CNOVSP Normal [facility] CNPNon 09-06-2024 CNPN Normal [facility] IMMUNOGLOBULINS,IGG,IGA,IGMo n 09-06-2024 IgA [Mass/Vol] 163 mg/dL Normal 70-400 [facility] Comment on above: Order Comment: Speci men Type: BLOOD SPECIMENOrdering Facility: [facility] Address: [address] [place] [address] Performed By: #### S ERIMM ####[facility] [id number] [place] [address] [place] IgG [Mass/Vol] 599 mg/dL Low 700-1600 [facility] Comment on above: Order Comment: Speci men Type: BLOOD SPECIMENOrdering Facility: [facility] Address: [address] [place] [address] Performed By: #### S ERIMM ####[facility] [id number] [place] [address] [place] IgM [Mass/Vol] 387 mg/dL High 40-230 [facility] Comment on above: Order Comment: Speci men Type: BLOOD SPECIMENOrdering Facility: [facility] Address: [address] [place] [address] Performed By: #### S ERIMM ####[facility] [id number] [place] [address] [place] Laboratory - Chemistry and C hemistry - challengeon 09-06-2024 IgA [Mass/Vol] 163 mg/dL 70 - 400 mg/dL [facility] IgG [Mass/Vol] 599 mg/dL Low 700 - 1600 mg/dL [facility] IgM [Mass/Vol] 387 mg/dL High 40 - 230 mg/dL [facility] No Panel Informationon 09-06 Interpretation and review of laboratory results Abnormal [facility] CBC W Auto Differential pane l (Bld)on 08-29-2024 Basophils (Bld) [#/Vol] 0.06 10*3/uL Normal <0.11 [facility] Comment on above: Order Comment: Speci men Type: BLOOD SPECIMENOrdering Facility: [facility] Address: [address] [place] [address] Performed By: #### 5 7021-8 ####[facility] LABCLIA [id number] [place] [address] Basophils/100 WBC (Bld) 0.5 % Normal [facility] Comment on above: Order Comment: Speci men Type: BLOOD SPECIMENOrdering Facility: [facility] Address: [address] [place] [address] Performed By: #### 5 7021-8 ####[facility] LABCLIA [id number] [place] [address] Differential cell count method Nom (Bld) Auto Normal [facility] Comment on above: Order Comment: Speci men Type: BLOOD SPECIMENOrdering Facility: [facility] Address: [address] [place] [address] Performed By: #### 5 7021-8 ####[facility] LABCLIA [id number] [place] [address] Eosinophils (Bld) [#/Vol] 0.08 10*3/uL Normal <0.46 [facility] Comment on above: Order Comment: Speci men Type: BLOOD SPECIMENOrdering Facility: [facility] Address: [address] [place] [address] Performed By: #### 5 7021-8 ####[facility] LABCLIA [id number] [place] [address] Eosinophils/100 WBC (Bld) 0.6 % Normal [facility] Comment on above: Order Comment: Speci men Type: BLOOD SPECIMENOrdering Facility: [facility] Address: [address] [place] [address] Performed By: #### 5 7021-8 ####[facility] LABIA [id number] [place] [address] Erythrocyte distribution width (RBC) [Ratio] 16.0 % High 11.5-15.0 [facility] Comment on above: Order Comment: Speci men Type: BLOOD SPECIMENOrdering Facility: [facility] Address: [address] [place] [address] Performed By: #### 5 7021-8 ####[facility] LABCLIA [id number] [place] [address] Hematocrit (Bld) [Volume fraction] 42.9 % Normal 36.0-46.0 [facility] Comment on above: Order Comment: Speci men Type: BLOOD SPECIMENOrdering Facility: [facility] Address: [address] [place] [address] Performed By: #### 5 7021-8 ####[facility] LABCLIA [id number] [place] [address] Hemoglobin (Bld) [Mass/Vol] 13.8 g/dL Normal 11.5-15.5 [facility] Comment on above: Order Comment: Speci men Type: BLOOD SPECIMENOrdering Facility: [facility] Address: [address] [place] [address] Performed By: #### 5 7021-8 ####[facility] LABCLIA [id number] [place] [address] Immature granulocytes (Bld) [#/Vol] 0.23 10*3/uL High <0.10 [facility] Comment on above: Order Comment: Speci men Type: BLOOD SPECIMENOrdering Facility: [facility] Address: [address] [place] [address] Performed By: #### 5 7021-8 ####[facility] LABCLIA [id number] [place] [address] Immature granulocytes/100 WBC (Bld) 1.8 % Normal [facility] Comment on above: Order Comment: Speci men Type: BLOOD SPECIMENOrdering Facility: [facility] Address: [address] [place] [address] Performed By: #### 5 7021-8 ####[facility] LABCLIA [id number] [place] [address] Lymphocytes (Bld) [#/Vol] 2.07 10*3/uL Normal 1.00-4.00 [facility] Comment on above: Order Comment: Speci men Type: BLOOD SPECIMENOrdering Facility: [facility] Address: [address] [place] [address] Performed By: #### 5 7021-8 ####[facility] LABCLIA [id number] [place] [address] Lymphocytes/100 WBC (Bld) 15.8 % Normal [facility] Comment on above: Order Comment: Speci men Type: BLOOD SPECIMENOrdering Facility: [facility] Address: [address] [place] [address] Performed By: #### 5 7021-8 ####[facility] LABCLIA [id number] [place] [address] MCH (RBC) [Entitic mass] 30.2 pg Normal 26.0-34.0 [facility] Comment on above: Order Comment: Speci men Type: BLOOD SPECIMENOrdering Facility: [facility] Address: [address] [place] [address] Performed By: #### 5 7021-8 ####[facility] LABCLIA [id number] [place] [address] MCHC (RBC) [Mass/Vol] 32.2 g/dL Normal 30.5-36.0 [facility] Comment on above: Order Comment: Speci men Type: BLOOD SPECIMENOrdering Facility: [facility] Address: [address] [place] [address] Performed By: #### 5 7021-8 ####[facility] LABCLIA [id number] [place] [address] MCV (RBC) [Entitic vol] 93.9 fL Normal 80.0-100.0 [facility] Comment on above: Order Comment: Speci men Type: BLOOD SPECIMENOrdering Facility: [facility] Address: [address] [place] [address] Performed By: #### 5 7021-8 ####[facility] LABCLIA [id number] [place] [address] Monocytes (Bld) [#/Vol] 0.86 10*3/uL Normal <0.87 [facility] Comment on above: Order Comment: Speci men Type: BLOOD SPECIMENOrdering Facility: [facility] Address: [address] [place] [address] Performed By: #### 5 7021-8 ####[facility] LABCLIA [id number] [place] [address] Monocytes/100 WBC (Bld) 6.6 % Normal [facility] Comment on above: Order Comment: Speci men Type: BLOOD SPECIMENOrdering Facility: [facility] Address: [address] [place] [address] Performed By: #### 5 7021-8 ####[facility] LABCLIA [id number] [place] [address] Neutrophils (Bld) [#/Vol] 9.82 10*3/uL High 1.45-7.50 [facility] Comment on above: Order Comment: Speci men Type: BLOOD SPECIMENOrdering Facility: [facility] Address: [address] [place] [address] Performed By: #### 5 7021-8 ####[facility] LABCLIA [id number] [place] [address] Neutrophils/100 WBC (Bld) 74.7 % Normal [facility] Comment on above: Order Comment: Speci men Type: BLOOD SPECIMENOrdering Facility: [facility] Address: [address] [place] [address] Performed By: #### 5 7021-8 ####[facility] LABIA [id number] [place] [address] Nucleated RBC (Bld) [#/Vol] 10*3/uL Normal <0.01 [facility] Comment on above: Order Comment: Speci men Type: BLOOD SPECIMENOrdering Facility: [facility] Address: [address] [place] [address] Performed By: #### 5 7021-8 ####[facility] LABCLIA [id number] [place] [address] Nucleated RBC/100 WBC (Bld) [Ratio] 0.0 /100 WBC Normal [facility] Comment on above: Order Comment: Speci men Type: BLOOD SPECIMENOrdering Facility: [facility] Address: [address] [place] [address] Performed By: #### 5 7021-8 ####[facility] LABCLIA [id number] [place] [address] Platelet mean volume (Bld) [Entitic vol] 9.5 fL Normal 9.0-12.7 [facility] Comment on above: Order Comment: Speci men Type: BLOOD SPECIMENOrdering Facility: [facility] Address: [address] [place] [address] Performed By: #### 5 7021-8 ####[facility] LABCLIA [id number] [place] [address] Platelets (Bld) [#/Vol] 291 10*3/uL Normal 150-400 [facility] Comment on above: Order Comment: Speci men Type: BLOOD SPECIMENOrdering Facility: [facility] Address: [address] [place] [address] Performed By: #### 5 7021-8 ####[facility] LABCLIA [id number] [place] [address] RBC (Bld) [#/Vol] 4.57 10*6/uL Normal 3.90-5.20 [facility] Comment on above: Order Comment: Speci men Type: BLOOD SPECIMENOrdering Facility: [facility] Address: [address] [place] [address] Performed By: #### 5 7021-8 ####[facility] LABCLIA [id number] [place] [address] WBC (Bld) [#/Vol] 13.12 10*3/uL High 3.70-11.00 [facility] Comment on above: Order Comment: Speci men Type: BLOOD SPECIMENOrdering Facility: [facility] Address: [address] [place] [address] Performed By: #### 5 7021-8 ####[facility] LABCLIA [id number] [place] [address] Comprehensive metabolic 2000 panelon 08-29-2024 Albumin [Mass/Vol] 4.2 g/dL Normal 3.9-4.9 [facility] Comment on above: Order Comment: Speci men Type: BLOOD SPECIMENOrdering Facility: [facility] Address: [address] [place] [address] Performed By: #### 2 4323-8 ####[facility] LABCLIA [id number] [place] [address] ALP [Catalytic activity/Vol] 69 U/L Normal 34-123 [facility] Comment on above: Order Comment: Speci men Type: BLOOD SPECIMENOrdering Facility: [facility] Address: [address] [place] [address] Performed By: #### 2 4323-8 ####[facility] LABCLIA [id number] [place] [address] ALT [Catalytic activity/Vol] 38 U/L Normal 7-38 [facility] Comment on above: Order Comment: Speci men Type: BLOOD SPECIMENOrdering Facility: [facility] Address: [address] [place] [address] Performed By: #### 2 4323-8 ####[facility] LABCLIA [id number] [place] [address] Anion gap [Moles/Vol] 12 mmol/L Normal 8-15 [facility] Comment on above: Order Comment: Speci men Type: BLOOD SPECIMENOrdering Facility: [facility] Address: [address] [place] [address] Performed By: #### 2 4323-8 ####[facility] LABCLIA [id number] [place] [address] AST [Catalytic activity/Vol] 15 U/L Normal 13-35 [facility] Comment on above: Order Comment: Speci men Type: BLOOD SPECIMENOrdering Facility: [facility] Address: [address] [place] [address] Performed By: #### 2 4323-8 ####[facility] LABCLIA [id number] [place] [address] Bilirubin [Mass/Vol] 0.2 mg/dL Normal 0.2-1.3 [facility] Comment on above: Order Comment: Speci men Type: BLOOD SPECIMENOrdering Facility: [facility] Address: [address] [place] [address] Performed By: #### 2 4323-8 ####[facility] LABCLIA [id number] [place] [address] Calcium [Mass/Vol] 10.3 mg/dL High 8.5-10.2 [facility] Comment on above: Order Comment: Speci men Type: BLOOD SPECIMENOrdering Facility: [facility] Address: [address] [place] [address] Performed By: #### 2 4323-8 ####[facility] LABCLIA [id number] [place] [address] Chloride [Moles/Vol] 101 mmol/L Normal 98-107 [facility] Comment on above: Order Comment: Speci men Type: BLOOD SPECIMENOrdering Facility: [facility] Address: [address] [place] [address] Performed By: #### 2 4323-8 ####[facility] LABCLIA [id number] [place] [address] CO2 [Moles/Vol] 26 mmol/L Normal 22-30 [facility] Comment on above: Order Comment: Speci men Type: BLOOD SPECIMENOrdering Facility: [facility] Address: [address] [place] [address] Performed By: #### 2 4323-8 ####[facility] LABCLIA [id number] [place] [address] Creatinine [Mass/Vol] 0.64 mg/dL Normal 0.58-0.96 [facility] Comment on above: Order Comment: Speci men Type: BLOOD SPECIMENOrdering Facility: [facility] Address: [address] [place] [address] Performed By: #### 2 4323-8 ####[facility] LABCLIA [id number] [place] [address] Creatinine and Glomerular filtration rate.predicted panel (S/P/Bld) 113 mL/min/1.73m??? Normal >=60 [facility] Comment on above: Order Comment: Speci men Type: BLOOD SPECIMENOrdering Facility: [facility] Address: [address] [place] [address] Result Comment: Erin mated Glomerular Filtration Rate [...] #### 2 4323-8 ####[facility] LABCLIA [id number] [place] [address] Glucose [Mass/Vol] 139 mg/dL High 74-99 [facility] Comment on above: Order Comment: Speci men Type: BLOOD SPECIMENOrdering Facility: [facility] Address: [address] [place] [address] Result Comment: The [place] [employer] (ADA) provides guidance for [...] Standards of Medical Care in Diabetes 2016, [place] [employer]. Diabetes Care. 2016.39(Suppl 1). Performed By: #### 2 4323-8 ####[facility] LABCLIA [id number] [place] [address] Potassium [Moles/Vol] 4.4 mmol/L Normal 3.7-5.1 [facility] Comment on above: Order Comment: Speci men Type: BLOOD SPECIMENOrdering Facility: [facility] Address: [address] [place] [address] Performed By: #### 2 4323-8 ####[facility] LABCLIA [id number] [place] [address] Protein [Mass/Vol] 7.1 g/dL Normal 6.3-8.0 [facility] Comment on above: Order Comment: Speci men Type: BLOOD SPECIMENOrdering Facility: [facility] Address: [address] [place] [address] Performed By: #### 2 4323-8 ####[facility] LABCLIA [id number] [place] [address] Sodium [Moles/Vol] 139 mmol/L Normal 136-144 [facility] Comment on above: Order Comment: Speci men Type: BLOOD SPECIMENOrdering Facility: [facility] Address: [address] [place] [address] Performed By: #### 2 4323-8 ####[facility] LABCLIA [id number] [place] [address] Urea nitrogen [Mass/Vol] 18 mg/dL Normal 7-21 [facility] Comment on above: Order Comment: Speci men Type: BLOOD SPECIMENOrdering Facility: [facility] Address: [address] [place] [address] Performed By: #### 2 4323-8 ####[facility] LABCLIA [id number] [place] [address] Ferritin SerPl-mCncon 2024 Ferritin [Mass/Vol] 43.1 ng/mL Normal 14.7-205.1 [facility] Comment on above: Order Comment: Speci men Type: BLOOD SPECIMENOrdering Facility: [facility] Address: [address] [place] [address] Performed By: #### 2 132-9, 2284-8, 2276-4, 41573-9 ####[facility]CLIA [id number] [place] [id number] [place] Folate SerPl-mCncon 08-30-19 25 Folate [Mass/Vol] ng/mL Normal >4.7 [facility] Comment on above: Order Comment: Speci men Type: BLOOD SPECIMENOrdering Facility: [facility] Address: [address] [place] [address] Result Comment: A re sult of > 20 ng/mL is not necessarily indicative of a pathologic or treatable condition: it reflects a limitation of the test methodology.Assay reference range: 4.8 to 24.2 ng/mL. Suitable for detection of folate deficiency.Reference:Folate III (Folate III) [package insert V 1.0 [place]]. [facility], [place], [place]: March 2015. Performed By: #### 2 132-9, 2284-8, 2276-4, 65738-1 ####[facility]CLIA [id number] [place] [id number] [place] IgG SerPl-mCncon 08-29-2024 IgG [Mass/Vol] 729 mg/dL Normal 700-1600 [facility] Comment on above: Order Comment: Speci men Type: BLOOD SPECIMENOrdering Facility: [facility] Address: [address] [place], [place] [address] Performed By: #### 2 465-3 ####[facility] LABIA [id number] [place] [address] [place] Iron and Iron binding capaci ty panelon 08-29-2024 Iron [Mass/Vol] 80 ug/dL Normal 41-186 [facility] Comment on above: Order Comment: Speci men Type: BLOOD SPECIMENOrdering Facility: [facility] Address: [address] [place] [address] Performed By: #### 2 132-9, 2284-8, 2276-4, 87571-4 ####[facility] [id number] [address] [place] [facility] Iron binding capacity [Mass/Vol] 416 ug/dL High 232-386 [facility] Comment on above: Order Comment: Speci men Type: BLOOD SPECIMENOrdering Facility: [facility] Address: [address] [place] [address] Performed By: #### 2 132-9, 2284-8, 2276-4, 34516-4 ####[facility] [id number] [place] [id number] [place] Iron/TIBC [Molar ratio] 19.2 % Normal 15.0-57.0 [facility] Comment on above: Order Comment: Speci men Type: BLOOD SPECIMENOrdering Facility: [facility] Address: [address] [place] [address] Performed By: #### 2 132-9, 2284-8, 2276-4, 13852-8 ####[facility] [id number] [place] [id number] [place] Vit B12 SerPl-mCncon 025 Cobalamin (Vitamin B12) [Mass/Vol] 555 pg/mL Normal 232-1245 [facility] Comment on above: Order Comment: Speci men Type: BLOOD SPECIMENOrdering Facility: [facility] Address: [address] [place] [address] Performed By: #### 2 132-9, 2284-8, 2276-4, 42141-3 ####[facility] LABCLIA [id number] [facility]USS[facility] [place] [address] [place] CNPNon 08-28-2024 CNPN Normal [facility] [place] [address] Ultrasound Report Signed Patient: ARIADNA HALEY MR#: [id number] : 1980 Acct:[id number] Age/Sex: 43 / F ADM Date: 08/24/24 Loc: US Attending Dr: Gordo Barfield M.D. Ordering Physician: Gordo Barfield M.D. Date of Service: 08/24/24 Procedure(s): US thyroid Accession Number(s): [id number] cc: GAY ENCISO ; Gordo Barfield M.D. [place] [id number] Patient Name: ARIADNA HALEY MRN: [id number] date: 1980 Sex: F Assigned Patient Location: US Current Patient Location: US Accession/Order Number: [id number] Exam Date: 08/24/2024 09:09 Report Date: 08/24/2024 [...] this was thought to be cystic. The operating room tech today considered it solid and it was given TI-RADS 4 classification. No internal color flow is shown. Size has not significantly changed when measuring in a comparable manner. No other nodularity is seen. US/US thyroid IMPRESSION: SIMILAR SMALL LEFT THYROID NODULE. FOLLOW-UP IN ONE YEAR IS SUGGESTED. Impression dictated by: Simin Nelson M.D.08/24/2024 9:22 AM Dictation Location: [place] [address] Electronically authenticated by: [id number] Y Date: 08/24/2024 09:22 Dictated By: Simin Nelson M.D. Signed By: 08/24/24923 DD/ 1 TD/TT: Intermediate Frame Tender: [facility] Radiology, Radiologist, MD - 08/24/2024 [place] [address] Ultrasound Report Signed Patient: ARIADNA HALEY MR#: [id number] : 1980 Acct:[id number] Age/Sex: 43 / F ADM Date: 08/24/24 Loc: US Attending Dr: Gordo Barfield M.D. Ordering Physician: Gordo Barfield M.D. Date of Service: 08/24/24 Procedure(s): US thyroid Accession Number(s): [id number] cc: GAY ENCISO ; Gordo Barfield M.D. The [place] [address] Patient Name: ARIADNA HALEY MRN: [facility]:[id number] date: 1980 Sex: F Assigned Patient Location: US Current Patient Location: US Accession/Order Number: [id number] Exam Date: 08/24/2024 09:09 Report Date: 08/24/2024 [...] this was thought to be cystic. The operating room tech today considered it solid and it was given TI-RADS 4 classification. No internal color flow is shown. Size has not significantly changed when measuring in a comparable manner. No other nodularity is seen. US/US thyroid IMPRESSION: SIMILAR SMALL LEFT THYROID NODULE. FOLLOW-UP IN ONE YEAR IS SUGGESTED. Impression dictated by: Simin Nelson M.D.08/24/2024 9:22 AM Dictation Location: [place] [address] Electronically authenticated by: [id number] Y Date: 08/24/2024 09:22 Dictated By: Simin Nelson M.D. Signed By: 08/24/24923 DD/ 1 TD/TT: Intermediate Frame Tender: [facility] Radiology Study observation (narrative) [facility] US Thyroid glandOrdered By: Radiologist Radiology on 08-24-2024 [facility] Work Phone: CNPNon 08-08-2024 CNPN Normal [facility] HCG ( test) Marcelo hays Ql (U)Ordered By: Adolfo Kang on 07-19-2024 HCG ( test) Ql (U) Urine human chorionic gonadotropin (hCG) detection by immunoassay [facility] HCG,Urineon 07-19-2024 Beta HCG ( test) Ql (U) Negative Normal [facility] Comment on above: Result Comment: PERF ORMED BY: [place] [address] PATHOLOGIST [employer] HAYDEN LLAMAS M.D. Performed By: #### U HCG #### [address] CNOVon 07-12-2024 CNOV Normal [facility] CNPNon 07-09-2024 CNPN Normal [facility] 25(OH)D3 SerPl-mCncon 2024 25-hydroxyvitamin D3 [Mass/Vol] 28.5 ng/mL Low 31.0-80.0 [facility] Comment on above: Order Comment: Speci men Type: BLOOD SPECIMENOrdering Facility: [facility] Address: [address] [place] [address] Result Comment: Clas sification of 25 [place] Vitamin D status:Deficiency/Insufficiency: < or = 30 ng/ml.Sufficiency/Optimal Levels: 31-80 ng/mLToxicity: > 100 ng/mL.Test performed by chemiluminescent immunoassay. Performed By: #### 1 989-3 ####[facility] [id number] [facility] [id number] [address] [place] CBC panel Auto (Bld)on 06-30 Erythrocyte distribution width (RBC) [Ratio] 14.3 % Normal 11.5-15.0 [facility] Comment on above: Order Comment: Speci men Type: BLOOD SPECIMENOrdering Facility: [facility] Address: [address] [place] [address] Performed By: #### 5 8410-2 ####[facility] [id number] [place] [id number] [place] Hematocrit (Bld) [Volume fraction] 41.3 % Normal 36.0-46.0 [facility] Comment on above: Order Comment: Speci men Type: BLOOD SPECIMENOrdering Facility: [facility] Address: [address] [place] [address] Performed By: #### 5 8410-2 ####[facility] [id number] [place] [id number] [place] Hemoglobin (Bld) [Mass/Vol] 13.5 g/dL Normal 11.5-15.5 [facility] Comment on above: Order Comment: Speci men Type: BLOOD SPECIMENOrdering Facility: [facility] Address: [address] [place] [address] Performed By: #### 5 8410-2 ####[facility]ITAL[facility] [id number] [place] [id number] [place] MCH (RBC) [Entitic mass] 30.4 pg Normal 26.0-34.0 [facility] Comment on above: Order Comment: Speci men Type: BLOOD SPECIMENOrdering Facility: [facility] Address: [address] [place] [address] Performed By: #### 5 8410-2 ####[facility]ENTER[facility] [id number] [place] [id number] [place] MCHC (RBC) [Mass/Vol] 32.7 g/dL Normal 30.5-36.0 [facility] Comment on above: Order Comment: Speci men Type: BLOOD SPECIMENOrdering Facility: [facility] Address: [address] [place] [address] Performed By: #### 5 8410-2 ####[facility]ITAL[facility] [id number] [place] [id number] [place] MCV (RBC) [Entitic vol] 93.0 fL Normal 80.0-100.0 [facility] Comment on above: Order Comment: Speci men Type: BLOOD SPECIMENOrdering Facility: [facility] Address: [address] [place] [address] Performed By: #### 5 8410-2 ####[facility] [id number] [place] [id number] [place] Nucleated RBC (Bld) [#/Vol] 10*3/uL Normal <0.01 [facility] Comment on above: Order Comment: Speci men Type: BLOOD SPECIMENOrdering Facility: [facility] Address: [address] [place] [address] Performed By: #### 5 8410-2 ####[facility] [id number] [place] [id number] [place] [facility] Platelet mean volume (Bld) [Entitic vol] 9.8 fL Normal 9.0-12.7 [facility] Comment on above: Order Comment: Speci men Type: BLOOD SPECIMENOrdering Facility: [facility] Address: [address] [place] [address] Performed By: #### 5 8410-2 ####[facility] LABCL[facility] [id number] [place] [address] [place] Platelets (Bld) [#/Vol] 341 10*3/uL Normal 150-400 [facility] Comment on above: Order Comment: Speci men Type: BLOOD SPECIMENOrdering Facility: [facility] Address: [address] [place] [address] Performed By: #### 5 8410-2 ####[facility] LABIA [id number] [place] [address] [place] RBC (Bld) [#/Vol] 4.44 10*6/uL Normal 3.90-5.20 [facility] Comment on above: Order Comment: Speci men Type: BLOOD SPECIMENOrdering Facility: [facility] Address: [address] [place] [address] Performed By: #### 5 8410-2 ####[facility] LABIA [id number] [place] [address] [place] WBC (Bld) [#/Vol] 12.66 10*3/uL High 3.70-11.00 [facility] Comment on above: Order Comment: Speci men Type: BLOOD SPECIMENOrdering Facility: [facility] Address: [address] [place] [address] Performed By: #### 5 8410-2 ####[facility] HOSPITALAn[facility] [id number] [place] [address] [place] CRP SerPl-mCncon 06-30-2024 CRP [Mass/Vol] 0.1 mg/dL Normal <0.9 [facility] Comment on above: Order Comment: Speci men Type: BLOOD SPECIMENOrdering Facility: [facility] Address: [address] [place] [address] Performed By: #### 1 988-5, 99953-8 ####[facility] HOS[facility]ITALT [facility] [id number] [place] [address] [place] Comprehensive metabolic 2000 panelon 06-30-2024 Albumin [Mass/Vol] 4.0 g/dL Normal 3.9-4.9 [facility] Comment on above: Order Comment: Speci men Type: BLOOD SPECIMENOrdering Facility: [facility] Address: [address] [place] [address] Performed By: #### 1 988-5, 29904-7 ####[facility] [id number] [place] [address] [place] ALP [Catalytic activity/Vol] 52 U/L Normal 34-123 [facility] Comment on above: Order Comment: Speci men Type: BLOOD SPECIMENOrdering Facility: [facility] Address: [address] [place] [address] Performed By: #### 1 988-5, 25058-0 ####[facility] [id number] [place] [address] [place] ALT [Catalytic activity/Vol] 26 U/L Normal 7-38 [facility] Comment on above: Order Comment: Speci men Type: BLOOD SPECIMENOrdering Facility: [facility] Address: [address] [place] [address] Performed By: #### 1 988-5, 29073-5 ####[facility] [id number] [place] [address] [place] Anion gap [Moles/Vol] 10 mmol/L Normal 8-15 [facility] Comment on above: Order Comment: Speci men Type: BLOOD SPECIMENOrdering Facility: [facility] Address: [address] [place] [address] Performed By: #### 1 988-5, 07481-5 ####[facility] [id number] [place] [address] [place] AST [Catalytic activity/Vol] 12 U/L Low 13-35 [facility] Comment on above: Order Comment: Speci men Type: BLOOD SPECIMENOrdering Facility: [facility] Address: [address] [place] [address] Performed By: #### 1 988-5, 91943-7 ####[facility] [id number] [place] [address] [place] Bilirubin [Mass/Vol] 0.3 mg/dL Normal 0.2-1.3 [facility] Comment on above: Order Comment: Speci men Type: BLOOD SPECIMENOrdering Facility: [facility] Address: [address] [place], [place] [address] Performed By: #### 1 988-5, 86981-9 ####[facility] [id number] [place] [address] [place] Calcium [Mass/Vol] 9.5 mg/dL Normal 8.5-10.2 [facility] Comment on above: Order Comment: Speci men Type: BLOOD SPECIMENOrdering Facility: [facility] Address: [address] [place] [address] Performed By: #### 1 988-5, 20867-7 ####[facility] [id number] [place] [id number] [place] Chloride [Moles/Vol] 103 mmol/L Normal 98-107 [facility] Comment on above: Order Comment: Speci men Type: BLOOD SPECIMENOrdering Facility: [facility] Address: [address] [place] [address] Performed By: #### 1 988-5, 54388-4 ####[facility] [id number] [place] [address] [place] CO2 [Moles/Vol] 27 mmol/L Normal 22-30 [facility] Comment on above: Order Comment: Speci men Type: BLOOD SPECIMENOrdering Facility: [facility] Address: [address] [place], [place] [address] Performed By: #### 1 988-5, 22975-2 ####[facility] [id number] [place] [address] [place] Creatinine [Mass/Vol] 0.78 mg/dL Normal 0.58-0.96 [facility] Comment on above: Order Comment: Semaj cortés Type: BLOOD SPECIMENOrdering Facility: [facility] Address: [address] [place] [address] Performed By: #### 1 988-5, 46844-9 ####[facility] [id number] [place] [id number] [facility] [place] Creatinine and Glomerular filtration rate.predicted panel (S/P/Bld) 97 mL/min/1.73m??? Normal >=60 [facility] Comment on above: Order Comment: Semaj cortés Type: BLOOD SPECIMENOrdering Facility: [facility] Address: [address] [place] [address] Result Comment: Erin mated Glomerular Filtration Rate [...] actual GFR. Performed By: #### 1 988-5, 87025-5 ####[facility] [id number] [place] [id number] [place] Glucose [Mass/Vol] 116 mg/dL High 74-99 [facility] Comment on above: Order Comment: Semaj cortés Type: BLOOD SPECIMENOrdering Facility: [facility] Address: [address] [place] [address] Result Comment: The [place] [employer] Association (ADA) provides guidance for [...] Standards of Medical Care in Diabetes 2016, [place] [employer]. Diabetes Care. 2016.39(Suppl 1). Performed By: #### 1 988-5, 83694-1 ####[facility] [id number] [place] [address] [place] Potassium [Moles/Vol] 3.8 mmol/L Normal 3.7-5.1 [facility] Comment on above: Order Comment: Speci men Type: BLOOD SPECIMENOrdering Facility: [facility] Address: [address] [place] [address] Performed By: #### 1 988-5, 58619-7 ####[facility] CENTERAnahi [facility] [id number] [place] [address] [place] Protein [Mass/Vol] 7.6 g/dL Normal 6.3-8.0 [facility] Comment on above: Order Comment: Speci men Type: BLOOD SPECIMENOrdering Facility: [facility] Address: [address] [place] [address] Performed By: #### 1 988-5, 97103-3 ####[facility] CENTERAnahi [facility] [id number] [place] [address] [place] Sodium [Moles/Vol] 140 mmol/L Normal 136-144 [facility] Comment on above: Order Comment: Speci men Type: BLOOD SPECIMENOrdering Facility: [facility] Address: [address] [place] [address] Performed By: #### 1 988-5, 92773-2 ####[facility] [id number] [place] [address] [place] Urea nitrogen [Mass/Vol] 18 mg/dL Normal 7-21 [facility] Comment on above: Order Comment: Speci men Type: BLOOD SPECIMENOrdering Facility: [facility] Address: [address] [place] [address] Performed By: #### 1 988-5, 49503-3 ####[facility] [id number] [place] [address] [place] ESR Westergren method (Bld) [Velocity]on 06-30-2024 ESR (Bld) [Velocity] 28 mm/h High 0-20 [facility] Comment on above: Order Comment: Speci men Type: BLOOD SPECIMENOrdering Facility: [facility] Address: [address] [place] [address] Performed By: #### 4 537-7 ####[facility] [id number] [place] [address] [place] CNPNon 06-16-2024 CNPN Normal [facility] ALLIED HEALTHon 06-13-2024 ALLIED HEALTH Normal [facility] CBC W Auto Differential pane l (Bld)on 06-13-2024 Basophils (Bld) [#/Vol] 0.10 10*3/uL [facility] Basophils/100 WBC (Bld) 0.7 % [facility] Differential cell count method Nom (Bld) Auto [facility] Eosinophils (Bld) [#/Vol] 0.15 10*3/uL [facility] Eosinophils/100 WBC (Bld) 1.1 % [facility] Erythrocyte distribution width (RBC) [Ratio] 14.2 % 11.5 - 15.0 % [facility] Hematocrit (Bld) [Volume fraction] 39.0 % 36.0 - 46.0 % [facility] Hemoglobin (Bld) [Mass/Vol] 13.0 g/dL 11.5 - 15.5 g/dL [facility] Immature granulocytes (Bld) [#/Vol] 0.21 10*3/uL High [facility] Immature granulocytes/100 WBC (Bld) 1.5 % [facility] Interpretation and review of laboratory results Abnormal [facility] Lymphocytes (Bld) [#/Vol] 2.16 10*3/uL [facility] Lymphocytes/100 WBC (Bld) 15.4 % [facility] MCH (RBC) [Entitic mass] 30.5 pg 26.0 - 34.0 pg [facility] MCHC (RBC) [Mass/Vol] 33.3 g/dL 30.5 - 36.0 g/dL [facility] MCV (RBC) [Entitic vol] 91.5 fL 80.0 - 100.0 fL [facility] Monocytes (Bld) [#/Vol] 0.79 10*3/uL [facility] Monocytes/100 WBC (Bld) 5.6 % [facility] Neutrophils (Bld) [#/Vol] 10.59 10*3/uL High [facility] Neutrophils/100 WBC (Bld) 75.7 % [facility] Nucleated RBC (Bld) [#/Vol] NINF [facility] Nucleated RBC/100 WBC (Bld) [Ratio] 0.0 % /100 WBC [facility] Platelet mean volume (Bld) [Entitic vol] 9.9 fL 9.0 - 12.7 fL [facility] Platelets (Bld) [#/Vol] 327 10*3/uL [facility] RBC (Bld) [#/Vol] 4.26 10*6/uL 3.90 - 5.2 0 m/uL [facility] WBC (Bld) [#/Vol] 14.00 10*3/uL High [facility] Basophils (Bld) [#/Vol] 0.10 10*3/uL Normal <0.11 [facility] Comment on above: Order Comment: Speci men Type: BLOOD SPECIMENOrdering Facility: [facility] Address: [address] [place] [address] Performed By: #### 5 7021-8 ####[facility] LABCLIA [id number] [place] [address] Basophils/100 WBC (Bld) 0.7 % Normal [facility] Comment on above: Order Comment: Speci men Type: BLOOD SPECIMENOrdering Facility: [facility] Address: [address] [place] [address] Performed By: #### 5 7021-8 ####[facility] LABCLIA [id number] [place] [address] Differential cell count method Nom (Bld) Auto Normal [facility] Comment on above: Order Comment: Speci men Type: BLOOD SPECIMENOrdering Facility: [facility] Address: [address] [place] [address] Performed By: #### 5 7021-8 ####[facility] LABCLIA [id number] [place] [address] Eosinophils (Bld) [#/Vol] 0.15 10*3/uL Normal <0.46 [facility] Comment on above: Order Comment: Speci men Type: BLOOD SPECIMENOrdering Facility: [facility] Address: [address] [place] [address] Performed By: #### 5 7021-8 ####[facility] LABCLIA [id number] [place] [address] Eosinophils/100 WBC (Bld) 1.1 % Normal [facility] Comment on above: Order Comment: Speci men Type: BLOOD SPECIMENOrdering Facility: [facility] Address: [address] [place] [address] Performed By: #### 5 7021-8 ####[facility] LABCLIA [id number] [place] [address] Erythrocyte distribution width (RBC) [Ratio] 14.2 % Normal 11.5-15.0 [facility] Comment on above: Order Comment: Speci men Type: BLOOD SPECIMENOrdering Facility: [facility] Address: [address] [place] [address] Performed By: #### 5 7021-8 ####[facility] LABCLIA [id number] [place] [address] Hematocrit (Bld) [Volume fraction] 39.0 % Normal 36.0-46.0 [facility] Comment on above: Order Comment: Speci men Type: BLOOD SPECIMENOrdering Facility: [facility] Address: [address] [place] [address] Performed By: #### 5 7021-8 ####[facility] LABCLIA [id number] [place] [address] Hemoglobin (Bld) [Mass/Vol] 13.0 g/dL Normal 11.5-15.5 [facility] Comment on above: Order Comment: Speci men Type: BLOOD SPECIMENOrdering Facility: [facility] Address: [address] [place] [address] Performed By: #### 5 7021-8 ####[facility] LABCLIA [id number] [place] [address] Immature granulocytes (Bld) [#/Vol] 0.21 10*3/uL High <0.10 [facility] Comment on above: Order Comment: Speci men Type: BLOOD SPECIMENOrdering Facility: [facility] Address: [address] [place] [address] Performed By: #### 5 7021-8 ####[facility] LABCLIA [id number] [place] [address] Immature granulocytes/100 WBC (Bld) 1.5 % Normal [facility] Comment on above: Order Comment: Speci men Type: BLOOD SPECIMENOrdering Facility: [facility] Address: [address] [place] [address] Performed By: #### 5 7021-8 ####[facility] LABCLIA [id number] [place] [address] Lymphocytes (Bld) [#/Vol] 2.16 10*3/uL Normal 1.00-4.00 [facility] Comment on above: Order Comment: Speci men Type: BLOOD SPECIMENOrdering Facility: [facility] Address: [address] [place] [address] Performed By: #### 5 7021-8 ####[facility] LABCLIA [id number] [place] [address] Lymphocytes/100 WBC (Bld) 15.4 % Normal [facility] Comment on above: Order Comment: Speci men Type: BLOOD SPECIMENOrdering Facility: [facility] Address: [address] [place] [address] Performed By: #### 5 7021-8 ####[facility] LABCLIA [id number] [place] [address] MCH (RBC) [Entitic mass] 30.5 pg Normal 26.0-34.0 [facility] Comment on above: Order Comment: Speci men Type: BLOOD SPECIMENOrdering Facility: [facility] Address: [address] [place] [address] Performed By: #### 5 7021-8 ####[facility] LABIA [id number] [place] [address] MCHC (RBC) [Mass/Vol] 33.3 g/dL Normal 30.5-36.0 [facility] Comment on above: Order Comment: Speci men Type: BLOOD SPECIMENOrdering Facility: [facility] Address: [address] [place] [address] Performed By: #### 5 7021-8 ####[facility] LABIA [id number] [place] [address] MCV (RBC) [Entitic vol] 91.5 fL Normal 80.0-100.0 [facility] Comment on above: Order Comment: Speci men Type: BLOOD SPECIMENOrdering Facility: [facility] Address: [address] [place] [address] Performed By: #### 5 7021-8 ####[facility] LABIA [id number] [place] [address] Monocytes (Bld) [#/Vol] 0.79 10*3/uL Normal <0.87 [facility] Comment on above: Order Comment: Speci men Type: BLOOD SPECIMENOrdering Facility: [facility] Address: [address] [place] [address] Performed By: #### 5 7021-8 ####[facility] LABCLIA [id number] [place] [address] Monocytes/100 WBC (Bld) 5.6 % Normal [facility] Comment on above: Order Comment: Speci men Type: BLOOD SPECIMENOrdering Facility: [facility] Address: [address] [place] [address] Performed By: #### 5 7021-8 ####[facility] LABCLIA [id number] [place] [address] Neutrophils (Bld) [#/Vol] 10.59 10*3/uL High 1.45-7.50 [facility] Comment on above: Order Comment: Speci men Type: BLOOD SPECIMENOrdering Facility: [facility] Address: [address] [place] [address] Performed By: #### 5 7021-8 ####[facility] LABCLIA [id number] [place] [address] Neutrophils/100 WBC (Bld) 75.7 % Normal [facility] Comment on above: Order Comment: Speci men Type: BLOOD SPECIMENOrdering Facility: [facility] Address: [address] [place] [address] Performed By: #### 5 7021-8 ####[facility] LABCLIA [id number] [place] [address] Nucleated RBC (Bld) [#/Vol] 10*3/uL Normal <0.01 [facility] Comment on above: Order Comment: Speci men Type: BLOOD SPECIMENOrdering Facility: [facility] Address: [address] [place] [address] Performed By: #### 5 7021-8 ####[facility] LABCLIA [id number] [place] [address] Nucleated RBC/100 WBC (Bld) [Ratio] 0.0 /100 WBC Normal [facility] Comment on above: Order Comment: Speci men Type: BLOOD SPECIMENOrdering Facility: [facility] Address: [address] [place] [address] Performed By: #### 5 7021-8 ####[facility] LABCLIA [id number] [place] [address] Platelet mean volume (Bld) [Entitic vol] 9.9 fL Normal 9.0-12.7 [facility] Comment on above: Order Comment: Speci men Type: BLOOD SPECIMENOrdering Facility: [facility] Address: [address] [place] [address] Performed By: #### 5 7021-8 ####[facility] LABCLIA [id number] [place] [address] Platelets (Bld) [#/Vol] 327 10*3/uL Normal 150-400 [facility] Comment on above: Order Comment: Speci men Type: BLOOD SPECIMENOrdering Facility: [facility] Address: [address] [place] [address] Performed By: #### 5 7021-8 ####[facility] LABIA [id number] [place] [address] RBC (Bld) [#/Vol] 4.26 10*6/uL Normal 3.90-5.20 [facility] Comment on above: Order Comment: Speci men Type: BLOOD SPECIMENOrdering Facility: [facility] Address: [address] [place] [address] Performed By: #### 5 7021-8 ####[facility] LABCLIA [id number] [place] [address] WBC (Bld) [#/Vol] 14.00 10*3/uL High 3.70-11.00 [facility] Comment on above: Order Comment: Speci men Type: BLOOD SPECIMENOrdering Facility: [facility] Address: [address] [place] [address] Performed By: #### 5 7021-8 ####[facility] LABCLIA [id number] [place] [address] CNOVSPon 06-13-2024 CNOVSP Normal [facility] Comprehensive metabolic 2000 panelOrdered By: Josse Gaurang on 06-13-2024 Albumin [Mass/Vol] 3.9 g/dL 3.9 - 4.9 g/dL [facility] ALP [Catalytic activity/Vol] 73 U/L 34 - 123 U/L [facility] ALT [Catalytic activity/Vol] 24 U/L 7 - 38 U/L [facility] Anion gap [Moles/Vol] 15 mmol/L 8 - 15 mmol/L [facility] AST [Catalytic activity/Vol] 12 U/L Low 13 - 35 U/L [facility] Bilirubin [Mass/Vol] mg/dL Low 0.2 - 1 .3 mg/dL [facility] Calcium [Mass/Vol] 9.2 mg/dL 8.5 - 10. 2 mg/dL [facility] Chloride [Moles/Vol] 104 mmol/L 98 - 10 7 mmol/L [facility] CO2 [Moles/Vol] 19 mmol/L Low 22 - 30 mmol/L [facility] Creatinine [Mass/Vol] 0.58 mg/dL 0.58 - 0.96 mg/dL [facility] GFR/1.73 sq M.predicted among non-blacks MDRD (S/P/Bld) [Vol rate/Area] 115 mL/min/{1.73_m2} - PINF [facility] Comment on above: Estimated Glomerular Filtration [...] 163 mg/dL High 74 - 99 mg/dL [facility] Comment on above: The [place] Di[employer] Association (ADA) provides guidance for [...] Standards of Medical Care in Diabetes 2016, [place] [employer]. Diabetes Care. 2016.39(Suppl 1). Interpretation and review of laboratory results Abnormal [facility] Potassium [Moles/Vol] 3.9 mmol/L 3.7 - 5.1 mmol/L [facility] Protein [Mass/Vol] 6.8 g/dL 6.3 - 8.0 g/dL [facility] Sodium [Moles/Vol] 138 mmol/L 136 - 144 mmol/L [facility] Urea nitrogen [Mass/Vol] 13 mg/dL 7 - 21 mg/dL [facility] Comprehensive metabolic 2000 panelon 06-13-2024 Albumin [Mass/Vol] 3.9 g/dL Normal 3.9-4.9 [facility] Comment on above: Order Comment: Speci men Type: BLOOD SPECIMENOrdering Facility: [facility] Address: [address] [place] [address] Performed By: #### 2 4323-8 ####[facility] LABCLIA [id number] [place] [address] ALP [Catalytic activity/Vol] 73 U/L Normal 34-123 [facility] Comment on above: Order Comment: Daniellai moo Type: BLOOD SPECIMENOrdering Facility: [facility] Address: [address] [place] [address] Performed By: #### 2 4323-8 ####[facility] LABCLIA [id number] [place] [address] ALT [Catalytic activity/Vol] 24 U/L Normal 7-38 [facility] Comment on above: Order Comment: Daniellai men Type: BLOOD SPECIMENOrdering Facility: [facility] Address: [address] [place] [address] Performed By: #### 2 4323-8 ####[facility] LABCLIA [id number] [place] [address] Anion gap [Moles/Vol] 15 mmol/L Normal 8-15 [facility] Comment on above: Order Comment: Speci men Type: BLOOD SPECIMENOrdering Facility: [facility] Address: [address] [place] [address] Performed By: #### 2 4323-8 ####[facility] LABCLIA [id number] [place] [address] AST [Catalytic activity/Vol] 12 U/L Low 13-35 [facility] Comment on above: Order Comment: Speci men Type: BLOOD SPECIMENOrdering Facility: [facility] Address: [address] [place] [address] Performed By: #### 2 4323-8 ####[facility] LABCLIA [id number] [place] [address] Bilirubin [Mass/Vol] mg/dL Low 0.2-1.3 [facility] Comment on above: Order Comment: Speci men Type: BLOOD SPECIMENOrdering Facility: [facility] Address: [address] [place] [address] Performed By: #### 2 4323-8 ####[facility] LABCLIA [id number] [place] [address] Calcium [Mass/Vol] 9.2 mg/dL Normal 8.5-10.2 [facility] Comment on above: Order Comment: Speci men Type: BLOOD SPECIMENOrdering Facility: [facility] Address: [address] [place] [address] Performed By: #### 2 4323-8 ####[facility] LABCLIA [id number] [place] [address] Chloride [Moles/Vol] 104 mmol/L Normal 98-107 [facility] Comment on above: Order Comment: Speci men Type: BLOOD SPECIMENOrdering Facility: [facility] Address: [address] [place] [address] Performed By: #### 2 4323-8 ####[facility] LABCLIA [id number] [place] [address] CO2 [Moles/Vol] 19 mmol/L Low 22-30 [facility] Comment on above: Order Comment: Speci men Type: BLOOD SPECIMENOrdering Facility: [facility] Address: [address] [place] [address] Performed By: #### 2 4323-8 ####[facility] LABCLIA [id number] [place] [address] Creatinine [Mass/Vol] 0.58 mg/dL Normal 0.58-0.96 [facility] Comment on above: Order Comment: Speci men Type: BLOOD SPECIMENOrdering Facility: [facility] Address: [address] [place] [address] Performed By: #### 2 4323-8 ####[facility] LABIA [id number] [place] [address] Creatinine and Glomerular filtration rate.predicted panel (S/P/Bld) 115 mL/min/1.73m??? Normal >=60 [facility] Comment on above: Order Comment: Speci men Type: BLOOD SPECIMENOrdering Facility: [facility] Address: [address] [place] [address] Result Comment: Erin mated Glomerular Filtration Rate [...] #### 2 4323-8 ####[facility] [facility] [id number] [place] [address] Glucose [Mass/Vol] 163 mg/dL High 74-99 [facility] Comment on above: Order Comment: Speci men Type: BLOOD SPECIMENOrdering Facility: [facility] Address: [address] [place] [address] Result Comment: The [place] Diabetes Association (ADA) provides guidance for [...] Standards of Medical Care in Diabetes 2016, [place] [employer] Association. Diabetes Care. 2016.39(Suppl 1). Performed By: #### 2 4323-8 ####[facility] LABCLIA [id number] [place] [address] Potassium [Moles/Vol] 3.9 mmol/L Normal 3.7-5.1 [facility] Comment on above: Order Comment: Speci men Type: BLOOD SPECIMENOrdering Facility: [facility] Address: [address] [place] [address] Performed By: #### 2 4323-8 ####[facility] LABCLIA [id number] [place] [address] Protein [Mass/Vol] 6.8 g/dL Normal 6.3-8.0 [facility] Comment on above: Order Comment: Speci men Type: BLOOD SPECIMENOrdering Facility: [facility] Address: [address] [place] [address] Performed By: #### 2 4323-8 ####[facility] LABCLIA [id number] [place] [address] Sodium [Moles/Vol] 138 mmol/L Normal 136-144 [facility] Comment on above: Order Comment: Speci men Type: BLOOD SPECIMENOrdering Facility: [facility] Address: [address] [place] [address] Performed By: #### 2 4323-8 ####[facility] LABCLIA [id number] [place] [address] Urea nitrogen [Mass/Vol] 13 mg/dL Normal 7-21 [facility] Comment on above: Order Comment: Speci men Type: BLOOD SPECIMENOrdering Facility: [facility] Address: [address] [place] [address] Performed By: #### 2 4323-8 ####[facility] LABCLIA [id number] [place] [address] ESR Westergren method (Bld) [Velocity]on 06-13-2024 ESR (Bld) [Velocity] 30 mm/h High [facility] Interpretation and review of laboratory results Abnormal [facility] ESR (Bld) [Velocity] 30 mm/h High 0-20 [facility] Comment on above: Order Comment: Speci men Type: BLOOD SPECIMENOrdering Facility: [facility] Address: [address] [place] [address] Performed By: #### 4 537-7 ####[facility] [id number] [place] [id number] [place] FERRITINon 06-13-2024 Ferritin [Mass/Vol] 30.9 ng/mL 14.7 - 2 05.1 ng/mL [facility] FOLATE, SERUMon 06-13-2024 Folate [Mass/Vol] 19.6 ng/mL 4.7 - PINF ng/mL [facility] Ferritin SerPl-mCncon 2024 Ferritin [Mass/Vol] 30.9 ng/mL Normal 14.7-205.1 [facility] Comment on above: Order Comment: Speci men Type: BLOOD SPECIMENOrdering Facility: [facility] Address: [address] [place], [place] [address] [address] Performed By: #### 2 284-8, 2276-4, 24346-0, 2132-9 ####[facility] [id number] [place] [id number] [place] Ferritin [Mass/Vol]on 01-21- 2025 Interpretation and review of laboratory results Normal [facility] Folate SerPl-mCncon 06-13-19 25 Folate [Mass/Vol] 19.6 ng/mL Normal >4.7 [facility] Comment on above: Order Comment: Speci men Type: BLOOD SPECIMENOrdering Facility: [facility] Address: [address] [place] [address] Performed By: #### 2 284-8, 2276-4, 94803-6, 2132-9 ####[facility]CL[facility] [id number] [place] [address] [place] IMMUNOGLOBULINS,IGG,IGA,IGMo n 06-13-2024 IgA [Mass/Vol] 170 mg/dL Normal 70-400 [facility] Comment on above: Order Comment: Speci men Type: BLOOD SPECIMENOrdering Facility: [facility] Address: [address] [place] [address] Performed By: #### S ERIMM ####[facility] [id number] [place] [address] [place] IgG [Mass/Vol] 663 mg/dL Low 700-1600 [facility] Comment on above: Order Comment: Speci men Type: BLOOD SPECIMENOrdering Facility: [facility] Address: [address] [place] [address] Performed By: #### S ERIMM ####[facility] [id number] [place] [address] [place] IgM [Mass/Vol] 376 mg/dL High 40-230 [facility] Comment on above: Order Comment: Speci men Type: BLOOD SPECIMENOrdering Facility: [facility] Address: [address] [place] [address] Performed By: #### S ERIMM ####[facility] [id number] [place] [address] [place] Iron and Iron binding capaci ty panelon 06-13-2024 Iron [Mass/Vol] 64 ug/dL Normal 41-186 [facility] Comment on above: Order Comment: Speci men Type: BLOOD SPECIMENOrdering Facility: [facility] Address: [address] [place] [address] [place] [id number] Performed By: #### 2 284-8, 2276-4, 35579-6, 2132-01 ####[facility] [id number] [place] [id number] [place] Iron binding capacity [Mass/Vol] 409 ug/dL High 232-386 [facility] Comment on above: Order Comment: Speci men Type: BLOOD SPECIMENOrdering Facility: [facility] Address: [address] [place] [address] [place] [address] Performed By: #### 2 284-8, 2276-4, 23282-1, 2132-01 ####[facility]CL[facility] [id number] [place] [address] [place] Iron/TIBC [Molar ratio] 15.6 % Normal 15.0-57.0 [facility] Comment on above: Order Comment: Speci men Type: BLOOD SPECIMENOrdering Facility: [facility] Address: [address] [place] [address] [place] [address] Performed By: #### 2 284-8, 2276-4, 30842-6, 2132-01 ####[facility]CL[facility] [id number] [place] [id number] [place] Laboratory - Chemistry and C hemistry - challengeon 06-13-2024 IgA [Mass/Vol] 170 mg/dL 70 - 400 mg/dL [facility] IgG [Mass/Vol] 663 mg/dL Low 700 - 1600 mg/dL [facility] IgM [Mass/Vol] 376 mg/dL High 40 - 230 mg/dL [facility] No Panel Informationon 06-13 Interpretation and review of laboratory results Normal [facility] Interpretation and review of laboratory results Abnormal [facility] VITAMIN B12on 06-13-2024 Cobalamin (Vitamin B12) [Mass/Vol] 516 pg/mL 232 - 1245 pg/mL [facility] Vit B12 SerPl-mCncon 025 Cobalamin (Vitamin B12) [Mass/Vol] 516 pg/mL Normal 232-1245 [facility] Comment on above: Order Comment: Speci men Type: BLOOD SPECIMENOrdering Facility: [facility] Address: [address] [place] [address] [place] [address] Performed By: #### 2 284-8, 2276-4, 21591-7, 2132-9 ####[facility] [id number] [facility] [place] [address] [place] CNPNon 06-12-2024 CNPN Normal [facility] IGP,APTIMA HPV,AGE GDLNon AGE GDLN ACOG TESTING Note . [facility] Comment on above: TESTS RESULT FLAG UN ITS REF RANGE LAB Clinician Provided Cytology Information Source.............Cervix;Endocervix No. of containers..01 ThinPrep Vial Age Algo ACOG Vicky... 30-65 01 FLAG LEGEND: L-Low Normal,H-High Normal,LL-Alert Low,HH-Alert High <-Panic Low,>-Panic High,A-Abnormal,AA-Critical Abnormal Performed at: 01 =G [facility] [address] [facility] [place] [address] Aparna Solorzano MD, HPV APTIMA Negative Negative [facility] Comment on above: This nucleic acid am plification test detects fourteen high- risk HPV types (16,18,31,33,35,39,45,51,52,56,58,59,66,68) without differentiation. Performed at: = - [facility] [id number] Jump Roll Operator: Aparan Solorzano MD, Phone: [phone] Performed at: - [facility], [place] [id number] Jump Roll Operator: Aparna Solorzano MD, Phone: [phone] IGP, APTIMA HPV, RFX 16/18,45 Note . [facility] Comment on above: TESTS RESULT FLAG UN ITS REF RANGE LAB DIAGNOSIS: 02 NEGATIVE FOR INTRAEPITHELIAL LESION OR MALIGNANCY. Specimen adequacy: 02 Satisfactory for evaluation. Endocervical and/or squamous metaplastic cells (endocervical component) are present. Performed by: David Kam, Diesel Instructor ([facility]) . 02 Note: Note 02 The [...] High,A-Abnormal,AA-Critical Abnormal Performed at: 02 [facility] [address] [place] [address] Aparna Solorzano MD, BRUSH-SPATULA CERVIX ENDOCERVIX [facility] CBC W Auto Differential pane l (Bld)on 05-19-2024 Basophils (Bld) [#/Vol] 0.08 10*3/uL [facility] Basophils/100 WBC (Bld) 0.6 % [facility] Differential cell count method Nom (Bld) Auto [facility] Eosinophils (Bld) [#/Vol] 0.17 10*3/uL [facility] Eosinophils/100 WBC (Bld) 1.2 % [facility] Erythrocyte distribution width (RBC) [Ratio] 14.3 % 11.5 - 15.0 % [facility] Hematocrit (Bld) [Volume fraction] 39.8 % 36.0 - 46.0 % [facility] Hemoglobin (Bld) [Mass/Vol] 13.4 g/dL 11.5 - 15.5 g/dL [facility] Immature granulocytes (Bld) [#/Vol] 0.13 10*3/uL High [facility] Immature granulocytes/100 WBC (Bld) 0.9 % [facility] Interpretation and review of laboratory results Abnormal [facility] Lymphocytes (Bld) [#/Vol] 2.96 10*3/uL [facility] Lymphocytes/100 WBC (Bld) 20.5 % [facility] MCH (RBC) [Entitic mass] 31.1 pg 26.0 - 34.0 pg [facility] MCHC (RBC) [Mass/Vol] 33.7 g/dL 30.5 - 36.0 g/dL [facility] MCV (RBC) [Entitic vol] 92.3 fL 80.0 - 100.0 fL [facility] Monocytes (Bld) [#/Vol] 0.87 10*3/uL High NINF [facility] Monocytes/100 WBC (Bld) 6.0 % [facility] Neutrophils (Bld) [#/Vol] 10.20 10*3/uL High [facility] Neutrophils/100 WBC (Bld) 70.8 % [facility] Nucleated RBC (Bld) [#/Vol] NINF [facility] Nucleated RBC/100 WBC (Bld) [Ratio] 0.0 % /100 WBC [facility] Platelet mean volume (Bld) [Entitic vol] 10.1 fL 9.0 - 12.7 fL [facility] Platelets (Bld) [#/Vol] 303 10*3/uL [facility] RBC (Bld) [#/Vol] 4.31 10*6/uL 3.90 - 5.2 0 m/uL [facility] WBC (Bld) [#/Vol] 14.41 10*3/uL High [facility] Basophils (Bld) [#/Vol] 0.08 10*3/uL Normal <0.11 [facility] Comment on above: Order Comment: Speci men Type: BLOOD SPECIMENOrdering Facility: [facility] Address: [address] [place] [address] Performed By: #### 5 7021-8 ####[facility] LABCLIA [id number] [place] [address] Basophils/100 WBC (Bld) 0.6 % Normal [facility] Comment on above: Order Comment: Speci men Type: BLOOD SPECIMENOrdering Facility: [facility] Address: [address] [place] [address] Performed By: #### 5 7021-8 ####[facility] LABCLIA [id number] [place] [address] Differential cell count method Nom (Bld) Auto Normal [facility] Comment on above: Order Comment: Speci men Type: BLOOD SPECIMENOrdering Facility: [facility] Address: [address] [place] [address] Performed By: #### 5 7021-8 ####[facility] LABCLIA [id number] [place] [address] Eosinophils (Bld) [#/Vol] 0.17 10*3/uL Normal <0.46 [facility] Comment on above: Order Comment: Speci men Type: BLOOD SPECIMENOrdering Facility: [facility] Address: [address] [place] [address] Performed By: #### 5 7021-8 ####[facility] LABCLIA [id number] [place] [address] Eosinophils/100 WBC (Bld) 1.2 % Normal [facility] Comment on above: Order Comment: Speci men Type: BLOOD SPECIMENOrdering Facility: [facility] Address: [address] [place] [address] Performed By: #### 5 7021-8 ####[facility] LABCLIA [id number] [place] [address] Erythrocyte distribution width (RBC) [Ratio] 14.3 % Normal 11.5-15.0 [facility] Comment on above: Order Comment: Speci men Type: BLOOD SPECIMENOrdering Facility: [facility] Address: [address] [place] [address] Performed By: #### 5 7021-8 ####[facility] LABCLIA [id number] [place] [address] Hematocrit (Bld) [Volume fraction] 39.8 % Normal 36.0-46.0 [facility] Comment on above: Order Comment: Speci men Type: BLOOD SPECIMENOrdering Facility: [facility] Address: [address] [place] [address] Performed By: #### 5 7021-8 ####[facility] LABCLIA [id number] [place] [address] Hemoglobin (Bld) [Mass/Vol] 13.4 g/dL Normal 11.5-15.5 [facility] Comment on above: Order Comment: Speci men Type: BLOOD SPECIMENOrdering Facility: [facility] Address: [address] [place] [address] Performed By: #### 5 7021-8 ####[facility] LABCLIA [id number] [place] [address] Immature granulocytes (Bld) [#/Vol] 0.13 10*3/uL High <0.10 [facility] Comment on above: Order Comment: Speci men Type: BLOOD SPECIMENOrdering Facility: [facility] Address: [address] [place] [address] Performed By: #### 5 7021-8 ####[facility] LABCLIA [id number] [place] [address] Immature granulocytes/100 WBC (Bld) 0.9 % Normal [facility] Comment on above: Order Comment: Speci men Type: BLOOD SPECIMENOrdering Facility: [facility] Address: [address] [place] [address] Performed By: #### 5 7021-8 ####[facility] LABCLIA [id number] [place] [address] Lymphocytes (Bld) [#/Vol] 2.96 10*3/uL Normal 1.00-4.00 [facility] Comment on above: Order Comment: Speci men Type: BLOOD SPECIMENOrdering Facility: [facility] Address: [address] [place] [address] Performed By: #### 5 7021-8 ####[facility] LABCLIA [id number] [place] [address] Lymphocytes/100 WBC (Bld) 20.5 % Normal [facility] Comment on above: Order Comment: Speci men Type: BLOOD SPECIMENOrdering Facility: [facility] Address: [address] [place] [address] Performed By: #### 5 7021-8 ####[facility] LABCLIA [id number] [place] [address] MCH (RBC) [Entitic mass] 31.1 pg Normal 26.0-34.0 [facility] Comment on above: Order Comment: Speci men Type: BLOOD SPECIMENOrdering Facility: [facility] Address: [address] [place] [address] Performed By: #### 5 7021-8 ####[facility] LABCLIA [id number] [place] [address] MCHC (RBC) [Mass/Vol] 33.7 g/dL Normal 30.5-36.0 [facility] Comment on above: Order Comment: Speci men Type: BLOOD SPECIMENOrdering Facility: [facility] Address: [address] [place] [address] Performed By: #### 5 7021-8 ####[facility] LABCLIA [id number] [place] [address] MCV (RBC) [Entitic vol] 92.3 fL Normal 80.0-100.0 [facility] Comment on above: Order Comment: Speci men Type: BLOOD SPECIMENOrdering Facility: [facility] Address: [address] [place] [address] Performed By: #### 5 7021-8 ####[facility] LABCLIA [id number] [place] [address] Monocytes (Bld) [#/Vol] 0.87 10*3/uL High <0.87 [facility] Comment on above: Order Comment: Speci men Type: BLOOD SPECIMENOrdering Facility: [facility] Address: [address] [place] [address] Performed By: #### 5 7021-8 ####[facility] LABCLIA [id number] [place] [address] Monocytes/100 WBC (Bld) 6.0 % Normal [facility] Comment on above: Order Comment: Speci men Type: BLOOD SPECIMENOrdering Facility: [facility] Address: [address] [place] [address] Performed By: #### 5 7021-8 ####[facility] LABCLIA [id number] [place] [address] Neutrophils (Bld) [#/Vol] 10.20 10*3/uL High 1.45-7.50 [facility] Comment on above: Order Comment: Speci men Type: BLOOD SPECIMENOrdering Facility: [facility] Address: [address] [place] [address] Performed By: #### 5 7021-8 ####[facility] LABCLIA [id number] [place] [address] Neutrophils/100 WBC (Bld) 70.8 % Normal [facility] Comment on above: Order Comment: Speci men Type: BLOOD SPECIMENOrdering Facility: [facility] Address: [address] [place] [address] Performed By: #### 5 7021-8 ####[facility] LABCLIA [id number] [place] [address] Nucleated RBC (Bld) [#/Vol] 10*3/uL Normal <0.01 [facility] Comment on above: Order Comment: Speci men Type: BLOOD SPECIMENOrdering Facility: [facility] Address: [address] [place] [address] Performed By: #### 5 7021-8 ####[facility] LABCLIA [id number] [place] [address] Nucleated RBC/100 WBC (Bld) [Ratio] 0.0 /100 WBC Normal [facility] Comment on above: Order Comment: Speci men Type: BLOOD SPECIMENOrdering Facility: [facility] Address: [address] [place] [address] Performed By: #### 5 7021-8 ####[facility] LABIA [id number] [place] [address] Platelet mean volume (Bld) [Entitic vol] 10.1 fL Normal 9.0-12.7 [facility] Comment on above: Order Comment: Speci men Type: BLOOD SPECIMENOrdering Facility: [facility] Address: [address] [place] [address] Performed By: #### 5 7021-8 ####[facility] LABCLIA [id number] [place] [address] Platelets (Bld) [#/Vol] 303 10*3/uL Normal 150-400 [facility] Comment on above: Order Comment: Speci men Type: BLOOD SPECIMENOrdering Facility: [facility] Address: [address] [place] [address] Performed By: #### 5 7021-8 ####[facility] LABCLIA [id number] [place] [address] RBC (Bld) [#/Vol] 4.31 10*6/uL Normal 3.90-5.20 [facility] Comment on above: Order Comment: Speci men Type: BLOOD SPECIMENOrdering Facility: [facility] Address: [address] [place] [address] Performed By: #### 5 7021-8 ####[facility] LABIA [id number] [place] [address] WBC (Bld) [#/Vol] 14.41 10*3/uL High 3.70-11.00 [facility] Comment on above: Order Comment: Speci men Type: BLOOD SPECIMENOrdering Facility: [facility] Address: [address] [place] [address] Performed By: #### 5 7021-8 ####[facility] LABIA [id number] [place] [address] Comprehensive metabolic 2000 panelon 05-19-2024 Albumin [Mass/Vol] 4.0 g/dL 3.9 - 4.9 g/dL [facility] ALP [Catalytic activity/Vol] 79 U/L 34 - 123 U/L [facility] ALT [Catalytic activity/Vol] 25 U/L 7 - 38 U/L [facility] Anion gap [Moles/Vol] 14 mmol/L 8 - 15 mmol/L [facility] AST [Catalytic activity/Vol] 12 U/L Low 13 - 35 U/L [facility] Bilirubin [Mass/Vol] mg/dL Low 0.2 - 1 .3 mg/dL [facility] Calcium [Mass/Vol] 9.4 mg/dL 8.5 - 10. 2 mg/dL [facility] Chloride [Moles/Vol] 105 mmol/L 98 - 10 7 mmol/L [facility] CO2 [Moles/Vol] 21 mmol/L Low 22 - 30 mmol/L [facility] Creatinine [Mass/Vol] 0.49 mg/dL Low 0.58 - 0.96 mg/dL [facility] GFR/1.73 sq M.predicted among non-blacks MDRD (S/P/Bld) [Vol rate/Area] 120 mL/min/{1.73_m2} - PINF [facility] Comment on above: Estimated Glomerular Filtration [...] 155 mg/dL High 74 - 99 mg/dL [facility] Comment on above: The [place] Diab[place] Association (ADA) provides guidance for [...] Standards of Medical Care in Diabetes 2016, [place] [employer]. Diabetes Care. 2016.39(Suppl 1). Interpretation and review of laboratory results Abnormal [facility] Potassium [Moles/Vol] 3.8 mmol/L 3.7 - 5.1 mmol/L [facility] Protein [Mass/Vol] 6.6 g/dL 6.3 - 8.0 g/dL [facility] Sodium [Moles/Vol] 140 mmol/L 136 - 144 mmol/L [facility] Urea nitrogen [Mass/Vol] 12 mg/dL 7 - 21 mg/dL [facility] Albumin [Mass/Vol] 4.0 g/dL Normal 3.9-4.9 [facility] Comment on above: Order Comment: Speci men Type: BLOOD SPECIMENOrdering Facility: [facility] Address: [address] [place] [address] Performed By: #### 2 4323-8 ####[facility] [id number] [place] [address] [place] ALP [Catalytic activity/Vol] 79 U/L Normal 34-123 [facility] Comment on above: Order Comment: Speci men Type: BLOOD SPECIMENOrdering Facility: [facility] Address: [address] [place] [address] Performed By: #### 2 4323-8 ####[facility] [id number] [place] [address] [place] ALT [Catalytic activity/Vol] 25 U/L Normal 7-38 [facility] Comment on above: Order Comment: Speci men Type: BLOOD SPECIMENOrdering Facility: [facility] Address: [address] [place] [address] Performed By: #### 2 4323-8 ####[facility] [id number] [place] [address] [place] Anion gap [Moles/Vol] 14 mmol/L Normal 8-15 [facility] Comment on above: Order Comment: Speci men Type: BLOOD SPECIMENOrdering Facility: [facility] Address: [address] [place] [address] Performed By: #### 2 4323-8 ####[facility] [id number] [place] [address] [place] AST [Catalytic activity/Vol] 12 U/L Low 13-35 [facility] Comment on above: Order Comment: Speci men Type: BLOOD SPECIMENOrdering Facility: [facility] Address: [address] [place] [id number] Performed By: #### 2 4323-8 ####[facility] [id number] [place] [id number] [place] Bilirubin [Mass/Vol] mg/dL Low 0.2-1.3 [facility] Comment on above: Order Comment: Speci men Type: BLOOD SPECIMENOrdering Facility: [facility] Address: [address] [place] [address] Performed By: #### 2 4323-8 ####[facility] [id number] [place] [address] [place] Calcium [Mass/Vol] 9.4 mg/dL Normal 8.5-10.2 [facility] Comment on above: Order Comment: Speci men Type: BLOOD SPECIMENOrdering Facility: [facility] Address: [address] [place] [address] Performed By: #### 2 4323-8 ####[facility] [id number] [place] [address] [place] Chloride [Moles/Vol] 105 mmol/L Normal 98-107 [facility] Comment on above: Order Comment: Speci men Type: BLOOD SPECIMENOrdering Facility: [facility] Address: [address] [place] [address] Performed By: #### 2 4323-8 ####[facility] [id number] [place] [id number] [place] CO2 [Moles/Vol] 21 mmol/L Low 22-30 [facility] [facility] Comment on above: Order Comment: Speci men Type: BLOOD SPECIMENOrdering Facility: [facility] Address: [address] [place], [place] [id number] Performed By: #### 2 4323-8 ####[facility] [id number] [place] [address] [place] Creatinine [Mass/Vol] 0.49 mg/dL Low 0.58-0.96 [facility] Comment on above: Order Comment: Semaj cortés Type: BLOOD SPECIMENOrdering Facility: [facility] Address: [address] [place] [address] Performed By: #### 2 4323-8 ####[facility] [id number] [place] [address] [place] Creatinine and Glomerular filtration rate.predicted panel (S/P/Bld) 120 mL/min/1.73m??? Normal >=60 [facility] Comment on above: Order Comment: Semaj cortés Type: BLOOD SPECIMENOrdering Facility: [facility] Address: [address] [place] [address] Result Comment: Erin mated Glomerular Filtration Rate [...] GFR. Performed By: #### 2 4323-8 ####[facility] [id number] [place] [address] [place] Glucose [Mass/Vol] 155 mg/dL High 74-99 [facility] Comment on above: Order Comment: Semaj cortés Type: BLOOD SPECIMENOrdering Facility: [facility] Address: [address] [place] [address] Result Comment: The [place] [employer] (ADA) provides guidance for [...] Standards of Medical Care in Diabetes 2016, [place] [employer]. Diabetes Care. 2016.39(Suppl 1). Performed By: #### 2 4323-8 ####[facility] [id number] [place] [address] [place] Potassium [Moles/Vol] 3.8 mmol/L Normal 3.7-5.1 [facility] Comment on above: Order Comment: Speci men Type: BLOOD SPECIMENOrdering Facility: [facility] Address: [address] [place] [address] Performed By: #### 2 4323-8 ####[facility] [id number] [place] [address] [place] Protein [Mass/Vol] 6.6 g/dL Normal 6.3-8.0 [facility] Comment on above: Order Comment: Speci men Type: BLOOD SPECIMENOrdering Facility: [facility] Address: [address] [place] [address] Performed By: #### 2 4323-8 ####[facility] [id number] [place] [address] [place] Sodium [Moles/Vol] 140 mmol/L Normal 136-144 [facility] Comment on above: Order Comment: Speci men Type: BLOOD SPECIMENOrdering Facility: [facility] Address: [address] [place] [address] Performed By: #### 2 4323-8 ####[facility] [id number] [place] [address] [place] Urea nitrogen [Mass/Vol] 12 mg/dL Normal 7-21 [facility] Comment on above: Order Comment: Speci men Type: BLOOD SPECIMENOrdering Facility: [facility] Address: [address] [place] [address] Performed By: #### 2 4323-8 ####[facility] [id number] [place] [address] [place] ESR Westergren method (Bld) [Velocity]on 05-19-2024 ESR (Bld) [Velocity] 21 mm/h High [facility] Interpretation and review of laboratory results Abnormal [facility] ESR (Bld) [Velocity] 21 mm/h High 0-20 [facility] Comment on above: Order Comment: Speci men Type: BLOOD SPECIMENOrdering Facility: [facility] Address: [address] [place] [address] Performed By: #### 4 537-7 ####[facility] [id number] [place] [address] [place] FERRITIN BLDon 05-19-2024 Ferritin [Mass/Vol] 20.6 ng/mL 14.7 - 2 05.1 ng/mL [facility] FOLATE SERUMon 05-19-2024 Folate [Mass/Vol] 11.1 ng/mL 4.7 - PINF ng/mL [facility] Ferritin SerPl-mCncon 2023 Ferritin [Mass/Vol] 20.6 ng/mL Normal 14.7-205.1 [facility] Comment on above: Order Comment: Speci men Type: BLOOD SPECIMENOrdering Facility: [facility] Address: [address] [place] [address] Performed By: #### 5 0190-8, 2276-4, 2284-8, 2132-9 ####[facility] [id number] [place] [address] [place] Folate SerPl-mCncon 05-19-20 24 Folate [Mass/Vol] 11.1 ng/mL Normal >4.7 [facility] Comment on above: Order Comment: Speci men Type: BLOOD SPECIMENOrdering Facility: [facility] Address: [address] [place] [address] Performed By: #### 5 0190-8, 6-4, 8, 2132-01 ####[facility] [id number] [address] [address] [place] Iron and Iron binding capaci ty panelon 05-19-2024 Interpretation and review of laboratory results Abnormal [facility] Iron [Mass/Vol] 47 ug/dL 41 - 186 ug/dL [facility] Iron binding capacity [Mass/Vol] 420 ug/dL High 232 - 386 ug/dL [facility] Iron/TIBC [Molar ratio] 11.2 % Low 15.0 - 57.0 % [facility] Iron [Mass/Vol] 47 ug/dL Normal 41-186 [facility] Comment on above: Order Comment: Speci men Type: BLOOD SPECIMENOrdering Facility: [facility] Address: [address] [place] [address] Performed By: #### 5 0190-8, 2275-4, 2283-12, 2132-01 ####[facility] [id number] [place] [id number] [place] Iron binding capacity [Mass/Vol] 420 ug/dL High 232-386 [facility] Comment on above: Order Comment: Speci men Type: BLOOD SPECIMENOrdering Facility: [facility] Address: [address] [place] [address] Performed By: #### 5 0190-8, 2275-4, 2283-12, 2132-01 ####[facility] [id number] [place] [id number] [place] Iron/TIBC [Molar ratio] 11.2 % Low 15.0-57.0 [facility] Comment on above: Order Comment: Speci men Type: BLOOD SPECIMENOrdering Facility: [facility] Address: [address] [place] [address] Performed By: #### 5 0190-8, 2275-4, 8, 2132-01 ####[facility] [id number] [address] [address] [place] No Panel Informationon 05-19 Interpretation and review of laboratory results Normal [facility] VITAMIN B12 BLOODon 05-19-20 24 Cobalamin (Vitamin B12) [Mass/Vol] 632 pg/mL 232 - 1245 pg/mL [facility] Vit B12 SerPl-mCncon 024 Cobalamin (Vitamin B12) [Mass/Vol] 632 pg/mL Normal 232-1245 [facility] Comment on above: Order Comment: Speci men Type: BLOOD SPECIMENOrdering Facility: [facility] Address: [address] [place] [address] Performed By: #### 5 0190-8, 2276-4, 2284-8, 2132-9 ####[facility] [id number] [place] [id number] [place] CNNURSEon 04-26-2024 CNNURSE Normal [facility] CNPNon 04-10-2024 CNPN Normal [facility] ALL CBC WITH AUTO DIFFon BASOPHILS ABSOLUTE AUTO 0.1 [facility] Basophils/100 WBC (Bld) 0.4 % 0.2 - 2.0 % [facility] Eosinophils/100 WBC (Bld) 0.4 % Low 0.9 - 7.0 % [facility] Erythrocyte distribution width (RBC) [Ratio] 15.1 % High 11.0 - 15.0 % [facility] Hematocrit (Bld) [Volume fraction] 39.7 % 36.0 - 48.0 % [facility] Hemoglobin (Bld) [Mass/Vol] 13 g/dL 12.0 - 16.0 g/dL [facility] IMMATURE GRANULOCYTES ABS AUTO 0.1 High [facility] Immature granulocytes/100 WBC (Bld) 0.9 % High 0.0 - 0.5 % [facility] Interpretation and review of laboratory results Abnormal [facility] LYMPHOCYTES ABSOLUTE AUTO 2.1 [facility] Lymphocytes/100 WBC (Bld) 18.4 % Low 20.5 - 60.0 % [facility] MCH (RBC) [Entitic mass] 30.9 pg 26.7 - 34.0 pg [facility] MCHC (RBC) [Mass/Vol] 32.7 g/dL 29.9 - 35.2 g/dL [facility] MCV (RBC) [Entitic vol] 94.3 fL 81.0 - 99.0 fL [facility] MONOCYTES ABSOLUTE AUTO 0.8 [facility] Monocytes/100 WBC (Bld) 6.7 % 1.7 - 12.0 % [facility] NEUTROPHILS ABSOLUTE AUTO 8.3 High [facility] Neutrophils/100 WBC (Bld) 73.2 % 43.0 - 75.0 % [facility] Platelet mean volume (Bld) [Entitic vol] 10.1 fL 9.5 - 13.5 fL [facility] TBH EO # 0.1 [facility] TB PLT 326 [facility] RBC 4.21 [facility] WBC 11.4 High [facility] ALL THYROID STIM HORMONEon 06-06-2023 Interpretation and review of laboratory results Abnormal [facility] TSH Qn 0.333 m[IU]/L Low [facility] ALL THYROXINE (T4) FREEon Free T4 [Mass/Vol] 1.01 ng/dL 0.76 - 1. 46 ng/dL [facility]CF APTTon 04-06-2024 aPTT Coag (Bld) [Time] 25.6 s [facility] MLR HEMOGLOBIN A1Con 024 Glucose [Mass/Vol] 134 mg/dL [facility] HbA1c (Bld) [Mass fraction] 6.3 % High 4.5 - 6.2 % [facility] Comment on above: ADA RECOMMENDED LIMI T 4.0 - 6.0 ADA THERAPEUTIC TARGET < 7.0 ACTION SUGGESTED > 7.0 Interpretation and review of laboratory results Abnormal [facility] No Panel Informationon 04-06 [facility] SRMCOH PROTHROMBIN TIME INR W/O COUMon 04-06-2024 PT Coag (PPP) [Time] 9.6 s [facility] INR <0.93 [facility] Comment on above: DESIRED INR: 2.0-3.0 CONDITIONS NOT LISTED BELOW 2.5-3.5 FOR PROSTHETIC HEART VALVE REPLACEMENT 2.5-3.5 RECURRENT THROMBOSIS TB PREG QUANT HCGon 024 HCG QUANTITATIVE <1 mIU/mL [facility] Comment on above: 5-50 0.2-1 WEEK 50-500 1-2 WEEKS 100-5,000 2-3 WEEKS 500-10,000 3-4 WEEKS 1,000-50,000 4-5 WEEKS 10,000-100,000 5-6 WEEKS 15,000-200,000 6-8 WEEKS 10,000-100,000 2-3 MONTHS CNPNon 04-02-2024 CNPN Normal [facility] 25(OH)D3 SerPl-mCncon 2023 25-hydroxyvitamin D3 [Mass/Vol] 19.9 ng/mL Low 31.0-80.0 [facility] Comment on above: Order Comment: Speci men Type: BLOOD SPECIMENOrdering Facility: [facility] Address: [address] [place] [address] Result Comment: Clas sification of 25 [place] Vitamin D status:Deficiency/Insufficiency: < or = 30 ng/ml.Sufficiency/Optimal Levels: 31-80 ng/mLToxicity: > 100 ng/mL.Test performed by chemiluminescent immunoassay. Performed By: #### 1 989-3 ####[facility] [id number] [place] [address] [place] [facility] BLOOD TB SCREENon 03-23-2024 M. tuberculosis tuberculin stim IFN-g Ql (Bld) Negative Normal [facility] Comment on above: Order Comment: Speci men Type: BLOOD SPECIMENOrdering Facility: [facility] Address: [address] [place] [address] Performed By: #### I NFTBP ####[facility] [id number] [place] [address] [place] MITOGEN MINUS NIL >10.00 Normal >=0.50 [facility] Comment on above: Order Comment: Speci men Type: BLOOD SPECIMENOrdering Facility: [facility] Address: [address] [place] [address] Performed By: #### I NFTBP ####[facility] [id number] [place] [address] [place] TB GAMMA INTERPRETATION Normal [facility] Comment on above: Order Comment: Speci men Type: BLOOD SPECIMENOrdering Facility: [facility] Address: [address] [place] [address] Performed By: #### I NFTBP ####[facility] [id number] [place] [address] [place] TB NIL <0.00 Normal <=8.00 [facility] Comment on above: Order Comment: Speci men Type: BLOOD SPECIMENOrdering Facility: [facility] Address: [address] [place] [address] Performed By: #### I NFTBP ####[facility] [id number] [place] [address] [place] TB1 AG MINUS NIL 0.00 IU/mL Normal <0.[address] [facility] Comment on above: Order Comment: Speci men Type: BLOOD SPECIMENOrdering Facility: [facility] Address: [address] [place] [address] Performed By: #### I NFTBP ####[facility] [id number] [place] [address] [place] TB2 AG MINUS NIL 0.00 IU/mL Normal <0.[address] [facility] Comment on above: Order Comment: Speci men Type: BLOOD SPECIMENOrdering Facility: [facility] Address: [address] [place] [address] Performed By: #### I NFTBP ####[facility] [id number] [place] [address] [place] Bacteria Bld Culton 03-23-20 24 Bacteria identified Cx Nom (Bld) CULTURE, BLOOD: No growth 5 days Normal [facility] Comment on above: Performed By: #### 6 00-7 ####[facility] [id number] [facility] [id number] [id number] [place] CBC W Auto Differential pane l (Bld)on 03-23-2024 Basophils (Bld) [#/Vol] 0.06 10*3/uL Normal <0.11 [facility] Comment on above: Order Comment: Speci men Type: BLOOD SPECIMENOrdering Facility: [facility] Address: [address] [place] [address] Performed By: #### 5 7021-8 ####[facility] LABCLIA [id number] [place] [address] Basophils/100 WBC (Bld) 0.5 % Normal [facility] Comment on above: Order Comment: Speci men Type: BLOOD SPECIMENOrdering Facility: [facility] Address: [address] [place] [address] Performed By: #### 5 7021-8 ####[facility]CLIA [id number] [place] [address] Differential cell count method Nom (Bld) Auto Normal [facility] Comment on above: Order Comment: Speci men Type: BLOOD SPECIMENOrdering Facility: [facility] Address: [address] [place] [address] Performed By: #### 5 7021-8 ####[facility] LABCLIA [id number] [place] [address] Eosinophils (Bld) [#/Vol] 0.13 10*3/uL Normal <0.46 [facility] Comment on above: Order Comment: Speci men Type: BLOOD SPECIMENOrdering Facility: [facility] Address: [address] [place] [address] Performed By: #### 5 7021-8 ####[facility]CL[facility] [id number] [place] [address] Eosinophils/100 WBC (Bld) 1.0 % Normal [facility] Comment on above: Order Comment: Speci men Type: BLOOD SPECIMENOrdering Facility: [facility] Address: [address] [place] [address] Performed By: #### 5 7021-8 ####[facility]CLIA [id number] [place] [address] Erythrocyte distribution width (RBC) [Ratio] 15.2 % High 11.5-15.0 [facility] Comment on above: Order Comment: Speci men Type: BLOOD SPECIMENOrdering Facility: [facility] Address: [address] [place] [address] Performed By: #### 5 7021-8 ####[facility] LABCLIA [id number] [place] [address] Hematocrit (Bld) [Volume fraction] 39.3 % Normal 36.0-46.0 [facility] Comment on above: Order Comment: Speci men Type: BLOOD SPECIMENOrdering Facility: [facility] Address: [address] [place] [address] Performed By: #### 5 7021-8 ####[facility]CL[facility] [id number] [place] [address] Hemoglobin (Bld) [Mass/Vol] 13.1 g/dL Normal 11.5-15.5 [facility] Comment on above: Order Comment: Speci men Type: BLOOD SPECIMENOrdering Facility: [facility] Address: [address] [place] [address] Performed By: #### 5 7021-8 ####[facility]CLIA [id number] [place] [address] Immature granulocytes (Bld) [#/Vol] 0.12 10*3/uL High <0.10 [facility] Comment on above: Order Comment: Speci men Type: BLOOD SPECIMENOrdering Facility: [facility] Address: [address] [place] [address] Performed By: #### 5 7021-8 ####[facility]CLIA [id number] [place] [address] Immature granulocytes/100 WBC (Bld) 0.9 % Normal [facility] Comment on above: Order Comment: Speci men Type: BLOOD SPECIMENOrdering Facility: [facility] Address: [address] [place] [address] Performed By: #### 5 7021-8 ####[facility]CLIA [id number] [place] [address] Lymphocytes (Bld) [#/Vol] 2.03 10*3/uL Normal 1.00-4.00 [facility] Comment on above: Order Comment: Speci men Type: BLOOD SPECIMENOrdering Facility: [facility] Address: [address] [place] [address] Performed By: #### 5 7021-8 ####[facility] LABIA [id number] [place] [address] Lymphocytes/100 WBC (Bld) 15.7 % Normal [facility] Comment on above: Order Comment: Speci men Type: BLOOD SPECIMENOrdering Facility: [facility] Address: [address] [place] [address] Performed By: #### 5 7021-8 ####[facility] LABCLIA [id number] [place] [address] MCH (RBC) [Entitic mass] 31.3 pg Normal 26.0-34.0 [facility] Comment on above: Order Comment: Speci men Type: BLOOD SPECIMENOrdering Facility: [facility] Address: [address] [place] [address] Performed By: #### 5 7021-8 ####[facility] LABIA [id number] [place] [address] MCHC (RBC) [Mass/Vol] 33.3 g/dL Normal 30.5-36.0 [facility] Comment on above: Order Comment: Speci men Type: BLOOD SPECIMENOrdering Facility: [facility] Address: [address] [place] [address] Performed By: #### 5 7021-8 ####[facility]CLIA [id number] [place] [address] MCV (RBC) [Entitic vol] 93.8 fL Normal 80.0-100.0 [facility] Comment on above: Order Comment: Speci men Type: BLOOD SPECIMENOrdering Facility: [facility] Address: [address] [place] [address] Performed By: #### 5 7021-8 ####[facility] LABCLIA [id number] [place] [address] Monocytes (Bld) [#/Vol] 0.65 10*3/uL Normal <0.87 [facility] Comment on above: Order Comment: Speci men Type: BLOOD SPECIMENOrdering Facility: [facility] Address: [address] [place] [address] Performed By: #### 5 7021-8 ####[facility]CLIA [id number] [place] [address] Monocytes/100 WBC (Bld) 5.0 % Normal [facility] Comment on above: Order Comment: Speci men Type: BLOOD SPECIMENOrdering Facility: [facility] Address: [address] [place] [address] Performed By: #### 5 7021-8 ####[facility] LABCLIA [id number] [place] [address] Neutrophils (Bld) [#/Vol] 9.90 10*3/uL High 1.45-7.50 [facility] Comment on above: Order Comment: Speci men Type: BLOOD SPECIMENOrdering Facility: [facility] Address: [address] [place] [address] Performed By: #### 5 7021-8 ####[facility]CLIA [id number] [place] [address] Neutrophils/100 WBC (Bld) 76.9 % Normal [facility] Comment on above: Order Comment: Speci men Type: BLOOD SPECIMENOrdering Facility: [facility] Address: [address] [place] [address] Performed By: #### 5 7021-8 ####[facility] LABCLIA [id number] [place] [address] Nucleated RBC (Bld) [#/Vol] 10*3/uL Normal <0.01 [facility] Comment on above: Order Comment: Speci men Type: BLOOD SPECIMENOrdering Facility: [facility] Address: [address] [place] [address] Performed By: #### 5 7021-8 ####[facility] LABCLIA [id number] [place] [address] Nucleated RBC/100 WBC (Bld) [Ratio] 0.0 /100 WBC Normal [facility] Comment on above: Order Comment: Speci men Type: BLOOD SPECIMENOrdering Facility: [facility] Address: [address] [place] [address] Performed By: #### 5 7021-8 ####[facility] LABIA [id number] [place] [address] Platelet mean volume (Bld) [Entitic vol] 10.0 fL Normal 9.0-12.7 [facility] Comment on above: Order Comment: Speci men Type: BLOOD SPECIMENOrdering Facility: [facility] Address: [address] [place] [address] Performed By: #### 5 7021-8 ####[facility] LABCLIA [id number] [place] [address] Platelets (Bld) [#/Vol] 262 10*3/uL Normal 150-400 [facility] Comment on above: Order Comment: Speci men Type: BLOOD SPECIMENOrdering Facility: [facility] Address: [address] [place] [address] Performed By: #### 5 7021-8 ####[facility] LABCLIA [id number] [place] [address] RBC (Bld) [#/Vol] 4.19 10*6/uL Normal 3.90-5.20 [facility] Comment on above: Order Comment: Speci men Type: BLOOD SPECIMENOrdering Facility: [facility] Address: [address] [place] [address] Performed By: #### 5 7021-8 ####[facility] LABCLIA [id number] [place] [address] WBC (Bld) [#/Vol] 12.89 10*3/uL High 3.70-11.00 [facility] Comment on above: Order Comment: Speci men Type: BLOOD SPECIMENOrdering Facility: [facility] Address: [address] [place] [address] Performed By: #### 5 7021-8 ####[facility] LABCLIA [id number] [place] [address] CNNURSEon 03-23-2024 CNNURSE Normal [facility] CRP SerPl-mCncon 03-23-2024 CRP [Mass/Vol] 0.3 mg/dL Normal <0.9 [facility] Comment on above: Order Comment: Speci men Type: BLOOD SPECIMENOrdering Facility: [facility] Address: [address] [place] [address] Performed By: #### 5 0190-8, 2276-4, 1987- ####[facility] [id number] [facility] [id number] [place] [address] [place] Comprehensive metabolic 2000 panelon 03-23-2024 Albumin [Mass/Vol] 3.9 g/dL Normal 3.9-4.9 [facility] Comment on above: Order Comment: Speci men Type: BLOOD SPECIMENOrdering Facility: [facility] Address: [address] [place] [address] Performed By: #### 2 4323-8 ####[facility] [id number] [place] [address] [place] ALP [Catalytic activity/Vol] 70 U/L Normal 34-123 [facility] Comment on above: Order Comment: Speci men Type: BLOOD SPECIMENOrdering Facility: [facility] Address: [address] [place] [address] Performed By: #### 2 4323-8 ####[facility] [id number] [place] [address] [place] ALT [Catalytic activity/Vol] 27 U/L Normal 7-38 [facility] Comment on above: Order Comment: Speci men Type: BLOOD SPECIMENOrdering Facility: [facility] Address: [address] [place] [address] Performed By: #### 2 4323-8 ####[facility] [id number] [place] [address] [place] Anion gap [Moles/Vol] 15 mmol/L Normal 8-15 [facility] Comment on above: Order Comment: Speci men Type: BLOOD SPECIMENOrdering Facility: [facility] Address: [address] [place] [address] Performed By: #### 2 4323-8 ####[facility] [id number] [place] [address] [place] AST [Catalytic activity/Vol] 20 U/L Normal 13-35 [facility] Comment on above: Order Comment: Speci men Type: BLOOD SPECIMENOrdering Facility: [facility] Address: [address] [place], [place] [id number] Performed By: #### 2 4323-8 ####[facility] [id number] [place] [address] [place] Bilirubin [Mass/Vol] mg/dL Low 0.2-1.3 [facility] Comment on above: Order Comment: Speci men Type: BLOOD SPECIMENOrdering Facility: [facility] Address: [address] [id number] Performed By: #### 2 4323-8 ####[facility] [id number] [place] [address] [place] Calcium [Mass/Vol] 9.2 mg/dL Normal 8.5-10.2 [facility] Comment on above: Order Comment: Speci men Type: BLOOD SPECIMENOrdering Facility: [facility] Address: [address] [place] [address] Performed By: #### 2 4323-8 ####[facility] [id number] [place] [address] [place] Chloride [Moles/Vol] 104 mmol/L Normal 98-107 [facility] Comment on above: Order Comment: Speci men Type: BLOOD SPECIMENOrdering Facility: [facility] Address: [address] [place] [address] Performed By: #### 2 4323-8 ####[facility] [id number] [place] [address] [place] CO2 [Moles/Vol] 20 mmol/L Low 22-30 [facility] Comment on above: Order Comment: Speci men Type: BLOOD SPECIMENOrdering Facility: [facility] Address: [address] [place], [place] [id number] Performed By: #### 2 4323-8 ####[facility] [id number] [place] [address] [place] Creatinine [Mass/Vol] 0.61 mg/dL Normal 0.58-0.96 [facility] Comment on above: Order Comment: Speci men Type: BLOOD SPECIMENOrdering Facility: [facility] Address: [address] [place], [place] [id number] Performed By: #### 2 4323-8 ####[facility] [id number] [place] [address] [place] Creatinine and Glomerular filtration rate.predicted panel (S/P/Bld) 114 mL/min/1.73m??? Normal >=60 [facility] Comment on above: Order Comment: Semaj cortés Type: BLOOD SPECIMENOrdering Facility: [facility] Address: [address] [place] [address] Result Comment: Erin mated Glomerular Filtration Rate [...] GFR. Performed By: #### 2 4323-8 ####[facility] [id number] [place] [address] [place] Glucose [Mass/Vol] 152 mg/dL High 74-99 [facility] Comment on above: Order Comment: Semaj cortés Type: BLOOD SPECIMENOrdering Facility: [facility] Address: [address] [place] [address] Result Comment: The [place] Diabetes Association (ADA) provides guidance for [...] Standards of Medical Care in Diabetes 2016, [place] [employer]. Diabetes Care. 2016.39(Suppl 1). Performed By: #### 2 4323-8 ####[facility] [id number] [place] [address] [place] Potassium [Moles/Vol] 4.3 mmol/L Normal 3.7-5.1 [facility] Comment on above: Order Comment: Speci men Type: BLOOD SPECIMENOrdering Facility: [facility] Address: [address] [place] [address] Performed By: #### 2 4323-8 ####[facility] [id number] [place] [address] [place] Protein [Mass/Vol] 6.6 g/dL Normal 6.3-8.0 [facility] Comment on above: Order Comment: Speci men Type: BLOOD SPECIMENOrdering Facility: [facility] Address: [address] [place] [address] Performed By: #### 2 4323-8 ####[facility] [id number] [place] [address] [place] Sodium [Moles/Vol] 139 mmol/L Normal 136-144 [facility] Comment on above: Order Comment: Speci men Type: BLOOD SPECIMENOrdering Facility: [facility] Address: [address] [place] [address] Performed By: #### 2 4323-8 ####[facility] [id number] [place] [address] [place] Urea nitrogen [Mass/Vol] 20 mg/dL Normal 7-21 [facility] Comment on above: Order Comment: Speci men Type: BLOOD SPECIMENOrdering Facility: [facility] Address: [address] [place] [address] Performed By: #### 2 4323-8 ####[facility] [id number] [place] [address] [place] ESR Westergren method (Bld) [Velocity]on 03-23-2024 ESR (Bld) [Velocity] 27 mm/h High 0-20 [facility] Comment on above: Order Comment: Speci men Type: BLOOD SPECIMENOrdering Facility: [facility] Address: [address] [place], [place] [address] Performed By: #### 4 537-7 ####[facility] [id number] [place] [address] [place] Ferritin SerP-[facility] 2023 Ferritin [Mass/Vol] 33.3 ng/mL Normal 14.7-205.1 [facility] Comment on above: Order Comment: Speci men Type: BLOOD SPECIMENOrdering Facility: [facility] Address: [address] [place] [address] Performed By: #### 5 0190-8, 2276-4, 1987-09 ####[facility] [id number] [place] [address] [place] Folate SerPl-ncon 03-23-20 Folate [Mass/Vol] 13.0 ng/mL Normal >4.7 [facility] Comment on above: Order Comment: Speci men Type: BLOOD SPECIMENOrdering Facility: [facility] Address: [address] [place] [address] Performed By: #### 2 132-9, 2284-8 ####[facility] [id number] [place] [address] [place] HCG ( test) Ql (U)o n 03-23-2024 Interpretation and review of laboratory results Normal [facility] Preg Test, Ur Negative Negative [facility] IMMUNOGLOBULINS,IGG,IGA,IGMo n 03-23-2024 IgA [Mass/Vol] 171 mg/dL Normal 70-400 [facility] Comment on above: Order Comment: Speci men Type: BLOOD SPECIMENOrdering Facility: [facility] Address: [address] [place] [address] Performed By: #### S ERNBAM ####[facility] [id number] [place] [address] [place] IgG [Mass/Vol] 476 mg/dL Low 700-1600 [facility] Comment on above: Order Comment: Speci men Type: BLOOD SPECIMENOrdering Facility: [facility] Address: [address] [place] [address] Performed By: #### S ERIMM ####[facility] [id number] [place] [id number] [place] IgM [Mass/Vol] 373 mg/dL High 40-230 [facility] Comment on above: Order Comment: Speci men Type: BLOOD SPECIMENOrdering Facility: [facility] Address: [address] [place] [address] Performed By: #### S ERIMM ####[facility] [id number] [place] [address] [place] Iron and Iron binding capaci ty panelon 03-23-2024 Iron [Mass/Vol] 67 ug/dL Normal 41-186 [facility] Comment on above: Order Comment: Speci men Type: BLOOD SPECIMENOrdering Facility: [facility] Address: [address] [place] [address] Performed By: #### 5 0190-8, 2275-08, 1987-09 ####[facility] [id number] [place] [address] [place] Iron binding capacity [Mass/Vol] 399 ug/dL High 232-386 [facility] Comment on above: Order Comment: Speci men Type: BLOOD SPECIMENOrdering Facility: [facility] Address: [address] [place] [address] Performed By: #### 5 0190-8, 2275-08, 1987-09 ####[facility] [id number] [place] [address] [place] Iron/TIBC [Molar ratio] 16.8 % Normal 15.0-57.0 [facility] Comment on above: Order Comment: Speci men Type: BLOOD SPECIMENOrdering Facility: [facility] Address: [address] [place] [address] Performed By: #### 5 0190-8, 2276-4, 1987-09 ####[facility] [id number] [address] [place] Urinalysis macro (dipstick) panel (U)on 03-23-2024 Bilirubin, UA Negative Negative - 4(70) +++ mg/dL [facility] Blood, UA Positive Negative - 50 Dusty/mcL [facility] Comment on above: large Clarity, UA Cloudy [facility] Color, UA Dark Georgie [facility] Glucose, UA Positive Negative - 2000(110) ++++ mg/dL [facility] Comment on above: 100 mg Interpretation and review of laboratory results Abnormal [facility] Ketones, UA Negative Negative - 160(16) ++++ mg/dL [facility] Leukocytes, UA Positive Negative - 500+++ Andi/mcL [facility] Comment on above: small Nitrite, UA Negative Negative - Positive [facility] pH, UA 5.5 5 - 9 [facility] Protein, UA Positive Negative - 2000(20) ++++ mg/dL [facility] Comment on above: 30 mg Spec Grav, UA 1.03 1 - 1.03 [facility] Urobilinogen, UA 0.2 0.2 - 12 mg/dL [facility] Vit B12 SerPl-mCncon 024 Cobalamin (Vitamin B12) [Mass/Vol] 607 pg/mL Normal 232-1245 [facility] Comment on above: Order Comment: Speci men Type: BLOOD SPECIMENOrdering Facility: [facility] Address: [address] [place] [address] Performed By: #### 2 132-9, 2284-8 ####[facility] [id number] [address] [place] Office Visiton 03-08-2024 Follow-up visit [id number] Ariadna Haley 1980 F Date Provider Department Center 03/08/2024 [facility] Family History Problem Relation Age of Onset Heart failure Maternal Grandmother Heart attack Maternal Grandfather Family Status - Relation Status Age at Maternal Grandmother Maternal Grandfather Level of Service:[address] [place] OFFICE/OUTPATIENT NEW MODERATE MDM 45 MINUTES Normal [facility] HCG ( test) Marcelo d Ql (U)Ordered By: Adolfo Kang on 02-16-2024 HCG ( test) Ql (U) Negative [facility] ECG 12 Leadon 07-13-2023 ECG revealed normal sinus rhythm [facility] Work Phone: CBC AUTO DIFFon 09-24-2022 BASO # 0.1 103/ul Normal 0.0-0.1 [facility] Comment on above: Performed By: #### U AMIC #### [facility] [address] [place] [address] Dr. Manda York Basophils/100 WBC (Bld) 0.6 % Normal 0.2-2.0 [facility] Comment on above: Performed By: #### U AMIC #### [facility] [address] [address] [address] Manda York EO # 0.1 103/ul Normal 0.0-0.7 [facility] Comment on above: Performed By: #### U AMIC #### [facility] [address] [address] [address] Manda York Eosinophils/100 WBC (Bld) 0.6 % Critically low 0.9-7.0 [facility] Comment on above: Performed By: #### U AMIC #### [facility] [address] [address] [address] Manda York Erythrocyte distribution width (RBC) [Ratio] 14.6 % Normal 11.0-15.0 [facility] Comment on above: Performed By: #### U AMIC #### [facility] [address] [address] [address] Manda York Hematocrit (Bld) [Volume fraction] 43.4 % Normal 36.0-48.0 [facility] Comment on above: Performed By: #### U AMIC #### [facility] [address] [place] [address] Dr. Manda York Hemoglobin (Bld) [Mass/Vol] 13.7 g/dL Normal 12.0-16.0 [facility] Comment on above: Performed By: #### U AMIC #### [facility] [address] [address] [address] Manda York IG # 0.12 10e3/ul Critically high 0.00-0.03 [facility] Comment on above: Performed By: #### U AMIC #### [facility] [address] [place] [address] Dr. Manda York IG % 0.8 % Critically high 0.0-0.5 [facility] Comment on above: Performed By: #### U AMIC #### [facility] [address] [place] [address] Dr. Manda York LYMPH # 2.6 103/ul Normal 1.2-3.8 [facility] Comment on above: Performed By: #### U AMIC #### [facility] [address] [place] [address] Dr. Manda York Lymphocytes/100 WBC (Bld) 18.3 % Critically low 20.5-60.0 [facility] Comment on above: Performed By: #### U AMIC #### [facility] [address] [place] [address] Dr. Manda York MANUAL DIFF REQ NO Normal [facility] Comment on above: Performed By: #### U AMIC #### [facility] [address] [address] [address] Manda York MCH (RBC) [Entitic mass] 29.0 pg Normal 26.7-34.0 [facility] Comment on above: Performed By: #### U AMIC #### [facility] [address] [place] [address] Dr. Manda York MCHC (RBC) [Mass/Vol] 31.6 g/dL Normal 29.9-35.2 [facility] Comment on above: Performed By: #### U AMIC #### [facility] [address] [place] [address] Dr. Manda York MCV (RBC) [Entitic vol] 91.8 fL Normal 81.0-99.0 [facility] Comment on above: Performed By: #### U AMIC #### [facility] [address] [place] [address] Dr. Manda York MONO # 0.7 103/ul Normal 0.3-0.8 [facility] Comment on above: Performed By: #### U AMIC #### [facility] [address] [place] [address] Dr. Manda York Monocytes/100 WBC (Bld) 5.1 % Normal 1.7-12.0 [facility] Comment on above: Performed By: #### U AMIC #### [facility] [address] [place] [address] Dr. Manda York NEUT # 10.6 103/ul Critically high 1.4-6.5 [facility] Comment on above: Performed By: #### U AMIC #### [facility] [address] [place] [address] Dr. Manda York Neutrophils/100 WBC (Bld) 74.6 % Normal 43.0-75.0 [facility] Comment on above: Performed By: #### U AMIC #### [facility] [address] [place] [address] Dr. Manda York Platelet mean volume (Bld) [Entitic vol] 9.4 fL Critically low 9.5-13.5 [facility] Comment on above: Performed By: #### U AMIC #### [facility] [address] [place] [address] Dr. Manda York PLT 307 103/ul Normal 150-450 [facility] Comment on above: Performed By: #### U AMIC #### [facility] [address] [place] [address] Dr. Manda York RBC 4.73 106/ul Normal 4.20-5.40 [facility] Comment on above: Performed By: #### U AMIC #### [facility] [address] [place] [address] Dr. Manda York WBC 14.2 103/ul Critically high 4.0-11.0 [facility] Comment on above: Performed By: #### U AMIC #### [facility] [address] [place] [address] Dr. Manda York FREE T4on 09-24-2022 Free T4 [Mass/Vol] 1.31 ng/dL Normal 0.76-1.46 [facility] Comment on above: Performed By: #### F T4 #### [facility] [address] [place] [address] Dr. Manda York GLYCOHEMOGLOBIN A1Con 2022 ADA RECOMMENDATION SEE BELOW Normal [facility] Comment on above: Result Comment: ADA RECOMMENDED LIMIT 4.0 - 6.0 ADA THERAPEUTIC TARGET < 7.0 ACTION SUGGESTED > 7.0 Performed By: #### A 1C #### [facility] [address] [place] [address] Dr. Manda York Glucose [Mass/Vol] 120 mg/dL Normal [facility] Comment on above: Performed By: #### A 1C #### [facility] [address] [place] [address] Dr. Manda York HbA1c (Bld) [Mass fraction] 5.8 % Normal 4.5-6.2 [facility] Comment on above: Performed By: #### A 1C #### [facility] [address] [place] [address] Dr. Manda York PREG QUANT HCGon 09-24-2022 HCG QUANT <1 Normal [facility] Comment on above: Performed By: #### F T4 #### [facility] [address] [place] [address] Dr. Manda York HCG RANGE SEE BELOW Normal [facility] Comment on above: Result Comment: 5-50 0.2-1 WEEK 50-500 1-2 WEEKS 100-5,000 2-3 WEEKS 500-10,000 3-4 WEEKS 1,000-50,000 4-5 WEEKS 10,000-100,000 5-6 WEEKS 15,000-200,000 6-8 WEEKS 10,000-100,000 2-3 MONTHS Performed By: #### F T4 #### [facility] [address] [place] [address] Dr. Manda York PROTIMEon 09-24-2022 INR Coag (PPP) [Relative time] {INR} Normal [facility] Comment on above: Performed By: #### F T4 #### [facility] [address] [place] [address] Dr. Manda York INR GUIDELINES SEE BELOW Normal [facility] Comment on above: Result Comment: SHERRY RED INR: 2.0 - 3.0 CONDITIONS NOT LISTED BELOW 2.5 - 3.5 FOR PROSTHETIC HEART VALVE REPLACEMENT 2.5 - 3.5 RECURRENT THROMBOSIS Performed By: #### F T4 #### [facility] [address] [place] [address] Dr. Manda York PT Coag (PPP) [Time] 9.6 s Normal 9.0-11.6 [facility] Comment on above: Performed By: #### F T4 #### [facility] [address] [place] [address] Dr. Manda York PTTon 09-24-2022 aPTT Coag (Bld) [Time] 28.2 s Normal 22.3-36.[address] [facility] Comment on above: Performed By: #### F T4 #### [facility] [address] [place] [address] Dr. Manda York TSHon 09-24-2022 TSH 0.300 uIU/mL Critically low 0.358-3.740 [facility] Comment on above: Performed By: #### F T4 #### [facility] [address] [place] [address] Dr. Manda York US PELVIS TRANSVAGon 023 [...] 30 to 65on 09-18-2022 . . Normal [facility] Comment on above: Result Comment: Perf ormed at: WB Performed By: #### F T4 #### [facility] [address] [place] [address] Dr. Manda York Age Gdln ACOG Testing 30-65 Normal [facility] Comment on above: Performed By: #### F T4 #### [facility] [address] [address] [address] Manda York DIAGNOSIS: Comment Normal [facility] Comment on above: Result Comment: NEGA TIVE FOR INTRAEPITHELIAL LESION OR MALIGNANCY. Performed at: WB Performed By: #### F T4 #### [facility] [address] [address] [address] Manda York HPV Aptima Negative Normal Negative [facility] Comment on above: Result Comment: This nucleic acid amplification test detects fourteen high-risk HPV types (16,18,31,33,35,39,45,51,52,56,58,59,66,68) without differentiation. Performed at: =G Performed By: #### F T4 #### [facility] [address] [address] [address] Manda York HPV Genotype Reflex Comment Normal [facility] Comment on above: Result Comment: Crit eria not met, HPV Genotype not performed. Performed at: WB Performed By: #### F T4 #### [facility] [address] [place] [address] Dr. Manda York Methodology: Comment Normal [facility] Comment on above: Result Comment: This liquid based ThinPrep(R) pap test was screened with the use of an image guided system. Performed at: WB Performed By: #### F T4 #### [facility] [address] [address] [address] Manda York Note: Comment Normal [facility] [...] Performed By: #### F T4 #### [facility] [address] [address] [address] Manda York Performed by: Comment Normal [facility] Comment on above: Result Comment: Lorena Peters, Diesel Instructor (ASCP) Performed at: WB Performed By: #### F T4 #### [facility] [address] [address] [address] Manda York Specimen adequacy: Comment Normal [facility] Comment on above: Result Comment: Sati sfactory for evaluation. Endocervical and/or squamous metaplastic cells (endocervical component) are present. Performed at: WB Performed By: #### F T4 #### [facility] [address] [address] [address] Manda York Cytology Cervical or vaginal smear or scraping studyOrdered By: Hazel Torres on 09-10-2022 [facility] MG MAMM SCREEN 3D SELENE CADon 09-01-2022 MG MAMM SCREEN 3D SELENE CAD Patient: ARIADNA HALEY Exam Date: 09/01/2022 : 1980 Gender:F Ordering : DR MANUEL FERRIS . Admission #: [id number] Family : Order #: [id number] CLICK HERE TO VIEW EXAM RADIOLOGY REPORT [...] cancer at age 56. LOCATION: [facility] BREAST COMPOSITION: Scattered areas fibroglandular [...] on 09/02/2022 at 12:32 Normal [facility] MRI KNEE RT WO CONon 11-09-2 [...] by: MANUEL GOMEZ Date: 2022-04-01 08:24 Normal [facility] PNEUMOCOCCAL IGG ABS, 23 SER OTYPESon 03-21-2022 Pneumococcal Interpretation See Note [facility] S. pneumoniae 1 IgG (S) [Mass/Vol] 0.27 ug/mL [facility] S. pneumoniae 12 IgG (S) [Mass/Vol] 0.08 ug/mL [facility] S. pneumoniae 14 IgG (S) [Mass/Vol] 0.19 ug/mL [facility] S. pneumoniae 17 IgG (S) [Mass/Vol] 1.72 ug/mL [facility] S. pneumoniae 19 IgG (S) [Mass/Vol] 1.52 ug/mL [facility] S. pneumoniae 2 IgG (S) [Mass/Vol] 0.44 ug/mL [facility] S. pneumoniae 20 IgG (S) [Mass/Vol] 1.53 ug/mL [facility] S. pneumoniae 22 IgG (S) [Mass/Vol] 0.99 ug/mL [facility] S. pneumoniae 23 IgG (S) [Mass/Vol] 0.14 ug/mL [facility] S. pneumoniae 3 IgG (S) [Mass/Vol] 0.36 ug/mL [facility] S. pneumoniae 34 IgG (S) [Mass/Vol] 5.77 ug/mL [facility] S. pneumoniae 4 IgG (S) [Mass/Vol] 0.06 ug/mL [facility] S. pneumoniae 43 IgG (S) [Mass/Vol] 0.93 ug/mL [facility] S. pneumoniae 5 IgG (S) [Mass/Vol] 0.89 ug/mL [facility] S. pneumoniae 8 IgG (S) [Mass/Vol] 0.58 ug/mL [facility] S. pneumoniae 9 IgG (S) [Mass/Vol] 0.4 ug/mL [facility] S. pneumoniae [place]i type 15B IgG (S) [Mass/Vol] 8.27 ug/mL [facility] S. pneumoniae [place]i type 18C IgG (S) [Mass/Vol] 0.39 ug/mL [facility] S. pneumoniae [place]i type 19A IgG (S) [Mass/Vol] 17.72 ug/mL [facility] S. pneumoniae [place]i type 33F IgG (S) [Mass/Vol] 3.04 ug/mL [facility] S. pneumoniae [place]i type 6B IgG (S) [Mass/Vol] 0.82 ug/mL [facility] S. pneumoniae [place]i type 7F IgG (S) [Mass/Vol] 0.34 ug/mL [facility] S. pneumoniae [place]i type 9V IgG (S) [Mass/Vol] 0.78 ug/mL [facility] XR KNEE RT 4V or >on [...] by: KRISTINA GARRETT Date: 2022-03-21 16:47 Normal [facility] DIPHTHER/TETANUS ABon 2021 C. diphtheriae IgG Qn (S) 0.1 IU/mL [facility] C. tetani toxoid IgG IA Qn 1 IU/mL [facility] IGA BLDon 03-18-2022 IgA [Mass/Vol] 182 mg/dL 70 - 400 mg/dL [facility] IGE BLDon 03-18-2022 IgE Qn 12.3 kU/l <114.0 kU/l [facility] IGGon 03-18-2022 IgG [Mass/Vol] 618 mg/dL Low 700 - 1,600 mg/dL [facility] IGMon 03-18-2022 IgM [Mass/Vol] 514 mg/dL High 40 - 230 mg/dL [facility] Immunodeficiency panel FC (B ld)on 03-18-2022 CD3 cells (Bld) [#/Vol] 2841 cells/uL High 958 - 2,388 cells/uL [facility] CD3 cells/100 cells (Bld) 81 % 60 - 89 % [facility] CD3+CD4+ (T4 helper) cells (Bld) [#/Vol] 1621 cells/uL 533 - 1,674 cells/uL [facility] CD3+CD4+ (T4 helper) cells/100 cells (Bld) 46 % 34 - 61 % [facility] CD3+CD4+ (T4 helper) cells/CD3+CD8+ (T8 suppressor cells) cells (Bld) [# ratio] 1.55 % 1.10 - 3.25 [facility] CD3+CD8+ (T8 suppressor cells) cells (Bld) [#/Vol] 1049 cells/uL High 175 - 958 cells/uL [facility] CD3+CD8+ (T8 suppressor cells) cells/100 cells (Bld) 30 % 10 - 41 % [facility] CD3-CD16+CD56+ (Natural killer) cells (Bld) [#/Vol] 193 cells/uL 102 - 565 cells/uL [facility] CD3-CD16+CD56+ (Natural killer) cells/100 cells (Bld) 5 % 5 - 25 % [facility] CD3-CD19+ cells (Bld) [#/Vol] 475 cells/uL 75 - 660 cells/uL [facility] CD3-CD19+ cells/100 cells (Bld) 13 % 5 - 22 % [facility] CBC W Auto Differential pane l (Bld)on 03-17-2022 Basophils (Bld) [#/Vol] 0.07 10*3/uL <0.11 k/uL [facility] Basophils/100 WBC (Bld) 0.6 % [facility] Differential cell count method Nom (Bld) Auto [facility] Eosinophils (Bld) [#/Vol] 0.18 10*3/uL <0.46 k/uL [facility] Eosinophils/100 WBC (Bld) 1.6 % [facility] Erythrocyte distribution width (RBC) [Ratio] 14.6 % 11.5 - 15.0 % [facility] Hematocrit (Bld) [Volume fraction] 40.5 % 36.0 - 46.0 % [facility] Hemoglobin (Bld) [Mass/Vol] 13.0 g/dL 11.5 - 15.5 g/dL [facility] Immature granulocytes (Bld) [#/Vol] 0.06 10*3/uL <0.10 k/uL [facility] Immature granulocytes/100 WBC (Bld) 0.5 % [facility] Lymphocytes (Bld) [#/Vol] 2.97 10*3/uL 1.00 - 4.00 k/uL [facility] Lymphocytes/100 WBC (Bld) 26.9 % [facility] MCH (RBC) [Entitic mass] 28.4 pg 26.0 - 34.0 pg [facility] MCHC (RBC) [Mass/Vol] 32.1 g/dL 30.5 - 36.0 g/dL [facility] MCV (RBC) [Entitic vol] 88.4 fL 80.0 - 100.0 fL [facility] Monocytes (Bld) [#/Vol] 0.79 10*3/uL <0.87 k/uL [facility] Monocytes/100 WBC (Bld) 7.2 % [facility] Neutrophils (Bld) [#/Vol] 6.97 10*3/uL 1.45 - 7.50 k/uL [facility] Neutrophils/100 WBC (Bld) 63.2 % [facility] Nucleated RBC (Bld) [#/Vol] <0.01 k/uL [facility] Nucleated RBC/100 WBC (Bld) [Ratio] 0.0 /100 WBC [facility] Platelet mean volume (Bld) [Entitic vol] 9.9 fL 9.0 - 12.7 fL [facility] Platelets (Bld) [#/Vol] 314 10*3/uL 150 - 400 k/uL [facility] RBC (Bld) [#/Vol] 4.58 10*6/uL 3.90 - 5.2 0 m/uL [facility] WBC (Bld) [#/Vol] 11.04 10*3/uL High 3.70 - 11 .00 k/uL [facility] ECHOCARDIO M/2D COMPLETEon ECHOCARDIO M/2D COMPLETE Patient: ARIADNA HALEY Exam Date: 03/12/2022 : 1980 Gender:F Ordering : DR MANUEL FERRIS . Admission #: [id number] Family : Order #: [id number] CLICK HERE TO VIEW EXAM ECHOCARDIOGRAM REPORT [...] on 03/16/2022 at 16:47 Normal [facility] INSULINon 03-11-2022 Insulin 17.8 uIU/mL Normal 2.6-24.9 [facility] Comment on above: Performed By: #### C BC #### [facility] [address] [place] [address] Dr. Manda York CBC AUTO DIFFon 03-09-2022 BASO # 0.1 103/ul Normal 0.0-0.1 [facility] Comment on above: Performed By: #### C BC #### [facility] [address] [address] [address] Manda York Basophils/100 WBC (Bld) 0.4 % Normal 0.2-2.0 [facility] Comment on above: Performed By: #### C BC #### [facility] [address] [address] [address] Manda York EO # 0.2 103/ul Normal 0.0-0.7 [facility] Comment on above: Performed By: #### C BC #### [facility] [address] [place] [address] Dr. Manda York Eosinophils/100 WBC (Bld) 1.2 % Normal 0.9-7.0 [facility] Comment on above: Performed By: #### C BC #### [facility] [address] [place] [address] Dr. Manda York Erythrocyte distribution width (RBC) [Ratio] 14.6 % Normal 11.0-15.0 [facility] Comment on above: Performed By: #### C BC #### [facility] [address] [place] [address] Dr. Manda York Hematocrit (Bld) [Volume fraction] 39.2 % Normal 36.0-48.0 [facility] Comment on above: Performed By: #### C BC #### [facility] [address] [place] [address] Dr. Manda York Hemoglobin (Bld) [Mass/Vol] 12.7 g/dL Normal 12.0-16.0 [facility] Comment on above: Performed By: #### C BC #### [facility] [address] [place] [address] Dr. Manda York IG # 0.06 10e3/ul Critically high 0.00-0.03 [facility] Comment on above: Performed By: #### C BC #### [facility] [address] [place] [address] Dr. Manda York IG % 0.5 % Normal 0.0-0.5 [facility] Comment on above: Performed By: #### C BC #### [facility] [address] [place] [address] Dr. Manda York LYMPH # 3.7 103/ul Normal 1.2-3.8 [facility] Comment on above: Performed By: #### C BC #### [facility] [address] [place] [address] Dr. Manda York Lymphocytes/100 WBC (Bld) 31.0 % Normal 20.5-60.0 [facility] Comment on above: Performed By: #### C BC #### [facility] [address] [place] [address] Dr. Manda York MANUAL DIFF REQ NO Normal [facility] Comment on above: Performed By: #### C BC #### [facility] [address] [place] [address] Dr. Manda York MCH (RBC) [Entitic mass] 28.9 pg Normal 26.7-34.0 [facility] Comment on above: Performed By: #### C BC #### [facility] [address] [place] [address] Dr. Manda York MCHC (RBC) [Mass/Vol] 32.4 g/dL Normal 29.9-35.2 [facility] Comment on above: Performed By: #### C BC #### [facility] [address] [place] [address] Dr. Manda York MCV (RBC) [Entitic vol] 89.1 fL Normal 81.0-99.0 [facility] Comment on above: Performed By: #### C BC #### [facility] [address] [place] [address] Dr. Manda York MONO # 0.7 103/ul Normal 0.3-0.8 [facility] Comment on above: Performed By: #### C BC #### [facility] [address] [place] [address] Dr. Manda York Monocytes/100 WBC (Bld) 5.8 % Normal 1.7-12.0 [facility] Comment on above: Performed By: #### C BC #### [facility] [address] [place] [address] Dr. Manda York NEUT # 7.3 103/ul Critically high 1.4-6.5 [facility] Comment on above: Performed By: #### C BC #### [facility] [address] [place] [address] Dr. Manda York Neutrophils/100 WBC (Bld) 61.1 % Normal 43.0-75.0 [facility] Comment on above: Performed By: #### C BC #### [facility] [address] [place] [address] Dr. Manda York Platelet mean volume (Bld) [Entitic vol] 9.7 fL Normal 9.5-13.5 [facility] Comment on above: Performed By: #### C BC #### [facility] [address] [place] [address] Dr. Manda York PLT 297 103/ul Normal 150-450 [facility] Comment on above: Performed By: #### C BC #### [facility] [address] [place] [address] Dr. Manda York RBC 4.40 106/ul Normal 4.20-5.40 [facility] Comment on above: Performed By: #### C BC #### [facility] [address] [place] [address] Dr. Manda York WBC 12.0 103/ul Critically high 4.0-11.0 [facility] Comment on above: Performed By: #### C BC #### [facility] [address] [place] [address] Dr. Manda York FREE THYROXINE INDEX T7on FTI 3.81 Normal 1.30-4.50 [facility] Comment on above: Performed By: #### U AMIC #### [facility] [address] [place] [address] Dr. Manda York T3U 34.0 % Normal 30.0-39.0 [facility] Comment on above: Performed By: #### U AMIC #### [facility] [address] [place] [address] Dr. Manda Yrok T4 [Mass/Vol] 11.20 ug/dL Normal 4.80-13.90 [facility] Comment on above: Performed By: #### U AMIC #### [facility] [address] [address] [address] Manda York GLYCOHEMOGLOBIN A1Con 2021 ADA RECOMMENDATION SEE BELOW Normal [facility] Comment on above: Result Comment: ADA RECOMMENDED LIMIT 4.0 - 6.0 ADA THERAPEUTIC TARGET < 7.0 ACTION SUGGESTED > 7.0 Performed By: #### S LUIIG MELO #### [facility] [address] [address] [address] Manda York Glucose [Mass/Vol] 117 mg/dL Normal [facility] Comment on above: Performed By: #### S LEANN MELOC #### [facility] [address] [place] [address] Dr. Manda York HbA1c (Bld) [Mass fraction] 5.7 % Normal 4.5-6.2 [facility] Comment on above: Performed By: #### S LEANN MELOC #### [facility] [address] [address] [address] Manda York IRONon 03-09-2022 Iron [Mass/Vol] 61.0 ug/dL Normal 50.0-170.0 [facility] Comment on above: Performed By: #### C BC #### [facility] [address] [place] [address] Dr. Manda York LIPID PROFILEon 03-09-2022 CHOL-HDL RATIO NORM SEE BELOW Normal [facility] Comment on above: Result Comment: 3.3 - 4.4 LOW RISK 4.4 - 7.1 AVERAGE RISK 7.1 - 11.0 MODERATE RISK >11.0 HIGH RISK Performed By: #### U AMIC #### [facility] [address] [place] [address] Dr. Manda York Cholesterol [Mass/Vol] 260 mg/dL Critically high <=200 [facility] Comment on above: Performed By: #### U AMIC #### [facility] [address] [address] [address] Manda York Cholesterol in HDL [Mass/Vol] 38 mg/dL Critically low 40-60 [facility] Comment on above: Performed By: #### U AMIC #### [facility] [address] [address] [address] Manda York Cholesterol in LDL [Mass/Vol] 170.8 mg/dL Normal [facility] Comment on above: Performed By: #### U AMIC #### [facility] [address] [address] [address] Manda York Cholesterol.total/Chol esterol in HDL [Mass ratio] 6.8 {ratio} Normal [facility] Comment on above: Performed By: #### U AMIC #### [facility] [address] [address] [address] Manda Yrok HDL NORMAL > or = 60 mg/dl - LO W CARDIOVASCULAR RISK <40 mg/dl - HIGH CARDIOVASCULAR RISK Normal [facility] Comment on above: Performed By: #### U AMIC #### [facility] [address] [address] [address] Manda York LDL CALC NORMAL SEE BELOW Normal [facility] Comment on above: Result Comment: <100 mg/dl OPTIMAL 100 - 129 mg/dl NEAR OR ABOVE OPTIMAL 130 - 159 mg/dl BORDERLINE HIGH 160 - 189 mg/dl HIGH >190 mg/dl VERY HIGH Performed By: #### U AMIC #### [facility] [address] [address] [address] Manda York Triglyceride [Mass/Vol] 256 mg/dL Critically high <=150 [facility] Comment on above: Performed By: #### U AMIC #### [facility] [address] [address] [address] Manda York VLDL CALC 51.2 mg/dL Normal [facility] Comment on above: Performed By: #### U AMIC #### [facility] [address] [place] [address] Dr. Manda York PROF 14(COMP METB)on 022 Albumin [Mass/Vol] 3.8 g/dL Normal 3.4-5.0 [facility] Comment on above: Performed By: #### U AMIC #### [facility] [address] [address] [address] Manda York Albumin/Globulin [Mass ratio] 1.0 {ratio} Normal [facility] Comment on above: Performed By: #### U AMIC #### [facility] [address] [address] [address] Manda York ALP [Catalytic activity/Vol] 66 U/L Normal 46-116 [facility] Comment on above: Performed By: #### U AMIC #### [facility] [address] [address] [address] Manda York ALT [Catalytic activity/Vol] 27 U/L Normal 14-59 [facility] Comment on above: Performed By: #### U AMIC #### [facility] [address] [address] [address] Manda York Anion gap [Moles/Vol] 11.8 mmol/L Normal [facility] Comment on above: Performed By: #### U AMIC #### [facility] [address] [address] [address] Manda York AST [Catalytic activity/Vol] 9 U/L Critically low 15-37 [facility] Comment on above: Performed By: #### U AMIC #### [facility] [address] [address] [address] Manda York Bilirubin [Mass/Vol] 0.2 mg/dL Normal 0.2-1.0 [facility] Comment on above: Performed By: #### U AMIC #### [facility] [address] [address] [address] Manda York Calcium [Mass/Vol] 9.1 mg/dL Normal 8.5-10.1 [facility] Comment on above: Performed By: #### U AMIC #### [facility] [address] [address] [address] Manda York Chloride [Moles/Vol] 101 mmol/L Normal 98-107 [facility] Comment on above: Performed By: #### U AMIC #### [facility] [address] [address] [address] Manda York CO2 [Moles/Vol] 26.1 mmol/L Normal 21.0-32.0 [facility] Comment on above: Performed By: #### U AMIC #### [facility] [address] [address] [address] Manda York Creatinine [Mass/Vol] 0.80 mg/dL Normal 0.55-1.02 [facility] Comment on above: Performed By: #### U AMIC #### [facility] [address] [address] [address] Manda York EGFR-AF CROATIAN >60 Normal >=60 [facility] Comment on above: Performed By: #### U AMIC #### [facility] [address] [address] [address] Manda York EGFR-NON AF CROATIAN >60 Normal >=60 [facility] Comment on above: Performed By: #### U AMIC #### [facility] [address] [address] [address] Manda York Globulin (S) [Mass/Vol] 3.8 g/dL Normal [facility] Comment on above: Performed By: #### U AMIC #### [facility] [address] [address] [address] Manda Yokr Glucose [Mass/Vol] 93 mg/dL Normal 74-106 [facility] Comment on above: Performed By: #### U AMIC #### [facility] [address] [address] [address] Manda York Potassium [Moles/Vol] 3.9 mmol/L Normal 3.5-5.1 [facility] Comment on above: Performed By: #### U AMIC #### [facility] [address] [address] [address] Manda York Protein [Mass/Vol] 7.6 g/dL Normal 6.4-8.2 [facility] Comment on above: Performed By: #### U AMIC #### [facility] [address] [address] [address] Manda York Sodium [Moles/Vol] 135 mmol/L Critically low 136-145 [facility] Comment on above: Performed By: #### U AMIC #### [facility] [address] [address] [address] Manda York Urea nitrogen [Mass/Vol] 10.0 mg/dL Normal 7.0-18.0 [facility] Comment on above: Performed By: #### U AMIC #### [facility] [address] [address] [address] Manda York Urea nitrogen/Creatinine [Mass ratio] 12.5 mg/mg Normal [facility] Comment on above: Performed By: #### U AMIC #### [facility] [address] [address] [address] Manda York TSHon 03-09-2022 TSH 0.610 uIU/mL Normal 0.358-3.740 [facility] Comment on above: Performed By: #### U AMIC #### [facility] [address] [place] [address] Dr. Manda oYrk B2 MICROGLOBULIN Bon 022 Exty-2-Bucdphbolvmzk [Mass/Vol] 1.8 ug/mL 0.8 - 2.4 mg/L [facility] FERRITIN BLDon 03-05-2022 Ferritin [Mass/Vol] 33.2 ng/mL 14.7 - 2 05.1 ng/mL [facility] FOLATE SERUMon 03-05-2022 Folate [Mass/Vol] 6.6 ng/mL >4.7 ng/mL [facility] Iron and Iron binding capaci ty panelon 03-05-2022 Iron [Mass/Vol] 49 ug/dL 41 - 186 ug/dL [facility] Iron binding capacity [Mass/Vol] 392 ug/dL High 232 - 386 ug/dL [facility] Iron/TIBC [Molar ratio] 12.5 % Low 15.0 - 57.0 % [facility] CBC W Auto Differential pane l (Bld)on 03-04-2022 Basophils (Bld) [#/Vol] 0.07 10*3/uL <0.11 k/uL [facility] Basophils/100 WBC (Bld) 0.6 % [facility] Differential cell count method Nom (Bld) Auto [facility] Eosinophils (Bld) [#/Vol] 0.19 10*3/uL <0.46 k/uL [facility] Eosinophils/100 WBC (Bld) 1.7 % [facility] Erythrocyte distribution width (RBC) [Ratio] 14.7 % 11.5 - 15.0 % [facility] Hematocrit (Bld) [Volume fraction] 40.0 % 36.0 - 46.0 % [facility] Hemoglobin (Bld) [Mass/Vol] 13.0 g/dL 11.5 - 15.5 g/dL [facility] Immature granulocytes (Bld) [#/Vol] 0.07 10*3/uL <0.10 k/uL [facility] Immature granulocytes/100 WBC (Bld) 0.6 % [facility] Lymphocytes (Bld) [#/Vol] 3.31 10*3/uL 1.00 - 4.00 k/uL [facility] Lymphocytes/100 WBC (Bld) 30.2 % [facility] MCH (RBC) [Entitic mass] 28.9 pg 26.0 - 34.0 pg [facility] MCHC (RBC) [Mass/Vol] 32.5 g/dL 30.5 - 36.0 g/dL [facility] MCV (RBC) [Entitic vol] 88.9 fL 80.0 - 100.0 fL [facility] Monocytes (Bld) [#/Vol] 0.70 10*3/uL <0.87 k/uL [facility] Monocytes/100 WBC (Bld) 6.4 % [facility] Neutrophils (Bld) [#/Vol] 6.63 10*3/uL 1.45 - 7.50 k/uL [facility] Neutrophils/100 WBC (Bld) 60.5 % [facility] Nucleated RBC (Bld) [#/Vol] <0.01 k/uL [facility] Nucleated RBC/100 WBC (Bld) [Ratio] 0.0 /100 WBC [facility] Platelet mean volume (Bld) [Entitic vol] 9.6 fL 9.0 - 12.7 fL [facility] Platelets (Bld) [#/Vol] 355 10*3/uL 150 - 400 k/uL [facility] RBC (Bld) [#/Vol] 4.50 10*6/uL 3.90 - 5.2 0 m/uL [facility] WBC (Bld) [#/Vol] 10.97 10*3/uL 3.70 - 11 .00 k/uL [facility] Calcium.ionized [Moles/Vol]o n 03-04-2022 Calcium.ionized (Bld) [Mass/Vol] 1.26 mmol/L 1.08 - 1.30 mmol/L [facility] Calcium.ionized adjusted to pH 7.4 (Bld) [Moles/Vol] 1.25 mmol/L 1.08 - 1.30 mmol/L [facility] Comprehensive metabolic 2000 panelon 03-04-2022 Albumin [Mass/Vol] 4.3 g/dL 3.9 - 4.9 g/dL [facility] ALP [Catalytic activity/Vol] 70 U/L 34 - 123 U/L [facility] ALT [Catalytic activity/Vol] 26 U/L 7 - 38 U/L [facility] Anion gap [Moles/Vol] 7 mmol/L Low 9 - 18 mmol/L [facility] AST [Catalytic activity/Vol] 12 U/L Low 13 - 35 U/L [facility] Bilirubin [Mass/Vol] 0.2 mg/dL 0.2 - 1 .3 mg/dL [facility] Calcium [Mass/Vol] 9.3 mg/dL 8.5 - 10. 2 mg/dL [facility] Chloride [Moles/Vol] 103 mmol/L 97 - 10 5 mmol/L [facility] CO2 [Moles/Vol] 28 mmol/L 22 - 30 mmol/L [facility] Creatinine [Mass/Vol] 0.69 mg/dL 0.58 - 0.96 mg/dL [facility] Estimated Glomerular Filtration Rate 112 mL/min/1.73m >=60 mL/min/1.73m [facility] Glucose [Mass/Vol] 100 mg/dL High 74 - 99 mg/dL [facility] Potassium [Moles/Vol] 3.9 mmol/L 3.7 - 5.1 mmol/L [facility] Protein [Mass/Vol] 7.0 g/dL 6.3 - 8.0 g/dL [facility] Sodium [Moles/Vol] 138 mmol/L 136 - 144 mmol/L [facility] Urea nitrogen [Mass/Vol] 12 mg/dL 7 - 21 mg/dL [facility] LD LACTATE DEHYDROon 022 LDH [Catalytic activity/Vol] 135 U/L 135 - 214 U/L [facility] PHOSPHORUS INORGANICon 03-04 Phosphate [Mass/Vol] 3.2 mg/dL 2.7 - 4 .8 mg/dL [facility] URIC ACID BLOODon 03-04-2022 Urate [Mass/Vol] 5.2 mg/dL 2.5 - 6.6 mg/dL [facility] IMMUNOGLOBULINS IGA/IGM/IGG/ IGE QUANTITAon 02-20-2022 Immunoglobulin A, Qn, Serum 189 mg/dL Normal 87-352 [facility] Comment on above: Result Comment: Perf ormed at: CB Performed By: #### S LORIE THYLC #### [facility] [address] [address] [address] Manda York Immunoglobulin E, Total 10 IU/mL Normal 6-495 [facility] Comment on above: Result Comment: Perf ormed at: BN Performed By: #### Lucinda MELO, THYLC #### [facility] [address] [address] [address] Manda York Immunoglobulin G, Qn, Serum 598 mg/dL Normal 586-1602 [facility] Comment on above: Result Comment: Perf ormed at: CB Performed By: #### Lucinda MELO, THYLC #### [facility] [address], [place] [address] Dr. Manda York Immunoglobulin M, Qn, Serum 493 mg/dL Critically high 26-217 [facility] Comment on above: Result Comment: Perf ormed at: CB Performed By: #### S LORIE, THYLC #### [facility] [address] [address] [address] Manda York CHRISTIAN by IFAon 02-19-2022 Antinuclear Antibodies, IFA Negative Normal [facility] Comment on above: Result Comment: Nega tive <1:80 Borderline 1:80 Positive >1:80 ICAP nomenclature: AC-0 For more information about Hep-2 cell patterns use ANApatterns.org, the official website for the International Consensus on Antinuclear Antibody (CHRISTIAN) Patterns (ICAP). Performed By: #### S LORIE [facility] #### [facility] [address] [place] [address] Dr. Manda York THYROID ANTIBODIESon 022 Thyroglobulin Antibody <1.0 Normal 0.0-0.9 [facility] Comment on above: Result Comment: Thyr oglobulin Antibody measured by [employer] Methodology Performed By: #### F T4 #### [facility] [address] [place] [address] Dr. Manda York Thyroid Peroxidase (TPO) Ab <8 Normal 0-34 [facility] Comment on above: Performed By: #### F T4 #### [facility] [address] [place] [address] Dr. Manda York PROTEIN ELECTROPHERESISon Albumin [Mass/Vol] 3.2 g/dL Normal 2.9-4.4 [facility] Comment on above: Performed By: #### F T4 #### [facility] [address] [place] [address] Dr. Manda York Albumin/Globulin [Mass ratio] 1.0 {ratio} Normal 0.7-1.7 [facility] Comment on above: Performed By: #### F T4 #### [facility] [address] [place] [address] Dr. Manda York Yoedy-7-Bjtzmxrd 0.2 g/dL Normal 0.0-0.4 [facility] Comment on above: Performed By: #### F T4 #### [facility] [address] [place] [address] Dr. Manda York Hbjyx-6-Pdnorcmr 0.9 g/dL Normal 0.4-1.0 [facility] Comment on above: Performed By: #### F T4 #### [facility] [address] [place] [address] Dr. Manda York Beta Globulin 1.2 g/dL Normal 0.7-1.3 [facility] Comment on above: Performed By: #### F T4 #### [facility] [address] [place], [place] [id number] Dr. Manda York Gamma Globulin 0.9 g/dL Normal 0.4-1.8 [facility] Comment on above: Performed By: #### F T4 #### [facility] [address] [place] [address] Dr. Manda York Globulin (S) [Mass/Vol] 3.2 g/dL Normal 2.2-3.9 [facility] Comment on above: Performed By: #### F T4 #### [facility] [address] [place] [address] Dr. Manda York M-Jose De Jesus Not Observed Normal Not Observed [facility] Comment on above: Performed By: #### F T4 #### [facility] [address] [place] [address] Dr. Manda York PDF . Normal [facility] Comment on above: Performed By: #### F T4 #### [facility] [address] [place] [address] Dr. Manda York Please note: Comment Normal [facility] Comment on above: Result Comment: Prot ein electrophoresis scan will follow via computer, mail, or caretaker resort delivery. Performed By: #### F T4 #### [facility] [address] [place] [address] Dr. Manda York Protein [Mass/Vol] 6.4 g/dL Normal 6.0-8.5 [facility] Comment on above: Performed By: #### F T4 #### [facility] [address] [place] [address] Dr. Manda York SLE PROFILE Aon 02-16-2022 Anti-DNA (DS) Ab Qn 9 IU/mL Normal 0-9 [facility] Comment on above: Result Comment: Nega tive <5 Equivocal 5 - 9 Positive >9 Performed By: #### S LUIGI MELO #### [facility] [address] [place] [address] Dr. Manda York Antichromatin Antibodies <0.2 Normal 0.0-0.9 [facility] Comment on above: Performed By: #### S LUIGI MELO #### [facility] [address] [place] [address] Dr. Manda York RA Latex Turbid. <10.0 Normal <14.0 [facility] Comment on above: Performed By: #### S LORIE [facility] #### [facility] [address] [place] [address] Dr. Manda York DIGITAL ACCOUNT SUPERVISOR Antibodies <0.2 Normal 0.0-0.9 [facility] Comment on above: Performed By: #### Lucinda MELO [facility] #### [facility] [address] [place] [address] Dr. Manda York Sjogren's Anti-SS-A <0.2 Normal 0.0-0.9 [facility] Comment on above: Performed By: #### S LORIE [facility] #### [facility] [address] [place] [address] Dr. Manda Solorzanoogryaniv'lucinda Anti-SS-B <0.2 Normal 0.0-0.9 [facility] Comment on above: Performed By: #### Lucinda MELO [facility] #### [facility] [address] [place] [address] Dr. Manda York Schneider Antibodies <0.2 Normal 0.0-0.9 [facility] Comment on above: Performed By: #### Lucinda MELO [facility] #### [facility] [address] [place] [address] Dr. Manda York ANTISTREPTOLYSIN O AB (ASO)o n 02-15-2022 Antistreptolysin O Ab 49.6 IU/mL Normal 0.0-200.0 [facility] Comment on above: Performed By: #### A SOAB #### [facility] [address] [place] [address] Dr. Manda York MICROALBUMIN URINEon 022 Albumin, Urine <3.0 Normal Not Estab. [facility] Comment on above: Result Comment: Ve rified by repeat analysis Performed By: #### C BC #### [facility] [address] [place] [address] Dr. Manda York T4, T3U, FTI LABCORPon 02-15 Free Thyroxine Index 2.6 Normal 1.2-4.9 [facility] Comment on above: Performed By: #### LUIGI PATRICK #### [facility] [address] [place] [address] Dr. Manda York T3 Uptake 26 % Normal 24-39 [facility] Comment on above: Performed By: #### LUIGI PATRICK #### [facility] [address] [place] [address] Dr. Manda York T4 [Mass/Vol] 9.9 ug/dL Normal 4.5-12.0 [facility] Comment on above: Performed By: #### LUIGI PATRICK #### [facility] [address] [place] [address] Dr. Manda York CBC AUTO DIFFon 02-14-2022 BASO # 0.1 103/ul Normal 0.0-0.1 [facility] Comment on above: Performed By: #### U AMIC #### [facility] [address] [place] [address] Dr. Manda York Basophils/100 WBC (Bld) 0.6 % Normal 0.2-2.0 [facility] Comment on above: Performed By: #### U AMIC #### [facility] [address] [place] [address] Dr. Manda York EO # 0.3 103/ul Normal 0.0-0.7 [facility] Comment on above: Performed By: #### U AMIC #### [facility] [address] [place] [address] Dr. Manda York Eosinophils/100 WBC (Bld) 3.4 % Normal 0.9-7.0 [facility] Comment on above: Performed By: #### U AMIC #### [facility] [address] [place] [address] Dr. Manda York Erythrocyte distribution width (RBC) [Ratio] 14.6 % Normal 11.0-15.0 [facility] Comment on above: Performed By: #### U AMIC #### [facility] [address] [address] [address] Manda York Hematocrit (Bld) [Volume fraction] 39.1 % Normal 36.0-48.0 [facility] Comment on above: Performed By: #### U AMIC #### [facility] [address] [place] [address] Dr. Manda York Hemoglobin (Bld) [Mass/Vol] 12.4 g/dL Normal 12.0-16.0 [facility] Comment on above: Performed By: #### U AMIC #### [facility] [address] [place] [address] Dr. Manda York IG # 0.03 10e3/ul Normal 0.00-0.03 [facility] Comment on above: Performed By: #### U AMIC #### [facility] [address] [place] [address] Dr. Manda York IG % 0.3 % Normal 0.0-0.5 [facility] Comment on above: Performed By: #### U AMIC #### [facility] [address] [place] [address] Dr. Manda York LYMPH # 3.6 103/ul Normal 1.2-3.8 [facility] Comment on above: Performed By: #### U AMIC #### [facility] [address] [place] [address] Dr. Manda York Lymphocytes/100 WBC (Bld) 39.9 % Normal 20.5-60.0 [facility] Comment on above: Performed By: #### U AMIC #### [facility] [address] [place] [address] Dr. Manda York MANUAL DIFF REQ NO Normal [facility] Comment on above: Performed By: #### U AMIC #### [facility] [address] [place] [address] Dr. Manda York MCH (RBC) [Entitic mass] 28.4 pg Normal 26.7-34.0 [facility] Comment on above: Performed By: #### U AMIC #### [facility] [address] [address] [address] Manda York MCHC (RBC) [Mass/Vol] 31.7 g/dL Normal 29.9-35.2 [facility] Comment on above: Performed By: #### U AMIC #### [facility] [address] [address] [address] Manda York MCV (RBC) [Entitic vol] 89.7 fL Normal 81.0-99.0 [facility] Comment on above: Performed By: #### U AMIC #### [facility] [address] [address] [address] Manda York MONO # 0.7 103/ul Normal 0.3-0.8 [facility] Comment on above: Performed By: #### U AMIC #### [facility] [address] [place] [address] Dr. Manda York Monocytes/100 WBC (Bld) 7.3 % Normal 1.7-12.0 [facility] Comment on above: Performed By: #### U AMIC #### [facility] [address] [address] [address] Manda York NEUT # 4.4 103/ul Normal 1.4-6.5 [facility] Comment on above: Performed By: #### U AMIC #### [facility] [address] [place] [address] Dr. Manda York Neutrophils/100 WBC (Bld) 48.5 % Normal 43.0-75.0 [facility] Comment on above: Performed By: #### U AMIC #### [facility] [address] [address] [address] Manda York Platelet mean volume (Bld) [Entitic vol] 10.1 fL Normal 9.5-13.5 [facility] Comment on above: Performed By: #### U AMIC #### [facility] [address] [address] [address] Manda York PLT 310 103/ul Normal 150-450 [facility] Comment on above: Performed By: #### U AMIC #### [facility] [address] [address] [address] Manda York RBC 4.36 106/ul Normal 4.20-5.40 [facility] Comment on above: Performed By: #### U AMIC #### [facility] [address] [place] [address] Dr. Manda York WBC 9.0 103/ul Normal 4.0-11.0 [facility] Comment on above: Performed By: #### U AMIC #### [facility] [address] [place] [address] Dr. Manda York CRPon 02-14-2022 CRP [Mass/Vol] mg/L Normal <=1.0 [facility] Comment on above: Performed By: #### U AMIC #### [facility] [address] [place] [address] Dr. Manda York CULTURE URINEon 02-14-2022 CULTURE URINE Culture Observations : LIGHT GROWTH OF MIXED GENITAL AMBER. NO POTENTIAL PATHOGENS SEEN. Normal [facility] Comment on above: Performed By: #### C BC #### [facility] [address] [place] [address] Dr. Manda York PROF 14(COMP METB)on 022 Albumin [Mass/Vol] 3.5 g/dL Normal 3.4-5.0 [facility] Comment on above: Performed By: #### U AMIC #### [facility] [address] [place] [address] Dr. Manda York Albumin/Globulin [Mass ratio] 1.0 {ratio} Normal [facility] Comment on above: Performed By: #### U AMIC #### [facility] [address] [place] [address] Dr. Manda York ALP [Catalytic activity/Vol] 71 U/L Normal 46-116 [facility] Comment on above: Performed By: #### U AMIC #### [facility] [address] [place] [address] Dr. Manda York ALT [Catalytic activity/Vol] 46 U/L Normal 14-59 [facility] Comment on above: Performed By: #### U AMIC #### [facility] [address] [address] [address] Manda York Anion gap [Moles/Vol] 11.6 mmol/L Normal [facility] Comment on above: Performed By: #### U AMIC #### [facility] [address] [address] [address] Manda York AST [Catalytic activity/Vol] 15 U/L Normal 15-37 [facility] Comment on above: Performed By: #### U AMIC #### [facility] [address] [address] [address] Manda York Bilirubin [Mass/Vol] 0.2 mg/dL Normal 0.2-1.0 [facility] Comment on above: Performed By: #### U AMIC #### [facility] [address] [place] [address] Dr. Manda York Calcium [Mass/Vol] 8.7 mg/dL Normal 8.5-10.1 [facility] Comment on above: Performed By: #### U AMIC #### [facility] [address] [address] [address] Manda York Chloride [Moles/Vol] 104 mmol/L Normal 98-107 [facility] Comment on above: Performed By: #### U AMIC #### [facility] [address] [address] [address] Manda York CO2 [Moles/Vol] 25.1 mmol/L Normal 21.0-32.0 [facility] Comment on above: Performed By: #### U AMIC #### [facility] [address] [address] [address] Manda York Creatinine [Mass/Vol] 0.80 mg/dL Normal 0.55-1.02 [facility] Comment on above: Performed By: #### U AMIC #### [facility] [address] [address] [address] Manda York EGFR-AF CROATIAN >60 Normal >=60 [facility] Comment on above: Performed By: #### U AMIC #### [facility] [address] [address] [address] Manda York EGFR-NON AF CROATIAN >60 Normal >=60 [facility] Comment on above: Performed By: #### U AMIC #### [facility] [address] [address] [address] Manda York Globulin (S) [Mass/Vol] 3.6 g/dL Normal [facility] Comment on above: Performed By: #### U AMIC #### [facility] [address] [address] [address] Manda York Glucose [Mass/Vol] 92 mg/dL Normal 74-106 [facility] Comment on above: Performed By: #### U AMIC #### [facility] [address] [address] [address] Manda York Potassium [Moles/Vol] 3.7 mmol/L Normal 3.5-5.1 [facility] Comment on above: Performed By: #### U AMIC #### [facility] [address] [address] [address] Manda York Protein [Mass/Vol] 7.1 g/dL Normal 6.4-8.2 [facility] Comment on above: Performed By: #### U AMIC #### [facility] [address] [address] [address] Manda York Sodium [Moles/Vol] 137 mmol/L Normal 136-145 [facility] Comment on above: Performed By: #### U AMIC #### [facility] [address] [address] [address] Manda York Urea nitrogen [Mass/Vol] 17.0 mg/dL Normal 7.0-18.0 [facility] Comment on above: Performed By: #### U AMIC #### [facility] [address] [place] [address] Dr. Manda York Urea nitrogen/Creatinine [Mass ratio] 21.2 mg/mg Normal [facility] Comment on above: Performed By: #### U AMIC #### [facility] [address] [place] [address] Dr. Manda York SED RATE WESTERGRENon 2021 SED RATE 40 mm/hr Critically high <=20 [facility] Comment on above: Performed By: #### S EDR #### [facility] [address] [place] [address] Dr. Manda York TSHon 02-14-2022 TSH 1.155 uIU/mL Normal 0.358-3.740 [facility] Comment on above: Performed By: #### U AMIC #### [facility] [address] [place] [address] Dr. Manda York UA RANDOM W/MICROSCOPICon BACTERIA NONE SEEN Normal NONE SEEN [facility] Comment on above: Performed By: #### U AMIC #### [facility] [address] [place] [address] Dr. Manda York Bilirubin Ql (U) Negative Normal NEGATIVE [facility] Comment on above: Performed By: #### U AMIC #### [facility] [address] [place] [address] Dr. Manda York CAST NONE SEEN Normal NONE SEEN [facility] Comment on above: Performed By: #### U AMIC #### [facility] [address] [place] [address] Dr. Manda York Clarity (U) CLEAR Normal CLEAR [facility] Comment on above: Performed By: #### U AMIC #### [facility] [address] [place] [address] Dr. Manda York Color (U) LT. YELLOW Normal YELLOW [facility] Comment on above: Performed By: #### U AMIC #### [facility] [address] [place] [address] Dr. Manda York Crystals LM Nom (Urine sed) NONE SEEN Normal NONE SEEN [facility] Comment on above: Performed By: #### U AMIC #### [facility] [address] [place] [address] Dr. Manda York Epithelial cells LM Ql (Urine sed) RARE Normal NONE SEEN /RARE [facility] Comment on above: Performed By: #### U AMIC #### [facility] [address] [address] [address] Manda York Glucose Ql (U) Negative Normal NEGATIVE [facility] Comment on above: Performed By: #### U AMIC #### [facility] [address] [address] [address] Manda York Hemoglobin Ql (U) Negative Normal NEGATIVE [facility] Comment on above: Performed By: #### U AMIC #### [facility] [address] [address] [address] Manda York Ketones Ql (U) Negative Normal NEGATIVE [facility] Comment on above: Performed By: #### U AMIC #### [facility] [address] [address] [address] Manda York LEUKOCYTES Negative Normal NEGATIVE [facility] Comment on above: Performed By: #### U AMIC #### [facility] [address] [address] [address] Manda York MUCOUS NONE SEEN Normal NONE SEEN [facility] Comment on above: Performed By: #### U AMIC #### [facility] [address] [address] [address] Manda York Nitrite Ql (U) Negative Normal NEGATIVE [facility] Comment on above: Performed By: #### U AMIC #### [facility] [address] [place] [address] Dr. Manda York pH (U) 6.0 [pH] Normal 5-9 [facility] Comment on above: Performed By: #### U AMIC #### [facility] [address] [address] [address] Manda York RBC NONE SEEN Abnormal 0-2 [facility] Comment on above: Performed By: #### U AMIC #### [facility] [address] [place] [address] Dr. Manda York SPEC GRAVITY 1.005 Normal 1.005-<=1.025 [facility] Comment on above: Performed By: #### U AMIC #### [facility] [address] [address] [address] Manda York UA PROTEIN Negative Normal NEGATIVE/ TRACE [facility] Comment on above: Performed By: #### U AMIC #### [facility] [address] [place] [address] Dr. Manda York Urobilinogen Qn (U) 0.2 {Carmella'U}/dL Normal 0.2 - 1. 0 [facility] Comment on above: Performed By: #### U AMIC #### [facility] [address] [place] [address] Dr. Manda York WBC NONE SEEN Normal NONE SEEN [facility] Comment on above: Performed By: #### U AMIC #### [facility] [address] [place] [address] Dr. Manda York URIC ACID SERUMon 02-14-2022 Urate [Mass/Vol] 4.2 mg/dL Normal 2.6-6.0 [facility] Comment on above: Performed By: #### U AMIC #### [facility] [address] [place] [address] Dr. Manda York VITAMIN D 25 OHon 02-14-2022 VIT D 25-OH 22.4 ng/mL Normal [facility] Comment on above: Performed By: #### F T4 #### [facility] [address] [place] [address] Dr. Manda York VIT D RANGES SEE BELOW Normal [facility] Comment on above: Result Comment: <20 ng/mL Vit D deficient 20 - <30 ng/mL Vit D insufficient 30 - 100 ng/mL Vit D sufficient >100 ng/mL Potential Toxicity Performed By: #### F T4 #### [facility] [address] [place] [address] Dr. Manda York METANEPHRINES FRAC. QNT 24 H R URINEon 11-28-2021 Metanephrine, U,24hr Comment Normal 36-209 [facility] Comment on above: Result Comment: No t otal volume submitted. Unable to calculate 24 hour result. Performed By: #### S LUIGI MELO #### [facility] [address] [place] [address] Dr. Manda York Metanephrine, Ur 57 ug/L Normal Undefined [facility] Comment on above: Performed By: #### LEANN PATRICKC #### [facility] [address] [address] [address] Manda York Normetanephr.,U,24h Comment Normal 131-612 [facility] Comment on above: Result Comment: No t otal volume submitted. Unable to calculate 24 hour result. Performed By: #### LEANN PATRICKC #### [facility] [address] [address] [address] Manda York Normetanephrine, Ur 116 ug/L Normal Undefined [facility] Comment on above: Performed By: #### LEANN PATRICKC #### [facility] [address] [place] [address] Dr. Manda York METANEPHRINES PLASMA FREEon 11-27-2021 Metanephrine, Pl 22.1 pg/mL Normal 0.0-88.0 [facility] Comment on above: Performed By: #### LUIGI PATRICK #### [facility] [address] [place] [address] Dr. Manda York Normetanephrine, Pl 50.7 pg/mL Normal 0.0-218.9 [facility] Comment on above: Performed By: #### LEANN PATRICKC #### [facility] [address] [place] [address] Dr. Manda York CMV PLASMA PCRon 11-19-2021 CMV Quant DNA PCR (Plasma) Negative Normal Negative [facility] Comment on above: Result Comment: No C MV DNA detected. The quantitative range of this assay is 200 to 1 million IU/mL. Performed By: #### LEANN PATRICKC #### [facility] [address] [place] [address] Dr. Manda York log10 CMV Qn DNA Pl UPTCAL Normal [facility] Comment on above: Result Comment: Unab le to calculate result since non-numeric result obtained for component test. Performed By: #### LEANN PATRICKC #### [facility] [address] [place] [address] Dr. Manda York CMV AB IGMon 11-18-2021 Cytomegalovirus (CMV) Ab, IgM 43.2 AU/mL Critically high 0.0-29.9 [facility] Comment on above: Result Comment: Nega tive <30.0 Equivocal 30.0 - 34.9 Positive >34.9 A positive result is generally indicative of acute infection, reactivation or persistent IgM production. Performed By: #### S LUIGI MELO #### [facility] [address] [place] [address] Dr. Manda York CMV AB, IGGon 11-18-2021 Cytomegalovirus (CMV) Ab, IgG >10.00 Critically high 0.00-0.59 [facility] Comment on above: Result Comment: Nega tive <0.60 Equivocal 0.60 - 0.69 Positive >0.69 Performed By: #### C MVIGG #### [facility] [facility] [address] [place] [address] Dr. Manda York CBC AUTO DIFFon 11-17-2021 BASO # 0.1 103/ul Normal 0.0-0.1 [facility] Comment on above: Performed By: #### C BC #### [facility] [address] [place] [address] Dr. Manda York Basophils/100 WBC (Bld) 0.6 % Normal 0.2-2.0 [facility] Comment on above: Performed By: #### C BC #### [facility] [address] [place] [address] Dr. Manda York EO # 0.2 103/ul Normal 0.0-0.7 [facility] Comment on above: Performed By: #### C BC #### [facility] [address] [place] [address] Dr. Manda York Eosinophils/100 WBC (Bld) 2.3 % Normal 0.9-7.0 [facility] Comment on above: Performed By: #### C BC #### [facility] [address] [place] [address] Dr. Manda York Erythrocyte distribution width (RBC) [Ratio] 14.2 % Normal 11.0-15.0 [facility] Comment on above: Performed By: #### C BC #### [facility] [address] [place] [address] Dr. Manda York Hematocrit (Bld) [Volume fraction] 40.2 % Normal 36.0-48.0 [facility] Comment on above: Performed By: #### C BC #### [facility] [address] [place] [address] Dr. Manda York Hemoglobin (Bld) [Mass/Vol] 12.8 g/dL Normal 12.0-16.0 [facility] Comment on above: Performed By: #### C BC #### [facility] [address] [place] [address] Dr. Manda York IG # 0.02 10e3/ul Normal 0.00-0.03 [facility] Comment on above: Performed By: #### C BC #### [facility] [address] [place] [address] Dr. Manda York IG % 0.2 % Normal 0.0-0.5 [facility] Comment on above: Performed By: #### C BC #### [facility] [address] [place] [address] Dr. Manda York LYMPH # 2.5 103/ul Normal 1.2-3.8 [facility] Comment on above: Performed By: #### C BC #### [facility] [address] [place] [address] Dr. Manda York Lymphocytes/100 WBC (Bld) 24.9 % Normal 20.5-60.0 [facility] Comment on above: Performed By: #### C BC #### [facility] [address] [place] [address] Dr. Manda York MANUAL DIFF REQ NO Normal [facility] Comment on above: Performed By: #### C BC #### [facility] [address] [place] [address] Dr. Manda York MCH (RBC) [Entitic mass] 27.9 pg Normal 26.7-34.0 [facility] Comment on above: Performed By: #### C BC #### [facility] [address] [place] [address] Dr. Manda York MCHC (RBC) [Mass/Vol] 31.8 g/dL Normal 29.9-35.2 [facility] Comment on above: Performed By: #### C BC #### [facility] [address] [place] [address] Dr. Manda York MCV (RBC) [Entitic vol] 87.6 fL Normal 81.0-99.0 [facility] Comment on above: Performed By: #### C BC #### [facility] [address] [place] [address] Dr. Manda York MONO # 0.6 103/ul Normal 0.3-0.8 [facility] Comment on above: Performed By: #### C BC #### [facility] [address] [place] [address] Dr. Manda York Monocytes/100 WBC (Bld) 6.3 % Normal 1.7-12.0 [facility] Comment on above: Performed By: #### C BC #### [facility] [address] [place] [address] Dr. Manda York NEUT # 6.5 103/ul Normal 1.4-6.5 [facility] Comment on above: Performed By: #### C BC #### [facility] [address] [place] [address] Dr. Manda York Neutrophils/100 WBC (Bld) 65.7 % Normal 43.0-75.0 [facility] Comment on above: Performed By: #### C BC #### [facility] [address] [place] [address] Dr. Manda York Platelet mean volume (Bld) [Entitic vol] 10.1 fL Normal 9.5-13.5 [facility] Comment on above: Performed By: #### C BC #### [facility] [address] [place] [address] Dr. Manda York PLT 304 103/ul Normal 150-450 [facility] Comment on above: Performed By: #### C BC #### [facility] [address] [place] [address] Dr. Manda York RBC 4.59 106/ul Normal 4.20-5.40 [facility] Comment on above: Performed By: #### C BC #### [facility] [address] [place] [address] Dr. Manda York WBC 9.9 103/ul Normal 4.0-11.0 [facility] Comment on above: Performed By: #### C BC #### [facility] [address] [place] [address] Dr. Manda York PROF 14(COMP METB)on 022 Albumin [Mass/Vol] 3.7 g/dL Normal 3.4-5.0 [facility] Comment on above: Performed By: #### C BC #### [facility] [address] [place] [address] Dr. Manda York Albumin/Globulin [Mass ratio] 1.0 {ratio} Normal [facility] Comment on above: Performed By: #### C BC #### [facility] [address] [place] [address] Dr. Manda York ALP [Catalytic activity/Vol] 65 U/L Normal 46-116 [facility] Comment on above: Performed By: #### C BC #### [facility] [address] [place] [address] Dr. Manda York ALT [Catalytic activity/Vol] 35 U/L Normal 14-59 [facility] Comment on above: Performed By: #### C BC #### [facility] [address] [place] [address] Dr. Manda York Anion gap [Moles/Vol] 13.0 mmol/L Normal [facility] Comment on above: Performed By: #### C BC #### [facility] [address] [place] [address] Dr. Manda York AST [Catalytic activity/Vol] 12 U/L Critically low 15-37 [facility] Comment on above: Performed By: #### C BC #### [facility] [address] [place] [address] Dr. Manda York Bilirubin [Mass/Vol] 0.2 mg/dL Normal 0.2-1.0 [facility] Comment on above: Performed By: #### C BC #### [facility] [address] [address] [address] Manda York Calcium [Mass/Vol] 8.7 mg/dL Normal 8.5-10.1 [facility] Comment on above: Performed By: #### C BC #### [facility] [address] [address] [address] Manda York Chloride [Moles/Vol] 104 mmol/L Normal 98-107 [facility] Comment on above: Performed By: #### C BC #### [facility] [address] [place] [address] Dr. Manda York CO2 [Moles/Vol] 24.9 mmol/L Normal 21.0-32.0 [facility] Comment on above: Performed By: #### C BC #### [facility] [address] [place] [address] Dr. Manda York Creatinine [Mass/Vol] 0.77 mg/dL Normal 0.55-1.02 [facility] Comment on above: Performed By: #### C BC #### [facility] [address] [place] [address] Dr. Manda York EGFR-AF CROATIAN >=60 Normal >=60 [facility] Comment on above: Performed By: #### C BC #### [facility] [address] [place] [address] Dr. Manda York EGFR-NON AF CROATIAN >=60 Normal >=60 [facility] Comment on above: Performed By: #### C BC #### [facility] [address] [place] [address] Dr. Manda York Globulin (S) [Mass/Vol] 3.8 g/dL Normal [facility] Comment on above: Performed By: #### C BC #### [facility] [address] [place] [address] Dr. Manda York Glucose [Mass/Vol] 110 mg/dL Critically high 74-[address] [facility] Comment on above: Performed By: #### C BC #### [facility] [address] [address] [address] Manda York Potassium [Moles/Vol] 3.9 mmol/L Normal 3.5-5.1 [facility] Comment on above: Performed By: #### C BC #### [facility] [address] [address] [address] Manda York Protein [Mass/Vol] 7.5 g/dL Normal 6.4-8.2 [facility] Comment on above: Performed By: #### C BC #### [facility] [address] [place] [address] Dr. Manda York Sodium [Moles/Vol] 138 mmol/L Normal 136-145 [facility] Comment on above: Performed By: #### C BC #### [facility] [address] [place] [address] Dr. Manda York Urea nitrogen [Mass/Vol] 17.0 mg/dL Normal 7.0-18.0 [facility] Comment on above: Performed By: #### C BC #### [facility] [address] [place] [address] Dr. Manda York Urea nitrogen/Creatinine [Mass ratio] 22.1 mg/mg Normal [facility] Comment on above: Performed By: #### C BC #### [facility] [address] [place] [address] Dr. Manda York SED RATE [facility] 2021 SED RATE 45 mm/hr Critically high <=20 [facility] Comment on above: Performed By: #### F T4 #### [facility] [address] [place] [address] Dr. Manda York CHRISTIAN EIA W/REFLEX 5 BIOMARKER Son 10-06-2021 CHRISTIAN Direct Positive Abnormal Negative [facility] Comment on above: Performed By: #### C BC #### [facility] [address] [place] [address] Dr. Manda York Anti-DNA (DS) Ab Qn 10 IU/mL Critically high 0-9 [facility] Comment on above: Result Comment: Nega tive <5 Equivocal 5 - 9 Positive >9 Performed By: #### C BC #### [facility] [address], [place] [address] Dr. Manda York DIGITAL ACCOUNT SUPERVISOR Antibodies <0.2 Normal 0.0-0.9 [facility] Comment on above: Performed By: #### C BC #### [facility] [address], [place] [address] Dr. Manda York SEE BELOW: Comment Normal [...] Sm (anti-Schneider) SLE 15 - 30% --------- DIGITAL ACCOUNT SUPERVISOR Mixed Connective Tissue Disease 95% (U1 nRNP, SLE 30 - 50% anti-ribonucleoprotein) Polymyositis and/or Dermatomyositis 20% --------- Scl-70 (antiDNA Scleroderma (diffuse) 20 - 35% topoisomerase) Crest 13% --------- Felicita-1 Polymyositis and/or Dermatomyositis 20 - 40% --------- Centromere B Scleroderma - Crest variant 80% Performed By: #### C BC #### [facility] [address], [place] [address] Dr. Manda York Sjogren's Anti-SS-A <0.2 Normal 0.0-0.9 [facility] Comment on above: Performed By: #### C BC #### [facility] [address] [place] [address] Dr. Manda York Sjogren's Anti-SS-B <0.2 Normal 0.0-0.9 [facility] Comment on above: Performed By: #### C BC #### [facility] [address] [place] [address] Dr. Manda York Schneider Antibodies <0.2 Normal 0.0-0.9 [facility] Comment on above: Performed By: #### C BC #### [facility] [address] [place] [address] Dr. Manda York CMV PLASMA PCRon 10-06-2021 CMV Quant DNA PCR (Plasma) Negative Normal Negative [facility] Comment on above: Result Comment: No C MV DNA detected. The quantitative range of this assay is 200 to 1 million IU/mL. Performed By: #### C MVPL #### [facility] [address] [place] [address] Dr. Manda York log10 CMV Qn DNA Pl UPTCAL Normal [facility] Comment on above: Result Comment: Unab le to calculate result since non-numeric result obtained for component test. Performed By: #### C MVPL #### [facility] [address] [place] [address] Dr. Manda York CMV AB IGMon 2021 Cytomegalovirus (CMV) Ab, IgM 35.5 AU/mL Critically high 0.0-29.9 [facility] Comment on above: Result Comment: Nega tive <30.0 Equivocal 30.0 - 34.9 Positive >34.9 A positive result is generally indicative of acute infection, reactivation or persistent IgM production. Performed By: #### S LEANN MELOC #### [facility] [address] [place] [address] Dr. Manda York CMV AB, IGGon 2021 Cytomegalovirus (CMV) Ab, IgG 6.30 U/mL Critically high 0.00-0.59 [facility] Comment on above: Result Comment: Nega tive <0.60 Equivocal 0.60 - 0.69 Positive >0.69 Performed By: #### S LORIE, THYLC #### [facility] [address] [place] [address] Dr. Manda York CBC AUTO DIFFon 10-03-2021 BASO # 0.1 103/ul Normal 0.0-0.1 [facility] Comment on above: Performed By: #### C BC #### [facility] [address] [place] [address] Dr. Manda York Basophils/100 WBC (Bld) 0.7 % Normal 0.2-2.0 [facility] Comment on above: Performed By: #### C BC #### [facility] [address] [place] [address] Dr. Manda York EO # 0.2 103/ul Normal 0.0-0.7 [facility] Comment on above: Performed By: #### C BC #### [facility] [address] [place] [address] Dr. Manda York Eosinophils/100 WBC (Bld) 2.0 % Normal 0.9-7.0 [facility] Comment on above: Performed By: #### C BC #### [facility] [address] [place] [address] Dr. Manda York Erythrocyte distribution width (RBC) [Ratio] 14.4 % Normal 11.0-15.0 [facility] Comment on above: Performed By: #### C BC #### [facility] [address] [place] [address] Dr. Manda York Hematocrit (Bld) [Volume fraction] 37.2 % Normal 36.0-48.0 [facility] Comment on above: Performed By: #### C BC #### [facility] [address] [place] [address] Dr. Manda York Hemoglobin (Bld) [Mass/Vol] 12.3 g/dL Normal 12.0-16.0 [facility] Comment on above: Performed By: #### C BC #### [facility] [address] [place] [address] Dr. Manda York IG # 0.02 10e3/ul Normal 0.00-0.03 [facility] Comment on above: Performed By: #### C BC #### [facility] [address] [place] [address] Dr. Manda York IG % 0.2 % Normal 0.0-0.5 [facility] Comment on above: Performed By: #### C BC #### [facility] [address] [place] [address] Dr. Manda York LYMPH # 2.1 103/ul Normal 1.2-3.8 [facility] Comment on above: Performed By: #### C BC #### [facility] [address] [place] [address] Dr. Manda York Lymphocytes/100 WBC (Bld) 26.4 % Normal 20.5-60.0 [facility] Comment on above: Performed By: #### C BC #### [facility] [address] [place] [address] Dr. Manda York MANUAL DIFF REQ NO Normal [facility] Comment on above: Performed By: #### C BC #### [facility] [address] [place] [address] Dr. Manda York MCH (RBC) [Entitic mass] 29.2 pg Normal 26.7-34.0 [facility] Comment on above: Performed By: #### C BC #### [facility] [address] [place] [address] Dr. Manda York MCHC (RBC) [Mass/Vol] 33.1 g/dL Normal 29.9-35.2 [facility] Comment on above: Performed By: #### C BC #### [facility] [address] [place] [address] Dr. Manda York MCV (RBC) [Entitic vol] 88.4 fL Normal 81.0-99.0 [facility] Comment on above: Performed By: #### C BC #### [facility] [address] [place] [address] Dr. Manda York MONO # 0.5 103/ul Normal 0.3-0.8 [facility] Comment on above: Performed By: #### C BC #### [facility] [address] [place] [address] Dr. Manda York Monocytes/100 WBC (Bld) 6.7 % Normal 1.7-12.0 [facility] Comment on above: Performed By: #### C BC #### [facility] [address] [place] [address] Dr. Manda York NEUT # 5.2 103/ul Normal 1.4-6.5 [facility] Comment on above: Performed By: #### C BC #### [facility] [address] [place] [address] Dr. Manda York Neutrophils/100 WBC (Bld) 64.0 % Normal 43.0-75.0 [facility] Comment on above: Performed By: #### C BC #### [facility] [address] [place] [address] Dr. Manda York Platelet mean volume (Bld) [Entitic vol] 10.5 fL Normal 9.5-13.5 [facility] Comment on above: Performed By: #### C BC #### [facility] [address] [place] [address] Dr. Manda York PLT 265 103/ul Normal 150-450 [facility] Comment on above: Performed By: #### C BC #### [facility] [address] [place] [address] Dr. Manda York RBC 4.21 106/ul Normal 4.20-5.40 [facility] Comment on above: Performed By: #### C BC #### [facility] [address] [place] [address] Dr. Manda York WBC 8.1 103/ul Normal 4.0-11.0 [facility] Comment on above: Performed By: #### C BC #### [facility] [address] [place] [address] Dr. Manda York CRPon 10-03-2021 CRP [Mass/Vol] mg/L Normal <=1.0 [facility] Comment on above: Performed By: #### F T4 #### [facility] [address] [place] [address] Dr. Manda York SED RATE [facility] 2021 SED RATE 34 mm/hr Critically high <=20 [facility] Comment on above: Performed By: #### C BC #### [facility] [address] [address] [address] Manda York CHLORIDE (POC)Ordered By: Jae Holley on 10-07-2020 Chloride [Moles/Vol] 106 mmol/L 98 - 10 7 mmol/L [facility] Phone: Catheterization and angiogra phy procedure details panelOrdered By: Jonas Holley on 10-07-2020 Cardiac Diagnostic Report Demographics Patient TERA Torres Date of Study 10/07/2020 Name Date of 1980 Gender Female Age 40 year(s) Race Room [id number]^LEYDI^JONAS Height: 67 inch, 170.18 cm Number Corporate [id number] Weight: 234 pounds, 106.1 kg ID # Patient [id number] BSA: 2.16 m^2 BMI: 36.65 kg/m^2 Acct # MR # [id number] Performing Jonas Holley Physician Referring # Physician [...] Right coronary angiography. Contrast Material: - Isovue 59163 ml Fluoroscopy Time: Diagnostic: 2:12 minutes. Total: [...] assessed as CCS II according to the Kosovan clinical classification. Hemodynamics Condition: Baseline Room Air [...] + + !Aortic (more content not included)... Burt Work Phone: Gwyn Norris Incoming Cardio Results From [facility] - 10/07/2020 10:37 AM EDT Cardiac Diagnostic Report Demographics Patient TERA Torres Date of Study 10/07/2020 Name Date of 1980 Gender Female Age 40 year(s) Race Room [id number]^GINO Height: 67 inch, 170.18 cm Number Corporate [id number] Weight: 234 pounds, 106.1 kg ID # Patient [id number] BSA: 2.16 m^2 BMI: 36.65 kg/m^2 Acct # MR # [id number] Performing Jonas Holley Physician Referring # Physician [...] Right coronary angiography. Contrast Material: - Isovue 88242 ml Fluoroscopy Time: Diagnostic: 2:12 minutes. Total: [...] assessed as CCS II according to the Kosovan clinical classification. Hemodynamics Condition: Baseline Room Air [...] +--------- + + Shunts Oxygen Values O2 [id number] Gudasdmsmcp937.52 [facility] Phone: [facility] Phone: [facility] Phone: Creatinine W/GFR Point of Ca reOrdered By: Jonas Holley on 10-07-2020 Creatinine [Mass/Vol] 0.64 mg/dL 0.51 - 1.19 mg/dL [facility] Phone: GFR Non- >60 >60 mL/min [facility] Phone: GFR/1.73 sq M.predicted MDRD (S/P/Bld) [Vol rate/Area] mL/min/{1.73_m2} >60 mL/min [facility] Phone: GFR/1.73 sq M.predicted MDRD (S/P/Bld) [Vol rate/Area] [facility] Phone: Comment on above: Average GFR for 40-4 9 years old: 99 mL/min/1.73sq m Chronic Kidney Disease: <60 mL/min/1.73sq m Kidney failure: <15 mL/min/1.73sq m eGFR calculated using average adult body mass. Additional eGFR calculator available at: http://www.[employer]/multiple_crcl_2012.htm Hemoglobin and hematocrit, b loodOrdered By: Jonas Holley on 10-07-2020 Hematocrit (Bld) [Volume fraction] 41 % 36 - 46 % [facility] Phone: Hemoglobin (Bld) [Mass/Vol] 14.0 g/dL 12.0 - 16.0 g/dL [facility] Phone: No Panel InformationOrdered By: Jonas Holley on 10-07-2020 [facility] Phone: POCT GlucoseOrdered By: Anu Holley on 10-07-2020 Glucose [Mass/Vol] 98 mg/dL 74 - 100 mg/dL [facility] Phone: POCT urine pregnancyOrdered By: Jonas Holley on 10-07-2020 Beta HCG ( test) Ql (U) Negative NEGATIVE [facility] Phone: Comment on above: Specimens with hCG l evels near the threshold of the test (25 mIU/mL) may give a negative or indeterminate result. In such cases, another test should be performed with a new specimen in 48-72 hours. If early is suspected clinically in this setting, correlation with quantitative serum b-hCG level is suggested. [facility] Phone: POTASSIUM (POC)Ordered By: Al Holley on 10-07-2020 Potassium [Moles/Vol] 3.8 mmol/L 3.5 - 4.5 mmol/L [facility] Phone: Platelet Counton 10-07-2020 Platelets (Bld) [#/Vol] 299 10*3/uL Normal 138-453 [facility] Comment on above: Performed By: #### P LT #### [facility] [address] [place] [address] Jump Roll Operator: Rick Serrano MD Platelet countOrdered By: Jae Holley on 10-07-2020 Platelets (Bld) [#/Vol] 299 10*3/uL [facility] Phone: [facility] Phone: SODIUM (POC)Ordered By: Anu Holley on 10-07-2020 Sodium [Moles/Vol] 141 mmol/L 138 - 146 mmol/L [facility] Phone: Coding Summary.on 01-12-2019 Coding Summary. CODING DATE: 01/12/2019 [facility] STATUS: Home (Routine DC) PAYOR: Medicaid EAPG [...] mass index (BMI) 34.0-34.9, adult Z79.899 Other prison (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 However, the narrative phrase printed from the coding software may appear abbreviated, or result in slightly different terminology. Coded By: Luz Judd Date Saved: 01/12/2019 10:25 am [facility] Coding Summary. CODING DATE: 01/12/2019 [facility] STATUS: Home (Routine DC) PAYOR: Medicaid EAPG [...] mass index (BMI) 34.0-34.9, adult Z79.899 Other prison (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 However, the narrative phrase printed from the coding software may appear abbreviated, or result in slightly different terminology. Revised Coded By: Luz Judd Revised Date Saved: 01/12/2019 10:25 am [facility] XR Chest 2 Viewson 9 XR [...] M.D. Transcribed by: BILL Technologist: ZOILA Kenney [facility] Auto Diffon 01-11-2019 Basophils/100 WBC (Bld) 0.8 % Normal 0.0-2.0 [facility] Comment on above: Order Comment: Order Added by Discern Expert. Performed By: #### 1 [id number], 4783717, 5520495, 92881217, 9939248 #### [facility] [address] [place] [address] Basophils/Leukocytes Auto (Bld) [Pure # fraction] 0.1 E9/L Normal 0.0-0.2 [facility] Comment on above: Order Comment: Order Added by Discern Expert. Performed By: #### 1 6014537, 5935086, 3082887, 0942397, 78412826, 6929885, 6192313, 8436314, 7293965, 50683511, 4662310 #### [facility] [address] [place] [address] Eosinophils/100 WBC (Bld) 1.9 % Normal 0.0-8.0 [facility] Comment on above: Order Comment: Order Added by Discern Expert. Performed By: #### 1 1063574, 2223890, 8617141, 4330896, 02573306, 1323162, 3572180, 3430336, 1933464, 17672429, 7459855 #### [facility] [address] [place] [address] Eosinophils/Leukocytes Auto (Bld) [Pure # fraction] 0.1 E9/L Normal 0.0-0.5 [facility] Comment on above: Order Comment: Order Added by Discern Expert. Performed By: #### 1 2694194, 1358964, 6278543, 8969961, 76276484, 9369058, 0031133, 1911772, 4453708, 15850702, 7872463 #### [facility] [address] [place] [address] Lymphocytes/100 WBC (Bld) 28.0 % Normal 14.0-50.0 [facility] Comment on above: Order Comment: Order Added by Discern Expert. Performed By: #### 1 3832970, 4311410, 6688167, 4342660, 43877870, 4493246, 2363609, 1074572, 9513744, 34298997, 9595500 #### [facility] [address] [place] [address] Lymphocytes/Leukocytes Auto (Bld) [Pure # fraction] 2.2 E9/L Normal 1.0-4.0 [facility] Comment on above: Order Comment: Order Added by Discern Expert. Performed By: #### 1 6804463, 3190450, 6727134, 6887585, 75013919, 5985292, 8463719, 7420760, 0084652, 35135005, 8137333 #### [facility] [address] [place] [address] Monocytes/100 WBC (Bld) 7.0 % Normal 4.0-14.0 [facility] Comment on above: Order Comment: Order Added by Discern Expert. Performed By: #### 1 9923788, 4950439, 6643412, 1440559, 86294162, 9604169, 4517922, 0305436, 1354674, 97019423, 9572302 #### [facility] [address] [place] [address] Monocytes/Leukocytes Auto (Bld) [Pure # fraction] 0.6 E9/L Normal 0.2-1.0 [facility] Comment on above: Order Comment: Order Added by Discern Expert. Performed By: #### 1 9789229, 6724555, 1393551, 5949240, 99259556, 4141793, 4653591, 2611161, 9436348, 67388898, 7904980 #### [facility] [address] [place] [address] Neutrophils/100 WBC (Bld) 62.3 % Normal 36.0-75.0 [facility] Comment on above: Order Comment: Order Added by Discern Expert. Performed By: #### 1 6819813, 0661597, 2723666, 1473933, 06913552, 9591442, 3343325, 8558733, 6012443, 97615561, 2258662 #### [facility] [address] [place] [address] Neutrophils/Leukocytes Auto (Bld) [Pure # fraction] 4.9 E9/L Normal 2.0-7.5 [facility] Comment on above: Order Comment: Order Added by Discern Expert. Performed By: #### 1 9714859, 4116058, 6348757, 9875763, 89341798, 9337395, 3668347, 9949566, 9141246, 99307180, 5246400 #### [facility] [address] [place] [address] BMPon 01-11-2019 Creatinine [Mass/Vol] 0.7 mg/dL Normal 0.5-1.3 [facility] Comment on above: Performed By: #### 1 1358031, 9533964, 3220272, 4355308, 55123153, 0661848, 2116069, 7826728, 5181363, 68896790, 2327371 #### [facility] [address] [place] [address] Urea nitrogen [Mass/Vol] 11 mg/dL Normal 5-21 [facility] Comment on above: Performed By: #### 1 2622001, 1782843, 2097059, 0330949, 26426381, 8896806, 4216242, 8655134, 1956909, 78122443, 6094897 #### [facility] [address] [place] [address] Urea nitrogen/Creatinine [Mass ratio] 16 No Units Normal 10-20 [facility] Comment on above: Performed By: #### 1 3906652, 6807056, 2607347, 6045190, 71301254, 3681336, 6010696, 3734331, 7299199, 97973128, 9187831 #### [facility] [address] [place] [address] Anion gap [Moles/Vol] 14 mmol/L Normal 6-16 [facility] Comment on above: Performed By: #### 1 7403485, 7123792, 7770870, 4635921, 40807051, 1966911, 6617535, 5643464, 8847834, 01651778, 4684125 #### [facility] [address] [place] [address] Calcium [Mass/Vol] 8.9 mg/dL Normal 8.9-11.1 [facility] Comment on above: Performed By: #### 1 9828407, 5665061, 7606534, 7946429, 13432082, 4674162, 6809414, 5051703, 9121943, 55806071, 3286311 #### [facility] [address] [place] [address] Chloride [Moles/Vol] 107 mmol/L Normal 101-111 [facility] Comment on above: Performed By: #### 1 4790556, 2256137, 9503939, 8699145, 18068709, 6300120, 9050726, 0685888, 2203013, 59538667, 8403823 #### [facility] [address] [place] [address] CO2 [Moles/Vol] 22 mmol/L Normal 21-31 [facility] Comment on above: Performed By: #### 1 1071142, 2491650, 9438089, 5941716, 75947940, 8910006, 8847114, 5409956, 3937695, 26893765, 0656117 #### [facility] [address] [place] [address] Glucose [Mass/Vol] 122 mg/dL Normal 55-199 [facility] Comment on above: Result Comment: If t his glucose result represents a fasting glucose, interpretation should refer to the following reference range: 55-99 mg/dL Performed By: #### 1 9881458, 4460331, 6893266, 2142671, 96471739, 5303815, 1689758, 8452055, 7383423, 67605114, 2683853 #### [facility] [address] [place] [address] Potassium [Moles/Vol] 3.8 mmol/L Normal 3.5-5.3 [facility] Comment on above: Performed By: #### 1 4513353, 7482394, 6202357, 6894841, 82584316, 4917178, 0350936, 5526627, 6285814, 76536788, 4512862 #### [facility] [address] [place] [address] Sodium [Moles/Vol] 139 mmol/L Normal 135-145 [facility] Comment on above: Performed By: #### 1 7011802, 4940099, 0957988, 5543840, 08184502, 5853921, 3475577, 8927985, 2653260, 58787556, 8102964 #### [facility] [address] [place] [address] CBC w/ Auto Diffon 9 Erythrocyte distribution width (RBC) [Ratio] 14.0 % Normal 10.9-14.2 [facility] Comment on above: Performed By: #### 1 3559896, 8319263, 0802506, 2732784, 36333977, 0155912, 7845379, 3852466, 5821585, 85344283, 3917012 #### [facility] [address] [place] [address] Hematocrit (Bld) [Volume fraction] 39.9 % Normal 34.0-46.0 [facility] Comment on above: Performed By: #### 1 8913966, 7390614, 7167341, 3576533, 10633271, 8272191, 8074571, 2525665, 5253421, 35631976, 7295065 #### [facility] [address] [place] [address] Hemoglobin (Bld) [Mass/Vol] 13.5 g/dL Normal 12.0-16.0 [facility] Comment on above: Performed By: #### 1 7358039, 2665160, 7669098, 3556354, 13531769, 2144725, 7061636, 8899114, 7570198, 55133242, 7054777 #### [facility] [address] [place] [address] MCH (RBC) [Entitic mass] 29.4 pg Normal 27.0-34.0 [facility] Comment on above: Performed By: #### 1 7711067, 5679248, 8921547, 7365996, 79532356, 1570799, 8975804, 9836257, 4229772, 82893754, 9768964 #### [facility] [address] [place] [address] MCHC (RBC) [Mass/Vol] 33.7 g/dL Normal 33.3-35.7 [facility] Comment on above: Performed By: #### 1 1547684, 3774040, 6200634, 8544061, 02596211, 2767421, 7962774, 9003963, 2065119, 66614090, 4685567 #### [facility] [address] [place] [address] MCV (RBC) [Entitic vol] 87.4 fL Normal 80.0-100.0 [facility] Comment on above: Performed By: #### 1 1852791, 3077355, 1656914, 5362501, 57532791, 4432474, 8408240, 7230273, 8557716, 65730063, 4933686 #### [facility] [address] [place] [address] Platelet mean volume (Bld) [Entitic vol] 8.5 fL Normal 6.4-10.8 [facility] Comment on above: Performed By: #### 1 8781733, 3985348, 1664473, 2910584, 17470084, 2352793, 3590289, 1122020, 6843938, 97625783, 2195938 #### [facility] [address] [place] [address] Platelets (Bld) [#/Vol] 244.0 E9/L Normal 150.0-500.0 [facility] Comment on above: Performed By: #### 1 5645796, 4410701, 2772994, 7413692, 95451747, 7054858, 5618421, 8380485, 0585941, 86464903, 2906956 #### [facility] [address] [place] [address] RBC (Bld) [#/Vol] 4.6 E12/L Normal 4.3-5.9 [facility] Comment on above: Performed By: #### 1 5375783, 2873867, 3502613, 2881941, 45368828, 9264967, 3072366, 7445635, 4480315, 92516164, 0134868 #### [facility] [address] [place] [address] WBC corrected for nucl RBC Auto (Bld) [#/Vol] 7.9 E9/L Normal 4.0-11.0 [facility] Comment on above: Performed By: #### 1 5313930, 2238225, 7738615, 4792545, 37322632, 8577998, 4648609, 5829993, 5334108, 98689567, 3519724 #### [facility] [address] [place] [address] D-Dimeron 01-11-2019 Fibrin D-dimer FEU (PPP) [Mass/Vol] 265 ng/mL Normal 215-500 [facility] Comment on above: Result Comment: This [...] infections Liver cirrhosis Performed By: #### 1 0528710, 6954550, 9874766, 8465411, 04410300, 8936261, 2260161, 4705127, 2429008, 61537504, 2430485 #### [facility] [address] [place] [address] ED Clinical Summaryon 2018 ED Clinical Summary [address] [address] ED Clinical Summary Person Information Name: ARIADNA HALEY [place] Age: 38 Years : 1980 12:00 AM Sex: Female Language: Rwandan PCP: Charles Nicole DO Marital Status: Single Phone: [phone] Visit Id: Visit Reason: Chest pain; CHEST [...] 01/11/2019 6:42 PM 01/11/2019 6:42 PM ADDRESS: [address] [place] [id number] [facility] DOC NOTES: MEDICAL INFORMATION: Prescriptions Given: PATIENT EDUCATION INFORMATION: Instructions: Smoking Cessation; Chest Pain (Nonspecific) Follow up: With: Address: When: [place] [phone] Business (1) Within 2 to 3 days Comments: Return to ED if symptoms worsen DIAGNOSIS: 1:Chest pain Normal [facility] ED Note-Physicianon 01-12-20 ED Note-Physician Basic [...] Charles Nicole Within 2 to [address] [place] [address] [facility] (1) Additional Instructions: Return to [...] Lymph Auto: 28 % (01/11/19 16:46:00 EDT) [place] Auto: 7 % (01/11/19 16:46:00 EDT) Eos Auto: 1.9 % (01/11/19 16:46:00 EDT) Basophil Auto: 0.8 % (01/11/19 16:46:00 EDT) Neutro Absolute: 4.9 E9/L (01/11/19 16:46:00 EDT) Lymph Absolute: 2.2 E9/L (01/11/19 16:46:00 EDT) Galax Absolute: 0.6 E9/L (01/11/19 16:46:00 EDT) Eos [...] Results EC01/11/19: SINUS RHYTHM RATE 84, NORMAL [place] AND QRS, NO ST ELEVATION OR DEPRSSION, NORMAL AXIS, NORMAL QTC NORMAL ECG Signed By: Orin Browne DO 01/11/2019 15:54:18 Normal [facility] Comment on above: Result Comment: Elec [...] and skin patches. Some may be available [id number]-[id number] and others require a prescription. ? Antidepressant [...] Document Reviewed: 08/18/2012 ExitCare? Patient Information ?2014 [employer]. This information is not intended to replace [...] Document Reviewed: 12/13/2008 ExitCare? Patient Information ?2015 [employer]. This information is not intended to replace advice given to you by your health care provider. Make sure you discuss any questions you have with your health care provider. Normal [facility] ED Patient Summaryon 019 ED Patient Summary [address] [address] Patient Discharge Instructions Person Information Name: ARIADNA HALEY Age: 38 Years Arrival Date: 01/11/2019 3:44 PM Discharge Diagnosis: 1:Chest pain Primary Care Physician: Charles Nicole DO Provider Information Primary Provider: Orin Browne DO Advanced Brand Strategist:None The exam and treatment you received in the Emergency Department were for an urgent problem and are not intended as complete care. It is important that you follow up with a doctor, nurse practitioner, or physician?s mechanic's assistant for ongoing care. If your symptoms [...] Follow-up Instructions: With: Address: When: Charles Nicole [address] [place], [place] [phone] Business (1) Within 2 to 3 days [...] opioids can be used to help relieve ncmwqsjj-kd-zoaqwt pain and are often prescribed following a [...] be struggling with addiction, tell your health vocational childcare teacher and ask for guidance or call [facility] National Helpline at 6-516-886-OMYY. e Source: [place] Department of Health and Human Services/Center for Disease Control & Prevention [facility] Medications Given: Medication Dose Route No medications found. Medication Information: Medications to Continue with No Changes Other Medications metformin (metformin 500 mg ER Tab) 250 Milligram By Mouth 2 times a day. Comment: Pharmacy Information: Thank you for choosing [facility] Patient Education Materials: Smoking Cessation [...] and skin patches. Some may be available [id number] and others require a prescription. ? Antidepressant [...] Document Reviewed: 08/18/2012 ExitCare? Patient Information ?2014 [employer]. This information is not intended to replace [...] Document Reviewed: 12/13/2008 ExitCare? Patient Information ?2014 [employer]. This information is not intended to replace advice given to you by your health care provider. Make sure you discuss any questions you have with your health care provider. TERA Dorantes NICOLE B , have received the following patient education materials/instruction s and have verbalized understanding: Patient Education Materials: Smoking Cessation; Chest Pain (Nonspecific) Follow-up Instructions: With: Address: When: [place] [address] [facility] () Within 2 to 3 days Comments: Return to ED if symptoms worsen Prescriptions: Patient Signature Date Clinician/Nurse Signature Date 01/11/19 18:42:28 Normal [facility] Progress Note-Nurseon 2018 Progress Note-Nurse Pt explained discharge instructions and voiced understanding. Pt sts she will follow up with her PCP and denies any furthe questions at this time. Normal [facility] Troponin 0 Hr.on 01-11-2019 Troponin I.cardiac [Mass/Vol] ng/mL Normal <=0.03 [facility] Comment on above: Result Comment: New Troponin Assay 10/05/13 [place] Cutoff value > or = 0.03 ng/mL in conjunction with clinical conditions of myocardial infarction. (www.escardio.org/guidelines) Performed By: #### 1 8301679, 8885628, 6997141, 0699039, 48015937, 6778337, 6756883, 2668477, 8367854, 92181579, 2802564 #### [facility] [address] [place] [address] eGFRon 01-11-2019 GFR/1.73 sq M predicted among blacks MDRD (S/P/Bld) [Vol rate/Area] mL/min/{1.73_m2} Normal >=59 [facility] Comment on above: Order Comment: Order added by Discern Expert. Result Comment: eGFR is race adjusted. AA=. Performed By: #### 1 4242896, 8886602, 3329137, 1837577, 90508186, 2381848, 1267617, 6894982, 0818458, 35813572, 9895386 #### [facility] [address] [place] [address] GFR/1.73 sq M predicted among non-blacks MDRD (S/P/Bld) [Vol rate/Area] mL/min/{1.73_m2} Normal >=59 [facility] Comment on above: Order Comment: Order added by Discern Expert. Result Comment: Um Specialist anthony kidney disease could be indicated at eGFR's of less than 60 mL/min/1.73m2. Kidney failure is indicated at less than 15 mL/min/1.73m2. Performed By: #### 1 9755907, 8997383, 2143116, 7132572, 84478804, 3904128, 4007011, 2855474, 4571735, 35219210, 5952475 #### [facility] [address] [place] [address] SPINE, LUMBOSACRAL CMPLT(TOOTIE DING)on 12-05-2018 SPINE, LUMBOSACRAL CMPLT(BENDING) Patient Name: ARIADNA HALEY STUDY: SPINE, LUMBOSACRAL; CMPLT(BENDING); 12/05/2018 1:47 pm INDICATION: LUMBAR XR. COMPARISON: None. ACCESSION NUMBER(S): [id number] ORDERING CLINICIAN: KADE RICHARDSON FINDINGS: No lumbar spine fracture. Scattered small endplate osteophytes. Vertebral body and disc space heights are are maintained. 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 No spondylolisthesis. No instability on flexion or extension. IMPRESSION: Degenerative changes of the lumbar spine without instability. Electronically signed by: EARNESTINE MANUEL MD Normal [facility] Coding Summary.on 09-15-2018 Coding Summary. CODING DATE: 09/15/2018 FINAL [facility] DSC STATUS: Home (Routine DC) PAYOR: Medicaid [...] Judd Date Saved: 09/15/2018 07:15 am Normal [facility] Auto Diffon 09-14-2018 Basophils/100 WBC (Bld) 0.6 % Normal 0.0-2.0 [facility] Comment on above: Order Comment: Order Added by Discern Expert. Performed By: #### 1 6044863, 2601326, 4391759, 9604294, 40045883, 7069337, 0752254, 5745807, 1374152, 37206267, 5913928 #### [facility] [address] [place] [address] Basophils/Leukocytes Auto (Bld) [Pure # fraction] 0.1 E9/L Normal 0.0-0.2 [facility] Comment on above: Order Comment: Order Added by Discern Expert. Performed By: #### 1 6239559, 9136258, 3387085, 6393625, 90356908, 2787780, 5177438, 5693405, 2706389, 85098267, 2388786 #### [facility] [address] [place] [address] Eosinophils/100 WBC (Bld) 2.2 % Normal 0.0-8.0 [facility] Comment on above: Order Comment: Order Added by Discern Expert. Performed By: #### 1 6308579, 8767294, 7443861, 1184221, 20286066, 5450919, 3303200, 3765096, 7696955, 37944713, 0771772 #### [facility] [address] [place] [address] Eosinophils/Leukocytes Auto (Bld) [Pure # fraction] 0.2 E9/L Normal 0.0-0.5 [facility] Comment on above: Order Comment: Order Added by Discern Expert. Performed By: #### 1 7670634, 0318433, 2175640, 1631029, 07570724, 9969289, 2376642, 2185751, 1986099, 12748333, 2570391 #### [facility] [address] [place] [address] Lymphocytes/100 WBC (Bld) 30.6 % Normal 14.0-50.0 [facility] Comment on above: Order Comment: Order Added by Discern Expert. Performed By: #### 1 7481976, 9513386, 6921169, 1652935, 24978027, 0145800, 6081710, 0947298, 8133765, 53770563, 2986490 #### [facility] [address] [place] [address] Lymphocytes/Leukocytes Auto (Bld) [Pure # fraction] 3.0 E9/L Normal 1.0-4.0 [facility] Comment on above: Order Comment: Order Added by Discern Expert. Performed By: #### 1 8749555, 5607038, 0123049, 1699310, 80057172, 6963020, 7061898, 2442217, 5291865, 66633609, 8195706 #### [facility] [address] [place] [address] Monocytes/100 WBC (Bld) 7.2 % Normal 4.0-14.0 [facility] Comment on above: Order Comment: Order Added by Discern Expert. Performed By: #### 1 4454485, 8602315, 0015667, 4001267, 87516832, 1030557, 6495391, 5401044, 1139066, 28535938, 7504350 #### [facility] [address] [place] [address] Monocytes/Leukocytes Auto (Bld) [Pure # fraction] 0.7 E9/L Normal 0.2-1.0 [facility] Comment on above: Order Comment: Order Added by Discern Expert. Performed By: #### 1 0700895, 7095964, 3648023, 4502550, 99679092, 5906101, 5346754, 4258125, 2072803, 73470309, 4006356 #### [facility] [address] [place] [address] Neutrophils/100 WBC (Bld) 59.4 % Normal 36.0-75.0 [facility] Comment on above: Order Comment: Order Added by Discern Expert. Performed By: #### 1 0091648, 1112975, 8329900, 6168018, 26720870, 4274059, 6763792, 4553098, 0086363, 12988022, 6086835 #### [facility] [address] [place] [address] Neutrophils/Leukocytes Auto (Bld) [Pure # fraction] 5.9 E9/L Normal 2.0-7.5 [facility] Comment on above: Order Comment: Order Added by Discern Expert. Performed By: #### 1 2239797, 5535547, 0692648, 7883689, 82262651, 9953626, 8644091, 1931473, 4638602, 01322086, 3228778 #### [facility] [address] [place] [address] BMP 09-14-2018 Creatinine [Mass/Vol] 0.6 mg/dL Normal 0.5-1.3 [facility] Comment on above: Performed By: #### 1 1776524, 6283487, 7619538, 9679472, 29027156, 0331130, 2688561, 9265770, 8016714, 28162828, 1753918 #### [facility] [address] [place] [address] Urea nitrogen [Mass/Vol] 15 mg/dL Normal 5-21 [facility] Comment on above: Performed By: #### 1 5528624, 9497446, 1221327, 1904094, 38244114, 4167125, 7569512, 9075404, 2013857, 96273350, 1467570 #### [facility] [address] [place] [address] Urea nitrogen/Creatinine [Mass ratio] 25 No Units High 10-20 [facility] Comment on above: Performed By: #### 1 3456474, 9352935, 3988290, 1982830, 43304336, 2846695, 8473547, 2723846, 3366851, 19507439, 3029896 #### [facility] [address] [place] [address] Anion gap [Moles/Vol] 13 mmol/L Normal 6-16 [facility] Comment on above: Performed By: #### 1 5402253, 8112873, 0555196, 1191487, 38656311, 7847141, 6363167, 3647279, 0303897, 03031885, 1395584 #### [facility] [address] [place] [address] Calcium [Mass/Vol] 9.5 mg/dL Normal 8.9-11.1 [facility] Comment on above: Performed By: #### 1 3100222, 3389407, 8399280, 6272360, 23175414, 6081443, 2700374, 8337851, 0552753, 88649093, 0779066 #### [facility] [address] [place] [address] Chloride [Moles/Vol] 103 mmol/L Normal 101-111 [facility] Comment on above: Performed By: #### 1 2139041, 1864397, 4448540, 6274092, 68966542, 5736332, 2720003, 8841212, 9630104, 98872600, 4883705 #### [facility] [address] [place] [address] CO2 [Moles/Vol] 24 mmol/L Normal 21-31 [facility] Comment on above: Performed By: #### 1 8566603, 2414749, 8810534, 1180163, 00366580, 1177756, 2497041, 3792101, 3674309, 61011356, 3791150 #### [facility] [address] [place] [address] Glucose [Mass/Vol] 102 mg/dL Normal 55-199 [facility] Comment on above: Result Comment: If t his glucose result represents a fasting glucose, interpretation should refer to the following reference range: 55-99 mg/dL Performed By: #### 1 2314734, 2799858, 5609965, 7137272, 70961991, 0658711, 0740823, 9174416, 1692590, 99646767, 7952260 #### [facility] [address] [place] [address] Potassium [Moles/Vol] 3.6 mmol/L Normal 3.5-5.3 [facility] Comment on above: Performed By: #### 1 6863647, 2968222, 8923548, 8488372, 24267209, 4309451, 8188041, 5100120, 0121698, 98862712, 4691042 #### [facility] [address] [place] [address] Sodium [Moles/Vol] 136 mmol/L Normal 135-145 [facility] Comment on above: Performed By: #### 1 5044069, 3204230, 9379574, 2326752, 25440260, 3499423, 9646935, 0132407, 9855685, 75930581, 7165276 #### [facility] [address] [place] [address] CBC w/ Auto Diffon Erythrocyte distribution width (RBC) [Ratio] 14.2 % Normal 10.9-14.2 [facility] Comment on above: Performed By: #### 1 4604554, 4310164, 3737584, 7687974, 36006741, 3267671, 9699355, 6784904, 6186672, 81329099, 9517079 #### [facility] [address] [place] [address] Hematocrit (Bld) [Volume fraction] 39.4 % Normal 34.0-46.0 [facility] Comment on above: Performed By: #### 1 9624454, 4850354, 7261467, 5174052, 29510320, 2047060, 7778973, 7146785, 3416698, 62689864, 3868951 #### [facility] [address] [place] [address] Hemoglobin (Bld) [Mass/Vol] 13.3 g/dL Normal 12.0-16.0 [facility] Comment on above: Performed By: #### 1 2782157, 3829664, 8377811, 0376511, 98433195, 0496710, 7861763, 8787790, 7229844, 23030546, 3568328 #### [facility] [address] [place] [address] MCH (RBC) [Entitic mass] 29.2 pg Normal 27.0-34.0 [facility] Comment on above: Performed By: #### 1 7435574, 6336448, 4908301, 9152769, 92858333, 0186830, 3033347, 7507439, 2314246, 81997524, 2087607 #### [facility] [address] [place] [address] [facility] (RBC) [Mass/Vol] 33.8 g/dL Normal 33.3-35.7 [facility] Comment on above: Performed By: #### 1 0987462, 2209934, 6310164, 5828913, 63342738, 4038596, 4405568, 4986075, 1043475, 32181490, 5861130 #### [facility] [address] [place] [address] MCV (RBC) [Entitic vol] 86.6 fL Normal 80.0-100.0 [facility] Comment on above: Performed By: #### 1 8632390, 2908896, 1747535, 0579724, 36824402, 3372571, 3781128, 3255481, 5287349, 16274133, 8088820 #### [facility] [address] [place] [address] Platelet mean volume (Bld) [Entitic vol] 8.8 fL Normal 6.4-10.8 [facility] Comment on above: Performed By: #### 1 0539254, 0156553, 8214310, 0170184, 90662925, 1390555, 7681401, 7646129, 4317222, 97013897, 0662209 #### [facility] [address] [place] [address] Platelets (Bld) [#/Vol] 307.0 E9/L Normal 150.0-500.0 [facility] Comment on above: Performed By: #### 1 6597800, 6756809, 0307836, 5443931, 51885962, 8769651, 7721010, 7263918, 4825703, 86625205, 6139213 #### [facility] [address] [place] [address] RBC (Bld) [#/Vol] 4.6 E12/L Normal 4.3-5.9 [facility] Comment on above: Performed By: #### 1 2508450, 9168665, 8730581, 9136040, 10451686, 6867735, 2132972, 0719037, 4722853, 91796284, 7492846 #### [facility] [address] [place] [address] WBC corrected for nucl RBC Auto (Bld) [#/Vol] 9.9 E9/L Normal 4.0-11.0 [facility] Comment on above: Performed By: #### 1 2043424, 6205651, 3587680, 4221244, 35596745, 0373653, 1084949, 5380952, 0010565, 55271939, 4644001 #### [facility] [address] [place] [address] CKon 09-14-2018 CK [Catalytic activity/Vol] 53 Int._Unit/L Normal 14-261 [facility] Comment on above: Performed By: #### 1 9341959, 2262843, 3014792, 6080938, 27726166, 9411768, 6867615, 9698010, 9000138, 61334718, 0539289 #### [facility] [address] [place] [address] ED Clinical Summaryon 2018 ED Clinical Summary [address] [address] ED Clinical Summary Person Information Name: ARIADNA HALEY [facility] Age: 37 Years : 1980 12:00 AM Sex: Female Language: Rwandan PCP: Charles Nicole DO Marital Status: Single Phone: [phone] Visit Id: Visit Reason: Anxiety; Paraesthesia; NUMBNESS [...] 09/14/2018 12:17 AM 09/14/2018 12:17 AM ADDRESS: [address] [place] [address] [place] [id number] PHYS DOC NOTES: MEDICAL INFORMATION: Prescriptions Given: Prescription Display gabapentin (gabapentin 100 mg Cap) 100 mg = 1 cap(s), Oral, Daily, X 7 day(s), # 7 cap(s), Refills(s) 0, Pharmacy: [facility] gabapentin (gabapentin 100 mg Cap) 100 mg = 1 cap(s), Oral, Daily, X 7 day(s), # 7 cap(s), Refills(s) 0, Pharmacy: [facility]/pharmacy #[id number] magnesium oxide (magnesium oxide 400 mg Tab) 400 mg = 1 tab(s), Oral, Daily, X 7 day(s), # 7 tab(s), Refills(s) 0, Pharmacy: [facility] magnesium oxide (magnesium oxide 400 mg Tab) 400 mg = 1 tab(s), Oral, Daily, X 7 day(s), # 7 tab(s), Refills(s) 0, Pharmacy: [facility]/pharmacy #[id number] Home Meds Display metformin (metformin 500 mg ER Tab) 250 mg, Oral, BID, Refills(s) 0 PATIENT EDUCATION INFORMATION: Instructions: Paresthesia, Nmrl-qq-Uvfj; Restless Legs Syndrome Follow up: With: [facility]: [facility] [address] [place] [address] Business (1) Within 1 to 2 days Comments: neurologist you may also follow up with him With: Address: When: Charles Nicole [address] [place] [phone] Business (1) Within 1 to 2 days Comments: Return to ED if symptoms worsen DIAGNOSIS: 1:Restless leg syndrome Normal [facility] ED Note-Nursingon 09-14-2018 ED Note-Nursing Pt up to RR, gait steady. Normal [facility] ED Note-Nursing Aware of need for urine specimen, denies urge at present, states will notify when able to produce sample, will monitor. Normal [facility] ED Note-Physicianon 09-15-19 19 ED Note-Physician Basic Information Time Seen: Géneiss Lozoya DO 09/13/2018 22:45 Chief Complaint C/o [...] day(s), # 7 cap(s), Refills(s) 0, Pharmacy: [facility]/pharmacy #6177 magnesium oxide, 400 mg = 1 [...] Sayda Kelley Within 1 to 2 days [facility] [address] [place] [address]- Business (1) Additional Instructions: neurologist you may also follow up with him Charles Nicole Within 1 to 2 days [address] [place] [address]- Business (1) Additional Instructions: Return to ED if symptoms worsen Patient Education Paresthesia, Ykpv-oy-Bzrw Restless Legs Syndrome Problem List/Past Medical History [...] Lymph Auto: 30.6 % (09/13/18 23:03:00 EDT) Galax Auto: 7.2 % (09/13/18 23:03:00 EDT) Eos Auto: 2.2 % (09/13/18 23:03:00 EDT) Basophil Auto: 0.6 % (09/13/18 23:03:00 EDT) Neutro Absolute: 5.9 E9/L (09/13/18 23:03:00 EDT) Lymph Absolute: 3 E9/L (09/13/18 23:03:00 EDT) Galax Absolute: 0.7 E9/L (09/13/18 23:03:00 EDT) Eos [...] Diagnostic Results No qualifying data available. Normal [facility] Comment on above: Result Comment: Elec [...] Document Reviewed: 01/29/2012 ExitCare? Patient Information ?2015 [employer]. This information is not intended to replace [...] ? Drawing. ? Crawling. ? Worming. ? [place]. ? Tingling. ? Pins and needles. ? [...] Document Reviewed: 08/06/2011 ExitCare? Patient Information ?2014 [employer]. This information is not intended to replace advice given to you by your health care provider. Make sure you discuss any questions you have with your health care provider. Normal [facility] ED Patient Summaryon 019 ED Patient Summary [address] [address] Patient Discharge Instructions Person Information Name: ARIADNA HALEY Age: 37 Years Arrival Date: 09/13/2018 10:16 PM Discharge Diagnosis: 1:Restless leg syndrome Primary Care Physician: Charles Nicole DO Provider Information Primary Provider: Génesis Lozoya DO Advanced Brand Strategist:None The exam and treatment you received in the Emergency Department were for an urgent problem and are not intended as complete care. It is important that you follow up with a doctor, nurse practitioner, or physician?s mechanic's assistant for ongoing care. If your symptoms [...] When: Sayda Kelley [facility], [address] [place] [address] Business (1) Within 1 to 2 days Comments: neurologist you may also follow up with him With: Address: When: Charles Nicole [address] [place] [address] Business (1) Within 1 to 2 days Comments: Return to ED if symptoms worsen In the event that this physician does not participate in your insurance network, please consult with your insurance company to find a nearby participating provider. Patient Education Materials: Paresthesia, Vnoo-kk-Hvwi; Restless Legs Syndrome A MESSAGE TO ALL PATIENTS REGARDING OPIOIDS PRESCRIPTION OPIOIDS: WHAT YOU NEED TO KNOW Prescription opioids can be used to help relieve qbxwloww-fp-wdehvy pain and are often prescribed following a [...] be struggling with addiction, tell your health vocational childcare teacher and ask for guidance or call [facility]?S National Helpline at 1-344-402-DEZW. j Source: [place] Department of Health and Human Services/Center for Disease Control & Prevention [facility] Medications Given: Medication Dose Route Sodium Chloride 0.9% intravenous solution 1000.00 mL Initial Volume 1000.00 mL/hr IV Piggyback Left Mid Forearm Medication Information: New Medications [facility]/pharmacy #[id number], [address], [place] [id number], [phone] gabapentin (gabapentin 100 mg Cap) 1 Capsules By Mouth every day for 7 Days. Refills: 0. magnesium oxide (magnesium oxide 400 mg Tab) 1 Tabs By Mouth every day for 7 Days. Refills: 0. [facility], [address] [place], [place] [id number], [phone] gabapentin (gabapentin 100 mg Cap) 1 Capsules By Mouth every day for 7 Days. Refills: 0. magnesium oxide (magnesium oxide 400 mg Tab) 1 Tabs By Mouth every day for 7 Days. Refills: 0. Medications to Continue with No Changes Other Medications metformin (metformin 500 mg ER Tab) 250 Milligram By Mouth 2 times a day. Comment: Pharmacy Information: Thank you for choosing [facility] Patient Education Materials: Paresthesia Paresthesia [...] Document Reviewed: 01/29/2012 ExitCare? Patient Information ?2015 [employer]. This information is not intended to replace [...] ? Drawing. ? Crawling. ? Worming. ? [place]. ? Tingling. ? Pins and needles. ? [...] Document Reviewed: 08/06/2011 ExitCare? Patient Information ?2015 [facility]. This information is not intended to replace advice given to you by your health care provider. Make sure you discuss any questions you have with your health care provider. TERA Dorantes NICOLE B , have received the following patient education materials/instruction s and have verbalized understanding: Patient Education Materials: Paresthesia, Mfwo-gg-Jmlm; Restless Legs Syndrome Follow-up Instructions: With: Address: [facility] [address] [place] [address] Business (1) Within 1 to 2 days Comments: neurologist you may also follow up with him With: Address: When: Charles Nicole [address] [place] [address] Business (1) Within 1 to 2 days Comments: Return to ED if symptoms worsen Prescriptions: [gabapentin (gabapentin 100 mg Cap)] [gabapentin (gabapentin 100 mg Cap)] [magnesium oxide (magnesium oxide 400 mg Tab)] [magnesium oxide (magnesium oxide 400 mg Tab)] Patient Signature ___ Clinician/Nurse Signature 09/14/18 00:21:38 Normal [facility] Hep Func Panelon 09-14-2018 Bilirubin.direct [Mass/Vol] UTC Abnormal 0.1-0.9 [facility] Comment on above: Result Comment: Resu lt verified by Discern Rule. Performed result UTC (Unable to Calculate) was sent as an Alpha code due the inability to calculate a valid numeric value. Performed By: #### 1 5947690, 6425707, 5424325, 3356248, 00179252, 3938751, 0496493, 9326405, 5050841, 11115174, 1244130 #### [facility] [address] [place] [address] Albumin [Mass/Vol] 1.1 g/dL Normal 1.1-2.2 [facility] Comment on above: Performed By: #### 1 8315888, 3835720, 0535130, 4153293, 87040423, 1105486, 1218905, 1402956, 1151089, 12183436, 3668979 #### [facility] [address] [place] [address] Albumin [Mass/Vol] 4.1 g/dL Normal 3.3-5.0 [facility] Comment on above: Performed By: #### 1 7434019, 6127901, 1367683, 7092480, 59497862, 8242957, 5385495, 6765957, 1523575, 83010415, 6375030 #### [facility] [address] [place] [address] ALP [Catalytic activity/Vol] 69 Int._Unit/L Normal 21-98 [facility] Comment on above: Performed By: #### 1 3811895, 4027082, 7074436, 7632626, 31278327, 3106548, 8842543, 2024938, 0619665, 52133584, 0130687 #### [facility] [address] [place] [address] ALT No additional P-5'-P [Catalytic activity/Vol] 27 Int._Unit/L Normal 6-46 [facility] Comment on above: Performed By: #### 1 7547824, 6413981, 2404762, 6950212, 67185880, 2487306, 6751165, 2166153, 4168986, 77329376, 1832030 #### [facility] [address] [place] [address] AST [Catalytic activity/Vol] 16 Int._Unit/L Normal 5-43 [facility] Comment on above: Performed By: #### 1 0557538, 9138687, 2628617, 9882059, 80500367, 5807284, 1874547, 0761772, 5987122, 77809940, 6030820 #### [facility] [address] [place] [address] Bilirubin [Mass/Vol] 0.5 mg/dL Normal 0.0-1.1 [facility] Comment on above: Performed By: #### 1 3434254, 1539929, 1233930, 9863284, 67193054, 9699260, 1555428, 9094548, 4893452, 07243460, 9951995 #### [facility] [address] [place] [address] Bilirubin.direct [Mass/Vol] mg/dL Normal 0.1-0.4 [facility] Comment on above: Performed By: #### 1 5941188, 4291991, 7271554, 6276120, 04557286, 5335669, 5479006, 8980911, 2819220, 66121785, 5290693 #### [facility] [address] [place] [address] Globulin (S) [Mass/Vol] 3.7 g/dL Normal 1.4-4.0 [facility] Comment on above: Performed By: #### 1 5051931, 0253640, 2291508, 9918237, 38170405, 6025475, 3185641, 1898814, 9412702, 98252002, 1307215 #### [facility] [address] [place] [address] Protein [Mass/Vol] 7.8 g/dL Normal 6.0-7.8 [facility] Comment on above: Performed By: #### 1 6416764, 7476688, 1094360, 7005492, 70623120, 5900014, 1369792, 3215851, 9115740, 05479545, 7525819 #### [facility] [address] [place] [address] Magnesiumon 09-14-2018 Magnesium [Mass/Vol] 1.9 mg/dL Normal 1.3-2.4 [facility] Comment on above: Performed By: #### 1 6540382, 0828711, 3602676, 6975857, 74581414, 6293147, 1266871, 9724884, 3190585, 32837511, 5342135 #### [facility] [address] [place] [address] Myoglobinon 09-14-2018 Myoglobin [Mass/Vol] 9 ng/mL Normal <=69 [facility] Comment on above: Performed By: #### 1 2281154, 4049271, 5868781, 0645119, 82389736, 1639470, 5310102, 2807991, 0767202, 04036460, 9260972 #### [facility] [address] [place] [address] PT & PTTon 09-14-2018 aPTT Coag (PPP) [Time] 34.5 second(s) Normal 25.1-36.5 [facility] Comment on above: Result Comment: Hepa rin therapeutic range (represented by Anti-Factor Xa activity of 0.2 - 0.4 U/mL) corresponds to PTT of 56.6 - 109.0 sec. Performed By: #### 1 4885394, 0133029, 7371285, 4805419, 55203556, 1256024, 8996255, 9586876, 9157153, 99008919, 5284456 #### [facility] [address] [place] [address] INR Coag (PPP) [Relative time] 1.0 {INR} [facility] Comment on above: Result Comment: INR results are specifically intended to assess patients stabilized on long-term Anticoagulation therapy suggested INR?s ?Less Intensive Anticoagulation? 2.0 ? 3.0 Conventional Range 3.0 ? 4.5 Performed By: #### 1 9066687, 5716757, 4642205, 2299281, 46601263, 6138181, 4245833, 7883221, 1765505, 06957360, 8208973 #### [facility] [address] [place] [address] PT Coag (PPP) [Time] 11.2 second(s) Normal 10.2-12.9 [facility] Comment on above: Performed By: #### 1 0903894, 1346664, 9839026, 4203692, 42532925, 2224422, 3267202, 3201163, 8629544, 87350770, 7953322 #### [facility] [address] [place] [address] Phosphoruson 09-14-2018 Phosphate [Mass/Vol] 3.8 mg/dL Normal 1.9-4.6 [facility] Comment on above: Performed By: #### 1 7544287, 7327929, 1960253, 9937300, 79443951, 1505874, 9585737, 1466449, 5227851, 74298066, 1613530 #### [facility] [address] [place] [address] Troponin 0 Hr.on 09-14-2018 Troponin I.cardiac [Mass/Vol] ng/mL Normal <=0.03 [facility] Comment on above: Result Comment: New Troponin Assay 10/05/13 [place] Cutoff value > or = 0.03 ng/mL in conjunction with clinical conditions of myocardial infarction. ([email or web address]/guidelines) Performed By: #### 1 5420278, 6896696, 8986417, 0196010, 47889575, 1064361, 4396315, 6844575, 7170986, 44618387, 0538123 #### [facility] [address] [place] [address] UA With Cult Reflexon 2018 Bacteria LM Ql (Urine sed) TRACE Normal Trace [facility] Comment on above: Performed By: #### 1 5110296, 7870598, 4363759, 7542900, 31695458, 5444905, 6856181, 7186551, 7750989, 13581545, 4388415 #### [facility] [address] [place] [address] Bilirubin Ql (U) Negative Normal Negative [facility] Comment on above: Performed By: #### 1 4024629, 5399476, 7280944, 7476566, 34641141, 7468726, 1213482, 4350370, 1088815, 78953572, 6381194 #### [facility] [address] [place] [address] Clarity (U) CLEAR Normal Clear [facility] Comment on above: Performed By: #### 1 2259671, 0408319, 6119475, 5755226, 74982274, 2507826, 7555978, 3646408, 9794212, 31056071, 0080428 #### [facility] [address] [place] [address] Color (U) YELLOW Normal Yellow [facility] Comment on above: Performed By: #### 1 9663981, 9747980, 7234081, 2812175, 91844887, 1759378, 4220837, 1455945, 1357725, 67436405, 5142280 #### [facility] [address] [place] [address] Epithelial cells.squamous LM.HPF (Urine sed) [#/Area] 0-2 Normal 0-2 [facility] Comment on above: Performed By: #### 1 7175780, 0663536, 3707120, 2888919, 17825679, 3242131, 2979768, 4073412, 8124136, 82500721, 5020665 #### [facility] [address] [place] [address] Glucose Test strip (U) [Mass/Vol] Negative Normal Negative [facility] Comment on above: Performed By: #### 1 6585466, 4948725, 6867269, 2156520, 93085859, 5541514, 2381590, 6226096, 1520635, 45879328, 2481035 #### [facility] [address] [place] [address] Hemoglobin Ql (U) Negative Normal Negative [facility] Comment on above: Performed By: #### 1 1829328, 0542620, 5329345, 1580047, 68100851, 8059614, 2352943, 0297855, 7249655, 51900698, 5747794 #### [facility] [address] [place] [address] Ketones (U) [Mass/Vol] Negative Normal Negative [facility] Comment on above: Performed By: #### 1 0538628, 6693523, 3746369, 6519932, 75410999, 9696606, 8429677, 7299938, 3743934, 20305007, 4780766 #### [facility] [address] [place] [address] [place].plasma/[place] .RBC (Bld) [Mass ratio] 0-3 Normal 0-3 [facility] Comment on above: Performed By: #### 1 3564784, 7177136, 8155604, 9642466, 49846157, 3891743, 5547156, 6128516, 8214350, 15529370, 0610465 #### [facility] [address] [place] [address] Mucus Ql (Urine sed) TRACE Normal [facility] Comment on above: Performed By: #### 1 0111285, 0461283, 2050478, 0881600, 14493805, 6847899, 4840317, 4735232, 4938998, 09516218, 7682007 #### [facility] [address] [place] [address] Nitrite Ql (U) Negative Normal Negative [facility] Comment on above: Performed By: #### 1 0643351, 2201512, 3824606, 5368672, 51243372, 8864839, 1043700, 1420424, 9450247, 59859457, 7692681 #### [facility] [address] [place] [address] pH (U) 6.0 [pH] 5.0-9.0 [facility] Comment on above: Performed By: #### 1 0983805, 7256322, 6862336, 8692074, 01778705, 7633131, 7770696, 4825158, 1124113, 70298562, 5952817 #### [facility] [address] [place] [address] Protein (U) [Mass/Vol] Negative Normal Negative [facility] Comment on above: Performed By: #### 1 2037654, 8836826, 5869064, 5345784, 50062375, 4758837, 8343230, 3961962, 3180589, 72430982, 7744863 #### [facility] [address] [place] [address] Specific gravity (U) [Rel density] 1.010 1.005-1.030 [facility] Comment on above: Performed By: #### 1 1736297, 0977402, 8196652, 0558967, 84230917, 0420083, 8726903, 8669985, 7564623, 08947446, 6740805 #### [facility] [address] [place] [address] UA Spec Desc Clean Catch Normal [facility] Comment on above: Performed By: #### 1 6592185, 0269222, 3230622, 6918948, 05391197, 2935771, 9026259, 1006526, 4037801, 78951102, 7334733 #### [facility] [address] [place] [address] Urobilinogen Qn (U) 0.2 {Carmella'U}/dL Normal 0.0-1.0 [facility] Comment on above: Performed By: #### 1 1834935, 9088068, 0038935, 5895708, 17957792, 4181881, 4341111, 6410662, 6331851, 90563567, 5675225 #### [facility] [address] [place] [address] WBC Auto Ql (U) Negative Normal Negative [facility] Comment on above: Performed By: #### 1 3480241, 8966436, 6850102, 1408667, 39830281, 8484445, 4052805, 5323450, 0003732, 11454872, 4198204 #### [facility] [address] [place] [address] WBC LM.HPF (Urine sed) [#/Area] 0-5 Normal 0-5 [facility] Comment on above: Performed By: #### 1 4567715, 5773290, 2461548, 8116218, 52774333, 5231785, 6577012, 2976838, 6220118, 74757133, 4651986 #### [facility] [address] [place] [address] XR Chest Single Viewon 09-14 XR Chest [...] M.D. Transcribed by: minoo Technologist: AP Normal [facility] XR FOOT LEFT (MIN 3 VIEWS)on 09-14-2018 XR FOOT LEFT (MIN 3 VIEWS) Radiology exam is complete. No Radiologist dictation. Please follow up with ordering provider. Final result Normal [facility] XR FOOT RIGHT (MIN 3 VIEWS)o n 09-14-2018 XR FOOT RIGHT (MIN 3 VIEWS) Radiology exam is complete. No Radiologist dictation. Please follow up with ordering provider. Final result Normal [facility] eGFRon 09-14-2018 GFR/1.73 sq M predicted among blacks MDRD (S/P/Bld) [Vol rate/Area] mL/min/{1.73_m2} Normal >=59 [facility] Comment on above: Order Comment: Order added by Discern Expert. Result Comment: eGFR is race adjusted. AA=. Performed By: #### 1 7450130, 6357278, 4520627, 0315060, 81971755, 3648219, 4325546, 2110279, 5207919, 87507739, 9795966 #### [facility] [address] [place] [address] GFR/1.73 sq M predicted among non-blacks MDRD (S/P/Bld) [Vol rate/Area] mL/min/{1.73_m2} Normal >=59 [facility] Comment on above: Order Comment: Order added by Discern Expert. Result Comment: Um Specialist anthony kidney disease could be indicated at eGFR's of less than 60 mL/min/1.73m2. Kidney failure is indicated at less than 15 mL/min/1.73m2. Performed By: #### 1 0646155, 4311130, 9121252, 8352349, 25342490, 9479682, 8970647, 6559150, 9274786, 22988723, 6621110 #### [facility] [address] [place] [address] Vital Signs Date Time Vital Sign Value Performing Clinician Facility 03-02-2025 17:29-0400 Diastolic blood pressure 67 mm[Hg] Gay Enciso [employer]INT [employer]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-C Work Phone: [facility] 03-02-2025 17:29-0400 Heart rate 84 /min Gayomer Johnmer [employer]INT B[employer]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-C Work Phone: [facility] 03-02-2025 17:29-0400 Respiratory rate 16 /min Gayomer Enciso PRINT B[employer]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-C Work Phone: [facility] 03-02-2025 17:29-0400 SaO2% (BldA) [Mass fraction] 97 % Gyaomer Enciso [employer]INT B[employer]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-C Work Phone: [facility] 03-02-2025 17:29-0400 Systolic blood pressure 117 mm[Hg] Gayomer Johnmer [employer]INT B[employer]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-C Work Phone: [facility] 03-02-2025 15:06-0400 Body height 170.18 cm Gaymoer Johnmer PRINT B[employer]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-C Work Phone: [facility] 03-02-2025 15:06-0400 Body temperature 98.4 [degF] Gay Enciso [employer]INT B[employer]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-C Work Phone: [facility] 03-02-2025 15:06-0400 Body weight 129.27 kg Gayomer Enciso [employer]INT B[employer]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-C Work Phone: [facility] 02-28-2025 13:34-0400 Body height 170.18 cm Gayomer Enciso [employer]INT B[employer]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-C Work Phone: [facility] 02-28-2025 13:34-0400 Body mass index (BMI) [Ratio] 43.8 kg/m2 Gay Enciso [employer]INT B[employer]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-C Work Phone: [facility] 02-28-2025 13:34-0400 Body weight 127 kg Gay Britt [employer]INT B[employer]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-C Work Phone: [facility] 02-28-2025 13:34-0400 Diastolic blood pressure 70 mm[Hg] Gay Britt [employer]INT B[employer]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-C Work Phone: [facility] 02-28-2025 13:34-0400 Heart rate 99 /min Gay Britt [employer]INT B[employer]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-C Work Phone: [facility] 02-28-2025 13:34-0400 Respiratory rate 18 /min Gay Britt [employer]INT B[employer]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-C Work Phone: [facility] 02-28-2025 13:34-0400 SaO2% (BldA) [Mass fraction] 95 % Gay Britt PRINT BIND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-C Work Phone: [facility] 02-28-2025 13:34-0400 Systolic blood pressure 118 mm[Hg] Gay Britt [employer]INT BIND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-C Work Phone: [facility] 02-28-2025 09:25-0400 Body height 170.2 cm Terence Pacheco MD Work Phone: [facility] 02-28-2025 09:25-0400 Body mass index (BMI) [Ratio] 45.58 kg/m2 Terence Pacheco MD Work Phone: [facility] 02-28-2025 09:25-0400 Body weight 132 kg Terence Pacheco MD Work Phone: [facility] 02-28-2025 09:25-0400 Diastolic blood pressure 78 mm[Hg] Terence Pacheco MD Work Phone: [facility] 02-28-2025 09:25-0400 Systolic blood pressure 120 mm[Hg] Terence Pacheco MD Work Phone: [facility] 02-14-2025 09:42-0400 Body height 170.18 cm Gay Enciso PRINT BIND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-C Work Phone: [facility] 02-14-2025 09:42-0400 Diastolic blood pressure 76 mm[Hg] Gay Britt [employer]INT B[employer]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-C Work Phone: [facility] 02-14-2025 09:42-0400 Heart rate 65 /min Gay Britt [employer] B[employer]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-C Work Phone: [facility] 02-14-2025 09:42-0400 SaO2% (BldA) [Mass fraction] 97 % Gay Britt [employer] B[employer]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-C Work Phone: [facility] 02-14-2025 09:42-0400 Systolic blood pressure 118 mm[Hg] Gay Britt [employer]INT B[employer]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-C Work Phone: [facility] 01-31-2025 11:40-0400 Diastolic blood pressure 80 mm[Hg] Gay Britt [employer]INT B[employer]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-C Work Phone: [facility] 01-31-2025 11:40-0400 Heart rate 86 /min Gay Britt [employer]INT B[employer]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-C Work Phone: [facility] 01-31-2025 11:40-0400 Respiratory rate 18 /min Gay Britt [employer] B[employer]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-C Work Phone: [facility] 01-31-2025 11:40-0400 SaO2% (BldA) [Mass fraction] 94 % Gya Britt PRINT B[employer]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-C Work Phone: [facility] 01-31-2025 11:40-0400 Systolic blood pressure 116 mm[Hg] Gay Britt [employer]INT B[employer]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-C Work Phone: [facility] 01-31-2025 10:11-0400 Body height 170.18 cm Gay Britt [employer]INT B[employer]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-C Work Phone: [facility] 01-31-2025 10:11-0400 Body weight 127 kg Gay Britt [employer]INT B[employer]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-C Work Phone: [facility] 01-24-2025 14:20-0400 Diastolic blood pressure 68 mm[Hg] Chair Gabbi Work Phone: [facility] 01-24-2025 14:20-0400 Heart rate 82 /min Chair Gabbi Work Phone: [facility] 01-24-2025 14:20-0400 Respiratory rate 18 /min Chair Whitefield Work Phone: [facility] 01-24-2025 14:20-0400 SaO2% (BldA) [Mass fraction] 98 % Chair Whitefield Work Phone: [facility] 01-24-2025 14:20-0400 Systolic blood pressure 111 mm[Hg] Chair Gabbi Work Phone: [facility] 01-24-2025 10:42-0400 Body temperature 97.81 [degF] Chair Whitefield Work Phone: [facility] 01-17-2025 10:38-0400 Body height 170.18 cm Gay Enciso PRINT B[employer]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-C Work Phone: [facility] 01-17-2025 10:38-0400 Diastolic blood pressure 62 mm[Hg] Gay Enciso PRINT B[employer]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-C Work Phone: [facility] 01-17-2025 10:38-0400 Heart rate 92 /min Gay Johnmer [employer] B[employer]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-C Work Phone: [facility] 01-17-2025 10:38-0400 SaO2% (BldA) [Mass fraction] 96 % Gay Johnmer [employer] B[employer]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-C Work Phone: [facility] 01-17-2025 10:38-0400 Systolic blood pressure 108 mm[Hg] Gay Enciso [employer]INT B[employer]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-C Work Phone: [facility] 01-11-2025 13:51-0400 Body temperature 98.29 [degF] Chair Gabbi Work Phone: [facility] 01-11-2025 13:51-0400 Diastolic blood pressure 91 mm[Hg] Chair Gabbi Work Phone: [facility] 01-11-2025 13:51-0400 Heart rate 76 /min Chair Gabbi Work Phone: [facility] 01-11-2025 13:51-0400 Respiratory rate 20 /min Chair Gabbi Work Phone: [facility] 01-11-2025 13:51-0400 SaO2% (BldA) [Mass fraction] 98 % Chair Whitefield Work Phone: [facility] 01-11-2025 13:51-0400 Systolic blood pressure 146 mm[Hg] Chair Whitefield Work Phone: [facility] 12-14-2024 14:10-0400 Diastolic blood pressure 71 mm[Hg] Chair Gabbi Work Phone: [facility] 12-14-2024 14:10-0400 Heart rate 83 /min Chair Gabbi Work Phone: [facility] 12-14-2024 14:10-0400 Respiratory rate 18 /min Chair Whitefield Work Phone: [facility] 12-14-2024 14:10-0400 SaO2% (BldA) [Mass fraction] 96 % Chair Whitefield Work Phone: [facility] 12-14-2024 14:10-0400 Systolic blood pressure 128 mm[Hg] Chair Whitefield Work Phone: [facility] 12-12-2024 10:45-0400 Body height 170.18 cm Gay Enciso PRINT B[employer]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-C Work Phone: [facility] 12-12-2024 10:45-0400 Body mass index (BMI) [Ratio] 44.8 kg/m2 Gay Enciso [employer]INT B[employer]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-C Work Phone: [facility] 12-12-2024 10:45-0400 Body weight 129.72 kg Gay Enciso [employer]INT B[employer]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-C Work Phone: [facility] 12-12-2024 10:45-0400 Diastolic blood pressure 71 mm[Hg] Gay Enciso [employer]INT B[employer]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-C Work Phone: [facility] 12-12-2024 10:45-0400 Heart rate 63 /min Gayomer Johnmer PRINT B[employer]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-C Work Phone: [facility] 12-12-2024 10:45-0400 Systolic blood pressure 109 mm[Hg] Gay Britt [employer] B[employer]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-C Work Phone: [facility] 11-30-2024 09:08-0400 Diastolic blood pressure 84 mm[Hg] Gay Britt [employer]INT B[employer]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-C Work Phone: [facility] 11-30-2024 09:08-0400 Heart rate 64 /min Gay Britt [employer] B[employer]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-C Work Phone: [facility] 11-30-2024 09:08-0400 SaO2% (BldA) [Mass fraction] 98 % Gay Britt [employer]INT B[employer]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-C Work Phone: [facility] 11-30-2024 09:08-0400 Systolic blood pressure 120 mm[Hg] Gay Britt [employer]INT B[employer]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-C Work Phone: [facility] 11-29-2024 14:46-0400 Body temperature 97.81 [degF] Chair Whitefield Work Phone: [facility] 11-29-2024 14:46-0400 Diastolic blood pressure 73 mm[Hg] Chair Whitefield Work Phone: [facility] 11-29-2024 14:46-0400 Heart rate 77 /min Chair Whitefield Work Phone: [facility] 11-29-2024 14:46-0400 Respiratory rate 18 /min Chair Whitefield Work Phone: [facility] 11-29-2024 14:46-0400 SaO2% (BldA) [Mass fraction] 98 % Chair Whitefield Work Phone: [facility] Comment on above: 11-29-2024 14:46-0400 Systolic blood pressure 122 mm[Hg] Chair Whitefield Work Phone: [facility] 11-29-2024 09:13-0400 Body height 170.2 cm Vaibhav Carvalho SENIOR NURSE MANAGER.RADIOLOGY SPECIAL PROCEDURE TECH Work Phone: [facility] 11-29-2024 09:13-0400 Body mass index (BMI) [Ratio] 45.12 kg/m2 Vaibhav Deven SENIOR NURSE MANAGER.RADIOLOGY SPECIAL PROCEDURE TECH Work Phone: [facility] 11-29-2024 09:13-0400 Body temperature 97.5 [degF] Vaibhav Deven SENIOR NURSE MANAGER.RADIOLOGY SPECIAL PROCEDURE TECH Work Phone: [facility] 11-29-2024 09:13-0400 Body weight 130.7 kg Vaibhav Carvalho SENIOR NURSE MANAGER.RADIOLOGY SPECIAL PROCEDURE TECH Work Phone: [facility] 11-29-2024 09:13-0400 Diastolic blood pressure 57 mm[Hg] Vaibhav Deven SENIOR NURSE MANAGER.RADIOLOGY SPECIAL PROCEDURE TECH Work Phone: [facility] 11-29-2024 09:13-0400 Heart rate 88 /min Vaibhav Hernandezod SENIOR NURSE MANAGER.RADIOLOGY SPECIAL PROCEDURE TECH Work Phone: [facility] 11-29-2024 09:13-0400 Respiratory rate 18 /min Vaibhav Deven SENIOR NURSE MANAGER.RADIOLOGY SPECIAL PROCEDURE TECH Work Phone: [facility] 11-29-2024 09:13-0400 SaO2% (BldA) [Mass fraction] 98 % Vaibhav Carvalho SENIOR NURSE MANAGER.RADIOLOGY SPECIAL PROCEDURE TECH Work Phone: [facility] 11-29-2024 09:13-0400 Systolic blood pressure 113 mm[Hg] Vaibhav Deven SENIOR NURSE MANAGER.RADIOLOGY SPECIAL PROCEDURE TECH Work Phone: [facility] 11-16-2024 13:47-0400 Body temperature 98.01 [degF] Chair Gabbi Work Phone: [facility] 11-16-2024 13:47-0400 Diastolic blood pressure 70 mm[Hg] Chair Whitefield Work Phone: [facility] 11-16-2024 13:47-0400 Heart rate 89 /min Chair Whitefield Work Phone: [facility] 11-16-2024 13:47-0400 Respiratory rate 20 /min Chair Gabbi Work Phone: [facility] 11-16-2024 13:47-0400 SaO2% (BldA) [Mass fraction] 97 % Chair Whitefield Work Phone: [facility] 11-16-2024 13:47-0400 Systolic blood pressure 101 mm[Hg] Chair Whitefield Work Phone: [facility] 11-13-2024 11:17-0400 Body height 170.18 cm Gay Johnmer PRINT BIND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-C Work Phone: [facility] 11-13-2024 11:17-0400 Body mass index (BMI) [Ratio] 44.1 kg/m2 Gay Johnmer PRINT B[employer]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-C Work Phone: [facility] 11-13-2024 11:17-0400 Body weight 127.91 kg Gay Johnmer PRINT BIND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-C Work Phone: [facility] 11-13-2024 11:17-0400 Diastolic blood pressure 78 mm[Hg] Gayomer Johnmer PRINT BIND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-C Work Phone: [facility] 11-13-2024 11:17-0400 Heart rate 96 /min Gay Johnmer PRINT BIND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-C Work Phone: [facility] 11-13-2024 11:17-0400 Systolic blood pressure 104 mm[Hg] Gayomer Johnmer PRINT BIND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-C Work Phone: [facility] 10-31-2024 14:46-0400 Diastolic blood pressure 76 mm[Hg] Chair Whitefield Work Phone: [facility] 10-31-2024 14:46-0400 Heart rate 68 /min Chair Whitefield Work Phone: [facility] 10-31-2024 14:46-0400 Respiratory rate 20 /min Chair Whitefield Work Phone: [facility] 10-31-2024 14:46-0400 SaO2% (BldA) [Mass fraction] 94 % Chair Whitefield Work Phone: [facility] Comment on above: RA 10-31-2024 14:46-0400 Systolic blood pressure 133 mm[Hg] Chair Whitefield Work Phone: [facility] 10-31-2024 09:19-0400 Body temperature 97.81 [degF] Chair Whitefield Work Phone: [facility] 2024 14:16-0400 Body mass index (BMI) [Ratio] 44.01 kg/m2 Chair Whitefield Work Phone: [facility] 2024 14:16-0400 Body temperature 97.59 [degF] Chair Whitefield Work Phone: [facility] 2024 14:16-0400 Body weight 127.5 kg Chair Whitefield Work Phone: [facility] 2024 14:16-0400 Diastolic blood pressure 78 mm[Hg] Chair Whitefield Work Phone: [facility] 2024 14:16-0400 Heart rate 85 /min Chair Whitefield Work Phone: [facility] 2024 14:16-0400 Respiratory rate 16 /min Chair Gabbi Work Phone: [facility] 2024 14:16-0400 SaO2% (BldA) [Mass fraction] 96 % Chair Gabbi Work Phone: [facility] 2024 14:16-0400 Systolic blood pressure 113 mm[Hg] Chair Whitefield Work Phone: [facility] 10-02-2024 14:15-0400 Body temperature 98.29 [degF] Chair Gabbi Work Phone: [facility] 10-02-2024 14:15-0400 Diastolic blood pressure 80 mm[Hg] Chair Whitefield Work Phone: [facility] 10-02-2024 14:15-0400 Heart rate 76 /min Chair Whitefield Work Phone: [facility] 10-02-2024 14:15-0400 Respiratory rate 16 /min Chair Whitefield Work Phone: [facility] 10-02-2024 14:15-0400 SaO2% (BldA) [Mass fraction] 97 % Chair Gabbi Work Phone: [facility] 10-02-2024 14:15-0400 Systolic blood pressure 129 mm[Hg] Chair Gabbi Work Phone: [facility] 09-18-2024 13:20-0400 Body temperature 97.59 [degF] Chair Whitefield Work Phone: [facility] 09-18-2024 13:20-0400 Diastolic blood pressure 84 mm[Hg] Chair Whitefield Work Phone: [facility] 09-18-2024 13:20-0400 Heart rate 107 /min Chair Whitefield Work Phone: [facility] 09-18-2024 13:20-0400 Respiratory rate 18 /min Chair Whitefield Work Phone: [facility] 09-18-2024 13:20-0400 SaO2% (BldA) [Mass fraction] 97 % Chair Whitefield Work Phone: [facility] 09-18-2024 13:20-0400 Systolic blood pressure 115 mm[Hg] Chair Gabbi Work Phone: [facility] 09-06-2024 16:17-0400 Heart rate 90 /min Gay Enciso PRINT BIND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-C Work Phone: [facility] 09-06-2024 16:17-0400 SaO2% (BldA) [Mass fraction] 97 % Gay Enciso PRINT BIND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-C Work Phone: [facility] 09-06-2024 13:54-0400 Diastolic blood pressure 69 mm[Hg] Chair Whitefield Work Phone: [facility] 09-06-2024 13:54-0400 Heart rate 90 /min Chair Gabbi Work Phone: [facility] 09-06-2024 13:54-0400 Respiratory rate 18 /min Chair Gabbi Work Phone: [facility] 09-06-2024 13:54-0400 SaO2% (BldA) [Mass fraction] 97 % Chair Gabbi Work Phone: [facility] 09-06-2024 13:54-0400 Systolic blood pressure 110 mm[Hg] Chair Gabbi Work Phone: [facility] 09-06-2024 08:43-0400 Body height 170.2 cm Vaibhav Deven SENIOR NURSE MANAGER.RADIOLOGY SPECIAL PROCEDURE TECH Work Phone: [facility] 09-06-2024 08:43-0400 Body mass index (BMI) [Ratio] 45.5 kg/m2 Vaibhav Deven SENIOR NURSE MANAGER.RADIOLOGY SPECIAL PROCEDURE TECH Work Phone: [facility] 09-06-2024 08:43-0400 Body temperature 97.5 [degF] Vaibhav Deven SENIOR NURSE MANAGER.RADIOLOGY SPECIAL PROCEDURE TECH Work Phone: [facility] 09-06-2024 08:43-0400 Body weight 131.8 kg Vaibhav Deven SENIOR NURSE MANAGER.RADIOLOGY SPECIAL PROCEDURE TECH Work Phone: [facility] 09-06-2024 08:43-0400 Diastolic blood pressure 64 mm[Hg] Vaibhav Deven SENIOR NURSE MANAGER.RADIOLOGY SPECIAL PROCEDURE TECH Work Phone: [facility] 09-06-2024 08:43-0400 Heart rate 77 /min Vaibhav Deven SENIOR NURSE MANAGER.RADIOLOGY SPECIAL PROCEDURE TECH Work Phone: [facility] 09-06-2024 08:43-0400 Respiratory rate 18 /min Vaibhav Deven SENIOR NURSE MANAGER.RADIOLOGY SPECIAL PROCEDURE TECH Work Phone: [facility] 09-06-2024 08:43-0400 SaO2% (BldA) [Mass fraction] 97 % Vaibhav Carvalho SENIOR NURSE MANAGER.RADIOLOGY SPECIAL PROCEDURE TECH Work Phone: [facility] 09-06-2024 08:43-0400 Systolic blood pressure 116 mm[Hg] Vaibhav Carvalho SENIOR NURSE MANAGER.RADIOLOGY SPECIAL PROCEDURE TECH Work Phone: [facility] 09-04-2024 15:04-0400 Body height 170.2 cm Gordo Barfield MD Work Phone: [facility] 09-04-2024 15:04-0400 Body mass index (BMI) [Ratio] 44.32 kg/m2 Gordo Barfield MD Work Phone: [facility] 09-04-2024 15:04-0400 Body weight 128.37 kg Gordo Barfield MD Work Phone: [facility] 09-04-2024 15:04-0400 Diastolic blood pressure 73 mm[Hg] Gordo Barfield MD Work Phone: [facility] 09-04-2024 15:04-0400 Heart rate 101 /min Gordo Barfield MD Work Phone: [facility] 09-04-2024 15:04-0400 Systolic blood pressure 112 mm[Hg] Gordo Barfield MD Work Phone: [facility] 08-08-2024 14:36-0400 Diastolic blood pressure 87 mm[Hg] Chair Whitefield Work Phone: [facility] 08-08-2024 14:36-0400 Heart rate 83 /min Chair Whitefield Work Phone: [facility] 08-08-2024 14:36-0400 Respiratory rate 18 /min Chair Whitefield Work Phone: [facility] 08-08-2024 14:36-0400 SaO2% (BldA) [Mass fraction] 97 % Chair Whitefield Work Phone: [facility] 08-08-2024 14:36-0400 Systolic blood pressure 129 mm[Hg] Chair Whitefield Work Phone: [facility] 08-08-2024 10:54-0400 Body temperature 98.01 [degF] Chair Reese Work Phone: [facility] 07-31-2024 16:05-0400 Diastolic blood pressure 70 mm[Hg] Gay Britt PRINT BIND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-C Work Phone: [facility] 07-31-2024 16:05-0400 Heart rate 108 /min Gay Britt PRINT BIND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-C Work Phone: [facility] 07-31-2024 16:05-0400 SaO2% (BldA) [Mass fraction] 96 % Gay Britt PRINT BIND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-C Work Phone: [facility] 07-31-2024 16:05-0400 Systolic blood pressure 104 mm[Hg] Gay Britt PRINT BIND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-C Work Phone: [facility] 07-26-2024 15:06-0500 Body height 170.2 cm Lois Holm MD Work Phone: [facility] 07-26-2024 15:06-0500 Body mass index (BMI) [Ratio] 44.92 kg/m2 Lois Holm MD Work Phone: [facility] 07-26-2024 15:06-0500 Body weight 130.09 kg Lois Holm MD Work Phone: [facility] 07-26-2024 15:06-0500 Diastolic blood pressure 60 mm[Hg] Lois Holm MD Work Phone: [facility] 07-26-2024 15:06-0500 Heart rate 84 /min Lois Holm MD Work Phone: [facility] 07-26-2024 15:06-0500 Systolic blood pressure 100 mm[Hg] Lois Holm MD Work Phone: [facility] 07-19-2024 11:27-0500 Diastolic blood pressure 90 mm[Hg] Gay Britt PRINT BIND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-C Work Phone: [facility] 07-19-2024 11:27-0500 Heart rate 78 /min Gay Enciso PRINT BIND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-C Work Phone: [facility] 07-19-2024 11:27-0500 Respiratory rate 16 /min Gay Enciso PRINT BIND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-C Work Phone: [facility] 07-19-2024 11:27-0500 SaO2% (BldA) [Mass fraction] 96 % Gay Enciso PRINT BIND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-C Work Phone: [facility] 07-19-2024 11:27-0500 Systolic blood pressure 126 mm[Hg] Gay Enciso PRINT BIND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-C Work Phone: [facility] 07-19-2024 09:54-0500 Body height 170.18 cm Gay Enciso PRINT BIND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-C Work Phone: [facility] 07-19-2024 09:54-0500 Body weight 127 kg Gay Enciso PRINT BIND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-C Work Phone: [facility] 07-12-2024 14:16-0500 Body temperature 96.91 [degF] Marky Barnes PA-C Work Phone: [facility] 07-11-2024 14:30-0500 Body temperature 97.39 [degF] Chair Whitefield Work Phone: [facility] 07-11-2024 14:30-0500 Diastolic blood pressure 80 mm[Hg] Chair Gabbi Work Phone: [facility] 07-11-2024 14:30-0500 Heart rate 69 /min Chair Whitefield Work Phone: [facility] 07-11-2024 14:30-0500 Respiratory rate 18 /min Chair Gabbi Work Phone: [facility] 07-11-2024 14:30-0500 SaO2% (BldA) [Mass fraction] 98 % Chair Whitefield Work Phone: [facility] 07-11-2024 14:30-0500 Systolic blood pressure 119 mm[Hg] Chair Gabbi Work Phone: [facility] 07-10-2024 15:25-0500 Diastolic blood pressure 70 mm[Hg] [facility] 07-10-2024 15:25-0500 Heart rate 106 /min [facility] 07-10-2024 15:25-0500 SaO2% (BldA) [Mass fraction] 97 % [facility] 07-10-2024 15:25-0500 Systolic blood pressure 102 mm[Hg] [facility] 06-13-2024 14:55-0500 Diastolic blood pressure 56 mm[Hg] Chair Whitefield Work Phone: [facility] 06-13-2024 14:55-0500 Heart rate 70 /min Chair Whitefield Work Phone: [facility] 06-13-2024 14:55-0500 Respiratory rate 18 /min Chair Gabbi Work Phone: [facility] 06-13-2024 14:55-0500 SaO2% (BldA) [Mass fraction] 98 % Chair Whitefield Work Phone: [facility] 06-13-2024 14:55-0500 Systolic blood pressure 93 mm[Hg] Chair Gabbi Work Phone: [facility] 06-13-2024 08:55-0500 Body mass index (BMI) [Ratio] 45.08 kg/m2 Vaibhav Carvalho APRN.RADIOLOGY SPECIAL PROCEDURE TECH Work Phone: [facility] 06-13-2024 08:55-0500 Body temperature 97.59 [degF] Vaibhav Carvalho SENIOR NURSE MANAGER.RADIOLOGY SPECIAL PROCEDURE TECH Work Phone: [facility] 06-13-2024 08:55-0500 Body weight 130.6 kg Vaibhav Carvalho APRN.RADIOLOGY SPECIAL PROCEDURE TECH Work Phone: [facility] 06-13-2024 08:55-0500 Diastolic blood pressure 71 mm[Hg] Vaibhav Carvalho APRN.RADIOLOGY SPECIAL PROCEDURE TECH Work Phone: [facility] 06-13-2024 08:55-0500 Heart rate 79 /min Vaibhav Deven SENIOR NURSE MANAGER.RADIOLOGY SPECIAL PROCEDURE TECH Work Phone: [facility] 06-13-2024 08:55-0500 Respiratory rate 16 /min Vaibhav Deven SENIOR NURSE MANAGER.RADIOLOGY SPECIAL PROCEDURE TECH Work Phone: [facility] 06-13-2024 08:55-0500 SaO2% (BldA) [Mass fraction] 98 % Vaibhav Deven SENIOR NURSE MANAGER.RADIOLOGY SPECIAL PROCEDURE TECH Work Phone: [facility] 06-13-2024 08:55-0500 Systolic blood pressure 106 mm[Hg] Vaibhav Deven SENIOR NURSE MANAGER.RADIOLOGY SPECIAL PROCEDURE TECH Work Phone: [facility] 06-06-2024 11:37-0500 Body mass index (BMI) [Ratio] 45.08 kg/m2 Oly WARREN Work Phone: [facility] 06-06-2024 11:37-0500 Body weight 130.54 kg Oly Plascencia PA Work Phone: [facility] 06-06-2024 11:37-0500 Diastolic blood pressure 70 mm[Hg] Oly Plascencia PA Work Phone: [facility] 06-06-2024 11:37-0500 Systolic blood pressure 120 mm[Hg] Oly Plascencia PA Work Phone: [facility] 05-19-2024 15:02-0500 Body temperature 97.3 [degF] Chair Gabbi Work Phone: [facility] 05-19-2024 15:02-0500 Diastolic blood pressure 63 mm[Hg] Chair Whitefield Work Phone: [facility] 05-19-2024 15:02-0500 Heart rate 73 /min Chair Whitefield Work Phone: [facility] 05-19-2024 15:02-0500 Respiratory rate 20 /min Chair Gabbi Work Phone: [facility] 05-19-2024 15:02-0500 SaO2% (BldA) [Mass fraction] 98 % Chair Whitefield Work Phone: [facility] Comment on above: RA 05-19-2024 15:02-0500 Systolic blood pressure 114 mm[Hg] Chair Whitefield Work Phone: [facility] 04-26-2024 09:31-0500 Body temperature 97.59 [degF] Ma Sand Work Phone: [facility] 04-26-2024 09:31-0500 Diastolic blood pressure 78 mm[Hg] Ma Sand Work Phone: [facility] Comment on above: Manual 04-26-2024 09:31-0500 Heart rate 66 /min Ma Sand Work Phone: [facility] 04-26-2024 09:31-0500 Respiratory rate 16 /min Ma Sand Work Phone: [facility] 04-26-2024 09:31-0500 SaO2% (BldA) [Mass fraction] 99 % Ma Sand Work Phone: [facility] 04-26-2024 09:31-0500 Systolic blood pressure 122 mm[Hg] Ma Sand Work Phone: [facility] Comment on above: Manual 04-10-2024 10:12-0500 Body height 170.2 cm Gordo Barfield MD Work Phone: [facility] 04-10-2024 10:12-0500 Body mass index (BMI) [Ratio] 44.95 kg/m2 Gordo Barfield MD Work Phone: [facility] 04-10-2024 10:12-0500 Body weight 130.18 kg Gordo Barfield MD Work Phone: [facility] 04-10-2024 10:12-0500 Diastolic blood pressure 70 mm[Hg] Gordo Barfield MD Work Phone: [facility] 04-10-2024 10:12-0500 Systolic blood pressure 110 mm[Hg] Gordo Barfield MD Work Phone: [facility] 04-06-2024 10:00-0500 Body height 170.2 cm Hayden Arciniega MD Work Phone: [facility] 04-06-2024 10:00-0500 Body mass index (BMI) [Ratio] 43.07 kg/m2 Hayden Arciniega MD Work Phone: [facility] 04-06-2024 10:00-0500 Body temperature 97 [degF] Hayden Arciniega MD Work Phone: [facility] 04-06-2024 10:00-0500 Body weight 124.74 kg Hayden Arciniega MD Work Phone: [facility] 04-06-2024 10:00-0500 Diastolic blood pressure 80 mm[Hg] Hayden Arciniega MD Work Phone: [facility] 04-06-2024 10:00-0500 Heart rate 86 /min Hayden Arciniega MD Work Phone: [facility] 04-06-2024 10:00-0500 SaO2% (BldA) [Mass fraction] 97 % Hayden Arciniega MD Work Phone: [facility] 04-06-2024 10:00-0500 Systolic blood pressure 136 mm[Hg] Hayden Arciniega MD Work Phone: [facility] 04-02-2024 13:27-0500 Body mass index (BMI) [Ratio] 45.42 kg/m2 Marky Mike DO Work Phone: [facility] 04-02-2024 13:27-0500 Body temperature 98.71 [degF] Marky Mike DO Work Phone: [facility] 04-02-2024 13:27-0500 Body weight 131.54 kg Marky Mike DO Work Phone: [facility] 04-02-2024 13:27-0500 Diastolic blood pressure 90 mm[Hg] Marky Mike DO Work Phone: [facility] 04-02-2024 13:27-0500 Heart rate 78 /min Marky Mike DO Work Phone: [facility] 04-02-2024 13:27-0500 SaO2% (BldA) [Mass fraction] 99 % Marky Mike DO Work Phone: [facility] 04-02-2024 13:27-0500 Systolic blood pressure 132 mm[Hg] Marky Mike DO Work Phone: [facility] 03-23-2024 14:35-0400 Body mass index (BMI) [Ratio] 44.17 kg/m2 Oly Temo PA Work Phone: [facility] 03-23-2024 14:35-0400 Body weight 127.91 kg Oly Plano PA Work Phone: [facility] 03-23-2024 14:35-0400 Diastolic blood pressure 76 mm[Hg] Oly Temo PA Work Phone: [facility] 03-23-2024 14:35-0400 Systolic blood pressure 122 mm[Hg] Oly Temo PA Work Phone: [facility] 03-23-2024 10:11-0400 Body height 170.2 cm Ma Sand Work Phone: [facility] 03-23-2024 10:11-0400 Body mass index (BMI) [Ratio] 43.06 kg/m2 Ma Sand Work Phone: [facility] 03-23-2024 10:11-0400 Body temperature 97.59 [degF] Ma Sand Work Phone: [facility] 03-23-2024 10:11-0400 Body weight 124.74 kg Ma Sand Work Phone: [facility] 03-23-2024 10:11-0400 Diastolic blood pressure 85 mm[Hg] Ma Sand Work Phone: [facility] 03-23-2024 10:11-0400 Heart rate 71 /min Ma Sand Work Phone: [facility] 03-23-2024 10:11-0400 Respiratory rate 16 /min Ma Sand Work Phone: [facility] 03-23-2024 10:11-0400 SaO2% (BldA) [Mass fraction] 94 % Ma Sand Work Phone: [facility] 03-23-2024 10:11-0400 Systolic blood pressure 135 mm[Hg] Ma Sand Work Phone: [facility] 03-16-2024 11:24-0400 Body mass index (BMI) [Ratio] 43.67 kg/m2 Luan Skip DO Work Phone: [facility] 03-16-2024 11:24-040 Body weight 126.46 kg Luan Skip DO Work Phone: [facility] 03-16-2024 11:24-0400 Diastolic blood pressure 70 mm[Hg] Luan Skip DO Work Phone: [facility] 03-16-2024 11:24-0400 Systolic blood pressure 120 mm[Hg] Luan Skip DO Work Phone: [facility] 03-16-2024 09:20-0400 Body height 170.18 cm [employer]INT [employer]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-C Gay Enciso Work Phone: [facility] 03-16-2024 09:20-0400 Body mass index (BMI) [Ratio] 43 kg/m2 [employer] B[employer]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-C Gay Johnmer Work Phone: [facility] 03-16-2024 09:20-0400 Body weight 124.73 kg [employer]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-C Gay Johnmer Work Phone: [facility] 02-21-2024 11:04-0400 Body temperature 97.2 [degF] Ma Sand Work Phone: [facility] 02-21-2024 11:04-0400 Diastolic blood pressure 68 mm[Hg] Ma Sand Work Phone: [facility] Comment on above: manual 02-21-2024 11:04-0400 Heart rate 95 /min Ma Sand Work Phone: [facility] 02-21-2024 11:04-0400 Respiratory rate 16 /min Ma Sand Work Phone: [facility] 02-21-2024 11:04-0400 SaO2% (BldA) [Mass fraction] 98 % Ma Sand Work Phone: [facility] 02-21-2024 11:04-0400 Systolic blood pressure 102 mm[Hg] Ma Sand Work Phone: [facility] Comment on above: manual 02-16-2024 09:23-0400 Diastolic blood pressure 72 mm[Hg] [employer] B[employer]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-C Gay Britt Work Phone: [facility] 02-16-2024 09:23-0400 Heart rate 70 /min [employer] B[employer]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-C Gay Britt Work Phone: [facility] 02-16-2024 09:23-0400 Respiratory rate 16 /min [employer] B[employer]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-C Gay Britt Work Phone: [facility] 02-16-2024 09:23-0400 SaO2% (BldA) [Mass fraction] 96 % [employer] B[employer]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-C Gay Britt Work Phone: [facility] 02-16-2024 09:23-0400 Systolic blood pressure 126 mm[Hg] PR[employer] B[employer]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-C Gay Britt Work Phone: [facility] 02-16-2024 07:27-0400 Body height 170.18 cm PRINT B[employer]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-C Gay Britt Work Phone: [facility] 02-16-2024 07:27-0400 Body weight 122.46 kg [employer] B[employer]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-C Gay Britt Work Phone: [facility] 01-28-2024 11:31-0400 Body weight 126.6 kg [facility] 01-28-2024 11:31-0400 Diastolic blood pressure 80 mm[Hg] [facility] 01-28-2024 11:31-0400 Heart rate 69 /min [facility] 01-28-2024 11:31-0400 SaO2% (BldA) [Mass fraction] 98 % [facility] 01-28-2024 11:31-0400 Systolic blood pressure 120 mm[Hg] [facility] 01-25-2024 11:30-0400 Body temperature 97.39 [degF] Ma Sand Work Phone: [facility] 01-25-2024 11:30-0400 Diastolic blood pressure 67 mm[Hg] Ma Sand Work Phone: [facility] 01-25-2024 11:30-0400 Heart rate 68 /min Ma Sand Work Phone: [facility] 01-25-2024 11:30-0400 Respiratory rate 16 /min Ma Sand Work Phone: [facility] 01-25-2024 11:30-0400 SaO2% (BldA) [Mass fraction] 99 % Ma Sand Work Phone: [facility] 01-25-2024 11:30-0400 Systolic blood pressure 92 mm[Hg] Ma Sand Work Phone: [facility] 12-27-2023 11:16-0400 Diastolic blood pressure 68 mm[Hg] Neda Liz PA-C Work Phone: [facility] 12-27-2023 11:16-0400 Systolic blood pressure 98 mm[Hg] Neda Liz PA-C Work Phone: [facility] 12-27-2023 11:02-0400 Body height 170.2 cm Neda Liz PA-C Work Phone: [facility] 12-27-2023 11:02-0400 Body mass index (BMI) [Ratio] 43.08 kg/m2 Neda Liz PA-C Work Phone: [facility] 12-27-2023 11:02-0400 Body temperature 97.7 [degF] Neda Liz PA-C Work Phone: [facility] 12-27-2023 11:02-0400 Body weight 124.8 kg Neda Liz PA-C Work Phone: [facility] 12-27-2023 11:02-0400 Heart rate 89 /min Neda Hill PA-C Work Phone: [facility] 12-27-2023 11:02-0400 Respiratory rate 16 /min Neda Hill PA-C Work Phone: [facility] 12-27-2023 11:02-0400 SaO2% (BldA) [Mass fraction] 98 % Neda Hill PA-C Work Phone: [facility] 12-16-2023 14:13-0400 Body height 170.18 cm [facility] 12-16-2023 14:13-0400 Body mass index (BMI) [Ratio] 42.7 kg/m2 [facility] 12-16-2023 14:13-0400 Body temperature 98.6 [degF] [facility] 12-16-2023 14:13-0400 Body weight 123.83 kg [facility] 12-16-2023 14:13-0400 Diastolic blood pressure 73 mm[Hg] [facility] 12-16-2023 14:13-0400 Heart rate 75 /min [facility] 12-16-2023 14:13-0400 Systolic blood pressure 106 mm[Hg] [facility] 11-29-2023 13:43-0400 Body temperature 97.59 [degF] Ma Sand Work Phone: [facility] 11-29-2023 13:43-0400 Diastolic blood pressure 51 mm[Hg] Ma Sand Work Phone: [facility] 11-29-2023 13:43-0400 Heart rate 73 /min Ma Sand Work Phone: [facility] 11-29-2023 13:43-0400 Respiratory rate 16 /min Ma Sand Work Phone: [facility] 11-29-2023 13:43-0400 SaO2% (BldA) [Mass fraction] 96 % Ma Sand Work Phone: [facility] 11-29-2023 13:43-0400 Systolic blood pressure 83 mm[Hg] Ma Sand Work Phone: [facility] 11-04-2023 13:55-0400 Body height 170.18 cm [facility] 11-04-2023 13:55-0400 Body temperature 97.3 [degF] [facility] 11-04-2023 13:55-0400 Diastolic blood pressure 54 mm[Hg] [facility] 11-04-2023 13:55-0400 Heart rate 62 /min [facility] 11-04-2023 13:55-0400 Systolic blood pressure 104 mm[Hg] [facility] 10-27-2023 14:44-0400 Body temperature 97 [degF] Ma Sand Work Phone: [facility] 10-27-2023 14:44-0400 Diastolic blood pressure 72 mm[Hg] Ma Sand Work Phone: [facility] 10-27-2023 14:44-0400 Heart rate 97 /min Ma Sand Work Phone: [facility] 10-27-2023 14:44-0400 Respiratory rate 18 /min Ma Sand Work Phone: [facility] 10-27-2023 14:44-0400 SaO2% (BldA) [Mass fraction] 97 % Ma Sand Work Phone: [facility] 10-27-2023 14:44-0400 Systolic blood pressure 110 mm[Hg] Ma Sand Work Phone: [facility] 10-20-2023 13:10-0400 Body height 170.18 cm [facility] 10-20-2023 13:10-0400 Body mass index (BMI) [Ratio] 43.2 kg/m2 [facility] 10-20-2023 13:10-0400 Body temperature 97.3 [degF] [facility] 10-20-2023 13:10-0400 Body weight 125.19 kg [facility] 10-20-2023 13:10-0400 Diastolic blood pressure 54 mm[Hg] [facility] 10-20-2023 13:10-0400 Heart rate 74 /min [facility] 10-20-2023 13:10-0400 Systolic blood pressure 111 mm[Hg] [facility] 09-30-2023 10:48-0400 Body temperature 97 [degF] Ma Sand Work Phone: [facility] 09-30-2023 10:48-0400 Diastolic blood pressure 82 mm[Hg] Ma Sand Work Phone: [facility] 09-30-2023 10:48-0400 Heart rate 71 /min Ma Sand Work Phone: [facility] 09-30-2023 10:48-0400 Respiratory rate 18 /min Ma Sand Work Phone: [facility] 09-30-2023 10:48-0400 SaO2% (BldA) [Mass fraction] 97 % Ma Sand Work Phone: [facility] 09-30-2023 10:48-0400 Systolic blood pressure 132 mm[Hg] Ma Sand Work Phone: [facility] 09-22-2023 14:41-0400 Body weight 117.93 kg [facility] 08-31-2023 10:34-0400 Body temperature 97.3 [degF] Ma Sand Work Phone: [facility] 08-31-2023 10:34-0400 Diastolic blood pressure 66 mm[Hg] Ma Sand Work Phone: [facility] 08-31-2023 10:34-0400 Heart rate 68 /min Ma Sand Work Phone: [facility] 08-31-2023 10:34-0400 Respiratory rate 18 /min Ma Sand Work Phone: [facility] 08-31-2023 10:34-0400 SaO2% (BldA) [Mass fraction] 99 % Ma Sand Work Phone: [facility] 08-31-2023 10:34-0400 Systolic blood pressure 105 mm[Hg] Ma Sand Work Phone: [facility] 08-05-2023 11:15-0400 Body temperature 97.39 [degF] Ma Sand Work Phone: [facility] 08-05-2023 11:15-0400 Diastolic blood pressure 41 mm[Hg] Ma Sand Work Phone: [facility] 08-05-2023 11:15-0400 Heart rate 68 /min Ma Sand Work Phone: [facility] 08-05-2023 11:15-0400 Respiratory rate 18 /min Ma Sand Work Phone: [facility] 08-05-2023 11:15-0400 SaO2% (BldA) [Mass fraction] 98 % Ma Sand Work Phone: [facility] 08-05-2023 11:15-0400 Systolic blood pressure 98 mm[Hg] Ma Sand Work Phone: [facility] 07-13-2023 11:49-0500 Body temperature 97.5 [degF] Ma Sand Work Phone: [facility] 07-13-2023 11:49-0500 Diastolic blood pressure 74 mm[Hg] Ma Sand Work Phone: [facility] 07-13-2023 11:49-0500 Heart rate 83 /min Ma Sand Work Phone: [facility] 07-13-2023 11:49-0500 Respiratory rate 18 /min Ma Sand Work Phone: [facility] 07-13-2023 11:49-0500 SaO2% (BldA) [Mass fraction] 96 % Ma Sand Work Phone: [facility] 07-13-2023 11:49-0500 Systolic blood pressure 109 mm[Hg] Ma Sand Work Phone: [facility] 07-13-2023 10:01-0500 Diastolic blood pressure 65 mm[Hg] Lois Holm MD Work Phone: [facility] 07-13-2023 10:01-0500 Systolic blood pressure 105 mm[Hg] Lois Holm MD Work Phone: [facility] 07-13-2023 09:41-0500 Body height 170.2 cm Lois Holm MD Work Phone: [facility] 07-13-2023 09:41-0500 Body mass index (BMI) [Ratio] 43.85 kg/m2 Lois Holm MD Work Phone: [facility] 07-13-2023 09:41-0500 Body weight 127.01 kg Lois Holm MD Work Phone: [facility] 07-13-2023 09:41-0500 Heart rate 71 /min Lois Holm MD Work Phone: [facility] 07-06-2023 14:48-0500 Body mass index (BMI) [Ratio] 41.81 kg/m2 Kade Richardson MD Work Phone: [facility] 07-06-2023 14:48-0500 Body weight 119.3 kg Kade Richardson MD Work Phone: [facility] 06-09-2023 08:45-0500 Body height 170.2 cm Michelle Jasmine APRN-RADIOLOGY SPECIAL PROCEDURE TECH Work Phone: [facility] 06-09-2023 08:45-0500 Body mass index (BMI) [Ratio] 44.48 kg/m2 Michelle Jasmine APRN-RADIOLOGY SPECIAL PROCEDURE TECH Work Phone: [facility] 06-09-2023 08:45-0500 Body weight 128.82 kg Michelle Jasmine APRN-RADIOLOGY SPECIAL PROCEDURE TECH Work Phone: [facility] 06-09-2023 08:45-0500 Diastolic blood pressure 82 mm[Hg] Michelle Jasmine APRN-RADIOLOGY SPECIAL PROCEDURE TECH Work Phone: [facility] 06-09-2023 08:45-0500 Heart rate 80 /min Michelle Jasmine SENIOR NURSE MANAGER-RADIOLOGY SPECIAL PROCEDURE TECH Work Phone: [facility] 06-09-2023 08:45-0500 Systolic blood pressure 146 mm[Hg] Michelle Jasmine SENIOR NURSE MANAGER-RADIOLOGY SPECIAL PROCEDURE TECH Work Phone: [facility] 05-26-2023 17:17-0500 Body weight 123.83 kg Christie Phan MD Work Phone: [facility] 04-26-2023 14:42-0500 Body weight 125.19 kg Christie Phan MD Work Phone: [facility] 03-19-2023 11:16-0400 Body temperature 97.7 [degF] Ma Sand Work Phone: [facility] 03-19-2023 11:16-0400 Diastolic blood pressure 54 mm[Hg] Ma Sand Work Phone: [facility] 03-19-2023 11:16-0400 Heart rate 75 /min Ma Sand Work Phone: [facility] 03-19-2023 11:16-0400 Respiratory rate 16 /min Ma Sand Work Phone: [facility] 03-19-2023 11:16-0400 SaO2% (BldA) [Mass fraction] 96 % Ma Sand Work Phone: [facility] 03-19-2023 11:16-0400 Systolic blood pressure 111 mm[Hg] Ma Sand Work Phone: [facility] 02-19-2023 10:56-0400 Body height 170.2 cm Vera Najera MD Work Phone: [facility] 02-19-2023 10:56-0400 Body temperature 97.39 [degF] Vera Najera MD Work Phone: [facility] 02-19-2023 10:56-0400 Body weight 120.75 kg Vera Najera MD Work Phone: [facility] 02-19-2023 10:56-0400 Diastolic blood pressure 69 mm[Hg] Vera Najera MD Work Phone: [facility] 02-19-2023 10:56-0400 Heart rate 110 /min Vera Najera MD Work Phone: [facility] 02-19-2023 10:56-0400 Respiratory rate 16 /min Vera Najera MD Work Phone: [facility] 02-19-2023 10:56-0400 SaO2% (BldA) [Mass fraction] 96 % Vera Najera MD Work Phone: [facility] 02-19-2023 10:56-0400 Systolic blood pressure 132 mm[Hg] Vera Najera MD Work Phone: [facility] 01-22-2023 12:09-0400 Diastolic blood pressure 76 mm[Hg] Ma Sand Work Phone: [facility] 01-22-2023 12:09-0400 Systolic blood pressure 107 mm[Hg] Ma Sand Work Phone: [facility] 01-22-2023 12:08-0400 Body temperature 97.59 [degF] Ma Sand Work Phone: [facility] 01-22-2023 12:08-0400 Heart rate 102 /min Ma Sand Work Phone: [facility] 01-22-2023 12:08-0400 Respiratory rate 16 /min Ma Sand Work Phone: [facility] 01-22-2023 12:08-0400 SaO2% (BldA) [Mass fraction] 97 % Ma Sand Work Phone: [facility] 11-19-2022 11:00-0400 Body temperature 97.2 [degF] Ma Sand Work Phone: [facility] 11-19-2022 11:00-0400 Diastolic blood pressure 54 mm[Hg] Ma Sand Work Phone: [facility] 11-19-2022 11:00-0400 Heart rate 98 /min Ma Sand Work Phone: [facility] 11-19-2022 11:00-0400 Respiratory rate 16 /min Ma Sand Work Phone: [facility] 11-19-2022 11:00-0400 SaO2% (BldA) [Mass fraction] 98 % Ma Sand Work Phone: [facility] 11-19-2022 11:00-0400 Systolic blood pressure 126 mm[Hg] Ma Sand Work Phone: [facility] 10-22-2022 11:51-0400 Body height 170.2 cm Ma Sand Work Phone: [facility] 10-22-2022 11:51-0400 Body weight 120.66 kg Ma Sand Work Phone: [facility] 10-22-2022 11:51-0400 Respiratory rate 16 /min Ma Sand Work Phone: [facility] 10-22-2022 10:50-0400 Body height 170.2 cm Vera Najera MD Work Phone: [facility] 10-22-2022 10:50-0400 Body temperature 97 [degF] Vera Najera MD Work Phone: [facility] 10-22-2022 10:50-0400 Body weight 120.75 kg Vera Najera MD Work Phone: [facility] 10-22-2022 10:50-0400 Diastolic blood pressure 55 mm[Hg] Vera Najera MD Work Phone: [facility] 10-22-2022 10:50-0400 Heart rate 78 /min Vera Najera MD Work Phone: [facility] 10-22-2022 10:50-0400 Respiratory rate 16 /min Vera Najera MD Work Phone: [facility] 10-22-2022 10:50-0400 SaO2% (BldA) [Mass fraction] 98 % Vera Najera MD Work Phone: [facility] 10-22-2022 10:50-0400 Systolic blood pressure 132 mm[Hg] Vera Najera MD Work Phone: [facility] 09-24-2022 10:22-0400 Body height 170.2 cm Ma Sand Work Phone: [facility] 09-24-2022 10:22-0400 Body temperature 97 [degF] Ma Sand Work Phone: [facility] 09-24-2022 10:22-0400 Body weight 120.2 kg Ma Sand Work Phone: [facility] 09-24-2022 10:22-0400 Diastolic blood pressure 81 mm[Hg] Ma Sand Work Phone: [facility] 09-24-2022 10:22-0400 Heart rate 77 /min Ma Sand Work Phone: [facility] 09-24-2022 10:22-0400 Respiratory rate 16 /min Ma Sand Work Phone: [facility] 09-24-2022 10:22-0400 SaO2% (BldA) [Mass fraction] 97 % Ma Sand Work Phone: [facility] 09-24-2022 10:22-0400 Systolic blood pressure 116 mm[Hg] Ma Sand Work Phone: [facility] 09-07-2022 14:03-0400 Body weight 120.2 kg Christie Phan MD Work Phone: [facility] 08-27-2022 09:45-0400 Body height 170.2 cm Rebekah Rojas APRN.RADIOLOGY SPECIAL PROCEDURE TECH Work Phone: [facility] 08-27-2022 09:45-0400 Body temperature 97.7 [degF] Rebekah Rojas APRN.RADIOLOGY SPECIAL PROCEDURE TECH Work Phone: [facility] 08-27-2022 09:45-0400 Body weight 118.66 kg Rebekah Rojas SENIOR NURSE MANAGER.RADIOLOGY SPECIAL PROCEDURE TECH Work Phone: [facility] 08-27-2022 09:45-0400 Diastolic blood pressure 55 mm[Hg] Rebekah Rojas SENIOR NURSE MANAGER.RADIOLOGY SPECIAL PROCEDURE TECH Work Phone: [facility] 08-27-2022 09:45-0400 Heart rate 63 /min Rebekah Rojas SENIOR NURSE MANAGER.RADIOLOGY SPECIAL PROCEDURE TECH Work Phone: [facility] 08-27-2022 09:45-0400 Respiratory rate 16 /min Rebekah Rojas SENIOR NURSE MANAGER.RADIOLOGY SPECIAL PROCEDURE TECH Work Phone: [facility] 08-27-2022 09:45-0400 SaO2% (BldA) [Mass fraction] 96 % Rebekah Rojas SENIOR NURSE MANAGER.RADIOLOGY SPECIAL PROCEDURE TECH Work Phone: [facility] 08-27-2022 09:45-0400 Systolic blood pressure 117 mm[Hg] Rebekah Rojas SENIOR NURSE MANAGER.RADIOLOGY SPECIAL PROCEDURE TECH Work Phone: [facility] 05-20-2022 13:28-0500 Body height 170.2 cm Vera Najera MD Work Phone: [facility] 05-20-2022 13:28-0500 Body temperature 97.7 [degF] Vera Najera MD Work Phone: [facility] 05-20-2022 13:28-0500 Diastolic blood pressure 70 mm[Hg] Vera Najera MD Work Phone: [facility] 05-20-2022 13:28-0500 Heart rate 93 /min Vera Najera MD Work Phone: [facility] 05-20-2022 13:28-0500 Respiratory rate 16 /min Vera Najera MD Work Phone: [facility] 05-20-2022 13:28-0500 SaO2% (BldA) [Mass fraction] 97 % Vera Najera MD Work Phone: [facility] 05-20-2022 13:28-0500 Systolic blood pressure 127 mm[Hg] Vera Najera MD Work Phone: [facility] 03-18-2022 10:49-0400 Body height 170.2 cm Vera Najera MD Work Phone: [facility] 03-18-2022 10:49-0400 Body temperature 97.81 [degF] Vera Najera MD Work Phone: [facility] 03-18-2022 10:49-0400 Body weight 113.4 kg Vera Najera MD Work Phone: [facility] 03-18-2022 10:49-0400 Diastolic blood pressure 49 mm[Hg] Vera Najera MD Work Phone: [facility] 03-18-2022 10:49-0400 Heart rate 86 /min Vera Najera MD Work Phone: [facility] 03-18-2022 10:49-0400 Respiratory rate 16 /min Vera Najera MD Work Phone: [facility] 03-18-2022 10:49-0400 SaO2% (BldA) [Mass fraction] 98 % Vera Najera MD Work Phone: [facility] 03-18-2022 10:49-0400 Systolic blood pressure 145 mm[Hg] Vera Najera MD Work Phone: [facility] 03-09-2022 11:41-0400 Body height 170.2 cm Christie Phan MD Work Phone: [facility] 03-09-2022 11:41-0400 Body weight 112.49 kg Christie Phan MD Work Phone: [facility] 03-09-2022 11:41-0400 Diastolic blood pressure 100 mm[Hg] Christie Phan MD Work Phone: [facility] 03-09-2022 11:41-0400 Systolic blood pressure 158 mm[Hg] Christie Phan MD Work Phone: [facility] 03-04-2022 10:39-0400 Body height 170.2 cm Vera Najera MD Work Phone: [facility] 03-04-2022 10:39-0400 Body temperature 97.5 [degF] Vera Najera MD Work Phone: [facility] 03-04-2022 10:39-0400 Body weight 112.76 kg Vera Najera MD Work Phone: [facility] 03-04-2022 10:39-0400 Diastolic blood pressure 48 mm[Hg] Vera Najera MD Work Phone: [facility] 03-04-2022 10:39-0400 Heart rate 79 /min Vera Najera MD Work Phone: [facility] 03-04-2022 10:39-0400 Respiratory rate 16 /min Vera Najera MD Work Phone: [facility] 03-04-2022 10:39-0400 SaO2% (BldA) [Mass fraction] 99 % Vera Najera MD Work Phone: [facility] 03-04-2022 10:39-0400 Systolic blood pressure 132 mm[Hg] Vera Najera MD Work Phone: [facility] 11-26-2021 16:00-0400 Body height 168.91 cm Mirela Kelsey Other [employer] Other 11-26-2021 16:00-0400 Body mass index (BMI) [Ratio] 37.68 kg/m2 Mirela Kelsey Other [employer] Other 11-26-2021 16:00-0400 Body temperature 98.4 [degF] Mirela Kelsey Other [employer] Other 11-26-2021 16:00-0400 Body weight 107.5 kg Mirela Buffy Other [employer] Other 11-26-2021 16:00-0400 Diastolic blood pressure 61 mm[Hg] Mirela Kelsey Other [employer] Other 11-26-2021 16:00-0400 Systolic blood pressure 115 mm[Hg] Mirela Kelsey Other [employer] Other 10-24-2021 08:18-0400 Body weight 108.86 kg Lynne Ni MD Work Phone: [facility] 10-24-2021 08:18-0400 Diastolic blood pressure 42 mm[Hg] Lynne Ni MD Work Phone: [facility] 10-24-2021 08:18-0400 Heart rate 72 /min Lynne Ni MD Work Phone: [facility] 10-24-2021 08:18-0400 Systolic blood pressure 106 mm[Hg] Lynne Ni MD Work Phone: [facility] 10-15-2021 15:45-0400 Body height 168.91 cm Mirela Kelsey Other [employer] Other 10-15-2021 15:45-0400 Body mass index (BMI) [Ratio] 38.31 kg/m2 Mirela Kelsey Other [employer] Other 10-15-2021 15:45-0400 Body temperature 98.1 [degF] Mirela Kelsey Other [employer] Other 10-15-2021 15:45-0400 Body weight 109.32 kg Mirela Kelsey Other [employer] Other 10-15-2021 15:45-0400 Diastolic blood pressure 60 mm[Hg] Mirela Kelsey Other [employer] Other 10-15-2021 15:45-0400 Systolic blood pressure 114 mm[Hg] Mirela Kelsey Other [employer] Other 09-11-2021 15:15-0400 Body height 168.91 cm Mirela Kelsey Other [employer] Other 09-11-2021 15:15-0400 Body mass index (BMI) [Ratio] 37.99 kg/m2 Mirela Kelsey Other [employer] Other 09-11-2021 15:15-0400 Body temperature 97.9 [degF] Mirela Kelsey Other [employer] Other 09-11-2021 15:15-0400 Body weight 108.41 kg Mirela Kelsey Other [employer] Other 09-11-2021 15:15-0400 Diastolic blood pressure 83 mm[Hg] Mirela Kelsey Other [employer] Other 09-11-2021 15:15-0400 Systolic blood pressure 144 mm[Hg] Mirela Kelsey Other [employer] Other 10-07-2020 12:45-0400 Diastolic blood pressure 78 mm[Hg] Stv A [facility] Phone: 10-07-2020 12:45-0400 Heart rate 68 /min Stv A XATA Phone: 10-07-2020 12:45-0400 SaO2% (BldA) [Mass fraction] 99 % Stv A [facility] Phone: 10-07-2020 12:45-0400 Systolic blood pressure 112 mm[Hg] Stv A Burt Work Phone: 10-07-2020 10:45-0400 Respiratory rate 22 /min Stv [employer] Phone: 10-07-2020 09:01-0400 Body height 170.2 cm Stv [employer] Work Phone: 10-07-2020 09:01-0400 Body mass index (BMI) [Ratio] 36.65 kg/m2 Stv [employer] Work Phone: 10-07-2020 09:01-0400 Body temperature 97.81 [degF] Stv [employer] Work Phone: 10-07-2020 09:01-0400 Body weight 106.14 kg Stv [employer] Work Phone: Encounters Encounter Date Encounter Type Care Provider Facility Start: 03-03-2025 End: 03-03-2025 ambulatory Gay Enciso PRINT BIND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-C Work Phone: [facility] Work Phone: Start: 03-03-2025 End: 03-03-2025 Departed Referred Jose Hays DO -[facility] Start: 03-02-2025 End: 03-02-2025 Admission to same day surgery center Terence Blum MD -[facility] [place] Start: 03-02-2025 End: 03-02-2025 ambulatory Gay Enciso PRINT BIND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-C Work Phone: [facility] Work Phone: Start: 03-02-2025 End: 03-03-2025 External Result Encounter Terence Blum MD Work Phone: [facility] External Department Unsolicited Start: 03-02-2025 End: 03-03-2025 External Result Encounter Terence Pacheco MD Work Phone: [facility] External Department Unsolicited Start: 02-28-2025 End: 02-28-2025 ambulatory Gay Enciso PRINT BIND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-C Work Phone: [facility] Work Phone: Start: 02-28-2025 End: 02-28-2025 Patient encounter procedure Bandar Portillo Lynne SENIOR NURSE MANAGER -[facility] Work Phone: Start: 02-28-2025 End: 02-28-2025 Office outpatient new 45 minutes Terence Blum MD Work Phone: [facility] Comment on above: Pilonidal abscess (Primary Dx); Pilonidal cyst Start: 02-28-2025 End: 02-28-2025 ambulatory TERENCE BLUM V Not Available Start: 02-26-2025 End: 02-26-2025 ambulatory Gay Enciso PRINT BIND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-C Work Phone: [facility] Work Phone: Start: 02-26-2025 End: 02-26-2025 Departed Referred Mathew Ji MD -[facility] Start: 02-21-2025 End: 02-22-2025 ambulatory VERA ABHYANKAR Facility:[facility] Start: 02-14-2025 End: 02-14-2025 Office outpatient visit 15 minutes [facility]abe [facility] Comment on above: Pilonidal cyst (Primary Dx); Hidradenitis suppurativa Start: 02-14-2025 End: 02-14-2025 ambulatory BERNABE ENGLISH Not Available Start: 02-14-2025 End: 02-14-2025 Durga English MD Work Phone: [facility] Start: 02-14-2025 End: 02-14-2025 Bamboo flowsheet Bernabe English MD [facility] Start: 02-14-2025 End: 02-14-2025 ambulatory Gay Natalie Enciso PRINT BIND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-C Work Phone: [facility] Work Phone: Start: 02-14-2025 End: 02-14-2025 Patient encounter procedure Margie Arnett PRINT BIND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 -[facility] Mg[facility] Work Phone: Start: 02-08-2025 End: 02-09-2025 ambulatory LYNNE NI Facility:[facility] Start: 01-31-2025 End: 01-31-2025 Admission to same day surgery center Adolfo Kang MD -[facility] Work Phone: Start: 01-31-2025 End: 01-31-2025 ambulatory Gay Natalie Enciso PRINT BIND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-C Work Phone: [facility] Work Phone: Start: 01-31-2025 Non-patient / Non-visit Adolfo Kang MD -[facility] Healt h Pain Mgmt [...] Results Start: 01-17-2025 End: 01-17-2025 ambulatory Gay Estrada Britt PRINT BIND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-C Work Phone: [facility] Work Phone: Start: 01-17-2025 End: 01-17-2025 Patient encounter procedure Margie Arnett PRINT BIND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 [facility] Work Phone: Start: 01-11-2025 End: 01-12-2025 ambulatory Chair Antonia Reese Work Phone: Hematology/Oncology Comment on above: Other systemic lupus erythematosus with other organ involvement (HCC) (Primary Dx); Elevated LFTs; Anemia of chronic disease; Elevated sed rate; Elevated C-reactive protein (CRP); Vitamin D deficiency; Vitamin B12 deficiency; Screening-pulmonary TB Start: 12-27-2024 End: 12-27-2024 ambulatory VERA NAJERA Facility:[facility] Start: 12-14-2024 End: 12-14-2024 Chart abstracting [facility] Main Work Phone: Neurology Comment on above: CMN Start: 12-14-2024 End: 12-15-2024 ambulatory Chair Antonia Reese Work Phone: Hematology/Oncology Comment on above: Other systemic lupus erythematosus with other organ involvement (HCC) (Primary Dx) Start: 12-12-2024 End: 12-12-2024 Patient encounter procedure Bandar Batista APRN -[facility] Work Phone: Start: 11-30-2024 End: 11-30-2024 Follow-up encounter Vaibhav Carvalho APRN.CNP Work Phone: Hematology/Oncology Comment on above: Results Start: 11-30-2024 End: 11-30-2024 ambulatory Gay Enciso PRINT BIND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-C Work Phone: [facility] Work Phone: Start: 11-30-2024 End: 11-30-2024 Patient encounter procedure Margie Arnett PRINT BIND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 -[facility] e[facility] Pain Mgmt Work Phone: Start: 11-29-2024 [...] Not Available Start: 11-22-2024 ambulatory Janes Barfield Facility:[facility] Start: 11-22-2024 Registered Recurring Janes Barfield MD -[facility] Start: 11-21-2024 End: 11-21-2024 ambulatory Gay Enciso PRINT BIND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-C Work Phone: [facility] Work Phone: Start: 11-21-2024 End: 11-21-2024 Patient encounter procedure Adolfo Kang MD [facility] Work Phone: Start: 11-21-2024 Non-patient / Non-visit Adolfo Kang MD [facility] Work Phone: Start: 11-20-2024 End: 11-20-2024 Telephone encounter Vaibhav Carvalho APRN.CNP Work Phone: Hematology/Oncology Comment on above: Lab Orders Start: 11-16-2024 End: 11-17-2024 ambulatory Chair 16 Gabbi Work Phone: Hematology/Oncology Comment on above: Other systemic lupus erythematosus with other organ involvement (HCC) (Primary Dx) Start: 11-15-2024 End: 11-20-2024 Telephone encounter Sandhya Whalen [facility] Work Phone: [facility] HB-3 Start: 11-13-2024 End: 11-13-2024 Patient encounter procedure Adolfo Kang MD [facility] Work Phone: Start: 10-31-2024 End: [...] Dx) Start: 10-17-2024 End: 10-17-2024 ambulatory MANUEL M Gal Facility:[facility] Start: 10-07-2024 End: 10-07-2024 Patient encounter [...] both feet; Long-term use of high-risk medication; nursing home current use of systemic steroids; Bilateral hand pain; Family history of Crohn's disease; 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; Bilateral wrist pain Start: 10-07-2024 End: 10-07-2024 Telemedicine consultation with patient Lynne Ni MD Work Phone: Rheumatology Start: 10-07-2024 End: 10-07-2024 ambulatory LYNNE NI Facility:[facility] Start: 10-06-2024 End: 10-06-2024 Telephone encounter Lynne iN MD Work Phone: Rheumatology Comment on above: [...] 09-20-2024 End: 09-20-2024 Specialty Pharmacy Aidee Quintanilla [facility] Comment on above: SPP Inflammatory Conditions - Medication Refill (Benlysta) Start: 09-19-2024 End: 09-19-2024 ambulatory MANUEL Lynne QUINNGal Facility:[facility] Start: 09-19-2024 End: 09-19-2024 Patient encounter procedure Deborah Arroyo [facility] Work Phone: [facility] [place] Comment on above: Fibromyalgia (Primary Dx); Family history of disease of aorta; Family history of cancer Generalized articula r hypermobility (Primary Dx); Chronic pain syndrome; Discoid lupus erythematosus; Family history of pneumothorax in son; Family history of cancer; Family history of mild aortic dilation in daughter Start: 09-19-2024 End: 09-19-2024 ambulatory LYNNE NI Facility:[facility] Start: 09-18-2024 End: 09-18-2024 Telephone encounter Vera Najera MD Work Phone: [facility] Comment on above: Future Appointment Start: 09-18-2024 [...] Appointment Start: 09-06-2024 End: 09-06-2024 ambulatory Chair Quinn Reese Work Phone: Hematology/Oncology Comment on above: Frequent [...] Start: 09-06-2024 End: 09-06-2024 ambulatory VAIBHAV CARVALHO Facility:[facility] Start: 09-04-2024 End: 09-04-2024 Office outpatient visit 25 minutes Gordo Barfield MD Work Phone: [facility] Comment on above: Thyroid nodule (CMS/HCC) (Primary Dx); LPRD (laryngopharyngeal reflux disease) Start: 09-04-2024 End: 09-04-2024 ambulatory GORDO BARFIELD Not Available Start: 09-04-2024 End: 09-04-2024 Bamboo flowsheet Gordo Barfield MD Work Phone: [facility] Start: 09-04-2024 End: 09-04-2024 Bamboo flowsheet Gordo Barfield MD Work Phone: [facility] Start: 09-01-2024 End: 09-02-2024 Refill Lynne Ni MD Work Phone: Rheumatology Comment on above: Refill Request Start: 08-29-2024 End: 08-29-2024 ambulatory MANUEL FERRIS Facility:[facility] Start: 08-28-2024 End: 08-28-2024 Telephone encounter Vaibhav Deven RODRIGUEZ Work Phone: Hematology/Oncology Comment on above: Lab Orders Start: 08-24-2024 End: 08-24-2024 Clinisync Result Encounter Gordo Barfield MD Work Phone: [facility] External Department Unsolicited Start: 08-24-2024 End: 08-24-2024 Clinisync Result Encounter Gordo Barfield MD Work Phone: [facility] External Department Unsolicited Start: 08-22-2024 End: 08-22-2024 ambulatory Gay LINC Work Phone: [facility] Work Phone: Start: 08-22-2024 End: 08-22-2024 Patient encounter procedure Gay LINC Work Phone: [facility] Physician [facility] Work Phone: Start: 08-17-2024 End: 08-17-2024 Specialty Pharmacy Aidee Quintanilla [facility] Comment on above: SPP Inflammatory [...] End: 07-31-2024 ambulatory Gay LINC Work Phone: [facility] Work Phone: Start: 07-31-2024 End: 07-31-2024 Patient encounter procedure Gay Enciso PRINT BIND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-C Work Phone: [facility] Work Phone: Start: 07-26-2024 End: 07-26-2024 Office outpatient visit 25 minutes Lois Holm MD Work Phone: [facility] Comment on above: Sinus tachycardia (Primary Dx); Shortness of breath; Paroxysmal supraventricular tachycardia (CMS-HCC); Essential hypertension; Obstructive sleep apnea syndrome; Morbid obesity (Multi); Current smoker Start: 07-26-2024 End: 07-26-2024 [facility] Start: 07-25-2024 End: 07-25-2024 Bamboo flowsheet Bernabe English MD Work Phone: [facility] Start: 07-25-2024 End: 07-25-2024 Bamboo flowsheet Bernabe English MD Work Phone: [facility] Start: 07-25-2024 End: 07-25-2024 Office outpatient visit 25 minutes Bernabe English MD Work Phone: [facility] Comment on above: Hidradenitis suppurativa (Primary Dx); Other seborrheic dermatitis; Lupus erythematosus tumidus (CMS/HCC); Rash and other nonspecific skin eruption; Capillary angioma; Neoplasm of uncertain behavior of skin Start: 07-25-2024 End: 07-25-2024 Specialty Pharmacy Aidee Quintanilla [facility] Comment on above: SPP Inflammatory Conditions - Medication Refill (Benlysta) Start: 07-20-2024 End: 07-20-2024 Telemedicine consultation with patient Alhajigal Head DO Work Phone: Infectious Disease Start: 07-20-2024 End: 07-20-2024 ambulatory Alhaji Head DO Work Phone: Infectious Disease Comment on above: Nipple discharge (Primary Dx); Other systemic lupus erythematosus with other organ involvement (HCC); On prednisone therapy; Long-term use of Plaquenil Start: 07-19-2024 Non-patient / Non-visit Gay Enciso NP-C Work Phone: [facility] Work Phone: Start: 07-19-2024 End: 07-19-2024 Admission to same day surgery center Gay Enciso NP-C Work Phone: [facility] Work Phone: Start: 07-19-2024 End: 07-19-2024 ambulatory Gay Enciso PRINT BIND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-C Work Phone: [facility] Work Phone: Start: 07-12-2024 End: 07-12-2024 ambulatory MARKY BARNES Facility:[facility] Start: 07-12-2024 End: 07-12-2024 Patient [...] lupus erythematosus Start: 07-10-2024 End: 07-10-2024 ambulatory [facility] Work Phone: Start: 07-10-2024 End: 07-10-2024 Patient encounter procedure [facility] Work Phone: Start: 07-09-2024 End: 07-10-2024 Telephone encounter Lynne Ni MD Work Phone: Rheumatology Comment on above: Results Start: 06-30-2024 End: 06-30-2024 ambulatory LYNNE NI Facility:[facility] Start: 06-29-2024 End: 06-29-2024 Specialty Pharmacy Aidee Quintanilla [facility] Comment on above: SPP Inflammatory Conditions - Medication Refill (Benlysta) Start: 06-20-2024 End: 06-23-2024 ambulatory [facility] [place] Comment on above: Iron Infusions Start: 06-20-2024 End: 06-21-2024 [facility] from caregiver [facility] Start: 06-20-2024 End: 06-23-2024 Patient encounter procedure Lynne Ni MD Work Phone: Rheumatology Comment on above: Flair Start: 06-16-2024 End: 06-20-2024 Telephone encounter Vaibhav Carvalho APRN.RADIOLOGY SPECIAL PROCEDURE TECH Work Phone: Hematology/Oncology Start: 06-15-2024 End: 06-15-2024 Telephone encounter Oly WARREN Work Phone: [facility] Start: 06-14-2024 End: 06-14-2024 Nursing evaluation of patient and report Breath Test Silverio Cp Nsg Wl Work Phone: [facility] Comment on above: Diarrhea, unspecified type (Primary Dx); Abdominal pressure Start: 06-13-2024 End: 06-13-2024 Office outpatient visit 25 minutes Vaibhav Carvalho APRN.RADIOLOGY SPECIAL PROCEDURE TECH Work Phone: Hematology/Oncology Comment on above: Megaloblastic [...] 06-12-2024 End: 06-13-2024 Telephone encounter Vaibhav Carvalho APRN.RADIOLOGY SPECIAL PROCEDURE TECH Work Phone: Hematology/Oncology Comment on above: Lab Orders Start: 06-06-2024 End: 06-06-2024 Bamboo flowsheet Oly WARREN Work Phone: [facility] Start: 06-06-2024 End: 06-10-2024 Bamboo flowsheet Oly WARREN Work Phone: [facility] Start: 06-06-2024 End: 06-10-2024 Clinisync Result Encounter Oly WARREN Work Phone: [facility] External Department Unsolicited Start: 06-06-2024 End: 06-06-2024 Specialty Pharmacy Aidee Quintanilla [facility] Comment on above: SPP Inflammatory Conditions - Medication Refill (Benlysta) Start: 06-06-2024 End: 06-06-2024 Patient encounter procedure Oly WARREN Work Phone: [facility] Healthcare Work Phone: Start: 06-06-2024 End: 06-06-2024 Periodic preventive med est patient 40-64yrs Oly WARREN Work Phone: [facility] Comment on above: Well woman exam with routine gynecologic al exam; Breast cancer screening by mammogram; Breast nodule Start: 05-19-2024 End: 05-19-2024 ambulatory Chair 3 Whitefield Work Phone: Hematology/Oncology Comment on above: Frequent infections (Primary Dx); Megaloblastic anemia due to vitamin B12 deficiency; Elevated sed rate; Hypogammaglobulinemia (HCC); Bilateral leg weakness; Discoid lupus erythematosus Start: 05-16-2024 End: 05-16-2024 Orders Only Vaibhav Carvalho APRN.RADIOLOGY SPECIAL PROCEDURE TECH Work Phone: Hematology/Oncology Start: 05-15-2024 End: 05-15-2024 Social Work Deisy Jaime [facility] Hematology/Oncology Start: 05-12-2024 End: 05-12-2024 Specialty Pharmacy Aidee Quintanilla [facility] Comment on above: SPP Inflammatory Conditions - Medication Refill (Benlysta) Start: 04-28-2024 End: 04-28-2024 Orders Only Pepper Cotter LPN [facility] Comment on above: Peripheral vascular disease, unspecified ([facility]) (Primary Dx); Cold extremities; Systemic lupus erythematosus ([facility]) Start: 04-26-2024 End: 04-26-2024 ambulatory VERA NAJERA Facility:[facility] Start: 04-26-2024 End: 04-26-2024 Nursing evaluation of patient and report Ma Nurse Dre Marshall Work Phone: Hematology/Oncology Comment on above: Elevated sed rate (Primary Dx); Megaloblastic anemia due to vitamin B12 deficiency Start: 04-14-2024 End: 10-05-2024 Telephone encounter [facility] Work Phone: [facility] Comment on above: Patient Update; Appointment Start: 04-11-2024 End: 04-11-2024 Specialty Pharmacy Aidee Quintanilla [facility] Comment on above: SPP Inflammatory Conditions - Medication Refill (Benlysta) Start: 04-10-2024 End: 04-10-2024 Bamboo flowsqian Barfield MD Work Phone: [facility] Start: 04-10-2024 End: 04-10-2024 Bamboo flowsheet Gordo Barfield MD Work Phone: [facility] Start: 04-10-2024 End: 04-10-2024 Telephone encounter Vera Najera MD Work Phone: Cancer [facility] Comment on above: Appointment Start: 04-10-2024 End: 04-10-2024 Office outpatient visit 25 minutes Gordo Barfield MD Work Phone: [facility] Comment on above: LPRD (laryngopharyngeal reflux disease) (Primary Dx); Acute otalgia, right Start: 04-10-2024 End: 04-10-2024 ambulatory GORDO BARFIELD Not Available Start: 04-07-2024 End: 04-07-2024 Social Work Deisy Jaime ORNAMENTAL METAL FABRICATOR APPRENTICE Hematology/Oncology Start: 04-06-2024 End: 04-06-2024 Clinisync Result Encounter Oly WARREN Work Phone: [facility] External Department Unsolicited Start: 04-06-2024 End: 04-06-2024 Clinisync Result Encounter Oly WARREN Work Phone: [facility] External Department Unsolicited Start: 04-06-2024 End: 04-06-2024 Office outpatient new 30 minutes Hayden Arciniega MD [facility] Comment on above: Systemic [...] 03-30-2024 ambulatory Maico Douglas MD Work Phone: [facility] Start: 03-27-2024 End: [...] Start: 03-27-2024 End: 03-28-2024 ambulatory VERA NAJERA Facility:[facility] Start: 03-23-2024 End: 03-23-2024 ambulatory OLY PLASCENCIA Not Available Start: 03-23-2024 End: 03-23-2024 Office outpatient visit 15 minutes Oly WARREN Work Phone: [facility] Comment on above: Abnormal uterine bleeding (AUB); Menorrhagia with regular cycle Start: 03-23-2024 End: 03-23-2024 Bamboo flowsheet Oly WARREN Work Phone: [facility] Start: 03-23-2024 End: 03-23-2024 Bamboo flowsheet Oly WARREN Work Phone: [facility] Start: 03-23-2024 End: 03-23-2024 Nursing evaluation of patient and report Ma Nurse Dre Marshall Work Phone: Hematology/Oncology Comment on above: Elevated sed rate (Primary Dx); Megaloblastic anemia due to vitamin B12 deficiency Start: 03-23-2024 End: 03-23-2024 ambulatory MANUEL FERRIS Facility:[facility] Start: 03-20-2024 End: 03-30-2024 Telephone encounter Akiko Cooper MD Work Phone: [facility] Start: 03-18-2024 End: 03-18-2024 ambulatory LYNNE NI Facility:[facility] Start: 03-18-2024 End: 03-18-2024 Patient encounter [...] feet; Long-term use of high-risk medication; 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; Bilateral hand [...] Not Available Start: 03-16-2024 End: 03-16-2024 ambulatory PRINT BIND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-C Gay Enciso Work Phone: [facility] Work Phone: Start: 03-16-2024 End: 03-16-2024 Patient encounter procedure PRINT BIND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-C Gay Enciso Work Phone: [facility] Physician [facility] Gastroenterology Work Phone: Start: 03-13-2024 End: 03-13-2024 Specialty Pharmacy Aidee Quintanilla [facility] Comment on above: SPP Inflammatory Conditions - Medication Refill (Benlysta - [facility] 09/2024) Start: 03-08-2024 End: 03-08-2024 ambulatory EHAB [facility] Start: 03-07-2024 End: 03-08-2024 Chart abstracting [facility] Main Work Phone: Neurology Comment on above: cmn Start: 03-02-2024 End: 03-02-2024 Refarabella Cuellar PRINT BIND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 Work Phone: [facility] 210 Comment on above: Lumbosacral radiculopathy at L5; Degenerative disc disease, lumbar; Cervical radiculopathy at C5 Start: 02-28-2024 End: 02-28-2024 ambulatory PRINT BIND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-C Gay Enciso Work Phone: [facility] Work Phone: Start: 02-28-2024 End: 02-28-2024 Patient encounter procedure PRINT BIND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-C Gay Enciso Work Phone: [facility] Physician Group[facility] Work Phone: Start: 02-22-2024 End: 02-22-2024 Telephone encounter Oly Elam Ananya Work Phone: [facility] Comment on above: 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 ) Start: 02-21-2024 End: 02-21-2024 Nursing evaluation of patient and report Ma Nurse Dre Marshall Work Phone: Hematology/Oncology Comment on above: Elevated sed rate (Primary Dx); Megaloblastic anemia due to vitamin B12 deficiency Start: 02-18-2024 End: 02-18-2024 Telephone encounter Lynne Ni MD Work Phone: Rheumatology Start: 02-16-2024 Non-patient / Non-visit PRINT BIND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-C Gay Enciso Work Phone: [facility] Work Phone: Start: 02-16-2024 End: 02-16-2024 Admission to same day surgery center PRINT BIND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-C Gay Enciso Work Phone: [facility] Work Phone: Start: 02-16-2024 End: 02-16-2024 ambulatory PRINT BIND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-C Gay Enciso Work Phone: [facility] Work Phone: Start: 02-15-2024 End: 02-15-2024 Telephone encounter Lexus Heck APRN.RADIOLOGY SPECIAL PROCEDURE TECH Work Phone: Neurology Comment on above: Orders (PAP RX.) Start: 02-14-2024 End: 02-14-2024 Follow-up encounter Aidee Quintanilla [facility] Comment on above: SPP Inflammatory Conditions - Follow-up (Benlysta); Insurance Authorization ([place] Submitted) Start: 02-14-2024 End: 02-14-2024 ambulatory Lexus Heck APRN.RADIOLOGY SPECIAL PROCEDURE TECH Work Phone: Neurology Comment on above: JOSE RAFAEL (obstructive sleep apnea) (Primary D x); Somnolence, daytime SPP Inflammatory Con ditions - Medication Refill (Benlysta - [facility] 09/2024) Start: 02-14-2024 End: 02-14-2024 Telemedicine consultation with patient Lexus Heck APRN.RADIOLOGY SPECIAL PROCEDURE TECH Work Phone: Neurology Start: 02-09-2024 End: 02-09-2024 Bamboo flowsheet Zita Cuellar PRINT BIND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 Work Phone: [facility] Start: 02-09-2024 End: 02-09-2024 Bamboo flowsheet Zita Cuellar PRINT BIND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 Work Phone: [facility] NE[facility] Start: 02-09-2024 End: 02-09-2024 Phys/qhp telephone evaluation 21-30 min Zita Cuellar PRINT BIND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 Work Phone: [facility] 210 Comment on above: Lumbosacral radiculopathy at L5 (Primary Dx); Degenerative disc disease, lumbar; Cervical radiculopathy at C5 Start: 02-07-2024 End: 02-07-2024 Refill Zita Cuellar PRINT BIND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 Work Phone: [facility] 210 Comment on above: Autoimmune disease (CMS/HCC); Fibromyalgia; Numbness Start: 01-28-2024 End: 01-31-2024 ambulatory Alhaji Head DO Work Phone: [facility] Work Phone: Comment on above: Blood work Start: 01-28-2024 End: 01-28-2024 Patient encounter procedure [facility] Work Phone: [...] 01-20-2024 Refill Kade Richardson MD Work Phone: [facility] 210 Comment on above: Degenerative disc disease, lumbar (Prima ry Dx); Lumbosacral radiculopathy at L5 Start: 01-18-2024 End: 01-19-2024 Specialty Pharmacy Aidee Quintanilla [facility] Comment on above: SPP Inflammatory [...] apnea syndrome Start: 12-24-2023 End: 12-24-2023 ambulatory [facility] Ambulatory Start: 12-16-2023 End: 12-16-2023 ambulatory [facility] Work Phone: Start: 12-16-2023 End: 12-16-2023 Patient encounter procedure [facility] Infectious Disease Work Phone: Start: 12-13-2023 Specialty Pharmacy Aidee Quintanilla [facility] Comment on above: SPP Inflammatory [...] acid Start: 11-15-2023 Specialty Pharmacy Aidee Quintanilla [facility] Comment on above: SPP Inflammatory Conditions - Medication Refill (Benlysta - NCA 09/2024) Start: 11-11-2023 Refill Lynne Ni MD Work Phone: Rheumatology Comment on above: Refill Request Start: 11-04-2023 End: 11-04-2023 [facility] Work Phone: Start: 11-04-2023 End: 11-04-2023 [facility] Infectious Disease Work Phone: Start: 10-27-2023 [...] on above: Cdiff Start: 10-20-2023 End: 10-20-2023 [facility] Work Phone: Start: 10-20-2023 End: 10-20-2023 [facility] Infectious Disease Work Phone: Start: 10-12-2023 Specialty Pharmacy Aidee Quintanilla [facility] Comment on above: SPP Inflammatory [...] of Plaquenil; Long-term use of high-risk medication; nursing home current use of systemic steroids; Raynaud's disease [...] Start: 09-22-2023 End: 09-22-2023 Patient encounter procedure [facility] Gastroenterology Work Phone: Start: 09-13-2023 Specialty Pharmacy Aidee Quintanilla [facility] Comment on above: SPP Inflammatory [...] with patient Vera Najera MD Work Phone: [facility] Start: 09-04-2023 Telephone encounter Lynne Ni MD Work Phone: Rheumatology Comment on above: Results Start: 08-31-2023 End: 08-31-2023 Nursing evaluation of patient and report Cele Marshall Work Phone: Hematology/Oncology Comment on above: 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); Elevated sed rate Start: 08-12-2023 Specialty Pharmacy Aidee Quintanilla [facility] Comment on above: SPP Inflammatory Conditions - Medication Refill (Benlysta ) Start: 08-05-2023 End: 08-05-2023 Nursing evaluation of patient and report Cele Marshall Work Phone: Hematology/Oncology Comment on above: 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); Elevated sed rate Start: 07-28-2023 [facility] Gastroenterology Work Phone: Start: 07-13-2023 [facility] Start: 07-13-2023 End: 07-13-2023 Nursing evaluation of patient and report Ma Nurse Dre Marshall Work Phone: Hematology/Oncology Comment on above: 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); Elevated sed rate SPP Inflammatory Con ditions - Medication Refill (Benlysta ) Start: 07-13-2023 End: 07-13-2023 Office outpatient new 45 minutes Lois Holm MD Work Phone: [facility] Comment on above: Shortness of breath (Primary Dx); Paroxysmal supraventricular tachycardia; PAC (premature atrial contraction); Current smoker; Systemic lupus erythematosus, unspecified SLE type, unspecified organ involvement status (CMS/HCC); Palpitations; Obstructive sleep apnea syndrome; Morbid obesity (CMS/HCC); Bilateral lower extremity edema Start: 07-06-2023 End: 07-06-2023 Office outpatient visit 25 minutes Kade Richardson MD Work Phone: [facility] 210 Comment on above: Autoimmune disease (CMS/HCC) (Primary Dx ); Autonomic dysfunction; Lumbosacral radiculopathy; Bilateral leg weakness Start: 07-05-2023 Chart abstracting Kade Richardson MD Work Phone: [facility] 210 Start: 06-09-2023 End: 06-09-2023 Office outpatient new 60 minutes Michelle TABOR Work Phone: [facility] Comment on above: Irregular [...] evaluation of patient and report Nurse Mora [facility] Nickie Work Phone: Rheumatology [...] sed rate; Bilateral wrist pain; 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; Steroid-induced osteoporosis; [...] with patient Lynne Ni MD Work Phone: [facility] Start: 01-28-2023 Refill Christie Phan [...] with patient Misty Nelson MD Work Phone: [facility] Start: 12-24-2022 Refill Christie Phan MD Work Phone: [facility] Comment on above: Refill Request Start: 12-18-2022 Telephone encounter Lidia Argueta RN Work Phone: Hematology/Oncology Comment on above: Care Coordination (appointment) Start: 12-17-2022 End: 12-18-2022 ambulatory Rebekah Rojas APRN.RADIOLOGY SPECIAL PROCEDURE TECH Work Phone: Hematology/Oncology Comment on above: 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); Chronic fatigue and malaise Start: 12-17-2022 End: 12-18-2022 Telemedicine consultation with patient Rebekah Rojas MAURILIO.RADIOLOGY SPECIAL PROCEDURE TECH Work Phone: [facility] Start: 12-16-2022 Telephone encounter Pamella Bettencourt RN Work Phone: Hematology/Oncology Comment on above: Appointment Start: 12-08-2022 ambulatory Vera Najera MD Work Phone: Hematology/Oncology Comment on above: Test results Start: 12-08-2022 Telephone encounter Enma Hamm dock worker/Oncology Comment on above: Results Start: 11-22-2022 ambulatory [...] Facility:[facility] Start: 09-08-2022 Telephone encounter Angelia [facility] Delivery - Compliance Comment on above: Compliance Adherence Start: 09-07-2022 End: 09-07-2022 Office outpatient visit 40 minutes Christie Phan MD Work Phone: [facility] Comment on above: Obesity, Class III, BMI >= 40 (Primary D x); Polypharmacy; Pre-diabetes Start: 09-01-2022 End: 09-02-[address] MANUEL FERRIS . Facility:[facility] Start: 08-29-2022 Refill Lynne Ni MD Work Phone: Rheumatology Comment on above: Refill Request Start: 08-27-2022 End: 08-27-2022 Nursing evaluation of patient and report Cele Marshall Work Phone: Hematology/Oncology Comment on above: 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); Elevated sed rate Start: 08-27-2022 End: 08-27-2022 ambulatory Rebekah Bob SENIOR NURSE MANAGER.RADIOLOGY SPECIAL PROCEDURE TECH Work Phone: Hematology/Oncology Comment on above: 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); Elevated sed rate; High total serum IgM; Chronic fatigue and malaise; JOSE RAFAEL (obstructive sleep apnea) Start: 08-27-2022 End: 08-27-2022 Patient encounter procedure Rebekah Bob THORPE.RADIOLOGY SPECIAL PROCEDURE TECH Work Phone: [facility] Start: 08-19-2022 Telephone encounter Lynne Ni MD Work Phone: Rheumatology Comment on above: Results Start: 08-15-2022 ambulatory Lynne Ni MD Work Phone: Rheumatology Comment on above: update Start: 08-10-2022 Refill Christie Phan MD Work Phone: [facility] Comment on above: Refill Request Start: 07-27-2022 End: 07-27-2022 ambulatory Lexus Heck MAURILIO.RADIOLOGY SPECIAL PROCEDURE TECH Work Phone: Neurology Comment on above: JOSE RAFAEL (obstructive sleep apnea) (Primary D x) Start: 07-27-2022 End: 07-27-2022 Telemedicine consultation with patient Lexus Heck APRN.RADIOLOGY SPECIAL PROCEDURE TECH Work Phone: [facility] Start: 07-24-2022 ambulatory Lynne Ni MD Work Phone: Rheumatology Comment on above: Blood work Start: 07-24-2022 Telephone encounter Vera Najrea MD Work Phone: Hematology/Oncology Comment on above: [...] Coordinator [facility] Comment on above: 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 Facility: Start: 03-10-2022 End: 03-10-2022 ambulatory Alhaji Head DO Work Phone: Infectious Disease Comment on above: results Raised level of immu noglobulins (Primary Dx); Wound healing, delayed; Current smoker Start: 03-10-2022 E-mail encounter from caregiver Alhaji Head DO Work Phone: [facility] Start: 03-10-2022 End: 03-10-2022 Telemedicine consultation with patient Misty Nelson MD Work Phone: [place] Start: 03-09-2022 End: 03-10-2022 ambulatory GAY ENCISO [...] encounter procedure Vera Najera MD Work Phone: [facility] Start: 03-02-2022 Chart abstracting Vera Najera MD Work Phone: Hematology/Oncology Start: 03-02-2022 Telephone encounter Milena Gandara MD Work Phone: Infectious Disease Comment on above: Opened In Error Start: 02-24-2022 End: 02-24-2022 ambulatory Alhaji Head Work Phone: Infectious Disease Comment on [...] 11-26-2021 End: 11-26-2021 ambulatory Mirela Kelsey Other [employer] Other Start: 11-26-2021 Office outpatient visit 25 [...] 10-15-2021 End: 10-15-2021 ambulatory Mirela Kelsey Other [employer] Other Start: 10-15-2021 Office outpatient visit 25 minutes Mirela LOPEZ Infectious Disease Start: 10-03-2021 End: [address] MIRELA KELSEY Facility: Start: 09-18-2021 End: 09-18-2021 ambulatory Mirela Kelsey Other [employer] Other Start: 09-18-2021 Telephone encounter Mirela LOPEZ Infectious Disease Start: 09-11-2021 End: 09-11-2021 ambulatory Mirela Kelsey Other [employer] Other Start: 09-11-2021 Office outpatient new 45 minutes Mirela Kelsey [facility] Infectious Disease Start: 10-07-2020 End: 10-08-2020 ambulatory JONAS HOLLEY [facility] Start: 10-07-2020 End: 10-07-2020 Subsequent hospital visit by physician Stv [employer] Rm A STVZ [employer] Comment on above: Arrived Start: 09-14-2018 End: 09-17-2018 Patient encounter procedure VICTOR MANUEL GUZMAN [facility] Procedures Date Procedure Procedure Detail Performing Clinician Start: 03-02-2025 AEROBIC CULTURE Terence Blum MD Work Phone: Start: 03-02-2025 ANAEROBIC CULTURE Adolfo Blum MD Work Phone: Start: 03-02-2025 Removal of pilonidal cyst Gay Encsio PRINT BIND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-C Work Phone: Start: 03-02-2025 Aerobic microbial culture Gay Enciso PRINT BIND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-C Work Phone: Start: 03-02-2025 Gram stain microscopy P kendrick Enciso PRINT BIND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-C Work Phone: Start: 02-26-2025 Urine culture Gay peralta PRINT BIND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-C Work Phone: Start: 01-31-2025 DH Nerve Radio Frequ ency (Bilateral) Gay Enciso PRINT BIND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-C Work Phone: Start: 01-11-2025 Blood count complete automated Lynne Ni MD Work Phone: Start: 10-02-2024 Blood count complete automated Lynne Ni MD Work Phone: Start: 10-02-2024 C-reactive protein Christie Ni MD Work Phone: Start: 09-06-2024 Assay of gammaglobul in iga igd igg igm each Vaibhav Carvalho SENIOR NURSE MANAGER.RADIOLOGY SPECIAL PROCEDURE TECH Work Phone: Start: 08-24-2024 Us soft tissue head & neck real time imge docm Gordo Barfield MD Work Phone: Start: 07-19-2024 Injection of local anesthetic into sacroiliac joint Gay Enciso PRINT BIND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-C Work Phone: Start: 06-13-2024 Blood count complete auto&auto difrntl wbc Vaibhav Carvalho APRN.RADIOLOGY SPECIAL PROCEDURE TECH Work Phone: Start: 06-06-2024 IGP,APTIMA HPV,AGE GDLN [...] Injection of local anesthetic into sacroiliac joint PRINT BIND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-C Gay Enciso Work Phone: Start: 07-13-2023 Ecg routine ecg w/le ast 12 lds w/i&r Lois Holm MD Work Phone: Start: 06-09-2023 Ecg routine ecg w/le ast 12 lds w/i&r Michelle Jasmine SENIOR NURSE MANAGER-RADIOLOGY SPECIAL PROCEDURE TECH Work Phone: Start: 09-10-2022 Microscopic observat ion [...] 09-11-2027 Screening for malignant neoplasm of cervix [facility] Start: 06-06-2027 Screening for malignant neoplasm of cervix [facility] Start: 09-10-2025 Screening for malignant neoplasm of cervix Pap Smear [facility] Start: 07-26-2025 End: 07-26-2025 Patient encounter procedure 07/26/2025 11:00 AM EST Office Visit [facility] [address] [id number] Lois Holm MD [address] [facility] [address] [place] [address] [facility] Start: 07-25-2025 End: 07-25-2025 Patient encounter procedure [facility] Start: 04-20-2025 End: 01-18-2026 25-hydroxyvitamin D3 [Mass/volume] in Serum or Plasma VITAMIN D 25 HYDROXY Lab Routine Vitamin D deficiency Expected: 04/20/2025 (Approximate), Expires: 01/18/2026 [facility] Comment on above: Expected: 04/20/2025 (Approximate), Expi res: 01/18/2026 Start: 04-20-2025 End: 01-18-2026 C reactive protein [Mass/volume] in Serum or Plasma C-REACTIVE PROTEIN Lab Routine Elevated C-reactive protein (CRP) Elevated sed rate Expected: 04/20/2025 (Approximate), Expires: 01/18/2026 [facility] Comment on above: Expected: 04/20/2025 (Approximate), Expi res: 01/18/2026 Start: 04-20-2025 End: 01-18-2026 CBC panel - Blood by Automated count COMPLETE BLOOD COUNT Lab Routine Anemia of chronic disease Expected: 04/20/2025 (Approximate), Expires: 01/18/2026 [facility] Comment on above: Expected: 04/20/2025 (Approximate), Expi res: 01/18/2026 Start: 04-20-2025 End: 01-18-2026 Comprehensive metabolic 2000 panel - Serum or Plasma COMPREHENSIVE METABOLIC PANEL Lab Routine Elevated LFTs Expected: 04/20/2025 (Approximate), Expires: 01/18/2026 [facility] Work Phone: Comment on above: Expected: 04/20/2025 (Approximate), Expi res: 01/18/2026 Start: 04-20-2025 End: 01-18-2026 Erythrocyte sedimentation rate SEDIMENTATION RATE, WESTERGREN Lab Routine Elevated C-reactive protein (CRP) Elevated sed rate Expected: 04/20/2025 (Approximate), Expires: 01/18/2026 [facility] Comment on above: Expected: 04/20/2025 (Approximate), Expi res: 01/18/2026 Start: 04-07-2025 Screening for malignant neoplasm of breast Mammogram [facility] Start: 04-06-2025 Adult BMI Screening Adult BMI Screening [facility] Start: 04-06-2025 Screening for malignant neoplasm of breast Mammogram [facility] Start: 04-06-2025 Tobacco Screening Tobacco Screening [facility] Start: 03-23-2025 End: 03-23-2025 Patient encounter procedure 03/23/2025 11:30 AM EDT Office Visit [facility] [address] [place] [phone] Terence Blum MD [address] [place] [address] [facility] Start: 03-19-2025 End: 03-19-2025 Patient encounter procedure [facility] Start: 03-17-2025 Diabetes mellitus screening Diabetes Screening [facility] Start: 03-03-2025 Urine culture [facility] Start: 03-03-2025 Bacteria identified in Urine by Culture Urine Culture [facility] Start: 03-02-2025 End: 03-02-2025 [facility] Start: 03-02-2025 Aerobic Culture Aerobic Culture [facility] Start: 03-02-2025 Anaerobic Culture Anaerobic Culture [facility] Start: 03-02-2025 Anaerobic microbial culture Anaerobic Culture [facility] Start: 03-02-2025 Microscopic observation [Identifier] in Unspecified specimen by Gram stain [facility] Start: 02-26-2025 Urine culture [facility] Start: 02-26-2025 Bacteria identified in Urine by Culture Urine Culture [facility] Start: 02-21-2025 End: 02-21-2025 ambulatory Hematology/Oncology Comment on above: 3 mo F/U-IVIG Start: 02-21-2025 End: 02-21-2025 Patient encounter procedure 02/21/2025 8:45 AM EDT Office Visit [facility] [address] [place] [address] [place] [address] 3 mo F/U-IVIG [facility] Comment on above: 3 mo F/U-IVIG Start: 02-14-2025 End: 02-14-2025 Patient encounter procedure 02/14/2025 3:20 PM EDT Office Visit [facility] [address] [place] [phone] Bernabe English MD [address] [place] [address] Arrived [facility] Comment on above: Arrived Start: 02-08-2025 End: 02-08-2025 ambulatory 02/08/2025 2:00 PM EDT Infusion Center Hematology/Oncology [address] [place] [address] [place] [address] [facility] - Hematology/Oncology Comment on above: [facility] - Start: 01-31-2025 [facility] Start: 01-24-2025 End: 01-24-2025 ambulatory Hematology/Oncology Comment on above: IVIG q4 weeks IVIG(5hours) q4 week s Start: 01-22-2025 Influenza vaccination [facility] Start: 01-06-2025 End: 10-06-2025 25-hydroxyvitamin D3 [Mass/volume] in Serum or Plasma VITAMIN D 25 HYDROXY Lab Routine Vitamin D deficiency Expected: 01/06/2025 (Approximate), Expires: 10/06/2025 [facility] Comment on above: Expected: 01/06/2025 (Approximate), Expi res: 10/06/2025 Start: 01-06-2025 End: 10-06-2025 BLOOD TB SCREEN BLOOD TB SCREEN Lab Routine Screening-pulmonary TB Expected: 01/06/2025 (Approximate), Expires: 10/06/2025 [facility] Comment on above: Expected: 01/06/2025 (Approximate), Expi res: 10/06/2025 Start: 01-06-2025 End: 10-06-2025 C reactive protein [Mass/volume] in Serum or Plasma C-REACTIVE PROTEIN Lab Routine Elevated sed rate Elevated C-reactive protein (CRP) Expected: 01/06/2025 (Approximate), Expires: 10/06/2025 [facility] Comment on above: Expected: 01/06/2025 (Approximate), Expi res: 10/06/2025 Start: 01-06-2025 End: 10-06-2025 CBC panel - Blood by Automated count COMPLETE BLOOD COUNT Lab Routine Anemia of chronic disease Expected: 01/06/2025 (Approximate), Expires: 10/06/2025 [facility] Comment on above: Expected: 01/06/2025 (Approximate), Expi res: 10/06/2025 Start: 01-06-2025 End: 10-06-2025 Chronic hepatitis differentiation between hepatitis B and C virus panel - Serum or Plasma HEP REMOTE PANEL BL Lab Routine Elevated LFTs Expected: 01/06/2025 (Approximate), Expires: 10/06/2025 [facility] Comment on above: Expected: 01/06/2025 (Approximate), Expi res: 10/06/2025 Start: 01-06-2025 End: 10-06-2025 Cobalamin (Vitamin B12) [Mass/volume] in Serum or Plasma VITAMIN B12 Lab Routine Vitamin B12 deficiency Expected: 01/06/2025 (Approximate), Expires: 10/06/2025 [facility] Comment on above: Expected: 01/06/2025 (Approximate), Expi res: 10/06/2025 Start: 01-06-2025 End: 10-06-2025 Comprehensive metabolic 2000 panel - Serum or Plasma COMPREHENSIVE METABOLIC PANEL Lab Routine Elevated LFTs Expected: 01/06/2025 (Approximate), Expires: 10/06/2025 [facility] Work Phone: Comment on above: Expected: 01/06/2025 (Approximate), Expi res: 10/06/2025 Start: 01-06-2025 End: 10-06-2025 Erythrocyte sedimentation rate SEDIMENTATION RATE, WESTERGREN Lab Routine Elevated sed rate Elevated C-reactive protein (CRP) Expected: 01/06/2025 (Approximate), Expires: 10/06/2025 [facility] Comment on above: Expected: 01/06/2025 (Approximate), Expi res: 10/06/2025 Start: 12-27-2024 End: 12-27-2024 ambulatory 12/27/2024 9:00 AM EDT Infusion Center Hematology/Oncology [address] [place] [address] IVIG q4 weeks Hematology/Oncology Comment on above: IVIG q4 weeks Start: 12-14-2024 End: 12-14-2024 ambulatory 12/14/2024 2:00 PM EDT Infusion Center Hematology/Oncology [address] [place] [address] [facility] - Hematology/Oncology Comment on above: [facility] - Start: 11-29-2024 End: 11-29-2024 ambulatory Hematology/Oncology Comment on above: 3 mo F/U-IVIG(slow infusion per pt reque st/B12 +/-IV iron lab Start: 11-29-2024 End: 11-29-2024 Patient encounter procedure 11/29/2024 8:45 AM EDT Office Visit [facility] [address] [place] [address] [place] [address] 3 mo F/U-IVIG(slow infusion per pt request/B12 +/-IV iron lab [facility] Comment on above: 3 mo F/U-IVIG(slow infusion per pt reque st/B12 +/-IV iron lab Start: 11-20-2024 End: 02-19-2025 CBC W Auto Differential panel - Blood COMPLETE BLOOD COUNT AND DIFFERENTIAL Lab Routine Hypogammaglobulinemia (HCC) Expected: 11/20/2024, Expires: 02/19/2025 [facility] Work Phone: Comment on above: Expected: 11/20/2024, Expires: Start: 11-20-2024 End: 02-19-2025 Cobalamin (Vitamin B12) [Mass/volume] in Serum or Plasma VITAMIN B12 Lab Routine Hypogammaglobulinemia (HCC) Expected: 11/20/2024, Expires: 02/19/2025 [facility] Comment on above: Expected: 11/20/2024, Expires: Start: 11-20-2024 End: 02-19-2025 Comprehensive metabolic 2000 panel - Serum or Plasma COMPREHENSIVE METABOLIC PANEL Lab Routine Hypogammaglobulinemia (HCC) Expected: 11/20/2024, Expires: 02/19/2025 [facility] Comment on above: Expected: 11/20/2024, Expires: Start: 11-20-2024 End: 02-19-2025 Ferritin [Mass/volume] in Serum or Plasma FERRITIN Lab Routine Hypogammaglobulinemia (HCC) Expected: 11/20/2024, Expires: 02/19/2025 [facility] Comment on above: Expected: 11/20/2024, Expires: Start: 11-20-2024 End: 02-19-2025 Folate [Mass/volume] in Serum or Plasma FOLATE, SERUM Lab Routine Hypogammaglobulinemia (HCC) Expected: 11/20/2024, Expires: 02/19/2025 [facility] Comment on above: Expected: 11/20/2024, Expires: Start: 11-20-2024 End: 02-19-2025 IMMUNOGLOBULINS,IGG,IGA,IG M IMMUNOGLOBULINS,IGG,IGA,IG M Lab Routine Hypogammaglobulinemia (HCC) Expected: 11/20/2024, Expires: 02/19/2025 [facility] Comment on above: Expected: 11/20/2024, Expires: Start: 11-20-2024 Influenza vaccination Influenza Vaccine (#1) [facility] Comment on above: Postponed from 01/23/2024 (Patient Refus ed) Start: 11-20-2024 End: 02-19-2025 Iron and Iron binding capacity panel - Serum or Plasma IRON AND TIBC Lab Routine Hypogammaglobulinemia (HCC) Expected: 11/20/2024, Expires: 02/19/2025 [facility] Comment on above: Expected: 11/20/2024, Expires: Start: 11-16-2024 End: 11-16-2024 ambulatory 11/16/2024 2:00 PM EDT Infusion Center Hematology/Oncology [address] [place] [address] [place] [address] [facility] - Hematology/Oncology Comment on above: [facility] - Start: 11-01-2024 End: 11-01-2024 ambulatory 11/01/2024 9:00 AM EDT Infusion Center Hematology/Oncology [address] [place] [address] IVIG q 4 weeks with B 12 inj and lab Hematology/Oncology Comment on above: IVIG q 4 weeks with B 12 inj and lab Start: 10-31-2024 End: 10-31-2024 ambulatory 10/31/2024 9:00 AM EDT Infusion Center Hematology/Oncology [address] [place] [address] IVIG q 4 weeks with B 12 inj and lab Hematology/Oncology Comment on above: IVIG q 4 weeks with B 12 inj and lab Start: 10-19-2024 End: 10-19-2024 ambulatory 10/19/2024 2:00 PM EDT Infusion Center Hematology/Oncology [address] [place] [address] [place] [address] [facility] - IVIG AND [facility] AT LEAST 1 DAY APART FOR FUTURE APPTS Hematology/Oncology Comment on above: [facility] - IVIG AND [facility] AT LEAST 1 DAY APART FOR FUTURE APPTS Start: 10-18-2024 End: 10-18-2024 Specialty Pharmacy 10/18/2024 10:00 AM EDT Specialty Pharmacy [id number] [place] [address] Pharmacist, [facility] [phone] [place] [address] [address] [place], [place] [id number] REFILL- Benlysta- PAx 02/11/25- - mult call attempts [facility] Comment on above: REFILL- Benlysta- PAx 02/11/25- - mult call attempts Start: 10-07-2024 End: 10-07-2024 Follow-up encounter 10/07/2024 8:00 AM EDT [facility] Rheumatology [address] [place] [address] Lynne Ni MD [address] [place] [address] follow up visit Rheumatology Comment on above: follow up visit Start: 10-06-2024 End: 07-09-2025 25-hydroxyvitamin D3 [Mass/volume] in Serum or Plasma VITAMIN D 25 HYDROXY Lab Routine Vitamin D deficiency Expected: 10/06/2024 (Approximate), Expires: 07/09/2025 [facility] Comment on above: Expected: 10/06/2024 (Approximate), Expi res: 07/09/2025 Start: 10-06-2024 End: 07-09-2025 C reactive protein [Mass/volume] in Serum or Plasma C-REACTIVE PROTEIN Lab Routine Elevated sed rate Elevated C-reactive protein (CRP) Expected: 10/06/2024 (Approximate), Expires: 07/09/2025 [facility] Comment on above: Expected: 10/06/2024 (Approximate), Expi res: 07/09/2025 Start: 10-06-2024 End: 07-09-2025 CBC panel - Blood by Automated count COMPLETE BLOOD COUNT Lab Routine Anemia of chronic disease Expected: 10/06/2024 (Approximate), Expires: 07/09/2025 [facility] Comment on above: Expected: 10/06/2024 (Approximate), Expi res: 07/09/2025 Start: 10-06-2024 End: 07-09-2025 Comprehensive metabolic 2000 panel - Serum or Plasma COMPREHENSIVE METABOLIC PANEL Lab Routine Elevated LFTs Expected: 10/06/2024 (Approximate), Expires: 07/09/2025 [facility] Work Phone: Comment on above: Expected: 10/06/2024 (Approximate), Expi res: 07/09/2025 Start: 10-06-2024 End: 07-09-2025 Erythrocyte sedimentation rate SEDIMENTATION RATE, WESTERGREN Lab Routine Elevated sed rate Elevated C-reactive protein (CRP) Expected: 10/06/2024 (Approximate), Expires: 07/09/2025 [facility] Comment on above: Expected: 10/06/2024 (Approximate), [...] 10/02/2024 9:00 AM EDT Infusion Center Hematology/Oncology [address] [place] [address] [place] [address] IVIG q 4 weeks with B 12 inj and lab Hematology/Oncology Comment on above: IVIG q 4 weeks with B 12 inj and lab Start: 09-28-2024 End: 09-28-2024 Specialty Pharmacy 09/28/2024 10:00 AM EDT Specialty Pharmacy [facility] [address] [place] [phone] Pharmacist, [facility] [address] [place] [address] [place] [address] REFILL- Benlysta- PAx 02/11/25- - LVM 09/20, 09/25 [facility] Comment on above: REFILL- Benlysta- PAx 02/11/25- urs - LVM 09/20, 09/25 Start: 09-25-2024 End: 09-25-2024 Specialty Pharmacy 09/25/2024 10:15 AM EDT Specialty Pharmacy [facility] [address] [place] [id number] Pharmacist, [facility] [address] [place] [address] [place] [address] REFILL- Benlysta- PAx 02/11/25- - LVM 09/20 [facility] Comment on above: REFILL- Benlysta- PAx 02/11/25- urs - LVM 09/20 Start: 09-20-2024 End: 09-20-2024 Specialty Pharmacy 09/20/2024 10:15 AM EDT Specialty Pharmacy [facility] [address] [place] [phone] Pharmacist, [facility] [address] [place] [address] [place] [address] REFILL- Benlysta- PAx 02/11/25- - pend new [...] Hematology/Oncology [address] [place] [address] 3 mo F/U-IVIG(slow infusion per pt request/B12 +/-IV iron Hematology/Oncology Comment on above: 3 mo F/U-IVIG(slow infusion per pt reque st/B12 +/-IV iron Start: 09-06-2024 End: 09-06-2024 Follow-up encounter Hematology/Oncology Comment on above: 3 month follow up IVIG for hypogammaglob ulinemia + b12 Start: 09-06-2024 End: 09-06-2024 Patient encounter procedure 09/06/2024 8:45 AM EDT Office Visit [facility] [address] [place] [address] [place] [address] 3 month follow up IVIG for hypogammaglobulinemia + b12 [facility] Comment on above: 3 month follow up IVIG for hypogammaglob ulinemia + b12 Start: 09-05-2024 End: 09-05-2024 Follow-up encounter Hematology/Oncology Comment on above: 3 month follow up IVIG for hypogammaglob ulinemia + b12 Start: 09-05-2024 End: 09-05-2024 Patient encounter procedure 09/05/2024 8:45 AM EDT Office Visit [facility] [address] [place] [address] [place] [address] 3 month follow up IVIG for hypogammaglobulinemia + b12 [facility] Comment on above: 3 month follow up IVIG for hypogammaglob ulinemia + b12 Start: 09-04-2024 End: 09-04-2024 Patient encounter procedure 09/04/2024 3:20 PM EDT Office Visit MABLE SANTO [address] [facility] [address] [place] [address] Gordo Barfield MD [address] [facility] [address] [place] [address] Arrived [facility] Comment on above: Arrived Start: 08-28-2024 End: 11-27-2024 CBC W Auto Differential panel - Blood COMPLETE BLOOD COUNT AND DIFFERENTIAL Lab Routine Vitamin B12 deficiency Other iron deficiency anemia Hypogammaglobulinemia (HCC) Expected: 08/28/2024, Expires: 11/27/2024 [facility] Work Phone: Comment on above: Expected: 08/28/2024, Expires: Start: 08-28-2024 End: 11-27-2024 Cobalamin (Vitamin B12) [Mass/volume] in Serum or Plasma VITAMIN B12 Lab Routine Vitamin B12 deficiency Other iron deficiency anemia Hypogammaglobulinemia (HCC) Expected: 08/28/2024, Expires: 11/27/2024 [facility] Comment on above: Expected: 08/28/2024, Expires: Start: 08-28-2024 End: 11-27-2024 Comprehensive metabolic 2000 panel - Serum or Plasma COMPREHENSIVE METABOLIC PANEL Lab Routine Vitamin B12 deficiency Other iron deficiency anemia Hypogammaglobulinemia (HCC) Expected: 08/28/2024, Expires: 11/27/2024 [facility] Comment on above: Expected: 08/28/2024, Expires: Start: 08-28-2024 End: 11-27-2024 Ferritin [Mass/volume] in Serum or Plasma FERRITIN Lab Routine Vitamin B12 deficiency Other iron deficiency anemia Hypogammaglobulinemia (HCC) Expected: 08/28/2024, Expires: 11/27/2024 [facility] Comment on above: Expected: 08/28/2024, Expires: Start: 08-28-2024 End: 11-27-2024 Folate [Mass/volume] in Serum or Plasma FOLATE, SERUM Lab Routine Vitamin B12 deficiency Other iron deficiency anemia Hypogammaglobulinemia (HCC) Expected: 08/28/2024, Expires: 11/27/2024 [facility] Comment on above: Expected: 08/28/2024, Expires: Start: 08-28-2024 End: 11-27-2024 IgG [Mass/volume] in Serum or Plasma IMMUNOGLOBULIN G Lab Routine Vitamin B12 deficiency Other iron deficiency anemia Hypogammaglobulinemia (HCC) Expected: 08/28/2024, Expires: 11/27/2024 [facility] Comment on above: Expected: 08/28/2024, Expires: Start: 08-28-2024 End: 11-27-2024 Iron and Iron binding capacity panel - Serum or Plasma IRON AND TIBC Lab Routine Vitamin B12 deficiency Other iron deficiency anemia Hypogammaglobulinemia (HCC) Expected: 08/28/2024, Expires: 11/27/2024 [facility] Comment on above: Expected: 08/28/2024, Expires: Start: 08-22-2024 End: 08-22-2024 Patient encounter procedure 08/22/2024 1:30 PM EDT Office Visit [facility] [address] [place] [address] Raj Kitchen MD [address] [place] [address] [facility] Start: 08-22-2024 End: 08-22-2024 Specialty Pharmacy 08/22/2024 10:15 AM EDT Specialty Pharmacy [facility] [address] [place] [phone] Pharmacist, [facility] [address] [place] [address] [place] [address] REFILL- Benlysta- PAx 02/11/25 08/17 [facility] Comment on above: REFILL- Benlysta- PAx 02/11/25- 08/17 Start: 08-17-2024 End: 08-17-2024 Specialty Pharmacy 08/17/2024 10:00 AM EDT Specialty Pharmacy [facility] [address] [place] [phone] Pharmacist, [facility] [address] [place] [address] [place] [address] REFILL- Benlysta- PAx 02/11/25 [facility] Comment on above: REFILL- Benlysta- PAx 02/11/25 Start: 08-15-2024 End: 08-15-2024 Patient encounter procedure 08/15/2024 10:20 AM EDT Office Visit [facility] [address] [place] [address] Gordo Barfield MD [address] [place] [address] [facility] Start: 08-08-2024 End: 08-08-2024 ambulatory 08/08/2024 9:30 AM EDT Infusion Center Hematology/Oncology [address] [place] [address] [place] [address] IVIG for hypogammaglobulinemia + b12 Hematology/Oncology Comment on above: IVIG for hypogammaglobulinemia + b12 Start: 08-01-2024 End: 08-01-2024 Patient encounter procedure 08/01/2024 10:30 AM EDT Office Visit [facility] [address] [place] [address] Bernabe English MD [address] [place] [address] [facility] Start: 07-25-2024 End: 07-25-2024 Specialty Pharmacy [facility] Comment on above: REFILL- Benlysta- PAx 02/11/25 Arrived Start: 07-20-2024 End: 07-20-2024 ambulatory 07/20/2024 11:30 AM [facility] Infectious Disease [address] [place] [address] Alhaji Head DO [address] [place] [address] Positive blood cultures [R78.81] Infectious Disease Comment on above: Positive blood cultures [R78.81] Start: 07-20-2024 End: 07-20-2024 Patient encounter procedure 07/20/2024 11:30 AM EST Office Visit Infectious Disease [address] [place] [address] Alhaji Head DO [address] [place] [address] Positive blood cultures [R78.81] Infectious Disease Comment on above: Positive blood cultures [R78.81] Start: 07-19-2024 [facility] Start: 07-13-2024 End: 07-13-2024 Patient encounter procedure 07/13/2024 9:20 AM EST Office Visit [address] [place] [address] Lois Holm MD [address] [facility] [place], [place] [id number] [facility] Start: 07-12-2024 End: 07-12-2024 Patient encounter procedure 07/12/2024 2:40 PM EST Office Visit Otolaryngology [address] [place], [place] [phone] Marky Barnes PA-C [address] [place], [place] [phone] Recurrent Thrush. Otolaryngology Comment on above: Recurrent Thrush. Start: 07-11-2024 End: 07-11-2024 ambulatory 07/11/2024 9:30 AM EST Infusion Center Hematology/Oncology [address] [place] [address] [place] [address] IVIG for hypogammaglobulinemia + b12 Hematology/Oncology Comment on above: IVIG for hypogammaglobulinemia + b12 Start: 07-03-2024 End: 04-02-2025 25-hydroxyvitamin D3 [Mass/volume] in Serum or Plasma VITAMIN D 25 HYDROXY Lab Routine Vitamin D deficiency Expected: 07/03/2024 (Approximate), Expires: 04/02/2025 [facility] Comment on above: Expected: 07/03/2024 (Approximate), Expi res: 04/02/2025 Start: 07-03-2024 End: 04-02-2025 C reactive protein [Mass/volume] in Serum or Plasma C-REACTIVE PROTEIN Lab Routine Elevated sed rate Elevated C-reactive protein (CRP) Expected: 07/03/2024 (Approximate), Expires: 04/02/2025 [facility] Comment on above: Expected: 07/03/2024 (Approximate), Expi res: 04/02/2025 Start: 07-03-2024 End: 04-02-2025 CBC panel - Blood by Automated count COMPLETE BLOOD COUNT Lab Routine Anemia of chronic disease Expected: 07/03/2024 (Approximate), Expires: 04/02/2025 [facility] Comment on above: Expected: 07/03/2024 (Approximate), Expi res: 04/02/2025 Start: 07-03-2024 End: 04-02-2025 Comprehensive metabolic 2000 panel - Serum or Plasma COMPREHENSIVE METABOLIC PANEL Lab Routine Elevated LFTs Expected: 07/03/2024 (Approximate), Expires: 04/02/2025 [facility] Work Phone: Comment on above: Expected: 07/03/2024 (Approximate), Expi res: 04/02/2025 Start: 07-03-2024 End: 04-02-2025 Erythrocyte sedimentation rate SEDIMENTATION RATE, WESTERGREN Lab Routine Elevated sed rate Elevated C-reactive protein (CRP) Expected: 07/03/2024 (Approximate), Expires: 04/02/2025 [facility] Comment on above: Expected: 07/03/2024 (Approximate), Expi res: 04/02/2025 Start: 06-29-2024 End: 06-29-2024 Specialty Pharmacy 06/29/2024 10:00 AM EST Specialty Pharmacy [facility] [address] [place] [address] [id number] [place] [address] Pharmacist, [facility] [address] [place] [address] REFILL- Benlysta- PAx 02/11/25 [facility] Comment on above: REFILL- Benlysta- PAx 02/11/25 Start: 06-26-2024 End: 06-26-2024 Nursing evaluation of patient and report 06/26/2024 9:45 AM EST Nurse Visit Hematology/Oncology [address] [place] [address] Cele Marsahll Nurse Dre [address] [place] [address] B12 Hematology/Oncology Comment on above: B12 Start: 06-26-2024 End: 06-26-2024 ambulatory Hematology/Oncology Comment on above: RTC 3 month IVIG for hypogammagl obulinemia Start: 06-26-2024 End: 06-26-2024 Patient encounter procedure 06/26/2024 8:45 AM EST Office Visit [facility] [address] [place] [address] labs [facility] Comment on above: labs Start: 06-14-2024 End: 06-14-2024 Nursing evaluation of patient and report [facility] Comment on above: Abdominal Pain/Diarrhea/Bandar S RADIOLOGY SPECIAL PROCEDURE TECH order ed/Patient has prep thru MyChart//cc SIBO - Abdominal Gus n/Diarrhea/Bandar S RADIOLOGY SPECIAL PROCEDURE TECH ordered/Patient has prep thru MyChart//cc Order in Scanned Documents Start: 06-13-2024 End: 09-12-2024 Cobalamin (Vitamin B12) [Mass/volume] in Serum or Plasma [facility] Comment on above: Expected: 06/13/2024, Expires: Start: 06-13-2024 End: 09-12-2024 Ferritin [Mass/volume] in Serum or Plasma [facility] Work Phone: Comment on above: Expected: 06/13/2024, Expires: Start: 06-13-2024 End: 09-12-2024 Folate [Mass/volume] in Serum or Plasma [facility] Comment on above: Expected: 06/13/2024, Expires: Start: 06-13-2024 End: 09-12-2024 Iron and Iron binding capacity panel - Serum or Plasma [facility] Comment on above: Expected: 06/13/2024, Expires: Start: 06-13-2024 End: 06-13-2024 Nursing evaluation of patient and report 06/13/2024 9:45 AM EST Nurse Visit Hematology/Oncology [address] [place] [address] Cele Marshall Nurse Dre [address] [place] [address] B12 Hematology/Oncology Comment on above: B12 Start: 06-13-2024 End: 06-13-2024 ambulatory Hematology/Oncology Comment on above: RTC 3 month IVIG for hypogammagl obulinemia Start: 06-13-2024 End: 06-13-2024 Patient encounter procedure 06/13/2024 8:45 AM EST Office Visit [facility] [address] [place] [address] labs [facility] Comment on above: labs Start: [...] AM EST Nurse Visit Hematology/Oncology [address] [place] [address] Cele Marshall Nurse Dre [address] [place] [address] B12 Hematology/Oncology Comment on above: B12 Start: 05-19-2024 End: 05-19-2024 ambulatory 05/19/2024 9:30 AM EST Infusion Center Hematology/Oncology [address] [place] [address] IVIG for hypogammaglobulinemia Hematology/Oncology Comment on above: IVIG for hypogammaglobulinemia Start: 05-12-2024 End: 05-12-2024 Specialty Pharmacy 05/12/2024 10:00 AM EST Specialty Pharmacy [id number] [place] [address] Pharmacist, [facility] [address] [place] [address] [place] [address] REFILL- Benlysta- PAx 02/11/25 [facility] Comment on above: REFILL- Benlysta- PAx 02/11/25 Start: 04-28-2024 End: 04-28-2025 US.doppler Extremity arteries - bilateral for physiologic artery study Vas art doppler lwr bilat mult lev/PVR Vascular Ultrasound Routine Peripheral vascular disease, unspecified (CMS-HCC) Cold extremities Systemic lupus erythematosus ([facility]) Expected: 04/28/2024, Expires: 04/28/2025 [facility] Work Phone: Comment on above: Expected: 04/28/2024, Expires: Start: 04-24-2024 End: 04-24-2024 Nursing evaluation of patient and report 04/24/2024 9:30 AM EST Nurse Visit Hematology/Oncology [address] [place] [address] Cele Marshall Nurse Dre [address] [place] [address] B12 Hematology/Oncology Comment on above: B12 Start: 04-18-2024 End: 04-18-2024 Nursing evaluation of patient and report [facility] Comment on above: [...] lower extremity, unspecified laterality Systemic lupus erythematosus ([facility]) Expected: 04/06/2024, Expires: 2025 [facility] Work Phone: Comment on above: Expected: 04/06/2024, Expires: Start: 03-28-2024 End: 03-28-2024 ambulatory 03/28/2024 1:00 PM [facility] Hematology/Oncology [address] [place] [address] [place] [address] Vera Najera MD [address] [place] [address] [place] [address] 13 wk virtual after labs last week Hematology/Oncology Comment on above: 13 wk virtual after labs last week Start: 03-23-2024 End: 03-23-2025 aPTT in Blood by Coagulation assay APTT Lab Routine Menorrhagia with regular cycle Expected: 03/23/2024 (Approximate), Expires: 03/23/2025 [facility] Comment on above: Expected: 03/23/2024 (Approximate), Expi res: 03/23/2025 Start: 03-23-2024 End: 03-23-2025 US for US PELVIS-TRANSVAG IF INDICATED Imaging Routine Menorrhagia with regular cycle Expected: 03/23/2024 (Approximate), Expires: 03/23/2025 [facility] Comment on above: Expected: 03/23/2024 (Approximate), Expi res: 03/23/2025 Start: 03-21-2024 End: 03-21-2024 Nursing evaluation of patient and report 03/21/2024 11:45 AM EDT Nurse Visit Hematology/Oncology [address] [place] [address] Cele Marshall Nurse Dre [address] [place] [address] b12 Hematology/Oncology Comment on above: b12 Start: 03-21-2024 End: 03-21-2024 Patient encounter procedure 03/21/2024 11:15 AM EDT Office Visit [facility] [address] [place] [address] LAb [facility] Comment on above: LAb Start: 03-20-2024 End: 12-29-2024 25-hydroxyvitamin D3 [Mass/volume] in Serum or Plasma VITAMIN D 25 HYDROXY Lab Routine Vitamin D deficiency Expected: 03/20/2024 (Approximate), Expires: 12/29/2024 [facility] Comment on above: Expected: 03/20/2024 (Approximate), Expi res: 12/29/2024 Start: 03-20-2024 End: 12-29-2024 BLOOD TB SCREEN BLOOD TB SCREEN Lab Routine Screening-pulmonary TB Expected: 03/20/2024 (Approximate), Expires: 12/29/2024 [facility] Comment on above: Expected: 03/20/2024 (Approximate), Expi res: 12/29/2024 Start: 03-20-2024 End: 12-29-2024 C reactive protein [Mass/volume] in Serum or Plasma C-REACTIVE PROTEIN Lab Routine Elevated C-reactive protein (CRP) Elevated sed rate Expected: 03/20/2024 (Approximate), Expires: 12/29/2024 [facility] Comment on above: Expected: 03/20/2024 (Approximate), Expi res: 12/29/2024 Start: 03-20-2024 End: 06-19-2024 CBC W Auto Differential panel - Blood COMPLETE BLOOD COUNT AND DIFFERENTIAL Lab Routine Megaloblastic anemia due to vitamin B12 deficiency Elevated sed rate Obstructive sleep apnea syndrome Expected: 03/20/2024 (Approximate), Expires: 06/19/2024 [facility] Comment on above: Expected: 03/20/2024 (Approximate), Expi res: 06/19/2024 Start: 03-20-2024 End: 06-19-2024 Cobalamin (Vitamin B12) [Mass/volume] in Serum or Plasma VITAMIN B12 Lab Routine Megaloblastic anemia due to vitamin B12 deficiency Elevated sed rate Obstructive sleep apnea syndrome Expected: 03/20/2024 (Approximate), Expires: 06/19/2024 [facility] Comment on above: Expected: 03/20/2024 (Approximate), Expi res: 06/19/2024 Start: 03-20-2024 End: 06-19-2024 Comprehensive metabolic 2000 panel - Serum or Plasma COMPREHENSIVE METABOLIC PANEL Lab Routine Megaloblastic anemia due to vitamin B12 deficiency Elevated sed rate Obstructive sleep apnea syndrome Expected: 03/20/2024 (Approximate), Expires: 06/19/2024 [facility] Work Phone: Comment on above: Expected: 03/20/2024 (Approximate), Expi res: 06/19/2024 Start: 03-20-2024 End: 12-29-2024 Erythrocyte sedimentation rate SEDIMENTATION RATE, WESTERGREN Lab Routine Elevated C-reactive protein (CRP) Elevated sed rate Expected: 03/20/2024 (Approximate), Expires: 12/29/2024 [facility] Work Phone: Comment on above: Expected: 03/20/2024 (Approximate), Expi res: 12/29/2024 Start: 03-20-2024 End: 06-19-2024 Ferritin [Mass/volume] in Serum or Plasma FERRITIN Lab Routine Megaloblastic anemia due to vitamin B12 deficiency Elevated sed rate Obstructive sleep apnea syndrome Expected: 03/20/2024 (Approximate), Expires: 06/19/2024 [facility] Comment on above: Expected: 03/20/2024 (Approximate), Expi res: 06/19/2024 Start: 03-20-2024 End: 06-19-2024 Folate [Mass/volume] in Serum or Plasma FOLATE, SERUM Lab Routine Megaloblastic anemia due to vitamin B12 deficiency Elevated sed rate Obstructive sleep apnea syndrome Expected: 03/20/2024 (Approximate), Expires: 06/19/2024 [facility] Comment on above: Expected: 03/20/2024 (Approximate), Expi res: 06/19/2024 Start: 03-20-2024 End: 06-19-2024 IMMUNOGLOBULINS,IGG,IGA,IG M IMMUNOGLOBULINS,IGG,IGA,IG M Lab Routine Megaloblastic anemia due to vitamin B12 deficiency Elevated sed rate Obstructive sleep apnea syndrome Expected: 03/20/2024 (Approximate), Expires: 06/19/2024 [facility] Comment on above: Expected: 03/20/2024 (Approximate), Expi res: 06/19/2024 Start: 03-20-2024 End: 06-19-2024 Iron and Iron binding capacity panel - Serum or Plasma IRON AND TIBC Lab Routine Megaloblastic anemia due to vitamin B12 deficiency Elevated sed rate Obstructive sleep apnea syndrome Expected: 03/20/2024 (Approximate), Expires: 06/19/2024 [facility] Comment on above: Expected: 03/20/2024 (Approximate), Expi res: 06/19/2024 Start: 03-18-2024 End: 03-18-2024 Patient encounter procedure 03/18/2024 9:00 AM EDT [facility] Rheumatology [address] [place] [address] Lynne Ni MD [address] [place], [place] [id number] May offer 03/18/24 Sat REJ 4th floor in person/virtual/phone for lupus Rheumatology Comment on above: May offer 03/18/24 Sat REJ 4th floor in person/virtual/phone for lupus Start: 03-16-2024 Patient referral [facility] Work Phone: Start: 03-16-2024 End: 05-16-2025 US Breast - bilateral Bilateral breast US complete Imaging Routine Nipple discharge Expected: 03/16/2024, Expires: 05/16/2025 [facility] Work Phone: Comment on above: Expected: [...] Visit Hematology/Oncology [address] [place] [address] Cele Marshall Nurse Dre [address] [facility] [place] [address] b12 Hematology/Oncology Comment on above: b12 Start: 02-22-2024 End: 02-22-2024 Patient encounter procedure 02/22/2024 11:15 AM EDT Office Visit [facility] [address] [place] [address] LAb [facility] Comment on above: LAb Start: 02-21-2024 End: 02-21-2024 Nursing evaluation of patient and report 02/21/2024 10:45 AM EDT Nurse Visit Hematology/Oncology [address] [place] [address] Cele Marshall Nurse Dre [address] [facility] [place] [address] b12 Hematology/Oncology Comment on above: b12 Start: 02-21-2024 End: 02-21-2024 Patient encounter procedure 02/21/2024 10:30 AM EDT Office Visit [facility] [address] [place] [address] LAb [facility] Comment on above: LAb Start: 02-16-2024 [facility] Start: 02-14-2024 End: 02-14-2024 Follow-up encounter Neurology Comment on above: Cpap follow up REFILL- Benlysta- PA x 02/04/24- NCA 09/2024-, ND 02/23 Start: 02-09-2024 End: 02-09-2024 Patient encounter procedure 02/09/2024 8:00 AM EDT Office Visit [facility] NEURO [address] [address] [place] [id number] Zita Cuellar, PR[employer] B[employer]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 [address], [place] [address] [facility] 210 Start: 01-27-2024 End: 04-27-2024 Bacteria identified in Blood by Culture BLOOD CULTURE Microbiology Routine Pseudomonas infection Expected: 01/27/2024, Expires: 04/27/2024 [facility] Work Phone: Comment on above: Expected: 01/27/2024, Expires: Start: 01-27-2024 End: 01-27-2024 Follow-up encounter 01/27/2024 10:00 AM EDT [facility] Infectious Disease [address] [place] [address] Alhaji Head DO [facility] [address] [place] [address] follow up Infectious Disease Comment on above: follow up Start: 01-25-2024 End: 01-25-2024 Nursing evaluation of patient and report Hematology/Oncology Comment on above: b12 B12(change date) Start: 01-25-2024 End: 01-25-2024 Patient encounter procedure [facility] Comment on above: LAb NO LAB ORDERS LAb Start: 01-24-2024 Influenza vaccination Influenza Vaccine (#1) [facility] Comment on above: Postponed from 01/22/2023 (Patient Refus ed) Start: 01-23-2024 Covid-19 Vaccine ( season) Covid-19 Vaccine () [facility] Start: 01-23-2024 Covid-19 Vaccine (6 - 2024-25 season) Covid-19 Vaccine ( season) [facility] Start: 01-23-2024 Influenza vaccination [facility] Start: 01-20-2024 End: 01-20-2024 Specialty Pharmacy [facility] Comment on above: refill - benlysta- NCA - pa exp: 02/04/24- 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 Start: 12-27-2023 End: 12-27-2023 Nursing evaluation of patient and report 12/27/2023 12:00 PM EDT Nurse Visit Hematology/Oncology [address] [place] [address] Cele Marshall Nurse Dre [address] [place] [address] b12 Hematology/Oncology Comment on above: b12 Start: 12-27-2023 End: 12-27-2023 Follow-up encounter 12/27/2023 11:30 AM EDT Visit (SP) Office Hematology/Oncology [address] [place] [address] Neda Hill PA-C [address] [place] [address] 13 week follow up, labs 1 week before Hematology/Oncology Comment on above: 13 week follow up, labs 1 week before Start: 12-27-2023 End: 12-27-2023 Patient encounter procedure 12/27/2023 11:15 AM EDT Office Visit [facility] [address] [place] [address] LAb [facility] Comment on above: LAb Start: 12-13-2023 End: 12-13-2023 Specialty Pharmacy 12/13/2023 10:00 AM EDT Specialty Pharmacy [facility] [employer] [facility] [id number] [place] [address] Pharmacist, [facility] [address] [place] [address] [place] [address] refill - benlysta- NCA - pa exp: 02/04/24- [facility] Comment on above: refill - benlysta- NCA 09/2024-- pa exp: 02/04/24- Start: 12-10-2023 End: 12-10-2023 Follow-up encounter 12/10/2023 10:45 AM EDT Visit (SP) Office Hematology/Oncology [address] [place] [address] Vera Najera MD [address] [place] [address] 13 week follow up, labs 1 week before Hematology/Oncology Comment on above: 13 week follow up, labs 1 week before Start: 12-04-2023 End: 09-03-2024 25-hydroxyvitamin D3 [Mass/volume] in Serum or Plasma VITAMIN D 25 HYDROXY Lab Routine Vitamin D deficiency Expected: 12/04/2023 (Approximate), Expires: 09/03/2024 [facility] Work Phone: Comment on above: Expected: 12/04/2023 (Approximate), Expi res: 09/03/2024 Start: 12-04-2023 End: 09-03-2024 C reactive protein [Mass/volume] in Serum or Plasma C-REACTIVE PROTEIN Lab Routine Elevated sed rate Elevated C-reactive protein (CRP) Expected: 12/04/2023 (Approximate), Expires: 09/03/2024 [facility] Work Phone: Comment on above: Expected: 12/04/2023 (Approximate), Expi res: 09/03/2024 Start: 12-04-2023 End: 09-03-2024 CBC panel - Blood by Automated count COMPLETE BLOOD COUNT Lab Routine Anemia of chronic disease Expected: 12/04/2023 (Approximate), Expires: 09/03/2024 [facility] Work Phone: Comment on above: Expected: 12/04/2023 (Approximate), Expi res: 09/03/2024 Start: 12-04-2023 End: 09-03-2024 Comprehensive metabolic 2000 panel - Serum or Plasma COMPREHENSIVE METABOLIC PANEL Lab Routine Elevated LFTs Expected: 12/04/2023 (Approximate), Expires: 09/03/2024 [facility] Work Phone: Comment on above: Expected: 12/04/2023 (Approximate), Expi res: 09/03/2024 Start: 12-04-2023 End: 09-03-2024 Erythrocyte sedimentation rate SEDIMENTATION RATE, WESTERGREN Lab Routine Elevated sed rate Elevated C-reactive protein (CRP) Expected: 12/04/2023 (Approximate), Expires: 09/03/2024 [facility] Work Phone: Comment on above: Expected: 12/04/2023 (Approximate), Expi res: 09/03/2024 Start: 12-03-2023 End: 12-03-2023 Nursing evaluation of patient and report 12/03/2023 11:00 AM EDT Nurse Visit Hematology/Oncology [address] [place], [place] [id number] Cele Marshall Nurse Dre [address] [place] [address] b12 Hematology/Oncology Comment on above: b12 Start: 12-03-2023 End: 12-03-2023 Patient encounter procedure 12/03/2023 10:45 AM EDT Office Visit [facility] [address] [place] [address] lab [facility] Comment on above: lab Start: 12-02-2023 End: 09-08-2024 CBC W Auto Differential panel - Blood COMPLETE BLOOD COUNT AND DIFFERENTIAL Lab Routine Megaloblastic anemia due to vitamin B12 deficiency High total serum IgM Expected: 12/02/2023 (Approximate), Expires: 09/08/2024 [facility] Work Phone: Comment on above: Expected: 12/02/2023 (Approximate), Expi res: 09/08/2024 Start: 12-02-2023 End: 09-08-2024 Cobalamin (Vitamin B12) [Mass/volume] in Serum or Plasma VITAMIN B12 Lab Routine Megaloblastic anemia due to vitamin B12 deficiency High total serum IgM Expected: 12/02/2023 (Approximate), Expires: 09/08/2024 [facility] Work Phone: Comment on above: Expected: 12/02/2023 (Approximate), Expi res: 09/08/2024 Start: 12-02-2023 End: 09-08-2024 Comprehensive metabolic 2000 panel - Serum or Plasma COMPREHENSIVE METABOLIC PANEL Lab Routine Megaloblastic anemia due to vitamin B12 deficiency High total serum IgM Expected: 12/02/2023 (Approximate), Expires: 09/08/2024 [facility] Work Phone: Comment on above: Expected: 12/02/2023 (Approximate), Expi res: 09/08/2024 Start: 12-02-2023 End: 03-02-2024 Erythrocyte sedimentation rate SEDIMENTATION RATE, WESTERGREN Lab Routine Megaloblastic anemia due to vitamin B12 deficiency High total serum IgM Expected: 12/02/2023 (Approximate), Expires: 03/02/2024 [facility] Work Phone: Comment on above: Expected: 12/02/2023 (Approximate), Expi res: 03/02/2024 Start: 12-02-2023 End: 09-08-2024 Ferritin [Mass/volume] in Serum or Plasma FERRITIN Lab Routine Megaloblastic anemia due to vitamin B12 deficiency High total serum IgM Expected: 12/02/2023 (Approximate), Expires: 09/08/2024 [facility] Work Phone: Comment on above: Expected: 12/02/2023 (Approximate), Expi res: 09/08/2024 Start: 12-02-2023 End: 09-08-2024 Folate [Mass/volume] in Serum or Plasma FOLATE, SERUM Lab Routine Megaloblastic anemia due to vitamin B12 deficiency High total serum IgM Expected: 12/02/2023 (Approximate), Expires: 09/08/2024 [facility] Work Phone: Comment on above: Expected: 12/02/2023 (Approximate), Expi res: 09/08/2024 Start: 12-02-2023 End: 03-02-2024 IgA [Mass/volume] in Serum or Plasma IMMUNOGLOBULIN A Lab Routine Megaloblastic anemia due to vitamin B12 deficiency High total serum IgM Expected: 12/02/2023 (Approximate), Expires: 03/02/2024 [facility] Work Phone: Comment on above: Expected: 12/02/2023 (Approximate), Expi res: 03/02/2024 Start: 12-02-2023 End: 03-02-2024 IgE [Units/volume] in Serum or Plasma IMMUNOGLOBULIN E Lab Routine Megaloblastic anemia due to vitamin B12 deficiency High total serum IgM Expected: 12/02/2023 (Approximate), Expires: 03/02/2024 [facility] Work Phone: Comment on above: Expected: 12/02/2023 (Approximate), Expi res: 03/02/2024 Start: 12-02-2023 End: 03-02-2024 IgG [Mass/volume] in Serum or Plasma IMMUNOGLOBULIN G Lab Routine Megaloblastic anemia due to vitamin B12 deficiency High total serum IgM Expected: 12/02/2023 (Approximate), Expires: 03/02/2024 [facility] Work Phone: Comment on above: Expected: 12/02/2023 (Approximate), Expi res: 03/02/2024 Start: 12-02-2023 End: 03-02-2024 IgM [Mass/volume] in Serum or Plasma IMMUNOGLOBULIN M Lab Routine Megaloblastic anemia due to vitamin B12 deficiency High total serum IgM Expected: 12/02/2023 (Approximate), Expires: 03/02/2024 [facility] Work Phone: Comment on above: Expected: 12/02/2023 (Approximate), Expi res: 03/02/2024 Start: 12-02-2023 End: 09-08-2024 Iron and Iron binding capacity panel - Serum or Plasma IRON AND TIBC Lab Routine Megaloblastic anemia due to vitamin B12 deficiency High total serum IgM Expected: 12/02/2023 (Approximate), Expires: 09/08/2024 [facility] Work Phone: Comment on above: Expected: 12/02/2023 (Approximate), Expi res: 09/08/2024 Start: 11-29-2023 End: 11-29-2023 Nursing evaluation of patient and report 11/29/2023 2:15 PM EDT Nurse Visit Hematology/Oncology [address] [facility] [place] [address] Cele Marshall Nurse Dre [address] [place] [address] b12 Hematology/Oncology Comment on above: b12 Start: 11-15-2023 End: 11-15-2023 Specialty Pharmacy 11/15/2023 10:00 AM EDT Specialty Pharmacy [facility] [employer] [facility] [id number] [place] [address] Pharmacist, [facility] [address] [place] [address] [place] [address] refill - benlysta- NCA - pa exp: 02/04/24- [facility] Comment on above: refill - benlysta- NCA 09/2024-- pa exp: 02/04/24- Start: 10-29-2023 End: 10-29-2023 Nursing evaluation of patient and report 10/29/2023 11:00 AM EDT Nurse Visit Hematology/Oncology [address] [facility] [address] [facility] [facility] [place] [address] Cele Marshall Nurse Dre [address] [place] [address] b12 Hematology/Oncology Comment on above: b12 Start: 10-15-2023 End: 10-15-2023 Specialty Pharmacy 10/15/2023 10:00 AM EDT Specialty Pharmacy [facility] [employer] [facility] [id number] [place] [address] Pharmacist, [facility] [address] [place] [address] [place] [address] refill - benlysta-- pa exp: 02/04/24-l/m 10/11 [facility] Comment on above: refill - benlysta-Thursdays- pa exp: 01/22 08/14-l/m 10/11 Start: 10-12-2023 End: 10-12-2023 Specialty Pharmacy 10/12/2023 10:00 AM EDT Specialty Pharmacy [facility] [address] [place] [id number] Pharmacist, [facility] [address] [place] [address] [place] [address] refill - benlysta-Thursdays- pa exp: 02/04/24- [facility] Comment on above: refill - benlysta-Thursdays- pa exp: 01/22 08/14- Start: 10-05-2023 End: 10-05-2023 Patient encounter procedure 10/05/2023 8:00 AM EDT [facility] Rheumatology [address] [place] [address] Lynne Ni MD [address] [place] [place], [place] [id number] 6 mo f/u for Lupus Rheumatology Comment on above: 6 mo f/u for Lupus Start: 10-01-2023 End: 10-01-2023 Nursing evaluation of patient and report 10/01/2023 11:00 AM EDT Nurse Visit Hematology/Oncology [address] [place] [address] Cele Marshall Nurse Dre [address] [place] [address] b12 Hematology/Oncology Comment on above: b12 Start: 09-16-2023 End: 09-16-2023 Specialty Pharmacy 09/16/2023 10:00 AM EDT Specialty Pharmacy [facility] [address] [place] [id number] Pharmacist, [facility] [address] [place] [address] [place] [address] refill - benlysta-Thursdays- pa exp: 02/04/24-lv [facility] Comment on above: refill - benlysta-Thursdays- pa exp: 01/22 08/14-lvm Start: 09-13-2023 End: 09-13-2023 Patient encounter procedure 09/13/2023 9:00 AM EDT Office Visit [facility] [address] [place] [address] Kade Richardson MD [address] [facility] [address] [place] [address], [place] [id number] [facility] Start: 07-19-2023 End: 07-19-2023 Patient encounter procedure [facility] Start: 07-15-2023 End: 07-15-2023 Patient encounter procedure 07/15/2023 10:50 AM EST Office Visit [facility] [address] [place] [address] Bernabe English MD [address] [place] [address] [facility] Start: 07-06-2023 End: 07-06-2023 Patient encounter procedure 07/06/2023 2:30 PM EST Office Visit [facility]O [address] [place] [address], [place] [id number] Kade Richardson MD [address] [facility] [address] [place] [address], [place] [address] [facility] NE[facility] 210 Start: 07-06-2023 End: 07-06-2024 Protein electrophoresis, serum Protein electrophoresis, serum Lab Routine Autoimmune disease (CMS/HCC) Autonomic dysfunction Expected: 07/06/2023 (Approximate), Expires: 07/06/2024 [facility] Work Phone: Comment on above: Expected: 07/06/2023 (Approximate), Expi res: 07/06/2024 Start: 07-06-2023 End: 07-06-2024 Protein electrophoresis, urine Protein electrophoresis, urine Lab Routine Autoimmune disease (CMS/HCC) Autonomic dysfunction Expected: 07/06/2023 (Approximate), Expires: 07/06/2024 [facility] Comment on above: Expected: 07/06/2023 (Approximate), Expi res: 07/06/2024 Start: 06-09-2023 End: 06-09-2024 Holter monitor study Holter Or Event [employer] [facility] [facility] Routine Irregular heart rate Expected: 06/09/2023 (Approximate), Expires: 06/09/2024 [facility] Work Phone: Comment on above: Expected: 06/09/2023 (Approximate), Expi res: 06/09/2024 Start: 06-09-2023 End: 06-09-2024 Lipid 1996 panel - Serum or Plasma Lipid Panel Lab Routine Primary hypertension Expected: 06/09/2023 (Approximate), Expires: 06/09/2024 [facility] Work Phone: Comment on above: Expected: 06/09/2023 (Approximate), Expi res: 06/09/2024 Start: 06-09-2023 End: 06-09-2024 Thyrotropin [Units/volume] in Serum or Plasma Thyroid Stimulating Hormone Lab Routine Irregular heart rate Expected: 06/09/2023 (Approximate), Expires: 06/09/2024 [facility] Work Phone: Comment on above: Expected: 06/09/2023 (Approximate), Expi res: 06/09/2024 Start: 06-09-2023 End: 06-09-2024 Thyroxine (T4) free [Mass/volume] in Serum or Plasma Thyroxine, Free Lab Routine Irregular heart rate Expected: 06/09/2023 (Approximate), Expires: 06/09/2024 [facility] Work Phone: Comment on above: Expected: 06/09/2023 (Approximate), Expi res: 06/09/2024 Start: 06-09-2023 End: 06-09-2025 Heart Transthoracic Transthoracic Echo (TTE) Complete Echocardiography Routine Irregular heart rate Obstructive sleep apnea syndrome Expected: 06/09/2023 (Approximate), Expires: 06/09/2025 [facility] Work Phone: Comment on above: Expected: 06/09/2023 (Approximate), Expi res: 06/09/2025 Start: 04-25-2023 End: 01-25-2024 25-hydroxyvitamin D3 [Mass/volume] in Serum or Plasma VITAMIN D 25 HYDROXY Lab Routine Vitamin D deficiency Expected: 04/25/2023 (Approximate), Expires: 01/25/2024 [facility] Work Phone: Comment on above: Expected: 04/25/2023 (Approximate), Expi res: 01/25/2024 Start: 04-25-2023 End: 01-25-2024 C reactive protein [Mass/volume] in Serum or Plasma C-REACTIVE PROTEIN (CRP) Lab Routine Elevated sed rate Elevated C-reactive protein (CRP) Expected: 04/25/2023 (Approximate), Expires: 01/25/2024 [facility] Work Phone: Comment on above: Expected: 04/25/2023 (Approximate), Expi res: 01/25/2024 Start: 04-25-2023 End: 01-25-2024 CBC panel - Blood by Automated count CBC Lab Routine Anemia of chronic disease Expected: 04/25/2023 (Approximate), Expires: 01/25/2024 [facility] Work Phone: Comment on above: Expected: 04/25/2023 (Approximate), Expi res: 01/25/2024 Start: 04-25-2023 End: 01-25-2024 Comprehensive metabolic 2000 panel - Serum or Plasma COMP METABOLIC PANEL Lab Routine Elevated LFTs Expected: 04/25/2023 (Approximate), Expires: 01/25/2024 [facility] Work Phone: Comment on above: Expected: 04/25/2023 (Approximate), Expi res: 01/25/2024 Start: 04-25-2023 End: 01-25-2024 Erythrocyte sedimentation rate SED RATE WESTERGREN Lab Routine Elevated sed rate Elevated C-reactive protein (CRP) Expected: 04/25/2023 (Approximate), Expires: 01/25/2024 [facility] Work Phone: Comment on above: Expected: 04/25/2023 (Approximate), Expi res: 01/25/2024 Start: 04-20-2023 COVID-19 Vaccine (4 - Pfizer risk series) COVID-19 Vaccine (4 - Pfizer risk series) [facility] Start: 04-20-2023 Covid-19 Vaccine ( season) Covid-19 Vaccine () [facility] Start: 04-20-2023 Covid-19 Vaccine ( season) Covid-19 Vaccine () [facility] Start: 04-16-2023 End: 02-20-2024 CBC W Auto Differential panel - Blood CBC + DIFF Lab Routine Megaloblastic anemia due to vitamin B12 deficiency Elevated sed rate Chronic fatigue and malaise High total serum IgM JOSE RAFAEL (obstructive sleep apnea) Expected: 04/16/2023 (Approximate), Expires: 02/20/2024 [facility] Work Phone: Comment on above: Expected: 04/16/2023 (Approximate), Expi res: 02/20/2024 Start: 04-16-2023 End: 02-20-2024 Cobalamin (Vitamin B12) [Mass/volume] in Serum or Plasma VITAMIN B12 BLOOD Lab Routine Megaloblastic anemia due to vitamin B12 deficiency Elevated sed rate Chronic fatigue and malaise High total serum IgM JOSE RAFAEL (obstructive sleep apnea) Expected: 04/16/2023 (Approximate), Expires: 02/20/2024 [facility] Work Phone: Comment on above: Expected: 04/16/2023 (Approximate), Expi res: 02/20/2024 Start: 04-16-2023 End: 02-20-2024 Comprehensive metabolic 2000 panel - Serum or Plasma COMP METABOLIC PANEL Lab Routine Megaloblastic anemia due to vitamin B12 deficiency Elevated sed rate Chronic fatigue and malaise High total serum IgM JOSE RAFAEL (obstructive sleep apnea) Expected: 04/16/2023 (Approximate), Expires: 02/20/2024 [facility] Work Phone: Comment on above: Expected: 04/16/2023 (Approximate), Expi res: 02/20/2024 Start: 04-16-2023 End: 02-20-2024 Ferritin [Mass/volume] in Serum or Plasma FERRITIN BLD Lab Routine Megaloblastic anemia due to vitamin B12 deficiency Elevated sed rate Chronic fatigue and malaise High total serum IgM JOSE RAFAEL (obstructive sleep apnea) Expected: 04/16/2023 (Approximate), Expires: 02/20/2024 [facility] Work Phone: Comment on above: Expected: 04/16/2023 (Approximate), Expi res: 02/20/2024 Start: 04-16-2023 End: 02-20-2024 Folate [Mass/volume] in Serum or Plasma FOLATE SERUM Lab Routine Megaloblastic anemia due to vitamin B12 deficiency Elevated sed rate Chronic fatigue and malaise High total serum IgM JOSE RAFAEL (obstructive sleep apnea) Expected: 04/16/2023 (Approximate), Expires: 02/20/2024 [facility] Work Phone: Comment on above: Expected: 04/16/2023 (Approximate), Expi res: 02/20/2024 Start: 04-16-2023 End: 02-20-2024 Iron and Iron binding capacity panel - Serum or Plasma IRON + TIBC Lab Routine Megaloblastic anemia due to vitamin B12 deficiency Elevated sed rate Chronic fatigue and malaise High total serum IgM JOSE RAFAEL (obstructive sleep apnea) Expected: 04/16/2023 (Approximate), Expires: 02/20/2024 [facility] Work Phone: Comment on above: Expected: 04/16/2023 (Approximate), Expi res: 02/20/2024 Start: 03-23-2023 COVID-19 Vaccine (3 - Pfizer risk series) COVID-19 Vaccine (3 - Pfizer risk series) [facility] Start: 03-17-2023 Diabetes mellitus screening Diabetes Screening [facility] Start: 03-10-2023 End: 06-09-2023 Insulin [Units/volume] in Serum or Plasma INSULIN ASSAY BLOOD Lab Routine Insulin resistance, unspecified Expected: 03/10/2023, Expires: 06/09/2023 [facility] Work Phone: Comment on above: Expected: 03/10/2023, Expires: 4 Start: 03-10-2023 End: 06-09-2023 INSULIN ANTIBODY BLD INSULIN ANTIBODY BLD Lab Routine Insulin resistance, unspecified Expected: 03/10/2023, Expires: 06/09/2023 [facility] Work Phone: Comment on above: Expected: 03/10/2023, Expires: 4 Start: 02-11-2023 End: 02-08-2024 [id number] [Mass/volume] in Serum or Plasma B2 MICROGLOBULIN B Lab Routine Megaloblastic anemia due to vitamin B12 deficiency High total serum IgM Elevated sed rate Expected: 02/11/2023 (Approximate), Expires: 02/08/2024 [facility] Work Phone: Comment on above: Expected: 02/11/2023 (Approximate), Expi res: 02/08/2024 Start: 02-11-2023 End: 02-08-2024 Calcium.ionized [Moles/volume] in Blood CALCIUM IONIZED BLOOD Lab Routine Megaloblastic anemia due to vitamin B12 deficiency High total serum IgM Elevated sed rate Expected: 02/11/2023 (Approximate), Expires: 02/08/2024 [facility] Work Phone: Comment on above: Expected: 02/11/2023 (Approximate), Expi res: 02/08/2024 Start: 02-11-2023 End: 02-08-2024 CBC W Auto Differential panel - Blood CBC + DIFF Lab Routine Megaloblastic anemia due to vitamin B12 deficiency High total serum IgM Elevated sed rate Expected: 02/11/2023 (Approximate), Expires: 02/08/2024 [facility] Work Phone: Comment on above: Expected: 02/11/2023 (Approximate), Expi res: 02/08/2024 Start: 02-11-2023 End: 02-08-2024 Cobalamin (Vitamin B12) [Mass/volume] in Serum or Plasma VITAMIN B12 BLOOD Lab Routine Megaloblastic anemia due to vitamin B12 deficiency High total serum IgM Elevated sed rate Expected: 02/11/2023 (Approximate), Expires: 02/08/2024 [facility] Work Phone: Comment on above: Expected: 02/11/2023 (Approximate), Expi res: 02/08/2024 Start: 02-11-2023 End: 02-08-2024 Comprehensive metabolic 2000 panel - Serum or Plasma COMP METABOLIC PANEL Lab Routine Megaloblastic anemia due to vitamin B12 deficiency High total serum IgM Elevated sed rate Expected: 02/11/2023 (Approximate), Expires: 02/08/2024 [facility] Work Phone: Comment on above: Expected: 02/11/2023 (Approximate), Expi res: 02/08/2024 Start: 02-11-2023 End: 02-08-2024 Ferritin [Mass/volume] in Serum or Plasma FERRITIN BLD Lab Routine Megaloblastic anemia due to vitamin B12 deficiency High total serum IgM Elevated sed rate Expected: 02/11/2023 (Approximate), Expires: 02/08/2024 [facility] Work Phone: Comment on above: Expected: 02/11/2023 (Approximate), Expi res: 02/08/2024 Start: 02-11-2023 End: 02-08-2024 Folate [Mass/volume] in Serum or Plasma FOLATE SERUM Lab Routine Megaloblastic anemia due to vitamin B12 deficiency High total serum IgM Elevated sed rate Expected: 02/11/2023 (Approximate), Expires: 02/08/2024 [facility] Work Phone: Comment on above: Expected: 02/11/2023 (Approximate), Expi res: 02/08/2024 Start: 02-11-2023 End: 02-08-2024 Iron and Iron binding capacity panel - Serum or Plasma IRON + TIBC Lab Routine Megaloblastic anemia due to vitamin B12 deficiency High total serum IgM Elevated sed rate Expected: 02/11/2023 (Approximate), Expires: 02/08/2024 [facility] Work Phone: Comment on above: Expected: 02/11/2023 (Approximate), Expi res: 02/08/2024 Start: 02-11-2023 End: 04-13-2023 KAPPA/FARMER,FREE,SER KAPPA/FARMER,FREE,SER Lab Routine Megaloblastic anemia due to vitamin B12 deficiency High total serum IgM Elevated sed rate Expected: 02/11/2023 (Approximate), Expires: 04/13/2023 [facility] Work Phone: Comment on above: Expected: 02/11/2023 (Approximate), Expi res: 04/13/2023 Start: 02-11-2023 End: 02-08-2024 Lactate dehydrogenase [Enzymatic activity/volume] in Serum or Plasma LD LACTATE DEHYDRO Lab Routine Megaloblastic anemia due to vitamin B12 deficiency High total serum IgM Elevated sed rate Expected: 02/11/2023 (Approximate), Expires: 02/08/2024 [facility] Work Phone: Comment on above: Expected: 02/11/2023 (Approximate), Expi res: 02/08/2024 Start: 02-11-2023 End: 02-08-2024 MONOCLONAL PROTEIN, SERUM (BLOOD) MONOCLONAL PROTEIN, SERUM (BLOOD) Lab Routine Megaloblastic anemia due to vitamin B12 deficiency High total serum IgM Elevated sed rate Expected: 02/11/2023 (Approximate), Expires: 02/08/2024 [facility] Work Phone: Comment on above: Expected: 02/11/2023 (Approximate), Expi res: 02/08/2024 Start: 02-11-2023 End: 02-08-2024 Phosphate [Mass/volume] in Serum or Plasma PHOSPHORUS INORGANIC Lab Routine Megaloblastic anemia due to vitamin B12 deficiency High total serum IgM Elevated sed rate Expected: 02/11/2023 (Approximate), Expires: 02/08/2024 [facility] Work Phone: Comment on above: Expected: 02/11/2023 (Approximate), Expi res: 02/08/2024 Start: 02-11-2023 End: 02-08-2024 PROTEIN ELECTROPHORESIS SERUM W/INTERP PROTEIN ELECTROPHORESIS SERUM W/INTERP Lab Routine Megaloblastic anemia due to vitamin B12 deficiency High total serum IgM Elevated sed rate Expected: 02/11/2023 (Approximate), Expires: 02/08/2024 [facility] Work Phone: Comment on above: Expected: 02/11/2023 (Approximate), Expi res: 02/08/2024 Start: 02-11-2023 End: 02-08-2024 Urate [Mass/volume] in Serum or Plasma URIC ACID BLOOD Lab Routine Megaloblastic anemia due to vitamin B12 deficiency High total serum IgM Elevated sed rate Expected: 02/11/2023 (Approximate), Expires: 02/08/2024 [facility] Work Phone: Comment on above: Expected: 02/11/2023 (Approximate), Expi res: 02/08/2024 Start: 01-22-2023 Influenza vaccination [facility] Start: 12-17-2022 End: 10-23-2023 CBC W Auto Differential panel - Blood CBC + DIFF Lab Routine Megaloblastic anemia due to vitamin B12 deficiency Expected: 12/17/2022 (Approximate), Expires: 10/23/2023 [facility] Work Phone: Comment on above: Expected: 12/17/2022 (Approximate), Expi res: 10/23/2023 Start: 12-17-2022 End: 10-23-2023 Cobalamin (Vitamin B12) [Mass/volume] in Serum or Plasma VITAMIN B12 BLOOD Lab Routine Megaloblastic anemia due to vitamin B12 deficiency Expected: 12/17/2022 (Approximate), Expires: 10/23/2023 [facility] Work Phone: Comment on above: Expected: 12/17/2022 (Approximate), Expi res: 10/23/2023 Start: 12-17-2022 End: 10-23-2023 Comprehensive metabolic 2000 panel - Serum or Plasma COMP METABOLIC PANEL Lab Routine Megaloblastic anemia due to vitamin B12 deficiency Expected: 12/17/2022 (Approximate), Expires: 10/23/2023 [facility] Work Phone: Comment on above: Expected: 12/17/2022 (Approximate), Expi res: 10/23/2023 Start: 12-17-2022 End: 10-23-2023 Ferritin [Mass/volume] in Serum or Plasma FERRITIN BLD Lab Routine Megaloblastic anemia due to vitamin B12 deficiency Expected: 12/17/2022 (Approximate), Expires: 10/23/2023 [facility] Work Phone: Comment on above: Expected: 12/17/2022 (Approximate), Expi res: 10/23/2023 Start: 12-17-2022 End: 10-23-2023 Folate [Mass/volume] in Serum or Plasma FOLATE SERUM Lab Routine Megaloblastic anemia due to vitamin B12 deficiency Expected: 12/17/2022 (Approximate), Expires: 10/23/2023 [facility] Work Phone: Comment on above: Expected: 12/17/2022 (Approximate), Expi res: 10/23/2023 Start: 12-17-2022 End: 10-23-2023 Iron and Iron binding capacity panel - Serum or Plasma IRON + TIBC Lab Routine Megaloblastic anemia due to vitamin B12 deficiency Expected: 12/17/2022 (Approximate), Expires: 10/23/2023 [facility] Work Phone: Comment on above: Expected: 12/17/2022 (Approximate), Expi res: 10/23/2023 Start: 10-23-2022 End: 12-23-2022 25-hydroxyvitamin D3 [Mass/volume] in Serum or Plasma VITAMIN D 25 HYDROXY Lab Routine Megaloblastic anemia due to vitamin B12 deficiency Elevated sed rate High total serum IgM Chronic fatigue and malaise JOSE RAFAEL (obstructive sleep apnea) Expected: 10/23/2022, Expires: 12/23/2022 [facility] Work Phone: Comment on above: Expected: 10/23/2022, Expires: Start: 10-23-2022 End: 12-23-2022 C reactive protein [Mass/volume] in Serum or Plasma C-REACTIVE PROTEIN (CRP) Lab Routine Megaloblastic anemia due to vitamin B12 deficiency Elevated sed rate High total serum IgM Chronic fatigue and malaise JOSE RAFAEL (obstructive sleep apnea) Expected: 10/23/2022, Expires: 12/23/2022 [facility] Work Phone: Comment on above: Expected: 10/23/2022, Expires: Start: 10-23-2022 End: 12-23-2022 CBC W Auto Differential panel - Blood CBC + DIFF Lab Routine Megaloblastic anemia due to vitamin B12 deficiency Elevated sed rate High total serum IgM Chronic fatigue and malaise JOSE RAFAEL (obstructive sleep apnea) Expected: 10/23/2022, Expires: 12/23/2022 [facility] Work Phone: Comment on above: Expected: 10/23/2022, Expires: Start: 10-23-2022 End: 12-23-2022 Cobalamin (Vitamin B12) [Mass/volume] in Serum or Plasma VITAMIN B12 BLOOD Lab Routine Megaloblastic anemia due to vitamin B12 deficiency Elevated sed rate High total serum IgM Chronic fatigue and malaise JOSE RAFAEL (obstructive sleep apnea) Expected: 10/23/2022, Expires: 12/23/2022 [facility] Work Phone: Comment on above: Expected: 10/23/2022, Expires: Start: 10-23-2022 End: 12-23-2022 Comprehensive metabolic 2000 panel - Serum or Plasma COMP METABOLIC PANEL Lab Routine Megaloblastic anemia due to vitamin B12 deficiency Elevated sed rate High total serum IgM Chronic fatigue and malaise JOSE RAFAEL (obstructive sleep apnea) Expected: 10/23/2022, Expires: 12/23/2022 [facility] Work Phone: Comment on above: Expected: 10/23/2022, Expires: 3 Start: 10-23-2022 End: 12-23-2022 Erythrocyte sedimentation rate SED RATE WESTERGREN Lab Routine Megaloblastic anemia due to vitamin B12 deficiency Elevated sed rate High total serum IgM Chronic fatigue and malaise JOSE RAFAEL (obstructive sleep apnea) Expected: 10/23/2022, Expires: 12/23/2022 [facility] Work Phone: Comment on above: Expected: 10/23/2022, Expires: Start: 10-23-2022 End: 12-23-2022 Lactate dehydrogenase [Enzymatic activity/volume] in Serum or Plasma LD LACTATE DEHYDRO Lab Routine Megaloblastic anemia due to vitamin B12 deficiency Elevated sed rate High total serum IgM Chronic fatigue and malaise JOSE RAFAEL (obstructive sleep apnea) Expected: 10/23/2022, Expires: 12/23/2022 [facility] Work Phone: Comment on above: Expected: 10/23/2022, Expires: Start: 10-23-2022 End: 12-23-2022 MONOCLONAL PROTEIN, SERUM (BLOOD) MONOCLONAL PROTEIN, SERUM (BLOOD) Lab Routine Megaloblastic anemia due to vitamin B12 deficiency Elevated sed rate High total serum IgM Chronic fatigue and malaise JOSE RAFAEL (obstructive sleep apnea) Expected: 10/23/2022, Expires: 12/23/2022 [facility] Work Phone: Comment on above: Expected: 10/23/2022, Expires: Start: 10-23-2022 End: 12-23-2022 PROT ELECT SERUM WITH DANA AND INTERP PROT ELECT SERUM WITH DANA AND INTERP Lab Routine Megaloblastic anemia due to vitamin B12 deficiency Elevated sed rate High total serum IgM Chronic fatigue and malaise JOSE RAFAEL (obstructive sleep apnea) Expected: 10/23/2022, Expires: 12/23/2022 [facility] Work Phone: Comment on above: Expected: 10/23/2022, Expires: 3 Start: 09-19-2022 End: 08-20-2023 CBC panel - Blood by Automated count CBC Lab Routine Anemia of chronic disease Expected: 09/19/2022 (Approximate), Expires: 08/20/2023 [facility] Work Phone: Comment on above: Expected: 09/19/2022 (Approximate), Expi res: 08/20/2023 Start: 09-19-2022 End: 08-20-2023 Comprehensive metabolic 2000 panel - Serum or Plasma COMP METABOLIC PANEL Lab Routine Elevated LFTs Expected: 09/19/2022 (Approximate), Expires: 08/20/2023 [facility] Work Phone: Comment on above: Expected: 09/19/2022 (Approximate), Expi res: 08/20/2023 Start: 09-19-2022 End: 11-19-2022 TPMT PHENOTYPE/ENZYME ACTIVITY TPMT PHENOTYPE/ENZYME ACTIVITY Lab Routine 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 Expected: 09/19/2022 (Approximate), Expires: 11/19/2022 [facility] Work Phone: Comment on above: Expected: 09/19/2022 (Approximate), Expi res: 11/19/2022 Start: 08-28-2022 End: 10-28-2022 25-hydroxyvitamin D3 [Mass/volume] in Serum or Plasma VITAMIN D 25 HYDROXY Lab Routine Megaloblastic anemia due to vitamin B12 deficiency Elevated sed rate High total serum IgM Chronic fatigue and malaise Expected: 08/28/2022 (Approximate), Expires: 10/28/2022 [facility] Work Phone: Comment on above: Expected: 08/28/2022 (Approximate), Expi res: 10/28/2022 Start: 08-28-2022 End: 07-26-2023 [id number] [Mass/volume] in Serum or Plasma B2 MICROGLOBULIN B Lab Routine Megaloblastic anemia due to vitamin B12 deficiency Elevated sed rate High total serum IgM Chronic fatigue and malaise Expected: 08/28/2022 (Approximate), Expires: 07/26/2023 [facility] Work Phone: Comment on above: Expected: 08/28/2022 (Approximate), Expi res: 07/26/2023 Start: 08-28-2022 End: 10-28-2022 C reactive protein [Mass/volume] in Serum or Plasma C-REACTIVE PROTEIN (CRP) Lab Routine Megaloblastic anemia due to vitamin B12 deficiency Elevated sed rate High total serum IgM Chronic fatigue and malaise Expected: 08/28/2022 (Approximate), Expires: 10/28/2022 [facility] Work Phone: Comment on above: Expected: 08/28/2022 (Approximate), Expi res: 10/28/2022 Start: 08-28-2022 End: 07-26-2023 Calcium.ionized [Moles/volume] in Blood CALCIUM IONIZED BLOOD Lab Routine Megaloblastic anemia due to vitamin B12 deficiency Elevated sed rate High total serum IgM Chronic fatigue and malaise Expected: 08/28/2022 (Approximate), Expires: 07/26/2023 [facility] Work Phone: Comment on above: Expected: 08/28/2022 (Approximate), Expi res: 07/26/2023 Start: 08-28-2022 End: 07-26-2023 CBC W Auto Differential panel - Blood CBC + DIFF Lab Routine Megaloblastic anemia due to vitamin B12 deficiency Elevated sed rate High total serum IgM Chronic fatigue and malaise Expected: 08/28/2022 (Approximate), Expires: 07/26/2023 [facility] Work Phone: Comment on above: Expected: 08/28/2022 (Approximate), Expi res: 07/26/2023 Start: 08-28-2022 End: 10-28-2022 Cobalamin (Vitamin B12) [Mass/volume] in Serum or Plasma VITAMIN B12 BLOOD Lab Routine Megaloblastic anemia due to vitamin B12 deficiency Elevated sed rate High total serum IgM Chronic fatigue and malaise Expected: 08/28/2022 (Approximate), Expires: 10/28/2022 [facility] Work Phone: Comment on above: Expected: 08/28/2022 (Approximate), Expi res: 10/28/2022 Start: 08-28-2022 End: 07-26-2023 Comprehensive metabolic 2000 panel - Serum or Plasma COMP METABOLIC PANEL Lab Routine Megaloblastic anemia due to vitamin B12 deficiency Elevated sed rate High total serum IgM Chronic fatigue and malaise Expected: 08/28/2022 (Approximate), Expires: 07/26/2023 [facility] Work Phone: Comment on above: Expected: 08/28/2022 (Approximate), Expi res: 07/26/2023 Start: 08-28-2022 End: 10-28-2022 Erythrocyte sedimentation rate SED RATE WESTERGREN Lab Routine Megaloblastic anemia due to vitamin B12 deficiency Elevated sed rate High total serum IgM Chronic fatigue and malaise Expected: 08/28/2022 (Approximate), Expires: 10/28/2022 [facility] Work Phone: Comment on above: Expected: 08/28/2022 (Approximate), Expi res: 10/28/2022 Start: 08-28-2022 End: 10-28-2022 KAPPA/FARMER,FREE,SER KAPPA/FARMER,FREE,SER Lab Routine Megaloblastic anemia due to vitamin B12 deficiency Elevated sed rate High total serum IgM Chronic fatigue and malaise Expected: 08/28/2022 (Approximate), Expires: 10/28/2022 [facility] Work Phone: Comment on above: Expected: 08/28/2022 (Approximate), Expi res: 10/28/2022 Start: 08-28-2022 End: 07-26-2023 Lactate dehydrogenase [Enzymatic activity/volume] in Serum or Plasma LD LACTATE DEHYDRO Lab Routine Megaloblastic anemia due to vitamin B12 deficiency Elevated sed rate High total serum IgM Chronic fatigue and malaise Expected: 08/28/2022 (Approximate), Expires: 07/26/2023 [facility] Work Phone: Comment on above: Expected: 08/28/2022 (Approximate), Expi res: 07/26/2023 Start: 08-28-2022 End: 07-26-2023 MONOCLONAL PROTEIN, SERUM (BLOOD) MONOCLONAL PROTEIN, SERUM (BLOOD) Lab Routine Megaloblastic anemia due to vitamin B12 deficiency Elevated sed rate High total serum IgM Chronic fatigue and malaise Expected: 08/28/2022 (Approximate), Expires: 07/26/2023 [facility] Work Phone: Comment on above: Expected: 08/28/2022 (Approximate), Expi res: 07/26/2023 Start: 08-28-2022 End: 07-26-2023 Phosphate [Mass/volume] in Serum or Plasma PHOSPHORUS INORGANIC Lab Routine Megaloblastic anemia due to vitamin B12 deficiency Elevated sed rate High total serum IgM Chronic fatigue and malaise Expected: 08/28/2022 (Approximate), Expires: 07/26/2023 [facility] Work Phone: Comment on above: Expected: 08/28/2022 (Approximate), Expi res: 07/26/2023 Start: 08-28-2022 End: 07-26-2023 PROTEIN ELECTROPHORESIS SERUM W/INTERP PROTEIN ELECTROPHORESIS SERUM W/INTERP Lab Routine Megaloblastic anemia due to vitamin B12 deficiency Elevated sed rate High total serum IgM Chronic fatigue and malaise Expected: 08/28/2022 (Approximate), Expires: 07/26/2023 [facility] Work Phone: Comment on above: Expected: 08/28/2022 (Approximate), Expi res: 07/26/2023 Start: 08-28-2022 End: 07-26-2023 Urate [Mass/volume] in Serum or Plasma URIC ACID BLOOD Lab Routine Megaloblastic anemia due to vitamin B12 deficiency Elevated sed rate High total serum IgM Chronic fatigue and malaise Expected: 08/28/2022 (Approximate), Expires: 07/26/2023 [facility] Work Phone: Comment on above: Expected: 08/28/2022 (Approximate), Expi res: 07/26/2023 Start: 07-15-2022 End: 05-20-2023 [id number] [Mass/volume] in Serum or Plasma B2 MICROGLOBULIN B Lab Routine High total serum IgM Expected: 07/15/2022 (Approximate), Expires: 05/20/2023 [facility] Work Phone: Comment on above: Expected: 07/15/2022 (Approximate), Expi res: 05/20/2023 Start: 07-15-2022 End: 05-20-2023 Calcium.ionized [Moles/volume] in Blood CALCIUM IONIZED BLOOD Lab Routine High total serum IgM Expected: 07/15/2022 (Approximate), Expires: 05/20/2023 [facility] Work Phone: Comment on above: Expected: 07/15/2022 (Approximate), Expi res: 05/20/2023 Start: 07-15-2022 End: 05-20-2023 CBC W Auto Differential panel - Blood CBC + DIFF Lab Routine High total serum IgM Expected: 07/15/2022 (Approximate), Expires: 05/20/2023 [facility] Work Phone: Comment on above: Expected: 07/15/2022 (Approximate), Expi res: 05/20/2023 Start: 07-15-2022 End: 05-20-2023 Comprehensive metabolic 2000 panel - Serum or Plasma COMP METABOLIC PANEL Lab Routine High total serum IgM Expected: 07/15/2022 (Approximate), Expires: 05/20/2023 [facility] Work Phone: Comment on above: Expected: 07/15/2022 (Approximate), Expi res: 05/20/2023 Start: 07-15-2022 End: 09-14-2022 KAPPA/FARMER,FREE,SER KAPPA/FARMER,FREE,SER Lab Routine High total serum IgM Expected: 07/15/2022 (Approximate), Expires: 09/14/2022 [facility] Work Phone: Comment on above: Expected: 07/15/2022 (Approximate), Expi res: 09/14/2022 Start: 07-15-2022 End: 05-20-2023 Lactate dehydrogenase [Enzymatic activity/volume] in Serum or Plasma LD LACTATE DEHYDRO Lab Routine High total serum IgM Expected: 07/15/2022 (Approximate), Expires: 05/20/2023 [facility] Work Phone: Comment on above: Expected: 07/15/2022 (Approximate), Expi res: 05/20/2023 Start: 07-15-2022 End: 05-20-2023 MONOCLONAL PROTEIN, SERUM (BLOOD) MONOCLONAL PROTEIN, SERUM (BLOOD) Lab Routine High total serum IgM Expected: 07/15/2022 (Approximate), Expires: 05/20/2023 [facility] Work Phone: Comment on above: Expected: 07/15/2022 (Approximate), Expi res: 05/20/2023 Start: 07-15-2022 End: 05-20-2023 Phosphate [Mass/volume] in Serum or Plasma PHOSPHORUS INORGANIC Lab Routine High total serum IgM Expected: 07/15/2022 (Approximate), Expires: 05/20/2023 [facility] Work Phone: Comment on above: Expected: 07/15/2022 (Approximate), Expi res: 05/20/2023 Start: 07-15-2022 End: 05-20-2023 PROTEIN ELECTROPHORESIS SERUM W/INTERP PROTEIN ELECTROPHORESIS SERUM W/INTERP Lab Routine High total serum IgM Expected: 07/15/2022 (Approximate), Expires: 05/20/2023 [facility] Work Phone: Comment on above: Expected: 07/15/2022 (Approximate), Expi res: 05/20/2023 Start: 07-15-2022 End: 05-20-2023 Urate [Mass/volume] in Serum or Plasma URIC ACID BLOOD Lab Routine High total serum IgM Expected: 07/15/2022 (Approximate), Expires: 05/20/2023 [facility] Work Phone: Comment on above: Expected: 07/15/2022 (Approximate), Expi res: 05/20/2023 Start: 06-05-2022 End: 03-05-2023 25-hydroxyvitamin D3 [Mass/volume] in Serum or Plasma VITAMIN D 25 HYDROXY Lab Routine Vitamin D deficiency Expected: 06/05/2022 (Approximate), Expires: 03/05/2023 [facility] Work Phone: Comment on above: Expected: 06/05/2022 (Approximate), Expi res: 03/05/2023 Start: 06-05-2022 End: 03-05-2023 C reactive protein [Mass/volume] in Serum or Plasma C-REACTIVE PROTEIN (CRP) Lab Routine Elevated sed rate Elevated C-reactive protein (CRP) Expected: 06/05/2022 (Approximate), Expires: 03/05/2023 [facility] Work Phone: Comment on above: Expected: 06/05/2022 (Approximate), Expi res: 03/05/2023 Start: 06-05-2022 End: 03-05-2023 Cobalamin (Vitamin B12) [Mass/volume] in Serum or Plasma VITAMIN B12 BLOOD Lab Routine Vitamin B12 deficiency Expected: 06/05/2022 (Approximate), Expires: 03/05/2023 [facility] Work Phone: Comment on above: Expected: 06/05/2022 (Approximate), Expi res: 03/05/2023 Start: 06-05-2022 End: 03-05-2023 Erythrocyte sedimentation rate SED RATE WESTERGREN Lab Routine Elevated sed rate Elevated C-reactive protein (CRP) Expected: 06/05/2022 (Approximate), Expires: 03/05/2023 [facility] Work Phone: Comment on above: Expected: 06/05/2022 (Approximate), Expi res: 03/05/2023 Start: 05-06-2022 End: 03-18-2023 [id number] [Mass/volume] in Serum or Plasma B2 MICROGLOBULIN B Lab Routine Megaloblastic anemia due to vitamin B12 deficiency High total serum IgM Expected: 05/06/2022 (Approximate), Expires: 03/18/2023 [facility] Work Phone: Comment on above: Expected: 05/06/2022 (Approximate), Expi res: 03/18/2023 Start: 05-06-2022 End: 03-18-2023 Calcium.ionized [Moles/volume] in Blood CALCIUM IONIZED BLOOD Lab Routine Megaloblastic anemia due to vitamin B12 deficiency High total serum IgM Expected: 05/06/2022 (Approximate), Expires: 03/18/2023 [facility] Work Phone: Comment on above: Expected: 05/06/2022 (Approximate), Expi res: 03/18/2023 Start: 05-06-2022 End: 03-18-2023 CBC W Auto Differential panel - Blood CBC + DIFF Lab Routine Megaloblastic anemia due to vitamin B12 deficiency High total serum IgM Expected: 05/06/2022 (Approximate), Expires: 03/18/2023 [facility] Work Phone: Comment on above: Expected: 05/06/2022 (Approximate), Expi res: 03/18/2023 Start: 05-06-2022 End: 03-18-2023 Comprehensive metabolic 2000 panel - Serum or Plasma COMP METABOLIC PANEL Lab Routine Megaloblastic anemia due to vitamin B12 deficiency High total serum IgM Expected: 05/06/2022 (Approximate), Expires: 03/18/2023 [facility] Work Phone: Comment on above: Expected: 05/06/2022 (Approximate), Expi res: 03/18/2023 Start: 05-06-2022 End: 03-18-2023 Ferritin [Mass/volume] in Serum or Plasma FERRITIN BLD Lab Routine Megaloblastic anemia due to vitamin B12 deficiency High total serum IgM Expected: 05/06/2022 (Approximate), Expires: 03/18/2023 [facility] Work Phone: Comment on above: Expected: 05/06/2022 (Approximate), Expi res: 03/18/2023 Start: 05-06-2022 End: 03-18-2023 Iron and Iron binding capacity panel - Serum or Plasma IRON + TIBC Lab Routine Megaloblastic anemia due to vitamin B12 deficiency High total serum IgM Expected: 05/06/2022 (Approximate), Expires: 03/18/2023 [facility] Work Phone: Comment on above: Expected: 05/06/2022 (Approximate), Expi res: 03/18/2023 Start: 05-06-2022 End: 03-18-2023 Lactate dehydrogenase [Enzymatic activity/volume] in Serum or Plasma LD LACTATE DEHYDRO Lab Routine Megaloblastic anemia due to vitamin B12 deficiency High total serum IgM Expected: 05/06/2022 (Approximate), Expires: 03/18/2023 [facility] Work Phone: Comment on above: Expected: 05/06/2022 (Approximate), Expi res: 03/18/2023 Start: 05-06-2022 End: 03-18-2023 MONOCLONAL PROTEIN, SERUM (BLOOD) MONOCLONAL PROTEIN, SERUM (BLOOD) Lab Routine Megaloblastic anemia due to vitamin B12 deficiency High total serum IgM Expected: 05/06/2022 (Approximate), Expires: 03/18/2023 [facility] Work Phone: Comment on above: Expected: 05/06/2022 (Approximate), Expi res: 03/18/2023 Start: 05-06-2022 End: 03-18-2023 Phosphate [Mass/volume] in Serum or Plasma PHOSPHORUS INORGANIC Lab Routine Megaloblastic anemia due to vitamin B12 deficiency High total serum IgM Expected: 05/06/2022 (Approximate), Expires: 03/18/2023 [facility] Work Phone: Comment on above: Expected: 05/06/2022 (Approximate), Expi res: 03/18/2023 Start: 05-06-2022 End: 03-18-2023 PROTEIN ELECTROPHORESIS SERUM W/INTERP PROTEIN ELECTROPHORESIS SERUM W/INTERP Lab Routine Megaloblastic anemia due to vitamin B12 deficiency High total serum IgM Expected: 05/06/2022 (Approximate), Expires: 03/18/2023 [facility] Work Phone: Comment on above: Expected: 05/06/2022 (Approximate), Expi res: 03/18/2023 Start: 05-06-2022 End: 03-18-2023 Urate [Mass/volume] in Serum or Plasma URIC ACID BLOOD Lab Routine Megaloblastic anemia due to vitamin B12 deficiency High total serum IgM Expected: 05/06/2022 (Approximate), Expires: 03/18/2023 [facility] Work Phone: Comment on above: Expected: 05/06/2022 (Approximate), Expi res: 03/18/2023 Start: 04-05-2022 COVID-19 VACCINE (5 - Pfizer risk series) COVID-19 VACCINE (5 - Pfizer risk series) [facility] Start: 03-09-2022 End: 05-09-2022 Hemoglobin A1c in Blood HGB A1C Lab Routine Elevated glucose Expected: 03/09/2022, Expires: 05/09/2022 [facility] Work Phone: Comment on above: Expected: 03/09/2022, Expires: 2 Start: 02-24-2022 End: 04-26-2022 BARTONELLA AB PANEL BARTONELLA AB PANEL Lab Routine Swelling of lymph nodes Expected: 02/24/2022, Expires: 04/26/2022 [facility] Work Phone: Comment on above: Expected: 02/24/2022, Expires: 2 Start: 02-24-2022 End: 04-26-2022 BRUCELLA AB TOTAL BRUCELLA AB TOTAL Lab Routine Swelling of lymph nodes Expected: 02/24/2022, Expires: 04/26/2022 [facility] Work Phone: Comment on above: Expected: 02/24/2022, Expires: 2 Start: 02-24-2022 End: 04-26-2022 Cryptococcus sp Ag [Presence] in Unspecified specimen by Latex agglutination CRYPTOCOCCUS AG DET Microbiology Routine Swelling of lymph nodes Expected: 02/24/2022, Expires: 04/26/2022 [facility] Work Phone: Comment on above: Expected: 02/24/2022, Expires: 2 Start: 02-24-2022 End: 04-26-2022 HISTOPLASMA AG URINE HISTOPLASMA AG URINE Lab Routine Swelling of lymph nodes Expected: 02/24/2022, Expires: 04/26/2022 [facility] Work Phone: Comment on above: Expected: 02/24/2022, Expires: 2 Start: 02-24-2022 End: 04-26-2022 HIV 1 RNA [#/volume] (viral load) in Serum or Plasma by YESSI with probe detection HIV RNA VIRAL LOAD Lab Routine Swelling of lymph nodes Expected: 02/24/2022, Expires: 04/26/2022 [facility] Work Phone: Comment on above: Expected: 02/24/2022, Expires: 2 Start: 02-24-2022 End: 04-26-2022 SYPHILIS TOTAL W/REFLEX SYPHILIS TOTAL W/REFLEX Lab Routine Swelling of lymph nodes Expected: 02/24/2022, Expires: 04/26/2022 [facility] Work Phone: Comment on above: Expected: 02/24/2022, Expires: Start: 01-22-2022 Influenza vaccination [facility] Start: 08-24-2021 COVID-19 VACCINE (4 - Booster for Pfizer series) COVID-19 VACCINE (4 - Booster for Pfizer series) [facility] Start: 01-22-2021 Influenza vaccination Flu vaccine (Season Ended) [facility] Work Phone: Start: 2020 Lipid panel Lipid screen [facility] Work Phone: Start: 2020 Mammography [facility] Start: 2020 Screening for malignant neoplasm of breast [facility] Start: 2010 HPV TESTING HPV TESTING [facility] Start: 2010 Screening for malignant neoplasm of cervix [facility] Start: 10-05-2007 HPV Vaccine (1 - Risk 3-dose SCDM series) HPV Vaccine (1 - Risk 3-dose SCDM series) [facility] Start: 2002 DTaP/Tdap/Td Vaccines (1 - Tdap) DTaP/Tdap/Td Vaccines (1 - Tdap) [facility] Start: 2001 PAP TESTING PAP TESTING [facility] Start: 2001 Screening for malignant neoplasm of cervix [facility] Start: 10-05-1999 DTaP,Tdap and Td Vaccines (1 - Tdap) DTaP,Tdap and Td Vaccines (1 - Tdap) [facility] Start: 10-05-1999 DTaP/Tdap/Td vaccine (1 - Tdap) DTaP/Tdap/Td vaccine (1 - Tdap) [facility] Work Phone: Start: 10-05-1999 Hepatitis B Vaccine (1 of 3 - 19+ 3-dose series) Hepatitis B Vaccine (1 of 3 - 19+ 3-dose series) [facility] Start: 10-05-1999 Hepatitis B Vaccines (1 of 3 - 19+ 3-dose series) Hepatitis B Vaccines (1 of 3 - 19+ 3-dose series) [facility] Start: 10-05-1999 Pneumococcal vaccination Pneumococcal Vaccine (1 of 2 - PCV) [facility] Start: 10-05-1999 Pneumococcal Vaccine: Pediatrics and At-Risk Adult Patients (1 of 2 - PCV) Pneumococcal Vaccine: Pediatrics and At-Risk Adult Patients (1 of 2 - PCV) [facility] Start: 10-05-1999 SHINGRIX VACCINE (1 of 2) [facility]INGRIX VACCINE (1 of 2) [facility] Start: 10-05-1999 Urine microalbumin profile [facility] Start: 10-05-1999 Zoster Vaccines (1 of 2) Zoster Vaccines (1 of 2) [facility] Start: 1998 Adult BMI Follow Up Plan Adult BMI Follow Up Plan [facility] Start: 1998 Adult BMI Screening Adult BMI Screening [facility] Start: 1998 Anxiety Screening Anxiety Screening [facility] Start: 1998 Hepatitis C screening Hepatitis C Screening [facility] Start: 1998 HIV SCREENING HIV SCREENING [facility] Start: 1998 HIV screening HIV Screening [facility] Start: 10-05-1995 HIV screening HIV screen [facility] Phone: Start: 1993 Varicella vaccination Varicella Vaccines (1 of 2 - 13+ 2-dose series) [facility] Start: 1992 COVID-19 Vaccine (1) COVID-19 Vaccine (1) [facility] Phone: Start: 1992 Depression Screening Depression Screening [facility] Start: 1992 Tobacco Screening Tobacco Screening [facility] Start: 10-05-1991 Screening for malignant neoplasm of cervix Cervical Cancer Screening [facility] Start: 1986 PNEUMOCOCCAL (1 - PCV) PNEUMOCOCCAL (1 - PCV) [facility] Start: 1986 Pneumococcal vaccination [facility] Start: 1986 Pneumococcal Vaccine: Pediatrics (0 to 5 Years) and At-Risk Patients (6 to 64 Years) (1 - PCV) Pneumococcal Vaccine: Pediatrics (0 to 5 Years) and At-Risk Patients (6 to 64 Years) (1 - PCV) [facility] Start: 1981 MMR Vaccines (1 of 1 - Standard series) MMR Vaccines (1 of 1 - Standard series) [facility] Start: 1981 Varicella vaccination Varicella Vaccines (1 of 2 - 2-dose childhood series) [facility] Start: 1981 Varicella vaccine (1 of 2 - 2-dose childhood series) Varicella vaccine (1 of 2 - 2-dose childhood series) [facility] Start: 1980 HEPATITIS B (1 of 3 - 3-dose series) HEPATITIS B (1 of 3 - 3-dose series) [facility] Start: 1980 Hepatitis B Vaccine (1 of 3 - 3-dose series) Hepatitis B Vaccine (1 of 3 - 3-dose series) [facility] Start: 1980 Hepatitis B Vaccines (1 of 3 - 3-dose series) Hepatitis B Vaccines (1 of 3 - 3-dose series) [facility] Start: 1980 Hepatitis C screening [facility]atitis [facility] Start: 1980 HIV screening HIV Screening [facility] Start: 1980 HPV Vaccine: Recommended Based On Risk HPV Vaccine: Recommended Based On Risk [facility] Start: 1980 Lipid panel Lipid Panel [facility] Start: 1980 Screening for osteoporosis Bone Density Scan [facility] Start: 1980 Tobacco Counseling Tobacco Counseling [facility] Start: 1980 Yearly Adult Physical Yearly Adult Physical [facility] 25-hydroxyvitamin D3 [Mass/volume] in Serum or Plasma VITAMIN D 25 HYDROXY Lab Routine Vitamin D deficiency 01/11/2025 1:48 PM EDT [facility] AEROBIC CULTURE AEROBIC CULTURE Lab Routine 03/02/2025 5:17 PM EDT [facility] Work Phone: ANAEROBIC CULTURE ANAEROBIC CULT URE Lab Routine 03/02/2025 5:17 PM EDT [facility] Bacteria identified in Unspecified specimen by Aerobe culture [facility] Bacteria identified in Unspecified specimen by Anaerobe culture [facility] BLOOD TB SCREEN BLOOD TB SCREEN Lab Routine Screening-pulmonary TB 01/11/2025 1:48 PM EDT [facility] C reactive protein [Mass/volume] in Serum or Plasma C-REACTIVE PROTEIN Lab Routine Elevated sed rate Elevated C-reactive protein (CRP) 01/11/2025 1:48 PM EDT [facility] Cardiovascular funct ion eval w/tilt table w/mntr TILT TABLE EVALUATION Cardiology Routine POTS (postural orthostatic tachycardia syndrome) Ordered: 03/09/2022 [facility] Work Phone: Comment on above: Ordered: 03/09/2022 CBC W Auto Different ial panel - Blood CBC and differential Lab Routine Menorrhagia with regular cycle Ordered: 03/23/2024 [facility] Work Phone: Comment on above: Ordered: 03/23/2024 Chronic hepatitis differentiation between hepatitis B and C virus panel - Serum or Plasma HEP REMOTE PANEL BL Lab Routine Elevated LFTs 01/11/2025 1:48 PM EDT [facility] Cobalamin (Vitamin B 12) [Mass/volume] in Serum or Plasma VITAMIN B12 Lab Routine Vitamin B12 deficiency 01/11/2025 1:48 PM EDT [facility] CT Abdomen W contrast IV [facility] End: 03-05-2024 DXA-AXIAL SKELETON DXA-AXIAL SKELETON Radiology Routine Steroid-induced osteoporosis 1 Occurrences starting 02/04/2023 until 03/05/2024 [facility] Work Phone: Comment on above: 1 Occurrences starting 02/04/2023 until 03/05/2024 End: 03-05-2024 DXA-FOREARM SKELETON DXA-FOREARM SKELETON Radiology Routine Steroid-induced osteoporosis 1 Occurrences starting 02/04/2023 until 03/05/2024 [facility] Work Phone: Comment on above: 1 Occurrences starting 02/04/2023 until 03/05/2024 ECG 12 Lead ECG 12 Lead ECG Routine Irregular heart rate 06/09/2023 8:28 AM EST [facility] Work Phone: Erythrocyte sediment ation rate SEDIMENTATION RATE, WESTERGREN Lab Routine Elevated sed rate Elevated C-reactive protein (CRP) 01/11/2025 1:48 PM EDT [facility] Work Phone: hCG, quantitative, hCG, quantitative, Lab Routine Menorrhagia with regular cycle Ordered: 03/23/2024 [facility] Comment on above: Ordered: 03/23/2024 Hemoglobin A1c/Hemoglobin.total in Blood Hemoglobin A1c Lab Routine Menorrhagia with regular cycle Ordered: 03/23/2024 [facility] Comment on above: Ordered: 03/23/2024 Hepatitis B virus co re Ab [Presence] in Serum HEPATITIS B CORE ANTIBODY TOTAL Lab Routine Elevated LFTs 01/11/2025 1:48 PM EDT [facility] Hepatitis B virus galarza rface Ab [Presence] in Serum HEPATITIS B SURFACE ANTIBODY Lab Routine Elevated LFTs 01/11/2025 1:48 PM EDT [facility] Hepatitis B virus galarza rface Ag [Presence] in Serum HEPATITIS B SURFACE ANTIGEN Lab Routine Elevated LFTs 01/11/2025 1:48 PM EDT [facility] Hepatitis C virus Ab [Presence] in Serum HEPATITIS C ANTIBODY IA WITH CONFIRMATION Lab Routine Elevated LFTs 01/11/2025 1:48 PM EDT [facility] End: 03-09-2023 HOME SLEEP APNEA TEST (HSAT) HOME SLEEP APNEA TEST (HSAT) Procedures Routine Somnolence, daytime Snoring 1 Occurrences starting 03/09/2022 until 03/09/2023 [facility] Work Phone: Comment on above: 1 Occurrences starting 03/09/2022 until 03/09/2023 HYDROGEN BREATH TEST B/O HYDROGE N BREATH TEST B/O Procedures Routine Diarrhea, unspecified type Abdominal pressure Ordered: 06/14/2024 [facility] Work Phone: Comment on above: Ordered: 06/14/2024 Oxygen therapy [[facility] Data Set] Initiate Oxygen Therapy Protocol Respiratory Care Routine Daily until discontinued starting 10/07/2020 [facility] Work Phone: Comment on above: Daily until discontinued starting 2020 Patient Education [facility] Work Phone: Patient referral [facility] Work Phone: End: 03-04-2023 Polysomnogram POLYSOMNOGRAM (PSG) Procedures Routine Somnolence, daytime Snoring 1 Occurrences starting 03/04/2022 until 03/04/2023 [facility] Work Phone: Comment on above: 1 Occurrences starting 03/04/2022 until 03/04/2023 Prothrombin time (PT ) in Blood by Coagulation assay Protime-INR Lab Routine Menorrhagia with regular cycle Ordered: 03/23/2024 [facility] Comment on above: Ordered: 03/23/2024 THIN PREP TIS PAP AN D HR HPV DNA THIN PREP TIS PAP AND HR HPV DNA Pathology and Cytology Routine Well woman exam with routine gynecological exam Ordered: 06/06/2024 [facility] Comment on above: Ordered: 06/06/2024 Thyrotropin [Units/v olume] in Serum or Plasma TSH Lab Routine Menorrhagia with regular cycle Ordered: 03/23/2024 [facility] Comment on above: Ordered: 03/23/2024 Thyroxine (T4) free [Mass/volume] in Serum or Plasma T4, free Lab Routine Menorrhagia with regular cycle Ordered: 03/23/2024 [facility] Comment on above: Ordered: 03/23/2024 XR Thoracic spine 3 Views [facility] Immunizations Immunization Date Immunization Notes Care Provider Reginaldo mcginnis 02-23-2023 COVID-19 vaccine, ag e 12+ yr, 2022- season (PFIZER-BIONTGeneral Sentiment) Lynne Ni MD Work Phone: [facility] 02-08-2022 COVID-19 mRNA Bivale nt Booster (Pfizer) 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 2017 Medicaid (Managed Care) [employer] [id number] 2017 Private Health Insurance [employer] [id number] 2017 Unknown [employer] [id number] 2017-Present [address] [place] [address] [id number] 2009 Medicaid [employer] [id number] 2009-Present [phone] [address] [place] [address] Medicaid [id number] 2009 Medicaid [id number]. [id number] 1980 Unknown [id number] 2.16.840.1.027197.3.579.2. 185 1980 Unknown [id number] 2.16.840.1.867516.3.579.2. 175 1980 Unknown [id number] 2.16.840.1.289941.3.579.2. 593 1980 Unknown [id number] 2.16.840.1.132358.3.579.2. 593 1980 Unknown [id number] 2.16.840.1.086594.3.579.2. 593 1980 Unknown [id number] 2.16.840.1.250077.3.579.2. 593 1980 Unknown [id number] 2.16.840.1.619328.3.579.2. 59 1980 Unknown [id number] 2.16.840.1.004661.3.579.2. 59 1980 Unknown [id number] 2.16.840.1.971148.3.579.2. 59 1980 Unknown [id number] 2.16.840.1.854579.3.579.2. 59 1980 Unknown [id number] 2.16.840.1.661541.3.579.2. 1980 Unknown [id number] 2.16.840.1.909258.3.579.2. 1980 Unknown [id number] 2.16.840.1.204202.3.579.2. 124 1980 Unknown [id number] 2.16.840.1.890885.3.579.2. 1243 1980 Unknown [id number] 2.16.840.1.411330.3.579.2. 1258 1980 Unknown [id number] 2.16.840.1.900392.3.579.2. 1258 1980 Unknown [id number] 2.16.840.1.155385.3.579.2. 1258 1980 Unknown [id number] 2.16.840.1.535604.3.579.2. 1258 1980 Unknown [id number] 2.16.840.1.622271.3.579.2. 1258 1980 Unknown [id number] 2.16.840.1.581299.3.579.2. 1258 1980 Unknown [id number] 2.16.840.1.734583.3.579.2. 1258 1980 Unknown [id number] 2.16.840.1.860983.3.579.2. 1259 1980 Unknown [id number] 2.16.840.1.668462.3.579.2. 1259 1980 Unknown [id number] 2.16.840.1.364814.3.579.2. 1259 1980 Unknown [id number] 2.16.840.1.806449.3.579.2. 1259 1959 Unknown [id number] 1959 Unknown [id number] Unknown [id number] 2.16.840.1.575613.3.579.2. 531 Unknown [id number] 2.16.840.1.035188.3.579.2. 531 Unknown [id number] 2.16.840.1.014526.3.579.2. 531 Unknown [id number] 2.16.840.1.962124.3.579.2. 531 Unknown [id number] 2.16.840.1.937882.3.579.2. 531 Unknown [id number] 2.16.840.1.953663.3.579.2. 531 Social History Date Type Detail Facility Start: 10-07-2020 End: 03-02-2025 Tobacco smoking status [facility] Current every day smoker [facility] Start: 10-07-2020 End: 11-08-2023 Tobacco use and exposure Never used [facility] Start: 10-07-2020 End: 02-28-2025 Alcohol intake Lifetime non-drinker (finding) [facility] Phone: Start: 10-07-2020 History SDOH Alcohol Frequency 1 [facility] Phone: Start: 1980 Sex Assigned At Not on file [facility] [employer] Phone: Start: 02-22-2022 End: 07-26-2024 Exposure to SARS-CoV-2 (event) Not sure [facility] Start: 05-24-1995 History of tobacco use Cigarette Smo ker [facility] Start: 05-31-2014 End: 02-28-2025 Cigarettes smoked current (pack per day) - Reported 1 [facility] Start: 10-24-2021 End: 11-29-2024 Alcohol intake Current non-drinker of alcohol (finding) [facility] Start: 10-14-2021 End: 10-24-2021 Exposure to SARS-CoV-2 (event) Unable to assess [facility] Start: 10-22-2022 End: 02-28-2025 Sex Assigned At [facility] Start: 05-31-2014 Adult Depression Screening Assessment 1 [facility] Start: 10-19-2022 Tobacco Comment Current smoker , everyday, 11-20 cigarettes/day [facility] Start: 05-31-2023 Alcohol Comment Caffeine intak e : > 4 cups per day [facility] Start: 08-19-2016 End: 12-16-2023 Tobacco smoking status NHIS Smoker (finding) [facility] Start: 1980 Sex Assigned At Female F [facility] Start: 07-02-2016 End: 08-22-2024 Sex Female (finding) [facility] Start: 02-21-2024 Gender identity Identifies as female gender (finding) [facility] Goals Date Patient Goal Desired Activity /State Functional Status Date Assessment Result Facility 12-25-2014 Are you deaf, or do you have serious difficulty hearing No 12/25/2014 11:14 AM Chichi Womack Ma No [facility] 12-25-2014 Are you blind, or do you have serious difficulty seeing, even when wearing glasses No 12/25/2014 11:14 AM Chichi Womack Ma No [facility] 12-25-2014 Do you have serious difficulty walking or climbing stairs Yes 12/25/2014 11:14 AM Chichi Womack Ma Yes [facility] 12-25-2014 Do you have difficul ty dressing or bathing Yes 12/25/2014 11:14 AM Chichi Womack Ma Yes [facility] 12-25-2014 Because of a physica l, mental, or emotional condition, do you have difficulty doing errands alone such as visiting a physician's office or shopping No 12/25/2014 11:14 AM Chichi Womack Ma No [facility] Mental Status Date Assessment Result Facility 12-25-2014 Because of a physica l, mental, or emotional condition, do you have serious difficulty concentrating, remembering, or making decisions No 12/25/2014 11:14 AM EDT Haroldo Oakley Chichi No [facility] Clinical Notes 05-31-2014 to 02-28-2025 Terence Pacheco MD - 02/28/2025 9:30 AM EDTEjoy English MD - 02/14/2025 3:20 PM EDTRohElena alcazar RN - 01/24/2025 3:40 PM EDTTelephone Encounter [...] on prednisone. She follows with [facility] rheumatology and also with [facility] hematology/oncology. She states she does have [...] Chronic laryngopharyngitis COVID-19 vaccine administered x 2 (Socii) Difficulty walking Fatigue Fibromyalgia, primary GERD (gastroesophageal [...] dressing changes at documented in this encounter [facility] 02-21-2025 Note [facility] 02-21-2025 Note [facility] 02-14-2025 History of Present illness Narrative Follow [...] Visit: as scheduled documented in this encounter [facility] 01-24-2025 Note [facility] 01-24-2025 History of Present illness Narrative Pt did not receive B12 injection today. Pt called & agreeable to receive it when she returns in 2 weeks for her Benlysta infusion. Pharmacy aware and moving date. Elena Alfonso RN documented in this encounter [facility] 01-18-2025 Telephone encounter Note MC message read by patient . [facility] 01-18-2025 Miscellaneous Notes MC message read [...] start prior authorization documented in this encounter [facility] 01-18-2025 Telephone encounter Note Please Call [...] sq benlysta to IV, start prior authorization [facility] 12-14-2024 Note HNO ID: [id number] Author: JHONATHAN VALE RN Service: ? Author Type: Registered Nurse Type: Progress Notes Filed: 12/14/2024 16:36 Note Text: Ran over 2 hours per patient request. [facility] 12-14-2024 History of Present illness Narrative Ran over 2 hours per patient request. 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 [employer] SENDING CMN: Josh SIGNED AND DATED CMN, FAXED TO DME & CONFIRMATION PAGE RECEIVED: 12.14.2024 documented in this encounter [facility] 12-12-2024 Evaluation note Diagnosis Onset Date Resolution Abdominal burning sensation in left upper quadrant acute December 12, 2024 10:42am Abdominal mass acute December 12, 2024 10:42am Abdominal pain acute December 12, 2024 10:42am Bloating acute December 12 10:42am Constipation acute December 12, 025 10:42am Dyspepsia acute December 12 10:42am Lumbosacral spondylosis acute A ugust 2024 10:29am Other chronic pain acute January 17, 2025 10:29am Sacroiliitis acute January 17, 2025 10:29am Lumbosacral spondylosis acute S eptember 2024 9:23am Mid back pain acute January 232024 9:23am Other chronic pain acute Septem kaylin 2024 9:23am Sacroiliitis acute February 142024 9:23am Abdominal pressure acute Octobe 2024 1:29pm Dyspepsia acute February 28, 2 025 1:29pm Fatty liver acute February 28, 2025 1:29pm GERD (gastroesophageal reflux disease) acute February 28 1:29pm [facility] Work Phone: 1(401) 268-137507-10-2025 Evaluation note* Diagnosis Onset Date Resolution Status [...] 2024 9:23am Sacroiliitis acute February 142024 9:23am [facility] Work Phone: 1(646) 307-432707-10-2025 Telephone encounter Note* Telephone Encounter - Enma Hamm RN - 11/30/2024 8:36 AM EDT Pt updated on results. Will continue with IVIG, as previously scheduled. Denied further needs or concerns at this time. Enma Hamm RN [facility]07-10-2025 Miscellaneous Notes* Telephone Encounter - Enma Hamm RN - 11/30/2024 8:36 AM EDT Pt updated on results. Will continue with IVIG, as previously scheduled. Denied further needs or concerns at this time. Enma Hamm RN [facility] History of Present illness Narrative* Vaibhav Carvalho APRN.RADIOLOGY SPECIAL PROCEDURE TECH - 11/29/2024 8:43 AM EDT Images from the original note were not included. NAME: Ariadna Haley [facility] NO.: [id number] DATE OF SERVICE: .November 29, 2024 (Deven) [...] to monitor; no current intervention required per [facility] recommendations. 7. Pre-diabetes (R73.03) Borderline diabetic. [...] requiring a recent corticosteroid injection by her manager utilization. She experiences intermittent fatigue, shortness of breath, [...] lower lip done 2 days ago at [facility] - awaiting results. B12 helps especially at beginning of the month. Might consider every 3 weeks in future Forehead is swollen. Not sure it is related to plaquenil and gets worse on days she take the full dose vs. A partial dose. Will follow dermatology regarding this. [place]. Completing steroid taper now down to 10 mg. And stable there. Updated Visit, August 27, 2022: Ariadna Haley returns for follow-up and B12 injection. She has missed a few B12 injections. Shefollows with multiple doctors including and transitions rn care coordinator, palliative senior np, manager utilization and PCP. She has been told they [...] subcutaneously one time a week. Per PCP [id number] (BMX 1:1:1) 1:1:1 liqd Take 5 mL [...] (Crohn's [Other]) Mother . Vaibhav Carvalho APRN, PRINT BIND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-C, [facility] Provided at: [place], [place] CC: Manuel Ferris MD [address] [address] [facility] History of Present illness Narrative* KELVIN [...] treatment with ILK today. ILK today, see [facility] for details. Consent: The risks and benefits of intralesional kenalog were discussed prior to the procedure. Specifically, the risk of skin atrophy was reviewed. It was also emphasized that multiple treatments may be necessary. Verbal consent was obtained from the patient/parent. Method: See [facility] for details on administration. 0.2 [...] Next Visit: as scheduled [id number] Telephone encounter Note* Telephone Encounter - Renea Schneider MA - 11/20/2024 12:00 PM EDT Patient coming in for treatment visit Wednesday11/29/24. Please add lab orders. thanks. Renea Schneider MA [facility]06-23-2025 Chief complaint+Reason for visit Narrative* Chief [...] :29am Sacroiliitis January 17, 2025 10 :29am [facility] Work Phone: 1(511) 586-266106-23-2025 Chief complaint+Reason for visit Narrative * Chief [...] :29am Sacroiliitis January 17, 2025 10 :29am [facility] Work Phone: 1(946) 289-273706-23-2025 Evaluation note* Diagnosis Onset Date Resolution Status [...] 10:29am Sacroiliitis acute January 17, 2025 10:29am [facility] Work Phone: 1(726) 770-390605-17-2025 History of Present illness Narrative* Lynne Ni [...] visit. Either the patient or their legal risk control representative has been informed of the risks [...] easures, may consider osteoporosis treatment if on petroleum [...] neurology/on metoprolol for POTs, avoid aggravating triggers, prison pain recommendations per primary care provider/pain clinic/patient [...] measures, may consider osteoporosis treatment if on prison steroids/abnormal bmd, take vitamin D script once [...] & right medial thigh no active lesions. 1/18/24 low potassium 3.6, vitamin D 17.3;high wbc [...] measures, may consider osteoporosis treatment if on prison steroids/abnormal bmd, take vitamin D script if [...] neurology/on metoprolol for POTs, avoid aggravating triggers, prison pain recommendations per primary care provider/pain clinic/patient [...] Due for eye exam. Labs sent to [facility]/completed in 06/2021 (no results faxed to office, [...] COVID-19 original vaccine, age 12+ yr, monovalent ([employer] - PURPLE TOP) 09/28/2020 10/19/2020 05/26/2021 COVID-19 vaccine, age 12+ yr ([employer] COMIRNATY) 02/23/2023 COVID-19 vaccine, age 12+ yr, bivalent ([employer]) 02/08/2022 Pneumovax no Flu shot no Tetanus [...] (33);NL cbc, cmp, negative hla b27; [address] 06/2021 low vitamin D 16, vitamin b12-307;high [...] Z79.899 Long-term use of high-risk medication Z79.52 nursing home current use of systemic steroids M79.641, M79.642 [...] ures, may consider osteoporosis treatment if on prison steroids/abnormal bmd, take vitamin D script once [...] (200mg) daily with a meal Please see enterprise application administrator every 6-12months while on Hydroxychloroquine. reStart azathioprine [...] video & audio (virtual) or phone or agrv-um-zlhb patient care, completing clinical documentation, obtaining and/or [...] Workers' Compensation? No Do you need an injection maintenance technician? No [facility] MYCHART ZOOM MESSAGE Question 10/06/2024 [...] my health Strongly Agree documented in this encounterPaulding [facility] Hospital05-17-2025 NoteUniversity Hospitals Ahuja [facility] Center05-17-2025 Instructions* Patient Instructions* Lynne Ni MD - [...] (200mg) daily with a meal Please see enterprise application administrator every 6-12months while on Hydroxychloroquine. azathioprine daily [...] touching your toes, sit-ups, using row machine prison pain recommendations per primary care provider/pain clinic [...] your usual activities immediately. documented in this encounterPaulding County Hospital05-16-2025 Telephone encounter Note * Telephone Encounter - Beatriz Sanchez LPN - 10/06/2024 1:46 PM EDT VM left that below message forwarded to her MC. Requested return call if unable to view message. [facility]05-16-2025 Miscellaneous Notes* Telephone Encounter - Beatriz [...] accordingly. Lynne Ni MD documented in this encounterPaulding County Hospital05-16-2025 Telephone encounter Note * Telephone Encounter [...] above. Please process accordingly. Lynne Ni MD [facility]04-30-2025 NoteUniversity Hospitals Ahuja Medical Center04-30-2025 Note [facility]04-29-2025 History of Present illness Narrative* Deborah Arroyo [...] GENETIC TESTING: None. SOCIAL HISTORY: Lives in [place], [place] with her and daughter. 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 - Partner's ethnicity: not applicable. - No known -Puerto Rican, Mediterranean, /Guamanian, Latvian-Kosovan/Cajun, or Ashkenazi Rastafarian ancestry unless noted above. - Parental consanguinity: [...] via the connective tissue disorder panel at [facility] for Ariadna's daughter. Follow up will be [...] greater than 50% of which was spent lwxn-vx-nxfm counseling. This plan is being carried out per Dr. Lance's recommendations. Deborah Arroyo MS, [facility] Licensed Genetic Counselor [facility] CC: Dr. Last Lance CC: Ariadna Haley Via [employer] documented in this encounterPaulding County Hospital04-29-2025 NoteUniversity Hospitals Ahuja Medical Center04-29-2025 NoteUniversity Hospitals Ahuja [facility] Center04-29-2025 History of Present illness Narrative* Ny Lance MD - 09/19/2024 7:46 AM EDT Images from the original note were not included. Department of Medical Genetics and Genomics OUTPATIENT NEW VISIT NOTE Recording using LogoneX software for draft documentation of the visit was discussed with the patient/authorized risk control representative; all questions welcomed and answered. Patient/authorized risk control representative agreed to proceed Patient Name: Ariadna [...] has a history of using a palate semiconductor dies loader. 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 Per PCP dpleidgudqJBZUU-kbhqoh-ryscqlnkv (BMX 1:1:1) 1:1:1 liqd Take 5 mL [...] OF ablation SOCIAL HISTORY: - Lives in [place], [place] with her and daughters. - Highest level of education: High school. 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 Paternal - . - No known -Puerto Rican, Mediterranean, /Guamanian, Ashkenazi Rastafarian, Latvian-Kosovan/Cajun, or Gnosticist ancestry unless noted above. - Parental consanguinity: [...] pedigree was collected by Deborah Arroyo MS, [facility] at the patient's separate genetic counseling encounter. The pedigree will be scanned into [employer]. This information was reviewed with thefamily and [...] Management For Physiotherapists by Katarina Reza (Eds.), [facility], 2003, ISBN [id number]; Examination and Treatment of a Patient with [...] symptoms when present, recommending follow-up with a winemaker. 2. Chronic pain syndrome (G89.4) Chronic joint [...] 87 minutes was spent with patient for znwi-rw-reyk evaluation, discussion of genetic differential diagnoses, management plan, counseling, chart review, documentation and coordination of care. Portions of family history were obtained by Deborah Arroyo MS, [facility], which were reviewed with family and edited as necessary. All questions were answered to the best of my knowledge. Contact information has been provided to the patient. Ny Lance MD Staff Sailor Department of Medical Genetics and Genomics (DMGG) [facility] Appointments: [facility] CC: Deborah Arroyo MS, [facility] Ariadna Haley (via [employer]) [address] [place] [id number] Lynne Ni MD CC to PCP via fax: Manuel Ferris [address] [place] [id number] documented in this encounterPaulding County Hospital04-28-2025 Telephone encounter Note * Telephone Encounter - Lynne Ni MD - 09/18/2024 4:52 PM EDT Notify patient medication sent as requested Thank you. Patient's request for medication is as follows: Requested Prescriptions Pending Prescriptions Disp Refills belimumab (BENLYSTA) 200 mg/mL auto-injector 12 mL 3 Sig: Inject 200mg (1 pen) subcutaneously once weekly Prescription(s) as above. Please process accordingly. Lynne Ni MD [facility]04-28-2025 Miscellaneous Notes* Telephone Encounter - Lynne [...] (1 pen) subcutaneously once weekly Patient prefers: [facility] Thank you! Maria Esther Pichardo, PharmD Clinical Pharmacist, [employer] [facility] ; Pool: P [facility] Pool #: [id number] documented in this encounterPaulding County Hospital04-28-2025 Telephone encounter Note * Telephone Encounter - Macarena Sanchez - 09/18/2024 4:03 PM EDT Patient will be calling to reschedule her IV IG and benlysta. She needs to find a park manager and will call back with the dates that she will be available. [facility]04-28-2025 Miscellaneous Notes* Telephone Encounter - Macarena Sanchez - 09/18/2024 4:03 PM EDT Patient will be calling to reschedule her IV IG and benlysta. She needs to find a park manager and will call back with the dates that she will be available. documented in this encounterPaulding County Hospital04-28-2025 Telephone encounter Note * Telephone Encounter [...] (1 pen) subcutaneously once weekly Patient prefers: [facility] Thank you! Maria Esther Pichardo, PharmD Clinical Pharmacist, [employer] [facility] ; Pool: P [facility] Pool #: [id number] [facility]04-22-2025 Telephone encounter Note* Telephone Encounter - Karina Pnio - 09/12/2024 2:35 PM EDT Patient has been scheduled at [facility]04-22-2025 Miscellaneous Notes* Telephone Encounter - Karina Pino - 09/12/2024 2:35 PM EDT Patient has been scheduled at [facility] * Telephone Encounter - Sherrie Cortes - [...] below scheduling for the drug. Sandhya Hicks [facility] You25 minutes ago (11:20 AM) DOMINGO Please schedule her every 2 weeks for 3 doses, then every 4 weeks for Benlysta. Thanks, Sandhya Holman [facility] You27 minutes ago (11:18 AM) LS Auth is submitted and pending - okay to set her up 7+ days out. When you call her ask her when she had her last SQ dose, per the provider okay to schedule the IV dose 1 week after her SQ dose. ThanksSandhya * Telephone Encounter - Lynne Ni MD [...] infusions. Will forward to Rheum provider. Anahi Becerril, RN nurse social media marketing manager: patient would like [facility] 8 [facility] Basia Samuel, RN documented in this encounterPaulding County Hospital04-22-2025 Telephone encounter Note * Telephone Encounter - Sherrie Cortes - 09/12/2024 2:13 PM EDT Patient called back and is now in agreement to schedule for Benlysta. Patient has been scheduled for Wednesday, 09/18. She will make her future appointments at this visit when she can work around her family arrangements. Spoke w/ T Wyatt regarding daughter recommendations and patient informed. Sherrie Cortes [facility]04-21-2025 Telephone encounter Note* Telephone Encounter - [...] dose 1 week after her SQ dose. Sandhya Vicente [facility]04-17-2025 Telephone encounter Note* Telephone Encounter - Lynne Ni MD - 09/07/2024 12:52 PM EDT Please start prior authorization for IV benlysta Signed therapy plan with loading doses if approved by insurance. May schedule 1week after last sq injection benlysta pen if approved. Thank you [facility]04-17-2025 Telephone encounter Note* Telephone Encounter - Enma Hamm RN - 09/07/2024 9:04 AM EDT Results discussed with pt. She is set for IVIG 10/04/24. She denies further questions needs or concerns at this time. Enma Hamm RN [facility]04-17-2025 Miscellaneous Notes* Telephone Encounter - Enma Hamm RN - 09/07/2024 9:04 AM EDT Results discussed with pt. She is set for IVIG 10/04/24. She denies further questions needs or concerns at this time. Enma Hamm RN documented in this encounterPaulding County Hospital04-16-2025 Evaluation note* Diagnosis Onset Date Resolution Status Admit Date Lumbosacral spondylosis acute A pril 2024 3:42pm Other chronic pain acute September 06, 2024 3:42pm Sacroiliitis acute September 06, 2024 3:42pm Lumbosacral spondylosis acute J une 2024 11:15am Other chronic pain acute October 232024 11:15am Sacroiliitis acute November 13, 11:15am [facility] Work Phone: 1(823) 250-217404-16-2025 Evaluation note* Diagnosis Onset Date Resolution Status Admit Date Lumbosacral spondylosis acute A pril 2024 3:42pm Other chronic pain acute September 06, 2024 3:42pm Sacroiliitis acute September 06, 2024 3:42pm Lumbosacral spondylosis acute J une 2024 11:15am Other chronic pain acute October 232024 11:15am Sacroiliitis acute November 13 11:15am Lumbosacral spondylosis acute J bart 2024 9:03am Other chronic pain acute November 212024 9:03am Sacroiliitis acute November 30 9:03am [facility] Work Phone: 1(421) 322-538204-16-2025 Telephone encounter Note* Telephone Encounter - Basai Samuel RN - 09/06/2024 4:20 PM EDT Patient has requested to switch from Benlysta injections to infusions. Will forward to Rheum provider. Anahi Becerril RN nurse social media marketing manager: patient would like to know [facility]. Basia Samuel RN [facility]04-16-2025 History of Present illness Narrative* Vaibhav Carvalho APRN.RADIOLOGY SPECIAL PROCEDURE TECH - 09/06/2024 9:00 AM EDT Images from the original note were not included. NAME: Ariadna Haley CLINIC NO.: [id number] DATE OF SERVICE: September 06, 2024 (Deven) [...] lower lip done 2 days ago at [facility] - awaiting results. B12 helps especially [...] injections. Shefollows with multiple doctors including and transitions rn care coordinator, palliative senior np, manager utilization and PCP. She has been told they [...] decreasing. Initial Visit, March 04, 2022: Ariadna Melissa Branchfrancisco javier presents today Hematology and [...] THREE TIMES A DAY^Disp: 135 tablet^Rfl: 1 pxazqsnwtrQPDFJ-tnfejn-kzvtcyqns (BMX 1:1:1) 1:1:1 liqd^Take 5 mL by [...] (Crohn's [Other]) Mother . Vaibhav Carvalho APRN, PRINT BIND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-C, [facility] Provided at: [place], [place] CC: Manuel Ferris MD [facility] [id number] documented in this encounterPaulding County Hospital04-16-2025 NoteUniversity Hospitals Ahuja Medical Center04-14-2025 History of Present illness Narrative* Gordo Barfield MD - 09/04/2024 3:20 PM EDT Subjective Patient ID: Ariadna Haley is a 43 y.o. female who presents for Thyroid Nodule (Follow up ultrasound [facility] 08/24/24) Thyroid US shows a [id number] left inf pole TR4 nodule. Radiology notes [...] 06/01/2023 Tachycardia 06/01/2023 Nonintractable episodic headache 06/01/2023 CHRISTAIN positive 06/15/2022 Anemia, unspecified 03/11/2022 Anxiety 06/09/2023 [...] 03/05/2021 Hair loss 03/05/2021 Hyperlipidemia (CMS/HCC) 05/31/2014 nursing home current use of systemic steroids 02/04/2023 Long-term [...] unspecified (CMS/HCC) 08/10/2023 Hoarse 08/10/2023 Thyroid nodule ([facility]) 08/10/2023 Shortness of breath 07/13/2023 Paroxysmal supraventricular tachycardia ([facility]) 07/13/2023 PAC (premature atrial contraction) 07/13/2023 Degenerative disc disease, lumbar 11/08/2023 Paresthesias 11/08/2023 Nipple discharge 11/15/2023 Irregular periods/menstrual cycles 11/15/2023 Facet arthritis of lumbar region 12/15/2023 Prediabetes 08/24/2023 C. difficile diarrhea 03/07/2024 Diarrhea 03/07/2024 Duct ectasia of breast 03/07/2024 Frequent infections 04/01/2024 GERD (gastroesophageal reflux disease) 03/07/2024 History of vitamin D deficiency 10/05/2023 Hypogammaglobulinemia ([facility]) 04/01/2024 Insulin resistance 03/07/2024 Lupus erythematosus 04/06/2024 Sacroiliitis ([facility]) 04/06/2024 Resolved Ambulatory Problems Diagnosis Date Noted No Resolved Ambulatory Problems Past Medical History: Diagnosis Date Cervical lymphadenopathy COVID-19 vaccine administered Difficulty walking Fatigue Fibromyalgia, primary History of removal of cyst 2012 HTN (hypertension) ([facility]) Hx of abnormal cervical Pap smear 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[facility]) Laryngopharyngeal reflux disease Lupus Nonscarring hair loss, unspecified Nontoxic goiter, unspecified ([facility]/HCC) Nontoxic single thyroid nodule ([facility]) Numbness Oral thrush Sleep apnea Vitamin D [...] % gel ergocalciferol (Vitamin D2) 1.25 MG (79330 UT) capsule Take 50,000 Units by mouth 1 (one) time per week fluocinonide (Lidex) 0.05 % external solution Apply to affected areas on the scalp, up to twice a day when flared, day supply 60 mL 11 fluticasone (Flonase) [...] for more aggressive care documented in this encounterEllis Fischel Cancer [id number] Telephone encounter Note* Telephone Encounter - Blank Kimball - 09/02/2024 10:28 AM EDT Called and spoke with patient, patient is scheduled for a VV on 10/07/24 at 8:00am. Patient stated will complete labs a walk in [facility]04-12-2025 Miscellaneous Notes* Telephone Encounter - Blank [...] diagnoses: Vitamin D deficiency documented in this encounterPaulding County Hospital04-11-2025 Telephone encounter Note * Telephone Encounter [...] above. Please process accordingly. Lynne Ni MD [facility]04-11-2025 Telephone encounter Note* Telephone Encounter - [...] Ni MD Assoc. diagnoses: Vitamin D deficiency [facility]04-07-2025 Telephone encounter Note* Telephone Encounter - Renea Schneider MA - 08/28/2024 11:04 AM EDT Do you want labs? Patient coming in Wednesday09/06/24 for follow up treatment. Thanks, Renea Schneider MA [facility]04-01-2025 Miscellaneous Notes* Telephone Encounter - Renea Schneider MA - 08/28/2024 11:04 AM EDT Do you want labs? Patient coming in Wednesday09/06/24 for follow up treatment. Thanks, Renea Schneider MA documented in this encounterPaulding County Hospital04-01-2025 Miscellaneous Notes* Telephone Encounter - Renea Schneider MA - 11/20/2024 12:00 PM EDT Patient coming in for treatment visit Wednesday11/29/24. Please add lab orders. thanks. Renea Schneider MA documented in this encounterPaulding County Hospital03-27-2025 NoteUniversity Hospitals Ahuja Medical Center03-18-2025 Telephone encounter Note* Telephone Encounter - Basia [...] and patient is aware. Basia Samuel RN [facility]03-18-2025 Miscellaneous Notes* Telephone Encounter - Basia [...] aware. Basia Samuel RN documented in this encounterPaulding County Hospital03-18-2025 NoteUniversity Hospitals Ahuja Medical Center03-18-2025 History of Present illness Narrative* Basia Samuel RN - 08/08/2024 9:03 AM EDT Patient states that she spoke with provider and she will defer IV iron for now, she is taking oral iron and will have labs rechecked in 1 month Basia Samuel RN documented in this encounterPaulding County Hospital03-05-2025 History of Present illness Narrative* Lois [...] treated by rheumatology at the [facility] on steroids, Plaquenil and monoclonal [...] , Rfl: ergocalciferol (Vitamin D-2) 1.25 MG (78019 UT) capsule, Take 1 capsule (50,000 Units) [...] Scribe Attestation By signing my name below, Carina Dorantes Orion GILLISibe attest that this documentation has been prepared [...] exam, discussion and plan. documented in this encounterOhioHealth [facility]ide [facility] Work Phone: 1(208) 756-842803-05-2025 Instructions* Patient Instructions* Aissatou Hanson RN - [...] time of your visit. documented in this encounterOhioHealth Riverside Methodist Hospital Work Phone: 1(788) 878-191303-04-2025 History of Present illness Narrative* Bernabe English [...] ointment bid. On Plaquenil and Benlysta from palliative senior np and started IVIG from zoology teacher. Follow up Diagnosis: Hidradenitis Location: thighs Last [...] given frequent flares of thrush. Start Nystatin 199284 unit suspension qid x 14 days. Recommended [...] not swallow it. Related Medications nystatin (Mycostatin) 091686 UNIT/ML suspension Take 4 mL (400,000 Units) [...] is needed. Instructed to follow up with RETRIMMER for further work up. Next Visit: 1 year documented in this encounterEllis Fischel Cancer [id number] History of Present illness Narrative* Luna Emanuel [...] been reviewed prior to dispensing the medication. Stained Glass Installer Assessment Patient confirmed: Yes Med/dose confirmed: Yes Supplies needed: No supplies needed Missed doses: No Copay amount: 0 Payment confirmed: Yes Delivery method: FedEx Signature required: Waived on patient request Delivery address: [address] [place] [address] Delivery date: 07/27/24 Questions or concerns for the pharmacist?: No Did you have any side effects believed to be related to this medication, that resulted in hospitalization?: No Current Outpatient Medications on File Prior to Visit Medication Sig olxytzwhmbDSOHJ-qoqwiq-wapbjnyrn (BMX 1:1:1) 1:1:1 liqd Take 5 mL [...] facility-administered medications on file prior to visit. [facility] [place] CLINICAL ASSESSMENT - INFLAMMATORY CONDITIONS [...] longer tolerated. Luna Emanuel documented in this encounterPaulding County Hospital03-04-2025 [facility]02-27-2025 NoteHNO ID: [id number] Author: ALHAJI HEAD, DO Service: ? Author Type: Physician Type: Progress Notes Filed: 07/21/2024 13:05 Note Text: VIRTUAL VISIT PROGRESS NOTE This is a virtual visit using [employer] Video Visit. It required patient-provider interaction for the medical decision making as documented below. I have communicated my name and active licensure. The patient's identity and physical location were verified at the time of this visit. Either the patient or their legal risk control representative has been informed of the risks [...] of 18 Current Outpatient Medications Medication Sig mdstejmdjwVQRCO-bsigcm-trhiqxicw (BMX 1:1:1) 1:1:1 liqd Take 5 mL [...] WHILE ON* belimumab ( (more content not included)...[facility]02-27-2025 History of Present illness Narrative* Alhaji Head DO - 07/20/2024 11:41 AM EST VIRTUAL VISIT PROGRESS NOTE This is a virtual visit using [employer] Zoom Video Visit. It required patient- provider interaction for the medical decision making as documented below. I have communicated my name and active licensure. The patient's identity and physical location wereverified at the time of this visit. Either the patient or their legal risk control representative has been informed of the risks [...] of 18 Current Outpatient Medications Medication Sig rrkmslxislHAJTP-udlysm-iuluohtdj (BMX 1:1:1) 1:1:1 liqd Take 5 mL [...] on the R. The patient or authorized risk control representative has agreed to proceed with the [...] axillary nodule which is being followed by sports management intern. Through shared decision making with the patient, [...] DO July 21, 2024 documented in this encounterPaulding County Hospital02-26-2025 Procedure noteDebra Ville [id number] Pain Management Procedure Note Signed Patient: Ariadna Haley MR#: [id number] : 1980 Acct:[id number] Age/Sex: 43 / F Adm Date: 5 Loc: Room: Type: [facility] Attending Dr: Adolfo Kang MD Copies to: [...] MD 07/19/24 1104 Signed By: 07/19/24 1134 [facility]02-19-2025 Instructions* Patient Instructions* Marky Barnes PA-C - 07/12/2024 2:33 PM EST Alginate therapy (Reflux Raft, Reflux Gourmet) documented in this encounterPaulding County Hospital02-19-2025 NoteUniversity Hospitals Ahuja Medical Center02-19-2025 History of Present illness Narrative* Marky Barnes PA-C - 07/12/2024 2:14 PM EST Images from the original note were not included. [facility] NOTE CC: Ariadna Haley is a [...] Current medication(s): Current Outpatient Medications Medication Sig khnunmsedwGSCRP-ylluzl-sgvojmhrg (BMX 1:1:1) 1:1:1 liqd Take 5 mL [...] Level: 3 - Low documented in this encounterPaulding County Hospital02-17-2025 Evaluation note* Diagnosis Onset Date Resolution Status Admit Date Lumbosacral spondylosis acute F ebruary 2024 3:16pm Other chronic pain acute Februa 2024 3:16pm Sacroiliitis acute June 3:16pm [facility] Work Phone: 1(641) 251-113802-17-2025 Evaluation note* Diagnosis Onset Date Resolution Status Admit Date Lumbosacral spondylosis acute F ebruary 2024 3:16pm Other chronic pain acute Februa 2024 3:16pm Sacroiliitis acute June 3:16pm Lumbosacral spondylosis acute M 2024 3:40pm Other chronic pain acute July 31, 2024 3:40pm Sacroiliitis acute July 31, 2024 3:40pm [facility] Work Phone: 1(540) 517-813102-17-2025 Telephone encounter Note* Telephone Encounter - Krista Braswell MA - 07/10/2024 7:28 AM EST Pt was notified via . [facility]02-17-2025 Miscellaneous Notes* Telephone Encounter - Krista [...] accordingly. Lynne Ni MD documented in this encounterPaulding [facility] Telephone encounter Note * Telephone Encounter [...] above. Please process accordingly. Lynne Ni MD [facility]02-06-2025 History of Present illness Narrative* Luna [...] been reviewed prior to dispensing the medication. Stained Glass Installer Assessment Patient confirmed: Yes Med/dose confirmed: Yes Supplies needed: No supplies needed Missed doses: No Estimated days supply on hand: 1 Copay amount: 0 Payment confirmed: Yes Delivery method: FedEx Signature required: Waived on patient request Delivery address: [address], [facility] [address] Delivery date: 07/05/24 Questions or concerns for [...] facility-administered medications on file prior to visit. [facility] [place] CLINICAL ASSESSMENT - INFLAMMATORY CONDITIONS [...] longer tolerated. Luna Emanuel documented in this encounterPaulding County Hospital02-06-2025 NoteUniversity Hospitals Ahu[facility]01-31-2025 Telephone encounter Note* Telephone Encounter - Krista Fonseca MA - 06/23/2024 8:27 AM EST Pt has been notified via HEROZ. [facility]01-31-2025 Miscellaneous Notes* Telephone Encounter - Krista Fonseca MA - 06/23/2024 8:27 AM EST Pt has been notified via HEROZ. * Telephone Encounter - Lynne Ni MD [...] accordingly. Lynne Ni MD documented in this encounterPaulding County Hospital01-30-2025 Telephone encounter Note * Telephone Encounter [...] above. Please process accordingly. Lynne Ni MD [facility]01-29-2025 Telephone encounter Note* Telephone Encounter - Sherrie Cortes - 06/21/2024 2:10 PM EST Thanks for the clarification! I didn't schedule the patient yet for Iron because of the question below so we are all good. Thank you! Shrerie Cortes [facility]01-29-2025 Miscellaneous Notes* Telephone Encounter - Sherrie [...] we will recheck. thanks documented in this encounterPaulding County Hospital01-29-2025 Telephone encounter Note * Telephone Encounter [...] is aware you will call if needed. [facility]01-29-2025 Telephone encounter Note* Telephone Encounter - Vaibhav Carvalho APRN.CNP - 06/21/2024 1:07 PM EST Ok that is fine she can try oral iron Ferrous sulfate 325 mg every other day. Ok to keep her next appointment and we will recheck. thanks [facility]01-28-2025 Telephone encounter Note* Telephone Encounter - Sherrie Cortes - 06/20/2024 8:38 AM EST Left another message for patient. Sent MyChart to call back to schedule infusions when she's ready to schedule and provided phone number. Sherrie Cortes [facility]01-28-2025 Miscellaneous Notes* Telephone Encounter - Sherrie [...] call back to schedule for Venofer. Sherrie Michellepatt * Telephone Encounter - Vaibhav Carvalho APRN.CNP - 06/16/2024 12:26 PM EST Called patient and left a message regarding iron infusions. I did inform patient that she is low oniron and we can replace with IV infusion. Will have the office call to schedule. Encouraged to callback with any questions. documented in this encounterPaulding County Hospital01-24-2025 Telephone encounter Note * Telephone Encounter - Sherrie Cortes - 06/16/2024 3:32 PM EST Call placed to patient, no answer. Left detailed message to call back to schedule for Venofer. Sherrie Cortes [facility]01-24-2025 Telephone encounter Note* Telephone Encounter - Vaibhav Carvalho APRN.CNP - 06/16/2024 12:26 PM EST Called patient and left a message regarding iron infusions. I did inform patient that she is low oniron and we can replace with IV infusion. Will have the office call to schedule. Encouraged to callback with any questions. [facility]01-23-2025 Telephone encounter Note* Telephone Encounter - [...] Pt had recent mammogram that was negative [facility] Cancer [id number] Miscellaneous Notes* Telephone Encounter - KELVIN Cabrera [...] mammogram that was negative documented in this encounterEllis Fischel Cancer [id number] History of Present illness Narrative* Iraida Pate, MAURILIO.RADIOLOGY SPECIAL PROCEDURE TECH - 06/14/2024 10:43 AM EST Glucose - SIBO CPT 16691 Hydrogen Breath Test Ariadna Haley 1980 June 14, 2024 Referring Physician: Bandar Portillo NP Indication: NSG TEST INDICATIONS: Diarrhea R19.7, Abdominal Pressure R10.9 Weight: 275 lbs Location: [facility] Duration of Test: 2 hrs [...] Signature: Iraida Pate APRN.CNP documented in this encounterPaulding County Hospital01-21-2025 Progress note* [facility] [...] 13, 2024 TIME: 10:29 AM PAGER/CONTACT #: [facility]01-21-2025 Miscellaneous Notes* [facility] [...] 10:29 AM PAGER/CONTACT #: documented in this encounterPaulding County Hospital01-21-2025 NoteUniversity Hospitals Ahuja Medical Center01-21-2025 History of Present illness Narrative* Vaibhav Carvalho APRN.CNP - 06/13/2024 9:07 AM EST Images from the original note were not included. NAME: Ariadna Haley [facility] NO.: [id number] DATE OF SERVICE: June 13, 2024 (Deven) [...] lower lip done 2 days ago at [facility] - awaiting results. B12 helps especially [...] injections. Shefollows with multiple doctors including and transitions rn care coordinator, palliative senior np, manager utilization and PCP. She has been told they [...] (Crohn's [Other]) Mother . Vaibhav Carvalho APRN, PRINT BIND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-C, [facility] Provided at: [place], [place] CC: Manuel Ferris MD [address] [place] [address] documented in this encounterPaulding County Hospital01-20-2025 NoteUniversity Hospitals Ahuja Medical Center01-20-2025 History of Present illness Narrative* Lee Friedman - 06/12/2024 2:31 PM EST CMN RECEIVED BY [employer] VIA FAX, COMPLETED, AND PLACED IN PROVIDER MAILBOX FOR SIGNATURE Lee Friedman Coordinator III [employer] SENDING CMN: Josh SIGNED AND DATED CMN, FAXED TO DME & CONFIRMATION PAGE RECEIVED: 06.28.2024 documented in this encounterPaulding County Hospital01-20-2025 Telephone encounter Note * Telephone Encounter - Margret Cuenca MA - 06/12/2024 12:00 PM EST Patient has an OTV appointment on 06/13. Please place lab orders. Margret Cuenca MA [facility]01-20-2025 Miscellaneous Notes* Telephone Encounter - Margret Cuenca MA - 06/12/2024 12:00 PM EST Patient has an OTV appointment on 06/13. Please place lab orders. Margret Cuenca MA documented in this encounterPaulding County Hospital01-14-2025 History of Present illness Narrative* Luna [...] been reviewed prior to dispensing the medication. Stained Glass Installer Assessment Patient confirmed: Yes Med/dose confirmed: Yes Supplies needed: No supplies needed Missed doses: No Estimated days supply on hand: 1 Copay amount: 0 Payment confirmed: Yes Delivery method: FedEx Signature required: Waived on patient request Delivery address: [address] [place] [id number] Delivery date: 06/08/24 Questions or concerns for [...] facility-administered medications on file prior to visit. [facility] [place] CLINICAL ASSESSMENT - INFLAMMATORY CONDITIONS [...] longer tolerated. 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[facility]) 07/06/2023 Depression, recurrent ([facility]) 06/09/2023 Discoid lupus erythematosus ([facility]) 02/14/2022 Disturbance of skin sensation 07/06/2023 Elevated sed rate 03/05/2021 High total serum IgM 03/05/2021 Enthesopathy of hip region 07/06/2023 Essential hypertension ([facility]) 06/09/2023 Excessive and frequent menstruation with irregular cycle 09/24/2022 Family history of Crohn's disease 03/05/2021 Hair loss 03/05/2021 Hyperlipidemia (CMS/HCC) 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 02/04/2023 Long-term [...] Chronic laryngopharyngitis COVID-19 vaccine administered x 2 (Socii) Difficulty walking Fatigue Fibromyalgia, primary GERD (gastroesophageal reflux disease) History of removal of cyst 2013 tailbone x2 HTN (hypertension) ([facility]) Hx of abnormal cervical Pap smear Hyperlipidemia (CMS/HCC) 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 First Time Treatment Report for a non- oncology treatment. No psychosocial assessment is indicated. BILL Rosenberg Goals of Care Advance Directives are not on file. documented in this encounterPaulding County Hospital12-20-2024 History of Present illness Narrative* Luna [...] been reviewed prior to dispensing the medication. Stained Glass Installer Assessment Patient confirmed: Yes Med/dose confirmed: Yes Supplies needed: No supplies needed Missed doses: No Estimated days supply on hand: 1 Copay amount: 0 Payment confirmed: Yes Delivery method: FedEx Signature required: Waived on patient request Delivery address: [address] [place] [address] Delivery date: 05/16/24 Questions or concerns for [...] facility-administered medications on file prior to visit. [facility] [place] CLINICAL ASSESSMENT - INFLAMMATORY CONDITIONS [...] longer tolerated. Luna Emanuel documented in this encounterPaulding County Hospital12-20-2024 NoteUniversity Hospitals Ahuja Medical Center12-04-2024 Nurse Note* Radha Schofield MA - 04/26/2024 9:32 AM EST Patient Identification confirmed: yes. Injection given and documented on JUL per provider order. Radha Schofield MA [facility]12-04-2024 Nurse Note* Radha Schofield MA - 04/26/2024 9:32 AM EST Patient Identification confirmed: yes. Injection given and documented on JUL per provider order. Radha Schofield MA documented in this encounterPaulding County Hospital11-22-2024 Telephone encounter Note * Telephone Encounter - Gay Barnett - 04/14/2024 12:11 PM EST Patient coming in for a sibo breath test on Wednesday and has been on keflex for 3 days and needs to be on for ten so she will need to reschedule [facility]11-22-2024 Miscellaneous Notes* Telephone Encounter - Gay Barnett - 04/14/2024 12:11 PM EST Patient coming in for a sibo breath test on Wednesday and has been on keflex for 3 days and needs to be on for ten so she will need to reschedule documented in this encounterPaulding County Hospital11-19-2024 NoteUniversity Hospitals Ahuja Medical Center11-18-2024 Miscellaneous Notes* Telephone Encounter - Sherrie Cortes [...] Please advise. Sherrie Cortes documented in this encounterPaulding County Hospital11-18-2024 Telephone encounter Note * Telephone Encounter - Sherrie Cotres - 04/10/2024 2:12 PM EST Patient requested this appointment be rescheduled for the end of April. She has been scheduled for 05/19, she is all set. Thank you! Sherrie Cortes [facility]11-18-2024 Telephone encounter Note* Telephone Encounter - Shantel Arce RPh - 04/10/2024 2:07 PM EST SUBQ products (eg, 20% [Cuvitru, Hizentra, Xembify]) or IM products (eg, 16% [GamaSTAN]) intravenously. It would depend upon insurance coverage and would be done as a retail prescription at designated insurance specialty pharmacy. Elpidio Arce, PharmD, BCOP [facility] Work Phone: [phone] Telephone encounter Note* Telephone Encounter - Enma [...] appt per pt request Enma Hamm RN [facility]11-18-2024 Telephone encounter Note* Telephone Encounter - Enma Hamm RN - 04/10/2024 12:54 PM EST Called to discuss with pt. She was researching online and found SCIG a weekly subq injection to give herself that is less dose, and has less side effects. Pharmacy/[facility]: please advise Enma Hamm RN [facility]11-18-2024 Telephone encounter Note* Telephone Encounter - Vera Najera MD - 04/10/2024 12:26 PM EST Really sorry - I don't recall the home infusion of IVIG - I think it is safer to give it to her in-house as IV so we can monitor infusion reactions. Sorry if I created a misunderstanding. [facility]11-18-2024 History of Present illness Narrative* Gordo [...] Ambulatory Problems Diagnosis Date Noted Autoimmune disease ([facility]) 06/01/2023 Fibromyalgia 06/01/2023 Autonomic dysfunction 06/01/2023 Dizziness [...] 03/05/2021 Hair loss 03/05/2021 Hyperlipidemia (CMS/HCC) 05/31/2014 nursing home current use of systemic steroids 02/04/2023 Long-term [...] AREA NEEDED ergocalciferol (Vitamin D2) 1.25 MG (94222 UT) capsule Take 50,000 Units by mouth [...] referred from the [facility] documented in this encounterEllis Fischel Cancer [id number] Telephone encounter Note* Telephone Encounter - Sherrie [...] Triage was involved? Please advise. Sherrie Cortes [facility]11-15-2024 NoteUniversity Hospitals Ahuja Medical Center11-15-2024 History of Present illness Narrative* Deisy Jaime [...] 9:31 AM PAGER/CONTACT #: documented in this encounterPaulding County Hospital11-14-2024 Evaluation + Plan note* Assessment & [...] her Raynaud's. All her questions were answered. [employer] [id number] Miscellaneous Notes* Assessment & Plan Note - [...] her questions were answered. documented in this encounterGerman Hospital11-14-2024 History of Present illness Narrative* Hayden [...] Interpersonal Safety: Unknown (07/15/2023) [facility] from [facility] Safety & Environment Fear of Current [...] Assessment and Plan: Problem List Rheumatoid arthritis ([facility]) Relevant Medications ibuprofen (ADVIL,MOTRIN) 200 mg tablet predniSONE (STERAPRED DS) 10 mg tablet pack Systemic lupus erythematosus ([facility]) - Primary Relevant Medications ibuprofen (ADVIL,MOTRIN) 200 [...] orders for this visit: Systemic lupus erythematosus ([facility]) - Vas art doppler lwr bilat mult lev/PVR; Future Cold extremities - [facility] [place], [place] - Vas art doppler lwr bilat mult lev/PVR; Future Pain of lower extremity, unspecified laterality - [facility] - [place], [place] - Vas art doppler lwr bilat mult lev/PVR; Future Rheumatoid arthritis, involving unspecified site, unspecified whether rheumatoid factor present ([facility]) Current smoker 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 Hayden [...] you for your understanding. documented in this encounterOhioHealth Southeastern Medical CenterAnte Up11-14-2024 Instructions* Patient Instructions* Hayden Arciniega MD - 04/06/2024 9:40 AM EST Are You Ready To Kick The Habit? Free Tobacco Cessation Resources [facility] Services [facility] Centers provide all employees with free tobacco cessation services that include: Counseling to understand nicotine addiction Education about medications that can help you successfully quit Assistance with developing a plan to quit Call to set up an individual appointment or find out when group classes will be held: [facility]: [phone] [facility]: [phone] [facility]: [phone] [facility]: [phone] Quit Smoking Action Plan and Resources [facility] offers an eight-week, online smoking cessation plan to all [facility] employees, regardless of whether [employer] is your medical insurance provider. Go to www.[email or web address]/employeewellness and click the Health Risk Assessment and Resources link to get started. In the Stkr.it menu, click Action Plans instead of Health Risk Assessment to access the Quit Smoking Action Plan. Additional smoking cessation resources are also available to all [facility] employees on the P[employer] web page at www.[employer]or/quitsmoking. [employer] Tobacco Cessation Program If [employer] is your medical insurance provider, there are more free resources available to you, including: No copays or deductibles on local tobacco cessation counseling services to help you quit Prescription assistance for tobacco cessation medications to help you quit For details about the tobacco cessation program available to [employer] members, go to www.StarBlock.com.[place] rouge.com (Search: Tobacco Cessation Program). [place] Tobacco Quit Line 2-585-FVKW-NOW ( ) is a toll-free, telephonic service that helps [place] residents quit smoking and using tobacco. It is staffed by experts who tailor a quit plan for you and provide you with advice. [place] Tobacco Quit Line 9-348-DEVE-NOW ( ) is a toll-free, telephonic service that helps [place] residents quit smoking and using tobacco. It is staffed by experts who tailor a quit plan for you and provide you with advice. Two weeks of nicotine replacement therapy may be provided at no charge, if needed. Additional Resources These national organizations also offer free information and resources to help you quit tobacco: [place] Cancer [employer]--www.cancer.org/healthy/stayawayfromtobacco [place] Heart [employer]--www.heart.org (Search: Quit Smoking) Centers for Disease Control and Prevention--www.cdc.gov/tobacco [place] Lung Association--www.lungusa.org documented in this encounterGerman Hospital11-11-2024 Telephone encounter Note* Telephone Encounter - Marky Mike DO - 04/03/2024 9:36 AM EST Changed terbinafine to itraconazole at pt request. [facility] [id number] Miscellaneous Notes* Telephone Encounter - Marky Mike DO - 04/03/2024 9:36 AM EST Changed terbinafine to itraconazole at pt request. documented in this encounterEllis Fischel Cancer [id number] Telephone encounter Note* Telephone Encounter - Lynne [...] above. Please process accordingly. Lynne Ni MD [facility]11-10-2024 Miscellaneous Notes* Telephone Encounter - Lynne [...] accordingly. Lynne Ni MD documented in this encounterPaulding County Hospital11-10-2024 History of Present illness Narrative* Marky [...] with her immunosuppressive therapy. documented in this encounterEllis Fischel Cancer [id number] Instructions* Patient Instructions* Vera Najera MD - 04/01/2024 4:28 PM EST Obtain body fluid culture from [facility]. B12 shot today and every 4 weeks. Continue Folic acid. Frequent infections plan IVIG for hypogammaglobulinemia Start when approved. RTC 3 months repeat labs same day. IVIG same day. 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 [facility]11-07-2024 Miscellaneous Notes* Telephone Encounter - Mae [...] note were not included. documented in this encounterPaulding County Hospital11-06-2024 Telephone encounter Note * Telephone Encounter - Mae Elaine - 03/29/2024 9:02 AM EST Im for pt- saved time on 04/18 7:45 Also sent mychart msg. dm [facility]11-04-2024 NoteUniversity Hospitals Ahuja Medical Center11-04-2024 History of Present illness Narrative* Vera Najera MD - 03/27/2024 3:03 PM EST Images from the original note were not included. NAME: Ariadna Haley [facility] NO.: [id number] DATE OF SERVICE: March 27, 2024 (Marquis) Some elements in this clinic note that are critical to medical decision making have been carefully reviewed and included from a prior clinic note dated: December 27, 2023 (Liz) Referring Provider: Dr. Manuel Ferris Additional Clinicians involved in Ariadna Haley's care: VIRTUAL VISIT PROGRESS NOTE This is a virtual visit using [employer] Hcm Consultant Video Call. It required patient- provider interaction for the medical decision making as documented below. I have communicated my name and active licensure. The patient's identity and physical location wereverified at the time of this visit. Either the patient or their legal risk control representative has been informed of the risks [...] noted. PLAN: Obtain body fluid culture from [facility]. B12 shot today and every 4 [...] lower lip done 2 days ago at [facility] - awaiting results. B12 helps especially [...] injections. Shefollows with multiple doctors including and transitions rn care coordinator, palliative senior np, manager utilization and PCP. She has been told they [...] [facility] Provided at: [place], [place] CC: Manuel Ferris MD [address] [address] documented in this encounterPaulding County Hospital10-31-2024 History of Present illness Narrative* KELVIN [...] Ambulatory Problems Diagnosis Date Noted Autoimmune disease ([facility]) 06/01/2023 Fibromyalgia 06/01/2023 Autonomic dysfunction 06/01/2023 Dizziness [...] Tobacco use disorder 07/06/2023 Cytomegalovirus infection (HCC) ([facility]) 07/06/2023 Depression, recurrent ([facility]) 06/09/2023 Discoid lupus erythematosus ([facility]) 02/14/2022 Disturbance of skin sensation 07/06/2023 Elevated sed rate 03/05/2021 High total serum IgM 03/05/2021 Enthesopathy of hip region 07/06/2023 Essential hypertension ([facility]) 06/09/2023 Excessive and frequent menstruation with irregular cycle 09/24/2022 Family history of Crohn's disease 03/05/2021 Hair loss 03/05/2021 Hyperlipidemia ([facility]) 05/31/2014 nursing home current use of systemic steroids 02/04/2023 Long-term use of high-risk medication 06/15/2022 Long-term use of Plaquenil 03/05/2021 LPRD (laryngopharyngeal reflux disease) 07/06/2023 Megaloblastic anemia due to vitamin B12 deficiency 03/04/2022 Myalgia 07/06/2023 Obesity, Class III, BMI 40-49.9 (morbid obesity) ([facility]) 09/07/2022 Obstructive sleep apnea syndrome 05/20/2022 Oral lesion 07/06/2023 Pain, hip 07/06/2023 Rash and nonspecific skin eruption 03/05/2021 Steroid-induced osteoporosis ([facility]) 02/04/2023 Somnolence, daytime 05/20/2022 Secondary osteoarthritis of multiple sites 03/05/2021 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 02/04/2023 Swelling of lymph nodes 03/05/2021 Vitamin D deficiency 03/06/2021 Vitamin B12 deficiency 05/31/2014 Pure hypercholesterolemia, unspecified (CMS/[facility]) 08/10/2023 Hoarse 08/10/2023 Thyroid nodule ([facility]) 08/10/2023 Shortness of breath 07/13/2023 Paroxysmal supraventricular tachycardia ([facility]) 07/13/2023 PAC (premature atrial contraction) 07/13/2023 Degenerative disc disease, lumbar 11/08/2023 Paresthesias 11/08/2023 Nipple discharge 11/15/2023 Irregular periods/menstrual cycles 11/15/2023 Facet arthritis of lumbar region 12/15/2023 Resolved Ambulatory Problems Diagnosis Date Noted No Resolved Ambulatory Problems Past Medical History: Diagnosis Date Cervical lymphadenopathy COVID-19 vaccine administered Difficulty walking Fatigue Fibromyalgia, primary GERD (gastroesophageal reflux disease) History of removal of cyst 2012 HTN (hypertension) ([facility]) Hx of abnormal cervical Pap smear Insulin resistance Laryngopharyngeal reflux disease Lupus Numbness Oral thrush Prediabetes Sleep apnea Weakness of limb HISTORY PAST MEDICAL HISTORY SOCIAL HISTORY Past Medical History: Diagnosis Date Anxiety Cervical lymphadenopathy Chronic laryngopharyngitis COVID-19 vaccine administered x 2 ([employer]) Difficulty walking Fatigue Fibromyalgia, primary GERD (gastroesophageal reflux disease) History of removal of cyst 2012 tailbone x2 HTN (hypertension) ([facility]) Hx of abnormal cervical Pap smear Hyperlipidemia ([facility]) Insulin resistance Laryngopharyngeal reflux disease Lupus Numbness [...] behalf of: KELVIN Cabrera documented in this encounterEllis Fischel Cancer [id number] Nurse Note* Stacy Gutiérrez MA - 03/23/2024 10:16 AM EDT Patient Identification confirmed: yes. Injection given and documented on MAR per provider order. Stacy Gutiérrez MA [facility]10-31-2024 Nurse Note* Stacy Gutiérrez MA - 03/23/2024 10:16 AM EDT Patient Identification confirmed: yes. Injection given and documented on MAR per provider order. Stacy Gutiérrez MA documented in this encounterPaulding County Hospital10-28-2024 Telephone encounter Note * Telephone Encounter - Mae Elaine - 03/20/2024 12:37 PM EDT Images from the original note were not included. [facility]10-26-2024 History of Present illness Narrative* Lynne [...] visit. Either the patient or their legal risk control representative has been informed of the risks [...] see ophthalmology, steroids/prednisone 10mg daily/ per [place] care provider/try weaning off, see derm/?eval recurrent boils, see spine/pain clinic/improved with lyrica/may increase if needed, see derm, start prn heat/ice/otc arthritis creams, low impact weightbearing exercise as tolerated, see neurology/on metoprolol for POTs, avoid aggravating triggers, prison pain recommendations per primary care provider/pain clinic/patient [...] neurology/on metoprolol for POTs, avoid aggravating triggers, prison pain recommendations per primary care provider/pain clinic/patient [...] Due for eye exam. Labs sent to [place]/completed in 06/2021 (no results faxed to office, [...] COVID-19 original vaccine, age 12+ yr, monovalent ([employer] - PURPLE TOP) 09/28/2020 10/19/2020 05/26/2021 COVID-19 vaccine, age 12+ yr ([employer] COMIRNATY) 02/23/2023 COVID-19 vaccine, age 12+ yr, bivalent ([employer]) 02/08/2022 Pneumovax no Flu shot no Tetanus [...] (33);NL cbc, cmp, negative hla b27; [address] 06/2021 low vitamin D 16, vitamin b12-307;high wbc 11.1, esr 21;NL rest of hgb 12.2, plts 314, crp<0.5mg/dL; 03/05/21 low vitamin D 11 (6.7), vitamin b12-358;high esr 33;NL crp 0.5, ck 59, aldolase 3.9;negative praomd, ccp<15, hepatitis panel,quantiferon tb; Outside 11/2020 high [...] Long-term use of high-risk medication 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 M79.641, M79.642 Bilateral hand pain M32.9 Systemic lupus erythematosus, unspecified SLE type, unspecified organ involvement status ([facility]) E53.8 Vitamin B12 deficiency L93.0 Discoid lupus [...] measures, may consider osteoporosis treatment if on prison steroids/abnormal bmd, take vitamin D script once [...] neurology/on metoprolol for POTs, avoid aggravating triggers, prison pain recommendations per primary care provider/pain clinic/patient [...] (200mg) daily with a meal Please see enterprise application administrator every 6-12months while on Hydroxychloroquine. Start azathioprine [...] touching your toes, sit-ups, using row machine prison pain recommendations per primary care provider/pain clinic [...] video & audio (virtual) or phone or [id number] patient care, completing clinical documentation, obtaining and/or [...] Workers' Compensation? No Do you need an injection maintenance technician? No [facility] MYCHART ZOOM MESSAGE Question 03/16/2024 7:44 PM [...] of Right Forearm or Lower Left Leg. [facility] PROMIS 10 ADULT SHORT FORM V1.0 GLOBAL [...] my health Strongly Agree documented in this encounterPaulding County Hospital10-26-2024 NoteUniversity Hospitals Ahuja Medical Center10-26-2024 Instructions* Patient Instructions* Lynne Ni MD - [...] (200mg) daily with a meal Please see enterprise application administrator every 6-12months while on Hydroxychloroquine. azathioprine daily [...] your usual activities immediately. documented in this encounterPaulding County Hospital10-25-2024 Telephone encounter Note * Telephone Encounter [...] above. Please process accordingly. Lynne Ni MD [facility]10-25-2024 Miscellaneous Notes* Telephone Encounter - Lynne [...] SPEC EST 03/18/2024 9:00 AM [facility] REJ Last Ophthalmology Check for Plaquenil [...] Assoc. diagnoses: Pseudomonas infection documented in this encounterPaulding County Hospital10-25-2024 Telephone encounter Note * Telephone Encounter [...] Department VIDEO SPEC EST 03/18/2024 9[facility]00 [facility] Last Ophthalmology Check [...] deficiency, Elevated sed rate FERRITIN BLD [SQFERR] / Every 3 months 06/02/24 06/03/23 02/21/24 [...] Alhaji Head DO Assoc. diagnoses: Pseudomonas infection [facility]10-24-2024 History of Present illness Narrative* Luan Valdivia, DO - 03/16/2024 11:30 AM EDT Reason [...] Ambulatory Problems Diagnosis Date Noted Autoimmune disease ([facility]) 06/01/2023 Fibromyalgia 06/01/2023 Autonomic dysfunction 06/01/2023 Dizziness 06/01/2023 Tachycardia 06/01/2023 Nonintractable episodic headache 06/01/2023 CHRISTAIN positive 06/15/2022 Anemia, unspecified 03/11/2022 Anxiety 06/09/2023 Ataxia 05/31/2014 Bilateral leg weakness 03/05/2021 Bilateral wrist pain 02/04/2023 Cervical radiculopathy 07/06/2023 Lumbosacral radiculopathy at L5 07/06/2023 Chronic fatigue and malaise 06/10/2023 Chronic laryngopharyngitis 07/06/2023 Chronic pain of toes of both feet 03/05/2021 Current smoker 07/06/2023 Tobacco use disorder 07/06/2023 Cytomegalovirus infection (HCC) ([facility]) 07/06/2023 Depression, recurrent ([facility]) 06/09/2023 Discoid lupus erythematosus (CMS/HCC) 02/14/2022 Disturbance of skin sensation 07/06/2023 Elevated sed rate 03/05/2021 High total serum IgM 03/05/2021 Enthesopathy of hip region 07/06/2023 Essential hypertension (CMS/HCC) 06/09/2023 Excessive and frequent menstruation with irregular cycle 09/24/2022 Family history of Crohn's disease 03/05/2021 Hair loss 03/05/2021 Hyperlipidemia (CMS/HCC) 05/31/2014 nursing home current use of systemic steroids 02/04/2023 Long-term [...] Chronic laryngopharyngitis COVID-19 vaccine administered x 2 ([employer]) Difficulty walking Fatigue Fibromyalgia, primary GERD (gastroesophageal [...] nursing note reviewed. Exam conducted with a manager printing present. Vitals: Estimated body mass index is [...] Disease with Dr. Kelsey and Specialist at [facility]. Patient voiced that Dr. Kelsey recommended surgery, but patient feels that maybe excessive. Specialist at [facility] suggested monitoring. Patient has had mammogram. Patient does not put anything on her breast.Ruled out Mondor's Breast concerns. Discussed Tiline Oil at night and Vitamin E lotion. Patient voiced that her breast feel brambila and heavier. Discussed growth of breast and proper support. Breastare not hot nor warm to the touch. Patient to obtain bilateral breast ultrasound. Patient to followup with routine annual appointment and as needed. Documented by Alicia Christine LPN on behalf of: Luan Valdivia DO documented in this encounterEllis Fischel Cancer [id number] NoteUniversity Hospitals Ahuja Medical Center10-16-2024 NoteBELLSELECT [facility]ICAL [facility] Note Chief Complaint: New patient here to establish care. Ref from Gay Enciso CNP for hypertension. Former [facility] cardiology patient. Had echo a few weeks ago at [facility]. Says her BP is very low [...] past several months. She has seen 2-3 winemaker in the past. She has undergone a [...] on any stimulants including caffeinated beverages, alcohol, kgww-hqm-pshrjyw Sudafed etc. If her symptoms of palpitations persist, particular if she has lightheadedness or dizziness, head upright tilt table test may be reasonable to evaluate for possible dysautonomia's I discussed the side effects and risks of long-term steroid therapy and recommended she discuss with her palliative senior np weaning off soon as possible Given her morbid obesity, her current symptoms and comorbidities are likely related to excessive weight: I encouraged physical activity, attempts to lose weigh (more content not included)...[facility] 03-07-2024 NoteUniversity Hospitals Ahuja Medical Center10-15-2024 History of Present illness Narrative* Lee Friedman - 03/07/2024 8:35 AM EDT CMN RECEIVED BY [employer] VIA FAX, COMPLETED, AND PLACED IN PROVIDER MAILBOX FOR SIGNATURE Lee Friedman Coordinator III 03.07.2024 DME COMPANY SENDING CMN: Josh SIGNED AND DATED CMN, FAXED TO DME & CONFIRMATION PAGE RECEIVED: 03.07.2024 documented in this encounterPaulding County Hospital10-01-2024 Telephone encounter Note * Telephone Encounter [...] terrified to drive that far to [place].' Further reviewed the reasoning behind the visit needing to be in-person and stated that I would have our administrative dietitian reach out if she is willingto accept an in-person appt. PT requested that I review with our clinical team if this can be a VV before she schedules. I let her know I will do so and be in touch. She had no further questions at this time. Luda Vargas Genetic Counseling Naphthalene Operator Additional: see Khoa for documentation of scheduling and cancellation with genetics in 2021 [facility]10-01-2024 Miscellaneous Notes* Telephone Encounter - Luda [...] 'too terrified to drive that far to [facility].' Further reviewed the reasoning behind the visit needing to be in-person and stated that I would have our administrative dietitian reach out if she is willingto accept an in-person appt. PT requested that I review with our clinical team if this can be a VV before she schedules. I let her know I will do so and be in touch. She had no further questions at this time. Luda Vargas Genetic Counseling Naphthalene Operator Additional: see Khoa for documentation of scheduling and cancellation with genetics in 2021 documented in this encounterPaulding County Hospital09-30-2024 Nurse Note* Kenzie Shannon MA - 02/21/2024 11:13 AM EDT Patient Identification confirmed: yes. Injection given and documented on MAR per provider order. Kenzie Shannon MA [facility]09-30-2024 Nurse Note* Kenzie Shannon MA - 02/21/2024 11:13 AM EDT Patient Identification confirmed: yes. Injection given and documented on MAR per provider order. Kenzie Shannon MA documented in this encounterPaulding County Hospital09-27-2024 Telephone encounter Note * Telephone Encounter - Sherrie Jimenes - 02/18/2024 1:26 PM EDT Patient is calling the [place] [facility] office requesting Dr. Ni to place a referral to genetics. Please advise. [facility]09-27-2024 Miscellaneous Notes* Telephone Encounter - Sherrie Jimenes - 02/18/2024 1:26 PM EDT Patient is calling the [place] office requesting Dr. Ni to place a referral to genetics. Please advise. documented in this encounterPaulding County Hospital09-24-2024 Telephone encounter Note * Telephone Encounter - Hansa Javed LPN - 02/15/2024 9:49 AM EDT PAP ORDER FAXED TO [facility] WITH DEMOGRAPHICS, OFFICE NOTES WITH CONFIRMATON NOTED. [facility]09-24-2024 Miscellaneous Notes* Telephone Encounter - Hansa Javed LPN - 02/15/2024 9:49 AM EDT [facility], OFFICE NOTES WITH CONFIRMATON NOTED. documented in this encounterPaulding County Hospital09-23-2024 History of Present illness Narrative* Elton (Rod Buster Helper)Luda - 02/14/2024 2:32 PM EDT [facility] [...] been reviewed prior to dispensing the medication. Stained Glass Installer Assessment Patient confirmed: Yes Med/dose confirmed: Yes Missed doses: No Estimated days supply on hand: 1 Next cycle/dose due: 02/17/24 Copay amount: 0 Payment confirmed: Yes Delivery method: FedEx Signature required: Waived on patient request Delivery address: [address] [place] [address] [place]. [place], [place] Delivery date: 02/17/24 Questions or concerns [...] facility-administered medications on file prior to visit. [facility] [place] SPECIALTY CLINICAL ASSESSMENT - INFLAMMATORY CONDITIONS [...] efficacy and/or no longer tolerated. Luda Vale [facility] [phone] documented in this encounterPaulding County Hospital09-23-2024 History of Present illness Narrative* Elton EpsteinTaDawebLuda Benz - 02/14/2024 2:26 PM EDT Benefits investigation was conducted, indicating that a re-authorization is required for [employer]. PA was initiated and pending review. Plan Name: Keesha CoverMyMeds Balderrama: [id number] [facility] [phone] documented in this encounterPaulding County Hospital09-23-2024 Instructions* Patient Instructions* Lexus Heck APRN.CNP [...] treatment, there are resources available at the [facility] such as a nutrition consultation or referral to weight management programs at our [facility]. Please let us know if we can [...] and out of pocket expenses. DME: Josh [phone] - Remember to clean your mask and equipment regularly, as directed. - Avoid use of ozone account installer, SoClean devices, or UV cleaning devices - [...] the central scheduling system for the [facility] at [phone]. [facility] now offers direct scheduling for patients to schedule appointments. Virtual visits are also available. Call the office at [phone], option #5 for questions. documented in this encounterPaulding County Hospital09-23-2024 History of Present illness Narrative* Lexus Heck APRN.CNP - 02/14/2024 8:00 AM EDT Images from the original note were not included. [facility] Virtual Visit Follow up/ Established patient visit Date of last visit : 07/27/2022 I have communicated my name and active licensure. The patient's identity and physical location wereverified at the time of this visit. Either the patient or their legal risk control representative has been informed of the risks [...] Return Visit in 6 months. Lexus Heck APRN.RADIOLOGY SPECIAL PROCEDURE TECH Interval history : Here for follow up for sleep apnea management. SLEEP APNEA Sleep apnea type : JOSE RAFAEL Most Recent Apnea-Hypopnea Index (AHI): 5.3 (HSAT scored 4 %) Treatment : PAP therapy DME: Josh [place] fax: [phone] [facility] ph: [phone] PAP History: Current PAP settin-15 cm H2O. [...] are sorted in reverse-chronological order 04/12/2022 07/23/2022 [place] Sleepiness Scale Score 4 (No clinically significant [...] - Follow up 12 months. Lexus Heck APRN.RADIOLOGY SPECIAL PROCEDURE TECH documented in this encounterPaulding County Hospital09-18-2024 History of Present illness Narrative* Zita Cuellar NP - 02/09/2024 8:00 AM EDT Images from the original note were not included. CHIEF COMPLAINT REASON FOR VISIT : leg pain HPI: Ariadna Haley is a 43 y.o. female who presents for [facility]. She is at home. She [...] Chronic laryngopharyngitis COVID-19 vaccine administered x 2 ([employer]) Difficulty walking Fatigue Fibromyalgia, primary GERD (gastroesophageal reflux disease) History of removal of cyst 2013 tailbone x2 HTN (hypertension) ([facility]) Hx of abnormal cervical Pap smear Hyperlipidemia ([facility]) Insulin resistance Laryngopharyngeal reflux disease Lupus (CMS/[facility]) Numbness Oral lesion Oral thrush Prediabetes Sleep [...] Depression: Not at risk (12/27/2023) Received from [facility] PHQ-2 PHQ-2 score: 1 REVIEW OF [...] patient, and coordinating care. documented in this encounterEllis Fischel Cancer [id number] NoteHNO ID: [id number] Author: ALHAJI HEAD, DO Service: ? Author Type: Physician Type: Progress Notes Filed: 01/27/2024 16:54 Note Text: VIRTUAL VISIT PROGRESS NOTE This is a virtual visit using [employer] Video Visit. It required patient-provider interaction for the medical decision making as documented below. I have communicated my name and active licensure. The patient's identity and physical location were verified at the time of this visit. Either the patient or their legal risk control representative has been informed of the risks [...] of green drainage. She saw her OB/ wind turbine design engineer. This was thought to be secondary to [...] SOB/WHEEZING, and NO DYSPHAG (more content not included)...[facility]09-05-2024 History of Present illness Narrative* Alhaji Head DO - 01/27/2024 10:10 AM EDT Images from the original note were not included. VIRTUAL VISIT PROGRESS NOTE This is a virtual visit using [employer] Zoom Video Visit. It required patient- provider interaction for the medical decision making as documented below. I have communicated my name and active licensure. The patient's identity and physical location wereverified at the time of this visit. Either the patient or their legal risk control representative has been informed of the risks [...] of green drainage. She saw her OB/ wind turbine design engineer. This was thought to be secondary to [...] thrush Alhaji Head DO documented in this encounterPaulding County Hospital09-03-2024 Nurse Note* Margret Cuenca MA - 01/25/2024 11:30 AM EDT Patient Identification confirmed: yes. Injection given and documented on JUL per provider order. Margret Cuenca MA [facility]09-03-2024 Nurse Note* Margret Cuenca MA - 01/25/2024 11:30 AM EDT Patient Identification confirmed: yes. Injection given and documented on JUL per provider order. Margret Cuenca MA documented in this encounterPaulding County Hospital08-27-2024 History of Present illness Narrative* Arianne [...] outcomes. 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 [facility] [place] CLINICAL ASSESSMENT - INFLAMMATORY CONDITIONS [...] no longer tolerated. Arianne Mckinley CPhT, Inflammatory/Allergy [facility] [phone] documented in this encounterPaulding County Hospital08-21-2024 Telephone encounter Note * Telephone Encounter - Krista Braswell MA - 01/12/2024 10:45 AM EDT Pt has been notified via HEROZ. [facility]08-21-2024 Miscellaneous Notes* Telephone Encounter - Krista Fonseca MA - 01/12/2024 10:45 AM EDT Pt has been notified via HEROZ. * Telephone Encounter - Lynne Ni MD [...] Assoc. 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 Please process accordingly. Lynne Ni MD [facility]08-21-2024 Telephone encounter Note* Telephone Encounter - [...] Lynne Ni MD Assoc. 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 [facility]08-08-2024 Miscellaneous Notes* Telephone Encounter - Krista [...] vitamin b12 every month documented in this encounterPaulding County Hospital08-08-2024 Telephone encounter Note * Telephone Encounter [...] likely reactive, continue vitamin b12 every month [facility]08-05-2024 Telephone encounter Note* Telephone Encounter - Enma Hamm RN - 12/27/2023 12:49 PM EDT Pt informed of MM message and denies any questions, needs or concerns at this time. Appointments verified. Enma Hamm RN [facility]08-05-2024 Miscellaneous Notes* Telephone Encounter - Enma Hamm RN - 12/27/2023 12:49 PM EDT Pt informed of MM message and denies any questions, needs or concerns at this time. Appointments verified. Enma Hamm RN * Telephone Encounter - Neda Hill PA-C - 12/27/2023 12:44 PM EDT Please call and inform the patient that I reviewed her [facility] records and there is no evidence of a blood clot and she does not need to be on blood thinners. Neda Hill PA-C documented in this encounterPaulding County Hospital08-05-2024 Telephone encounter Note * Telephone Encounter - Neda Hill PA-C - 12/27/2023 12:44 PM EDT Please call and inform the patient that I reviewed her [facility] records and there is no evidence of a blood clot and she does not need to be on blood thinners. Neda Hill PA-C [facility] Work Phone: [phone] Nurse Note* Margret Cuenca MA - 12/27/2023 11:44 AM EDT Patient Identification confirmed: yes. Injection given and documented on MAR per provider order. Margret Cuenca MA [facility]08-05-2024 Nurse Note* Margret Cuenca MA - 12/27/2023 11:44 AM EDT Patient Identification confirmed: yes. Injection given and documented on MAR per provider order. Margret Cuenca MA documented in this encounterPaulding County Hospital08-05-2024 History of Present illness Narrative* Neda Hill PA-C - 12/27/2023 11:30 AM EDT Images from the original note were not included. NAME: Ariadna Haley CLINIC NO.: [id number] DATE OF SERVICE: December 27, 2023 (Liz) [...] labs 1 week before. Request records from [facility] from PE/elevated d-dimer Frequent infections and [...] lower lip done 2 days ago at [facility] - awaiting results. B12 helps especially [...] injections. Shefollows with multiple doctors including and transitions rn care coordinator, palliative senior np, manager utilization and PCP. She has been told they [...] which included preparing to see the patient, [id number] patient care, completing clinical documentation, obtaining and/or reviewing separately obtained history, performing a medically appropriate examination, counseling and educating the pat ient/family/caregiver, ordering medications, tests, or procedures, communicating with other HCPs (not separately reported), independently interpreting results (not separately reported), communicatingresults to the patient/family/caregiver, and care coordination (not separately reported). Neda Hill PA-C Hematology and Oncology Services Provided at: [place], [place] CC: Manuel Ferris MD [address] [facility] [address] documented in this encounterPaulding County Hospital07-22-2024 History of Present illness Narrative* Vale (Rod Buster Helper)Luda - 12/13/2023 11:44 AM EDT [facility] [...] laboratory parameters, disease state markers and outcomes. Stained Glass Installer Assessment Patient confirmed: Yes Med/dose confirmed: Yes Missed doses: No Estimated days supply on hand: 1 Next cycle/dose due: 12/16/23 Copay amount: 0 Payment confirmed: Yes Delivery method: FedEx Signature required: Waived on patient request Delivery address: [address] [place] [address] Delivery date: 12/17/23 Questions or concerns for [...] facility-administered medications on file prior to visit. [facility] [place] CL[facility]ICAL ASSESSMENT - INFLAMMATORY CONDITIONS V6: Assessment to use: Refill [facility] [place] PHARMACY VACCINE INFORMATION [facility] [place] TREATMENT PLAN INFORMATION Luda Vale CPhT [facility] [phone] documented in this encounterPaulding County Hospital07-08-2024 Nurse Note* Stacy Gutiérrez MA - 11/29/2023 1:47 PM EDT Patient Identification confirmed: yes. Injection given and documented on JUL per provider order. Stacy Gutiérrez MA [facility]07-08-2024 Nurse Note* Stacy Gutiérrez MA - 11/29/2023 1:47 PM EDT Patient Identification confirmed: yes. Injection given and documented on JUL per provider order. Stacy Gutiérrez MA documented in this encounterPaulding County Hospital07-05-2024 Telephone encounter Note * Telephone Encounter - Katherin Schneider RN - 11/26/2023 11:34 AM EDT Please sign pended script Maryam Schneider RN [facility]07-05-2024 Miscellaneous Notes* Telephone Encounter - Katherin Schneider RN - 11/26/2023 11:34 AM EDT Please sign pended script Maryam Schneider RN documented in this encounterPaulding County Hospital06-24-2024 History of Present illness Narrative* Aidee Quintanilla [facility] - 11/15/2023 1:00 PM EDT [facility] [...] laboratory parameters, disease state markers and outcomes. Stained Glass Installer Assessment Patient confirmed: Yes Med/dose confirmed: Yes Missed doses: No Estimated days supply on hand: 1 Next cycle/dose due: 11/18/23 Copay amount: 0 Payment confirmed: Yes Delivery method: FedEx Signature required: Waived on patient request Delivery address: [address] [place] [address] Rd. Carl PA Delivery date: 11/17/23 Questions or concerns for [...] facility-administered medications on file prior to visit. [facility] Visit Assessment - Inflammatory [...] Yes Aidee Quintanilla, PharmD Clinical Pharmacist, [employer] [facility] ; Pool: P [facility] Pool #: [id number] documented in this encounterPaulding County Hospital06-20-2024 Telephone encounter Note * Telephone Encounter [...] above. Please process accordingly. Lynne Ni MD [facility]06-20-2024 Miscellaneous Notes* Telephone Encounter - Lynne [...] High total serum IgM documented in this encounterPaulding County Hospital06-20-2024 Telephone encounter Note * Telephone Encounter [...] vitamin B12 deficiency, High total serum IgM [facility]06-06-20[facility] Telephone encounter Note* Telephone Encounter - Karina Morales RN - 10/28/2023 1:33 PM EDT Pt read HEROZ message. [facility]06-06-[facility] Miscellaneous Notes* Telephone Encounter - Karina Morales RN - 10/28/2023 1:33 PM EDT Pt read HEROZ message. * Telephone Encounter - Lynne Ni [...] feel better soon! Warm Dr.Tsai oziel :) documented in this encounterPaulding County Hospital06-06-2024 Telephone encounter Note * Telephone Encounter [...] feel better soon! Warm Dr.Tsai oziel :) [facility]06-05-[facility] Nurse Note* Margret Cuenca MA - 10/27/2023 2:43 PM EDT Patient Identification confirmed: yes. Injection given and documented on JUL per provider order. Margret Cuenca MA [facility]06-05-2024 Nurse Note* Margret Cuenca MA - 10/27/2023 2:43 PM EDT Patient Identification confirmed: yes. Injection given and documented on JUL per provider order. Margret Cuenca MA documented in this encounterPaulding County Hospital05-14-2024 History of Present illness Narrative* Lynne [...] visit. Either the patient or their legal risk control representative has been informed of the risks [...] measures, may consider osteoporosis treatment if on prison steroids/abnormal bmd, take vitamin D script if [...] neurology/on metoprolol for POTs, avoid aggravating triggers, prison pain recommendations per primary care provider/pain clinic/patient [...] Due for eye exam. Labs sent to [place]/completed in 06/2021 (no results faxed to office, but patient pulled up results on her phone). Chronic current pain in neck, flank area, mid back, knees, legs, arms, all over pain. Better with lyrica 75mg 3times a day. Reports pain -12/31. Couple hrs AM stiffness. COVID vaccine [employer] 09/28/20, 10/19/20, 05/26/21. Feels safe at home. [...] COVID-19 original vaccine, age 12+ yr, monovalent ([employer] - PURPLE TOP) 09/28/2020 10/19/2020 05/26/2021 COVID-19 vaccine, age 12+ yr, 2022- season ([employer]) 02/23/2023 COVID-19 vaccine, age 12+ yr, bivalent ([employer]) 02/08/2022 Pneumovax no Flu shot no Tetanus [...] (33);NL cbc, cmp, negative hla b27; [facility] 06/2021 low vitamin D 16, vitamin b12-307;high [...] (200mg) daily with a meal Please see enterprise application administrator every 6-12months while on Hydroxychloroquine. Start azathioprine [...] touching your toes, sit-ups, using row machine prison pain recommendations per primary care provider/pain clinic [...] video & audio (virtual) or phone or dokz-ao-tccw patient care, completing clinical documentation, obtaining and/or [...] Workers' Compensation? No Do you need an injection maintenance technician? No [facility] MYCHART ZOOM MESSAGE Question 2023 11:04 [...] 3 (WITHIN +/- 5) documented in this encounterPaulding County Hospital05-09-2024 Nurse Note* Renea Schneider MA - 09/30/2023 10:53 AM EDT Patient Identification confirmed: yes. Injection given and documented on JUL per provider order. Renea Schneider MA [facility]05-01-2024 Evaluation note* Author [facility] Authored September 22, 2023 2:55pm 42-year-old female [...] switch omeprazole to pantoprazole and monitor symptoms [facility] Work Phone: 1(908) 484-733604-18-2024 Instructions* Patient Instructions* Vera Najera MD - 09/09/2023 4:47 PM EDT Follow up in 13 Weeks - labs 1 week before. B12 shot every 4 weeks. Continue Folic acid. documented in this encounterPaulding County Hospital04-18-2024 History of Present illness Narrative* Vera Najera MD - 09/09/2023 4:30 PM EDT NAME: Ariadna Haley [facility] NO.: [id number] DATE OF SERVICE: September 09, 2023 (Marquis) Some elements in this clinic note that are critical to medical decision making have been carefully reviewed and included from a prior clinic note dated: June 10, 2023 (Marquis) Referring Provider: Dr. Manuel Ferris Additional Clinicians involved in Ariadna Haley's care: VIRTUAL VISIT PROGRESS NOTE This is a virtual visit using GraphScienceer Video Call. It required patient- provider interaction for the medical decision making as documented below. I have communicated my name and active licensure. The patient's identity and physical location wereverified at the time of this visit. Either the patient or their legal risk control representative has been informed of the risks [...] lower lip done 2 days ago at [facility] - awaiting results. B12 helps especially [...] injections. Shefollows with multiple doctors including and transitions rn care coordinator, palliative senior np, manager utilization and PCP. She has been told they [...] ECOG PERFORMANCE STATUS: 0 PHYSICAL EXAMINATION: Vitals: [facility] 05/18/2022 There is no height or weight [...] CPE Hematology and Oncology Services Provided at: [place], [place] CC: Manuel Ferris MD [address] [facility] [address] documented in this encounterConnie Ville [address]-15-2024 Miscellaneous Notes* Telephone Encounter - Maynor Bryson MA - 09/06/2023 7:21 AM EDT patient has viewed the HEROZ message per Sellerout[employer]. * Telephone Encounter - Lynne Ni MD - 09/04/2023 6:30 PM EDT Please Call patient if Kextilhart note not read to review results/released to [...] accordingly. Lynne Ni MD documented in this [facility]04-09-2024 Nurse Note* Margret Cuenca MA - 08/31/2023 10:35 AM EDT Patient Identification confirmed: yes. Injection given and documented on JUL per provider order. Margret Cuenca MA documented in this [facility]04-01-2024 Nurse Note* Renea Schneider MA - 09/30/2023 10:53 AM EDT Patient Identification confirmed: yes. Injection given and documented on JUL per provider order. Renea Schneider MA documented in this [facility]03-14-2024 Nurse Note* Margret Cuenca - 08/05/2023 11:16 AM EDT Patient Identification confirmed: yes. Injection given and documented on JUL per provider order. Margret Cuenca documented in this [facility]02-20-2024 Nurse Note* Margret Cuenca - 07/13/2023 12:01 PM EST Patient Identification confirmed: yes. Injection given and documented on JUL per provider order. Margret Cuenca documented in this [facility]02-20-2024 History of Present illness Narrative* Lois [...] being cared for at the [facility] utilizing steroids, Plaquenil and injectable medic ation(Benlystal). The patient record indicating having had cardiac catheterization in [place] 3 years ago which was normal. I have the report available for my review. [facility] [...] treated by rheumatology at the [facility] on steroids, Plaquenil and monoclonal [...] , Rfl: ergocalciferol (Vitamin D-2) 1.25 MG (72897 UT) capsule, Take 1 capsule (50,000 Units) [...] exam, discussion and plan. documented in this encounterOhio[facility] Work Phone: 1(799) 301-324502-20-2024 Instructions* Patient Instructions* Lila Tejeda LPN - [...] time of your visit. documented in this encounterOhioHealth [facility] Work Phone: 1(192) 907-636102-13-2024 History of Present illness Narrative* Kade Richardson [...] , Rfl: ergocalciferol (Vitamin D2) 1.25 MG (29568 UT) capsule, Take 50,000 Units by mouth [...] Chronic laryngopharyngitis COVID-19 vaccine administered x 2 ([employer]oci[employer]) History of removal of cyst 2013 tailbone [...] reflexes: Stu's absent. Ankle clonus absent. Coordination Cjewci-xe-gnww, rapid alternating movements and ikmt-jw-fcnt normal bilaterally without dysmetria. Gait Normal casual, toe, heel and tandem gait. Romberg is absent. Assessment/Plan Diagnoses and all orders for this visit: Autoimmune disease ([facility]) - Protein electrophoresis, serum; Future - Protein [...] Lyrica 100 mg TID. She is on jnxelzoxsr19 mg once daily. Increase prednisone 10 mg BID for 10 days. documented in this encounterEllis Fischel Cancer [id number] History of Present illness Narrative* Michelle Jasmine, SENIOR NURSE MANAGER-RADIOLOGY SPECIAL PROCEDURE TECH - 06/09/2023 8:30 AM EST Ariadna Haley is a 42 y.o. female that presents to the office today for new patient evaluation asself referral for palpitations and elevated heart rates. She has a PMH of HTN, HLD, tachycardia, anemia, JOSE RAFAEL with CPAP compliance, lupus, autonomic dysfunction, arthritis, chronic back pain. She has undergone cardiac workup in the past in [place] as noted below. She also states that she follows withNeurology for possible POTS syndrome. Admits to daily tobacco use, 1 pack of cigarettes per day. Denies vaping, ETOH, recreational drugs. Admits to drinking approximately 1 pot of coffee per day. Denies daily exercise. 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 Family history negative [...] , Rfl: ergocalciferol (Vitamin D-2) 1.25 MG (42744 UT) capsule, Take 1 capsule (50,000 Units) [...] Anemia, unspecified Anxiety Autonomic dysfunction Depression, recurrent ([facility]) Discoid lupus erythematosus Chronic bilateral low back pain with bilateral sciatica Hyperlipidemia Obesity, Class III, BMI 40-49.9 (morbid obesity) ([facility]) Obstructive sleep apnea syndrome Arthritis Tachycardia Vitamin [...] prepare this document. documented in this [facility] Work Phone: [phone]) 449-418201-03-2024 Instructions* Patient Instructions* Christie Phan MD - 05/26/2023 5:43 PM EST Images from the original note were not included. https://Bimbasket/tofu-bolognese/ https://nutritionstudies.org/twm-dp-jdsgmmgdb-cyvvzlzk-fm-qshmq-w-menck-zuee-randee wi-mwndb-rltlhxlkn/ https://www.Microarrays/blog/plantbasedkids https://USDS/hhqht-cvnzf-xkcc-for-kids/ https://Confabb/aui-is-cfnbnhrdyu-bigx-jpca-lz-z-qxsrk-twybu-diet/ WHAT TO EAT? Breakfast: Overnight Oats Base ingredients: 1/3 cup rolled oats, 1/3 cup plain almond milk, 1tsp kyle seeds. Optional add-ins: cinnamon, flax seeds, honey or maple syrup, nut butter, chopped nuts. Toppings: Any fresh fruit chopped. Mix together and place in refrigerator. Can make 5 at a time for the whole week. Homemade fresh oatmeal. Can also make in the crockpot. Rwandan muffin/almond butter topped with fresh berries Rwandan muffin, cooked egg/egg white, tomato, thin slice macedonian cheese Fresh berries, hard boiled egg, whole wheat toast Plain yogurt topped with berries, unsalted nuts, drizzle of honey Whole grain toast/Rwandan muffin topped with mashed avocado and tomatoes Lunch: Dinner leftovers packed in Tupperware, side of fruit Salad mixture topped with a protein (chick breast/tuna/hard boiled egg/beans), dressing and side offruit Dinner - Refer to plate assortment planner pictures to help select foods and portion ratios of protein, vegetables/starches. Keep it simple and rotate your favorite meals. Sheet nix meals Soups Grilled protein/vegetables/side of starch (plate assortment planner picture) Stir can with protein, mixed vegetables, and riced cauliflower or portion controlled whole grain rice. Make your own bowls - Yakut/Icelandic/ theme [place] with Zoodles (spiralized vegetable noodles). Roasted vegetable wraps Alter traditional recipes to reflect HIGH QUALITY ingredients in the right QUANTITIES. Snacks - portion controlled: Raw veggies (can have with hummus, mashed avocado, salsa). Unsalted nuts Fruit (1 serving). (optional side of peanut butter) Air pop popcorn [place] and low fat macedonian cheese rolled up String cheese Protein balls (mix rolled oats, nut butter, flax seeds, dash almond milk). Beverages: Water Coffee, Hot tea Unsweetened ice tea EATING OUT: Research menu online, include nutritional information. Make your order decision before getting to restaurant. Stick to recommended portions (plate assortment planner picture). Ask for substitutions or modifications. [...] baked potato, sprouted grain bread, chick peas https://www.DigitalMR.com/article/1562243/tbrldrbxuxjcc-siqo-wzbx-for-beginners / https://www.eatingGuardian Healthcare.com/category/4274/bxqepvgqzxdax-fksn-oycdbv/ https://www.eatingGuardian Healthcare.com/category/4300/rqfwkmgfxpnfp-fqyv-lhoc-plans/ My current favorite cookbooks are documented in this encounterPaulding County Hospital01-03-2024 History of Present illness Narrative* Christie Phan MD - 05/26/2023 5:00 PM EST Images from the original note were not included. [facility] Follow-Up Appointment [...] refer to nutrition to work towards a [facility] diet Plan Diagnoses and all [...] the date of the service which included vjbk-px-wkaj patient care, completing clinical documentation, performing a medically appropriate examination, counseling and educating the patient/family/caregiver, and ordering medications, tests, or procedures. Christie Phan MD, MA, [facility] Lifestyle Medicine Specialist documented in this encounterPaulding County Hospital12-04-2023 Miscellaneous Notes* Telephone Encounter - Renate Lawrence MA - 04/26/2023 5:26 PM EST Medication pending with new pharmacy information. documented in this encounterPaulding County Hospital12-04-2023 History of Present illness Narrative* Christie Phan MD - 04/26/2023 4:15 PM EST Images from the original note were not included. [facility] Virtual Follow-Up [...] the date of the service which included yryq-mc-rtqm patient care, completing clinical documentation, performing a medically appropriate examination, counseling and educating the patient/family/caregiver, and ordering medications, tests, or procedures. I have communicated my name and active licensure. The patient's identity and physical location wereverified at the time of this visit. Either the patient or their legal risk control representative has been informed of the risks and benefits of -- and alternatives to -- treatment through a remote evaluation andconsents to proceed with the evaluation remotely. Christie Phan MD, MA, [facility] Lifestyle Medicine Specialist documented in this encounterPaulding County Hospital12-04-2023 Nurse Note* Renaet Lawrence MA - 04/26/2023 2:46 PM EST Spoke to Ariadna Haley, confirmed patient is registered on Certeon and is prepared for their appointment. Confirmed the patient has updated medications, allergies, and questionnaires via Certeon. Informed patient if there is an issue with the connection, provider will send the patient a secure link. If provider is running late, patient should remain connected to the visit. Patient verbalized understanding. documented in this [facility]11-30-2023 Miscellaneous Notes* Telephone Encounter - Enma Hamm, RN - 04/22/2023 3:48 PM EST Pt called for Iron results; possible need for transfusion. Pt aware no need for iron infusion at this time. Enma Hamm, RN documented in this [facility]11-24-2023 History of Present illness Narrative* Kenzie Shannon - 04/16/2023 10:55 AM EST Patient Identification confirmed: yes. Injection given and documented on JUL per provider order. Kenzie Shannon documented in this [facility]10-27-2023 History of Present illness Narrative* Kenzie Shannon - 03/19/2023 11:06 AM EDT Patient Identification confirmed: yes. Injection given and documented on JUL per provider order. Kenzie Shannon documented in this [facility]10-24-2023 History of Present illness Narrative* Marija Ziegler - 03/16/2023 10:13 AM EDT CMN RECEIVED BY [employer] VIA FAX, COMPLETED, AND PLACED IN PROVIDER MAILBOX FOR SIGNATURE On 2022 By Marija Ziegler Offset Machine Operator II. [employer] SENDING CMN: JOSH SIGNED AND DATED CMN, FAXED TO DME & CONFIRMATION PAGE RECEIVED: 03.24.23 documented in this [facility]10-19-2023 History of Present illness Narrative* Beatriz [...] LPN In Department: RHEUMATOLOGY documented in this encounterPaulding County Hospital10-18-2023 Miscellaneous Notes* Telephone Encounter - Christie Phan MD - 03/10/2023 2:18 PM EDT Spoke with patient. We stopped her trulicity because of side effects. She only took the cymbalta for a week. She will restart and we will see how she is doing in 2 months. Have also ordered insulin labs to check for insulin resistance. documented in this encounterPaulding County Hospital10-09-2023 Miscellaneous Notes* Telephone Encounter - Lynne Ni MD - 03/01/2023 3:27 PM EDT For chart: Eye exam 02/26/23 no ocular complication related to medication. * Telephone Encounter - Beatriz Sanchez LPN - 03/01/2023 2:38 PM EDT [facility] Placed on your desk for review. documented in this encounterPaulding County Hospital09-29-2023 Nurse Note* Radha Kebede MA - 02/19/2023 11:48 AM EDT Patient Identification confirmed: yes. Injection given and documented on JUL per provider order. Radha Schofield MA documented in this encounterPaulding County Hospital09-29-2023 Instructions* Patient Instructions* Vera Najera MD - 02/19/2023 11:40 AM EDT B12 shot today and every 4 weeks. Continue Folic acid. Follow up in 8 Weeks - labs 1 week before. documented in this encounterPaulding County Hospital09-29-2023 History of Present illness Narrative* Vera Najera MD - 02/19/2023 11:32 AM EDT Images from the original note were not included. AMBULATORY TELEPHONE VISIT Ariadna Haley has consented to this telephone encounter. Persons Present: Patient and myself Chief Complaint/Reason: Anemia; To review recent blood work. HPI: Total Time Spent: 21 minutes Rebekah Rojas APRN.RADIOLOGY SPECIAL PROCEDURE TECH NAME: Ariadna Haley CLINIC NO.: [id number] DATE OF SERVICE: February 19, 2023 (Marquis) [...] lower lip done 2 days ago at [facility] - awaiting results. B12 helps especially [...] injections. Shefollows with multiple doctors including and transitions rn care coordinator, palliative senior np, manager utilization and PCP. She has been told they [...] which included preparing to see the patient, idao-sz-azla patient care, completing clinical documentation, performing a medically appropriate examination, counseling and educating the patient/family/caregiver, ordering medications, tests, or p rocedures, and independently interpreting results (not separately reported). Vera Najera MD, CPE Hematology and Oncology Services Provided at: [place], [place] CC: Manuel Ferris MD [address] [facility] [address] documented in this encounterPaulding County Hospital09-26-2023 Miscellaneous Notes* Telephone Encounter - Lynne [...] NICKIE VIDEO SPEC EST 08/12/2023 9:00 AM [facility] Last Ophthalmology Check [...] diagnoses: Vitamin D deficiency documented in this encounterPaulding County Hospital09-18-2023 Miscellaneous Notes* Telephone Encounter - AvajabariMirela - 02/08/2023 11:12 AM EDT Spoke with patient Will get labs done when she does labs in Dec for Dre/Onc Mailed orders for DXA to pt so she can go to [facility] Pre cert Benlyst Scheduled Teaching visit [...] density (1st time) patient requests order for [place] Please schedule follow up office visit for [...] accordingly. Lynne Ni MD documented in this encounterPaulding County Hospital09-14-2023 History of Present illness Narrative* Carlene Rendon - 02/04/2023 9:31 AM EDT [facility] received prescription(s) for Benlysta from Dr. Ni. Benefits investigation was conducted, indicating that a prior authorization is required by patients plan with [facility]. Encounter will be updated once prior authorization has been submitted by [facility]. Carlene Rendon CPhT [facility], Inflammatory P: [phone] F: [phone] documented in this encounterPaulding County Hospital09-14-2023 History of Present illness Narrative* Lynne [...] visit. Either the patient or their legal risk control representative has been informed of the risks [...] Due for eye exam. Labs sent [place]/completed in 06/2021 (no results faxed to office, but patient pulled up results on her phone). Chronic current pain in neck, flank area, mid back, knees, legs, arms, all over pain. Better with lyrica 75mg 3times a day. Reports pain 4-12/31. Couple hrs AM stiffness. COVID vaccine [employer] 09/28/20, 10/19/20, 05/26/21. Feels safe at home. [...] pain: yes H/o precedent/frequent infection(s): as above Enthesopathy/Hamilton's/heel/plantar tenderness: hands random painful/tingling Skin thickening, psoriasis, [...] COVID-19 original vaccine, age 12+ yr, monovalent ([employer] - PURPLE TOP) 09/28/2020 10/19/2020 05/26/2021 COVID-19 vaccine, age 12+ yr, bivalent ([employer]) 02/08/2022 Pneumovax no Flu shot no Tetanus [...] (33);NL cbc, cmp, negative hla b27; [place] 06/2021 low vitamin D 16, vitamin b12-307;high [...] organ involvement (HCC) (primary encounter diagnosis) R76.8 CHRISTAIN positive Z83.79 Family history of Crohn's disease [...] rate M25.531, M25.532 Bilateral wrist pain Z79.52 nursing home current use of systemic steroids M81.8, T38.0X5A [...] questions and concerns, patient voiced understanding. RECOMMENDATION/PLAN: [facility] on 02/04/23 DXA-AXIAL SKELETON [...] (200mg) daily with a meal Please see enterprise application administrator every 6-12months while on Hydroxychloroquine. Start azathioprine [...] video & audio (virtual) or phone or gwwj-xb-nplu patient care, completing clinical documentation, obtaining and/or [...] cc Gay Enciso CNP;Dr.Douglas Sai Ferris MD [facility] INTAKE QUESTIONNAIRE Question 02/02/2023 10:32 [...] Workers' Compensation? No Do you need an injection maintenance technician? No [facility] MYCHART ZOOM MESSAGE Question 02/02/2023 10:32 [...] Yes Memory Loss: No Swollen Glands: Yes [facility] SLAQ QUESTIONNAIRE Question 02/02/2023 10:38 PM EDT [...] SLAQ Score (range: 0 - 47) 24 [facility] PROVIDER UNDERSTANDING CURRENT HEALTH RHEUMATOLOGY Question 02/02/2023 [...] < or = 5) documented in this encounterPaulding [facility] Hospital09-14-2023 Instructions* Patient Instructions* Lynne Ni MD [...] (200mg) daily with a meal Please see enterprise application administrator every 6-12months while on Hydroxychloroquine. azathioprine daily [...] your usual activities immediately. documented in this encounterPaulding County Hospital09-05-2023 Miscellaneous Notes* Telephone Encounter - Maynor Bryson MA - 01/26/2023 7:46 AM EDT patient has viewed the HEROZ message per [employer]. * Telephone Encounter - Lynne Ni MD - 01/24/2023 8:04 PM EDT Please Call patient if Certeon note not read to review results/released to [...] taking 2tabs daily for a few months) 6/1/23 normal TPMT activity. 10/15/22 high wbc 11.93, [...] accordingly. Lynne Ni MD documented in this encounterPaulding County Hospital09-01-2023 Nurse Note* Radha Kebede MA - 01/22/2023 12:17 PM EDT Patient Identification confirmed: yes. Injection given and documented on JUL per provider order. Radha Schofield MA documented in this encounterPaulding County Hospital08-22-2023 Miscellaneous Notes* Telephone Encounter - Christie [...] the above prescription(s) to electronically send to [facility] pharmacy. Milagro Mendiola MA documented in this encounterPaulding County Hospital08-11-2023 History of Present illness Narrative* Misty Nelson MD - 01/01/2023 10:51 AM EDT VIRTUAL VISIT PROGRESS NOTE This is a virtual visit using Certeon video visit. It required patient-provider interaction for themedical decision making as documented below. I have communicated my name and active licensure. The patient's identity and physical location wereverified at the time of this visit. Either the patient or their legal risk control representative has been informed of the risks [...] otitis or sinusitis No pneumonia She sees palliative senior np and was diagnosed with lupus She is on Plaquenil, azathioprine Prednisone 10mg once daily for the past year; every few months she gets treated with higher doses of prednisone for flares of her symptoms The medications seem to help the body aches She saw the zoology teacher Treated with B12 and folic acid [...] visit. Misty Nelson MD documented in this encounterPaulding County Hospital07-28-2023 Miscellaneous Notes* Telephone Encounter - Rebekah Rojas APRN.CNP - 12/18/2022 10:48 AM EDT Spoke with patient this morning, 12/18/2022. Rebekah Rojas APRN.TRUE * Telephone Encounter - Lidia Argueta RN - 12/18/2022 9:31 AM EDT Pt called senior front end engineer service last evening stating she was suppose to have a phone call with Rebekah at 330 and never received a call. Pt is still waiting (536 pm 12/17/22). Please advise Lidia Argueta RN documented in this encounterPaulding County Hospital07-28-2023 History of Present illness Narrative* Rebekah [...] Total Time Spent: 21 minutes Rebekah Rojas APRN.RADIOLOGY SPECIAL PROCEDURE TECH NAME: Ariadna Haley CLINIC NO.: [id number] DATE OF SERVICE: October 22, 2022 (Marquis) [...] lower lip done 2 days ago at [facility] - awaiting results. B12 helps especially [...] injections. Shefollows with multiple doctors including and transitions rn care coordinator, palliative senior np, manager utilization and PCP. She has been told they [...] which included preparing to see the patient, xftv-np-detv patient care, completing clinical documentation, performing a medically appropriate examination, counseling and educating the patient/family/caregiver, ordering medications, tests, or p rocedures, and independently interpreting results (not separately reported). Vera Najera MD, CPE Hematology and Oncology Services Provided at: [place], [place] CC: Manuel Ferris MD [address] [facility] [address] documented in this encounterPaulding County Hospital07-26-2023 Miscellaneous Notes* Telephone Encounter - Pamella Bettencourt RN - 12/16/2022 1:14 PM EDT Pt notified and verbalizes understanding. Clerical: Please change tomorrow's appointment to a phone visit at the end of Rebekah's day. Preferred number is [phone]. In addition, pt will be in next [...] prefer we switch her toVik's schedule? Pamella Bettencoutr RN documented in this encounterPaulding County Hospital07-23-2023 Miscellaneous Notes* Telephone Encounter - Vera [...] advise Enma Hamm RN documented in this encounterPaulding County Hospital07-04-2023 Miscellaneous Notes* Telephone Encounter - Lynne [...] accordingly. Lynne Ni MD documented in this encounterPaulding County Hospital06-29-2023 Nurse Note* Margret Cuenca - 11/19/2022 11:01 AM EDT Patient Identification confirmed: yes. Injection given and documented on JUL per provider order. Margret Cuenca documented in this encounterPaulding County Hospital06-01-2023 Nurse Note* Stacy Gutiérrez Ma - 10/22/2022 11:50 AM EDT Patient Identification confirmed: yes. Injection given and documented on JUL per provider order. Stacy Gutiérrez Ma documented in this [facility]06-01-2023 Instructions* Patient Instructions* Vera Najera MD - 10/22/2022 11:43 AM EDT B12 Shot today and every 4 weeks. Continue Folic acid. Follow up in 8 Weeks - labs 1 week before. documented in this encounterPaulding County Hospital06-01-2023 History of Present illness Narrative* Vera Najera MD - 10/22/2022 11:35 AM EDT Images from the original note were not included. NAME: Jose Carlosfrancisco javierAriadna [facility] NO.: [id number] DATE OF SERVICE: October 22, 2022 (Marquis) Some elements in this clinic note that are critical to medical decision making have been carefully reviewed and included from a prior clinic note dated: August 27, 2022 (Bob) Referring Provider: Dr. Manuel Ferris Additional Clinicians involved in Ariadnasusan Haley's care: DIAGNOSIS: Multiple symptoms ASSESSMENT: 42 [...] lower lip done 2 days ago at [facility] - awaiting results. B12 helps especially [...] injections. Shefollows with multiple doctors including and transitions rn care coordinator, palliative senior np, manager utilization and PCP. She has been told they [...] which included preparing to see the patient, rpfh-cr-xsgx patient care, completing clinical documentation, performing a medically appropriate examination, counseling and educating the patient/family/caregiver, ordering medications, tests, or p rocedures, and independently interpreting results (not separately reported). Vera Najera MD, CPE Hematology and Oncology Services Provided at: [place], [place] CC: Manuel Ferris MD [address] [facility] [address] documented in this encounterPaulding County Hospital05-04-2023 Nurse Note* Stacy Gutiérrez Ma - 09/24/2022 10:22 AM EDT Patient Identification confirmed: yes. Injection given and documented on JUL per provider order. Stacy Gutiérrez Ma documented in this encounterPaulding County Hospital04-18-2023 Miscellaneous Notes* Telephone Encounter - Stacy Hernandez - 09/08/2022 2:27 PM EDT Pharmacy-Reviewed Medication History Patient Name:.Ariadna Haley : 1980 Patient Contact Attempt: First attempt Adherence Packing Program Accepted? No, patient does not wish to participate. Patient is not eligible for adherence packaging because PCP is not within [facility]. Patient wishes to continue at [facility] since medication bottles will look the same and then she can pick-up the medications when she needs them. Stacy Hernandez September 08, 2022 2:28 PM [facility] [phone] documented in this encounterPaulding County Hospital04-17-2023 History of Present illness Narrative* Christie Phan MD - 09/07/2022 2:00 PM EDT Images from the original note were not included. [facility] Virtual Follow-Up [...] which included preparing to see the patient, fzgz-cj-navs patient care, completing clinical documentation, performing a medically appropriate examination, counseling and educating the patient/family/caregiver, ordering medications, tests, or p rocedures, and communicating with other HCPs (not separately reported). I have communicated my name and active licensure. The patient's identity and physical location wereverified at the time of this visit. Either the patient or their legal risk control representative has been informed of the risks and benefits of -- and alternatives to -- treatment through a remote evaluation andconsents to proceed with the evaluation remotely. Christie Phan MD, MA, [facility] Lifestyle Medicine Specialist documented in this encounterPaulding County Hospital04-17-2023 Nurse Note* Milagro Mendiola MA - 09/07/2022 2:00 PM EDT Called pt to do intake for video visit pt unavailable lft vm msg sent my chart. Milagro Mendiola MA documented in this encounterPaulding County Hospital04-10-2023 Miscellaneous Notes* Telephone Encounter - Shantel Higgins MA - 08/31/2022 8:38 AM EDT called [facility] pharmacy - pharmacy had 1 refill remaining no action needed from our office documented in this encounterPaulding County Hospital04-06-2023 Nurse Note* Stacy Gutiérrez Ma - 08/27/2022 10:31 AM EDT Patient Identification confirmed: yes. Injection given and documented on JUL per provider order. Stacy Gutiérrez Ma documented in this encounterPaulding County Hospital04-06-2023 History of Present illness Narrative* Rebekah Rojas APRN.TRUE - 08/27/2022 10:00 AM EDT Images from the original note were not included. NAME: Ariadna Haley CLINIC NO.: [id number] DATE OF SERVICE: August 27, 2022 (Bob) [...] injections. Shefollows with multiple doctors including and transitions rn care coordinator, palliative senior np, manager utilization and PCP. She has been told they [...] stomach other (Crohn's [Other]) Mother Rebekah Rojas, SENIOR NURSE MANAGER.[facility] Hematology and Oncology Services Provided at: [place], [place] CC: Manuel Ferris MD [address] [facility] [address] I spent a total of 30 minutes on the date of the service which included preparing to see the patient, ifxh-dd-nldm patient care, completing clinical documentation, obtaining and/or reviewing separately obtained history, performing a medically appropriate examination, counseling and educating the pat ient/family/caregiver, ordering medications, tests, or procedures, independently interpreting results (not separately reported), and communicating results to the patient/family/caregiver. documented in this encounterPaulding County Hospital03-29-2023 Miscellaneous Notes* Telephone Encounter - Freda [...] low vitamin b12- take over the counter 0974-1462 mcg daily. Improved/ normal rest of rheum [...] accordingly. Lynne Ni MD documented in this encounterPaulding County Hospital03-28-2023 Miscellaneous Notes* Telephone Encounter - Beatriz [...] accordingly. Lynne Ni MD documented in this encounterPaulding County Hospital03-20-2023 Miscellaneous Notes* Telephone Encounter - Christie Phan MD - 08/10/2022 9:46 AM EDT [facility] requesting refill, patient never started according to the chart and I have not seen her in follow-up. * Telephone Encounter - Jami Everett Cma - 08/10/2022 7:40 AM EDT [facility] Pharmacy request for the following refill(s): Requested Prescriptions Pending Prescriptions Disp Refills DULoxetine (CYMBALTA) 20 mg capsule [Pharmacy Med Name: DULOXETINE HCL DR 20 MG CAP] 30 capsule 2 Sig: TAKE 1 CAPSULE BY MOUTH ONCE DAILY Please review and advise. Jami Everett Cma documented in this encounterPaulding County Hospital03-06-2023 Instructions* Patient Instructions* Lexus Heck APRN.RADIOLOGY SPECIAL PROCEDURE TECH - 07/27/2022 9:12 PM EST Images from the original note were not included. Your most recent body mass index (BMI) that we have on record is 40.56 kg/m2. Obstructive sleep apnea (JOSE RAFAEL) worsens with an increase in weight; reduction in weight may improve or resolve your JOSE RAFAEL. Ifyou are not already seeking treatment, there are resources available at the [facility] such as a nutrition consultation or referral to weight management programs at our [facility]. Please let us know if we can assist with a referral. - Continue CPAP at 5-15 cmH2O. - Remember to clean your mask and equipment regularly, as directed. - You should be eligible for new supplies approximately every 3-6 months, depending on your insurance coverage. Contact your [employer] (DME) company for new supplies. [...] the central scheduling system for the [facility] at [phone]. [employer] now offers direct scheduling for patients to schedule appointments. Virtual visits are also available. If not covered by your insurance, there is a 35% discount. Please contact your insurance to determine coverage. Call the office at [phone], option #5 for questions. documented in this encounterPaulding County Hospital03-06-2023 History of Present illness Narrative* Lexus Heck APRN.CNP - 07/27/2022 10:30 AM EST Images from the original note were not included. [facility] Virtual Visit Follow [...] will have a prescription sent to a [employer] medical [employer]) company - [employer] who will be calling you in the next 1-2 weeks or so. Please call them directly or us if you do not hear from them in this time frame. - Will request formal mask fitting - You should be eligible for new supplies approximately every 3-6 months, depending on your insurance coverage. - If your mask doesn't fit well, call the [employer] company before 30 days are up to [...] ensure the besttime for you. [facility] on 04/13/22 CONSULT TO SLEEP MEDICINE - ADULT CPAP/BIPAP/OTHER PAP THERAPY ORDER Lawanda Miranda MD Interval history : Here for follow up for sleep apnea management. SLEEP APNEA Sleep apnea type : JOSE RAFAEL Most Recent Apnea-Hypopnea Index (AHI): 5.3 Treatment : PAP therapy DME: Josh MOJICA fax: [phone] [facility] ph: [phone] PAP History: Current PAP settin-15 cm H2O. [...] or near accidents due to drowsy drivin [place] Sleepiness Scale 04/12/2022 07/23/2022 Score 4 (No [...] medications, tests, or procedures. documented in this encounterPaulding County Hospital03-03-2023 Miscellaneous Notes* Telephone Encounter - Kyara [...] complete patient specific tasks. documented in this encounterPaulding County Hospital03-01-2023 Miscellaneous Notes* Telephone Encounter - Gem Mercedes RN - 07/22/2022 2:37 PM EST [employer] message sent documented in this encounterPaulding County Hospital12-28-2022 History of Present illness Narrative* Kenzie Shannon - 05/20/2022 2:28 PM EST Patient Identification confirmed: yes. Injection given and documented on JUL per provider order. Kenzie Shannon documented in this encounterPaulding County Hospital12-28-2022 Miscellaneous Notes* Addendum Note - Vera Najera MD - 05/20/2022 2:27 PM ESTAddended by: VERA NAJERA on: 05/20/2022 02:27 PM Modules accepted: Orders documented in this encounterPaulding County Hospital12-28-2022 Instructions* Patient Instructions* Vera Najera MD - 05/20/2022 2:23 PM EST B12 Shot Today and every 4 weeks Get fit for CPAP mask and setting this 05/28/2021 Continue Folic acid. RTC in 8 Weeks - labs 1 week before. documented in this encounterPaulding County Hospital12-28-2022 History of Present illness Narrative* Vera Najera MD - 05/20/2022 1:30 PM EST Images from the original note were not included. NAME: Jose Carlosfrancisco javierAriadna CLINIC NO.: [id number] DATE OF SERVICE: May 20, 2022 (Marquis) [...] (BLOOD), URIC ACID BLOOD, CALCIUM IONIZED BLOOD, KAPPA/FARMRE,FREE,SER (R70.0) Elevated sed rate (R40.0) Somnolence, daytime [...] which included preparing to see the patient, rjxg-jf-ejur patient care, completing clinical documentation, performing a medically appropriate examination, counseling and educating the patient/family/caregiver, ordering medications, tests, or p rocedures, and independently interpreting results (not separately reported). Vera Najera MD, [facility] Hematology and Oncology Services Provided at: [place], [place] CC: Vera Najera [address] [place] [address] [place] [address] Manuel Ferris MD, [address] [facility] [address] CC: Manuel Ferris MD [address] [facility] [address] documented in this encounterPaulding County Hospital12-13-2022 Miscellaneous Notes* Telephone Encounter - Gem Mercedes RN - 05/05/2022 2:39 PM EST Faxed order, office notes, demographics, and sleep study to: DME name: Josh Reese DME fax: [phone] DME ph: [phone] Confirmation received. documented in this encounterPaulding County Hospital12-13-2022 Miscellaneous Notes* Telephone Encounter - Gem Mercedes RN - 05/05/2022 12:00 PM EST ALOHAt message sent documented in this encounterPaulding County Hospital12-13-2022 Miscellaneous Notes* Telephone Encounter - ANALILIA Monterroso - 05/05/2022 11:36 AM EST [facility] received your PAP order. Due to a major [employer] recall and manufacturing shortage, we are unable to fulfill the request to provide your patient with a CPAP/BIPAP machine at this time. We will keep the request on file and provide when inventory is available or you can forward the order to another DME provider such as [employer], [employer] or [employer]. Caring for our patients is our top priority and we apologize for this delay. Thank you for your patience during this time. [phone] #1 documented in this encounterPaulding County Hospital12-02-2022 Miscellaneous Notes* Telephone Encounter - Ny [...] doctor has noted concern for EDS. Her palliative senior np has told her that she has Lupus. Based on her history, I noted we can offer in-person evaluations for herself and/or her son to see if any genetic testing may be useful. I validated and provided support on the difficulty with her ambulation and transport concerns. [facility] noted[facility] and only available at [facility]. I offered social work and/or transport assistance for the visit. She declined this and will discuss with her regarding the transport. She verbalized understanding the reasons for in-person evaluation recommended. She has the [facility] line and will call to reschedule for an in-person evaluation at [facility]. Ny Lance MD Sailor, Associate Staff [facility] documented in this encounterPaulding County Hospital11-30-2022 Miscellaneous Notes* Telephone Encounter -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 High total serum IgM Chronic fatigue and malaise Chronic fatigue syndrome [facility] Diagnosis JOSE RAFAEL (obstructive sleep apnea)- Primary Obstructive sleep apnea (adult) (pediatric) [facility] Diagnosis Other systemic lupus erythematosus [...] of other medications [facility] Diagnosis Megaloblastic anemia due to vitamin B12 deficiency- Primary Other vitamin B12 deficiency anemia Elevated sed rate Elevated sedimentation rate [facility] Diagnosis Megaloblastic anemia due to vitamin B12 deficiency- Primary Other vitamin B12 deficiency anemia Elevated sed rate Elevated sedimentation rate High total serum IgM Chronic fatigue and malaise Chronic fatigue syndrome JOSE RAFAEL (obstructive sleep apnea) Obstructive sleep apnea (adult) (pediatric) [facility] Diagnosis Vitamin D deficiency Unspecified vitamin D deficiency [facility]* Diagnosis Obesity, Class III, BMI >= 40- Primary Morbid obesity Polypharmacy Encounter for long-term (current) use of other medications Pre-diabetes Other abnormal glucose [facility] Diagnosis Megaloblastic anemia due to vitamin B12 deficiency- Primary Other vitamin B12 deficiency anemia Elevated sed rate Elevated sedimentation rate [facility] Diagnosis Megaloblastic anemia due to vitamin B12 deficiency- Primary Other vitamin B12 deficiency anemia Elevated sed rate Elevated sedimentation rate [facility] note* Diagnosis Megaloblastic anemia due to vitamin B12 deficiency- Primary Other vitamin B12 deficiency anemia Elevated sed rate Elevated sedimentation rate High total serum IgM Chronic fatigue and malaise Chronic fatigue syndrome Obstructive sleep apnea syndrome Obstructive sleep apnea (adult) (pediatric) [facility] Diagnosis Megaloblastic anemia due to vitamin B12 deficiency- Primary Other vitamin B12 deficiency anemia Elevated sed rate Elevated sedimentation rate [facility] Diagnosis Other systemic lupus erythematosus with other organ involvement (HCC) Encounter for prison 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 Encounter for long-term (current) use of other medications [facility] Diagnosis Megaloblastic anemia due to vitamin B12 deficiency- Primary Other vitamin B12 deficiency anemia Chronic fatigue and malaise Chronic fatigue syndrome [facility] Diagnosis High total serum IgM- Primary Low serum IgG for age Current smoker Tobacco use disorder [facility] Diagnosis Obesity, Class II, BMI 35-39.9 Obesity, unspecified Prediabetes Other abnormal glucose [facility] Diagnosis Megaloblastic anemia due to vitamin B12 deficiency- Primary Other vitamin B12 deficiency anemia Elevated sed rate Elevated sedimentation rate [facility] Diagnosis Other systemic lupus erythematosus with other organ involvement (HCC)- Primary Vitamin D deficiency Unspecified vitamin D deficiency Elevated LFTs Other abnormal blood chemistry Anemia of chronic disease Anemia of other chronic disease Elevated sed rate Elevated sedimentation rate Elevated C-reactive protein (CRP) [facility] Diagnosis Other systemic lupus [...] Bilateral wrist pain 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, forearm nursing home current use of systemic steroids Encounter for [...] Elevated sedimentation rate [facility] Diagnosis Other systemic lupus erythematosus [...] Elevated sedimentation rate [facility] Diagnosis Megaloblastic anemia due to vitamin B12 deficiency- Primary Other vitamin B12 deficiency anemia Elevated sed rate Elevated sedimentation rate Chronic fatigue and malaise Chronic fatigue syndrome High total serum IgM JOSE RAFAEL (obstructive sleep apnea) Obstructive sleep apnea (adult) (pediatric) [facility]* Diagnosis Insulin resistance, unspecified- Primary [...] Other chronic pain [facility] Diagnosis Obesity, Class III, BMI >= 40 Morbid obesity [facility] Diagnosis Obesity, Class III, BMI >= 40- Primary Morbid obesity Other chronic pain [facility] Diagnosis Irregular heart rate- Primary Essential hypertension Unspecified essential hypertension Autonomic dysfunction Obstructive sleep apnea syndrome Obstructive sleep apnea (adult) (pediatric) Primary hypertension Unspecified essential hypertension documented in this encounter [facility] Work Phone: Evaluation note* Diagnosis Autoimmune disease (CMS/HCC)- Primary Autoimmune disease, not elsewhere classified Autonomic dysfunction Lumbosacral radiculopathy Thoracic or lumbosacral neuritis or radiculitis, unspecified Bilateral leg weakness Muscle weakness (generalized) [facility] Diagnosis Shortness of breath- Primary Paroxysmal supraventricular tachycardia PAC (premature atrial contraction) Supraventricular premature beats Current smoker Systemic lupus erythematosus, unspecified SLE type, unspecified organ involvement status (CMS/HCC) Palpitations Obstructive sleep apnea syndrome Obstructive sleep apnea (adult) (pediatric) Morbid obesity (CMS/HCC) Morbid obesity Bilateral lower extremity edema documented in this encounter [facility] Work Phone: Evaluation note* Diagnosis Megaloblastic anemia due to vitamin B12 deficiency- Primary Other vitamin B12 deficiency anemia Elevated sed rate Elevated sedimentation rate [facility] Diagnosis Systemic lupus erythematosus with other organ involvement (HCC)- Primary [facility] Diagnosis Systemic lupus erythematosus with other organ involvement (HCC)- Primary [facility] Diagnosis Megaloblastic anemia due to vitamin B12 deficiency- Primary Other vitamin B12 deficiency anemia Elevated sed rate Elevated sedimentation rate [facility] Diagnosis Other systemic lupus erythematosus with other organ involvement (HCC)- Primary Vitamin D deficiency Unspecified vitamin D deficiency Elevated LFTs Other abnormal blood chemistry Anemia of chronic disease Anemia of other chronic disease Elevated sed rate Elevated sedimentation rate Elevated C-reactive protein (CRP) [facility] Diagnosis Megaloblastic anemia due [...] other medications Long-term use of high-risk medication nursing home current use of systemic steroids Encounter for [...] with other organ involvement (HCC) Encounter for prison 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 Encounter for long-term [...] apnea (adult) (pediatric) [facility] Diagnosis Elevated LFTs- Primary Other abnormal blood chemistry Elevated C-reactive protein (CRP) Elevated sed rate Elevated sedimentation rate Vitamin D deficiency Unspecified vitamin D deficiency Screening-pulmonary TB Screening examination for pulmonary tuberculosis [facility] Diagnosis Other systemic lupus erythematosus with other organ involvement (HCC) [facility] Diagnosis Systemic lupus erythematosus with other organ involvement (HCC)- Primary [facility] Diagnosis Elevated sed rate- Primary Elevated sedimentation rate Megaloblastic anemia due to vitamin B12 deficiency Other vitamin B12 deficiency anemia [facility] Diagnosis Pseudomonas infection- Primary Pseudomonas infection in conditions classified elsewhere and of unspecified site Other systemic lupus erythematosus with other organ involvement (HCC) On prednisone therapy Long-term use of Plaquenil Encounter for long-term (current) use of other medications [facility] Diagnosis Onset Date Resolution Status Lupus acute Recurrent Clostridioides difficile diarrhea acute Nipple discharge in female a cute Recurrent Clostridioides difficile diarrhea acute Lumbosacral spondylosis acut e Other chronic pain acute Sacroiliitis [facility] Work Phone: Evaluation note* Diagnosis JOSE RAFAEL (obstructive sleep apnea)- Primary Obstructive sleep apnea (adult) (pediatric) Somnolence, daytime Hypersomnia, unspecified [facility]* Diagnosis Systemic lupus erythematosus with other organ involvement (HCC)- Primary [facility] Diagnosis Systemic lupus erythematosus with other organ involvement (HCC)- Primary [facility] Diagnosis Onset Date Resolution Status Nipple discharge in female a cute Recurrent Clostridioides difficile diarrhea acute Lumbosacral spondylosis acut e Other chronic pain acute Sacroiliitis [facility] Work Phone: Evaluation note* Diagnosis Elevated sed rate- Primary Elevated sedimentation rate Megaloblastic anemia due to vitamin B12 deficiency Other vitamin B12 deficiency anemia [facility] Diagnosis Onset Date Resolution Status Nipple discharge in female a cute Recurrent Clostridioides difficile diarrhea acute Lumbosacral spondylosis acut e Other chronic pain acute Sacroiliitis acute Lumbosacral spondylosis acut e Other chronic pain acute Sacroiliitis acute [facility] Work Phone: Evaluation note* Diagnosis Lumbosacral radiculopathy at L5 Degenerative disc disease, lumbar Cervical radiculopathy at C5 documented [facility] Diagnosis Onset Date Resolution Status Lumbosacral spondylosis acut e Other chronic pain acute Sacroiliitis acute Lumbosacral spondylosis acut e Other chronic pain acute Sacroiliitis acute [facility] Work Phone: Evaluation note* Diagnosis Other systemic lupus erythematosus with other organ involvement (HCC) [facility] Diagnosis Other systemic lupus erythematosus [...] both feet Long-term use of high-risk medication nursing home current use of systemic steroids Encounter for long-term (current) use of steroids Bilateral hand pain Pain in limb Systemic lupus erythematosus, unspecified SLE type, unspecified organ involvement status (HCC) Vitamin B12 deficiency Other B-complex deficiencies Discoid lupus erythematosus Lupus erythematosus [facility] Diagnosis Nipple discharge Other sign and symptom in breast documented in this encounter [facility]* Diagnosis Elevated sed rate- Primary Elevated sedimentation rate Megaloblastic anemia due to vitamin B12 deficiency Other vitamin B12 deficiency anemia [facility] Diagnosis Abnormal uterine bleeding (AUB) Menorrhagia with regular cycle documented in this encounter [facility]* Diagnosis Megaloblastic anemia due to vitamin B12 deficiency- Primary Other vitamin B12 deficiency anemia High total serum IgM JOSE RAFAEL (obstructive sleep apnea) Obstructive sleep apnea (adult) (pediatric) Elevated sed rate Elevated sedimentation rate Hypogammaglobulinemia (HCC) Hypogammaglobulinaemia, unspecified Frequent infections [facility] Diagnosis Oral thrush- Primary Candidiasis of mouth documented in this encounter [facility]* Diagnosis Oral thrush- Primary Candidiasis of mouth documented in this encounter [facility]* Diagnosis Systemic lupus erythematosus with other organ involvement (HCC)- Primary [facility] Diagnosis LPRD (laryngopharyngeal reflux disease)- Primary Acute laryngitis, without mention of obstruction Acute otalgia, right documented in this encounter [facility]* Diagnosis Autoimmune disease ([facility]) Autoimmune disease, not elsewhere classified Fibromyalgia Unspecified myalgia and myositis Numbness Disturbance of skin sensation documented in this encounter [facility]* Diagnosis Lumbosacral radiculopathy at L5- Primary Degenerative disc disease, lumbar Cervical radiculopathy at C5 [facility] Diagnosis Degenerative disc disease, lumbar- Primary Lumbosacral radiculopathy at L5 documented in this encounter [facility]* Diagnosis Frequent infections- Primary Megaloblastic anemia due to vitamin B12 deficiency Other vitamin B12 deficiency anemia Elevated sed rate Elevated sedimentation rate Hypogammaglobulinemia (HCC) Hypogammaglobulinaemia, unspecified Bilateral leg weakness Other musculoskeletal symptoms referable to limbs Discoid lupus erythematosus Lupus erythematosus [facility] Diagnosis Well woman exam with routine gynecological exam Routine gynecological examination Breast cancer screening by mammogram Breast nodule Other (abnormal) findings on radiological examination of breast [facility] Diagnosis Megaloblastic anemia due to vitamin B12 deficiency- Primary Other vitamin B12 deficiency anemia Hypogammaglobulinemia (HCC) Hypogammaglobulinaemia, unspecified Positive blood cultures Bacteremia Malaise and fatigue Other malaise and fatigue SOB (shortness of breath) Shortness of breath [facility] Diagnosis Elevated sed rate- Primary Elevated sedimentation rate Megaloblastic anemia due to vitamin B12 deficiency Other vitamin B12 deficiency anemia Hypogammaglobulinemia (HCC) Hypogammaglobulinaemia, unspecified Frequent infections Bilateral leg weakness Other musculoskeletal symptoms referable to limbs Discoid lupus erythematosus Lupus erythematosus [facility] Diagnosis Diarrhea, unspecified type- Primary Abdominal pressure Abdominal pain, unspecified site [facility]* Diagnosis Other iron deficiency anemia- Primary [facility] Diagnosis Other systemic lupus erythematosus with other organ involvement (HCC) [facility]* Diagnosis Systemic lupus erythematosus with other organ involvement (HCC)- Primary [facility]* Diagnosis Systemic lupus erythematosus (CMS-HCC)- Primary Cold extremities Pain of lower extremity, unspecified laterality Rheumatoid arthritis, involving unspecified site, unspecified whether rheumatoid factor present (CMS-HCC) Current smoker 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 [facility] Diagnosis Systemic lupus erythematosus (CMS-HCC)- Primary Cold extremities Pain of lower extremity, unspecified laterality Rheumatoid arthritis, involving unspecified site, unspecified whether rheumatoid factor present ([facility]) Current smoker 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 Peripheral vascular disease, unspecified ([facility]-HCC)- Primary Peripheral vascular disease, unspecified Cold extremities Systemic lupus erythematosus (CMS-HCC) [facility] Diagnosis Other systemic lupus erythematosus with other organ involvement (HCC)- Primary Vitamin D deficiency Unspecified vitamin D deficiency Elevated LFTs Other abnormal blood chemistry Anemia of chronic disease Anemia of other chronic disease Elevated sed rate Elevated sedimentation rate Elevated C-reactive protein (CRP) documented in this encounter [facility] note* Diagnosis Onset Date Resolution Status Admit Date Lumbosacral spondylosis acute F ebruary 2024 3:16pm Other chronic pain acute Februa ry 2024 3:16pm Sacroiliitis acute June 3:16pm [facility] Work Phone: Evaluation note* Diagnosis Elevated sed rate- Primary Elevated sedimentation rate Megaloblastic anemia due to vitamin B12 deficiency Other vitamin B12 deficiency anemia Frequent infections Hypogammaglobulinemia (HCC) Hypogammaglobulinaemia, unspecified Bilateral leg weakness Other musculoskeletal symptoms referable to limbs Discoid lupus erythematosus Lupus erythematosus [facility]* Diagnosis LPRD (laryngopharyngeal reflux disease) Other diseases of larynx Dry mouth Disturbance of salivary secretion Current smoker Tobacco use disorder Abnormal mouth sensation Other and unspecified diseases of the oral soft tissues [facility]* Diagnosis Nipple discharge- Primary Other sign and symptom in breast Other systemic lupus erythematosus with other organ involvement (HCC) On prednisone therapy Long-term use of Plaquenil Encounter for long-term (current) use of other medications [facility]* Diagnosis Hidradenitis suppurativa- Primary Hidradenitis Other seborrheic dermatitis Lupus erythematosus tumidus (CMS/HCC) Rash and other nonspecific skin eruption Capillary angioma Nevus, non-neoplastic Neoplasm of uncertain behavior of skin documented in this encounter [facility]* Diagnosis Sinus tachycardia- Primary Other specified cardiac dysrhythmias Shortness of breath Paroxysmal supraventricular tachycardia (CMS-HCC) Paroxysmal supraventricular tachycardia Essential hypertension Unspecified essential hypertension Obstructive sleep apnea syndrome Obstructive sleep apnea (adult) (pediatric) Morbid obesity (Multi) Morbid obesity Current smoker documented in this encounter [facility] Work Phone: Evaluation note* Diagnosis Elevated sed rate- Primary Elevated sedimentation rate Megaloblastic anemia due to vitamin B12 deficiency Other vitamin B12 deficiency anemia Frequent infections Hypogammaglobulinemia (HCC) Hypogammaglobulinaemia, unspecified Bilateral leg weakness Other musculoskeletal symptoms referable to limbs Discoid lupus erythematosus Lupus erythematosus [facility]* Diagnosis Systemic lupus erythematosus with other organ involvement (HCC)- Primary [facility]* Diagnosis Vitamin B12 deficiency- Primary Other B-complex deficiencies Other iron deficiency anemia Hypogammaglobulinemia (HCC) Hypogammaglobulinaemia, unspecified [facility] Diagnosis Other systemic lupus erythematosus with other organ involvement (HCC) [facility] Diagnosis Thyroid nodule (CMS/HCC)- Primary Nontoxic uninodular goiter LPRD (laryngopharyngeal reflux disease) Acute laryngitis, without mention of obstruction documented in this encounter [facility]* Diagnosis Hypogammaglobulinemia (HCC)- Primary Hypogammaglobulinaemia, unspecified Vitamin B12 deficiency Other B-complex deficiencies Other iron deficiency anemia Megaloblastic anemia due to vitamin B12 deficiency Other vitamin B12 deficiency anemia [facility]* Diagnosis Frequent infections- Primary Hypogammaglobulinemia (HCC) Hypogammaglobulinaemia, unspecified Bilateral leg weakness Other musculoskeletal symptoms referable to limbs Discoid lupus erythematosus Lupus erythematosus Elevated sed rate Elevated sedimentation rate Megaloblastic anemia due to vitamin B12 deficiency Other vitamin B12 deficiency anemia [facility]* Diagnosis Other systemic lupus erythematosus with other organ involvement (HCC)- Primary [facility]* Diagnosis Other systemic lupus erythematosus with other organ involvement (HCC) [facility]* Diagnosis Systemic lupus erythematosus with other organ involvement (HCC)- Primary [facility]* Diagnosis Fibromyalgia- Primary Mylagia and myositis, unspecified Family history of disease of aorta Family history of cancer Family history of unspecified malignant neoplasm [facility]* Diagnosis Frequent infections- Primary Hypogammaglobulinemia [...] vitamin D deficiency [facility]* Diagnosis Other systemic lupus erythematosus with other organ involvement (HCC)- Primary [facility]* Diagnosis Other systemic lupus erythematosus with other organ involvement (HCC)- Primary Elevated LFTs Other abnormal blood chemistry Anemia of chronic disease Anemia of other chronic disease Elevated sed rate Elevated sedimentation rate Elevated C-reactive protein (CRP) Vitamin B12 deficiency Other B-complex deficiencies Screening-pulmonary TB Screening examination for pulmonary tuberculosis Vitamin D deficiency Unspecified vitamin D deficiency [facility]* Diagnosis Other systemic lupus erythematosus [...] feet 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 Encounter for long-term (current) use of steroids Bilateral hand pain Pain in limb Family history of Crohn's disease Family history of other digestive disorders 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 Bilateral wrist pain 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, forearm [facility] Diagnosis Other systemic lupus erythematosus with other organ involvement (HCC)- Primary [facility] Diagnosis Generalized articular hypermobility- Primary Other joint derangement, not elsewhere classified, multiple sites Chronic pain syndrome Discoid lupus erythematosus Lupus erythematosus Family history of pneumothorax in son Family history of other condition Family history of cancer Family history of unspecified malignant neoplasm Family history of mild aortic dilation in daughter Family history of other cardiovascular diseases [facility] Diagnosis Elevated sed rate- Primary Elevated sedimentation rate Megaloblastic anemia due to vitamin B12 deficiency Other vitamin B12 deficiency anemia Frequent infections Hypogammaglobulinemia (HCC) Hypogammaglobulinaemia, unspecified Bilateral leg weakness Other musculoskeletal symptoms referable to limbs Discoid lupus erythematosus Lupus erythematosus [facility] Diagnosis Other systemic lupus erythematosus with other organ involvement (HCC)- Primary [facility]* Diagnosis Hypogammaglobulinemia (HCC)- Primary Hypogammaglobulinaemia, unspecified [facility]* Diagnosis Hidradenitis suppurativa- Primary Hidradenitis Pain Generalized pain Acne vulgaris Other acne [facility] Diagnosis Hypogammaglobulinemia (HCC)- Primary Hypogammaglobulinaemia, unspecified Vitamin B12 deficiency Other B-complex deficiencies Other iron deficiency anemia Malaise and fatigue Other malaise and fatigue Shortness of breath Other specified disorders of breast Pre-diabetes Other abnormal glucose Gastro-esophageal reflux disease without esophagitis Esophageal reflux [facility] Diagnosis Elevated sed rate- Primary Elevated sedimentation rate Megaloblastic anemia due to vitamin B12 deficiency Other vitamin B12 deficiency anemia Frequent infections Hypogammaglobulinemia (HCC) Hypogammaglobulinaemia, unspecified Bilateral leg weakness Other musculoskeletal symptoms referable to limbs Discoid lupus erythematosus Lupus erythematosus [facility] Diagnosis Other systemic lupus [...] for pulmonary tuberculosis [facility] Diagnosis Other systemic lupus erythematosus with other organ involvement (HCC)- Primary Elevated LFTs Other abnormal blood chemistry Anemia of chronic disease Anemia of other chronic disease Elevated C-reactive protein (CRP) Elevated sed rate Elevated sedimentation rate Vitamin D deficiency Unspecified vitamin D deficiency [facility] Diagnosis Frequent infections- Primary Hypogammaglobulinemia (HCC) Hypogammaglobulinaemia, unspecified Bilateral leg weakness Other musculoskeletal symptoms referable to limbs Discoid lupus erythematosus Lupus erythematosus Elevated sed rate Elevated sedimentation rate Megaloblastic anemia due to vitamin B12 deficiency Other vitamin B12 deficiency anemia [facility] Diagnosis Pilonidal cyst- Primary Hidradenitis suppurativa Hidradenitis documented in this encounter [facility]* Diagnosis Pilonidal abscess- Primary Pilonidal cyst with abscess Pilonidal cyst documented in this encounter [facility] HealthcareHistory general Narrative - Reported* Type Description Date Medical History hyperlipidemia Medical History insulin resistance Medical History CMV Surgical History cyst removal pilonidal Surgical History D&C Hospitalization History [facility] Other Hospital Discharge instructionsAmbulatory Orders* Referral to Gastroenterology Location: None [facility] Work Phone: Hospital Discharge instructions Additional Instructions Dressing changes to sacral region daily: Remove packing, irrigate with saline, repack with saline moistened 2 x 2 gauze and [facility] Work Phone: InstructionsNot on filedocumented in this encounter [facility] SystemReason for referral (narrative)* Diagnostic Procedure Only (Routine) - Pending Review Specialty Diagnoses / Procedures Referred By Contac t Referred To Contact XR IMAGING Diagnoses Steroid-induced osteoporosis Procedures DXA-FOREARM SKELETON DXA BONE DENSITY STUDY 1/>SITES APPENDICLR Lynne Perera MD [address] [place] [address] [place] [id number] Referral ID Status Reason Start Date Expiration Date Visits Requested Visits Authorized [id number] Pending Review Auto-Generat ed Referral 02/04/2023 03/05/2024 1 1 [facility] for referral (narrative)* Consultation (Routine) - Authorized Specialty Diagnoses / Procedures Referred By Contac t Referred To Contact Cardiology Diagnoses Irregular heart rate Essential hypertension Autonomic dysfunction Obstructive sleep apnea syndrome Primary hypertension Procedures Follow Up In Cardiology Michelle Jasmine APRN-CNP [address] [facility] [address] [place] [address] Aurora Patel MD [address] [facility] [address] [place] [address] Referral ID Status Reason Start Date Expiration Date V isits Requested Visits Authorized [id number] Authorized 06/09/2023 06/08/2024 1 1 * Cardiovascular (Routine) - Pending Review Specialty Diagnoses / Procedures Referred By Contac t Referred To Contact Cardiology Diagnoses Irregular heart rate 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 Michelle Jasmine APRN-CNP [address] [place] [address] Referral ID Status Reason Start Date Expiration Date V isits Requested Visits Authorized Pending Review 06/09/2023 06/08/2024 1 1 * CV Imaging (Routine) - Pending Review Specialty Diagnoses / Procedures Referred By Contac t Referred To Contact Cardiology Diagnoses Irregular heart rate Obstructive sleep apnea syndrome Procedures Transthoracic Echo (TTE) Complete [place] ECHO [facility] R-T 2D W/WOM-MODE COMPL SPEC&COLR D Michelle Jasmine APRN-CNP [address] [place] [address] Referral ID Status Reason Start Date Expiration Date Visits Requested Visits Authorized [id number] Pending Review Perform Procedure 06/09/2023 06/08/2024 1 1 * Cardiovascular (Routine) - Authorized Specialty Diagnoses / Procedures Referred By Contac t Referred To Contact Diagnoses Irregular heart rate Procedures ECG 12 Lead Michelle Jasmine APRN-CNP [address] [place] [address] [address] [place] [address] Referral ID Status Reason Start Date Expiration Date V isits Requested Visits Authorized [id number] Authorized 06/09/2023 06/08/2024 1 1 [facility] Work Phone: Reason for referral (narrative)* Consultation (Routine) - Pending Review Specialty Diagnoses / Procedures Referred By Contac t Referred To Contact Pain Medicine Diagnoses Lumbosacral radiculopathy at L5 Degenerative disc disease, lumbar Procedures [place] [facility] 60 MINUTES Kade Richardson MD [address] [address] Adolfo Kang MD [address] [address] Referral ID Status Reason Start Date Expiration Date Visits Requested Visits Authorized [id number] Pending Review Specialty Services Required 01/20/2024 07/18/2024 1 1 [facility] (narrative)No reason for referral [facility] Work Phone: Reason for visit Narrative* [place] Prior Authorization (Routine) - Authorized Specialty Diagnoses / Procedures Referred By Contac t Referred To Contact Diagnoses Frequent infections Hypogammaglobulinemia (HCC) Bilateral leg weakness Discoid lupus erythematosus Procedures GAMMAGARD LIQUID INJECTION Vera Najera MD [address] [place] [address] Phone: tel: fax: Hematology/Oncology [address] [place] [address] Phone: tel: fax: Referral ID Status Reason Start Date Expiration Date V isits Requested Visits Authorized [id number] Authorized 04/03/2024 10/01/2024 7 7 [facility] for visit Narrative* [place] Prior Authorization (Routine) - Authorized Specialty Diagnoses / Procedures Referred By Contac t Referred To Contact Diagnoses Other systemic lupus erythematosus with other organ involvement (HCC) Procedures BELIMUMAB INJECTION Lynne Ni MD [address] [place] [address] Phone: tel: fax: Lnyne Ni MD [address] [place] [address] Phone: tel: fax: Referral ID Status Reason Start Date Expiration Date V isits Requested Visits Authorized [id number] Authorized 09/08/2024 03/10/2025 8 8 [facility] for visit Narrative* [place] Prior Authorization (Routine) - Authorized Specialty Diagnoses / Procedures Referred By Contac t Referred To Contact Diagnoses Other iron deficiency anemia Procedures IRON SUCROSE INJECTION PER 1 MG Vaibhav Carvalho APRN.RADIOLOGY SPECIAL PROCEDURE TECH [address] [place] [address] Phone: tel: fax: Hematology/Oncology [address] [place] [address] Phone: tel: fax: Referral ID Status Reason Start Date Expiration Date V isits Requested Visits Authorized [id number] Authorized 06/16/2024 05/23/2025 99 99 [facility] for visit Narrative* [place] Prior Authorization (Routine) - Authorized Specialty Diagnoses / Procedures Referred By Contac t Referred To Contact Diagnoses Frequent infections Hypogammaglobulinemia (HCC) Bilateral leg weakness Discoid lupus erythematosus Procedures GAMMAGARD LIQUID INJECTION Vera Najera MD [address] [place] [address] Phone: tel: fax: Hematology/Oncology [address] [place] [address] Phone: tel: fax: Referral ID Status Reason Start Date Expiration Date Visits Requested Visits Authorized [id number] Authorized Patient Cleared - Admin/Chairm an/Director advise to proceed or did not respond 10/30/2024 10/30/2025 19 19 [facility] for visit Narrative* [place] Prior Authorization (Routine) - Authorized Specialty Diagnoses / Procedures Referred By Contac t Referred To Contact Diagnoses Frequent infections Hypogammaglobulinemia (HCC) Bilateral leg weakness Discoid lupus erythematosus Procedures GAMMAGARD LIQUID INJECTION Vera Najera MD [address] [place] [address] Phone: tel: fax: Hematology/Oncology [address] [place] [address] [place] [address] Phone: tel: fax: Referral ID Status Reason Start Date Expiration Date Visits Requested Visits Authorized [id number] Authorized Patient Cleared - Admin/Chairm an/Director advise to proceed or did not respond 10/30/2024 10/30/2025 18 18 [facility] for visit Narrative* [place] Prior Authorization (Routine) - Authorized Specialty Diagnoses / Procedures Referred By Contac t Referred To Contact Diagnoses Frequent infections Hypogammaglobulinemia (HCC) Bilateral leg weakness Discoid lupus erythematosus Procedures GAMMAGARD LIQUID INJECTION IMMUNE GLOBULIN INJECTION Vera Najera MD [address] [place] [address] Phone: tel: fax: Hematology/Oncology [address] [place] [address] Phone: tel: fax: Referral ID Status Reason Start Date Expiration Date Visits Requested Visits Authorized [id number] Authorized Patient Cleared - Admin/Chairm an/Director advise to proceed or did not respond 10/30/2024 10/30/2025 19 19 [facility] Summary Purpose Family History No Family History Records Found Relationship Condition Age at Onset Recorded Date/T michelle father Unknown Malignant neoplasm Unknown Relationship Condition Age at Onset Recorded Date/T michelle father Malignant neoplasm of stomach Unknown Unknown mother Crohn's disease Unknown Advance Directives No Advanced Directives Records FoundDocuments on File Type Date Recorded Patient Screen Cutter And Trimmer Expl anation ACP-Advance Directive ACP-Power of Premium Card Cancellation Clerk Latest Code Status on File Code Status Date Activated Date Inactivated Comments Full Code 10/07/2020 8:32 AM Documents on File Type Date Recorded Patient Screen Cutter And Trimmer Expl anation Advance Directive(s) 09/13/2015 8:36 AM Advance Directive Response Recorded Date/ Time Advance Directives No September 17, 019 2:40pm Advance Directive Response Recorded Date/ Time Advance Directives No September 17, 019 1:40pm Reason for Referral Specialty Diagnoses / Procedures Referred By Contac t Referred To Contact Infectious Diseases Diagnoses Positive blood cultures Procedures CONSULT TO INFECTIOUS DISEASES [facility]ICE[facility] 60 MINUTES Vaibhav Carvalho APRN.[address] [place] [address] Referral ID Status Reason Start Date Expiration Date Visits Requested Visits Authorized [id number] Authorized PCP Requested Referral 06/13/2024 06/13/2025 1 1 Specialty Diagnoses / Procedures Referred By Contac t Referred To Contact Diagnoses Paroxysmal supraventricular tachycardia PAC (premature atrial contraction) Procedures ECG 12 Lead Lois Holm MD [address] [place] [address] 2, [address] [place] [address] Referral ID Status Reason Start Date Expiration Date V isits Requested Visits Authorized [id number] Authorized 07/13/2023 07/12/2024 1 1 Specialty Diagnoses / Procedures Referred By Contac t Referred To Contact Cardiology Diagnoses Shortness of breath Paroxysmal supraventricular tachycardia PAC (premature atrial contraction) Procedures Follow Up In Cardiology Lois Holm MD [address] [facility] [address], [address] [place] [address] Lois Holm MD 703 [facility] 2, [address] [address] Referral ID Status Reason Start Date Expiration Date V isits Requested Visits Authorized [id number] Authorized 07/13/2023 07/12/2024 1 1 Specialty Diagnoses / Procedures Referred By Contac t Referred To Contact Diagnoses Obesity, Class III, BMI 40-49.9 (morbid obesity) (HCC) Pre-diabetes Christie Phan MD [address] [place] [address] Referral ID Status Reason Start Date Expiration Date Visits Re quested Visits Authorized [id number] Closed 1 1 Specialty Diagnoses / Procedures Referred By Contac t Referred To Contact Diagnoses Wound healing, delayed Procedures CONSULT TO MEDICAL GENETICS - GENERAL OFFICE/OUTPATIENT [facility] 60-74 MINUTES MEDICAL GENETICS COUNSELING EACH 30 MINUTES Misty Nelson MD [facility] [place] [address] [facility] Medicine [place] [address] [place] [address] Referral ID Status Reason Start Date Expiration Date Visits Requested Visits Authorized [id number] Authorized PCP Requested Referral Auto-Generate d Referral 2 03/10/2023 1 1 Specialty Diagnoses / Procedures Referred By Contac t Referred To Contact Neurology Diagnoses POTS (postural orthostatic tachycardia syndrome) Procedures CONSULT TO NEUROLOGY OFFICE/[facility]IENT [facility] 60-74 MINUTES Christie Phan MD [address] [place], [place] [id number] Referral ID Status Reason Start Date Expiration Date Visits Requested Visits Authorized [id number] Authorized PCP Requested Referral 2 03/12/2023 1 1 Specialty Diagnoses / Procedures Referred By Contac t Referred To Contact Immunology Diagnoses Raised level of immunoglobulins Procedures CONSULT TO IMMUNOLOGY OFFICE/[facility]IENT [facility] 60-74 MINUTES Christie Phan MD [address] [place], [place] [id number] Referral ID Status Reason Start Date Expiration Date V isits Requested Visits Authorized [id number] Closed PCP Requested Referral 03/09/2022 03/09/2023 1 1 Specialty Diagnoses / Procedures Referred By Contac t Referred To Contact [facility] Diagnoses Somnolence, daytime Snoring Procedures HOME SLEEP APNEA TEST (HSAT) SLEEP STD AIRFLOW HRT RATE&O2 SAT EFFORT Christie Pang MD [address] [place] [address] Neurological [place] [address] [place] [address] Referral ID Status Reason Start Date Expiration Date Visits Requested Visits Authorized [id number] Authorized Auto-Generat ed Referral 2 03/09/2023 1 1 Specialty Diagnoses / Procedures Referred By Azulac t Referred To Contact Diagnoses Somnolence, daytime Chronic fatigue and malaise Obesity, unspecified classification, unspecified obesity type, unspecified whether serious comorbidity present Procedures CONSULT TO LIFESTYLE MEDICINE [place] OFFICE[facility]IENT [facility] 60-74 MINUTES Vera Najera MD [address] [place] [address] [place] [address] Referral ID Status Reason Start Date Expiration Date V isits Requested Visits Authorized [id number] Closed PCP Requested Referral 03/04/2022 03/04/2023 1 1 Specialty Diagnoses / Procedures Referred By Nahid Referred To Contact Diagnoses Somnolence, daytime Snoring Procedures CONSULT TO SLEEP MEDICINE - ADULT OFFICE/OUTPATIENT [facility] 60-74 MINUTES Vera Najera MD [address] [place] [address] [place] [address] Referral ID Status Reason Start Date Expiration Date Visits Requested Visits Authorized [id number] Authorized PCP Requested Referral 2 03/04/2023 1 [...] Visit Admit Date Lumbosacral spondylosis July 10 2 025 3:16pm Other chronic pain July [...] f/u-constipation/dyspepsia/abd. gus n February 28, 2025 1:29pm Chief Complaint Admit Date nausea/Burning under left rib December 12, 2024 10:42am reshedule procedure January 17, 2025 10 :29am Back Pain January 31, 2025 10:00am 2 week follow up after RFA January 9:23am Unknown February 26, 2025 7: 30pm 8 wk f/u-constipation/dyspepsia/abd. gus n February 28, 2025 1:29pm Pilonidal Cyst March 02, 2025 2 :46pm Reason for Visit Admit Date Abdominal burning [...] (gastroesophageal reflux disease) O ctober 2024 1:29pm Chief Complaint Admit Date nausea/Burning under left rib December 12, 2024 10:42am reshedule procedure January 17, 2025 10 :29am Back Pain January 31, 2025 10:00am 2 week follow up after RFA January 9:23am Unknown February 26, 2025 7: 30pm 8 wk f/u-constipation/dyspepsia/abd. gus n February 28, 2025 1:29pm Pilonidal Cyst March 02, 2025 2 :46pm Unknown March 03, 2025 4 :14pm Additional Source Comments INFORMATION SOURCE (unrecogn ized section and content) DATE CREATED AUTHOR 09/20/2018 [facility] DATE CREATED AUTHOR AUTHOR'S ORGANIZ ATION 12/10/2018 [facility] DATE CREATED AUTHOR AUTHOR'S ORGANIZ ATION 01/13/2019 [facility] DATE CREATED AUTHOR AUTHOR'S ORGANIZ ATION 06/28/2021 [facility] DATE CREATED AUTHOR AUTHOR'S ORGANIZ ATION 10/01/2022 [facility] DATE CREATED AUTHOR AUTHOR'S ORGANIZ ATION 03/10/2024 [facility] DATE CREATED AUTHOR AUTHOR'S ORGANIZ ATION 07/22/2024 [facility] DATE CREATED AUTHOR AUTHOR'S ORGANIZ ATION 07/28/2024 [facility] DATE CREATED AUTHOR AUTHOR'S ORGANIZ ATION 02/26/2025 [facility] DATE CREATED AUTHOR AUTHOR'S ORGANIZ ATION 03/02/2025 [facility] DATE CREATED AUTHOR AUTHOR'S ORGANIZ ATION 03/09/2025 [facility] Reason for Visit (unrecogniz ed section and content) Reason Comments Infection Follow Up Specialty Diagnoses / Procedures Referred By Contac t Referred To Contact Infectious Diseases Diagnoses Positive blood cultures Procedures CONSULT TO INFECTIOUS DISEASES [facility]ICE[facility] 60 MINUTES Vaibhav Carvalho, SENIOR NURSE MANAGER.[address] [place] [address] Phone: tel: fax: Referral ID Status Reason Start Date Expiration Date V isits Requested Visits Authorized [id number] Closed PCP Requested Referral 06/13/2024 06/13/2025 1 1 Status Reason Specialty Diagnoses / Procedures Referre d By Contact Referred To Contact [facility] Reason Comments Pain ongoing generalized [...] HIGH MDM 60-74 MINUTES Vera Najera MD [address] [place] [address] [place] [address] Referral ID Status Reason Start Date Expiration Date V isits Requested Visits Authorized [id number] Closed PCP Requested Referral 03/04/2022 03/04/2023 1 1 Reason Comments High Total serum IgM Anemia Reason Comments Consult Specialty Diagnoses / Procedures Referred By Contac t Referred To Contact Immunology Diagnoses Raised level of immunoglobulins Procedures CONSULT TO IMMUNOLOGY OFFICE/OUTPATIENT NEW HIGH MDM 60-74 MINUTES Christie Phan MD [address] [place] [address] Referral ID Status Reason Start Date Expiration Date V isits Requested Visits Authorized [id number] Closed PCP Requested Referral 03/09/2022 03/09/2023 1 1 Reason Comments Pneumovax Reason Comments Refill Request Reason Comments 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 Reason Comments Future Appointment Scheduling [...] rate Procedures ECG 12 Lead Michelle Jasmine, SENIOR NURSE MANAGER-RADIOLOGY SPECIAL PROCEDURE TECH [address] [facility] [address] [place] [address] Referral ID Status Reason Start Date Expiration Date V isits Requested Visits Authorized [id number] Authorized 06/09/2023 06/08/2024 1 1 Reason Comments New Patient Visit Leg Swelling, test r esults from [facility] Specialty Diagnoses / Procedures Referred By Contac t Referred To Contact Diagnoses Paroxysmal supraventricular tachycardia PAC (premature atrial contraction) Procedures ECG 12 Lead Lois Holm MD [address] [facility] 2, [address] [place] [address] Referral ID Status Reason Start Date Expiration Date V isits Requested Visits Authorized [id number] Authorized 07/13/2023 07/12/2024 1 1 Reason Onset [...] Reason Comments Orders PAP RX. 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 [facility] [address] Referral ID Status Reason Start Date Expiration Date V isits Requested Visits Authorized [id number] Authorized 04/03/2024 10/01/2024 7 7 Reason Comments [...] of lower extremity, unspecified laterality Gay Enciso, SENIOR NURSE MANAGER-RADIOLOGY SPECIAL PROCEDURE TECH [address] [place] [address] Phone: tel:[phone] fax: Hayden Arciniega MD [address] [place] [address] Phone: tel:[phone] fax: Referral ID Status Reason Start Date Expiration Date Visits Requested Visits Authorized [id number] Pending Review Specialty Services Required 03/15/2025 1 1 Reason Comments Mouth/Lip Problem Since February Reason Onset Date Comments SPP Inflammatory Conditions - Medication Refill 07/25/2024 Benlysta Reason Comments Follow-up Skin Check Reason Comments Annual Exam Specialty Diagnoses / Procedures Referred By Nahid t Referred To Contact Cardiology Diagnoses Shortness of breath Paroxysmal supraventricular tachycardia ([facility] PAC (premature atrial contraction) Procedures Follow Up In Cardiology Lois Holm MD [address] [place] [address], [address] [address] Phone: tel: fax: Lois Holm MD [address] [facility] 2, [address] [address] Phone: tel: fax: Referral ID Status Reason Start Date Expiration Date V isits Requested Visits Authorized [id number] Authorized 07/13/2023 07/12/2024 1 1 Reason Comments Med Change Request Reason Comments Patient Question Reason Onset Date Comments SPP Inflammatory Conditions - Medication Refill 08/17/2024 Benlysta Reason Onset Date Comments Refill Request 09/01/2024 Reason Comments Thyroid Nodule Follow up ultrasound [facility] 08/24/24 Reason Comments Megaloblastic anemia due [...] Referred By Nahid t Referred To Contact Genetics / MEDICAL GENETICS Diagnoses hEDS with concerns and wants CTD evaluation Procedures EST PATIENT Self Ny Lance MD [address] [address] Phone: tel: fax: Referral ID Status Reason Start Date Expiration Date V isits Requested Visits Authorized [id number] Pending Review 09/19/2024 12/18/2024 1 1 Reason [...] Contact General Surgery Diagnoses Pilonidal cyst Procedures [place] OFFICE/OUTPATIENT NEW HIGH MDM 60 MINUTES Bernabe English MD [address] [place] [address] Phone: tel: fax: Terence Blum MD [address] [place] [address] Phone: tel: fax: Referral ID Status Reason Start Date Expiration Date V isits Requested Visits Authorized [id number] Closed Specialty Services Required 02/14/2025 08/13/2025 1 [...] any alcohol or drug abuse patient.[facility] the event this information is protected by the Federal Confidentiality of Alcohol and Drug Abuse Patient Records regulations: The Federal rules restrict any use of the information to criminally investigate or prosecute any alcohol or drug abuse patient.[facility] the event this information is protected by the Federal Confidentiality of Alcohol and Drug Abuse Patient Records regulations: The Federal rules restrict any use of the information to criminally investigate or prosecute any alcohol or drug abuse patient.[facility] the event this information is protected by the Federal Confidentiality of Alcohol and Drug Abuse Patient Records regulations: The Federal rules restrict any use of the information to criminally investigate or prosecute any alcohol or drug abuse patient.[facility] the event this information is protected by the Federal Confidentiality of Alcohol and Drug Abuse Patient Records regulations: The Federal rules restrict any use of the information to criminally investigate or prosecute any alcohol or drug abuse patient.[facility]In the event this information is protected by the Federal Confidentiality of Alcohol and Drug Abuse Patient Records regulations: The Federal rules restrict any use of the information to criminally investigate or prosecute any alcohol or drug abuse patient.[facility] the event this information is protected by the Federal Confidentiality of Alcohol and Drug Abuse Patient Records regulations: The Federal rules restrict any use of the information to criminally investigate or prosecute any alcohol or drug abuse patient.[facility]In the event this information is protected by the Federal Confidentiality of Alcohol and Drug Abuse Patient Records regulations: The Federal rules restrict any use of the information to criminally investigate or prosecute any alcohol or drug abuse patient.[facility]In the event this information is protected by the Federal Confidentiality of Alcohol and Drug Abuse Patient Records regulations: The Federal rules restrict any use of the information to criminally investigate or prosecute any alcohol or drug abuse patient.[facility]In the event this information is protected by the Federal Confidentiality of Alcohol and Drug Abuse Patient Records regulations: The Federal rules restrict any use of the information to criminally investigate or prosecute any alcohol or drug abuse patient.[facility] HospitalIn the event this information is protected by the Federal Confidentiality of Alcohol and Drug Abuse Patient Records regulations: The Federal rules restrict any use of the information to criminally investigate or prosecute any alcohol or drug abuse patient.[facility] HospitalIn the event this information is protected by the Federal Confidentiality of Alcohol and Drug Abuse Patient Records regulations: The Federal rules restrict any use of the information to criminally investigate or prosecute any alcohol or drug abuse patient.[facility] HospitalIn the event this information is protected by the Federal Confidentiality of Alcohol and Drug Abuse Patient Records regulations: The Federal rules restrict any use of the information to criminally investigate or prosecute any alcohol or drug abuse patient.[facility] HospitalIn the event this information is protected by the Federal Confidentiality of Alcohol and Drug Abuse Patient Records regulations: The Federal rules restrict any use of the information to criminally investigate or prosecute any alcohol or drug abuse patient.[facility] HospitalIn the event this information is protected by the Federal Confidentiality of Alcohol and Drug Abuse Patient Records regulations: The Federal rules restrict any use of the information to criminally investigate or prosecute any alcohol or drug abuse patient.[facility] HospitalIn the event this information is protected by the Federal Confidentiality of Alcohol and Drug Abuse Patient Records regulations: The Federal rules restrict any use of the information to criminally investigate or prosecute any alcohol or drug abuse patient.[facility] HospitalIn the event this information is protected by the Federal Confidentiality of Alcohol and Drug Abuse Patient Records regulations: The Federal rules restrict any use of the information to criminally investigate or prosecute any alcohol or drug abuse patient.[facility] HospitalIn the event this information is protected by the Federal Confidentiality of Alcohol and Drug Abuse Patient Records regulations: The Federal rules restrict any use of the information to criminally investigate or prosecute any alcohol or drug abuse patient.[facility] HospitalIn the event this information is protected by the Federal Confidentiality of Alcohol and Drug Abuse Patient Records regulations: The Federal rules restrict any use of the information to criminally investigate or prosecute any alcohol or drug abuse patient.[facility] HospitalIn the event this information is protected by the Federal Confidentiality of Alcohol and Drug Abuse Patient Records regulations: The Federal rules restrict any use of the information to criminally investigate or prosecute any alcohol or drug abuse patient.[facility] HospitalIn the event this information is protected by the Federal Confidentiality of Alcohol and Drug Abuse Patient Records regulations: The Federal rules restrict any use of the information to criminally investigate or prosecute any alcohol or drug abuse patient.[facility] HospitalIn the event this information is protected by the Federal Confidentiality of Alcohol and Drug Abuse Patient Records regulations: The Federal rules restrict any use of the information to criminally investigate or prosecute any alcohol or drug abuse patient.[facility] HospitalIn the event this information is protected by the Federal Confidentiality of Alcohol and Drug Abuse Patient Records regulations: The Federal rules restrict any use of the information to criminally investigate or prosecute any alcohol or drug abuse patient.[facility] HospitalIn the event this information is protected by the Federal Confidentiality of Alcohol and Drug Abuse Patient Records regulations: The Federal rules restrict any use of the information to criminally investigate or prosecute any alcohol or drug abuse patient.[facility] HospitalIn the event this information is protected by the Federal Confidentiality of Alcohol and Drug Abuse Patient Records regulations: The Federal rules restrict any use of the information to criminally investigate or prosecute any alcohol or drug abuse patient.[facility] HospitalIn the event this information is protected by the Federal Confidentiality of Alcohol and Drug Abuse Patient Records regulations: The Federal rules restrict any use of the information to criminally investigate or prosecute any alcohol or drug abuse patient.[facility] HospitalIn the event this information is protected by the Federal Confidentiality of Alcohol and Drug Abuse Patient Records regulations: The Federal rules restrict any use of the information to criminally investigate or prosecute any alcohol or drug abuse patient.[facility] HospitalIn the event this information is protected by the Federal Confidentiality of Alcohol and Drug Abuse Patient Records regulations: The Federal rules restrict any use of the information to criminally investigate or prosecute any alcohol or drug abuse patient.[facility] HospitalIn the event this information is protected by the Federal Confidentiality of Alcohol and Drug Abuse Patient Records regulations: The Federal rules restrict any use of the information to criminally investigate or prosecute any alcohol or drug abuse patient.[facility] HospitalIn the event this information is protected by the Federal Confidentiality of Alcohol and Drug Abuse Patient Records regulations: The Federal rules restrict any use of the information to criminally investigate or prosecute any alcohol or drug abuse patient.[facility] HospitalIn the event this information is protected by the Federal Confidentiality of Alcohol and Drug Abuse Patient Records regulations: The Federal rules restrict any use of the information to criminally investigate or prosecute any alcohol or drug abuse patient.[facility] HospitalIn the event this information is protected by the Federal Confidentiality of Alcohol and Drug Abuse Patient Records regulations: The Federal rules restrict any use of the information to criminally investigate or prosecute any alcohol or drug abuse patient.[facility] HospitalIn the event this information is protected by the Federal Confidentiality of Alcohol and Drug Abuse Patient Records regulations: The Federal rules restrict any use of the information to criminally investigate or prosecute any alcohol or drug abuse patient.[facility] HospitalIn the event this information is protected by the Federal Confidentiality of Alcohol and Drug Abuse Patient Records regulations: The Federal rules restrict any use of the information to criminally investigate or prosecute any alcohol or drug abuse patient.[facility] HospitalIn the event this information is protected by the Federal Confidentiality of Alcohol and Drug Abuse Patient Records regulations: The Federal rules restrict any use of the information to criminally investigate or prosecute any alcohol or drug abuse patient.[facility] HospitalIn the event this information is protected by the Federal Confidentiality of Alcohol and Drug Abuse Patient Records regulations: The Federal rules restrict any use of the information to criminally investigate or prosecute any alcohol or drug abuse patient.[facility] HospitalIn the event this information is protected by the Federal Confidentiality of Alcohol and Drug Abuse Patient Records regulations: The Federal rules restrict any use of the information to criminally investigate or prosecute any alcohol or drug abuse patient.[facility] HospitalIn the event this information is protected by the Federal Confidentiality of Alcohol and Drug Abuse Patient Records regulations: The Federal rules restrict any use of the information to criminally investigate or prosecute any alcohol or drug abuse patient.[facility] HospitalIn the event this information is protected by the Federal Confidentiality of Alcohol and Drug Abuse Patient Records regulations: The Federal rules restrict any use of the information to criminally investigate or prosecute any alcohol or drug abuse patient.[facility] HospitalIn the event this information is protected by the Federal Confidentiality of Alcohol and Drug Abuse Patient Records regulations: The Federal rules restrict any use of the information to criminally investigate or prosecute any alcohol or drug abuse patient.[facility] HospitalIn the event this information is protected by the Federal Confidentiality of Alcohol and Drug Abuse Patient Records regulations: The Federal rules restrict any use of the information to criminally investigate or prosecute any alcohol or drug abuse patient.[facility] HospitalIn the event this information is protected by the Federal Confidentiality of Alcohol and Drug Abuse Patient Records regulations: The Federal rules restrict any use of the information to criminally investigate or prosecute any alcohol or drug abuse patient.[facility] HospitalIn the event this information is protected by the Federal Confidentiality of Alcohol and Drug Abuse Patient Records regulations: The Federal rules restrict any use of the information to criminally investigate or prosecute any alcohol or drug abuse patient.[facility] HospitalIn the event this information is protected [...] any alcohol or drug abuse patient.[facility] HospitalIn the event this information is protected by the Federal Confidentiality of Alcohol and Drug Abuse Patient Records regulations: The Federal rules restrict any use of the information to criminally investigate or prosecute any alcohol or drug abuse patient.[facility] HospitalIn the event this information is protected by the Federal Confidentiality of Alcohol and Drug Abuse Patient Records regulations: The Federal rules restrict any use of the information to criminally investigate or prosecute any alcohol or drug abuse patient.[facility] HospitalIn the event this information is protected by the Federal Confidentiality of Alcohol and Drug Abuse Patient Records regulations: The Federal rules restrict any use of the information to criminally investigate or prosecute any alcohol or drug abuse patient.[facility] HospitalIn the event this information is protected by the Federal Confidentiality of Alcohol and Drug Abuse Patient Records regulations: The Federal rules restrict any use of the information to criminally investigate or prosecute any alcohol or drug abuse patient.[facility] HospitalIn the event this information is protected by the Federal Confidentiality of Alcohol and Drug Abuse Patient Records regulations: The Federal rules restrict any use of the information to criminally investigate or prosecute any alcohol or drug abuse patient.[facility] HospitalIn the event this information is protected by the Federal Confidentiality of Alcohol and Drug Abuse Patient Records regulations: The Federal rules restrict any use of the information to criminally investigate or prosecute any alcohol or drug abuse patient.[facility] HospitalIn the event this information is protected by the Federal Confidentiality of Alcohol and Drug Abuse Patient Records regulations: The Federal rules restrict any use of the information to criminally investigate or prosecute any alcohol or drug abuse patient.[facility] HospitalIn the event this information is protected by the Federal Confidentiality of Alcohol and Drug Abuse Patient Records regulations: The Federal rules restrict any use of the information to criminally investigate or prosecute any alcohol or drug abuse patient.[facility] HospitalIn the event this information is protected by the Federal Confidentiality of Alcohol and Drug Abuse Patient Records regulations: The Federal rules restrict any use of the information to criminally investigate or prosecute any alcohol or drug abuse patient.[facility] HospitalIn the event this information is protected by the Federal Confidentiality of Alcohol and Drug Abuse Patient Records regulations: The Federal rules restrict any use of the information to criminally investigate or prosecute any alcohol or drug abuse patient.[facility] HospitalIn the event this information is protected by the Federal Confidentiality of Alcohol and Drug Abuse Patient Records regulations: The Federal rules restrict any use of the information to criminally investigate or prosecute any alcohol or drug abuse patient.[facility] HospitalIn the event this information is protected by the Federal Confidentiality of Alcohol and Drug Abuse Patient Records regulations: The Federal rules restrict any use of the information to criminally investigate or prosecute any alcohol or drug abuse patient.[facility] HospitalIn the event this information is protected by the Federal Confidentiality of Alcohol and Drug Abuse Patient Records regulations: The Federal rules restrict any use of the information to criminally investigate or prosecute any alcohol or drug abuse patient.[facility] HospitalIn the event this information is protected by the Federal Confidentiality of Alcohol and Drug Abuse Patient Records regulations: The Federal rules restrict any use of the information to criminally investigate or prosecute any alcohol or drug abuse patient.[facility] HospitalIn the event this information is protected by the Federal Confidentiality of Alcohol and Drug Abuse Patient Records regulations: The Federal rules restrict any use of the information to criminally investigate or prosecute any alcohol or drug abuse patient.[facility] HospitalIn the event this information is protected by the Federal Confidentiality of Alcohol and Drug Abuse Patient Records regulations: The Federal rules restrict any use of the information to criminally investigate or prosecute any alcohol or drug abuse patient.[facility] HospitalIn the event this information is protected by the Federal Confidentiality of Alcohol and Drug Abuse Patient Records regulations: The Federal rules restrict any use of the information to criminally investigate or prosecute any alcohol or drug abuse patient.[facility] HospitalIn the event this information is protected by the Federal Confidentiality of Alcohol and Drug Abuse Patient Records regulations: The Federal rules restrict any use of the information to criminally investigate or prosecute any alcohol or drug abuse patient.[facility] HospitalIn the event this information is protected by the Federal Confidentiality of Alcohol and Drug Abuse Patient Records regulations: The Federal rules restrict any use of the information to criminally investigate or prosecute any alcohol or drug abuse patient.[facility] HospitalIn the event this information is protected by the Federal Confidentiality of Alcohol and Drug Abuse Patient Records regulations: The Federal rules restrict any use of the information to criminally investigate or prosecute any alcohol or drug abuse patient.[facility] HospitalIn the event this information is protected by the Federal Confidentiality of Alcohol and Drug Abuse Patient Records regulations: The Federal rules restrict any use of the information to criminally investigate or prosecute any alcohol or drug abuse patient.[facility] HospitalIn the event this information is protected by the Federal Confidentiality of Alcohol and Drug Abuse Patient Records regulations: The Federal rules restrict any use of the information to criminally investigate or prosecute any alcohol or drug abuse patient.[facility] HospitalIn the event this information is protected by the Federal Confidentiality of Alcohol and Drug Abuse Patient Records regulations: The Federal rules restrict any use of the information to criminally investigate or prosecute any alcohol or drug abuse patient.[facility] HospitalIn the event this information is protected by the Federal Confidentiality of Alcohol and Drug Abuse Patient Records regulations: The Federal rules restrict any use of the information to criminally investigate or prosecute any alcohol or drug abuse patient.[facility] HospitalIn the event this information is protected by the Federal Confidentiality of Alcohol and Drug Abuse Patient Records regulations: The Federal rules restrict any use of the information to criminally investigate or prosecute any alcohol or drug abuse patient.[facility] HospitalIn the event this information is protected by the Federal Confidentiality of Alcohol and Drug Abuse Patient Records regulations: The Federal rules restrict any use of the information to criminally investigate or prosecute any alcohol or drug abuse patient.[facility] HospitalIn the event this information is protected by the Federal Confidentiality of Alcohol and Drug Abuse Patient Records regulations: The Federal rules restrict any use of the information to criminally investigate or prosecute any alcohol or drug abuse patient.[facility] HospitalIn the event this information is protected by the Federal Confidentiality of Alcohol and Drug Abuse Patient Records regulations: The Federal rules restrict any use of the information to criminally investigate or prosecute any alcohol or drug abuse patient.[facility] HospitalIn the event this information is protected by the Federal Confidentiality of Alcohol and Drug Abuse Patient Records regulations: The Federal rules restrict any use of the information to criminally investigate or prosecute any alcohol or drug abuse patient.[facility] HospitalIn the event this information is protected by the Federal Confidentiality of Alcohol and Drug Abuse Patient Records regulations: The Federal rules restrict any use of the information to criminally investigate or prosecute any alcohol or drug abuse patient.[facility] HospitalIn the event this information is protected by the Federal Confidentiality of Alcohol and Drug Abuse Patient Records regulations: The Federal rules restrict any use of the information to criminally investigate or prosecute any alcohol or drug abuse patient.[facility] HospitalIn the event this information is protected by the Federal Confidentiality of Alcohol and Drug Abuse Patient Records regulations: The Federal rules restrict any use of the information to criminally investigate or prosecute any alcohol or drug abuse patient.[facility] HospitalIn the event this information is protected by the Federal Confidentiality of Alcohol and Drug Abuse Patient Records regulations: The Federal rules restrict any use of the information to criminally investigate or prosecute any alcohol or drug abuse patient.[facility] HospitalIn the event this information is protected by the Federal Confidentiality of Alcohol and Drug Abuse Patient Records regulations: The Federal rules restrict any use of the information to criminally investigate or prosecute any alcohol or drug abuse patient.[facility] HospitalIn the event this information is protected by the Federal Confidentiality of Alcohol and Drug Abuse Patient Records regulations: The Federal rules restrict any use of the information to criminally investigate or prosecute any alcohol or drug abuse patient.[facility] HospitalIn the event this information is protected by the Federal Confidentiality of Alcohol and Drug Abuse Patient Records regulations: The Federal rules restrict any use of the information to criminally investigate or prosecute any alcohol or drug abuse patient.[facility] HospitalIn the event this information is protected by the Federal Confidentiality of Alcohol and Drug Abuse Patient Records regulations: The Federal rules restrict any use of the information to criminally investigate or prosecute any alcohol or drug abuse patient.[facility] HospitalIn the event this information is protected by the Federal Confidentiality of Alcohol and Drug Abuse Patient Records regulations: The Federal rules restrict any use of the information to criminally investigate or prosecute any alcohol or drug abuse patient.[facility] HospitalIn the event this information is protected by the Federal Confidentiality of Alcohol and Drug Abuse Patient Records regulations: The Federal rules restrict any use of the information to criminally investigate or prosecute any alcohol or drug abuse patient.[facility] HospitalIn the event this information is protected by the Federal Confidentiality of Alcohol and Drug Abuse Patient Records regulations: The Federal rules restrict any use of the information to criminally investigate or prosecute any alcohol or drug abuse patient.[facility] HospitalIn the event this information is protected by the Federal Confidentiality of Alcohol and Drug Abuse Patient Records regulations: The Federal rules restrict any use of the information to criminally investigate or prosecute any alcohol or drug abuse patient.[facility] HospitalIn the event this information is protected by the Federal Confidentiality of Alcohol and Drug Abuse Patient Records regulations: The Federal rules restrict any use of the information to criminally investigate or prosecute any alcohol or drug abuse patient.[facility] HospitalIn the event this information is protected by the Federal Confidentiality of Alcohol and Drug Abuse Patient Records regulations: The Federal rules restrict any use of the information to criminally investigate or prosecute any alcohol or drug abuse patient.[facility] HospitalIn the event this information is protected by the Federal Confidentiality of Alcohol and Drug Abuse Patient Records regulations: The Federal rules restrict any use of the information to criminally investigate or prosecute any alcohol or drug abuse patient.[facility] HospitalIn the event this information is protected by the Federal Confidentiality of Alcohol and Drug Abuse Patient Records regulations: The Federal rules restrict any use of the information to criminally investigate or prosecute any alcohol or drug abuse patient.[facility] HospitalIn the event this information is protected by the Federal Confidentiality of Alcohol and Drug Abuse Patient Records regulations: The Federal rules restrict any use of the information to criminally investigate or prosecute any alcohol or drug abuse patient.[facility] HospitalIn the event this information is protected by the Federal Confidentiality of Alcohol and Drug Abuse Patient Records regulations: The Federal rules restrict any use of the information to criminally investigate or prosecute any alcohol or drug abuse patient.[facility] HospitalIn the event this information is protected by the Federal Confidentiality of Alcohol and Drug Abuse Patient Records regulations: The Federal rules restrict any use of the information to criminally investigate or prosecute any alcohol or drug abuse patient.[facility] HospitalIn the event this information is protected [...] any alcohol or drug abuse patient.[facility] HospitalIn the event this information is protected by the Federal Confidentiality of Alcohol and Drug Abuse Patient Records regulations: The Federal rules restrict any use of the information to criminally investigate or prosecute any alcohol or drug abuse patient.[facility] HospitalIn the event this information is protected by the Federal Confidentiality of Alcohol and Drug Abuse Patient Records regulations: The Federal rules restrict any use of the information to criminally investigate or prosecute any alcohol or drug abuse patient.[facility] HospitalIn the event this information is protected by the Federal Confidentiality of Alcohol and Drug Abuse Patient Records regulations: The Federal rules restrict any use of the information to criminally investigate or prosecute any alcohol or drug abuse patient.[facility] HospitalIn the event this information is protected by the Federal Confidentiality of Alcohol and Drug Abuse Patient Records regulations: The Federal rules restrict any use of the information to criminally investigate or prosecute any alcohol or drug abuse patient.[facility] HospitalIn the event this information is protected by the Federal Confidentiality of Alcohol and Drug Abuse Patient Records regulations: The Federal rules restrict any use of the information to criminally investigate or prosecute any alcohol or drug abuse patient.[facility] HospitalIn the event this information is protected by the Federal Confidentiality of Alcohol and Drug Abuse Patient Records regulations: The Federal rules restrict any use of the information to criminally investigate or prosecute any alcohol or drug abuse patient.[facility] HospitalIn the event this information is protected by the Federal Confidentiality of Alcohol and Drug Abuse Patient Records regulations: The Federal rules restrict any use of the information to criminally investigate or prosecute any alcohol or drug abuse patient.[facility] HospitalIn the event this information is protected by the Federal Confidentiality of Alcohol and Drug Abuse Patient Records regulations: The Federal rules restrict any use of the information to criminally investigate or prosecute any alcohol or drug abuse patient.[facility] HospitalIn the event this information is protected by the Federal Confidentiality of Alcohol and Drug Abuse Patient Records regulations: The Federal rules restrict any use of the information to criminally investigate or prosecute any alcohol or drug abuse patient.[facility] HospitalIn the event this information is protected by the Federal Confidentiality of Alcohol and Drug Abuse Patient Records regulations: The Federal rules restrict any use of the information to criminally investigate or prosecute any alcohol or drug abuse patient.[facility] HospitalIn the event this information is protected by the Federal Confidentiality of Alcohol and Drug Abuse Patient Records regulations: The Federal rules restrict any use of the information to criminally investigate or prosecute any alcohol or drug abuse patient.[facility] HospitalIn the event this information is protected by the Federal Confidentiality of Alcohol and Drug Abuse Patient Records regulations: The Federal rules restrict any use of the information to criminally investigate or prosecute any alcohol or drug abuse patient.[facility] HospitalIn the event this information is protected by the Federal Confidentiality of Alcohol and Drug Abuse Patient Records regulations: The Federal rules restrict any use of the information to criminally investigate or prosecute any alcohol or drug abuse patient.[facility] HospitalIn the event this information is protected by the Federal Confidentiality of Alcohol and Drug Abuse Patient Records regulations: The Federal rules restrict any use of the information to criminally investigate or prosecute any alcohol or drug abuse patient.[facility] HospitalIn the event this information is protected by the Federal Confidentiality of Alcohol and Drug Abuse Patient Records regulations: The Federal rules restrict any use of the information to criminally investigate or prosecute any alcohol or drug abuse patient.[facility] HospitalIn the event this information is protected by the Federal Confidentiality of Alcohol and Drug Abuse Patient Records regulations: The Federal rules restrict any use of the information to criminally investigate or prosecute any alcohol or drug abuse patient.[facility] HospitalIn the event this information is protected by the Federal Confidentiality of Alcohol and Drug Abuse Patient Records regulations: The Federal rules restrict any use of the information to criminally investigate or prosecute any alcohol or drug abuse patient.[facility] HospitalIn the event this information is protected by the Federal Confidentiality of Alcohol and Drug Abuse Patient Records regulations: The Federal rules restrict any use of the information to criminally investigate or prosecute any alcohol or drug abuse patient.[facility] HospitalIn the event this information is protected by the Federal Confidentiality of Alcohol and Drug Abuse Patient Records regulations: The Federal rules restrict any use of the information to criminally investigate or prosecute any alcohol or drug abuse patient.[facility] HospitalIn the event this information is protected by the Federal Confidentiality of Alcohol and Drug Abuse Patient Records regulations: The Federal rules restrict any use of the information to criminally investigate or prosecute any alcohol or drug abuse patient.[facility] HospitalIn the event this information is protected by the Federal Confidentiality of Alcohol and Drug Abuse Patient Records regulations: The Federal rules restrict any use of the information to criminally investigate or prosecute any alcohol or drug abuse patient.[facility] HospitalIn the event this information is protected by the Federal Confidentiality of Alcohol and Drug Abuse Patient Records regulations: The Federal rules restrict any use of the information to criminally investigate or prosecute any alcohol or drug abuse patient.[facility] HospitalIn the event this information is protected by the Federal Confidentiality of Alcohol and Drug Abuse Patient Records regulations: The Federal rules restrict any use of the information to criminally investigate or prosecute any alcohol or drug abuse patient.[facility] HospitalIn the event this information is protected by the Federal Confidentiality of Alcohol and Drug Abuse Patient Records regulations: The Federal rules restrict any use of the information to criminally investigate or prosecute any alcohol or drug abuse patient.[facility] HospitalIn the event this information is protected by the Federal Confidentiality of Alcohol and Drug Abuse Patient Records regulations: The Federal rules restrict any use of the information to criminally investigate or prosecute any alcohol or drug abuse patient.[facility] HospitalIn the event this information is protected by the Federal Confidentiality of Alcohol and Drug Abuse Patient Records regulations: The Federal rules restrict any use of the information to criminally investigate or prosecute any alcohol or drug abuse patient.[facility] HospitalIn the event this information is protected by the Federal Confidentiality of Alcohol and Drug Abuse Patient Records regulations: The Federal rules restrict any use of the information to criminally investigate or prosecute any alcohol or drug abuse patient.[facility] HospitalIn the event this information is protected by the Federal Confidentiality of Alcohol and Drug Abuse Patient Records regulations: The Federal rules restrict any use of the information to criminally investigate or prosecute any alcohol or drug abuse patient.[facility] HospitalIn the event this information is protected by the Federal Confidentiality of Alcohol and Drug Abuse Patient Records regulations: The Federal rules restrict any use of the information to criminally investigate or prosecute any alcohol or drug abuse patient.[facility] HospitalIn the event this information is protected by the Federal Confidentiality of Alcohol and Drug Abuse Patient Records regulations: The Federal rules restrict any use of the information to criminally investigate or prosecute any alcohol or drug abuse patient.[facility] HospitalIn the event this information is protected by the Federal Confidentiality of Alcohol and Drug Abuse Patient Records regulations: The Federal rules restrict any use of the information to criminally investigate or prosecute any alcohol or drug abuse patient.[facility] HospitalIn the event this information is protected by the Federal Confidentiality of Alcohol and Drug Abuse Patient Records regulations: The Federal rules restrict any use of the information to criminally investigate or prosecute any alcohol or drug abuse patient.[facility] HospitalIn the event this information is protected by the Federal Confidentiality of Alcohol and Drug Abuse Patient Records regulations: The Federal rules restrict any use of the information to criminally investigate or prosecute any alcohol or drug abuse patient.[facility] HospitalIn the event this information is protected by the Federal Confidentiality of Alcohol and Drug Abuse Patient Records regulations: The Federal rules restrict any use of the information to criminally investigate or prosecute any alcohol or drug abuse patient.[facility] HospitalIn the event this information is protected by the Federal Confidentiality of Alcohol and Drug Abuse Patient Records regulations: The Federal rules restrict any use of the information to criminally investigate or prosecute any alcohol or drug abuse patient.[facility] HospitalIn the event this information is protected by the Federal Confidentiality of Alcohol and Drug Abuse Patient Records regulations: The Federal rules restrict any use of the information to criminally investigate or prosecute any alcohol or drug abuse patient.[facility] HospitalIn the event this information is protected by the Federal Confidentiality of Alcohol and Drug Abuse Patient Records regulations: The Federal rules restrict any use of the information to criminally investigate or prosecute any alcohol or drug abuse patient.[facility] HospitalIn the event this information is protected by the Federal Confidentiality of Alcohol and Drug Abuse Patient Records regulations: The Federal rules restrict any use of the information to criminally investigate or prosecute any alcohol or drug abuse patient.[facility] HospitalIn the event this information is protected by the Federal Confidentiality of Alcohol and Drug Abuse Patient Records regulations: The Federal rules restrict any use of the information to criminally investigate or prosecute any alcohol or drug abuse patient.[facility] HospitalIn the event this information is protected by the Federal Confidentiality of Alcohol and Drug Abuse Patient Records regulations: The Federal rules restrict any use of the information to criminally investigate or prosecute any alcohol or drug abuse patient.[facility] HospitalIn the event this information is protected by the Federal Confidentiality of Alcohol and Drug Abuse Patient Records regulations: The Federal rules restrict any use of the information to criminally investigate or prosecute any alcohol or drug abuse patient.[facility] HospitalIn the event this information is protected by the Federal Confidentiality of Alcohol and Drug Abuse Patient Records regulations: The Federal rules restrict any use of the information to criminally investigate or prosecute any alcohol or drug abuse patient.[facility] HospitalIn the event this information is protected by the Federal Confidentiality of Alcohol and Drug Abuse Patient Records regulations: The Federal rules restrict any use of the information to criminally investigate or prosecute any alcohol or drug abuse patient.[facility] HospitalIn the event this information is protected by the Federal Confidentiality of Alcohol and Drug Abuse Patient Records regulations: The Federal rules restrict any use of the information to criminally investigate or prosecute any alcohol or drug abuse patient.[facility] HospitalIn the event this information is protected by the Federal Confidentiality of Alcohol and Drug Abuse Patient Records regulations: The Federal rules restrict any use of the information to criminally investigate or prosecute any alcohol or drug abuse patient.[facility] HospitalIn the event this information is protected by the Federal Confidentiality of Alcohol and Drug Abuse Patient Records regulations: The Federal rules restrict any use of the information to criminally investigate or prosecute any alcohol or drug abuse patient.[facility] HospitalIn the event this information is protected by the Federal Confidentiality of Alcohol and Drug Abuse Patient Records regulations: The Federal rules restrict any use of the information to criminally investigate or prosecute any alcohol or drug abuse patient.[facility] HospitalIn the event this information is protected by the Federal Confidentiality of Alcohol and Drug Abuse Patient Records regulations: The Federal rules restrict any use of the information to criminally investigate or prosecute any alcohol or drug abuse patient.[facility] HospitalIn the event this information is protected [...] any alcohol or drug abuse patient.[facility] HospitalIn the event this information is protected by the Federal Confidentiality of Alcohol and Drug Abuse Patient Records regulations: The Federal rules restrict any use of the information to criminally investigate or prosecute any alcohol or drug abuse patient.[facility] HospitalIn the event this information is protected by the Federal Confidentiality of Alcohol and Drug Abuse Patient Records regulations: The Federal rules restrict any use of the information to criminally investigate or prosecute any alcohol or drug abuse patient.[facility] HospitalIn the event this information is protected by the Federal Confidentiality of Alcohol and Drug Abuse Patient Records regulations: The Federal rules restrict any use of the information to criminally investigate or prosecute any alcohol or drug abuse patient.[facility] HospitalIn the event this information is protected by the Federal Confidentiality of Alcohol and Drug Abuse Patient Records regulations: The Federal rules restrict any use of the information to criminally investigate or prosecute any alcohol or drug abuse patient.[facility] HospitalIn the event this information is protected by the Federal Confidentiality of Alcohol and Drug Abuse Patient Records regulations: The Federal rules restrict any use of the information to criminally investigate or prosecute any alcohol or drug abuse patient.[facility] HospitalIn the event this information is protected by the Federal Confidentiality of Alcohol and Drug Abuse Patient Records regulations: The Federal rules restrict any use of the information to criminally investigate or prosecute any alcohol or drug abuse patient.[facility] HospitalIn the event this information is protected by the Federal Confidentiality of Alcohol and Drug Abuse Patient Records regulations: The Federal rules restrict any use of the information to criminally investigate or prosecute any alcohol or drug abuse patient.[facility] HospitalIn the event this information is protected by the Federal Confidentiality of Alcohol and Drug Abuse Patient Records regulations: The Federal rules restrict any use of the information to criminally investigate or prosecute any alcohol or drug abuse patient.[facility] HospitalIn the event this information is protected by the Federal Confidentiality of Alcohol and Drug Abuse Patient Records regulations: The Federal rules restrict any use of the information to criminally investigate or prosecute any alcohol or drug abuse patient.[facility] HospitalIn the event this information is protected by the Federal Confidentiality of Alcohol and Drug Abuse Patient Records regulations: The Federal rules restrict any use of the information to criminally investigate or prosecute any alcohol or drug abuse patient.[facility] HospitalIn the event this information is protected by the Federal Confidentiality of Alcohol and Drug Abuse Patient Records regulations: The Federal rules restrict any use of the information to criminally investigate or prosecute any alcohol or drug abuse patient.[facility] HospitalIn the event this information is protected by the Federal Confidentiality of Alcohol and Drug Abuse Patient Records regulations: The Federal rules restrict any use of the information to criminally investigate or prosecute any alcohol or drug abuse patient.[facility] HospitalIn the event this information is protected by the Federal Confidentiality of Alcohol and Drug Abuse Patient Records regulations: The Federal rules restrict any use of the information to criminally investigate or prosecute any alcohol or drug abuse patient.[facility] HospitalIn the event this information is protected by the Federal Confidentiality of Alcohol and Drug Abuse Patient Records regulations: The Federal rules restrict any use of the information to criminally investigate or prosecute any alcohol or drug abuse patient.[facility] HospitalIn the event this information is protected by the Federal Confidentiality of Alcohol and Drug Abuse Patient Records regulations: The Federal rules restrict any use of the information to criminally investigate or prosecute any alcohol or drug abuse patient.[facility] HospitalIn the event this information is protected by the Federal Confidentiality of Alcohol and Drug Abuse Patient Records regulations: The Federal rules restrict any use of the information to criminally investigate or prosecute any alcohol or drug abuse patient.[facility] HospitalIn the event this information is protected by the Federal Confidentiality of Alcohol and Drug Abuse Patient Records regulations: The Federal rules restrict any use of the information to criminally investigate or prosecute any alcohol or drug abuse patient.[facility] HospitalIn the event this information is protected by the Federal Confidentiality of Alcohol and Drug Abuse Patient Records regulations: The Federal rules restrict any use of the information to criminally investigate or prosecute any alcohol or drug abuse patient.[facility] HospitalIn the event this information is protected by the Federal Confidentiality of Alcohol and Drug Abuse Patient Records regulations: The Federal rules restrict any use of the information to criminally investigate or prosecute any alcohol or drug abuse patient.[facility] HospitalIn the event this information is protected by the Federal Confidentiality of Alcohol and Drug Abuse Patient Records regulations: The Federal rules restrict any use of the information to criminally investigate or prosecute any alcohol or drug abuse patient.[facility] HospitalIn the event this information is protected by the Federal Confidentiality of Alcohol and Drug Abuse Patient Records regulations: The Federal rules restrict any use of the information to criminally investigate or prosecute any alcohol or drug abuse patient.[facility] HospitalIn the event this information is protected by the Federal Confidentiality of Alcohol and Drug Abuse Patient Records regulations: The Federal rules restrict any use of the information to criminally investigate or prosecute any alcohol or drug abuse patient.[facility] HospitalIn the event this information is protected by the Federal Confidentiality of Alcohol and Drug Abuse Patient Records regulations: The Federal rules restrict any use of the information to criminally investigate or prosecute any alcohol or drug abuse patient.[facility] HospitalIn the event this information is protected by the Federal Confidentiality of Alcohol and Drug Abuse Patient Records regulations: The Federal rules restrict any use of the information to criminally investigate or prosecute any alcohol or drug abuse patient.[facility] HospitalIn the event this information is protected by the Federal Confidentiality of Alcohol and Drug Abuse Patient Records regulations: The Federal rules restrict any use of the information to criminally investigate or prosecute any alcohol or drug abuse patient.[facility] Care Teams (unrecognized sec tion and content) Team Status: Active Member Role Status Dates WALESKA Galloway Primary Care Provider Active Team Status: Inactive Member Role Status Dates WALESKA Galloway Primary Care Provider Active Start: November 30, 2024 End: November 30, 2024 Margie Arnett NP Attending Provider Active Start: November 30, 2024 End: November 30, 2024 Team Status: Inactive Member Role Status Dates WALESKA Galloway Primary Care Provider Active Start: December 12, 2024 End: December 12, 2024 Bandar Portillo APRN Attending Provider Active Start: December 12, 2024 End: December 12, 2024 Team Status: Inactive Member Role Status Dates Gay Enciso PRINT BIND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-C Primary Care Provider Active Start: January 17, 2025 End: January 17, 2025 Margie Arnett NP Attending Provider Active Start: January 17, 2025 End: January 17, 2025 Team Status: Active Member Role Status Dates Gay Enciso PRINT BIND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-C Primary Care Provider Active Start: January 31, 2025 Adolfo Kang MD Attending Provider Active Sta rt: January 31, 2025 Adolfo Kang MD Other Provider Active Start: January 31, 2025 Team Status: Inactive Member Role Status Dates Gay Enciso PRINT BIND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-C Primary Care Provider Active Start: February 14, [...] 2025 End: February 28, 2025 Gay Enciso PRINT BIND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-C Primary Care Provider Active Start: February 28, 2025 End: February 28, 2025 Team Status: Active Member Role Status Dates Gay Enciso PRINT BIND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-C Primary Care Provider Active Start: November 21, 2024 Adolfo Kang MD Attending Provider Active Sta rt: November 21, 2024 Team Status: Inactive Member Role Status Dates Gay Enciso PRINT BIND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-C Primary Care Provider Active Start: November 21, 2024 End: November 21, 2024 Adolfo Kang MD Attending Provider Active Sta rt: November 21, 2024 End: November 21, 2024 Team Status: Active Member Role Status Dates Gay Enciso PRINT BIND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-C Primary Care Provider Active Start: November 22, [...] November 04, 2023 End: November 04, 2023 X Ray Developer Relationship Specialty Start Date End Date Gay Enciso, SENIOR NURSE MANAGER.RADIOLOGY SPECIAL PROCEDURE TECH [address] [place] [address] PCP - General Family Practice 10/24/21 X Ray Developer Relationship Specialty Start Date End Date Gay Enciso, SENIOR NURSE MANAGER.RADIOLOGY SPECIAL PROCEDURE TECH [address] [place] [address] PCP - General Family Medicine 10/24/21 Manuel Ferris MD [address] [place] [address] Referring Family Medicine 02/12/22 X Ray Developer Relationship Specialty Start Date End Date Manuel Ferris MD [address] [place] [address] PCP - General Family Medicine 02/27/22 Manuel Ferris MD [address] [place] [address] Referring Family Medicine 02/12/22 X Ray Developer Relationship Specialty Start Date End Date Manuel Ferris MD [address] [place] [address] PCP - General Family Medicine 02/27/22 Manuel Ferris MD [address] [facility] [place] [address] Referring Family Medicine 02/12/22 X Ray Developer Relationship Specialty Start Date End Date Manuel Ferris MD [address] [facility] [place] [address] PCP - General Family Medicine 02/27/22 Manuel Ferris MD [address] [facility] [place] [address] Referring Family Medicine 02/12/22 X Ray Developer Relationship Specialty Start Date End Date Manuel Ferris MD [address] [facility] [place] [address] PCP - General Family Medicine 02/27/22 Manuel Ferris MD [address] [facility] [place] [address] Referring Family Medicine 02/12/22 X Ray Developer Relationship Specialty Start Date End Date Manuel Ferris MD [address] [facility] [place] [address] PCP - General Family Medicine 02/27/22 Manuel Ferris MD [address] [facility] [place] [address] Referring Family Medicine 02/12/22 X Ray Developer Relationship Specialty Start Date End Date Manuel Ferris MD [address] [facility] [address] PCP - General Family Medicine 02/27/22 Manuel Ferris MD [address] [facility] [place] [address] Referring Family Medicine 02/12/22 X Ray Developer Relationship Specialty Start Date End Date Manuel Ferris MD [address] [facility] [address] PCP - General Family Medicine 02/27/22 Manuel Ferris MD [address] [facility] [place] [address] Referring Family Medicine 02/12/22 X Ray Developer Relationship Specialty Start Date End Date Manuel Ferris MD [address] [facility] [place] [address] PCP - General Family Medicine 02/27/22 Manuel Ferris MD [address] [facility] [place] [address] Referring Family Medicine 02/12/22 X Ray Developer Relationship Specialty Start Date End Date Manuel Ferris MD [address] [facility] [address] PCP - General Family Medicine 02/27/22 Manuel Ferris MD [address] [facility] [place] [address] Referring Family Medicine 02/12/22 X Ray Developer Relationship Specialty Start Date End Date Manuel Ferris MD [address] [facility] [place] [address] PCP - General Family Medicine 02/27/22 Manuel Ferris MD [address] [facility] [place] [address] Referring Family Medicine 02/12/22 X Ray Developer Relationship Specialty Start Date End Date Manuel Ferris MD [address] [facility] [place] [address] PCP - General Family Medicine 02/27/22 Manuel Ferris MD [address] [facility] [place] [address] Referring Family Medicine 02/12/22 X Ray Developer Relationship Specialty Start Date End Date Manuel Ferris MD [address] [facility] [place] [address] PCP - General Family Medicine 02/27/22 Manuel Ferris MD [address] [facility] [place] [address] Referring Family Medicine 02/12/22 X Ray Developer Relationship Specialty Start Date End Date Manuel Ferris MD [address] [facility] [address] PCP - General Family Medicine 02/27/22 Manuel Ferris MD [address] [facility] [place] [address] Referring Family Medicine 02/12/22 X Ray Developer Relationship Specialty Start Date End Date Manuel Ferris MD [address] [facility] [place] [address] PCP - General Family Medicine 02/27/22 Manuel Ferris MD [address] [facility] [place] [address] Referring Family Medicine 02/12/22 X Ray Developer Relationship Specialty Start Date End Date Manuel Ferris MD [address] [facility] [place] [address] PCP - General Family Medicine 02/27/22 Manuel Ferris MD [address] [facility] [place] [address] Referring Family Medicine 02/12/22 X Ray Developer Relationship Specialty Start Date End Date Manuel Ferris MD [address] [facility] [address] PCP - General Family Medicine 02/27/22 Manuel Ferris MD [address] [facility] [place] [address] Referring Family Medicine 02/12/22 X Ray Developer Relationship Specialty Start Date End Date Manuel Ferris MD [address] [facility] [address] PCP - General Family Medicine 02/27/22 Manuel Ferris MD [address] [facility] [place] [address] Referring Family Medicine 02/12/22 X Ray Developer Relationship Specialty Start Date End Date Manuel Ferris MD [address] [place] [facility] [address] PCP - General Family Medicine 02/27/22 Manuel Ferris MD [address] [place] [facility] [address] Referring Family Medicine 02/12/22 X Ray Developer Relationship Specialty Start Date End Date Manuel Ferris MD [address] [place] [facility] [address] PCP - General Family Medicine 02/27/22 Manuel Ferris MD [address] [place] [facility] [address] Referring Family Medicine 02/12/22 X Ray Developer Relationship Specialty Start Date End Date Manuel Ferris MD [address] [place] [facility] [address] PCP - General Family Medicine 02/27/22 Manuel Ferris MD [address] [facility] [place] [address] Referring Family Medicine 02/12/22 X Ray Developer Relationship Specialty Start Date End Date Manuel Ferris MD [address] [place] [facility] [address] PCP - General Family Medicine 02/27/22 Manuel Ferris MD [address] [place] [address] Referring Family Medicine 02/12/22 X Ray Developer Relationship Specialty Start Date End Date Manuel Ferris MD PCP - General Family Medicine 02/27/22 Manuel Ferris MD Referring Family Medicine 02/12/22 X Ray Developer Relationship Specialty Start Date End Date Manuel Ferris MD PCP - General Family Medicine 02/27/22 Manuel Ferris MD Referring Family Medicine 02/12/22 X Ray Developer Relationship Specialty Start Date End Date Manuel Ferris MD PCP - General Family Medicine 02/27/22 Manuel Ferris MD Referring Family Medicine 02/12/22 X Ray Developer Relationship Specialty Start Date End Date Manuel Ferris MD PCP - General Family Medicine 02/27/22 aMnuel Ferris MD Referring Family Medicine 02/12/22 X Ray Developer Relationship Specialty Start Date End Date Manuel Ferris MD PCP - General Family Medicine 02/27/22 Manuel Ferris MD Referring Family Medicine 02/12/22 X Ray Developer Relationship Specialty Start Date End Date Manuel Ferris MD PCP - General Family Medicine 02/27/22 Manuel Ferris MD Referring Family Medicine 02/12/22 X Ray Developer Relationship Specialty Start Date End Date Manuel Ferris MD PCP - General Family Medicine 02/27/22 Manuel Ferris MD Referring Family Medicine 02/12/22 X Ray Developer Relationship Specialty Start Date End Date Manuel Ferris MD PCP - General Family Medicine 02/27/22 Manuel Ferris MD Referring Family Medicine 02/12/22 X Ray Developer Relationship Specialty Start Date End Date Manuel Ferris MD PCP - General Family Medicine 02/27/22 Manuel Ferris MD Referring Family Medicine 02/12/22 X Ray Developer Relationship Specialty Start Date End Date Manuel Ferris MD PCP - General Family Medicine 02/27/22 Manuel Ferris MD Referring Family Medicine 02/12/22 X Ray Developer Relationship Specialty Start Date End Date Manuel Ferris MD PCP - General Family Medicine 02/27/22 Manuel Ferris MD Referring Family Medicine 02/12/22 X Ray Developer Relationship Specialty Start Date End Date Manuel Ferris MD PCP - General Family Medicine 02/27/22 Manuel Ferris MD Referring Family Medicine 02/12/22 X Ray Developer Relationship Specialty Start Date End Date Manuel Ferris MD PCP - General Family Medicine 02/27/22 Manuel Ferris MD Referring Family Medicine 02/12/22 X Ray Developer Relationship Specialty Start Date End Date Manuel Ferris MD PCP - General Family Medicine 02/27/22 Manuel Ferris MD Referring Family Medicine 02/12/22 X Ray Developer Relationship Specialty Start Date End Date Manuel Ferris MD PCP - General Family Medicine 02/27/22 Manuel Ferris MD Referring Family Medicine 02/12/22 X Ray Developer Relationship Specialty Start Date End Date Manuel Ferris MD PCP - General Family Medicine 02/27/22 Manuel Ferris MD Referring Family Medicine 02/12/22 X Ray Developer Relationship Specialty Start Date End Date Manuel Ferris MD PCP - General Family Medicine 02/27/22 Manuel Ferris MD Referring Family Medicine 02/12/22 X Ray Developer Relationship Specialty Start Date End Date Manuel Ferris MD PCP - General Family Medicine 02/27/22 Manuel Ferris MD Referring Family Medicine 02/12/22 X Ray Developer Relationship Specialty Start Date End Date Manuel Ferris MD PCP - General Family Medicine 02/27/22 Manuel Ferris MD Referring Family Medicine 02/12/22 X Ray Developer Relationship Specialty Start Date End Date Manuel Ferris MD PCP - General Family Medicine 02/27/22 Manuel Ferris MD Referring Family Medicine 02/12/22 X Ray Developer Relationship Specialty Start Date End Date Manuel Ferris MD PCP - General Family Medicine 02/27/22 Manuel Ferris MD Referring Family Medicine 02/12/22 X Ray Developer Relationship Specialty Start Date End Date Manuel Ferris MD PCP - General Family Medicine 02/27/22 Manuel Ferris MD Referring Family Medicine 02/12/22 X Ray Developer Relationship Specialty Start Date End Date Manuel Ferris MD PCP - General Family Medicine 02/27/22 Manuel Ferris MD Referring Family Medicine 02/12/22 X Ray Developer Relationship Specialty Start Date End Date Manuel Ferris MD PCP - General Family Medicine 02/27/22 Manuel Ferris MD Referring Family Medicine 02/12/22 X Ray Developer Relationship Specialty Start Date End Date Manuel Ferris MD PCP - General Family Medicine 02/27/22 Manuel Ferris MD Referring Family Medicine 02/12/22 X Ray Developer Relationship Specialty Start Date End Date Manuel Ferris MD PCP - General Family Medicine 02/27/22 Manuel Ferris MD Referring Family Medicine 02/12/22 X Ray Developer Relationship Specialty Start Date End Date Charles Nicole DO [address] [place] [address] PCP - General 10/22/18 Michelle Jasmine APRN-RADIOLOGY SPECIAL PROCEDURE TECH [address] [place] [address] [id number] Nurse Practitioner Cardiology 06/08/23 X Ray Developer Relationship Specialty Start Date End Date Gay Enciso SENIOR NURSE MANAGER-RADIOLOGY SPECIAL PROCEDURE TECH [address] [place] [address] PCP - General 07/13/23 Michelle Jasmine, SENIOR NURSE MANAGER-RADIOLOGY SPECIAL PROCEDURE TECH [address] [facility] [address] [place] [address] Nurse Practitioner Cardiology 06/08/23 Aurora Patel MD [address] [facility] [address] [place] [address] Consulting Physician Cardiology 06/23/23 X Ray Developer Relationship Specialty Start Date End Date Manuel Ferris MD PCP - General Family Medicine 02/27/22 Manuel Ferris MD Referring Family Medicine 02/12/22 X Ray Developer Relationship Specialty Start Date End Date Manuel Ferris MD PCP - General Family Medicine 02/27/22 Manuel Ferris MD Referring Family Medicine 02/12/22 Team Status: Active Member Role Status Dates Lui Salomon MD Primary Care Provider Active Start: July 28, 2023 Virgil Green MD Attending Provider Active S tart: July 28, 2023 X Ray Developer Relationship Specialty Start Date End Date Manuel Ferris MD PCP - General Family Medicine 02/27/22 Manuel Ferris MD Referring Family Medicine 02/12/22 Team Status: Inactive Member Role Status Dates Lui Salomon MD Primary Care Provider Active Start: December 16, 2023 End: December 16, 2023 Mirela Kelsey MD Attending Provider Active Sta rt: December 16, 2023 End: December 16, 2023 X Ray Developer Relationship Specialty Start Date End Date Manuel Ferris MD PCP - General Family Medicine 02/27/22 Manuel Ferris MD Referring Family Medicine 02/12/22 X Ray Developer Relationship Specialty Start Date End Date Manuel Ferris MD PCP - General Family Medicine 02/27/22 Manuel Ferris MD Referring Family Medicine 02/12/22 X Ray Developer Relationship Specialty Start Date End Date Manuel Ferris MD PCP - General Family Medicine 02/27/22 Manuel Ferris MD Referring Family Medicine 02/12/22 X Ray Developer Relationship Specialty Start Date End Date [...] February 28, 2024 End: February 28, 2024 X Ray Developer Relationship Specialty Start Date End Date Charles Nicole MD [address] [place] [address] PCP - General Family Medicine 02/09/24 Team Status: Inactive Member Role Status Dates WALESKA Galloway Primary Care Provider Active Start: March 16, 2024 End: March 16, 2024 Bandar Portillo APRN Attending Provider Active Start: March 16, 2024 End: March 16, 2024 X Ray Developer Relationship Specialty Start Date End Date Charles Nicole MD [address] [place] [address] PCP - General Family Medicine 02/09/24 X Ray Developer Relationship Specialty Start Date End Date Charles Nicole MD [address] [place] [address] PCP - General Family Medicine 02/09/24 X Ray Developer Relationship Specialty Start Date End Date Charles Nicole MD [address] [place] [address] PCP - General Family Medicine 02/09/24 X Ray Developer Relationship Specialty Start Date End Date Charles Nicole MD [address] [place] [address] PCP - General Family Medicine 02/09/24 X Ray Developer Relationship Specialty Start Date End Date Charles Nicole MD [address] [place] [address] PCP - General Family Medicine 02/09/24 X Ray Developer Relationship Specialty Start Date End Date Manuel Ferris MD PCP - General Family Medicine 02/27/22 Manuel Ferris MD Referring Family Medicine 02/12/22 X Ray Developer Relationship Specialty Start Date End Date Charles Nicole MD [address] [place] [address] PCP - General Family Medicine 02/09/24 X Ray Developer Relationship Specialty Start Date End Date Charles Nicole MD [address] [place] [address] PCP - General Family Medicine 02/09/24 X Ray Developer Relationship Specialty Start Date End Date Charles Nicole MD [address] [place] [address] PCP - General Family Medicine 02/09/24 X Ray Developer Relationship Specialty Start Date End Date Charles Nicole MD [address] [place] [address] PCP - General Family Medicine 02/09/24 X Ray Developer Relationship Specialty Start Date End Date Manuel Ferris MD PCP - General Family Medicine 02/27/22 Manuel Ferris MD Referring Family Medicine 02/12/22 X Ray Developer Relationship Specialty Start Date End Date Charles Nicole MD [address] [place] [address] PCP - General Family Medicine 02/09/24 X Ray Developer Relationship Specialty Start Date End Date Manuel Ferris MD PCP - General Family Medicine 02/27/22 Manuel Ferris MD Referring Family Medicine 02/12/22 X Ray Developer Relationship Specialty Start Date End Date Manuel Ferris MD PCP - General Family Medicine 02/27/22 Manuel Ferris MD Referring Family Medicine 02/12/22 X Ray Developer Relationship Specialty Start Date End Date Charles Nicole MD [address] [place] [address] PCP - General Family Medicine 02/09/24 X Ray Developer Relationship Specialty Start Date End Date Manuel Ferris MD PCP - General Family Medicine 02/27/22 Manuel Ferris MD Referring Family Medicine 02/12/22 Manuel Ferris MD [address] [place] [address] Referring Family Medicine 07/06/24 Team Status: Inactive Member Role Status Dates WALESKA Galloway Primary Care Provider Active Start: July 10, 2024 End: July 10, 2024 Adolfo Kang MD Attending Provider Active Sta rt: July 10, 2024 End: July 10, 2024 X Ray Developer Relationship Specialty Start Date End Date Manuel Ferris MD PCP - General Family Medicine 02/27/22 Manuel Ferris MD Referring Family Medicine 02/12/22 Manuel Ferris MD [address] [place] [address] Referring Family Medicine 07/06/24 X Ray Developer Relationship Specialty Start Date End Date Manuel Ferris MD PCP - General Family Medicine 02/27/22 Manuel Ferris MD Referring Family Medicine 02/12/22 Manuel Ferris MD [address] [place] [address] Referring Family Medicine 07/06/24 Team Status: Inactive Member Role Status Dates WALESKA Galloway Primary Care Provider Active Start: July 19, 2024 End: July 19, 2024 Adolfo Kang MD Attending Provider Active Sta rt: July 19, 2024 End: July 19, 2024 X Ray Developer Relationship Specialty Start Date End Date Gay Enciso MD [address] [place] [address] Referring Physician Family Medicine 07/18/24 X Ray Developer Relationship Specialty Start Date End Date Manuel Ferris MD PCP - General Family Medicine 02/27/22 Manuel Ferris MD Referring Family Medicine 02/12/22 Manuel Ferris MD [address] [place] [address] Referring Family Medicine 07/06/24 X Ray Developer Relationship Specialty Start Date End Date Gay Enciso MD [address] [place] [address] Referring Physician Family Medicine 07/18/24 X Ray Developer Relationship Specialty Start Date End Date Gay Enciso SENIOR NURSE MANAGER-RADIOLOGY SPECIAL PROCEDURE TECH [address] [place] [address] PCP - General 07/13/23 Michelle Jasmine, SENIOR NURSE MANAGER-RADIOLOGY SPECIAL PROCEDURE TECH Nurse Practitioner Cardiology 06/08/23 Aurora Patel MD [...] July 31, 2024 End: July 31, 2024 X Ray Developer Relationship Specialty Start Date End Date Manuel Ferris MD PCP - General Family Medicine 02/27/22 Manuel Ferris MD Referring Family Medicine 02/12/22 Manuel Ferris MD [address] [place] [address] Referring Family Medicine 07/06/24 X Ray Developer Relationship Specialty Start Date End Date Manuel Ferris MD PCP - General Family Medicine 02/27/22 Manuel Ferris MD Referring Family Medicine 02/12/22 Manuel Ferris MD [address] [place] [id number] Referring Family Medicine 07/06/24 X Ray Developer Relationship Specialty Start Date End Date Manuel Ferris MD PCP - General Family Medicine 02/27/22 Manuel Ferris MD Referring Family Medicine 02/12/22 Manuel Ferris MD [address] [place] [id number] Referring Family Medicine 07/06/24 Team Status: Inactive Member Role Status Dates Gay Enciso , CARISSA-C Primary Care Provider Active Start: August 22, 2024 End: August 22, 2024 Adolfo Kang MD Attending Provider Active Sta rt: August 22, 2024 End: August 22, 2024 X Ray Developer Relationship Specialty Start Date End Date Gay Enciso MD [address] [place] [address] Referring Physician Family Medicine 07/18/24 X Ray Developer Relationship Specialty Start Date End Date Manuel Ferris MD PCP - General Family Medicine 02/27/22 Manuel Ferris MD Referring Family Medicine 02/12/22 Manuel Ferris MD [address] [place] [address] Referring Family Medicine 07/06/24 X Ray Developer Relationship Specialty Start Date End Date Manuel Ferris MD PCP - General Family Medicine 02/27/22 Manuel Ferris MD Referring Family Medicine 02/12/22 Manuel Ferris MD [address] [place] [address] Referring Family Medicine 07/06/24 X Ray Developer Relationship Specialty Start Date End Date Gay Enciso MD [address] [place] [address] Referring Physician Family Medicine 07/18/24 X Ray Developer Relationship Specialty Start Date End Date Gay Enciso MD [address] [place] [address] Referring Physician Family Medicine 07/18/24 X Ray Developer Relationship Specialty Start Date End Date Manuel Ferris MD PCP - General Family Medicine 02/27/22 Manuel Ferris MD Referring Family Medicine 02/12/22 Manuel Ferris MD [address] [place] [address] Referring Family Medicine 07/06/24 X Ray Developer Relationship Specialty Start Date End Date Manuel Ferris MD PCP - General Family Medicine 02/27/22 Manuel Ferris MD Referring Family Medicine 02/12/22 Manuel Ferris MD [address] [place] [address] Referring Family Medicine 07/06/24 X Ray Developer Relationship Specialty Start Date End Date Manuel Ferris MD PCP - General Family Medicine 02/27/22 Manuel Ferris MD Referring Family Medicine 02/12/22 Manuel Ferris MD [address] [place] [address] Referring Family Medicine 07/06/24 X Ray Developer Relationship Specialty Start Date End Date Manuel Ferris MD PCP - General Family Medicine 02/27/22 Manuel Ferris MD Referring Family Medicine 02/12/22 Manuel Ferris MD [address] [place] [address] Referring Family Medicine 07/06/24 X Ray Developer Relationship Specialty Start Date End Date Manuel Ferris MD PCP - General Family Medicine 02/27/22 Manuel Ferris MD Referring Family Medicine 02/12/22 Manuel Ferris MD [address] [place] [address] Referring Family Medicine 07/06/24 X Ray Developer Relationship Specialty Start Date End Date Manuel Ferris MD PCP - General Family Medicine 02/27/22 Manuel Ferris MD Referring Family Medicine 02/12/22 Manuel Ferris MD [address] [place] [address] Referring Family Medicine 07/06/24 X Ray Developer Relationship Specialty Start Date End Date Manuel Ferris MD PCP - General Family Medicine 02/27/22 Manuel Ferris MD Referring Family Medicine 02/12/22 Manuel Ferris MD [address] [place] [address] Referring Family Medicine 07/06/24 X Ray Developer Relationship Specialty Start Date End Date Manuel Ferris MD PCP - General Family Medicine 02/27/22 Manuel Ferris MD Referring Family Medicine 02/12/22 Manuel Ferris MD [address] [place] [address] Referring Family Medicine 07/06/24 X Ray Developer Relationship Specialty Start Date End Date Manuel Ferris MD PCP - General Family Medicine 02/27/22 Manuel Ferris MD Referring Family Medicine 02/12/22 Manuel Ferris MD [address] [place] [id number] Referring Family Medicine 07/06/24 X Ray Developer Relationship Specialty Start Date End Date Manuel Ferris MD PCP - General Family Medicine 02/27/22 Manuel Ferris MD Referring Family Medicine 02/12/22 Manuel Ferris MD [address] [place] [id number] Referring Family Medicine 07/06/24 X Ray Developer Relationship Specialty Start Date End Date Manuel Ferris MD PCP - General Family Medicine 02/27/22 Manuel Ferris MD Referring Family Medicine 02/12/22 Manuel Ferris MD [address] [place] [id number] Referring Family Medicine 07/06/24 X Ray Developer Relationship Specialty Start Date End Date Manuel Ferris MD PCP - General Family Medicine 02/27/22 Manuel Ferris MD Referring Family Medicine 02/12/22 Manuel Ferris MD [address] [place] [id number] Referring [facility] 07/06/24 X Ray Developer Relationship Specialty Start Date End Date Manuel Ferris MD PCP - General Family Medicine 02/27/22 Manuel Ferris MD Referring Family Medicine 02/12/22 Manuel Ferris MD [address] [place] [id number] Referring Family Medicine 07/06/24 Team Status: Inactive [...] November 13, 2024 End: November 13, 2024 X Ray Developer Relationship Specialty Start Date End Date Gay Enciso MD [address] [place] [id number] Referring Physician Family Medicine 07/18/24 X Ray Developer Relationship Specialty Start Date End Date Manuel Ferris MD PCP - General Family Medicine 02/27/22 Manuel Ferris MD Referring Family Medicine 02/12/22 Manuel Ferris MD [address] [place] [address] Referring Family Medicine 07/06/24 X Ray Developer Relationship Specialty Start Date End Date Manuel Ferris MD PCP - General Family Medicine 02/27/22 Manuel Ferris MD Referring Family Medicine 02/12/22 Manuel Ferris MD [address] [place] [id number] Referring Family Medicine 07/06/24 X Ray Developer Relationship Specialty Start Date End Date Manuel Ferris MD PCP - General Family Medicine 02/27/22 Manuel Ferris MD Referring Family Medicine 02/12/22 Manuel Ferris MD [address] [place] [id number] Referring Family Medicine 07/06/24 Team Status: Inactive Member Role Status Dates Gay Enciso PRINT BIND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-C Primary Care Provider Active Start: January 31, 2025 End: January 31, 2025 Adolfo Kang MD Attending Provider Active Sta rt: January 31, 2025 End: January 31, 2025 X Ray Developer Relationship Specialty Start Date End Date Gay Enciso MD [address] [place] [address] Referring Physician Family Medicine 07/18/24 X Ray Developer Relationship Specialty Start Date End Date Gay Enciso MD [address] [place] [address] Referring Physician Family Medicine 07/18/24 X Ray Developer Relationship Specialty Start Date End Date Gay Enciso MD [address] [place] [address] Referring Physician Family Medicine 07/18/24 Team Status: Inactive Member Role Status Dates Terence Blum MD Attending Provider Active Sta rt: March 02, 2025 End: March 02, 2025 Gay Enciso , PRINT BIND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-C Primary Care Provider Active Start: March 02, 2025 End: March 02, 2025 X Ray Developer Relationship Specialty Start Date End Date Gay Enciso MD [address] [place] [address] Referring Physician Family Medicine 07/18/24 Team Status: Inactive Member Role Status Dates Jose Perez DO Attending Provider Active S tart: March 03, 2025 End: March 03, 2025 Inactive Administered Medications - up to 3 [...] BE BASED ON THE PRIMARY CLINICAL RECORDS. [employer] provides no warranty or guarantee of the accuracy or completeness of information in this document.
[2025-03-09 16:59] LABS: Glucose Urine UA 100 mg/dL (NEGATIVE)
[2025-03-09 17:17] LABS: Cast Seen? NONE SEEN #/LPF (NONE SEEN); Crystals Seen? None Seen #/HPF (None Seen); Urine Culture Indicated ALREADY ORDERED
== END 2025-03-09 16:38 | disposition home or self-care (01) ==
LOC: LAB 16:37
PROVIDERS: PCP Nurse Practitioner Family; Visit Provider Nurse Practitioner Family
DX: E11.9 Type 2 diabetes mellitus without complications (principal)
CPT/HCPCS: 81001; 87086

== ENCOUNTER 2025-03-09 22:12 | Emergency (ER) | payer OTHER, SELFPAY ==
--- OUTSIDE RECORDS SUMMARY | 2025-02-23 05:30 | XMS_ITS ---
Author Organization [facility] [place] Address [address] [place] [address] Care Team Providers Care Solid State Tester Name Role Phone Gay De La Torre Primary Care Provider Results Component Value Reference Range Notes GLYCOHEMOGLOBIN A1C Reviewed date:02/26/2025 09:22:15 AM Interpretation: Performing Lab: Notes/Report: The [facility] , Glycohemoglobin A1C 8.3 4.5-6.2 % ADA RECOMMENDED LIMIT 4.0 - 6.0 ADA THERAPEUTIC TARGET < 7.0 ACTION SUGGESTED > 7.0 Estimated Average Glucose 192 Performing Lab: see note ML - The [facility] LB REASON FOR VISIT labs from [facility] Encounters Encounter Location Date Provider Diagnosis [address] [address] 02/23/2025 Gay De La Torre Pre-diabetes R73.03 and 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-term current use of medication Z79.899 Assessments Encounter Date Diagnosis (ICD Code) Assessment Notes Treatment Notes Treatment Clinical Notes Section Notes 02/23/2025 Pre-diabetes (ICD-10 - R73.03) 02/23/2025 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-term current use of medication (ICD-10 - Z79.899) Plan Of Treatment Pending Test Test Name Order Date CMP - Comprehensive Metabolic Panel 07/2024 Progress Notes * Ariadna PANIAGUA BDOB:1980 (44 yo F)Acc No.[id number]:02/23/2025 Patient: Ariadna MOORE :1980 A ge:44 Y S ex:Female Address:[address] [place] [address], [place], [address] Subjective: * Chief Complaints: * l abs from [facility] * Medical History: * Surgical History: * Hospitalization/Major Diagno stic Procedure: * Medications: Objective: * Vitals: * Physical Examination: Assessment: * Assessment: 1. P re-diabetes - R73.03 (Primary) 2 . E ncounter for long-term current use of medication - Z79.899 Plan: * Treatment: 2. E ncounter for long-term current use of medication L AB: CMP - Comprehensive Metabolic Panel L AB: GLYCOHEMOGLOBIN A1C * Procedure Codes: * true * Date: Generated for Rosalee bustillo/Alfred/eTmattsmitting on: 1 10:34 PM EDT
--- OUTSIDE RECORDS SUMMARY | 2025-02-26 07:00 | XMS_ITS ---
Author Organization [facility] in [place] Address [address] [place] [address] Care Team Providers Care Fuel Dock Attendant Name Role Phone Gay De La Torre Primary Care Provider Allergies Allergen (clinical drug ingredient) Drug/Non Drug [...] ctive Results Component Value Reference Range Notes LACTATE or LACTIC ACID Reviewed date:02/27/2025 08:35:01 AM Interpretation: Performing Lab: Notes/Report: [facility] , Lactate/Lactic Acid 3.2 0.4-2.0 mmol/L RESULT S CALLED TO MONICA MORA LPN at 5668 Performing Lab: see note ML - [facility] REASON FOR VISIT [phone] labs, labs, went to ER loose stools thinks CDiff checked stool wasnt loose enough, gave her fluids, A1c high Medications Medication SIG (Take, Route, Frequency, Duration) Notes Start Date End Date Status Voltaren 1 % as directed External ly as needed 02/01/2024 Active Vitamin D (Ergocalciferol) 1.25 MG (89875 UT) 1 capsule Orally once weekly; Duration: 28 days Active Pregabalin 75 MG 3 capsule Orally onc e daily- as needed; Duration: 30 days Active Triamcinolone Acetonide 0.025 % APPLY TO AFFECTED AREA TWICE DAILY NEEDED FOR 30 DAYS External; Duration: 30 Days Active Nystatin 675999 UNIT/ML 4 mL Mouth/Throa t Four times a day; Duration: 7 days Active Pantoprazole Sodium 40 MG 1 tablet 1/2 to 1 hour before morning meal Orally Once a day; Duration: 90 days 07/27/2024 Active predniSONE 10 MG 1 tablet Orally once daily; Duration: 30 days Active Imuran 50 MG 3 tablets Orally onc e daily Active KlonoPIN 0.5 MG 1 tablet Orally Once a day prn; Duration: 30 days F41.9 12/07/2024 Active Methocarbamol 750 MG 1 tablet Orally Q H S prn; Duration: 10 days 07/27/2023 Active Metoprolol Tartrate 50 MG TAKE 2 TABLETS BY MOUTH TWICE A DAY WITH FOOD; Duration: 90 days Active Hydroxychloroquine Sulfate 400 MG 1 capsule Orally once daily; Duration: 30 days Active Fluocinonide 0.05 % 1 application Externally Once a day- as needed; Duration: 30 days Active Folic Acid Active HYDROcodone-Acetaminophe n 7.5-325 MG 1 tablet as needed Orally every 6 hrs 01/08/2025 Active Cymbalta 20 MG 1 capsule Orally Onc e a day; Duration: 30 days 02/01/2024 Active Dificid 200 MG 1 tablet Orally Twic e a day; Duration: 10 day(s) 08/11/2024 Active Cyanocobalamin 1000 MCG/ML 1 mL Injection monthly 12/28/2023 Activ e Benlysta 200 MG/ML 200mg Subcutaneous o nce weekly Active Clobetasol Propionate 0.05 % APPLY TO SCALP IN SHOWER 3 TO 4 TIMES A WEEK External; Duration: 30 Days Active Clotrimazole 10 MG 1 bk Mouth/Throa t Five times a day; Duration: 14 days 04/05/2024 Active Clotrimazole 10 MG 1 bk while on immunosuppressive medicine Mouth/Throat Three times a day; Duration: 30 day(s) 08/11/2024 Active Mounjaro 2.5 MG/0.5ML as directed Subcutaneous weekly; Duration: 28 days call for next dose 02/26/2025 Active Albuterol Sulfate HFA 108 (90 Base) MCG/ACT 2 puff as needed Inhalation every 4 hrs; Duration: 30 days 08/05/2023 Active amLODIPine Besylate 5 MG 1 tablet Orally Once a day; Duration: 30 days 02/03/2024 Active Social History Tobacco Use: Social History [...] Problem Status W/U Status Risk Notes Problem Type 2 diabetes mellitus (84127530) Type 2 diabetes mellitus (E11.9) Active confirmed Vital Signs Height 67 in 02/26/2025 Encounters Encounter Location Date Provider Diagnosis [facility] [address] [place] [address] 02/26/2025 Gay De La Torre Elevated lactic acid level R79.89 and Type 2 diabetes mellitus E11.9 Assessments Encounter Date Diagnosis (ICD Code) Assessment Notes Treatment Notes Treatment Clinical Notes Section Notes 02/26/2025 Elevated lactic acid level (ICD-10 - R79.89) 02/26/2025 Type 2 diabetes mellitus (ICD-10 - E11.9) Plan Of Treatment Medication Medication Name Sig Start Date Stop Date Notes Trulicity 1.5 MG/0.5ML as directed Subcu taneous weekly 07/04/2024 Mounjaro 2.5 MG/0.5ML as directed Subcut aneous weekly; Duration: 28 days 02/26/2025 call for next dose Pending Test Test Name Order Date C DIFFICILE BY PCR 02/26/2025 COMPREHENSIVE METABOLIC PANEL 02/26/2025 Next Appt Details Follow Up: prn, Reason: Progress Notes * Ariadna PANIAGUA BDOB:1980 (44 yo F)Acc No.[id number]:02/26/2025 TeleMed via Doxy Patient: Ariadna MOORE Provider: Abiola De La Torre ([facility]), FULLER BRUSH MAN :1980 A ge:44 Y S ex:Female Date:02/26/2025 Address:[address], [id number] Check In:10:41 AM ESTCheck Phil ut:11:47 AM EST Subjective: * Chief Complaints: * 1 . [phone] labs. 2. Labs. 3. went to ER loose stools thinks CDiff checked stool wasnt loose enough. 4. Gave her fluids. 5. A1c high. * HPI: G eneral: ER visit reviewed patient concerned about labs, concerned has c diff back A1c up. * Active Problem List I10 Hypertension Modified On:05/05/2023U Status:confirmed M32.9 Lupus Modified On:05/04/2023 Status:confirmed 780.79 Chronic fatigue Modified On:09/17/2022U Status:confirmed R59.1 Generalized enlarged lymph nodes Modified On:10/28/2022U Status:confirmed G47.30 Sleep apnea, unspeci fied Modified On:10/28/2022U Status:confirmed E78.00 Pure hypercholestero lemia, unspecified Modified On:06/24/2023U Status:confirmed F41.9 Anxiety Modified On:08/04/2023U Status:confirmed R10.9 Abdominal pressure Modified On:07/15/2023U Status:confirmed E04.1 Nontoxic single thyr oid nodule Modified On:08/09/2023U Status:confirmed D72.829 Elevated WBC count Modified On:01/03/2024U Status:confirmed I73.00 Raynauds phenomenon Modified On:02/01/2024U Status:confirmed R73.03 Pre-diabetes Modified On:04/07/2024U Status:confirmed K21.9 GERD (gastroesophage al reflux disease) Modified On:07/27/2024U Status:confirmed E04.1 Thyroid nodule Modified On:09/07/2024U Status:confirmed K76.0 Fatty liver Modified On:01/01/2025U Status:confirmed E11.9 Type 2 diabetes vashti itus Modified On:02/26/2025U Status:confirmed * Medical History: C hronic fatigue, Anxiety, Cervical lymphadenopathy, GERD (gastroesophageal reflux disease), Hypercholesterolemia, Hyperlipidemia, Lupus, Tachycardia, Prediabetes, Hypertension. * Surgical History: l ymph node biopsy 2020. * Hospitalization/Major Diagno stic Procedure: D enies Past Hospitalization. * Family History: F ather: , Stomach Cancer, diagnosed with Cancer. M other: alive, crohns disease, thyroid disease. [...] Syringe 200mg Subcutaneous once weekly , Taking Clobetasol Propionate 0.05 % Shampoo [...] Solution 1 mL Injection monthly , Taking Cymbalta 20 MG Capsule Delayed Release Particles 1 capsule Orally Once a day , Taking Dificid(Fidaxomicin) 200 MG Tablet 1 tablet Orally Twice a day , Taking Fluocinonide 0.05 % Solution 1 application Externally Once a day- as needed , Taking Folic Acid , Taking HYDROcodone-Acetaminophen 7.5-325 MG Tablet 1 tablet as needed Orally every 6 hrs , Taking Hydroxychloroquine Sulfate 400 MG Tablet 1 capsule Orally once daily , Taking Imuran(azaTHIOprine) 50 MG Tablet 3 tablets Orally once daily , Taking KlonoPIN(clonazePAM) 0.5 MG Tablet 1 tablet Orally Once a day prn F41.9, Taking Methocarbamol 750 MG Tablet 1 tablet Orally Q HS prn , Taking Metoprolol Tartrate 50 MG Tablet TAKE 2 TABLETS BY MOUTH TWICE A DAY WITH FOOD , Taking Nystatin 771961 UNIT/ML Suspension 4 mL Mouth/Throat Four times [...] Auto-injector as directed Subcutaneous weekly , Taking Vitamin D (Ergocalciferol) 1.25 MG (84741 UT) Capsule 1 capsule Orally once weekly , Taking Voltaren 1 % Gel as directed Externally as needed , Notes: Apply up to 4 g to each affected area up to 4 times daily, Discontinued Cephalexin 500 MG Tablet 2 tabs Orally bid , Discontinued Vancomycin HCl 125 MG Capsule 1 capsule Orally Once a day , Medication List reviewed and reconciled with the patient * Allergies: B actrim: GI upset, Codeine: jittery, Clindamycin: unknown, Latex: rash, Sulfa Antibiotics: swelling, Trimethoprim: unknown. Objective: * Vitals: H t: 67 in, Ht-cm: 170.18 cm. Assessment: * Assessment: 1. T ype 2 diabetes mellitus - E11.9 (Primary) 2 . E levated lactic acid level - R79.89 Plan: * Treatment: 2. E levated lactic acid level L AB: C DIFFICILE BY PCR L AB: COMPREHENSIVE METABOLIC PANEL L AB: LACTATE or LACTIC ACID (Collection Date & Time - 02/26/2025 03:27 PM) * Labs: * L ab: LACTATE or LACTIC ACID (Collection Date & Time - 02/26/2025 03:27 PM) * Follow Up: p rn * * Electronically signed by Malu De La Torre , CARISSA, MANUFACTURING TEST TECHNICIAN.FULLER BRUSH MAN.[id number] on 02/27/2025 at 12:35 PM EDT Sign off status: Completed Visit Status: C HK (Check Out) true * Provider: Abiola De La Torre (MILLI), FULLER BRUSH MAN Date: 1 Generated for Rosalee bustillo/Alfred/eTmattsmalberto on: 1 10:35 PM EDT History and Physical Notes * HPI (History of Present Illness) Category Sub-Category Detail Notes Category Not es General ER visit reviewed patient concerned about labs, concerned has c diff back A1c up
--- OUTSIDE RECORDS SUMMARY | 2025-02-27 04:40 | XMS_ITS ---
Author Organization [facility] in [place] Address [address] [place] [address] Care Team Providers Care Mechanic Marine Engine Name Role Phone BrittMaluGay Primary Care Provider [phone] Results Component Value Reference Range Notes CBC AUTO DIFF Reviewed date:02/27/2025 04:34:12 PM Interpretation: Performing Lab: Notes/Report: [facility] , White Blood Count 10.2 4.0-11.0 10 3/uL Red Blood Count 4.09 4.20-5.40 10 6/uL Hemoglobin 13.1 12.0-16.0 g/dL Hematocrit 39.5 36.0-48.0 % Mean Corpuscular Volume 96.6 81.0-99.0 fL Mean Corpuscular Hemoglobin 32.0 26.7-34.0 pg Mean Corpuscular HGB Conc 33.2 29.9-35.2 g/dL Red Cell Distribution Width 14.0 11.0-15.0 % Platelet Count 257 150-450 10 3/uL Mean Platelet Volume 10.7 9.5-13.5 fL Neutrophils Percent Auto 74.4 43.0-75.0 % Lymphocytes Percent Auto 17.2 20.5-60.0 % Monocytes Percent Auto 5.7 1.7-12.0 % Eosinophils Percent Auto 0.7 0.9-7.0 % Basophils Percent Auto 0.6 0.2-2.0 % Immature Granulocytes Pct Auto 1.4 0.0-0.5 % Neutrophils Absolute Auto 7.6 1.4-6.5 10 3/uL Lymphocytes Absolute Auto 1.8 1.2-3.8 10 3/uL Monocytes Absolute Auto 0.6 0.3-0.8 10 3/uL Eosinophils Absolute Auto 0.1 0.0-0.7 10 3/uL Basophils Absolute Auto 0.1 0.0-0.1 10 3/uL Immature Granulocytes Abs Auto 0.14 0.00-0.03 10 3/uL Performing Lab: see note ML - [facility] LB LACTATE or LACTIC ACID Reviewed date:02/27/2025 04:34:12 PM Interpretation: Performing Lab: Notes/Report: [facility] , Lactate/Lactic Acid 2.1 0.4-2.0 mmol/L RESULT S CALLED TO MICKY SMITH LPN Performing Lab: see note ML - [facility] LB REASON FOR VISIT labs Encounters Encounter Location Date Provider Diagnosis [facility] [address] [place] [address] 02/27/2025 Gay De La Torre Elevated lactic acid level R79.89 Assessments Encounter Date Diagnosis (ICD Code) Assessment Notes Treatment Notes Treatment Clinical Notes Section Notes 02/27/2025 Elevated lactic acid level (ICD-10 - R79.89) Plan Of Treatment Pending Test Test Name Order Date Comp. Metabolic Panel (14) 02/27/2025 Progress Notes * Ariadna PANIAGUA BDOB:1980 (44 yo F)Acc No.[id number]:02/27/2025 Patient: Abiola Ariadna SINGH :1980 A ge:44 Y S ex:Female Address:[address] [place] [phone] Subjective: * Chief Complaints: * L abs * Medical History: * Surgical History: * Hospitalization/Major Diagno stic Procedure: * Medications: Objective: * Vitals: * Physical Examination: Assessment: * Assessment: 1. E levated lactic acid level - R79.89 (Primary) Plan: * Treatment: * Procedure Codes: * true * Date: Generated for Printi ng/Faxing/eTransmitting on: 1 10:35 PM EDT
--- OUTSIDE RECORDS SUMMARY | 2025-02-27 11:17 | XMS_ITS ---
Author Organization [facility] in [place] Address [address] [place] [address] Care Team Providers Care Linux Network Administrator Name Role Phone Gay De La Torre Primary Care Provider Results Component Value Reference Range Notes LACTATE or LACTIC ACID Reviewed date:03/02/2025 12:05:01 PM Interpretation: Performing Lab: Notes/Report: [facility] , Lactate/Lactic Acid 2.1 0.4-2.0 mmol/L RESULT S CALLED TO Gay De La Torre Performing Lab: see note ML - [facility] LB REASON FOR VISIT critical lab Encounters Encounter Location Date Provider Diagnosis [facility] [address] [place] [address] 02/27/2025 Gay De La Torre Elevated lactic acid level R79.89 Assessments Encounter Date Diagnosis (ICD Code) Assessment Notes Treatment Notes Treatment Clinical Notes Section Notes 02/27/2025 Elevated lactic acid level (ICD-10 - R79.89) Plan Of Treatment No Information Progress Notes * Ariadna PANIAGUA BDOB:1980 (44 yo F)Acc No.[id number]:02/27/2025 Patient: Ariadna MOROE :1980 A ge:44 Y S ex:Female Address:[address] [place] [address] [place], [address] Subjective: * Chief Complaints: * C ritical lab * Medical History: * Surgical History: * Hospitalization/Major Diagno stic Procedure: * Medications: Objective: * Vitals: * Physical Examination: Assessment: * Assessment: 1. E levated lactic acid level - R79.89 (Primary) Plan: * Treatment: * Procedure Codes: * true * Date: Generated for Rosalee bustillo/Alfred/Joanna on: 10:36 PM EDT
--- OUTSIDE RECORDS SUMMARY | 2025-02-28 09:30 | XMS_ITS | Encounter Summary ---
Author Organization [facility] Healthcare Address [address] [place] [address] Care Team Providers Care Plater Hot Dip Name Role Phone Gay De La Torre MD Unavailable [phone] Reason for Visit * Reason Comments Consult Pilonidal cyst- Pt h ad a pilonidal cyst and sinus removal about 15 yrs ago- AVV did procedure. Everything went well and was doing fine until about 2-3 weeks ago. * Consultation (Routine) - Closed Specialty Diagnoses / Procedures Referred By Contac t Referred To Contact General Surgery Diagnoses Pilonidal cyst Procedures [place] OFFICE/OUTPATIENT [facility] 60 MINUTES Cynthia English MD [address] [facility] [address] [place] [address] Phone: tel: fax: Terence Blum MD [address] [place] [address] Phone: tel: fax: Referral ID Status Reason Start Date Expiration Date V isits Requested Visits Authorized [id number] Closed Specialty Services Required 02/14/2025 08/13/2025 1 1 Encounter Details Date Type Department Care Team (Late st Contact Info) Description 02/28/2025 9:30 AM EDT Consult [facility] [address] [place] [phone] Terence Blum MD [address] [place] [phone] Pilonidal abscess (Primary Dx); Pilonidal cyst Social History Tobacco Use Types Packs/Day Years [...] Sign Reading Time Taken Comments Blood Pressure 120/78 02/28/2025 9:25 AM EDT Pulse - - Temperature - - Respiratory Rate - - Oxygen Saturation - - Inhaled Oxygen Concentration - - Weight 132 kg (291 lb) 02/28/2025 9:25 AM EDT Height 170.2 cm (5' 7 ) 02/28/2025 9:25 AM EDT Body Mass Index 45.58 02/28/2025 9:25 AM EDT documented in this encounter Progress Notes * Terence Pacheco MD - 02/28/2025 9:30 AM EDT Images from the original note were not included. Ariadna B Siva 1980 Ariadna B hugo is a 44 y.o. female presents with chief complaint of Consult (Pilonidal cyst- Pt had a pilonidal cyst and sinus removal about 15 yrs ago- AVV did procedure. Everything went well andwas doing fine until about 2-3 weeks ago. ) HPI: The patient is a 44-year-old female who presents with a mass in the sacral region. Couple weeks ago, she noticed a mass which initially was small and then became larger. There has been no drainage. About 12 years ago, patient did undergo excision of a pilonidal cyst which I performed. Prior to that, she had had a couple incision and drainage procedures of the pilonidal area. The patient has developed multiple medical problems over the past 5 years. She has lupus as well asan immunoglobulin issue. She does receive IVIG regularly and is also on a biologic medication and also on prednisone. She follows with [facility] rheumatology and also with [facility] sawyer tology/oncology. She states she does have a lowered immune system. Patient did recently receive a pain management procedure in the lumbar region. SUBJECTIVE: MEDICATIONS: ALLERGIES Current Outpatient Medications Medication Instructions acetaminophen (Tylenol) 325 MG tablet Every 4 hours aspirin 81 mg, Daily belimumab (BENLYSTA) 200 mg, Weekly cephalexin (Keflex) 500 MG capsule Chlorhexidine Gluconate (Hibiclens) 4 % solution Use every day in shower from the neck down to affected areas. clindamycin (Cleocin T) 1 % lotion Apply thin later to affected areas on the thighs, once daily, 30day supply Clobetasol Propionate 0.05 % shampoo 1 application to the scalp in the shower topically 3-4 times aweek diclofenac sodium 1 % gel ergocalciferol (VITAMIN D2) 50,000 Units, Weekly fluocinonide [...] ibuprofen 200 MG tablet Every 8 hours immune globulin, human, (Gammagard) infusion Infuse into a venous catheter KlonoPIN 0.5 MG tablet 1 tablet Orally Once a day prn for 30 days metoprolol tartrate (LOPRESSOR) 100 mg, 2 times daily nystatin (Mycostatin) cream Apply to left armpit BID until clear pantoprazole (PROTONIX) 20 mg, Daily before breakfast predniSONE 10 mg, Every 24 hours tacrolimus (Protopic) 0.1 % ointment Apply to affected area on forehead bid prn flares, hold if clear tretinoin (Retin-A) 0.025 % cream Apply to face, once daily at evening/night time, 30 day supply tretinoin (Retin-A) 0.05 % cream Apply to face, once daily at evening/night time, 30 day supply Triamcinolone Acetonide 0.025 % lotion 1 application Allergies Allergen Reactions Codeine Other Reaction(s): Other: [...] just thinks she just experienced side effects. PAST MEDICAL HISTORY: SOCIAL HISTORY SURGICAL HISTORY: Past Medical History: Diagnosis Date Anxiety Cervical lymphadenopathy Chronic laryngopharyngitis COVID-19 vaccine administered x 2 ([employer]) Difficulty walking Fatigue Fibromyalgia, primary GERD (gastroesophageal reflux disease) History of removal of cyst 2013 tailbone x2 HTN (hypertension) Hx of abnormal cervical Pap smear Hyperlipidemia 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HCC) Insulin resistance Laryngopharyngeal reflux disease Lupus Nonscarring hair loss, unspecified Nontoxic goiter, unspecified Nontoxic single thyroid nodule Numbness Oral lesion Oral thrush Prediabetes Sleep apnea Tachycardia Vitamin D deficiency, unspecified Weakness of limb Social History Tobacco Use Smoking status: Every Day Current packs/day: 1.00 Average packs/day: 1 pack/day for 29.8 years (29.8 ttl pk-yrs) Types: Cigarettes Start date: 05/24/1995 Smokeless tobacco: Never Tobacco comments: Current smoker, everyday, 11-20 cigarettes/day Vaping Use Vaping status: Never Used Substance Use Topics Alcohol use: Never Comment: Caffeine intake : > 4 cups per day Drug use: Never Past Surgical History: Procedure Laterality Date CYST REMOVAL DILATION AND CURETTAGE LYMPH NODE BIOPSY 2020 OTHER SURGICAL HISTORY cervical cryo VAGINAL DELIVERY REVIEW OF SYMPTOMS: Review of Systems Constitutional: Negative for fever. Respiratory: Positive for shortness of breath. Cardiovascular: Negative for chest pain. Musculoskeletal: Positive for back pain. Skin: Positive for wound. Neurological: Negative for syncope. OBJECTIVE: Visit Vitals BP 120/78 Ht 5' 7 Wt 291 lb BMI 45.58 kg/m?? OB Status Having periods Smoking Status Every Day BSA 2.5 m?? Physical Exam Constitutional: General: She is not in acute distress. Cardiovascular: Rate and Rhythm: Normal rate and regular rhythm. Pulmonary: Breath sounds: Normal breath sounds. Abdominal: Palpations: Abdomen is soft. Skin: Comments: In the upper sacral region, there is an approximately 1 x 3 cm raised, erythematous mass.Currently, no open areas or drainage are noted. The patient does have multiple incisional scar from her previous pilonidal procedures. Neurological: Mental Status: She is alert. ASSESSMENT AND PLAN: Assessment/Plan Diagnoses and all orders for this visit: Pilonidal abscess Pilonidal cyst - Ambulatory referral to General Surgery The site has been enlarging and concerns the patient. Plan therefore will be to perform incision and drainage of the site. The patient would prefer this under local anesthesia as she does have problems with other types of anesthesia. The procedure, benefits, risks include risks of bleeding, infection, wound healing problems discussed. The patient states that with all her immune issues, she does know that it will take a while to heal any wound. She states that her can do her dressing changes at documented in this encounter Plan of Treatment Upcoming Encounters Date Type Department Care Team (Late st Contact Info) Description 03/19/2025 10:20 AM EDT Office Visit [facility] [address] [facility] [address] [place] [phone] Mary Grace Mejias MD [address] [facility] [address] [place] [address] 03/23/2025 11:30 AM EDT Office Visit [facility] [address] [phone] Terence Blum MD [address] [place] [address] [address] [place] [address] 07/25/2025 11:00 AM EST Office Visit [facility] [address] [place] [address] Cynthia English MD [address] [place] [address] documented as of this encounter Visit Diagnoses Diagnosis Pilonidal abscess- Primary Pilonidal cyst with abscess Pilonidal cyst documented in this encounter Care Teams Plater Hot Dip Relationship Specialty Start Date End Date Gay De La Torre MD [facility] [place] [address] Referring Physician Family Medicine 07/18/24 documented as of this encounter
--- OUTSIDE RECORDS SUMMARY | 2025-03-05 10:15 | XMS_ITS ---
Author Organization [facility] Address [address] [place] [address] Care Team Providers Care Patient Carrier Name Role Phone BrittGay Primary Care Provider [phone] Allergies Allergen (clinical drug ingredient) Drug/Non Drug [...] Drug Allergy A ctive REASON FOR VISIT CALL [phone] to go over labs Medications Medication SIG (Take, Route, Frequency, Duration) Notes Start Date End Date Status Voltaren 1 % as directed Externally as needed 02/01/2024 Active Triamcinolone Acetonide 0.025 % APPLY TO AFFECTED AREA TWICE DAILY NEEDED FOR 30 DAYS External; Duration: 30 Days Active Vitamin D (Ergocalciferol) 1.25 MG (56945 UT) 1 capsule Orally once weekly; Duration: 28 days Active Pregabalin 75 MG 3 capsule Orally once daily- as needed; Duration: 30 days PRN Active Pantoprazole Sodium 40 MG 1 tablet 1/2 t o 1 hour before morning meal Orally Once a day; Duration: 90 days 07/27/2024 Active predniSONE 10 MG 1 tablet Orally once daily; Duration: 30 days Active Folic Acid Active Metoprolol Tartrate 50 MG TAKE 2 TABLETS BY MOUTH TWICE A DAY WITH FOOD; Duration: 90 days Active Mounjaro 2.5 MG/0.5ML as directed Subcutaneous weekly; Duration: 28 days call for next dose 02/26/2025 Active Hydroxychloroquine Sulfate 400 MG 1 capsule Orally once daily; Duration: 30 days Active KlonoPIN 0.5 MG 1 tablet Orally Once a day prn; Duration: 30 days F41.9 12/07/2024 Active Fluocinonide 0.05 % 1 application Externally Once a day- as needed; Duration: 30 days Active Cyanocobalamin 1000 MCG/ML 1 mL Injectio n monthly 12/28/2023 Active Cymbalta 20 MG 1 capsule Orally Once a day; Duration: 30 days 02/01/2024 Active Clobetasol Propionate 0.05 % APPLY TO SCALP IN SHOWER 3 TO 4 TIMES A WEEK External; Duration: 30 Days Active Benlysta 200 MG/ML 200mg Subcutaneous once weekly Active Social History Tobacco Use: Social History [...] User Modera te cigarette smoker (10-19 cigs/day) AUDIT-C (Standard) Question Answer Notes Did you have a drink containing alcohol in the p ast year? No Points 0 Interpretation Negative Encounters Encounter Location Date Provider Diagnosis [id number] [place] [address] 03/05/2025 Gay Britt Pilonidal cyst with abscess L05.01 Assessments Encounter Date Diagnosis (ICD Code) Assessment Notes Treatment Notes Treatment Clinical Notes Section Notes 03/05/2025 Pilonidal cyst with abscess (ICD-10 - L05.01) fu Blum, if needs ID referral Jennifer Shultz on Keflex currently continue monitor Plan Of Treatment Treatment Notes Assessment Notes Pilonidal cyst with abscess fu Blum, if needs ID referral Jennifer Shultz on Keflex currently continue monitor Next Appt Details Follow Up: prn, Reason: Progress Notes * Ariadna PANIAGUA BDOB:1980 (44 yo F)Acc No.[id number]:03/05/2025 TeleMed via Doxy Patient: Ariadna MOORE Provider: Abiola De La Torre ([facility]), CONTROL CLERK HEAD :1980 A ge:44 Y S ex:Female Date:03/05/2025 Address:[address] [place] [address] [place], [id number] Check In:01:34 PM ESTCheck O ut:02:58 PM EST Subjective: * Chief Complaints: * 1 . CALL [phone] to go over labs. * HPI: G eneral: lactic acid reviewed patient is in communication with Dr Blum, surgeon , office re culture results pilonidal cyst I and D hoping to be treated with abx that would cover both breast bx results from last year and current cyst results thinks only IV or IM had breast culture done last year, continues with green drainage from nipple saw Dr Baer, recommended milk duct removal not abx at that time if needs to revisit ID wants to see Colleen Hamilton, Jennifer martinez packed, doing it feels better and worse, on and off stopped trulicity on own, will resart as mounjaro not approved. * Active Problem List I10 Hypertension Modified [...] On:08/09/2023U Status:confirmed D72.829 Elevated WBC count Modified On:08/12/2024W/U Status:confirmed I73.00 Raynauds phenomenon Modified On:02/01/2024/U Status:confirmed R73.03 Pre-diabetes Modified On:04/07/2024/U Status:confirmed K21.9 GERD (gastroesophage al reflux disease) Modified On:07/27/2024/U Status:confirmed E04.1 Thyroid nodule Modified On:09/07/2024/U Status:confirmed K76.0 Fatty liver Modified On:01/01/2025/U Status:confirmed E11.9 Type 2 diabetes vashti itus Modified On:02/26/2025/U Status:confirmed * Medical History: C hronic fatigue, Anxiety, Cervical lymphadenopathy, GERD (gastroesophageal reflux disease), Hypercholesterolemia, Hyperlipidemia, Lupus, Tachycardia, Prediabetes, Hypertension. * Surgical History: l ymph node biopsy 2020, Pynonidal Cyst 02/2025. * Hospitalization/Major Diagno stic Procedure: D enies Past Hospitalization. * Family History: F ather: , Stomach Cancer, diagnosed with Cancer. M other: alive, crohns disease, thyroid disease. B rother(s): Lung Issue- lung surgery when 17. S ister(s): alive. S on(s): alive, Lung Issue- lung surgery when 17. D biller(s): alive. 1 sister(s) . 1 son(s) , [...] User M oderate cigarette smoker (10-19 cigs/day) D rug/Alcohol: A SAMANTHA-C (Standard) D id you have a drink containing alcohol in the past year? N o P oints 0 I nterpretation N egative * Medications: T aking Benlysta(Belimumab) 200 MG/ML Solution Prefilled Syringe 200mg Subcutaneous once weekly , Taking Clobetasol Propionate 0.05 % Shampoo APPLY TO SCALP IN SHOWER 3 TO 4 TIMES A WEEK External , Taking Cyanocobalamin 1000 MCG/ML Solution 1 mL Injection monthly , Taking Cymbalta 20 MG Capsule Delayed Release Particles 1 capsule Orally Once a day , Taking Fluocinonide 0.05 % Solution 1 application Externally Once a day- as needed , Taking Folic Acid , Taking Hydroxychloroquine Sulfate 400 MG Tablet 1 capsule Orally once daily , Taking KlonoPIN(clonazePAM) 0.5 MG Tablet 1 tablet Orally Once a day prn F41.9, Taking Metoprolol Tartrate 50 MG Tablet TAKE 2 TABLETS BY MOUTH TWICE A DAY WITH FOOD , Taking Mounjaro(Tirzepatide) 2.5 MG/0.5ML Solution Auto-injector as directed Subcutaneous weekly , Notes to Pharmacist: call for next dose, Taking Pantoprazole Sodium 40 MG Tablet Delayed Release 1 tablet 1/2 to 1 hour before morning meal Orally Once a day , Taking predniSONE 10 MG Tablet 1 tablet Orally once daily , Taking Pregabalin 75 MG Capsule 3 capsule Orally once daily- as needed , Notes to Pharmacist: PRN, Taking Triamcinolone Acetonide 0.025 % Lotion APPLY TO AFFECTED AREA TWICE DAILY NEEDED FOR 30 DAYS External , Taking Vitamin D (Ergocalciferol) 1.25 MG (00769 UT) Capsule 1 capsule Orally once weekly , Taking Voltaren 1 % Gel as directed Externally as needed , Notes: Apply up to 4 g to each affected area up to 4 times daily, Discontinued Albuterol Sulfate HFA 108 (90 Base) MCG/ACT Aerosol Solution 2 puff as needed Inhalation every 4 hrs , Discontinued amLODIPine Besylate 5 MG Tablet 1 tablet Orally Once a day , Discontinued Clotrimazole 10 MG Bk 1 bk Mouth/Throat Five times a day , Notes: 10 mg dissolved slowly 5 times daily for 7 to 14 days, Discontinued Clotrimazole 10 MG Bk 1 bk while on immunosuppressive medicine Mouth/Throat Three times a day , Discontinued Dificid(Fidaxomicin) 200 MG Tablet 1 tablet Orally Twice a day , Discontinued HYDROcodone-Acetaminophen 7.5-325 MG Tablet 1 tablet as needed Orally every 6 hrs , Discontinued Imuran(azaTHIOprine) 50 MG Tablet 3 tablets Orally once daily , Discontinued Methocarbamol 750 MG Tablet 1 tablet Orally Q HS prn , Discontinued Nystatin 907373 UNIT/ML Suspension 4 mL Mouth/Throat Four times a day , Medication List reviewed and reconciled with the patient * Allergies: B actrim: GI upset, Codeine: jittery, Clindamycin: unknown, Latex: rash, Sulfa Antibiotics: swelling, Trimethoprim: unknown. Objective: * Vitals: Assessment: * Assessment: 1. P ilonidal cyst with abscess - L05.01 (Primary) Plan: * Treatment: * Follow Up: p rn * * Electronically signed by Malu De La Torre , GRAB SETTER, DENTAL COORDINATOR.CONTROL CLERK HEAD.[id number] on 03/06/2025 at 02:51 PM EDT Sign off status: Completed Visit Status: C HK (Check Out) true * Provider: Abiola De La Torre ([facility]), CONTROL CLERK HEAD Date: 1 Generated for Rosalee bustillo/Alfred/eTmattsmitting on: 10:34 PM EDT History and Physical Notes * HPI (History of Present Illness) Category Sub-Category Detail Notes Category Not es General lactic acid reviewed patient is in communication with Dr Blum, surgeon , office re culture results pilonidal cyst I and D hoping to be treated with abx that would cover both breast bx results from last year and current cyst results thinks only IV or IM had breast culture done last year, continues with green drainage from nipple saw Dr Baer, recommended milk duct removal not abx at that time if needs to revisit ID wants to see Jennifer Shultz packed, doing it feels better and worse, on and off stopped trulicity on own, will resart as vj not approved
--- OUTSIDE RECORDS SUMMARY | 2025-03-05 10:37 | XMS_ITS ---
Author Organization The [facility] in [place] Address [address] [place] [address] Care Team Providers Care Insurance Claim Approver Name Role Phone Gay De La Torre Primary Care Provider REASON FOR VISIT Mounjaro Medications Medication SIG (Take, Route, Fr equency, Duration) Notes Start Date End Date Status Trulicity 0.75 MG/0.5ML as directed Subc utaneous weekly; Duration: 28 days 03/05/2025 Active Encounters Encounter Location Date Provider Diagnosis [facility] [address] [place] [address] 03/05/2025 Gay De La Torre Plan Of Treatment Medication Medication Name Sig Start Date Stop Date Notes Trulicity 0.75 MG/0.5ML as directed Subc utaneous weekly; Duration: 28 days 03/05/2025 Progress Notes * Ariadan PANIAGUA BDOB:1980 (44 yo F)Acc No.[id number]:03/05/2025 Patient: Abiola Ariadna SINGH :1980 A ge:44 Y S ex:Female Address:[address] [place] [address] [place], [address] * Refills Start Trulicity Solution Auto-injector, 0.75 MG/0.5ML, Subcutaneous, 4, as directed, weekly, 28 days, Refills=1 Subjective: * Chief Complaints: * M ounjaro * Medical History: * Surgical History: * Hospitalization/Major Diagno stic Procedure: * Medications: Objective: * Vitals: * Physical Examination: Assessment: Plan: * Treatment: * Procedure Codes: * true * Date: Generated for Rosalee Nolasco/Joanna on: 10:34 PM EDT
--- OUTSIDE RECORDS SUMMARY | 2025-03-08 04:30 | XMS_ITS ---
Author Organization The [facility] in [place] Address [address] [place] [address] Care Team Providers Care Engineering Lecturer Name Role Phone Gay De La Torre [...] trimethoprim Trimethoprim unknown Drug Allergy A ctive Reason For Referral Diagnosis 1 Elevated lactic acid level (R79.89) Diagnosis 2 Pilonidal abscess (L 05.01) Referral Organization [facility] Referring Provider First Name Gay Referring Provider Last Name Britt Referring Provider Speciality Family Med icine Referred Provider Jazmyn Key Referred Provider Specialty Internal Med icine Referral Priority Routine REASON FOR VISIT [facility] follow up, labs, Patient is co pelvis pains Medications Medication SIG (Take, Route, Frequency, Duration) Notes Start Date End Date Status Voltaren 1 % as directed Externally as needed 02/01/2024 Active Vitamin D (Ergocalciferol) 1.25 MG (12021 UT) 1 capsule Orally once weekly; Duration: 28 days Active Trulicity 0.75 MG/0.5ML as directed Subcutaneous weekly; Duration: 28 days 03/05/2025 Active Triamcinolone Acetonide 0.025 % APPLY TO AFFECTED AREA TWICE DAILY NEEDED FOR 30 DAYS External; Duration: 30 Days Active Nystatin 187871 UNIT/ML 4 mL Mouth/Throa t Four times a day; Duration: 7 days Active Metoprolol Tartrate 50 MG TAKE 2 TABLETS BY MOUTH TWICE A DAY WITH FOOD; Duration: 90 days Active Pantoprazole Sodium 40 MG 1 tablet 1/2 t o 1 hour before morning meal Orally Once a day; Duration: 90 days 07/27/2024 Active Mounjaro 2.5 MG/0.5ML as directed Subcutaneous weekly; Duration: 28 days call for next dose 02/26/2025 Active Pregabalin 75 MG 3 capsule Orally once daily- as needed; Duration: 30 days PRN Active predniSONE 10 MG 1 tablet Orally once daily; Duration: 30 days Active Hydroxychloroquine Sulfate 400 MG 1 capsule Orally once daily; Duration: 30 days Active Folic Acid Active KlonoPIN 0.5 MG 1 tablet Orally Once a day prn; Duration: 30 days F41.9 12/07/2024 Active Cymbalta 20 MG 1 capsule Orally Once a day; Duration: 30 days 02/01/2024 Active Fluocinonide 0.05 % 1 application Externally Once a day- as needed; Duration: 30 days Active Cyanocobalamin 1000 MCG/ML 1 mL Injectio n monthly 12/28/2023 Active Clobetasol Propionate 0.05 % APPLY TO [...] ast year? No Points 0 Interpretation Negative Vital Signs Weight 286.8 lbs 03/08/2025 Height 67 in 03/08/2025 Blood pressure systolic 130 mm Hg 03/08/20 25 Blood pressure diastolic 78 mm Hg 025 BMI 44.91 kg/m2 03/08/2025 Encounters Encounter Location Date Provider Diagnosis [facility] [address] [place] [address] 03/08/2025 Gay De La Torre Elevated lactic acid level R79.89 ; Pilonidal abscess L05.01 and Type 2 diabetes mellitus E11.9 Assessments Encounter Date Diagnosis (ICD Code) Assessment Notes Treatment Notes Treatment Clinical Notes Section Notes 03/08/2025 Elevated lactic acid level (ICD-10 - R79.89) patient requesting referral to different ID than saw in past hx breast infection, ID wanted her to have milk ducts removed instead of tx with abx she did not have this done, continues to complain of green discharge from nipple recent ID for pilonidal abcess currently on ceftazidine IV packing abcess as of note stopped DM2 med trulicity on own, last A1c not great, recently restarted trulicity 03/08/2025 Pilonidal abscess (ICD-10 - L05.01) 03/08/2025 Type 2 diabetes mellitus (ICD-10 - E11.9) restart trulicity Plan Of Treatment Medication Medication Name Sig Start Date Stop Date Notes Nystatin 745452 UNIT/ML 4 mL Mouth/Throa t Four times a day; Duration: 7 days Treatment Notes Assessment Notes Elevated lactic acid level patient requesting referral to different ID than saw in past hx breast infection, ID wanted her to have milk ducts removed instead of tx with abx she did not have this done, continues to complain of green discharge from nipple recent ID for pilonidal abcess currently on ceftazidine IV packing abcess as of note stopped DM2 med trulicity on own, last A1c not great, recently restarted trulicity Type 2 diabetes mellitus restart trulici ty Pending Test Test Name Order Date UA (URINALYSIS, COMPLETE) 03/08/2025 Urine Culture 03/08/2025 Referrals Referral Date Details 03/08/2025 03/08/2025, Colleen Castro Next Appt Details Follow Up: prn, Reason: Progress Notes * Ariadna PANIAGUA BDOB:1980 (44 yo F)Acc No.[id number]:03/08/2025 UNLOCKED PROGRESS NOTE Progress Note Patient: Ariadna MOORE Provider: Abiola De La Torre ([facility]), CIGARETTE MACHINE FILLER :1980 A ge:44 Y S ex:Female Date:03/08/2025 Address:[address] [place] [address] [address] [id number] Check In:08:09 AM ESTCheck O ut:08:41 AM EST Subjective: * Chief Complaints: * 1 . [facility] follow up, labs. 2. Patient is co pelvis pains. * HPI: G eneral: has been getting Ceftizidime outpt IV packing fu surgeon end Feb ID referral - new doctor urine culture results- yeast? had some sx of vag yeast infection but cleared up now wants repeat UA CS Difficid? repeat nystatin oral. * ROS: G eneral/Constitutional: Fever d enies. H eadache d enies. W eight loss?denies. O phthalmologic: Discharge d enies. E ye Pain d enies. I tching and redness d enies. E NT: Nasal discharge d enies. N shelby congestion d enies.?Sore throat d enies. C ardiovascular: Chest tightness/ heavy pressure d enies. R apid heart rate d enies. S welling of extremities d enies. C hest pain d enies. ? R espiratory: Productive cough d enies. C hest pain d enies. C ough d enies. S hortness of breath d enies. W heezing d enies. ? G astrointestinal: Abdominal pain d enies. C onstipation d enies. D ecreased appetite d enies. D iarrhea d enies. N ausea d enies. V omiting?denies. G enitourinary: Urinary incontinence d enies. P ainful urination d enies. M usculoskeletal: Patient complaining of s ome anterior pelvic pain just started today, thinks may go away. B ack pain d enies. N alexandra pain d enies. M uscle aches d enies. S kin: Rash d enies. S kin lesion(s) I D to pilonidal cyst, packed with dressing now. * Medical History: C hronic fatigue, Anxiety, Cervical lymphadenopathy, GERD (gastroesophageal reflux disease), Hypercholesterolemia, Hyperlipidemia, Lupus, Tachycardia, Prediabetes, Hypertension. * Surgical History: l ymph node biopsy 2020, Pynonidal Cyst 02/2025. * Family History: F ather: , Stomach [...] FOR 30 DAYS External , Taking Trulicity(Dulaglutide) 0.75 MG/0.5ML Solution Auto-injector as directed Subcutaneous weekly , Taking Vitamin D (Ergocalciferol) 1.25 MG (16309 UT) Capsule 1 capsule Orally once weekly , Taking Voltaren 1 % Gel as directed Externally as needed , Notes: Apply up to 4 g to each affected area up to 4 times daily, Medication List reviewed and reconciled with the patient * Allergies: B actrim: GI upset, Codeine: jittery, Clindamycin: unknown, Latex: rash, Sulfa Antibiotics: swelling, Trimethoprim: unknown. Objective: * Vitals: W t:286.8lbs, Ht: 67 in, BP:130/78mm Hg, BMI:44.91Index, Ht-cm: 170.18 cm, Wt-k.09 kg. * Examination: G eneral Examinations: GENERAL APPEARANCE: a lert and oriented, in no acute distress, morbidly obese. EYES: c onjunctiva normal, sclera non-icteric. NOSE: n ormal external appearance. LUNGS: c lear to auscultation bilaterally. CARDIO: r egular rate and rhythm, S1, S2 normal. BACK: d ressing to tailbone area intact. MUSCULOSKELETAL: d ecreased ROM due to body habitus. SKIN: s ee back. Assessment: * Assessment: 1. E levated lactic acid level - R79.89 (Primary) 2 . P ilonidal abscess - L05.01 3 . T ype 2 diabetes mellitus - E11.9 Plan: * Treatment: 2. P ilonidal abscess Referral To:[facility] Reason: 3. T ype 2 diabetes mellitus Refill Nystatin Suspension, 618292 UNIT/ML, 4 mL, Mouth/Throat, Four times a day, 7 days, 112 ML, Refills 0. L AB: UA (URINALYSIS, COMPLETE) L AB: Urine Culture Notes: restart trulicity * Preventive Medicine: Screenings/Counseling: B DC ACTION PLAN Above Normal BMI Follow-up D ietary management education, guidance, and counseling T OBACCO ACTION PLAN Patient counselled on the dangers of tobacco use and urged to quit. . * Follow Up: p rn * * Electronic signature of Kristen Moreno , ICU NURSE, SALES ENGINEER ACCOUNT MANAGER.CIGARETTE MACHINE FILLER.[id number] on 03/09/2025 at 10:36 PM EDT Sign off status: Pending Visit Status: C HK (Check Out) * Provider: Abiola De La Torre ([facility]), CIGARETTE MACHINE FILLER Date: 1 Generated for Printi ng/Faxing/eTransmitting on: 1 10:36 PM EDT History and Physical Notes * HPI (History of Present Illness) Category Sub-Category Detail Notes Category Not es General has been getting Ceftizidime outpt IV packing fu surgeon end Feb ID referral - new doctor urine culture results- yeast? had some sx of vag yeast infection but cleared up now wants repeat UA CS Difficid? repeat nystatin oral Examination Category Sub-Category Detail Notes Category Not es General Examinations GENERAL APPEARANCE: alert a nd oriented, in no acute distress, morbidly obese EYES: conjunctiva normal, sclera non-icteric EARS: NOSE: normal external appe arance THROAT: CARDIO: regular rate and rhy thm, S1, S2 normal LUNGS: clear to auscultatio n bilaterally ABDOMEN: SKIN: see back BACK: dressing to tailbone area intact MUSCULOSKELETAL: decreased ROM due to body habitus LYMPH NODES: Consultation Request Notes Referral Date Referring Provider Referred Provider Not es 03/08/2025 Gay De La Torre Nancy
[2025-03-09 22:22] VITALS: BP 149/96; PULSE 94; TEMP 36.8; O2SAT 98; BMI 43.9
--- OUTSIDE RECORDS SUMMARY | 2025-03-09 22:34 | XMS_ITS | Encounter Summary ---
Author Organization [facility] Address [address] [place] [address] Care Team Providers Care Cook Candy Name Role Phone Gay De La Torre MD Unavailable [phone] Encounter Details Date Type Department Care Team (Latest Contact Info) Description 02/27/2025 Travel Social History Tobacco Use Types Packs/Day [...] 03/19/2025 10:20 AM EDT Office Visit [facility] [address] [facility] 900 [place] [address] Mary Grace Mejias MD 112 [facility] 130 [place] [address] 03/23/2025 11:30 AM EDT Office Visit [facility] 703 [facility] 150 [place] [address] Terence Blum MD 703 [facility] 150 [place] [address] 07/25/2025 11:00 AM EST Office Visit [facility] [address] [place] [address] Cynthia English MD [address] [place] [address] documented as of this encounter Visit Diagnoses Not on filedocumented in this encounter Care Teams Cook Candy Relationship Specialty Start Date End Date Gay De La Torre MD [address] [place] [address] Referring Physician Family Medicine 07/18/24 documented as of this encounter
--- OUTSIDE RECORDS SUMMARY | 2025-03-09 22:34 | XMS_ITS | Encounter Summary ---
Author Organization [facility] Address [address] [facility] [place] [address] Care Team Providers Care Hydraulic Lift Driver Name Role Phone Gay De La Torre MD Unavailable [phone] Encounter Details Date Type Department Care Team (Latest Contact Info) Description 03/06/2025 Travel Social History Tobacco Use Types Packs/Day [...] 03/19/2025 10:20 AM EDT Office Visit [facility] [place] [facility] [address] [facility] 900 [place] [address] Mary Grace Mejias MD 112 [facility] 130 [place] [address] 03/23/2025 11:30 AM EDT Office Visit [facility] 703 [facility] 150 [place] [address] Terence Blum MD 703 [facility] 150 [place] [address] 07/25/2025 11:00 AM EST Office Visit [facility] [address] [place] [address] Cynthia English MD [address] [place] [address] documented as of this encounter Visit Diagnoses Not on filedocumented in this encounter Care Teams Hydraulic Lift Driver Relationship Specialty Start Date End Date Gay De La Torre MD [address] [place] [address] Referring Physician Family Medicine 07/18/24 documented as of this encounter
--- OUTSIDE RECORDS SUMMARY | 2025-03-09 22:34 | XMS_ITS | Encounter Summary ---
Author Organization [facility] Address [address] [facility] [place] [address] Care Team Providers Care Call Center Trainer Name Role Phone Gay De La Torre MD Unavailable [phone] Encounter Details Date Type Department Care [...] 03/19/2025 10:20 AM EDT Office Visit [facility] [address] [facility] 900 [place] [address] Mary Grace Mejias MD 112 [facility] 130 [place] [address] 03/23/2025 11:30 AM EDT Office Visit [facility] 703 [facility] 150 [place] [address] Terence Blum MD 703 [facility] 150 [place] [address] 07/25/2025 11:00 AM EST Office Visit [facility] [address] [place] [address] Cynthia English MD [address] [place] [address] documented as of this encounter Visit Diagnoses Not on filedocumented in this encounter Care Teams Call Center Trainer Relationship Specialty Start Date End Date Gay De La Torre MD [address] [place] [address] Referring Physician Family Medicine 07/18/24 documented as of this encounter
--- OUTSIDE RECORDS SUMMARY | 2025-03-09 22:34 | XMS_ITS | Encounter Summary ---
Author Organization [facility] Address [address] [place] [address] Care Team Providers Care It Architecture Consultant Name Role Phone Gay De La Torre(Historical) PARLIAMENTARY COUNSEL.ANIMAL PATHOLOGIST Primary Care Provider Unavailable Manuel Klein MD Unavailable [phone] Manuel Klein MD Primary Care Provider +- Manuel Klein MD Unavailable [phone] Source Comments In the event this information is protected by the Federal Confidentiality of Alcohol and Drug AbusePatient Records regulations: The Federal rules restrict any use of the information to criminally investigate or prosecute any alcohol or drug abuse patient.[facility] Encounter Details Date Type Department Care Team (Late st Contact Info) Description 08/13/2021 Patient Msg Rheumatology [address] [place] [address] Provider, Ccf Please Review Changes [...] ot on file 08/09/2020 Data from: https://www.neighborhoodatlas.medicine.[facility]/. Last address used for calculation Not on [...] Department Care Team (Latest Contact Info) Description 03/21/2025 9:00 AM EDT Office Visit [facility] [address] [place] [address] [place] [address] 4 week follow up IVIG - pt to see MASON for this appt per Fara 03/21/2025 9:20 AM EDT Visit (SP) Office Hematology/Oncology [address] [place] [address] [place] [address] Jose Cho MD [address] [place] [address] 4 week follow up IVIG - pt to see MASON for this appt per Fara 03/21/2025 9:40 AM EDT Infusion Center Hematology/Oncology [address] [place] [address] Gabbi, Chair [address] [place] [address] 4 week follow up IVIG - pt to see MASON for this appt per Fara 04/05/2025 2:00 PM EST Infusion Center Hematology/Oncology [address] [place] [address] BENLYSTA - 05/03/2025 2:00 PM EST Infusion Center Hematology/Oncology [address] [place] [address] BENLYSTA - documented as of this encounter Visit Diagnoses Not on filedocumented in this encounter Care Teams It Architecture Consultant Relationship Specialty Start Date End Date Gay De La Torre(Historical), PARLIAMENTARY COUNSEL.ANIMAL PATHOLOGIST PCP - General Family Medicine 10/24/21 02/26/22 Manuel Klein MD PCP - General Family Medicine 02/27/22 Manuel Klein MD Referring Family Medicine 02/12/22 Manuel Klein MD [address] [place] [facility] [place] [address] Referring Family Medicine 07/06/24 documented as of this encounter
--- OUTSIDE RECORDS SUMMARY | 2025-03-09 22:34 | XMS_ITS | Encounter Summary ---
Author Organization [facility] Address [address] [place] [address] Care Team Providers Care Legal Manager Name Role Phone Manuel Klein MD Unavailable [phone] Manuel Klein MD Primary Care Provider +-4 Manuel Klein MD Unavailable Source Comments In the event this information is protected by the Federal Confidentiality of Alcohol and Drug AbusePatient Records regulations: The Federal rules restrict any use of the information to criminally investigate or prosecute any alcohol or drug abuse patient.[facility] Encounter Details Date Type Department Care Team (Late st Contact Info) Description 03/26/2022 Patient Msg Allergy [address] [place] [phone] Misty Nelson MD [facility]2 [place] [address] lab results Social History Tobacco [...] N ot on file 08/09/2020 Data from: https://www.neighborhoodatlas.medicine.[facility]/. Last address used [...] Description 03/21/2025 9:00 AM EDT Office Visit [facility] [address] [place] [address] [place] [address] 4 week follow up IVIG - pt to see MASON for this appt per Fara 03/21/2025 9:20 AM EDT Visit (SP) Office Hematology/Oncology [address] [place] [address] Jose Cho MD [address] [place] [address] 4 week follow up IVIG - pt to see MASON for this appt per Fara 03/21/2025 9:40 AM EDT Infusion Center Hematology/Oncology [address] [place] [address] Gabbi, Chair [address] [place] [address] 4 week follow up IVIG - pt to see MASON for this appt per Fara 04/05/2025 2:00 PM EST Infusion Center Hematology/Oncology [address] [place] [address] BENLYSTA - 05/03/2025 2:00 PM [facility] Infusion Center Hematology/Oncology [address] [facility] [place] [address] BENLYSTA - documented as of this encounter Visit Diagnoses Not on filedocumented in this encounter Care Teams Legal Manager Relationship Specialty Start Date End Date Manuel Klein MD PCP - General Family Medicine 02/27/22 Manuel Klein MD Referring Family Medicine 02/12/22 Manuel Klein MD [address] [facility] [place] [address] Referring Family Medicine 07/06/24 documented as of this encounter
--- OUTSIDE RECORDS SUMMARY | 2025-03-09 22:34 | XMS_ITS | Encounter Summary ---
Author Organization [facility] Address [address] [place] [address] Care Team Providers Care Meat Selector Name Role Phone Britt Gay(Historical) LINUX SUPPORT ENGINEER.ENERGY SALES CONSULTANT Primary Care Provider Unavailable Manuel Klein MD Unavailable [phone] Manuel Klein MD Primary Care Provider +-4 Manuel Klein MD Unavailable [phone] Source Comments In the event this information is protected by the Federal Confidentiality of Alcohol and Drug AbusePatient Records regulations: The Federal rules restrict any use of the information to criminally investigate or prosecute any alcohol or drug abuse patient.[facility] Encounter Details Date Type Department Care Team (Late st Contact Info) Description 05/04/2021 Get Medical Advice Rheumatology 5706 [facility] [place], [place] [phone] Sandra Park MD [address]25 [place], [place] [phone] Lupus diagnosis from dermatology Social History Tobacco [...] file 08/09/2020 Data from: https://www.neighborhoodatlas.medicine.[facility]/. Last address [...] Description 03/21/2025 9:00 AM EDT Office Visit [facility] [address] [place] [address] 4 week follow up IVIG - pt to see MASON for this appt per Fara 03/21/2025 9:20 AM EDT Visit (SP) Office Hematology/Oncology [address] [place] [address] Jose Cho MD [address] [place] [address] 4 week follow up IVIG - pt to see MASON for this appt per Fara 03/21/2025 9:40 AM EDT Infusion Center Hematology/Oncology [address] [place] [address] Gabbi, Chair [address] [place] [address] 4 week follow up IVIG - pt to see MASON for this appt per Fara 04/05/2025 2:00 PM EST Infusion Center Hematology/Oncology [address] [facility] [place] [address] BENLYSTA - 05/03/2025 2:00 PM EST Infusion Center Hematology/Oncology [address] [place] [address] BENLYSTA - documented as of this encounter Visit Diagnoses Diagnosis CHRISTIAN positive- Primary Other and unspecified nonspecific immunological findings Other systemic lupus erythematosus with other organ involvement (HCC) documented in this encounter Care Teams Meat Selector Relationship Specialty Start Date End Date Gay De La Torre(Historical), LINUX SUPPORT ENGINEER.ENERGY SALES CONSULTANT PCP - General Family Medicine 10/24/21 02/26/22 Manuel Klein MD PCP - General Family Medicine 02/27/22 Manuel Klein MD Referring Family Medicine 02/12/22 Manuel Klein MD [address] [place] [address] Referring Family Medicine 07/06/24 documented as of this encounter
--- OUTSIDE RECORDS SUMMARY | 2025-03-09 22:34 | XMS_ITS | Encounter Summary ---
Author Organization [facility] Address [address] [place] [address] Care Team Providers Care Building Mechanic Name Role Phone Manuel Klein MD Unavailable [phone] Manuel Klein MD Primary Care Provider +-4 Manuel Klein MD Unavailable [phone] Source Comments In the event this information is protected by the Federal Confidentiality of Alcohol and Drug AbusePatient Records regulations: The Federal rules restrict any use of the information to criminally investigate or prosecute any alcohol or drug abuse patient.[facility] Encounter Details Date Type Department Care Team (Late st Contact Info) Description 09/07/2022 Patient Msg Integrative and Lifestyle Medicine [address] [place] [address] Provider, Ccf Video Visit Social [...] ot on file 08/09/2020 Data from: https://www.neighborhoodatlas.medicine.[facility]/. Last address [...] Description 03/21/2025 9:00 AM EDT Office Visit [facility] [address] [place] [address] 4 week follow up IVIG - pt to see MASON for this appt per Fara 03/21/2025 9:20 AM EDT Visit (SP) Office Hematology/Oncology [address] [place] [address] Jose Cho MD [address] [place] [address] 4 week follow up IVIG - pt to see MASON for this appt per Fara 03/21/2025 9:40 AM EDT Infusion Center Hematology/Oncology [address] [place] [address] Gabbi, Chair [address] [place] [address] 4 week follow up IVIG - pt to see MASON for this appt per Fara 04/05/2025 2:00 PM EST Infusion Center Hematology/Oncology [address] [facility] [place] [address] BENLYSTA - 05/03/2025 2:00 PM [facility] Infusion Center Hematology/Oncology [address] [place] [address] BENLYSTA - documented as of this encounter Visit Diagnoses Not on filedocumented in this encounter Care Teams Building Mechanic Relationship Specialty Start Date End Date Manuel Klein MD PCP - General Family Medicine 02/27/22 Manuel Klein MD Referring Family Medicine 02/12/22 Manuel Klein MD [address] [place] [address] Referring Family Medicine 07/06/24 documented as of this encounter
--- OUTSIDE RECORDS SUMMARY | 2025-03-09 22:34 | XMS_ITS | Encounter Summary ---
Author Organization [facility] Address [address] [facility] [place] [address] Care Team Providers Care Exercise Manager Name Role Phone Gay De La Torre MD Unavailable [phone] Encounter Details Date Type Department Care Team (Latest Contact Info) Description 02/28/2025 Travel Social History Tobacco Use Types Packs/Day [...] 03/19/2025 10:20 AM EDT Office Visit [facility] [place] [facility] [address] [facility] 900 [place] [address] Mary Grace Mejias MD 112 [facility] 130 [place] [address] 03/23/2025 11:30 AM EDT [facility] 703 [facility] 150 [place] [address] Terence Blum MD 7[address] [facility] 150 [place] [address] 07/25/2025 11:00 AM EST Office Visit [facility] [address] [place] [address] Cynthia English MD [address] [place] [address] documented as of this encounter Visit Diagnoses Not on filedocumented in this encounter Care Teams Exercise Manager Relationship Specialty Start Date End Date Gay De La Torre MD [address] [place] [address] Referring Physician Family Medicine 07/18/24 documented as of this encounter
--- OUTSIDE RECORDS SUMMARY | 2025-03-09 22:34 | XMS_ITS | Encounter Summary ---
Author Organization [facility] Address [address] [place] [address] Care Team Providers Care Injection Moulding Machine Operator Name Role Phone House, Charles Culver MD Primary Care Provider [phone] Gay De La Torre MD Unavailable [phone] Encounter Details Date Type Department Care Team (Late Contact Info) Description 09/29/2023 Clinisync Result Encounter [facility] External Department Unsolicited Zita Rogers, DIRECT MARKETING REPRESENTATIVE 5319 [facility] [address] [phone] Social History Tobacco Use Types Packs/Day Years [...] 03/19/2025 10:20 AM EDT Office Visit [facility] [place] [facility] [address] [place] [address] Mary Grace Mejias MD 112 [facility] 130 [place] [address] 03/23/2025 11:30 AM EDT [facility] [address] [place] [address] Terence Blum MD [address] [place] [address] 07/25/2025 11:00 AM EST Office Visit [facility] [address] [place] [address] Cynthia English MD [address] [place] [phone] documented as of this encounter Procedures Procedure Name Priority Date/Time Associated Diagnosis Comments XR LUMBAR SPINE MIN 4V 09/29/2023 7:22 AM EDT documented in this encounter Results * XR LUMBAR SPINE MIN 4V (09/29/2023 7:22 AM EDT) Anatomical Region Laterality Modality Other 09/29/2023 7:22 AM EDT Narrative 09/29/2023 7:25 AM EDT [address] [address] XRay Report Signed Patient: JONES PANIAGUA MR#: [id number] : 1980 Acct:[id number] Age/Sex: 42 / F ADM Date: 09/28/23 Loc: RAD Attending Dr: ZITA ROGERS Ordering Physician: ZITA ROGERS Date of Service: 09/28/23 Procedure(s): XR lumbar spine min 4V Accession Number(s): [id number] cc: GAY DE LA TORRE ; ZITA ROGERS The [address] [address] Patient Name: JONES PANIAGUA MRN: [id number] date: 1980 Sex: F Assigned Patient Location: RAD Current Patient Location: Accession/Order Number: [id number] Exam Date: 09/28/2023 14:41 Report Date: 09/29/2023 [...] M.D. Signed By: 09/29/23724 DD/ 1 TD/TT: Farm Equipment Maintenance Supervisor: Procedure Note Radiology, Radiologist, MD - 09/29/2023 [place] [address] XRay Report Signed Patient: JONES PANIAGUA R#: [id number] : 1980Acct:[id number] Age/Sex: 42 / FADM Date: 09/28/23 Loc: [facility] Attending Dr: ZITA ROGERS Ordering Physician: ZITA ROGERS Date of Service: 09/28/23 Procedure(s): XR lumbar spine min 4V Accession Number(s): [id number] cc: GAY DE LA TORRE ; ZITA ROGERS The [address] [address] Patient Name: JONES PANIAGUA MRN: [id number] date: 1980 Sex: F Assigned Patient Location: [facility] Current Patient Location: Accession/Order Number: [id number] Exam Date: 09/28/2023 14:41 Report Date: 09/29/2023 [...] Shaikh M.D. Signed By:09/29/23724 DD/ 1 TD/TT: Farm Equipment Maintenance Supervisor: us Zita Rogers DIRECT MARKETING REPRESENTATIVE [facility] Final Result documented in this encounter Visit Diagnoses Not on filedocumented in this encounter Care Teams Injection Moulding Machine Operator Relationship Specialty Start Date End Date Charles Nicole MD PCP - General Family Medicine 02/09/24 07/17/24 Gay De La Torre MD [address] [place], [place] [phone] Referring Physician Family Medicine 07/18/24 documented as of this encounter
--- OUTSIDE RECORDS SUMMARY | 2025-03-09 22:34 | XMS_ITS | Encounter Summary ---
Author Organization [facility] Address [address] [place] [address] Care Team Providers Care Financial Reporting Accountant Name Role Phone Gay De La Torre MD Unavailable [phone] Encounter Details Date Type Department Care Team (Late Contact Info) Description 03/02/2025 External Result Encounter [facility] External Department Unsolicited Terence Blum MD [address] [address] Social History Tobacco Use Types Packs/Day [...] Department Care Team (Late Contact Info) Description 03/19/2025 10:20 AM EDT Office Visit [facility] [place] [facility] [address] [facility] 900 [place] [address] Mary Grace Mejias MD 112 [facility] 130 [place] [address] 03/23/2025 11:30 AM EDT [facility] 703 [facility] 150 [place] [address] Terence Blum MD 703 [facility] [address] [place] [address] 07/25/2025 11:00 AM EST Office Visit [facility] [address] [place] [address] Cynthia English MD [address] [place] [address] Pending Results Name Type Priority Associated Diagnoses Date /Time ANAEROBIC CULTURE Lab Routine 5:17 PM EDT documented as of this encounter Procedures Procedure Name Priority Date/Time Associated Diagnosis Comments AEROBIC ELPIDIO CHARGE (NMIC56) Routine 03/02/2025 5:17 PM EDT ANAEROBIC CULTURE Routine 03/02/2025 5:1 7 PM EDT AEROBIC CULTURE Routine 03/02/2025 5:17 PM EDT GRAM STAIN Routine 03/02/2025 5:17 PM EDT documented in this encounter Results * (ABNORMAL) AEROBIC ELPIDIO CHARGE (NMIC56) (03/02/2025 5:17 PM EDT) AMIKACIN <16(S) 03/04/2025 9:13 AM EDT [facility] AZTREONAM <4(I) 03/04/2025 9:13 AM EDT [facility] CEFEPIME <2(S) 03/04/2025 9:13 AM EDT [facility] CEFTAZIDIME <1(I) 03/04/2025 9:13 AM EDT [facility] CEFTAZIDIME/AVIBA CTAM <4(S) 03/04/2025 9:13 AM EDT [facility] CEFTOLOZANE/TAZOB ACTAM <2(S) 03/04/2025 9:13 AM EDT [facility] CEFTRIAXONE <1(I) 03/04/2025 9:13 AM EDT [facility] CIPROFLOXACIN >2(R) 03/04/2025 9:13 AM EDT [facility] ERTAPENEM <0.5(S) 03/04/2025 9:13 AM EDT [facility] GENTAMICIN <2(S) 03/04/2025 9:13 AM EDT [facility] LEVOFLOXACIN <0.5(S) 03/04/2025 9:13 AM EDT [facility] MEROPENEM <1(S) 03/04/2025 9:13 AM EDT [facility] MEROPENEM/VABORBA CTAM <2(S) 03/04/2025 9:13 AM EDT [facility] PIPERACILLIN/TAZO BACTAM <8(I) 03/04/2025 9:13 AM EDT [facility] TETRACYCLINE >8(R) 03/04/2025 9:13 AM EDT [facility] TIGECYCLINE <2(S) 03/04/2025 9:13 AM EDT [facility] TOBRAMYCIN <2(S) 03/04/2025 9:13 AM EDT [facility] TRIMETHOPRIM/SULF AMETHOXAZOLE <0.5/9.5( S) 03/04/2025 9:13 AM EDT [facility] Other Specimen from uterine cervix / Unknown 03/02/2025 5:17 PM EDT 03/02/2025 5:38 PM EDT Comment:Abscess Terence Pacheco MD [facility] Final Result Performing Organization Address City/State/[facility] de Phone Number [facility] [address] [place] [address], [facility] [address] [place] [address] * (ABNORMAL) Gram stain (03/02/2025 5:17 PM EDT) GRAM STAIN 1+ Gram Positive Cocci(A) 03/03/2025 2:17 PM EDT [facility] GRAM STAIN 2+ White Blood Cells(A) 03/03/2025 2:17 PM [address]T [facility] Other Specimen from uterine cervix / Unknown 03/02/2025 5:17 PM EDT 03/02/2025 5:38 PM EDT Comment:Abscess Narrative [facility] - 03/08/2025 12:35 PM EDT Comment pilonidal abscess culture Terence Pacheco MD LAB MICROBIOLOGY - GENERAL O RDERABLES Final Result Performing Organization Address [facility] de Phone Number [facility] [address] [place] [address], [facility] [address] [place] [address] * AEROBIC CULTURE (03/02/2025 5:17 PM EDT) Pathologist [facility] ORGANISM Serratia marcescens 03/04/2025 9:13 AM EDT [facility] QUANTITY OF GROWTH Light Growth 03/04/2025 9:13 AM EDT [facility] Other Specimen from uterine cervix / Unknown 03/02/2025 5:17 PM EDT 03/02/2025 5:38 PM EDT Comment:Abscess Narrative [facility] - 03/08/2025 12:35 PM EDT Comment pilonidal abscess culture Terence Pacheco MD LAB BLOOD ORDERABLES Final R esult Performing Organization Address [facility] Co de Phone Number [facility] [address] [place] [address], [facility] [address] [place] [address] documented in this encounter Visit Diagnoses Not on filedocumented in this encounter Care Teams Financial Reporting Accountant Relationship Specialty Start Date End Date Gay De La Torre MD [address] [place] [address] Referring Physician Family Medicine 07/18/24 documented as of this encounter
--- OUTSIDE RECORDS SUMMARY | 2025-03-09 22:34 | XMS_ITS | Encounter Summary ---
Author Organization [facility] Address [address] [place] [address] Care Team Providers Care Fire Coordinator Name Role Phone Manuel Klein MD Unavailable [phone] Manuel Klein MD Primary Care Provider +-4 Manuel Klein MD Unavailable [phone] Source Comments In the event this information is protected by the Federal Confidentiality of Alcohol and Drug AbusePatient Records regulations: The Federal rules restrict any use of the information to criminally investigate or prosecute any alcohol or drug abuse patient.[facility] Encounter Details Date Type Department Care Team (Late st Contact Info) Description 06/10/2022 Patient Msg Hematology/Oncology [address] [place] [address] Cele Marshall Nurse Dre [address] [place] [place] [address] Appointment Cancellation Request Social History Tobacco [...] N ot on file 08/09/2020 Data from: https://www.neighborhoodatlas.medicine.[facility]/. Last address used for calculation [...] Description 03/21/2025 9:00 AM EDT Office Visit [facility] [address] [place], [place] [address] [address] 4 week follow up IVIG - pt to see MASON for this appt per Fara 03/21/2025 9:20 AM EDT Visit (SP) Office Hematology/Oncology [address] [place] [address] Jose Cho MD [address] [facility] [place] [address] 4 week follow up IVIG - pt to see MASON for this appt per Fara 03/21/2025 9:40 AM EDT Infusion Center Hematology/Oncology [address] [facility] [address] [place], Chair 4 [address] [place] [address] 4 week follow up IVIG - pt to see MASON for this appt per Fara 04/05/2025 2:00 PM EST Infusion Center Hematology/Oncology [address] [facility] [address] BENLYSTA - 05/03/2025 2:00 PM [facility] Infusion Center Hematology/Oncology [address] [facility] [place] [address] BENLYSTA - documented as of this encounter Visit Diagnoses Not on filedocumented in this encounter Care Teams Fire Coordinator Relationship Specialty Start Date End Date Manuel Klein MD PCP - General Family Medicine 02/27/22 Manuel Klein MD Referring Family Medicine 02/12/22 Manule Klein MD [address] [facility] [place] [address] Referring Family Medicine 07/06/24 documented as of this encounter
--- OUTSIDE RECORDS SUMMARY | 2025-03-09 22:34 | XMS_ITS | Encounter Summary ---
Author Organization [facility] Address [address] [place] [address] Care Team Providers Care Travel Med Surg Rn Name Role Phone Gay De La Torre(Historical) ACCOUNT DEVELOPMENT ASSOCIATE.INSTRUMENT SPECIALIST Primary Care Provider Unavailable Manuel Klein MD Unavailable [phone] Manuel Klein MD Primary Care Provider +-4 Manuel Klein MD Unavailable [phone] Source Comments In the event this information is protected by the Federal Confidentiality of Alcohol and Drug AbusePatient Records regulations: The Federal rules restrict any use of the information to criminally investigate or prosecute any alcohol or drug abuse patient.[facility] Encounter Details Date Type Department Care Team (Late st Contact Info) Description 05/05/2021 Get Medical Advice Rheumatology [address] [place], [place] [phone] Sandra Park MD [address] [place], [place] [id number] Steroids Social History Tobacco Use Types Packs/Day [...] N ot on file 08/09/2020 Data from: https://www.neighborhoodatlas.[facility]/. Last address used for calculation Not on [...] Description 03/21/2025 9:00 AM EDT Office Visit [facility] [address] [facility] [address] 4 week follow up IVIG - pt to see MASON for this appt per Fara 03/21/2025 9:20 AM EDT Visit (SP) Office Hematology/Oncology [address] [facility] [place] [address] Jose Cho MD [address] [facility] [place] [address] 4 week follow up IVIG - pt to see MASON for this appt per Fara 03/21/2025 9:40 AM EDT Infusion Center Hematology/Oncology [address] [facility] [place] [address] [place], Chair 4 [address] [facility] [place] [address] 4 week follow up IVIG - pt to see MASON for this appt per Fara 04/05/2025 2:00 PM EST Infusion Center Hematology/Oncology [address] [facility] [place] [address] BENLYSTA - 05/03/2025 2:00 PM EST Infusion Center Hematology/Oncology [address] [facility] [place] [address] BENLYSTA - documented as of this encounter Visit Diagnoses Diagnosis Other systemic lupus erythematosus with other organ involvement (HCC)- Primary documented in this encounter Care Teams Travel Med Surg Rn Relationship Specialty Start Date End Date Gay De La Torre(Historical), ACCOUNT DEVELOPMENT ASSOCIATE.INSTRUMENT SPECIALIST PCP - General Family Medicine 10/24/21 02/26/22 Manuel Klein MD PCP - General Family Medicine 02/27/22 Manuel Klein MD Referring Family Medicine 02/12/22 Manuel Klein MD [address] [place] [address] Referring Family Medicine 07/06/24 documented as of this encounter
--- OUTSIDE RECORDS SUMMARY | 2025-03-09 22:34 | XMS_ITS | Clinical Summary ---
Author Organization [facility] Address [address] [place] [address] Phone Care Team Providers Care Service Director Name Role Phone Mitali, Michelle London MOSQUITO SPRAYER-MEDICAID COLLECTION SPECIALIST Unavailable [phone] Kenneth Patel MD Unavailable [phone] Gay De La Torre MOSQUITO SPRAYER-MEDICAID COLLECTION SPECIALIST Primary Care Provider Allergies Active Allergy [...] 10/24/19 Active ergocalciferol (Vitamin D-2) 1.25 MG (19863 UT) capsule Take 1 capsule (50,000 Units) [...] Description 07/26/2025 11:00 AM EST Office Visit [facility] 7[address] [facility] [address] [place] [address] Lois Arguelles MD 703 [facility] [address] [place] [address] Health Maintenance Due Date Last [...] - Tdap) 2002 HPV Vaccines (1 - Risk 3-dos e Standard series) 10/05/2007 Diabetes Screening 03/17/2023 03/17/2022 COVID-19 Vaccine (3 - Pfizer risk series) 03/23/2023 02/23/2023, 02/08/2022 Influenza Vaccine (#1) 2024 Mammogram 04/06/2025 04/06/2024 Yearly Adult Physical 06/07/2025 [...] Name Priority Date/Time Associated Diagnosis Comments CONVERTED REGISTERED NURSE HH CASE MANAGER CYTOLOGY Routine 05/04/2008 12:00 AM EST from Last 3 Months or Most Recently Relevant to Health Maintenance Results * CONVERTED REGISTERED NURSE HH CASE MANAGER CYTOLOGY (05/04/2008 12:00 AM EST) Pathology Report Date of Procedure: 05/04/2008 Pathologist: Date Reported: 05/09/2008 Date Received: 05/07/2008 Submitting Physician: Conversion FINAL CYTOLOGICAL INTERPRETATION Satisfactory for evaluation. Transformation zone insufficient. Negative for squamous intraepithelial lesion or malignancy. - SCREENED BY: DYLAN OFRREST (ASCP) Note: Pap smear testing is a screening procedure and subject to both false negative and false positive results as evidenced by published data. Your patient's test result should be interpreted in this context, together with patient's history and clinical findings. - Signed by: JESSICA ORTIZ [facility] 05/09/08 Electronically Signed Out By [facility], Cytology/ By the signature on this [...] Source of Specimen A: Unknown Part Type [facility] Department of Pathology [address] [place] CONVERTED FINAL DIAGNOSIS Satisfactory for [...] clinical findings. - Signed by: JESSICA ORTIZ [facility] 05/09/08 [facility] [place] CONVERTED CLINICAL DIAGNOSIS-HIST ORY - HISTORY & COMMENTS LMP: 02/14/08 Reflex HPV ordered if result is [facility] CONVERTED SLIDE-BLOCK DESCRIPTION - TISSUES - 1. CERVICAL THIN PREP - [facility] CONVERTED REPORT COMMENTS [place] Case # [id number] DOS: 05/04/08 - ORD PHYSICIAN: Jose Blackburn MD - ORD PROCEDURES - CYTO PAP TLP MAN / - COPIES TO: Jose Blackburn MD - Status History - ENT 05/07/08 1128 ISABELL [facility] DIAG 05/09/08 0750 JESSICA ORTIZ 05/09/08 1524 JESSICA ORTIZ - [place] Conversion Report - [facility] CONVERTED FINAL REPORT PDF LINK TO COPY AND PASTE \copathshare\copa th\PDF [id number].pdf [facility] Unrecognized Part Type 05/04/2008 05/07/2008 11:28 AM EST us Copath Conversion LAB CYTOLOGY ORDERABLES Final Result [facility] [place] [address] [place] [address] from Last 3 Months or Most Recently Relevant to Health Maintenance [facility] Care Teams Service Director Relationship Specialty Start Date End Date Gay De La Torre APRN-MEDICAID COLLECTION SPECIALIST [address] [place] [address] PCP - General 07/13/23 Michelle Jasmine APRN-MEDICAID COLLECTION SPECIALIST Nurse Practitioner Cardiology 06/08/23 Kenneth Patel MD Consulting Physician Cardiology 06/23/23
--- OUTSIDE RECORDS SUMMARY | 2025-03-09 22:34 | XMS_ITS | Encounter Summary ---
Author Organization [facility] Address [address] [place] [address] Phone Care Team Providers Care Labor Delivery Rn Name Role Phone MitaliMichelle IAP DISPLAYS ANALYST-SYSTEM SOFTWARE DEVELOPER Unavailable [phone] Kenneth Patel MD Unavailable [phone] Gay De La Torre IAP DISPLAYS ANALYST-SYSTEM SOFTWARE DEVELOPER Primary Care Provider Encounter Details Date Type Department Care Team (Late st Contact Info) Description 12/11/2023 Scanned Document [facility] [address] [place] [phone] Scanning, Generic Provider Social History Tobacco Use [...] Description 07/26/2025 11:00 AM EST Office Visit [facility] [address] [facility] [address] [place] [address] Lois Arguelles MD [address] [place] [address] documented as of this encounter [...] as of this encounter Care Teams Labor Delivery Rn Relationship Specialty Start Date End Date Gay De La Torre, IAP DISPLAYS ANALYST-SYSTEM SOFTWARE DEVELOPER [address] [place] [address] PCP - General 07/13/23 Michelle Jasmine APRN-SYSTEM SOFTWARE DEVELOPER Nurse Practitioner Cardiology 06/08/23 Kenneth Patel MD Consulting Physician Cardiology 06/23/23 documented as of this encounter
--- OUTSIDE RECORDS SUMMARY | 2025-03-09 22:34 | XMS_ITS | Encounter Summary ---
Author Organization [facility] Address [address] [facility] [place] [address] Care Team Providers Care Video Production Specialist Name Role Phone House, Charles Culver MD Primary Care Provider Gay De La Torre MD Unavailable [phone] Encounter Details Date Type Department Care Team (Late Contact Info) Description 11/18/2023 Clinisync Result Encounter [facility] External Department Unsolicited Katy Valdivia, DO [address] [facility] [place] [address] Social History Tobacco Use Types [...] 03/19/2025 10:20 AM EDT Office Visit [facility] [address] [place] [address] Mary Grace Mejias MD [address] [facility] [address] [place] [address] 03/23/2025 11:30 AM EDT Office Visit [facility] [address] [facility] [address] [place] [address] Terence Blum MD [address] [place] [address] 07/25/2025 11:00 AM EST Office Visit [facility] [place] [facility] [address] [place] [address] Cynthia English MD [address] [place] [address] documented as of this encounter Procedures Procedure [...] EDT Narrative 11/18/2023 4:42 PM EDT The [address] [address] Ultrasound Report Signed Patient: JONES PANIAGUA MR#: [id number] : 1980 Acct:[id number] Age/Sex: 43 / F ADM Date: 11/18/23 Loc: US Attending Dr: Katy Valdivia D.O. Ordering Physician: Katy Valdivia D.O. Date of Service: 11/18/23 Procedure(s): US pelvis w/ transvaginal Accession Number(s): [id number] cc: GAY DE LA TORRE ; Katy Valdivia D.O. The [place] [address] Patient Name: JONES PANIAGUA MRN: [id number] date: 1980 Sex: F Assigned Patient Location: US Current Patient Location: US Accession/Order Number: [id number] Exam Date: 11/18/2023 14:00 Report Date: 11/18/2023 [...] Signed By: 11/18/23 1642 DD/ 1639 TD/TT: Professor Of Architecture: Procedure Note Radiology, Radiologist, MD - 11/18/2023 [place] [address] Ultrasound Report Signed Patient: JONES PANIAGUA BMR#: [id number] : 1980Acct:[id number] Age/Sex: 43 / FADM Date: 11/18/23 Loc: US Attending Dr: Katy Valdivia D.O. Ordering Physician: Katy Valdivia D.O. Date of Service: 11/18/23 Procedure(s): US pelvis w/ transvaginal Accession Number(s): [id number] cc: GAY DE LA TORRE ; Katy Valdivia D.O. [place] [address] Patient Name: JONES PANIAGUA MRN: [facility]:[id number] date: 1980 Sex: F Assigned Patient Location: Current Patient Location: US Accession/Order Number: [id number] Exam Date: 11/18/2023 14:00 Report Date: 11/18/2023 [...] M.D. Signed By:11/18/23 1642 DD/ 1639 TD/TT: Professor Of Architecture: Katy Valdivia DO [facility] Final Result * (ABNORMAL) ALL DEHYDROEPIANDROSTERONE (11/18/2023 3:04 PM EDT) DHEA, SERUM 25(A) 31 - 701 ng/dL [facility] Comment: This test was developed and its performance characteristics determined by [facility]. It has not been cleared or approved by the Food and Drug Administration. Performed at: [address] [id number] Shoemaking Finisher: Senait Hardin MD, Phone: [phone] 11/18/2023 3:04 PM EDT 11/18/2023 3:14 PM EDT Narrative [facility] - 11/23/2023 12:10 PM EDT Katy Skip DO [facility] Final Result Performing Organization Address City/[facility] Co de Phone Number [facility] * (ABNORMAL) [facility] PROLACTIN (11/18/2023 3:04 PM EDT) PROLACTIN 4.7(A) 4.8 - 33.4 ng/mL [facility] Comment: Performed at: [address] [id number] Shoemaking Finisher: Doyle Mendenhall PhD, Phone: [phone] 11/18/2023 3:04 PM EDT 11/18/2023 3:14 PM EDT Narrative [facility] - 11/19/2023 4:07 AM EDT Katy Skip DO [facility] Final Result Performing Organization Address [facility] Co de Phone Number [facility] * [...] DO [facility] Final Result Performing Organization Address City/[facility] Co de Phone Number [facility] TB * ALL LUTEINIZING HORMONE (11/18/2023 3:04 PM EDT) LUTEINIZING HORMONE(LH) 24.9 . mIU/mL [facility] Comment: Adult Female Range Follicular phase 2.4 - 12.6 Ovulation phase 14.0 - 95.6 Luteal phase 1.0 - 11.4 Postmenopausal 7.7 - 58.5 11/18/2023 3:04 PM EDT 11/18/2023 3:14 PM EDT Narrative [facility] - 11/19/2023 4:07 AM EDT us Katy Skip DO [facility] Final Result Performing Organization Address [facility] Co de Phone Number [facility] TB * (ABNORMAL) ALL DHEA SULFATE (11/18/2023 3:04 PM EDT) DHEA-SULFATE 15.4(A) 57.3 - 279.2 ug/dL [facility] 11/18/2023 3:04 PM EDT 11/18/2023 3:14 PM EDT Narrative [facility] - 11/19/2023 4:07 AM EDT us Katy Skip DO [facility] Final Result Performing Organization Address [facility] Co de Phone Number [facility] documented in this encounter Visit Diagnoses Not on filedocumented in this encounter Care Teams Video Production Specialist Relationship Specialty Start Date End Date Charles Nicole MD PCP - General Family Medicine 02/09/24 07/17/24 Gay De La Torre MD [address] [place] [address] Referring Physician Family Medicine 07/18/24 documented as of this encounter
--- OUTSIDE RECORDS SUMMARY | 2025-03-09 22:34 | XMS_ITS | Encounter Summary ---
Author Organization [facility] Address [facility] [place] [address] Care Team Providers Care Production Control Manager Name Role Phone Manuel Klein MD Unavailable [phone] Manuel Klein MD Primary Care Provider +-4 Manuel Klein MD Unavailable [phone] Source Comments In the event this information is protected by the Federal Confidentiality of Alcohol and Drug AbusePatient Records regulations: The Federal rules restrict any use of the information to criminally investigate or prosecute any alcohol or drug abuse patient.[facility] Encounter Details Date Type Department Care Team (Late st Contact Info) Description 07/27/2022 Patient Msg Neurology [address] [place] [address] Lexus Heck APRN.[place] [id number] Sleep Follow up Social History Tobacco Use [...] N ot on file 08/09/2020 Data from: https://www.neighborhoodatlas.medicine.[facility]/. Last address used for calculation Not [...] Description 03/21/2025 9:00 AM EDT Office Visit [facility] [address] [place] [address] [place] [address] 4 week follow up IVIG - pt to see MASON for this appt per Fara 03/21/2025 9:20 AM EDT Visit (SP) Office Hematology/Oncology [address] [place] [address] Jose Cho MD [address] [place] [address] 4 week follow up IVIG - pt to see MASON for this appt per Fara 03/21/2025 9:40 AM EDT Infusion Center Hematology/Oncology [address] [place] [address] [place], Chair [address] [place] [address] 4 week follow up IVIG - pt to see MASON for this appt per Fara 04/05/2025 2:00 PM EST Infusion Center Hematology/Oncology [address] [place] [address] [place] [address] BENLYSTA - 05/03/2025 2:00 PM [facility] Infusion Center Hematology/Oncology [address] [place] [address] [place] [address] BENLYSTA - documented as of this encounter Visit Diagnoses Not on filedocumented in this encounter Care Teams Production Control Manager Relationship Specialty Start Date End Date Manuel Klein MD PCP - General Family Medicine 02/27/22 Manuel Klein MD Referring Family Medicine 02/12/22 Manuel Klein MD [address] [place] [address] Referring Family Medicine 07/06/24 documented as of this encounter
--- OUTSIDE RECORDS SUMMARY | 2025-03-09 22:34 | XMS_ITS | Encounter Summary ---
Author Organization [facility] Address [address] [facility] [place] [address] Care Team Providers Care Straddle Bug Name Role Phone Gay De La Torre MD Unavailable [phone] Encounter Details Date Type Department Care Team (Late Contact Info) Description 03/07/2025 Orders Only [facility] [address] [address] Terence Blum MD [address] [address] Social History Tobacco Use Types [...] 03/19/2025 10:20 AM EDT Office Visit [facility] [address] [place] [address] Mary Grace Mejias MD 112 [facility] 130 [place] [address] 03/23/2025 11:30 AM EDT Office Visit [facility] [address] [facility] 150 [place] [address] Terence Blum MD 703 [facility] [address] [place] [address] 07/25/2025 11:00 AM EST Office Visit [facility] [place] [facility] [address] [place] [address] Cynthai English MD [address] [place] [address] documented as of this encounter Procedures Procedure Name Priority Date/Time Associated Diagnosis Comments GENERAL PATHOLOGY Routine 03/02/2025 11:32 AM EDT documented in this encounter Results * GENERAL PATHOLOGY (03/02/2025 11:32 AM EDT) Terence Pacheco MD [facility] Final Result documented in this encounter Visit Diagnoses Not on filedocumented in this encounter Care Teams Straddle Bug Relationship Specialty Start Date End Date Gay De La Torre MD [address] [place] [address] Referring Physician Family Medicine 07/18/24 documented as of this encounter
--- OUTSIDE RECORDS SUMMARY | 2025-03-09 22:34 | XMS_ITS | Encounter Summary ---
Author Organization [facility] Address [address] [place] [address] Care Team Providers Care Microfabrication Engineer Manager Name Role Phone Gay De La Torre MD Unavailable [phone] Reason for Visit * Reason Onset Date Comments Questions on medications. 03/05/2025 Encounter Details Date Type Department Care Team (Late st Contact Info) Description 03/05/2025 Telephone [facility] [address] [facility] [address] [place] [address] Elizabeth Lockhart MA Questions on medications. Social History Tobacco Use Types Packs/Day Years [...] as of this encounter Miscellaneous Notes * Telephone Encounter - Elizabeth Lockhart MA - 03/05/2025 3:37 PM EDT Pt called back and stated that this antibiotic will interfere with her lupus and does not want to get C-Diff from this. She wants the other medication she requested earlier. Per Dr Blum she can have this and it is not going to be as effective as what she growing. The doctor is only treating recent culture. I did send the new order to the infusion center and they will call her to schedule. Called patent and explained this. She understood this and will have this set up. * Telephone Encounter - Elizabeth oLckhart MA - 03/05/2025 11:32 AM EDT Ari[place]na Pani[place] 1980 asked to talk to you before her medications are prescribed. She said thatshe believes that she cannot take some of them and has some confusion concerning that. I spoke to Dr Blum and he said the keflex should cover it. She is looking for something that willnot interfere with her lupus and will cover her long standing breast infection and the pilonidal cultures. Asking for IV antibiotics. Spoke to the infusion center and they will get everything set up and call patient. Order faxed to them and patient was called but had to leave a message for patient to call back. documented in this encounter Plan of Treatment Upcoming Encounters Date Type Department Care Team (Late st Contact Info) Description 03/19/2025 10:20 AM EDT Office Visit [facility] [address] [facility] [address] [place] [address] Mary Grace Mejias MD 112 [facility] 130 [place] [address] 03/23/2025 11:30 AM EDT Office Visit [facility] [address] [facility] 150 [place] [address] Terence Blum MD 703 [facility] 150 [place] [address] 07/25/2025 11:00 AM EST Office Visit [facility] [address] [place] [address] Cynthia English MD [address] [place] [address] documented as of this encounter Visit Diagnoses Not on filedocumented in this encounter Care Teams Microfabrication Engineer Manager Relationship Specialty Start Date End Date Gay De La Torre MD [address] [place], [place] [id number] Referring Physician Family Medicine 07/18/24 documented as of this encounter
--- OUTSIDE RECORDS SUMMARY | 2025-03-09 22:34 | XMS_ITS | Encounter Summary ---
Author Organization [facility] Address [address] [place] [address] Care Team Providers Care Fleet Dispatch Manager Name Role Phone House, Charles Culver MD Primary Care Provider Gay De La Torre MD Unavailable [phone] Encounter Details Date Type Department Care Team (Late Contact Info) Description 09/29/2023 Clinisync Result Encounter [facility] External Department Unsolicited Sharron Rogers, SPANISH INTERPRETER 5319 [facility] [address] [id number] Social History Tobacco Use Types Packs/Day Years [...] 03/19/2025 10:20 AM EDT Office Visit [facility] [address] [place] [address] Mary Grace Mejias MD 112 [facility] 130 [place] [address] 03/23/2025 11:30 AM EDT Office Visit [facility] [address] [facility] [address] [place] [phone] Terence Blum MD 703 [facility] [address] [place] [address] 07/25/2025 11:00 AM EST Office Visit [facility] [address] [place] [address] Cynthia English MD [address] [place] [address] documented as of this encounter Procedures Procedure Name Priority Date/Time Associated Diagnosis Comments XR THORACIC SPINE 3V 09/29/2023 7:22 AM EDT documented in this encounter Results * XR THORACIC SPINE 3V (09/29/2023 7:22 AM EDT) Anatomical Region Laterality Modality Other 09/29/2023 7:22 AM EDT Narrative 09/29/2023 7:25 AM EDT [address] [address] XRay Report Signed Patient: ARIADNA PANIAGUA MR#: [id number] : 1980 Acct:[id number] Age/Sex: 42 / F ADM Date: 09/28/23 Loc: RAD Attending Dr: SHARRON ROGERS Ordering Physician: SHARRON ROGERS Date of Service: 09/28/23 Procedure(s): XR thoracic spine 3V Accession Number(s): [id number] cc: GAY DE LA TORRE ; SHARRON ROGERS The [address] [address] Patient Name: ARIADNA PANIAGUA MRN: [id number] date: 1980 Sex: F Assigned Patient Location: RAD Current Patient Location: Accession/Order Number: [id number] Exam Date: 09/28/2023 14:43 Report Date: 09/29/2023 [...] M.D. Signed By: 09/29/2325 DD/ 1 TD/TT: Copyholder: Procedure Note Radiology, Radiologist, MD - 09/29/2023 [place] [address] XRay Report Signed Patient: ARIADNA PANIAGUA BMR#: [id number] : 1980Acct:[id number] Age/Sex: 42 / FADM Date: 09/28/23 Loc: [facility] Attending Dr: SHARRON ROGERS Ordering Physician: SHARRON ROGERS Date of Service: 09/28/23 Procedure(s): XR thoracic spine 3V Accession Number(s): [id number] cc: GAY DE LA TORRE ; SHARORN ROGERS The [place] [address] Patient Name: ARIADNA PANIAGUA MRN: [id number] date: 1980 Sex: F Assigned Patient Location: [facility] Current Patient Location: Accession/Order Number: [id number] Exam Date: 09/28/2023 14:43 Report Date: 09/29/2023 [...] Shaikh M.D. Signed By:09/29/23724 DD/ 1 TD/TT: Copyholder: us Sharron Rogers SPANISH INTERPRETER [facility] Final Result documented in this encounter Visit Diagnoses Not on filedocumented in this encounter Care Teams Fleet Dispatch Manager Relationship Specialty Start Date End Date Charles Nicole MD PCP - General Family Medicine 02/09/24 07/17/24 Gay De La Torre MD [address] [place], [place] [id number] Referring Physician Family Medicine 07/18/24 documented as of this encounter
--- OUTSIDE RECORDS SUMMARY | 2025-03-09 22:34 | XMS_ITS | Encounter Summary ---
Author Organization [facility] Address [address] [place] [address] Care Team Providers Care Outside Plant Engineer Name Role Phone Manuel Klein MD Unavailable [phone] Manuel Klein MD Primary Care Provider +-4 Manuel Klein MD Unavailable [phone] Source Comments In the event this information is protected by the Federal Confidentiality of Alcohol and Drug AbusePatient Records regulations: The Federal rules restrict any use of the information to criminally investigate or prosecute any alcohol or drug abuse patient.[facility] Encounter Details Date Type Department Care Team (Latest Contact Info) Description 03/29/2024 Patient Msg [facility] [address] [place] [address] Akiko Cooper MD [address] [place] [address] breath test scheduling Social History Tobacco Use [...] 4 09/24/2022 Data from: https://www.neighborhoodatlas.medicine.[facility]/. Last address used for calculation [address] 09/24/2022 Comments No Sex and Gender [...] Description 03/21/2025 9:00 AM EDT Office Visit [facility] Laboratory [address] [place] [address] [place] [address] 4 week follow up IVIG - pt to see MASON for this appt per Fara 03/21/2025 9:20 AM EDT Visit (SP) Office Hematology/Oncology [address] [facility] [place] [address] Jose Cho MD [address] [facility] [place] [address] 4 week follow up IVIG - pt to see MASON for this appt per Fara 03/21/2025 9:40 AM EDT Infusion Center Hematology/Oncology [address] [facility] [place] [address] Gabbi, Chair [address] [facility] [place] [address] 4 week follow up IVIG - pt to see MASON for this appt per Fara 04/05/2025 2:00 PM EST Infusion Center Hematology/Oncology [address] [facility] [place] [address] BENLYSTA - 05/03/2025 2:00 PM [facility] Infusion Center Hematology/Oncology [address] [facility] [place] [address] BENLYSTA - documented as of this encounter Visit Diagnoses Not on filedocumented in this encounter Care Teams Outside Plant Engineer Relationship Specialty Start Date End Date Manuel Klein MD PCP - General Family Medicine 02/27/22 Manuel Klein MD Referring Family Medicine 02/12/22 Manuel Klein MD [address] [facility] [place] [address] Referring Family Medicine 07/06/24 documented as of this encounter
--- OUTSIDE RECORDS SUMMARY | 2025-03-09 22:34 | XMS_ITS | Encounter Summary ---
Author Organization [facility] Address [address] [place] [address] Care Team Providers Care Metal Drawer Name Role Phone Britt, Gay(Historical) TRAVELING REPAIR ACCOUNTANT.RECOVERY ADVOCATE Primary Care Provider Unavailable Manuel Klein MD Unavailable [phone] Manuel Klein MD Primary Care Provider [...] 02/24/2022 Get Medical Advice Infectious Disease [address] [place] [address] Tiffany Head DO [address] [place] [address] Test results Social History Tobacco [...] file 08/09/2020 Data from: https://www.neighborhoodatlas.medicine.[facility]/. Last address used for [...] Description 03/21/2025 9:00 AM EDT Office Visit [facility] Laboratory [address] [place] [address] [place] [address] 4 week follow up IVIG - pt to see MASON for this appt per Fara 03/21/2025 9:20 AM EDT Visit (SP) Office Hematology/Oncology [address] [facility] [place] [place] [address] Jose Cho MD [address] [facility] [place] [address] 4 week follow up IVIG - pt to see MASON for this appt per Fara 03/21/2025 9:40 AM EDT Infusion Center Hematology/Oncology [address] [facility] [place] [address] Gabbi, Chair 4 [address] [facility] [place] [place] [address] 4 week follow up IVIG - pt to see MASON for this appt per Fara 04/05/2025 2:00 PM EST Infusion Center Hematology/Oncology [address] [facility] [place] [address] BENLYSTA - 05/03/2025 2:[address] [facility] Infusion Center Hematology/Oncology [address] [facility] [place] [place] [address] BENLYSTA - documented as of this encounter Visit Diagnoses Not on filedocumented in this encounter Care Teams Metal Drawer Relationship Specialty Start Date End Date Gay De La Torre(Historical), TRAVELING REPAIR ACCOUNTANT.RECOVERY ADVOCATE PCP - General Family Medicine 10/24/21 02/26/22 Manuel Klein MD PCP - General Family Medicine 02/27/22 Manuel Klein MD Referring Family Medicine 02/12/22 Manuel Klein MD [address] [place] [address] Referring Family Medicine 07/06/24 documented as of this encounter
--- OUTSIDE RECORDS SUMMARY | 2025-03-09 22:34 | XMS_ITS | Encounter Summary ---
Author Organization [facility] Address [address] [place] [address] Care Team Providers Care Steam Trap Worker Name Role Phone Manuel Klein MD Unavailable [phone] Manuel Klein MD Primary Care Provider +-4 Manuel Klein MD Unavailable Source Comments In the event this information is protected by the Federal Confidentiality of Alcohol and Drug AbusePatient Records regulations: The Federal rules restrict any use of the information to criminally investigate or prosecute any alcohol or drug abuse patient.[facility] Encounter Details Date Type Department Care Team (Late st Contact Info) Description 05/05/2022 Patient Msg Home Respiratory Therapy [address] [place] [address] [address] [place] [id number] Jami Rivera, PSS PAP Referral Delay Social [...] N ot on file 08/09/2020 Data from: https://www.neighborhoodatlas.medicine.[facility]/. Last address used for calculation Not [...] Description 03/21/2025 9:00 AM EDT Office Visit [facility] Laboratory [address] [place], [place] [address] [address] 4 week follow up IVIG - pt to see MASON for this appt per Fara 03/21/2025 9:20 AM EDT Visit (SP) Office Hematology/Oncology [address] [place], [place] [address] [address] Jose Cho MD [address] [place] [address] 4 week follow up IVIG - pt to see MASON for this appt per Fara 03/21/2025 9:40 AM EDT Infusion Center Hematology/Oncology [address] [place] [address] Gabbi, Chair [address] [place] [address] 4 week follow up IVIG - pt to see MASON for this appt per Fara 04/05/2025 2:00 PM EST Infusion Center Hematology/Oncology [address] [place] [address] BENLYSTA - 05/03/2025 2:00 PM [facility] Infusion Center Hematology/Oncology [address] [place] [address] BENLYSTA - documented as of this encounter Visit Diagnoses Not on filedocumented in this encounter Care Teams Steam Trap Worker Relationship Specialty Start Date End Date Manuel Klein MD PCP - General Family Medicine 02/27/22 Manuel Klein MD Referring Family Medicine 02/12/22 Manuel Klein MD [address] [place] [address] Referring Family Medicine 07/06/24 documented as of this encounter
--- OUTSIDE RECORDS SUMMARY | 2025-03-09 22:34 | XMS_ITS | Encounter Summary ---
Author Organization [facility] Address [address] [place] [address] Care Team Providers Care Veterans' Counselor Name Role Phone Manuel Klein MD Unavailable [phone] Manuel Klein MD Primary Care Provider +-4 Manuel Klein MD Unavailable [phone] Source Comments In the event this information is protected by the Federal Confidentiality of Alcohol and Drug AbusePatient Records regulations: The Federal rules restrict any use of the information to criminally investigate or prosecute any alcohol or drug abuse patient.[facility] Encounter Details Date Type Department Care Team (Late st Contact Info) Description 07/09/2022 Get Medical Advice [facility] [address] [place] [address] Christie Phan MD [address] [place] [address] Cymbalta Social History Tobacco Use [...] on file 08/09/2020 Data from: https://www.neighborhoodatlas.medicine.[facility]/. Last address used for [...] Description 03/21/2025 9:00 AM EDT Office Visit [facility] Laboratory [address] [facility] [place] [address] 4 week follow up IVIG - pt to see MASON for this appt per Fara 03/21/2025 9:20 AM EDT Visit (SP) Office Hematology/Oncology [address] [place] [address] Jose Cho MD [address] [facility] [place] [address] 4 week follow up IVIG - pt to see MASON for this appt per Fara 03/21/2025 9:40 AM EDT Infusion Center Hematology/Oncology [address] [place] [address] [place] [address] Gabbi, Chair 4 [address] [facility] [place] [address] 4 week follow up IVIG - pt to see MASON for this appt per Fara 04/05/2025 2:00 PM EST Infusion Center Hematology/Oncology [address] [place] [address] [place] [address] BENLYSTA - 05/03/2025 2:00 PM [facility] Infusion Center Hematology/Oncology [address] [place] [address] [place] [address] BENLYSTA - documented as of this encounter Visit Diagnoses Not on filedocumented in this encounter Care Teams Veterans' Counselor Relationship Specialty Start Date End Date Manuel Klein MD PCP - General Family Medicine 02/27/22 Manuel Klein MD Referring Family Medicine 02/12/22 Manuel Klein MD [address] [place] [address] Referring Family Medicine 07/06/24 documented as of this encounter
--- OUTSIDE RECORDS SUMMARY | 2025-03-09 22:34 | XMS_ITS | Encounter Summary ---
Author Organization [facility] Address [address] [place] [address] Care Team Providers Care Cutter Helper Name Role Phone Gay De La Torre MD Unavailable [phone] Reason for Visit * Reason Comments Med Refill Encounter Details Date Type Department Care Team (Late st Contact Info) Description 12/07/2024 Refill [facility] [address] [facility] [address] [place] [phone] Андрей Hearn DO [address] [facility] [address] [place] [address] Eustachian tube dysfunction, bilateral; Non-recurrent acute serous [...] Visit [facility] [address] [place] [address] Mary Grace Mejias MD 112 [facility] 130 [place] [address] 03/23/2025 11:30 AM EDT [facility] [address] [facility] 150 [place] [address] Terence Blum MD 703 [facility] 150 [place] [address] 07/25/2025 11:00 AM EST Office Visit [facility] [address] [place] [address] Cynthia English MD [address] [place] [address] documented as of this encounter Visit Diagnoses Diagnosis Eustachian tube dysfunction, bilateral Non-recurrent acute serous otitis media of both ears documented in this encounter Care Teams Cutter Helper Relationship Specialty Start Date End Date Gay De La Torre MD [facility] [place] [address] Referring Physician Family Medicine 07/18/24 documented as of this encounter
--- OUTSIDE RECORDS SUMMARY | 2025-03-09 22:34 | XMS_ITS | Encounter Summary ---
Author Organization [facility] Address [address] [facility] [place] [address] Care Team Providers Care Web Services Professional Name Role Phone Gay De La Torre MD Unavailable [phone] Encounter Details Date Type Department Care [...] 03/19/2025 10:20 AM EDT Office Visit [facility] [address] [email or web address] [address] [place] [address] Mary Grace Mejias MD 112 [facility] 130 [place] [address] 03/23/2025 11:30 AM EDT Office Visit [facility] [address] [facility] 150 [place] [address] Terence Blum MD 703 [facility] 150 [place] [address] 07/25/2025 11:00 AM EST Office Visit [facility] [address] [place] [address] Cynthia Englsih MD [address] [place] [address] documented as of this encounter Visit Diagnoses Not on filedocumented in this encounter Care Teams Web Services Professional Relationship Specialty Start Date End Date Gay De La Torre MD [address] [place] [address] Referring Physician Family Medicine 07/18/24 documented as of this encounter
--- OUTSIDE RECORDS SUMMARY | 2025-03-09 22:34 | XMS_ITS | Encounter Summary ---
Author Organization [facility] Address [address] [place] [address] Care Team Providers Care Marketing Automation Manager Name Role Phone Manuel Klein MD Unavailable [phone] Manuel Klein MD Primary Care Provider +-4 Manuel Klein MD Unavailable [phone] Source Comments In the event this information is protected by the Federal Confidentiality of Alcohol and Drug AbusePatient Records regulations: The Federal rules restrict any use of the information to criminally investigate or prosecute any alcohol or drug abuse patient.[facility] Encounter Details Date Type Department Care Team (Late st Contact Info) Description 03/18/2022 Get Medical Advice Allergy [address] [place] [phone] Misty Nelson MD [address] [place] [address] Test results Social History Tobacco Use [...] N ot on file 08/09/2020 Data from: https://www.neighborhoodatlas.medicine.[facility]/. Last address used for calculation Not [...] Description 03/21/2025 9:00 AM EDT Office Visit [facility] Laboratory [address] [facility] [address] 4 week follow up IVIG - pt to see MASON for this appt per Fara 03/21/2025 9:20 AM EDT Visit (SP) Office Hematology/Oncology [address] [facility] [address] Jose Cho MD [address] [facility] [address] 4 week follow up IVIG - pt to see MASON for this appt per Fara 03/21/2025 9:40 AM EDT Infusion Center Hematology/Oncology [address] [facility] [address] Gabbi, Chair 4 [address] [facility] [address] 4 week follow up IVIG - pt to see MASON for this appt per Fara 04/05/2025 2:00 PM [facility] Infusion Center Hematology/Oncology [address] [facility] [place] [address] BENLYSTA - 05/03/2025 2:00 PM [facility] Infusion Center Hematology/Oncology [address] [facility] [place] [address] BENLYSTA - documented as of this encounter Visit Diagnoses Not on filedocumented in this encounter Care Teams Marketing Automation Manager Relationship Specialty Start Date End Date Manuel Klein MD PCP - General Family Medicine 02/27/22 Manuel Klein MD Referring Family Medicine 02/12/22 Manuel Klein MD [address] [place] [address] Referring Family Medicine 07/06/24 documented as of this encounter
--- OUTSIDE RECORDS SUMMARY | 2025-03-09 22:34 | XMS_ITS | Encounter Summary ---
Author Organization [facility] Address [address] [place] [address] Care Team Providers Care Toll Settlement Clerk Name Role Phone Manuel Klein MD Unavailable [phone] Manuel Klein MD Primary Care Provider +-4 Manuel Klein MD Unavailable [phone] Source Comments In the event this information is protected by the Federal Confidentiality of Alcohol and Drug AbusePatient Records regulations: The Federal rules restrict any use of the information to criminally investigate or prosecute any alcohol or drug abuse patient.[facility] Encounter Details Date Type Department Care Team (Late st Contact Info) Description 07/09/2022 Patient Msg [facility] [address] [place] [address] Christie Phan MD [address] [place] [address] Appointment Follow-UP Social History Tobacco [...] N ot on file 08/09/2020 Data from: https://www.neighborhoodatlas.medicine.[facility]/. Last address used for calculation Not [...] Description 03/21/2025 9:00 AM EDT Office Visit [facility] Laboratory [address] [facility] [place] [address] 4 week follow up IVIG - pt to see MASON for this appt per Fara 03/21/2025 9:20 AM EDT Visit (SP) Office Hematology/Oncology [address] [place] [address] Jose Cho MD [address] [facility] [place] [address] 4 week follow up IVIG - pt to see MASON for this appt per Fara 03/21/2025 9:40 AM EDT Infusion Center Hematology/Oncology [address] [place] [address] [place] [address] Gabbi, Chair 4 [address] [facility] [place] [address] 4 week follow up IVIG - pt to see MASON for this appt per Fara 04/05/2025 2:00 PM EST Infusion Center Hematology/Oncology [address] [place] [address] [place] [address] BENLYSTA - 05/03/2025 2:00 PM [facility] Infusion Center Hematology/Oncology [address] [place] [address] [place] [address] BENLYSTA - documented as of this encounter Visit Diagnoses Not on filedocumented in this encounter Care Teams Toll Settlement Clerk Relationship Specialty Start Date End Date Manuel Klein MD PCP - General Family Medicine 02/27/22 Manuel Klein MD Referring Family Medicine 02/12/22 Manuel Klein MD [address] [place] [address] Referring Family Medicine 07/06/24 documented as of this encounter
--- OUTSIDE RECORDS SUMMARY | 2025-03-09 22:34 | XMS_ITS | Encounter Summary ---
Author Organization [facility] Address [address] [place] [address] Care Team Providers Care Industrial Controls Technician Name Role Phone Manuel Klein MD Unavailable [phone] Manuel Klein MD Primary Care Provider +-4 Manuel Klein MD Unavailable [phone] Source Comments In the event this information is protected by the Federal Confidentiality of Alcohol and Drug AbusePatient Records regulations: The Federal rules restrict any use of the information to criminally investigate or prosecute any alcohol or drug abuse patient.[facility] Encounter Details Date Type Department Care Team (Late st Contact Info) Description 03/18/2022 Get Medical Advice Hematology/Oncology [facility] [place] [address] Jose Cho MD [facility] [address] Blood work Social History Tobacco Use [...] on file 08/09/2020 Data from: https://www.neighborhoodatlas.[facility]/. Last address used for calculation Not [...] Description 03/21/2025 9:00 AM EDT Office Visit [facility] [place] Laboratory [address] [place] [address] 4 week follow up IVIG - pt to see MASON for this appt per Fara 03/21/2025 9:20 AM EDT Visit (SP) Office Hematology/Oncology [address] [place] [address] Jose Cho MD [address] [place] [address] 4 week follow up IVIG - pt to see MASON for this appt per Fara 03/21/2025 9:40 AM EDT Infusion Center Hematology/Oncology [address] [place] [address] Gabbi, Chair [address] [place] [address] 4 week follow up IVIG - pt to see MASON for this appt per Fara 04/05/2025 2:00 PM EST Infusion Center Hematology/Oncology [address] [place] [address] BENLYSTA - 05/03/2025 2:00 PM [facility] Infusion Center Hematology/Oncology [address] [place] [address] BENLYSTA - documented as of this encounter Visit Diagnoses Not on filedocumented in this encounter Care Teams Industrial Controls Technician Relationship Specialty Start Date End Date Manuel Klein MD PCP - General Family Medicine 02/27/22 Manuel Klein MD Referring Family Medicine 02/12/22 Manuel Klein MD [address] [place] [address] Referring Family Medicine 07/06/24 documented as of this encounter
--- OUTSIDE RECORDS SUMMARY | 2025-03-09 22:34 | XMS_ITS | Encounter Summary ---
Author Organization [facility] Address [address] [place] [address] Care Team Providers Care Intelligence Consultant Name Role Phone Manuel Klein MD Unavailable [phone] Manuel Klein MD Primary Care Provider +-4 Manuel Kelin MD Unavailable [phone] Source Comments In the event this information is protected by the Federal Confidentiality of Alcohol and Drug AbusePatient Records regulations: The Federal rules restrict any use of the information to criminally investigate or prosecute any alcohol or drug abuse patient.[facility] Encounter Details Date Type Department Care Team (Late st Contact Info) Description 02/27/2022 Get Medical Advice Infectious Disease [address] [place] [address] Tiffany Head DO [address] [place] [address] Blood work Social History Tobacco [...] file 08/09/2020 Data from: https://www.neighborhoodatlas.medicine.[facility]/. Last address used [...] Description 03/21/2025 9:00 AM EDT Office Visit [facility] [address] [place] [address] [place] [address] 4 week follow up IVIG - pt to see MASON for this appt per Fara 03/21/2025 9:20 AM EDT Visit (SP) Office Hematology/Oncology [address] [place] [address] Jose Cho MD [address] [place] [address] 4 week follow up IVIG - pt to see MASON for this appt per Fara 03/21/2025 9:40 AM EDT Infusion Center Hematology/Oncology [address] [place] [address] Gabbi, Chair [address] [place] [address] 4 week follow up IVIG - pt to see MASON for this appt per Fara 04/05/2025 2:00 PM EST Infusion Center Hematology/Oncology [address] [place] [address] [place] [address] BENLYSTA - 05/03/2025 2:00 PM [facility] Infusion Center Hematology/Oncology [address] [place] [address] [place] [address] BENLYSTA - documented as of this encounter Visit Diagnoses Not on filedocumented in this encounter Care Teams Intelligence Consultant Relationship Specialty Start Date End Date Manuel Klein MD PCP - General Family Medicine 02/27/22 Manuel Klein MD Referring Family Medicine 02/12/22 Manuel Klein MD [address] [place] [address] Referring Family Medicine 07/06/24 documented as of this encounter
--- OUTSIDE RECORDS SUMMARY | 2025-03-09 22:34 | XMS_ITS | Encounter Summary ---
Author Organization [facility] Address [address] [facility] [place] [address] Care Team Providers Care Bottle Cleaner Name Role Phone Gay De La Torre MD Unavailable [phone] Encounter Details Date Type Department Care Team (Late st Contact Info) Description 01/30/2025 Results Follow-Up [facility] [address] [employer] [place] [address] Sabi Barker LPN [address] [place] [address] Left breast US limited Social History Tobacco [...] [facility] [address] [place] [address] Mary Grace Mejias MD [address] [facility] [address] [place] [address] 03/23/2025 11:30 AM EDT Office Visit [facility] [address] [facility] [address] [place] [address] Terence Blum MD [address] [facility] [address] [place] [address] 07/25/2025 11:00 AM EST Office Visit [facility] [address] [place] [address] Cynthia English MD [address] [place] [address] documented as of this encounter Visit Diagnoses Not on filedocumented in this encounter Care Teams Bottle Cleaner Relationship Specialty Start Date End Date Gay De La Torre MD [address] [place] [address] Referring Physician Family Medicine 07/18/24 documented as of this encounter
--- OUTSIDE RECORDS SUMMARY | 2025-03-09 22:35 | XMS_ITS | Encounter Summary ---
Author Organization [facility] Address [address] [place] [address] Care Team Providers Care Death Surveys Coder Name Role Phone Manuel Klein MD Unavailable [phone] Manuel Klein MD Primary Care Provider +-4 Manuel Klein MD Unavailable [phone] Source Comments In the event this information is protected by the Federal Confidentiality of Alcohol and Drug AbusePatient Records regulations: The Federal rules restrict any use of the information to criminally investigate or prosecute any alcohol or drug abuse patient.[facility] Encounter Details Date Type Department Care Team (Late st Contact Info) Description 10/02/2022 Get Medical Advice Integrative and Lifestyle Medicine [address] [place] [address] Christie Phan MD [address] [address] Trulicity Social History Tobacco Use [...] is lower risk 4 09/24/2022 Data from: https://www.neighborhoodatlas.medicine.[facility]/. Last address used for calculation [address] 09/24/2022 Comments No Sex and Gender [...] Description 03/21/2025 9:00 AM EDT Office Visit [facility] [place] [address] 4 week follow up IVIG - pt to see MASON for this appt per Fara 03/21/2025 9:20 AM EDT Visit (SP) Office Hematology/[place] [address] [address] [place] [address] Jose Cho MD [address] [place] [address] 4 week follow up IVIG - pt to see MASON for this appt per Fara 03/21/2025 9:40 AM EDT Infusion Center Hematology/Oncology [address] [place] [address] Gabbi, Chair [address] [place] [address] 4 week follow up IVIG - pt to see MASON for this appt per Fara 04/05/2025 2:00 PM EST Infusion Center Hematology/Oncology [address] [place] [address] BENLYSTA - 05/03/2025 2:00 PM [facility] Infusion Center Hematology/Oncology [address] [place] [address] [place] [address] BENLYSTA - documented as of this encounter Visit Diagnoses Not on filedocumented in this encounter Care Teams Death Surveys Coder Relationship Specialty Start Date End Date Manuel Klein MD PCP - General Family Medicine 02/27/22 Manuel Klein MD Referring Family Medicine 02/12/22 Manuel Klein MD [address] [place] [address] Referring Family Medicine 07/06/24 documented as of this encounter
--- OUTSIDE RECORDS SUMMARY | 2025-03-09 22:35 | XMS_ITS | Encounter Summary ---
Author Organization [facility] Address [address] [place] [address] Care Team Providers Care Access Specialist Name Role Phone House, Charles Culver MD Primary Care Provider [phone] Gay De La Torre MD Unavailable Encounter Details Date Type Department Care Team (Late Contact Info) Description 10/19/2022 Abstract [facility] [address] [facility] [address] [place] [phone] Cynthia English MD [address] [facility] [address] [place] [address] Social History Tobacco Use Types Packs/Day Years [...] Visit [facility] [address] [facility] [address] [place] [address] Mary Grace Mejias MD [address] [facility] [address] [place] [address] 03/23/2025 11:30 AM EDT Office Visit [facility] [address] [place] [phone] Terence Blum MD [address] [place] [address] 07/25/2025 11:00 AM EST Office Visit [facility] [address] [place] [phone] Cynthia English MD [address] [place] [address] documented as of this encounter Visit Diagnoses Not on filedocumented in this encounter Care Teams Access Specialist Relationship Specialty Start Date End Date Charles Nicole MD PCP - General Family Medicine 02/09/24 07/17/24 Gay De La Torre MD [address] [place] [address] Referring Physician Family Medicine 07/18/24 documented as of this encounter
--- OUTSIDE RECORDS SUMMARY | 2025-03-09 22:35 | XMS_ITS | Clinical Summary ---
Author Organization [facility] Address [address] [place] [id number] Care Team Providers Care Skiver Hand Name Role Phone Manuel Klein MD Unavailable [phone] Manuel Klein MD Primary Care Provider [phone] Manuel Klein MD Unavailable [phone] Allergies Active Allergy Reactions Criticality Noted [...] erythematosus with other organ involvement (HCC),Encounter for senior living 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 [...] Active hydrOXYchloroQUI NE (PLAQUENIL) 200 mg tabletIndication s:CHRISTAIN positive,Other systemic lupus erythematosus with other organ [...] disease without gangrene 02/04/2023 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 02/04 [...] Care Team Description 02/21/2025 9:30 AM EDT [facility] Hematology/Oncology [address] [place] [address] [place] [address] Frequent infections (Primary Dx); Hypogammaglobulinemia (HCC); Bilateral leg weakness; Discoid lupus erythematosus 02/21/2025 9:00 AM EDT Visit (SP) Office Hematology/Oncology [address] [place] [address] [place] [address] Fara Lopez APRN.RETAIL AREA MANAGER Frequent infections (Primary Dx); Hypogammaglobulinemia (HCC); Bilateral leg weakness; Discoid lupus erythematosus; Vitamin B12 deficiency; Shortness of breath; Other iron deficiency anemia; Malaise and fatigue 02/21/2025 Get Medical Advice Hematology/Oncology [address] [place] [address] [place] [address] Provider, Ccf Blood work 02/21/2025 Telephone Cancer Appts [address] [place] [address] Fara Lopez APRN.RETAIL AREA MANAGER Results 02/12/2025 Telephone Hematology/Oncology [address] [place] [address] [place] [address] Enma Hamm RN Lab Orders 02/08/2025 2:00 PM EDT Infusion Center Hematology/Oncology [address] [place] [address] [place] [address] Elevated sed rate (Primary Dx); Megaloblastic anemia due to vitamin B12 deficiency; Other systemic lupus erythematosus with other organ involvement (HCC) 02/06/2025 Orders Only Hematology/Oncology [address] [place] [address] [place] [address] Jose Cho MD 01/24/2025 9:00 AM EDT Infusion Center Hematology/Oncology [address] [place] [address] [place] [address] Frequent infections (Primary Dx); Hypogammaglobulinemia (HCC); Bilateral leg weakness; Discoid lupus erythematosus; Elevated sed rate; Megaloblastic anemia due to vitamin B12 deficiency 01/24/2025 Orders Only Hematology/Oncology [address] [place] [address] [place] [address] Jose Cho MD Frequent infections (Primary Dx); Hypogammaglobulinemia (HCC); Bilateral leg weakness; Discoid lupus erythematosus 01/23/2025 Refill Rheumatology [address] [facility], [place] [id number] Snadra Park MD Refill Request 01/22/2025 Travel 01/18/2025 Telephone Rheumatology [address] [place] [address] Sandra Park MD Results 01/11/2025 2:00 PM EDT Infusion Center Hematology/Oncology [address] [facility] [place] [address] Other systemic lupus erythematosus with other organ involvement (HCC) (Primary Dx); Elevated LFTs; Anemia of chronic disease; Elevated sed rate; Elevated C-reactive protein (CRP); Vitamin D deficiency; Vitamin B12 deficiency; Screening-pulmonary TB 12/27/2024 9:00 AM EDT Infusion Center Hematology/Oncology [address] [facility] [place] [address] Frequent infections (Primary Dx); Hypogammaglobulinemia (HCC); Bilateral leg weakness; Discoid lupus erythematosus; Elevated sed rate; Megaloblastic anemia due to vitamin B12 deficiency 12/20/2024 Orders Only Hematology/Oncology [address] [facility] [place] [address] Neda Hill PA-C 12/19/2024 Orders Only Hematology/Oncology [address] [facility] [place] [place] [address] Neda Hill PAJuliusC 12/19/2024 Orders Only Hematology/Oncology [address] [facility] [place] [address] Rebekah Rojas APRN.RETAIL AREA MANAGER 12/14/2024 2:00 PM EDT Infusion Center Hematology/Oncology [address] [facility] [place] [address] Other systemic lupus erythematosus with other organ involvement (HCC) (Primary Dx) 12/14/2024 Abstract Neurology [address] [place] [address] [facility] CMN 12/14/2024 Orders Only Rheumatology [address] [place] [address] Sandra Park MD 12/12/2024 Travel from Last 3 Months Immunizations Immunization Administration Dates Next Due COVID-19 vaccine, age 12+ yr ([facility]) 02/23/2023 Family History Medical History [...] risk 4 09/24/2022 Data from: https://www.neighborhoodatlas.medicine.[email or web address].[email or web address]/. Last address used for calculation [address] [place] [address] 09/24/2022 Comments No Sex and Gender Information [...] Description 03/21/2025 9:00 AM EDT Office Visit [facility] [address] [place] [address] [place] [address] 4 week follow up IVIG - pt to see MASON for this appt per Fara 03/21/2025 9:20 AM EDT Visit (SP) Office Hematology/Oncology [address] [facility] [place] [address] Jose Cho MD [address] [facility] [place] [address] 4 week follow up IVIG - pt to see AMSON for this appt per Fara 03/21/2025 9:40 AM EDT Infusion Center Hematology/Oncology [address] [facility] [place] [address] Gabbi, Chair [address] [facility] [place] [address] 4 week follow up IVIG - pt to see MASON for this appt per Fara 04/05/2025 2:00 PM EST Infusion Center Hematology/Oncology [address] [place] [address] [place] [address] BENLYSTA - 05/03/2025 2:00 PM [facility] Infusion Center Hematology/Oncology [address] [place] [address] [place] [address] BENLYSTA - Health Maintenance Due Date Last [...] Routine 01/11/2025 1:48 PM EDT Elevated LFTs from Last 3 Months Results * VITAMIN B12 (02/21/2025 8:51 AM EDT) Only the most recent of2 resultswithin the time period is included. Vitamin B12 694 232 - 1,245 pg/mL 02/21/2025 10:05 PM EDT [facility] Blood BLOOD SPECIMEN / Unknown Venipuncture / Unknown 02/21/2025 8:51 AM EDT 02/21/2025 8:51 AM EDT us Fara Lopez PEELED POTATO INSPECTOR.RETAIL AREA MANAGER LABORATORY Final Resul t [facility] [address] * (ABNORMAL) IRON AND TIBC (02/21/2025 8:51 AM EDT) Iron 156 41 - 186 ug/dL 02/21/2025 9:46 PM EDT [facility] TIBC 443(H) 232 - 386 ug/dL 02/21/2025 9:46 PM EDT [facility] Transferrin Saturation 35.2 15.0 - 57.0 % 02/21/2025 9:46 PM EDT [facility] Blood BLOOD SPECIMEN / Unknown Venipuncture / Unknown 02/21/2025 8:51 AM EDT 02/21/2025 8:51 AM EDT Fara Lopez PEELED POTATO INSPECTOR.RETAIL AREA MANAGER LABORATORY Final Resul t Performing Organization Address [facility] de Phone Number [facility] [address] [place] [address], [place] * (ABNORMAL) IMMUNOGLOBULINS,IGG,IGA,IGM (02/21/2025 8:51 AM EDT) IgG 610(L) 700 - 1,600 mg/dL 02/21/2025 6:21 PM EDT [facility] IgA 184 70 - 400 mg/dL 02/21/2025 6:21 PM EDT [facility] IgM 454(H) 40 - 230 mg/dL 02/21/2025 6:21 PM EDT [facility] Blood BLOOD SPECIMEN / Unknown Venipuncture / Unknown 02/21/2025 8:51 AM EDT 02/21/2025 8:51 AM EDT Fara Lopez PEELED POTATO INSPECTOR.RETAIL AREA MANAGER LABORATORY Final Resul t Performing Organization Address [facility] de Phone Number [facility] [address] [place] [address], [place] * FOLATE, SERUM (02/21/2025 8:51 AM EDT) Folate >20.0 >4.7 ng/mL 02/21/2025 10:05 PM EDT [facility] Comment: A result of > 20 ng/mL is not necessarily indicative of a pathologic or treatable condition: it reflects a limitation of the test methodology. Assay reference range: 4.8 to 24.2 ng/mL. Suitable for detection of folate deficiency. Reference: Folate III (Folate III) [package insert V 1.0 Japanese]. [facility], [place], [place]: March 2015. Blood BLOOD SPECIMEN / Unknown Venipuncture / Unknown 02/21/2025 8:51 AM EDT 02/21/2025 8:51 AM EDT Fara Lopez PEELED POTATO INSPECTOR.RETAIL AREA MANAGER LABORATORY Final Resul t Performing Organization Address City/[facility]/ZIP Co de Phone Number [facility] [address] [place] [address], [place] * FERRITIN (02/21/2025 8:51 AM EDT) Ferritin 83.6 14.7 - 205.1 ng/mL 02/21/2025 10:05 PM EDT [facility] Blood BLOOD SPECIMEN / Unknown Venipuncture / Unknown 02/21/2025 8:51 AM EDT 02/21/2025 8:51 AM EDT Fara Lopez APRN.RETAIL AREA MANAGER LABORATORY Final Resul t Performing Organization Address [facility] de Phone Number [facility] [place] [address], [place] * (ABNORMAL) COMPREHENSIVE METABOLIC PANEL (02/21/2025 8:51 AM EDT) Only the most recent of2 resultswithin the time period is included. Protein, Total 7.6 6.3 - 8.0 g/dL 02/21/2025 9:45 AM EDT [facility] Albumin 4.3 3.9 - 4.9 g/dL 02/21/2025 9:45 AM EDT [facility] Calcium, Total 10.2 8.5 - 10.2 mg/dL 02/21/2025 9:45 AM EDT [facility] Bilirubin, Total 0.3 0.2 - 1.3 mg/dL 02/21/2025 9:45 AM EDT [facility] Alkaline Phosphatase 83 34 - 123 U/L 02/21/2025 9:45 AM EDT [facility] AST 20 13 - 35 U/L 02/21/2025 9:45 AM EDT [facility] ALT 49(H) 7 - 38 U/L 02/21/2025 9:45 AM [facility] Glucose 248(H) 74 - 99 mg/dL 02/21/2025 9:45 AM [facility] Comment: The Stateless Diabetes Association (ADA) provides guidance for cutoff [...] Standards of Medical Care in Diabetes 2016, Stateless Diabetes Association. Diabetes Care. 2016.39(Suppl 1). BUN 16 7 - 21 mg/dL 02/21/2025 9:45 AM [facility] Creatinine 0.49(L) 0.58 - 0.96 mg/dL 02/21/2025 9:45 AM [facility] Sodium 138 136 - 144 mmol/L 02/21/2025 9:45 AM [facility] Potassium 4.1 3.7 - 5.1 mmol/L 02/21/2025 9:45 AM [facility] Chloride 101 98 - 107 mmol/L 02/21/2025 9:45 AM [facility] CO2 20(L) 22 - 30 mmol/L 02/21/2025 9:45 AM [facility] Anion Gap 17(H) 8 - 15 mmol/L 02/21/2025 9:45 AM [facility] Estimated Glomerular Filtration Rate 119 >=60 mL/min/1. 73m 02/21/2025 9:45 AM [facility] Comment:Estimated Glomerular Filtration Rate (eGFR) [...] 02/21/2025 8:51 AM EDT us Fara Lopez PEELED POTATO INSPECTOR.RETAIL AREA MANAGER LABORATORY Final Resul t [facility] [address] [place] [address] * (ABNORMAL) COMPLETE BLOOD COUNT AND DIFFERENTIAL (02/21/2025 8:51 AM EDT) WBC 13.16(H) 3.70 - 11.00 k/uL 02/21/2025 8:59 AM EDT [facility] RBC 4.77 3.90 - 5.20 m/uL 02/21/2025 8:59 AM EDT [facility] Hemoglobin 15.1 11.5 - 15.5 g/dL 02/21/2025 8:59 AM EDT [facility] Hematocrit 46.0 36.0 - 46.0 % 02/21/2025 8:59 AM EDT [facility] MCV 96.4 80.0 - 100.0 fL 02/21/2025 8:59 AM EDT [facility] MCH 31.7 26.0 - 34.0 pg 02/21/2025 8:59 AM EDT [facility] MCHC 32.8 30.5 - 36.0 g/dL 02/21/2025 8:59 AM EDT [facility] RDW-CV 14.3 11.5 - 15.0 % 02/21/2025 8:59 AM EDT [facility] Platelet Count 305 150 - 400 k/uL 02/21/2025 8:59 AM EDT [facility] MPV 9.9 9.0 - 12.7 fL 02/21/2025 8:59 AM EDT [facility] Neutrophils % 75.5 % 02/21/2025 8:59 AM EDT [facility] Abs Neut 9.94(H) 1.45 - 7.50 k/uL 02/21/2025 8:59 AM EDT [facility] Lymphocytes % 14.4 % 02/21/2025 8:59 AM EDT [facility] Abs Lymph 1.89 1.00 - 4.00 k/uL 02/21/2025 8:59 AM EDT [facility] Monocytes % 7.0 % 02/21/2025 8:59 AM EDT [facility] Abs Walton 0.92(H) <0.87 k/uL 02/21/2025 8:59 AM EDT [facility] Eosinophils % 0.8 % 02/21/2025 8:59 AM EDT [facility] Abs Eosin 0.11 <0.46 k/uL 02/21/2025 8:59 AM EDT [facility] Basophils % 0.7 % 02/21/2025 8:59 AM EDT [facility] Abs Baso 0.09 <0.11 k/uL 02/21/2025 8:59 AM EDT [facility] Immature Granulocytes % 1.6 % 02/21/2025 8:59 AM EDT [facility] Abs Immature Gran 0.21(H) <0.10 k/uL 02/21/2025 8:59 AM EDT [facility] NRBC 0.0 /100 WBC 02/21/2025 8:59 AM EDT [facility] Absolute nRBC <0.01 <0.01 k/uL 02/21/2025 8:59 AM EDT [facility] Diff Type Auto 02/21/2025 8:59 AM EDT [facility] Blood BLOOD SPECIMEN / Unknown Venipuncture / Unknown 02/21/2025 8:51 AM EDT 02/21/2025 8:51 AM EDT Fara Lopez PEELED POTATO INSPECTOR.RETAIL AREA MANAGER LABORATORY Final Resul t Performing Organization Address City/[facility]/ZIP Co de Phone Number [facility] [address] [place] [address] * BLOOD TB SCREEN (01/11/2025 1:48 PM EDT) TB Nil 0.03 <=8.00 IU/mL 01/13/2025 9:22 PM EDT [facility] TB1 Ag minus Nil 0.01 <0.35 IU/mL 01/13/2025 9:22 PM EDT [facility] TB2 Ag minus Nil 0.01 <0.35 IU/mL 01/13/2025 9:22 PM EDT [facility] TB Result Negative 01/13/2025 9:22 PM EDT [facility] Mitogen minus Nil >9.97 >=0.50 IU/mL 01/13/2025 9:22 PM EDT [facility] TB Gamma Interpretation Infection with M. tuberculosis complex is unlikely. If latent tuberculosis infection is highly suspected, a negative result does not rule out the infection. Specimens from immunocompromised patients and those <5 years of age may show false negative results. In case of a contact investigation, please repeat 8-12 weeks after a known exposure. 01/13/2025 9:22 PM EDT [facility] Blood BLOOD SPECIMEN / Unknown Venipuncture / Unknown 01/11/2025 1:48 PM EDT 01/11/2025 2:06 PM EDT Sandra Park MD LABORATORY Final Result [facility] [address] [address], * VITAMIN D 25 HYDROXY (01/11/2025 1:48 PM EDT) Vitamin D 25 Hydroxy 32.2 31.0 - 80.0 ng/mL 01/12/2025 1:27 PM EDT [facility] Blood BLOOD SPECIMEN / Unknown Venipuncture / Unknown 01/11/2025 1:48 PM EDT 01/11/2025 2:06 PM EDT us Sandra Park MD LABORATORY Final Result [facility] [address] [place] [address], [place] * (ABNORMAL) SEDIMENTATION RATE, WESTERGREN (01/11/2025 1:48 PM EDT) [facility] Sed Rate, Westergren 34(H) 0 - 20 mm/hr 01/12/2025 1:02 AM EDT [facility] Blood BLOOD SPECIMEN / Unknown Venipuncture / Unknown 01/11/2025 1:48 PM EDT 01/11/2025 2:06 PM EDT us Sandra Park MD LABORATORY Final Result Performing Organization Address City/[facility]/ZIP Co de Phone Number [facility] [address] [place] [address], [place] * HEPATITIS B SURFACE ANTIGEN (01/11/2025 1:48 PM EDT) [facility] HBsAg Negative Negative 01/12/2025 11:45 AM EDT [facility] Blood BLOOD SPECIMEN / Unknown Venipuncture / Unknown 01/11/2025 1:48 PM EDT 01/11/2025 2:06 PM EDT us Sandra Park MD LABORATORY Final Result Performing Organization Address City/[facility]/ZIP Co de Phone Number [facility] [address] [place] [id number], [place] * HEPATITIS B SURFACE ANTIBODY (01/11/2025 1:48 PM EDT) Pathologist [facility] Hep B Surface Ab, Qual Positive 01/12/2025 11:44 AM EDT [facility] Comment:Consistent with sero logical evidence of immunity to Hepatitis B Virus. Hep B Surface Ab Quant 177.77 mIU/mL 01/12/2025 11:44 AM EDT [facility] Comment: <8 mIU/mL: No serological [...] MD LABORATORY Final Result Performing Organization Address [facility] Co de Phone Number [facility] [address] [place] [address], [place] * HEPATITIS B CORE ANTIBODY TOTAL (01/11/2025 1:48 PM EDT) Pathologist [facility] Hepatitis B Core Ab, Total Negative Negative 01/12/2025 11:47 AM EDT [facility] Comment:No evidence of curre nt or past infection with Hepatitis B virus. Should recent infection be suspected, repeat testing may be considered 3-4 weeks after this draw. Blood BLOOD SPECIMEN / Unknown Venipuncture / Unknown 01/11/2025 1:48 PM EDT 01/11/2025 2:06 PM EDT Sandra Park MD LABORATORY Final Result Performing Organization Address City/[facility]/ZIP Co de Phone Number [facility] [address] [facility] [place] [address], [place] * (ABNORMAL) COMPLETE BLOOD COUNT (01/11/2025 1:48 PM EDT) Pathologist [facility] WBC 12.61(H) 3.70 - 11.00 k/uL 01/11/2025 2:10 PM EDT [facility] RBC 4.29 3.90 - 5.20 m/uL 01/11/2025 2:10 PM EDT [facility] Hemoglobin 13.8 11.5 - 15.5 g/dL 01/11/2025 2:10 PM EDT [facility] Hematocrit 41.5 36.0 - 46.0 % 01/11/2025 2:10 PM EDT [facility] MCV 96.7 80.0 - 100.0 fL 01/11/2025 2:10 PM EDT [facility] MCH 32.2 26.0 - 34.0 pg 01/11/2025 2:10 PM EDT [facility] MCHC 33.3 30.5 - 36.0 g/dL 01/11/2025 2:10 PM EDT [facility] RDW-CV 14.5 11.5 - 15.0 % 01/11/2025 2:10 PM EDT [facility] Platelet Count 265 150 - 400 k/uL 01/11/2025 2:10 PM EDT [facility] MPV 10.6 9.0 - 12.7 fL 01/11/2025 2:10 PM EDT [facility] Absolute nRBC <0.01 <0.01 k/uL 01/11/2025 2:10 PM EDT [facility] Blood BLOOD SPECIMEN / Unknown Venipuncture / Unknown 01/11/2025 1:48 PM EDT 01/11/2025 2:06 PM EDT us Sandra Park MD LABORATORY Final Result [facility] [address] [place] [address] * C-REACTIVE PROTEIN (01/11/2025 1:48 PM EDT) CRP <0.3 <0.9 mg/dL 01/12/2025 3:28 AM EDT [facility] Blood BLOOD SPECIMEN / Unknown Venipuncture / Unknown 01/11/2025 1:48 PM EDT 01/11/2025 2:06 PM EDT Sandra Park MD LABORATORY Final Result [facility] [address] [place] [phone], * HEPATITIS C ANTIBODY IA WITH CONFIRMATION (01/11/2025 1:48 PM EDT) [facility] Signature Hep C Antibody IA Negative Negative 01/12/2025 11:34 AM EDT [facility] Comment:The result suggests no evidence of infection with Hepatitis C virus. Should recent infection be suspected, repeat testing may be considered 4-6 weeks after this draw. Blood BLOOD SPECIMEN / Unknown Venipuncture / Unknown 01/11/2025 1:48 PM EDT 01/11/2025 2:06 PM EDT Sandra Park MD LABORATORY Final Result Performing Organization Address City/[facility] Co de Phone Number [facility] [address] [place] [phone], from Last 3 Months Insurance [employer] [facility] Care Teams Skiver Hand Relationship Specialty Start Date End Date Manuel Klein MD PCP - General Family Medicine 02/27/22 Manuel Klein MD Referring Family Medicine 02/12/22 Manuel Klein MD [address] [place] [id number] Referring Family Medicine 07/06/24
--- OUTSIDE RECORDS SUMMARY | 2025-03-09 22:35 | XMS_ITS | Encounter Summary ---
Author Organization [facility] Address [address] [place] [id number] Care Team Providers Care Water Attendant Name Role Phone Manuel Klein MD Unavailable [phone] Manuel Klein MD Primary Care Provider [phone] Manuel Klein MD Unavailable [phone] Source Comments In the event this information is protected by the Federal Confidentiality of Alcohol and Drug AbusePatient Records regulations: The Federal rules restrict any use of the information to criminally investigate or prosecute any alcohol or drug abuse patient.[facility] Encounter Details Date Type Department Care Team (Late st Contact Info) Description 02/23/2024 Patient Msg Rheumatology [address] [place], [place] [id number] Sandra Park MD [address] [place] [address] Appointment Request Social History Tobacco [...] 09/24/2022 Data from: https://www.neighborhoodatlas.medicine.[email or web address]/. Last address used for calculation [address] 09/24/2022 Comments No Sex and Gender [...] Description 03/21/2025 9:00 AM EDT Office Visit [facility] [address] [place] [address] [place] [address] 4 week follow up IVIG - pt to see MASON for this appt per Fara 03/21/2025 9:20 AM EDT Visit (SP) Office Hematology/Oncology [address] [place] [address] Jose Cho MD [address] [facility] [place] [address] 4 week follow up IVIG - pt to see MASON for this appt per Fara 03/21/2025 9:40 AM EDT Infusion Center Hematology/Oncology [address] [facility] [place] [address] Gabbi, Chair [address] [facility] [place] [address] 4 week follow up IVIG - pt to see MASON for this appt per Fara 04/05/2025 2:00 PM EST Infusion Center Hematology/Oncology [address] [facility] [place] [address] BENLYSTA - 05/03/2025 2:00 PM [facility] Infusion Center Hematology/Oncology [address] [place] [address] [place] [address] BENLYSTA - documented as of this encounter Visit Diagnoses Not on filedocumented in this encounter Care Teams Water Attendant Relationship Specialty Start Date End Date Manuel Klein MD PCP - General Family Medicine 02/27/22 Manuel Klein MD Referring Family Medicine 02/12/22 Manuel Klein MD [facility] [place] [address] Referring Family Medicine 07/06/24 documented as of this encounter
--- OUTSIDE RECORDS SUMMARY | 2025-03-09 22:35 | XMS_ITS | Encounter Summary ---
Author Organization [facility] Address [facility] [place] [address] Care Team Providers Care Rn Referral Name Role Phone Manuel Klein MD Unavailable [phone] Manuel Klein MD Primary Care Provider +-4 Manuel Klein MD Unavailable [phone] Source Comments In the event this information is protected by the Federal Confidentiality of Alcohol and Drug AbusePatient Records regulations: The Federal rules restrict any use of the information to criminally investigate or prosecute any alcohol or drug abuse patient.[facility] Encounter Details Date Type Department Care Team (Late st Contact Info) Description 03/04/2023 Patient [facility] HB-3 [address] [place] [address] Provider, Ccf Benlysta Injection Video Social History [...] lower risk 4 09/24/2022 Data from: https://www.neighborhoodatlas.medicine.[facility].edu/. Last address used for calculation [address] 09/24/2022 Comments No Sex and Gender [...] Description 03/21/2025 9:00 AM EDT Office Visit [facility] [place] [facility] [address] [place] [address] 4 week follow up IVIG - pt to see MASON for this appt per Fara 03/21/2025 9:20 AM EDT Visit (SP) Office Hematology/Oncology [address] [place] [address] Jose Cho MD [address] [place] [address] 4 week follow up IVIG - pt to see MASON for this appt per Fara 03/21/2025 9:40 AM EDT Infusion Center Hematology/Oncology [address] [place] [address] Gabbi, Chair [address] [place] [address] 4 week follow up IVIG - pt to see MASON for this appt per Fara 04/05/2025 2:00 PM EST Infusion Center Hematology/Oncology [address] [place] [address] BENLYSTA - 05/03/2025 2:00 PM [facility] Infusion Center Hematology/Oncology [address] [place] [address] [place] [address] BENLYSTA - documented as of this encounter Visit Diagnoses Not on filedocumented in this encounter Care Teams Rn Referral Relationship Specialty Start Date End Date Manuel Klein MD PCP - General Family Medicine 02/27/22 Manuel Klein MD Referring Family Medicine 02/12/22 Manuel Klein MD [address] [place] [address] Referring Family Medicine 07/06/24 documented as of this encounter
--- OUTSIDE RECORDS SUMMARY | 2025-03-09 22:35 | XMS_ITS | Encounter Summary ---
Author Organization [facility] Address [address] [place] [address] Care Team Providers Care Stock Feeder Name Role Phone Aime Davidson MD, Lui Nunez Primary Care Provid er Gay De La Torre(Historical) HIDE SPLITTER.BID ANALYST Primary Care Provider Unavailable Manuel Klein MD Unavailable [phone] Manuel Klein MD Primary Care Provider [phone] Manuel Klein MD Unavailable [phone] Source Comments In the event this information is protected by the Federal Confidentiality of Alcohol and Drug AbusePatient Records regulations: The Federal rules restrict any use of the information to criminally investigate or prosecute any alcohol or drug abuse patient.[facility] Encounter Details Date Type Department Care Team (Late st Contact Info) Description 12/25/2014 Get Medical Advice Internal Medicine [facility] [place] [address] Lui Salomon Jr., MD [address] [address] Test Result Question Social History [...] Description 03/21/2025 9:00 AM EDT Office Visit [facility] [place] [facility] [place] [address] 4 week follow up IVIG - pt to see MASON for this appt per Fara 03/21/2025 9:20 AM EDT Visit (SP) Office Hematology/Oncology [address] [place] [address] Jose Cho MD [address] [place] [address] [place] [address] 4 week follow up IVIG - pt to see MASON for this appt per Fara 03/21/2025 9:40 AM EDT Infusion Center Hematology/Oncology [address] [facility] [address] Gabbi, Chair [address] [place] [address] 4 week follow up IVIG - pt to see MASON for this appt per Fara 04/05/2025 2:00 PM EST Infusion Center Hematology/Oncology [address] [facility] [place] [address] BENLYSTA - 05/03/2025 2:00 PM EST Infusion Center Hematology/Oncology [address] [facility] [place] [address] BENLYSTA - documented as of this encounter Visit Diagnoses Not on filedocumented in this encounter Care Teams Stock Feeder Relationship Specialty Start Date End Date Lui Salomon Jr., MD PCP - General Internal Medicine 05/31/14 07/08/20 Gay De La Torre(Historical), HIDE SPLITTER.BID ANALYST PCP - General Family Medicine 10/24/21 02/26/22 Manuel Klein MD PCP - General Family Medicine 02/27/22 Manuel Klein MD Referring Family Medicine 02/12/22 Manuel Klein MD [address] [place] [facility] [place] [address] Referring Family Medicine 07/06/24 documented as of this encounter
--- OUTSIDE RECORDS SUMMARY | 2025-03-09 22:35 | XMS_ITS | Encounter Summary ---
Author Organization [facility] Address [address] [place] [address] Care Team Providers Care Bias Cutting Machine Operator Vertical Name Role Phone Manuel Klein MD Unavailable [phone] Manuel Klein MD Primary Care Provider +-4 Manuel Klein MD Unavailable [phone] Source Comments In the event this information is protected by the Federal Confidentiality of Alcohol and Drug AbusePatient Records regulations: The Federal rules restrict any use of the information to criminally investigate or prosecute any alcohol or drug abuse patient.[facility] Encounter Details Date Type Department Care Team (Late st Contact Info) Description 02/21/2025 Get Medical Advice Hematology/Oncology [address] [place] [address] [place] [address] Provider, Ccf Blood work Social History Tobacco [...] Data from: https://www.neighborhoodatlas.medicine.[facility]/. Last address used for calculation [address] 09/24/2022 Comments No Sex and Gender [...] Description 03/21/2025 9:00 AM EDT Office Visit [facility] [place] [facility] [address] [place] [address] 4 week follow up IVIG - pt to see MASON for this appt per Fara 03/21/2025 9:20 AM EDT Visit (SP) Office Hematology/Oncology [address] [place] [address] Jose Cho MD [address] [place] [address] 4 week follow up IVIG - pt to see MASON for this appt per Fara 03/21/2025 9:40 AM EDT Infusion Center Hematology/Oncology [address] [place] [address] Gabbi, Chair [address] [place] [address] 4 week follow up IVIG - pt to see MASON for this appt per Fara 04/05/2025 2:00 PM EST Infusion Center Hematology/Oncology [address] [place] [address] BENLYSTA - 05/03/2025 2:00 PM [facility] Infusion Center Hematology/Oncology [address] [place] [place] [address] BENLYSTA - documented as of this encounter Visit Diagnoses Not on filedocumented in this encounter Care Teams Bias Cutting Machine Operator Vertical Relationship Specialty Start Date End Date Manuel Klein MD PCP - General Family Medicine 02/27/22 Manuel Klein MD Referring Family Medicine 02/12/22 Manuel Klein MD [facility] [place] [address] Referring Family Medicine 07/06/24 documented as of this encounter
--- OUTSIDE RECORDS SUMMARY | 2025-03-09 22:35 | XMS_ITS | Encounter Summary ---
Author Organization [facility] Address [id number] [address] [place] [address] Care Team Providers Care Chief Specialist Leed Name Role Phone Unavailable Primary Care Provider Unavailabl e Encounter Details Date Type Department Care Team (Late st Contact Info) Description 04/05/2024 Orders Only [facility] [address] [place] [address] Ref Prov, [place] [address] Social History Tobacco Use Types Packs/Day Years [...]
--- OUTSIDE RECORDS SUMMARY | 2025-03-09 22:35 | XMS_ITS | Encounter Summary ---
Author Organization [facility] Address [id number] [address] [place] [address] Care Team Providers Care Tarring Machine Operator Name Role Phone Unavailable Primary Care Provider Unavailabl e Encounter Details Date Type Department Care Team (Late st Contact Info) Description 05/05/2024 Orders Only [facility] [address] [place] [address] Felicia Payne CMA Cold extremities; Pain of lower extremity, unspecified laterality; Systemic lupus erythematosus ([facility]) Social History Tobacco Use Types Packs/Day Years [...]
--- OUTSIDE RECORDS SUMMARY | 2025-03-09 22:35 | XMS_ITS | Encounter Summary ---
Author Organization [facility] Address [address] [place] [address] Care Team Providers Care Marketing Professor Name Role Phone Manuel Klein MD Unavailable [phone] Manuel Klein MD Primary Care Provider +-4 Manuel Klein MD Unavailable [phone] Source Comments In the event this information is protected by the Federal Confidentiality of Alcohol and Drug AbusePatient Records regulations: The Federal rules restrict any use of the information to criminally investigate or prosecute any alcohol or drug abuse patient.[facility] Encounter Details Date Type Department Care Team (Late st Contact Info) Description 10/16/2022 Get Medical Advice Integrative and Lifestyle Medicine [address] [place] [address] Christie Phan MD [address], [place] [address] Trulicity Social History Tobacco Use [...] is lower risk 4 09/24/2022 Data from: https://www.neighborhoodatlas.medicine.[facility]/. Last address used for calculation [address] 09/24/2022 Comments No Sex and Gender [...] Description 03/21/2025 9:00 AM EDT Office Visit [facility] [place] [address] 4 week follow up IVIG - pt to see MASON for this appt per Fara 03/21/2025 9:20 AM EDT Visit (SP) Office Hematology/[place] [address] [place] [address] Jose Cho MD [address] [facility] [place] [address] 4 week follow up IVIG - pt to see MASON for this appt per Fara 03/21/2025 9:40 AM EDT Infusion Center Hematology/Oncology [address] [facility] [place] [address] Gabbi, Chair 4 [address] [facility] [place] [address] 4 week follow up IVIG - pt to see MASON for this appt per Fara 04/05/2025 2:00 PM EST Infusion Center Hematology/Oncology [address] [facility] [place] [address] BENLYSTA - 05/03/2025 2:00 PM [facility] Infusion Center Hematology/Oncology [address] [place] [address] [place] [address] BENLYSTA - documented as of this encounter Visit Diagnoses Not on filedocumented in this encounter Care Teams Marketing Professor Relationship Specialty Start Date End Date Manuel Klein MD PCP - General Family Medicine 02/27/22 Manuel Klein MD Referring Family Medicine 02/12/22 Manuel Klein MD [address] [place] [address] Referring Family Medicine 07/06/24 documented as of this encounter
--- OUTSIDE RECORDS SUMMARY | 2025-03-09 22:35 | XMS_ITS | Encounter Summary ---
Author Organization [facility] Address [address] [place] [address] Care Team Providers Care Soa Architect Name Role Phone Manuel Klein MD Unavailable [phone] Manuel Klein MD Primary Care Provider +-4 Manuel Klein MD Unavailable [phone] Source Comments In the event this information is protected by the Federal Confidentiality of Alcohol and Drug AbusePatient Records regulations: The Federal rules restrict any use of the information to criminally investigate or prosecute any alcohol or drug abuse patient.[facility] Reason for Visit * Reason Onset Date Comments Refill Request 01/23/2025 Encounter Details Date Type Department Care Team (Late st Contact Info) Description 01/23/2025 Refill Rheumatology [address] [place], [place] [id number] Sandra Park MD [address] [place] [address] Refill Request Social History Tobacco [...] risk 4 09/24/2022 Data from: https://www.neighborhoodatlas.medicine.[facility]/. Last address used for calculation [address] 09/24/2022 Comments No Sex and Gender [...] EDT Office Visit [facility] [address] [place] [address] [place] [address] 4 week follow up IVIG - pt to see MASON for this appt per Fara 03/21/2025 9:20 AM EDT Visit (SP) Office Hematology/Oncology [address] [place] [address] Jose Cho MD [address] [place] [address] 4 week follow up IVIG - pt to see MASON for this appt per Fara 03/21/2025 9:40 AM EDT Infusion Center Hematology/Oncology [address] [place] [address] Gabbi, Chair [address] [place] [address] 4 week follow up IVIG - pt to see MASON for this appt per Fara 04/05/2025 2:00 PM [facility] Infusion Center Hematology/Oncology [address] [facility] [address] BENLYSTA - 05/03/2025 2:00 PM [facility] Infusion Center Hematology/Oncology [address] [place] [address] BENLYSTA - documented as of this encounter Visit Diagnoses Diagnosis CHRISTIAN positive Other and unspecified nonspecific immunological findings Other systemic lupus erythematosus with other organ involvement (HCC) documented in this encounter Care Teams Soa Architect Relationship Specialty Start Date End Date Manuel Klein MD PCP - General Family Medicine 02/27/22 Manuel Klein MD Referring Family Medicine 02/12/22 Manuel Klein MD [address] [place] [address] Referring Family Medicine 07/06/24 documented as of this encounter
--- OUTSIDE RECORDS SUMMARY | 2025-03-09 22:35 | XMS_ITS | Encounter Summary ---
Author Organization [facility] Address [address] [place] [address] Care Team Providers Care Anesthesiology Teacher Name Role Phone Manuel Klein MD Unavailable [phone] Manuel Klein MD Primary Care Provider +-4 Manuel Klein MD Unavailable [phone] Source Comments In the event this information is protected by the Federal Confidentiality of Alcohol and Drug AbusePatient Records regulations: The Federal rules restrict any use of the information to criminally investigate or prosecute any alcohol or drug abuse patient.[facility] Reason for Visit * Reason Comments Results Encounter Details Date Type Department Care Team (Late st Contact Info) Description 02/21/2025 Telephone Cancer Appts [facility] [place] [address] Fara Lopez APRN.[facility] [address] [place] [address] Results Social History Tobacco Use Types Packs/Day [...] is lower risk 4 09/24/2022 Data from: https://www.neighborhoodatlas.medicine.[facility]/. Last address used for calculation [address] 09/24/2022 Comments No Sex and Gender [...] AM EDT Pt aware of results via [employer]. Questions asked in [employer] encounter, response sent by Fara. RTC with [facility], 4 weeks Enma Hamm RN * Telephone Encounter - Sherrie Cortes - 02/21/2025 11:55 AM EDT Images from the original note were not included. documented in this encounter Plan of Treatment Upcoming Encounters Date Type Department Care Team (Latest Contact Info) Description 03/21/2025 9:00 AM EDT Office Visit [facility] [address] [facility] [address] 4 week follow up IVIG - pt to see WISAM for this appt per Fara 03/21/2025 9:20 AM EDT Visit (SP) Office Hematology/Oncology [address] [facility] [place] [address] Jose Cho MD [address] [facility] [place] [address] 4 week follow up IVIG - pt to see WISAM for this appt per Fara 03/21/2025 9:40 AM EDT Infusion Center Hematology/Oncology [address] [facility] [place] [address] Gabbi, Chair [address] [facility] [place] [address] 4 week follow up IVIG - pt to see WISAM for this appt per Fara 04/05/2025 2:00 PM EST Infusion Center Hematology/Oncology [address] [place] [address] BENLYSTA - 05/03/2025 2:00 PM EST Infusion Center Hematology/Oncology [address] [facility] [place] [address] BENLYSTA - documented as of this encounter Visit Diagnoses Not on filedocumented in this encounter Care Teams Anesthesiology Teacher Relationship Specialty Start Date End Date Manuel Klein MD PCP - General Family Medicine 02/27/22 Manuel Klein MD Referring Family Medicine 02/12/22 Manuel Klein MD [address] [place] [address] Referring Family Medicine 07/06/24 documented as of this encounter
--- OUTSIDE RECORDS SUMMARY | 2025-03-09 22:35 | XMS_ITS | Clinical Summary ---
Author Organization [facility] Address [id number] [address] [place] [address] Care Team Providers Care Marker Machine Attendant Name Role Phone Unavailable Primary Care Provider [...] Vaccines (1 - Tdap) 10/05/1999 COVID-19 Vaccine (2024- 6 season) 2025 02/23/2023, 02/08/2022, 05/26/2021, Additional history exists Influenza Vaccine 01/22/2025 Adult BMI Screening 04/06/2025 04/06/2024 Tobacco Screening 04/06/2025 04/06/2024 Pap Smear 09/10/2025 09/10/2022 Medical Devices Not on file Insurance [employer]
--- OUTSIDE RECORDS SUMMARY | 2025-03-09 22:35 | XMS_ITS | Encounter Summary ---
Author Organization [facility] Address [facility] [place] [address] Care Team Providers Care Vocational Childcare Teacher Name Role Phone Manuel Klein MD Unavailable [phone] Manuel Klein MD Primary Care Provider +-4 Manuel Klein MD Unavailable Source Comments In the event this information is protected by the Federal Confidentiality of Alcohol and Drug AbusePatient Records regulations: The Federal rules restrict any use of the information to criminally investigate or prosecute any alcohol or drug abuse patient.[facility] Encounter Details Date Type Department Care Team (Late st Contact Info) Description 04/10/2023 Patient Msg Integrated Medicine [address] [place] [address] Christie Phan MD [address] [address] Labs Social History Tobacco Use [...] is lower risk 4 09/24/2022 Data from: https://www.neighborhoodatlas.medicine.[facility]/. Last address used for calculation [address] 09/24/2022 Comments No Sex and Gender [...] Description 03/21/2025 9:00 AM EDT Office Visit [facility] [address] [place] [address] [place] [address] 4 week follow up IVIG - pt to see MASON for this appt per Fara 03/21/2025 9:20 AM EDT Visit (SP) Office Hematology/Oncology [address] [place] [address] Jose Cho MD [address] [place] [address] 4 week follow up IVIG - pt to see MASON for this appt per Fara 03/21/2025 9:40 AM EDT Infusion Center Hematology/Oncology [address] [place] [address] Gabbi, Chair [address] [place] [address] 4 week follow up IVIG - pt to see MASON for this appt per Fara 04/05/2025 2:00 PM EST Infusion Center Hematology/Oncology [address] [place] [address] BENLYSTA - 05/03/2025 2:00 PM [facility] Infusion Center Hematology/Oncology [address] [place] [address] [place] [address] BENLYSTA - documented as of this encounter Visit Diagnoses Not on filedocumented in this encounter Care Teams Vocational Childcare Teacher Relationship Specialty Start Date End Date Manuel Klein MD PCP - General Family Medicine 02/27/22 Manuel Klein MD Referring Family Medicine 02/12/22 Manuel Klein MD [facility] [place] [address] Referring Family Medicine 07/06/24 documented as of this encounter
--- OUTSIDE RECORDS SUMMARY | 2025-03-09 22:35 | XMS_ITS | Encounter Summary ---
Author Organization [facility] Address [facility] [place] [address] Care Team Providers Care Drum Worker Name Role Phone Manuel Klein MD Unavailable [phone] Manuel Klein MD Primary Care Provider +-4 Manuel Klein MD Unavailable [phone] Source Comments In the event this information is protected by the Federal Confidentiality of Alcohol and Drug AbusePatient Records regulations: The Federal rules restrict any use of the information to criminally investigate or prosecute any alcohol or drug abuse patient.[facility] Encounter Details Date Type Department Care Team (Late st Contact Info) Description 10/29/2022 Patient Msg Integrated Medicine [address] [place] [address] Christie Phan MD [address] [address] Trulicity Social History Tobacco Use [...] is lower risk 4 09/24/2022 Data from: https://www.neighborhoodatlas.medicine.[facility]/. Last address used for calculation [address] 09/24/2022 Comments No Sex and Gender [...] Description 03/21/2025 9:00 AM EDT Office Visit [facility] [place] [address] 4 week follow up IVIG - pt to see MASON for this appt per Fara 03/21/2025 9:20 AM EDT Visit (SP) Office Hematology/Oncology [facility] [place] [address] Jose Cho MD [address] [facility] [place] [address] 4 week follow up IVIG - pt to see MASON for this appt per Fara 03/21/2025 9:40 AM EDT Infusion Center Hematology/Oncology [address] [facility] [place] [address] Gabbi, Chair [address] [facility] [place] [address] 4 week follow up IVIG - pt to see MASON for this appt per Fara 04/05/2025 2:00 PM EST Infusion Center Hematology/Oncology [address] [facility] [place] [address] BENLYSTA - 05/03/2025 2:00 PM [facility] Infusion Center Hematology/Oncology [address] [place] [address] [place] [address] BENLYSTA - documented as of this encounter Visit Diagnoses Not on filedocumented in this encounter Care Teams Drum Worker Relationship Specialty Start Date End Date Manuel Klein MD PCP - General Family Medicine 02/27/22 Manuel Klein MD Referring Family Medicine 02/12/22 Manuel Klein MD [address] [place] [address] Referring Family Medicine 07/06/24 documented as of this encounter
--- OUTSIDE RECORDS SUMMARY | 2025-03-09 22:35 | XMS_ITS | Encounter Summary ---
Author Organization [facility] Address [address] [place] [address] Care Team Providers Care Outer Diameter Technician Name Role Phone Manuel Klein MD Unavailable [phone] Manuel Klein MD Primary Care Provider +-4 Manuel Klein MD Unavailable [phone] Source Comments In the event this information is protected by the Federal Confidentiality of Alcohol and Drug AbusePatient Records regulations: The Federal rules restrict any use of the information to criminally investigate or prosecute any alcohol or drug abuse patient.[facility] Encounter Details Date Type Department Care Team (Late st Contact Info) Description 12/24/2022 Patient Msg Allergy [address] [place] [address] [phone] Misty Nelson MD [facility]2 [place] [address] Request an Appointment Social History [...] 09/24/2022 Data from: https://www.neighborhoodatlas.medicine.[facility]/. Last address used for calculation [address] 09/24/2022 Comments No Sex and Gender [...] Office Visit [facility] [address] [place] [address] [place] [address] 4 week follow up IVIG - pt to see MASON for this appt per Fara 03/21/2025 9:20 AM EDT Visit (SP) Office Hematology/Oncology [address] [facility] [place] [address] Jose Cho MD [address] [place] [address] 4 week follow up IVIG - pt to see MASON for this appt per Fara 03/21/2025 9:40 AM EDT Infusion Center Hematology/Oncology [address] [place] [address] [place] [address] Gabbi, Chair [address] [facility] [place] [address] 4 week follow up IVIG - pt to see MASON for this appt per Fara 04/05/2025 2:00 PM EST Infusion Center Hematology/Oncology [address] [place] [address] [place] [address] BENLYSTA - 05/03/2025 2:00 PM [facility] Infusion Center Hematology/Oncology [address] [place] [address] [place] [address] BENLYSTA - documented as of this encounter Visit Diagnoses Not on filedocumented in this encounter Care Teams Outer Diameter Technician Relationship Specialty Start Date End Date Manuel Klein MD PCP - General Family Medicine 02/27/22 Manuel Klein MD Referring Family Medicine 02/12/22 Manuel Klein MD [address] [place] [address] Referring Family Medicine 07/06/24 documented as of this encounter
--- OUTSIDE RECORDS SUMMARY | 2025-03-09 22:35 | XMS_ITS | Encounter Summary ---
Author Organization [facility] Address [address] [place] [address] Care Team Providers Care Concrete Stone Finishing Supervisor Name Role Phone Manuel Klein MD Unavailable [phone] Manuel Klein MD Primary Care Provider +-4 Manuel Klein MD Unavailable [phone] Source Comments In the event this information is protected by the Federal Confidentiality of Alcohol and Drug AbusePatient Records regulations: The Federal rules restrict any use of the information to criminally investigate or prosecute any alcohol or drug abuse patient.[facility] Encounter Details Date Type Department Care Team (Late st Contact Info) Description 01/26/2024 [place] [address] Provider, Ccf Important changes to Wellness RX [...] lower risk 4 09/24/2022 Data from: https://www.neighborhoodatlas.[facility]/. Last address used for calculation [address] [facility] 09/24/2022 Comments No Sex and Gender [...] Visit [facility] [address] [place] [address] 4 week follow up IVIG - pt to see MASON for this appt per Fara 03/21/2025 9:20 AM EDT Visit (SP) Office Hematology/Oncology [address] [place] [address] Jose Cho MD [address] [place] [address] 4 week follow up IVIG - pt to see MASON for this appt per Fara 03/21/2025 9:40 AM EDT Infusion Center Hematology/Oncology [address] [facility] [place] [address] Gabbi, Chair [address] [facility] [place] [address] 4 week follow up IVIG - pt to see MASON for this appt per Fara 04/05/2025 2:00 PM EST Infusion Center Hematology/Oncology [address] [facility] [place] [address] BENLYSTA - 05/03/2025 2:00 PM [facility] Infusion Center Hematology/Oncology [address] [facility] [place] [address] BENLYSTA - documented as of this encounter Visit Diagnoses Not on filedocumented in this encounter Care Teams Concrete Stone Finishing Supervisor Relationship Specialty Start Date End Date Manuel Klein MD PCP - General Family Medicine 02/27/22 Manuel Klein MD Referring Family Medicine 02/12/22 Manuel Klein MD [address] [place] [address] Referring Family Medicine 07/06/24 documented as of this encounter
--- OUTSIDE RECORDS SUMMARY | 2025-03-09 22:35 | XMS_ITS | Clinical Summary ---
Author Organization [facility] Address [address], [address] [place] [address] Care Team Providers Care Tire Service Technician Name Role Phone Gay De La Torre APRN - SWIM COACH Primary Care Provide r Allergies Active Allergy [...] 8:32 AM 10/08/2020 2:43 AM Care Teams Tire Service Technician Relationship Specialty Start Date End Date Gay De La Torre, MAURILIO - SWIM COACH [address] [place] [address] PCP - General 06/03/21
--- OUTSIDE RECORDS SUMMARY | 2025-03-09 22:35 | XMS_ITS | Encounter Summary ---
Author Organization [facility] Address [facility] [place] [address] Care Team Providers Care Armoured Corps Officer Name Role Phone Manuel Klein MD Unavailable [phone] Manuel Klein MD Primary Care Provider +-4 Manuel Klein MD Unavailable [phone] Source Comments In the event this information is protected by the Federal Confidentiality of Alcohol and Drug AbusePatient Records regulations: The Federal rules restrict any use of the information to criminally investigate or prosecute any alcohol or drug abuse patient.[facility] Encounter Details Date Type Department Care Team (Late st Contact Info) Description 02/11/2023 Patient [facility] HB-3 [address] [place] [address] Provider, Ccf Huseyin Approved - Action Needed! [...] is lower risk 4 09/24/2022 Data from: https://www.neighborhoodatlas.medicine.[facility].edu/. Last address used for calculation [address] 09/24/2022 Comments No Sex and Gender [...] [facility] [address] [facility] [place] [address] 4 week follow up IVIG - pt to see MASON for this appt per Fara 03/21/2025 9:20 AM EDT Visit (SP) Office Hematology/Oncology [address] [place] [address] Jose Cho MD [address] [place] [address] 4 week follow up IVIG - pt to see MASON for this appt per Fara 03/21/2025 9:40 AM EDT Infusion Center Hematology/Oncology [address] [place] [place] [address] Gabbi, Chair [address] [facility] [place] [address] 4 week follow up IVIG - pt to see MASON for this appt per Fara 04/05/2025 2:00 PM EST Infusion Center Hematology/Oncology [address] [facility] [place] [address] BENLYSTA - 05/03/2025 2:00 PM [facility] Infusion Center Hematology/Oncology [address] [place] [place] [address] BENLYSTA - documented as of this encounter Visit Diagnoses Not on filedocumented in this encounter Care Teams Armoured Corps Officer Relationship Specialty Start Date End Date Manuel Klein MD PCP - General Family Medicine 02/27/22 Manuel Klein MD Referring Family Medicine 02/12/22 Manuel Klein MD [address] [place] [address] Referring Family Medicine 07/06/24 documented as of this encounter
--- OUTSIDE RECORDS SUMMARY | 2025-03-09 22:35 | XMS_ITS | Encounter Summary ---
Author Organization [facility] Address [address] [place] [address] Care Team Providers Care Regional Wildlife Agent Name Role Phone Manuel Klein MD Unavailable [phone] Manuel Klein MD Primary Care Provider +-4 Manuel Klein MD Unavailable [phone] Source Comments In the event this information is protected by the Federal Confidentiality of Alcohol and Drug AbusePatient Records regulations: The Federal rules restrict any use of the information to criminally investigate or prosecute any alcohol or drug abuse patient.[facility] Encounter Details Date Type Department Care Team (Late st Contact Info) Description 10/15/2022 Get Medical Advice Allergy [address] [place] [phone] Misty Nelson MD [address] [place] [address] Vaccine Social History Tobacco Use Types [...] is lower risk 4 09/24/2022 Data from: https://www.neighborhoodatlas.medicine.[facility]/. Last address used for calculation [address] 09/24/2022 Comments No Sex and Gender [...] Description 03/21/2025 9:00 AM EDT Office Visit [facility] [place] [address] 4 week follow up IVIG - pt to see MASON for this appt per Fara 03/21/2025 9:20 AM EDT Visit (SP) Office Hematology/[place] [address] Jose Cho MD [address] [place] [address] 4 week follow up IVIG - pt to see MASON for this appt per Fara 03/21/2025 9:40 AM EDT Infusion Center Hematology/Oncology [address] [place] [address] Gabbi, Chair [address] [place] [address] 4 week follow up IVIG - pt to see MASON for this appt per Fara 04/05/2025 2:00 PM EST Infusion Center Hematology/Oncology [address] [place] [address] BENLYSTA - 05/03/2025 2:00 PM [facility] Infusion Center Hematology/Oncology [address] [place] [address] [place] [address] BENLYSTA - documented as of this encounter Visit Diagnoses Not on filedocumented in this encounter Care Teams Regional Wildlife Agent Relationship Specialty Start Date End Date Manuel Klein MD PCP - General Family Medicine 02/27/22 Manuel Klein MD Referring Family Medicine 02/12/22 Manuel Klein MD [address] [place] [address] Referring Family Medicine 07/06/24 documented as of this encounter
--- OUTSIDE RECORDS SUMMARY | 2025-03-09 22:35 | XMS_ITS | Clinical Summary ---
Author Organization [facility] Address [address] [place] [address] Care Team Providers Care Experience Planning Strategist Name Role Phone Gay De La Torre CNP Primary Care Provider [phone] Allergies Active Allergy Reactions Criticality Noted Date [...] 06/01/2023 Tachycardia 06/01/2023 Bilateral wrist pain 02/04/2023 alf current use of systemic steroids 02/04 Raynaud's [...] topic Insurance [employer] [place] Care Teams Experience Planning Strategist Relationship Specialty Start Date End Date Gay De La Torre CNP [facility], [facility] [address] [place] [phone] PCP - General Family Medicine 03/01/24
--- OUTSIDE RECORDS SUMMARY | 2025-03-09 22:35 | XMS_ITS | Encounter Summary ---
Author Organization [facility] Address [address] [place] [address] Care Team Providers Care Hobbing Press Operator Name Role Phone Manuel Klein MD Unavailable [phone] Manuel Klein MD Primary Care Provider +-4 Manuel Klein MD Unavailable [phone] Source Comments In the event this information is protected by the Federal Confidentiality of Alcohol and Drug AbusePatient Records regulations: The Federal rules restrict any use of the information to criminally investigate or prosecute any alcohol or drug abuse patient.[facility] Encounter Details Date Type Department Care Team (Late st Contact Info) Description 02/23/2024 Patient Msg Rheumatology [address] [place], [place] [phone] Sandra Park MD [address] [place] [address] Appointment Request Social History Tobacco [...] lower risk 4 09/24/2022 Data from: https://www.neighborhoodatlas.medicine.[facility]/. Last address used for calculation [address] 09/24/2022 Comments No Sex and Gender [...] Office Visit [facility] [address] [place] [address] [place] [address] 4 week follow up IVIG - pt to see MASON for this appt per Fara 03/21/2025 9:20 AM EDT Visit (SP) Office Hematology/Oncology [address] [place] [address] Jose Cho MD [address] [place] [address] 4 week follow up IVIG - pt to see MASON for this appt per Fara 03/21/2025 9:40 AM EDT Infusion Center Hematology/Oncology [address] [place] [address] Gabbi, Chair [address] [place] [address] 4 week follow up IVIG - pt to see MASON for this appt per Fara 04/05/2025 2:00 PM EST Infusion Center Hematology/Oncology [address] [place] [address] BENLYSTA - 05/03/2025 2:00 PM [facility] Infusion Center Hematology/Oncology [address] [place] [address] [place] [address] BENLYSTA - documented as of this encounter Visit Diagnoses Not on filedocumented in this encounter Care Teams Hobbing Press Operator Relationship Specialty Start Date End Date Manuel Klein MD PCP - General Family Medicine 02/27/22 Manuel Klein MD Referring Family Medicine 02/12/22 Manuel Klein MD [facility] [place] [address] Referring Family Medicine 07/06/24 documented as of this encounter
--- OUTSIDE RECORDS SUMMARY | 2025-03-09 22:35 | XMS_ITS | Clinical Summary ---
Author Organization [facility] Address [address] [place] [address] Care Team Providers Care Hospital Personnel Director Name Role Phone Gay De La Torre CNP Primary Care Provider [phone] Social History Tobacco Use Types Packs/Day Years [...] Description 03/14/2025 12:00 PM EDT Office Visit [facility] Infectious Disease [address] [phone] Colleen Hamilton MD [address] [phone] Health Maintenance Due Date Last Done Comments [...] Last 3 Months Insurance [employer] Care Teams Hospital Personnel Director Relationship Specialty Start Date End Date Gay De La Torre CNP [address] [place] [address] PCP - General Nurse Practitioner - Family 03/27/24
--- OUTSIDE RECORDS SUMMARY | 2025-03-09 22:35 | XMS_ITS | Encounter Summary ---
Author Organization [facility] Address [address] [place] [address] Care Team Providers Care Executive Coach Name Role Phone Manuel Klein MD Unavailable [phone] Manuel Klein MD Primary Care Provider +-4 Manuel Klein MD Unavailable [phone] Source Comments In the event this information is protected by the Federal Confidentiality of Alcohol and Drug AbusePatient Records regulations: The Federal rules restrict any use of the information to criminally investigate or prosecute any alcohol or drug abuse patient.[facility] Encounter Details Date Type Department Care Team (Late st Contact Info) Description 12/09/2023 Get Medical Advice Infectious Disease [address] [place] [address] Tiffany Head DO [address] [place] [address] Infection Social History Tobacco Use [...] lower risk 4 09/24/2022 Data from: https://www.neighborhoodatlas.medicine.[facility]/. Last address used for calculation [address] 09/24/2022 Comments No Sex and Gender [...] Description 03/21/2025 9:00 AM EDT Office Visit [facility] [place] [address] 4 week follow up IVIG - pt to see MASON for this appt per Fara 03/21/2025 9:20 AM EDT Visit (SP) Office Hematology/[place] [address] [place] [address] Jose Cho MD [address] [facility] [address] 4 week follow up IVIG - pt to see MASON for this appt per Fara 03/21/2025 9:40 AM EDT Infusion Center Hematology/Oncology [address] [facility] [address] Gabbi, Chair [address] [facility] [place] [address] 4 week follow up IVIG - pt to see MASON for this appt per Fara 04/05/2025 2:00 PM EST Infusion Center Hematology/Oncology [address] [facility] [place] [place] [address] BENLYSTA - 05/03/2025 2:00 PM [facility] Infusion Center Hematology/Oncology [address] [place] [address] [place] [address] BENLYSTA - documented as of this encounter Visit Diagnoses Not on filedocumented in this encounter Care Teams Executive Coach Relationship Specialty Start Date End Date Manuel Klein MD PCP - General Family Medicine 02/27/22 Manuel Klein MD Referring Family Medicine 02/12/22 Manuel Klein MD [address] [place] [address] Referring Family Medicine 07/06/24 documented as of this encounter
--- OUTSIDE RECORDS SUMMARY | 2025-03-09 22:35 | XMS_ITS | Encounter Summary ---
Author Organization [facility] Address [address] [place] [address] Care Team Providers Care Cut Off Machine Operator Name Role Phone Manuel Klein MD Unavailable [phone] Manuel Klein MD Primary Care Provider +-4 Manuel Klein MD Unavailable [phone] Source Comments In the event this information is protected by the Federal Confidentiality of Alcohol and Drug AbusePatient Records regulations: The Federal rules restrict any use of the information to criminally investigate or prosecute any alcohol or drug abuse patient.[facility] Encounter Details Date Type Department Care Team (Late st Contact Info) Description 02/18/2024 Get Medical Advice Rheumatology [address] [place], [place] [phone] Sandra Park MD [address] [place] [address] Referral Social History Tobacco Use [...] risk 4 09/24/2022 Data from: https://www.neighborhoodatlas.medicine.[facility]/. Last address used for calculation [address] 09/24/2022 Comments No Sex and Gender [...] [facility] [address] [facility] [place] [address] 4 week follow up IVIG - pt to see MASON for this appt per Fara 03/21/2025 9:20 AM EDT Visit (SP) Office Hematology/Oncology [address] [facility] [place] [address] Jose Cho MD [address] [facility] [place] [address] 4 week follow up IVIG - pt to see MASON for this appt per Fara 03/21/2025 9:40 AM EDT Infusion Center Hematology/Oncology [address] [facility] [place] [address] Gabbi, Chair 4 [address] [facility] [place] [address] 4 week follow up IVIG - pt to see MASON for this appt per Fara 04/05/2025 2:00 PM [facility] Infusion Center Hematology/Oncology [address] [facility] [place] [address] BENLYSTA - 05/03/2025 2:00 PM [facility] Infusion Center Hematology/Oncology [address] [facility] [place] [address] BENLYSTA - documented as of this encounter Visit Diagnoses Diagnosis 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
--- OUTSIDE RECORDS SUMMARY | 2025-03-09 22:36 | XMS_ITS | Clinical Summary ---
Author Organization [facility] Healthcare Address [address] [facility] [place] [address] Care Team Providers Care Manager Photography Name Role Phone Gay Enciso MD Unavailable [phone] Allergies Active Allergy Reactions Criticality Noted [...] MG tablet every 8 (eight) hours Active hydroxychloroqui ne (Plaquenil) 400 MG tablet 1 (one) time each day at the same time Active acetaminophen (Tylenol) 325 MG tablet every 4 (four) hours Active nystatin (Mycostatin) creamIndications :Candidiasis of skin Apply to left armpit BID until clear 15 g 01/16/20 23 Active metoprolol tartrate (Lopressor) 50 MG tablet Take 100 mg by mouth in the morning and 100 mg before bedtime. 04/23/20 23 Active folic acid (Folvite) 1 MG tablet Take 1 mg by mouth in the morning. 01/16/20 23 Active ergocalciferol (Vitamin D2) 1.25 MG (40069 UT) capsule Take 50,000 Units by mouth [...] same time Active tretinoin (Retin-A) 0.05 % creamIndications :Striae atrophic Apply to face, once daily at evening/night time, 30 day supply 20 g 07/15/19 24 Active fluticasone (Flonase) 50 MCG/ACT nasal sprayIndications :Eustachian tube dysfunction, bilateral,Non-re current acute serous otitis media of both ears Administer 2 sprays into each nostril in the morning and 2 sprays before bedtime. Shake gently. Before first use, prime pump. After use, clean tip and replace cap.. 16 g 12 12/04/19 24 Active diclofenac sodium 1 % gel 02/01/20 24 Active pantoprazole (ProtoNix) 20 MG EC tablet Take 20 mg by mouth in the morning. Take before meals. Do not crush, chew, or split. Active clindamycin (Cleocin T) 1 % lotionIndication s:Hidradenitis suppurativa Apply thin later to affected areas on the thighs, once daily, 30 day supply 60 mL 07/26/19 25 Active Chlorhexidine Gluconate (Hibiclens) 4 % solutionIndicati ons:Hidradenitis suppurativa Use every day in shower from the neck down to affected areas. 532 mL 07/26/19 25 Active Clobetasol Propionate 0.05 % shampooIndicatio ns:Other seborrheic dermatitis 1 application to the scalp in the shower topically 3-4 times a week 236 mL 07/26/19 25 Active fluocinonide (Lidex) 0.05 % external solutionIndicati ons:Other seborrheic dermatitis Apply to affected areas on the scalp, up to twice a day when flared, 30 day supply 60 mL 07/26/19 25 Active tacrolimus (Protopic) 0.1 % ointmentIndicati ons:Lupus erythematosus tumidus Apply to affected area on forehead bid prn flares, hold if clear 30 g 07/26/19 25 Active KlonoPIN 0.5 MG tablet 1 tablet Orally Once a day prn for 30 days 09/02/19 25 Active immune globulin, human, (Gammagard) infusion Infuse into a venous catheter Active tretinoin (Retin-A) 0.025 % creamIndications :Acne vulgaris Apply to face, once daily at evening/night time, 30 day supply 45 g 11/24/19 25 Active cephalexin (Keflex) 500 MG capsule 02/28/20 25 Active azaTHIOprine (Imuran) 50 MG tablet Take 150 mg by mouth Daily 05/24/19 24 025 Discontin ued(Thera py completed ) baclofen (Lioresal) 5 MG tabletIndication s:Lumbosacral radiculopathy at L5,Degenerative disc disease, lumbar,Cervical radiculopathy at C5 TAKE 1 TABLET BY MOUTH IN THE MORNING, EVENING AND BEFORE BEDTIME 270 tablet 1 03/02/20 24 025 Discontin ued(Thera py completed ) norethindrone-et hinyl estradiol-iron (Lo Loestrin Fe) 1 MG-10 MCG / 10 MCG tabletIndication s:Menorrhagia with regular cycle Take 1 tablet by mouth Daily Take 1 tablet by mouth daily 28 tablet 11 03/23/20 24 025 Discontin ued(Thera py completed ) Trulicity 1.5 MG/0.5ML solution auto-injector INJECT SUBCUTANEOUSLY ONCE A WEEK DIRECTED 08/18/19 25 025 Discontin ued(Thera py completed ) Hospital, Clinic, or Other Facility Administered Medication Ordered Dose Route Frequency Start Date End Date Status triamcinolone acetonide (Kenalog) injection 2.5 mgIndications:Hidrad enitis suppurativa,Pain 2.5 mg INTRA-LESION Once 11/23/2024 Active triamcinolone acetonide (Kenalog) injection 2.5 mgIndications:Hidrad enitis suppurativa 2.5 mg INTRA-LESION Once 02/14/2025 02/14/2025 Ende d Active Problems Problem Noted Date Diagnosed Date Pilonidal abscess 02/28/2025 Lupus erythematosus 04/06/2024 Sacroiliitis 04/06/2024 Frequent infections [...] episodic headache 06/01/2023 Bilateral wrist pain 02/04/2023 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 03/02/2025 External Result Encounter [facility] External Department Unsolicited Terence Blum MD 02/28/2025 9:30 AM EDT Consult [facility] [address] [place] [address] Terence Blum MD Pilonidal abscess (Primary Dx); Pilonidal cyst 02/28/2025 Travel 02/27/2025 Travel 02/26/2025 Travel 02/23/2025 Travel 02/19/2025 Travel 02/14/2025 3:20 PM EDT Office Visit [facility] [address] [place] [address] Cynthia English MD Pilonidal cyst (Primary Dx); Hidradenitis suppurativa 02/14/2025 Bamboo flowsheet [facility] [address] [place] [address] Cynthia English MD 02/14/2025 Travel 01/30/2025 Results Follow-Up [facility] [address] [place] [address] [place] [address] Sabi Barker LPN Left breast US limited 01/26/2025 11:45 AM EDT Ancillary Procedure [facility] [address] [place] [address] Other benign mammary dysplasias of left breast 01/26/2025 Travel 12/07/2024 Refill [facility] [address] [place] [address] Андрей Hearn DO Eustachian tube dysfunction, bilateral; Non-recurrent acute serous otitis media of both ears from Last 3 Months Family History Medical [...] Pressure 120/78 02/28/2025 9:25 AM EDT Pulse 101 09/04/2024 3:04 PM EDT Temperature 37.1 C (98.7 F) 04/02/2024 1:27 PM EST Respiratory Rate 18 08/24/2023 8:22 AM EDT Oxygen Saturation 99% 04/02/2024 1:27 PM EST Inhaled Oxygen Concentration - - Weight 132 kg (291 lb) 02/28/2025 9:25 AM EDT Height 170.2 cm (5' 7 ) 02/28/2025 9:25 AM EDT Body Mass Index 45.58 02/28/2025 9:25 AM EDT Plan of Treatment Upcoming Encounters Date Type Department Care Team (Late st Contact Info) Description 03/19/2025 10:20 AM EDT Office Visit [facility] [address] [facility] [address] [place] [address] Mary Grace Mejias MD 112 [facility] [address] [place] [address] 03/23/2025 11:30 AM EDT Office Visit [facility] [address] [facility] [address] [place] [address] Terence Blum MD 703 [facility] [address] [place] [address] 07/25/2025 11:00 AM EST Office Visit [facility] [address] [place] [address] Cynthia English MD [address] [place] [address] Health Maintenance Due Date Last Done Comments [...] GRAM STAIN Routine 03/02/2025 5:17 PM EDT GENERAL PATHOLOGY Routine 03/02/2025 11: 32 AM EDT BI US BREAST LIMITED LEFT Routine 01/26/2025 12:14 PM EDT Other benign mammary dysplasias of left breast PAP SMEAR Routine 06/06/2024 12:00 AM EST MM TOMOSYNTHESIS DIAGNOSTIC BI 04/07/2024 8:40 AM EST from Last 3 Months or Most Recently Relevant to Health Maintenance Results * (ABNORMAL) AEROBIC ELPIDIO CHARGE (NMIC56) (03/02/2025 5:17 PM EDT) AMIKACIN <16(S) 03/04/2025 9:13 AM EDT [facility] AZTREONAM <4(I) 03/04/2025 9:13 AM EDT [facility] CEFEPIME <2(S) 03/04/2025 9:13 AM EDT [facility] CEFTAZIDIME <1(I) 03/04/2025 9:13 AM EDT [facility] CEFTAZIDIME/AVIBA CTAM <4(S) 03/04/2025 9:13 AM EDT [facility] CEFTOLOZANE/TAZOB ACTAM <2(S) 03/04/2025 9:13 AM EDT [facility] CEFTRIAXONE <1(I) 03/04/2025 9:13 AM EDT [facility] CIPROFLOXACIN >2(R) 03/04/2025 9:13 AM EDT [facility] ERTAPENEM <0.5(S) 03/04/2025 9:13 AM EDT [facility] GENTAMICIN <2(S) 03/04/2025 9:13 AM EDT [facility] LEVOFLOXACIN <0.5(S) 03/04/2025 9:13 AM EDT [facility] MEROPENEM <1(S) 03/04/2025 9:13 AM EDT [facility] MEROPENEM/VABORBA CTAM <2(S) 03/04/2025 9:13 AM EDT [facility] PIPERACILLIN/TAZO BACTAM <8(I) 03/04/2025 9:13 AM EDT [facility] TETRACYCLINE >8(R) 03/04/2025 9:13 AM EDT [facility] TIGECYCLINE <2(S) 03/04/2025 9:13 AM EDT [facility] TOBRAMYCIN <2(S) 03/04/2025 9:13 AM EDT [facility] TRIMETHOPRIM/SULF AMETHOXAZOLE <0.5/9.5( S) 03/04/2025 9:13 AM EDT [facility] Other Specimen from uterine cervix / Unknown 03/02/2025 5:17 PM EDT 03/02/2025 5:38 PM EDT Comment:Abscess us Terence Pacheco MD [facility] Final Result [facility] [address] [place] [address], [facility] [address] [place] [address] * AEROBIC CULTURE (03/02/2025 5:17 PM EDT) [facility]GAN[facility] Serratia marcescens 03/04/2025 9:13 AM EDT [facility] QUANTITY OF GROWTH Light Growth 03/04/2025 9:13 AM EDT [facility] Other Specimen from uterine cervix / Unknown 03/02/2025 5:17 PM EDT 03/02/2025 5:38 PM EDT Comment:Abscess Narrative [facility] - 03/08/2025 12:35 PM EDT Comment pilonidal abscess culture Terence Pacheco MD LAB BLOOD ORDERABLES Final R esult Performing Organization Address [facility] Co de Phone Number [facility] [address] [place] [address], [facility] [address] [place] [address] * (ABNORMAL) Gram stain (03/02/2025 5:17 PM EDT) Pathologist [facility] GRAM STAIN 1+ Gram Positive Cocci(A) 03/03/2025 2:17 PM EDT [facility] GRAM STAIN 2+ White Blood Cells(A) 03/03/2025 2:17 PM EDT [facility] Other Specimen from uterine cervix / Unknown 03/02/2025 5:17 PM EDT 03/02/2025 5:38 PM EDT Comment:Abscess Narrative [facility] - 03/08/2025 12:35 PM EDT Comment pilonidal abscess culture Terence Pacheco MD LAB MICROBIOLOGY - GENERAL O RDERABLES Final Result Performing Organization Address City/[facility] Hospital/ZIP Co de Phone Number [facility] [address] [place] [address], [facility] [address] [place] [address] * GENERAL PATHOLOGY (03/02/2025 11:32 AM EDT) Terence Pacheco MD [facility] Final Result * Left breast US limited (01/26/2025 12:14 [...] abnormal calcifications or vascularity. No obvious adenopathy. [facility] IMG US PROCEDURES Final Result * Pap Smear (06/06/2024 12:00 AM EST) Swab Cervical swab / Unknown Oly [facility] LAB CYTOLOGY ORDERABLES Final Re sult EXTERNAL LAB * MM TOMOSYNTHESIS DIAGNOSTIC BI (04/07/2024 8:40 AM EST) Anatomical Region Laterality Modality Other 04/07/2024 8:40 AM EST Narrative 04/07/2024 8:41 [place] [address] Mammography Report Signed Patient: JONES PANIAGUA MR#: [id number] : 1980 Acct:[id number] Age/Sex: 43 / F ADM Date: 04/06/24 Loc: US Attending Dr: Luan Valdivia D.O. Ordering Physician: Luan Valdivia D.O. Results: Date of Service: 04/06/24 Follow Up: Procedure(s): MM tomosynthesis diagnostic BI Accession Number(s): [id number] cc: GAY ENCISO ; Luan Valdivia D.O. Patient Name: JONES PANIAGUA MR#: [id number] : 1980 Exam Date: 04/06/2024 Ordering Doctor: [...] stomach cancer at age 56. LOCATION: [facility] BREAST COMPOSITION: There are scattered areas [...] M.D. Signed By: 04/07/24 0841 DD/ TD/TT: Box Puller: Procedure Note Radiology, Radiologist, MD - 04/07/2024 [place] [address] Mammography Report Signed Patient: JONES PANIAGUA BMR#: [id number] : 1980Acct:[id number] Age/Sex: 43 / FADM Date: 04/06/24 Loc: US Attending Dr: Luan Valdivia D.O. Ordering Physician: Luan Valdivia D.O.Results: Date of Service: 04/06/24Follow Up: Procedure(s): MM tomosynthesis diagnostic BI Accession Number(s): [id number] cc: GAY ENCISO ; Luan Valdivia D.O. Patient Name: JONES PANIAUGA MR#: [id number] : 1980 Exam Date: 04/06/2024 Ordering Doctor: DR Luan Valdivia . RADIOLOGY REPORT PROCEDURE: MM TOMOSYNTHESIS DIAGNOSTIC BI, 04/06/2024, 15:20 US BREAST BI LIMITED, 04/06/2024, 15:37 COMPARISON: MM TOMOSYNTHESIS SCREENING BI, 09/23/2023. MG MAMM PRDPAT2Q MARK CAD, 09/01/2022. MG MAMM SCREEN 3D [...] stomach cancer at age 56. LOCATION: [facility] BREAST COMPOSITION: There are scattered areas [...] Vito Yusuf M.D. Signed By:04/07/2441 DD/ TD/TT: Box Puller: [facility] Skip DO [facility] Final Result from Last 3 Months or Most Recently Relevant to Health Maintenance Insurance [employer] Care Teams Manager Photography Relationship Specialty Start Date End Date Gay Enciso MD [address] [place] [address] Referring Physician Family Medicine 07/18/24
--- OUTSIDE RECORDS SUMMARY | 2025-03-09 22:36 | XMS_ITS | Encounter Summary ---
Author Organization [facility] Address [address] [facility] [place] [address] Care Team Providers Care Foot Worker Name Role Phone House, Charles Culver MD Primary Care Provider [phone] Gay De La Torre MD Unavailable [phone] Encounter Details Date Type Department Care Team (Late Contact Info) Description 06/14/2024 Clinisync Result Encounter [facility] External Department Unsolicited Oly Plascencia, KELVIN [address] [place] [address] [place] [address] Social History Tobacco Use Types [...] 03/19/2025 10:20 AM EDT Office Visit [facility] [address] [place] [address] Mary Grace Mejias MD 112 [facility] [address] [place] [address] 03/23/2025 11:30 AM EDT [facility] [address] [place] [address] Terence Blum MD [address] [facility] [address] [place] [address] 07/25/2025 11:00 AM EST Office Visit [facility] [address] [place] [address] Cynthia English MD [address] [place] [address] documented as of this encounter Procedures Procedure Name Priority Date/Time Associated Diagnosis Comments US BREAST LT LIMITED 06/14/2024 3:04 PM EST documented in this encounter Results * US BREAST LT LIMITED (06/14/2024 3:04 PM EST) Anatomical Region Laterality Modality Other 06/14/2024 3:04 PM EST Narrative 06/14/2024 3:05 PM EST [address] [address] Ultrasound Report Signed Patient: JONES PANIAGUA MR#: [id number] : 1980 Acct:[id number] Age/Sex: 43 / F ADM Date: 06/14/24 Loc: MAMMO Attending Dr: Oly Plascencia Ordering Physician: Oly Plascencia Date of Service: 06/14/24 Procedure(s): US breast LT limited Accession Number(s): [id number] cc: Oly Plascencia; GAY DE LA TORRE Patient Name: JONES PANIAGUA MR#: [id number] : 1980 Exam Date: 06/14/2024 Ordering Doctor: [...] Signed By: 06/14/24 1505 DD/ 1504 TD/TT: Electrical Assistant: Procedure Note Radiology, Radiologist, MD - 06/14/2024 [place] [address] Ultrasound Report Signed Patient: JONES PANIAGUA BMR#: [id number] : 1980Acct:[id number] Age/Sex: 43 / FADM Date: 06/14/24 Loc: MAMMO Attending Dr: Oly Plascencia Ordering Physician: Oly Plascencia Date of Service: 06/14/24 Procedure(s): US breast LT limited Accession Number(s): [id number] cc: Oly Plascencia; GAY DE LA TORRE Patient Name: JONES PANIAGUA MR#: [id number] : 1980 Exam Date: 06/14/2024 Ordering Doctor: [...] M.D. Signed By:06/14/24 1505 DD/ 1504 TD/TT: Electrical Assistant: us Oly [facility] Final Result documented in this encounter Visit Diagnoses Not on filedocumented in this encounter Care Teams Foot Worker Relationship Specialty Start Date End Date Charles Nicole MD PCP - General Family Medicine 02/09/24 07/17/24 Gay De La Torre MD [address] [place] [address] Referring Physician Family Medicine 07/18/24 documented as of this encounter
--- OUTSIDE RECORDS SUMMARY | 2025-03-09 22:36 | XMS_ITS | Encounter Summary ---
Author Organization [facility] Address [address] [facility] [place] [address] Care Team Providers Care Truck Engine Technician Name Role Phone House, Charles Culver MD Primary Care Provider [phone] Gay De La Torre MD Unavailable [phone] Reason for Visit * Reason Comments Med Refill Encounter Details Date Type Department Care Team (Late Contact Info) Description 07/02/2024 Refill [facility] [address] [place] [address] Mary Grace Mejias MD 112 [employer] [facility] [address] [place], [place] [id number] LPRD (laryngopharyngeal reflux disease) Social History Tobacco [...] [facility] [address] [place] [address] Mary Grace Mejias MD 112 [employer] [facility] [address] [place], [place] [id number] 03/23/2025 11:30 AM EDT [facility] Visit [facility] [address] [facility] [address] [place] [address] Terence Blum MD 703 [facility] [address] [place] [address] 07/25/2025 11:00 AM EST Office Visit [facility] [address] [place] [address] Cynthia English MD [address] [place] [address] documented as of this encounter Visit Diagnoses Diagnosis LPRD (laryngopharyngeal reflux disease) Acute laryngitis, without mention of obstruction documented in this encounter Care Teams Truck Engine Technician Relationship Specialty Start Date End Date Charles Nicole MD PCP - General Family Medicine 02/09/24 07/17/24 Gay De La Torre MD [address] [place] [id number] Referring Physician Family Medicine 07/18/24 documented as of this encounter
--- OUTSIDE RECORDS SUMMARY | 2025-03-09 22:36 | XMS_ITS | Encounter Summary ---
Author Organization [facility] Address [facility] [place] [address] Care Team Providers Care Almond Sorter Name Role Phone Manuel Klein MD Unavailable [phone] Manuel Klein MD Primary Care Provider [phone] Manuel Klein MD Unavailable [phone] Source Comments In the event this [...] Advice Infectious Disease [address] [place] [address] Tiffany Head DO [address] [place] [address] Appointment Social History Tobacco Use Types [...] Data from: https://www.neighborhoodatlas.medicine.[facility]/. Last address used for calculation [address] 09/24/2022 Comments No Sex and Gender [...] Description 03/21/2025 9:00 AM EDT Office Visit [facility] [address] [place] [address] [place] [address] 4 week follow up IVIG - pt to see MASON for this appt per Fara 03/21/2025 9:20 AM EDT Visit (SP) Office Hematology/Oncology [address] [place] [address] Jose Cho MD [address] [place] [address] 4 week follow up IVIG - pt to see MASON for this appt per Fara 03/21/2025 9:40 AM EDT Infusion Center Hematology/Oncology [address] [place] [address] Gabbi, Chair [address] [place] [address] 4 week follow up IVIG - pt to see MASON for this appt per Fara 04/05/2025 2:00 PM EST Infusion Center Hematology/Oncology [address] [place] [address] [place] [address] [facility] - 05/03/2025 2:00 PM [facility]Oncology [address] [place] [address] [place] [address] [place] - documented as of this encounter Visit Diagnoses Not on filedocumented in this encounter Care Teams Almond Sorter Relationship Specialty Start Date End Date Manuel Klein MD PCP - General Family Medicine 02/27/22 Manuel Klein MD Referring Family Medicine 02/12/22 Manuel Klein MD [address] [place] [address] Referring Family Medicine 07/06/24 documented as of this encounter
--- OUTSIDE RECORDS SUMMARY | 2025-03-09 22:36 | XMS_ITS | Encounter Summary ---
Author Organization [facility] Address [address] [place] [address] Care Team Providers Care Director International Name Role Phone Aime Davidson MD, Lui Nunez Primary Care Provid er Gay De La Torre(Historical) AGILE QA TESTER.PAPER BAG MAKER Primary Care Provider Unavailable Manuel Klein MD Unavailable Manuel Klein MD Primary Care Provider [phone] Manuel Klein MD Unavailable [phone] Source Comments In the event this information is protected by the Federal Confidentiality of Alcohol and Drug AbusePatient Records regulations: The Federal rules restrict any use of the information to criminally investigate or prosecute any alcohol or drug abuse patient.[facility] Encounter Details Date Type Department Care Team (Late st Contact Info) Description 06/06/2015 Patient Msg Internal Medicine [facility] [address] [place], [place] [id number] Lui Salomon Jr., MD [address] [place] [address] Appointment Cancellation Request Social History [...] Description 03/21/2025 9:00 AM EDT Office Visit [facility] [place] [address] 4 week follow up IVIG - pt to see MASON for this appt per Fara 03/21/2025 9:20 AM EDT Visit (SP) Office Hematology/[place] [address] Jose Cho MD [facility] [address] [facility] [place] [address] 4 week follow up IVIG - pt to see MASON for this appt per Fara 03/21/2025 9:40 AM EDT Infusion Center Hematology/Oncology [address] [facility] [place] [address] Gabbi, Chair [address] [facility] [place] [address] 4 week follow up IVIG - pt to see MASON for this appt per Fara 04/05/2025 2:00 PM EST Infusion Center Hematology/Oncology [address] [facility] [place] [address] BEN[place]STA - 05/03/2025 2:00 PM EST Infusion Center Hematology/Oncology [address] [place] [address] [place] [address] BENLYSTA - documented as of this encounter Visit Diagnoses Not on filedocumented in this encounter Care Teams Director International Relationship Specialty Start Date End Date Lui Salomon Jr., MD PCP - General Internal Medicine 05/31/14 07/08/20 Gay De La Torre(Historical), AGILE QA TESTER.PAPER BAG MAKER PCP - General Family Medicine 10/24/21 02/26/22 Manuel Klein MD PCP - General Family Medicine 02/27/22 Manuel Klein MD Referring Family Medicine 02/12/22 Manuel Klein MD [address] [place] [address] Referring Family Medicine 07/06/24 documented as of this encounter
--- OUTSIDE RECORDS SUMMARY | 2025-03-09 22:36 | XMS_ITS | Encounter Summary ---
Author Organization [facility] Address [address] [place] [address] Care Team Providers Care Hand Sign Writer Name Role Phone Manuel Klein MD Unavailable [phone] Manuel Klein MD Primary Care Provider [phone] Manuel Klein MD Unavailable [phone] Source Comments In the event this information is protected by the Federal Confidentiality of Alcohol and Drug AbusePatient Records regulations: The Federal rules restrict any use of the information to criminally investigate or prosecute any alcohol or drug abuse patient.[facility] Encounter Details Date Type Department Care Team (Late st Contact Info) Description 07/06/2024 Patient Msg Referring Physician [address] [place] [phone] Provider, Ccf Appointment Social History Tobacco Use [...] is lower risk 4 09/24/2022 Data from: https://www.neighborhoodatlas.[facility].edu/. Last address used for calculation [address] [facility] 09/24/2022 Comments No Sex and Gender Information [...] Description 03/21/2025 9:00 AM EDT Office Visit [facility] Laboratory [address] [facility] [address] 4 week follow up IVIG - pt to see MASON for this appt per Fara 03/21/2025 9:20 AM EDT Visit (SP) Office Hematology/Oncology [address] [facility] [place] [address] Jose Cho MD [address] [place] [address] 4 week follow up IVIG - pt to see MASON for this appt per Fara 03/21/2025 9:40 AM EDT Infusion Center Hematology/Oncology [address] [place] [address] Gabbi, Chair [address] [place] [address] 4 week follow up IVIG - pt to see MASON for this appt per Fara 04/05/2025 2:00 PM EST Infusion Center Hematology/Oncology [address] [place] [address] BENLYSTA - 05/03/2025 2:00 PM [facility] Infusion Center Hematology/Oncology [address] [place] [address] BENLYSTA - documented as of this encounter Visit Diagnoses Not on filedocumented in this encounter Care Teams Hand Sign Writer Relationship Specialty Start Date End Date Manuel Klein MD PCP - General Family Medicine 02/27/22 Manuel Klein MD Referring Family Medicine 02/12/22 Manuel Klein MD [address] [place] [address] Referring Family Medicine 07/06/24 documented as of this encounter
--- OUTSIDE RECORDS SUMMARY | 2025-03-09 22:36 | XMS_ITS | Encounter Summary ---
Author Organization [facility] Address [address] [place] [address] Care Team Providers Care Card Mounter Name Role Phone Aime Davidson MD, Lui Nunez Primary Care Provid er Gay De La Torre(Historical) VEHICLE DETAILER.TERMITE RENEWAL INSPECTOR Primary Care Provider Unavailable Manuel Klein MD Unavailable [phone] Manuel Klein MD Primary Care Provider [phone] Manuel Klein MD Unavailable [phone] Source Comments In the event this information is protected by the Federal Confidentiality of Alcohol and Drug AbusePatient Records regulations: The Federal rules restrict any use of the information to criminally investigate or prosecute any alcohol or drug abuse patient.[facility] Encounter Details Date Type Department Care Team (Late st Contact Info) Description 12/31/2014 Patient Msg Medical Records [address] [place] [address] Provider, Ccf Prescription Social History Tobacco Use [...] Description 03/21/2025 9:00 AM EDT Office Visit [facility] Laboratory [address] [facility] [place] [address] 4 week follow up IVIG - pt to see MASON for this appt per Fara 03/21/2025 9:20 AM EDT Visit (SP) Office Hematology/Oncology [address] [place] [address] Jose Cho MD [address] [place] [address] 4 week follow up IVIG - pt to see MASON for this appt per Fara 03/21/2025 9:40 AM EDT [facility] [place] [facility] Hematology/Oncology [address] [place] [address] Gabbi, Chair [address] [place] [address] 4 week follow up IVIG - pt to see MASON for this appt per Fara 04/05/2025 2:00 PM [facility] Infusion Center Hematology/Oncology [address] [place] [address] BENLYSTA - 05/03/2025 2:00 PM [facility] Infusion Center Hematology/Oncology [address] [place] [address] BENLYSTA - documented as of this encounter Visit Diagnoses Not on filedocumented in this encounter Care Teams Card Mounter Relationship Specialty Start Date End Date Lui Salomon Jr., MD PCP - General Internal Medicine 05/31/14 07/08/20 Gay De La Torre(Historical), VEHICLE DETAILER.TERMITE RENEWAL INSPECTOR PCP - General Family Medicine 10/24/21 02/26/22 Manuel Klein MD PCP - General Family Medicine 02/27/22 Manuel Klein MD Referring Family Medicine 02/12/22 Manuel Klein MD [address] [place] [address] Referring Family Medicine 07/06/24 documented as of this encounter
--- OUTSIDE RECORDS SUMMARY | 2025-03-09 22:36 | XMS_ITS | Encounter Summary ---
Author Organization [facility] Address [address] [facility] [place] [address] Care Team Providers Care Steersman Name Role Phone House, Charles Culver MD Primary Care Provider Gay De La Torre MD Unavailable [phone] Encounter Details Date Type Department Care Team (Late Contact Info) Description 06/20/2024 Orders Only [facility] [address] [address] Sabi Barker LPN [address] [place] [address] Social History Tobacco Use Types [...] Visit [facility] [address] [place] [address] Mary Grace Mejias MD [address] [facility] [address] [place] [address] 03/23/2025 11:30 AM EDT Office Visit [facility] [address] [place] [address] Terence Blum MD [address] [place] [address] 07/25/2025 11:00 AM EST Office Visit [facility] [address] [place] [address] Cynthia English MD [address] [place] [address] documented as of this encounter Procedures Procedure Name Priority Date/Time Associated Diagnosis Comments PAP SMEAR Routine 06/06/2024 12:00 AM EST documented in this encounter Results * Pap Smear (06/06/2024 12:00 AM EST) Swab Cervical swab / Unknown Oly [facility] ORDERABLES Final Re sult EXTERNAL LAB documented in this encounter Visit Diagnoses Not on filedocumented in this encounter Care Teams Steersman Relationship Specialty Start Date End Date Charles Nicole MD PCP - General Family Medicine 02/09/24 07/17/24 Gay De La Torre MD [facility] [place] [address] Referring Physician Family Medicine 07/18/24 documented as of this encounter
--- OUTSIDE RECORDS SUMMARY | 2025-03-09 22:36 | XMS_ITS | Encounter Summary ---
Author Organization [facility] Address [address] [facility] [place] [address] Care Team Providers Care Foundry Manager Name Role Phone House, Charles Culver MD Primary Care Provider Gay De La Torre MD Unavailable [phone] Encounter Details Date Type Department Care Team (Late Contact Info) Description 06/14/2024 Clinisync Result Encounter N[facility] External Department Unsolicited Oly Plascencia, KELVIN [address] [place] [address] [place] [address] Social History Tobacco Use Types [...] 03/19/2025 10:20 AM EDT Office Visit [facility] [address] [place] [address] Mary Grace Mejias MD [address] [facility] [address] [place] [address] 03/23/2025 11:30 AM EDT Office Visit [facility] [address] [place] [address] Terence Blum MD [address] [facility] [address] [place] [address] 07/25/2025 11:00 AM EST Office Visit [facility] [address] [place] [address] Cynthia English MD [address] [place] [address] documented as of this encounter Procedures Procedure Name Priority Date/Time Associated Diagnosis Comments MM TOMOSYNTHESIS DIAGNOSTIC LT 06/14/2024 4:14 PM EST documented in this encounter Results * MM TOMOSYNTHESIS DIAGNOSTIC LT (06/14/2024 4:14 PM EST) Anatomical Region Laterality Modality Other 06/14/2024 4:14 PM EST Narrative 06/14/2024 4:15 PM EST [address] [address] Mammography Report Signed Patient: JONES PANIAGUA MR#: [id number] : 1980 Acct:[id number] Age/Sex: 43 / F ADM Date: 06/14/24 Loc: MAMMO Attending Dr: Oly Plascencia Ordering Physician: Oly Plascencia Results: Date of Service: 06/14/24 Follow Up: Procedure(s): MM tomosynthesis diagnostic LT Accession Number(s): [id number] cc: Oly Plascencia; GAY DE LA TORRE Patient Name: JONES PANIAGUA MR#: [id number] : 1980 Exam Date: 06/14/2024 Ordering Doctor: [...] stomach cancer at age 56. LOCATION: [facility] BREAST COMPOSITION: There are scattered areas [...] Signed By: 06/14/24 1615 DD/ 1614 TD/TT: Electrician Assistant: Procedure Note Radiology, Radiologist, MD - 06/14/2024 [place] [address] Mammography Report Signed Patient: JONES PANIAGUA BMR#: [id number] : 1980Acct:[id number] Age/Sex: 43 / FADM Date: 06/14/24 Loc: MAMMO Attending Dr: Oly Plascencia Ordering Physician: Oly PlascenciaResults: Date of Service: 06/14/24Follow Up: Procedure(s): MM tomosynthesis diagnostic LT Accession Number(s): [id number] cc: Oly Plascencia; GAY DE LA TORRE Patient Name: JONES PANIAGUA MR#: [id number] : 1980 Exam Date: 06/14/2024 Ordering Doctor: KELVIN Plascencia . RADIOLOGY REPORT PROCEDURE: MM TOMOSYNTHESIS DIAGNOSTIC LT COMPARISON: US BREAST LT LIMITED, 06/14/2024. MM TOMOSYNTHESISDIAGNOSTIC BI, 04/06/2024. MM TOMOSYNTHESIS SCREENING BI, 09/23/2023. MG MAMM [id number] MARK CAD, 09/01/2022. INDICATIONS: Left Axilla Nodule Calculator Name NCI Breast Cancer Risk Assessment Tool 5 Year Breast Cancer Risk 1.00% Lifetime Breast Cancer Risk 13.20% Personal Breast Cancer No Personal Ovarian Cancer No Treatments None Family Cancers Grandmother-paternal with breast cancer at age 67; Aunt-paternal with breast cancer at age 50; Father with stomach cancer at age 56. LOCATION: [facility] BREAST COMPOSITION: There are scattered areas [...] 16:14 Dictated By: Vito Yusuf M.D. Signed By:06/14/241614 DD/ 13 TD/TT: Electrician Assistant: us Oly [facility] Final Result documented in this encounter Visit Diagnoses Not on filedocumented in this encounter Care Teams Foundry Manager Relationship Specialty Start Date End Date Charles Nicole MD PCP - General Family Medicine 02/09/24 07/17/24 Gay De La Torre MD [address] [place] [address] Referring Physician Family Medicine 07/18/24 documented as of this encounter
--- OUTSIDE RECORDS SUMMARY | 2025-03-09 22:36 | XMS_ITS | Encounter Summary ---
Author Organization [facility] Address [address] [place] [address] Care Team Providers Care Specialty Cook Name Role Phone Aime Davidson MD, Lui Nunez Primary Care Provid er Gay De La Torre(Historical) HOME THEATER EXPERIENCE EXPERT.STORE STOCK HELP Primary Care Provider Unavailable Manuel Kelin MD Unavailable [phone] Manuel Klein MD Primary Care Provider [phone] Manuel Klein MD Unavailable [phone] Source Comments In the event this information is protected by the Federal Confidentiality of Alcohol and Drug AbusePatient Records regulations: The Federal rules restrict any use of the information to criminally investigate or prosecute any alcohol or drug abuse patient.[facility] Encounter Details Date Type Department Care Team (Late st Contact Info) Description 05/01/2015 Get Medical Advice Internal Medicine [facility] [place] [address] Lui Salomon Jr., MD [address] [place] [address] RE: Medication Question (Not Renewal) [...] Description 03/21/2025 9:00 AM EDT Office Visit [facility] [place] [place] [place] [address] 4 week follow up IVIG - pt to see MASON for this appt per Fara 03/21/2025 9:20 AM EDT Visit (SP) Office Hematology/Oncology [address] [place] [address] Jose Cho MD [facility] [place] [address] 4 week follow up IVIG - pt to see MASON for this appt per Fara 03/21/2025 9:40 AM EDT Infusion Center Hematology/Oncology [address] [facility] [place] [address] Gabbi, Chair 4 [address] [place] [place] [address] 4 week follow up IVIG - pt to see MASON for this appt per Fara 04/05/2025 2:00 PM EST Infusion Center Hematology/Oncology [address] [facility] [place] [address] BENLYSTA - 05/03/2025 2:00 PM EST Infusion Center Hematology/Oncology [address] [facility] [place] [address] BENLYSTA - documented as of this encounter Visit Diagnoses Not on filedocumented in this encounter Care Teams Specialty Cook Relationship Specialty Start Date End Date Lui Salomon Jr., MD PCP - General Internal Medicine 05/31/14 07/08/20 Gay De La Torre(Historical), HOME THEATER EXPERIENCE EXPERT.STORE STOCK HELP PCP - General Family Medicine 10/24/21 02/26/22 Manuel Klein MD PCP - General Family Medicine 02/27/22 Manuel Klein MD Referring Family Medicine 02/12/22 Manuel Klein MD [address] [place] [place] [place] [address] Referring Family Medicine 07/06/24 documented as of this encounter
--- OUTSIDE RECORDS SUMMARY | 2025-03-09 22:36 | XMS_ITS | Encounter Summary ---
Author Organization [facility] Address [address] [facility] [place] [address] Care Team Providers Care Strap Machine Operator Name Role Phone House, Charles Culver MD Primary Care Provider Gay De La Torre MD Unavailable [phone] Encounter Details Date Type Department Care Team (Late Contact Info) Description 04/07/2024 Clinisync Result Encounter [facility] External Department Unsolicited Oly Parnell, PA [address] [place] [address] [place] [address] Social History Tobacco Use Types [...] 03/19/2025 10:20 AM EDT Office Visit [facility] [address] [place] [address] Mary Grace Mejias MD [address] [facility] [address] [place] [address] 03/23/2025 11:30 AM EDT Office Visit [facility] [address] [place] [address] Terence Blum MD [address] [facility] [address] [place] [address] 07/25/2025 11:00 AM EST Office Visit [facility] [address] [place] [address] Cynthia English MD [address] [place] [address] documented as of this encounter Procedures Procedure Name Priority Date/Time Associated Diagnosis Comments US PELVIS W/ TRANSVAGINAL 04/07/2024 4:48 AM EST documented in this encounter Results * US PELVIS W/ TRANSVAGINAL (04/07/2024 4:48 AM EST) Anatomical Region Laterality Modality Other 04/07/2024 4:48 AM EST Narrative 04/07/2024 4:51 AM EST [address] [address] Ultrasound Report Signed Patient: JONES PAINAGUA MR#: [id number] : 1980 Acct:[id number] Age/Sex: 43 / F ADM Date: 04/06/24 Loc: LAB Attending Dr: Oly Parnell Ordering Physician: Oly Parnell Date of Service: 04/06/24 Procedure(s): US pelvis w/ transvaginal Accession Number(s): [id number] cc: GAY Mcpherson [address] [address] Patient Name: JONES PANIAGUA MRN: [id number] date: 1980 Sex: F Assigned Patient Location: LAB Current Patient Location: Accession/Order Number: [id number] Exam Date: 04/06/2024 15:45 Report Date: 04/07/2024 [...] Signed By: 04/07/24 0451 DD/ 0448 TD/TT: Administrative Analyst: Procedure Note Radiology, Radiologist, MD - 04/07/2024 The [place] [address] Ultrasound Report Signed Patient: JONES PANIAGUA BMR#: [id number] : 1980Acct:[id number] Age/Sex: 43 / FADM Date: 04/06/24 Loc: LAB Attending Dr: Oly Parnell Ordering Physician: Oly Parnell Date of Service: 04/06/24 Procedure(s): US pelvis w/ transvaginal Accession Number(s): [id number] cc: GAY Mcpherson The [address] [address] Patient Name: JONES PANIAGUA MRN: [id number] date: 1980 Sex: F Assigned Patient Location: LAB Current Patient Location: Accession/Order Number: [id number] Exam Date: 04/06/2024 15:45 Report Date: 04/07/2024 [...] M.D. Signed By:04/07/24 0451 DD/ 0448 TD/TT: Administrative Analyst: us Oly [facility] Final Result documented in this encounter Visit Diagnoses Not on filedocumented in this encounter Care Teams Strap Machine Operator Relationship Specialty Start Date End Date Charles Nicole MD PCP - General Family Medicine 02/09/24 07/17/24 Gay De La Trore MD [address] [place], [place] [address] Referring Physician Family Medicine 07/18/24 documented as of this encounter
--- OUTSIDE RECORDS SUMMARY | 2025-03-09 22:36 | XMS_ITS | Encounter Summary ---
Author Organization [facility] Address [address] [facility] [place] [address] Care Team Providers Care Recruiting Scheduler Name Role Phone House, Charles Culver MD Primary Care Provider Gay De La Torre MD Unavailable [phone] Encounter Details Date Type Department Care Team (Late Contact Info) Description 04/07/2024 Clinisync Result Encounter [facility] External Department Unsolicited Luan Valdivia, DO [address] [facility] [place] [address] Social History Tobacco Use Types [...] 03/19/2025 10:20 AM EDT Office Visit [facility] [address] [place] [address] Mary Grace Mejias MD 112 [facility] [address] [place] [address] 03/23/2025 11:30 AM EDT Office Visit [facility] [address] [facility] [address] [place] [address] Terence Blum MD [address] [place] [address] 07/25/2025 11:00 AM EST Office Visit [facility] [facility] [address] [place] [address] Cynthia English MD [address] [place] [address] documented as of this encounter Procedures Procedure Name Priority Date/Time Associated Diagnosis Comments US BREAST BI LIMITED 04/07/2024 8:40 AM EST documented in this encounter Results * US BREAST BI LIMITED (04/07/2024 8:40 AM EST) Anatomical Region Laterality Modality Other 04/07/2024 8:40 AM EST Narrative 04/07/2024 8:41 AM EST [address] [address] Ultrasound Report Signed Patient: JONES PANIAGUA MR#: [id number] : 1980 Acct:[id number] Age/Sex: 43 / F ADM Date: 04/06/24 Loc: US Attending Dr: Luan Valdivia D.O. Ordering Physician: Luan Valdivia D.O. Date of Service: 04/06/24 Procedure(s): US breast BI limited Accession Number(s): [id number] cc: GAY DE LA TORRE ; Luan Valdivia D.O. Patient Name: JONES PANIAGUA MR#: [id number] : 1980 Exam Date: 04/06/2024 Ordering Doctor: [...] stomach cancer at age 56. LOCATION: [facility] BREAST COMPOSITION: There are scattered areas [...] Signed By: 04/07/24 0841 DD/ 0840 TD/TT: Commercial Property Manager: Procedure Note Radiology, Radiologist, MD - 04/07/2024 [place] [address] Ultrasound Report Signed Patient: JONES PANIAGUA BMR#: [id number] : 1980Acct:[id number] Age/Sex: 43 / FADM Date: 04/06/24 Loc: US Attending Dr: Luan Valdivia D.O. Ordering Physician: Luan Valdivia D.O. Date of Service: 04/06/24 Procedure(s): US breast BI limited Accession Number(s): [id number] cc: GAY DE LA TORRE ; Luan Valdivia D.O. Patient Name: JONES PANIAGUA MR#: [id number] : 1980 Exam Date: 04/06/2024 Ordering Doctor: DR Luan Valdivia . RADIOLOGY REPORT PROCEDURE: MM TOMOSYNTHESIS DIAGNOSTIC BI, 04/06/2024, 15:20 US BREAST BI LIMITED, 04/06/2024, 15:37 COMPARISON: MM TOMOSYNTHESIS SCREENING BI, 09/23/2023. MG MAMM [id number] MARK CAD, 09/01/2022. MG MAMM SCREEN 3D [...] stomach cancer at age 56. LOCATION: [facility] BREAST COMPOSITION: There are scattered areas [...] on 04/07/2024 at 08:29 Approved by: Vito Yuusf M.D. on 04/07/2024 at 08:40 Dictated By: Vito Yusuf M.D. Signed By:04/07/2441 DD/ TD/TT: Commercial Property Manager: us Luan Valdivia DO [facility] Final Result documented in this encounter Visit Diagnoses Not on filedocumented in this encounter Care Teams Recruiting Scheduler Relationship Specialty Start Date End Date Charles Nicole MD PCP - General Family Medicine 02/09/24 07/17/24 Gay De La Torre MD [address] [place] [address] Referring Physician Family Medicine 07/18/24 documented as of this encounter
--- OUTSIDE RECORDS SUMMARY | 2025-03-09 22:36 | XMS_ITS | Encounter Summary ---
Author Organization [facility] Address [address] [facility] [place] [address] Care Team Providers Care Sales And Operations Trainee Name Role Phone House, Charles Culver MD Primary Care Provider Gay De La Torre MD Unavailable [phone] Encounter Details Date Type Department Care Team (Late Contact Info) Description 04/26/2024 Clinisync Result Encounter [facility] Unsolicited Judy Arciniega MD [address], [facility] [address] [place] [address] Social History Tobacco Use Types Packs/Day Years [...] 03/19/2025 10:20 AM EDT Office Visit [facility] [address] [place] [address] Mary Grace Mejias MD [address] [facility] [address] [place] [address] 03/23/2025 11:30 AM EDT Office Visit [facility] [address] [facility] [address] [place] [id number] Terence Blum MD [address] [place] [address] 07/25/2025 11:00 AM EST Office Visit [facility] [address] [place] [phone] Cynthia English MD [address] [place] [address] documented as of this encounter Procedures Procedure Name Priority Date/Time Associated Diagnosis Comments SEGMENTAL BLOOD PRESSURE 04/26/2024 12:29 PM EST documented in this encounter Results * SEGMENTAL BLOOD PRESSURE (04/26/2024 12:29 PM EST) Anatomical Region Laterality Modality Radiographic Melody ging 04/26/2024 12:2 9 PM EST Narrative 04/26/2024 12:31 [place] [address] Vein Report Signed Patient: JONES PANIAGUA MR#: [id number] : 1980 Acct:[id number] Age/Sex: 43 / F ADM Date: 04/26/24 Loc: [facility] Attending Dr: Judy Arciniega M.D. Ordering Physician: Judy Arciniega M.D. Date of Service: 04/26/24 Procedure(s): VC SEGMENTAL PRESSURES Accession Number(s): [id number] cc: GAY DE LA TORRE ; Judy Arciniega M.D. [address] [address] Patient Name: JONES PANIAGUA MRN: [id number] date: 1980 Sex: F Assigned Patient Location: VC Current Patient Location: VC Accession/Order Number: [id number] Exam Date: 04/26/2024 10:45 Report Date: 04/26/2024 12:29 At the request of: JUDY ARCINIEGA Procedure: VC SEGMENTAL PRESSURES EXAM: VC SEGMENTAL PRESSURES HISTORY: I73.9 COMPARISON: None. FINDINGS: Segmental pressures presented as follows (right, left) in mmHg. Brachial: 102, 109 Upper thigh: 175, 183 Lower thigh: 166, 177 Calf: 140, 143 DPA: 123, 148 FACILITIES COORDINATOR: 139, 155 1st Toe: 141, 143 SAMULE: 1.28, 1.42 TBI: 1.29, 1.31 The ABIs [...] Signed By: 04/26/24 1231 DD/ 1229 TD/TT: Printing Shop Supervisor: Procedure Note Radiology, Radiologist, MD - 04/26/2024 [place] [address] Vein Report Signed Patient: JONES PANIAGUA BMR#: [id number] : 1980Acct:[id number] Age/Sex: 43 / FADM Date: 04/26/24 Loc: VC Attending Dr: Judy Arciniega M.D. Ordering Physician: Judy Arciniega M.D. Date of Service: 04/26/24 Procedure(s): VC SEGMENTAL PRESSURES Accession Number(s): [id number] cc: GAY DE LA TORRE ; Judy Arciniega M.D. [address] [place] [address] Patient Name: JONES PANIAGUA MRN: [id number] date: 1980 Sex: F Assigned Patient Location: Current Patient Location: Accession/Order Number: [id number] Exam Date: 04/26/2024 10:45 Report Date: 04/26/2024 12:29 At the request of: JUDY ARCINIEGA Procedure: VC SEGMENTAL PRESSURES EXAM: VC SEGMENTAL PRESSURES HISTORY: I73.9 COMPARISON: None. FINDINGS: Segmental pressures presented as follows (right, left) in mmHg. Brachial: 102, 109 Upper thigh: 175, 183 Lower thigh: 166, 177 Calf: 140, 143 DPA: 123, 148 FACILITIES COORDINATOR: 139, 155 1st Toe: 141, 143 [...] M.D. Signed By:04/26/24 1231 DD/ 1229 TD/TT: Printing Shop Supervisor: us Judy Arciniega MD IMG XR PROCEDURES Final Resu lt documented in this encounter Visit Diagnoses Not on filedocumented in this encounter Care Teams Sales And Operations Trainee Relationship Specialty Start Date End Date Charles Nicole MD PCP - General Family Medicine 02/09/24 07/17/24 Gay De La Torre MD [address] [place], [place] [id number] Referring Physician Family Medicine 07/18/24 documented as of this encounter
--- OUTSIDE RECORDS SUMMARY | 2025-03-09 22:36 | XMS_ITS | Patient Health Record ---
Author Organization The [facility] in [place] Address [address] [place] [address] Care Team Providers Care Tool Sharpener Name Role Phone Britt Gay Primary Care Provider [phone] Víctor Klein [phone] Allergies Allergen (clinical drug ingredient) Drug/Non Drug [...] EIA Negative Negative Performed at: - [facility] [address] [id number] Combining Machine Operator: Doyle Mendenhall PhD, Phone: [phone] Performing Lab: see note LC - [facility] LB LACTATE or LACTIC ACID Reviewed date:02/27/2025 08:35:01 AM Interpretation: Performing Lab: Notes/Report: [facility] [place] , Lactate/Lactic Acid 3.2 0.4-2.0 mmol/L RESULT S CALLED TO MONICA MORA LPN at 0435 Performing Lab: see note ML - [facility] LB GLYCOHEMOGLOBIN A1C Reviewed date:02/26/2025 09:22:15 AM Interpretation: Performing Lab: Notes/Report: [facility] , Glycohemoglobin A1C 8.3 4.5-6.2 % ADA RECOMMENDED LIMIT 4.0 - 6.0 ADA THERAPEUTIC TARGET < 7.0 ACTION SUGGESTED > 7.0 Estimated Average Glucose 192 Performing Lab: see note ML - [facility] LB CBC AUTO DIFF Reviewed date:02/27/2025 04:34:12 PM Interpretation: Performing Lab: Notes/Report: [facility] , White Blood Count 10.2 [...] Performing Lab: see note ML - [facility] LB LACTATE or LACTIC ACID Reviewed date:02/27/2025 04:34:12 PM Interpretation: Performing Lab: Notes/Report: [facility] , Lactate/Lactic Acid 2.1 0.4-2.0 mmol/L RESULT S CALLED TO OLY SMITH LPN Performing Lab: see note - [facility] LB LACTATE or LACTIC ACID Reviewed date:03/02/2025 12:05:01 PM Interpretation: Performing Lab: Notes/Report: N [facility] , Lactate/Lactic Acid 2.1 0.4-2.0 mmol/L RESULT S CALLED TO Gay Enciso Performing Lab: see note ML - [facility] FREE T4 Reviewed date:04/07/2024 08:30:55 AM Interpretation: Performing Lab: Notes/Report: [facility] , Free T4 1.01 0.76-1.46 ng/dL Performing Lab: see note - [facility] GLYCOHEMOGLOBIN A1C Reviewed date:04/07/2024 08:30:55 AM Interpretation: Performing Lab: Notes/Report: [facility] , Glycohemoglobin A1C 6.3 4.5-6.2 % ADA RECOMMENDED LIMIT 4.0 - 6.0 ADA THERAPEUTIC TARGET < 7.0 ACTION SUGGESTED > 7.0 Estimated Average Glucose 134 Performing Lab: see note ML - [facility] PREG QUANT HCG Reviewed date:04/06/2024 03:52:49 PM Interpretation: Performing Lab: Notes/Report: [facility] , HCG Quantitative <1 5-50 0.2-1 WEEK 50-500 1-2 WEEKS 100-5,000 2-3 WEEKS 500-10,000 3-4 WEEKS 1,000-50,000 4-5 WEEKS 10,000-100,000 5-6 WEEKS 15,000-200,000 6-8 WEEKS 10,000-100,000 2-3 MONTHS Performing Lab: see note ML - [facility] TSH Reviewed date:04/06/2024 03:52:49 PM Interpretation: Performing Lab: Notes/Report: [facility] , Thyroid Stimulating Hormone 0.333 0.358-3.740 uIU/mL Performing Lab: see note - [facility] Celiac Disease Comprehensive Reviewed date:04/10/2024 09:26:28 AM [...] Qn, Serum 169 87-352 mg/dL Performed at: [facility] [address] [id number] Combining Machine Operator: Doyle Mendenhall PhD, Phone: [phone] Performing Lab: see note - [facility] LB US pelvis w/ transvaginal Reviewed date:04/07/2024 08:29:59 AM Interpretation: Performing Lab: Notes/Report: Source Facility: [place] [address] Ultrasound Report Signed Patient: JONES PANIAGUA MR#: [id number] : 1980 Acct:[id number] Age/Sex: 43 / F ADM Date: 04/06/24 Loc: LAB Attending Dr: Oly Plascencia Ordering Physician: Oly Plascencia Date of Service: 04/06/24 Procedure(s): US pelvis w/ transvaginal Accession Number(s): [id number] cc: Oly Plascencia; GAY ENCISO [place] [id number] Patient Name: JONES PANIAGUA MRN: [id number] date: 1980 Sex: F Assigned Patient Location: LAB Current Patient Location: Accession/Order Number: [id number] Exam Date: 04/06/2024 15:45 Report Date: 04/07/2024 04:48 At the request of: OLY PARMJIT Procedure: US pelvis w/ transvaginal EXAMINATION: US [...] Signed By: 04/07/24 0451 DD/ 0448 TD/TT: Bottom Finisher: C. Difficile PCR Reviewed date:04/11/2024 04:22:41 PM Interpretation: Performing Lab: Notes/Report: [facility] , C. Difficile PCR NEGATIVE Performing Lab: see note ML - [facility] LB US venous doppler LE BI Reviewed date:04/17/2024 03:30:15 PM Interpretation: Performing Lab: Notes/Report: Source Facility: [facility] [place] [address] [place] [address] Ultrasound Report Signed Patient: JONES PANIAGUA MR#: [id number] : 1980 Acct:[id number] Age/Sex: 43 / F ADM Date: 04/17/24 Loc: RAD Attending Dr: Enma WARREN Ordering Physician: Enma Murphy Date of Service: 04/17/24 Procedure(s): US venous doppler LE LT Accession Number(s): [id number] cc: GAY ENCISO ; Enma Murphy [place] [address] Patient Name: JONES PANIAGUA MRN: [facility]:[id number] date: 1980 Sex: F Assigned Patient Location: [facility] Current Patient Location: [facility] Accession/Order Number: [id number] Exam Date: 04/17/2024 08:15 Report Date: 04/17/2024 [...] Signed By: 04/17/24 1458 DD/ 1456 TD/TT: Bottom Finisher: SEGMENTAL PRESSURES Reviewed date:04/27/2024 10:02:21 AM Interpretation: Performing Lab: Notes/Report: Source Facility: [facility] [place] [address] [place] [address] Vein Report Signed Patient: JONES PANIAGUA MR#: [id number] : 1980 Acct:[id number] Age/Sex: 43 / F ADM Date: 04/26/24 Loc: Attending Dr: Judy Arciniega M.D. Ordering Physician: Judy Arciniega M.D. Date of Service: 04/26/24 Procedure(s): VC SEGMENTAL PRESSURES Accession Number(s): [id number] cc: GAY ENCISO ; Judy Arciniega M.D. The [address] [address] Patient Name: JONES PANIAGUA MRN: [id number] date: 1980 Sex: F Assigned Patient Location: VC Current Patient Location: VC Accession/Order Number: [id number] Exam Date: 04/26/2024 10:45 Report Date: 04/26/2024 12:29 At the request of: JUDY ARCINIEGA Procedure: VC SEGMENTAL PRESSURES EXAM: VC SEGMENTAL PRESSURES HISTORY: I73.9 COMPARISON: None. FINDINGS: Segmental pressures presented as follows (right, left) in mmHg. Brachial: 102, 109 Upper thigh: 175, 183 Lower thigh: 166, 177 Calf: 140, 143 DPA: 123, 148 PAIRER SUBSTANDARD: 139, 155 1st Toe: 141, 143 SAMUEL: [...] Signed By: 04/26/24 1231 DD/ 1229 TD/TT: Bottom Finisher: CBC AUTO DIFF Reviewed date:05/15/2024 01:58:59 PM Interpretation: Performing Lab: Notes/Report: [facility] , White Blood Count 12.6 [...] Performing Lab: see note ML - [facility] LB IGP,Aptima HPV,Age Gdln Reviewed date:06/12/2024 [...] High,A-Abnormal,AA-Criti flakito Abnormal Performed at: 01 [facility] [place] [address] Aparna Solrozano MD, IGP, Aptima HPV, rfx 16/18,45 Note . TESTS RESULT FLAG UNITS REF RANGE LAB DIAGNOSIS: 02 NEGATIVE FOR INTRAEPITHELIAL LESION OR MALIGNANCY. Specimen adequacy: 02 Satisfactory for evaluation. Endocervical and/or squamous metaplastic cells (endocervical component) are present. Performed by: 02 Kenzie Kam, Powerplant Operator (ASCP) . 02 Note: Note 02 The [...] Low,>-Panic High,A-Abnormal,AA-Criti flakito Abnormal Performed at: [address] [address] Aparna Solorzano MD, HPV Aptima Negative Negative This nucleic acid amplification test detects fourteen high- risk HPV types (16,18,31,33,35,39,45,51 ,52,56,58,59,66,68) without differentiation. Performed at: = - [facility] [address] [id number] Combining Machine Operator: Aparna Solorzano MD, Phone: [phone] Performed at: - [facility] [id number] Combining Machine Operator: Aparna Solorzano MD, Phone: [phone] Performing Lab: see note - [facility] LB MM tomosynthesis diagnostic BI Reviewed date:07/14/2024 03:37:52 PM Interpretation: Performing Lab: Notes/Report: Source Facility: [place] [address] Mammography Report Signed Patient: JONES PANIAGUA MR#: [id number] : 1980 Acct:[id number] Age/Sex: 43 / F ADM Date: 06/14/24 Loc: MAMMO Attending Dr: Oly Plascencia Ordering Physician: Oly Plascencia Results: Date of Service: 06/14/24 Follow Up: Procedure(s): MM tomosynthesis diagnostic LT Accession Number(s): [id number] cc: Oly Plascencia; GAY ENCISO Patient Name: JONES PANIAGUA MR#: [id number] : 1980 Exam Date: 06/14/2024 Ordering Doctor: [...] at age 56. LOCATION: [facility] BREAST COMPOSITION: There are scattered [...] Signed By: 06/14/24 1615 DD/ 1614 TD/TT: Bottom Finisher: US breast LT limited Reviewed date:07/14/2024 03:37:19 PM Interpretation: Performing Lab: Notes/Report: Source Facility: [facility]-[address] [place] [address] [place] [address] Ultrasound Report Signed Patient: JONES PANIAGUA MR#: [id number] : 1980 Acct:[id number] Age/Sex: 43 / F ADM Date: 06/14/24 Loc: MAMMO Attending Dr: Oly Plascencia Ordering Physician: Oly Plascencia Date of Service: 06/14/24 Procedure(s): US breast LT limited Accession Number(s): [id number] cc: Oly Plascencia; GAY ENCISO Patient Name: JONES PANIAGUA MR#: [id number] : 1980 Exam Date: 06/14/2024 Ordering Doctor: [...] Signed By: 06/14/24 1505 DD/ 1504 TD/TT: Bottom Finisher: CBC AUTO DIFF Reviewed date:08/08/2024 08:30:17 AM Interpretation: Performing Lab: Notes/Report: [facility] , White Blood Count 12.0 [...] 3/uL Performing Lab: see note ML - [facility] FREE T3 Reviewed date:08/08/2024 02:48:03 PM Interpretation: Performing Lab: Notes/Report: [facility] , Free T3 2.89 2.18-3.98 pg/mL Performing Lab: see note ML - [facility] LB GLYCOHEMOGLOBIN A1C Reviewed date:08/08/2024 02:48:03 PM Interpretation: Performing Lab: Notes/Report: [facility] , Glycohemoglobin A1C 6.7 4.5-6.2 % ADA RECOMMENDED LIMIT 4.0 - 6.0 ADA THERAPEUTIC TARGET < 7.0 ACTION SUGGESTED > 7.0 Estimated Average Glucose 146 Performing Lab: see note ML - [facility] LB LIPID PROFILE Reviewed date:08/08/2024 02:48:03 PM Interpretation: Performing Lab: Notes/Report: [facility] , Triglycerides 249 <=150 mg/dL [...] >11.0 HIGH RISK Performing Lab: see note [facility] LB PROF 14(COMP METB) Reviewed date:08/08/2024 02:48:03 PM Interpretation: Performing Lab: Notes/Report: [facility] , Sodium 141 136-145 mmol/L [...] 0.9 Performing Lab: see note ML - [facility] LB T4 Reviewed date:08/08/2024 02:48:03 PM Interpretation: Performing Lab: Notes/Report: [facility] , T4 Thyroxine 10.40 4.80-13.90 ug/dL Performing Lab: see note ML - [facility] LB TSH Reviewed date:08/08/2024 02:48:03 PM Interpretation: Performing Lab: Notes/Report: [facility] [place] , Thyroid Stimulating Hormone 0.623 0.358-3.740 uIU/mL Performing Lab: see note - [facility] LB VITAMIN D 25 [place] Reviewed date:08/08/2024 02:48:03 PM Interpretation: Performing Lab: Notes/Report: [facility] , Vitamin D 27.7 <20 ng/mL Vit D deficient 20-<30 ng/mL Vit D insufficient 30-100 ng/mL Vit D sufficient >100 ng/mL Potential Toxicity Performing Lab: see note ML - [facility] LB US THYROID Reviewed date:08/27/2024 09:41:57 PM Interpretation: Performing Lab: Notes/Report: Source Facility: [facility]-[address] [place] [address] [place] [address] Ultrasound Report Signed Patient: JONES PANIAGUA MR#: [id number] : 1980 Acct:[id number] Age/Sex: 43 / F ADM Date: 08/24/24 Loc: US Attending Dr: Mary Grace Barfield M.D. Ordering Physician: Mary Grace Barfield M.D. Date of Service: 08/24/24 Procedure(s): US thyroid Accession Number(s): [id number] cc: GAY ENCISO ; Mary Grace Barfield M.D. [place] [address] Patient Name: JONES PANIAGUA MRN: [id number] date: 1980 Sex: F Assigned Patient Location: US Current Patient Location: US Accession/Order Number: [id number] Exam Date: 08/24/2024 09:09 Report Date: 08/24/2024 [...] this was thought to be cystic. The quantitative researcher today considered it solid and it was given TI-RADS 4 classification. No internal color flow is shown. Size has not significantly changed when measuring in a comparable manner. No other nodularity is seen. US/US thyroid IMPRESSION: SIMILAR SMALL LEFT THYROID NODULE. FOLLOW-UP IN ONE YEAR IS SUGGESTED. Impression dictated by: Simin Nelson M.D.08/24/2024 9:22 AM Dictation Location: [place] [address] Electronically authenticated by: [id number] Y Date: 08/24/2024 09:22 Dictated By: Simin Nelson M.D. Signed By: 08/24/24923 DD/ 1 TD/TT: Bottom Finisher: Campylobacter Culture Reviewed date:10/17/2024 09:27:10 AM Interpretation: [...] E coli Shiga Toxin EIA Performed at: [facility] E coli Shiga Toxin EIA E coli Shiga Toxin EIA [address], [place] [id number] E coli Shiga Toxin EIA E coli Shiga Toxin EIA Combining Machine Operator: Doyle Mendenhall PhD, Phone: [phone] E coli Shiga Toxin EIA Performing Lab: see note - [facility] LB SEE REPORT - Barrel Handler Id information not found for OBX-specific automobile damage appraiser legend US abdomen complete Reviewed date:01/01/2025 12:58:33 PM Interpretation: Performing Lab: Notes/Report: Source Facility: [facility]-[address] [place] [address] Ultrasound Report Signed Patient: JONES PANIAGUA MR#: [id number] : 1980 Acct:[id number] Age/Sex: 44 / F ADM Date: 12/30/24 Loc: US Attending Dr: Ingrid Portillo NP Ordering Physician: Ingrid Portillo NP Date of Service: 12/30/24 Procedure(s): US abdomen complete Accession Number(s): [id number] cc: GAY ENCISO ; Ingrid Portillo NP [place] [address] Patient Name: JONES PANIAGUA MRN: [id number] date: 1980 Sex: F Assigned Patient Location: US Current Patient Location: US Accession/Order Number: [id number] Exam Date: 12/30/2024 15:15 Report Date: 12/30/2024 [...] Jr., D.O. 12/30/2024 3:18 PM Dictation Location: [place] [address] Electronically authenticated by: [id number] Y Date: 12/30/2024 15:18 Dictated By: Karel Ricci M.D. Signed By: 12/30/24 1520 DD/ 1518 TD/TT: Bottom Finisher: PROF Schmid(COMP METB) Reviewed date:02/26/2025 09:22:15 AM Interpretation: Performing Lab: Notes/Report: [facility] , Sodium 137 136-145 mmol/L Potassium 3.8 [...] 0.7 Performing Lab: see note ML - [facility] LB CBC AUTO DIFF Reviewed date:02/26/2025 09:22:15 AM Interpretation: Performing Lab: Notes/Report: [facility] , White Blood Count 10.8 4.0-11.0 10 [...] 0.00-0.03 10 3/uL Performing Lab: see note [facility] LACTATE or LACTIC ACID Reviewed date:02/26/2025 09:22:15 AM Interpretation: Performing Lab: Notes/Report: [facility] [place] , Lactate/Lactic Acid 3.3 0.4-2.0 mmol/L RESULTS CALLED TO LISA Patel RN @BY Cresencio Odom MLT at 0037 Performing Lab: see note [facility] PROF CHEM 8 (BAS METB) Reviewed date:02/26/2025 09:22:15 AM Interpretation: Performing Lab: Notes/Report: [facility] , Sodium 138 136-145 mmol/L Potassium 4.2 3.5-5.1 mmol/L Chloride 101 98-107 mmol/L Carbon Dioxide 21.1 21.0-32.0 mmol/L Anion Gap 20.1 Glucose 260 74-106 mg/dL Blood Urea Nitrogen 17.0 7.0-18.0 mg/dL Creatinine 0.81 0.55-1.02 mg/dL Estimated GFR ( Cindi >60 >=60 mL/min/1.73m 2 Estimated GFR (Non- Coretta >60 >=60 mL/min/1.73m 2 BUN Creatinine Ratio 21.0 Calcium 9.3 8.5-10.1 mg/dL Performing Lab: see note [facility] E coli Shiga Toxin EIA Reviewed date:03/05/2025 08:44:56 AM Interpretation: Performing Lab: Notes/Report: [facility] , E coli Shiga Toxin EIA See Below For Report E coli Shiga Toxin EIA WILL FOLLOW E coli Shiga Toxin EIA Negative E coli Shiga Toxin EIA WILL FOLLOW E coli Shiga Toxin EIA Performed at: [facility] E coli Shiga Toxin EIA WILL FOLLOW E coli Shiga Toxin EIA [address], [place] [id number] E coli Shiga Toxin EIA WILL FOLLOW E coli Shiga Toxin EIA Combining Machine Operator: Doyle Mendenhall PhD, Phone: [phone] E coli Shiga Toxin EIA WILL FOLLOW Performing Lab: see note - [facility] LB SEE REPORT - Barrel Handler Id information not found for OBX-specific automobile damage appraiser legend Salmonella/Shigella Screen Reviewed date:03/05/2025 08:44:56 AM Interpretation: Performing Lab: Notes/Report: [facility] , Salmonella/Shigella Screen See Below For Report Salmonella/Shigella Screen Salmonella/Shigella Screen No Salmonella or Shigella recovered. Salmonella/Shigella Screen Performing Lab: see note - [facility] LB Campylobacter Culture Reviewed date:03/05/2025 08:44:56 AM Interpretation: Performing Lab: Notes/Report: [facility] , Campylobacter Culture See Below For Report Campylobacter Culture No Campylobacter species isolated. Performing Lab: see note - [facility] LB HCG Qualitative* Reviewed date:02/26/2025 09:22:15 AM Interpretation: Performing Lab: Notes/Report: [facility] , HCG Qualitative NEGATIVE NEGATIVE Performing Lab: see note ML - [facility] LB LACTATE or LACTIC ACID Reviewed date:02/27/2025 08:35:01 AM Interpretation: Performing Lab: Notes/Report: [facility] , Lactate/Lactic Acid 2.3 0.4-2.0 mmol/L RESULTS CALLED TO OLY PATEL RN @BY Miroslava Aguilar at 1901 Performing Lab: see note ML - [facility] LB LIPASE Reviewed date:02/27/2025 08:35:01 AM Interpretation: Performing Lab: Notes/Report: [facility] , Lipase 41.0 16.0-77.0 U/L Performing Lab: see note ML - [facility] LB MAGNESIUM Reviewed date:02/27/2025 08:35:01 AM Interpretation: Performing Lab: Notes/Report: [facility] , Magnesium 1.7 1.8-2.4 mg/dL Performing Lab: see note ML - [facility] LB C. Difficile PCR Reviewed date:02/27/2025 08:35:01 AM Interpretation: Performing Lab: Notes/Report: [facility] , C. Difficile PCR NEGATIVE Performing Lab: see note ML - [facility] LB UA Micro, reflex to culture Reviewed date:02/27/2025 08:35:01 AM Interpretation: Performing Lab: Notes/Report: [facility] , Color Urine LT. YELLOW YELLOW Clarity Urine CLEAR CLEAR Specific [place] Urine 1.025 1.005-1.025 pH Urine 5.5 5.0-9.0 Protein Urine NEGATIVE NEG/TRACE mg/dL Glucose Urine UA NEGATIVE NEGATIVE mg/dL Bilirubin Urine NEGATIVE NEGATIVE Ketones Urine NEGATIVE NEGATIVE mg/dL Blood Urine NEGATIVE NEGATIVE Nitrite Urine NEGATIVE NEGATIVE Urobilinogen Urine 0.2 0.2-1.0 EU/dL Leukocyte Esterase Urine TRACE NEGATIVE WBC Urine 2-5 NONE SEEN #/HPF RBC Urine 2-5 0-2 #/HPF Bacteria Urine SMALL NONE SEEN #/HPF Mucus Urine NONE SEEN NONE SEEN Squamous Epithelial Cell Urine FEW NONE/RARE #/LPF Crystals Seen? None Seen None Seen #/HPF Cast Seen? NONE SEEN NONE SEEN #/LPF Urine Culture Indicated YES-[facility] [place] Performing Lab: see note ML - [facility] LB Urine Culture - FR Reviewed date:03/01/2025 03:16:08 PM Interpretation: Performing Lab: Notes/Report: [facility] , Urine Culture - [facility] [place] See Below For Report Urine Culture - [facility] [place] 20,000 colonies/ml mixed bacterial skin contaminants Urine Culture - [facility] [place] including gram negative bacilli - 2 Days Urine Culture - FR 20,000 colonies/ml mixed bacterial skin contaminants Urine Culture - [facility] [place] Urine Culture - FR 20,000 colonies/ml mixed bacterial skin contaminants Urine Culture - [facility] [place] Testing performed at [facility] Urine Culture - FR 20,000 colonies/ml mixed bacterial skin contaminants Urine Culture - [facility] [place] [address] [place] [address] Urine Culture - [facility] [place] 20,000 colonies/ml mixed bacterial skin contaminants Performing Lab: see note ML - [facility] LB PROF 14(COMP METB) Reviewed date:02/27/2025 08:35:01 AM Interpretation: Performing Lab: Notes/Report: [facility] , Sodium 140 136-145 mmol/L Potassium 3.5 3.5-5.1 mmol/L Chloride 104 98-107 mmol/L Carbon Dioxide 24.3 21.0-32.0 mmol/L Anion Gap 15.2 Glucose 153 74-106 mg/dL Blood Urea Nitrogen 9.0 7.0-18.0 mg/dL Creatinine 0.66 0.55-1.02 mg/dL Estimated GFR ( Cindi >60 >=60 mL/min/1.73m 2 Estimated GFR (Non- Coretta >60 >=60 mL/min/1.73m 2 BUN Creatinine Ratio 13.6 Calcium 8.7 8.5-10.1 mg/dL Bilirubin Total 0.2 0.2-1.0 mg/dL Aspartate Amino Transferase 15 15-37 U/L Alanine Aminotransferase 60 14-59 U/L Alkaline Phosphatase 82 46-116 U/L Total Protein 7.7 6.4-8.2 g/dL Albumin Level 3.3 3.4-5.0 g/dL Globulin 4.4 Albumin Globulin Ratio 0.8 Performing Lab: see note ML - [facility] LB PROF 14(COMP METB) Reviewed date:02/27/2025 04:34:12 PM Interpretation: Performing Lab: Notes/Report: [facility] , Sodium 138 136-145 mmol/L Potassium 3.8 3.5-5.1 mmol/L Chloride 103 98-107 mmol/L Carbon Dioxide 24.4 21.0-32.0 mmol/L Anion Gap 14.4 Glucose 189 74-106 mg/dL Blood Urea Nitrogen 13.0 7.0-18.0 mg/dL Creatinine 0.61 0.55-1.02 mg/dL Estimated GFR ( Cindi >60 >=60 mL/min/1.73m 2 Estimated GFR (Non- Coretta >60 >=60 mL/min/1.73m 2 BUN Creatinine Ratio 21.3 Calcium 9.0 8.5-10.1 mg/dL Bilirubin Total 0.2 0.2-1.0 mg/dL Aspartate Amino Transferase 9 15-37 U/L Alanine Aminotransferase 49 14-59 U/L Alkaline Phosphatase 83 46-116 U/L Total Protein 7.4 6.4-8.2 g/dL Albumin Level 3.0 3.4-5.0 g/dL Globulin 4.4 Albumin Globulin Ratio 0.7 Performing Lab: see note ML - [facility] LB CBC AUTO DIFF Reviewed date:03/05/2025 08:44:56 AM Interpretation: Performing Lab: Notes/Report: [facility] , White Blood Count 10.3 4.0-11.0 10 3/uL Red Blood Count 4.25 4.20-5.40 10 6/uL Hemoglobin 13.6 12.0-16.0 g/dL Hematocrit 40.9 36.0-48.0 % Mean Corpuscular Volume 96.2 81.0-99.0 fL Mean Corpuscular Hemoglobin 32.0 26.7-34.0 pg Mean Corpuscular HGB Conc 33.3 29.9-35.2 g/dL Red Cell Distribution Width 14.1 11.0-15.0 % Platelet Count 289 150-450 10 3/uL Mean Platelet Volume 10.4 9.5-13.5 fL Neutrophils Percent Auto 74.0 43.0-75.0 % Lymphocytes Percent Auto 16.6 20.5-60.0 % Monocytes Percent Auto 6.6 1.7-12.0 % Eosinophils Percent Auto 0.9 0.9-7.0 % Basophils Percent Auto 0.5 0.2-2.0 % Immature Granulocytes Pct Auto 1.4 0.0-0.5 % Neutrophils Absolute Auto 7.7 1.4-6.5 10 3/uL Lymphocytes Absolute Auto 1.7 1.2-3.8 10 3/uL Monocytes Absolute Auto 0.7 0.3-0.8 10 3/uL Eosinophils Absolute Auto 0.1 0.0-0.7 10 3/uL Basophils Absolute Auto 0.1 0.0-0.1 10 3/uL Immature Granulocytes Abs Auto 0.14 0.00-0.03 10 3/uL Performing Lab: see note ML - [facility] LB LACTATE or LACTIC ACID Reviewed date:03/05/2025 08:44:56 AM Interpretation: Performing Lab: Notes/Report: [facility] , Lactate/Lactic Acid 3.6 0.4-2.0 mmol/L RESULT S CALLED TO GAY ENCISO Performing Lab: see note ML - [facility] LB PROF CHEM 8 (BAS METB) Reviewed date:03/05/2025 08:44:56 AM Interpretation: Performing Lab: Notes/Report: [facility] , Sodium 140 136-145 mmol/L Potassium 4.0 3.5-5.1 mmol/L Chloride 103 98-107 mmol/L Carbon Dioxide 22.1 21.0-32.0 mmol/L Anion Gap 18.9 Glucose 216 74-106 mg/dL Blood Urea Nitrogen 8.0 7.0-18.0 mg/dL Creatinine 0.61 0.55-1.02 mg/dL Estimated GFR ( Cindi >60 >=60 mL/min/1.73m 2 Estimated GFR (Non- Coretta >60 >=60 mL/min/1.73m 2 BUN Creatinine Ratio 13.1 Calcium 8.8 8.5-10.1 mg/dL Performing Lab: see note ML - [facility] LB UA RANDOM W or MICROSCOPIC Reviewed date:03/05/2025 08:44:56 AM Interpretation: Performing Lab: Notes/Report: [facility] [place] , Color Urine LT. YELLOW YELLOW Clarity Urine CLEAR CLEAR Specific [place] Urine >=1.030 1.005-1.025 pH Urine 6.0 5.0-9.0 Protein Urine TRACE NEG/TRACE mg/dL Glucose Urine UA 250 NEGATIVE mg/dL Bilirubin Urine NEGATIVE NEGATIVE Ketones Urine NEGATIVE NEGATIVE mg/dL Blood Urine NEGATIVE NEGATIVE Nitrite Urine NEGATIVE NEGATIVE Urobilinogen Urine 0.2 0.2-1.0 EU/dL Leukocyte Esterase Urine SMALL NEGATIVE WBC Urine 5-10 NONE SEEN #/HPF RBC Urine 0-2 0-2 #/HPF Bacteria Urine SMALL NONE SEEN #/HPF Mucus Urine TRACE NONE SEEN Squamous Epithelial Cell Urine MANY NONE/RARE #/LPF Crystals Seen? None Seen None Seen #/HPF Cast Seen? NONE SEEN NONE SEEN #/LPF Urine Culture Indicated YES-[facility] [place] [facility] Performing Lab: see note ML - [facility] LB Urine Culture - [facility] Reviewed date:03/09/2025 11:24:45 AM Interpretation: Performing Lab: Notes/Report: [facility] , Urine Culture - [facility] See Below For Report Urine Culture - FR Testing performed at [facility] O:CANALB Isolated Urine Culture - FR [place] Count Urine Culture - FR [address] [place] [address] Urine Culture - FR Testing performed at [facility] O:CANALB Isolated Urine Culture - FR [place] Count Urine Culture - [facility] See Below For Report Urine Culture - [facility] Testing performed at [facility] O:CANALB Isolated Urine Culture - [facility] [place] Count Urine Culture - [facility] See Below For Report Urine Culture - [facility] Testing performed at [facility] O:CANALB Isolated Urine Culture - [facility] [place] Count Urine Culture - [facility] >100,000 Urine Culture - [facility] Testing performed at [facility] O:CANALB Isolated Urine Culture - [facility] [place] Count Performing Lab: see note ML - [facility] LB XR chest 1V Reviewed date:03/05/2025 08:44:56 AM Interpretation: Performing Lab: Notes/Report: Source Facility: [place] [address] XRay Report Signed Patient: JONES PANIAGUA MR#: [id number] : 1980 Acct:[id number] Age/Sex: 44 / F ADM Date: 03/03/25 Loc: ER Attending Dr: Ordering Physician: Zoe Lopez M.D. Date of Service: 03/03/25 Procedure(s): XR chest 1V Accession Number(s): [id number] cc: GAY ENCISO ; Zoe Lopez M.D. [place] [address] Patient Name: JONES PANIAGUA MRN: [id number] date: 1980 Sex: F Assigned Patient Location: ER Current Patient Location: ER Accession/Order Number: [id number] Exam Date: 03/03/2025 16:20 Report Date: 03/03/2025 17:30 At the request of: ZOE LOPEZ MD Procedure: XR chest 1V PA CHEST: CLINICAL HISTORY: SOB COMPARISON: CT chest 12/11/2023 Unremarkable cardiomediastinal silhouette. Lungs are clear. No effusion or pneumothorax. Overlying soft tissues degrades evaluation of the LUNG BASES. XR/XR chest 1V IMPRESSION: NEGATIVE ACUTE PLEURAL-PARENCHYMAL DISEASE. Impression dictated by: Rafal Cox M.D. 03/03/2025 5:30 PM Dictation Location: [place] [address] Electronically authenticated by: [id number] Y Date: 03/03/2025 17:30 Dictated By: Rafal Cox M.D. Signed By: 03/03/251731 DD/ 29 TD/TT: Bottom Finisher: LACTATE or LACTIC ACID Reviewed date:03/05/2025 08:44:56 AM Interpretation: Performing Lab: Notes/Report: [facility] , Lactate/Lactic Acid 2.8 0.4-2.0 mmol/L RESULT S CALLED TO DR. LOPEZ Performing Lab: see note ML - [facility] LB LACTATE or LACTIC ACID Reviewed date:03/08/2025 11:03:04 AM Interpretation: Performing Lab: Notes/Report: N [facility] [place] , Lactate/Lactic Acid 1.8 0.4-2.0 mmol/L Performing Lab: see note ML - [facility] LB LACTATE or LACTIC ACID (Not yet reviewed by provider) Interpretation: Performing Lab: Notes/Report: N [facility] [place] , Lactate/Lactic Acid 3.0 0.4-2.0 mmol/L RESULT S CALLED TO Gay Enciso Performing Lab: see note ML - [facility] LB UA RANDOM W or MICROSCOPIC ( Not yet reviewed by provider) Interpretation: Performing Lab: Notes/Report: [facility] , Color Urine YELLOW YELLOW Clarity Urine CLEAR CLEAR Specific [place] Urine 1.025 1.005-1.025 pH Urine 5.5 5.0-9.0 Protein Urine NEGATIVE NEG/TRACE mg/dL Glucose Urine UA 100 NEGATIVE mg/dL Bilirubin Urine NEGATIVE NEGATIVE Ketones Urine NEGATIVE NEGATIVE mg/dL Blood Urine NEGATIVE NEGATIVE Nitrite Urine NEGATIVE NEGATIVE Urobilinogen Urine 0.2 0.2-1.0 EU/dL Leukocyte Esterase Urine NEGATIVE NEGATIVE WBC Urine NONE SEEN NONE SEEN #/HPF RBC Urine 0-2 0-2 #/HPF Bacteria Urine TRACE NONE SEEN #/HPF Mucus Urine NONE SEEN NONE SEEN Squamous Epithelial Cell Urine MODERATE NONE/RARE #/LPF Crystals Seen? None Seen None Seen #/HPF Cast Seen? NONE SEEN NONE SEEN #/LPF Urine Culture Indicated ALREADY ORDERED Performing Lab: see note ML - [facility] LB Urine Culture - [facility] [place] (Not ye t reviewed by provider) Interpretation: Performing Lab: Notes/Report: [facility] , Urine Culture - [facility] [place] See Below For Report Urine Culture - [facility] [place] PEND Pending - Specimen sent to [facility]^Pending - Specimen sent to [facility] Performing Lab: see note ML - [facility] LB XR thoracic spine 3V (Not ye t reviewed by provider) Interpretation: Performing Lab: Notes/Report: Source Facility: [facility] [place] [address] [place] [address] XRay Report Signed Patient: JONES PANIAGUA MR#: [id number] : 1980 Acct:[id number] Age/Sex: 44 / F ADM Date: Loc: [facility] Attending Dr: KIMBERLY FLORES Ordering Physician: KIMBERLY FLORES Date of Service: 03/09/25 Procedure(s): XR thoracic spine 3V Accession Number(s): [id number] cc: GAY ENCISO ; KIMBERLY FLORES [place] [address] Patient Name: JONES PANIAGUA MRN: [id number] date: 1980 Sex: F Assigned Patient Location: [facility] Current Patient Location: [facility] Accession/Order Number: [id number] Exam Date: 03/09/2025 17:42 Report Date: 03/09/2025 21:50 At the request of: KIMBERLY FLORES Procedure: XR thoracic spine 3V THORACIC SPINE - - 3 views CLINICAL HISTORY: Mid Back Pain COMPARISON: 09/28/2023 FINDINGS: Vertebral body heights maintained. Minimal intermargin plate spurring involving the lower thoracic levels. Minimal facet arthropathy. No definite acute fracture malalignment. XR/XR thoracic spine 3V IMPRESSION: Minimal degenerative changes. Negative acute fracture malalignment. Impression dictated by: Rafal Cox M.D. 03/09/2025 9:50 PM Dictation Location: [place] [address] Electronically authenticated by: [id number] Y Date: 03/09/2025 21:50 Dictated By: Rafal Cox M.D. Signed By: 03/09/252151 DD/ 49 TD/TT: Bottom Finisher: LACTATE or LACTIC ACID Reviewed date:03/06/2025 08:53:27 AM Interpretation: Performing Lab: Notes/Report: N [facility] [place] , Lactate/Lactic Acid 2.2 0.4-2.0 mmol/L RESULT S CALLED TO MONICA MORA LPN at 1050 Performing Lab: see note - [facility] LB Blood Culture 2 Reviewed date:03/05/2025 08:44:56 AM Interpretation: Performing Lab: Notes/Report: LEFT AC [facility] [place] , Blood Culture 2 See Below For Report Blood Culture 2 NG5D NO GROWTH AT 5 DAYS.^NO GROWTH AT 5 DAYS. Performing Lab: see note - [facility] LB Blood Culture 1 Reviewed date:03/05/2025 08:44:56 AM Interpretation: Performing Lab: Notes/Report: RIGHT AC [facility] [place] , Blood Culture 1 See Below For Report Blood Culture 1 NG5D NO GROWTH AT 5 DAYS.^NO GROWTH AT 5 DAYS. Performing Lab: see note - [facility] LB PROF 14(COMP METB) Reviewed date:02/27/2025 08:35:01 AM Interpretation: Performing Lab: Notes/Report: [facility] , Sodium 142 136-145 mmol/L Potassium 3.7 3.5-5.1 mmol/L Chloride 104 98-107 mmol/L Carbon Dioxide 23.4 21.0-32.0 mmol/L Anion Gap 18.3 Glucose 212 74-106 mg/dL Blood Urea Nitrogen 11.0 7.0-18.0 mg/dL Creatinine 0.76 0.55-1.02 mg/dL Estimated GFR ( Cindi >60 >=60 mL/min/1.73m 2 Estimated GFR (Non- Coretta >60 >=60 mL/min/1.73m 2 BUN Creatinine Ratio 14.5 Calcium 9.1 8.5-10.1 mg/dL Bilirubin Total 0.2 0.2-1.0 mg/dL Aspartate Amino Transferase 19 15-37 U/L Alanine Aminotransferase 60 14-59 U/L Alkaline Phosphatase 85 46-116 U/L Total Protein 7.9 6.4-8.2 g/dL Albumin Level 3.2 3.4-5.0 g/dL Globulin 4.7 Albumin Globulin Ratio 0.7 Performing Lab: see note ML - [facility] LB CBC AUTO DIFF Reviewed date:02/27/2025 08:35:01 AM Interpretation: Performing Lab: Notes/Report: [facility] , White Blood Count 11.6 4.0-11.0 10 3/uL Red Blood Count 4.31 4.20-5.40 10 6/uL Hemoglobin 13.9 12.0-16.0 g/dL Hematocrit 41.3 36.0-48.0 % Mean Corpuscular Volume 95.8 81.0-99.0 fL Mean Corpuscular Hemoglobin 32.3 26.7-34.0 pg Mean Corpuscular HGB Conc 33.7 29.9-35.2 g/dL Red Cell Distribution Width 13.9 11.0-15.0 % Platelet Count 265 150-450 10 3/uL Mean Platelet Volume 10.1 9.5-13.5 fL Neutrophils Percent Auto 69.0 43.0-75.0 % Lymphocytes Percent Auto 20.6 20.5-60.0 % Monocytes Percent Auto 7.1 1.7-12.0 % Eosinophils Percent Auto 1.2 0.9-7.0 % Basophils Percent Auto 0.5 0.2-2.0 % Immature Granulocytes Pct Auto 1.6 0.0-0.5 % Neutrophils Absolute Auto 8.0 1.4-6.5 10 3/uL Lymphocytes Absolute Auto 2.4 1.2-3.8 10 3/uL Monocytes Absolute Auto 0.8 0.3-0.8 10 3/uL Eosinophils Absolute Auto 0.1 0.0-0.7 10 3/uL Basophils Absolute Auto 0.1 0.0-0.1 10 3/uL Immature Granulocytes Abs Auto 0.19 0.00-0.03 10 3/uL Performing Lab: see note - [facility] LB E coli Shiga Toxin EIA Reviewed date:10/26/2024 03:06:58 PM Interpretation: Performing Lab: Notes/Report: [facility] , E coli Shiga Toxin EIA See Below For Report E coli Shiga Toxin EIA E coli Shiga Toxin EIA Negative E coli Shiga Toxin EIA E coli Shiga Toxin EIA Performed at: [facility] E coli Shiga Toxin EIA E coli Shiga Toxin EIA [address], [place] [id number] E coli Shiga Toxin EIA E coli Shiga Toxin EIA Combining Machine Operator: Doyle Mendenhall PhD, Phone: [phone] E coli Shiga Toxin EIA Performing Lab: see note [facility] LB SEE REPORT - Barrel Handler Id information not found for OBX-specific automobile damage appraiser legend C. Difficile PCR Reviewed date:10/25/2024 10:18:31 AM Interpretation: Performing Lab: Notes/Report: [facility] , C. Difficile PCR NEGATIVE Performing Lab: see note [facility] LB Salmonella/Shigella Screen Reviewed date:10/17/2024 09:27:10 AM Interpretation: Performing Lab: Notes/Report: [facility] , Salmonella/Shigella Screen See Below For Report Salmonella/Shigella Screen Salmonella/Shigella Screen No Salmonella or Shigella recovered. Salmonella/Shigella Screen Performing Lab: see note [facility] LB E coli Shiga Toxin EIA Reviewed date:10/17/2024 09:27:10 AM Interpretation: Performing Lab: Notes/Report: [facility] , E coli Shiga Toxin EIA See Below For Report E coli Shiga Toxin EIA Negative E coli Shiga Toxin EIA Performed at: [facility] E coli Shiga Toxin EIA Negative E coli Shiga Toxin EIA [address], [place] [id number] E coli Shiga Toxin EIA Negative E coli Shiga Toxin EIA Combining Machine Operator: Doyle Mendenhall PhD, Phone: [phone] E coli Shiga Toxin EIA Negative Performing Lab: see note [facility] LB SEE REPORT - Barrel Handler Id information not found for OBX-specific automobile damage appraiser legend Vitamin B12 Reviewed date:08/15/2024 01:02:11 PM Interpretation: Performing Lab: Notes/Report: [facility] , Vitamin B12 [phone] pg/mL Performed at: [facility] [address], [place] [id number] Combining Machine Operator: Doyle Mendenhall PhD, Phone: [phone] Performing Lab: see note [facility] LB IRON Reviewed date:08/08/2024 02:48:03 PM Interpretation: Performing Lab: Notes/Report: [facility] , Iron 135.0 50.0-170.0 ug/dL Performing Lab: see note - [facility] LB INSULIN Reviewed date:08/15/2024 01:02:11 PM Interpretation: Performing Lab: Notes/Report: [facility] , Insulin 24.1 2.6-24.9 uIU/mL Performed at: - [facility] [id number] Combining Machine Operator: Doyle Mendenhall PhD, Phone: [phone] Performing Lab: see note - [facility] LB MM tomosynthesis diagnostic BI Reviewed date:04/07/2024 08:58:17 AM Interpretation: Performing Lab: Notes/Report: Source Facility: [place] [address] Mammography Report Signed Patient: JONES PANIAGUA MR#: [id number] : 1980 Acct:[id number] Age/Sex: 43 / F ADM Date: 04/06/24 Loc: US Attending Dr: Luan Valdivia D.O. Ordering Physician: Luan Valdivia D.O. Results: Date of Service: 04/06/24 Follow Up: Procedure(s): MM tomosynthesis diagnostic BI Accession Number(s): [id number] cc: GAY ENCISO ; Luan Valdiiva D.O. Patient Name: JONES PANIAGUA MR#: [id number] : 1980 Exam Date: 04/06/2024 Ordering Doctor: [...] at age 56. LOCATION: [facility] BREAST COMPOSITION: There are scattered [...] M.D. Signed By: 04/07/24 0841 DD/ TD/TT: Bottom Finisher: US breast BI limited Reviewed date:04/07/2024 08:58:17 AM Interpretation: Performing Lab: Notes/Report: Source Facility: [place] [address] Ultrasound Report Signed Patient: JONES PANIAGUA MR#: [id number] : 1980 Acct:[id number] Age/Sex: 43 / F ADM Date: 04/06/24 Loc: US Attending Dr: Luan Valdivia D.O. Ordering Physician: Luan Valdivia D.O. Date of Service: 04/06/24 Procedure(s): US breast BI limited Accession Number(s): [id number] cc: GAY ENCISO ; Luan Valdivia D.O. Patient Name: JONES PANIAGUA MR#: [id number] : 1980 Exam Date: 04/06/2024 Ordering Doctor: [...] at age 56. LOCATION: [facility] BREAST COMPOSITION: There are scattered [...] Signed By: 04/07/24 0841 DD/ 0840 TD/TT: Bottom Finisher: Prothrombin Time INR Reviewed date:04/06/2024 03:52:49 PM Interpretation: Performing Lab: Notes/Report: [facility] , Prothrombin Time 9.6 9.0-11.6 sec INR <0.93 DESIRED INR: 2.0-3.0 CONDITIONS NOT LISTED BELOW 2.5-3.5 FOR PROSTHETIC HEART VALVE REPLACEMENT 2.5-3.5 RECURRENT THROMBOSIS Performing Lab: see note ML - [facility] LB PTT Reviewed date:04/06/2024 03:52:49 PM Interpretation: Performing Lab: Notes/Report: [facility] , Partial Thromboplastin Time 25.6 22.3-36.2 sec Performing Lab: see note ML - [facility] LB CBC AUTO DIFF Reviewed date:04/06/2024 03:52:49 PM Interpretation: Performing Lab: Notes/Report: [facility] , White Blood Count 11.4 [...] Performing Lab: see note ML - [facility] LB Reason For Referral Diagnosis 1 Elevated lactic acid level (R79.89) Diagnosis 2 Pilonidal abscess (L 05.01) Referral Organization [facility] Referring Provider First Name Gay Referring Provider Last Name Britt Referring Provider Speciality Family Med icinan Referred Provider Jazmyn Key Referred Provider Specialty Internal Med icine Referral Priority Routine Medications Medication SIG (Take, Route, Frequency, Duration) Notes Start Date End Date Status Hydroxychloroquine Sulfate 400 MG 1 capsule Orally once daily; Duration: 30 days Active Folic Acid Active Voltaren 1 % as directed Externally as needed 02/01/2024 Active Metoprolol Tartrate 50 MG TAKE 2 TABLETS BY MOUTH TWICE A DAY WITH FOOD; Duration: 90 days Active KlonoPIN 0.5 MG 1 tablet Orally Once a day prn; Duration: 30 days F41.9 12/07/2024 Active Vitamin D (Ergocalciferol) 1.25 MG (53866 UT) 1 capsule Orally once weekly; Duration: 28 days Active Cymbalta 20 MG 1 capsule Orally Once a day; Duration: 30 days 02/01/2024 Active Trulicity 0.75 MG/0.5ML as directed Subcutaneous weekly; Duration: 28 days 03/05/2025 Active Cyanocobalamin 1000 MCG/ML 1 mL Injectio n monthly 12/28/2023 Active Triamcinolone Acetonide 0.025 % APPLY TO AFFECTED AREA TWICE DAILY NEEDED FOR 30 DAYS External; Duration: 30 Days Active Fluocinonide 0.05 % 1 application Externally Once a day- as needed; Duration: 30 days Active Nystatin 017596 UNIT/ML 4 mL Mouth/Throa t Four times a day; Duration: 7 days Active Pantoprazole Sodium 40 MG 1 tablet 1/2 t o 1 hour before morning meal Orally Once a day; Duration: 90 days 07/27/2024 Active Mounjaro 2.5 MG/0.5ML as directed Subcutaneous weekly; Duration: 28 days call for next dose 02/26/2025 Active Clobetasol Propionate 0.05 % APPLY TO SCALP IN SHOWER 3 TO 4 TIMES A WEEK External; Duration: 30 Days Active Pregabalin 75 MG 3 capsule Orally once daily- as needed; Duration: 30 days PRN Active Benlysta 200 MG/ML 200mg Subcutaneous once weekly Active predniSONE 10 MG 1 tablet Orally once daily; Duration: 30 days Active Social History Tobacco Use: Social [...] Status Risk Notes Problem Chronic fatigue syndrome (30884008) Chronic fatigue (780.79) Active confirmed Problem Non-toxic single thyroid nodule (256436720) Nontoxic single thyroid nodule (E04.1) Active confirmed Problem Sleep apnea (37257911) Sleep salesperson books ea, unspecified (G47.30) Active confirmed Problem Generalized enlarged lymph nodes (259182862) Generalized enlarged lymph nodes (R59.1) Active confirmed Problem Hypertension (65608850) Hyperten vickie (I10) Active confirmed Problem Gastroesophageal ref lux disease (073726461) GERD (gastroesophag eal reflux disease) (K21.9) Active confirmed Problem Anxiety (89597178) Anxiety (F41.9) Active confirmed Problem Type 2 diabetes mellitus (92270563) Type 2 diabetes mellitus (E11.9) Active confirmed Problem Leukocytosis (554422854) Elevated WBC count (D72.829) Active confirmed Problem Thyroid nodule (008582072) Thyroid nodule (E04.1) Active confirmed Problem Fatty liver (942453379) Fatty li daniel (K76.0) Active confirmed Problem Lupus (214854581) Lupus (M32.9) Active confirme d Problem Abdominal pressure (561844941) Abdominal pressure (R10.9) Active confirmed Problem Raynaud's disease (654105798) Raynauds phenomenon (I73.00) Active confirmed Problem Pure hypercholesterolemia (184493702) Pure hypercholester olemia, unspecified (E78.00) Active confirmed Problem Prediabetes (856224622) Pre-diab etes (R73.03) Active confirmed Vital Signs Temperature 98.2 degrees Fahrenheit 05/15/2024 Blood pressure diastolic 78 mm Hg 03/08/2025 Height 67 in 03/08/2025 Blood pressure systolic 130 mm Hg 03/08/2025 Weight 286.8 lbs 03/08/2025 BMI 44.91 kg/m2 03/08/2025 Encounters Encounter Location Date Provider Diagnosis [facility] [address] [place] [address] 05/15/2024 Gay Enciso Enlarged lymph nodes R59.9 and C. difficile diarrhea A04.72 [facility] [address] [place] [address] 03/08/2025 Gay Enciso Elevated lactic acid level R79.89 ; Pilonidal abscess L05.01 and Type 2 diabetes mellitus E11.9 [place] [address] [place] [address] 07/27/2024 Gay Enciso GERD (gastroesophage al reflux disease) K21.9 and Anxiety F41.[address] [address] 08/11/2024 Víctor Hoy Generalized enlarged lymph nodes R59.1 and Elevated WBC count D72.829 [place] [address] [place] [address] 04/11/2024 Gay Enciso [facility] [address] [place] [facility] [place] [address] 04/17/2024 Gay Enciso [facility] [address] [place] [address] 04/17/2024 Gay Enciso [facility] [address] [place] [place] [address] 04/28/2024 Gay Enciso Hypertension I10 [facility] [address] [place] [address] 04/28/2024 Gay Enciso Anxiety F41.9 [place] [address] [place] [address] 05/01/2024 Gay Enciso Hypertension I10 and Oral candidiasis B37.0 [facility] [address] [place] [address] 05/15/2024 Gay Enciso [facility] [address] [place] [facility] [place] [place] [address] 06/16/2024 Gay Enciso Hypertension I10 [facility] [address] [place] [address] 07/04/2024 Gay Enciso [facility] [address] [place] [address] 07/27/2024 Gay Enciso [facility] [address] [place] [address] 08/16/2024 Gay Enciso Pre-diabetes R73.03 [facility] [address] [place] [address] 08/24/2024 Gay Enciso [facility] [address] [place] [address] 09/01/2024 Gay Enciso Anxiety F41.9 [facility] [address] [place] [address] 10/06/2024 Gay Enciso Anxiety F41.9 and Diarrhea R19.7 [facility] [address] [place] [address] 10/13/2024 Gay Enciso [facility] [address] [place] [address] 10/13/2024 Gay Enciso [facility] [address] [place] [address] 10/25/2024 Gay Enciso [facility] [address] [place] [address] 10/26/2024 Gay Enciso [facility] [address] [place] [address] 10/30/2024 Gay Enciso Thrush B37.0 [facility] [address] [place] [address] 11/03/2024 Gay Enciso [facility] [address] [place] [address] 11/06/2024 Víctor Hoy Thrush B37.0 and Anxiety F41.9 [facility] [address] [place] [address] 12/05/2024 Gay Enciso Anxiety F41.9 [facility] [address] [place] [address] 12/11/2024 Gay Enciso [facility] [address] [place] [address] 02/09/2025 Gay Enciso Jaw pain R68.84 [facility] [address] [place] [address] 02/23/2025 Gay Enciso Pre-diabetes R73.03 and Encounter for long-term current use of medication Z79.899 [facility] [address] [place] [address] 02/26/2025 Gay Enciso [facility] [address] [facility] [place] [address] 02/27/2025 Gay Enciso Elevated lactic acid level R79.89 [facility] [address] [facility] [place] [address] 02/27/2025 Gay Enciso Elevated lactic acid level R79.89 [facility] [address] [facility] [place] [address] 03/01/2025 Gay Enciso [facility] [address] [place] [address] 03/05/2025 Gay Enciso [facility] [address] [facility] [place] [address] 03/05/2025 Gay Enciso [facility] [address] [facility] [place] [address] 03/06/2025 Gay Enciso [facility] [address] [facility] [place] [address] 03/08/2025 Gay Enciso [facility] [address] [facility] [place] [address] 03/08/2025 Gay Enciso [facility] [address] [place] [address] 03/09/2025 Gay Enciso [facility] [facility] [address] [place] [address] 10/23/2024 Gay Enciso Diarrhea R19.7 ; WOODROW D (gastroesophageal reflux disease) K21.9 and Generalized enlarged lymph nodes R59.1 [facility] [address] [place] [address] 01/08/2025 Gay Enciso Rib pain on right si de R07.81 ; Jaw pain R68.84 and Generalized enlarged lymph nodes R59.[address] [address] 02/26/2025 Gay Enciso Elevated lactic acid level R79.89 and Type 2 diabetes mellitus E11.[address] [address] 03/05/2025 Gay Enciso Pilonidal cyst with abscess L05.[address] [address] 04/05/2024 Gay Enciso Oral candidiasis B37 .[address] [address] 04/14/2024 Gay Enciso Lupus M32.[address] [address] 07/04/2024 Gay Enciso Pre-diabetes R73.03 and Thrush [...] - D72.829) 10/23/2024 Diarrhea (ICD-10 - R19.7) 03/05/2025 Pilonidal cyst with abscess (ICD-10 - L05.01) fu Kulwant, if needs ID referral Jennifer Shultz on Keflex currently continue monitor 04/28/2024 Hypertension (ICD-10 - I10) 04/28/2024 Anxiety (ICD-10 - F41.9) 05/01/2024 Hypertension (ICD-10 - I10) 02/26/2025 Elevated lactic acid level (ICD-10 - R79.89) 02/26/2025 Type 2 diabetes mellitus (ICD-10 - E11.9) 03/08/2025 Elevated lactic acid level (ICD-10 - [...] trulicity 03/08/2025 Pilonidal abscess (ICD-10 - L05.01) 06/16/2024 Hypertension (ICD-10 - I10) 08/16/2024 Pre-diabetes [...] current use of medication (ICD-10 - Z79.899) 02/27/2025 Elevated lactic acid level (ICD-10 - R79.89) 02/27/2025 Elevated lactic acid level (ICD-10 - R79.89) 11/06/2024 Anxiety (ICD-10 - F41.9) 01/08/2025 Generalized enlarged lymph nodes (ICD-10 - R59.1) 10/06/2024 Diarrhea (ICD-10 - R19.7) 03/08/2025 Type 2 diabetes mellitus (ICD-10 - E11.9) restart trulicity 05/01/2024 Oral candidiasis (ICD-10 - B37.0) 10/23/2024 GERD (gastroesophagea l reflux disease) (ICD-10 - K21.9) 10/23/2024 Generalized enlarged lymph nodes (ICD-10 - R59.1) Plan Of Treatment Pending Test Test Name Order Date CMP (COMPLETE METABOLIC PANEL) CMP (COMPLETE METABOLIC PANEL) 4 UA (URINALYSIS, COMPLETE) 03/08/2025 CULTURE, STOOL 10/23/2024 HEMOGLOBIN A1C (GLYCO) 07/27/2024 [...] PCR 02/26/2025 C DIFFICILE BY PCR 03/06/2024 Urine Culture 03/08/2025 PFT Complete 08/17/2023 Insulin Level 07/27/2024 COMPREHENSIVE METABOLIC PANEL 02/26/2025 C DIFF TOX PCR STOOL 10/23/2024 C DIFF TOX PCR STOOL 10/06/2024 C DIFF TOX PCR STOOL 07/20/2023 C DIFF TOX PCR STOOL 09/08/2023 C DIFF TOX PCR STOOL 12/20/2023 CMP - Comprehensive Metabolic Panel 07/2024 Comp. Metabolic Panel (14) 02/27/2025 C. DIFF PCR 08/10/2023 C. DIFF PCR 07/27/2023 CULTURE URINE 06/25/2023 LACTATE or LACTIC ACID 03/09/2025 LIPID PROFILE 02/10/2023 STOOL CULTURE 07/27/2023 STOOL CULTURE 10/06/2024 STOOL CULTURE 09/08/2023 UA RANDOM W or MICROSCOPIC 03/09/2025 VITAMIN B12 07/27/[address] WO CON 08/20/[address] HEAD_NECK 07/27/2023 US KALYN DOP LEG MARK 02/10/2024 XR CHEST 2 V 08/17/2023 THYROID PANEL (T4/TSH/FREE T3) CT angio chest 12/08/2023 XR thoracic spine 3V 03/09/2025 CMP (COMP MET ONEIL) w/eGFR CKD-EPI 2024 Urine Culture - [facility] 03/09/2025 Insurance Providers Payer Name Payer Address Payer Phone Subscriber Number Group Number Insured Name Patient Relationship to Insured Coverage Start Date Coverage End Date [employer] [place] [employer] [address] [place] [address] [id number] Jones Paniagua Self - patient is the insured Medical (General) History Medical History History ICD Code Chronic fatigue 780.79 Anxiety F41.9 Cervical lymphadenopathy R59.0 GERD (gastroesophageal reflux disease) K 21.9 Hypercholesterolemia E78.00 Hyperlipidemia E78.5 Lupus M32.9 Tachycardia R00.0 Prediabetes R73.09 Hypertension I10 Surgical History Surgery Date(Month/Year) Pynonidal Cyst 02/2025 lymph node biopsy 2020
--- OUTSIDE RECORDS SUMMARY | 2025-03-09 22:36 | XMS_ITS | Encounter Summary ---
Author Organization [facility] Address [address] [place] [address] Care Team Providers Care Grease Buffer Name Role Phone Manuel Klein MD Unavailable [phone] Manuel Klein MD Primary Care Provider [phone] Manuel Klein MD Unavailable [phone] Source Comments In the event this information is protected by the Federal Confidentiality of Alcohol and Drug AbusePatient Records regulations: The Federal rules restrict any use of the information to criminally investigate or prosecute any alcohol or drug abuse patient.[facility] Encounter Details Date Type Department Care Team (Late st Contact Info) Description 05/11/2023 Get Medical Advice Rheumatology [address] [place], [place] [id number] Sandra Park MD [address] [place] [address] Flair Social History Tobacco Use [...] risk 4 09/24/2022 Data from: https://www.neighborhoodatlas.medicine.[facility]/. Last address used for calculation [address] 09/24/2022 Comments No Sex and Gender [...] Department VIDEO SPEC EST 08/12/2023 9:00 AM [facility] Last Ophthalmology Check for Plaquenil (Hydroxychloroquine) [...] Description 03/21/2025 9:00 AM EDT Office Visit [facility] [address] [address] 4 week follow up IVIG - pt to see MASON for this appt per Fara 03/21/2025 9:20 AM EDT Visit (SP) Office Hematology/Oncology [address] [place] [address] Jose Cho MD [address] [place] [address] 4 week follow up IVIG - pt to see MASON for this appt per Fara 03/21/2025 9:40 AM EDT Infusion Center Hematology/Oncology [address] [place] [address] Gabbi, Chair [address] [place] [address] 4 week follow up IVIG - pt to see MASON for this appt per Fara 04/05/2025 2:00 PM EST Infusion Center Hematology/Oncology [address] [place] [address] BENLYSTA - 05/03/2025 2:00 PM EST Infusion Center Hematology/Oncology [address] [place] [address] BENLYSTA - documented as of this encounter Visit Diagnoses Diagnosis Other systemic lupus erythematosus with other organ involvement (HCC) documented in this encounter Care Teams Grease Buffer Relationship Specialty Start Date End Date Manuel Klein MD PCP - General Family Medicine 02/27/22 Manuel Klein MD Referring Family Medicine 02/12/22 Manuel Klein MD [address] [place] [id number] Referring Family Medicine 07/06/24 documented as of this encounter
--- OUTSIDE RECORDS SUMMARY | 2025-03-09 22:36 | XMS_ITS | Encounter Summary ---
Author Organization [facility] Address [address] [place] [address] Care Team Providers Care Russian Language Instructor Name Role Phone Aime Davidson MD, Lui Nunez Primary Care Provid er Gay De La Torre(Historical) DIESEL ENGINE MECHANIC.READING INTERVENTIONIST Primary Care Provider Unavailable Manuel Klein MD Unavailable [phone] Manuel Klein MD Primary Care Provider [phone] Manuel Klein MD Unavailable [phone] Source Comments In the event this information is protected by the Federal Confidentiality of Alcohol and Drug AbusePatient Records regulations: The Federal rules restrict any use of the information to criminally investigate or prosecute any alcohol or drug abuse patient.[facility] Encounter Details Date Type Department Care Team (Late st Contact Info) Description 12/31/2014 Patient Msg Medical Records [address] [place] [address] Provider, Ccf RE:Infection Social History Tobacco Use [...] Visit [facility] [address] [place] [address] 4 week follow up IVIG - pt to see MASON for this appt per Fara 03/21/2025 9:20 AM EDT Visit (SP) Office Hematology/Oncology [address] [place] [address] Jose Cho MD [address] [place] [address] 4 week follow up IVIG - pt to see MASON for this appt per Fara 03/21/2025 9:40 AM EDT [facility] Center Hematology/Oncology [address] [place] [address] Gabbi, Chair [address] [place] [address] 4 week follow up IVIG - pt to see MASON for this appt per Fara 04/05/2025 2:00 PM [facility] Infusion Center Hematology/Oncology [address] [place] [address] BENLYSTA - 05/03/2025 2:00 PM [facility] Infusion Center Hematology/Oncology [address] [place] [address] BENLYSTA - documented as of this encounter Visit Diagnoses Not on filedocumented in this encounter Care Teams Russian Language Instructor Relationship Specialty Start Date End Date Lui Salomon Jr., MD PCP - General Internal Medicine 05/31/14 07/08/20 Gay De La Torre(Historical), DIESEL ENGINE MECHANIC.READING INTERVENTIONIST PCP - General Family Medicine 10/24/21 02/26/22 Manuel Klein MD PCP - General Family Medicine 02/27/22 Manuel Klein MD Referring Family Medicine 02/12/22 Manuel Klein MD [address] [place] [address] Referring Family Medicine 07/06/24 documented as of this encounter
--- OUTSIDE RECORDS SUMMARY | 2025-03-09 22:36 | XMS_ITS | Encounter Summary ---
Author Organization [facility] Address [address] [facility] [place] [address] Care Team Providers Care Optical Goods Drill Operator Name Role Phone House, Charles Culver MD Primary Care Provider Gay De La Torre MD Unavailable [phone] Encounter Details Date Type Department Care Team (Late Contact Info) Description 04/07/2024 Clinisync Result Encounter [facility] External Department Unsolicited Luan Valdivia, DO [address] [facility] [place] [address] Social History Tobacco Use Types [...] 03/19/2025 10:20 AM EDT Office Visit [facility] [address] [place] [address] Mary Grace Mejias MD [address] [facility] [address] [place] [address] 03/23/2025 11:30 AM EDT Office Visit [facility] [address] [facility] [address] [place] [id number] Terence Blum MD [address] [facility] [address] [place] [address] 07/25/2025 11:00 AM EST Office Visit [facility] [address] [place] [address] Cynthia English MD [address] [place] [address] documented as of this encounter Procedures Procedure Name Priority Date/Time Associated Diagnosis Comments MM TOMOSYNTHESIS DIAGNOSTIC BI 04/07/2024 8:40 AM EST documented in this encounter Results * MM TOMOSYNTHESIS DIAGNOSTIC BI (04/07/2024 8:40 AM EST) Anatomical Region Laterality Modality Other 04/07/2024 8:40 AM EST Narrative 04/07/2024 8:41 AM EST [address] [address] Mammography Report Signed Patient: JONES PANIAGUA MR#: [id number] : 1980 Acct:[id number] Age/Sex: 43 / F ADM Date: 04/06/24 Loc: US Attending Dr: Luan Valdivia D.O. Ordering Physician: Luan Valdivia D.O. Results: Date of Service: 04/06/24 Follow Up: Procedure(s): MM tomosynthesis diagnostic BI Accession Number(s): [id number] cc: GAY DE LA TORRE ; Luan Valdivia D.O. Patient Name: JONES PANIAGUA MR#: [id number] : 1980 Exam Date: 04/06/2024 Ordering Doctor: [...] [facility] BREAST COMPOSITION: There are scattered areas [...] Signed By: 04/07/24 0841 DD/ 0840 TD/TT: Tile Presser: Procedure Note Radiology, Radiologist, - 04/07/2024 [place] [address] Mammography Report Signed Patient: JONES PANIAGUA BMR#: [id number] : 1980Acct:[id number] Age/Sex: 43 / FADM Date: 04/06/24 Loc: US Attending Dr: Luan Valdivia D.O. Ordering Physician: Luan Valdivia D.O.Results: Date of Service: 04/06/24Follow Up: Procedure(s): MM tomosynthesis diagnostic BI Accession Number(s): [id number] cc: GAY DE LA TORRE ; Luan Valdivia D.O. Patient Name: JONES PANIAGUA MR#: [id number] : 1980 Exam Date: 04/06/2024 Ordering Doctor: DR Luan Valdivia . RADIOLOGY REPORT PROCEDURE: MM TOMOSYNTHESIS DIAGNOSTIC BI, 04/06/2024, 15:20 US BREAST BI LIMITED, 04/06/2024, 15:37 COMPARISON: MM TOMOSYNTHESIS SCREENING BI, 09/23/2023. MG MAMM [id number] MARK CAD, 09/01/2022. MG MAMM SCREEN 3D [...] [facility] BREAST COMPOSITION: There are scattered areas [...] Vito Yusuf M.D. Signed By:04/07/2441 DD/ TD/TT: Tile Presser: us Luan Valdivia DO [facility] Final Result documented in this encounter Visit Diagnoses Not on filedocumented in this encounter Care Teams Optical Goods Drill Operator Relationship Specialty Start Date End Date Charles Nicole MD PCP - General Family Medicine 02/09/24 07/17/24 Gay De La Torre MD [address] [place], [place] [phone] Referring Physician Family Medicine 07/18/24 documented as of this encounter
--- OUTSIDE RECORDS SUMMARY | 2025-03-09 22:36 | XMS_ITS | Encounter Summary ---
Author Organization [facility] Address [address] [place] [address] Care Team Providers Care Flume Worker Name Role Phone Manuel Klein MD Unavailable [phone] Manuel Klein MD Primary Care Provider [phone] Manuel Klein MD Unavailable [phone] Source Comments In the event this information is protected by the Federal Confidentiality of Alcohol and Drug AbusePatient Records regulations: The Federal rules restrict any use of the information to criminally investigate or prosecute any alcohol or drug abuse patient.[facility] Reason for Visit * Reason Comments Refill Request Encounter Details Date Type Department Care Team (Late st Contact Info) Description 04/26/2024 Refill Rheumatology [address] [place], [place] [phone] Sandra Park MD [address] [place] [address] Refill Request Social History Tobacco [...] is lower risk 4 09/24/2022 Data from: https://www.neighborhoodatlas.medicine.[facility]/. Last address used for calculation [address] 09/24/2022 Comments No Sex and Gender [...] Visit [facility] [address] [place] [address] [place] [address] 4 week follow up IVIG - pt to see MASON for this appt per Fara 03/21/2025 9:20 AM EDT Visit (SP) Office Hematology/Oncology [address] [facility] [place] [address] Jose Cho MD [address] [facility] [place] [address] 4 week follow up IVIG - pt to see MASON for this appt per Fara 03/21/2025 9:40 AM EDT Infusion Center Hematology/Oncology [address] [facility] [place] [address] Gabbi, Chair 4 [address] [facility] [place] [address] 4 week follow up IVIG - pt to see MASON for this appt per Fara 04/05/2025 2:00 PM EST Infusion Center Hematology/Oncology [address] [place] [address] [place] [address] BENLYSTA - 05/03/2025 2:00 PM [facility] Infusion Center Hematology/Oncology [address] [place] [address] [place] [address] BENLYSTA - documented as of this encounter Visit Diagnoses Diagnosis Other systemic lupus erythematosus with other organ involvement (HCC) documented in this encounter Care Teams Flume Worker Relationship Specialty Start Date End Date Manuel Klein MD PCP - General Family Medicine 02/27/22 Manuel Klein MD Referring Family Medicine 02/12/22 Manuel Klein MD [address] [facility] [place] [address] Referring Family Medicine 07/06/24 documented as of this encounter
--- OUTSIDE RECORDS SUMMARY | 2025-03-09 22:36 | XMS_ITS | Encounter Summary ---
Author Organization [facility] Address [address] [place] [address] Care Team Providers Care Fitness And Wellness Instructor Name Role Phone Aime Davidson MD, Lui Nunez Primary Care Provid er Gay De La Torre(Historical) HIGH SCHOOL HOME ECONOMICS TEACHER.PRIMING MIXTURE CARRIER Primary Care Provider Unavailable Manuel Klein MD Unavailable [phone] Manuel Klein MD Primary Care Provider [phone] Manuel Klein MD Unavailable [phone] Source Comments In the event this information is protected by the Federal Confidentiality of Alcohol and Drug AbusePatient Records regulations: The Federal rules restrict any use of the information to criminally investigate or prosecute any alcohol or drug abuse patient.[facility] Encounter Details Date Type Department Care Team (Late st Contact Info) Description 12/31/2014 Get Medical Advice Internal Medicine [facility] [place] [address] Lui Salomon Jr., MD [address] [address] Medication Question (Not Renewal) Social [...] Office Visit [facility] [address] [place] [address] [place] [address] 4 week follow up IVIG - pt to see MASON for this appt per Fara 03/21/2025 9:20 AM EDT Visit (SP) Office Hematology/Oncology [address] [facility] [place] [address] Jose Cho MD [address] [facility] [place] [address] 4 week follow up IVIG - pt to see MASON for this appt per [facility] 03/21/2025 9:40 AM EDT Infusion Center Hematology/Oncology [address] [facility] [place] [address] Gabbi, Chair [address] [facility] [place] [address] 4 week follow up IVIG - pt to see MASON for this appt per [facility] 04/05/2025 2:00 PM EST Infusion Center Hematology/Oncology [address] [place] [address] [place] [address] BENLYSTA - 05/03/2025 2:00 PM [facility] Infusion Center Hematology/Oncology [address] [place] [address] [place] [address] BENLYSTA - documented as of this encounter Visit Diagnoses Not on filedocumented in this encounter Care Teams Fitness And Wellness Instructor Relationship Specialty Start Date End Date Lui Salomon Jr., MD PCP - General Internal Medicine 05/31/14 07/08/20 Gay De La Torre(Historical), HIGH SCHOOL HOME ECONOMICS TEACHER.PRIMING MIXTURE CARRIER PCP - General Family Medicine 10/24/21 02/26/22 Manuel Klein MD PCP - General Family Medicine 02/27/22 Manuel Klein MD Referring Family Medicine 02/12/22 Manuel Klein MD [address] [place] [address] Referring Family Medicine 07/06/24 documented as of this encounter
--- OUTSIDE RECORDS SUMMARY | 2025-03-09 22:37 | XMS_ITS | CCD ---
Author Organization [facility] Care Team Providers Care Through Operator Name Role Phone VICTOR MANUEL GUZMAN Referring Unavailable Unavailable Primary Care Provider UnavailJONAS Stuart Referring Unavailable Britt SALES APPRENTICE.TRUE, Gay Primary Care Provider Mirela Kelsey Unavailable Britt SALES APPRENTICE.CORK MIXER, Gay Primary Care Provider [phone] Manuel Ferris MD Unavailable Manuel Ferris MD [...] Provider Manuel Ferris MD Primary Care Provider [phone] MD Adolfo Kang Attending Provider CARISSA Enciso-Ananya Gay Natalie Primary Care Provider [phone] Charles Nicole MD Primary Care Provider CALOS MENDOZA Attending Unavailable Unavailable Primary Care Provider UnavailManuel Calixto MD Unavailable Britt TOOL AND DIE SUPERVISOR-C, Gay Natalie Primary Care Provider [phone] Adolfo Kang MD Attending Provider [phone] ALHAJI HEAD Attending Unavailable MANUEL FERRIS [...] BRITT, GAY S Primary Care Unavailable Britt TOOL AND DIE SUPERVISOR-C, Gay Natalie Primary Care Provider Jorge Luis LEE, Adolfo Jane Attending Provider Britt TOOL AND DIE SUPERVISOR-C, Gay Natalie Primary Care Provider Jorge Luis LEE, Adolfo Jane Attending Provider [phone] Margie Arnett NP Attending Provider [phone] Britt TOOL AND DIE SUPERVISOR-C, Gay Natalie Primary Care Provider [phone] Jorge Luis LEE, Adolfo Jane Attending Provider Bandar Portillo APRN Attending Provider Britt TOOL AND DIE SUPERVISOR-C, Gay Natalie Primary Care Provider [phone] Adolfo Kang MD Attending Provider [phone] Janes Barfield MD Attending Provider [phone] Adolfo Kang MD Other Provider ABHYANKAR, VERA [...] Attending Provider Mathew Ji MD Attending Provider BERNABE ENGLISH Attending Unavailable GORDO BARFIELD Attending Unavailable MELISSA HUDDLESTON Attending Unavailable OLY PLASCENCIA Referring Unavailable BERNABE ENGLISH Attending Unavailable TERENCE DAY Attending Unavailable BERNABE ENGLISH Referring Unavailable LUAN VALDIVIA Attending Unavailable OLY PLASCENCIA Attending Unavailable MARKY MIKE Attending Unavailable GORDO BARFIELD Attending Unavailable GAY ENCISO Referring Unavailable OLY PLASCENCIA Attending Unavailable Britt TOOL AND DIE SUPERVISOR-C, Gay Natalie Primary Care Provider Margie Arnett NP Attending Provider [phone] Terence Blum MD Attending Provider [phone] Jose Perez DO Attending Provider [phone] Janes Barfield Admitting Unavailab Janes Quispe Attending [...] sources) Trimethoprim Drug Allergy Other: See Comments [facility] Doxycycline (3 sources) Doxycycline Drug Allergy Other: See Comments [facility] Latex (3 sources) Latex Substance Allergy Rash [facility] Lincosamides (antibiotic) (3 sources) Clindamycin Drug Allergy Unknown [facility] Opioid Agonists (3 sources) Codeine Drug Allergy Other: See Comments [facility] Sulfamethoxazole / Trimethoprim (4 sources) Sulfamethoxazole / Trimethoprim Drug Allergy Swelling [facility] Sulfonamides (antibiotic) (3 sources) Sulfamethoxazole Drug Allergy Other: See Comments [facility] Work Phone: (20 sources) Codeine; Translations: [CODEINE] Drug Allergy Other: See Comments [facility] (20 sources) Latex; Translations: [LATEX] Drug Allergy Rash [facility] (20 sources) Sulfamethoxazole; Translations: [SULFAMETHOXAZOLE] Drug Allergy GI Upset, Other: See Comments [facility] (20 sources) Clindamycin; Translations: [CLINDAMYCIN] Drug Allergy Unknown [facility] (4 sources) Sulfamethoxazole / Trimethoprim Drug Allergy lymph swelling [facility] Other (20 sources) Doxycycline; Translations: [DOXYCYCLINE] Drug Allergy Other: See Comments, Other, Unknown, Other (See Comments) [facility] (20 sources) Sulfamethoxazole / Trimethoprim; Translations: [SULFAMETHOXAZOLE-T RIMETHOPRIM] Drug Allergy Swelling, Other, GI Disturbance, Other (See Comments) [facility] (20 sources) Trimethoprim; Translations: [TRIMETHOPRIM] Drug Allergy Other: See Comments [facility] (1 source) Latex Drug allergy (disorder) [facility] (1 source) Sulfamethoxazole / Trimethoprim Drug Allergy [facility] (20 sources) Sulfamethoxazole Allergy to substance [facility] [facility] (20 sources) Latex Propensity to adverse reactions Rash [facility] (1 source) Omeprazole; Translations: [OMEPRAZOLE] Drug Allergy [facility] (1 source) pantoprazole; Translations: [PANTOPRAZOLE] Drug Allergy [facility] (1 source) Clindamycin Drug Allergy [...] times a day as needed. 02/01/2024 Active zufxmpxhtmQGLIH-tmqxhh-cpmeg belia (BMX 1:1:1) 1:1:1 liqd (20 sources) Start: 07-12-2024 take 5 mL by mouth every six hours as needed pytsbackojCHBGW-rvfyuf-lozmsuveu (BMX 1:1:1) 1:1:1 liqd Take 5 mL [...] Obesity, Class III, BMI 40-49.9 (morbid obesity) ([facility]) , Pre-diabetes Inject 0.75 mg subcutaneously one [...] (CYMBALTA) 20 mg capsule Indications: Depression, recurrent ([facility]) , Chronic pain syndrome Take 1 capsule by mouth once daily. 30 capsule 2 10/29/2022 04/26/2023 Discontinued (Course of therapy completed) Start: 03-09-2022 End: 06-07-2022 take 1 capsule by mouth once daily DULoxetine (CYMBALTA) 20 mg capsule Take 1 capsule by mouth once daily. 30 capsule 2 03/09/2022 Active Comment on above: Take 1 capsule by [facility] once daily. ergocalciferol 1.25 mg oral capsule [...] D2) 1,250 mcg (50,000 unit) capsule Discontinued 30695 UNIT PO every week October 20, 2023 [...] 0 03/06/2021 Active take 1 capsule by [facility] every week ergocalciferol (Vitamin D2) 1.25 MG (58984 UT) capsule Take 50,000 Units by mouth [...] Start: 10-20-2023 take 4 tablets by mo [facility] once daily Start: 10-20-2023 take 200 [...] Active Start: 05-25-2022 take 1 tablet by [facility] twice daily metoprolol tartrate, short [...] 0.4 mg unde r the tongue. nystatin 313836 unt/ml oral suspension (20 sources) Polyene Antifungal [...] swallow Start: 07-25-2024 End: 08-08-2024 nystatin (Mycostatin) 249512 UNIT/ML suspension Indications: Rash and other nonspecific [...] Discontinued Start: 10-20-2023 take 2 tablets by [facility] once daily Start: 05-12-2023 End: 10-07-2024 take [...] g 11 07/25/2024 Active Start: 08-16-2023 tacrolimus (OR OTOPIC) 0.1 [...] other organ involvement (HCC) , 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 TAKE 3 TABLETS BY MOUTH DAILY WITH FOOD. HOLD IF ON ANTIBIOTICS OR ILL. 90 tablet 3 02/16/2023 Active Start: 08-19-2022 End: 11-24-2022 take 2 tablets by mouth once daily at mealtime azaTHIOprine (IMURAN) 50 mg tablet Indications: Other systemic lupus erythematosus with other organ involvement (HCC) , 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 Take 2tab daily [...] antibiotics or ill. Take 3tab daily by [facility] with food. Hold if on antibiotics or ill. TAKE 3 TABLETS BY [facility] DAILY WITH FOOD. HOLD IF ON ANTIBIOTICS [...] on above: Take 1 capsule by mo [facility] twice daily. pravastatin sodium 20 mg [...] 1:08pm Start: 06-24-2023 [facility] pravastatin (Pravachol) 20 MG [...] Comment on above: Take 1 tablet by [facility] once daily. rivaroxaban 15 mg [...] sources) Drug therapy status; Translations: [Encounter for snf 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] Episodic Other aftercare (1 source) Polypharmacy ; Translations: [Other rat exterminator (current) drug therapy] Episodic Other aftercare (1 source) Long-term current use of drug therapy; Translations: [Encounter for snf 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] 11-11-2023 Episodic Other [...] (20 sources) Drug therapy finding; Translations: [Other snf (current) drug therapy] Onset: 03-05-2021 Episodic Other aftercare (20 sources) H/O: high risk medication; Translations: [Other rat exterminator (current) drug therapy] Onset: 06-15-2022 06-15-2022 Episodic Other aftercare (1 source) Other rat exterminator (current) drug therapy; Translations: [OTH SHELLFISH PROCESSING MACHINE TENDER 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 THERAPY] Onset: 03-23-2022 Episodic Other [...] Cx Nom (U) ORGANISM: Christine albicans (O:CANALB) [place] Count >100,000 PERFORMED BY: [facility] [address] [place] [address] PATHOLOGIST BIOFUELS PRODUCT DEVELOPMENT MANAGER TIM FOOTE M.D. Normal [facility] Comment on above: Performed By: #### C UU #### [address] Aerobic Cultureon 03-02-2025 Aerobic Culture Comment pilonidal abscess culture ORGANISM: Serratia marcescens (O:SERMAR) Quantity of Growth Light Growth Comment pilonidal abscess culture ORGANISM: Anaerobe isolated (O:CHRISTIAN) Comments . Quantity of Growth Light Growth Send Test to Ref. Lab Sent to [facility] for CHRISTIAN ID Please contact Microbiology within [...] RESISTANT TO ALL B-LACTAM DRUGS. PERFORMED BY: [facility] [address] [facility] [place] [address] PATHOLOGIST BIOFUELS PRODUCT DEVELOPMENT MANAGER TIM FOOTE M.D. Normal [facility] Comment on above: Performed By: #### A ERC #### [facility] [address] Aerobic cultureOrdered By: Al Blum on 03-02-2025 Bacteria identified Aer cx Nom (Unsp spec) Serratia marcescens Abnormal [facility] Gram stain microscopyOrdered By: Terence Blum on 03-02-2025 Microscopic observation Gram stain Nom (Unsp spec) [facility] 03-02-2025 L - -------- Specimen: [id number] Received: 03/05/25 Status: BAIRON Marvin Num: [id number] Spec Type: Surgical Subm Dr: Terence Blum MD Tissues: A Pilonidal Cyst (PRODUCT OF DEBRIDEMENT) Procedures: GEE/Twan, Gross/Micro L3 -------- Age/ Patient Sex Location Account Attending Physician -------- Ariadna Haley 44/F [place] [id number] Terence Blum MD -------- SPEC NUM: [id number] RECD: 03/05/25 STATUS: BAIRON MARVIN NUM: [id number] EDITA: 03/02/[address]: Terence Blum MD ENTERED: 03/05/25 [facility] DR: DANIELLA TYPE: Surgical DEPT: S ENTERED BY: [id number] RECV BY: [id number] ORDERED: HE/2, Gross/Micro L3 ORDERED: HE/2, Gross/Micro [...] each specimen submitted in A2. (2, ns, [id number]) CPT Codes 98269 -------- -------- Specimen: [id number] Received: 03/05/25 Status: BAIRON Marvin Num: [id number] Spec Type: Surgical Subm Dr: Terence Blum MD Tissues: A Pilonidal Cyst (PRODUCT OF DEBRIDEMENT) Procedures: HE/2, Gross/Micro L3 -------- Patient: Ariadna Haley [id number] (Continued) -------- Signed (signature on file) Merry Grajeda MD 03/06/25 1111 Normal [facility] Urine Cultureon 02-26-2025 Bacteria identified Cx Nom (U) 20,000 colonies/ml mixed bacterial skin contaminants including mixed gram negative bacilli - 2 Days PERFORMED BY: [facility] [place] [address] PATHOLOGIST BIOFUELS PRODUCT DEVELOPMENT MANAGER TIM FOOTE M.D. Normal [facility] Comment on above: Performed By: #### C UU #### [facility] [address] Urine cultureOrdered By: Abilio Ji on 02-26-2025 Bacteria identified Cx Nom (U) bacilli - 2 Days [facility] CBC W Auto Differential pane l (Bld)on 02-21-2025 Basophils (Bld) [#/Vol] 0.09 10*3/uL Normal <0.11 [facility] Comment on above: Order Comment: Speci men Type: BLOOD SPECIMENOrdering Facility: [facility] Address: [address] [place] [address] Performed By: #### 5 7021-8 ####[facility] LABCLIA [id number] [place] [address] Basophils/100 WBC (Bld) 0.7 % Normal [facility] Comment on above: Order Comment: Speci men Type: BLOOD SPECIMENOrdering Facility: [facility] Address: [address] [place] [address] Performed By: #### 5 7021-8 ####[facility] LABCLIA [id number] [place] [address] Differential cell count method Nom (Bld) Auto Normal [facility] Comment on above: Order Comment: Speci men Type: BLOOD SPECIMENOrdering Facility: [facility] Address: [address] [place] [address] Performed By: #### 5 7021-8 ####[facility] LABCLIA [id number] [place] [address] Eosinophils (Bld) [#/Vol] 0.11 10*3/uL Normal <0.46 [facility] Comment on above: Order Comment: Speci men Type: BLOOD SPECIMENOrdering Facility: [facility] Address: [address] [place] [address] Performed By: #### 5 7021-8 ####[facility] LABCLIA [id number] [place] [address] Eosinophils/100 WBC (Bld) 0.8 % Normal [facility] Comment on above: Order Comment: Speci men Type: BLOOD SPECIMENOrdering Facility: [facility] Address: [address] [place] [address] Performed By: #### 5 7021-8 ####[facility] LABCLIA [id number] [place] [address] Erythrocyte distribution width (RBC) [Ratio] 14.3 % Normal 11.5-15.0 [facility] Comment on above: Order Comment: Speci men Type: BLOOD SPECIMENOrdering Facility: [facility] Address: [address] [place] [address] Performed By: #### 5 7021-8 ####[facility] LABCLIA [id number] [place] [address] Hematocrit (Bld) [Volume fraction] 46.0 % Normal 36.0-46.0 [facility] Comment on above: Order Comment: Speci men Type: BLOOD SPECIMENOrdering Facility: [facility] Address: [address] [place] [address] Performed By: #### 5 7021-8 ####[facility] LABIA [id number] [place] [address] Hemoglobin (Bld) [Mass/Vol] 15.1 g/dL Normal 11.5-15.5 [facility] Comment on above: Order Comment: Speci men Type: BLOOD SPECIMENOrdering Facility: [facility] Address: [address] [place] [address] Performed By: #### 5 7021-8 ####[facility] LABCLIA [id number] [place] [address] Immature granulocytes (Bld) [#/Vol] 0.21 10*3/uL High <0.10 [facility] Comment on above: Order Comment: Speci men Type: BLOOD SPECIMENOrdering Facility: [facility] Address: [address] [place] [address] Performed By: #### 5 7021-8 ####[facility] LABCLIA [id number] [place] [address] Immature granulocytes/100 WBC (Bld) 1.6 % Normal [facility] Comment on above: Order Comment: Speci men Type: BLOOD SPECIMENOrdering Facility: [facility] Address: [address] [place] [address] Performed By: #### 5 7021-8 ####[facility] LABCLIA [id number] [place] [address] Lymphocytes (Bld) [#/Vol] 1.89 10*3/uL Normal 1.00-4.00 [facility] Comment on above: Order Comment: Speci men Type: BLOOD SPECIMENOrdering Facility: [facility] Address: [address] [place] [address] Performed By: #### 5 7021-8 ####[facility] LABCLIA [id number] [place] [address] Lymphocytes/100 WBC (Bld) 14.4 % Normal [facility] Comment on above: Order Comment: Speci men Type: BLOOD SPECIMENOrdering Facility: [facility] Address: [address] [place] [address] Performed By: #### 5 7021-8 ####[facility] LABCLIA [id number] [place] [address] MCH (RBC) [Entitic mass] 31.7 pg Normal 26.0-34.0 [facility] Comment on above: Order Comment: Speci men Type: BLOOD SPECIMENOrdering Facility: [facility] Address: [address] [place] [address] Performed By: #### 5 7021-8 ####[facility] LABIA [id number] [place] [address] MCHC (RBC) [Mass/Vol] 32.8 g/dL Normal 30.5-36.0 [facility] Comment on above: Order Comment: Speci men Type: BLOOD SPECIMENOrdering Facility: [facility] Address: [address] [place] [address] Performed By: #### 5 7021-8 ####[facility] LABCLIA [id number] [place] [address] MCV (RBC) [Entitic vol] 96.4 fL Normal 80.0-100.0 [facility] Comment on above: Order Comment: Speci men Type: BLOOD SPECIMENOrdering Facility: [facility] Address: [address] [place] [address] Performed By: #### 5 7021-8 ####[facility] LABCLIA [id number] [place] [address] Monocytes (Bld) [#/Vol] 0.92 10*3/uL High <0.87 [facility] Comment on above: Order Comment: Speci men Type: BLOOD SPECIMENOrdering Facility: [facility] Address: [address] [place] [address] Performed By: #### 5 7021-8 ####[facility] LABIA [id number] [place] [address] Monocytes/100 WBC (Bld) 7.0 % Normal [facility] Comment on above: Order Comment: Speci men Type: BLOOD SPECIMENOrdering Facility: [facility] Address: [address] [place] [address] Performed By: #### 5 7021-8 ####[facility] LABCLIA [id number] [place] [address] Neutrophils (Bld) [#/Vol] 9.94 10*3/uL High 1.45-7.50 [facility] Comment on above: Order Comment: Speci men Type: BLOOD SPECIMENOrdering Facility: [facility] Address: [address] [place] [address] Performed By: #### 5 7021-8 ####[facility] LABCLIA [id number] [place] [address] Neutrophils/100 WBC (Bld) 75.5 % Normal [facility] Comment on above: Order Comment: Speci men Type: BLOOD SPECIMENOrdering Facility: [facility] Address: [address] [place] [address] Performed By: #### 5 7021-8 ####[facility] LABCLIA [id number] [place] [address] Nucleated RBC (Bld) [#/Vol] 10*3/uL Normal <0.01 [facility] Comment on above: Order Comment: Speci men Type: BLOOD SPECIMENOrdering Facility: [facility] Address: [address] [place] [address] Performed By: #### 5 7021-8 ####[facility] LABCLIA [id number] [place] [address] Nucleated RBC/100 WBC (Bld) [Ratio] 0.0 /100 WBC Normal [facility] Comment on above: Order Comment: Speci men Type: BLOOD SPECIMENOrdering Facility: [facility] Address: [address] [place] [address] Performed By: #### 5 7021-8 ####[facility] LABCLIA [id number] [place] [address] Platelet mean volume (Bld) [Entitic vol] 9.9 fL Normal 9.0-12.7 [facility] Comment on above: Order Comment: Speci men Type: BLOOD SPECIMENOrdering Facility: [facility] Address: [address] [place] [address] Performed By: #### 5 7021-8 ####[facility] LABCLIA [id number] [place] [address] Platelets (Bld) [#/Vol] 305 10*3/uL Normal 150-400 [facility] Comment on above: Order Comment: Speci men Type: BLOOD SPECIMENOrdering Facility: [facility] Address: [address] [place] [address] Performed By: #### 5 7021-8 ####[facility] LABCLIA [id number] [place] [address] RBC (Bld) [#/Vol] 4.77 10*6/uL Normal 3.90-5.20 [facility] Comment on above: Order Comment: Speci men Type: BLOOD SPECIMENOrdering Facility: [facility] Address: [address] [place] [address] Performed By: #### 5 7021-8 ####[facility] LABCLIA [id number] [place] [address] WBC (Bld) [#/Vol] 13.16 10*3/uL High 3.70-11.00 [facility] Comment on above: Order Comment: Speci men Type: BLOOD SPECIMENOrdering Facility: [facility] Address: [address] [place] [address] Performed By: #### 5 7021-8 ####[facility] LABCLIA [id number] [place] [address] CNOVSPon 02-21-2025 CNOVSP Normal [facility] CNPNon 02-21-2025 CNPN Normal [facility] Comprehensive metabolic 2000 panelon 02-21-2025 Albumin [Mass/Vol] 4.3 g/dL Normal 3.9-4.9 [facility] Comment on above: Order Comment: Speci men Type: BLOOD SPECIMENOrdering Facility: [facility] Address: [address] [place] [address] Performed By: #### 2 4323-8 ####[facility] LABCLIA [id number] [place] [address] ALP [Catalytic activity/Vol] 83 U/L Normal 34-123 [facility] Comment on above: Order Comment: Speci men Type: BLOOD SPECIMENOrdering Facility: [facility] Address: [address] [place] [address] Performed By: #### 2 4323-8 ####[facility] LABCLIA [id number] [place] [address] ALT [Catalytic activity/Vol] 49 U/L High 7-38 [facility] Comment on above: Order Comment: Speci men Type: BLOOD SPECIMENOrdering Facility: [facility] Address: [address] [place] [address] Performed By: #### 2 4323-8 ####[facility] LABCLIA [id number] [place] [address] Anion gap [Moles/Vol] 17 mmol/L High 8-15 [facility] Comment on above: Order Comment: Speci men Type: BLOOD SPECIMENOrdering Facility: [facility] Address: [address] [place] [address] Performed By: #### 2 4323-8 ####[facility] LABCLIA [id number] [place] [address] AST [Catalytic activity/Vol] 20 U/L Normal 13-35 [facility] Comment on above: Order Comment: Speci men Type: BLOOD SPECIMENOrdering Facility: [facility] Address: [address] [place] [address] Performed By: #### 2 4323-8 ####[facility] LABCLIA [id number] [place] [address] Bilirubin [Mass/Vol] 0.3 mg/dL Normal 0.2-1.3 [facility] Comment on above: Order Comment: Speci men Type: BLOOD SPECIMENOrdering Facility: [facility] Address: [address] [place], [place] [address] Performed By: #### 2 4323-8 ####[facility] LABCLIA [id number] [place] [address] Calcium [Mass/Vol] 10.2 mg/dL Normal 8.5-10.2 [facility] Comment on above: Order Comment: Speci men Type: BLOOD SPECIMENOrdering Facility: [facility] Address: [address] [place] [address] Performed By: #### 2 4323-8 ####[facility] LABCLIA [id number] [place] [address] Chloride [Moles/Vol] 101 mmol/L Normal 98-107 [facility] Comment on above: Order Comment: Speci men Type: BLOOD SPECIMENOrdering Facility: [facility] Address: [address] [place] [address] Performed By: #### 2 4323-8 ####[facility] LABCLIA [id number] [place] [address] CO2 [Moles/Vol] 20 mmol/L Low 22-30 [facility] Comment on above: Order Comment: Speci men Type: BLOOD SPECIMENOrdering Facility: [facility] Address: [address] [place] [address] Performed By: #### 2 4323-8 ####[facility] LABCLIA [id number] [place] [address] Creatinine [Mass/Vol] 0.49 mg/dL Low 0.58-0.96 [facility] Comment on above: Order Comment: Speci men Type: BLOOD SPECIMENOrdering Facility: [facility] Address: [address] [place] [address] Performed By: #### 2 4323-8 ####[facility] LABCLIA [id number] [place] [address] eGFRcr SerPlBld CKD-EPI 2020 119 mL/min/1.73m??? Normal >=60 [facility] Comment on above: Order Comment: Speci men Type: BLOOD SPECIMENOrdering Facility: [facility] Address: [address] [place] [address] Result Comment: Erin mated Glomerular Filtration Rate [...] actual GFR. Performed By: #### 2 4323-8 ####[facility] LABCLIA [id number] [place] [address] Glucose [Mass/Vol] 248 mg/dL High 74-99 [facility] Comment on above: Order Comment: Semaj men Type: BLOOD SPECIMENOrdering Facility: [facility] Address: [address] [place] [address] Result Comment: The [place] Diabetes Association (ADA) provides guidance for cutoff [...] Standards of Medical Care in Diabetes 2016, [place] Diabetes Association. Diabetes Care. 2016.39(Suppl 1). Performed By: #### 2 4323-8 ####[facility] LABCLIA [id number] [place] [address] Potassium [Moles/Vol] 4.1 mmol/L Normal 3.7-5.1 [facility] Comment on above: Order Comment: Semaj cortés Type: BLOOD SPECIMENOrdering Facility: [facility] Address: [address] [place] [address] Performed By: #### 2 4323-8 ####[facility] LABCLIA [id number] [place] [address] Protein [Mass/Vol] 7.6 g/dL Normal 6.3-8.0 [facility] Comment on above: Order Comment: Semaj men Type: BLOOD SPECIMENOrdering Facility: [facility] Address: [address] [place] [address] Performed By: #### 2 4323-8 ####[facility] LABCLIA [id number] [place] [address] Sodium [Moles/Vol] 138 mmol/L Normal 136-144 [facility] Comment on above: Order Comment: Speci men Type: BLOOD SPECIMENOrdering Facility: [facility] Address: [address] [place] [address] Performed By: #### 2 4323-8 ####[facility] LABCLIA [id number] [place] [address] Urea nitrogen [Mass/Vol] 16 mg/dL Normal 7-21 [facility] Comment on above: Order Comment: Speci men Type: BLOOD SPECIMENOrdering Facility: [facility] Address: [address] [place] [address] Performed By: #### 2 4323-8 ####[facility] LABCLIA [id number] [place] [address] Ferritin SerPl-mCncon 2024 Ferritin [Mass/Vol] 83.6 ng/mL Normal 14.7-205.1 [facility] Comment on above: Order Comment: Speci men Type: BLOOD SPECIMENOrdering Facility: [facility] Address: [address] [place] [address] Performed By: #### 5 0190-8, 2284-8, 2132-9, 2276-4 ####[facility] LABCLIA [id number] [place] [address] [place] Folate SerPl-mCncon 02-22-20 25 Folate [Mass/Vol] ng/mL Normal >4.7 [facility] Comment on above: Order Comment: Speci men Type: BLOOD SPECIMENOrdering Facility: [facility] Address: [address] [place] [address] Result Comment: A re sult of > 20 ng/mL is not necessarily indicative of a pathologic or treatable condition: it reflects a limitation of the test methodology.Assay reference range: 4.8 to 24.2 ng/mL. Suitable for detection of folate deficiency.Reference:Folate III (Folate III) [package insert V 1.0 [place]]. [facility], [place], [place]: March 2015. Performed By: #### 5 0190-8, 2284-8, 2132-9, 2276-4 ####[facility] LABCLIA [id number] [place] [address] [place] IMMUNOGLOBULINS,IGG,IGA,IGMo n 02-21-2025 IgA [Mass/Vol] 184 mg/dL Normal 70-400 [facility] Comment on above: Order Comment: Speci men Type: BLOOD SPECIMENOrdering Facility: [facility] Address: [address] [place] [address] Performed By: #### S ERIMM ####[facility] LABCLIA [id number] [place] [address] [place] IgG [Mass/Vol] 610 mg/dL Low 700-1600 [facility] Comment on above: Order Comment: Speci men Type: BLOOD SPECIMENOrdering Facility: [facility] Address: [address] [place] [address] Performed By: #### S ERIMM ####[facility] LABCLIA [id number] [place] [address] [place] IgM [Mass/Vol] 454 mg/dL High 40-230 [facility] Comment on above: Order Comment: Speci men Type: BLOOD SPECIMENOrdering Facility: [facility] Address: [address] [place] [address] Performed By: #### S ERIMM ####[facility] LABIA [id number] [place] [id number] [place] Iron and Iron binding capaci ty panelon 02-21-2025 Iron [Mass/Vol] 156 ug/dL Normal 41-186 [facility] Comment on above: Order Comment: Speci men Type: BLOOD SPECIMENOrdering Facility: [facility] Address: [address] [place], [place] [address] Performed By: #### 5 0190-8, 2283-8, 2132-01, 2275-08 ####[facility] LABCLIA [id number] [address] [address] [place] Iron binding capacity [Mass/Vol] 443 ug/dL High 232-386 [facility] Comment on above: Order Comment: Speci men Type: BLOOD SPECIMENOrdering Facility: [facility] Address: [address] [place] [address] Performed By: #### 5 0190-8, 2283-8, 2132-01, 2275-08 ####[facility] LABIA [id number] [place] [id number] [place] Iron/TIBC [Molar ratio] 35.2 % Normal 15.0-57.0 [facility] Comment on above: Order Comment: Speci men Type: BLOOD SPECIMENOrdering Facility: [facility] Address: [address] [place] [address] Performed By: #### 5 0190-8, 2283-8, 2132-01, 2275-08 ####[facility] LABIA [id number] [address] [address] [place] Vit B12 [facility] 10-01-2 025 Cobalamin (Vitamin B12) [Mass/Vol] 694 pg/mL Normal 232-1245 [facility] Comment on above: Order Comment: Speci men Type: BLOOD SPECIMENOrdering Facility: [facility] Address: [address] [place], [place] [address] Performed By: #### 5 0190-8, 8, 2132-01, 2275-08 ####[facility] LABIA [id number] [address] [address] [place] CNPNon 02-12-2025 CNPN Normal [facility] HCG ( test) IA.rapi d Ql (U)Ordered By: Adolfotobi Kang on 01-31-2025 HCG ( test) Ql (U) Negative [facility] HCG,Urineon 01-31-2025 Beta HCG ( test) Ql (U) Negative Normal [facility] Comment on above: Result Comment: PERF ORMED BY: [facility] [address] [place] [id number] PATHOLOGIST [employer]ODUCT DEVELOPMENT MANAGER TIM FOOTE M.D. Performed By: #### U HCG #### [facility] [address] [id number] [facility] BI US BREAST LIMITED LEFTon 01-26-2025 BI [...] Normal Not Available CNPDede 01-18-2025 CNPN Normal [facility] 25(OH)D3 SerPl-mCncon 2024 25-hydroxyvitamin D3 [Mass/Vol] 32.2 ng/mL Normal 31.0-80.0 [facility] Comment on above: Order Comment: Speci men Type: BLOOD SPECIMENOrdering Facility: [facility] Address: [address] [place] [address] Performed By: #### 1 989-3 ####[facility] LABCLIA [id number] [address] OF [facility] BLOOD TB SCREENon 01-11-2025 M. tuberculosis tuberculin stim IFN-g Ql (Bld) Negative Normal [facility] Comment on above: Order Comment: Speci men Type: BLOOD SPECIMENOrdering Facility: [facility] Address: [address] [place] [address] Performed By: #### I NFTBP ####[facility] LABCLIA [id number] [place] [address] [place] MITOGEN MINUS NIL >9.97 Normal >=0.50 [facility] Comment on above: Order Comment: Speci men Type: BLOOD SPECIMENOrdering Facility: [facility] Address: [address] [place] [address] Performed By: #### I NFTBP ####[facility] LABCLIA [id number] [address] [place] TB GAMMA INTERPRETATION Normal [facility] Comment on above: Order Comment: Speci men Type: BLOOD SPECIMENOrdering Facility: [facility] Address: [address] [place] [address] Performed By: #### I NFTBP ####[facility] LABCLIA [id number] [address] [place] TB NIL 0.03 IU/mL Normal <=8.00 [facility] Comment on above: Order Comment: Speci men Type: BLOOD SPECIMENOrdering Facility: [facility] Address: [address] [place] [address] Performed By: #### I NFTBP ####[facility] LABCLIA [id number] [address] [place] TB1 AG MINUS NIL 0.01 IU/mL Normal <0.35 [facility] Comment on above: Order Comment: Speci men Type: BLOOD SPECIMENOrdering Facility: [facility] Address: [address] [place] [address] Performed By: #### I NFTBP ####[facility] LABCLIA [id number] [address] TB2 AG MINUS NIL 0.01 IU/mL Normal <0.35 [facility] Comment on above: Order Comment: Speci men Type: BLOOD SPECIMENOrdering Facility: [facility] Address: [address] [place] [address] Performed By: #### I NFTBP ####[facility] LABCLIA [id number] [address] CBC panel Auto (Bld)on 01-11 Erythrocyte distribution width (RBC) [Ratio] 14.5 % 11.5 - 15.0 % [facility] Hematocrit (Bld) [Volume fraction] 41.5 % 36.0 - 46.0 % [facility] Hemoglobin (Bld) [Mass/Vol] 13.8 g/dL 11.5 - 15.5 g/dL [facility] Interpretation and review of laboratory results Abnormal [facility] MCH (RBC) [Entitic mass] 32.2 pg 26.0 - 34.0 pg [facility] MCHC (RBC) [Mass/Vol] 33.3 g/dL 30.5 - 36.0 g/dL [facility] MCV (RBC) [Entitic vol] 96.7 fL 80.0 - 100.0 fL [facility] Nucleated RBC (Bld) [#/Vol] NINF [facility] Platelet mean volume (Bld) [Entitic vol] 10.6 fL 9.0 - 12.7 fL [facility] Platelets (Bld) [#/Vol] 265 10*3/uL [facility] RBC (Bld) [#/Vol] 4.29 10*6/uL 3.90 - 5.2 0 m/uL [facility] WBC (Bld) [#/Vol] 12.61 10*3/uL [facility] Erythrocyte distribution width (RBC) [Ratio] 14.5 % Normal 11.5-15.0 [facility] Comment on above: Order Comment: Speci men Type: BLOOD SPECIMENOrdering Facility: [facility] Address: [address] [place] [address] Performed By: #### 5 8410-2 ####[facility] LABCLIA [id number] [place] [address] Hematocrit (Bld) [Volume fraction] 41.5 % Normal 36.0-46.0 [facility] Comment on above: Order Comment: Speci men Type: BLOOD SPECIMENOrdering Facility: [facility] Address: [address] [place] [address] Performed By: #### 5 8410-2 ####[facility] LABCLIA [id number] [place] [address] Hemoglobin (Bld) [Mass/Vol] 13.8 g/dL Normal 11.5-15.5 [facility] Comment on above: Order Comment: Speci men Type: BLOOD SPECIMENOrdering Facility: [facility] Address: [address] [place] [address] Performed By: #### 5 8410-2 ####[facility] LABCLIA [id number] [place] [address] MCH (RBC) [Entitic mass] 32.2 pg Normal 26.0-34.0 [facility] Comment on above: Order Comment: Speci men Type: BLOOD SPECIMENOrdering Facility: [facility] Address: [address] [place] [address] Performed By: #### 5 8410-2 ####[facility] LABCLIA [id number] [place] [address] MCHC (RBC) [Mass/Vol] 33.3 g/dL Normal 30.5-36.0 [facility] Comment on above: Order Comment: Speci men Type: BLOOD SPECIMENOrdering Facility: [facility] Address: [address] [place] [address] Performed By: #### 5 8410-2 ####[facility] LABCLIA [id number] [place] [address] MCV (RBC) [Entitic vol] 96.7 fL Normal 80.0-100.0 [facility] Comment on above: Order Comment: Speci men Type: BLOOD SPECIMENOrdering Facility: [facility] Address: [address] [place] [address] Performed By: #### 5 8410-2 ####[facility] LABCLIA [id number] [place] [address] Nucleated RBC (Bld) [#/Vol] 10*3/uL Normal <0.01 [facility] Comment on above: Order Comment: Speci men Type: BLOOD SPECIMENOrdering Facility: [facility] Address: [address] [place] [address] Performed By: #### 5 8410-2 ####[facility] LABCLIA [id number] [place] [address] Platelet mean volume (Bld) [Entitic vol] 10.6 fL Normal 9.0-12.7 [facility] Comment on above: Order Comment: Speci men Type: BLOOD SPECIMENOrdering Facility: [facility] Address: [address] [place] [address] Performed By: #### 5 8410-2 ####[facility] LABIA [id number] [place] [address] Platelets (Bld) [#/Vol] 265 10*3/uL Normal 150-400 [facility] Comment on above: Order Comment: Speci men Type: BLOOD SPECIMENOrdering Facility: [facility] Address: [address] [place] [address] Performed By: #### 5 8410-2 ####[facility] LABCLIA [id number] [place] [address] RBC (Bld) [#/Vol] 4.29 10*6/uL Normal 3.90-5.20 [facility] Comment on above: Order Comment: Speci men Type: BLOOD SPECIMENOrdering Facility: [facility] Address: [address] [place] [address] Performed By: #### 5 8410-2 ####[facility] LABCLIA [id number] [place] [address] WBC (Bld) [#/Vol] 12.61 10*3/uL High 3.70-11.00 [facility] Comment on above: Order Comment: Speci men Type: BLOOD SPECIMENOrdering Facility: [facility] Address: [address] [place] [address] Performed By: #### 5 8410-2 ####[facility] LABCLIA [id number] [place] [address] CRP [facility] CRP [Mass/Vol] mg/L Normal <0.9 [facility] Comment on above: Order Comment: Speci men Type: BLOOD SPECIMENOrdering Facility: [facility] Address: [address] [place] [address] Performed By: #### 1 988-5, 2132-9 ####[facility] LABCLIA [id number] [place] [id number] [place] Comprehensive metabolic 2000 panelOrdered By: Josse Merlos on 01-11-2025 Albumin [Mass/Vol] 3.9 g/dL 3.9 - 4.9 g/dL [facility] ALP [Catalytic activity/Vol] 83 U/L 34 - 123 U/L [facility] ALT [Catalytic activity/Vol] 42 U/L High 7 - 38 U/L [facility] Anion gap [Moles/Vol] 10 mmol/L 8 - 15 mmol/L [facility] AST [Catalytic activity/Vol] 22 U/L 13 - 35 U/L [facility] Bilirubin [Mass/Vol] 0.2 mg/dL 0.2 - 1 .3 mg/dL [facility] Calcium [Mass/Vol] 9.7 mg/dL 8.5 - 10. 2 mg/dL [facility] Chloride [Moles/Vol] 103 mmol/L 98 - 10 7 mmol/L [facility] CO2 [Moles/Vol] 23 mmol/L 22 - 30 mmol/L [facility] Creatinine [Mass/Vol] 0.50 mg/dL Low 0.58 - 0.96 mg/dL [facility] GFR/1.73 sq M.predicted among non-blacks MDRD (S/P/Bld) [Vol rate/Area] 119 mL/min/{1.73_m2} - PINF [facility] Comment on above: Estimated Glomerular Filtration [...] [facility] Comment on above: The [place] Diabete s Association (ADA) provides guidance for [...] Standards of Medical Care in Diabetes 2016, [place] Diabetes Association. Diabetes Care. 2016.39(Suppl 1). Interpretation and review of laboratory results Abnormal [facility] Potassium [Moles/Vol] 4.1 mmol/L 3.7 - 5.1 mmol/L [facility] Protein [Mass/Vol] 6.8 g/dL 6.3 - 8.0 g/dL [facility] Sodium [Moles/Vol] 136 mmol/L 136 - 144 mmol/L [facility] Urea nitrogen [Mass/Vol] 15 mg/dL 7 - 21 mg/dL [facility] Comprehensive metabolic 2000 panelon 01-11-2025 Albumin [Mass/Vol] 3.9 g/dL Normal 3.9-4.9 [facility] Comment on above: Order Comment: Speci men Type: BLOOD SPECIMENOrdering Facility: [facility] Address: [address] [place] [address] Performed By: #### 2 4323-8 ####[facility] LABCLIA [id number] [place] [address] ALP [Catalytic activity/Vol] 83 U/L Normal 34-123 [facility] Comment on above: Order Comment: Speci men Type: BLOOD SPECIMENOrdering Facility: [facility] Address: [address] [place] [address] Performed By: #### 2 4323-8 ####[facility] LABCLIA [id number] [place] [address] ALT [Catalytic activity/Vol] 42 U/L High 7-38 [facility] Comment on above: Order Comment: Speci men Type: BLOOD SPECIMENOrdering Facility: [facility] Address: [address] [place] [address] Performed By: #### 2 4323-8 ####[facility] LABCLIA [id number] [place] [address] Anion gap [Moles/Vol] 10 mmol/L Normal 8-15 [facility] Comment on above: Order Comment: Speci men Type: BLOOD SPECIMENOrdering Facility: [facility] Address: [address] [place] [address] Performed By: #### 2 4323-8 ####[facility] LABCLIA [id number] [place] [address] AST [Catalytic activity/Vol] 22 U/L Normal 13-35 [facility] Comment on above: Order Comment: Speci men Type: BLOOD SPECIMENOrdering Facility: [facility] Address: [address] [place] [address] Performed By: #### 2 4323-8 ####[facility] LABCLIA [id number] [place] [address] Bilirubin [Mass/Vol] 0.2 mg/dL Normal 0.2-1.3 [facility] Comment on above: Order Comment: Speci men Type: BLOOD SPECIMENOrdering Facility: [facility] Address: [address] [place] [address] Performed By: #### 2 4323-8 ####[facility] LABCLIA [id number] [place] [address] Calcium [Mass/Vol] 9.7 mg/dL Normal 8.5-10.2 [facility] Comment on above: Order Comment: Speci men Type: BLOOD SPECIMENOrdering Facility: [facility] Address: [address] [place] [address] Performed By: #### 2 4323-8 ####[facility] LABCLIA [id number] [place] [address] Chloride [Moles/Vol] 103 mmol/L Normal 98-107 [facility] Comment on above: Order Comment: Speci men Type: BLOOD SPECIMENOrdering Facility: [facility] Address: [address] [place] [address] Performed By: #### 2 4323-8 ####[facility] LABCLIA [id number] [place] [address] CO2 [Moles/Vol] 23 mmol/L Normal 22-30 [facility] Comment on above: Order Comment: Speci men Type: BLOOD SPECIMENOrdering Facility: [facility] Address: [address] [place] [address] Performed By: #### 2 4323-8 ####[facility] LABCLIA [id number] [place] [address] Creatinine [Mass/Vol] 0.50 mg/dL Low 0.58-0.96 [facility] Comment on above: Order Comment: Semaj cortés Type: BLOOD SPECIMENOrdering Facility: [facility] Address: [address] [place] [address] Performed By: #### 2 4323-8 ####[facility] LABCLIA [id number] [place] [address] eGFRcr SerPlBld CKD-EPI 2020 119 mL/min/1.73m??? Normal >=60 [facility] Comment on above: Order Comment: Semaj cortés Type: BLOOD SPECIMENOrdering Facility: [facility] Address: [address] [place] [address] Result Comment: Erin mated Glomerular Filtration Rate [...] actual GFR. Performed By: #### 2 4323-8 ####[facility] LABCLIA [id number] [place] [address] Glucose [Mass/Vol] 221 mg/dL High 74-99 [facility] Comment on above: Order Comment: Semaj cortés Type: BLOOD SPECIMENOrdering Facility: [facility] Address: [address] [place] [address] Result Comment: The [place] Diabetes Association (ADA) provides guidance for cutoff [...] Standards of Medical Care in Diabetes 2016, [place] Diabetes Association. Diabetes Care. 2016.39(Suppl 1). Performed By: #### 2 4323-8 ####[facility] LABCLIA [id number] [place] [address] Potassium [Moles/Vol] 4.1 mmol/L Normal 3.7-5.1 [facility] Comment on above: Order Comment: Speci men Type: BLOOD SPECIMENOrdering Facility: [facility] Address: [address] [place] [address] Performed By: #### 2 4323-8 ####[facility] LABCLIA [id number] [place] [address] Protein [Mass/Vol] 6.8 g/dL Normal 6.3-8.0 [facility] Comment on above: Order Comment: Speci men Type: BLOOD SPECIMENOrdering Facility: [facility] Address: [address] [place] [address] Performed By: #### 2 4323-8 ####[facility] LABCLIA [id number] [place] [address] Sodium [Moles/Vol] 136 mmol/L Normal 136-144 [facility] Comment on above: Order Comment: Speci men Type: BLOOD SPECIMENOrdering Facility: [facility] Address: [address] [place] [address] Performed By: #### 2 4323-8 ####[facility] LABCLIA [id number] [place] [address] Urea nitrogen [Mass/Vol] 15 mg/dL Normal 7-21 [facility] Comment on above: Order Comment: Speci men Type: BLOOD SPECIMENOrdering Facility: [facility] Address: [address] [place] [address] Performed By: #### 2 4323-8 ####[facility] LABCLIA [id number] [place] [address] ESR Westergren method (Bld) [Velocity]on 01-11-2025 ESR (Bld) [Velocity] 34 mm/h High 0-20 [facility] Comment on above: Order Comment: Speci men Type: BLOOD SPECIMENOrdering Facility: [facility] Address: [address] [place] [address] Performed By: #### 4 537-7 ####[facility] LABIA [id number] [place] [id number] [place] HBV core Ab Ser Qlon 025 HBV core Ab Ql (S) Negative Normal Negative [facility] Comment on above: Order Comment: Speci men Type: BLOOD SPECIMENOrdering Facility: [facility] Address: [address] [place] [address] Result Comment: No e vidence of current or past infection with Hepatitis B virus. Should recent infection be suspected, repeat testing may be considered 3-4 weeks after this draw. Performed By: #### 5 195-3, 55560-3, 07619-0 ####[facility] LABIA [id number] [address] [place] HBV surface Ab Ql (S)on 12-23 HBV surface Ab Qn (S) 177.77 mIU/mL Normal [facility] Comment on above: Order Comment: Speci men Type: BLOOD SPECIMENOrdering Facility: [facility] Address: [address] [place] [address] Result Comment: <8 m IU/mL: No serological evidence of immunity to Hepatitis B Virus.>/= 8 to <12 mIU/mL: No serological evidence of immunity to Hepatitis B Virus.>/= 12 mIU/mL: Consistent with serological evidence of immunity to Hepatitis B Virus. Performed By: #### 5 195-3, 12770-7, 61742-6 ####[facility] LABIA [id number] [place] [id number] [facility] [place] HBV surface Ab Ser Qlon 12-23 HBV surface Ab Ql (S) Positive Normal [facility] Comment on above: Order Comment: Speci men Type: BLOOD SPECIMENOrdering Facility: [facility] Address: [address] [place] [address] Result Comment: Cons istent with serological evidence of immunity to Hepatitis B Virus. Performed By: #### 5 195-3, 82047-1, 65886-7 ####[facility] LABCLIA [id number] [place] [address] [place] HBV surface Ag Ser Qlon 12-23 HBV surface Ag Ql (S) Negative Normal Negative [facility] Comment on above: Order Comment: Speci men Type: BLOOD SPECIMENOrdering Facility: [facility] Address: [address] [place] [address] Performed By: #### 5 195-3, 47143-2, 14324-4 ####[facility] LABCLIA [id number] [place] [address] [place] HCV Ab Ser Qlon 01-11-2025 HCV Ab Ql (S) Negative Normal Negative [facility] Comment on above: Order Comment: Speci men Type: BLOOD SPECIMENOrdering Facility: [facility] Address: [address] [place] [address] Result Comment: The result suggests no evidence of infection with Hepatitis C virus. Should recent infection be suspected, repeat testing may be considered 4-6 weeks after this draw. Performed By: #### 1 6128-1 ####[facility] LABCLIA [id number] [place] [id number] [place] Vit B12 SerPl-mCncon 025 Cobalamin (Vitamin B12) [Mass/Vol] 710 pg/mL Normal 232-1245 [facility] Comment on above: Order Comment: Speci men Type: BLOOD SPECIMENOrdering Facility: [facility] Address: [address] [place] [address] Performed By: #### 1 988-5, 2132-9 ####[facility] LABCLIA [id number] [place] [address] [place] CBC W Auto Differential pane l (Bld)on 11-29-2024 Basophils (Bld) [#/Vol] 0.09 10*3/uL Normal <0.11 [facility] Comment on above: Order Comment: Speci men Type: BLOOD SPECIMENOrdering Facility: [facility] Address: [address] [place] [address] Performed By: #### 5 7021-8 ####[facility] LABCLIA [id number] [place] [address] Basophils/100 WBC (Bld) 0.7 % Normal [facility] Comment on above: Order Comment: Speci men Type: BLOOD SPECIMENOrdering Facility: [facility] Address: [address] [place] [address] Performed By: #### 5 7021-8 ####[facility] LABCLIA [id number] [place] [address] Differential cell count method Nom (Bld) Auto Normal [facility] Comment on above: Order Comment: Speci men Type: BLOOD SPECIMENOrdering Facility: [facility] Address: [address] [place] [address] Performed By: #### 5 7021-8 ####[facility] LABCLIA [id number] [place] [address] Eosinophils (Bld) [#/Vol] 0.09 10*3/uL Normal <0.46 [facility] Comment on above: Order Comment: Speci men Type: BLOOD SPECIMENOrdering Facility: [facility] Address: [address] [place] [address] Performed By: #### 5 7021-8 ####[facility] LABCLIA [id number] [place] [address] Eosinophils/100 WBC (Bld) 0.7 % Normal [facility] Comment on above: Order Comment: Speci men Type: BLOOD SPECIMENOrdering Facility: [facility] Address: [address] [place] [address] Performed By: #### 5 7021-8 ####[facility] LABCLIA [id number] [place] [address] Erythrocyte distribution width (RBC) [Ratio] 14.8 % Normal 11.5-15.0 [facility] Comment on above: Order Comment: Speci men Type: BLOOD SPECIMENOrdering Facility: [facility] Address: [address] [place] [address] Performed By: #### 5 7021-8 ####[facility] LABCLIA [id number] [place] [address] Hematocrit (Bld) [Volume fraction] 42.9 % Normal 36.0-46.0 [facility] Comment on above: Order Comment: Speci men Type: BLOOD SPECIMENOrdering Facility: [facility] Address: [address] [place] [address] Performed By: #### 5 7021-8 ####[facility] LABIA [id number] [place] [address] Hemoglobin (Bld) [Mass/Vol] 14.0 g/dL Normal 11.5-15.5 [facility] Comment on above: Order Comment: Speci men Type: BLOOD SPECIMENOrdering Facility: [facility] Address: [address] [place] [address] Performed By: #### 5 7021-8 ####[facility] LABIA [id number] [place] [address] Immature granulocytes (Bld) [#/Vol] 0.18 10*3/uL High <0.10 [facility] Comment on above: Order Comment: Speci men Type: BLOOD SPECIMENOrdering Facility: [facility] Address: [address] [place] [address] Performed By: #### 5 7021-8 ####[facility] LABCLIA [id number] [place] [address] Immature granulocytes/100 WBC (Bld) 1.5 % Normal [facility] Comment on above: Order Comment: Speci men Type: BLOOD SPECIMENOrdering Facility: [facility] Address: [address] [place] [address] Performed By: #### 5 7021-8 ####[facility] LABCLIA [id number] [place] [address] Lymphocytes (Bld) [#/Vol] 1.99 10*3/uL Normal 1.00-4.00 [facility] Comment on above: Order Comment: Speci men Type: BLOOD SPECIMENOrdering Facility: [facility] Address: [address] [place] [address] Performed By: #### 5 7021-8 ####[facility] LABCLIA [id number] [place] [address] Lymphocytes/100 WBC (Bld) 16.4 % Normal [facility] Comment on above: Order Comment: Speci men Type: BLOOD SPECIMENOrdering Facility: [facility] Address: [address] [place] [address] Performed By: #### 5 7021-8 ####[facility] LABCLIA [id number] [place] [address] MCH (RBC) [Entitic mass] 31.7 pg Normal 26.0-34.0 [facility] Comment on above: Order Comment: Speci men Type: BLOOD SPECIMENOrdering Facility: [facility] Address: [address] [place] [address] Performed By: #### 5 7021-8 ####[facility] LABIA [id number] [place] [address] MCHC (RBC) [Mass/Vol] 32.6 g/dL Normal 30.5-36.0 [facility] Comment on above: Order Comment: Speci men Type: BLOOD SPECIMENOrdering Facility: [facility] Address: [address] [place] [address] Performed By: #### 5 7021-8 ####[facility] LABCLIA [id number] [place] [address] MCV (RBC) [Entitic vol] 97.1 fL Normal 80.0-100.0 [facility] Comment on above: Order Comment: Speci men Type: BLOOD SPECIMENOrdering Facility: [facility] Address: [address] [place] [address] Performed By: #### 5 7021-8 ####[facility] LABCLIA [id number] [place] [address] Monocytes (Bld) [#/Vol] 0.67 10*3/uL Normal <0.87 [facility] Comment on above: Order Comment: Speci men Type: BLOOD SPECIMENOrdering Facility: [facility] Address: [address] [place] [address] Performed By: #### 5 7021-8 ####[facility] LABCLIA [id number] [place] [address] Monocytes/100 WBC (Bld) 5.5 % Normal [facility] Comment on above: Order Comment: Speci men Type: BLOOD SPECIMENOrdering Facility: [facility] Address: [address] [place] [address] Performed By: #### 5 7021-8 ####[facility] LABCLIA [id number] [place] [address] Neutrophils (Bld) [#/Vol] 9.15 10*3/uL High 1.45-7.50 [facility] Comment on above: Order Comment: Speci men Type: BLOOD SPECIMENOrdering Facility: [facility] Address: [address] [place] [address] Performed By: #### 5 7021-8 ####[facility] LABCLIA [id number] [place] [address] Neutrophils/100 WBC (Bld) 75.2 % Normal [facility] Comment on above: Order Comment: Speci men Type: BLOOD SPECIMENOrdering Facility: [facility] Address: [address] [place] [address] Performed By: #### 5 7021-8 ####[facility] LABCLIA [id number] [place] [address] Nucleated RBC (Bld) [#/Vol] 10*3/uL Normal <0.01 [facility] Comment on above: Order Comment: Speci men Type: BLOOD SPECIMENOrdering Facility: [facility] Address: [address] [place] [address] Performed By: #### 5 7021-8 ####[facility] LABCLIA [id number] [place] [address] Nucleated RBC/100 WBC (Bld) [Ratio] 0.0 /100 WBC Normal [facility] Comment on above: Order Comment: Speci men Type: BLOOD SPECIMENOrdering Facility: [facility] Address: [address] [place] [address] Performed By: #### 5 7021-8 ####[facility] LABCLIA [id number] [place] [address] Platelet mean volume (Bld) [Entitic vol] 9.7 fL Normal 9.0-12.7 [facility] Comment on above: Order Comment: Speci men Type: BLOOD SPECIMENOrdering Facility: [facility] Address: [address] [place] [address] Performed By: #### 5 7021-8 ####[facility] LABCLIA [id number] [place] [address] Platelets (Bld) [#/Vol] 281 10*3/uL Normal 150-400 [facility] Comment on above: Order Comment: Speci men Type: BLOOD SPECIMENOrdering Facility: [facility] Address: [address] [place] [address] Performed By: #### 5 7021-8 ####[facility] LABCLIA [id number] [place] [address] RBC (Bld) [#/Vol] 4.42 10*6/uL Normal 3.90-5.20 [facility] Comment on above: Order Comment: Speci men Type: BLOOD SPECIMENOrdering Facility: [facility] Address: [address] [place] [address] Performed By: #### 5 7021-8 ####[facility] LABIA [id number] [place] [address] WBC (Bld) [#/Vol] 12.17 10*3/uL High 3.70-11.00 [facility] Comment on above: Order Comment: Speci men Type: BLOOD SPECIMENOrdering Facility: [facility] Address: [address] [place] [address] Performed By: #### 5 7021-8 ####[facility] LABCLIA [id number] [place] [address] CNOVSPon 11-29-2024 CNOVSP Normal [facility] Comprehensive metabolic 2000 panelon 11-29-2024 Albumin [Mass/Vol] 4.1 g/dL Normal 3.9-4.9 [facility] Comment on above: Order Comment: Speci men Type: BLOOD SPECIMENOrdering Facility: [facility] Address: [address] [place] [address] Performed By: #### 2 4323-8 ####[facility] LABCLIA [id number] [place] [address] ALP [Catalytic activity/Vol] 61 U/L Normal 34-123 [facility] Comment on above: Order Comment: Speci men Type: BLOOD SPECIMENOrdering Facility: [facility] Address: [address] [place] [address] Performed By: #### 2 4323-8 ####[facility] LABCLIA [id number] [place] [address] ALT [Catalytic activity/Vol] 39 U/L High 7-38 [facility] Comment on above: Order Comment: Speci men Type: BLOOD SPECIMENOrdering Facility: [facility] Address: [address] [place] [address] Performed By: #### 2 4323-8 ####[facility] LABCLIA [id number] [place] [address] Anion gap [Moles/Vol] 13 mmol/L Normal 8-15 [facility] Comment on above: Order Comment: Speci men Type: BLOOD SPECIMENOrdering Facility: [facility] Address: [address] [place] [address] Performed By: #### 2 4323-8 ####[facility] LABCLIA [id number] [place] [address] AST [Catalytic activity/Vol] 16 U/L Normal 13-35 [facility] Comment on above: Order Comment: Speci men Type: BLOOD SPECIMENOrdering Facility: [facility] Address: [address] [place] [address] Performed By: #### 2 4323-8 ####[facility] LABCLIA [id number] [place] [address] Bilirubin [Mass/Vol] 0.2 mg/dL Normal 0.2-1.3 [facility] Comment on above: Order Comment: Speci men Type: BLOOD SPECIMENOrdering Facility: [facility] Address: [address] [place] [address] Performed By: #### 2 4323-8 ####[facility] LABCLIA [id number] [place] [address] Calcium [Mass/Vol] 9.7 mg/dL Normal 8.5-10.2 [facility] Comment on above: Order Comment: Speci men Type: BLOOD SPECIMENOrdering Facility: [facility] Address: [address] [place] [address] Performed By: #### 2 4323-8 ####[facility] LABCLIA [id number] [place] [address] Chloride [Moles/Vol] 102 mmol/L Normal 98-107 [facility] Comment on above: Order Comment: Speci men Type: BLOOD SPECIMENOrdering Facility: [facility] Address: [address] [place] [address] Performed By: #### 2 4323-8 ####[facility] LABCLIA [id number] [place] [address] CO2 [Moles/Vol] 23 mmol/L Normal 22-30 [facility] Comment on above: Order Comment: Speci men Type: BLOOD SPECIMENOrdering Facility: [facility] Address: [address] [place] [address] Performed By: #### 2 4323-8 ####[facility] LABCLIA [id number] [place] [address] Creatinine [Mass/Vol] 0.58 mg/dL Normal 0.58-0.96 [facility] Comment on above: Order Comment: Speci men Type: BLOOD SPECIMENOrdering Facility: [facility] Address: [address] [place] [address] Performed By: #### 2 4323-8 ####[facility] LABCLIA [id number] [place] [address] Creatinine and Glomerular filtration rate.predicted panel (S/P/Bld) 115 mL/min/1.73m??? Normal >=60 [facility] Comment on above: Order Comment: Speci men Type: BLOOD SPECIMENOrdering Facility: [facility] Address: [address] [place] [address] Result Comment: Erin mated Glomerular Filtration Rate [...] actual GFR. Performed By: #### 2 4323-8 ####[facility] LABCLIA [id number] [place] [address] Glucose [Mass/Vol] 233 mg/dL High 74-99 [facility] Comment on above: Order Comment: Semaj cortés Type: BLOOD SPECIMENOrdering Facility: [facility] Address: [address] [place] [address] Result Comment: The [place] [employer] (ADA) provides guidance for cutoff [...] Standards of Medical Care in Diabetes 2016, [place]. Diabetes Care. 2016.39(Suppl 1). Performed By: #### 2 4323-8 ####[facility] LABCLIA [id number] [place] [address] Potassium [Moles/Vol] 4.0 mmol/L Normal 3.7-5.1 [facility] Comment on above: Order Comment: Semaj cortés Type: BLOOD SPECIMENOrdering Facility: [facility] Address: [address] [place] [address] Performed By: #### 2 4323-8 ####[facility] LABCLIA [id number] [place] [address] Protein [Mass/Vol] 7.0 g/dL Normal 6.3-8.0 [facility] Comment on above: Order Comment: Semaj cortés Type: BLOOD SPECIMENOrdering Facility: [facility] Address: [address] [place] [address] Performed By: #### 2 4323-8 ####[facility] LABCLIA [id number] [place] [address] Sodium [Moles/Vol] 138 mmol/L Normal 136-144 [facility] Comment on above: Order Comment: Speci men Type: BLOOD SPECIMENOrdering Facility: [facility] Address: [address] [place] [address] Performed By: #### 2 4323-8 ####[facility] LABCLIA [id number] [place] [address] Urea nitrogen [Mass/Vol] 16 mg/dL Normal 7-21 [facility] Comment on above: Order Comment: Speci men Type: BLOOD SPECIMENOrdering Facility: [facility] Address: [address] [place] [address] Performed By: #### 2 4323-8 ####[facility] LABCLIA [id number] [place] [address] Ferritin SerPl-mCncon 2024 Ferritin [Mass/Vol] 63.6 ng/mL Normal 14.7-205.1 [facility] Comment on above: Order Comment: Speci men Type: BLOOD SPECIMENOrdering Facility: [facility] Address: [address] [place] [address] Performed By: #### 2 284-8, 85005-2, 2276-4, 2132-9 ####[facility] LABCLIA [id number] [place] [address] [place] Folate SerPl-mCncon 11-30-19 25 Folate [Mass/Vol] ng/mL Normal >4.7 [facility] Comment on above: Order Comment: Speci men Type: BLOOD SPECIMENOrdering Facility: [facility] Address: [address] [place] [address] Result Comment: A re sult of > 20 ng/mL is not necessarily indicative of a pathologic or treatable condition: it reflects a limitation of the test methodology.Assay reference range: 4.8 to 24.2 ng/mL. Suitable for detection of folate deficiency.Reference:Folate III (Folate III) [package insert V 1.0 [place]]. [facility], [place], [place]: March 2015. Performed By: #### 2 284-8, 27553-5, 2276-4, 2132-9 ####[facility] LABCLIA [id number] [place] [address] [place] IMMUNOGLOBULINS,IGG,IGA,IGMo n 11-29-2024 IgA [Mass/Vol] 169 mg/dL Normal 70-400 [facility] Comment on above: Order Comment: Speci men Type: BLOOD SPECIMENOrdering Facility: [facility] Address: [address] [place] [address] Performed By: #### S ERIMM ####[facility] LABCLIA [id number] [place] [address] [place] IgG [Mass/Vol] 596 mg/dL Low 700-1600 [facility] Comment on above: Order Comment: Speci men Type: BLOOD SPECIMENOrdering Facility: [facility] Address: [address] [place] [address] Performed By: #### S ERIMM ####[facility] LABCLIA [id number] [address] [place] IgM [Mass/Vol] 410 mg/dL High 40-230 [facility] Comment on above: Order Comment: Speci men Type: BLOOD SPECIMENOrdering Facility: [facility] Address: [address] [place] [address] Performed By: #### S ERIMM ####[facility] LABIA [id number] [place] [id number] [place] Iron and Iron binding capaci ty panelon 11-29-2024 Iron [Mass/Vol] 154 ug/dL Normal 41-186 [facility] Comment on above: Order Comment: Speci men Type: BLOOD SPECIMENOrdering Facility: [facility] Address: [address] [place] [id number] Performed By: #### 2 284-8, 57609-4, 2275-4, 9 ####[facility] LABCLIA [id number] [place] [id number] [place] Iron binding capacity [Mass/Vol] 363 ug/dL Normal 232-386 [facility] Comment on above: Order Comment: Speci men Type: BLOOD SPECIMENOrdering Facility: [facility] Address: [address] [place] [address] Performed By: #### 2 284-8, 68037-8, 2275-4, 9 ####[facility] LABIA [id number] [place] [address] [place] Iron/TIBC [Molar ratio] 42.4 % Normal 15.0-57.0 [facility] Comment on above: Order Comment: Speci men Type: BLOOD SPECIMENOrdering Facility: [facility] Address: [address] [place] [address] Performed By: #### 2 284-8, 00666-1, 6-4, 9 ####[facility] LABIA [id number] [place] [id number] [place] Vit B12 [facility] 09-2 025 Cobalamin (Vitamin B12) [Mass/Vol] 775 pg/mL Normal 232-1245 [facility] Comment on above: Order Comment: Speci men Type: BLOOD SPECIMENOrdering Facility: [facility] Address: [address] [place] [address] Performed By: #### 2 284-8, 07829-3, 2275-4, 9 ####[facility] LABIA [id number] [place] [id number] [place] CNPNon 11-20-2024 CNPN Normal [facility] CNPNon 11-15-2024 CNPN Normal [facility] CNPNon 10-06-2024 CNPN Normal [facility] 25(OH)D3 SerPl-mCncon 2024 25-hydroxyvitamin D3 [Mass/Vol] 30.9 ng/mL Low 31.0-80.0 [facility] Comment on above: Order Comment: Speci men Type: BLOOD SPECIMENOrdering Facility: [facility] Address: [address] [place] [address] Result Comment: Clas sification of 25 [place] Vitamin D status:Deficiency/Insufficiency: < or = 30 ng/ml.Sufficiency/Optimal Levels: 31-80 ng/mLToxicity: > 100 ng/mL.Test performed by chemiluminescent immunoassay. Performed By: #### 1 989-3 ####[facility] LABCLIA [id number] [place] [address] [place] 25-hydroxyvitamin D3 [Mass/V ol]on 10-02-2024 Interpretation and review of laboratory results Abnormal [facility] The reference range interval was based on an analysis of samples from healthy adults and may not pertain to children from 0-18 years old. [facility] C-REACTIVE PROTEINon 025 CRP [Mass/Vol] mg/dL NINF - 0.9 mg/dL [facility] CBC panel Auto (Bld)on 10-02 Erythrocyte distribution width (RBC) [Ratio] 16.2 % High 11.5 - 15.0 % [facility] Hematocrit (Bld) [Volume fraction] 41.3 % 36.0 - 46.0 % [facility] Hemoglobin (Bld) [Mass/Vol] 13.7 g/dL 11.5 - 15.5 g/dL [facility] Interpretation and review of laboratory results Abnormal [facility] MCH (RBC) [Entitic mass] 31.1 pg 26.0 - 34.0 pg [facility] MCHC (RBC) [Mass/Vol] 33.2 g/dL 30.5 - 36.0 g/dL [facility] MCV (RBC) [Entitic vol] 93.7 fL 80.0 - 100.0 fL [facility] Nucleated RBC (Bld) [#/Vol] NINF [facility] Platelet mean volume (Bld) [Entitic vol] 10.1 fL 9.0 - 12.7 fL [facility] Platelets (Bld) [#/Vol] 265 10*3/uL [facility] RBC (Bld) [#/Vol] 4.41 10*6/uL 3.90 - 5.2 0 m/uL [facility] WBC (Bld) [#/Vol] 10.07 10*3/uL [facility] Erythrocyte distribution width (RBC) [Ratio] 16.2 % High 11.5-15.0 [facility] Comment on above: Order Comment: Speci men Type: BLOOD SPECIMENOrdering Facility: [facility] Address: [address] [place] [address] Performed By: #### 5 8410-2 ####[facility] LABIA [id number] [place] [address] Hematocrit (Bld) [Volume fraction] 41.3 % Normal 36.0-46.0 [facility] Comment on above: Order Comment: Speci men Type: BLOOD SPECIMENOrdering Facility: [facility] Address: [address] [place] [address] Performed By: #### 5 8410-2 ####[facility] LABIA [id number] [place] [address] Hemoglobin (Bld) [Mass/Vol] 13.7 g/dL Normal 11.5-15.5 [facility] Comment on above: Order Comment: Speci men Type: BLOOD SPECIMENOrdering Facility: [facility] Address: [address] [place] [address] Performed By: #### 5 8410-2 ####[facility] LABCLIA [id number] [place] [address] MCH (RBC) [Entitic mass] 31.1 pg Normal 26.0-34.0 [facility] Comment on above: Order Comment: Speci men Type: BLOOD SPECIMENOrdering Facility: [facility] Address: [address] [place] [address] Performed By: #### 5 8410-2 ####[facility] LABCLIA [id number] [place] [address] MCHC (RBC) [Mass/Vol] 33.2 g/dL Normal 30.5-36.0 [facility] Comment on above: Order Comment: Speci men Type: BLOOD SPECIMENOrdering Facility: [facility] Address: [address] [place] [address] Performed By: #### 5 8410-2 ####[facility] LABCLIA [id number] [place] [address] MCV (RBC) [Entitic vol] 93.7 fL Normal 80.0-100.0 [facility] Comment on above: Order Comment: Speci men Type: BLOOD SPECIMENOrdering Facility: [facility] Address: [address] [place] [address] Performed By: #### 5 8410-2 ####[facility] LABCLIA [id number] [place] [address] Nucleated RBC (Bld) [#/Vol] 10*3/uL Normal <0.01 [facility] Comment on above: Order Comment: Speci men Type: BLOOD SPECIMENOrdering Facility: [facility] Address: [address] [place] [address] Performed By: #### 5 8410-2 ####[facility] LABCLIA [id number] [place] [address] Platelet mean volume (Bld) [Entitic vol] 10.1 fL Normal 9.0-12.7 [facility] Comment on above: Order Comment: Speci men Type: BLOOD SPECIMENOrdering Facility: [facility] [facility] Address: [address] [place] [address] Performed By: #### 5 8410-2 ####[facility] LABCLIA [id number] [place] [address] Platelets (Bld) [#/Vol] 265 10*3/uL Normal 150-400 [facility] Comment on above: Order Comment: Speci men Type: BLOOD SPECIMENOrdering Facility: [facility] Address: [address] [place] [address] Performed By: #### 5 8410-2 ####[facility] LABCLIA [id number] [place] [address] RBC (Bld) [#/Vol] 4.41 10*6/uL Normal 3.90-5.20 [facility] Comment on above: Order Comment: Speci men Type: BLOOD SPECIMENOrdering Facility: [facility] Address: [address] [place] [address] Performed By: #### 5 8410-2 ####[facility] LABCLIA [id number] [place] [address] WBC (Bld) [#/Vol] 10.07 10*3/uL Normal 3.70-11.00 [facility] Comment on above: Order Comment: Speci men Type: BLOOD SPECIMENOrdering Facility: [facility] Address: [address] [place] [address] Performed By: #### 5 8410-2 ####[facility] LABCLIA [id number] [place] [address] CRP SerPl-ncon 10-02-2024 CRP [Mass/Vol] mg/L Normal <0.9 [facility] Comment on above: Order Comment: Speci men Type: BLOOD SPECIMENOrdering Facility: [facility] Address: [address] [place] [address] Performed By: #### 1 988-5 ####[facility] LABCLIA [id number] [place] [address] [place] CRP [Mass/Vol]on 10-02-2024 Interpretation and review of laboratory results Normal [facility] Comprehensive metabolic 2000 panelOrdered By: Josse Merlos on 10-02-2024 Albumin [Mass/Vol] 3.9 g/dL 3.9 - 4.9 g/dL [facility] ALP [Catalytic activity/Vol] 61 U/L 34 - 123 U/L [facility] ALT [Catalytic activity/Vol] 41 U/L High 7 - 38 U/L [facility] Anion gap [Moles/Vol] 14 mmol/L 8 - 15 mmol/L [facility] AST [Catalytic activity/Vol] 18 U/L 13 - 35 U/L [facility] Bilirubin [Mass/Vol] 0.2 mg/dL 0.2 - 1 .3 mg/dL [facility] Calcium [Mass/Vol] 9.6 mg/dL 8.5 - 10. 2 mg/dL [facility] Chloride [Moles/Vol] 107 mmol/L 98 - 10 7 mmol/L [facility] CO2 [Moles/Vol] 20 mmol/L Low 22 - 30 mmol/L [facility] Creatinine [Mass/Vol] 0.59 mg/dL 0.58 - 0.96 mg/dL [facility] GFR/1.73 sq M.predicted among non-blacks MDRD (S/P/Bld) [Vol rate/Area] 115 mL/min/{1.73_m2} - PINF [facility] Comment on above: Estimated Glomerular Filtration [...] [facility] Comment on above: The [place] Diab[employer] s Association (ADA) provides guidance for [...] Standards of Medical Care in Diabetes 2016, [place] Diabetes [employer]. Diabetes Care. 2016.39(Suppl 1). Interpretation and review of laboratory results Abnormal [facility] Potassium [Moles/Vol] 4.1 mmol/L 3.7 - 5.1 mmol/L [facility] Protein [Mass/Vol] 6.8 g/dL 6.3 - 8.0 g/dL [facility] Sodium [Moles/Vol] 141 mmol/L 136 - 144 mmol/L [facility] Urea nitrogen [Mass/Vol] 19 mg/dL 7 - 21 mg/dL [facility] Comprehensive metabolic 2000 panelon 10-02-2024 Albumin [Mass/Vol] 3.9 g/dL Normal 3.9-4.9 [facility] Comment on above: Order Comment: Speci men Type: BLOOD SPECIMENOrdering Facility: [facility] Address: [address] [place] [address] Performed By: #### 2 4323-8 ####[facility] LABCLIA [id number] [place] [address] ALP [Catalytic activity/Vol] 61 U/L Normal 34-123 [facility] Comment on above: Order Comment: Speci men Type: BLOOD SPECIMENOrdering Facility: [facility] Address: [address] [place] [address] Performed By: #### 2 4323-8 ####[facility] LABCLIA [id number] [place] [address] ALT [Catalytic activity/Vol] 41 U/L High 7-38 [facility] Comment on above: Order Comment: Speci men Type: BLOOD SPECIMENOrdering Facility: [facility] Address: [address] [place] [address] Performed By: #### 2 4323-8 ####[facility] LABCLIA [id number] [place] [address] Anion gap [Moles/Vol] 14 mmol/L Normal 8-15 [facility] Comment on above: Order Comment: Speci men Type: BLOOD SPECIMENOrdering Facility: [facility] Address: [address] [place] [address] Performed By: #### 2 4323-8 ####[facility] LABCLIA [id number] [place] [address] AST [Catalytic activity/Vol] 18 U/L Normal 13-35 [facility] Comment on above: Order Comment: Speci men Type: BLOOD SPECIMENOrdering Facility: [facility] Address: [address] [place] [address] Performed By: #### 2 4323-8 ####[facility] LABCLIA [id number] [place] [address] Bilirubin [Mass/Vol] 0.2 mg/dL Normal 0.2-1.3 [facility] Comment on above: Order Comment: Speci men Type: BLOOD SPECIMENOrdering Facility: [facility] Address: [address] [place] [address] Performed By: #### 2 4323-8 ####[facility] LABCLIA [id number] [place] [address] Calcium [Mass/Vol] 9.6 mg/dL Normal 8.5-10.2 [facility] Comment on above: Order Comment: Speci men Type: BLOOD SPECIMENOrdering Facility: [facility] Address: [address] [place] [address] Performed By: #### 2 4323-8 ####[facility] LABCLIA [id number] [place] [address] Chloride [Moles/Vol] 107 mmol/L Normal 98-107 [facility] Comment on above: Order Comment: Speci men Type: BLOOD SPECIMENOrdering Facility: [facility] Address: [address] [place] [address] Performed By: #### 2 4323-8 ####[facility] LABCLIA [id number] [place] [address] CO2 [Moles/Vol] 20 mmol/L Low 22-30 [facility] Comment on above: Order Comment: Speci men Type: BLOOD SPECIMENOrdering Facility: [facility] Address: [address] [place] [address] Performed By: #### 2 4323-8 ####[facility] LABCLIA [id number] [place] [address] Creatinine [Mass/Vol] 0.59 mg/dL Normal 0.58-0.96 [facility] Comment on above: Order Comment: Semaj men Type: BLOOD SPECIMENOrdering Facility: [facility] Address: [address] [place] [address] Performed By: #### 2 4323-8 ####[facility] LABCLIA [id number] [place] [address] Creatinine and Glomerular filtration rate.predicted panel (S/P/Bld) 115 mL/min/1.73m??? Normal >=60 [facility] Comment on above: Order Comment: Semaj cortés Type: BLOOD SPECIMENOrdering Facility: [facility] Address: [address] [place] [address] Result Comment: Erin mated Glomerular Filtration Rate [...] actual GFR. Performed By: #### 2 4323-8 ####[facility] LABIA [id number] [place] [address] Glucose [Mass/Vol] 216 mg/dL High 74-99 [facility] Comment on above: Order Comment: Semaj cortés Type: BLOOD SPECIMENOrdering Facility: [facility] Address: [address] [place], [place] [address] Result Comment: The [place] Diabetes Association (ADA) provides guidance for cutoff [...] Standards of Medical Care in Diabetes 2016, [place] Diabetes Association. Diabetes Care. 2016.39(Suppl 1). Performed By: #### 2 4323-8 ####[facility] LABCLIA [id number] [place] [address] Potassium [Moles/Vol] 4.1 mmol/L Normal 3.7-5.1 [facility] Comment on above: Order Comment: Speci men Type: BLOOD SPECIMENOrdering Facility: [facility] Address: [address] [place] [address] Performed By: #### 2 4323-8 ####[facility] LABCLIA [id number] [place] [address] Protein [Mass/Vol] 6.8 g/dL Normal 6.3-8.0 [facility] Comment on above: Order Comment: Speci men Type: BLOOD SPECIMENOrdering Facility: [facility] Address: [address] [place] [address] Performed By: #### 2 4323-8 ####[facility] LABCLIA [id number] [place] [address] Sodium [Moles/Vol] 141 mmol/L Normal 136-144 [facility] Comment on above: Order Comment: Speci men Type: BLOOD SPECIMENOrdering Facility: [facility] Address: [address] [place] [address] Performed By: #### 2 4323-8 ####[facility] LABCLIA [id number] [place] [address] Urea nitrogen [Mass/Vol] 19 mg/dL Normal 7-21 [facility] Comment on above: Order Comment: Speci men Type: BLOOD SPECIMENOrdering Facility: [facility] Address: [address] [place], [place] [address] Performed By: #### 2 4323-8 ####[facility] LABCLIA [id number] [place] [address] ESR Westergren method (Bld) [Velocity]on 10-02-2024 ESR (Bld) [Velocity] 28 mm/h High [facility] Interpretation and review of laboratory results Abnormal [facility] ESR (Bld) [Velocity] 28 mm/h High 0-20 [facility] Comment on above: Order Comment: Speci men Type: BLOOD SPECIMENOrdering Facility: [facility] Address: [address] [place], [place] [address] Performed By: #### 4 537-7 ####[facility] LABCLIA [id number] [place] [id number] [place] VITAMIN D 25 HYDROXYon 10-02 25-hydroxyvitamin D3 [Mass/Vol] 30.9 ng/mL Low 31.0 - 80.0 ng/mL [facility] Comment on above: Classification of 25 [place] Vitamin D status: Deficiency/Insufficiency: < or = 30 ng/ml. Sufficiency/Optimal Levels: 31-80 ng/mL Toxicity: > 100 ng/mL. Test performed by chemiluminescent immunoassay. DNA EXTRACTION BLOODOrdered By: Dominga Araujo on 09-20-2024 CONCENTRATION (NG/UL) 189.3 ng/ul [facility] Total Yield 94.65 ug [facility] Comment on above: Specimens will be av ailable for 3 years from date of collection. To order testing on this specimen for [facility] patients, please place an [facility] order for DNA and RNA for Clinical Testing (SQNUCADD). To order for patients outside of the [facility] system, please request DNA and RNA for Clinical Testing, order code [id number]. If additional paperwork is required for testing, please email completed forms to . VOLUME (UL) OF DNA 500 uL [facility] CNOVon 09-19-2024 CNOV Normal [facility] DNA EXTRACTION BLOODon 09-19 CONCENTRATION (NG/UL) 189.3 ng/ul Normal [facility] Comment on above: Order Comment: Speci men Type: BLOOD SPECIMENOrdering Facility: [facility] Address: [address] [place] [address] Performed By: #### N UCBLD ####[facility] LIMSCLIA [id number] [place] [address] [place] TOTAL YIELD 94.65 ug Normal [facility] Comment on above: Order Comment: Speci men Type: BLOOD SPECIMENOrdering Facility: [facility] Address: [address] [place] [address] Result Comment: Spec imens will be available for 3 years from date of collection. To order testing on this specimen for [facility] patients, please place an [facility] order for DNA and RNA for Clinical Testing (SQNUCADD). To order for patients outside of the [facility] system, please request DNA and RNA for Clinical Testing, order code [id number].If additional paperwork is required for testing, please email completed forms to . Performed By: #### N UCBLD ####[facility] LIMSCLIA [id number] [place] [address] [place] VOLUME (UL) OF DNA 500 uL Normal [facility] Comment on above: Order Comment: Speci men Type: BLOOD SPECIMENOrdering Facility: [facility] Address: [address] [place] [address] Performed By: #### N UCBLD ####[facility] LIMSCLIA [id number] [place] [address] [place] CNPNon 09-18-2024 CNPN Normal [facility] CNPNon 09-13-2024 CNPN Normal [facility] CNOVSPon 09-06-2024 CNOVSP Normal [facility] CNPNon 09-06-2024 CNPN Normal [facility] IMMUNOGLOBULINS,IGG,IGA,IGMo n 09-06-2024 IgA [Mass/Vol] 163 mg/dL Normal 70-400 [facility] Comment on above: Order Comment: Speci men Type: BLOOD SPECIMENOrdering Facility: [facility] Address: [address] [place] [address] Performed By: #### S ERIMM ####[facility] LABCLIA [id number] [place] [address] [place] IgG [Mass/Vol] 599 mg/dL Low 700-1600 [facility] Comment on above: Order Comment: Speci men Type: BLOOD SPECIMENOrdering Facility: [facility] Address: [address] [place] [address] Performed By: #### S ERIMM ####[facility] LABCLIA [id number] [place] [address] [place] IgM [Mass/Vol] 387 mg/dL High 40-230 [facility] Comment on above: Order Comment: Speci men Type: BLOOD SPECIMENOrdering Facility: [facility] Address: [address] [place] [address] Performed By: #### S ERIMM ####[facility] LABCLIA [id number] [place] [address] [place] Laboratory - Chemistry and C hemistry - challengeon 09-06-2024 IgA [Mass/Vol] 163 mg/dL 70 - 400 mg/dL [facility] IgG [Mass/Vol] 599 mg/dL Low 700 - 1600 mg/dL [facility] IgM [Mass/Vol] 387 mg/dL High 40 - 230 mg/dL [facility] No Panel Informationon 09-06 Interpretation and review of laboratory results Abnormal [facility] CBC W Auto Differential pane l (Bld)on 08-29-2024 Basophils (Bld) [#/Vol] 0.06 10*3/uL Normal <0.11 [facility] Comment on above: Order Comment: Speci men Type: BLOOD SPECIMENOrdering Facility: [facility] Address: [address] [place] [address] Performed By: #### 5 7021-8 ####[facility] LABCLIA [id number] [place] [address] Basophils/100 WBC (Bld) 0.5 % Normal [facility] Comment on above: Order Comment: Speci men Type: BLOOD SPECIMENOrdering Facility: [facility] Address: [address] [place] [address] Performed By: #### 5 7021-8 ####[facility] LABCLIA [id number] [place] [address] Differential cell count method Nom (Bld) Auto Normal [facility] Comment on above: Order Comment: Speci men Type: BLOOD SPECIMENOrdering Facility: [facility] Address: [address] [place] [address] Performed By: #### 5 7021-8 ####[facility] LABCLIA [id number] [place] [address] Eosinophils (Bld) [#/Vol] 0.08 10*3/uL Normal <0.46 [facility] Comment on above: Order Comment: Speci men Type: BLOOD SPECIMENOrdering Facility: [facility] Address: [address] [place] [address] Performed By: #### 5 7021-8 ####[facility] LABCLIA [id number] [place] [address] Eosinophils/100 WBC (Bld) 0.6 % Normal [facility] Comment on above: Order Comment: Speci men Type: BLOOD SPECIMENOrdering Facility: [facility] Address: [address] [place] [address] Performed By: #### 5 7021-8 ####[facility] LABIA [id number] [place] [address] Erythrocyte distribution width (RBC) [Ratio] 16.0 % High 11.5-15.0 [facility] Comment on above: Order Comment: Speci men Type: BLOOD SPECIMENOrdering Facility: [facility] Address: [address] [place] [address] Performed By: #### 5 7021-8 ####[facility] LABCLIA [id number] [place] [address] Hematocrit (Bld) [Volume fraction] 42.9 % Normal 36.0-46.0 [facility] Comment on above: Order Comment: Speci men Type: BLOOD SPECIMENOrdering Facility: [facility] Address: [address] [place] [address] Performed By: #### 5 7021-8 ####[facility] LABCLIA [id number] [place] [address] Hemoglobin (Bld) [Mass/Vol] 13.8 g/dL Normal 11.5-15.5 [facility] Comment on above: Order Comment: Speci men Type: BLOOD SPECIMENOrdering Facility: [facility] Address: [address] [place] [address] Performed By: #### 5 7021-8 ####[facility] LABCLIA [id number] [place] [address] Immature granulocytes (Bld) [#/Vol] 0.23 10*3/uL High <0.10 [facility] Comment on above: Order Comment: Speci men Type: BLOOD SPECIMENOrdering Facility: [facility] Address: [address] [place] [address] Performed By: #### 5 7021-8 ####[facility] LABCLIA [id number] [place] [address] Immature granulocytes/100 WBC (Bld) 1.8 % Normal [facility] Comment on above: Order Comment: Speci men Type: BLOOD SPECIMENOrdering Facility: [facility] Address: [address] [place] [address] Performed By: #### 5 7021-8 ####[facility] LABCLIA [id number] [place] [address] Lymphocytes (Bld) [#/Vol] 2.07 10*3/uL Normal 1.00-4.00 [facility] Comment on above: Order Comment: Speci men Type: BLOOD SPECIMENOrdering Facility: [facility] Address: [address] [place] [address] Performed By: #### 5 7021-8 ####[facility] LABCLIA [id number] [place] [address] Lymphocytes/100 WBC (Bld) 15.8 % Normal [facility] Comment on above: Order Comment: Speci men Type: BLOOD SPECIMENOrdering Facility: [facility] Address: [address] [place] [address] Performed By: #### 5 7021-8 ####[facility] LABCLIA [id number] [place] [address] MCH (RBC) [Entitic mass] 30.2 pg Normal 26.0-34.0 [facility] Comment on above: Order Comment: Speci men Type: BLOOD SPECIMENOrdering Facility: [facility] Address: [address] [place] [address] Performed By: #### 5 7021-8 ####[facility] LABCLIA [id number] [place] [address] MCHC (RBC) [Mass/Vol] 32.2 g/dL Normal 30.5-36.0 [facility] Comment on above: Order Comment: Speci men Type: BLOOD SPECIMENOrdering Facility: [facility] Address: [address] [place] [address] Performed By: #### 5 7021-8 ####[facility] LABCLIA [id number] [place] [address] MCV (RBC) [Entitic vol] 93.9 fL Normal 80.0-100.0 [facility] Comment on above: Order Comment: Speci men Type: BLOOD SPECIMENOrdering Facility: [facility] Address: [address] [place] [address] Performed By: #### 5 7021-8 ####[facility] LABCLIA [id number] [place] [address] Monocytes (Bld) [#/Vol] 0.86 10*3/uL Normal <0.87 [facility] Comment on above: Order Comment: Speci men Type: BLOOD SPECIMENOrdering Facility: [facility] Address: [address] [place] [address] Performed By: #### 5 7021-8 ####[facility] LABCLIA [id number] [place] [address] Monocytes/100 WBC (Bld) 6.6 % Normal [facility] Comment on above: Order Comment: Speci men Type: BLOOD SPECIMENOrdering Facility: [facility] Address: [address] [place] [address] Performed By: #### 5 7021-8 ####[facility] LABCLIA [id number] [place] [address] Neutrophils (Bld) [#/Vol] 9.82 10*3/uL High 1.45-7.50 [facility] Comment on above: Order Comment: Speci men Type: BLOOD SPECIMENOrdering Facility: [facility] Address: [address] [place] [address] Performed By: #### 5 7021-8 ####[facility] LABCLIA [id number] [place] [address] Neutrophils/100 WBC (Bld) 74.7 % Normal [facility] Comment on above: Order Comment: Speci men Type: BLOOD SPECIMENOrdering Facility: [facility] Address: [address] [place] [address] Performed By: #### 5 7021-8 ####[facility] LABIA [id number] [place] [address] Nucleated RBC (Bld) [#/Vol] 10*3/uL Normal <0.01 [facility] Comment on above: Order Comment: Speci men Type: BLOOD SPECIMENOrdering Facility: [facility] Address: [address] [place] [address] Performed By: #### 5 7021-8 ####[facility] LABCLIA [id number] [place] [address] Nucleated RBC/100 WBC (Bld) [Ratio] 0.0 /100 WBC Normal [facility] Comment on above: Order Comment: Speci men Type: BLOOD SPECIMENOrdering Facility: [facility] Address: [address] [place] [address] Performed By: #### 5 7021-8 ####[facility] LABCLIA [id number] [place] [address] Platelet mean volume (Bld) [Entitic vol] 9.5 fL Normal 9.0-12.7 [facility] Comment on above: Order Comment: Speci men Type: BLOOD SPECIMENOrdering Facility: [facility] Address: [address] [place] [address] Performed By: #### 5 7021-8 ####[facility] LABCLIA [id number] [place] [address] Platelets (Bld) [#/Vol] 291 10*3/uL Normal 150-400 [facility] Comment on above: Order Comment: Speci men Type: BLOOD SPECIMENOrdering Facility: [facility] Address: [address] [place] [address] Performed By: #### 5 7021-8 ####[facility] LABCLIA [id number] [place] [address] RBC (Bld) [#/Vol] 4.57 10*6/uL Normal 3.90-5.20 [facility] Comment on above: Order Comment: Speci men Type: BLOOD SPECIMENOrdering Facility: [facility] Address: [address] [place] [address] Performed By: #### 5 7021-8 ####[facility] LABCLIA [id number] [place] [address] WBC (Bld) [#/Vol] 13.12 10*3/uL High 3.70-11.00 [facility] Comment on above: Order Comment: Speci men Type: BLOOD SPECIMENOrdering Facility: [facility] Address: [address] [place] [address] Performed By: #### 5 7021-8 ####[facility] LABCLIA [id number] [place] [address] Comprehensive metabolic 2000 panelon 08-29-2024 Albumin [Mass/Vol] 4.2 g/dL Normal 3.9-4.9 [facility] Comment on above: Order Comment: Speci men Type: BLOOD SPECIMENOrdering Facility: [facility] Address: [address] [place] [address] Performed By: #### 2 4323-8 ####[facility] LABCLIA [id number] [place] [address] ALP [Catalytic activity/Vol] 69 U/L Normal 34-123 [facility] Comment on above: Order Comment: Speci men Type: BLOOD SPECIMENOrdering Facility: [facility] Address: [address] [place] [address] Performed By: #### 2 4323-8 ####[facility] LABCLIA [id number] [place] [address] ALT [Catalytic activity/Vol] 38 U/L Normal 7-38 [facility] Comment on above: Order Comment: Speci men Type: BLOOD SPECIMENOrdering Facility: [facility] Address: [address] [place] [address] Performed By: #### 2 4323-8 ####[facility] LABCLIA [id number] [place] [address] Anion gap [Moles/Vol] 12 mmol/L Normal 8-15 [facility] Comment on above: Order Comment: Speci men Type: BLOOD SPECIMENOrdering Facility: [facility] Address: [address] [place] [address] Performed By: #### 2 4323-8 ####[facility] LABCLIA [id number] [place] [address] AST [Catalytic activity/Vol] 15 U/L Normal 13-35 [facility] Comment on above: Order Comment: Speci men Type: BLOOD SPECIMENOrdering Facility: [facility] Address: [address] [place] [address] Performed By: #### 2 4323-8 ####[facility] LABCLIA [id number] [place] [address] Bilirubin [Mass/Vol] 0.2 mg/dL Normal 0.2-1.3 [facility] Comment on above: Order Comment: Speci men Type: BLOOD SPECIMENOrdering Facility: [facility] Address: [address] [place] [address] Performed By: #### 2 4323-8 ####[facility] LABCLIA [id number] [place] [address] Calcium [Mass/Vol] 10.3 mg/dL High 8.5-10.2 [facility] Comment on above: Order Comment: Speci men Type: BLOOD SPECIMENOrdering Facility: [facility] Address: [address] [place] [address] Performed By: #### 2 4323-8 ####[facility] LABCLIA [id number] [place] [address] Chloride [Moles/Vol] 101 mmol/L Normal 98-107 [facility] Comment on above: Order Comment: Speci men Type: BLOOD SPECIMENOrdering Facility: [facility] Address: [address] [place] [address] Performed By: #### 2 4323-8 ####[facility] LABCLIA [id number] [place] [address] CO2 [Moles/Vol] 26 mmol/L Normal 22-30 [facility] Comment on above: Order Comment: Speci men Type: BLOOD SPECIMENOrdering Facility: [facility] Address: [address] [place] [address] Performed By: #### 2 4323-8 ####[facility] LABCLIA [id number] [place] [address] Creatinine [Mass/Vol] 0.64 mg/dL Normal 0.58-0.96 [facility] Comment on above: Order Comment: Speci men Type: BLOOD SPECIMENOrdering Facility: [facility] Address: [address] [place] [address] Performed By: #### 2 4323-8 ####[facility] LABCLIA [id number] [place] [address] Creatinine and Glomerular filtration rate.predicted panel (S/P/Bld) 113 mL/min/1.73m??? Normal >=60 [facility] Comment on above: Order Comment: Speci men Type: BLOOD SPECIMENOrdering Facility: [facility] Address: [address] [place] [address] Result Comment: Erin mated Glomerular Filtration Rate [...] actual GFR. Performed By: #### 2 4323-8 ####[facility] LABCLIA [id number] [place] [address] Glucose [Mass/Vol] 139 mg/dL High 74-99 [facility] Comment on above: Order Comment: Speci men Type: BLOOD SPECIMENOrdering Facility: [facility] Address: [address] [place] [address] Result Comment: The [place] Diabetes Association (ADA) provides guidance for cutoff [...] Standards of Medical Care in Diabetes 2016, [place] Diabetes Association. Diabetes Care. 2016.39(Suppl 1). Performed By: #### 2 4323-8 ####[facility] LABCLIA [id number] [place] [address] Potassium [Moles/Vol] 4.4 mmol/L Normal 3.7-5.1 [facility] Comment on above: Order Comment: Speci men Type: BLOOD SPECIMENOrdering Facility: [facility] Address: [address] [place] [address] Performed By: #### 2 4323-8 ####[facility] LABCLIA [id number] [place] [address] Protein [Mass/Vol] 7.1 g/dL Normal 6.3-8.0 [facility] Comment on above: Order Comment: Speci men Type: BLOOD SPECIMENOrdering Facility: [facility] Address: [address] [place] [address] Performed By: #### 2 4323-8 ####[facility] LABCLIA [id number] [place] [address] Sodium [Moles/Vol] 139 mmol/L Normal 136-144 [facility] Comment on above: Order Comment: Speci men Type: BLOOD SPECIMENOrdering Facility: [facility] Address: [address] [place] [address] Performed By: #### 2 4323-8 ####[facility] LABCLIA [id number] [place] [address] Urea nitrogen [Mass/Vol] 18 mg/dL Normal 7-21 [facility] Comment on above: Order Comment: Speci men Type: BLOOD SPECIMENOrdering Facility: [facility] Address: [address] [place] [address] Performed By: #### 2 4323-8 ####[facility] LABCLIA [id number] [place] [address] Ferritin SerPl-mCncon 2024 Ferritin [Mass/Vol] 43.1 ng/mL Normal 14.7-205.1 [facility] Comment on above: Order Comment: Speci men Type: BLOOD SPECIMENOrdering Facility: [facility] Address: [address] [place] [address] Performed By: #### 2 132-9, 2284-8, 2276-4, 68794-6 ####[facility] LABCLIA [id number] [place] [id number] [place] Folate SerPl-mCncon 08-30-19 25 Folate [Mass/Vol] ng/mL Normal >4.7 [facility] Comment on above: Order Comment: Speci men Type: BLOOD SPECIMENOrdering Facility: [facility] Address: [address] [place] [address] Result Comment: A re sult of > 20 ng/mL is not necessarily indicative of a pathologic or treatable condition: it reflects a limitation of the test methodology.Assay reference range: 4.8 to 24.2 ng/mL. Suitable for detection of folate deficiency.Reference:Folate III (Folate III) [package insert V 1.0 [place]]. [facility], [place], [place]: March 2015. Performed By: #### 2 132-9, 2284-8, 2276-4, 58650-3 ####[facility] LABCLIA [id number] [place] [id number] [place] IgG SerPl-mCncon 08-29-2024 IgG [Mass/Vol] 729 mg/dL Normal 700-1600 [facility] Comment on above: Order Comment: Speci men Type: BLOOD SPECIMENOrdering Facility: [facility] Address: [address] [place], [place] [address] Performed By: #### 2 465-3 ####[facility] LABIA [id number] [place] [address] [place] Iron and Iron binding capaci ty panelon 08-29-2024 Iron [Mass/Vol] 80 ug/dL Normal 41-186 [facility] Comment on above: Order Comment: Speci men Type: BLOOD SPECIMENOrdering Facility: [facility] Address: [address] [place] [address] Performed By: #### 2 132-9, 2284-8, 2276-4, 56920-2 ####[facility] [id number] [address] [place] [facility] Iron binding capacity [Mass/Vol] 416 ug/dL High 232-386 [facility] Comment on above: Order Comment: Speci men Type: BLOOD SPECIMENOrdering Facility: [facility] Address: [address] [place] [address] Performed By: #### 2 132-9, 2284-8, 2276-4, 00016-3 ####[facility] [id number] [place] [id number] [place] Iron/TIBC [Molar ratio] 19.2 % Normal 15.0-57.0 [facility] Comment on above: Order Comment: Speci men Type: BLOOD SPECIMENOrdering Facility: [facility] Address: [address] [place] [address] Performed By: #### 2 132-9, 2284-8, 2276-4, 55024-0 ####[facility] [id number] [place] [address] [place] Vit B12 SerPl-mCncon 025 Cobalamin (Vitamin B12) [Mass/Vol] 555 pg/mL Normal 232-1245 [facility] Comment on above: Order Comment: Speci men Type: BLOOD SPECIMENOrdering Facility: [facility] Address: [address] [place] [address] Performed By: #### 2 132-9, 2284-8, 2276-4, 90100-2 ####[facility] LABCLIA [id number] [facility] [place] [address] [place] CNPNon 08-28-2024 CNPN Normal [facility] [place] [address] Ultrasound Report Signed Patient: ARIADNA HALEY MR#: [id number] : 1980 Acct:[id number] Age/Sex: 43 / F ADM Date: 08/24/24 Loc: US Attending Dr: Gordo Barfield M.D. Ordering Physician: Gordo Barfield M.D. Date of Service: 08/24/24 Procedure(s): US thyroid Accession Number(s): [id number] cc: GAY ENCISO ; Gordo Barfield M.D. [place] [id number] Patient Name: ARIADNA HALEY MRN: [id number] date: 1980 Sex: F Assigned Patient Location: US Current Patient Location: US Accession/Order Number: [id number] Exam Date: 08/24/2024 09:09 Report Date: 08/24/2024 [...] this was thought to be cystic. The independent living advisor today considered it solid and it was given TI-RADS 4 classification. No internal color flow is shown. Size has not significantly changed when measuring in a comparable manner. No other nodularity is seen. US/US thyroid IMPRESSION: SIMILAR SMALL LEFT THYROID NODULE. FOLLOW-UP IN ONE YEAR IS SUGGESTED. Impression dictated by: Simin Nelson M.D.08/24/2024 9:22 AM Dictation Location: [place] [address] Electronically authenticated by: [id number] Y Date: 08/24/2024 09:22 Dictated By: Simin Nelson M.D. Signed By: 08/24/24923 DD/ 1 TD/TT: Submarine Advisory Team Watch Officer: [facility] Radiology, Radiologist, MD - 08/24/2024 [place] [address] Ultrasound Report Signed Patient: ARIADNA HALEY MR#: [id number] : 1980 Acct:[id number] Age/Sex: 43 / F ADM Date: 08/24/24 Loc: US Attending Dr: Gordo Barfield M.D. Ordering Physician: Gordo Barfield M.D. Date of Service: 08/24/24 Procedure(s): US thyroid Accession Number(s): [id number] cc: GAY ENCISO ; Gordo Barfield M.D. [place] [address] Patient Name: ARIADNA HALEY MRN: [facility]:[id number] date: 1980 Sex: F Assigned Patient Location: US Current Patient Location: US Accession/Order Number: [id number] Exam Date: 08/24/2024 09:09 Report Date: 08/24/2024 09:22 At the request of: GODRO BARFIELD MD Procedure: US thyroid THYROID ULTRASOUND [...] this was thought to be cystic. The independent living advisor today considered it solid and it was given TI-RADS 4 classification. No internal color flow is shown. Size has not significantly changed when measuring in a comparable manner. No other nodularity is seen. US/US thyroid IMPRESSION: SIMILAR SMALL LEFT THYROID NODULE. FOLLOW-UP IN ONE YEAR IS SUGGESTED. Impression dictated by: Simin Nelson M.D.08/24/2024 9:22 AM Dictation Location: [place] [address] Electronically authenticated by: [id number] Y Date: 08/24/2024 09:22 Dictated By: Simin Nelson M.D. Signed By: 08/24/24923 DD/ 1 TD/TT: Submarine Advisory Team Watch Officer: [facility] Radiology Study observation (narrative) [facility] US Thyroid glandOrdered By: Radiologist Radiology on 08-24-2024 [facility] Work Phone: CNPNon 08-08-2024 CNPN Normal [facility] HCG ( test) Marcelo hays Ql (U)Ordered By: Adolfo Kang on 07-19-2024 HCG ( test) Ql (U) Urine human chorionic gonadotropin (hCG) detection by immunoassay [facility] HCG,Urineon 07-19-2024 Beta HCG ( test) Ql (U) Negative Normal [facility] Comment on above: Result Comment: PERF ORMED BY: [place] [address] PATHOLOGIST [employer] DEVELOPMENT MANAGER HAYDEN LLAMAS M.D. Performed By: #### U HCG #### [address] CNOVon 07-12-2024 CNOV Normal [facility] CNPNon 07-09-2024 CNPN Normal [facility] 25(OH)D3 SerPl-mCncon 2024 25-hydroxyvitamin D3 [Mass/Vol] 28.5 ng/mL Low 31.0-80.0 [facility] Comment on above: Order Comment: Speci men Type: BLOOD SPECIMENOrdering Facility: [facility] Address: [address] [place] [address] Result Comment: Clas sification of 25 [place] Vitamin D status:Deficiency/Insufficiency: < or = 30 ng/ml.Sufficiency/Optimal Levels: 31-80 ng/mLToxicity: > 100 ng/mL.Test performed by chemiluminescent immunoassay. Performed By: #### 1 989-3 ####[facility] LABCLIA [id number] [facility] [id number] [address] [place] CBC panel Auto (Bld)on 06-30 Erythrocyte distribution width (RBC) [Ratio] 14.3 % Normal 11.5-15.0 [facility] Comment on above: Order Comment: Speci men Type: BLOOD SPECIMENOrdering Facility: [facility] Address: [address] [place] [address] Performed By: #### 5 8410-2 ####[facility] LABIA [id number] [place] [id number] [place] Hematocrit (Bld) [Volume fraction] 41.3 % Normal 36.0-46.0 [facility] Comment on above: Order Comment: Speci men Type: BLOOD SPECIMENOrdering Facility: [facility] Address: [address] [place] [address] Performed By: #### 5 8410-2 ####[facility] LABIA [id number] [place] [id number] [place] Hemoglobin (Bld) [Mass/Vol] 13.5 g/dL Normal 11.5-15.5 [facility] Comment on above: Order Comment: Speci men Type: BLOOD SPECIMENOrdering Facility: [facility] Address: [address] [place] [address] Performed By: #### 5 8410-2 ####[facility] LABIA [id number] [place] [id number] [place] MCH (RBC) [Entitic mass] 30.4 pg Normal 26.0-34.0 [facility] Comment on above: Order Comment: Speci men Type: BLOOD SPECIMENOrdering Facility: [facility] Address: [address] [place] [address] Performed By: #### 5 8410-2 ####[facility] LABIA [id number] [place] [id number] [place] MCHC (RBC) [Mass/Vol] 32.7 g/dL Normal 30.5-36.0 [facility] Comment on above: Order Comment: Speci men Type: BLOOD SPECIMENOrdering Facility: [facility] Address: [address] [place] [address] Performed By: #### 5 8410-2 ####[facility] LABIA [id number] [place] [id number] [place] MCV (RBC) [Entitic vol] 93.0 fL Normal 80.0-100.0 [facility] Comment on above: Order Comment: Speci men Type: BLOOD SPECIMENOrdering Facility: [facility] Address: [address] [place] [address] Performed By: #### 5 8410-2 ####[facility] LABIA [id number] [place] [id number] [place] Nucleated RBC (Bld) [#/Vol] 10*3/uL Normal <0.01 [facility] Comment on above: Order Comment: Speci men Type: BLOOD SPECIMENOrdering Facility: [facility] Address: [address] [place] [address] Performed By: #### 5 8410-2 ####[facility] LABIA [id number] [place] [id number] [place] [facility] Platelet mean volume (Bld) [Entitic vol] 9.8 fL Normal 9.0-12.7 [facility] Comment on above: Order Comment: Speci men Type: BLOOD SPECIMENOrdering Facility: [facility] Address: [address] [place] [address] Performed By: #### 5 8410-2 ####[facility] LABCLIA [id number] [place] [address] [place] Platelets (Bld) [#/Vol] 341 10*3/uL Normal 150-400 [facility] Comment on above: Order Comment: Speci men Type: BLOOD SPECIMENOrdering Facility: [facility] Address: [address] [place] [address] Performed By: #### 5 8410-2 ####[facility] LABIA [id number] [place] [address] [place] RBC (Bld) [#/Vol] 4.44 10*6/uL Normal 3.90-5.20 [facility] Comment on above: Order Comment: Speci men Type: BLOOD SPECIMENOrdering Facility: [facility] Address: [address] [place] [address] Performed By: #### 5 8410-2 ####[facility] LABIA [id number] [place] [address] [place] WBC (Bld) [#/Vol] 12.66 10*3/uL High 3.70-11.00 [facility] Comment on above: Order Comment: Speci men Type: BLOOD SPECIMENOrdering Facility: [facility] Address: [address] [place] [address] Performed By: #### 5 8410-2 ####[facility] LABIA [id number] [place] [address] [place] CRP SerPl-mCncon 06-30-2024 CRP [Mass/Vol] 0.1 mg/dL Normal <0.9 [facility] Comment on above: Order Comment: Speci men Type: BLOOD SPECIMENOrdering Facility: [facility] Address: [address] [place] [address] Performed By: #### 1 988-5, 04950-2 ####[facility] LABIA [id number] [place] [address] [place] Comprehensive metabolic 2000 panelon 06-30-2024 Albumin [Mass/Vol] 4.0 g/dL Normal 3.9-4.9 [facility] Comment on above: Order Comment: Speci men Type: BLOOD SPECIMENOrdering Facility: [facility] Address: [address] [place] [address] Performed By: #### 1 988-5, 71857-8 ####[facility] LABCLIA [id number] [place] [address] [place] ALP [Catalytic activity/Vol] 52 U/L Normal 34-123 [facility] Comment on above: Order Comment: Speci men Type: BLOOD SPECIMENOrdering Facility: [facility] Address: [address] [place] [address] Performed By: #### 1 988-5, 36945-1 ####[facility] LABCLIA [id number] [place] [address] [place] ALT [Catalytic activity/Vol] 26 U/L Normal 7-38 [facility] Comment on above: Order Comment: Speci men Type: BLOOD SPECIMENOrdering Facility: [facility] Address: [address] [place] [address] Performed By: #### 1 988-5, 57428-2 ####[facility] LABCLIA [id number] [place] [address] [place] Anion gap [Moles/Vol] 10 mmol/L Normal 8-15 [facility] Comment on above: Order Comment: Speci men Type: BLOOD SPECIMENOrdering Facility: [facility] Address: [address] [place] [address] Performed By: #### 1 988-5, 68344-2 ####[facility] LABCLIA [id number] [place] [address] [place] AST [Catalytic activity/Vol] 12 U/L Low 13-35 [facility] Comment on above: Order Comment: Speci men Type: BLOOD SPECIMENOrdering Facility: [facility] Address: [address] [place] [address] Performed By: #### 1 988-5, 24080-4 ####[facility] LABCLIA [id number] [place] [address] [place] Bilirubin [Mass/Vol] 0.3 mg/dL Normal 0.2-1.3 [facility] Comment on above: Order Comment: Speci men Type: BLOOD SPECIMENOrdering Facility: [facility] Address: [address] [place], [place] [address] Performed By: #### 1 988-5, 92755-0 ####[facility] LABIA [id number] [place] [address] [place] Calcium [Mass/Vol] 9.5 mg/dL Normal 8.5-10.2 [facility] Comment on above: Order Comment: Speci men Type: BLOOD SPECIMENOrdering Facility: [facility] Address: [address] [place] [address] Performed By: #### 1 988-5, 68405-4 ####[facility] LABCLIA [id number] [place] [id number] [place] Chloride [Moles/Vol] 103 mmol/L Normal 98-107 [facility] Comment on above: Order Comment: Speci men Type: BLOOD SPECIMENOrdering Facility: [facility] Address: [address] [place] [address] Performed By: #### 1 988-5, 55311-0 ####[facility] LABCLIA [id number] [place] [address] [place] CO2 [Moles/Vol] 27 mmol/L Normal 22-30 [facility] Comment on above: Order Comment: Speci men Type: BLOOD SPECIMENOrdering Facility: [facility] Address: [address] [place], [place] [address] Performed By: #### 1 988-5, 85961-7 ####[facility] LABCLIA [id number] [place] [address] [place] Creatinine [Mass/Vol] 0.78 mg/dL Normal 0.58-0.96 [facility] Comment on above: Order Comment: Semaj cortés Type: BLOOD SPECIMENOrdering Facility: [facility] Address: [address] [place] [address] Performed By: #### 1 988-5, 42273-5 ####[facility] LABCLIA [id number] [place] [id number] [place] [facility] [place] Creatinine and Glomerular filtration rate.predicted panel (S/P/Bld) 97 mL/min/1.73m??? Normal >=60 [facility] Comment on above: Order Comment: Semaj cortés Type: BLOOD SPECIMENOrdering Facility: [facility] Address: [address] [place] [address] Result Comment: Erin mated Glomerular Filtration Rate [...] actual GFR. Performed By: #### 1 988-5, 02626-6 ####[facility] LABCLIA [id number] [place] [id number] [place] Glucose [Mass/Vol] 116 mg/dL High 74-99 [facility] Comment on above: Order Comment: Semaj cortés Type: BLOOD SPECIMENOrdering Facility: [facility] Address: [address] [place] [address] Result Comment: The [place] Diabetes Association (ADA) provides guidance for cutoff [...] Standards of Medical Care in Diabetes 2016, [place]. Diabetes Care. 2016.39(Suppl 1). Performed By: #### 1 988-5, 01065-0 ####[facility] LABCLIA [id number] [place] [address] [place] Potassium [Moles/Vol] 3.8 mmol/L Normal 3.7-5.1 [facility] Comment on above: Order Comment: Speci men Type: BLOOD SPECIMENOrdering Facility: [facility] Address: [address] [place] [address] Performed By: #### 1 988-5, 10170-2 ####[facility]ITAL[facility] LABIA [id number] [place] [address] [place] Protein [Mass/Vol] 7.6 g/dL Normal 6.3-8.0 [facility] Comment on above: Order Comment: Speci men Type: BLOOD SPECIMENOrdering Facility: [facility] Address: [address] [place] [address] Performed By: #### 1 988-5, 40425-6 ####[facility]ITAL[facility] LABIA [id number] [place] [address] [place] Sodium [Moles/Vol] 140 mmol/L Normal 136-144 [facility] Comment on above: Order Comment: Speci men Type: BLOOD SPECIMENOrdering Facility: [facility] Address: [address] [place] [address] Performed By: #### 1 988-5, 15016-7 ####[facility] LABIA [id number] [place] [address] [place] Urea nitrogen [Mass/Vol] 18 mg/dL Normal 7-21 [facility] Comment on above: Order Comment: Speci men Type: BLOOD SPECIMENOrdering Facility: [facility] Address: [address] [place] [address] Performed By: #### 1 988-5, 42510-8 ####[facility] LABCLIA [id number] [place] [address] [place] ESR Westergren method (Bld) [Velocity]on 06-30-2024 ESR (Bld) [Velocity] 28 mm/h High 0-20 [facility] Comment on above: Order Comment: Speci men Type: BLOOD SPECIMENOrdering Facility: [facility] Address: [address] [place] [address] Performed By: #### 4 537-7 ####[facility] LABCLIA [id number] [place] [address] [place] CNPNon 06-16-2024 CNPN Normal [facility] ALLIED HEALTHon 06-13-2024 ALLIED HEALTH Normal [facility] CBC W Auto Differential pane l (Bld)on 06-13-2024 Basophils (Bld) [#/Vol] 0.10 10*3/uL [facility] Basophils/100 WBC (Bld) 0.7 % [facility] Differential cell count method Nom (Bld) Auto [facility] Eosinophils (Bld) [#/Vol] 0.15 10*3/uL [facility] Eosinophils/100 WBC (Bld) 1.1 % [facility] Erythrocyte distribution width (RBC) [Ratio] 14.2 % 11.5 - 15.0 % [facility] [facility] Hematocrit (Bld) [Volume fraction] 39.0 % 36.0 - 46.0 % [facility] Hemoglobin (Bld) [Mass/Vol] 13.0 g/dL 11.5 - 15.5 g/dL [facility] Immature granulocytes (Bld) [#/Vol] 0.21 10*3/uL High [facility] Immature granulocytes/100 WBC (Bld) 1.5 % [facility] Interpretation and review of laboratory results Abnormal [facility] Lymphocytes (Bld) [#/Vol] 2.16 10*3/uL [facility] Lymphocytes/100 WBC (Bld) 15.4 % [facility] MCH (RBC) [Entitic mass] 30.5 pg 26.0 - 34.0 pg [facility] MCHC (RBC) [Mass/Vol] 33.3 g/dL 30.5 - 36.0 g/dL [facility] MCV (RBC) [Entitic vol] 91.5 fL 80.0 - 100.0 fL [facility] Monocytes (Bld) [#/Vol] 0.79 10*3/uL [facility] Monocytes/100 WBC (Bld) 5.6 % [facility] Neutrophils (Bld) [#/Vol] 10.59 10*3/uL High [facility] Neutrophils/100 WBC (Bld) 75.7 % [facility] Nucleated RBC (Bld) [#/Vol] NINF [facility] Nucleated RBC/100 WBC (Bld) [Ratio] 0.0 % /100 WBC [facility] Platelet mean volume (Bld) [Entitic vol] 9.9 fL 9.0 - 12.7 fL [facility] Platelets (Bld) [#/Vol] 327 10*3/uL [facility] RBC (Bld) [#/Vol] 4.26 10*6/uL 3.90 - 5.2 0 m/uL [facility] WBC (Bld) [#/Vol] 14.00 10*3/uL High [facility] Basophils (Bld) [#/Vol] 0.10 10*3/uL Normal <0.11 [facility] Comment on above: Order Comment: Speci men Type: BLOOD SPECIMENOrdering Facility: [facility] Address: [address] [place] [address] Performed By: #### 5 7021-8 ####[facility] LABCLIA [id number] [place] [address] Basophils/100 WBC (Bld) 0.7 % Normal [facility] Comment on above: Order Comment: Speci men Type: BLOOD SPECIMENOrdering Facility: [facility] Address: [address] [place] [address] Performed By: #### 5 7021-8 ####[facility] LABCLIA [id number] [place] [address] Differential cell count method Nom (Bld) Auto Normal [facility] Comment on above: Order Comment: Speci men Type: BLOOD SPECIMENOrdering Facility: [facility] Address: [address] [place] [address] Performed By: #### 5 7021-8 ####[facility] LABCLIA [id number] [place] [address] Eosinophils (Bld) [#/Vol] 0.15 10*3/uL Normal <0.46 [facility] Comment on above: Order Comment: Speci men Type: BLOOD SPECIMENOrdering Facility: [facility] Address: [address] [place] [address] Performed By: #### 5 7021-8 ####[facility] LABCLIA [id number] [place] [address] Eosinophils/100 WBC (Bld) 1.1 % Normal [facility] Comment on above: Order Comment: Speci men Type: BLOOD SPECIMENOrdering Facility: [facility] Address: [address] [place] [address] Performed By: #### 5 7021-8 ####[facility] LABCLIA [id number] [place] [address] Erythrocyte distribution width (RBC) [Ratio] 14.2 % Normal 11.5-15.0 [facility] Comment on above: Order Comment: Speci men Type: BLOOD SPECIMENOrdering Facility: [facility] Address: [address] [place] [address] Performed By: #### 5 7021-8 ####[facility] LABCLIA [id number] [place] [address] Hematocrit (Bld) [Volume fraction] 39.0 % Normal 36.0-46.0 [facility] Comment on above: Order Comment: Speci men Type: BLOOD SPECIMENOrdering Facility: [facility] Address: [address] [place] [address] Performed By: #### 5 7021-8 ####[facility] LABCLIA [id number] [place] [address] Hemoglobin (Bld) [Mass/Vol] 13.0 g/dL Normal 11.5-15.5 [facility] Comment on above: Order Comment: Speci men Type: BLOOD SPECIMENOrdering Facility: [facility] Address: [address] [place] [address] Performed By: #### 5 7021-8 ####[facility] LABCLIA [id number] [place] [address] Immature granulocytes (Bld) [#/Vol] 0.21 10*3/uL High <0.10 [facility] Comment on above: Order Comment: Speci men Type: BLOOD SPECIMENOrdering Facility: [facility] Address: [address] [place] [address] Performed By: #### 5 7021-8 ####[facility] LABCLIA [id number] [place] [address] Immature granulocytes/100 WBC (Bld) 1.5 % Normal [facility] Comment on above: Order Comment: Speci men Type: BLOOD SPECIMENOrdering Facility: [facility] Address: [address] [place] [address] Performed By: #### 5 7021-8 ####[facility] LABCLIA [id number] [place] [address] Lymphocytes (Bld) [#/Vol] 2.16 10*3/uL Normal 1.00-4.00 [facility] Comment on above: Order Comment: Speci men Type: BLOOD SPECIMENOrdering Facility: [facility] Address: [address] [place] [address] Performed By: #### 5 7021-8 ####[facility] LABCLIA [id number] [place] [address] Lymphocytes/100 WBC (Bld) 15.4 % Normal [facility] Comment on above: Order Comment: Speci men Type: BLOOD SPECIMENOrdering Facility: [facility] Address: [address] [place] [address] Performed By: #### 5 7021-8 ####[facility] LABCLIA [id number] [place] [address] MCH (RBC) [Entitic mass] 30.5 pg Normal 26.0-34.0 [facility] Comment on above: Order Comment: Speci men Type: BLOOD SPECIMENOrdering Facility: [facility] Address: [address] [place] [address] Performed By: #### 5 7021-8 ####[facility] LABIA [id number] [place] [address] MCHC (RBC) [Mass/Vol] 33.3 g/dL Normal 30.5-36.0 [facility] Comment on above: Order Comment: Speci men Type: BLOOD SPECIMENOrdering Facility: [facility] Address: [address] [place] [address] Performed By: #### 5 7021-8 ####[facility] LABIA [id number] [place] [address] MCV (RBC) [Entitic vol] 91.5 fL Normal 80.0-100.0 [facility] Comment on above: Order Comment: Speci men Type: BLOOD SPECIMENOrdering Facility: [facility] Address: [address] [place] [address] Performed By: #### 5 7021-8 ####[facility] LABIA [id number] [place] [address] Monocytes (Bld) [#/Vol] 0.79 10*3/uL Normal <0.87 [facility] Comment on above: Order Comment: Speci men Type: BLOOD SPECIMENOrdering Facility: [facility] Address: [address] [place] [address] Performed By: #### 5 7021-8 ####[facility] LABCLIA [id number] [place] [address] Monocytes/100 WBC (Bld) 5.6 % Normal [facility] Comment on above: Order Comment: Speci men Type: BLOOD SPECIMENOrdering Facility: [facility] Address: [address] [place] [address] Performed By: #### 5 7021-8 ####[facility] LABCLIA [id number] [place] [address] Neutrophils (Bld) [#/Vol] 10.59 10*3/uL High 1.45-7.50 [facility] Comment on above: Order Comment: Speci men Type: BLOOD SPECIMENOrdering Facility: [facility] Address: [address] [place] [address] Performed By: #### 5 7021-8 ####[facility] LABCLIA [id number] [place] [address] Neutrophils/100 WBC (Bld) 75.7 % Normal [facility] Comment on above: Order Comment: Speci men Type: BLOOD SPECIMENOrdering Facility: [facility] Address: [address] [place] [address] Performed By: #### 5 7021-8 ####[facility] LABCLIA [id number] [place] [address] Nucleated RBC (Bld) [#/Vol] 10*3/uL Normal <0.01 [facility] Comment on above: Order Comment: Speci men Type: BLOOD SPECIMENOrdering Facility: [facility] Address: [address] [place] [address] Performed By: #### 5 7021-8 ####[facility] LABCLIA [id number] [place] [address] Nucleated RBC/100 WBC (Bld) [Ratio] 0.0 /100 WBC Normal [facility] Comment on above: Order Comment: Speci men Type: BLOOD SPECIMENOrdering Facility: [facility] Address: [address] [place] [address] Performed By: #### 5 7021-8 ####[facility] LABCLIA [id number] [place] [address] Platelet mean volume (Bld) [Entitic vol] 9.9 fL Normal 9.0-12.7 [facility] Comment on above: Order Comment: Speci men Type: BLOOD SPECIMENOrdering Facility: [facility] Address: [address] [place] [address] Performed By: #### 5 7021-8 ####[facility] LABCLIA [id number] [place] [address] Platelets (Bld) [#/Vol] 327 10*3/uL Normal 150-400 [facility] Comment on above: Order Comment: Speci men Type: BLOOD SPECIMENOrdering Facility: [facility] Address: [address] [place] [address] Performed By: #### 5 7021-8 ####[facility] LABIA [id number] [place] [address] RBC (Bld) [#/Vol] 4.26 10*6/uL Normal 3.90-5.20 [facility] Comment on above: Order Comment: Speci men Type: BLOOD SPECIMENOrdering Facility: [facility] Address: [address] [place] [address] Performed By: #### 5 7021-8 ####[facility] LABCLIA [id number] [place] [address] WBC (Bld) [#/Vol] 14.00 10*3/uL High 3.70-11.00 [facility] Comment on above: Order Comment: Speci men Type: BLOOD SPECIMENOrdering Facility: [facility] Address: [address] [place] [address] Performed By: #### 5 7021-8 ####[facility] LABCLIA [id number] [place] [address] CNOVSPon 06-13-2024 CNOVSP Normal [facility] Comprehensive metabolic 2000 panelOrdered By: Josse Gaurang on 06-13-2024 Albumin [Mass/Vol] 3.9 g/dL 3.9 - 4.9 g/dL [facility] ALP [Catalytic activity/Vol] 73 U/L 34 - 123 U/L [facility] ALT [Catalytic activity/Vol] 24 U/L 7 - 38 U/L [facility] Anion gap [Moles/Vol] 15 mmol/L 8 - 15 mmol/L [facility] AST [Catalytic activity/Vol] 12 U/L Low 13 - 35 U/L [facility] Bilirubin [Mass/Vol] mg/dL Low 0.2 - 1 .3 mg/dL [facility] Calcium [Mass/Vol] 9.2 mg/dL 8.5 - 10. 2 mg/dL [facility] Chloride [Moles/Vol] 104 mmol/L 98 - 10 7 mmol/L [facility] CO2 [Moles/Vol] 19 mmol/L Low 22 - 30 mmol/L [facility] Creatinine [Mass/Vol] 0.58 mg/dL 0.58 - 0.96 mg/dL [facility] GFR/1.73 sq M.predicted among non-blacks MDRD (S/P/Bld) [Vol rate/Area] 115 mL/min/{1.73_m2} - PINF [facility] Comment on above: Estimated Glomerular Filtration [...] [facility] Comment on above: The [place] Diab[employer] s Association (ADA) provides guidance for [...] Standards of Medical Care in Diabetes 2016, [employer]. Diabetes Care. 2016.39(Suppl 1). Interpretation and review of laboratory results Abnormal [facility] Potassium [Moles/Vol] 3.9 mmol/L 3.7 - 5.1 mmol/L [facility] Protein [Mass/Vol] 6.8 g/dL 6.3 - 8.0 g/dL [facility] Sodium [Moles/Vol] 138 mmol/L 136 - 144 mmol/L [facility] Urea nitrogen [Mass/Vol] 13 mg/dL 7 - 21 mg/dL [facility] Comprehensive metabolic 2000 panelon 06-13-2024 Albumin [Mass/Vol] 3.9 g/dL Normal 3.9-4.9 [facility] Comment on above: Order Comment: Speci men Type: BLOOD SPECIMENOrdering Facility: [facility] Address: [address] [place] [address] Performed By: #### 2 4323-8 ####[facility] LABCLIA [id number] [place] [address] ALP [Catalytic activity/Vol] 73 U/L Normal 34-123 [facility] Comment on above: Order Comment: Daniellai moo Type: BLOOD SPECIMENOrdering Facility: [facility] Address: [address] [place] [address] Performed By: #### 2 4323-8 ####[facility] LABCLIA [id number] [place] [address] ALT [Catalytic activity/Vol] 24 U/L Normal 7-38 [facility] Comment on above: Order Comment: Daniellai men Type: BLOOD SPECIMENOrdering Facility: [facility] Address: [address] [place] [address] Performed By: #### 2 4323-8 ####[facility] LABCLIA [id number] [place] [address] Anion gap [Moles/Vol] 15 mmol/L Normal 8-15 [facility] Comment on above: Order Comment: Speci men Type: BLOOD SPECIMENOrdering Facility: [facility] Address: [address] [place] [address] Performed By: #### 2 4323-8 ####[facility] LABCLIA [id number] [place] [address] AST [Catalytic activity/Vol] 12 U/L Low 13-35 [facility] Comment on above: Order Comment: Speci men Type: BLOOD SPECIMENOrdering Facility: [facility] Address: [address] [place] [address] Performed By: #### 2 4323-8 ####[facility] LABCLIA [id number] [place] [address] Bilirubin [Mass/Vol] mg/dL Low 0.2-1.3 [facility] Comment on above: Order Comment: Speci men Type: BLOOD SPECIMENOrdering Facility: [facility] Address: [address] [place] [address] Performed By: #### 2 4323-8 ####[facility] LABCLIA [id number] [place] [address] Calcium [Mass/Vol] 9.2 mg/dL Normal 8.5-10.2 [facility] Comment on above: Order Comment: Speci men Type: BLOOD SPECIMENOrdering Facility: [facility] Address: [address] [place] [address] Performed By: #### 2 4323-8 ####[facility] LABCLIA [id number] [place] [address] Chloride [Moles/Vol] 104 mmol/L Normal 98-107 [facility] Comment on above: Order Comment: Speci men Type: BLOOD SPECIMENOrdering Facility: [facility] Address: [address] [place] [address] Performed By: #### 2 4323-8 ####[facility] LABCLIA [id number] [place] [address] CO2 [Moles/Vol] 19 mmol/L Low 22-30 [facility] Comment on above: Order Comment: Speci men Type: BLOOD SPECIMENOrdering Facility: [facility] Address: [address] [place] [address] Performed By: #### 2 4323-8 ####[facility] LABCLIA [id number] [place] [address] Creatinine [Mass/Vol] 0.58 mg/dL Normal 0.58-0.96 [facility] Comment on above: Order Comment: Speci men Type: BLOOD SPECIMENOrdering Facility: [facility] Address: [address] [place] [address] Performed By: #### 2 4323-8 ####[facility] LABIA [id number] [place] [address] Creatinine and Glomerular filtration rate.predicted panel (S/P/Bld) 115 mL/min/1.73m??? Normal >=60 [facility] Comment on above: Order Comment: Speci men Type: BLOOD SPECIMENOrdering Facility: [facility] Address: [address] [place] [address] Result Comment: Erin mated Glomerular Filtration Rate [...] actual GFR. Performed By: #### 2 4323-8 ####[facility] LABIA [id number] [place] [address] Glucose [Mass/Vol] 163 mg/dL High 74-99 [facility] Comment on above: Order Comment: Speci men Type: BLOOD SPECIMENOrdering Facility: [facility] Address: [address] [place] [address] Result Comment: The [place] Diabetes Association (ADA) provides guidance for cutoff [...] Standards of Medical Care in Diabetes 2016, [employer] Diabetes Association. Diabetes Care. 2016.39(Suppl 1). Performed By: #### 2 4323-8 ####[facility] LABCLIA [id number] [place] [address] Potassium [Moles/Vol] 3.9 mmol/L Normal 3.7-5.1 [facility] Comment on above: Order Comment: Speci men Type: BLOOD SPECIMENOrdering Facility: [facility] Address: [address] [place] [address] Performed By: #### 2 4323-8 ####[facility] LABCLIA [id number] [place] [address] Protein [Mass/Vol] 6.8 g/dL Normal 6.3-8.0 [facility] Comment on above: Order Comment: Speci men Type: BLOOD SPECIMENOrdering Facility: [facility] Address: [address] [place] [address] Performed By: #### 2 4323-8 ####[facility] LABCLIA [id number] [place] [address] Sodium [Moles/Vol] 138 mmol/L Normal 136-144 [facility] Comment on above: Order Comment: Speci men Type: BLOOD SPECIMENOrdering Facility: [facility] Address: [address] [place] [address] Performed By: #### 2 4323-8 ####[facility] LABCLIA [id number] [place] [address] Urea nitrogen [Mass/Vol] 13 mg/dL Normal 7-21 [facility] Comment on above: Order Comment: Speci men Type: BLOOD SPECIMENOrdering Facility: [facility] Address: [address] [place] [address] Performed By: #### 2 4323-8 ####[facility] LABCLIA [id number] [place] [address] ESR Westergren method (Bld) [Velocity]on 06-13-2024 ESR (Bld) [Velocity] 30 mm/h High [facility] Interpretation and review of laboratory results Abnormal [facility] ESR (Bld) [Velocity] 30 mm/h High 0-20 [facility] Comment on above: Order Comment: Speci men Type: BLOOD SPECIMENOrdering Facility: [facility] Address: [address] [place] [address] Performed By: #### 4 537-7 ####[facility] LABCLIA [id number] [place] [id number] [place] FERRITINon 06-13-2024 Ferritin [Mass/Vol] 30.9 ng/mL 14.7 - 2 05.1 ng/mL [facility] FOLATE, SERUMon 06-13-2024 Folate [Mass/Vol] 19.6 ng/mL 4.7 - PINF ng/mL [facility] Ferritin SerPl-mCncon 2024 Ferritin [Mass/Vol] 30.9 ng/mL Normal 14.7-205.1 [facility] Comment on above: Order Comment: Speci men Type: BLOOD SPECIMENOrdering Facility: [facility] Address: [address] [place], [place] [address] [address] Performed By: #### 2 284-8, 2276-4, 57414-3, 2132-9 ####[facility] LABCLIA [id number] [place] [id number] [place] Ferritin [Mass/Vol]on 01-21- 2025 Interpretation and review of laboratory results Normal [facility] Folate SerPl-mCncon 06-13-19 25 Folate [Mass/Vol] 19.6 ng/mL Normal >4.7 [facility] Comment on above: Order Comment: Speci men Type: BLOOD SPECIMENOrdering Facility: [facility] Address: [address] [place] [address] Performed By: #### 2 284-8, 2276-4, 79704-7, 2132-9 ####[facility] LABCLIA [id number] [place] [address] [place] IMMUNOGLOBULINS,IGG,IGA,IGMo n 06-13-2024 IgA [Mass/Vol] 170 mg/dL Normal 70-400 [facility] Comment on above: Order Comment: Speci men Type: BLOOD SPECIMENOrdering Facility: [facility] Address: [address] [place] [address] Performed By: #### S ERIMM ####[facility] LABCLIA [id number] [place] [address] [place] IgG [Mass/Vol] 663 mg/dL Low 700-1600 [facility] Comment on above: Order Comment: Speci men Type: BLOOD SPECIMENOrdering Facility: [facility] Address: [address] [place] [address] Performed By: #### S ERIMM ####[facility] LABCLIA [id number] [place] [address] [place] IgM [Mass/Vol] 376 mg/dL High 40-230 [facility] Comment on above: Order Comment: Speci men Type: BLOOD SPECIMENOrdering Facility: [facility] Address: [address] [place] [address] Performed By: #### S ERIMM ####[facility] LABCLIA [id number] [place] [address] [place] Iron and Iron binding capaci ty panelon 06-13-2024 Iron [Mass/Vol] 64 ug/dL Normal 41-186 [facility] Comment on above: Order Comment: Speci men Type: BLOOD SPECIMENOrdering Facility: [facility] Address: [address] [place] [address] [place] [id number] Performed By: #### 2 284-8, 2276-4, 46583-1, 2132-01 ####[facility] LABCLIA [id number] [place] [id number] [place] Iron binding capacity [Mass/Vol] 409 ug/dL High 232-386 [facility] Comment on above: Order Comment: Speci men Type: BLOOD SPECIMENOrdering Facility: [facility] Address: [address] [place] [address] [place] [address] Performed By: #### 2 284-8, 2276-4, 23941-8, 2132-01 ####[facility] LABCLIA [id number] [place] [address] [place] Iron/TIBC [Molar ratio] 15.6 % Normal 15.0-57.0 [facility] Comment on above: Order Comment: Speci men Type: BLOOD SPECIMENOrdering Facility: [facility] Address: [address] [place] [address] [place] [address] Performed By: #### 2 284-8, 2276-4, 37037-4, 2132-01 ####[facility] LABCLIA [id number] [place] [id number] [place] Laboratory - Chemistry and C hemistry - challengeon 06-13-2024 IgA [Mass/Vol] 170 mg/dL 70 - 400 mg/dL [facility] IgG [Mass/Vol] 663 mg/dL Low 700 - 1600 mg/dL [facility] IgM [Mass/Vol] 376 mg/dL High 40 - 230 mg/dL [facility] No Panel Informationon 06-13 Interpretation and review of laboratory results Normal [facility] Interpretation and review of laboratory results Abnormal [facility] VITAMIN B12on 06-13-2024 Cobalamin (Vitamin B12) [Mass/Vol] 516 pg/mL 232 - 1245 pg/mL [facility] Vit B12 SerPl-mCncon 025 Cobalamin (Vitamin B12) [Mass/Vol] 516 pg/mL Normal 232-1245 [facility] Comment on above: Order Comment: Speci men Type: BLOOD SPECIMENOrdering Facility: [facility] Address: [address] [place] [address] [place] [address] Performed By: #### 2 284-8, 2276-4, 91069-0, 2132-9 ####[facility] LABCLIA [id number] [facility] [id number] [address] [place] CNPNon 06-12-2024 CNPN Normal [facility] IGP,APTIMA HPV,AGE GDLNon AGE GDLN ACOG TESTING Note . [facility] Comment on above: TESTS RESULT FLAG UN ITS REF RANGE LAB Clinician Provided Cytology Information Source.............Cervix;Endocervix No. of containers..01 ThinPrep Vial Age Algo ACOG Vicky... 30-65 01 FLAG LEGEND: L-Low Normal,H-High Normal,LL-Alert Low,HH-Alert High <-Panic Low,>-Panic High,A-Abnormal,AA-Critical Abnormal Performed at: 01 =G [facility] [place] [address] Aparna Solorzano MD, HPV APTIMA Negative Negative [facility] Comment on above: This nucleic acid am plification test detects fourteen high- risk HPV types (16,18,31,33,35,39,45,51,52,56,58,59,66,68) without differentiation. Performed at: = - [facility] [id number] [employer]: Aparna Solorzano MD, Phone: [phone] Performed at: - [facility], [place] [id number] Liv[employer] Laborer: Aparna Solorzano MD, Phone: [phone] IGP, APTIMA HPV, RFX 16/18,45 Note . [facility] Comment on above: TESTS RESULT FLAG UN ITS REF RANGE LAB DIAGNOSIS: 02 NEGATIVE FOR INTRAEPITHELIAL LESION OR MALIGNANCY. Specimen adequacy: 02 Satisfactory for evaluation. Endocervical and/or squamous metaplastic cells (endocervical component) are present. Performed by: David Kam, Steel Rule [employer] Maker ([facility]) . 02 Note: Note 02 [...] High,A-Abnormal,AA-Critical Abnormal Performed at: 02 [facility] [address] [place] [address] Aparna Solorzano MD, [facility] CBC W Auto Differential pane l (Bld)on 05-19-2024 Basophils (Bld) [#/Vol] 0.08 10*3/uL [facility] Basophils/100 WBC (Bld) 0.6 % [facility] Differential cell count method Nom (Bld) Auto [facility] Eosinophils (Bld) [#/Vol] 0.17 10*3/uL [facility] Eosinophils/100 WBC (Bld) 1.2 % [facility] Erythrocyte distribution width (RBC) [Ratio] 14.3 % 11.5 - 15.0 % [facility] Hematocrit (Bld) [Volume fraction] 39.8 % 36.0 - 46.0 % [facility] Hemoglobin (Bld) [Mass/Vol] 13.4 g/dL 11.5 - 15.5 g/dL [facility] Immature granulocytes (Bld) [#/Vol] 0.13 10*3/uL High [facility] Immature granulocytes/100 WBC (Bld) 0.9 % [facility] Interpretation and review of laboratory results Abnormal [facility] Lymphocytes (Bld) [#/Vol] 2.96 10*3/uL [facility] Lymphocytes/100 WBC (Bld) 20.5 % [facility] MCH (RBC) [Entitic mass] 31.1 pg 26.0 - 34.0 pg [facility] MCHC (RBC) [Mass/Vol] 33.7 g/dL 30.5 - 36.0 g/dL [facility] MCV (RBC) [Entitic vol] 92.3 fL 80.0 - 100.0 fL [facility] Monocytes (Bld) [#/Vol] 0.87 10*3/uL High [facility] Monocytes/100 WBC (Bld) 6.0 % [facility] Neutrophils (Bld) [#/Vol] 10.20 10*3/uL High [facility] Neutrophils/100 WBC (Bld) 70.8 % [facility] Nucleated RBC (Bld) [#/Vol] NINF [facility] Nucleated RBC/100 WBC (Bld) [Ratio] 0.0 % /100 WBC [facility] Platelet mean volume (Bld) [Entitic vol] 10.1 fL 9.0 - 12.7 fL [facility] Platelets (Bld) [#/Vol] 303 10*3/uL [facility] RBC (Bld) [#/Vol] 4.31 10*6/uL 3.90 - 5.2 0 m/uL [facility] WBC (Bld) [#/Vol] 14.41 10*3/uL High [facility] Basophils (Bld) [#/Vol] 0.08 10*3/uL Normal <0.11 [facility] Comment on above: Order Comment: Speci men Type: BLOOD SPECIMENOrdering Facility: [facility] Address: [address] [place] [address] Performed By: #### 5 7021-8 ####[facility] LABCLIA [id number] [place] [address] Basophils/100 WBC (Bld) 0.6 % Normal [facility] Comment on above: Order Comment: Speci men Type: BLOOD SPECIMENOrdering Facility: [facility] Address: [address] [place] [address] Performed By: #### 5 7021-8 ####[facility] LABCLIA [id number] [place] [address] Differential cell count method Nom (Bld) Auto Normal [facility] Comment on above: Order Comment: Speci men Type: BLOOD SPECIMENOrdering Facility: [facility] Address: [address] [place] [address] Performed By: #### 5 7021-8 ####[facility] LABCLIA [id number] [place] [address] Eosinophils (Bld) [#/Vol] 0.17 10*3/uL Normal <0.46 [facility] Comment on above: Order Comment: Speci men Type: BLOOD SPECIMENOrdering Facility: [facility] Address: [address] [place] [address] Performed By: #### 5 7021-8 ####[facility] LABCLIA [id number] [place] [address] Eosinophils/100 WBC (Bld) 1.2 % Normal [facility] Comment on above: Order Comment: Speci men Type: BLOOD SPECIMENOrdering Facility: [facility] Address: [address] [place] [address] Performed By: #### 5 7021-8 ####[facility] LABCLIA [id number] [place] [address] Erythrocyte distribution width (RBC) [Ratio] 14.3 % Normal 11.5-15.0 [facility] Comment on above: Order Comment: Speci men Type: BLOOD SPECIMENOrdering Facility: [facility] Address: [address] [place] [address] Performed By: #### 5 7021-8 ####[facility] LABCLIA [id number] [place] [address] Hematocrit (Bld) [Volume fraction] 39.8 % Normal 36.0-46.0 [facility] Comment on above: Order Comment: Speci men Type: BLOOD SPECIMENOrdering Facility: [facility] Address: [address] [place] [address] Performed By: #### 5 7021-8 ####[facility] LABCLIA [id number] [place] [address] Hemoglobin (Bld) [Mass/Vol] 13.4 g/dL Normal 11.5-15.5 [facility] Comment on above: Order Comment: Speci men Type: BLOOD SPECIMENOrdering Facility: [facility] Address: [address] [place] [address] Performed By: #### 5 7021-8 ####[facility] LABCLIA [id number] [place] [address] Immature granulocytes (Bld) [#/Vol] 0.13 10*3/uL High <0.10 [facility] Comment on above: Order Comment: Speci men Type: BLOOD SPECIMENOrdering Facility: [facility] Address: [address] [place] [address] Performed By: #### 5 7021-8 ####[facility] LABCLIA [id number] [place] [address] Immature granulocytes/100 WBC (Bld) 0.9 % Normal [facility] Comment on above: Order Comment: Speci men Type: BLOOD SPECIMENOrdering Facility: [facility] Address: [address] [place] [address] Performed By: #### 5 7021-8 ####[facility] LABCLIA [id number] [place] [address] Lymphocytes (Bld) [#/Vol] 2.96 10*3/uL Normal 1.00-4.00 [facility] Comment on above: Order Comment: Speci men Type: BLOOD SPECIMENOrdering Facility: [facility] Address: [address] [place] [address] Performed By: #### 5 7021-8 ####[facility] LABCLIA [id number] [place] [address] Lymphocytes/100 WBC (Bld) 20.5 % Normal [facility] Comment on above: Order Comment: Speci men Type: BLOOD SPECIMENOrdering Facility: [facility] Address: [address] [place] [address] Performed By: #### 5 7021-8 ####[facility] LABCLIA [id number] [place] [address] MCH (RBC) [Entitic mass] 31.1 pg Normal 26.0-34.0 [facility] Comment on above: Order Comment: Speci men Type: BLOOD SPECIMENOrdering Facility: [facility] Address: [address] [place] [address] Performed By: #### 5 7021-8 ####[facility] LABCLIA [id number] [place] [address] MCHC (RBC) [Mass/Vol] 33.7 g/dL Normal 30.5-36.0 [facility] Comment on above: Order Comment: Speci men Type: BLOOD SPECIMENOrdering Facility: [facility] Address: [address] [place] [address] Performed By: #### 5 7021-8 ####[facility] LABCLIA [id number] [place] [address] MCV (RBC) [Entitic vol] 92.3 fL Normal 80.0-100.0 [facility] Comment on above: Order Comment: Speci men Type: BLOOD SPECIMENOrdering Facility: [facility] Address: [address] [place] [address] Performed By: #### 5 7021-8 ####[facility] LABCLIA [id number] [place] [address] Monocytes (Bld) [#/Vol] 0.87 10*3/uL High <0.87 [facility] Comment on above: Order Comment: Speci men Type: BLOOD SPECIMENOrdering Facility: [facility] Address: [address] [place] [address] Performed By: #### 5 7021-8 ####[facility] LABCLIA [id number] [place] [address] Monocytes/100 WBC (Bld) 6.0 % Normal [facility] Comment on above: Order Comment: Speci men Type: BLOOD SPECIMENOrdering Facility: [facility] Address: [address] [place] [address] Performed By: #### 5 7021-8 ####[facility] LABCLIA [id number] [place] [address] Neutrophils (Bld) [#/Vol] 10.20 10*3/uL High 1.45-7.50 [facility] Comment on above: Order Comment: Speci men Type: BLOOD SPECIMENOrdering Facility: [facility] Address: [address] [place] [address] Performed By: #### 5 7021-8 ####[facility] LABCLIA [id number] [place] [address] Neutrophils/100 WBC (Bld) 70.8 % Normal [facility] Comment on above: Order Comment: Speci men Type: BLOOD SPECIMENOrdering Facility: [facility] Address: [address] [place] [address] Performed By: #### 5 7021-8 ####[facility] LABCLIA [id number] [place] [address] Nucleated RBC (Bld) [#/Vol] 10*3/uL Normal <0.01 [facility] Comment on above: Order Comment: Speci men Type: BLOOD SPECIMENOrdering Facility: [facility] Address: [address] [place] [address] Performed By: #### 5 7021-8 ####[facility] LABCLIA [id number] [place] [address] Nucleated RBC/100 WBC (Bld) [Ratio] 0.0 /100 WBC Normal [facility] Comment on above: Order Comment: Speci men Type: BLOOD SPECIMENOrdering Facility: [facility] Address: [address] [place] [address] Performed By: #### 5 7021-8 ####[facility] LABIA [id number] [place] [address] Platelet mean volume (Bld) [Entitic vol] 10.1 fL Normal 9.0-12.7 [facility] Comment on above: Order Comment: Speci men Type: BLOOD SPECIMENOrdering Facility: [facility] Address: [address] [place] [address] Performed By: #### 5 7021-8 ####[facility] LABCLIA [id number] [place] [address] Platelets (Bld) [#/Vol] 303 10*3/uL Normal 150-400 [facility] Comment on above: Order Comment: Speci men Type: BLOOD SPECIMENOrdering Facility: [facility] Address: [address] [place] [address] Performed By: #### 5 7021-8 ####[facility] LABCLIA [id number] [place] [address] RBC (Bld) [#/Vol] 4.31 10*6/uL Normal 3.90-5.20 [facility] Comment on above: Order Comment: Speci men Type: BLOOD SPECIMENOrdering Facility: [facility] Address: [address] [place] [address] Performed By: #### 5 7021-8 ####[facility] LABIA [id number] [place] [address] WBC (Bld) [#/Vol] 14.41 10*3/uL High 3.70-11.00 [facility] Comment on above: Order Comment: Speci men Type: BLOOD SPECIMENOrdering Facility: [facility] Address: [address] [place] [address] Performed By: #### 5 7021-8 ####[facility] LABIA [id number] [place] [address] Comprehensive metabolic 2000 panelon 05-19-2024 Albumin [Mass/Vol] 4.0 g/dL 3.9 - 4.9 g/dL [facility] ALP [Catalytic activity/Vol] 79 U/L 34 - 123 U/L [facility] ALT [Catalytic activity/Vol] 25 U/L 7 - 38 U/L [facility] Anion gap [Moles/Vol] 14 mmol/L 8 - 15 mmol/L [facility] AST [Catalytic activity/Vol] 12 U/L Low 13 - 35 U/L [facility] Bilirubin [Mass/Vol] mg/dL Low 0.2 - 1 .3 mg/dL [facility] Calcium [Mass/Vol] 9.4 mg/dL 8.5 - 10. 2 mg/dL [facility] Chloride [Moles/Vol] 105 mmol/L 98 - 10 7 mmol/L [facility] CO2 [Moles/Vol] 21 mmol/L Low 22 - 30 mmol/L [facility] Creatinine [Mass/Vol] 0.49 mg/dL Low 0.58 - 0.96 mg/dL [facility] GFR/1.73 sq M.predicted among non-blacks MDRD (S/P/Bld) [Vol rate/Area] 120 mL/min/{1.73_m2} - PINF [facility] Comment on above: Estimated Glomerular Filtration [...] [facility] Comment on above: The [place] Diab[employer] Association (ADA) provides guidance for [...] Standards of Medical Care in Diabetes 2016, [employer]. Diabetes Care. 2016.39(Suppl 1). Interpretation and review of laboratory results Abnormal [facility] Potassium [Moles/Vol] 3.8 mmol/L 3.7 - 5.1 mmol/L [facility] Protein [Mass/Vol] 6.6 g/dL 6.3 - 8.0 g/dL [facility] Sodium [Moles/Vol] 140 mmol/L 136 - 144 mmol/L [facility] Urea nitrogen [Mass/Vol] 12 mg/dL 7 - 21 mg/dL [facility] Albumin [Mass/Vol] 4.0 g/dL Normal 3.9-4.9 [facility] Comment on above: Order Comment: Speci men Type: BLOOD SPECIMENOrdering Facility: [facility] Address: [address] [place] [address] Performed By: #### 2 4323-8 ####[facility] LABCLIA [id number] [place] [address] [place] ALP [Catalytic activity/Vol] 79 U/L Normal 34-123 [facility] Comment on above: Order Comment: Speci men Type: BLOOD SPECIMENOrdering Facility: [facility] Address: [address] [place] [address] Performed By: #### 2 4323-8 ####[facility] LABCLIA [id number] [place] [address] [place] ALT [Catalytic activity/Vol] 25 U/L Normal 7-38 [facility] Comment on above: Order Comment: Speci men Type: BLOOD SPECIMENOrdering Facility: [facility] Address: [address] [place] [address] Performed By: #### 2 4323-8 ####[facility] LABCLIA [id number] [place] [address] [place] Anion gap [Moles/Vol] 14 mmol/L Normal 8-15 [facility] Comment on above: Order Comment: Speci men Type: BLOOD SPECIMENOrdering Facility: [facility] Address: [address] [place] [address] Performed By: #### 2 4323-8 ####[facility] LABCLIA [id number] [place] [address] [place] AST [Catalytic activity/Vol] 12 U/L Low 13-35 [facility] Comment on above: Order Comment: Speci men Type: BLOOD SPECIMENOrdering Facility: [facility] Address: [address] [id number] Performed By: #### 2 4323-8 ####[facility] LABCLIA [id number] [place] [id number] [place] Bilirubin [Mass/Vol] mg/dL Low 0.2-1.3 [facility] Comment on above: Order Comment: Speci men Type: BLOOD SPECIMENOrdering Facility: [facility] Address: [address] [place] [address] Performed By: #### 2 4323-8 ####[facility] LABCLIA [id number] [place] [address] [place] Calcium [Mass/Vol] 9.4 mg/dL Normal 8.5-10.2 [facility] Comment on above: Order Comment: Speci men Type: BLOOD SPECIMENOrdering Facility: [facility] Address: [address] [place] [address] Performed By: #### 2 4323-8 ####[facility] LABCLIA [id number] [place] [address] [place] Chloride [Moles/Vol] 105 mmol/L Normal 98-107 [facility] Comment on above: Order Comment: Speci men Type: BLOOD SPECIMENOrdering Facility: [facility] Address: [address] [place] [address] Performed By: #### 2 4323-8 ####[facility] LABCLIA [id number] [place] [id number] [place] CO2 [Moles/Vol] 21 mmol/L Low 22-30 [facility] Comment on above: Order Comment: Speci men Type: BLOOD SPECIMENOrdering Facility: [facility] Address: [address] [place], [place] [address] Performed By: #### 2 4323-8 ####[facility] LABCLIA [id number] [place] [address] [place] Creatinine [Mass/Vol] 0.49 mg/dL Low 0.58-0.96 [facility] Comment on above: Order Comment: Semaj cortés Type: BLOOD SPECIMENOrdering Facility: [facility] Address: [address] [place] [address] Performed By: #### 2 4323-8 ####[facility] LABIA [id number] [place] [address] [place] Creatinine and Glomerular filtration rate.predicted panel (S/P/Bld) 120 mL/min/1.73m??? Normal >=60 [facility] Comment on above: Order Comment: Semaj cortés Type: BLOOD SPECIMENOrdering Facility: [facility] Address: [address] [place] [address] Result Comment: Erin mated Glomerular Filtration Rate [...] GFR. Performed By: #### 2 4323-8 ####[facility] LABIA [id number] [place] [address] [place] Glucose [Mass/Vol] 155 mg/dL High 74-99 [facility] Comment on above: Order Comment: Semaj cortés Type: BLOOD SPECIMENOrdering Facility: [facility] Address: [address] [place] [address] Result Comment: The [place] Diabetes Association (ADA) provides guidance for cutoff [...] Standards of Medical Care in Diabetes 2016, [employer] Diabetes Association. Diabetes Care. 2016.39(Suppl 1). Performed By: #### 2 4323-8 ####[facility] LABCLIA [id number] [place] [address] [place] Potassium [Moles/Vol] 3.8 mmol/L Normal 3.7-5.1 [facility] Comment on above: Order Comment: Speci men Type: BLOOD SPECIMENOrdering Facility: [facility] Address: [address] [place] [address] Performed By: #### 2 4323-8 ####[facility] LABCLIA [id number] [place] [address] [place] Protein [Mass/Vol] 6.6 g/dL Normal 6.3-8.0 [facility] Comment on above: Order Comment: Speci men Type: BLOOD SPECIMENOrdering Facility: [facility] Address: [address] [place] [address] Performed By: #### 2 4323-8 ####[facility] LABCLIA [id number] [place] [address] [place] Sodium [Moles/Vol] 140 mmol/L Normal 136-144 [facility] Comment on above: Order Comment: Speci men Type: BLOOD SPECIMENOrdering Facility: [facility] Address: [address] [place] [address] Performed By: #### 2 4323-8 ####[facility] LABCLIA [id number] [place] [address] [place] Urea nitrogen [Mass/Vol] 12 mg/dL Normal 7-21 [facility] Comment on above: Order Comment: Speci men Type: BLOOD SPECIMENOrdering Facility: [facility] Address: [address] [place] [address] Performed By: #### 2 4323-8 ####[facility] LABCLIA [id number] [place] [address] [place] ESR Westergren method (Bld) [Velocity]on 05-19-2024 ESR (Bld) [Velocity] 21 mm/h High [facility] Interpretation and review of laboratory results Abnormal [facility] ESR (Bld) [Velocity] 21 mm/h High 0-20 [facility] Comment on above: Order Comment: Speci men Type: BLOOD SPECIMENOrdering Facility: [facility] Address: [address] [place] [address] Performed By: #### 4 537-7 ####[facility] LABIA [id number] [place] [address] [place] FERRITIN BLDon 05-19-2024 Ferritin [Mass/Vol] 20.6 ng/mL 14.7 - 2 05.1 ng/mL [facility] FOLATE SERUMon 05-19-2024 Folate [Mass/Vol] 11.1 ng/mL 4.7 - PINF ng/mL [facility] Ferritin SerPl-mCncon 2023 Ferritin [Mass/Vol] 20.6 ng/mL Normal 14.7-205.1 [facility] Comment on above: Order Comment: Speci men Type: BLOOD SPECIMENOrdering Facility: [facility] Address: [address] [place] [address] Performed By: #### 5 0190-8, 2276-4, 2284-8, 2132-9 ####[facility] LABIA [id number] [place] [address] [place] Folate SerPl-mCncon 05-19-20 24 Folate [Mass/Vol] 11.1 ng/mL Normal >4.7 [facility] Comment on above: Order Comment: Speci men Type: BLOOD SPECIMENOrdering Facility: [facility] Address: [address] [place] [address] Performed By: #### 5 0190-8, 6-4, 8, 2132-01 ####[facility] LABCLIA [id number] [address] [address] [place] Iron and Iron binding capaci ty panelon 05-19-2024 Interpretation and review of laboratory results Abnormal [facility] Iron [Mass/Vol] 47 ug/dL 41 - 186 ug/dL [facility] Iron binding capacity [Mass/Vol] 420 ug/dL High 232 - 386 ug/dL [facility] Iron/TIBC [Molar ratio] 11.2 % Low 15.0 - 57.0 % [facility] Iron [Mass/Vol] 47 ug/dL Normal 41-186 [facility] Comment on above: Order Comment: Speci men Type: BLOOD SPECIMENOrdering Facility: [facility] Address: [address] [place] [address] Performed By: #### 5 0190-8, 2275-4, 2283-12, 2132-01 ####[facility] LABCLIA [id number] [place] [id number] [place] Iron binding capacity [Mass/Vol] 420 ug/dL High 232-386 [facility] Comment on above: Order Comment: Speci men Type: BLOOD SPECIMENOrdering Facility: [facility] Address: [address] [place] [address] Performed By: #### 5 0190-8, 2275-4, 2283-12, 2132-01 ####[facility] LABCLIA [id number] [place] [id number] [place] Iron/TIBC [Molar ratio] 11.2 % Low 15.0-57.0 [facility] Comment on above: Order Comment: Speci men Type: BLOOD SPECIMENOrdering Facility: [facility] Address: [address] [place] [address] Performed By: #### 5 0190-8, 2275-4, 8, 2132-01 ####[facility] LABCLIA [id number] [address] [address] [place] No Panel Informationon 05-19 Interpretation and review of laboratory results Normal [facility] VITAMIN B12 BLOODon 05-19-20 24 Cobalamin (Vitamin B12) [Mass/Vol] 632 pg/mL 232 - 1245 pg/mL [facility] Vit B12 SerPl-mCncon 024 Cobalamin (Vitamin B12) [Mass/Vol] 632 pg/mL Normal 232-1245 [facility] Comment on above: Order Comment: Speci men Type: BLOOD SPECIMENOrdering Facility: [facility] Address: [address] [place] [address] Performed By: #### 5 0190-8, 2276-4, 2284-8, 2132-9 ####[facility] LABCLIA [id number] [place] [id number] [place] CNNURSEon 04-26-2024 CNNURSE Normal [facility] CNPNon 04-10-2024 CNPN Normal [facility] ALL CBC WITH AUTO DIFFon BASOPHILS ABSOLUTE AUTO 0.1 [facility] Basophils/100 WBC (Bld) 0.4 % 0.2 - 2.0 % [facility] Eosinophils/100 WBC (Bld) 0.4 % Low 0.9 - 7.0 % [facility] Erythrocyte distribution width (RBC) [Ratio] 15.1 % High 11.0 - 15.0 % [facility] Hematocrit (Bld) [Volume fraction] 39.7 % 36.0 - 48.0 % [facility] Hemoglobin (Bld) [Mass/Vol] 13 g/dL 12.0 - 16.0 g/dL [facility] IMMATURE GRANULOCYTES ABS AUTO 0.1 High [facility] Immature granulocytes/100 WBC (Bld) 0.9 % High 0.0 - 0.5 % [facility] Interpretation and review of laboratory results Abnormal [facility] LYMPHOCYTES ABSOLUTE AUTO 2.1 [facility] Lymphocytes/100 WBC (Bld) 18.4 % Low 20.5 - 60.0 % [facility] MCH (RBC) [Entitic mass] 30.9 pg 26.7 - 34.0 pg [facility] MCHC (RBC) [Mass/Vol] 32.7 g/dL 29.9 - 35.2 g/dL [facility] MCV (RBC) [Entitic vol] 94.3 fL 81.0 - 99.0 fL [facility] MONOCYTES ABSOLUTE AUTO 0.8 [facility] Monocytes/100 WBC (Bld) 6.7 % 1.7 - 12.0 % [facility] NEUTROPHILS ABSOLUTE AUTO 8.3 High [facility] Neutrophils/100 WBC (Bld) 73.2 % 43.0 - 75.0 % [facility] Platelet mean volume (Bld) [Entitic vol] 10.1 fL 9.5 - 13.5 fL [facility] TBH EO # 0.1 [facility] TB PLT 326 [facility] RBC 4.21 [facility] WBC 11.4 High [facility] ALL THYROID STIM HORMONEon 06-06-2023 Interpretation and review of laboratory results Abnormal [facility] TSH Qn 0.333 m[IU]/L Low [facility] ALL THYROXINE (T4) FREEon Free T4 [Mass/Vol] 1.01 ng/dL 0.76 - 1. 46 ng/dL [facility] APTTon 04-06-2024 aPTT Coag (Bld) [Time] 25.6 s [facility] MLR HEMOGLOBIN A1Con 024 Glucose [Mass/Vol] 134 mg/dL [facility] HbA1c (Bld) [Mass fraction] 6.3 % High 4.5 - 6.2 % [facility] Comment on above: ADA RECOMMENDED LIMI T 4.0 - 6.0 ADA THERAPEUTIC TARGET < 7.0 ACTION SUGGESTED > 7.0 Interpretation and review of laboratory results Abnormal [facility] No Panel Informationon 04-06 [facility] SRMCOH PROTHROMBIN TIME INR W/O COUMon 04-06-2024 PT Coag (PPP) [Time] 9.6 s [facility] INR <0.93 [facility] Comment on above: DESIRED INR: 2.0-3.0 CONDITIONS NOT LISTED BELOW 2.5-3.5 FOR PROSTHETIC HEART VALVE REPLACEMENT 2.5-3.5 RECURRENT THROMBOSIS TB PREG QUANT HCGon 024 HCG QUANTITATIVE <1 mIU/mL [facility] Comment on above: 5-50 0.2-1 WEEK 50-500 1-2 WEEKS 100-5,000 2-3 WEEKS 500-10,000 3-4 WEEKS 1,000-50,000 4-5 WEEKS 10,000-100,000 5-6 WEEKS 15,000-200,000 6-8 WEEKS 10,000-100,000 2-3 MONTHS CNPNon 04-02-2024 CNPN Normal [facility] 25(OH)D3 SerPl-mCncon 2023 25-hydroxyvitamin D3 [Mass/Vol] 19.9 ng/mL Low 31.0-80.0 [facility] Comment on above: Order Comment: Speci men Type: BLOOD SPECIMENOrdering Facility: [facility] Address: [address] [place] [address] Result Comment: Clas sification of 25 [place] Vitamin D status:Deficiency/Insufficiency: < or = 30 ng/ml.Sufficiency/Optimal Levels: 31-80 ng/mLToxicity: > 100 ng/mL.Test performed by chemiluminescent immunoassay. Performed By: #### 1 989-3 ####[facility] LABIA [id number] [place] [address] [place] [facility] BLOOD TB SCREENon 03-23-2024 M. tuberculosis tuberculin stim IFN-g Ql (Bld) Negative Normal [facility] Comment on above: Order Comment: Speci men Type: BLOOD SPECIMENOrdering Facility: [facility] Address: [address] [place] [address] Performed By: #### I NFTBP ####[facility] LABIA [id number] [place] [address] [place] MITOGEN MINUS NIL >10.00 Normal >=0.50 [facility] Comment on above: Order Comment: Speci men Type: BLOOD SPECIMENOrdering Facility: [facility] Address: [address] [place] [address] Performed By: #### I NFTBP ####[facility] LABCLIA [id number] [place] [address] [place] TB GAMMA INTERPRETATION Normal [facility] Comment on above: Order Comment: Speci men Type: BLOOD SPECIMENOrdering Facility: [facility] Address: [address] [place] [address] Performed By: #### I NFTBP ####[facility] LABCLIA [id number] [place] [address] [place] TB NIL <0.00 Normal <=8.00 [facility] Comment on above: Order Comment: Speci men Type: BLOOD SPECIMENOrdering Facility: [facility] Address: [address] [place] [address] Performed By: #### I NFTBP ####[facility] LABCLIA [id number] [place] [address] [place] TB1 AG MINUS NIL 0.00 IU/mL Normal <0.35 [facility] Comment on above: Order Comment: Speci men Type: BLOOD SPECIMENOrdering Facility: [facility] Address: [address] [place] [address] Performed By: #### I NFTBP ####[facility] LABCLIA [id number] [place] [address] [place] TB2 AG MINUS NIL 0.00 IU/mL Normal <0.35 [facility] Comment on above: Order Comment: Speci men Type: BLOOD SPECIMENOrdering Facility: [facility] Address: [address] [place] [address] Performed By: #### I NFTBP ####[facility] LABCLIA [id number] [place] [address] [place] Bacteria Bld Culton 03-23-20 24 Bacteria identified Cx Nom (Bld) CULTURE, BLOOD: No growth 5 days Normal [facility] Comment on above: Performed By: #### 6 00-7 ####[facility] LABCLIA [id number] [facility] [id number] [id number] [place] CBC W Auto Differential pane l (Bld)on 03-23-2024 Basophils (Bld) [#/Vol] 0.06 10*3/uL Normal <0.11 [facility] Comment on above: Order Comment: Speci men Type: BLOOD SPECIMENOrdering Facility: [facility] Address: [address] [place] [address] Performed By: #### 5 7021-8 ####[facility] LABCLIA [id number] [place] [address] Basophils/100 WBC (Bld) 0.5 % Normal [facility] Comment on above: Order Comment: Speci men Type: BLOOD SPECIMENOrdering Facility: [facility] Address: [address] [place] [address] Performed By: #### 5 7021-8 ####[facility] LABCLIA [id number] [place] [address] Differential cell count method Nom (Bld) Auto Normal [facility] Comment on above: Order Comment: Speci men Type: BLOOD SPECIMENOrdering Facility: [facility] Address: [address] [place] [address] Performed By: #### 5 7021-8 ####[facility] LABCLIA [id number] [place] [address] Eosinophils (Bld) [#/Vol] 0.13 10*3/uL Normal <0.46 [facility] Comment on above: Order Comment: Speci men Type: BLOOD SPECIMENOrdering Facility: [facility] Address: [address] [place] [address] Performed By: #### 5 7021-8 ####[facility] LABCLIA [id number] [place] [address] Eosinophils/100 WBC (Bld) 1.0 % Normal [facility] Comment on above: Order Comment: Speci men Type: BLOOD SPECIMENOrdering Facility: [facility] Address: [address] [place] [address] Performed By: #### 5 7021-8 ####[facility] LABCLIA [id number] [place] [address] Erythrocyte distribution width (RBC) [Ratio] 15.2 % High 11.5-15.0 [facility] Comment on above: Order Comment: Speci men Type: BLOOD SPECIMENOrdering Facility: [facility] Address: [address] [place] [address] Performed By: #### 5 7021-8 ####[facility] LABCLIA [id number] [place] [address] Hematocrit (Bld) [Volume fraction] 39.3 % Normal 36.0-46.0 [facility] Comment on above: Order Comment: Speci men Type: BLOOD SPECIMENOrdering Facility: [facility] Address: [address] [place] [address] Performed By: #### 5 7021-8 ####[facility] LABCLIA [id number] [place] [address] Hemoglobin (Bld) [Mass/Vol] 13.1 g/dL Normal 11.5-15.5 [facility] Comment on above: Order Comment: Speci men Type: BLOOD SPECIMENOrdering Facility: [facility] Address: [address] [place] [address] Performed By: #### 5 7021-8 ####[facility] LABCLIA [id number] [place] [address] Immature granulocytes (Bld) [#/Vol] 0.12 10*3/uL High <0.10 [facility] Comment on above: Order Comment: Speci men Type: BLOOD SPECIMENOrdering Facility: [facility] Address: [address] [place] [address] Performed By: #### 5 7021-8 ####[facility] LABCLIA [id number] [place] [address] Immature granulocytes/100 WBC (Bld) 0.9 % Normal [facility] Comment on above: Order Comment: Speci men Type: BLOOD SPECIMENOrdering Facility: [facility] Address: [address] [place] [address] Performed By: #### 5 7021-8 ####[facility] LABCLIA [id number] [place] [address] Lymphocytes (Bld) [#/Vol] 2.03 10*3/uL Normal 1.00-4.00 [facility] Comment on above: Order Comment: Speci men Type: BLOOD SPECIMENOrdering Facility: [facility] Address: [address] [place] [address] Performed By: #### 5 7021-8 ####[facility] LABIA [id number] [place] [address] Lymphocytes/100 WBC (Bld) 15.7 % Normal [facility] Comment on above: Order Comment: Speci men Type: BLOOD SPECIMENOrdering Facility: [facility] Address: [address] [place] [address] Performed By: #### 5 7021-8 ####[facility] LABCLIA [id number] [place] [address] MCH (RBC) [Entitic mass] 31.3 pg Normal 26.0-34.0 [facility] Comment on above: Order Comment: Speci men Type: BLOOD SPECIMENOrdering Facility: [facility] Address: [address] [place] [address] Performed By: #### 5 7021-8 ####[facility] LABIA [id number] [place] [address] MCHC (RBC) [Mass/Vol] 33.3 g/dL Normal 30.5-36.0 [facility] Comment on above: Order Comment: Speci men Type: BLOOD SPECIMENOrdering Facility: [facility] Address: [address] [place] [address] Performed By: #### 5 7021-8 ####[facility] LABCLIA [id number] [place] [address] MCV (RBC) [Entitic vol] 93.8 fL Normal 80.0-100.0 [facility] Comment on above: Order Comment: Speci men Type: BLOOD SPECIMENOrdering Facility: [facility] Address: [address] [place] [address] Performed By: #### 5 7021-8 ####[facility] LABCLIA [id number] [place] [address] Monocytes (Bld) [#/Vol] 0.65 10*3/uL Normal <0.87 [facility] Comment on above: Order Comment: Speci men Type: BLOOD SPECIMENOrdering Facility: [facility] Address: [address] [place] [address] Performed By: #### 5 7021-8 ####[facility] LABCLIA [id number] [place] [address] Monocytes/100 WBC (Bld) 5.0 % Normal [facility] Comment on above: Order Comment: Speci men Type: BLOOD SPECIMENOrdering Facility: [facility] Address: [address] [place] [address] Performed By: #### 5 7021-8 ####[facility] LABCLIA [id number] [place] [address] Neutrophils (Bld) [#/Vol] 9.90 10*3/uL High 1.45-7.50 [facility] Comment on above: Order Comment: Speci men Type: BLOOD SPECIMENOrdering Facility: [facility] Address: [address] [place] [address] Performed By: #### 5 7021-8 ####[facility] LABCLIA [id number] [place] [address] Neutrophils/100 WBC (Bld) 76.9 % Normal [facility] Comment on above: Order Comment: Speci men Type: BLOOD SPECIMENOrdering Facility: [facility] Address: [address] [place] [address] Performed By: #### 5 7021-8 ####[facility] LABCLIA [id number] [place] [address] Nucleated RBC (Bld) [#/Vol] 10*3/uL Normal <0.01 [facility] Comment on above: Order Comment: Speci men Type: BLOOD SPECIMENOrdering Facility: [facility] Address: [address] [place] [address] Performed By: #### 5 7021-8 ####[facility] LABCLIA [id number] [place] [address] Nucleated RBC/100 WBC (Bld) [Ratio] 0.0 /100 WBC Normal [facility] Comment on above: Order Comment: Speci men Type: BLOOD SPECIMENOrdering Facility: [facility] Address: [address] [place] [address] Performed By: #### 5 7021-8 ####[facility] LABIA [id number] [place] [address] Platelet mean volume (Bld) [Entitic vol] 10.0 fL Normal 9.0-12.7 [facility] Comment on above: Order Comment: Speci men Type: BLOOD SPECIMENOrdering Facility: [facility] Address: [address] [place] [address] Performed By: #### 5 7021-8 ####[facility] LABCLIA [id number] [place] [address] Platelets (Bld) [#/Vol] 262 10*3/uL Normal 150-400 [facility] Comment on above: Order Comment: Speci men Type: BLOOD SPECIMENOrdering Facility: [facility] Address: [address] [place] [address] Performed By: #### 5 7021-8 ####[facility] LABCLIA [id number] [place] [address] RBC (Bld) [#/Vol] 4.19 10*6/uL Normal 3.90-5.20 [facility] Comment on above: Order Comment: Speci men Type: BLOOD SPECIMENOrdering Facility: [facility] Address: [address] [place] [address] Performed By: #### 5 7021-8 ####[facility] LABCLIA [id number] [place] [address] WBC (Bld) [#/Vol] 12.89 10*3/uL High 3.70-11.00 [facility] Comment on above: Order Comment: Speci men Type: BLOOD SPECIMENOrdering Facility: [facility] Address: [address] [place] [address] Performed By: #### 5 7021-8 ####[facility] LABCLIA [id number] [place] [address] CNNURSEon 03-23-2024 CNNURSE Normal [facility] CRP SerPl-mCncon 03-23-2024 CRP [Mass/Vol] 0.3 mg/dL Normal <0.9 [facility] Comment on above: Order Comment: Speci men Type: BLOOD SPECIMENOrdering Facility: [facility] Address: [address] [place] [address] Performed By: #### 5 0190-8, 2276-4, 1987- ####[facility] LABCLIA [id number] [facility] [id number] [place] [address] [place] Comprehensive metabolic 2000 panelon 03-23-2024 Albumin [Mass/Vol] 3.9 g/dL Normal 3.9-4.9 [facility] Comment on above: Order Comment: Speci men Type: BLOOD SPECIMENOrdering Facility: [facility] Address: [address] [place] [address] Performed By: #### 2 4323-8 ####[facility] LABCLIA [id number] [place] [address] [place] ALP [Catalytic activity/Vol] 70 U/L Normal 34-123 [facility] Comment on above: Order Comment: Speci men Type: BLOOD SPECIMENOrdering Facility: [facility] Address: [address] [place] [address] Performed By: #### 2 4323-8 ####[facility] LABCLIA [id number] [place] [address] [place] ALT [Catalytic activity/Vol] 27 U/L Normal 7-38 [facility] Comment on above: Order Comment: Speci men Type: BLOOD SPECIMENOrdering Facility: [facility] Address: [address] [place] [address] Performed By: #### 2 4323-8 ####[facility] LABCLIA [id number] [place] [address] [place] Anion gap [Moles/Vol] 15 mmol/L Normal 8-15 [facility] Comment on above: Order Comment: Speci men Type: BLOOD SPECIMENOrdering Facility: [facility] Address: [address] [place] [address] Performed By: #### 2 4323-8 ####[facility] LABCLIA [id number] [place] [address] [place] AST [Catalytic activity/Vol] 20 U/L Normal 13-35 [facility] Comment on above: Order Comment: Speci men Type: BLOOD SPECIMENOrdering Facility: [facility] Address: [address] [place], [place] [address] Performed By: #### 2 4323-8 ####[facility] LABCLIA [id number] [place] [address] [place] Bilirubin [Mass/Vol] mg/dL Low 0.2-1.3 [facility] Comment on above: Order Comment: Speci men Type: BLOOD SPECIMENOrdering Facility: [facility] Address: [address] [place] [place] [id number] Performed By: #### 2 4323-8 ####[facility] LABCLIA [id number] [place] [address] [place] Calcium [Mass/Vol] 9.2 mg/dL Normal 8.5-10.2 [facility] Comment on above: Order Comment: Speci men Type: BLOOD SPECIMENOrdering Facility: [facility] Address: [address] [place] [address] Performed By: #### 2 4323-8 ####[facility] LABCLIA [id number] [place] [address] [place] Chloride [Moles/Vol] 104 mmol/L Normal 98-107 [facility] Comment on above: Order Comment: Speci men Type: BLOOD SPECIMENOrdering Facility: [facility] Address: [address] [place] [address] Performed By: #### 2 4323-8 ####[facility] LABCLIA [id number] [place] [address] [place] CO2 [Moles/Vol] 20 mmol/L Low 22-30 [facility] Comment on above: Order Comment: Speci men Type: BLOOD SPECIMENOrdering Facility: [facility] Address: [address] [place], [place] [address] Performed By: #### 2 4323-8 ####[facility] LABCLIA [id number] [place] [address] [place] Creatinine [Mass/Vol] 0.61 mg/dL Normal 0.58-0.96 [facility] Comment on above: Order Comment: Speci men Type: BLOOD SPECIMENOrdering Facility: [facility] Address: [address] [place], [place] [address] Performed By: #### 2 4323-8 ####[facility] LABCLIA [id number] [place] [address] [place] Creatinine and Glomerular filtration rate.predicted panel (S/P/Bld) 114 mL/min/1.73m??? Normal >=60 [facility] Comment on above: Order Comment: Semaj cortés Type: BLOOD SPECIMENOrdering Facility: [facility] Address: [address] [place] [address] Result Comment: Erin mated Glomerular Filtration Rate [...] GFR. Performed By: #### 2 4323-8 ####[facility] LABCLIA [id number] [place] [address] [place] Glucose [Mass/Vol] 152 mg/dL High 74-99 [facility] Comment on above: Order Comment: Semaj cortés Type: BLOOD SPECIMENOrdering Facility: [facility] Address: [address] [place] [address] Result Comment: The [place] Diabetes Association (ADA) provides guidance for cutoff [...] Standards of Medical Care in Diabetes 2016, [place] Diabetes Association. Diabetes Care. 2016.39(Suppl 1). Performed By: #### 2 4323-8 ####[facility] LABCLIA [id number] [place] [address] [place] Potassium [Moles/Vol] 4.3 mmol/L Normal 3.7-5.1 [facility] Comment on above: Order Comment: Speci men Type: BLOOD SPECIMENOrdering Facility: [facility] Address: [address] [place] [address] Performed By: #### 2 4323-8 ####[facility] LABCLIA [id number] [place] [address] [place] Protein [Mass/Vol] 6.6 g/dL Normal 6.3-8.0 [facility] Comment on above: Order Comment: Speci men Type: BLOOD SPECIMENOrdering Facility: [facility] Address: [address] [place] [address] Performed By: #### 2 4323-8 ####[facility] LABCLIA [id number] [place] [address] [place] Sodium [Moles/Vol] 139 mmol/L Normal 136-144 [facility] Comment on above: Order Comment: Speci men Type: BLOOD SPECIMENOrdering Facility: [facility] Address: [address] [place] [address] Performed By: #### 2 4323-8 ####[facility] LABCLIA [id number] [place] [address] [place] Urea nitrogen [Mass/Vol] 20 mg/dL Normal 7-21 [facility] Comment on above: Order Comment: Speci men Type: BLOOD SPECIMENOrdering Facility: [facility] Address: [address] [place] [address] Performed By: #### 2 4323-8 ####[facility] LABCLIA [id number] [place] [address] [place] ESR Westergren method (Bld) [Velocity]on 03-23-2024 ESR (Bld) [Velocity] 27 mm/h High 0-20 [facility] Comment on above: Order Comment: Speci men Type: BLOOD SPECIMENOrdering Facility: [facility] Address: [address] [place], [place] [address] Performed By: #### 4 537-7 ####[facility] LABCLIA [id number] [place] [address] [place] Ferritin [facility] 2023 Ferritin [Mass/Vol] 33.3 ng/mL Normal 14.7-205.1 [facility] Comment on above: Order Comment: Speci men Type: BLOOD SPECIMENOrdering Facility: [facility] Address: [address] [place] [address] Performed By: #### 5 0190-8, 2276-4, 1987-09 ####[facility] LABIA [id number] [place] [address] [place] Folate SerPl-ncon 03-23-20 Folate [Mass/Vol] 13.0 ng/mL Normal >4.7 [facility] Comment on above: Order Comment: Speci men Type: BLOOD SPECIMENOrdering Facility: [facility] Address: [address] [place] [address] Performed By: #### 2 132-9, 2284-8 ####[facility] LABIA [id number] [place] [address] [place] HCG ( test) Ql (U)o n 03-23-2024 Interpretation and review of laboratory results Normal [facility] Preg Test, Ur Negative Negative [facility] IMMUNOGLOBULINS,IGG,IGA,IGMo n 03-23-2024 IgA [Mass/Vol] 171 mg/dL Normal 70-400 [facility] Comment on above: Order Comment: Speci men Type: BLOOD SPECIMENOrdering Facility: [facility] Address: [address] [place] [address] Performed By: #### S ERNBAM ####[facility] LABCLIA [id number] [place] [address] [place] IgG [Mass/Vol] 476 mg/dL Low 700-1600 [facility] Comment on above: Order Comment: Speci men Type: BLOOD SPECIMENOrdering Facility: [facility] Address: [address] [place] [address] Performed By: #### S ERIMM ####[facility] LABCLIA [id number] [place] [id number] [place] IgM [Mass/Vol] 373 mg/dL High 40-230 [facility] Comment on above: Order Comment: Speci men Type: BLOOD SPECIMENOrdering Facility: [facility] Address: [address] [place] [address] Performed By: #### S ERIMM ####[facility] LABCLIA [id number] [place] [address] [place] Iron and Iron binding capaci ty panelon 03-23-2024 Iron [Mass/Vol] 67 ug/dL Normal 41-186 [facility] Comment on above: Order Comment: Speci men Type: BLOOD SPECIMENOrdering Facility: [facility] Address: [address] [place] [address] Performed By: #### 5 0190-8, 2275-08, 1987-09 ####[facility] LABIA [id number] [place] [address] [place] Iron binding capacity [Mass/Vol] 399 ug/dL High 232-386 [facility] Comment on above: Order Comment: Speci men Type: BLOOD SPECIMENOrdering Facility: [facility] Address: [address] [place] [address] Performed By: #### 5 0190-8, 2275-08, 1987-09 ####[facility] LABIA [id number] [place] [address] [place] Iron/TIBC [Molar ratio] 16.8 % Normal 15.0-57.0 [facility] Comment on above: Order Comment: Speci men Type: BLOOD SPECIMENOrdering Facility: [facility] Address: [address] [place] [address] Performed By: #### 5 0190-8, 2276-4, 1987-09 ####[facility] LABCLIA [id number] [address] [place] Urinalysis macro (dipstick) panel (U)on 03-23-2024 Bilirubin, UA Negative Negative - 4(70) +++ mg/dL [facility] Blood, UA Positive Negative - 50 Dusty/mcL [facility] Comment on above: large Clarity, UA Cloudy [facility] Color, UA Dark [place]ie [facility] Glucose, UA Positive Negative - 2000(110) ++++ mg/dL [facility] Comment on above: 100 mg Interpretation and review of laboratory results Abnormal [facility] Ketones, UA Negative Negative - 160(16) ++++ mg/dL [facility] Leukocytes, UA Positive Negative - 500+++ Andi/mcL [facility] Comment on above: small Nitrite, UA Negative Negative - Positive [facility] pH, UA 5.5 5 - 9 [facility] Protein, UA Positive Negative - 2000(20) ++++ mg/dL [facility] Comment on above: 30 mg Spec Grav, UA 1.03 1 - 1.03 [facility] Urobilinogen, UA 0.2 0.2 - 12 mg/dL [facility] Vit B12 SerPl-mCncon 024 Cobalamin (Vitamin B12) [Mass/Vol] 607 pg/mL Normal 232-1245 [facility] Comment on above: Order Comment: Speci men Type: BLOOD SPECIMENOrdering Facility: [facility] Address: [address] [place] [address] Performed By: #### 2 132-9, 2284-8 ####[facility] LABCLIA [id number] [address] [place] Office Visiton 03-08-2024 Follow-up visit [id number] Ariadna Haley 1980 F Date Provider Department Center 03/08/2024 Renny-CALOS MENDO[facility] Family History Problem Relation Age of Onset Heart failure Maternal Grandmother Heart attack Maternal Grandfather Family Status - Relation Status Age at Maternal Grandmother Maternal Grandfather Level of Service:80395 OR OFFICE/OUTPATIENT NEW MODERATE MDM 45 MINUTES Normal [facility] HCG ( test) Marcelo d Ql (U)Ordered By: Adolfo Kang on 02-16-2024 HCG ( test) Ql (U) Negative [facility] ECG 12 Leadon 07-13-2023 ECG revealed normal sinus rhythm [facility] Work Phone: CBC AUTO DIFFon 09-24-2022 BASO # 0.1 103/ul Normal 0.0-0.1 [facility] Comment on above: Performed By: #### U AMIC #### [facility] [address] [place] [address] Dr. Manda York Basophils/100 WBC (Bld) 0.6 % Normal 0.2-2.0 [facility] Comment on above: Performed By: #### U AMIC #### [facility] [address] [address] [address] Manda York EO # 0.1 103/ul Normal 0.0-0.7 [facility] Comment on above: Performed By: #### U AMIC #### [facility] [address] [address] [address] Manda York Eosinophils/100 WBC (Bld) 0.6 % Critically low 0.9-7.0 [facility] Comment on above: Performed By: #### U AMIC #### [facility] [address] [address] [address] Manda York Erythrocyte distribution width (RBC) [Ratio] 14.6 % Normal 11.0-15.0 [facility] Comment on above: Performed By: #### U AMIC #### [facility] [address] [address] [address] Manda York Hematocrit (Bld) [Volume fraction] 43.4 % Normal 36.0-48.0 [facility] Comment on above: Performed By: #### U AMIC #### [facility] [address] [place] [address] Dr. Manda York Hemoglobin (Bld) [Mass/Vol] 13.7 g/dL Normal 12.0-16.0 [facility] Comment on above: Performed By: #### U AMIC #### [facility] [address] [address] [address] Manda York IG # 0.12 10e3/ul Critically high 0.00-0.03 [facility] Comment on above: Performed By: #### U AMIC #### [facility] [address] [place] [address] Dr. Manda York IG % 0.8 % Critically high 0.0-0.5 [facility] Comment on above: Performed By: #### U AMIC #### [facility] [address] [place] [address] Dr. Manda York LYMPH # 2.6 103/ul Normal 1.2-3.8 [facility] Comment on above: Performed By: #### U AMIC #### [facility] [address] [place] [address] Dr. Manda York Lymphocytes/100 WBC (Bld) 18.3 % Critically low 20.5-60.0 [facility] Comment on above: Performed By: #### U AMIC #### [facility] [address] [place] [address] Dr. Manda York MANUAL DIFF REQ NO Normal [facility] Comment on above: Performed By: #### U AMIC #### [facility] [address] [address] [address] Manda York MCH (RBC) [Entitic mass] 29.0 pg Normal 26.7-34.0 [facility] Comment on above: Performed By: #### U AMIC #### [facility] [address] [place] [address] Dr. Manda York MCHC (RBC) [Mass/Vol] 31.6 g/dL Normal 29.9-35.2 [facility] Comment on above: Performed By: #### U AMIC #### [facility] [address] [place] [address] Dr. Manda York MCV (RBC) [Entitic vol] 91.8 fL Normal 81.0-99.0 [facility] Comment on above: Performed By: #### U AMIC #### [facility] [address] [place] [address] Dr. Manda York MONO # 0.7 103/ul Normal 0.3-0.8 [facility] Comment on above: Performed By: #### U AMIC #### [facility] [address] [place] [address] Dr. Manda York Monocytes/100 WBC (Bld) 5.1 % Normal 1.7-12.0 [facility] Comment on above: Performed By: #### U AMIC #### [facility] [address] [place] [address] Dr. Manda York NEUT # 10.6 103/ul Critically high 1.4-6.5 [facility] Comment on above: Performed By: #### U AMIC #### [facility] [address] [place] [address] Dr. Manda York Neutrophils/100 WBC (Bld) 74.6 % Normal 43.0-75.0 [facility] Comment on above: Performed By: #### U AMIC #### [facility] [address] [place] [address] Dr. Manda York Platelet mean volume (Bld) [Entitic vol] 9.4 fL Critically low 9.5-13.5 [facility] Comment on above: Performed By: #### U AMIC #### [facility] [address] [place] [address] Dr. Manda York PLT 307 103/ul Normal 150-450 [facility] Comment on above: Performed By: #### U AMIC #### [facility] [address] [place] [address] Dr. Manda York RBC 4.73 106/ul Normal 4.20-5.40 [facility] Comment on above: Performed By: #### U AMIC #### [facility] [address] [place] [address] Dr. Manda York WBC 14.2 103/ul Critically high 4.0-11.0 [facility] Comment on above: Performed By: #### U AMIC #### [facility] [address] [place] [address] Dr. Manda York FREE T4on 09-24-2022 Free T4 [Mass/Vol] 1.31 ng/dL Normal 0.76-1.46 [facility] Comment on above: Performed By: #### F T4 #### [facility] [address] [place] [address] Dr. Manda York GLYCOHEMOGLOBIN A1Con 2022 ADA RECOMMENDATION SEE BELOW Normal [facility] Comment on above: Result Comment: ADA RECOMMENDED LIMIT 4.0 - 6.0 ADA THERAPEUTIC TARGET < 7.0 ACTION SUGGESTED > 7.0 Performed By: #### A 1C #### [facility] [address] [place] [address] Dr. Manda York Glucose [Mass/Vol] 120 mg/dL Normal [facility] Comment on above: Performed By: #### A 1C #### [facility] [address] [place] [address] Dr. Manda York HbA1c (Bld) [Mass fraction] 5.8 % Normal 4.5-6.2 [facility] Comment on above: Performed By: #### A 1C #### [facility] [address] [place] [address] Dr. Manda York PREG QUANT HCGon 09-24-2022 HCG QUANT <1 Normal [facility] Comment on above: Performed By: #### F T4 #### [facility] [address] [place] [address] Dr. Manda York HCG RANGE SEE BELOW Normal [facility] Comment on above: Result Comment: 5-50 0.2-1 WEEK 50-500 1-2 WEEKS 100-5,000 2-3 WEEKS 500-10,000 3-4 WEEKS 1,000-50,000 4-5 WEEKS 10,000-100,000 5-6 WEEKS 15,000-200,000 6-8 WEEKS 10,000-100,000 2-3 MONTHS Performed By: #### F T4 #### [facility] [address] [place] [address] Dr. Manda York PROTIMEon 09-24-2022 INR Coag (PPP) [Relative time] {INR} Normal [facility] Comment on above: Performed By: #### F T4 #### [facility] [address] [place] [address] Dr. Manda York INR GUIDELINES SEE BELOW Normal [facility] Comment on above: Result Comment: SHERRY RED INR: 2.0 - 3.0 CONDITIONS NOT LISTED BELOW 2.5 - 3.5 FOR PROSTHETIC HEART VALVE REPLACEMENT 2.5 - 3.5 RECURRENT THROMBOSIS Performed By: #### F T4 #### [facility] [address] [place] [address] Dr. Manda York PT Coag (PPP) [Time] 9.6 s Normal 9.0-11.6 [facility] Comment on above: Performed By: #### F T4 #### [facility] [address] [place] [address] Dr. Manda York PTTon 09-24-2022 aPTT Coag (Bld) [Time] 28.2 s Normal 22.3-36.2 [facility] Comment on above: Performed By: #### F T4 #### [facility] [address] [place] [address] Dr. Manda York TSHon 09-24-2022 TSH 0.300 uIU/mL Critically low 0.358-3.740 [facility] Comment on above: Performed By: #### F T4 #### [facility] [address] [place] [address] Dr. Manda York US PELVIS TRANSVAGon 023 [...] by: AURORA SHAIKH Date: 2022-09-24 17:50 Normal [facility] PAP ACOG PANEL 2: 30 to 65on 09-18-2022 . . Normal [facility] Comment on above: Result Comment: Perf ormed at: WB Performed By: #### F T4 #### [facility] [address] [place] [address] Dr. Manda York Age Gdln ACOG Testing 30-65 Normal [facility] Comment on above: Performed By: #### F T4 #### [facility] [address] [address] [address] Manda York DIAGNOSIS: Comment Normal [facility] Comment on above: Result Comment: NEGA TIVE FOR INTRAEPITHELIAL LESION OR MALIGNANCY. Performed at: WB Performed By: #### F T4 #### [facility] [address] [address] [address] Manda York HPV Aptima Negative Normal Negative [facility] Comment on above: Result Comment: This nucleic acid amplification test detects fourteen high-risk HPV types (16,18,31,33,35,39,45,51,52,56,58,59,66,68) without differentiation. Performed at: =G Performed By: #### F T4 #### [facility] [address] [address] [address] Manda York HPV Genotype Reflex Comment Normal [facility] Comment on above: Result Comment: Crit eria not met, HPV Genotype not performed. Performed at: WB Performed By: #### F T4 #### [facility] [address] [place] [address] Dr. Manda York Methodology: Comment Normal [facility] Comment on above: Result Comment: This liquid based ThinPrep(R) pap test was screened with the use of an image guided system. Performed at: WB Performed By: #### F T4 #### [facility] [address] [address] [address] Manda York Note: Comment Normal [facility] Comment on above: Result Comment: The Pap smear is a screening test designed to aid in the detection of premalignant and malignant conditions of the uterine cervix. It is not a diagnostic procedure and should not be used as the sole means of detecting cervical cancer. Both false-positive and false-negative reports do occur. . Performed at: WB Performed By: #### F T4 #### [facility] [address] [address] [address] Manda York Performed by: Comment Normal [facility] Comment on above: Result Comment: Lorena Peters, Steel Rule Die Maker (ASCP) Performed at: WB Performed By: #### F T4 #### [facility] [address] [address] [address] Manda York Specimen adequacy: Comment Normal [facility] Comment on above: Result Comment: Sati sfactory for evaluation. Endocervical and/or squamous metaplastic cells (endocervical component) are present. Performed at: WB Performed By: #### F T4 #### [facility] [address] [address] [address] Manda York Cytology Cervical or vaginal smear or scraping studyOrdered By: Hazel Torres on 09-10-2022 [facility] MG MAMM SCREEN 3D SELENE CADon 09-01-2022 MG MAMM SCREEN 3D SELENE CAD Patient: ARIADNA HALEY Exam Date: 09/01/2022 : 1980 Gender:F Ordering : DR MANUEL FERRIS . Admission #: [id number] Family : Order #: [id number] CLICK HERE TO VIEW EXAM RADIOLOGY REPORT [...] stomach cancer at age 56. LOCATION: [facility] BREAST COMPOSITION: Scattered areas fibroglandular density. [...] M.D. on 09/02/2022 at 12:32 Normal [facility] MRI KNEE RT WO [...] by: MANUEL GOMEZ Date: 2022-04-01 08:24 Normal [facility] PNEUMOCOCCAL IGG ABS, 23 SER OTYPESon 03-21-2022 Pneumococcal Interpretation See Note [facility] S. pneumoniae 1 IgG (S) [Mass/Vol] 0.27 ug/mL [facility] S. pneumoniae 12 IgG (S) [Mass/Vol] 0.08 ug/mL [facility] S. pneumoniae 14 IgG (S) [Mass/Vol] 0.19 ug/mL [facility] S. pneumoniae 17 IgG (S) [Mass/Vol] 1.72 ug/mL [facility] S. pneumoniae 19 IgG (S) [Mass/Vol] 1.52 ug/mL [facility] S. pneumoniae 2 IgG (S) [Mass/Vol] 0.44 ug/mL [facility] S. pneumoniae 20 IgG (S) [Mass/Vol] 1.53 ug/mL [facility] S. pneumoniae 22 IgG (S) [Mass/Vol] 0.99 ug/mL [facility] S. pneumoniae 23 IgG (S) [Mass/Vol] 0.14 ug/mL [facility] S. pneumoniae 3 IgG (S) [Mass/Vol] 0.36 ug/mL [facility] S. pneumoniae 34 IgG (S) [Mass/Vol] 5.77 ug/mL [facility] S. pneumoniae 4 IgG (S) [Mass/Vol] 0.06 ug/mL [facility] S. pneumoniae 43 IgG (S) [Mass/Vol] 0.93 ug/mL [facility] S. pneumoniae 5 IgG (S) [Mass/Vol] 0.89 ug/mL [facility] S. pneumoniae 8 IgG (S) [Mass/Vol] 0.58 ug/mL [facility] S. pneumoniae 9 IgG (S) [Mass/Vol] 0.4 ug/mL [facility] S. pneumoniae Guinean type 15B IgG (S) [Mass/Vol] 8.27 ug/mL [facility] S. pneumoniae Guinean type 18C IgG (S) [Mass/Vol] 0.39 ug/mL [facility] S. pneumoniae Guinean type 19A IgG (S) [Mass/Vol] 17.72 ug/mL [facility] S. pneumoniae Guinean type 33F IgG (S) [Mass/Vol] 3.04 ug/mL [facility] S. pneumoniae Guinean type 6B IgG (S) [Mass/Vol] 0.82 ug/mL [facility] S. pneumoniae Guinean type 7F IgG (S) [Mass/Vol] 0.34 ug/mL [facility] S. pneumoniae Guinean type 9V IgG (S) [Mass/Vol] 0.78 ug/mL [facility] XR KNEE RT 4V or >on [...] by: KRISTINA GARRETT Date: 2022-03-21 16:47 Normal [facility] DIPHTHER/TETANUS ABon 2021 C. diphtheriae IgG Qn (S) 0.1 IU/mL [facility] C. tetani toxoid IgG IA Qn 1 IU/mL [facility] IGA BLDon 03-18-2022 IgA [Mass/Vol] 182 mg/dL 70 - 400 mg/dL [facility] IGE BLDon 03-18-2022 IgE Qn 12.3 kU/l <114.0 kU/l [facility] IGGon 03-18-2022 IgG [Mass/Vol] 618 mg/dL Low 700 - 1,600 mg/dL [facility] IGMon 03-18-2022 IgM [Mass/Vol] 514 mg/dL High 40 - 230 mg/dL [facility] Immunodeficiency panel FC (B ld)on 03-18-2022 CD3 cells (Bld) [#/Vol] 2841 cells/uL High 958 - 2,388 cells/uL [facility] CD3 cells/100 cells (Bld) 81 % 60 - 89 % [facility] CD3+CD4+ (T4 helper) cells (Bld) [#/Vol] 1621 cells/uL 533 - 1,674 cells/uL [facility] CD3+CD4+ (T4 helper) cells/100 cells (Bld) 46 % 34 - 61 % [facility] CD3+CD4+ (T4 helper) cells/CD3+CD8+ (T8 suppressor cells) cells (Bld) [# ratio] 1.55 % 1.10 - 3.25 [facility] CD3+CD8+ (T8 suppressor cells) cells (Bld) [#/Vol] 1049 cells/uL High 175 - 958 cells/uL [facility] CD3+CD8+ (T8 suppressor cells) cells/100 cells (Bld) 30 % 10 - 41 % [facility] CD3-CD16+CD56+ (Natural killer) cells (Bld) [#/Vol] 193 cells/uL 102 - 565 cells/uL [facility] CD3-CD16+CD56+ (Natural killer) cells/100 cells (Bld) 5 % 5 - 25 % [facility] CD3-CD19+ cells (Bld) [#/Vol] 475 cells/uL 75 - 660 cells/uL [facility] CD3-CD19+ cells/100 cells (Bld) 13 % 5 - 22 % [facility] CBC W Auto Differential pane l (Bld)on 03-17-2022 Basophils (Bld) [#/Vol] 0.07 10*3/uL <0.11 k/uL [facility] Basophils/100 WBC (Bld) 0.6 % [facility] Differential cell count method Nom (Bld) Auto [facility] Eosinophils (Bld) [#/Vol] 0.18 10*3/uL <0.46 k/uL [facility] Eosinophils/100 WBC (Bld) 1.6 % [facility] Erythrocyte distribution width (RBC) [Ratio] 14.6 % 11.5 - 15.0 % [facility] Hematocrit (Bld) [Volume fraction] 40.5 % 36.0 - 46.0 % [facility] Hemoglobin (Bld) [Mass/Vol] 13.0 g/dL 11.5 - 15.5 g/dL [facility] Immature granulocytes (Bld) [#/Vol] 0.06 10*3/uL <0.10 k/uL [facility] Immature granulocytes/100 WBC (Bld) 0.5 % [facility] Lymphocytes (Bld) [#/Vol] 2.97 10*3/uL 1.00 - 4.00 k/uL [facility] Lymphocytes/100 WBC (Bld) 26.9 % [facility] MCH (RBC) [Entitic mass] 28.4 pg 26.0 - 34.0 pg [facility] MCHC (RBC) [Mass/Vol] 32.1 g/dL 30.5 - 36.0 g/dL [facility] MCV (RBC) [Entitic vol] 88.4 fL 80.0 - 100.0 fL [facility] Monocytes (Bld) [#/Vol] 0.79 10*3/uL <0.87 k/uL [facility] Monocytes/100 WBC (Bld) 7.2 % [facility] Neutrophils (Bld) [#/Vol] 6.97 10*3/uL 1.45 - 7.50 k/uL [facility] Neutrophils/100 WBC (Bld) 63.2 % [facility] Nucleated RBC (Bld) [#/Vol] <0.01 k/uL [facility] Nucleated RBC/100 WBC (Bld) [Ratio] 0.0 /100 WBC [facility] Platelet mean volume (Bld) [Entitic vol] 9.9 fL 9.0 - 12.7 fL [facility] Platelets (Bld) [#/Vol] 314 10*3/uL 150 - 400 k/uL [facility] RBC (Bld) [#/Vol] 4.58 10*6/uL 3.90 - 5.2 0 m/uL [facility] WBC (Bld) [#/Vol] 11.04 10*3/uL High 3.70 - 11 .00 k/uL [facility] ECHOCARDIO M/2D COMPLETEon ECHOCARDIO M/2D COMPLETE Patient: ARIADNA HALEY Exam Date: 03/12/2022 : 1980 Gender:F Ordering : DR MANUEL FERRIS . Admission #: [id number] Family : Order #: [id number] CLICK HERE TO VIEW EXAM ECHOCARDIOGRAM REPORT [...] M.D. on 03/16/2022 at 16:47 Normal [facility] INSULINon 03-11-2022 Insulin 17.8 uIU/mL Normal 2.6-24.9 [facility] Comment on above: Performed By: #### C BC #### [facility] [address] [place] [address] Dr. Manda York CBC AUTO DIFFon 03-09-2022 BASO # 0.1 103/ul Normal 0.0-0.1 [facility] Comment on above: Performed By: #### C BC #### [facility] [address] [address] [address] Manda York Basophils/100 WBC (Bld) 0.4 % Normal 0.2-2.0 [facility] Comment on above: Performed By: #### C BC #### [facility] [address] [address] [address] Manda York EO # 0.2 103/ul Normal 0.0-0.7 [facility] Comment on above: Performed By: #### C BC #### [facility] [address] [place] [address] Dr. Manda York Eosinophils/100 WBC (Bld) 1.2 % Normal 0.9-7.0 [facility] Comment on above: Performed By: #### C BC #### [facility] [address] [place] [address] Dr. Manda York Erythrocyte distribution width (RBC) [Ratio] 14.6 % Normal 11.0-15.0 [facility] Comment on above: Performed By: #### C BC #### [facility] [address] [place] [address] Dr. Manda York Hematocrit (Bld) [Volume fraction] 39.2 % Normal 36.0-48.0 [facility] Comment on above: Performed By: #### C BC #### [facility] [address] [place] [address] Dr. Manda York Hemoglobin (Bld) [Mass/Vol] 12.7 g/dL Normal 12.0-16.0 [facility] Comment on above: Performed By: #### C BC #### [facility] [address] [place] [address] Dr. Manda York IG # 0.06 10e3/ul Critically high 0.00-0.03 [facility] Comment on above: Performed By: #### C BC #### [facility] [address] [place] [address] Dr. Manda York IG % 0.5 % Normal 0.0-0.5 [facility] Comment on above: Performed By: #### C BC #### [facility] [address] [place] [address] Dr. Manda York LYMPH # 3.7 103/ul Normal 1.2-3.8 [facility] Comment on above: Performed By: #### C BC #### [facility] [address] [place] [address] Dr. Manda York Lymphocytes/100 WBC (Bld) 31.0 % Normal 20.5-60.0 [facility] Comment on above: Performed By: #### C BC #### [facility] [address] [place] [address] Dr. Manda York MANUAL DIFF REQ NO Normal [facility] Comment on above: Performed By: #### C BC #### [facility] [address] [place] [address] Dr. Manda York MCH (RBC) [Entitic mass] 28.9 pg Normal 26.7-34.0 [facility] Comment on above: Performed By: #### C BC #### [facility] [address] [place] [address] Dr. Manda York MCHC (RBC) [Mass/Vol] 32.4 g/dL Normal 29.9-35.2 [facility] Comment on above: Performed By: #### C BC #### [facility] [address] [place] [address] Dr. Manda York MCV (RBC) [Entitic vol] 89.1 fL Normal 81.0-99.0 [facility] Comment on above: Performed By: #### C BC #### [facility] [address] [place] [address] Dr. Manda York MONO # 0.7 103/ul Normal 0.3-0.8 [facility] Comment on above: Performed By: #### C BC #### [facility] [address] [place] [address] Dr. Manda York Monocytes/100 WBC (Bld) 5.8 % Normal 1.7-12.0 [facility] Comment on above: Performed By: #### C BC #### [facility] [address] [place] [address] Dr. Manda York NEUT # 7.3 103/ul Critically high 1.4-6.5 [facility] Comment on above: Performed By: #### C BC #### [facility] [address] [place] [address] Dr. Manda York Neutrophils/100 WBC (Bld) 61.1 % Normal 43.0-75.0 [facility] Comment on above: Performed By: #### C BC #### [facility] [address] [place] [address] Dr. Manda York Platelet mean volume (Bld) [Entitic vol] 9.7 fL Normal 9.5-13.5 [facility] Comment on above: Performed By: #### C BC #### [facility] [address] [place] [address] Dr. Manda York PLT 297 103/ul Normal 150-450 [facility] Comment on above: Performed By: #### C BC #### [facility] [address] [place] [address] Dr. Manda York RBC 4.40 106/ul Normal 4.20-5.40 [facility] Comment on above: Performed By: #### C BC #### [facility] [address] [place] [address] Dr. Manda York WBC 12.0 103/ul Critically high 4.0-11.0 [facility] Comment on above: Performed By: #### C BC #### [facility] [address] [place] [address] Dr. Manda York FREE THYROXINE INDEX T7on FTI 3.81 Normal 1.30-4.50 [facility] Comment on above: Performed By: #### U AMIC #### [facility] [address] [place] [address] Dr. Manda York T3U 34.0 % Normal 30.0-39.0 [facility] Comment on above: Performed By: #### U AMIC #### [facility] [address] [place] [address] Dr. Manda York T4 [Mass/Vol] 11.20 ug/dL Normal 4.80-13.90 [facility] Comment on above: Performed By: #### U AMIC #### [facility] [address] [address] [address] Manda York GLYCOHEMOGLOBIN A1Con 2021 ADA RECOMMENDATION SEE BELOW Normal [facility] Comment on above: Result Comment: ADA RECOMMENDED LIMIT 4.0 - 6.0 ADA THERAPEUTIC TARGET < 7.0 ACTION SUGGESTED > 7.0 Performed By: #### S LUIGI MELO #### [facility] [address] [address] [address] Manda York Glucose [Mass/Vol] 117 mg/dL Normal [facility] Comment on above: Performed By: #### S LEANN MELOC #### [facility] [address] [place] [address] Dr. Manda York HbA1c (Bld) [Mass fraction] 5.7 % Normal 4.5-6.2 [facility] Comment on above: Performed By: #### S LEANN MELOC #### [facility] [address] [address] [address] Manda York IRONon 03-09-2022 Iron [Mass/Vol] 61.0 ug/dL Normal 50.0-170.0 [facility] Comment on above: Performed By: #### C BC #### [facility] [address] [place] [address] Dr. Manda York LIPID PROFILEon 03-09-2022 CHOL-HDL RATIO NORM SEE BELOW Normal [facility] Comment on above: Result Comment: 3.3 - 4.4 LOW RISK 4.4 - 7.1 AVERAGE RISK 7.1 - 11.0 MODERATE RISK >11.0 HIGH RISK Performed By: #### U AMIC #### [facility] [address] [place] [address] Dr. Manda York Cholesterol [Mass/Vol] 260 mg/dL Critically high <=200 [facility] Comment on above: Performed By: #### U AMIC #### [facility] [address] [address] [address] Manda York Cholesterol in HDL [Mass/Vol] 38 mg/dL Critically low 40-60 [facility] Comment on above: Performed By: #### U AMIC #### [facility] [address] [address] [address] Manda York Cholesterol in LDL [Mass/Vol] 170.8 mg/dL Normal [facility] Comment on above: Performed By: #### U AMIC #### [facility] [address] [address] [address] Manda York Cholesterol.total/Chol esterol in HDL [Mass ratio] 6.8 {ratio} Normal [facility] Comment on above: Performed By: #### U AMIC #### [facility] [address] [address] [address] Manda York HDL NORMAL > or = 60 mg/dl - LO W CARDIOVASCULAR RISK <40 mg/dl - HIGH CARDIOVASCULAR RISK Normal [facility] Comment on above: Performed By: #### U AMIC #### [facility] [address] [address] [address] Manda York LDL CALC NORMAL SEE BELOW Normal [facility] Comment on above: Result Comment: <100 mg/dl OPTIMAL 100 - 129 mg/dl NEAR OR ABOVE OPTIMAL 130 - 159 mg/dl BORDERLINE HIGH 160 - 189 mg/dl HIGH >190 mg/dl VERY HIGH Performed By: #### U AMIC #### [facility] [address] [address] [address] Manda York Triglyceride [Mass/Vol] 256 mg/dL Critically high <=150 [facility] Comment on above: Performed By: #### U AMIC #### [facility] [address] [address] [address] Manda York VLDL CALC 51.2 mg/dL Normal [facility] Comment on above: Performed By: #### U AMIC #### [facility] [address] [place] [address] Dr. Manda York PROF 14(COMP METB)on 022 Albumin [Mass/Vol] 3.8 g/dL Normal 3.4-5.0 [facility] Comment on above: Performed By: #### U AMIC #### [facility] [address] [address] [address] Manda York Albumin/Globulin [Mass ratio] 1.0 {ratio} Normal [facility] Comment on above: Performed By: #### U AMIC #### [facility] [address] [address] [address] Manda York ALP [Catalytic activity/Vol] 66 U/L Normal 46-116 [facility] Comment on above: Performed By: #### U AMIC #### [facility] [address] [address] [address] Manda York ALT [Catalytic activity/Vol] 27 U/L Normal 14-59 [facility] Comment on above: Performed By: #### U AMIC #### [facility] [address] [address] [address] Manda York Anion gap [Moles/Vol] 11.8 mmol/L Normal [facility] Comment on above: Performed By: #### U AMIC #### [facility] [address] [address] [address] Manda York AST [Catalytic activity/Vol] 9 U/L Critically low 15-37 [facility] Comment on above: Performed By: #### U AMIC #### [facility] [address] [address] [address] Manda York Bilirubin [Mass/Vol] 0.2 mg/dL Normal 0.2-1.0 [facility] Comment on above: Performed By: #### U AMIC #### [facility] [address] [address] [address] Manda York Calcium [Mass/Vol] 9.1 mg/dL Normal 8.5-10.1 [facility] Comment on above: Performed By: #### U AMIC #### [facility] [address] [address] [address] Manda York Chloride [Moles/Vol] 101 mmol/L Normal 98-107 [facility] Comment on above: Performed By: #### U AMIC #### [facility] [address] [address] [address] Manda York CO2 [Moles/Vol] 26.1 mmol/L Normal 21.0-32.0 [facility] Comment on above: Performed By: #### U AMIC #### [facility] [address] [address] [address] Manda York Creatinine [Mass/Vol] 0.80 mg/dL Normal 0.55-1.02 [facility] Comment on above: Performed By: #### U AMIC #### [facility] [address] [address] [address] Manda York EGFR-AF UZBEK >60 Normal >=60 [facility] Comment on above: Performed By: #### U AMIC #### [facility] [address] [address] [address] Manda York EGFR-NON AF UZBEK >60 Normal >=60 [facility] Comment on above: Performed By: #### U AMIC #### [facility] [address] [address] [address] Manda York Globulin (S) [Mass/Vol] 3.8 g/dL Normal [facility] Comment on above: Performed By: #### U AMIC #### [facility] [address] [address] [address] Manda York Glucose [Mass/Vol] 93 mg/dL Normal 74-106 [facility] Comment on above: Performed By: #### U AMIC #### [facility] [address] [address] [address] Manda York Potassium [Moles/Vol] 3.9 mmol/L Normal 3.5-5.1 [facility] Comment on above: Performed By: #### U AMIC #### [facility] [address] [address] [address] Manda York Protein [Mass/Vol] 7.6 g/dL Normal 6.4-8.2 [facility] Comment on above: Performed By: #### U AMIC #### [facility] [address] [address] [address] Manda York Sodium [Moles/Vol] 135 mmol/L Critically low 136-145 [facility] Comment on above: Performed By: #### U AMIC #### [facility] [address] [address] [address] Manda York Urea nitrogen [Mass/Vol] 10.0 mg/dL Normal 7.0-18.0 [facility] Comment on above: Performed By: #### U AMIC #### [facility] [address] [address] [address] Manda York Urea nitrogen/Creatinine [Mass ratio] 12.5 mg/mg Normal [facility] Comment on above: Performed By: #### U AMIC #### [facility] [address] [address] [address] Manda York TSHon 03-09-2022 TSH 0.610 uIU/mL Normal 0.358-3.740 [facility] Comment on above: Performed By: #### U AMIC #### [facility] [address] [place] [address] Dr. Manda York B2 MICROGLOBULIN Bon 022 Gdva-6-Edegtnxnuqwmt [Mass/Vol] 1.8 ug/mL 0.8 - 2.4 mg/L [facility] FERRITIN BLDon 03-05-2022 Ferritin [Mass/Vol] 33.2 ng/mL 14.7 - 2 05.1 ng/mL [facility] FOLATE SERUMon 03-05-2022 Folate [Mass/Vol] 6.6 ng/mL >4.7 ng/mL [facility] Iron and Iron binding capaci ty panelon 03-05-2022 Iron [Mass/Vol] 49 ug/dL 41 - 186 ug/dL [facility] Iron binding capacity [Mass/Vol] 392 ug/dL High 232 - 386 ug/dL [facility] Iron/TIBC [Molar ratio] 12.5 % Low 15.0 - 57.0 % [facility] CBC W Auto Differential pane l (Bld)on 03-04-2022 Basophils (Bld) [#/Vol] 0.07 10*3/uL <0.11 k/uL [facility] Basophils/100 WBC (Bld) 0.6 % [facility] Differential cell count method Nom (Bld) Auto [facility] Eosinophils (Bld) [#/Vol] 0.19 10*3/uL <0.46 k/uL [facility] Eosinophils/100 WBC (Bld) 1.7 % [facility] Erythrocyte distribution width (RBC) [Ratio] 14.7 % 11.5 - 15.0 % [facility] Hematocrit (Bld) [Volume fraction] 40.0 % 36.0 - 46.0 % [facility] Hemoglobin (Bld) [Mass/Vol] 13.0 g/dL 11.5 - 15.5 g/dL [facility] Immature granulocytes (Bld) [#/Vol] 0.07 10*3/uL <0.10 k/uL [facility] Immature granulocytes/100 WBC (Bld) 0.6 % [facility] Lymphocytes (Bld) [#/Vol] 3.31 10*3/uL 1.00 - 4.00 k/uL [facility] Lymphocytes/100 WBC (Bld) 30.2 % [facility] MCH (RBC) [Entitic mass] 28.9 pg 26.0 - 34.0 pg [facility] MCHC (RBC) [Mass/Vol] 32.5 g/dL 30.5 - 36.0 g/dL [facility] MCV (RBC) [Entitic vol] 88.9 fL 80.0 - 100.0 fL [facility] Monocytes (Bld) [#/Vol] 0.70 10*3/uL <0.87 k/uL [facility] Monocytes/100 WBC (Bld) 6.4 % [facility] Neutrophils (Bld) [#/Vol] 6.63 10*3/uL 1.45 - 7.50 k/uL [facility] Neutrophils/100 WBC (Bld) 60.5 % [facility] Nucleated RBC (Bld) [#/Vol] <0.01 k/uL [facility] Nucleated RBC/100 WBC (Bld) [Ratio] 0.0 /100 WBC [facility] Platelet mean volume (Bld) [Entitic vol] 9.6 fL 9.0 - 12.7 fL [facility] Platelets (Bld) [#/Vol] 355 10*3/uL 150 - 400 k/uL [facility] RBC (Bld) [#/Vol] 4.50 10*6/uL 3.90 - 5.2 0 m/uL [facility] WBC (Bld) [#/Vol] 10.97 10*3/uL 3.70 - 11 .00 k/uL [facility] Calcium.ionized [Moles/Vol]o n 03-04-2022 Calcium.ionized (Bld) [Mass/Vol] 1.26 mmol/L 1.08 - 1.30 mmol/L [facility] Calcium.ionized adjusted to pH 7.4 (Bld) [Moles/Vol] 1.25 mmol/L 1.08 - 1.30 mmol/L [facility] Comprehensive metabolic 2000 panelon 03-04-2022 Albumin [Mass/Vol] 4.3 g/dL 3.9 - 4.9 g/dL [facility] ALP [Catalytic activity/Vol] 70 U/L 34 - 123 U/L [facility] ALT [Catalytic activity/Vol] 26 U/L 7 - 38 U/L [facility] Anion gap [Moles/Vol] 7 mmol/L Low 9 - 18 mmol/L [facility] AST [Catalytic activity/Vol] 12 U/L Low 13 - 35 U/L [facility] Bilirubin [Mass/Vol] 0.2 mg/dL 0.2 - 1 .3 mg/dL [facility] Calcium [Mass/Vol] 9.3 mg/dL 8.5 - 10. 2 mg/dL [facility] Chloride [Moles/Vol] 103 mmol/L 97 - 10 5 mmol/L [facility] CO2 [Moles/Vol] 28 mmol/L 22 - 30 mmol/L [facility] Creatinine [Mass/Vol] 0.69 mg/dL 0.58 - 0.96 mg/dL [facility] Estimated Glomerular Filtration Rate 112 mL/min/1.73m >=60 mL/min/1.73m [facility] Glucose [Mass/Vol] 100 mg/dL High 74 - 99 mg/dL [facility] Potassium [Moles/Vol] 3.9 mmol/L 3.7 - 5.1 mmol/L [facility] Protein [Mass/Vol] 7.0 g/dL 6.3 - 8.0 g/dL [facility] Sodium [Moles/Vol] 138 mmol/L 136 - 144 mmol/L [facility] Urea nitrogen [Mass/Vol] 12 mg/dL 7 - 21 mg/dL [facility] LD LACTATE DEHYDROon 022 LDH [Catalytic activity/Vol] 135 U/L 135 - 214 U/L [facility] PHOSPHORUS INORGANICon 03-04 Phosphate [Mass/Vol] 3.2 mg/dL 2.7 - 4 .8 mg/dL [facility] URIC ACID BLOODon 03-04-2022 Urate [Mass/Vol] 5.2 mg/dL 2.5 - 6.6 mg/dL [facility] IMMUNOGLOBULINS IGA/IGM/IGG/ IGE QUANTITAon 02-20-2022 Immunoglobulin A, Qn, Serum 189 mg/dL Normal 87-352 [facility] Comment on above: Result Comment: Perf ormed at: CB Performed By: #### S LORIE THYLC #### [facility] [address] [address] [address] Manda York Immunoglobulin E, Total 10 IU/mL Normal 6-495 [facility] Comment on above: Result Comment: Perf ormed at: BN Performed By: #### Lucinda MELO, THYLC #### [facility] [address] [address] [address] Manda York Immunoglobulin G, Qn, Serum 598 mg/dL Normal 586-1602 [facility] Comment on above: Result Comment: Perf ormed at: CB Performed By: #### Lucinda MELO, THYLC #### [facility] [address] [place], [place] [address] Dr. Manda York Immunoglobulin M, Qn, Serum 493 mg/dL Critically high 26-217 [facility] Comment on above: Result Comment: Perf ormed at: CB Performed By: #### S LORIE, THYLC #### [facility] [address] [address] [address] Manda York CHRISTIAN by IFAon 02-19-2022 Antinuclear Antibodies, IFA Negative Normal [facility] Comment on above: Result Comment: Nega tive <1:80 Borderline 1:80 Positive >1:80 ICAP nomenclature: [id number] For more information about Hep-2 cell patterns use ANApatterns.org, the official website for the International Consensus on Antinuclear Antibody (CHRISTIAN) Patterns (ICAP). Performed By: #### S LORIE [facility] #### [facility] [address] [place] [address] Dr. Manda York THYROID ANTIBODIESon 022 Thyroglobulin Antibody <1.0 Normal 0.0-0.9 [facility] Comment on above: Result Comment: Thyr oglobulin Antibody measured by [employer] Methodology Performed By: #### F T4 #### [facility] [address] [place] [address] Dr. Manda York Thyroid Peroxidase (TPO) Ab <8 Normal 0-34 [facility] Comment on above: Performed By: #### F T4 #### [facility] [address] [place] [address] Dr. Manda York PROTEIN ELECTROPHERESISon Albumin [Mass/Vol] 3.2 g/dL Normal 2.9-4.4 [facility] Comment on above: Performed By: #### F T4 #### [facility] [address] [place] [address] Dr. Manda York Albumin/Globulin [Mass ratio] 1.0 {ratio} Normal 0.7-1.7 [facility] Comment on above: Performed By: #### F T4 #### [facility] [address] [place] [address] Dr. Manda York Olfur-6-Nstupsps 0.2 g/dL Normal 0.0-0.4 [facility] Comment on above: Performed By: #### F T4 #### [facility] [address] [place] [address] Dr. Manda York Ucvnx-3-Gcdoqtsg 0.9 g/dL Normal 0.4-1.0 [facility] Comment on above: Performed By: #### F T4 #### [facility] [address] [place] [address] Dr. Manda York Beta Globulin 1.2 g/dL Normal 0.7-1.3 [facility] Comment on above: Performed By: #### F T4 #### [facility] [address] [place], [place] [id number] Dr. Manda York Gamma Globulin 0.9 g/dL Normal 0.4-1.8 [facility] Comment on above: Performed By: #### F T4 #### [facility] [address] [place] [address] Dr. Manda York Globulin (S) [Mass/Vol] 3.2 g/dL Normal 2.2-3.9 [facility] Comment on above: Performed By: #### F T4 #### [facility] [address] [place] [address] Dr. Manda York M-Jose De Jesus Not Observed Normal Not Observed [facility] Comment on above: Performed By: #### F T4 #### [facility] [address] [place] [address] Dr. Manda York PDF . Normal [facility] Comment on above: Performed By: #### F T4 #### [facility] [address] [place] [address] Dr. Manda York Please note: Comment Normal [facility] Comment on above: Result Comment: Prot ein electrophoresis scan will follow via computer, mail, or vp of technology delivery. Performed By: #### F T4 #### [facility] [address] [place] [address] Dr. Manda York Protein [Mass/Vol] 6.4 g/dL Normal 6.0-8.5 [facility] Comment on above: Performed By: #### F T4 #### [facility] [address] [place] [address] Dr. Manda York SLE PROFILE Aon 02-16-2022 Anti-DNA (DS) Ab Qn 9 IU/mL Normal 0-9 [facility] Comment on above: Result Comment: Nega tive <5 Equivocal 5 - 9 Positive >9 Performed By: #### S LUIGI MELO #### [facility] [address] [place] [address] Dr. Manda York Antichromatin Antibodies <0.2 Normal 0.0-0.9 [facility] Comment on above: Performed By: #### S LUIGI MELO #### [facility] [address] [place] [address] Dr. Manda York RA Latex Turbid. <10.0 Normal <14.0 [facility] Comment on above: Performed By: #### S LORIE [facility] #### [facility] [address] [place] [address] Dr. Manda York POSTAL WORKER Antibodies <0.2 Normal 0.0-0.9 [facility] Comment on above: Performed By: #### Lucinda MELO [facility] #### [facility] [address] [place] [address] Dr. Manda York Sjogren's Anti-SS-A <0.2 Normal 0.0-0.9 [facility] Comment on above: Performed By: #### S LORIE [facility] #### [facility] [address] [place] [address] Dr. Manda Solorzanoogryaniv'lucinda Anti-SS-B <0.2 Normal 0.0-0.9 [facility] Comment on above: Performed By: #### Lucinda MELO [facility] #### [facility] [address] [place] [address] Dr. Manda York Schneider Antibodies <0.2 Normal 0.0-0.9 [facility] Comment on above: Performed By: #### Lucinda MELO [facility] #### [facility] [address] [place] [address] Dr. Manda York ANTISTREPTOLYSIN O AB (ASO)o n 02-15-2022 Antistreptolysin O Ab 49.6 IU/mL Normal 0.0-200.0 [facility] Comment on above: Performed By: #### A SOAB #### [facility] [address] [place] [address] Dr. Manda York MICROALBUMIN URINEon 022 Albumin, Urine <3.0 Normal Not Estab. [facility] Comment on above: Result Comment: Ve rified by repeat analysis Performed By: #### C BC #### [facility] [address] [place] [address] Dr. Manda York T4, T3U, FTI LABCORPon 02-15 Free Thyroxine Index 2.6 Normal 1.2-4.9 [facility] Comment on above: Performed By: #### LUIGI PATRICK #### [facility] [address] [place] [address] Dr. Manda York T3 Uptake 26 % Normal 24-39 [facility] Comment on above: Performed By: #### LUIGI PATRICK #### [facility] [address] [place] [address] Dr. Manda York T4 [Mass/Vol] 9.9 ug/dL Normal 4.5-12.0 [facility] Comment on above: Performed By: #### LUIGI PATRICK #### [facility] [address] [place] [address] Dr. Manda York CBC AUTO DIFFon 02-14-2022 BASO # 0.1 103/ul Normal 0.0-0.1 [facility] Comment on above: Performed By: #### U AMIC #### [facility] [address] [place] [address] Dr. Manda York Basophils/100 WBC (Bld) 0.6 % Normal 0.2-2.0 [facility] Comment on above: Performed By: #### U AMIC #### [facility] [address] [place] [address] Dr. Manda York EO # 0.3 103/ul Normal 0.0-0.7 [facility] Comment on above: Performed By: #### U AMIC #### [facility] [address] [place] [address] Dr. Manda York Eosinophils/100 WBC (Bld) 3.4 % Normal 0.9-7.0 [facility] Comment on above: Performed By: #### U AMIC #### [facility] [address] [place] [address] Dr. Manda York Erythrocyte distribution width (RBC) [Ratio] 14.6 % Normal 11.0-15.0 [facility] Comment on above: Performed By: #### U AMIC #### [facility] [address] [address] [address] Manda York Hematocrit (Bld) [Volume fraction] 39.1 % Normal 36.0-48.0 [facility] Comment on above: Performed By: #### U AMIC #### [facility] [address] [place] [address] Dr. Manda York Hemoglobin (Bld) [Mass/Vol] 12.4 g/dL Normal 12.0-16.0 [facility] Comment on above: Performed By: #### U AMIC #### [facility] [address] [place] [address] Dr. Manda York IG # 0.03 10e3/ul Normal 0.00-0.03 [facility] Comment on above: Performed By: #### U AMIC #### [facility] [address] [place] [address] Dr. Manda York IG % 0.3 % Normal 0.0-0.5 [facility] Comment on above: Performed By: #### U AMIC #### [facility] [address] [place] [address] Dr. Manda York LYMPH # 3.6 103/ul Normal 1.2-3.8 [facility] Comment on above: Performed By: #### U AMIC #### [facility] [address] [place] [address] Dr. Manda York Lymphocytes/100 WBC (Bld) 39.9 % Normal 20.5-60.0 [facility] Comment on above: Performed By: #### U AMIC #### [facility] [address] [place] [address] Dr. Manda York MANUAL DIFF REQ NO Normal [facility] Comment on above: Performed By: #### U AMIC #### [facility] [address] [place] [address] Dr. Manda York MCH (RBC) [Entitic mass] 28.4 pg Normal 26.7-34.0 [facility] Comment on above: Performed By: #### U AMIC #### [facility] [address] [address] [address] Manda York MCHC (RBC) [Mass/Vol] 31.7 g/dL Normal 29.9-35.2 [facility] Comment on above: Performed By: #### U AMIC #### [facility] [address] [address] [address] Manda York MCV (RBC) [Entitic vol] 89.7 fL Normal 81.0-99.0 [facility] Comment on above: Performed By: #### U AMIC #### [facility] [address] [address] [address] Manda York MONO # 0.7 103/ul Normal 0.3-0.8 [facility] Comment on above: Performed By: #### U AMIC #### [facility] [address] [place] [address] Dr. Manda oYrk Monocytes/100 WBC (Bld) 7.3 % Normal 1.7-12.0 [facility] Comment on above: Performed By: #### U AMIC #### [facility] [address] [address] [address] Manda York NEUT # 4.4 103/ul Normal 1.4-6.5 [facility] Comment on above: Performed By: #### U AMIC #### [facility] [address] [place] [address] Dr. Manda York Neutrophils/100 WBC (Bld) 48.5 % Normal 43.0-75.0 [facility] Comment on above: Performed By: #### U AMIC #### [facility] [address] [address] [address] Manda York Platelet mean volume (Bld) [Entitic vol] 10.1 fL Normal 9.5-13.5 [facility] Comment on above: Performed By: #### U AMIC #### [facility] [address] [address] [address] Manda York PLT 310 103/ul Normal 150-450 [facility] Comment on above: Performed By: #### U AMIC #### [facility] [address] [address] [address] Manda York RBC 4.36 106/ul Normal 4.20-5.40 [facility] Comment on above: Performed By: #### U AMIC #### [facility] [address] [place] [address] Dr. Manda York WBC 9.0 103/ul Normal 4.0-11.0 [facility] Comment on above: Performed By: #### U AMIC #### [facility] [address] [place] [address] Dr. Manda York CRPon 02-14-2022 CRP [Mass/Vol] mg/L Normal <=1.0 [facility] Comment on above: Performed By: #### U AMIC #### [facility] [address] [place] [address] Dr. Manda York CULTURE URINEon 02-14-2022 CULTURE URINE Culture Observations : LIGHT GROWTH OF MIXED GENITAL AMBER. NO POTENTIAL PATHOGENS SEEN. Normal [facility] Comment on above: Performed By: #### C BC #### [facility] [address] [place] [address] Dr. Manda York PROF 14(COMP METB)on 022 Albumin [Mass/Vol] 3.5 g/dL Normal 3.4-5.0 [facility] Comment on above: Performed By: #### U AMIC #### [facility] [address] [place] [address] Dr. Manda York Albumin/Globulin [Mass ratio] 1.0 {ratio} Normal [facility] Comment on above: Performed By: #### U AMIC #### [facility] [address] [place] [address] Dr. Manda York ALP [Catalytic activity/Vol] 71 U/L Normal 46-116 [facility] Comment on above: Performed By: #### U AMIC #### [facility] [address] [place] [address] Dr. Manda York ALT [Catalytic activity/Vol] 46 U/L Normal 14-59 [facility] Comment on above: Performed By: #### U AMIC #### [facility] [address] [address] [address] Manda York Anion gap [Moles/Vol] 11.6 mmol/L Normal [facility] Comment on above: Performed By: #### U AMIC #### [facility] [address] [address] [address] Manda York AST [Catalytic activity/Vol] 15 U/L Normal 15-37 [facility] Comment on above: Performed By: #### U AMIC #### [facility] [address] [address] [address] Manda York Bilirubin [Mass/Vol] 0.2 mg/dL Normal 0.2-1.0 [facility] Comment on above: Performed By: #### U AMIC #### [facility] [address] [place] [address] Dr. Manda York Calcium [Mass/Vol] 8.7 mg/dL Normal 8.5-10.1 [facility] Comment on above: Performed By: #### U AMIC #### [facility] [address] [address] [address] Manda York Chloride [Moles/Vol] 104 mmol/L Normal 98-107 [facility] Comment on above: Performed By: #### U AMIC #### [facility] [address] [address] [address] Manda York CO2 [Moles/Vol] 25.1 mmol/L Normal 21.0-32.0 [facility] Comment on above: Performed By: #### U AMIC #### [facility] [address] [address] Dr. Manda York Creatinine [Mass/Vol] 0.80 mg/dL Normal 0.55-1.02 [facility] Comment on above: Performed By: #### U AMIC #### [facility] [address] [address] [address] Manda York EGFR-AF UZBEK >60 Normal >=60 [facility] Comment on above: Performed By: #### U AMIC #### [facility] [address] [address] [address] Manda York EGFR-NON AF UZBEK >60 Normal >=60 [facility] Comment on above: Performed By: #### U AMIC #### [facility] [address] [address] [address] Manda York Globulin (S) [Mass/Vol] 3.6 g/dL Normal [facility] Comment on above: Performed By: #### U AMIC #### [facility] [address] [address] [address] Manda York Glucose [Mass/Vol] 92 mg/dL Normal 74-106 [facility] Comment on above: Performed By: #### U AMIC #### [facility] [address] [address] [address] Manda York Potassium [Moles/Vol] 3.7 mmol/L Normal 3.5-5.1 [facility] Comment on above: Performed By: #### U AMIC #### [facility] [address] [address] [address] Manda oYrk Protein [Mass/Vol] 7.1 g/dL Normal 6.4-8.2 [facility] Comment on above: Performed By: #### U AMIC #### [facility] [address] [address] [address] Manda York Sodium [Moles/Vol] 137 mmol/L Normal 136-145 [facility] Comment on above: Performed By: #### U AMIC #### [facility] [address] [address] [address] Manda York Urea nitrogen [Mass/Vol] 17.0 mg/dL Normal 7.0-18.0 [facility] Comment on above: Performed By: #### U AMIC #### [facility] [address] [place] [address] Dr. Manda York Urea nitrogen/Creatinine [Mass ratio] 21.2 mg/mg Normal [facility] Comment on above: Performed By: #### U AMIC #### [facility] [address] [place] [address] Dr. Manda York SED RATE WESTERGRENon 2021 SED RATE 40 mm/hr Critically high <=20 [facility] Comment on above: Performed By: #### S EDR #### [facility] [address] [place] [address] Dr. Manda York TSHon 02-14-2022 TSH 1.155 uIU/mL Normal 0.358-3.740 [facility] Comment on above: Performed By: #### U AMIC #### [facility] [address] [place] [address] Dr. Manda York UA RANDOM W/MICROSCOPICon BACTERIA NONE SEEN Normal NONE SEEN [facility] Comment on above: Performed By: #### U AMIC #### [facility] [address] [place] [address] Dr. Manda York Bilirubin Ql (U) Negative Normal NEGATIVE [facility] Comment on above: Performed By: #### U AMIC #### [facility] [address] [place] [address] Dr. Manda York CAST NONE SEEN Normal NONE SEEN [facility] Comment on above: Performed By: #### U AMIC #### [facility] [address] [place] [address] Dr. Manda York Clarity (U) CLEAR Normal CLEAR [facility] Comment on above: Performed By: #### U AMIC #### [facility] [address] [place] [address] Dr. Manda York Color (U) LT. YELLOW Normal YELLOW [facility] Comment on above: Performed By: #### U AMIC #### [facility] [address] [place] [address] Dr. Manda York Crystals LM Nom (Urine sed) NONE SEEN Normal NONE SEEN [facility] Comment on above: Performed By: #### U AMIC #### [facility] [address] [place] [address] Dr. Manda York Epithelial cells LM Ql (Urine sed) RARE Normal NONE SEEN /RARE [facility] Comment on above: Performed By: #### U AMIC #### [facility] [address] [address] [address] Manda York Glucose Ql (U) Negative Normal NEGATIVE [facility] Comment on above: Performed By: #### U AMIC #### [facility] [address] [address] [address] Manda York Hemoglobin Ql (U) Negative Normal NEGATIVE [facility] Comment on above: Performed By: #### U AMIC #### [facility] [address] [address] [address] Manda York Ketones Ql (U) Negative Normal NEGATIVE [facility] Comment on above: Performed By: #### U AMIC #### [facility] [address] [address] [address] Manda York LEUKOCYTES Negative Normal NEGATIVE [facility] Comment on above: Performed By: #### U AMIC #### [facility] [address] [address] [address] Manda York MUCOUS NONE SEEN Normal NONE SEEN [facility] Comment on above: Performed By: #### U AMIC #### [facility] [address] [address] [address] Manda York Nitrite Ql (U) Negative Normal NEGATIVE [facility] Comment on above: Performed By: #### U AMIC #### [facility] [address] [place] [address] Dr. Manda York pH (U) 6.0 [pH] Normal 5-9 [facility] Comment on above: Performed By: #### U AMIC #### [facility] [address] [address] [address] Manda York RBC NONE SEEN Abnormal 0-2 [facility] Comment on above: Performed By: #### U AMIC #### [facility] [address] [place] [address] Dr. Manda York SPEC GRAVITY 1.005 Normal 1.005-<=1.025 [facility] Comment on above: Performed By: #### U AMIC #### [facility] [address] [address] [address] Manda York UA PROTEIN Negative Normal NEGATIVE/ TRACE [facility] Comment on above: Performed By: #### U AMIC #### [facility] [address] [place] [address] Dr. Manda York Urobilinogen Qn (U) 0.2 {Carmella'U}/dL Normal 0.2 - 1. 0 [facility] Comment on above: Performed By: #### U AMIC #### [facility] [address] [place] [address] Dr. Manda York WBC NONE SEEN Normal NONE SEEN [facility] Comment on above: Performed By: #### U AMIC #### [facility] [address] [place] [address] Dr. Manda York URIC ACID SERUMon 02-14-2022 Urate [Mass/Vol] 4.2 mg/dL Normal 2.6-6.0 [facility] Comment on above: Performed By: #### U AMIC #### [facility] [address] [place] [address] Dr. Manda York VITAMIN D 25 OHon 02-14-2022 VIT D 25-OH 22.4 ng/mL Normal [facility] Comment on above: Performed By: #### F T4 #### [facility] [address] [place] [address] Dr. Manda York VIT D RANGES SEE BELOW Normal [facility] Comment on above: Result Comment: <20 ng/mL Vit D deficient 20 - <30 ng/mL Vit D insufficient 30 - 100 ng/mL Vit D sufficient >100 ng/mL Potential Toxicity Performed By: #### F T4 #### [facility] [address] [place] [address] Dr. Manda York METANEPHRINES FRAC. QNT 24 H R URINEon 11-28-2021 Metanephrine, U,24hr Comment Normal 36-209 [facility] Comment on above: Result Comment: No t otal volume submitted. Unable to calculate 24 hour result. Performed By: #### S LUIGI MELO #### [facility] [address] [place] [address] Dr. Manda York Metanephrine, Ur 57 ug/L Normal Undefined [facility] Comment on above: Performed By: #### LEANN PATRICKC #### [facility] [address] [address] [address] Manda York Normetanephr.,U,24h Comment Normal 131-612 [facility] Comment on above: Result Comment: No t otal volume submitted. Unable to calculate 24 hour result. Performed By: #### LEANN PATRICKC #### [facility] [address] [address] [address] Manda York Normetanephrine, Ur 116 ug/L Normal Undefined [facility] Comment on above: Performed By: #### LEANN PATRICKC #### [facility] [address] [place] [address] Dr. Manda York METANEPHRINES PLASMA FREEon 11-27-2021 Metanephrine, Pl 22.1 pg/mL Normal 0.0-88.0 [facility] Comment on above: Performed By: #### LUIGI PATRICK #### [facility] [address] [place] [address] Dr. Manda York Normetanephrine, Pl 50.7 pg/mL Normal 0.0-218.9 [facility] Comment on above: Performed By: #### LEANN PATRICKC #### [facility] [address] [place] [address] Dr. Manda York CMV PLASMA PCRon 11-19-2021 CMV Quant DNA PCR (Plasma) Negative Normal Negative [facility] Comment on above: Result Comment: No C MV DNA detected. The quantitative range of this assay is 200 to 1 million IU/mL. Performed By: #### LEANN PATRICKC #### [facility] [address] [place] [address] Dr. Manda York log10 CMV Qn DNA Pl UPTCAL Normal [facility] Comment on above: Result Comment: Unab le to calculate result since non-numeric result obtained for component test. Performed By: #### LEANN PATRICKC #### [facility] [address] [place] [address] Dr. Manda York CMV AB IGMon 11-18-2021 Cytomegalovirus (CMV) Ab, IgM 43.2 AU/mL Critically high 0.0-29.9 [facility] Comment on above: Result Comment: Nega tive <30.0 Equivocal 30.0 - 34.9 Positive >34.9 A positive result is generally indicative of acute infection, reactivation or persistent IgM production. Performed By: #### S LUIGI MELO #### [facility] [address] [place] [address] Dr. Manda York CMV AB, IGGon 11-18-2021 Cytomegalovirus (CMV) Ab, IgG >10.00 Critically high 0.00-0.59 [facility] Comment on above: Result Comment: Nega tive <0.60 Equivocal 0.60 - 0.69 Positive >0.69 Performed By: #### C MVIGG #### [facility] [address] [place] [address] Dr. Manda York CBC AUTO DIFFon 11-17-2021 BASO # 0.1 103/ul Normal 0.0-0.1 [facility] Comment on above: Performed By: #### C BC #### [facility] [address] [place] [address] Dr. Mnada York Basophils/100 WBC (Bld) 0.6 % Normal 0.2-2.0 [facility] Comment on above: Performed By: #### C BC #### [facility] [address] [place] [address] Dr. Manda York EO # 0.2 103/ul Normal 0.0-0.7 [facility] Comment on above: Performed By: #### C BC #### [facility] [address] [place] [address] Dr. Manda York Eosinophils/100 WBC (Bld) 2.3 % Normal 0.9-7.0 [facility] Comment on above: Performed By: #### C BC #### [facility] [address] [place] [address] Dr. Manda York Erythrocyte distribution width (RBC) [Ratio] 14.2 % Normal 11.0-15.0 [facility] Comment on above: Performed By: #### C BC #### [facility] [address] [place] [address] Dr. Manda York Hematocrit (Bld) [Volume fraction] 40.2 % Normal 36.0-48.0 [facility] Comment on above: Performed By: #### C BC #### [facility] [address] [place] [address] Dr. Manda York Hemoglobin (Bld) [Mass/Vol] 12.8 g/dL Normal 12.0-16.0 [facility] Comment on above: Performed By: #### C BC #### [facility] [address] [place] [address] Dr. Manda York IG # 0.02 10e3/ul Normal 0.00-0.03 [facility] Comment on above: Performed By: #### C BC #### [facility] [address] [place] [address] Dr. Manda York IG % 0.2 % Normal 0.0-0.5 [facility] Comment on above: Performed By: #### C BC #### [facility] [address] [place] [address] Dr. Manda York LYMPH # 2.5 103/ul Normal 1.2-3.8 [facility] Comment on above: Performed By: #### C BC #### [facility] [address] [place] [address] Dr. Manda York Lymphocytes/100 WBC (Bld) 24.9 % Normal 20.5-60.0 [facility] Comment on above: Performed By: #### C BC #### [facility] [address] [place] [address] Dr. Manda York MANUAL DIFF REQ NO Normal [facility] Comment on above: Performed By: #### C BC #### [facility] [address] [place] [address] Dr. Manda York MCH (RBC) [Entitic mass] 27.9 pg Normal 26.7-34.0 [facility] Comment on above: Performed By: #### C BC #### [facility] [address] [place] [address] Dr. Manda York MCHC (RBC) [Mass/Vol] 31.8 g/dL Normal 29.9-35.2 [facility] Comment on above: Performed By: #### C BC #### [facility] [address] [place] [address] Dr. Manda York MCV (RBC) [Entitic vol] 87.6 fL Normal 81.0-99.0 [facility] Comment on above: Performed By: #### C BC #### [facility] [address] [place] [address] Dr. Manda York MONO # 0.6 103/ul Normal 0.3-0.8 [facility] Comment on above: Performed By: #### C BC #### [facility] [address] [place] [address] Dr. Manda York Monocytes/100 WBC (Bld) 6.3 % Normal 1.7-12.0 [facility] Comment on above: Performed By: #### C BC #### [facility] [address] [place] [address] Dr. Manda York NEUT # 6.5 103/ul Normal 1.4-6.5 [facility] Comment on above: Performed By: #### C BC #### [facility] [address] [place] [address] Dr. Manda York Neutrophils/100 WBC (Bld) 65.7 % Normal 43.0-75.0 [facility] Comment on above: Performed By: #### C BC #### [facility] [address] [place] [address] Dr. Manda York Platelet mean volume (Bld) [Entitic vol] 10.1 fL Normal 9.5-13.5 [facility] Comment on above: Performed By: #### C BC #### [facility] [address] [place] [address] Dr. Manda York PLT 304 103/ul Normal 150-450 [facility] Comment on above: Performed By: #### C BC #### [facility] [address] [place] [address] Dr. Manda York RBC 4.59 106/ul Normal 4.20-5.40 [facility] Comment on above: Performed By: #### C BC #### [facility] [address] [place] [address] Dr. Manda York WBC 9.9 103/ul Normal 4.0-11.0 [facility] Comment on above: Performed By: #### C BC #### [facility] [address] [place] [address] Dr. Manda York PROF 14(COMP METB)on 022 Albumin [Mass/Vol] 3.7 g/dL Normal 3.4-5.0 [facility] Comment on above: Performed By: #### C BC #### [facility] [address] [place] [address] Dr. Manda York Albumin/Globulin [Mass ratio] 1.0 {ratio} Normal [facility] Comment on above: Performed By: #### C BC #### [facility] [address] [place] [address] Dr. Manda York ALP [Catalytic activity/Vol] 65 U/L Normal 46-116 [facility] Comment on above: Performed By: #### C BC #### [facility] [address] [place] [address] Dr. Manda York ALT [Catalytic activity/Vol] 35 U/L Normal 14-59 [facility] Comment on above: Performed By: #### C BC #### [facility] [address] [place] [address] Dr. Manda York Anion gap [Moles/Vol] 13.0 mmol/L Normal [facility] Comment on above: Performed By: #### C BC #### [facility] [address] [place] [address] Dr. Manda York AST [Catalytic activity/Vol] 12 U/L Critically low 15-37 [facility] Comment on above: Performed By: #### C BC #### [facility] [address] [place] [address] Dr. Manda York Bilirubin [Mass/Vol] 0.2 mg/dL Normal 0.2-1.0 [facility] Comment on above: Performed By: #### C BC #### [facility] [address] [address] [address] Manda York Calcium [Mass/Vol] 8.7 mg/dL Normal 8.5-10.1 [facility] Comment on above: Performed By: #### C BC #### [facility] [address] [address] [address] Manda York Chloride [Moles/Vol] 104 mmol/L Normal 98-107 [facility] Comment on above: Performed By: #### C BC #### [facility] [address] [place] [address] Dr. Manda York CO2 [Moles/Vol] 24.9 mmol/L Normal 21.0-32.0 [facility] Comment on above: Performed By: #### C BC #### [facility] [address] [place] [address] Dr. Manda York Creatinine [Mass/Vol] 0.77 mg/dL Normal 0.55-1.02 [facility] Comment on above: Performed By: #### C BC #### [facility] [address] [place] [address] Dr. Manda York EGFR-AF UZBEK >=60 Normal >=60 [facility] Comment on above: Performed By: #### C BC #### [facility] [address] [place] [address] Dr. Manda York EGFR-NON AF UZBEK >=60 Normal >=60 [facility] Comment on above: Performed By: #### C BC #### [facility] [address] [place] [address] Dr. Manda York Globulin (S) [Mass/Vol] 3.8 g/dL Normal [facility] Comment on above: Performed By: #### C BC #### [facility] [address] [place] [address] Dr. Manda York Glucose [Mass/Vol] 110 mg/dL Critically high 74-106 [facility] Comment on above: Performed By: #### C BC #### [facility] [address] [address] [address] Manda York Potassium [Moles/Vol] 3.9 mmol/L Normal 3.5-5.1 [facility] Comment on above: Performed By: #### C BC #### [facility] [address] [address] [address] Manda York Protein [Mass/Vol] 7.5 g/dL Normal 6.4-8.2 [facility] Comment on above: Performed By: #### C BC #### [facility] [address] [place] [address] Dr. Manda York Sodium [Moles/Vol] 138 mmol/L Normal 136-145 [facility] Comment on above: Performed By: #### C BC #### [facility] [address] [place] [address] Dr. Manda York Urea nitrogen [Mass/Vol] 17.0 mg/dL Normal 7.0-18.0 [facility] Comment on above: Performed By: #### C BC #### [facility] [address] [place] [address] Dr. Manda York Urea nitrogen/Creatinine [Mass ratio] 22.1 mg/mg Normal [facility] Comment on above: Performed By: #### C BC #### [facility] [address] [place] [address] Dr. Manda York SED RATE [facility] 2021 SED RATE 45 mm/hr Critically high <=20 [facility] Comment on above: Performed By: #### F T4 #### [facility] [address] [place] [address] Dr. Manda York CHRISTIAN EIA W/REFLEX 5 BIOMARKER Son 10-06-2021 CHRISTIAN Direct Positive Abnormal Negative [facility] Comment on above: Performed By: #### C BC #### [facility] [address] [place] [address] Dr. Manda York Anti-DNA (DS) Ab Qn 10 IU/mL Critically high 0-9 [facility] Comment on above: Result Comment: Nega tive <5 Equivocal 5 - 9 Positive >9 Performed By: #### C BC #### [facility] [address] [place], [place] [address] Dr. Manda York POST[employer] WORK[employer] Antibodies <0.2 Normal 0.0-0.9 [facility] Comment on above: Performed By: #### C BC #### [facility] [address] [place], [place] [address] Dr. Manda York SEE BELOW: Comment Normal [facility] Comment on above: Result Comment: Auto antibody [...] Sm (anti-Schneider) SLE 15 - 30% --------- POSTAL WORKER Mixed Connective Tissue Disease 95% (U1 nRNP, SLE 30 - 50% anti-ribonucleoprotein) Polymyositis and/or Dermatomyositis 20% --------- Scl-70 (antiDNA Scleroderma (diffuse) 20 - 35% topoisomerase) Crest 13% --------- Felicita-1 Polymyositis and/or Dermatomyositis 20 - 40% --------- Centromere B Scleroderma - Crest variant 80% Performed By: #### C BC #### [facility] [address] [place], [place] [address] Dr. Manda York Sjogren's Anti-SS-A <0.2 Normal 0.0-0.9 [facility] Comment on above: Performed By: #### C BC #### [facility] [address] [place] [address] Dr. Manda York Sjogren's Anti-SS-B <0.2 Normal 0.0-0.9 [facility] Comment on above: Performed By: #### C BC #### [facility] [address] [place] [address] Dr. Manda York Schneider Antibodies <0.2 Normal 0.0-0.9 [facility] Comment on above: Performed By: #### C BC #### [facility] [address] [place] [address] Dr. Manda York CMV PLASMA PCRon 10-06-2021 CMV Quant DNA PCR (Plasma) Negative Normal Negative [facility] Comment on above: Result Comment: No C MV DNA detected. The quantitative range of this assay is 200 to 1 million IU/mL. Performed By: #### C MVPL #### [facility] [address] [place] [address] Dr. Manda York log10 CMV Qn DNA Pl UPTCAL Normal [facility] Comment on above: Result Comment: Unab le to calculate result since non-numeric result obtained for component test. Performed By: #### C MVPL #### [facility] [address] [place] [address] Dr. Manda York CMV AB IGMon 2021 Cytomegalovirus (CMV) Ab, IgM 35.5 AU/mL Critically high 0.0-29.9 [facility] Comment on above: Result Comment: Nega tive <30.0 Equivocal 30.0 - 34.9 Positive >34.9 A positive result is generally indicative of acute infection, reactivation or persistent IgM production. Performed By: #### S LEANN MELOC #### [facility] [address] [place] [address] Dr. Manda York CMV AB, IGGon 2021 Cytomegalovirus (CMV) Ab, IgG 6.30 U/mL Critically high 0.00-0.59 [facility] Comment on above: Result Comment: Nega tive <0.60 Equivocal 0.60 - 0.69 Positive >0.69 Performed By: #### S LORIE, THYLC #### [facility] [address] [place] [address] Dr. Manda York CBC AUTO DIFFon 10-03-2021 BASO # 0.1 103/ul Normal 0.0-0.1 [facility] Comment on above: Performed By: #### C BC #### [facility] [address] [place] [address] Dr. Manda York Basophils/100 WBC (Bld) 0.7 % Normal 0.2-2.0 [facility] Comment on above: Performed By: #### C BC #### [facility] [address] [place] [address] Dr. Manda York EO # 0.2 103/ul Normal 0.0-0.7 [facility] Comment on above: Performed By: #### C BC #### [facility] [address] [place] [address] Dr. Manda York Eosinophils/100 WBC (Bld) 2.0 % Normal 0.9-7.0 [facility] Comment on above: Performed By: #### C BC #### [facility] [address] [place] [address] Dr. Manda York Erythrocyte distribution width (RBC) [Ratio] 14.4 % Normal 11.0-15.0 [facility] Comment on above: Performed By: #### C BC #### [facility] [address] [place] [address] Dr. Manda York Hematocrit (Bld) [Volume fraction] 37.2 % Normal 36.0-48.0 [facility] Comment on above: Performed By: #### C BC #### [facility] [address] [place] [address] Dr. Manda York Hemoglobin (Bld) [Mass/Vol] 12.3 g/dL Normal 12.0-16.0 [facility] Comment on above: Performed By: #### C BC #### [facility] [address] [place] [address] Dr. Manda York IG # 0.02 10e3/ul Normal 0.00-0.03 [facility] Comment on above: Performed By: #### C BC #### [facility] [address] [place] [address] Dr. Manda York IG % 0.2 % Normal 0.0-0.5 [facility] Comment on above: Performed By: #### C BC #### [facility] [address] [place] [address] Dr. Manda York LYMPH # 2.1 103/ul Normal 1.2-3.8 [facility] Comment on above: Performed By: #### C BC #### [facility] [address] [place] [address] Dr. Manda York Lymphocytes/100 WBC (Bld) 26.4 % Normal 20.5-60.0 [facility] Comment on above: Performed By: #### C BC #### [facility] [address] [place] [address] Dr. Manda York MANUAL DIFF REQ NO Normal [facility] Comment on above: Performed By: #### C BC #### [facility] [address] [place] [address] Dr. Manda York MCH (RBC) [Entitic mass] 29.2 pg Normal 26.7-34.0 [facility] Comment on above: Performed By: #### C BC #### [facility] [address] [place] [address] Dr. Manda York MCHC (RBC) [Mass/Vol] 33.1 g/dL Normal 29.9-35.2 [facility] Comment on above: Performed By: #### C BC #### [facility] [address] [place] [address] Dr. Manda York MCV (RBC) [Entitic vol] 88.4 fL Normal 81.0-99.0 [facility] Comment on above: Performed By: #### C BC #### [facility] [address] [place] [address] Dr. Manda York MONO # 0.5 103/ul Normal 0.3-0.8 [facility] Comment on above: Performed By: #### C BC #### [facility] [address] [place] [address] Dr. Manda York Monocytes/100 WBC (Bld) 6.7 % Normal 1.7-12.0 [facility] Comment on above: Performed By: #### C BC #### [facility] [address] [place] [address] Dr. Manda York NEUT # 5.2 103/ul Normal 1.4-6.5 [facility] Comment on above: Performed By: #### C BC #### [facility] [address] [place] [address] Dr. Madna York Neutrophils/100 WBC (Bld) 64.0 % Normal 43.0-75.0 [facility] Comment on above: Performed By: #### C BC #### [facility] [address] [place] [address] Dr. Manda York Platelet mean volume (Bld) [Entitic vol] 10.5 fL Normal 9.5-13.5 [facility] Comment on above: Performed By: #### C BC #### [facility] [address] [place] [address] Dr. Manda York PLT 265 103/ul Normal 150-450 [facility] Comment on above: Performed By: #### C BC #### [facility] [address] [place] [address] Dr. Manda York RBC 4.21 106/ul Normal 4.20-5.40 [facility] Comment on above: Performed By: #### C BC #### [facility] [address] [place] [address] Dr. Manda York WBC 8.1 103/ul Normal 4.0-11.0 [facility] Comment on above: Performed By: #### C BC #### [facility] [address] [place] [address] Dr. Manda York CRPon 10-03-2021 CRP [Mass/Vol] mg/L Normal <=1.0 [facility] Comment on above: Performed By: #### F T4 #### [facility] [address] [place] [address] Dr. Manda York SED RATE [facility] 2021 SED RATE 34 mm/hr Critically high <=20 [facility] Comment on above: Performed By: #### C BC #### [facility] [address] [address] [address] Manda York CHLORIDE (POC)Ordered By: Jae Holley on 10-07-2020 Chloride [Moles/Vol] 106 mmol/L 98 - 10 7 mmol/L [facility] Phone: Catheterization and angiogra phy procedure details panelOrdered By: Jonas Holley on 10-07-2020 Cardiac Diagnostic Report Demographics Patient TERA Torres Date of Study 10/07/2020 Name Date of 1980 Gender Female Age 40 year(s) Race Room [id number]^LEYDI^JONAS Height: 67 inch, 170.18 cm Number Corporate [id number] Weight: 234 pounds, 106.1 kg ID # Patient [id number] BSA: 2.16 m^2 BMI: 36.65 kg/m^2 Acct # MR # [id number] Performing Jonas Holley Physician Referring # Physician [...] Right coronary angiography. Contrast Material: - Isovue 52135 ml Fluoroscopy Time: Diagnostic: 2:12 minutes. Total: [...] assessed as CCS II according to the Polish clinical classification. Hemodynamics Condition: Baseline Room Air [...] + + !Aortic (more content not included)... Amnis Work Phone: Gwyn Norris Incoming Cardio Results From [facility] - 10/07/2020 10:37 AM EDT Cardiac Diagnostic Report Demographics Patient TERA Torres Date of Study 10/07/2020 Name Date of 1980 Gender Female Age 40 year(s) Race Room [id number]^GINO Height: 67 inch, 170.18 cm Number Corporate [id number] Weight: 234 pounds, 106.1 kg ID # Patient [id number] BSA: 2.16 m^2 BMI: 36.65 kg/m^2 Acct # MR # [id number] Performing Jonas Holley Physician Referring # Physician [...] Right coronary angiography. Contrast Material: - Isovue 00926 ml Fluoroscopy Time: Diagnostic: 2:12 minutes. Total: [...] assessed as CCS II according to the Polish clinical classification. Hemodynamics Condition: Baseline Room Air [...] +--------- + + Shunts Oxygen Values O2 Otbpdtbz216.4O2 Pmkwlbkbsxo070.52 [facility] Phone: [facility] Phone: [facility] Phone: Creatinine W/GFR Point of Ca reOrdered By: Jonas Holley on 10-07-2020 Creatinine [Mass/Vol] 0.64 mg/dL 0.51 - 1.19 mg/dL [facility] Phone: GFR Non- >60 >60 mL/min [facility] Phone: GFR/1.73 sq M.predicted MDRD (S/P/Bld) [Vol rate/Area] mL/min/{1.73_m2} >60 mL/min [facility] Phone: GFR/1.73 sq M.predicted MDRD (S/P/Bld) [Vol rate/Area] [facility] Phone: Comment on above: Average GFR for 40-4 9 years old: 99 mL/min/1.73sq m Chronic Kidney Disease: <60 mL/min/1.73sq m Kidney failure: <15 mL/min/1.73sq m eGFR calculated using average adult body mass. Additional eGFR calculator available at: http://www.[employer]/multiple_crcl_2012.htm Hemoglobin and hematocrit, b loodOrdered By: Jonas Holley on 10-07-2020 Hematocrit (Bld) [Volume fraction] 41 % 36 - 46 % [facility] Phone: Hemoglobin (Bld) [Mass/Vol] 14.0 g/dL 12.0 - 16.0 g/dL [facility] Phone: No Panel InformationOrdered By: Jonas Holley on 10-07-2020 [facility] Phone: POCT GlucoseOrdered By: Anu Holley on 10-07-2020 Glucose [Mass/Vol] 98 mg/dL 74 - 100 mg/dL [facility] Phone: POCT urine pregnancyOrdered By: Jonas Holley on 10-07-2020 Beta HCG ( test) Ql (U) Negative NEGATIVE [facility] Phone: Comment on above: Specimens with hCG l evels near the threshold of the test (25 mIU/mL) may give a negative or indeterminate result. In such cases, another test should be performed with a new specimen in 48-72 hours. If early is suspected clinically in this setting, correlation with quantitative serum b-hCG level is suggested. [facility] Phone: POTASSIUM (POC)Ordered By: Al Holley on 10-07-2020 Potassium [Moles/Vol] 3.8 mmol/L 3.5 - 4.5 mmol/L [facility] Phone: Platelet Counton 10-07-2020 Platelets (Bld) [#/Vol] 299 10*3/uL Normal 138-453 [facility] Comment on above: Performed By: #### P LT #### [employer] [address] [place] [address] Livestock Laborer: Rick Serrano MD Platelet countOrdered By: Jae Holley on 10-07-2020 Platelets (Bld) [#/Vol] 299 10*3/uL [facility] Phone: [facility] Phone: SODIUM (POC)Ordered By: Anu Holley on 10-07-2020 Sodium [Moles/Vol] 141 mmol/L 138 - 146 mmol/L [facility] Phone: Coding Summary.on 01-12-2019 Coding Summary. CODING DATE: 01/12/2019 [facility] [...] mass index (BMI) 34.0-34.9, adult Z79.899 Other snf (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 However, the narrative phrase printed from the coding software may appear abbreviated, or result in slightly different terminology. Coded By: Luz Judd Date Saved: 01/12/2019 10:25 am [facility] Coding Summary. CODING DATE: 01/12/2019 [facility] [...] mass index (BMI) 34.0-34.9, adult Z79.899 Other snf (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 However, the narrative phrase printed from the coding software may appear abbreviated, or result in slightly different terminology. Revised Coded By: Luz Judd Revised Date Saved: 01/12/2019 10:25 am [facility] XR Chest 2 Viewson 9 XR Chest [...] M.D. Transcribed by: BILL Technologist: ZOILA Kenney [facility] Auto Diffon 01-11-2019 Basophils/100 WBC (Bld) 0.8 % Normal 0.0-2.0 [facility] Comment on above: Order Comment: Order Added by Discern Expert. Performed By: #### 1 [id number], 6656625, 4834597, 3430194, 38646053, 3268331, 6442158, 3106768, 7117580, 05607795, 7875631 #### [facility] [address] [place] [address] Basophils/Leukocytes Auto (Bld) [Pure # fraction] 0.1 E9/L Normal 0.0-0.2 [facility] Comment on above: Order Comment: Order Added by Discern Expert. Performed By: #### 1 4844886, 3510392, 7882865, 0611867, 15562818, 0100582, 5540924, 5602929, 7047736, 31016499, 0221167 #### [facility] [address] [place] [address] Eosinophils/100 WBC (Bld) 1.9 % Normal 0.0-8.0 [facility] Comment on above: Order Comment: Order Added by Discern Expert. Performed By: #### 1 6977799, 9039662, 7805078, 3568109, 58611152, 1241056, 7458193, 9649029, 9445537, 67557803, 5957756 #### [facility] [address] [place] [address] Eosinophils/Leukocytes Auto (Bld) [Pure # fraction] 0.1 E9/L Normal 0.0-0.5 [facility] Comment on above: Order Comment: Order Added by Discern Expert. Performed By: #### 1 9955290, 9734492, 1283379, 1882779, 16746846, 2034452, 3555514, 3362353, 0975014, 66047413, 6180329 #### [facility] [address] [place] [address] Lymphocytes/100 WBC (Bld) 28.0 % Normal 14.0-50.0 [facility] Comment on above: Order Comment: Order Added by Discern Expert. Performed By: #### 1 9457904, 5748369, 0394234, 9180089, 06482145, 1667671, 3003958, 0033062, 9708696, 26844153, 5629083 #### [facility] [address] [place] [address] Lymphocytes/Leukocytes Auto (Bld) [Pure # fraction] 2.2 E9/L Normal 1.0-4.0 [facility] Comment on above: Order Comment: Order Added by Discern Expert. Performed By: #### 1 5941538, 2939371, 0837655, 5219741, 45095227, 8709061, 8145029, 3507200, 3634561, 38259240, 3492753 #### [facility] [address] [place] [address] Monocytes/100 WBC (Bld) 7.0 % Normal 4.0-14.0 [facility] Comment on above: Order Comment: Order Added by Discern Expert. Performed By: #### 1 6531189, 5244746, 0563447, 2129794, 57447946, 7560941, 6553167, 9836187, 2757936, 58272131, 8967562 #### [facility] [address] [place] [address] Monocytes/Leukocytes Auto (Bld) [Pure # fraction] 0.6 E9/L Normal 0.2-1.0 [facility] Comment on above: Order Comment: Order Added by Discern Expert. Performed By: #### 1 3040611, 7149063, 6956912, 0979565, 25121654, 4030153, 8080223, 9781546, 1575471, 59873293, 7638308 #### [facility] [address] [place] [address] Neutrophils/100 WBC (Bld) 62.3 % Normal 36.0-75.0 [facility] Comment on above: Order Comment: Order Added by Discern Expert. Performed By: #### 1 8634909, 3885754, 4442903, 4274334, 80558781, 5977656, 6771670, 9852386, 9285315, 48589647, 3130087 #### [facility] [address] [place] [address] Neutrophils/Leukocytes Auto (Bld) [Pure # fraction] 4.9 E9/L Normal 2.0-7.5 [facility] Comment on above: Order Comment: Order Added by Discern Expert. Performed By: #### 1 6005639, 0200636, 2489503, 1165357, 70594047, 8300209, 8284004, 3697171, 1773278, 50543529, 1647244 #### [facility] [address] [place] [address] BMPon 01-11-2019 Creatinine [Mass/Vol] 0.7 mg/dL Normal 0.5-1.[address] [facility] Comment on above: Performed By: #### 1 4927974, 5207626, 8285937, 9400815, 18177270, 5594233, 8134725, 0223989, 7353649, 96754677, 1266612 #### [facility] [address] [place] [address] Urea nitrogen [Mass/Vol] 11 mg/dL Normal 5-21 [facility] Comment on above: Performed By: #### 1 7408337, 6654179, 3404850, 9154302, 86153919, 0080689, 4785846, 3566886, 0428499, 39340270, 7068837 #### [facility] [address] [place] [address] Urea nitrogen/Creatinine [Mass ratio] 16 No Units Normal 10-20 [facility] Comment on above: Performed By: #### 1 6982271, 7059847, 4619987, 0558865, 44555753, 1029628, 2657557, 7624165, 3048968, 23043742, 3912198 #### [facility] [address] [place] [address] Anion gap [Moles/Vol] 14 mmol/L Normal 6-[address] [facility] Comment on above: Performed By: #### 1 3409056, 2739718, 8830373, 5587234, 34347952, 5935706, 9319423, 9238878, 5561251, 79070544, 5421692 #### [facility] [address] [place] [address] Calcium [Mass/Vol] 8.9 mg/dL Normal 8.9-11.1 [facility] Comment on above: Performed By: #### 1 6887759, 0777796, 7654914, 6190206, 63733535, 8126457, 5849149, 2472262, 2347669, 89725836, 4201332 #### [facility] [address] [place] [address] Chloride [Moles/Vol] 107 mmol/L Normal 101-111 [facility] Comment on above: Performed By: #### 1 2444092, 9210345, 8787643, 8845630, 47750714, 3654048, 9358585, 4682602, 2870252, 25666722, 8748054 #### [facility] [address] [place] [address] CO2 [Moles/Vol] 22 mmol/L Normal 21-31 [facility] Comment on above: Performed By: #### 1 4394333, 6922040, 5479195, 5550362, 28219748, 8500487, 6484314, 8375044, 5785685, 99385523, 6515021 #### [facility] [address] [place] [address] Glucose [Mass/Vol] 122 mg/dL Normal 55-199 [facility] Comment on above: Result Comment: If t his glucose result represents a fasting glucose, interpretation should refer to the following reference range: 55-99 mg/dL Performed By: #### 1 3581203, 0404196, 0435423, 3038193, 77925246, 8263191, 0892954, 3142704, 7483054, 78602638, 0813752 #### [facility] [address] [place] [address] Potassium [Moles/Vol] 3.8 mmol/L Normal 3.5-5.[address] [facility] Comment on above: Performed By: #### 1 6539550, 5759749, 1570027, 1374314, 49927743, 1231703, 2822564, 6734450, 2111220, 79316511, 0683478 #### [facility] [address] [place] [address] Sodium [Moles/Vol] 139 mmol/L Normal 135-145 [facility] Comment on above: Performed By: #### 1 1908525, 0461602, 0964898, 5120676, 75551900, 7428908, 2640718, 5995541, 0412940, 73710011, 9263034 #### [facility] [address] [place] [address] CBC w/ Auto Diffon 9 Erythrocyte distribution width (RBC) [Ratio] 14.0 % Normal 10.9-14.2 [facility] Comment on above: Performed By: #### 1 8186995, 2654367, 9542306, 9245928, 39878004, 6617146, 5222204, 8016374, 8039689, 39680957, 3912728 #### [facility] [address] [place] [address] Hematocrit (Bld) [Volume fraction] 39.9 % Normal 34.0-46.0 [facility] Comment on above: Performed By: #### 1 0379846, 7894585, 3518495, 4166200, 50097435, 8215924, 8147184, 0284433, 7014575, 32562970, 9171871 #### [facility] [address] [place] [address] Hemoglobin (Bld) [Mass/Vol] 13.5 g/dL Normal 12.0-16.0 [facility] Comment on above: Performed By: #### 1 4418669, 6347138, 1030563, 3023379, 31002273, 3398251, 3671075, 4509900, 3276542, 72311151, 5120230 #### [facility] [address] [place] [address] MCH (RBC) [Entitic mass] 29.4 pg Normal 27.0-34.0 [facility] Comment on above: Performed By: #### 1 4696010, 9691471, 1026675, 4097849, 88407182, 8980812, 0957315, 6043044, 9125713, 29618233, 3568427 #### [facility] [address] [place] [address] MCHC (RBC) [Mass/Vol] 33.7 g/dL Normal 33.3-35.[address] [facility] Comment on above: Performed By: #### 1 9972361, 5533059, 4270555, 1746169, 63795142, 9309090, 9369913, 4119679, 3977914, 98924157, 0015032 #### [facility] [address] [place] [address] MCV (RBC) [Entitic vol] 87.4 fL Normal 80.0-100.0 [facility] Comment on above: Performed By: #### 1 9501672, 9808988, 8355056, 7922286, 91553656, 6093530, 7517202, 7249494, 8915305, 92048727, 4111717 #### [facility] [address] [place] [address] Platelet mean volume (Bld) [Entitic vol] 8.5 fL Normal 6.4-10.8 [facility] Comment on above: Performed By: #### 1 5920910, 6797344, 8335819, 7899359, 71069342, 1339162, 4130161, 0606872, 0042489, 96816932, 8339898 #### [facility] [address] [place] [address] Platelets (Bld) [#/Vol] 244.0 E9/L Normal 150.0-500.0 [facility] Comment on above: Performed By: #### 1 4447034, 3983342, 4257328, 5235893, 65287517, 9638514, 0371291, 3803433, 1207247, 54746742, 4744807 #### [facility] [address] [place] [address] RBC (Bld) [#/Vol] 4.6 E12/L Normal 4.3-5.9 [facility] Comment on above: Performed By: #### 1 4307540, 0147021, 0983496, 7010629, 66917662, 4233539, 1177603, 3588182, 2334894, 89776478, 4875248 #### [facility] [address] [place] [address] WBC corrected for nucl RBC Auto (Bld) [#/Vol] 7.9 E9/L Normal 4.0-11.0 [facility] Comment on above: Performed By: #### 1 7684334, 9859078, 5579478, 7377767, 90156544, 3771516, 3886453, 2435022, 1279866, 89320464, 7169385 #### [facility] [address] [place] [address] D-Dimeron 01-11-2019 Fibrin D-dimer FEU (PPP) [Mass/Vol] 265 ng/mL Normal 215-500 [facility] Comment [...] infections Liver cirrhosis Performed By: #### 1 1907666, 1793225, 5602352, 6344183, 34183385, 1903652, 7661886, 4313545, 2181227, 08656520, 4925050 #### [facility] [address] [place] [address] ED Clinical Summaryon 2018 ED Clinical Summary [address] [address] ED Clinical Summary Person Information Name: ARIADNA HALEY [place] Age: 38 Years : 1980 12:00 AM Sex: Female Language: [place] PCP: Charles Nicole DO Marital Status: Single Phone: [phone] Visit Id: Visit Reason: Chest pain; CHEST [...] 01/11/2019 6:42 PM 01/11/2019 6:42 PM ADDRESS: [address] [place] [id number] [facility] DOC NOTES: MEDICAL INFORMATION: Prescriptions Given: PATIENT EDUCATION INFORMATION: Instructions: Smoking Cessation; Chest Pain (Nonspecific) Follow up: With: Address: When: [address] [phone] Business (1) Within 2 to 3 days Comments: Return to ED if symptoms worsen DIAGNOSIS: 1:Chest pain Normal [facility] ED Note-Physicianon 01-12-20 ED Note-Physician [...] Charles Nicole Within 2 to [address] [place] [address] [facility] (1) Additional Instructions: Return to ED if [...] Lymph Auto: 28 % (01/11/19 16:46:00 EDT) Tate Auto: 7 % (01/11/19 16:46:00 EDT) Eos Auto: 1.9 % (01/11/19 16:46:00 EDT) Basophil Auto: 0.8 % (01/11/19 16:46:00 EDT) Neutro Absolute: 4.9 E9/L (01/11/19 16:46:00 EDT) Lymph Absolute: 2.2 E9/L (01/11/19 16:46:00 EDT) Tate Absolute: 0.6 E9/L (01/11/19 16:46:00 EDT) Eos [...] Browne DO 01/11/2019 15:54:18 Normal [facility] Comment [...] and skin patches. Some may be available visg-[id number] and others require a prescription. ? Antidepressant [...] Document Reviewed: 08/18/2012 ExitCare? Patient Information ?2014 [employer]. This information is not intended to replace [...] Document Reviewed: 12/13/2008 ExitCare? Patient Information ?2015 [employer]. This information is not intended to replace advice given to you by your health care provider. Make sure you discuss any questions you have with your health care provider. Normal [facility] ED Patient Summaryon 019 ED Patient Summary [address] [address] Patient Discharge Instructions Person Information Name: ARIADNA HALEY Age: 38 Years Arrival Date: 01/11/2019 3:44 PM Discharge Diagnosis: 1:Chest pain Primary Care Physician: Charles Nicole DO Provider Information Primary Provider: Orin Browne DO Advanced Loss Control Engineer:None The exam and treatment you received in the Emergency Department were for an urgent problem and are not intended as complete care. It is important that you follow up with a doctor, nurse practitioner, or physician?s assistant golf professional for ongoing care. If your symptoms become worse or you do not improve as expected and you are unable to reach your usual health care provider, you should return to the Emergency Department. We are available 24 hours a day. ARIADNA HALEY has been given the following list of patient education materials, prescriptions and follow-up instructions: Follow-up Instructions: With: Address: When: Charles Nicole [address] [place], [place] [phone] Business (1) Within 2 to 3 days [...] opioids can be used to help relieve okpscnao-go-okhnam pain and are often prescribed following a [...] struggling with addiction, tell your health healthcare consultant and ask for guidance or call [facility] National Helpline at 8-353-664-NBDB. j Source: [place] Department of Health and Human Services/Center for Disease Control & Prevention [facility] Medications Given: Medication Dose Route No medications found. Medication Information: Medications to Continue with No Changes Other Medications metformin (metformin 500 mg ER Tab) 250 Milligram By Mouth 2 times a day. Comment: Pharmacy Information: Thank you for choosing [facility] Patient Education Materials: Smoking Cessation [...] and skin patches. Some may be available [id number]-seztgth and others require a prescription. ? Antidepressant [...] Document Reviewed: 08/18/2012 ExitCare? Patient Information ?2014 [employer]. This information is not intended to replace [...] Document Reviewed: 12/13/2008 ExitCare? Patient Information ?2014 [employer]. This information is not intended to replace advice given to you by your health care provider. Make sure you discuss any questions you have with your health care provider. TERA Dorantes NICOLE B , have received the following patient education materials/instruction s and have verbalized understanding: Patient Education Materials: Smoking Cessation; Chest Pain (Nonspecific) Follow-up Instructions: With: Address: When: [place] [address] [facility] () Within 2 to 3 days Comments: Return to ED if symptoms worsen Prescriptions: Patient Signature Date Clinician/Nurse Signature Date 01/11/19 18:42:28 Normal [facility] Progress Note-Nurseon 2018 Progress Note-Nurse Pt explained discharge instructions and voiced understanding. Pt sts she will follow up with her PCP and denies any furthe questions at this time. Normal [facility] Troponin 0 Hr.on 01-11-2019 Troponin I.cardiac [Mass/Vol] ng/mL Normal <=0.03 [facility] Comment on above: Result Comment: New Troponin Assay 10/05/13 [place] Cutoff value > or = 0.03 ng/mL in conjunction with clinical conditions of myocardial infarction. (www.escardio.org/guidelines) Performed By: #### 1 3890159, 8831537, 6176962, 9116198, 11038279, 1780049, 5941151, 9088904, 1266663, 76706936, 4935828 #### [facility] [address] [place] [address] eGFRon 01-11-2019 GFR/1.73 sq M predicted among blacks MDRD (S/P/Bld) [Vol rate/Area] mL/min/{1.73_m2} Normal >=59 [facility] Comment on above: Order Comment: Order added by Discern Expert. Result Comment: eGFR is race adjusted. AA=. Performed By: #### 1 2238595, 4394739, 2902285, 6217642, 71044996, 4735568, 2348920, 6168802, 9746287, 81230389, 9709814 #### [facility] Laboratory [address] [place] [address] GFR/1.73 sq M predicted among non-blacks MDRD (S/P/Bld) [Vol rate/Area] mL/min/{1.73_m2} Normal >=59 [facility] Comment on above: Order Comment: Order added by Discern Expert. Result Comment: Desktop Support Specialist anthony kidney disease could be indicated at eGFR's of less than 60 mL/min/1.73m2. Kidney failure is indicated at less than 15 mL/min/1.73m2. Performed By: #### 1 7363608, 7480911, 5739954, 6608275, 16506801, 9792326, 2416678, 9522180, 3380141, 86014520, 9962680 #### [facility] [address] [place] [address] SPINE, LUMBOSACRAL CMPLT(TOOTIE DING)on 12-05-2018 SPINE, LUMBOSACRAL CMPLT(BENDING) Patient Name: ARIADNA HALEY STUDY: SPINE, LUMBOSACRAL; CMPLT(BENDING); 12/05/2018 1:47 pm INDICATION: LUMBAR XR. COMPARISON: None. ACCESSION NUMBER(S): [id number] ORDERING CLINICIAN: KADE RICHARDSON FINDINGS: No lumbar spine fracture. Scattered small endplate osteophytes. Vertebral body and disc space heights are are maintained. 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 No spondylolisthesis. No instability on flexion or extension. IMPRESSION: Degenerative changes of the lumbar spine without instability. Electronically signed by: EARNESTINE MANUEL MD Normal [facility] Coding Summary.on 09-15-2018 Coding Summary. CODING DATE: 09/15/2018 FINAL [facility] DSC STATUS: Home (Routine DC) PAYOR: Medicaid [...] F17.210 Nicotine dependence, cigarettes, uncomplicated Z79.899 Other rat exterminator (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 However, the narrative phrase printed from the coding software may appear abbreviated, or result in slightly different terminology. Coded By: Luz Judd Date Saved: 09/15/2018 07:15 am Normal [facility] Auto Diffon 09-14-2018 Basophils/100 WBC (Bld) 0.6 % Normal 0.0-2.0 [facility] Comment on above: Order Comment: Order Added by Discern Expert. Performed By: #### 1 4342487, 2552647, 4816910, 8510989, 55717116, 7406872, 8526431, 8891545, 6644470, 31470964, 2628411 #### [facility] [address] [place] [address] Basophils/Leukocytes Auto (Bld) [Pure # fraction] 0.1 E9/L Normal 0.0-0.2 [facility] Comment on above: Order Comment: Order Added by Discern Expert. Performed By: #### 1 5292623, 2765611, 9536883, 7775867, 93685651, 1320809, 0095929, 4408338, 7257376, 42725666, 7802370 #### [facility] [address] [place] [address] Eosinophils/100 WBC (Bld) 2.2 % Normal 0.0-8.0 [facility] Comment on above: Order Comment: Order Added by Discern Expert. Performed By: #### 1 5546830, 8517401, 9733070, 8749016, 69145848, 2131171, 4749286, 7929822, 2931146, 19101308, 8633842 #### [facility] [address] [place] [address] Eosinophils/Leukocytes Auto (Bld) [Pure # fraction] 0.2 E9/L Normal 0.0-0.5 [facility] Comment on above: Order Comment: Order Added by Discern Expert. Performed By: #### 1 4325780, 1540655, 8638501, 9275770, 77346314, 6885856, 1968676, 1461429, 1826001, 61599112, 3460710 #### [facility] [address] [place] [address] Lymphocytes/100 WBC (Bld) 30.6 % Normal 14.0-50.0 [facility] Comment on above: Order Comment: Order Added by Discern Expert. Performed By: #### 1 6376816, 9804618, 0004248, 8475214, 81519638, 2102940, 0281785, 2855131, 2393224, 17981543, 4932966 #### [facility] [address] [place] [address] Lymphocytes/Leukocytes Auto (Bld) [Pure # fraction] 3.0 E9/L Normal 1.0-4.0 [facility] Comment on above: Order Comment: Order Added by Discern Expert. Performed By: #### 1 9568389, 7708539, 1355201, 7190728, 80452338, 0911362, 4345513, 4567342, 0465847, 31143722, 0252541 #### [facility] [address] [place] [address] Monocytes/100 WBC (Bld) 7.2 % Normal 4.0-14.0 [facility] Comment on above: Order Comment: Order Added by Discern Expert. Performed By: #### 1 5480489, 4695147, 9987303, 7120908, 45717118, 5412337, 5235530, 9234418, 0913281, 31070276, 3148783 #### [facility] [address] [place] [address] Monocytes/Leukocytes Auto (Bld) [Pure # fraction] 0.7 E9/L Normal 0.2-1.0 [facility] Comment on above: Order Comment: Order Added by Discern Expert. Performed By: #### 1 5126287, 4415225, 7347137, 9777384, 12092794, 5554925, 7311409, 5542209, 8320249, 82119133, 2958570 #### [facility] [address] [place] [address] Neutrophils/100 WBC (Bld) 59.4 % Normal 36.0-75.0 [facility] Comment on above: Order Comment: Order Added by Discern Expert. Performed By: #### 1 3964630, 1419262, 9908479, 8673825, 43449520, 9570401, 6304152, 6624723, 5686908, 86751122, 2129129 #### [facility] [address] [place] [address] Neutrophils/Leukocytes Auto (Bld) [Pure # fraction] 5.9 E9/L Normal 2.0-7.5 [facility] Comment on above: Order Comment: Order Added by Discern Expert. Performed By: #### 1 4096154, 7666709, 4551780, 3736786, 32522014, 8870242, 8071324, 7856604, 3780032, 88535020, 6225699 #### [facility] [address] [place] [address] BMP 09-14-2018 Creatinine [Mass/Vol] 0.6 mg/dL Normal 0.5-1.3 [facility] Comment on above: Performed By: #### 1 7665145, 2731158, 8496746, 8626332, 36718250, 8604802, 3938451, 5562356, 8933728, 17076192, 5449302 #### [facility] [address] [place] [address] Urea nitrogen [Mass/Vol] 15 mg/dL Normal 5-21 [facility] Comment on above: Performed By: #### 1 2294205, 3276859, 9161607, 1759450, 05257562, 2160812, 8151776, 7331255, 2544941, 51775902, 2000085 #### [facility] [address] [place] [address] Urea nitrogen/Creatinine [Mass ratio] 25 No Units High 10-20 [facility] Comment on above: Performed By: #### 1 4895092, 3686064, 8034747, 9300979, 45039455, 2813106, 8411267, 2419149, 8003013, 78022682, 8824465 #### [facility] [address] [place] [address] Anion gap [Moles/Vol] 13 mmol/L Normal 6-[address] [facility] Comment on above: Performed By: #### 1 2422277, 8160385, 6558971, 2386084, 75583538, 4061311, 4405397, 5879051, 3498830, 91844486, 7761107 #### [facility] [address] [place] [address] Calcium [Mass/Vol] 9.5 mg/dL Normal 8.9-11.1 [facility] Comment on above: Performed By: #### 1 1311729, 4086910, 2491695, 4701179, 77347377, 5942797, 2887142, 7488073, 0180744, 58722633, 1249434 #### [facility] [address] [place] [address] Chloride [Moles/Vol] 103 mmol/L Normal 101-111 [facility] Comment on above: Performed By: #### 1 0507655, 1522574, 1553193, 4704736, 75293341, 2412911, 3764878, 5700044, 8770813, 39849247, 9658963 #### [facility] [address] [place] [address] CO2 [Moles/Vol] 24 mmol/L Normal 21-31 [facility] Comment on above: Performed By: #### 1 0292183, 1643192, 4073862, 5666068, 00443516, 6668196, 0019606, 1634055, 5993017, 23368962, 6288265 #### [facility] [address] [place] [address] Glucose [Mass/Vol] 102 mg/dL Normal 55-199 [facility] Comment on above: Result Comment: If t his glucose result represents a fasting glucose, interpretation should refer to the following reference range: 55-99 mg/dL Performed By: #### 1 1443056, 4934036, 7521042, 1058994, 29316819, 1157385, 0518710, 4105273, 6412564, 06289755, 4980451 #### [facility] [address] [place] [address] Potassium [Moles/Vol] 3.6 mmol/L Normal 3.5-5.[address] [facility] Comment on above: Performed By: #### 1 0303499, 0264887, 7149332, 1876384, 13776347, 4070375, 7868578, 4393358, 6602071, 81641172, 4076144 #### [facility] [address] [place] [address] Sodium [Moles/Vol] 136 mmol/L Normal 135-145 [facility] Comment on above: Performed By: #### 1 6603896, 3536553, 7778710, 7213913, 32063782, 1006443, 2686897, 2523995, 8239819, 03847735, 3287621 #### [facility] [address] [place] [address] CBC w/ Auto Diffon Erythrocyte distribution width (RBC) [Ratio] 14.2 % Normal 10.9-14.2 [facility] Comment on above: Performed By: #### 1 2082186, 2637374, 3664221, 9758224, 76849468, 0015769, 1198083, 6153495, 8863521, 23896945, 4985111 #### [facility] [address] [place] [address] Hematocrit (Bld) [Volume fraction] 39.4 % Normal 34.0-46.0 [facility] Comment on above: Performed By: #### 1 2696910, 5028419, 9061880, 7818444, 93456318, 8928492, 9118064, 8697223, 8418359, 81295499, 2797895 #### [facility] [address] [place] [address] Hemoglobin (Bld) [Mass/Vol] 13.3 g/dL Normal 12.0-16.0 [facility] Comment on above: Performed By: #### 1 8171507, 3720027, 6882070, 3053114, 77952614, 0539275, 3790312, 2209104, 9262481, 47664309, 5807985 #### [facility] [address] [place] [address] MCH (RBC) [Entitic mass] 29.2 pg Normal 27.0-34.0 [facility] Comment on above: Performed By: #### 1 9130494, 5575489, 6335922, 8234339, 46919025, 8349833, 3667054, 2362283, 8550414, 46705905, 9939131 #### [facility] [address] [place] [address] MCHC (RBC) [Mass/Vol] 33.8 g/dL Normal 33.3-35.[address] [facility] Comment on above: Performed By: #### 1 2610222, 4877957, 2990576, 8937869, 20429054, 4028947, 9905350, 4866290, 1441679, 24191472, 8388103 #### [facility] [address] [place] [address] MCV (RBC) [Entitic vol] 86.6 fL Normal 80.0-100.0 [facility] Comment on above: Performed By: #### 1 6576843, 4304945, 5764101, 9515213, 91208159, 7974583, 6646602, 1658780, 5919599, 65288097, 9325463 #### [facility] [address] [place] [address] Platelet mean volume (Bld) [Entitic vol] 8.8 fL Normal 6.4-10.8 [facility] Comment on above: Performed By: #### 1 8613206, 7235542, 0613048, 6797879, 39020693, 4140576, 7302306, 1314936, 0533124, 96432508, 1772427 #### [facility] [address] [place] [address] Platelets (Bld) [#/Vol] 307.0 E9/L Normal 150.0-500.0 [facility] Comment on above: Performed By: #### 1 7339118, 5025272, 1146229, 2482359, 71114091, 3258181, 0121839, 5826539, 5093890, 41750184, 9969608 #### [facility] [address] [place] [address] RBC (Bld) [#/Vol] 4.6 E12/L Normal 4.3-5.9 [facility] Comment on above: Performed By: #### 1 5051726, 4137989, 5024655, 6498886, 01649061, 5588257, 6330302, 6064472, 9166450, 68932558, 1131281 #### [facility] [address] [place] [address] WBC corrected for nucl RBC Auto (Bld) [#/Vol] 9.9 E9/L Normal 4.0-11.0 [facility] Comment on above: Performed By: #### 1 9558577, 3438733, 5342616, 4602952, 66130336, 3787295, 5134612, 6586740, 3218671, 16605864, 3034980 #### [facility] [address] [place] [address] CKon 09-14-2018 CK [Catalytic activity/Vol] 53 Int._Unit/L Normal 14-261 [facility] Comment on above: Performed By: #### 1 2542870, 0074264, 3206382, 1673932, 68909102, 8082042, 3784397, 3229570, 5907239, 41762188, 3334948 #### [facility] [address] [place] [address] ED Clinical Summaryon 2018 ED Clinical Summary [address] [address] ED Clinical Summary Person Information Name: ARIADNA HALEY [facility] Age: 37 Years : 1980 12:00 AM Sex: Female Language: [place] PCP: Charles Nicole DO Marital Status: Single Phone: [phone] Visit Id: Visit Reason: Anxiety; Paraesthesia; NUMBNESS [...] 09/14/2018 12:17 AM 09/14/2018 12:17 AM ADDRESS: [address] [place] [address] [place] [phone] PHYS DOC NOTES: MEDICAL INFORMATION: Prescriptions Given: Prescription Display gabapentin (gabapentin 100 mg Cap) 100 mg = 1 cap(s), Oral, Daily, X 7 day(s), # 7 cap(s), Refills(s) 0, Pharmacy: [facility] gabapentin (gabapentin 100 mg Cap) 100 mg = 1 cap(s), Oral, Daily, X 7 day(s), # 7 cap(s), Refills(s) 0, Pharmacy: [facility]/pharmacy #[id number] magnesium oxide (magnesium oxide 400 mg Tab) 400 mg = 1 tab(s), Oral, Daily, X 7 day(s), # 7 tab(s), Refills(s) 0, Pharmacy: [facility] magnesium oxide (magnesium oxide 400 mg Tab) 400 mg = 1 tab(s), Oral, Daily, X 7 day(s), # 7 tab(s), Refills(s) 0, Pharmacy: [facility]/pharmacy #6177 Home Meds Display metformin (metformin 500 mg ER Tab) 250 mg, Oral, BID, Refills(s) 0 PATIENT EDUCATION INFORMATION: Instructions: Paresthesia, Bmpg-hl-Pjlk; Restless Legs Syndrome Follow up: With: [facility]: [facility] [address] [place] [address] Business (1) Within 1 to 2 days Comments: neurologist you may also follow up with him With: Address: When: Charles Nicole [address] [place] [address] Business (1) Within 1 to 2 days Comments: Return to ED if symptoms worsen DIAGNOSIS: 1:Restless leg syndrome Normal [facility] ED Note-Nursingon 09-14-2018 ED Note-Nursing Pt up to RR, gait steady. Normal [facility] ED Note-Nursing Aware of need for urine specimen, denies urge at present, states will notify when able to produce sample, will monitor. Normal [facility] ED Note-Physicianon 09-15-19 19 [...] day(s), # 7 cap(s), Refills(s) 0, Pharmacy: [facility]/pharmacy #6177 magnesium oxide, 400 mg = 1 [...] Sayda Kelley Within 1 to 2 days [facility] [address] [place] [address]- Business (1) Additional Instructions: neurologist you may also follow up with him Charles Nicole Within 1 to 2 days [address] [place] [address]- Business (1) Additional Instructions: Return to ED if symptoms worsen Patient Education Paresthesia, Csxx-cb-Dhly Restless Legs Syndrome Problem List/Past Medical History [...] Lymph Auto: 30.6 % (09/13/18 23:03:00 EDT) Tate Auto: 7.2 % (09/13/18 23:03:00 EDT) Eos Auto: 2.2 % (09/13/18 23:03:00 EDT) Basophil Auto: 0.6 % (09/13/18 23:03:00 EDT) Neutro Absolute: 5.9 E9/L (09/13/18 23:03:00 EDT) Lymph Absolute: 3 E9/L (09/13/18 23:03:00 EDT) Tate Absolute: 0.7 E9/L (09/13/18 23:03:00 EDT) Eos [...] No qualifying data available. Normal [facility] Comment [...] Document Reviewed: 01/29/2012 ExitCare? Patient Information ?2015 [employer]. This information is not intended to replace [...] ? Drawing. ? Crawling. ? Worming. ? [place]. ? Tingling. ? Pins and needles. ? [...] Document Reviewed: 08/06/2011 ExitCare? Patient Information ?2014 [employer]. This information is not intended to replace advice given to you by your health care provider. Make sure you discuss any questions you have with your health care provider. Normal [facility] ED Patient Summaryon 019 ED Patient Summary [address] [address] Patient Discharge Instructions Person Information Name: ARIADNA HALEY Age: 37 Years Arrival Date: 09/13/2018 10:16 PM Discharge Diagnosis: 1:Restless leg syndrome Primary Care Physician: Charles Nicole DO Provider Information Primary Provider: Génesis Lozoya DO Advanced Loss Control Engineer:None The exam and treatment you received in the Emergency Department were for an urgent problem and are not intended as complete care. It is important that you follow up with a doctor, nurse practitioner, or physician?s assistant golf professional for ongoing care. If your symptoms become [...] When: Sayda Kelley [facility], [address] [place] [address] Business (1) Within 1 to 2 days Comments: neurologist you may also follow up with him With: Address: When: Charles Nicole [address] [place] [address] Business (1) Within 1 to 2 days Comments: Return to ED if symptoms worsen In the event that this physician does not participate in your insurance network, please consult with your insurance company to find a nearby participating provider. Patient Education Materials: Paresthesia, Hibj-ly-Plxx; Restless Legs Syndrome A MESSAGE TO ALL PATIENTS REGARDING OPIOIDS PRESCRIPTION OPIOIDS: WHAT YOU NEED TO KNOW Prescription opioids can be used to help relieve yadwiybn-ve-johcmq pain and are often prescribed following a [...] struggling with addiction, tell your health healthcare consultant and ask for guidance or call [facility]?S National Helpline at 7-410-252-AOCX. l Source: [place] Department of Health and Human Services/Center for Disease Control & Prevention [facility] Medications Given: Medication Dose Route Sodium Chloride 0.9% intravenous solution 1000.00 mL Initial Volume 1000.00 mL/hr IV Piggyback Left Mid Forearm Medication Information: New Medications [facility]/pharmacy #[id number], [address], [place] [id number], [phone] gabapentin (gabapentin 100 mg Cap) 1 Capsules By Mouth every day for 7 Days. Refills: 0. magnesium oxide (magnesium oxide 400 mg Tab) 1 Tabs By Mouth every day for 7 Days. Refills: 0. [facility], [address] [place], [place] [id number], [phone] gabapentin (gabapentin 100 mg Cap) 1 Capsules By Mouth every day for 7 Days. Refills: 0. magnesium oxide (magnesium oxide 400 mg Tab) 1 Tabs By Mouth every day for 7 Days. Refills: 0. Medications to Continue with No Changes Other Medications metformin (metformin 500 mg ER Tab) 250 Milligram By Mouth 2 times a day. Comment: Pharmacy Information: Thank you for choosing [facility] Patient Education Materials: Paresthesia Paresthesia [...] Document Reviewed: 01/29/2012 ExitCare? Patient Information ?2015 [employer]. This information is not intended to replace [...] ? Drawing. ? Crawling. ? Worming. ? [place]. ? Tingling. ? Pins and needles. ? [...] Document Reviewed: 08/06/2011 ExitCare? Patient Information ?2015 [employer] [facility]. This information is not intended to replace advice given to you by your health care provider. Make sure you discuss any questions you have with your health care provider. TERA Dorantes NICOLE B , have received the following patient education materials/instruction s and have verbalized understanding: Patient Education Materials: Paresthesia, Aogi-rq-Rbuq; Restless Legs Syndrome Follow-up Instructions: With: Address: [facility] [address] [place] [address] Business (1) Within 1 to 2 days Comments: neurologist you may also follow up with him With: Address: When: Charles Nicole [address] [place] [address] Business (1) Within 1 to 2 days Comments: Return to ED if symptoms worsen Prescriptions: [gabapentin (gabapentin 100 mg Cap)] [gabapentin (gabapentin 100 mg Cap)] [magnesium oxide (magnesium oxide 400 mg Tab)] [magnesium oxide (magnesium oxide 400 mg Tab)] Patient Signature ___ Clinician/Nurse Signature 09/14/18 00:21:38 Normal [facility] Hep Func Panelon 09-14-2018 Bilirubin.direct [Mass/Vol] UTC Abnormal 0.1-0.9 [facility] Comment on above: Result Comment: Resu lt verified by Discern Rule. Performed result UTC (Unable to Calculate) was sent as an Alpha code due the inability to calculate a valid numeric value. Performed By: #### 1 3212229, 6459303, 6740871, 5619616, 59621605, 3714699, 2280400, 4974459, 0910741, 52254637, 3191537 #### [facility] [address] [place] [address] Albumin [Mass/Vol] 1.1 g/dL Normal 1.1-2.2 [facility] Comment on above: Performed By: #### 1 2626183, 8138491, 3524288, 4813616, 62682847, 8895332, 3245514, 8200223, 9999299, 16078141, 5139827 #### [facility] [address] [place] [address] Albumin [Mass/Vol] 4.1 g/dL Normal 3.3-5.0 [facility] Comment on above: Performed By: #### 1 1108078, 8661132, 2850526, 4218850, 06842729, 2592879, 0282686, 7526677, 2013132, 97159488, 0911179 #### [facility] [address] [place] [address] ALP [Catalytic activity/Vol] 69 Int._Unit/L Normal 21-98 [facility] Comment on above: Performed By: #### 1 0781496, 5910927, 0075355, 8176290, 33570177, 7383458, 7194574, 8106406, 2043989, 14394764, 9322428 #### [facility] [address] [place] [address] ALT No additional P-5'-P [Catalytic activity/Vol] 27 Int._Unit/L Normal 6-46 [facility] Comment on above: Performed By: #### 1 9530966, 8591920, 3521076, 1986767, 46537347, 7771372, 5640830, 6168666, 9394660, 22045532, 8428424 #### [facility] [address] [place] [address] AST [Catalytic activity/Vol] 16 Int._Unit/L Normal 5-43 [facility] Comment on above: Performed By: #### 1 8195942, 9950376, 9221260, 9739631, 32183585, 2641887, 4872868, 5877315, 3626163, 66421151, 4843600 #### [facility] [address] [place] [address] Bilirubin [Mass/Vol] 0.5 mg/dL Normal 0.0-1.1 [facility] Comment on above: Performed By: #### 1 7625751, 9366120, 2792247, 8302555, 62564626, 5509985, 0289600, 9405502, 4603279, 52392178, 2391626 #### [facility] [address] [place] [address] Bilirubin.direct [Mass/Vol] mg/dL Normal 0.1-0.4 [facility] Comment on above: Performed By: #### 1 2727075, 8251443, 1846900, 0426631, 13307917, 3674690, 4964764, 3190857, 1000071, 59902586, 8272304 #### [facility] [address] [place] [address] Globulin (S) [Mass/Vol] 3.7 g/dL Normal 1.4-4.0 [facility] Comment on above: Performed By: #### 1 [id number], 6169331, 5806601, 6872072, 15237152, 5352379, 7571379, 3091734, 4580514, 17295249, 6891291 #### [facility] [address] [place] [address] Protein [Mass/Vol] 7.8 g/dL Normal 6.0-7.8 [facility] Comment on above: Performed By: #### 1 [id number], 3483811, 6902921, 5712236, 32757339, 4718227, 0785543, 9602183, 5808235, 78942764, 9280844 #### [facility] [address] [place] [address] Magnesiumon 09-14-2018 Magnesium [Mass/Vol] 1.9 mg/dL Normal 1.3-2.4 [facility] Comment on above: Performed By: #### 1 6062110, 9950573, 4063383, 7816117, 88068341, 5097509, 6160874, 3019294, 1779330, 28800214, 7347374 #### [facility] [address] [place] [address] Myoglobinon 09-14-2018 Myoglobin [Mass/Vol] 9 ng/mL Normal <=69 [facility] Comment on above: Performed By: #### 1 4700179, 6349846, 7959106, 9537630, 38492611, 2092192, 0894132, 8525503, 3287152, 15907953, 8455112 #### [facility] [address] [place] [address] PT & PTTon 09-14-2018 aPTT Coag (PPP) [Time] 34.5 second(s) Normal 25.1-36.5 [facility] Comment on above: Result Comment: Hepa rin therapeutic range (represented by Anti-Factor Xa activity of 0.2 - 0.4 U/mL) corresponds to PTT of 56.6 - 109.0 sec. Performed By: #### 1 0718773, 8355439, 7467247, 1589648, 60325804, 2007016, 5996726, 5957603, 0953821, 58772086, 2939656 #### [facility] [address] [place] [address] INR Coag (PPP) [Relative time] 1.0 {INR} [facility] Comment on above: Result Comment: INR results are specifically intended to assess patients stabilized on long-term Anticoagulation therapy suggested INR?s ?Less Intensive Anticoagulation? 2.0 ? 3.0 Conventional Range 3.0 ? 4.5 Performed By: #### 1 [id number], 4400710, 8320721, 6271694, 53122474, 0726147, 9106945, 5441871, 6354664, 62004006, 5022982 #### [facility] [address] [place] [address] PT Coag (PPP) [Time] 11.2 second(s) Normal 10.2-12.9 [facility] Comment on above: Performed By: #### 1 1506079, 1003711, 9774814, 3974428, 43842055, 3622751, 4787191, 9165915, 0215422, 42225939, 2216137 #### [facility] [address] [place] [address] Phosphoruson 09-14-2018 Phosphate [Mass/Vol] 3.8 mg/dL Normal 1.9-4.6 [facility] Comment on above: Performed By: #### 1 7048015, 1392852, 7720439, 2091478, 07133414, 1470500, 7197796, 0649268, 7165065, 19098703, 2715346 #### [facility] [address] [place] [address] Troponin 0 Hr.on 09-14-2018 Troponin I.cardiac [Mass/Vol] ng/mL Normal <=0.03 [facility] Comment on above: Result Comment: New Troponin Assay 10/05/13 [place] Cutoff value > or = 0.03 ng/mL in conjunction with clinical conditions of myocardial infarction. ([email or web address]) Performed By: #### 1 0428835, 0193076, 7973749, 1135538, 38451783, 0252438, 4873272, 4661022, 5653901, 44499081, 5141788 #### [facility] [address] [place] [address] UA With Cult Reflexon 2018 Bacteria LM Ql (Urine sed) TRACE Normal Trace [facility] Comment on above: Performed By: #### 1 9257887, 6689365, 7633110, 5118279, 25185110, 8425650, 3558002, 8877011, 8029341, 50686373, 6587115 #### [facility] [address] [place] [address] Bilirubin Ql (U) Negative Normal Negative [facility] Comment on above: Performed By: #### 1 7610877, 1032893, 0814081, 4297587, 92474399, 2382722, 6168146, 5599317, 7833817, 23354867, 1161774 #### [facility] [address] [place] [address] Clarity (U) CLEAR Normal Clear [facility] Comment on above: Performed By: #### 1 0828280, 1165462, 8214020, 2035485, 05815778, 2541501, 0525959, 9111724, 7769079, 51689129, 8011646 #### [facility] [address] [place] [address] Color (U) YELLOW Normal Yellow [facility] Comment on above: Performed By: #### 1 1723776, 8940340, 3952409, 7359275, 39216842, 9777473, 0079569, 3529785, 0738447, 81085215, 7977685 #### [facility] [address] [place] [address] Epithelial cells.squamous LM.HPF (Urine sed) [#/Area] 0-2 Normal 0-2 [facility] Comment on above: Performed By: #### 1 7974118, 6134691, 8240500, 9072583, 31597618, 5888537, 3069264, 5575546, 5959388, 98937801, 0075151 #### [facility] [address] [place] [address] Glucose Test strip (U) [Mass/Vol] Negative Normal Negative [facility] Comment on above: Performed By: #### 1 8164116, 7796480, 7386651, 6811807, 96135911, 7194267, 8077432, 5306193, 7815009, 21601828, 8179809 #### [facility] [address] [place] [address] Hemoglobin Ql (U) Negative Normal Negative [facility] Comment on above: Performed By: #### 1 2360904, 9288882, 8938441, 2399355, 31241580, 5415499, 9277309, 0175653, 6091957, 05825698, 2706845 #### [facility] [address] [place] [address] Ketones (U) [Mass/Vol] Negative Normal Negative [facility] Comment on above: Performed By: #### 1 1184794, 6824463, 2761294, 1462358, 99283016, 1892356, 8272273, 8489589, 2843828, 39779644, 2654615 #### [facility] [address] [place] [address] Manito.plasma/Manito .RBC (Bld) [Mass ratio] 0-3 Normal 0-3 [facility] Comment on above: Performed By: #### 1 6833673, 8616022, 5689212, 9701707, 05839149, 2858429, 9329938, 1868007, 9720051, 37344835, 1724533 #### [facility] [address] [place] [address] Mucus Ql (Urine sed) TRACE Normal [facility] Comment on above: Performed By: #### 1 2517896, 1111441, 5131471, 3622128, 37262278, 4905267, 7619559, 9943602, 8485046, 33869802, 9819851 #### [facility] [address] [place] [address] Nitrite Ql (U) Negative Normal Negative [facility] Comment on above: Performed By: #### 1 7121183, 7402397, 9133048, 6600588, 91002796, 5398698, 9207295, 1035809, 7842255, 02056724, 6408423 #### [facility] [address] [place] [address] pH (U) 6.0 [pH] 5.0-9.0 [facility] Comment on above: Performed By: #### 1 3424725, 8626467, 9442382, 5638604, 10932957, 1470290, 9255614, 6420835, 5492388, 83980393, 3330449 #### [facility] [address] [place] [address] Protein (U) [Mass/Vol] Negative Normal Negative [facility] Comment on above: Performed By: #### 1 7595737, 6276457, 1937561, 4981410, 77311558, 3838801, 7022778, 7423275, 6386939, 75695706, 2490033 #### [facility] [address] [place] [address] Specific gravity (U) [Rel density] 1.010 1.005-1.030 [facility] Comment on above: Performed By: #### 1 1957909, 9870031, 6224305, 4839562, 78740900, 8764381, 6803262, 2109050, 5502596, 42044555, 6278126 #### [facility] [address] [place] [address] UA Spec Desc Clean Catch Normal [facility] Comment on above: Performed By: #### 1 0165356, 9558501, 9975931, 8801169, 70011768, 1020454, 4133845, 2801165, 8023248, 96856887, 7473882 #### [facility] [address] [place] [address] Urobilinogen Qn (U) 0.2 {Carmella'U}/dL Normal 0.0-1.0 [facility] Comment on above: Performed By: #### 1 9629811, 3504609, 5994862, 8744726, 61475082, 4551213, 0409649, 4823043, 6769692, 92684275, 7406945 #### [facility] [address] [place] [address] WBC Auto Ql (U) Negative Normal Negative [facility] Comment on above: Performed By: #### 1 7718766, 4267393, 1372588, 3977095, 89317203, 1212498, 7557366, 9476627, 0869880, 41178299, 2428090 #### [facility] [address] [place] [address] WBC LM.HPF (Urine sed) [#/Area] 0-5 Normal 0-5 [facility] Comment on above: Performed By: #### 1 0227606, 4221271, 3345183, 8730897, 68843805, 4975220, 2391976, 7388219, 5397818, 65711500, 6945453 #### [facility] [address] [place] [address] XR Chest Single Viewon 09-14 XR Chest [...] by: minoo Technologist: AP Normal [facility] XR FOOT LEFT (MIN 3 VIEWS)on 09-14-2018 XR FOOT LEFT (MIN 3 VIEWS) Radiology exam is complete. No Radiologist dictation. Please follow up with ordering provider. Final result Normal [facility] XR FOOT RIGHT (MIN 3 VIEWS)o n 09-14-2018 XR FOOT RIGHT (MIN 3 VIEWS) Radiology exam is complete. No Radiologist dictation. Please follow up with ordering provider. Final result Normal [facility] eGFRon 09-14-2018 GFR/1.73 sq M predicted among blacks MDRD (S/P/Bld) [Vol rate/Area] mL/min/{1.73_m2} Normal >=59 [facility] Comment on above: Order Comment: Order added by Discern Expert. Result Comment: eGFR is race adjusted. AA=. Performed By: #### 1 1560686, 6748346, 3775427, 3792191, 25199645, 4221650, 2187109, 3514842, 9029140, 79249498, 0718786 #### [facility] [address] [place] [address] GFR/1.73 sq M predicted among non-blacks MDRD (S/P/Bld) [Vol rate/Area] mL/min/{1.73_m2} Normal >=59 [facility] Comment on above: Order Comment: Order added by Discern Expert. Result Comment: Desktop Support Specialist anthony kidney disease could be indicated at eGFR's of less than 60 mL/min/1.73m2. Kidney failure is indicated at less than 15 mL/min/1.73m2. Performed By: #### 1 2274533, 4380002, 2025205, 4051372, 68009050, 2793510, 5710003, 7529599, 2178582, 62854773, 0277647 #### [facility] [address] [place] [address] Vital Signs Date Time Vital Sign Value Performing Clinician Facility 03-02-2025 17:29-0400 Diastolic blood pressure 67 mm[Hg] Gay Enciso [employer] SUPERVISOR-C Work Phone: [facility] 03-02-2025 17:29-0400 Heart rate 84 /min Gayomer Johnmer [employer] AND [employer] SUPERVISOR-C Work Phone: [facility] 03-02-2025 17:29-0400 Respiratory rate 16 /min Gayomer Enciso [employer] AND [employer] SUPERVISOR-C Work Phone: [facility] 03-02-2025 17:29-0400 SaO2% (BldA) [Mass fraction] 97 % Gayomer Enciso [employer] AND [employer]IE SUPERVISOR-C Work Phone: [facility] 03-02-2025 17:29-0400 Systolic blood pressure 117 mm[Hg] Gayomer Johnmer [employer] AND D[employer] SUPERVISOR-C Work Phone: [facility] 03-02-2025 15:06-0400 Body height 170.18 cm Gayomer Johnmer [employer] AND D[employer] SUPERVISOR-C Work Phone: [facility] 03-02-2025 15:06-0400 Body temperature 98.4 [degF] Gay Enciso [employer] AND D[employer] SUPERVISOR-C Work Phone: [facility] 03-02-2025 15:06-0400 Body weight 129.27 kg Gayomer Enciso [employer] AND [employer] SUPERVISOR-C Work Phone: [facility] 02-28-2025 13:34-0400 Body height 170.18 cm Gayomer Enciso [employer] AND DIE SUPERVISOR-C Work Phone: [facility] 02-28-2025 13:34-0400 Body mass index (BMI) [Ratio] 43.8 kg/m2 Gay Enciso [employer] AND [employer] SUPERVISOR-C Work Phone: [facility] 02-28-2025 13:34-0400 Body weight 127 kg Gay Britt [employer] SUPERVISOR-C Work Phone: [facility] 02-28-2025 13:34-0400 Diastolic blood pressure 70 mm[Hg] Gay Britt [employer] AND [employer] SUPERVISOR-C Work Phone: [facility] 02-28-2025 13:34-0400 Heart rate 99 /min Gay Britt [employer] AND D[employer] SUPERVISOR-C Work Phone: [facility] 02-28-2025 13:34-0400 Respiratory rate 18 /min Gay Britt [employer] AND DIE SUPERVISOR-C Work Phone: [facility] 02-28-2025 13:34-0400 SaO2% (BldA) [Mass fraction] 95 % Gay Britt [employer] SUPERVISOR-C Work Phone: [facility] 02-28-2025 13:34-0400 Systolic blood pressure 118 mm[Hg] Gay Britt [employer] AND DIE SUPERVISOR-C Work Phone: [facility] 02-28-2025 09:25-0400 Body height 170.2 cm Terence Pacheco MD Work Phone: [facility] 02-28-2025 09:25-0400 Body mass index (BMI) [Ratio] 45.58 kg/m2 Terence Pacheco MD Work Phone: [facility] 02-28-2025 09:25-0400 Body weight 132 kg Terence Pacheco MD Work Phone: [facility] 02-28-2025 09:25-0400 Diastolic blood pressure 78 mm[Hg] Terence Pacheco MD Work Phone: [facility] 02-28-2025 09:25-0400 Systolic blood pressure 120 mm[Hg] Terence Pacheco MD Work Phone: [facility] 02-14-2025 09:42-0400 Body height 170.18 cm Gay Enciso [employer]OL AND DIE SUPERVISOR-C Work Phone: [facility] 02-14-2025 09:42-0400 Diastolic blood pressure 76 mm[Hg] Gay Britt [employer] AND DIE SUPERVISOR-C Work Phone: [facility] 02-14-2025 09:42-0400 Heart rate 65 /min Gay Britt [employer] AND DIE SUPERVISOR-C Work Phone: [facility] 02-14-2025 09:42-0400 SaO2% (BldA) [Mass fraction] 97 % Gay Britt [employer] AND D[employer] SUPERVISOR-C Work Phone: [facility] 02-14-2025 09:42-0400 Systolic blood pressure 118 mm[Hg] Gay Britt [employer] AND DIE SUPERVISOR-C Work Phone: [facility] 01-31-2025 11:40-0400 Diastolic blood pressure 80 mm[Hg] Gay Britt [employer] AND DIE SUPERVISOR-C Work Phone: [facility] 01-31-2025 11:40-0400 Heart rate 86 /min Gay Britt [employer] AND DIE SUPERVISOR-C Work Phone: [facility] 01-31-2025 11:40-0400 Respiratory rate 18 /min Gay Britt [employer] AND DIE SUPERVISOR-C Work Phone: [facility] 01-31-2025 11:40-0400 SaO2% (BldA) [Mass fraction] 94 % Gay Britt [employer] AND DIE SUPERVISOR-C Work Phone: [facility] 01-31-2025 11:40-0400 Systolic blood pressure 116 mm[Hg] Gay Britt [employer] AND DIE SUPERVISOR-C Work Phone: [facility] 01-31-2025 10:11-0400 Body height 170.18 cm Gay Britt [employer]OL AND DIE SUPERVISOR-C Work Phone: [facility] 01-31-2025 10:11-0400 Body weight 127 kg Gay Britt [employer] AND DIE SUPERVISOR-C Work Phone: [facility] 01-24-2025 14:20-0400 Diastolic blood pressure 68 mm[Hg] Chair Gabbi Work Phone: [facility] 01-24-2025 14:20-0400 Heart rate 82 /min Chair Gabbi Work Phone: [facility] 01-24-2025 14:20-0400 Respiratory rate 18 /min Chair [place] Work Phone: [facility] 01-24-2025 14:20-0400 SaO2% (BldA) [Mass fraction] 98 % Chair [place] Work Phone: [facility] 01-24-2025 14:20-0400 Systolic blood pressure 111 mm[Hg] Chair Gabbi Work Phone: [facility] 01-24-2025 10:42-0400 Body temperature 97.81 [degF] Chair [place] Work Phone: [facility] 01-17-2025 10:38-0400 Body height 170.18 cm Gay Enciso [employer]OL AND DIE SUPERVISOR-C Work Phone: [facility] 01-17-2025 10:38-0400 Diastolic blood pressure 62 mm[Hg] Gay Enciso TOOL AND DIE SUPERVISOR-C Work Phone: [facility] 01-17-2025 10:38-0400 Heart rate 92 /min Gay Johnmer [employer] AND DIE SUPERVISOR-C Work Phone: [facility] 01-17-2025 10:38-0400 SaO2% (BldA) [Mass fraction] 96 % Gay Johnmer [employer]OL AND DIE SUPERVISOR-C Work Phone: [facility] 01-17-2025 10:38-0400 Systolic blood pressure 108 mm[Hg] Gya Enciso [employer]OL AND DIE SUPERVISOR-C Work Phone: [facility] 01-11-2025 13:51-0400 Body temperature 98.29 [degF] Chair Gabbi Work Phone: [facility] 01-11-2025 13:51-0400 Diastolic blood pressure 91 mm[Hg] Chair Gabbi Work Phone: [facility] 01-11-2025 13:51-0400 Heart rate 76 /min Chair Gabbi Work Phone: [facility] 01-11-2025 13:51-0400 Respiratory rate 20 /min Chair Gabbi Work Phone: [facility] 01-11-2025 13:51-0400 SaO2% (BldA) [Mass fraction] 98 % Chair [place] Work Phone: [facility] 01-11-2025 13:51-0400 Systolic blood pressure 146 mm[Hg] Chair [place] Work Phone: [facility] 12-14-2024 14:10-0400 Diastolic blood pressure 71 mm[Hg] Chair Gabbi Work Phone: [facility] 12-14-2024 14:10-0400 Heart rate 83 /min Chair Gabbi Work Phone: [facility] 12-14-2024 14:10-0400 Respiratory rate 18 /min Chair [place] Work Phone: [facility] 12-14-2024 14:10-0400 SaO2% (BldA) [Mass fraction] 96 % Chair [place] Work Phone: [facility] 12-14-2024 14:10-0400 Systolic blood pressure 128 mm[Hg] Chair [place] Work Phone: [facility] 12-12-2024 10:45-0400 Body height 170.18 cm Gay Enciso [employer]OL AND DIE SUPERVISOR-C Work Phone: [facility] 12-12-2024 10:45-0400 Body mass index (BMI) [Ratio] 44.8 kg/m2 Gay Enciso [employer]OL AND DIE SUPERVISOR-C Work Phone: [facility] 12-12-2024 10:45-0400 Body weight 129.72 kg Gay Enciso TOOL AND DIE SUPERVISOR-C Work Phone: [facility] 12-12-2024 10:45-0400 Diastolic blood pressure 71 mm[Hg] Gay Enciso [employer]OL AND DIE SUPERVISOR-C Work Phone: [facility] 12-12-2024 10:45-0400 Heart rate 63 /min Gayomer Johnmer [employer]OL AND DIE SUPERVISOR-C Work Phone: [facility] 12-12-2024 10:45-0400 Systolic blood pressure 109 mm[Hg] Gay Britt TOOL AND DIE SUPERVISOR-C Work Phone: [facility] 11-30-2024 09:08-0400 Diastolic blood pressure 84 mm[Hg] Gay Britt TOOL AND DIE SUPERVISOR-C Work Phone: [facility] 11-30-2024 09:08-0400 Heart rate 64 /min Gay Britt TOOL AND DIE SUPERVISOR-C Work Phone: [facility] 11-30-2024 09:08-0400 SaO2% (BldA) [Mass fraction] 98 % Gay Britt [employer]OL AND DIE SUPERVISOR-C Work Phone: [facility] 11-30-2024 09:08-0400 Systolic blood pressure 120 mm[Hg] Gay Britt TOOL AND DIE SUPERVISOR-C Work Phone: [facility] 11-29-2024 14:46-0400 Body temperature 97.81 [degF] Chair [place] Work Phone: [facility] 11-29-2024 14:46-0400 Diastolic blood pressure 73 mm[Hg] Chair [place] Work Phone: [facility] 11-29-2024 14:46-0400 Heart rate 77 /min Chair [place] Work Phone: [facility] 11-29-2024 14:46-0400 Respiratory rate 18 /min Chair [place] Work Phone: [facility] 11-29-2024 14:46-0400 SaO2% (BldA) [Mass fraction] 98 % Chair [place] Work Phone: [facility] Comment on above: 11-29-2024 14:46-0400 Systolic blood pressure 122 mm[Hg] Chair [place] Work Phone: [facility] 11-29-2024 09:13-0400 Body height 170.2 cm Vaibhav Carvalho SALES APPRENTICE.[employer] Work Phone: [facility] 11-29-2024 09:13-0400 Body mass index (BMI) [Ratio] 45.12 kg/m2 Vaibhav Deven SALES APPRENTICE.[employer] Work Phone: [facility] 11-29-2024 09:13-0400 Body temperature 97.5 [degF] Vaibhav Deven SALES APPRENTICE.[employer] Work Phone: [facility] 11-29-2024 09:13-0400 Body weight 130.7 kg Vaibhav Carvalho SALES APPRENTICE.[employer] Work Phone: [facility] 11-29-2024 09:13-0400 Diastolic blood pressure 57 mm[Hg] Vaibhav Deven SALES APPRENTICE.[employer] Work Phone: [facility] 11-29-2024 09:13-0400 Heart rate 88 /min Vaibhav Hernandezod SALES APPRENTICE.[employer] Work Phone: [facility] 11-29-2024 09:13-0400 Respiratory rate 18 /min Vaibhav Deven SALES APPRENTICE.[employer] Work Phone: [facility] 11-29-2024 09:13-0400 SaO2% (BldA) [Mass fraction] 98 % Vaibhav Carvalho SALES APPRENTICE.[employer] Work Phone: [facility] 11-29-2024 09:13-0400 Systolic blood pressure 113 mm[Hg] Vaibhav Deven SALES APPRENTICE.[employer] Work Phone: [facility] 11-16-2024 13:47-0400 Body temperature 98.01 [degF] Chair Gabbi Work Phone: [facility] 11-16-2024 13:47-0400 Diastolic blood pressure 70 mm[Hg] Chair [place] Work Phone: [facility] 11-16-2024 13:47-0400 Heart rate 89 /min Chair [place] Work Phone: [facility] 11-16-2024 13:47-0400 Respiratory rate 20 /min Chair Gabbi Work Phone: [facility] 11-16-2024 13:47-0400 SaO2% (BldA) [Mass fraction] 97 % Chair [place] Work Phone: [facility] 11-16-2024 13:47-0400 Systolic blood pressure 101 mm[Hg] Chair [place] Work Phone: [facility] 11-13-2024 11:17-0400 Body height 170.18 cm Gay Johnmer TOOL AND DIE SUPERVISOR-C Work Phone: [facility] 11-13-2024 11:17-0400 Body mass index (BMI) [Ratio] 44.1 kg/m2 Gay Johnmer TOOL AND DIE SUPERVISOR-C Work Phone: [facility] 11-13-2024 11:17-0400 Body weight 127.91 kg Gay Johnmer TOOL AND DIE SUPERVISOR-C Work Phone: [facility] 11-13-2024 11:17-0400 Diastolic blood pressure 78 mm[Hg] Gayomer Johnmer TOOL AND DIE SUPERVISOR-C Work Phone: [facility] 11-13-2024 11:17-0400 Heart rate 96 /min Gay Johnmer TOOL AND DIE SUPERVISOR-C Work Phone: [facility] 11-13-2024 11:17-0400 Systolic blood pressure 104 mm[Hg] Gayomer Johnmer TOOL AND DIE SUPERVISOR-C Work Phone: [facility] 10-31-2024 14:46-0400 Diastolic blood pressure 76 mm[Hg] Chair [place] Work Phone: [facility] 10-31-2024 14:46-0400 Heart rate 68 /min Chair [place] Work Phone: [facility] 10-31-2024 14:46-0400 Respiratory rate 20 /min Chair [place] Work Phone: [facility] 10-31-2024 14:46-0400 SaO2% (BldA) [Mass fraction] 94 % Chair [place] Work Phone: [facility] Comment on above: RA 10-31-2024 14:46-0400 Systolic blood pressure 133 mm[Hg] Chair [place] Work Phone: [facility] 10-31-2024 09:19-0400 Body temperature 97.81 [degF] Chair [place] Work Phone: [facility] 2024 14:16-0400 Body mass index (BMI) [Ratio] 44.01 kg/m2 Chair [place] Work Phone: [facility] 2024 14:16-0400 Body temperature 97.59 [degF] Chair [place] Work Phone: [facility] 2024 14:16-0400 Body weight 127.5 kg Chair [place] Work Phone: [facility] 2024 14:16-0400 Diastolic blood pressure 78 mm[Hg] Chair [place] Work Phone: [facility] 2024 14:16-0400 Heart rate 85 /min Chair [place] Work Phone: [facility] 2024 14:16-0400 Respiratory rate 16 /min Chair Gabbi Work Phone: [facility] 2024 14:16-0400 SaO2% (BldA) [Mass fraction] 96 % Chair Gabbi Work Phone: [facility] 2024 14:16-0400 Systolic blood pressure 113 mm[Hg] Chair [place] Work Phone: [facility] 10-02-2024 14:15-0400 Body temperature 98.29 [degF] Chair Gabbi Work Phone: [facility] 10-02-2024 14:15-0400 Diastolic blood pressure 80 mm[Hg] Chair [place] Work Phone: [facility] 10-02-2024 14:15-0400 Heart rate 76 /min Chair [place] Work Phone: [facility] 10-02-2024 14:15-0400 Respiratory rate 16 /min Chair [place] Work Phone: [facility] 10-02-2024 14:15-0400 SaO2% (BldA) [Mass fraction] 97 % Chair Gabbi Work Phone: [facility] 10-02-2024 14:15-0400 Systolic blood pressure 129 mm[Hg] Chair Gabbi Work Phone: [facility] 09-18-2024 13:20-0400 Body temperature 97.59 [degF] Chair [place] Work Phone: [facility] 09-18-2024 13:20-0400 Diastolic blood pressure 84 mm[Hg] Chair [place] Work Phone: [facility] 09-18-2024 13:20-0400 Heart rate 107 /min Chair [place] Work Phone: [facility] 09-18-2024 13:20-0400 Respiratory rate 18 /min Chair [place] Work Phone: [facility] 09-18-2024 13:20-0400 SaO2% (BldA) [Mass fraction] 97 % Chair [place] Work Phone: [facility] 09-18-2024 13:20-0400 Systolic blood pressure 115 mm[Hg] Chair Gabbi Work Phone: [facility] 09-06-2024 16:17-0400 Heart rate 90 /min Gay Enciso TOOL [employer] DIE SUPERVISOR-C Work Phone: [facility] 09-06-2024 16:17-0400 SaO2% (BldA) [Mass fraction] 97 % Gay Enciso TOOL AND DIE SUPERVISOR-C Work Phone: [facility] 09-06-2024 13:54-0400 Diastolic blood pressure 69 mm[Hg] Chair [place] Work Phone: [facility] 09-06-2024 13:54-0400 Heart rate 90 /min Chair Gabbi Work Phone: [facility] 09-06-2024 13:54-0400 Respiratory rate 18 /min Chair Gabbi Work Phone: [facility] 09-06-2024 13:54-0400 SaO2% (BldA) [Mass fraction] 97 % Chair Gabbi Work Phone: [facility] 09-06-2024 13:54-0400 Systolic blood pressure 110 mm[Hg] Chair Gabbi Work Phone: [facility] 09-06-2024 08:43-0400 Body height 170.2 cm Vaibahv Deven SALES APPRENTICE.[employer] Work Phone: [facility] 09-06-2024 08:43-0400 Body mass index (BMI) [Ratio] 45.5 kg/m2 Vaibhav Deven SALES APPRENTICE.[employer] Work Phone: [facility] 09-06-2024 08:43-0400 Body temperature 97.5 [degF] Vaibhav Deven SALES APPRENTICE.[employer] Work Phone: [facility] 09-06-2024 08:43-0400 Body weight 131.8 kg Vaibhav Deven SALES APPRENTICE.[employer] Work Phone: [facility] 09-06-2024 08:43-0400 Diastolic blood pressure 64 mm[Hg] Vaibhav Deven SALES APPRENTICE.[employer] Work Phone: [facility] 09-06-2024 08:43-0400 Heart rate 77 /min Vaibhav Deven SALES APPRENTICE.[employer] Work Phone: [facility] 09-06-2024 08:43-0400 Respiratory rate 18 /min Vaibhav Deven SALES APPRENTICE.[employer] Work Phone: [facility] 09-06-2024 08:43-0400 SaO2% (BldA) [Mass fraction] 97 % Vaibhav Carvalho SALES APPRENTICE.[employer] Work Phone: [facility] 09-06-2024 08:43-0400 Systolic blood pressure 116 mm[Hg] Vaibhav Carvalho SALES APPRENTICE.[employer] Work Phone: [facility] 09-04-2024 15:04-0400 Body height 170.2 cm Gordo Barfield MD Work Phone: [facility] 09-04-2024 15:04-0400 Body mass index (BMI) [Ratio] 44.32 kg/m2 Gordo Barfield MD Work Phone: [facility] 09-04-2024 15:04-0400 Body weight 128.37 kg Gordo Barfield MD Work Phone: [facility] 09-04-2024 15:04-0400 Diastolic blood pressure 73 mm[Hg] Gordo Barfield MD Work Phone: [facility] 09-04-2024 15:04-0400 Heart rate 101 /min Gordo Barfield MD Work Phone: [facility] 09-04-2024 15:04-0400 Systolic blood pressure 112 mm[Hg] Gordo Barfield MD Work Phone: [facility] 08-08-2024 14:36-0400 Diastolic blood pressure 87 mm[Hg] Chair [place] Work Phone: [facility] 08-08-2024 14:36-0400 Heart rate 83 /min Chair [place] Work Phone: [facility] 08-08-2024 14:36-0400 Respiratory rate 18 /min Chair [place] Work Phone: [facility] 08-08-2024 14:36-0400 SaO2% (BldA) [Mass fraction] 97 % Chair [place] Work Phone: [facility] 08-08-2024 14:36-0400 Systolic blood pressure 129 mm[Hg] Chair [place] Work Phone: [facility] 08-08-2024 10:54-0400 Body temperature 98.01 [degF] Chair Reese Work Phone: [facility] 07-31-2024 16:05-0400 Diastolic blood pressure 70 mm[Hg] Gay Britt [employer] DIE SUPERVISOR-C Work Phone: [facility] 07-31-2024 16:05-0400 Heart rate 108 /min Gay Britt [employer] DIE SUPERVISOR-C Work Phone: [facility] 07-31-2024 16:05-0400 SaO2% (BldA) [Mass fraction] 96 % Gay Britt TOOL AND DIE SUPERVISOR-C Work Phone: [facility] 07-31-2024 16:05-0400 Systolic blood pressure 104 mm[Hg] Gay Britt TOOL AND DIE SUPERVISOR-C Work Phone: [facility] 07-26-2024 15:06-0500 Body height 170.2 cm Lois Holm MD Work Phone: [facility] 07-26-2024 15:06-0500 Body mass index (BMI) [Ratio] 44.92 kg/m2 Lois Holm MD Work Phone: [facility] 07-26-2024 15:06-0500 Body weight 130.09 kg Lois Holm MD Work Phone: [facility] 07-26-2024 15:06-0500 Diastolic blood pressure 60 mm[Hg] Lois Holm MD Work Phone: [facility] 07-26-2024 15:06-0500 Heart rate 84 /min Lois Holm MD Work Phone: [facility] 07-26-2024 15:06-0500 Systolic blood pressure 100 mm[Hg] Lois Holm MD Work Phone: [facility] 07-19-2024 11:27-0500 Diastolic blood pressure 90 mm[Hg] Gay Britt [employer]OL AND DIE SUPERVISOR-C Work Phone: [facility] 07-19-2024 11:27-0500 Heart rate 78 /min Gay Enciso TOOL AND DIE SUPERVISOR-C Work Phone: [facility] 07-19-2024 11:27-0500 Respiratory rate 16 /min Gay Enciso TOOL AND DIE SUPERVISOR-C Work Phone: [facility] 07-19-2024 11:27-0500 SaO2% (BldA) [Mass fraction] 96 % Gay Enciso TO[employer] AND DIE SUPERVISOR-C Work Phone: [facility] 07-19-2024 11:27-0500 Systolic blood pressure 126 mm[Hg] Gay Enciso TOOL AND DIE SUPERVISOR-C Work Phone: [facility] 07-19-2024 09:54-0500 Body height 170.18 cm Gay Enciso TOOL AND DIE SUPERVISOR-C Work Phone: [facility] 07-19-2024 09:54-0500 Body weight 127 kg Gay Enciso TOOL AND DIE SUPERVISOR-C Work Phone: [facility] 07-12-2024 14:16-0500 Body temperature 96.91 [degF] Marky Barnes PA-C Work Phone: [facility] 07-11-2024 14:30-0500 Body temperature 97.39 [degF] Chair [place] Work Phone: [facility] 07-11-2024 14:30-0500 Diastolic blood pressure 80 mm[Hg] Chair Gabbi Work Phone: [facility] 07-11-2024 14:30-0500 Heart rate 69 /min Chair [place] Work Phone: [facility] 07-11-2024 14:30-0500 Respiratory rate 18 /min Chair Gabbi Work Phone: [facility] 07-11-2024 14:30-0500 SaO2% (BldA) [Mass fraction] 98 % Chair [place] Work Phone: [facility] 07-11-2024 14:30-0500 Systolic blood pressure 119 mm[Hg] Chair Gabbi Work Phone: [facility] 07-10-2024 15:25-0500 Diastolic blood pressure 70 mm[Hg] [facility] 07-10-2024 15:25-0500 Heart rate 106 /min [facility] 07-10-2024 15:25-0500 SaO2% (BldA) [Mass fraction] 97 % [facility] 07-10-2024 15:25-0500 Systolic blood pressure 102 mm[Hg] [facility] 06-13-2024 14:55-0500 Diastolic blood pressure 56 mm[Hg] Chair [place] Work Phone: [facility] 06-13-2024 14:55-0500 Heart rate 70 /min Chair [place] Work Phone: [facility] 06-13-2024 14:55-0500 Respiratory rate 18 /min Chair Gabbi Work Phone: [facility] 06-13-2024 14:55-0500 SaO2% (BldA) [Mass fraction] 98 % Chair [place] Work Phone: [facility] 06-13-2024 14:55-0500 Systolic blood pressure 93 mm[Hg] Chair Gabbi Work Phone: [facility] 06-13-2024 08:55-0500 Body mass index (BMI) [Ratio] 45.08 kg/m2 Vaibhav Carvalho APRN.[employer] Work Phone: [facility] 06-13-2024 08:55-0500 Body temperature 97.59 [degF] Vaibhav Carvalho SALES APPRENTICE.[employer] Work Phone: [facility] 06-13-2024 08:55-0500 Body weight 130.6 kg Vaibhav Carvalho APRN.[employer] Work Phone: [facility] 06-13-2024 08:55-0500 Diastolic blood pressure 71 mm[Hg] Vaibhav Carvalho APRN.[employer] Work Phone: [facility] 06-13-2024 08:55-0500 Heart rate 79 /min Vaibhav Deven SALES APPRENTICE.[employer] Work Phone: [facility] 06-13-2024 08:55-0500 Respiratory rate 16 /min Vaibhav Deven SALES APPRENTICE.[employer] Work Phone: [facility] 06-13-2024 08:55-0500 SaO2% (BldA) [Mass fraction] 98 % Vaibhav Deven SALES APPRENTICE.[employer] Work Phone: [facility] 06-13-2024 08:55-0500 Systolic blood pressure 106 mm[Hg] Vaibhav Deven SALES APPRENTICE.[employer] Work Phone: [facility] 06-06-2024 11:37-0500 Body mass index (BMI) [Ratio] 45.08 kg/m2 Oly WARREN Work Phone: [facility] 06-06-2024 11:37-0500 Body weight 130.54 kg Oly Plascencia PA Work Phone: [facility] 06-06-2024 11:37-0500 Diastolic blood pressure 70 mm[Hg] Oly Plascencia PA Work Phone: [facility] 06-06-2024 11:37-0500 Systolic blood pressure 120 mm[Hg] Oly Plascencia PA Work Phone: [facility] 05-19-2024 15:02-0500 Body temperature 97.3 [degF] Chair Gabbi Work Phone: [facility] 05-19-2024 15:02-0500 Diastolic blood pressure 63 mm[Hg] Chair [place] Work Phone: [facility] 05-19-2024 15:02-0500 Heart rate 73 /min Chair [place] Work Phone: [facility] 05-19-2024 15:02-0500 Respiratory rate 20 /min Chair Gabbi Work Phone: [facility] 05-19-2024 15:02-0500 SaO2% (BldA) [Mass fraction] 98 % Chair [place] Work Phone: [facility] Comment on above: RA 05-19-2024 15:02-0500 Systolic blood pressure 114 mm[Hg] Chair [place] Work Phone: [facility] 04-26-2024 09:31-0500 Body temperature 97.59 [degF] Ma Sand Work Phone: [facility] 04-26-2024 09:31-0500 Diastolic blood pressure 78 mm[Hg] Ma Sand Work Phone: [facility] Comment on above: Manual 04-26-2024 09:31-0500 Heart rate 66 /min Ma Sand Work Phone: [facility] 04-26-2024 09:31-0500 Respiratory rate 16 /min Ma Sand Work Phone: [facility] 04-26-2024 09:31-0500 SaO2% (BldA) [Mass fraction] 99 % Ma Sand Work Phone: [facility] 04-26-2024 09:31-0500 Systolic blood pressure 122 mm[Hg] Ma Sand Work Phone: [facility] Comment on above: Manual 04-10-2024 10:12-0500 Body height 170.2 cm Gordo Barfield MD Work Phone: [facility] 04-10-2024 10:12-0500 Body mass index (BMI) [Ratio] 44.95 kg/m2 Gordo Barfield MD Work Phone: [facility] 04-10-2024 10:12-0500 Body weight 130.18 kg Gordo Barfield MD Work Phone: [facility] 04-10-2024 10:12-0500 Diastolic blood pressure 70 mm[Hg] Gordo Barfield MD Work Phone: [facility] 04-10-2024 10:12-0500 Systolic blood pressure 110 mm[Hg] Gordo Barfield MD Work Phone: [facility] 04-06-2024 10:00-0500 Body height 170.2 cm Hayden Arciniega MD Work Phone: [facility] 04-06-2024 10:00-0500 Body mass index (BMI) [Ratio] 43.07 kg/m2 Hayden Arciniega MD Work Phone: [facility] 04-06-2024 10:00-0500 Body temperature 97 [degF] Hayden Arciniega MD Work Phone: [facility] 04-06-2024 10:00-0500 Body weight 124.74 kg Hayden Arciniega MD Work Phone: [facility] 04-06-2024 10:00-0500 Diastolic blood pressure 80 mm[Hg] Hayden Arciniega MD Work Phone: [facility] 04-06-2024 10:00-0500 Heart rate 86 /min Hayden Arciniega MD Work Phone: [facility] 04-06-2024 10:00-0500 SaO2% (BldA) [Mass fraction] 97 % Hayden Arciniega MD Work Phone: [facility] 04-06-2024 10:00-0500 Systolic blood pressure 136 mm[Hg] Hayden Arciniega MD Work Phone: [facility] 04-02-2024 13:27-0500 Body mass index (BMI) [Ratio] 45.42 kg/m2 Marky Mike DO Work Phone: [facility] 04-02-2024 13:27-0500 Body temperature 98.71 [degF] Marky Mike DO Work Phone: [facility] 04-02-2024 13:27-0500 Body weight 131.54 kg Marky Mike DO Work Phone: [facility] 04-02-2024 13:27-0500 Diastolic blood pressure 90 mm[Hg] Marky Mike DO Work Phone: [facility] 04-02-2024 13:27-0500 Heart rate 78 /min Marky Mike DO Work Phone: [facility] 04-02-2024 13:27-0500 SaO2% (BldA) [Mass fraction] 99 % Marky Mike DO Work Phone: [facility] 04-02-2024 13:27-0500 Systolic blood pressure 132 mm[Hg] Marky Mike DO Work Phone: [facility] 03-23-2024 14:35-0400 Body mass index (BMI) [Ratio] 44.17 kg/m2 Oly Temo PA Work Phone: [facility] 03-23-2024 14:35-0400 Body weight 127.91 kg Oly [place] PA Work Phone: [facility] 03-23-2024 14:35-0400 Diastolic blood pressure 76 mm[Hg] Oly Temo PA Work Phone: [facility] 03-23-2024 14:35-0400 Systolic blood pressure 122 mm[Hg] Oly Temo PA Work Phone: [facility] 03-23-2024 10:11-0400 Body height 170.2 cm Ma Sand Work Phone: [facility] 03-23-2024 10:11-0400 Body mass index (BMI) [Ratio] 43.06 kg/m2 Ma Sand Work Phone: [facility] 03-23-2024 10:11-0400 Body temperature 97.59 [degF] Ma Sand Work Phone: [facility] 03-23-2024 10:11-0400 Body weight 124.74 kg Ma Sand Work Phone: [facility] 03-23-2024 10:11-0400 Diastolic blood pressure 85 mm[Hg] Ma Sand Work Phone: [facility] 03-23-2024 10:11-0400 Heart rate 71 /min Ma Sand Work Phone: [facility] 03-23-2024 10:11-0400 Respiratory rate 16 /min Ma Sand Work Phone: [facility] 03-23-2024 10:11-0400 SaO2% (BldA) [Mass fraction] 94 % Ma Sand Work Phone: [facility] 03-23-2024 10:11-0400 Systolic blood pressure 135 mm[Hg] Ma Sand Work Phone: [facility] 03-16-2024 11:24-0400 Body mass index (BMI) [Ratio] 43.67 kg/m2 Luan Skip DO Work Phone: [facility] 03-16-2024 11:24-040 Body weight 126.46 kg Luan Skip DO Work Phone: [facility] 03-16-2024 11:24-0400 Diastolic blood pressure 70 mm[Hg] Luan Skip DO Work Phone: [facility] 03-16-2024 11:24-0400 Systolic blood pressure 120 mm[Hg] Luan Skip DO Work Phone: [facility] 03-16-2024 09:20-0400 Body height 170.18 cm [employer]IE SUPERVISOR-C Gay Enciso Work Phone: [facility] 03-16-2024 09:20-0400 Body mass index (BMI) [Ratio] 43 kg/m2 [employer] SUPERVISOR-C Gay Johnmer Work Phone: [facility] 03-16-2024 09:20-0400 Body weight 124.73 kg [employer] SUPERVISOR-C Gay Johnmer Work Phone: [facility] 02-21-2024 11:04-0400 Body temperature 97.2 [degF] Ma Sand Work Phone: [facility] 02-21-2024 11:04-0400 Diastolic blood pressure 68 mm[Hg] Ma Sand Work Phone: [facility] Comment on above: manual 02-21-2024 11:04-0400 Heart rate 95 /min Ma Sand Work Phone: [facility] 02-21-2024 11:04-0400 Respiratory rate 16 /min Ma Sand Work Phone: [facility] 02-21-2024 11:04-0400 SaO2% (BldA) [Mass fraction] 98 % Ma Sand Work Phone: [facility] 02-21-2024 11:04-0400 Systolic blood pressure 102 mm[Hg] Ma Sand Work Phone: [facility] Comment on above: manual 02-16-2024 09:23-0400 Diastolic blood pressure 72 mm[Hg] [employer] SUPERVISOR-C Gay Britt Work Phone: [facility] 02-16-2024 09:23-0400 Heart rate 70 /min [employer] SUPERVISOR-C Gay Britt Work Phone: [facility] 02-16-2024 09:23-0400 Respiratory rate 16 /min [employer] SUPERVISOR-C Gay Britt Work Phone: [facility] 02-16-2024 09:23-0400 SaO2% (BldA) [Mass fraction] 96 % [employer] SUPERVISOR-C Gay Britt Work Phone: [facility] 02-16-2024 09:23-0400 Systolic blood pressure 126 mm[Hg] [employer] SUPERVISOR-C Gay Britt Work Phone: [facility] 02-16-2024 07:27-0400 Body height 170.18 cm TO[employer] DIE SUPERVISOR-C Gay Britt Work Phone: [facility] 02-16-2024 07:27-0400 Body weight 122.46 kg TO[employer] DIE SUPERVISOR-C Gay Britt Work Phone: [facility] 01-28-2024 11:31-0400 Body weight 126.6 kg [facility] 01-28-2024 11:31-0400 Diastolic blood pressure 80 mm[Hg] [facility] 01-28-2024 11:31-0400 Heart rate 69 /min [facility] 01-28-2024 11:31-0400 SaO2% (BldA) [Mass fraction] 98 % [facility] 01-28-2024 11:31-0400 Systolic blood pressure 120 mm[Hg] [facility] 01-25-2024 11:30-0400 Body temperature 97.39 [degF] Ma Sand Work Phone: [facility] 01-25-2024 11:30-0400 Diastolic blood pressure 67 mm[Hg] Ma Sand Work Phone: [facility] 01-25-2024 11:30-0400 Heart rate 68 /min Ma Sand Work Phone: [facility] 01-25-2024 11:30-0400 Respiratory rate 16 /min Ma Sand Work Phone: [facility] 01-25-2024 11:30-0400 SaO2% (BldA) [Mass fraction] 99 % Ma Sand Work Phone: [facility] 01-25-2024 11:30-0400 Systolic blood pressure 92 mm[Hg] Ma Sand Work Phone: [facility] 12-27-2023 11:16-0400 Diastolic blood pressure 68 mm[Hg] Neda Liz PA-C Work Phone: [facility] 12-27-2023 11:16-0400 Systolic blood pressure 98 mm[Hg] Neda Liz PA-C Work Phone: [facility] 12-27-2023 11:02-0400 Body height 170.2 cm Neda Liz PA-C Work Phone: [facility] 12-27-2023 11:02-0400 Body mass index (BMI) [Ratio] 43.08 kg/m2 Neda Liz PA-C Work Phone: [facility] 12-27-2023 11:02-0400 Body temperature 97.7 [degF] Neda Liz PA-C Work Phone: [facility] 12-27-2023 11:02-0400 Body weight 124.8 kg Neda Liz PA-C Work Phone: [facility] 12-27-2023 11:02-0400 Heart rate 89 /min Neda Hill PA-C Work Phone: [facility] 12-27-2023 11:02-0400 Respiratory rate 16 /min Neda Hill PA-C Work Phone: [facility] 12-27-2023 11:02-0400 SaO2% (BldA) [Mass fraction] 98 % Neda Hill PA-C Work Phone: [facility] 12-16-2023 14:13-0400 Body height 170.18 cm [facility] 12-16-2023 14:13-0400 Body mass index (BMI) [Ratio] 42.7 kg/m2 [facility] 12-16-2023 14:13-0400 Body temperature 98.6 [degF] [facility] 12-16-2023 14:13-0400 Body weight 123.83 kg [facility] 12-16-2023 14:13-0400 Diastolic blood pressure 73 mm[Hg] [facility] 12-16-2023 14:13-0400 Heart rate 75 /min [facility] 12-16-2023 14:13-0400 Systolic blood pressure 106 mm[Hg] [facility] 11-29-2023 13:43-0400 Body temperature 97.59 [degF] Ma Sand Work Phone: [facility] 11-29-2023 13:43-0400 Diastolic blood pressure 51 mm[Hg] Ma Sand Work Phone: [facility] 11-29-2023 13:43-0400 Heart rate 73 /min Ma Sand Work Phone: [facility] 11-29-2023 13:43-0400 Respiratory rate 16 /min Ma Sand Work Phone: [facility] 11-29-2023 13:43-0400 SaO2% (BldA) [Mass fraction] 96 % Ma Sand Work Phone: [facility] 11-29-2023 13:43-0400 Systolic blood pressure 83 mm[Hg] Ma Sand Work Phone: [facility] 11-04-2023 13:55-0400 Body height 170.18 cm [facility] 11-04-2023 13:55-0400 Body temperature 97.3 [degF] [facility] 11-04-2023 13:55-0400 Diastolic blood pressure 54 mm[Hg] [facility] 11-04-2023 13:55-0400 Heart rate 62 /min [facility] 11-04-2023 13:55-0400 Systolic blood pressure 104 mm[Hg] [facility] 10-27-2023 14:44-0400 Body temperature 97 [degF] Ma Sand Work Phone: [facility] 10-27-2023 14:44-0400 Diastolic blood pressure 72 mm[Hg] Ma Sand Work Phone: [facility] 10-27-2023 14:44-0400 Heart rate 97 /min Ma Sand Work Phone: [facility] 10-27-2023 14:44-0400 Respiratory rate 18 /min Ma Sand Work Phone: [facility] 10-27-2023 14:44-0400 SaO2% (BldA) [Mass fraction] 97 % Ma Sand Work Phone: [facility] 10-27-2023 14:44-0400 Systolic blood pressure 110 mm[Hg] Ma Sand Work Phone: [facility] 10-20-2023 13:10-0400 Body height 170.18 cm [facility] 10-20-2023 13:10-0400 Body mass index (BMI) [Ratio] 43.2 kg/m2 [facility] 10-20-2023 13:10-0400 Body temperature 97.3 [degF] [facility] 10-20-2023 13:10-0400 Body weight 125.19 kg [facility] 10-20-2023 13:10-0400 Diastolic blood pressure 54 mm[Hg] [facility] 10-20-2023 13:10-0400 Heart rate 74 /min [facility] 10-20-2023 13:10-0400 Systolic blood pressure 111 mm[Hg] [facility] 09-30-2023 10:48-0400 Body temperature 97 [degF] Ma Sand Work Phone: [facility] 09-30-2023 10:48-0400 Diastolic blood pressure 82 mm[Hg] Ma Sand Work Phone: [facility] 09-30-2023 10:48-0400 Heart rate 71 /min Ma Sand Work Phone: [facility] 09-30-2023 10:48-0400 Respiratory rate 18 /min Ma Sand Work Phone: [facility] 09-30-2023 10:48-0400 SaO2% (BldA) [Mass fraction] 97 % Ma Sand Work Phone: [facility] 09-30-2023 10:48-0400 Systolic blood pressure 132 mm[Hg] Ma Sand Work Phone: [facility] 09-22-2023 14:41-0400 Body weight 117.93 kg [facility] 08-31-2023 10:34-0400 Body temperature 97.3 [degF] Ma Sand Work Phone: [facility] 08-31-2023 10:34-0400 Diastolic blood pressure 66 mm[Hg] Ma Sand Work Phone: [facility] 08-31-2023 10:34-0400 Heart rate 68 /min Ma Sand Work Phone: [facility] 08-31-2023 10:34-0400 Respiratory rate 18 /min Ma Sand Work Phone: [facility] 08-31-2023 10:34-0400 SaO2% (BldA) [Mass fraction] 99 % Ma Sand Work Phone: [facility] 08-31-2023 10:34-0400 Systolic blood pressure 105 mm[Hg] Ma Sand Work Phone: [facility] 08-05-2023 11:15-0400 Body temperature 97.39 [degF] Ma Sand Work Phone: [facility] 08-05-2023 11:15-0400 Diastolic blood pressure 41 mm[Hg] Ma Sand Work Phone: [facility] 08-05-2023 11:15-0400 Heart rate 68 /min Ma Sand Work Phone: [facility] 08-05-2023 11:15-0400 Respiratory rate 18 /min Ma Sand Work Phone: [facility] 08-05-2023 11:15-0400 SaO2% (BldA) [Mass fraction] 98 % Ma Sand Work Phone: [facility] 08-05-2023 11:15-0400 Systolic blood pressure 98 mm[Hg] Ma Sand Work Phone: [facility] 07-13-2023 11:49-0500 Body temperature 97.5 [degF] Ma Sand Work Phone: [facility] 07-13-2023 11:49-0500 Diastolic blood pressure 74 mm[Hg] Ma Sand Work Phone: [facility] 07-13-2023 11:49-0500 Heart rate 83 /min Ma Sand Work Phone: [facility] 07-13-2023 11:49-0500 Respiratory rate 18 /min Ma Sand Work Phone: [facility] 07-13-2023 11:49-0500 SaO2% (BldA) [Mass fraction] 96 % Ma Sand Work Phone: [facility] 07-13-2023 11:49-0500 Systolic blood pressure 109 mm[Hg] Ma Sand Work Phone: [facility] 07-13-2023 10:01-0500 Diastolic blood pressure 65 mm[Hg] Lois Holm MD Work Phone: [facility] 07-13-2023 10:01-0500 Systolic blood pressure 105 mm[Hg] Lois Holm MD Work Phone: [facility] 07-13-2023 09:41-0500 Body height 170.2 cm Lois Holm MD Work Phone: [facility] 07-13-2023 09:41-0500 Body mass index (BMI) [Ratio] 43.85 kg/m2 Lios Holm MD Work Phone: [facility] 07-13-2023 09:41-0500 Body weight 127.01 kg Lois Holm MD Work Phone: [facility] 07-13-2023 09:41-0500 Heart rate 71 /min Lois Holm MD Work Phone: [facility] 07-06-2023 14:48-0500 Body mass index (BMI) [Ratio] 41.81 kg/m2 Kade Richardson MD Work Phone: [facility] 07-06-2023 14:48-0500 Body weight 119.3 kg Kade Richardson MD Work Phone: [facility] 06-09-2023 08:45-0500 Body height 170.2 cm Michelle Jasmine APRN-[employer] Work Phone: [facility] 06-09-2023 08:45-0500 Body mass index (BMI) [Ratio] 44.48 kg/m2 Michelle Jasmine APRN-[employer] Work Phone: [facility] 06-09-2023 08:45-0500 Body weight 128.82 kg Michelle Jasmine APRN-[employer] Work Phone: [facility] 06-09-2023 08:45-0500 Diastolic blood pressure 82 mm[Hg] Michelle Jasmine APRN-CORK MIXER Work Phone: [facility] 06-09-2023 08:45-0500 Heart rate 80 /min Michelle Jasmine SALES APPRENTICE-[employer] Work Phone: [facility] 06-09-2023 08:45-0500 Systolic blood pressure 146 mm[Hg] Michelle Jasmine SALES APPRENTICE-CORK MIXER Work Phone: [facility] 05-26-2023 17:17-0500 Body weight 123.83 kg Christie Phan MD Work Phone: [facility] 04-26-2023 14:42-0500 Body weight 125.19 kg Christie Phan MD Work Phone: [facility] 03-19-2023 11:16-0400 Body temperature 97.7 [degF] Ma Sand Work Phone: [facility] 03-19-2023 11:16-0400 Diastolic blood pressure 54 mm[Hg] Ma Sand Work Phone: [facility] 03-19-2023 11:16-0400 Heart rate 75 /min Ma Sand Work Phone: [facility] 03-19-2023 11:16-0400 Respiratory rate 16 /min Ma Sand Work Phone: [facility] 03-19-2023 11:16-0400 SaO2% (BldA) [Mass fraction] 96 % Ma Sand Work Phone: [facility] 03-19-2023 11:16-0400 Systolic blood pressure 111 mm[Hg] Ma Sand Work Phone: [facility] 02-19-2023 10:56-0400 Body height 170.2 cm Vera Najera MD Work Phone: [facility] 02-19-2023 10:56-0400 Body temperature 97.39 [degF] Vera Najera MD Work Phone: [facility] 02-19-2023 10:56-0400 Body weight 120.75 kg Vera Najera MD Work Phone: [facility] 02-19-2023 10:56-0400 Diastolic blood pressure 69 mm[Hg] Vera Najera MD Work Phone: [facility] 02-19-2023 10:56-0400 Heart rate 110 /min Vera Najera MD Work Phone: [facility] 02-19-2023 10:56-0400 Respiratory rate 16 /min Vera Najera MD Work Phone: [facility] 02-19-2023 10:56-0400 SaO2% (BldA) [Mass fraction] 96 % Vera Najera MD Work Phone: [facility] 02-19-2023 10:56-0400 Systolic blood pressure 132 mm[Hg] Vera Najera MD Work Phone: [facility] 01-22-2023 12:09-0400 Diastolic blood pressure 76 mm[Hg] Ma Sand Work Phone: [facility] 01-22-2023 12:09-0400 Systolic blood pressure 107 mm[Hg] Ma Sand Work Phone: [facility] 01-22-2023 12:08-0400 Body temperature 97.59 [degF] Ma Sand Work Phone: [facility] 01-22-2023 12:08-0400 Heart rate 102 /min Ma Sand Work Phone: [facility] 01-22-2023 12:08-0400 Respiratory rate 16 /min Ma Sand Work Phone: [facility] 01-22-2023 12:08-0400 SaO2% (BldA) [Mass fraction] 97 % Ma Sand Work Phone: [facility] 11-19-2022 11:00-0400 Body temperature 97.2 [degF] Ma Sand Work Phone: [facility] 11-19-2022 11:00-0400 Diastolic blood pressure 54 mm[Hg] Ma Sand Work Phone: [facility] 11-19-2022 11:00-0400 Heart rate 98 /min Ma Sand Work Phone: [facility] 11-19-2022 11:00-0400 Respiratory rate 16 /min Ma Sand Work Phone: [facility] 11-19-2022 11:00-0400 SaO2% (BldA) [Mass fraction] 98 % Ma Sand Work Phone: [facility] 11-19-2022 11:00-0400 Systolic blood pressure 126 mm[Hg] Ma Sand Work Phone: [facility] 10-22-2022 11:51-0400 Body height 170.2 cm Ma Sand Work Phone: [facility] 10-22-2022 11:51-0400 Body weight 120.66 kg Ma Sand Work Phone: [facility] 10-22-2022 11:51-0400 Respiratory rate 16 /min Ma Sand Work Phone: [facility] 10-22-2022 10:50-0400 Body height 170.2 cm Vera Najera MD Work Phone: [facility] 10-22-2022 10:50-0400 Body temperature 97 [degF] Vera Najera MD Work Phone: [facility] 10-22-2022 10:50-0400 Body weight 120.75 kg Vera Najera MD Work Phone: [facility] 10-22-2022 10:50-0400 Diastolic blood pressure 55 mm[Hg] Vera Najera MD Work Phone: [facility] 10-22-2022 10:50-0400 Heart rate 78 /min Vera Najera MD Work Phone: [facility] 10-22-2022 10:50-0400 Respiratory rate 16 /min Vera Najera MD Work Phone: [facility] 10-22-2022 10:50-0400 SaO2% (BldA) [Mass fraction] 98 % Vera Najera MD Work Phone: [facility] 10-22-2022 10:50-0400 Systolic blood pressure 132 mm[Hg] Vera Najera MD Work Phone: [facility] 09-24-2022 10:22-0400 Body height 170.2 cm Ma Sand Work Phone: [facility] 09-24-2022 10:22-0400 Body temperature 97 [degF] Ma Sand Work Phone: [facility] 09-24-2022 10:22-0400 Body weight 120.2 kg Ma Sand Work Phone: [facility] 09-24-2022 10:22-0400 Diastolic blood pressure 81 mm[Hg] Ma Sand Work Phone: [facility] 09-24-2022 10:22-0400 Heart rate 77 /min Ma Sand Work Phone: [facility] 09-24-2022 10:22-0400 Respiratory rate 16 /min Ma Sand Work Phone: [facility] 09-24-2022 10:22-0400 SaO2% (BldA) [Mass fraction] 97 % Ma Sand Work Phone: [facility] 09-24-2022 10:22-0400 Systolic blood pressure 116 mm[Hg] Ma Sand Work Phone: [facility] 09-07-2022 14:03-0400 Body weight 120.2 kg Christie Phan MD Work Phone: [facility] 08-27-2022 09:45-0400 Body height 170.2 cm Rebekah Rojas APRN.CORK MIXER Work Phone: [facility] 08-27-2022 09:45-0400 Body temperature 97.7 [degF] Rebekah Rojas APRN.C[employer] M[employer]ER Work Phone: [facility] 08-27-2022 09:45-0400 Body weight 118.66 kg Rebekah Rojas SALES APPRENTICE.[employer] Work Phone: [facility] 08-27-2022 09:45-0400 Diastolic blood pressure 55 mm[Hg] Rebekah Rojas SALES APPRENTICE.[employer] M[employer]ER Work Phone: [facility] 08-27-2022 09:45-0400 Heart rate 63 /min Rebekah Rojas SALES APPRENTICE.[employer] M[employer] Work Phone: [facility] 08-27-2022 09:45-0400 Respiratory rate 16 /min Rebekah Rojas SALES APPRENTICE.[employer] M[employer] Work Phone: [facility] 08-27-2022 09:45-0400 SaO2% (BldA) [Mass fraction] 96 % Rebekah Rojas SALES APPRENTICE.[employer] M[employer] Work Phone: [facility] 08-27-2022 09:45-0400 Systolic blood pressure 117 mm[Hg] Rebekah Rojas SALES APPRENTICE.[employer] M[employer]ER Work Phone: [facility] 05-20-2022 13:28-0500 Body height 170.2 cm Vera Najera MD Work Phone: [facility] 05-20-2022 13:28-0500 Body temperature 97.7 [degF] Vera Najera MD Work Phone: [facility] 05-20-2022 13:28-0500 Diastolic blood pressure 70 mm[Hg] Vera Najera MD Work Phone: [facility] 05-20-2022 13:28-0500 Heart rate 93 /min Vera Najera MD Work Phone: [facility] 05-20-2022 13:28-0500 Respiratory rate 16 /min Vera Najera MD Work Phone: [facility] 05-20-2022 13:28-0500 SaO2% (BldA) [Mass fraction] 97 % Vera Najera MD Work Phone: [facility] 05-20-2022 13:28-0500 Systolic blood pressure 127 mm[Hg] Vera Najera MD Work Phone: [facility] 03-18-2022 10:49-0400 Body height 170.2 cm Vera Najera MD Work Phone: [facility] 03-18-2022 10:49-0400 Body temperature 97.81 [degF] Vera Najera MD Work Phone: [facility] 03-18-2022 10:49-0400 Body weight 113.4 kg Vera Najera MD Work Phone: [facility] 03-18-2022 10:49-0400 Diastolic blood pressure 49 mm[Hg] Vera Najera MD Work Phone: [facility] 03-18-2022 10:49-0400 Heart rate 86 /min Vera Najera MD Work Phone: [facility] 03-18-2022 10:49-0400 Respiratory rate 16 /min Vera Najera MD Work Phone: [facility] 03-18-2022 10:49-0400 SaO2% (BldA) [Mass fraction] 98 % Vera Najera MD Work Phone: [facility] 03-18-2022 10:49-0400 Systolic blood pressure 145 mm[Hg] Vera Najera MD Work Phone: [facility] 03-09-2022 11:41-0400 Body height 170.2 cm Christie Phan MD Work Phone: [facility] 03-09-2022 11:41-0400 Body weight 112.49 kg Christie Phan MD Work Phone: [facility] 03-09-2022 11:41-0400 Diastolic blood pressure 100 mm[Hg] Christie Phan MD Work Phone: [facility] 03-09-2022 11:41-0400 Systolic blood pressure 158 mm[Hg] Christie Phan MD Work Phone: [facility] 03-04-2022 10:39-0400 Body height 170.2 cm Vera Najera MD Work Phone: [facility] 03-04-2022 10:39-0400 Body temperature 97.5 [degF] Vera Najera MD Work Phone: [facility] 03-04-2022 10:39-0400 Body weight 112.76 kg Vera Najera MD Work Phone: [facility] 03-04-2022 10:39-0400 Diastolic blood pressure 48 mm[Hg] Vera Najera MD Work Phone: [facility] 03-04-2022 10:39-0400 Heart rate 79 /min Vera Najera MD Work Phone: [facility] 03-04-2022 10:39-0400 Respiratory rate 16 /min Vera Najera MD Work Phone: [facility] 03-04-2022 10:39-0400 SaO2% (BldA) [Mass fraction] 99 % Vera Najera MD Work Phone: [facility] 03-04-2022 10:39-0400 Systolic blood pressure 132 mm[Hg] Vera Najera MD Work Phone: [facility] 11-26-2021 16:00-0400 Body height 168.91 cm Mirela Kelsey Other [employer] Other 11-26-2021 16:00-0400 Body mass index (BMI) [Ratio] 37.68 kg/m2 Mirela Kelsey Other [employer] Other 11-26-2021 16:00-0400 Body temperature 98.4 [degF] Mirela Kelsey Other [employer] Other 11-26-2021 16:00-0400 Body weight 107.5 kg Mirela Buffy Other [employer] Other 11-26-2021 16:00-0400 Diastolic blood pressure 61 mm[Hg] Mirela Kelsey Other [employer] Other 11-26-2021 16:00-0400 Systolic blood pressure 115 mm[Hg] Mirela Kelsey Other [employer] Other 10-24-2021 08:18-0400 Body weight 108.86 kg Lynne Ni MD Work Phone: [facility] 10-24-2021 08:18-0400 Diastolic blood pressure 42 mm[Hg] Lynne Ni MD Work Phone: [facility] 10-24-2021 08:18-0400 Heart rate 72 /min Lynne Ni MD Work Phone: [facility] 10-24-2021 08:18-0400 Systolic blood pressure 106 mm[Hg] Lynne Ni MD Work Phone: [facility] 10-15-2021 15:45-0400 Body height 168.91 cm Mirela Kelsey Other [employer] Other 10-15-2021 15:45-0400 Body mass index (BMI) [Ratio] 38.31 kg/m2 Mirela Kelsey Other [employer] Other 10-15-2021 15:45-0400 Body temperature 98.1 [degF] Mirela Kelsey Other [employer] Other 10-15-2021 15:45-0400 Body weight 109.32 kg Mirela Kelsey Other [employer] Other 10-15-2021 15:45-0400 Diastolic blood pressure 60 mm[Hg] Mirela Kelsey Other [employer] Other 10-15-2021 15:45-0400 Systolic blood pressure 114 mm[Hg] Mirela Kelsey Other [employer] Other 09-11-2021 15:15-0400 Body height 168.91 cm Mirela Kelsey Other [employer] Other 09-11-2021 15:15-0400 Body mass index (BMI) [Ratio] 37.99 kg/m2 Mirela Kelsey Other [employer] Other 09-11-2021 15:15-0400 Body temperature 97.9 [degF] Mirela Kelsey Other [employer] Other 09-11-2021 15:15-0400 Body weight 108.41 kg Mirela Kelsey Other [employer] Other 09-11-2021 15:15-0400 Diastolic blood pressure 83 mm[Hg] Mirela Kelsey Other [employer] Other 09-11-2021 15:15-0400 Systolic blood pressure 144 mm[Hg] Mirela Kelsey Other [employer] Other 10-07-2020 12:45-0400 Diastolic blood pressure 78 mm[Hg] [facility] Phone: 10-07-2020 12:45-0400 Heart rate 68 /min Stv A [facility] Phone: 10-07-2020 12:45-0400 SaO2% (BldA) [Mass fraction] 99 % [facility] Phone: 10-07-2020 12:45-0400 Systolic blood pressure 112 mm[Hg] Stv A Amnis Work Phone: 10-07-2020 10:45-0400 Respiratory rate 22 /min [employer] Phone: 10-07-2020 09:01-0400 Body height 170.[address] [employer] Work Phone: 10-07-2020 09:01-0400 Body mass index (BMI) [Ratio] 36.65 kg/m2 [employer] Work Phone: 10-07-2020 09:01-0400 Body temperature 97.81 [degF] [employer] Work Phone: 10-07-2020 09:01-0400 Body weight 106.[address] [employer] Work Phone: Encounters Encounter Date Encounter Type Care Provider Facility Start: 03-03-2025 End: 03-03-2025 ambulatory Gay Enciso TOOL AND DIE SUPERVISOR-C Work Phone: [facility] Work Phone: Start: 03-03-2025 End: 03-03-2025 Departed Referred Jose Hays DO -[facility] Start: 03-02-2025 End: 03-02-2025 Admission to same day surgery center Terence Blum MD -[facility] [place] Start: 03-02-2025 End: 03-02-2025 ambulatory Gay Enciso TOOL AND DIE SUPERVISOR-C Work Phone: [facility] Work Phone: Start: 03-02-2025 End: 03-03-2025 External Result Encounter Terence Blum MD Work Phone: [facility] External Department Unsolicited Start: 03-02-2025 End: 03-03-2025 External Result Encounter Terence Pacheco MD Work Phone: [facility] External Department Unsolicited Start: 02-28-2025 End: 02-28-2025 ambulatory Gay Enciso TOOL AND DIE SUPERVISOR-C Work Phone: [facility] Work Phone: Start: 02-28-2025 End: 02-28-2025 Patient encounter procedure Bandar Portillo Lynne SALES APPRENTICE -[facility] Work Phone: Start: 02-28-2025 End: 02-28-2025 Office outpatient new 45 minutes Terence Blum MD Work Phone: [facility] Comment on above: Pilonidal abscess (Primary Dx); Pilonidal cyst Start: 02-28-2025 End: 02-28-2025 ambulatory TERENCE BLUM V Not Available Start: 02-26-2025 End: 02-26-2025 ambulatory Gay Enciso TOOL AND DIE SUPERVISOR-C Work Phone: [facility] Work Phone: Start: 02-26-2025 End: 02-26-2025 Departed Referred Mathew Ji MD -[facility] Start: 02-21-2025 End: 02-22-2025 ambulatory VERA ABHYANKAR Facility:[facility] Start: 02-14-2025 End: 02-14-2025 Office outpatient visit 15 minutes Bernabe English MD Work Phone: [facility] Comment on above: Pilonidal cyst (Primary Dx); Hidradenitis suppurativa Start: 02-14-2025 End: 02-14-2025 ambulatory BERNABE ENGLISH Not Available Start: 02-14-2025 End: 02-14-2025 Durga English MD Work Phone: [facility] Start: 02-14-2025 End: 02-14-2025 Bamboo flowsheet [facility]abe [facility] Start: 02-14-2025 End: 02-14-2025 ambulatory Gay Natalie Enciso TOOL AND DIE SUPERVISOR-C Work Phone: [facility] Work Phone: Start: 02-14-2025 End: 02-14-2025 Patient encounter procedure Margie Arnett TOOL AND DIE SUPERVISOR -[facility] Work Phone: Start: 02-08-2025 End: 02-09-2025 ambulatory LYNNE NI Facility:[facility] Start: 01-31-2025 End: 01-31-2025 Admission to same day surgery center Adolfo Kang MD -[facility] Work Phone: Start: 01-31-2025 End: 01-31-2025 ambulatory Gay Natalie Enciso TOOL AND DIE SUPERVISOR-C Work Phone: [facility] Work Phone: Start: 01-31-2025 Non-patient / Non-visit Adolfo Kang MD -[facility] Work Phone: Start: [...] 01-17-2025 End: 01-17-2025 ambulatory Gay Estrada Britt TOOL AND DIE SUPERVISOR-C Work Phone: [facility] Work Phone: Start: 01-17-2025 End: 01-17-2025 Patient encounter procedure Margie Arnett TOOL AND DIE SUPERVISOR [facility] Work Phone: Start: 01-11-2025 End: 01-12-2025 ambulatory Chair Antonia Reese Work Phone: Hematology/Oncology Comment on above: Other systemic lupus erythematosus with other organ involvement (HCC) (Primary Dx); Elevated LFTs; Anemia of chronic disease; Elevated sed rate; Elevated C-reactive protein (CRP); Vitamin D deficiency; Vitamin B12 deficiency; Screening-pulmonary TB Start: 12-27-2024 End: 12-27-2024 ambulatory VERA NAJERA Facility:[facility] Start: 12-14-2024 End: 12-14-2024 Chart abstracting [facility] Work Phone: Neurology Comment on above: CMN Start: 12-14-2024 End: 12-15-2024 ambulatory Chair Antonia Reese Work Phone: Hematology/Oncology Comment on above: Other systemic lupus erythematosus with other organ involvement (HCC) (Primary Dx) Start: 12-12-2024 End: 12-12-2024 Patient encounter procedure Bandar Batista APRN -[facility] Work Phone: Start: 11-30-2024 End: 11-30-2024 Follow-up encounter Vaibhav Carvalho APRN.CNP Work Phone: Hematology/Oncology Comment on above: Results Start: 11-30-2024 End: 11-30-2024 ambulatory Gay Enciso TOOL AND DIE SUPERVISOR-C Work Phone: [facility] Work Phone: Start: 11-30-2024 End: 11-30-2024 Patient encounter procedure Margie Arnett TOOL AND DIE SUPERVISOR -[facility] Work Phone: Start: 11-29-2024 [...] Start: 11-22-2024 Registered Recurring Janes Barfield MD -[facility] Start: 11-21-2024 End: 11-21-2024 ambulatory Gay Enciso TOOL AND DIE SUPERVISOR-C Work Phone: [facility] Work Phone: Start: 11-21-2024 End: 11-21-2024 Patient encounter procedure Adolfo Kang MD [facility] Work Phone: Start: 11-21-2024 Non-patient / Non-visit Adolfo Kang MD [facility] Work Phone: Start: 11-20-2024 End: 11-20-2024 Telephone encounter Vaibhav Carvalho APRN.CNP Work Phone: Hematology/Oncology Comment on above: Lab Orders Start: 11-16-2024 End: 11-17-2024 ambulatory Chair 16 [facility] Work Phone: Hematology/Oncology Comment on above: Other systemic lupus erythematosus with other organ involvement (HCC) (Primary Dx) Start: 11-15-2024 End: 11-20-2024 Telephone encounter Sandhya Whalen [facility] Work Phone: [facility] HB[facility] Start: 11-13-2024 End: 11-13-2024 Patient encounter procedure Adolfo Kang MD [facility] Work Phone: Start: 10-31-2024 End: [...] 10-17-2024 End: 10-17-2024 ambulatory MANUEL M Gal Facility:[facility] Start: 10-07-2024 End: 10-07-2024 Patient encounter procedure [...] Start: 10-07-2024 End: 10-07-2024 ambulatory LYNNE NI Facility:[facility] Start: 10-06-2024 End: 10-06-2024 Telephone encounter Lynne [...] 09-20-2024 End: 09-20-2024 Specialty Pharmacy Aidee Quintanilla [facility] Comment on above: SPP Inflammatory Conditions - Medication Refill (Benlysta) Start: 09-19-2024 End: 09-19-2024 ambulatory MANUEL Lynne QUINNGal Facility:[facility] Start: 09-19-2024 End: 09-19-2024 Patient encounter procedure Deborah Arroyo [facility] Work Phone: [facility] [place] Comment on above: Fibromyalgia (Primary Dx); Family history of disease of aorta; Family history of cancer Generalized articula r hypermobility (Primary Dx); Chronic pain syndrome; Discoid lupus erythematosus; Family history of pneumothorax in son; Family history of cancer; Family history of mild aortic dilation in daughter Start: 09-19-2024 End: 09-19-2024 ambulatory LYNNE NI Facility:[facility] Start: 09-18-2024 End: 09-18-2024 Telephone encounter Vera Najera MD Work Phone: [facility] Comment on above: Future Appointment [...] Start: 09-06-2024 End: 09-06-2024 ambulatory VAIBHAV CARVALHO Facility:[facility] Start: 09-04-2024 End: 09-04-2024 Office outpatient visit [...] Start: 08-29-2024 End: 08-29-2024 ambulatory MANUEL FERRIS Facility:[facility] Start: 08-28-2024 End: 08-28-2024 Telephone encounter Vaibhav Deven RODRIGUEZ Work Phone: Hematology/Oncology Comment on above: Lab Orders Start: 08-24-2024 End: 08-24-2024 Clinisync Result Encounter Gordo Barfield MD Work Phone: [facility] External Department Unsolicited Start: 08-24-2024 End: 08-24-2024 Clinisync Result Encounter Gordo Barfield MD Work Phone: [facility] External Department Unsolicited Start: 08-22-2024 End: 08-22-2024 ambulatory Gay LINC Work Phone: [facility] Work Phone: Start: 08-22-2024 End: 08-22-2024 Patient encounter procedure Gay LINC Work Phone: [facility] Work Phone: Start: 08-17-2024 End: 08-17-2024 Specialty Pharmacy Aidee Quintanilla [facility] Comment on above: SPP Inflammatory [...] End: 07-31-2024 ambulatory Gay LINC Work Phone: [facility] Work Phone: Start: 07-31-2024 End: 07-31-2024 Patient encounter procedure Gay Enciso TOOL AND DIE SUPERVISOR-C Work Phone: [facility] Work Phone: Start: 07-26-2024 End: 07-26-2024 Office outpatient visit 25 minutes Lois Holm MD Work Phone: [facility] Comment on above: Sinus tachycardia (Primary Dx); Shortness of breath; Paroxysmal supraventricular tachycardia (CMS-HCC); Essential hypertension; Obstructive sleep apnea syndrome; Morbid obesity (Multi); Current smoker Start: 07-26-2024 End: 07-26-2024 [facility] Start: 07-25-2024 End: 07-25-2024 Bamboo flowsheet Bernabe English MD Work Phone: [facility] Start: 07-25-2024 End: 07-25-2024 Bamboo flowsheet Bernabe English MD Work Phone: [facility] Start: 07-25-2024 End: 07-25-2024 Office outpatient visit 25 minutes Bernabe English MD Work Phone: [facility] Comment on above: Hidradenitis suppurativa (Primary Dx); Other seborrheic dermatitis; Lupus erythematosus tumidus (CMS/HCC); Rash and other nonspecific skin eruption; Capillary angioma; Neoplasm of uncertain behavior of skin Start: 07-25-2024 End: 07-25-2024 Specialty Pharmacy Aidee Quintanilla [facility] Comment on [...] / Non-visit Gay Enciso NP-C Work Phone: [facility] Work Phone: Start: 07-19-2024 End: 07-19-2024 Admission to same day surgery center Gay Enciso NP-C Work Phone: [facility] Work Phone: Start: 07-19-2024 End: 07-19-2024 ambulatory Gay Enciso TOOL AND DIE SUPERVISOR-C Work Phone: [facility] Work Phone: Start: 07-12-2024 End: 07-12-2024 ambulatory MARKY BARNES Facility:[facility] Start: 07-12-2024 End: 07-12-2024 Patient [...] lupus erythematosus Start: 07-10-2024 End: 07-10-2024 ambulatory [facility] Work Phone: Start: 07-10-2024 End: 07-10-[address] [facility] Work Phone: Start: 07-09-2024 End: 07-10-2024 Telephone encounter Lynne Ni MD Work Phone: Rheumatology Comment on above: Results Start: 06-30-2024 End: 06-30-2024 ambulatory LYNNE NI Facility:[facility] Start: 06-29-2024 End: 06-29-2024 Specialty Pharmacy Aidee Quintanilla [facility] Comment on above: SPP Inflammatory Conditions - Medication Refill (Benlysta) Start: 06-20-2024 End: 06-23-2024 ambulatory [facility] [place] Comment on above: Iron Infusions Start: 06-20-2024 End: 06-21-2024 [facility] Start: 06-20-2024 End: 06-23-2024 Patient encounter procedure Lynne Ni MD Work Phone: Rheumatology Comment on above: Flair Start: 06-16-2024 End: 06-20-2024 Telephone encounter Vaibhav Carvalho APRN.[employer] Work Phone: Hematology/Oncology Start: 06-15-2024 End: 06-15-2024 Telephone encounter Oly WARREN Work Phone: [facility] Start: 06-14-2024 End: 06-14-2024 Nursing evaluation of patient and report Breath Test [facility] Work Phone: [facility] Comment on above: Diarrhea, unspecified type (Primary Dx); Abdominal pressure Start: 06-13-2024 End: 06-13-2024 Office outpatient visit 25 minutes Vaibhav Carvalho APRN.[employer] Work Phone: Hematology/Oncology Comment on above: Megaloblastic [...] 06-12-2024 End: 06-13-2024 Telephone encounter Vaibhav Carvalho APRN.[employer] Work Phone: Hematology/Oncology Comment on above: Lab Orders Start: 06-06-2024 End: 06-06-2024 Bamboo flowsheet Oly WARREN Work Phone: [facility] Start: 06-06-2024 End: 06-10-2024 Bamboo flowsheet Oly WARREN Work Phone: [facility] Start: 06-06-2024 End: 06-10-2024 Clinisync Result Encounter Oly WARREN Work Phone: [facility] External Department Unsolicited Start: 06-06-2024 End: 06-06-2024 Specialty Pharmacy Aidee Quintanilla [facility] Comment on above: SPP Inflammatory Conditions - Medication Refill (Benlysta) Start: 06-06-2024 End: 06-06-2024 Patient encounter procedure Oly WARREN Work Phone: [facility] Healthcare Work Phone: Start: 06-06-2024 End: 06-06-2024 Periodic preventive med est patient 40-64yrs Oly WARREN Work Phone: [facility] Comment on above: Well woman exam with routine gynecologic al exam; Breast cancer screening by mammogram; Breast nodule Start: 05-19-2024 End: 05-19-2024 ambulatory Chair [address] [place] Work Phone: Hematology/Oncology Comment on above: Frequent infections (Primary Dx); Megaloblastic anemia due to vitamin B12 deficiency; Elevated sed rate; Hypogammaglobulinemia (HCC); Bilateral leg weakness; Discoid lupus erythematosus Start: 05-16-2024 End: 05-16-2024 Orders Only Vaibhav Carvalho APRN.CORK MIXER Work Phone: Hematology/Oncology Start: 05-15-2024 End: 05-15-2024 Social Work Deisy Jaime [facility] Hematology/Oncology Start: 05-12-2024 End: 05-12-2024 Specialty Pharmacy Aidee Quintanilla [facility] Comment on above: SPP Inflammatory Conditions - Medication Refill (Benlysta) Start: 04-28-2024 End: 04-28-2024 Orders Only Pepper Cotter LPN [facility] Comment on above: Peripheral vascular disease, unspecified ([facility]) (Primary Dx); Cold extremities; Systemic lupus erythematosus ([facility]) Start: 04-26-2024 End: 04-26-2024 ambulatory VERA NAEJRA Facility:[facility] Start: 04-26-2024 End: 04-26-2024 Nursing evaluation of patient and report Ma Nurse Dre Marshall Work Phone: Hematology/Oncology Comment on above: Elevated sed rate (Primary Dx); Megaloblastic anemia due to vitamin B12 deficiency Start: 04-14-2024 End: 10-05-2024 Telephone encounter [facility] Work Phone: [facility] Comment on above: Patient Update; Appointment Start: 04-11-2024 End: 04-11-2024 Specialty Pharmacy Aidee Quintanilla [facility] Comment on above: SPP Inflammatory Conditions - Medication Refill (Benlysta) Start: 04-10-2024 End: 04-10-2024 Bamboo flowsqian Barfield MD [facility] Start: 04-10-2024 End: 04-10-2024 Bamboo flowsheet Gordo Barfield MD Work Phone[facility] Start: 04-10-2024 End: 04-10-2024 Telephone encounter Vera Najera MD Work Phone: [facility] Comment on above: Appointment Start: 04-10-2024 End: 04-10-2024 Office outpatient visit 25 minutes Gordo Barfield MD Work Phone: [facility] Comment on above: LPRD (laryngopharyngeal reflux disease) (Primary Dx); Acute otalgia, right Start: 04-10-2024 End: 04-10-2024 ambulatory GORDO BARFIELD Not Available Start: 04-07-2024 End: 04-07-2024 Social Work Deisy Jaime [employer] Hematology/Oncology Start: 04-06-2024 End: 04-06-2024 Clinisync Result Encounter Oly WARREN Work Phone: [facility] External Department Unsolicited Start: 04-06-2024 End: 04-06-2024 Clinisync Result Encounter Oly WARREN Work Phone: [facility] External Department Unsolicited Start: 04-06-2024 End: 04-06-2024 Office outpatient new 30 minutes Hayden Arciniega MD [facility]: [facility] Comment on above: Systemic lupus [...] 03-30-2024 ambulatory Maico Douglas MD Work Phone: [facility] Start: 03-27-2024 End: [...] Start: 03-27-2024 End: 03-28-2024 ambulatory VERA NAJERA Facility:[facility] Start: 03-23-2024 End: 03-23-2024 ambulatory OLY PLASCENCIA Not Available Start: 03-23-2024 End: 03-23-2024 Office outpatient visit 15 minutes Oly WARREN Work Phone: [facility] Comment on above: Abnormal uterine bleeding (AUB); Menorrhagia with regular cycle Start: 03-23-2024 End: 03-23-2024 Bamboo flowsheet Oly WARREN Work Phone: [facility] Start: 03-23-2024 End: 03-23-2024 Bamboo flowsheet Oly WARREN Work Phone: [facility] Start: 03-23-2024 End: 03-23-2024 Nursing evaluation of patient and report Ma Nurse Dre Marshall Work Phone: Hematology/Oncology Comment on above: Elevated sed rate (Primary Dx); Megaloblastic anemia due to vitamin B12 deficiency Start: 03-23-2024 End: 03-23-2024 ambulatory MANUEL FERRIS Facility:[facility] Start: 03-20-2024 End: 03-30-2024 Telephone encounter Akiko Cooper MD Work Phone: [facility] Start: 03-18-2024 End: 03-18-2024 ambulatory LYNNE NI Facility:[facility] Start: 03-18-2024 End: 03-18-2024 Patient encounter procedure [...] both feet; Long-term use of high-risk medication; 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; Bilateral hand [...] Available Start: 03-16-2024 End: 03-16-2024 ambulatory TOOL AND DIE SUPERVISOR-C Gay Enciso Work Phone: [facility] Work Phone: Start: 03-16-2024 End: 03-16-2024 Patient encounter procedure TOOL AND DIE SUPERVISOR-C Gay Enciso Work Phone: [facility] Gastroenterology Work Phone: Start: 03-13-2024 End: 03-13-2024 Specialty Pharmacy Aidee Quintanilla [facility] Comment on above: SPP Inflammatory Conditions - Medication Refill (Benlysta - NCA 09/2024) Start: 03-08-2024 End: 03-08-2024 ambulatory EHAB [facility] Start: 03-07-2024 End: 03-08-2024 Chart abstracting [facility] Work Phone: Neurology Comment on above: cmn Start: 03-02-2024 End: 03-02-2024 Refarabella Cuellar TOOL AND DIE SUPERVISOR Work Phone: [facility] 210 Comment on above: Lumbosacral radiculopathy at L5; Degenerative disc disease, lumbar; Cervical radiculopathy at C5 Start: 02-28-2024 End: 02-28-2024 ambulatory TOOL AND DIE SUPERVISOR-C Gay Enciso Work Phone: [facility] Work Phone: Start: 02-28-2024 End: 02-28-2024 Patient encounter procedure TOOL AND DIE SUPERVISOR-C Gay Enciso Work Phone: [facility] Work Phone: Start: 02-22-2024 End: 02-22-2024 Telephone encounter Oly Elam Ananya Work Phone: [facility] Comment on above: Seo Expert - Other (Eds scheduling ) Start: 02-21-2024 End: 02-21-2024 Nursing evaluation of patient and report Ma Nurse Dre Marshall Work Phone: Hematology/Oncology Comment on above: Elevated sed rate (Primary Dx); Megaloblastic anemia due to vitamin B12 deficiency Start: 02-18-2024 End: 02-18-2024 Telephone encounter Lynne Ni MD Work Phone: Rheumatology Start: 02-16-2024 Non-patient / Non-visit TOOL AND DIE SUPERVISOR-C Gay Enciso Work Phone: [facility] Work Phone: Start: 02-16-2024 End: 02-16-2024 Admission to same day surgery center TOOL AND DIE SUPERVISOR-C Gay Enciso Work Phone: [facility] Work Phone: Start: 02-16-2024 End: 02-16-2024 ambulatory TOOL AND DIE SUPERVISOR-C Gay Enciso Work Phone: [facility] Work Phone: Start: 02-15-2024 End: 02-15-2024 Telephone encounter Lexus Heck APRN.CORK MIXER Work Phone: Neurology Comment on above: Orders (PAP RX.) Start: 02-14-2024 End: 02-14-2024 Follow-up encounter Aidee Quintanilla [facility] Comment on above: SPP Inflammatory Conditions - Follow-up (Benlysta); Insurance Authorization ([place] Renew[place] Submitted) Start: 02-14-2024 End: 02-14-2024 ambulatory Lexus Heck APRN.CORK MIXER Work Phone: Neurology Comment on above: JOSE RAFAEL (obstructive sleep apnea) (Primary D x); Somnolence, daytime SPP Inflammatory Con ditions - Medication Refill (Benlysta - NCA 09/2024) Start: 02-14-2024 End: 02-14-2024 Telemedicine consultation with patient Lexus Heck APRN.CORK MIXER Work Phone: Neurology Start: 02-09-2024 End: 02-09-2024 Bamboo flowsheet Zita Cuellar TOOL AND DIE SUPERVISOR Work Phone: [facility] Start: 02-09-2024 End: 02-09-2024 Bamboo flowsheet Zita Cuellar TOOL AND DIE SUPERVISOR Work Phone: [facility] Start: 02-09-2024 End: 02-09-2024 Phys/qhp telephone evaluation 21-30 min Zita Cuellar TOOL AND DIE SUPERVISOR Work Phone: [facility] 210 Comment on above: Lumbosacral radiculopathy at L5 (Primary Dx); Degenerative disc disease, lumbar; Cervical radiculopathy at C5 Start: 02-07-2024 End: 02-07-2024 Refill Zita Cuellar TOOL AND DIE SUPERVISOR Work Phone: [facility] 210 Comment on above: Autoimmune disease (CMS/HCC); Fibromyalgia; Numbness Start: 01-28-2024 End: 01-31-2024 ambulatory Alhaji Head DO Work Phone: [facility] Work Phone: Comment on above: Blood work Start: 01-28-2024 End: 01-28-[address] [facility] Work Phone: [...] 01-20-2024 Refill Kade Richardson MD Work Phone: [facility] 210 Comment on above: Degenerative disc disease, lumbar (Prima ry Dx); Lumbosacral radiculopathy at L5 Start: 01-18-2024 End: 01-19-2024 Specialty Pharmacy Aidee Quintanilla [facility] Comment on above: SPP Inflammatory [...] apnea syndrome Start: 12-24-2023 End: 12-24-2023 ambulatory [facility] Ambulatory Start: 12-16-2023 End: 12-16-2023 ambulatory [facility] Work Phone: Start: 12-16-2023 End: 12-16-[address] [facility] Work Phone: Start: 12-13-2023 Specialty Pharmacy Aidee Quintanilla [facility] Comment on above: SPP Inflammatory [...] acid Start: 11-15-2023 Specialty Pharmacy Aidee Quintanilla [facility] Comment on above: SPP Inflammatory Conditions - Medication Refill (Benlysta - NCA 09/2024) Start: 11-11-2023 Refill Lynne Ni MD Work Phone: Rheumatology Comment on above: Refill Request Start: 11-04-2023 End: 11-04-2023 [facility] Work Phone: Start: 11-04-2023 End: 11-04-2023 [facility] Infectious Disease Work Phone: Start: 10-27-2023 End: [...] on above: Cdiff Start: 10-20-2023 End: 10-20-2023 [facility] Work Phone: Start: 10-20-2023 End: 10-20-2023 [facility] Infectious Disease Work Phone: Start: 10-12-2023 Specialty Pharmacy Aidee Quintanilla [facility] Comment on above: SPP Inflammatory [...] Start: 09-22-2023 End: 09-22-[address] [facility] G[facility] Work Phone: Start: 09-13-2023 Specialty Pharmacy Aidee Quintanilla [facility] Comment on above: SPP Inflammatory [...] with patient Vera Najera MD Work Phone: [place] Start: 09-04-2023 Telephone encounter Lynne Ni MD Work Phone: Rheumatology Comment on above: Results Start: 08-31-2023 End: 08-31-2023 Nursing evaluation of patient and report Cele Marshall Work Phone: Hematology/Oncology Comment on above: 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); Elevated sed rate Start: 08-12-2023 Specialty Pharmacy Aidee Quintanilla [facility] Comment on above: SPP Inflammatory Conditions - Medication Refill (Benlysta ) Start: 08-05-2023 End: 08-05-2023 Nursing evaluation of patient and report Cele Marshall Work Phone: Hematology/Oncology Comment on above: 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); Elevated sed rate Start: 07-28-2023 [facility] Gastroenterology Work Phone: Start: 07-13-2023 [facility] Start: 07-13-2023 End: 07-13-2023 Nursing evaluation of patient and report Ma Nurse Dre Marshall Work Phone: Hematology/Oncology Comment on above: 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); Elevated sed rate SPP Inflammatory Con ditions - Medication Refill (Benlysta ) Start: 07-13-2023 End: 07-13-2023 Office outpatient new 45 minutes Lois Holm MD Work Phone: [facility] Comment on above: Shortness of breath (Primary Dx); Paroxysmal supraventricular tachycardia; PAC (premature atrial contraction); Current smoker; Systemic lupus erythematosus, unspecified SLE type, unspecified organ involvement status (CMS/HCC); Palpitations; Obstructive sleep apnea syndrome; Morbid obesity (CMS/HCC); Bilateral lower extremity edema Start: 07-06-2023 End: 07-06-2023 Office outpatient visit 25 minutes Kade Richardson MD Work Phone: [facility] 210 Comment on above: Autoimmune disease (CMS/HCC) (Primary Dx ); Autonomic dysfunction; Lumbosacral radiculopathy; Bilateral leg weakness Start: 07-05-2023 Chart abstracting Kade Richardson MD Work Phone: [facility] 210 Start: 06-09-2023 End: 06-09-2023 Office outpatient new 60 minutes Michelle TABOR Work Phone: [facility] Comment on above: Irregular heart rate [...] evaluation of patient and report Nurse Mora [facility] Nickie Work Phone: Rheumatology Comment on [...] deficiency; Elevated sed rate; Bilateral wrist pain; 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; Steroid-induced osteoporosis; [...] with patient Lynne Ni MD Work Phone: [facility] Start: 01-28-2023 Refill Christie Phan [...] patient Misty Nelson MD Work Phone: [facility] Start: 12-24-2022 Refill Christie Phan MD Work Phone: [facility] Medicine Comment on above: Refill Request Start: 12-18-2022 Telephone encounter Lidia Argueta RN Work Phone: Hematology/Oncology Comment on above: Care Coordination (appointment) Start: 12-17-2022 End: 12-18-2022 ambulatory Rebekah Rojas APRN.CORK MIXER Work Phone: Hematology/Oncology Comment on above: Megaloblastic anemia due to vitamin B12 deficiency (Primary Dx); Chronic fatigue and malaise Start: 12-17-2022 End: 12-18-2022 Telemedicine consultation with patient Rebekah Rojas MAURILIO.CORK MIXER Work Phone: [place] Start: 12-16-2022 Telephone encounter Pamella Bettencourt RN Work Phone: Hematology/Oncology Comment on above: Appointment Start: 12-08-2022 ambulatory Vera Najera MD Work Phone: Hematology/Oncology Comment on above: Test results Start: 12-08-2022 Telephone encounter Enma Hamm equal opportunity officer/Oncology Comment on above: Results Start: 11-22-2022 ambulatory [...] Start: 09-08-2022 Telephone encounter Angelia Washington [facility] Delivery - Compliance Comment on above: [...] Start: 08-27-2022 End: 08-27-2022 ambulatory Rebekah Bob SALES APPRENTICE.CORK MIXER Work Phone: Hematology/Oncology Comment on above: Megaloblastic anemia due to vitamin B12 deficiency (Primary Dx); Elevated sed rate; High total serum IgM; Chronic fatigue and malaise; JOSE RAFAEL (obstructive sleep apnea) Start: 08-27-2022 End: 08-27-2022 Patient encounter procedure Rebekah Bob THORPE.CORK MIXER Work Phone: [place] Start: 08-19-2022 Telephone encounter Lynne Ni MD Work Phone: Rheumatology Comment on above: Results Start: 08-15-2022 ambulatory Lynne Ni MD Work Phone: Rheumatology Comment on above: update Start: 08-10-2022 Refill Christie Phan MD Work Phone: [facility] Comment on above: Refill Request Start: 07-27-2022 End: 07-27-2022 ambulatory Lexus Heck MAURILIO.CORK MIXER Work Phone: Neurology Comment on above: JOSE RAFAEL (obstructive sleep apnea) (Primary D x) Start: 07-27-2022 End: 07-27-2022 Telemedicine consultation with patient Lexus Heck APRN.CORK MIXER Work Phone: [facility] Start: 07-24-2022 ambulatory Lynne Ni MD Work Phone: Rheumatology Comment on above: Blood work Start: 07-24-2022 Telephone encounter Vera Najera MD Work Phone: Hematology/Oncology Comment on above: Orders (Lab Orders Before Appoint ment) Start: 07-21-2022 ambulatory Lawanda Miranda MD Work Phone: [facility] Start: 07-21-2022 Patient encounter procedure [...] Coordinator [facility] Comment on above: Appointment; Seo Expert - Other Start: 03-31-2022 End: 04-01-2022 ambulatory [...] from caregiver Christie Phan MD Work Phone: [facility] Start: 03-18-2022 End: 03-18-2022 Patient encounter procedure Vera Najera MD Work Phone: [place] Start: 03-12-2022 End: 03-13-[address] MANUEL FERRIS . Facility: Start: 03-10-2022 End: 03-10-2022 ambulatory Alhaji Head DO Work Phone: Infectious Disease Comment on above: results Raised level of immu noglobulins (Primary Dx); Wound healing, delayed; Current smoker Start: 03-10-2022 E-mail encounter from caregiver Alhaji Head DO Work Phone: [facility] Start: 03-10-2022 End: 03-10-2022 Telemedicine consultation with patient Misty Nelson MD Work Phone: [place] Start: 03-09-2022 End: 03-10-2022 ambulatory GAY ENCISO [...] encounter procedure Vera Najera MD Work Phone: [place] Start: 03-02-2022 Chart abstracting Vera Najera MD [...] with patient Alhaji Head DO Work Phone: [facility] Start: 02-14-2022 End: 02-15-[address] MANUEL FERRIS . Facility:[facility] Start: 11-26-2021 End: 11-26-2021 ambulatory Mirela Kelsey Other [facility] Other Start: 11-26-2021 Office outpatient visit 25 [...] 10-15-2021 End: 10-15-2021 ambulatory Mirela Kelsey Other [facility] Other Start: 10-15-2021 Office outpatient visit 25 minutes Mirela LOPEZ Infectious Disease Start: 10-03-2021 End: [address] MIRELA KELSEY Facility: Start: 09-18-2021 End: 09-18-2021 ambulatory Mirela Kelsey Other [facility] Other Start: 09-18-2021 Telephone encounter Mirela LOPEZ Infectious Disease Start: 09-11-2021 End: 09-11-2021 ambulatory Mirela Kelsey Other [facility] Other Start: 09-11-2021 Office outpatient new 45 minutes Mirela Kelsey [facility] Infectious Disease Start: 10-07-2020 End: 10-08-2020 ambulatory [facility]AS [facility] Start: 10-07-2020 End: 10-07-2020 Subsequent hospital visit by physician Stv Business Relations Manager Rm A STVZ Business Relations Manager Comment on above: Arrived Start: 09-14-2018 End: 09-17-2018 Patient encounter procedure VICTOR MANUEL GUZMAN [facility] Procedures Date Procedure Procedure Detail Performing Clinician Start: 03-02-2025 AEROBIC CULTURE Terence Blum MD Work Phone: Start: 03-02-2025 ANAEROBIC CULTURE Adolfo Blum MD Work Phone: Start: 03-02-2025 Removal of pilonidal cyst Gay Enciso TOOL AND DIE SUPERVISOR-C Work Phone: Start: 03-02-2025 Aerobic microbial culture Gay Enciso TOOL AND DIE SUPERVISOR-C Work Phone: Start: 03-02-2025 Gram stain microscopy P kendrick Enciso TOOL AND DIE SUPERVISOR-C Work Phone: Start: 02-26-2025 Urine culture Gay peralta TOOL AND DIE SUPERVISOR-C Work Phone: Start: 01-31-2025 DH Nerve Radio Frequ ency (Bilateral) Gay Enciso TOOL AND DIE SUPERVISOR-C Work Phone: Start: 01-11-2025 Blood count complete automated Lynne Ni MD Work Phone: Start: 10-02-2024 Blood count complete automated Lynne Ni MD Work Phone: Start: 10-02-2024 C-reactive protein Christie Ni MD Work Phone: Start: 09-06-2024 Assay of gammaglobul in iga igd igg igm each Vaibhav Carvalho SALES APPRENTICE.CORK MIXER Work Phone: Start: 08-24-2024 Us soft tissue head & neck real time imge docm Gordo Barfield MD Work Phone: Start: 07-19-2024 Injection of local anesthetic into sacroiliac joint Gay Enciso TOOL AND DIE SUPERVISOR-C Work Phone: Start: 06-13-2024 Blood count complete auto&auto difrntl wbc Vaibhav Carvalho APRN.CORK MIXER Work Phone: Start: 06-06-2024 IGP,APTIMA HPV,AGE GDLN [...] of local anesthetic into sacroiliac joint TOOL AND DIE SUPERVISOR-C Gay Enciso Work Phone: Start: 07-13-2023 Ecg routine ecg w/le ast 12 lds w/i&r Lois Holm MD Work Phone: Start: 06-09-2023 Ecg routine ecg w/le ast 12 lds w/i&r Michelle Jasmine SALES APPRENTICE-CORK MIXER Work Phone: Start: 09-10-2022 Microscopic observat ion [...] 09-11-2027 Screening for malignant neoplasm of cervix [facility] Start: 06-06-2027 Screening for malignant neoplasm of cervix [facility] Start: 09-10-2025 Screening for malignant neoplasm of cervix Pap Smear [facility] Start: 07-26-2025 End: 07-26-2025 Patient encounter procedure 07/26/2025 11:00 AM EST Office Visit [facility] [address] [id number] Lois Holm MD [address] [facility] [address] [place] [address] [facility] Start: 07-25-2025 End: 07-25-2025 Patient encounter procedure [facility] Start: 04-20-2025 End: 01-18-2026 25-hydroxyvitamin D3 [Mass/volume] in Serum or Plasma VITAMIN D 25 HYDROXY Lab Routine Vitamin D deficiency Expected: 04/20/2025 (Approximate), Expires: 01/18/2026 [facility] Comment on above: Expected: 04/20/2025 (Approximate), Expi res: 01/18/2026 Start: 04-20-2025 End: 01-18-2026 C reactive protein [Mass/volume] in Serum or Plasma C-REACTIVE PROTEIN Lab Routine Elevated C-reactive protein (CRP) Elevated sed rate Expected: 04/20/2025 (Approximate), Expires: 01/18/2026 [facility] Comment on above: Expected: 04/20/2025 (Approximate), Expi res: 01/18/2026 Start: 04-20-2025 End: 01-18-2026 CBC panel - Blood by Automated count COMPLETE BLOOD COUNT Lab Routine Anemia of chronic disease Expected: 04/20/2025 (Approximate), Expires: 01/18/2026 [facility] Comment on above: Expected: 04/20/2025 (Approximate), Expi res: 01/18/2026 Start: 04-20-2025 End: 01-18-2026 Comprehensive metabolic 2000 panel - Serum or Plasma COMPREHENSIVE METABOLIC PANEL Lab Routine Elevated LFTs Expected: 04/20/2025 (Approximate), Expires: 01/18/2026 [facility] Work Phone: Comment on above: Expected: 04/20/2025 (Approximate), Expi res: 01/18/2026 Start: 04-20-2025 End: 01-18-2026 Erythrocyte sedimentation rate SEDIMENTATION RATE, WESTERGREN Lab Routine Elevated C-reactive protein (CRP) Elevated sed rate Expected: 04/20/2025 (Approximate), Expires: 01/18/2026 [facility] Comment on above: Expected: 04/20/2025 (Approximate), Expi res: 01/18/2026 Start: 04-07-2025 Screening for malignant neoplasm of breast Mammogram [facility] Start: 04-06-2025 Adult BMI Screening Adult BMI Screening [facility] Start: 04-06-2025 Screening for malignant neoplasm of breast Mammogram [facility] Start: 04-06-2025 Tobacco Screening Tobacco Screening [facility] Start: 03-23-2025 End: 03-23-2025 Patient encounter procedure 03/23/2025 11:30 AM EDT Office Visit [facility] [address] [place] [phone] Terence Blum MD [address] [place] [address] [facility] Start: 03-19-2025 End: 03-19-2025 Patient encounter procedure [facility] Start: 03-17-2025 Diabetes mellitus screening Diabetes Screening [facility] Start: 03-03-2025 Urine culture [facility] Start: 03-03-2025 Bacteria identified in Urine by Culture Urine Culture [facility] Start: 03-02-2025 End: 03-02-2025 [facility] Start: 03-02-2025 Aerobic Culture Aerobic [facility] Start: 03-02-2025 Anaerobic Culture Anaerobic Culture [facility] Start: 03-02-2025 Anaerobic microbial culture Anaerobic Culture [facility] Start: 03-02-2025 Microscopic observation [Identifier] in Unspecified specimen by Gram stain [facility] Start: 02-26-2025 Urine culture [facility] Start: 02-26-2025 Bacteria identified in Urine by Culture Urine Culture [facility] Start: 02-21-2025 End: 02-21-2025 ambulatory Hematology/Oncology Comment on above: 3 mo F/U-IVIG Start: 02-21-2025 End: 02-21-2025 Patient encounter procedure 02/21/2025 8:45 AM EDT Office Visit [facility] [address] [place] [address] [place] [address] 3 mo F/U-IVIG [facility] Comment on above: 3 mo F/U-IVIG Start: 02-14-2025 End: 02-14-2025 Patient encounter procedure 02/14/2025 3:20 PM EDT Office Visit [facility] [address] [place] [id number] Bernabe English MD [address] [place] [address] Arrived [facility] Comment on above: Arrived Start: 02-08-2025 End: 02-08-2025 ambulatory 02/08/2025 2:00 PM EDT Infusion Center Hematology/Oncology [address] [place] [address] [place] [address] [facility] - Hematology/Oncology Comment on above: B[facility] - Start: 01-31-2025 [facility] Start: 01-24-2025 End: 01-24-2025 ambulatory Hematology/Oncology Comment on above: IVIG q4 weeks IVIG(5hours) q4 week s Start: 01-22-2025 Influenza vaccination [facility] Start: 01-06-2025 End: 10-06-2025 25-hydroxyvitamin D3 [Mass/volume] in Serum or Plasma VITAMIN D 25 HYDROXY Lab Routine Vitamin D deficiency Expected: 01/06/2025 (Approximate), Expires: 10/06/2025 [facility] Comment on above: Expected: 01/06/2025 (Approximate), Expi res: 10/06/2025 Start: 01-06-2025 End: 10-06-2025 BLOOD TB SCREEN BLOOD TB SCREEN Lab Routine Screening-pulmonary TB Expected: 01/06/2025 (Approximate), Expires: 10/06/2025 [facility] Comment on above: Expected: 01/06/2025 (Approximate), Expi res: 10/06/2025 Start: 01-06-2025 End: 10-06-2025 C reactive protein [Mass/volume] in Serum or Plasma C-REACTIVE PROTEIN Lab Routine Elevated sed rate Elevated C-reactive protein (CRP) Expected: 01/06/2025 (Approximate), Expires: 10/06/2025 [facility] Comment on above: Expected: 01/06/2025 (Approximate), Expi res: 10/06/2025 Start: 01-06-2025 End: 10-06-2025 CBC panel - Blood by Automated count COMPLETE BLOOD COUNT Lab Routine Anemia of chronic disease Expected: 01/06/2025 (Approximate), Expires: 10/06/2025 [facility] Comment on above: Expected: 01/06/2025 (Approximate), Expi res: 10/06/2025 Start: 01-06-2025 End: 10-06-2025 Chronic hepatitis differentiation between hepatitis B and C virus panel - Serum or Plasma HEP REMOTE PANEL BL Lab Routine Elevated LFTs Expected: 01/06/2025 (Approximate), Expires: 10/06/2025 [facility] Comment on above: Expected: 01/06/2025 (Approximate), Expi res: 10/06/2025 Start: 01-06-2025 End: 10-06-2025 Cobalamin (Vitamin B12) [Mass/volume] in Serum or Plasma VITAMIN B12 Lab Routine Vitamin B12 deficiency Expected: 01/06/2025 (Approximate), Expires: 10/06/2025 [facility] Comment on above: Expected: 01/06/2025 (Approximate), Expi res: 10/06/2025 Start: 01-06-2025 End: 10-06-2025 Comprehensive metabolic 2000 panel - Serum or Plasma COMPREHENSIVE METABOLIC PANEL Lab Routine Elevated LFTs Expected: 01/06/2025 (Approximate), Expires: 10/06/2025 [facility] Work Phone: Comment on above: Expected: 01/06/2025 (Approximate), Expi res: 10/06/2025 Start: 01-06-2025 End: 10-06-2025 Erythrocyte sedimentation rate SEDIMENTATION RATE, WESTERGREN Lab Routine Elevated sed rate Elevated C-reactive protein (CRP) Expected: 01/06/2025 (Approximate), Expires: 10/06/2025 [facility] Comment on above: Expected: 01/06/2025 (Approximate), Expi res: 10/06/2025 Start: 12-27-2024 End: 12-27-2024 ambulatory 12/27/2024 9:00 AM EDT Infusion Center Hematology/Oncology [address] [place] [address] IVIG q4 weeks Hematology/Oncology Comment on above: IVIG q4 weeks Start: 12-14-2024 End: 12-14-2024 ambulatory 12/14/2024 2:00 PM EDT Infusion Center Hematology/Oncology [address] [facility] [place] [address] [facility] - Hematology/Oncology Comment on above: [facility] - Start: 11-29-2024 End: 11-29-2024 ambulatory Hematology/Oncology Comment on above: 3 mo F/U-IVIG(slow infusion per pt reque st/B12 +/-IV iron lab Start: 11-29-2024 End: 11-29-2024 Patient encounter procedure 11/29/2024 8:45 AM EDT Office Visit [facility] [address] [place] [address] [place] [address] 3 mo F/U-IVIG(slow infusion per pt request/B12 +/-IV iron lab [facility] Comment on above: 3 mo F/U-IVIG(slow infusion per pt reque st/B12 +/-IV iron lab Start: 11-20-2024 End: 02-19-2025 CBC W Auto Differential panel - Blood COMPLETE BLOOD COUNT AND DIFFERENTIAL Lab Routine Hypogammaglobulinemia (HCC) Expected: 11/20/2024, Expires: 02/19/2025 [facility] Work Phone: Comment on above: Expected: 11/20/2024, Expires: Start: 11-20-2024 End: 02-19-2025 Cobalamin (Vitamin B12) [Mass/volume] in Serum or Plasma VITAMIN B12 Lab Routine Hypogammaglobulinemia (HCC) Expected: 11/20/2024, Expires: 02/19/2025 [facility] Comment on above: Expected: 11/20/2024, Expires: Start: 11-20-2024 End: 02-19-2025 Comprehensive metabolic 2000 panel - Serum or Plasma COMPREHENSIVE METABOLIC PANEL Lab Routine Hypogammaglobulinemia (HCC) Expected: 11/20/2024, Expires: 02/19/2025 [facility] Comment on above: Expected: 11/20/2024, Expires: Start: 11-20-2024 End: 02-19-2025 Ferritin [Mass/volume] in Serum or Plasma FERRITIN Lab Routine Hypogammaglobulinemia (HCC) Expected: 11/20/2024, Expires: 02/19/2025 [facility] Comment on above: Expected: 11/20/2024, Expires: Start: 11-20-2024 End: 02-19-2025 Folate [Mass/volume] in Serum or Plasma FOLATE, SERUM Lab Routine Hypogammaglobulinemia (HCC) Expected: 11/20/2024, Expires: 02/19/2025 [facility] Comment on above: Expected: 11/20/2024, Expires: Start: 11-20-2024 End: 02-19-2025 IMMUNOGLOBULINS,IGG,IGA,IG M IMMUNOGLOBULINS,IGG,IGA,IG M Lab Routine Hypogammaglobulinemia (HCC) Expected: 11/20/2024, Expires: 02/19/2025 [facility] Comment on above: Expected: 11/20/2024, Expires: Start: 11-20-2024 Influenza vaccination Influenza Vaccine (#1) [facility] Comment on above: Postponed from 01/23/2024 (Patient Refus ed) Start: 11-20-2024 End: 02-19-2025 Iron and Iron binding capacity panel - Serum or Plasma IRON AND TIBC Lab Routine Hypogammaglobulinemia (HCC) Expected: 11/20/2024, Expires: 02/19/2025 [facility] Comment on above: Expected: 11/20/2024, Expires: Start: 11-16-2024 End: 11-16-2024 ambulatory 11/16/2024 2:00 PM EDT Infusion Center Hematology/Oncology [address] [place] [address] [place] [address] [facility] - Hematology/Oncology Comment on above: [facility] - Start: 11-01-2024 End: 11-01-2024 ambulatory 11/01/2024 9:00 AM EDT Infusion Center Hematology/Oncology [address] [facility] [place] [address] IVIG q 4 weeks with B 12 inj and lab Hematology/Oncology Comment on above: IVIG q 4 weeks with B 12 inj and lab Start: 10-31-2024 End: 10-31-2024 ambulatory 10/31/2024 9:00 AM EDT Infusion Center Hematology/Oncology [address] [facility] [place] [address] IVIG q 4 weeks with B 12 inj and lab Hematology/Oncology Comment on above: IVIG q 4 weeks with B 12 inj and lab Start: 10-19-2024 End: 10-19-2024 ambulatory 10/19/2024 2:00 PM EDT Infusion Center Hematology/Oncology [address] [place] [address] [place] [address] [facility] - IVIG AND [facility]STA AT LEAST 1 DAY APART FOR FUTURE APPTS Hematology/Oncology Comment on above: BENLYSTA - IVIG AND [facility] AT LEAST 1 DAY APART FOR FUTURE APPTS Start: 10-18-2024 End: 10-18-2024 Specialty Pharmacy 10/18/2024 10:00 AM EDT Specialty Pharmacy [facility] [facility] [id number] [place] [address] Pharmacist, [facility] [address] [place] [address] [place], [place] [phone] REFILL- Benlysta- PAx 02/11/25- - mult call attempts [facility] Comment on above: REFILL- Benlysta- PAx 02/11/25- - mult call attempts Start: 10-07-2024 End: 10-07-2024 Follow-up encounter 10/07/2024 8:00 AM EDT [facility] [address] [place] [address] Lynne Ni MD [address] [place] [address] follow up visit Rheumatology Comment on above: follow up visit Start: 10-06-2024 End: 07-09-2025 25-hydroxyvitamin D3 [Mass/volume] in Serum or Plasma VITAMIN D 25 HYDROXY Lab Routine Vitamin D deficiency Expected: 10/06/2024 (Approximate), Expires: 07/09/2025 [facility] Comment on above: Expected: 10/06/2024 (Approximate), Expi res: 07/09/2025 Start: 10-06-2024 End: 07-09-2025 C reactive protein [Mass/volume] in Serum or Plasma C-REACTIVE PROTEIN Lab Routine Elevated sed rate Elevated C-reactive protein (CRP) Expected: 10/06/2024 (Approximate), Expires: 07/09/2025 [facility] Comment on above: Expected: 10/06/2024 (Approximate), Expi res: 07/09/2025 Start: 10-06-2024 End: 07-09-2025 CBC panel - Blood by Automated count COMPLETE BLOOD COUNT Lab Routine Anemia of chronic disease Expected: 10/06/2024 (Approximate), Expires: 07/09/2025 [facility] Comment on above: Expected: 10/06/2024 (Approximate), Expi res: 07/09/2025 Start: 10-06-2024 End: 07-09-2025 Comprehensive metabolic 2000 panel - Serum or Plasma COMPREHENSIVE METABOLIC PANEL Lab Routine Elevated LFTs Expected: 10/06/2024 (Approximate), Expires: 07/09/2025 [facility] Work Phone: Comment on above: Expected: 10/06/2024 (Approximate), Expi res: 07/09/2025 Start: 10-06-2024 End: 07-09-2025 Erythrocyte sedimentation rate SEDIMENTATION RATE, WESTERGREN Lab Routine Elevated sed rate Elevated C-reactive protein (CRP) Expected: 10/06/2024 (Approximate), Expires: 07/09/2025 [facility] Comment on above: Expected: 10/06/2024 (Approximate), [...] 10/02/2024 9:00 AM EDT Infusion Center Hematology/Oncology [address] [place] [address] [place] [address] IVIG q 4 weeks with B 12 inj and lab Hematology/Oncology Comment on above: IVIG q 4 weeks with B 12 inj and lab Start: 09-28-2024 End: 09-28-2024 Specialty Pharmacy 09/28/2024 10:00 AM EDT Specialty Pharmacy [facility] [address] [place] [id number] Pharmacist, [facility] [address] [place] [address] [place] [address] REFILL- Benlysta- PAx 02/11/25- - LVM 09/20, 09/25 [facility] Comment on above: REFILL- Benlysta- PAx 02/11/25- urs - LVM 09/20, 09/25 Start: 09-25-2024 End: 09-25-2024 Specialty Pharmacy 09/25/2024 10:15 AM EDT Specialty Pharmacy [facility] [address] [place] [phone] Pharmacist, [facility] [address] [place] [address] [place] [address] REFILL- Benlysta- PAx 02/11/25- - LVM 09/20 [facility] Comment on above: REFILL- Benlysta- PAx 02/11/25- urs - LVM 09/20 Start: 09-20-2024 End: 09-20-2024 Specialty Pharmacy 09/20/2024 10:15 AM EDT Specialty Pharmacy [facility] [address] [place] [phone] Pharmacist, [facility] [address] [place] [address] [place] [address] REFILL- Benlysta- PAx 02/11/25- - pend new [...] 9:30 AM EDT Infusion Center Hematology/Oncology [address] [facility] [place] [address] 3 mo F/U-IVIG(slow infusion per pt request/B12 +/-IV iron Hematology/Oncology Comment on above: 3 mo F/U-IVIG(slow infusion per pt reque st/B12 +/-IV iron Start: 09-06-2024 End: 09-06-2024 Follow-up encounter Hematology/Oncology Comment on above: 3 month follow up IVIG for hypogammaglob ulinemia + b12 Start: 09-06-2024 End: 09-06-2024 Patient encounter procedure 09/06/2024 8:45 AM EDT Office Visit [facility] [address] [place] [address] [place] [address] 3 month follow up IVIG for hypogammaglobulinemia + b12 [facility] Comment on above: 3 month follow up IVIG for hypogammaglob ulinemia + b12 Start: 09-05-2024 End: 09-05-2024 Follow-up encounter Hematology/Oncology Comment on above: 3 month follow up IVIG for hypogammaglob ulinemia + b12 Start: 09-05-2024 End: 09-05-2024 Patient encounter procedure 09/05/2024 8:45 AM EDT Office Visit [facility] [address] [place] [address] [place] [address] 3 month follow up IVIG for hypogammaglobulinemia + b12 [facility] Comment on above: 3 month follow up IVIG for hypogammaglob ulinemia + b12 Start: 09-04-2024 End: 09-04-2024 Patient encounter procedure 09/04/2024 3:20 PM EDT Office Visit [facility] [address] [facility] [address] [place] [address] Gordo Barfield MD [address] [facility] [address] [place] [address] Arrived [facility] Comment on above: Arrived Start: 08-28-2024 End: 11-27-2024 CBC W Auto Differential panel - Blood COMPLETE BLOOD COUNT AND DIFFERENTIAL Lab Routine Vitamin B12 deficiency Other iron deficiency anemia Hypogammaglobulinemia (HCC) Expected: 08/28/2024, Expires: 11/27/2024 [facility] Work Phone: Comment on above: Expected: 08/28/2024, Expires: Start: 08-28-2024 End: 11-27-2024 Cobalamin (Vitamin B12) [Mass/volume] in Serum or Plasma VITAMIN B12 Lab Routine Vitamin B12 deficiency Other iron deficiency anemia Hypogammaglobulinemia (HCC) Expected: 08/28/2024, Expires: 11/27/2024 [facility] Comment on above: Expected: 08/28/2024, Expires: Start: 08-28-2024 End: 11-27-2024 Comprehensive metabolic 2000 panel - Serum or Plasma COMPREHENSIVE METABOLIC PANEL Lab Routine Vitamin B12 deficiency Other iron deficiency anemia Hypogammaglobulinemia (HCC) Expected: 08/28/2024, Expires: 11/27/2024 [facility] Comment on above: Expected: 08/28/2024, Expires: Start: 08-28-2024 End: 11-27-2024 Ferritin [Mass/volume] in Serum or Plasma FERRITIN Lab Routine Vitamin B12 deficiency Other iron deficiency anemia Hypogammaglobulinemia (HCC) Expected: 08/28/2024, Expires: 11/27/2024 [facility] Comment on above: Expected: 08/28/2024, Expires: Start: 08-28-2024 End: 11-27-2024 Folate [Mass/volume] in Serum or Plasma FOLATE, SERUM Lab Routine Vitamin B12 deficiency Other iron deficiency anemia Hypogammaglobulinemia (HCC) Expected: 08/28/2024, Expires: 11/27/2024 [facility] Comment on above: Expected: 08/28/2024, Expires: Start: 08-28-2024 End: 11-27-2024 IgG [Mass/volume] in Serum or Plasma IMMUNOGLOBULIN G Lab Routine Vitamin B12 deficiency Other iron deficiency anemia Hypogammaglobulinemia (HCC) Expected: 08/28/2024, Expires: 11/27/2024 [facility] Comment on above: Expected: 08/28/2024, Expires: Start: 08-28-2024 End: 11-27-2024 Iron and Iron binding capacity panel - Serum or Plasma IRON AND TIBC Lab Routine Vitamin B12 deficiency Other iron deficiency anemia Hypogammaglobulinemia (HCC) Expected: 08/28/2024, Expires: 11/27/2024 [facility] Comment on above: Expected: 08/28/2024, Expires: Start: 08-22-2024 End: 08-22-2024 Patient encounter procedure 08/22/2024 1:30 PM EDT Office Visit [facility] [address] [place] [address] Raj Kitchen MD [address] [place] [address] [facility] Start: 08-22-2024 End: 08-22-2024 Specialty Pharmacy 08/22/2024 10:15 AM EDT Specialty Pharmacy [facility] [address] [place] [phone] Pharmacist, [facility] [address] [place] [address] [place] [address] REFILL- Benlysta- PAx 02/11/25 08/17 [facility] Comment on above: REFILL- Benlysta- PAx 02/11/25- 08/17 Start: 08-17-2024 End: 08-17-2024 Specialty Pharmacy 08/17/2024 10:00 AM EDT Specialty Pharmacy [facility] [address] [place] [phone] Pharmacist, [facility] [address] [place] [address] [place] [address] REFILL- Benlysta- PAx 02/11/25 [facility] Comment on above: REFILL- Benlysta- PAx 02/11/25 Start: 08-15-2024 End: 08-15-2024 Patient encounter procedure 08/15/2024 10:20 AM EDT Office Visit [facility] [address] [place] [address] Gordo Barfield MD [address] [place] [address] [facility] Start: 08-08-2024 End: 08-08-2024 ambulatory 08/08/2024 9:30 AM EDT Infusion Center Hematology/Oncology [address] [place] [address] [place] [address] IVIG for hypogammaglobulinemia + b12 Hematology/Oncology Comment on above: IVIG for hypogammaglobulinemia + b12 Start: 08-01-2024 End: 08-01-2024 Patient encounter procedure 08/01/2024 10:30 AM EDT Office Visit [facility] [address] [place] [address] Bernabe English MD [address] [place] [address] [facility] Start: 07-25-2024 End: 07-25-2024 Specialty Pharmacy [facility] Comment on above: REFILL- Benlysta- PAx 02/11/25 Arrived Start: 07-20-2024 End: 07-20-2024 ambulatory 07/20/2024 11:30 AM [facility] Infectious Disease [address] [place] [address] Alhaji Head DO [address] [place] [address] Positive blood cultures [R78.81] Infectious Disease Comment on above: Positive blood cultures [R78.81] Start: 07-20-2024 End: 07-20-2024 Patient encounter procedure 07/20/2024 11:30 AM EST Office Visit Infectious Disease [address] [place] [address] Alhaji Head DO [address] [place] [address] Positive blood cultures [R78.81] Infectious Disease Comment on above: Positive blood cultures [R78.81] Start: 07-19-2024 [facility] Start: 07-13-2024 End: 07-13-2024 Patient encounter procedure 07/13/2024 9:20 AM EST Office Visit [address] [place] [address] Lois Holm MD [address] [facility] [address] [place], [place] [id number] [facility] Start: 07-12-2024 End: 07-12-2024 Patient encounter procedure 07/12/2024 2:40 PM EST Office Visit Otolaryngology [address] [place], [place] [id number] Marky Barnes PA-C [address] [place], [place] [id number] Recurrent Thrush. Otolaryngology Comment on above: Recurrent Thrush. Start: 07-11-2024 End: 07-11-2024 ambulatory 07/11/2024 9:30 AM EST Infusion Center Hematology/Oncology [address] [place] [address] [place] [address] IVIG for hypogammaglobulinemia + b12 Hematology/Oncology Comment on above: IVIG for hypogammaglobulinemia + b12 Start: 07-03-2024 End: 04-02-2025 25-hydroxyvitamin D3 [Mass/volume] in Serum or Plasma VITAMIN D 25 HYDROXY Lab Routine Vitamin D deficiency Expected: 07/03/2024 (Approximate), Expires: 04/02/2025 [facility] Comment on above: Expected: 07/03/2024 (Approximate), Expi res: 04/02/2025 Start: 07-03-2024 End: 04-02-2025 C reactive protein [Mass/volume] in Serum or Plasma C-REACTIVE PROTEIN Lab Routine Elevated sed rate Elevated C-reactive protein (CRP) Expected: 07/03/2024 (Approximate), Expires: 04/02/2025 [facility] Comment on above: Expected: 07/03/2024 (Approximate), Expi res: 04/02/2025 Start: 07-03-2024 End: 04-02-2025 CBC panel - Blood by Automated count COMPLETE BLOOD COUNT Lab Routine Anemia of chronic disease Expected: 07/03/2024 (Approximate), Expires: 04/02/2025 [facility] Comment on above: Expected: 07/03/2024 (Approximate), Expi res: 04/02/2025 Start: 07-03-2024 End: 04-02-2025 Comprehensive metabolic 2000 panel - Serum or Plasma COMPREHENSIVE METABOLIC PANEL Lab Routine Elevated LFTs Expected: 07/03/2024 (Approximate), Expires: 04/02/2025 [facility] Work Phone: Comment on above: Expected: 07/03/2024 (Approximate), Expi res: 04/02/2025 Start: 07-03-2024 End: 04-02-2025 Erythrocyte sedimentation rate SEDIMENTATION RATE, WESTERGREN Lab Routine Elevated sed rate Elevated C-reactive protein (CRP) Expected: 07/03/2024 (Approximate), Expires: 04/02/2025 [facility] Comment on above: Expected: 07/03/2024 (Approximate), Expi res: 04/02/2025 Start: 06-29-2024 End: 06-29-2024 Specialty Pharmacy 06/29/2024 10:00 AM EST Specialty Pharmacy [facility] [address] [place] [address] Drive [id number] [place] [address] Pharmacist, [facility] [address] [place] [address] REFILL- Benlysta- PAx 02/11/25 [facility] Comment on above: REFILL- Benlysta- PAx 02/11/25 Start: 06-26-2024 End: 06-26-2024 Nursing evaluation of patient and report 06/26/2024 9:45 AM EST Nurse Visit Hematology/Oncology [address] [facility] [place] [address] Cele [place] Nurse Dre [address] [facility] [place] [address] B12 Hematology/Oncology Comment on above: B12 Start: 06-26-2024 End: 06-26-2024 ambulatory Hematology/Oncology Comment on above: RTC 3 month IVIG for hypogammagl obulinemia Start: 06-26-2024 End: 06-26-2024 Patient encounter procedure 06/26/2024 8:45 AM EST Office Visit [facility] [address] [facility] [place] [address] labs [facility] Comment on above: labs Start: 06-14-2024 End: 06-14-2024 Nursing evaluation of patient and report [facility] Comment on above: Abdominal Pain/Diarrhea/Bandar S CORK MIXER order ed/Patient has prep thru MyChart//cc SIBO - Abdominal Gus n/Diarrhea/Bandar S CORK MIXER ordered/Patient has prep thru MyChart//cc Order in Scanned Documents Start: 06-13-2024 End: 09-12-2024 Cobalamin (Vitamin B12) [Mass/volume] in Serum or Plasma [facility] Comment on above: Expected: 06/13/2024, Expires: Start: 06-13-2024 End: 09-12-2024 Ferritin [Mass/volume] in Serum or Plasma [facility] Work Phone: Comment on above: Expected: 06/13/2024, Expires: Start: 06-13-2024 End: 09-12-2024 Folate [Mass/volume] in Serum or Plasma [facility] Comment on above: Expected: 06/13/2024, Expires: Start: 06-13-2024 End: 09-12-2024 Iron and Iron binding capacity panel - Serum or Plasma [facility] Comment on above: Expected: 06/13/2024, Expires: Start: 06-13-2024 End: 06-13-2024 Nursing evaluation of patient and report 06/13/2024 9:45 AM EST Nurse Visit Hematology/Oncology [address] [facility] [place] [address] Cele [place] Nurse Dre [address] [facility] [place] [address] B12 Hematology/Oncology Comment on above: B12 Start: 06-13-2024 End: 06-13-2024 ambulatory Hematology/Oncology Comment on above: RTC 3 month IVIG for hypogammagl obulinemia Start: 06-13-2024 End: 06-13-2024 Patient encounter procedure 06/13/2024 8:45 AM EST Office Visit [facility] [address] [facility] [place] [address] labs [facility] Comment on above: labs Start: [...] 9:30 AM EST Nurse Visit Hematology/Oncology [address] [facility] [place] [address] Cele [place] Nurse Dre [address] [facility] [place] [address] B12 Hematology/Oncology Comment on above: B12 Start: 05-19-2024 End: 05-19-2024 ambulatory 05/19/2024 9:30 AM EST Infusion Center Hematology/Oncology [address] [facility] [place] [address] IVIG for hypogammaglobulinemia Hematology/Oncology Comment on above: IVIG for hypogammaglobulinemia Start: 05-12-2024 End: 05-12-2024 Specialty Pharmacy 05/12/2024 10:00 AM EST Specialty [facility]acy [facility] [employer] [address] [place] [address] Pharmacist, [facility] [address] [place] [address] [place] [address] REFILL- Benlysta- PAx 02/11/25 [facility] Comment on above: REFILL- Benlysta- PAx 02/11/25 Start: 04-28-2024 End: 04-28-2025 US.doppler Extremity arteries - bilateral for physiologic artery study Vas art doppler lwr bilat mult lev/PVR Vascular Ultrasound Routine Peripheral vascular disease, unspecified (CMS-HCC) Cold extremities Systemic lupus erythematosus ([facility]-HCC) Expected: 04/28/2024, Expires: 04/28/2025 [facility] Work Phone: Comment on above: Expected: 04/28/2024, Expires: Start: 04-24-2024 End: 04-24-2024 Nursing evaluation of patient and report 04/24/2024 9:30 AM EST Nurse Visit Hematology/Oncology [address] [facility] [place] [address] Cele Marshall Nurse Dre [address] [facility] [place] [address] B12 Hematology/Oncology Comment on above: B12 Start: 04-18-2024 End: 04-18-2024 Nursing evaluation of patient and report [facility] Comment on above: [...] lower extremity, unspecified laterality Systemic lupus erythematosus ([facility]-HCC) Expected: 04/06/2024, Expires: 2025 [facility] Work Phone: Comment on above: Expected: 04/06/2024, Expires: Start: 03-28-2024 End: 03-28-2024 ambulatory 03/28/2024 1:00 PM [facility] Hematology/Oncology [address] [place] [address] [place] [address] Vera Najera MD [address] [place] [address] [place] [address] 13 wk virtual after labs last week Hematology/Oncology Comment on above: 13 wk virtual after labs last week Start: 03-23-2024 End: 03-23-2025 aPTT in Blood by Coagulation assay APTT Lab Routine Menorrhagia with regular cycle Expected: 03/23/2024 (Approximate), Expires: 03/23/2025 [facility] Comment on above: Expected: 03/23/2024 (Approximate), Expi res: 03/23/2025 Start: 03-23-2024 End: 03-23-2025 US for US PELVIS-TRANSVAG IF INDICATED Imaging Routine Menorrhagia with regular cycle Expected: 03/23/2024 (Approximate), Expires: 03/23/2025 [facility] Comment on above: Expected: 03/23/2024 (Approximate), Expi res: 03/23/2025 Start: 03-21-2024 End: 03-21-2024 Nursing evaluation of patient and report 03/21/2024 11:45 AM EDT Nurse Visit Hematology/Oncology [address] [facility] [place] [address] Cele Marshall Nurse Dre [address] [facility] [place] [address] b12 Hematology/Oncology Comment on above: b12 Start: 03-21-2024 End: 03-21-2024 Patient encounter procedure 03/21/2024 11:15 AM EDT Office Visit [facility] [address] [facility] [place] [address] LAb [facility] Comment on above: LAb Start: 03-20-2024 End: 12-29-2024 25-hydroxyvitamin D3 [Mass/volume] in Serum or Plasma VITAMIN D 25 HYDROXY Lab Routine Vitamin D deficiency Expected: 03/20/2024 (Approximate), Expires: 12/29/2024 [facility] Comment on above: Expected: 03/20/2024 (Approximate), Expi res: 12/29/2024 Start: 03-20-2024 End: 12-29-2024 BLOOD TB SCREEN BLOOD TB SCREEN Lab Routine Screening-pulmonary TB Expected: 03/20/2024 (Approximate), Expires: 12/29/2024 [facility] Comment on above: Expected: 03/20/2024 (Approximate), Expi res: 12/29/2024 Start: 03-20-2024 End: 12-29-2024 C reactive protein [Mass/volume] in Serum or Plasma C-REACTIVE PROTEIN Lab Routine Elevated C-reactive protein (CRP) Elevated sed rate Expected: 03/20/2024 (Approximate), Expires: 12/29/2024 [facility] Comment on above: Expected: 03/20/2024 (Approximate), Expi res: 12/29/2024 Start: 03-20-2024 End: 06-19-2024 CBC W Auto Differential panel - Blood COMPLETE BLOOD COUNT AND DIFFERENTIAL Lab Routine Megaloblastic anemia due to vitamin B12 deficiency Elevated sed rate Obstructive sleep apnea syndrome Expected: 03/20/2024 (Approximate), Expires: 06/19/2024 [facility] Comment on above: Expected: 03/20/2024 (Approximate), Expi res: 06/19/2024 Start: 03-20-2024 End: 06-19-2024 Cobalamin (Vitamin B12) [Mass/volume] in Serum or Plasma VITAMIN B12 Lab Routine Megaloblastic anemia due to vitamin B12 deficiency Elevated sed rate Obstructive sleep apnea syndrome Expected: 03/20/2024 (Approximate), Expires: 06/19/2024 [facility] Comment on above: Expected: 03/20/2024 (Approximate), Expi res: 06/19/2024 Start: 03-20-2024 End: 06-19-2024 Comprehensive metabolic 2000 panel - Serum or Plasma COMPREHENSIVE METABOLIC PANEL Lab Routine Megaloblastic anemia due to vitamin B12 deficiency Elevated sed rate Obstructive sleep apnea syndrome Expected: 03/20/2024 (Approximate), Expires: 06/19/2024 [facility] Work Phone: Comment on above: Expected: 03/20/2024 (Approximate), Expi res: 06/19/2024 Start: 03-20-2024 End: 12-29-2024 Erythrocyte sedimentation rate SEDIMENTATION RATE, WESTERGREN Lab Routine Elevated C-reactive protein (CRP) Elevated sed rate Expected: 03/20/2024 (Approximate), Expires: 12/29/2024 [facility] Work Phone: Comment on above: Expected: 03/20/2024 (Approximate), Expi res: 12/29/2024 Start: 03-20-2024 End: 06-19-2024 Ferritin [Mass/volume] in Serum or Plasma FERRITIN Lab Routine Megaloblastic anemia due to vitamin B12 deficiency Elevated sed rate Obstructive sleep apnea syndrome Expected: 03/20/2024 (Approximate), Expires: 06/19/2024 [facility] Comment on above: Expected: 03/20/2024 (Approximate), Expi res: 06/19/2024 Start: 03-20-2024 End: 06-19-2024 Folate [Mass/volume] in Serum or Plasma FOLATE, SERUM Lab Routine Megaloblastic anemia due to vitamin B12 deficiency Elevated sed rate Obstructive sleep apnea syndrome Expected: 03/20/2024 (Approximate), Expires: 06/19/2024 [facility] Comment on above: Expected: 03/20/2024 (Approximate), Expi res: 06/19/2024 Start: 03-20-2024 End: 06-19-2024 IMMUNOGLOBULINS,IGG,IGA,IG M IMMUNOGLOBULINS,IGG,IGA,IG M Lab Routine Megaloblastic anemia due to vitamin B12 deficiency Elevated sed rate Obstructive sleep apnea syndrome Expected: 03/20/2024 (Approximate), Expires: 06/19/2024 [facility] Comment on above: Expected: 03/20/2024 (Approximate), Expi res: 06/19/2024 Start: 03-20-2024 End: 06-19-2024 Iron and Iron binding capacity panel - Serum or Plasma IRON AND TIBC Lab Routine Megaloblastic anemia due to vitamin B12 deficiency Elevated sed rate Obstructive sleep apnea syndrome Expected: 03/20/2024 (Approximate), Expires: 06/19/2024 [facility] Comment on above: Expected: 03/20/2024 (Approximate), Expi res: 06/19/2024 Start: 03-18-2024 End: 03-18-2024 Patient encounter procedure 03/18/2024 9:00 AM EDT [facility] Rheumatology [address] [place] [address] Lynne Ni MD [address] [place], [place] [id number] May offer 03/18/24 Sat [facility] 4th floor in person/virtual/phone for lupus Rheumatology Comment on above: May offer 03/18/24 Sat [facility] 4th floor in person/virtual/phone for lupus Start: 03-16-2024 Patient referral [facility] Work Phone: Start: 03-16-2024 End: 05-16-2025 US Breast - bilateral Bilateral breast US complete Imaging Routine Nipple discharge Expected: 03/16/2024, Expires: 05/16/2025 [facility] Work Phone: Comment on above: Expected: 03/16/2024, [...] Visit Hematology/Oncology [address] [place] [address] Cele Marshall Nurse Dre [address] [facility] [place] [address] b12 Hematology/Oncology Comment on above: b12 Start: 02-22-2024 End: 02-22-2024 Patient encounter procedure 02/22/2024 11:15 AM EDT Office Visit [facility] [address] [place] [address] LAb [facility] Comment on above: LAb Start: 02-21-2024 End: 02-21-2024 Nursing evaluation of patient and report 02/21/2024 10:45 AM EDT Nurse Visit Hematology/Oncology [address] [place] [address] Cele Marshall Nurse Dre [address] [facility] [place] [address] b12 Hematology/Oncology Comment on above: b12 Start: 02-21-2024 End: 02-21-2024 Patient encounter procedure 02/21/2024 10:30 AM EDT Office Visit [facility] [address] [place] [address] LAb [facility] Comment on above: LAb Start: 02-16-2024 [facility] Start: 02-14-2024 End: 02-14-2024 Follow-up encounter Neurology Comment on above: Cpap follow up REFILL- Benlysta- PA x 02/04/24- NCA 09/2024-, ND 02/23 Start: 02-09-2024 End: 02-09-2024 Patient encounter procedure 02/09/2024 8:00 AM EDT Office Visit [facility] NEURO [address] [place] [id number] Zita Cuellar, TOOL AND DIE SUPERVISOR [address], [place] [address] [facility] NEURO [address] Start: 01-27-2024 End: 04-27-2024 Bacteria identified in Blood by Culture BLOOD CULTURE Microbiology Routine Pseudomonas infection Expected: 01/27/2024, Expires: 04/27/2024 [facility] Work Phone: Comment on above: Expected: 01/27/2024, Expires: Start: 01-27-2024 End: 01-27-2024 Follow-up encounter 01/27/2024 10:00 AM EDT [facility] Infectious Disease [address] [place] [address] Alhaji Head DO [facility] [address] [place] [address] follow up Infectious Disease Comment on above: follow up Start: 01-25-2024 End: 01-25-2024 Nursing evaluation of patient and report Hematology/Oncology Comment on above: b12 B12(change date) Start: 01-25-2024 End: 01-25-2024 Patient encounter procedure [facility] Comment on above: LAb NO LAB ORDERS LAb Start: 01-24-2024 Influenza vaccination Influenza Vaccine (#1) [facility] Comment on above: Postponed from 01/22/2023 (Patient Refus ed) Start: 01-23-2024 Covid-19 Vaccine ( season) Covid-19 Vaccine () [facility] Start: 01-23-2024 Covid-19 Vaccine (6 - 2024-25 season) Covid-19 Vaccine ( season) [facility] Start: 01-23-2024 Influenza vaccination [facility] Start: 01-20-2024 End: 01-20-2024 Specialty Pharmacy [facility] Comment on above: refill - benlysta- NCA - pa exp: 02/04/24- 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 Start: 12-27-2023 End: 12-27-2023 Nursing evaluation of patient and report 12/27/2023 12:00 PM EDT Nurse Visit Hematology/Oncology [address] [facility] [place] [address] Cele Marshall Nurse Dre [address] [facility] [place] [address] b12 Hematology/Oncology Comment on above: b12 Start: 12-27-2023 End: 12-27-2023 Follow-up encounter 12/27/2023 11:30 AM EDT Visit (SP) Office Hematology/Oncology [address] [facility] [place] [address] Neda Hill PA-C [address] [facility] [place] [address] 13 week follow up, labs 1 week before Hematology/Oncology Comment on above: 13 week follow up, labs 1 week before Start: 12-27-2023 End: 12-27-2023 Patient encounter procedure 12/27/2023 11:15 AM EDT Office Visit [facility] [address] [facility] [address] LAb [facility] Comment on above: LAb Start: 12-13-2023 End: 12-13-2023 Specialty Pharmacy 12/13/2023 10:00 AM EDT Specialty Pharmacy [facility] [employer] [facility] [id number] [place] [address] Pharmacist, [facility] [address] [place] [address] [place] [address] refill - benlysta- NCA - pa exp: 02/04/24- [facility] Comment on above: refill - benlysta- NCA 09/2024-- pa exp: 02/04/24- Start: 12-10-2023 End: 12-10-2023 Follow-up encounter 12/10/2023 10:45 AM EDT Visit (SP) Office Hematology/Oncology [address] [facility] [place] [address] Vera Najera MD [address] [facility] [place] [address] 13 week follow up, labs 1 week before Hematology/Oncology Comment on above: 13 week follow up, labs 1 week before Start: 12-04-2023 End: 09-03-2024 25-hydroxyvitamin D3 [Mass/volume] in Serum or Plasma VITAMIN D 25 HYDROXY Lab Routine Vitamin D deficiency Expected: 12/04/2023 (Approximate), Expires: 09/03/2024 [facility] Work Phone: Comment on above: Expected: 12/04/2023 (Approximate), Expi res: 09/03/2024 Start: 12-04-2023 End: 09-03-2024 C reactive protein [Mass/volume] in Serum or Plasma C-REACTIVE PROTEIN Lab Routine Elevated sed rate Elevated C-reactive protein (CRP) Expected: 12/04/2023 (Approximate), Expires: 09/03/2024 [facility] Work Phone: Comment on above: Expected: 12/04/2023 (Approximate), Expi res: 09/03/2024 Start: 12-04-2023 End: 09-03-2024 CBC panel - Blood by Automated count COMPLETE BLOOD COUNT Lab Routine Anemia of chronic disease Expected: 12/04/2023 (Approximate), Expires: 09/03/2024 [facility] Work Phone: Comment on above: Expected: 12/04/2023 (Approximate), Expi res: 09/03/2024 Start: 12-04-2023 End: 09-03-2024 Comprehensive metabolic 2000 panel - Serum or Plasma COMPREHENSIVE METABOLIC PANEL Lab Routine Elevated LFTs Expected: 12/04/2023 (Approximate), Expires: 09/03/2024 [facility] Work Phone: Comment on above: Expected: 12/04/2023 (Approximate), Expi res: 09/03/2024 Start: 12-04-2023 End: 09-03-2024 Erythrocyte sedimentation rate SEDIMENTATION RATE, WESTERGREN Lab Routine Elevated sed rate Elevated C-reactive protein (CRP) Expected: 12/04/2023 (Approximate), Expires: 09/03/2024 [facility] Work Phone: Comment on above: Expected: 12/04/2023 (Approximate), Expi res: 09/03/2024 Start: 12-03-2023 End: 12-03-2023 Nursing evaluation of patient and report 12/03/2023 11:00 AM EDT Nurse Visit Hematology/Oncology [address] [facility] [address] [place], [place] [id number] Cele Marshall Nurse Dre [address] [facility] [place] [address] b12 Hematology/Oncology Comment on above: b12 Start: 12-03-2023 End: 12-03-2023 Patient encounter procedure 12/03/2023 10:45 AM EDT Office Visit [facility] [address] [facility] [place] [address] lab [facility] Comment on above: lab Start: 12-02-2023 End: 09-08-2024 CBC W Auto Differential panel - Blood COMPLETE BLOOD COUNT AND DIFFERENTIAL Lab Routine Megaloblastic anemia due to vitamin B12 deficiency High total serum IgM Expected: 12/02/2023 (Approximate), Expires: 09/08/2024 [facility] Work Phone: Comment on above: Expected: 12/02/2023 (Approximate), Expi res: 09/08/2024 Start: 12-02-2023 End: 09-08-2024 Cobalamin (Vitamin B12) [Mass/volume] in Serum or Plasma VITAMIN B12 Lab Routine Megaloblastic anemia due to vitamin B12 deficiency High total serum IgM Expected: 12/02/2023 (Approximate), Expires: 09/08/2024 [facility] Work Phone: Comment on above: Expected: 12/02/2023 (Approximate), Expi res: 09/08/2024 Start: 12-02-2023 End: 09-08-2024 Comprehensive metabolic 2000 panel - Serum or Plasma COMPREHENSIVE METABOLIC PANEL Lab Routine Megaloblastic anemia due to vitamin B12 deficiency High total serum IgM Expected: 12/02/2023 (Approximate), Expires: 09/08/2024 [facility] Work Phone: Comment on above: Expected: 12/02/2023 (Approximate), Expi res: 09/08/2024 Start: 12-02-2023 End: 03-02-2024 Erythrocyte sedimentation rate SEDIMENTATION RATE, WESTERGREN Lab Routine Megaloblastic anemia due to vitamin B12 deficiency High total serum IgM Expected: 12/02/2023 (Approximate), Expires: 03/02/2024 [facility] Work Phone: Comment on above: Expected: 12/02/2023 (Approximate), Expi res: 03/02/2024 Start: 12-02-2023 End: 09-08-2024 Ferritin [Mass/volume] in Serum or Plasma FERRITIN Lab Routine Megaloblastic anemia due to vitamin B12 deficiency High total serum IgM Expected: 12/02/2023 (Approximate), Expires: 09/08/2024 [facility] Work Phone: Comment on above: Expected: 12/02/2023 (Approximate), Expi res: 09/08/2024 Start: 12-02-2023 End: 09-08-2024 Folate [Mass/volume] in Serum or Plasma FOLATE, SERUM Lab Routine Megaloblastic anemia due to vitamin B12 deficiency High total serum IgM Expected: 12/02/2023 (Approximate), Expires: 09/08/2024 [facility] Work Phone: Comment on above: Expected: 12/02/2023 (Approximate), Expi res: 09/08/2024 Start: 12-02-2023 End: 03-02-2024 IgA [Mass/volume] in Serum or Plasma IMMUNOGLOBULIN A Lab Routine Megaloblastic anemia due to vitamin B12 deficiency High total serum IgM Expected: 12/02/2023 (Approximate), Expires: 03/02/2024 [facility] Work Phone: Comment on above: Expected: 12/02/2023 (Approximate), Expi res: 03/02/2024 Start: 12-02-2023 End: 03-02-2024 IgE [Units/volume] in Serum or Plasma IMMUNOGLOBULIN E Lab Routine Megaloblastic anemia due to vitamin B12 deficiency High total serum IgM Expected: 12/02/2023 (Approximate), Expires: 03/02/2024 [facility] Work Phone: Comment on above: Expected: 12/02/2023 (Approximate), Expi res: 03/02/2024 Start: 12-02-2023 End: 03-02-2024 IgG [Mass/volume] in Serum or Plasma IMMUNOGLOBULIN G Lab Routine Megaloblastic anemia due to vitamin B12 deficiency High total serum IgM Expected: 12/02/2023 (Approximate), Expires: 03/02/2024 [facility] Work Phone: Comment on above: Expected: 12/02/2023 (Approximate), Expi res: 03/02/2024 Start: 12-02-2023 End: 03-02-2024 IgM [Mass/volume] in Serum or Plasma IMMUNOGLOBULIN M Lab Routine Megaloblastic anemia due to vitamin B12 deficiency High total serum IgM Expected: 12/02/2023 (Approximate), Expires: 03/02/2024 [facility] Work Phone: Comment on above: Expected: 12/02/2023 (Approximate), Expi res: 03/02/2024 Start: 12-02-2023 End: 09-08-2024 Iron and Iron binding capacity panel - Serum or Plasma IRON AND TIBC Lab Routine Megaloblastic anemia due to vitamin B12 deficiency High total serum IgM Expected: 12/02/2023 (Approximate), Expires: 09/08/2024 [facility] Work Phone: Comment on above: Expected: 12/02/2023 (Approximate), Expi res: 09/08/2024 Start: 11-29-2023 End: 11-29-2023 Nursing evaluation of patient and report 11/29/2023 2:15 PM EDT Nurse Visit Hematology/Oncology [address] [facility] [place] [address] Cele Marshall Nurse Dre [address] [facility] [place] [address] b12 Hematology/Oncology Comment on above: b12 Start: 11-15-2023 End: 11-15-2023 Specialty Pharmacy 11/15/2023 10:00 AM EDT Specialty Pharmacy [facility] [place] [address] Pharmacist, [facility] [address] [place] [address] [place] [address] refill - benlysta- NCA - pa exp: 02/04/24- [facility] Comment on above: refill - benlysta- NCA 09/2024-- pa exp: 02/04/24- Start: 10-29-2023 End: 10-29-2023 Nursing evaluation of patient and report 10/29/2023 11:00 AM EDT Nurse Visit Hematology/Oncology [address] [facility] [place] [address] Cele Marshall Nurse Dre [address] [facility] [place] [address] b12 Hematology/Oncology Comment on above: b12 Start: 10-15-2023 End: 10-15-2023 Specialty Pharmacy 10/15/2023 10:00 AM EDT Specialty Pharmacy [facility] [place] [address] Pharmacist, [facility] [address] [place] [address] [place] [address] refill - benlysta-- pa exp: 02/04/24-l/m 10/11 [facility] Comment on above: refill - benlysta-Thursdays- pa exp: 01/22 08/14-l/m 10/11 Start: 10-12-2023 End: 10-12-2023 Specialty Pharmacy 10/12/2023 10:00 AM EDT Specialty Pharmacy [facility] [address] [place] [id number] Pharmacist, [facility] [address] [place] [address] [place] [address] refill - benlysta-Thursdays- pa exp: 02/04/24- [facility] Comment on above: refill - benlysta-Thursdays- pa exp: 01/22 08/14- Start: 10-05-2023 End: 10-05-2023 Patient encounter procedure 10/05/2023 8:00 AM EDT [facility] Rheumatology [address] [place] [address] Lynne Ni MD [address] [place], [place] [id number] 6 mo f/u for Lupus Rheumatology Comment on above: 6 mo f/u for Lupus Start: 10-01-2023 End: 10-01-2023 Nursing evaluation of patient and report 10/01/2023 11:00 AM EDT Nurse Visit Hematology/Oncology [address] [facility] [address] Cele Marshall Nurse Dre [address] [facility] [place] [address] b12 Hematology/Oncology Comment on above: b12 Start: 09-16-2023 End: 09-16-2023 Specialty Pharmacy 09/16/2023 10:00 AM EDT Specialty Pharmacy [facility] [address] [place] [phone] Pharmacist, [facility] [address] [place] [address] [place] [address] refill - benlysta-Thursdays- pa exp: 02/04/24-lv [facility] Comment on above: refill - benlysta-Thursdays- pa exp: 01/22 08/14-lvm Start: 09-13-2023 End: 09-13-2023 Patient encounter procedure 09/13/2023 9:00 AM EDT Office Visit [facility] [address] [place] [address] Kade Richardson MD [address] [facility] [address] [place] [address], [place] [id number] [facility] Start: 07-19-2023 End: 07-19-2023 Patient encounter procedure [facility] Start: 07-15-2023 End: 07-15-2023 Patient encounter procedure 07/15/2023 10:50 AM EST Office Visit [facility] [address] [place] [address] Bernabe English MD [address] [place] [address] [facility] Start: 07-06-2023 End: 07-06-2023 Patient encounter procedure 07/06/2023 2:30 PM EST Office Visit [facility] NE[facility]O [address] [facility] [address] [place] [address], [place] [phone] Kade Richardson MD [address] [facility] [address] [place] [address], [place] [address] [facility] NEURO [address] Start: 07-06-2023 End: 07-06-2024 Protein electrophoresis, serum Protein electrophoresis, serum Lab Routine Autoimmune disease (CMS/HCC) Autonomic dysfunction Expected: 07/06/2023 (Approximate), Expires: 07/06/2024 [facility] Work Phone: Comment on above: Expected: 07/06/2023 (Approximate), Expi res: 07/06/2024 Start: 07-06-2023 End: 07-06-2024 Protein electrophoresis, urine Protein electrophoresis, urine Lab Routine Autoimmune disease (CMS/HCC) Autonomic dysfunction Expected: 07/06/2023 (Approximate), Expires: 07/06/2024 [facility] Comment on above: Expected: 07/06/2023 (Approximate), Expi res: 07/06/2024 Start: 06-09-2023 End: 06-09-2024 Holter monitor study Holter Or Event [employer] Cardiac Services Routine Irregular heart rate Expected: 06/09/2023 (Approximate), Expires: 06/09/2024 [facility] Work Phone: Comment on above: Expected: 06/09/2023 (Approximate), Expi res: 06/09/2024 Start: 06-09-2023 End: 06-09-2024 Lipid 1996 panel - Serum or Plasma Lipid Panel Lab Routine Primary hypertension Expected: 06/09/2023 (Approximate), Expires: 06/09/2024 [facility] Work Phone: Comment on above: Expected: 06/09/2023 (Approximate), Expi res: 06/09/2024 Start: 06-09-2023 End: 06-09-2024 Thyrotropin [Units/volume] in Serum or Plasma Thyroid Stimulating Hormone Lab Routine Irregular heart rate Expected: 06/09/2023 (Approximate), Expires: 06/09/2024 [facility] Work Phone: Comment on above: Expected: 06/09/2023 (Approximate), Expi res: 06/09/2024 Start: 06-09-2023 End: 06-09-2024 Thyroxine (T4) free [Mass/volume] in Serum or Plasma Thyroxine, Free Lab Routine Irregular heart rate Expected: 06/09/2023 (Approximate), Expires: 06/09/2024 [facility] Work Phone: Comment on above: Expected: [...] D deficiency Expected: 04/25/2023 (Approximate), Expires: 01/25/2024 [facility] Work Phone: Comment on above: Expected: 04/25/2023 (Approximate), Expi res: 01/25/2024 Start: 04-25-2023 End: 01-25-2024 C reactive protein [Mass/volume] in Serum or Plasma C-REACTIVE PROTEIN (CRP) Lab Routine Elevated sed rate Elevated C-reactive protein (CRP) Expected: 04/25/2023 (Approximate), Expires: 01/25/2024 [facility] Work Phone: Comment on above: Expected: 04/25/2023 (Approximate), Expi res: 01/25/2024 Start: 04-25-2023 End: 01-25-2024 CBC panel - Blood by Automated count CBC Lab Routine Anemia of chronic disease Expected: 04/25/2023 (Approximate), Expires: 01/25/2024 [facility] Work Phone: Comment on above: Expected: 04/25/2023 (Approximate), Expi res: 01/25/2024 Start: 04-25-2023 End: 01-25-2024 Comprehensive metabolic 2000 panel - Serum or Plasma COMP METABOLIC PANEL Lab Routine Elevated LFTs Expected: 04/25/2023 (Approximate), Expires: 01/25/2024 [facility] Work Phone: Comment on above: Expected: 04/25/2023 (Approximate), Expi res: 01/25/2024 Start: 04-25-2023 End: 01-25-2024 Erythrocyte sedimentation rate SED RATE WESTERGREN Lab Routine Elevated sed rate Elevated C-reactive protein (CRP) Expected: 04/25/2023 (Approximate), Expires: 01/25/2024 [facility] Work Phone: Comment on above: Expected: 04/25/2023 (Approximate), Expi res: 01/25/2024 Start: 04-20-2023 COVID-19 Vaccine (4 - Pfizer risk series) COVID-19 Vaccine (4 - Pfizer risk series) [facility] Start: 04-20-2023 Covid-19 Vaccine ( season) Covid-19 Vaccine () [facility] Start: 04-20-2023 Covid-19 Vaccine ( season) Covid-19 Vaccine () [facility] Start: 04-16-2023 End: 02-20-2024 CBC W Auto Differential panel - Blood CBC + DIFF Lab Routine Megaloblastic anemia due to vitamin B12 deficiency Elevated sed rate Chronic fatigue and malaise High total serum IgM JOSE RAFAEL (obstructive sleep apnea) Expected: 04/16/2023 (Approximate), Expires: 02/20/2024 [facility] Work Phone: Comment on above: Expected: 04/16/2023 (Approximate), Expi res: 02/20/2024 Start: 04-16-2023 End: 02-20-2024 Cobalamin (Vitamin B12) [Mass/volume] in Serum or Plasma VITAMIN B12 BLOOD Lab Routine Megaloblastic anemia due to vitamin B12 deficiency Elevated sed rate Chronic fatigue and malaise High total serum IgM JOSE RAFAEL (obstructive sleep apnea) Expected: 04/16/2023 (Approximate), Expires: 02/20/2024 [facility] Work Phone: Comment on above: Expected: 04/16/2023 (Approximate), Expi res: 02/20/2024 Start: 04-16-2023 End: 02-20-2024 Comprehensive metabolic 2000 panel - Serum or Plasma COMP METABOLIC PANEL Lab Routine Megaloblastic anemia due to vitamin B12 deficiency Elevated sed rate Chronic fatigue and malaise High total serum IgM JOSE RAFAEL (obstructive sleep apnea) Expected: 04/16/2023 (Approximate), Expires: 02/20/2024 [facility] Work Phone: Comment on above: Expected: 04/16/2023 (Approximate), Expi res: 02/20/2024 Start: 04-16-2023 End: 02-20-2024 Ferritin [Mass/volume] in Serum or Plasma FERRITIN BLD Lab Routine Megaloblastic anemia due to vitamin B12 deficiency Elevated sed rate Chronic fatigue and malaise High total serum IgM JOSE RAFAEL (obstructive sleep apnea) Expected: 04/16/2023 (Approximate), Expires: 02/20/2024 [facility] Work Phone: Comment on above: Expected: 04/16/2023 (Approximate), Expi res: 02/20/2024 Start: 04-16-2023 End: 02-20-2024 Folate [Mass/volume] in Serum or Plasma FOLATE SERUM Lab Routine Megaloblastic anemia due to vitamin B12 deficiency Elevated sed rate Chronic fatigue and malaise High total serum IgM JOSE RAFAEL (obstructive sleep apnea) Expected: 04/16/2023 (Approximate), Expires: 02/20/2024 [facility] Work Phone: Comment on above: Expected: 04/16/2023 (Approximate), Expi res: 02/20/2024 Start: 04-16-2023 End: 02-20-2024 Iron and Iron binding capacity panel - Serum or Plasma IRON + TIBC Lab Routine Megaloblastic anemia due to vitamin B12 deficiency Elevated sed rate Chronic fatigue and malaise High total serum IgM JOSE RAFAEL (obstructive sleep apnea) Expected: 04/16/2023 (Approximate), Expires: 02/20/2024 [facility] Work Phone: Comment on above: Expected: 04/16/2023 (Approximate), Expi res: 02/20/2024 Start: 03-23-2023 COVID-19 Vaccine (3 - Pfizer risk series) COVID-19 Vaccine (3 - Pfizer risk series) [facility] Start: 03-17-2023 Diabetes mellitus screening Diabetes Screening [facility] Start: 03-10-2023 End: 06-09-2023 Insulin [Units/volume] in Serum or Plasma INSULIN ASSAY BLOOD Lab Routine Insulin resistance, unspecified Expected: 03/10/2023, Expires: 06/09/2023 [facility] Work Phone: Comment on above: Expected: 03/10/2023, Expires: 4 Start: 03-10-2023 End: 06-09-2023 INSULIN ANTIBODY BLD INSULIN ANTIBODY BLD Lab Routine Insulin resistance, unspecified Expected: 03/10/2023, Expires: 06/09/2023 [facility] Work Phone: Comment on above: Expected: 03/10/2023, Expires: 4 Start: 02-11-2023 End: 02-08-2024 [id number] [Mass/volume] in Serum or Plasma B2 MICROGLOBULIN B Lab Routine Megaloblastic anemia due to vitamin B12 deficiency High total serum IgM Elevated sed rate Expected: 02/11/2023 (Approximate), Expires: 02/08/2024 [facility] Work Phone: Comment on above: Expected: 02/11/2023 (Approximate), Expi res: 02/08/2024 Start: 02-11-2023 End: 02-08-2024 Calcium.ionized [Moles/volume] in Blood CALCIUM IONIZED BLOOD Lab Routine Megaloblastic anemia due to vitamin B12 deficiency High total serum IgM Elevated sed rate Expected: 02/11/2023 (Approximate), Expires: 02/08/2024 [facility] Work Phone: Comment on above: Expected: 02/11/2023 (Approximate), Expi res: 02/08/2024 Start: 02-11-2023 End: 02-08-2024 CBC W Auto Differential panel - Blood CBC + DIFF Lab Routine Megaloblastic anemia due to vitamin B12 deficiency High total serum IgM Elevated sed rate Expected: 02/11/2023 (Approximate), Expires: 02/08/2024 [facility] Work Phone: Comment on above: Expected: 02/11/2023 (Approximate), Expi res: 02/08/2024 Start: 02-11-2023 End: 02-08-2024 Cobalamin (Vitamin B12) [Mass/volume] in Serum or Plasma VITAMIN B12 BLOOD Lab Routine Megaloblastic anemia due to vitamin B12 deficiency High total serum IgM Elevated sed rate Expected: 02/11/2023 (Approximate), Expires: 02/08/2024 [facility] Work Phone: Comment on above: Expected: 02/11/2023 (Approximate), Expi res: 02/08/2024 Start: 02-11-2023 End: 02-08-2024 Comprehensive metabolic 2000 panel - Serum or Plasma COMP METABOLIC PANEL Lab Routine Megaloblastic anemia due to vitamin B12 deficiency High total serum IgM Elevated sed rate Expected: 02/11/2023 (Approximate), Expires: 02/08/2024 [facility] Work Phone: Comment on above: Expected: 02/11/2023 (Approximate), Expi res: 02/08/2024 Start: 02-11-2023 End: 02-08-2024 Ferritin [Mass/volume] in Serum or Plasma FERRITIN BLD Lab Routine Megaloblastic anemia due to vitamin B12 deficiency High total serum IgM Elevated sed rate Expected: 02/11/2023 (Approximate), Expires: 02/08/2024 [facility] Work Phone: Comment on above: Expected: 02/11/2023 (Approximate), Expi res: 02/08/2024 Start: 02-11-2023 End: 02-08-2024 Folate [Mass/volume] in Serum or Plasma FOLATE SERUM Lab Routine Megaloblastic anemia due to vitamin B12 deficiency High total serum IgM Elevated sed rate Expected: 02/11/2023 (Approximate), Expires: 02/08/2024 [facility] Work Phone: Comment on above: Expected: 02/11/2023 (Approximate), Expi res: 02/08/2024 Start: 02-11-2023 End: 02-08-2024 Iron and Iron binding capacity panel - Serum or Plasma IRON + TIBC Lab Routine Megaloblastic anemia due to vitamin B12 deficiency High total serum IgM Elevated sed rate Expected: 02/11/2023 (Approximate), Expires: 02/08/2024 [facility] Work Phone: Comment on above: Expected: 02/11/2023 (Approximate), Expi res: 02/08/2024 Start: 02-11-2023 End: 04-13-2023 KAPPA/FARMER,FREE,SER KAPPA/FARMER,FREE,SER Lab Routine Megaloblastic anemia due to vitamin B12 deficiency High total serum IgM Elevated sed rate Expected: 02/11/2023 (Approximate), Expires: 04/13/2023 [facility] Work Phone: Comment on above: Expected: 02/11/2023 (Approximate), Expi res: 04/13/2023 Start: 02-11-2023 End: 02-08-2024 Lactate dehydrogenase [Enzymatic activity/volume] in Serum or Plasma LD LACTATE DEHYDRO Lab Routine Megaloblastic anemia due to vitamin B12 deficiency High total serum IgM Elevated sed rate Expected: 02/11/2023 (Approximate), Expires: 02/08/2024 [facility] Work Phone: Comment on above: Expected: 02/11/2023 (Approximate), Expi res: 02/08/2024 Start: 02-11-2023 End: 02-08-2024 MONOCLONAL PROTEIN, SERUM (BLOOD) MONOCLONAL PROTEIN, SERUM (BLOOD) Lab Routine Megaloblastic anemia due to vitamin B12 deficiency High total serum IgM Elevated sed rate Expected: 02/11/2023 (Approximate), Expires: 02/08/2024 [facility] Work Phone: Comment on above: Expected: 02/11/2023 (Approximate), Expi res: 02/08/2024 Start: 02-11-2023 End: 02-08-2024 Phosphate [Mass/volume] in Serum or Plasma PHOSPHORUS INORGANIC Lab Routine Megaloblastic anemia due to vitamin B12 deficiency High total serum IgM Elevated sed rate Expected: 02/11/2023 (Approximate), Expires: 02/08/2024 [facility] Work Phone: Comment on above: Expected: 02/11/2023 (Approximate), Expi res: 02/08/2024 Start: 02-11-2023 End: 02-08-2024 PROTEIN ELECTROPHORESIS SERUM W/INTERP PROTEIN ELECTROPHORESIS SERUM W/INTERP Lab Routine Megaloblastic anemia due to vitamin B12 deficiency High total serum IgM Elevated sed rate Expected: 02/11/2023 (Approximate), Expires: 02/08/2024 [facility] Work Phone: Comment on above: Expected: 02/11/2023 (Approximate), Expi res: 02/08/2024 Start: 02-11-2023 End: 02-08-2024 Urate [Mass/volume] in Serum or Plasma URIC ACID BLOOD Lab Routine Megaloblastic anemia due to vitamin B12 deficiency High total serum IgM Elevated sed rate Expected: 02/11/2023 (Approximate), Expires: 02/08/2024 [facility] Work Phone: Comment on above: Expected: 02/11/2023 (Approximate), Expi res: 02/08/2024 Start: 01-22-2023 Influenza vaccination [facility] Start: 12-17-2022 End: 10-23-2023 CBC W Auto Differential panel - Blood CBC + DIFF Lab Routine Megaloblastic anemia due to vitamin B12 deficiency Expected: 12/17/2022 (Approximate), Expires: 10/23/2023 [facility] Work Phone: Comment on above: Expected: 12/17/2022 (Approximate), Expi res: 10/23/2023 Start: 12-17-2022 End: 10-23-2023 Cobalamin (Vitamin B12) [Mass/volume] in Serum or Plasma VITAMIN B12 BLOOD Lab Routine Megaloblastic anemia due to vitamin B12 deficiency Expected: 12/17/2022 (Approximate), Expires: 10/23/2023 [facility] Work Phone: Comment on above: Expected: 12/17/2022 (Approximate), Expi res: 10/23/2023 Start: 12-17-2022 End: 10-23-2023 Comprehensive metabolic 2000 panel - Serum or Plasma COMP METABOLIC PANEL Lab Routine Megaloblastic anemia due to vitamin B12 deficiency Expected: 12/17/2022 (Approximate), Expires: 10/23/2023 [facility] Work Phone: Comment on above: Expected: 12/17/2022 (Approximate), Expi res: 10/23/2023 Start: 12-17-2022 End: 10-23-2023 Ferritin [Mass/volume] in Serum or Plasma FERRITIN BLD Lab Routine Megaloblastic anemia due to vitamin B12 deficiency Expected: 12/17/2022 (Approximate), Expires: 10/23/2023 [facility] Work Phone: Comment on above: Expected: 12/17/2022 (Approximate), Expi res: 10/23/2023 Start: 12-17-2022 End: 10-23-2023 Folate [Mass/volume] in Serum or Plasma FOLATE SERUM Lab Routine Megaloblastic anemia due to vitamin B12 deficiency Expected: 12/17/2022 (Approximate), Expires: 10/23/2023 [facility] Work Phone: Comment on above: Expected: 12/17/2022 (Approximate), Expi res: 10/23/2023 Start: 12-17-2022 End: 10-23-2023 Iron and Iron binding capacity panel - Serum or Plasma IRON + TIBC Lab Routine Megaloblastic anemia due to vitamin B12 deficiency Expected: 12/17/2022 (Approximate), Expires: 10/23/2023 [facility] Work Phone: Comment on above: Expected: 12/17/2022 (Approximate), Expi res: 10/23/2023 Start: 10-23-2022 End: 12-23-2022 25-hydroxyvitamin D3 [Mass/volume] in Serum or Plasma VITAMIN D 25 HYDROXY Lab Routine Megaloblastic anemia due to vitamin B12 deficiency Elevated sed rate High total serum IgM Chronic fatigue and malaise JOSE RAFAEL (obstructive sleep apnea) Expected: 10/23/2022, Expires: 12/23/2022 [facility] Work Phone: Comment on above: Expected: 10/23/2022, Expires: Start: 10-23-2022 End: 12-23-2022 C reactive protein [Mass/volume] in Serum or Plasma C-REACTIVE PROTEIN (CRP) Lab Routine Megaloblastic anemia due to vitamin B12 deficiency Elevated sed rate High total serum IgM Chronic fatigue and malaise JOSE RAFAEL (obstructive sleep apnea) Expected: 10/23/2022, Expires: 12/23/2022 [facility] Work Phone: Comment on above: Expected: 10/23/2022, Expires: Start: 10-23-2022 End: 12-23-2022 CBC W Auto Differential panel - Blood CBC + DIFF Lab Routine Megaloblastic anemia due to vitamin B12 deficiency Elevated sed rate High total serum IgM Chronic fatigue and malaise JOSE RAFAEL (obstructive sleep apnea) Expected: 10/23/2022, Expires: 12/23/2022 [facility] Work Phone: Comment on above: Expected: 10/23/2022, Expires: Start: 10-23-2022 End: 12-23-2022 Cobalamin (Vitamin B12) [Mass/volume] in Serum or Plasma VITAMIN B12 BLOOD Lab Routine Megaloblastic anemia due to vitamin B12 deficiency Elevated sed rate High total serum IgM Chronic fatigue and malaise JOSE RAFAEL (obstructive sleep apnea) Expected: 10/23/2022, Expires: 12/23/2022 [facility] Work Phone: Comment on above: Expected: 10/23/2022, Expires: Start: 10-23-2022 End: 12-23-2022 Comprehensive metabolic 2000 panel - Serum or Plasma COMP METABOLIC PANEL Lab Routine Megaloblastic anemia due to vitamin B12 deficiency Elevated sed rate High total serum IgM Chronic fatigue and malaise JOSE RAFAEL (obstructive sleep apnea) Expected: 10/23/2022, Expires: 12/23/2022 [facility] Work Phone: Comment on above: Expected: 10/23/2022, Expires: 3 Start: 10-23-2022 End: 12-23-2022 Erythrocyte sedimentation rate SED RATE WESTERGREN Lab Routine Megaloblastic anemia due to vitamin B12 deficiency Elevated sed rate High total serum IgM Chronic fatigue and malaise JOSE RAFAEL (obstructive sleep apnea) Expected: 10/23/2022, Expires: 12/23/2022 [facility] Work Phone: Comment on above: Expected: 10/23/2022, Expires: Start: 10-23-2022 End: 12-23-2022 Lactate dehydrogenase [Enzymatic activity/volume] in Serum or Plasma LD LACTATE DEHYDRO Lab Routine Megaloblastic anemia due to vitamin B12 deficiency Elevated sed rate High total serum IgM Chronic fatigue and malaise JOSE RAFAEL (obstructive sleep apnea) Expected: 10/23/2022, Expires: 12/23/2022 [facility] Work Phone: Comment on above: Expected: 10/23/2022, Expires: Start: 10-23-2022 End: 12-23-2022 MONOCLONAL PROTEIN, SERUM (BLOOD) MONOCLONAL PROTEIN, SERUM (BLOOD) Lab Routine Megaloblastic anemia due to vitamin B12 deficiency Elevated sed rate High total serum IgM Chronic fatigue and malaise JOSE RAFAEL (obstructive sleep apnea) Expected: 10/23/2022, Expires: 12/23/2022 [facility] Work Phone: Comment on above: Expected: 10/23/2022, Expires: Start: 10-23-2022 End: 12-23-2022 PROT ELECT SERUM WITH DANA AND INTERP PROT ELECT SERUM WITH DANA AND INTERP Lab Routine Megaloblastic anemia due to vitamin B12 deficiency Elevated sed rate High total serum IgM Chronic fatigue and malaise JOSE RAFAEL (obstructive sleep apnea) Expected: 10/23/2022, Expires: 12/23/2022 [facility] Work Phone: Comment on above: Expected: 10/23/2022, Expires: 3 Start: 09-19-2022 End: 08-20-2023 CBC panel - Blood by Automated count CBC Lab Routine Anemia of chronic disease Expected: 09/19/2022 (Approximate), Expires: 08/20/2023 [facility] Work Phone: Comment on above: Expected: 09/19/2022 (Approximate), Expi res: 08/20/2023 Start: 09-19-2022 End: 08-20-2023 Comprehensive metabolic 2000 panel - Serum or Plasma COMP METABOLIC PANEL Lab Routine Elevated LFTs Expected: 09/19/2022 (Approximate), Expires: 08/20/2023 [facility] Work Phone: Comment on above: Expected: 09/19/2022 (Approximate), Expi res: 08/20/2023 Start: 09-19-2022 End: 11-19-2022 TPMT PHENOTYPE/ENZYME ACTIVITY TPMT PHENOTYPE/ENZYME ACTIVITY Lab Routine 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 Expected: 09/19/2022 (Approximate), Expires: 11/19/2022 [facility] Work Phone: Comment on above: Expected: 09/19/2022 (Approximate), Expi res: 11/19/2022 Start: 08-28-2022 End: 10-28-2022 25-hydroxyvitamin D3 [Mass/volume] in Serum or Plasma VITAMIN D 25 HYDROXY Lab Routine Megaloblastic anemia due to vitamin B12 deficiency Elevated sed rate High total serum IgM Chronic fatigue and malaise Expected: 08/28/2022 (Approximate), Expires: 10/28/2022 [facility] Work Phone: Comment on above: Expected: 08/28/2022 (Approximate), Expi res: 10/28/2022 Start: 08-28-2022 End: 07-26-2023 [id number] [Mass/volume] in Serum or Plasma B2 MICROGLOBULIN B Lab Routine Megaloblastic anemia due to vitamin B12 deficiency Elevated sed rate High total serum IgM Chronic fatigue and malaise Expected: 08/28/2022 (Approximate), Expires: 07/26/2023 [facility] Work Phone: Comment on above: Expected: 08/28/2022 (Approximate), Expi res: 07/26/2023 Start: 08-28-2022 End: 10-28-2022 C reactive protein [Mass/volume] in Serum or Plasma C-REACTIVE PROTEIN (CRP) Lab Routine Megaloblastic anemia due to vitamin B12 deficiency Elevated sed rate High total serum IgM Chronic fatigue and malaise Expected: 08/28/2022 (Approximate), Expires: 10/28/2022 [facility] Work Phone: Comment on above: Expected: 08/28/2022 (Approximate), Expi res: 10/28/2022 Start: 08-28-2022 End: 07-26-2023 Calcium.ionized [Moles/volume] in Blood CALCIUM IONIZED BLOOD Lab Routine Megaloblastic anemia due to vitamin B12 deficiency Elevated sed rate High total serum IgM Chronic fatigue and malaise Expected: 08/28/2022 (Approximate), Expires: 07/26/2023 [facility] Work Phone: Comment on above: Expected: 08/28/2022 (Approximate), Expi res: 07/26/2023 Start: 08-28-2022 End: 07-26-2023 CBC W Auto Differential panel - Blood CBC + DIFF Lab Routine Megaloblastic anemia due to vitamin B12 deficiency Elevated sed rate High total serum IgM Chronic fatigue and malaise Expected: 08/28/2022 (Approximate), Expires: 07/26/2023 [facility] Work Phone: Comment on above: Expected: 08/28/2022 (Approximate), Expi res: 07/26/2023 Start: 08-28-2022 End: 10-28-2022 Cobalamin (Vitamin B12) [Mass/volume] in Serum or Plasma VITAMIN B12 BLOOD Lab Routine Megaloblastic anemia due to vitamin B12 deficiency Elevated sed rate High total serum IgM Chronic fatigue and malaise Expected: 08/28/2022 (Approximate), Expires: 10/28/2022 [facility] Work Phone: Comment on above: Expected: 08/28/2022 (Approximate), Expi res: 10/28/2022 Start: 08-28-2022 End: 07-26-2023 Comprehensive metabolic 2000 panel - Serum or Plasma COMP METABOLIC PANEL Lab Routine Megaloblastic anemia due to vitamin B12 deficiency Elevated sed rate High total serum IgM Chronic fatigue and malaise Expected: 08/28/2022 (Approximate), Expires: 07/26/2023 [facility] Work Phone: Comment on above: Expected: 08/28/2022 (Approximate), Expi res: 07/26/2023 Start: 08-28-2022 End: 10-28-2022 Erythrocyte sedimentation rate SED RATE WESTERGREN Lab Routine Megaloblastic anemia due to vitamin B12 deficiency Elevated sed rate High total serum IgM Chronic fatigue and malaise Expected: 08/28/2022 (Approximate), Expires: 10/28/2022 [facility] Work Phone: Comment on above: Expected: 08/28/2022 (Approximate), Expi res: 10/28/2022 Start: 08-28-2022 End: 10-28-2022 KAPPA/FARMER,FREE,SER KAPPA/FARMER,FREE,SER Lab Routine Megaloblastic anemia due to vitamin B12 deficiency Elevated sed rate High total serum IgM Chronic fatigue and malaise Expected: 08/28/2022 (Approximate), Expires: 10/28/2022 [facility] Work Phone: Comment on above: Expected: 08/28/2022 (Approximate), Expi res: 10/28/2022 Start: 08-28-2022 End: 07-26-2023 Lactate dehydrogenase [Enzymatic activity/volume] in Serum or Plasma LD LACTATE DEHYDRO Lab Routine Megaloblastic anemia due to vitamin B12 deficiency Elevated sed rate High total serum IgM Chronic fatigue and malaise Expected: 08/28/2022 (Approximate), Expires: 07/26/2023 [facility] Work Phone: Comment on above: Expected: 08/28/2022 (Approximate), Expi res: 07/26/2023 Start: 08-28-2022 End: 07-26-2023 MONOCLONAL PROTEIN, SERUM (BLOOD) MONOCLONAL PROTEIN, SERUM (BLOOD) Lab Routine Megaloblastic anemia due to vitamin B12 deficiency Elevated sed rate High total serum IgM Chronic fatigue and malaise Expected: 08/28/2022 (Approximate), Expires: 07/26/2023 [facility] Work Phone: Comment on above: Expected: 08/28/2022 (Approximate), Expi res: 07/26/2023 Start: 08-28-2022 End: 07-26-2023 Phosphate [Mass/volume] in Serum or Plasma PHOSPHORUS INORGANIC Lab Routine Megaloblastic anemia due to vitamin B12 deficiency Elevated sed rate High total serum IgM Chronic fatigue and malaise Expected: 08/28/2022 (Approximate), Expires: 07/26/2023 [facility] Work Phone: Comment on above: Expected: 08/28/2022 (Approximate), Expi res: 07/26/2023 Start: 08-28-2022 End: 07-26-2023 PROTEIN ELECTROPHORESIS SERUM W/INTERP PROTEIN ELECTROPHORESIS SERUM W/INTERP Lab Routine Megaloblastic anemia due to vitamin B12 deficiency Elevated sed rate High total serum IgM Chronic fatigue and malaise Expected: 08/28/2022 (Approximate), Expires: 07/26/2023 [facility] Work Phone: Comment on above: Expected: 08/28/2022 (Approximate), Expi res: 07/26/2023 Start: 08-28-2022 End: 07-26-2023 Urate [Mass/volume] in Serum or Plasma URIC ACID BLOOD Lab Routine Megaloblastic anemia due to vitamin B12 deficiency Elevated sed rate High total serum IgM Chronic fatigue and malaise Expected: 08/28/2022 (Approximate), Expires: 07/26/2023 [facility] Work Phone: Comment on above: Expected: 08/28/2022 (Approximate), Expi res: 07/26/2023 Start: 07-15-2022 End: 05-20-2023 [id number] [Mass/volume] in Serum or Plasma B2 MICROGLOBULIN B Lab Routine High total serum IgM Expected: 07/15/2022 (Approximate), Expires: 05/20/2023 [facility] Work Phone: Comment on above: Expected: 07/15/2022 (Approximate), Expi res: 05/20/2023 Start: 07-15-2022 End: 05-20-2023 Calcium.ionized [Moles/volume] in Blood CALCIUM IONIZED BLOOD Lab Routine High total serum IgM Expected: 07/15/2022 (Approximate), Expires: 05/20/2023 [facility] Work Phone: Comment on above: Expected: 07/15/2022 (Approximate), Expi res: 05/20/2023 Start: 07-15-2022 End: 05-20-2023 CBC W Auto Differential panel - Blood CBC + DIFF Lab Routine High total serum IgM Expected: 07/15/2022 (Approximate), Expires: 05/20/2023 [facility] Work Phone: Comment on above: Expected: 07/15/2022 (Approximate), Expi res: 05/20/2023 Start: 07-15-2022 End: 05-20-2023 Comprehensive metabolic 2000 panel - Serum or Plasma COMP METABOLIC PANEL Lab Routine High total serum IgM Expected: 07/15/2022 (Approximate), Expires: 05/20/2023 [facility] Work Phone: Comment on above: Expected: 07/15/2022 (Approximate), Expi res: 05/20/2023 Start: 07-15-2022 End: 09-14-2022 KAPPA/FARMER,FREE,SER KAPPA/FARMER,FREE,SER Lab Routine High total serum IgM Expected: 07/15/2022 (Approximate), Expires: 09/14/2022 [facility] Work Phone: Comment on above: Expected: 07/15/2022 (Approximate), Expi res: 09/14/2022 Start: 07-15-2022 End: 05-20-2023 Lactate dehydrogenase [Enzymatic activity/volume] in Serum or Plasma LD LACTATE DEHYDRO Lab Routine High total serum IgM Expected: 07/15/2022 (Approximate), Expires: 05/20/2023 [facility] Work Phone: Comment on above: Expected: 07/15/2022 (Approximate), Expi res: 05/20/2023 Start: 07-15-2022 End: 05-20-2023 MONOCLONAL PROTEIN, SERUM (BLOOD) MONOCLONAL PROTEIN, SERUM (BLOOD) Lab Routine High total serum IgM Expected: 07/15/2022 (Approximate), Expires: 05/20/2023 [facility] Work Phone: Comment on above: Expected: 07/15/2022 (Approximate), Expi res: 05/20/2023 Start: 07-15-2022 End: 05-20-2023 Phosphate [Mass/volume] in Serum or Plasma PHOSPHORUS INORGANIC Lab Routine High total serum IgM Expected: 07/15/2022 (Approximate), Expires: 05/20/2023 [facility] Work Phone: Comment on above: Expected: 07/15/2022 (Approximate), Expi res: 05/20/2023 Start: 07-15-2022 End: 05-20-2023 PROTEIN ELECTROPHORESIS SERUM W/INTERP PROTEIN ELECTROPHORESIS SERUM W/INTERP Lab Routine High total serum IgM Expected: 07/15/2022 (Approximate), Expires: 05/20/2023 [facility] Work Phone: Comment on above: Expected: 07/15/2022 (Approximate), Expi res: 05/20/2023 Start: 07-15-2022 End: 05-20-2023 Urate [Mass/volume] in Serum or Plasma URIC ACID BLOOD Lab Routine High total serum IgM Expected: 07/15/2022 (Approximate), Expires: 05/20/2023 [facility] Work Phone: Comment on above: Expected: 07/15/2022 (Approximate), Expi res: 05/20/2023 Start: 06-05-2022 End: 03-05-2023 25-hydroxyvitamin D3 [Mass/volume] in Serum or Plasma VITAMIN D 25 HYDROXY Lab Routine Vitamin D deficiency Expected: 06/05/2022 (Approximate), Expires: 03/05/2023 [facility] Work Phone: Comment on above: Expected: 06/05/2022 (Approximate), Expi res: 03/05/2023 Start: 06-05-2022 End: 03-05-2023 C reactive protein [Mass/volume] in Serum or Plasma C-REACTIVE PROTEIN (CRP) Lab Routine Elevated sed rate Elevated C-reactive protein (CRP) Expected: 06/05/2022 (Approximate), Expires: 03/05/2023 [facility] Work Phone: Comment on above: Expected: 06/05/2022 (Approximate), Expi res: 03/05/2023 Start: 06-05-2022 End: 03-05-2023 Cobalamin (Vitamin B12) [Mass/volume] in Serum or Plasma VITAMIN B12 BLOOD Lab Routine Vitamin B12 deficiency Expected: 06/05/2022 (Approximate), Expires: 03/05/2023 [facility] Work Phone: Comment on above: Expected: 06/05/2022 (Approximate), Expi res: 03/05/2023 Start: 06-05-2022 End: 03-05-2023 Erythrocyte sedimentation rate SED RATE WESTERGREN Lab Routine Elevated sed rate Elevated C-reactive protein (CRP) Expected: 06/05/2022 (Approximate), Expires: 03/05/2023 [facility] Work Phone: Comment on above: Expected: 06/05/2022 (Approximate), Expi res: 03/05/2023 Start: 05-06-2022 End: 03-18-2023 [id number] [Mass/volume] in Serum or Plasma B2 MICROGLOBULIN B Lab Routine Megaloblastic anemia due to vitamin B12 deficiency High total serum IgM Expected: 05/06/2022 (Approximate), Expires: 03/18/2023 [facility] Work Phone: Comment on above: Expected: 05/06/2022 (Approximate), Expi res: 03/18/2023 Start: 05-06-2022 End: 03-18-2023 Calcium.ionized [Moles/volume] in Blood CALCIUM IONIZED BLOOD Lab Routine Megaloblastic anemia due to vitamin B12 deficiency High total serum IgM Expected: 05/06/2022 (Approximate), Expires: 03/18/2023 [facility] Work Phone: Comment on above: Expected: 05/06/2022 (Approximate), Expi res: 03/18/2023 Start: 05-06-2022 End: 03-18-2023 CBC W Auto Differential panel - Blood CBC + DIFF Lab Routine Megaloblastic anemia due to vitamin B12 deficiency High total serum IgM Expected: 05/06/2022 (Approximate), Expires: 03/18/2023 [facility] Work Phone: Comment on above: Expected: 05/06/2022 (Approximate), Expi res: 03/18/2023 Start: 05-06-2022 End: 03-18-2023 Comprehensive metabolic 2000 panel - Serum or Plasma COMP METABOLIC PANEL Lab Routine Megaloblastic anemia due to vitamin B12 deficiency High total serum IgM Expected: 05/06/2022 (Approximate), Expires: 03/18/2023 [facility] Work Phone: Comment on above: Expected: 05/06/2022 (Approximate), Expi res: 03/18/2023 Start: 05-06-2022 End: 03-18-2023 Ferritin [Mass/volume] in Serum or Plasma FERRITIN BLD Lab Routine Megaloblastic anemia due to vitamin B12 deficiency High total serum IgM Expected: 05/06/2022 (Approximate), Expires: 03/18/2023 [facility] Work Phone: Comment on above: Expected: 05/06/2022 (Approximate), Expi res: 03/18/2023 Start: 05-06-2022 End: 03-18-2023 Iron and Iron binding capacity panel - Serum or Plasma IRON + TIBC Lab Routine Megaloblastic anemia due to vitamin B12 deficiency High total serum IgM Expected: 05/06/2022 (Approximate), Expires: 03/18/2023 [facility] Work Phone: Comment on above: Expected: 05/06/2022 (Approximate), Expi res: 03/18/2023 Start: 05-06-2022 End: 03-18-2023 Lactate dehydrogenase [Enzymatic activity/volume] in Serum or Plasma LD LACTATE DEHYDRO Lab Routine Megaloblastic anemia due to vitamin B12 deficiency High total serum IgM Expected: 05/06/2022 (Approximate), Expires: 03/18/2023 [facility] Work Phone: Comment on above: Expected: 05/06/2022 (Approximate), Expi res: 03/18/2023 Start: 05-06-2022 End: 03-18-2023 MONOCLONAL PROTEIN, SERUM (BLOOD) MONOCLONAL PROTEIN, SERUM (BLOOD) Lab Routine Megaloblastic anemia due to vitamin B12 deficiency High total serum IgM Expected: 05/06/2022 (Approximate), Expires: 03/18/2023 [facility] Work Phone: Comment on above: Expected: 05/06/2022 (Approximate), Expi res: 03/18/2023 Start: 05-06-2022 End: 03-18-2023 Phosphate [Mass/volume] in Serum or Plasma PHOSPHORUS INORGANIC Lab Routine Megaloblastic anemia due to vitamin B12 deficiency High total serum IgM Expected: 05/06/2022 (Approximate), Expires: 03/18/2023 [facility] Work Phone: Comment on above: Expected: 05/06/2022 (Approximate), Expi res: 03/18/2023 Start: 05-06-2022 End: 03-18-2023 PROTEIN ELECTROPHORESIS SERUM W/INTERP PROTEIN ELECTROPHORESIS SERUM W/INTERP Lab Routine Megaloblastic anemia due to vitamin B12 deficiency High total serum IgM Expected: 05/06/2022 (Approximate), Expires: 03/18/2023 [facility] Work Phone: Comment on above: Expected: 05/06/2022 (Approximate), Expi res: 03/18/2023 Start: 05-06-2022 End: 03-18-2023 Urate [Mass/volume] in Serum or Plasma URIC ACID BLOOD Lab Routine Megaloblastic anemia due to vitamin B12 deficiency High total serum IgM Expected: 05/06/2022 (Approximate), Expires: 03/18/2023 [facility] Work Phone: Comment on above: Expected: 05/06/2022 (Approximate), Expi res: 03/18/2023 Start: 04-05-2022 COVID-19 VACCINE (5 - Pfizer risk series) COVID-19 VACCINE (5 - Pfizer risk series) [facility] Start: 03-09-2022 End: 05-09-2022 Hemoglobin A1c in Blood HGB A1C Lab Routine Elevated glucose Expected: 03/09/2022, Expires: 05/09/2022 [facility] Work Phone: Comment on above: Expected: 03/09/2022, Expires: 2 Start: 02-24-2022 End: 04-26-2022 BARTONELLA AB PANEL BARTONELLA AB PANEL Lab Routine Swelling of lymph nodes Expected: 02/24/2022, Expires: 04/26/2022 [facility] Work Phone: Comment on above: Expected: 02/24/2022, Expires: 2 Start: 02-24-2022 End: 04-26-2022 BRUCELLA AB TOTAL BRUCELLA AB TOTAL Lab Routine Swelling of lymph nodes Expected: 02/24/2022, Expires: 04/26/2022 [facility] Work Phone: Comment on above: Expected: 02/24/2022, Expires: 2 Start: 02-24-2022 End: 04-26-2022 Cryptococcus sp Ag [Presence] in Unspecified specimen by Latex agglutination CRYPTOCOCCUS AG DET Microbiology Routine Swelling of lymph nodes Expected: 02/24/2022, Expires: 04/26/2022 [facility] Work Phone: Comment on above: Expected: 02/24/2022, Expires: 2 Start: 02-24-2022 End: 04-26-2022 HISTOPLASMA AG URINE HISTOPLASMA AG URINE Lab Routine Swelling of lymph nodes Expected: 02/24/2022, Expires: 04/26/2022 [facility] Work Phone: Comment on above: Expected: 02/24/2022, Expires: 2 Start: 02-24-2022 End: 04-26-2022 HIV 1 RNA [#/volume] (viral load) in Serum or Plasma by YESSI with probe detection HIV RNA VIRAL LOAD Lab Routine Swelling of lymph nodes Expected: 02/24/2022, Expires: 04/26/2022 [facility] Work Phone: Comment on above: Expected: 02/24/2022, Expires: 2 Start: 02-24-2022 End: 04-26-2022 SYPHILIS TOTAL W/REFLEX SYPHILIS TOTAL W/REFLEX Lab Routine Swelling of lymph nodes Expected: 02/24/2022, Expires: 04/26/2022 [facility] Work Phone: Comment on above: Expected: 02/24/2022, Expires: Start: 01-22-2022 Influenza vaccination [facility] Start: 08-24-2021 COVID-19 VACCINE (4 - Booster for Pfizer series) COVID-19 VACCINE (4 - Booster for Pfizer series) [facility] Start: 01-22-2021 Influenza vaccination Flu vaccine (Season Ended) [facility] Work Phone: Start: 2020 Lipid panel Lipid screen [facility] Work Phone: Start: 2020 Mammography [facility] Start: 2020 Screening for malignant neoplasm of breast [facility] Start: 2010 HPV TESTING HPV TESTING [facility] Start: 2010 Screening for malignant neoplasm of cervix [facility] Start: 10-05-2007 HPV Vaccine (1 - Risk 3-dose SCDM series) HPV Vaccine (1 - Risk 3-dose SCDM series) [facility] Start: 2002 DTaP/Tdap/Td Vaccines (1 - Tdap) DTaP/Tdap/Td Vaccines (1 - Tdap) [facility] Start: 2001 PAP TESTING PAP TESTING [facility] Start: 2001 Screening for malignant neoplasm of cervix [facility] Start: 10-05-1999 DTaP,Tdap and Td Vaccines (1 - Tdap) DTaP,Tdap and Td Vaccines (1 - Tdap) [facility] Start: 10-05-1999 DTaP/Tdap/Td vaccine (1 - Tdap) DTaP/Tdap/Td vaccine (1 - Tdap) [facility] Work Phone: Start: 10-05-1999 Hepatitis B Vaccine (1 of 3 - 19+ 3-dose series) Hepatitis B Vaccine (1 of 3 - 19+ 3-dose series) [facility] Start: 10-05-1999 Hepatitis B Vaccines (1 of 3 - 19+ 3-dose series) Hepatitis B Vaccines (1 of 3 - 19+ 3-dose series) [facility] Start: 10-05-1999 Pneumococcal vaccination Pneumococcal Vaccine (1 of 2 - PCV) [facility] Start: 10-05-1999 Pneumococcal Vaccine: Pediatrics and At-Risk Adult Patients (1 of 2 - PCV) Pneumococcal Vaccine: Pediatrics and At-Risk Adult Patients (1 of 2 - PCV) [facility] Start: 10-05-1999 SHINGRIX VACCINE (1 of 2) [facility]ACC[facility] 2) [facility] Start: 10-05-1999 Urine microalbumin profile [facility] Start: 10-05-1999 Zoster Vaccines (1 of 2) Zoster Vaccines (1 of 2) [facility] Start: 1998 Adult BMI Follow Up Plan Adult BMI Follow Up Plan [facility] Start: 1998 Adult BMI Screening Adult BMI Screening [facility] Start: 1998 Anxiety Screening Anxiety Screening [facility] Start: 1998 Hepatitis C screening Hepatitis C Screening [facility] Start: 1998 HIV SCREENING HIV SCREENING [facility] Start: 1998 HIV screening HIV Screening [facility] Start: 10-05-1995 HIV screening HIV screen [facility] Phone: Start: 1993 Varicella vaccination Varicella Vaccines (1 of 2 - 13+ 2-dose series) [facility] Start: 1992 COVID-19 Vaccine (1) COVID-19 Vaccine (1) [facility] Phone: Start: 1992 Depression Screening Depression Screening [facility] Start: 1992 Tobacco Screening Tobacco Screening [facility] Start: 10-05-1991 Screening for malignant neoplasm of cervix Cervical Cancer Screening [facility] Start: 1986 PNEUMOCOCCAL (1 - PCV) PNEUMOCOCCAL (1 - PCV) [facility] Start: 1986 Pneumococcal vaccination [facility] Start: 1986 Pneumococcal Vaccine: Pediatrics (0 to 5 Years) and At-Risk Patients (6 to 64 Years) (1 - PCV) Pneumococcal Vaccine: Pediatrics (0 to 5 Years) and At-Risk Patients (6 to 64 Years) (1 - PCV) [facility] Start: 1981 MMR Vaccines (1 of 1 - Standard series) MMR Vaccines (1 of 1 - Standard series) [facility] Start: 1981 Varicella vaccination Varicella Vaccines (1 of 2 - 2-dose childhood series) [facility] Start: 1981 Varicella vaccine (1 of 2 - 2-dose childhood series) Varicella vaccine (1 of 2 - 2-dose childhood series) [email or web address] Start: 1980 HEPATITIS B (1 of 3 - 3-dose series) HEPATITIS B (1 of 3 - 3-dose series) [facility] Start: 1980 Hepatitis B Vaccine (1 of 3 - 3-dose series) Hepatitis B Vaccine (1 of 3 - 3-dose series) [facility] Start: 1980 Hepatitis B Vaccines (1 of 3 - 3-dose series) Hepatitis B Vaccines (1 of 3 - 3-dose series) [facility] Start: 1980 Hepatitis C screening Hepatitis C screen [email or web address]: Start: 1980 HIV screening HIV Screening [facility] Start: 1980 HPV Vaccine: Recommended Based On Risk HPV Vaccine: Recommended Based On Risk [facility] Start: 1980 Lipid panel Lipid Panel [facility] Start: 1980 Screening for osteoporosis Bone Density Scan [facility] Start: 1980 Tobacco Counseling Tobacco Counseling [facility] Start: 1980 Yearly Adult Physical Yearly Adult Physical [facility] 25-hydroxyvitamin D3 [Mass/volume] in Serum or Plasma VITAMIN D 25 HYDROXY Lab Routine Vitamin D deficiency 01/11/2025 1:48 PM EDT [facility] AEROBIC CULTURE AEROBIC CULTURE Lab Routine 03/02/2025 5:17 PM EDT [facility] Work Phone: ANAEROBIC CULTURE ANAEROBIC CULT URE Lab Routine 03/02/2025 5:17 PM EDT [facility] Bacteria identified in Unspecified specimen by Aerobe culture [facility] Bacteria identified in Unspecified specimen by Anaerobe culture [facility] BLOOD TB SCREEN BLOOD TB SCREEN Lab Routine Screening-pulmonary TB 01/11/2025 1:48 PM EDT [facility] C reactive protein [Mass/volume] in Serum or Plasma C-REACTIVE PROTEIN Lab Routine Elevated sed rate Elevated C-reactive protein (CRP) 01/11/2025 1:48 PM EDT [facility] Cardiovascular funct ion eval w/tilt table w/mntr TILT TABLE EVALUATION Cardiology Routine POTS (postural orthostatic tachycardia syndrome) Ordered: 03/09/2022 [facility] Work Phone: Comment on above: Ordered: 03/09/2022 CBC W Auto Different ial panel - Blood CBC and differential Lab Routine Menorrhagia with regular cycle Ordered: 03/23/2024 [facility] Work Phone: Comment on above: Ordered: 03/23/2024 Chronic hepatitis differentiation between hepatitis B and C virus panel - Serum or Plasma HEP REMOTE PANEL BL Lab Routine Elevated LFTs 01/11/2025 1:48 PM EDT [facility] Cobalamin (Vitamin B 12) [Mass/volume] in Serum or Plasma VITAMIN B12 Lab Routine Vitamin B12 deficiency 01/11/2025 1:48 PM EDT [facility] CT Abdomen W contrast IV [facility] End: 03-05-2024 DXA-AXIAL SKELETON DXA-AXIAL SKELETON Radiology Routine Steroid-induced osteoporosis 1 Occurrences starting 02/04/2023 until 03/05/2024 [facility] Work Phone: Comment on above: 1 Occurrences starting 02/04/2023 until 03/05/2024 End: 03-05-2024 DXA-FOREARM SKELETON DXA-FOREARM SKELETON Radiology Routine Steroid-induced osteoporosis 1 Occurrences starting 02/04/2023 until 03/05/2024 [facility] Work Phone: Comment on above: 1 Occurrences starting 02/04/2023 until 03/05/2024 ECG 12 Lead ECG 12 Lead ECG Routine Irregular heart rate 06/09/2023 8:28 AM EST [facility] Work Phone: Erythrocyte sediment ation rate SEDIMENTATION RATE, WESTERGREN Lab Routine Elevated sed rate Elevated C-reactive protein (CRP) 01/11/2025 1:48 PM EDT [facility] Work Phone: hCG, quantitative, hCG, quantitative, Lab Routine Menorrhagia with regular cycle Ordered: 03/23/2024 [facility] Comment on above: Ordered: 03/23/2024 Hemoglobin A1c/Hemoglobin.total in Blood Hemoglobin A1c Lab Routine Menorrhagia with regular cycle Ordered: 03/23/2024 [facility] Comment on above: Ordered: 03/23/2024 Hepatitis B virus co re Ab [Presence] in Serum HEPATITIS B CORE ANTIBODY TOTAL Lab Routine Elevated LFTs 01/11/2025 1:48 PM EDT [facility] Hepatitis B virus galarza rface Ab [Presence] in Serum HEPATITIS B SURFACE ANTIBODY Lab Routine Elevated LFTs 01/11/2025 1:48 PM EDT [facility] Hepatitis B virus galarza rface Ag [Presence] in Serum HEPATITIS B SURFACE ANTIGEN Lab Routine Elevated LFTs 01/11/2025 1:48 PM EDT [facility] Hepatitis C virus Ab [Presence] in Serum HEPATITIS C ANTIBODY IA WITH CONFIRMATION Lab Routine Elevated LFTs 01/11/2025 1:48 PM EDT [facility] End: 03-09-2023 HOME SLEEP APNEA TEST (HSAT) HOME SLEEP APNEA TEST (HSAT) Procedures Routine Somnolence, daytime Snoring 1 Occurrences starting 03/09/2022 until 03/09/2023 [facility] Work Phone: Comment on above: 1 Occurrences starting 03/09/2022 until 03/09/2023 HYDROGEN BREATH TEST B/O HYDROGE N BREATH TEST B/O Procedures Routine Diarrhea, unspecified type Abdominal pressure Ordered: 06/14/2024 [facility] Work Phone: Comment on above: Ordered: 06/14/2024 Oxygen therapy [[facility] Data Set] Initiate Oxygen Therapy Protocol Respiratory Care Routine Daily until discontinued starting 10/07/2020 [facility] Work Phone: Comment on above: Daily until discontinued starting 2020 Patient Education [facility] Work Phone: Patient referral [facility] Work Phone: End: 03-04-2023 Polysomnogram POLYSOMNOGRAM (PSG) Procedures Routine Somnolence, daytime Snoring 1 Occurrences starting 03/04/2022 until 03/04/2023 [facility] Work Phone: Comment on above: 1 Occurrences starting 03/04/2022 until 03/04/2023 Prothrombin time (PT ) in Blood by Coagulation assay Protime-INR Lab Routine Menorrhagia with regular cycle Ordered: 03/23/2024 [facility] Comment on above: Ordered: 03/23/2024 THIN PREP TIS PAP AN D HR HPV DNA THIN PREP TIS PAP AND HR HPV DNA Pathology and Cytology Routine Well woman exam with routine gynecological exam Ordered: 06/06/2024 [facility] Comment on above: Ordered: 06/06/2024 Thyrotropin [Units/v olume] in Serum or Plasma TSH Lab Routine Menorrhagia with regular cycle Ordered: 03/23/2024 [facility] Comment on above: Ordered: 03/23/2024 Thyroxine (T4) free [Mass/volume] in Serum or Plasma T4, free Lab Routine Menorrhagia with regular cycle Ordered: 03/23/2024 [facility] Comment on above: Ordered: 03/23/2024 XR Thoracic spine 3 Views [facility] Immunizations Immunization Date Immunization Notes Care Provider Reginaldo [email or web address] 02-23-2023 COVID-19 vaccine, ag e 12+ yr, 2022- season (PFIZER-BIONTVUELOGIC) Lynne Ni MD Work Phone: [facility] 02-08-2022 COVID-19 mRNA Bivale nt Booster (Pfizer) Gay Enciso [employer] Work Phone: [facility] 05-26-2021 COVID-19 mRNA, Comirnaty (Pfizer) Gay Enciso [employer] Work Phone: [facility] 10-19-2020 COVID-19 mRNA, Comirnaty (Pfizer) Gay Enciso [employer]PER[employer] Work Phone: [facility] 09-28-2020 COVID-19 mRNA, Comirnaty (Pfizer) Gay Enciso [employer]PER[employer] Work Phone: [facility] Payers Date Payer Category Payer Self-pay [id number] 2024 Medicaid HMO [employer] [id number] 2017 Medicaid (Managed Care) [employer] [id number] 2017 [facility] Health [facility] [id number] 2017 Unknown [employer] [id number] 2017-Present [address] [place] [address] [id number] 2009 Medicaid [employer] [id number] 2009-Present [phone] [address] [place] [address] Medicaid [id number] 2009 Medicaid [id number] 1980 Unknown [id number] 2.16.840.1.474527.3.579.2. 185 1980 Unknown [id number] 2.16.840.1.644270.3.579.2. 175 1980 Unknown [id number] 2.16.840.1.935897.3.579.2. 593 1980 Unknown [id number] 2.16.840.1.649974.3.579.2. 593 1980 Unknown [id number] 2.16.840.1.838478.3.579.2. 593 1980 Unknown [id number] 2.16.840.1.371006.3.579.2. 593 1980 Unknown [id number] 2.16.840.1.142282.3.579.2. 59 1980 Unknown [id number] 2.16.840.1.683100.3.579.2. 59 1980 Unknown [id number] 2.16.840.1.758986.3.579.2. 59 1980 Unknown [id number] 2.16.840.1.510228.3.579.2. 59 1980 Unknown [id number] 2.16.840.1.101013.3.579.2. 1980 Unknown [id number] 2.16.840.1.094342.3.579.2. 1980 Unknown [id number] 2.16.840.1.088185.3.579.2. 124 1980 Unknown [id number] 2.16.840.1.569451.3.579.2. 1243 1980 Unknown [id number] 2.16.840.1.787024.3.579.2. 1258 1980 Unknown [id number] 2.16.840.1.752909.3.579.2. 1258 1980 Unknown [id number] 2.16.840.1.266507.3.579.2. 1258 1980 Unknown [id number] 2.16.840.1.616882.3.579.2. 1258 1980 Unknown [id number] 2.16.840.1.927000.3.579.2. 1258 1980 Unknown [id number] 2.16.840.1.452563.3.579.2. 1258 1980 Unknown [id number] 2.16.840.1.922928.3.579.2. 1258 1980 Unknown [id number] 2.16.840.1.435824.3.579.2. 1259 1980 Unknown [id number] 2.16.840.1.509494.3.579.2. 1259 1980 Unknown [id number] 2.16.840.1.705116.3.579.2. 1259 1980 Unknown [id number] 2.16.840.1.012412.3.579.2. 1259 1959 Unknown [id number] 1959 Unknown [id number] Unknown [id number] 2.16.840.1.349420.3.579.2. 531 Unknown [id number] 2.16.840.1.878235.3.579.2. 531 Unknown [id number] 2.16.840.1.686192.3.579.2. 531 Unknown [id number] 2.16.840.1.885098.3.579.2. 531 Unknown [id number] 2.16.840.1.711617.3.579.2. 531 Unknown [id number] 2.16.840.1.501570.3.579.2. 531 Social History Date Type Detail Facility Start: 10-07-2020 End: 03-02-2025 Tobacco smoking status [facility] Current every day smoker [facility] Start: 10-07-2020 End: 11-08-2023 Tobacco use and exposure Never used [facility] Start: 10-07-2020 End: 02-28-2025 Alcohol intake Lifetime non-drinker (finding) [facility] Phone: Start: 10-07-2020 History SDOH Alcohol Frequency 1 [facility] Phone: Start: 1980 Sex Assigned At Not on file [facility] Phone: Start: 02-22-2022 End: 07-26-2024 Exposure to SARS-CoV-2 (event) Not sure [facility] Start: 05-24-1995 History of tobacco use Cigarette Smo ker [facility] Start: 05-31-2014 End: 02-28-2025 Cigarettes smoked current (pack per day) - Reported 1 [facility] Start: 10-24-2021 End: 11-29-2024 Alcohol intake Current non-drinker of alcohol (finding) [facility] Start: 10-14-2021 End: 10-24-2021 Exposure to SARS-CoV-2 (event) Unable to assess [facility] Start: 10-22-2022 End: 02-28-2025 Sex Assigned At [facility] Start: 05-31-2014 Adult Depression Screening Assessment 1 [facility] Start: 10-19-2022 Tobacco Comment Current smoker , everyday, 11-20 cigarettes/day [facility] Start: 05-31-2023 Alcohol Comment Caffeine intak e : > 4 cups per day [facility] Start: 08-19-2016 End: 12-16-2023 Tobacco smoking status NHIS Smoker (finding) [facility] Start: 1980 Sex Assigned At Female [facility] Start: 07-02-2016 End: 08-22-2024 Sex Female (finding) [facility] Start: 02-21-2024 Gender identity Identifies as female gender (finding) [facility] Goals Date Patient Goal Desired Activity /State Functional Status Date Assessment Result Facility 12-25-2014 Are you deaf, or do you have serious difficulty hearing No 12/25/2014 11:14 AM Chichi Womack Ma No [facility] 12-25-2014 Are you blind, or do you have serious difficulty seeing, even when wearing glasses No 12/25/2014 11:14 AM Chichi Womack Ma No [facility] 12-25-2014 Do you have serious difficulty walking or climbing stairs Yes 12/25/2014 11:14 AM Chichi Womack Ma Yes [facility] 12-25-2014 Do you have difficul ty dressing or bathing Yes 12/25/2014 11:14 AM Chichi Womack Ma Yes [facility] 12-25-2014 Because of a physica l, [...] 11:14 AM EDT Haroldo Oakley Chichi No [facility] Clinical Notes 05-31-2014 to 02-28-2025 Terence [...] and also on prednisone. She follows with [facility] rheumatology and also with [facility] hematology/oncology. She states she does have [...] Chronic laryngopharyngitis COVID-19 vaccine administered x 2 ([place]) Difficulty walking Fatigue Fibromyalgia, primary GERD (gastroesophageal [...] dressing changes at documented in this encounter [facility] 02-21-2025 Note [facility] 02-21-2025 [facility] 02-14-2025 History of Present illness Narrative Follow [...] Visit: as scheduled documented in this encounter [facility] 01-24-2025 Note [facility] 01-24-2025 History of Present illness Narrative Pt did not receive B12 injection today. Pt called & agreeable to receive it when she returns in 2 weeks for her Benlysta infusion. Pharmacy aware and moving date. Elena Alfonso RN documented in this encounter [facility] 01-18-2025 Telephone encounter Note MC message read by patient . [facility] 01-18-2025 Miscellaneous Notes MC message read [...] start prior authorization documented in this encounter [facility] 01-18-2025 Telephone encounter Note Please Call [...] sq benlysta to IV, start prior authorization [facility] 12-14-2024 Note HNO ID: [id number] Author: JHONATHAN VALE RN Service: ? Author Type: Registered Nurse Type: Progress Notes Filed: 12/14/2024 16:36 Note Text: Ran over 2 hours per patient request. [facility] 12-14-2024 History of Present illness Narrative Ran over 2 hours per patient request. 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 [employer] SENDING CMN: Josh SIGNED AND DATED CMN, FAXED TO DME & CONFIRMATION PAGE RECEIVED: 12.14.2024 documented in this encounter [facility] 12-12-2024 Evaluation note Diagnosis Onset Date [...] (gastroesophageal reflux disease) acute February 28 1:29pm [facility] Work Phone: 1(437) 214-526007-10-2025 Evaluation note* Diagnosis Onset Date Resolution Status [...] 2024 9:23am Sacroiliitis acute February 142024 9:23am [facility] Work Phone: 1(714) 351-821207-10-2025 Telephone encounter Note* Telephone Encounter - Enma Hamm RN - 11/30/2024 8:36 AM EDT Pt updated on results. Will continue with IVIG, as previously scheduled. Denied further needs or concerns at this time. Enma Hamm RN [facility]07-10-2025 Miscellaneous Notes* Telephone Encounter - Enma Hamm RN - 11/30/2024 8:36 AM EDT Pt updated on results. Will continue with IVIG, as previously scheduled. Denied further needs or concerns at this time. Enma Hamm RN documented in this encounterMer[facility]07-09-2025 [facility] History of Present illness Narrative* Vaibhav Carvalho APRN.CORK MIXER - 11/29/2024 8:43 AM EDT Images from the original note were not included. NAME: Ariadna Haley [facility] NO.: [id number] DATE OF SERVICE: .November 29, 2024 (Deven) [...] to monitor; no current intervention required per [facility] recommendations. 7. Pre-diabetes (R73.03) Borderline diabetic. [...] requiring a recent corticosteroid injection by her auction clerk. She experiences intermittent fatigue, shortness of breath, [...] lower lip done 2 days ago at [facility] - awaiting results. B12 helps especially [...] injections. 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 She has been told they [...] subcutaneously one time a week. Per PCP ynbcbkuvjvHJZVX-nciisf-abllfbvnu (BMX 1:1:1) 1:1:1 liqd Take 5 mL [...] (Crohn's [Other]) Mother . Vaibhav Carvalho APRN, TOOL AND DIE SUPERVISOR-C, [facility] Provided at: [place], [place] CC: Manuel Ferris MD [address] [address] documented in this encounterMercy [facility]07-03-2025 History of Present illness Narrative* KELVIN [...] treatment with ILK today. ILK today, see [facility] for details. Consent: The risks and benefits of intralesional kenalog were discussed prior to the procedure. Specifically, the risk of skin atrophy was reviewed. It was also emphasized that multiple treatments may be necessary. Verbal consent was obtained from the patient/parent. Method: See [facility] for details on administration. [...] Next Visit: as scheduled documented in this encounterC[id number] Telephone encounter Note* Telephone Encounter - Renea Schneider MA - 11/20/2024 12:00 PM EDT Patient coming in for treatment visit Wednesday11/29/24. Please add lab orders. thanks. Renea Schneider MA [facility]06-23-2025 Chief complaint+Reason for visit Narrative* Chief [...] :29am Sacroiliitis January 17, 2025 10 :29am [facility] Work Phone: 1(660) 553-567206-23-2025 Chief complaint+Reason for visit Narrative * Chief [...] :29am Sacroiliitis January 17, 2025 10 :29am [facility] Work Phone: 1(412) 739-733406-23-2025 Evaluation note* Diagnosis Onset Date Resolution Status [...] 10:29am Sacroiliitis acute January 17, 2025 10:29am [facility] Work Phone: 1(901) 442-989805-17-2025 History of Present illness Narrative* Lynne Ni [...] visit. Either the patient or their legal leasing representative has been informed of the risks [...] easures, may consider osteoporosis treatment if on rat exterminator steroids/abnormal bmd, take vitamin D script once [...] neurology/on metoprolol for POTs, avoid aggravating triggers, snf pain recommendations per primary care provider/pain clinic/patient [...] measures, may consider osteoporosis treatment if on snf steroids/abnormal bmd, take vitamin D script once [...] neurology/on metoprolol for POTs, avoid aggravating triggers, rat exterminator pain recommendations per primary care provider/pain clinic/patient [...] measures, may consider osteoporosis treatment if on snf steroids/abnormal bmd, take vitamin D script if [...] neurology/on metoprolol for POTs, avoid aggravating triggers, snf pain recommendations per primary care provider/pain clinic/patient [...] neurology/on metoprolol for POTs, avoid aggravating triggers, rat exterminator pain recommendations per primary care provider/pain clinic/patient [...] Due for eye exam. Labs [facility] to [facility]/completed in 06/2021 (no results faxed to office, [...] COVID-19 original vaccine, age 12+ yr, monovalent (ExpertFlyer - PURPLE TOP) 09/28/2020 10/19/2020 05/26/2021 COVID-19 vaccine, age 12+ yr (ExpertFlyer COMIRNATY) 02/23/2023 COVID-19 vaccine, age 12+ yr, bivalent (ExpertFlyer) 02/08/2022 Pneumovax no Flu shot no Tetanus [...] (33);NL cbc, cmp, negative hla b27; Outside [place] 06/2021 low vitamin D 16, vitamin b12-307;high [...] ures, may consider osteoporosis treatment if on snf steroids/abnormal bmd, take vitamin D script once [...] neurology/on metoprolol for POTs, avoid aggravating triggers, rat exterminator pain recommendations per primary care provider/pain clinic/patient [...] (200mg) daily with a meal Please see artillery meteorological man every 6-12months while on Hydroxychloroquine. reStart azathioprine [...] touching your toes, sit-ups, using row machine rat exterminator pain recommendations per primary care provider/pain clinic [...] video & audio (virtual) or phone or pvkv-cl-gjct patient care, completing clinical documentation, obtaining and/or [...] Workers' Compensation? No Do you need an torch operator? No [facility] MYCHART ZOOM MESSAGE Question 10/06/2024 [...] Strongly Agree documented in this encounterMer[facility]05-17-2025 Note[facility]05-17-2025 Instructions* Patient Instructions* Lynne Ni MD - [...] (200mg) daily with a meal Please see artillery meteorological man every 6-12months while on Hydroxychloroquine. azathioprine [...] touching your toes, sit-ups, using row machine snf pain recommendations per primary care provider/pain clinic [...] your usual activities immediately. documented in this encounterMercy [facility] Hospital05-16-2025 Telephone encounter Note * Telephone Encounter - Beatriz Sanchez LPN - 10/06/2024 1:46 PM EDT VM left that below message forwarded to her MC. Requested return call if unable to view message. [facility]05-16-2025 Miscellaneous Notes* Telephone Encounter - Beatriz [...] Ni MD documented in this encounterMercy Health [facility] Hospital05-16-2025 Telephone encounter Note * Telephone Encounter [...] above. Please process accordingly. Lynne Ni MD [facility]04-30-2025 [facility]04-30-2025 Note [facility]04-29-2025 History of Present illness Narrative* Deborah Arroyo [...] GENETIC TESTING: None. SOCIAL HISTORY: Lives in [place], [place] with her and daughter. 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 - Partner's ethnicity: not applicable. - No known -Cymraes, Mediterranean, /Comoran, Turkish-Polish/Cajun, or Ashkenazi Religious ancestry unless noted above. - Parental consanguinity: [...] via the connective tissue disorder panel at [facility] for Ariadna's daughter. Follow up [...] greater than 50% of which was spent qcrz-ff-crrs counseling. This plan is being carried out per Dr. Lance's recommendations. Deborah Arroyo MS, [facility] Licensed Genetic Counselor [facility] CC: Dr. Last Lance CC: Ariadna Haley Via [employer] documented in this encounterMercy Health [facility] Hospital04-29-2025 [facility]04-29-2025 [facility]04-29-[facility]25 History of Present illness Narrative* Ny Lance MD - 09/19/2024 7:46 AM EDT Images from the original note were not included. Department of Medical Genetics and Genomics OUTPATIENT NEW VISIT NOTE Recording using Tuloko software for draft documentation of the visit was discussed with the patient/authorized leasing representative; all questions welcomed and answered. Patient/authorized leasing representative agreed to proceed Patient Name: Ariadna [...] has a history of using a palate cleaning crew member. She reports delayed wound healing, possible hyperextensible [...] Gangrene - 02/04/2023 Steroid-Induced Osteoporosis - 02/04/2023 Heating And Refrigeration Inspector Current Use of Systemic Steroids - 02/04/2023 [...] subcutaneously one time a week. Per PCP kpvlbbzdrlNOEXX-qfvcyf-bicdbupre (BMX 1:1:1) 1:1:1 liqd Take 5 mL [...] OF ablation SOCIAL HISTORY: - Lives in [place], [place] with her and daughters. - Highest level of education: High school. 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 Paternal - . - No known -Cymraes, Mediterranean, /Comoran, Ashkenazi Religious, Turkish-Polish/Cajun, or Quaker ancestry unless noted above. - Parental [...] pedigree was collected by Deborah Arroyo MS, [facility] at the patient's separate genetic counseling encounter. The pedigree will be scanned into VPEP. This information was reviewed with thefamily and [...] Management For Physiotherapists by Katarina Reza (Eds.), [facility], 2003, ISBN [phone]; Examination and Treatment of a Patient with [...] symptoms when present, recommending follow-up with a wig comber. 2. Chronic pain syndrome (G89.4) Chronic joint [...] 87 minutes was spent with patient for cfpn-tm-oejh evaluation, discussion of genetic differential diagnoses, management plan, counseling, chart review, documentation and coordination of care. Portions of family history were obtained by Deborah Arroyo MS, [facility], which were reviewed with family and edited as necessary. All questions were answered to the best of my knowledge. Contact information has been provided to the patient. Ny Lance MD Staff Physician Recruiter Department of Medical Genetics and Genomics (DMGG) [facility] Appointments: [facility] CC: Deborah Arroyo MS, [facility] Ariadna Haley (via [employer]) [address] [place] [id number] Lynne Ni MD CC to PCP via fax: Manuel Ferris [address] [place] [id number] documented in this encounterMercy [facility] Hospital04-28-2025 Telephone encounter Note * Telephone Encounter - Lynne Ni MD - 09/18/2024 4:52 PM EDT Notify patient medication sent as requested Thank you. Patient's request for medication is as follows: Requested Prescriptions Pending Prescriptions Disp Refills belimumab (BENLYSTA) 200 mg/mL auto-injector 12 mL 3 Sig: Inject 200mg (1 pen) subcutaneously once weekly Prescription(s) as above. Please process accordingly. Lynne Ni MD [facility]04-28-2025 Miscellaneous Notes* Telephone Encounter - Lynne [...] (1 pen) subcutaneously once weekly Patient prefers: [facility] Thank you! Maria Esther Pichardo, PharmD Clinical Pharmacist, [employer] [facility] ; Pool: [facility] Pool #: [id number] documented in this encounterMercy Health [facility] Hospital04-28-2025 Telephone encounter Note * Telephone Encounter - Macarena Sanchez - 09/18/2024 4:03 PM EDT Patient will be calling to reschedule her IV IG and benlysta. She needs to find a biofuels product development manager and will call back with the dates that she will be available. [facility]04-28-2025 Miscellaneous Notes* Telephone Encounter - Macarena Sanchez - 09/18/2024 4:03 PM EDT Patient will be calling to reschedule her IV IG and benlysta. She needs to find a biofuels product development manager and will call back with the dates that she will be available. documented in this encounterMercy Health [facility] Hospital04-28-2025 Telephone encounter Note * Telephone Encounter [...] (1 pen) subcutaneously once weekly Patient prefers: [facility] Thank you! Maria Esther Pichardo, PharmD Clinical Pharmacist, [employer] [facility] ; Pool: P [facility] Pool #: [id number] [facility]04-22-2025 Telephone encounter Note* Telephone Encounter - Karina Pino - 09/12/2024 2:35 PM EDT Patient has been scheduled at [facility]04-22-2025 Miscellaneous Notes* Telephone Encounter - Karina Pino - 09/12/2024 2:35 PM EDT Patient has been scheduled at [facility] * Telephone Encounter - Sherrie Cortes - [...] below scheduling for the drug. Sandhya Hicks [facility] You25 minutes ago (11:20 AM) DOMINGO Please schedule her every 2 weeks for 3 doses, then every 4 weeks for Benlysta. Thanks, Sandhya Holman [facility] You27 minutes ago (11:18 AM) LS [...] to Rheum provider. Anahi Becerril, RN nurse environmental engineering manager: patient would [place] 8 [place] [facility] [facility] [place] Basia Samuel, RN documented in this encounterMercy Health [facility] Hospital04-22-2025 Telephone encounter Note * Telephone Encounter - Sherrie Cortes - 09/12/2024 2:13 PM EDT Patient called back and is now in agreement to schedule for Benlysta. Patient has been scheduled for Wednesday, 09/18. She will make her future appointments at this visit when she can work around her family arrangements. Spoke w/ T Wyatt regarding daughter recommendations and patient informed. Sherrie Cortes [facility]04-21-2025 Telephone encounter Note* Telephone Encounter - [...] week after her SQ dose. Sandhya Vicente [facility]04-17-2025 Telephone encounter Note* Telephone Encounter - Lynne Ni MD - 09/07/2024 12:52 PM EDT Please start prior authorization for IV benlysta Signed therapy plan with loading doses if approved by insurance. May schedule 1week after last sq injection benlysta pen if approved. Thank you [facility]04-17-2025 Telephone encounter Note* Telephone Encounter - Enma Hamm RN - 09/07/2024 9:04 AM EDT Results discussed with pt. She is set for IVIG 10/04/24. She denies further questions needs or concerns at this time. Enma Hamm RN [facility]04-17-2025 Miscellaneous Notes* Telephone Encounter - Enma Hamm RN - 09/07/2024 9:04 AM EDT Results discussed with pt. She is set for IVIG 10/04/24. She denies further questions needs or concerns at this time. Enma Hamm RN documented in this encounterMercy Health [facility] Hospital04-16-2025 Evaluation note* Diagnosis Onset Date Resolution Status Admit Date Lumbosacral spondylosis acute A pril 2024 3:42pm Other chronic pain acute September 06, 2024 3:42pm Sacroiliitis acute September 06, 2024 3:42pm Lumbosacral spondylosis acute J une 2024 11:15am Other chronic pain acute October 232024 11:15am Sacroiliitis acute November 13, 11:15am [facility] Work Phone: 1(318) 259-585404-16-2025 Evaluation note* Diagnosis Onset Date Resolution Status [...] 212024 9:03am Sacroiliitis acute November 30 9:03am [facility] Work Phone: 1(597) 596-593404-16-2025 Telephone encounter Note* Telephone Encounter - Basia Samuel RN - 09/06/2024 4:20 PM EDT Patient has requested to switch from Benlysta injections to infusions. Will forward to Rheum provider. Anahi Becerril RN nurse environmental engineering manager: patient would like to know [place] 8 [place]. Basia Samuel RN [facility]04-16-2025 History of Present illness Narrative* Vaibhav Carvalho APRN.CORK MIXER - 09/06/2024 9:00 AM EDT Images from the original note were not included. NAME: Ariadna Haley CLINIC NO.: [id number] DATE OF SERVICE: September 06, 2024 (Deven) [...] lower lip done 2 days ago at [facility] - awaiting results. B12 helps especially [...] injections. 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 She has been told they [...] THREE TIMES A DAY^Disp: 135 tablet^Rfl: 1 whabswggfsZMAMJ-ctjtwy-lkpauxxsg (BMX 1:1:1) 1:1:1 liqd^Take 5 mL by [...] (Crohn's [Other]) Mother . Vaibhav Carvalho APRN, TOOL AND DIE SUPERVISOR-C, [facility] Provided at: [place], [place] CC: Manuel Ferris MD [facility] [address] documented in this encounterMercy Health [facility] Hospital04-16-2025 Note[facility]04-14-2025 History of Present illness Narrative* Gordo Barfield MD - 09/04/2024 3:20 PM EDT Subjective Patient ID: Ariadna Haley is a 43 y.o. female who presents for Thyroid Nodule (Follow up ultrasound [facility] 08/24/24) Thyroid US shows a [id number] left inf pole TR4 nodule. Radiology notes [...] unspecified (CMS/HCC) 08/10/2023 Hoarse 08/10/2023 Thyroid nodule ([facility]/HCC) 08/10/2023 Shortness of breath 07/13/2023 Paroxysmal supraventricular tachycardia ([facility]) 07/13/2023 PAC (premature atrial contraction) 07/13/2023 Degenerative disc disease, lumbar 11/08/2023 Paresthesias 11/08/2023 Nipple discharge 11/15/2023 Irregular periods/menstrual cycles 11/15/2023 Facet arthritis of lumbar region 12/15/2023 Prediabetes 08/24/2023 C. difficile diarrhea 03/07/2024 Diarrhea 03/07/2024 Duct ectasia of breast 03/07/2024 Frequent infections 04/01/2024 GERD (gastroesophageal reflux disease) 03/07/2024 History of vitamin D deficiency 10/05/2023 Hypogammaglobulinemia ([facility]) 04/01/2024 Insulin resistance 03/07/2024 Lupus erythematosus 04/06/2024 Sacroiliitis ([facility]) 04/06/2024 Resolved Ambulatory Problems Diagnosis Date Noted No Resolved Ambulatory Problems Past Medical History: Diagnosis Date Cervical lymphadenopathy COVID-19 vaccine administered Difficulty walking Fatigue Fibromyalgia, primary History of removal of cyst 2012 HTN (hypertension) ([facility]) Hx of abnormal cervical Pap smear 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[facility]) Laryngopharyngeal reflux disease Lupus Nonscarring hair loss, unspecified Nontoxic goiter, unspecified ([facility]/HCC) Nontoxic single thyroid nodule ([facility]) Numbness Oral thrush Sleep apnea Vitamin D [...] % gel ergocalciferol (Vitamin D2) 1.25 MG (45381 UT) capsule Take 50,000 Units by mouth [...] for more aggressive care documented in this encounterCox [id number] Telephone encounter Note* Telephone Encounter - Blank Kimball - 09/02/2024 10:28 AM EDT Called and spoke with patient, patient is scheduled for a VV on 10/07/24 at 8:00am. Patient stated will complete labs a walk in [facility]04-12-2025 Miscellaneous Notes* Telephone Encounter - Blank [...] diagnoses: Vitamin D deficiency documented in this encounterMercy Health [facility] Hospital04-11-2025 Telephone encounter Note * Telephone Encounter [...] above. Please process accordingly. Lynne Ni MD [facility]04-11-2025 Telephone encounter Note* Telephone Encounter - [...] Ni MD Assoc. diagnoses: Vitamin D deficiency [facility]04-07-2025 Telephone encounter Note* Telephone Encounter - Renea Schneider MA - 08/28/2024 11:04 AM EDT Do you want labs? Patient coming in Wednesday09/06/24 for follow up treatment. Thanks, Renea Schneider MA [facility]04-01-2025 Miscellaneous Notes* Telephone Encounter - Renea Schneider MA - 08/28/2024 11:04 AM EDT Do you want labs? Patient coming in Wednesday09/06/24 for follow up treatment. Thanks, Renea Schneider MA documented in this encounterMercy Health [facility] Hospital04-01-2025 Miscellaneous Notes* Telephone Encounter - Renea Schneider MA - 11/20/2024 12:00 PM EDT Patient coming in for treatment visit Wednesday11/29/24. Please add lab orders. thanks. Renea Schneider MA documented in this encounterMercy Health [facility] Hospital03-27-2025 NoteTri[facility]03-18-2025 Telephone encounter Note* Telephone Encounter - Basia [...] and patient is aware. Basia Samuel RN [facility]03-18-2025 Miscellaneous Notes* Telephone Encounter - Basia [...] aware. Basia Samuel RN documented in this encounterMercy Health [facility] Hospital03-18-2025 NoteTri[facility]03-18-2025 History of Present illness Narrative* Basia Samuel RN - 08/08/2024 9:03 AM EDT Patient states that she spoke with provider and she will defer IV iron for now, she is taking oral iron and will have labs rechecked in 1 month Basia Samuel RN documented in this encounterMercy Health [facility] Hospital03-05-2025 History of Present illness Narrative* Lois [...] , Rfl: ergocalciferol (Vitamin D-2) 1.25 MG (42169 UT) capsule, Take 1 capsule (50,000 Units) [...] exam, discussion and plan. [facility]Park[facility] Phone: 1(219) 479-499103-05-2025 Instructions* Patient Instructions* Aissatou Hanson RN - [...] time of your visit. documented in this encounterParkview Health [facility] Work Phone: 1(147) 531-768203-04-2025 History of Present illness Narrative* Bernabe English [...] ointment bid. On Plaquenil and Benlysta from lsw and started IVIG from stump shooter. Follow up Diagnosis: Hidradenitis Location: thighs Last [...] given frequent flares of thrush. Start Nystatin 020549 unit suspension qid x 14 days. Recommended [...] not swallow it. Related Medications nystatin (Mycostatin) 357555 UNIT/ML suspension Take 4 mL (400,000 Units) [...] is needed. Instructed to follow up with CAREER INFORMATION SPECIALIST for further work up. Next Visit: 1 year documented in this encounterCox [id number] History of Present illness Narrative* Luna Emanuel [...] been reviewed prior to dispensing the medication. Forestry Engineer Assessment Patient confirmed: Yes Med/dose confirmed: Yes Supplies needed: No supplies needed Missed doses: No Copay amount: 0 Payment confirmed: Yes Delivery method: FedEx Signature required: Waived on patient request Delivery address: [address] [place] [address] Delivery date: 07/27/24 Questions or concerns for the pharmacist?: No Did you have any side effects believed to be related to this medication, that resulted in hospitalization?: No Current Outpatient Medications on File Prior to Visit Medication Sig wybtdklbyqYCOVY-enbils-ijerwvyde (BMX 1:1:1) 1:1:1 liqd Take 5 mL [...] facility-administered medications on file prior to visit. [facility] RX SPECIALTY CLINICAL ASSESSMENT - INFLAMMATORY [...] longer tolerated. Luna Emanuel documented in this encounterMercy Health [facility] Hospital03-04-2025 [facility]27[facility]25 NoteHNO ID: [id number] Author: ALHAJI HEAD, DO Service: ? Author Type: Physician Type: Progress Notes Filed: 07/21/2024 13:05 Note Text: VIRTUAL VISIT PROGRESS NOTE This is a virtual visit using [employer] Video Visit. It required patient-provider interaction for the medical decision making as documented below. I have communicated my name and active licensure. The patient's identity and physical location were verified at the time of this visit. Either the patient or their legal leasing representative has been informed of the risks [...] of 18 Current Outpatient Medications Medication Sig czgffopjzaFGIVH-siifyq-jzexpaarv (BMX 1:1:1) 1:1:1 liqd Take 5 mL [...] WHILE ON* belimumab ( (more content not included)...[facility]02-27-2025 History of Present illness Narrative* Alhaji Head DO - 07/20/2024 11:41 AM EST VIRTUAL VISIT PROGRESS NOTE This is a virtual visit using Mir[employer] Zoom Video Visit. It required patient- provider interaction for the medical decision making as documented below. I have communicated my name and active licensure. The patient's identity and physical location wereverified at the time of this visit. Either the patient or their legal leasing representative has been informed of the risks [...] of 18 Current Outpatient Medications Medication Sig xetuztrvykDAXKA-nsupnv-lmomsqqwo (BMX 1:1:1) 1:1:1 liqd Take 5 mL [...] on the R. The patient or authorized leasing representative has agreed to proceed with the [...] axillary nodule which is being followed by family law paralegal. Through shared decision making with the patient, [...] DO July 21, 2024 documented in this encounterMercy Health Anderson Hospital02-26-2025 Procedure noteKevin Ville [id number] Pain Management Procedure Note Signed Patient: Ariadna Haley MR#: [id number] : 1980 Acct:[id number] Age/Sex: 43 / F Adm Date: 5 Loc: Room: Type: [facility] Attending Dr: Adolfo Kang MD Copies to: [...] (Reflux Raft, Reflux Gourmet) documented in this encounterMercy Health Anderson Hospital02-19-2025 NoteTrihealth02-19-2025 History of Present illness Narrative* Marky Barnes PA-C - 07/12/2024 2:14 PM EST Images from the original note were not included. [facility] NOTE CC: Ariadna Haley is a [...] Current medication(s): Current Outpatient Medications Medication Sig xzhziklrkzUVSQY-tfuqdh-tlpxtlcox (BMX 1:1:1) 1:1:1 liqd Take 5 mL [...] Level: 3 - Low documented in this encounterMercy Health Anderson Hospital02-17-2025 Evaluation note* Diagnosis Onset Date Resolution Status Admit Date Lumbosacral spondylosis acute F ebruary 2024 3:16pm Other chronic pain acute Februa 2024 3:16pm Sacroiliitis acute June 3:16pm [facility] Work Phone: 1(588) 813-184002-17-2025 Evaluation note* Diagnosis Onset Date Resolution Status Admit Date Lumbosacral spondylosis acute F ebruary 2024 3:16pm Other chronic pain acute Februa 2024 3:16pm Sacroiliitis acute June 3:16pm Lumbosacral spondylosis acute M 2024 3:40pm Other chronic pain acute July 31, 2024 3:40pm Sacroiliitis acute July 31, 2024 3:40pm [facility] Work Phone: 1(348) 423-293002-17-2025 Telephone encounter Note* Telephone Encounter - Krista Braswell MA - 07/10/2024 7:28 AM EST Pt was notified via . [facility]02-17-2025 Miscellaneous Notes* Telephone Encounter - Krista [...] Ni MD documented in this encounterMercy Health Anderson Hospital02-16-2025 Telephone encounter Note * Telephone Encounter [...] above. Please process accordingly. Lynne Ni MD [facility]02-06-2025 History of Present illness Narrative* Luna [...] been reviewed prior to dispensing the medication. Forestry Engineer Assessment Patient confirmed: Yes Med/dose confirmed: Yes Supplies needed: No supplies needed Missed doses: No Estimated days supply on hand: 1 Copay amount: 0 Payment confirmed: Yes Delivery method: FedEx Signature required: Waived on patient request Delivery address: [address], [facility] [address] Delivery date: 07/05/24 Questions or concerns for [...] facility-administered medications on file prior to visit. [facility] RX SPECIALTY CLINICAL ASSESSMENT - INFLAMMATORY [...] longer tolerated. Luna Emanuel documented in this encounterMercy Health Anderson Hospital02-06-2025 NoteTrihealth01-31-2025 Telephone encounter Note* Telephone Encounter - Krista Fonseca MA - 06/23/2024 8:27 AM EST Pt has been notified via [employer]. [facility]01-31-2025 Miscellaneous Notes* Telephone Encounter - Krista Fonseca MA - 06/23/2024 8:27 AM EST Pt has been notified via [employer]. * Telephone Encounter - Lynne Ni MD [...] Ni MD documented in this encounterMercy Health Anderson Hospital01-30-2025 Telephone encounter Note * Telephone Encounter [...] above. Please process accordingly. Lynne Ni MD [facility]01-29-2025 Telephone encounter Note* Telephone Encounter - Sherrie Cortes - 06/21/2024 2:10 PM EST Thanks for the clarification! I didn't schedule the patient yet for Iron because of the question below so we are all good. Thank you! Sherrie Cortes [facility]01-29-2025 Miscellaneous Notes* Telephone Encounter - Sherrie [...] we will recheck. thanks documented in this encounterMercy Health Anderson Hospital01-29-2025 Telephone encounter Note * Telephone Encounter [...] is aware you will call if needed. [facility]01-29-2025 Telephone encounter Note* Telephone Encounter - Vaibhav Carvalho APRN.CNP - 06/21/2024 1:07 PM EST Ok that is fine she can try oral iron Ferrous sulfate 325 mg every other day. Ok to keep her next appointment and we will recheck. thanks [facility]01-28-2025 Telephone encounter Note* Telephone Encounter - Sherrie Cortes - 06/20/2024 8:38 AM EST Left another message for patient. Sent MyChart to call back to schedule infusions when she's ready to schedule and provided phone number. Sherrie Cortes [facility]01-28-2025 Miscellaneous Notes* Telephone Encounter - Sherrie [...] callback with any questions. documented in this encounterMercy Health Anderson Hospital01-24-2025 Telephone encounter Note * Telephone Encounter - Sherrie Cortes - 06/16/2024 3:32 PM EST Call placed to patient, no answer. Left detailed message to call back to schedule for Venofer. Sherrie Cortes [facility]01-24-2025 Telephone encounter Note* Telephone Encounter - Vaibhav Carvalho APRN.CNP - 06/16/2024 12:26 PM EST Called patient and left a message regarding iron infusions. I did inform patient that she is low oniron and we can replace with IV infusion. Will have the office call to schedule. Encouraged to callback with any questions. [facility]01-23-2025 Telephone encounter Note* Telephone Encounter - [...] Pt had recent mammogram that was negative [facility] [id number] Miscellaneous Notes* Telephone Encounter - KELVIN Cabrera [...] mammogram that was negative documented in this encounterCox [id number] History of Present illness Narrative* Iraida Pate, MAURILIO.CORK MIXER - 06/14/2024 10:43 AM EST Glucose - SIBO CPT 56158 Hydrogen Breath Test Ariadna Haley 1980 June 14, 2024 Referring Physician: Bandar Portillo NP Indication: NSG TEST INDICATIONS: Diarrhea R19.7, Abdominal Pressure R10.9 Weight: 275 lbs Location: [facility] Duration of Test: 2 hrs Hydrogen [...] Signature: Iraida Pate APRN.CNP documented in this encounterMercy Health Anderson Hospital01-21-2025 Progress note* [facility]ne [...] 13, 2024 TIME: 10:29 AM PAGER/CONTACT #: [facility]01-21-2025 Miscellaneous Notes* [facility] - Dionne [...] 10:29 AM PAGER/CONTACT #: documented in this encounterMercy Health Anderson Hospital01-21-2025 NoteTrihealth01-21-2025 History of Present illness Narrative* Vaibhav Carvalho APRN.CNP - 06/13/2024 9:07 AM EST Images from the original note were not included. NAME: Ariadna Haley [facility] NO.: [id number] DATE OF SERVICE: June 13, 2024 (Deven) [...] lower lip done 2 days ago at [facility] - awaiting results. B12 helps especially [...] injections. 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 She has been told they [...] (Crohn's [Other]) Mother . Vaibhav Carvalho APRN, TOOL AND DIE SUPERVISOR-C, [facility] Provided at: [place], [place] CC: Manuel Ferris MD [address] [place] [address] documented in this encounterMercy Health Anderson Hospital01-20-2025 NoteTrihealth01-20-2025 History of Present illness Narrative* Lee Friedman - 06/12/2024 2:31 PM EST CMN RECEIVED BY [employer] VIA FAX, COMPLETED, AND PLACED IN PROVIDER MAILBOX FOR SIGNATURE Lee Friedman Coordinator III [employer] SENDING CMN: Josh SIGNED AND DATED CMN, FAXED TO DME & CONFIRMATION PAGE RECEIVED: 06.28.2024 documented in this encounterMercy Health Anderson Hospital01-20-2025 Telephone encounter Note * Telephone Encounter - Margret Cuenca MA - 06/12/2024 12:00 PM EST Patient has an OTV appointment on 06/13. Please place lab orders. Margret Cuenca MA [facility]01-20-2025 Miscellaneous Notes* Telephone Encounter - Margret Cuenca MA - 06/12/2024 12:00 PM EST Patient has an OTV appointment on 06/13. Please place lab orders. Margret Cuenca MA documented in this encounterMercy Health Anderson Hospital01-14-2025 History of Present illness Narrative* Luna [...] been reviewed prior to dispensing the medication. Forestry Engineer Assessment Patient confirmed: Yes Med/dose confirmed: Yes Supplies needed: No supplies needed Missed doses: No Estimated days supply on hand: 1 Copay amount: 0 Payment confirmed: Yes Delivery method: FedEx Signature required: Waived on patient request Delivery address: [address] [place] [id number] Delivery date: 06/08/24 Questions or concerns for [...] facility-administered medications on file prior to visit. [facility] RX SPECIALTY CLINICAL ASSESSMENT - INFLAMMATORY [...] longer tolerated. Luna Emanuel documented in this encounterMercy Health Anderson Hospital01-14-2025 NoteTrihealth01-14-2025 History of Present illness Narrative* KELVIN [...] Ambulatory Problems Diagnosis Date Noted Autoimmune disease ([facility]) 06/01/2023 Fibromyalgia 06/01/2023 Autonomic dysfunction 06/01/2023 Dizziness [...] Tobacco use disorder 07/06/2023 Cytomegalovirus infection (HCC) ([facility]) 07/06/2023 Depression, recurrent ([facility]) 06/09/2023 Discoid lupus erythematosus ([facility]) 02/14/2022 Disturbance of skin sensation 07/06/2023 Elevated sed rate 03/05/2021 High total serum IgM 03/05/2021 Enthesopathy of hip region 07/06/2023 Essential hypertension ([facility]) 06/09/2023 Excessive and frequent menstruation with irregular cycle 09/24/2022 Family history of Crohn's disease 03/05/2021 Hair loss 03/05/2021 Hyperlipidemia (CMS/HCC) 05/31/2014 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 02/04/2023 Long-term [...] Chronic laryngopharyngitis COVID-19 vaccine administered x 2 ([place]) Difficulty walking Fatigue Fibromyalgia, primary GERD (gastroesophageal reflux disease) History of removal of cyst 2013 tailbone x2 HTN (hypertension) ([facility]) Hx of abnormal cervical Pap smear Hyperlipidemia (CMS/HCC) 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[facility]) Insulin resistance Laryngopharyngeal reflux disease Lupus Nonscarring hair loss, unspecified Nontoxic goiter, unspecified (CMS/HCC) Nontoxic single thyroid nodule (CMS/[facility]) Numbness Oral lesion Oral thrush Prediabetes Sleep [...] behalf of: KELVIN Cabrera documented in this encounterCox [id number] NoteTrihealth12-23-2024 History of Present illness Narrative* Deisy Jaime LSW - 05/15/2024 9:09 AM EST Patient's name appears on the [facility] First Time Treatment Report for a non- oncology treatment. No psychosocial assessment is indicated. BILL Rosenberg Goals of Care Advance Directives are not on file. documented in this encounterMercy Health Anderson Hospital12-20-2024 History of Present illness Narrative* Luna [...] been reviewed prior to dispensing the medication. Forestry Engineer Assessment Patient confirmed: Yes Med/dose confirmed: Yes Supplies needed: No supplies needed Missed doses: No Estimated days supply on hand: 1 Copay amount: 0 Payment confirmed: Yes Delivery method: FedEx Signature required: Waived on patient request Delivery address: [address] [place] [address] Delivery date: 05/16/24 Questions or concerns for [...] facility-administered medications on file prior to visit. [facility] RX SPECIALTY CLINICAL ASSESSMENT - INFLAMMATORY [...] longer tolerated. Luna Emanuel documented in this encounterMercy Health Anderson Hospital12-20-2024 NoteTrihealth12-04-2024 Nurse Note* Radha Schofield MA - 04/26/2024 9:32 AM EST Patient Identification confirmed: yes. Injection given and documented on JUL per provider order. Radha Schofield MA [facility]12-04-2024 Nurse Note* Radha Schofield MA - 04/26/2024 9:32 AM EST Patient Identification confirmed: yes. Injection given and documented on JUL per provider order. Radha Schofield MA documented in this encounterMercy Health Anderson Hospital11-22-2024 Telephone encounter Note * Telephone Encounter - Gay Barnett - 04/14/2024 12:11 PM EST Patient coming in for a sibo breath test on Wednesday and has been on keflex for 3 days and needs to be on for ten so she will need to reschedule [facility]11-22-2024 Miscellaneous Notes* Telephone Encounter - Gay Barnett - 04/14/2024 12:11 PM EST Patient coming in for a sibo breath test on Wednesday and has been on keflex for 3 days and needs to be on for ten so she will need to reschedule documented in this encounterMercy Health Anderson Hospital11-19-2024 NoteTrihealth11-18-2024 Miscellaneous Notes* Telephone Encounter - Sherrie [...] Please advise. Sherrie Cortes documented in this encounterMercy Health Anderson Hospital11-18-2024 Telephone encounter Note * Telephone Encounter - Sherrie Cortes - 04/10/2024 2:12 PM EST Patient requested this appointment be rescheduled for the end of April. She has been scheduled for 05/19, she is all set. Thank you! Sherrie Cortes [facility]11-18-2024 Telephone encounter Note* Telephone Encounter - Shantel Arce RPh - 04/10/2024 2:07 PM EST SUBQ products (eg, 20% [Cuvitru, Hizentra, Xembify]) or IM products (eg, 16% [GamaSTAN]) intravenously. It would depend upon insurance coverage and would be done as a retail prescription at designated insurance specialty pharmacy. Elpidio Arce, PharmD, BCOP [facility] Work Phone: [phone]) 179-766511-18-2024 Telephone encounter Note* Telephone Encounter - Enma [...] appt per pt request Enma Hamm RN [facility]11-18-2024 Telephone encounter Note* Telephone Encounter - Enma Hamm RN - 04/10/2024 12:54 PM EST Called to discuss with pt. She was researching online and found SCIG a weekly subq injection to give herself that is less dose, and has less side effects. Pharmacy/[place]: please advise Enma Hamm RN [facility]11-18-2024 Telephone encounter Note* Telephone Encounter - Vera Najera MD - 04/10/2024 12:26 PM EST Really sorry - I don't recall the home infusion of IVIG - I think it is safer to give it to her in-house as IV so we can monitor infusion reactions. Sorry if I created a misunderstanding. [facility]11-18-2024 History of Present illness Narrative* Gordo [...] Ambulatory Problems Diagnosis Date Noted Autoimmune disease ([facility]) 06/01/2023 Fibromyalgia 06/01/2023 Autonomic dysfunction 06/01/2023 Dizziness [...] AREA NEEDED ergocalciferol (Vitamin D2) 1.25 MG (32324 UT) capsule Take 50,000 Units by mouth [...] referred from the [facility] documented in this encounterCox [id number] Telephone encounter Note* Telephone Encounter - Sherrie [...] Triage was involved? Please advise. Sherrie Cortes [facility]11-15-2024 NoteTrihealth11-15-2024 History of Present illness Narrative* Deisy Jaime LSW - 04/07/2024 9:30 AM EST Patient's name appears on the [facility] First Time Treatment List for a non- oncology treatment. No psychosocial assessment is indicated. BILL Rosenberg Goals of Care Advance Directives are not on file SIGNATURE: JUSTICE Rosenberg PATIENT NAME: Ariadna Haley DATE: April 07, 2024 TIME: 9:31 AM PAGER/CONTACT #: documented in this encounterMercy Health Anderson Hospital11-14-2024 Evaluation + Plan note* Assessment & [...] her Raynaud's. All her questions were answered. Demohour [id number] Miscellaneous Notes* Assessment & Plan Note - [...] her questions were answered. documented in this encounterAdena [facility]ayette [facility]11-14-2024 History of Present illness Narrative* Hayden Arciniega [...] Interpersonal Safety: Unknown (07/15/2023) Received from [facility] Fear of Current or [...] Assessment and Plan: Problem List Rheumatoid arthritis ([facility]) Relevant Medications ibuprofen (ADVIL,MOTRIN) 200 mg tablet predniSONE (STERAPRED DS) 10 mg tablet pack Systemic lupus erythematosus ([facility]) - Primary Relevant Medications ibuprofen (ADVIL,MOTRIN) [...] orders for this visit: Systemic lupus erythematosus ([facility]) - Vas art doppler lwr bilat mult lev/PVR; Future Cold extremities - [facility] - [place], [place] - Vas art doppler lwr bilat mult lev/PVR; Future Pain of lower extremity, unspecified laterality - [facility] - [place], [place] - Vas art doppler lwr bilat mult lev/PVR; Future Rheumatoid arthritis, involving unspecified site, unspecified whether rheumatoid factor present ([facility]) Current smoker 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 Hayden [...] you for your understanding. documented in this encounterMain Campus Medical CenterEldarion11-14-2024 Instructions* Patient Instructions* Hayden Arciniega MD - 04/06/2024 9:40 AM EST Are You Ready To Kick The Habit? Free Tobacco Cessation Resources [facility] provide all employees with free tobacco cessation services that include: Counseling to understand nicotine addiction Education about medications that can help you successfully quit Assistance with developing a plan to quit Call to set up an individual appointment or find out when group classes will be held: Ginna [facility]: [phone] [facility]: [phone] [facility]: [phone] [facility]: [phone] Quit Smoking Action Plan and Resources [facility] offers an eight-week, online smoking cessation plan to all [facility] employees, regardless of whether [place] is your medical insurance provider. Go to www.[email or web address].org/employeewellness and click the Health Risk Assessment and Resources link to get started. In the [employer] menu, click Action Plans instead of Health Risk Assessment to access the Quit Smoking Action Plan. Additional smoking cessation resources are also available to all [facility] employees on the Kpqhb9Vebvru web page at www.Kidaptive/quitsmoking. [place] Tobacco Cessation Program If [place] is your medical insurance provider, there are more free resources available to you, including: No copays or deductibles on local tobacco cessation counseling services to help you quit Prescription assistance for tobacco cessation medications to help you quit For details about the tobacco cessation program available to [employer] members, go to www.[employer]quity.[employer] (Search: Tobacco Cessation Program). [place] Tobacco Quit Line 1-841-NINS-NOW ( ) is a toll-free, telephonic service that helps [place] residents quit smoking and using tobacco. It is staffed by experts who tailor a quit plan for you and provide you with advice. [place] Tobacco Quit Line 1-245-VTOL-NOW ( ) is a toll-free, telephonic service that helps [place] residents quit smoking and using tobacco. It is staffed by experts who tailor a quit plan for you and provide you with advice. Two weeks of nicotine replacement therapy may be provided at no charge, if needed. Additional Resources These national organizations also offer free information and resources to help you quit tobacco: [employer]--www.cancer.org/healthy/stayawayfromtobacco [employer]--www.heart.org (Search: Quit Smoking) Centers for Disease Control and Prevention--www.cdc.gov/tobacco [place] [employer]--www.lungusa.org documented in this encounterAdena [facility]ayette [facility]11-11-2024 Telephone encounter Note* Telephone Encounter - Marky Mike DO - 04/03/2024 9:36 AM EST Changed terbinafine to itraconazole at pt request. [facility] [id number] Miscellaneous Notes* Telephone Encounter - Marky Mike DO - 04/03/2024 9:36 AM EST Changed terbinafine to itraconazole at pt request. documented in this encounterCox [id number] Telephone encounter Note* Telephone Encounter - Lynne [...] above. Please process accordingly. Lynne Ni MD [facility]11-10-2024 Miscellaneous Notes* Telephone Encounter - Lynne [...] Ni MD documented in this encounterMercy Health Anderson Hospital11-10-2024 History of Present illness Narrative* Marky [...] with her immunosuppressive therapy. documented in this encounterCox [id number] Instructions* Patient Instructions* Vera Najera MD - 04/01/2024 4:28 PM EST Obtain body fluid culture from [facility]. B12 shot today and every 4 weeks. Continue Folic acid. Frequent infections plan IVIG for hypogammaglobulinemia Start when approved. RTC 3 months repeat labs same day. IVIG same day. documented in this encounterMercy Health Anderson Hospital11-08-2024 NoteTrihealth11-08-2024 History of Present illness Narrative* Ashly Castillo - 03/31/2024 12:29 PM EST CMN RECEIVED BY [employer] VIA FAX, COMPLETED, AND PLACED IN PROVIDER MAILBOX FOR SIGNATURE Ashly Castillo Plastic Tool Maker II 03/31/2024 [employer] SENDING CMN: JOSH SIGNED AND DATED CMN, FAXED TO DME & CONFIRMATION PAGE RECEIVED: 04/11/2024 documented in this encounterMercy Health Anderson Hospital11-07-2024 Telephone encounter Note * Telephone Encounter - Mae Elaine - 03/30/2024 8:01 AM EST Pt is scheduled and instructions were sent thru my chart. [facility]11-07-2024 Miscellaneous Notes* Telephone Encounter - Mae [...] note were not included. documented in this encounterMercy Health Anderson Hospital11-06-2024 Telephone encounter Note * Telephone Encounter - Mae Elaine - 03/29/2024 9:02 AM EST Im for pt- saved time on 04/18 7:45 Also sent mychart msg. dm [facility]11-04-2024 NoteTrihealth11-04-2024 History of Present illness Narrative* Vera Najera MD - 03/27/2024 3:03 PM EST Images from the original note were not included. NAME: Ariadna Haley [facility] NO.: [id number] DATE OF SERVICE: March 27, 2024 (Marquis) Some elements in this clinic note that are critical to medical decision making have been carefully reviewed and included from a prior clinic note dated: December 27, 2023 (Liz) Referring Provider: Dr. Manuel Ferris Additional Clinicians involved in Ariadna Haley's care: VIRTUAL VISIT PROGRESS NOTE This is a virtual visit using Frank[employer] Chat Product Marketing Specialist Video Call. It required patient- provider interaction for the medical decision making as documented below. I have communicated my name and active licensure. The patient's identity and physical location wereverified at the time of this visit. Either the patient or their legal leasing representative has been informed of the risks [...] noted. PLAN: Obtain body fluid culture from [facility]. B12 shot today and every [...] lower lip done 2 days ago at [facility] - awaiting results. B12 helps especially [...] injections. 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 She has been told they [...] CPE Hematology and Oncology Services Provided at: [place], [place] CC: Manuel Ferris MD [address] [address] documented in this encounterMercy Health Anderson Hospital10-31-2024 History of Present illness Narrative* KELVIN [...] Ambulatory Problems Diagnosis Date Noted Autoimmune disease ([facility]) 06/01/2023 Fibromyalgia 06/01/2023 Autonomic dysfunction 06/01/2023 Dizziness [...] Tobacco use disorder 07/06/2023 Cytomegalovirus infection (HCC) ([facility]) 07/06/2023 Depression, recurrent ([facility]) 06/09/2023 Discoid lupus erythematosus ([facility]) 02/14/2022 Disturbance of skin sensation 07/06/2023 Elevated sed rate 03/05/2021 High total serum IgM 03/05/2021 Enthesopathy of hip region 07/06/2023 Essential hypertension ([facility]) 06/09/2023 Excessive and frequent menstruation with irregular cycle 09/24/2022 Family history of Crohn's disease 03/05/2021 Hair loss 03/05/2021 Hyperlipidemia ([facility]) 05/31/2014 correction current use of systemic steroids 02/04/2023 Long-term use of high-risk medication 06/15/2022 Long-term use of Plaquenil 03/05/2021 LPRD (laryngopharyngeal reflux disease) 07/06/2023 Megaloblastic anemia due to vitamin B12 deficiency 03/04/2022 Myalgia 07/06/2023 Obesity, Class III, BMI 40-49.9 (morbid obesity) ([facility]) 09/07/2022 Obstructive sleep apnea syndrome 05/20/2022 Oral lesion 07/06/2023 Pain, hip 07/06/2023 Rash and nonspecific skin eruption 03/05/2021 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) 02/04/2023 Somnolence, daytime 05/20/2022 Secondary osteoarthritis of multiple sites 03/05/2021 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 02/04/2023 Swelling of lymph nodes 03/05/2021 Vitamin D deficiency 03/06/2021 Vitamin B12 deficiency 05/31/2014 Pure hypercholesterolemia, unspecified ([facility]) 08/10/2023 Hoarse 08/10/2023 Thyroid nodule ([facility]) 08/10/2023 Shortness of breath 07/13/2023 Paroxysmal supraventricular tachycardia ([facility]) 07/13/2023 PAC (premature atrial contraction) 07/13/2023 Degenerative disc disease, lumbar 11/08/2023 Paresthesias 11/08/2023 Nipple discharge 11/15/2023 Irregular periods/menstrual cycles 11/15/2023 Facet arthritis of lumbar region 12/15/2023 Resolved Ambulatory Problems Diagnosis Date Noted No Resolved Ambulatory Problems Past Medical History: Diagnosis Date Cervical lymphadenopathy COVID-19 vaccine administered Difficulty walking Fatigue Fibromyalgia, primary GERD (gastroesophageal reflux disease) History of removal of cyst 2012 HTN (hypertension) ([facility]) Hx of abnormal cervical Pap smear Insulin resistance Laryngopharyngeal reflux disease Lupus Numbness Oral thrush Prediabetes Sleep apnea Weakness of limb HISTORY PAST MEDICAL HISTORY SOCIAL HISTORY Past Medical History: Diagnosis Date Anxiety Cervical lymphadenopathy Chronic laryngopharyngitis COVID-19 vaccine administered x 2 ([employer]) Difficulty walking Fatigue Fibromyalgia, primary GERD (gastroesophageal reflux disease) History of removal of cyst 2012 tailbone x2 HTN (hypertension) ([facility]) Hx of abnormal cervical Pap smear Hyperlipidemia ([facility]) Insulin resistance Laryngopharyngeal reflux disease Lupus Numbness [...] behalf of: KELVIN Cabrera documented in this encounterCox [id number] Nurse Note* Stacy Gutiérrez MA - 03/23/2024 10:16 AM EDT Patient Identification confirmed: yes. Injection given and documented on MAR per provider order. Stacy Gutiérrez MA [facility]10-31-[facility]24 Nurse Note* Stacy Gutiérrez MA - 03/23/2024 10:16 AM EDT Patient Identification confirmed: yes. Injection given and documented on MAR per provider order. Stacy Gutiérrez MA documented in this encounterMercy Health Anderson Hospital10-28-2024 Telephone encounter Note * Telephone Encounter - Mae Elaine - 03/20/2024 12:37 PM EDT Images from the original note were not included. [facility]10-26-[facility] History of Present illness Narrative* Lynne [...] visit. 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, see primary care provider for recurrent flank pain/UTIs, improved with plaquenil 2tabs daily, start photoprotection, see ophthalmology, steroids/prednisone 10mg daily/ per p rimingalls care provider/try weaning off, see derm/?eval recurrent boils, see spine/pain clinic/improved with lyrica/may increase if needed, see derm, start prn heat/ice/otc arthritis creams, low impact weightbearing exercise as tolerated, see neurology/on metoprolol for POTs, avoid aggravating triggers, snf pain recommendations per primary care provider/pain clinic/patient [...] neurology/on metoprolol for POTs, avoid aggravating triggers, snf pain recommendations per primary care provider/pain clinic/patient [...] Due for eye exam. 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 M79.641, M79.642 Bilateral hand pain M32.9 Systemic lupus erythematosus, unspecified SLE type, unspecified organ involvement status ([facility]) E53.8 Vitamin B12 deficiency L93.0 Discoid lupus [...] measures, may consider osteoporosis treatment if on snf steroids/abnormal bmd, take vitamin D script once [...] neurology/on metoprolol for POTs, avoid aggravating triggers, snf pain recommendations per primary care provider/pain clinic/patient [...] (200mg) daily with a meal Please see artillery meteorological man every 6-12months while on Hydroxychloroquine. Start [...] touching your toes, sit-ups, using row machine snf pain recommendations per primary care provider/pain clinic [...] video & audio (virtual) or phone or [id number] patient care, completing clinical documentation, obtaining and/or [...] Workers' Compensation? No Do you need an torch operator? No [facility] MYCHART ZOOM MESSAGE Question 03/16/2024 [...] of Right Forearm or Lower Left Leg. [facility] PROMIS 10 ADULT SHORT FORM V1.0 GLOBAL [...] Strongly Agree documented in this encounterMercy Health Anderson Hospital10-26-2024 NoteTrihealth10-26-2024 Instructions* Patient Instructions* Lynne Ni MD [...] (200mg) daily with a meal Please see artillery meteorological man every 6-12months while on Hydroxychloroquine. azathioprine [...] touching your toes, sit-ups, using row machine rat exterminator pain recommendations per primary care provider/pain clinic [...] your usual activities immediately. documented in this encounterMercy Health Anderson Hospital10-25-2024 Telephone encounter Note * Telephone Encounter [...] above. Please process accordingly. Lynne Ni MD [facility]10-25-2024 Miscellaneous Notes* Telephone Encounter - Lynne [...] Department VIDEO SPEC EST 03/18/2024 9:00 AM [facility] REJ Last Ophthalmology Check for Plaquenil (Hydroxychloroquine) [...] Assoc. diagnoses: Pseudomonas infection documented in this encounterMercy Health Anderson Hospital10-25-2024 Telephone encounter Note * Telephone Encounter [...] organ involvement (HCC) Rheumatology Lynne iN MD 02/04/2023 Other systemic lupus erythematosus with other organ involvement (HCC) Rheumatology Lynne Ni MD 06/15/2022 Other systemic lupus erythematosus with other organ involvement (HCC) Rheumatology Lynne Ni MD Upcoming Rheumatology Appointments - Next 365 Days Visit Type Date Time Department VIDEO SPEC EST 03/18/[facility]24 [facility] [facility] Last Ophthalmology Check for Plaquenil (Hydroxychloroquine) [...] months 06/02/24 06/03/23 02/21/24 Auth. provider: Vera Najear MD Assoc. diagnoses: [...] Alhaji Head DO Assoc. 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 Exam conducted with a trim and burr operator present. Vitals: Estimated body mass index [...] Disease with Dr. Kelsey and [facility]. Patient voiced that Dr. Kelsey recommended surgery, but patient feels that maybe excessive. Specialist [facility] suggested monitoring. Patient has had mammogram. Patient does not put anything on her breast.Ruled out Mondor's Breast concerns. Discussed Geneva Oil at night and Vitamin E lotion. Patient voiced that her breast feel brambila and heavier. Discussed growth of breast and proper support. Breastare not hot nor warm to the touch. Patient to obtain bilateral breast ultrasound. Patient to followup with routine annual appointment and as needed. Documented by Alicia Christine LPN on behalf of: Luan Valdivia DO documented in this encounterCox [id number] NoteTrihealth10-16-2024 NoteBELLST[facility] Note Chief Complaint: New patient here to establish care. Ref from Gay Enciso CNP for hypertension. Former [facility] cardiology patient. Had echo a few weeks ago at [facility]. Says her BP is very [...] past several months. She has seen 2-3 wig comber in the past. She has undergone a [...] on any stimulants including caffeinated beverages, alcohol, [id number]-rdh-[id number] Sudafed etc. If her symptoms of palpitations persist, particular if she has lightheadedness or dizziness, head upright tilt table test may be reasonable to evaluate for possible dysautonomia's I discussed the side effects and risks of long-term steroid therapy and recommended she discuss with her lsw weaning off soon as possible Given her morbid obesity, her current symptoms and comorbidities are likely related to excessive weight: I encouraged physical activity, attempts to lose weigh (more content not included)...[facility] 03-07-2024 NoteTrihealth10-15-2024 History of Present illness Narrative* Lee Friedman - 03/07/2024 8:35 AM EDT CMN RECEIVED BY [employer] VIA FAX, COMPLETED, AND PLACED IN PROVIDER MAILBOX FOR SIGNATURE Lee Friedman Coordinator III 03.07.2024 DME COMPANY SENDING CMN: Josh SIGNED AND DATED CMN, FAXED TO DME & CONFIRMATION PAGE RECEIVED: 03.07.2024 documented in this encounterMercy Health Anderson Hospital10-01-2024 Telephone encounter Note * Telephone Encounter [...] terrified to drive that far to [place].' Further reviewed the reasoning behind the visit needing to be in-person and stated that I would have our dental scheduler reach out if she is willingto accept an in-person appt. PT requested that I review with our clinical team if this can be a VV before she schedules. I let her know I will do so and be in touch. She had no further questions at this time. Luda Vargas Genetic Counseling Stage Setting Painter Apprentice Additional: see Khoa for documentation of scheduling and cancellation with genetics in 2021 [facility]10-01-2024 Miscellaneous Notes* Telephone Encounter - Luda [...] 'too terrified to drive that far to [facility] Further reviewed the reasoning behind the visit needing to be in-person and stated that I would have our dental scheduler reach out if she is willingto accept an in-person appt. PT requested that I review with our clinical team if this can be a VV before she schedules. I let her know I will do so and be in touch. She had no further questions at this time. Luda Vargas Genetic Counseling Stage Setting Painter Apprentice Additional: see Khoa for documentation of scheduling and cancellation with genetics in 2021 documented in this encounterMercy Health Anderson Hospital09-30-2024 Nurse Note* Kenzie Shannon MA - 02/21/2024 11:13 AM EDT Patient Identification confirmed: yes. Injection given and documented on MAR per provider order. Kenzie Shannon MA [facility]09-30-2024 Nurse Note* Kenzie Shannon MA - 02/21/2024 11:13 AM EDT Patient Identification confirmed: yes. Injection given and documented on MAR per provider order. Kenzie Shannon MA documented in this encounterMercy Health Anderson Hospital09-27-2024 Telephone encounter Note * Telephone Encounter - Sherrie Jimenes - 02/18/2024 1:26 PM EDT Patient is calling the [facility] office requesting Dr. Ni to place a referral to genetics. Please advise. [facility]09-27-2024 Miscellaneous Notes* Telephone Encounter - Sherrie Jimenes - 02/18/2024 1:26 PM EDT Patient is calling the [facility] office requesting Dr. Ni to place a referral to genetics. Please advise. documented in this encounterMercy Health Anderson Hospital09-24-2024 Telephone encounter Note * Telephone Encounter - Hansa Javed LPN - 02/15/2024 9:49 AM EDT PAP ORDER FAXED TO [facility] WITH DEMOGRAPHICS, OFFICE NOTES WITH CONFIRMATON NOTED. [facility]09-24-2024 Miscellaneous Notes* Telephone Encounter - Hansa Javed LPN - 02/15/2024 9:49 AM EDT [facility], OFFICE NOTES WITH CONFIRMATON NOTED. documented in this encounterMercy Health Anderson Hospital09-23-2024 History of Present illness Narrative* Elton (Refrigeration Systems Installer)Luda - 02/14/2024 2:32 PM EDT [facility] [...] been reviewed prior to dispensing the medication. Forestry Engineer Assessment Patient confirmed: Yes Med/dose confirmed: Yes Missed doses: No Estimated days supply on hand: 1 Next cycle/dose due: 02/17/24 Copay amount: 0 Payment confirmed: Yes Delivery method: FedEx Signature required: Waived on patient request Delivery address: [address] [place] [address] [place] [place], [place] Delivery date: 02/17/24 Questions or concerns [...] facility-administered medications on file prior to visit. [facility] RX SPECIALTY CLINICAL ASSESSMENT - INFLAMMATORY [...] efficacy and/or no longer tolerated. Luda Vale [facility] [phone] documented in this encounterMercy Health Anderson Hospital09-23-2024 History of Present illness Narrative* Elton EpsteinYAMAPLuad Benz - 02/14/2024 2:26 PM EDT Benefits investigation was conducted, indicating that a re-authorization is required for [employer]. PA was initiated and pending review. Plan Name: Keesha CoverMyMeds Balderrama: [id number] [facility] [phone] documented in this encounterMercy Health Anderson Hospital09-23-2024 Instructions* Patient Instructions* Lexus Heck APRN.CNP [...] are resources available at the [facility] such as a nutrition consultation or referral to weight management programs at our [facility]. Please let us know if we can [...] and out of pocket expenses. DME: Josh [phone] - Remember to clean your mask and equipment regularly, as directed. - Avoid use of ozone privacy compliance manager, SoClean devices, or UV cleaning devices - [...] the central scheduling system for the [facility] at [phone]. [facility] now offers direct scheduling for patients to schedule appointments. Virtual visits are also available. Call the office at [phone], option #5 for questions. documented in this encounterMercy Health Anderson Hospital09-23-2024 History of Present illness Narrative* Lexus Heck APRN.CNP - 02/14/2024 8:00 AM EDT Images from the original note were not included. [facility] Virtual Visit Follow up/ Established patient visit Date of last visit : 07/27/2022 I have communicated my name and active licensure. The patient's identity and physical location wereverified at the time of this visit. Either the patient or their legal leasing representative has been informed of the risks [...] Return Visit in 6 months. Lexus Heck APRN.CORK MIXER Interval history : Here for follow up for sleep apnea management. SLEEP APNEA Sleep apnea type : JOSE RAFAEL Most Recent Apnea-Hypopnea Index (AHI): 5.3 (HSAT scored 4 %) Treatment : PAP therapy DME: Josh [place] fax: [phone] [facility] ph: [phone] PAP History: Current PAP settin-15 cm H2O. [...] are sorted in reverse-chronological order 04/12/2022 07/23/2022 [place] Sleepiness Scale Score 4 (No clinically significant [...] - Follow up 12 months. Lexus Heck APRN.CORK MIXER documented in this encounterMercy Health Anderson Hospital09-18-2024 History of Present illness Narrative* Zita Cuellar NP - 02/09/2024 8:00 AM EDT Images from the original note were not included. CHIEF COMPLAINT REASON FOR VISIT : leg pain HPI: Ariadna Haley is a 43 y.o. female who presents for [facility]. She is at home. She [...] Chronic laryngopharyngitis COVID-19 vaccine administered x 2 ([employer]) Difficulty walking Fatigue Fibromyalgia, primary GERD (gastroesophageal reflux disease) History of removal of cyst 2013 tailbone x2 HTN (hypertension) ([facility]) Hx of abnormal cervical Pap smear Hyperlipidemia ([facility]) Insulin resistance Laryngopharyngeal reflux disease Lupus ([facility]) Numbness Oral lesion Oral thrush Prediabetes Sleep [...] Depression: Not at risk (12/27/2023) Re[facility] from [facility] PHQ-2 PHQ-2 score: 1 REVIEW OF [...] patient, and coordinating care. documented in this encounterCox [id number] NoteHNO ID: [id number] Author: ALHAJI HEAD, DO Service: ? Author Type: Physician Type: Progress Notes Filed: 01/27/2024 16:54 Note Text: VIRTUAL VISIT PROGRESS NOTE This is a virtual visit using [employer] Video Visit. It required patient-provider interaction for the medical decision making as documented below. I have communicated my name and active licensure. The patient's identity and physical location were verified at the time of this visit. Either the patient or their legal leasing representative has been informed of the risks [...] of green drainage. She saw her OB/ order clerk. This was thought to be secondary to [...] SOB/WHEEZING, and NO DYSPHAG (more content not included)...[facility]09-05-2024 History of Present illness Narrative* Alhaji Head DO - 01/27/2024 10:10 AM EDT Images from the original note were not included. VIRTUAL VISIT PROGRESS NOTE This is a virtual visit using [employer] Zoom Video Visit. It required patient- provider interaction for the medical decision making as documented below. I have communicated my name and active licensure. The patient's identity and physical location wereverified at the time of this visit. Either the patient or their legal leasing representative has been informed of the risks [...] of green drainage. She saw her OB/ order clerk. This was thought to be secondary to [...] thrush Alhaji Head DO documented in this encounterMercy Health Anderson Hospital09-03-2024 Nurse Note* Margret Cuenca MA - 01/25/2024 11:30 AM EDT Patient Identification confirmed: yes. Injection given and documented on JUL per provider order. Margret Cuenca MA [facility]09-03-2024 Nurse Note* Margret Cuenca MA - 01/25/2024 11:30 AM EDT Patient Identification confirmed: yes. Injection given and documented on JUL per provider order. Margret Cuenca MA documented in this encounterMercy Health Anderson Hospital08-27-2024 History of Present illness Narrative* Arianne [...] outcomes. Aidee Quintanilla, RolandD Clinical Pharmacist, [employer] [facility] ; Pool: P [facility] 2 Pool #: [id number] Forestry Engineer Assessment Patient confirmed: Yes Med/dose confirmed: Yes Supplies needed: No supplies needed Missed doses: No Estimated days supply on hand: (At least 1 dose) Next cycle/dose due: 01/20/24 Copay amount: 0 Payment confirmed: Yes Delivery method: FedEx Signature required: Waived on patient request Delivery address: [address] [place] [address] Delivery date: 01/21/24 Questions or concerns for [...] facility-administered medications on file prior to visit. [facility] RX SPECIALTY CLINICAL ASSESSMENT - INFLAMMATORY [...] no longer tolerated. Arianne Mckinley CPhT, Inflammatory/Allergy [facility] [phone] documented in this encounterMercy Health [facility] Hospital08-21-2024 Telephone encounter Note * Telephone Encounter - Krista Braswell MA - 01/12/2024 10:45 AM EDT Pt has been notified via [employer]. [facility]08-21-2024 Miscellaneous Notes* Telephone Encounter - Krista Fonseca MA - 01/12/2024 10:45 AM EDT Pt has been notified via [employer]. * Telephone Encounter - Lynne Ni MD [...] Assoc. diagnoses: Screening-pulmonary TB documented in this encounterMercy Health Anderson Hospital08-21-2024 Telephone encounter Note * Telephone Encounter [...] above. Please process accordingly. Lynne Ni MD [facility]08-21-2024 Telephone encounter Note* Telephone Encounter - [...] Lynne Ni MD Assoc. diagnoses: Screening-pulmonary TB [facility]08-08-2024 Telephone encounter Note* Telephone Encounter - Krista Braswell MA - 12/30/2023 1:34 PM EDT Spoke to pt aware of results and recommendations. [facility]08-08-2024 Miscellaneous Notes* Telephone Encounter - Krista [...] vitamin b12 every month documented in this encounterMercy Health Anderson Hospital08-08-2024 Telephone encounter Note * Telephone Encounter [...] likely reactive, continue vitamin b12 every month [facility]08-05-2024 Telephone encounter Note* Telephone Encounter - Enma Hamm RN - 12/27/2023 12:49 PM EDT Pt informed of MM message and denies any questions, needs or concerns at this time. Appointments verified. Enma Hamm RN [facility]08-05-2024 Miscellaneous Notes* Telephone Encounter - Enma Hamm RN - 12/27/2023 12:49 PM EDT Pt informed of MM message and denies any questions, needs or concerns at this time. Appointments verified. Enma Hamm RN * Telephone Encounter - Neda Hill PA-C - 12/27/2023 12:44 PM EDT Please call and inform the patient that I reviewed her [facility] records and there is no evidence of a blood clot and she does not need to be on blood thinners. Neda Hill PA-C documented in this encounterMercy Health Anderson Hospital08-05-2024 Telephone encounter Note * Telephone Encounter - Neda Hill PA-C - 12/27/2023 12:44 PM EDT Please call and inform the patient that I reviewed her [facility] records and there is no evidence of a blood clot and she does not need to be on blood thinners. Neda Hill PA-C [facility] Work Phone: [phone] Nurse Note* Margret Cuenca MA - 12/27/2023 11:44 AM EDT Patient Identification confirmed: yes. Injection given and documented on MAR per provider order. Margret Cuenca MA [facility]08-05-2024 Nurse Note* Margret Cuenca MA - 12/27/2023 11:44 AM EDT Patient Identification confirmed: yes. Injection given and documented on MAR per provider order. Margret Cuenca MA documented in this encounterMercy Health Anderson Hospital08-05-2024 History of Present illness Narrative* Neda Hill PA-C - 12/27/2023 11:30 AM EDT Images from the original note were not included. NAME: Ariadna Haley CLINIC NO.: [id number] DATE OF SERVICE: December 27, 2023 (Liz) [...] labs 1 week before. Request records from [facility] from PE/elevated d-dimer Frequent infections [...] lower lip done 2 days ago at [facility] - awaiting results. B12 helps especially [...] injections. 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 She has been told they [...] which included preparing to see the patient, eifr-og-dtxy patient care, completing clinical documentation, obtaining and/or reviewing separately obtained history, performing a medically appropriate examination, counseling and educating the pat ient/family/caregiver, ordering medications, tests, or procedures, communicating with other HCPs (not separately reported), independently interpreting results (not separately reported), communicatingresults to the patient/family/caregiver, and care coordination (not separately reported). Neda Hill PA-C Hematology and Oncology Services Provided at: [place], [place] CC: Manuel Ferris MD [address] [facility] [address] documented in this encounterMercy Health Anderson Hospital07-22-2024 History of Present illness Narrative* Vale (Refrigeration Systems Installer)Luda - 12/13/2023 11:44 AM EDT [facility] [...] laboratory parameters, disease state markers and outcomes. Forestry Engineer Assessment Patient confirmed: Yes Med/dose confirmed: Yes Missed doses: No Estimated days supply on hand: 1 Next cycle/dose due: 12/16/23 Copay amount: 0 Payment confirmed: Yes Delivery method: FedEx Signature required: Waived on patient request Delivery address: [address] [place] [address] Delivery date: 12/17/23 Questions or concerns for [...] facility-administered medications on file prior to visit. [facility] RX SPECIALTY CLINICAL ASSESSMENT - INFLAMMATORY CONDITIONS V6: Assessment to use: Refill [facility]TY PHARMACY VACCINE INFORMATION [facility] PHARMACY TREATMENT PLAN INFORMATION Luda Vale CPhT [facility] [phone] documented in this encounterMercy Health Anderson Hospital07-08-2024 Nurse Note* Stacy Gutiérrez MA - 11/29/2023 1:47 PM EDT Patient Identification confirmed: yes. Injection given and documented on JUL per provider order. Stacy Gutiérrez MA [facility]07-08-2024 Nurse Note* Stacy Gutiérrez MA - 11/29/2023 1:47 PM EDT Patient Identification confirmed: yes. Injection given and documented on JUL per provider order. Stacy Gutiérrez MA documented in this encounterMercy Health Anderson Hospital07-05-2024 Telephone encounter Note * Telephone Encounter - Katherin Schneider RN - 11/26/2023 11:34 AM EDT Please sign pended script Maryam Schneider RN [facility]07-05-2024 Miscellaneous Notes* Telephone Encounter - Katherin Schneider RN - 11/26/2023 11:34 AM EDT Please sign pended script Maryam Schneider RN documented in this encounterMercy Health Anderson Hospital06-24-2024 History of Present illness Narrative* Aidee Quintanilla [facility] - 11/15/2023 1:00 PM EDT [facility] [...] laboratory parameters, disease state markers and outcomes. Forestry Engineer Assessment Patient confirmed: Yes Med/dose confirmed: Yes Missed doses: No Estimated days supply on hand: 1 Next cycle/dose due: 11/18/23 Copay amount: 0 Payment confirmed: Yes Delivery method: FedEx Signature required: Waived on patient request Delivery address: [address] [place] [address] [address]. [address] [place] Delivery date: 11/17/23 Questions or concerns for [...] facility-administered medications on file prior to visit. [facility] Visit Assessment - Inflammatory [...] Yes Aidee Quintanilla, PharmD Clinical Pharmacist, [employer] [facility] ; Pool: P [facility] Pool #: [id number] documented in this encounterMercy Health Anderson Hospital06-20-2024 Telephone encounter Note * Telephone Encounter [...] above. Please process accordingly. Lynne Ni MD [facility]06-20-2024 Miscellaneous Notes* Telephone Encounter - Lynne [...] 3 months 06/02/24 06/03/23 08/31/23 Auth. provider: eVra Najera MD Assoc. diagnoses: Megaloblastic anemia due [...] [SQVITD] 12/04/23 09/03/24 09/04/23 Auth. provider: Lynne iN MD Assoc. diagnoses: Vitamin D deficiency COMPLETE [...] FERRITIN [SQFERR] 12/02/23 09/08/24 09/09/23 Auth. provider: Vrea Najera MD Assoc. diagnoses: Megaloblastic anemia due [...] High total serum IgM documented in this encounterMercy Health Anderson Hospital06-20-2024 Telephone encounter Note * Telephone Encounter [...] vitamin B12 deficiency, High total serum IgM [facility]06-06-2024 Telephone encounter Note* Telephone Encounter - Karina Morales RN - 10/28/2023 1:33 PM EDT Pt read [employer] message. [facility]06-06-[facility]24 Miscellaneous Notes* Telephone Encounter - Karina Morales RN - 10/28/2023 1:33 PM EDT Pt read [employer] message. * Telephone Encounter - Lynne Ni [...] Warm Dr.Tsai oziel :) documented in this encounterMercy Health Anderson Hospital06-06-2024 Telephone encounter Note * Telephone Encounter [...] feel better soon! Warm Dr.Tsai oziel :) [facility]06-05-[facility] Nurse Note* Margret Cuenca MA - 10/27/2023 2:43 PM EDT Patient Identification confirmed: yes. Injection given and documented on JUL per provider order. Margret Cuenca MA [facility]06-05-2024 Nurse Note* Margret Cuenca MA - 10/27/2023 2:43 PM EDT Patient Identification confirmed: yes. Injection given and documented on JUL per provider order. Margret Cuenca MA documented in this encounterMercy Health Anderson Hospital05-14-2024 History of Present illness Narrative* Lynne [...] visit. Either the patient or their legal leasing representative has been informed of the risks [...] measures, may consider osteoporosis treatment if on snf steroids/abnormal bmd, take vitamin D script if [...] neurology/on metoprolol for POTs, avoid aggravating triggers, rat exterminator pain recommendations per primary care provider/pain clinic/patient [...] neurology/on metoprolol for POTs, avoid aggravating triggers, snf pain recommendations per primary care provider/pain clinic/patient [...] nausea, vomiting, night sweats,scalp tenderness, visual changes, henrandez, bowel/bladder changes, or other complaints. Last visit [...] Due for eye exam. Labs sent to [facility]/completed in 06/2021 (no results faxed to office, but patient pulled up results on her phone). Chronic current pain in neck, flank area, mid back, knees, legs, arms, all over pain. Better with lyrica 75mg 3times a day. Reports pain -12/31. Couple hrs AM stiffness. COVID vaccine [place] 09/28/20, 10/19/20, 05/26/21. Feels safe at home. [...] COVID-19 original vaccine, age 12+ yr, monovalent (ExpertFlyer - PURPLE TOP) 09/28/2020 10/19/2020 05/26/2021 COVID-19 vaccine, age 12+ yr, 2022- season (ExpertFlyer) 02/23/2023 COVID-19 vaccine, age 12+ yr, bivalent (ExpertFlyer) 02/08/2022 Pneumovax no Flu shot no Tetanus [...] (33);NL cbc, cmp, negative hla b27; Outside [place] 06/2021 low vitamin D 16, vitamin b12-307;high [...] measures, may consider osteoporosis treatment if on rat exterminator steroids/abnormal bmd, take vitamin D script once [...] neurology/on metoprolol for POTs, avoid aggravating triggers, rat exterminator pain recommendations per primary care provider/pain clinic/patient [...] (200mg) daily with a meal Please see artillery meteorological man every 6-12months while on Hydroxychloroquine. Start [...] touching your toes, sit-ups, using row machine snf pain recommendations per primary care provider/pain clinic [...] video & audio (virtual) or phone or orwb-jm-bwfz patient care, completing clinical documentation, obtaining and/or [...] Workers' Compensation? No Do you need an torch operator? No [facility] MYCHART ZOOM MESSAGE Question 2023 11:04 PM [...] 3 (WITHIN +/- 5) documented in this encounterMercy Health [facility] Hospital05-09-2024 Nurse Note* Renea Schneider MA - 09/30/2023 10:53 AM EDT Patient Identification confirmed: yes. Injection given and documented on JUL per provider order. Renea Schneider MA [facility]05-01-2024 Evaluation note* Author [facility] Authored September 22, 2023 2:55pm [...] monitor symptoms [facility] Work Phone: 1(330) 284-676504-18-2024 Instructions* Patient Instructions* Vera Najera MD - 09/09/2023 4:47 PM EDT Follow up in 13 Weeks - labs 1 week before. B12 shot every 4 weeks. Continue Folic acid. documented in this encounterMercy Health Anderson Hospital04-18-2024 History of Present illness Narrative* Vera Najera MD - 09/09/2023 4:30 PM EDT NAME: Ariadna Haley [facility] NO.: [id number] DATE OF SERVICE: September 09, 2023 ([place]) Some elements in this clinic note that are critical to medical decision making have been carefully reviewed and included from a prior clinic note dated: June 10, 2023 (Marquis) Referring Provider: Dr. Manuel Ferris Additional Clinicians involved in Ariadna Haley's care: VIRTUAL VISIT PROGRESS NOTE This is a virtual visit using [place] [employer]. It required patient- provider interaction for the medical decision making as documented below. I have communicated my name and active licensure. The patient's identity and physical location wereverified at the time of this visit. Either the patient or their legal leasing representative has been informed of the risks [...] lower lip done 2 days ago at [facility] - awaiting results. B12 helps especially [...] injections. 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 She has been told they [...] ECOG PERFORMANCE STATUS: 0 PHYSICAL EXAMINATION: [facility] There is no height or [...] CPE Hematology and Oncology Services Provided at: [place], [place] CC: Manuel Ferris MD [address] [facility] [address] documented in this encounterBarbara Ville [address]11-15-2024 Miscellaneous Notes* Telephone Encounter - Maynor Bryson MA - 09/06/2023 7:21 AM EDT patient has viewed the [employer] message per [employer]. * Telephone Encounter - Lynne Ni MD - 09/04/2023 6:30 PM EDT Please Call patient if CardioLogshart note not read to review results/released to [...] accordingly. Lynne Ni MD documented in this [facility]04-09-2024 Nurse Note* Margret Cuenca MA - 08/31/2023 10:35 AM EDT Patient Identification confirmed: yes. Injection given and documented on JUL per provider order. Margret Cuenca MA documented in this [facility]04-01-2024 Nurse Note* Renea Schneider MA - 09/30/2023 10:53 AM EDT Patient Identification confirmed: yes. Injection given and documented on JUL per provider order. Renea Schneider MA documented in this [facility]03-14-2024 Nurse Note* Margret Cuenca - 08/05/2023 11:16 AM EDT Patient Identification confirmed: yes. Injection given and documented on JUL per provider order. Margret Cuenca documented in this [facility]02-20-2024 Nurse Note* Margret Cuenca - 07/13/2023 12:01 PM EST Patient Identification confirmed: yes. Injection given and documented on JUL per provider order. Margret Cuenca documented in this [facility]02-20-2024 History of Present illness Narrative* Lois [...] record indicating having had cardiac catheterization in [place] 3 years ago which was normal. I have the report available for my review. [facility] [...] , Rfl: ergocalciferol (Vitamin D-2) 1.25 MG (31919 UT) capsule, Take 1 capsule (50,000 Units) [...] exam, discussion and plan. documented in this encounterPark[facility] Work Phone: 1(115) 117-514402-20-2024 Instructions* Patient Instructions* Lila Tejeda LPN - [...] time of your visit. documented in this encounterParkview Health [facility] Work Phone: 1(338) 947-193602-13-2024 History of Present illness Narrative* Kade Richardson [...] , Rfl: ergocalciferol (Vitamin D2) 1.25 MG (09930 UT) capsule, Take 50,000 Units by mouth [...] Chronic laryngopharyngitis COVID-19 vaccine administered x 2 ([place]ukey) History of removal of cyst 2013 tailbone [...] reflexes: Stu's absent. Ankle clonus absent. Coordination Rewehc-cs-ehyf, rapid alternating movements and lwnn-xk-urpz normal bilaterally without dysmetria. Gait Normal casual, toe, heel and tandem gait. Romberg is absent. Assessment/Plan Diagnoses and all orders for this visit: Autoimmune disease ([facility]) - Protein electrophoresis, serum; Future - Protein [...] Lyrica 100 mg TID. She is on dpinguslsq05 mg once daily. Increase prednisone 10 mg BID for 10 days. documented in this encounterCox [id number] History of Present illness Narrative* Michelle Jasmine, SALES APPRENTICE-CORK MIXER - 06/09/2023 8:30 AM EST Ariadna Haley is a 42 y.o. female that presents to the office today for new patient evaluation asself referral for palpitations and elevated heart rates. She has a PMH of HTN, HLD, tachycardia, anemia, JOSE RAFAEL with CPAP compliance, lupus, autonomic dysfunction, arthritis, chronic back pain. She has undergone cardiac workup in the past in [place] as noted below. She also states that she follows withNeurology for possible POTS syndrome. Admits to daily tobacco use, 1 pack of cigarettes per day. Denies vaping, ETOH, recreational drugs. Admits to drinking approximately 1 pot of coffee per day. Denies daily exercise. 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 Family history negative [...] , Rfl: ergocalciferol (Vitamin D-2) 1.25 MG (33537 UT) capsule, Take 1 capsule (50,000 Units) [...] Anemia, unspecified Anxiety Autonomic dysfunction Depression, recurrent ([facility]) Discoid lupus erythematosus Chronic bilateral low back pain with bilateral sciatica Hyperlipidemia Obesity, Class III, BMI 40-49.9 (morbid obesity) ([facility]) Obstructive sleep apnea syndrome Arthritis Tachycardia Vitamin [...] to prepare this document. documented in this [facility] Work Phone: 1(551) 335-268201-03-2024 Instructions* Patient Instructions* Christie Phan MD - 05/26/2023 5:43 PM EST Images from the original note were not included. [email or web address]/tofu-bolognese/ https://nutritionstudies.org/qab-ki-jqzruravy-kufmksqb-vv-rwxps-b-keaxk-hbse-randee om-erklx-qnkpkowtv/ https://www.Small Demons/blog/plantbasedkids https://[employer]/gozst-ivmfy-qpqg-for-kids/ https://Tynt/vxt-jz-bommmsmmdr-rhvj-vwun-ku-x-vsnvo-dlkig-diet/ WHAT TO EAT? Breakfast: Overnight Oats Base ingredients: 1/3 cup rolled oats, 1/3 cup plain almond milk, 1tsp kyle seeds. Optional add-ins: cinnamon, flax seeds, honey or maple syrup, nut butter, chopped nuts. Toppings: Any fresh fruit chopped. Mix together and place in refrigerator. Can make 5 at a time for the whole week. Homemade fresh oatmeal. Can also make in the crockpot. North Korean muffin/almond butter topped with fresh berries North Korean muffin, cooked egg/egg white, tomato, thin slice equatorial guinean cheese Fresh berries, hard boiled egg, whole wheat toast Plain yogurt topped with berries, unsalted nuts, drizzle of honey Whole grain toast/North Korean muffin topped with mashed avocado and tomatoes Lunch: Dinner leftovers packed in Tupperware, side of fruit Salad mixture topped with a protein (chick breast/tuna/hard boiled egg/beans), dressing and side offruit Dinner - Refer to plate media planner / buyer pictures to help select foods and portion ratios of protein, vegetables/starches. Keep it simple and rotate your favorite meals. Sheet nix meals Soups Grilled protein/vegetables/side of starch (plate media planner / buyer picture) Stir can with protein, mixed vegetables, and riced cauliflower or portion controlled whole grain rice. Make your own bowls - Vietnamese/Sao Tomean/ theme Wanchese with Zoodles (spiralized vegetable noodles). Roasted vegetable wraps Alter traditional recipes to reflect HIGH QUALITY ingredients in the right QUANTITIES. Snacks - portion controlled: Raw veggies (can have with hummus, mashed avocado, salsa). Unsalted nuts Fruit (1 serving). (optional side of peanut butter) Air pop popcorn [place]erson and low fat equatorial guinean cheese rolled up String cheese Protein balls (mix rolled oats, nut butter, flax seeds, dash almond milk). Beverages: Water Coffee, Hot tea Unsweetened ice tea EATING OUT: Research menu online, include nutritional information. Make your order decision before getting to restaurant. Stick to recommended portions (plate media planner / buyer picture). Ask for substitutions or modifications. Consider [...] baked potato, sprouted grain bread, chick peas https://www.ZappRx.com/article/8203347/gybggvdnsspav-lafg-qlst-for-beginners / https://www.eatingSpinal USA.com/category/4274/syxgjqbuuqblq-ypem-tlfkov/ https://www.eatingSpinal USA.com/category/4300/jlcfbznvjowgi-ihpj-freb-plans/ My current favorite cookbooks are documented in this encounterMercy Health [facility]01-03-2024 History of Present illness Narrative* Christie Phan MD - 05/26/2023 5:00 PM EST Images from the original note were not included. [facility] Follow-Up Appointment [...] to work towards a [facility] diet Plan Diagnoses and all orders [...] the date of the service which included ndxn-jb-quqc patient care, completing clinical documentation, performing a medically appropriate examination, counseling and educating the patient/family/caregiver, and ordering medications, tests, or procedures. Christie Phan MD, MA, [facility] Lifestyle Medicine Specialist documented in this encounterMercy Health [facility] Hospital12-04-2023 Miscellaneous Notes* Telephone Encounter - Renate Lawrence MA - 04/26/2023 5:26 PM EST Medication pending with new pharmacy information. documented in this encounterMercy Health Anderson Hospital12-04-2023 History of Present illness Narrative* Christie Phan MD - 04/26/2023 4:15 PM EST Images from the original note were not included. [facility] Virtual Follow-Up [...] the date of the service which included lfzk-tv-dbfe patient care, completing clinical documentation, performing a medically appropriate examination, counseling and educating the patient/family/caregiver, and ordering medications, tests, or procedures. I have communicated my name and active licensure. The patient's identity and physical location wereverified at the time of this visit. Either the patient or their legal leasing representative has been informed of the risks and benefits of -- and alternatives to -- treatment through a remote evaluation andconsents to proceed with the evaluation remotely. Christie Phan MD, MA, [facility] Lifestyle Medicine Specialist documented in this encounterMercy Health [facility] Hospital12-04-2023 Nurse Note* Renate Lawrence MA - 04/26/2023 2:46 PM EST Spoke to Ariadna Haley, confirmed patient is registered on [employer] and is prepared for their appointment. Confirmed the patient has updated medications, allergies, and questionnaires via [employer]. Informed patient if there is an issue with the connection, provider will send the patient a secure link. If provider is running late, patient should remain connected to the visit. Patient verbalized understanding. documented in this [facility]11-30-2023 Miscellaneous Notes* Telephone Encounter - Enma Hamm, RN - 04/22/2023 3:48 PM EST Pt called for Iron results; possible need for transfusion. Pt aware no need for iron infusion at this time. Enma Hamm, RN documented in this [facility]11-24-2023 History of Present illness Narrative* Kenzie Shannon - 04/16/2023 10:55 AM EST Patient Identification confirmed: yes. Injection given and documented on JUL per provider order. Kenzie Shannon documented in this [facility] History of Present illness Narrative* Kenzie Shannon - 03/19/2023 11:06 AM EDT Patient Identification confirmed: yes. Injection given and documented on JUL per provider order. Kenzie Shannon documented [facility] History of Present illness Narrative* Marija Ziegler - 03/16/2023 10:13 AM EDT CMN RECEIVED BY [employer] VIA FAX, COMPLETED, AND PLACED IN PROVIDER MAILBOX FOR SIGNATURE On 2022 By Marija Ziegler Plastic Tool Maker II. [employer] SENDING CMN: JOSH SIGNED AND DATED CMN, FAXED TO DME & CONFIRMATION PAGE RECEIVED: 03.24.23 documented in this [facility] History of Present illness Narrative* Beatriz [...] LPN In Department: RHEUMATOLOGY documented in this encounterMer[facility]10-18-2023 Miscellaneous Notes* Telephone Encounter - Christie Phan MD - 03/10/2023 2:18 PM EDT Spoke with patient. We stopped her trulicity because of side effects. She only took the cymbalta for a week. She will restart and we will see how she is doing in 2 months. Have also ordered insulin labs to check for insulin resistance. documented in this encounterMercy Health [facility] Hospital10-09-2023 Miscellaneous Notes* Telephone Encounter - Lynne Ni MD - 03/01/2023 3:27 PM EDT For chart: Eye exam 02/26/23 no ocular complication related to medication. * Telephone Encounter - Beatriz Sanchez LPN - 03/01/2023 2:38 PM EDT [facility] from [facility] Placed on your desk for review. documented in this encounterMercy Health Anderson Hospital09-29-2023 Nurse Note* Radha Kebede MA - 02/19/2023 11:48 AM EDT Patient Identification confirmed: yes. Injection given and documented on JUL per provider order. Radha Schofield MA documented in this encounterMercy Health Anderson Hospital09-29-2023 Instructions* Patient Instructions* Vera Najera MD - 02/19/2023 11:40 AM EDT B12 shot today and every 4 weeks. Continue Folic acid. Follow up in 8 Weeks - labs 1 week before. documented in this encounterMercy Health Anderson Hospital09-29-2023 History of Present illness Narrative* Vera Najera MD - 02/19/2023 11:32 AM EDT Images from the original note were not included. AMBULATORY TELEPHONE VISIT Ariadna Haley has consented to this telephone encounter. Persons Present: Patient and myself Chief Complaint/Reason: Anemia; To review recent blood work. HPI: Total Time Spent: 21 minutes Rebekah Rojas APRN.CORK MIXER NAME: Ariadna Haley CLINIC NO.: [id number] DATE OF SERVICE: February 19, 2023 (Marquis) [...] lower lip done 2 days ago at [facility] - awaiting results. B12 helps especially [...] injections. 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 She has been told they [...] but decreasing. Initial Visit, March 04, 2022: Arianda Haley presents today Hematology and Oncology evaluation. [...] which included preparing to see the patient, bnub-gn-dxgl patient care, completing clinical documentation, performing a medically appropriate examination, counseling and educating the patient/family/caregiver, ordering medications, tests, or p rocedures, and independently interpreting results (not separately reported). Vera Najera MD, CPE Hematology and Oncology Services Provided at: [place], [place] CC: Manuel Ferris MD [address] [facility] [address] documented in this encounterMercy Health Anderson Hospital09-26-2023 Miscellaneous Notes* Telephone Encounter - Lynne [...] INJECTION TEACHING 03/11/2023 7:30 AM [facility] VIDEO SPEC EST 08/12/2023 9[facility] [facility] Last Ophthalmology Check for Plaquenil (Hydroxychloroquine) [...] diagnoses: Vitamin D deficiency documented in this encounterMercy Health Anderson Hospital09-18-2023 Miscellaneous Notes* Telephone Encounter - AvajabariMirela - 02/08/2023 11:12 AM EDT Spoke with patient Will get labs done when she does labs in Dec for Dre/Onc Mailed orders for DXA to pt so she can go to [facility] Pre cert Benlyst Scheduled Teaching visit [...] density (1st time) patient requests order for [place] Please schedule follow up office visit for [...] Ni MD documented in this encounterMercy Health Anderson Hospital09-14-2023 History of Present illness Narrative* Carlene Rendon - 02/04/2023 9:31 AM EDT [facility](s) for Benlysta from Dr. Ni. Benefits investigation was conducted, indicating that a prior authorization is required by patients plan with [facility]. Encounter will be updated once prior authorization has been submitted by [facility]. Carlene Rendon CPhT [facility], Inflammatory P: [phone] F: [phone] documented in this encounterMercy Health Anderson Hospital09-14-2023 History of Present illness Narrative* Lynne [...] visit. Either the patient or their legal leasing representative has been informed of the risks [...] neurology/on metoprolol for POTs, avoid aggravating triggers, rat exterminator pain recommendations per primary care provider/pain clinic/patient [...] Due for eye exam. Labs [facility]/completed in 06/2021 (no results faxed to office, but patient pulled up results on her phone). Chronic current pain in neck, flank area, mid back, knees, legs, arms, all over pain. Better with lyrica 75mg 3times a day. Reports pain 4-12/31. Couple hrs AM stiffness. COVID vaccine Keukey 09/28/20, 10/19/20, 05/26/21. Feels safe at home. [...] pain: yes H/o precedent/frequent infection(s): as above Enthesopathy/Houston's/heel/plantar tenderness: hands random painful/tingling Skin thickening, psoriasis, [...] COVID-19 original vaccine, age 12+ yr, monovalent (ExpertFlyer - PURPLE TOP) 09/28/2020 10/19/2020 05/26/2021 COVID-19 vaccine, age 12+ yr, bivalent (ExpertFlyer) 02/08/2022 Pneumovax no Flu shot no Tetanus [...] (33);NL cbc, cmp, negative hla b27; Outside [place] 06/2021 low vitamin D 16, vitamin b12-307;high [...] measures, may consider osteoporosis treatment if on rat exterminator steroids/abnormal bmd, take vitamin D script if [...] neurology/on metoprolol for POTs, avoid aggravating triggers, rat exterminator pain recommendations per primary care provider/pain clinic/patient currently declined cymbalta/lyrica, see ortho, prn brace, start fall precautions, answered all questions and concerns, patient voiced understanding. RECOMMENDATION/PLAN: [facility] on 02/04/23 DXA-AXIAL SKELETON DXA-FOREARM SKELETON [...] (200mg) daily with a meal Please see artillery meteorological man every 6-12months while on Hydroxychloroquine. Start [...] touching your toes, sit-ups, using row machine rat exterminator pain recommendations per primary care provider/pain clinic [...] video & audio (virtual) or phone or setq-wf-ycfe patient care, completing clinical documentation, obtaining and/or [...] cc Gay Enciso CNP;Dr.Douglas Sai Ferris MD [facility] INTAKE QUESTIONNAIRE Question [...] Workers' Compensation? No Do you need an torch operator? No [facility] MYCHART ZOOM MESSAGE Question 02/02/2023 10:32 PM [...] SLAQ Score (range: 0 - 47) 24 [facility] PROVIDER UNDERSTANDING CURRENT HEALTH RHEUMATOLOGY Question 02/02/2023 [...] < or = 5) documented in this encounterMercy Health Anderson Hospital09-14-2023 Instructions* Patient Instructions* Lynne Ni MD [...] (200mg) daily with a meal Please see artillery meteorological man every 6-12months while on Hydroxychloroquine. azathioprine [...] touching your toes, sit-ups, using row machine rat exterminator pain recommendations per primary care provider/pain clinic [...] your usual activities immediately. documented in this encounterMercy Health Anderson Hospital09-05-2023 Miscellaneous Notes* Telephone Encounter - Maynor Bryson MA - 01/26/2023 7:46 AM EDT patient has viewed the [employer] message per [employer]. * Telephone Encounter - Lynne Ni MD - 01/24/2023 8:04 PM EDT Please Call patient if Mirifice note not read to review results/released to [...] Ni MD documented in this encounterMercy Health Anderson Hospital09-01-2023 Nurse Note* Radha Kebede MA - 01/22/2023 12:17 PM EDT Patient Identification confirmed: yes. Injection given and documented on JUL per provider order. Radha Schofield MA documented in this encounterMercy Health Anderson Hospital08-22-2023 Miscellaneous Notes* Telephone Encounter - Christie [...] above prescription(s) to electronically send to [facility] pharmacy. Milagro Mendiola MA documented in this encounterMercy Health Anderson Hospital08-11-2023 History of Present illness Narrative* Misty Nelson MD - 01/01/2023 10:51 AM EDT VIRTUAL VISIT PROGRESS NOTE This is a virtual visit using Mirifice video visit. It required patient-provider interaction for themedical decision making as documented below. I have communicated my name and active licensure. The patient's identity and physical location wereverified at the time of this visit. Either the patient or their legal leasing representative has been informed of the risks [...] otitis or sinusitis No pneumonia She sees lsw and was diagnosed with lupus She is on Plaquenil, azathioprine Prednisone 10mg once daily for the past year; every few months she gets treated with higher doses of prednisone for flares of her symptoms The medications seem to help the body aches She saw the stump shooter Treated with B12 and folic acid We [...] visit. Misty Nelson MD documented in this encounterMercy Health Anderson Hospital07-28-2023 Miscellaneous Notes* Telephone Encounter - Rebekah Rojas APRN.CNP - 12/18/2022 10:48 AM EDT Spoke with patient this morning, 12/18/2022. Rebekah Rojas APRN.TRUE * Telephone Encounter - Lidia Argueta RN - 12/18/2022 9:31 AM EDT Pt called commercial pest control representative service last evening stating she was suppose to have a phone call with Rebekah at 330 and never received a call. Pt is still waiting (536 pm 12/17/22). Please advise Lidia Argueta RN documented in this encounterMercy Health Anderson Hospital07-28-2023 History of Present illness Narrative* Rebekah [...] Total Time Spent: 21 minutes Rebekah Rojas APRN.CORK MIXER NAME: Ariadna Haley CLINIC NO.: [id number] DATE OF SERVICE: October 22, 2022 (Marquis) [...] lower lip done 2 days ago at [facility] - awaiting results. B12 helps especially [...] injections. 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 She has been told they [...] which included preparing to see the patient, widn-bi-hyuc patient care, completing clinical documentation, performing a medically appropriate examination, counseling and educating the patient/family/caregiver, ordering medications, tests, or p rocedures, and independently interpreting results (not separately reported). Vera Najera MD, CPE Hematology and Oncology Services Provided at: [place], [place] CC: Manuel Ferris MD [address] [facility] [address] documented in this encounterMercy Health Anderson Hospital07-26-2023 Miscellaneous Notes* Telephone Encounter - Pamella Bettencourt RN - 12/16/2022 1:14 PM EDT Pt notified and verbalizes understanding. Clerical: Please change tomorrow's appointment to a phone visit at the end of Rebekah's day. Preferred number is [phone]. In addition, pt will be in next [...] schedule? Pamella Bettencourt RN documented in this encounterMercy Health Anderson Hospital07-23-2023 Miscellaneous Notes* Telephone Encounter - Vera [...] advise Enma Hamm RN documented in this encounterMercy Health Anderson Hospital07-04-2023 Miscellaneous Notes* Telephone Encounter - Lynne [...] Ni MD documented in this encounterMercy Health Anderson Hospital06-29-2023 Nurse Note* Margret Cuenca - 11/19/2022 11:01 AM EDT Patient Identification confirmed: yes. Injection given and documented on JUL per provider order. Margret Cuenca documented in this encounterMercy Health Anderson Hospital06-01-2023 Nurse Note* Stacy Gutiérrez Ma - 10/22/2022 11:50 AM EDT Patient Identification confirmed: yes. Injection given and documented on JUL per provider order. Stacy Gutiérerz Ma [facility] Instructions* Patient Instructions* Vera Najera MD - 10/22/2022 11:43 AM EDT B12 Shot today and every 4 weeks. Continue Folic acid. Follow up in 8 Weeks - labs 1 week before. documented in this encounterMercy Health Anderson Hospital06-01-2023 History of Present illness Narrative* Vera Najera MD - 10/22/2022 11:35 AM EDT Images from the original note were not included. NAME: Jose Carlosfrancisco javierAriadna [facility] NO.: [id number] DATE OF SERVICE: October 22, 2022 (Marquis) [...] lower lip done 2 days ago at [facility] - awaiting results. B12 helps especially [...] injections. 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 She has been told they [...] which included preparing to see the patient, emqo-xm-cgvu patient care, completing clinical documentation, performing a medically appropriate examination, counseling and educating the patient/family/caregiver, ordering medications, tests, or p rocedures, and independently interpreting results (not separately reported). Vera Najera MD, CPE Hematology and Oncology Services Provided at: [place], [place] CC: Manuel Ferris MD [address] [facility] [address] documented in this encounterMercy Health Anderson Hospital05-04-2023 Nurse Note* Stacy Gutiérrez Ma - 09/24/2022 10:22 AM EDT Patient Identification confirmed: yes. Injection given and documented on JUL per provider order. Stacy Gutiérrez Ma documented in this encounterMercy Health Anderson Hospital04-18-2023 Miscellaneous Notes* Telephone Encounter - Stacy Hernandez - 09/08/2022 2:27 PM EDT Pharmacy-Reviewed Medication History Patient Name:.Ariadna Haley : 1980 Patient Contact Attempt: First attempt Adherence Packing Program Accepted? No, patient does not wish to participate. Patient is not eligible for adherence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 05/31/2014 07/06/2016 documented as of this encounter (statuses as of 03/06/2022) [address]08-2015 History of Past illness Narrative* Problem Noted Date Resolved Date Obesity (BMI 30-39.9) 05/31/2014 07/06/2016 documented as of this encounter (statuses as of 03/09/2022) [address]08-2015 History of Past illness Narrative* Problem Noted Date Resolved Date Obesity (BMI 30-39.9) 05/31/2014 07/06/2016 documented as of this encounter (statuses as of 03/10/2022) [address]08-2015 History of Past illness Narrative* Problem Noted Date Resolved Date Obesity (BMI 30-39.9) 05/31/2014 07/06/2016 documented as of this encounter (statuses as of 03/10/2022) [address]08-2015 History of Past illness Narrative* Problem Noted Date Resolved Date Obesity (BMI 30-39.9) 05/31/2014 07/06/2016 documented as of this encounter (statuses as of 03/12/2022) [address]08-2015 History of Past illness Narrative* Problem Noted Date Resolved Date Obesity (BMI 30-39.9) 05/31/2014 07/06/2016 documented as of this encounter (statuses as of 03/18/2022) [address]08[address]2015 History of Past illness Narrative* Problem Noted Date Resolved Date Obesity (BMI 30-39.9) 05/31/2014 07/06/2016 documented as of this encounter (statuses as of 03/22/2022) [address]08[address]2015 History of Past illness Narrative* Problem Noted Date Resolved Date Obesity (BMI 30-39.9) 05/31/2014 07/06/2016 documented as of this encounter (statuses as of 03/30/2022) [address]08[address]2015 History of Past illness Narrative* Problem Noted Date Resolved Date Obesity (BMI 30-39.9) 05/31/2014 07/06/2016 documented as of this encounter (statuses as of 03/30/2022) [address]08[address]2015 History of Past illness Narrative* Problem Noted Date Resolved Date Obesity (BMI 30-39.9) 05/31/2014 07/06/2016 documented as of this encounter (statuses as of 04/03/2022) [address]08[address]2015 History of Past illness Narrative* Problem Noted Date Resolved Date Obesity (BMI 30-39.9) 05/31/2014 07/06/2016 documented as of this encounter (statuses as of 04/03/2022) [address]08[address]2015 History of Past illness Narrative* Problem Noted Date Resolved Date Obesity (BMI 30-39.9) 05/31/2014 07/06/2016 documented as of this encounter (statuses as of 04/22/2022) [address]08[address]2015 History of Past illness Narrative* Problem Noted Date Resolved Date Obesity (BMI 30-39.9) 05/31/2014 07/06/2016 documented as of this encounter (statuses as of 04/24/2022) [address]08[address]2015 History of Past illness Narrative* Problem Noted Date Resolved Date Obesity (BMI 30-39.9) 05/31/2014 07/06/2016 documented as of this encounter (statuses as of 05/05/2022) [address]08[address]2015 History of Past illness Narrative* Problem Noted Date Resolved Date Obesity (BMI 30-39.9) 05/31/2014 07/06/2016 documented as of this encounter (statuses as of 05/05/2022) [address]08[address]2015 History of Past illness Narrative* Problem Noted Date Resolved Date Obesity (BMI 30-39.9) 05/31/2014 07/06/2016 documented as of this encounter (statuses as of 05/05/2022) [address]08[address]2015 History of Past illness Narrative* Problem Noted Date Resolved Date Obesity (BMI 30-39.9) 05/31/2014 07/06/2016 documented as of this encounter (statuses as of 05/26/2022) [address] History of Past illness Narrative* Problem Noted Date Resolved Date Obesity (BMI 30-39.9) 05/31/2014 07/06/2016 documented as of this encounter (statuses as of 05/27/2022) [address]08[address]2015 History of Past illness Narrative* Problem Noted Date Resolved Date Obesity (BMI 30-39.9) 05/31/2014 07/06/2016 documented as of this encounter (statuses as of 07/22/2022) [address]08[address]2015 History of Past illness Narrative* Problem Noted Date Resolved Date Obesity (BMI 30-39.9) 05/31/2014 07/06/2016 documented as of this encounter (statuses as of 07/25/2022) [address]08[address]2015 History of Past illness Narrative* Problem Noted Date Resolved Date Obesity (BMI 30-39.9) 05/31/2014 07/06/2016 documented as of this encounter (statuses as of 07/27/2022) [address]08[address]2015 History of Past illness Narrative* Problem Noted Date Resolved Date Obesity (BMI 30-39.9) 05/31/2014 07/06/2016 documented as of this encounter (statuses as of 07/28/2022) [address]08[address]2015 History of Past illness Narrative* Problem Noted Date Resolved Date Obesity (BMI 30-39.9) 05/31/2014 07/06/2016 documented as of this encounter (statuses as of 08/10/2022) [address]08[address]2015 History of Past illness Narrative* Problem Noted Date Resolved Date Obesity (BMI 30-39.9) 05/31/2014 07/06/2016 documented as of this encounter (statuses as of 08/18/2022) [address]08[address]2015 History of Past illness Narrative* Problem Noted Date Resolved Date Obesity (BMI 30-39.9) 05/31/2014 07/06/2016 documented as of this encounter (statuses as of 08/19/2022) [address]08[address]2015 History of Past illness Narrative* Problem Noted Date Resolved Date Obesity (BMI 30-39.9) 05/31/2014 07/06/2016 documented as of this encounter (statuses as of 08/27/2022) [address]08[address]2015 History of Past illness Narrative* Problem Noted Date Resolved Date Obesity (BMI 30-39.9) 05/31/2014 07/06/2016 documented as of this encounter (statuses as of 08/29/2022) [address]08[address]2015 History of Past illness Narrative* Problem Noted Date Resolved Date Obesity (BMI 30-39.9) 05/31/2014 07/06/2016 documented as of this encounter (statuses as of 08/31/2022) [address]08[address]2015 History of Past illness Narrative* Problem Noted Date Resolved Date Obesity (BMI 30-39.9) 05/31/2014 07/06/2016 documented as of this encounter (statuses as of 09/08/2022) [address]08[address]2015 History of Past illness Narrative* Problem Noted Date Resolved Date Obesity (BMI 30-39.9) 05/31/2014 07/06/2016 documented as of this encounter (statuses as of 09/08/2022) [address]08[address]2015 History of Past illness Narrative* Problem Noted Date Resolved Date Obesity (BMI 30-39.9) 05/31/2014 07/06/2016 documented as of this encounter (statuses as of 09/24/2022) [address]08[address]2015 History of Past illness Narrative* Problem Noted Date Resolved Date Obesity (BMI 30-39.9) 05/31/2014 07/06/2016 documented as of this encounter (statuses as of 10/22/2022) [address]08[address]2015 History of Past illness Narrative* Problem Noted Date Resolved Date Obesity (BMI 30-39.9) 05/31/2014 07/06/2016 documented as of this encounter (statuses as of 10/25/2022) [address]08[address]2015 History of Past illness Narrative* Problem Noted Date Resolved Date Obesity (BMI 30-39.9) 05/31/2014 07/06/2016 documented as of this encounter (statuses as of 11/19/2022) [address]08[address]2015 History of Past illness Narrative* Problem Noted Date Resolved Date Obesity (BMI 30-39.9) 05/31/2014 07/06/2016 documented as of this encounter (statuses as of 11/25/2022) [address]08[address]2015 History of Past illness Narrative* Problem Noted Date Diagnosed Date Resolved Date Obesity (BMI 30-39.9) 05/31/20142016 documented as of this encounter (statuses as of 12/08/2022) [address]08[address]2015 History of Past illness Narrative* Problem Noted Date Diagnosed Date Resolved Date Obesity (BMI 30-39.9) 05/31/20142016 documented as of this encounter (statuses as of 12/18/2022) [address]08[address]2015 History of Past illness Narrative* Problem Noted Date Diagnosed Date Resolved Date Obesity (BMI 30-39.9) 05/31/20142016 documented as of this encounter (statuses as of 12/18/2022) [address]08[address]2015 History of Past illness Narrative* Problem Noted Date Diagnosed Date Resolved Date Obesity (BMI 30-39.9) 05/31/20142016 documented as of this encounter (statuses as of 12/21/2022) [address]08[address]2015 History of Past illness Narrative* Problem Noted Date Diagnosed Date Resolved Date Obesity (BMI 30-39.9) 05/31/20142016 documented as of this encounter (statuses as of 12/22/2022) [address]08[address]2015 History of Past illness Narrative* Problem Noted Date Diagnosed Date Resolved Date Obesity (BMI 30-39.9) 05/31/20142016 documented as of this encounter (statuses as of 01/02/2023) [address]08[address]2015 History of Past illness Narrative* Problem Noted Date Diagnosed Date Resolved Date Obesity (BMI 30-39.9) 05/31/20142016 documented as of this encounter (statuses as of 01/13/2023) [address]08[address]2015 History of Past illness Narrative* Problem Noted Date Diagnosed Date Resolved Date Obesity (BMI 30-39.9) 05/31/20142016 documented as of this encounter (statuses as of 01/22/2023) [address]08[address]2015 History of Past illness Narrative* Problem Noted Date Diagnosed Date Resolved Date Obesity (BMI 30-39.9) 05/31/20142016 documented as of this encounter (statuses as of 01/26/2023) [place] [address]-08-2015 History of Past illness Narrative* Problem Noted Date Diagnosed Date Resolved Date Obesity (BMI 30-39.9) 05/31/20142016 documented as of this encounter (statuses as of 02/04/2023) [address]08-2015 History of Past illness Narrative* Problem Noted Date Diagnosed Date Resolved Date Obesity (BMI 30-39.9) 05/31/20142016 documented as of this encounter (statuses as of 02/04/2023) [address]-2015 History of Past illness Narrative* Problem Noted Date Diagnosed Date Resolved Date Obesity (BMI 30-39.9) 05/31/20142016 documented as of this encounter (statuses as of 02/07/2023) [address]-2015 History of Past illness Narrative* Problem Noted Date Diagnosed Date Resolved Date Obesity (BMI 30-39.9) 05/31/20142016 documented as of this encounter (statuses as of 02/08/2023) [address]-2015 History of Past illness Narrative* Problem Noted Date Diagnosed Date Resolved Date Obesity (BMI 30-39.9) 05/31/20142016 documented as of this encounter (statuses as of 02/16/2023) [address]-2015 History of Past illness Narrative* Problem Noted Date Diagnosed Date Resolved Date Obesity (BMI 30-39.9) 05/31/20142016 documented as of this encounter (statuses as of 02/19/2023) [address]-2015 History of Past illness Narrative* Problem Noted Date Diagnosed Date Resolved Date Obesity (BMI 30-39.9) 05/31/20142016 documented as of this encounter (statuses as of 02/21/2023) [address]-2015 History of Past illness Narrative* Problem Noted Date Diagnosed Date Resolved Date Obesity (BMI 30-39.9) 05/31/20142016 documented as of this encounter (statuses as of 03/02/2023) [facility] Other systemic lupus erythematosus [...] and myositis, unspecified [facility] Diagnosis Swelling of lymph nodes- Primary Enlargement of lymph nodes Other systemic lupus erythematosus with other organ involvement (HCC) On prednisone therapy Hair loss Alopecia, unspecified Bilateral sacroiliitis (HCC) Long-term use of Plaquenil Encounter for long-term (current) use of other medications [facility] Diagnosis Vitamin B12 deficiency- Primary Other B-complex deficiencies Vitamin D deficiency Unspecified vitamin D deficiency Elevated sed rate Elevated sedimentation rate Elevated C-reactive protein (CRP) [facility] Diagnosis 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 Other vitamin B12 deficiency anemia Somnolence, daytime Hypersomnia, unspecified Snoring Other dyspnea and respiratory abnormality Chronic fatigue and malaise Chronic fatigue syndrome Obesity, unspecified classification, unspecified obesity type, unspecified whether serious comorbidity present [facility] Diagnosis Obesity, Class II, BMI [...] nonspecific immunological findings [facility] Diagnosis Megaloblastic anemia due to vitamin B12 deficiency- Primary Other vitamin B12 deficiency anemia High total serum IgM [facility] Diagnosis Raised level of immunoglobulins- [...] Elevated sedimentation rate [facility] Diagnosis Megaloblastic anemia due to vitamin B12 deficiency- Primary Other vitamin B12 deficiency anemia Elevated sed rate Elevated sedimentation rate High total serum IgM Chronic fatigue and malaise Chronic fatigue syndrome [facility] Diagnosis JOSE RAFAEL (obstructive sleep apnea)- Primary Obstructive sleep apnea (adult) (pediatric) [facility]* Diagnosis Other systemic lupus erythematosus [...] Anemia of other chronic disease 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 Encounter for long-term (current) use of other medications [facility] Diagnosis Megaloblastic anemia due to vitamin B12 deficiency- Primary Other vitamin B12 deficiency anemia Elevated sed rate Elevated sedimentation rate [facility] Diagnosis Megaloblastic anemia due to vitamin B12 deficiency- Primary Other vitamin B12 deficiency anemia Elevated sed rate Elevated sedimentation rate High total serum IgM Chronic fatigue and malaise Chronic fatigue syndrome JOSE RAFAEL (obstructive sleep apnea) Obstructive sleep apnea (adult) (pediatric) [facility] Diagnosis Vitamin D deficiency Unspecified vitamin D deficiency [facility]* Diagnosis Obesity, Class III, BMI >= 40- Primary Morbid obesity Polypharmacy Encounter for long-term (current) use of other medications Pre-diabetes Other abnormal glucose [facility] Diagnosis Megaloblastic anemia due to vitamin B12 deficiency- Primary Other vitamin B12 deficiency anemia Elevated sed rate Elevated sedimentation rate [facility] Diagnosis Megaloblastic anemia due to vitamin B12 deficiency- Primary Other vitamin B12 deficiency anemia Elevated sed rate Elevated sedimentation rate [facility] Diagnosis Megaloblastic anemia due to vitamin B12 deficiency- Primary Other vitamin B12 deficiency anemia Elevated sed rate Elevated sedimentation rate High total serum IgM Chronic fatigue and malaise Chronic fatigue syndrome Obstructive sleep apnea syndrome Obstructive sleep apnea (adult) (pediatric) [facility] Diagnosis Megaloblastic anemia due to vitamin B12 deficiency- Primary Other vitamin B12 deficiency anemia Elevated sed rate Elevated sedimentation rate [facility] Diagnosis Other systemic lupus erythematosus with other organ involvement (HCC) Encounter for snf 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 Encounter for long-term (current) use of other medications [facility] Diagnosis Megaloblastic anemia due to vitamin B12 deficiency- Primary Other vitamin B12 deficiency anemia Chronic fatigue and malaise Chronic fatigue syndrome [facility] Diagnosis High total serum IgM- Primary Low serum IgG for age Current smoker Tobacco use disorder [facility] Diagnosis Obesity, Class II, BMI 35-39.9 Obesity, unspecified Prediabetes Other abnormal glucose [facility] Diagnosis Megaloblastic anemia due to vitamin B12 deficiency- Primary Other vitamin B12 deficiency anemia Elevated sed rate Elevated sedimentation rate [facility] Diagnosis Other systemic lupus erythematosus with other organ involvement (HCC)- Primary Vitamin D deficiency Unspecified vitamin D deficiency Elevated LFTs Other abnormal blood chemistry Anemia of chronic disease Anemia of other chronic disease Elevated sed rate Elevated sedimentation rate Elevated C-reactive protein (CRP) [facility] Diagnosis Other systemic [...] Elevated sedimentation rate [facility] Diagnosis Other systemic lupus erythematosus with other organ involvement (HCC)- Primary [facility] Diagnosis Other systemic lupus erythematosus with other organ involvement (HCC) 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 Encounter for long-term (current) use of other medications [facility] Diagnosis Megaloblastic anemia due to vitamin B12 deficiency- Primary Other vitamin B12 deficiency anemia Elevated sed rate Elevated sedimentation rate [facility] Diagnosis Megaloblastic anemia due to vitamin B12 deficiency- Primary Other vitamin B12 deficiency anemia Elevated sed rate Elevated sedimentation rate Chronic fatigue and malaise Chronic fatigue syndrome High total serum IgM JOSE RAFAEL (obstructive sleep apnea) Obstructive sleep apnea (adult) (pediatric) [facility]* Diagnosis Insulin resistance, unspecified- Primary [...] pain [facility] Diagnosis Obesity, Class III, BMI >= 40 Morbid obesity [facility] Diagnosis Obesity, Class III, BMI >= 40- Primary Morbid obesity Other chronic pain [facility] Diagnosis Irregular heart rate- Primary Essential hypertension Unspecified essential hypertension Autonomic dysfunction Obstructive sleep apnea syndrome Obstructive sleep apnea (adult) (pediatric) Primary hypertension Unspecified essential hypertension documented in this encounter [facility] Work Phone: Evaluation note* Diagnosis Autoimmune disease (CMS/HCC)- Primary Autoimmune disease, not elsewhere classified Autonomic dysfunction Lumbosacral radiculopathy Thoracic or lumbosacral neuritis or radiculitis, unspecified Bilateral leg weakness Muscle weakness (generalized) [facility] Diagnosis Shortness of breath- Primary Paroxysmal supraventricular tachycardia PAC (premature atrial contraction) Supraventricular premature beats Current smoker Systemic lupus erythematosus, unspecified SLE type, unspecified organ involvement status (CMS/HCC) Palpitations Obstructive sleep apnea syndrome Obstructive sleep apnea (adult) (pediatric) Morbid obesity (CMS/HCC) Morbid obesity Bilateral lower extremity edema documented in this encounter [facility] Work Phone: Evaluation note* Diagnosis Megaloblastic anemia due to vitamin B12 deficiency- Primary Other vitamin B12 deficiency anemia Elevated sed rate Elevated sedimentation rate [facility] Diagnosis Systemic lupus erythematosus with other organ involvement (HCC)- Primary [facility] Diagnosis Systemic lupus erythematosus with other organ involvement (HCC)- Primary [facility] Diagnosis Megaloblastic anemia due to vitamin B12 deficiency- Primary Other vitamin B12 deficiency anemia Elevated sed rate Elevated sedimentation rate [facility] Diagnosis Other systemic lupus erythematosus with other organ involvement (HCC)- Primary Vitamin D deficiency Unspecified vitamin D deficiency Elevated LFTs Other abnormal blood chemistry Anemia of chronic disease Anemia of other chronic disease Elevated sed rate Elevated sedimentation rate Elevated C-reactive protein (CRP) [facility] Diagnosis Megaloblastic anemia [...] with other organ involvement (HCC) Encounter for snf 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 Encounter for long-term [...] (pediatric) [facility] Diagnosis Elevated LFTs- Primary Other abnormal blood chemistry Elevated C-reactive protein (CRP) Elevated sed rate Elevated sedimentation rate Vitamin D deficiency Unspecified vitamin D deficiency Screening-pulmonary TB Screening examination for pulmonary tuberculosis [facility] Diagnosis Other systemic lupus erythematosus with other organ involvement (HCC) [facility] Diagnosis Systemic lupus erythematosus with other organ involvement (HCC)- Primary [facility] Diagnosis Elevated sed rate- Primary Elevated sedimentation rate Megaloblastic anemia due to vitamin B12 deficiency Other vitamin B12 deficiency anemia [facility] Diagnosis Pseudomonas infection- Primary Pseudomonas infection in conditions classified elsewhere and of unspecified site Other systemic lupus erythematosus with other organ involvement (HCC) On prednisone therapy Long-term use of Plaquenil Encounter for long-term (current) use of other medications [facility] Diagnosis Onset Date Resolution Status Lupus acute Recurrent Clostridioides difficile diarrhea acute Nipple discharge in female a cute Recurrent Clostridioides difficile diarrhea acute Lumbosacral spondylosis acut e Other chronic pain acute Sacroiliitis [facility] Work Phone: Evaluation note* Diagnosis JOSE RAFAEL (obstructive sleep apnea)- Primary Obstructive sleep apnea (adult) (pediatric) Somnolence, daytime Hypersomnia, unspecified [facility] Diagnosis Systemic lupus erythematosus with other organ involvement (HCC)- Primary [facility] Diagnosis Systemic lupus erythematosus with other organ involvement (HCC)- Primary [facility] Diagnosis Onset Date Resolution Status Nipple discharge in female a cute Recurrent Clostridioides difficile diarrhea acute Lumbosacral spondylosis acut e Other chronic pain acute Sacroiliitis [facility] Work Phone: Evaluation note* Diagnosis Elevated sed rate- Primary Elevated sedimentation rate Megaloblastic anemia due to vitamin B12 deficiency Other vitamin B12 deficiency anemia [facility] Diagnosis Onset Date Resolution Status Nipple discharge in female a cute Recurrent Clostridioides difficile diarrhea acute Lumbosacral spondylosis acut e Other chronic pain acute Sacroiliitis acute Lumbosacral spondylosis acut e Other chronic pain acute Sacroiliitis acute [facility] Work Phone: Evaluation note* Diagnosis Lumbosacral radiculopathy at L5 Degenerative disc disease, lumbar Cervical radiculopathy at C5 [facility] Diagnosis Onset Date Resolution Status Lumbosacral spondylosis acut e Other chronic pain acute Sacroiliitis acute Lumbosacral spondylosis acut e Other chronic pain acute Sacroiliitis acute [facility] Work Phone: Evaluation note* Diagnosis Other systemic lupus erythematosus with other organ involvement (HCC) [facility] Diagnosis Other systemic lupus erythematosus [...] erythematosus [facility]* Diagnosis Nipple discharge Other sign and symptom in breast documented in this encounter [facility]* Diagnosis Elevated sed rate- Primary Elevated sedimentation rate Megaloblastic anemia due to vitamin B12 deficiency Other vitamin B12 deficiency anemia [facility] Diagnosis Abnormal uterine bleeding (AUB) Menorrhagia with regular cycle documented in this encounter [facility]* Diagnosis Megaloblastic anemia due to vitamin B12 deficiency- Primary Other vitamin B12 deficiency anemia High total serum IgM JOSE RAFAEL (obstructive sleep apnea) Obstructive sleep apnea (adult) (pediatric) Elevated sed rate Elevated sedimentation rate Hypogammaglobulinemia (HCC) Hypogammaglobulinaemia, unspecified Frequent infections [facility] Diagnosis Oral thrush- Primary Candidiasis of mouth documented in this encounter [facility]* Diagnosis Oral thrush- Primary Candidiasis of mouth documented in this encounter [facility]* Diagnosis Systemic lupus erythematosus with other organ involvement (HCC)- Primary [facility]* Diagnosis LPRD (laryngopharyngeal reflux disease)- Primary Acute laryngitis, without mention of obstruction Acute otalgia, right documented in this encounter [facility]* Diagnosis Autoimmune disease ([facility]) Autoimmune disease, not elsewhere classified Fibromyalgia Unspecified myalgia and myositis Numbness Disturbance of skin sensation documented in this encounter [facility]* Diagnosis Lumbosacral radiculopathy at L5- Primary Degenerative disc disease, lumbar Cervical radiculopathy at C5 [facility] Degenerative disc disease, lumbar- Primary Lumbosacral radiculopathy at L5 documented in this encounter [facility]* Diagnosis Frequent infections- Primary Megaloblastic anemia due to vitamin B12 deficiency Other vitamin B12 deficiency anemia Elevated sed rate Elevated sedimentation rate Hypogammaglobulinemia (HCC) Hypogammaglobulinaemia, unspecified Bilateral leg weakness Other musculoskeletal symptoms referable to limbs Discoid lupus erythematosus Lupus erythematosus [facility] Diagnosis Well woman exam with routine gynecological exam Routine gynecological examination Breast cancer screening by mammogram Breast nodule Other (abnormal) findings on radiological examination of breast [facility] Diagnosis Megaloblastic anemia due to vitamin B12 deficiency- Primary Other vitamin B12 deficiency anemia Hypogammaglobulinemia (HCC) Hypogammaglobulinaemia, unspecified Positive blood cultures Bacteremia Malaise and fatigue Other malaise and fatigue SOB (shortness of breath) Shortness of breath [facility] Diagnosis Elevated sed rate- Primary [...] pain, unspecified site [facility] Diagnosis Other iron deficiency anemia- Primary [facility] Diagnosis Other systemic lupus erythematosus with other organ involvement (HCC) [facility] Diagnosis Systemic lupus erythematosus with other organ involvement (HCC)- Primary [facility] Diagnosis Systemic lupus erythematosus (CMS-HCC)- Primary Cold extremities Pain of lower extremity, unspecified laterality Rheumatoid arthritis, involving unspecified site, unspecified whether rheumatoid factor present (CMS-HCC) Current smoker 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 [facility]* Diagnosis Systemic lupus erythematosus (CMS-HCC)- Primary Cold extremities Pain of lower extremity, unspecified laterality Rheumatoid arthritis, involving unspecified site, unspecified whether rheumatoid factor present ([facility]-HCC) Current smoker 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 Peripheral vascular disease, unspecified ([facility]-HCC)- Primary Peripheral vascular disease, unspecified Cold extremities Systemic lupus erythematosus (CMS-HCC) [facility] Diagnosis Other systemic lupus erythematosus with other organ involvement (HCC)- Primary Vitamin D deficiency Unspecified vitamin D deficiency Elevated LFTs Other abnormal blood chemistry Anemia of chronic disease Anemia of other chronic disease Elevated sed rate Elevated sedimentation rate Elevated C-reactive protein (CRP) documented in this encounter [facility] note* Diagnosis Onset Date Resolution Status Admit Date Lumbosacral spondylosis acute F ebruary 2024 3:16pm Other chronic pain acute Februa ry 2024 3:16pm Sacroiliitis acute June 3:16pm [facility] Work Phone: Evaluation note* Diagnosis Elevated sed rate- Primary Elevated sedimentation rate Megaloblastic anemia due to vitamin B12 deficiency Other vitamin B12 deficiency anemia Frequent infections Hypogammaglobulinemia (HCC) Hypogammaglobulinaemia, unspecified Bilateral leg weakness Other musculoskeletal symptoms referable to limbs Discoid lupus erythematosus Lupus erythematosus [facility] Diagnosis LPRD (laryngopharyngeal reflux disease) Other diseases of larynx Dry mouth Disturbance of salivary secretion Current smoker Tobacco use disorder Abnormal mouth sensation Other and unspecified diseases of the oral soft tissues [facility] Diagnosis Nipple discharge- Primary Other sign and symptom in breast Other systemic lupus erythematosus with other organ involvement (HCC) On prednisone therapy Long-term use of Plaquenil Encounter for long-term (current) use of other medications [facility]* Diagnosis Hidradenitis suppurativa- Primary Hidradenitis Other seborrheic dermatitis Lupus erythematosus tumidus (CMS/HCC) Rash and other nonspecific skin eruption Capillary angioma Nevus, non-neoplastic Neoplasm of uncertain behavior of skin documented in this encounter [facility]* Diagnosis Sinus tachycardia- Primary Other specified cardiac dysrhythmias Shortness of breath Paroxysmal supraventricular tachycardia (CMS-HCC) Paroxysmal supraventricular tachycardia Essential hypertension Unspecified essential hypertension Obstructive sleep apnea syndrome Obstructive sleep apnea (adult) (pediatric) Morbid obesity (Multi) Morbid obesity Current smoker documented in this encounter [facility] Work Phone: Evaluation note* Diagnosis Elevated sed rate- Primary Elevated sedimentation rate Megaloblastic anemia due to vitamin B12 deficiency Other vitamin B12 deficiency anemia Frequent infections Hypogammaglobulinemia (HCC) Hypogammaglobulinaemia, unspecified Bilateral leg weakness Other musculoskeletal symptoms referable to limbs Discoid lupus erythematosus Lupus erythematosus [facility]* Diagnosis Systemic lupus erythematosus with other organ involvement (HCC)- Primary [facility]* Diagnosis Vitamin B12 deficiency- Primary Other B-complex deficiencies Other iron deficiency anemia Hypogammaglobulinemia (HCC) Hypogammaglobulinaemia, unspecified [facility] Diagnosis Other systemic lupus erythematosus with other organ involvement (HCC) [facility] Diagnosis Thyroid nodule (CMS/HCC)- Primary Nontoxic uninodular goiter LPRD (laryngopharyngeal reflux disease) Acute laryngitis, without mention of obstruction documented in this encounter [facility]Evaluation note* Diagnosis Hypogammaglobulinemia (HCC)- Primary Hypogammaglobulinaemia, unspecified Vitamin B12 deficiency Other B-complex deficiencies Other iron deficiency anemia Megaloblastic anemia due to vitamin B12 deficiency Other vitamin B12 deficiency anemia [facility] Diagnosis Frequent infections- Primary Hypogammaglobulinemia (HCC) Hypogammaglobulinaemia, unspecified Bilateral leg weakness Other musculoskeletal symptoms referable to limbs Discoid lupus erythematosus Lupus erythematosus Elevated sed rate Elevated sedimentation rate Megaloblastic anemia due to vitamin B12 deficiency Other vitamin B12 deficiency anemia [facility] Diagnosis Other systemic lupus erythematosus with other organ involvement (HCC)- Primary [facility] Diagnosis Other systemic lupus erythematosus with other organ involvement (HCC) [facility] Diagnosis Systemic lupus erythematosus with other organ involvement (HCC)- Primary [facility]* Diagnosis Fibromyalgia- Primary Mylagia and myositis, unspecified Family history of disease of aorta Family history of cancer Family history of unspecified malignant neoplasm [facility] Diagnosis Frequent infections- Primary Hypogammaglobulinemia [...] vitamin D deficiency [facility] Diagnosis Other systemic lupus erythematosus with other organ involvement (HCC)- Primary [facility] Diagnosis Other systemic lupus erythematosus with other organ involvement (HCC)- Primary Elevated LFTs Other abnormal blood chemistry Anemia of chronic disease Anemia of other chronic disease Elevated sed rate Elevated sedimentation rate Elevated C-reactive protein (CRP) Vitamin B12 deficiency Other B-complex deficiencies Screening-pulmonary TB Screening examination for pulmonary tuberculosis Vitamin D deficiency Unspecified vitamin D deficiency [facility] Diagnosis Other systemic lupus erythematosus [...] both feet Long-term use of high-risk medication 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 Encounter for long-term (current) use of steroids Bilateral hand pain Pain in limb Family history of Crohn's disease Family history of other digestive disorders 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 Bilateral wrist pain 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, forearm [facility] Diagnosis Other systemic lupus erythematosus with other organ involvement (HCC)- Primary [facility] Diagnosis Generalized articular hypermobility- Primary Other joint derangement, not elsewhere classified, multiple sites Chronic pain syndrome Discoid lupus erythematosus Lupus erythematosus Family history of pneumothorax in son Family history of other condition Family history of cancer Family history of unspecified malignant neoplasm Family history of mild aortic dilation in daughter Family history of other cardiovascular diseases [facility] Diagnosis Elevated sed rate- Primary Elevated sedimentation rate Megaloblastic anemia due to vitamin B12 deficiency Other vitamin B12 deficiency anemia Frequent infections Hypogammaglobulinemia (HCC) Hypogammaglobulinaemia, unspecified Bilateral leg weakness Other musculoskeletal symptoms referable to limbs Discoid lupus erythematosus Lupus erythematosus documented [facility] Diagnosis Other systemic lupus erythematosus with other organ involvement (HCC)- Primary [facility]* Diagnosis Hypogammaglobulinemia (HCC)- Primary Hypogammaglobulinaemia, unspecified documented [facility]* Diagnosis Hidradenitis suppurativa- Primary Hidradenitis Pain Generalized pain Acne vulgaris Other acne [facility] Diagnosis Hypogammaglobulinemia (HCC)- Primary Hypogammaglobulinaemia, unspecified Vitamin B12 deficiency Other B-complex deficiencies Other iron deficiency anemia Malaise and fatigue Other malaise and fatigue Shortness of breath Other specified disorders of breast Pre-diabetes Other abnormal glucose Gastro-esophageal reflux disease without esophagitis Esophageal reflux documented [facility]* Diagnosis Elevated sed rate- Primary Elevated sedimentation rate Megaloblastic anemia due to vitamin B12 deficiency Other vitamin B12 deficiency anemia Frequent infections Hypogammaglobulinemia (HCC) Hypogammaglobulinaemia, unspecified Bilateral leg weakness Other musculoskeletal symptoms referable to limbs Discoid lupus erythematosus Lupus erythematosus [facility] Diagnosis Other systemic [...] for pulmonary tuberculosis [facility] Diagnosis Other systemic lupus erythematosus with other organ involvement (HCC)- Primary Elevated LFTs Other abnormal blood chemistry Anemia of chronic disease Anemia of other chronic disease Elevated C-reactive protein (CRP) Elevated sed rate Elevated sedimentation rate Vitamin D deficiency Unspecified vitamin D deficiency [facility] Diagnosis Frequent infections- Primary Hypogammaglobulinemia (HCC) Hypogammaglobulinaemia, unspecified Bilateral leg weakness Other musculoskeletal symptoms referable to limbs Discoid lupus erythematosus Lupus erythematosus Elevated sed rate Elevated sedimentation rate Megaloblastic anemia due to vitamin B12 deficiency Other vitamin B12 deficiency anemia [facility] Diagnosis Pilonidal cyst- Primary Hidradenitis suppurativa Hidradenitis documented in this encounter [facility]* Diagnosis Pilonidal abscess- Primary Pilonidal cyst with abscess Pilonidal cyst documented in this encounter [facility] HealthcareHistory general Narrative - Reported* Type Description Date Medical History hyperlipidemia Medical History insulin resistance Medical History CMV Surgical History cyst removal pilonidal Surgical History D&C Hospitalization History [facility] Other Hospital Discharge instructionsAmbulatory Orders* Referral to Gastroenterology Location: None [facility] Work Phone: Hospital Discharge instructions Additional Instructions Dressing changes to sacral region daily: Remove packing, irrigate with saline, repack with saline moistened 2 x 2 gauze and [facility] Work Phone: InstructionsNot on filedocumented in this encounter [facility] SystemReason for referral (narrative)* Diagnostic Procedure Only (Routine) - Pending Review Specialty Diagnoses / Procedures Referred By Contac t Referred To Contact XR IMAGING Diagnoses Steroid-induced osteoporosis Procedures DXA-FOREARM SKELETON DXA BONE DENSITY STUDY 1/>SITES APPENDICLR Lynne Perera MD [address] [place] [address] [place] [id number] Referral ID Status Reason Start Date Expiration Date Visits Requested Visits Authorized [id number] Pending Review Auto-Generat ed Referral 02/04/2023 03/05/2024 1 1 [facility] for referral (narrative)* Consultation (Routine) - Authorized Specialty Diagnoses / Procedures Referred By Contac t Referred To Contact Cardiology Diagnoses Irregular heart rate Essential hypertension Autonomic dysfunction Obstructive sleep apnea syndrome Primary hypertension Procedures Follow Up In Cardiology Michelle Jasmine APRN-CNP [address] [facility] [address] [place] [address] Aurora Patel MD [address] [facility] [address] [place] [address] Referral ID Status Reason Start Date Expiration Date V isits Requested Visits Authorized [id number] Authorized 06/09/2023 06/08/2024 1 1 * Cardiovascular (Routine) - Pending Review Specialty Diagnoses / Procedures Referred By Contac t Referred To Contact Cardiology Diagnoses Irregular heart rate 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 Michelle Jasmine APRN-CNP [address] [place] [address] Referral ID Status Reason Start Date Expiration [...] COMPL SPEC&COLR D Michelle Jasmine APRN-CNP [address] [place] [address] Referral ID Status Reason Start Date Expiration Date Visits Requested Visits Authorized [id number] Pending Review Perform Procedure 06/09/2023 06/08/2024 1 1 * Cardiovascular (Routine) - Authorized Specialty Diagnoses / Procedures Referred By Contac t Referred To Contact Diagnoses Irregular heart rate Procedures ECG 12 Lead Michelle Jasmine APRN-CNP [address] [place] [address] [address] [place] [address] Referral ID Status Reason Start Date Expiration Date V isits Requested Visits Authorized [id number] Authorized 06/09/2023 06/08/2024 1 1 [facility] Work Phone: Reason for referral (narrative)* Consultation (Routine) - Pending Review Specialty Diagnoses / Procedures Referred By Contac t Referred To Contact Pain Medicine Diagnoses Lumbosacral radiculopathy at L5 Degenerative disc disease, lumbar Procedures OR OFFICE/OUTPATIENT [facility] 60 MINUTES Kade Richardson MD [address] [address] Adolfo Kang MD [address] [address] Referral ID Status Reason Start Date Expiration Date Visits Requested Visits Authorized [id number] Pending Review Specialty Services Required 01/20/2024 07/18/2024 1 1 [facility] HealthcareReason for referral (narrative)No reason for referral information [facility]Our [facility] Work Phone: Reason for visit Narrative* [place] Prior Authorization (Routine) - Authorized Specialty Diagnoses / Procedures Referred By Contac t Referred To Contact Diagnoses Frequent infections Hypogammaglobulinemia (HCC) Bilateral leg weakness Discoid lupus erythematosus Procedures GAMMAGARD LIQUID INJECTION Vera Najera MD [address] [facility] [place] [address] Phone: tel: fax: Hematology/Oncology [address] [facility] [place] [address] Phone: tel: fax: Referral ID Status Reason Start Date Expiration Date V isits Requested Visits Authorized [id number] Authorized 04/03/2024 10/01/2024 7 7 [facility] for visit Narrative* [place] Prior Authorization (Routine) - Authorized Specialty Diagnoses / Procedures Referred By Contac t Referred To Contact Diagnoses Other systemic lupus erythematosus with other organ involvement (HCC) Procedures BELIMUMAB INJECTION Lynne Ni MD [address] [place] [address] Phone: tel: fax: Lynne Ni MD [address] [place] [address] Phone: tel: fax: Referral ID Status Reason Start Date Expiration Date V isits Requested Visits Authorized [id number] Authorized 09/08/2024 03/10/2025 8 8 [facility] for visit Narrative* [place] Prior Authorization (Routine) - Authorized Specialty Diagnoses / Procedures Referred By Contac t Referred To Contact Diagnoses Other iron deficiency anemia Procedures IRON SUCROSE INJECTION PER 1 MG Vaibhav Carvalho APRN.CORK MIXER [address] [facility] [place] [address] Phone: tel: fax: Hematology/Oncology [address] [facility] [place] [address] Phone: tel: fax: Referral ID Status Reason Start Date Expiration Date V isits Requested Visits Authorized [id number] Authorized 06/16/2024 05/23/2025 99 99 [facility] for visit Narrative* [place] Prior Authorization (Routine) - Authorized Specialty Diagnoses / Procedures Referred By Contac t Referred To Contact Diagnoses Frequent infections Hypogammaglobulinemia (HCC) Bilateral leg weakness Discoid lupus erythematosus Procedures GAMMAGARD LIQUID INJECTION Vera Najera MD [address] [facility] [place] [place] [address] Phone: tel: fax: Hematology/Oncology [address] [facility] [place] [address] Phone: tel: fax: Referral ID Status Reason Start Date Expiration Date Visits Requested Visits Authorized [id number] Authorized Patient Cleared - Admin/Chairm an/Director advise to proceed or did not respond 10/30/2024 10/30/2025 19 19 [facility] for visit Narrative* [place] Prior Authorization (Routine) - Authorized Specialty Diagnoses / Procedures Referred By Contac t Referred To Contact Diagnoses Frequent infections Hypogammaglobulinemia (HCC) Bilateral leg weakness Discoid lupus erythematosus Procedures GAMMAGARD LIQUID INJECTION Vera Najera MD [address] [facility] [place] [address] Phone: tel: fax: Hematology/Oncology [address] [place] [address] [place] [address] Phone: tel: fax: Referral ID Status Reason Start Date Expiration Date Visits Requested Visits Authorized [id number] Authorized Patient Cleared - Admin/Chairm an/Director advise to proceed or did not respond 10/30/2024 10/30/2025 18 18 [facility] for visit Narrative* [place] Prior Authorization (Routine) - Authorized Specialty Diagnoses / Procedures Referred By Contac t Referred To Contact Diagnoses Frequent infections Hypogammaglobulinemia (HCC) Bilateral leg weakness Discoid lupus erythematosus Procedures GAMMAGARD LIQUID INJECTION IMMUNE GLOBULIN INJECTION Vera Najera MD [address] [facility] [place] [address] Phone: tel: fax: Hematology/Oncology [address] [facility] [place] [address] Phone: tel: fax: Referral ID Status Reason Start Date Expiration Date Visits Requested Visits Authorized [id number] Authorized Patient Cleared - Admin/Chairm an/Director advise to proceed or did not respond 10/30/2024 10/30/2025 19 19 [facility] Summary Purpose Family History No Family History Records Found Relationship Condition Age at Onset Recorded Date/T michelle father Unknown Malignant neoplasm Unknown Relationship Condition Age at Onset Recorded Date/T michelle father Malignant neoplasm of stomach Unknown Unknown mother Crohn's disease Unknown Advance Directives No Advanced Directives Records FoundDocuments on File Type Date Recorded Patient Transmission Engineer Expl anation ACP-Advance Directive ACP-Power of Tool Honing Machine Set Up Operator Latest Code Status on File Code Status Date Activated Date Inactivated Comments Full Code 10/07/2020 8:32 AM Documents on File Type Date Recorded Patient Transmission Engineer Expl anation Advance Directive(s) 09/13/2015 8:36 AM Advance Directive Response Recorded Date/ Time Advance Directives No September 17, 019 2:40pm Advance Directive Response Recorded Date/ Time Advance Directives No September 17, 019 1:40pm Reason for Referral Specialty Diagnoses / Procedures Referred By Contac t Referred To Contact Infectious Diseases Diagnoses Positive blood cultures Procedures CONSULT TO INFECTIOUS DISEASES OFFICE/OUTPATIENT [facility] 60 MINUTES Vaibhav Carvalho APRN.[address] [place] [address] Referral ID Status Reason Start Date Expiration Date Visits Requested Visits Authorized [id number] Authorized PCP Requested Referral 06/13/2024 06/13/2025 1 1 Specialty Diagnoses / Procedures Referred By Contac t Referred To Contact Diagnoses Paroxysmal supraventricular tachycardia PAC (premature atrial contraction) Procedures ECG 12 Lead Lois Holm MD [address] [place] [address] [address], [address] [place] [address] Referral ID Status Reason Start Date Expiration Date V isits Requested Visits Authorized [id number] Authorized 07/13/2023 07/12/2024 1 1 Specialty Diagnoses / Procedures Referred By Contac t Referred To Contact Cardiology Diagnoses Shortness of breath Paroxysmal supraventricular tachycardia PAC (premature atrial contraction) Procedures Follow Up In Cardiology Lois Holm MD [address] 2, [address] [place] [address] Lois Holm MD 703 [facility] 2, [address] [address] Referral ID Status Reason Start Date Expiration Date V isits Requested Visits Authorized [id number] Authorized 07/13/2023 07/12/2024 1 1 Specialty Diagnoses / Procedures Referred By Contac t Referred To Contact Diagnoses Obesity, Class III, BMI 40-49.9 (morbid obesity) (HCC) Pre-diabetes Christie Phan MD [address] [place] [address] Referral ID Status Reason Start Date Expiration Date Visits Re quested Visits Authorized [id number] Closed 1 1 Specialty Diagnoses / Procedures Referred By Contac t Referred To Contact Diagnoses Wound healing, delayed Procedures CONSULT TO MEDICAL GENETICS - GENERAL OFFICE/OUTPATIENT [facility] 60-74 MINUTES MEDICAL GENETICS COUNSELING EACH 30 MINUTES Misty Nelson MD [facility] [place] [address] [facility] [place] [address] [place] [address] Referral ID Status Reason Start Date Expiration Date Visits Requested Visits Authorized [id number] Authorized PCP Requested Referral Auto-Generate d Referral 2 03/10/2023 1 1 Specialty Diagnoses / Procedures Referred By Contac t Referred To Contact Neurology Diagnoses POTS (postural orthostatic tachycardia syndrome) Procedures CONSULT TO NEUROLOGY OFFICE/OUTPATIENT [facility] 60-74 MINUTES Christie Phan MD [address] [place], [place] [id number] Referral ID Status Reason Start Date Expiration Date Visits Requested Visits Authorized [id number] Authorized PCP Requested Referral 2 03/12/2023 1 1 Specialty Diagnoses / Procedures Referred By Contac t Referred To Contact Immunology Diagnoses Raised level of immunoglobulins Procedures CONSULT TO IMMUNOLOGY OFFICE/OUTPATIENT [facility] 60-74 MINUTES Christie Phan MD [address] [place], [place] [id number] Referral ID Status Reason Start Date Expiration Date V isits Requested Visits Authorized [id number] Closed PCP Requested Referral 03/09/2022 03/09/2023 1 1 Specialty Diagnoses / Procedures Referred By Contac t Referred To Contact [facility] Diagnoses Somnolence, daytime Snoring Procedures HOME SLEEP APNEA TEST (HSAT) SLEEP STD AIRFLOW HRT RATE&O2 SAT EFFORT Christie Pang MD [address] [place] [address] Neurological [place] [address] [place] [address] Referral ID Status Reason Start Date Expiration Date Visits Requested Visits Authorized [id number] Authorized Auto-Generat ed Referral 2 03/09/2023 1 1 Specialty Diagnoses / Procedures Referred By Azulac t Referred To Contact Diagnoses Somnolence, daytime Chronic fatigue and malaise Obesity, unspecified classification, unspecified obesity type, unspecified whether serious comorbidity present Procedures CONSULT TO LIFESTYLE MEDICINE MD OFFICE/OUTPATIENT [facility] 60-74 MINUTES Vera Najera MD [address] [place] [address] [place] [address] Referral ID Status Reason Start Date Expiration Date V isits Requested Visits Authorized [id number] Closed PCP Requested Referral 03/04/2022 03/04/2023 1 1 Specialty Diagnoses / Procedures Referred By Nahid Referred To Contact Diagnoses Somnolence, daytime Snoring Procedures CONSULT TO SLEEP MEDICINE - ADULT OFFICE/OUTPATIENT [facility] 60-74 MINUTES Vera Najera MD [address] [place] [address] [place] [address] Referral ID Status Reason Start Date Expiration Date Visits Requested Visits Authorized [id number] Authorized PCP Requested Referral 2 03/04/2023 1 [...] section and content) DATE CREATED AUTHOR 09/20/2018 [facility] DATE CREATED AUTHOR AUTHOR'S ORGANIZ ATION 12/10/2018 [facility] DATE CREATED AUTHOR AUTHOR'S ORGANIZ ATION [facility]/13/2019 [facility] DATE CREATED AUTHOR AUTHOR'S ORGANIZ ATION 06/28/2021 [facility] DATE CREATED AUTHOR AUTHOR'S ORGANIZ ATION 10/01/2022 [facility] DATE CREATED AUTHOR AUTHOR'S ORGANIZ ATION 03/10/[address] [facility] DATE CREATED AUTHOR AUTHOR'S ORGANIZ ATION 07/22/2024 [facility] DATE CREATED AUTHOR AUTHOR'S ORGANIZ ATION 07/28/[address] [facility] DATE CREATED AUTHOR AUTHOR'S ORGANIZ ATION 02/26/2025 [facility] DATE CREATED AUTHOR AUTHOR'S ORGANIZ ATION 03/02/2025 [facility] EPIC DATE CREATED AUTHOR AUTHOR'S ORGANIZ ATION 03/09/[address] [facility] Reason for Visit (unrecogniz ed section and content) Reason Comments Infection Follow Up Specialty Diagnoses / Procedures Referred By Contac t Referred To Contact Infectious Diseases Diagnoses Positive blood cultures Procedures CONSULT TO INFECTIOUS DISEASES OFFICE/OUTPATIENT [facility] 60 MINUTES Vaibhav Carvalho, SALES APPRENTICE.[address] [place] [address] Phone: tel: fax: Referral ID Status Reason Start Date Expiration Date V isits Requested Visits Authorized [id number] Closed PCP Requested Referral 06/13/2024 06/13/2025 1 1 Status Reason Specialty Diagnoses / Procedures Referre d By Contact Referred To Contact [facility] Reason Comments Pain ongoing generalized [...] HIGH MDM 60-74 MINUTES Vera Najera MD [address] [place] [address] [place] [address] Referral ID Status Reason Start Date Expiration Date V isits Requested Visits Authorized [id number] Closed PCP Requested Referral 03/04/2022 03/04/2023 1 1 Reason Comments High Total serum IgM Anemia Reason Comments Consult Specialty Diagnoses / Procedures Referred By Contac t Referred To Contact Immunology Diagnoses Raised level of immunoglobulins Procedures CONSULT TO IMMUNOLOGY OFFICE/OUTPATIENT NEW HIGH MDM 60-74 MINUTES Christie Phan MD [address] [place] [address] Referral ID Status Reason Start Date Expiration Date V isits Requested Visits Authorized [id number] Closed PCP Requested Referral 03/09/2022 03/09/2023 1 1 Reason Comments Pneumovax Reason Comments Refill Request Reason Comments Appointment Seo Expert - Other Reason Comments Future Appointment Scheduling [...] rate Procedures ECG 12 Lead Michelle Jasmine, SALES APPRENTICE-CORK MIXER [address] [facility] [address] [place] [address] Referral ID Status Reason Start Date Expiration Date V isits Requested Visits Authorized [id number] Authorized 06/09/2023 06/08/2024 1 1 Reason Comments New Patient Visit Leg Swelling, test r esults from [facility] Specialty Diagnoses / Procedures Referred By Contac t Referred To Contact Diagnoses Paroxysmal supraventricular tachycardia PAC (premature atrial contraction) Procedures ECG 12 Lead Lois Holm MD [address] [facility] 2, [address] [place] [address] Referral ID Status Reason Start Date Expiration Date V isits Requested Visits Authorized [id number] Authorized 07/13/2023 07/12/2024 1 1 Reason Onset [...] Reason Comments Orders PAP RX. 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 [address] [place], [place] [id number] Phone: tel:[phone] fax: Hayden Arciniega MD [address] [place] [address] Phone: tel:[phone] fax: Referral ID Status Reason Start Date Expiration Date Visits Requested Visits Authorized [id number] Pending Review Specialty Services Required 03/15/2025 1 1 Reason Comments Mouth/Lip Problem Since February Reason Onset Date Comments SPP Inflammatory Conditions - Medication Refill 07/25/2024 Benlysta Reason Comments Follow-up Skin Check Reason Comments Annual Exam Specialty Diagnoses / Procedures Referred By Nahid t Referred To Contact Cardiology Diagnoses Shortness of breath Paroxysmal supraventricular tachycardia ([facility]) PAC (premature atrial contraction) Procedures Follow Up In Cardiology Lois Holm MD [address] [address], [address] [address] Phone: tel: fax: Lois Holm MD [address] [facility] [address], [address] [address] Phone: tel: fax: Referral ID Status Reason Start Date Expiration Date V isits Requested Visits Authorized [id number] Authorized 07/13/2023 07/12/2024 1 1 Reason Comments Med Change Request Reason Comments Patient Question Reason Onset Date Comments SPP Inflammatory Conditions - Medication Refill 08/17/2024 Benlysta Reason Onset Date Comments Refill Request 09/01/2024 Reason Comments Thyroid Nodule Follow up ultrasound [facility] 08/24/24 Reason Comments Megaloblastic anemia [...] Procedures EST PATIENT Self Ny Lance MD [address] [address] Phone: tel: fax: Referral ID Status Reason Start Date Expiration Date V isits Requested Visits Authorized [id number] Pending Review 09/19/2024 12/18/2024 1 1 Reason [...] Surgery Diagnoses Pilonidal cyst Procedures OR OFFICE/OUTPATIENT NEW HIGH MDM 60 MINUTES Bernabe English MD [address] [place] [address] Phone: tel: fax: Terence Blum MD [address] [place] [address] Phone: tel: fax: Referral ID Status Reason Start Date Expiration Date V isits Requested Visits Authorized [id number] Closed Specialty Services Required 02/14/2025 08/13/2025 1 [...] alcohol or drug abuse patient.[facility] HospitalIn the event this information is protected by the Federal Confidentiality of Alcohol and Drug Abuse Patient Records regulations: The Federal rules restrict any use of the information to criminally investigate or prosecute any alcohol or drug abuse patient.[facility] HospitalIn the event this information is protected by the Federal Confidentiality of Alcohol and Drug Abuse Patient Records regulations: The Federal rules restrict any use of the information to criminally investigate or prosecute any alcohol or drug abuse patient.[facility] HospitalIn the event this information is protected by the Federal Confidentiality of Alcohol and Drug Abuse Patient Records regulations: The Federal rules restrict any use of the information to criminally investigate or prosecute any alcohol or drug abuse patient.[facility] HospitalIn the event this information is protected by the Federal Confidentiality of Alcohol and Drug Abuse Patient Records regulations: The Federal rules restrict any use of the information to criminally investigate or prosecute any alcohol or drug abuse patient.[facility] HospitalIn the event this information is protected by the Federal Confidentiality of Alcohol and Drug Abuse Patient Records regulations: The Federal rules restrict any use of the information to criminally investigate or prosecute any alcohol or drug abuse patient.[facility] HospitalIn the event this information is protected by the Federal Confidentiality of Alcohol and Drug Abuse Patient Records regulations: The Federal rules restrict any use of the information to criminally investigate or prosecute any alcohol or drug abuse patient.[facility] HospitalIn the event this information is protected by the Federal Confidentiality of Alcohol and Drug Abuse Patient Records regulations: The Federal rules restrict any use of the information to criminally investigate or prosecute any alcohol or drug abuse patient.[facility] HospitalIn the event this information is protected by the Federal Confidentiality of Alcohol and Drug Abuse Patient Records regulations: The Federal rules restrict any use of the information to criminally investigate or prosecute any alcohol or drug abuse patient.[facility] HospitalIn the event this information is protected by the Federal Confidentiality of Alcohol and Drug Abuse Patient Records regulations: The Federal rules restrict any use of the information to criminally investigate or prosecute any alcohol or drug abuse patient.[facility] HospitalIn the event this information is protected by the Federal Confidentiality of Alcohol and Drug Abuse Patient Records regulations: The Federal rules restrict any use of the information to criminally investigate or prosecute any alcohol or drug abuse patient.[facility] HospitalIn the event this information is protected by the Federal Confidentiality of Alcohol and Drug Abuse Patient Records regulations: The Federal rules restrict any use of the information to criminally investigate or prosecute any alcohol or drug abuse patient.[facility] HospitalIn the event this information is protected by the Federal Confidentiality of Alcohol and Drug Abuse Patient Records regulations: The Federal rules restrict any use of the information to criminally investigate or prosecute any alcohol or drug abuse patient.[facility] HospitalIn the event this information is protected by the Federal Confidentiality of Alcohol and Drug Abuse Patient Records regulations: The Federal rules restrict any use of the information to criminally investigate or prosecute any alcohol or drug abuse patient.[facility] HospitalIn the event this information is protected by the Federal Confidentiality of Alcohol and Drug Abuse Patient Records regulations: The Federal rules restrict any use of the information to criminally investigate or prosecute any alcohol or drug abuse patient.[facility] HospitalIn the event this information is protected by the Federal Confidentiality of Alcohol and Drug Abuse Patient Records regulations: The Federal rules restrict any use of the information to criminally investigate or prosecute any alcohol or drug abuse patient.[facility] HospitalIn the event this information is protected by the Federal Confidentiality of Alcohol and Drug Abuse Patient Records regulations: The Federal rules restrict any use of the information to criminally investigate or prosecute any alcohol or drug abuse patient.[facility] HospitalIn the event this information is protected by the Federal Confidentiality of Alcohol and Drug Abuse Patient Records regulations: The Federal rules restrict any use of the information to criminally investigate or prosecute any alcohol or drug abuse patient.[facility] HospitalIn the event this information is protected by the Federal Confidentiality of Alcohol and Drug Abuse Patient Records regulations: The Federal rules restrict any use of the information to criminally investigate or prosecute any alcohol or drug abuse patient.[facility] HospitalIn the event this information is protected by the Federal Confidentiality of Alcohol and Drug Abuse Patient Records regulations: The Federal rules restrict any use of the information to criminally investigate or prosecute any alcohol or drug abuse patient.[facility] HospitalIn the event this information is protected by the Federal Confidentiality of Alcohol and Drug Abuse Patient Records regulations: The Federal rules restrict any use of the information to criminally investigate or prosecute any alcohol or drug abuse patient.[facility] HospitalIn the event this information is protected by the Federal Confidentiality of Alcohol and Drug Abuse Patient Records regulations: The Federal rules restrict any use of the information to criminally investigate or prosecute any alcohol or drug abuse patient.[facility] HospitalIn the event this information is protected by the Federal Confidentiality of Alcohol and Drug Abuse Patient Records regulations: The Federal rules restrict any use of the information to criminally investigate or prosecute any alcohol or drug abuse patient.[facility] HospitalIn the event this information is protected by the Federal Confidentiality of Alcohol and Drug Abuse Patient Records regulations: The Federal rules restrict any use of the information to criminally investigate or prosecute any alcohol or drug abuse patient.[facility] HospitalIn the event this information is protected by the Federal Confidentiality of Alcohol and Drug Abuse Patient Records regulations: The Federal rules restrict any use of the information to criminally investigate or prosecute any alcohol or drug abuse patient.[facility] HospitalIn the event this information is protected by the Federal Confidentiality of Alcohol and Drug Abuse Patient Records regulations: The Federal rules restrict any use of the information to criminally investigate or prosecute any alcohol or drug abuse patient.[facility] HospitalIn the event this information is protected by the Federal Confidentiality of Alcohol and Drug Abuse Patient Records regulations: The Federal rules restrict any use of the information to criminally investigate or prosecute any alcohol or drug abuse patient.[facility] HospitalIn the event this information is protected by the Federal Confidentiality of Alcohol and Drug Abuse Patient Records regulations: The Federal rules restrict any use of the information to criminally investigate or prosecute any alcohol or drug abuse patient.[facility] HospitalIn the event this information is protected by the Federal Confidentiality of Alcohol and Drug Abuse Patient Records regulations: The Federal rules restrict any use of the information to criminally investigate or prosecute any alcohol or drug abuse patient.[facility] HospitalIn the event this information is protected by the Federal Confidentiality of Alcohol and Drug Abuse Patient Records regulations: The Federal rules restrict any use of the information to criminally investigate or prosecute any alcohol or drug abuse patient.[facility] HospitalIn the event this information is protected by the Federal Confidentiality of Alcohol and Drug Abuse Patient Records regulations: The Federal rules restrict any use of the information to criminally investigate or prosecute any alcohol or drug abuse patient.[facility] HospitalIn the event this information is protected by the Federal Confidentiality of Alcohol and Drug Abuse Patient Records regulations: The Federal rules restrict any use of the information to criminally investigate or prosecute any alcohol or drug abuse patient.[facility] HospitalIn the event this information is protected by the Federal Confidentiality of Alcohol and Drug Abuse Patient Records regulations: The Federal rules restrict any use of the information to criminally investigate or prosecute any alcohol or drug abuse patient.[facility] HospitalIn the event this information is protected by the Federal Confidentiality of Alcohol and Drug Abuse Patient Records regulations: The Federal rules restrict any use of the information to criminally investigate or prosecute any alcohol or drug abuse patient.[facility] HospitalIn the event this information is protected by the Federal Confidentiality of Alcohol and Drug Abuse Patient Records regulations: The Federal rules restrict any use of the information to criminally investigate or prosecute any alcohol or drug abuse patient.[facility] HospitalIn the event this information is protected by the Federal Confidentiality of Alcohol and Drug Abuse Patient Records regulations: The Federal rules restrict any use of the information to criminally investigate or prosecute any alcohol or drug abuse patient.[facility] HospitalIn the event this information is protected by the Federal Confidentiality of Alcohol and Drug Abuse Patient Records regulations: The Federal rules restrict any use of the information to criminally investigate or prosecute any alcohol or drug abuse patient.[facility] HospitalIn the event this information is protected by the Federal Confidentiality of Alcohol and Drug Abuse Patient Records regulations: The Federal rules restrict any use of the information to criminally investigate or prosecute any alcohol or drug abuse patient.[facility] HospitalIn the event this information is protected by the Federal Confidentiality of Alcohol and Drug Abuse Patient Records regulations: The Federal rules restrict any use of the information to criminally investigate or prosecute any alcohol or drug abuse patient.[facility] HospitalIn the event this information is protected by the Federal Confidentiality of Alcohol and Drug Abuse Patient Records regulations: The Federal rules restrict any use of the information to criminally investigate or prosecute any alcohol or drug abuse patient.[facility] HospitalIn the event this information is protected by the Federal Confidentiality of Alcohol and Drug Abuse Patient Records regulations: The Federal rules restrict any use of the information to criminally investigate or prosecute any alcohol or drug abuse patient.[facility] HospitalIn the event this information is protected by the Federal Confidentiality of Alcohol and Drug Abuse Patient Records regulations: The Federal rules restrict any use of the information to criminally investigate or prosecute any alcohol or drug abuse patient.[facility] HospitalIn the event this information is protected by the Federal Confidentiality of Alcohol and Drug Abuse Patient Records regulations: The Federal rules restrict any use of the information to criminally investigate or prosecute any alcohol or drug abuse patient.[facility] HospitalIn the event this information is protected [...] alcohol or drug abuse patient.[facility] HospitalIn the event this information is protected by the Federal Confidentiality of Alcohol and Drug Abuse Patient Records regulations: The Federal rules restrict any use of the information to criminally investigate or prosecute any alcohol or drug abuse patient.[facility] HospitalIn the event this information is protected by the Federal Confidentiality of Alcohol and Drug Abuse Patient Records regulations: The Federal rules restrict any use of the information to criminally investigate or prosecute any alcohol or drug abuse patient.[facility] HospitalIn the event this information is protected by the Federal Confidentiality of Alcohol and Drug Abuse Patient Records regulations: The Federal rules restrict any use of the information to criminally investigate or prosecute any alcohol or drug abuse patient.[facility] HospitalIn the event this information is protected by the Federal Confidentiality of Alcohol and Drug Abuse Patient Records regulations: The Federal rules restrict any use of the information to criminally investigate or prosecute any alcohol or drug abuse patient.[facility] HospitalIn the event this information is protected by the Federal Confidentiality of Alcohol and Drug Abuse Patient Records regulations: The Federal rules restrict any use of the information to criminally investigate or prosecute any alcohol or drug abuse patient.[facility] HospitalIn the event this information is protected by the Federal Confidentiality of Alcohol and Drug Abuse Patient Records regulations: The Federal rules restrict any use of the information to criminally investigate or prosecute any alcohol or drug abuse patient.[facility] HospitalIn the event this information is protected by the Federal Confidentiality of Alcohol and Drug Abuse Patient Records regulations: The Federal rules restrict any use of the information to criminally investigate or prosecute any alcohol or drug abuse patient.[facility] HospitalIn the event this information is protected by the Federal Confidentiality of Alcohol and Drug Abuse Patient Records regulations: The Federal rules restrict any use of the information to criminally investigate or prosecute any alcohol or drug abuse patient.[facility] HospitalIn the event this information is protected by the Federal Confidentiality of Alcohol and Drug Abuse Patient Records regulations: The Federal rules restrict any use of the information to criminally investigate or prosecute any alcohol or drug abuse patient.[facility] HospitalIn the event this information is protected by the Federal Confidentiality of Alcohol and Drug Abuse Patient Records regulations: The Federal rules restrict any use of the information to criminally investigate or prosecute any alcohol or drug abuse patient.[facility] HospitalIn the event this information is protected by the Federal Confidentiality of Alcohol and Drug Abuse Patient Records regulations: The Federal rules restrict any use of the information to criminally investigate or prosecute any alcohol or drug abuse patient.[facility] HospitalIn the event this information is protected by the Federal Confidentiality of Alcohol and Drug Abuse Patient Records regulations: The Federal rules restrict any use of the information to criminally investigate or prosecute any alcohol or drug abuse patient.[facility] HospitalIn the event this information is protected by the Federal Confidentiality of Alcohol and Drug Abuse Patient Records regulations: The Federal rules restrict any use of the information to criminally investigate or prosecute any alcohol or drug abuse patient.[facility] HospitalIn the event this information is protected by the Federal Confidentiality of Alcohol and Drug Abuse Patient Records regulations: The Federal rules restrict any use of the information to criminally investigate or prosecute any alcohol or drug abuse patient.[facility] HospitalIn the event this information is protected by the Federal Confidentiality of Alcohol and Drug Abuse Patient Records regulations: The Federal rules restrict any use of the information to criminally investigate or prosecute any alcohol or drug abuse patient.[facility] HospitalIn the event this information is protected by the Federal Confidentiality of Alcohol and Drug Abuse Patient Records regulations: The Federal rules restrict any use of the information to criminally investigate or prosecute any alcohol or drug abuse patient.[facility] HospitalIn the event this information is protected by the Federal Confidentiality of Alcohol and Drug Abuse Patient Records regulations: The Federal rules restrict any use of the information to criminally investigate or prosecute any alcohol or drug abuse patient.[facility] HospitalIn the event this information is protected by the Federal Confidentiality of Alcohol and Drug Abuse Patient Records regulations: The Federal rules restrict any use of the information to criminally investigate or prosecute any alcohol or drug abuse patient.[facility] HospitalIn the event this information is protected by the Federal Confidentiality of Alcohol and Drug Abuse Patient Records regulations: The Federal rules restrict any use of the information to criminally investigate or prosecute any alcohol or drug abuse patient.[facility] HospitalIn the event this information is protected by the Federal Confidentiality of Alcohol and Drug Abuse Patient Records regulations: The Federal rules restrict any use of the information to criminally investigate or prosecute any alcohol or drug abuse patient.[facility] HospitalIn the event this information is protected by the Federal Confidentiality of Alcohol and Drug Abuse Patient Records regulations: The Federal rules restrict any use of the information to criminally investigate or prosecute any alcohol or drug abuse patient.[facility] HospitalIn the event this information is protected by the Federal Confidentiality of Alcohol and Drug Abuse Patient Records regulations: The Federal rules restrict any use of the information to criminally investigate or prosecute any alcohol or drug abuse patient.[facility] HospitalIn the event this information is protected by the Federal Confidentiality of Alcohol and Drug Abuse Patient Records regulations: The Federal rules restrict any use of the information to criminally investigate or prosecute any alcohol or drug abuse patient.[facility] HospitalIn the event this information is protected by the Federal Confidentiality of Alcohol and Drug Abuse Patient Records regulations: The Federal rules restrict any use of the information to criminally investigate or prosecute any alcohol or drug abuse patient.[facility] HospitalIn the event this information is protected by the Federal Confidentiality of Alcohol and Drug Abuse Patient Records regulations: The Federal rules restrict any use of the information to criminally investigate or prosecute any alcohol or drug abuse patient.[facility] HospitalIn the event this information is protected by the Federal Confidentiality of Alcohol and Drug Abuse Patient Records regulations: The Federal rules restrict any use of the information to criminally investigate or prosecute any alcohol or drug abuse patient.[facility] HospitalIn the event this information is protected by the Federal Confidentiality of Alcohol and Drug Abuse Patient Records regulations: The Federal rules restrict any use of the information to criminally investigate or prosecute any alcohol or drug abuse patient.[facility] HospitalIn the event this information is protected by the Federal Confidentiality of Alcohol and Drug Abuse Patient Records regulations: The Federal rules restrict any use of the information to criminally investigate or prosecute any alcohol or drug abuse patient.[facility] HospitalIn the event this information is protected by the Federal Confidentiality of Alcohol and Drug Abuse Patient Records regulations: The Federal rules restrict any use of the information to criminally investigate or prosecute any alcohol or drug abuse patient.[facility] HospitalIn the event this information is protected by the Federal Confidentiality of Alcohol and Drug Abuse Patient Records regulations: The Federal rules restrict any use of the information to criminally investigate or prosecute any alcohol or drug abuse patient.[facility] HospitalIn the event this information is protected by the Federal Confidentiality of Alcohol and Drug Abuse Patient Records regulations: The Federal rules restrict any use of the information to criminally investigate or prosecute any alcohol or drug abuse patient.[facility] HospitalIn the event this information is protected by the Federal Confidentiality of Alcohol and Drug Abuse Patient Records regulations: The Federal rules restrict any use of the information to criminally investigate or prosecute any alcohol or drug abuse patient.[facility] HospitalIn the event this information is protected by the Federal Confidentiality of Alcohol and Drug Abuse Patient Records regulations: The Federal rules restrict any use of the information to criminally investigate or prosecute any alcohol or drug abuse patient.[facility] HospitalIn the event this information is protected by the Federal Confidentiality of Alcohol and Drug Abuse Patient Records regulations: The Federal rules restrict any use of the information to criminally investigate or prosecute any alcohol or drug abuse patient.[facility] HospitalIn the event this information is protected by the Federal Confidentiality of Alcohol and Drug Abuse Patient Records regulations: The Federal rules restrict any use of the information to criminally investigate or prosecute any alcohol or drug abuse patient.[facility] HospitalIn the event this information is protected by the Federal Confidentiality of Alcohol and Drug Abuse Patient Records regulations: The Federal rules restrict any use of the information to criminally investigate or prosecute any alcohol or drug abuse patient.[facility] HospitalIn the event this information is protected by the Federal Confidentiality of Alcohol and Drug Abuse Patient Records regulations: The Federal rules restrict any use of the information to criminally investigate or prosecute any alcohol or drug abuse patient.[facility] HospitalIn the event this information is protected by the Federal Confidentiality of Alcohol and Drug Abuse Patient Records regulations: The Federal rules restrict any use of the information to criminally investigate or prosecute any alcohol or drug abuse patient.[facility] HospitalIn the event this information is protected by the Federal Confidentiality of Alcohol and Drug Abuse Patient Records regulations: The Federal rules restrict any use of the information to criminally investigate or prosecute any alcohol or drug abuse patient.[facility] HospitalIn the event this information is protected by the Federal Confidentiality of Alcohol and Drug Abuse Patient Records regulations: The Federal rules restrict any use of the information to criminally investigate or prosecute any alcohol or drug abuse patient.[facility] HospitalIn the event this information is protected by the Federal Confidentiality of Alcohol and Drug Abuse Patient Records regulations: The Federal rules restrict any use of the information to criminally investigate or prosecute any alcohol or drug abuse patient.[facility] HospitalIn the event this information is protected by the Federal Confidentiality of Alcohol and Drug Abuse Patient Records regulations: The Federal rules restrict any use of the information to criminally investigate or prosecute any alcohol or drug abuse patient.[facility] HospitalIn the event this information is protected by the Federal Confidentiality of Alcohol and Drug Abuse Patient Records regulations: The Federal rules restrict any use of the information to criminally investigate or prosecute any alcohol or drug abuse patient.[facility] HospitalIn the event this information is protected by the Federal Confidentiality of Alcohol and Drug Abuse Patient Records regulations: The Federal rules restrict any use of the information to criminally investigate or prosecute any alcohol or drug abuse patient.[facility] HospitalIn the event this information is protected by the Federal Confidentiality of Alcohol and Drug Abuse Patient Records regulations: The Federal rules restrict any use of the information to criminally investigate or prosecute any alcohol or drug abuse patient.[facility] HospitalIn the event this information is protected by the Federal Confidentiality of Alcohol and Drug Abuse Patient Records regulations: The Federal rules restrict any use of the information to criminally investigate or prosecute any alcohol or drug abuse patient.[facility] HospitalIn the event this information is protected by the Federal Confidentiality of Alcohol and Drug Abuse Patient Records regulations: The Federal rules restrict any use of the information to criminally investigate or prosecute any alcohol or drug abuse patient.[facility] HospitalIn the event this information is protected by the Federal Confidentiality of Alcohol and Drug Abuse Patient Records regulations: The Federal rules restrict any use of the information to criminally investigate or prosecute any alcohol or drug abuse patient.[facility] HospitalIn the event this information is protected [...] alcohol or drug abuse patient.[facility] HospitalIn the event this information is protected by the Federal Confidentiality of Alcohol and Drug Abuse Patient Records regulations: The Federal rules restrict any use of the information to criminally investigate or prosecute any alcohol or drug abuse patient.[facility] HospitalIn the event this information is protected by the Federal Confidentiality of Alcohol and Drug Abuse Patient Records regulations: The Federal rules restrict any use of the information to criminally investigate or prosecute any alcohol or drug abuse patient.[facility] HospitalIn the event this information is protected by the Federal Confidentiality of Alcohol and Drug Abuse Patient Records regulations: The Federal rules restrict any use of the information to criminally investigate or prosecute any alcohol or drug abuse patient.[facility] HospitalIn the event this information is protected by the Federal Confidentiality of Alcohol and Drug Abuse Patient Records regulations: The Federal rules restrict any use of the information to criminally investigate or prosecute any alcohol or drug abuse patient.[facility] HospitalIn the event this information is protected by the Federal Confidentiality of Alcohol and Drug Abuse Patient Records regulations: The Federal rules restrict any use of the information to criminally investigate or prosecute any alcohol or drug abuse patient.[facility] HospitalIn the event this information is protected by the Federal Confidentiality of Alcohol and Drug Abuse Patient Records regulations: The Federal rules restrict any use of the information to criminally investigate or prosecute any alcohol or drug abuse patient.[facility] HospitalIn the event this information is protected by the Federal Confidentiality of Alcohol and Drug Abuse Patient Records regulations: The Federal rules restrict any use of the information to criminally investigate or prosecute any alcohol or drug abuse patient.[facility] HospitalIn the event this information is protected by the Federal Confidentiality of Alcohol and Drug Abuse Patient Records regulations: The Federal rules restrict any use of the information to criminally investigate or prosecute any alcohol or drug abuse patient.[facility] HospitalIn the event this information is protected by the Federal Confidentiality of Alcohol and Drug Abuse Patient Records regulations: The Federal rules restrict any use of the information to criminally investigate or prosecute any alcohol or drug abuse patient.[facility] HospitalIn the event this information is protected by the Federal Confidentiality of Alcohol and Drug Abuse Patient Records regulations: The Federal rules restrict any use of the information to criminally investigate or prosecute any alcohol or drug abuse patient.[facility] HospitalIn the event this information is protected by the Federal Confidentiality of Alcohol and Drug Abuse Patient Records regulations: The Federal rules restrict any use of the information to criminally investigate or prosecute any alcohol or drug abuse patient.[facility] HospitalIn the event this information is protected by the Federal Confidentiality of Alcohol and Drug Abuse Patient Records regulations: The Federal rules restrict any use of the information to criminally investigate or prosecute any alcohol or drug abuse patient.[facility] HospitalIn the event this information is protected by the Federal Confidentiality of Alcohol and Drug Abuse Patient Records regulations: The Federal rules restrict any use of the information to criminally investigate or prosecute any alcohol or drug abuse patient.[facility] HospitalIn the event this information is protected by the Federal Confidentiality of Alcohol and Drug Abuse Patient Records regulations: The Federal rules restrict any use of the information to criminally investigate or prosecute any alcohol or drug abuse patient.[facility] HospitalIn the event this information is protected by the Federal Confidentiality of Alcohol and Drug Abuse Patient Records regulations: The Federal rules restrict any use of the information to criminally investigate or prosecute any alcohol or drug abuse patient.[facility] HospitalIn the event this information is protected by the Federal Confidentiality of Alcohol and Drug Abuse Patient Records regulations: The Federal rules restrict any use of the information to criminally investigate or prosecute any alcohol or drug abuse patient.[facility] HospitalIn the event this information is protected by the Federal Confidentiality of Alcohol and Drug Abuse Patient Records regulations: The Federal rules restrict any use of the information to criminally investigate or prosecute any alcohol or drug abuse patient.[facility] HospitalIn the event this information is protected by the Federal Confidentiality of Alcohol and Drug Abuse Patient Records regulations: The Federal rules restrict any use of the information to criminally investigate or prosecute any alcohol or drug abuse patient.[facility] HospitalIn the event this information is protected by the Federal Confidentiality of Alcohol and Drug Abuse Patient Records regulations: The Federal rules restrict any use of the information to criminally investigate or prosecute any alcohol or drug abuse patient.[facility] HospitalIn the event this information is protected by the Federal Confidentiality of Alcohol and Drug Abuse Patient Records regulations: The Federal rules restrict any use of the information to criminally investigate or prosecute any alcohol or drug abuse patient.[facility] HospitalIn the event this information is protected by the Federal Confidentiality of Alcohol and Drug Abuse Patient Records regulations: The Federal rules restrict any use of the information to criminally investigate or prosecute any alcohol or drug abuse patient.[facility] HospitalIn the event this information is protected by the Federal Confidentiality of Alcohol and Drug Abuse Patient Records regulations: The Federal rules restrict any use of the information to criminally investigate or prosecute any alcohol or drug abuse patient.[facility] HospitalIn the event this information is protected by the Federal Confidentiality of Alcohol and Drug Abuse Patient Records regulations: The Federal rules restrict any use of the information to criminally investigate or prosecute any alcohol or drug abuse patient.[facility] HospitalIn the event this information is protected by the Federal Confidentiality of Alcohol and Drug Abuse Patient Records regulations: The Federal rules restrict any use of the information to criminally investigate or prosecute any alcohol or drug abuse patient.[facility] HospitalIn the event this information is protected by the Federal Confidentiality of Alcohol and Drug Abuse Patient Records regulations: The Federal rules restrict any use of the information to criminally investigate or prosecute any alcohol or drug abuse patient.[facility] HospitalIn the event this information is protected by the Federal Confidentiality of Alcohol and Drug Abuse Patient Records regulations: The Federal rules restrict any use of the information to criminally investigate or prosecute any alcohol or drug abuse patient.[facility] HospitalIn the event this information is protected by the Federal Confidentiality of Alcohol and Drug Abuse Patient Records regulations: The Federal rules restrict any use of the information to criminally investigate or prosecute any alcohol or drug abuse patient.[facility] HospitalIn the event this information is protected by the Federal Confidentiality of Alcohol and Drug Abuse Patient Records regulations: The Federal rules restrict any use of the information to criminally investigate or prosecute any alcohol or drug abuse patient.[facility] HospitalIn the event this information is protected by the Federal Confidentiality of Alcohol and Drug Abuse Patient Records regulations: The Federal rules restrict any use of the information to criminally investigate or prosecute any alcohol or drug abuse patient.[facility] HospitalIn the event this information is protected by the Federal Confidentiality of Alcohol and Drug Abuse Patient Records regulations: The Federal rules restrict any use of the information to criminally investigate or prosecute any alcohol or drug abuse patient.[facility] HospitalIn the event this information is protected by the Federal Confidentiality of Alcohol and Drug Abuse Patient Records regulations: The Federal rules restrict any use of the information to criminally investigate or prosecute any alcohol or drug abuse patient.[facility] HospitalIn the event this information is protected by the Federal Confidentiality of Alcohol and Drug Abuse Patient Records regulations: The Federal rules restrict any use of the information to criminally investigate or prosecute any alcohol or drug abuse patient.[facility] HospitalIn the event this information is protected by the Federal Confidentiality of Alcohol and Drug Abuse Patient Records regulations: The Federal rules restrict any use of the information to criminally investigate or prosecute any alcohol or drug abuse patient.[facility] HospitalIn the event this information is protected by the Federal Confidentiality of Alcohol and Drug Abuse Patient Records regulations: The Federal rules restrict any use of the information to criminally investigate or prosecute any alcohol or drug abuse patient.[facility] HospitalIn the event this information is protected by the Federal Confidentiality of Alcohol and Drug Abuse Patient Records regulations: The Federal rules restrict any use of the information to criminally investigate or prosecute any alcohol or drug abuse patient.[facility] HospitalIn the event this information is protected by the Federal Confidentiality of Alcohol and Drug Abuse Patient Records regulations: The Federal rules restrict any use of the information to criminally investigate or prosecute any alcohol or drug abuse patient.[facility] HospitalIn the event this information is protected by the Federal Confidentiality of Alcohol and Drug Abuse Patient Records regulations: The Federal rules restrict any use of the information to criminally investigate or prosecute any alcohol or drug abuse patient.[facility] HospitalIn the event this information is protected by the Federal Confidentiality of Alcohol and Drug Abuse Patient Records regulations: The Federal rules restrict any use of the information to criminally investigate or prosecute any alcohol or drug abuse patient.[facility] HospitalIn the event this information is protected by the Federal Confidentiality of Alcohol and Drug Abuse Patient Records regulations: The Federal rules restrict any use of the information to criminally investigate or prosecute any alcohol or drug abuse patient.[facility] HospitalIn the event this information is protected by the Federal Confidentiality of Alcohol and Drug Abuse Patient Records regulations: The Federal rules restrict any use of the information to criminally investigate or prosecute any alcohol or drug abuse patient.[facility] HospitalIn the event this information is protected by the Federal Confidentiality of Alcohol and Drug Abuse Patient Records regulations: The Federal rules restrict any use of the information to criminally investigate or prosecute any alcohol or drug abuse patient.[facility] HospitalIn the event this information is protected by the Federal Confidentiality of Alcohol and Drug Abuse Patient Records regulations: The Federal rules restrict any use of the information to criminally investigate or prosecute any alcohol or drug abuse patient.[facility] HospitalIn the event this information is protected by the Federal Confidentiality of Alcohol and Drug Abuse Patient Records regulations: The Federal rules restrict any use of the information to criminally investigate or prosecute any alcohol or drug abuse patient.[facility] HospitalIn the event this information is protected by the Federal Confidentiality of Alcohol and Drug Abuse Patient Records regulations: The Federal rules restrict any use of the information to criminally investigate or prosecute any alcohol or drug abuse patient.[facility] HospitalIn the event this information is protected by the Federal Confidentiality of Alcohol and Drug Abuse Patient Records regulations: The Federal rules restrict any use of the information to criminally investigate or prosecute any alcohol or drug abuse patient.[facility] HospitalIn the event this information is protected by the Federal Confidentiality of Alcohol and Drug Abuse Patient Records regulations: The Federal rules restrict any use of the information to criminally investigate or prosecute any alcohol or drug abuse patient.[facility] HospitalIn the event this information is protected by the Federal Confidentiality of Alcohol and Drug Abuse Patient Records regulations: The Federal rules restrict any use of the information to criminally investigate or prosecute any alcohol or drug abuse patient.[facility] HospitalIn the event this information is protected by the Federal Confidentiality of Alcohol and Drug Abuse Patient Records regulations: The Federal rules restrict any use of the information to criminally investigate or prosecute any alcohol or drug abuse patient.[facility] HospitalIn the event this information is protected [...] alcohol or drug abuse patient.[facility] HospitalIn the event this information is protected by the Federal Confidentiality of Alcohol and Drug Abuse Patient Records regulations: The Federal rules restrict any use of the information to criminally investigate or prosecute any alcohol or drug abuse patient.[facility] HospitalIn the event this information is protected by the Federal Confidentiality of Alcohol and Drug Abuse Patient Records regulations: The Federal rules restrict any use of the information to criminally investigate or prosecute any alcohol or drug abuse patient.[facility] HospitalIn the event this information is protected by the Federal Confidentiality of Alcohol and Drug Abuse Patient Records regulations: The Federal rules restrict any use of the information to criminally investigate or prosecute any alcohol or drug abuse patient.[facility] HospitalIn the event this information is protected by the Federal Confidentiality of Alcohol and Drug Abuse Patient Records regulations: The Federal rules restrict any use of the information to criminally investigate or prosecute any alcohol or drug abuse patient.[facility] HospitalIn the event this information is protected by the Federal Confidentiality of Alcohol and Drug Abuse Patient Records regulations: The Federal rules restrict any use of the information to criminally investigate or prosecute any alcohol or drug abuse patient.[facility] HospitalIn the event this information is protected by the Federal Confidentiality of Alcohol and Drug Abuse Patient Records regulations: The Federal rules restrict any use of the information to criminally investigate or prosecute any alcohol or drug abuse patient.[facility] HospitalIn the event this information is protected by the Federal Confidentiality of Alcohol and Drug Abuse Patient Records regulations: The Federal rules restrict any use of the information to criminally investigate or prosecute any alcohol or drug abuse patient.[facility] HospitalIn the event this information is protected by the Federal Confidentiality of Alcohol and Drug Abuse Patient Records regulations: The Federal rules restrict any use of the information to criminally investigate or prosecute any alcohol or drug abuse patient.[facility] HospitalIn the event this information is protected by the Federal Confidentiality of Alcohol and Drug Abuse Patient Records regulations: The Federal rules restrict any use of the information to criminally investigate or prosecute any alcohol or drug abuse patient.[facility] HospitalIn the event this information is protected by the Federal Confidentiality of Alcohol and Drug Abuse Patient Records regulations: The Federal rules restrict any use of the information to criminally investigate or prosecute any alcohol or drug abuse patient.[facility] HospitalIn the event this information is protected by the Federal Confidentiality of Alcohol and Drug Abuse Patient Records regulations: The Federal rules restrict any use of the information to criminally investigate or prosecute any alcohol or drug abuse patient.[facility] HospitalIn the event this information is protected by the Federal Confidentiality of Alcohol and Drug Abuse Patient Records regulations: The Federal rules restrict any use of the information to criminally investigate or prosecute any alcohol or drug abuse patient.[facility] HospitalIn the event this information is protected by the Federal Confidentiality of Alcohol and Drug Abuse Patient Records regulations: The Federal rules restrict any use of the information to criminally investigate or prosecute any alcohol or drug abuse patient.[facility] HospitalIn the event this information is protected by the Federal Confidentiality of Alcohol and Drug Abuse Patient Records regulations: The Federal rules restrict any use of the information to criminally investigate or prosecute any alcohol or drug abuse patient.[facility] HospitalIn the event this information is protected by the Federal Confidentiality of Alcohol and Drug Abuse Patient Records regulations: The Federal rules restrict any use of the information to criminally investigate or prosecute any alcohol or drug abuse patient.[facility] HospitalIn the event this information is protected by the Federal Confidentiality of Alcohol and Drug Abuse Patient Records regulations: The Federal rules restrict any use of the information to criminally investigate or prosecute any alcohol or drug abuse patient.[facility] HospitalIn the event this information is protected by the Federal Confidentiality of Alcohol and Drug Abuse Patient Records regulations: The Federal rules restrict any use of the information to criminally investigate or prosecute any alcohol or drug abuse patient.[facility] HospitalIn the event this information is protected by the Federal Confidentiality of Alcohol and Drug Abuse Patient Records regulations: The Federal rules restrict any use of the information to criminally investigate or prosecute any alcohol or drug abuse patient.[facility] HospitalIn the event this information is protected by the Federal Confidentiality of Alcohol and Drug Abuse Patient Records regulations: The Federal rules restrict any use of the information to criminally investigate or prosecute any alcohol or drug abuse patient.[facility] HospitalIn the event this information is protected by the Federal Confidentiality of Alcohol and Drug Abuse Patient Records regulations: The Federal rules restrict any use of the information to criminally investigate or prosecute any alcohol or drug abuse patient.[facility] HospitalIn the event this information is protected by the Federal Confidentiality of Alcohol and Drug Abuse Patient Records regulations: The Federal rules restrict any use of the information to criminally investigate or prosecute any alcohol or drug abuse patient.[facility] HospitalIn the event this information is protected by the Federal Confidentiality of Alcohol and Drug Abuse Patient Records regulations: The Federal rules restrict any use of the information to criminally investigate or prosecute any alcohol or drug abuse patient.[facility] HospitalIn the event this information is protected by the Federal Confidentiality of Alcohol and Drug Abuse Patient Records regulations: The Federal rules restrict any use of the information to criminally investigate or prosecute any alcohol or drug abuse patient.[facility] HospitalIn the event this information is protected by the Federal Confidentiality of Alcohol and Drug Abuse Patient Records regulations: The Federal rules restrict any use of the information to criminally investigate or prosecute any alcohol or drug abuse patient.[facility] HospitalIn the event this information is protected by the Federal Confidentiality of Alcohol and Drug Abuse Patient Records regulations: The Federal rules restrict any use of the information to criminally investigate or prosecute any alcohol or drug abuse patient.[facility] Care Teams (unrecognized sec tion and [...] Inactive Member Role Status Dates 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 Active Start: January 17, 2025 End: January 17, 2025 Margie Arnett NP Attending Provider Active Start: January 17, 2025 End: January 17, 2025 Team Status: Active Member Role Status Dates 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 Active Start: January 31, 2025 Adolfo Kang MD Attending Provider Active Sta rt: January 31, 2025 Adolfo Kang MD Other Provider Active Start: January 31, 2025 Team Status: Inactive Member Role Status Dates 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 Active Start: February 14, [...] 2025 End: February 28, 2025 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 Active Start: February 28, 2025 End: February 28, 2025 Team Status: Active Member Role Status Dates 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 Active Start: November 21, 2024 Adolfo Kang MD Attending Provider Active Sta rt: November 21, 2024 Team Status: Inactive Member Role Status Dates 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 Active Start: November 21, 2024 End: November 21, 2024 Adolfo Kang MD Attending Provider Active Sta rt: November 21, 2024 End: November 21, 2024 Team Status: Active Member Role Status Dates 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 Active Start: November 22, [...] November 04, 2023 End: November 04, 2023 Through Operator Relationship Specialty Start Date End Date Gay Enciso, SALES APPRENTICE.[employer] [address] [place] [address] PCP - General Family Practice 10/24/21 Through Operator Relationship Specialty Start Date End Date Gay Enciso, SALES APPRENTICE.[employer] M[employer] [address] [place] [address] PCP - General Family Medicine 10/24/21 Manuel Ferris MD [address] [place] [address] Referring Family Medicine 02/12/22 Through Operator Relationship Specialty Start Date End Date Manuel Ferris MD [address] [place] [address] PCP - General Family Medicine 02/27/22 Manuel Ferris MD [address] [place] [address] Referring Family Medicine 02/12/22 Through Operator Relationship Specialty Start Date End Date Manuel Ferris MD [address] [place] [address] PCP - General Family Medicine 02/27/22 Manuel Ferris MD [address] [facility] [place] [address] Referring Family Medicine 02/12/22 Through Operator Relationship Specialty Start Date End Date Manuel Ferris MD [address] [facility] [place] [address] PCP - General Family Medicine 02/27/22 Manuel Ferris MD [address] [facility] [place] [address] Referring Family Medicine 02/12/22 Through Operator Relationship Specialty Start Date End Date Manuel Ferris MD [address] [facility] [place] [address] PCP - General Family Medicine 02/27/22 Manuel Ferris MD [address] [facility] [place] [address] Referring Family Medicine 02/12/22 Through Operator Relationship Specialty Start Date End Date Manuel Ferris MD [address] [facility] [place] [address] PCP - General Family Medicine 02/27/22 Manuel Ferris MD [address] [facility] [place] [address] Referring Family Medicine 02/12/22 Through Operator Relationship Specialty Start Date End Date Manuel Ferris MD [address] [facility] [place] [address] PCP - General Family Medicine 02/27/22 Manuel Ferris MD [address] [facility] [place] [address] Referring Family Medicine 02/12/22 Through Operator Relationship Specialty Start Date End Date Manuel Ferris MD [address] [facility] [place] [address] PCP - General Family Medicine 02/27/22 Manuel Ferris MD [address] [facility] [place] [address] Referring Family Medicine 02/12/22 Through Operator Relationship Specialty Start Date End Date Manuel Ferris MD [address] [facility] [place] [address] PCP - General Family Medicine 02/27/22 Manuel Ferris MD [address] [facility] [place] [address] Referring Family Medicine 02/12/22 Through Operator Relationship Specialty Start Date End Date Manuel Ferris MD [address] [facility] [place] [address] PCP - General Family Medicine 02/27/22 Manuel Ferris MD [address] [facility] [place] [address] Referring Family Medicine 02/12/22 Through Operator Relationship Specialty Start Date End Date Manuel Ferris MD [address] [facility] [place] [address] PCP - General Family Medicine 02/27/22 Manuel Ferris MD [address] [facility] [place] [address] Referring Family Medicine 02/12/22 Through Operator Relationship Specialty Start Date End Date Manuel Ferris MD [address] [facility] [place] [address] PCP - General Family Medicine 02/27/22 Manuel Ferris MD [address] [facility] [place] [address] Referring Family Medicine 02/12/22 Through Operator Relationship Specialty Start Date End Date Manuel Ferris MD [address] [facility] [place] [address] PCP - General Family Medicine 02/27/22 Manuel Ferris MD [address] [facility] [place] [address] Referring Family Medicine 02/12/22 Through Operator Relationship Specialty Start Date End Date Manuel Ferris MD [address] [facility] [place] [address] PCP - General Family Medicine 02/27/22 Manuel Ferris MD [address] [facility] [place] [address] Referring Family Medicine 02/12/22 Through Operator Relationship Specialty Start Date End Date Manuel Ferris MD [address] [facility] [place] [address] PCP - General Family Medicine 02/27/22 Manuel Ferris MD [address] [facility] [place] [address] Referring Family Medicine 02/12/22 Through Operator Relationship Specialty Start Date End Date Manuel Ferris MD [address] [facility] [place] [address] PCP - General Family Medicine 02/27/22 Manuel Ferris MD [address] [facility] [place] [address] Referring Family Medicine 02/12/22 Through Operator Relationship Specialty Start Date End Date Manuel Ferris MD [address] [facility] [place] [address] PCP - General Family Medicine 02/27/22 Manuel Ferris MD [address] [facility] [place] [address] Referring Family Medicine 02/12/22 Through Operator Relationship Specialty Start Date End Date Manuel Ferris MD [address] [facility] [place] [address] PCP - General Family Medicine 02/27/22 Manuel Ferris MD [address] [facility] [place] [address] Referring Family Medicine 02/12/22 Through Operator Relationship Specialty Start Date End Date Manuel Ferris MD [address] [facility] [place] [address] PCP - General Family Medicine 02/27/22 Manuel Ferris MD [address] [facility] [place] [address] Referring Family Medicine 02/12/22 Through Operator Relationship Specialty Start Date End Date Manuel Ferris MD [address] [facility] [place] [address] PCP - General Family Medicine 02/27/22 Manuel Ferris MD [address] [facility] [place] [address] Referring Family Medicine 02/12/22 Through Operator Relationship Specialty Start Date End Date Manuel Ferris MD [address] [facility] [place] [address] PCP - General Family Medicine 02/27/22 Manuel Ferris MD [address] [facility] [place] [address] Referring Family Medicine 02/12/22 Through Operator Relationship Specialty Start Date End Date Manuel Ferris MD [address] [facility] [place] [address] PCP - General Family Medicine 02/27/22 Manuel Ferris MD [address] [place] [address] Referring Family Medicine 02/12/22 Through Operator Relationship Specialty Start Date End Date Manuel Ferris MD PCP - General Family Medicine 02/27/22 Manuel Ferris MD Referring Family Medicine 02/12/22 Through Operator Relationship Specialty Start Date End Date Manuel Ferris MD PCP - General Family Medicine 02/27/22 Manuel Ferris MD Referring Family Medicine 02/12/22 Through Operator Relationship Specialty Start Date End Date Manuel Ferris MD PCP - General Family Medicine 02/27/22 Manuel Ferris MD Referring Family Medicine 02/12/22 Through Operator Relationship Specialty Start Date End Date Manuel Ferris MD PCP - General Family Medicine 02/27/22 Manuel Ferris MD Referring Family Medicine 02/12/22 Through Operator Relationship Specialty Start Date End Date Manuel Ferris MD PCP - General Family Medicine 02/27/22 Manuel Ferris MD Referring Family Medicine 02/12/22 Through Operator Relationship Specialty Start Date End Date Manuel Ferris MD PCP - General Family Medicine 02/27/22 Manuel Ferris MD Referring Family Medicine 02/12/22 Through Operator Relationship Specialty Start Date End Date Manuel Ferris MD PCP - General Family Medicine 02/27/22 Manuel Ferris MD Referring Family Medicine 02/12/22 Through Operator Relationship Specialty Start Date End Date Manuel Ferris MD PCP - General Family Medicine 02/27/22 Manuel Ferris MD Referring Family Medicine 02/12/22 Through Operator Relationship Specialty Start Date End Date Manuel Ferris MD PCP - General Family Medicine 02/27/22 Manuel Ferris MD Referring Family Medicine 02/12/22 Through Operator Relationship Specialty Start Date End Date Manuel Ferris MD PCP - General Family Medicine 02/27/22 Manuel Ferris MD Referring Family Medicine 02/12/22 Through Operator Relationship Specialty Start Date End Date Manuel Ferris MD PCP - General Family Medicine 02/27/22 Manuel Ferris MD Referring Family Medicine 02/12/22 Through Operator Relationship Specialty Start Date End Date Manuel Ferris MD PCP - General Family Medicine 02/27/22 Manuel Ferris MD Referring Family Medicine 02/12/22 Through Operator Relationship Specialty Start Date End Date Manuel Ferris MD PCP - General Family Medicine 02/27/22 Manuel Ferris MD Referring Family Medicine 02/12/22 Through Operator Relationship Specialty Start Date End Date Manuel Ferris MD PCP - General Family Medicine 02/27/22 Manuel Ferris MD Referring Family Medicine 02/12/22 Through Operator Relationship Specialty Start Date End Date Manuel Ferris MD PCP - General Family Medicine 02/27/22 Manuel Ferris MD Referring Family Medicine 02/12/22 Through Operator Relationship Specialty Start Date End Date Manuel Ferris MD PCP - General Family Medicine 02/27/22 Manuel Ferris MD Referring Family Medicine 02/12/22 Through Operator Relationship Specialty Start Date End Date Manuel Ferris MD PCP - General Family Medicine 02/27/22 Manuel Ferris MD Referring Family Medicine 02/12/22 Through Operator Relationship Specialty Start Date End Date Manuel Ferris MD PCP - General Family Medicine 02/27/22 Manuel Ferris MD Referring Family Medicine 02/12/22 Through Operator Relationship Specialty Start Date End Date Manuel Ferris MD PCP - General Family Medicine 02/27/22 Manuel Ferris MD Referring Family Medicine 02/12/22 Through Operator Relationship Specialty Start Date End Date Manuel Ferris MD PCP - General Family Medicine 02/27/22 Manuel Ferris MD Referring Family Medicine 02/12/22 Through Operator Relationship Specialty Start Date End Date Manuel Ferris MD PCP - General Family Medicine 02/27/22 Manuel Ferris MD Referring Family Medicine 02/12/22 Through Operator Relationship Specialty Start Date End Date Manuel Ferris MD PCP - General Family Medicine 02/27/22 Manuel Ferris MD Referring Family Medicine 02/12/22 Through Operator Relationship Specialty Start Date End Date Manuel Ferris MD PCP - General Family Medicine 02/27/22 Manuel Ferris MD Referring Family Medicine 02/12/22 Through Operator Relationship Specialty Start Date End Date Manuel Ferris MD PCP - General Family Medicine 02/27/22 Manuel Ferris MD Referring Family Medicine 02/12/22 Through Operator Relationship Specialty Start Date End Date Manuel Ferris MD PCP - General Family Medicine 02/27/22 Manuel Ferris MD Referring Family Medicine 02/12/22 Through Operator Relationship Specialty Start Date End Date Manuel Ferris MD PCP - General Family Medicine 02/27/22 Manuel Ferris MD Referring Family Medicine 02/12/22 Through Operator Relationship Specialty Start Date End Date Charles Nicole DO [address] [place] [address] PCP - General 10/22/18 Michelle Jasmine APRN-[employer]ER [address] [place] [address] [id number] Nurse Practitioner Cardiology 06/08/23 Through Operator Relationship Specialty Start Date End Date Gay Enciso SALES APPRENTICE-[employer] [address] [place] [address] PCP - General 07/13/23 Michelle Jasmine, SALES APPRENTICE-[employer] [address] [facility] [address] [place] [address] Nurse Practitioner Cardiology 06/08/23 Aurora Patel MD [address] [facility] [address] [place] [address] Consulting Physician Cardiology 06/23/23 Through Operator Relationship Specialty Start Date End Date Manuel Ferris MD PCP - General Family Medicine 02/27/22 Manuel Ferris MD Referring Family Medicine 02/12/22 Through Operator Relationship Specialty Start Date End Date Manuel Ferris MD PCP - General Family Medicine 02/27/22 Manuel Ferris MD Referring Family Medicine 02/12/22 Team Status: Active Member Role Status Dates Lui Salomon MD Primary Care Provider Active Start: July 28, 2023 Virgil Green MD Attending Provider Active S tart: July 28, 2023 Through Operator Relationship Specialty Start Date End Date Manuel Ferris MD PCP - General Family Medicine 02/27/22 Manuel Ferris MD Referring Family Medicine 02/12/22 Team Status: Inactive Member Role Status Dates Lui Salomon MD Primary Care Provider Active Start: December 16, 2023 End: December 16, 2023 Mirela Kelsey MD Attending Provider Active Sta rt: December 16, 2023 End: December 16, 2023 Through Operator Relationship Specialty Start Date End Date Manuel Ferris MD PCP - General Family Medicine 02/27/22 Manuel Ferris MD Referring Family Medicine 02/12/22 Through Operator Relationship Specialty Start Date End Date Manuel Ferris MD PCP - General Family Medicine 02/27/22 Manuel Ferris MD Referring Family Medicine 02/12/22 Through Operator Relationship Specialty Start Date End Date Manuel Ferris MD PCP - General Family Medicine 02/27/22 Manuel Ferris MD Referring Family Medicine 02/12/22 Through Operator Relationship Specialty Start Date End Date [...] February 28, 2024 End: February 28, 2024 Through Operator Relationship Specialty Start Date End Date Charles Nicole MD [address] [place] [address] PCP - General Family Medicine 02/09/24 Team Status: Inactive Member Role Status Dates WALESKA Galloway Primary Care Provider Active Start: March 16, 2024 End: March 16, 2024 Bandar Portillo APRN Attending Provider Active Start: March 16, 2024 End: March 16, 2024 Through Operator Relationship Specialty Start Date End Date Charles Nicole MD [address] [place] [address] PCP - General Family Medicine 02/09/24 Through Operator Relationship Specialty Start Date End Date Charles Nicole MD [address] [place] [address] PCP - General Family Medicine 02/09/24 Through Operator Relationship Specialty Start Date End Date Charles Nicole MD [address] [place] [address] PCP - General Family Medicine 02/09/24 Through Operator Relationship Specialty Start Date End Date Charles Nicole MD [address] [place] [address] PCP - General Family Medicine 02/09/24 Through Operator Relationship Specialty Start Date End Date Charles Nicole MD [address] [place] [address] PCP - General Family Medicine 02/09/24 Through Operator Relationship Specialty Start Date End Date Manuel Ferris MD PCP - General Family Medicine 02/27/22 Manuel Ferris MD Referring Family Medicine 02/12/22 Through Operator Relationship Specialty Start Date End Date Charles Nicole MD [address] [place] [address] PCP - General Family Medicine 02/09/24 Through Operator Relationship Specialty Start Date End Date Charles Nicole MD [address] [place] [address] PCP - General Family Medicine 02/09/24 Through Operator Relationship Specialty Start Date End Date Charles Nicole MD [address] [place] [address] PCP - General Family Medicine 02/09/24 Through Operator Relationship Specialty Start Date End Date Charles Nicole MD [address] [place] [address] PCP - General Family Medicine 02/09/24 Through Operator Relationship Specialty Start Date End Date Manuel Ferris MD PCP - General Family Medicine 02/27/22 Manuel Ferris MD Referring Family Medicine 02/12/22 Through Operator Relationship Specialty Start Date End Date Charles Nicole MD [address] [place] [address] PCP - General Family Medicine 02/09/24 Through Operator Relationship Specialty Start Date End Date Manuel Ferris MD PCP - General Family Medicine 02/27/22 Manuel Ferris MD Referring Family Medicine 02/12/22 Through Operator Relationship Specialty Start Date End Date Manuel Ferris MD PCP - General Family Medicine 02/27/22 Manuel Ferris MD Referring Family Medicine 02/12/22 Through Operator Relationship Specialty Start Date End Date Charles Nicole MD [address] [place] [address] PCP - General Family Medicine 02/09/24 Through Operator Relationship Specialty Start Date End Date Manuel Ferris MD PCP - General Family Medicine 02/27/22 Manuel Ferris MD Referring Family Medicine 02/12/22 Manuel Ferris MD [address] [place] [address] Referring Family Medicine 07/06/24 Team Status: Inactive Member Role Status Dates WALESKA Galloway Primary Care Provider Active Start: July 10, 2024 End: July 10, 2024 Adolfo Kang MD Attending Provider Active Sta rt: July 10, 2024 End: July 10, 2024 Through Operator Relationship Specialty Start Date End Date Manuel Ferrsi MD PCP - General Family Medicine 02/27/22 Manuel Ferris MD Referring Family Medicine 02/12/22 Manuel Ferris MD [address] [place] [address] Referring Family Medicine 07/06/24 Through Operator Relationship Specialty Start Date End Date Manuel Ferris MD PCP - General Family Medicine 02/27/22 Manuel Ferris MD Referring Family Medicine 02/12/22 Manuel Ferris MD [address] [place] [address] Referring Family Medicine 07/06/24 Team Status: Inactive Member Role Status Dates WALESKA Galloway Primary Care Provider Active Start: July 19, 2024 End: July 19, 2024 Adolfo Kang MD Attending Provider Active Sta rt: July 19, 2024 End: July 19, 2024 Through Operator Relationship Specialty Start Date End Date Gay Enciso MD [address] [place] [address] Referring Physician Family Medicine 07/18/24 Through Operator Relationship Specialty Start Date End Date Manuel Ferris MD PCP - General Family Medicine 02/27/22 Manuel Ferris MD Referring Family Medicine 02/12/22 Manuel Ferris MD [address] [place] [address] Referring Family Medicine 07/06/24 Through Operator Relationship Specialty Start Date End Date Gay Enciso MD [address] [place] [address] Referring Physician Family Medicine 07/18/24 Through Operator Relationship Specialty Start Date End Date Gay Enciso SALES APPRENTICE-[employer] [address] [place] [address] PCP - General 07/13/23 Michelle Jasmine, SALES APPRENTICE-[employer] Nurse Practitioner Cardiology 06/08/23 Aurora Patel MD [...] July 31, 2024 End: July 31, 2024 Through Operator Relationship Specialty Start Date End Date Manuel Ferris MD PCP - General Family Medicine 02/27/22 Manuel Ferris MD Referring Family Medicine 02/12/22 Manuel Ferris MD [address] [place] [address] Referring Family Medicine 07/06/24 Through Operator Relationship Specialty Start Date End Date Manuel Ferris MD PCP - General Family Medicine 02/27/22 Manuel Ferris MD Referring Family Medicine 02/12/22 Manuel Ferris MD [address] [place] [id number] Referring Family Medicine 07/06/24 Through Operator Relationship Specialty Start Date End Date Manuel Ferris MD PCP - General Family Medicine 02/27/22 Manuel Ferris MD Referring Family Medicine 02/12/22 Manuel Ferris MD [address] [place] [id number] Referring Family Medicine 07/06/24 Team Status: Inactive Member Role Status Dates Gay Enciso , CARISSA-C Primary Care Provider Active Start: August 22, 2024 End: August 22, 2024 Adolfo Kang MD Attending Provider Active Sta rt: August 22, 2024 End: August 22, 2024 Through Operator Relationship Specialty Start Date End Date Gay Enciso MD [address] [place] [address] Referring Physician Family Medicine 07/18/24 Through Operator Relationship Specialty Start Date End Date Manuel Ferris MD PCP - General Family Medicine 02/27/22 Manuel Ferris MD Referring Family Medicine 02/12/22 Manuel Ferris MD [address] [place] [address] Referring Family Medicine 07/06/24 Through Operator Relationship Specialty Start Date End Date Manuel Ferris MD PCP - General Family Medicine 02/27/22 Manuel Ferris MD Referring Family Medicine 02/12/22 Manuel Ferris MD [address] [place] [address] Referring Family Medicine 07/06/24 Through Operator Relationship Specialty Start Date End Date Gay Enciso MD [address] [place] [address] Referring Physician Family Medicine 07/18/24 Through Operator Relationship Specialty Start Date End Date Gay Enciso MD [address] [place] [address] Referring Physician Family Medicine 07/18/24 Through Operator Relationship Specialty Start Date End Date Manuel Ferris MD PCP - General Family Medicine 02/27/22 Manuel Ferris MD Referring Family Medicine 02/12/22 Manuel Ferris MD [address] [place] [address] Referring Family Medicine 07/06/24 Through Operator Relationship Specialty Start Date End Date Manuel Ferris MD PCP - General Family Medicine 02/27/22 Manuel Ferris MD Referring Family Medicine 02/12/22 Manuel Ferris MD [address] [place] [address] Referring Family Medicine 07/06/24 Through Operator Relationship Specialty Start Date End Date Manuel Ferris MD PCP - General Family Medicine 02/27/22 Manuel Ferris MD Referring Family Medicine 02/12/22 Manuel Ferris MD [address] [place] [address] Referring Family Medicine 07/06/24 Through Operator Relationship Specialty Start Date End Date Manuel Ferris MD PCP - General Family Medicine 02/27/22 Manuel Ferris MD Referring Family Medicine 02/12/22 Manuel Ferris MD [address] [place] [address] Referring Family Medicine 07/06/24 Through Operator Relationship Specialty Start Date End Date Manuel Ferris MD PCP - General Family Medicine 02/27/22 Manuel Ferris MD Referring Family Medicine 02/12/22 Manuel Ferris MD [address] [place] [address] Referring Family Medicine 07/06/24 Through Operator Relationship Specialty Start Date End Date Manuel Ferris MD PCP - General Family Medicine 02/27/22 Manuel Ferris MD Referring Family Medicine 02/12/22 Manuel Ferris MD [address] [place] [address] Referring Family Medicine 07/06/24 Through Operator Relationship Specialty Start Date End Date Manuel Ferris MD PCP - General Family Medicine 02/27/22 Manuel Ferris MD Referring Family Medicine 02/12/22 Manuel Ferris MD [address] [place] [address] Referring Family Medicine 07/06/24 Through Operator Relationship Specialty Start Date End Date Manuel Ferris MD PCP - General Family Medicine 02/27/22 Manuel Ferris MD Referring Family Medicine 02/12/22 Manuel Ferris MD [address] [place] [address] Referring Family Medicine 07/06/24 Through Operator Relationship Specialty Start Date End Date Manuel Ferris MD PCP - General Family Medicine 02/27/22 Manuel Ferris MD Referring Family Medicine 02/12/22 Manuel Ferris MD [address] [place] [id number] Referring Family Medicine 07/06/24 Through Operator Relationship Specialty Start Date End Date Manuel Ferris MD PCP - General Family Medicine 02/27/22 Manuel Ferris MD Referring Family Medicine 02/12/22 Manuel Ferris MD [address] [id number] Referring Family Medicine 07/06/24 Through Operator Relationship Specialty Start Date End Date Manuel Ferris MD PCP - General Family Medicine 02/27/22 Manuel Ferris MD Referring Family Medicine 02/12/22 Manuel Ferris MD [address] [id number] Referring Family Medicine 07/06/24 Through Operator Relationship Specialty Start Date End Date Manuel Ferris MD PCP - General Family Medicine 02/27/22 Manuel Ferris MD Referring Family Medicine 02/12/22 Manuel Ferris MD [address] [id number] Referring Family [facility] 07/06/24 Through Operator Relationship Specialty Start Date End Date Manuel Ferris MD PCP - General Family Medicine 02/27/22 Manuel Ferris MD Referring Family Medicine 02/12/22 Manuel Ferris MD [address] [id number] Referring Family Medicine 07/06/24 Team Status: Inactive [...] November 13, 2024 End: November 13, 2024 Through Operator Relationship Specialty Start Date End Date Gay Enciso MD [address] [id number] Referring Physician Family Medicine 07/18/24 Through Operator Relationship Specialty Start Date End Date Manuel Ferris MD PCP - General Family Medicine 02/27/22 Manuel Ferris MD Referring Family Medicine 02/12/22 Manuel Ferris MD [address] [place] [address] Referring Family Medicine 07/06/24 Through Operator Relationship Specialty Start Date End Date Manuel Ferris MD PCP - General Family Medicine 02/27/22 Manuel Ferris MD Referring Family Medicine 02/12/22 Manuel Ferris MD [address] [id number] Referring Family Medicine 07/06/24 Through Operator Relationship Specialty Start Date End Date Manuel Ferris MD PCP - General Family Medicine 02/27/22 Manuel Ferris MD Referring Family Medicine 02/12/22 Manuel Ferris MD [address] [id number] Referring Family Medicine 07/06/24 Team Status: Inactive Member Role Status Dates 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 Active Start: January 31, 2025 End: January 31, 2025 Adolfo Kang MD Attending Provider Active Sta rt: January 31, 2025 End: January 31, 2025 Through Operator Relationship Specialty Start Date End Date Gay Enciso MD [address] [place] [id number] Referring Physician Family Medicine 07/18/24 Through Operator Relationship Specialty Start Date End Date Gay Enciso MD [address] [place] [id number] Referring Physician Family Medicine 07/18/24 Through Operator Relationship Specialty Start Date End Date Gay Enciso MD [address] [place] [id number] Referring Physician Family Medicine 07/18/24 Team Status: Inactive Member Role Status Dates Terence Blmu MD Attending Provider Active Sta rt: March 02, 2025 End: March 02, 2025 Gay Enciso , [employer] Primary Care Provider Active Start: March 02, 2025 End: March 02, 2025 Through Operator Relationship Specialty Start Date End Date Gay Enciso MD [address] [place] [id number] Referring Physician Family Medicine 07/18/24 Team Status: [...] BE BASED ON THE PRIMARY CLINICAL RECORDS. [employer] provides no warranty or guarantee of the accuracy or completeness of information in this document.
--- NOTE | 2025-03-09 22:56 | ED_ITS ---
HPI - Recheck/Abnormal Lab/Rx General Chief Complaint: Recheck/Abnormal Lab/Rx Stated Complaint: ABNORMAL LABS Time Seen by Provider: 03/09/25 22:44 History of Present Illness HPI narrative: past history of lupus, hypogammaglobulinemia . recent I and D pilonidal cyst. Is receiving IV antibiotic infusion 2 times per day. States her PCP checked her lactic acid and it was elevated and patient sent here. No fever. Related Data Home Medications ?Medication ?Instructions ?Recorded ?Confirmed ergocalciferol (vitamin D2) 1,250 1,250 mcg PO .3 time s weekly 12/18/22 03/03/25 mcg (50,000 unit) capsule folic acid 1 mg tablet 1 mg PO DAILY 12/18/2203/03 hydroxychloroquine 200 mg tablet 200 mg PO BID 3 03/03/25 prednisone 10 mg tablet 10 mg PO DAILY 12/18/2202/21 pregabalin 75 mg capsule 75 mg PO Q8H PRN pain 03/03/25 metoprolol tartrate 50 mg tablet 200 mg PO DAILY 07/0703/03/25 duloxetine 20 mg capsule,delayed 20 mg PO DAILY 03/03/25 release chlorhexidine gluconate 4 % 1 applic topical DAILY 04/1703/03/25 topical liquid (Hibiclens) clindamycin phosphate 1 % lotion 1 applic topical ALFREDO Y 03/03/25 03/03/25 clonazepam 0.5 mg tablet 0.5 mg PO Q12H PRN anxiety 1 03/03/25 dulaglutide 0.75 mg/0.5 mL 1.5 mg subcut .WEEKLY 03/0303/03/25 subcutaneous pen injector (Trulicity) fluocinonide 0.05 % topical topical 03/03/25 solution pantoprazole 40 mg tablet,delayed mg PO 03/03/25 release tacrolimus 0.1 % topical ointment topical 03/03/25 tretinoin 0.025 % topical cream applic topical 5 Previous Rx's ?Medication ?Instructions ?Recorded cephalexin 500 mg capsule 500 mg PO TID 10 days #30 ca ps 02/26/25 fidaxomicin 200 mg tablet 200 mg PO BID 10 days #20 ta bs 02/26/25 Allergies Allergy/AdvReac Type Severity Reaction Status Date / Time clindamycin Allergy Mild Unknown Verified 03/09/25 22:21 sulfamethoxazole (From Allergy Unknown Verified 03/09/25 22:21 Sulfamethoxazole-Trimethoprim) trimethoprim (From Allergy Unknown Verified 03/09/25 22:21 Sulfamethoxazole-Trimethoprim) Bactrim Allergy Intermediate Unknown Uncoded 03/09/25 22:21 Review of Systems ROS Status of ROS 10 or more systems reviewed and unremark able except as noted in history and below [facility] Social History Smoking status: Current every day smoker Little interest or pleasure in doing things: not at all Feeling down, depressed, or hopeless: not at all Exam Constitutional Vital Signs, click to edit/add: Last Vital Signs Temp 98.2 F 03/09/25 22:22 Pulse 94 H 03/09/25 22:22 Resp 20 03/09/25 22:22 BP 149/96 H 03/09/25 22:22 Pulse Ox 98 03/09/25 22:22 O2 Del Method Room Air 03/09/25 22:22 Common normals: no apparent distress, oriented x3, no limitations, healthy appearing, alert and well nourished [facility] Common normals: normocephalic and head/scalp atraumatic Eye Common normals: EOMs intact bilaterally and conjunctivae normal Respiratory Common normals: normal respiratory effort, no retractions, no use of accessory muscles and clear to auscultation bilaterally Cardio Common normals: regular rate, S1 normal heart sound and S2 normal heart sound GI Common normals: Normal to inspection, nondistended, normoactive bowel sounds present, soft to palpation and non-tender Extremity Common normals: normal to inspection and full ROM Neuro Common normals: oriented x3, CN's II-XII intact bilaterally and moves all extremities Psych Appearance: grossly normal Course Vital Signs Vital signs: Vital Signs Temperature 98.2 F 03/09/25 22:22 Pulse Rate 94 H 03/09/25 22:22 Respiratory Rate 20 03/09/25 22:22 Blood Pressure 149/96 H 03/09/25 22:22 Pulse Oximetry 98 03/09/25 22:22 Oxygen Delivery Method Room Air 03/09/25 22:22 Temperature 98.2 F 03/09/25 22:22 Pulse Rate 94 H 03/09/25 22:22 Respiratory Rate 20 03/09/25 22:22 Blood Pressure 149/96 H 03/09/25 22:22 Pulse Oximetry 98 03/09/25 22:22 Oxygen Delivery Method Room Air 03/09/25 22:22 MDM - Recheck/Abnormal Lab/Rx MDM Narrative Medical decision making narrative: patient currently receiving IV infusion here at the hospital twice daily. recent pilondal I and D and packing. latic acid measured by PCP and elevated. Patient advised to come to the ER. She was hydrated in the department and her lactic decreased from 3.0 to 2.2 with <2 as normal. She is feeling better. She is to continue her outpatient infusion antibiotic schedule and follow up with her doctor to recheck her lactic Lab Data Labs: Lab Results 03/09/25 03/10/25 Range/Units 23:05 01:20 WBC 12.2 H (4.0-11.0) 10^3/uL RBC 4.27 (4.20-5.40) 10^6/uL Hgb 13.6 (12.0-16.0) g/dL Hct 41.4 (36.0-48.0) % MCV 97.0 (81.0-99.0) fL MCH 31.9 (26.7-34.0) pg MCHC 32.9 (29.9-35.2) g/dL RDW 14.1 (11.0-15.0) % Plt Count 299 (150-450) 10^3/uL MPV 10.2 (9.5-13.5) fL Neut % (Auto) 75.0 (43.0-75.0) % Lymph % (Auto) 15.2 L (20.5-60.0) % [place] % (Auto) 6.6 (1.7-12.0) % Eos % (Auto) 0.8 L (0.9-7.0) % Baso % (Auto) 0.4 (0.2-2.0) % Neut # (Auto) 9.2 H (1.4-6.5) 10^3/uL Lymph # (Auto) 1.9 (1.2-3.8) 10^3/uL [place] # (Auto) 0.8 (0.3-0.8) 10^3/uL Eos # (Auto) 0.1 (0.0-0.7) 10^3/uL Baso # (Auto) 0.1 (0.0-0.1) 10^3/uL Abs Immat Gran (auto) 0.24 H (0.00-0.03) 10^3/uL Imm/Tot Granulo (auto) 2.0 H (0.0-0.5) % Sodium 140 (136-145) mmol/L Potassium 3.9 (3.5-5.1) mmol/L Chloride 106 (98-107) mmol/L Carbon Dioxide 23.4 (21.0-32.0) mmol/L Anion Gap 14.5 BUN 9.0 (7.0-18.0) mg/dL Creatinine 0.63 (0.55-1.02) mg/dL Est GFR ( Amer) >60 (>=60 mL/min/1.73m^2) Est GFR (Non-Af Amer) >60 (>=60 mL/min/1.73m^2) BUN/Creatinine Ratio 14.3 Glucose 212 H (74-106) mg/dL Lactate 3.0 H* 2.2 H* (0.4-2.0) mmol/L Calcium 8.9 (8.5-10.1) mg/dL Discharge Plan Discharge Chief Complaint: Recheck/Abnormal Lab/Rx Clinical Impression: Elevated lactic acid level Patient Disposition: Home, Self-Care Prescriptions / Home Meds: No Action ergocalciferol (vitamin D2) 1,250 mcg (50,000 unit) capsule 1,250 mcg PO .3 times weekly folic acid 1 mg tablet 1 mg PO DAILY hydroxychloroquine 200 mg tablet 200 mg PO BID prednisone 10 mg tablet 10 mg PO DAILY pregabalin 75 mg capsule 75 mg PO Q8H PRN (Reason: pain) metoprolol tartrate 50 mg tablet 200 mg PO DAILY duloxetine 20 mg capsule,delayed release(DR/EC) 20 mg PO DAILY fidaxomicin 200 mg tablet 200 mg PO BID 10 Days Qty: 20 0RF cephalexin 500 mg capsule 500 mg PO TID 10 Days Qty: 30 0RF chlorhexidine gluconate [Hibiclens] 4 % liquid 1 applic TOPICAL DAILY clindamycin phosphate 1 % lotion 1 applic TOPICAL DAILY clonazepam 0.5 mg tablet 0.5 mg PO Q12H PRN (Reason: anxiety) tretinoin 0.025 % cream TOPICAL pantoprazole 40 mg tablet,delayed release (DR/EC) PO tacrolimus 0.1 % ointment TOPICAL fluocinonide 0.05 % solution TOPICAL Trulicity 0.75 mg/0.5 mL pen injector 1.5 mg SUBCUT .WEEKLY Print Language: Trinidadian Instructions: Dehydration (ED) Additional Instructions: follow up with your doctor early next week for recheck Referrals: SAMSON ENCISO [Primary Care Provider, Family Practice] - 1 week
[2025-03-09 23:13] LABS: Hematocrit 41.4 % (36.0-48.0); Hemoglobin 13.6 g/dL (12.0-16.0); Immature Granulocytes Abs Auto 0.24 10^3/uL (0.00-0.03); Immature Granulocytes Pct Auto 2.0 % (0.0-0.5); Lymphocytes Absolute Auto 1.9 10^3/uL (1.2-3.8); Mean Corpuscular HGB Conc 32.9 g/dL (29.9-35.2); Mean Corpuscular Hemoglobin 31.9 pg (26.7-34.0); Mean Corpuscular Volume 97.0 fL (81.0-99.0); Platelet Count 299 10^3/uL (150-450); Red Blood Count 4.27 10^6/uL (4.20-5.40); White Blood Count 12.2 10^3/uL (4.0-11.0)
[2025-03-09 23:23] LABS: Anion Gap 14.5; Blood Urea Nitrogen 9.0 mg/dL (7.0-18.0); Calcium 8.9 mg/dL (8.5-10.1); Carbon Dioxide 23.4 mmol/L (21.0-32.0); Chloride 106 mmol/L (98-107); Estimated GFR (African America >60 (>=60 mL/min/1.73m^2); Estimated GFR (Non-African Ame >60 (>=60 mL/min/1.73m^2); Glucose 212 mg/dL (74-106); Potassium 3.9 mmol/L (3.5-5.1); Sodium 140 mmol/L (136-145)
--- NOTE | 2025-03-09 23:28 | PC.NURSE ---
Sent by PCP for elevated lactic.
[2025-03-09 23:33] LABS: Lactate/Lactic Acid 3.0 mmol/L (0.4-2.0)
[2025-03-09] MEDS: 0.9 % SODIUM CHLORIDE 1,000 ML 999 ML IV (23:57)
[2025-03-10] MEDS: 0.9 % SODIUM CHLORIDE 1,000 ML 999 ML IV (00:14)
[2025-03-10 02:03] LABS: Lactate/Lactic Acid 2.2 mmol/L (0.4-2.0)
== END 2025-03-10 02:27 | disposition home or self-care (01) ==
PROVIDERS: Emergency Provider Internal Medicine; PCP Nurse Practitioner Family
DX: R74.02 Elevation of levels of lactic acid dehydrogenase [LDH] (principal); F17.200 Nicotine dependence, unspecified, uncomplicated; L05.01 Pilonidal cyst with abscess; E11.9 Type 2 diabetes mellitus without complications; M54.89 Other dorsalgia
CPT/HCPCS: 36415; 72072; 80048; 81001; 83605; 85025; 87086; 96365; 96366; 99284; J0713

== ENCOUNTER 2025-03-09 23:59 | Outpatient (OUT) | payer OTHER, SELFPAY ==
--- OUTSIDE RECORDS SUMMARY | 2025-02-28 09:30 | XMS_ITS | Encounter Summary ---
Author Organization [facility] Healthcare Address [address] [place] [address] Care Team Providers Care Core Checker Name Role Phone Gay De La Torre MD Unavailable [phone] Reason for Visit * ReasonCommentsConsultPilonidal cyst- Pt had a pilonidal cyst and sinus removal about 15 yrs ago- AVV did procedure. Everything went well and was doing fine until about 2-3 weeks ago. * Consultation (Routine) - ClosedSpecialtyDiagnoses / ProceduresReferred By ContactReferred To ContactGeneral Surgery Diagnoses Pilonidal cyst Procedures [place] OFFICE/OUTPATIENT [facility] 60 MINUTES Cynthia English MD [address] [facility] [address] [place] [address] Phone: tel: fax: Terence Blum MD [address] [place] [address] [address] [place] [address] Phone: tel: fax: Referral IDStatusReasonStart DateExpiration DateVisits RequestedVisits [id number] Specialty Services Required / Encounter Details DateTypeDepartmentCare Team (Latest Contact Info)Msgeryuamol03/08/2025 9:30 AM EDTConsult [facility] [address] [facility] [address] [place] [phone] Terence Blum MD [address] [address] Pilonidal abscess (Primary Dx); Pilonidal cyst Social History Tobacco UseTypesPacks/DayYears UsedDateSmoking Tobacco: Every FxmMpfpbvfusy905.8 Started: 05/24/1995Smokeless Tobacco: Never Comments:Current smoker, carlos mars, 11-20 cigarettes/day Alcohol UseStandard Drinks/WeekCommentsNever0 (1 standard drink = 0.6 oz pure alcohol)Caffeine intake : > 4 cups per dayCommentsNoSex and Gender InformationValueDate RecordedSex Assigned at BirthNot on fileLegal SexFemale 08/05/2022 7:18 PM EDTGender IdentityNot on fileSexual OrientationNot on file documented as of this encounter Last Filed Vital Signs Vital SignReadingTime TakenCommentsBlood Pmepnjme864/7802/28/2025 9:25 AM EDT Pulse--Temperature--Respiratory Rate--Oxygen Saturation--Inhaled Oxygen Concentration--Hyudpi972 kg (291 lb)02/28/2025 9:25 AM JKMTxmcsp489.2 cm (5' 7 ) 02/28/2025 9:25 AM EDTBody Mass Index45.5802/28/2025 9:25 AM EDTdocumented in this encounter Progress Notes * Terence Pacheco MD - 02/28/2025 9:30 AM EDT Images from the original note were not included. Ariadna B Siva 1980 Ariadna B Jose Carlosfrancisco javier is a 44 y.o. female presents with [...] and also on prednisone. She follows with [facility] rheumatology and also with [facility] sawyer tology/oncology. She states she does have [...] Chronic laryngopharyngitis COVID-19 vaccine administered x 2 ([email or web address]) Difficulty walking Fatigue Fibromyalgia, primary GERD (gastroesophageal [...] documented in this encounter Plan of Treatment DateTypeDepartmentCare Team (Latest Contact Info)Rorpnodhczm40/27/2025 10:20 AM EDTOffice Visit [facility] [address] [facility] [address] [place] [phone] Mary Grace Mejias MD [address] [facility] [address] [place] [address] 03/23/2025 11:30 AM EDTOffice Visit [facility] [address] [facility] [address] [place] [address] Terence Blum MD [address] [facility] [address] [place] [address] 07/25/2025 11:00 AM ESTOffice Visit [facility] [address] [place] [phone] Cynthia English MD [address] [place] [address] documented as of this encounter Visit Diagnoses Diagnosis Pilonidal abscess- Primary Pilonidal cyst with abscess Pilonidal cyst documented in this encounter Care Teams Team MemberRelationshipSpecialtyStart DateEnd Date Gay De La Torre MD [facility]5 [place] [address] Referring PhysicianFamily Medicine07/18/24documented as of this encounter
--- NOTE | 2025-03-09 | XR_ITS ---
[place] [id number] Patient Name: JONES HALEY MRN: [id number] date: 1980 Sex: F Assigned Patient Location: [facility] Current Patient Location: [facility] Accession/Order Number: [id number] Exam Date: 03/09/2025 17:42 Report Date: 03/09/2025 21:50 At the request of: KIMBERLY FLORES Procedure: XR thoracic spine 3V THORACIC SPINE - - 3 views CLINICAL HISTORY: Mid Back Pain COMPARISON: 09/28/2023 FINDINGS: Vertebral body heights maintained. Minimal intermargin plate spurring involving the lower thoracic levels. Minimal facet arthropathy. No definite acute fracture malalignment. XR/XR thoracic spine 3V IMPRESSION: Minimal degenerative changes. Negative acute fracture malalignment. Impression dictated by: Rafal Cox M.D. 03/09/2025 9:50 PM Dictation Location: [place] [address] Electronically authenticated by: [id number] Y Date: 03/09/2025 21:50
--- OUTSIDE RECORDS SUMMARY | 2025-03-13 05:29 | XMS_ITS | Continuity of Care Document ---
Author Organization [facility] Address [address] [place] [address] Phone Care Team Providers Care Termite Treater Helper Name Role Phone Gay De La Torre SPECIAL DELIVERY WORKER-C Primary Care Provider Margie Arnett NP Attending Provider Adolfo Kang MD Attending Provider [phone] Adolfo Kang MD Other Provider [phone] Mathew Ji MD Attending Provider Bandar Portillo APRN Attending Provider [phone] Terence Blum MD Attending Provider Jose Perez DO Attending Provider Gay De La Torre SPECIAL DELIVERY WORKER-C Attending Provider NON STAFF Primary Care Provider Unavailabl e Care Teams Patient Care Team Team Status: Active Member Role/Relationship Status Dates NON STAFF Primary Care Provider Active Visit Care Team Team Status: Inactive Member Role/Relationship Status Dates Gay De La Torre NP-C Primary Care Provider Active Start: January 17, 2025 End: January 17, 2025Pefrank Arnett NPAttending ProviderActiveStart: January 17, 2025 End: January 17, 2025 Visit Care Team Team Status: Active Member Role/Relationship Status Dates Gay De La Torre SPECIAL DELIVERY WORKER-C Primary Care Provider Active Start: January 31, 2025 Adolfo Kang MDAttending ProviderActiveStart: January 31, 2025 Adolfo Kang MDOther ProviderActiveStart: January 31, 2025 Visit Care Team Team Status: Inactive Member Role/Relationship Status Dates Gay De La Torre SPECIAL DELIVERY WORKER-C Primary Care Provider Active Start: February 14, 2025 End: February 14, 2025Pefrank Arnett NPAttending ProviderActiveStart: February 14, 2025 End: February 14, 2025 Visit Care Team Team Status: Inactive Member Role/Relationship Status Dates Mathew Ji MD Attending Provider Active St art: February 26, 2025 End: February 26, 2025 Visit Care Team Team Status: Inactive Member Role/Relationship Status Dates Bandar Portillo APRN Attending Provider Active Start: February 28, 2025 End: February 28, 2025Pafrancesco De La Torre , SPECIAL DELIVERY WORKER-CPrimary Care ProviderActiveStart: February 28, 2025 End: February 28, 2025 Visit Care Team Team Status: Inactive Member Role/Relationship Status Dates Terence Blum MD Attending Provider Active Sta rt: March 02, 2025 End: March 02, 2025Pamelbryce De La Torre , SPECIAL DELIVERY WORKER-CPrimary Care ProviderActiveStart: March 02, 2025 End: March 02, 2025 Visit Care Team Team Status: Inactive Member Role/Relationship Status Dates Jose Perez DO Attending Provider Active S tart: March 03, 2025 End: March 03, 2025 Visit Care Team Team Status: Inactive Member Role/Relationship Status Dates Gay De La Torre NP-C Attending Provider Active Start: March 09, 2025 End: March 09, 2025 Patient Care Team Team Status: Inactive Member Role/Relationship Status Dates Adolfo Kang MD Attending Provider Active Sta rt: March 13, 2025 End: March 13, 2025NON STAFFPrimary Care ProviderActiveStart: March 13, 2025 End: March 13, 2025 Chief Complaint and Reason for Visit Chief Complaint Admit Date reshedule procedure January 17, 2025 10 :29am Back Pain January 31, 2025 10:00am 2 week follow up after RFA January 9:23am Unknown February 26, 2025 7: 30pm 8 wk f/u-constipation/dyspepsia/abd. robb n February 28, 2025 1:29pm Pilonidal Cyst March 02, 2025 2 :46pm Unknown March 03, 2025 4 :14pm Unknown March 09, 2025 4 :38pm 6 week follow up after RFA/review imagin g March 13, 2025 8:50am Reason for Visit Admit Date Lumbosacral spondylosis January 17 10:29am Other chronic [...] (gastroesophageal reflux disease) O ctober 2024 1:29pm Lumbosacral spondylosis March 13 8:50am Other chronic pain March 13, 2025 8 :50am Sacroiliitis March 13, 2025 8 :50am Reason for Referral Type Reason(s) Provider Provider Contact Information P e[place] Address Start Date Call Dr. Donaldson office to schedule a follow up appointment if you do not already have one scheduledAdolfo Kang MDWork Phone: [phone] [facility] [address] [facility] [address]TjkwhoTerence Pacheco MDWork Phone: [phone] [facility] [address] [facility] [address] Allergies, Adverse Reactions, Alerts Allergen Type Severity Reaction Last Updated Verified Status clindamycin Allergy Unknown Unknown Reaction March 02, 2025 3:02pm Yes Active sulfamethoxazole Allergy Unknown lymph swelling Octo kaylin 10th, 2025 3:02pm Yes Active trimethoprim Allergy Unknown lymph swelling March 02, 2025 3:02pm Yes Active Social History Smoking Status Status Start Date End Date Date of Observa tion Smokes tobacco daily (finding) March 02, 2025 3:06pm Observation Status Observation Response Date of Response Legal Sex Female (finding) Sex Assigned At BirthFemaleMay 1980 Family History Relationship Condition Age at Onset Recorded Date/T michelle father Malignant neoplasm of stomach Unknown DeceasedUnknownmotherCrohn's diseaseUnknown Problems Active Problems Problem Diagnosis/Recorded Date Onset Date Stat us Mid back pain February 14, 2025 9:59am Unknown Active Duct ectasia of breast December 16, 2023 3:05pm Unknown Active C. difficile diarrhea September 22, 2023 2:39pm Unknown Active Recurrent Clostridioides dif ficile diarrhea October 20, 2023 1:33pm Unknown Active Nipple discharge in female December 16, 2023 3:04pm Unkn own Active Sacroiliitis January 28, 2024 11:54am Unknown Active Lupus October 20, 2023 8:38am Unknown Active Fatty liver February 28, 2025 4:31pm Unknown Act kaycee Abdominal mass December 12, 2024 11:12am Unknown Ac tive Diarrhea September 22, 2023 2:45pm Unknown Active Dyspepsia March 16, 2024 9:49am Unknown Ac tive Dyspepsia December 12, 2024 11:12am Unknown Acti ve Hyperlipidemia October 20, 2023 8:37am Unknown Acti ve Insulin resistance October 20, 2023 8:37am Unknown Active Abdominal burning sensation in left upper quadrant December 12, 2024 10:54am Unknown Active Lumbosacral spondylosis January 28, 2024 11:54am Un known Active Other chronic pain January 28, 2024 11:55am Unknown Active Bloating December 12, 2024 11:00am Unknown Acti ve Abdominal pressure September 22, 2023 2:45pm Unknown A ctive GERD (gastroesophageal reflux disease) September 22, 2023 2 :44pm Unknown Active Abdominal pain March 16, 2024 9:49am Unknown Active Abdominal pain December 12, 2024 11:00am Unknown Ac tive Hypertension October 20, 2023 8:38am Unknown Active Constipation December 12, 2024 11:11am Unknown Acti ve Medications Medication Status Dose Units Route Directions Qty Days Refills S tart Date Stop Date End Date Reason(s) Instructions Adherence Pantoprazole 20 mg tablet,delayed release (DR/EC) Discontinued 2 0 MG PO Daily July 19, 2024 1:00amJun2024 11:24amPantoprazole 20 mg tablet,delayed release (DR/EC)Ubqoxh91IYPFYhmhd dailyJune 2024 11:24am Complies with drug therapyAcetaminophen (Acetaminophen Extra Strength) 500 mg dnvinuThlfos7809XYACZvklo 6 hours as needed for painSeptember 2024 12:00am Complies with drug therapyIbuprofen 400 mg wmvcaaNkerbh614CHGU7-9 TIMES PER DAY as needed for painSeptember 2024 12:00amComplies with drug therapy Alprazolam 0.25 mg tabletDiscontinued0.25MGPODaily as needed for anxietyMay 2023 12:00amMah 2024 4:04pmBelimumab (Benlysta) 200 mg/mL auto-urqemsivXmvgyuogksha765CDFECLQDnyzlh weekMay 2023 12:00amJune 2024 11:23amClobetasol 0.05 % ykwtqpqThbdwz9JMKWNZAHQJFHTZb DirectedMay 2023 12:00amComplies with drug therapyFluocinonide 0.05 % suvqebjmKatrdr9XWBUHE TOPICALDaily as needed for rashMay 2023 12:00amComplies with drug therapy Hydroxychloroquine 200 mg lrpqmwAqpuzd768VUPEYqizpDln 2023 12:00amComplies with drug therapyAzathioprine 50 mg oypnswJvnmpmldqbhb81NAYXZalbz times dailyMay 2023 12:00amJune 2024 11:22amPravastatin 20 mg wspphmAgtswjgclabi15 MGPODailyMay 2023 12:00amMay 2023 1:08pmPrednisone 10 mg tablet Cdtudk98SWOVQlcwyKht 2023 12:00amComplies with drug therapyPregabalin 75 mg yaxagwaOokqeb466OOKTJgryq as needed for nerve painMay 2023 12:00am Complies with drug therapyErgocalciferol (Vitamin D2) 1,250 mcg (50,000 unit) zilendhAhipiytycpsj48306BNHYULqslwe weekMay 2023 12:00amJune 2024 11:24amMetoprolol Tartrate 50 mg ucttfuStbble792SLUECheocBsw 2023 12:00am Complies with drug therapyFidaxomicin (Dificid) 200 mg zvmemvFmpbbijsfcnm298NKHH .every other dayMay 2023 12:00amJuly 2023 2:11pmFidaxomicin (Dificid) 200 mg vpkuueLraxanggxldd037BLKASpoms 12 qttcc15818NqgOctober 20, 2023 12:00amJuly 2023 2:11pmErgocalciferol (Vitamin D2) 1,250 mcg (50,000 unit) vqoxtecLxotmy42522BVFZWZ8 Times a weekJune 2024 11:23amComplies with drug therapyGentamicin 0.1 % euserjdhUjfwkxavaxqv6PLNQQHKKKDCHQXyuyf times wtxcm55331 November 22, 2023 12:00amJuly 2023 2:12pmbelimumab (Benlysta)DiscontinuedIV every monthJune 2024 12:00amOctober 2024 9:07amCephalexin 500 mg nvuiptaYqajxwswrmup608DMYOVlyoz times dailyOct2024 12:00amOctober 2024 9:07amDicyclomine 10 mg exqgrzfNhcorvajnghh82AYZIImfsj daily as needed for abdominal bhwe01250Rbs 2023 12:00amMay 2023 1:07pmTake 1 capsule orally twice a day prnPantoprazole 40 mg tablet,delayed release (DR/EC) Dszsggcizvvz42TQIFJoxia902125Wcc 1st, 2024 12:00amMay 2023 1:07pmTake 1 tablet orally once a day.Omeprazole 40 mg capsule,delayed release(DR/EC) Bfqncngzccgr20WIWIAyyru36975Vntzkwz 2023 12:00amFebruary 2024 10:52amClonazepam (Klonopin) 0.5 mg tabletActive0.5MGPODailyMarch 2024 12:00amComplies with drug therapyNystatin 100,000 unit/mL suspensionDiscontinued 1MLPODailyMarch 2024 12:00amJuly 2024 10:49amswish and swallow Thiamine Hcl (Vitamin B1) 100 mg cntvlhIyweym730XFDXEdrjlKlej 2024 12:00am Complies with drug therapyFolic Acid 1 mg wlowssIzkbft9MINKIaimzTzxm 2024 12:00amComplies with drug therapyDuloxetine 20 mg capsule,delayed release(DR/EC) Joizku18QCXIRnwlgQayo 2024 12:00amComplies with drug therapygammagard DiscontinuedIVJuly 2024 12:00amJuly 2024 10:58amgammagardActiveIV EVERY 4 WEEKSJuly 2024 10:58amComplies with drug therapy Immunizations Immunization Event Date Not Given Reason Dose Number Resp Therapist Lot Number Reason(s) Given Vaccine Information Statement (VIS) Detail Administration Location COVID-19 mRNA, Comirnaty ([employer]) September 28, 2020 COVID-19 mRNA, Comirnaty ([employer])October 19OVID-19 mRNA, Comirnaty ([employer]) May 26OVID-19 mRNA Bivalent Booster ([employer])February 08, 2022 COVID-19 ([employer]) 1343-5907 12Y and olderOctober 2022 Procedures Procedure Date Performed Status Urine Culture March 03, 2025 completed Urine Culture March 09, 2025 completed Urine Culture February 26, 2025 completed Aerobic Culture March 02, 2025 completed Anaerobic Culture March 02, 2025 active Gram Stain March 02, 2025 completed OR Pilonidal Cystectomy (Not Applicable) March 02, 2025 4:00pm completed Relevant Diagnostic Tests and/or Laboratory Data Microbiology Results Procedure Source Result Collection Date/Time Result Date/Time Result Comment Performing Site Urine Culture Urine bacilli - 2 Days February 7:30pm February 28, 2025 11:08am [facility] [id number] [address] [place] [address]Eaiek CultureUrine, Clean-Voided MidstreamCandida albicans March 03, 2025 4:14pmOctober 2024 10:41am[facility] [id number] [address] [facility] [address]Pwahv CultureUrine, Clean-Voided Midstream2 DaysOctober 2024 4:38pmOctober 2024 10:00[facility] [id number] [address] [facility] [address]Gejttnc CultureCoccyx, AbscessSerratia marcescensOctober 2024 5:17pmOctober 2024 9:14am[facility] [id number] [address] [facility] [address]Obth StainCoccyx, AbscessOctober 2024 5:17pmOctober 2024 2:17pm[facility] [id number] [address] [facility] [address] Vital Signs Vital Reading Result Reference Range Collection Date/Time Height 67 [in_i] January 17, 2025 10:38amHeart Rate92 /jqp71-029Oezhvh 2024 10:38amOxygen saturation by Pulse zzdkjayp55 %95-100August 2024 10:38amBP Sbbyohsy506 mm[Hg]100-140August 2024 10:38amBP Dluyzotdv45 mm[Hg]60-100August 2024 10:42ciReaqey92 [in_i]January 31, 2025 10:98bgYhjbjd498.00 kgSeptember 2024 10:11amHeart Rate86 /vjq46-324Woelvydae 2024 11:40amRespiratory rate18 /ukm04-22Owfpynvyf 2024 11:40amOxygen saturation by Pulse oximetry 94 %95-100September 2024 11:40amBP Hxqobxxi861 mm[Hg]100-140September 2024 11:40amBP Eddexabjq98 mm[Hg]60-100September 2024 11:40amHeight 67 [in_i]February 14, 2025 9:42amHeart Rate65 /cps08-769Uxjgvccbe 2024 9:42amOxygen saturation by Pulse iinriurr61 %95-100September 2024 9:42amBP Wfikeomb674 mm[Hg]100-140Sept2024 9:42amBP Bxinjsquf95 mm[Hg]60-100 February 14, 2025 9:74hsDpsvil05 [in_i]February 28, 2025 1:77kqXzobhz920.00 kgOctober 2024 1:34pmHeart Rate99 /gdw23-627Dsviyqg 8th, 2025 1:34pm Respiratory rate18 /onr03-32Vmxeeeo 8th, 2025 1:34pmOxygen saturation by Pulse bkxcootj34 %95-100Oct2024 1:34pmBP Ixiagxwa192 mm[Hg]100-140February 28, 2025 1:34pmBP Xpkbdwsnm01 mm[Hg]60-100February 28, 2025 1:34pmBMI (Body Mass Index)43.8 kg/d8ZhvcyrsFebruary 28, 2025 1:14cqSliakd16 [in_i]March 02, 2025 3:30juRhpdbv597.27 kgMarch 02, 2025 3:06pmBody Fcxnyezoxvk83.4 [degF] 97.6-99.0March 02, 2025 3:06pmHeart Rate84 /esv52-422MweuhxpMarch 02, 2025 5:29pmRespiratory rate16 /wjh93-66NxlbnodMarch 02, 2025 5:29pmOxygen saturation by Pulse npojuxrh94 %95-100Oct2024 5:29pmBP Bcylonrt697 mm[Hg]100-140 March 02, 2025 5:29pmBP Dwftqdboo96 mm[Hg]60-100March 02, 2025 5:29pm Heart Rate82 /lih01-257Qacbazy 21st, 2025 9:08amOxygen saturation by Pulse juwynnsg54 %95-100October 2024 9:08amBP Jmziyvqi857 mm[Hg]100-140Oct2024 9:08amBP Uowyrwyxx56 mm[Hg]60-100Oct2024 9:08am Advance Directives Advance Directive Response Recorded Date/ Time Advance Directives No September 17, 2 019 2:40pm Insurance Providers Guarantor Ariadna Paniagua Address [address] [place] [id number] Info.Home Phone: Payer Group Member ID Coverage Type Subscriber Relationship to Subscriber Effective Date Expiration Date [employer] [id number] B Prinnier Id: [id number] [address] [facility] [id number] Home Phone: Email: [email or web address] Encounters Encounter Location(s) Arrival/Admit Date Discharge/Departure Date Discharge/Departure Disposition Provider(s) Departed Physician/ Provider Office Visit -[facility] January 17, 2025 10:29am January 17, 2025 11:04am Discharged to home care or self care (routine discharge) Margie Arnett [facility] 10:00am Adolfo Kang MDDeparted Physician/Provider Office Visit-[facility] Pain MgmtSeptember 2024 9:23amSeptember 2024 10:07amDischarged to home care or self care (routine discharge)Margie Arnett NPDeparted Referred-[facility] 20[facility] 7:30pmOctober 2024 7:31pmDischarged to home care or self care (routine discharge)Mathew Ji , MDDeparted Physician/Provider Office Visit-[facility] 20[facility] 1:29pm February 28, 2025 2:17pmDischarged to home care or self care (routine discharge) Lynne Childers APRNDeparted Surgical Day Care-[facility] March 02, 2025 2:46pmOctober 2024 5:35pmDischarged to home care or self care (routine discharge)BRITTANI Salcedoeparted Referred-[facility]October 20[facility] 4:14pmOctober 2024 4:15pmDischarged to home care or self care (routine discharge)Saúl Mary DODeparted Referred- [facility]October 2024 4:38pmOctober 2024 4:39pm Discharged to home care or self care (routine discharge)Gay De La Torre CNP Departed Physician/Provider Office Visit-[facility] Pain MgmtOctober 2024 8:50amOctober 2024 9:28amDischarged to home care or self care (routine discharge)Adolfo Kang MD Recent Diagnosis Onset Date Admit Date Lumbosacral spondylosis Unknown December 232024 10:29am Other [...] reflux disease) Unknown February 28, 2025 1:29pm Lumbosacral spondylosis Unknown March 13, 2025 8:50am Other chronic pain Unknown March 13, 2025 8:50am Sacroiliitis Unknown March 13 8:50am Assessments Diagnosis Onset Date Resolution Status Admit Date Lumbosacral spondylosis acuteAugust 2024 10:29amOther chronic painacuteAugust 2024 10:29am SacroiliitisacuteAugust 2024 10:29amLumbosacral spondylosisacuteSeptember 2024 9:23amMid back painacuteSeptember 2024 9:23amOther chronic pain acuteSeptember 2024 9:23amSacroiliitisacuteSeptember 2024 9:23am Abdominal pressureacuteOctober 2024 1:29pmDyspepsiaacuteOctober 2024 1:29pmFatty liveracuteOctober 2024 1:29pmGERD (gastroesophageal reflux disease)acuteOctober 2024 1:29pmLumbosacral spondylosisacuteOctober 2024 8:50amOther chronic painacuteOct2024 8:50amSacroiliitisacute October 2024 8:50am Plan of Treatment Author Bandar Portillo [facility] HospitalAuthoredOctthe medical center 2024 4:36pmA 44-year-old female patient with diagnosis of GERD, dyspepsia, abdominal pressure and MASH Continue Protonix 40 mg twice daily as patient dyspeptic complaints including epigastric pain and heartburn have been resolved. Patient negative for dysphagia as well Patient ordered CT scan for evaluation abdominal pressure/mass bulge in abdomen. Patient did undergo ultrasound with unremarkable findings but continues with abdominal pressure. Patient prefers [facility] location and has approval from insurance if [...] with FibroScan would be warranted Author Chet [facility] CenterAuthoredAuguschelsea 2024 11:02am44 year old female here for follow up [...] guidance. Follow up after procedure. Author Chet [facility] CenterAuthoredSeptember 2024 10:07am44 year old female here for follow up [...] and movements while managing her pain. Author Adolfo Kang [facility] HospitalAuthoredOctober 2024 9:28amPatient reports more than 80% pain relief to the area treated as well as improved walking, standing and daily functions following procedure. 44 year old female here for follow up status post lumbar facet medial branch radiofrequency ablation bilaterally at L3, L4 as well as L5 dorsal ramus for denervation of L4-5, L5-S1 facet joints under fluoroscopic guidance. Patient reports more than 80% pain relief to the area treated as well as improved walking, standing and daily functions following procedure. She voices complaints of low back pain. She also voices complaints of numbness to the right hip and thigh. She notes she recently had surgery for a pilonidal cyst which came back with an infection. She states she recently finished IV ATB for the infection, but was called yesterday by her PCP that she now has a different infection. She notes she is due to see infectious disease tomorrow. Anatomy of spine as well as other treatment options were discussed in detail with the patient in regards to patients condition. If pain persists or worsens, we can consider proceeding with a bilateral sacroiliac joint injection under fluoroscopic guidance. Risks and benefits of procedure explained to patient; patient verbalizes understanding. I would like to be sure that the patient is clear from infection prior to scheduling another injection. Follow up after infection is cleared. Future Tests Future scheduled test information is unavailable Pending Tests Test Name Ordered Date Scheduled Date XR thoracic spine 3V* February 14, 2025 10:03 am Future Visits Future appointment information is unavailable Future Procedures Procedure Name Ordered Date Scheduled Date Discharge Order January 31, 2025 11:43am Sep tember 2024 11:43am Wound Culture (Deep) March 02, 2025 5:17pm O ctober 2024 5:17pm Discharge Order March 02, 2025 5:32pm Octobe r 2024 5:32pm Future Medications Future medication information is unavailable Patient Instructions Instruction Admit Date Know your Meds Jorge Luis Non [facility]Sept[facility] 2024 10:00amSkin abscess drainage - Discharge instructions How to change a dressing Know your MedsOctober 2024 2:46pm Goals Acute Goals Author Authored Date Experience reduced anxiety * Identifies current stressors * Develops effective coping behaviors * [facility] 6:46pmRemain free of complications [facility] 2024 6:46pmUnderstand preop/postop care/sensations * Verbalizes understanding of surgical procedure * Verbalizes understanding of sensations following surgery * Verbalizes understanding of post-op treatment planOly [facility] 2024 6:46pmReport pain at tolerable level * Uses pain scale appropriately * Identify options for pain control - Analgesics - Narcotics - Non-medication measuresOly [facility] 2024 6:46pmAbsence of imbalanced fluid volume s/s Oly [facility] 2024 6:46pmAbsence of physical injury Loy [facility] 2024 6:46pmAbsence of surgical site infection O[facility] 2024 6:46pm
--- OUTSIDE RECORDS SUMMARY | 2025-03-14 01:44 | XMS_ITS | Encounter Summary ---
Author Organization [facility] Address [address] [place] [address] Care Team Providers Care Medical Records Custodian Name Role Phone Gay De La Torre MD Unavailable [phone] Encounter Details DateTypeDepartmentCare Team (Latest Contact Info)Htpypgsncqc28/14/2025Travel Social History Tobacco UseTypesPacks/DayYears UsedDateSmoking Tobacco: Every UblNnqgfsqcjk888.8 Started: 05/24/1995Smokeless Tobacco: Never Comments:Current smoker, carlos ryday, 11-20 cigarettes/day Alcohol UseStandard Drinks/WeekCommentsNever0 (1 standard drink = 0.6 oz pure alcohol)Caffeine intake : > 4 cups per dayCommentsNoSex and Gender InformationValueDate RecordedSex Assigned at BirthNot on fileLegal SexFemale 08/05/2022 7:18 PM EDTGender IdentityNot on fileSexual OrientationNot on file documented as of this encounter Plan of Treatment DateTypeDeselect specialty hospitalCare Team (Latest Contact Info)Skvwkdytuhp29/27/2025 10:20 AM EDTOffice Visit [facility] [address] [facility] [address] [place] [address] Mary Grace Mejias MD [address] [facility] [address] [place] [address] 03/23/2025 11:30 AM EDTOffice Visit [facility] [address] [facility] [address] [place] [address] Terence Blum MD [address] [facility] [address] [place] [address] 07/25/2025 11:00 AM ESTOffice Visit [facility] [address] [place] [phone] Cynthia English MD [address] [place] [address] documented as of this encounter Visit Diagnoses Not on filedocumented in this encounter Care Teams Team MemberRelationshipSpecialtyStart DateEnd Gay De La Torre MD [address] [place], [place] [id number] Referring PhysicianFamily Medicine07/18/24documented as of this encounter
--- OUTSIDE RECORDS SUMMARY | 2025-03-14 01:44 | XMS_ITS | Clinical Summary ---
Author Organization [facility] Address [address] [place] [address] Care Team Providers Care Private Mortgage Banker Safe Name Role Phone Gay De La Torre CNP Primary Care Provider [phone] Social History Tobacco UseTypesPacks/DayYears UsedDateSmoking Tobacco: Never Assessed CommentsUnknownSex and Gender InformationValueDate RecordedSex Assigned at Not on fileLegal QpvLejuop87/04/2024 9:51 AM ESTGender IdentityNot on fileSexual OrientationNot on file Plan of Treatment DateTypeDepartmentCare Team (Latest Contact Info)Pzmzbwecjia43/22/2025 12:00 PM EDTOffice Visit [facility] Infectious Disease [address] [phone] Colleen Hamilton MD [address] [place], [place] [phone] Health MaintenanceDue DateLast DoneCommentsHEPATITIS C VIRUS FQLVUAPYL74/14/1981 KDSWGHJ45 1980HIV SCREENING EPRMVCIVGZ44/14/1996HEP B VACCINE (1 of 3 - 19+ 3-dose series)10/05/1999TDAP (ADULT)10/05/1999CERVICAL CANCER SCREENING EHHNMFWLYZ38/14/2002HPV VACCINE (1 - 3-dose SCDM series)10/05/2007LIPID OXXINGFGI24/14/2021MAMMOGRAM SCREENING UANSJKTCDR82/14/2021OVID-19 VACCINE (2 - 2024- season)/07/2022INFLUENZA VACCINE (#1)2025PNEUMOCOCCAL VACCINE SERIESAged OutNo longer eligible based on patient's age to complete this topic Procedures Procedure NamePriorityDate/TimeAssociated DiagnosisCommentsREFERRAL (OUTSIDE) Sgbfoge6303/08/2025 2:11 PM EDTfrom Last 3 Months Results * REFERRAL (OUTSIDE) (03/08/2025 2:11 PM EDT) Narrative Authorizing ProviderResult TypeResult StatusHistorical ProviderOSU OUTPATIENT REFERRALSFinal Result from Last 3 Months Insurance Care Teams Team MemberRelationshipSpecialtyStart DateEnd Gay De La Torre, CARE MANAGER [address] [place] [address] PCP - GeneralNurse Practitioner - Jddwtz71/4/24
--- OUTSIDE RECORDS SUMMARY | 2025-03-14 01:44 | XMS_ITS | Encounter Summary ---
Author Organization [facility] Address [address] [place] [address] Care Team Providers Care Recreational Aide Name Role Phone Gay De La Torre MD Unavailable Reason for Visit * ReasonOnset DateCommentsQuestions on medications.03/05/2025 Encounter Details DateTypeDepartmentCare Team (Latest Contact Info)Nbsndkfmkqs05/13/2025Telephone [facility] [address] [facility] [address] [place] [phone] Elizabeth Lockhart MA Questions on medications. Social History Tobacco UseTypesPacks/DayYears UsedDateSmoking Tobacco: Every LviMolcfuczhz616.8 Started: 05/24/1995Smokeless Tobacco: Never Comments:Current smoker, carlos ryedwin, 11-20 cigarettes/day Alcohol UseStandard Drinks/WeekCommentsNever0 (1 standard [...] set up. * Telephone Encounter - Elizabeth Lockhart MA - 03/05/2025 11:32 AM EDT Ariadna [...] Plan of Treatment DateTypeDepartmentCare Team (Latest Contact Info)Htivdqbkeui47/27/2025 10:20 AM EDTOffice Visit [facility] [address] [place] [address] Mary Grace Mejias MD 112 [facility] [address] [place] [address] 03/23/2025 11:30 AM EDTOffice Visit [facility] [address] [facility] [address] [place] [address] Terence Blum MD 703 [facility] [address] [place] [address] 07/25/2025 11:00 AM ESTOffice Visit [facility] [address] [place] [address] Cynthia English MD [address] [place] [address] documented as of this encounter Visit Diagnoses Not on filedocumented in this encounter Care Teams Team MemberRelationshipSpecialtyStart DateEnd Date Gay De La Torre MD [facility] [place] [address] Referring PhysicianFamily Medicine07/18/24documented as of this encounter
--- OUTSIDE RECORDS SUMMARY | 2025-03-14 01:44 | XMS_ITS | Clinical Summary ---
Author Organization [facility] Address [address] [place] [address] Phone Care Team Providers Care Bi Data Modeler Name Role Phone Mitali, Michelle London JEWELRY INSPECTOR-CAP COVERER Unavailable [phone] Kenneth Patel MD Unavailable [phone] Gay De La Torre JEWELRY INSPECTOR-CAP COVERER Primary Care Provider Allergies Active AllergyReactionsCriticalityNoted DateCommentsDoxycyclineOther,UnknownLow 01/19/2022 Patient states it was a long time ago and she did not have a severe reaction. She does not believe she is allergic, she just thinks she just experienced side effects. Sulfamethoxazole-TrimethoprimSwelling,IqmbaGkr98/03/2016 Patient states it was a long time ago and she did not have a severe reaction. She does not believe she is allergic, she just thinks she just experienced side effects. Medications MedicationSigDispense QuantityRefillsLast FilledStart DateEnd DateStatus predniSONE (Deltasone) 10 mg tablet Take 1 tablet (10 mg) by mouth once daily.05/12/2023ctive pregabalin (Lyrica) 75 mg capsule Take 1 capsule (75 mg) by mouth if needed.Active azaTHIOprine (Imuran) 50 mg tablet Take 3 tablets (150 mg) by mouth 3 times a day.02/16/2023ctive hydroxychloroquine (Plaquenil) 200 mg tablet Take 1 tablet (200 mg) by mouth 2 times a day.Active belimumab (Benlysta) 200 mg/mL injection Inject 1 mL (200 mg) under the skin 1 (one) time per week.02/04/2023ctive aspirin 81 mg chewable tablet Chew 1 tablet (81 mg) once daily.Active acetaminophen (Tylenol) 500 mg tablet Take 2 tablets (1,000 mg) by mouth every 8 hours if needed for mild pain (1 - 3), moderate pain (4 - 6), headaches or fever (temp greater than 38.0 C).Active clindamycin phosphate 1 % gel, once daily Apply topically once daily.05/26/2023ctive clobetasoL 0.05 % shampoo Apply topically. 1 application to the scalp in the shower topically 3-4 times a week10/23/2022ctive ergocalciferol (Vitamin D-2) 1.25 MG (80061 UT) capsule Take 1 capsule (50,000 Units) by mouth 1 (one) time per week.01/24/2023ctive fluocinonide (Lidex) 0.05 % external solution Apply topically once daily. apply to affected area on scalp topically qd-bid prn for 30 day(s)10/20/2022ctive folic acid (Folvite) 1 mg tablet Take 1 tablet (1 mg) by mouth once daily.01/15/2023ctive ibuprofen 200 mg tablet Take 3 tablets (600 mg) by mouth every 8 hours if needed.Active triamcinolone acetonide 0.025 % lotion 1 Application.06/23/2022ctive immune globulin, human, (Gammagard) infusion Infuse into a venous catheter 1 time.Active metoprolol tartrate (Lopressor) 50 mg tablet Indications:Paroxysmal supraventricular tachycardia,Essential hypertensionTake 1 tablet by mouth 4 times a day. 360 tablet /ctive Active Problems ProblemNoted DateDiagnosed DateCurrent zxdmoa6407/13/2023aroxysmal supraventricular daymcyperld73/20/2024Shortness of qmwwbd6707/13/2023AC (premature atrial contraction)07/13/20237804Iyyyfak68/17/2024epression, recurrent 06/09/20230334Alxfoeknb10/17/2024Essential gyoiqsqallkq42/17/2024utonomic gvmadznnxmj57/09/2024Obesity, Class III, BMI 40-49.9 (morbid obesity)09/07/2022 Obstructive sleep apnea jlmhyqer48/28/2022nemia, kxjcgotqanw45/19/2022iscoid lupus /24/2022Vitamin D tntfpehrhi80/14/2021hronic bilateral low back pain with bilateral qtstsqku02/08/1787Tzjcxqkitxhsje72/08/2015Vitamin B12 enbwpzrpgf58/08/2015 Resolved Problems ProblemNoted DateDiagnosed DateResolved WjwwVvdoprkrorf27/09/202403/09/2024 Family History Medical HistoryRelationNameCommentsNo Known ProblemsBrotherCancerFatherCrohn's diseaseMotherHeart diseaseSisterRelationNameStatusCommentsBrotherFatherMother Sister Social History Tobacco UseTypesPacks/DayYears UsedDateSmoking Tobacco: Every DayCigarettes Smokeless Tobacco: Never Tobacco Cessation:Ready to Q uit: No; Counseling Given: Yes Alcohol UseStandard Drinks/WeekCommentsNever0 (1 standard drink = 0.6 oz pure alcohol)CommentsUnknownSex and Gender InformationValueDate RecordedSex Assigned at BirthNot on fileLegal GiqDeeaid27/25/2022 9:42 PM ESTGender Identity Cylckj2602/21/2024 7:13 PM EDTSexual OrientationNot on file Last Filed Vital Signs Vital SignReadingTime TakenCommentsBlood Vmuhracf585/6003 3:06 PM EST Oraya343807/26/2024 3:06 PM ESTTemperature--Respiratory Rate--Oxygen Saturation-- Inhaled Oxygen Concentration--Lueirq158 kg (286 lb 12.8 oz)07/26/2024 3:06 PM OELZcmhfn654.2 cm (5' 7 )07/26/2024 3:06 PM ESTBody Mass Index44.9207/26/2024 3:06 PM EST Plan of Treatment DateTypeDepartmentCare Team (Latest Contact Info)Beqicvwvovc04/05/2026 11:00 AM ESTOffice Visit [facility] 703 [facility] [address] [place] [address] Lois Arguelles MD 703 [facility] [address] [place] [address] Health MaintenanceDue DateLast DoneCommentsHIV Sflwcgghg63/14/1981Lipid Panel 1980MMR Vaccines (1 of 1 - Standard series)1981Hepatitis C Screening 1998Hepatitis B Vaccines (1 of 3 - 19+ 3-dose series)10/05/1999 Pneumococcal Vaccine: Pediatrics and At-Risk Adult Patients (1 of 2 - PCV) 10/05/1999Zoster Vaccines (1 of 2)10/05/1999HPV/Ejcmru7410/04/2001DTaP/Tdap/Td Vaccines (1 - Tdap)2002HPV Vaccines (1 - Risk 3-dose Standard series) 10/05/2007Diabetes Imctspjpa872COVID-19 Vaccine (3 - Pfizer risk series)/07/2022, 02/08/2022Influenza Vaccine (#1)2024 Nnidmxyil06/14/377833/Yearly Adult Fgzmjeyc70/15/793460/5Cervical Cancer Kusbmzvln23/14/2028Pap Smear801/, 05/04/2008HIB Vaccines Aged OutNo longer eligible based on patient's age to complete this topic Hepatitis A VaccinesAged OutNo longer eligible based on patient's age to complete this topicIPV VaccinesAged OutNo longer eligible based on patient's age to complete this topicMeningococcal VaccineAged OutNo longer eligible based on patient's age to complete this topicRotavirus VaccinesAged OutNo longer eligible based on patient's age to complete this topic Procedures Procedure NamePriorityDate/TimeAssociated DiagnosisCommentsCONVERTED ACID TENDER NBJKYGLPVwpjyrd14/12/2008 12:00 AM EST from Last 3 Months or Most Recently Relevant to Health Maintenance Results * CONVERTED ACID TENDER CYTOLOGY (05/04/2008 12:00 AM EST)ComponentValueRef RangeTest MethodAnalysis TimePerformed AtPathologist SignaturePathology Report ? Date of Procedure: ??05/04/2008 ? Pathologist: Date Reported: 05/09/2008 Date Received: ??05/07/2008 Submitting Physician: Conversion ? FINAL CYTOLOGICAL INTERPRETATION Satisfactory for evaluation. Transformation zone insufficient. Negative for squamous intraepithelial lesion or malignancy. - SCREENED BY: DYLAN FORREST (ASCP) ? Note: ??Pap smear testing is a screening procedure and subject to both false negative and false positive results as evidenced by published data. Your patient's test result should be interpreted in this context, together with patient's history and clinical findings. ? - Signed by: JESSICA ORTIZ [facility] ?05/09/08 Electronically Signed Out By [facility], Cytology/ By the signature on this report, the individual or group listed as making the Final Interpretation/Diagnosis certifies that they have reviewed this case. Educational Note: Cervical cytology is a screening procedure primarily for squamous cancers and precursors and has associated false-negative and false-positive results as evidenced by published data. ??Your patient's test should be interpreted in this context, together with patient's history and clinical findings. ??Regular sampling and follow-up of unexplained clinical signs and symptoms are recommended to minimize false negative results. Clinical History Date of Last Menstrual Period: ? (Not Entered) - HISTORY & COMMENTS LMP: 02/14/08 ? Reflex HPV ordered if result is ASCUS ? Source of Specimen A: Unknown Part Type [facility] Department of Pathology [address] COPATHCONVERTED FINAL DIAGNOSISSatisfactory for evaluation. Transformation zone insufficient. Negative for squamous intraepithelial lesion or malignancy. - SCREENED BY: JESSICA ORTIZ CT (ASCP) ? Note: ??Pap smear testing is a screening procedure and subject to both false negative and false positive results as evidenced by published data. Your patient's test result should be interpreted in this context, together with patient's history and clinical findings. ? - Signed by: JESSICA ORTIZ [facility] ?05/09/08 [facility] COPATHCONVERTED CLINICAL DIAGNOSIS-HISTORY- HISTORY & COMMENTS LMP: 02/14/08 ? Reflex HPV ordered if result is ASCUS ? [facility] COPATHCONVERTED SLIDE-BLOCK DESCRIPTION- TISSUES - ??1. CERVICAL THIN PREP ?- [facility] COPATHCONVERTED REPORT COMMENTSSt Bartolo Case # [id number] ?DOS: 05/04/08 ? - ORD PHYSICIAN: Jose Blackburn MD ? - ORD PROCEDURES - ? CYTO PAP TLP MAN SCR /1 ? - COPIES TO: ? Alexey,Jose ??MD ? - Status History - ? ENT ? 05/07/08 1128 ??ISABELL HARRIS ? DIAG ?05/09/08 0750 ??JESSICA ORTIZ ? SOUT ?05/09/08 1524 ??ANGELMEANTORIE ?- [place] Conversion Report - [facility] COPATHCONVERTED FINAL REPORT PDF LINK TO COPY AND PASTE \copathshare\copath\PDF \[id number].pdfHER[facility] COPATHSpecimen (Source) Anatomical Location / LateralityCollection Method / VolumeCollection Time Received TimeUnrecognized Part Type 11:28 AM EST Narrative Authorizing ProviderResult TypeResult StatusCopath ConversionLAB CYTOLOGY ORDERABLESFinal ResultPerforming OrganizationAddressCity/State/ZIP CodePhone Number [facility] COPATH [address] [place] [address] from Last 3 Months or Most Recently Relevant to Health Maintenance Insurance MemberSubscriberPlan / Payer (Effective 2017-Present)Name:Ariadna Paniagua Relation to Subscriber:SelfName:Ariadna arias Payer ID:[id number] (NAIC) Group ID:[id number] Type:Not on file Address: [address] [place] [place] [id number] Care Teams Team MemberRelationshipSpecialtyStart DateEnd Date Gay De La Torre, JEWELRY INSPECTOR-CAP COVERER [address] [place] [address] PCP - General07/13/23 Michelle Jasmine, JEWELRY INSPECTOR-CAP COVERER Nurse PractitionerCardiology06/08/23 Kenneth Patel MD Consulting PhysicianCardiology06/23/23
--- OUTSIDE RECORDS SUMMARY | 2025-03-14 01:44 | XMS_ITS | Encounter Summary ---
Author Organization [facility] Address [address] [facility] [place] [address] Care Team Providers Care Dry Cleaning Supervisor Name Role Phone Gay De La Torre MD Unavailable [phone] Encounter Details DateTypeDepartmentCare Team (Latest Contact Info)Uzqjwhfhmcd04/15/2025Orders Only [facility] 703 [facility] 150 [place] [phone] Terence Blum MD 703 [facility] 150 [place] [address] Social History Tobacco UseTypesPacks/DayYears UsedDateSmoking Tobacco: Every JzuGujznmedsb091.8 Started: 05/24/1995Smokeless Tobacco: Never Comments:Current smoker, carlos ryday, 11-20 cigarettes/day Alcohol UseStandard Drinks/WeekCommentsNever0 (1 standard drink = 0.6 oz pure alcohol)Caffeine intake : > 4 cups per dayCommentsNoSex and Gender InformationValueDate RecordedSex Assigned at BirthNot on fileLegal SexFemale 08/05/2022 7:18 PM EDTGender IdentityNot on fileSexual OrientationNot on file documented as of this encounter Plan of Treatment DateTypeDeadvanced care hospital of southern new mexicomentCare Team (Latest Contact Info)Ihfghobmgrf69/27/2025 10:20 AM EDTOffice Visit [facility] [address] [facility] [address] [place] [address] Mary Grace Mejias MD 112 [facility] 130 [place] [address] 03/23/2025 11:30 AM EDTOffice Visit [facility] [address] [place] [phone] Terence Bulm MD [address] [place] [address] 07/25/2025 11:00 AM ESTOffice Visit [facility] [address] [place] [phone] Cynthia English MD [address] [place] [address] documented as of this encounter Procedures Procedure NamePriorityDate/TimeAssociated DiagnosisCommentsGENERAL PATHOLOGY Notuoit1803/02/2025 11:32 AM EDTdocumented in this encounter Results * GENERAL PATHOLOGY (03/02/2025 11:32 AM EDT) Narrative Authorizing ProviderResult TypeResult StatusAlbert GIUSEPPE MeredithLINISYNCFinal Result documented in this encounter Visit Diagnoses Not on filedocumented in this encounter Care Teams Team MemberRelationshipSpecialtyStart DateEnd Date Gay De La Torre MD [address] [place] [address] Referring PhysicianFamily Medicine07/18/24documented as of this encounter
--- OUTSIDE RECORDS SUMMARY | 2025-03-14 01:44 | XMS_ITS | Encounter Summary ---
Author Organization [facility] Address [address] [place] [address] Care Team Providers Care Dress Designer Name Role Phone Gay De La Torre MD Unavailable [phone] Reason for Visit * ReasonOnset DateCommentsFinal path [facility]/13/[facility]25 Encounter Details DateTypeDepartmentCare Team (Latest Contact Info)Pfvcahoqxrn38/21/2025Telephone [facility] 7[address] [facility] 150 [place] [address] Elizabeth Lockhart MA Final path came back from [facility] Social History Tobacco UseTypesPacks/DayYears UsedDateSmoking Tobacco: Every FrhWvexjilgmu569.8 Started: 05/24/1995Smokeless Tobacco: Never Comments:Current smoker, carlos mars, 11-20 cigarettes/day Alcohol UseStandard Drinks/WeekCommentsNever0 (1 standard drink = 0.6 oz pure alcohol)Caffeine intake : > 4 cups per dayCommentsNoSex and Gender InformationValueDate RecordedSex Assigned at BirthNot on fileLegal SexFemale 08/05/2022 7:18 PM EDTGender IdentityNot on fileSexual OrientationNot on file documented as of this encounter Miscellaneous Notes * Telephone Encounter - Elizabeth Lockhart MA - 03/13/2025 12:[address] Blum she should not need any further antibiotics. I called patient and gave the above information. Pt verbalized understanding. * Telephone Encounter - Elizabeth Lockhart MA - 03/13/2025 9:54 AM EDT Patient called stating final path results came back from [facility] stating it showed Serratia marcescens. Previously Dr Blum was going to prescribe keflex. Patient can not take fluoroquinolones. SeeNote Below: Ariadna Paniagua 1980 asked to talk to you before her medications are prescribed. She said that she believes that she cannot take some of them and has some confusion concerning that. I spoke to Dr Blum and he said the keflex should cover it. She is looking for something that will not interfere with her lupus and will cover her long standing breast infection and the pilonidal cultures. Asking for IV antibiotics. Spoke to the infusion center and they will get everything set up and call patient. Order faxed to them and patient was called but had to leave a message for patient to call back. She can have Augmentin, Flagyl without issues and it will not interfer with her Lupus. I did send Dr Blum a message, patient does know I will call her back when I have an answer. documented in this encounter Plan of Treatment DateTypeDepartmentCare Team (Latest Contact Info)Xszxkflnkwv73/27/2025 10:20 AM EDTOffice Visit [facility] [address] [place] [address] Mary Grace Mejias MD 112 [facility] 130 [place] [address] 03/23/2025 11:30 AM EDTOffice Visit [facility] 7[address] [facility] [address] [place] [address] Terence Blum MD 703 [facility] 150 [place] [address] 07/25/2025 11:00 AM ESTOffice Visit [facility] [address] [place] [address] Cynthia English MD [address] [place] [address] documented as of this encounter Visit Diagnoses Not on filedocumented in this encounter Care Teams Team MemberRelationshipSpecialtyStart DateEnd Date Gay De La Torre MD [address] [place] [address] Referring PhysicianFamily Medicine07/18/24documented as of this encounter
--- OUTSIDE RECORDS SUMMARY | 2025-03-14 01:44 | XMS_ITS | Encounter Summary ---
Author Organization [facility] Address [address] [place] [address] Care Team Providers Care Acoustical Tile Patternmaker Name Role Phone Gay De La Torre MD Unavailable [phone] Encounter Details DateTypeDepartmentCare Team (Latest Contact Info)Wauqqhupniy04/10/2025External Result Encounter [facility] Unsolicited Terence Blum MD [address] [facility] [address] [place] [address] Social History Tobacco UseTypesPacks/DayYears UsedDateSmoking Tobacco: Every EjsGuumccyoxu492.8 Started: 05/24/1995Smokeless Tobacco: Never Comments:Current smoker, carlos ryday, 11-20 cigarettes/day Alcohol UseStandard Drinks/WeekCommentsNever0 (1 standard drink = 0.6 oz pure alcohol)Caffeine intake : > 4 cups per dayCommentsNoSex and Gender InformationValueDate RecordedSex Assigned at BirthNot on fileLegal SexFemale 08/05/2022 7:18 PM EDTGender IdentityNot on fileSexual OrientationNot on file documented as of this encounter Plan of Treatment DateTypeDepiggott community hospitalCare Team (Latest Contact Info)Wyahvqztpgf57/27/2025 10:20 AM EDTOffice Visit [facility] [address] [place] [address] Mary Grace Mejias MD [address] [place] [address] 03/23/2025 11:30 AM EDTOffice Visit [facility] [address] [facility] [address] [place] [phone] Terence Blum MD [address] [facility] [address] [place] [address] 07/25/2025 11:00 AM ESTOffice Visit [facility] [place] [facility] [address] [place] [phone] Cynthia English MD [address] [place] [address] documented as of this encounter Procedures Procedure NamePriorityDate/TimeAssociated DiagnosisCommentsAEROBIC ELPIDIO CHARGE (NMIC56)Ctddrro1203/02/2025 5:17 PM EDT ANAEROBIC TRSTUADTttqdqa18/10/2025 5:17 PM EDT AEROBIC XXCGLHOUehagph69/10/2025 5:17 PM EDT GRAM VEIWWRxzeufq09/10/2025 5:17 PM EDT documented in this encounter Results * (ABNORMAL) AEROBIC ELPIDIO CHARGE (NMIC56) (03/02/2025 5:17 PM EDT)ComponentValue Ref RangeTest MethodAnalysis TimePerformed AtPathologist SignatureAMIKACIN<16 (S)03/04/2025 9:[address] [facility] CtrAZTREONAM<4(I) 03/04/2025 9:[address] [facility] CtrCEFEPIME<2(S)03/04/2025 9:[address] [facility] CtrCEFTAZIDIME<1(I)03/04/2025 9:[address] [facility] CtrCEFTAZIDIME/AVIBACTAM<4(S)03/04/2025 9:[address] [facility] CtrCEFTOLOZANE/TAZOBACTAM<2(S)03/04/2025 9:[address] [facility] CtrCEFTRIAXONE<1(I)03/04/2025 9:13 AM EDT [facility] CtrCIPROFLOXACIN>2(R)03/04/2025 9:13 AM EDT [facility] CtrERTAPENEM<0.5(S)03/04/2025 9:[address] [facility] CtrGENTAMICIN<2(S)03/04/2025 9:[address] [facility] CtrLEVOFLOXACIN<0.5(S)03/04/2025 9:[address] [facility] CtrMEROPENEM<1(S)03/04/2025 9:[address] [facility] Ctr MEROPENEM/VABORBACTAM<2(S)03/04/2025 9:[address] [facility] Ctr PIPERACILLIN/TAZOBACTAM<8(I)03/04/2025 9:[address] [facility] CtrTETRACYCLINE>8(R)03/04/2025 9:[address] [facility] Ctr TIGECYCLINE<2(S)03/04/2025 9:[address] [facility] CtrTOBRAMYCIN <2(S)03/04/2025 9:[address] [facility] Ctr TRIMETHOPRIM/SULFAMETHOXAZOLE<0.5/9.5(S)03/04/2025 9:[address] [facility] CtrSpecimen (Source)Anatomical Location / Laterality Collection Method / VolumeCollection TimeReceived TimeOtherSpecimen from uterine cervix / Iuvedol2803/02/2025 5:17 PM EDT1 5:38 PM EDTComment: Abscess Narrative Authorizing ProviderResult TypeResult StatusAlbert Kulwant Pacheco MDFIRELANDSFinal ResultPerforming OrganizationAddressCity/State/ZIP CodePhone Number [facility] [address] [place] [address], [facility] [address] [place] [address] * (ABNORMAL) Gram stain (03/02/2025 5:17 PM EDT)ComponentValueRef RangeTest MethodAnalysis TimePerformed AtPathologist SignatureGRAM STAIN1+ Gram Positive Cocci(A)03/03/2025 2:[address] [facility] CtrGRAM STAIN2+ White Blood Cells(A)03/03/2025 2:[address] [facility] CtrSpecimen (Source)Anatomical Location / LateralityCollection Method / VolumeCollection TimeReceived TimeOtherSpecimen from uterine cervix / Xnidisz8103/02/2025 5:17 PM EDT1 5:38 PM EDTComment:Abscess Narrative [facility] - 03/13/2025 12:54 PM EDT Comment pilonidal abscess culture Authorizing ProviderResult TypeResult MARGOT Celaya MICROBIOLOGY - GENERAL ORDERABLESFinal ResultPerforming OrganizationAddressCity/State/ZIP CodePhone Number [facility] [address] [place] [address], [facility] [address] [place] [address] * ANAEROBIC CULTURE (03/02/2025 5:17 PM EDT)ComponentValueRef RangeTest Method Analysis TimePerformed AtPathologist SignatureFRMC ORGANISMPrevotella species 03/13/2025 12:[address] [facility] CtrCOMMENTS.03/13/2025 12:[address] [facility] CtrQUANTITY OF GROWTHLight Sbnmrf5003/13/2025 12:[address] [facility] CtrSEND TEST TO REF. LABSent to [facility] for [facility]ST[facility] ID03/13/2025 12:[address] [facility] CtrComment: Identification performed at: ?? - [facility] [address] ??[id number] Principal Statistical Scientist: Doyle Mendenhall PhD, Phone: ??[phone] Please contact Microbiology within 7 days if anaerobic susceptibilities are needed. Specimen (Source)Anatomical Location / LateralityCollection Method / Volume Collection TimeReceived TimeOtherSpecimen from uterine cervix / Unknown 03/02/2025 5:17 PM EDT1 5:38 PM EDTComment:Abscess Narrative [facility] - 03/13/2025 12:54 PM EDT Comment pilonidal abscess culture Authorizing ProviderResult TypeResult StatusTerence Pacheco MDLAB BLOOD ORDERABLESFinal ResultPerforming OrganizationAddressCity/State/ZIP CodePhone Number [facility] [address] [place] [address], [facility] [address] [place] [address] * AEROBIC CULTURE (03/02/2025 5:17 PM EDT)ComponentValueRef RangeTest Method Analysis TimePerformed AtPathologist SignatureFRMC ORGANISMSerratia marcescens 03/04/2025 9:[address] [facility] CtrQUANTITY OF GROWTHLight Ckpppp5603/04/2025 9:[address] [facility] CtrSpecimen (Source) Anatomical Location / LateralityCollection Method / VolumeCollection Time Received TimeOtherSpecimen from uterine cervix / Xgtqlme3503/02/2025 5:17 PM EDT 03/02/2025 5:38 PM EDTComment:Abscess Narrative [facility] - 03/13/2025 12:54 PM EDT Comment pilonidal abscess culture Authorizing ProviderResult TypeResult MARGOT Celaya BLOOD ORDERABLESFinal ResultPerforming OrganizationAddressCity/State/ZIP CodePhone Number [facility] [address] [place] [address], [facility] [address] [place] [address] documented in this encounter Visit Diagnoses Not on filedocumented in this encounter Care Teams Team MemberRelationshipSpecialtyStart DateEnd Date Gay De La Torre MD [address] [place], [place] [phone] Referring PhysicianFamily Medicine07/18/24documented as of this encounter
--- OUTSIDE RECORDS SUMMARY | 2025-03-14 01:44 | XMS_ITS | Clinical Summary ---
Author Organization [facility] Address [address] [place] [address] Care Team Providers Care Law Firm Partner Name Role Phone Maunel Klein MD Unavailable [phone] Manuel Klein MD Primary Care Provider [phone] Manuel Klein MD Unavailable [phone] Allergies Active AllergyReactionsCriticalityNoted DateCommentsSulfamethoxazoleOther: See Ylmfyeoo55/08/2015 CAUSED ENLARGED LYMPH NODES JcwqvcndqsaFyamcsfPno46/12/2022 Patient states it was a long time ago and she did not have a severe reaction. She does not believe she is allergic, she just thinks she just experienced side effects. CodeineOther: See Tbwvkyqq42/08/2015 Make her feel Jittery. OTHERWISE, NO SOB/WHEEZING, and NO DYSPHAGIA, NO URTICARIA, NO ANGIOEDEMA DoxycyclineOther: See GwolueudJwu05/29/2022 Patient states it was a long time ago and she did not have a severe reaction. She does not believe she is allergic, she just thinks she just experienced side effects. JjuyfTlpgTpa50/08/2015 Patient states it was a long time ago and she did not have a severe reaction. She does not believe she is allergic, she just thinks she just experienced side effects. Sulfamethoxazole-RgikihyjgmpoAkqnlmjiCpa47/12/2022 Patient states it was a long time ago and she did not have a severe reaction. She does not believe she is allergic, she just thinks she just experienced side effects. TrimethoprimOther: See BgoqxjulQqn39/29/2022 Patient states it was a long time ago and she did not have a severe reaction. She does not believe she is allergic, she just thinks she just experienced side effects. Medications MedicationSigDispense QuantityRefillsLast FilledStart DateEnd DateStatus acetaminophen (TYLENOL) 500 mg tablet Take 1,000 mg by mouth.Active aspirin 81 mg chewable tablet Take 81 mg by mouth.Active ibuprofen (MOTRIN) 200 mg tablet Take 600 mg by mouth. Active CPAP/BIPAP/OTHER Indications:JOSE RAFAEL (obstructive sleep apnea)Type .CPAPSettings into a note to see current settings/supplies/DME information. 1 Each /Active metoprolol tartrate, short acting, (LOPRESSOR) 50 mg tablet Take 100 mg by mouth two times a day.05/25/2022ctive pregabalin (LYRICA) 75 mg capsule Indications:Fibromyalgiatake 1 capsule by mouth three times a day 270 capsule 3103Active azaTHIOprine (IMURAN) 50 mg tablet Indications:Other systemic lupus erythematosus with other organ involvement (HCC),Encounter for fpc 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TAKE 3 TABLETS BY MOUTH DAILY WITH FOOD. HOLD IF ON ANTIBIOTICS OR ILL. 270 tablet 4Active folic acid 1 mg tablet Indications:Vitamin B12 deficiencyTake 1 tablet by mouth once daily. 90 tablet 4Active qcwgiwfufqCHJFJ-fwnmtq-nutrocswt (BMX 1:1:1) 1:1:1 liqd Take 5 mL by mouth every 6 hours as needed. 500 mL 5Active TRULICITY 0.75 mg/0.5 mL pen injector Inject 0.75 mg subcutaneously one time a week. Per PCP5Active belimumab (BENLYSTA) 200 mg/mL auto-injector Indications:Other systemic lupus erythematosus with other organ involvement (HCC)Inject 200mg (1 pen) subcutaneously once weekly 12 mL 5Active ergocalciferol 50,000 unit capsule (VITAMIN D2, DRISDOL) Indications:Vitamin D deficiencyTake 1cap by mouth 3times a week x 10weeks, then once a week with food. [address] (PROTONIX) 40 mg tablet TAKE 1 TABLET BY MOUTH 1/2 TO 1 HOUR BEFORE MORNING MEAL05/31/2025Active tacrolimus (PROTOPIC) 0.1 % ointment APPLY TO AFFECTED AREA ON FOREHEAD TWICE A DAY NEEDED FOR FLARES, HOLD IF CLEAR11/27/2024tive thiamine (VITAMIN B1) 100 mg tablet Take 100 mg by mouth every morning.10/27/2024tive nystatin (MYCOSTATIN) 100,000 unit/mL suspension TAKE 4 ML BY MOUTH / THROAT 4 TIMES A DAY FOR 7 DAYS11/06/2024tive LO LOESTRIN FE 1 mg-10 mcg (24)/10 mcg (2) Take 1 tablet by mouth once daily.11/17/2024tive fluocinonide (LIDEX) 0.05 % external solution 11/29/2024tive DULoxetine (CYMBALTA) 20 mg capsule Take 1 capsule by mouth once daily.11/27/2024tive clotrimazole (MYCELEX) 10 mg bk USE 1 BK WHILE ON IMMUNOSUPPRESSIVE MEDICINE BY MOUTH/THROAT 3 TIMES A DAY 10/23/2024tive Clobetasol Propionate 0.05 % sham 11/29/2024tive KLONOPIN 0.5 mg tablet 1 tablet Orally Once a day prn for 30 days F41.9007/31/2024tive Clindamycin Phosphate (CLEOCIN T) 1 % lotion APPLY A THIN LAYER TO AFFECTED AREAS ON THE THIGHS ONCE A DAY11/01/2024tive HIBICLENS 4 % external liquid 11/29/2024tive tretinoin (RETIN-A) 0.025 % topical cream Apply to face, once daily at evening/night time, 30 day qprsou1911/23/2024tive hydrOXYchloroQUINE (PLAQUENIL) 200 mg tablet Indications:CHRISTIAN positive,Other systemic lupus erythematosus with other organ involvement (HCC)TAKE 1 TAB TWICE A DAY WITH FOOD *SUNSCREEN WHILE OUTDOORS/OPHTHAMOLOGY EVERY 6-12 MONTHS WHILE ON* 60 tablet 11001/23/2025tive predniSONE (DELTASONE) 10 mg tablet Indications:Other systemic lupus erythematosus with other organ involvement (HCC)Take 40mg daily x 3, decrease by 5mg every 3days until taking 10mg daily with food thereafter (no oral nsaids) 120 tablet 5Active Active Problems ProblemNoted DateDiagnosed DateIron deficiency bqeucj9606/16/2024 Mvimpshucpekuvkavocdq90/09/2024Frequent /09/2024History of vitamin D ryqiaprhjq84/14/2024hronic fatigue and aydvdou2806/10/2023ilateral wrist pain 02/04/2023Raynaud's disease without wxaugvuc86/14/2023Steroid-induced mmuprlzlgftn69/14/2023Long term current use of systemic apgdxjec55/14/2023 Excessive and frequent menstruation with irregular cycle Obesity, Class III, BMI >= 40009/07/2022Long-term use of high-risk medication 06/15/2022NA mdenrulq13/23/2023OSA (obstructive sleep apnea)05/20/2022 Somnolence, bozllgw6305/20/2022nemia, xjhgvixmmaw91 Megaloblastic anemia due to vitamin B12 znloeszjrk90/12/2022iscoid lupus ccnsvcdspalzn34/24/9297Abellbxazkkg51/03/2022ystemic lupus erythematosus 10/24/2021Vitamin D fyvzpuwtle16/14/2021levated sed rate03/05/2021High total serum IgM03/05/2021econdary osteoarthritis of multiple sites03/05/2021ash and nonspecific skin gixrwleh75/13/2021welling of lymph nodes03/05/2021hronic pain of toes of both feet03/05/2021ilateral leg ctliisge63/13/2021Hair loss 03/05/2021Family history of Crohn's xgwisfc1703/05/2021ong-term use of Plaquenil 03/05/2021ilateral aesbfbdisxcj24/22/2016Vitamin B12 rwusxshaef23/08/2015 Dxofgzsfjlzlld83/08/9436Wprtmj74/08/2015Chronic bilateral low back pain with bilateral yvsmrazn27/08/2015Depression, recurrentChronic pain syndromePain, hip ObesityTobacco use disorder Resolved Problems ProblemNoted DateDiagnosed DateResolved DateObesity, Class II, BMI 35-39.9 Obesity (BMI 30-39.9) Encounters DateTypeDepartmentCare OneoTsfjtniapok03/01/2025 9:30 AM EDTInfusion Center Hematology/Oncology [address] [place] [address] [place] [address] Frequent infections (Primary Dx); Hypogammaglobulinemia (HCC); Bilateral leg weakness; Discoid lupus bjimxghmdzfzh58/01/2025 9:00 AM EDTVisit (SP) Office Hematology/Oncology [address] [place] [address] [place] [address] Fara Lopez APRN.COUNT TEAM MEMBER Frequent infections (Primary Dx); Hypogammaglobulinemia (HCC); Bilateral leg weakness; Discoid lupus erythematosus; Vitamin B12 deficiency; Shortness of breath; Other iron deficiency anemia; Malaise and ekjmchk6202/21/2025 Get Medical Advice Hematology/Oncology [address] [place] [address] [place] [address] Provider, Ccf Blood work02/21/2025Telephone Cancer Appts [address] [place] [address] Fara Lopez APRN.COUNT TEAM MEMBER Cevjohq6502/12/2025Telephone Hematology/Oncology [address] [place] [address] [place] [address] Enma Hamm RN Lab Doonup5802/08/2025 2:00 PM [facility] [place] [facility] [address] [place] [address] [place] [address] Elevated sed rate (Primary Dx); Megaloblastic anemia due to vitamin B12 deficiency; Other systemic lupus erythematosus with other organ involvement (HCC)02/06/2025 Orders Only Hematology/Oncology [address] [place] [address] [place] [address] Jose Cho MD 01/24/2025 9:00 AM [facility] [place] [facility] [address] [place] [address] [place] [address] Frequent infections (Primary Dx); Hypogammaglobulinemia (HCC); Bilateral leg weakness; Discoid lupus erythematosus; Elevated sed rate; Megaloblastic anemia due to vitamin B12 bfbtcatzpy90/03/2025Orders Only Hematology/Oncology [address] [place] [address] [place] [address] Jose Cho MD Frequent infections (Primary Dx); Hypogammaglobulinemia (HCC); Bilateral leg weakness; Discoid lupus uhrhxlkklybcf69/02/2025Refill [facility]umatology [address] [address] Sandra Park MD Refill Atfgssd8701/22/20253278Xdjagf55/28/2025Telephone Rheumatology [address] [facility] [address] Sandra Park MD Vmioger8001/11/2025 2:00 PM [facility] [address] [place] [address] Other systemic lupus erythematosus with other organ involvement (HCC) (Primary Dx); Elevated LFTs; Anemia of chronic disease; Elevated sed rate; Elevated C-reactive protein (CRP); Vitamin D deficiency; Vitamin B12 deficiency; Screening-pulmonary TB12/27/2024 9:00 AM [facility] Hematology/Oncology [address] [place] [address] [place] [address] Frequent infections (Primary Dx); Hypogammaglobulinemia (HCC); Bilateral leg weakness; Discoid lupus erythematosus; Elevated sed rate; Megaloblastic anemia due to vitamin B12 xleyekfkgu04/30/2025Orders Only Hematology/Oncology [address] [place] [address] Neda Hill, PAJuliusC 12/19/2024Orders Only Hematology/Oncology [address] [place] [address] [place] [address] Neda Hill PAJuliusC 12/19/2024Orders Only Hematology/Oncology [address] [place] [address] [place] [address] Rebekah Rojas, MAURILIO.COUNT TEAM MEMBER 12/14/2024 2:00 PM [facility] Hematology/Oncology [address] [place] [address] [place] [address] Other systemic lupus erythematosus with other organ involvement (HCC) (Primary Dx)12/14/2024bstract Neurology [address] [place] [address] [facility] CMN12/14/2024Orders Only Rheumatology [address] [facility] [place] [address] Sandra Park MD 07/22/2025Travelfrom Last 3 Months Immunizations ImmunizationAdministration DatesNext DueCOVID-19 vaccine, age 12+ yr (PFIZER- BIONTECH COMIRNATY)02/23/2023 Family History Medical HistoryRelationCommentsCancerFatherstomachCrohn's [Other]MotherRelation StatusCommentsDaughter 1AliveDaughter 2AliveFatherDeceased (Age 57)stomach cancerMotherAlive (Age 55)crohn's diseaseSisterAliveSonAlive Social History Tobacco UseTypesPacks/DayYears UsedDateSmoking Tobacco: Every GkjWpctunrlvc229 Smokeless Tobacco: Never Tobacco Cessation:Ready to Q uit: Not Asked; Counseling Given: Not Answered Alcohol UseStandard Drinks/WeekCommentsNo0 (1 standard drink = 0.6 oz pure alcohol)PHQ-2AnswerDate RecordedPHQ-2 qtqfd686rea Deprivation Index AnswerDate RecordedNational Score (1-100), lower number is lower risk59 09/24/2022State Score (1-10), lower number is lower aryv4643Data from: https://www.neighborhoodatlas.[facility].edu/. Last address used for rkmkqyqqjs[address]3CommentsNoSex and Gender InformationValueDate RecordedSex Assigned at BirthNot on fileLegal SexFemale 05/31/2014 2:51 PM ESTGender IdentityNot on fileSexual OrientationNot on file Last Filed Vital Signs Vital SignReadingTime TakenCommentsBlood Pazvytng265/6310 2:39 PM EDT Mivnm41740/01/2025 2:39 PM YSNOrfzrlglttf75.4 ??C (97.6 ??F)02/21/2025 2:39 PM EDTRespiratory Pwiv4016 2:39 PM EDTOxygen Flcfvpfyrv57%02/21/2025 2:39 PM EDTInhaled Oxygen Concentration--Hbivay210.1 kg (286 lb 13.1 oz)02/21/2025 9:13 AM BICYluyng317.2 cm (5' 7.01 )02/21/2025 9:13 AM EDTBody Mass Index44.91 02/21/2025 9:13 AM EDT Plan of Treatment DateTypeDepartmentCare Team (Latest Contact Info)Pkiyzlzyplx34/29/2025 9:00 AM EDTOffice Visit [facility] [address] [place] [address] 4 week follow up IVIG - pt to see MASON for this appt per Itbuat3003/21/2025 9:20 AM EDTVisit (SP) Office Hematology/Oncology [address] [place] [address] Jose Cho MD [address] [place] [address] 4 week follow up IVIG - pt to see MASON for this appt per Hfgpem2103/21/2025 9:40 AM EDTInfusion Center Hematology/Oncology [address] [place] [address] Gabbi, Chair [address] [place] [address] 4 week follow up IVIG - pt to see MASON for this appt per Qpvfee6704/05/2025 2:00 PM ESTInfusion Center Hematology/Oncology [address] [place] [address] BENLYSTA -05/03/2025 2:00 PM ESTInfwil[facility]Oncology [address] [place] [address] BENLYS -Health MaintenanceDue DateLast DoneCommentsCervical Cancer Screening 10/05/1991Anxiety Qmfvazdbe93/14/1999HIV Lbdddjjhg54/14/1999DTaP,Tdap,Td Vaccine (1 - Tdap)10/05/1999Pneumococcal Vaccine (1 of 2 - PCV)10/05/1999Shingrix Vaccine (1 of 2)10/05/1999HPV Vaccine (1 - Risk 3-dose SCDM series)10/05/2007 Mammogram Yxsgwvdcx41/14/2021Covid-19 Vaccine ( season)2025 02/23/2023, 02/08/2022, 05/26/2021, Additional history existsInfluenza Vaccine (#1)01/22/2025Hepatitis C FzjxmhppzRcudqmotl83/21/2025, 03/05/2021 Procedures Procedure NamePriorityDate/TimeAssociated DiagnosisCommentsIMMUNOGLOBULINS MARGIE Cnmjlnz7702/21/2025 8:51 AM EDT Hypogammaglobulinemia (HCC) Vitamin B12 deficiency Other iron deficiency anemia FOLATE IXHWLOdpxhwx50/01/2025 8:51 AM EDT Hypogammaglobulinemia (HCC) Vitamin B12 deficiency Other iron deficiency anemia VITAMIN B12 QOSYRIgwhbtn00/01/2025 8:51 AM EDT Hypogammaglobulinemia (HCC) Vitamin B12 deficiency Other iron deficiency anemia FERRITIN PLBIjbmndy91/01/2025 8:51 AM EDT Hypogammaglobulinemia (HCC) Vitamin B12 deficiency Other iron deficiency anemia IRON + YVQPDabcycy89/01/2025 8:51 AM EDT Hypogammaglobulinemia (HCC) Vitamin B12 deficiency Other iron deficiency anemia COMPREHENSIVE METABOLIC PDGNLYwnetsj85/01/2025 8:51 AM EDT Hypogammaglobulinemia (HCC) Vitamin B12 deficiency Other iron deficiency anemia CBC + AFXFXdbyhdb71/01/2025 8:51 AM EDT Hypogammaglobulinemia (HCC) Vitamin B12 deficiency Other iron deficiency anemia HEP B CORE AB PNQJBIotarva93/21/2025 1:48 PM EDT Elevated LFTs HEP B SURF AB FLSDIqcahsg62/21/2025 1:48 PM EDT Elevated LFTs HEP B SURF AG HWYHBknhudj43/21/2025 1:48 PM EDT Elevated LFTs HEPATITIS C ANTIBODY IA WITH JVIJDUDWOQCHVjovzip29/21/2025 1:48 PM EDT Elevated LFTs BLOOD TB VHKENCXryytqj64/21/2025 1:48 PM EDT Screening-pulmonary TB HEP REMOTE PANEL DNXazzmab20/21/2025 1:48 PM EDT Elevated LFTs VITAMIN B12 RZDOMNdzlkme52/21/2025 1:48 PM EDT Vitamin B12 deficiency VITAMIN D 25 ZIDVDTSIbotaeo29/21/2025 1:48 PM EDT Vitamin D deficiency C-REACTIVE PROTEIN (CRP)Esoadki9401/11/2025 1:48 PM EDT Elevated sed rate Elevated C-reactive protein (CRP) SED RATE DCTFEMBOZJBgixdzg02/21/2025 1:48 PM EDT Elevated sed rate Elevated C-reactive protein (CRP) COMPLETE BLOOD KAKDWBqoozrh63/21/2025 1:48 PM EDT Anemia of chronic disease COMPREHENSIVE METABOLIC SNKENIjdmhqz75/21/2025 1:48 PM EDT Elevated LFTs from Last 3 Months Results * VITAMIN B12 (02/21/2025 8:51 AM EDT) Only the most recent of2 resultswithin the time period is included. ComponentValueRef RangeTest MethodAnalysis TimePerformed AtPathologist Signature Vitamin [id number] - 1,245 pg/mL02/21/2025 10:05 PM EDTCSCCI HOSPITAL LIMA LABSpecimen (Source)Anatomical Location / LateralityCollection Method / VolumeCollection TimeReceived TimeBloodBLOOD SPECIMEN / UnknownVenipuncture / Lhlvdeo8202/21/2025 8:51 AM EDT1 8:51 AM EDT Narrative Authorizing ProviderResult TypeResult StatusJaimee John SIMSN.CNPLABORATORYFinal ResultPerforming OrganizationAddressCity/State/ZIP CodePhone Number [facility] [address] [facility] [address], [place] * (ABNORMAL) IRON AND TIBC (02/21/2025 8:51 AM EDT)ComponentValueRef RangeTest MethodAnalysis TimePerformed AtPathologist IdgcupqbiTggl08106 - 186 ug/dL 02/21/2025 9:46 PM [facility]DSUM[facility] RILBBUT187(H)232 - 386 ug/dL02/21/2025 9:46 PM [facility] LABTransferrin Szgwdfythh97.215.0 - 57.0 %02/21/2025 9:46 PM [facility] LABSpecimen (Source)Anatomical Location / LateralityCollection Method / Volume Collection TimeReceived TimeBloodBLOOD SPECIMEN / UnknownVenipuncture / Hmntvqk0402/21/2025 8:51 AM EDT1 8:51 AM EDT Narrative Authorizing ProviderResult TypeResult StatusJaimee John HAT BODY INSPECTOR.CNPLABORATORYFinal ResultPerforming OrganizationAddressCity/State/ZIP CodePhone Number [facility] [address] [address], [place] * (ABNORMAL) IMMUNOGLOBULINS,IGG,IGA,IGM (02/21/2025 8:51 AM EDT)ComponentValue Ref RangeTest MethodAnalysis TimePerformed AtPathologist CvrkhoruaYdC167(L)700 - 1,600 mg/dL02/21/2025 6:21 PM [facility] EQXLfS42827 - 400 mg/dL02/21/2025 6:21 PM [facility] BUPZlO066(H)40 - 230 mg/dL02/21/2025 6:21 PM [facility] LABSpecimen (Source)Anatomical Location / LateralityCollection Method / VolumeCollection TimeReceived TimeBloodBLOOD SPECIMEN / UnknownVenipuncture / Uqfpvui0302/21/2025 8:51 AM EDT1 8:51 AM EDT Narrative Authorizing ProviderResult TypeResult StatusJaimee John HAT BODY INSPECTOR.CNPLABORATORYFinal ResultPerforming OrganizationAddressty/State/ZIP CodePhone Number [facility] [address] [address], [place] * FOLATE, SERUM (02/21/2025 8:51 AM EDT)ComponentValueRef RangeTest Method Analysis TimePerformed AtPathologist SignatureFolate>20.0>4.7 ng/mL02/21/2025 10:05 PM [facility] LABComment: A result of > 20 ng/mL is not necessarily indicative of a pathologic or treatable condition: it reflects a limitation of the test methodology. Assay reference range: 4.8 to 24.2 ng/mL. Suitable for detection of folate deficiency. Reference: Folate III (Folate III) [package insert V 1.0 Latvian]. [employer], [place], [place]: March 2015. Specimen (Source)Anatomical Location / LateralityCollection Method / Volume Collection TimeReceived TimeBloodBLOOD SPECIMEN / UnknownVenipuncture / Unknown 02/21/2025 8:51 AM EDT1 8:51 AM EDT Narrative Authorizing ProviderResult TypeResult StatusJaimee John HAT BODY INSPECTOR.CNPLABORATORYFinal ResultPerforming OrganizationAddressCity/State/ZIP CodePhone Number [facility] [address] [place] [address], * FERRITIN (02/21/2025 8:51 AM EDT)ComponentValueRef RangeTest MethodAnalysis TimePerformed AtPathologist LyfoqhocqWhscdmot42.614.7 - 205.1 ng/mL02/21/2025 10:05 PM [facility] LABSpecimen (Source)Anatomical Location / LateralityCollection Method / VolumeCollection TimeReceived Time BloodBLOOD SPECIMEN / UnknownVenipuncture / Jdwdarz2302/21/2025 8:51 AM EDT 02/21/2025 8:51 AM EDT Narrative Authorizing ProviderResult TypeResult StatusJaimee John HAT BODY INSPECTOR.CNPLABORATORYFinal ResultPerforming OrganizationAddressCity/State/ZIP CodePhone Number [facility] [address] [place] [address], * (ABNORMAL) COMPREHENSIVE METABOLIC PANEL (02/21/2025 8:51 AM EDT) Only the most recent of2 resultswithin the time period is included. ComponentValueRef RangeTest MethodAnalysis TimePerformed AtPathologist Signature Protein, Total7.66.3 - 8.0 g/dL02/21/2025 9:45 AM EDCAM[facility] LABAlbumin4.33.9 - 4.9 g/dL02/21/2025 9:45 AM [facility] LABCalcium, Total10.28.5 - 10.2 mg/dL02/21/2025 9:45 AM EDT [facility] LABBilirubin, Total0.30.2 - 1.3 mg/dL 02/21/2025 9:45 AM [facility] LABAlkaline Phosphatase 8334 - 123 U/L1 9:45 AM EDCAM[facility] XYWWKM0314 - 35 U/L1 9:45 AM [facility] QZHHGA51(H)7 - 38 U/L1 9:45 AM [facility] VWWZhmoake936(H)74 - 99 mg/dL02/21/2025 9:45 AM [facility] LABComment: The [place] Diabetes Association (ADA) provides guidance for cutoff values for fasting glucose andrandom glucose. The ADA defines fasting as no [...] [place] Diabetes Association. Diabetes Care. 2016.39(Suppl 1). ERY411 - 21 mg/dL02/21/2025 9:45 AM [facility] Creatinine0.49(L)0.58 - 0.96 mg/dL02/21/2025 9:45 AM EDTNORTHARBOR [facility] IMMWtuxwx040766 - 144 mmol/L1 9:45 AM EDTNORTHARBOR [facility]ACH [facility] LABPotassium4.13.7 - 5.1 mmol/L1 9:[address] [facility] YJMZypbpkoy08037 - 107 mmol/L1 9:45 AM EDTNORTHARBOR [facility]ACH [facility] SLVLQ873(L)22 - 30 mmol/L1 9:45 AM EDTNORTHARBOR [facility] LABAnion Gap17(H)8 - 15 mmol/L1 9:45 AM EDTNOBRAXTON COUNTY MEMORIAL [facility] LABEstimated Glomerular Filtration Fjzh034>=60 mL/min/1.73m 02/21/2025 9:45 AM [facility] LABComment:Estimated Glomerular Filtration Rate (eGFR) is calculated using the 2020 CKD-EPI creatinine equation. This equation utilizes serum creatinine, sex, and age as parameters. The creatinine assay has traceable calibration to isotope dilution- mass spectrometry. Refer to KDIGO guidelines for clinical interpretation. In patients with unstable renal function, e.g. those with acute kidney injury, the eGFRmay not accurately reflect actual GFR.Specimen (Source)Anatomical Location / LateralityCollection Method / VolumeCollection TimeReceived TimeBloodBLOOD SPECIMEN / UnknownVenipuncture / Bhvwuqs1002/21/2025 8:51 AM EDT1 8:51 AM EDT Narrative Authorizing ProviderResult TypeResult StatusJaimedane Lopez APRN.CNPLABORATORYFinal ResultPerforming OrganizationAddressCity/State/ZIP CodePhone Number [facility] [address] [place] [address] * (ABNORMAL) COMPLETE BLOOD COUNT AND DIFFERENTIAL (02/21/2025 8:51 AM EDT) ComponentValueRef RangeTest MethodAnalysis TimePerformed AtPathologist UbjqyrzrjXNP60.16(H)3.70 - 11.00 k/uL02/21/2025 8:59 AM EDTNORTHARBOR BEACH [facility] LABRBC4.773.90 - 5.20 m/uL02/21/2025 8:59 AM EDTNOBRAXTON COUNTY [facility] EWKJuifdvokoc41.111.5 - 15.5 g/dL02/21/2025 8:[address] [facility] LGMGjrdbwznsp69.036.0 - 46.0 %02/21/2025 8:59 AM EDCAM[facility] TSCMVP99.480.0 - 100.0 fL 02/21/2025 8:59 AM EDTNOBRAXTON COUNTY [facility] NVUEDF07.726.0 - 34.0 pg02/21/2025 8:59 AM EDNOBRAXTON COUNTY [facility] KPITNEQ66.830.5 - 36.0 g/dL02/21/2025 8:59 AM EDCAM[facility] LABRDW-CV14.3 11.5 - 15.0 %02/21/2025 8:59 AM EDCAM[facility] LAB Platelet Kdfes360649 - 400 k/uL02/21/2025 8:59 AM EDCAM[facility] LABMPV9.99.0 - 12.7 fL02/21/2025 8:59 AM EDCAM[facility] LABNeutrophils %75.5%02/21/2025 8:59 AM EDCAMDEN [facility] LABAbs Neut9.94(H)1.45 - 7.50 k/uL02/21/2025 8:[address] [facility] LABLymphocytes %14.4%02/21/2025 8:[address] [facility] LABAbs Lymph1.891.00 - 4.00 k/uL02/21/2025 8:59 AM EDCAM[facility] LABMonocytes %7.0%02/21/2025 8:59 AM EDCAM[facility] LABAbs Mono0.92(H)<0.87 k/uL02/21/2025 8:59 AM EDTST. [facility] LABEosinophils %0.8%02/21/2025 8:59 AM EDTST. [facility]ANCIS [facility] LABAbs Eosin0.11<0.46 k/uL 02/21/2025 8:59 AM EDTNOBRAXTON COUNTY [facility] LABBasophils %0.7% 02/21/2025 8:59 AM EDTNOBRAXTON COUNTY MEMOR[facility] LABAbs Baso0.09<0.11 k/uL02/21/2025 8:59 AM [facility] LABImmature Granulocytes %1.6%02/21/2025 8:[facility] Abs Immature Gran0.21(H)<0.10 k/uL02/21/2025 8:59 AM [facility] LABNRBC0.0/100 WBC02/21/2025 8:59 AM ED[facility] LABAbsolute nRBC<0.01<0.01 k/uL02/21/2025 8:59 AM EDCAM[facility] LABDiff [place]/01/2025 8:59 AM [facility] LABSpecimen (Source)Anatomical Location / Laterality Collection Method / VolumeCollection TimeReceived TimeBloodBLOOD SPECIMEN / UnknownVenipuncture / Qkeoayi3702/21/2025 8:51 AM EDT1 8:51 AM EDT Narrative Authorizing ProviderResult TypeResult StatusJaimee John HAT BODY INSPECTOR.CNPLABORATORYFinal ResultPerforming OrganizationAddressCity/State/ZIP CodePhone Number [facility] [address] [place] [address] * BLOOD TB SCREEN (01/11/2025 1:48 PM EDT)ComponentValueRef RangeTest Method Analysis TimePerformed AtPathologist SignatureTB Nil0.03<=8.00 IU/mL01/13/2025 9:22 PM [facility]TCSCC[facility] LABTB1 Ag minus Nil0.01<0.35 IU/mL 01/13/2025 9:22 PM [facility] LABTB2 Ag minus Nil0.01 <0.35 IU/mL01/13/2025 9:22 PM [facility] LABTB Result Svlscvua88/23/2025 9:22 PM [facility] LABMitogen minus Nil>9.97>=0.50 IU/mL01/13/2025 9:22 PM [facility] LABTB Gamma InterpretationInfection with M. tuberculosis complex is unlikely. If latent tuberculosis infection is highly suspected, a negative result does not rule out the infection. Specimens from immunocompromised patients and those <5 years of age may show false negative results. In case of a contact investigation, please repeat 8-12 weeks after a known exposure.01/13/2025 9:22 PM [facility] LABSpecimen (Source)Anatomical Location / LateralityCollection Method / VolumeCollection TimeReceived TimeBloodBLOOD SPECIMEN / UnknownVenipuncture / Jtdutxc0401/11/2025 1:48 PM EDT01/11/2025 2:06 PM EDT Narrative Authorizing ProviderResult TypeResult StatusSandra Park MDLABORATORYFinal ResultPerforming OrganizationAddressCity/State/ZIP CodePhone Number [facility] [address] * VITAMIN D 25 HYDROXY (01/11/2025 1:48 PM EDT)ComponentValueRef RangeTest MethodAnalysis TimePerformed AtPathologist SignatureVitamin D 25 Rbmhuzy67.2 31.0 - 80.0 ng/mL01/12/2025 1:27 PM [facility] Specimen (Source)Anatomical Location / LateralityCollection Method / Volume Collection TimeReceived TimeBloodBLOOD SPECIMEN / UnknownVenipuncture / Vdlqyoi1901/11/2025 1:48 PM EDT01/11/2025 2:06 PM EDT Narrative Authorizing ProviderResult TypeResult StatusSandra Park MDLABORATORYFinal ResultPerforming OrganizationAddressCity/State/ZIP CodePhone Number [facility] [address] [facility] [address] [address], [place] * (ABNORMAL) SEDIMENTATION RATE, WESTERGREN (01/11/2025 1:48 PM EDT)Component ValueRef RangeTest MethodAnalysis TimePerformed AtPathologist SignatureSed Rate, Tfpwqgmrrg15(H)0 - 20 mm/hr01/12/2025 1:02 AM [facility] LABSpecimen (Source)Anatomical Location / LateralityCollection Method / VolumeCollection TimeReceived TimeBloodBLOOD SPECIMEN / UnknownVenipuncture / Ahokfua8001/11/2025 1:48 PM EDT01/11/2025 2:06 PM EDT Narrative Authorizing ProviderResult TypeResult StatusSandra Park MDLABORATORYFinal ResultPerforming OrganizationAddressCity/State/ZIP CodePhone Number [facility] [address] [address], [place] * HEPATITIS B SURFACE ANTIGEN (01/11/2025 1:48 PM EDT)ComponentValueRef Range Test MethodAnalysis TimePerformed AtPathologist SignatureHBsAgNegativeNegative 01/12/2025 11:45 AM [facility]DS[facility] LABSpecimen (Source) Anatomical Location / LateralityCollection Method / VolumeCollection Time Received TimeBloodBLOOD SPECIMEN / UnknownVenipuncture / Rodtmky7401/11/2025 1:48 PM EDT01/11/2025 2:06 PM EDT Narrative Authorizing ProviderResult TypeResult StatusSandra FROSTORATORYFinal ResultPerforming OrganizationAddressty/State/ZIP CodePhone Number [facility] [address] [address], [place] * HEPATITIS B SURFACE ANTIBODY (01/11/2025 1:48 PM EDT)ComponentValueRef Range Test MethodAnalysis TimePerformed AtPathologist SignatureHep B Surface Ab, IkzdUsjvxueq86/22/2025 11:44 AM [facility] LABComment: Consistent with serological evidence of immunity to Hepatitis B Virus.Hep B Surface Ab Fxsif662.77mIU/mL01/12/2025 11:44 AM [facility] LABComment: <8 mIU/mL: No serological evidence of immunity to Hepatitis B Virus. >/= 8 to <12 mIU/mL: No serological evidence of immunity to Hepatitis B Virus. >/= 12 mIU/mL: Consistent with serological evidence of immunity to Hepatitis B Virus. Specimen (Source)Anatomical Location / LateralityCollection Method / Volume Collection TimeReceived TimeBloodBLOOD SPECIMEN / UnknownVenipuncture / Unknown 01/11/2025 1:48 PM EDT01/11/2025 2:06 PM EDT Narrative Authorizing ProviderResult TypeResult StatusSandra Park MDLABORATORYFinal ResultPerforming OrganizationAddressCity/State/ZIP CodePhone Number [facility] [place] [address], * HEPATITIS B CORE ANTIBODY TOTAL (01/11/2025 1:48 PM EDT)ComponentValueRef RangeTest MethodAnalysis TimePerformed AtPathologist SignatureHepatitis B Core Ab, FzdeuLcamthhqAswanlal44/22/2025 11:47 AM [facility] LABComment:No evidence of current or past infection with Hepatitis B virus. Should recent infection be suspected, repeat testing may be considered 3-4 weeks after this draw.Specimen (Source)Anatomical Location / Laterality Collection Method / VolumeCollection TimeReceived TimeBloodBLOOD SPECIMEN / UnknownVenipuncture / Fremqzu8401/11/2025 1:48 PM EDT01/11/2025 2:06 PM EDT Narrative Authorizing ProviderResult TypeResult Beverly FROSTORATORYFinal ResultPerforming OrganizationAddressCity/State/ZIP CodePhone Number [facility] [address] [place] [phone], * (ABNORMAL) COMPLETE BLOOD COUNT (01/11/2025 1:48 PM EDT)ComponentValueRef RangeTest MethodAnalysis TimePerformed AtPathologist ToyypvisoHIX28.61(H)3.70 - 11.00 k/uL01/11/2025 2:10 PM EDTNORTHCO[facility] LABRBC4.29 3.90 - 5.20 m/uL01/11/2025 2:10 PM EDTNORTHARB[facility] Ceblfqascq20.811.5 - 15.5 g/dL01/11/2025 2:10 PM EDTST[facility] OBCXdsgxjvszb52.536.0 - 46.0 %01/11/2025 2:10 PM EDTST. [facility] IYBZGX38.780.0 - 100.0 fL01/11/2025 2:10 PM EDTST. [facility] PKNRGF84.226.0 - 34.0 pg01/11/2025 2:[address] [facility] RVRTCMQ80.330.5 - 36.0 g/dL01/11/2025 2:10 PM EDTST. FRANCIS H[facility] LABRDW-CV14.511.5 - 15.0 %01/11/2025 2:10 PM ED[facility] LABPlatelet Htmmk343515 - 400 k/uL01/11/2025 2:10 PM EDCAM[facility] GRKVTJ61.69.0 - 12.7 fL01/11/2025 2:10 PM EDCAMDEN [facility] LABAbsolute nRBC<0.01<0.01 k/uL01/11/2025 2:10 PM EDCAMDEN [facility] LAB Specimen (Source)Anatomical Location / LateralityCollection Method / Volume Collection TimeReceived TimeBloodBLOOD SPECIMEN / UnknownVenipuncture / Jpomatm4801/11/2025 1:48 PM EDT01/11/2025 2:06 PM EDT Narrative Authorizing ProviderResult TypeResult StatusMarjose a Park MDLABORATORYFinal ResultPerforming OrganizationAddressCity/State/ZIP CodePhone Number [facility] [address] [place] [address] * C-REACTIVE PROTEIN (01/11/2025 1:48 PM EDT)ComponentValueRef RangeTest Method Analysis TimePerformed AtPathologist SignatureCRP<0.3<0.9 mg/dL01/12/2025 3:28 AM [facility] LABSpecimen (Source)Anatomical Location / LateralityCollection Method / VolumeCollection TimeReceived TimeBloodBLOOD SPECIMEN / UnknownVenipuncture / Dhevcib8901/11/2025 1:48 PM EDT01/11/2025 2:06 PM EDT Narrative Authorizing ProviderResult TypeResult StatusJulissacliffemmanuel Park LABORATORYFinal ResultPerforming OrganizationAddressCity/State/ZIP CodePhone Number [facility] [address] [place] [address], * HEPATITIS C ANTIBODY IA WITH CONFIRMATION (01/11/2025 1:48 PM EDT)Component ValueRef RangeTest MethodAnalysis TimePerformed AtPathologist SignatureHep C Antibody OHXdjejklaHcwwwzon77/22/2025 11:34 AM [facility] LABComment:The result suggests no evidence of infection with Hepatitis C virus. Should recent infection be suspected, repeat testing may be considered 4-6 weeks after this draw.Specimen (Source)Anatomical Location / Laterality Collection Method / VolumeCollection TimeReceived TimeBloodBLOOD SPECIMEN / UnknownVenipuncture / Ypsgyif3401/11/2025 1:48 PM EDT01/11/2025 2:06 PM EDT Narrative Authorizing ProviderResult TypeResult StatusJulissacliffemmanuel Frenchgodwin LEELABORATORYFinal ResultPerforming OrganizationAddressCity/State/ZIP CodePhone Number [facility] [address] from Last 3 Months Insurance Care Teams Team MemberRelationshipSpecialtyStart DateEnd Date Manuel Klein MD PCP - GeneralFamily Fuscamcy15/7/22 Manuel Klein MD ReferringFamily Medicine02/12/22 Manuel Klein MD [address] [place] [address] ReferringFamily Medicine07/06/24
--- OUTSIDE RECORDS SUMMARY | 2025-03-14 01:44 | XMS_ITS | Clinical Summary ---
Author Organization [facility] Address [id number] [place] [address] Care Team Providers Care Hand Funnel Coater Name Role Phone Unavailable Primary Care Provider Unavailabl e Allergies Active AllergyReactionsCriticalityNoted QzjkNnbbwilrGwrilawmursCzy26/12/2022 Other Reaction(s): Unknown, Unknown Reaction Other Reaction(s): Unknown Patient states it was a long time ago and she did not have a severe reaction. ??She does not believe she is allergic, she just thinks she just experienced side effects. Other Reaction(s): Unknown Reaction Patient states it was a long time ago and she did not have a severe reaction. ??She does not believe she is allergic, she just thinks she just experienced side effects. Uwvzmeq6205/31/2014 Other Reaction(s): jittmayra, Other: See Comments, Trouble breathing ? 17-JUN-2015 17:55:17<$> Other Reaction(s): Other: See Comments, Trouble breathing ?... Make her feel ??Jittery. ??OTHERWISE, NO SOB/WHEEZING, and NO DYSPHAGIA, NO URTICARIA, NO ANGIOEDEMA Make her feel ??Jittery. ??OTHERWISE, NO SOB/WHEEZING, and NO DYSPHAGIA, NO URTICARIA, NO ANGIOEDEMA DoxycyclineOther (See Comments)Low01/19/2022 Other Reaction(s): Other: See Comments, Unknown Patient states it was a long time ago and she did not have a severe reaction. ??She does not believe she is allergic, she just thinks she just experienced side effects. Sulfamethoxazole-TrimethoprimGI Disturbance,Other (See Comments),SwellingLow 02/24/2016 Other Reaction(s): GI upset Patient states it was a long time ago and she did not have a severe reaction. ??She does not believe she is allergic, she just thinks she just experienced side effects. Other Reaction(s): Other, sick Patient states it was a long time ago and she did not have a severe reaction. ??She does not believe she is allergic, she just thinks she just experienced side effects.Patient states it was a long time ago and she did not have a severe reaction. ??She does not believe she is allergic, she just thinks she just experienced side effects. Patient states it was a long time ago and she did not have a severe reaction. ??She does not believe she is allergic, she just thinks she just experienced side effects. Other Reaction(s): Other, sick??Patient states it was a long time ago and she did not have a severe reaction. ??She does not believe she is allergic, she just thinks she just experienced side effects. ?? Patient states it was a long time ago and she did not have a severe reaction. ??She does not believe she is allergic, she just thinks she just experienced side effects. Medications * This document contains information received from the source organization and may not represent a complete record from that organization. MedicationSigDispense QuantityRefillsLast FilledStart DateEnd DateStatus folic acid (FOLVITE) 1 mg tablet Take 1 tablet (1 mg total) by mouth in the morning.Active pregabalin (LYRICA) 75 mg capsule Take 1 capsule (75 mg total) by mouth as needed.10/20/2023ctive acetaminophen (TYLENOL) 325 mg tablet Take 1 tablet (325 mg total) by mouth every 6 (six) hours as needed.Active diclofenac sodium (VOLTAREN ARTHRITIS PAIN) 1 % gel Apply 2 g topically 4 (four) times a day as needed.02/01/2024ctive ALPRAZolam (XANAX) 0.25 mg tablet Take 1 tablet (0.25 mg total) by mouth nightly as needed for anxiety.06/24/2023 Active aspirin 81 mg chewable tablet Chew 1 tablet (81 mg total) and swallow in the morning.Active IMURAN 50 mg tablet Take 1 tablet (50 mg total) by mouth in the morning.05/24/2023ctive baclofen 5 mg tablet Take 5 mg by mouth as needed.Active belimumab 200 mg/mL auto-injector Inject 200 mg under the skin once a week.10/05/2023ctive clotrimazole (MYCELEX) 10 mg bk Dissolve 1 Bk in the mouth in the morning and 1 Bk at noon and 1 Bk in the evening and 1 Bk before bedtime.04/05/2024ctive cyanocobalamin (VITAMIN B-12) 1,000 mcg/mL injection Inject 1 mL (1,000 mcg total) under the skin every 30 (thirty) days.12/28/2023 Active ergocalciferol (DRISDOL) 1,250 mcg (50,000 unit) capsule Take 1 capsule (50,000 Units total) by mouth once a week.10/20/2023ctive famotidine (PEPCID) 20 mg tablet Take 1 tablet (20 mg total) by mouth 2 (two) times a day as needed.Active fluticasone propionate (FLONASE) 50 mcg/actuation nasal spray Administer 2 sprays into each nostril as needed.Active hydroxychloroquine 400 mg tablet Take 400 mg by mouth in the morning.Active ibuprofen (ADVIL,MOTRIN) 200 mg tablet Take 1 tablet (200 mg total) by mouth every 8 (eight) hours as needed.Active metoprolol tartrate (LOPRESSOR) 50 mg tablet Take 2 tablets (100 mg total) by mouth in the morning and 2 tablets (100 mg total) before bedtime.04/23/2023ctive predniSONE (STERAPRED DS) 10 mg tablet pack Take 1 tablet (10 mg total) by mouth in the morning.Active tacrolimus (PROTOPIC) 0.1 % ointment Apply 1 Application topically as needed.08/16/2023ctive tretinoin (RETIN-A) 0.05 % cream Apply topically nightly.07/15/2023ctive triamcinolone acetonide (KENALOG) 0.025 % lotion Apply 1 Application topically as needed.Active Active Problems ProblemNoted DateDiagnosed DateLupus ldllgqxjqixtx52/14/2024Sacroiliitis 04/06/2024hronic pain /14/2024aynaud's disease without gangrene 04/06/2024 Assessment & Plan (04/06/2024 10:10 AM EST): We will get lower extremity PVR with cold immersion test. I counseled her on the diagnosis and identifying and avoiding provoking factors. I also counseled her that managing her SLE and autoimmune connective tissue disorders is balderrama for managing her Raynaud's. All her questions were answered. Degenerative disc disease, xqotfz4511/08/2023urrent xzvzrr7707/06/2023 Overview (04/06/2024): Added secondary to documentation in Social History. Added secondary to documentation in Social History. Cytomegalovirus phlnvxydp20/13/2024hronic fatigue and nlyxndw91/ Qxnprpmdn35/17/9633Mdfsmsb99/17/2024utonomic caexcmrzewh75/09/2024utoimmune zsuvmtw7906/01/2023Systemic lupus jmepjlfbvtgtx78/03/5518Eqigjcviczrj55/03/2022 Rheumatoid lcoblqfop73/05/2022ilateral leg lugwrqfe78/13/2021 Social History Tobacco UseTypesPacks/DayYears UsedDateSmoking Tobacco: Every DayCigarettes Smokeless Tobacco: Never Tobacco Cessation:Ready to Q uit: Not Asked; Counseling Given: Not Answered ChildcareAnswerDate RrdrivaoFjxmgrereKjztwvp73/12/2019EmploymentAnswerDate LswxhwciPzufchphiwGkjukvq17/12/2019Hunger ScreeningAnswerDate RecordedWithin the past 12 months we worried whether our food would run out before we got money to buy more.Never True04/06/2024Within the past 12 months the food we bought just didn't last and we didn't have money to get more.Never True04/06/2024 CommentsUnknownSex and Gender InformationValueDate RecordedSex Assigned at Not on fileLegal CxnUxsfde79/09/2017 3:06 PM ESTGender IdentityNot on fileSexual OrientationNot on file Last Filed Vital Signs Vital SignReadingTime TakenCommentsBlood Lvuzbvnq493/80106/06/2023 10:00 AM EST Widkx947704/06/2024 10:00 AM PLSRuliluowcdo24.1 ??C (97 ??F)04/06/2024 10:00 AM ESTRespiratory Rate--Oxygen Rjleyhtkbj56%04/06/2024 10:00 AM ESTInhaled Oxygen Concentration--Dkfcgf980.7 kg (275 lb)04/06/2024 10:00 AM CZFKwjwpk992.2 cm (5' 7 )04/06/2024 10:00 AM ESTBody Mass Index43.0704/06/2024 10:00 AM EST Plan of Treatment Health MaintenanceDue DateLast DoneCommentsTobacco Oueteozdxq05/14/1981 Depression Dpfhqicjc39/14/1993Adult BMI Follow Up Plan1998DTaP,Tdap and Td Vaccines (1 - Tdap)10/05/1999COVID-19 Vaccine (6 - 2025-26 season)2025 02/23/2023, 02/08/2022, 05/26/2021, Additional history existsInfluenza Vaccine 01/22/2025dult BMI Oauvhjqpd52Tobacco Jyooveylv46/14/2025 04/06/2024ap Smear Medical Devices Not on file Insurance
--- OUTSIDE RECORDS SUMMARY | 2025-03-14 01:44 | XMS_ITS | Clinical Summary ---
Author Organization [facility] Address [address], [address] [place] [address] Care Team Providers Care Ward Clerk Name Role Phone Gay De La Torre APRN - PRODUCT DEMONSTRATOR Primary Care Provide r Allergies Active AllergyReactionsCriticalityNoted DateComments Sulfamethoxazole-Xfzyepzoyrcn43/17/2021 Medications MedicationSigDispense QuantityRefillsLast FilledStart DateEnd DateStatus famotidine (PEPCID) 20 MG tablet Take 20 mg by mouth 2 times dailyActive omeprazole (PRILOSEC) 20 MG delayed release capsule Take 40 mg by mouth dailyActive cetirizine (ZYRTEC ALLERGY) 10 MG tablet Take 10 mg by mouth dailyActive acetaminophen (TYLENOL) 500 MG tablet Take 1,000 mg by mouth every 4 hours as needed for PainActive ibuprofen (ADVIL;MOTRIN) 200 MG tablet Take 200 mg by mouth every 6 hours as needed for PainActive aspirin 81 MG chewable tablet Take 81 mg by mouth dailyActive nitroGLYCERIN (NITROSTAT) 0.[address] 1 tablet under the tongue every 5 minutes as needed for Chest pain up to max of 3 total doses. If no relief after 1 dose, call 911. 25 tablet ctive hydroxychloroquine (PLAQUENIL) 200 MG tablet Take 1 tablet by mouth daily04/02/2021ctive metoprolol tartrate (LOPRESSOR) 25 MG tablet Take 25 mg by mouth 2 times daily07/29/2020ctive Active Problems ProblemNoted DateDiagnosed DateRheumatoid kmsgzjxec54/05/2022 Social History Tobacco UseTypesPacks/DayYears UsedDateSmoking Tobacco: Every DaySmokeless Tobacco: NeverAlcohol UseStandard Drinks/WeekCommentsNever0 (1 standard drink = 0.6 oz pure alcohol)CommentsUnknownSex and Gender InformationValueDate RecordedSex Assigned at BirthNot on fileLegal EkyXqhcms28/11/2013 11:20 PM EST Gender IdentityNot on fileSexual OrientationNot on file Last Filed Vital Signs Vital SignReadingTime TakenCommentsBlood Tktkjzig029/6501 2:38 PM EST Untth217106/03/2021 2:38 PM YGSLjtqtiatiwh63 ??C (98.6 ??F)06/03/2021 2:38 PM EST Respiratory Maeg354810/07/2020 10:45 AM EDTOxygen Cywzeflogw64%10/07/2020 12:45 PM EDTInhaled Oxygen Concentration--Gkxmzw986 kg (231 lb 7.2 oz)06/03/2021 2:38 PM RIUFitnrt642.2 cm (5' 7 )10/07/2020 9:01 AM EDTBody Mass Index36.25010/07/2020 9:01 AM EDT Plan of Treatment Not on file Insurance Advance Directives * Full Code (Latest Code Status on File) Date ActivatedDate InactivatedComments10/07/2020 8:32 AM10/08/2020 2:43 AM Care Teams Team MemberRelationshipSpecialtyStart DateEnd Date Gay De La Torre, [employer] - PRODUCT DEMONSTRATOR [address] [place] [address] [facility] - General06/03/21
--- OUTSIDE RECORDS SUMMARY | 2025-03-14 01:44 | XMS_ITS | Encounter Summary ---
Author Organization [facility] Address [address] [facility] [place] [address] Care Team Providers Care Ventilated Rib Fitter Name Role Phone Gay De La Torre MD Unavailable [phone] Encounter Details DateTypeDepartmentCare Team (Latest Contact Info)Mubuqkerdgj46/08/2025Travel Social History Tobacco UseTypesPacks/DayYears UsedDateSmoking Tobacco: Every FqtCqfkfpiuqr905.8 Started: 05/24/1995Smokeless Tobacco: Never Comments:Current smoker, carlos ryday, 11-20 cigarettes/day Alcohol UseStandard Drinks/WeekCommentsNever0 (1 standard drink = 0.6 oz pure alcohol)Caffeine intake : > 4 cups per dayCommentsNoSex and Gender InformationValueDate RecordedSex Assigned at BirthNot on fileLegal SexFemale 08/05/2022 7:18 PM EDTGender IdentityNot on fileSexual OrientationNot on file documented as of this encounter Plan of Treatment DateTypeDech[facility] centerCare Team (Latest Contact Info)Zfkuvbcxpnt62/27/2025 10:20 AM EDTOffice Visit [facility] [address] [facility] [address] [place] [address] Mary Grace Mejias MD [address] [facility] [address] [place] [address] 03/23/2025 11:30 AM EDTOffice Visit [facility] [address] [facility] [address] [place] [address] Terence Blum MD [address] [facility] [address] [place] [address] 07/25/2025 11:00 AM ESTOffice Visit [facility] [address] [place] [phone] Cynthia English MD [address] [place] [address] documented as of this encounter Visit Diagnoses Not on filedocumented in this encounter Care Teams Team MemberRelationshipSpecialtyStart DateEnd Gay De La Torre MD [address] [place], [place] [phone] Referring PhysicianFamily Medicine07/18/24documented as of this encounter
--- OUTSIDE RECORDS SUMMARY | 2025-03-14 01:44 | XMS_ITS | Clinical Summary ---
Author Organization [facility] Address [address] [place] [address] Care Team Providers Care Learning Program Manager Name Role Phone Gay De La Torre CNP Primary Care Provider [phone] Allergies Active AllergyReactionsCriticalityNoted RovwSwaotqdjZsrdgvypfwNmlqi82/16/2024 NrljqgsgekubTnabl30/16/6243UdlbrkwdyijlvdvpZquuz65/08/2015 Other Reaction(s): gi Other Reaction(s): lymph swelling CAUSED ENLARGED LYMPH NODES Sulfamethoxazole-TrimethoprimOther,GI intolerance,GailijpkKfe24/03/2016 Patient states it was a long time ago and she did not have a severe reaction. ??She does not believe she is allergic, she just thinks she just experienced side effects. Other Reaction(s): Other, sick Patient states it was a long time ago and she did not have a severereaction. ??She does not believe she is allergic, she just thinks she just experienced side effects. Patient states it was a long time ago and she did not have a severe reaction. ??She does not believe she is allergic, she just thinks she just experienced side effects. Medications MedicationSigDispense QuantityRefillsLast FilledStart DateEnd DateStatus metoprolol tartrate (Lopressor) 50 mg tablet Take 100 mg by mouth two times daily.05/25/2022ctive predniSONE (Deltasone) 10 mg tablet Take 10 mg by mouth in the morning.Active hydroxychloroquine 400 mg tablet 1 (one) time each day at the same time.Active belimumab 200 mg/mL auto-injector Inject 200mg (1 pen) subcutaneously once vdqqqm2502/04/2023ctive Active Problems ProblemNoted DateDiagnosed EkujCcreorcn86/15/2024uct ectasia of breast 03/07/2024GERD (gastroesophageal reflux disease)03/07/2024Insulin resistance 03/07/2024Lumbosacral ovlpyjmdwyb36/15/2024bdominal zpilvgpe77/15/2024. difficile /15/2024Facet arthritis of lumbar dasxiw0412/15/2023ischarge from bisrzy7111/15/2023Irregular periods/menstrual drlfxj0411/15/2023egenerative disc disease, dilwza1511/08/2023History of vitamin D gezuvifgbp72/14/2024Hoarse 08/10/2023ure hypercholesterolemia, skxfguqzvpb26/19/2024Thyroid nodule 08/10/2023AC (premature atrial contraction)07/13/2023aroxysmal supraventricular hfzfavlrqot76/20/2024Shortness of oocxmf6007/13/2023ervical tuwbppawtyzqq94/13/2024hronic oqczwiqkqmlbocutfj88/13/2024urrent smoker 07/06/2023 Overview (03/07/2024): Added secondary to documentation in Social History. Added secondary to documentation in Social History. Cytomegalovirus avqrepgbc87/13/2024isturbance of skin wwoqrheqx29/13/2024 Enthesopathy of hip equtjd4907/06/2023LPRD (laryngopharyngeal reflux disease) 07/06/2023Lumbosacral radiculopathy at L507/06/20231985Qrtgose01/13/2024Oral lesion 07/06/2023ain, hip07/06/2023hronic fatigue and jibdvsd3306/10/2023nxiety 06/09/20231744Wcxblyybg06/17/2024epression, /17/2024Essential vpumjcjoavqh60/17/2024utonomic dtiywvshngl01/09/2926Dqzkfsvxh31/09/2024 Xlwxicvebnr63/09/2024ilateral wrist pain02/04/2023Long term current use of systemic toxznsej50/14/2023Raynaud's disease without hnvyngxa76/14/2023Steroid- induced /14/2023Excessive and frequent menstruation with irregular cycle09/24/2022Obesity, Class III, BMI 40-49.9 (morbid obesity)09/07/2022NA /23/2023Long-term use of high-risk exihshjvfm23/23/2023Obstructive sleep apnea /28/2022omnolence, ashpwhi3505/20/2022nemia, unspecified 03/11/2022Megaloblastic anemia due to vitamin B12 bsohtanfss75/12/2022iscoid lupus vxkxuqcefgdwx11/24/2022Vitamin D lcsdywbqjq75/14/2021ilateral leg jkisdljp83/13/2021hronic pain of toes of both feet03/05/2021levated sed rate 03/05/2021Family history of Crohn's penlutz2903/05/2021Hair loss03/05/2021ong- term use of Ronkxerwd57/13/2021Rash and nonspecific skin /13/2021 Secondary osteoarthritis of multiple sites03/05/2021welling of lymph nodes 03/05/20217305Rrmtip97/08/2015Chronic bilateral low back pain with bilateral ydccamic53/08/1191Dtgvuxrkyspslj86/08/2015Vitamin B12 fnvvnwpqjo13/08/2015 Family History Medical HistoryRelationNameCommentsHeart attackMaternal GrandfatherHeart failure Maternal GrandmotherRelationNameStatusCommentsMaternal GrandfatherMaternal Grandmother Social History Tobacco UseTypesPacks/DayYears UsedDateSmoking Tobacco: Every DayCigarettes Smokeless Tobacco: NeverAlcohol UseStandard Drinks/WeekCommentsNot Currently0 (1 standard drink = 0.6 oz pure alcohol)UT Safety & EnvironmentAnswerDate Recorded Fear of Current or Ex-PartnerNot on file07/15/2023Emotionally AbusedNot on file 07/15/2023hysically AbusedNot on file07/15/2023Sexually AbusedNot on file 07/15/2023hysically or Sexually AbusedNot on file07/15/2023Comments UnknownSex and Gender InformationValueDate RecordedSex Assigned at BirthNot on fileLegal CfnWsiizm46/30/2022 8:07 PM ESTGender IdentityNot on fileSexual OrientationNot on file Last Filed Vital Signs Vital SignReadingTime TakenCommentsBlood Xckygygt259/8210/ 10:12 AM EDT Cebwx579003/08/2024 10:12 AM EDTTemperature--Respiratory Rate--Oxygen Saturation 98%03/08/2024 10:00 AM EDTInhaled Oxygen Concentration--Alsicx013 kg (275 lb) 03/08/2024 10:00 AM SEPVgmsoa466.2 cm (5' 7 )03/08/2024 10:00 AM EDTBody Mass Index43.0703/08/2024 10:00 AM EDT Plan of Treatment Health MaintenanceDue DateLast DoneCommentsDepression Aqdbptvvp08/14/1993 Varicella Vaccines (1 of 2 - 13+ 2-dose series)1993Hepatitis B Vaccines (1 of 3 - 19+ 3-dose series)10/05/1999Pneumococcal Vaccine: Pediatrics (0 to 5 Years) and At-Risk Patients (6 to 64 Years) (1 of 2 - PCV)10/05/1999Adult Vswwhtr1510/04/2002HPV/Jzotdy0810/04/2010Cervical Cancer Vptdoguag00/12/2011Pap Smear05/04/2684Xavebdqwo77/14/2021COVID-19 Vaccine ( season), 02/08/2022, 05/26/2021, Additional history exists Influenza Vaccine (#1)2025Zoster Vaccines (1 of 2)2030HIB Vaccines Aged OutNo longer eligible based on patient's age to complete this topicHPV VaccinesAged OutNo longer eligible based on patient's age to complete this topic IPV VaccinesAged OutNo longer eligible based on patient's age to complete this topicMeningococcal B VaccineAged OutNo longer eligible based on patient's age to complete this topicMeningococcal VaccineAged OutNo longer eligible based on patient's age to complete this topicRotavirus VaccinesAged OutNo longer eligible based on patient's age to complete this topic Insurance Care Teams Team MemberRelationshipSpecialtyStart DateEnd Gay De La Torre CNP [facility] [facility], [place] [address] PCP - GeneralFamily Ghqajbvu08/9/24
--- OUTSIDE RECORDS SUMMARY | 2025-03-14 01:44 | XMS_ITS | Continuity of Care Document ---
Author Organization [facility] Address [address] [place] [address] Phone Care Team Providers Care Liquor Bridge Operator Name Role Phone Gay De La Torre NP-C Primary Care Provider Bandar Protillo APRN Attending Provider [phone] Margie Arnett NP Attending Provider Adolfo Kang MD Attending Provider Adolfo Kang MD Other Provider Mathew Ji MD Attending Provider Terence Blum MD Attending Provider Jose Perez DO Attending Provider Care Teams Visit Care Team Team Status: Inactive Member Role Status Dates Gay De La Torre NP-C Primary Care Provider Active Start: December 12, 2024 End: December 12, 2024Luiz Gee ProviderActiveStart: December 12, 2024 End: December 12, 2024 Visit Care Team Team Status: Inactive Member Role Status Dates Gay De La Torre ROLL ICER-C Primary Care Provider Active Start: January 17, 2025 End: January 17, 2025Pefrank Arnett NPAttending ProviderActiveStart: January 17, 2025 End: January 17, 2025 Visit Care Team Team Status: Active Member Role Status Dates Gay De La Torre ROLL ICER-C Primary Care Provider Active Start: January 31, 2025 Bill Pickeringending ProviderActiveStart: January 31, 2025 Adolfo Kang MDOther ProviderActiveStart: January 31, 2025 Visit Care Team Team Status: Inactive Member Role Status Dates Gay De La Torre ROLL ICER-C Primary Care Provider Active Start: February 14, [...] February 28, 2025Pafrancesco De La Torre , ROLL ICER-CPrimary Care ProviderActiveStart: February 28, 2025 End: February 28, 2025 Visit Care Team Team Status: Inactive Member Role Status Dates Terence Blum MD Attending Provider Active Sta rt: March 02, 2025 End: March 02, 2025Pafrancesco De La Torre , ROLL ICER-CPrimary Care ProviderActiveStart: March 02, 2025 End: March [...] Referral Date Requested Appointment Date Referral Reason Adlofo Kang [address] [address]Isot Phone: call Dr. Donaldson office to schedule a follow [...] stomach Unknown DeceasedUnknownmotherCrohn's diseaseUnknown Problems Active Problems Medical Problem Onset Date [...] Date Stop Date End Date Instructions Adherence Pantoprazole 20 mg tablet,delayed release (DR/EC) Discontinued 2 0 MG PO Daily July 19, 2024 1:00amJun2024 11:24amPantoprazole 20 mg tablet,delayed release (DR/EC)Afklnv11UUKRLkyou dailyJun2024 11:24am UnknownAcetaminophen (Acetaminophen Extra Strength) 500 mg pxadknEshxsj8486WIWK Every 6 hours as needed for painSeptember 2024 12:00amUnknownIbuprofen 400 mg ahlhikNzfgah114RNTG0-9 TIMES PER DAY as needed for painSeptember 2024 12:00amUnknownAlprazolam 0.25 mg tabletDiscontinued0.25MGPODaily as needed for anxietyMa2023 12:00amMah 2024 4:04pmBelimumab (Benlysta) 200 mg/mL auto-rsldsrgbBptleewoukxy537JRSLQCTHsnvqh weekMa2023 12:00amJune 2024 11:23amClobetasol 0.05 % raktjxeJchmvz6GUUDPQXVDQIZHAb DirectedMay 2023 12:00amUnknownFluocinonide 0.05 % buiqcsjxSomdtc1LYJXMANDIJMXZMvlcq as needed for rashMay 2023 12:00amUnknownHydroxychloroquine 200 mg tablet Nzxlnm272VAEILjcarNes 29th, 2024 12:00amUnknownAzathioprine 50 mg tablet Nzeelmzpygyd67PQNKQfejm times dailyMay 2023 12:00amJune 2024 11:22am Pravastatin 20 mg ngdbrmTxhvufocaznq45WIZKVqlciLiz 2023 12:00amMay 2023 1:08pmPrednisone 10 mg arewdgJlhjwq90BHANPuapnPxa 2023 12:00amUnknown Pregabalin 75 mg preplitTtlxbv440BLQINgehh as needed for nerve painy 2023 12:00amUnknownErgocalciferol (Vitamin D2) 1,250 mcg (50,000 unit) capsule Trzgbpxapmsm48955IXITXKzcnjy weekMay 2023 12:00amJune 2024 11:24am Metoprolol Tartrate 50 mg cdzaucEymwcu058KJEJUpnkcDmv 2023 12:00amUnknown Fidaxomicin (Dificid) 200 mg bfhkqxPsrjwsgfrvsh347LUYZ.every other dayMa2023 12:00amJuly 2023 2:11pmFidaxomicin (Dificid) 200 mg tablet Ljddzsakmqiv213SXVNBsfcu 12 pftid9423PlfOctober 20, 2023 12:00amJuly 2023 2:11pmErgocalciferol (Vitamin D2) 1,250 mcg (50,000 unit) xutjjlhJlqjwk48070WJKX PO3 Times a weekJune 2024 11:23amUnknownGentamicin 0.1 % ointment Buhusazcnvud0UYGWNXLZGNNSAYccni times nunru1675AjacNovember 22, 2023 12:00amJuly 2023 2:12pmbelimumab (Benlysta)ActiveIVevery monthJune 2024 12:00amUnknown Cephalexin 500 mg dkceezyLaxeia534CDFQOoahg times dailyOctober 2024 12:00am UnknownDicyclomine 10 mg snohgngStkrztlgvoaw49QKQSZsqnz daily as needed for abdominal hdza3649Vdg 2023 12:00amMay 2023 1:07pmTake 1 capsule orally twice a day prnPantoprazole 40 mg tablet,delayed release (DR/EC) Hztwxraykxpd55WGUNHcqkl4242Uax 2023 12:00amMay 2023 1:07pmTake 1 tablet orally once a day.Omeprazole 40 mg capsule,delayed release(DR/EC) Kkpjmrhvpdkq50ZJAUVfhcp3193Ghpzxve 2023 12:00amFebruary 2024 10:52am Clonazepam (Klonopin) 0.5 mg tabletActive0.5MGPODailyMarch 2024 12:00am UnknownNystatin 100,000 unit/mL knsmiwukgjKxnjlixalqwt3AKSTQlojaBiqel 2024 12:00amJuly 2024 10:49amswish and swallowThiamine Hcl (Vitamin B1) 100 mg nquksdEmkmfw688UFUAVmcuxUgxc 2024 12:00amUnknownFolic Acid 1 mg tablet Rzaewp4GMVILgpnjRmnw 2024 12:00amUnknownDuloxetine 20 mg capsule,delayed release(DR/EC)Duliog11RUHNDfsrrEjtt 2024 12:00amUnknowngammagard DiscontinuedIVJuly 2024 12:00amJuly 2024 10:58amgammagardActiveIV EVERY 4 WEEKSJuly 2024 10:58amUnknown Immunizations Immunization Event Date Not Given Reason Dose Number Sample Mounter Lot Number Vaccine Information Statement (VIS) Detail Administration Location COVID-19 mRNA, Comirnaty ([employer]) September 28, 2020 COVID-19 mRNA, Comirnaty ([employer])October 19OVID-19 mRNA, Comirnaty ([employer]) May 26OVID-19 mRNA Bivalent Booster ([employer])February 08, 2022 COVID-19 (PFIZER) [id number] 12Y and olderOctober 2022 Procedures Procedure Date [...] Days February 7:30pm February 28, 2025 11:08am [facility] [id number] [address] [facility] [address]Qhnbtdk CultureCoccyx, AbscessSerratia marcfabianacensOctober 2024 5:17pmOctwilliamson arh hospital 2024 9:14am[facility] [id number] [address] [facility] [address]Pksy StainCoccyx, AbscessOctober 2024 5:17pmOctwilliamson arh hospital 2024 2:17pm[facility] [id number] [address] [facility] [address] Vital Signs Vital Reading Result Reference Range Collection Date/Time Height 67 [in_i] December 12, 2024 10:42qxUrytfq203.72 kgJuly 2024 10:45amHeart Rate63 /min 60-100July 2024 10:45amBP Zenljuyz569 mm[Hg]100-140July 2024 10:45am BP Cbgedinrs73 mm[Hg]60-100July 2024 10:45amBMI (Body Mass Index)44.8 kg/m2July 2024 10:70jzEaqwhc42 [in_i]January 17, 2025 10:38amHeart Rate92 /jyp02-713Rgzrkl 2024 10:38amOxygen saturation by Pulse % 95-100August 2024 10:38amBP Bifgwavn281 mm[Hg]100-140August 2024 10:38amBP Ajurkcrlw36 mm[Hg]60-100August 2024 10:37srWzwocd76 [in_i] January 31, 2025 10:63ceEumfwv330.00 kgSeptember 2024 10:11amHeart Rate86 /cyr21-439Qjpixuxhe 2024 11:40amRespiratory rate18 /amn57-75 January 31, 2025 11:40amOxygen saturation by Pulse pxypjgxn13 %95-100 January 31, 2025 11:40amBP Ozrirjkw813 mm[Hg]100-140September 2024 11:40amBP Lizgfkiqv01 mm[Hg]60-100September 2024 11:03tkHlwmdn24 [in_i] February 14, 2025 9:42amHeart Rate65 /kgt10-833Ooieriuig 2024 9:42am Oxygen saturation by Pulse aeyukybw03 %95-100September 2024 9:42amBP Mbbrqoce706 mm[Hg]100-140September 2024 9:42amBP Wmzxptlrg45 mm[Hg]60-100 February 14, 2025 9:40ayCzoysu21 [in_i]February 28, 2025 1:84pcItlput089.00 kgOctober 2024 1:34pmHeart Rate99 /xeb63-187Ssymmig 2024 1:34pm Respiratory rate18 /vvw52-06Gkizglq 2024 1:34pmOxygen saturation by Pulse fmvkotle17 %95-100October 2024 1:34pmBP Mtjaipzk666 mm[Hg]100-140February 28, 2025 1:34pmBP Kunkvabch80 mm[Hg]60-100October 2024 1:34pmBMI (Body Mass Index)43.8 kg/x6SjbmwnxFebruary 28, 2025 1:02ubGusivt89 [in_i]March 02, 2025 3:93tvBfxhkw072.27 kgOctober 2024 3:06pmBody Zodjxkscsmo16.4 [degF] 97.6-99.0March 02, 2025 3:06pmHeart Rate84 /wam61-337Kafdnor 2024 5:29pmRespiratory rate16 /jiv49-72Vibmusb 10th, 2025 5:29pmOxygen saturation by Pulse dsmgeorv34 %95-100Oct2024 5:29pmBP Vywmzcnr446 mm[Hg]100-140 March 02, 2025 5:29pmBP Htljsdtor86 mm[Hg]60-100October 2024 5:29pm Advance Directives Advance Directive Response Recorded Date/ Time Advance Directives No September 17 019 2:40pm Insurance Providers Guarantor Ariadna Paniagua Address [address] [place] [id number] Info.Home Phone: Payer Policy Id Subscriber's Name Subscriber Id Effectiv e Date Expiration Date [employer] [id number] [place] [id number] Encounters Encounter Location(s) Arrival/Admit Date Discharge/Depart Date Provider(s) Departed Physician/Prov ider Office Visit -[facility] Gastro December 12, 2024 10:42am December 12, 2024 11:13am Lynne Childers ELECTRIC TRUCK CRANE OPERATOR Departed Physician/Prov ider Office Visit -[facility] Pain [facility] January 17, 2025 10:29am January 17, 2025 11:04am Margie Arnett NP Non-patient / Non-visit -[facility] Pain M gmt January 31, 2025 10:00am BRITTANI Pickeringeparted Physician/Provider Office Visit-[facility] Pain MgmtSeptember 2024 9:23amSeptember 2024 10:07amPemmett Arnett NP [facility] 7:30pmOctober 2024 7:31pmDaryl Anahi Ji MDDeparted Physician/Provider Office Visit- [facility] GastroOctober 2024 1:29pmOctober 2024 2:17pmLynne Childers APRNDeparted Surgical Day Care-[facility]Oct[facility] 2:46pmOctober 2024 5:35pmTerence Blum V MDDeparted Referred- [facility] 4:14pmOctober 2024 4:15pm Saúl Mary DO Recent Diagnosis Onset [...] Unknown January 17 10:29am Lumbosacral spondylosis Unknown Septembe r 2024 9:23am Mid back pain Unknown February [...] burning sensation in left uppe r quadrant acuteJuly 2024 10:42amAbdominal massacuteJuly 2024 10:42amAbdominal painacuteJuly 2024 10:42amBloatingacuteJuly 2024 10:42amConstipation acuteJuly 2024 10:42amDyspepsiaacuteJuly 2024 10:42amLumbosacral spondylosisacuteAugust 2024 10:29amOther chronic painacuteAugust 2024 10:29amSacroiliitisacuteAugust 2024 10:29amLumbosacral spondylosis acuteSeptember 2024 9:23amMid back painacuteSeptember 2024 9:23am Other chronic painacuteSeptember 2024 9:23amSacroiliitisacuteSeptember 2024 9:23amAbdominal pressureacuteOctober 2024 1:29pmDyspepsiaacute February 28, 2025 1:29pmFatty liveracuteOctober 2024 1:29pmGERD (gastroesophageal reflux disease)acuteOctober 2024 1:29pm Plan of Treatment Author Bandar Portillo [facility] HospitalAuthoredOctober 2024 4:36pmA 44-year-old female patient with diagnosis of GERD, dyspepsia, abdominal pressure and MASH Continue Protonix 40 mg twice daily as patient dyspeptic complaints including epigastric pain and heartburn have been resolved. Patient negative for dysphagia as well Patient ordered CT scan for evaluation abdominal pressure/mass bulge in abdomen. Patient did undergo ultrasound with unremarkable findings but continues with abdominal pressure. Patient prefers [place] location and has approval from insurance if [...] with FibroScan would be warranted Author Chet [facility] HospitalAutredAugust 2024 11:02am44 year old female here for [...] fluoroscopic guidance. Follow up after procedure. Author Tariqshahrzad [facility] HospitalAuthoredSeptember 2024 10:07am44 year old female here for [...] while managing her pain. Author Bandar Portillo [facility] HospitalAuthoredly 2024 11:26amA 44-year-old female patient with diagnosis of dyspepsia, [...] March 03, 2025 4:14pm XR thoracic spine 3V*February 14, 2025 10:03am Future Visits Future appointment information is unavailable Referrals to Other Providers Reason for Referral Referral Start Date Provider Abiola ngo Contact Information Provider Address Call Dr[facility] Donaldson office to [facility] a follow up appointment if you do not already have one scheduledAdolfo Kang MDWork Phone: [phone] [facility] [address] [facility] [address]XsgfttTerence Pacheco MDWork Phone: [phone] [facility] [address] [facility] [address] Future Procedures Procedure Name Ordered Date Scheduled [...] Know your Meds Jorge Luis Non Diagnostic BlockSeptreunion [facility] 2024 10:00amSkin abscess drainage - Discharge instructions How to change a dressing Know your MedsOctober 2024 2:46pm Goals Acute Goals Author Authored Date Experience reduced anxiety * Identifies current stressors * Develops effective coping behaviors * Uses support services as appropriateUniversity Hospitals Ahuja Medical CenterOctwilliamson [facility] hospital 2024 6:46pmRemain free of complications Oly [facility] 2024 6:46pmUnderstand preop/postop care/sensations * Verbalizes understanding of surgical procedure * Verbalizes understanding of sensations following surgery * Verbalizes understanding of post-op treatment planUniversity Hospitals Ahuja Medical CenterOctwilliamson arh hospital 2024 6:46pmReport pain at tolerable level * Uses pain scale appropriately * Identify options for pain control - Analgesics - Narcotics - Non-medication measuresOly [facility] HospitalOctwilli[facility] hospital 2024 6:46pmAbsence of imbalanced fluid volume s/s Oly [facility] HospitalOctwilli[facility] 2024 6:46pmAbsence of physical injury Oly [facility] HospitalOctwilli[facility] 2024 6:46pmAbsence of surgical site infection Oly [facility] HospitalOctwilli[facility] 2024 6:46pm
--- OUTSIDE RECORDS SUMMARY | 2025-03-14 01:45 | XMS_ITS | Clinical Summary ---
Author Organization [facility] Address [address] [place] [address] Care Team Providers Care Bank Officer Name Role Phone Gay De La Torre MD Unavailable [phone] Allergies Active AllergyReactionsCriticalityNoted NoteQnpdnmrwGujpdbdzvhhBfr64/12/2022 Other Reaction(s): Unknown Patient states it was a long time ago and she did not have a severe reaction. ??She does not believe she is allergic, she just thinks she just experienced side effects. Other Reaction(s): Unknown Reaction Ahijzhy6405/31/2014 Other Reaction(s): Other: See Comments, Trouble breathing ?... Make her feel ??Jittery. ??OTHERWISE, NO SOB/WHEEZING, and NO DYSPHAGIA, NO URTICARIA, NO ANGIOEDEMA OcxookwlkcyWvddtmv95/17/5802YfeksUdmxHic86/08/2015 Other Reaction(s): Rash Patient states it was a long time ago and she did not have a severe reaction. ??She does not believe she is allergic, she just thinks she just experienced side effects. Rbjsdssarfocyvbu02/17/2023 Other Reaction(s): gi Other Reaction(s): lymph swelling Sulfamethoxazole-ZztsxjwjeyjcHvbubqapLma95/03/2016 Other Reaction(s): Other, sick Patient states it was a long time ago and she did not have a severe reaction. ??She does not believe she is allergic, she just thinks she just experienced side effects. Mmbxgmtmbowi15/17/2023 Other Reaction(s): gi Other Reaction(s): lymph swelling Medications MedicationSigDispense QuantityRefillsLast FilledStart DateEnd DateStatus Triamcinolone Acetonide 0.025 % lotion 1 biycttmbmri26/31/2023ctive ibuprofen 200 MG tablet every 8 (eight) hoursActive hydroxychloroquine (Plaquenil) 400 MG tablet 1 (one) time each day at the same timeActive acetaminophen (Tylenol) 325 MG tablet every 4 (four) hoursActive nystatin (Mycostatin) cream Indications:Candidiasis of skinApply to left armpit BID until clear 15 g 01/15/2023ctive metoprolol tartrate (Lopressor) 50 MG tablet Take 100 mg by mouth in the morning and 100 mg before bedtime.04/23/2023ctive folic acid (Folvite) 1 MG tablet Take 1 mg by mouth in the morning.01/15/2023ctive ergocalciferol (Vitamin D2) 1.25 MG (82121 UT) capsule Take 50,000 Units by mouth 1 (one) time per weekActive aspirin 81 MG chewable tablet Chew 81 mg DailyActive belimumab (Benlysta) 200 MG/ML injection Inject 200 mg under the skin 1 (one) time per week02/04/2023ctive predniSONE 10 MG (21) tablet therapy pack Take 10 mg by mouth 1 (one) time each day at the same timeActive tretinoin (Retin-A) 0.05 % cream Indications:Striae atrophicApply to face, once daily at evening/night time, 30 day supply 20 g ctive fluticasone (Flonase) 50 MCG/ACT nasal spray Indications:Eustachian tube dysfunction, bilateral,Non-recurrent acute serous otitis media of both earsAdminister 2 sprays into each nostril in the morning and 2 sprays before bedtime. Shake gently. Before first use, prime pump. After use, clean tip and replace cap.. 16 g 1204Active diclofenac sodium 1 % gel 02/01/2024ctive pantoprazole (ProtoNix) 20 MG EC tablet Take 20 mg by mouth in the morning. Take before meals. Do not crush, chew, or split.Active clindamycin (Cleocin T) 1 % lotion Indications:Hidradenitis suppurativaApply thin later to affected areas on the thighs, once daily, 30 day supply 60 mL 5Active Chlorhexidine Gluconate (Hibiclens) 4 % solution Indications:Hidradenitis suppurativaUse every day in shower from the neck down to affected areas. 532 mL 5Active Clobetasol Propionate 0.05 % shampoo Indications:Other seborrheic dermatitis1 application to the scalp in the shower topically 3-4 times a week 236 mL 5Active fluocinonide (Lidex) 0.05 % external solution Indications:Other seborrheic dermatitisApply to affected areas on the scalp, up to twice a day when flared, 30 day supply 60 mL 5Active tacrolimus (Protopic) 0.1 % ointment Indications:Lupus erythematosus tumidusApply to affected area on forehead bid prn flares, hold if clear 30 g 5Active KlonoPIN 0.5 MG tablet 1 tablet Orally Once a day prn for 30 days5Active immune globulin, human, (Gammagard) infusion Infuse into a venous catheterActive tretinoin (Retin-A) 0.025 % cream Indications:Acne vulgarisApply to face, once daily at evening/night time, 30 day supply 45 g 5Active cephalexin (Keflex) 500 MG capsule 02/27/2025tive azaTHIOprine (Imuran) 50 MG tablet Take 150 mg by mouth DailyDiscontinued(Therapy completed) baclofen (Lioresal) 5 MG tablet Indications:Lumbosacral radiculopathy at L5,Degenerative disc disease, lumbar, Cervical radiculopathy at C5TAKE 1 TABLET BY MOUTH IN THE MORNING, EVENING AND BEFORE BEDTIME 270 tablet 110/022766/12/2024Discontinued(Therapy completed) norethindrone-ethinyl estradiol-iron (Lo Loestrin Fe) 1 MG-10 MCG / 10 MCG tablet Indications:Menorrhagia with regular cycleTake 1 tablet by mouth Daily Take 1 tablet by mouth daily 28 tablet 111Discontinued(Therapy completed) Trulicity 1.5 MG/0.5ML solution auto-injector INJECT SUBCUTANEOUSLY ONCE A WEEK UJZQLWXQ42Discontinued (Therapy completed)Hospital, Clinic, or Other Facility Administered Medication Ordered DoseRouteFrequencyStart DateEnd DateStatus triamcinolone acetonide (Kenalog) injection 2.5 mg Indications:Hidradenitis suppurativa,Pain2.5 mgINTRA-TXYQWZZjzu83/03/2025tive triamcinolone acetonide (Kenalog) injection 2.5 mg Indications:Hidradenitis suppurativa2.5 mgINTRA-FHVGGFUpah00/24/10760502/14/2025 Ended Active Problems ProblemNoted DateDiagnosed DatePilonidal ricuopw6202/28/2025Lupus erythematosus 04/06/20240210Yfyfzrvkudnp15/14/2024Frequent ocgzicxzxa83/09/2024 Fmiowpxhwltzyzhlznmbu91/09/2024. difficile /15/0562Gcrgxqfv51/15/2024 Duct ectasia of gsrovz4503/07/2024GERD (gastroesophageal reflux disease)03/07/2024 Insulin gfqharvzuh47/15/2024Facet arthritis of lumbar pafqzr8712/15/2023Nipple afydrknzb12/24/2024Irregular periods/menstrual jylrtz3011/15/2023egenerative disc disease, clemdr8411/08/20234071Rxxlyhuxyzih75/17/2024History of vitamin D deficiency 10/05/20238596Sirlwxbsqfv41/02/2024ure hypercholesterolemia, dpwggdukwys86/19/2024 Hdloyv9108/10/2023Thyroid efdrif9708/10/2023Shortness of jxhipm3407/13/2023aroxysmal supraventricular xbfuivftwqb38/20/2024AC (premature atrial contraction) 07/13/2023ervical dumsfynospwen62/13/2024Lumbosacral radiculopathy at L5 07/06/2023hronic lzfqsmciwsmqvaerpr28/13/2024urrent gjdctj9007/06/2023 Overview (07/06/2023): Added secondary to documentation in Social History. Tobacco use drtbfwaz18/13/2024ytomegalovirus ascxuiphl99/13/2024isturbance of skin xwhxrabpo79/13/2024Enthesopathy of hip diusvg2607/06/2023LPRD (laryngopharyngeal reflux disease)07/06/20237689Pqvzaou82/13/2024Oral lesion 07/06/2023ain, hip07/06/2023hronic fatigue and mtefqwd4406/10/2023nxiety 06/09/2023epression, ihparkvyf27/17/2024Essential dndltxusqmkm10/17/2024 Autoimmune lmiodfy4606/01/20237586Bcrgkllncwqu95/09/2024utonomic dysfunction 06/01/20231259Dpoolsnhl12/09/0329Htyfgeuealn38/09/2024Nonintractable episodic sfugglax17/09/2024ilateral wrist pain02/04/2023Long term current use of systemic sqpywlyi45/14/2023Steroid-induced /14/2023Raynaud's disease without qzeavgno74/14/2023Excessive and frequent menstruation with irregular cycle09/24/2022Obesity, Class III, BMI 40-49.9 (morbid obesity) 09/07/2022NA xxtdqazo38/23/2023Long-term use of high-risk supjardplc04/23/2023 Obstructive sleep apnea knxzkejs19/28/2022omnolence, qvcvbaw8305/20/2022nemia, rysjptljwzg40/19/2022Megaloblastic anemia due to vitamin B12 deficiency 03/04/2022iscoid lupus xrddnapxykoxg07/24/2022Vitamin D cwugfhaino46/14/2021 Bilateral leg uhlhwdfc17/13/2021hronic pain of toes of both feet03/05/2021 Elevated sed rate10/13/2021High total serum IgM03/05/2021Family history of Crohn's kddczqx1803/05/2021Hair loss03/05/2021ong-term use of Jsyetmtqv88/13/2021 Rash and nonspecific skin enllhtmy87/13/2021econdary osteoarthritis of multiple sites03/05/2021welling of lymph nodes03/05/20218726Wbyxpz06/08/2015Hyperlipidemia 05/31/2014Vitamin B12 mpcfruomym29/08/2015 Encounters DateTypeDepartmentCare GiotCxtfmgpzsgz51/21/2025Telephone [facility] [address] [place] [phone] Elizabeth Lockhart MA Final path came back [facility]03/07/2025Orders Only [facility] [address] [place] [phone] Terence Blum MD 03/06/20257271Jhtcpv50/13/2025Telephone [facility] [address] [facility] [address] [place] [phone] Elizabeth Lockhart MA Questions on medications.03/02/2025External Result Encounter [facility] External Department Unsolicited Terence Blum MD 02/28/2025 9:30 AM EDTConsult [facility] [address] [facility] [address] [place] [phone] Terence Blum MD Pilonidal abscess (Primary Dx); Pilonidal cyst02/28/20258383Cwlhvw37/07/2707Wxbawk25/06/7063Agybju96/03/2025Travel 02/19/20258629Pejruu27/24/2025 3:20 PM EDTOffice Visit [facility] [address] [place] [phone] Cynthia English MD Pilonidal cyst (Primary Dx); Hidradenitis qfxfhxikwlq30/24/2025amboo flowsheet [facility] [address] [place] [phone] Cynthia English MD 02/14/20259125Ldmgie42/09/2025Results Follow-Up [facility] [address] [place] [address] [place] [address] JoshSabi blakely, CARLIN Left breast US rmishrg3701/26/2025 11:45 AM EDTAncillary Procedure [facility] [address] [place] [address] Other benign mammary dysplasias of left njlfpn0001/26/2025Travelfrom Last 3 Months Family History Medical HistoryRelationNameCommentslung issueChild1 son with lung issue, 3 daughtersNo Known ProblemsDaughter 1CancerFatherWilliamPancreatitisFatherWilliam Stomach cancerFatherWilliamDiabetesMaternal GrandmotherClelauraHeart failure Maternal GrandmotherClelauraRheum arthritisMaternal GrandmotherClelauraCrohn's diseaseMotherSallyThyroid diseaseMotherSallyNo Known DogdsykzHinjdv9Nekj disease SonRelationNameStatusCommentsChildAliveDaughter 5Dpfpi3 daughtersDaughter 2Alive Daughter 3AliveFatherWilliamDeceasedMaternal GrandmotherClelauraMotherSallyAlive Mother's SisterDeceasedSisterAlive1 sisterSonAlive1 son Social History Tobacco UseTypesPacks/DayYears UsedDateSmoking Tobacco: Every WjdPlmjzdbxna590.8 Started: 05/24/1995Smokeless Tobacco: Never Tobacco Cessation:Ready to Q uit: Yes; Counseling Given: Yes Comments:Current smoker, everyday, 11-20 cigarettes/day Alcohol UseStandard Drinks/WeekCommentsNever0 (1 standard drink = 0.6 oz pure alcohol)Caffeine intake : > 4 cups per dayCommentsNoSex and Gender InformationValueDate RecordedSex Assigned at BirthNot on fileLegal SexFemale 08/05/2022 7:18 PM EDTGender IdentityNot on fileSexual OrientationNot on file Last Filed Vital Signs Vital SignReadingTime TakenCommentsBlood Fsrzyduc964/7810 9:25 AM EDT Jlczr27714 3:04 PM RGOWwgjgvrreuz38.1 ??C (98.7 ??F)04/02/2024 1:27 PM ESTRespiratory Cqxb114008/24/2023 8:22 AM EDTOxygen Sugxgvjdbk87%04/02/2024 1:27 PM ESTInhaled Oxygen Concentration--Dycxfg024 kg (291 lb)02/28/2025 9:25 AM EDT Eksstm720.2 cm (5' 7 )02/28/2025 9:25 AM EDTBody Mass Index45.5802/28/2025 9:25 AM EDT Plan of Treatment DateTypeDepartmentCare Team (Latest Contact Info)Rewitlowbvz15/27/2025 10:20 AM EDTOffice Visit [facility] [address] [facility] [address] [place] [address] Mary Grace Mejias MD [address] [facility] [address] [place] [address] 03/23/2025 11:30 AM EDTOffice Visit [facility] [address] [facility] [address] [place] [address] Terence Blum MD [address] [facility] [address] [place] [address] 07/25/2025 11:00 AM ESTOffice Visit [facility] [place] [facility] [address] [facility] [address] [place] [address] Cynthia English MD [address] [facility] [address] [place] [address] Health MaintenanceDue DateLast DoneCommentsInfluenza Vaccine (#1)01/22/2025 Tbkvawbpe58/15/881290/4Pap Smear, 3Cervical Cancer Abogaemvi24/20/2028HPV/Fevxwy2709/11/2027 Procedures Procedure NamePriorityDate/TimeAssociated DiagnosisCommentsAEROBIC ELPIDIO CHARGE (NMIC56)Qzgujpm9903/02/2025 5:17 PM EDT ANAEROBIC SNXWWFWXikylym43/10/2025 5:17 PM EDT AEROBIC CLXGHRBZpwlpjh01/10/2025 5:17 PM EDT GRAM ADTOMWsvctbd89/10/2025 5:17 PM EDT GENERAL YNGMTCMATIfekfpe04/10/2025 11:32 AM EDTBI US BREAST LIMITED LEFTRoutine 01/26/2025 12:14 PM EDT Other benign mammary dysplasias of left breast PAP TYWHXJjrgqyb28/14/2025 12:00 AM ESTMM TOMOSYNTHESIS DIAGNOSTIC BI04/07/2024 8:40 AM EST from Last 3 Months or Most Recently Relevant to Health Maintenance Results * (ABNORMAL) AEROBIC ELPIDIO CHARGE (NMIC56) (03/02/2025 5:17 PM EDT)ComponentValue Ref RangeTest MethodAnalysis TimePerformed AtPathologist SignatureAMIKACIN<16 (S)03/04/2025 9:13 AM [facility] CtrAZTREONAM<4(I) 03/04/2025 9:13 AM [facility] CtrCEFEPIME<2(S)03/04/2025 9:13 AM [facility] CtrCEFTAZIDIME<1(I)03/04/2025 9:13 AM [facility] CtrCEFTAZIDIME/AVIBACTAM<4(S)03/04/2025 9:13 AM [facility] CtrCEFTOLOZANE/TAZOBACTAM<2(S)03/04/2025 9:13 AM [facility] CtrCEFTRIAXONE<1(I)03/04/2025 9:13 AM EDT [facility] CtrCIPROFLOXACIN>2(R)03/04/2025 9:13 AM EDT [facility] CtrERTAPENEM<0.5(S)03/04/2025 9:13 AM [facility] CtrGENTAMICIN<2(S)03/04/2025 9:13 AM [facility] CtrLEVOFLOXACIN<0.5(S)03/04/2025 9:13 AM [facility] CtrMEROPENEM<1(S)03/04/2025 9:13 AM [facility] MEROPENEM/VABORBACTAM<2(S)03/04/2025 9:13 AM [facility] PIPERACILLIN/TAZOBACTAM<8(I)03/04/2025 9:13 AM [facility] CtrTETRACYCLINE>8(R)03/04/2025 9:13 AM [facility] TIGECYCLINE<2(S)03/04/2025 9:13 AM [facility] CtrTOBRAMYCIN <2(S)03/04/2025 9:13 AM [facility] TRIMETHOPRIM/SULFAMETHOXAZOLE<0.5/9.5(S)03/04/2025 9:13 AM [facility] CtrSpecimen (Source)Anatomical Location / Laterality Collection Method / VolumeCollection TimeReceived TimeOtherSpecimen from uterine cervix / Gsswikp8103/02/2025 5:17 PM EDT1 5:38 PM EDTComment: Abscess Narrative Authorizing ProviderResult TypeResult StatusAlbert Kulwant Pacheco MDFIRELANDSFinal ResultPerforming OrganizationAddressCity/State/ZIP CodePhone Number [facility] [address] [place] [address], [facility] [address] [place] [address] * ANAEROBIC CULTURE (03/02/2025 5:17 PM EDT)ComponentValueRef RangeTest Method Analysis TimePerformed AtPathologist SignatureFRMC ORGANISMPrevotella species 03/13/2025 12:54 PM [facility] CtrCOMMENTS.03/13/2025 12:54 PM [facility] CtrQUANTITY OF GROWTHLight Pwqfzh3703/13/2025 12:54 PM [facility] CtrSEND TEST TO REF. LABSent to [facility] for [facility]STIAN ID03/13/2025 12:54 PM [facility] CtrComment: Identification performed at: ??CB - [facility] [address] ??[id number] Bench Repair Technician: Doyle Mendenhall PhD, Phone: ??[phone] Please contact Microbiology within 7 days if anaerobic susceptibilities are needed. Specimen (Source)Anatomical Location / LateralityCollection Method / Volume Collection TimeReceived TimeOtherSpecimen from uterine cervix / Unknown 03/02/2025 5:17 PM EDT1 5:38 PM EDTComment:Abscess Narrative [facility] - 03/13/2025 12:54 PM EDT Comment pilonidal abscess culture Authorizing ProviderResult TypeResult StatusMARGOT Salcedo BLOOD ORDERABLESFinal ResultPerforming OrganizationAddressCity/State/ZIP CodePhone Number [facility] [address] [place] [address], [facility] [address] [place] [address] * AEROBIC CULTURE (03/02/2025 5:17 PM EDT)ComponentValueRef RangeTest Method Analysis TimePerformed AtPathologist SignatureFRMC ORGANISMSerratia marcescens 03/04/2025 9:13 AM [facility] CtrQUANTITY OF GROWTHLight Nckblq5903/04/2025 9:13 AM [facility] CtrSpecimen (Source) Anatomical Location / LateralityCollection Method / VolumeCollection Time Received TimeOtherSpecimen from uterine cervix / Xlhmzez6303/02/2025 5:17 PM EDT 03/02/2025 5:38 PM EDTComment:Abscess Narrative [facility] - 03/13/2025 12:54 PM EDT Comment pilonidal abscess culture Authorizing ProviderResult TypeResult StatusMARGOT Salcedo BLOOD ORDERABLESFinal ResultPerforming OrganizationAddressCity/State/[facility] CodePhone Number [facility] [address] [place] [address], [facility] [address] [place] [address] * (ABNORMAL) Gram stain (03/02/2025 5:17 PM EDT)ComponentValueRef RangeTest MethodAnalysis TimePerformed AtPathologist SignatureGRAM STAIN1+ Gram Positive Cocci(A)03/03/2025 2:17 PM [facility] CtrGRAM STAIN2+ White Blood Cells(A)03/03/2025 2:17 PM [facility] CtrSpecimen (Source)Anatomical Location / LateralityCollection Method / VolumeCollection TimeReceived TimeOtherSpecimen from uterine cervix / Sevzrnv4203/02/2025 5:17 PM EDT1 5:38 PM EDTComment:Abscess Narrative [facility] - 03/13/2025 12:54 PM EDT Comment pilonidal abscess culture Authorizing ProviderResult TypeResult StatusMARGOT Salcedo MICROBIOLOGY - GENERAL ORDERABLESFinal ResultPerforming OrganizationAddressCity/State/ZIP CodePhone Number [facility] [address] [place] [address], [facility] [address] [place] [address] * GENERAL PATHOLOGY (03/02/2025 11:32 AM EDT) Narrative Authorizing ProviderResult TypeResult StatusGIUSEPPE SalcedoLINISYNCFinal Result * Left breast US limited (01/26/2025 12:14 PM EDT)Anatomical RegionLaterality ModalityBreastLeftUltrasoundSpecimen (Source)Anatomical Location / Laterality Collection Method / VolumeCollection TimeReceived Time01/26/2025 3:38 PM EDT Impressions 01/26/2025 3:52 PM [...] areas. Findings measure approximately 0.8 x 0.8 x0.4 cm and 0.8 x 0.7 x 0.5 cm, 1 of these likely correlates with previously noted finding without significant change. Findings most likely represent sebaceous cysts. No obvious solid vascular mass to suggest neoplasm. No obvious abnormal calcifications or vascularity. No obvious adenopathy. Authorizing ProviderResult TypeResult StatusAmy Temo PAI US PROCEDURESFinal Result * Pap Smear (06/06/2024 12:00 AM EST)Specimen (Source)Anatomical Location / LateralityCollection Method / VolumeCollection TimeReceived TimeSwabCervical swab / Unknown Narrative Authorizing ProviderResult TypeResult StatusAmy Temo PAL CYTOLOGY ORDERABLES Final ResultPerforming OrganizationAddressCity/State/ZIP CodePhone Number EXTERNAL LAB * MM TOMOSYNTHESIS DIAGNOSTIC BI (04/07/2024 8:40 AM EST)Anatomical Region LateralityModalityOtherSpecimen (Source)Anatomical Location / Laterality Collection Method / VolumeCollection TimeReceived Time04/07/2024 8:40 AM EST Narrative 04/07/2024 8:41 AM EST [facility] ?[address] ? [place] [address] ? Mammography Report ? Signed ? Patient: JONES PANIAGUA B ?MR#: [id number] ?? : 1980 ?Acct:[id number] ?? Age/Sex: 43 / F ?ADM Date: 04/06/ ?? Loc: US ? Attending Dr: Luan Valdivia D.O. ? Ordering Physician: Luan Valdivia D.O. ?Results: ? Date of Service: 04/06/ ?Follow Up: ? Procedure(s): MM tomosynthesis diagnostic BI ?? Accession Number(s): [id number] ? cc: GAY DE LA TORRE ; Luan Valdivia D.O. ? Patient Name: ? JONES PANIAGUA ? MR#: [id number] ? : 1980 ? Exam Date: 04/06/2024 ?? Ordering Doctor: DR Luan Valdivia . ? RADIOLOGY REPORT ? PROCEDURE: ? MM TOMOSYNTHESIS DIAGNOSTIC BI, 04/06/2024, 15:20 ?? US BREAST BI LIMITED, 04/06/2024, 15:37 ? COMPARISON: ? MM TOMOSYNTHESIS SCREENING BI, 09/23/2023. ??MG MAMM SCREEN 3D ?? MARK CAD, 09/01/2022. ??MG MAMM SCREEN 3D MARK CAD, 12/05/2020. ? INDICATIONS: ? Nipple Discharge ? Calculator Name ? NCI Breast Cancer Risk Assessment Tool ?? 5 Year Breast Cancer Risk ? 1.00% ?? Lifetime Breast Cancer Risk ? 13.20% ?? Personal Breast Cancer ?No ?? Personal Ovarian Cancer ? No ?? Treatments ? None ?? Family Cancers ? Grandmother-paternal with breast cancer at age ??67; ?? Aunt-paternal with breast cancer at age ??50; Father with stomach cancer at ?? age 56. ? LOCATION: ? [facility] ? BREAST COMPOSITION: ? There are scattered areas of fibroglandular density. ? FINDINGS: ? DIAGNOSTIC CATEGORY 2--BENIGN FINDING: ? RIGHT BREAST: ??No significant suspicious finding. ??Scattered benign-appearing ?? calcifications are present. ??Scattered benign-appearing lymph nodes are ?? present. ??No significant change has occurred. ?? Ultrasound evaluation demonstrates minimally prominent subareolar ducts ?? without appreciable mass or intraluminal debris. ? LEFT BREAST: ??No significant suspicious finding. ??No significant change has ?? occurred. ?? Ultrasound evaluation demonstrates minimally prominent subareolar ducts ?? without appreciable mass or intraluminal debris. ? RECOMMENDATIONS: ? ROUTINE MAMMOGRAM AND CLINICAL EVALUATION IN 12 MONTHS. ? PLEASE NOTE: ??A NORMAL MAMMOGRAM DOES NOT EXCLUDE THE POSSIBILITY OF BREAST ?? CANCER. ??A CLINICALLY SUSPICIOUS PALPABLE LUMP SHOULD BE BIOPSIED. ? Dictated by: Vito Yusuf M.D. on 04/07/2024 at 08:29 ? Approved by: Vito Yusuf M.D. on 04/07/2024 at 08:40 ? Dictated By: ?Vito Yusuf M.D. ? Signed By: ?04/07/24 0841 ? DD/ 0840 ? TD/TT: ? Recyclable Materials Sorter: Procedure Note Radiology, Radiologist, MD - 04/07/2024 [place] [address] Mammography Report Signed Patient: JONES PANIAGUA BMR#: [id number] : 1980Acct:[id number] Age/Sex: 43 / FADM Date: 04/06/24 Loc: US Attending Dr: Luan Valdivia D.O. Ordering Physician: Luan Valdivia D.O.Results: Date of Service: 04/06/24Follow Up: Procedure(s): MM tomosynthesis diagnostic BI Accession Number(s): [id number] cc: GAY DE LA TORRE ; Luan Valdivia D.O. Patient Name: JONES PANIAGUA MR#: [id number] : 1980 Exam Date: 04/06/2024 Ordering Doctor: DR Luan Valdivia . RADIOLOGY REPORT PROCEDURE: MM TOMOSYNTHESIS DIAGNOSTIC BI, 04/06/2024, 15:20 US BREAST BI LIMITED, 04/06/2024, 15:37 COMPARISON: MM TOMOSYNTHESIS SCREENING BI, 09/23/2023. MG MAMM PJEHRT5V MARK CAD, 09/01/2022. MG MAMM SCREEN 3D [...] 56. LOCATION: [facility] BREAST COMPOSITION: There are scattered areas [...] M.D. Signed By:04/07/24 0841 DD/ 0840 TD/TT: Recyclable Materials Sorter: Authorizing ProviderResult TypeResult StatusCorey Skip DOCLINISYNC IMAGINGFinal Result from Last 3 Months or Most Recently Relevant to Health Maintenance Insurance Care Teams Team MemberRelationshipSpecialtyStart DateEnd Date Gay De La Torre MD [address] [place] [phone] Referring PhysicianFami Medicine07/18/24
--- OUTSIDE RECORDS SUMMARY | 2025-03-14 01:47 | XMS_ITS | CCD ---
Author Organization [facility] CliniSyne Care Team Providers Care Mingler Operator Name Role Phone VICTOR MANUEL GUZMAN Referring Unavailable Unavailable Primary Care Provider UnavailJONAS Stuart Referring Unavailable Britt STRAP MAKING MACHINE OPERATOR.TRUE, Gay Primary Care Provider Edgardo Baer Unavailable Britt STRAP MAKING MACHINE OPERATOR.VP PRODUCT MARKETING, Gay Primary Care Provider [phone] Manuel Ferris MD Unavailable Manuel Ferris MD [...] HOY ., DR BURKETT Admitting Unavailable GAY DE LA TORRE Attending Unavailable GAY DE LA TORRE Admitting Unavailable HOY ., DR BURKETT Primary Care Unavailable HOY ., DR BURKETT Consulting Unavailable HOY ., DR BURKETT Primary Care Unavailable HOY ., DR BURKETT Consulting Unavailable HOY ., DR BURKETT Attending Unavailable HOY ., DR BURKETT Admitting Unavailable BLANK, DR DIETZ Consulting Unavailable BLANK, DR DIETZ Attending Unavailable BLANK, DR DIETZ Admitting Unavailable GAY DE LA TORRE Primary Care Unavailable BLANK, DR DIETZ Consulting Unavailable BLANK, DR DIETZ Attending Unavailable LAURE, DR DIETZ Admitting Unavailable HOY ., DR BURKETT Primary Care Unavailable TEMO ., OLY Attending Unavailable TEMO ., OLY Admitting Unavailable NELE, DR AURORA Pacheco Consulting Unavailable HOY ., [...] Provider MD Adolfo Kang Attending Provider CARISSA De La Torre-Ananya Gay Natalie Primary Care Provider [phone] Charles Nicole MD Primary Care Provider CALOS ARCE Attending Unavailable Unavailable Primary Care Provider UnavailManuel Calixto MD Unavailable Britt EDUCATION ANALYST-C, Gay Natalie Primary Care Provider [phone] Adolfo Kang MD Attending Provider [phone] ALHAJI VICTORIA Attending Unavailable MANUEL FERRIS Primary Care Unavailable ALHAJI VICTORIA Attending Unavailable VAIBHAV CARVALHO Referring Unavailable MANUEL FERRIS Primary Care Unavailable Gay De La Torre MD Unavailable Mitali THORPE-TRUE, Michelle London Unavailable Aurora Patel MD Unavailable Britt TABOR, Gay S Primary Care Provider LOIS HOLM Attending Unavailable GAY DE LA TORRE S Primary Care Unavailable HOLM, SAENZ M Attending Unavailable LOIS HOLM M Referring Unavailable BRITT, GAY S Primary Care Unavailable Britt EDUCATION ANALYST-C, Gay Natalie Primary Care Provider Jorge Luis LEE, Adolfo Jane Attending Provider Britt EDUCATION ANALYST-C, Gay Natalie Primary Care Provider Jorge Luis LEE, Adolfo Jane Attending Provider [phone] Margie Arnett NP Attending Provider Britt EDUCATION ANALYST-C, Gay Natalie Primary Care Provider Jorge Luis LEE, Adolfo Jane Attending Provider Bandar Portillo APRN Attending Provider Britt EDUCATION ANALYST-C, Gay Natalie Primary Care Provider Adolfo Kang [...] Unavailable HOY, MANUEL M Primary Care Unavailable DEVENTODDE Attending Unavailable ABHYANKAR, VERA Referring Unavailable HOY, MANUEL M Primary Care Unavailable ABHYANKAR, VERA Referring Unavailable HOY, MANUEL M Primary Care Unavailable LAST, LYNNE Referring Unavailable HOY, MANUEL M Primary Care Unavailable HOY, MANUEL M Primary Care Unavailable ABHYANKAR, VERA Referring Unavailable MARKY GASCA Attending Unavailable HOY, MANUEL M Primary Care [...] Attending Provider Mathew Ji MD Attending Provider [phone] BERNABE ENGLISH Attending Unavailable GORDO BARFIELD Attending Unavailable MELISSA HUDDLESTON Attending Unavailable OLY PLASCENCIA Referring Unavailable BERNABE ENGLISH Attending Unavailable TERENCE DAY Attending Unavailable BERNABE ENGLISH Referring Unavailable LUAN VALDIVIA Attending Unavailable OLY PLASCENCIA Attending Unavailable MARKY NICHOLS Attending Unavailable GORDO BARFIELD Attending Unavailable GAY DE LA TORRE Referring Unavailable OLY PLASCENCIA Attending Unavailable Britt EDUCATION ANALYST-C, Gay Natalie Primary Care Provider [phone] Margie Arnett NP Attending Provider Terence Blum MD Attending Provider Jose Perez DO Attending Provider Britt EDUCATION ANALYST-C, Gay Estrada Attending Provider [phone] Jose Perez Admitting Unavailable Jose Perez Attending Unavailable Gay De La Torre Admitting Unavailable Gay De La Torre Attending Unavailable Janes Barfield Admitting Unavailab Janes Quispe Attending Unavailab susan De La Torre, Gay Natalie Primary Care Unavailable Jorge Luis, Adolfo S Admitting Unavailable Adolfo Kang S Attending Unavailable Britt, Gay Natalie Primary Care Unavailable Jorge Luis, Adolfo S Admitting Unavailable Jorge LuisAdolfo rogers S Attending Unavailable Britt, Gay Natalie Primary Care Unavailable Terence Blum Admitting Unavailable Terence Blum Attending Unavailable Britt, Gay Natalie Primary Care Unavailable Mathew Ji Admitting Unavailable Mathew Ji Attending Unavailable Britt EDUCATION ANALYST-C, Gay Natalie Primary Care Provider Bandar Portillo APRN Attending Provider NON STAFF Primary Care Provider Unavailabl e Allergies Allergy ClassificationReported Allergen(s)Allergy TypeDate of OnsetReaction(s) FacilityDihydrofolate Reductase Inhibitors (antibiotic) (3 sources)TrimethoprimDrug Nqcnkpy32-28-5377Rpmgz: See CommentsBet[facility] Hospital Doxycycline (3 sources)DoxycyclineDrug Slokmtq53-04-1138Eekuz: See CommentsBethesda North Hospital Latex (3 sources)LatexSubstance Chbmqlv36-24-8405OwokChefdxodd ClinicLincosamides (antibiotic) (3 sources)ClindamycinDrug Xmnwlck67-36-6873MoyblidLskegntxe ClinicOpioid Agonists (3 sources)CodeineDrug Nlrahka33-30-4888Arsox: See CommentsBethesda North Hospital Sulfamethoxazole / Trimethoprim (4 sources)Sulfamethoxazole / TrimethoprimDrug Eszzyak54-81-1869JdoknamxUkgyh HealthSulfonamides (antibiotic) (3 sources)SulfamethoxazoleDrug Btgnlhm72-19-4198Wphmg: See [facility] Work Phone: (20 sources)Codeine; Translations: [CODEINE]Drug Apginxa74-85-9962Hqdiw: See CommentsBethesda North Hospital (20 sources)Latex; Translations: [LATEX]Drug Duapgua88-92-7818YaglKsczzynco Clinic (20 sources)Sulfamethoxazole; Translations: [SULFAMETHOXAZOLE]Drug Allergy 89-00-2929RY Upset, Other: See [facility] (20 sources)Clindamycin; Translations: [CLINDAMYCIN]Drug Dzkovfn64-00-2336 UnknownBethesda North Hospital (4 sources)Sulfamethoxazole / TrimethoprimDrug AllergylyMethod[facility] [employer] Other (20 sources)Doxycycline; Translations: [DOXYCYCLINE]Drug Rfifpas86-34-6018Dkuyj: See Comments, Other, Unknown, Other (See Comments)[facility] (20 sources)Sulfamethoxazole / Trimethoprim; Translations: [SULFAMETHOXAZOLE-TRIMETHOPRIM]Drug Jfvjwhn11-78-5746Sukmmyyy, Other, GI Disturbance, Other (See Comments)[facility] (20 sources)Trimethoprim; Translations: [TRIMETHOPRIM]Drug Fgzcczv80-39-5134 Other: See [facility] (1 source)LatexDrug allergy (disorder)16-11-8376Psd [facility] Repository (1 source)Sulfamethoxazole / TrimethoprimDrug Vcuwjev77-69-9596Ndp [facility] Repository (20 sources)SulfamethoxazoleAllergy to rqpslrikw95-22-4725[facility] (20 sources)LatexPropensity to adverse pzepoical41-22-5369HeplLENU [facility] (1 source)Omeprazole; Translations: [OMEPRAZOLE]Drug Ocvgyhb60-79-9468LkdhgsmwoqGeorgetown [facility]al [facility] (1 source)pantoprazole; Translations: [PANTOPRAZOLE]Drug Ftkqbrt26-49-2395 [facility] Repository (1 source)ClindamycinDrug Njuaatg51-98-8478VhpsixittPremier Health [facility] (1 source)SulfamethoxazoleDrug Loeadsr52-35-5542XrfnbmfacPremier Health [facility] (1 source)TrimethoprimDrug Zlpqlab50-54-2143VxidxbiemPremier Health [facility] Medications Current Medications MedicationDrug Class(es)DatesSig (Normalized)Sig (Original)acetaminophen 500 mg oral tablet (20 sources)Start: 77-13-9832onon 2 tablets by mouth every six hours as needed for painAcetaminophen (Acetaminophen Extra Strength) 500 mg tablet Active 1000 MG PO Every 6 hours as needed for pain January 31, 2025 12:00am Complies with drug therapyStart: 01-24-2025 End: 14-50-3365pslf 1 dose by mouth once, then take 4000 mg by mouth once daily 650 mg, ORAL, ONCE, 1 dose, On Wed01/24/25 at 0930, No more than 4000 mg of acetaminophen should be given per day (FROM ALL SOURCES)Start: 01-11-2025 End: 07-11-0113rsgf 1 dose by mouth once1,000 mg, ORAL, ONCE, 1 dose, On Wed01/11/25 at 1430Start: 12-14-2024 End: 58-80-1071rtpb 1 dose by mouth once1,000 mg, ORAL, ONCE, 1 dose, On Wed12/14/24 at 1430Start: 11-29-2024 End: 40-67-3363etxb 1 dose by mouth once, then take 4000 mg by mouth once daily 650 mg, ORAL, ONCE, 1 dose, On Wed11/29/24 at 1000, No more than 4000 mg of acetaminophen should be given per day (FROM ALL SOURCES)Start: 11-16-2024 End: 55-76-5437cebu 1 dose by mouth once1,000 mg, ORAL, ONCE, 1 dose, On Wed11/16/24 at 1400Start: 10-31-2024 End: 98-31-3015bsrs 1 dose by mouth once, then take 4000 mg by mouth once daily 650 mg, ORAL, ONCE, 1 dose, On Wed10/31/24 at 1000, No more than 4000 mg of acetaminophen should begiven per day (FROM ALL SOURCES)Start: 10-19-2024 End: 64-00-3213cwmb 1 dose by mouth once1,000 mg, ORAL, ONCE, 1 dose, On Wed10/19/24 at 1430Start: 2024 End: 71-11-4011etyq 1 dose by mouth once1,000 mg, ORAL, ONCE, 1 dose, On Wed10/04/24 at 1430Start: 10-02-2024 End: 45-19-8233yzuq 1 dose by mouth once, then take 4000 mg by mouth once daily 650 mg, ORAL, ONCE, 1 dose, On Wed10/02/24 at 0900, No more than 4000 mg of acetaminophen should begiven per day (FROM ALL SOURCES)Start: 09-18-2024 End: 41-97-6632yfmf 1 dose by mouth once1,000 mg, ORAL, ONCE, 1 dose, On Wed09/18/24 at 1300Start: 09-06-2024 End: 33-35-6954jfua 1 dose by mouth once, then take 4000 mg by mouth once daily 650 mg, ORAL, ONCE, 1 dose, On Wed09/06/24 at 0930, No more than 4000 mg of acetaminophen should begiven per day (FROM ALL SOURCES)Start: 08-08-2024 End: 52-80-1059umes 1 dose by mouth once, then take 4000 mg by mouth once daily 650 mg, ORAL, ONCE, 1 dose, On Wed08/08/24 at 0930, No more than 4000 mg of acetaminophen should begiven per day (FROM ALL SOURCES)Start: 07-11-2024 End: 89-16-7940khba 1 dose by mouth once, then take 4000 mg by mouth once daily 650 mg, ORAL, ONCE, 1 dose, On Wed07/11/24 at 0900, No more than 4000 mg of acetaminophen should begiven per day (FROM ALL SOURCES)Start: 06-13-2024 End: 79-23-4501kdgw 1 dose by mouth once, then take 4000 mg by mouth once daily 650 mg, ORAL, ONCE, 1 dose, On Wed06/13/24 at 1000, No more than 4000 mg of acetaminophen should begiven per day (FROM ALL SOURCES)Start: 05-19-2024 End: 52-32-7871rtnv 1 dose by mouth once, then take 4000 mg by mouth once daily 650 mg, ORAL, ONCE, 1 dose, On Wed05/19/24 at 1000, No more than 4000 mg of acetaminophen should be given per day (FROM ALL SOURCES)acetaminophen (Tylenol) 325 MG tablet every 4 (four) hours Activeacetaminophen (TYLENOL) 500 mg tablet Take 1,000 mg by mouth. Activetake 1 tablet by mouth every six hours as needed acetaminophen (TYLENOL) 325 mg tablet Take 1 tablet (325 mg total) by mouth every 6 (six) hours as needed. Activeacetaminophen (TYLENOL) 500 mg tablet Take 1,000 mg by mouth. 0 ActiveComment on above:Take 1,000 mg by mouth.amoxicillin 875 mg oral tablet (2 sources)Penicillin-class AntibacterialStart: 95-69-1997gxqo 1 tablet by mouth every twelve hoursAmoxicillin 875 MG 1 tablet Orally every 12 hrs for 7 days September, Activeamoxicillin 875 mg / clavulanate 125 mg oral tablet (1 source)Penicillin-class Antibacterialtake 1 tablet by mouth twice daily amoxicillin-clavulanate (AUGMENTIN) 875-125 MG per tablet Take 1 tablet by mouth 2 times daily 0 Activeaspirin 81 mg chewable tablet (20 sources)Platelet Aggregation Inhibitor, Nonsteroidal Anti-inflammatory Drug aspirin 81 MG chewable tablet Chew 81 mg Daily ActiveComment on above:Take 81 mg by mouth.baclofen 5 mg oral tablet (20 sources)gamma-Aminobutyric Acid-ergic AgonistStart: 02-09-2024 End: 23-47-0333vgwy 1 tablet by mouth at bedtimebaclofen (Lioresal) 5 MG tablet Indications: Lumbosacral radiculopathy at L5 , Degenerative disc disease, lumbar , Cervical radiculopathy at C5 TAKE 1 TABLET BY MOUTH IN THE MORNING, EVENING AND BEFORE BEDTIME 270 tablet 1 03/02/2024 02/28/2025 Discontinued (Therapy completed)chlorhexidine gluconate 40 mg/ml medicated liquid soap (20 sources)Start: 87-76-9370Gdeduentindfk Gluconate (Hibiclens) 4 % solution Indications: Hidradenitis suppurativa Use every day in shower from the neck down to affected areas. 532 mL 11 07/25/2024 ActiveStart: 11-01-2023 End: 13-64-2543Ydsoneearaefy Gluconate (Hibiclens) 4 % solution Indications: Hidradenitis suppurativa Apply 1 Application topically Daily LATHER ONTO AFFECTED AREAS ON THE BODY AND RINSE FROM THE NECK DOWN 2 TIMES A WEEK AVOIDING THE FACE. 30 day supply 236 mL 03/17/2024 04/16/2024 ActiveStart: 07-15-2023 End: 24-37-2703eowonyxfathcp (Hibiclens) 4 % external liquid Indications: Hidradenitis suppurativa Lather onto affected areas on the body and rinse from the neck down, 2 times a week avoiding the face, 30 day supply 118 mL 07/15/2023 03/16/2024 Discontinuedclindamycin 10 mg/ml topical lotion (20 sources)Lincosamide AntibacterialStart: 04-24-0983apvfwqnnugk (Cleocin T) 1 % lotion Indications: Hidradenitis suppurativa Apply thin later to affected areas on the thighs, once daily, 30 day supply 60 mL 07/25/2024 ActiveStart: 06-23-2022 End: 67-99-0557mjeaeeyiuyy (Clindagel) 1 % gel Indications: Hidradenitis suppurativa APPLY TO AFFECTED AREA DAILY 75 mL 10/06/2023 06/06/2024 Discontinuedclobetasol propionate 0.5 mg/ml medicated shampoo (20 sources)CorticosteroidStart: 14-31-9397Ninwutopsl 0.05 % shampoo Active 1 APPLIC TOPICAL As Directed October 20, 2023 12:00am Complies with drug therapy Start: 82-90-2664Kajosnjzjh Active TOPICAL October 20, 2023 12:00amStart: 10-23-2022 End: 96-43-0173Giiibnvgmp Propionate 0.05 % shampoo Indications: Other seborrheic dermatitis 1 application to the scalp in the shower topically 3-4 times a week 236 mL 07/25/2024 ActiveclonazePAM 0.5 mg oral tablet (20 sources)BenzodiazepineStart: 08-93-6644mrrj 1 tablet by mouth once daily Clonazepam (Klonopin) 0.5 mg tablet Active 0.5 MG PO Daily July 31, 2024 12:00am Complies with drug therapyclotrimazole 10 mg oral lozenge (10 sources)Azole AntifungalStart: 56-35-1562nkgzjctjhfdp (MYCELEX) 10 mg christel USE 1 CHRISTEL WHILE ON IMMUNOSUPPRESSIVE MEDICINE BY MOUTH/THROAT 3 TIMES A DAY 10/23/2024 ActiveStart: 10-54-4352fgshmndovnbg (MYCELEX) 10 mg christel Dissolve 1 Christel in the mouth in the morning and 1 Christel at noon and 1 Christel in the evening and 1 Christel before bedtime. 04/05/2024 ActiveCPAP/BIPAP/OTHER (20 sources)Start: 05-05-2022 End: 99-86-7030WGDZ/BIPAP/OTHER Indications: JOSE RAFAEL (obstructive sleep apnea) Type .CPAPSettings into a note to see current settings/supplies/DME information. 1 Each 05/05/2022 09/19/2049 ActiveStart: 05-05-2022 End: 19-48-6974HDFA/BIPAP/OTHER Indications: JOSE RAFAEL (obstructive sleep apnea) Type .CPAPSettings into a note to see current settings/supplies/DME information. 1 Each 0 05/05/2022 09/19/2049 ActiveStart: 04-13-2022 End: 23-02-9529VZVO/BIPAP/OTHER Indications: JOSE RAFAEL (obstructive sleep apnea) Type .CPAPSettings into a note to see current settings/supplies/DME information. 1 Each 0 04/13/2022 04/26/2023 Discontinued (Duplicate Entry)Start: 04-13-2022 End: 16-89-2470BANU/BIPAP/OTHER Indications: JOSE RAFAEL (obstructive sleep apnea) Type .CPAPSettings into a note to see current settings/supplies/DME information. 1 Each 0 04/13/2022 08/28/2049 ActiveComment on above:Type .CPAPSettings into a note to see current settings/supplies/DME information.diclofenac sodium 0.01 mg/mg topical gel (20 sources)Nonsteroidal Anti-inflammatory DrugStart: 39-45-6370mrpaismvso sodium 1 % gel 02/01/2024 ActiveStart: 71-30-0130bfefxskqtv sodium (VOLTAREN ARTHRITIS PAIN) 1 % gel Apply 2 g topically 4 (four) times a day as needed. 02/01/2024 EbwvstrdqlcssoqwFGJGO-qsnnfr-fnogfuqux (BMX 1:1:1) 1:1:1 liqd (20 sources)Start: 72-55-0540wqoy 5 mL by mouth every six hours as needed fnlzfdykhiDIPSM-izoqgy-yadhulsgr (BMX 1:1:1) 1:1:1 liqd Take 5 mL by mouth every 6 hours as needed.500 mL 1 07/12/2024 Active0.5 ml dulaglutide 3 mg/ml auto-injector (20 sources)GLP-1 Receptor AgonistStart: 08-17-2024 End: 87-24-1590Fvqfoofib 1.5 MG/0.5ML solution auto-injector INJECT SUBCUTANEOUSLY ONCE A WEEK DIRECTED 08/17/2024 02/28/2025 Discontinued (Therapy completed)Start: 73-74-2588pojxyw 0.75 mg by subcutaneous injection onceTRULICITY 0.75 mg/0.5 mL pen injector Inject 0.75 mg subcutaneously one time a week. Per PCP 07/29/2024 ActiveStart: 11-16-2022 End: 74-39-3977umyjzf 1.5 mg by subcutaneous injection every weekdulaglutide (TRULICITY) 1.5 mg/0.5 mL pen injector Indications: Obesity, Class II, BMI 35- 39.9 , Prediabetes Inject 1.5 mg subcutaneously one time a week. 2 mL 0 11/16/2022 ActiveStart: 10-16-2022 End: 15-68-2456poyewv 0.75 mg by subcutaneous injection every weekdulaglutide (TRULICITY) 0.75 mg/0.5 mL pen injector Indications: Obesity, Class III, BMI 40- 49.9 (morbid obesity) ([facility]) , Pre-diabetes Inject 0.75 mg subcutaneously one time a week. 2 mL 0 10/16/2022ctiveStart: 09-07-2022 End: 16-16-3471axegtw 0.75 mg by subcutaneous injection every weekdulaglutide (TRULICITY) 0.75 mg/0.5 mL pen injector Indications: Obesity, Class III, BMI 40- 49.9 (morbid obesity) (HCC) , Pre-diabetes Inject 0.75 mg subcutaneously one time a week. 2 mL 0 ActiveComment on above:Inject 0.75 mg subcutaneously one time a week.Inject 1.5 mg subcutaneously one time a week. DULoxetine 20 mg delayed release oral capsule (20 sources)Serotonin and Norepinephrine Reuptake InhibitorStart: 23-78-6261ysqu 1 capsule by mouth once dailyDuloxetine 20 mg capsule,delayed release(DR/EC) Active 20 MG PO Daily December 12, 2024 12:00am Complies with drug therapyStart: 02-01-2024 End: 43-34-9761pprg 1 capsule by mouth once dailyDULoxetine (Cymbalta) [address] capsule Take 20 mg by mouth Daily 02/01/2024 03/16/2024 DiscontinuedStart: 10-29-2022 End: 19-35-1597ryfo 1 capsule by mouth once dailyDULoxetine (CYMBALTA) 20 mg capsule Indications: Depression, recurrent (HCC) , Chronic pain syndrome Take 1 capsule by mouth once daily. 30 capsule 2 10/29/2022 04/26/2023 Discontinued (Course of therapy completed)Start: 03-09-2022 End: 68-56-6459nbif 1 capsule by mouth once dailyDULoxetine (CYMBALTA) 20 mg capsule Take 1 capsule by mouth once daily. 30 capsule 2 03/09/2022 Active Comment on above:Take 1 capsule by mouth once daily.ergocalciferol 1.25 mg oral capsule (20 sources)Provitamin D2 CompoundStart: 62-15-8688Mxwslwwinhepkr (Vitamin D2) 1,250 mcg (50,000 unit) capsule Active 20307 UNIT PO 3 Times a week November 13, 2024 11:23am Complies with drug therapyStart: 04-02-2024 End: 27-76-5733tegavrelcprtre 50,000 unit capsule (VITAMIN D2, DRISDOL) Indications: Vitamin D deficiency Take 1cap by mouth twice a week x 10weeks, then once a week with food. 24 capsule 1 04/02/2024 07/09/2024 Discontinued Start: 10-20-2023 End: 40-04-3353Efaiewrboapixz (Vitamin D2) 1,250 mcg (50,000 unit) capsule Discontinued 79768 UNIT PO every week October 20, 2023 12:00am November 13, 2024 11:24amStart: 10-31-2022 End: 87-04-9309sfcp 1 capsule by mouth every weekergocalciferol (DRISDOL) 1,250 mcg (50,000 unit) capsule Take 1 capsule (50,000 Units total) by mouth once a week. 10/20/2023 ActiveStart: 20-77-3046lvjezlfnhdzhde 50,000 unit capsule (VITAMIN D2, DRISDOL) Indications: Vitamin D deficiency (take bymouth with food 3times a week, ONE CAPSULE ON Mondays, Fridays) FOR A TOTAL OF 8 WEEKS, then once aweek thereafter. 28 capsule 1 05/18/2022 ActiveStart: 10-26-2021 End: 24-07-2653fjxqqrynfecufe 50,000 unit capsule (VITAMIN D2, DRISDOL) Indications: Vitamin D deficiency (take bymouth with food 2times a week, ONE CAPSULE ON Mondays, Fridays) FOR A TOTAL OF 8 WEEKS, then once aweek thereafter. 20 capsule 1 03/05/2022 ActiveStart: 77-85-0877adjsyllahlsmah 50,000 unit capsule (VITAMIN D2, DRISDOL) Indications: Vitamin D deficiency (take bymouth with food 3times a week, ONE CAPSULE ON Mondays, Wed, Fridays) FOR A TOTAL OF 8 WEEKS. 24 capsule 0 03/06/2021 Activetake 1 capsule by mouth every week ergocalciferol (Vitamin D2) 1.25 MG (31926 UT) capsule Take 50,000 Units by mouth 1 (one) time per week ActiveComment on above:(take by mouth with food 3times a week, ONE CAPSULE ON Mondays, Wed, Fridays) FOR A TOTAL OF 8 WEEKS. (take by mouth with food 3times a week, ONE CAPSULE ON Mondays, Wed, Fridays) FOR A TOTAL OF 10 WEEKS, then once a week thereafter.(take by mouth with food 2times a week, ONE CAPSULE ON Mondays, Fridays) FOR A TOTAL OF 8 WEEKS, then once a week thereafter.(take by mouth with food 3times a week, ONE CAPSULE ON Mondays, Fridays) FOR A TOTAL OF 8 WEEKS, then once a week thereafter.(take by mouth with food 3times a week, ONE CAPSULE ON Mondays, Fridays) FOR A TOTAL OF 10 WEEKS, then once a week thereafter.Take 1cap by mouth once a week with food. Ethinyl Estradiol / Ferrous fumarate / Norethindrone (20 sources)EstrogenStart: 79-92-7716hvml 1 tablet by mouth once dailyLO LOESTRIN FE 1 mg-10 mcg (24)/10 mcg (2) Take 1 tablet by mouth once daily. 11/17/2024 ActiveStart: 03-23-2024 End: 61-23-2332gfmp 1 tablet by mouth once dailynorethindrone-ethinyl estradiol- iron (Lo Loestrin Fe) 1 MG-10 MCG / 10 MCG tablet Indications: Menorrhagia with regular cycle Take 1 tablet by mouth Daily Take 1 tablet by mouth daily 28 tablet 11 03/23/2024 02/28/2025 Discontinued (Therapy completed)Start: 03-23-2024 End: 84-82-4857zrdu 1 tablet by mouth once dailynorethindrone-ethinyl estradiol- iron (Lo Loestrin Fe) 1 MG-10 MCG / 10 MCG tablet Indications: Menorrhagia with regular cycle Take 1 tablet by mouth Daily Take 1 tablet by mouth daily 28 tablet 11 03/23/2024 02/22/2025 Activefidaxomicin 200 mg oral tablet (20 sources)Macrolide AntibacterialStart: 06-15-2024 End: 48-68-3151pwqu 1 tablet by mouth once in the morningfidaxomicin (Dificid) 200 MG tablet Indications: H/O Clostridium difficile infection Take 1 tablet ( 200 mg) by mouth in the morning and 1 tablet (200 mg) before bedtime. Do all this for 10 days. 20 tablet 06/15/2024 06/25/2024 ActiveStart: 10-20-2023 End: 29-08-1803nrqt 1 tablet by mouth every other dayFidaxomicin (Dificid) 200 mg tablet Discontinued 200 MG PO .every other day October 20, 2023 12:00am December 16, 2023 2:11pmStart: 10-20-2023 End: 20-01-9874ayek 1 tablet by mouth every twelve hoursFidaxomicin (Dificid) 200 mg tablet Discontinued 200 MG PO Every 12 hours 20 10 0 October 20, 2023 12: 00am December 16, 2023 2:11pmfludrocortisone acetate 0.1 mg oral tablet (3 sources)Start: 06-01-2023 End: 22-54-2919fmdi 1 tablet by mouth at bedtimefludrocortisone (Florinef) 0.1 MG tablet Indications: Autonomic dysfunction Take 1 tablet (0.1 mg) by mouth at bedtime 30 tablet 11 06/01/2023 05/31/2024 Activefluocinonide 0.5 mg/ml topical solution (20 sources)CorticosteroidStart: 07-15-2023 End: 46-93-0347ekasxpwuifxt (Lidex) 0.05 % external solution Indications: Other seborrheic dermatitis Apply to affected areas on the scalp, up to twice a day when flared, 30 day supply 60 mL 11 07/25/2024 ActiveStart: 10-20-2022 Fluocinonide 0.05 % solution Active 1 APPLIC TOPICAL Daily as needed for rash October 20, 2023 12:00am Complies with drug therapyfluticasone propionate 0.05 mg/actuat metered dose nasal spray (20 sources)CorticosteroidStart: 10-66-1751laqo 2 spray(s) nasal route in the morningfluticasone (Flonase) 50 MCG/ACT nasal spray Indications: Eustachian tube dysfunction, bilateral , Non-recurrent acute serous otitis media of both ears Administer 2 sprays into each nostril in the morning and 2 sprays before bedtime. Shake gently. Before first use, prime pump. After use, clean tip and replace cap.. 16 g 12 12/04/2023 Activefluticasone propionate (FLONASE) 50 mcg/actuation nasal spray Administer 2 sprays into each nostrilas needed. Active folic acid 1 mg oral tablet (20 sources)Start: 77-73-1393wabc 1 tablet by mouth once dailyFolic Acid 1 mg tablet Active 1 MG PO Daily December 12, 2024 12:00am Complies with drug therapy Start: 08-03-9038Lhgli Acid 1 mg tablet Active PO Daily December 12, 2024 12:00am Complies with drug therapyStart: 03-18-2022 End: 25-78-9107yklk 1 tablet by mouth once dailyFolic Acid 1 mg tablet Active 1 MG PO Daily December 12, 2024 12:00am Complies with drug therapyComment on above: Take 1 tablet by mouth once daily.TAKE 1 TABLET BY MOUTH EVERY DAY hydroxychloroquine sulfate 200 mg oral tablet (20 sources)Antimalarial, Antirheumatic AgentStart: 08-28-0096ubftEFHnkpvtbAIRGB (PLAQUENIL) 200 mg tablet Indications: CHRISTIAN positive , Other systemic lupus erythematosus with other organ involvement (HCC) TAKE 1 TAB TWICE A DAY WITH FOOD *SUNSCREEN WHILE OUTDOORS/OPHTHAMOLOGY EVERY 6-12 MONTHS WHILE ON* 60 tablet 11 01/23/2025 ActiveStart: 52-96-5059bklj 2 tablets by mouth once daily Hydroxychloroquine 200 mg tablet Active 400 MG PO Daily October 20, 2023 12:00am Complies with drug therapyStart: 95-86-3595mrcy 400 mg by mouth once daily Hydroxychloroquine Active 400 MG PO Daily October 20, 2023 12:00amStart: 10-19-2023 End: 00-38-5723fiapZWSuigfdfAGDXU (PLAQUENIL) 200 mg tablet Indications: CHRISTIAN positive , Other systemic lupus erythematosus with other organ involvement (HCC) TAKE 1 TAB TWICE A DAY WITH FOOD *SUNSCREEN WHILE OUTDOORS/OPHTHAMOLOGY EVERY 6-12 MONTHS WHILE ON* 60 tablet 11 10/19/2023 ActiveStart: 10-30-2022 hydrOXYchloroQUINE (PLAQUENIL) 200 mg tablet Indications: CHRISTIAN positive , Other systemic lupus erythematosus with other organ involvement (HCC) TAKE 1 TAB TWICE A DAY WITH FOOD *SUNSCREEN WHILE OUTDOORS/OPHTHAMOLOGY EVERY 6-12 MONTHS WHILE ON* 180 tablet 3 10/30/2022 ActiveStart: 05-05-2021 End: 75-26-7797gkprNHZhskprwUVYLE (PLAQUENIL) 200 mg tablet Indications: CHRISTIAN positive , Other systemic lupus erythematosus with other organ involvement (HCC) Take one tab by mouth twice a day with food. Sunscreen when outdoors. See ophthalmology every 6-12months on med. 180 tablet 3 10/24/2021 Active hydroxychloroquine (Plaquenil) 400 MG tablet 1 (one) time each day at the same time Activetake 1 tablet by mouth in the morninghydroxychloroquine 400 mg tablet Take 400 mg by mouth in the morning. Activehydroxychloroquine (Plaquenil) 400 MG tablet 1 (one) time each day at the same time. Activehydroxychloroquine (Plaquenil) 400 MG tablet 1 (one) time each day at the same time. 0 Active End: 25-64-2855dmmdbizkadhlohatpw sulfate (HYDROXYCHLOROQUINE ORAL) Hydroxychloroquine Sulfate Active 0 03/12/2022iscontinued (Duplicate Entry) Hydroxychloroquine Sulfate ActiveComment on above:Take one tab by mouth twice a day with food. Sunscreen when outdoors. See ophthalmology every 6-12months on med.Hydroxychloroquine Sulfate ActiveTAKE 1 TAB TWICE A DAY WITH FOOD *SUNSCREEN WHILE OUTDOORS/OPHTHAMOLOGY EVERY 6-12 MONTHS WHILE ON*hyoscyamine sulfate 0.125 mg oral tablet (2 sources)Start: 81-50-2906xeqf 1 tablet by mouth every six hours as needed for painhyoscyamine (Anaspaz,Levsin) 0.125 MG tablet TAKE 1 TABLET BY MOUTH EVERY 6 HOURS NEEDED FOR ABDOMINAL PAIN 0 06/27/2023 Activeibuprofen 400 mg oral tablet (20 sources)Nonsteroidal Anti-inflammatory DrugStart: 59-71-0402Mntqnbsdr 400 mg tablet Active 400 MG PO 2-3 TIMES PER DAY as needed for pain January 31, 2025 12:00am Complies with drug therapyibuprofen 200 MG tablet every 8 (eight) hours Activeibuprofen (MOTRIN) 200 mg tablet Take 600 mg by mouth. Activetake 1 tablet by mouth every six hours as needed for painibuprofen (ADVIL;MOTRIN) 200 MG tablet Take 200 mg by mouth every 6 hours as needed for Pain 0 ActiveComment on above:Take 600 mg by mouth. Immunoglobulin G (20 sources)Human Immunoglobulin GStart: 60-78-8005Flydn: 64-53-9709xdejfsskh Active IV EVERY 4 WEEKS December 12, 2024 10:58am Complies with drug therapyStart: 12-12-2024 End: 03-20-8498mrtsoqocw Discontinued IV December 12, 2024 12:00am December 12, 2024 10:58amimmune globulin, human, (Gammagard) infusion Infuse into a venous catheter Activeimmune globulin, human, (Gammagard) infusion Infuse into a venous catheter 1 time. Activemagnesium citrate 58.2 mg/ml oral solution (2 sources)Start: 12-68-1135CQT Magnesium Citrate oral solution TAKE HALF OF THE BOTTLE WITH 8 OZ OF WATER, TAKE THE OTHER HALFAFTER 1 HOUR WITH 8 OZ OF WATER 0 06/27/2023 Activemetoprolol tartrate 50 mg oral tablet (20 sources)beta-Adrenergic BlockerStart: 07-26-2024 End: 19-81-9502vpse 1 tablet by mouth four times dailymetoprolol tartrate (Lopressor) 50 mg tablet Indications: Paroxysmal supraventricular tachycardia (C [facility]-HCC) , Essential hypertension Take 1 tablet by mouth 4 times a day. 360 tablet 3 07/26/2024 07/26/2025 ActiveStart: 00-32-6158tjox 4 tablets by mouth once dailyMetoprolol Tartrate 50 mg tablet Active 200 MG PO Daily October 20, 2023 12:00am Complies with drug therapyStart: 77-63-3552xogg 200 mg by mouth once dailyMetoprolol Tartrate Active 200 MG PO Daily October 20, 2023 12:00amStart: 78-42-6728tzwj 50 mg by mouth once dailyMetoprolol Tartrate Active 50 MG PO Daily October 20, 2023 12:00amStart: 05-25-2022 End: 93-60-4505wjup 2 tablets by mouth in the morningmetoprolol tartrate (Lopressor) 50 MG tablet Take 100 mg by mouth in the morning and 100 mg before b edtime. 04/23/2023 ActiveStart: 34-29-1430ggau 1 tablet by mouth twice daily metoprolol tartrate, short acting, (LOPRESSOR) 50 mg tablet Take 50 mg by mouth twice daily. 05/25/2022 ActiveStart: 07-29-2020 End: 76-98-4117nvar 1 tablet by mouth twice dailymetoprolol tartrate, short acting, (LOPRESSOR) 25 mg tablet Take 25 mg by mouth twice daily. 0 07/29/2020 ActiveComment on above:Take 25 mg by mouth twice daily.Take 50 mg by mouth twice daily.montelukast 10 mg oral tablet (5 sources)Leukotriene Receptor AntagonistStart: 05-25-2023 End: 25-19-3634pdjj 1 tablet by mouth once daily at bedtimemontelukast (Singulair) 10 mg tablet Take 1 tablet (10 mg) by mouth once daily at bedtime. 0 05/25/2023 05/24/2024 ActiveNaltrexone (15 sources)Opioid AntagonistStart: 01-19-2022 End: 36-95-7648egqp 1 capsule by mouth once dailynaltrexone capsule 1 mg TAKE ONE CAPSULE BY MOUTH DAILY 0 01/19/2022 07/25/2022 DiscontinuedStart: 01-19-2022 take 1 capsule by mouth once dailynaltrexone capsule 1 mg TAKE ONE CAPSULE BY MOUTH DAILY 0 01/19/2022 ActiveComment on above:TAKE ONE CAPSULE BY MOUTH DAILY nitroglycerin 0.4 mg sublingual tablet (20 sources)Nitrate VasodilatorStart: 10-07-2020 End: 35-13-0095lguwtqoccppnj sublingual (NITROQUICK) 0.4 mg SL tablet Dissolve 0.4 mg under the tongue. 0 10/07/2020 07/25/2022 DiscontinuedComment on above: Dissolve 0.4 mg under the tongue.nystatin 037074 unt/ml oral suspension (20 sources)Polyene AntifungalStart: 94-01-2087cgxg 4 mL by mouth four times dailynystatin (MYCOSTATIN) 100,000 unit/mL suspension TAKE 4 ML BY MOUTH / THROAT 4 TIMES A DAY FOR 7 DAYS 11/06/2024 ActiveStart: 07-31-2024 End: 23-67-4545orqk 1 mL by mouth once dailyNystatin 100,000 unit/mL suspension Discontinued 1 ML PO Daily July 31, 2024 12:00am December 12, 2024 10:49am swish and swallowStart: 07-25-2024 End: 51-04-5588uouereur (Mycostatin) 030240 UNIT/ML suspension Indications: Rash and other nonspecific skin eruption Take 4 mL (400,000 Units) by mouth in the morning and 4 mL (400,000 Units) at noon and 4 mL (400,000 Units) in the evening and 4 mL (400,000 Units) before bedtime. Do all this for 14 days. 224 mL 08/08/2024 ActiveStart: 01-27-2024 End: 64-91-3158syuwlnaz (MYCOSTATIN) 100,000 unit/mL suspension Take 5 mL by mouth four times daily for 7 days. SWISH AND SWALLOW 1 TEASPOON(S) (5ML) 4 TIMES PER DAY. 140 mL 01/27/2024 02/03/2024 ActiveStart: 19-95-2924pqqvvbih (Mycostatin) cream Indications: Candidiasis of skin Apply to left armpit BID until clear 15 g 01/15/2023 Activeondansetron 4 mg disintegrating oral tablet (2 sources)Serotonin-3 Receptor AntagonistStart: 24-02-7774odfw 1 tablet by mouth every six hours as needed for nausea and vomitingondansetron ODT (Zofran- ODT) 4 MG disintegrating tablet DISSOLVE 1 TABLET IN MOUTH EVERY 6 HOURS NEEDED FOR NAUSEA AND VOMITING 0 06/27/2023 Activepantoprazole 20 mg delayed release oral tablet (20 sources)Proton Pump InhibitorStart: 82-26-5041gmho 2 tablets by mouth twice dailyPantoprazole 20 mg tablet,delayed release (DR/EC) Active 40 MG PO Twice daily November 13, 2024 11:24am Complies with drug therapyStart: 03-95-9981gxrm 2 tablets by mouth once dailyPantoprazole 20 mg tablet,delayed release (DR/EC) Active 40 MG PO Daily November 13, 2024 11:24am Complies with drug therapyStart: 13-19-7766gwon 1 tablet by mouth at breakfastpantoprazole DR (PROTONIX) 40 mg tablet TAKE 1 TABLET BY MOUTH 1/2 TO 1 HOUR BEFORE MORNING MEAL 10/21/2024 ActiveStart: 07-19-2024 End: 98-98-8952xdlr 1 tablet by mouth once dailyPantoprazole 20 mg tablet,delayed release (DR/EC) Discontinued 20 MG PO Daily July 19, 2024 1:00am November 13, 2024 11:24amStart: 01-26-2024 End: 71-14-5803pegt 1 tablet by mouth once dailypantoprazole (ProtoNix) 40 MG EC tablet Take 40 mg by mouth Daily 01/26/2024 03/16/2024 DiscontinuedStart: 09-22-2023 End: 52-46-5802hzgz 1 tablet by mouth once dailyPantoprazole 40 mg tablet,delayed release (DR/EC) Discontinued 40 MG PO Daily 30 22 04September 22, 2023 12:00am October 20, 2023 1:07pm Take 1 tablet orally once a day.phentermine hydrochloride 37.5 mg oral tablet (20 sources)Sympathomimetic Amine AnorecticStart: 04-26-2023 End: 23-99-9144bhhh 1 tablet by mouth before mealtimephentermine (Adipex-P) 37.5 MG tablet Take 37.5 mg by mouth in the morning. Take before meals. 05/26/2023 ActiveComment on above:Take 1 tablet by mouth daily before breakfast for 30 days.Take 1 tablet by mouth daily before breakfast for 90 days.pilocarpine hydrochloride 5 mg oral tablet (12 sources)Cholinergic Receptor AgonistStart: 07-12-2024 End: 03-41-5723eqys 1 tablet by mouth three times dailypilocarpine (SALAGEN) 5 mg tablet TAKE 1 TABLET BY MOUTH THREE TIMES A DAY 135 tablet 1 08/07/2024 0 09/06/2024 ActivepredniSONE 10 mg oral tablet (20 sources)Start: 59-34-3567ghrvxpRZIS (DELTASONE) 10 mg tablet Indications: Other systemic lupus erythematosus with other organ involvement (HCC) Take 40mg daily x 3, decrease by 5mg every 3days until taking 10mg daily with food thereafter (no oral nsaids) 120 tablet 1 01/23/2025 ActiveStart: 06-22-2024 End: 14-25-8162vggoulVCKA (DELTASONE) 10 mg tablet Indications: Other systemic lupus erythematosus with other organ involvement (HCC) Take 40mg daily x 3, decrease by 5mg every 3days until taking 10mg daily with food thereafter (no oral nsaids) 120 tablet 1 10/07/2024 ActiveStart: 01-12-2024 End: 28-62-5530jgxtlmTKOZ (DELTASONE) 10 mg tablet Indications: Other systemic lupus erythematosus with other organ involvement (HCC) Take 40mg daily x 3, decrease by 5mg every 3days until taking 10mg daily with food thereafter (no oral nsaids) 120 tablet 1 01/12/2024 03/17/2024 DiscontinuedStart: 10-20-2023 take 2 tablets by mouth once dailyPrednisone 10 mg tablet Active 20 MG PO Daily October 20, 2023 12:00am Complies with drug therapyStart: 05-12-2023 End: 55-15-8248mieh 1 tablet by mouth once dailyPrednisone 10 mg tablet Active 10 MG PO Daily October 20, 2023 12:00am Complies with drug therapyStart: 05-12-2023 End: 69-00-3707jhadezHLEI (DELTASONE) 10 mg tablet Indications: Other systemic lupus erythematosus with other organ involvement (HCC) Take 40mg daily x 5days, then decrease 5mg every 5days until 10mg daily thereafter 120 tablet 1 05/12/2023 10/05/2023 DiscontinuedStart: 02-22-5235varpxgPDVO (DELTASONE) 10 mg tablet Indications: Other systemic lupus erythematosus with other organ involvement (HCC) Take 40mg daily x 5days, then decrease 5mg every 5days until 10mg daily thereafter 120 tablet 1 08/17/2022 ActiveStart: 06-01-2022 End: 32-36-3628uxbd 1 tablet by mouth once dailypredniSONE (DELTASONE) 10 mg tablet Take 10 mg by mouth once daily. 0 06/01/2022 08/17/2022 Discontinued Start: 05-06-2021 End: 65-44-9800wawjebCZRU (DELTASONE) 5 mg tablet Indications: Other systemic lupus erythematosus with other organinvolvement (HCC) Day 1=6tabs with food, Day 2=5tabs, Day 3=4tabs, Day 4=3tabs, Day 5=2tabs, Day 6=1tab, No NSAIDs on med 21 tablet 1 10/24/2021 ActiveComment on above:Day 1=6tabs with food, Day 2=5tabs, Day 3=4tabs, Day 4=3tabs, Day 5=2tabs, Day 6=1tab, No NSAIDs onmedTake 10 mg by mouth once daily.Take 40mg daily x 5days, then decrease 5mg every 5days until 10mg daily dmlxkyfoov8927 ml sodium chloride 9 mg/ml injection (1 source)Start: .9 % sodium chloride infusiontacrolimus 0.001 mg/mg topical ointment (20 sources)Calcineurin Inhibitor ImmunosuppressantStart: 08-16-2023 End: 38-29-1116izotdfqcie (Protopic) 0.1 % ointment 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 08/16/2023 Activethiamine 100 mg oral tablet (20 sources)Start: 63-52-9053ibyp 1 tablet by mouth once daily as neededThiamine Hcl (Vitamin B1) 100 mg tablet Active MG PO Daily as needed December 12, 2024 12:00am Complies with drug therapyStart: 06-01-2023 End: 60-36-8412knbs 1 tablet by mouth once dailyThiamine Hcl (Vitamin B1) 100 mg tablet Active 100 MG PO Daily December 12, 2024 12:00am Complies with drug therapytopiramate 25 mg oral tablet (20 sources)Start: 04-26-2023 End: 71-02-6156dcim 1 tablet by mouth twice dailytopiramate (TOPAMAX) 25 mg tablet Indications: Other chronic pain Take 1 tablet by mouth two times a day. 180 tablet 05/26/2023 03/18/2024 Discontinued (Course of therapy completed) Comment on above:Take 1 tablet by mouth two times a day.tretinoin 0.25 mg/ml topical cream (20 sources)RetinoidStart: 77-63-9009kptfhkaor (Retin-A) 0.025 % cream Indications: Acne vulgaris Apply to face, once daily at evening/night time, 30 day supply 45 g 11/23/2024 ActiveStart: 50-25-5151bkrnhdwzu (Retin-A) 0.05 % cream Indications: Striae atrophic Apply to face, once daily at evening/night time, 30 day supply 20 g 11 07/15/2023 ActiveVitamin D 50 MCG (1999 UT) (4 sources)take 1 tablet by mouth every weekVitamin D 50 MCG (1999) 1 tablet Orally weekly Active Completed/Discontinued Medications MedicationDrug Class(es)DatesSig (Normalized)Sig (Original)acyclovir 400 mg oral tablet (20 sources)Herpesvirus Nucleoside Analog DNA Polymerase Inhibitor, Herpes Simplex Virus Nucleoside Analog DNA Polymerase Inhibitor, Herpes Zoster Virus Nucleoside Analog DNA Polymerase InhibitorStart: 10-03-2021 End: 96-00-3196bzjy 1 tablet by mouth once dailyacyclovir (ZOVIRAX) 400 mg tablet Take 400 mg by mouth once daily. 0 10/03/2021 04/26/2023 Discontinued (Discontinued by Patient)Comment on above:Take 400 mg by mouth once daily. ALPRAZolam 0.25 mg oral tablet (20 sources)BenzodiazepineStart: 06-24-2023 End: 25-49-9355bbyc 1 tablet by mouth once daily as needed for anxietyAlprazolam 0.25 mg tablet Discontinued 0.25 MG PO Daily as needed for anxiety October 20, 2023 12:00am July 31, 2024 4:04pmamLODIPine 5 mg oral tablet (8 sources)Dihydropyridine Calcium Channel BlockerStart: 02-03-2024 End: 22-57-2089vngq 1 tablet by mouth once dailyamLODIPine (Norvasc) 5 MG tablet Take 5 mg by mouth Daily 02/03/2024 03/16/2024 DiscontinuedStart: 10-07-2020 take 1 tablet by mouth once dailyamLODIPine (NORVASC) 2.5 MG tablet Take 1 tablet by mouth daily 30 tablet 3 10/07/2020 ActiveazaTHIOprine 50 mg oral tablet (20 sources)Purine AntimetaboliteStart: 05-24-2023 End: 16-59-2889zoyf 1 tablet by mouth three times dailyAzathioprine 50 mg tablet Discontinued 50 MG PO Three times daily October 20, 2023 12:00am October 11:22amStart: 05-24-2023 End: 53-89-2405akgh 3 tablets by mouth once dailyazaTHIOprine (Imuran) 50 MG tablet Take 150 mg by mouth Daily 05/24/2023 02/28/2025 Discontinued (Therapy completed)Start: 98-20-8315qkev 50 mg by mouth twice dailyAzathioprine Active 50 MG PO Twice daily October 20, 2023 12:00amStart: 77-60-1496nvfm 3 tablets by mouth three times dailyazaTHIOprine (Imuran) 50 mg tablet Take 3 tablets (150 mg) by mouth 3 times a day. 02/16/2023 ActiveStart: 11-24-2022 End: 01-84-2199noyd 3 tablets by mouth once daily at mealtimeazaTHIOprine (IMURAN) 50 mg tablet Indications: Other systemic lupus erythematosus with other organinvolvement (HCC) , Encounter for assisted 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 TAKE 3 TABLETS BY MOUTH DAILY WITH FOOD. HOLD IF ON ANTIBIOTICS OR ILL. 90 tablet 3 02/16/2023 ActiveStart: 08-19-2022 End: 09-88-1694phcy 2 tablets by mouth once daily at mealtimeazaTHIOprine (IMURAN) 50 mg tablet Indications: Other systemic lupus erythematosus with other organinvolvement (HCC) , Encounter for assisted current use of azathioprine Take 2tab daily by mouth with food. Hold if on antibiotics or ill. 60 tablet 3 08/19/2022 11/24/2022 DiscontinuedStart: 06-15-2022 End: 50-58-7904fspg 1 tablet by mouth once daily at mealtimeazaTHIOprine (IMURAN) 50 mg tablet Indications: Other systemic lupus erythematosus with other organinvolvement (HCC) Take 1tab daily by mouth with food. Hold if on antibiotics or ill. 30 tablet 3 06/15/2022 08/19/2022 DiscontinuedComment on above:Take 1tab daily by mouth with food. Hold if on antibiotics or ill.Take 2tab daily by mouth with food. Hold if on antibiotics or ill.Take 3tab daily by mouth with food. Hold if on antibiotics or ill.TAKE 3 TABLETS BY MOUTH DAILY WITH FOOD. HOLD IF ON ANTIBIOTICS OR ILL.belimumab (20 sources)B Lymphocyte Stimulator-specific InhibitorStart: 11-13-2024 End: 84-12-6457wbxcdglmn (Benlysta) Discontinued IV every month November 13, 2024 12:00am March 13, 2025 9:07amStart: 23-06-3879rynjyzddg (Benlysta) Active IV every month November 13, 2024 12:00am Complies with drug therapyStart: 11-13-2024 Start: 02-04-2023 End: 36-31-6666phdppx 200 mg by subcutaneous injection every weekBelimumab (Benlysta) 200 mg/mL auto-injector Discontinued 200 MG SUBCUT every week October 20, 2023 12:00am November 13, 2024 11:23amComment on above:Inject 200mg (1 pen) subcutaneously once weeklybelimumab 1,275 mg in NaCl 0.9% 250 mL (BENLYSTA) (3 sources)Start: 11-16-2024 End: ,275 mg (10 mg/kg/dose 127.5 kg), INTRAVENOUS, at 250 mL/hr, Administer over 60 Minutes, ONCE, 1 dose, On Wed11/16/24 at 1400, Total Volume - EXP: 11/16/20242199 RT Protect From LightStart: 10-19-2024 End: ,275 mg (10 mg/kg/dose 127.5 kg), INTRAVENOUS, at 250 mL/hr, Administer over 60 Minutes, ONCE, 1 dose, On Wed10/19/24 at 1430, Total Volume - EXP: 10/19/20242204 RT Protect From LightStart: 2024 End: ,275 mg (10 mg/kg/dose 127.5 kg), INTRAVENOUS, at 250 mL/hr, Administer over 60 Minutes, ONCE, 1 dose, On Wed10/04/24 at 1430, EXP: 10/04/20242034 RT Protect From Lightbelimumab 1,307 mg in NaCl 0.9% 250 mL (BENLYSTA) (2 sources)Start: 01-11-2025 End: ,307 mg (10 mg/kg/dose 130.7 kg), INTRAVENOUS, at 250 mL/hr, Administer over 60 Minutes, ONCE, 1 dose, On Wed01/11/25 at 1430, Total Volume - EXP: 01/11/20252204 RT Protect From LightStart: 12-14-2024 End: ,307 mg (10 mg/kg/dose 130.7 kg), INTRAVENOUS, at 250 mL/hr, Administer over 60 Minutes, ONCE, 1 dose, On Wed12/14/24 at 1430, Total Volume - EXP: 12/14/2024 2015 RT Protect From Lightbelimumab 1,318 mg in NaCl 0.9% 250 mL (BENLYSTA) (1 source)Start: 09-18-2024 End: ,318 mg (10 mg/kg/dose 131.8 kg), INTRAVENOUS, at 125 mL/hr, Administer over 120 Minutes, ONCE, 1 dose, On 09/18/24 at 1400, Total Volume - EXP: 09/18/2024 1935 RT Protect From Lightbiotin 10 mg oral tablet (20 sources) End: 47-08-2058Axkiys 10 mg tab 2 0 04/26/2023 Discontinued (Discontinued by Patient)Comment on above:2cephalexin 500 mg oral capsule (13 sources)Cephalosporin AntibacterialStart: 02-27-2025 End: 81-02-1719bjkm 1 capsule by mouth three times dailyCephalexin 500 mg capsule Discontinued 500 MG PO Three times daily February 28, 2025 12:00am March 13, 2025 9:07amStart: 06-15-2024 End: 87-13-5714zqat 1 capsule by mouth in the morningcephalexin (Keflex) 500 MG capsule Indications: Cyst, breast, sebaceous, left Take 1 capsule (500 mg) by mouth in the morning and 1 capsule (500 mg) before bedtime. Do all this for 7 days. 14 nugmdem9606/15/2024 06/22/2024 ActiveStart: 73-03-6418gknfnzkcbv (Keflex) 500 MG capsule Indications: Postoperative stitch abscess Take 1 tablet twice a day x 7 days 14 capsule 0 01/07/2023 ActiveKeflex Activecetirizine hydrochloride 10 mg oral capsule (3 sources)Histamine-1 Receptor Antagonist End: 03-04-1415Rbqfeaosjh (ZYRTEC) 10 mg cap Take by mouth. 0 02/25/2022 Discontinued (Course of therapy completed)take 1 tablet by mouth once daily cetirizine (ZYRTEC ALLERGY) 10 MG tablet Take 10 mg by mouth daily 0 Active Comment on above:Take by mouth.dexamethasone 2 mg oral tablet (9 sources)CorticosteroidStart: 01-20-2024 End: 41-77-1516eetNYDMDrifml (Decadron) 2 MG tablet Indications: Lumbosacral radiculopathy at L5 2mg 3 pills po X3days,2 pills po daily X3 days , then 1 pill po daily X3 days then stop 9 days 18 pills 18 tablet 1 01/20/2024 03/16/2024 Discontinueddicyclomine hydrochloride 10 mg oral capsule (20 sources)AnticholinergicStart: 01-25-2024 End: 65-26-5893iqao 1 capsule by mouth in the morning, then take 1 capsule by mouth in the evening, then take 1 capsule by mouth at bedtimedicyclomine (Bentyl) 10 MG capsule Take 10 mg by mouth in the morning and 10 mg in the evening and 10 mg before bedtime. 01/25/2024 03/16/2024 DiscontinuedStart: 09-22-2023 End: 35-05-2593srmi 1 capsule by mouth twice daily as needed for painDicyclomine 10 mg capsule Discontinued 10 MG PO Twice daily as needed for abdominal pain 60 30 5 September 22, 2023 12:00am October 20, 2023 1:07pm Take 1 capsule orally twice a day prndiphenhydrAMINE (15 sources)Histamine-1 Receptor AntagonistStart: 01-24-2025 End: 03-45-261762 mg, INTRAVENOUS, ONCE, 1 dose, On Wed01/24/25 at 0930Start: 01-11-2025 End: 61-83-6620ptjk 1 dose by mouth once25 mg, ORAL, ONCE, 1 dose, On Wed01/11/25 at 1430Start: 12-14-2024 End: 79-96-4360unsn 1 dose by mouth once25 mg, ORAL, ONCE, 1 dose, On Wed12/14/24 at 1430Start: 11-29-2024 End: 57-97-577698 mg, INTRAVENOUS, ONCE, 1 dose, On Wed11/29/24 at 1000Start: 11-16-2024 End: 58-33-1044zhnd 1 dose by mouth once25 mg, ORAL, ONCE, 1 dose, On Wed11/16/24 at 1400Start: 10-31-2024 End: 45-81-247028 mg, INTRAVENOUS, ONCE, 1 dose, On Wed10/31/24 at 1000Start: 05-29-2025 End: 81-21-2259pzpw 1 dose by mouth once25 mg, ORAL, ONCE, 1 dose, On Wed10/19/24 at 1430Start: 2024 End: 46-25-0385vaam 1 dose by mouth once25 mg, ORAL, ONCE, 1 dose, On Wed10/04/24 at 1430Start: 10-02-2024 End: 88-51-624242 mg, INTRAVENOUS, ONCE, 1 dose, On Wed10/02/24 at 0900Start: 09-18-2024 End: 87-04-1672grwc 1 dose by mouth once25 mg, ORAL, ONCE, 1 dose, On Wed09/18/24 at 1300Start: 09-06-2024 End: 95-36-430189 mg, INTRAVENOUS, ONCE, 1 dose, On Wed09/06/24 at 0930Start: 08-08-2024 End: 37-36-081537 mg, INTRAVENOUS, ONCE, 1 dose, On Wed08/08/24 at 0930Start: 07-11-2024 End: 03-92-980349 mg, INTRAVENOUS, ONCE, 1 dose, On Wed07/11/24 at 0900Start: 06-13-2024 End: 23-91-863434 mg, INTRAVENOUS, ONCE, 1 dose, On Wed06/13/24 at 1000Start: 05-19-2024 End: 38-00-509719 mg, INTRAVENOUS, ONCE, 1 dose, On Wed05/19/24 at 1000 famotidine 20 mg oral tablet (18 sources)Histamine-2 Receptor AntagonistStart: 04-10-2024 End: 22-50-8706rjix 1 tablet by mouth at bedtimefamotidine (Pepcid) 20 MG tablet Indications: LPRD (laryngopharyngeal reflux disease) Take 1 tablet(20 mg) by mouth at bedtime 90 tablet 04/10/2024 09/04/2024 Discontinued (Therapy completed)Start: 07-21-2020 End: 27-02-2119bnve 1 tablet by mouth once daily at bedtimefamotidine (PEPCID) 20 mg tablet Take 20 mg by mouth daily at bedtime. 0 07/21/2020 10/24/2021 Disco ntinuedtake 1 tablet by mouth twice daily as neededfamotidine (PEPCID) 20 mg tablet Take 1 tablet (20 mg total) by mouth 2 (two) times a day as needed. ActiveComment on above:Take 20 mg by mouth daily at bedtime.gentamicin 0.001 mg/mg topical ointment (20 sources)Start: 11-22-2023 End: 80-65-4945Qfvubfldet 0.1 % ointment Discontinued 1 APPLIC TOPICAL Three times daily 15 10 0 November 22, 2023 12:00am December 16, 2023 2:12pmhydrocortisone 100 mg injection (9 sources)CorticosteroidStart: 01-24-2025 End: 37-59-988258 mg, INTRAVENOUS, ONCE, 1 dose, On Wed01/24/25 at 0930Start: 11-29-2024 End: 20-49-407529 mg, INTRAVENOUS, ONCE, 1 dose, On Wed11/29/24 at 1000Start: 10-31-2024 End: 47-59-071067 mg, INTRAVENOUS, ONCE, 1 dose, On Wed10/31/24 at 1000Start: 10-02-2024 End: 66-23-446646 mg, INTRAVENOUS, ONCE, 1 dose, On Wed10/02/24 at 0900Start: 09-06-2024 End: 95-42-985236 mg, INTRAVENOUS, ONCE, 1 dose, On Wed09/06/24 at 0930Start: 08-08-2024 End: 53-29-792357 mg, INTRAVENOUS, ONCE, 1 dose, On Wed08/08/24 at 0930Start: 07-11-2024 End: 17-78-532040 mg, INTRAVENOUS, ONCE, 1 dose, On Wed07/11/24 at 0900Start: 06-13-2024 End: 52-44-605435 mg, INTRAVENOUS, ONCE, 1 dose, On Wed06/13/24 at 1000Start: 05-19-2024 End: 57-25-533571 mg, INTRAVENOUS, ONCE, 1 dose, On Wed05/19/24 at 1000immune globulin (human) (IgG) 35 g in empty bag Total Volume 350 mL (GAMMAGARD) (8 sources)Start: 11-29-2024 End: g (rounded from 34.72 g = 0.4 [...] 5 mL/kg/hr unless signs or symptoms of reactionStart: 10-31-2024 End: g (rounded from 34.72 g = 0.4 [...] 5 mL/kg/hr unless signs or symptoms of reactionStart: 10-02-2024 End: g (rounded from 34.72 g = 0.4 g/kg/dose 86.8 kg Treatment plan adjusted weight), INTRAVENOUS, ONCE, 1 dose, On Wed10/02/24 at 0930, EXP: 2024 0910 RT Refrigerate - Prepared as a 10% solution- Brand: Lot: Total Volume., Infusion regimen: Standard, Starting rate (mL/kg/h r): 0.5 mL/kg/hr, Rate after 30 min (mL/kg/hr): 1 mL/kg/hr, Titration rate/max: Increase by 1 mL/kg/hr every 30 minutes thereafter to a max of 5 mL/kg/hr unless signs or symptoms of reactionStart: 09-06-2024 End: g (rounded from 34.72 g = 0.4 g/kg/dose 86.8 kg Treatment plan adjusted weight), INTRAVENOUS, ONCE, 1 dose, On Wed09/06/24 at 1000, EXP: 09/08/2024 0930 RT Refrigerate - Prepared as a 10% solution- Brand: Lot: Total Volume., Infusion regimen: Standard, Starting rate (mL/kg/h r): 0.5 mL/kg/hr, Rate after 30 min (mL/kg/hr): 1 mL/kg/hr, Titration rate/max: Increase by 1 mL/kg/hr every 30 minutes thereafter to a max of 5 mL/kg/hr unless signs or symptoms of reactionStart: 08-08-2024 End: g (rounded from 34.72 g = 0.4 g/kg/dose 86.8 kg Treatment plan adjusted weight), INTRAVENOUS, ONCE, 1 dose, On Wed08/08/24 at 1000, EXP: 08/10/2024 0920 RT Refrigerate - Prepared as a 10% solution- Brand: Lot: Total Volume., Infusion regimen: Standard, Starting rate (mL/kg/h r): 0.5 mL/kg/hr, Rate after 30 min (mL/kg/hr): 1 mL/kg/hr, Titration rate/max: Increase by 1 mL/kg/hr every 30 minutes thereafter to a max of 5 mL/kg/hr unless signs or symptoms of reactionStart: 07-11-2024 End: g (rounded from 34.72 g = 0.4 [...] 5 mL/kg/hr unless signs or symptoms of reactionStart: 06-13-2024 End: g (rounded from 34.72 g = 0.4 [...] 5 mL/kg/hr unless signs or symptoms of reactionStart: 05-19-2024 End: g (rounded from 34.72 g = 0.4 g/kg/dose 86.8 kg Treatment plan adjusted weight), INTRAVENOUS, ONCE, 1 dose, On Wed05/19/24 at 1030, EXP: 0945 05/21/24 Refrigerate - Prepared as a 10% solution - Brand: Lot: Total Volume., Infusion regimen: Standard, Starting rate (mL/kg/hr):0.5 mL/kg/hr, Rate after 30 min (mL/kg/hr): 1 mL/kg/hr, Titration rate/max: Increase by 1 mL/kg/hr every 30 minutes thereafter to a max of 5 mL/kg/hr unless signs or symptoms of reactionimmune globulin (human) (IgG) 35 g in empty bag Total Volume 350 mL (GAMUNEX-C) (1 source)Start: 01-24-2025 End: g (rounded from 34.72 g = 0.4 g/kg/dose 86.8 kg Treatment plan adjusted weight), INTRAVENOUS, ONCE, 1 dose, On Wed01/24/25 at 1000, EXP: Refrigerate - Prepared as a 10% solution - Brand: Lot: Total Volume., Infusion regimen: Standard, Starting rate (mL/kg/hr): 0.5 mL/kg/hr, Rate after 30 min (mL/kg/hr): 1 mL/kg/hr, Titration rate/max: Increase by 1 mL/kg/hr every 30 minutesthereafter to a max of 5 mL/kg/hr unless signs or symptoms of reactionitraconazole 100 mg oral capsule (3 sources)Azole AntifungalStart: 04-03-2024 End: 52-72-9431ajvh 1 capsule by mouth once dailyitraconazole (Sporanox) 100 MG capsule Indications: Oral thrush Take 1 capsule (100 mg) by mouth Daily for 5 days 5 capsule 04/03/2024 04/08/2024 Expiredomeprazole 40 mg delayed release oral capsule (20 sources)Proton Pump InhibitorStart: 03-16-2024 End: 65-41-7273jyjg 1 capsule by mouth once dailyOmeprazole 40 mg capsule,delayed release(DR/EC) Discontinued 40 MG PO Daily 30 30 3 March 16, 2024 12:00am July 19, 2024 10:52amStart: 08-09-2020 End: 47-07-9650aezr 1 capsule by mouth twice dailyomeprazole (PRILOSEC) 40 mg capsule Indications: Gastroesophageal reflux disease, unspecified whether esophagitis present Take 1 capsule by mouth twice daily. 30 capsule 2 08/09/2020 02/25/2022 Discontinued (Course of therapy completed)take 2 capsules by mouth once dailyomeprazole (PRILOSEC) 20 MG delayed release capsule Take 40 mg by mouth daily 0 ActiveComment on above:Take 1 capsule by mouth twice daily. pravastatin sodium 20 mg oral tablet (20 sources)HMG-CoA Reductase InhibitorStart: 01-26-2024 End: 63-90-5215fjdb 1 tablet by mouth once dailypravastatin (Pravachol) 20 MG tablet Take 20 mg by mouth Daily 01/26/2024 03/16/2024 DiscontinuedStart: 10-20-2023 End: 72-72-7449vxsu 1 tablet by mouth once dailyPravastatin 20 mg tablet Discontinued 20 MG PO Daily October 20, 2023 12:00am October 20, 2023 1:08pmStart: 70-90-7867thff 1 tablet by mouth once dailypravastatin (Pravachol) 20 MG tablet TAKE 1 TABLET BY MOUTH EVERY DAY FOR 30 DAYS 0 06/24/2023 Activepregabalin 100 mg oral capsule (20 sources)Start: 12-15-2023 End: 29-16-5829yzth 1 capsule by mouth in the morning, then take 1 capsule by mouth in the evening, then take 1 capsule by mouth at bedtimepregabalin (Lyrica) 100 MG capsule Indications: Lumbosacral radiculopathy Take 1 capsule (100 mg) by mouth in the morning and 1 capsule (100 mg) in the evening and 1 capsule (100 mg) before bedtime. 90 capsule 2 12/15/2023 03/16/2024 DiscontinuedStart: 15-12-1872joth 3 capsules by mouth once daily as needed for painPregabalin 75 mg capsule Active 225 MG PO Daily as needed for nerve pain October 20, 2023 12:00am Complies with drug therapyStart: 33-99-7743lkoi 225 mg by mouth once daily Pregabalin Active 225 MG PO Daily October 20, 2023 12:00amStart: 74-01-0551aekg 1 capsule by mouth three times dailypregabalin (Lyrica) 100 MG capsule Indications: Lumbosacral radiculopathy TAKE 1 CAPSULE BY MOUTH THREE TIMES A DAY for 30 90 capsule 2 07/06/2023 ActiveStart: 10-13-2021 End: 87-87-7613gxlt 1 capsule by mouth three times dailypregabalin (LYRICA) 75 mg capsule Indications: Fibromyalgia take 1 capsule by mouth three times a day 270 capsule 3 03/02/2023 ActiveLyrica ActiveComment on above:TAKE 1 CAPSULE BY MOUTH 3 TIMES A DAY FOR 30 DAYSTAKE 1 CAPSULE BY MOUTH 3 TIMES A DAYtake 1 capsule by mouth three times a dayPRENATAL VIT/IRON FUMARATE/FA ( VITAMIN ORAL) (2 sources) End: 99-76-0894wwlw 1 tablet by mouth once dailyPRENATAL VIT/IRON FUMARATE/FA ( VITAMIN ORAL) Take 1 tablet by mouth once daily. 0 02/25/2022 Discontinued (Course of therapy completed)take 1 tablet by mouth once daily VIT/IRON FUMARATE/FA ( VITAMIN ORAL) Take 1 tablet by mouth once daily. 0 ActiveComment on above:Take 1 tablet by mouth once daily. rivaroxaban 15 mg oral tablet (9 sources)Factor Xa InhibitorStart: 12-06-2023 End: 01-34-5529mnsc 1 tablet by mouth at mealtimeXarelto 15 MG tablet Take 15 mg by mouth in the evening. Take with meals 12/06/2023 03/16/2024 Discontinued simvastatin 20 mg oral tablet (20 sources)HMG-CoA Reductase InhibitorStart: 03-10-2022 End: 24-47-9033ewgnjizrprh (ZOCOR) 20 mg tabletterbinafine 250 mg oral tablet (3 sources)Allylamine AntifungalStart: 04-02-2024 End: 00-68-5735ktxh 1 tablet by mouth once dailyterbinafine (LamISIL) 250 MG tablet Indications: Oral thrush Take 1 tablet (250 mg) by mouth Daily for 5 days 5 tablet 04/02/2024 04/03/2024 Discontinuedtriamcinolone acetonide 10 mg/ml injectable suspension (20 sources)CorticosteroidStart: 02-14-2025 End: 23-28-0079ixiekbxwwqaho acetonide (Kenalog) injection 2.5 mgStart: 02-14-2025 End: .5 mg, Intra-lesional, Once, On Wed02/14/25 at 1545, For 1 dose Start: 66-19-5272jimubndfcwmwl acetonide (Kenalog) injection 2.5 mgStart: 25-93-5408Ffebzntpfuwzb Acetonide 0.025 % lotion 1 application 06/23/2022 Active triamcinolone acetonide (KENALOG) 0.025 % lotion Apply 1 Application topically as needed. Activevitamin b12 1 mg/ml injectable solution (17 sources)Vitamin I78Zezpp: 11-29-2024 End: 87-00-2690wowfor 1 dose by intramuscular injection once1,000 mcg, INTRAMUSCULAR, ONCE, 1 dose, On Wed11/29/24 at 1000Start: 10-31-2024 End: 84-56-8843dwqtey 1 dose by intramuscular injection once1,000 mcg, INTRAMUSCULAR, ONCE, 1 dose, On Wed10/31/24 at 1000Start: 10-02-2024 End: 79-44-0309tmtqsv 1 dose by intramuscular injection once1,000 mcg, INTRAMUSCULAR, ONCE, 1 dose, On Wed10/02/24 at 0900Start: 09-06-2024 End: 00-01-1577zrtaal 1 dose by intramuscular injection once1,000 mcg, INTRAMUSCULAR, ONCE, 1 dose, On Wed09/06/24 at 1000Start: 08-08-2024 End: 66-58-2855irbkou 1 dose by intramuscular injection once1,000 mcg, INTRAMUSCULAR, ONCE, 1 dose, On Wed08/08/24 at 0930Start: 07-11-2024 End: 54-18-7771ththta 1 dose by intramuscular injection once1,000 mcg, INTRAMUSCULAR, ONCE, 1 dose, On Wed07/11/24 at 0900Start: 06-13-2024 End: 94-13-3494yhomow 1 dose by intramuscular injection once1,000 mcg, INTRAMUSCULAR, ONCE, 1 dose, On Wed06/13/24 at 1000Start: 04-26-2024 End: 29-43-2557loiwyi 1 dose by intramuscular injection once1,000 mcg, INTRAMUSCULAR, ONCE, 1 dose, On Wed04/26/24 at 0930Start: 03-23-2024 End: 33-19-3780pobnpi 1 dose by intramuscular injection once1,000 mcg, INTRAMUSCULAR, ONCE, 1 dose, On Delmi 03/23/24 at 1030Start: 02-21-2024 End: 69-10-1399fwxkrq 1 dose by intramuscular injection once1,000 mcg, INTRAMUSCULAR, ONCE, 1 dose, On Wed02/21/24 at 1100Start: 01-25-2024 End: 24-26-1862anntai 1 dose by intramuscular injection once1,000 mcg, INTRAMUSCULAR, ONCE, 1 dose, On Wed01/25/24 at 1130Start: 09-02-5264plmiur 1 mL by subcutaneous injection every 30 dayscyanocobalamin (VITAMIN B-12) 1,000 mcg/mL injection Inject 1 mL (1,000 mcg total) under the skin every 30 (thirty) days. 12/28/2023 ActiveStart: 12-27-2023 End: 37-07-8731zbclpuirluzcfn 1,000 mcg injectionStart: 11-29-2023 End: 53-74-9320qjxdjthqzrvvab 1,000 mcg injectionStart: 10-27-2023 End: 93-90-0039kckkqmzkwstmvw 1,000 mcg injectionStart: 09-30-2023 End: 59-62-9842zijbdpqrqcxwcy 1,000 mcg injection Problems Active Problems Problem ClassificationProblemDateDocumented DateEpisodic/ChronicAbdominal pain (20 sources)Finding of sensation of abdomen; Translations: [Unspecified abdominal pain]53-76-7407EmolzebaMvnenet disorders (20 sources)Anxiety; Translations: [Anxiety disorder, unspecified]Onset: 412218-63-4931GoqhkzeAnvqlflpo infection; unspecified site (3 sources)Bacterial infection due to Pseudomonas; Translations: [Other bacterial infections of unspecified site]Onset: 027061-67-3031Nefiiufw Cardiac dysrhythmias (20 sources)Postural orthostatic tachycardia syndrome ; Translations: [POTS (postural orthostatic tachycardia syndrome)]Onset: 31-15-1201GayfornIvjufrvsel and other anemia (9 sources)Anemia of chronic disease; Translations: [Anemia in other chronic diseases classified elsewhere]ChronicDeficiency and other anemia (1 source)Anemia in other chronic diseases classified elsewhere; Translations: [Anemia of chronic disease]Onset: 60-03-4096WexnhwvMgzbnqyqy of lipid metabolism (20 sources)Hyperlipidemia; Translations: [Hyperlipidemia, unspecified]Onset: 043316-59-2038MpdxpjqTeozuflhhr disorders (20 sources)Laryngopharyngeal reflux; Translations: [Gastro-esophageal reflux disease without esophagitis]Onset: 364267-37-7186SyjbgspWfotnexka hypertension (20 sources)Essential hypertension; Translations: [Essential (primary) hypertension]Onset: 320153-19-2843FocaufeLrrdt of unknown origin (1 source)Pyrexia of unknown origin; Translations: [Fever, unspecified] 60-16-2978AzgrdgdoBnbsddgw disorders (20 sources)Hypogammaglobulinemia; 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]Onset: 763536-67-8601NodhteqUnezcfeokm infection (20 sources)Clostridium difficile diarrhea; Translations: [Enterocolitis due to Clostridium difficile, not specified as recurrent]Onset: EpisodicMalaise and fatigue (20 sources)Malaise and fatigue; Translations: [Chronic fatigue, unspecified] Onset: 02-13-7389FfuyufcSvhfehg and fatigue (4 sources)Malaise and fatigue; Translations: [Other malaise]Onset: 11-29-2024 15-11-1640HpcoilitYoccmcgxj disorders (20 sources)Excessive and frequent menstruation with irregular cycle; Translations: [Menometrorrhagia]Onset: 06-92-7453ToxdgwdAwzr disorders (20 sources)Recurrent depression; Translations: [Major depressive disorder, recurrent, unspecified]Onset: 917586-71-0247GwgpwkwDqrvepn (3 sources)Candidiasis of mouth; Translations: [Candidal stomatitis]04-02-2024 EpisodicNeoplasms of unspecified nature or uncertain behavior (2 sources)Neoplasm of uncertain behavior of skin; Translations: [Neoplasm of uncertain behavior of skin]19-84-1373VqxptwrdFlfiidgrwzqm breast conditions (20 sources)Mammary duct ectasia; 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]Onset: 643296-01-4203VivegbcFqdutwiknjsz breast conditions (20 sources)Discharge from nipple; Translations: [Nipple discharge]Onset: 658100-63-2600LqebbhefScvqkghyjjq deficiencies (20 sources)Vitamin D deficiency; Translations: [Vitamin D deficiency, unspecified]Onset: 36-12-4480BvxuyfqGynsrxoxbkszqq (20 sources)Degenerative joint disease involving multiple joints; 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]Onset: 06-88-6324IuxqmquJjdpxkgbcegu (20 sources)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; Translations: [Other osteoporosis without current pathological fracture]Onset: ChronicOther aftercare (3 sources)Drug therapy status; Translations: [Encounter for 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 of azathioprine]EpisodicOther aftercare (1 source)Polypharmacy ; Translations: [Other assisted (current) drug therapy] EpisodicOther aftercare (1 source)Long-term current use of drug therapy; Translations: [Encounter for 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 of azathioprine]17-25-2116ArycpxkqItkut circulatory disease (20 sources)Raynaud's disease; Translations: [Raynaud's syndrome without gangrene]Onset: 365990-21-7707BnwmesgNlhnz circulatory disease (2 sources)Spider nevus; Translations: [Nevus, non-neoplastic]77-40-3051Qpeylixk Other congenital anomalies (1 source)Peter-Danlos syndrome; 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, unspecified]65-70-2853OonlurcRqpah connective tissue disease (1 source)Pain in left foot; Translations: [Pain in left foot]Onset: 09-14-2018 EpisodicOther connective tissue disease (1 source)Pain in right foot; Translations: [Pain in right foot]Onset: 76-12-3735WaprpgqzDbpwb connective tissue disease (20 sources)Paraparesis; Translations: [Other symptoms and signs involving the musculoskeletal system]Onset: 204394-93-3428PgmpqcyuDtgvm connective tissue disease (3 sources)Pain of bilateral hands; Translations: [Pain in right hand]10-05-2023 EpisodicOther ear and sense organ disorders (2 sources)Pain of ear structure; Translations: [Otalgia, right ear]04-10-2024 EpisodicOther female genital disorders (2 sources)Abnormal uterine bleeding; Translations: [Abnormal uterine and vaginal bleeding, unspecified]39-15-2650XtflkewWraeu gastrointestinal disorders (20 sources)Diarrhea; Translations: [Diarrhea, unspecified]Onset: 03-07-2024 35-39-4369MopcxmjdAxdpm gastrointestinal disorders (3 sources)Diarrhea, unspecified; Translations: [Diarrhea]84-26-4884Qjmcuqpw Other gastrointestinal disorders (17 sources)Abdominal mass; Translations: [Intra-abdominal and pelvic swelling, mass and lump, unspecified site]43-29-1009SxsxcgrhCwowl gastrointestinal disorders (17 sources)Burning sensation; Translations: [Other specified symptoms and signs involving the digestive systemand abdomen]46-29-1031LuyqnpivVyilq gastrointestinal disorders (17 sources)Abdominal bloating; Translations: [Abdominal distension (gaseous)] 36-76-7328XhqriginOkvmp gastrointestinal disorders (17 sources)Constipation; Translations: [Constipation, unspecified]12-12-2024 EpisodicOther inflammatory condition of skin (20 sources)Discoid lupus erythematosus; 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]Onset: 157266-85-2142QmwswbbJcitt inflammatory condition of skin (4 sources)Discoid lupus erythematosus; Translations: [DISCOID LUPUS ERYTHEMATOSUS]Onset: 02-38-8881GyftnlgNelwo inflammatory condition of skin (10 sources)Lupus erythematosus; 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] Onset: 709017-33-7576ViubxytWwjbx inflammatory condition of skin (2 sources)Lupus erythematosus tumidus; 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]93-87-8474VmbhadlTcgyg inflammatory condition of skin (2 sources)Seborrheic dermatitis; Translations: [Other seborrheic dermatitis] 22-42-3942CscfxosvFgdxe injuries and conditions due to external causes (1 source)Delayed healing of wound; Translations: [Other injury of unspecified body region, subsequent encounter]EpisodicOther liver diseases (8 sources)Steatosis of liver; Translations: [Fatty (change of) liver, not elsewhere classified]78-96-2970IfxvtnuGjtgw lower respiratory disease (2 sources)Snoring; Translations: [Snoring]EpisodicOther lower respiratory disease (2 sources)Shortness of breath; Translations: [Shortness of breath]Onset: 83-60-4630JktkdtpcBdepn nervous system disorders (20 sources)Chronic pain syndrome; Translations: [Chronic pain syndrome]Onset: 447248-01-8884LfxpxseStrdj nervous system disorders (20 sources)Chronic pain; Translations: [Other chronic pain]34-50-7176Ivhfmpj Other nervous system disorders (20 sources)Disorder of autonomic nervous system; Translations: [Disorder of the autonomic nervous system, unspecified]Onset: 513066-61-1640JmlzefoVxngx nervous system disorders (13 sources)Other chronic pain; Translations: [Other chronic pain]Onset: 644202-94-8770ZjgfcokFbufu nervous system disorders (1 source)Numbness; Translations: [Anesthesia of skin]76-97-9547PvjqblcjCqpat nervous system disorders (4 sources)Cold extremity; Translations: [Unspecified disturbances of skin sensation]36-52-5015QfghvhqkRwpor non-traumatic joint disorders (1 source)Hypermobility syndrome; Translations: [Other specific joint derangements of unspecified joint, not elsewhere classified]24-94-9547Blkkqwp Other non-traumatic joint disorders (1 source)Other specific joint derangements of unspecified joint, not elsewhere classified; 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]Onset: 09-19-2024 ChronicOther nutritional; endocrine; and metabolic disorders (20 sources)Obesity; Translations: [Obesity, unspecified]23-36-2400KccvbspSdyym nutritional; endocrine; and metabolic disorders (20 sources)Body mass index 40+ - severely obese; Translations: [Morbid (severe) obesity due to excess calories]Onset: 14-44-4304YzdwigrWqvbk nutritional; endocrine; and metabolic disorders (20 sources)Insulin resistance; Translations: [Insulin resistance, unspecified] Onset: 621962-60-5523IjiykfcNyvoc nutritional; endocrine; and metabolic disorders (2 sources)Morbid obesity; Translations: [Morbid (severe) obesity due to excess calories]52-80-3078EexpvxgJuscr nutritional; endocrine; and metabolic disorders (2 sources)Morbid (severe) obesity due to excess calories; Translations: [Morbid (severe) obesity due to excess calories (Multi)]Onset: 94-39-4569CbmowhqCwsna skin disorders (5 sources)Hidradenitis suppurativa; Translations: [Hidradenitis suppurativa] 70-52-3340NuaghxylUmlod skin disorders (4 sources)Acne vulgaris; Translations: [Acne vulgaris]45-99-9605RsuimedbNhfbp upper respiratory disease (20 sources)Chronic pharyngolaryngitis; Translations: [Chronic laryngitis]Onset: 415550-42-7992CggimweYszcyff cyst (1 source)Unspecified ovarian cyst, left side; Translations: [UNSPECIFIED OVARIAN CYST LEFT SIDE]Onset: 31-58-1658PgpeozfwWojjvcqbyr and visceral atherosclerosis (2 sources)Peripheral vascular disease; Translations: [Peripheral vascular disease, unspecified]86-26-8449OqxklhqLovclekm codes; unclassified (20 sources)Obstructive sleep apnea syndrome; Translations: [Obstructive sleep apnea (adult) (pediatric)]Onset: 68-61-6378KpwchrhKhxfkwbd codes; unclassified (3 sources)Obstructive sleep apnea (adult) (pediatric); Translations: [Obstructive sleep apnea (adult) (pediatric)]Onset: 82-94-2154FkwvmbnRmtvjoyx codes; unclassified (1 source)Family history of hereditary disease; Translations: [Family history of other specified conditions]EpisodicResidual codes; unclassified (1 source)Family history of malignant neoplasm of breast; Translations: [FAMILY HX MALIG NEOPLASM OF BREAST]Onset: 00-22-3830JwtcadcqFugzdshp codes; unclassified (1 source)Family history of malignant neoplasm of digestive organs; Translations: [FAM HX MALIG NEOPLASM DIGESTIV ORGN]Onset: 05-98-9029Xxbnjfnn Residual codes; unclassified (1 source)Bilateral lower limb edema; Translations: [Localized edema]07-13-2023 EpisodicResidual codes; unclassified (1 source)Finding of mouth region; Translations: [Unspecified symptoms and signs involving general sensationsand perceptions]39-21-2323DozrftcaXvrmaeeu codes; unclassified (1 source)FH: Cardiovascular disease; Translations: [Family history of ischemic heart disease and other diseases of the circulatory system]10-90-9416Vshpjmkz Residual codes; unclassified (2 sources)Family history of cancer; Translations: [Family history of malignant neoplasm, unspecified]46-13-5773NfnkvltqUhivnxid codes; unclassified (1 source)FH: Respiratory disease; Translations: [Family history of other diseases of the respiratory system]35-21-4552QudgabfvSiobhmgm codes; unclassified (1 source)FH: Aortic aneurysm; Translations: [Family history of ischemic heart disease and other diseases of the circulatory system]63-66-6602AcqeiqowYppguhri codes; unclassified (2 sources)Pain; Translations: [Pain, unspecified]21-26-6859XeulnxagEgcuenibll arthritis and related disease (3 sources)Rheumatoid arthritis; Translations: [Rheumatoid arthritis, unspecified]Onset: 524620-08-0470QhotqikSiat and subcutaneous tissue infections (7 sources)Pilonidal cyst; Translations: [Pilonidal cyst without abscess]Onset: 441633-65-7104GwknvvnbHzvdflwyhwe; intervertebral disc disorders; other back problems (20 sources)Bilateral inflammation of sacroiliac joint; Translations: [Sacroiliitis, not elsewhere classified]Onset: 102806-60-4280Efzqocj Spondylosis; intervertebral disc disorders; other back problems (20 sources)Chronic low back pain; Translations: [Lumbago with sciatica, left side]Onset: 82-22-3543XhdebaniDzzhmclpt-related disorders (20 sources)Tobacco user; Translations: [Nicotine dependence, unspecified, uncomplicated]Onset: 983260-90-0637JosdffeOuleqjtp lupus erythematosus and connective tissue disorders (20 sources)Systemic lupus erythematosus; Translations: [Other organ or system involvement in systemic lupus erythematosus]Onset: 62-05-6059OjzorkqPgawzqu disorders (20 sources)Thyroid nodule; Translations: [Nontoxic single thyroid nodule]Onset: 915455-39-6499HxagvjsPjuefcylvofi (1 source)Supraventricular tachycardia, unspecified (CMS-HCC); Translations: [Supraventricular tachycardia, unspecified (CMS-HCC)]Onset: 07-13-2023 Unclassified (8 sources)Call Dr. Donaldson office to schedule a follow up appointment if you do not already have one scheduled Past or Other Problems Problem ClassificationProblemDateDocumented DateEpisodic/ChronicCardiac dysrhythmias (20 sources)Tachycardia, unspecified; Translations: [Tachycardia]Onset: 10-15-2021 Resolved: 89-86-9444IivfbixaAawv; stupor; and brain damage (20 sources)Daytime somnolence; Translations: [Somnolence]Onset: 05-20-2022 EpisodicConditions associated with dizziness or vertigo (20 sources)Dizziness; Translations: [Dizziness and giddiness]Onset: 06-01-2023 36-12-9893DpqjuzjhTaiyiyyvna and other anemia (20 sources)Megaloblastic anemia due to vitamin B>12< deficiency; Translations: [Other megaloblastic anemias, not elsewhere classified]Onset: 03-04-2022 30-02-9840SpojlhslXbarkoomjy and other anemia (1 source)Anemia, unspecified; Translations: [ANEMIA UNSPECIFIED]Onset: 18-24-6923WkjpimwrAfqeloegmn and other anemia (20 sources)Anemia; Translations: [Anemia, unspecified]Onset: 03-11-2022 91-89-7972OcegxhwjVvdevdvojk and other anemia (20 sources)Iron deficiency anemia; Translations: [Other iron deficiency anemias]Onset: 826602-82-3399PbityzprThxtnskkiy and other anemia (1 source)Other iron deficiency anemias; Translations: [Other iron deficiency anemia]Onset: 41-36-7567QxizcxrdBhibzbueuy and other anemia (1 source)Other megaloblastic anemias, not elsewhere classified; Translations: [Megaloblastic anemia due to vitamin B12 deficiency]Onset: 47-16-1391Cigziiai Diabetes mellitus without complication (20 sources)Increased glucose level; Translations: [Other abnormal glucose] Onset: 78-64-2283NdeflwbwEkmutzde of mouth; excluding dental (20 sources)Oral lesion; Translations: [Unspecified lesions of oral mucosa] Onset: 186799-72-1875JzpadrlzT Codes: Fall (1 source)Fall on same level from slipping, tripping and stumbling without subsequent striking against object, initial encounter; Translations: [FALL SAME LVL SLIP NO STRK OBJ INIT]Onset: 98-28-7306MpjnyhtsLmtpkfjs; including migraine (20 sources)Headache; Translations: [Nonintractable episodic headache]Onset: 508015-55-6346SfomcpqaGrrneficuhtiy and screening for infectious disease (20 sources)Anti-nuclear factor positive; Translations: [Other specified abnormal immunological findings in serum]Onset: 71-25-9567OfvzscryCulna disorders and dislocations; trauma-related (1 source)Unspecified subluxation of right patella, initial encounter; Translations: [UNS SUBLUXATION RT PATELLA INITIAL]Onset: 71-70-7123Qltiujye Lymphadenitis (20 sources)Lymphadenopathy; Translations: [Enlarged lymph nodes, unspecified] Onset: 029313-57-3205DpzcztvsJhjvrtjzrhu deficiencies (20 sources)Cobalamin deficiency; Translations: [Deficiency of other specified B group vitamins]Onset: 35-19-4074BfxjttwbDprpx aftercare (20 sources)Drug therapy finding; Translations: [Other rn long term care (current) drug therapy]Onset: 60-45-6812RmsndvseZmalf aftercare (20 sources)H/O: high risk medication; Translations: [Other rn long term care (current) drug therapy]Onset: 037420-60-3950CzzbvfhhMsecj aftercare (1 source)Other assisted (current) drug therapy; Translations: [OTH MCFP 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 THERAPY]Onset: 36-72-4094UswpzlyuMvwun aftercare (20 sources)Long-term current use of systemic steroid; Translations: [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 designer (current) use of systemic steroids]Onset: 283858-07-2783VgfrztmuQcymw connective tissue disease (20 sources)Pain in toe; Translations: [Pain in right toe(s)]Onset: 03-05-2021 EpisodicOther connective tissue disease (20 sources)Fibromyalgia; Translations: [Fibromyalgia]Onset: 69-49-7926Ajjfkdjf Other connective tissue disease (20 sources)Other symptoms and signs involving the musculoskeletal system; Translations: [Other musculoskeletalsymptoms referable to limbs]Onset: 259815-86-4319RzapfwnfQbuyw connective tissue disease (20 sources)Enthesopathy of hip region; Translations: [Other specified enthesopathies of unspecified lower limb, excluding foot]Onset: 07-06-2023 01-30-8397OunevnkiAjkpl connective tissue disease (20 sources)Muscle pain; Translations: [Myalgia, unspecified site]Onset: 722511-03-8628SpoefcxkIflmj connective tissue disease (2 sources)Pain in lower limb; Translations: [Pain in leg, unspecified] 70-46-9009YrrarrvqIbwbp hematologic conditions (20 sources)ESR raised; Translations: [Elevated erythrocyte sedimentation rate] Onset: 95-66-0424EooahlrvXekvj hematologic conditions (9 sources)Elevated erythrocyte sedimentation rate; Translations: [ELEVATED ERYTHROCYTE SED RATE]Onset: 03-05-2021 Resolved: 55-56-5225UqrwbhwsKgtxp infections; including parasitic (20 sources)Disorder due to infection; Translations: [Personal history of other infectious and parasitic diseases]Onset: 996234-96-9027KimmozodYcgci infections; including parasitic (1 source)Personal history of other infectious and parasitic diseases; Translations: [Frequent infections]Onset: 81-39-7571FjgldjzhFjbpe injuries and conditions due to external causes (3 sources)Unspecified injury of right lower leg, initial encounter; Translations: [UNS INJURY RT LOWER LEG INITIAL ENC]Onset: 35-39-7746Yavrvjnx Other lower respiratory disease (20 sources)Dyspnea; Translations: [Shortness of breath]Onset: 07-13-2023 10-47-9006DtgkgultGkapn nervous system disorders (20 sources)Ataxia; Translations: [Ataxia, unspecified]Onset: 05-31-2014 76-76-0928KulylrahHuuav nervous system disorders (20 sources)Skin sensation disturbance; Translations: [Unspecified disturbances of skin sensation]Onset: 475876-67-6182GipkhxvkHpwgc nervous system disorders (20 sources)Paresthesia; Translations: [Paresthesia of skin]Onset: 11-08-2023 28-26-1973XdsbhrsoNwiub non-traumatic joint disorders (20 sources)Hip pain; Translations: [Pain in unspecified hip]Onset: 07-06-2023 00-66-6566YglzaukqIfioh non-traumatic joint disorders (5 sources)Pain in right knee; Translations: [PAIN IN RIGHT KNEE]Onset: 23-57-4570NrisxayoVnovp non-traumatic joint disorders (1 source)Effusion, right knee; Translations: [EFFUSION RIGHT KNEE]Onset: 77-05-6794TcmcaiumHotcp non-traumatic joint disorders (20 sources)Bilateral wrist pain; Translations: [Pain in right wrist]Onset: 790639-18-8857JhbeotfvNeonh nutritional; endocrine; and metabolic disorders (20 sources)Obese class II; Translations: [Obesity, unspecified]Onset: 03-09-2022 Resolved: 821290-83-1887RljdgovYvjgo nutritional; endocrine; and metabolic disorders (20 sources)Body mass index 30+ - obesity; Translations: [Obesity, unspecified] Onset: 05-31-2014 Resolved: 654539-06-1243VhfkaidPugke nutritional; endocrine; and metabolic disorders (20 sources)History of nutritional deficiency; Translations: [Personal history of other endocrine, nutritional and metabolic disease]Onset: 10-05-2023 75-58-4624QginqeieTbfat screening for suspected conditions (not mental disorders or infectious disease) (20 sources)Elevated C-reactive protein; Translations: [Elevated C-reactive protein (CRP)]Onset: 16-46-8731QlucghqcCyrfb skin disorders (20 sources)Eruption; Translations: [Rash and other nonspecific skin eruption] Onset: 66-81-7391NaokxobmThrsq skin disorders (20 sources)Loss of hair; Translations: [Nonscarring hair loss, unspecified] Onset: 76-12-9686IpauddokAkbrt upper respiratory disease (20 sources)Hoarse; Translations: [Dysphonia]Onset: 286352-65-3437Rtkobtgu Residual codes; unclassified (20 sources)FH: Crohn's disease; Translations: [Family history of other diseases of the digestive system]Onset: 82-83-1431MbssjuxdHusefelb codes; unclassified (3 sources)Flushing; Translations: [FLUSHING]Onset: 10-15-2021 Resolved: 90-25-4093RfzzibwqVwotuqad codes; unclassified (1 source)Family history of ischemic heart disease and other diseases of the circulatory system; Translations: [Family history of aortic aneurysm]Onset: 52-67-6441ZtfbclcfSjeopruvhfxh (2 sources)Onset: 07-13-2023 Resolved: 160709-43-5033Hnrcurqpukwb (1 source)Supraventricular tachycardia, unspecified (CMS-HCC); Translations: [Supraventricular tachycardia, unspecified (CMS-HCC)]Onset: 39-02-8820Dgejj infection (20 sources)Cytomegaloviral disease, unspecified; 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 [address] [place] [address] USAUrine cultureOrdered By: Gay De La Torre on 03-09-2025 Bacteria identified Cx Nom (U)2 DaysPremier Health Miami Valley HospitalUrine Cultureon 53-37-6845Udkumbta identified Cx Nom (U)ORGANISM: Christine albicans (O:CANALB) [place] Count >100,000 PERFORMED BY: [place] [address] PATHOLOGIST EMPLOYEE OPERATIONS EXAMINER TIM FOOTE M.D.[facility] Physician GroupComment on above: Performed By: #### CUU #### [facility] [address] [place] [address] USAUrine cultureOrdered By: Jose Perez on 03-03-2025 Bacteria identified Cx Nom (U)Christine albicansAbnormalPremier Health Miami Valley HospitalAerobic Cultureon 24-37-9687Eyyyjmz CultureComment pilonidal abscess culture ORGANISM: Serratia marcescens (O:SERMAR) Quantity of Growth Light Growth Comment pilonidal abscess culture ORGANISM: Anaerobe isolated (O:CHRISTIAN) Comments . Quantity of Growth Light Growth Send Test to Ref. Lab Sent to [facility] for CHRISTIAN ID Please contact Microbiology within 7 days if anaerobic susceptibilities are needed. Comment pilonidal abscess culture Gram Stain Result 1+ Gram Positive Cocci 2+ White Blood Cells Aerobic ELPIDIO Charge (NMIC56) SUSCEPTIBILITY ORGANISM: O:SERMAR ANTIBIOTIC INTERPRETATION ELPIDIO Amikacin S <16 Aztreonam I <4 Cefepime S <2 Ceftazidime I <1 Ceftazidime/Avibactam S <4 Ceftolozane/Tazobactam S <2 Ceftriaxone I <1 Ciprofloxacin R >2 Ertapenem S <0.5 Gentamicin S <2 Levofloxacin S <0.5 Meropenem S <1 Meropenem/Vaborbactam S <2 Piperacillin/Tazobactam I <8 Tetracycline R >8 Tigecycline S <2 Tobramycin S <2 Trimethoprim/Sulfamethoxazole S <0.5 S = SUSCEPTIBLE I = [...] RESISTANT TO ALL B-LACTAM DRUGS. PERFORMED BY: [place] [address] PATHOLOGIST EMPLOYEE OPERATIONS EXAMINER TIM FOOTE M.D.NormalPam Health Specialty Hospital Of Jacksonville Physician GroupComment on above: Performed By: #### AERC #### [place] [address] USAAerobic cultureOrdered By: Terence Blum on 03-02-2025 Bacteria identified Aer cx Nom (Unsp spec)Serratia marcescensAbnormalPremier Health Miami Valley HospitalGram stain microscopyOrdered By: Terence Blum on 24-71-8953Amzmeahaqzx observation Gram stain Nom (Unsp spec)[facility] HospitalLon 03-02-2025L Specimen: [id number] Received: 03/05/25 Status: BAIRON Burchniko Num: [id number] Spec Type: Surgical Subm Dr: Terence Blum MD Tissues: A Pilonidal Cyst (PRODUCT OF DEBRIDEMENT) Procedures: Rios SCHWARTZ/Yohan L3 Age/ Patient Sex Location Account Attending Physician Ariadna Haley 44/F [place] [id number] Terence Blum MD SPEC NUM: [id number] RECD: 03/05/25 STATUS: BAIRON GARCIA NUM: [id number] EDITA: 03/02/[address] [facility] [address]: Terence Blum MD ENTERED: 03/05/[address] [facility] [address]: DANIELLA TYPE: Surgical DEPT: S ENTERED BY: [id number] RECV BY: [id number] ORDERED: HE/2, Gross/Micro L3 ORDERED: HE/2, Gross/Micro L3 Pathological Diagnosis Pilonidal cyst, excision: Histopathologic features consistent with a pilonidal cyst. Clinical Information Pilonidal cyst Gross Description Part A is received in formalin labeled with the patients date of , and [place], products of debridement are 2 saini-rivera, wrinkled, non-oriented ellipses of skin, 0.3 x 1.1 cm, and 0.2 x 1.2 cm. The longer ellipse is inked blue with the shorter ellipse inked black. Sectioning reveals saini-rivera, dull and uniform cut surfaces. The polar tips are submitted intact in A1 with the bisected center of each specimen submitted in A2. (2, ns, [id number] A) CPT Codes 66654 Specimen: [id number] Received: 03/05/25 Status: BAIRON Garcia Num: [id number] Spec Type: Surgical Subm Dr: Terence Blum MD Tissues: A Pilonidal Cyst (PRODUCT OF DEBRIDEMENT) Procedures: HE/2, Gross/Micro L3 Patient: Ariadna Haley [id number] (Continued) Signed (signature on file) Merry Grajeda MD 03/06/25 1111 [facility] Physician GroupUrine Cultureon 09-40-4098Mjhnvabg identified Cx Nom (U)20,000 colonies/ml mixed bacterial skin contaminants including mixed gram negative bacilli - 2 Days PERFORMED BY: [facility] [address] [place] [address] PATHOLOGIST EMPLOYEE OPERATIONS EXAMINER TIM FOOTE M.D.[facility] Physician GroupComment on above: Performed By: #### CUU #### [facility] [address] StreetUrine cultureOrdered By: Mathew Ji on 02-26-2025 Bacteria identified Cx Nom (U)bacilli - 2 DaysPremier Health Miami [facility] Hospital CBC W Auto Differential panel (Bld)on 51-95-5599Swmvwfpdr (Bld) [#/Vol]0.09 10*3/uLNormal<0.11CMary Rutan HospitalComment on above:Order Comment: Specimen Type: BLOOD SPECIMENOrdering Facility: [facility] Address:[address] [place], [place] [address]Performed By: #### 26848-3 ####[facility] LABCLIA [id number] [place], [place] [address]Yhadvjbua/100 WBC (Bld)0.7 %NormalOhio State University [facility] on above:Order Comment: Specimen Type: BLOOD SPECIMENOrdering Facility: [facility] Address:[address] [place], [place] [address]Performed By: #### 16452-3 ####[facility] LABCLIA [id number] [place], [place] [address]Fdpfhequkdug cell count method Nom (Bld)AutoNormalCChillicothe Hospital on above:Order Comment: Specimen Type: BLOOD SPECIMENOrdering Facility: [facility] Address:[address] [place], [place] [address]Performed By: #### 86965-4 ####[facility] LABCLIA [id number] [place], [place] [address]Ggnmfjkeogi (Bld) [#/Vol]0.11 10*3/uLNormal<0.46[facility] on above:Order Comment: Specimen Type: BLOOD SPECIMENOrdering Facility: [facility] Address:[address] [place], [place] [address]Performed By: #### 21133-7 ####[facility] LABCLIA [id number] [place], [place] [address]Tqnshtuenww/100 WBC (Bld)0.8 %NormalOhio State University [facility] on above:Order Comment: Specimen Type: BLOOD SPECIMENOrdering Facility: [facility] Address:[address] [place], [place] [address]Performed By: #### 07401-7 ####[facility] LABCLIA [id number] [place], [place] [address]Xagmsriiwwq distribution width (RBC) [Ratio]14.3 %Normal 11.5-15.0[facility] on above:Order Comment: Specimen Type: BLOOD SPECIMENOrdering Facility: [facility] Address:[address] [place], [place] [address]Performed By: #### 23906-1 ####[facility] LABIA [id number] [place] [address] Hematocrit (Bld) [Volume fraction]46.0 %Nlagpb17.0-46.0[facility] on above:Order Comment: Specimen Type: BLOOD SPECIMENOrdering Facility: [facility] Address:[address] [place], [place] [address]Performed By: #### 24345-0 ####[facility] LABIA [id number] [place], [place] [address]Zwpyrvuwxn (Bld) [Mass/Vol]15.1 g/pJNhhzfi98.5-15.5CChillicothe Hospital on above:Order Comment: Specimen Type: BLOOD SPECIMENOrdering Facility: [facility] Address:[address] [place], [place] [address]Performed By: #### 00611-1 ####[facility] LABIA [id number] [place], [place] [address]Fpsxemii granulocytes (Bld) [#/Vol]0.21 10*3/uLHigh<0.10 [facility] on above:Order Comment: Specimen Type: BLOOD SPECIMENOrdering Facility: [facility] Address:[address] [place], [place] [address]Performed By: #### 66332-3 ####[facility] LABIA [id number] [place], [place] [address]Zfzbyruk granulocytes/100 WBC (Bld)1.6 %NormalOhio State University [facility] on above: Order Comment: Specimen Type: BLOOD SPECIMENOrdering Facility: [facility] Address:[address] [place], [place] [address]Performed By: #### 19377- 8 ####[facility] LABCLIA [id number] [place], [place] [address]Jdpyiccglom (Bld) [#/Vol]1.89 10*3/uLNormal1.00-4.00 [facility] on above:Order Comment: Specimen Type: BLOOD SPECIMENOrdering Facility: [facility] Address:[address] [place], [place] [address]Performed By: #### 37242-6 ####[facility] LABCLIA [id number] [place], [place] [address]Lkdhhwvrtpw/100 WBC (Bld)14.4 %NormalOhio State University [facility] on above:Order Comment: Specimen Type: BLOOD SPECIMENOrdering Facility: [facility] Address:[address] [place], [place] [address]Performed By: #### 00128-0 ####[facility] LABCLIA [id number] [place], [place] [address]TQQ (RBC) [Entitic mass]31.7 lxKgfviz91.0-34.0[facility] on above:Order Comment: Specimen Type: BLOOD SPECIMENOrdering Facility: [facility] Address:[address] [place], [place] [address]Performed By: #### 52575-2 ####[facility] LABCLIA [id number] [place], [place] [address]PVYM (RBC) [Mass/Vol]32.8 g/qREcagej28.5-36.0[facility] on above: Order Comment: Specimen Type: BLOOD SPECIMENOrdering Facility: [facility] Address:[address] [place], [place] [address]Performed By: #### 55893- 8 ####[facility] LABIA [id number] [place], [place] [address]TEQ (RBC) [Entitic vol]96.4 fJVwsbcb80.0-100.0[facility] on above:Order Comment: Specimen Type: BLOOD SPECIMENOrdering Facility: [facility] Address:[address] [place], [place] [address]Performed By: #### 56478-7 ####[facility] LABCLIA [id number] [place], [place] [address]Pcudrwphg (Bld) [#/Vol]0.92 10*3/uLHigh<0.87[facility] on above:Order Comment: Specimen Type: BLOOD SPECIMENOrdering Facility: [facility] Address:[address] [place], [place] [address]Performed By: #### 08669- 8 ####[facility] LABCLIA [id number] [place], [place] [address]Wxepyyflp/100 WBC (Bld)7.0 %NormalOhio State University [facility] on above:Order Comment: Specimen Type: BLOOD SPECIMENOrdering Facility: [facility] Address:[address] [place], [place] [address]Performed By: #### 00898-7 ####[facility] LABIA [id number] [place], [place] [address]Dlebcdwzsmn (Bld) [#/Vol]9.94 10*3/uLHigh1.45-7.50[facility] on above:Order Comment: Specimen Type: BLOOD SPECIMENOrdering Facility: [facility] Address:[address] [place], [place] [address]Performed By: #### 68252-7 ####[facility] LABCLIA [id number] [place], [place] [address]Lvhycqpxjtl/100 WBC (Bld)75.5 %NormalOhio State University [facility] on above:Order Comment: Specimen Type: BLOOD SPECIMENOrdering Facility: [facility] Address:[address] [place], [place] [address]Performed By: #### 22161-4 ####[facility] LABCLIA [id number] [place], [place] [address]Pasivuluv RBC (Bld) [#/Vol] 10*3/uLNormal<0.01[facility] on above:Order Comment: Specimen Type: BLOOD SPECIMENOrdering Facility: [facility] Address:[address] [place], [place] [address]Performed By: #### 28527-0 ####[facility] LABCLIA [id number] [place], [place] [address]Dhmjluuiz RBC/100 WBC (Bld) [Ratio]0.0 /100 WBCNormal [facility] on above:Order Comment: Specimen Type: BLOOD SPECIMENOrdering Facility: [facility] Address:[address] [place], [place] [address]Performed By: #### 85497-7 ####[facility] LABIA [id number] [place], [place] [address]Lvldyfro mean volume (Bld) [Entitic vol]9.9 fLNormal9.0-12.7CChillicothe Hospital on above:Order Comment: Specimen Type: BLOOD SPECIMENOrdering Facility: [facility] Address:[address] [place] [address] Performed By: #### 73535-1 ####[facility] LABCLIA [id number] [place], [place] [address]Itkccwlam (Bld) [#/Vol]305 10*3/wSCfzeho066-557LpknjmacmOhio State University [facility] on above:Order Comment: Specimen Type: BLOOD SPECIMENOrdering Facility: [facility] Address:[address] [place], [place] [address]Performed By: #### 87571-2 ####[facility] LABCLIA [id number] [place], [place] [address]GRY (Bld) [#/Vol]4.77 10*6/uLNormal3.90-5.20[facility] on above:Order Comment: Specimen Type: BLOOD SPECIMENOrdering Facility: [facility] Address:[address] [place], [place] [address]Performed By: #### 45976-7 ####[facility] LABCLIA [id number] [place], [place] [address]NCK (Bld) [#/Vol]13.16 10*3/uLHigh3.70-11.00[facility] on above: Order Comment: Specimen Type: BLOOD SPECIMENOrdering Facility: [facility] Address:[address] [place], [place] [address]Performed By: #### 23464- 8 ####[facility] LABCLIA [id number] [place], [place] [address]KYBBIAcp 66-01-6769DSXGTHYdphuaTfskpkwup Clinic [place] CNPNon 54-47-9743HDRBYytuvuOkjorpuwm Clinic ClevelandComprehensive metabolic 2000 panelon 32-83-6685Atylfhv [Mass/Vol]4.3 g/dLNormal3.9-4.9CChillicothe Hospital on above:Order Comment: Specimen Type: BLOOD SPECIMENOrdering Facility: [facility] Address:[address] [place], [place] [address]Performed By: #### 88192-6 ####[facility] LABCLIA [id number] [place], [place] [address]EQM [Catalytic activity/Vol]83 U/HYimivz00-624MtyamgjneOhio State University [facility] on above:Order Comment: Specimen Type: BLOOD SPECIMENOrdering Facility: [facility] Address:[address] [place], [place] [address]Performed By: #### 14653-3 ####[facility] LABCLIA [id number] [place], [place] [address]UQL [Catalytic activity/Vol]49 U/LHigh7-38[facility] on above:Order Comment: Specimen Type: BLOOD SPECIMENOrdering Facility: [facility] Address:[address] [place], [place] [address]Performed By: #### 59044-0 ####[facility] LABCLIA [id number] KERRI JAMAGGYHONORHEALTH SONORAN CROSSING [place]AMAY[place] [address]Aoxqo gap [Moles/Vol]17 mmol/LHigh8-15[facility] on above:Order Comment: Specimen Type: BLOOD SPECIMENOrdering Facility: [facility] Address:[address] [place], [place] [address]Performed By: #### 43718- 8 ####[facility] LABCLIA [id number] [facility] NEISHAHONORHEALTH SONORAN CROSSING MEDICAL CENTERCAYEDNDESERT [place], [place] [address]EVF [Catalytic activity/Vol]20 U/YOkkatf03-56QhnlwledlOhio State University [facility] on above:Order Comment: Specimen Type: BLOOD SPECIMENOrdering Facility: [facility] Address:[address] [place], [place] [address]Performed By: #### 50457-3 ####[facility] CENTERDAPHNE [facility] LABCLIA [id number] [facility] [place], [place] [address]Bhsapsiiy [Mass/Vol]0.3 mg/dLNormal0.2-1.3CChillicothe Hospital on above:Order Comment: Specimen Type: BLOOD SPECIMENOrdering Facility: [facility] Address:[address] [place], [place] [address]Performed By: #### 70032- 8 ####[facility] LABCLIA [id number] KERRI JA DRIVERHONORHEALTH SONORAN CROSSING MEDICAL CENTERAMAYAKNIGHTSTOWN, [place] [address]Ybmdzsb [Mass/Vol]10.2 mg/dLNormal8.5-10.2CChillicothe Hospital on above:Order Comment: Specimen Type: BLOOD SPECIMENOrdering Facility: [facility] Address:[address] [place], [place] [address]Performed By: #### 53827-2 ####[facility] LABCLIA [id number] [place], [place] [address]Cuhcwyqq [Moles/Vol]101 mmol/HMijjhb92-009OstqlytycOhio State University [facility] on above: Order Comment: Specimen Type: BLOOD SPECIMENOrdering Facility: [facility] Address:[address] [place], [place] [address]Performed By: #### 25069- 8 ####[facility] LABCLIA [id number] [place], [place] [address]TK6 [Moles/Vol]20 mmol/QPan59-25YwnxexfesOhio State University [facility]xner Medical [facility] on above:Order Comment: Specimen Type: BLOOD SPECIMENOrdering Facility: [facility] Address:[address] [place], [place] [address]Performed By: #### 71155-4 ####[facility] LABCLIA [id number] [place], [place] [address]Plohtgrygz [Mass/Vol]0.49 mg/dL Low0.58-0.96[facility] on above:Order Comment: Specimen Type: BLOOD SPECIMENOrdering Facility: [facility] Address:[address] [place], [place] [address]Performed By: #### 85735-6 ####[facility] LABCLIA [id number] [place] [address] eGFRcr SerPlBld CKD-EPI 0538122 mL/min/1.73m???Normal>=60[facility] on above:Order Comment: Specimen Type: BLOOD SPECIMENOrdering Facility: [facility] Address:[address] [place], [place] [address]Result Comment: Estimated Glomerular Filtration Rate (eGFR) is calculated using the 2020 CKD-EPI creatinine equation. This equation utilizes serum creatinine, sex, and age as parameters. The creatinine assay has traceable calibration to isotope dilution-mass spectrometry. Refer to KDIGO guidelines for clinical interpretation. In patients with unstable renal function, e.g. those with acute kidney injury, the eGFR may not accurately reflect actual GFR. Performed By: #### 09755-1 ####[facility] LABCLIA [id number] [place], [place] [address]Djjoeuz [Mass/Vol]248 mg/dLHigh 74-99[facility] on above:Order Comment: Specimen Type: BLOOD SPECIMENOrdering Facility: [facility] Address:[address] [place], [place] [address]Result Comment: The [place] Diabetes Association (ADA) provides guidance for cutoff [...] unequivocal hyperglycemia, results should be confirmed by repeattesting. In a patient with classic symptoms of hyperglycemia or hyperglycemic crisis, random plasmaglucose results greater than or equal to 200 mg/dL meet the criteria for diagnosis of diabetes.Reference: Standards of Medical Care in Diabetes 2016, [place] Diabetes Association. Diabetes Care. 2016.39(Suppl 1).Performed By: #### 41685-2 ####[facility] LABCLIA [id number] [place], [place] [address]Sjcunlwpl [Moles/Vol]4.1 mmol/LNormal3.7-5.1CChillicothe Hospital on above:Order Comment: Specimen Type: BLOOD SPECIMENOrdering Facility: [facility] Address:[address] [place], [place] [address]Performed By: #### 65362-3 ####[facility] LABIA [id number] [place], [place] [address]Kzisbzh [Mass/Vol]7.6 g/dLNormal6.3-8.0[facility] on above:Order Comment: Specimen Type: BLOOD SPECIMENOrdering Facility: [facility] Address:[address] [place], [place] [address]Performed By: #### 05295- 8 ####[facility] LABIA [id number] [place], [place] [address]Rgbdfq [Moles/Vol]138 mmol/UZtbhcp096-519UisnjlincOhio State University Wexner Medical Center on above:Order Comment: Specimen Type: BLOOD SPECIMENOrdering Facility: [facility] Address:[address] [place], [place] [address]Performed By: #### 35746-6 ####[facility] LABCLIA [id number] [place], [place] [address]Tvao nitrogen [Mass/Vol]16 mg/dLNormal7-21[facility] on above:Order Comment: Specimen Type: BLOOD SPECIMENOrdering Facility: [facility] Address:[address] [place], [place] [address]Performed By: #### 73448-8 ####[facility] LABCLIA [id number] [place], [place] [address]Ltndfaro SerPl-mCncon 57-86-9086Jsurdhnj [Mass/Vol]83.6 ng/gNOczpmp64.7-205.1CChillicothe Hospital on above:Order Comment: Specimen Type: BLOOD SPECIMENOrdering Facility: [facility] Address:[address] [place], [place] [address]Performed By: #### 05601-0, 2284-8, 2132-9, 2276-4 ####[facility] LABCLIA [id number] [facility] [id number] [place] [address] [facility] UN[facility]ERSITY OF UTA[facility] HOSPITAL OF AMERICAFolate SerPl-mCncon 92-44-5044Lnwdtn [Mass/Vol]ng/mLNormal>4.7CChillicothe Hospital on above:Order Comment: Specimen Type: BLOOD SPECIMENOrdering Facility: [facility] Address:[address] [place], [place] [address]Result Comment: A result of > 20 ng/mL is not necessarily indicative of a pathologic or treatable condition: it reflects a limitation of the test methodology.Assay reference range: 4.8 to 24.2 ng/mL. Suitable for detection of folate deficiency.Reference:Folate III (Folate III) [package insert V 1.0 [place]]. [facility], [place], [place]: March 2015.Performed By: #### 91670-1, 2284-8, 2131-9, 2275-4 ####[facility] LABCLIA [id number] [place] [address] [place] IMMUNOGLOBULINS,IGG,IGA,IGMon 72-69-8342QeZ [Mass/Vol]184 mg/mBStvpcl27-378 [facility] on above:Order Comment: Specimen Type: BLOOD SPECIMENOrdering Facility: [facility] Address:[address] [place], [place] [address]Performed By: #### SERIMM ####[facility] LABCLIA [id number] [place] [address] [place] AMERICAIgG [Mass/Vol]610 mg/uWUmh369-8363IqxauomrjOhio State University [facility] Medical Center on above:Order Comment: Specimen Type: BLOOD SPECIMENOrdering Facility: [facility] Address:[address] [place], [place] [address]Performed By: #### SERIMM ####[facility] LABCLIA [id number] [place] [address] [place] AMERICAIgM [Mass/Vol]454 mg/dL Trcg93-062UfmklobnwOhio State University [facility] on above:Order Comment: Specimen Type: BLOOD SPECIMENOrdering Facility: [facility] Address:[address] [place], [place] [address]Performed By: #### SERIMM ####[facility] LABCLIA [id number] [place] [address] [place] AMERICAIron and Iron binding capacity panelon 52-80-5806Katn [Mass/Vol]156 ug/yIGesrrh40-841LcvznbemvOhio State University [facility] on above:Order Comment: Specimen Type: BLOOD SPECIMENOrdering Facility: [facility] Address:[address] [place], [place] [address]Performed By: #### 29393- 8, 2284-8, 2131-9, 2275-4 ####[facility] LABCLIA [id number] [address] [place] AMERICAIron binding capacity [Mass/Vol]443 ug/rRYxua149-192TdisgxwhcOhio State University [facility] on above:Order Comment: Specimen Type: BLOOD SPECIMENOrdering Facility: [facility] Address:[address] [place] [address] Performed By: #### 16931-0, 228-8, 2132-01, 2275-08 ####[facility] LABCLIA [id number] [address] [address] [place] AMERICAIron/TIBC [Molar ratio]35.2 %Xsrgnr91.0-57.0[facility] on above:Order Comment: Specimen Type: BLOOD SPECIMENOrdering Facility: [facility] Address:[address] [place], [place] [address]Performed By: #### 53484-6, 8, 2132-01, 2275-08 ####[facility] LABIA [id number] [address] [address] [place] OF AMERICAVit B12 SerPl-mCncon 60-33-1651Yugmzdstd (Vitamin B12) [Mass/Vol]694 pg/uJNtzybv744-8186BzneddfulChillicothe Hospital on above: Order Comment: Specimen Type: BLOOD SPECIMENOrdering Facility: [facility] Address:[address] [place], [place] [address]Performed By: #### 51673- 8, 2284-8, 2132-01, 2275-08 ####[facility] LABCLIA [id number] [address] [address] [place] AMERICACNPNon 64-08-8049YQDMNrsduyVgirubldh Clinic ClevelandHCG ( test) [place].rapid Ql (U)Ordered By: Adolfo Kang on 67-78-6767YKF ( test) Ql (U)Negative [facility] HospitalHCG,Urineon 96-09-6335Vbba HCG ( test) Ql (U)NegativeNormMedical Center Clinic Physician GroupComment on above:Result Comment: PERFORMED BY: [facility] [address] [id number] PATHOLOGIST EMPLOYEE OPERATIONS EXAMINER TIM FOOTE M.D.Performed By: #### UHCG #### [facility] [address] [id number] USABI US BREAST LIMITED LEFTon [id number] US BREAST LIMITED LEFTThis is a summary report. The complete report [...] BI-RADS 3 ELECTRONICALLY SIGNED BY: Yassine Owens M.D.NormalNot AvailableCNPNon 01-18-2025 CNPNNormalOhiohealth [facility]ide [facility] Hospital25([place])D3 SerPl-ncon 79-97-837120- hydroxyvitamin D3 [Mass/Vol]32.2 ng/iHHyylnh74.0-80.0[facility] Comment on above:Order Comment: Specimen Type: BLOOD SPECIMENOrdering Facility: [facility] Address:[address] [place] [address] Performed By: #### 1989-3 ####[facility] LABIA [id number] [place] [address] [place] BLOOD TB SCREENon 01-11-2025M. tuberculosis tuberculin stim IFN-g Ql (Bld) NegativeNormalCChillicothe Hospital on above:Order Comment: Specimen Type: BLOOD SPECIMENOrdering Facility: [facility] Address:[address] [place], [place] [address]Performed By: #### INFTBP ####[facility] LABIA [id number] [place] [address] [place] OF AMERICAMITOGEN MINUS NIL>9.97Normal>=0.50[facility] on above:Order Comment: Specimen Type: BLOOD SPECIMENOrdering Facility: [facility] Address:[address] [place], [place] [address]Performed By: #### INFTBP ####[facility] LABIA [id number] [place] [address] [place] TB GAMMA INTERPRETATIONNormalCleveland [facility] on above:Order Comment: Specimen Type: BLOOD SPECIMENOrdering Facility: [facility] Address:[address] [place], [place] [address]Performed By: #### INFTBP ####[facility] LABIA [id number] [place] [address] [place] AMERICATB NIL0.03 IU/mLNormal<=8.00 [facility] on above:Order Comment: Specimen Type: BLOOD SPECIMENOrdering Facility: [facility] Address:[address] [place], [place] [address]Performed By: #### INFTBP ####[facility] LABIA [id number] [place] [address] [place] AMERICATB1 AG MINUS NIL0.01 IU/mLNormal<0.35[facility] on above:Order Comment: Specimen Type: BLOOD SPECIMENOrdering Facility: [facility] Address:[address] [place], [place] [address]Performed By: #### INFTBP ####[facility] LABCLIA [id number] [address] STATES OF AMERICATB2 AG MINUS NIL0.01 IU/mLNormal<0.35[facility] on above:Order Comment: Specimen Type: BLOOD SPECIMENOrdering Facility: [facility] Address:[address] [place], [place] [address]Performed By: #### INFTBP ####[facility] LABCLIA [id number] [facility] [id number] [place], [place] [address]CB panel Auto (Bld)on 01-11-2025 Erythrocyte distribution width (RBC) [Ratio]14.5 %11.5 - 15.0 %[facility] Hematocrit (Bld) [Volume fraction]41.5 %36.0 - 46.0 %[facility] HospitalHemoglobin (Bld) [Mass/Vol]13.8 g/dL11.5 - 15.5 g/dLBethesda North HospitalInterpretation and review of laboratory resultsAbnormalCThe MetroHealth SystemH (RBC) [Entitic mass]32.2 pg26.0 - 34.0 pgCThe MetroHealth SystemHC (RBC) [Mass/Vol]33.3 g/dL30.5 - 36.0 g/dL [facility] HospitalV (RBC) [Entitic vol]96.7 fL80.0 - 100.0 [facility] Nucleated RBC (Bld) [#/Vol]NINFCSumma Health Wadsworth - Rittman Medical CenterPlatelet mean volume (Bld) [Entitic vol]10.6 fL9.0 - 12.7 fLCSumma Health Wadsworth - Rittman Medical CenterPlatelets (Bld) [#/Vol]265 10*3/uLBethesda North HospitalRBC (Bld) [#/Vol]4.29 10*6/uL3.90 - 5.20 m/uLBethesda North HospitalWBC (Bld) [#/Vol]12.61 10*3/uLHighCleveland ClinicCleveland Clinic Erythrocyte distribution width (RBC) [Ratio]14.5 %Xjzqnl82.5-15.0[facility] on above:Order Comment: Specimen Type: BLOOD SPECIMENOrdering Facility: [facility] Address:[address] [place], [place] [address]Performed By: #### 57326-5 ####[facility] LABIA [id number] [place], [place] [address]Qazmyuzbbp (Bld) [Volume fraction]41.5 %Jdzmem67.0-46.0[facility] on above:Order Comment: Specimen Type: BLOOD SPECIMENOrdering Facility: [facility] Address:[address] [place], [place] [address]Performed By: #### 44339-0 ####[facility] LABIA [id number] [place], [place] [address]Fkbmtxouub (Bld) [Mass/Vol]13.8 g/yNSiojlf39.5-15.5 [facility] on above:Order Comment: Specimen Type: BLOOD SPECIMENOrdering Facility: [facility] Address:[address] [place], [place] [address]Performed By: #### 60582-5 ####[facility] LABIA [id number] [place], [place] [address]JXZ (RBC) [Entitic mass]32.2 wzYxmild17.0-34.0[facility] on above: Order Comment: Specimen Type: BLOOD SPECIMENOrdering Facility: [facility] Address:[address] [place], [place] [address]Performed By: #### 23807- 2 ####[facility] LABIA [id number] [place], [place] [address]YTEL (RBC) [Mass/Vol]33.3 g/aRYzpmos10.5-36.0[facility] on above:Order Comment: Specimen Type: BLOOD SPECIMENOrdering Facility: [facility] Address:[address] [place], [place] [address]Performed By: #### 21874-1 ####[facility] LABCLIA [id number] [place], [place] [address]SNX (RBC) [Entitic vol]96.7 eTNaeajg48.0-100.0[facility] on above: Order Comment: Specimen Type: BLOOD SPECIMENOrdering Facility: [facility] Address:[address] [place], [place] [address]Performed By: #### 15591- 2 ####[facility] LABCLIA [id number] [place], [place] [address]Qmlddngef RBC (Bld) [#/Vol]10*3/uLNormal<0.01[facility] on above:Order Comment: Specimen Type: BLOOD SPECIMENOrdering Facility: [facility] Address:[address] [place], [place] [address]Performed By: #### 33928-6 ####[facility] LABIA [id number] [place], [place] [address]Gcwgaixk mean volume (Bld) [Entitic vol]10.6 fLNormal9.0-12.7CChillicothe Hospital on above:Order Comment: Specimen Type: BLOOD SPECIMENOrdering Facility: [facility] Address:[address] [place] [address] Performed By: #### 08910-3 ####[facility] LABIA [id number] [place], [place] [address]Aekyvnxng (Bld) [#/Vol]265 10*3/pISafvhl690-155JyblerimfOhio State University [facility] Medical Center on above:Order Comment: Specimen Type: BLOOD SPECIMENOrdering Facility: [facility] Address:[address] [place], [place] [address]Performed By: #### 09363-6 ####[facility] LABCLIA [id number] [place], [place] [address]CDP (Bld) [#/Vol]4.29 10*6/uLNormal3.90-5.20[facility] on above:Order Comment: Specimen Type: BLOOD SPECIMENOrdering Facility: [facility] Address:[address] [place], [place] [address]Performed By: #### 53167-1 ####[facility] LABCLIA [id number] [place], [place] [address]RXA (Bld) [#/Vol]12.61 10*3/uLHigh3.70-11.00[facility] on above: Order Comment: Specimen Type: BLOOD SPECIMENOrdering Facility: [facility] Address:[address] [place], [place] [address]Performed By: #### 91796- 2 ####[facility] LABCLIA [id number] [place], [place] [address]WVV SerPl-mCncon 10-21-4637XNK [Mass/Vol]mg/LNormal<0.9 [facility] on above:Order Comment: Specimen Type: BLOOD SPECIMENOrdering Facility: [facility] Address:[address] [place], [place] [address]Performed By: #### 1988-5, 2132-9 ####[facility] LABCLIA [id number] [place] [address] [place] AMERICAComprehensive metabolic 2000 panelOrdered By: Josse Merlos on 98-61-8467Jgkepnl [Mass/Vol]3.9 g/dL3.9 - 4.9 g/dLCleaultman hospital ClinicALP [Catalytic activity/Vol]83 U/L34 - 123 U/LCleveland ClinicALT [Catalytic activity/Vol]42 U/LHigh7 - 38 U/LCleveland ClinicAnion gap [Moles/Vol]10 mmol/L8 - 15 mmol/L [facility] ClinicAST [Catalytic activity/Vol]22 U/L13 - 35 U/LClevelthe outer banks hospital Clinic Bilirubin [Mass/Vol]0.2 mg/dL0.2 - 1.3 mg/dLTipton ClinicCalcium [Mass/Vol] 9.7 mg/dL8.5 - 10.2 mg/dLBethesda North HospitalChloride [Moles/Vol]103 mmol/L98 - 107 mmol/LCleveland ClinicCO2 [Moles/Vol]23 mmol/L22 - 30 mmol/LCleveland Clinic Creatinine [Mass/Vol]0.50 mg/dLLow0.58 - 0.96 mg/dLBethesda North HospitalGFR/1.73 sq M.predicted among non-blacks MDRD (S/P/Bld) [Vol rate/Area]119 mL/min/{1.73_m2}- PINFCSumma Health Wadsworth - Rittman Medical CenterComment on above:Estimated Glomerular Filtration Rate (eGFR) is calculated using the 2020 CKD-EPI creatinine equation. This equation utilizes serum creatinine, sex, and age as parameters. The creatinine assay has traceable calibration to isotope dilution-mass spectrometry. Refer to KDIGO guidelines for clinical interpretation. In patients with unstable renal function, e.g. those with acute kidney injury, the eGFRmay not accurately reflect actual GFR.Glucose [Mass/Vol]221 mg/mFTcbm74 - 99 mg/dLBethesda North HospitalComment on above:The [place] Diabetes Association (ADA) provides guidance for cutoff [...] Standards of Medical Care in Diabetes 2016, [place] Diabetes Association. Diabetes Care. 2016.39(Suppl 1). Interpretation and review of laboratory resultsAbnormalCleveland ClinicPotassium [Moles/Vol]4.1 mmol/L3.7 - 5.1 mmol/LCleveland ClinicProtein [Mass/Vol]6.8 g/dL 6.3 - 8.0 g/dLMorrow County Hospitalodium [Moles/Vol]136 mmol/L136 - 144 mmol/L [facility] HospitalUrea nitrogen [Mass/Vol]15 mg/dL7 - 21 mg/dLProMedica Memorial Hospitalprehensive metabolic 2000 panelon 29-80-3148Oqlrtzx [Mass/Vol]3.9 g/dLNormal3.9-4.9CChillicothe Hospital on above:Order Comment: Specimen Type: BLOOD SPECIMENOrdering Facility: [facility] Address:[address] [place], [place] [address]Performed By: #### 49625- 8 ####[facility] LABCLIA [id number] [place], [place] [address]VOM [Catalytic activity/Vol]83 U/YRlqjre67-606CajesnmfpOhio State University [facility] on above:Order Comment: Specimen Type: BLOOD SPECIMENOrdering Facility: [facility] Address:[address] [place], [place] [address]Performed By: #### 92414-2 ####[facility] LABCLIA [id number] [place], [place] [address]ERN [Catalytic activity/Vol]42 U/LHigh7-38[facility] on above:Order Comment: Specimen Type: BLOOD SPECIMENOrdering Facility: [facility] Address:[address] [place], [place] [address]Performed By: #### 48325- 8 ####[facility] LABCLIA [id number] [place], [place] [address]Wzzkr gap [Moles/Vol]10 mmol/LNormal8-15[facility] on above:Order Comment: Specimen Type: BLOOD SPECIMENOrdering Facility: [facility] Address:[address] [place], [place] [address]Performed By: #### 68244-4 ####[facility] LABCLIA [id number] [place], [place] [address]UJZ [Catalytic activity/Vol]22 U/HLrgdjd51-11CgkapqmutOhio State University [facility] on above:Order Comment: Specimen Type: BLOOD SPECIMENOrdering Facility: [facility] Address:[address] [place], [place] [address]Performed By: #### 36216-4 ####[facility] LABCLIA [id number] [place] [address] Bilirubin [Mass/Vol]0.2 mg/dLNormal0.2-1.3CChillicothe Hospital on above:Order Comment: Specimen Type: BLOOD SPECIMENOrdering Facility: [facility] Address:[address] [place], [place] [address]Performed By: #### 03986-0 ####[facility] LABCLIA [id number] [facility] [place] [address]Vfmhfyo [Mass/Vol]9.7 mg/dLNormal8.5-10.2CChillicothe Hospital on above:Order Comment: Specimen Type: BLOOD SPECIMENOrdering Facility: [facility] Address:[address] [place], [place] [address]Performed By: #### 43678-3 ####[facility] LABCLIA [id number] [place], [place] [address]Dexzqvxf [Moles/Vol]103 mmol/VEqvubw65-756SoixzbaqaOhio [facility] University [facility] on above: Order Comment: Specimen Type: BLOOD SPECIMENOrdering Facility: [facility] Address:[address] [place], [place] [address]Performed By: #### 67736- 8 ####[facility] LABCLIA [id number] KERRIRY JA DRIVERHONORHEALTH SONORAN CROSSING MEDICAL CENTERAMAYA, [place] [address]XA9 [Moles/Vol]23 mmol/LScytgf32-91AfaosdxwgOhio State University [facility] on above:Order Comment: Specimen Type: BLOOD SPECIMENOrdering Facility: [facility] Address:[address] [place], [place] [address]Performed By: #### 61558-8 ####[facility] LABCLIA [id number] [place], [place] [address]Tknsikcshy [Mass/Vol]0.50 mg/dL Low0.58-0.96[facility] on above:Order Comment: Specimen Type: BLOOD SPECIMENOrdering Facility: [facility] Address:[address] [place], [place] [address]Performed By: #### 81929-4 ####[facility] LABIA [id number] [place] [address] eGFRcr SerPlBld CKD-EPI 5301164 mL/min/1.73m???Normal>=60[facility] on above:Order Comment: Specimen Type: BLOOD SPECIMENOrdering Facility: [facility] Address:[address] [place], [place] [address]Result Comment: Estimated Glomerular Filtration Rate (eGFR) is calculated using the 2020 CKD-EPI creatinine equation. This equation utilizes serum creatinine, sex, and age as parameters. The creatinine assay has traceable calibration to isotope dilution-mass spectrometry. Refer to KDIGO guidelines for clinical interpretation. In patients with unstable renal function, e.g. those with acute kidney injury, the eGFR may not accurately reflect actual GFR. Performed By: #### 51775-4 ####[facility] LABIA [id number] [place], [place] [address]Tkaszyp [Mass/Vol]221 mg/dLHigh 74-99[facility] on above:Order Comment: Specimen Type: BLOOD SPECIMENOrdering Facility: [facility] Address:[address] [place], [place] [id number] Comment: The [place] [employer] (ADA) provides guidance for cutoff [...] unequivocal hyperglycemia, results should be confirmed by repeattesting. In a patient with classic symptoms of hyperglycemia or hyperglycemic crisis, random plasmaglucose results greater than or equal to 200 mg/dL meet the criteria for diagnosis of diabetes.Reference: Standards of Medical Care in Diabetes 2016, [place] [employer]. Diabetes Care. 2016.39(Suppl 1).Performed By: #### 50783-2 ####[facility] LABCLIA [id number] [place], [place] [address]Vtkbsqpcy [Moles/Vol]4.1 mmol/LNormal3.7-5.1CChillicothe Hospital on above:Order Comment: Specimen Type: BLOOD SPECIMENOrdering Facility: [facility] Address:[address] [place], [place] [address]Performed By: #### 65877-4 ####[facility] LABCLIA [id number] [place], [place] [address]Orgbwjp [Mass/Vol]6.8 g/dLNormal6.3-8.0[facility] on above:Order Comment: Specimen Type: BLOOD SPECIMENOrdering Facility: [facility] Address:[address] [place], [place] [address]Performed By: #### 41239- 8 ####[facility] LABCLIA [id number] [place], [place] [address]Tepnow [Moles/Vol]136 mmol/STnxpta654-187KbemggalnOhio [facility] University [facility] on above:Order Comment: Specimen Type: BLOOD SPECIMENOrdering Facility: [facility] Address:[address] [place], [place] [address]Performed By: #### 21251-8 ####[facility] LABCLIA [id number] [place], [place] [address]Zoxd nitrogen [Mass/Vol]15 mg/dLNormal7-21[facility] on above:Order Comment: Specimen Type: BLOOD SPECIMENOrdering Facility: [facility] Address:[address] [place], [place] [address]Performed By: #### 71086-4 ####[facility] LABCLIA [id number] [place], [place] [address]ROA Westergren method (Bld) [Velocity]on 72-97-8095MLF (Bld) [Velocity]34 mm/hHigh0-20[facility] on above:Order Comment: Specimen Type: BLOOD SPECIMENOrdering Facility: [facility] Address:[address] [place], [place] [address]Performed By: #### 4537-7 ####[facility] LABIA [id number] [place] [address] [place] AMERICAHBV core Ab Ser Qlon 01-11-2025 HBV core Ab Ql (S)NegativeNormalNegativeOhio [facility] on above:Order Comment: Specimen Type: BLOOD SPECIMENOrdering Facility: [facility] Address:[address] [place], [place] [address]Result Comment: No evidence of current or past infection with Hepatitis B virus. Should recent infection be suspected, repeat testing may be considered 3-4 weeks after this draw.Performed By: #### 5195-3, 91598-3, 76686-1 ####[facility] LABIA [id number] V[place] [id number] [place] AMERICAHBV surface Ab Ql (S)on 51-22-3575XES surface Ab Qn (S)177.77 mIU/mLNormalOhio [facility] on above:Order Comment: Specimen Type: BLOOD SPECIMENOrdering Facility: [facility] Address:[address] [place], [place] [address]Result Comment: <8 mIU/mL: No serological evidence of immunity to Hepatitis B Virus.>/= 8 to <12 mIU/mL: No serological evidence of immunity to Hepatitis B Virus.>/= 12 mIU/mL: Consistentwith serological evidence of immunity to Hepatitis B Virus.Performed By: #### 5195-3, 28330-4, 96899-3 ####[facility] LABIA [id number] [address] [place] AMERICAHBV surface Ab Ser Ql on 39-66-7594ZAU surface Ab Ql (S)PositiveNormalCMary [facility] Comment on above:Order Comment: Specimen Type: BLOOD SPECIMENOrdering Facility: [facility] Address:[address] [place], [place] [address]Result Comment: Consistent with serological evidence of immunity to Hepatitis B Virus. Performed By: #### 5195-3, 76827-5, 49043-3 ####[facility] LABCLIA [id number] [address] [place] AMERICAHBV surface Ag Ser Qlon 90-56-3828HOP surface Ag Ql (S)NegativeNormal NegativeOhio State University [facility] on above:Order Comment: Specimen Type: BLOOD SPECIMENOrdering Facility: [facility] Address:[address] [place], [place] [address]Performed By: #### 5195-3, 10144-6, 54920-1 ####[facility] LABIA [id number] [address] [place] AMERICAHCV Ab Ser Qlon 12-13-8512GDX Ab Ql (S)NegativeNormalNegativeOhio [facility] on above:Order Comment: Specimen Type: BLOOD SPECIMENOrdering Facility: [facility] Address:[address] [place], [place] [address]Result Comment: The result suggests no evidence of infection with Hepatitis C virus. Should recent i nfection be suspected, repeat testing may be considered 4-6 weeks after this draw.Performed By: #### 00365-7 ####[facility] LABIA [id number] [place] [address] [place] Vit B12 SerPl-mCncon 73-88-0243Ppitfkiap (Vitamin B12) [Mass/Vol]710 pg/mLNormal 232-1245CChillicothe Hospital on above:Order Comment: Specimen Type: BLOOD SPECIMENOrdering Facility: [facility] Address:[address] [place], [place] [address]Performed By: #### 1988-5, 2131-9 ####[facility] LABCLIA [id number] [facility] [id number] [place] [address] W Auto Differential panel (Bld)on 11-29-2024 Basophils (Bld) [#/Vol]0.09 10*3/uLNormal<0.11CMary Rutan HospitalComment on above:Order Comment: Specimen Type: BLOOD SPECIMENOrdering Facility: [facility] Address:[address] [place] [address] Performed By: #### 74066-0 ####[facility] LABCLIA [id number] [place], [place] [address]Euzeojyuk/100 WBC (Bld)0.7 % NormalOhio State University [facility] on above:Order Comment: Specimen Type: BLOOD SPECIMENOrdering Facility: [facility] Address:[address] [place], [place] [address]Performed By: #### 97188-1 ####[facility] LABCLIA [id number] [place] [address] Differential cell count method Nom (Bld)AutoNormalCMary [facility] Comment on above:Order Comment: Specimen Type: BLOOD SPECIMENOrdering Facility: [facility] Address:[address] [place] [address] Performed By: #### 00098-9 ####[facility] LABCLIA [id number] [place], [place] [address]Vyaatcfdlcj (Bld) [#/Vol]0.09 10*3/uLNormal<0.46[facility] on above:Order Comment: Specimen Type: BLOOD SPECIMENOrdering Facility: [facility] Address:[address] [place], [place] [address]Performed By: #### 64426-6 ####[facility] LABCLIA [id number] [place], [place] [address]Udmtqzvntjt/100 WBC (Bld)0.7 %NormalOhio State University [facility] on above:Order Comment: Specimen Type: BLOOD SPECIMENOrdering Facility: [facility] Address:[address] [place], [place] [address]Performed By: #### 71610-7 ####[facility] LABIA [id number] [place], [place] [address]Inwsppchqfg distribution width (RBC) [Ratio]14.8 %Gdkciy37.5-15.0[facility] on above: Order Comment: Specimen Type: BLOOD SPECIMENOrdering Facility: [facility] Address:[address] [place], [place] [address]Performed By: #### 57052- 8 ####[facility] LABIA [id number] [place], [place] [address]Zgbdqfplra (Bld) [Volume fraction]42.9 %Jdfvyn56.0-46.0 [facility] on above:Order Comment: Specimen Type: BLOOD SPECIMENOrdering Facility: [facility] Address:[address] [place], [place] [address]Performed By: #### 04721-1 ####[facility] LABIA [id number] [place], [place] [address]Wwzhufszud (Bld) [Mass/Vol]14.0 g/kBSmqgif36.5-15.5CChillicothe Hospital on above: Order Comment: Specimen Type: BLOOD SPECIMENOrdering Facility: [facility] Address:[address] [place], [place] [address]Performed By: #### 01158- 8 ####[facility] LABIA [id number] [place], [place] [address]Dkjllfzo granulocytes (Bld) [#/Vol]0.18 10*3/uLHigh<0.10 [facility] on above:Order Comment: Specimen Type: BLOOD SPECIMENOrdering Facility: [facility] Address:[address] [place], [place] [address]Performed By: #### 17259-9 ####[facility] LABCLIA [id number] [place], [place] [address]Mddausma granulocytes/100 WBC (Bld)1.5 %NormalOhio State University [facility] on above: Order Comment: Specimen Type: BLOOD SPECIMENOrdering Facility: [facility] Address:[address] [place], [place] [address]Performed By: #### 47830- 8 ####[facility] LABCLIA [id number] [place], [place] [address]Owjjtorkdmz (Bld) [#/Vol]1.99 10*3/uLNormal1.00-4.00 [facility] on above:Order Comment: Specimen Type: BLOOD SPECIMENOrdering Facility: [facility] Address:[address] [place], [place] [address]Performed By: #### 77779-3 ####[facility] LABIA [id number] [place], [place] [address]Hjyaoqvyqcr/100 WBC (Bld)16.4 %NormalOhio State University [facility] on above:Order Comment: Specimen Type: BLOOD SPECIMENOrdering Facility: [facility] Address:[address] [place], [place] [address]Performed By: #### 39616-1 ####[facility] LABIA [id number] [place], [place] [address]WHK (RBC) [Entitic mass]31.7 jrPmrrmr35.0-34.0[facility] on above:Order Comment: Specimen Type: BLOOD SPECIMENOrdering Facility: [facility] Address:[address] [place], [place] [address]Performed By: #### 64521-8 ####[facility] LABIA [id number] [place], [place] [address]ZPMF (RBC) [Mass/Vol]32.6 g/aIGjbhmi09.5-36.0[facility] on above: Order Comment: Specimen Type: BLOOD SPECIMENOrdering Facility: [facility] Address:[address] [place], [place] [address]Performed By: #### 62992- 8 ####[facility] LABCLIA [id number] [place], [place] [address]QHQ (RBC) [Entitic vol]97.1 kOWjpzjc86.0-100.0[facility] on above:Order Comment: Specimen Type: BLOOD SPECIMENOrdering Facility: [facility] Address:[address] [place], [place] [address]Performed By: #### 12449-6 ####[facility] LABCLIA [id number] [place], [place] [address]Dcpaixpwr (Bld) [#/Vol]0.67 10*3/uLNormal<0.87[facility] on above:Order Comment: Specimen Type: BLOOD SPECIMENOrdering Facility: [facility] Address:[address] [place], [place] [address]Performed By: #### 05614- 8 ####[facility] LABCLIA [id number] [place], [place] [address]Mlntainot/100 WBC (Bld)5.5 %NormalOhio State University [facility] on above:Order Comment: Specimen Type: BLOOD SPECIMENOrdering Facility: [facility] Address:[address] [place], [place] [address]Performed By: #### 64233-1 ####[facility] LABCLIA [id number] [place], [place] [address]Cupvrzdovhy (Bld) [#/Vol]9.15 10*3/uLHigh1.45-7.50[facility] on above:Order Comment: Specimen Type: BLOOD SPECIMENOrdering Facility: [facility] Address:[address] [place], [place] [address]Performed By: #### 52059-3 ####[facility] CENTERDAPHNE [facility] LABCLIA [id number] [place], [place] [address]Ezmmupavign/100 WBC (Bld)75.2 %NormalOhio State University [facility] on above:Order Comment: Specimen Type: BLOOD SPECIMENOrdering Facility: [facility] Address:[address] [place], [place] [address]Performed By: #### 79049-7 ####[facility] LABCLIA [id number] [place], [place] [address]Zfkxzbeob RBC (Bld) [#/Vol] 10*3/uLNormal<0.01[facility] on above:Order Comment: Specimen Type: BLOOD SPECIMENOrdering Facility: [facility] Address:[address] [place], [place] [address]Performed By: #### 49246-8 ####[facility] LABIA [id number] [place], [place] [address]Tmdmhqihe RBC/100 WBC (Bld) [Ratio]0.0 /100 WBCNormal [facility] on above:Order Comment: Specimen Type: BLOOD SPECIMENOrdering Facility: [facility] Address:[address] [place], [place] [address]Performed By: #### 16814-0 ####[facility] LABIA [id number] [place], [place] [address]Kmyscgin mean volume (Bld) [Entitic vol]9.7 fLNormal9.0-12.7CChillicothe Hospital on above:Order Comment: Specimen Type: BLOOD SPECIMENOrdering Facility: [facility] Address:[address] [place] [address] Performed By: #### 85502-8 ####[facility] LABIA [id number] [place], [place] [address]Vliasxznc (Bld) [#/Vol]281 10*3/mDVxztfr662-526LpgkknqyaOhio State University [facility] on above:Order Comment: Specimen Type: BLOOD SPECIMENOrdering Facility: [facility] Address:[address] [place], [place] [address]Performed By: #### 29341-6 ####[facility] CENTERDAPHNE [facility] LABCLIA [id number] [place], [place] [address]BNB (Bld) [#/Vol]4.42 10*6/uLNormal3.90-5.20[facility] on above:Order Comment: Specimen Type: BLOOD SPECIMENOrdering Facility: [facility] Address:[address] [place], [place] [address]Performed By: #### 82320-6 ####[facility] LABIA [id number] [place], [place] [address]KLR (Bld) [#/Vol]12.17 10*3/uLHigh3.70-11.00[facility] on above: Order Comment: Specimen Type: BLOOD SPECIMENOrdering Facility: [facility] Address:[address] [place], [place] [address]Performed By: #### 62593- 8 ####[facility] LABIA [id number] [place], [place] [address]MITJRGyd 15-22-4708MAKQVUWksswaIeqhimtcfPremier Health [facility] metabolic 2000 panelon 98-45-8814Gxyrzaw [Mass/Vol]4.1 g/dLNormal 3.9-4.9CChillicothe Hospital on above:Order Comment: Specimen Type: BLOOD SPECIMENOrdering Facility: [facility] Address:[address] [place], [place] [address]Performed By: #### 32814-5 ####[facility] LABIA [id number] [place], [place] [address]IJM [Catalytic activity/Vol]61 U/NNjtvnq46-874NvfmmgbziOhio State University [facility] on above:Order Comment: Specimen Type: BLOOD SPECIMENOrdering Facility: [facility] Address:[address] [place], [place] [address]Performed By: #### 54292-4 ####[facility] CENTERDAPHNE [facility] LABCLIA [id number] [place] [address]FYV [Catalytic activity/Vol]39 U/LHigh7-38[facility] on above:Order Comment: Specimen Type: BLOOD SPECIMENOrdering Facility: [facility] Address:[address] [place], [place] [address]Performed By: #### 65556-6 ####[facility] LABCLIA [id number] OSORIO BARNESHONORHEALTH SONORAN CROSSING MEDICAL CENTERCAYDENDESERT [place], [place] [address]Qdjue gap [Moles/Vol]13 mmol/LNormal8-15[facility] on above:Order Comment: Specimen Type: BLOOD SPECIMENOrdering Facility: [facility] Address:[address] [place], [place] [address]Performed By: #### 78078- 8 ####[facility] CENTERDAPHNE [facility] LABCLIA [id number] OSORIO DRIVERHONORHEALTH SONORAN CROSSING MEDICAL CENTERAMAYAKNIGHTSTOWN, [place] [address]IBH [Catalytic activity/Vol]16 U/HGnlihq75-61OuhuxahbaOhio State University [facility] on above:Order Comment: Specimen Type: BLOOD SPECIMENOrdering Facility: [facility] Address:[address] [place], [place] [address]Performed By: #### 94242-6 ####[facility] LABCLIA [id number] OSORIO BARNESHONORHEALTH SONOR[facility] CROSSING MEDICAL CENTERAMAYAKNIGHTSTOWN, [place] [address]Qfjzchwrc [Mass/Vol]0.2 mg/dLNormal0.2-1.3CChillicothe Hospital on above:Order Comment: Specimen Type: BLOOD SPECIMENOrdering Facility: [facility] Address:[address] [place], [place] [address]Performed By: #### 25163- 8 ####[facility] LABCLIA [id number] KERRIRY JA DRIVERHONORHEALTH SONORAN CROSSING MEDICAL CENTERAMAYAKNIGHTSTOWN, [place] [address]Eivbpcu [Mass/Vol]9.7 mg/dLNormal8.5-10.2CChillicothe Hospital on above:Order Comment: Specimen Type: BLOOD SPECIMENOrdering Facility: [facility] Address:[address] [place], [place] [address]Performed By: #### 76872-7 ####[facility] LABCLIA [id number] [place], [place] [address]Rzgxykrt [Moles/Vol]102 mmol/L Ytqgut45-293EavddnbpvOhio State University [facility] on above:Order Comment: Specimen Type: BLOOD SPECIMENOrdering Facility: [facility] Address:[address] [place], [place] [address]Performed By: #### 16451-1 ####[facility] LABCLIA [id number] [place] [address] CO2 [Moles/Vol]23 mmol/PCqyxpn16-11MpluymfzrOhio State University [facility] on above: Order Comment: Specimen Type: BLOOD SPECIMENOrdering Facility: [facility] Address:[address] [place], [place] [address]Performed By: #### 57898- 8 ####[facility] LABCLIA [id number] [place], [place] [address]Jvmfwblkhz [Mass/Vol]0.58 mg/dLNormal0.58-0.96[facility] on above:Order Comment: Specimen Type: BLOOD SPECIMENOrdering Facility: [facility] Address:[address] [place], [place] [address]Performed By: #### 12324-1 ####[facility] LABCLIA [id number] [place], [place] [address]Rzwmqjcngj and Glomerular filtration rate.predicted panel (S/P/Bld)115 mL/min/1.73m???Normal >=60[facility] on above:Order Comment: Specimen Type: BLOOD SPECIMENOrdering Facility: [facility] Address:[address] [place], [place] [address]Result Comment: Estimated Glomerular Filtration Rate (eGFR) is calculated using the 2020 CKD-EPI creatinine equation. This equation utilizes serum creatinine, sex, and age as parameters. The creatinine assay has traceable calibration to isotope dilution-mass spectrometry. Refer to KDIGO guidelines for clinical interpretation. In patients with unstable renal function, e.g. those with acute kidney injury, the eGFR may not accurately reflect actual GFR.Performed By: #### 71501-0 ####[facility] LABCLIA [id number] [place], [place] [address]Gaihhkb [Mass/Vol]233 mg/uFJczi71-66MfogfiklpOhio State University [facility] on above:Order Comment: Specimen Type: BLOOD SPECIMENOrdering Facility: [facility] Address:[address] [place] [address] [id number] Comment: The [place] Diabetes Association (ADA) provides guidance for cutoff values for fast ing glucose and random glucose. The ADA defines fasting as no caloric intake for at least 8 hours. Fasting plasma glucose results between 100 to 125 mg/dL indicate increased risk for diabetes (prediabetes).Fasting plasma glucose results greater than or equal to 126 mg/dL meet the criteria for diagnosis of diabetes. In the absence of unequivocal hyperglycemia, results should be confirmed by repeattesting. In a patient with classic symptoms of hyperglycemia or hyperglycemic crisis, random plasmaglucose results greater than or equal to 200 mg/dL meet the criteria for diagnosis of diabetes.Reference: Standards of Medical Care in Diabetes 2016, [place] Diabetes Association. Diabetes Care. 2016.39(Suppl 1).Performed By: #### 59793-8 ####[facility] LABCLIA [id number] [place], [place] [address]Dtapsyylv [Moles/Vol]4.0 mmol/LNormal3.7-5.1CChillicothe Hospital on above: Order Comment: Specimen Type: BLOOD SPECIMENOrdering Facility: [facility] Address:[address] [place], [place] [address]Ldaeavlen By: #### 01081- 8 ####[facility] LABCLIA [id number] [place], [place] [address]Lpqcaph [Mass/Vol]7.0 g/dLNormal6.3-8.0[facility] on above:Order Comment: Specimen Type: BLOOD SPECIMENOrdering Facility: [facility] Address:[address] [place], [place] [address]Performed By: #### 58402-9 ####[facility] LABCLIA [id number] [place], [place] [address]Kqynmj [Moles/Vol]138 mmol/L Zyohdm889-540WazgeicssOhio State University [facility] on above:Order Comment: Specimen Type: BLOOD SPECIMENOrdering Facility: [facility] Address:[address] [place], [place] [address]Performed By: #### 87814-6 ####[facility] LABCLIA [id number] [place] [address] Urea nitrogen [Mass/Vol]16 mg/dLNormal7-21[facility] on above:Order Comment: Specimen Type: BLOOD SPECIMENOrdering Facility: [facility] Address:[address] [place], [place] [address]Performed By: #### 73525-3 ####[facility] LABIA [id number] [place], [place] [address]Hcbdbyhb SerPl-mCncon 22-14-2416Qevwieze [Mass/Vol] 63.6 ng/mMYdnzdn41.7-205.1CChillicothe Hospital on above:Order Comment: Specimen Type: BLOOD SPECIMENOrdering Facility: [facility] Address:[address] [place], [place] [address]Performed By: #### 2284- 8, 83350-8, 2276-4, 2132-9 ####[facility] LABCLIA [id number] [place] [id number] [place] OF AMERICAFolate SerPl-mCncon 84-50-7782Kltclt [Mass/Vol]ng/mLNormal>4.7CChillicothe Hospital on above:Order Comment: Specimen Type: BLOOD SPECIMENOrdering Facility: [facility] Address:[address] [place], [place] [address]Result Comment: A result of > 20 ng/mL is not necessarily indicative of a pathologic or treatable condition: it reflects a limitation of the test methodology.Assay reference range: 4.8 to 24.2 ng/mL. Suitable for detection of folate deficiency.Reference:Folate III (Folate III) [package insert V 1.0 [place]]. [facility], [place], [place]: March 2015.Performed By: #### 2284-8, 38865-1, 2276-4, 2132-9 ####[facility] LABCLIA [id number] [place] [address] [place] IMMUNOGLOBULINS,IGG,IGA,IGMon 55-58-6749YfP [Mass/Vol]169 mg/wQIyescy37-592 [facility] on above:Order Comment: Specimen Type: BLOOD SPECIMENOrdering Facility: [facility] Address:[address] [place], [place] [address]Performed By: #### SERIMM ####[facility]CLIA [id number] [place] [address] [place] [Mass/Vol]596 mg/dGCvg805-0721DkbpczndxOhio State University [facility] on above:Order Comment: Specimen Type: BLOOD SPECIMENOrdering Facility: [facility] Address:[address] [place], [place] [address]Performed By: #### SERIMM ####[facility]IA [id number] [place] [address] [place] [Mass/Vol]410 mg/dL Jexa87-773JrorpeytxOhio State University [facility] on above:Order Comment: Specimen Type: BLOOD SPECIMENOrdering Facility: [facility] Address:[address] [place], [place] [address]Performed By: #### SERIMM ####[facility]CL[facility] [id number] [place] [address] [place] AMERICAIron and Iron binding capacity panelon [id number] [Mass/Vol]154 ug/dJLbmncn47-330HenfxzqnkOhio [facility] on above:Order Comment: Specimen Type: BLOOD SPECIMENOrdering Facility: [facility] Address:[address] [place], [place] [address]Performed By: #### 2284- 8, 64885-4, 4, 2132-01 ####[facility] LABCLIA [id number] [place] [address] [place] OF AMERICAIron binding capacity [Mass/Vol]363 ug/lZZqaxop434-306UggbgbnwmOhiohealth Riverside Methodist Hospital Comment on above:Order Comment: Specimen Type: BLOOD SPECIMENOrdering Facility: [facility] Address:[address] [place] [address] Performed By: #### 2284-8, 27999-2, 2275-08, 2132-01 ####[facility] LABCLIA [id number] [place] [address] [place] AMERICAIron/TIBC [Molar ratio]42.4 %Hvvrhr87.0-57.0[facility] on above:Order Comment: Specimen Type: BLOOD SPECIMENOrdering Facility: [facility] Address:[address] [place], [place] [address]Performed By: #### 2284-8, 77330-9, 2275-08, 2132-01 ####[facility] LABCLIA [id number] [place] [address] [place] AMERICAVit B12 SerPl-mCncon 17-92-9408Msaczauvx (Vitamin B12) [Mass/Vol]775 pg/lPNxfydq464-0925AdrjcyzrcChillicothe Hospital on above: Order Comment: Specimen Type: BLOOD SPECIMENOrdering Facility: [facility] Address:[address] [place], [place] [address]Performed By: #### 2284- 8, 50186-4, 2275-08, 2132-01 ####[facility] LABCLIA [id number] [facility] [id number] [place] [address] [place] [facility] HOSPITALCNPNon 12-83-0413FEVCHvwvkbNydmnrweu Clinic ClevelandCNPNon 72-60-9302UUNOTqywno [facility] HospitalCNPNon 22-72-8280WNCVHvsljlPpfmtfjat Clinic [place] 25([place])D3 SerPl-mCncon 19-66-576149725556-nejlasaoxrkkan D3 [Mass/Vol]30.9 ng/mLLow 31.0-80.0[facility] Methodist HospitalComment on above:Order Comment: Specimen Type: BLOOD SPECIMENOrdering Facility: [facility] Address:[address] [place], [place] [address]Result Comment: Classification of 25 [place] Vitamin D status:Deficiency/Insufficiency: < or = 30 ng/ml.Sufficiency/Optimal Levels: 31-80 ng/mLToxicity: > 100 ng/mL.Test performed by chemiluminescent immunoassay. Performed By: #### 1989-3 ####[facility] LABCLIA [id number] [place] [id number] [place]ER 25-hydroxyvitamin D3 [Mass/Vol]on 41-01-8335Bofbtpvlferoxe and review of laboratory resultsAbMercy Memorial HospitalThe reference range interval was based on an analysis of samples from healthy adults and may not pertain to children from 0-18 years old. [facility] North HospitalC-REACTIVE PROTEINon 15-49-1587VCZ [Mass/Vol] mg/dLNINF - 0.9 mg/dLMarion Hospital panel Auto (Bld)on 10-02-2024 Erythrocyte distribution width (RBC) [Ratio]16.2 %High11.5 - 15.0 %[facility] North HospitalHematocrit (Bld) [Volume fraction]41.3 %36.0 - 46.0 %[facility] Hemoglobin (Bld) [Mass/Vol]13.7 g/dL11.5 - 15.5 g/dLBethesda North Hospital Interpretation and review of laboratory resultsAbnormalCThe MetroHealth SystemH (RBC) [Entitic mass]31.1 pg26.0 - 34.0 pgCThe MetroHealth SystemHC (RBC) [Mass/Vol]33.2 g/dL30.5 - 36.0 g/dLBethesda North HospitalMCV (RBC) [Entitic vol]93.7 fL80.0 - 100.0 fLCleveland ClinicNucleated RBC (Bld) [#/Vol]NINFCleveland ClinicPlatelet mean volume (Bld) [Entitic vol]10.1 fL9.0 - 12.[address] [facility] hospital ClinicPlatelets (Bld) [#/Vol]265 10*3/uLBethesda North HospitalRBC (Bld) [#/Vol]4.41 10*6/uL3.90 - 5.20 m/uL [facility] HospitalWBC (Bld) [#/Vol]10.07 10*3/uLTriHealth Bethes[facility] North Hospital Erythrocyte distribution width (RBC) [Ratio]16.2 %High11.5-15.0[facility] on above:Order Comment: Specimen Type: BLOOD SPECIMENOrdering Facility: [facility] Address:[address] [place], [place] [address]Performed By: #### 28307-7 ####[facility] LABIA [id number] [place], [place] [address]Ufagbecyih (Bld) [Volume fraction]41.3 %Grtoum99.0-46.0[facility] on above:Order Comment: Specimen Type: BLOOD SPECIMENOrdering Facility: [facility] Address:[address] [place], [place] [address]Performed By: #### 92510- 2 ####[facility] LABIA [id number] [place], [place] [address]Ttkiisjqtb (Bld) [Mass/Vol]13.7 g/fEXsjmnf26.5-15.5 [facility] on above:Order Comment: Specimen Type: BLOOD SPECIMENOrdering Facility: [facility] Address:[address] [place], [place] [address]Performed By: #### 78939-9 ####[facility] LABIA [id number] [place], [place] [address]KNA (RBC) [Entitic mass]31.1 zfXjhxwk93.0-34.0[facility] on above: Order Comment: Specimen Type: BLOOD SPECIMENOrdering Facility: [facility] Address:[address] [place], [place] [address]Performed By: #### 23383- 2 ####[facility] LABCLIA [id number] [place], [place] [address]VQTP (RBC) [Mass/Vol]33.2 g/vAMvzjry74.5-36.0[facility] on above:Order Comment: Specimen Type: BLOOD SPECIMENOrdering Facility: [facility] Address:[address] [place], [place] [address]Performed By: #### 45901-2 ####[facility] LABCLIA [id number] [place], [place] [address]PMH (RBC) [Entitic vol]93.7 wRWiypfh73.0-100.0[facility] on above: Order Comment: Specimen Type: BLOOD SPECIMENOrdering Facility: [facility] Address:[address] [place], [place] [address]Performed By: #### 85281- 2 ####[facility] LABIA [id number] [place], [place] [address]Tkqfqsvcv RBC (Bld) [#/Vol]10*3/uLNormal<0.01[facility] on above:Order Comment: Specimen Type: BLOOD SPECIMENOrdering Facility: [facility] Address:[address] [place], [place] [address]Performed By: #### 57048-0 ####[facility] LABIA [id number] [place], [place] [address]Hkjdzvmu mean volume (Bld) [Entitic vol]10.1 fLNormal9.0-12.7CChillicothe Hospital on above:Order Comment: Specimen Type: BLOOD SPECIMENOrdering Facility: [facility] Address:[address] [place], [place] [address] Performed By: #### 93007-5 ####[facility] LABCLIA [id number] [place], [place] [address]Zxglrmbas (Bld) [#/Vol]265 10*3/sQWzqmsh982-459CchygdxwdOhio State University [facility] on above:Order Comment: Specimen Type: BLOOD SPECIMENOrdering Facility: [facility] Address:[address] [place], [place] [address]Performed By: #### 19323-1 ####[facility] LABCLIA [id number] [place], [place] [address]XXT (Bld) [#/Vol]4.41 10*6/uLNormal3.90-5.20[facility] on above:Order Comment: Specimen Type: BLOOD SPECIMENOrdering Facility: [facility] Address:[address] [place], [place] [address]Performed By: #### 17192-7 ####[facility] LABIA [id number] [place], [place] [address]VIA (Bld) [#/Vol]10.07 10*3/uLNormal3.70-11.00[facility] on above: Order Comment: Specimen Type: BLOOD SPECIMENOrdering Facility: [facility] Address:[address] [place], [place] [address]Performed By: #### 86477- 2 ####[facility] LABIA [id number] [place], [place] [address]MIR SerPl-mCncon 70-94-2467KFH [Mass/Vol]mg/LNormal<0.9 [facility] on above:Order Comment: Specimen Type: BLOOD SPECIMENOrdering Facility: [facility] Address:[address] [place], [place] [address]Performed By: #### 1988-5 ####[facility] LABCLIA [id number] [place] [id number] [place] AMERICACRP [Mass/Vol]on 47-94-2053Wuqgvdnitnnzht and review of laboratory resultsNormalCflower hospitaland [facility] for RehabilitationComprehensive metabolic 2000 panel Ordered By: Josse Merlos on 10-62-6190Wcgqgsh [Mass/Vol]3.9 g/dL3.9 - 4.9 g/dL [facility] ClinicALP [Catalytic activity/Vol]61 U/L34 - 123 U/LCleveland [facility] ALT [Catalytic activity/Vol]41 U/LHigh7 - 38 U/LCleveland ClinicAnion gap [Moles/Vol]14 mmol/L8 - 15 mmol/LCleveland ClinicAST [Catalytic activity/Vol]18 U/L13 - 35 U/LCleveland ClinicBilirubin [Mass/Vol]0.2 mg/dL0.2 - 1.3 mg/dL [facility] HospitalCalcium [Mass/Vol]9.6 mg/dL8.5 - 10.2 mg/dLBethesda North Hospital Chloride [Moles/Vol]107 mmol/L98 - 107 mmol/LCleveland ClinicCO2 [Moles/Vol]20 mmol/LLow22 - 30 mmol/LCleveland ClinicCreatinine [Mass/Vol]0.59 mg/dL0.58 - 0.96 mg/dLBethesda North HospitalGFR/1.73 sq M.predicted among non-blacks MDRD (S/P/Bld) [Vol rate/Area]115 mL/min/{1.73_m2}- PINFCSumma Health Wadsworth - Rittman Medical CenterComment on above:Estimated Glomerular Filtration Rate (eGFR) is calculated using the 2020 CKD-EPI creatinine equation. This equation utilizes serum creatinine, sex, and age as parameters. The creatinine assay has traceable calibration to isotope dilution-mass spectrometry. Refer to KDIGO guidelines for clinical inte rpretation. In patients with unstable renal function, e.g. those with acute kidney injury, the eGFRmay not accurately reflect actual GFR.Glucose [Mass/Vol] 216 mg/dAPhrv85 - 99 mg/dLBethesda North HospitalComment on above:The [place] Diabetes Association (ADA) provides guidance for cutoff [...] Standards of Medical Care in Diabetes 2016, [place] Diabetes Association. Diabetes Care. 2016.39(Suppl 1). Interpretation and review of laboratory resultsAbnormalCleveland ClinicPotassium [Moles/Vol]4.1 mmol/L3.7 - 5.1 mmol/LClevelthe outer banks hospital ClinicProtein [Mass/Vol]6.8 g/dL 6.3 - 8.0 g/dLMorrow County Hospitalodium [Moles/Vol]141 mmol/L136 - 144 mmol/L [facility] HospitalUrea nitrogen [Mass/Vol]19 mg/dL7 - 21 mg/dLMercy Health St. Vincent Medical CenterComprehensive metabolic 2000 panelon 70-34-8707Gugqnuq [Mass/Vol]3.9 g/dLNormal3.9-4.9CChillicothe Hospital on above:Order Comment: Specimen Type: BLOOD SPECIMENOrdering Facility: [facility] Address:[address] [place], [place] [address]Performed By: #### 90505- 8 ####[facility] LABCLIA [id number] [place], [place] [address]OAS [Catalytic activity/Vol]61 U/LFczmnf09-539MutfvblqcOhio [facility] University [facility] on above:Order Comment: Specimen Type: BLOOD SPECIMENOrdering Facility: [facility] Address:[address] [place], [place] [address]Performed By: #### 71928-8 ####[facility] LABCLIA [id number] [place], [place] [address]IWB [Catalytic activity/Vol]41 U/LHigh7-38[facility] on above:Order Comment: Specimen Type: BLOOD SPECIMENOrdering Facility: [facility] Address:[address] [place], [place] [address]Performed By: #### 43286- 8 ####[facility] LABCLIA [id number] [place], [place] [address]Wgatg gap [Moles/Vol]14 mmol/LNormal8-15[facility] on above:Order Comment: Specimen Type: BLOOD SPECIMENOrdering Facility: [facility] Address:[address] [place], [place] [address]Performed By: #### 35043-5 ####[facility] LABCLIA [id number] [place], [place] [address]VFO [Catalytic activity/Vol]18 U/FNccmdz02-48MqgubwbeuOhio State University [facility] on above:Order Comment: Specimen Type: BLOOD SPECIMENOrdering Facility: [facility] Address:[address] [place], [place] [address]Performed By: #### 01775-9 ####[facility] LABCLIA [id number] [place] [address] Bilirubin [Mass/Vol]0.2 mg/dLNormal0.2-1.3CChillicothe Hospital on above:Order Comment: Specimen Type: BLOOD SPECIMENOrdering Facility: [facility] Address:[address] [place], [place] [address]Performed By: #### 06107-6 ####[facility] LABCLIA [id number] [place], [place] [address]Bpexqvl [Mass/Vol]9.6 mg/dLNormal8.5-10.2CChillicothe Hospital on above:Order Comment: Specimen Type: BLOOD SPECIMENOrdering Facility: [facility] Address:[address] [place], [place] [address]Performed By: #### 72815-0 ####[facility] LABCLIA [id number] [place], [place] [address]Uakcgvbf [Moles/Vol]107 mmol/JMswqxe24-148AyajuicsoOhio State University [facility] on above: Order Comment: Specimen Type: BLOOD SPECIMENOrdering Facility: [facility] Address:[address] [place], [place] [address]Performed By: #### 11008- 8 ####[facility] LABCLIA [id number] [place], [place] [address]WT7 [Moles/Vol]20 mmol/IXhp00-32HftthcuafOhio State University [facility] on above:Order Comment: Specimen Type: BLOOD SPECIMENOrdering Facility: [facility] Address:[address] [place], [place] [address]Performed By: #### 99061-6 ####[facility] LABCLIA [id number] [place], [place] [address]Vixditydms [Mass/Vol]0.59 mg/dL Normal0.58-0.96[facility] on above:Order Comment: Specimen Type: BLOOD SPECIMENOrdering Facility: [facility] Address:[address] [place], [place] [address]Performed By: #### 02934-8 ####[facility] LABCLIA [id number] [place], [place] [address]Arflksoczd and Glomerular filtration rate.predicted panel (S/P/Bld)115 mL/min/1.73m???Normal>=60[facility] on above:Order Comment: Specimen Type: BLOOD SPECIMENOrdering Facility: [facility] Address:[address] [place], [place] [address]Result Comment: Estimated Glomerular Filtration Rate (eGFR) is calculated using the 2020 CKD-EPI creatinine equation. This equation utilizes serum creatinine, sex, and age as parameters. The creatinine assay has traceable calibration to isotope dilution- mass spectrometry. Refer to KDIGO guidelines for clinical interpretation. In patients with unstable renal function, e.g. those with acute kidney injury, the eGFR may not accurately reflect actual GFR.Performed By: #### 76072-0 ####[facility] LABCLIA [id number] [place], [place] [address]Zbxfqxz [Mass/Vol]216 mg/vJIwmf64-81ZkszglmwzOhio State University [facility] on above:Order Comment: Specimen Type: BLOOD SPECIMENOrdering Facility: [facility] Address:[address] [place], [place] [address]Result Comment: The [place] Diabetes Association (ADA) provides guidance for cutoff values for fasting glucose and random glucose. The ADA defines fasting as no caloric intake for at least 8 hours. Fasting plasma glucose results between 100 to 125 mg/dL indicate increased risk for diabetes (prediab etes).Fasting plasma glucose results greater than or equal to 126 mg/dL meet the criteria for diagnosis of diabetes. In the absence of unequivocal hyperglycemia, results should be confirmed by repeattesting. In a patient with classic symptoms of hyperglycemia or hyperglycemic crisis, random plasmaglucose results greater than or equal to 200 mg/dL meet the criteria for diagnosis of diabetes.Reference: Standards of Medical Care in Diabetes 2016, [place] Diabetes Association. Diabetes Care. 2016.39(Suppl 1).Performed By: #### 87631-8 ####[facility] LABCLIA [id number] [place], [place] [address]Bvrpzhczn [Moles/Vol]4.1 mmol/LNormal3.7-5.1CChillicothe Hospital on above:Order Comment: Specimen Type: BLOOD SPECIMENOrdering Facility: [facility] Address:[address] [place], [place] [address]Performed By: #### 12386-1 ####[facility] LABCLIA [id number] [place], [place] [address]Yrbtsmw [Mass/Vol]6.8 g/dLNormal6.3-8.0[facility] on above:Order Comment: Specimen Type: BLOOD SPECIMENOrdering Facility: [facility] Address:[address] [place], [place] [address]Performed By: #### 97072- 8 ####[facility] LABCLIA [id number] [place], [place] [address]Ydpdkt [Moles/Vol]141 mmol/ULgbtkl420-028BdkaigliaOhio State University [facility] on above:Order Comment: Specimen Type: BLOOD SPECIMENOrdering Facility: [facility] Address:[address] [place], [place] [address]Performed By: #### 78708-7 ####[facility] LABCLIA [id number] [place], [place] [address]Ufxv nitrogen [Mass/Vol]19 mg/dLNormal7-21[facility] on above:Order Comment: Specimen Type: BLOOD SPECIMENOrdering Facility: [facility] Address:[address] [place], [place] [address]Performed By: #### 78082-2 ####[facility] LABCLIA [id number] [place], [place] [address]PHS Westergren method (Bld) [Velocity]on 88-72-0588EIS (Bld) [Velocity]28 mm/hHKnox Community HospitalInterpretation and review of laboratory resultsAbnormalCflower hospitaland Wilson Street HospitalR (Bld) [Velocity]28 mm/hHigh0-20[facility] on above:Order Comment: Specimen Type: BLOOD SPECIMENOrdering Facility: [facility] Address:[address] [place], [place] [address]Performed By: #### 4537-7 ####[facility] LABCLIA [id number] [place] [address] [place] OF AMERICAVITAMIN D 25 HYDROXYon 830148-cttduoxwjplbna D3 [Mass/Vol]30.9 ng/mLLow31.0 - 80.0 ng/mLCTogus VA Medical Center on above: Classification of 25 [place] Vitamin D status: Deficiency/Insufficiency: < or = 30 ng/ml. Sufficiency/Optimal Levels: 31-80 ng/mL Toxicity: > 100 ng/mL. Test performed by chemiluminescent immunoassay. DNA EXTRACTION BLOODOrdered By: Dominga Araujo on 02-77-5705TDXGPNMLOPVUL (NG/UL)189.3 ng/ulBethesda North HospitalTotal Yield94.65 [facility] on above:Specimens will be available for 3 years from date of collection. To order testing on this specimen for [facility] patients, please place an Epic order for DNA and RNA for Clinical Testing (SQNUCADD). To order for patients outside of the [facility] system, please request DNA and RNA for Clinical Testing, order code NUCADD. If additional paperwork is required for testing, please email completed forms to . VOLUME (UL) OF [id number] uLTriHealth Bethesda North HospitalCNOVon 27-30-9142COFI NormalOhiohealth Riverside Methodist HospitalDNA EXTRACTION BLOODon 17-73-4218WCXLIBWQERXVZ (NG/UL)189.3 ng/ulNoGrant Hospital on above:Order Comment: Specimen Type: BLOOD SPECIMENOrdering Facility: [facility] Address:[address] [place], [place] [address]Performed By: #### NUCBLD ####[facility] LIMSCLIA [id number] [place] [address] [place] OF AMERICATOTAL YIELD94.65 ugNoGrant Hospital on above:Order Comment: Specimen Type: BLOOD SPECIMENOrdering Facility: [facility] Address:[address] [place], [place] [address]Result Comment: Specimens will be available for 3 years from date of collection. To order testing on this specimen for [facility] patients, please place an Epic order for DNA and RNA for Clinical Testing (SQNUCADD). To order for patients outside of the [facility] system, please request DNA and RNA for Clinical Testing, order code NUCADD.If additional paperwork is required for testing,please email completed forms to . Performed By: #### NUCBLD ####[facility] LIMSCLIA [id number] [place] [address] [place] AMERICAVOLUME (UL) OF JUI252 uLNormVeterans Health Administration on above:Order Comment: Specimen Type: BLOOD SPECIMENOrdering Facility: [facility] Address:[address] [place], [place] [address]Performed By: #### NUCBLD ####[facility] LIMSCLIA [id number] [place] [id number] [place] AMERICACNPNon 43-94-5371BQUIHvjaleGzdqtwpik Clinic ClevelandCNPNon 09-13-2024 CNPNNormalOhiohealth Riverside Methodist HospitalCNOVSPon 94-45-0063RFGLCXUkilswWtatgxjpe Clinic ClevelandCNPNon 96-72-9481EGJHRuiuqrPqhpmkqqc Clinic [place] IMMUNOGLOBULINS,IGG,IGA,IGMon 40-81-8849FvC [Mass/Vol]163 mg/yNIhlxru08-927 [facility] on above:Order Comment: Specimen Type: BLOOD SPECIMENOrdering Facility: [facility] Address:[address] [place], [place] [address]Performed By: #### SERIMM ####[facility] LABCLIA [id number] [address] STATES AMERICAIgG [Mass/Vol]599 mg/fKEno081-4438KbsevfiorOhio State University [facility] on above:Order Comment: Specimen Type: BLOOD SPECIMENOrdering Facility: [facility] Address:[address] [place], [place] [address]Performed By: #### SERIMM ####[facility] LABCLIA [id number] [place] [address] [place] AMERICAIgM [Mass/Vol]387 mg/dL Fgkc80-768QngesluyxOhio State University [facility] on above:Order Comment: Specimen Type: BLOOD SPECIMENOrdering Facility: [facility] Address:[address] [place], [place] [address]Performed By: #### SERIMM ####[facility] LABCLIA [id number] [place] [address] [place] AMERICALaboratory - Chemistry and Chemistry - challengeon 22-37-6164JvF [Mass/Vol]163 mg/dL70 - 400 mg/dLBethesda North HospitalIgG [Mass/Vol]599 mg/qOOta989 - 1600 mg/dLBethesda North HospitalIgM [Mass/Vol]387 mg/uVYeqi40 - 230 mg/dLBethesda North HospitalNo Panel Informationon 83-51-9350Dczweqzhljssho and review of laboratory resultsAbnormalCFirelands Regional Medical Center South Campus W Auto Differential panel (Bld)on 43-51-3615Wkgcxvvuy (Bld) [#/Vol]0.06 10*3/uLNormal <0.11CChillicothe Hospital on above:Order Comment: Specimen Type: BLOOD SPECIMENOrdering Facility: [facility] Address:[address] [place], [place] [address]Performed By: #### 92456-8 ####[facility] LABCLIA [id number] [place] [address] Basophils/100 WBC (Bld)0.5 %NormalOhio State University [facility] on above: Order Comment: Specimen Type: BLOOD SPECIMENOrdering Facility: [facility] Address:[address] [place], [place] [address]Performed By: #### 79187- 8 ####[facility] LABCLIA [id number] [place], [place] [address]Cdzxxvktselh cell count method Nom (Bld)AutoNormal [facility] on above:Order Comment: Specimen Type: BLOOD SPECIMENOrdering Facility: [facility] Address:[address] [place], [place] [address]Performed By: #### 42494-5 ####[facility] LABCLIA [id number] [place], [place] [address]Zzfxmmnfpaa (Bld) [#/Vol]0.08 10*3/uLNormal<0.46[facility] on above: Order Comment: Specimen Type: BLOOD SPECIMENOrdering Facility: [facility] Address:[address] [place], [place] [address]Performed By: #### 70000- 8 ####[facility] LABCLIA [id number] [place], [place] [address]Ysxxedahvnl/100 WBC (Bld)0.6 %NormalOhio State University [facility] on above:Order Comment: Specimen Type: BLOOD SPECIMENOrdering Facility: [facility] Address:[address] [place], [place] [address]Performed By: #### 56267-5 ####[facility] LABCLIA [id number] [place], [place] [address]Srtmouflber distribution width (RBC) [Ratio]16.0 %High11.5-15.0[facility] on above:Order Comment: Specimen Type: BLOOD SPECIMENOrdering Facility: [facility] Address:[address] [place], [place] [address]Performed By: #### [id number]- 8 ####[facility] LABIA [id number] [place], [place] [address]Fqtmhjvams (Bld) [Volume fraction]42.9 %Slwwih62.0-46.0 [place] [facility] [facility] on above:Order Comment: Specimen Type: BLOOD SPECIMENOrdering Facility: [facility] Address:[address] [place], [place] [address]Performed By: #### 90668-4 ####[facility] LABIA [id number] [place], [place] [address]Zchmrukhho (Bld) [Mass/Vol]13.8 g/mWBxclsx22.5-15.5CChillicothe Hospital on above: Order Comment: Specimen Type: BLOOD SPECIMENOrdering Facility: [facility] Address:[address] [place], [place] [address]Performed By: #### 55033- 8 ####[facility] LABIA [id number] [place], [place] [address]Zrnnuyyv granulocytes (Bld) [#/Vol]0.23 10*3/uLHigh<0.10 [facility] on above:Order Comment: Specimen Type: BLOOD SPECIMENOrdering Facility: [facility] Address:[address] [place], [place] [address]Performed By: #### 51630-2 ####[facility] LABCLIA [id number] [place], [place] [address]Azcdkvsg granulocytes/100 WBC (Bld)1.8 %NormalOhio State [facility] on above: Order Comment: Specimen Type: BLOOD SPECIMENOrdering Facility: [facility] Address:[address] [place], [place] [address]Performed By: #### 09966- 8 ####[facility] LABCLIA [id number] [place], [place] [address]Aveptehppes (Bld) [#/Vol]2.07 10*3/uLNormal1.00-4.00 [facility] on above:Order Comment: Specimen Type: BLOOD SPECIMENOrdering Facility: [facility] Address:[address] [place], [place] [address]Performed By: #### 73079-1 ####[facility] LABIA [id number] [place], [place] [address]Wrubzsuvlqc/100 WBC (Bld)15.8 %NormalOhio State [facility] on above:Order Comment: Specimen Type: BLOOD SPECIMENOrdering Facility: [facility] Address:[address] [place], [place] [address]Performed By: #### 36815-7 ####[facility] LABCLIA [id number] [place], [place] [address]WNE (RBC) [Entitic mass]30.2 ajRqwzbg61.0-34.0[facility] on above:Order Comment: Specimen Type: BLOOD SPECIMENOrdering Facility: [facility] Address:[address] [place], [place] [address]Performed By: #### 90570-9 ####[facility] LABIA [id number] [place], [place] [address]WBAT (RBC) [Mass/Vol]32.2 g/gERrpehz24.5-36.0[facility] on above: Order Comment: Specimen Type: BLOOD SPECIMENOrdering Facility: [facility] Address:[address] [place], [place] [address]Performed By: #### 27783- 8 ####[facility] LABCLIA [id number] [place], [place] [address]WCZ (RBC) [Entitic vol]93.9 kFTgxuim08.0-100.0[facility] on above:Order Comment: Specimen Type: BLOOD SPECIMENOrdering Facility: [facility] Address:[address] [place], [place] [address]Performed By: #### 74941-4 ####[facility] LABCLIA [id number] [place], [place] [address]Qasmclskh (Bld) [#/Vol]0.86 10*3/uLNormal<0.87[facility] on above:Order Comment: Specimen Type: BLOOD SPECIMENOrdering Facility: [facility] Address:[address] [place], [place] [address]Performed By: #### 06004- 8 ####[facility] LABCLIA [id number] [place], [place] [address]Wvqedglto/100 WBC (Bld)6.6 %NormalOhio State [facility] on above:Order Comment: Specimen Type: BLOOD SPECIMENOrdering Facility: [facility] Address:[address] [place], [place] [address]Performed By: #### 10266-0 ####[facility] LABIA [id number] [place], [place] [address]Yosuvjwjebj (Bld) [#/Vol]9.82 10*3/uLHigh1.45-7.50[facility] on above:Order Comment: Specimen Type: BLOOD SPECIMENOrdering Facility: [facility] Address:[address] [place], [place] [address]Performed By: #### 16013-6 ####[facility] LABCLIA [id number] [place], [place] [address]Igpoqgqqtly/100 WBC (Bld)74.7 %NormalOhio State [facility] on above:Order Comment: Specimen Type: BLOOD SPECIMENOrdering Facility: [facility] Address:[address] [place], [place] [address]Performed By: #### 53215-6 ####[facility] LABCLIA [id number] [place], [place] [address]Enciwqhis RBC (Bld) [#/Vol] 10*3/uLNormal<0.01[facility] on above:Order Comment: Specimen Type: BLOOD SPECIMENOrdering Facility: [facility] Address:[address] [place], [place] [address]Performed By: #### 95729-5 ####[facility] LABIA [id number] [place], [place] [address]Nyvdwmled RBC/100 WBC (Bld) [Ratio]0.0 /100 WBCNormal [facility] on above:Order Comment: Specimen Type: BLOOD SPECIMENOrdering Facility: [facility] Address:[address] [place], [place] [address]Performed By: #### 36086-2 ####[facility] LABIA [id number] [place], [place] [address]Dwicexvb mean volume (Bld) [Entitic vol]9.5 fLNormal9.0-12.7CChillicothe Hospital on above:Order Comment: Specimen Type: BLOOD SPECIMENOrdering Facility: [facility] Address:[address] [place] [address] Performed By: #### 51569-0 ####[facility] LABIA [id number] [place], [place] [address]Axipituhw (Bld) [#/Vol]291 10*3/jFHmczaj045-212GupsxjyvvOhio State [facility] on above:Order Comment: Specimen Type: BLOOD SPECIMENOrdering Facility: [facility] Address:[address] [place], [place] [address]Performed By: #### 73003-8 ####[facility] LABCLIA [id number] [place], [place] [address]SGG (Bld) [#/Vol]4.57 10*6/uLNormal3.90-5.20[facility] on above:Order Comment: Specimen Type: BLOOD SPECIMENOrdering Facility: [facility] Address:[address] [place], [place] [address]Performed By: #### 60329-8 ####[facility] LABCLIA [id number] [place], [place] [address]HRY (Bld) [#/Vol]13.12 10*3/uLHigh3.70-11.00[facility] on above: Order Comment: Specimen Type: BLOOD SPECIMENOrdering Facility: [facility] Address:[address] [place], [place] [address]Performed By: #### 76026- 8 ####[facility] LABCLIA [id number] [place], [place] [address]Mfcuvysthduqu metabolic 2000 panelon 67-19-6935Udczosg [Mass/Vol]4.2 g/dLNormal3.9-4.9CChillicothe Hospital on above:Order Comment: Specimen Type: BLOOD SPECIMENOrdering Facility: [facility] Address:[address] [place], [place] [address]Performed By: #### 50040- 8 ####[facility] LABIA [id number] [place], [place] [address]DMS [Catalytic activity/Vol]69 U/VGmlrso99-663XkgqmyjerOhio State [facility] on above:Order Comment: Specimen Type: BLOOD SPECIMENOrdering Facility: [facility] Address:[address] [place], [place] [address]Performed By: #### 77628-0 ####[facility] LABCLIA [id number] [place], [place] [address]PUT [Catalytic activity/Vol]38 U/LNormal7-38[facility] on above:Order Comment: Specimen Type: BLOOD SPECIMENOrdering Facility: [facility] Address:[address] [place], [place] [address]Performed By: #### 62335- 8 ####[facility] LABCLIA [id number] [facility] [place], [place] [address]Zcpow gap [Moles/Vol]12 mmol/LNormal8-15[facility] on above:Order Comment: Specimen Type: BLOOD SPECIMENOrdering Facility: [facility] Address:[address] [place], [place] [address]Performed By: #### 26538-3 ####[facility] LABCLIA [id number] [facility] [place], [place] [address]XXG [Catalytic activity/Vol]15 U/UUhyoyp73-05EvzgpybzaOhio State [facility] on above:Order Comment: Specimen Type: BLOOD SPECIMENOrdering Facility: [facility] Address:[address] [place], [place] [address]Performed By: #### 72202-2 ####[facility] LABCLIA [id number] [place] [address] Bilirubin [Mass/Vol]0.2 mg/dLNormal0.2-1.3CCh[facility]icothe Hospital on above:Order Comment: Specimen Type: BLOOD SPECIMENOrdering Facility: [facility] Address:[address] [place], [place] [address]Performed By: #### 22326-7 ####[facility] LABCLIA [id number] [facility] CENTERMAGGYW[place]ER[place], [place] [address]Gmrffgi [Mass/Vol]10.3 mg/dLHigh8.5-10.2CCh[facility]ic[facility] on above:Order Comment: Specimen Type: BLOOD SPECIMENOrdering Facility: [facility] Address:[address] [place], [place] [address]Performed By: #### 43151-6 ####[facility] LABCLIA [id number] [place], [place] [address]Ogluvbcq [Moles/Vol]101 mmol/STxygni71-788SqwhwofyhOhio State [facility] on above: Order Comment: Specimen Type: BLOOD SPECIMENOrdering Facility: [facility] Address:[address] [place], [place] [address]Performed By: #### 75658- 8 ####[facility] LABCLIA [id number] [place], [place] [address]WJ8 [Moles/Vol]26 mmol/CArpvkf84-92GohjtiwmuOhio State [facility] on above:Order Comment: Specimen Type: BLOOD SPECIMENOrdering Facility: [facility] Address:[address] [place], [place] [address]Performed By: #### 52209-4 ####[facility] LABCLIA [id number] [place], [place] [address]Mxnkfhkbkz [Mass/Vol]0.64 mg/dL Normal0.58-0.96[facility] on above:Order Comment: Specimen Type: BLOOD SPECIMENOrdering Facility: [facility] Address:[address] [place], [place] [address]Performed By: #### 79686-6 ####[facility] LABCLIA [id number] [place], [place] [address]Dkwabkmirp and Glomerular filtration rate.predicted panel (S/P/Bld)113 mL/min/1.73m???Normal>=60[facility] on above:Order Comment: Specimen Type: BLOOD SPECIMENOrdering Facility: [facility] Address:[address] [place], [place] [address]Result Comment: Estimated Glomerular Filtration Rate (eGFR) is calculated using the 2020 CKD-EPI creatinine equation. This equation utilizes serum creatinine, sex, and age as parameters. The creatinine assay has traceable calibration to isotope dilution- mass spectrometry. Refer to KDIGO guidelines for clinical interpretation. In patients with unstable renal function, e.g. those with acute kidney injury, the eGFR may not accurately reflect actual GFR.Performed By: #### 36580-7 ####[facility] LABCLIA [id number] [place], [place] [address]Zkgmxxn [Mass/Vol]139 mg/tIFave44-36JdxdrnucxOhio State [facility] on above:Order Comment: Specimen Type: BLOOD SPECIMENOrdering Facility: [facility] Address:[address] [place], [place] [address]Result Comment: The [place] Diabetes Association (ADA) provides guidance for cutoff values for fasting glucose and random glucose. The ADA defines fasting as no caloric intake for at least 8 hours. Fasting plasma glucose results between 100 to 125 mg/dL indicate increased risk for diabetes (prediab etes).Fasting plasma glucose results greater than or equal to 126 mg/dL meet the criteria for diagnosis of diabetes. In the absence of unequivocal hyperglycemia, results should be confirmed by repeattesting. In a patient with classic symptoms of hyperglycemia or hyperglycemic crisis, random plasmaglucose results greater than or equal to 200 mg/dL meet the criteria for diagnosis of diabetes.Reference: Standards of Medical Care in Diabetes 2016, [place] Diabetes Association. Diabetes Care. 2016.39(Suppl 1).Performed By: #### 61167-2 ####[facility] LABCLIA [id number] [place], [place] [address]Zyhdsdkvu [Moles/Vol]4.4 mmol/LNormal3.7-5.1CChillicothe Hospital on above:Order Comment: Specimen Type: BLOOD SPECIMENOrdering Facility: [facility] Address:[address] [place], [place] [address]Llveoqouq By: #### 50403-6 ####[facility] LABCLIA [id number] [place], [place] [address]Uwjeqet [Mass/Vol]7.1 g/dLNormal6.3-8.0[facility] ClevelandComment on above:Order Comment: Specimen Type: BLOOD SPECIMENOrdering Facility: [facility] Address:[address] [place], [place] [address]Performed By: #### 22738- 8 ####[facility] LABCLIA [id number] [place], [place] [address]Oicqxc [Moles/Vol]139 mmol/ETdgjfl604-110VssejfejnOhio State [facility] on above:Order Comment: Specimen Type: BLOOD SPECIMENOrdering Facility: [facility] Address:[address] [place], [place] [address]Performed By: #### 74044-9 ####[facility] LABCLIA [id number] [place], [place] [address]Fjpn nitrogen [Mass/Vol]18 mg/dLNormal7-21[facility] on above:Order Comment: Specimen Type: BLOOD SPECIMENOrdering Facility: [facility] Address:[address] [place], [place] [address]Performed By: #### 72055-5 ####[facility] LABCLIA [id number] [place], [place] [address]Fzkyxlia SerPl-mCncon 62-60-2775Esmrfphv [Mass/Vol]43.1 ng/hIFgntok67.7-205.1CMary Rutan HospitalComcorewell health gerber [facility] on above:Order Comment: Specimen Type: BLOOD SPECIMENOrdering Facility: [facility] Address:[address] [place], [place] [address]Performed By: #### 2132-9, 2284-8, 2276-4, 44380-7 ####[facility] LABCLIA [id number] [facility] [place] [address] [place] OF AMERICAFolate SerPl-mCncon 33-98-5192Sqqvza [Mass/Vol]ng/mLNormal>4.7CChillicothe Hospital on above:Order Comment: Specimen Type: BLOOD SPECIMENOrdering Facility: [facility] Address:[address] [place], [place] [address]Result Comment: A result of > 20 ng/mL is not necessarily indicative of a pathologic or treatable condition: it reflects a limitation of the test methodology.Assay reference range: 4.8 to 24.2 ng/mL. Suitable for detection of folate deficiency.Reference:Folate III (Folate III) [package insert V 1.0 [place]]. [facility], [place], [place]: March 2015.Performed By: #### 2132-9, 2284-8, 2276-4, 27746-8 ####[facility] LABCLIA [id number] [place] [id number] [place] OF AMERICAIg SerPl-mCnc on 17-66-1759UiK [Mass/Vol]729 mg/iGClylks368-4434MntyzaeavOhiohealth [facility] Comment on above:Order Comment: Specimen Type: BLOOD SPECIMENOrdering Facility: [facility] Address:[address] [place] [address] Performed By: #### 2465-3 ####[facility] LABCLIA [id number] [address] STATES OF [place] [employer] binding capacity panelon 77-45-9642Gqrm [Mass/Vol]80 ug/dLNormal 41-186[facility] on above:Order Comment: Specimen Type: BLOOD SPECIMENOrdering Facility: [facility] Address:[address] [place], [place] [address]Performed By: #### 2132-9, 2284-8, 6-4, 56011-4 ####[facility] LABIA [id number] [address] STATES OF [facility] HOSPITALIron binding capacity [Mass/Vol] 416 ug/aACzoe702-193UrkeqnpabOhio State [facility] on above:Order Comment: Specimen Type: BLOOD SPECIMENOrdering Facility: [facility] Address:[address] [place], [place] [address]Performed By: #### 2132-9, 2284-8, 6-4, 72190-4 ####[facility] LABCLIA [id number] [place] [id number] [place] OF AMERICAIron/TIBC [Molar ratio]19.2 %Enucvc15.0-57.0[facility] on above:Order Comment: Specimen Type: BLOOD SPECIMENOrdering Facility: [facility] Address:[address] [place], [place] [address]Performed By: #### 2132- 9, 2284-8, 2276-4, 86323-3 ####[facility] LABCLIA [id number] [place] [id number] [place] OF AMERICAVit B12 SerPl-mCncon 42-90-9703Mxfcqznra (Vitamin B12) [Mass/Vol]555 pg/gUXytycu505-5460 [facility] on above:Order Comment: Specimen Type: BLOOD SPECIMENOrdering Facility: [facility] Address:[address] [place], [place] [address]Performed By: #### 2132-9, 2284-8, 2276-4, 14979-1 ####[facility] LABCLIA [id number] [place] [id number] [place] OF AMERICACNPNon 62-60-9920MVNNGmthpm [facility] Thyroid glandon 28-62-7656[place]xi[place] [address] Ultrasound Report Signed Patient: ARIADNA HALEY MR#: [id number] : 1980 Acct:[id number] Age/Sex: 43 / F ADM Date: 08/24/24 Loc: US Attending Dr: Gordo Barfield M.D. Ordering Physician: Gordo Barfield M.D. Date of Service: 08/24/24 Procedure(s): US thyroid Accession Number(s): [id number] cc: GAY DE LA TORRE ; Gordo Barfield M.D. [address] [address] Patient Name: ARIADNA HALEY MRN: [facility]:[id number] date: 1980 Sex: F Assigned Patient Location: US Current Patient Location: US Accession/Order Number: [id number] Exam Date: 08/24/2024 09:09 Report Date: 08/24/2024 [...] this was thought to be cystic. The water fitness instructor today considered it solid and it was given TI-RADS 4 classification. No internal color flow is shown. Size has not significantly changed when measuring in a comparable manner. No other nodularity is seen. US/US thyroid IMPRESSION: SIMILAR SMALL LEFT THYROID NODULE. FOLLOW-UP IN ONE YEAR IS SUGGESTED. Impression dictated by: Simin Nelson M.D.08/24/2024 9:22 AM Dictation Location: [place] [address] Electronically authenticated by: [id number] Y Date: 08/24/2024 09:22 Dictated By: Simin Nelson M.D. Signed By: 08/24/24923 DD/ 1 TD/TT: District Sales Leader:BAIRONadiology, Radiologist, - 08/24/2024 [place] [address] Ultrasound Report Signed Patient: ARIADNA HALEY MR#: [id number] : 1980 Acct:[id number] Age/Sex: 43 / F ADM Date: 08/24/24 Loc: US Attending Dr: Gordo Bafrield M.D. Ordering Physician: Gordo Barfield M.D. Date of Service: 08/24/24 Procedure(s): US thyroid Accession Number(s): [id number] cc: AGY DE LA TORRE ; Gordo Barfield M.D. [place] [address] Patient Name: ARIADNA HALEY MRN: [facility]:[id number] date: 1980 Sex: F Assigned Patient Location: US Current Patient Location: US Accession/Order Number: [id number] Exam Date: 08/24/2024 09:09 Report Date: 08/24/2024 [...] this was thought to be cystic. The water fitness instructor today considered it solid and it was given TI-RADS 4 classification. No internal color flow is shown. Size has not significantly changed when measuring in a comparable manner. No other nodularity is seen. US/US thyroid IMPRESSION: SIMILAR SMALL LEFT THYROID NODULE. FOLLOW-UP IN ONE YEAR IS SUGGESTED. Impression dictated by: Simin Nelson M.D.08/24/2024 9:22 AM Dictation Location: [place] [address] Electronically authenticated by: [id number] Y Date: 08/24/2024 09:22 Dictated By: Simin Nelson M.D. Signed By: 08/24/24923 DD/ 1 TD/TT: District Sales Leader: MABLE GlezRadiology Study observation (narrative)MABLE Rao Thyroid glandOrdered By: Radiologist Radiology on 86-81-6046[facility] Work Phone: cNPNon 90-10-6280MOKSZntrfxUkjsmzqnz [facility] HCG ( test) IA.rapid Ql (U)Ordered By: Adolfo Kang on 94-68-1872MIV ( test) Ql (U)Urine human chorionic gonadotropin (hCG) detection by immunoassayPremier Health Miami Valley HospitalHCG,Urineon 01-09-2026Dnlk HCG ( test) Ql (U)NegativeNoHaywood Regional Medical Center Physician GroupComment on above:Result Comment: PERFORMED BY: [facility] [address] [place] [address] PATHOLOGIST EMPLOYEE OPERATIONS EXAMINER HAYDEN LLAMAS M.D.Performed By: #### UHCG #### [facility] [address] [place] [id number] USACNOVon 40-66-8781NGOEItlrbfIqwkgtjiu Clinic ClevelandCNPN on 57-10-8712TULVTyzinjTmjnvovuj Clinic Ulltydwyy00([place])D3 SerPl-ncon 798407-vlrpwyfvkchrol D3 [Mass/Vol]28.5 ng/mLLow31.0-80.0[facility] HospitalComment on above:Order Comment: Specimen Type: BLOOD SPECIMENOrdering Facility: [facility] Address:[address] [place], [place] [address]Result Comment: Classification of 25 [place] Vitamin D status:Deficiency/Insufficiency: < or = 30 ng/ml.Sufficiency/Optimal Levels: 31- 80 ng/mLToxicity: > 100 ng/mL.Test performed by chemiluminescent immunoassay. Performed By: #### 1989-3 ####[facility] LABCLIA [id number] [address] OF [facility] CBC panel Auto (Bld)on 51-98-0841Qtprdnamwhi distribution width (RBC) [Ratio] 14.3 %Ijpthi58.5-15.0[facility] on above:Order Comment: Specimen Type: BLOOD SPECIMENOrdering Facility: [facility] Address:[address] [place], [place] [address]Performed By: #### 80312-2 ####[facility] LABCLIA [id number] [address] STATES OF AMERICAHematocrit (Bld) [Volume fraction]41.3 %Vzxszn50.0-46.0 [facility] on above:Order Comment: Specimen Type: BLOOD SPECIMENOrdering Facility: [facility] Address:[address] [place], [place] [address]Performed By: #### 38070-3 ####[facility] LABIA [id number] [place] [address] [facility] MEDICAL CENTERHemoglobin (Bld) [Mass/Vol]13.5 g/eGQpstep79.5-15.5CChillicothe Hospital on above:Order Comment: Specimen Type: BLOOD SPECIMENOrdering Facility: [facility] Address:[address] [place], [place] [address]Performed By: #### 01722-4 ####[facility] MEDICAL CENTERAnahi [facility] LABIA [id number] [place] [address] [facility]PITALH (RBC) [Entitic mass]30.4 grWfbiei78.0-34.0[facility] on above:Order Comment: Specimen Type: BLOOD SPECIMENOrdering Facility: [facility] Address:[address] [place], [place] [address]Performed By: #### 36776-6 ####[facility] LABIA [id number] [place] [id number] [facility] (RBC) [Mass/Vol]32.7 g/xUPtbfxi24.5-36.0[facility] on above: Order Comment: Specimen Type: BLOOD SPECIMENOrdering Facility: [facility] Address:[address] [place], [place] [address]Performed By: #### [id number]- 2 ####[facility] LABIA [id number] [place] [id number] [facility] (RBC) [Entitic vol]93.0 hAScuwfh68.0-100.0[facility] on above:Order Comment: Specimen Type: BLOOD SPECIMENOrdering Facility: [facility] Address:[address] [place], [place] [address]Performed By: #### [id number] ####[facility] LABIA [id number] [place] [address] [facility]ENTERucleated RBC (Bld) [#/Vol]10*3/uL Normal<0.01[facility] on above:Order Comment: Specimen Type: BLOOD SPECIMENOrdering Facility: [facility] Address:[address] [place], [place] [address]Performed By: #### 01455-6 ####[facility] LABIA [id number] [place] [id number] [facility] Platelet mean volume (Bld) [Entitic vol]9.8 fLNormal9.0-12.7CChillicothe Hospital on above:Order Comment: Specimen Type: BLOOD SPECIMENOrdering Facility: [facility] Address:[address] [place], [place] [address]Performed By: #### 93600-7 ####[facility] LABIA [id number] [place] [id number] [facility] CENTERPlatelets (Bld) [#/Vol]341 10*3/uL Krhscq238-326GpcmjuqfzOhio State University [facility] on above:Order Comment: Specimen Type: BLOOD SPECIMENOrdering Facility: [facility] Address:[address] [place], [place] [address]Performed By: #### 45489-4 ####[facility] LABIA [id number] [place] [address] [place] BETHES[facility] NORTH HOSPITALRBC (Bld) [#/Vol]4.44 10*6/uLNormal3.90-5.20[facility] on above:Order Comment: Specimen Type: BLOOD SPECIMENOrdering Facility: [facility] Address:[address] [place], [place] [address]Performed By: #### 36564-9 ####[facility] LABIA [id number] [place] [address] [place] OF AMERICAWBC (Bld) [#/Vol]12.66 10*3/uLHigh3.70-11.00[facility] on above:Order Comment: Specimen Type: BLOOD SPECIMENOrdering Facility: [facility] Address:[address] [place], [place] [address]Performed By: #### 42611-0 ####[facility] LABIA [id number] [place] [address] [place] STATES OF AMERICACRP SerPl-mCncon 28-24-4612QAH [Mass/Vol]0.1 mg/dLNormal<0.9CChillicothe Hospital on above:Order Comment: Specimen Type: BLOOD SPECIMENOrdering Facility: [facility] Address:[address] [place], [place] [address]Performed By: #### 1987-09, ####[facility] CENTERAnahi [facility] LABIA [id number] [address] STATES OF AMERICAComprehensive metabolic 2000 panelon 60-08-4338Npxlgqh [Mass/Vol]4.0 g/dLNormal3.9-4.9CChillicothe Hospital on above:Order Comment: Specimen Type: BLOOD SPECIMENOrdering Facility: [facility] Address:[address] [place], [place] [address]Performed By: #### 1987-09, ####[facility] LABIA [id number] [place] [address] [place] OF AMERICAALP [Catalytic activity/Vol]52 U/YJsvovp81-639ZajwxiigsOhio State University [facility] on above:Order Comment: Specimen Type: BLOOD SPECIMENOrdering Facility: [facility] Address:[address] [place], [place] [address]Performed By: #### , ####[facility]ENTERAnahi [facility] LABCLIA [id number] [place] [address] [place] OF AMERICAALT [Catalytic activity/Vol]26 U/LNormal7-38[facility] on above:Order Comment: Specimen Type: BLOOD SPECIMENOrdering Facility: [facility] Address:[address] [place], [place] [address]Performed By: #### 1987-09, ####[facility] LABCLIA [id number] [place] [address] [place] OF AMERICAAnion gap [Moles/Vol]10 mmol/LNormal8-15[facility] on above:Order Comment: Specimen Type: BLOOD SPECIMENOrdering Facility: [facility] Address:[address] [place], [place] [address]Performed By: #### , ####[facility] LABCLIA [id number] [place] [address] [place] OF AMERICAAST [Catalytic activity/Vol]12 U/LLpl21-13CwrgxtvlcOhio State University [facility] on above:Order Comment: Specimen Type: BLOOD SPECIMENOrdering Facility: [facility] Address:[address] [place], [place] [address]Performed By: #### 1987-09, ####[facility] LABCLIA [id number] [place] [address] [place] OF AMERICABilirubin [Mass/Vol]0.3 mg/dLNormal0.2-1.3CChillicothe Hospital on above:Order Comment: Specimen Type: BLOOD SPECIMENOrdering Facility: [facility] Address:[address] [place], [place] [address]Performed By: #### , ####[facility] LABCLIA [id number] [place] [address] [place] OF AMERICACalcium [Mass/Vol]9.5 mg/dLNormal8.5-10.2CChillicothe Hospital on above:Order Comment: Specimen Type: BLOOD SPECIMENOrdering Facility: [facility] Address:[address] [place], [place] [address]Performed By: #### 1987-09, ####[facility]ERT [facility] LABCLIA [id number] [place] [address] [place] OF AMERICAChloride [Moles/Vol]103 mmol/FInwuve92-992MinioycjgOhio State University [facility] on above: Order Comment: Specimen Type: BLOOD SPECIMENOrdering Facility: [facility] Address:[address] [place], [place] [address]Performed By: #### , ####[facility] CENTERAnahi [facility] LABIA [id number] [place] [address] [place] AMERICACO2 [Moles/Vol]27 mmol/JXvpcwk57-83XxupdvonlOhio State University [facility] on above:Order Comment: Specimen Type: BLOOD SPECIMENOrdering Facility: [facility] Address:[address] [place], [place] [address]Performed By: #### 1987-09, ####[facility]ENTERAnahi [facility] LABIA [id number] [place] [address] [place] OF AMERICACreatinine [Mass/Vol]0.78 mg/dLNormal0.58-0.96[facility] on above:Order Comment: Specimen Type: BLOOD SPECIMENOrdering Facility: [facility] Address:[address] [place], [place] [address]Performed By: #### 1987-09, ####[facility]ENTERT [facility] LABIA [id number] [place] [address] [place] OF AMERICACreatinine and Glomerular filtration rate.predicted panel (S/P/Bld)97 mL/min/1.73m???Normal>=60[facility] on above: Order Comment: Specimen Type: BLOOD SPECIMENOrdering Facility: [facility] Address:[address] [place], [place] [address]Result Comment: Estimated Glomerular Filtration Rate (eGFR) is calculated using the 2020 CKD-EPI cre atinine equation. This equation utilizes serum creatinine, sex, and age as parameters. The creatinine assay has traceable calibration to isotope dilution- mass spectrometry. Refer to KDIGO guidelines for clinical interpretation. In patients with unstable renal function, e.g. those with acute kidney injury, the eGFR may not accurately reflect actual GFR.Performed By: #### 1987-09, ####[facility] LABCLIA [id number] [place] [address] [place] OF AMERICAGlucose [Mass/Vol]116 mg/fRZork98-38TeupmavtlOhiohealth Riverside Methodist [facility] Comment on above:Order Comment: Specimen Type: BLOOD SPECIMENOrdering Facility: [facility] Address:[address] [place], [place] [address]Result Comment: The [place] Diabetes Association (ADA) provides guidance for cutoff values for fasting glucose and random glucose. The ADA defines fasting as no caloric intake for at least 8 hours. Fasting plasma glucose results between 100 to 125 mg/dL indicate increased risk for diabetes (prediabetes).Fasting plasma glucose results greater than or equal to 126 mg/dL meet the criteria for diagno sis of diabetes. In the absence of unequivocal hyperglycemia, results should be confirmed by repeattesting. In a patient with classic symptoms of hyperglycemia or hyperglycemic crisis, random plasmaglucose results greater than or equal to 200 mg/dL meet the criteria for diagnosis of diabetes.Reference: Standards of Medical Care in Diabetes 2016, [place] Diabetes Association. Diabetes Care. 2016.39(Suppl 1).Performed By: #### 1987-09, ####[facility] LABCLIA [id number] [place] [address] [place] AMERICAPotassium [Moles/Vol]3.8 mmol/LNormal3.7-5.1CMary Rutan HospitalComment on above: Order Comment: Specimen Type: BLOOD SPECIMENOrdering Facility: [facility] Address:[address] [place], [place] [address]Iyafpmxcg By: #### , ####[facility] CENTERAnahi [facility] LABCLIA [id number] [place] [address] [place] AMERICAProtein [Mass/Vol]7.6 g/dLNormal6.3-8.0[facility] on above:Order Comment: Specimen Type: BLOOD SPECIMENOrdering Facility: [facility] Address:[address] [place], [place] [address]Performed By: #### 1987-09, 68745-0 ####[facility] CENTERAnahi [facility] LABCLIA [id number] [place] [address] [place] AMERICASodium [Moles/Vol]140 mmol/POlmtnj685-488HafexrqvkOhio State University [facility] on above:Order Comment: Specimen Type: BLOOD SPECIMENOrdering Facility: [facility] Address:[address] [place], [place] [address]Performed By: #### 1987-09, ####[facility] CENTERAnahi [facility] LABCLIA [id number] [place] [address] [place] OF AMERICAUrea nitrogen [Mass/Vol]18 mg/dLNormal12-11[facility] on above:Order Comment: Specimen Type: BLOOD SPECIMENOrdering Facility: [facility] Address:[address] [place], [place] [address]Performed By: #### 1987-09, ####[facility] CENTERAnahi [facility] LABIA [id number] [place] [address] [place] OF AMERICAESR Westergren method (Bld) [Velocity]on 29-95-9569FDC (Bld) [Velocity]28 mm/hHigh0-20[facility] on above:Order Comment: Specimen Type: BLOOD SPECIMENOrdering Facility: [facility] Address:[address] [place], [place] [address]Performed By: #### 4537-7 ####[facility] LABCLIA [id number] [place] [address] [place] CNPNon 29-62-6442RSCRFxickuUwzemtkkcKettering Health HEALTHon 06-13-[address] [facility] W Auto Differential panel (Bld) on 14-44-4574Fiwgwzefv (Bld) [#/Vol]0.10 10*3/uLNINFBethesda North Hospital Basophils/100 WBC (Bld)0.7 %Melendez ClinicDifferential cell count method Nom (Bld)AutoCleveland ClinicEosinophils (Bld) [#/Vol]0.15 10*3/uLNINFBethesda North HospitalEosinophils/100 WBC (Bld)1.1 %[facility] North HospitalErythrocyte distribution width (RBC) [Ratio]14.2 %11.5 - 15.0 %[facility] North HospitalHematocrit (Bld) [Volume fraction]39.0 %36.0 - 46.0 %[facility] North HospitalHemoglobin (Bld) [Mass/Vol]13.0 g/dL 11.5 - 15.5 g/dLBethesda North HospitalImmature granulocytes (Bld) [#/Vol]0.21 10*3/uL HighNINFBethesda North HospitalImmature granulocytes/100 WBC (Bld)1.5 %[facility] Interpretation and review of laboratory resultsAbnormalCSumma Health [facility] Lymphocytes (Bld) [#/Vol]2.16 10*3/uLBethesda North HospitalLymphocytes/100 WBC (Bld) 15.4 %[facility] HospitalH (RBC) [Entitic mass]30.5 pg26.0 - 34.0 pgClevelRidgeview Sibley Medical CenterHC (RBC) [Mass/Vol]33.3 g/dL30.5 - 36.0 g/dLWilson Street HospitalV (RBC) [Entitic vol]91.5 fL80.0 - 100.0 fLCSumma Health Wadsworth - Rittman Medical CenterMonocytes (Bld) [#/Vol]0.79 10*3/uLNINFBethesda North HospitalMonocytes/100 WBC (Bld)5.6 %[facility] Neutrophils (Bld) [#/Vol]10.59 10*3/uLHighBethesda North HospitalNeutrophils/100 WBC (Bld)75.7 %[facility] HospitalNucleated RBC (Bld) [#/Vol]NINFClevelSt. Elizabeth Hospital Nucleated RBC/100 WBC (Bld) [Ratio]0.0 %/100 WBCBethesda North HospitalPlatelet mean volume (Bld) [Entitic vol]9.9 fL9.0 - 12.7 fLCSumma Health Wadsworth - Rittman Medical CenterPlatelets (Bld) [#/Vol]327 10*3/uLBethesda North HospitalRBC (Bld) [#/Vol]4.26 10*6/uL3.90 - 5.20 m/uL [facility] HospitalWBC (Bld) [#/Vol]14.00 10*3/uLHighTriHealth Bethesda North HospitalBasophils (Bld) [#/Vol]0.10 10*3/uLNormal<0.11CMary Rutan Hospital Comment on above:Order Comment: Specimen Type: BLOOD SPECIMENOrdering Facility: [facility] Address:[address] [place] [address] Performed By: #### 25709-9 ####[facility] LABCLIA [id number] [place], [place] [address]Cadiizyxl/100 WBC (Bld)0.7 % [facility] on above:Order Comment: Specimen Type: BLOOD SPECIMENOrdering Facility: [facility] Address:[address] [place], [place] [address]Performed By: #### 26631-0 ####[facility] LABCLIA [id number] [place] [address] Differential cell count method Nom (Bld)AutoNormalCMary Rutan Hospital Comment on above:Order Comment: Specimen Type: BLOOD SPECIMENOrdering Facility: [facility] Address:[address] [place] [address] Performed By: #### 97102-1 ####[facility] LABCLIA [id number] [place], [place] [address]Gwnuzllkzqm (Bld) [#/Vol]0.15 10*3/uLNormal<0.46[facility] on above:Order Comment: Specimen Type: BLOOD SPECIMENOrdering Facility: [facility] Address:[address] [place], [place] [address]Performed By: #### 41212-5 ####[facility] LABCLIA [id number] [place], [place] [address]Bhweunquvfk/100 WBC (Bld)1.1 %[facility] on above:Order Comment: Specimen Type: BLOOD SPECIMENOrdering Facility: [facility] Address:[address] [place], [place] [address]Performed By: #### 85755-5 ####[facility] LABIA [id number] [place], [place] [address]Zgjsyydggsv distribution width (RBC) [Ratio]14.2 %Fwnjvk17.5-15.0[facility] on above: Order Comment: Specimen Type: BLOOD SPECIMENOrdering Facility: [facility] Address:[address] [place], [place] [address]Performed By: #### 28389- 8 ####[facility] LABIA [id number] [place], [place] [address]Zxqqiejuea (Bld) [Volume fraction]39.0 %Epozel96.0-46.0 [facility] on above:Order Comment: Specimen Type: BLOOD SPECIMENOrdering Facility: [facility] Address:[address] [place], [place] [address]Performed By: #### 07066-8 ####[facility]IIADAPHNE [facility] LABIA [id number] [place], [place] [address]Pcztctscuu (Bld) [Mass/Vol]13.0 g/gFFhdlzt73.5-15.5CChillicothe Hospital on above: Order Comment: Specimen Type: BLOOD SPECIMENOrdering Facility: [facility] Address:[address] [place], [place] [address]Performed By: #### 90507- 8 ####[facility] LABIA [id number] [place], [place] [address]Vsebyzph granulocytes (Bld) [#/Vol]0.21 10*3/uLHigh<0.10 [facility] on above:Order Comment: Specimen Type: BLOOD SPECIMENOrdering Facility: [facility] Address:[address] [place], [place] [address]Performed By: #### 51506-8 ####[facility] LABCLIA [id number] [place], [place] [address]Rdatgnga granulocytes/100 WBC (Bld)1.5 %NormalOhio State University [facility] Medical [facility] on above: Order Comment: Specimen Type: BLOOD SPECIMENOrdering Facility: [facility] Address:[address] [place], [place] [address]Performed By: #### 87076- 8 ####[facility] LABCLIA [id number] [place], [place] [address]Zixxlwmqauo (Bld) [#/Vol]2.16 10*3/uLNormal1.00-4.00 [facility] on above:Order Comment: Specimen Type: BLOOD SPECIMENOrdering Facility: [facility] Address:[address] [place], [place] [address]Performed By: #### 07453-6 ####[facility] LABIA [id number] [place], [place] [address]Ikbnguztyqr/100 WBC (Bld)15.4 %NormalOhio State University [facility] Medical [facility] on above:Order Comment: Specimen Type: BLOOD SPECIMENOrdering Facility: [facility] Address:[address] [place], [place] [address]Performed By: #### 43927-7 ####[facility] LABCLIA [id number] [place], [place] [address]TNM (RBC) [Entitic mass]30.5 kjXaufiu86.0-34.0[facility] on above:Order Comment: Specimen Type: BLOOD SPECIMENOrdering Facility: [facility] Address:[address] [place], [place] [address]Performed By: #### 22742-2 ####[facility] LABIA [id number] [place], [place] [address]XWKA (RBC) [Mass/Vol]33.3 g/mWWxktts43.5-36.0[facility] on above: Order Comment: Specimen Type: BLOOD SPECIMENOrdering Facility: [facility] Address:[address] [place], [place] [address]Performed By: #### 87310- 8 ####[facility] LABCLIA [id number] [place], [place] [address]CUC (RBC) [Entitic vol]91.5 qJDjdzqv84.0-100.0[facility] on above:Order Comment: Specimen Type: BLOOD SPECIMENOrdering Facility: [facility] Address:[address] [place], [place] [address]Performed By: #### 53214-9 ####[facility] LABCLIA [id number] [place], [place] [address]Ztupizujh (Bld) [#/Vol]0.79 10*3/uLNormal<0.87[facility] on above:Order Comment: Specimen Type: BLOOD SPECIMENOrdering Facility: [facility] Address:[address] [place], [place] [address]Performed By: #### 84470- 8 ####[facility] LABCLIA [id number] [place], [place] [address]Hqbiyrfrj/100 WBC (Bld)5.6 %NormalOhio State University [facility] Medical [facility] on above:Order Comment: Specimen Type: BLOOD SPECIMENOrdering Facility: [facility] Address:[address] [place], [place] [address]Performed By: #### 05481-7 ####[facility] LABCLIA [id number] [place], [place] [address]Vshzuepwjft (Bld) [#/Vol]10.59 10*3/uLHigh1.45-7.50[facility] on above:Order Comment: Specimen Type: BLOOD SPECIMENOrdering Facility: [facility] Address:[address] [place], [place] [address]Performed By: #### 78264-8 ####[facility] LABCLIA [id number] [place], [place] [address]Chdpnbkxrsq/100 WBC (Bld)75.7 %NormalOhio State University [facility] Medical [facility] on above:Order Comment: Specimen Type: BLOOD SPECIMENOrdering Facility: [facility] Address:[address] [place], [place] [address]Performed By: #### 19731-6 ####[facility] LABCLIA [id number] [place], [place] [address]Adprsbklp RBC (Bld) [#/Vol] 10*3/uLNormal<0.01[facility] on above:Order Comment: Specimen Type: BLOOD SPECIMENOrdering Facility: [facility] Address:[address] [place], [place] [address]Performed By: #### 16029-0 ####[facility] LABCLIA [id number] [place], [place] [address]Cwjonyxil RBC/100 WBC (Bld) [Ratio]0.0 /100 WBCNormal [facility] on above:Order Comment: Specimen Type: BLOOD SPECIMENOrdering Facility: [facility] Address:[address] [place], [place] [address]Performed By: #### 76775-4 ####[facility] LABCLIA [id number] [place], [place] [address]Ifackkcs mean volume (Bld) [Entitic vol]9.9 fLNormal9.0-12.7CChillicothe Hospital on above:Order Comment: Specimen Type: BLOOD SPECIMENOrdering Facility: [facility] Address:[address] [place] [address] Performed By: #### 33865-7 ####[facility] LABIA [id number] [place], [place] [address]Rnrriaeen (Bld) [#/Vol]327 10*3/tNFjtwrb938-972SwpulsrbxOhio State University [facility] on above:Order Comment: Specimen Type: BLOOD SPECIMENOrdering Facility: [facility] Address:[address] [place] [address]Ajjtouhay By: #### 59840-9 ####[facility]ADAPHNE [facility] LABCLIA [id number] [place], [place] [address]SBU (Bld) [#/Vol]4.26 10*6/uLNormal3.90-5.20[facility] on above:Order Comment: Specimen Type: BLOOD SPECIMENOrdering Facility: [facility] Address:[address] [place] [address]Ryofojcrg By: #### 80986-3 ####[facility] LABCLIA [id number] [place], [place] [address]CKB (Bld) [#/Vol]14.00 10*3/uLHigh3.70-11.00[facility] on above: Order Comment: Specimen Type: BLOOD SPECIMENOrdering Facility: [facility] Address:[address] [place] [address]Zlhtihgue By: #### 38902- 8 ####[facility]ICAL CENTERDAPHNE [facility] LABCLIA [id number] [place], [place] [address]ZNPKGLzt 31-06-9190RBFSZPNaypczPqyiqfiat [facility] metabolic 2000 panelOrdered By: Josse Merlos on 78-20-2772Vjvpnjv [Mass/Vol]3.9 g/dL3.9 - 4.9 g/dLTipton ClinicALP [Catalytic activity/Vol]73 U/L34 - 123 U/LCleveland ClinicALT [Catalytic activity/Vol]24 U/L7 - 38 U/L [facility]on ClinicAnion gap [Moles/Vol]15 mmol/L8 - 15 mmol/LCleveland ClinicAST [Catalytic activity/Vol]12 U/LLow13 - 35 U/LCleveland ClinicBilirubin [Mass/Vol] mg/dLLow0.2 - 1.3 mg/dLCleaultman hospital ClinicCalcium [Mass/Vol]9.2 mg/dL8.5 - 10.2 mg/dLTipton ClinicChloride [Moles/Vol]104 mmol/L98 - 107 mmol/LCleveland ClinicCO2 [Moles/Vol]19 mmol/LLow22 - 30 mmol/LCleveland ClinicCreatinine [Mass/Vol]0.58 mg/dL0.58 - 0.96 mg/dLBethesda North HospitalGFR/1.73 sq M.predicted among non-blacks MDRD (S/P/Bld) [Vol rate/Area]115 mL/min/{1.73_m2}- PINF [facility] North HospitalComment on above:Estimated Glomerular Filtration Rate (eGFR) is calculated using the 2020 CKD-EPI creatinine equation. This equation utilizes serum creatinine, sex, and age as parameters. The creatinine assay has traceable calibration to isotope dilution-mass spectrometry. Refer to KDIGO guidelines for clinical interpretation. In patients with unstable renal function, e.g. those with acute kidney injury, the eGFRmay not accurately reflect actual GFR.Glucose [Mass/Vol]163 mg/nXOrdk88 - 99 mg/dLBethesda North HospitalComment on above:The [place] [employer] (ADA) provides guidance for cutoff [...] Standards of Medical Care in Diabetes 2016, [place] [employer]. Diabetes Care. 2016.39(Suppl 1). Interpretation and review of laboratory resultsAbnormalCleveland ClinicPotassium [Moles/Vol]3.9 mmol/L3.7 - 5.1 mmol/LCleveland ClinicProtein [Mass/Vol]6.8 g/dL 6.3 - 8.0 g/dLTipton ClinicSodium [Moles/Vol]138 mmol/L136 - 144 mmol/L [facility] HospitalUrea nitrogen [Mass/Vol]13 mg/dL7 - 21 mg/dLMercy Health St. Vincent Medical CenterComprehensive metabolic 2000 panelon [id number] [Mass/Vol]3.9 g/dLNormal3.9-4.9CChillicothe Hospital on above:Order Comment: Specimen Type: BLOOD SPECIMENOrdering Facility: [facility] Address:[address] [place], [place] [address]Performed By: #### [id number] ####[facility] LABCLIA [id number] [place], [place] [address]AIZ [Catalytic activity/Vol]73 [id number] State University [facility] on above:Order Comment: Specimen Type: BLOOD SPECIMENOrdering Facility: [facility] Address:[address] [place], [place] [address]Performed By: #### 86007-3 ####[facility] LABCLIA [id number] [place], [place] [address]DZA [Catalytic activity/Vol]24 U/LNormal7-38[facility] on above:Order Comment: Specimen Type: BLOOD SPECIMENOrdering Facility: [facility] Address:[address] [place], [place] [address]Performed By: #### 84773- 8 ####[facility] LABCLIA [id number] [place], [place] [address]Udjoh gap [Moles/Vol]15 mmol/LNormal8-15[facility] on above:Order Comment: Specimen Type: BLOOD SPECIMENOrdering Facility: [facility] Address:[address] [place], [place] [address]Performed By: #### 37704-2 ####[facility] LABCLIA [id number] [place], [place] [address]PFZ [Catalytic activity/Vol]12 U/MHut55-51FoysshdypOhio State University [facility] on above:Order Comment: Specimen Type: BLOOD SPECIMENOrdering Facility: [facility] Address:[address] [place], [place] [address]Performed By: #### 48335-9 ####[facility] LABCLIA [id number] [place] [address] Bilirubin [Mass/Vol]mg/dLLow0.2-1.3CChillicothe Hospital on above: Order Comment: Specimen Type: BLOOD SPECIMENOrdering Facility: [facility] Address:[address] [place], [place] [address]Performed By: #### 41118- 8 ####[facility] LABCLIA [id number] [place], [place] [address]Zlmemps [Mass/Vol]9.2 mg/dLNormal8.5-10.2CChillicothe Hospital on above:Order Comment: Specimen Type: BLOOD SPECIMENOrdering Facility: [facility] Address:[address] [place], [place] [address]Performed By: #### 24133-5 ####[facility] LABCLIA [id number] [place], [place] [address]Flokhffg [Moles/Vol]104 mmol/L Lmxbsl74-663FurbgukvjOhio State University [facility] on above:Order Comment: Specimen Type: BLOOD SPECIMENOrdering Facility: [facility] Address:[address] [place], [place] [address]Performed By: #### 82194-2 ####[facility] LABCLIA [id number] [place] [address] CO2 [Moles/Vol]19 mmol/LLus19-81EhtwzrgoxOhio [facility] University [facility] on above:Order Comment: Specimen Type: BLOOD SPECIMENOrdering Facility: [facility] Address:[address] [place], [place] [address]Performed By: #### 79169- 8 ####[facility] LABIA [id number] [place], [place] [address]Pvfbnrwvdb [Mass/Vol]0.58 mg/dLNormal0.58-0.96[facility] on above:Order Comment: Specimen Type: BLOOD SPECIMENOrdering Facility: [facility] Address:[address] [address]Hqxhwpzeh By: #### 38672-6 ####[facility] LABCLIA [id number] [place], [place] [address]Lyihhivqnt and Glomerular filtration rate.predicted panel (S/P/Bld)115 mL/min/1.73m???Normal >=60[facility] on above:Order Comment: Specimen Type: BLOOD SPECIMENOrdering Facility: [facility] Address:[address] [place], [place] [address]Result Comment: Estimated Glomerular Filtration Rate (eGFR) is calculated using the 2020 CKD-EPI creatinine equation. This equation utilizes serum creatinine, sex, and age as parameters. The creatinine assay has traceable calibration to isotope dilution-mass spectrometry. Refer to KDIGO guidelines for clinical interpretation. In patients with unstable renal function, e.g. those with acute kidney injury, the eGFR may not accurately reflect actual GFR.Performed By: #### 37671-3 ####[facility] LABCLIA [id number] [place], [place] [address]Zjdpalo [Mass/Vol]163 mg/eELpeu18-77CcnpadcyfOhio State University [facility] on above:Order Comment: Specimen Type: BLOOD SPECIMENOrdering Facility: [facility] Address:[address] [place] [address]Tnrvfd Comment: The [place] Diabetes Association (ADA) provides guidance for cutoff values for fast ing glucose and random glucose. The ADA defines fasting as no caloric intake for at least 8 hours. Fasting plasma glucose results between 100 to 125 mg/dL indicate increased risk for diabetes (prediabetes).Fasting plasma glucose results greater than or equal to 126 mg/dL meet the criteria for diagnosis of diabetes. In the absence of unequivocal hyperglycemia, results should be confirmed by repeattesting. In a patient with classic symptoms of hyperglycemia or hyperglycemic crisis, random plasmaglucose results greater than or equal to 200 mg/dL meet the criteria for diagnosis of diabetes.Reference: Standards of Medical Care in Diabetes 2016, [place] Diabetes Association. Diabetes Care. 2016.39(Suppl 1).Performed By: #### 00392-2 ####[facility] LABCLIA [id number] [place], [place] [address]Hphhqzmtt [Moles/Vol]3.9 mmol/LNormal3.7-5.1CChillicothe Hospital on above: Order Comment: Specimen Type: BLOOD SPECIMENOrdering Facility: [facility] Address:[address] [place], [place] [address]Performed By: #### 75187- 8 ####[facility] LABCLIA [id number] [place], [place] [address]Iwpqwqq [Mass/Vol]6.8 g/dLNormal6.3-8.0[facility] on above:Order Comment: Specimen Type: BLOOD SPECIMENOrdering Facility: [facility] Address:[address] [place], [place] [address]Performed By: #### 41781-8 ####[facility] LABIA [id number] [place], [place] [address]Namrju [Moles/Vol]138 mmol/L Mtwmle131-871TevwwetyuOhio State University [facility] on above:Order Comment: Specimen Type: BLOOD SPECIMENOrdering Facility: [facility] Address:[address] [place], [place] [address]Performed By: #### 52386-9 ####[facility] LABIA [id number] [place] [address] Urea nitrogen [Mass/Vol]13 mg/dLNormal7-21[facility] on above:Order Comment: Specimen Type: BLOOD SPECIMENOrdering Facility: [facility] Address:[address] [place], [place] [address]Performed By: #### 24776-9 ####[facility] LABIA [id number] [place], [place] [address]UQY Westergren method (Bld) [Velocity]on 06-13-2024 ESR (Bld) [Velocity]30 mm/hHighBethesda North HospitalInterpretation and review of laboratory resultsAbnoalCleveland Cleveland Clinic Children's Hospital for RehabilitationESR (Bld) [Velocity]30 mm/hHigh0-20[facility] on above:Order Comment: Specimen Type: BLOOD SPECIMENOrdering Facility: [facility] Address:[address] [place], [place] [address]Performed By: #### 4537-7 ####[facility] LABCLIA [id number] [place] [address] [place] OF AMERICAFERRITINon 65-62-6723Qwxfjqqe [Mass/Vol]30.9 ng/mL14.7 - 205.1 ng/mLCleveland ClinicFOLATE, SERUMon 44-13-2515Guurzl [Mass/Vol]19.6 ng/mL4.7 - PINF ng/mLCleveland ClinicFerritin SerPl-mCncon 12-10-0433Voeplepl [Mass/Vol]30.9 ng/xZXkesut29.7-205.1ClevelMercy Health St. Charles Hospital on above: Order Comment: Specimen Type: BLOOD SPECIMENOrdering Facility: [facility] Address:[address] [place], [place] [address]Performed By: #### 2284- 8, 2276-4, 98757-9, 2132-01 ####[facility] LABCLIA [id number] [place] [address] [place] AMERICAFerritin [Mass/Vol]on 20-63-1267Vohqqvnjoivoaj and review of laboratory resultsNormal [facility] Bethesda North HospitalFolate SerPl-mCncon 37-15-5563Dytfej [Mass/Vol] 19.6 ng/mLNormal>4.7ClevelMercy Health St[address] Charles Hospital on above:Order Comment: Specimen Type: BLOOD SPECIMENOrdering Facility: [facility] Address:[address] [place], [place] [address]Performed By: #### 2284-8, 2276-4, 81321-5, 2132-01 ####[facility] LABCLIA [id number] [place] [address] [place] IMMUNOGLOBULINS,IGG,IGA,IGMon 87-56-3349SiB [Mass/Vol]170 mg/lFKqiedq41-010 [facility] on above:Order Comment: Specimen Type: BLOOD SPECIMENOrdering Facility: [facility] Address:[address] [place], [place] [address]Performed By: #### SERIMM ####[facility] LABCLIA [id number] [address] [address] [place] OF AMERICAIgG [Mass/Vol]663 mg/wQWjm666-5950HzrnbeteyOhio [facility] on above:Order Comment: Specimen Type: BLOOD SPECIMENOrdering Facility: [facility] Address:[address] [place], [place] [address]Performed By: #### SERIMM ####[facility] LABCLIA [id number] [address] [address] [place] AMERICAIgM [Mass/Vol]376 mg/dL Jrem09-927UaqsyzrffOhio [facility] on above:Order Comment: Specimen Type: BLOOD SPECIMENOrdering Facility: [facility] Address:[address] [place], [place] [address]Performed By: #### SERIMM ####[facility] LABCLIA [id number] [address] [address] [place] OF AMERICAIron and Iron binding capacity panelon 95-45-6228Qhau [Mass/Vol]64 ug/mOGllywe09-217YsdjkpaacOhio [facility] University [facility] on above:Order Comment: Specimen Type: BLOOD SPECIMENOrdering Facility: [facility] Address:[address] [place], [place] [address]Performed By: #### 2284- 8, 2276-4, 05138-2, 2132-9 ####[facility] LABCLIA [id number] [facility] [place] [address] [place] AMERICAIron binding capacity [Mass/Vol]409 ug/uKBeoj828-147LgjongajbOhio State University [facility] on above:Order Comment: Specimen Type: BLOOD SPECIMENOrdering Facility: [facility] Address:[address] [place], [place] [address] Performed By: #### 2284-8, 2276-4, 37845-2, 2132-01 ####[facility] LABCLIA [id number] [place] [address] [place] AMERICAIron/TIBC [Molar ratio]15.6 %Hwsqof42.0-57.0[facility] on above:Order Comment: Specimen Type: BLOOD SPECIMENOrdering Facility: [facility] Address:[address] [place], [place] [address]Performed By: #### 2284-8, 6-4, 77088-5, 2132-01 ####[facility] LABCLIA [id number] [place] [address] [place] AMERICALaboratory - Chemistry and Chemistry - challengeon 08-19-8987EdN [Mass/Vol]170 mg/dL70 - 400 mg/dLBethesda North HospitalIgG [Mass/Vol]663 mg/bMMkd364 - 1600 mg/dLTipton ClinicIgM [Mass/Vol]376 mg/bXRosa16 - 230 mg/dLBethesda North HospitalNo Panel Informationon 99-44-2291Uxatatewhxyipq and review of laboratory resultsNormalCleveland Cleveland Clinic Children[facility] Hospital for RehabilitationInterpretation and review of laboratory resultsAbnormalCleveland Cleveland Clinic Children's Hospital for RehabilitationVITAMIN B12 on 93-17-8960Rhraoprpb (Vitamin B12) [Mass/Vol]516 pg/mL232 - 1245 pg/mL Bethesda North HospitalVit B12 SerPl-ncon 89-07-9987Mofjqbwjk (Vitamin B12) [Mass/Vol]516 pg/eRDknqwy369-9944FdhsjetuiChillicothe Hospital on above: Order Comment: Specimen Type: BLOOD SPECIMENOrdering Facility: [facility] Address:[address] [place], [place] [address]Performed By: #### 2284- 8, 2276-4, 28674-5, 2132-01 ####[facility] LABCLIA [id number] [address] [place] AMERICACNPNon 28-06-0834SAJOHpkdtmKfatlhuav Clinic ClevelandIGP,APTIMA HPV,AGE GDLNon 07-28-2833TGU GDLN ACOG TESTINGNote.NOMS HealthcareComment on above:TESTS RESULT FLAG UNITS REF RANGE LAB Clinician Provided Cytology Information Source.............Cervix;Endocervix No. of containers..01 ThinPrep Vial Age Algo ACJOSE Vicky... FLAG LEGEND: L-Low Normal,H-High Normal,LL-Alert Low,HH-Alert High <-Panic Low,>-Panic High,A-Abnormal,AA-Critical Abnormal Performed at: 01 =[address] [address] Aparna Solorzano MD, HPV APTIMANegativeNegativeNOMS HealthcareComment on above:This nucleic acid amplification test detects fourteen high- risk HPV types (16,18,31,33,35,39,45,51,52,56,58,59,66,68) without differentiation. Performed at: =[address] [id number] Front Office Help: Aparna Solorzano MD, Phone: [phone] Performed at: [address] [id number] Front Office Help: Aparna Solorzano MD, Phone: [phone] IGP, APTIMA HPV, RFX 16/18,45Note.NOMS HealthcareComment on above:TESTS RESULT FLAG UNITS REF RANGE LAB DIAGNOSIS: 02 NEGATIVE FOR INTRAEPITHELIAL LESION OR MALIGNANCY. Specimen adequacy: 02 Satisfactory for evaluation. Endocervical and/or squamous metaplastic cells (endocervical component) are present. Performed by: 02 Kenzie Kam, In House Counsel ([facility]) . 02 Note: Note 02 [...] High,A-Abnormal,AA-Critical Abnormal Performed at: 02 [address] [facility] [address] [place] [address] Aparna Solorzano MD, BRUSH-SPATULA CERVIX ENDOCERVIX CLINISYNCNOMS [facility] W Auto Differential panel (Bld)on 05-19-2024 Basophils (Bld) [#/Vol]0.08 10*3/uLNINFBethesda North HospitalBasophils/100 WBC (Bld) 0.6 %[facility]hesda North HospitalDifferential cell count method Nom (Bld)AutoCleveland ClinicEosinophils (Bld) [#/Vol]0.17 10*3/uLNINFBethesda North HospitalEosinophils/100 WBC (Bld)1.2 %[facility]hesda North HospitalErythrocyte distribution width (RBC) [Ratio]14.3 % 11.5 - 15.0 %[facility] North HospitalHematocrit (Bld) [Volume fraction]39.8 %36.0 - 46.0 %[facility] North HospitalHemoglobin (Bld) [Mass/Vol]13.4 g/dL11.5 - 15.5 g/dLBethesda North HospitalImmature granulocytes (Bld) [#/Vol]0.13 10*3/uLHighNIFulton County Health Center Immature granulocytes/100 WBC (Bld)0.9 %[facility] North HospitalInterpretation and review of laboratory resultsAbnormalCleveland ClinicLymphocytes (Bld) [#/Vol] 2.96 10*3/uLBethesda North HospitalLymphocytes/100 WBC (Bld)20.5 %[facility] HospitalH (RBC) [Entitic mass]31.1 pg26.0 - 34.0 pgClevelRidgeview Sibley Medical CenterHC (RBC) [Mass/Vol] 33.7 g/dL30.5 - 36.0 g/dLWilson Street HospitalV (RBC) [Entitic vol]92.3 fL80.0 - 100.0 fLCleveland M Health Fairview Ridges HospitalMonocytes (Bld) [#/Vol]0.87 10*3/uLHighNIFulton County Health CenterMonocytes/100 WBC (Bld)6.0 %[facility] North HospitalNeutrophils (Bld) [#/Vol]10.20 10*3/uLHighBethesda North HospitalNeutrophils/100 WBC (Bld)70.8 %[facility] Nucleated RBC (Bld) [#/Vol]NINFCleveland ClinicNucleated RBC/100 WBC (Bld) [Ratio]0.0 %/100 WBCCleveland ClinicPlatelet mean volume (Bld) [Entitic vol]10.1 fL9.0 - 12.7 fLCSumma Health Wadsworth - Rittman Medical CenterPlatelets (Bld) [#/Vol]303 10*3/uLTipton ClinicRBC (Bld) [#/Vol]4.31 10*6/uL3.90 - 5.20 m/[facility] Hospital - TrumbullWBC (Bld) [#/Vol]14.41 10*3/uLHighDiley Ridge Medical Center ClinicBasophils (Bld) [#/Vol] 0.08 10*3/uLNormal<0.11CChillicothe Hospital on above:Order Comment: Specimen Type: BLOOD SPECIMENOrdering Facility: [facility] Address:[address] [place], [place] [address]Performed By: #### 93611-5 ####[facility] LABCLIA [id number] [place], [place] [address]Jbxgzpwab/100 WBC (Bld)0.6 %NormalOhio State University [facility] on above:Order Comment: Specimen Type: BLOOD SPECIMENOrdering Facility: [facility] Address:[address] [place], [place] [address]Performed By: #### 14660-7 ####[facility] LABCLIA [id number] [place], [place] [address]Pclhfewqbynm cell count method Nom (Bld)AutoNormalCChillicothe Hospital on above:Order Comment: Specimen Type: BLOOD SPECIMENOrdering Facility: [facility] Address:[address] [place], [place] [address]Performed By: #### 72100-3 ####[facility] LABCLIA [id number] [place], [place] [address]Lfdjqonhgwl (Bld) [#/Vol]0.17 10*3/uLNormal<0.46[facility] on above:Order Comment: Specimen Type: BLOOD SPECIMENOrdering Facility: [facility] Address:[address] [place], [place] [address]Performed By: #### 44763-6 ####[facility] LABIA [id number] [place], [place] [address]Gyiuylqvsck/100 WBC (Bld)1.2 %NormalOhio State University [facility] on above:Order Comment: Specimen Type: BLOOD SPECIMENOrdering Facility: [facility] Address:[address] [place], [place] [address]Performed By: #### 13911-7 ####[facility] LABIA [id number] [place], [place] [address]Zbeilvapadl distribution width (RBC) [Ratio]14.3 %Normal 11.5-15.0[facility] on above:Order Comment: Specimen Type: BLOOD SPECIMENOrdering Facility: [facility] Address:[address] [place], [place] [address]Performed By: #### 72152-7 ####[facility] HOSPITALIA [id number] [place] [address] Hematocrit (Bld) [Volume fraction]39.8 %Molegf96.0-46.0[facility] on above:Order Comment: Specimen Type: BLOOD SPECIMENOrdering Facility: [facility] Address:[address] [place], [place] [address]Performed By: #### 50758-7 ####[facility] LABIA [id number] [place], [place] [address]Ungvsurens (Bld) [Mass/Vol]13.4 g/bFOpullt03.5-15.5CChillicothe Hospital on above:Order Comment: Specimen Type: BLOOD SPECIMENOrdering Facility: [facility] Address:[address] [place], [place] [address]Performed By: #### 10128-3 ####[facility] LABIA [id number] [place], [place] [address]Dcwdlovq granulocytes (Bld) [#/Vol]0.13 10*3/uLHigh<0.10 [facility] on above:Order Comment: Specimen Type: BLOOD SPECIMENOrdering Facility: [facility] Address:[address] [place], [place] [address]Performed By: #### 47421-4 ####[facility] LABCLIA [id number] [place], [place] [address]Qzdqalbn granulocytes/100 WBC (Bld)0.9 %[facility] on above: Order Comment: Specimen Type: BLOOD SPECIMENOrdering Facility: [facility] Address:[address] [place], [place] [address]Performed By: #### 78174- 8 ####[facility] LABCLIA [id number] [place], [place] [address]Ggkhkkvewsz (Bld) [#/Vol]2.96 10*3/uLNormal1.00-4.00 [facility] on above:Order Comment: Specimen Type: BLOOD SPECIMENOrdering Facility: [facility] Address:[address] [place], [place] [address]Performed By: #### 84982-8 ####[facility] LABIA [id number] [place], [place] [address]Umqsgoszgns/100 WBC (Bld)20.5 %NormalOhio State University [facility] on above:Order Comment: Specimen Type: BLOOD SPECIMENOrdering Facility: [facility] Address:[address] [place], [place] [address]Performed By: #### 62663-2 ####[facility] LABCLIA [id number] [place], [place] [address]LES (RBC) [Entitic mass]31.1 ttNdteek50.0-34.0[facility] on above:Order Comment: Specimen Type: BLOOD SPECIMENOrdering Facility: [facility] Address:[address] [place], [place] [address]Performed By: #### 60716-1 ####[facility] LABCLIA [id number] [place], [place] [address]IMIS (RBC) [Mass/Vol]33.7 g/qIGcldie67.5-36.0[facility] on above: Order Comment: Specimen Type: BLOOD SPECIMENOrdering Facility: [facility] Address:[address] [place], [place] [address]Performed By: #### 85158- 8 ####[facility] LABCLIA [id number] [place], [place] [address]HSR (RBC) [Entitic vol]92.3 sBUwcgcz78.0-100.0[facility] on above:Order Comment: Specimen Type: BLOOD SPECIMENOrdering Facility: [facility] Address:[address] [place], [place] [address]Performed By: #### 82631-3 ####[facility] LABIA [id number] [place], [place] [address]Gkhbflwyc (Bld) [#/Vol]0.87 10*3/uLHigh<0.87[facility] on above:Order Comment: Specimen Type: BLOOD SPECIMENOrdering Facility: [facility] Address:[address] [place], [place] [address]Performed By: #### 32747- 8 ####[facility] LABCLIA [id number] [place], [place] [address]Lwqiztfoa/100 WBC (Bld)6.0 %NormalOhio State University [facility] on above:Order Comment: Specimen Type: BLOOD SPECIMENOrdering Facility: [facility] Address:[address] [place], [place] [address]Performed By: #### 32504-9 ####[facility] LABIA [id number] [place], [place] [address]Gebaaxppmvl (Bld) [#/Vol]10.20 10*3/uLHigh1.45-7.50[facility] on above:Order Comment: Specimen Type: BLOOD SPECIMENOrdering Facility: [facility] Address:[address] [place], [place] [address]Performed By: #### 87112-9 ####[facility] LABCLIA [id number] [place], [place] [address]Qgsjtrirfxx/100 WBC (Bld)70.8 %NormalOhio State University [facility] on above:Order Comment: Specimen Type: BLOOD SPECIMENOrdering Facility: [facility] Address:[address] [place], [place] [address]Performed By: #### 53214-7 ####[facility] LABCLIA [id number] [place], [place] [address]Xijjhhsyz RBC (Bld) [#/Vol] 10*3/uLNormal<0.01[facility] on above:Order Comment: Specimen Type: BLOOD SPECIMENOrdering Facility: [facility] Address:[address] [place], [place] [address]Performed By: #### 17461-1 ####[facility] LABCLIA [id number] [place], [place] [address]Wnabrviay RBC/100 WBC (Bld) [Ratio]0.0 /100 WBCNormal [facility] on above:Order Comment: Specimen Type: BLOOD SPECIMENOrdering Facility: [facility] Address:[address] [place], [place] [address]Performed By: #### 02461-4 ####[facility] LABCLIA [id number] [place], [place] [address]Gnmarqym mean volume (Bld) [Entitic vol]10.1 fLNormal9.0-12.7CChillicothe Hospital on above:Order Comment: Specimen Type: BLOOD SPECIMENOrdering Facility: [facility] Address:[address] [place] [address] Performed By: #### 97299-5 ####[facility] LABCLIA [id number] [place], [place] [address]Hsosswvgb (Bld) [#/Vol]303 10*3/qBZrmhpv345-152YqaxttqemOhio State University [facility] on above:Order Comment: Specimen Type: BLOOD SPECIMENOrdering Facility: [facility] Address:[address] [place], [place] [address]Performed By: #### 06318-6 ####[facility] LABCLIA [id number] [place], [place] [address]YJZ (Bld) [#/Vol]4.31 10*6/uLNormal3.90-5.20[facility] on above:Order Comment: Specimen Type: BLOOD SPECIMENOrdering Facility: [facility] Address:[address] [place], [place] [address]Performed By: #### 96237-9 ####[facility] LABIA [id number] [place], [place] [address]ITW (Bld) [#/Vol]14.41 10*3/uLHigh3.70-11.00[facility] on above: Order Comment: Specimen Type: BLOOD SPECIMENOrdering Facility: [facility] Address:[address] [place], [place] [address]Performed By: #### 66223- 8 ####[facility] LABIA [id number] [place], [place] [address]Pdymzllvuhrqj metabolic 2000 panelon [id number] [Mass/Vol]4.0 g/dL3.9 - 4.9 g/dLMercy Health Clermont Hospitalveland ClinicALP [Catalytic activity/Vol]79 U/L34 - 123 U/LCleveland ClinicALT [Catalytic activity/Vol]25 U/L7 - 38 U/L [facility]endez ClinicAnion gap [Moles/Vol]14 mmol/L8 - 15 mmol/LCleveland ClinicAST [Catalytic activity/Vol]12 U/LLow13 - 35 U/LCleveland ClinicBilirubin [Mass/Vol] mg/dLLow0.2 - 1.3 mg/dLTipton ClinicCalcium [Mass/Vol]9.4 mg/dL8.5 - 10.2 mg/dLCleveland ClinicChloride [Moles/Vol]105 mmol/L98 - 107 mmol/LCleveland ClinicCO2 [Moles/Vol]21 mmol/LLow22 - 30 mmol/LCleveland ClinicCreatinine [Mass/Vol]0.49 mg/dLLow0.58 - 0.96 mg/dLCleaultman hospital ClinicGFR/1.73 sq M.predicted among non-blacks MDRD (S/P/Bld) [Vol rate/Area]120 mL/min/{1.73_m2}- PINF [facility]da North HospitalComment on above:Estimated Glomerular Filtration Rate (eGFR) is calculated using the 2020 CKD-EPI creatinine equation. This equation utilizes serum creatinine, sex, and age as parameters. The creatinine assay has traceable calibration to isotope dilution-mass spectrometry. Refer to KDIGO guidelines for clinical interpretation. In patients with unstable renal function, e.g. those with acute kidney injury, the eGFRmay not accurately reflect actual GFR.Glucose [Mass/Vol]155 mg/fZShhb82 - 99 mg/dLBethesda North HospitalComment on above:The [place] Diabetes Association (ADA) provides guidance for cutoff [...] Standards of Medical Care in Diabetes 2016, [place] Diabetes Association. Diabetes Care. 2016.39(Suppl 1). Interpretation and review of laboratory resultsAbnormalCleveland ClinicPotassium [Moles/Vol]3.8 mmol/L3.7 - 5.1 mmol/LCleveland ClinicProtein [Mass/Vol]6.6 g/dL 6.3 - 8.0 g/dLCleveland ClinicSodium [Moles/Vol]140 mmol/L136 - 144 mmol/L Melendez ClinicUrea nitrogen [Mass/Vol]12 mg/dL7 - 21 mg/dLOhiohealth Riverside Methodist Hospital ClinicAlbumin [Mass/Vol]4.0 g/dLNormal3.9-4.9CChillicothe Hospital on above:Order Comment: Specimen Type: BLOOD SPECIMENOrdering Facility: [facility] Address:[address] [place], [place] [address]Performed By: #### 10746-3 ####[facility] LABCLIA [id number] [place] [address] [place] ALP [Catalytic activity/Vol]79 U/NXfsinu04-039AfuyweiebOhio State University [facility] on above:Order Comment: Specimen Type: BLOOD SPECIMENOrdering Facility: [facility] Address:[address] [place] [address] Performed By: #### 84026-2 ####[facility] LABCLIA [id number] [place] [address] [place] ALT [Catalytic activity/Vol]25 U/LNormal7-38[facility] on above:Order Comment: Specimen Type: BLOOD SPECIMENOrdering Facility: [facility] Address:[address] [place], [place] [address]Performed By: #### 83737-2 ####[facility] LABCLIA [id number] [place] [address] [place] AMERICAAnion gap [Moles/Vol] 14 mmol/LNormal8-15[facility] on above:Order Comment: Specimen Type: BLOOD SPECIMENOrdering Facility: [facility] Address:[address] [place], [place] [address]Performed By: #### 65221-5 ####[facility] LABCLIA [id number] [place] [address] [place] AMERICAAST [Catalytic activity/Vol]12 U/MPqq52-99NefewrgedOhio State University [facility] on above:Order Comment: Specimen Type: BLOOD SPECIMENOrdering Facility: [facility] Address:[address] [place], [place] [address]Performed By: #### 35174-5 ####[facility] LABCLIA [id number] [place] [address] [place] AMERICABilirubin [Mass/Vol]mg/dLLow0.2-1.3CChillicothe Hospital on above:Order Comment: Specimen Type: BLOOD SPECIMENOrdering Facility: [facility] Address:[address] [place], [place] [address]Performed By: #### 70404-1 ####[facility] LABCLIA [id number] [place] [address] [place] Calcium [Mass/Vol]9.4 mg/dLNormal8.5-10.2CChillicothe Hospital on above:Order Comment: Specimen Type: BLOOD SPECIMENOrdering Facility: [facility] Address:[address] [place], [place] [address]Performed By: #### 42574-0 ####[facility] LABCLIA [id number] [place] [address] [place] AMERICAChloride [Moles/Vol] 105 mmol/MQhedsk89-360EfxaakmptOhio State University [facility] Medical [facility] on above:Order Comment: Specimen Type: BLOOD SPECIMENOrdering Facility: [facility] Address:[address] [place], [place] [address]Performed By: #### 65450-9 ####[facility] LABCLIA [id number] [place] [address] [place] AMERICACO2 [Moles/Vol]21 mmol/UEjg20-03 [facility] on above:Order Comment: Specimen Type: BLOOD SPECIMENOrdering Facility: [facility] Address:[address] [place], [place] [address]Performed By: #### 27971-4 ####[facility] LABCLIA [id number] [place] [address] [place] AMERICACreatinine [Mass/Vol]0.49 mg/dLLow0.58-0.96[facility] Comment on above:Order Comment: Specimen Type: BLOOD SPECIMENOrdering Facility: [facility] Address:[address] [place] [address] Performed By: #### 45344-0 ####[facility] LABCLIA [id number] [place] [address] [place] Creatinine and Glomerular filtration rate.predicted panel (S/P/Bld)120 mL/min/1.73m???Normal>=60[facility] Edwin Shawment on above:Order Comment: Specimen Type: BLOOD SPECIMENOrdering Facility: [facility] Address:[address] [place], [place] [address]Result Comment: Estimated Glomerular Filtration Rate (eGFR) is calculated using the 2020 CKD-EPI cre atinine equation. This equation utilizes serum creatinine, sex, and age as parameters. The creatinine assay has traceable calibration to isotope dilution- mass spectrometry. Refer to KDIGO guidelines for clinical interpretation. In patients with unstable renal function, e.g. those with acute kidney injury, the eGFR may not accurately reflect actual GFR.Performed By: #### 94103-1 ####[facility] LABIA [id number] [place] [address] [place] AMERICAGlucose [Mass/Vol]155 mg/dLHigh 74-99[facility] Shawment on above:Order Comment: Specimen Type: BLOOD SPECIMENOrdering Facility: [facility] Address:[address] [place], [place] [address]Result Comment: The [place] Diabetes Association (ADA) provides guidance for cutoff [...] unequivocal hyperglycemia, results should be confirmed by repeattesting. In a patient with classic symptoms of hyperglycemia or hyperglycemic crisis, random plasmaglucose results greater than or equal to 200 mg/dL meet the criteria for diagnosis of diabetes.Reference: Standards of Medical Care in Diabetes 2016, [place] Diabetes Association. Diabetes Care. 2016.39(Suppl 1).Performed By: #### 46918-1 ####[facility] LABIA [id number] [place] [address] [place] AMERICAPotassium [Moles/Vol]3.8 mmol/L Normal3.7-5.1CChillicothe Hospital on above:Order Comment: Specimen Type: BLOOD SPECIMENOrdering Facility: [facility] Address:[address] [place], [place] [address]Performed By: #### 40374-4 ####[facility] LABIA [id number] [place] [address] [place] AMERICAProtein [Mass/Vol]6.6 g/dLNormal6.3-8.0[facility] on above:Order Comment: Specimen Type: BLOOD SPECIMENOrdering Facility: [facility] Address:[address] [place], [place] [address]Performed By: #### 83246-2 ####[facility] LABIA [id number] [place] [address] [place] Sodium [Moles/Vol]140 mmol/XFvavml339-068HqjjojxltOhio State University [facility] on above:Order Comment: Specimen Type: BLOOD SPECIMENOrdering Facility: [facility] Address:[address] [place], [place] [address]Performed By: #### 79928-0 ####[facility] LABIA [id number] [place] [address] [place] AMERICAUrea nitrogen [Mass/Vol]12 mg/dLNormal7-21[facility] on above:Order Comment: Specimen Type: BLOOD SPECIMENOrdering Facility: [facility] Address:[address] [place], [place] [address]Performed By: #### 19051- 8 ####[facility] LABIA [id number] [place] [address] [place] AMERICAESR Westergren method (Bld) [Velocity]on 89-18-8701MSZ (Bld) [Velocity]21 mm/[facility] Interpretation and review of laboratory resultsAbnormalCleveland [facility] for RehabilitationESR (Bld) [Velocity]21 mm/hHigh0-20[facility] on above:Order Comment: Specimen Type: BLOOD SPECIMENOrdering Facility: [facility] Address:[address] [place], [place] [address]Performed By: #### 4537-7 ####[facility] LABCLIA [id number] [place] [address] [place] AMERICAFERRITIN BLDon 89-41-3628Esqkncfs [Mass/Vol]20.6 ng/mL14.7 - 205.1 ng/mLCleveland ClinicFOLATE SERUMon 48-49-2103Nzwlgk [Mass/Vol]11.1 ng/mL4.7 - PINF ng/mLCleveland Clinic Ferritin SerPl-mCncon 18-13-1971Icifgghd [Mass/Vol]20.6 ng/tOOrhnrs37.7-205.1 [facility] on above:Order Comment: Specimen Type: BLOOD SPECIMENOrdering Facility: [facility] Address:[address] [place], [place] [address]Performed By: #### 87758-6, 6-4, 2283-8, 2132-01 ####[facility] LABCLIA [id number] [place] [address] [place] AMERICAFolate SerPl-mCncon 05-19-2024 Folate [Mass/Vol]11.1 ng/mLNormal>4.7ClevelMercy Health St. [facility] on above: Order Comment: Specimen Type: BLOOD SPECIMENOrdering Facility: [facility] Address:[address] [place], [place] [address]Performed By: #### 31688- 8, 6-4, 2283-8, 2132-01 ####[facility] LABCLIA [id number] [address] [address] [place] OF AMERICAIron and Iron binding capacity panelon 11-51-0979Sfgjvzolkknbme and review of laboratory resultsAbnormalCleveland ClinicIron [Mass/Vol]47 ug/dL41 - 186 ug/dLBethesda North HospitalIron binding capacity [Mass/Vol]420 ug/dPAxiz708 - 386 ug/dLBethesda North HospitalIron/TIBC [Molar ratio]11.2 %Low15.0 - 57.0 %[facility] ClinicIron [Mass/Vol]47 ug/eQAxgopx46-966GoraalfxkOhiohealth Riverside Methodist HospitalComment on above:Order Comment: Specimen Type: BLOOD SPECIMENOrdering Facility: [facility] Address:[address] [place], [place] [address]Performed By: #### 04034-1, 6-4, 8, 2132-01 ####[facility] LABIA [id number] [address] [place] Iron binding capacity [Mass/Vol]420 ug/sPGtbc331-770JduxxlwipOhiohealth Riverside Methodist Hospital Comment on above:Order Comment: Specimen Type: BLOOD SPECIMENOrdering Facility: [facility] Address:[address] [place] [address] Performed By: #### 78327-2, 2275-4, 8, 2132-01 ####[facility] LABIA [id number] [place] [id number] [facility] OF AMERICAIron/TIBC [Molar ratio]11.2 %Low15.0-57.0[facility] on above:Order Comment: Specimen Type: BLOOD SPECIMENOrdering Facility: [facility] Address:[address] [place], [place] [address]Performed By: #### 28090-8, 2275-4, 8, 2132-01 ####[facility] LABCLIA [id number] [place] [id number] [place] AMERICANo Panel Informationon 82-01-7297Rnthzcctbvviwz and review of laboratory resultsNormalCSelect Medical Specialty Hospital - TrumbullVITAMIN B12 BLOODon 93-30-6992Wogqflwmi (Vitamin B12) [Mass/Vol]632 pg/mL232 - 1245 pg/mL Bethesda North HospitalVit B12 SerPl-mCncon 20-60-3187Wizioitqk (Vitamin B12) [Mass/Vol]632 pg/jOQpouqn177-2159Wkanbbftj Clinic ClevelandComment on above: Order Comment: Specimen Type: BLOOD SPECIMENOrdering Facility: [facility] Address:[address] [place], [place] [address]Performed By: #### 39856- 8, 2276-4, 2284-8, 2132-9 ####[facility] LABCLIA [id number] [place] [address] [place] AMERICACNNURSE on 40-37-0451YQFYBAAFdduuqKdwmpdsfo Clinic ClevelandCNPNon 81-32-7179RXBMMwpfvg [facility] CBC WITH AUTO DIFFon 41-41-2699YCRXZDOZP ABSOLUTE AUTO0.1NOMS HealthcareBasophils/100 WBC (Bld)0.4 %0.2 - 2.0 %[facility] Eosinophils/100 WBC (Bld)0.4 %Low0.9 - 7.0 %NOMS HealthcareErythrocyte distribution width (RBC) [Ratio]15.1 %High11.0 - 15.0 %NOMS HealthcareHematocrit (Bld) [Volume fraction]39.7 %36.0 - 48.0 %NOMS HealthcareHemoglobin (Bld) [Mass/Vol]13 g/dL12.0 - 16.0 g/dLNOMS HealthcareIMMATURE GRANULOCYTES ABS AUTO 0.1HighNOMS HealthcareImmature granulocytes/100 WBC (Bld)0.9 %High0.0 - 0.5 % N[facility] HealthcareInterpretation and review of laboratory resultsAbnormalNOMS HealthcareLYMPHOCYTES ABSOLUTE AUTO2.1NOMS HealthcareLymphocytes/100 WBC (Bld) 18.4 %Low20.5 - 60.0 %NOMS HealthcareMCH (RBC) [Entitic mass]30.9 pg26.7 - 34.0 pgFreeman Health SystemMCHC (RBC) [Mass/Vol]32.7 g/dL29.9 - 35.2 g/dLFreeman Health System MCV (RBC) [Entitic vol]94.3 fL81.0 - 99.0 fLFreeman Health SystemMONOCYTES ABSOLUTE AUTO0.8Freeman Health SystemMonocytes/100 WBC (Bld)6.7 %1.7 - 12.0 %[facility] NEUTROPHILS ABSOLUTE AUTO8.3HighFreeman Health SystemNeutrophils/100 WBC (Bld)73.2 % 43.0 - 75.0 %Freeman Health SystemPlatelet mean volume (Bld) [Entitic vol]10.1 fL9.5 - 13.5 fLSelect Specialty Hospital EO #0.1NCenterPointe Hospital ANN015RCVQBarn[facility]-Jewish Hospital RBC 4.21NOBarnes-Jewish Hospital WBC11.4HighFreeman Health SystemCLINISYNCNGeneral [facility] THYROID STIM HORMONEon 44-03-8651Ljjumzaeezsudd and review of laboratory results AbnormalLafayette Regional Health Center Qn0.333 m[IU]/LLowSt. Luke's Hospital THYROXINE (T4) FREEon 98-36-8162Glep T4 [Mass/Vol]1.01 ng/dL0.76 - 1.46 ng/dLFormerly Vidant Duplin HospitalCCF APTTon 15-17-2201mRIM Coag (Bld) [Time]25.6 [facility] Specialty HospitalMLR HEMOGLOBIN A1Con 82-71-7224Pfjupcs [Mass/Vol]134 mg/dLFreeman Health SystemHbA1c (Bld) [Mass fraction]6.3 %High4.5 - 6.2 %Freeman Health SystemComment on above:ADA RECOMMENDED LIMIT 4.0 - 6.0 ADA THERAPEUTIC TARGET < 7.0 ACTION SUGGESTED > 7.0 Interpretation and review of laboratory resultsAbnormalCritical access hospitalNo Panel Informationon 88-07-1648NLCHNMFUYCKDQAtrium HealthOH PROTHROMBIN TIME INR W/O COUMon 89-52-5082RO Coag (PPP) [Time]9.6 [facility] INR<0.93Freeman Health SystemComment on above: DESIRED INR: 2.0-3.0 CONDITIONS NOT LISTED BELOW 2.5-3.5 FOR PROSTHETIC HEART VALVE REPLACEMENT 2.5-3.5 RECURRENT THROMBOSIS TBH PREG QUANT HCGon 75-48-2126FZS QUANTITATIVE<1mIU/mLNOMS HealthcareComment on above:5-50 0.2-1 WEEK 50-500 1-2 WEEKS 100-5,000 2-3 WEEKS 500-10,000 3-4 WEEKS 1,000-50,000 4-5 WEEKS 10,000-100,000 5-6 WEEKS 15,000-200,000 6-8 WEEKS 10,000-100,000 2-3 MONTHS CNPNon 01-49-0370OONLCtqfiyIwkdwqcds Clinic Exigzspod04([place])D3 SerPl-mCncon 26-22-066961189550-qlpehzeuhoogbq D3 [Mass/Vol]19.9 ng/mLLow31.0-80.0[facility] on above:Order Comment: Specimen Type: BLOOD SPECIMENOrdering Facility: [facility] Address:[address] [place], [place] [address]Result Comment: Classification of 25 [place] Vitamin D status:Deficiency/Insufficiency: < or = 30 ng/ml.Sufficiency/Optimal Levels: 31- 80 ng/mLToxicity: > 100 ng/mL.Test performed by chemiluminescent immunoassay. Performed By: #### 1989-3 ####[facility] LABIA [id number] [address] STATES OF [facility] BLOOD TB SCREENon 03-23-2024M. tuberculosis tuberculin stim IFN-g Ql (Bld) NegativeNormalCChillicothe Hospital on above:Order Comment: Specimen Type: BLOOD SPECIMENOrdering Facility: [facility] Address:[address] [place], [place] [address]Performed By: #### INFTBP ####[facility] LABIA [id number] [address]REETMITOGEN MINUS NIL>10.00Normal>=0.50[facility] on above:Order Comment: Specimen Type: BLOOD SPECIMENOrdering Facility: [facility] Address:[address] [place], [place] [address]Performed By: #### INFTBP ####[facility] LABCLIA [id number] [place] [address] [place] TB GAMMA INTERPRETATIONNoGrant Hospital on above:Order Comment: Specimen Type: BLOOD SPECIMENOrdering Facility: [facility] Address:[address] [place], [place] [address]Performed By: #### INFTBP ####[facility] LABCLIA [id number] [place] [address] [place] AMERICATB NIL<0.00Normal<=8.00[facility] on above:Order Comment: Specimen Type: BLOOD SPECIMENOrdering Facility: [facility] Address:[address] [place], [place] [address]Performed By: #### INFTBP ####[facility] LABCLIA [id number] [place] [address] [place] AMERICATB1 AG MINUS NIL0.00 IU/mLNormal<0.35[facility] on above:Order Comment: Specimen Type: BLOOD SPECIMENOrdering Facility: [facility] Address:[address] [place], [place] [address]Performed By: #### INFTBP ####[facility] LABCLIA [id number] [place] [address] [place] AMERICATB2 AG MINUS NIL0.00 IU/mLNormal<0.35[facility] on above:Order Comment: Specimen Type: BLOOD SPECIMENOrdering Facility: [facility] Address:[address] [place], [place] [address]Performed By: #### INFTBP ####[facility] LABCLIA [id number] [place] [address] [place] AMERICABacteria Bld Culton 03-23-2024 Bacteria identified Cx Nom (Bld)CULTURE, BLOOD: No growth 5 daysNoGrant Hospital on above:Performed By: #### 600-7 ####[facility] LABCLIA [id number] [facility] [id number] W Auto Differential panel (Bld)on 60-31-8535Obyyeapbq (Bld) [#/Vol]0.06 10*3/uLNormal <0.11CChillicothe Hospital on above:Order Comment: Specimen Type: BLOOD SPECIMENOrdering Facility: [facility] Address:[address] [place], [place] [address]Performed By: #### 25552-8 ####[facility] LABCLIA [id number] [place] [address] Basophils/100 WBC (Bld)0.5 %NormalOhio State University [facility] on above: Order Comment: Specimen Type: BLOOD SPECIMENOrdering Facility: [facility] Address:[address] [place], [place] [address]Performed By: #### 98088- 8 ####[facility] LABCLIA [id number] [place], [place] [address]Qwsqbcvjtzuo cell count method Nom (Bld)AutoNormal [facility] on above:Order Comment: Specimen Type: BLOOD SPECIMENOrdering Facility: [facility] Address:[address] [place], [place] [address]Performed By: #### 16488-5 ####[facility] LABCLIA [id number] [place], [place] [address]Rnwgqywvqtz (Bld) [#/Vol]0.13 10*3/uLNormal<0.46[facility] on above: Order Comment: Specimen Type: BLOOD SPECIMENOrdering Facility: [facility] Address:[address] [place], [place] [address]Performed By: #### 54252- 8 ####[facility] LABCLIA [id number] [place], [place] [address]Pdxzswairwj/100 WBC (Bld)1.0 %NormalOhio State University [facility] on above:Order Comment: Specimen Type: BLOOD SPECIMENOrdering Facility: [facility] Address:[address] [place], [place] [address]Performed By: #### 16131-5 ####[facility] LABIA [id number] [place], [place] [address]Aapdbedtgvn distribution width (RBC) [Ratio]15.2 %High11.5-15.0[facility] on above:Order Comment: Specimen Type: BLOOD SPECIMENOrdering Facility: [facility] Address:[address] [place], [place] [address]Performed By: #### 85160- 8 ####[facility] LABIA [id number] [place], [place] [address]Moiieybbgv (Bld) [Volume fraction]39.3 %Oadtnx54.0-46.0 [facility] on above:Order Comment: Specimen Type: BLOOD SPECIMENOrdering Facility: [facility] Address:[address] [place], [place] [address]Performed By: #### 24945-6 ####[facility] LABIA [id number] [place], [place] [address]Yyeeecyfkn (Bld) [Mass/Vol]13.1 g/pMRkzkgi99.5-15.5CChillicothe Hospital on above: Order Comment: Specimen Type: BLOOD SPECIMENOrdering Facility: [facility] Address:[address] [place], [place] [address]Performed By: #### 08457- 8 ####[facility] LABIA [id number] [place], [place] [address]Bittzndk granulocytes (Bld) [#/Vol]0.12 10*3/uLHigh<0.10 [facility] on above:Order Comment: Specimen Type: BLOOD SPECIMENOrdering Facility: [facility] Address:[address] [place], [place] [address]Performed By: #### 72188-8 ####[facility] LABCLIA [id number] [place], [place] [address]Gkcouglg granulocytes/100 WBC (Bld)0.9 %NormalOhio State University [facility] on above: Order Comment: Specimen Type: BLOOD SPECIMENOrdering Facility: [facility] Address:[address] [place], [place] [address]Performed By: #### 07068- 8 ####[facility] LABCLIA [id number] [place], [place] [address]Folxjaqamsi (Bld) [#/Vol]2.03 10*3/uLNormal1.00-4.00 [facility] on above:Order Comment: Specimen Type: BLOOD SPECIMENOrdering Facility: [facility] Address:[address] [place], [place] [address]Performed By: #### 42248-6 ####[facility] LABIA [id number] [place], [place] [address]Qaulkiieyme/100 WBC (Bld)15.7 %NormalOhio State University [facility] on above:Order Comment: Specimen Type: BLOOD SPECIMENOrdering Facility: [facility] Address:[address] [place], [place] [address]Performed By: #### 29386-0 ####[facility] LABCLIA [id number] [place], [place] [address]HZX (RBC) [Entitic mass]31.3 vxNkutud37.0-34.0[facility] on above:Order Comment: Specimen Type: BLOOD SPECIMENOrdering Facility: [facility] Address:[address] [place], [place] [address]Performed By: #### 03596-6 ####[facility] LABIA [id number] [place], [place] [address]TXKS (RBC) [Mass/Vol]33.3 g/lJDdfusq40.5-36.0[facility] on above: Order Comment: Specimen Type: BLOOD SPECIMENOrdering Facility: [facility] Address:[address] [place], [place] [address]Performed By: #### [id number]- 8 ####[facility] LABCLIA [id number] [place], [place] [id number] (RBC) [Entitic vol]93.8 nOVswjfn52.0-100.0[facility] on above:Order Comment: Specimen Type: BLOOD SPECIMENOrdering Facility: [facility] Address:[address] [place], [place] [address]Performed By: #### 74047-9 ####[facility] LABCLIA [id number] [place], [place] [address]Gfpxommsa (Bld) [#/Vol]0.65 10*3/uLNormal<0.87[facility] on above:Order Comment: Specimen Type: BLOOD SPECIMENOrdering Facility: [facility] Address:[address] [place], [place] [address]Performed By: #### 35367- 8 ####[facility] LABCLIA [id number] [place], [place] [address]Nbhqowekf/100 WBC (Bld)5.0 %NormalOhio State University [facility] on above:Order Comment: Specimen Type: BLOOD SPECIMENOrdering Facility: [facility] Address:[address] [place], [place] [address]Performed By: #### 84494-5 ####[facility] LABCLIA [id number] [place], [place] [address]Lsurmdwnack (Bld) [#/Vol]9.90 10*3/uLHigh1.45-7.50[facility] on above:Order Comment: Specimen Type: BLOOD SPECIMENOrdering Facility: [facility] Address:[address] [place], [place] [address]Performed By: #### 66099-5 ####[facility] LABCLIA [id number] [place], [place] [address]Kmnuyoverkb/100 WBC (Bld)76.9 %NormalOhio State University Wex[facility] on above:Order Comment: Specimen Type: BLOOD SPECIMENOrdering Facility: [facility] Address:[address] [place], [place] [address]Performed By: #### 20592-7 ####[facility] LABCLIA [id number] [place], [place] [address]Omvawhnsh RBC (Bld) [#/Vol] 10*3/uLNormal<0.01[facility] on above:Order Comment: Specimen Type: BLOOD SPECIMENOrdering Facility: [facility] Address:[address] [place], [place] [address]Performed By: #### 39437-8 ####[facility] LABCLIA [id number] [place], [place] [address]Bvzdkysoa RBC/100 WBC (Bld) [Ratio]0.0 /100 WBCNormal [facility] on above:Order Comment: Specimen Type: BLOOD SPECIMENOrdering Facility: [facility] Address:[address] [place], [place] [address]Performed By: #### 13545-3 ####[facility] LABCLIA [id number] [place], [place] [address]Icfpyhul mean volume (Bld) [Entitic vol]10.0 fLNormal9.0-12.7CChillicothe Hospital on above:Order Comment: Specimen Type: BLOOD SPECIMENOrdering Facility: [facility] Address:[address] [place] [address] Performed By: #### 04604-8 ####[facility] LABCLIA [id number] [place], [place] [address]Hffnifdij (Bld) [#/Vol]262 10*3/bHAffetc955-694ChvxqtamsOhio State University Wexner Medical [facility] on above:Order Comment: Specimen Type: BLOOD SPECIMENOrdering Facility: [facility] Address:[address] [place], [place] [address]Performed By: #### 47597-0 ####[facility] LABCLIA [id number] [place], [place] [address]AAK (Bld) [#/Vol]4.19 10*6/uLNormal3.90-5.20[facility] on above:Order Comment: Specimen Type: BLOOD SPECIMENOrdering Facility: [facility] Address:[address] [place], [place] [address]Performed By: #### 65802-3 ####[facility] LABCLIA [id number] [place], [place] [address]RHX (Bld) [#/Vol]12.89 10*3/uLHigh3.70-11.00[facility] on above: Order Comment: Specimen Type: BLOOD SPECIMENOrdering Facility: [facility] Address:[address] [place], [place] [address]Performed By: #### 67404- 8 ####[facility] LABCLIA [id number] [place], [place] [address]DCRYSHTbq 80-67-1347WLRJOGEIqmpqtYruvqajpf Clinic ClevelandCRP SerPl-mCncon 31-73-1668VNS [Mass/Vol]0.3 mg/dLNormal<0.9CChillicothe Hospital on above:Order Comment: Specimen Type: BLOOD SPECIMENOrdering Facility: [facility] Address:[address] [place], [place] [address]Performed By: #### 44429-5, 2276-4, 1987-09 ####[facility] LABCLIA [id number] [facility] [address] [address] [place] OF AMERICAComprehensive metabolic 2000 panelon 03-23-2024 Albumin [Mass/Vol]3.9 g/dLNormal3.9-4.9CChillicothe Hospital on above:Order Comment: Specimen Type: BLOOD SPECIMENOrdering Facility: [facility] Address:[address] [place], [place] [address]Performed By: #### 06855-8 ####[facility] LABCLIA [id number] [place] [id number] [place] OF AMERICAALP [Catalytic activity/Vol]70 U/UJhgtom49-912WhkvfoqebOhio State University [facility]xner Medical Center on above:Order Comment: Specimen Type: BLOOD SPECIMENOrdering Facility: [facility] Address:[address] [place], [place] [address]Performed By: #### 48823- 8 ####[facility] LABCLIA [id number] [place] [address] [place] AMERICAALT [Catalytic activity/Vol]27 U/LNormal7-38[facility] on above:Order Comment: Specimen Type: BLOOD SPECIMENOrdering Facility: [facility] Address:[address] [place], [place] [address]Performed By: #### 45280-9 ####[facility] LABCLIA [id number] [place] [id number] [place] AMERICAAnion gap [Moles/Vol]15 mmol/LNormal8-15[facility] on above:Order Comment: Specimen Type: BLOOD SPECIMENOrdering Facility: [facility] Address:[address] [place], [place] [address]Performed By: #### 25826-9 ####[facility] LABCLIA [id number] [place] [id number] [place] AST [Catalytic activity/Vol]20 U/TDqyssh52-51VznzhjrzqOhio State University [facility] on above:Order Comment: Specimen Type: BLOOD SPECIMENOrdering Facility: [facility] Address:[address] [place] [address] Performed By: #### 66513-2 ####[facility] LABCLIA [id number] [place] [address] [place] Bilirubin [Mass/Vol]mg/dLLow0.2-1.3CChillicothe Hospital on above: Order Comment: Specimen Type: BLOOD SPECIMENOrdering Facility: [facility] Address:[address] [place], [place] [address]Performed By: #### 30723- 8 ####[facility] LABCLIA [id number] [place] [address] [place] AMERICACalcium [Mass/Vol]9.2 mg/dLNormal 8.5-10.2CChillicothe Hospital on above:Order Comment: Specimen Type: BLOOD SPECIMENOrdering Facility: [facility] Address:[address] [place], [place] [address]Performed By: #### 64047-7 ####[facility] LABCLIA [id number] [place] [address] [place] AMERICAChloride [Moles/Vol]104 mmol/OJjufbr30-036DdmffcfovOhio State University [facility] Center on above:Order Comment: Specimen Type: BLOOD SPECIMENOrdering Facility: [facility] Address:[address] [place], [place] [address]Performed By: #### 00435-0 ####[facility] LABCLIA [id number] [place] [address] [place] AMERICACO2 [Moles/Vol]20 mmol/SHrc92-31LntqrzeraOhio State University [facility] Medical Center on above:Order Comment: Specimen Type: BLOOD SPECIMENOrdering Facility: [facility] Address:[address] [place], [place] [address]Performed By: #### 70898-6 ####[facility] LABCLIA [id number] [place] [address] [place] AMERICACreatinine [Mass/Vol] 0.61 mg/dLNormal0.58-0.96[facility] on above:Order Comment: Specimen Type: BLOOD SPECIMENOrdering Facility: [facility] Address:[address] [place], [place] [address]Performed By: #### 75728- 8 ####[facility] LABIA [id number] [place] [address] [place] AMERICACreatinine and Glomerular filtration rate.predicted panel (S/P/Bld)114 mL/min/1.73m???Normal>=60[facility] on above:Order Comment: Specimen Type: BLOOD SPECIMENOrdering Facility: [facility] Address:[address] [place], [place] [address]Result Comment: Estimated Glomerular Filtration Rate (eGFR) is calculated using the 2020 CKD-EPI creatinine equation. This equation utilizes serum creatinine, sex, and age as parameters. The creatinine assay has traceable calibration to isotope dilution-mass spectrometry. Refer to KDIGO guidelines for clinical interpretation. In patients with unstable renal function, e.g. those with acute kidney injury, the eGFR may not accurately reflect actual GFR.Performed By: #### 77557-4 ####[facility] LABIA [id number] [place] [address] [place] AMERICAGlucose [Mass/Vol]152 mg/lTKurn85-55MfuzvzcpsOhio State University [facility] on above:Order Comment: Specimen Type: BLOOD SPECIMENOrdering Facility: [facility] Address:[address] [place], [place] [address]Result Comment: The [place] Diabetes Association (ADA) provides guidance for cutoff [...] unequivocal hyperglycemia, results should be confirmed by repeattesting. In a patient with classic symptoms of hyperglycemia or hyperglycemic crisis, random plasmaglucose results greater than or equal to 200 mg/dL meet the criteria for diagnosis of diabetes.Reference: Standards of Medical Care in Diabetes 2016, [place] [employer] Association. Diabetes Care. 2016.39(Suppl 1).Performed By: #### 63326-3 ####[facility] LABCLIA [id number] [place] [address] [place] AMERICAPotassium [Moles/Vol]4.3 mmol/LNormal3.7-5.1CMary [facility] Comment on above:Order Comment: Specimen Type: BLOOD SPECIMENOrdering Facility: [facility] Address:[address] [place] [address] Performed By: #### 27662-5 ####[facility] LABIA [id number] [place] [address] [place] Protein [Mass/Vol]6.6 g/dLNormal6.3-8.0[facility] Shawment on above:Order Comment: Specimen Type: BLOOD SPECIMENOrdering Facility: [facility] Address:[address] [place], [place] [address]Performed By: #### 62418-5 ####[facility] [id number] [place] [address] [place] AMERICASodium [Moles/Vol]139 mmol/CEcvgrf878-451CrpsvcwexOhiohealth Riverside Methodist HospitalComment on above:Order Comment: Specimen Type: BLOOD SPECIMENOrdering Facility: [facility] Address:[address] [place], [place] [address]Performed By: #### 40846-4 ####[facility] LABIA [id number] [place] [id number] [place] AMERICAUrea nitrogen [Mass/Vol]20 mg/dL Normal7-21[facility] on above:Order Comment: Specimen Type: BLOOD SPECIMENOrdering Facility: [facility] Address:[address] [place], [place] [address]Performed By: #### 56546-1 ####[facility] LABIA [id number] [place] [address] [place] AMERICAESR Westergren method (Bld) [Velocity]on 35-66-0480HED (Bld) [Velocity]27 mm/hHigh0-20[facility] on above:Order Comment: Specimen Type: BLOOD SPECIMENOrdering Facility: [facility] Address:[address] [place], [place] [address]Performed By: #### 4537-7 ####[facility] LABIA [id number] [place] [address] [place] AMERICAFerritin SerPl-mCncon 03-23-2024 Ferritin [Mass/Vol]33.3 ng/sVJqusiq18.7-205.1CChillicothe Hospital on above:Order Comment: Specimen Type: BLOOD SPECIMENOrdering Facility: [facility] Address:[address] [place] [address] Performed By: #### 07905-2, 2276-4, 1987-09 ####[facility] LABCLIA [id number] [place] [address] [place] AMERICAFolate SerPl-mCncon 72-69-5810Jbokyy [Mass/Vol]13.0 ng/mLNormal>4.7 [facility] on above:Order Comment: Specimen Type: BLOOD SPECIMENOrdering Facility: [facility] Address:[address] [place], [place] [address]Performed By: #### 2132-9, 2284-8 ####[facility] LABIA [id number] [place] [address] [place] AMERICAHCG ( test) Ql (U)on 54-40-9952Eztmrysgltcddl and review of laboratory resultsNormalNOMS HealthcarePreg Test, UrNegativeNegative NOMS HealthcareNOMS HealthcareIMMUNOGLOBULINS,IGG,IGA,IGMon 50-01-0690ArE [Mass/Vol]171 mg/oKWbbayz95-307HjkfvuzpxOhio State University [facility] on above:Order Comment: Specimen Type: BLOOD SPECIMENOrdering Facility: [facility] Address:[address] [place], [place] [address]Performed By: #### SERIMM ####[facility] LABCLIA [id number] [place] [id number] [place] AMERICAIgG [Mass/Vol]476 mg/dLLow 700-1600[facility] on above:Order Comment: Specimen Type: BLOOD SPECIMENOrdering Facility: [facility] Address:[address] [place], [place] [address]Performed By: #### SERIMM ####[facility] LABCLIA [id number] [place] [id number] [place] AMERICAIgM [Mass/Vol]373 mg/oAUccs40-433HyuyxjeakOhio State University [facility] on above:Order Comment: Specimen Type: BLOOD SPECIMENOrdering Facility: [facility] Address:[address] [place], [place] [address]Performed By: #### SERIMM ####[facility] LABIA [id number] [place] [address] [place] [employer] binding capacity panelon 34-77-3345Xtkk [Mass/Vol]67 ug/dLNormal 41-186[facility] on above:Order Comment: Specimen Type: BLOOD SPECIMENOrdering Facility: [facility] Address:[address] [place], [place] [address]Performed By: #### 33782-0, 2275-08, 1987-09 ####[facility] LABCLIA [id number] [place] [id number] [place] AMERICAIron binding capacity [Mass/Vol] 399 ug/lOFwpw829-593RqsttfdauOhio State University [facility] on above:Order Comment: Specimen Type: BLOOD SPECIMENOrdering Facility: [facility] Address:[address] [place], [place] [address]Performed By: #### 03224-8, 2275-08, 1987-09 ####[facility] LABCLIA [id number] [place] [id number] [place] AMERICAIron/TIBC [Molar ratio]16.8 % Aviwvr73.0-57.0[facility] Methodist HospitalComment on above:Order Comment: Specimen Type: BLOOD SPECIMENOrdering Facility: [facility] Address:[address] [place], [place] [address]Performed By: #### 55342-4, 2275-4, 1987-09 ####[facility] LABCLIA [id number] [facility] [place]77[place]JPOXLAVOLOW[place], [place] [address] [place] AMERICAUrinalysis macro (dipstick) panel (U)on 61-35-7645Ihidhbgxd, UANegativeNegative - 4(70) +++ mg/dLNOMS Healthcare Blood, UAPositiveNegative - 50 Dusty/mcLNOMS HealthcareComment on above:large Clarity, UACloudyNOMS HealthcareColor, UADark AmberNOMS HealthcareGlucose, UA PositiveNegative - 2000(110) ++++ mg/dLNOMS HealthcareComment on above:100 mg Interpretation and review of laboratory resultsAbnormalNOMS HealthcareKetones, UANegativeNegative - 160(16) ++++ mg/dLNOMS HealthcareLeukocytes, UAPositive Negative - 500+++ Andi/mcLNOMS HealthcareComment on above:smallNitrite, UA NegativeNegative - PositiveNOMS HealthcarepH, UA5.55 - 9NOMS HealthcareProtein, UAPositiveNegative - 2000(20) ++++ mg/dLNOMS HealthcareComment on above:30 mg Spec Grav, UA1.031 - 1.03NOMS HealthcareUrobilinogen, UA0.20.2 - 12 mg/dLNOMS HealthcareNOMS HealthcareVit B12 SerPl-mCncon 82-96-1671Ubzwwolpa (Vitamin B12) [Mass/Vol]607 pg/nLTayaly873-4292Vyuzbttjf Clinic ClevelandComment on above: Order Comment: Specimen Type: BLOOD SPECIMENOrdering Facility: [facility] Address:[address] [place], [place] [address]Performed By: #### 2132- 9, 8 ####[facility] LABCLIA [id number] [id number] [address] [place] OF AMERICAOffice Visiton 03-08-2024 Follow-up [id number] Ariadna Haley 1980 F Date Provider Department Center 03/08/2024 Renny-CARLENEERICHANÍBALGalCALOS CARD [facility] Family History Problem Relation Age of Onset Heart failure Maternal Grandmother Heart attack Maternal Grandfather Family Status - Relation Status Age at Maternal Grandmother Maternal Grandfather Level of Service:[address] [place] OFFICE/OUTPATIENT NEW MODERATE MDM 45 MINUTESNormal [facility] HospitalHCG ( test) IA.rapid Ql (U)Ordered By: Adolfo Kang on 80-19-8806SQA ( test) Ql (U)NegativePremier Health Miami Valley HospitalECG 12 Leadon 14-76-0140ARK revealed normal sinus rhythm [facility]AClinton [facility] Work Phone: CB AUTO DIFFon 96-44-8270DCRD #0.1 103/ulNormal 0.0-0.1The [facility] HospitalComment on above:Performed By: #### UAMIC #### [facility] [address] [place] [address] [address] Manda YorkBasophils/100 WBC (Bld)0.6 %Normal0.2-2.0The [facility] Comment on above:Performed By: #### UAMIC #### [facility] [address] [place] [address] [address] Manda Shafer #0.1 103/ulNormal0.0-0.7The [facility] HospitalComment on above: Performed By: #### UAMIC #### [facility] [address] [place] [address] [address] Manda Noonanosinophils/100 WBC (Bld)0.6 %Critically low0.9-7.0The [facility] HospitalComment on above:Performed By: #### UAMIC #### [facility] [address] [place] [address] [address] Manda Noonanrythrocyte distribution width (RBC) [Ratio]14.6 %Wqyipl34.0-15.0 The [facility] HospitalComment on above:Performed By: #### UAMIC #### [facility] [address] [place] [address] Dr. Manda YorkHematocrit (Bld) [Volume fraction]43.4 %Ydnclf48.0-48.0The Cherokee HospitalComment on above:Performed By: #### UAMIC #### [facility] [address] [place] [address] Dr. Manda YorkHemoglobin (Bld) [Mass/Vol]13.7 g/bWHopuvd39.0-16.0The [facility] HospitalComment on above:Performed By: #### UAMIC #### [facility] [address] [place] [address] Dr. Manda Calderon #0.12 10e3/ulCritically high0.00-0.03The [facility] Comment on above:Performed By: #### UAMIC #### [facility] [address] [place] [address] Dr. Manda Calderon %0.8 %Critically high0.0-0.5The [facility] HospitalComment on above:Performed By: #### UAMIC #### [facility] [address] [place] [address] Dr. Manda Laguna #2.6 103/ulNormal1.2-3.8The [facility] HospitalComment on above:Performed By: #### UAMIC #### [facility] [address] [place] [address] Dr. Manda Ravihocytes/100 WBC (Bld)18.3 %Critically low20.5-60.0The [facility] HospitalComment on above:Performed By: #### UAMIC #### [facility] [address] [place] [address] Dr. Manda Dela CruzUAL DIFF REQNONormalThe [facility] HospitalComment on above: Performed By: #### UAMIC #### [facility] [address] [place] [address] Dr. Manda Gil (RBC) [Entitic mass]29.0 rtTtpljl73.7-34.0The [facility] HospitalComment on above:Performed By: #### UAMIC #### [facility] [address] [place] [address] Dr. Manda Cardoso (RBC) [Mass/Vol]31.6 g/yTGnyxxc26.9-35.2The [facility] HospitalComment on above:Performed By: #### UAMIC #### [facility] [address] [place] [address] Dr. Manda Cardoso (RBC) [Entitic vol]91.8 rLDpmwqq02.0-99.0The [facility] HospitalComment on above:Performed By: #### UAMIC #### [facility] [address] [place] [address] Dr. Manda Maciel #0.7 103/ulNormal0.3-0.8The [facility] HospitalComment on above:Performed By: #### UAMIC #### [facility] [address] [place] [address] Dr. Manda Coteocytes/100 WBC (Bld)5.1 %Normal1.7-12.0The [facility] Comment on above:Performed By: #### UAMIC #### [facility] [address] [place] [address] Dr. Manda Claudio #10.6 103/ulCritically high1.4-6.5The [facility] Comment on above:Performed By: #### UAMIC #### [facility] [address] [place] [address] Dr. Manda Longutrophils/100 WBC (Bld)74.6 %Aseykl99.0-75.0The [facility] HospitalComment on above:Performed By: #### UAMIC #### [facility] [address] [place] [address] Dr. Manda Ferreiralet mean volume (Bld) [Entitic vol]9.4 fLCritically low 9.5-13.5The [facility] HospitalComment on above:Performed By: #### UAMIC #### [facility] [address] [place] [address] Dr. Manda YorkPLT307 103/lfUihoak034-551Fsf [facility] on above: Performed By: #### UAMIC #### [facility] [address] [place] [address] Dr. Manda YorkRBC4.73 106/ulNormal4.20-5.40The [facility] HospitalComcorewell health gerber hospital on above:Performed By: #### UAMIC #### [facility] [address] [place] [address] Dr. Manda YorkWBC14.2 103/ulCritically high4.0-11.0The [facility] on above:Performed By: #### UAMIC #### [facility] [address] [place] [address] Dr. Manda YorkFREE T4on 55-56-7099Iume T4 [Mass/Vol]1.31 ng/dLNormal0.76-1.46 The [facility] HospitalComcorewell health gerber hospital on above:Performed By: #### FT4 #### [facility] [address] [place] [address] Dr. Manda YorkGLYCOHEMOGLOBIN A1Con 74-19-4457ZMC RECOMMENDATIONSEE BELOWNormal [facility] Arms HospitalComcorewell health gerber hospital on above:Result Comment: ADA RECOMMENDED LIMIT 4.0 - 6.0 ADA THERAPEUTIC TARGET < 7.0 ACTION SUGGESTED > 7.0Performed By: #### A1C #### [facility] [address] [place] [address] Dr. Manda YorkGlucose [Mass/Vol]120 mg/dLNormalThe [facility] HospitalComcorewell health gerber hospital on above:Performed By: #### A1C #### [facility] [address] [place] [address] Dr. Manda YorkHbA1c (Bld) [Mass fraction]5.8 %Normal4.5-6.2[facility] on above:Performed By: #### A1C #### [facility] [address] [place] [address] Dr. Manda Howe QUANT HCGon 04-17-4078BRS QUANT<1NormalSheltering Arms Hospital Comment on above:Performed By: #### FT4 #### [facility] [address] [place] [address] Dr. Manda Renee [facility]ult[facility] HospitalComment on above: Result Comment: 5-50 0.2-1 WEEK 50-500 1-2 WEEKS 100-5,000 2-3 WEEKS 500-10,000 3-4 WEEKS 1,000-50,000 4-5 WEEKS 10,000-100,000 5-6 WEEKS 15,000-200,000 6-8 WEEKS 10,000-100,000 2-3 MONTHSPerformed By: #### FT4 #### [facility] [address] [place] [address] Dr. Manda YorkPROTIMEon 74-92-3736HBP Coag (PPP) [Relative time]{INR}NormalThe [facility] HospitalComment on above:Performed By: #### FT4 #### [facility] [address] [place] [address] Dr. Manda Bah [facility] CenterComment on above:Result Comment: DESIRED INR: 2.0 - 3.0 CONDITIONS NOT LISTED BELOW 2.5 - 3.5 FOR PROSTHETIC HEART VALVE REPLACEMENT 2.5 - 3.5 RECURRENT THROMBOSIS Performed By: #### FT4 #### [facility] [address] [place] [address] Dr. Manda Rizvi Coag (PPP) [Time]9.6 sNormal9.0-11.6ThUniversity Hospitals Lake [facility] Comment on above:Performed By: #### FT4 #### [facility] [address] [place] [address] Dr. Manda Crews 53-48-9060qGUO Coag (Bld) [Time]28.2 yXrfeau36.3-36.2S[facility] HospitalComment on above:Performed By: #### FT4 #### [facility] [address] [place] [address] Dr. Manda Fowler 80-94-7346QMU3.300 uIU/mLCritically low0.358-3.740The [facility]field HospitalComment on above:Performed By: #### FT4 #### [facility] [address] [place] [address] Dr. Manda Post PELVIS TRANSVAGon [id number] PELVIS TRANSVAGEXAMINATION: US PELVIS TRANSVAG HISTORY: Excessive menstruation with [...] Electronically authenticated by: AURORA SHAIKH Date: 2022-09-24 17:50[facility] ACOG PANEL 2: 30 to 65on 09-18-2022..NormalThe [facility]health Mansfield HospitalComment on above:Result Comment: Performed at: WBPerformed By: #### FT4 #### [facility] [address] [place] [address] Dr. Manda Ceballos Gdln ACOG Gvrzqai12-91FwgjxzYjtDayton VA Medical CenterComment on above:Performed By: #### FT4 #### [facility] [address] [address] [address] Manda YorkDIAGNOSIS:CommentSelect Medical Specialty Hospital - Cincinnati NorthComment on above: Result Comment: NEGATIVE FOR INTRAEPITHELIAL LESION OR MALIGNANCY. Performed at: WBPerformed By: #### FT4 #### [facility] [address] [place] [address] Dr. Manda YorkHPV AptimaNegativeNormalNegativeThe [facility] on above:Result Comment: This nucleic acid amplification test detects fourteen high-risk HPV types (16,18,31,33,35,39,45,51,52,56,58,59,66,68) without differentiation. Performed at: =GPerformed By: #### FT4 #### [facility] [address] [place] [address] Dr. Manda YorkHPV Genotype ReflexCommentNoBethesda North Hospital on above:Result Comment: Criteria not met, HPV Genotype not performed. Performed at: WBPerformed By: #### FT4 #### [place] [address] [address] Manda YorkMethodology:CommentDayton Children's Hospital on above: Result Comment: This liquid based ThinPrep(R) pap test was screened with the use of an image guided system. Performed at: WBPerformed By: #### FT4 #### [place] [address] [address] Manda YorkNote:CommentDayton Children's Hospital on above:Result Comment: The Pap smear is a screening test designed to aid in the detection of premalignant and malignant conditions of the uterine cervix. It is not a diagnostic procedure and should not be used as the sole means of detecting cervical cancer. Both false-positive and false-negative reports do occur. . Performed at: WBPerformed By: #### FT4 #### [facility] [address] [place] [address] Dr. Manda YorkPerformed by:CommentNoBethesda North Hospital on above: Result Comment: Charles Petres, In House Counsel (ASCP) Performed at: WBPerformed By: #### FT4 #### [place] [address] [address] Manda YorkSpecaamir adequacy:CommentDayton Children's Hospital on above:Result Comment: Satisfactory for evaluation. Endocervical and/or squamous metaplastic cells (endocervical component) are present. Performed at: WBPerformed By: #### FT4 #### [facility] [address] [address] [address] Manda Barker Cervical or vaginal smear or scraping studyOrdered By: Hazel Torres on [id number] HealthcareMG MAMM SCREEN 3D SELENE CADon [id number] MAMM SCREEN 3D SELENE CADPatient: ARIADNA HALEY Exam Date: 09/01/2022 : 1980 Gender:F Ordering : DR MANUEL FERRIS . Admission #: [id number] Family : Order #: [id number] CLICK HERE TO VIEW EXAM RADIOLOGY REPORT [...] cancer at age 56. LOCATION: [facility] BREAST COMPOSITION: Scattered areas fibroglandular density. [...] by: Sayda Yusuf M.D. on 09/02/2022 at 12:32[facility] NorthMRI KNEE RT WO CONon [id number] KNEE RT WO CONHISTORY: Right knee pain since a tripping injury. [...] Electronically authenticated by: MANUEL GOMEZ Date: 2022-04-01 08:24NoDayton VA Medical CenterPNEUMOCOCCAL IGG ABS, 23 SEROTYPESon [id number] InterpretationSee NoteMorrow County Hospital. pneumoniae 1 IgG (S) [Mass/Vol]0.27 ug/mLCleveland ClinicS. pneumoniae 12 IgG (S) [Mass/Vol]0.08 ug/mLCmercy health st. anne hospital ClinicS. pneumoniae 14 IgG (S) [Mass/Vol]0.19 ug/mLCleveland ClinicS. pneumoniae 17 IgG (S) [Mass/Vol]1.72 ug/mLCleveland ClinicS. pneumoniae 19 IgG (S) [Mass/Vol]1.52 ug/mLCleveland ClinicS. pneumoniae 2 IgG (S) [Mass/Vol]0.44 ug/mL [facility]. pneumoniae 20 IgG (S) [Mass/Vol]1.53 ug/mLCleveland ClinicS. pneumoniae 22 IgG (S) [Mass/Vol]0.99 ug/mLCleveland ClinicS. pneumoniae 23 IgG (S) [Mass/Vol]0.14 ug/mLCleveland ClinicS. pneumoniae 3 IgG (S) [Mass/Vol]0.36 ug/mLCleveland ClinicS. pneumoniae 34 IgG (S) [Mass/Vol]5.77 ug/mLCleveland ClinicS. pneumoniae 4 IgG (S) [Mass/Vol]0.06 ug/mLCleveland ClinicS. pneumoniae 43 IgG (S) [Mass/Vol]0.93 ug/mLCleveland ClinicS. pneumoniae 5 IgG (S) [Mass/Vol]0.89 ug/mLCleveland ClinicS. pneumoniae 8 IgG (S) [Mass/Vol]0.58 ug/mL [facility]. pneumoniae 9 IgG (S) [Mass/Vol]0.4 ug/mLCleveland ClinicS. pneumoniae Eritrean type 15B IgG (S) [Mass/Vol]8.27 ug/mLCleveland ClinicS. pneumoniae Eritrean type 18C IgG (S) [Mass/Vol]0.39 ug/mLCleveland ClinicS. pneumoniae Eritrean type 19A IgG (S) [Mass/Vol]17.72 ug/mLCleveland ClinicS. pneumoniae Eritrean type 33F IgG (S) [Mass/Vol]3.04 ug/mLCleveland ClinicS. pneumoniae Eritrean type 6B IgG (S) [Mass/Vol]0.82 ug/mLCleveland ClinicS. pneumoniae Eritrean type 7F IgG (S) [Mass/Vol]0.34 ug/mLCleveland ClinicS. pneumoniae Eritrean type 9V IgG (S) [Mass/Vol]0.78 ug/mLCleveland ClinicXR KNEE RT 4V or >on 43-70-7971QV KNEE RT 4V or >IMAGES REVIEWED: XR KNEE RT 4V or > COMPARISON: None available. CLINICAL INDICATION: Injury of right knee FINDINGS/IMPRESSION: 1. No evidence of acute osseous abnormality of the right knee. 2. Nonspecific small suprapatellar effusion. 3. Mild anterior infrapatellar knee soft tissue swelling. Electronically authenticated by: KRISTINA GARRETT Date: 2022-03-21 16:47[facility] NorthDIPHTHER/TETANUS ABon 03-20-2022. diphtheriae IgG Qn (S)0.1 IU/mLCleveland Buffalo Hospital. tetani toxoid IgG IA Qn1 IU/mLCleveland [facility]ges HospitalIGA BLDon 53-73-6378DpP [Mass/Vol]182 mg/dL70 - 400 mg/dLBethesda North HospitalIGE BLDon 30-37-4452LfC Qn12.3 kU/l<114.0 kU/lCleveland [facility] HospitalIGGon 71-79-0474UkL [Mass/Vol]618 mg/kPWim273 - 1,600 mg/dLBethesda North HospitalIGMon 63-88-4714XbF [Mass/Vol]514 mg/gWGsml58 - 230 mg/dLBethesda North HospitalImmunodeficiency panel FC (Bld)on 11-19-9097OZ6 cells (Bld) [#/Vol]2841 cells/zVBxap202 - 2,388 cells/uL [facility] HospitalCD3 cells/100 cells (Bld)81 %60 - 89 %[facility] HospitalCD3+CD4+ (T4 helper) cells (Bld) [#/Vol]1621 cells/uL533 - 1,674 cells/uLBethesda North Hospital CD3+CD4+ (T4 helper) cells/100 cells (Bld)46 %34 - 61 %[facility] HospitalCD3+CD4+ (T4 helper) cells/CD3+CD8+ (T8 suppressor cells) cells (Bld) [# ratio]1.55 %1.10 - 3.25Bethesda North HospitalCD3+CD8+ (T8 suppressor cells) cells (Bld) [#/Vol]1049 cells/kZCdsd088 - 958 cells/uLBethesda North HospitalCD3+CD8+ (T8 suppressor cells) cells/100 cells (Bld)30 %10 - 41 %[facility] HospitalCD3-CD16+CD56+ (Natural killer) cells (Bld) [#/Vol]193 cells/uL102 - 565 cells/uLBethesda North HospitalCD3- CD16+CD56+ (Natural killer) cells/100 cells (Bld)5 %5 - 25 %[facility] HospitalCD3- CD19+ cells (Bld) [#/Vol]475 cells/uL75 - 660 cells/uLBethesda North HospitalCD3-CD19+ cells/100 cells (Bld)13 %5 - 22 %[facility] W Auto Differential panel (Bld)on 94-73-5272Xluxcoisl (Bld) [#/Vol]0.07 10*3/uL<0.11 k/uLBethesda North Hospital Basophils/100 WBC (Bld)0.6 %[facility] HospitalDifferential cell count method Nom (Bld)AutoCleveland ClinicEosinophils (Bld) [#/Vol]0.18 10*3/uL<0.46 k/uL [facility] HospitalEosinophils/100 WBC (Bld)1.6 %[facility] HospitalErythrocyte distribution width (RBC) [Ratio]14.6 %11.5 - 15.0 %[facility] HospitalHematocrit (Bld) [Volume fraction]40.5 %36.0 - 46.0 %[facility] HospitalHemoglobin (Bld) [Mass/Vol]13.0 g/dL11.5 - 15.5 g/dLBethesda North HospitalImmature granulocytes (Bld) [#/Vol]0.06 10*3/uL<0.10 k/uLBethesda North HospitalImmature granulocytes/100 WBC (Bld) 0.5 %[facility] HospitalLymphocytes (Bld) [#/Vol]2.97 10*3/uL1.00 - 4.00 k/uL [facility] HospitalLymphocytes/100 WBC (Bld)26.9 %[facility] HospitalH (RBC) [Entitic mass]28.4 pg26.0 - 34.0 pgClevelRidgeview Sibley Medical CenterHC (RBC) [Mass/Vol]32.1 g/dL30.5 - 36.0 g/dLWilson Street HospitalV (RBC) [Entitic vol]88.4 fL80.0 - 100.0 fLCleveland ClinicMonocytes (Bld) [#/Vol]0.79 10*3/uL<0.87 k/uLBethesda North Hospital Monocytes/100 WBC (Bld)7.2 %[facility]endez ClinicNeutrophils (Bld) [#/Vol]6.97 10*3/uL1.45 - 7.50 k/uLTipton ClinicNeutrophils/100 WBC (Bld)63.2 %[place] ClinicNucleated RBC (Bld) [#/Vol]<0.01 k/uLTipton ClinicNucleated RBC/100 WBC (Bld) [Ratio]0.0 /100 WBCTipton ClinicPlatelet mean volume (Bld) [Entitic vol]9.9 fL9.0 - 12.7 fLClevelthe outer banks hospital ClinicPlatelets (Bld) [#/Vol]314 10*3/uL150 - 400 k/uLTipton ClinicRBC (Bld) [#/Vol]4.58 10*6/uL3.90 - 5.20 m/uLBethesda North HospitalWBC (Bld) [#/Vol]11.04 10*3/uLHigh3.70 - 11.00 k/uLBethesda North Hospital ECHOCARDIO M/2D COMPLETEon [id number] M/2D COMPLETEPatient: TERAMARENLE Reji Exam Date: 03/12/2022 : 1980 Gender:F Ordering : DR MANUEL FERRIS . Admission #: [id number] Family : Order #: [id number] CLICK HERE TO VIEW EXAM ECHOCARDIOGRAM REPORT [...] 40.04 ml, 40.04 ml Dictated by: Calos Arce M.D. on 03/16/2022 at 16:43 Approved by: Calos Arce M.D. on 03/16/2022 at 16:47NormalThUniversity Hospitals Lake West Medical CenterINSULINon 63-22-1218Vsmumfp49.8 uIU/mLNormal2.6-24.9The [facility] HospitalComment on above:Performed By: #### CBC #### [facility] [address] [place] [address] Dr. Manda Bruce AUTO DIFFon 72-83-9357LXEJ #0.1 103/ulNormal0.0-0.1The [facility] HospitalComment on above:Performed By: #### CBC #### [facility] [address] [address] [address] Manda Stroudsophils/100 WBC (Bld)0.4 %Normal0.2-2.0[facility] Comment on above:Performed By: #### CBC #### [facility] [address] [address] [address] Manda Shafer #0.2 103/ulNormal0.0-0.7The [facility] HospitalComcorewell health gerber hospital on above: Performed By: #### CBC #### [facility] [address] [address] [address] Manda Noonanosinophils/100 WBC (Bld)1.2 %Normal0.9-7.0[facility] Comment on above:Performed By: #### CBC #### [facility] [address] [place] [address] Dr. Manda Noonanrythrocyte distribution width (RBC) [Ratio]14.6 %Txfejj39.0-15.0 The Cherokee HospitalComment on above:Performed By: #### CBC #### [facility] [address] [address] [address] Manda Riveroatomillit (Bld) [Volume fraction]39.2 %Kazwer43.0-48.0The [facility] HospitalComment on above:Performed By: #### CBC #### [facility] [address] [place] [address] Dr. Manda YorkHemoglobin (Bld) [Mass/Vol]12.7 g/rSKcmddo31.0-16.0The [facility] HospitalComment on above:Performed By: #### CBC #### [facility] [address] [place] [address] Dr. Manad Calderon #0.06 10e3/ulCritically high0.00-0.03The [facility] Comment on above:Performed By: #### CBC #### [facility] [address] [place] [address] Dr. Manda Calderon %0.5 %Normal0.0-0.5The [facility] Hospitalment on above: Performed By: #### CBC #### [facility] [address] [place] [address] Dr. Manda Laguna #3.7 103/ulNormal1.2-3.8The [facility] on above:Performed By: #### CBC #### [facility] [address] [place] [address] Dr. Manda Ravihocytes/100 WBC (Bld)31.0 %Cfxlar04.5-60.0The [facility] Hospitalment on above:Performed By: #### CBC #### [facility] [address] [place] [address] Dr. Manda Dela CruzUAL DIFF REQNONormalThe [facility] HospitalComment on above: Performed By: #### CBC #### [facility] [address] [place] [address] Dr. Manda Gil (RBC) [Entitic mass]28.9 psQcohlu87.7-34.0The Carl HospitalComment on above:Performed By: #### CBC #### [facility] [address] [place] [address] Dr. Manda Cardoso (RBC) [Mass/Vol]32.4 g/rJQmqmqk17.9-35.2The [facility] HospitalComment on above:Performed By: #### CBC #### [facility] [address] [place] [address] Dr. Manda Bradshaw (RBC) [Entitic vol]89.1 gPElafok96.0-99.0The [facility] HospitalComment on above:Performed By: #### CBC #### [facility] [address] [place] [address] Dr. Manda Maciel #0.7 103/ulNormal0.3-0.8The [facility] HospitalComment on above:Performed By: #### CBC #### [facility] [address] [place] [address] Dr. Manda Coteocytes/100 WBC (Bld)5.8 %Normal1.7-12.0The [facility] Comment on above:Performed By: #### CBC #### [facility] [address] [place] [address] Dr. Manda Claudio #7.3 103/ulCritically high1.4-6.5The [facility] Comment on above:Performed By: #### CBC #### [facility] [address] [place] [address] Dr. Manda Longutrophils/100 WBC (Bld)61.1 %Ksogke27.0-75.0The [facility] HospitalComment on above:Performed By: #### CBC #### [facility] [address] [place] [address] Dr. Manda Ferreiralet mean volume (Bld) [Entitic vol]9.7 fLNormal9.5-13.5The [facility] HospitalComment on above:Performed By: #### CBC #### [facility] [address] [place] [address] Dr. Manda LewisT297 103/ztCsxtby402-959Lzs [facility] HospitalComment on above: Performed By: #### CBC #### [facility] [address] [place] [address] Dr. Manda YorkRBC4.40 106/ulNormal4.20-5.40The [facility] HospitalComment on above:Performed By: #### CBC #### [facility] [address] [place] [address] Dr. Manda YorkWBC12.0 103/ulCritically high4.0-11.0The [facility] HospitalComment on above:Performed By: #### CBC #### [facility] [address] [place] [address] Dr. Manda Hilton THYROXINE INDEX T7on 70-15-0182SQQ1.99Jpwzkd1.30-4.50[facility] HospitalComment on above:Performed By: #### UAMIC #### [facility] [address] [place] [address] Dr. Manda YorkT3U34.0 %Ffsmjr69.0-39.0The [facility] HospitalComment on above: Performed By: #### UAMIC #### [facility] [address] [place] [address] Dr. Manda YorkT4 [Mass/Vol]11.20 ug/dLNormal4.80-13.90[facility] Comment on above:Performed By: #### UAMIC #### [facility] [address] [place] [address] Dr. Manda YorkGLYCOHEMOGLOBIN A1Con 15-49-5199TLL RECOMMENDATIONSEE BELOWNormal The [facility] HospitalComment on above:Result Comment: ADA RECOMMENDED LIMIT 4.0 - 6.0 ADA THERAPEUTIC TARGET < 7.0 ACTION SUGGESTED > 7.0Performed By: #### LUIGI LAWLER #### [facility] [address] [place] [address] Dr. Manda YorkGlucose [Mass/Vol]117 mg/dLNormalThe [facility] HospitalComment on above:Performed By: #### LUIGI LAWLER #### [facility] [address] [address] [address] Manda YorkHbA1c (Bld) [Mass fraction]5.7 %Normal4.5-6.2The [facility] on above:Performed By: #### LUIGI LAWLER #### [facility] [address] [address] [address] Manda Garcia 68-73-3802Hjym [Mass/Vol]61.0 ug/hEBzkbhs48.0-170.0The [facility] Hospitalment on above:Performed By: #### CBC #### [facility] [address] [place] [address] Dr. Manda ScottID PROFILEon 83-52-2235KNBB-HDL RATIO NORMSEE [facility] HospitalComment on above:Result Comment: 3.3 - 4.4 LOW RISK 4.4 - 7.1 AVERAGE RISK 7.1 - 11.0 MODERATE RISK >11.0 HIGH RISKPerformed By: #### UAMIC #### [facility] [address] [place] [address] Dr. Manda Dislaesterol [Mass/Vol]260 mg/dLCritically high<=200The [facility] on above:Performed By: #### UAMIC #### [facility] [address] [place] [address] Dr. Manda YorkCholesterol in HDL [Mass/Vol]38 mg/dLCritically lej91-20Mme [facility] on above:Performed By: #### UAMIC #### [facility] [address] [place] [address] Dr. Manda Dislaesterol in LDL [Mass/Vol]170.8 mg/dLDayton Children's Hospital on above:Performed By: #### UAMIC #### [facility] [address] [place] [address] Dr. Manda Dislaesterselene.total/Cholesterol in HDL [Mass ratio]6.8 {ratio} NormalThe [facility] on above:Performed By: #### UAMIC #### [facility] [address] [place] [address] Dr. Manda Marte NORMAL> or = 60 mg/dl - LOW CARDIOVASCULAR RISK <40 mg/dl - HIGH CARDIOVASCULAR RISKSelect Medical Specialty Hospital - [facility] NorthComment on above:Performed By: #### UAMIC #### [facility] [address] [place] [address] Dr. Manda Zamora CALC NORMALSEE BELOWSelect Medical Specialty Hospital - Cincinnati NorthComment on above:Result Comment: <100 mg/dl OPTIMAL 100 - 129 mg/dl NEAR OR ABOVE OPTIMAL 130 - 159 mg/dl BORDERLINE HIGH 160 - 189 mg/dl HIGH >190 mg/dl VERY HIGH Performed By: #### UAMIC #### [facility] [address] [place] [address] Dr. Manda YorkTriglyceride [Mass/Vol]256 mg/dLCritically high<=150The [facility] HospitalComment on above:Performed By: #### UAMIC #### [facility] [address] [place] [address] Dr. Manda LinoLDL CALC51.2 mg/dLNoDayton VA Medical CenterComment on above: Performed By: #### UAMIC #### [facility] [address] [place] [address] Dr. Manda YorkPROShelley 14(COMP METB)on 90-01-5010Oxnjbai [Mass/Vol]3.8 g/dLNormal 3.4-5.0The [facility] HospitalComment on above:Performed By: #### UAMIC #### [facility] [address] [place] [address] Dr. Manda YorkAlbumin/Globulin [Mass ratio]1.0 {ratio}NormalThe [facility] HospitalComment on above:Performed By: #### UAMIC #### [facility] [address] [place] [address] Dr. Manda GraffP [Catalytic activity/Vol]66 U/XOybcri52-913Nwa [facility] HospitalComment on above:Performed By: #### UAMIC #### [facility] [address] [place] [address] Dr. Manda Person [Catalytic activity/Vol]27 U/FRkyrap91-84Epz [facility] HospitalComment on above:Performed By: #### UAMIC #### [facility] [address] [place] [address] Dr. Manda Gregoryon gap [Moles/Vol]11.8 mmol/LNormalSheltering Arms Hospital Comment on above:Performed By: #### UAMIC #### [facility] [address] [address] [address] Manda YorkAST [Catalytic activity/Vol]9 U/LCritically hqy80-27Fvv [facility] HospitalComment on above:Performed By: #### UAMIC #### [facility] [address] [place] [address] Dr. Manda YorkBilirubin [Mass/Vol]0.2 mg/dLNormal0.2-1.0[facility] Comment on above:Performed By: #### UAMIC #### [facility] [address] [place] [address] Dr. Manda YorkCalcium [Mass/Vol]9.1 mg/dLNormal8.5-10.1[facility] Comment on above:Performed By: #### UAMIC #### [facility] [address] [place] [address] Dr. Manda YorkChloride [Moles/Vol]101 mmol/BBtysfs13-334MrvSheltering Arms Hospital Comment on above:Performed By: #### UAMIC #### [facility] [address] [place] [address] Dr. Manda YorkCO2 [Moles/Vol]26.1 mmol/AMnxxay17.0-32.0The [facility] Comment on above:Performed By: #### UAMIC #### [facility] [address] [place] [address] Dr. Manda YorkCreatinine [Mass/Vol]0.80 mg/dLNormal0.55-1.02The [facility] HospitalComment on above:Performed By: #### UAMIC #### [facility] [address] [place] [address] Dr. Manda NoonanGFR-AF KITTITIAN>60Normal>=60The [facility] HospitalComment on above:Performed By: #### UAMIC #### [facility] [address] [place] [address] Dr. Manda NoonanGFR-NON AF KITTITIAN>60Normal>=60The [facility] HospitalComment on above:Performed By: #### UAMIC #### [facility] [address] [address] [address] Manda YorkGlobulin (S) [Mass/Vol]3.8 g/dLNormalThe [facility] HospitalComment on above:Performed By: #### UAMIC #### [facility] [address] [place] [address] Dr. Manda YorkGlucose [Mass/Vol]93 mg/oEWoiuny13-594Wkm [facility] Comment on above:Performed By: #### UAMIC #### [facility] [address] [place] [address] Dr. Manda YorkPotassium [Moles/Vol]3.9 mmol/LNormal3.5-5.1The [facility] Comment on above:Performed By: #### UAMIC #### [facility] [address] [place] [address] Dr. Manda YorkProtein [Mass/Vol]7.6 g/dLNormal6.4-8.2The [facility] Comment on above:Performed By: #### UAMIC #### [facility] [address] [place] [address] Dr. Manda YorkSodium [Moles/Vol]135 mmol/LCritically yru204-122Kyk [facility] HospitalComment on above:Performed By: #### UAMIC #### [facility] [address] [place] [address] Dr. Manda YorkUrea nitrogen [Mass/Vol]10.0 mg/dLNormal7.0-18.0The [facility] HospitalComment on above:Performed By: #### UAMIC #### [facility] [address] [place] [address] Dr. Manda YorkUrea nitrogen/Creatinine [Mass ratio]12.5 mg/mgNormalThe [facility] HospitalComment on above:Performed By: #### UAMIC #### [facility] [address] [address] [address] Manda CruzHomaria e 45-19-1522SSO9.610 uIU/mLNormal0.358-3.740[facility] HospitalComment on above:Performed By: #### UAMIC #### [facility] [address] [address] [address] Manda YorkB2 MICROGLOBULIN Bon 95-06-8148Talh-2-Microglobulin [Mass/Vol]1.8 ug/mL0.8 - 2.4 mg/LCleveland ClinicFERRITIN BLDon 69-74-0426Bghihjne [Mass/Vol] 33.2 ng/mL14.7 - 205.1 ng/mLCleveland ClinicFOLATE SERUMon 62-70-2877Tlhnuy [Mass/Vol]6.6 ng/mL>4.7 ng/mLCleveland ClinicIron and Iron binding capacity panelon 25-24-7557Pcln [Mass/Vol]49 ug/dL41 - 186 ug/dLCleaultman hospital ClinicIron binding capacity [Mass/Vol]392 ug/iZHqrk149 - 386 ug/dLBethesda North HospitalIron/TIBC [Molar ratio]12.5 %Low15.0 - 57.0 %[facility] HospitalCB W Auto Differential panel (Bld)on 39-67-9558Zecfbhklt (Bld) [#/Vol]0.07 10*3/uL<0.11 k/uLBethesda North HospitalBasophils/100 WBC (Bld)0.6 %[facility] HospitalDifferential cell count method Nom (Bld)AutoCleveland ClinicEosinophils (Bld) [#/Vol]0.19 10*3/uL<0.46 k/uL [facility] HospitalEosinophils/100 WBC (Bld)1.7 %[facility] HospitalErythrocyte distribution width (RBC) [Ratio]14.7 %11.5 - 15.0 %[facility] HospitalHematocrit (Bld) [Volume fraction]40.0 %36.0 - 46.0 %[facility] HospitalHemoglobin (Bld) [Mass/Vol]13.0 g/dL11.5 - 15.5 g/dLBethesda North HospitalImmature granulocytes (Bld) [#/Vol]0.07 10*3/uL<0.10 k/uLBethesda North HospitalImmature granulocytes/100 WBC (Bld) 0.6 %[facility] HospitalLymphocytes (Bld) [#/Vol]3.31 10*3/uL1.00 - 4.00 k/uL [facility] HospitalLymphocytes/100 WBC (Bld)30.2 %[facility] ([facility]BC) [Entitic mass]28.9 pg26.0 - 34.0 pgCThe MetroHealth SystemHC (RBC) [Mass/Vol]32.5 g/dL30.5 - 36.0 g/dLWilson Street HospitalV (RBC) [Entitic vol]88.9 fL80.0 - 100.0 fLClevelSt. Elizabeth HospitalMonocytes (Bld) [#/Vol]0.70 10*3/uL<0.87 k/uLBethesda North Hospital Monocytes/100 WBC (Bld)6.4 %[facility] HospitalNeutrophils (Bld) [#/Vol]6.63 10*3/uL1.45 - 7.50 k/uLBethesda North HospitalNeutrophils/100 WBC (Bld)60.5 %[facility] HospitalNucleated RBC (Bld) [#/Vol]<0.01 k/uLBethesda North HospitalNucleated RBC/100 WBC (Bld) [Ratio]0.0 /100 WBCBethesda North HospitalPlatelet mean volume (Bld) [Entitic vol]9.6 fL9.0 - 12.[address] [facility] ClinicPlatelets (Bld) [#/Vol]355 10*3/uL150 - 400 k/uLBethesda North HospitalRBC (Bld) [#/Vol]4.50 10*6/uL3.90 - 5.20 m/uLBethesda North HospitalWBC (Bld) [#/Vol]10.97 10*3/uL3.70 - 11.00 k/uLBethesda North Hospital Calcium.ionized [Moles/Vol]on 75-46-7039Iuenxow.ionized (Bld) [Mass/Vol]1.26 mmol/L1.08 - 1.30 mmol/LCleveland ClinicCalcium.ionized adjusted to pH 7.4 (Bld) [Moles/Vol]1.25 mmol/L1.08 - 1.30 mmol/LCleveland ClinicComprehensive metabolic 2000 panelon 75-05-6775Lybzmvg [Mass/Vol]4.3 g/dL3.9 - 4.9 g/dLBethesda North Hospital ALP [Catalytic activity/Vol]70 U/L34 - 123 U/LCleveland ClinicALT [Catalytic activity/Vol]26 U/L7 - 38 U/LCleveland ClinicAnion gap [Moles/Vol]7 mmol/LLow9 - 18 mmol/LCleveland ClinicAST [Catalytic activity/Vol]12 U/LLow13 - 35 U/L [facility] HospitalBilirubin [Mass/Vol]0.2 mg/dL0.2 - 1.3 mg/dLBethesda North Hospital Calcium [Mass/Vol]9.3 mg/dL8.5 - 10.2 mg/dLBethesda North HospitalChloride [Moles/Vol] 103 mmol/L97 - 105 mmol/LCleveland ClinicCO2 [Moles/Vol]28 mmol/L22 - 30 mmol/L [facility] HospitalCreatinine [Mass/Vol]0.69 mg/dL0.58 - 0.96 mg/dLBethesda North Hospital Estimated Glomerular Filtration Cgcb097 mL/min/1.73m>=60 mL/min/1.73mCleveland M Health Fairview Ridges HospitalGlucose [Mass/Vol]100 mg/bLWyib75 - 99 mg/dLBethesda North HospitalPotassium [Moles/Vol]3.9 mmol/L3.7 - 5.1 mmol/LCleveland ClinicProtein [Mass/Vol]7.0 g/dL 6.3 - 8.0 g/dLMorrow County Hospitalodium [Moles/Vol]138 mmol/L136 - 144 mmol/L [facility] HospitalUrea nitrogen [Mass/Vol]12 mg/dL7 - 21 mg/dLBethesda North HospitalLD LACTATE DEHYDROon 70-19-4886IPD [Catalytic activity/Vol]135 U/L135 - 214 U/L [facility] HospitalPHOSPHORUS INORGANICon 64-07-3129Hjkfuuoil [Mass/Vol]3.2 mg/dL 2.7 - 4.8 mg/dLCleTrinity Health System East CampusURIC ACID BLOODon 68-91-5378Dysxe [Mass/Vol]5.2 mg/dL2.5 - 6.6 mg/dLCleTrinity Health System East CampusIMMUNOGLOBULINS IGA/IGM/IGG/IGE QUANTITAon 43-09-8235Fdienrorynnvnf A, Qn, Bkgrq166 mg/kDOkykwe23-585SctSheltering Arms Hospital Comment on above:Result Comment: Performed at: CBPerformed By: #### SLEA, THYLC #### [facility] [address] [place] [address] Dr. Manda YorkImmunoglobulin E, Total10 IU/mLNormal6-495[facility] Comment on above:Result Comment: Performed at: BNPerformed By: #### SLEA, THYLC #### [facility] [address] [place] [address] Dr. Manda YorkImmunoglobulin G, Qn, Icfpk279 mg/jACazeny450-5467XftSheltering Arms HospitalComment on above:Result Comment: Performed at: CBPerformed By: #### SLEA, THYLC #### [facility] [address] [address] [address] Manda YorkImmunoglobulin M, Qn, Rxybh227 mg/dLCritically fvap96-616BuaSheltering Arms HospitalComment on above:Result Comment: Performed at: CBPerformed By: #### SLEA, THYLC #### [facility] [address] [place] [address] Dr. Manda YorkANA by IFAon 84-11-4865Ipztjmynsjq Antibodies, IFANegativeNormal [facility] HospitalComment on above:Result Comment: Negative <1:80 Borderline 1:80 Positive >1:80 ICAP nomenclature: AC-0 For more information about Hep-2 cell patterns use ANApatterns.org, the official website for the International Consensus on Antinuclear Antibody (CHRISTIAN) Patterns (ICAP).Performed By: #### SLEA, THYLC #### [facility] [address] [place] [address] Dr. Manda YorkTHYROID ANTIBODIESon 50-09-0501Fdbxspgcznbox Antibody<1.0Normal 0.0-0.9The [facility] HospitalComment on above:Result Comment: Thyroglobulin Antibody measured by ThirdLove MethodologyPerformed By: #### FT4 #### [facility] [address] [place] [address] Dr. Manda YorkThyroid Peroxidase (TPO) Ab<0Bzneuk9-82Beo [facility] Comment on above:Performed By: #### FT4 #### [facility] [address] [place] [address] Dr. Manda YorkPROTEIN ELECTROPHERESISon 44-32-9231Soatoac [Mass/Vol]3.2 g/dL Normal2.9-4.4The [facility] HospitalComment on above:Performed By: #### FT4 #### [facility] [address] [place] [address] Dr. Manda YorkAlbumin/Globulin [Mass ratio]1.0 {ratio}Normal0.7-1.7The [facility] HospitalComment on above:Performed By: #### FT4 #### [facility] [address] [place] [address] Dr. Manda YorkOheppUobwi-7-Hkzxdswx1.2 g/dLNormal0.0-0.4The [facility] HospitalComment on above:Performed By: #### FT4 #### [facility] [address] [place] [address] Dr. Manda YorkJgygiBakjj-5-Khftgupg6.9 g/dLNormal0.4-1.0The [facility] HospitalComment on above:Performed By: #### FT4 #### [facility] [address] [place] [address] Dr. Manda YorkBeta Globulin1.2 g/dLNormal0.7-1.3The [facility] HospitalComment on above:Performed By: #### FT4 #### [facility] [address] [place] [address] Dr. Manda YorkGamma Globulin0.9 g/dLNormal0.4-1.8The [facility] HospitalComment on above:Performed By: #### FT4 #### [facility] [address] [address] [address] Manda YorkGlobulin (S) [Mass/Vol]3.2 g/dLNormal2.2-3.9[facility] Comment on above:Performed By: #### FT4 #### [facility] [address] [place] [address] Dr. Manda YorkM-SpikeNot ObservedNormalNot ObservedThe [facility] HospitalComment on above:Performed By: #### FT4 #### [facility] [address] [place] [address] Dr. Manda YorkPDF.NormalThe [facility] HospitalComment on above:Performed By: #### FT4 #### [facility] [address] [place] [address] Dr. Manda YorkPlekeiko note:CommentNormalThe [facility] HospitalComment on above: Result Comment: Protein electrophoresis scan will follow via computer, mail, or electron microprobe operator delivery.Performed By: #### FT4 #### [facility] [address] [place] [address] Dr. Manda YorkProtein [Mass/Vol]6.4 g/dLNormal6.0-8.5The [facility] Comment on above:Performed By: #### FT4 #### [facility] [address] [place] [address] Dr. Manda Echavarria PROFILE Aon 50-54-4209Dloo-DNA (DS) Ab Qn9 IU/mLNormal0-9The [facility] HospitalComment on above:Result Comment: Negative <5 Equivocal 5 - 9 Positive >9Performed By: #### SLEA THYLC #### [facility] [address] [place] [address] Dr. Manda YorkAntichromatin Antibodies<0.1Yqltxo5.0-0.9[facility] Comment on above:Performed By: #### SLEA THYLC #### [facility] [address] [place] [address] Dr. Manda Sanches Latex Turbid.<10.0Normal<14.0The Carl HospitalComment on above:Performed By: #### SLELEANN MelendezC #### [facility] [address] [place] [address] Dr. Manda Chowdary Antibodies<0.9Tcrvtl3.0-0.9The [facility] HospitalComment on above:Performed By: #### SLELEANN MelendezC #### [facility] [address] [place] [address] Dr. Manda Harmon Anti-SS-A<0.3Salxyv9.0-0.9The [facility] on above:Performed By: #### LEANN LAWLERC #### [facility] [address] [place] [address] Dr. Manda Harmon Anti-SS-B<0.4Ygccfd5.0-0.9The [facility] HospitalComcorewell health gerber hospital on above:Performed By: #### LEANN LAWLERC #### [facility] [address] [place] [address] Dr. Manda Lloyd Antibodies<0.7Bjeqiw5.0-0.9The [facility] HospitalComment on above:Performed By: #### LEANN LAWLERC #### [facility] [address] [place] [address] Dr. Manda MezaSTREPTOLYSIN O AB (ASO)on 20-12-4205Mxzkkiztkiqelnet O Ab49.6 IU/mLNormal0.0-200.0[facility] on above:Performed By: #### ASOAB #### [facility] [address] [place] [address] Dr. Manda YorkMICROALBUMIN URINEon 77-96-1001Lcotxmq, Urine<3.0NormalNot Estab. The [facility] HospitalComment on above:Result Comment: Verified by repeat analysisPerformed By: #### CBC #### [facility] [address] [place] [address] Dr. Manda YorkT4, T3U, FTI LABCORPon 26-00-3866Rzsu Thyroxine Index2.6Normal 1.2-4.9The [facility] HospitalComment on above:Performed By: #### LUIGI LAWLER #### [facility] [address] [place] [address] Dr. Manda YorkT3 Hkdpfi14 %Iecvzs33-02Pfv [facility] HospitalComment on above: Performed By: #### LEANN LAWLERC #### [facility] [address] [place] [address] Dr. Manda YorkT4 [Mass/Vol]9.9 ug/dLNormal4.5-12.0The [facility] HospitalComment on above:Performed By: #### LUIGI LAWLER #### [facility] [address] [place] [address] Dr. Manda Bruce AUTO DIFFon 84-34-0216FLOI #0.1 103/ulNormal0.0-0.1The [facility] HospitalComment on above:Performed By: #### UAMIC #### [facility] [address] [place] [address] Dr. Manda YorkBasophils/100 WBC (Bld)0.6 %Normal0.2-2.0The [facility] Comment on above:Performed By: #### UAMIC #### [facility] [address] [place] [address] Dr. Manda Shafer #0.3 103/ulNormal0.0-0.7The [facility] HospitalComment on above: Performed By: #### UAMIC #### [facility] [address] [place] [address] Dr. Manda Noonanosinophils/100 WBC (Bld)3.4 %Normal0.9-7.0The [facility] Comment on above:Performed By: #### UAMIC #### [facility] [address] [place] [address] Dr. Manda Noonanrythrocyte distribution width (RBC) [Ratio]14.6 %Xgvzzf47.0-15.0 The [facility] HospitalComment on above:Performed By: #### UAMIC #### [facility] [address] [place] [address] Dr. Manda Riveroatocrit (Bld) [Volume fraction]39.1 %Baivqu84.0-48.0The [facility] HospitalComment on above:Performed By: #### UAMIC #### [facility] [address] [place] [address] Dr. Manda YorkHemoglobin (Bld) [Mass/Vol]12.4 g/aUNjbqtb03.0-16.0The [facility] HospitalComment on above:Performed By: #### UAMIC #### [facility] [address] [place] [address] Dr. Manda Calderon #0.03 10e3/ulNormal0.00-0.03The [facility] HospitalComcorewell health gerber hospital on above:Performed By: #### UAMIC #### [facility] [address] [place] [address] Dr. Manda Calderon %0.3 %Normal0.0-0.5The [facility] HospitalComment on above: Performed By: #### UAMIC #### [facility] [address] [place] [address] Dr. Manda Laguna #3.6 103/ulNormal1.2-3.8The [facility] HospitalComcorewell health gerber hospital on above:Performed By: #### UAMIC #### [facility] [address] [place] [address] Dr. Manda Bolañosmphocytes/100 WBC (Bld)39.9 %Ydhplj61.5-60.0The [facility] on above:Performed By: #### UAMIC #### [facility] [address] [place] [address] Dr. Manda YorkMANUAL DIFF REQNONormalThe [facility] HospitalComment on above: Performed By: #### UAMIC #### [facility] [address] [place] [address] Dr. Manda Gil (RBC) [Entitic mass]28.4 auPuhxli49.7-34.0The [facility] HospitalComment on above:Performed By: #### UAMIC #### [facility] [address] [address] [address] Manda CardosoHC (RBC) [Mass/Vol]31.7 g/qLOdznrk47.9-35.2The [facility] HospitalComment on above:Performed By: #### UAMIC #### [facility] [address] [address] [address] Manda CardosoV (RBC) [Entitic vol]89.7 wXBqzwer82.0-99.0The [facility] HospitalComment on above:Performed By: #### UAMIC #### [facility] [address] [place] [address] Dr. Manda Maciel #0.7 103/ulNormal0.3-0.8The [facility] HospitalComment on above:Performed By: #### UAMIC #### [facility] [address] [place] [address] Dr. Manda Coteocytes/100 WBC (Bld)7.3 %Normal1.7-12.0The [facility] Comment on above:Performed By: #### UAMIC #### [facility] [address] [place] [address] Dr. Manda Claudio #4.4 103/ulNormal1.4-6.5The [facility] HospitalComment on above:Performed By: #### UAMIC #### [facility] [address] [place] [address] Dr. Manda Longutrophils/100 WBC (Bld)48.5 %Mcwuza19.0-75.0The [facility] HospitalComment on above:Performed By: #### UAMIC #### [facility] [address] [place] [address] Dr. Manda Ferreiralet mean volume (Bld) [Entitic vol]10.1 fLNormal9.5-13.5The [facility] HospitalComment on above:Performed By: #### UAMIC #### [facility] [address] [place] [address] Dr. Manda YorkPLT310 103/xmAydwcu631-344Jon [facility] Hospitalment on above: Performed By: #### UAMIC #### [facility] [address] [place] [address] Dr. Manda YorkRBC4.36 106/ulNormal4.20-5.40The [facility] Hospitalment on above:Performed By: #### UAMIC #### [facility] [address] [place] [address] Dr. Manda YorkWBC9.0 103/ulNormal4.0-11.0The [facility] Hospitalment on above: Performed By: #### UAMIC #### [facility] [address] [place] [address] Dr. Manda YorkCROwen 30-60-9823FAN [Mass/Vol]mg/LNormal<=1.0The [facility] on above:Performed By: #### UAMIC #### [facility] [address] [place] [address] Dr. Manda YorkCUDAGOBERTO URINEon 56-56-7816NQNMGTG URINECulture Observations: LIGHT GROWTH OF MIXED GENITAL AMBER. NO POTENTIAL PATHOGENS SEEN.NormalThe [facility] HospitalComment on above:Performed By: #### CBC #### [facility] [address] [place] [address] Dr. Manda Macdonald 14(COMP METB)on 96-12-8361Ebmuath [Mass/Vol]3.5 g/dLNormal 3.4-5.0The [facility] HospitalComment on above:Performed By: #### UAMIC #### [facility] [address] [place] [address] Dr. Manda YorkAlbumin/Globulin [Mass ratio]1.0 {ratio}NormalThe [facility] on above:Performed By: #### UAMIC #### [facility] [address] [place] [address] Dr. Manda GraffP [Catalytic activity/Vol]71 U/ZYqrmus04-477Kfu [facility] Hospitalment on above:Performed By: #### UAMIC #### [facility] [address] [place] [address] Dr. Manda Person [Catalytic activity/Vol]46 U/LXzumtl56-42Pir [facility] HospitalComment on above:Performed By: #### UAMIC #### [facility] [address] [address] [address] Manda Gregoryon gap [Moles/Vol]11.6 mmol/LNormalSheltering Arms Hospital Comment on above:Performed By: #### UAMIC #### [facility] [address] [address] [address] Manda YorkAST [Catalytic activity/Vol]15 U/ZLemohp28-07Dsz [facility] HospitalComment on above:Performed By: #### UAMIC #### [facility] [address] [place] [address] Dr. Manda oYrkBilirubin [Mass/Vol]0.2 mg/dLNormal0.2-1.0[facility] Comment on above:Performed By: #### UAMIC #### [facility] [address] [place] [address] Dr. Manda YorkCalcium [Mass/Vol]8.7 mg/dLNormal8.5-10.1[facility] Comment on above:Performed By: #### UAMIC #### [facility] [address] [place] [address] Dr. Manda YorkChloride [Moles/Vol]104 mmol/NIkwnbb48-910Ifm [facility] Comment on above:Performed By: #### UAMIC #### [facility] [address] [place] [address] Dr. Manda YorkCO2 [Moles/Vol]25.1 mmol/EOkwnte52.0-32.0The [facility] Comment on above:Performed By: #### UAMIC #### [facility] [address] [place] [address] Dr. Manda YorkCreatinine [Mass/Vol]0.80 mg/dLNormal0.55-1.02The [facility] HospitalComment on above:Performed By: #### UAMIC #### [facility] [address] [place] [address] Dr. Manda NoonanGFR-AF KITTITIAN>60Normal>=60The [facility] HospitalComment on above:Performed By: #### UAMIC #### [facility] [address] [place] [address] Dr. Manda NoonanGFR-NON AF KITTITIAN>60Normal>=60The [facility] HospitalComment on above:Performed By: #### UAMIC #### [facility] [address] [address] [address] Manda YorkGlobulin (S) [Mass/Vol]3.6 g/dLNormalThe [facility] HospitalComment on above:Performed By: #### UAMIC #### [facility] [address] [place] [address] Dr. Manda YorkGlucose [Mass/Vol]92 mg/aVLofxhv75-098EyoSheltering Arms Hospital Comment on above:Performed By: #### UAMIC #### [facility] [address] [place] [address] Dr. Manda YorkPotassium [Moles/Vol]3.7 mmol/LNormal3.5-5.1The [facility] Comment on above:Performed By: #### UAMIC #### [facility] [address] [place] [address] Dr. Manda YorkProtein [Mass/Vol]7.1 g/dLNormal6.4-8.2[facility] Comment on above:Performed By: #### UAMIC #### [facility] [address] [place] [address] Dr. Manda YorkSodium [Moles/Vol]137 mmol/ZVkdubi570-092Scm [facility] Comment on above:Performed By: #### UAMIC #### [facility] [address] [place] [address] Dr. Manda YorkUrea nitrogen [Mass/Vol]17.0 mg/dLNormal7.0-18.0The [facility] HospitalComment on above:Performed By: #### UAMIC #### [facility] [address] [place] [address] Dr. Manda YorkUrea nitrogen/Creatinine [Mass ratio]21.2 mg/mgNormalThe [facility] HospitalComment on above:Performed By: #### UAMIC #### [facility] [address] [place] [address] Dr. Manda Mckeon RATE WESTERGRENon 02-85-1361MEG RATE40 mm/hrCritically high <=20The [facility] HospitalComment on above:Performed By: #### SEDR #### [facility] [address] [address] [address] Manda Fowler 86-69-3488SRR7.155 uIU/mLNormal0.358-3.740The [facility] HospitalComment on above:Performed By: #### UAMIC #### [facility] [address] [place] [address] Dr. Manda Lynch RANDOM W/MICROSCOPICon 45-54-8819ZWJOZOIJZIIO SEENNormalNONE SEENSheltering Arms HospitalComment on above:Performed By: #### UAMIC #### [facility] [address] [place] [address] Dr. Manda Plummer Ql (U)NegativeNormalNEGATIVESheltering Arms Hospital Comment on above:Performed By: #### UAMIC #### [facility] [address] [place] [address] Dr. Manda Middleton SEENNormalNONE SEENSheltering Arms HospitalComment on above:Performed By: #### UAMIC #### [facility] [address] [place] [address] Dr. Manda Dietz (U)CLEARNormalCLEARSheltering Arms HospitalComment on above: Performed By: #### UAMIC #### [facility] [address] [place] [address] Dr. Manda Meadows (U)LT. YELLOWNormalYELLOWSheltering Arms HospitalComment on above:Performed By: #### UAMIC #### [facility] [address] [place] [address] Dr. Manda Oconnell LM Nom (Urine sed)NONE SEENNormalNONE SEENSheltering Arms HospitalComment on above:Performed By: #### UAMIC #### [facility] [address] [address] [address] Holman ChangEpithelial cells LM Ql (Urine sed)RARENormalNONE SEEN /RAREThe [facility] HospitalComment on above:Performed By: #### UAMIC #### [facility] [address] [address] [address] Manda YorkGlucose Ql (U)NegativeNormalNEGATIVESheltering Arms HospitalComment on above:Performed By: #### UAMIC #### [facility] [address] [place] [address] Dr. Manda YorkHemoglobin Ql (U)NegativeNormalNEGATIVEMagruder Memorial Hospital on above:Performed By: #### UAMIC #### [facility] [address] [place] [address] Dr. Manda YorkKetones Ql (U)NegativeNormalNEGATIVESheltering Arms HospitalComment on above:Performed By: #### UAMIC #### [facility] [address] [place] [address] Dr. Manda YorkLEUKOCYTESNegativeNormalNEGATIVESheltering Arms HospitalComment on above:Performed By: #### UAMIC #### [facility] [address] [place] [address] Dr. Manda YorkMUCOUSNONE SEENNormalNONE SEENSheltering Arms HospitalComment on above:Performed By: #### UAMIC #### [facility] [address] [place] [address] Dr. Manda YorkNitrite Ql (U)NegativeNormalNEGATIVESheltering Arms HospitalComment on above:Performed By: #### UAMIC #### [facility] [address] [place] [address] Dr. Manda YorkpH (U)6.0 [pH]Normal5-9The [facility] HospitalComment on above: Performed By: #### UAMIC #### [facility] [address] [place] [address] Dr. Manda YorkRBCNONE SEENAbnormal0-2The [facility] HospitalComment on above: Performed By: #### UAMIC #### [facility] [address] [place] [address] Dr. Manda YorkSPEC GRAVITY1.520Hslozt8.005-<=1.025Sheltering Arms HospitalComment on above:Performed By: #### UAMIC #### [facility] [address] [place] [address] Dr. Manda Lynch PROTEINNegativeNormalNEGATIVE/ TRACEThe [facility] Comment on above:Performed By: #### UAMIC #### [facility] [address] [place] [address] Dr. Manda Thompsonbilinogen Qn (U)0.2 {Carmella'U}/dLNormal0.2 - 1.0S[facility] HospitalComment on above:Performed By: #### UAMIC #### [facility] [address] [place] [address] Dr. Manda YorkWBCNONE SEENNormalNONE SEENSheltering Arms HospitalComment on above: Performed By: #### UAMIC #### [facility] [address] [place] [address] Dr. Manda YorkURIC ACID SERUMon 78-04-2476Cqegi [Mass/Vol]4.2 mg/dLNormal 2.6-6.0S[facility] HospitalComment on above:Performed By: #### UAMIC #### [facility] [address] [place] [address] Dr. Manda YorkVITAMIN D 25 OHon 73-41-0317VXY D 25-OH22.4 ng/mLNormalSheltering Arms HospitalComment on above:Performed By: #### FT4 #### [facility] [address] [place] [address] Dr. Manda Bee D RANGESSEE Norwalk Memorial HospitalComment on above: Result Comment: <20 ng/mL Vit D deficient 20 - <30 ng/mL Vit D insufficient 30 - 100 ng/mL Vit D sufficient >100 ng/mL Potential ToxicityPerformed By: #### FT4 #### [facility] [address] [place] [address] Dr. Manda YorkMETANEPHRINELucinda FRAC. QNT 24 HR URINEon 36-65-6903Rrkvlcdibfzs, U,80snVzvlvobDggirf80-355Iyo [facility]vue HospitalComment on above:Result Comment: No total volume submitted. Unable to calculate 24 hour result.Performed By: #### LEANN LAWLERC #### [facility] [address] [place] [address] Dr. Manda YorkMetanephrine, Ur57 ug/LNormalUndefinedSheltering Arms Hospital Comment on above:Performed By: #### LEANN LAWLERC #### [facility] [address] [place] [address] Dr. Manda Wrenetanep.,U,43nQasnjeeGajddu137-120Omv [facility] Comment on above:Result Comment: No total volume submitted. Unable to calculate 24 hour result.Performed By: #### LEANN LAWLERC #### [facility] [address] [place] [address] Dr. Manda Barcenasrmetanephrine, Ur116 ug/LNormalUndefinedSheltering Arms Hospital Comment on above:Performed By: #### LEANN LAWLERC #### [facility] [address] [place] [address] Dr. Manda YorkMETANEPHRINELucinda PLASMA FREEon 68-74-6097Qahtmsmlnkez, Pl22.1 pg/mL Normal0.0-88.0[facility] HospitalComment on above:Performed By: #### NURIS THYLC #### [facility] [address] [place] [address] Dr. Manda YorkNormetanephrine, Pl50.7 pg/mLNormal0.0-218.9[facility] Comment on above:Performed By: #### NURIS THYLC #### [facility] [address] [place] [address] Dr. Manda YorkCMV PLASMA PCRon [id number] Quant DNA PCR (Plasma)Negative NormalNegativeSheltering Arms HospitalComment on above:Result Comment: No CMV DNA detected. The quantitative range of this assay is 200 to 1 million IU/mL.Performed By: #### NURIS THYLC #### [facility] [address] [place] [address] Dr. Manda Yorklog10 CMV Qn DNA PlUPTCALNoalThUniversity Hospitals Lake West Medical CenterComment on above:Result Comment: Unable to calculate result since non-numeric result obtained for component test.Performed By: #### NURIS THYLC #### [facility] [address] [place] [address] Dr. Manda NavarreteV AB IGMon 12-40-5387Daqgpolfcvauofj (CMV) Ab, IgM43.2 AU/mL Critically high0.0-29.9The [facility] HospitalComment on above:Result Comment: Negative <30.0 Equivocal 30.0 - 34.9 Positive >34.9 A positive result is generally indicative of acute infection, reactivation or persistent IgM production.Performed By: #### NURIS THYLC #### [facility] [address] [place] [address] Dr. Manda NavarreteV AB, IGGon 87-29-6783Ysornzqfkvfkpsq (CMV) Ab, IgG>10.00 Critically high0.00-0.59[facility] HospitalComment on above:Result Comment: Negative <0.60 Equivocal 0.60 - 0.69 Positive >0.69Performed By: #### CMVIGG #### [facility] [address] [place] [address] Dr. Manda Bruce AUTO DIFFon 58-89-6949PJEH #0.1 103/ulNormal0.0-0.1The [facility] HospitalComment on above:Performed By: #### CBC #### [facility] [address] [place] [address] Dr. Madna YorkBasophils/100 WBC (Bld)0.6 %Normal0.2-2.0[facility] Comment on above:Performed By: #### CBC #### [facility] [address] [place] [address] Dr. Manda Shafer #0.2 103/ulNormal0.0-0.7The [facility] HospitalComment on above: Performed By: #### CBC #### [facility] [address] [place] [address] Dr. Manda Noonanosinophils/100 WBC (Bld)2.3 %Normal0.9-7.0The [facility] Comment on above:Performed By: #### CBC #### [facility] [address] [place] [address] Dr. Manda Noonanrythrocyte distribution width (RBC) [Ratio]14.2 %Sngkwr50.0-15.0 The [facility] HospitalComment on above:Performed By: #### CBC #### [facility] [address] [place] [address] Dr. Manda YorkHematocrit (Bld) [Volume fraction]40.2 %Yrtlgt27.0-48.0The [facility] HospitalComment on above:Performed By: #### CBC #### [facility] [address] [place] [address] Dr. Manda YorkHemoglobin (Bld) [Mass/Vol]12.8 g/kRVjhaso72.0-16.0The [facility] HospitalComment on above:Performed By: #### CBC #### [facility] [address] [place] [address] Dr. Manda Calderon #0.02 10e3/ulNormal0.00-0.03The [facility] HospitalComment on above:Performed By: #### CBC #### [facility] [address] [place] [address] Dr. Manda Calderon %0.2 %Normal0.0-0.5The [facility] HospitalComment on above: Performed By: #### CBC #### [facility] [address] [place] [address] Dr. Manda BolañosMPH #2.5 103/ulNormal1.2-3.8The [facility] HospitalComment on above:Performed By: #### CBC #### [facility] [address] [place] [address] Dr. Manda Bolañosmphocytes/100 WBC (Bld)24.9 %Kjpdkf53.5-60.0The [facility] HospitalComment on above:Performed By: #### CBC #### [facility] [address] [place] [address] Dr. Manda Richards DIFF REQNONormalThe [facility] HospitalComment on above: Performed By: #### CBC #### [facility] [address] [place] [address] Dr. Manda Cardoso (RBC) [Entitic mass]27.9 abZetmss26.7-34.0The [facility] HospitalComment on above:Performed By: #### CBC #### [facility] [address] [place] [address] Dr. Manda Cardoso (RBC) [Mass/Vol]31.8 g/iUAvtdns18.9-35.2The [facility] HospitalComment on above:Performed By: #### CBC #### [facility] [address] [place] [address] Dr. Manda Cardoso (RBC) [Entitic vol]87.6 tRKnxeri80.0-99.0The [facility] HospitalComment on above:Performed By: #### CBC #### [facility] [address] [place] [address] Dr. Manda Maciel #0.6 103/ulNormal0.3-0.8The [facility] HospitalComment on above:Performed By: #### CBC #### [facility] [address] [place] [address] Dr. Manda Coteocytes/100 WBC (Bld)6.3 %Normal1.7-12.0The [facility] Comment on above:Performed By: #### CBC #### [facility] [address] [place] [address] Dr. Manda Claudio #6.5 103/ulNormal1.4-6.5The [facility] HospitalComment on above:Performed By: #### CBC #### [facility] [address] [place] [address] Dr. Manda Longutrophils/100 WBC (Bld)65.7 %Laatri79.0-75.0The [facility] on above:Performed By: #### CBC #### [facility] [address] [place] [address] Dr. Manda Ferreiralet mean volume (Bld) [Entitic vol]10.1 fLNormal9.5-13.5The [facility] HospitalComment on above:Performed By: #### CBC #### [facility] [address] [place] [address] Dr. Manda YorkPLT304 103/qwQznmgf250-032Nyf [facility] on above: Performed By: #### CBC #### [facility] [address] [place] [address] Dr. Manda YorkRBC4.59 106/ulNormal4.20-5.40The [facility] on above:Performed By: #### CBC #### [facility] [address] [place] [address] Dr. Manda YorkWBC9.9 103/ulNormal4.0-11.0The [facility] on above: Performed By: #### CBC #### [facility] [address] [place] [address] Dr. Manda YorkPROF 14(COMP METB)on 40-23-4154Wvmtypm [Mass/Vol]3.7 g/dLNormal 3.4-5.0The [facility] on above:Performed By: #### CBC #### [facility] [address] [place] [address] Dr. Manda YorkAlbumin/Globulin [Mass ratio]1.0 {ratio}NormalThe [facility] on above:Performed By: #### CBC #### [facility] [address] [place] [address] Dr. Manda YorkALP [Catalytic activity/Vol]65 U/VVqxusw84-483Qle [facility] on above:Performed By: #### CBC #### [facility] [address] [address] [address] Manda GraffT [Catalytic activity/Vol]35 U/TUoxisq10-29Yrj [facility] HospitalComment on above:Performed By: #### CBC #### [facility] [address] [address] [address] Manda YorkAnion gap [Moles/Vol]13.0 mmol/LNormalThe [facility] Comment on above:Performed By: #### CBC #### [facility] [address] [address] [address] Manda YorkAST [Catalytic activity/Vol]12 U/LCritically eer58-04Oxc [facility] HospitalComment on above:Performed By: #### CBC #### [facility] [address] [address] [address] Manda YorkBilirubin [Mass/Vol]0.2 mg/dLNormal0.2-1.0The [facility] Comment on above:Performed By: #### CBC #### [facility] [address] [address] [address] Manda YorkCalcium [Mass/Vol]8.7 mg/dLNormal8.5-10.1[facility] Comment on above:Performed By: #### CBC #### [facility] [address] [place] [address] Dr. Manda YorkChloride [Moles/Vol]104 mmol/UBonhsj44-973Cbw [facility] Comment on above:Performed By: #### CBC #### [facility] [address] [address] [address] Manda YorkCO2 [Moles/Vol]24.9 mmol/BJnmvjr78.0-32.0The [facility] Comment on above:Performed By: #### CBC #### [facility] [address] [place] [address] Dr. Manda YorkCreatinine [Mass/Vol]0.77 mg/dLNormal0.55-1.02The [facility] HospitalComment on above:Performed By: #### CBC #### [facility] [address] [address] [address] Manda NoonanGFR-AF KITTITIAN>=60Normal>=60The [facility] HospitalComment on above:Performed By: #### CBC #### [facility] [address] [address] [address] Manda NoonanGFR-NON AF KITTITIAN>=60Normal>=60The [facility] HospitalComment on above:Performed By: #### CBC #### [facility] [address] [address] [address] Manda YorkGlobulin (S) [Mass/Vol]3.8 g/dLNormalThe [facility] HospitalComment on above:Performed By: #### CBC #### [facility] [address] [place] [address] Dr. Manda YorkGlucose [Mass/Vol]110 mg/dLCritically fmyx35-426Qys [facility] HospitalComment on above:Performed By: #### CBC #### [facility] [address] [address] [address] Manda YorkPotassium [Moles/Vol]3.9 mmol/LNormal3.5-5.1The [facility] Comment on above:Performed By: #### CBC #### [facility] [address] [place] [address] Dr. Manda YorkProtein [Mass/Vol]7.5 g/dLNormal6.4-8.2The [facility] Comment on above:Performed By: #### CBC #### [facility] [address] [place] [address] Dr. Manda YorkSodium [Moles/Vol]138 mmol/FLhgcev784-529BhtSheltering Arms Hospital Comment on above:Performed By: #### CBC #### [facility] [address] [address] [address] Manda YorkUrea nitrogen [Mass/Vol]17.0 mg/dLNormal7.0-18.0The [facility] HospitalComment on above:Performed By: #### CBC #### [facility] [address] [place] [address] Dr. Manda Kiser nitrogen/Creatinine [Mass ratio]22.1 mg/mgNoTuscarawas Hospitalment on above:Performed By: #### CBC #### [facility] [address] [place] [address] Dr. Manda Mckeon RATE WESTERGRENon 33-07-6715BCH RATE45 mm/hrCritically high <=20The [facility] on above:Performed By: #### FT4 #### [facility] [address] [place] [address] Dr. Manda Pickard EIA W/REFLEX 5 BIOMARKERSon [id number] DirectPositive AbnormalNegativeThe [facility] on above:Performed By: #### CBC #### [facility] [address] [place] [address] Dr. Manda Meza-DNA (DS) Ab Qn10 IU/mLCritically high0-9The [facility] on above:Result Comment: Negative <5 Equivocal 5 - 9 Positive >9Performed By: #### CBC #### [facility] [address] [place] [address] Dr. Manda Chowdary Antibodies<0.2Xmfjjr2.0-0.9The [facility] on above:Performed By: #### CBC #### [facility] [address] [place] [address] Dr. Manda Lux BELOW:CommentNoBethesda North Hospital on above: Result Comment: Autoantibody Disease Association Condition Frequency --------- Antinuclear Antibody, SLE, mixed connective Direct (CHRISTIAN-D) tissue diseases --------- dsDNA SLE 40 - 60% --------- Chromatin Drug induced SLE 90% SLE 48 - 97% --------- SSA (Ro) SLE 25 - 35% Sjogren's Syndrome 40 - 70% Lupus 100% --------- SSB (La) SLE 10% Sjogren's Syndrome 30% --------- Sm (anti-Schneider) SLE 15 - 30% --------- PARTS COUNTER ASSOCIATE Mixed Connective Tissue Disease 95% (U1 nRNP, SLE 30 - 50% anti-ribonucleoprotein) Polymyositis and/or Dermatomyositis 20% --------- Scl-70 (antiDNA Scleroderma (diffuse) 20 - 35% topoisomerase) Crest 13% --------- Felicita-1 Polymyositis and/or Dermatomyositis 20 - 40% --------- Centromere B Scleroderma - Crest variant 80%Performed By: #### CBC #### [facility] [address] [place] [address] Dr. Manda Souza'lucinda Anti-SS-A<0.0Lmnlsb9.0-0.9[facility] on above:Performed By: #### CBC #### [facility] [address] [place] [address] Dr. Manda Harmon Anti-SS-B<0.1Rgvxmz4.0-0.9[facility] Hospitalment on above:Performed By: #### CBC #### [facility] [address] [place] [address] Dr. Manda Lloyd Antibodies<0.1Qvmmug6.0-0.9[facility] on above:Performed By: #### CBC #### [facility] [address] [place] [address] Dr. Manda YorkCMV PLASMA PCRon [id number] Quant DNA PCR (Plasma)Negative NormalNegativeCleveland Clinic [facility] on above:Result Comment: No CMV DNA detected. The quantitative range of this assay is 200 to 1 million IU/mL.Performed By: #### CMVPL #### [facility] [address] [place] [address] Dr. Manda Yorklog10 CMV Qn DNA PlUPTCALNoBethesda North Hospital on above:Result Comment: Unable to calculate result since non-numeric result obtained for component test.Performed By: #### CMVPL #### [facility] [address] [place] [address] Dr. Manda NavarreteV AB IGMon 22-56-0604Pxykfixztvugzdt (CMV) Ab, IgM35.5 AU/mL Critically high0.0-29.9The [facility] HospitalComment on above:Result Comment: Negative <30.0 Equivocal 30.0 - 34.9 Positive >34.9 A positive result is generally indicative of acute infection, reactivation or persistent IgM production.Performed By: #### LEANN LAWLERC #### [facility] [address] [place] [address] Dr. Manda NavarreteV AB, IGGon 35-16-9668Ikqdwkmossqauhd (CMV) Ab, IgG6.30 U/mL Critically high0.00-0.59The [facility] HospitalComment on above:Result Comment: Negative <0.60 Equivocal 0.60 - 0.69 Positive >0.69Performed By: #### LEANN LAWLERC #### [facility] [address] [place] [address] Dr. Manda Bruce AUTO DIFFon [id number] #0.1 103/ulNormal0.0-0.1The [facility] HospitalComment on above:Performed By: #### CBC #### [facility] [address] [place] [address] Dr. Manda Stroudsophils/100 WBC (Bld)0.7 %Normal0.2-2.0[facility] Comment on above:Performed By: #### CBC #### [facility] [address] [place] [address] Dr. Manda Shafer #0.2 103/ulNormal0.0-0.7The [facility] HospitalComment on above: Performed By: #### CBC #### [facility] [address] [place] [address] Dr. Manda Noonanosinophils/100 WBC (Bld)2.0 %Normal0.9-7.0The [facility] Comment on above:Performed By: #### CBC #### [facility] [address] [place] [address] Dr. Manda Noonanrythrocyte distribution width (RBC) [Ratio]14.4 %Yevxav78.0-15.0 The [facility] HospitalComment on above:Performed By: #### CBC #### [facility] [address] [place] [address] Dr. Manda YorkHematocrit (Bld) [Volume fraction]37.2 %Vlputa72.0-48.0The [facility] HospitalComment on above:Performed By: #### CBC #### [facility] [address] [place] [address] Dr. Manda YorkHemoglobin (Bld) [Mass/Vol]12.3 g/sQJormjr90.0-16.0The [facility] HospitalComment on above:Performed By: #### CBC #### [facility] [address] [place] [address] Dr. Manda Calderon #0.02 10e3/ulNormal0.00-0.03The [facility] HospitalComment on above:Performed By: #### CBC #### [facility] [address] [place] [address] Dr. Manda Calderon %0.2 %Normal0.0-0.5The [facility] HospitalComment on above: Performed By: #### CBC #### [facility] [address] [place] [address] Dr. Manda Laguna #2.1 103/ulNormal1.2-3.8The [facility] HospitalComment on above:Performed By: #### CBC #### [facility] [address] [place] [address] Dr. Manda Bolañosmphocytes/100 WBC (Bld)26.4 %Xigwnz22.5-60.0The [facility] HospitalComment on above:Performed By: #### CBC #### [facility] [address] [place] [address] Dr. Manda Dela CruzUAL DIFF REQNONormalThe [facility] HospitalComment on above: Performed By: #### CBC #### [facility] [address] [place] [address] Dr. Yilan ChangMCH (RBC) [Entitic mass]29.2 ixXzhuir04.7-34.0The [facility] HospitalComment on above:Performed By: #### CBC #### [facility] [address] [place] [address] Dr. Manda Cardoso (RBC) [Mass/Vol]33.1 g/qODbgqkv27.9-35.2The [facility] HospitalComment on above:Performed By: #### CBC #### [facility] [address] [place] [address] Dr. Manda Cardoso (RBC) [Entitic vol]88.4 zZOywrxh48.0-99.0The [facility] HospitalComment on above:Performed By: #### CBC #### [facility] [address] [place] [address] Dr. Manda Maciel #0.5 103/ulNormal0.3-0.8The [facility] HospitalComment on above:Performed By: #### CBC #### [facility] [address] [place] [address] Dr. Manda Coteocytes/100 WBC (Bld)6.7 %Normal1.7-12.0The [facility] Comment on above:Performed By: #### CBC #### [facility] [address] [place] [address] Dr. Manda Claudio #5.2 103/ulNormal1.4-6.5The [facility] HospitalComment on above:Performed By: #### CBC #### [facility] [address] [place] [address] Dr. Manda Longutrophils/100 WBC (Bld)64.0 %Wksavg16.0-75.0The [facility] HospitalComment on above:Performed By: #### CBC #### [facility] [address] [place] [address] Dr. Manda Ferreiralet mean volume (Bld) [Entitic vol]10.5 fLNormal9.5-13.5The [facility] HospitalComment on above:Performed By: #### CBC #### [facility] [address] [address] [address] Manda YorkPLT265 103/vwOyqbkl796-551Vsw [facility] HospitalComment on above: Performed By: #### CBC #### [facility] [address] [address] [address] Manda YorkRBC4.21 106/ulNormal4.20-5.40The [facility] HospitalComment on above:Performed By: #### CBC #### [facility] [address] [address] [address] Manda YorkWBC8.1 103/ulNormal4.0-11.0The [facility] HospitalComment on above: Performed By: #### CBC #### [facility] [address] [place] [address] Dr. Manda Lopez 18-07-1448KXS [Mass/Vol]mg/LNormal<=1.0The [facility] HospitalComment on above:Performed By: #### FT4 #### [facility] [address] [place] [address] Dr. Manda Mckeon RATE WESTERGRENon 79-24-0047RUX RATE34 mm/hrCritically high <=20The [facility] HospitalComment on above:Performed By: #### CBC #### [facility] [address] [place] [address] Dr. Manda YorkCHLORIDE (POC)Ordered By: Jonas Black on 74-73-8658Mdlktenh [Moles/Vol]106 mmol/L98 - 107 mmol/LMercy Health Work Phone: catheterization and angiography procedure details panelOrdered By: Jonas Black on 55-85-2555Chqgsxm Diagnostic Report Demographics Patient TERA Torres Date of Study 10/07/2020 Name Dateof 1980 Gender Female Age 40 year(s) Race Room [id number]^LEYDI^JONAS Height: 67 inch, 170.18 cm Number Corporate [id number] Weight: 234 pounds, 106.1 kg ID # Patient [id number] BSA:2.16 m^2 BMI: 36.65 kg/m^2 Acct # MR # [id number] Performing Jonas Black Physician Referring # Physician [...] factors - Abnormal nuclear perfusion test Conclusions ProcedureSummary Normal coronary arteries Normal LV function Recommendations [...] Right coronary angiography. Contrast Material: - Isovue 63549 ml Fluoroscopy Time: Diagnostic: 2:12 minutes. Total: 2:12 minutes. Medical History Allergies - Bactrim. Risk Factors The patient risk factors include:obesity, treated hypercholesterolemia, treated hypertension, diet- treated diabetes mellitus, chronic lung disease, last creatinine: 0.6 mg/dl, creatinine clearance: 208.84 ml/min, dyslipidemia and Current - Every day tobacco use. Admission Data Admission Date: 10/07/2020 Admission Status: Outpatient. 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 Hemodynamics Condition: Baseline Room Air Estimated: 246.52Heart Rate: 103 bpm Pressure +-- ---+ + !Site !Pressure ! +-----+- + !AO !106/68 (86) ! +-----+----- + !AO !104/71 (87) ! +-----+--------- + !AO !112/66 (86) ! +-----+ + !LV !126/0 ,1 ! +-----+ + !LV !126/0 ,5 ! +-----+ + Valve Gradients and Areas + +---------+------- --+---------+ +---------+ + !Valve !Peak !Mean !Area !Index !Flow !Source ! +---- -------+---------+---------+---------+ +---------+ + !Aortic (more content not included)...[employer] Work Phone: [facility]ifer [facility] Incoming Cardio Results From [facility]/ - 10/07/2020 10:37 AM EDT Cardiac Diagnostic Report Demographics Patient TERA Torres Date of Study 10/07/2020 Name Date of 1980 Gender Female Age 40 year(s) Race Room [id number]^LEYDI^CRISSR Height: 67 inch, 170.18 cm Number Corporate [id number] Weight: 234 pounds, 106.1 kg ID # Patient [id number] BSA: 2.16 m^2 BMI: 36.65 kg/m^2 Acct # MR # [id number] Performing Jonas Black Physician Referring # Physician [...] Right coronary angiography. Contrast Material: - Isovue 63092 ml Fluoroscopy Time: Diagnostic: 2:12 minutes. Total: [...] assessed as CCS II according to the Mauritian clinical classification. Hemodynamics Condition: Baseline Room Air Estimated: 246.52Heart Rate: 103 bpm Pressure +-----+ + !Site !Pressure ! +-----+ + !AO !106/68 (86) ! +-----+ + !AO !104/71 (87) ! +-----+ + !AO !112/66 (86) ! +-----+ + !LV !126/0 ,1 ! +-----+ + !LV !126/0 ,5 ! +-----+ + Valve Gradients and Areas + +---------+---------+---------+ +---------+ + !Valve !Peak !Mean !Area !Index !Flow !Source ! + +---------+---------+---------+ +---------+ + !Aortic !16 !12 ! ! ! ! ! + +---------+---------+---------+ +---------+ + !Aortic !16 !12 ! ! ! ! ! + +---------+---------+---------+ +---------+ + Shunts Oxygen Values O2 Mxpmpbwx528.4O2 Qfgszirhswy031.52 [employer] Phone: [employer] Phone: [employer] Phone: creatinine W/GFR Point of CareOrdered By: Jonas Black on 40-88-6351Zvrnqdxelw [Mass/Vol]0.64 mg/dL0.51 - 1.19 mg/dLWide [employer] Phone: GFR Non->60>60 mL/minWide [employer] Phone: GFR/1.73 sq M.predicted MDRD (S/P/Bld) [Vol rate/Area] mL/min/{1.73_m2}>60 mL/minW[employer] Phone: GFR/1.73 sq M.predicted MDRD (S/P/Bld) [Vol rate/Area] [employer] Phone: comment on above:Average GFR for 40-49 years old: 99 mL/min/1.73sq m Chronic Kidney Disease: <60 mL/min/1.73sq m Kidney failure: <15 mL/min/1.73sq m eGFR calculated using average adult body mass. Additional eGFR calculator available at: http://www.[employer]/multiple_crcl_2012.htm Hemoglobin and hematocrit, bloodOrdered By: Jonas Black on 91-19-4526Joslxgdncw (Bld) [Volume fraction]41 %36 - 46 %[employer] Phone: Hemoglobin (Bld) [Mass/Vol]14.0 g/dL12.0 - 16.0 g/dL [employer] Phone: No Panel InformationOrdered By: Jonas Black on 53-09-5773HvkjjWide [employer] Phone: pOCT GlucoseOrdered By: Jonas Black on 10-07-2020 Glucose [Mass/Vol]98 mg/dL74 - 100 mg/dLCleveland Clinic [facility]ron General Lodi Hospitalhyaqu Phone: pOCT urine pregnancyOrdered By: Jonas Black on 52-56-7867Hphc HCG ( test) Ql (U)NegativeNEGATIVEW[employer] Phone: comment on above:Specimens with hCG levels near the threshold of the test (25 mIU/mL) may give a negative or indeterminate result. In such cases, another test should be performed with a new specimen in 48-72 hours. If early is suspected clinically in this setting, correlation with quantitative serum b-hCG level is suggested. [employer] Phone: pOTASSIUM (POC)Ordered By: Jonas Black on 10-07-2020 Potassium [Moles/Vol]3.8 mmol/L3.5 - 4.5 mmol/LMcoshocton regional medical centery Clipsure Phone: platelet Counton 25-57-4067Fgnhbnprk (Bld) [#/Vol]299 10*3/gGNspanq359-255PusglTrinity Health System Twin City Medical CenterComment on above:Performed By: #### PLT #### [facility] [address] [place] [address] Front Office Help: Ana Rosa Christine countOrdered By: Jonas Black on 53-85-7816Gshpvqicf (Bld) [#/Vol]299 10*3/uLMercy Health Work Phone: [facility] Work Phone: sODIUM (POC)Ordered By: Jonas Black on 10-07-2020 Sodium [Moles/Vol]141 mmol/L138 - 146 mmol/LMercy Health Work Phone: coding Summary.on [id number] Summary.CODING DATE: 01/12/2019 FINAL [facility] STATUS: Home (Routine DC) PAYOR: [...] mass index (BMI) 34.0-34.9, adult Z79.899 Other rn long term care (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 However, the narrative phrase printed from the coding software may appear abbreviated, or result in slightly different terminology. Coded By: Luz Judd Date Saved: 01/12/2019 10:25 [facility] Center[facility]. CODING DATE: 01/12/2019 FINAL [facility] STATUS: Home (Routine DC) PAYOR: [...] Luz Judd Revised Date Saved: 01/12/2019 10:25 [facility]XR Chest 2 Viewson [id number] Chest 2 ViewsExam Date/Time: 01/11/2019 18:05 EDT Reason for Exam: [...] Micheal Valenzuela M.D. Transcribed by: BILL Technologist: DeannCincinnati Shriners HospitalAuto Diffon [id number]/100 WBC (Bld)0.8 %Normal0.0-2.0[facility] Comment on above:Order Comment: Order Added by Discern Expert.Performed By: #### [id number], 4415416, 0811294, 2467342, 17544971, 0334767, 8780131, 9502748, 4354222, 64897315, 9851186 #### [facility] [address] [place] [address]44[address]Newlzglfv/Leukocytes Auto (Bld) [Pure # fraction]0.1 E9/LNormal 0.0-0.2[facility] Medical CenterComment on above:Order Comment: Order Added by Discern Expert.Performed By: #### [id number], 7474537, 5161364, 7557008, 74655448, 6311211, 3167563, 7582101, 1251825, 74608263, 2511296 #### [facility] [address] [place] [address] 05599Wmusbfstjjn/100 WBC (Bld)1.9 %Normal0.0-8.0[facility] Shriners HospitalComment on above:Order Comment: Order Added by Discern Expert.Performed By: #### 75342480, 2294725, 7158083, 1116633, 28384201, 9440016, 8032776, 5607880, 2695838, 28641742, 2139045 #### [facility] [address] [place] [address] 95[address]Cvlmvwxsgvg/Leukocytes Auto (Bld) [Pure # fraction]0.1 E9/L Normal0.0-0.5FMcKitrick HospitalComment on above:Order Comment: Order Added by Discern Expert.Performed By: #### 78393163, 3621075, 8351791, 0726756, 18649788, 9236842, 9258522, 2743197, 5154108, 47064822, 0454835 #### [facility] [address] [place] [address] 22421Yaackggqcew/100 WBC (Bld)28.0 %Tyewkf60.0-50.0[facility] Shriners HospitalComment on above:Order Comment: Order Added by Discern Expert. Performed By: #### 10872120, 7277761, 1956238, 6680764, 13487476, 5226079, 4627130, 5608625, 8987285, 47278398, 7033940 #### [facility] [address] [place] [address] 48468Pjemmwmzjyp/Leukocytes Auto (Bld) [Pure # fraction]2.2 E9/L Normal1.0-4.0[facility]riners HospitalComment on above:Order Comment: Order Added by Discern Expert.Performed By: #### 69558750, 0360593, 7200337, 5647901, 51870524, 4625569, 5803458, 0595976, 0908810, 35077169, 5935568 #### [facility] [address] [place], [place] [address]Twsznujqz/100 WBC (Bld)7.0 %Normal4.0-14.0[facility] Shriners HospitalComment on above:Order Comment: Order Added by Discern Expert.Performed By: #### 85489656, 6338774, 1718218, 5917168, 29477743, 1379753, 7757614, 7795705, 7616981, 78147040, 3115563 #### [facility] [address] [place], [place] [address]Vvfeoeevn/Leukocytes Auto (Bld) [Pure # fraction]0.6 E9/LNormal 0.2-1.0[facility]riners HospitalComment on above:Order Comment: Order Added by Discern Expert.Performed By: #### 57293031, 6284638, 1171697, 1606482, 56759439, 1295905, 5812322, 1794964, 4229442, 23789405, 8120002 #### [facility] [address] [place] [address]Kyzyfljockj/100 WBC (Bld)62.3 %Ggnddd78.0-75.0[facility]riners HospitalComment on above:Order Comment: Order Added by Discern Expert. Performed By: #### 02102414, 1273039, 7334328, 1010060, 15575637, 3379371, 7594981, 5060433, 7174660, 88721156, 8685914 #### [facility] [address] [place] [address] 16476Vcgftnnsnok/Leukocytes Auto (Bld) [Pure # fraction]4.9 E9/L Normal2.0-7.5FMcKitrick HospitalComment on above:Order Comment: Order Added by Discern Expert.Performed By: #### 72460868, 6612406, 9771785, 0153736, 08496434, 1887006, 2316731, 3603674, 6609207, 49183257, 0452632 #### [facility] [address] [place], [place] [address]QZAei 36-47-9769Qbovszgcae [Mass/Vol]0.7 mg/dLNormal0.5-1.3 [facility]ers HospitalComment on above:Performed By: #### 35853763, 8435676, 4225089, 2077149, 76908581, 2735734, 2380438, 1985354, 7481694, 89997518, 0294570 #### [facility] [address] [place], [place] [address]Hpxw nitrogen [Mass/Vol]11 mg/dLNormal5-21[facility]riners HospitalComment on above:Performed By: #### 05277380, 1550367, 3599324, 1442200, 14272397, 0182914, 3281743, 7838317, 7457352, 10418851, 4123278 #### [facility] [address] [place], [place] [address]Wjnv nitrogen/Creatinine [Mass ratio]16 No VwwdaJqvyvt21-71 [facility]ers HospitalComment on above:Performed By: #### 67779517, 3825404, 2166679, 1660436, 37249196, 8696785, 2832278, 6682614, 5753908, 47501803, 2618407 #### [facility] [address] [place], [place] [address]Mvxsh gap [Moles/Vol]14 mmol/LNormal6-16[facility]ers HospitalComment on above:Performed By: #### 57494715, 4742595, 3634017, 1952087, 94164206, 3348641, 7647028, 1328805, 1473447, 44000054, 9387238 #### [facility] [address] [place], [place] [address]Fytuxoj [Mass/Vol]8.9 mg/dLNormal8.9-11.1FMcKitrick HospitalComment on above:Performed By: #### 53403673, 6266785, 9437219, 2458361, 52433741, 4920273, 7492436, 6028187, 9631161, 49814456, 8466834 #### [facility] [address] [place], [place] [address]Qachkdlg [Moles/Vol]107 mmol/FWlsnbl011-849FyklidCincinnati Shriners HospitalComment on above:Performed By: #### 70375677, 8913374, 2067821, 4875133, 54618155, 5742042, 1641118, 7422083, 6311194, 77027962, 0461217 #### [facility] [address] [place], [place] [address]LU1 [Moles/Vol]22 mmol/DUkbsvo60-48EeeulcCincinnati Shriners Hospital Comment on above:Performed By: #### 67064083, 7129704, 3984519, 0648823, 72667072, 2938988, 1495354, 1789430, 4434406, 40385076, 1449192 #### [facility] [address] [place], [place] [address]Ambregq [Mass/Vol]122 mg/rZVjjsmd46-494TkvjlhCincinnati Shriners HospitalComment on above:Result Comment: If this glucose result represents a fasting glucose, interpretation should refer tothe following reference range: 55-99 mg/dLPerformed By: #### 29974381, 0044908, 5724914, 9944440, 96624783, 3340464, 6781168, 1147865, 5067070, 53414437, 1747442 #### [facility] [address] [place], [place] [address]Labmpjmyi [Moles/Vol]3.8 mmol/LNormal3.5-5.3FMcKitrick HospitalComment on above:Performed By: #### 18715932, 5947614, 7050523, 9486334, 36560440, 2250705, 1338186, 7697637, 9246579, 46399615, 0633337 #### [facility] [address] [place], [place] [address]Tydgeg [Moles/Vol]139 mmol/OEvkxbl801-157XwixsvCincinnati Shriners HospitalComment on above:Performed By: #### 51005390, 2140440, 9548166, 4458078, 84716585, 2473477, 8107238, 7337345, 9777546, 30528526, 8088153 #### [facility] [address] [place], [place] [address]JLD w/ Auto Diffon 03-47-3595Ufrkvlfecvz distribution width (RBC) [Ratio]14.0 %Xyfggj71.9-14.2FMcKitrick HospitalComment on above: Performed By: #### 91664067, 4947697, 3011414, 9451538, 43162684, 6902522, 1242748, 9706477, 7268001, 41775646, 7192444 #### [facility] [address] [place], [place] [address]Gbhcidsjsl (Bld) [Volume fraction]39.9 %Xtfxrp69.0-46.0[facility]riners HospitalComment on above:Performed By: #### 14535988, 6532481, 0447939, 4554889, 30258473, 8562820, 0223752, 6880763, 5144566, 19598676, 8828968 #### [facility] [address] [place], [place] [address]Admpduxmwo (Bld) [Mass/Vol]13.5 g/tZCvlcwm51.0-16.0[facility]ers HospitalComment on above:Performed By: #### 16421865, 8496454, 5455218, 2606889, 87386091, 9146698, 1769749, 9854181, 8695863, 36138885, 1801555 #### [facility] [address] [place], [place] [address]LWP (RBC) [Entitic mass]29.4 hlWkqinr13.0-34.0[facility]ers HospitalComment on above:Performed By: #### 88309038, 0145687, 6432232, 7483424, 04949454, 1685340, 5814149, 3604021, 7423920, 88899708, 8191423 #### [facility] [address] [place], [place] [address]OVZJ (RBC) [Mass/Vol]33.7 g/wMUkhwhf58.3-35.7FMcKitrick HospitalComment on above:Performed By: #### 08893042, 6000426, 6491723, 2189129, 81378994, 3805577, 5931641, 6622178, 5157830, 35740659, 8188731 #### [facility] [address] [place], [place] [address]SCM (RBC) [Entitic vol]87.4 rGMhpanx23.0-100.0[facility]ers HospitalComment on above:Performed By: #### 09490764, 9953753, 6942005, 4530129, 94525465, 5657795, 4850797, 9118615, 5170601, 12498214, 5389212 #### [facility] [address] [place], [place] [address]Oxwootsq mean volume (Bld) [Entitic vol]8.5 fLNormal6.4-10.8 [facility] HospitalComment on above:Performed By: #### 15079952, 6779874, 8635648, 0339712, 05695291, 7318884, 5327191, 9779855, 7908817, 61253717, 5497504 #### [facility] [address] [place], [place] [address]Vlsqvcebe (Bld) [#/Vol]244.0 E9/JAesawb000.0-500.0[facility]ers HospitalComment on above:Performed By: #### 25563517, 4488133, 1623211, 6025981, 03693023, 9683042, 8758355, 5227955, 0257539, 61211489, 3451137 #### [facility] [address] [place], [place] [address]QVW (Bld) [#/Vol]4.6 E12/LNormal4.3-5.9[facility]ers HospitalComment on above:Performed By: #### 14309177, 5859808, 0480774, 0646691, 08196141, 8874401, 8525095, 1116701, 1094452, 64900516, 9030470 #### [facility] [address] [place], [place] [address]RIZ corrected for nucl RBC Auto (Bld) [#/Vol]7.9 E9/LNormal 4.0-11.0[facility]ers HospitalComment on above:Performed By: #### 25173874, 8199613, 4690323, 2853338, 93853799, 0977788, 6969304, 3632311, 5437068, 31685181, 2799719 #### [facility] [address] [place], [place] [address]C-Pzfuqtm 83-51-7008Pwdxyg D-dimer FEU (PPP) [Mass/Vol]265 ng/wHRdkqah942-736GkyeqnCincinnati Shriners HospitalComment on above:Result Comment: This D-Dimer assay may be used [...] infections, pneumonia, severe skin infections Liver cirrhosis PregnancyPerformed By: #### 90793767, 4719833, 5728728, 7175321, 72833623, 6009974, 9046265, 6850661, 0982761, 88452391, 2993462 #### [facility] [address] [place], [place] [address]OH Clinical Summaryon [id number] Clinical Summary [address] [address] ED Clinical Summary Person Information Name: ARIADNA HALEY [place] Age: 38 Years : 1980 12:00 AM Sex: Female Language: New Zealander PCP: Charles Nicole DO Marital Status: Single Phone: [phone] Visit Id: Visit Reason: Chest pain; CHEST [...] 6:42 PM 01/11/2019 6:42 PM ADDRESS: [address] [place] [phone] PHYS DOC NOTES: MEDICAL INFORMATION: Prescriptions Given: PATIENT EDUCATION INFORMATION: Instructions: Smoking Cessation; Chest Pain (Nonspecific) Follow up: With: Address: [facility]: [place] [id number] Business (1) Within 2 to 3 days Comments: Return to ED if symptoms worsen DIAGNOSIS: 1:Chest painNormalFisher Atul Medical CenterED Note-Physicianon [id number] Note-PhysicianBasic Information Time Seen: Orin Browne DO 01/11/2019 [...] No shortness of breath or palpitations. She hashad pleurisy in the past. Pt has been taking Phentermine and Topamax for two months for weight lossand is worried that she may have something [...] Follow-up With When Contact Information [facility] Within 2 to 3 days [address] [place] [address]- Business (1) Additional Instructions: Return to ED [...] Lymph Auto: 28 % (01/11/19 16:46:00 EDT) [place] Auto: 7 % (01/11/19 16:46:00 EDT) Eos Auto: 1.9 % (01/11/19 16:46:00 EDT) Basophil Auto: 0.8 % (01/11/19 16:46:00 EDT) Neutro Absolute: 4.9 E9/L (01/11/19 16:46:00 EDT) Lymph Absolute: 2.2 E9/L (01/11/19 16:46:00 EDT) [place] Absolute: 0.6 E9/L (01/11/19 16:46:00 EDT) Eos [...] ECG Signed By: Orin Browne DO 01/11/2019 15:54:18[facility] Comment on above:Result Comment: Electronically Signed By: Orin Browne DO\.br\Date and Time Signed: 01/11/19 18:36 EDTED Patient Education Noteon [id number] Patient Education NoteFamily Medicine Smoking Cessation Quitting smoking is important [...] all cigarettes, ashtrays, matches, and lighters in yourhome, car, or work. Do not let people [...] a walk, or occupy your time with atask. ? Change your normal routine. Take a [...] to your body without the negative effects andrisks of smoking. Nicotine replacement therapy includes nicotine gum, lozenges, inhalers, nasal sprays, and skin patches. Some may be available ztfs-dxh-jazflyb and others require a prescription. ? Antidepressant [...] or have difficulty concentrating. The withdrawal symptoms areonly temporary. They are strongest when you first [...] Document Reviewed: 08/18/2012 ExitCare? Patient Information ?2014 Compliance 11. This information is not intended to replace advice given to you by your health care provider. Make sure you discuss any questions you have with yourhealth care provider. Return if you have any problems or concerns. Call your regular provider for afollow up appointment. May use Ibuprofen as directed for pain. Chest Pain (Nonspecific) It is often hard to give a specific diagnosis for the cause of chest pain. There is always a chancethat your pain could be related to something serious, such as a heart attack or a blood clot in thelungs. You need to follow up with your health care provider for further evaluation. CAUSES ? Heartburn. ? Pneumonia or bronchitis. ? Anxiety or stress. ? Inflammation around your heart (pericarditis) or lung (pleuritis or pleurisy). ? A blood clot in the lung. ? A collapsed lung (pneumothorax). It can develop suddenly on its own (spontaneous pneumothorax) orfrom trauma to the chest. ? Shingles infection [...] ambulatory electrocardiogram (ECG). An ECG records your heartbeatpatterns over a 24-hour period. You may also have other tests, such as: ? Transthoracic echocardiogram (TTE). During echocardiography, sound waves are used to evaluate howblood flows through your heart. ? Transesophageal echocardiogram (MICHELLE). ? Cardiac monitoring. This allows your health care provider to monitor your heart rate and rhythm in real time. ? Holter monitor. This is a portable device that records your heartbeat and can help diagnose heartarrhythmias. It allows your health care provider to [...] testing if your chest pain does not goaway. ? Keep any follow-up appointments you made. [...] Reviewed: 12/13/2008 ExitCare? Patient Information ?2015 [employer]. This information is not intended to replace advice given to you by your health care provider. Make sure you discuss any questions you have with yourhealth care provider.[facility] Patient Summaryon [id number] Patient Summary [place] [id number] Patient Discharge Instructions Person Information Name: ARIADNA HALEY Age: 38 Years Arrival Date: 01/11/2019 3:44 PM Discharge Diagnosis: 1:Chest pain Primary Care Physician: Charles Nicole DO Provider Information Primary Provider: Orin Browne DO Advanced Forging Engineer:None The exam and treatment you received in the Emergency Department were for an urgent problem and are not intended as complete care. It is important that you follow up with a doctor, nurse practitioner,or physician?s development assistant for ongoing care. If your symptoms [...] Follow-up Instructions: With: Address: When: Charles Nicole [address] [place] [address] Business (1) Within 2 to 3 days [...] opioids can be used to help relieve kyfofzhi-wu-ynbpmz pain and are often prescribed following a [...] and have fewer risks and side effects. Optionsmay include: ? Pain relievers such as acetaminophen, [...] unused prescription opioids: Find your community drug take- back program or Advise Only mail-back program, or flush them down the toilet, following guidance from the Food and Drug Administration (www.fda.gov/Drugs/ResourcesForYou). ? Visit www.cdc.gov/drugoverdose to learn about the risks of opioids abuse and overdose. ? If you believe you may be struggling with addiction, tell your health rn long term care and ask for guidance or call SAMHSA?S National Helpline at 1-149-212-WMUA. v Source: US Department of Health and Human Services/Center for Disease Control & Prevention [facility] Medications Given: Medication Dose Route No medications found. Medication Information: Medications to Continue with No Changes Other Medications metformin (metformin 500 mg ER Tab) 250 Milligram By Mouth 2 times a day. Comment: Pharmacy Information: Thank you for choosing [facility] Patient Education Materials: Smoking Cessation [...] all cigarettes, ashtrays, matches, and lighters in yourhome, car, or work. Do not let people [...] a walk, or occupy your time with atask. ? Change your normal routine. Take a [...] to your body without the negative effects andrisks of smoking. Nicotine replacement therapy includes nicotine gum, lozenges, inhalers, nasal sprays, and skin patches. Some may be available exdr-vsi-lxeweiq and others require a prescription. ? Antidepressant [...] or have difficulty concentrating. The withdrawal symptoms areonly temporary. They are strongest when you first [...] Document Reviewed: 08/18/2012 ExitCare? Patient Information ?2014 Compliance 11. This information is not intended to replace advice given to you by your health care provider. Make sure you discuss any questions you have with yourhealth care provider. Return if you have any problems or concerns. Call your regular provider for a follow up appointment. May use Ibuprofen as directed for pain. Chest Pain (Nonspecific) It is often hard to give a specific diagnosis for the cause of chest pain. There is always a chancethat your pain could be related to something serious, such as a heart attack or a blood clot in thelungs. You need to follow up with your health care provider for further evaluation. CAUSES ? Heartburn. ? Pneumonia or bronchitis. ? Anxiety or stress. ? Inflammation around your heart (pericarditis) or lung (pleuritis or pleurisy). ? A blood clot in the lung. ? A collapsed lung (pneumothorax). It can develop suddenly on its own (spontaneous pneumothorax) orfrom trauma to the chest. ? Shingles infection [...] ambulatory electrocardiogram (ECG). An ECG records your heartbeatpatterns over a 24-hour period. You may also have other tests, such as: ? Transthoracic echocardiogram (TTE). During echocardiography, sound waves are used to evaluate howblood flows through your heart. ? Transesophageal echocardiogram (MICHELLE). ? Cardiac monitoring. This allows your health care provider to monitor your heart rate and rhythm in real time. ? Holter monitor. This is a portable device that records your heartbeat and can help diagnose heartarrhythmias. It allows your health care provider to [...] testing if your chest pain does not goaway. ? Keep any follow-up appointments you made. [...] Document Reviewed: 12/13/2008 ExitCare? Patient Information ?2015 Compliance 11. This information is not intended to replace advice given to you by your health care provider. Make sure you discuss any questions you have with yourhealth care provider. ITERA NICOLE B , have received the following patient education materials/instructions and have verbalized understanding: Patient Education Materials: Smoking Cessation; Chest Pain (Nonspecific) Follow-up Instructions: With: Address: When: [address] [place] [address] Business (1) Within 2 to 3 days Comments: Return to ED if symptoms worsen Prescriptions: Patient Signature Date Clinician/Nurse Signature Date 01/11/19 18:42:28NormalCincinnati Shriners HospitalProgress Note-Nurseon [id number] Note-NursePt explained discharge instructions and voiced understanding. Pt sts she will follow up with her PCP and denies any furthe questions at this time.NormalCincinnati Shriners HospitalTroponin 0 Hr.on 29-51-4994Nkfwmgqz I.cardiac [Mass/Vol]ng/mLNormal<=0.03C[facility] Shriners HospitalComment on above:Result Comment: New Troponin Assay 10/05/13 KRISHNA [place] Cutoff value > or = 0.03 ng/mL in conjunction with clinical conditions of myocardial infarction. (www.escardio.org/guidelines)Performed By: #### [id number], 8675756, 8905172, 6393421, 31927353, 9272005, 1853283, 7273213, 9187580, 64992206, 3700023 #### [facility] [address] [place], [place] [address]gKDOfj 00-17-7051KVW/1.73 sq M predicted among blacks MDRD (S/P/Bld) [Vol rate/Area]mL/min/{1.73_m2}Normal>=59[facility] Comment on above:Order Comment: Order added by Discern Expert.Result Comment: eGFR is race adjusted. AA=.Performed By: #### [id number], 7490716, 1622366, 0781590, 31349783, 9619596, 8602571, 4433887, 4638034, 12678791, 5012706 #### [facility] [address], [place] [address]OLB/1.73 sq M predicted among non-blacks MDRD (S/P/Bld) [Vol rate/Area]mL/min/{1.73_m2}Normal>=59[facility]riners HospitalComment on above: Order Comment: Order added by Discern Expert.Result Comment: Chronic kidney disease could be indicated at eGFR's of less than 60 mL/min/1.73m2. Kidney failure is indicated at less than 15 mL/min/1.73m2.Performed By: #### 85386916, 0944663, 6688250, 3015519, 59234072, 7732066, 0169173, 7614895, 2293696, 18869152, 5578955 #### [facility] [address], [place] [address]BNBEP, LUMBOSACRAL CMPLT(BENDING)on [id number], LUMBOSACRAL CMPLT(BENDING) Patient Name: ARIADNA HALEY STUDY: SPINE, LUMBOSACRAL; CMPLT(BENDING); 12/05/2018 1:47 pm INDICATION: LUMBAR XR. COMPARISON: None. ACCESSION NUMBER(S): [id number] ORDERING CLINICIAN: KADE EARLY FINDINGS: No lumbar spine fracture. Scattered small endplate osteophytes. Vertebral body and disc space heights are are maintained. 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 No spondylolisthesis. No instability on flexion or extension. IMPRESSION: Degenerative changes of the lumbar spine without instability. Electronically signed by: EARNESTINE MANUEL [facility]Le[facility] [address] Coding Summary.on [id number] Summary.CODING DATE: 09/15/2018 FINAL [facility] DSC STATUS: Home (Routine DC) PAYOR: [...] By: Luz Judd Date Saved: 09/15/2018 07:15 amNormalCincinnati Shriners HospitalAuto Diffon [id number]/100 WBC (Bld)0.6 %Normal0.0-2.0[facility] Comment on above:Order Comment: Order Added by Discern Expert.Performed By: #### 46958708, 6217143, 5586798, 4080717, 36169101, 7577024, 6686342, 7768863, 7291395, 79157521, 8442292 #### [facility] [address], [place] [address]Dfwpzhlcu/Leukocytes Auto (Bld) [Pure # fraction]0.1 E9/LNormal 0.0-0.2FMcKitrick HospitalComment on above:Order Comment: Order Added by Discern Expert.Performed By: #### 71935823, 0164634, 3071436, 4453629, 84006959, 2846362, 4069816, 8032700, 4077206, 88171977, 5861322 #### [facility] [address], [place] [address]Svlpgpozcrf/100 WBC (Bld)2.2 %Normal0.0-8.0[facility]riners HospitalComment on above:Order Comment: Order Added by Discern Expert.Performed By: #### 47267994, 2582626, 2961593, 5056024, 15720730, 8376478, 9798528, 2696776, 4854245, 16992054, 1879282 #### [facility] [address] [place] [address]Cpqudwnrzov/Leukocytes Auto (Bld) [Pure # fraction]0.2 E9/L Normal0.0-0.5FMcKitrick HospitalComment on above:Order Comment: Order Added by Discern Expert.Performed By: #### 65714559, 1815300, 2120823, 3144850, 77621605, 6726731, 4122514, 3823463, 8114818, 09232380, 4303063 #### [facility] [address] [place] [address]Ftozmtczydq/100 WBC (Bld)30.6 %Xribvr54.0-50.0[facility]riners HospitalComment on above:Order Comment: Order Added by Discern Expert. Performed By: #### 66152495, 2082547, 1451431, 1854215, 75511438, 3232988, 1795321, 2922398, 0440280, 85399283, 5751166 #### [facility] [address] [place] [address]Unraelnpcwe/Leukocytes Auto (Bld) [Pure # fraction]3.0 E9/L Normal1.0-4.0[facility]riners HospitalComment on above:Order Comment: Order Added by Discern Expert.Performed By: #### 78591659, 0675994, 0421751, 8771682, 64344516, 0575533, 8260938, 7175774, 4322521, 65356763, 0668920 #### [facility] [address], [place] [address]Ezljekxzu/100 WBC (Bld)7.2 %Normal4.0-14.0[facility]riners HospitalComment on above:Order Comment: Order Added by Discern Expert.Performed By: #### 78937813, 9644581, 6714529, 0094627, 14397806, 9241610, 4036120, 9543933, 7470755, 20558671, 2964521 #### [facility] [address], [place] [address]Lddmiwvkx/Leukocytes Auto (Bld) [Pure # fraction]0.7 E9/LNormal 0.2-1.0[facility]riners HospitalComment on above:Order Comment: Order Added by Discern Expert.Performed By: #### 29383524, 8262434, 0586077, 2440518, 53066503, 9952583, 1368424, 1425684, 6019379, 26402460, 7135695 #### [facility] [address], [place] [address]Kzwzkampaae/100 WBC (Bld)59.4 %Daihfj45.0-75.0[facility]riners HospitalComment on above:Order Comment: Order Added by Discern Expert. Performed By: #### 84915640, 5303167, 7831860, 5834159, 35288286, 3238958, 1785628, 7748038, 8881482, 08737885, 2741320 #### [facility] [address], [place] [address]Nqfocyqwade/Leukocytes Auto (Bld) [Pure # fraction]5.9 E9/L Normal2.0-7.5FMcKitrick HospitalComment on above:Order Comment: Order Added by Discern Expert.Performed By: #### 51087637, 6308787, 9928151, 4085722, 37062168, 6775221, 7236588, 4311454, 1717580, 73555254, 4221836 #### [facility] [address], [place] [address]BAGdq 54-93-3242Brgyfkawrt [Mass/Vol]0.6 mg/dLNormal0.5-1.3 [facility]ers HospitalComment on above:Performed By: #### 47235198, 2038882, 9548045, 7808866, 52668051, 4444418, 7639780, 6774926, 5947423, 54259500, 1149918 #### [facility] [address], [place] [address]Zvsf nitrogen [Mass/Vol]15 mg/dLNormal5-21[facility]ers HospitalComment on above:Performed By: #### 53149096, 9911557, 6148033, 3520424, 92625008, 0068018, 6488857, 1408592, 9431598, 57463935, 7557410 #### [facility] [address], [place] [address]Nang nitrogen/Creatinine [Mass ratio]25 No ClkmeFfsw30-57YitynmCincinnati Shriners HospitalComment on above:Performed By: #### 14057611, 3854073, 9016587, 1204724, 60929483, 7483999, 9448783, 0867716, 2671890, 06371706, 4595193 #### [facility] [address], [place] [address]Xqidg gap [Moles/Vol]13 mmol/LNormal6-16[facility]ers HospitalComment on above:Performed By: #### 40374587, 9240193, 4692628, 8064389, 95232255, 2510757, 2243114, 2335230, 8396203, 99398841, 0856750 #### [facility] [address], [place] [address]Zwkunch [Mass/Vol]9.5 mg/dLNormal8.9-11.1FMcKitrick HospitalComment on above:Performed By: #### 91284459, 0955654, 0324190, 1452945, 59343270, 4005803, 1572836, 2817087, 6359012, 90125170, 3843683 #### [facility] [address], [place] [address]Nbuduoev [Moles/Vol]103 mmol/OFuihzv700-866HzldxwCincinnati Shriners HospitalComment on above:Performed By: #### 88138499, 8281806, 2930800, 5414068, 73991964, 5070474, 4420444, 2961736, 4638148, 75311906, 4805166 #### [facility] [address], [place] [address]CW4 [Moles/Vol]24 mmol/PYosasn00-32FjomdzCincinnati Shriners Hospital Comment on above:Performed By: #### 23903857, 0931193, 8905471, 6193691, 83937230, 5509641, 6629051, 3576299, 6462517, 47470740, 9571138 #### [facility] [address], [place] [address]Jtffddq [Mass/Vol]102 mg/iOHdvkne11-105BxnmylCincinnati Shriners HospitalComment on above:Result Comment: If this glucose result represents a fasting glucose, interpretation should refer tothe following reference range: 55-99 mg/dLPerformed By: #### 93547874, 4236923, 1805848, 2248762, 49466440, 5392899, 0269204, 8289240, 7159074, 28431622, 4817843 #### [facility] [address], [place] [address]Usaaprwvj [Moles/Vol]3.6 mmol/LNormal3.5-5.3FMcKitrick HospitalComment on above:Performed By: #### 63801161, 9663203, 2909893, 1131974, 60149879, 4869406, 7908939, 5251592, 9569368, 04552111, 7493111 #### [facility] [address], [place] [address]Nvjwxv [Moles/Vol]136 mmol/DBiadgv733-868HlidleCincinnati Shriners HospitalComment on above:Performed By: #### 82075558, 0922812, 3004946, 2546423, 36684031, 4159559, 4290719, 3845124, 0671695, 33655339, 7555719 #### [facility] [address], [place] [address]PLK w/ Auto Diffon 94-30-7737Dhkzbahnema distribution width (RBC) [Ratio]14.2 %Yyfyxo04.9-14.2FMcKitrick HospitalComment on above: Performed By: #### 34753968, 5395052, 7091296, 6961536, 51627585, 2929740, 0971485, 1334136, 2553759, 07595801, 1930689 #### [facility] [address], [place] [address]Zbqyxzrahb (Bld) [Volume fraction]39.4 %Elxrpq41.0-46.0[facility]ers HospitalComment on above:Performed By: #### 08797285, 3015066, 8521245, 3177869, 83804239, 1606488, 1767941, 8231078, 1725866, 91233312, 8102216 #### [facility] [address], [place] [address]Saihcrzauk (Bld) [Mass/Vol]13.3 g/vKFjgivq28.0-16.0[facility]ers HospitalComment on above:Performed By: #### 70935586, 7849547, 4183534, 5102691, 41654881, 4260245, 3493133, 0551458, 6568011, 68485866, 0214011 #### [facility] [address], [place] [address]ULH (RBC) [Entitic mass]29.2 rrJbttpj97.0-34.0[facility]ers HospitalComment on above:Performed By: #### 50641080, 6469500, 5270081, 1431186, 37213247, 2239727, 3175231, 9517874, 4311095, 80841986, 0413982 #### [facility] [address], [place] [address]XFBK (RBC) [Mass/Vol]33.8 g/fDPrrrug09.3-35.7FMcKitrick HospitalComment on above:Performed By: #### 75515767, 6624662, 5756799, 8301070, 63450947, 6686876, 1814834, 7826854, 0943912, 30657474, 6127080 #### [facility] [address], [place] [address]JJC (RBC) [Entitic vol]86.6 mDJuewmq46.0-100.0[facility]ers HospitalComment on above:Performed By: #### 07484084, 2184511, 9389228, 6941844, 21158602, 7393296, 6410189, 7929494, 2699487, 63955985, 5868430 #### [facility] [address], [place] [address]Czavjwoi mean volume (Bld) [Entitic vol]8.8 fLNormal6.4-10.8 [facility]ers HospitalComment on above:Performed By: #### 36495125, 4104888, 3927982, 1431896, 63907488, 2975428, 2803997, 9362064, 6929894, 23855368, 4668929 #### [facility] [address], [place] [address]Sonpdshxb (Bld) [#/Vol]307.0 E9/LPugaxa589.0-500.0[facility]ers HospitalComment on above:Performed By: #### 80012827, 3716831, 5407608, 5441464, 30052243, 1993889, 3870258, 2161076, 8563885, 77989455, 3296854 #### [facility] [address], [place] [address]XOR (Bld) [#/Vol]4.6 E12/LNormal4.3-5.9[facility] HospitalComment on above:Performed By: #### 77474620, 9952978, 0908985, 8373190, 70420017, 4442353, 1675164, 2180227, 7131870, 75557668, 9410375 #### [facility] [address], [place] [address]DZL corrected for nucl RBC Auto (Bld) [#/Vol]9.9 E9/LNormal 4.0-11.0[facility]ers HospitalComment on above:Performed By: #### 74960013, 6171507, 8318464, 5358309, 70774562, 0490309, 7728546, 0565176, 2543345, 84240218, 1655767 #### [facility] [address] [place] [address]PXpc 76-64-3946BZ [Catalytic activity/Vol]53 Int._Unit/LNormal 14-261[facility]ers HospitalComment on above:Performed By: #### 77844776, 3980750, 8346894, 8142907, 17111450, 9991151, 5345291, 3355223, 8941850, 74128996, 9867402 #### [facility] [address] [place] [address]WU Clinical Summaryon [id number] Clinical Summary [address] [address] ED Clinical Summary Person Information Name: TERAARIADNA [place] Age: 37 Years : 1980 12:00 AM Sex: Female Language: New Zealander PCP: Charles Nicole DO Marital Status: Single Phone: [phone] Visit Id: Visit Reason: Anxiety; Paraesthesia; NUMBNESS [...] 09/14/2018 12:17 AM 09/14/2018 12:17 AM ADDRESS: [address] [place] [address] [place] [id number] PHYS DOC NOTES: MEDICAL INFORMATION: Prescriptions Given: Prescription Display gabapentin (gabapentin 100 mg Cap) 100 mg = 1 cap(s), Oral, Daily, X 7 day(s), # 7 cap(s), Refills(s) 0, Pharmacy: [facility] gabapentin (gabapentin 100 mg Cap) 100 mg = 1 cap(s), Oral, Daily, X 7 day(s), # 7 cap(s), Refills(s) 0, Pharmacy: [facility]/pharmacy #6177 magnesium oxide (magnesium oxide 400 mg Tab) 400 mg = 1 tab(s), Oral, Daily, X 7 day(s), # 7 tab(s), Refills(s) 0, Pharmacy: [facility] magnesium oxide (magnesium oxide 400 mg Tab) 400 mg = 1 tab(s), Oral, Daily, X 7 day(s), # 7 tab(s), Refills(s) 0, Pharmacy: [facility] #6177 Home Meds Display metformin (metformin 500 mg ER Tab) 250 mg, Oral, BID, Refills(s) 0 PATIENT EDUCATION INFORMATION: Instructions: Paresthesia, Uade-ca-Pfbp; Restless Legs Syndrome Follow up: With: Address: When: [facility], [address] [place] [address] Business (1) Within 1 to 2 days Comments: neurologist you may also follow up with him With: Address: When: Charles Nicole [address] [place], [place] [id number] Business (1) Within 1 to 2 days Comments: Return to ED if symptoms worsen DIAGNOSIS: 1:Restless leg syndromeNormalFisher Atul Medical CenterED Note-Nursingon 13-64-2040OC Note-NursingPt up to RR, gait steady.NormalNikolski [facility]ford Medical CenterED Note-NursingAware of need for urine specimen, denies urge at present, states will notify when able to produce sample, will monitor.[facility] CenterED Note-Physicianon [id number] Note-PhysicianBasic Information Time Seen: Génesis Lozoya DO 09/13/2018 22:45 Chief Complaint C/o bilateral lower leg numbness up to knees that progressed today. Pt reports 1 week ago she had some numbness, but today progress. Pt reports weakness in lower legs as well, Pt reports very anxiousover situation as well History of Present Illness [...] SEE IF IT HELPS, HER LABS HOWEVER SHOWNO ANEMIA OR FINDINGS CONSISTENT WITH B12 OR FOLATE DEFICIENCY. SHE VOICES UNDERSTANDING DISCHARGED HOME IN STABLE CONDITION Assessment/Plan 1. Restless leg syndrome Orders: gabapentin, 100 mg = 1 cap(s), Oral, Daily, X 7 day(s), # 7 cap(s), Refills(s) 0, Pharmacy: [facility]/pharmacy #6177 magnesium oxide, 400 mg = 1 tab(s), Oral, Daily, X 7 day(s), # 7 tab(s), Refills(s) 0, Pharmacy: [facility]/pharmacy #6177 Sodium Chloride 0.9% intravenous solution 1,000 mL, 1,000 mL, IV Piggyback, 1,000 mL/hr, for 2 hour(s), Stop date 09/14/18 0:55:00 EDT, STAT, Start date 09/13/18 22:56:00 EDT, 1 hour(s), Total volume(mL): 1,000, Bolus Dose: 1,000 mL Automated Diff [...] Sayda Kelley Within 1 to 2 days [facility] [address] [place] [address]- [facility] ([facility] Additional Instructions: neurologist you may also follow up with him Charles Nicole Within 1 to 2 days [address] [place] [address]- Business (1) Additional Instructions: Return to ED if symptoms worsen Patient Education Paresthesia, Xcpj-en-Asrx Restless Legs Syndrome Problem List/Past Medical History [...] Lymph Auto: 30.6 % (09/13/18 23:03:00 EDT) [place] Auto: 7.2 % (09/13/18 23:03:00 EDT) Eos Auto: 2.2 % (09/13/18 23:03:00 EDT) Basophil Auto: 0.6 % (09/13/18 23:03:00 EDT) Neutro Absolute: 5.9 E9/L (09/13/18 23:03:00 EDT) Lymph Absolute: 3 E9/L (09/13/18 23:03:00 EDT) [place] Absolute: 0.7 E9/L (09/13/18 23:03:00 EDT) Eos [...] 00:08:00 EDT) Diagnostic Results No qualifying data available.[facility] HospitalComment on above: Result Comment: Electronically Signed By: Génesis Lozoya DO\.dyan\Date and Time Signed: 09/14/18 01:59 EDTED Patient Education Noteon [id number] Patient Education NoteFamily Medicine Paresthesia Paresthesia is a burning or [...] Document Reviewed: 01/29/2012 ExitCare? Patient Information ?2015 Compliance 11. This information is not intended to replace advice given to you by your health care provider. Make sure you discuss any questions you have with yourhealth care provider. Restless Legs Syndrome Restless legs [...] ? Drawing. ? Crawling. ? Worming. ? [place]. ? Tingling. ? Pins and needles. ? Prickling. ? Pain. The sensations are usually accompanied by an overwhelming urge to move the legs. Sudden muscle jerks may also occur. Movement provides temporary relief from the discomfort. In rare cases, the arms may also be affected. Symptoms may interfere with going to sleep (sleep onset insomnia). Restless legssyndrome may also be related to periodic limb [...] Document Reviewed: 08/06/2011 ExitCare? Patient Information ?2014 Compliance 11. This information is not intended to replace advice given to you by your health care provider. Make sure you discuss any questions you have with yourhealth care provider.[facility] Patient Summaryon [id number] Patient Summary [address] [address] Patient Discharge Instructions Person Information Name: ARIADNA HALEY Age: 37 Years Arrival Date: 09/13/2018 10:16 PM Discharge Diagnosis: 1:Restless leg syndrome Primary Care Physician: Charles Nicole DO Provider Information Primary Provider: Génesis Lozoya DO Advanced Forging Engineer:Annette The exam and treatment you received in the Emergency Department were for an urgent problem and are not intended as complete care. It is important that you follow up with a doctor, nurse practitioner,or physician?s development assistant for ongoing care. If your symptoms [...] Follow-up Instructions: With: Address: When: Sayda Kelley [facility], [address] [place] [address] Business (1) Within 1 to 2 days Comments: neurologist you may also follow up with him With: Address: When: Charles Nicole [address] [place] [address] Business (1) Within 1 to 2 days Comments: Return to ED if symptoms worsen In the event that this physician does not participate in your insurance network, please consult with your insurance company to find a nearby participating provider. Patient Education Materials: Paresthesia, Ijjl-vr-Dcuv; Restless Legs Syndrome A MESSAGE TO ALL PATIENTS REGARDING OPIOIDS PRESCRIPTION OPIOIDS: WHAT YOU NEED TO KNOW Prescription opioids can be used to help relieve omcfffaq-cu-ziizjk pain and are often prescribed following a [...] and have fewer risks and side effects. Optionsmay include: ? Pain relievers such as acetaminophen, [...] unused prescription opioids: Find your community drug take- back program or Advise Only mail-back program, or flush them down the toilet, following guidance from the Food and Drug Administration (www.fda.gov/Drugs/ResourcesForYou). ? Visit www.cdc.gov/drugoverdose to learn about the risks of opioids abuse and overdose. ? If you believe you may be struggling with addiction, tell your health rn long term care and ask for guidance or call [facility]S National Helpline at 2-074-627-ZRPK. r Source: US Department of Health and Human Services/Center for Disease Control & Prevention [facility] Medications Given: Medication Dose Route Sodium Chloride 0.9% intravenous solution 1000.00 mL Initial Volume 1000.00 mL/hr IV Piggyback Left Mid Forearm Medication Information: New Medications [facility], [address], [place] [id number], [phone] gabapentin (gabapentin 100 mg Cap) 1 Capsules By Mouth every day for 7 Days. Refills: 0. magnesium oxide (magnesium oxide 400 mg Tab) 1 Tabs By Mouth every day for 7 Days. Refills: 0. [facility], [address] [place], [place] [id number], [phone] gabapentin (gabapentin 100 mg Cap) 1 Capsules [...] Pharmacy Information: Thank you for choosing [facility] Patient Education Materials: Paresthesia Paresthesia [...] Document Reviewed: 01/29/2012 ExitCare? Patient Information ?2015 Compliance 11. This information is not intended to replace advice given to you by your health care provider. Make sure you discuss any questions you have with yourhealth care provider. Restless Legs Syndrome Restless legs [...] ? Drawing. ? Crawling. ? [place]. ? [place]. ? Tingling. ? Pins and needles. ? Prickling. ? Pain. The sensations are usually accompanied by an overwhelming urge to move the legs. Sudden muscle jerks may also occur. Movement provides temporary relief from the discomfort. In rare cases, the arms may also be affected. Symptoms may interfere with going to sleep (sleep onset insomnia). Restless legssyndrome may also be related to periodic limb [...] Document Reviewed: 08/06/2011 ExitCare? Patient Information ?2015 ADTZ, ChemoCentryx. This information is not intended to replace advice given to you by your health care provider. Make sure you discuss any questions you have with yourhealth care provider. TERA Dorantes NICOLE B , have received the following patient education materials/instructions and have verbalized understanding: Patient Education Materials: Paresthesia, Zqqa-ep-Alic; Restless Legs Syndrome Follow-up Instructions: With: Address: When: Sayda Kelley [facility], [address] [place] [address] Business (1) Within 1 to 2 days Comments: neurologist you may also follow up with him With: Address: When: Charles Nicole [address] [place] [address] [place] [address] Business (1) Within 1 to 2 days Comments: Return to ED if symptoms worsen Prescriptions: [gabapentin (gabapentin 100 mg Cap)] [gabapentin (gabapentin 100 mg Cap)] [magnesium oxide (magnesium oxide 400 mg Tab)] [magnesium oxide (magnesium oxide 400 mg Tab)] Patient Signature Clinician/Nurse Signature Date 09/14/18 00:21:38NormalCincinnati Shriners HospitalHep Func Panelon 09-14-2018 Bilirubin.direct [Mass/Vol]UTCAbnormal0.1-0.9[facility]ers HospitalComment on above:Result Comment: Result verified by Discern Rule. Performed result UTC (Unable to Calculate) was sent as an Alpha code due the inability to calculate a valid numeric value.Performed By: #### 23696121, 2807182, 4595307, 8811302, 68429611, 2202041, 3719675, 8819759, 6924809, 55145172, 9717109 #### [facility] [address], [place] [address]Jgzwwjl [Mass/Vol]1.1 g/dLNormal1.1-2.2FMcKitrick HospitalComment on above:Performed By: #### 81939242, 0205709, 6040913, 0112497, 94627076, 4954954, 7453289, 6515863, 0285901, 77946450, 6994135 #### [facility] [address], [place] [address]Pnodzee [Mass/Vol]4.1 g/dLNormal3.3-5.0[facility] HospitalComment on above:Performed By: #### 78870154, 7873605, 6376781, 5682504, 89453368, 9034851, 8922226, 3203044, 1540354, 99281923, 8396191 #### [facility] [address] [place] [address]KZM [Catalytic activity/Vol]69 Int._Unit/VTyzbxl59-03GzfbidCincinnati Shriners HospitalComment on above:Performed By: #### 23774146, 1104115, 7950682, 2523612, 30166349, 2490409, 1699810, 6934253, 4919178, 05757616, 8265324 #### [facility] [address] [place] [address]TAR No additional P-5'-P [Catalytic activity/Vol]27 Int._Unit/L Normal6-46[facility]riners HospitalComment on above:Performed By: #### 22733008, 2607972, 7495982, 1342161, 43107865, 7687244, 1466018, 6830882, 1445661, 63458522, 5152896 #### [facility] [address] [place] [address]YNE [Catalytic activity/Vol]16 Int._Unit/LNormal5-43[facility] HospitalComment on above:Performed By: #### 77224148, 0080365, 8511043, 1289131, 65193544, 6817247, 0485130, 8431429, 6230063, 10992933, 0289521 #### [facility] [address], [place] [address]Prvqmchnb [Mass/Vol]0.5 mg/dLNormal0.0-1.1FMcKitrick HospitalComment on above:Performed By: #### 64051524, 5007761, 0737182, 1209084, 67478437, 2785241, 6414543, 4314981, 1006409, 51576043, 5376679 #### [facility] [address], [place] [address]Takgrazww.direct [Mass/Vol]mg/dLNormal0.1-0.4FMcKitrick HospitalComment on above:Performed By: #### 37401787, 5308060, 8677360, 9123349, 09312641, 6708575, 1257177, 9897433, 4192890, 04536962, 7820213 #### [facility] [address], [place] [address]Jqbzxjrn (S) [Mass/Vol]3.7 g/dLNormal1.4-4.0[facility]ers HospitalComment on above:Performed By: #### 76253909, 1486967, 8566734, 7012658, 76916712, 7051409, 0043096, 6427538, 9605601, 96779368, 9278809 #### [facility] [address] [place], [place] [address]Cbowxts [Mass/Vol]7.8 g/dLNormal6.0-7.8C[facility]riners HospitalComment on above:Performed By: #### [id number], 7532494, 8516331, 0679052, 22271266, 4643910, 5052320, 2275491, 0496070, 87664840, 3604106 #### [facility] [address] [place], [place] [address]Qvowbamqsiu 12-92-3727Lipivevml [Mass/Vol]1.9 mg/dLNormal 1.3-2.4FMcKitrick HospitalComment on above:Performed By: #### [id number], 8687588, 4376605, 1824053, 07735774, 5007975, 9576926, 5387168, 5520929, 54254931, 0696961 #### [facility] [address] [place], [place] [address]Xkdenbsekcf 66-68-2582Uxqqdjyqe [Mass/Vol]9 ng/mLNormal<=69 [facility] HospitalComment on above:Performed By: #### [id number], 5756958, 0849175, 9847874, 71584235, 4475019, 5418543, 5592409, 8156476, 25715693, 5234038 #### [facility] [address] [place], [place] [address]OY & PTTon 49-04-1950kGTD Coag (PPP) [Time]34.5 second(s)Normal 25.1-36.5[facility] Medical CenterComment on above:Result Comment: Heparin therapeutic range (represented by Anti-Factor Xa activity of 0.2 - 0.4 U/mL) corresponds to PTT of 56.6 - 109.0 sec.Performed By: #### 15623960, 2969209, 2261253, 9263133, 28776531, 0002829, 6218055, 1512299, 9596030, 02017151, 2849847 #### [facility] [address] [place], [place] [address]AHJ Coag (PPP) [Relative time]1.0 {INR}[facility]riners HospitalComment on above:Result Comment: INR results are specifically intended to assess patients stabilized on long-term Anticoagulation therapy suggested INR?s ?Less Intensive Anticoagulation? 2.0 ? 3.0 Conventional Range 3.0 ? 4.5Performed By: #### 29923222, 1608995, 2961301, 1688982, 02180186, 6710750, 7054761, 5234930, 2095520, 33675360, 6887677 #### [facility] [address] [place], [place] [address]YL Coag (PPP) [Time]11.2 second(s)Dxexre34.2-12.9FishGreater Baltimore Medical CenterComment on above:Performed By: #### 58563592, 4823301, 6086184, 0576612, 40614416, 0371335, 7660042, 6591029, 0830296, 32660513, 2778913 #### [facility] [address] [place], [place] [address]Pkkbvyozdowc 72-10-9608Nuytiwvki [Mass/Vol]3.8 mg/dLNormal 1.9-4.6[facility] CenterComment on above:Performed By: #### 29715570, 3180787, 4817032, 4723492, 00644776, 2566016, 3766428, 9757597, 7779542, 66506138, 8062157 #### [facility] [address] [place], [place] [address]Rlcwuleq 0 Hr.on 14-75-4704Gtbvobin I.cardiac [Mass/Vol]ng/mL Normal<=0.03C[facility]riners HospitalComment on above:Result Comment: New Troponin Assay 10/05/13 KRISHNA CA Cutoff value > or = 0.03 ng/mL in conjunction with clinical conditions of myocardial infarction. ([email or web address])Performed By: #### 71561087, 5016161, 9415572, 1684383, 07415710, 4333008, 7724891, 8540721, 5644480, 98590112, 1041964 #### [facility] [address] [place], [place] [address]XF With Cult Reflexon 84-67-6112Nxuaadhs LM Ql (Urine sed)TRACE NormalTraceCincinnati Shriners HospitalComment on above:Performed By: #### 26319067, 3659373, 4426056, 3973896, 53226098, 2496882, 9906666, 1610590, 0851741, 86896413, 3947062 #### [facility] [address] [place], [place] [address]Pdhiuehsf Ql (U)NegativeNormalNegativeCincinnati Shriners HospitalComment on above:Performed By: #### 99903516, 1333111, 0249470, 3507906, 00065955, 9325029, 2169212, 2151163, 8793608, 94898394, 6295119 #### [facility] [address] [place], [place] [address]Imscmpv (U)CLEARNormalClearSampson Regional Medical Centerer [facility] Va Medical CenterComment on above:Performed By: #### 96482690, 2440664, 2736368, 7912387, 06918969, 5362764, 4327527, 5737865, 9410957, 16798676, 3632665 #### [facility] [address] [place], [place] [address]Fcujm (U)YELLOWNormalYellowCincinnati Shriners HospitalComment on above:Performed By: #### 49595157, 6055826, 6840515, 7359788, 83212168, 9014163, 9574918, 0348127, 8623793, 08464637, 0989288 #### [facility] [address] [place], [place] [address]Gffnvxusyo cells.squamous LM.HPF (Urine sed) [#/Area]0-2Normal 0-2[facility] Medical CenterComment on above:Performed By: #### 17819853, 4548172, 5863707, 9982665, 96869094, 8647928, 7010301, 1928360, 8961531, 63973564, 8376444 #### [facility] [address] [place], [place] [address]Kagrnnn Test strip (U) [Mass/Vol]NegativeNormalNegativeCincinnati Shriners HospitalComment on above:Performed By: #### 81798714, 1809426, 7381355, 6611034, 55238998, 5957567, 1872768, 3204081, 5043160, 16417772, 7386965 #### [facility] [address] [place], [place] [address]Aijjxtuesd Ql (U)NegativeNormalNegWilson Street HospitalComment on above:Performed By: #### 92342011, 5495058, 8970544, 6909252, 05245518, 0741178, 8284190, 8322226, 5833817, 94341633, 1858225 #### [facility] [address] [place], [place] [address]Saavrnh (U) [Mass/Vol]NegativeNormalNegativeCincinnati Shriners HospitalComment on above:Performed By: #### 09327579, 5036677, 2611681, 6336899, 37743660, 7722477, 5886035, 5869692, 1360625, 17816870, 6139465 #### [facility] [address] [place] [address]Cbynntp.plasma/Gross.RBC (Bld) [Mass ratio]7-9Rigxyq7-4Vyoers [facility] Va Medical CenterComment on above:Performed By: #### 55421081, 1926801, 9702725, 1091588, 34275474, 2734866, 0997653, 4775812, 6633919, 33563673, 3503269 #### [facility] [address] [place] [address]Fplft Ql (Urine sed)TRACENoTrumbull Regional Medical Center Comment on above:Performed By: #### 82211553, 3028535, 5311630, 8652976, 82199677, 0710722, 5137089, 2535896, 1638714, 19293264, 9125443 #### [facility] [address] [place] [address]Gcjvhuk Ql (U)NegativeNonovant health presbyterian medical centerNegWilson Street Hospital Comment on above:Performed By: #### 45509337, 5659440, 0154164, 4282053, 18896234, 5134979, 5805071, 9548036, 8770812, 58771248, 3922425 #### [facility] [address] [place] [address]bD (U)6.0 [pH]5.0-9.0C[facility]riners HospitalComment on above:Performed By: #### 46669341, 5913774, 4763535, 0616263, 70539763, 2248423, 0727835, 6954837, 1360141, 56128747, 3252550 #### [facility] [address] [place] [address]Mqfuvep (U) [Mass/Vol]NegativeNormalNegativeCincinnati Shriners HospitalComment on above:Performed By: #### 26684668, 1719099, 7418739, 7742171, 03274661, 0082046, 0576367, 6346428, 5904819, 74567714, 5674936 #### [facility] [address] [place] [address]Bxinjclq gravity (U) [Rel density]1.0101.005-1.030C[facility]riners HospitalComment on above:Performed By: #### 15957113, 0268307, 9569110, 5956173, 00802272, 5334861, 4656108, 2968532, 6430648, 47388408, 7949280 #### [facility] [address] [place] [address]QJ Spec DescClean CatchNormalCincinnati Shriners HospitalComment on above:Performed By: #### 68397763, 9036829, 0007195, 1750275, 16146463, 0485083, 3244887, 3008787, 4882349, 18261285, 1177362 #### [facility] [address] [place] [address]Iuwdcyrtacyj Qn (U)0.2 {Carmella'U}/dLNormal0.0-1.0C[facility]riners HospitalComment on above:Performed By: #### 51371112, 1898442, 0916144, 2332049, 06287176, 1304156, 7310996, 1551047, 0929703, 34272129, 3324038 #### [facility] [address] [place] [address]WGO Auto Ql (U)NegativeNormalNegativeCincinnati Shriners HospitalComment on above:Performed By: #### 91242326, 7887841, 4768581, 2622970, 25064321, 8005226, 4482796, 7860152, 8441014, 27222766, 4687991 #### [facility] [address] [place], [place] [address]JRH LM.HPF (Urine sed) [#/Area]1-9Yrkhma4-3QdpcsuMcKitrick HospitalComment on above:Performed By: #### 56795262, 2014148, 3829228, 6418558, 77597351, 3096803, 5926192, 5407241, 3931613, 55666426, 5835396 #### [facility] [address] [place], [place] [address]VB Chest Single Viewon 04-21-7742ET Chest Single ViewExam Date/Time: 09/13/2018 23:44 EDT Reason for Exam: Chest pain Report IMPRESSION: NO ACTIVE PULMONARY DISEASE. COMMENT: AP portable chest shows normal-sized heart and unremarkable bronchovascular markings. There are no pneumonic infiltrates or consolidation. Both costophrenic angles are sharp. FINAL REPORT Dictated: 09/14/2018 8:03 am Sanjay Alcocer M.D. Signed (Electronic Signature): 09/14/2018 9:01 am Signed by: Sanjay Alcocer M.D. Transcribed by: minoo Technologist: [facility] CenterXR FOOT LEFT (MIN 3 VIEWS)on 41-72-6831ZB FOOT LEFT (MIN 3 VIEWS)Radiology exam is complete. No Radiologist dictation. Please follow up with ordering provider. Final resultNormalWayne Healthcare Main CampusXR FOOT RIGHT (MIN 3 VIEWS)on 62-34-7128ZW FOOT RIGHT (MIN 3 VIEWS)Radiology exam is complete. No Radiologist dictation. Please follow up with ordering provider. Final resultNormalWayne Healthcare Main CampuseGFRon 81-03-3924TUF/1.73 sq M predicted among blacks MDRD (S/P/Bld) [Vol rate/Area]mL/min/{1.73_m2}Normal>=59C[facility] Shriners HospitalComment on above:Order Comment: Order added by Discern Expert.Result Comment: eGFR is race adjusted. AA=.Performed By: #### 75779504, 2832753, 1464833, 6187201, 68221519, 1638975, 5432605, 6656639, 8903682, 53220103, 0893821 #### [facility] [address] [place], [place] [address]GOP/1.73 sq M predicted among non-blacks MDRD (S/P/Bld) [Vol rate/Area]mL/min/{1.73_m2}Normal>=59C[facility] HospitalComment on above: Order Comment: Order added by Discern Expert.Result Comment: Chronic kidney disease could be indicated at eGFR's of less than 60 mL/min/1.73m2. Kidney failure is indicated at less than 15 mL/min/1.73m2.Performed By: #### 97175150, 4967095, 8651094, 5783624, 70768257, 9952332, 6797533, 6801652, 8986144, 43140624, 9838389 #### [facility] [address] [place] [address] Vital Signs Date TimeVital SignValuePerforming JxxxqwyieGsqcoygs31-37-1369 09:08-0400 Diastolic blood dbbzhcik30 mm[Hg]Gay De La Torre EDUCATION ANALYST-C Work Phone: 1(180)[address]10-21-2025 09:08-0400 Heart rate82 /minGay Moralesmer EDUCATION ANALYST-C Work Phone: 1(184)[address]10-21-2025 09:08-0400 SaO2% (BldA) [Mass fraction]97 %Gay D eLa Torre EDUCATION ANALYST-C Work Phone: 1(431)[address]10-21-2025 09:08-0400 Systolic blood mbkwteid486 mm[Hg]Gay De La Torre EDUCATION ANALYST-C Work Phone: 1(199)[address]10-10-2025 17:29-0400 Diastolic blood ozsvqjqt28 mm[Hg]Gay De La Torre EDUCATION ANALYST-C Work Phone: 1(038)[address]10-10-2025 17:29-0400 Heart rate84 /minPamela Britt EDUCATION ANALYST-C Work Phone: 1(419)[address]10-10-2025 17:29-0400 Respiratory rate16 /minPamela Britt EDUCATION ANALYST-C Work Phone: 1(419)[address] [place], [place] 1661110-10-2025 17:29-0400 SaO2% (BldA) [Mass fraction]97 %Gay Britt EDUCATION ANALYST-C Work Phone: 1(419)[address] [place], [place] 1661110-10-2025 17:29-0400 Systolic blood rhduvgns567 mm[Hg]Gay Britt EDUCATION ANALYST-C Work Phone: 1(419)[address] [place], [place] 1661110-10-2025 15:06-0400 Body wozkik738.18 cmPamela Britt EDUCATION ANALYST-C Work Phone: 1(419)[address] [place], [place] 1661110-10-2025 15:06-0400 Body dwcjkaizkop14.4 [degF]Gay Britt EDUCATION ANALYST-C Work Phone: 1(419)[address] [place], [place] 1661110-10-2025 15:06-0400 Body ezfamz582.27 kgPamela Britt EDUCATION ANALYST-C Work Phone: 1(419)[address] [place], [place] 1661110-08-2025 13:34-0400 Body ujtaef394.18 cmPamela Britt EDUCATION ANALYST-C Work Phone: 1(419)[address] [place], [place] 1661110-08-2025 13:34-0400 Body mass index (BMI) [Ratio]43.8 kg/j7Xxlabj Britt EDUCATION ANALYST-C Work Phone: 1(419)[facility]-[address] [place], [place] 3260510-08-2025 13:34-0400 Body piokyp361 kgPamela Britt EDUCATION ANALYST-C Work Phone: 1(419)[address] [place], [place] 1661110-08-2025 13:34-0400 Diastolic blood ohaoroyp35 mm[Hg]Gay Britt EDUCATION ANALYST-C Work Phone: 1(419)[address] [place], [place] 1661110-08-2025 13:34-0400 Heart rate99 /minPamela Britt EDUCATION ANALYST-C Work Phone: 1(419)[address] [place], [place] 1661110-08-2025 13:34-0400 Respiratory rate18 /minGay Moralesmer EDUCATION ANALYST-C Work Phone: 1(375)[address] [place], [place] 1661110-08-2025 13:34-0400 SaO2% (BldA) [Mass fraction]95 %Gay De La Torre EDUCATION ANALYST-C Work Phone: 1(390)[address] [place], [place] 1661110-08-2025 13:34-0400 Systolic blood mm[Hg]Gayomer De La Torre EDUCATION ANALYST-C Work Phone: 1(023)[address] [place], [place] 1661110-08-2025 09:25-0400 Body lqeshl369.2 Bruno Pacheco MD Work Phone: 1(833)[address] [place], [place] 4726510-08-2025 09:25-0400Body mass index (BMI) [Ratio]45.58 kg/i9ApxymkTerence Pacheco MD Work Phone: 1(025)[address] [place], [place] 4726510-08-2025 09:25-0400Body banzls984 kg Terence Pacheco MD Work Phone: 1(627)[address] [place], [place] 4726510-08-2025 09:25-0400Diastolic blood dwyibrju43 mm[Hg]Terence Pacheco MD Work Phone: 1(520)[address] [place], [place] 4726510-08-2025 09:25-0400Systolic blood kuhetrbp071 mm[Hg]Terence Pacheco MD Work Phone: 1(814)[address] [place], [place] 4726509-24-2025 09:42-0400Body wiezxk837.18 Hilton De La Torre EDUCATION ANALYST-C Work Phone: 1(150)[address] [place], [place] 1661109-24-2025 09:42-0400 Diastolic blood awvxttsf77 mm[Hg]Gay De La Torre EDUCATION ANALYST-C Work Phone: 1(084)[address] [place], [place] 1661109-24-2025 09:42-0400 Heart rate65 /minGay Moralesmer EDUCATION ANALYST-C Work Phone: 1(752)[address] [place], [place] 1661109-24-2025 09:42-0400 SaO2% (BldA) [Mass fraction]97 %Agy Britt EDUCATION ANALYST-C Work Phone: 1(003)262-[address] [place], [place] 3260509-24-2025 09:42-0400 Systolic blood ecvanyfh335 mm[Hg]Gay Britt EDUCATION ANALYST-C Work Phone: 1(837)[address]09-10-2025 11:40-0400 Diastolic blood vkrhpvin61 mm[Hg]Gay Britt EDUCATION ANALYST-C Work Phone: 1(055)972-[address] [place], [place] 3260509-10-2025 11:40-0400 Heart rate86 /minPajessea Britt EDUCATION ANALYST-C Work Phone: 1(562)[address]09-10-2025 11:40-0400 Respiratory rate18 /minPajessea Britt EDUCATION ANALYST-C Work Phone: 1(241)[address]09-10-2025 11:40-0400 SaO2% (BldA) [Mass fraction]94 %Gay Britt EDUCATION ANALYST-C Work Phone: 1(061)[address]09-10-2025 11:40-0400 Systolic blood zcrdkqgu251 mm[Hg]Gay Britt EDUCATION ANALYST-C Work Phone: 1(144)[address]09-10-2025 10:11-0400 Body .18 cmPamela Britt EDUCATION ANALYST-C Work Phone: 1(433)[address]09-10-2025 10:11-0400 Body eytekr370 kgPamela Britt EDUCATION ANALYST-C Work Phone: 1(035)361-[address] [place], [place] 3260509-03-2025 14:20-0400 Diastolic blood iirngsvc26 mm[Hg]Chair Brandon Work Phone: [facility]09-03-2025 14:20-0400Heart rate82 /min Chair Brandon Work Phone: [facility]09-03-2025 14:20-0400Respiratory rate 18 /minChair Brandon Work Phone: [facility]09-03-2025 14:20-1495DcM6% (BldA) [Mass fraction]98 %Chair Brandon Work Phone: [facility]09-03-2025 14:20-0400Systolic blood cszqymij960 mm[Hg]Chair Brandon Work Phone: [facility]09-03-2025 10:42-0400Body temperature 97.81 [degF]Chair Gabbi Work Phone: [facility]08-27-2025 10:38-0400Body xrhyqs255.18 cmPkendrick Britt EDUCATION ANALYST-C Work Phone: 1(548)095-[address] [place], [place] 3260508-27-2025 10:38-0400 Diastolic blood azgkhmlo52 mm[Hg]Gay Britt EDUCATION ANALYST-C Work Phone: 1(791)389-[address] [place], [place] 3260508-27-2025 10:38-0400 Heart rate92 /minJosephinebryce Britt EDUCATION ANALYST-C Work Phone: 1(188)295-[address] [place], [place] 3260508-27-2025 10:38-0400 SaO2% (BldA) [Mass fraction]96 %Gay Moralesmer EDUCATION ANALYST-C Work Phone: 1(085)062-[address] [place], [place] 3260508-27-2025 10:38-0400 Systolic blood kiptasal727 mm[Hg]Gay Britt EDUCATION ANALYST-C Work Phone: 7(883)452-[address] [place], [place] 3260508-21-2025 13:51-0400 Body .29 [degF]Chair Seo Work Phone: [facility]08-21-2025 13:51-0400Diastolic blood ioxgvfrn09 mm[Hg]Chair Gabbi Work Phone: [facility]08-21-2025 13:51-0400Heart rate76 /min Chair Brandon Work Phone: [facility]08-21-2025 13:51-0400Respiratory rate 20 /minChair Brandon Work Phone: [facility]08-21-2025 13:51-1187QjV9% (BldA) [Mass fraction]98 %Chair Gabbi Work Phone: [facility]08-21-2025 13:51-0400Systolic blood dgtdiyid677 mm[Hg]Chair Gabbi Work Phone: [facility]07-24-2025 14:10-0400Diastolic blood xwacanse72 mm[Hg]Chair Seo Work Phone: [facility]07-24-2025 14:10-0400Heart rate83 /min Chair Gabbi Work Phone: [facility]07-24-2025 14:10-0400Respiratory rate 18 /minChair Gabbi Work Phone: [facility]07-24-2025 14:10-5729WwK1% (BldA) [Mass fraction]96 %Chair Seo Work Phone: [facility]07-24-2025 14:10-0400Systolic blood cqxqvxgo311 mm[Hg]Chair Seo Work Phone: [facility]07-22-2025 10:45-0400Body ozvkwg543.18 cmPamela Britt EDUCATION ANALYST-C Work Phone: 5(421)012-[address] [place], [place] 3260507-22-2025 10:45-0400 Body mass index (BMI) [Ratio]44.8 kg/q9Vuowdb Britt EDUCATION ANALYST-C Work Phone: 8(629)929-[address] [place], [place] 3260507-22-2025 10:45-0400 Body sgxeqe097.72 kgPajessea Britt EDUCATION ANALYST-C Work Phone: 4(055)792-[address] [place], [place] 3260507-22-2025 10:45-0400 Diastolic blood ocmwpzny71 mm[Hg]Gay De La Torre EDUCATION ANALYST-C Work Phone: [facility]07-22-2025 10:45-0400 Heart rate63 /minGay Moralesmer EDUCATION ANALYST-C Work Phone: 8(255)468-[address] [place], [place] 3260507-22-2025 10:45-0400 Systolic blood dgkwomyv593 mm[Hg]Gay Britt EDUCATION ANALYST-C Work Phone: [facility]07-10-2025 09:08-0400 Diastolic blood ubgkyuip14 mm[Hg]Gay De La Torre EDUCATION ANALYST-C Work Phone: [facility]07-10-2025 09:08-0400 Heart rate64 /minGay De La Torre EDUCATION ANALYST-C Work Phone: [facility]07-10-2025 09:08-0400 SaO2% (BldA) [Mass fraction]98 %Gay De La Torre EDUCATION ANALYST-C Work Phone: [facility]07-10-2025 09:08-0400 Systolic blood swsowdjf133 mm[Hg]Gay De La Torre EDUCATION ANALYST-C Work Phone: 1(717)062-[address] [place], [place] 3260507-09-2025 14:46-0400 Body glmzehiwvog37.81 [degF]Chair Brandon Work Phone: [facility]07-09-2025 14:46-0400Diastolic blood nuoxdqdg25 mm[Hg]Chair Gabbi Work Phone: [facility]07-09-2025 14:46-0400Heart rate77 /min Chair Gabbi Work Phone: [facility]07-09-2025 14:46-0400Respiratory rate 18 /minChair Brandon Work Phone: [facility]07-09-2025 14:46-5298BcB0% (BldA) [Mass fraction]98 %Chair Gabbi Work Phone: [facility] HospitalComment on above:[id number] 14:46-0400Systolic blood ihsbfnbd468 mm[Hg]Chair Gabbi Work Phone: [facility]07-09-2025 09:13-0400Body .2 cmJaimee Deven STRAP MAKING MACHINE OPERATOR.[employer]ODUCT [employer] Work Phone: [facility]07-09-2025 09:13-0400Body mass index (BMI) [Ratio]45.12 kg/t4IqtqanVaibhav Carvalho STRAP MAKING MACHINE OPERATOR.VP [employer]ODUCT MARKET[employer] Work Phone: [facility]07-09-2025 09:13-0400Body temperature 97.5 [degF]Vaibhav Hernandezod STRAP MAKING MACHINE OPERATOR.VP [employer]ODUCT [employer]ET[employer] Work Phone: [facility]07-09-2025 09:13-0400Body ifklgx155.7 kgVaibhav Hernandezod STRAP MAKING MACHINE OPERATOR.VP [employer]ET[employer] Work Phone: [facility]07-09-2025 09:13-0400Diastolic blood wiadnzxg65 mm[Hg]Vaibhav Deven STRAP MAKING MACHINE OPERATOR.VP [employer]ODUCT [employer]ET[employer] Work Phone: [facility]07-09-2025 09:13-0400Heart rate88 /min Vaibhav Carvalho STRAP MAKING MACHINE OPERATOR.VP [employer]ODUCT MARKETING Work Phone: [facility]07-09-2025 09:13-0400Respiratory rate 18 /minVaibhav Carvalho STRAP MAKING MACHINE OPERATOR.VP PRODUCT MARKETING Work Phone: [facility]07-09-2025 09:13-2215GmN0% (BldA) [Mass fraction]98 %Vaibhav Carvalho STRAP MAKING MACHINE OPERATOR.VP PRODUCT MARKETING Work Phone: [facility]07-09-2025 09:13-0400Systolic blood hpnbxjun572 mm[Hg]Vaibhav Carvalho STRAP MAKING MACHINE OPERATOR.VP PRODUCT MARKETING Work Phone: [facility]06-26-2025 13:47-0400Body temperature 98.01 [degF]Chair Gabbi Work Phone: [facility]06-26-2025 13:47-0400Diastolic blood tppyfefv01 mm[Hg]Chair Brandon Work Phone: [facility]06-26-2025 13:47-0400Heart rate89 /min Chair Gabbi Work Phone: [facility]06-26-2025 13:47-0400Respiratory rate 20 /minChair Brandon Work Phone: [facility]06-26-2025 13:47-1114KsK6% (BldA) [Mass fraction]97 %Chair Brandon Work Phone: [facility]06-26-2025 13:47-0400Systolic blood tsikdqeq658 mm[Hg]Chair Brandon Work Phone: [facility]06-23-2025 11:17-0400Body kqxlgy623.18 cmPamela Britt EDUCATION ANALYST-C Work Phone: 1(854)625-[address] [place], [place] 3260506-23-2025 11:17-0400 Body mass index (BMI) [Ratio]44.1 kg/v9Omuiyd Britt EDUCATION ANALYST-C Work Phone: 1(240)538-[address] [place], [place] 3260506-23-2025 11:17-0400 Body labqak475.91 kgPajessea Britt EDUCATION ANALYST-C Work Phone: 1(933)546-[address] [place], [place] 3260506-23-2025 11:17-0400 Diastolic blood iqkzqhla95 mm[Hg]Gay Britt EDUCATION ANALYST-C Work Phone: 1(924)122-[address] [place], [place] 3260506-23-2025 11:17-0400 Heart rate96 /minGay Britt EDUCATION ANALYST-C Work Phone: 1(350)316-[address] [place], [place] 3260506-23-2025 11:17-0400 Systolic blood kxtjrrew829 mm[Hg]Gay Britt EDUCATION ANALYST-C Work Phone: 1(511)081-[address] [place], [place] 3260506-10-2025 14:46-0400 Diastolic blood nfhajere52 mm[Hg]Chair Brandon Work Phone: [facility]06-10-2025 14:46-0400Heart rate68 /min Chair Brandon Work Phone: [facility]06-10-2025 14:46-0400Respiratory rate 20 /minChair Brandon Work Phone: [facility]06-10-2025 14:46-5974FdX9% (BldA) [Mass fraction]94 %Chair Brandon Work Phone: [facility] on above:[id number] 14:46-0400Systolic blood jsmkurqn893 mm[Hg]Chair Gabbi Work Phone: [facility]06-10-2025 09:19-0400Body temperature 97.81 [degF]Chair Brandon Work Phone: [facility]05-14-2025 14:16-0400Body mass index (BMI) [Ratio]44.01 kg/j4Cilgx Gabbi Work Phone: [facility]05-14-2025 14:16-0400Body temperature 97.59 [degF]Chair Gabbi Work Phone: [facility]05-14-2025 14:16-0400Body .5 kgChair Gabbi Work Phone: [facility]05-14-2025 14:16-0400Diastolic blood nqcusfer90 mm[Hg]Chair Gabbi Work Phone: [facility]05-14-2025 14:16-0400Heart rate85 /min Chair Gabbi Work Phone: [place] [address]-14-2025 14:16-0400Respiratory rate 16 /minChair Gabbi Work Phone: [facility]05-14-2025 14:16-1822FhQ6% (BldA) [Mass fraction]96 %Chair Gabbi Work Phone: [facility]05-14-2025 14:16-0400Systolic blood cpcjuzya999 mm[Hg]Chair Gabbi Work Phone: [facility]05-12-2025 14:15-0400Body temperature 98.29 [degF]Chair Brandon Work Phone: [facility]05-12-2025 14:15-0400Diastolic blood ywwblqkb19 mm[Hg]Chair Brandon Work Phone: [facility]05-12-2025 14:15-0400Heart rate76 /min Chair Brandon Work Phone: [facility]05-12-2025 14:15-0400Respiratory rate 16 /minChair Brandon Work Phone: [facility]05-12-2025 14:15-8855ZhY7% (BldA) [Mass fraction]97 %Chair Gabbi Work Phone: [facility]05-12-2025 14:15-0400Systolic blood ufirffpz588 mm[Hg]Chair Gabbi Work Phone: [facility]04-28-2025 13:20-0400Body temperature 97.59 [degF]Chair Brandon Work Phone: [place] [address]-28-2025 13:20-0400Diastolic blood qnvywppc18 mm[Hg]Chair Gabbi Work Phone: [facility]04-28-2025 13:20-0400Heart fxto185 /minChair Brandon Work Phone: [place] [address]-28-2025 13:20-0400Respiratory rate 18 /minChair Brandon Work Phone: [facility]04-28-2025 13:20-2220DgP5% (BldA) [Mass fraction]97 %Chair Gabbi Work Phone: [facility]04-28-2025 13:20-0400Systolic blood jbkgsxre998 mm[Hg]Chair Gabbi Work Phone: [facility]04-16-2025 16:17-0400Heart rate90 /min Gay De La Torre EDUCATION ANALYST-C Work Phone: [facility]04-16-2025 16:17-0400 SaO2% (BldA) [Mass fraction]97 %Gay De La Torre EDUCATION ANALYST-C Work Phone: [facility]04-16-2025 13:54-0400 Diastolic blood lawhimts62 mm[Hg]Chair Brandon Work Phone: [place] [address]-16-2025 13:54-0400Heart rate90 /min Chair Gabbi Work Phone: [place] [address]-16-2025 13:54-0400Respiratory rate 18 /minChair Seo Work Phone: [place] [address]-16-2025 13:54-9580WzL6% (BldA) [Mass fraction]97 %Chair Seo Work Phone: [place] [address]-16-2025 13:54-0400Systolic blood bonupndo139 mm[Hg]Chair Seo Work Phone: [place] [address]-16-2025 08:43-0400Body oikabk731.2 cmJaimee Deven STRAP MAKING MACHINE OPERATOR.[employer] Work Phone: [place] [address]-16-2025 08:43-0400Body mass index (BMI) [Ratio]45.5 kg/z2Qydrno Deven STRAP MAKING MACHINE OPERATOR.[employer] Work Phone: [place] [address]-16-2025 08:43-0400Body temperature 97.5 [degF]Vaibhav Deven STRAP MAKING MACHINE OPERATOR.[employer] Work Phone: [place] [address]-16-2025 08:43-0400Body iamxtt270.8 kgJaimee Deven STRAP MAKING MACHINE OPERATOR.[employer] Work Phone: [place] [address]-16-2025 08:43-0400Diastolic blood dopnpkkt25 mm[Hg]Vaibhav Deven STRAP MAKING MACHINE OPERATOR.[employer] Work Phone: [place] [address]-16-2025 08:43-0400Heart rate77 /min Vaibhav Deven STRAP MAKING MACHINE OPERATOR.[employer] Work Phone: [place] [address]-16-2025 08:43-0400Respiratory rate 18 /minJaimee Deven STRAP MAKING MACHINE OPERATOR.[employer] Work Phone: [place] [address]-16-2025 08:43-0104AwU4% (BldA) [Mass fraction]97 %Vaibhavanil Carvalho STRAP MAKING MACHINE OPERATOR.[employer] Work Phone: [facility]04-16-2025 08:43-0400Systolic blood luhuhktd319 mm[Hg]Vaibhav Carvalho STRAP MAKING MACHINE OPERATOR.[employer] Work Phone: [facility]04-14-2025 15:04-0400Body ukkerr294.2 cmGordo Barfield MD Work Phone: [facility] SystemLsryopdlwz77-38-7790 15:04-0400Body mass index (BMI) [Ratio]44.32 kg/n8EvvrkoGordo Barfield MD Work Phone: [facility] SystemPzzaycrgpf04-64-9943 15:04-0400Body avpsqz650.37 kgGordo Barfield MD Work Phone: [facility] SystemZbtkniawvt59-92-8275 15:04-0400Diastolic blood wthyajvn57 mm[Hg]Gordo Barfield MD Work Phone: [facility] SystemBimgtwoynn41-10-4452 15:04-0400Heart rypn052 /min Gordo Barfield MD Work Phone: [place] [address]Teyktgdjnf73-87-8899 15:04-0400Systolic blood ejgkjhtx097 mm[Hg]Gordo Barfield MD Work Phone: [facility] SystemQveabzovcb15-94-1382 14:36-0400Diastolic blood gygksurj63 mm[Hg]Chair Gabbi Work Phone: [facility]03-18-2025 14:36-0400Heart rate83 /min Chair Gabbi Work Phone: [facility]03-18-2025 14:36-0400Respiratory rate 18 /minChair Gabbi Work Phone: [facility]03-18-2025 14:36-4900HcQ0% (BldA) [Mass fraction]97 %Chair Gabbi Work Phone: [facility]03-18-2025 14:36-0400Systolic blood rpmgjsul828 mm[Hg]Chair Seo Work Phone: [facility]03-18-2025 10:54-0400Body temperature 98.01 [degF]Chair Seo Work Phone: [facility]03-10-2025 16:05-0400Diastolic blood iehwkxjb64 mm[Hg]Gay De La Torre EDUCATION ANALYST-C Work Phone: [facility]03-10-2025 16:05-0400 Heart xuuf146 /minGay De La Torre EDUCATION ANALYST-C Work Phone: [facility]03-10-2025 16:05-0400 SaO2% (BldA) [Mass fraction]96 %Gay Britt EDUCATION ANALYST-C Work Phone: [facility]03-10-2025 16:05-0400 Systolic blood lnfonwqw658 mm[Hg]Gay De La Torre EDUCATION ANALYST-C Work Phone: [facility]03-05-2025 15:06-0500 Body xmaagf024.2 cmLois Holm MD Work Phone: [facility]03-05-2025 15:06-0500 Body mass index (BMI) [Ratio]44.92 kg/m1YopnlaLois Holm MD Work Phone: [facility]03-05-2025 15:06-0500 Body zuqhih903.09 kgLois Holm MD Work Phone: [facility]03-05-2025 15:06-0500 Diastolic blood amhrhcrc81 mm[Hg]Lois Holm MD Work Phone: [facility]03-05-2025 15:06-0500 Heart rate84 /minLois Holm MD Work Phone: [facility]03-05-2025 15:06-0500 Systolic blood mm[Hg]Lois Holm MD Work Phone: [facility]02-26-2025 11:27-0500 Diastolic blood lavenvuj96 mm[Hg]Gay Moralesmer EDUCATION ANALYST-C Work Phone: 1(653)132-[address] [place], [place] 3260502-26-2025 11:27-0500 Heart rate78 /minPajessea Britt EDUCATION ANALYST-C Work Phone: 1(462)348-[address] [place], [place] 3260502-26-2025 11:27-0500 Respiratory rate16 /minPajessea Britt EDUCATION ANALYST-C Work Phone: 1(451)745-[address] [place], [place] 3260502-26-2025 11:27-0500 SaO2% (BldA) [Mass fraction]96 %Gay Britt EDUCATION ANALYST-C Work Phone: 1(066)995-[address] [place], [place] 3260502-26-2025 11:27-0500 Systolic blood arzqcryn260 mm[Hg]Gay Britt EDUCATION ANALYST-C Work Phone: 1(337)712-[address] [place], [place] 3260502-26-2025 09:54-0500 Body gfximu158.18 cmPamela Britt EDUCATION ANALYST-C Work Phone: 1(561)896-[address] [place], [place] 3260502-26-2025 09:54-0500 Body qajgnk030 kgPamela Britt EDUCATION ANALYST-C Work Phone: 1(739)383-[address] [place], [place] 3260502-19-2025 14:16-0500 Body .91 [degF]Marky WARREN-C Work Phone: [facility]02-18-2025 14:30-0500Body temperature 97.39 [degF]Chair Brandon Work Phone: [facility]02-18-2025 14:30-0500Diastolic blood tyfxffxg69 mm[Hg]Chair Gabbi Work Phone: [facility]02-18-2025 14:30-0500Heart rate69 /min Chair Brandon Work Phone: [facility]02-18-2025 14:30-0500Respiratory rate 18 /minChair Brandon Work Phone: [facility]02-18-2025 14:30-7741RhX1% (BldA) [Mass fraction]98 %Chair Brandon Work Phone: [facility]02-18-2025 14:30-0500Systolic blood mm[Hg]Chair Brandon Work Phone: [facility]02-17-2025 15:25-0500Diastolic blood kbyxippb64 mm[Hg][facility]02-17-2025 15:25-0500Heart aclz453 /min[facility]02-17-2025 15:25-0719EvW0% (BldA) [Mass fraction]97 %[facility]02-17-2025 15:25-0500 Systolic blood jwqpnanx148 mm[Hg][facility]01-21-2025 14:55-0500Diastolic blood eaylrioq00 mm[Hg]Chair Brandon Work Phone: [facility]01-21-2025 14:55-0500Heart rate70 /min Chair Brandon Work Phone: [facility]01-21-2025 14:55-0500Respiratory rate 18 /minChair Brandon Work Phone: [facility]01-21-2025 14:55-9911NwZ6% (BldA) [Mass fraction]98 %Chair Brandon Work Phone: [facility]01-21-2025 14:55-0500Systolic blood lucbysgp44 mm[Hg]Chair Brandon Work Phone: [facility]01-21-2025 08:55-0500Body mass index (BMI) [Ratio]45.08 kg/t3YcoqdcVaibhav Carvalho APRN.[employer] Work Phone: [facility]01-21-2025 08:55-0500Body temperature 97.59 [degF]Vaibhav Carvalho APRN.[employer] Work Phone: [facility]01-21-2025 08:55-0500Body .6 kgMarvelimee Deven STRAP MAKING MACHINE OPERATOR.[employer] Work Phone: [facility]01-21-2025 08:55-0500Diastolic blood mm[Hg]Vaibhav Deven STRAP MAKING MACHINE OPERATOR.[employer] Work Phone: [facility]01-21-2025 08:55-0500Heart rate79 /min Vaibhav Deven STRAP MAKING MACHINE OPERATOR.[employer] Work Phone: [facility]01-21-2025 08:55-0500Respiratory rate 16 /minTodde Deven STRAP MAKING MACHINE OPERATOR.[employer] Work Phone: [facility]01-21-2025 08:55-4545PuK1% (BldA) [Mass fraction]98 %Vaibhav Deven STRAP MAKING MACHINE OPERATOR.[employer] Work Phone: [facility]01-21-2025 08:55-0500Systolic blood oefmvmdt004 mm[Hg]Vaibhav Deven STRAP MAKING MACHINE OPERATOR.[employer] Work Phone: [facility]01-14-2025 11:37-0500Body mass index (BMI) [Ratio]45.08 kg/m2Oly WARREN Work Phone: [facility] SystemFnnhoasfpp61-68-8407 11:37-0500Body zmsoej504.54 kgOly WARREN Work Phone: [facility] SystemQiilfmyovw30-95-7826 11:37-0500Diastolic blood iwsmysvb08 mm[Hg]Oly WARREN Work Phone: [facility] SystemSsgpvzwfyh08-81-2034 11:37-0500Systolic blood bhxibqgw491 mm[Hg]Oly WARREN Work Phone: [facility] SystemSfnnddobti25-97-6989 15:02-0500Body temperature 97.3 [degF]Chair Seo Work Phone: [facility]12-27-2024 15:02-0500Diastolic blood znknxjeb18 mm[Hg]Chair Seo Work Phone: [place] [address]-27-2024 15:02-0500Heart rate73 /min Chair Gabbi Work Phone: [facility]12-27-2024 15:02-0500Respiratory rate 20 /minChair Gabbi Work Phone: [facility]12-27-2024 15:02-4640DcB1% (BldA) [Mass fraction]98 %Chair Gabbi Work Phone: [facility] HospitalComment on above:[id number] 15:02-0500Systolic blood rrpixtng550 mm[Hg]Chair Gabbi Work Phone: [facility]12-04-2024 09:31-0500Body temperature 97.59 [degF]Ma Joanna Work Phone: [facility]12-04-2024 09:31-0500Diastolic blood kxywfswp02 mm[Hg]Ma Sand Work Phone: [facility]Comment [facility]:Xjxyoa31-26-1984 09:31-0500Heart rate66 /minMa Sand Work Phone: [place] [address]-04-2024 09:31-0500Respiratory rate 16 /minMa Sand Work Phone: [facility]12-04-2024 09:31-5482EyD1% (BldA) [Mass fraction]99 %Ma Sand Work Phone: [place] [address]-04-2024 09:31-0500Systolic blood agepcpfi271 mm[Hg]Ma Sand Work Phone: [facility] HospitalComment on above:Afnmih66-48-9771 10:12-0500Body luhpso992.2 cmGordo Barfield MD Work Phone: [facility] SystemYliniojehl41-01-3575 10:12-0500Body mass index (BMI) [Ratio]44.95 kg/m4WlmbkhGordo Barfield MD Work Phone: [place] [address]Czffhqvfvr17-63-2158 10:12-0500Body .18 kgGordo Barfield MD Work Phone: [facility] SystemDexixrzazx87-63-5740 10:12-0500Diastolic blood ihbqnyzr85 mm[Hg]Gordo Barfield MD Work Phone: [facility] SystemDhqvxvarkv60-78-9737 10:12-0500Systolic blood thplcych967 mm[Hg]Gordo Barfield MD Work Phone: [facility] SystemFgnwstxccc49-15-8219 10:00-0500Body .2 cmHayden Arciniega MD Work Phone: 1(350)[facility]11-14-2024 10:00-0500Body mass index (BMI) [Ratio]43.07 kg/c8KkhrhhzHayden Arciniega MD Work Phone: 1(432)[facility]11-14-2024 10:00-0500Body urnpnysmzsp60 [degF]Hayden Arciniega MD Work Phone: 1(967)[facility]11-14-2024 10:00-0500Body dmpbyi675.74 kgMojose Arciniega MD Work Phone: 1(435)[facility]11-14-2024 10:00-0500Diastolic blood emymdvxl23 mm[Hg]Hayden Arciniega MD Work Phone: 1(786)[facility]11-14-2024 10:00-0500Heart rate 86 /minMojose Arciniega MD Work Phone: 1(739)[facility]11-14-2024 10:00-2784SnE6% (BldA) [Mass fraction]97 %Hayden Arciniega MD Work Phone: 1(656)[facility]11-14-2024 10:00-0500Systolic blood lbaalzai545 mm[Hg]Hayden Arciniega MD Work Phone: 1(938)[facility]11-10-2024 13:27-0500Body mass index (BMI) [Ratio]45.42 kg/m2Patennille Nichols DO Work Phone: [facility] SystemBaxwyoifhf44-90-0803 13:27-0500Body temperature 98.71 [degF]Marky Nichols DO Work Phone: [place] [address]Xtknobqqyw85-14-6112 13:27-0500Body zwiqmi319.54 kgPatennille Nichols DO Work Phone: [place] [address]Bltqwbsywr43-00-3751 13:27-0500Diastolic blood njcifknz69 mm[Hg]Marky Nichols DO Work Phone: [place] [address]Meonmabeqw11-53-5606 13:27-0500Heart rate78 /min Marky Nichols DO Work Phone: [place] [address]Xwxjbclpcl76-79-0651 13:27-0901RgS8% (BldA) [Mass fraction]99 %Marky Nichols DO [facility] Phone: [facility]Kmxzeebqzx84-30-5067 13:27-0500Systolic blood ecujkipu338 mm[Hg]Marky Nichols DO Work Phone: no[facility] CenterPxgesmkgkn03-44-2579 14:35-0400Body mass index (BMI) [Ratio]44.17 kg/m2Oly Temo WARREN Work Phone: [facility] SystemMqjfudvses53-22-6260 14:35-0400Body ecpjrt467.91 kgOly Temo PA Work Phone: [facility] SystemOvvhkypjim36-08-9020 14:35-0400Diastolic blood mm[Hg]Oly Plascencia PA Work Phone: [place] [address]Rvdqetfrko58-21-0535 14:35-0400Systolic blood hmniwqum625 mm[Hg]Oly Plascencia PA Work Phone: [place] [address]Boxamiruun96-55-3474 10:11-0400Body .2 cmMa Sand Work Phone: [facility]10-31-2024 10:11-0400Body mass index (BMI) [Ratio]43.06 kg/m2Ma Sand Work Phone: [facility]10-31-2024 10:11-0400Body temperature 97.59 [degF]Hoda Sand Work Phone: [place] [address]-31-2024 10:11-0400Body hoxqki506.74 kgMa Sand Work Phone: [facility]10-31-2024 10:11-0400Diastolic blood zmbjqsmo16 mm[Hg]Ma Sand Work Phone: [facility]10-31-2024 10:11-0400Heart rate71 /min Ma Sand Work Phone: [facility]10-31-2024 10:11-0400Respiratory rate 16 /minMa Sand Work Phone: [facility]10-31-2024 10:11-1264HfV1% (BldA) [Mass fraction]94 %Ma Sand Work Phone: [facility]10-31-2024 10:11-0400Systolic blood bwteusbu183 mm[Hg]Ma Sand Work Phone: [facility]10-24-2024 11:24-0400Body mass index (BMI) [Ratio]43.67 kg/z5Artha Skip DO Work Phone: [facility] SystemPlzxunxjuu17-53-0824 11:24-0400Body bumiqq007.46 kgCorey Skip DO Work Phone: [facility] SystemHoutxqhlha68-90-2584 11:24-0400Diastolic blood pxkzvlik86 mm[Hg]Luan Skip DO Work Phone: [facility] SystemOxqzvhogql32-66-3583 11:24-0400Systolic blood hgutgabs805 mm[Hg]Luan Skip DO Work Phone: [facility] SystemAsqmthphbf83-15-6708 09:20-0400Body rkdabk651.18 cmNP-C Gay De La Torre Work Phone: [facility]10-24-2024 09:20-0400 Body mass index (BMI) [Ratio]43 kg/m2NPDestiny De La Torre Work Phone: [facility]10-24-2024 09:20-0400 Body gyxsna493.73 kgNP-C Gay Moralesmer Work Phone: 1(447)880-[address] [place], [place] [address]509-30-2024 11:04-0400 Body wxcylojgjkh17.2 [degF]Hoda Sand Work Phone: [facility]09-30-2024 11:04-0400Diastolic blood pdoyeziq54 mm[Hg]Ma Sand Work Phone: [facility] HospitalComment on above:germak48-02-8469 11:04-0400Heart rate95 /minMa Sand Work Phone: [facility]09-30-2024 11:04-0400Respiratory rate 16 /minMa Sand Work Phone: [facility]09-30-2024 11:04-2637VeT3% (BldA) [Mass fraction]98 %Ma Sand Work Phone: [facility]09-30-2024 11:04-0400Systolic blood jwttqvar348 mm[Hg]Ma Sand Work Phone: [facility] HospitalComment on above:hfofjc10-27-9847 09:23-0400Diastolic blood eyahquut85 mm[Hg]EDUCATION ANALYST-C Gay Moralesmer Work Phone: 1(190)811-[address] [place], [place] [address]509-25-2024 09:23-0400 Heart rate70 /minNP-C Gay Moralesmer Work Phone: [facility]09-25-2024 09:23-0400 Respiratory rate16 /minNP-C Gay Moralesmer Work Phone: 1(393)955-[address] [place], [place] [address]509-25-2024 09:23-0400 SaO2% (BldA) [Mass fraction]96 %EDUCATION ANALYST-C Gay Moralesmer Work Phone: [facility]09-25-2024 09:23-0400 Systolic blood vnanhbgd399 mm[Hg]EDUCATION ANALYST-C Gay Moralesmer Work Phone: 1(238)791-[address] [place], [place] 32[address]509-25-2024 07:27-0400 Body mqhwva328.18 cmNP-C Gay De La Torre Work Phone: [facility]09-25-2024 07:27-0400 Body .46 kgNP-C Gay De La Torre Work Phone: [facility]09-06-2024 11:31-0400 Body qymyky732.6 kgPrem[facility]09-06-2024 11:31-0400 Diastolic blood mrnbvubd88 mm[Hg][facility]09-06-2024 11:31-0400Heart rate69 /minPrem[facility]09-06-2024 11:31-6126EdK7% (BldA) [Mass fraction]98 %[facility] 01-28-2024 11:31-0400Systolic blood rngdkjic026 mm[Hg][facility]09-03-2024 11:30-0400Body kekjiqxwvdr14.39 [degF]Ma Sand Work Phone: [facility]09-03-2024 11:30-0400Diastolic blood brhxddad24 mm[Hg]Ma Sand Work Phone: [facility]09-03-2024 11:30-0400Heart rate68 /min Ma Sand Work Phone: [facility]09-03-2024 11:30-0400Respiratory rate 16 /minMa Sand Work Phone: [facility]09-03-2024 11:30-9975IeH1% (BldA) [Mass fraction]99 %Ma Sand Work Phone: [facility]09-03-2024 11:30-0400Systolic blood gfwoyvxb38 mm[Hg]Ma Sand Work Phone: [facility]08-05-2024 11:16-0400Diastolic blood gctkylfg58 mm[Hg]Neda Hill PA-C Work Phone: [facility]08-05-2024 11:16-0400Systolic blood gnevwdcj09 mm[Hg]Neda Hill PA-C Work Phone: [facility]08-05-2024 11:020400Body odvqzg591.2 cmMindy Liz PA-C Work Phone: [facility]08-05-2024 11:02-0400Body mass index (BMI) [Ratio]43.08 kg/b5Kibgd Liz PA-C Work Phone: [facility]08-05-2024 11:020400Body temperature 97.7 [degF]Neda Liz PA-C Work Phone: [facility]08-05-2024 11:020400Body ctvwyh904.8 kgMindy Liz PA-C Work Phone: [facility]08-05-2024 11:02-0400Heart rate89 /min Neda Liz PA-C Work Phone: [facility]08-05-2024 11:02-0400Respiratory rate 16 /minMindy Liz PA-C Work Phone: [facility]08-05-2024 11:02-9982KkB8% (BldA) [Mass fraction]98 %Neda Liz PA-C Work Phone: [facility]07-25-2024 14:13-0400Body ccyhkq363.18 cmPrem[facility]07-25-2024 14:13-0400Body mass index (BMI) [Ratio]42.7 kg/o5JdvdeionqPrem[facility] Health [facility] Hospital07-25-2024 14:13-0400Body ekfsqbjvipt38.6 [degF][facility]07-25-2024 14:130400Body tufpcz267.83 kgPrem[facility] Health [facility]07-25-2024 14:13-0400Diastolic blood mm[Hg][facility]07-25-2024 14:13-0400 Heart rate75 /minPrem[facility] Health [facility] Hospital07-25-2024 14:13-0400Systolic blood rqhxmoxr302 mm[Hg][facility]07-08-2024 13:43-0400 Body tykmbdbozfs48.59 [degF]Ma Sand Work Phone: [facility]07-08-2024 13:43-0400Diastolic blood mm[Hg]Ma Sand Work Phone: [facility]07-08-2024 13:43-0400Heart rate73 /min Ma Sand Work Phone: [facility]07-08-2024 13:43-0400Respiratory rate 16 /minMa Sand Work Phone: [facility]07-08-2024 13:43-4324QsY7% (BldA) [Mass fraction]96 %Ma Sand Work Phone: [facility]07-08-2024 13:43-0400Systolic blood cwouztak03 mm[Hg]Ma Sand Work Phone: [facility]06-13-2024 13:55-0400Body fecamw145.18 cmPrem[facility] Health [facility]06-13-2024 13:55-0400Body ckqnzhadboi60.3 [degF][facility]06-13-2024 13:55-0400Diastolic blood abdgjvqc19 mm[Hg][facility]06-13-2024 13:55-0400Heart rate62 /minPrem[facility] Health [facility] Hospital06-13-2024 13:55-0400Systolic blood mm[Hg][facility]06-05-2024 14:44-0400Body tgsckunmaxm22 [degF]Ma Sand Work Phone: [facility]06-05-2024 14:44-0400Diastolic blood oalkkonc71 mm[Hg]Ma Sand Work Phone: [facility]06-05-2024 14:44-0400Heart rate97 /min Ma Sand Work Phone: [facility]06-05-2024 14:44-0400Respiratory rate 18 /minMa Sand Work Phone: [facility]06-05-2024 14:44-4968XfE3% (BldA) [Mass fraction]97 %Ma Sand Work Phone: [facility]06-05-2024 14:44-0400Systolic blood mm[Hg]Ma Sand Work Phone: [facility]05-29-2024 13:10-0400Body vyndhs945.18 cmPremier Health [facility]05-29-2024 13:10-0400Body mass index (BMI) [Ratio]43.2 kg/k4SoaaxtcqsPremier Health [facility] Hospital05-29-2024 13:10-0400Body mwqkrirheri19.3 [degF][facility]05-29-2024 13:10-0400Body .19 kgPrem[facility] Health [facility]05-29-2024 13:10-0400Diastolic blood rgmrmonp58 mm[Hg][facility]05-29-2024 13:10-0400 Heart rate74 /minPremier Health [facility] Hospital05-29-2024 13:10-0400Systolic blood mxytwdzl778 mm[Hg][facility]05-09-2024 10:48-0400 Body vaelvicfjya37 [degF]Ma Sand Work Phone: [facility]05-09-2024 10:48-0400Diastolic blood jkgbcpah99 mm[Hg]Ma Sand Work Phone: [facility]05-09-2024 10:48-0400Heart rate71 /min Ma Sand Work Phone: [facility]05-09-2024 10:48-0400Respiratory rate 18 /minMa Sand Work Phone: [facility]05-09-2024 10:48-6410VjU5% (BldA) [Mass fraction]97 %Ma Sand Work Phone: [facility]05-09-2024 10:48-0400Systolic blood jyogrlmp840 mm[Hg]Ma Sand Work Phone: [facility]05-01-2024 14:41-0400Body jzerbv454.93 kgPremier Health [facility]04-09-2024 10:34-0400Body .3 [degF]Ma Sand Work Phone: [facility]04-09-2024 10:34-0400Diastolic blood mm[Hg]Ma Sand Work Phone: [facility]04-09-2024 10:34-0400Heart rate68 /min Ma Sand Work Phone: [facility]04-09-2024 10:34-0400Respiratory rate 18 /minMa Sand Work Phone: [facility]04-09-2024 10:34-6545TmS0% (BldA) [Mass fraction]99 %Ma Sand Work Phone: [facility]04-09-2024 10:34-0400Systolic blood qacwybiu171 mm[Hg]Ma Sand Work Phone: [facility]03-14-2024 11:15-0400Body temperature 97.39 [degF]Ma Sand Work Phone: [facility]03-14-2024 11:15-0400Diastolic blood awzdmnhq28 mm[Hg]Ma Sand Work Phone: [facility]03-14-2024 11:15-0400Heart rate68 /min Ma Sand Work Phone: [facility]03-14-2024 11:15-0400Respiratory rate 18 /minMa Sand Work Phone: [facility]03-14-2024 11:15-0573DsY6% (BldA) [Mass fraction]98 %Ma Sand Work Phone: [facility]03-14-2024 11:15-0400Systolic blood nxgsgcmy61 mm[Hg]Ma Sand Work Phone: [facility]02-20-2024 11:49-0500Body temperature 97.5 [degF]Ma Sand Work Phone: [facility]02-20-2024 11:49-0500Diastolic blood ctjucjwp09 mm[Hg]Ma Sand Work Phone: [facility]02-20-2024 11:49-0500Heart rate83 /min Ma Sand Work Phone: [facility]02-20-2024 11:49-0500Respiratory rate 18 /minMa Sand Work Phone: [facility]02-20-2024 11:49-7574PfG8% (BldA) [Mass fraction]96 %Ma Sand Work Phone: [facility]02-20-2024 11:49-0500Systolic blood mm[Hg]Ma Sand Work Phone: [facility]02-20-2024 10:01-0500Diastolic blood fzigitwk72 mm[Hg]Lois Holm MD Work Phone: [facility]02-20-2024 10:01-0500 Systolic blood stmqwocr961 mm[Hg]Lois Holm MD Work Phone: [facility]02-20-2024 09:41-0500 Body zgddug541.2 cmLois Holm MD Work Phone: [facility]02-20-2024 09:41-0500 Body mass index (BMI) [Ratio]43.85 kg/n5NakthwLois Holm MD Work Phone: [facility]02-20-2024 09:41-0500 Body .01 kgLois Holm MD Work Phone: [facility]02-20-2024 09:41-0500 Heart rate71 /minLois Holm MD Work Phone: [facility]02-13-2024 14:48-0500 Body mass index (BMI) [Ratio]41.81 kg/b8NhscjayKade Early MD Work Phone: [phone] 14:48-0500Body .3 Ajit Early MD Work Phone: [facility] [phone] 08:45-0500Body voizph522.2 Tashamatt Jasmine 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 Work Phone: [facility]01-17-2024 08:45-0500 Body mass index (BMI) [Ratio]44.48 kg/m6Fwqvy Mitali 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 Work Phone: [phone]01-17-2024 08:45-0500 Body jelcwl981.82 kgCarselene Sharpeel 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 PRODUCT MARKETING Work Phone: [phone] [place], [place] 3042901-17-2024 08:45-0500 Diastolic blood egpdbkqr60 mm[Hg]Michelle Mitali 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 PRODUCT MARKETING Work Phone: [phone]01-17-2024 08:45-0500 Heart rate80 /minCarselene Sharpeel 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 PRODUCT MARKETING Work Phone: [facility]01-17-2024 08:45-0500 Systolic blood syuzuvfk391 mm[Hg]Michelle Jasmine 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 PRODUCT MARKETING Work Phone: [phone]01-03-2024 17:17-0500 Body iqjhli951.83 kgChristie Phan MD Work Phone: c[facility] CenterHofenm29-72-5899 14:42-0500Body fqlvbo124.19 John Phan MD Work Phone: cSum[facility] Medical CenterVpnojf63-67-1489 11:16-0400Body temperature 97.7 [degF]Ma Sand Work Phone: [facility]10-27-2023 11:16-0400Diastolic blood siytgoln77 mm[Hg]Ma Sand Work Phone: [facility]10-27-2023 11:16-0400Heart rate75 /min Ma Sand Work Phone: [facility]10-27-2023 11:16-0400Respiratory rate 16 /minMa Sand Work Phone: [facility]10-27-2023 11:16-0197SdD1% (BldA) [Mass fraction]96 %Ma Sand Work Phone: [facility]10-27-2023 11:16-0400Systolic blood mm[Hg]Ma Sand Work Phone: [facility]09-29-2023 10:56-0400Body lvxtcy433.2 cmVana Najera MD Work Phone: [facility]09-29-2023 10:56-0400Body temperature 97.39 [degF]Vera Najera MD Work Phone: [facility]09-29-2023 10:56-0400Body rvhjki596.75 kgVera Najera MD Work Phone: [facility]09-29-2023 10:56-0400Diastolic blood mm[Hg]Vera Najera MD Work Phone: [facility]09-29-2023 10:56-0400Heart nttf152 /minVera Najera MD Work Phone: [facility]09-29-2023 10:56-0400Respiratory rate 16 /minVera Najera MD Work Phone: [facility]09-29-2023 10:56-8524VqB2% (BldA) [Mass fraction]96 %Vera Najera MD Work Phone: [facility]09-29-2023 10:56-0400Systolic blood iaixsufy840 mm[Hg]Vera Najera MD Work Phone: [facility]09-01-2023 12:09-0400Diastolic blood xiynftup97 mm[Hg]Ma Sand Work Phone: [facility]09-01-2023 12:09-0400Systolic blood tqjtjiji003 mm[Hg]Ma Sand Work Phone: [facility]09-01-2023 12:08-0400Body temperature 97.59 [degF]Ma Sand Work Phone: [facility]09-01-2023 12:08-0400Heart jerl698 /minMa Sand Work Phone: [facility]09-01-2023 12:08-0400Respiratory rate 16 /minMa Sand Work Phone: [facility]09-01-2023 12:08-2968ZtN2% (BldA) [Mass fraction]97 %Ma Sand Work Phone: [facility]06-29-2023 11:00-0400Body temperature 97.2 [degF]Ma Sand Work Phone: [facility]06-29-2023 11:00-0400Diastolic blood mm[Hg]Ma Sand Work Phone: [facility]06-29-2023 11:00-0400Heart rate98 /min Ma Sand Work Phone: [facility]06-29-2023 11:00-0400Respiratory rate 16 /minMa Sand Work Phone: [facility]06-29-2023 11:00-5388EgI5% (BldA) [Mass fraction]98 %Ma Sand Work Phone: [facility]06-29-2023 11:00-0400Systolic blood bbmifzly127 mm[Hg]Ma Sand Work Phone: [facility]06-01-2023 11:51-0400Body rfelyf035.2 cmMa Sand Work Phone: [facility]06-01-2023 11:51-0400Body .66 kgMa Sand Work Phone: [facility]06-01-2023 11:51-0400Respiratory rate 16 /minMa Sand Work Phone: [facility]06-01-2023 10:50-0400Body ofmcas740.2 cmVana Najera MD Work Phone: [facility]06-01-2023 10:50-0400Body temperature 97 [degF]Vera Najera MD Work Phone: [facility]06-01-2023 10:50-0400Body .75 kgVera Naejra MD Work Phone: [facility]06-01-2023 10:50-0400Diastolic blood mm[Hg]Vera Najera MD Work Phone: [facility]06-01-2023 10:50-0400Heart rate78 /min Vera Najera MD Work Phone: [facility]06-01-2023 10:50-0400Respiratory rate 16 /minVera Najera MD Work Phone: [facility]06-01-2023 10:50-9645BmV9% (BldA) [Mass fraction]98 %Vera Najera MD Work Phone: [facility]06-01-2023 10:50-0400Systolic blood emacvsgx201 mm[Hg]Vera Najera MD Work Phone: [facility]05-04-2023 10:22-0400Body kqdzjo326.2 cmMa Sand Work Phone: [facility]05-04-2023 10:22-0400Body temperature 97 [degF]Ma Sand Work Phone: [facility]05-04-2023 10:22-0400Body .2 kgMa Sand Work Phone: [facility]05-04-2023 10:22-0400Diastolic blood keeltbnj84 mm[Hg]Ma Sand Work Phone: [facility]05-04-2023 10:22-0400Heart rate77 /min Ma Sand Work Phone: [facility]05-04-2023 10:22-0400Respiratory rate 16 /minHoda Sand Work Phone: [facility]05-04-2023 10:22-9168MfS5% (BldA) [Mass fraction]97 %Ma Sand Work Phone: [facility]05-04-2023 10:22-0400Systolic blood jmrjaefm132 mm[Hg]Ma Sand Work Phone: [facility]04-17-2023 14:03-0400Body yutlmi325.2 kgChristie Phan MD Work Phone: c[facility] Medical CenterCmwvgu68-93-6568 09:45-0400Body pannrj802.2 cmRebekah Rojas APRN.VP PRODUCT MARKETING Work Phone: [facility]04-06-2023 09:45-0400Body temperature 97.7 [degF]Rebekah Rojas APRN.VP PRODUCT MARKETING Work Phone: [facility]04-06-2023 09:45-0400Body ftrexh297.66 kgRebekah Rojas APRN.VP PRODUCT MARKETING Work Phone: [facility]04-06-2023 09:45-0400Diastolic blood gtretskd88 mm[Hg]Rebekah Rojas APRN.VP PRODUCT MARKETING Work Phone: [facility]04-06-2023 09:45-0400Heart rate63 /min Rebekah Rojas APRN.VP PRODUCT MARKETING Work Phone: [facility]04-06-2023 09:45-0400Respiratory rate 16 /minRebekah Rojas APRN.VP PRODUCT MARKETING Work Phone: [place] [address]-06-2023 09:45-5561KwF1% (BldA) [Mass fraction]96 %Rebekah Rojas APRN.VP PRODUCT MARKETING Work Phone: [facility]04-06-2023 09:45-0400Systolic blood czqyfqor967 mm[Hg]Rebekah Rojas APRN.VP PRODUCT MARKETING Work Phone: [facility]12-28-2022 13:28-0500Body zbmaxl836.2 Semaj Najera MD Work Phone: [facility]12-28-2022 13:28-0500Body temperature 97.7 [degF]Vera Najera MD Work Phone: [facility]12-28-2022 13:28-0500Diastolic blood mm[Hg]Vera Najera MD Work Phone: [facility]12-28-2022 13:28-0500Heart rate93 /min Vera Najera MD Work Phone: [facility]12-28-2022 13:28-0500Respiratory rate 16 /minVera Najera MD Work Phone: [facility]12-28-2022 13:28-5771WyO1% (BldA) [Mass fraction]97 %Vera Najera MD Work Phone: [facility]12-28-2022 13:28-0500Systolic blood mm[Hg]Vera Najera MD Work Phone: [facility]10-26-2022 10:49-0400Body pnoezv622.2 Semaj Najera MD Work Phone: [facility]10-26-2022 10:49-0400Body temperature 97.81 [degF]Vera Najera MD Work Phone: [facility]10-26-2022 10:49-0400Body loscxt987.4 kgVera Najera MD Work Phone: [facility]10-26-2022 10:49-0400Diastolic blood mm[Hg]Vera Najera MD Work Phone: [facility]10-26-2022 10:49-0400Heart rate86 /min Vera Najera MD Work Phone: [facility]10-26-2022 10:49-0400Respiratory rate 16 /minVera Najera MD Work Phone: [facility]10-26-2022 10:49-9194ZsS2% (BldA) [Mass fraction]98 %Vera Najera MD Work Phone: [facility]10-26-2022 10:49-0400Systolic blood jiksesia280 mm[Hg]Vera Najera MD Work Phone: [facility]10-17-2022 11:41-0400Body nazvhx288.2 cmChristie Phan MD Work Phone: [phone] Health W[facility] Ritt[facility] Medical CenterTwoqoj92-66-6374 11:41-0400Body ejsney887.49 kgChristie Phan MD Work Phone: [phone] Health Wadsworth - Rittman Medical CenterUxjevk75-88-9639 11:41-0400Diastolic blood fmryuxix371 mm[Hg]Christie Phan MD Work Phone: [phone] Health W[facility] - Ritt[facility] Medical CenterEyrebf05-11-0585 11:41-0400Systolic blood qtgeqmfd000 mm[Hg]Christie Phan MD Work Phone: [phone] Health Wad[facility] - Rittman Medical CenterPfcddn54-39-8019 10:39-0400Body boamie649.2 cmVana Najera MD Work Phone: [facility]10-12-2022 10:39-0400Body temperature 97.5 [degF]Vera Najera MD Work Phone: [facility]10-12-2022 10:39-0400Body jqfabe327.76 kgVera Najera MD Work Phone: [facility]10-12-2022 10:39-0400Diastolic blood crggulkw19 mm[Hg]Vera Najera MD Work Phone: [facility]10-12-2022 10:39-0400Heart rate79 /min Vera Najera MD Work Phone: [facility]10-12-2022 10:39-0400Respiratory rate 16 /minVera Najera MD Work Phone: [facility]10-12-2022 10:39-9088HrS4% (BldA) [Mass fraction]99 %Vera Najera MD Work Phone: [facility]10-12-2022 10:39-0400Systolic blood hekcphjm543 mm[Hg]Vera Najera MD Work Phone: [facility]07-06-2022 16:00-0400Body evehzz392.91 cmMichaesurya Blank Other [employer] Other 07-06-2022 16:00-0400Body mass index (BMI) [Ratio] 37.68 kg/h7Mjexcxs Blank Other [employer] Other 07-06-2022 16:00-0400Body ksohortxhbq96.4 [degF] Edgardo Baer Other [employer] Other 07-06-2022 16:00-0400Body .5 kgMichael Blank Other [employer] Other 07-06-2022 16:00-0400Diastolic blood yrpfnkdc53 mm[Hg] Edgardo Baer Other [employer] Other 07-06-2022 16:00-0400Systolic blood saicqgwn257 mm[Hg] Edgardo Baer Other [employer] Other 06-03-2022 08:18-0400Body qwwric878.86 kgLynne Ni MD Work Phone: [facility]06-03-2022 08:18-0400Diastolic blood itpahson56 mm[Hg]Lynne Ni MD Work Phone: [phone]06-03-2022 08:18-0400Heart rate72 /min Lynen Ni MD Work Phone: [facility]06-03-2022 08:18-0400Systolic blood fumjnbtl827 mm[Hg]Lynne Ni MD Work Phone: [facility]05-25-2022 15:45-0400Body ztsyxb594.91 cmMichael Blank Other [employer] Other 05-25-2022 15:45-0400Body mass index (BMI) [Ratio] 38.31 kg/e7Txtvcbt Blank Other [employer] Other 05-25-2022 15:45-0400Body uqaqllhexpa03.1 [degF] Edgardo Blank Other [employer] Other 05-25-2022 15:45-0400Body irmbhs484.32 kgMichael Blank Other [employer] Other 05-25-2022 15:45-0400Diastolic blood nnvqudut67 mm[Hg] Edgardo Blank Other [employer] Other 05-25-2022 15:45-0400Systolic blood tcutsxqq014 mm[Hg] Edgardo Blank Other [employer] Other 04-21-2022 15:15-0400Body taqpzf439.91 cmMichael Blank Other [employer] Other 04-21-2022 15:15-0400Body mass index (BMI) [Ratio] 37.99 kg/x1Oyxvoaarodrick Baer Other [employer] Other 04-21-2022 15:15-0400Body pwmutprgmlg68.9 [degF] Edgardo Baer Other [employer] Other 04-21-2022 15:15-0400Body mtavtj903.41 kgMichaesurya Baer Other [employer] Other 04-21-2022 15:15-0400Diastolic blood eynbqciy76 mm[Hg] Edgardo Baer Other [employer] Other 04-21-2022 15:15-0400Systolic blood rigzidcd905 mm[Hg] Edgardo Baer Other [employer] Other 05-17-2021 12:45-0400Diastolic blood mm[Hg] [facility] Work Phone: 1(303) 924-257105-17-2021 12:45-0400Heart rate68 /minStv [facility] Work Phone: [phone]) [phone] 12:45-8765FtT3% (BldA) [Mass fraction]99 % [facility] Work Phone: 1(760) 405-700205-17-2021 12:45-0400Systolic blood jbfnkxki555 mm[Hg] [facility] Work Phone: 1(209) 475-400405-17-2021 10:45-0400Respiratory rate22 /minStv [facility] Work Phone: 1(997) 541-897205-17-2021 09:01-0400Body vzqcwa461.2 cmStv [facility] Work Phone: 1([phone]) [phone] 09:01-0400Body mass index (BMI) [Ratio] 36.65 kg/m2Stv [employer] Work Phone: 1(243) 736-375405-17-2021 09:01-0400Body vaduneubfbe25.81 [degF]Stv A [employer] Work Phone: 1(440) 224-777805-17-2021 09:01-0400Body zfzvsi241.14 kgStv [employer] Work Phone: Encounters Encounter DateEncounter TypeCare ProviderFacilityStart: 03-13-2025 End: 77-88-3824trcohxvcyySolfev Sue Cramer EDUCATION ANALYST-C Work Phone: [phone])019-7189063-6879-[facility] Pain MgmtStart: 03-13-2025 End: 84-29-4832Rdqiaao encounter procedureSbobbi Kang MD-[facility] Work Phone: Start: 03-09-2025 End: 53-23-2380mcstpkreraMwsbfq Sue Cramer EDUCATION ANALYST-C Work Phone: -[facility] HospStart: 03-09-2025 End: 21-97-6662Iztttojw ReferredGay De La Torre VP PRODUCT MARKETING-[facility] Path Spec [facility] HospStart: 03-03-2025 End: 67-90-5992fxqqzyixlaGlucqe Sue Cramer EDUCATION ANALYST-C Work Phone: [facility] Work Phone: Start: 03-03-2025 End: 52-79-6544Ilcczlpe ReferredJose Hays DO-[facility] Start: 03-02-2025 End: 26-35-7249Fcgtcejcf to same day surgery Pau Blum MD-Surgery [facility] HealthStart: 03-02-2025 End: 93-59-7434erewcvjugcKhmsyx Sue Cramer EDUCATION ANALYST-C Work Phone: [facility] Work Phone: Start: 03-02-2025 End: 01-06-9973Xmrltsrr Result EncounterTerence Blum MD Work Phone: noms External Department UnsolicitedStart: 03-02-2025 End: 64-35-3731Repbxgri Result EncounterTerence Pacheco MD Work Phone: noms External Department UnsolicitedStart: 02-28-2025 End: 30-10-1248aouugzsycaCpovvy Sue Cramer EDUCATION ANALYST-C Work Phone: [facility] Work Phone: Start: 02-28-2025 End: 69-54-1128Qnpksph encounter procedureRyjuancarlos Bandar Batista [facility] Work Phone: Start: 02-28-2025 End: 69-25-7617Ivutct outpatient new 45 minutesAllorena Blum MD Work Phone: noms Surgical AssociatesComment on above:Pilonidal abscess (Primary Dx); Pilonidal cystStart: 02-28-2025 End: 84-77-0785dnjkeikzboVCIKMS VARGAS VNot AvailableStart: 02-26-2025 End: 96-01-3910tzusnylafxKglyia Sue Cramer EDUCATION ANALYST-C Work Phone: [facility] Work Phone: Start: 02-26-2025 End: 54-23-6559Yucqljsi ReferredDahortencia Ji MD-[facility] Start: 02-21-2025 End: 46-49-5600ucjqgvzgmmTGVDR ABHYANKARFacility:[facility] Hospitaltart: 02-14-2025 End: 24-61-0227Aopoqs outpatient visit 15 minutesEmjennifer English MD Work Phone: noms [place] DermatologyComment on above:Pilonidal cyst (Primary Dx); Hidradenitis suppurativaStart: 02-14-2025 End: 55-55-9796mzvwqdeiiwXNOMI A PETSTEPHANIEINot AvailableStart: 02-14-2025 End: 01-01-9344Tbfmekfernanda English MD Work Phone: [facility] [place] DermatologyStart: 02-14-2025 End: 49-64-6340Mskekcmaranda English MD Work Phone: NOLF [place] DermatologyStart: 02-14-2025 End: 93-86-7612kdfogizhlsUsihqt Sue Cramer EDUCATION ANALYST-C Work Phone: [facility] Work Phone: Start: 02-14-2025 End: 43-44-5246Rzmybwf encounter procedureMargie Arnett NP-[facility] Work Phone: Start: 02-08-2025 End: 08-78-0080ftifebrhrqQSJIDMHT TSAIFacility:[facility] Hospitaltart: 01-31-2025 End: 50-72-9524Iqkdgqkza to same day surgery centerSbobbi Kang MD-[facility] Work Phone: Start: 01-31-2025 End: 67-38-4467lblldjhcgyAswzlk Sue Cramer EDUCATION ANALYST-C Work Phone: [facility] Work Phone: Start: 51-83-3771Ocq-patient / Non-visitSbobbi Kang MD-[facility] Work Phone: Start: 01-26-2025 End: 78-94-1151kzqdwqvgqiMDX RAMEYNot AvailableStart: 01-24-2025 End: 58-23-6386qubzjzuptpTnwgn [address] [place] Work Phone: Hematology/OncologyComment on above:Frequent infections (Primary Dx); Hypogammaglobulinemia (HCC); Bilateral leg weakness; Discoid lupus erythematosus; Elevated sed rate; Megaloblastic anemia due to vitamin B12 deficiencyStart: 01-18-2025 End: 60-31-3953Ijzjntxvz encounterLynne Ni MD Work Phone: RheumatologyComment on above:ResultsStart: 01-17-2025 End: 27-73-1543mfssfjapgnWusyrb Sue Cramer EDUCATION ANALYST-C Work Phone: [facility] Work Phone: Start: 01-17-2025 End: 86-09-7241Jaunxpv encounter procedureMargie Arnett NP-[facility] Work Phone: Start: 01-11-2025 End: 27-51-0905jqbxelmgjjTgrpj [address] [place] Work Phone: Hematology/OncologyComment on above:Other systemic lupus erythematosus with other organ involvement (HCC) (Primary Dx); Elevated LFTs; Anemia of chronic disease; Elevated sed rate; Elevated C-reactive protein (CRP); Vitamin D deficiency; Vitamin B12 deficiency; Screening-pulmonary TBStart: 12-27-2024 End: 49-41-9414iwlglwpukvSWEIS ABHYANKARFacility:[facility] Hospitaltart: 12-14-2024 End: 25-02-8002Ppzge [facility] Work Phone: NeurologyComment on above:CMNStart: 12-14-2024 End: 26-75-7666wntufxmfpuJqwgk [address] [place] Work Phone: Hematology/OncologyComment on above:Other systemic lupus erythematosus with other organ involvement (HCC) (Primary Dx)Start: 12-12-2024 End: 13-30-3521Snfpkwr encounter Claudia Batista APRN-[facility] Work Phone: Start: 11-30-2024 End: 33-18-7509Ywlkus-up encounterVaibhav Carvalho APRN.VP PRODUCT MARKETING Work Phone: Hematology/OncologyComment on above:ResultsStart: 11-30-2024 End: 20-64-9253rlxsmxllojBtjuzn Sue Cramer EDUCATION ANALYST-C Work Phone: [facility] Work Phone: Start: 11-30-2024 End: 11-08-5782Mwucjrc encounter procedureMargie Arnett NP-[facility] Work Phone: Start: 11-29-2024 End: 11-77-9389Uvpgjp outpatient visit 25 minutesTodddane Hernandezjulia RODRIGUEZ Work Phone: Hematology/OncologyComment on above: Hypogammaglobulinemia (HCC) (Primary Dx); Vitamin B12 deficiency; Other iron deficiency anemia; Malaise and fatigue; Shortness of breath; Other specified disorders of breast; Pre-diabetes; Gastro-esophageal reflux disease without esophagitisStart: 11-29-2024 End: 01-84-4263cikxwghpgsQjmji 3 [place] Work Phone: Hematology/OncologyComment on above:Elevated sed rate (Primary Dx); Megaloblastic anemia due to vitamin B12 deficiency; Frequent infections; Hypogammaglobulinemia (HCC); Bilateral leg weakness; Discoid lupus erythematosusStart: 11-23-2024 End: 32-00-2909Vzsfus outpatient visit 25 minutesMelissa WARREN Work Phone: [facility] DERMComment on above:Hidradenitis suppurativa (Primary Dx); Pain; Acne vulgarisStart: 11-23-2024 End: 79-65-5711ecbgsfymugQFKLX NORTHEIMNot AvailableStart: 21-83-0504nvdzuuvmkr Janes BarfieldFacility:[facility] Hospitaltart: 11-22-2024 Registered Sofia BABB CredibleStart: 11-21-2024 End: 84-42-1578ubxqsibnsdXpxkmi Sue Cramer NP-C Work Phone: [facility] Work Phone: Start: 11-21-2024 End: 54-21-7694Hvcmofd encounter procedureSbobbi Kang MD-[facility] Work Phone: Start: 45-13-1785Uvo-patient / Non-visitSbobbi Kang MD-[facility] Work Phone: Start: 11-20-2024 End: 48-46-8905Gkvkgubbk encounterVaibhav Carvalho APRN.VP PRODUCT MARKETING Work Phone: Hematology/OncologyComment on above:Lab OrdersStart: 11-16-2024 End: 10-98-5557evelwniryjKgnns [address] [place] Work Phone: Hematology/OncologyComment on above:Other systemic lupus erythematosus with other organ involvement (HCC) (Primary Dx)Start: 11-15-2024 End: 12-15-5804Yuwwyycpk encounterCesilia Whalen [facility] Work Phone: [facility]ARM[facility] -3Start: 11-13-2024 End: 07-40-6510Rpypydw encounter procedureSbobbi Kang MD-[facility] Work Phone: Start: 10-31-2024 End: 03-24-5550shemuwhlasGltsr 2 [place] Work Phone: Hematology/OncologyComment on above:Elevated sed rate (Primary Dx); Megaloblastic anemia due to vitamin B12 deficiency; Frequent infections; Hypogammaglobulinemia (HCC); Bilateral leg weakness; Discoid lupus erythematosusStart: 10-19-2024 End: 28-49-4090gtvavukbrmFccab [address] [place] Work Phone: Hematology/OncologyComment on above:Other systemic lupus erythematosus with other organ involvement (HCC) (Primary Dx)Start: 10-17-2024 End: 09-06-2006hhadtgrpagKLJTVLS M HOYFacility:[facility] Hospitaltart: 10-07-2024 End: 56-89-2153Cnhocbh encounter procedureLynne Ni MD Work Phone: RheumatologyComment on above:Other systemic lupus erythematosus with other organ involvement [...] disease; 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; Bilateral wrist painStart: 10-07-2024 End: 92-61-3005Zfgwwmbljsyv consultation with patientLynne Ni MD Work Phone: RheumatologyStart: 10-07-2024 End: 80-56-2994gqudzafwnhVMBYAPHP TSAIFacility:[facility] Hospitaltart: 10-06-2024 End: 67-31-1487Xegbsizal encounterLynne Ni MD Work Phone: [facility] HospitaltologyComment on above:ResultsStart: 2024 End: 06-82-0847bfxnhmdmebXugch [address] [place] Work Phone: Hematology/OncologyComment on above:Other systemic lupus erythematosus with other organ involvement (HCC) (Primary Dx)Start: 10-02-2024 End: 85-31-4625dgfhyawvesLgtjy [address] [place] Work Phone: Hematology/OncologyComment on above:Frequent infections (Primary Dx); Hypogammaglobulinemia (HCC); Bilateral leg weakness; Discoid lupus erythematosus; Elevated sed rate; Megaloblastic anemia due to vitamin B12 deficiency; Elevated LFTs; Anemia of chronic disease; Elevated C-reactive protein (CRP); Vitamin D deficiencyStart: 09-20-2024 End: 47-31-9189Hcrgrewdg PharmacyAidee Quintanilla [facility] Specialty PharmacyComment on above:SPP Inflammatory Conditions - Medication Refill (Benlysta)Start: 09-19-2024 End: 32-49-7486zlnsrwmroyYYSRAFY M HOYFacility:[facility] Hospitaltart: 09-19-2024 End: 04-44-8579Blfpvih encounter Ligia Arroyo [facility] Work Phone: gmit MAIN WALKERComment on above:Fibromyalgia (Primary Dx); Family history of disease of aorta; Family history of cancerGeneralized articular hypermobility (Primary Dx); Chronic pain syndrome; Discoid lupus erythematosus; Family history of pneumothorax in son; Family history of cancer; Family history of mild aortic dilation in daughterStart: 09-19-2024 End: 70-75-5205quciavciinKMSYGAZB TSAIFacility:[facility] Hospitaltart: 09-18-2024 End: 32-42-5914Ewhqaumwn encounterVera Najera MD Work Phone: Cancer Appts MCComment on above:Future Appointment Start: 09-18-2024 End: 61-98-1489sqtpodhuyvMyuxb [address] Work Phone: Hematology/OncologyComment on above:Other systemic lupus erythematosus with other organ involvement (HCC) (Primary Dx)Refill RequestStart: 09-07-2024 End: 50-00-8022Ggdces-up encounterVaibhav Carvalho APRN.CNP Work Phone: Hematology/OncologyComment on above:ResultsStart: 09-06-2024 End: 68-21-5282Yiybywj encounter Gamal Kang MD-[facility] Work Phone: Start: 09-06-2024 End: 78-13-4172Foadnysco encounterFearnaldo Samuel RNHematology/OncologyComment on above:Medication Preauthorization; AppointmentStart: 09-06-2024 End: 47-12-8565egtnlapyqsQsojd [address] [place] Work Phone: Hematology/OncologyComment on above:Frequent infections (Primary Dx); Hypogammaglobulinemia (HCC); Bilateral leg weakness; Discoid lupus erythematosus; Elevated sed rate; Megaloblastic anemia due to vitamin B12 deficiencyStart: 09-06-2024 End: 16-57-8407Ueennc outpatient visit 25 minutesVaibhav Carvalho APRN.CNP Work Phone: Hematology/OncologyComment on above: Hypogammaglobulinemia (HCC) (Primary Dx); Vitamin B12 deficiency; Other iron deficiency anemia; Megaloblastic anemia due to vitamin B12 deficiencyStart: 09-06-2024 End: 02-72-0190vipcavsgznFFHUKM ROODFacility:[facility] Hospitaltart: 09-04-2024 End: 70-05-2319Dafrnb outpatient visit 25 minutesGordo Barfiedl MD Work Phone: noms [facility]CT[facility]UTomcorewell [facility] on above:Thyroid nodule (CMS/HCC) (Primary Dx); LPRD (laryngopharyngeal reflux disease)Start: 09-04-2024 End: 75-89-8684lewhohzpcpHEIXFU H TIMMISNot AvailableStart: 09-04-2024 End: 04-60-2090Cncdlr flowsheetGordo Barfield MD Work Phone: [facility]Start: 09-04-2024 End: 45-05-0216Nmdqkb Bell Barfield MD Work Phone: [facility]Start: 09-01-2024 End: 49-07-7576RopqjeMcigfawk Tsai MD Work Phone: RheumatologyComment on above:Refill RequestStart: 08-29-2024 End: 98-33-9620xhxlpneqolJYCMCJM M HOYFacility:[facility] Hospitaltart: 08-28-2024 End: 27-71-9345Kmyfqhohc encounterVaibhav Carvalho APRN.CNP Work Phone: Hematology/OncologyComment on above:Lab OrdersStart: 08-24-2024 End: 06-60-4101Jlnsblijl Result EncounterGordo Barfield MD Work Phone: noms External Department UnsolicitedStart: 08-24-2024 End: 21-56-2742Quwxefvva Result EncounterGordo Barfield MD Work Phone: noms External Department UnsolicitedStart: 08-22-2024 End: 89-39-2329gubykmjsepFantdz Sue Cramer NP-C Work Phone: [facility] Work Phone: Start: 08-22-2024 End: 98-29-6808Kokluvb encounter procedurePamela Britt EDUCATION ANALYST-C Work Phone: [facility] Work Phone: Start: 08-17-2024 End: 99-29-5643Jrtohgvgd PharmacyCaljewelsdane BallesterosDwight [facility] Specialty PharmacyComment on above:SPP Inflammatory Conditions - Medication Refill (Benlysta)Start: 08-08-2024 End: 32-06-2527Qtkplxbqi encounterFearnaldo Samuel RNHematology/OncologyComment on above:Patient QuestionStart: 08-08-2024 End: 32-90-6337nqzryhwicgKaedn 3 Gabbi Work Phone: Hematology/OncologyComment on above:Elevated sed rate (Primary Dx); Megaloblastic anemia due to vitamin B12 deficiency; Frequent infections; Hypogammaglobulinemia (HCC); Bilateral leg weakness; Discoid lupus erythematosusStart: 08-03-2024 End: 70-85-0539BotbnrXvro Rozman PA-C Work Phone: OtolaryngologyComment on above:Med Change Request Start: 07-31-2024 End: 45-99-0300nhxdfkzfsuRjmdmkArcelia GALEANO Work Phone: [facility] Work Phone: Start: 07-31-2024 End: 71-47-7761Ippnauu encounter procedureGay GALEANO Work Phone: [facility] Work Phone: Start: 07-26-2024 End: 78-03-3816Uowipj outpatient visit 25 minutesLois Holm MD Work Phone: uh [facility] HospitalComment on above:Sinus tachycardia (Primary Dx); Shortness of breath; Paroxysmal supraventricular tachycardia (CMS-HCC); Essential hypertension; Obstructive sleep apnea syndrome; Morbid obesity (Multi); Current smokerStart: 07-26-2024 End: 58-67-1628azjujcfmwdQMDGKX M [facility] AmbulatoryStart: 07-25-2024 End: 76-33-3483Oxznrr flowsheetEmjennifer English MD Work Phone: noms [facility] DERMStart: 07-25-2024 End: 84-81-0510Cmbuut flowsheetEmjennifer English MD Work Phone: noms [facility] DERMStart: 07-25-2024 End: 55-35-3566Snsfnm outpatient visit 25 minutesEmjennifer English MD Work Phone: noms [facility] DERMComment on above:Hidradenitis suppurativa (Primary Dx); Other seborrheic dermatitis; Lupus erythematosus tumidus (CMS/HCC); Rash and other nonspecific skin eruption; Capillary angioma; Neoplasm of uncertain behavior of skinStart: 07-25-2024 End: 40-37-9139Ztzmzgbek PharmacyCalhugo Quintanilla [facility] Specialty PharmacyComment on above:SPP Inflammatory Conditions - Medication Refill (Benlysta)Start: 07-20-2024 End: 34-48-4922Dkagntsvthwf consultation with Mich Victoria DO Work Phone: Infectious DiseaseStart: 07-20-2024 End: 92-62-8946qrskcwaacrEitlbjk Lehman DO Work Phone: Infectious DiseaseComment on above:Nipple discharge (Primary Dx); Other systemic lupus erythematosus with other organ involvement (HCC); On prednisone therapy; Long-term use of PlaquenilStart: 11-54-1049Lbj-patient / Non-visitGay De La Torre NP-C Work Phone: [facility] Work Phone: Start: 07-19-2024 End: 70-35-3510Fconsevbw to same day surgery centerGay De La Torre NP-C Work Phone: [facility] Work Phone: Start: 07-19-2024 End: 23-70-6922vakycwawqtHndmit Sue Cramer NP-C Work Phone: [facility] Work Phone: Start: 07-12-2024 End: 67-42-3357wiuksbvapzXJVP ROZMANFacility:[facility] Hospitaltart: 07-12-2024 End: 19-17-2804Pswimfu encounter procedureMarky Gasca PA-C Work Phone: OtolaryngologyComment on above:LPRD (laryngopharyngeal reflux disease); Dry mouth; Current smoker; Abnormal mouth sensationStart: 07-11-2024 End: 56-09-6457gdovmagsctDdmnw 3 Gabbi Work Phone: Hematology/OncologyComment on above:Elevated sed rate (Primary Dx); Megaloblastic anemia due to vitamin B12 deficiency; Frequent infections; Hypogammaglobulinemia (HCC); Bilateral leg weakness; Discoid lupus erythematosusStart: 07-10-2024 End: 36-40-1134fsjvakojbcDeibsywjvAkron Children's Hospital Work Phone: Start: 07-10-2024 End: 54-64-7834Fyxutmy encounter procedureDuke University Hospital Physician GroupAt[facility] Work Phone: Start: 07-09-2024 End: 20-53-3702Gldgoffqc encounterLynne Ni MD Work Phone: RheumatologyComment on above:ResultsStart: 06-30-2024 End: 63-10-1842nykffailnqKJNYWYAI TSAIFacility:[facility] Hospitaltart: 06-29-2024 End: 04-77-3152Xuypadiaq PharmacyCalhugo Quintanilla [facility] Specialty PharmacyComment on above:SPP Inflammatory Conditions - Medication Refill (Benlysta)Start: 06-20-2024 End: 00-11-5590nlmexjctmiCqx ProviderCancer Appts MCComment on above:Iron InfusionsStart: 06-20-2024 End: 26-09-1453H-mail [facility] from [facility] ProviderCancer Appts MCStart: 06-20-2024 End: 86-99-5038Jnwcrcm encounter procedureLynne Ni MD Work Phone: RheumatologyComment on above:FlairStart: 06-16-2024 End: 95-20-9358Fqjtpvkcj encounterVaibhav Carvalho APRN.CNP Work Phone: Hematology/OncologyStart: 06-15-2024 End: 05-56-3968Igjikflpq encounterOly WARREN Work Phone: noms BCP OBStart: 06-14-2024 End: 82-92-7645Doqhrcq evaluation of patient and reportBreath Test Silverio Cp Nsg Wl Work Phone: [facility] Comment on above:Diarrhea, unspecified type (Primary Dx); Abdominal pressureStart: 06-13-2024 End: 25-56-2061Ucxsup outpatient visit 25 minutesVaibhav Carvalho APRN.CNP Work Phone: Hematology/OncologyComment on above:Megaloblastic anemia due to vitamin B12 deficiency (Primary Dx); Hypogammaglobulinemia (HCC); Positive blood cultures; Malaise and fatigue; SOB (shortness of breath)Start: 06-13-2024 End: 63-78-9851rurqcuqbwyJvkw M Freeman Art TherapistArts & MedicineComment on above:Art TherapyElevated sed rate (Primary Dx); Megaloblastic anemia due to vitamin B12 deficiency; Hypogammaglobulinemia (HCC); Frequent infections; Bilateral leg weakness; Discoid lupus erythematosusStart: 06-12-2024 End: 61-67-3530PueyfPhaneuf Hospital Main Work Phone: NeurologyComment on above:CMNStart: 06-12-2024 End: 28-49-5920Hoyivytjo encounterVaibhav Carvalho APRN.CNP Work Phone: Hematology/OncologyComment on above:Lab OrdersStart: 06-06-2024 End: 25-11-8721Acjwob flowsheetOly WARREN Work Phone: noms BCP OBStart: 06-06-2024 End: 60-13-0482Hlghzl flowsheetOly WARREN Work Phone: noms [facility] OBStart: 06-06-2024 End: 24-27-5192Qzntmkurh Result EncounterOly WARREN Work Phone: noms External Department UnsolicitedStart: 06-06-2024 End: 45-26-6461Dlpdhtwvp PharmacySelect Medical Trihealth Rehabilitation Hospitalhugo Quintanilla [facility] Specialty PharmacyComment on above:SPP Inflammatory Conditions - Medication Refill (Benlysta)Start: 06-06-2024 End: 31-88-9314Hwwrwyy encounter procedureOly WARREN Work Phone: noms [facility] Work Phone: Start: 06-06-2024 End: 18-25-8867Xennpvur preventive med est patient 40-64yrsAmy Temo WARREN Work Phone: noms [facility] OBComment on above:Well woman exam with routine gynecological exam; Breast cancer screening by mammogram; Breast noduleStart: 05-19-2024 End: 33-43-2045gycrariteiEeadz 3 Gabbi Work Phone: Hematology/OncologyComment on above:Frequent infections (Primary Dx); Megaloblastic anemia due to vitamin B12 deficiency; Elevated sed rate; Hypogammaglobulinemia (HCC); Bilateral leg weakness; Discoid lupus erythematosusStart: 05-16-2024 End: 01-05-3432Nwkshi Glenn Carvalho APRN.CNP Work Phone: Hematology/OncologyStart: 05-15-2024 End: 84-96-4213Trpqfe WorkLorgodwin LANEematology/OncologyStart: 05-12-2024 End: 81-16-9640Jvolzuqvs PharmacySelect Medical Trihealth Rehabilitation Hospitalhugo Quintanilla [facility] Specialty PharmacyComment on above:SPP Inflammatory Conditions - Medication Refill (Benlysta)Start: 04-28-2024 End: 07-38-8202Ubiraf OnlyTraamber Cotter LPNProMedica Physicians [facility] Comment on above:Peripheral vascular disease, unspecified (CMS-HCC) (Primary Dx); Cold extremities; Systemic lupus erythematosus ([facility]-HCC)Start: 04-26-2024 End: 90-78-2803pnmbzmqcyhOBPGY ABHYANKARFacility:[facility] Hospitaltart: 04-26-2024 End: 40-84-7272Owpcvqc evaluation of patient and reportMa Nurse Sawyer Marshall Work Phone: Hematology/OncologyComment on above:Elevated sed rate (Primary Dx); Megaloblastic anemia due to vitamin B12 deficiencyStart: 04-14-2024 End: 02-54-1790Xbeviebgu encounterNortTracy Medical Center Gastroenterology Work Phone: [facility] Comment on above:Patient Update; AppointmentStart: 04-11-2024 End: 01-98-2481Lzykqlnxy PharmacyCaluhgo Quintanilla [facility] Specialty PharmacyComment on above:SPP Inflammatory Conditions - Medication Refill (Benlysta)Start: 04-10-2024 End: 75-35-6622Coxojt flowsheetGordo Barfield MD Work Phone: noms ENT NORWALKStart: 04-10-2024 End: 62-60-9844Ojgkiz flowsheetGordo Barfield MD Work Phone: noms ENT KAYLEYtart: 04-10-2024 End: 66-84-9408Izpjawtuv encounterVera Najera MD Work Phone: Cancer Appts MCComment on above:AppointmentStart: 04-10-2024 End: 94-70-4695Irrfei outpatient visit 25 minutesHielyse Barfield MD Work Phone: noms ENT TANNERKComment on above:LPRD (laryngopharyngeal reflux disease) (Primary Dx); Acute otalgia, rightStart: 04-10-2024 End: 38-77-7564xrnkgjzbxiWDJLAL H TIMMISNot AvailableStart: 04-07-2024 End: 18-43-7481Qhduuo WorkLorgodwin Jaime LSWHematology/OncologyStart: 04-06-2024 End: 44-13-1924Ytxypgiyt Result EncounterOly Temo WARREN Work Phone: noms External Department UnsolicitedStart: 04-06-2024 End: 74-05-0524Kiqzfchbe Result EncounterOly Temo WARREN Work Phone: noms External Department UnsolicitedStart: 04-06-2024 End: 09-00-7725Hlcyte outpatient new 30 minutesMohamanatoliy Arciniega MD Work Phone: [facility]t Vascular SurgeryComment on above:Systemic lupus erythematosus (CMS-HCC) (Primary Dx); Cold extremities; Pain of lower extremity, unspecified laterality; Rheumatoid arthritis, involving unspecified site, unspecified whether rheumatoid factor present (CMS-HCC); Current smoker; 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Start: 04-03-2024 End: 78-33-0692MhejelIjlv J Bruner DO Work Phone: noms SWS FM 230Comment on above:Oral thrush (Primary Dx)Start: 04-02-2024 End: 55-04-7258Ivsjmgesi encounterLynne Ni MD Work Phone: RheumatologyComment on above:ResultsStart: 04-02-2024 End: 43-36-3545Jhittx outpatient visit 25 minutesPatennille Nichols DO Work Phone: noMS SWS UCComment on above:Oral thrush (Primary Dx) Start: 04-02-2024 End: 28-56-1359nxsmlkniwwMSYL J BRUNERNot AvailableStart: 03-31-2024 End: 70-76-7608Ewcmr [facility] Work Phone: NeurologyComment on above:CMNStart: 03-30-2024 End: 37-40-5212yrqeozhvujChvsrk Tabbaa MD Work Phone: [facility] Start: 03-27-2024 End: 86-06-5149xbwllxolikVzgcx Abhyankar MD Work Phone: Hematology/OncologyComment on above: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); High total serum IgM; JOSE RAFAEL (obstructive sleep apnea); Elevated sed rate; Hypogammaglobulinemia (HCC); Frequent infectionsStart: 03-27-2024 End: 78-96-2934Esqvwipexqeu consultation with Treasure Najera MD Work Phone: Hematology/OncologyStart: 03-27-2024 End: 98-44-7841lzwejclzsoKSHTH ABHYANKARFacility:[facility] Hospitaltart: 03-23-2024 End: 55-52-9490gkxqlbiipcGXY Da AvailableStart: 03-23-2024 End: 15-09-3217Diywws outpatient visit 15 minutesOly WARREN Work Phone: noms BCP OBComment on above:Abnormal uterine bleeding (AUB); Menorrhagia with regular cycleStart: 03-23-2024 End: 37-56-5038Hpqntq flowsSalbador WARREN Work Phone: noms [facility] OBStart: 03-23-2024 End: 61-97-4741Cxjizl flowsSalbador WARREN Work Phone: noms [facility] OBStart: 03-23-2024 End: 85-86-8122Qlorzid evaluation of patient and reportMa Nurse Sawyer Marshall Work Phone: Hematology/OncologyComment on above:Elevated sed rate (Primary Dx); Megaloblastic anemia due to vitamin B12 deficiencyStart: 03-23-2024 End: 69-06-5500ddvdbgdihyXHSZIKH M HOYFacility:[facility] Hospitaltart: 03-20-2024 End: 77-81-1394Rdectpqpg Rosalina Cooper MD Work Phone: [facility] Start: 03-18-2024 End: 75-58-5543kuobecivrwDMVXSKYR TSAIFacility:[facility] Hospitaltart: 03-18-2024 End: 32-49-1818Drmsstr encounter procedureMargaret Last MD Work Phone: RheumatologyComment on above:Other systemic lupus erythematosus with other organ involvement [...] status (HCC); Vitamin B12 deficiency; Discoid lupus erythematosusStart: 03-18-2024 End: 73-77-1791Noucnxhbbcys consultation with patientLynne Ni MD Work Phone: RheumatologyStart: 03-17-2024 End: 75-03-9199EszlgoYwematlx Tsai MD Work Phone: RheumatologyComment on above:Refill RequestStart: 03-16-2024 End: 67-98-2652Gvsimv flowsheetCorey Skip DO Work Phone: NOMF BCP OBStart: 03-16-2024 End: 02-15-6126Wohijy flowsheetCorey Skip DO Work Phone: NOKH BCP OBStart: 03-16-2024 End: 90-89-4897Vfywfk outpatient visit 15 minutesCorey Skip DO Work Phone: NOMS BCP OBComment on above:Nipple dischargeStart: 03-16-2024 End: 88-40-2876daxjqpxujbYTAQM FAZIONot AvailableStart: 03-16-2024 End: 83-52-3791kalhiyppfqLA-C Gay De La Torre Work Phone: [facility] Work Phone: Start: 03-16-2024 End: 78-44-0663Ahaocsv encounter procedureWALESKA De La Torre Work Phone: [facility] Gastroenterology Work Phone: Start: 03-13-2024 End: 31-63-0027Sotynzobd PharmacyCalhugo Quintanilla [facility] Specialty PharmacyComment on above:SPP Inflammatory Conditions - Medication Refill (Benlysta - NCA 09/2024)Start: 03-08-2024 End: 94-83-9441nnjwvwjddiBXMD St. Elizabeth Hospitaltart: 03-07-2024 End: 04-70-1944Vlnjc [facility] Main Work Phone: NeurologyComment on above:cmnStart: 03-02-2024 End: 77-74-6137FnciswGbydnnumew M Graziani EDUCATION ANALYST Work Phone: [facility] NEURO 210Comment on above:Lumbosacral radiculopathy at L5; Degenerative disc disease, lumbar; Cervical radiculopathy at M6Ngusb: 02-28-2024 End: 80-36-5214nuwyykcngkJT-C Gay De La Torre Work Phone: [facility] Work Phone: Start: 02-28-2024 End: 71-50-5031Tpzmivl encounter procedureNP-C Gay De La Torre Work Phone: [facility] Pain Management Work Phone: Start: 02-22-2024 End: 56-39-0582Zdcadunao encounterOly Elam [facility] Work Phone: Genetic HealthcareComment on above:College Coach - Other (Eds scheduling)Start: 02-21-2024 End: 28-79-1707Gnhpism evaluation of patient and reportMa Nurse Sawyer Marshall Work Phone: Hematology/OncologyComment on above:Elevated sed rate (Primary Dx); Megaloblastic anemia due to vitamin B12 deficiencyStart: 02-18-2024 End: 85-59-7876Urxagtaau encounterLynne Ni MD Work Phone: RheumatologyStart: 40-77-0139Tbj-patient / Non-visit EDUCATION ANALYST-C Gay De La Torre Work Phone: [facility] Work Phone: Start: 02-16-2024 End: 35-24-5901Erdfvjmbz to same day surgery centerNP-C Gay De La Torre Work Phone: [facility] Work Phone: Start: 02-16-2024 End: 88-84-3095qvoenipgegOD-C Gay De La Torre Work Phone: [facility] Work Phone: Start: 02-15-2024 End: 32-18-4108Wydlduqop encounterLexus Heck APRN.CNP Work Phone: NeurologyComment on above:Orders (PAP RX.)Start: 02-14-2024 End: 76-64-6338Qnltzh-up encounterAidee Quintanilla [facility] Comment on above:SPP Inflammatory Conditions - Follow-up (Benlysta); Insurance Authorization ([place] Renewal Submitted)Start: 02-14-2024 End: 49-46-1689sjnucrrulxMwwrxikvmCeci Heck APRN.CNP Work Phone: NeurologyComment on above:JOSE RAFAEL (obstructive sleep apnea) (Primary Dx); Somnolence, daytimeSPP Inflammatory Conditions - Medication Refill (Benlysta - NCA 09/2024)Start: 02-14-2024 End: 87-87-7705Tpipxpzstoht consultation with Sara Heck APRN.CNP Work Phone: NeurologyStart: 02-09-2024 End: 28-25-4155Cuxhrj Kady Cuellar EDUCATION ANALYST Work Phone: [facility] NEUROLOGYStart: 02-09-2024 End: 12-17-9472Fqxidw flowsNapoleon Cuellar EDUCATION ANALYST Work Phone: noms NEUROLOGYStart: 02-09-2024 End: 75-50-8771Tikd/qhp telephone evaluation Cesilia Cuellar EDUCATION ANALYST Work Phone: noms [facility] NEURO 210Comment on above:Lumbosacral radiculopathy at L5 (Primary Dx); Degenerative disc disease, lumbar; Cervical radiculopathy at Q6Bkeka: 02-07-2024 End: 87-47-9766IxmintXedsvuznsi M Graziani EDUCATION ANALYST Work Phone: noms [facility] NEURO 210Comment on above:Autoimmune disease (CMS/HCC); Fibromyalgia; NumbnessStart: 01-28-2024 End: 10-86-5965onypbqoagbPwigcea Adilene DO Work Phone: [facility] Work Phone: Comment on above:Blood workStart: 01-28-2024 End: 54-61-4069Lafnovw encounter procedureDuke University Hospital [facility]ician [facility] Pain Management [place] Work Phone: Start: 01-27-2024 End: 02-52-6482Gqotvzsvlcdl consultation with Graciecaitlin Victoria DO Work Phone: Infectious DiseaseStart: 01-27-2024 End: 32-05-1511pjpkeyjwsvHzchpyc Adilene DO Work Phone: Infectious DiseaseComment on above:Pseudomonas infection (Primary Dx); Other systemic lupus erythematosus with other organ involvement (HCC); On prednisone therapy; Long-term use of PlaquenilStart: 01-25-2024 End: 66-89-0981Xonpjfz evaluation of patient and reportMa Nurse Sawyer Marshall Work Phone: Hematology/OncologyComment on above:Elevated sed rate (Primary Dx); Megaloblastic anemia due to vitamin B12 deficiencyStart: 01-20-2024 End: 02-20-5291OmiqmhDybbgvl W Bauer MD Work Phone: [facility] NEURO 210Comment on above:Degenerative disc disease, lumbar (Primary Dx); Lumbosacral radiculopathy at Q4Ojhfa: 01-18-2024 End: 89-29-4945Wietryovz PharmacyCalhugo Quintanilla [facility] Specialty PharmacyComment on above:SPP Inflammatory Conditions - Medication Refill (Benlysta)Start: 01-12-2024 End: 33-61-3727dhfxmfaocwCrqmdoey Tsai MD Work Phone: RheumatologyStart: 01-12-2024 End: 37-51-0856Yfkltnj encounter procedureLynne Ni MD Work Phone: RheumatologyComment on above:FlairStart: 12-30-2023 Telephone encounterLynne Ni MD Work Phone: RheumatologyComment on above:ResultsStart: 12-27-2023 Telephone encounterMinedy Hill PA-C Work Phone: Hematology/OncologyComment on above:ResultsStart: 12-27-2023 End: 36-74-4097Avcqkre evaluation of patient and reportMa Nurse Sawyer Marshall Work Phone: Hematology/OncologyComment on above:Elevated sed rate (Primary Dx); Megaloblastic anemia due to vitamin B12 deficiencyStart: 12-27-2023 End: 23-42-2604Bsonie outpatient visit 15 minutesMineyd Hill PA-C Work Phone: Hematology/OncologyComment on above:Megaloblastic anemia due to vitamin B12 deficiency (Primary Dx); Elevated sed rate; Obstructive sleep apnea syndromeStart: 12-24-2023 End: 43-91-6410psjfsrfsvpEHOZRQSouth [facility] AmbulatoryStart: 12-16-2023 End: 51-70-8493nabhwucxygWcakipbhiAkron Children's Hospital Work Phone: Start: 12-16-2023 End: 05-51-2045Sbawteo encounter procedureDuke [facility] Hospital [facility]ician [facility] Work Phone: Start: 24-11-0805Uyybcrpqi PharmacyCalhugo Quintanilla [facility] Specialty PharmacyComment on above:SPP Inflammatory Conditions - Medication Refill (Benlysta - NCA 09/2024)Start: 11-29-2023 End: 27-92-5074Cdspdcq evaluation of patient and reportMa Nurse Sawyer Sand Work Phone: Hematology/OncologyComment on above:Elevated sed rate (Primary Dx); Megaloblastic anemia due to vitamin B12 deficiencyStart: 75-93-3511oijolpsvbq Vera Najera MD Work Phone: Hematology/OncologyComment on above:Folic acidStart: 51-20-4629Hvutoueyg PharmacyCalhugo Quintanilla [facility] Specialty PharmacyComment on above:SPP Inflammatory Conditions - Medication Refill (Benlysta - NCA 09/2024) Start: 32-58-5081NjtncxYklhhknv Tsai MD Work Phone: RheumatologyComment on above:Refill RequestStart: 11-04-2023 End: 71-81-3323jintzlnjfgEkafpbjxjAkron Children's Hospital Work Phone: Start: 11-04-2023 End: 25-04-9836Nbcxyzw encounter procedureD[facility] Infectious Disease Work Phone: Start: 10-27-2023 End: 13-86-6356Xrnziao evaluation of patient and reportMa Nurse Sawyer Sand Work Phone: Hematology/OncologyComment on above:Elevated sed rate (Primary Dx); Megaloblastic anemia due to vitamin B12 deficiencyStart: 65-37-3074ijxrfotbgr Lynne Ni MD Work Phone: RheumatologyStart: 90-72-8107Wcoujyt encounter procedureLynne Ni MD Work Phone: RheumatologyComment on above:CdiffStart: 10-20-2023 End: 15-36-4323rtxylpgmztFgtflehgiAkron Children's Hospital Work Phone: Start: 10-20-2023 End: 53-07-8986Tevwhfs encounter procedureDuke University Hospital [facility]ician [facility] Infectious Disease Work Phone: Start: 11-58-4239Ryeqfkkki PharmacyFranklin County Memorial Hospital Specialty PharmacyComment on above:SPP Inflammatory Conditions - Medication Refill (Benlysta)Start: 10-05-2023 End: 08-46-4205Kczpjps encounter procedureLynne Ni MD Work Phone: eumatologyComment on above:Other systemic lupus erythematosus with other organ involvement [...] Bilateral hand pain; History of vitamin D deficiencyStart: 10-05-2023 End: 59-95-0721Yzdcmqactxoz consultation with patientLynne Ni MD Work Phone: RheumatologyStart: 09-30-2023 End: 02-37-4437Ezgrdug evaluation of patient and reportMa Nurse Sawyer Marshall Work Phone: Hematology/OncologyComment on above:Elevated sed rate (Primary Dx); Megaloblastic anemia due to vitamin B12 deficiencyStart: 09-22-2023 End: 26-81-6024Chvvvhr encounter [facility] Work Phone: Start: 32-86-3891Pmqurfgym PharmacyMary [facility] Specialty PharmacyComment on above:SPP Inflammatory Conditions - Medication Refill (Benlysta)Start: 09-09-2023 End: 99-92-8632vtlsdeoeyxSowhyTyler Najera MD Work Phone: Hematology/OncologyComment on above:Megaloblastic anemia due to vitamin B12 deficiency (Primary Dx); Obstructive sleep apnea syndrome; Chronic fatigue and malaise; High total serum IgM; JOSE RAFAEL (obstructive sleep apnea); Somnolence, daytimeStart: 09-09-2023 End: 47-56-4653Crbztpqlbsoe consultation with patientVera Najera MD Work Phone: SANDUSKYStart: 91-07-4543Bbeauvcel encounterMarjose a Ni MD Work Phone: RheumatologyComment on above:ResultsStart: 08-31-2023 End: 51-05-0682Omeinhd evaluation of patient and reportMa Nurse Sawyer Marshall Work Phone: Hematology/OncologyComment on above:Megaloblastic anemia due to vitamin B12 deficiency (Primary Dx); Elevated sed rateStart: 11-35-5654Nznszrpub PharmacyAidee Quintanilla [facility] Specialty PharmacyComment on above:SPP Inflammatory Conditions - Medication Refill (Benlysta )Start: 08-05-2023 End: 46-99-9826Rnwyixe evaluation of patient and reportMa Nurse Sawyer Marshall Work Phone: Hematology/OncologyComment on above:Megaloblastic anemia due to vitamin B12 deficiency (Primary Dx); Elevated sed rateStart: 49-18-4931Hhh-patient / Non-visitFirelands Physician Group-[facility] Gastroenterology Work Phone: Start: 65-60-1719eeuwtprzqqUefwaj Bradley [facility] MAINStart: 07-13-2023 End: 11-76-6358Luewiif evaluation of patient and reportMa Nurse Sawyer Joanna Work Phone: Hematology/OncologyComment on above:Megaloblastic anemia due to vitamin B12 deficiency (Primary Dx); Elevated sed rateSPP Inflammatory Conditions - Medication Refill (Benlysta ) Start: 07-13-2023 End: 50-63-2715Kwaxnl outpatient new 45 minutesLois Holm MD Work Phone: [facility] ClinicComment on above:Shortness of breath (Primary Dx); Paroxysmal supraventricular tachycardia; PAC (premature atrial contraction); Current smoker; Systemic lupus erythematosus, unspecified SLE type, unspecified organ involvement status (CMS/HCC); Palpitations; Obstructive sleep apnea syndrome; Morbid obesity (CMS/HCC); Bilateral lower extremity edemaStart: 07-06-2023 End: 38-87-7937Reffqm outpatient visit 25 minutesKade Early MD Work Phone: noms [facility] NEURO 210Comment on above:Autoimmune disease (CMS/HCC) (Primary Dx); Autonomic dysfunction; Lumbosacral radiculopathy; Bilateral leg weaknessStart: 61-22-0494Dtekf abstractingKade Early MD Work Phone: noms [facility] NEURO 210Start: 06-09-2023 End: 53-50-3593Lppjwf outpatient new 60 minutesCarol Surya Jasmine APRN-VP PRODUCT MARKETING Work Phone: [facility] CenterComment on above:Irregular heart rate (Primary Dx); Essential hypertension; Autonomic dysfunction; Obstructive sleep apnea syndrome; Primary hypertensionStart: 05-26-2023 End: 43-09-4622Eowqwv outpatient visit 40 minutesChristie Phan MD Work Phone: Integrated MedicineComment on above:Obesity, Class III, BMI >= 40 (Primary Dx); Other chronic painStart: 04-26-2023 End: 85-28-9071Mzzcda outpatient visit 40 minutesChristie Phan MD Work Phone: Integrative and Lifestyle MedicineComment on above: Obesity, Class III, BMI >= 40 (Primary Dx); FUO (fever of unknown origin); Other chronic painStart: 78-81-9196ugdpvojhraCbslowh Ruff MD Work Phone: Integrative and Lifestyle MedicineComment on above: PhentermineStart: 30-73-9341Nwasvujqa encounterEnma Hamm RN Hematology/OncologyComment on above:ResultsStart: 04-16-2023 End: 45-85-8753Spjoolb evaluation of patient and reportMa Nurse Sawyer Marshall Work Phone: Hematology/OncologyComment on above:Megaloblastic anemia due to vitamin B12 deficiency (Primary Dx); Elevated sed rateStart: 03-19-2023 End: 88-98-0311Iuvdpwn evaluation of patient and reportMa Nurse Sawyer Marshall Work Phone: Hematology/OncologyComment on above:Megaloblastic anemia due to vitamin B12 deficiency (Primary Dx); Elevated sed rateStart: 97-08-0191Gtfqn [facility] Work Phone: NeurologyComment on above:CMNStart: 03-11-2023 End: 84-96-0299Yklbvca evaluation of patient and reportNurse [facility] Nickie Work Phone: RheumatologyComment on above:Systemic lupus erythematosus, unspecified SLE type, unspecified organ involvement status (HCC) (Primary Dx)Start: 64-62-8640Kirfnfnic encounterLynne Ni MD Work Phone: RheumatologyComment on above:Results (Eye Exam)Start: 02-19-2023 End: 43-16-9937Adsxyxp evaluation of patient and reportMa Nurse Sawyer Marshall Work Phone: Hematology/OncologyComment on above:Megaloblastic anemia due to vitamin B12 deficiency (Primary Dx); Elevated sed rateStart: 02-19-2023 End: 02-37-3798Ltqmru outpatient visit 15 minutesVera Najera MD Work Phone: Hematology/OncologyComment on above:Megaloblastic anemia due to vitamin B12 deficiency (Primary Dx); Elevated sed rate; Chronic fatigue and malaise; High total serum IgM; JOSE RAFAEL (obstructive sleep apnea)Start: 06-87-7317GbbgdcBbxdjpzu Tsai MD Work Phone: RheuiltologyComment on above:Refill RequestStart: 02-04-2023 End: 88-33-4606qxpurszplsOnlcrmbd Tsai MD Work Phone: RheumatologyComment on above:Other systemic lupus erythematosus with other organ involvement [...] deficiency; Elevated sed rate; Bilateral wrist pain; USP current use of systemic steroids; Steroid-induced osteoporosis; 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Start: 66-25-5156Kwmyqaw encounter procedure Clinton Schroeder (Pharmacist)[facility] Specialty PharmacyComment on above:SPP Inflammatory Conditions - Treatment Referral (Benlysta); Insurance Authorization ([place] submissionpenniharika)Start: 95-99-3866Msodqjxns encounterLynne Ni MD Work Phone: eumatologyComment on above:Appointment; Orders; Medication AuthorizationStart: 02-04-2023 End: 03-82-8290Zwuaifhqvnmi consultation with patientLynne Ni MD Work Phone: [facility] HOSPITALtart: 74-01-6510JythghAaiuvtf Ruff MD Work Phone: Integrated MedicineComment on above:Refill Request Start: 24-15-6352Xqzbpsuzf encounterLynne Ni MD Work Phone: [facility] ServicesmatologyComment on above:ResultsStart: 01-22-2023 End: 69-09-2084Llejsyh evaluation of patient and reportMa Nurse Sawyer Marshall Work Phone: Hematology/OncologyComment on above:Megaloblastic anemia due to vitamin B12 deficiency (Primary Dx); Elevated sed rateStart: 23-88-6319Daschw Janice Najera MD Work Phone: Hematology/OncologyComment on above:Megaloblastic anemia due to vitamin B12 deficiency (Primary Dx); High total serum IgM; Elevated sed rateStart: 01-01-2023 End: 63-91-2674qmawrevjnoKkgfa Patadia MD Work Phone: AllergyComment on above:High total serum IgM (Primary Dx); Low serum IgG for age; Current smokerStart: 01-01-2023 End: 98-07-0110Qisniwyxtxns consultation with Robson Nelson MD Work Phone: [facility]Start: 15-64-9665Cmhnjz Christie Phan MD Work Phone: Integrated MedicineComment on above:Refill Request Start: 38-25-1357Ripdpuluk encounterLidia Argueta RN Work Phone: Hematology/OncologyComment on above:Care Coordination (appointment)Start: 12-17-2022 End: 98-91-2120ohtfigytypNfsemKathy Rojas APRN.CNP Work Phone: Hematology/OncologyComment on above:Megaloblastic anemia due to vitamin B12 deficiency (Primary Dx); Chronic fatigue and malaiseStart: 12-17-2022 End: 49-68-0034Klgeleaxzqye consultation with Sonali Rojas APRN.CNP Work Phone: SANDUSKYStart: 34-84-3225Wenivjyhi encounterPamella Bettencourt RN Work Phone: Hematology/OncologyComment on above:AppointmentStart: 34-44-2119mzacvgbmruRlxdi Abhyankar MD Work Phone: Hematology/OncologyComment on above:Test resultsStart: 49-39-0258Biopkhhzc encounterEnma Hamm RNHematology/OncologyComment on above:ResultsStart: 72-23-1909hvxyebyltbJihcepzd Tsai MD Work Phone: RheumatologyComment on above:updateStart: 11-19-2022 End: 66-83-5847Lnsmmfp evaluation of patient and reportMa Nurse Sawyer Marshall Work Phone: Hematology/OncologyComment on above:Megaloblastic anemia due to vitamin B12 deficiency (Primary Dx); Elevated sed rateStart: 10-22-2022 End: 14-01-6307Eqefcop evaluation of patient and reportMa Nurse Sawyer Joanna Work Phone: Hematology/OncologyComment on above:Megaloblastic anemia due to vitamin B12 deficiency (Primary Dx); Elevated sed rateStart: 10-22-2022 End: 17-00-5994Uvkxch outpatient visit 15 minutesVera Najera MD Work Phone: Hematology/OncologyComment on above:Megaloblastic anemia due to vitamin B12 deficiency (Primary Dx); Elevated sed rate; High total serum IgM; Chronic fatigue and malaise; Obstructive sleep apnea syndromeStart: 09-24-2022 End: 14-04-7099yiwafjojbsKKW RAMEY .Facility:J6Spnbq: 09-24-2022 End: 90-97-9139Xfbrgcl evaluation of patient and reportMa Nurse Sawyer Marshall Work Phone: Hematology/OncologyComment on above:Megaloblastic anemia due to vitamin B12 deficiency (Primary Dx); Elevated sed rateStart: 09-10-2022 End: 10-64-5897rzjamihctfCPPrashanth FERRIS .Facility:R5Xcpbo: 38-94-6886Hdbtqdhqp encounterShyamanabella Vuroger [facility] Home Delivery - ComplianceComment on above:Compliance AdherenceStart: 09-07-2022 End: 29-72-1090Hwfkck outpatient visit 40 minutesChristie Phan MD Work Phone: Integrative and Lifestyle MedicineComment on above: Obesity, Class III, BMI >= 40 (Primary Dx); Polypharmacy; Pre-diabetesStart: 09-01-2022 End: 02-93-9040gthjbsprlkYBPrashanth FERRIS .Facility:E2Kqhkp: 09-33-9163FmsxojAaron Ni MD Work Phone: RheumatologyComment on above:Refill RequestStart: 08-27-2022 End: 32-24-0186Agjjkln evaluation of patient and reportMa Nurse Sawyerbryce Marshall Work Phone: Hematology/OncologyComment on above:Megaloblastic anemia due to vitamin B12 deficiency (Primary Dx); Elevated sed rateStart: 08-27-2022 End: 64-24-7756yryaulrxwzKhjgp Martinez APRN.CNP Work Phone: Hematology/OncologyComment on above:Megaloblastic anemia due to vitamin B12 deficiency (Primary Dx); Elevated sed rate; High total serum IgM; Chronic fatigue and malaise; JOSE RAFAEL (obstructive sleep apnea)Start: 08-27-2022 End: 65-81-4061Eopuaap encounter procedureRebekah Rojas APRN.CNP Work Phone: SANDUSKYStart: 29-56-4608Ooclmblnj encounterLynne Ni MD Work Phone: RheumatologyComment on above:ResultsStart: 08-15-2022 ambulatoryLynne Ni MD Work Phone: RheumatologyComment on above:updateStart: 08-10-2022 RefillChristie Phan MD Work Phone: [facility] for Integrative MedComment on above:Refill Request Start: 07-27-2022 End: 75-14-4251bnnfpbttbbAdifykbzsEris Heck APRN.CNP Work Phone: NeurologyComment on above:JOSE RAFAEL (obstructive sleep apnea) (Primary Dx)Start: 07-27-2022 End: 95-02-2429Pcgaiukrptmi consultation with Sara Heck APRN.CNP Work Phone: [facility] HILLCRESTStart: 80-06-2849hqhjlhkjsaMzhhktdq Tsai MD Work Phone: RheumatologyComment on above:Blood workStart: 54-09-3765Hebflmvec encounterVera Najera MD Work Phone: Hematology/OncologyComment on above:Orders (Lab Orders Before Appointment)Start: 27-71-0167hfhuflomuzAykyij Devnani MD Work Phone: [facility]Start: 30-62-0356Axwnqtq encounter procedureLawanda Miranda MD Work Phone: NeurologyComment on above:AppointmentStart: 05-20-2022 End: 25-87-9614Qblfoel evaluation of patient and reportMa Nurse Sawyer Marshall Work Phone: Hematology/OncologyComment on above:Megaloblastic anemia due to vitamin B12 deficiency (Primary Dx); Elevated sed rateStart: 05-20-2022 End: 20-85-5266mwvsnleckoCwgyt Abhyankar MD Work Phone: Hematology/OncologyComment on above:High total serum IgM (Primary Dx); Elevated sed rate; Somnolence, daytime; JOSE RAFAEL (obstructive sleep apnea)Start: 05-20-2022 End: 14-56-9436Wysyrql encounter procedureVera Najera MD Work Phone: SANDUSKYStart: 47-77-7251nrnzaphnrtDvyajv Devnani MD Work Phone: NeurologyComment on above:CpapStart: 05-05-2022 Telephone encounterCarjan BILLINGSLEYHome Respiratory TherapyComment on above:PAP Therapy Follow UpPAP Rx Faxed (YUNIOR Seo)Start: 89-74-3710Ddlboymop encounterNy Lance MD Work Phone: Pediatric GenomicsComment on above:Future Appointment (Scheduling questions/concerns)Start: 26-47-5113Oihxndutx encounterAlyssa Licea Research CoordinatorGenetic HealthcareComment on above:Appointment; College Coach - OtherStart: 03-31-2022 End: 16-33-4768sgdqbrzmfiPK MANUEL FERRIS .Facility:E0Pwnjn: 64-00-0443Jkdlqn Christie Phan MD Work Phone: [facility] for Integrative MedComment on above:Refill Request Start: 33-51-0625ziedtnwykvGlzva Patadia MD Work Phone: AllergyComment on above:PneumovaxStart: 23-67-8064L- mail encounter from caregiverMisty Nelson MD Work Phone: AMHERSTStart: 73-02-4340Qoakiyutz encounterMisty Nelson MD Work Phone: AllergyComment on above:PneumovaxStart: 03-21-2022 End: 92-94-9193kcifrnruapWN EL ENID .Facility:R1Plvhg: 03-18-2022 End: 58-68-8500zvtcdytgpmPvqzy Abhyankar MD Work Phone: Hematology/OncologyComment on above:Megaloblastic anemia due to vitamin B12 deficiency (Primary Dx); High total serum WvIX1yHrilu: 51-30-1863P-mail encounter from John Phan MD Work Phone: [facility]USStart: 03-18-2022 End: 66-69-5353Cejltzm encounter procedureVera Najera MD Work Phone: SANDUSKYStart: 03-12-2022 End: 79-37-3611ohuujnezrxPB DOUGLAS HOY .Facility:Z3Gnkvl: 03-10-2022 End: 35-22-5768sbnuozzofkCbnusmv Lehman DO Work Phone: Infectious DiseaseComment on above:resultsRaised level of immunoglobulins (Primary Dx); Wound healing, delayed; Current smokerStart: 35-04-8338I-mail encounter from Jean Patrickhmjuancarlos LIVE Work Phone: [facility]Start: 03-10-2022 End: 14-58-8017Unarbdlwdlnv consultation with patientMisty Nelson MD Work Phone: AMHERSTStart: 03-09-2022 End: 04-88-2001dstmsmieoyRVCTIR CRAMERFacility:G5Slooc: 03-09-2022 End: 98-04-6316Yflujh consultation new/estab patient 80 Dorothea Phan MD Work Phone: [facility] for Integrative MedComment on above:Obesity, Class II, BMI 35-39.9 (Primary Dx); Somnolence, daytime; Chronic fatigue and malaise; Obesity, unspecified classification, unspecified obesity type, unspecified whether serious comorbidity present; Snoring; POTS (postural orthostatic tachycardia syndrome); Elevated glucose; Raised level of immunoglobulinsStart: 66-22-9549Uujwlhmqq encounterEly-Bloomenson Community Hospitalcaitlin Victoria [employer] Work Phone: Infectious DiseaseComment on above:Opened In Error Start: 07-84-4485brbucygnyqQaxyfpqe Tsai MD Work Phone: RheumatologyComment on above:resultsStart: 03-05-2022 Telephone encounterLynne Ni MD Work Phone: RheumatologyComment on above:ResultsStart: 03-04-2022 End: 34-53-1716teofeyaiuqGutuwTyler Najera MD Work Phone: Hematology/OncologyComment on above:High total serum IgM (Primary Dx); Megaloblastic anemia due to vitamin B12 deficiency; Somnolence, daytime; Snoring; Chronic fatigue and malaise; Obesity, unspecified classification, unspecified obesity type, unspecified whether serious comorbidity presentStart: 03-04-2022 End: 12-50-0518Laefkek encounter Jorge Najera MD Work Phone: SANDUSKYStart: 04-62-3295Oadtc abstractReji Najera MD Work Phone: Hematology/OncologyStart: 82-51-9342Ynwtesfuk encounterMilena Gandara MD Work Phone: Infectious DiseaseComment on above:Opened In Error Start: 02-24-2022 End: 73-95-0510cygrdenrtrYkjbwos Lehman [employer] Work Phone: Infectious DiseaseComment on above:Swelling of lymph nodes (Primary Dx); Other systemic lupus erythematosus with other organ involvement (HCC); On prednisone therapy; Hair loss; Bilateral sacroiliitis (HCC); Long-term use of PlaquenilStart: 02-24-2022 End: 40-41-6758Vxmysbymxjaq consultation with Mich Victoria Work Phone: [facility]INStart: 02-14-2022 End: 57-42-4515bvzioewjszRX MANUEL FERRIS .Facility:V8Aqzvo: 11-26-2021 End: 09-93-8127vxlogykiklRtrxrfc Blank Other [employer] Other Start: 97-55-9865Fmvjes outpatient visit 25 minutes Edgardo Odom Infectious DiseaseStart: 11-17-2021 End: 36-69-2399nrbvbxqbgdQCAdair Andersoncility:D6Ooxgb: 10-24-2021 End: 65-79-7439Zeyosnq encounter procedureLynne Ni MD Work Phone: eumatologyComment on above:Other systemic lupus erythematosus with other organ involvement (HCC) (Primary Dx); CHRISTIAN positive; Elevated sed rate; Vitamin D deficiency; Vitamin B12 deficiency; Secondary osteoarthritis of multiple sites; Chronic bilateral low back pain with bilateral sciatica; Rash and nonspecific skin eruption; Chronic pain of toes of both feet; Hair loss; Long-term use of Plaquenil; Family history of Crohn's disease; FibromyalgiaStart: 10-15-2021 End: 03-09-4698arpwbbybqgRzdzvfh Blank Other [employer] Other Start: 93-02-7660Tuknll outpatient visit 25 minutes Edgardo Odom Infectious DiseaseStart: 10-03-2021 End: 60-76-5562aexuxpoidhRRPrashanth Andersoncility:R7Wufsu: 09-18-2021 End: 39-58-3214sxgwwhhwzoQvjcbqt Blank Other [employer]Sur[employer] Other Start: 79-17-6400Kgjfvjdxf encounterMicrodrick Odom Infectious DiseaseStart: 09-11-2021 End: 10-12-6224ggkfvfbmymAeigtph Blank Other Nort OFERTALDIA Other Start: 59-86-2113Fzcjhp outpatient new 45 minutes Edgardo BaerFPG Infectious DiseaseStart: 10-07-2020 End: 27-11-1341zfhnunayebFZCKZ [facility] Generaltart: 10-07-2020 End: 45-63-3605Uemtgzywjr hospital visit by physicianStv Technology Intern ASTMJ Cath LabComment on above:ArrivedStart: 09-14-2018 End: 15-92-0668Yjergyl encounter procedureROBERT M [facility] Procedures DateProcedureProcedure DetailPerforming ClinicianStart: 77-52-7818Ieepl culture Gay De La Torre EDUCATION ANALYST-C Work Phone: Start: 25-20-2761Mlpnb culturePafrancesco De La Torre EDUCATION ANALYST-C Work Phone: Start: 98-26-5823AXUNTWG CULTURETerence Blum MD Work Phone: Start: 33-69-5295MVCQQHNFX Berlin Blum MD Work Phone: Start: 45-63-6009Eivhndc of pilonidal cystPajessea Britt EDUCATION ANALYST-C Work Phone: Start: 21-65-3733Xcddmff microbial culturePafrancesco Moralesmer EDUCATION ANALYST-C Work Phone: [phone]-art: 40-28-2006Syxk stain microscopyPamela Britt EDUCATION ANALYST-C Work Phone: [phone]-art: 04-76-7485Fqcbo culturePamela Britt EDUCATION ANALYST-C Work Phone: [phone]-art: 67-79-6346CV Nerve Radio Frequency (Bilateral) Gay De La Torre EDUCATION ANALYST-C Work Phone: Start: 35-88-5505Fzrpw count complete automated Lynne Ni MD Work Phone: Start: 72-41-6145Mbnkx count complete automated Lynne Ni MD Work Phone: Start: 41-64-4558M-reactive proteinLynne Ni MD Work Phone: Start: 31-92-4635Pgjfc of gammaglobulin iga igd igg igm eachVaibhav Carvalho STRAP MAKING MACHINE OPERATOR.VP PRODUCT MARKETING Work Phone: Start: 77-57-9113Ud soft tissue head & neck real time imge Ana Maria Barfield MD Work Phone: Start: 11-23-6775Jujweeqsg of local anesthetic into sacroiliac jointGay De La Torre EDUCATION ANALYST-C Work Phone: Start: 33-28-7569Rgxqu count complete auto&auto difrntl wbcVaibhav Carvalho STRAP MAKING MACHINE OPERATOR.VP PRODUCT MARKETING Work Phone: Start: 58-46-3860FLC,APTIMA HPV,AGE GDLNOly WARREN Work Phone: Start: 82-75-5208Xogtsytmaia observation [Identifier] in Cervix by Cyto stainBernabe English MD Work Phone: Start: 42-81-6874Cdjdn count complete auto&auto difrntl wbcLeonardok Marquis LEE Work Phone: Start: 96-05-6340PypnrpdpewvEewdt Petitti MD Work Phone: Start: 82-48-8995RIX CBC WITH AUTO DIFFOly WARREN Work Phone: Start: 83-57-4946VBB THYROID STIM HORMONEOly WARREN Work Phone: Start: 63-67-6348IYF THYROXINE (T4) FREEOly WARREN Work Phone: Start: 97-45-8864GRL APTTAjesenia WARREN Work Phone: Start: 07-17-0841WQG HEMOGLOBIN A1COly WARREN Work Phone: Start: 85-07-0757ULBCMA PROTHROMBIN TIME INR W/O COUM Oly Temo WARREN Work Phone: Start: 30-63-2365DQB PREG QUANT HCGAmy Temo WARREN Work Phone: Start: 20-84-8024LmkbjkwtzqeIiikjf Ibrahim MD Work Phone: Start: 03-23-2024 End: 88-38-6293Hhzxk dip stick/tablet rgnt non-auto w/o micrscpAmy Temo WARREN Work Phone: Start: 93-96-3874Lbtlzxbkf of local anesthetic into sacroiliac jointNP-C Gay De La Torre Work Phone: [phone]: 34-52-5921Tuz routine ecg w/least 12 lds w/i&r Lois Holm MD Work Phone: Start: 95-92-9300Zzk routine ecg w/least 12 lds w/i&r Michelle Jasmine 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 PRODUCT MARKETING Work Phone: Start: 96-86-8806Ajyqbsabgwz observation [Identifier] in Cervix by Cyto stainCorey Skip DO Work Phone: Start: 45-47-3526Blet cerv/vag auto thin layer prep mnl screenCorey [facility] [employer] Work Phone: Start: 10-07-2020 End: 47-58-5663Nlpfowx catheterizationJonas Black MD Work Phone: Start: 68-36-8609Msmsjgdl [Moles/volume] in Serum or PlasmaJonas Black MD Work Phone: Start: 13-08-2034TIGIZKCJQP W/GFR POINT OF CAREJonas Black MD Work Phone: Start: 10-07-2020 End: 80-27-9922Ozij bld gluc mntr dev cleared fda spec home useJonas Black MD Work Phone: Start: 71-77-2259Vsvcvxtta [Moles/volume] in Serum or PlasmaJonas Black MD Work Phone: Start: 29-64-9745Dsxkro [Moles/volume] in Serum or PlasmaJonas Black MD Work Phone: Start: 31-92-2435Inesn test visual color cmprsn Neal Black MD Work Phone: Start: 46-32-5451Irrqg foot complete minimum 3 views VICTOR MANUEL GUZMAN Plan of Treatment DateCare ActivityDetailAuthorStart: 00-44-5958Olbpgbrqn for malignant neoplasm of cervixNOMS HealthcareStart: 12-20-5602Duftquqgn for malignant neoplasm of cervixNOMS HealthcareStart: 95-94-1670Mxaoydymr for malignant neoplasm of cervix Pap SmearOur Lady of Mercy Hospital SystemStart: 07-26-2025 End: 85-03-8920Npgrmsa encounter /05/2026 11:00 AM EST Office Visit [facility] [address] [facility] [address] [place] [id number] Lois Holm MD [address] [place] [address] [facility] CenterStart: 07-25-2025 End: 69-99-0606Rqmbmsy encounter procedureNOMS SWS DERMStart: 04-20-2025 End: 552564-relrnlylnuftej D3 [Mass/volume] in Serum or PlasmaVITAMIN D 25 HYDROXY Lab Routine Vitamin D deficiency Expected: 04/20/2025 (Approximate), Expires: 01/18/2026leveland ClinicComment on above:Expected: 04/20/2025 (Approximate), Expires: 01/18/2026Start: 04-20-2025 End: 01-18-2026 reactive protein [Mass/volume] in Serum or PlasmaC-REACTIVE PROTEIN Lab Routine Elevated C-reactive protein (CRP) Elevated sed rate Expected: 04/20/2025 (Approximate), Expires: 01/18/2026leveland ClinicComment on above:Expected: 04/20/2025 (Approximate), Expires: 01/18/2026Start: 04-20-2025 End: 29-93-1830VML panel - Blood by Automated countCOMPLETE BLOOD COUNT Lab Routine Anemia of chronic disease Expected: 04/20/2025 (Approximate), Expires: 01/18/2026leveland ClinicComment on above:Expected: 04/20/2025 (Approximate), Expires: 01/18/2026Start: 04-20-2025 End: 65-71-9341Jzoawligmlpey metabolic 2000 panel - Serum or PlasmaCOMPREHENSIVE METABOLIC PANEL Lab Routine Elevated LFTs Expected: 04/20/2025 (Approximate), Expires: 01/18/2026[facility] Work Phone: Comment on above:Expected: 04/20/2025 (Approximate), Expires: 01/18/2026Start: 04-20-2025 End: 49-87-4669Zfxzkhzshnz sedimentation rateSEDIMENTATION RATE, WESTERGREN Lab Routine Elevated C-reactive protein (CRP) Elevated sed rate Expected: 04/20/2025 (Approximate), Expires: 01/18/2026leveland ClinicComment on above:Expected: 04/20/2025 (Approximate), Expires: 01/18/2026Start: 91-44-7524Mkbrgqdvf for malignant neoplasm of breastMammTomah Memorial HospitalStart: 95-63-8758Ejdpq BMI ScreeningAdult BMI ScreeningOur Lady of Mercy Hospital SystemStart: 47-29-8377Dqkpjctmd for malignant neoplasm of breastMary Rutan HospitalStart: 17-05-8916Lvkdbtx ScreeningTobacco ScreeningProUniversity Hospitals [facility] SystemStart: 03-23-2025 End: 02-94-9233Cjgsahe encounter wgsetrewf24/31/2025 11:30 AM EDT Office Visit [facility] [address] [address] Terence Blum MD [address] [facility] [address] [place] [address] [facility] AssociatesStart: 03-19-2025 End: 74-33-6010Bkeqijc encounter procedureNOMS ENT [facility]EN[facility] CONNECTICUTtart: 03-17-2025 Diabetes mellitus screeningDiabetes ScreeningBarnesville Hospital Start: 32-47-3249Ephzc cultureOhioHealth Shelby Hospitaltart: 03-09-2025 Bacteria identified in Urine by CultureUrine CultureOhioHealth Shelby Hospitaltart: 89-71-5730Vzewr cultureOhioHealth Shelby Hospitaltart: 40-65-2397Nefuwjeq identified in Urine by CultureUrine [facility] Hospitaltart: 03-02-2025 End: 62-88-6732TjctpidzjOhioHealth Shelby Hospitaltart: 78-52-8092Rtsupux Culture Aerobic [facility] Hospitaltart: 31-26-5674Dizaopogi CultureAnaerobic [facility] Hospitaltart: 03-02-[address] [facility] Start: 35-13-2413Lrgfokgbwjb observation [Identifier] in Unspecified specimen by Gram stainOhioHealth Shelby Hospitaltart: 08-29-7328Uapjq culture [facility] Hospitaltart: 12-47-6496Wawpvxqn identified in Urine by CultureUrine [facility] Hospitaltart: 02-21-2025 End: 66-63-1496ozifqnggsvOutjtbuuty/OncologyComment on above:3 mo F/U-IVIGStart: 02-21-2025 End: 05-84-6833Tfbjbys encounter faabfbodo88/01/2025 8:45 AM EDT Office Visit [facility] [address] [place] [address] 3 mo F/U-IVIGNortDeckerville Community [facility] Comment on above:3 mo F/U-IVIGStart: 02-14-2025 End: 42-36-0074Ssaudxe encounter ciszikjtd89/24/2025 3:20 PM EDT Office Visit [facility] [address] [place] [address] Bernabe English MD [address] [place] [address] [facility] DermatologyComment on above:ArrivedStart: 02-08-2025 End: 44-21-6322msgojahbnm25/18/2025 2:00 PM EDT Infusion Center Hematology/Oncology [address] [place] [address] [place] [address] BENLYSTA -Hematology/OncologyComment on above:BENLYSTA -Start: 44-87-5775MbjmutcwnOhioHealth Shelby Hospitaltart: 01-24-2025 End: 70-00-9792uvlyjifmmwLiwxofwjip/OncologyComment on above:IVIG q4 weeks IVIG(5hours) q4 weeksStart: 02-57-4436Xxdltwyny vaccinationNOMD HealthcareStart: 01-06-2025 End: 009472-njqvamixtlvswm D3 [Mass/volume] in Serum or PlasmaVITAMIN D 25 HYDROXY Lab Routine Vitamin D deficiency Expected: 01/06/2025 (Approximate), Expires: 10/06/2025leveland ClinicComment on above:Expected: 01/06/2025 (Approximate), Expires: 10/06/2025Start: 01-06-2025 End: 49-60-4849QHMRY TB SCREENBLOOD TB SCREEN Lab Routine Screening-pulmonary TB Expected: 01/06/2025 (Approximate), Expires: 10/06/2025leveland ClinicComment on above:Expected: 01/06/2025 (Approximate), Expires: 10/06/2025Start: 01-06-2025 End: 10-06-2025 reactive protein [Mass/volume] in Serum or PlasmaC-REACTIVE PROTEIN Lab Routine Elevated sed rate Elevated C-reactive protein (CRP) Expected: 01/06/2025 (Approximate), Expires: 10/06/2025[facility] ClinicComment on above:Expected: 01/06/2025 (Approximate), Expires: 10/06/2025Start: 01-06-2025 End: 97-43-5190WPG panel - Blood by Automated countCOMPLETE BLOOD COUNT Lab Routine Anemia of chronic disease Expected: 01/06/2025 (Approximate), Expires: 10/06/2025[facility] ClinicComment on above:Expected: 01/06/2025 (Approximate), Expires: 10/06/2025Start: 01-06-2025 End: 12-98-1880Kcgoedm hepatitis differentiation between hepatitis B and C virus panel - Serum or PlasmaHEP REMOTE PANEL BL Lab Routine Elevated LFTs Expected: 01/06/2025 (Approximate), Expires: 10/06/2025[facility] ClinicComment on above: Expected: 01/06/2025 (Approximate), Expires: 10/06/2025Start: 01-06-2025 End: 64-03-5265Lumixznbt (Vitamin B12) [Mass/volume] in Serum or PlasmaVITAMIN B12 Lab Routine Vitamin B12 deficiency Expected: 01/06/2025 (Approximate), Expires: 10/06/2025[facility] ClinicComment on above:Expected: 01/06/2025 (Approximate), Expires: 10/06/2025Start: 01-06-2025 End: 71-05-3713Ggehbvzkpetoh metabolic 2000 panel - Serum or PlasmaCOMPREHENSIVE METABOLIC PANEL Lab Routine Elevated LFTs Expected: 01/06/2025 (Approximate), Expires: 10/06/2025[facility] Work Phone: Comment on above:Expected: 01/06/2025 (Approximate), Expires: 10/06/2025Start: 01-06-2025 End: 00-08-5344Tittpczlrdm sedimentation rateSEDIMENTATION RATE, WESTERGREN Lab Routine Elevated sed rate Elevated C-reactive protein (CRP) Expected: 01/06/2025 (Approximate), Expires: 10/06/2025[facility] ClinicComment on above:Expected: 01/06/2025 (Approximate), Expires: 10/06/2025Start: 12-27-2024 End: 52-16-7902ccmqcztzua17/06/2025 9:00 AM EDT Infusion Center Hematology/Oncology [address] [place] [address] [place] [address] IVIG q4 weeksHematology/OncologyComment on above:IVIG q4 weeksStart: 12-14-2024 End: 14-31-6265nfbhonikls00/24/2025 2:00 PM EDT Infusion Center Hematology/Oncology [address] [place] [address] [place] [address] BENLYSTA -Hematology/OncologyComment on above:BENLYSTA -Start: 11-29-2024 End: 74-48-2125xzkdbplffpUcvqpmchoy/OncologyComment on above:3 mo F/U-IVIG(slow infusion per pt request/B12 +/-IV iron labStart: 11-29-2024 End: 98-89-4754Ifbyuuf encounter cqsjpmhhy73/09/2025 8:45 AM EDT Office Visit [facility] [address] [place] [address] 3 mo F/U-IVIG(slow infusion per pt request/B12 +/-IV iron lab [facility] LaboratoryComment on above:3 mo F/U- IVIG(slow infusion per pt request/B12 +/-IV iron labStart: 11-20-2024 End: 45-09-8164FGP W Auto Differential panel - BloodCOMPLETE BLOOD COUNT AND DIFFERENTIAL Lab Routine Hypogammaglobulinemia (HCC) Expected: 11/20/2024, Expires: 02/19/2025[facility] Work Phone: Comment on above:Expected: 11/20/2024, Expires: 02/19/2025Start: 11-20-2024 End: 62-79-4502Tljfqgusv (Vitamin B12) [Mass/volume] in Serum or PlasmaVITAMIN B12 Lab Routine Hypogammaglobulinemia (HCC) Expected: 11/20/2024, Expires: 02/19/2025[facility] ClinicComment on above:Expected: 11/20/2024, Expires: 02/19/2025Start: 11-20-2024 End: 23-26-3194Jawoivzmlzaco metabolic 2000 panel - Serum or PlasmaCOMPREHENSIVE METABOLIC PANEL Lab Routine Hypogammaglobulinemia (HCC) Expected: 11/20/2024, Expires: 02/19/2025[facility] ClinicComment on above:Expected: 11/20/2024, Expires: 02/19/2025Start: 11-20-2024 End: 94-74-1099Utmetnkp [Mass/volume] in Serum or PlasmaFERRITIN Lab Routine Hypogammaglobulinemia (HCC) Expected: 11/20/2024, Expires: 02/19/2025[facility] ClinicComment on above:Expected: 11/20/2024, Expires: 02/19/2025Start: 11-20-2024 End: 17-06-7680Fbthnf [Mass/volume] in Serum or PlasmaFOLATE, SERUM Lab Routine Hypogammaglobulinemia (HCC) Expected: 11/20/2024, Expires: 02/19/2025[facility] ClinicComment on above:Expected: 11/20/2024, Expires: 02/19/2025Start: 11-20-2024 End: 54-04-1016QRTTIYZLNSZHADV,IGG,IGA,IGMIMMUNOGLOBULINS,IGG,IGA,IGM Lab Routine Hypogammaglobulinemia (HCC) Expected: 11/20/2024, Expires: 02/19/2025 [facility] HospitalComment on above:Expected: 11/20/2024, Expires: 02/19/2025Start: 67-94-9346Uxspauqrs vaccinationInfluenza Vaccine (#1)[facility]OMS HealthcareComment on above:Postponed from 01/23/2024 (Patient Refused)Start: 11-20-2024 End: 58-05-4755Ibtb and Iron binding capacity panel - Serum or PlasmaIRON AND TIBC Lab Routine Hypogammaglobulinemia (HCC) Expected: 11/20/2024, Expires: 02/19/2025[facility] ClinicComment on above:Expected: 11/20/2024, Expires: 02/19/2025Start: 11-16-2024 End: 21-92-9931aytoxhuywj48/26/2025 2:00 PM [facility] Infusion Center Hematology/Oncology [address] [place] [address] [place] [address] BENLYSTA -Hematology/OncologyComment on above:BENLYSTA -Start: 11-01-2024 End: 72-67-6114fynhbszgmd76/11/2025 9:00 AM [facility] Infusion Center Hematology/Oncology [address] [place] [address] [place] [address] IVIG q 4 weeks with B 12 inj and labHematology/OncologyComment on above:IVIG q 4 weeks with B 12 inj and labStart: 10-31-2024 End: 61-83-3405zltzpajmkk81/10/2025 9:00 AM EDT Infusion Center Hematology/Oncology [address] [place] [address] IVIG q 4 weeks with B 12 inj and labHematology/OncologyComment on above:IVIG q 4 weeks with B 12 inj and labStart: 10-19-2024 End: 12-56-7307modiauxurr73/29/2025 2:00 PM EDT Infusion Center Hematology/Oncology [address] [place] [address] [place] [address] BENLYSTA - IVIG AND BENLYSTA AT LEAST 1 DAY APART FOR FUTURE APPTSHematology/Oncology Comment on above:BENLYSTA - IVIG AND BENLYSTA AT LEAST 1 DAY APART FOR FUTURE APPTSStart: 10-18-2024 End: 33-11-9396Rxudnbeqr Qxicxjoe49/28/2025 10:00 AM EDT Specialty Pharmacy [facility] [address] [place], [place] [address] [address] Pharmacist, Specialtygroup [address] [place] [address] [place], [place] [address] REFILL- Benlysta- PAx 02/11/25- - mult call attemptsCCF Specialty PharmacyComment on above:REFILL- Benlysta- PAx 02/11/25- - mult call attemptsStart: 10-07-2024 End: 10-85-0118Hnvpdl-up wdccjbiwi47/17/2025 8:00 AM EDT [facility] Rheumatology [address] [place] [address] Lynne Ni MD [address] [place] [address] follow up visitRheumatologyComment on above:follow up visit Start: 10-06-2024 End: 260813-fqecnzrrmdfgre D3 [Mass/volume] in Serum or PlasmaVITAMIN D 25 HYDROXY Lab Routine Vitamin D deficiency Expected: 10/06/2024 (Approximate), Expires: 07/09/2025[facility] ClinicComment on above:Expected: 10/06/2024 (Approximate), Expires: 07/09/2025Start: 10-06-2024 End: 07-09-2025 reactive protein [Mass/volume] in Serum or PlasmaC-REACTIVE PROTEIN Lab Routine Elevated sed rate Elevated C-reactive protein (CRP) Expected: 10/06/2024 (Approximate), Expires: 07/09/2025[facility] ClinicComment on above:Expected: 10/06/2024 (Approximate), Expires: 07/09/2025Start: 10-06-2024 End: 62-85-1211GGP panel - Blood by Automated countCOMPLETE BLOOD COUNT Lab Routine Anemia of chronic disease Expected: 10/06/2024 (Approximate), Expires: 07/09/2025[facility] ClinicComment on above:Expected: 10/06/2024 (Approximate), Expires: 07/09/2025Start: 10-06-2024 End: 32-96-4338Vhawdjqmmcbrs metabolic 2000 panel - Serum or PlasmaCOMPREHENSIVE METABOLIC PANEL Lab Routine Elevated LFTs Expected: 10/06/2024 (Approximate), Expires: 07/09/2025[facility] Work Phone: Comment on above:Expected: 10/06/2024 (Approximate), Expires: 07/09/2025Start: 10-06-2024 End: 27-89-3671Xyzmccqciun sedimentation rateSEDIMENTATION RATE, WESTERGREN Lab Routine Elevated sed rate Elevated C-reactive protein (CRP) Expected: 10/06/2024 (Approximate), Expires: 07/09/2025[facility] ClinicComment on above:Expected: 10/06/2024 (Approximate), Expires: 07/09/2025Start: 2024 End: 25-61-5837eucbyjuntlMkhspxtxdx/OncologyComment on above:IVIG q 4 weeks with B 12 inj and labBENLYSTA - IVIG AND BENLYSTA AT LEAST 1 DAY APART FOR FUTURE APPTSREFILL- Benlysta- PAx 02/11/25- - LVM 09/20, 09/25, 09/27Start: 10-02-2024 End: 71-83-9983eolxmjmiue22/12/2025 9:00 AM EDT Infusion Center Hematology/Oncology [address] [place] [address] [place] [address] IVIG q 4 weeks with B 12 inj and labHematology/OncologyComment on above:IVIG q 4 weeks with B 12 inj and labStart: 09-28-2024 End: 77-13-3275Ivkayisuz Ikxynlnw68/08/2025 10:00 AM EDT Specialty Pharmacy [facility] [address] [place] [address] Pharmacist, [facility]ty[facility] [address] [place] [address] [place] [address] REFILL- Benlysta- PAx 02/11/25- - LVM 09/20, /5CCF Specialty PharmacyComment on above:REFILL- Benlysta- PAx 02/11/25- - LVM 09/20, 5Start: 09-25-2024 End: 11-09-0197Pdoiqissc Yflhdjsf79/05/2025 10:15 AM EDT Specialty Pharmacy [facility] [address] [place] [id number] Pharmacist, [facility]ty[facility] [address] [place] [address] [place] [address] REFILL- Benlysta- PAx 02/11/25- - LVM 09/20CCF Specialty PharmacyComment on above:REFILL- Benlysta- PAx 02/11/25- ursdays - LVM 30Start: 09-20-2024 End: 90-62-8930Umhnhwlmo Lgnzlbhg36/30/2025 10:15 AM EDT Specialty Pharmacy [facility] [address] [place] [address] Pharmacist, [facility]ty[facility] [address] [place] [address] [place] [address] REFILL- Benlysta- PAx 02/11/25 - pend new RxCCF Specialty PharmacyComment on above:REFILL- Benlysta- PAx 02/11/25 - pend new RxStart: 09-19-2024 End: 06-57-4379Uzwknhy encounter procedureGMIT MAIN WALKERComment on above:hEDS with concerns and wants CTD evaluationStart: 09-18-2024 End: 23-51-7483Vikphgnrv PharmacyCCF Specialty PharmacyComment on above:REFILL- Benlysta- PAx 02/11/25BENLYSTAStart: 09-06-2024 End: 32-86-5934ujaybozcsi38/16/2025 9:30 AM EDT Infusion Center Hematology/Oncology [address] [place] [address] [place] [address] 3 mo F/U-IVIG(slow infusion per pt request/B12 +/-IV ironHematology/OncologyComment on above:3 mo F/U-IVIG(slow infusion per pt request/B12 +/-IV ironStart: 09-06-2024 End: 42-02-6272Tyrqbq-up encounterHematology/OncologyComment on above:3 month follow up IVIG for hypogammaglobulinemia + g53Qqfrh: 09-06-2024 End: 46-07-2069Ykfdrin encounter xeomyuytl81/16/2025 8:45 AM EDT Office Visit [facility] [address] [facility] [facility] [place] [address] 3 month follow up IVIG for hypogammaglobulinemia + v56[facility] LaboratoryComment on above:3 month follow up IVIG for hypogammaglobulinemia + o38Lqoau: 09-05-2024 End: 98-16-9726Fhpoox-up encounterHematology/OncologyComment on above:3 month follow up IVIG for hypogammaglobulinemia + p24Jjwvl: 09-05-2024 End: 85-81-8595Nlarxum encounter bwuzmhzhu95/15/2025 8:45 AM EDT Office Visit [facility] [address] [place] [address] 3 month follow up IVIG for hypogammaglobulinemia + q32Ljgey [facility] LaboratoryComment on above:3 month follow up IVIG for hypogammaglobulinemia + t88Aztyw: 09-04-2024 End: 05-15-5836Qorftai encounter ypfxnrlzk75/14/2025 3:20 PM EDT Office Visit [facility] [place] [address] [facility] [address] [place] [address] Gordo Barfield MD [address] [facility] [address] [place] [address] ArrivedNOMS OUR LADY OF FATIMA HOSPITALomment on above:ArrivedStart: 08-28-2024 End: 23-21-2025AII W Auto Differential panel - BloodCOMPLETE BLOOD COUNT AND DIFFERENTIAL Lab Routine Vitamin B12 deficiency Other iron deficiency anemia Hypogammaglobulinemia (HCC) Expected: 08/28/2024, Expires: 11/27/2024[facility] Work Phone: Comment on above:Expected: 08/28/2024, Expires: 11/27/2024Start: 08-28-2024 End: 73-22-6442Pjxrfsgpi (Vitamin B12) [Mass/volume] in Serum or PlasmaVITAMIN B12 Lab Routine Vitamin B12 deficiency Other iron deficiency anemia Hypogammaglobulinemia (HCC) Expected: 08/28/2024, Expires: 11/27/2024[facility] ClinicComment on above:Expected: 08/28/2024, Expires: 11/27/2024Start: 08-28-2024 End: 71-56-3528Hjsugmipdvxua metabolic 2000 panel - Serum or PlasmaCOMPREHENSIVE METABOLIC PANEL Lab Routine Vitamin B12 deficiency Other iron deficiency anemia Hypogammaglobulinemia (HCC) Expected: 08/28/2024, Expires: 11/27/2024[facility] ClinicComment on above:Expected: 08/28/2024, Expires: 11/27/2024Start: 08-28-2024 End: 22-63-5094Yrjxxleg [Mass/volume] in Serum or PlasmaFERRITIN Lab Routine Vitamin B12 deficiency Other iron deficiency anemia Hypogammaglobulinemia (HCC) Expected: 08/28/2024, Expires: 11/27/2024[facility] ClinicComment on above: Expected: 08/28/2024, Expires: 11/27/2024Start: 08-28-2024 End: 43-31-8747Rnujaa [Mass/volume] in Serum or PlasmaFOLATE, SERUM Lab Routine Vitamin B12 deficiency Other iron deficiency anemia Hypogammaglobulinemia(HCC) Expected: 08/28/2024, Expires: 11/27/2024[facility] ClinicComment on above: Expected: 08/28/2024, Expires: 11/27/2024Start: 08-28-2024 End: 79-25-0430LzJ [Mass/volume] in Serum or PlasmaIMMUNOGLOBULIN G Lab Routine Vitamin B12 deficiency Other iron deficiency anemia Hypogammaglobulinemia (HCC) Expected: 08/28/2024, Expires: 11/27/2024[facility] ClinicComment on above: Expected: 08/28/2024, Expires: 11/27/2024Start: 08-28-2024 End: 17-43-0455Qgar and Iron binding capacity panel - Serum or PlasmaIRON AND TIBC Lab Routine Vitamin B12 deficiency Other iron deficiency anemia Hypogammaglobulinemia(HCC) Expected: 08/28/2024, Expires: 11/27/2024[facility] ClinicComment on above:Expected: 08/28/2024, Expires: 11/27/2024Start: 08-22-2024 End: 64-37-3247Rcttptb encounter aplqhzisn02/01/2025 1:30 PM EDT Office Visit [facility] [address] [place] [phone] Raj Kitchen MD [address] [place] [address] NOMLucinda ENDOCRINOLOGYStart: 08-22-2024 End: 02-76-4180Tnhhaacav Gygzbbib90/01/2025 10:15 AM EDT Specialty Pharmacy [facility] [place] [address] Pharmacist, Specialtygroup [address] [place] [address] [place], [place] [address] REFILL- Benlysta- PAx 02/11/25- [facility] 08/17CC Specialty PharmacyComment on above:REFILL- Benlysta- PAx 02/11/25- lv 08/17Start: 08-17-2024 End: 50-96-9964Yypwarkky Zxfzswpq70/27/2025 10:00 AM EDT Specialty Pharmacy [facility] [address] [place], [place] [address]504-[address] [address] Pharmacist, Specialtygroup [address] [place] [address] [place] [address] REFILL- Benlysta- PAx 02/11/25- CC Specialty PharmacyComment on above:REFILL- Benlysta- PAx 02/11/25- Start: 08-15-2024 End: 13-98-2963Dtqzzsw encounter fvspxhemv06/25/2025 10:20 AM EDT Office Visit [facility] [address] [facility] 130 [place] [address] Gordo Barfield MD 112 [facility] [address] [place] [address] [facility] CI ENTStart: 08-08-2024 End: 83-33-6916ygpquchtsf30/18/2025 9:30 AM EDT Infusion Center Hematology/Oncology [address] [place] [address] [place] [address] IVIG for hypogammaglobulinemia + c67Yhqzsogqxg/OncologyComment on above:IVIG for hypogammaglobulinemia + g13Uzocq: 08-01-2024 End: 50-68-4219Lyaayaz encounter netxofmql28/11/2025 10:30 AM EDT Office Visit [facility] [address] [place] [address] Bernabe English MD [address] [place] [address] [facility] S[facility] DERMStart: 07-25-2024 End: 64-75-3463Ktqqhzber PharmacyCCF Specialty PharmacyComment on above:REFILL- Benlysta- PAx 02/11/25ArrivedStart: 07-20-2024 End: 95-72-3517kcpgqtkxgf79/27/2025 11:30 AM EST [facility] Infectious Disease [address] [place] [address] Alhaji Victoria DO [address] [place], [place] [address] Positive blood cultures [R78.81]Infectious DiseaseComment on above:Positive blood cultures [R78.81]Start: 07-20-2024 End: 39-22-8072Inmjwvr encounter wruisdyrj91/27/2025 11:30 AM EST Office Visit Infectious Disease [address] [place] [address] Alhaji Victoria DO [address] [place], [place] [address] Positive blood cultures [R78.81]Infectious DiseaseComment on above: Positive blood cultures [R78.81]Start: 76-49-7917LexfsdxdiOhioHealth Shelby Hospitaltart: 07-13-2024 End: 66-82-0053Zlqesjk encounter nfhsbhesu75/20/2025 9:20 AM EST Office Visit [address] [place] [address] Lois Holm MD 703 [facility] [address] [place] [address] [facility]Start: 07-12-2024 End: 20-53-0944Qmsihgj encounter /19/2025 2:40 PM EST Office Visit Otolaryngology [address] [place] [address] Marky Gasca PA-C [address] [place], [place] [address] RecurrentThrush.OtolaryngologyComment on above:Recurrent Thrush.Start: 07-11-2024 End: 84-23-9041mmwusljpra27/18/2025 9:30 AM [facility] Hematology/Oncology [address] [place] [address] [place] [address] IVIG for hypogammaglobulinemia + p43Ecnxpdqvid/OncologyComment on above:IVIG for hypogammaglobulinemia + x35Bnjpn: 07-03-2024 End: 589959-llavfoazoqfcox D3 [Mass/volume] in Serum or PlasmaVITAMIN D 25 HYDROXY Lab Routine Vitamin D deficiency Expected: 07/03/2024 (Approximate), Expires: 04/02/2025[facility] ClinicComment on above:Expected: 07/03/2024 (Approximate), Expires: 04/02/2025Start: 07-03-2024 End: 04-02-2025 reactive protein [Mass/volume] in Serum or PlasmaC-REACTIVE PROTEIN Lab Routine Elevated sed rate Elevated C-reactive protein (CRP) Expected: 07/03/2024 (Approximate), Expires: 04/02/2025[facility] ClinicComment on above:Expected: 07/03/2024 (Approximate), Expires: 04/02/2025Start: 07-03-2024 End: 21-02-4729VPK panel - Blood by Automated countCOMPLETE BLOOD COUNT Lab Routine Anemia of chronic disease Expected: 07/03/2024 (Approximate), Expires: 04/02/2025[facility] ClinicComment on above:Expected: 07/03/2024 (Approximate), Expires: 04/02/2025Start: 07-03-2024 End: 25-97-5414Sjnxjzobzepbf metabolic 2000 panel - Serum or PlasmaCOMPREHENSIVE METABOLIC PANEL Lab Routine Elevated LFTs Expected: 07/03/2024 (Approximate), Expires: 04/02/2025[facility] Work Phone: Comment on above:Expected: 07/03/2024 (Approximate), Expires: 04/02/2025Start: 07-03-2024 End: 38-94-9575Dqzklcdyire sedimentation rateSEDIMENTATION RATE, WESTERGREN Lab Routine Elevated sed rate Elevated C-reactive protein (CRP) Expected: 07/03/2024 (Approximate), Expires: 04/02/2025[facility] ClinicComment on above:Expected: 07/03/2024 (Approximate), Expires: 04/02/2025Start: 06-29-2024 End: 03-86-0517Ybvfowcbp Spnsfotg57/06/2025 10:00 AM EST [facility]ty [facility] [address] [facility] [address] Pharmacist, Specialtygroup [address] [place] [address] [place] [address] REFILL- Benlysta- PAx 02/11/25CCF Specialty PharmacyComment on above:REFILL- Benlysta- PAx 02/11/25- Start: 06-26-2024 End: 53-85-1289Inwkvbr evaluation of patient and zopogr8506/26/2024 9:45 AM EST Nurse Visit Hematology/Oncology [address] [place] [address] [phone] Hoda Marshall Nurse Sawyer [address] [facility] [place] [place] [address] B41Hhuuffzetc/OncologyComment on above:Y04Nnyqx: 06-26-2024 End: 86-36-1362irkybqgorxLvjxyrrikb/OncologyComment on above:RTC 3 monthIVIG for hypogammaglobulinemiaStart: 06-26-2024 End: 62-40-5330Wnengrg encounter cmzahxwhl76/03/2025 8:45 AM EST Office Visit [facility] [address] [place] [address] labsNortDeckerville Community Hospital LaboratoryComment on above:labsStart: 06-14-2024 End: 02-94-7491Qhsvfwj evaluation of patient and reportHomeworth Gastroenterology and Endoscopy CenterComment on above:Abdominal Pain/Diarrhea/Bandar S [employer] ordered/Patient has prep thru MyChart//ccSIBO - Abdominal Pain/Diarrhea/Bandar S VP [employer]ODUCT MARKET[employer] ordered/Patient has prep thru MyChart//cc Order in Scanned DocumentsStart: 06-13-2024 End: 34-08-0330Pfxadmpgs (Vitamin B12) [Mass/volume] in Serum or PlasmaBethesda North HospitalComment on above:Expected: 06/13/2024, Expires: 09/12/2024Start: 06-13-2024 End: 79-87-0446Nknscwlg [Mass/volume] in Serum or PlasmaMercy Health Tiffin Hospital Work Phone: Comment on above:Expected: 06/13/2024, Expires: 09/12/2024Start: 06-13-2024 End: 60-60-1430Snftvc [Mass/volume] in Serum or PlasmaBethesda North HospitalComment on above:Expected: 06/13/2024, Expires: 09/12/2024Start: 06-13-2024 End: 91-81-6617Ztgc and Iron binding capacity panel - Serum or PlasmaBethesda North HospitalComment on above:Expected: 06/13/2024, Expires: 09/12/2024Start: 06-13-2024 End: 32-13-2637Rkqazyj evaluation of patient and amqfih6806/13/2024 9:45 AM EST Nurse Visit Hematology/Oncology [address] [place] [address] [phone] Hoda Marshall Nurse Sawyer [address] [place] [address] K65Wfftghndqd/OncologyComment on above:Z24Uzblb: 06-13-2024 End: 54-00-7350bymrxknzpjSulhumlzzh/OncologyComment on above:RTC 3 monthIVIG for hypogammaglobulinemiaStart: 06-13-2024 End: 50-62-9976Yirslgl encounter dlhcyonnh26/21/2025 8:45 AM EST Office Visit [facility] [address] [facility] [place] [address] labsNortDeckerville Community Hospital LaboratoryComment on above:labsStart: 06-06-2024 End: 64-87-7483FL Breast - bilateral ScreeningBilateral screening mammogram Imaging Routine Breast cancer screening by mammogram Expected: 06/06/2024 (Approximate), Expires: 08/04/2025[facility] Work Phone: comment on above:Expected: 06/06/2024 (Approximate), Expires: 08/04/2025Start: 06-06-2024 End: 07-03-4974FC Breast - left DiagnosticLeft diagnostic mammogram Imaging Routine Breast nodule Expected: 06/06/2024 (Approximate), Expires: 08/04/2025 [facility] HealthcareComment on above:Expected: 06/06/2024 (Approximate), Expires: 08/04/2025Start: 06-06-2024 End: 68-59-9147Ratsnbo encounter procedureNOMS BCP OBComment on above:REFILL- Benlysta- PAx 02/11/25Start: 05-29-2024 End: 43-81-5267Wcmgxmh evaluation of patient and rtforl9405/29/2024 9:30 AM EST Nurse Visit Hematology/Oncology [address] [place] [address] [phone] Joanna Ut Nurse Sawyer [address] [place] [place] [address] N43Yuvbmgntop/OncologyComment on above:K08Aqrfe: 05-19-2024 End: 33-58-2986qvkaghvxez80/27/2024 9:30 AM EST Infusion Center Hematology/Oncology [address] [place] [address] IVIG for hypogammaglobulinemiaHematology/OncologyComment on above:IVIG for hypogammaglobulinemiaStart: 05-12-2024 End: 17-07-2920Cdyktuquu Bxkbwbfx79/20/2024 10:00 AM EST Specialty Pharmacy [facility] [address] [place] [address] Drive [id number] [address] Pharmacist, [facility] [address] [place] [address] [address] [place] [address] REFILL- Benlysta- PAx 02/11/25- [facility] PharmacyComment on above:REFILL- Benlysta- PAx 02/11/25- Start: 04-28-2024 End: 85-20-3954MH.doppler Extremity arteries - bilateral for physiologic artery studyVas art doppler lwr bilat mult lev/PVR Vascular Ultrasound Routine Peripheral vascular disease, unspecified (CMS-HCC) Cold extremities Systemic lupus erythematosus ([facility]) Expected: 04/28/2024, Expires: 04/28/2025[facility] Work Phone: Comment on above:Expected: 04/28/2024, Expires: 04/28/2025Start: 04-24-2024 End: 84-30-3997Lsedrcx evaluation of patient and nuzrcz1204/24/2024 9:30 AM EST Nurse Visit Hematology/Oncology [address] [place] [address] [place] [address] Hoda Marshall Nurse Sawyer [address] [place] [address] [place] [address] R19Sxbckiuesz/OncologyComment on above:P05Ejzdb: 04-18-2024 End: 12-64-6195Kbnvdqb evaluation of patient and reportHomeworth Gastroenterology and Endoscopy CenterComment on above:referSiboStart: 04-14-2024 End: 68-77-6481xrzmuwyzmyTpncfomytb/OncologyComment on above:IVIG for hypogammaglobulinemiaREFILL- Benlysta- PAx 02/11/25- Start: 04-11-2024 End: 00-11-0340Bszpnapbf PharmacyCCF Specialty PharmacyComment on above:REFILL- Benlysta- PAx 02/11/25- NCA REFILL- Benlysta- PAx 02/11/25- Start: 04-06-2024 End: 41-18-3821DJ.doppler Extremity arteries - bilateral for physiologic artery studyVas art doppler lwr bilat mult lev/PVR Vascular Ultrasound Routine Cold extremities Pain of lower extremity, unspecified laterality Systemic lupus erythematosus ([facility]) Expected: 04/06/2024, Expires: 2025[facility] Work Phone: Comment on above:Expected: 04/06/2024, Expires: 2025Start: 03-28-2024 End: 46-39-3418humxodytbv17/05/2024 1:[address] [facility] Hematology/Oncology [address] [place] [address] Vera Najera MD [address] [place] [address] 13 wk virtual after labs last weekHematology/OncologyComment on above:13 wk virtual after labs last weekStart: 03-23-2024 End: 62-21-9844nJBJ in Blood by Coagulation assayAPTT Lab Routine Menorrhagia with regular cycle Expected: 03/23/2024 (Approximate), Expires: 03/23/2025[facility] HealthcareComment on above:Expected: 03/23/2024 (Approximate), Expires: 03/23/2025Start: 03-23-2024 End: 82-37-1018YZ for pregnancyUS PELVIS-TRANSVAG IF INDICATED Imaging Routine Menorrhagia with regular cycle Expected: 03/23/2024(Approximate), Expires: 03/23/2025[facility] HealthcareComment on above:Expected: 03/23/2024 (Approximate), Expires: 03/23/2025Start: 03-21-2024 End: 82-33-2039Salosiw evaluation of patient and nnlehu3403/21/2024 11:45 AM EDT Nurse Visit Hematology/Oncology [address] [place] [address] [place] [address] Hoda Marshall Nurse Sawyer [address] [place] [address] m89Hdudosvsrc/OncologyComment on above:t27Nvgdg: 03-21-2024 End: 01-44-0944Xgtqrxx encounter dhvnjagza80/29/2024 11:15 AM EDT Office Visit [facility] [address] [place] [address] LAbNortDeckerville [facility] LaboratoryComment on above:LAbStart: 03-20-2024 End: 53-12-049112315391-oykjlumotqyoxe D3 [Mass/volume] in Serum or PlasmaVITAMIN D 25 HYDROXY Lab Routine Vitamin D deficiency Expected: 03/20/2024 (Approximate), Expires: 12/29/2024[facility] ClinicComment on above:Expected: 03/20/2024 (Approximate), Expires: 12/29/2024Start: 03-20-2024 End: 43-92-2933LRCLE TB SCREENBLOOD TB SCREEN Lab Routine Screening-pulmonary TB Expected: 03/20/2024 (Approximate), Expires: 12/29/2024[facility] ClinicComment on above:Expected: 03/20/2024 (Approximate), Expires: 12/29/2024Start: 03-20-2024 End: 12-29-2024 reactive protein [Mass/volume] in Serum or PlasmaC-REACTIVE PROTEIN Lab Routine Elevated C-reactive protein (CRP) Elevated sed rate Expected: 03/20/2024 (Approximate), Expires: 12/29/2024[facility] ClinicComment on above:Expected: 03/20/2024 (Approximate), Expires: 12/29/2024Start: 03-20-2024 End: 46-08-1885JYP W Auto Differential panel - BloodCOMPLETE BLOOD COUNT AND DIFFERENTIAL Lab Routine Megaloblastic anemia due to vitamin B12 deficiency Elevated sed rate Obstructive sleep apnea syndrome Expected: 03/20/2024 (Approximate), Expires: 06/19/2024[facility] ClinicComment on above:Expected: 03/20/2024 (Approximate), Expires: 06/19/2024Start: 03-20-2024 End: 66-46-8307Ycseulsuz (Vitamin B12) [Mass/volume] in Serum or PlasmaVITAMIN B12 Lab Routine Megaloblastic anemia due to vitamin B12 deficiency Elevated sed rate Obstructive sleep apnea syndrome Expected: 03/20/2024 (Approximate), Expires: 06/19/2024[facility] ClinicComment on above:Expected: 03/20/2024 (Approximate), Expires: 06/19/2024Start: 03-20-2024 End: 78-89-6242Aefeavdsdnfne metabolic 2000 panel - Serum or PlasmaCOMPREHENSIVE METABOLIC PANEL Lab Routine Megaloblastic anemia due to vitamin B12 deficiency Elevated sed rate Obstructive sleep apnea syndrome Expected: 03/20/2024 (Approximate), Expires: 06/19/2024[facility] Work Phone: Comment on above:Expected: 03/20/2024 (Approximate), Expires: 06/19/2024Start: 03-20-2024 End: 40-65-5788Bdgqvlovhli sedimentation rateSEDIMENTATION RATE, WESTERGREN Lab Routine Elevated C-reactive protein (CRP) Elevated sed rate Expected: 03/20/2024 (Approximate), Expires: 12/29/2024[facility] Work Phone: Comment on above:Expected: 03/20/2024 (Approximate), Expires: 12/29/2024Start: 03-20-2024 End: 63-73-3819Kakczefu [Mass/volume] in Serum or PlasmaFERRITIN Lab Routine Megaloblastic anemia due to vitamin B12 deficiency Elevated sed rate Obstructive sleep apnea syndrome Expected: 03/20/2024 (Approximate), Expires: 06/19/2024 [facility]:Expected: 03/20/2024 (Approximate), Expires: 06/19/2024Start: 03-20-2024 End: 27-68-1697Cdpfwe [Mass/volume] in Serum or PlasmaFOLATE, SERUM Lab Routine Megaloblastic anemia due to vitamin B12 deficiency Elevated sed rate Obstructive sleep apnea syndrome Expected: 03/20/2024 (Approximate), Expires: 06/19/2024 [facility] HospitalComment on above:Expected: 03/20/2024 (Approximate), Expires: 06/19/2024Start: 03-20-2024 End: 58-77-8254AYTXIZJTFTXBPQV,IGG,IGA,IGMIMMUNOGLOBULINS,IGG,IGA,IGM Lab Routine Megaloblastic anemia due to vitamin B12 deficiency Elevatedsed rate Obstructive sleep apnea syndrome Expected: 03/20/2024 (Approximate), Expires: 06/19/2024[facility] on above:Expected: 03/20/2024 (Approximate), Expires: 06/19/2024Start: 03-20-2024 End: 61-82-8126Yeff and Iron binding capacity panel - Serum or PlasmaIRON AND TIBC Lab Routine Megaloblastic anemia due to vitamin B12 deficiency Elevated sed rate Obstructive sleep apnea syndrome Expected: 03/20/2024 (Approximate), Expires: 06/19/2024[facility] ClinicComment on above:Expected: 03/20/2024 (Approximate), Expires: 06/19/2024Start: 03-18-2024 End: 41-12-7141Bapqzah encounter qaloixahu50/26/2024 9:00 AM EDT [facility] Rheumatology [address] [place] [address] Lynne Ni MD [address] [place] [address] May offer 03/18/24 Sat REJ 4th floor in person/virtual/phone for lupusRheumatologyComment on above:May offer 03/18/24 Sat REJ 4th floor in person/virtual/phone for lupusStart: 26-29-3001Rjvchgb referralBluffton Hospital Work Phone: Start: 03-16-2024 End: 90-26-2487GH Breast - bilateralBilateral breast US complete Imaging Routine Nipple discharge Expected: 03/16/2024, Expires: 05/16/2025[facility] Work Phone: comment on above:Expected: 03/16/2024, Expires: 05/16/2025Start: 03-16-2024 End: 20-92-0688Wjczronrp PharmacyCASE[facility] Specialty PharmacyComment on above:REFILL- Benlysta- PAx 02/11/25- NCA 09/2024-l/m 03/13ArrivedStart: 03-13-2024 End: 08-41-4209Iqlbyocgn PharmacyCASEY COUNTY HOSPITAL Specialty PharmacyComment on above:REFILL- Benlysta- PAx 02/04/24- NCA 09/2024-, ND 02/23-renewal sub 02/13REFILL- Benlysta- PAx 02/11/25- NCA 09/2024-,Start: 02-22-2024 End: 06-90-3424Dipcaow evaluation of patient and tijefk0702/22/2024 11:45 AM EDT Nurse Visit Hematology/Oncology [address] [place] [address] Hoda Marshall Nurse Sawyer [address] [place] [address] o89Jkkqklihfd/OncologyComment on above:a95Snprg: 02-22-2024 End: 39-22-9553Jkktsoy encounter alwjzjnhm56/01/2024 11:15 AM EDT Office Visit [facility] [address] [place] [address] [facility] LaboratoryComment on above:LAbStart: 02-21-2024 End: 60-77-6619Tuwzrqd evaluation of patient and loohlv1502/21/2024 10:45 AM EDT Nurse Visit Hematology/Oncology [address] [place] [address] [phone] Hoda Marshall Nurse Sawyer [address] [place] [address] v98Kmjnpnweqs/OncologyComment on above:q45Evofo: 02-21-2024 End: 65-62-6738Eaulwnx encounter xjtrzbwcy94/30/2024 10:30 AM EDT Office Visit [facility] [address] [facility] [address] [place] [address] [facility] LaboratoryComment on above:LAbStart: 45-84-2571YixqgxmglOhioHealth Shelby Hospitaltart: 02-14-2024 End: 62-38-8730Fdvtav-up encounterNeurologyComment on above:Cpap follow up REFILL- Benlysta- PAx 02/04/24- NCA 09/2024-, ND 02/23Start: 02-09-2024 End: 06-59-1912Sppewra encounter pvlnunwdb94/18/2024 8:00 AM EDT Office Visit [facility] NE[facility]O [address] [place] [address] Zita Cuellar, EDUCATION ANALYST [address] [place] [address] [phone] (Work) [facility] NEURO 210Start: 01-27-2024 End: 59-12-8253Kibydvks identified in Blood by CultureBLOOD CULTURE Microbiology Routine Pseudomonas infection Expected: 01/27/2024, Expires: 04/27/2024 [facility] Work Phone: comment on above:Expected: 01/27/2024, Expires: 04/27/2024Start: 01-27-2024 End: 72-35-5867Hfhxko-up fywxlgfny88/05/2024 10:00 AM EDT [facility] Infectious Disease [address] [facility] [place] [address] Alhaji Victoria DO [address] [place] [address] follow upInfectious DiseaseComment on above:follow up Start: 01-25-2024 End: 38-23-2854Wtjvfin evaluation of patient and reportHematology/Oncology Comment on above:b12B12(change date)Start: 01-25-2024 End: 18-52-3608Joqnlww encounter procedureBrentwood Hospital LaboratoryComment on above:LAbNO LAB ORDERS LAbStart: 63-16-2584Uqmjfjtpa vaccinationInfluenza Vaccine (#1)[facility] HealthcareComment on above:Postponed from 01/22/2023 (Patient Refused)Start: 63-54-7383Gcqxa-19 Vaccine ( season)Covid-19 Vaccine ( season)[facility]2024 Covid-19 Vaccine ( season)Covid-19 Vaccine ( season) [facility]: 30-55-8110Fbcmoyhio vaccinationMorrow County Hospitaltart: 01-20-2024 End: 25-91-8444Flfqvmbzb PharmacyCCF Specialty PharmacyComment on above:refill - benlysta- NCA - pa exp: 02/04/24-pseudomonas oryzihabitans in my breastStart: 12-27-2023 End: 25-80-2913Cqpeuqr evaluation of patient and nqcphm0512/27/2023 12:00 PM EDT Nurse Visit Hematology/Oncology [address] [place] [address] Hoda Marshall Nurse Sawyer [address] [place] [address] j60Pbcclkqphr/OncologyComment on above:e57Opyer: 12-27-2023 End: 41-44-3596Bmmuhf-up vhrnnpjez33/05/2024 11:30 AM EDT Visit (SP) Office Hematology/Oncology [address] [place] [address] Neda Hill PA-C [address] [place] [address] 13 week follow up, labs 1 week beforeHematology/OncologyComment on above:13 week follow up, labs 1 week beforeStart: 12-27-2023 End: 32-06-4663Vmxgltt encounter /05/2024 11:15 AM EDT Office Visit [facility] [address] [place] [address] [place] [address] LAbNortDeckerville Community [facility] LaboratoryComment on above:LAbStart: 12-13-2023 End: 67-85-7385Tmmchlyie Exlnofzx58/22/2024 10:00 AM EDT Specialty Pharmacy [facility] [address] [place] [address] [id number], [place] [address] Pharmacist, [facility] [address] [place] [address] [address] [address] refill - benlysta- NCA - pa exp: 02/04/24-CCF Specialty PharmacyComment on above:refill - benlysta- NCA - pa exp: 02/04/24-Start: 12-10-2023 End: 73-50-4647Mxrkbl-up xnsrkaxga39/19/2024 10:45 AM EDT Visit (SP) Office Hematology/Oncology [address] [place] [address] Vera Najera MD [address] [place] [address] 13 week follow up, labs 1 week beforeHematology/Oncology Comment on above:13 week follow up, labs 1 week beforeStart: 12-04-2023 End: 224797-xwwgrkjutjwker D3 [Mass/volume] in Serum or PlasmaVITAMIN D 25 HYDROXY Lab Routine Vitamin D deficiency Expected: 12/04/2023 (Approximate), Expires: 09/03/2024[facility] Work Phone: Comment on above:Expected: 12/04/2023 (Approximate), Expires: 09/03/2024Start: 12-04-2023 End: 09-03-2024 reactive protein [Mass/volume] in Serum or PlasmaC-REACTIVE PROTEIN Lab Routine Elevated sed rate Elevated C-reactive protein (CRP) Expected: 12/04/2023 (Approximate), Expires: 09/03/2024[facility] Work Phone: Comment on above:Expected: 12/04/2023 (Approximate), Expires: 09/03/2024Start: 12-04-2023 End: 45-93-7736EGA panel - Blood by Automated countCOMPLETE BLOOD COUNT Lab Routine Anemia of chronic disease Expected: 12/04/2023 (Approximate), Expires: 09/03/2024[facility] Work Phone: Comment on above:Expected: 12/04/2023 (Approximate), Expires: 09/03/2024Start: 12-04-2023 End: 14-48-4339Bkridbccsvlyj metabolic 2000 panel - Serum or PlasmaCOMPREHENSIVE METABOLIC PANEL Lab Routine Elevated LFTs Expected: 12/04/2023 (Approximate), Expires: 09/03/2024[facility] Work Phone: Comment on above:Expected: 12/04/2023 (Approximate), Expires: 09/03/2024Start: 12-04-2023 End: 86-54-8436Bmpgbzzflsx sedimentation rateSEDIMENTATION RATE, WESTERGREN Lab Routine Elevated sed rate Elevated C-reactive protein (CRP) Expected: 12/04/2023 (Approximate), Expires: 09/03/2024[facility] Work Phone: Comment on above:Expected: 12/04/2023 (Approximate), Expires: 09/03/2024Start: 12-03-2023 End: 51-12-1909Bilqpgc evaluation of patient and ohozhc1212/03/2023 11:00 AM EDT Nurse Visit Hematology/Oncology [address] [place] [address] [place] [address] Hoda Marshall Nurse Sawyer [address] [place] [address] q37Uyixnodtoc/OncologyComment on above:k31Tupbm: 12-03-2023 End: 52-23-5938Hkhhwpm encounter hbqemhizn70/12/2024 10:45 AM EDT Office Visit [facility] [address] [place] [address] [place] [address] labNortDeckerville Community Hospital LaboratoryComment on above:labStart: 12-02-2023 End: 52-13-7601WLS W Auto Differential panel - BloodCOMPLETE BLOOD COUNT AND DIFFERENTIAL Lab Routine Megaloblastic anemia due to vitamin B12 deficiency High total serum IgM Expected: 12/02/2023 (Approximate), Expires: 09/08/2024 [facility] Work Phone: Comment on above:Expected: 12/02/2023 (Approximate), Expires: 09/08/2024Start: 12-02-2023 End: 14-27-0051Uhcuijjjm (Vitamin B12) [Mass/volume] in Serum or PlasmaVITAMIN B12 Lab Routine Megaloblastic anemia due to vitamin B12 deficiency High total serum IgM Expected: 12/02/2023 (Approximate), Expires: 09/08/2024[facility] Work Phone: Comment on above:Expected: 12/02/2023 (Approximate), Expires: 09/08/2024Start: 12-02-2023 End: 82-68-4028Mzggiposqrvif metabolic 2000 panel - Serum or PlasmaCOMPREHENSIVE METABOLIC PANEL Lab Routine Megaloblastic anemia due to vitamin B12 deficiency High total serum IgM Expected: 12/02/2023 (Approximate), Expires: 09/08/2024 [facility] Work Phone: Comment on above:Expected: 12/02/2023 (Approximate), Expires: 09/08/2024Start: 12-02-2023 End: 84-01-9178Zknnaysuznk sedimentation rateSEDIMENTATION RATE, WESTERGREN Lab Routine Megaloblastic anemia due to vitamin B12 deficiency High total serum IgM Expected: 12/02/2023 (Approximate), Expires: 03/02/2024[facility] Work Phone: Comment on above:Expected: 12/02/2023 (Approximate), Expires: 03/02/2024Start: 12-02-2023 End: 13-24-2372Msnlwxkl [Mass/volume] in Serum or PlasmaFERRITIN Lab Routine Megaloblastic anemia due to vitamin B12 deficiency High total serum IgM Expecte d: 12/02/2023 (Approximate), Expires: 09/08/2024[facility] Work Phone: Comment on above:Expected: 12/02/2023 (Approximate), Expires: 09/08/2024Start: 12-02-2023 End: 69-26-9730Dsatsj [Mass/volume] in Serum or PlasmaFOLATE, SERUM Lab Routine Megaloblastic anemia due to vitamin B12 deficiency High total serum IgM Ex pected: 12/02/2023 (Approximate), Expires: 09/08/2024[facility] Work Phone: Comment on above:Expected: 12/02/2023 (Approximate), Expires: 09/08/2024Start: 12-02-2023 End: 55-43-5747TqO [Mass/volume] in Serum or PlasmaIMMUNOGLOBULIN A Lab Routine Megaloblastic anemia due to vitamin B12 deficiency High total serum IgM Expected: 12/02/2023 (Approximate), Expires: 03/02/2024[facility] Work Phone: Comment on above:Expected: 12/02/2023 (Approximate), Expires: 03/02/2024Start: 12-02-2023 End: 87-49-1094QpV [Units/volume] in Serum or PlasmaIMMUNOGLOBULIN E Lab Routine Megaloblastic anemia due to vitamin B12 deficiency High total serum IgM Expected: 12/02/2023 (Approximate), Expires: 03/02/2024[facility] Work Phone: Comment on above:Expected: 12/02/2023 (Approximate), Expires: 03/02/2024Start: 12-02-2023 End: 27-60-5829MwF [Mass/volume] in Serum or PlasmaIMMUNOGLOBULIN G Lab Routine Megaloblastic anemia due to vitamin B12 deficiency High total serum IgM Expected: 12/02/2023 (Approximate), Expires: 03/02/2024[facility] Work Phone: Comment on above:Expected: 12/02/2023 (Approximate), Expires: 03/02/2024Start: 12-02-2023 End: 47-17-8873HlU [Mass/volume] in Serum or PlasmaIMMUNOGLOBULIN M Lab Routine Megaloblastic anemia due to vitamin B12 deficiency High total serum IgM Expected: 12/02/2023 (Approximate), Expires: 03/02/2024[facility] Work Phone: Comment on above:Expected: 12/02/2023 (Approximate), Expires: 03/02/2024Start: 12-02-2023 End: 38-19-4884Tlxp and Iron binding capacity panel - Serum or PlasmaIRON AND TIBC Lab Routine Megaloblastic anemia due to vitamin B12 deficiency High total serum IgM Expected: 12/02/2023 (Approximate), Expires: 09/08/2024[facility] Work Phone: Comment on above:Expected: 12/02/2023 (Approximate), Expires: 09/08/2024Start: 11-29-2023 End: 31-20-1523Xzhepsz evaluation of patient and smosqn1411/29/2023 2:15 PM EDT Nurse Visit Hematology/Oncology [address] [place] [address] Hoda Marshall Nurse Sawyer [address] [place] [address] z32Vqkhjhettf/OncologyComment on above:k48Rrajs: 11-15-2023 End: 32-65-8675Igvkhvzud Uslnmwjv47/24/2024 10:00 AM EDT Specialty Pharmacy [facility] [address] [place] [address] Pharmacist, [facility] [address] [place] [address] [address] [place] [address] refill - benlysta- NCA - pa exp: 02/04/24-CCF Specialty PharmacyComment on above:refill - benlysta- NCA - pa exp: 02/04/24-Start: 10-29-2023 End: 79-92-1396Ztzgelj evaluation of patient and lsdgmy7310/29/2023 11:00 AM EDT Nurse Visit Hematology/Oncology [address] [place] [address] Hoda Marshall Nurse Sawyer [address] [place] [address] p48Ycqhhuewdt/OncologyComment on above:s65Ozlmu: 10-15-2023 End: 48-37-4799Atkxtkkot Dyxtntmt74/24/2024 10:00 AM EDT Specialty Pharmacy [facility] [address] [place] [address] Pharmacist, [facility] [address] [place] [address] [place] [address] refill - benlysta-- pa exp: 02/04/24-l/m 10/11CC Specialty PharmacyComment on above:refill - benlysta-Thurs- pa exp: 02/04/24-l/m art: 10-12-2023 End: 21-85-1292Vhxppcgto Sxhqiunj09/21/2024 10:00 AM EDT Specialty [facility]acy [facility] [address] [place] [id number] Pharmacist, [facility] [address] [place] [address] [address] [place] [address] refill - benlysta-Thurs- pa exp: 02/04/24-CC Specialty PharmacyComment on above:refill - benlysta-Thurs- pa exp: 02/04/24-Start: 10-05-2023 End: 89-02-1029Taqjuof encounter ibocgtepr50/14/2024 8:00 AM EDT [facility] Rheumatology [address] [place] [address] Lynne Ni MD [address] [place], [place] [phone] 6 mo f/u for LupusRheumatologyComment on above:6 mo f/u for LupusStart: 10-01-2023 End: 25-43-8403Ifwwlme evaluation of patient and uxkqgz6810/01/2023 11:00 AM EDT Nurse Visit Hematology/Oncology [address] [place] [address] Hoda Marshall Nurse Sawyer [address] [place] [address] s74Milzuddggs/OncologyComment on above:j96Quzjb: 09-16-2023 End: 15-18-7170Wciexojdk Zgozyarg28/25/2024 10:00 AM EDT Specialty Pharmacy [facility] [address] [place] [id number] Pharmacist, [facility] [address] [place] [address] DR [address], [facility] 22 refill - benlysta-- pa exp: 02/04/24-[facility] PharmacyComment on above:refill - benlysta-- pa exp: 02/04/24-lvmStart: 09-13-2023 End: 18-85-0137Zysxlub encounter mdycdqkby41/22/2024 9:00 AM EDT Office Visit [facility] [address] [place] [address] Kade Early MD [address] [facility] [address] [place] [phone] [facility] NEURStart: 07-19-2023 End: 12-42-0209Aspelaj encounter procedureMercyhealth Mercy Hospitaltart: 07-15-2023 End: 65-22-8693Wbymqyd encounter zmjnevoci69/22/2024 10:50 AM EST Office Visit [facility] DERM [address] [place] [address] Bernabe English MD [address] [place] [address] [facility] DERMStart: 07-06-2023 End: 67-86-9216Fewpbae encounter lbikbiisn58/13/2024 2:30 PM EST Office Visit [facility] NE[facility]O [address] [facility] [address] [place] [phone] Kade Early MD [address] [facility] [address] [place] [address] [facility] NEURO 210Start: 07-06-2023 End: 59-17-6679Pmgbcch electrophoresis, serumProtein electrophoresis, serum Lab Routine Autoimmune disease (CMS/HCC) Autonomic dysfunction Expected: 07/06/2023 (Approximate), Expires: 07/06/2024[facility] Work Phone: Comment on above:Expected: 07/06/2023 (Approximate), Expires: 07/06/2024Start: 07-06-2023 End: 74-24-7095Hcuikvj electrophoresis, urineProtein electrophoresis, urine Lab Routine Autoimmune disease (CMS/HCC) Autonomic dysfunction Expected: 07/06/2023 (Approximate), Expires: 07/06/2024[facility] HealthcareComment on above:Expected: 07/06/2023 (Approximate), Expires: 07/06/2024Start: 06-09-2023 End: 16-00-6241Ebkhzz monitor studyHolter Or Event Security Manager Cardiac Services Routine Irregular heart rate Expected: 06/09/2023 (Approximate), Expires: 06/09/2024[facility] Work Phone: Comment on above:Expected: 06/09/2023 (Approximate), Expires: 06/09/2024Start: 06-09-2023 End: 18-08-4728Pfvdt 1996 panel - Serum or PlasmaLipid Panel Lab Routine Primary hypertension Expected: 06/09/2023 (Approximate), Expires: 06/09/2024[facility] Work Phone: Comment on above:Expected: 06/09/2023 (Approximate), Expires: 06/09/2024Start: 06-09-2023 End: 68-56-7492Feqvmedycfp [Units/volume] in Serum or PlasmaThyroid Stimulating Hormone Lab Routine Irregular heart rate Expected: 06/09/2023 (Approximate), Exp ires: 06/09/2024[facility] Work Phone: Comment on above:Expected: 06/09/2023 (Approximate), Expires: 06/09/2024Start: 06-09-2023 End: 49-47-4325Sdtikhrfl (T4) free [Mass/volume] in Serum or PlasmaThyroxine, Free Lab Routine Irregular heart rate Expected: 06/09/2023 (Approximate), Expires: 06/09/2024[facility] Work Phone: Comment on above:Expected: 06/09/2023 (Approximate), Expires: 06/09/2024Start: 06-09-2023 End: 02-46-1825QC Heart TransthoracicTransthoracic Echo (TTE) Complete Echocardiography Routine Irregular heart rate Obstructive sleep apnea syndrome Expected: 06/09/2023 (Approximate), Expires: 06/09/2025[facility] Work Phone: Comment on above:Expected: 06/09/2023 (Approximate), Expires: 06/09/2025Start: 04-25-2023 End: 023538-ijyevbxgktebjg D3 [Mass/volume] in Serum or PlasmaVITAMIN D 25 HYDROXY Lab Routine Vitamin D deficiency Expected: 04/25/2023 (Approximate), Expires: 01/25/2024[facility] Work Phone: Comment on above:Expected: 04/25/2023 (Approximate), Expires: 01/25/2024Start: 04-25-2023 End: 01-25-2024 reactive protein [Mass/volume] in Serum or PlasmaC-REACTIVE PROTEIN (CRP) Lab Routine Elevated sed rate Elevated C-reactive protein (CRP) Expected: 04/25/2023 (Approximate), Expires: 01/25/2024[facility] Work Phone: Comment on above:Expected: 04/25/2023 (Approximate), Expires: 01/25/2024Start: 04-25-2023 End: [id number] panel - Blood by Automated countCBC Lab Routine Anemia of chronic disease Expected: 04/25/2023 (Approximate), Expires: 01/25/2024[facility] Work Phone: Comment on above:Expected: 04/25/2023 (Approximate), Expires: 01/25/2024Start: 04-25-2023 End: 55-74-3827Hifhtecqhwzbp metabolic 2000 panel - Serum or PlasmaCOMP METABOLIC PANEL Lab Routine Elevated LFTs Expected: 04/25/2023 (Approximate), Expires: 01/25/2024[facility] Work Phone: Comment on above:Expected: 04/25/2023 (Approximate), Expires: 01/25/2024Start: 04-25-2023 End: 31-67-7282Gksiwlfdilz sedimentation rateSED RATE WESTERGREN Lab Routine Elevated sed rate Elevated C-reactive protein (CRP) Expected: 04/25/2023 (Approximate), Expires: 01/25/2024[facility] Work Phone: Comment on above:Expected: 04/25/2023 (Approximate), Expires: 01/25/2024Start: 61-35-3711ZKUXB-19 Vaccine (4 - Pfizer risk series) COVID-19 Vaccine (4 - Pfizer risk series)[facility]: 18-19-9467Bzokb-19 Vaccine ( - season)Covid-19 Vaccine ( - )[facility] 62-69-9005Neilf-19 Vaccine () Covid-19 Vaccine ( - )[facility] End: 46-30-6361YFL W Auto Differential panel - BloodCBC + DIFF Lab Routine Megaloblastic anemia due to vitamin B12 deficiency Elevated sed rate Chronic fatigue and malaise High total serum IgM JOSE RAFAEL (obstructive sleep apnea) Expected: 04/16/2023 (Approximate), Expires: 02/20/2024[facility] Work Phone: Comment on above:Expected: 04/16/2023 (Approximate), Expires: 02/20/2024Start: 04-16-2023 End: 86-24-9083Tggfyxmmd (Vitamin B12) [Mass/volume] in Serum or PlasmaVITAMIN B12 BLOOD Lab Routine Megaloblastic anemia due to vitamin B12 deficiency Elevated sed rate Chronic fatigue and malaise High total serum IgM JOSE RAFAEL (obstructive sleep apnea) Expected: 04/16/2023 (Approximate), Expires: 02/20/2024[facility] Work Phone: Comment on above:Expected: 04/16/2023 (Approximate), Expires: 02/20/2024Start: 04-16-2023 End: 14-33-8834Tfkmfexjwxqqq metabolic 2000 panel - Serum or PlasmaCOMP METABOLIC PANEL Lab Routine Megaloblastic anemia due to vitamin B12 deficiency Elevated sed rate Chronic fatigue and malaise High total serum IgM JOSE RAFAEL (obstructive sleep apnea) Expected: 04/16/2023 (Approximate), Expires: 02/20/2024[facility] Work Phone: Comment on above:Expected: 04/16/2023 (Approximate), Expires: 02/20/2024Start: 04-16-2023 End: 15-21-5671Xgatlqxe [Mass/volume] in Serum or PlasmaFERRITIN BLD Lab Routine Megaloblastic anemia due to vitamin B12 deficiency Elevated sed rate Chronic fatigue and malaise High total serum IgM JOSE RAFAEL (obstructive sleep apnea) Expected: 04/16/2023 (Approximate), Expires: 02/20/2024[facility] Work Phone: Comment on above:Expected: 04/16/2023 (Approximate), Expires: 02/20/2024Start: 04-16-2023 End: 27-68-3332Pkpspm [Mass/volume] in Serum or PlasmaFOLATE SERUM Lab Routine Megaloblastic anemia due to vitamin B12 deficiency Elevated sed rate Chronic fatigue and malaise High total serum IgM JOSE RAFAEL (obstructive sleep apnea) Expected: 04/16/2023 (Approximate), Expires: 02/20/2024[facility] Work Phone: Comment on above:Expected: 04/16/2023 (Approximate), Expires: 02/20/2024Start: 04-16-2023 End: 19-72-8819Cane and Iron binding capacity panel - Serum or PlasmaIRON + TIBC Lab Routine Megaloblastic anemia due to vitamin B12 deficiency Elevated sed rate Chronic fatigue and malaise High total serum IgM JOSE RAFAEL (obstructive sleep apnea) Expected: 04/16/2023 (Approximate), Expires: 02/20/2024[facility] Work Phone: Comment on above:Expected: 04/16/2023 (Approximate), Expires: 02/20/2024Start: 10-42-0940UDFNV-19 Vaccine (3 - Pfizer risk series) COVID-19 Vaccine (3 - Pfizer risk series)[facility]: 40-49-8193Vbavkurv mellitus screeningDiabetes ScreeningMain Campus Medical Center: 03-10-2023 End: 87-67-7611Xhrgnup [Units/volume] in Serum or PlasmaINSULIN ASSAY BLOOD Lab Routine Insulin resistance, unspecified Expected: 03/10/2023, Expires: 06/09[facility] Work Phone: comment on above:Expected: 03/10/2023, Expires: 06/09/2023Start: 03-10-2023 End: 25-96-0700FLJDTJS ANTIBODY BLDINSULIN ANTIBODY BLD Lab Routine Insulin resistance, unspecified Expected: 03/10/2023, Expires: 06/09/2023[facility] Work Phone: comment on above:Expected: 03/10/2023, Expires: 06/09/2023Start: 02-11-2023 End: 53-70-9965Emfc-2-Microglobulin [Mass/volume] in Serum or PlasmaB2 MICROGLOBULIN B Lab Routine Megaloblastic anemia due to vitamin B12 deficiency High total serum IgM Elevated sed rate Expected: 02/11/2023 (Approximate), Expires: 02/08/2024[facility] Work Phone: Comment on above:Expected: 02/11/2023 (Approximate), Expires: 02/08/2024Start: 02-11-2023 End: 24-54-2761Yhdoplu.ionized [Moles/volume] in BloodCALCIUM IONIZED BLOOD Lab Routine Megaloblastic anemia due to vitamin B12 deficiency High total serum IgM Elevated sed rate Expected: 02/11/2023 (Approximate), Expires: 02/08/2024 [facility] Work Phone: Comment on above:Expected: 02/11/2023 (Approximate), Expires: 02/08/2024Start: 02-11-2023 End: 64-95-9861VHR W Auto Differential panel - BloodCBC + DIFF Lab Routine Megaloblastic anemia due to vitamin B12 deficiency High total serum IgM Elevated sed rate Expected: 02/11/2023 (Approximate), Expires: 02/08/2024[facility] Work Phone: Comment on above:Expected: 02/11/2023 (Approximate), Expires: 02/08/2024Start: 02-11-2023 End: 40-60-8624Ujjwjwxlx (Vitamin B12) [Mass/volume] in Serum or PlasmaVITAMIN B12 BLOOD Lab Routine Megaloblastic anemia due to vitamin B12 deficiency High total serum IgM Elevated sed rate Expected: 02/11/2023 (Approximate), Expires: 02/08/2024[facility] Work Phone: Comment on above:Expected: 02/11/2023 (Approximate), Expires: 02/08/2024Start: 02-11-2023 End: 84-98-5341Wsokhsvfijtzi metabolic 2000 panel - Serum or PlasmaCOMP METABOLIC PANEL Lab Routine Megaloblastic anemia due to vitamin B12 deficiency High total serum IgM Elevated sed rate Expected: 02/11/2023 (Approximate), Expires: 02/08/2024[facility] Work Phone: Comment on above:Expected: 02/11/2023 (Approximate), Expires: 02/08/2024Start: 02-11-2023 End: 74-76-8325Pxtuqdbp [Mass/volume] in Serum or PlasmaFERRITIN BLD Lab Routine Megaloblastic anemia due to vitamin B12 deficiency High total serum IgM Nicole vated sed rate Expected: 02/11/2023 (Approximate), Expires: 02/08/2024[facility] Work Phone: Comment on above:Expected: 02/11/2023 (Approximate), Expires: 02/08/2024Start: 02-11-2023 End: 89-33-7495Peqqmr [Mass/volume] in Serum or PlasmaFOLATE SERUM Lab Routine Megaloblastic anemia due to vitamin B12 deficiency High total serum IgM Elevated sed rate Expected: 02/11/2023 (Approximate), Expires: 02/08/2024[facility] Work Phone: Comment on above:Expected: 02/11/2023 (Approximate), Expires: 02/08/2024Start: 02-11-2023 End: 07-37-8616Klbn and Iron binding capacity panel - Serum or PlasmaIRON + TIBC Lab Routine Megaloblastic anemia due to vitamin B12 deficiency High total serum IgM Elevated sed rate Expected: 02/11/2023 (Approximate), Expires: 02/08/2024 [facility] Work Phone: Comment on above:Expected: 02/11/2023 (Approximate), Expires: 02/08/2024Start: 02-11-2023 End: 19-26-3385BOJQN/FARMER,FREE,SERKAPPA/FARMER,FREE,SER Lab Routine Megaloblastic anemia due to vitamin B12 deficiency High total serumIgM Elevated sed rate Expected: 02/11/2023 (Approximate), Expires: 04/13/2023[facility] Work Phone: Comment on above:Expected: 02/11/2023 (Approximate), Expires: 04/13/2023Start: 02-11-2023 End: 92-47-8628Gyyeubl dehydrogenase [Enzymatic activity/volume] in Serum or PlasmaLD LACTATE DEHYDRO Lab Routine Megaloblastic anemia due to vitamin B12 deficiency High total serum IgM Elevated sed rate Expected: 02/11/2023 (Approximate), Expires: 02/08/2024[facility] Work Phone: Comment on above:Expected: 02/11/2023 (Approximate), Expires: 02/08/2024Start: 02-11-2023 End: 61-94-6923NYXCDHTFLV PROTEIN, SERUM (BLOOD)MONOCLONAL PROTEIN, SERUM (BLOOD) Lab Routine Megaloblastic anemia due to vitamin B12 deficiency High total serum IgM Elevated sed rate Expected: 02/11/2023 (Approximate), Expires: 02/08/2024[facility] Work Phone: Comment on above:Expected: 02/11/2023 (Approximate), Expires: 02/08/2024Start: 02-11-2023 End: 53-51-8897Peqdhbyrn [Mass/volume] in Serum or PlasmaPHOSPHORUS INORGANIC Lab Routine Megaloblastic anemia due to vitamin B12 deficiency High total serum IgM Elevated sed rate Expected: 02/11/2023 (Approximate), Expires: 02/08/2024 [facility] Work Phone: Comment on above:Expected: 02/11/2023 (Approximate), Expires: 02/08/2024Start: 02-11-2023 End: 72-66-9327OLPTSON ELECTROPHORESIS SERUM W/INTERPPROTEIN ELECTROPHORESIS SERUM W/INTERP Lab Routine Megaloblastic anemia due to vitamin B12 deficiency High total serum IgM Elevated sed rate Expected: 02/11/2023 (Approximate), Expires: 02/08/2024[facility] Work Phone: Comment on above:Expected: 02/11/2023 (Approximate), Expires: 02/08/2024Start: 02-11-2023 End: 23-64-0742Rkzsc [Mass/volume] in Serum or PlasmaURIC ACID BLOOD Lab Routine Megaloblastic anemia due to vitamin B12 deficiency High total serum IgMElevated sed rate Expected: 02/11/2023 (Approximate), Expires: 02/08/2024[facility] Work Phone: Comment on above:Expected: 02/11/2023 (Approximate), Expires: 02/08/2024Start: 78-42-9865Coqzvcgvx vaccinationMorrow [facility] Hospitalt[facility]: 12-17-2022 End: 41-07-3101EWH W Auto Differential panel - BloodCBC + DIFF Lab Routine Megaloblastic anemia due to vitamin B12 deficiency Expected: 12/17/2022 (Appr oximate), Expires: 10/23/2023[facility] Work Phone: Comment on above:Expected: 12/17/2022 (Approximate), Expires: 10/23/2023Start: 12-17-2022 End: 97-13-0097Lcmtdqkrr (Vitamin B12) [Mass/volume] in Serum or PlasmaVITAMIN B12 BLOOD Lab Routine Megaloblastic anemia due to vitamin B12 deficiency Expected: 12/17/2022 (Approximate), Expires: 10/23/2023[facility] Work Phone: Comment on above:Expected: 12/17/2022 (Approximate), Expires: 10/23/2023Start: 12-17-2022 End: 43-55-4180Oridlywklwuhg metabolic 2000 panel - Serum or PlasmaCOMP METABOLIC PANEL Lab Routine Megaloblastic anemia due to vitamin B12 deficiency Expected: 12/17/2022 (Approximate), Expires: 10/23/2023[facility] Work Phone: Comment on above:Expected: 12/17/2022 (Approximate), Expires: 10/23/2023Start: 12-17-2022 End: 64-09-0711Rtfznofx [Mass/volume] in Serum or PlasmaFERRITIN BLD Lab Routine Megaloblastic anemia due to vitamin B12 deficiency Expected: 12/17/2022 (Ap proximate), Expires: 10/23/2023[facility] Work Phone: Comment on above:Expected: 12/17/2022 (Approximate), Expires: 10/23/2023Start: 12-17-2022 End: 81-54-3937Ugzviv [Mass/volume] in Serum or PlasmaFOLATE SERUM Lab Routine Megaloblastic anemia due to vitamin B12 deficiency Expected: 12/17/2022 (Ap proximate), Expires: 10/23/2023[facility] Work Phone: Comment on above:Expected: 12/17/2022 (Approximate), Expires: 10/23/2023Start: 12-17-2022 End: 70-14-2861Mvhz and Iron binding capacity panel - Serum or PlasmaIRON + TIBC Lab Routine Megaloblastic anemia due to vitamin B12 deficiency Expected: 12/17/2022 (Approximate), Expires: 10/23/2023[facility] Work Phone: Comment on above:Expected: 12/17/2022 (Approximate), Expires: 10/23/2023Start: 10-23-2022 End: 21-18-898173706341-rhrhfxecxnqsnq D3 [Mass/volume] in Serum or PlasmaVITAMIN D 25 HYDROXY Lab Routine Megaloblastic anemia due to vitamin B12 deficiency Elevated sed rate High total serum IgM Chronic fatigue and malaise JOSE RAFAEL (obstructive sleep apnea) Expected: 10/23/2022, Expires: 12/23/2022[facility] Work Phone: Comment on above:Expected: 10/23/2022, Expires: 12/23/2022Start: 10-23-2022 End: 12-23-2022 reactive protein [Mass/volume] in Serum or PlasmaC-REACTIVE PROTEIN (CRP) Lab Routine Megaloblastic anemia due to vitamin B12 deficiency Elevated sed rate High total serum IgM Chronic fatigue and malaise JOSE RAFAEL (obstructive sleep apnea) Expected: 10/23/2022, Expires: 12/23/2022[facility] Work Phone: Comment on above:Expected: 10/23/2022, Expires: 12/23/2022Start: 10-23-2022 End: 54-56-0333EPD W Auto Differential panel - BloodCBC + DIFF Lab Routine Megaloblastic anemia due to vitamin B12 deficiency Elevated sed rate High total serum IgM Chronic fatigue and malaise JOSE RAFAEL (obstructive sleep apnea) Expected: 10/23/2022, Expires: 12/23/2022[facility] Work Phone: Comment on above:Expected: 10/23/2022, Expires: 12/23/2022Start: 10-23-2022 End: 94-56-3888Nyrgkpgnt (Vitamin B12) [Mass/volume] in Serum or PlasmaVITAMIN B12 BLOOD Lab Routine Megaloblastic anemia due to vitamin B12 deficiency Elevated sed rate High total serum IgM Chronic fatigue and malaise JOSE RAFAEL (obstructive sleep apnea) Expected: 10/23/2022,Expires: 12/23/2022[facility] Work Phone: Comment on above:Expected: 10/23/2022, Expires: 12/23/2022Start: 10-23-2022 End: 14-54-3299Kixzxugfnaqdl metabolic 2000 panel - Serum or PlasmaCOMP METABOLIC PANEL Lab Routine Megaloblastic anemia due to vitamin B12 deficiency Elevated sed rate High total serum IgM Chronic fatigue and malaise JOSE RAFAEL (obstructive sleep apnea) Expected: 10/23/2022, Expires: 12/23/2022[facility] Work Phone: Comment on above:Expected: 10/23/2022, Expires: 12/23/2022Start: 10-23-2022 End: 63-83-7197Nberxyuqmpd sedimentation rateSED RATE WESTERGREN Lab Routine Megaloblastic anemia due to vitamin B12 deficiency Elevated sed rate High total serum IgM Chronic fatigue and malaise JOSE RAFAEL (obstructive sleep apnea) Expected: 10/23/2022, Expires: 12/23/2022[facility] Work Phone: Comment on above:Expected: 10/23/2022, Expires: 12/23/2022Start: 10-23-2022 End: 34-55-6164Huusowe dehydrogenase [Enzymatic activity/volume] in Serum or PlasmaLD LACTATE DEHYDRO Lab Routine Megaloblastic anemia due to vitamin B12 deficiency Elevated sed rateHigh total serum IgM Chronic fatigue and malaise JOSE RAFAEL (obstructive sleep apnea) Expected: 10/23/2022, Expires: 12/23/2022[facility] Work Phone: Comment on above:Expected: 10/23/2022, Expires: 12/23/2022Start: 10-23-2022 End: 98-13-7928GMWIGOWIQE PROTEIN, SERUM (BLOOD)MONOCLONAL PROTEIN, SERUM (BLOOD) Lab Routine Megaloblastic anemia due to vitamin B12 deficiency Elevated sed rate High total serum IgM Chronic fatigue and malaise JOSE RAFAEL (obstructive sleep apnea) Expected: 10/23/2022, Expires: 12/23/2022[facility] Work Phone: Comment on above:Expected: 10/23/2022, Expires: 12/23/2022Start: 10-23-2022 End: 30-00-7488SWDK ELECT SERUM WITH DANA AND INTERPPROT ELECT SERUM WITH DANA AND INTERP Lab Routine Megaloblastic anemia due to vitamin B12 deficiencyElevated sed rate High total serum IgM Chronic fatigue and malaise JOSE RAFAEL (obstructive sleep apnea) Expected: 10/23/2022, Expires: 12/23/2022[facility] Work Phone: Comment on above:Expected: 10/23/2022, Expires: 12/23/2022Start: 09-19-2022 End: 24-93-8482HTH panel - Blood by Automated countCBC Lab Routine Anemia of chronic disease Expected: 09/19/2022 (Approximate), Expires: 08/20/2023[facility] Work Phone: Comment on above:Expected: 09/19/2022 (Approximate), Expires: 08/20/2023Start: 09-19-2022 End: 46-03-5343Btyrumjeoeahp metabolic 2000 panel - Serum or PlasmaCOMP METABOLIC PANEL Lab Routine Elevated LFTs Expected: 09/19/2022 (Approximate), Expires: 08/20/2023[facility] Work Phone: Comment on above:Expected: 09/19/2022 (Approximate), Expires: 08/20/2023Start: 09-19-2022 End: 15-84-4875QXBX PHENOTYPE/ENZYME ACTIVITYTPMT PHENOTYPE/ENZYME ACTIVITY Lab Routine Encounter for assisted current use of azathioprine Expected: 09/19/2022 (Approximate), Expires: 11/19/2022[facility] Work Phone: Comment on above:Expected: 09/19/2022 (Approximate), Expires: 11/19/2022Start: 08-28-2022 End: 79-37-418871340864-zixmfdugcnfrig D3 [Mass/volume] in Serum or PlasmaVITAMIN D 25 HYDROXY Lab Routine Megaloblastic anemia due to vitamin B12 deficiency Elevated sed rate High total serum IgM Chronic fatigue and malaise Expected: 08/28/2022 (Approximate), Expires: 10/28/2022[facility] Work Phone: Comment on above:Expected: 08/28/2022 (Approximate), Expires: 10/28/2022Start: 08-28-2022 End: 18-34-0334Essv-2-Microglobulin [Mass/volume] in Serum or PlasmaB2 MICROGLOBULIN B Lab Routine Megaloblastic anemia due to vitamin B12 deficiency Elevated sed rateHigh total serum IgM Chronic fatigue and malaise Expected: 08/28/2022 (Approximate), Expires: 07/26/2023[facility] Work Phone: Comment on above:Expected: 08/28/2022 (Approximate), Expires: 07/26/2023Start: 08-28-2022 End: 10-28-2022 reactive protein [Mass/volume] in Serum or PlasmaC-REACTIVE PROTEIN (CRP) Lab Routine Megaloblastic anemia due to vitamin B12 deficiency Elevated sed rate High total serum IgM Chronic fatigue and malaise Expected: 08/28/2022 (Approximate), Expires:10/28/2022[facility] Work Phone: Comment on above:Expected: 08/28/2022 (Approximate), Expires: 10/28/2022Start: 08-28-2022 End: 87-02-4530Kxkqwzg.ionized [Moles/volume] in BloodCALCIUM IONIZED BLOOD Lab Routine Megaloblastic anemia due to vitamin B12 deficiency Elevated sed rate High total serum IgM Chronic fatigue and malaise Expected: 08/28/2022 (Approximate), Expires: 07/26/2023[facility] Work Phone: Comment on above:Expected: 08/28/2022 (Approximate), Expires: 07/26/2023Start: 08-28-2022 End: 35-79-9154NFI W Auto Differential panel - BloodCBC + DIFF Lab Routine Megaloblastic anemia due to vitamin B12 deficiency Elevated sed rate High total serum IgM Chronic fatigue and malaise Expected: 08/28/2022 (Approximate), Expires: 07/26/2023[facility] Work Phone: Comment on above:Expected: 08/28/2022 (Approximate), Expires: 07/26/2023Start: 08-28-2022 End: 15-57-4066Acosdmkfg (Vitamin B12) [Mass/volume] in Serum or PlasmaVITAMIN B12 BLOOD Lab Routine Megaloblastic anemia due to vitamin B12 deficiency Elevated sed rate High total serum IgM Chronic fatigue and malaise Expected: 08/28/2022 (Approximate), Expires: 10/28/2022[facility] Work Phone: Comment on above:Expected: 08/28/2022 (Approximate), Expires: 10/28/2022Start: 08-28-2022 End: 78-87-2168Jhmocgjgkkbdf metabolic 2000 panel - Serum or PlasmaCOMP METABOLIC PANEL Lab Routine Megaloblastic anemia due to vitamin B12 deficiency Elevated sed rate High total serum IgM Chronic fatigue and malaise Expected: 08/28/2022 (Approximate), Expires: 07/26/2023[facility] Work Phone: Comment on above:Expected: 08/28/2022 (Approximate), Expires: 07/26/2023Start: 08-28-2022 End: 99-75-5785Nnvtzetamig sedimentation rateSED RATE WESTERGREN Lab Routine Megaloblastic anemia due to vitamin B12 deficiency Elevated sed rate High total serum IgM Chronic fatigue and malaise Expected: 08/28/2022 (Approximate), Expires: 10/28/2022[facility] Work Phone: Comment on above:Expected: 08/28/2022 (Approximate), Expires: 10/28/2022Start: 08-28-2022 End: 25-48-7105YISNS/FARMER,FREE,SERKAPPA/FARMER,FREE,SER Lab Routine Megaloblastic anemia due to vitamin B12 deficiency Elevated sed rate High total serum IgM Chronic fatigue and malaise Expected: 08/28/2022 (Approximate), Expires: 10/28[facility] Work [facility]: Comment on above:Expected: 08/28/2022 (Approximate), Expires: 10/28/2022Start: 08-28-2022 End: 81-41-9554Waamnes dehydrogenase [Enzymatic activity/volume] in Serum or PlasmaLD LACTATE DEHYDRO Lab Routine Megaloblastic anemia due to vitamin B12 deficiency Elevated sed rateHigh total serum IgM Chronic fatigue and malaise Expected: 08/28/2022 (Approximate), Expires: 07/26/2023[facility] Work Phone: Comment on above:Expected: 08/28/2022 (Approximate), Expires: 07/26/2023Start: 08-28-2022 End: 11-41-3668XMOILCDVGK PROTEIN, SERUM (BLOOD)MONOCLONAL PROTEIN, SERUM (BLOOD) Lab Routine Megaloblastic anemia due to vitamin B12 deficiency Elevated sed rate High total serum IgM Chronic fatigue and malaise Expected: 08/28/2022 (Approximate),Expires: 07/26/2023[facility] Work Phone: Comment on above:Expected: 08/28/2022 (Approximate), Expires: 07/26/2023Start: 08-28-2022 End: 49-05-5204Aqafmhpqj [Mass/volume] in Serum or PlasmaPHOSPHORUS INORGANIC Lab Routine Megaloblastic anemia due to vitamin B12 deficiency Elevated sed rate High total serum IgM Chronic fatigue and malaise Expected: 08/28/2022 (Approximate), Expires: 07/26/2023[facility] Work Phone: Comment on above:Expected: 08/28/2022 (Approximate), Expires: 07/26/2023Start: 08-28-2022 End: 34-08-5616AGZLIRL ELECTROPHORESIS SERUM W/INTERPPROTEIN ELECTROPHORESIS SERUM W/INTERP Lab Routine Megaloblastic anemia due to vitamin B12 deficiency Elevated sed rate High total serum IgM Chronic fatigue and malaise Expected: 08/28/2022 (Approximate), Expires: 07/26/2023[facility] Work Phone: Comment on above:Expected: 08/28/2022 (Approximate), Expires: 07/26/2023Start: 08-28-2022 End: 81-65-0619Oukob [Mass/volume] in Serum or PlasmaURIC ACID BLOOD Lab Routine Megaloblastic anemia due to vitamin B12 deficiency Elevated sed rate High total serum IgM Chronic fatigue and malaise Expected: 08/28/2022 (Approximate), Expires: 07/26/2023[facility] Work Phone: Comment on above:Expected: 08/28/2022 (Approximate), Expires: 07/26/2023Start: 07-15-2022 End: 90-83-3733Lnlo-2-Microglobulin [Mass/volume] in Serum or PlasmaB2 MICROGLOBULIN B Lab Routine High total serum IgM Expected: 07/15/2022 (Approximate), Expires: 05/20/2023[facility] Work Phone: Comment on above:Expected: 07/15/2022 (Approximate), Expires: 05/20/2023Start: 07-15-2022 End: 34-08-7542Vldhggl.ionized [Moles/volume] in BloodCALCIUM IONIZED BLOOD Lab Routine High total serum IgM Expected: 07/15/2022 (Approximate), Expires: 05/20/2023[facility] Work Phone: Comment on above:Expected: 07/15/2022 (Approximate), Expires: 05/20/2023Start: 07-15-2022 End: 41-99-1256AMQ W Auto Differential panel - BloodCBC + DIFF Lab Routine High total serum IgM Expected: 07/15/2022 (Approximate), Expires: 05/20/2023[facility] Work Phone: Comment on above:Expected: 07/15/2022 (Approximate), Expires: 05/20/2023Start: 07-15-2022 End: 95-63-5742Tvmmyqgfilcxg metabolic 2000 panel - Serum or PlasmaCOMP METABOLIC PANEL Lab Routine High total serum IgM Expected: 07/15/2022 (Approximate), Expires: 05/20/2023[facility] Work Phone: Comment on above:Expected: 07/15/2022 (Approximate), Expires: 05/20/2023Start: 07-15-2022 End: 09-44-1286XDNTD/FARMER,FREE,SERKAPPA/FARMER,FREE,SER Lab Routine High total serum IgM Expected: 07/15/2022 (Approximate), Expires: 09/14/2022[facility] Work Phone: Comment on above:Expected: 07/15/2022 (Approximate), Expires: 09/14/2022Start: 07-15-2022 End: 10-35-1916Hbrtkdr dehydrogenase [Enzymatic activity/volume] in Serum or PlasmaLD LACTATE DEHYDRO Lab Routine High total serum IgM Expected: 07/15/2022 (Approximate), Expires: 05/20/2023[facility] Work Phone: Comment on above:Expected: 07/15/2022 (Approximate), Expires: 05/20/2023Start: 07-15-2022 End: 67-60-7975ISUCXELMJN PROTEIN, SERUM (BLOOD)MONOCLONAL PROTEIN, SERUM (BLOOD) Lab Routine High total serum IgM Expected: 07/15/2022 (Approximate), Expires: 05/20/2023[facility] Work Phone: Comment on above:Expected: 07/15/2022 (Approximate), Expires: 05/20/2023Start: 07-15-2022 End: 47-99-3598Bgkefhhna [Mass/volume] in Serum or PlasmaPHOSPHORUS INORGANIC Lab Routine High total serum IgM Expected: 07/15/2022 (Approximate), Expires: 1 07/21/2022[facility] Work Phone: Comment on above:Expected: 07/15/2022 (Approximate), Expires: 05/20/2023Start: 07-15-2022 End: 18-41-4270JTYMMTZ ELECTROPHORESIS SERUM W/INTERPPROTEIN ELECTROPHORESIS SERUM W/INTERP Lab Routine High total serum IgM Expected: 07/15/2022 (Approx imate), Expires: 05/20/2023[facility] Work Phone: Comment on above:Expected: 07/15/2022 (Approximate), Expires: 05/20/2023Start: 07-15-2022 End: 37-02-7151Xfjwa [Mass/volume] in Serum or PlasmaURIC ACID BLOOD Lab Routine High total serum IgM Expected: 07/15/2022 (Approximate), Expires: 05/20/2023 [facility] Work Phone: Comment on above:Expected: 07/15/2022 (Approximate), Expires: 05/20/2023Start: 06-05-2022 End: 93-91-847574524149-fpsydxbtxjpwiz D3 [Mass/volume] in Serum or PlasmaVITAMIN D 25 HYDROXY Lab Routine Vitamin D deficiency Expected: 06/05/2022 (Approximate), Expires: 03/05/2023[facility] Work Phone: Comment on above:Expected: 06/05/2022 (Approximate), Expires: 03/05/2023Start: 06-05-2022 End: 03-05-2023 reactive protein [Mass/volume] in Serum or PlasmaC-REACTIVE PROTEIN (CRP) Lab Routine Elevated sed rate Elevated C-reactive protein (CRP) Expected: 06/05/2022 (Approximate), Expires: 03/05/2023[facility] Work Phone: Comment on above:Expected: 06/05/2022 (Approximate), Expires: 03/05/2023Start: 06-05-2022 End: 17-92-4828Eizpnoarc (Vitamin B12) [Mass/volume] in Serum or PlasmaVITAMIN B12 BLOOD Lab Routine Vitamin B12 deficiency Expected: 06/05/2022 (Approximate), Expires: 03/05/2023[facility] Work Phone: Comment on above:Expected: 06/05/2022 (Approximate), Expires: 03/05/2023Start: 06-05-2022 End: 58-95-0925Gxdpwqsjolg sedimentation rateSED RATE WESTERGREN Lab Routine Elevated sed rate Elevated C-reactive protein (CRP) Expected: 06/05/2022 (Approximate), Expires: 03/05/2023[facility] Work Phone: Comment on above:Expected: 06/05/2022 (Approximate), Expires: 03/05/2023Start: 05-06-2022 End: 34-37-4265Pwqm-2-Microglobulin [Mass/volume] in Serum or PlasmaB2 MICROGLOBULIN B Lab Routine Megaloblastic anemia due to vitamin B12 deficiency High total serum IgM Expected: 05/06/2022 (Approximate), Expires: 03/18/2023 [facility] Work Phone: Comment on above:Expected: 05/06/2022 (Approximate), Expires: 03/18/2023Start: 05-06-2022 End: 30-18-0710Dkcvedp.ionized [Moles/volume] in BloodCALCIUM IONIZED BLOOD Lab Routine Megaloblastic anemia due to vitamin B12 deficiency High total serum IgM Expected: 05/06/2022 (Approximate), Expires: 03/18/2023[facility] Work Phone: Comment on above:Expected: 05/06/2022 (Approximate), Expires: 03/18/2023Start: 05-06-2022 End: 69-67-0489VFW W Auto Differential panel - BloodCBC + DIFF Lab Routine Megaloblastic anemia due to vitamin B12 deficiency High total serum IgM Expec zabrina: 05/06/2022 (Approximate), Expires: 03/18/2023[facility] Work Phone: Comment on above:Expected: 05/06/2022 (Approximate), Expires: 03/18/2023Start: 05-06-2022 End: 58-92-4690Ydggfzkdfsrta metabolic 2000 panel - Serum or PlasmaCOMP METABOLIC PANEL Lab Routine Megaloblastic anemia due to vitamin B12 deficiency High total serum IgM Expected: 05/06/2022 (Approximate), Expires: 03/18/2023 [facility] Work Phone: Comment on above:Expected: 05/06/2022 (Approximate), Expires: 03/18/2023Start: 05-06-2022 End: 28-53-4677Qbyyjshw [Mass/volume] in Serum or PlasmaFERRITIN BLD Lab Routine Megaloblastic anemia due to vitamin B12 deficiency High total serum IgM Exp ected: 05/06/2022 (Approximate), Expires: 03/18/2023[facility] Work Phone: Comment on above:Expected: 05/06/2022 (Approximate), Expires: 03/18/2023Start: 05-06-2022 End: 72-02-3959Phlz and Iron binding capacity panel - Serum or PlasmaIRON + TIBC Lab Routine Megaloblastic anemia due to vitamin B12 deficiency High total serum IgM Expected: 05/06/2022 (Approximate), Expires: 03/18/2023[facility] Work Phone: Comment on above:Expected: 05/06/2022 (Approximate), Expires: 03/18/2023Start: 05-06-2022 End: 89-68-0174Atippsp dehydrogenase [Enzymatic activity/volume] in Serum or PlasmaLD LACTATE DEHYDRO Lab Routine Megaloblastic anemia due to vitamin B12 deficiency High total serum IgM Expected: 05/06/2022 (Approximate), Expires: 03/18/2023[facility] Work Phone: Comment on above:Expected: 05/06/2022 (Approximate), Expires: 03/18/2023Start: 05-06-2022 End: 07-89-1333DNRKDEWDOO PROTEIN, SERUM (BLOOD)MONOCLONAL PROTEIN, SERUM (BLOOD) Lab Routine Megaloblastic anemia due to vitamin B12 deficiency High total serum IgM Expected: 05/06/2022 (Approximate), Expires: 03/18/2023[facility] Work Phone: Comment on above:Expected: 05/06/2022 (Approximate), Expires: 03/18/2023Start: 05-06-2022 End: 58-60-1940Ixwnsvdgp [Mass/volume] in Serum or PlasmaPHOSPHORUS INORGANIC Lab Routine Megaloblastic anemia due to vitamin B12 deficiency High total serum IgM Expected: 05/06/2022 (Approximate), Expires: 03/18/2023[facility] Work Phone: Comment on above:Expected: 05/06/2022 (Approximate), Expires: 03/18/2023Start: 05-06-2022 End: 19-90-2670NFAKYBU ELECTROPHORESIS SERUM W/INTERPPROTEIN ELECTROPHORESIS SERUM W/INTERP Lab Routine Megaloblastic anemia due to vitamin B12 deficiency High total serum IgM Expected: 05/06/2022 (Approximate), Expires: 03/18/2023 [facility] Work Phone: Comment on above:Expected: 05/06/2022 (Approximate), Expires: 03/18/2023Start: 05-06-2022 End: 83-45-5141Wnypj [Mass/volume] in Serum or PlasmaURIC ACID BLOOD Lab Routine Megaloblastic anemia due to vitamin B12 deficiency High total serum IgM Expected: 05/06/2022 (Approximate), Expires: 03/18/2023[facility] Work Phone: Comment on above:Expected: 05/06/2022 (Approximate), Expires: 03/18/2023Start: 98-82-4274RBLZV-19 VACCINE (5 - Pfizer risk series) COVID-19 VACCINE (5 - Pfizer risk series)[facility] End: 17-49-6047Yosjaottlm A1c in BloodHGB A1C Lab Routine Elevated glucose Expected: 03/09/2022, Expires: 05/09/2022[facility] Work Phone: comment on above:Expected: 03/09/2022, Expires: 05/09/2022tart: 02-24-2022 End: 52-85-6310KCSRBQTOUD AB PANELBARTONELLA AB PANEL Lab Routine Swelling of lymph nodes Expected: 02/24/2022, Expires: 04/26/2022[facility] Work Phone: comment on above:Expected: 02/24/2022, Expires: 04/26/2022tart: 02-24-2022 End: 65-81-2499VUZJCSPK AB TOTALBRUCELLA AB TOTAL Lab Routine Swelling of lymph nodes Expected: 02/24/2022, Expires: 04/26/2022[facility] Work Phone: comment on above:Expected: 02/24/2022, Expires: 04/26/2022tart: 02-24-2022 End: 59-55-4775Chvshfkfqbko sp Ag [Presence] in Unspecified specimen by Latex agglutinationCRYPTOCOCCUS AG DET Microbiology Routine Swelling of lymph nodes Expected: 02/24/2022, Expires: 04/26/2022[facility] Work Phone: comgugf on above:Expected: 02/24/2022, Expires: 04/26/2022tart: 02-24-2022 End: 75-69-8801JKPPLYGQRFS AG URINEHISTOPLASMA AG URINE Lab Routine Swelling of lymph nodes Expected: 02/24/2022, Expires: 04/26/2022[facility] Work Phone: comment on above:Expected: 02/24/2022, Expires: 04/26/2022tart: 02-24-2022 End: 14-96-7691TMI 1 RNA [#/volume] (viral load) in Serum or Plasma by YESSI with probe detectionHIV RNA VIRAL LOAD Lab Routine Swelling of lymph nodes Expected: 02/24/2022, Expires: 04/26/2022[facility] Work Phone: comment on above:Expected: 02/24/2022, Expires: 04/26/2022tart: 02-24-2022 End: 84-08-1797JUNLVTTZ TOTAL W/REFLEXSYPHILIS TOTAL W/REFLEX Lab Routine Swelling of lymph nodes Expected: 02/24/2022, Expires: 04/26/2022[facility] Work Phone: comment on above:Expected: 02/24/2022, Expires: 04/26/2022tart: 34-21-4260Ixoqutpxx vaccinationMorrow County Hospitaltart: 67-34-0638AKUUT-19 VACCINE (4 - Booster for Pfizer series)COVID-19 VACCINE (4 - Booster for Pfizer series)[facility]: 70-00-6890Wqcagxsaw vaccination Flu vaccine (Season Ended)[employer] Phone: start: 49-75-3200Kzwjg panelLipid screenGalion Hospital [employer] Work Phone: start: 15-23-4717UnhqorydwquDqidxpzbc ClinicStart: 50-25-5975Bayubommk for malignant neoplasm of breastMorrow County Hospitaltart: 70-63-1344PHV TESTINGHPV TESTINGMorrow County Hospitaltart: 84-30-9175Nymcwroho for malignant neoplasm of cervixMorrow County Hospitaltart: 81-50-0160GWO Vaccine (1 - Risk 3-dose SCDM series)HPV Vaccine (1 - Risk 3-dose SCDM series)[facility]: 73-21-1031GCaV/Tdap/Td Vaccines (1 - Tdap)DTaP/Tdap/Td Vaccines (1 - Tdap)[facility] clarita: 08-82-5511QZP TESTINGPAP TESTING [facility]: 94-42-2292Afjgcnxpt for malignant neoplasm of cervix [facility]: 50-19-5237ETsM,Tdap and Td Vaccines (1 - Tdap)DTaP,Tdap and Td Vaccines (1 - Tdap)[facility] [employer] [facility]: 98-71-9932KFqV/Tdap/Td vaccine (1 - Tdap)DTaP/Tdap/Td vaccine (1 - Tdap)[employer] Phone: start: 61-29-5406Cizsndwhm B Vaccine (1 of 3 - 19+ 3- dose series)Hepatitis B Vaccine (1 of 3 - 19+ 3-dose series)[facility] Start: 79-16-2005Bbekkadpk B Vaccines (1 of 3 - 19+ 3-dose series)Hepatitis B Vaccines (1 of 3 - 19+ 3-dose series)[facility] clarita: 21-85-9595Dqbtclwpecjh vaccinationPneumococcal Vaccine (1 of 2 - PCV)[facility]: 34-48-5654Xexnbgsmxvvx Vaccine: Pediatrics and At-Risk Adult Patients (1 of 2 - PCV)Pneumococcal Vaccine: Pediatrics and At-Risk Adult Patients (1 of 2 - PCV)[facility]: 10-05-1999 SHINGRIX VACCINE (1 of 2)SHINGRIX VACCINE (1 of 2)[facility]: 30-10-9845Dttdz microalbumin profileMorrow County Hospitaltart: 76-72-8989Jhwecy Vaccines (1 of 2)Zoster Vaccines (1 of 2)[facility]: 41-22-9446Nbhuw BMI Follow Up PlanAdult BMI Follow Up PlanECU Health Medical Centertart: 76-45-5644Kbdjw BMI ScreeningAdult BMI ScreeningECU Health Medical Centertart: 10-89-8296Fhenhmz ScreeningAnxiety ScreeningMorrow County Hospitaltart: 77-00-6247Hnqvudugv C screeningHepatitis C ScreeningMain [facility]: 51-49-6064ZJB SCREENINGHIV SCREENINGMorrow County Hospitaltart: 86-35-8711KHD screeningHIV ScreeningMorrow County Hospitaltart: 44-44-2241HIO screeningHIV screenMercy [employer] Work Phone: start: 85-76-8907Qgwsagzfy vaccinationVaricella Vaccines (1 of 2 - 13+ 2-dose series)[facility]: 07-05-9040HWTMO-19 Vaccine (1)COVID-19 Vaccine (1)[employer] Work Phone: start: 24-60-0676Dvervnugfd ScreeningDepression ScreeningECU Health Medical Centertart: 78-96-9922Zbbcasp ScreeningTobacco ScreeningECU Health Medical Centertart: 09-69-4650Vwtbzlzcu for malignant neoplasm of cervixCervical Cancer ScreeningMorrow County Hospitaltart: 1986 PNEUMOCOCCAL (1 - PCV)PNEUMOCOCCAL (1 - PCV)[facility]: 1986 Pneumococcal vaccinationMorrow County Hospitaltart: 52-94-5216Jzaxtkqefgyk Vaccine: Pediatrics (0 to 5 Years) and At-Risk Patients (6 to 64 Years) (1 - PCV) Pneumococcal Vaccine: Pediatrics (0 to 5 Years) and At-Risk Patients (6 to 64 Years) (1 - PCV)[facility]: 88-16-5039AZW Vaccines (1 of 1 - Standard series)MMR Vaccines (1 of 1 - Standard series)[facility]: 42-40-0955Khicxmxjv vaccinationVaricella Vaccines (1 of 2 - 2-dose childhood series)[facility]: 21-13-9061Cwsoxlxbn vaccine (1 of 2 - 2-dose childhood series)Varicella vaccine (1 of 2 - 2-dose childhood series)[facility] Work Phone: start: 52-86-3143ZKZGPMHEK B (1 of 3 - 3-dose series) HEPATITIS B (1 of 3 - 3-dose series)[facility]: 84-65-4247Kbvsrtvmc B Vaccine (1 of 3 - 3-dose series)Hepatitis B Vaccine (1 of 3 - 3-dose series) [facility]: 16-75-8585Ozpvjghoe B Vaccines (1 of 3 - 3-dose series) Hepatitis B Vaccines (1 of 3 - 3-dose series)[facility] Start: 24-13-4772Poqjuknvm C screeningHepatitis C screenGalion Hospital [employer] Work Phone: start: 10-10-8532QMA screeningHIV ScreeningMain [facility] Medical Center: 47-54-8709NMY Vaccine: Recommended Based On RiskHPV Vaccine: Recommended Based On RiskMorrow County Hospitaltart: 24-60-4040Llmuj panel Lipid PanelMain Campus Medical Center: 21-92-8558Usccnnfbk for osteoporosisBone Density ScanMain Campus Medical Center: 1980 Tobacco CounselingTobacco CounselingProMercy Health Fairfield Hospitalca St[facility] SystemStart: 1980 Yearly Adult PhysicalYearly Adult PhysicalUnProMedica Memorial Hospital25- hydroxyvitamin D3 [Mass/volume] in Serum or PlasmaVITAMIN D 25 HYDROXY Lab Routine Vitamin D deficiency 01/11/2025 1:48 PM EDTCleveland ClinicAEROBIC CULTUREAEROBIC CULTURE Lab Routine 03/02/2025 5:17 PM EDTNOMS Healthcare Work Phone: ANAEROBIC CULTUREANAEROBIC CULTURE Lab Routine 03/02/2025 5:17 PM [facility] HealthcareBacteria identified in Unspecified specimen by Aerobe culturePremier Health Miami Valley HospitalBacteria identified in Unspecified specimen by Anaerobe culturePremier Health Miami Valley HospitalBLOOD TB SCREENBLOOD TB SCREEN Lab Routine Screening-pulmonary TB 01/11/2025 1:48 PM EDTCleveland ClinicC reactive protein [Mass/volume] in Serum or PlasmaC-REACTIVE PROTEIN Lab Routine Elevated sed rate Elevated C-reactive protein (CRP) 01/11/2025 1:48 PM EDTCleveland ClinicCardiovascular function eval w/tilt table w/mntrTILT TABLE EVALUATION Cardiology Routine POTS (postural orthostatic tachycardia syndrome) Ordered: 03/09/2022[facility] Work Phone: comment on above:Ordered: 03/09/2022BC W Auto Differential panel - BloodCBC and differential Lab Routine Menorrhagia with regular cycle Ordered: 03/23/2024[facility] Work Phone: comment on above:Ordered: 03/23/2024hronic hepatitis differentiation between hepatitis B and C virus panel - Serum or PlasmaHEP REMOTE PANEL BL Lab Routine Elevated LFTs 01/11/2025 1:48 PM [facility]TC[facility] Clinic Cobalamin (Vitamin B12) [Mass/volume] in Serum or PlasmaVITAMIN B12 Lab Routine Vitamin B12 deficiency 01/11/2025 1:48 PM EDTCleveland ClinicCT Abdomen W contrast [facility] End: 00-16-3136SEE-AXIAL SKELETONDXA-AXIAL SKELETON Radiology Routine Steroid- induced osteoporosis 1 Occurrences starting 02/04/2023until 03/05/2024[facility] Work Phone: Comment on above:1 Occurrences starting 02/04/2023 until 03/05/2024 End: 37-98-1869PQU-FOREARM SKELETONDXA-FOREARM SKELETON Radiology Routine Steroid-induced osteoporosis 1 Occurrences starting 02/04/2023 until 03/05/2024 [facility] Work Phone: Comment on above:1 Occurrences starting 02/04/2023 until 03/05/2024ECG 12 LeadECG 12 Lead ECG Routine Irregular heart rate 06/09/2023 8:28 AM [facility] Work Phone: Erythrocyte sedimentation rateSEDIMENTATION RATE, WESTERGREN Lab Routine Elevated sed rate Elevated C-reactive protein (CRP) 01/11 1:48 [facility] Work Phone: hCG, quantitative, pregnancyhCG, quantitative, Lab Routine Menorrhagia with regular cycle Ordered: 03/23/2024[facility] HealthcareComment on above:Ordered: 03/23/2024Hemoglobin A1c/Hemoglobin.total in BloodHemoglobin A1c Lab Routine Menorrhagia with regular cycle Ordered: 03/23/2024[facility] HealthcareComment on above:Ordered: 03/23/2024Hepatitis B virus core Ab [Presence] in SerumHEPATITIS B CORE ANTIBODY TOTAL Lab Routine Elevated LFTs 01/11/2025 1:48 PM EDTCleveland ClinicHepatitis B virus surface Ab [Presence] in SerumHEPATITIS B SURFACE ANTIBODY Lab Routine Elevated LFTs 01/11/2025 1:48 PM EDTCleveland ClinicHepatitis B virus surface Ag [Presence] in SerumHEPATITIS B SURFACE ANTIGEN Lab Routine Elevated LFTs 01/11/2025 1:48 PM EDTCleveland ClinicHepatitis C virus Ab [Presence] in SerumHEPATITIS C ANTIBODY IA WITH CONFIRMATION Lab Routine Elevated LFTs 01/11/2025 1:48 PM [facility]TCSum[facility] End: 32-93-7952EOJY SLEEP APNEA TEST (HSAT)HOME SLEEP APNEA TEST (HSAT) Procedures Routine Somnolence, daytime Snoring 1 Occurrences starting 03/09/2022 until 03/09/2023[facility] Work Phone: comment on above:1 Occurrences starting 03/09/2022 until 03/09/2023HYDROGEN BREATH TEST B/OHYDROGEN BREATH TEST B/O Procedures Routine Diarrhea, unspecified type Abdominal pressure Ordered: 06/14/2024[facility] Work Phone: comment on above:Ordered: 06/14/2024Oxygen therapy [Minimum Data Set]Initiate Oxygen Therapy Protocol Respiratory Care Routine Daily until discontinued starting 10/07/2020[facility] Work Phone: comment on above:Daily until discontinued starting 05/17/2021Patient [facility] Work Phone: [facility] Work Phone: End: 85-49-2443HuczwuubryvmmGUEWIAQZLDTZP (PSG) Procedures Routine Somnolence, daytime Snoring 1 Occurrences starting 03/04/2022 until [facility] Work Phone: Comment on above:1 Occurrences starting 03/04/2022 until 3Prothrombin time (PT) in Blood by Coagulation assayProtime-INR Lab Routine Menorrhagia with regular cycle Ordered: 03/23/2024[facility] Comment on above:Ordered: 03/23/2024THIN PREP TIS PAP AND HR HPV DNATHIN PREP TIS PAP AND HR HPV DNA Pathology and Cytology Routine Well woman exam with routine gynecological exam Ordered: 06/06/2024[facility] HealthcareComment on above: Ordered: 06/06/2024Thyrotropin [Units/volume] in Serum or PlasmaTSH Lab Routine Menorrhagia with regular cycle Ordered: 03/23/2024[facility] HealthcareComment on above:Ordered: 03/23/2024Thyroxine (T4) free [Mass/volume] in Serum or PlasmaT4, free Lab Routine Menorrhagia with regular cycle Ordered: 03/23/2024[facility] HealthcareComment on above:Ordered: 03/23/2024XR Thoracic spine 3 [facility] Immunizations Immunization DateImmunizationNotesCare RhzjdyshPbrqrawo15-67-2176CPPXB-01 vaccine, age 12+ yr, 2022- season ([employer]-[place]12)Lynne Ni MD Work Phone: [facility] HospitalVzgkqp29-80-2729CFQDT-38 mRNA Bivalent Booster (Pfizer)Gay De La Torre EDUCATION ANALYST-C Work Phone: [facility]01-03-2022COVID-19 mRNA, Comirnaty (Pfizer)Gay De La Torre EDUCATION ANALYST-C Work Phone: [facility]05-29-2021COVID-19 mRNA, Comirnaty (Pfizer)Gay De La Torre EDUCATION ANALYST-C Work Phone: [facility]05-08-2021COVID-19 mRNA, Comirnaty (Pfizer)Gay De La Torre EDUCATION ANALYST-C Work Phone: [facility] Payers DatePayer CategoryPayerPolicy [id number] [facility] MEDICAID [id number] 2017Medicaid (Managed Care) [facility] [id number] MEDICAID Member Subscriber Plan / Payer (Effective 2017-Present) Name: Ariadna Haley Relation to Subscriber: Self Name: Ariadna Haley Payer ID: Not on file Group ID: [id number] Type: Not on file Address: [address] [place] [id number] [facility] [id number] 2017-Present [address] [place] [id number] 2010MedicaidCARESOURCECARESOURCE MEDICAID CARESOURCE MEDICAID [id number] 2009-Present [phone] [address] [place] [address] [id number] 2010Medicaid [id number] 2.0.1.259168.3.57[id number] 2.0.1.826555.3.57[id number] 2.0.1.398442.3.57[id number] 2.0.1.864537.3.57[id number] 2.0.1.518073.3.57[id number] 2.16.840.1.109231.3.57[id number] 2.16.840.1.269009.3.579.2.70287-38-4417Btknnbu7274921 2.16.840.1.787189.3.579.2.84441-57-4608Nupltod0202498 2.16840.1.022261.3.579.2.3[id number] 2.16840.1.167179.3.579.2.40044-43-8671Vtxiuif1941909 2.16840.1.291034.3.579.[id number] 2.840.1.599598.3.579.2.50110-62-1602Vynxyzx264837005 2.16840.1.468188.3.57[id number] 2.840.1.102143.3.57[id number] 2.16840.1.990531.3.579.2.229620-05-6857Vfltrcn38761654 2.840.1.295340.3.579.2.7[id number] 2.16840.1.185058.3.579.2.193738-84-3415Dhmqgnz58019103 2.16840.1.186806.3.579.2.876119-39-8932Zsfovhr3530584 2.16840.1.441454.3.579.2.497140-22-5239Vovaxry0227689 2.16840.1.542395.3.579.2.958708-69-8003Zclvvzy8750223 2.0.1.661914.3.579.2.596903-81-3109Jkcqwuv5190428 2.0.1.746718.3.579.2.500831-14-0696Ofhmvdp1977977 2.0.1.136186.3.579.2.865734-49-7027Hgbxgvl9640742 2.0.1.991777.3.57[id number] 2..1.894894.3.579.2.248275-65-7964Inppkiw3476838227807-64-2026Hzwqica [id number] 2.0.1.1[id number] 2.840.1.9090[id number] 2.840.1.772374.3.579.2.531 Rwxwpcu39553460 2.840.1.861058.3.579.2.642Yrbklvp29297710 2.0.1.287110.3.579.2.773Crfastb55598316 2.0.1.487548.3.579.2.531 [id number] 2.0.1.424913.3.579.2.531 Social History DateTypeDetailFacilityStart: 10-07-2020 End: 59-79-0970Lizygnv smoking status NHISCurrent every day smokerMorrow County Hospitaltart: 10-07-2020 End: 02-50-9226Excdxzh use and exposureNever [facility] SystemStart: 10-07-2020 End: 07-98-4465Nxbxhyt intakeLifetime non-drinker (finding)[facility] Work Phone: start: 33-68-0375Ltvmuiy SDOH Alcohol Nttucigcb7Ficqx [employer] Phone: start: 04-06-1080Ynj Assigned At BirthNot on Critical access hospital [employer] Phone: start: 02-22-2022 End: 59-28-1964Yntngnsv to SARS-CoV-2 (event)Not [facility] HealthStart: 48-40-5210Uaxniws of tobacco useCigarette SmokerMorrow County Hospitaltart: 05-31-2014 End: 74-01-7944Mrphfzekhf smoked current (pack per day) - Twhjzmca8Npqxsjgmf ClinicStart: 10-24-2021 End: 47-00-5430Pdqyowk intakeCurrent non-drinker of alcohol (finding)[facility]: 10-14-2021 End: 78-87-8551Nmpzswhh to SARS-CoV-2 (event)Unable to assessBethesda North Hospital Start: 10-22-2022 End: 89-21-9438Xpb [facility]: 44-50-9444Ahjno Depression Screening Upnktgsbro3Apiryyirs ClinicStart: 46-89-7336Puwvmve Comment Current smoker, everyday, 11-20 cigarettes/dayNOMD HealthcareStart: 05-31-2023 Alcohol CommentCaffeine intake : > 4 cups per dayNOMD HealthcareStart: 08-19-2016 End: 63-20-3606Wzsckby smoking status NHISSmoker (finding)[facility] Hospitaltart: 93-74-6912Pwf Assigned At BirthFeMercy Health Defiance Hospitaltart: 07-02-2016 End: 49-82-1650HqgXhpryd (finding)[facility] SystemStart: 56-38-5008Wivqqw identityIdentifies as female gender (finding)[facility] Goals DatePatient GoalDesired Activity/State Functional Status UqnePhdvbymhkpAeuuucSzluxbnn01-11-7103Rdy you deaf, or do you have serious difficulty hearingNo 12/25/2014 11:14 AM Chichi Womack [facility]burgUwwqgy54-12-7538Qug you blind, or do you have serious difficulty seeing, even when wearing glassesNo 12/25/2014 11:14 AM EDT Chichi Zarco [facility]08-04-2015Do you have serious difficulty walking or climbing stairsYes 12/25/2014 11:14 AM EDAnahi Zarco Chichi Oakley [facility]08-04-2015Do you have difficulty dressing or bathingYes 12/25/2014 11:14 AM EDT Zarco Hoda Chichi [facility] HospitalJiqfmn17-83-8375Cyfvzta of a physical, mental, or emotional condition, do you have difficulty doing errands alone such as visiting a physician's office or shoppingNo 12/25/2014 11:14 AM EDAnahi Zarco [facility] Mental Status Noor[id number] of a physical, mental, or emotional condition, do you have serious difficulty concentrating, remembering, or making decisionsNo 12/25/2014 11:14 AM EDT Haroldo Oakley Chichi [facility] Clinical Notes 05-31-2014 to 02-28-2025 Note Date & [id number] History of Present illness Narrative* Terence Pacheco MD - 02/28/2025 9:30 AM [...] and also on prednisone. She follows with [facility] rheumatology and also with [facility] sawyer tology/oncology. She states she does [...] areas on the thighs, once daily, 30 supply Clobetasol Propionate 0.05 % shampoo 1 [...] Chronic laryngopharyngitis COVID-19 vaccine administered x 2 ([employer]) Difficulty walking Fatigue Fibromyalgia, primary GERD (gastroesophageal [...] her dressing changes at documented in this encounterFreeman Health SystemLkfjaznlxn76-57-2053 NoteOhiohealth [facility]ide [facility]10-01-2025 NoteOhiohealth Riverside [facility] Hospital09-24-2025 History of Present illness Narrative* Bernabe English MD - 02/14/2025 3:20 PM EDT [...] was obtained from the patient/parent. Method: See [facility] for details on administration. 0.1 ml of [...] Next Visit: as scheduled documented in this encounterFreeman Health [id number] NoteOhiohealth Riverside Methodist Hospital09-03-2025 History of Present illness Narrative* Elena Alfonso RN - 01/24/2025 3:40 PM EDT Pt did not receive B12 injection today. Pt called & agreeable to receive it when she returns in2 weeks for her Benlysta infusion. Pharmacy aware and moving date. Elena Alfonso, RN documented in this encounterBethesda North Hospital08-28-2025 Telephone encounter Note * Telephone Encounter - Merry Chairez RN - 01/18/2025 5:09 PM EDT MC message read by patient . [facility]08-28-2025 Miscellaneous Notes* Telephone Encounter - Merry Chairez RN - 01/18/2025 5:09 PM EDT MC message read by patient . * Telephone Encounter - Lynne Ni MD - 01/18/2025 3:34 PM EDT Please Call patient if MyChart [...] rest of cbc, cmp, crp <0.3, vitamin D32.2, vitamin b12-710;negative hepatitis panel, quantiferon tb; --- 10/02/24 high alt 41, glucose 216, esr 28;low vitamin D 30.9;normal rest of cbc, cmp, crp<0.3; 09/07/24 patient requests to switch sq benlysta to IV, start prior authorization documented in this encounterBethesda North Hospital08-28-2025 Telephone encounter Note * Telephone Encounter - Lynne Ni MD - 01/18/2025 3:34 PM EDT Please Call patient if MyChart [...] rest of cbc, cmp, crp <0.3, vitamin D32.2, vitamin b12-710;negative hepatitis panel, quantiferon tb; --- 10/02/24 high alt 41, glucose 216, esr 28;low vitamin D 30.9;normal rest of cbc, cmp, crp<0.3; 09/07/24 patient requests to switch sq benlysta to IV, start prior authorization [facility]08-27-2025 Chief complaint+Reason for visit Narrative* Chief Complaint Admit Date reshedule procedure January [...] :50am Sacroiliitis March 13, 2025 8 :50am [facility] Work Phone: 1(918) 877-313408-27-2025 Evaluation note* Diagnosis Onset Date Resolution Status Admit Date Lumbosacral spondylosis acuteAugust 2024 10:29amOther chronic painacuteAugust 2024 10:29am SacroiliitisacuteAugust 2024 10:29amLumbosacral spondylosisacuteSeptember 2024 9:23amMid back painacuteSeptember 2024 9:23amOther chronic pain acuteSeptember 2024 9:23amSacroiliitisacuteSeptember 2024 9:23am Abdominal pressureacuteOctober 2024 1:29pmDyspepsiaacuteOctober 2024 1:29pmFatty liveracuteOctober 2024 1:29pmGERD (gastroesophageal reflux disease)acuteOctober 2024 1:29pmLumbosacral spondylosisacuteOctober 2024 8:50amOther chronic painacuteOctober 2024 8:50amSacroiliitisacute March 13, 2025 8:50am [facility] Work Phone: 1(191) 918-618707-24-2025 NoteHNO ID: [id number] Author: JHONATHAN CODNE RN Service: ? Author Type: Registered Nurse Type: Progress Notes Filed: 12/14/2024 16:36 Note Text: Ran over 2 hours per patient request.[facility]07-24-2025 History of Present illness Narrative* Jhonathan Conde RN - 12/14/2024 3:58 PM EDT Ran over 2 hours per patient request. documented in this encounterBethesda North Hospital07-24-2025 NoteOhiohealth Riverside Methodist Hospital07-24-2025 History of Present illness Narrative* Ama Esparza - 12/14/2024 11:03 AM EDT CMN RECEIVED BY [employer] VIA FAX, COMPLETED, AND PLACED IN PROVIDER MAILBOX FOR SIGNATURE Ama Esparza Human Capital Analyst [email or web address] SENDING CMN: Josh SIGNED AND DATED CMN, FAXED TO DME & CONFIRMATION PAGE RECEIVED: 12.14.2024 documented in this encounterBethesda North Hospital07-22-2025 Evaluation note* Diagnosis Onset Date Resolution Status Admit Date Abdominal burning sensation in left uppe r quadrant acuteJuly 2024 10:42amAbdominal massacuteJuly 2024 10:42amAbdominal painacuteJuly 2024 10:42amBloatingacuteJuly 2024 10:42amConstipation acuteJuly 2024 10:42amDyspepsiaacuteJuly 2024 10:42amLumbosacral spondylosisacuteAugust 2024 10:29amOther chronic painacuteAugust 2024 10:29amSacroiliitisacuteAugust 2024 10:29amLumbosacral spondylosis acuteSeptember 2024 9:23amMid back painacuteSeptember 2024 9:23am Other chronic painacuteSeptember 2024 9:23amSacroiliitisacuteSeptember 2024 9:23amAbdominal pressureacuteOctober 2024 1:29pmDyspepsiaacute October 2024 1:29pmFatty liveracuteOctober 2024 1:29pmGERD (gastroesophageal reflux disease)acuteOctober 2024 1:29pm [facility] Work Phone: 1(259) 518-781207-10-2025 Evaluation note* Diagnosis Onset Date Resolution Status Admit Date Lumbosacral spondylosis acuteJuly 2024 9:03amOther chronic painacuteJuly 2024 9:03am SacroiliitisacuteJuly 2024 9:03amAbdominal burning sensation in left upper quadrantacuteJuly 2024 10:42amAbdominal massacuteJuly 2024 10:42am Abdominal painacuteJuly 2024 10:42amBloatingacuteJuly 2024 10:42am ConstipationacuteJuly 2024 10:42amDyspepsiaacuteJuly 2024 10:42am Lumbosacral spondylosisacuteAugust 2024 10:29amOther chronic painacute January 17, 2025 10:29amSacroiliitisacuteAugust 2024 10:29amLumbosacral spondylosisacuteSeptember 2024 9:23amMid back painacuteSeptember 2024 9:23amOther chronic painacuteSeptember 2024 9:23amSacroiliitisacute February 14, 2025 9:23am [facility] Work Phone: 1(539) 546-869007-10-2025 Telephone encounter Note* Telephone Encounter - Enma Hamm RN - 11/30/2024 8:36 AM EDT Pt updated on results. Will continue with IVIG, as previously scheduled. Denied further needs or concerns at this time. Enma Hamm RN [facility]07-10-2025 Miscellaneous Notes* Telephone Encounter - Enma Hamm RN - 11/30/2024 8:36 AM EDT Pt updated on results. Will continue with IVIG, as previously scheduled. Denied further needs or concerns at this time. Enma Hamm RN documented in this encounterBethesda North Hospital07-09-2025 NoteOhiohealth Riverside Methodist Hospital07-09-2025 History of Present illness Narrative* Vaibhav Carvalho APRN.VP PRODUCT MARKETING - 11/29/2024 8:43 AM EDT Images from the original note were not included. NAME: Ariadna Haley [facility] NO.: [id number] DATE OF SERVICE: .November 29, 2024 (Deven) [...] to monitor; no current intervention required per [facility] recommendations. 7. Pre-diabetes (R73.03) Borderline diabetic. [...] requiring a recent corticosteroid injection by her business support professional. She experiences intermittent fatigue, shortness of breath, [...] done 2 days ago at [facility] - awaiting results. B12 [...] injections. Shefollows with multiple doctors including and associate professor of geology, remarketing rep, business support professional and PCP. She has been told they [...] subcutaneously one time a week. Per PCP xipcbgxnxrQAQUP-ngnvew-vgokxdcnv (BMX 1:1:1) 1:1:1 liqd Take 5 mL [...] (Crohn's [Other]) Mother . Vaibhav Carvalho APRN, EDUCATION ANALYST-C, [facility] Provided at: [place], [place] CC: Manuel Ferris MD [id number] [address] documented in this encounterBethesda North Hospital07-03-2025 History of Present illness Narrative* KELVIN [...] treatment with ILK today. ILK today, see [facility] for details. Consent: The risks and benefits of intralesional kenalog were discussed prior to the procedure. Specifically, the risk of skin atrophy was reviewed. It was also emphasized that multiple treatments may be necessary. Verbal consent was obtained from the patient/parent. Method: See [facility] for details on administration. 0.2 ml of [...] Next Visit: as scheduled documented in this encounterFreeman Health SystemGaqlzxvpme33-12-5719 Telephone encounter Note* Telephone Encounter - Renea Schneider MA - 11/20/2024 12:00 PM EDT Patient coming in for treatment visit Wednesday11/29/24. Please add lab orders. thanks. Renea Schneider MA [facility]06-23-2025 Chief complaint+Reason for visit Narrative* Chief [...] :29am Sacroiliitis January 17, 2025 10 :29am [facility] Work Phone: 1(816) 628-765306-23-2025 Chief complaint+Reason for visit Narrative * Chief [...] 17, 2025 10 :29am [facility] Work Phone: 1(938) 513-582406-23-2025 Evaluation note* Diagnosis Onset Date Resolution Status Admit Date Lumbosacral spondylosis acuteJune 2024 11:15amOther chronic painacuteJune 2024 11:15am SacroiliitisacuteJune 2024 11:15amLumbosacral spondylosisacuteJuly 2024 9:03amOther chronic painacuteJuly 2024 9:03amSacroiliitisacuteJuly 2024 9:03amAbdominal burning sensation in left upper quadrantacuteJuly 2024 10:42amAbdominal massacuteJuly 2024 10:42amAbdominal painacute December 12, 2024 10:42amBloatingacuteJuly 2024 10:42amConstipationacuteJuly 2024 10:42amDyspepsiaacuteJuly 2024 10:42amLumbosacral spondylosis acuteAugust 2024 10:29amOther chronic painacuteAugust 2024 10:29am SacroiliitisacuteGoodlow 2024 10:29am [facility] Work Phone: 1(655) 711-855105-17-2025 History of Present illness Narrative* Lynne Ni [...] visit. 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 Labs sent to [facility]/completed in 06/2021 (no results faxed to office, [...] COVID-19 original vaccine, age 12+ yr, monovalent (Vendigi - PURPLE TOP) 09/28/2020 10/19/2020 05/26/2021 COVID-19 vaccine, age 12+ yr (Vendigi COMIRNATY) 02/23/2023 COVID-19 vaccine, age 12+ yr, bivalent (Vendigi) 02/08/2022 Pneumovax no Flu shot no Tetanus [...] (33);NL cbc, cmp, negative hla b27; Outside [place] 06/2021 low vitamin D 16, vitamin b12-307;high [...] Z79.899 Long-term use of high-risk medication Z79.52 USP current use of systemic steroids M79.641, M79.642 [...] ures, may consider osteoporosis treatment if on rn long term care steroids/abnormal bmd, take vitamin D script [...] neurology/on metoprolol for POTs, avoid aggravating triggers, rn long term care pain recommendations per primary [...] (200mg) daily with a meal Please see application integrator every 6-12months while on Hydroxychloroquine. reStart azathioprine [...] touching your toes, sit-ups, using row machine rn long term care pain recommendations per primary [...] video & audio (virtual) or phone or xzmy-fz-fxvc patient care, completing clinical documentation, obtaining and/or [...] Dear Dr.Douglas Sai Ferris MD and Gay De La Torre CNP: I had the pleasure of seeing [...] by letter/electronic shared medical records. cc Gay De La Torre CNP;Dr.Douglas Sai Ferris MD Answers submitted by [...] Workers' Compensation? No Do you need an blower blast furnace? No [facility] MYCHART ZOOM MESSAGE Question 10/06/2024 9:06 [...] my health Strongly Agree documented in this encounterBethesda North Hospital05-17-2025 NoteOhiohealth Riverside Methodist Hospital05-17-2025 Instructions* Patient Instructions* Lynne Ni MD [...] (200mg) daily with a meal Please see application integrator every 6-12months while on Hydroxychloroquine. azathioprine daily [...] touching your toes, sit-ups, using row machine rn long term care pain recommendations per primary [...] your usual activities immediately. documented in this encounterBethesda North Hospital05-16-2025 Telephone encounter Note * Telephone Encounter - Beatriz Sanchez LPN - 10/06/2024 1:46 PM EDT VM left that below message forwarded to her MC. Requested return call if unable to view message. [facility]05-16-2025 Miscellaneous Notes* Telephone Encounter - Beatriz [...] accordingly. Lynne Ni MD documented in this encounterBethesda North Hospital05-16-2025 Telephone encounter Note * Telephone Encounter [...] above. Please process accordingly. Lynne Ni MD [facility]04-30-2025 NoteOhiohealth Riverside Methodist Hospital04-30-2025 Note [facility]04-29-2025 History of Present illness Narrative* Deborah Arroyo [facility] - 09/19/2024 10:00 AM EDT Patient Name [...] GENETIC TESTING: None. SOCIAL HISTORY: Lives in [place], [place] with her and daughter. Employment: [employer] Level of education: high school Alcohol/cigarettes/other: tobacco- smokes 1ppd since teens; EtOH- denied; illicit drug use- denied FAMILY HISTORY: - Patient's ethnicity: Maternal - ; Paternal - . - Partner's ethnicity: not applicable. - No known -Rwandan, Mediterranean, /Lebanese, Serbian-Mauritian/Cajun, or Ashkenazi Congregation ancestry unless noted above. - Parental consanguinity: [...] via the connective tissue disorder panel at [facility] for Ariadna's daughter. Follow up will be [...] greater than 50% of which was spent gddz-lw-dbsz counseling. This plan is being carried out per Dr. Lance's recommendations. Deborah Arroyo, MS, [facility] Licensed Genetic Counselor EPIC CC: Dr. Last Lance CC: Ariadna Haley Via [employer] documented in this encounterBethesda North Hospital04-29-2025 NoteOhiohealth Riverside [facility] Hospital04-29-2025 NoteOhio[facility]04-29-2025 History of Present illness Narrative* Ny Lance MD - 09/19/2024 7:46 AM EDT Images from the original note were not included. Department of Medical Genetics and Genomics OUTPATIENT NEW VISIT NOTE Recording using Cov[employer] software for draft documentation of the visit was discussed with the patient/authorized personal service representative; all questions welcomed and answered. 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 Per PCP yfgdapsyahCVALJ-exyevh-vsrisgomv (BMX 1:1:1) 1:1:1 liqd Take 5 mL [...] visit. PAST MEDICAL HISTORY: I have reviewed [facility] on September 19, 2024 PAST MEDICAL [...] OF ablation SOCIAL HISTORY: - Lives in [place], [place] with her and daughters. - Highest level of education: High school. 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 Paternal - . - No known -Rwandan, Mediterranean, /Lebanese, Ashkenazi Congregation, Serbian-Mauritian/Cajun, or Episcopal ancestry unless noted above. - Parental consanguinity: [...] pedigree was collected by Deborah Arroyo MS, [facility] at the patient's separate genetic counseling encounter. The pedigree will be scanned into [employer]. This information was reviewed with thefamily and [...] For Physiotherapists by Katarina Reza (Eds.), [facility], 2003, ISBN [id number]; Examination and Treatment of a Patient with [...] symptoms when present, recommending follow-up with a welding technician. 2. Chronic pain syndrome (G89.4) Chronic joint [...] 87 minutes was spent with patient for ywro-zi-jurq evaluation, discussion of genetic differential diagnoses, management plan, counseling, chart review, documentation and coordination of care. Portions of family history were obtained by Deborah Arroyo MS, [facility], which were reviewed with family and edited as necessary. All questions were answered to the best of my knowledge. Contact information has been provided to the patient. Ny Lance MD Staff Car [employer] Department of Medical Genetics and Genomics (DMGG) [facility] Appointments: [facility] CC: Deborah Arroyo MS, [facility] Ariadna Haley (via [employer]) [address] [place] [id number] Lynne Ni MD CC to PCP via fax: Manuel Ferris [address] [place] [id number] documented in this encounterBethesda North Hospital04-28-2025 Telephone encounter Note * Telephone Encounter - Lynne Ni MD - 09/18/2024 4:52 PM EDT Notify patient medication sent as requested Thank you. Patient's request for medication is as follows: Requested Prescriptions Pending Prescriptions Disp Refills belimumab (BENLYSTA) 200 mg/mL auto-injector 12 mL 3 Sig: Inject 200mg (1 pen) subcutaneously once weekly Prescription(s) as above. Please process accordingly. Lynne Ni MD [facility]04-28-2025 Miscellaneous Notes* Telephone Encounter - Lynne [...] (1 pen) subcutaneously once weekly Patient prefers: [facility] Thank you! Maria Esther Pichardo, PharmD Clinical Pharmacist, [employer] [facility] ; Pool: P [facility] Pool #: [id number] documented in this encounterBethesda North Hospital04-28-2025 Telephone encounter Note * Telephone Encounter - Macarena Sanchez - 09/18/2024 4:03 PM EDT Patient will be calling to reschedule her IV IG and benlysta. She needs to find a supervisor drawing and will call back with the dates that she will be available. [facility]04-28-2025 Miscellaneous Notes* Telephone Encounter - Macarena Sanchez - 09/18/2024 4:03 PM EDT Patient will be calling to reschedule her IV IG and benlysta. She needs to find a supervisor drawing and will call back with the dates that she will be available. documented in this encounterBethesda North Hospital04-28-2025 Telephone encounter Note * Telephone Encounter [...] (1 pen) subcutaneously once weekly Patient prefers: [facility] Thank you! Maria Esther Pichardo, PharmD Clinical Pharmacist, [employer] [facility] ; Pool: P [facility] Pool #: [id number] [facility]04-22-2025 Telephone encounter Note* Telephone Encounter - Karina Pino - 09/12/2024 2:35 PM EDT Patient has been scheduled at [facility]04-22-2025 Miscellaneous Notes* Telephone Encounter - Karina Pino - 09/12/2024 2:35 PM EDT Patient has been scheduled at [facility] * Telephone Encounter - Shrerie Cortes - 09/12/2024 2:13 PM EDT Patient [...] below scheduling for the drug. Cesilia Hicks [facility] You25 minutes ago (11:20 AM) Please schedule [...] to Rheum provider. Anahi Becerril RN nurse volunteer manager: patient would like to know if she can bring her 8 year old to [facility]in the summer. Basia Samuel RN documented in this encounterBethesda North Hospital04-22-2025 Telephone encounter Note * Telephone Encounter - Sherrie Cortes - 09/12/2024 2:13 PM EDT Patient called back and is now in agreement to schedule for Benlysta. Patient has been scheduled for Wednesday, 09/18. She will make her future appointments at this visit when she can work around her family arrangements. Spoke w/ T Wyatt regarding daughter recommendations and patient informed. Sherrie Cortes [facility]04-21-2025 Telephone encounter Note* Telephone Encounter - [...] week after her SQ dose. Cesilia Vicente [facility]04-17-2025 Telephone encounter Note* Telephone Encounter - Lynne Ni MD - 09/07/2024 12:52 PM EDT Please start prior authorization for IV benlysta Signed therapy plan with loading doses if approved by insurance. May schedule 1week after last sq injection benlysta pen if approved. Thank you [facility]04-17-2025 Telephone encounter Note* Telephone Encounter - Enma Hamm RN - 09/07/2024 9:04 AM EDT Results discussed with pt. She is set for IVIG 10/04/24. She denies further questions needs or concerns at this time. Enma Hamm RN [facility]04-17-2025 Miscellaneous Notes* Telephone Encounter - Enma Hamm RN - 09/07/2024 9:04 AM EDT Results discussed with pt. She is set for IVIG 10/04/24. She denies further questions needs or concerns at this time. Enma Hamm RN documented in this encounterBethesda North Hospital04-16-2025 Evaluation note* Diagnosis Onset Date Resolution Status Admit Date Lumbosacral spondylosis acuteApril 2024 3:42pmOther chronic painacuteApril 2024 3:42pm SacroiliitisacuteApril 2024 3:42pmLumbosacral spondylosisacuteJune 2024 11:15amOther chronic painacuteJune 2024 11:15amSacroiliitisacuteJune 2024 11:15am [facility] Work Phone: 1(698) 262-820304-16-2025 Evaluation note* Diagnosis Onset Date Resolution Status Admit Date Lumbosacral spondylosis acuteApril 2024 3:42pmOther chronic painacuteApril 2024 3:42pm SacroiliitisacuteApril 2024 3:42pmLumbosacral spondylosisacuteJune 2024 11:15amOther chronic painacuteJune 2024 11:15amSacroiliitisacuteJune 2024 11:15amLumbosacral spondylosisacuteJuly 2024 9:03amOther chronic painacuteJuly 2024 9:03amSacroiliitisacuteJuly 2024 9:03am [facility] Work Phone: 1(286) 472-598004-16-2025 Telephone encounter Note* Telephone Encounter - Basia Samuel RN - 09/06/2024 4:20 PM EDT Patient has requested to switch from Benlysta injections to infusions. Will forward to Rheum provider. Anahi Becerril RN nurse volunteer manager: patient would like to know if she can bring her 8 year old to [facility]. Basia Samuel RN [facility]04-16-2025 History of Present illness Narrative* Vaibhav Carvalho APRN.CNP - 09/06/2024 9:00 AM EDT Images from the original note were not included. NAME: Ariadna Haley CLINIC NO.: [id number] DATE OF SERVICE: September 06, 2024 (Deven) Some elements in this clinic note that are critical to medical decision making have been carefully reviewed and included from a prior clinic note dated: June 13, 2024 (Deven) Referring Provider: Dr. Manuel Ferris Additional Clinicians involved in Ariadna De Pazharikafrancisco javier's care: DIAGNOSIS: Multiple symptoms ASSESSMENT: 43 [...] done 2 days ago at [facility] - awaiting results. B12 [...] injections. Shefollows with multiple doctors including and associate professor of geology, remarketing rep, business support professional and PCP. She has been told they [...] THREE TIMES A DAY^Disp: 135 tablet^Rfl: 1 ugcpeyyltuLYHDY-gaicib-iimoolqkj (BMX 1:1:1) 1:1:1 liqd^Take 5 mL by [...] (Crohn's [Other]) Mother . Vaibhav Carvalho APRN, EDUCATION ANALYST-C, [facility] Provided at: [place], [place] CC: Manuel Ferris MD [address] [facility] [address] documented in this encounterBethesda North Hospital04-16-2025 NoteOhiohealth Riverside Methodist Hospital04-14-2025 History of Present illness Narrative* Gordo Barfield MD - 09/04/2024 3:20 PM EDT Subjective Patient ID: Ariadna Haley is a 43 y.o. female who presents for Thyroid Nodule (Follow up ultrasound [facility] 08/24/24) Thyroid US shows a [id number] left inf pole TR4 nodule. Radiology notes [...] infection (HCC) ([facility]) 07/06/2023 Depression, recurrent ([facility]) 06/09/2023 Discoid lupus erythematosus ([facility]) 02/14/2022 Disturbance of skin sensation 07/06/2023 Elevated sed rate 03/05/2021 High total serum IgM 03/05/2021 Enthesopathy of hip region 07/06/2023 Essential hypertension ([facility]) 06/09/2023 Excessive and frequent menstruation with irregular cycle 09/24/2022 Family history of Crohn's disease 03/05/2021 Hair loss 03/05/2021 Hyperlipidemia ([facility]) 05/31/2014 USP current use of systemic steroids 02/04/2023 Long-term use of high-risk medication 06/15/2022 Long-term use of Plaquenil 03/05/2021 LPRD (laryngopharyngeal reflux disease) 07/06/2023 Megaloblastic anemia due to vitamin B12 deficiency 03/04/2022 Myalgia 07/06/2023 Obesity, Class III, BMI 40-49.9 (morbid obesity) ([facility]) 09/07/2022 Obstructive sleep apnea syndrome 05/20/2022 Oral lesion 07/06/2023 Pain, hip 07/06/2023 Rash and nonspecific skin eruption 03/05/2021 Steroid-induced osteoporosis ([facility]/HCC) 02/04/2023 Somnolence, daytime 05/20/2022 Secondary osteoarthritis of multiple sites 03/05/2021 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 02/04/2023 Swelling of lymph nodes 03/05/2021 Vitamin D deficiency 03/06/2021 Vitamin B12 deficiency 05/31/2014 Pure hypercholesterolemia, unspecified (CMS/HCC) 08/10/2023 Hoarse 08/10/2023 Thyroid nodule ([facility]/HCC) 08/10/2023 Shortness of breath 07/13/2023 Paroxysmal supraventricular tachycardia (CMS/HCC) 07/13/2023 PAC (premature atrial contraction) 07/13/2023 Degenerative disc disease, lumbar 11/08/2023 Paresthesias 11/08/2023 Nipple discharge 11/15/2023 Irregular periods/menstrual cycles 11/15/2023 Facet arthritis of lumbar region 12/15/2023 Prediabetes 08/24/2023 C. difficile diarrhea 03/07/2024 Diarrhea 03/07/2024 Duct ectasia of breast 03/07/2024 Frequent infections 04/01/2024 GERD (gastroesophageal reflux disease) 03/07/2024 History of vitamin D deficiency 10/05/2023 Hypogammaglobulinemia ([facility]) 04/01/2024 Insulin resistance 03/07/2024 Lupus erythematosus 04/06/2024 Sacroiliitis ([facility]) 04/06/2024 Resolved Ambulatory Problems Diagnosis Date Noted No Resolved Ambulatory Problems Past Medical History: Diagnosis Date Cervical lymphadenopathy COVID-19 vaccine administered Difficulty walking Fatigue Fibromyalgia, primary History of removal of cyst 2012 HTN (hypertension) (CMS/HCC) Hx of abnormal cervical Pap smear 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[facility]) Laryngopharyngeal reflux disease Lupus Nonscarring hair loss, unspecified Nontoxic goiter, unspecified (CMS/HCC) Nontoxic single thyroid nodule (CMS/[facility]) Numbness Oral thrush Sleep apnea Vitamin D [...] % gel ergocalciferol (Vitamin D2) 1.25 MG (44205 UT) capsule Take 50,000 Units by mouth [...] for more aggressive care documented in this encounterFreeman Health [id number] Telephone encounter Note* Telephone Encounter - Blank Kimball - 09/02/2024 10:28 AM EDT Called and spoke with patient, patient is scheduled for a VV on 10/07/24 at 8:00am. Patient stated will complete labs a walk in [facility]04-12-2025 Miscellaneous Notes* Telephone Encounter - Blank [...] diagnoses: Vitamin D deficiency documented in this encounterBethesda North Hospital04-11-2025 Telephone encounter Note * Telephone Encounter [...] above. Please process accordingly. Lynne Ni MD [facility]04-11-2025 Telephone encounter Note* Telephone Encounter - Cora Hunt, RN - [...] Ni MD Assoc. diagnoses: Vitamin D deficiency [facility]04-07-2025 Telephone encounter Note* Telephone Encounter - Renea Schneider MA - 08/28/2024 11:04 AM EDT Do you want labs? Patient coming in Wednesday09/06/24 for follow up treatment. Thanks, Renea Schneider MA [facility]04-01-2025 Miscellaneous Notes* Telephone Encounter - Renea Schneider MA - 08/28/2024 11:04 AM EDT Do you want labs? Patient coming in Wednesday09/06/24 for follow up treatment. Thanks, Renea Schneider MA documented in this encounterBethesda North Hospital04-01-2025 Miscellaneous Notes* Telephone Encounter - Renea Schneider MA - 11/20/2024 12:00 PM EDT Patient coming in for treatment visit Wednesday11/29/24. Please add lab orders. thanks. Renea Schneider MA documented in this encounterBethesda North Hospital03-27-2025 NoteOhiohealth Riverside Methodist Hospital03-18-2025 Telephone encounter Note* Telephone Encounter - [...] and patient is aware. Basia Samuel RN [facility]03-18-2025 Miscellaneous Notes* Telephone Encounter - Basia [...] aware. Basia Samuel RN documented in this encounterBethesda North Hospital03-18-2025 NoteOhiohealth Riverside Methodist Hospital03-18-2025 History of Present illness Narrative* Basia Samuel RN - 08/08/2024 9:03 AM EDT Patient states that she spoke with provider and she will defer IV iron for now, she is taking oral iron and will have labs rechecked in 1 month Basia Samuel RN documented in this encounterBethesda North Hospital03-05-2025 History of Present illness Narrative* Lois [...] lupus being treated by rheumatology at the [facility] on steroids, Plaquenil and monoclonal antibody [...] , Rfl: ergocalciferol (Vitamin D-2) 1.25 MG (60489 UT) capsule, Take 1 capsule (50,000 Units) [...] By signing my name below, Carina Dorantes [employer] SYSTEM INSTRUMENT MECHANIC , Scribe attest that this documentation has [...] exam, discussion and plan. documented in this encounterBarnesville Hospital Work Phone: 1(341) 532-875903-05-2025 Instructions* Patient Instructions* Aissatou Hanson RN - [...] time of your visit. documented in this encounterBarnesville Hospital Work Phone: 1(445) 272-874603-04-2025 History of Present illness Narrative* Bernabe English [...] ointment bid. On Plaquenil and Benlysta from remarketing rep and started IVIG from weatherstrip machine operator. Follow up Diagnosis: Hidradenitis Location: thighs [...] given frequent flares of thrush. Start Nystatin 188993 unit suspension qid x 14 days. Recommended [...] not swallow it. Related Medications nystatin (Mycostatin) 512124 UNIT/ML suspension Take 4 mL (400,000 Units) [...] is needed. Instructed to follow up with PURIFICATION SUPERVISOR for further work up. Next Visit: 1 year documented in this encounterFreeman Health [id number] History of Present illness Narrative* Luna Emanuel [...] been reviewed prior to dispensing the medication. Etcher Enameling Assessment Patient confirmed: Yes Med/dose confirmed: Yes Supplies needed: No supplies needed Missed doses: No Copay amount: 0 Payment confirmed: Yes Delivery method: FedEx Signature required: Waived on patient request Delivery address: [address] [place] [address] Delivery date: 07/27/24 Questions or concerns for the pharmacist?: No Did you have any side effects believed to be related to this medication, that resulted in hospitalization?: No Current Outpatient Medications on File Prior to Visit Medication Sig ucwwtnqacoAXIGO-mifqaf-vidudpspo (BMX 1:1:1) 1:1:1 liqd Take 5 mL [...] facility-administered medications on file prior to visit. [facility] RX SPECIALTY CLINICAL ASSESSMENT - [...] longer tolerated. Luna Emanuel documented in this encounterBethesda North Hospital03-04-2025 [facility]02-27-2025 NoteHNO ID: [id number] Author: ALHAJI VICTORIA, DO Service: ? Author Type: Physician Type: Progress Notes Filed: 07/21/2024 13:05 Note Text: VIRTUAL VISIT PROGRESS NOTE This is a virtual visit using [employer] Video Visit. It required patient-provider interaction for the medical decision making as documented below. I have communicated my name and active licensure. The patient's identity and physical location were verified at the time of this visit. Either the patient or their legal personal service representative has been informed of the [...] of 18 Current Outpatient Medications Medication Sig ulsbrypmxfXVJFT-wyzenn-sivuwrkos (BMX 1:1:1) 1:1:1 liqd Take 5 mL [...] WHILE ON* belimumab ( (more content not included)...[facility]02-27-2025 History of Present illness Narrative* Alhaji Victoria DO - 07/20/2024 11:41 AM EST VIRTUAL VISIT PROGRESS NOTE This is a virtual visit using [employer] Z[employer] Video Visit. It required patient- provider interaction for the medical decision making as documented below. I have communicated my name and active licensure. The patient's identity and physical location wereverified at the time of this visit. Either the patient or their legal personal service representative has been informed of the [...] of 18 Current Outpatient Medications Medication Sig cxfjipforfXSNCD-jmsinm-avlyhqrpp (BMX 1:1:1) 1:1:1 liqd Take 5 mL [...] on the R. The patient or authorized personal service representative has agreed to proceed with [...] axillary nodule which is being followed by carton machine operator. Through shared decision making with the [...] up with ID at this time. Alhaji Victoria DO July 21, 2024 documented in this encounterBethesda North Hospital02-26-2025 [place] [address] Pain Management Procedure Note Signed Patient: Ariadna Haley MR#: [id number] : 1980 Acct:[id number] Age/Sex: 43 / F Adm Date: 5 Loc: Room: Type: [facility] Attending Dr: Adolfo Kang MD Copies to: Gay De La Torre, TRUE Kang MD~ Pain Procedure PROCEDURE PERFORMED [...] MD 07/19/24 1104 Signed By: 07/19/24 1134 [facility]02-19-2025 Instructions* Patient Instructions* Marky Gasca PA-C - 07/12/2024 2:33 PM EST Alginate therapy (Reflux Raft, Reflux Gourmet) documented in this encounterBethesda North Hospital02-19-2025 NoteOhiohealth Riverside Methodist Hospital02-19-2025 History of Present illness Narrative* Marky Gasca PA-C - 07/12/2024 2:14 PM EST Images from the original note were not included. [facility] NOTE CC: Ariadna Haley is a [...] 4 weeks; sooner if clinically indicated Marky Gasca PA-C [facility] HPI: 43 year old [...] Current medication(s): Current Outpatient Medications Medication Sig amioywnoxuTSVDH-ynmawu-stnvbmukh (BMX 1:1:1) 1:1:1 liqd Take 5 mL [...] patient. OUTSIDE RECORDS: None PROCEDURE: None Marky Gasca PA-C [facility] Medical Decision Making: Problems: Low: Stable chronic illness and Acute, uncomplicated illness or injury Risk: Low: Low risk from testing/treatment Moderate: Drug management Medical Decision Making Level: 3 - Low documented in this encounterBethesda North Hospital02-17-2025 Evaluation note* Diagnosis Onset Date Resolution Status Admit Date Lumbosacral spondylosis acuteFebruary 2024 3:16pmOther chronic painacuteFebruary 2024 3:16pm SacroiliitisacuteFebruary 2024 3:16pm [facility] Work Phone: 1(452) 985-811002-17-2025 Evaluation note* Diagnosis Onset Date Resolution Status Admit Date Lumbosacral spondylosis acuteFebruary 2024 3:16pmOther chronic painacuteFebruary 2024 3:16pm SacroiliitisacuteFebruary 2024 3:16pmLumbosacral spondylosisacuteMarch 2024 3:40pmOther chronic painacuteMarch 2024 3:40pmSacroiliitisacute July 31, 2024 3:40pm [facility] Work Phone: 1(817) 352-517902-17-2025 Telephone encounter Note* Telephone Encounter - Krista Braswell MA - 07/10/2024 7:28 AM EST Pt was notified via . [facility]02-17-2025 Miscellaneous Notes* Telephone Encounter - Krista [...] accordingly. Lynne Ni MD documented in this encounterBethesda North Hospital02-16-2025 Telephone encounter Note * Telephone Encounter - Lynne Ni MD - 07/09/2024 3:48 PM EST Please Call patient if MyChart note not read to review results/released to My Chart if tests completed at [facility]: Mildly high normal wbc, glucose, [...] above. Please process accordingly. Lynne Ni MD [facility]02-06-2025 History of Present illness Narrative* Luna [...] been reviewed prior to dispensing the medication. Etcher Enameling Assessment Patient confirmed: Yes Med/dose confirmed: Yes Supplies needed: No supplies needed Missed doses: No Estimated days supply on hand: 1 Copay amount: 0 Payment confirmed: Yes Delivery method: FedEx Signature required: Waived on patient request Delivery address: [address] [place] [address], [facility] [address] Delivery date: 07/05/24 Questions or concerns for [...] facility-administered medications on file prior to visit. [facility] RX SPECIALTY CLINICAL ASSESSMENT - [...] longer tolerated. Luna Emanuel documented in this encounterBethesda North Hospital02-06-2025 NoteOhiohealth Riverside Methodist Hospital01-31-2025 Telephone encounter Note* Telephone Encounter - Krista Fonseca MA - 06/23/2024 8:27 AM EST Pt has been notified via [employer]. [facility]01-31-2025 Miscellaneous Notes* Telephone Encounter - Krista Fonseca MA - 06/23/2024 8:27 AM EST Pt has been notified via [employer]. * Telephone Encounter - Lynne Ni MD [...] accordingly. Lynne Ni MD documented in this encounterBethesda North Hospital01-30-2025 Telephone encounter Note * Telephone Encounter [...] above. Please process accordingly. Lynne Ni MD [facility]01-29-2025 Telephone encounter Note* Telephone Encounter - Sherrie Cortes - 06/21/2024 2:10 PM EST Thanks for the clarification! I didn't schedule the patient yet for Iron because of the question below so we are all good. Thank you! Sherrie Cortes [facility]01-29-2025 Miscellaneous Notes* Telephone Encounter - Sherrie [...] we will recheck. thanks documented in this encounterBethesda North Hospital01-29-2025 Telephone encounter Note * Telephone Encounter [...] is aware you will call if needed. [facility]01-29-2025 Telephone encounter Note* Telephone Encounter - Vaibhav Carvalho APRN.CNP - 06/21/2024 1:07 PM EST Ok that is fine she can try oral iron Ferrous sulfate 325 mg every other day. Ok to keep her next appointment and we will recheck. thanks [facility]01-28-2025 Telephone encounter Note* Telephone Encounter - Sherrie Cortes - 06/20/2024 8:38 AM EST Left another message for patient. Sent Zoodleshart to call back to schedule infusions when she's ready to schedule and provided phone number. Sherrie Cortes [facility]01-28-2025 Miscellaneous Notes* Telephone Encounter - MichellepattSherrie - 06/20/2024 8:38 AM EST Left another message for patient. Sent MyChart to call back to schedule infusions when she's ready to schedule and provided phone number. Sherrie Cortes * Telephone Encounter - Sophia Sherrie - 06/16/2024 3:32 PM EST Call placed [...] callback with any questions. documented in this encounterBethesda North Hospital01-24-2025 Telephone encounter Note * Telephone Encounter - Sherrie Cortes - 06/16/2024 3:32 PM EST Call placed to patient, no answer. Left detailed message to call back to schedule for Venofer. Sherrie Cortes [facility]01-24-2025 Telephone encounter Note* Telephone Encounter - Vaibhav Carvalho APRN.CNP - 06/16/2024 12:26 PM EST Called patient and left a message regarding iron infusions. I did inform patient that she is low oniron and we can replace with IV infusion. Will have the office call to schedule. Encouraged to callback with any questions. [facility]01-23-2025 Telephone encounter Note* Telephone Encounter - [...] Pt had recent mammogram that was negative [facility] [id number] Miscellaneous Notes* Telephone Encounter - KELVIN Cabrera [...] mammogram that was negative documented in this encounterFreeman Health [id number] History of Present illness Narrative* Iraida Pate APRN.TRUE - 06/14/2024 10:43 AM EST Glucose - SIBO CPT 13302 Hydrogen Breath Test Ariadna Haley 1980 June 14, 2024 Referring Physician: Bandar Portillo NP Indication: NSG TEST INDICATIONS: Diarrhea R19.7, Abdominal Pressure R10.9 Weight: 275 lbs Location: NSG [place] Duration of Test: 2 hrs Hydrogen Methane CO2 MEASURED CORRECTION FACTOR TESTERS NAME Baseline 9:00 am 1 5 5.1 1.07 Christopher Sullivan HODA Test Solution Given: 100 gm glucose 10 oz liquid Christopher Sullivan MA #1 - 15 minutes 9:15 am 1 5 4.1 1.34 Christopher Sullivan MA #2 - 30 minutes 9:30 am 1 5 4.6 1.19 Christopher SullivanHODA mcdermott #3 - 45 minutes 9:45 am 1 [...] Signature: Iraida Pate APRN.CNP documented in this encounterBethesda North Hospital01-21-2025 Progress note* [facility] [...] 13, 2024 TIME: 10:29 AM PAGER/CONTACT #: [facility]01-21-2025 Miscellaneous Notes* [facility] [...] 10:29 AM PAGER/CONTACT #: documented in this encounterBethesda North Hospital01-21-2025 NoteOhiohealth Riverside Methodist Hospital01-21-2025 History of Present illness Narrative* Vaibhav Carvalho APRN.CNP - 06/13/2024 9:07 AM EST Images from the original note were not included. NAME: Ariadna Haley [facility] NO.: [id number] DATE OF SERVICE: June 13, 2024 (Deven) [...] done 2 days ago at [facility] - awaiting results. B12 [...] injections. Shefollows with multiple doctors including and associate professor of geology, remarketing rep, business support professional and PCP. She has been told they [...] (Crohn's [Other]) Mother . Vaibhav Carvalho APRN, EDUCATION ANALYST-C, [facility] Provided at: [place], [place] CC: Manuel Ferris MD [address] [address] documented in this encounterBethesda North Hospital01-20-2025 NoteOhiohealth Riverside [facility] Hospital01-20-2025 History of Present illness Narrative* Lee Friedman - 06/12/2024 2:31 PM EST CMN RECEIVED BY [employer] VIA FAX, COMPLETED, AND PLACED IN PROVIDER MAILBOX FOR SIGNATURE Lee Friedman Coordinator III [facility] COMPANY SENDING CMN: Josh SIGNED AND DATED CMN, FAXED TO DME & CONFIRMATION PAGE RECEIVED: 06.28.2024 documented in this encounterBethesda North Hospital01-20-2025 Telephone encounter Note * Telephone Encounter - Margret Cuenca MA - 06/12/2024 12:00 PM EST Patient has an OTV appointment on 06/13. Please place lab orders. Margret Cuenca MA [facility]01-20-2025 Miscellaneous Notes* Telephone Encounter - Margret Cuenca MA - 06/12/2024 12:00 PM EST Patient has an OTV appointment on 06/13. Please place lab orders. Margret Cuenca MA documented in this encounterBethesda North Hospital01-14-2025 History of Present illness Narrative* Luna [...] been reviewed prior to dispensing the medication. Etcher Enameling Assessment Patient confirmed: Yes Med/dose confirmed: Yes Supplies needed: No supplies needed Missed doses: No Estimated days supply on hand: 1 Copay amount: 0 Payment confirmed: Yes Delivery method: FedEx Signature required: Waived on patient request Delivery address: [address] [place] [id number] Delivery date: 06/08/24 Questions or concerns for [...] facility-administered medications on file prior to visit. [facility] RX SPECIALTY CLINICAL ASSESSMENT - [...] longer tolerated. Luna Emanuel documented in this encounterBethesda North Hospital01-14-2025 NoteOhiohealth [facility]01-14-2025 History of Present illness Narrative* KELVIN [...] Autoimmune disease ([facility]) 06/01/2023 Fibromyalgia 06/01/2023 Autonomic dysfunction 06/01/2023 [...] infection (HCC) ([facility]) 07/06/2023 Depression, recurrent ([facility]) 06/09/2023 Discoid lupus erythematosus ([facility]) 02/14/2022 Disturbance of skin sensation 07/06/2023 Elevated sed rate 03/05/2021 High total serum IgM 03/05/2021 Enthesopathy of hip region 07/06/2023 Essential hypertension (CMS/HCC) 06/09/2023 Excessive and frequent menstruation with irregular cycle 09/24/2022 Family history of Crohn's disease 03/05/2021 Hair loss 03/05/2021 Hyperlipidemia (CMS/HCC) 05/31/2014 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 designer current use of systemic steroids 02/04/2023 Long-term [...] Chronic laryngopharyngitis COVID-19 vaccine administered x 2 ([employer]) Difficulty walking Fatigue Fibromyalgia, primary GERD (gastroesophageal [...] Stomach cancer Father Mciheal Cancer Father Micheal Pancreatitis Father Micheal No [...] behalf of: KELVIN Cabrera documented in this encounterFreeman Health [id number] NoteOhiohealth Riverside Methodist Hospital12-23-2024 History of Present illness Narrative* Deisy Jaime LSW - 05/15/2024 9:09 AM EST Patient's name appears on the [facility] First Time Treatment Report for a non- oncology treatment. No psychosocial assessment is indicated. BILL Rosenberg Goals of Care Advance Directives are not on file. documented in this encounterBethesda North Hospital12-20-2024 History of Present illness Narrative* Luna [...] been reviewed prior to dispensing the medication. Etcher Enameling Assessment Patient confirmed: Yes Med/dose confirmed: Yes Supplies needed: No supplies needed Missed doses: No Estimated days supply on hand: 1 Copay amount: 0 Payment confirmed: Yes Delivery method: FedEx Signature required: Waived on patient request Delivery address: [address] [place] [address] Delivery date: 05/16/24 Questions or concerns for [...] facility-administered medications on file prior to visit. [facility] RX SPECIALTY CLINICAL ASSESSMENT - [...] longer tolerated. Luna Emanuel documented in this encounterBethesda North Hospital12-20-2024 NoteOhiohealth Riverside Methodist Hospital12-04-2024 Nurse Note* Radha Schofield MA - 04/26/2024 9:32 AM EST Patient Identification confirmed: yes. Injection given and documented on JUL per provider order. Radha Schofield MA [facility]12-04-2024 Nurse Note* Radha Schofield MA - 04/26/2024 9:32 AM EST Patient Identification confirmed: yes. Injection given and documented on MAR per provider order. Radha Schofield MA documented in this encounterBethesda North Hospital11-22-2024 Telephone encounter Note * Telephone Encounter - Gay Barnett - 04/14/2024 12:11 PM EST Patient coming in for a sibo breath test on Wednesday and has been on keflex for 3 days and needs to be on for ten so she will need to reschedule [facility]11-22-2024 Miscellaneous Notes* Telephone Encounter - Gay Barnett - 04/14/2024 12:11 PM EST Patient coming in for a sibo breath test on Wednesday and has been on keflex for 3 days and needs to be on for ten so she will need to reschedule documented in this encounterBethesda North Hospital11-19-2024 NoteOhiohealth Riverside [facility] Hospital11-18-2024 Miscellaneous Notes* Telephone Encounter - [...] prescription at designated insurance specialty pharmacy. Elpidio Acre, PharmD, BCOP * Telephone Encounter - Enma [...] Please advise. Sherrie Cortes documented in this encounterBethesda North [facility] Telephone encounter Note * Telephone Encounter - Sherrie Cortes - 04/10/2024 2:12 PM EST Patient requested this appointment be rescheduled for the end of April. She has been scheduled for 05/19, she is all set. Thank you! Sherrie Cortes [facility]11-18-2024 Telephone encounter Note* Telephone Encounter - Shantel Arce RPh - 04/10/2024 2:07 PM EST SUBQ products (eg, 20% [Cuvitru, Hizentra, Xembify]) or IM products (eg, 16% [GamaSTAN]) intravenously. It would depend upon insurance coverage and would be done as a retail prescription at designated insurance specialty pharmacy. Elpidio Arce, PharmD, BCOP [facility] Work Phone: [phone] Telephone encounter Note* Telephone Encounter - Enma [...] request Enma Hamm RN [facility]11-18-2024 Telephone encounter Note* Telephone Encounter - Enma Hamm RN - 04/10/2024 12:54 PM EST Called to discuss with pt. She was researching online and found SCIG a weekly subq injection to give herself that is less dose, and has less side effects. Pharmacy/[place]: please advise Enma Hamm RN [facility]11-18-2024 Telephone encounter Note* Telephone Encounter - Vera Njaera MD - 04/10/2024 12:26 PM EST Really sorry - I don't recall the home infusion of IVIG - I think it is safer to give it to her in-house as IV so we can monitor infusion reactions. Sorry if I created a misunderstanding. [facility]11-18-2024 History of Present illness Narrative* Gordo Barfield [...] infection (HCC) ([facility]) 07/06/2023 Depression, recurrent ([facility]) 06/09/2023 Discoid lupus erythematosus ([facility]) 02/14/2022 Disturbance of skin sensation 07/06/2023 Elevated sed rate 03/05/2021 High total serum IgM 03/05/2021 Enthesopathy of hip region 07/06/2023 Essential hypertension ([facility]/HCC) 06/09/2023 Excessive and frequent menstruation with irregular cycle 09/24/2022 Family history of Crohn's disease 03/05/2021 Hair loss 03/05/2021 Hyperlipidemia ([facility]) 05/31/2014 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 designer current use of systemic steroids 02/04/2023 Long-term use of high-risk medication 06/15/2022 Long-term use of Plaquenil 03/05/2021 LPRD (laryngopharyngeal reflux disease) 07/06/2023 Megaloblastic anemia due to vitamin B12 deficiency 03/04/2022 Myalgia 07/06/2023 Obesity, Class III, BMI 40-49.9 (morbid obesity) ([facility]) 09/07/2022 Obstructive sleep apnea syndrome 05/20/2022 Oral lesion 07/06/2023 Pain, hip 07/06/2023 Rash and nonspecific skin eruption 03/05/2021 Steroid-induced osteoporosis ([facility]/HCC) 02/04/2023 Somnolence, daytime 05/20/2022 Secondary osteoarthritis of multiple sites 03/05/2021 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 02/04/2023 Swelling of lymph nodes 03/05/2021 Vitamin D deficiency 03/06/2021 Vitamin B12 deficiency 05/31/2014 Pure hypercholesterolemia, unspecified ([facility]/HCC) 08/10/2023 Hoarse 08/10/2023 Thyroid nodule ([facility]) 08/10/2023 Shortness of breath 07/13/2023 Paroxysmal supraventricular tachycardia ([facility]) 07/13/2023 PAC (premature atrial contraction) 07/13/2023 [...] HTN (hypertension) ([facility]) Hx of abnormal cervical Pap smear [...] AREA NEEDED ergocalciferol (Vitamin D2) 1.25 MG (10166 [place]) capsule Take 50,000 Units by mouth [...] referred from the [facility] documented in this encounterFreeman Health [id number] Telephone encounter Note* Telephone Encounter - Sherrie [...] Triage was involved? Please advise. Sherrie Cortes [facility]11-15-2024 NoteOhio[facility]11-15-2024 History of Present illness Narrative* Deisy Jaime LSW - 04/07/2024 9:30 AM EST Patient's name appears on the [facility] First Time Treatment List for a non- oncology treatment. No psychosocial assessment is indicated. BILL Rosenberg Goals of Care Advance Directives are not on file SIGNATURE: JUSTICE Rosenberg PATIENT NAME: Ariadna Haley DATE: April 07, 2024 TIME: 9:31 AM PAGER/CONTACT #: documented in this encounterBethesda North Hospital11-14-2024 Evaluation + Plan note* Assessment & [...] her Raynaud's. All her questions were answered. [facility]11-14-2024 Miscellaneous Notes* Assessment & Plan Note [...] her questions were answered. documented in this encounterWadsworth-Rittman Hospital11-14-2024 History of Present illness Narrative* Hayden [...] Interpersonal Safety: Unknown (07/15/2023) Received from [facility] [place] [facility] Fear of Current or [...] lupus erythematosus ([facility]) - Vas art doppler lwr bilat mult lev/PVR; Future Cold extremities - [facility] [place] - Vas art doppler lwr bilat mult lev/PVR; Future Pain of lower extremity, unspecified laterality - [facility] [place], [place] - Vas art doppler lwr bilat mult lev/PVR; Future Rheumatoid arthritis, involving unspecified site, unspecified whether rheumatoid factor present ([facility]) Current smoker 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 Hayden Arciniega MD, ZIA, RPVI, FSVS, FACS [facility] This note was created with the assistance of a speech recognition program. While intending to generate a timely document that accurately reflects the content of the visit, no guarantee can be provided that every grammatical or spelling mistake has been or will be identified or corrected. Thank you for your understanding. documented in this encounterCleveland Clinic Union HospitalNexthink [facility] Medical [id number] Instructions* Patient Instructions* Hayden Arciniega MD - 04/06/2024 9:40 AM EST Are You Ready To Kick The Habit? Free Tobacco Cessation Resources [facility] Services [facility] provide all employees with free tobacco cessation services that include: Counseling to understand nicotine addiction Education about medications that can help you successfully quit Assistance with developing a plan to quit Call to set up an individual appointment or find out when group classes will be held: [facility]: [phone] [facility]: [phone] [facility]: [phone] [facility]: [phone] Quit Smoking Action Plan and Resources [facility] offers an eight-week, online smoking cessation plan to all [facility] employees, regardless of whether [employer] is your medical insurance provider. Go to [email or web address] and click the Health Risk Assessment and Resources link to get started. In the [employer] menu, click Action Plans instead of Health Risk Assessment to access the Quit Smoking Action Plan. Additional smoking cessation resources are also available to all [facility] employees on the [employer] web page at [email or web address]/quitsmoking. [employer] Tobacco Cessation Program If [employer] is your medical insurance provider, there are more free resources available to you, including: No copays or deductibles on local tobacco cessation counseling services to help you quit Prescription assistance for tobacco cessation medications to help you quit For details about the tobacco cessation program available to [employer] members, go to www.[employer] (Search: Tobacco Cessation Program). [place] Tobacco Quit Line 4-108-UATM-NOW ( ) is a toll-free, telephonic service that helps [place] residents quit smoking and using tobacco. It is staffed by experts who tailor a quit plan for you and provide you with advice. [place] Tobacco Quit Line 2-701-BSGF-NOW ( ) is a toll-free, telephonic service that helps [place] residents quit smoking and using tobacco. It is staffed by experts who tailor a quit plan for you and provide you with advice. Two weeks of nicotine replacement therapy may be provided at no charge, if needed. Additional Resources These national organizations also offer free information and resources to help you quit tobacco: [place] [employer]--www.cancer.org/healthy/stayawayfromtobacco [place] Heart Association--www.heart.org (Search: Quit Smoking) Centers for Disease Control and Prevention--www.cdc.gov/tobacco [place] Lung Association--www.lungusa.org documented in this encounterWadsworth-[facility]man [facility]11-11-2024 Telephone encounter Note* Telephone Encounter - Marky Nichols DO - 04/03/2024 9:36 AM EST Changed terbinafine to itraconazole at pt request. [facility] Health [id number] Miscellaneous Notes* Telephone Encounter - Marky Nichols DO - 04/03/2024 9:36 AM EST Changed terbinafine to itraconazole at pt request. documented in this encounterFreeman Health [id number] Telephone encounter Note* Telephone Encounter - Lynne [...] above. Please process accordingly. Lynne Ni MD [facility]11-10-2024 Miscellaneous Notes* Telephone Encounter - Lynne [...] accordingly. Lynne Ni MD documented in this encounterBethesda North Hospital11-10-2024 History of Present illness Narrative* Marky Nichols DO - 04/02/2024 1:30 PM EST HPI: [...] with her immunosuppressive therapy. documented in this encounterFreeman Health [id number] Instructions* Patient Instructions* Vera Najera MD - 04/01/2024 4:28 PM EST Obtain body fluid culture from [facility]. B12 shot today and every 4 weeks. Continue Folic acid. Frequent infections plan IVIG for hypogammaglobulinemia Start when approved. RTC 3 months repeat labs same day. IVIG same day. documented in this encounterBethesda North Hospital11-08-2024 NoteOhiohealth [facility]ide [facility]11-08-2024 History of Present illness Narrative* Ashly Castillo - 03/31/2024 12:29 PM EST CMN RECEIVED BY [employer] VIA FAX, COMPLETED, AND PLACED IN PROVIDER MAILBOX FOR SIGNATURE Ashly Castillo Human Capital Analyst II 03/31/2024 [employer] SENDING CMN: [email or web address] SIGNED AND DATED CMN, FAXED TO [email or web address] & CONFIRMATION PAGE RECEIVED: 04/11/2024 documented in this encounterBethesda North Hospital11-07-2024 Telephone encounter Note * Telephone Encounter - Mae Elaine - 03/30/2024 8:01 AM EST Pt is scheduled and instructions were sent thru my chart. [facility]11-07-2024 Miscellaneous Notes* Telephone Encounter - Mae [...] note were not included. documented in this encounterBethesda North Hospital11-06-2024 Telephone encounter Note * Telephone Encounter - Mae Elaine - 03/29/2024 9:02 AM EST Im for pt- saved time on 04/18 7:45 Also sent mychart msg. dm [facility]11-04-2024 NoteOhio[facility]11-04-2024 History of Present illness Narrative* Vera Najera MD - 03/27/2024 3:03 PM EST Images from the original note were not included. NAME: Jose Carlosfrancisco javierAriadna [facility] NO.: [id number] DATE OF SERVICE: March 27, 2024 (Marquis) Some elements in this clinic note that are critical to medical decision making have been carefully reviewed and included from a prior clinic note dated: December 27, 2023 (Liz) Referring Provider: Dr. Manuel Ferris Additional Clinicians involved in Ariadna De Pazhugo's care: VIRTUAL VISIT PROGRESS NOTE This is a virtual visit using [employer] Room Worker Video Call. It required patient- provider interaction for the medical decision making as documented below. I have communicated my name and active licensure. The patient's identity and physical location wereverified at the time of this visit. Either the patient or their legal personal service representative has been informed of the [...] noted. PLAN: Obtain body fluid culture from [facility]. B12 shot today and every 4 [...] done 2 days ago at [facility] - awaiting results. B12 [...] injections. Shefollows with multiple doctors including and associate professor of geology, remarketing rep, business support professional and PCP. She has been told they [...] CPE Hematology and Oncology Services Provided at: [place], [place] CC: Manuel Ferris MD [id number] [id number] documented in this encounterBethesda North Hospital10-31-2024 History of Present illness Narrative* KELVIN [...] Autoimmune disease ([facility]) 06/01/2023 Fibromyalgia 06/01/2023 Autonomic dysfunction 06/01/2023 [...] infection (HCC) ([facility]) 07/06/2023 Depression, recurrent ([facility]) 06/09/2023 Discoid lupus erythematosus ([facility]) 02/14/2022 Disturbance of skin sensation 07/06/2023 Elevated sed rate 03/05/2021 High total serum IgM 03/05/2021 Enthesopathy of hip region 07/06/2023 Essential hypertension ([facility]) 06/09/2023 Excessive and frequent menstruation with irregular cycle 09/24/2022 Family history of Crohn's disease 03/05/2021 Hair loss 03/05/2021 Hyperlipidemia ([facility]) 05/31/2014 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 designer current use of systemic steroids 02/04/2023 Long-term use of high-risk medication 06/15/2022 Long-term use of Plaquenil 03/05/2021 LPRD (laryngopharyngeal reflux disease) 07/06/2023 Megaloblastic anemia due to vitamin B12 deficiency 03/04/2022 Myalgia 07/06/2023 Obesity, Class III, BMI 40-49.9 (morbid obesity) ([facility]) 09/07/2022 Obstructive sleep apnea syndrome 05/20/2022 Oral lesion 07/06/2023 Pain, hip 07/06/2023 Rash and nonspecific skin eruption 03/05/2021 Steroid-induced osteoporosis ([facility]) 02/04/2023 Somnolence, daytime 05/20/2022 Secondary osteoarthritis of multiple sites 03/05/2021 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 02/04/2023 Swelling of lymph nodes 03/05/2021 Vitamin D deficiency 03/06/2021 Vitamin B12 deficiency 05/31/2014 Pure hypercholesterolemia, unspecified ([facility]) 08/10/2023 Hoarse 08/10/2023 Thyroid nodule ([facility]) 08/10/2023 Shortness of breath 07/13/2023 Paroxysmal supraventricular tachycardia ([facility]) 07/13/2023 PAC (premature atrial contraction) 07/13/2023 [...] HTN (hypertension) ([facility]) Hx of abnormal cervical Pap smear Insulin resistance Laryngopharyngeal reflux disease Lupus Numbness Oral thrush Prediabetes Sleep apnea Weakness of limb HISTORY PAST MEDICAL HISTORY SOCIAL HISTORY Past Medical History: Diagnosis Date Anxiety Cervical lymphadenopathy Chronic laryngopharyngitis COVID-19 vaccine administered x 2 ([employer]) Difficulty walking Fatigue Fibromyalgia, primary GERD (gastroesophageal reflux disease) History of removal of cyst 2012 tailbone x2 HTN (hypertension) ([facility]) Hx of abnormal cervical Pap smear Hyperlipidemia ([facility]) Insulin resistance Laryngopharyngeal reflux disease Lupus [...] Crohn's disease Mother Nieves Thyroid disease Mother Nieevs Stomach cancer Father Micheal Cancer Father Micheal [...] behalf of: KELVIN Cabrera documented in this encounterFreeman Health [id number] Nurse Note* Stacy Gutiérrez MA - 03/23/2024 10:16 AM EDT Patient Identification confirmed: yes. Injection given and documented on MAR per provider order. Stacy Gutiérrez MA [facility]10-31-2024 Nurse Note* Stacy Gutiérrez MA - 03/23/2024 10:16 AM EDT Patient Identification confirmed: yes. Injection given and documented on MAR per provider order. Stacy Gutiérrez MA documented in this encounterBethesda North Hospital10-28-2024 Telephone encounter Note * Telephone Encounter - Mae Elaine - 03/20/2024 12:37 PM EDT Images from the original note were not included. [facility]10-26-2024 History of Present illness Narrative* Lynne [...] visit. Either the patient or their legal personal service representative has been informed of the [...] Due to see vascular soon. Reports pain 5-10. Has hips/back stiffness minimal AM stiffness. Feels [...] neurology/on metoprolol for POTs, avoid aggravating triggers, rn long term care pain recommendations per primary [...] neurology/on metoprolol for POTs, avoid aggravating triggers, rn long term care pain recommendations per primary [...] Due for eye exam. Labs sent to [facility]/completed in 06/2021 (no results faxed to office, [...] COVID-19 original vaccine, age 12+ yr, monovalent (Vendigi - PURPLE TOP) 09/28/2020 10/19/2020 05/26/2021 COVID-19 vaccine, age 12+ yr (InnozECH COMIRNATY) 02/23/2023 COVID-19 vaccine, age 12+ yr, bivalent (Vendigi) 02/08/2022 Pneumovax no Flu shot no Tetanus [...] (33);NL cbc, cmp, negative hla b27; Outside [place] 06/2021 low vitamin D 16, vitamin b12-307;high [...] Z79.899 Long-term use of high-risk medication Z79.52 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 designer current use of systemic steroids M79.641, M79.642 Bilateral hand pain M32.9 Systemic lupus erythematosus, unspecified SLE type, unspecified organ involvement status ([facility]) E53.8 Vitamin B12 deficiency L93.0 Discoid [...] measures, may consider osteoporosis treatment if on rn long term care steroids/abnormal bmd, take vitamin D script [...] neurology/on metoprolol for POTs, avoid aggravating triggers, rn long term care pain recommendations per primary [...] (200mg) daily with a meal Please see application integrator every 6-12months while on Hydroxychloroquine. Start azathioprine [...] video & audio (virtual) or phone or [id number] patient care, completing clinical documentation, obtaining and/or [...] Dear Dr.Douglas Sai Ferris MD and Gay De La Torre CNP: I had the pleasure of seeing [...] by letter/electronic shared medical records. cc Gay De La Torre CNP;Dr.Douglas Sai Ferris MD Answers submitted by [...] Workers' Compensation? No Do you need an blower blast furnace? No [facility] MYCHART ZOOM MESSAGE Question 03/16/2024 [...] Percentile (range: 0 - 100) 1 2 F PROMIS CAT V1.0 - FATIGUE-28 DAYS Question [...] Percentile (range: 0 - 100) 4 5 [facility] SLAQ QUESTIONNAIRE Question 03/16/2024 7:51 PM EDT [...] my health Strongly Agree documented in this encounterBethesda North Hospital10-26-2024 NoteOhiohealth Riverside [facility] Hospital10-26-2024 Instructions* Patient Instructions* Lynne Ni MD [...] (200mg) daily with a meal Please see application integrator every 6-12months while on Hydroxychloroquine. azathioprine daily [...] touching your toes, sit-ups, using row machine rn long term care pain recommendations per primary [...] your usual activities immediately. documented in this encounterBethesda North Hospital10-25-2024 Telephone encounter Note * Telephone Encounter [...] above. Please process accordingly. Lynne Ni MD [facility]10-25-2024 Miscellaneous Notes* Telephone Encounter - Lynne [...] VIDEO SPEC EST 03/18/2024 9:00 AM [facility] REJ Last Ophthalmology Check for Plaquenil [...] Elevated sed rate IRON + TIBC [SQIRON] 05/28 Every 3 months 06/02/24 06/03/23 02/21/24 Auth. provider: Vera Najera MD Assoc. diagnoses: Megaloblastic anemia due to vitamin B12 deficiency, Elevated sed rate FERRITIN BLD [SQFERR] 05/28 Every 3 months 06/02/24 06/03/23 02/21/24 [...] [SQBLCUL] 01/27/24 04/27/24 01/27/24 Auth. provider: Alhaji Victoria DO Assoc. diagnoses: Pseudomonas infection BLOOD CULTURE [SQBLCUL] 01/27/24 04/27/24 01/27/24 Auth. provider: Alahji Victoria DO Assoc. diagnoses: Pseudomonas infection documented in this encounterBethesda North Hospital10-25-2024 Telephone encounter Note * Telephone Encounter [...] VIDEO SPEC EST 03/18/2024 9:00 AM [facility] REJ Last Ophthalmology Check for Plaquenil [...] Elevated sed rate IRON + TIBC [SQIRON] 05/28 Every 3 months 06/02/24 06/03/23 02/21/24 [...] [SQBLCUL] 01/27/24 04/27/24 01/27/24 Auth. provider: Alhaji Victoria DO Assoc. diagnoses: Pseudomonas infection BLOOD CULTURE [SQBLCUL] 01/27/24 04/27/24 01/27/24 Auth. provider: Alhaji Victoria DO Assoc. diagnoses: Pseudomonas infection [facility]10-24-2024 History of Present illness Narrative* Luan [...] Autoimmune disease ([facility]) 06/01/2023 Fibromyalgia 06/01/2023 Autonomic dysfunction 06/01/2023 [...] nursing note reviewed. Exam conducted with a department mgr present. Vitals: Estimated body mass index is [...] has discussed with Infectious Disease with Dr. Baer and Specialist at [facility]. Patient voiced that Dr. Baer recommended surgery, but patient feels that maybe excessive. Specialist at [facility] suggested monitoring. Patient has had mammogram. Patient does not put anything on her breast.Ruled out Mondor's Breast concerns. Discussed [place] Oil at night and Vitamin E lotion. Patient voiced that her breast feel brambila and heavier. Discussed growth of breast and proper support. Breastare not hot nor warm to the touch. Patient to obtain bilateral breast ultrasound. Patient to followup with routine annual appointment and as needed. Documented by Alicia Christine LPN on behalf of: Luan Valdivia DO documented in this encounterFreeman Health [id number] NoteOhiohealth Riverside Methodist Hospital10-16-2024 NoteBELLREGENC[facility] Note Chief Complaint: New patient here to establish care. Ref from Gay De La Torre CNP for hypertension. Former [facility] cardiology patient. Had echo a few weeks ago at [facility]. Says her BP is very low [...] past several months. She has seen 2-3 welding technician in the past. She has undergone a [...] on any stimulants including caffeinated beverages, alcohol, ankv-sjc-juremso Sudafed etc. If her symptoms of palpitations persist, particular if she has lightheadedness or dizziness, head upright tilt table test may be reasonable to evaluate for possible dysautonomia's I discussed the side effects and risks of long-term steroid therapy and recommended she discuss with her remarketing rep weaning off soon as possible Given her morbid obesity, her current symptoms and comorbidities are likely related to excessive weight: I encouraged physical activity, attempts to lose weigh (more content not included)...[facility] 03-07-2024 NoteOhiohealth Riverside [facility] Hospital10-15-2024 History of Present illness Narrative* BrittaniZamzam vizcarrazih - 03/07/2024 8:35 AM EDT CMN RECEIVED BY [employer] VIA FAX, COMPLETED, AND PLACED IN PROVIDER MAILBOX FOR SIGNATURE Lee Farooqayana Coordinator III 03.07.2024 [email or web address] COMPANY SENDING CMN: Josh SIGNED AND DATED CMN, FAXED TO DME & CONFIRMATION PAGE RECEIVED: 03.07.2024 documented in this encounterBethesda North Hospital10-01-2024 Telephone encounter Note * Telephone Encounter [...] 'too terrified to drive that far to [facility].' Further reviewed the reasoning behind the visit needing to be in-person and stated that I would have our museum service scheduler reach out if she is willingto accept an in-person appt. PT requested that I review with our clinical team if this can be a VV before she schedules. I let her know I will do so and be in touch. She had no further questions at this time. Luda Vargas Genetic Counseling Barrel Rifler Broach Additional: see Khoa for documentation of scheduling and cancellation with genetics in 2021 [facility]10-01-2024 Miscellaneous Notes* Telephone Encounter - Luda [...] 'too terrified to drive that far to [facility].' Further reviewed the reasoning behind the visit needing to be in-person and stated that I would have our museum service scheduler reach out if she is willingto accept an in-person appt. PT requested that I review with our clinical team if this can be a VV before she schedules. I let her know I will do so and be in touch. She had no further questions at this time. Luda Vargas Genetic Counseling [employer] Broach Additional: see Khoa for documentation of scheduling and cancellation with genetics in 2021 documented in this encounterBethesda North Hospital09-30-2024 Nurse Note* Kenzie Shannon MA - 02/21/2024 11:13 AM EDT Patient Identification confirmed: yes. Injection given and documented on JUL per provider order. Kenzie Shannon MA [facility]09-30-[facility] Nurse Note* Kenzie Shannon MA - 02/21/2024 11:13 AM EDT Patient Identification confirmed: yes. Injection given and documented on JUL per provider order. Kenzie Shannon MA documented in this encounterBethesda North Hospital09-27-2024 Telephone encounter Note * Telephone Encounter - Sherrie Jimenes - 02/18/2024 1:26 PM EDT Patient is calling the [facility] office requesting Dr. Ni to place a referral to genetics. Please advise. [facility]09-27-[facility]24 Miscellaneous Notes* Telephone Encounter - Sherrie Jimenes - 02/18/2024 1:26 PM EDT Patient is calling the [facility] office requesting Dr. Ni to place a referral to genetics. Please advise. documented in this encounterBethesda North Hospital09-24-2024 Telephone encounter Note * Telephone Encounter - Hansa Javed LPN - 02/15/2024 9:49 AM EDT [facility], OFFICE NOTES WITH CONFIRMATON NOTED. [facility]09-24-2024 Miscellaneous Notes* Telephone Encounter - Hansa Javed LPN - 02/15/2024 9:49 AM EDT PAP ORDER FAXED TO [facility] WITH DEMOGRAPHICS, OFFICE NOTES WITH CONFIRMATON NOTED. documented in this encounterBethesda North Hospital09-23-2024 History of Present illness Narrative* Elton (Electronic Coils Supervisor)Luda - 02/14/2024 2:32 PM EDT [facility] [...] been reviewed prior to dispensing the medication. Etcher Enameling Assessment Patient confirmed: Yes Med/dose confirmed: Yes Missed doses: No Estimated days supply on hand: 1 Next cycle/dose due: 02/17/24 Copay amount: 0 Payment confirmed: Yes Delivery method: FedEx Signature required: Waived on patient request Delivery address: [address] [place] [address]. [place], [place] Delivery date: 02/17/24 Questions or concerns [...] facility-administered medications on file prior to visit. [facility] RX SPECIALTY CLINICAL ASSESSMENT - [...] efficacy and/or no longer tolerated. Luda Conde [facility] [phone] documented in this encounterBethesda North Hospital09-23-2024 History of Present illness Narrative* Elton EpsteinElectronic Coils SupervisorLuda Benz - 02/14/2024 2:26 PM EDT Benefits investigation was conducted, indicating that a re-authorization is required for [employer]. PA was initiated and pending review. Plan Name: Keesha Armstrong Balderrama: [id number] [facility] [phone] documented in this encounterBethesda North Hospital09-23-2024 Instructions* Patient Instructions* Lexus Heck APRN.CNP [...] treatment, there are resources available at the [facility] such as a nutrition consultation or referral to weight management programs at our [facility]. Please let us know if we can [...] deductible,co-payments, and out of pocket expenses. DME: [employer] [phone] - Remember to clean your mask and equipment regularly, as directed. - Avoid use of ozone gear finisher, SoClean devices, or UV cleaning devices - [...] the central scheduling system for the [facility] at [phone]. [facility] now offers direct scheduling for patients to schedule appointments. Virtual visits are also available. Call the office at [phone], option #5 for questions. documented in this encounterBethesda North Hospital09-23-2024 History of Present illness Narrative* Lexus Heck APRN.CNP - 02/14/2024 8:00 AM EDT Images from the original note were not included. [facility] Virtual Visit Follow up/ Established patient visit Date of last visit : 07/27/2022 I have communicated my name and active licensure. The patient's identity and physical location wereverified at the time of this visit. Either the patient or their legal personal service representative has been informed of the [...] Return Visit in 6 months. Lexus Heck APRN.VP PRODUCT MARKETING Interval history : Here for follow up for sleep apnea management. SLEEP APNEA Sleep apnea type : JOSE RAFAEL Most Recent Apnea-Hypopnea Index (AHI): 5.3 (HSAT scored 4 %) Treatment : PAP therapy DME: Josh [place] fax: [phone] DME ph: [phone] PAP History: Current PAP settin-15 cm H2O. [...] are sorted in reverse-chronological order 04/12/2022 07/23/2022 [place] Sleepiness Scale Score 4 (No clinically significant [...] - Follow up 12 months. Lexus Heck APRN.VP PRODUCT MARKETING documented in this encounterBethesda North Hospital09-18-2024 History of Present illness Narrative* Zita [...] Chronic laryngopharyngitis COVID-19 vaccine administered x 2 ([employer]) Difficulty walking Fatigue Fibromyalgia, primary GERD (gastroesophageal reflux disease) History of removal of cyst 2013 tailbone x2 HTN (hypertension) (CMS/[facility]) Hx of abnormal cervical Pap smear [...] Depression: Not at risk (12/27/2023) [facility] PHQ-2 PHQ-2 score: 1 REVIEW OF [...] patient, and coordinating care. documented in this encounterFreeman Health SystemNnzwydviwv12-31-1233 NoteHNO ID: [id number] Author: ALHAJI VICTORIA, DO Service: ? Author Type: Physician Type: Progress Notes Filed: 01/27/2024 16:54 Note Text: VIRTUAL VISIT PROGRESS NOTE This is a virtual visit using [employer] Video Visit. It required patient-provider interaction for the medical decision making as documented below. I have communicated my name and active licensure. The patient's identity and physical location were verified at the time of this visit. Either the patient or their legal personal service representative has been informed of the [...] of green drainage. She saw her OB/ non emergency services ambulance driver. This was thought to be secondary to [...] SOB/WHEEZING, and NO DYSPHAG (more content not included)...[facility]09-05-2024 History of Present illness Narrative* Alhaji Victoria DO - 01/27/2024 10:10 AM EDT Images from the original note were not included. VIRTUAL VISIT PROGRESS NOTE This is a virtual visit using [employer] Zoom Video Visit. It required patient- provider interaction for the medical decision making as documented below. I have communicated my name and active licensure. The patient's identity and physical location wereverified at the time of this visit. Either the patient or their legal personal service representative has been informed of the [...] of green drainage. She saw her OB/ non emergency services ambulance driver. This was thought to be secondary to [...] caution Nystatin ordered for oral thrush Alhaji Victoria DO documented in this encounterBethesda North Hospital09-03-2024 Nurse Note* Margret Cuenca MA - 01/25/2024 11:30 AM EDT Patient Identification confirmed: yes. Injection given and documented on JUL per provider order. Margret Cuenca MA [facility]09-03-2024 Nurse Note* Margret Cuenca MA - 01/25/2024 11:30 AM EDT Patient Identification confirmed: yes. Injection given and documented on JUL per provider order. Margret Cuenca MA documented in this encounterBethesda North Hospital08-27-2024 History of Present illness Narrative* Arianne [...] and outcomes. Roland CamarilloD Clinical Pharmacist, Biolog[employer] [facility] ; Pool: P [facility] Pool #: [id number] Etcher Enameling Assessment Patient confirmed: Yes Med/dose confirmed: Yes Supplies needed: No supplies needed Missed doses: No Estimated days supply on hand: (At least 1 dose) Next cycle/dose due: 01/20/24 Copay amount: 0 Payment confirmed: Yes Delivery method: FedEx Signature required: Waived on patient request Delivery address: [address] [place] [address] Delivery date: 01/21/24 Questions or concerns for [...] facility-administered medications on file prior to visit. [facility] RX SPECIALTY CLINICAL ASSESSMENT - [...] no longer tolerated. Arianne Mckinley CPhT, Inflammatory/Allergy [facility] [phone] documented in this encounterBethesda North Hospital08-21-2024 Telephone encounter Note * Telephone Encounter - Krista Braswell MA - 01/12/2024 10:45 AM EDT Pt has been notified via ScoreBig. [facility]08-21-2024 Miscellaneous Notes* Telephone Encounter - Krista Fonseca MA - 01/12/2024 10:45 AM EDT Pt has been notified via ScoreBig. 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 Please process accordingly. Lynne Ni MD [facility]08-21-2024 Telephone encounter Note* Telephone Encounter - [...] Elevated sed rate COMP METABOLIC PANEL [SQCMP] 06/28 Every 3 months 06/02/24 06/03/23 11/24/23 [...] Lynne Ni MD Assoc. 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 [facility]08-08-2024 Miscellaneous Notes* Telephone Encounter - Krista Fonseca MA - 12/30/2023 1:34 PM EDT Spoke to pt aware of results and recommendations. * Telephone Encounter - Lynne Ni MD - 12/30/2023 12:31 PM EDT Please Call patient if MyChart note not read to review results/released to My Chart if tests completed at [facility]: One Borderline inflammatory test, wbc- will [...] vitamin b12 every month documented in this encounterBethesda North Hospital08-08-2024 Telephone encounter Note * Telephone Encounter - Lynne Ni MD - 12/30/2023 12:31 PM EDT Please Call patient if MyChart note not read to review results/released to My Chart if tests completed at [facility]: One Borderline inflammatory test, wbc- will [...] likely reactive, continue vitamin b12 every month [facility]08-05-2024 Telephone encounter Note* Telephone Encounter - Enma Hamm RN - 12/27/2023 12:49 PM EDT Pt informed of MM message and denies any questions, needs or concerns at this time. Appointments verified. Enma Hamm RN [facility]08-05-2024 Miscellaneous Notes* Telephone Encounter - Enma Hamm RN - 12/27/2023 12:49 PM EDT Pt informed of MM message and denies any questions, needs or concerns at this time. Appointments verified. Enma Hamm RN * Telephone Encounter - Neda Hill PA-C - 12/27/2023 12:44 PM EDT Please call and inform the patient that I reviewed her [facility] records and there is no evidence of a blood clot and she does not need to be on blood thinners. Neda Hill PA-C documented in this encounterBethesda North Hospital08-05-2024 Telephone encounter Note * Telephone Encounter - Neda Hill PA-C - 12/27/2023 12:44 PM EDT Please call and inform the patient that I reviewed her [facility] records and there is no evidence of a blood clot and she does not need to be on blood thinners. Neda Hill PA-C [facility] Work Phone: [phone] Nurse Note* Margret Cuenca MA - 12/27/2023 11:44 AM EDT Patient Identification confirmed: yes. Injection given and documented on MAR per provider order. Margret Cuenca MA [facility]08-05-2024 Nurse Note* Margret Cuenca MA - 12/27/2023 11:44 AM EDT Patient Identification confirmed: yes. Injection given and documented on MAR per provider order. Margret Cuenca MA documented in this encounterBethesda North Hospital08-05-2024 History of Present illness Narrative* Neda Hill PA-C - 12/27/2023 11:30 AM EDT Images from the original note were not included. NAME: Ariadna Haley [facility] NO.: [id number] DATE OF SERVICE: December 27, 2023 (Liz) [...] labs 1 week before. Request records from [facility] from PE/elevated d-dimer Frequent infections and [...] done 2 days ago at [facility] - awaiting results. B12 [...] injections. Shefollows with multiple doctors including and associate professor of geology, remarketing rep, business support professional and PCP. She has been told they [...] which included preparing to see the patient, myli-sm-clvy patient care, completing clinical documentation, obtaining and/or reviewing separately obtained history, performing a medically appropriate examination, counseling and educating the pat ient/family/caregiver, ordering medications, tests, or procedures, communicating with other HCPs (not separately reported), independently interpreting results (not separately reported), communicatingresults to the patient/family/caregiver, and care coordination (not separately reported). Neda Hill PA-C Hematology and Oncology Services Provided at: [place], [place] CC: Manuel Ferris MD [address] [address] documented in this encounterBethesda North Hospital07-22-2024 History of Present illness Narrative* Elton (Electronic Coils Supervisor)Luda - 12/13/2023 11:44 AM EDT [facility] [...] laboratory parameters, disease state markers and outcomes. Etcher Enameling Assessment Patient confirmed: Yes Med/dose confirmed: Yes Missed doses: No Estimated days supply on hand: 1 Next cycle/dose due: 12/16/23 Copay amount: 0 Payment confirmed: Yes Delivery method: FedEx Signature required: Waived on patient request Delivery address: [address] Delivery date: 12/17/23 Questions or concerns for [...] facility-administered medications on file prior to visit. [facility] RX SPECIALTY CLINICAL ASSESSMENT - INFLAMMATORY CONDITIONS V6: Assessment to use: Refill [facility] VACCINE INFORMATION [facility] TREATMENT PLAN INFORMATION Luda Conde CPhT [facility] [phone] documented in this encounterBethesda North Hospital07-08-2024 Nurse Note* Stacy Gutiérrez MA - 11/29/2023 1:47 PM EDT Patient Identification confirmed: yes. Injection given and documented on JUL per provider order. Stacy Gutiérrez MA [facility]07-08-2024 Nurse Note* Stacy Gutiérrez MA - 11/29/2023 1:47 PM EDT Patient Identification confirmed: yes. Injection given and documented on JUL per provider order. Stacy Gutiérrez MA documented in this encounterBethesda North Hospital07-05-2024 Telephone encounter Note * Telephone Encounter - Katherin Schneider RN - 11/26/2023 11:34 AM EDT Please sign pended script Maryam Schneider RN [facility]07-05-2024 Miscellaneous Notes* Telephone Encounter - Katherin Schneider RN - 11/26/2023 11:34 AM EDT Please sign pended script Maryam Schneider RN documented in this encounterBethesda North Hospital06-24-2024 History of Present illness Narrative* Aidee Quintanilla [facility] - 11/15/2023 1:00 PM EDT [facility] [...] laboratory parameters, disease state markers and outcomes. Etcher Enameling Assessment Patient confirmed: Yes Med/dose confirmed: Yes Missed doses: No Estimated days supply on hand: 1 Next cycle/dose due: 11/18/23 Copay amount: 0 Payment confirmed: Yes Delivery method: FedEx Signature required: Waived on patient request Delivery address: [address] [place] [address] [address] [place] Delivery date: 11/17/23 Questions or concerns for [...] facility-administered medications on file prior to visit. [facility] Visit Assessment - Inflammatory [...] Yes Aidee Quintanilla PharmD Clinical Pharmacist, [employer] [facility] ; Pool: P [facility] Pool #: [id number] Electronically signed by Aidee Quintanilla [facility] at 11/15/2023 1:48 PM EDT documented in this encounterBethesda North Hospital06-20-2024 Telephone encounter Note * Telephone Encounter [...] above. Please process accordingly. Lynne Ni MD [facility]06-20-2024 Miscellaneous Notes* Telephone Encounter - Lynne [...] High total serum IgM documented in this encounterBethesda North Hospital06-20-2024 Telephone encounter Note * Telephone Encounter [...] vitamin B12 deficiency, High total serum IgM [facility]06-06-2024 Telephone encounter Note* Telephone Encounter - Karina Morales RN - 10/28/2023 1:33 PM EDT Pt read mychart message. [facility]06-06-2024 Miscellaneous Notes* Telephone Encounter - Karina Morales RN - 10/28/2023 1:33 PM EDT Pt read ScoreBig message. * Telephone Encounter - Lynne Ni [...] soon! Warm regards, :) documented in this encounterBethesda North Hospital06-06-2024 Telephone encounter Note * Telephone Encounter [...] feel better soon! Warm Dr.Tsai oziel :) [facility]06-05-2024 Nurse Note* Margret Cuenca MA - 10/27/2023 2:43 PM EDT Patient Identification confirmed: yes. Injection given and documented on JUL per provider order. Margret Cuenca MA [facility]06-05-2024 Nurse Note* Margret Cuenca MA - 10/27/2023 2:43 PM EDT Patient Identification confirmed: yes. Injection given and documented on JUL per provider order. Margret Cuenca MA documented in this encounterBethesda North Hospital05-14-2024 History of Present illness Narrative* Lynne [...] visit. 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 Labs sent to [facility]/completed in 06/2021 (no results faxed to office, [...] COVID-19 original vaccine, age 12+ yr, monovalent (Vendigi - PURPLE TOP) 09/28/2020 10/19/2020 05/26/2021 COVID-19 vaccine, age 12+ yr, 2022- season (Vendigi) 02/23/2023 COVID-19 vaccine, age 12+ yr, bivalent (Vendigi) 02/08/2022 Pneumovax no Flu shot no Tetanus [...] (33);[place] cbc, cmp, negative hla b27; Outside [place] 06/2021 low vitamin D 16, vitamin b12-307;high [...] measures, may consider osteoporosis treatment if on rn long term care steroids/abnormal bmd, take vitamin D script [...] (200mg) daily with a meal Please see application integrator every 6-12months while on Hydroxychloroquine. Start azathioprine [...] touching your toes, sit-ups, using row machine rn long term care pain recommendations per primary [...] video & audio (virtual) or phone or moha-xb-ndue patient care, completing clinical documentation, obtaining and/or [...] Dear Dr.Douglas Sai Ferris MD and Gay De La Torre CNP: I had the pleasure of seeing [...] by letter/electronic shared medical records. cc Gay De La Torre CNP;Dr.Douglas Sai Ferris MD Answers submitted by [...] Workers' Compensation? No Do you need an blower blast furnace? No [facility] MYCHART ZOOM MESSAGE Question 2023 [...] 3 (WITHIN +/- 5) documented in this encounterBethesda North Hospital05-09-2024 Nurse Note* Renea Schneider MA - 09/30/2023 10:53 AM EDT Patient Identification confirmed: yes. Injection given and documented on JUL per provider order. Renea Schneider MA [facility]05-01-2024 Evaluation note* Author Ketty Mccall [facility] HospitalAuthoredMay 2023 [id number] female referred to the gastroenterology clinic for [...] switch omeprazole to pantoprazole and monitor symptoms [facility] Work Phone: [phone] Instructions* Patient Instructions* Vera Najera MD - 09/09/2023 4:47 PM EDT Follow up in 13 Weeks - labs 1 week before. B12 shot every 4 weeks. Continue Folic acid. documented in this encounterBethesda North Hospital04-18-2024 History of Present illness Narrative* Vera Najera MD - 09/09/2023 4:30 PM EDT NAME: Tera Ariadna [facility] NO.: [id number] DATE OF SERVICE: September 09, 2023 ([place]) Some elements in this clinic note that are critical to medical decision making have been carefully reviewed and included from a prior clinic note dated: June 10, 2023 ([place]) Referring Provider: Dr. Manuel Ferris Additional Clinicians involved in Ariadna Haley's care: VIRTUAL VISIT PROGRESS NOTE This is a virtual visit using [employer] Spinning Room Worker Video Call. It required patient- provider interaction for the medical decision making as documented below. I have communicated my name and active licensure. The patient's identity and physical location wereverified at the time of this visit. Either the patient or their legal personal service representative has been informed of the [...] done 2 days ago at [facility] - awaiting results. B12 [...] injections. Shefollows with multiple doctors including and associate professor of geology, remarketing rep, business support professional and PCP. She has been told they [...] Hematology and Oncology Services Provided at: [facility], [place], [place] CC: Manuel Ferris MD [address] [facility] [address] documented in this encounterBethesda North Hospital04-15-2024 Miscellaneous Notes* Telephone Encounter - Maynor Bryson MA - 09/06/2023 7:21 AM EDT patient has viewed the ScoreBig message per [place]. * Telephone Encounter - Lynne Ni MD - 09/04/2023 6:30 PM EDT Please Call patient if Zoodleshart note not read to review results/released to My Chart if tests completed at [facility]: Improved/Borderline wbc and one inflammatory [...] accordingly. Lynne Ni MD documented in this [facility]04-09-2024 Nurse Note* Margret Cuenca MA - 08/31/2023 10:35 AM EDT Patient Identification confirmed: yes. Injection given and documented on MAR per provider order. Margret Cuenca MA documented in this [facility]04-01-2024 Nurse Note* Renea Schneider MA - 09/30/2023 10:53 AM EDT Patient Identification confirmed: yes. Injection given and documented on MAR per provider order. Renea Schneider MA documented in this [facility]03-14-2024 Nurse Note* Margret Cuenca - 08/05/2023 11:16 AM EDT Patient Identification confirmed: yes. Injection given and documented on MAR per provider order. Margret Cuenca documented in this [facility]02-20-2024 Nurse Note* Margret Cuenca - 07/13/2023 12:01 PM EST Patient Identification confirmed: yes. Injection given and documented on MAR per provider order. Margret Cuenca documented in this [facility]02-20-2024 History of Present illness Narrative* Lois Holm [...] and is being cared for at the [facility] utilizing steroids, Plaquenil and injectable medic ation(Benlystal). The patient record indicating having had cardiac catheterization in [place] 3 years ago which was normal. I have the report available for my review. [facility] [...] lupus being treated by rheumatology at the [facility] on steroids, Plaquenil and monoclonal antibody [...] , Rfl: ergocalciferol (Vitamin D-2) 1.25 MG (15466 UT) capsule, Take 1 capsule (50,000 Units) [...] unspecified SLE type, unspecified organ involvement status ([facility]) 6. Palpitations 7. Obstructive sleep apnea syndrome 8. Morbid obesity ([facility]) 9. Bilateral lower extremity edema EKG done [...] exam, discussion and plan. documented in [facility] Work Phone: 1(540) 277-690102-20-2024 Instructions* Patient Instructions* Lila Tejeda LPN - [...] time of your visit. documented in this encounterBarnesville [facility] Work Phone: 1(386) 605-676202-13-2024 History of Present illness Narrative* Kade Early MD - 07/06/2023 2:30 PM EST Subjective [...] , Rfl: ergocalciferol (Vitamin D2) 1.25 MG (55940 UT) capsule, Take 50,000 Units by mouth [...] Chronic laryngopharyngitis COVID-19 vaccine administered x 2 (Weed[employer]) History of removal of cyst 2013 tailbone [...] reflexes: Stu's absent. Ankle clonus absent. Coordination Lfscme-lh-yaqp, rapid alternating movements and hefg-lx-zugo normal bilaterally without dysmetria. Gait Normal casual, toe, heel and tandem gait. Romberg is absent. Assessment/Plan Diagnoses and all orders for this visit: Autoimmune disease ([facility]) - Protein electrophoresis, serum; Future - [...] Lyrica 100 mg TID. She is on mg once daily. Increase prednisone 10 mg BID for 10 days. documented in this encounterFreeman Health [id number] History of Present illness Narrative* Michelle Jasmine, 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 PRODUCT MARKETING - 06/09/2023 8:30 AM EST Ariadna Haley is a 42 y.o. female that presents to the office today for new patient evaluation asself referral for palpitations and elevated heart rates. She has a PMH of HTN, HLD, tachycardia, anemia, JOSE RAFAEL with CPAP compliance, lupus, autonomic dysfunction, arthritis, chronic back pain. She has undergone cardiac workup in the past in [place] as noted below. She also states that she follows withNeurology for possible POTS syndrome. Admits to daily tobacco use, 1 pack of cigarettes per day. Denies vaping, ETOH, recreational drugs. Admits to drinking approximately 1 pot of coffee per day. Denies daily exercise. 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 She is in a assisted relations ship and has children. Family history [...] , Rfl: ergocalciferol (Vitamin D-2) 1.25 MG (94928 UT) capsule, Take 1 capsule (50,000 Units) [...] to prepare this document. documented in this [facility] Work Phone: 1(765) 110-929701-03-2024 Instructions* Patient Instructions* Christie Phan MD - 05/26/2023 5:43 PM EST Images from the original note were not included. https://[employer]ava [employer]/tofu-bolognese/ https://nutritionstudies.org/fgf-qb-eqzhdjjyk-ucdjfxhn-qa-vlnhi-f-kziki-wguw-randee ww-dzadx-qcedmganb/ https://www.DermaMedics/blog/plantbasedkids https://grabHalo/gbwdl-ihpva-mzcm-for-kids/ https://Atempo/osa-yr-nrwluklnxe-zpli-zzwv-aj-p-lhdrf-husto-diet/ WHAT TO EAT? Breakfast: Overnight Oats Base ingredients: 1/3 cup rolled oats, 1/3 cup plain almond milk, 1tsp kyle seeds. Optional add-ins: cinnamon, flax seeds, honey or maple syrup, nut butter, chopped nuts. Toppings: Any fresh fruit chopped. Mix together and place in refrigerator. Can make 5 at a time for the whole week. Homemade fresh oatmeal. Can also make in the crockpot. New Zealander muffin/almond butter topped with fresh berries New Zealander muffin, cooked egg/egg white, tomato, thin slice citizen of [place] cheese Fresh berries, hard boiled egg, whole wheat toast Plain yogurt topped with berries, unsalted nuts, drizzle of honey Whole grain toast/New Zealander muffin topped with mashed avocado and tomatoes Lunch: Dinner leftovers packed in Tupperware, side of fruit Salad mixture topped with a protein (chick breast/tuna/hard boiled egg/beans), dressing and side offruit Dinner - Refer to plate buyer planner pictures to help select foods and portion ratios of protein, vegetables/starches. Keep it simple and rotate your favorite meals. Sheet nix meals Soups Grilled protein/vegetables/side of starch (plate buyer planner picture) Stir can with protein, mixed vegetables, and riced cauliflower or portion controlled whole grain rice. Make your own bowls - Thai/Guamanian/ theme [place] with Zoodles (spiralized vegetable noodles). Roasted vegetable wraps Alter traditional recipes to reflect HIGH QUALITY ingredients in the right QUANTITIES. Snacks - portion controlled: Raw veggies (can have with hummus, mashed avocado, salsa). Unsalted nuts Fruit (1 serving). (optional side of peanut butter) Air pop popcorn [place] and low fat citizen of [place] cheese rolled up String cheese Protein balls (mix rolled oats, nut butter, flax seeds, dash almond milk). Beverages: Water Coffee, Hot tea Unsweetened ice tea EATING OUT: Research menu online, include nutritional information. Make your order decision before getting to restaurant. Stick to recommended portions (plate buyer planner picture). Ask for substitutions or modifications. [...] baked potato, sprouted grain bread, chick peas https://www.Conformia Software.com/article/0080772/dhihgxkoaxsxh-ddpk-ygwu-for-beginners / https://www.Conformia Software.com/category/4274/shxvmnalkgjpu-acdz-uiqmoa/ https://www.Conformia Software.com/category/4300/zsgsdutjivjvs-jvbh-rgxp-plans/ My current favorite cookbooks are documented in this encounterBethesda North Hospital01-03-2024 History of Present illness Narrative* Christie Phan MD - 05/26/2023 5:00 PM EST Images from the original note were not included. [facility] Follow-Up Appointment [...] the date of the service which included qwys-sg-ocjw patient care, completing clinical documentation, performing a medically appropriate examination, counseling and educating the patient/family/caregiver, and ordering medications, tests, or procedures. Christie Phan MD, MA, [facility] Lifestyle Medicine Specialist documented in this encounterBethesda North Hospital12-04-2023 Miscellaneous Notes* Telephone Encounter - Renate Lawrence MA - 04/26/2023 5:26 PM EST Medication pending with new pharmacy information. documented in this encounterBethesda North Hospital12-04-2023 History of Present illness Narrative* Christie Phan MD - 04/26/2023 4:15 PM EST Images from the original note were not included. [facility] Virtual Follow-Up [...] the date of the service which included ccau-ec-zsxz patient care, completing clinical documentation, performing a medically appropriate examination, counseling and educating the patient/family/caregiver, and ordering medications, tests, or procedures. I have communicated my name and active licensure. The patient's identity and physical location wereverified at the time of this visit. Either the patient or their legal personal service representative has been informed of the risks and benefits of -- and alternatives to -- treatment through a remote evaluation andconsents to proceed with the evaluation remotely. Christie Phan MD, MA, [facility] Lifestyle Medicine Specialist documented in this encounterBethesda North Hospital12-04-2023 Nurse Note* Renate Lawrence MA - 04/26/2023 2:46 PM EST Spoke to Ariadna Haley, confirmed patient is registered on [employer] and is prepared for their appointment. Confirmed the patient has updated medications, allergies, and questionnaires via [employer]. Informed patient if there is an issue with the connection, provider will send the patient a secure link. If provider is running late, patient should remain connected to the visit. Patient verbalized understanding. documented in this [facility]11-30-2023 Miscellaneous Notes* Telephone Encounter - Enma Hamm RN - 04/22/2023 3:48 PM EST Pt called for Iron results; possible need for transfusion. Pt aware no need for iron infusion at this time. Enma Hamm, RN documented in this [facility]11-24-2023 History of Present illness Narrative* Kenzie Shannon - 04/16/2023 10:55 AM EST Patient Identification confirmed: yes. Injection given and documented on JUL per provider order. Kenzie Shannon documented in this [facility]10-27-2023 History of Present illness Narrative* Kenzie Shannon - 03/19/2023 11:06 AM EDT Patient Identification confirmed: yes. Injection given and documented on JUL per provider order. Kenzie Shannon documented in this [facility]10-24-2023 History of Present illness Narrative* Marija Ziegler - 03/16/2023 10:13 AM EDT CMN RECEIVED BY [employer] VIA FAX, COMPLETED, AND PLACED IN PROVIDER MAILBOX FOR SIGNATURE On 2022 By Marija Ziegler Human Capital Analyst II. [email or web address] COMPANY SENDING CMN: JOSH SIGNED AND DATED CMN, FAXED TO DME & CONFIRMATION PAGE RECEIVED: 03.24.[address] [facility]10-19-2023 History of Present illness Narrative* Beatriz Sanchez [...] LPN In Department: RHEUMATOLOGY documented in this encounterBethesda North Hospital10-18-2023 Miscellaneous Notes* Telephone Encounter - Christie Phan MD - 03/10/2023 2:18 PM EDT Spoke with patient. We stopped her trulicity because of side effects. She only took the cymbalta for a week. She will restart and we will see how she is doing in 2 months. Have also ordered insulin labs to check for insulin resistance. documented in this encounterBethesda North Hospital10-09-2023 Miscellaneous Notes* Telephone Encounter - Lynne Ni MD - 03/01/2023 3:27 PM EDT For chart: Eye exam 02/26/23 no ocular complication related to medication. * Telephone Encounter - Beatriz Sanchez LPN - 03/01/2023 2:38 PM EDT Received eye exam from [facility] on your desk for review. documented in this encounterBethesda North Hospital09-29-2023 Nurse Note* Radha Kebede MA - 02/19/2023 11:48 AM EDT Patient Identification confirmed: yes. Injection given and documented on JUL per provider order. Radha Schofield MA documented in this encounterBethesda North Hospital09-29-2023 Instructions* Patient Instructions* Vera Najera MD - 02/19/2023 11:40 AM EDT B12 shot today and every 4 weeks. Continue Folic acid. Follow up in 8 Weeks - labs 1 week before. documented in this encounterBethesda North Hospital09-29-2023 History of Present illness Narrative* Vera Najera MD - 02/19/2023 11:32 AM EDT Images from the original note were not included. AMBULATORY TELEPHONE VISIT Ariadna Melissa Branchfrancisco javier has consented to this telephone encounter. Persons Present: Patient and myself Chief Complaint/Reason: Anemia; To review recent blood work. HPI: Total Time Spent: 21 minutes Rebekah Rojas APRN.VP PRODUCT MARKETING NAME: Jose Carlosfrancisco javierAriadna CLINIC NO.: [id number] DATE OF SERVICE: February 19, 2023 ([place]) [...] done 2 days ago at [facility] - awaiting results. B12 [...] injections. Shefollows with multiple doctors including and associate professor of geology, remarketing rep, business support professional and PCP. She has been told they [...] which included preparing to see the patient, dkmu-wh-lllq patient care, completing clinical documentation, performing a medically appropriate examination, counseling and educating the patient/family/caregiver, ordering medications, tests, or p rocedures, and independently interpreting results (not separately reported). Vera Najera MD, CPE Hematology and Oncology Services Provided at: [place], [place] CC: Manuel Ferris MD [facility] [address] documented in this encounterBethesda North Hospital09-26-2023 Miscellaneous Notes* Telephone Encounter - Lynne [...] TEACHING 03/11/2023 7:30 AM RHEU [facility] NICKIE VIDEO SPEC EST 08/12/2023 9:00 AM [facility] Last Ophthalmology Check for Plaquenil [...] diagnoses: Vitamin D deficiency documented in this encounterBethesda North Hospital09-18-2023 Miscellaneous Notes* Telephone Encounter - Edgardo Carlos - 02/08/2023 11:12 AM EDT Spoke with patient Will get labs done when she does labs in Dec for [place]/Onc Mailed orders for DXA to pt so she can go to [facility] Pre cert Benlyst Scheduled Teaching visit for 4 weeks out to give time for ins and to receive medication. Will reschif not auth or received Scheduled [address] Ni in 6 mo Edgardo Carlos February 08, 2023 11:15 AM * Telephone Encounter - Lynne Ni MD - 02/04/2023 8:40 AM EDT Please call and schedule nonfasting labs 04/2023 Due for bone mineral density (1st time) patient requests order for [place] Please schedule follow up office visit for [...] accordingly. Lynne Ni MD documented in this encounterBethesda North Hospital09-14-2023 History of Present illness Narrative* Carlene Rendon - 02/04/2023 9:31 AM EDT [facility] received prescription(s) for Benlysta from Dr. Ni. Benefits investigation was conducted, indicating that a prior authorization is required by patients plan with [facility]. Encounter will be updated once prior authorization has been submitted by [facility]. Carlene Rendon CPhT [facility], Inflammatory P: [phone] F: [phone] documented in this encounterBethesda North Hospital09-14-2023 History of Present illness Narrative* Lynne [...] visit. Either the patient or their legal personal service representative has been informed of the [...] neurology/on metoprolol for POTs, avoid aggravating triggers, rn long term care pain recommendations per primary [...] Due for eye exam. Labs sent to [facility]/completed in 06/2021 (no results faxed to office, [...] pain: yes H/o precedent/frequent infection(s): as above Enthesopathy/[place]'s/heel/plantar tenderness: hands random painful/tingling Skin thickening, psoriasis, [...] COVID-19 original vaccine, age 12+ yr, monovalent (Vendigi - PURPLE TOP) 09/28/2020 10/19/2020 05/26/2021 COVID-19 vaccine, age 12+ yr, bivalent (Vendigi) 02/08/2022 Pneumovax no Flu shot no Tetanus [...] (33);NL cbc, cmp, negative hla b27; Outside [place] 06/2021 low vitamin D 16, vitamin b12-307;high [...] neurology/on metoprolol for POTs, avoid aggravating triggers, rn long term care pain recommendations per primary care provider/pain clinic/patient currently declined cymbalta/lyrica, see ortho, prn brace, start fall precautions, answered all questions and concerns, patient voiced understanding. RECOMMENDATION/PLAN: [facility] on 02/04/23 DXA-AXIAL SKELETON DXA-FOREARM SKELETON Reviewed [...] (200mg) daily with a meal Please see application integrator every 6-12months while on Hydroxychloroquine. Start azathioprine [...] touching your toes, sit-ups, using row machine rn long term care pain recommendations per primary [...] video & audio (virtual) or phone or ksjz-oy-lsks patient care, completing clinical documentation, obtaining and/or [...] Dear Dr.Douglas Sai Ferris MD and Gay De La Torre CNP: I had the pleasure of seeing [...] by letter/electronic shared medical records. cc Gay De La Torre CNP;Dr.Douglas Sai Ferris MD [facility] AMBULATORY VISIT INTAKE QUESTIONNAIRE Question 02/02/2023 [...] Medication Reposition Cold Heat Positioning Comments [facility] ADDITIONAL DEMO Question 02/02/2023 10:32 PM EDT - Filed by Patient Is this visit related to an accident, other than Workers' Compensation? No Is this visit related to Workers' Compensation? No Do you need an blower blast furnace? No [facility] MYCHART ZOOM MESSAGE Question 02/02/2023 10:32 [...] < or = 5) documented in this encounterBethesda North Hospital09-14-2023 Instructions* Patient Instructions* Lynne Ni MD [...] (200mg) daily with a meal Please see application integrator every 6-12months while on Hydroxychloroquine. azathioprine daily [...] your usual activities immediately. documented in this encounterBethesda North Hospital09-05-2023 Miscellaneous Notes* Telephone Encounter - Maynor Bryson MA - 01/26/2023 7:46 AM EDT patient has viewed the Score[employer] message per [place]. * Telephone Encounter - Lynne Ni MD - 01/24/2023 8:04 PM EDT Please Call patient if [employer] note not read to review results/released to My Chart if tests completed at [facility]: mildly high normal wbc- will [...] accordingly. Lynne Ni MD documented in this encounterBethesda North Hospital09-01-2023 Nurse Note* Radha Kebede MA - 01/22/2023 12:17 PM EDT Patient Identification confirmed: yes. Injection given and documented on JUL per provider order. Radha Schofield MA documented in this encounterBethesda North Hospital08-22-2023 Miscellaneous Notes* Telephone Encounter - Christie [...] pharmacy. Milagro Mendiola MA documented in this encounterBethesda North Hospital08-11-2023 History of Present illness Narrative* Misty Nelson MD - 01/01/2023 10:51 AM EDT VIRTUAL VISIT PROGRESS NOTE This is a virtual visit using [employer] video visit. It required patient-provider interaction for themedical decision making as documented below. I have communicated my name and active licensure. The patient's identity and physical location wereverified at the time of this visit. Either the patient or their legal personal service representative has been informed of the [...] otitis or sinusitis No pneumonia She sees remarketing rep and was diagnosed with lupus She is on Plaquenil, azathioprine Prednisone 10mg once daily for the past year; every few months she gets treated with higher doses of prednisone for flares of her symptoms The medications seem to help the body aches She saw the weatherstrip machine operator Treated with B12 and folic [...] visit. Misty Nelson MD documented in this encounterBethesda North Hospital07-28-2023 Miscellaneous Notes* Telephone Encounter - Rebekah Rojas APRN.CNP - 12/18/2022 10:48 AM EDT Spoke with patient this morning, 12/18/2022. Rebekah Rojas APRN.TRUE * Telephone Encounter - Lidia Argueta RN - 12/18/2022 9:31 AM EDT Pt called youth corrections officer service last evening stating she was suppose to have a phone call with Rebekah at 330 and never received a call. Pt is still waiting (536 pm 12/17/22). Please advise Lidia Argueta RN documented in this encounterBethesda North Hospital07-28-2023 History of Present illness Narrative* Rebekah [...] Total Time Spent: 21 minutes Rebekah Rojas APRN.VP PRODUCT MARKETING NAME: Ariadna Haley CLINIC NO.: [id number] DATE OF SERVICE: October 22, 2022 (Marquis) [...] done 2 days ago at [facility] - awaiting results. B12 [...] injections. Shefollows with multiple doctors including and associate professor of geology, remarketing rep, business support professional and PCP. She has been told they [...] which included preparing to see the patient, miwf-nt-izaj patient care, completing clinical documentation, performing a medically appropriate examination, counseling and educating the patient/family/caregiver, ordering medications, tests, or p rocedures, and independently interpreting results (not separately reported). Vera Najera MD, CPE Hematology and Oncology Services Provided at: [place], [place] CC: Manuel Ferris MD [address] [facility] [address] documented in this encounterBethesda North Hospital07-26-2023 Miscellaneous Notes* Telephone Encounter - Pamella Bettencourt RN - 12/16/2022 1:14 PM EDT Pt notified and verbalizes understanding. Clerical: Please change tomorrow's appointment to a phone visit at the end of Rebekah's day. Preferred number is [phone]. In addition, pt will be in next 12/25/22 @ 1130 for her B12 shot. Please add her to the MA schedule. Thanks! Pamella Bettencourt RN * Telephone Encounter - Rebekah Rojas APRN.CNP - 12/16/2022 12:56 PM EDT That would be okay. Have her added at the end of the day. Thanks, Rebekah Rojas APRN.VP PRODUCT MARKETING * Telephone Encounter - Pamella Bettencourt RN [...] schedule? Pamella Bettencourt RN documented in this encounterBethesda North Hospital07-23-2023 Miscellaneous Notes* Telephone Encounter - Vera Najera MD - 12/13/2022 8:59 PM EDT No clinical utility or implication for a low anion gap. No other concerning findings. I hope that helps. * Telephone Encounter - Enma Hamm RN - 12/08/2022 1:34 PM EDT Zoodleshart message from pt: Hi, just got some [...] advise Enma Hamm RN documented in this encounterBethesda North Hospital07-04-2023 Miscellaneous Notes* Telephone Encounter - Lynne [...] accordingly. Lynne Ni MD documented in this encounterBethesda North Hospital06-29-2023 Nurse Note* Margret Cuenca - 11/19/2022 11:01 AM EDT Patient Identification confirmed: yes. Injection given and documented on JUL per provider order. Margret Cuenca documented in this encounterBethesda North Hospital06-01-2023 Nurse Note* Stacy Gutiérrez Ma - 10/22/2022 11:50 AM EDT Patient Identification confirmed: yes. Injection given and documented on MAR per provider order. Stacy Gutiérrez Ma documented in this encounterBethesda North Hospital06-01-2023 Instructions* Patient Instructions* Vera Najera MD - 10/22/2022 11:43 AM EDT B12 Shot today and every 4 weeks. Continue Folic acid. Follow up in 8 Weeks - labs 1 week before. documented in this encounterBethesda North Hospital06-01-2023 History of Present illness Narrative* Vera Najera MD - 10/22/2022 11:35 AM EDT Images from the original note were not included. NAME: Jose Carlosfrancisco javierAriadna [facility] NO.: [id number] DATE OF SERVICE: October 22, 2022 (Marquis) Some elements in this clinic note that are critical to medical decision making have been carefully reviewed and included from a prior clinic note dated: August 27, 2022 (Bob) Referring Provider: Dr. Maunel Ferris Additional Clinicians involved in Ariadna Haley's [...] done 2 days ago at [facility] - awaiting results. B12 [...] Updated Visit, August 27, 2022: Ariadna Melissa Tera returns for follow-up and B12 injection. She has missed a few B12 injections. Shefollows with multiple doctors including and associate professor of geology, remarketing rep, business support professional and PCP. She has been told they [...] which included preparing to see the patient, jjtg-gg-bntp patient care, completing clinical documentation, performing a medically appropriate examination, counseling and educating the patient/family/caregiver, ordering medications, tests, or p rocedures, and independently interpreting results (not separately reported). Vera Najera MD, CPE Hematology and Oncology Services Provided at: [place], [place] CC: Manuel Ferris MD [address] [facility] [address] documented in this encounterBethesda North Hospital05-04-2023 Nurse Note* Stacy Gutiérrez Ma - 09/24/2022 10:22 AM EDT Patient Identification confirmed: yes. Injection given and documented on JUL per provider order. Stacy Gutiérrez Ma documented in this encounterBethesda North Hospital04-18-2023 Miscellaneous Notes* Telephone Encounter - Stacy [...] Stacy Hernandez September 08, 2022 2:28 PM [facility] [phone] documented in this encounterBethesda North Hospital04-17-2023 History of Present illness Narrative* Christie Phan MD - 09/07/2022 2:00 PM EDT Images from the original note were not included. [facility] Virtual Follow-Up [...] which included preparing to see the patient, cfso-nn-gfba patient care, completing clinical documentation, performing a medically appropriate examination, counseling and educating the patient/family/caregiver, ordering medications, tests, or p rocedures, and communicating with other HCPs (not separately reported). I have communicated my name and active licensure. The patient's identity and physical location wereverified at the time of this visit. Either the patient or their legal personal service representative has been informed of the risks and benefits of -- and alternatives to -- treatment through a remote evaluation andconsents to proceed with the evaluation remotely. Christie Phan MD, MA, [facility] Lifestyle Medicine Specialist documented in this encounterBethesda North Hospital04-17-2023 Nurse Note* Milagro Mendiola MA - 09/07/2022 2:00 PM EDT Called pt to do intake for video visit pt unavailable lft vm msg sent my chart. Milagro Mendiola MA documented in this encounterBethesda North Hospital04-10-2023 Miscellaneous Notes* Telephone Encounter - Shantel Higgins MA - 08/31/2022 8:38 AM EDT called [facility] pharmacy - pharmacy had 1 refill remaining no action needed from our office documented in this encounterBethesda North Hospital04-06-2023 Nurse Note* Stacy Gutiérrez Ma - 08/27/2022 10:31 AM EDT Patient Identification confirmed: yes. Injection given and documented on JUL per provider order. Stacy Gutiérrez Ma documented in this encounterBethesda North Hospital04-06-2023 History of Present illness Narrative* Rebekah Rojas APRN.VP PRODUCT MARKETING - 08/27/2022 10:00 AM EDT Images from the original note were not included. NAME: Ariadna Haley [facility] NO.: [id number] DATE OF SERVICE: August 27, 2022 (Bob) [...] injections. Shefollows with multiple doctors including and associate professor of geology, remarketing rep, business support professional and PCP. She has been told they [...] stomach other (Crohn's [Other]) Mother Rebekah Rojas, STRAP MAKING MACHINE OPERATOR.VP PRODUCT MARKETING Hematology and Oncology Services Provided at: [place], [place] CC: Manuel Ferris MD [address] [facility] [address] I spent a total of 30 minutes on the date of the service which included preparing to see the patient, xskl-sp-bskl patient care, completing clinical documentation, obtaining and/or reviewing separately obtained history, performing a medically appropriate examination, counseling and educating the pat ient/family/caregiver, ordering medications, tests, or procedures, independently interpreting results (not separately reported), and communicating results to the patient/family/caregiver. documented in this encounterBethesda North Hospital03-29-2023 Miscellaneous Notes* Telephone Encounter - Freda [...] low vitamin b12- take over the counter 3857-6627 mcg daily. Improved/ normal rest of rheum [...] accordingly. Lynne Ni MD documented in this encounterBethesda North Hospital03-28-2023 Miscellaneous Notes* Telephone Encounter - Beatriz Sanchez LPN - 08/18/2022 8:32 AM EDT read by patient. * Telephone Encounter - [...] accordingly. Lynne Ni MD documented in this encounterBethesda North Hospital03-20-2023 Miscellaneous Notes* Telephone Encounter - Christie Phan MD - 08/10/2022 9:46 AM EDT [facility] requesting refill, patient never started according to [...] advise. Jami Everett Cma documented in this encounterBethesda North Hospital03-06-2023 Instructions* Patient Instructions* Lexus Heck APRN.CNP - [...] treatment, there are resources available at the [facility] such as a nutrition consultation or referral to weight management programs at our [facility]. Please let us know if we can assist with a referral. - Continue CPAP at 5-15 cmH2O. - Remember to clean your mask and equipment regularly, as directed. - You should be eligible for new supplies approximately every 3-6 months, depending on your insurance coverage. Contact your [employer] ([email or web address]) company for new supplies. -Your insurance requires [...] the central scheduling system for the [facility] at [phone]. [facility] now offers direct scheduling for patients to schedule appointments. Virtual visits are also available. If not covered by your insurance, there is a 35% discount. Please contact your insurance to determine coverage. Call the office at [phone], option #5 for questions. documented in this encounterBethesda North Hospital03-06-2023 History of Present illness Narrative* Lexus Heck APRN.CNP - 07/27/2022 10:30 AM EST Images from the original note were not included. [facility] Virtual Visit Follow [...] will have a prescription sent to a [email or web address] ([employer]) company - [facility] who will be calling you in [...] Tips for good sleep hygiene shared in [employer]. - Follow up in 2 months in the office. Recommend scheduling this appointment now to ensure the besttime for you. [facility] on 04/13/22 CONSULT TO SLEEP MEDICINE - ADULT CPAP/BIPAP/OTHER PAP THERAPY ORDER Lawanda Miranda MD Interval history : Here for follow up for sleep apnea management. SLEEP APNEA Sleep apnea type : JOSE RAFAEL Most Recent Apnea-Hypopnea Index (AHI): 5.3 Treatment : PAP therapy DME: Josh MOJICA fax: [phone] [facility] ph: [phone] PAP History: Current PAP settin-15 cm H2O. [...] or near accidents due to drowsy drivin [place] Sleepiness Scale 04/12/2022 07/23/2022 Score 4 (No [...] Visit in 6 months. Lexus Heck APRN.CNP I spent a total of 30 minutes on the date of the service which included preparing to see the patient, completing clinical documentation, counseling and educating the patient/family/caregiver and ordering medications, tests, or procedures. documented in this encounterBethesda North Hospital03-03-2023 Miscellaneous Notes* Telephone Encounter - Kyara [...] complete patient specific tasks. documented in this encounterBethesda North Hospital03-01-2023 Miscellaneous Notes* Telephone Encounter - eGm Mercedes RN - 07/22/2022 2:37 PM EST [employer] message sent documented in this [facility]12-28-2022 History of Present illness Narrative* Kenzie Shannon - 05/20/2022 2:28 PM EST Patient Identification confirmed: yes. Injection given and documented on JUL per provider order. Kenzie Shannon documented in this [facility]12-28-2022 Miscellaneous Notes* Addendum Note - Vera Najera MD - 05/20/2022 2:27 PM ESTAddended by: VERA NAJERA on: 05/20/2022 02:27 PM Modules accepted: Orders documented in this encounterCleveland [id number] Instructions* Patient Instructions* Vera Najera MD - 05/20/2022 2:23 PM EST B12 Shot Today and every 4 weeks Get fit for CPAP mask and setting this 05/28/2021 Continue Folic acid. RTC in 8 Weeks - labs 1 week before. documented in this encounterBethesda North Hospital12-28-2022 History of Present illness Narrative* Vera Najera MD - 05/20/2022 1:30 PM EST Images from the original note were not included. NAME: Jose Carlosfrancisco javierAriadna [facility] NO.: [id number] DATE OF SERVICE: May 20, 2022 (Marquis) [...] which included preparing to see the patient, nddy-cw-wsnu patient care, completing clinical documentation, performing a medically appropriate examination, counseling and educating the patient/family/caregiver, ordering medications, tests, or p rocedures, and independently interpreting results (not separately reported). Vera Najera MD, CPE Hematology and Oncology Services Provided at: [place], [place] CC: Vera Najera [address] [place] [address] [facility] [address] Manuel Ferris MD, MD [address] [facility] [address] [place]: [place] [address] [place] [address] documented in this encounterBethesda North Hospital12-13-2022 Miscellaneous Notes* Telephone Encounter - Gem Mercedes RN - 05/05/2022 2:39 PM EST Faxed order, office notes, demographics, and sleep study to: DME name: Josh Seo [facility] fax: [phone] [facility] ph: [phone] Confirmation received. documented in this encounterBethesda North Hospital12-13-2022 Miscellaneous Notes* Telephone Encounter - Gem Mercedes RN - 05/05/2022 12:00 PM EST MyChart message sent documented in this encounterBethesda North Hospital12-13-2022 Miscellaneous Notes* Telephone Encounter - ANALILIA Monterroso - 05/05/2022 11:36 AM EST [facility] received your PAP order. Due to a major [employer] recall and manufacturing shortage, we are unable to fulfill the request to provide your patient with a CPAP/BIPAP machine at this time. We will keep the request on file and provide when inventory is available or you can forward the order to another DME provider such as [facility], [employer] or [employer]. Caring for our patients is our top priority and we apologize for this delay. Thank you for your patience during this time. [phone] #1 documented in this encounterBethesda North Hospital12-02-2022 Miscellaneous Notes* Telephone Encounter - Ny [...] doctor has noted concern for EDS. Her remarketing rep has told her that she has Lupus. Based on her history, I noted we can offer in-person evaluations for herself and/or her son to see if any genetic testing may be useful. I validated and provided support on the difficulty with her ambulation and transport concerns. I notedGEOVANY does not have other locations and only available at [facility]. I offered social work and/or transport assistance for the visit. She declined this and will discuss with her regarding the transport. She verbalized understanding the reasons for in-person evaluation recommended. She has the [facility] line and will call to reschedule for an in-person evaluation at [facility]. Ny Lance MD Car Hopper, Associate Staff [facility] documented in this encounterBethesda North Hospital11-30-2022 Miscellaneous Notes* Telephone Encounter - Eliza [...] copy of the report. Confirmed patient's email [email or web address] Genetic Counselor Barrel Rifler Broach documented in this encounterBethesda North Hospital11-08-2022 Miscellaneous Notes* Telephone Encounter - Renate Lawrence MA - 03/31/2022 2:34 PM EST [facility] pharmacy electronically requests the following refill(s) Requested Prescriptions Pending Prescriptions Disp Refills DULoxetine (CYMBALTA) 20 mg capsule [Pharmacy Med Name: DULOXETINE HCL DR 20 MG CAP] 30 capsule 2 Sig: TAKE 1 CAPSULE BY MOUTH ONCE DAILY Renate Lawrence MA documented in this encounterBethesda North Hospital11-07-2022 Miscellaneous Notes* Telephone Encounter - Maria [...] Thanks. Misty Nelson MD documented in this [facility]11-07-2022 Miscellaneous Notes* Telephone Encounter - Maria Eugenia Sheehan LPN - 03/30/2022 11:49 AM EST LVM and sent MyChart regarding Dr. Nelson's directive. documented in this encounterBethesda North Hospital10-26-2022 Instructions* Patient Instructions* Vera Najera MD - 03/18/2022 11:16 AM EDT Referral for sleep study pending Start on Folic acid. RTC in 8 Weeks - labs 1 week before. documented in this encounterBethesda North Hospital10-26-2022 History of Present illness Narrative* Vera Najera MD - 03/18/2022 10:45 AM EDT Images from the original note were not included. NAME: Ariadna Haley CLIN[facility] NO.: [id number] DATE OF SERVICE: March 18, 2022 (Marquis) [...] which included preparing to see the patient, hcik-py-cmpo patient care, completing clinical documentation, performing a medically appropriate examination, counseling and educating the patient/family/caregiver, ordering medications, tests, or p rocedures, and independently interpreting results (not separately reported). Vera Najera MD, CPE Hematology and Oncology Services Provided at: [place], [place] CC: Manuel Ferris MD [address] [facility] [address] documented in this encounterBethesda North Hospital10-18-2022 History of Present illness Narrative* Misty Nelson MD - 03/10/2022 2:14 PM EDT VIRTUAL VISIT PROGRESS NOTE This is a virtual visit using [employer] video visit. 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 Misty Nelson MD documented in this encounterBethesda North Hospital10-17-2022 History of Past illness Narrative* ProblemNoted DateDiagnosed DateResolved DateObesity, Class II, BMI 35-39.910//Obesity (BMI 30-39.9)documented as of this encounter (statuses as of 03/10/2023) [address]17-2022 History of Past illness Narrative* ProblemNoted Date Diagnosed DateResolved DateObesity, Class II, BMI 35-39.910/ Obesity (BMI 30-39.9)documented as of this encounter (statuses as of 03/11/2023) [address]17-2022 History of Past illness Narrative* ProblemNoted Date Diagnosed DateResolved DateObesity, Class II, BMI 35-39.91/ Obesity (BMI 30-39.9)documented as of this encounter (statuses as of 03/19/2023) [address]17-2022 History of Past illness Narrative* ProblemNoted Date Diagnosed DateResolved DateObesity, Class II, BMI 35-39.910/ Obesity (BMI 30-39.9)documented as of this encounter (statuses as of 03/24/2023) [address]17-2022 History of Past illness Narrative* ProblemNoted Date Diagnosed DateResolved DateObesity, Class II, BMI 35-39.910/ Obesity (BMI 30-39.9)documented as of this encounter (statuses as of 04/16/2023) [address]17-2022 History of Past illness Narrative* ProblemNoted Date Diagnosed DateResolved DateObesity, Class II, BMI 35-39.910/ Obesity (BMI 30-39.9)documented as of this encounter (statuses as of 04/23/2023) [address]17-2022 History of Past illness Narrative* ProblemNoted Date Diagnosed DateResolved DateObesity, Class II, BMI 35-39.910// Obesity (BMI 30-39.9)documented as of this encounter (statuses as of 04/27/2023) [address]17-2022 History of Past illness Narrative* ProblemNoted Date Diagnosed DateResolved DateObesity, Class II, BMI 35-39.910/ Obesity (BMI 30-39.9)documented as of this encounter (statuses as of 04/27/2023) [address]17-2022 History of Past illness Narrative* ProblemNoted Date Diagnosed DateResolved DateObesity, Class II, BMI 35-39.910/ Obesity (BMI 30-39.9)documented as of this encounter (statuses as of 05/31/2023) [address]17-2022 History of Past illness Narrative* ProblemNoted Date Diagnosed DateResolved DateObesity, Class II, BMI 35-39.910/ Obesity (BMI 30-39.9)documented as of this encounter (statuses as of 07/13/2023) [address]17-2022 History of Past illness Narrative* ProblemNoted Date Diagnosed DateResolved DateObesity, Class II, BMI 35-39.910// Obesity (BMI 30-39.9)documented as of this encounter (statuses as of 07/13/2023) [address]17-[address]22 History of Past illness Narrative* ProblemNoted Date Diagnosed DateResolved DateObesity, Class II, BMI 35-39.910/ Obesity (BMI 30-39.9)documented as of this encounter (statuses as of 08/05/2023) [address]17-2022 History of Past illness Narrative* ProblemNoted Date Diagnosed DateResolved DateObesity, Class II, BMI 35-39.910// Obesity (BMI 30-39.9)documented as of this encounter (statuses as of 08/12/2023) [facility] History of Past illness Narrative* ProblemNoted Date Diagnosed DateResolved DateObesity, Class II, BMI 35-39.910// Obesity (BMI 30-39.9)documented as of this encounter (statuses as of 09/01/2023) [facility] History of Past illness Narrative* ProblemNoted Date Diagnosed DateResolved DateObesity, Class II, BMI 35-39.910// Obesity (BMI 30-39.9)documented as of this encounter (statuses as of 09/06/2023) [facility] History of Past illness Narrative* ProblemNoted Date Diagnosed DateResolved DateObesity, Class II, BMI 35-39.910// Obesity (BMI 30-39.9)documented as of this encounter (statuses as of 09/11/2023) [facility]10-17-2022 Instructions* Patient Instructions* Christie Phan MD - 03/09/2022 12:47 PM EDT Check EKG for prolonged QT. If normal, I would try going back on the Lexapro, can recheck an EKG inabout a month to make sure that things are going ok. (I'm leaving this, but we are changing to Cymbalta) Tilt Table Test [email or web address] documented in this encounterBethesda North Hospital10-17-2022 History of Present illness Narrative* Christie Phan MD - 03/09/2022 12:08 PM EDT Images from the original note were not included. 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 documented in this encounterBethesda North Hospital10-14-2022 Miscellaneous Notes* Telephone Encounter - Krista [...] accordingly. Lynne Ni MD documented in this encounterBethesda North Hospital10-12-2022 Instructions* Patient Instructions* Vera Najera MD - 03/04/2022 11:42 AM EDT Labs today. Referral for sleep study. RTC in 2 weeks. Consider immunology referral. Referral to lifestyle medicine documented in this encounterBethesda North Hospital10-12-2022 History of Present illness Narrative* Vera Najera MD - 03/04/2022 11:19 AM EDT Images from the original note were not included. NAME: Ariadna Haley [facility] NO.: [id number] DATE OF SERVICE: March 04, 2022 Referring [...] which included preparing to see the patient, mdac-wc-kdhl patient care, completing clinical documentation, obtaining and/or reviewing separately obtained history, performing a medically appropriate examination, counseling and educating the pat ient/family/caregiver, ordering medications, tests, or procedures, and independently interpreting results (not separately reported). Vera Najera MD, CPE Hematology and Oncology Services Provided at: [place], [place] CC: Manuel Ferris MD [address] [facility] [address] Manuel Ferris MD, MD [address] [facility] [address] documented in this encounterBethesda North Hospital2022 History of Present illness Narrative* Alhaji Victoria, DO - 02/24/2022 6:00 PM EDT VIRTUAL VISIT PROGRESS NOTE This is a virtual visit using [employer] video visit. 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 Her remarketing rep is Dr. Ni. Dr. Ni and I talked regardingpatient's clinical symptoms. It was her thought that in addition to lupus there may be a fibromyalgia -type component to her symptoms. It was also her conclusion along with mind that we do not think CMV is contributing to her various physical complaints that encompassed burning in her back joint pains and lower leg muscle aches. Nov,Tachycardia (ICD-10 - R00.0) Nov,Flushing (ICD-10 - R23.2) [facility] Other 06-03-2022 Nurse Note* Lynne Ni MD - 10/24/2021 8:32 AM EDT See progress note documented in this encounterBethesda North Hospital06-03-2022 History of Present illness Narrative* Lynne [...] Due for eye exam. Labs sent to [facility]/completed in 06/2021 (no results faxed to office, but patient pulled up results on her phone). Chronic current pain in neck, flank area, mid back, knees, legs, arms, all over pain. Better with lyrica 75mg 3times a day. Reports pain -12/31. Couple hrs AM stiffness. COVID vaccine [employer] 09/28/20, 10/19/20, 05/26/21. Feels safe at home. [...] Date(s) Administered COVID-19 vaccine, age 12+ yr ([employer] - PURPLE TOP) 09/28/2020 10/19/2020 Pneumovax no [...] Diagnostic tests reviewed for today's visit: Outside [place] 06/2021 low vitamin D 16, vitamin b12-307;high [...] Due for eye exam. Labs sent to [facility]/completed in 06/2021 (no results faxed to office, [...] (200mg) daily with a meal Please see application integrator every 6-12months while on Hydroxychloroquine. Recommend goal: [...] touching your toes, sit-ups, using row machine rn long term care pain recommendations per primary [...] video & audio (virtual) or phone or kqdt-ry-upne patient care, completing clinical documentation, obtaining and/or [...] referring physician/Primary care physician : Dear Gay De La Torre CNP: I had the pleasure of seeing [...] consult by letter/electronic shared medical records. cc Gya De La Torre CNP Answers for HPI/ROS submitted by the [...] body? 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 With [...] my health Strongly Agree documented in this encounterBethesda North Hospital06-03-2022 Instructions* Patient Instructions* Lynne Ni MD [...] (200mg) daily with a meal Please see application integrator every 6-12months while on Hydroxychloroquine. Recommend goal: [...] touching your toes, sit-ups, using row machine rn long term care pain recommendations per primary care provider/pain clinic Thank you. documented in this encounterBethesda North Hospital05-25-2022 Evaluation note* Encounter Date Diagnosis Assessment Notes Treatment Notes Treatment Clinical Notes September, Elevated sed rate (ICD-10 - R70. 0) Patient has had quite an extensive work-up [...] worth checking given lack of other etiologies. 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 September,Tachycardia (ICD-10 - R00.0) September,Flushing (ICD-10 - R23.2) [facility] Other 04-28-2022 Evaluation note* Encounter Date Diagnosis Assessment Notes Treatment Notes Treatment Clinical Notes Aug, Elevated sed rate (ICD-10 - R70. 0) [facility] Other 04-21-2022 Evaluation note* Encounter Date Diagnosis Assessment Notes Treatment Notes Treatment Clinical Notes Aug, Cytomegalovirus infe ction, unspecified cytomegaloviral infection type (ICD-10 - B25.9) [...] the hydroxychloroquine without any significant lupus diagnosis Rachel defer that to her remarketing rep. [facility] Other 05-17-2021 Hospital Discharge instructions* Instructions* Leforce, So S, RN - 10/07/2020 DISCHARGE INSTRUCTIONS / ARM [...] be sent through Care Everywhere. * amlodipine (New Zealander) * nitroglycerin (oral/sublingual) ([place] Zealander) documented in this encounterCleveland Clinic [facility] Hospitalhyaqu Phone: [phone]) 769-176905-17-2021 History of Present illness Narrative* So Carlisle [...] be completed. documented in this encounterCleveland Clinic [facility] Hospitalhyaqu Phone: [phone]) 393-216301-08-2015 History of Past illness Narrative* Problem Noted DateResolved DateObesity (BMI 30-39.9)documented as of this encounter (statuses as of 10/24/2021) [facility] of Past illness Narrative* ProblemNoted Date Resolved DateObesity (BMI 30-39.9)documented as of this encounter (statuses as of 02/25/2022) [facility] History of Past illness Narrative* ProblemNoted Date Resolved DateObesity (BMI 30-39.9)documented as of this encounter (statuses as of 03/02/2022) [facility] History of Past illness Narrative* ProblemNoted Date Resolved DateObesity (BMI 30-39.9)documented as of this encounter (statuses as of 03/04/2022) [facility] History of Past illness Narrative* ProblemNoted Date Resolved DateObesity (BMI 30-39.9)documented as of this encounter (statuses as of 03/05/2022) [facility] History of Past illness Narrative* ProblemNoted Date Resolved DateObesity (BMI 30-39.9)documented as of this encounter (statuses as of 03/06/2022) [facility] History of Past illness Narrative* ProblemNoted Date Resolved DateObesity (BMI 30-39.9)documented as of this encounter (statuses as of 03/09/2022) [facility] History of Past illness Narrative* ProblemNoted Date Resolved DateObesity (BMI 30-39.9)documented as of this encounter (statuses as of 03/10/2022) [facility] History of Past illness Narrative* ProblemNoted Date Resolved DateObesity (BMI 30-39.9)documented as of this encounter (statuses as of 03/10/2022) [facility] History of Past illness Narrative* ProblemNoted Date Resolved DateObesity (BMI 30-39.9)documented as of this encounter (statuses as of 03/12/2022) [facility] History of Past illness Narrative* ProblemNoted Date Resolved DateObesity (BMI 30-39.9)documented as of this encounter (statuses as of 03/18/2022) [facility] History of Past illness Narrative* ProblemNoted Date Resolved DateObesity (BMI 30-39.9)documented as of this encounter (statuses as of 03/22/2022) [facility] History of Past illness Narrative* ProblemNoted Date Resolved DateObesity (BMI 30-39.9)documented as of this encounter (statuses as of 03/30/2022) [facility] History of Past illness Narrative* ProblemNoted Date Resolved DateObesity (BMI 30-39.9)documented as of this encounter (statuses as of 03/30/2022) [facility] History of Past illness Narrative* ProblemNoted Date Resolved DateObesity (BMI 30-39.9)documented as of this encounter (statuses as of 04/03/2022) [facility] History of Past illness Narrative* ProblemNoted Date Resolved DateObesity (BMI 30-39.9)documented as of this encounter (statuses as of 04/03/2022) [facility] History of Past illness Narrative* ProblemNoted Date Resolved DateObesity (BMI 30-39.9)documented as of this encounter (statuses as of 04/22/2022) [facility] History of Past illness Narrative* ProblemNoted Date Resolved DateObesity (BMI 30-39.9)documented as of this encounter (statuses as of 04/24/2022) [facility] History of Past illness Narrative* ProblemNoted Date Resolved DateObesity (BMI 30-39.9)documented as of this encounter (statuses as of 05/05/2022) [facility] History of Past illness Narrative* ProblemNoted Date Resolved DateObesity (BMI 30-39.9)documented as of this encounter (statuses as of 05/05/2022) [facility] History of Past illness Narrative* ProblemNoted Date Resolved DateObesity (BMI 30-39.9)documented as of this encounter (statuses as of 05/05/2022) [address]08-2015 History of Past illness Narrative* ProblemNoted Date Resolved DateObesity (BMI 30-39.9)documented as of this encounter (statuses as of 05/26/2022) [facility] History of Past illness Narrative* ProblemNoted Date Resolved DateObesity (BMI 30-39.9)documented as of this encounter (statuses as of 05/27/2022) [facility] History of Past illness Narrative* ProblemNoted Date Resolved DateObesity (BMI 30-39.9)documented as of this encounter (statuses as of 07/22/2022) [address]08-2015 History of Past illness Narrative* ProblemNoted Date Resolved DateObesity (BMI 30-39.9)documented as of this encounter (statuses as of 07/25/2022) [facility] History of Past illness Narrative* ProblemNoted Date Resolved DateObesity (BMI 30-39.9)documented as of this encounter (statuses as of 07/27/2022) [address]08-2015 History of Past illness Narrative* ProblemNoted Date Resolved DateObesity (BMI 30-39.9)documented as of this encounter (statuses as of 07/28/2022) [facility] History of Past illness Narrative* ProblemNoted Date Resolved DateObesity (BMI 30-39.9)documented as of this encounter (statuses as of 08/10/2022) [facility] History of Past illness Narrative* ProblemNoted Date Resolved DateObesity (BMI 30-39.9)documented as of this encounter (statuses as of 08/18/2022) [facility] History of Past illness Narrative* ProblemNoted Date Resolved DateObesity (BMI 30-39.9)documented as of this encounter (statuses as of 08/19/2022) [facility] History of Past illness Narrative* ProblemNoted Date Resolved DateObesity (BMI 30-39.9)documented as of this encounter (statuses as of 08/27/2022) [facility] History of Past illness Narrative* ProblemNoted Date Resolved DateObesity (BMI 30-39.9)documented as of this encounter (statuses as of 08/29/2022) [facility] History of Past illness Narrative* ProblemNoted Date Resolved DateObesity (BMI 30-39.9)documented as of this encounter (statuses as of 08/31/2022) [facility] History of Past illness Narrative* ProblemNoted Date Resolved DateObesity (BMI 30-39.9)documented as of this encounter (statuses as of 09/08/2022) [facility] History of Past illness Narrative* ProblemNoted Date Resolved DateObesity (BMI 30-39.9)documented as of this encounter (statuses as of 09/08/2022) [facility] History of Past illness Narrative* ProblemNoted Date Resolved DateObesity (BMI 30-39.9)documented as of this encounter (statuses as of 09/24/2022) [facility] History of Past illness Narrative* ProblemNoted Date Resolved DateObesity (BMI 30-39.9)documented as of this encounter (statuses as of 10/22/2022) [facility] History of Past illness Narrative* ProblemNoted Date Resolved DateObesity (BMI 30-39.9)documented as of this encounter (statuses as of 10/25/2022) [facility] History of Past illness Narrative* ProblemNoted Date Resolved DateObesity (BMI 30-39.9)documented as of this encounter (statuses as of 11/19/2022) [facility] History of Past illness Narrative* ProblemNoted Date Resolved DateObesity (BMI 30-39.9)documented as of this encounter (statuses as of 11/25/2022) [facility] History of Past illness Narrative* ProblemNoted Date Diagnosed DateResolved DateObesity (BMI 30-39.9)documented as of this encounter (statuses as of 12/08/2022) [facility] History of Past illness Narrative* ProblemNoted Date Diagnosed DateResolved DateObesity (BMI 30-39.9)documented as of this encounter (statuses as of 12/18/2022) [facility] History of Past illness Narrative* ProblemNoted Date Diagnosed DateResolved DateObesity (BMI 30-39.9)documented as of this encounter (statuses as of 12/18/2022) [facility] History of Past illness Narrative* ProblemNoted Date Diagnosed DateResolved DateObesity (BMI 30-39.9)documented as of this encounter (statuses as of 12/21/2022) [facility] History of Past illness Narrative* ProblemNoted Date Diagnosed DateResolved DateObesity (BMI 30-39.9)documented as of this encounter (statuses as of 12/22/2022) [facility] History of Past illness Narrative* ProblemNoted Date Diagnosed DateResolved DateObesity (BMI 30-39.9)documented as of this encounter (statuses as of 01/02/2023) [facility] History of Past illness Narrative* ProblemNoted Date Diagnosed DateResolved DateObesity (BMI 30-39.9)documented as of this encounter (statuses as of 01/13/2023) [facility] History of Past illness Narrative* ProblemNoted Date Diagnosed DateResolved DateObesity (BMI 30-39.9)documented as of this encounter (statuses as of 01/22/2023) [facility] History of Past illness Narrative* ProblemNoted Date Diagnosed DateResolved DateObesity (BMI 30-39.9)documented as of this encounter (statuses as of 01/26/2023) [facility] History of Past illness Narrative* ProblemNoted Date Diagnosed DateResolved DateObesity (BMI 30-39.9)documented as of this encounter (statuses as of 02/04/2023) [facility] History of Past illness Narrative* ProblemNoted Date Diagnosed DateResolved DateObesity (BMI 30-39.9)documented as of this encounter (statuses as of 02/04/2023) [facility] History of Past illness Narrative* ProblemNoted Date Diagnosed DateResolved DateObesity (BMI 30-39.9)documented as of this encounter (statuses as of 02/07/2023) [facility] History of Past illness Narrative* ProblemNoted Date Diagnosed DateResolved DateObesity (BMI 30-39.9)documented as of this encounter (statuses as of 02/08/2023) [facility] History of Past illness Narrative* ProblemNoted Date Diagnosed DateResolved DateObesity (BMI 30-39.9)documented as of this encounter (statuses as of 02/16/2023) [facility] History of Past illness Narrative* ProblemNoted Date Diagnosed DateResolved DateObesity (BMI 30-39.9)documented as of this encounter (statuses as of 02/19/2023) [facility] History of Past illness Narrative* ProblemNoted Date Diagnosed DateResolved DateObesity (BMI 30-39.9)documented as of this encounter (statuses as of 02/21/2023) [facility] History of Past illness Narrative* ProblemNoted Date Diagnosed DateResolved DateObesity (BMI 30-39.9)documented as of this encounter (statuses as of 03/02/2023) [facility] Other systemic lupus erythematosus [...] and myositis, unspecified [facility] [place] [facility] Diagnosis Swelling of lymph nodes- Primary Enlargement of lymph nodes Other systemic lupus erythematosus with other organ involvement (HCC) On prednisone therapy Hair loss Alopecia, unspecified Bilateral sacroiliitis (HCC) Long-term use of Plaquenil Encounter for long-term (current) use of other medications [facility] Vitamin B12 deficiency- Primary Other B-complex deficiencies Vitamin D deficiency Unspecified vitamin D deficiency Elevated sed rate Elevated sedimentation rate Elevated C-reactive protein (CRP) [facility] [place] [facility] Diagnosis 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 Other vitamin B12 deficiency anemia Somnolence, daytime Hypersomnia, unspecified Snoring Other dyspnea and respiratory abnormality Chronic fatigue and malaise Chronic fatigue syndrome Obesity, unspecified classification, unspecified obesity type, unspecified whether serious comorbidity present [facility] [place] [facility] Diagnosis Obesity, Class [...] nonspecific immunological findings [facility] [place] [facility] Diagnosis Megaloblastic anemia due to vitamin B12 deficiency- Primary Other vitamin B12 deficiency anemia High total serum IgM [facility] [place] [facility] Diagnosis Raised level of immunoglobulins- Primary Other and unspecified nonspecific immunological findings Wound healing, delayed Open wound(s) (multiple) of unspecified site(s), complicated Current smoker Tobacco use disorder [facility] [place] [facility] Diagnosis Family history of genetic disease- Primary Family history of other condition [facility] [place] [facility] Diagnosis High total [...] [facility] JOSE RAFAEL (obstructive sleep apnea)- Primary Obstructive sleep apnea (adult) (pediatric) [facility] [place] [facility] Diagnosis Other systemic lupus erythematosus with other organ involvement (HCC)- Primary Family history of Crohn's disease Family history of other digestive disorders Fibromyalgia Mylagia and myositis, unspecified [facility] Diagnosis Other systemic lupus erythematosus with other organ involvement (HCC)- Primary Elevated LFTs Other abnormal blood chemistry Anemia of chronic disease Anemia of other chronic disease Encounter for 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 of azathioprine Encounter for long-term (current) use of other medications [facility] Diagnosis Megaloblastic anemia due to vitamin B12 deficiency- Primary Other vitamin B12 deficiency anemia Elevated sed rate Elevated sedimentation rate [facility] [place] [facility] Diagnosis Megaloblastic anemia due to vitamin B12 deficiency- Primary Other vitamin B12 deficiency anemia Elevated sed rate Elevated sedimentation rate High total serum IgM Chronic fatigue and malaise Chronic fatigue syndrome JOSE RAFAEL (obstructive sleep apnea) Obstructive sleep apnea (adult) (pediatric) [facility] Vitamin D deficiency Unspecified vitamin D deficiency [facility] Diagnosis Obesity, Class III, BMI >= 40- Primary Morbid obesity Polypharmacy Encounter for long-term (current) use of other medications Pre-diabetes Other abnormal glucose [facility] Diagnosis Megaloblastic anemia due to vitamin B12 deficiency- Primary Other vitamin B12 deficiency anemia Elevated sed rate Elevated sedimentation rate [facility] [place] [facility] Diagnosis Megaloblastic anemia due to vitamin B12 deficiency- Primary Other vitamin B12 deficiency anemia Elevated sed rate Elevated sedimentation rate [facility] Diagnosis Megaloblastic anemia due to vitamin B12 deficiency- Primary Other vitamin B12 deficiency anemia Elevated sed rate Elevated sedimentation rate High total serum IgM Chronic fatigue and malaise Chronic fatigue syndrome Obstructive sleep apnea syndrome Obstructive sleep apnea (adult) (pediatric) [facility] [place] [facility] Diagnosis Megaloblastic anemia due to vitamin B12 deficiency- Primary Other vitamin B12 deficiency anemia Elevated sed rate Elevated sedimentation rate [facility] [place] [facility] Diagnosis Other systemic lupus erythematosus with other organ involvement (HCC) Encounter for 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 of azathioprine Encounter for long-term (current) use of other medications [facility] [place] [facility] Diagnosis Megaloblastic anemia due to vitamin B12 deficiency- Primary Other vitamin B12 deficiency anemia Chronic fatigue and malaise Chronic fatigue syndrome [facility] [place] [facility] Diagnosis High total serum IgM- Primary Low serum IgG for age Current smoker Tobacco use disorder [facility] [place] [facility] Diagnosis Obesity, Class II, BMI 35-39.9 Obesity, unspecified Prediabetes Other abnormal glucose [facility] [place] [facility] Diagnosis Megaloblastic anemia due to vitamin B12 deficiency- Primary Other vitamin B12 deficiency anemia Elevated sed rate Elevated sedimentation rate [facility] [place] [facility] Diagnosis Other systemic lupus erythematosus with other organ involvement (HCC)- Primary Vitamin D deficiency Unspecified vitamin D deficiency Elevated LFTs Other abnormal blood chemistry Anemia of chronic disease Anemia of other chronic disease Elevated sed rate Elevated sedimentation rate Elevated C-reactive protein (CRP) [facility] [place] [facility] Diagnosis Other systemic [...] wrist pain 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, 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 Encounter for long-term (current) use of steroids Steroid-induced osteoporosis Other osteoporosis 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 [facility] Diagnosis Systemic lupus erythematosus with other organ involvement (HCC)- Primary [facility] [place] [facility] Diagnosis Megaloblastic anemia due to vitamin B12 deficiency- Primary Other vitamin B12 deficiency anemia High total serum IgM Elevated sed rate Elevated sedimentation rate [facility] [place] [facility] Diagnosis Other systemic lupus erythematosus with other organ involvement (HCC)- Primary [facility] [place] [facility] Diagnosis Other systemic lupus erythematosus with other organ involvement (HCC) Encounter for 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 of azathioprine Encounter for long-term (current) use of other medications [facility] [place] [facility] Diagnosis Megaloblastic anemia due to vitamin B12 deficiency- Primary Other vitamin B12 deficiency anemia Elevated sed rate Elevated sedimentation rate [facility] [place] [facility] Diagnosis Megaloblastic anemia due to vitamin B12 deficiency- Primary Other vitamin B12 deficiency anemia Elevated sed rate Elevated sedimentation rate Chronic fatigue and malaise Chronic fatigue syndrome High total serum IgM JOSE RAFAEL (obstructive sleep apnea) Obstructive sleep apnea (adult) (pediatric) [facility] [place] [facility] Diagnosis Insulin resistance, unspecified- Primary Depression, recurrent (HCC) Major depressive disorder, recurrent episode, unspecified Chronic pain syndrome [facility] [place] [facility] Diagnosis Systemic lupus erythematosus, unspecified SLE type, unspecified organ involvement status (HCC)- Primary [facility] Diagnosis Megaloblastic anemia due to vitamin B12 deficiency- Primary Other vitamin B12 deficiency anemia Elevated sed rate Elevated sedimentation rate [facility] [place] [facility] Diagnosis Megaloblastic anemia due to vitamin B12 deficiency- Primary Other vitamin B12 deficiency anemia Elevated sed rate Elevated sedimentation rate [facility] [place] [facility]* Diagnosis Obesity, Class III, BMI >= 40- Primary Morbid obesity FUO (fever of unknown origin) Fever, unspecified Other chronic pain [facility] [place] [facility] Diagnosis Obesity, Class III, BMI >= 40 Morbid obesity [facility] Diagnosis Obesity, Class III, BMI >= 40- Primary Morbid obesity Other chronic pain [facility] [place] [facility] Diagnosis Irregular heart rate- Primary Essential hypertension Unspecified essential hypertension Autonomic dysfunction Obstructive sleep apnea syndrome Obstructive sleep apnea (adult) (pediatric) Primary hypertension Unspecified essential hypertension documented in this encounter [facility] Work Phone: Evaluation note* Diagnosis Autoimmune disease (CMS/HCC)- Primary Autoimmune disease, not elsewhere classified Autonomic dysfunction Lumbosacral radiculopathy Thoracic or lumbosacral neuritis or radiculitis, unspecified Bilateral leg weakness Muscle weakness (generalized) [facility] Shortness of breath- Primary Paroxysmal supraventricular tachycardia PAC (premature atrial contraction) Supraventricular premature beats Current smoker Systemic lupus erythematosus, unspecified SLE type, unspecified organ involvement status (CMS/HCC) Palpitations Obstructive sleep apnea syndrome Obstructive sleep apnea (adult) (pediatric) Morbid obesity (CMS/HCC) Morbid obesity Bilateral lower extremity edema documented in this encounter [facility] Work Phone: Evaluation note* Diagnosis Megaloblastic anemia due to vitamin B12 deficiency- Primary Other vitamin B12 deficiency anemia Elevated sed rate Elevated sedimentation rate [facility] [place] [facility] Diagnosis Systemic lupus erythematosus with other organ involvement (HCC)- Primary [facility] [place] [facility] Diagnosis Systemic lupus erythematosus with other organ involvement (HCC)- Primary [facility] [place] [facility]* Diagnosis Megaloblastic anemia due to vitamin B12 deficiency- Primary Other vitamin B12 deficiency anemia Elevated sed rate Elevated sedimentation rate [facility] [place] [facility] Diagnosis Other systemic lupus erythematosus with other organ involvement (HCC)- Primary Vitamin D deficiency Unspecified vitamin D deficiency Elevated LFTs Other abnormal blood chemistry Anemia of chronic disease Anemia of other chronic disease Elevated sed rate Elevated sedimentation rate Elevated C-reactive protein (CRP) [facility] [place] [facility] Diagnosis Megaloblastic anemia [...] of nutritional deficiency [facility] Diagnosis Elevated sed rate- Primary [...] for pulmonary tuberculosis [facility] [place] [facility] Diagnosis Other systemic lupus erythematosus with other organ involvement (HCC) [facility] [place] [facility] Diagnosis Systemic lupus erythematosus with other organ involvement (HCC)- Primary [facility] [place] [facility] Diagnosis Elevated sed rate- Primary Elevated sedimentation rate Megaloblastic anemia due to vitamin B12 deficiency Other vitamin B12 deficiency anemia [facility] [place] [facility] Diagnosis Pseudomonas infection- Primary Pseudomonas infection in conditions classified elsewhere and of unspecified site Other systemic lupus erythematosus with other organ involvement (HCC) On prednisone therapy Long-term use of Plaquenil Encounter for long-term (current) use of other medications [facility] Diagnosis Onset Date Resolution Status Lupus acuteRecurrent Clostridioides difficile diarrheaacuteNipple discharge in female acuteRecurrent Clostridioides difficile diarrheaacuteLumbosacral spondylosis acuteOther chronic painacuteSacroiliitisacute [facility] Work Phone: Evaluation note* Diagnosis JOSE RAFAEL (obstructive sleep apnea)- Primary Obstructive sleep apnea (adult) (pediatric) Somnolence, daytime Hypersomnia, unspecified [facility] [place] [facility]* Diagnosis Systemic lupus erythematosus with other organ involvement (HCC)- Primary [facility] [place] [facility]* Diagnosis Systemic lupus erythematosus with other organ involvement (HCC)- Primary [facility] [place] [facility]* Diagnosis Onset Date Resolution Status Nipple discharge in female acuteRecurrent Clostridioides difficile diarrheaacuteLumbosacral spondylosis acuteOther chronic painacuteSacroiliitisacute [facility] Work Phone: Evaluation note* Diagnosis Elevated sed rate- Primary Elevated sedimentation rate Megaloblastic anemia due to vitamin B12 deficiency Other vitamin B12 deficiency anemia [facility] [place] [facility]* Diagnosis Onset Date Resolution Status Nipple discharge in female acuteRecurrent Clostridioides difficile diarrheaacuteLumbosacral spondylosis acuteOther chronic painacuteSacroiliitisacuteLumbosacral spondylosisacuteOther chronic painacuteSacroiliitisacute [facility] Work Phone: Evaluation note* Diagnosis Lumbosacral radiculopathy at L5 Degenerative disc disease, lumbar Cervical radiculopathy at C5 documented in this encounter [facility]* Diagnosis Onset Date Resolution Status Lumbosacral spondylosis acuteOther chronic painacuteSacroiliitisacuteLumbosacral spondylosisacuteOther [facility]acute[facility] Work Phone: Evaluation note* Diagnosis Other systemic lupus erythematosus with other organ involvement (HCC) [facility] Diagnosis Other systemic lupus erythematosus [...] both feet Long-term use of high-risk medication USP current use of systemic steroids Encounter for long-term (current) use of steroids Bilateral hand pain Pain in limb Systemic lupus erythematosus, unspecified SLE type, unspecified organ involvement status (HCC) Vitamin B12 deficiency Other B-complex deficiencies Discoid lupus erythematosus Lupus erythematosus [facility] Diagnosis Nipple discharge Other sign and symptom in breast [facility] Elevated sed rate- Primary Elevated sedimentation rate Megaloblastic anemia due to vitamin B12 deficiency Other vitamin B12 deficiency anemia [facility] Diagnosis Abnormal uterine bleeding (AUB) Menorrhagia with regular cycle documented in this encounter [facility] HealthcareEvaluation note* Diagnosis Megaloblastic anemia due to vitamin B12 deficiency- Primary Other vitamin B12 deficiency anemia High total serum IgM JOSE RAFAEL (obstructive sleep apnea) Obstructive sleep apnea (adult) (pediatric) Elevated sed rate Elevated sedimentation rate Hypogammaglobulinemia (HCC) Hypogammaglobulinaemia, unspecified Frequent infections [facility] [place] [facility]* Diagnosis Oral thrush- Primary Candidiasis of mouth documented in this encounter [facility]Evaluation note* Diagnosis Oral thrush- Primary Candidiasis of mouth documented in this encounter [facility]Evaluation note* Diagnosis Systemic lupus erythematosus with other organ involvement ([facility])- Primary [facility] [place] [facility]* Diagnosis LPRD (laryngopharyngeal reflux disease)- Primary Acute laryngitis, without mention of obstruction Acute otalgia, right documented in this encounter [facility] HealthcareEvaluation note* Diagnosis Autoimmune disease ([facility]) Autoimmune disease, not elsewhere classified Fibromyalgia Unspecified myalgia and myositis Numbness Disturbance of skin sensation documented in this encounter [facility]Evaluation note* Diagnosis Lumbosacral radiculopathy at L5- Primary Degenerative disc disease, lumbar Cervical radiculopathy at C5 documented in this encounter [facility] note* Diagnosis Degenerative disc disease, lumbar- Primary Lumbosacral radiculopathy at L5 documented in this encounter [facility]Evaluation note* Diagnosis Frequent infections- Primary Megaloblastic anemia due to vitamin B12 deficiency Other vitamin B12 deficiency anemia Elevated sed rate Elevated sedimentation rate Hypogammaglobulinemia (HCC) Hypogammaglobulinaemia, unspecified Bilateral leg weakness Other musculoskeletal symptoms referable to limbs Discoid lupus erythematosus Lupus erythematosus [facility] [place] [facility]* Diagnosis Well woman exam with routine gynecological exam Routine gynecological examination Breast cancer screening by mammogram Breast nodule Other (abnormal) findings on radiological examination of breast [facility] Diagnosis Megaloblastic anemia due to vitamin B12 deficiency- Primary Other vitamin B12 deficiency anemia Hypogammaglobulinemia (HCC) Hypogammaglobulinaemia, unspecified Positive blood cultures Bacteremia Malaise and fatigue Other malaise and fatigue SOB (shortness of breath) Shortness of breath [facility] Diagnosis Elevated sed rate- Primary Elevated sedimentation rate Megaloblastic anemia due to vitamin B12 deficiency Other vitamin B12 deficiency anemia Hypogammaglobulinemia (HCC) Hypogammaglobulinaemia, unspecified Frequent infections Bilateral leg weakness Other musculoskeletal symptoms referable to limbs Discoid lupus erythematosus Lupus erythematosus [facility] Diagnosis Diarrhea, unspecified type- Primary Abdominal pressure Abdominal pain, unspecified site [facility] [place] [facility]* Diagnosis Other iron deficiency anemia- Primary [facility]* Diagnosis Other systemic lupus erythematosus with other organ involvement (HCC) [facility] Diagnosis Systemic lupus erythematosus with other organ involvement (HCC)- Primary [facility] [place] [facility]* Diagnosis Systemic lupus erythematosus (CMS-HCC)- Primary Cold extremities Pain of lower extremity, unspecified laterality Rheumatoid arthritis, involving unspecified site, unspecified whether rheumatoid factor present (CMS-HCC) Current smoker 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 [facility] Diagnosis Systemic lupus erythematosus (CMS-HCC)- Primary Cold extremities Pain of lower extremity, unspecified laterality Rheumatoid arthritis, involving unspecified site, unspecified whether rheumatoid factor present (CMS-HCC) Current smoker 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 Peripheral vascular disease, unspecified (CMS-HCC)- Primary Peripheral vascular disease, unspecified Cold extremities Systemic lupus erythematosus (CMS-HCC) documented [facility]* Diagnosis Other systemic lupus erythematosus with other organ involvement (HCC)- Primary Vitamin D deficiency Unspecified vitamin D deficiency Elevated LFTs Other abnormal blood chemistry Anemia of chronic disease Anemia of other chronic disease Elevated sed rate Elevated sedimentation rate Elevated C-reactive protein (CRP) documented [facility] [place] [facility]* Diagnosis Onset Date Resolution Status Admit Date Lumbosacral spondylosis acuteFebruary 2024 3:16pmOther chronic painacuteFebruary 2024 3:16pm SacroiliitisacuteFebruary 2024 3:16pm [facility] Work Phone: Evaluation note* Diagnosis Elevated sed rate- Primary Elevated sedimentation rate Megaloblastic anemia due to vitamin B12 deficiency Other vitamin B12 deficiency anemia Frequent infections Hypogammaglobulinemia (HCC) Hypogammaglobulinaemia, unspecified Bilateral leg weakness Other musculoskeletal symptoms referable to limbs Discoid lupus erythematosus Lupus erythematosus documented [facility] [place] [facility]* Diagnosis LPRD (laryngopharyngeal reflux disease) Other diseases of larynx Dry mouth Disturbance of salivary secretion Current smoker Tobacco use disorder Abnormal mouth sensation Other and unspecified diseases of the oral soft tissues [facility] [place] [facility]* Diagnosis Nipple discharge- Primary Other sign and symptom in breast Other systemic lupus erythematosus with other organ involvement (HCC) On prednisone therapy Long-term use of Plaquenil Encounter for long-term (current) use of other medications [facility] Hidradenitis suppurativa- Primary Hidradenitis Other seborrheic dermatitis Lupus erythematosus tumidus (CMS/HCC) Rash and other nonspecific skin eruption Capillary angioma Nevus, non-neoplastic Neoplasm of uncertain behavior of skin documented in this encounter [facility] HealthcareEvaluation note* Diagnosis Sinus tachycardia- Primary Other specified cardiac dysrhythmias Shortness of breath Paroxysmal supraventricular tachycardia (CMS-HCC) Paroxysmal supraventricular tachycardia Essential hypertension Unspecified essential hypertension Obstructive sleep apnea syndrome Obstructive sleep apnea (adult) (pediatric) Morbid obesity (Multi) Morbid obesity Current smoker documented in this encounter [facility] Work Phone: Evaluation note* Diagnosis Elevated sed rate- Primary Elevated sedimentation rate Megaloblastic anemia due to vitamin B12 deficiency Other vitamin B12 deficiency anemia Frequent infections Hypogammaglobulinemia (HCC) Hypogammaglobulinaemia, unspecified Bilateral leg weakness Other musculoskeletal symptoms referable to limbs Discoid lupus erythematosus Lupus erythematosus [facility] Diagnosis Systemic lupus erythematosus with other organ involvement (HCC)- Primary [facility] Diagnosis Vitamin B12 deficiency- Primary Other B-complex deficiencies Other iron deficiency anemia Hypogammaglobulinemia (HCC) Hypogammaglobulinaemia, unspecified [facility] Diagnosis Other systemic lupus erythematosus with other organ involvement (HCC) [facility] Diagnosis Thyroid nodule (CMS/HCC)- Primary Nontoxic uninodular goiter LPRD (laryngopharyngeal reflux disease) Acute laryngitis, without mention of obstruction documented in this encounter [facility]Evaluation note* Diagnosis Hypogammaglobulinemia (HCC)- Primary Hypogammaglobulinaemia, unspecified Vitamin B12 deficiency Other B-complex deficiencies Other iron deficiency anemia Megaloblastic anemia due to vitamin B12 deficiency Other vitamin B12 deficiency anemia [facility] Diagnosis Frequent infections- Primary Hypogammaglobulinemia (HCC) Hypogammaglobulinaemia, unspecified Bilateral leg weakness Other musculoskeletal symptoms referable to limbs Discoid lupus erythematosus Lupus erythematosus Elevated sed rate Elevated sedimentation rate Megaloblastic anemia due to vitamin B12 deficiency Other vitamin B12 deficiency anemia [facility] Diagnosis Other systemic lupus erythematosus with other organ involvement (HCC)- Primary [facility] [place] [facility]* Diagnosis Other systemic lupus erythematosus with other organ involvement (HCC) documented [facility] [place] [facility]* Diagnosis Systemic lupus erythematosus with other organ involvement (HCC)- Primary [facility] [place] [facility]* Diagnosis Fibromyalgia- Primary Mylagia and myositis, unspecified Family history of disease of aorta Family history of cancer Family history of unspecified malignant neoplasm [facility] [place] [facility]* Diagnosis Frequent infections- Primary Hypogammaglobulinemia (HCC) [...] vitamin D deficiency [facility] [place] [facility]* Diagnosis Other systemic lupus erythematosus with other organ involvement (HCC)- Primary [facility] [place] [facility]* Diagnosis Other systemic [...] vitamin D deficiency [facility] [place] [facility]* Diagnosis Other systemic [...] both feet Long-term use of high-risk medication USP current use of systemic steroids Encounter for long-term (current) use of steroids Bilateral hand pain Pain in limb Family history of Crohn's disease Family history of other digestive disorders 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 Bilateral wrist pain 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, forearm [facility] [place] [facility]* Diagnosis Other systemic lupus erythematosus with other organ involvement (HCC)- Primary [facility] [place] [facility]* Diagnosis Generalized articular hypermobility- Primary Other joint derangement, not elsewhere classified, multiple sites Chronic pain syndrome Discoid lupus erythematosus Lupus erythematosus Family history of pneumothorax in son Family history of other condition Family history of cancer Family history of unspecified malignant neoplasm Family history of mild aortic dilation in daughter Family history of other cardiovascular diseases [facility] [place] [facility]* Diagnosis Elevated sed rate- Primary Elevated sedimentation rate Megaloblastic anemia due to vitamin B12 deficiency Other vitamin B12 deficiency anemia Frequent infections Hypogammaglobulinemia (HCC) Hypogammaglobulinaemia, unspecified Bilateral leg weakness Other musculoskeletal symptoms referable to limbs Discoid lupus erythematosus Lupus erythematosus [facility] [place] [facility]* Diagnosis Other systemic lupus erythematosus with other organ involvement (HCC)- Primary [facility] [place] [facility]* Diagnosis Hypogammaglobulinemia (HCC)- Primary Hypogammaglobulinaemia, unspecified [facility] [place] [facility]* Diagnosis Hidradenitis suppurativa- Primary Hidradenitis Pain Generalized pain Acne vulgaris Other acne [facility] [place] [facility]* Diagnosis Hypogammaglobulinemia (HCC)- Primary Hypogammaglobulinaemia, unspecified Vitamin B12 deficiency Other B-complex deficiencies Other iron deficiency anemia Malaise and fatigue Other malaise and fatigue Shortness of breath Other specified disorders of breast Pre-diabetes Other abnormal glucose Gastro-esophageal reflux disease without esophagitis Esophageal reflux [facility] [place] [facility]* Diagnosis Elevated sed rate- Primary Elevated sedimentation rate Megaloblastic anemia due to vitamin B12 deficiency Other vitamin B12 deficiency anemia Frequent infections Hypogammaglobulinemia (HCC) Hypogammaglobulinaemia, unspecified Bilateral leg weakness Other musculoskeletal symptoms referable to limbs Discoid lupus erythematosus Lupus erythematosus [facility] [place] [facility]* Diagnosis Other systemic lupus erythematosus with other organ involvement (HCC)- Primary [facility] [place] [facility]* Diagnosis Other [...] for pulmonary tuberculosis [facility] Diagnosis Other systemic lupus erythematosus with other organ involvement (HCC)- Primary Elevated LFTs Other abnormal blood chemistry Anemia of chronic disease Anemia of other chronic disease Elevated C-reactive protein (CRP) Elevated sed rate Elevated sedimentation rate Vitamin D deficiency Unspecified vitamin D deficiency [facility] Diagnosis Frequent infections- Primary Hypogammaglobulinemia (HCC) Hypogammaglobulinaemia, unspecified Bilateral leg weakness Other musculoskeletal symptoms referable to limbs Discoid lupus erythematosus Lupus erythematosus Elevated sed rate Elevated sedimentation rate Megaloblastic anemia due to vitamin B12 deficiency Other vitamin B12 deficiency anemia [facility] Diagnosis Pilonidal cyst- Primary Hidradenitis suppurativa Hidradenitis documented in this encounter [facility]* Diagnosis Pilonidal abscess- Primary Pilonidal cyst with abscess Pilonidal cyst documented in this encounter [facility] HealthcareHistory general Narrative - Reported* Type Description Date Medical History hyperlipidemia Medical Historyinsulin resistanceMedical HistoryCMVSurgical Historycyst removal pilonidalSurgical HistoryD&CHospitalization Historypregnancy Apliiq Other Hospital Discharge instructionsAmbulatory Orders* Referral to Gastroenterology Location: None [facility] Work Phone: Hospital Discharge instructions Additional Instructions Dressing changes to sacral region daily: Remove packing, irrigate with saline, repack with saline moistened 2 x 2 gauze and cover with dry dressingBl[facility]ard [facility] Work Phone: InstructionsNot on filedocumented in this encounter [facility] SystemReason for referral (narrative)* Diagnostic Procedure Only (Routine) - Pending ReviewSpecialtyDiagnoses / ProceduresReferred By ContactReferred To ContactXR IMAGING Diagnoses Steroid-induced osteoporosis Procedures DXA-FOREARM SKELETON DXA BONE DENSITY STUDY 1/>SITES APPENDICLR Lynne Perera MD [address] [place] [address] [place] [address] Referral IDStatusReasonStart DateExpiration DateVisits RequestedVisits [id number] Review Auto-Generated Referral / [facility] for referral (narrative)* Consultation (Routine) - AuthorizedSpecialtyDiagnoses / ProceduresReferred By ContactReferred To ContactCardiology Diagnoses Irregular heart rate Essential hypertension Autonomic dysfunction Obstructive sleep apnea syndrome Primary hypertension Procedures Follow Up In Cardiology Michelle Jasmine APRN-[facility] [address] [place] [address] [place] [address] [place] [address] Referral IDStatusReasonStsanta clarita DateExpiration DateVisits RequestedVisits [id number]/17/20241/ * Cardiovascular (Routine) - Pending ReviewSpecialtyDiagnoses / Procedures Referred By ContactReferred To ContactCardiology Diagnoses Irregular heart rate Procedures Holter Or Event Security Manager [facility] [address] [place] [address] Referral IDStatusReasonTurners Falls DateExpiration DateVisits RequestedVisits [id number] Review * CV Imaging (Routine) - Pending ReviewSpecialtyDiagnoses / ProceduresReferred By ContactReferred To ContactCardiology Diagnoses Irregular heart rate Obstructive sleep apnea syndrome Procedures Transthoracic Echo (TTE) Complete [place] ECHO TTHRC R-T 2D W/WOM-MODE COMPL SPEC&COLR D Michelle [facility]asmine [facility] [address] [place] [address] Referral IDStatusReasonStart DateExpiration DateVisits RequestedVisits [id number] Review Perform Procedure * Cardiovascular (Routine) - AuthorizedSpecialtyDiagnoses / ProceduresReferred By ContactReferred To Contact Diagnoses Irregular heart rate Procedures ECG 12 Lead Michelle Jasmine, LEANDER [address] [place] [address] [address] [place] [address] Referral IDStatusReasonStart DateExpiration DateVisits RequestedVisits [id number]/17/20241/16/202511 [facility] Work Phone: Reason for referral (narrative)* Consultation (Routine) - Pending ReviewSpecialtyDiagnoses / ProceduresReferred By Contact Referred To ContactPain Medicine Diagnoses Lumbosacral radiculopathy at L5 Degenerative disc disease, lumbar Procedures [place] OFFICE/OUTPATIENT [facility] 60 MINUTES Kade Early MD [address] [address] Adolfo Kang MD [address] [address] Referral IDStatusReasonStart DateExpiration DateVisits RequestedVisits [id number] Review Specialty Services Required / [facility] HealthcareReason for referral (narrative)No reason for referral information availableBluffton Hospital Work Phone: Reason for visit Narrative* [place] Prior Authorization (Routine) - AuthorizedSpecialtyDiagnoses / ProceduresReferred By Contact Referred To Contact Diagnoses Frequent infections Hypogammaglobulinemia (HCC) Bilateral leg weakness Discoid lupus erythematosus Procedures GAMMAGARD LIQUID INJECTION Vera Najera MD [address] [place] [address] Phone: tel: fax: Hematology/Oncology [address] [place] [address] [place] [address] Phone: tel: fax: Referral IDStatusReasonStart DateExpiration DateVisits RequestedVisits [id number]/11/20245/[id number] [facility] for visit Narrative* [place] Prior Authorization (Routine) - AuthorizedSpecialtyDiagnoses / ProceduresReferred By ContactReferred To Contact Diagnoses Other systemic lupus erythematosus with other organ involvement (HCC) Procedures BELIMUMAB INJECTION Lynne Ni MD [address] [place] [address] Phone: tel: fax: Lynne Ni MD [address] [place] [address] Phone: tel: fax: Referral IDStatusReasonStart DateExpiration DateVisits RequestedVisits [id number]/18/202510/ [facility] for visit Narrative* [place] Prior Authorization (Routine) - AuthorizedSpecialtyDiagnoses / ProceduresReferred By ContactReferred To Contact Diagnoses Other iron deficiency anemia Procedures IRON SUCROSE INJECTION PER 1 MG Vaibhav Carvalho APRN.[employer] [address] [place] [address] Phone: tel: fax: Hematology/Oncology [address] [place] [address] Phone: tel: fax: Referral IDStatusReasonStart DateExpiration DateVisits RequestedVisits [id number]/24/202512/31/20259999 [facility] for visit Narrative* [place] Prior Authorization (Routine) - AuthorizedSpecialtyDiagnoses / ProceduresReferred By ContactReferred To Contact Diagnoses Frequent infections Hypogammaglobulinemia (HCC) Bilateral leg weakness Discoid lupus erythematosus Procedures GAMMAGARD LIQUID INJECTION Vera Najera MD [address] [place] [address] [place] [address] Phone: tel: fax: Hematology/Oncology [address] [place] [address] Phone: tel: fax: Referral IDStatusReasonStsanta clarita DateExpiration DateVisits RequestedVisits [id number] Patient Cleared - Admin/Cigar Machine Feeder/Director advise to proceed or did not respond [facility] for visit Narrative* [place] Prior Authorization (Routine) - AuthorizedSpecialtyDiagnoses / ProceduresReferred By ContactReferred To Contact Diagnoses Frequent infections Hypogammaglobulinemia (HCC) Bilateral leg weakness Discoid lupus erythematosus Procedures GAMMAGARD LIQUID INJECTION Vera Najera MD [address] [place] [address] [place] [address] Phone: tel: fax: Hematology/Oncology [address] [place] [address] [place] [address] Phone: tel: fax: Referral IDStatusReasonTurn[place] DateExpiration DateVisits RequestedVisits [id number] Patient Cleared - Admin/Cigar Machine Feeder/Director advise to proceed or did not respond [facility] for visit Narrative* [place] Prior Authorization (Routine) - AuthorizedSpecialtyDiagnoses / ProceduresReferred By ContactReferred To Contact Diagnoses Frequent infections Hypogammaglobulinemia (HCC) Bilateral leg weakness Discoid lupus erythematosus Procedures GAMMAGARD LIQUID INJECTION IMMUNE GLOBULIN INJECTION Vera Najera MD [address] [place] [address] Phone: tel: fax: Hematology/Oncology [address] [place] [address] Phone: tel: fax: Referral IDStatusReasonStart DateExpiration DateVisits RequestedVisits [id number] Patient Cleared - Admin/Cigar Machine Feeder/Director advise to proceed or did not respond / [facility] Summary Purpose Family History Relationship Condition Age at Onset Recorded Date/T michelle father Unknown Malignant neoplasmUnknown Relationship Condition Age at Onset Recorded Date/T michelle father Malignant neoplasm of stomach Unknown DeceasedUnknownmotherCrohn's diseaseUnknown Advance Directives TypeDate RecordedPatient RepresentativeExplanationACP-Advance DirectiveACP-Power of AttorneyCode StatusDate ActivatedDate InactivatedCommentsFull Code10/07/2020 8:32 AMTypeDate RecordedPatient RepresentativeExplanationAdvance Directive(s) 09/13/2015 8:36 AM Advance Directive Response Recorded Date/ Time Advance Directives No September 17, 2:40pm Advance Directive Response Recorded Date/ Time Advance Directives No September 17 1:40pm Reason for Referral SpecialtyDiagnoses / ProceduresReferred By ContactReferred To ContactInfectious Diseases Diagnoses Positive blood cultures Procedures CONSULT TO INFECTIOUS DISEASES OFFICE/OUTPATIENT [facility] 60 MINUTES Vaibhav Carvalho APRN.VP PRODUCT MARKETING [address] [place] [address] Referral IDStatusReasonStart DateExpiration DateVisits RequestedVisits [id number] PCP Requested Referral /[id number] / ProceduresReferred By ContactReferred To Contact Diagnoses Paroxysmal supraventricular tachycardia PAC (premature atrial contraction) Procedures ECG 12 Lead Lois Holm MD [address] [facility] [address], [address] [place] [address] Referral IDStatusReasonStart DateExpiration DateVisits RequestedVisits [id number]/20/20242/19/[id number] / Procedures Referred By ContactReferred To ContactCardiology Diagnoses Shortness of breath Paroxysmal supraventricular tachycardia PAC (premature atrial contraction) Procedures Follow Up In Cardiology Lois Holm MD [address] [facility], [place] [phone] Lois Holm MD [address] [facility], [facility] [address] [place] [phone] Referral IDStatusReasonStart DateExpiration DateVisits RequestedVisits [id number]/20/20242/19/[id number] / Procedures Referred By ContactReferred To Contact Diagnoses Obesity, Class III, BMI 40-49.9 (morbid obesity) (HCC) Pre-diabetes Christie Phan MD [address] [place] [address] Referral IDStatusReasonTurners [place] DateExpiration DateVisits RequestedVisits [id number] / ProceduresReferred By Contact Referred To Contact Diagnoses Wound healing, delayed Procedures CONSULT TO MEDICAL GENETICS - GENERAL OFFICE/OUTPATIENT [facility] 60-74 MINUTES MEDICAL GENETICS COUNSELING EACH 30 MINUTES Misty Nelson MD [address] [place], [place] [phone] [facility] Medicine [place] [address] [place] [address] Referral IDStatusReasonTurners [place] DateExpiration DateVisits RequestedVisits [id number] PCP Requested Referral Auto-Generated Referral [id number] / ProceduresReferred By ContactReferred To ContactNeurology Diagnoses POTS (postural orthostatic tachycardia syndrome) Procedures CONSULT TO NEUROLOGY OFFICE/OUTPATIENT [facility] 60-74 MINUTES Christie Phan MD [address] [place], [place] [phone] Referral IDStatusReasonStart DateExpiration DateVisits RequestedVisits [id number] PCP Requested Referral [id number] / ProceduresReferred By ContactReferred To ContactImmunology Diagnoses Raised level of immunoglobulins Procedures CONSULT TO IMMUNOLOGY OFFICE/OUTPATIENT [facility] 60-74 MINUTES Christie Phan MD [address] [place] [address] Referral IDStatusReasonStart DateExpiration DateVisits RequestedVisits [id number] PCP Requested Referral [id number] / ProceduresReferred By ContactReferred To ContactNEUROLOGICAL INSTITUTE Diagnoses Somnolence, daytime Snoring Procedures HOME SLEEP APNEA TEST (HSAT) SLEEP STD AIRFLOW HRT RATE&O2 SAT EFFORT UNATT Christie Phan MD [address] [place] [address] Neu[facility] [place] [address] [place] [address] Referral IDStatNeldaasonStsanta clarita DateExpiration DateVisits RequestedVisits [id number] Auto-Generated Referral [id number] / ProceduresReferred By ContactReferred To Contact Diagnoses Somnolence, daytime Chronic fatigue and malaise Obesity, unspecified classification, unspecified obesity type, unspecified whether serious comorbidity present Procedures CONSULT TO LIFESTYLE MEDICINE MD OFFICE/OUTPATIENT [facility] 60-74 MINUTES Vera Najera MD [address] [place] [address] [place] [address] Referral IDStatusReasonStart DateExpiration DateVisits RequestedVisits [id number] PCP Requested Referral [id number] / ProceduresReferred By ContactReferred To Contact Diagnoses Somnolence, daytime Snoring Procedures CONSULT TO SLEEP MEDICINE - ADULT OFFICE/OUTPATIENT [facility] 60-74 MINUTES Vera Najera MD [address] [place] [address] [place] [address] Referral IDStatusReasonStart DateExpiration DateVisits RequestedVisits [id number] PCP Requested Referral Medications Administered Section Medication OrderMAR ActionAction DateDoseRateSite cyanocobalamin 1,000 mcg injection 1,000 mcg, INTRAMUSCULAR, ONCE, 1 dose, On Wed05/20/22 at 1430 Given05/20/2022 2:44 PM EST1,000 mcgDeltoid, RightMedication OrderMAR Action Action DateDoseRateSite cyanocobalamin 1,000 mcg injection 1,000 mcg, INTRAMUSCULAR, ONCE, 1 dose, On Wed08/27/22 at 1000 Given08/27/2022 10:15 AM EDT1,000 mcgDeltoid, RightMedication OrderMAR Action Action DateDoseRateSite cyanocobalamin 1,000 mcg injection 1,000 mcg, INTRAMUSCULAR, ONCE, 1 dose, On Wed09/24/22 at 1030 Given09/24/2022 10:27 AM EDT1,000 mcgDeltoid, RightMedication OrderMAR Action Action DateDoseRateSite cyanocobalamin 1,000 mcg injection 1,000 mcg, INTRAMUSCULAR, ONCE, 1 dose, On Wed10/22/22 at 1200 Given10/22/2022 12:03 PM EDT1,000 mcgDeltoid, RightMedication OrderMAR Action Action DateDoseRateSite cyanocobalamin 1,000 mcg injection 1,000 mcg, INTRAMUSCULAR, ONCE, 1 dose, On Wed11/19/22 at 1100 Given11/19/2022 11:00 AM EDT1,000 mcgDeltoid, RightMedication OrderMAR Action Action DateDoseRateSite cyanocobalamin 1,000 mcg injection 1,000 mcg, INTRAMUSCULAR, ONCE, 1 dose, On Wed01/22/23 at 1130 Given01/22/2023 11:30 AM EDT1,000 mcgDeltoid, RightMedication OrderMAR Action Action DateDoseRateSite cyanocobalamin 1,000 mcg injection 1,000 mcg, INTRAMUSCULAR, ONCE, 1 dose, On Wed02/19/23 at 1130 Given02/19/2023 11:47 AM EDT1,000 mcgDeltoid, LeftMedication OrderMAR Action Action DateDoseRateSite cyanocobalamin 1,000 mcg injection 1,000 mcg, INTRAMUSCULAR, ONCE, 1 dose, On Wed03/19/23 at 1130 Given03/19/2023 11:15 AM EDT1,000 mcgDeltoid, RightMedication OrderMAR Action Action DateDoseRateSite cyanocobalamin 1,000 mcg injection 1,000 mcg, INTRAMUSCULAR, ONCE, 1 dose, On Wed04/16/23 at 1100 Given04/16/2023 11:09 AM EST1,000 mcgDeltoid, Right Chief Complaint and Reason for Visit Chief Complaint Admit Date back pain July 10, 2024 3:16pm Back Pain July 19, 2024 9:40am Reason for Visit Admit Date Lumbosacral spondylosis July 10, 2 025 3:16pm Other chronic pain July 10, 2024 3:16pm Sacroiliitis July 10, 2024 3:16pm Chief Complaint cdiff cdiffReason for VisitAbdominal pressure C. difficile diarrhea Diarrhea GERD (gastroesophageal reflux disease) Chief Complaint cdiff cdiff Patient here for a 2 week f/u in officeReason for VisitAbdominal pressure C. difficile diarrhea Diarrhea GERD (gastroesophageal reflux disease) Lupus Recurrent Clostridioides difficile diarrhea Chief Complaint cdiff cdiff Patient here for a 2 week f/u in office Patient here for a 1 month f/uReason for VisitAbdominal pressure C. difficile diarrhea Diarrhea GERD (gastroesophageal reflux disease) Lupus Recurrent Clostridioides difficile diarrhea Lupus Recurrent Clostridioides difficile diarrhea Chief Complaint Patient here for a 2 week f/u in office Patient here for a 1 month f/u REFF BY DR. JOSUE Parks for VisitLupus Recurrent Clostridioides difficile diarrhea Nipple discharge in female Recurrent Clostridioides difficile diarrhea Lumbosacral spondylosis Other chronic pain Sacroiliitis Chief Complaint Patient here for a 1 month f/u REFF BY DR. JOSUE EARLY Back PainRedeja for VisitNipple discharge in female Recurrent Clostridioides difficile diarrhea Lumbosacral spondylosis Other chronic pain Sacroiliitis Chief Complaint Patient here for a 1 month f/u REFF BY DR. JOSUE EARLY Back Pain Back Pain FOLLOW UP AFTER SELENE SIReason for VisitNipple discharge in female Recurrent Clostridioides difficile diarrhea Lumbosacral spondylosis Other chronic pain Sacroiliitis Lumbosacral spondylosis Other chronic pain Sacroiliitis Chief Complaint REFF BY DR. JOSUE EARLY Back Pain Back Pain FOLLOW UP AFTER SELENE SI f/u Abdominal pain.Reason for VisitLumbosacral spondylosis Other chronic pain Sacroiliitis Lumbosacral spondylosis [...] 3:40pm selene L3,4,5 lumbar facet MBB August 22, 2 025 1:25pm Chief Complaint Admit Date [...] f/u-constipation/dyspepsia/abd. robb n February 28, 2025 1:29pm Chief Complaint [...] :46pm Unknown March 03, 2025 4 :14pm Chief Complaint Admit Date nausea/Burning under left [...] :14pm Unknown March 09, 2025 4 :38pm Additional Source Comments INFORMATION SOURCE (unrecogn ized section and content) DATE CREATED AUTHOR 09/20/2018 [facility] DATE CREATED AUTHOR AUTHOR'S ORGANIZ ATION 12/10/2018 [facility] [place] DATE CREATED AUTHOR AUTHOR'S ORGANIZ ATION 01/13/2019 [facility] DATE CREATED AUTHOR AUTHOR'S ORGANIZ ATION 06/28/2021 [facility] DATE CREATED AUTHOR AUTHOR'S ORGANIZ ATION 10/01/2022 [facility] DATE CREATED AUTHOR AUTHOR'S ORGANIZ ATION 03/10/2024 [facility] DATE CREATED AUTHOR AUTHOR'S ORGANIZ ATION 07/22/2024 [facility] [place] DATE CREATED AUTHOR AUTHOR'S ORGANIZ ATION 07/28/2024 [facility] DATE CREATED AUTHOR AUTHOR'S ORGANIZ ATION 02/26/2025 [facility] DATE CREATED AUTHOR AUTHOR'S ORGANIZ ATION 03/02/2025 [facility] DATE CREATED AUTHOR AUTHOR'S ORGANIZ ATION 03/12/2025 [facility] Reason for Visit (unrecogniz ed section and content) ReasonCommentsInfection Follow UpSpecialtyDiagnoses / ProceduresReferred By ContactReferred To ContactInfectious Diseases Diagnoses Positive blood cultures Procedures CONSULT TO INFECTIOUS DISEASES OFFICE/OUTPATIENT [facility] 60 MINUTES Vaibhav Carvlaho APRN.[address] [place] [address] Phone: tel: fax: [facility] DateExpiration DateVisits RequestedVisits [id number] PCP Requested Referral [id number]kviksv / ProceduresReferred By ContactReferred To Contact Media Matchmaker [facility] ReasonCommentsPainongoing generalized pain.ReasonCommentsNewReasonCommentsOpened In ErrorReasonCommentsResultsReasonCommentsAbnormal labsNew patient consult ReasonCommentsNew PatientVirtual visitSpecialtyDiagnoses / ProceduresReferred By ContactReferred To Contact Diagnoses Somnolence, daytime Chronic fatigue and malaise Obesity, unspecified classification, unspecified obesity type, unspecified whether serious comorbidity present Procedures CONSULT TO LIFESTYLE MEDICINE MD OFFICE/OUTPATIENT [facility] 60-74 MINUTES Vera Najera MD [address] [place] [address] [place] [address] Referral [facility]Status[facility] DateExpiration DateVisits RequestedVisits [id number] PCP Requested Referral [id number] Total serum IgMAnemiaReasonComments ConsultSpecialtyDiagnoses / ProceduresReferred By ContactReferred To Contact Immunology Diagnoses Raised level of immunoglobulins Procedures CONSULT TO IMMUNOLOGY OFFICE/OUTPATIENT NEW HIGH MDM 60-74 MINUTES Christie Phan MD [address] [place] [address] Referral IDStatusReasonStart DateExpiration DateVisits RequestedVisits [id number] PCP Requested Referral [id number]cmmpbYlcicoxpOcbxgd RequestReason CommentsAppointmentCare Coordinator - OtherReasonCommentsFuture Appointment Scheduling questions/concernsReasonCommentsPAP Therapy Follow UpReasonComments PAP Rx FaxedDME [facility]ReasonCommentsAnemia8 week follow upReason CommentsOrdersLab Orders Before AppointmentReasonCommentsSleep Apnea ReasonCommentsAnemiaReasonCommentsPainWeight ManagementReasonCommentsReason CommentsCare CoordinationappointmentReasonCommentsEstablished PatientReason CommentsAppointmentReasonCommentsFollow UpReasonOnset DateCommentsRefill Request 12/24/2022ReasonCommentsSLEReasonOnset DateCommentsSPP Inflammatory Conditions - Treatment Jytqwwqf54/14/2023enlystaInsurance Biuongidkzkqj26/14/2023A submission pendingReasonCommentsAppointmentOrdersMedication AuthorizationReason CommentsResultsEye ExamReasonCommentsAllied Health VisitBenlysta teachingReason CommentsCMNReasonCommentsEstablished Patient Follow-UpReasonCommentsWeight ManagementReasonCommentsNew Patient VisitHEART RATE/ BPSpecialtyDiagnoses / ProceduresReferred By ContactReferred To Contact Diagnoses Irregular heart rate Procedures ECG 12 Lead Michelle Jasmine, 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 PRODUCT MARKETING [address] [facility] [address] [place] [address] Referral IDStatusReasonStart DateExpiration DateVisits RequestedVisits [id number]/17/20241/401338XnxxbeDsnbyzcpSza Patient Visit [facility], [facility]SpecialtyDiagnoses / ProceduresReferred By ContactReferred To Contact Diagnoses Paroxysmal supraventricular tachycardia PAC (premature atrial contraction) Procedures ECG 12 Lead Lois Holm MD [address] [facility] [address] [place] [address] Referral IDStatusReasonStart DateExpiration DateVisits RequestedVisits [id number]/20/20242/19/038477BmlhmmTkfyw DateCommentsSPP Inflammatory Conditions - Medication Vekbkj2907/13/2023enlystaReasonOnset Date CommentsSPP Inflammatory Conditions - Medication Myqjnl4308/12/2023enlystaReason Onset DateCommentsSPP Inflammatory Conditions - Medication Hpokwk7809/13/2023 BenlystaReasonCommentsSLEReasonOnset DateCommentsSPP Inflammatory Conditions - Medication Wkbbhs3210/12/2023enlystaReasonOnset DateCommentsRefill Request 11/11/2023easonOnset DateCommentsSPP Inflammatory Conditions - Medication Vdvqew3611/15/2023enlysta - NCA 09/2024ReasonOnset DateCommentsSPP Inflammatory Conditions - Medication Slyqdk0712/13/2023enlysta - NCA 09/2024ReasonOnset Date CommentsSPP Inflammatory Conditions - Medication Pvhnzd1201/18/2024enlystaReason Onset DateCommentsSPP Inflammatory Conditions - Medication Xdgkkq5302/14/2024 Benlysta - NCA 09/2024ReasonOnset DateCommentsSPP Inflammatory Conditions - Follow-up02/14/2024enlystaInsurance Balzmyjtexpzp30/23/2024A Renewal Submitted ReasonCommentsOrdersPAP RX.ReasonCommentsCare Coordinator - OtherEds scheduling ReasonCommentsMed Change RequestReasonCommentscmnReasonOnset DateCommentsSPP Inflammatory Conditions - Medication Uqjuli8403/13/2024enlysta - NCA 09/2024Reason CommentsBreast ProblemReasonCommentsVaginal BleedingPt present today for bleeding when she wipes.ReasonOnset DateCommentsSPP Inflammatory Conditions - Medication Rsxhec7504/11/2024enlystaReasonCommentsEar ProblemPossible thrush, ear painReasonCommentsMed RefillReasonOnset DateCommentsSPP Inflammatory Conditions - Medication Ooshin2305/12/2024enlystaSpecialtyDiagnoses / ProceduresReferred By ContactReferred To Contact Diagnoses Frequent infections Hypogammaglobulinemia (HCC) Bilateral leg weakness Discoid lupus erythematosus Procedures GAMMAGARD LIQUID INJECTION Vera Najera MD [address] [place] [address] Sawyer [facility] Gabbi [address] [place] [address] Referral IDStatusReasonStart DateExpiration DateVisits RequestedVisits [id number]/11/20245/11/257264MgrtedQfwbnzthMsom Women Visit ReasonOnset DateCommentsSPP Inflammatory Conditions - Medication Refill 06/06/2024enlystaReasonCommentsLab OrdersReasonCommentsArt TherapyReason CommentsAnemiaReasonCommentsBreath Hydrogen TestSIBO Breath TestReasonOnset Date CommentsSPP Inflammatory Conditions - Medication Pdzfei4906/29/2024enlystaReason Commentsposs raynaudsSpecialtyDiagnoses / ProceduresReferred By ContactReferred To ContactVascular Surgery Diagnoses Cold extremities Pain of lower extremity, unspecified laterality Gay De La Torre, 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 [employer]ODUCT MARKETING [address] [place] [address] Phone: tel:[phone] fax: Hayden Arciniega MD [address] [place] [address] Phone: tel:[phone] fax: Referral IDStatusReasonStart DateExpiration DateVisits RequestedVisits [id number] Review Specialty Services Required [id number]/Lip ProblemSince OctoberReasonOnset DateCommentsSPP Inflammatory Conditions - Medication Oqfrcu0807/25/2024enlysta ReasonCommentsFollow-upSkin CheckReasonCommentsAnnual ExamSpecialtyDiagnoses / ProceduresReferred By ContactReferred To ContactCardiology Diagnoses Shortness of breath Paroxysmal supraventricular tachycardia (CMS-HCC) PAC (premature atrial contraction) Procedures Follow Up In Cardiology Lois Holm MD [address] [facility], [address] [address] Phone: tel: fax: Lois Holm MD [address] [facility], [facility] [address] [place] [address] Phone: tel: fax: Referral IDStatusReasonStart DateExpiration DateVisits RequestedVisits [id number]/20/20242/882566QdlpveVfddqipgPrd Change Request ReasonCommentsPatient QuestionReasonOnset DateCommentsSPP Inflammatory Conditions - Medication Rqssbn245BenlystaReasonOnset DateCommentsRefill Vnimvui2209/01/2024ReasonCommentsThyroid NoduleFollow up ultrasound TB 08/24/24 ReasonCommentsMegaloblastic anemia due to vitamin B12 deficiencyTreatment visit ReasonOnset HolbYyeamtohOahhqtw40/17/2025ReasonCommentsMedication PreauthorizationAppointmentReasonCommentsFuture AppointmentReasonOnset Date CommentsSPP Inflammatory Conditions - Medication Bvlyoy1509/20/2024enlystaReason CommentsJoint PainReasonCommentsPatient UpdateAppointmentReasonCommentsSLE OsteoarthritisReasonCommentsConsulthypermobilitySpecialtyDiagnoses / Procedures Referred By ContactReferred To ContactGenetics / MEDICAL GENETICS Diagnoses hEDS with concerns and wants CTD evaluation Procedures EST PATIENT Self Ny Lance MD [address] [address] Phone: tel: fax: Referral IDStatusReasonStart DateExpiration DateVisits RequestedVisits [id number] Review/132646BenmgoImfkxdbtJutrsd-xe ReasonCommentsHypogammagloblinemiaMegablastic anemiaOTVReasonOnset DateComments Dhnypme5511/30/2024ReasonCommentsFollow-upSuspicious Skin LesionReasonComments ConsultPilonidal cyst- Pt had a pilonidal cyst and sinus removal about 15 yrs ago- [facility] did procedure. Everything went well and was doing fine until about 2-3 weeks ago.SpecialtyDiagnoses / ProceduresReferred By ContactReferred To Contact General Surgery Diagnoses Pilonidal cyst Procedures [place] OFFICE/OUTPATIENT [facility] 60 MINUTES Bernabe English MD [address] [place] [address] Phone: tel: fax: Terence Blum MD [address] [facility] [address] [place] [address] Phone: tel: fax: Referral IDStatusReasonStart DateExpiration DateVisits RequestedVisits [id number] Specialty Services Required / Ordered Prescriptions (unrec ognized section and content) PrescriptionSigDispensedRefillsStart DateEnd Date nitroGLYCERIN (NITROSTAT) 0.[address] 1 tablet under the tongue every 5 minutes as needed for Chest pain up to max of 3 total doses. If no relief after 1 dose, call 911. 25 tablet amLODIPine (NORVASC) 2.5 MG tablet Take 1 tablet by mouth daily 30 tablet Source Comments (unrecognize d section and content) In the event this informatio n is protected by the Federal Confidentiality of Alcohol and Drug Abuse Patient Records regulations: The Federal rules restrict any use of the information to criminally investigate or prosecute any alcohol or drug abuse patient.[facility] HospitalIn the event this information is protected by the Federal Confidentiality of Alcohol and Drug Abuse Patient Records regulations: The Federal rules restrict any use of the information to criminally investigate or prosecute any alcohol or drug abuse patient.[facility] HospitalIn the event this information is protected by the Federal Confidentiality of Alcohol and Drug Abuse Patient Records regulations: The Federal rules restrict any use of the information to criminally investigate or prosecute any alcohol or drug abuse patient.[facility] HospitalIn the event this information is protected by the Federal Confidentiality of Alcohol and Drug Abuse Patient Records regulations: The Federal rules restrict any use of the information to criminally investigate or prosecute any alcohol or drug abuse patient.[facility] HospitalIn the event this information is protected by the Federal Confidentiality of Alcohol and Drug Abuse Patient Records regulations: The Federal rules restrict any use of the information to criminally investigate or prosecute any alcohol or drug abuse patient.[facility] HospitalIn the event this information is protected by the Federal Confidentiality of Alcohol and Drug Abuse Patient Records regulations: The Federal rules restrict any use of the information to criminally investigate or prosecute any alcohol or drug abuse patient.[facility] HospitalIn the event this information is protected by the Federal Confidentiality of Alcohol and Drug Abuse Patient Records regulations: The Federal rules restrict any use of the information to criminally investigate or prosecute any alcohol or drug abuse patient.[facility] HospitalIn the event this information is protected by the Federal Confidentiality of Alcohol and Drug Abuse Patient Records regulations: The Federal rules restrict any use of the information to criminally investigate or prosecute any alcohol or drug abuse patient.[facility] HospitalIn the event this information is protected by the Federal Confidentiality of Alcohol and Drug Abuse Patient Records regulations: The Federal rules restrict any use of the information to criminally investigate or prosecute any alcohol or drug abuse patient.[facility] HospitalIn the event this information is protected by the Federal Confidentiality of Alcohol and Drug Abuse Patient Records regulations: The Federal rules restrict any use of the information to criminally investigate or prosecute any alcohol or drug abuse patient.[facility] HospitalIn the event this information is protected by the Federal Confidentiality of Alcohol and Drug Abuse Patient Records regulations: The Federal rules restrict any use of the information to criminally investigate or prosecute any alcohol or drug abuse patient.[facility] HospitalIn the event this information is protected by the Federal Confidentiality of Alcohol and Drug Abuse Patient Records regulations: The Federal rules restrict any use of the information to criminally investigate or prosecute any alcohol or drug abuse patient.[facility] HospitalIn the event this information is protected by the Federal Confidentiality of Alcohol and Drug Abuse Patient Records regulations: The Federal rules restrict any use of the information to criminally investigate or prosecute any alcohol or drug abuse patient.[facility] HospitalIn the event this information is protected by the Federal Confidentiality of Alcohol and Drug Abuse Patient Records regulations: The Federal rules restrict any use of the information to criminally investigate or prosecute any alcohol or drug abuse patient.[facility] HospitalIn the event this information is protected by the Federal Confidentiality of Alcohol and Drug Abuse Patient Records regulations: The Federal rules restrict any use of the information to criminally investigate or prosecute any alcohol or drug abuse patient.[facility] HospitalIn the event this information is protected by the Federal Confidentiality of Alcohol and Drug Abuse Patient Records regulations: The Federal rules restrict any use of the information to criminally investigate or prosecute any alcohol or drug abuse patient.[facility] HospitalIn the event this information is protected by the Federal Confidentiality of Alcohol and Drug Abuse Patient Records regulations: The Federal rules restrict any use of the information to criminally investigate or prosecute any alcohol or drug abuse patient.[facility] HospitalIn the event this information is protected by the Federal Confidentiality of Alcohol and Drug Abuse Patient Records regulations: The Federal rules restrict any use of the information to criminally investigate or prosecute any alcohol or drug abuse patient.[facility] HospitalIn the event this information is protected by the Federal Confidentiality of Alcohol and Drug Abuse Patient Records regulations: The Federal rules restrict any use of the information to criminally investigate or prosecute any alcohol or drug abuse patient.[facility] HospitalIn the event this information is protected by the Federal Confidentiality of Alcohol and Drug Abuse Patient Records regulations: The Federal rules restrict any use of the information to criminally investigate or prosecute any alcohol or drug abuse patient.[facility] HospitalIn the event this information is protected by the Federal Confidentiality of Alcohol and Drug Abuse Patient Records regulations: The Federal rules restrict any use of the information to criminally investigate or prosecute any alcohol or drug abuse patient.[facility] HospitalIn the event this information is protected by the Federal Confidentiality of Alcohol and Drug Abuse Patient Records regulations: The Federal rules restrict any use of the information to criminally investigate or prosecute any alcohol or drug abuse patient.[facility] HospitalIn the event this information is protected by the Federal Confidentiality of Alcohol and Drug Abuse Patient Records regulations: The Federal rules restrict any use of the information to criminally investigate or prosecute any alcohol or drug abuse patient.[facility] HospitalIn the event this information is protected by the Federal Confidentiality of Alcohol and Drug Abuse Patient Records regulations: The Federal rules restrict any use of the information to criminally investigate or prosecute any alcohol or drug abuse patient.[facility] HospitalIn the event this information is protected by the Federal Confidentiality of Alcohol and Drug Abuse Patient Records regulations: The Federal rules restrict any use of the information to criminally investigate or prosecute any alcohol or drug abuse patient.[facility] HospitalIn the event this information is protected by the Federal Confidentiality of Alcohol and Drug Abuse Patient Records regulations: The Federal rules restrict any use of the information to criminally investigate or prosecute any alcohol or drug abuse patient.[facility] HospitalIn the event this information is protected by the Federal Confidentiality of Alcohol and Drug Abuse Patient Records regulations: The Federal rules restrict any use of the information to criminally investigate or prosecute any alcohol or drug abuse patient.[facility] HospitalIn the event this information is protected by the Federal Confidentiality of Alcohol and Drug Abuse Patient Records regulations: The Federal rules restrict any use of the information to criminally investigate or prosecute any alcohol or drug abuse patient.[facility] HospitalIn the event this information is protected by the Federal Confidentiality of Alcohol and Drug Abuse Patient Records regulations: The Federal rules restrict any use of the information to criminally investigate or prosecute any alcohol or drug abuse patient.[facility] HospitalIn the event this information is protected by the Federal Confidentiality of Alcohol and Drug Abuse Patient Records regulations: The Federal rules restrict any use of the information to criminally investigate or prosecute any alcohol or drug abuse patient.[facility] HospitalIn the event this information is protected by the Federal Confidentiality of Alcohol and Drug Abuse Patient Records regulations: The Federal rules restrict any use of the information to criminally investigate or prosecute any alcohol or drug abuse patient.[facility] HospitalIn the event this information is protected by the Federal Confidentiality of Alcohol and Drug Abuse Patient Records regulations: The Federal rules restrict any use of the information to criminally investigate or prosecute any alcohol or drug abuse patient.[facility] HospitalIn the event this information is protected by the Federal Confidentiality of Alcohol and Drug Abuse Patient Records regulations: The Federal rules restrict any use of the information to criminally investigate or prosecute any alcohol or drug abuse patient.[facility] HospitalIn the event this information is protected by the Federal Confidentiality of Alcohol and Drug Abuse Patient Records regulations: The Federal rules restrict any use of the information to criminally investigate or prosecute any alcohol or drug abuse patient.[facility] HospitalIn the event this information is protected by the Federal Confidentiality of Alcohol and Drug Abuse Patient Records regulations: The Federal rules restrict any use of the information to criminally investigate or prosecute any alcohol or drug abuse patient.[facility] HospitalIn the event this information is protected by the Federal Confidentiality of Alcohol and Drug Abuse Patient Records regulations: The Federal rules restrict any use of the information to criminally investigate or prosecute any alcohol or drug abuse patient.[facility] HospitalIn the event this information is protected by the Federal Confidentiality of Alcohol and Drug Abuse Patient Records regulations: The Federal rules restrict any use of the information to criminally investigate or prosecute any alcohol or drug abuse patient.[facility] HospitalIn the event this information is protected by the Federal Confidentiality of Alcohol and Drug Abuse Patient Records regulations: The Federal rules restrict any use of the information to criminally investigate or prosecute any alcohol or drug abuse patient.[facility] HospitalIn the event this information is protected by the Federal Confidentiality of Alcohol and Drug Abuse Patient Records regulations: The Federal rules restrict any use of the information to criminally investigate or prosecute any alcohol or drug abuse patient.[facility] HospitalIn the event this information is protected by the Federal Confidentiality of Alcohol and Drug Abuse Patient Records regulations: The Federal rules restrict any use of the information to criminally investigate or prosecute any alcohol or drug abuse patient.[facility] HospitalIn the event this information is protected by the Federal Confidentiality of Alcohol and Drug Abuse Patient Records regulations: The Federal rules restrict any use of the information to criminally investigate or prosecute any alcohol or drug abuse patient.[facility] HospitalIn the event this information is protected by the Federal Confidentiality of Alcohol and Drug Abuse Patient Records regulations: The Federal rules restrict any use of the information to criminally investigate or prosecute any alcohol or drug abuse patient.[facility] HospitalIn the event this information is protected by the Federal Confidentiality of Alcohol and Drug Abuse Patient Records regulations: The Federal rules restrict any use of the information to criminally investigate or prosecute any alcohol or drug abuse patient.[facility] HospitalIn the event this information is protected by the Federal Confidentiality of Alcohol and Drug Abuse Patient Records regulations: The Federal rules restrict any use of the information to criminally investigate or prosecute any alcohol or drug abuse patient.[facility] HospitalIn the event this information is protected by the Federal Confidentiality of Alcohol and Drug Abuse Patient Records regulations: The Federal rules restrict any use of the information to criminally investigate or prosecute any alcohol or drug abuse patient.[facility] HospitalIn the event this information is protected by the Federal Confidentiality of Alcohol and Drug Abuse Patient Records regulations: The Federal rules restrict any use of the information to criminally investigate or prosecute any alcohol or drug abuse patient.[facility] HospitalIn the event this information is protected [...] any alcohol or drug abuse patient.[facility] HospitalIn the event this information is protected by the Federal Confidentiality of Alcohol and Drug Abuse Patient Records regulations: The Federal rules restrict any use of the information to criminally investigate or prosecute any alcohol or drug abuse patient.[facility] HospitalIn the event this information is protected by the Federal Confidentiality of Alcohol and Drug Abuse Patient Records regulations: The Federal rules restrict any use of the information to criminally investigate or prosecute any alcohol or drug abuse patient.[facility] HospitalIn the event this information is protected by the Federal Confidentiality of Alcohol and Drug Abuse Patient Records regulations: The Federal rules restrict any use of the information to criminally investigate or prosecute any alcohol or drug abuse patient.[facility] HospitalIn the event this information is protected by the Federal Confidentiality of Alcohol and Drug Abuse Patient Records regulations: The Federal rules restrict any use of the information to criminally investigate or prosecute any alcohol or drug abuse patient.[facility] HospitalIn the event this information is protected by the Federal Confidentiality of Alcohol and Drug Abuse Patient Records regulations: The Federal rules restrict any use of the information to criminally investigate or prosecute any alcohol or drug abuse patient.[facility] HospitalIn the event this information is protected by the Federal Confidentiality of Alcohol and Drug Abuse Patient Records regulations: The Federal rules restrict any use of the information to criminally investigate or prosecute any alcohol or drug abuse patient.[facility] HospitalIn the event this information is protected by the Federal Confidentiality of Alcohol and Drug Abuse Patient Records regulations: The Federal rules restrict any use of the information to criminally investigate or prosecute any alcohol or drug abuse patient.[facility] HospitalIn the event this information is protected by the Federal Confidentiality of Alcohol and Drug Abuse Patient Records regulations: The Federal rules restrict any use of the information to criminally investigate or prosecute any alcohol or drug abuse patient.[facility] HospitalIn the event this information is protected by the Federal Confidentiality of Alcohol and Drug Abuse Patient Records regulations: The Federal rules restrict any use of the information to criminally investigate or prosecute any alcohol or drug abuse patient.[facility] HospitalIn the event this information is protected by the Federal Confidentiality of Alcohol and Drug Abuse Patient Records regulations: The Federal rules restrict any use of the information to criminally investigate or prosecute any alcohol or drug abuse patient.[facility] HospitalIn the event this information is protected by the Federal Confidentiality of Alcohol and Drug Abuse Patient Records regulations: The Federal rules restrict any use of the information to criminally investigate or prosecute any alcohol or drug abuse patient.[facility] HospitalIn the event this information is protected by the Federal Confidentiality of Alcohol and Drug Abuse Patient Records regulations: The Federal rules restrict any use of the information to criminally investigate or prosecute any alcohol or drug abuse patient.[facility] HospitalIn the event this information is protected by the Federal Confidentiality of Alcohol and Drug Abuse Patient Records regulations: The Federal rules restrict any use of the information to criminally investigate or prosecute any alcohol or drug abuse patient.[facility] HospitalIn the event this information is protected by the Federal Confidentiality of Alcohol and Drug Abuse Patient Records regulations: The Federal rules restrict any use of the information to criminally investigate or prosecute any alcohol or drug abuse patient.[facility] HospitalIn the event this information is protected by the Federal Confidentiality of Alcohol and Drug Abuse Patient Records regulations: The Federal rules restrict any use of the information to criminally investigate or prosecute any alcohol or drug abuse patient.[facility] HospitalIn the event this information is protected by the Federal Confidentiality of Alcohol and Drug Abuse Patient Records regulations: The Federal rules restrict any use of the information to criminally investigate or prosecute any alcohol or drug abuse patient.[facility] HospitalIn the event this information is protected by the Federal Confidentiality of Alcohol and Drug Abuse Patient Records regulations: The Federal rules restrict any use of the information to criminally investigate or prosecute any alcohol or drug abuse patient.[facility] HospitalIn the event this information is protected by the Federal Confidentiality of Alcohol and Drug Abuse Patient Records regulations: The Federal rules restrict any use of the information to criminally investigate or prosecute any alcohol or drug abuse patient.[facility] HospitalIn the event this information is protected by the Federal Confidentiality of Alcohol and Drug Abuse Patient Records regulations: The Federal rules restrict any use of the information to criminally investigate or prosecute any alcohol or drug abuse patient.[facility] HospitalIn the event this information is protected by the Federal Confidentiality of Alcohol and Drug Abuse Patient Records regulations: The Federal rules restrict any use of the information to criminally investigate or prosecute any alcohol or drug abuse patient.[facility] HospitalIn the event this information is protected by the Federal Confidentiality of Alcohol and Drug Abuse Patient Records regulations: The Federal rules restrict any use of the information to criminally investigate or prosecute any alcohol or drug abuse patient.[facility] HospitalIn the event this information is protected by the Federal Confidentiality of Alcohol and Drug Abuse Patient Records regulations: The Federal rules restrict any use of the information to criminally investigate or prosecute any alcohol or drug abuse patient.[facility] HospitalIn the event this information is protected by the Federal Confidentiality of Alcohol and Drug Abuse Patient Records regulations: The Federal rules restrict any use of the information to criminally investigate or prosecute any alcohol or drug abuse patient.[facility] HospitalIn the event this information is protected by the Federal Confidentiality of Alcohol and Drug Abuse Patient Records regulations: The Federal rules restrict any use of the information to criminally investigate or prosecute any alcohol or drug abuse patient.[facility] HospitalIn the event this information is protected by the Federal Confidentiality of Alcohol and Drug Abuse Patient Records regulations: The Federal rules restrict any use of the information to criminally investigate or prosecute any alcohol or drug abuse patient.[facility] HospitalIn the event this information is protected by the Federal Confidentiality of Alcohol and Drug Abuse Patient Records regulations: The Federal rules restrict any use of the information to criminally investigate or prosecute any alcohol or drug abuse patient.[facility] HospitalIn the event this information is protected by the Federal Confidentiality of Alcohol and Drug Abuse Patient Records regulations: The Federal rules restrict any use of the information to criminally investigate or prosecute any alcohol or drug abuse patient.[facility] HospitalIn the event this information is protected by the Federal Confidentiality of Alcohol and Drug Abuse Patient Records regulations: The Federal rules restrict any use of the information to criminally investigate or prosecute any alcohol or drug abuse patient.[facility] HospitalIn the event this information is protected by the Federal Confidentiality of Alcohol and Drug Abuse Patient Records regulations: The Federal rules restrict any use of the information to criminally investigate or prosecute any alcohol or drug abuse patient.[facility] HospitalIn the event this information is protected by the Federal Confidentiality of Alcohol and Drug Abuse Patient Records regulations: The Federal rules restrict any use of the information to criminally investigate or prosecute any alcohol or drug abuse patient.[facility] HospitalIn the event this information is protected by the Federal Confidentiality of Alcohol and Drug Abuse Patient Records regulations: The Federal rules restrict any use of the information to criminally investigate or prosecute any alcohol or drug abuse patient.[facility] HospitalIn the event this information is protected by the Federal Confidentiality of Alcohol and Drug Abuse Patient Records regulations: The Federal rules restrict any use of the information to criminally investigate or prosecute any alcohol or drug abuse patient.[facility] HospitalIn the event this information is protected by the Federal Confidentiality of Alcohol and Drug Abuse Patient Records regulations: The Federal rules restrict any use of the information to criminally investigate or prosecute any alcohol or drug abuse patient.[facility] HospitalIn the event this information is protected by the Federal Confidentiality of Alcohol and Drug Abuse Patient Records regulations: The Federal rules restrict any use of the information to criminally investigate or prosecute any alcohol or drug abuse patient.[facility] HospitalIn the event this information is protected by the Federal Confidentiality of Alcohol and Drug Abuse Patient Records regulations: The Federal rules restrict any use of the information to criminally investigate or prosecute any alcohol or drug abuse patient.[facility] HospitalIn the event this information is protected by the Federal Confidentiality of Alcohol and Drug Abuse Patient Records regulations: The Federal rules restrict any use of the information to criminally investigate or prosecute any alcohol or drug abuse patient.[facility] HospitalIn the event this information is protected by the Federal Confidentiality of Alcohol and Drug Abuse Patient Records regulations: The Federal rules restrict any use of the information to criminally investigate or prosecute any alcohol or drug abuse patient.[facility] HospitalIn the event this information is protected by the Federal Confidentiality of Alcohol and Drug Abuse Patient Records regulations: The Federal rules restrict any use of the information to criminally investigate or prosecute any alcohol or drug abuse patient.[facility] HospitalIn the event this information is protected by the Federal Confidentiality of Alcohol and Drug Abuse Patient Records regulations: The Federal rules restrict any use of the information to criminally investigate or prosecute any alcohol or drug abuse patient.[facility] HospitalIn the event this information is protected by the Federal Confidentiality of Alcohol and Drug Abuse Patient Records regulations: The Federal rules restrict any use of the information to criminally investigate or prosecute any alcohol or drug abuse patient.[facility] HospitalIn the event this information is protected by the Federal Confidentiality of Alcohol and Drug Abuse Patient Records regulations: The Federal rules restrict any use of the information to criminally investigate or prosecute any alcohol or drug abuse patient.[facility] HospitalIn the event this information is protected by the Federal Confidentiality of Alcohol and Drug Abuse Patient Records regulations: The Federal rules restrict any use of the information to criminally investigate or prosecute any alcohol or drug abuse patient.[facility] HospitalIn the event this information is protected by the Federal Confidentiality of Alcohol and Drug Abuse Patient Records regulations: The Federal rules restrict any use of the information to criminally investigate or prosecute any alcohol or drug abuse patient.[facility] HospitalIn the event this information is protected by the Federal Confidentiality of Alcohol and Drug Abuse Patient Records regulations: The Federal rules restrict any use of the information to criminally investigate or prosecute any alcohol or drug abuse patient.[facility] HospitalIn the event this information is protected by the Federal Confidentiality of Alcohol and Drug Abuse Patient Records regulations: The Federal rules restrict any use of the information to criminally investigate or prosecute any alcohol or drug abuse patient.[facility] HospitalIn the event this information is protected by the Federal Confidentiality of Alcohol and Drug Abuse Patient Records regulations: The Federal rules restrict any use of the information to criminally investigate or prosecute any alcohol or drug abuse patient.[facility] HospitalIn the event this information is protected by the Federal Confidentiality of Alcohol and Drug Abuse Patient Records regulations: The Federal rules restrict any use of the information to criminally investigate or prosecute any alcohol or drug abuse patient.[facility] HospitalIn the event this information is protected by the Federal Confidentiality of Alcohol and Drug Abuse Patient Records regulations: The Federal rules restrict any use of the information to criminally investigate or prosecute any alcohol or drug abuse patient.[facility] HospitalIn the event this information is protected [...] any alcohol or drug abuse patient.[facility] HospitalIn the event this information is protected by the Federal Confidentiality of Alcohol and Drug Abuse Patient Records regulations: The Federal rules restrict any use of the information to criminally investigate or prosecute any alcohol or drug abuse patient.[facility] HospitalIn the event this information is protected by the Federal Confidentiality of Alcohol and Drug Abuse Patient Records regulations: The Federal rules restrict any use of the information to criminally investigate or prosecute any alcohol or drug abuse patient.[facility] HospitalIn the event this information is protected by the Federal Confidentiality of Alcohol and Drug Abuse Patient Records regulations: The Federal rules restrict any use of the information to criminally investigate or prosecute any alcohol or drug abuse patient.[facility] HospitalIn the event this information is protected by the Federal Confidentiality of Alcohol and Drug Abuse Patient Records regulations: The Federal rules restrict any use of the information to criminally investigate or prosecute any alcohol or drug abuse patient.[facility] HospitalIn the event this information is protected by the Federal Confidentiality of Alcohol and Drug Abuse Patient Records regulations: The Federal rules restrict any use of the information to criminally investigate or prosecute any alcohol or drug abuse patient.[facility] HospitalIn the event this information is protected by the Federal Confidentiality of Alcohol and Drug Abuse Patient Records regulations: The Federal rules restrict any use of the information to criminally investigate or prosecute any alcohol or drug abuse patient.[facility] HospitalIn the event this information is protected by the Federal Confidentiality of Alcohol and Drug Abuse Patient Records regulations: The Federal rules restrict any use of the information to criminally investigate or prosecute any alcohol or drug abuse patient.[facility] HospitalIn the event this information is protected by the Federal Confidentiality of Alcohol and Drug Abuse Patient Records regulations: The Federal rules restrict any use of the information to criminally investigate or prosecute any alcohol or drug abuse patient.[facility] HospitalIn the event this information is protected by the Federal Confidentiality of Alcohol and Drug Abuse Patient Records regulations: The Federal rules restrict any use of the information to criminally investigate or prosecute any alcohol or drug abuse patient.[facility] HospitalIn the event this information is protected by the Federal Confidentiality of Alcohol and Drug Abuse Patient Records regulations: The Federal rules restrict any use of the information to criminally investigate or prosecute any alcohol or drug abuse patient.[facility] HospitalIn the event this information is protected by the Federal Confidentiality of Alcohol and Drug Abuse Patient Records regulations: The Federal rules restrict any use of the information to criminally investigate or prosecute any alcohol or drug abuse patient.[facility] HospitalIn the event this information is protected by the Federal Confidentiality of Alcohol and Drug Abuse Patient Records regulations: The Federal rules restrict any use of the information to criminally investigate or prosecute any alcohol or drug abuse patient.[facility] HospitalIn the event this information is protected by the Federal Confidentiality of Alcohol and Drug Abuse Patient Records regulations: The Federal rules restrict any use of the information to criminally investigate or prosecute any alcohol or drug abuse patient.[facility] HospitalIn the event this information is protected by the Federal Confidentiality of Alcohol and Drug Abuse Patient Records regulations: The Federal rules restrict any use of the information to criminally investigate or prosecute any alcohol or drug abuse patient.[facility] HospitalIn the event this information is protected by the Federal Confidentiality of Alcohol and Drug Abuse Patient Records regulations: The Federal rules restrict any use of the information to criminally investigate or prosecute any alcohol or drug abuse patient.[facility] HospitalIn the event this information is protected by the Federal Confidentiality of Alcohol and Drug Abuse Patient Records regulations: The Federal rules restrict any use of the information to criminally investigate or prosecute any alcohol or drug abuse patient.[facility] HospitalIn the event this information is protected by the Federal Confidentiality of Alcohol and Drug Abuse Patient Records regulations: The Federal rules restrict any use of the information to criminally investigate or prosecute any alcohol or drug abuse patient.[facility] HospitalIn the event this information is protected by the Federal Confidentiality of Alcohol and Drug Abuse Patient Records regulations: The Federal rules restrict any use of the information to criminally investigate or prosecute any alcohol or drug abuse patient.[facility] HospitalIn the event this information is protected by the Federal Confidentiality of Alcohol and Drug Abuse Patient Records regulations: The Federal rules restrict any use of the information to criminally investigate or prosecute any alcohol or drug abuse patient.[facility] HospitalIn the event this information is protected by the Federal Confidentiality of Alcohol and Drug Abuse Patient Records regulations: The Federal rules restrict any use of the information to criminally investigate or prosecute any alcohol or drug abuse patient.[facility] HospitalIn the event this information is protected by the Federal Confidentiality of Alcohol and Drug Abuse Patient Records regulations: The Federal rules restrict any use of the information to criminally investigate or prosecute any alcohol or drug abuse patient.[facility] HospitalIn the event this information is protected by the Federal Confidentiality of Alcohol and Drug Abuse Patient Records regulations: The Federal rules restrict any use of the information to criminally investigate or prosecute any alcohol or drug abuse patient.[facility] HospitalIn the event this information is protected by the Federal Confidentiality of Alcohol and Drug Abuse Patient Records regulations: The Federal rules restrict any use of the information to criminally investigate or prosecute any alcohol or drug abuse patient.[facility] HospitalIn the event this information is protected by the Federal Confidentiality of Alcohol and Drug Abuse Patient Records regulations: The Federal rules restrict any use of the information to criminally investigate or prosecute any alcohol or drug abuse patient.[facility] HospitalIn the event this information is protected by the Federal Confidentiality of Alcohol and Drug Abuse Patient Records regulations: The Federal rules restrict any use of the information to criminally investigate or prosecute any alcohol or drug abuse patient.[facility] HospitalIn the event this information is protected by the Federal Confidentiality of Alcohol and Drug Abuse Patient Records regulations: The Federal rules restrict any use of the information to criminally investigate or prosecute any alcohol or drug abuse patient.[facility] HospitalIn the event this information is protected by the Federal Confidentiality of Alcohol and Drug Abuse Patient Records regulations: The Federal rules restrict any use of the information to criminally investigate or prosecute any alcohol or drug abuse patient.[facility] HospitalIn the event this information is protected by the Federal Confidentiality of Alcohol and Drug Abuse Patient Records regulations: The Federal rules restrict any use of the information to criminally investigate or prosecute any alcohol or drug abuse patient.[facility] HospitalIn the event this information is protected by the Federal Confidentiality of Alcohol and Drug Abuse Patient Records regulations: The Federal rules restrict any use of the information to criminally investigate or prosecute any alcohol or drug abuse patient.[facility] HospitalIn the event this information is protected by the Federal Confidentiality of Alcohol and Drug Abuse Patient Records regulations: The Federal rules restrict any use of the information to criminally investigate or prosecute any alcohol or drug abuse patient.[facility] HospitalIn the event this information is protected by the Federal Confidentiality of Alcohol and Drug Abuse Patient Records regulations: The Federal rules restrict any use of the information to criminally investigate or prosecute any alcohol or drug abuse patient.[facility] HospitalIn the event this information is protected by the Federal Confidentiality of Alcohol and Drug Abuse Patient Records regulations: The Federal rules restrict any use of the information to criminally investigate or prosecute any alcohol or drug abuse patient.[facility] HospitalIn the event this information is protected by the Federal Confidentiality of Alcohol and Drug Abuse Patient Records regulations: The Federal rules restrict any use of the information to criminally investigate or prosecute any alcohol or drug abuse patient.[facility] HospitalIn the event this information is protected by the Federal Confidentiality of Alcohol and Drug Abuse Patient Records regulations: The Federal rules restrict any use of the information to criminally investigate or prosecute any alcohol or drug abuse patient.[facility] HospitalIn the event this information is protected by the Federal Confidentiality of Alcohol and Drug Abuse Patient Records regulations: The Federal rules restrict any use of the information to criminally investigate or prosecute any alcohol or drug abuse patient.[facility] HospitalIn the event this information is protected by the Federal Confidentiality of Alcohol and Drug Abuse Patient Records regulations: The Federal rules restrict any use of the information to criminally investigate or prosecute any alcohol or drug abuse patient.[facility] HospitalIn the event this information is protected by the Federal Confidentiality of Alcohol and Drug Abuse Patient Records regulations: The Federal rules restrict any use of the information to criminally investigate or prosecute any alcohol or drug abuse patient.[facility] HospitalIn the event this information is protected by the Federal Confidentiality of Alcohol and Drug Abuse Patient Records regulations: The Federal rules restrict any use of the information to criminally investigate or prosecute any alcohol or drug abuse patient.[facility] HospitalIn the event this information is protected by the Federal Confidentiality of Alcohol and Drug Abuse Patient Records regulations: The Federal rules restrict any use of the information to criminally investigate or prosecute any alcohol or drug abuse patient.[facility] HospitalIn the event this information is protected by the Federal Confidentiality of Alcohol and Drug Abuse Patient Records regulations: The Federal rules restrict any use of the information to criminally investigate or prosecute any alcohol or drug abuse patient.[facility] HospitalIn the event this information is protected by the Federal Confidentiality of Alcohol and Drug Abuse Patient Records regulations: The Federal rules restrict any use of the information to criminally investigate or prosecute any alcohol or drug abuse patient.[facility] HospitalIn the event this information is protected by the Federal Confidentiality of Alcohol and Drug Abuse Patient Records regulations: The Federal rules restrict any use of the information to criminally investigate or prosecute any alcohol or drug abuse patient.[facility] HospitalIn the event this information is protected by the Federal Confidentiality of Alcohol and Drug Abuse Patient Records regulations: The Federal rules restrict any use of the information to criminally investigate or prosecute any alcohol or drug abuse patient.[facility] HospitalIn the event this information is protected by the Federal Confidentiality of Alcohol and Drug Abuse Patient Records regulations: The Federal rules restrict any use of the information to criminally investigate or prosecute any alcohol or drug abuse patient.[facility] HospitalIn the event this information is protected by the Federal Confidentiality of Alcohol and Drug Abuse Patient Records regulations: The Federal rules restrict any use of the information to criminally investigate or prosecute any alcohol or drug abuse patient.[facility] HospitalIn the event this information is protected by the Federal Confidentiality of Alcohol and Drug Abuse Patient Records regulations: The Federal rules restrict any use of the information to criminally investigate or prosecute any alcohol or drug abuse patient.[facility] HospitalIn the event this information is protected by the Federal Confidentiality of Alcohol and Drug Abuse Patient Records regulations: The Federal rules restrict any use of the information to criminally investigate or prosecute any alcohol or drug abuse patient.[facility] HospitalIn the event this information is protected by the Federal Confidentiality of Alcohol and Drug Abuse Patient Records regulations: The Federal rules restrict any use of the information to criminally investigate or prosecute any alcohol or drug abuse patient.[facility] HospitalIn the event this information is protected [...] any alcohol or drug abuse patient.[facility] HospitalIn the event this information is protected by the Federal Confidentiality of Alcohol and Drug Abuse Patient Records regulations: The Federal rules restrict any use of the information to criminally investigate or prosecute any alcohol or drug abuse patient.[facility] HospitalIn the event this information is protected by the Federal Confidentiality of Alcohol and Drug Abuse Patient Records regulations: The Federal rules restrict any use of the information to criminally investigate or prosecute any alcohol or drug abuse patient.[facility] HospitalIn the event this information is protected by the Federal Confidentiality of Alcohol and Drug Abuse Patient Records regulations: The Federal rules restrict any use of the information to criminally investigate or prosecute any alcohol or drug abuse patient.[facility] HospitalIn the event this information is protected by the Federal Confidentiality of Alcohol and Drug Abuse Patient Records regulations: The Federal rules restrict any use of the information to criminally investigate or prosecute any alcohol or drug abuse patient.[facility] HospitalIn the event this information is protected by the Federal Confidentiality of Alcohol and Drug Abuse Patient Records regulations: The Federal rules restrict any use of the information to criminally investigate or prosecute any alcohol or drug abuse patient.[facility] HospitalIn the event this information is protected by the Federal Confidentiality of Alcohol and Drug Abuse Patient Records regulations: The Federal rules restrict any use of the information to criminally investigate or prosecute any alcohol or drug abuse patient.[facility] HospitalIn the event this information is protected by the Federal Confidentiality of Alcohol and Drug Abuse Patient Records regulations: The Federal rules restrict any use of the information to criminally investigate or prosecute any alcohol or drug abuse patient.[facility] HospitalIn the event this information is protected by the Federal Confidentiality of Alcohol and Drug Abuse Patient Records regulations: The Federal rules restrict any use of the information to criminally investigate or prosecute any alcohol or drug abuse patient.[facility] HospitalIn the event this information is protected by the Federal Confidentiality of Alcohol and Drug Abuse Patient Records regulations: The Federal rules restrict any use of the information to criminally investigate or prosecute any alcohol or drug abuse patient.[facility] HospitalIn the event this information is protected by the Federal Confidentiality of Alcohol and Drug Abuse Patient Records regulations: The Federal rules restrict any use of the information to criminally investigate or prosecute any alcohol or drug abuse patient.[facility] HospitalIn the event this information is protected by the Federal Confidentiality of Alcohol and Drug Abuse Patient Records regulations: The Federal rules restrict any use of the information to criminally investigate or prosecute any alcohol or drug abuse patient.[facility] HospitalIn the event this information is protected by the Federal Confidentiality of Alcohol and Drug Abuse Patient Records regulations: The Federal rules restrict any use of the information to criminally investigate or prosecute any alcohol or drug abuse patient.[facility] HospitalIn the event this information is protected by the Federal Confidentiality of Alcohol and Drug Abuse Patient Records regulations: The Federal rules restrict any use of the information to criminally investigate or prosecute any alcohol or drug abuse patient.[facility] HospitalIn the event this information is protected by the Federal Confidentiality of Alcohol and Drug Abuse Patient Records regulations: The Federal rules restrict any use of the information to criminally investigate or prosecute any alcohol or drug abuse patient.[facility] HospitalIn the event this information is protected by the Federal Confidentiality of Alcohol and Drug Abuse Patient Records regulations: The Federal rules restrict any use of the information to criminally investigate or prosecute any alcohol or drug abuse patient.[facility] HospitalIn the event this information is protected by the Federal Confidentiality of Alcohol and Drug Abuse Patient Records regulations: The Federal rules restrict any use of the information to criminally investigate or prosecute any alcohol or drug abuse patient.[facility] HospitalIn the event this information is protected by the Federal Confidentiality of Alcohol and Drug Abuse Patient Records regulations: The Federal rules restrict any use of the information to criminally investigate or prosecute any alcohol or drug abuse patient.[facility] HospitalIn the event this information is protected by the Federal Confidentiality of Alcohol and Drug Abuse Patient Records regulations: The Federal rules restrict any use of the information to criminally investigate or prosecute any alcohol or drug abuse patient.[facility] HospitalIn the event this information is protected by the Federal Confidentiality of Alcohol and Drug Abuse Patient Records regulations: The Federal rules restrict any use of the information to criminally investigate or prosecute any alcohol or drug abuse patient.[facility] HospitalIn the event this information is protected by the Federal Confidentiality of Alcohol and Drug Abuse Patient Records regulations: The Federal rules restrict any use of the information to criminally investigate or prosecute any alcohol or drug abuse patient.[facility] HospitalIn the event this information is protected by the Federal Confidentiality of Alcohol and Drug Abuse Patient Records regulations: The Federal rules restrict any use of the information to criminally investigate or prosecute any alcohol or drug abuse patient.[facility] HospitalIn the event this information is protected by the Federal Confidentiality of Alcohol and Drug Abuse Patient Records regulations: The Federal rules restrict any use of the information to criminally investigate or prosecute any alcohol or drug abuse patient.[facility] Care Teams (unrecognized sec tion and content) Team Status: Active Member Role Status Dates Gay De La Torre EDUCATION ANALYST-C Primary Care Provider Active Team Status: Inactive Member Role Status Dates Gay De La Torre EDUCATION ANALYST-C Primary Care Provider Active Start: November 30, 2024 End: November 30, 2024Pegggal Arnett , NPAttending ProviderActiveStart: November 30, 2024 End: November 30, 2024 Team Status: Inactive Member Role Status Dates Gay De La Torre EDUCATION ANALYST-C Primary Care Provider Active Start: December 12, 2024 End: December 12, 2024Luiz Gee ProviderActiveStart: December 12, 2024 End: December 12, 2024 Team Status: Inactive Member Role Status Dates Gay De La Torre EDUCATION ANALYST-C Primary Care Provider Active Start: January 17, 2025 End: January 17, 2025Pegggal Arnett , NPAttending ProviderActiveStart: January 17, 2025 End: January 17, 2025 Team Status: Active Member Role Status Dates Gay De La Torre EDUCATION ANALYST-C Primary Care Provider Active Start: January 31, 2025 Adolfo Kang MDAttending ProviderActiveStart: January 31, 2025 Adolfo Kang MDOther ProviderActiveStart: January 31, 2025 Team Status: Inactive Member Role Status Dates Gay De La Torre EDUCATION ANALYST-C Primary Care Provider Active Start: February 14, 2025 End: February 14, 2025Pegggal Arnett , NPAttending ProviderActiveStart: February 14, 2025 End: February 14, 2025 Team Status: Inactive Member Role Status Dates Mathew Ji MD Attending Provider Active St art: February 26, 2025 End: February 26, 2025 Team Status: Inactive Member Role Status Dates Bandar Portillo APRN Attending Provider Active Start: February 28, 2025 End: February 28, 2025Gay De La Torre NP-CPrimary Care ProviderActiveStart: February 28, 2025 End: February 28, 2025 Team Status: Active Member Role Status Dates Gay De La Torre EDUCATION ANALYST-C Primary Care Provider Active Start: November 21, 2024 Adolfo Kang MDAttending ProviderActiveStart: November 21, 2024 Team Status: Inactive Member Role Status Dates Gay De La Torre NP-C Primary Care Provider Active Start: November 21, 2024 End: November 21, 2024Bill Pickeringending ProviderActiveStart: November 21, 2024 End: November 21, 2024 Team Status: Active Member Role Status Dates Gay De La Torre EDUCATION ANALYST-C Primary Care Provider Active Start: November 22, 2024 Bill Lylesending ProviderActiveStart: November 22, 2024 Team Status: Active Member Role Status Mark Salomon MD Primary Care Provider Active Team Status: Inactive Member Role Status Mark Salmoon MD Primary Care Provider Active Start: September 22, 2023 End: September 22, 2023Zarina Cerda ProviderActiveStart: September 22, 2023 End: September 22, 2023 Team Status: Inactive Member Role Status Mark Salomon MD Primary Care Provider Active Start: October 20, 2023 End: October 20, 2023MicZarina Barraza ProviderActiveStart: October 20, 2023 End: October 20, 2023 Team Status: Inactive Member Role Status Mark Salomon MD Primary Care Provider Active Start: November 04, 2023 End: November 04, 2023MicZarina Barraza ProviderActiveStart: November 04, 2023 End: November 04, 2023Team MemberRelationshipSpecialtyStart DateEnd Date Gay De La Torre, STRAP MAKING MACHINE OPERATOR.[employer] [address] [phone] PCP - [facility]10/24/21Team MemberRelationshipSpecialtyStart DateEnd Date Gay De La Torre, STRAP MAKING MACHINE OPERATOR.[employer]ODUCT MARKET[employer] [address] [place] [address] PCP - [facility] [facility] Medicine10/24/21 Manuel Ferris MD [address] [place] [address] ReferringPappas Rehabilitation [facility] For [facility] Medicine02/12/22Team MemberRelationshipSpecialtyStart DateEnd Date Manuel Ferris MD [address] [place] [facility] [place] [place] [address] PCP - GeneralFamily Jqjwigsu59/7/22 Manuel Ferris MD [address] [place] [facility] [place] [address] ReferringFamily Medicine02/12/22Team MemberRelationshipSpecialtyStart DateEnd Date Manuel Ferris MD [address] [place] [facility] [place] [address] PCP - GeneralFamily Wdogprjd52/7/22 Manuel Ferris MD [address] [place] [facility] [place] [address] ReferringFamily Medicine02/12/22Team MemberRelationshipSpecialtyStart DateEnd Date Manuel Ferris MD [address] [place] [facility] [place] [address] PCP - GeneralFamily Lsgyttrq96/7/22 Manuel Ferris MD [address] [place] [facility] [place] [address] ReferringFamily Medicine02/12/22Team MemberRelationshipSpecialtyStart DateEnd Date Manuel Ferris MD [address] [place] [facility] [place] [address] PCP - Generalmily Lsfddsqm66/7/22 Manuel Ferris MD [address] [place] [facility] [place] [address] ReferringFamily Medicine02/12/22Team MemberRelationshipSpecialtyStart DateEnd Date Manuel Ferris MD [address] [place] [facility] [place] [address] PCP - GeneralFamily Ksvqeaox43/7/22 Manuel Ferris MD [address] [place] [facility] [place] [address] ReferringFamily Medicine02/12/22Team MemberRelationshipSpecialtyStart DateEnd Date Manuel Ferris MD [address] [place] [facility] [place] [address] PCP - Generalmily Jggtchtt66/7/22 Manuel Ferris MD [address] [place] [facility] [place] [address] ReferringFami Medicine02/12/22Team MemberRelationshipSpecialtyStart DateEnd Date Manuel Ferris MD [address] [place] [facility] [place] [address] PCP - Generalmily Uhfsnmne38/7/22 Manuel Ferris MD [address] [place] [facility] [place] [address] ReferringFamily Medicine02/12/22Team MemberRelationshipSpecialtyStart DateEnd Date Manuel Ferris MD [address] [place] [facility] [place] [address] PCP - Generalmily Babcmhwk58/7/22 Manuel Ferris MD [address] [place] [facility] [place] [address] ReferringFami Medicine02/12/22Team MemberRelationshipSpecialtyStart DateEnd Date Manuel Ferris MD [address] [place] [facility] [place] [address] PCP - Generalmily Dfjhdmmy08/7/22 Manuel Ferris MD [address] [place] [facility] [place] [address] ReferringFamily Medicine02/12/22Team MemberRelationshipSpecialtyStart DateEnd Date Manuel Ferris MD [address] [place] [address] PCP - GeneralFamily Jdrcaftt74/7/22 Manuel Ferris MD [address] [place] [facility] [place] [address] ReferringFamily Medicine02/12/22Team MemberRelationshipSpecialtyStart DateEnd Date Manuel Ferris MD [address] [place] [facility] [place] [address] PCP - GeneralFami Kxxjjcjf43/7/22 Manuel Ferris MD [address] [place] [facility] [place] [address] ReferringFamily Medicine02/12/22Team MemberRelationshipSpecialtyStart DateEnd Date Manuel Ferris MD [address] [place] [facility] [place] [address] PCP - GeneralFamily Aeqibyun11/7/22 Manuel Ferris MD [address] [place] [facility] [place] [address] ReferringFamily Medicine02/12/22Team MemberRelationshipSpecialtyStart DateEnd Date Manuel Ferris MD [address] [place] [facility] [place] [address] PCP - GeneralFamily Chmqgtnn45/7/22 Manuel Ferris MD [address] [place] [facility] [place] [address] ReferringFamily Medicine02/12/22Team MemberRelationshipSpecialtyStart DateEnd Date Manuel Ferris MD [address] [place] [facility] [place] [address] PCP - Generalmily Davjiwqz88/7/22 Manuel Ferris MD [address] [place] [facility] [place] [address] ReferringFamily Medicine02/12/22Team MemberRelationshipSpecialtyStart DateEnd Date Manuel Ferris MD [address] [place] [facility] [place] [address] PCP - GeneralFamily Pxwqxqdb40/7/22 Manuel Ferris MD [address] [place] [address] ReferringFamily Medicine02/12/22Team MemberRelationshipSpecialtyStart DateEnd Date Manuel Ferris MD [address] [place] [facility] [place] [address] PCP - Generalmily Bmpxdnuq78/7/22 Manuel Ferris MD [address] [place] [facility] [place] [address] ReferringFamily Medicine02/12/22Team MemberRelationshipSpecialtyStart DateEnd Date Manuel Ferris MD [address] [place] [facility] [place] [address] PCP - Generalmily Mrsuaupb47/7/22 Manuel Ferris MD [address] [place] [facility] [place] [address] ReferringFamily Medicine02/12/22Team MemberRelationshipSpecialtyStart DateEnd Date Manuel Ferris MD [address] [place] [facility] [place] [address] PCP - GeneralFamily Lqpzxzwc73/7/22 Manuel Ferris MD [address] [place] [facility] [place] [address] ReferringFamily Medicine02/12/22Team MemberRelationshipSpecialtyStart DateEnd Date Manuel Ferris MD [address] [place] [facility] [place] [address] PCP - GeneralFamily Ngrwqkim09/7/22 Manuel Ferris MD [address] [place] [facility] [place] [address] ReferringFamily Medicine02/12/22Team MemberRelationshipSpecialtyStart DateEnd Date Manuel Ferris MD [address] [place] [facility] [place] [address] PCP - GeneralFamily Bgbjiteq63/7/22 Manuel Ferris MD [address] [place] [facility] [place] [address] ReferringFamily Medicine02/12/22Team MemberRelationshipSpecialtyStart DateEnd Date Manuel Ferris MD [address] [place] [facility] [place] [address] PCP - GeneralFamily Iuytbkiy55/7/22 Manuel Ferris MD [address] [place] [facility] [place] [address] ReferringFamily Medicine02/12/22Team MemberRelationshipSpecialtyStart DateEnd Date Manuel Ferris MD PCP - GeneralFamily Rwqoymyh07/7/22 Manuel Ferris MD ReferringFamily Medicine02/12/22Team MemberRelationshipSpecialtyStart DateEnd Date Manuel Ferris MD PCP - Generalmily Fsjlqdxi91/7/22 Manuel Ferris MD ReferringFamily Medicine02/12/22Team MemberRelationshipSpecialtyStart DateEnd Date Manuel Ferris MD PCP - Generalmily Uhopitig70/7/22 Manuel Ferris MD Referringmily Medicine02/12/22Team MemberRelationshipSpecialtyStart DateEnd Date Manuel Ferris MD PCP - Generalmily Vbhtxlog99/7/22 Manuel Ferris MD Referringmily Medicine02/12/22Team MemberRelationshipSpecialtyStart DateEnd Date Manuel Ferris MD PCP - Generalmily Gwrdbctk66/7/22 Manuel Ferris MD Referringmily Medicine02/12/22Team MemberRelationshipSpecialtyStart DateEnd Date Manuel Ferris MD PCP - Generalmily Pbizuvfs91/7/22 Manuel Ferris MD ReferringFamily Medicine02/12/22Team MemberRelationshipSpecialtyStart DateEnd Date Manuel Ferris MD PCP - GeneralFamily Hcgujbsq85/7/22 Manuel Ferris MD ReferringFamily Medicine02/12/22Team MemberRelationshipSpecialtyStart DateEnd Date Manuel Ferris MD PCP - Generalmily Etgmwjoh81/7/22 Manuel Ferris MD ReferringFamily Medicine02/12/22Team MemberRelationshipSpecialtyStart DateEnd Date Manuel Ferris MD PCP - GeneralFamily Jetamfzv47/7/22 Manuel Ferris MD ReferringFamily Medicine02/12/22Team MemberRelationshipSpecialtyStart DateEnd Date Manuel Ferris MD PCP - Generalmily Cwfovwpl78/7/22 Manuel Ferris MD Referringmily Medicine02/12/22Team MemberRelationshipSpecialtyStart DateEnd Date Manuel Ferris MD PCP - GeneralFamily Hadfgfqz94/7/22 Manuel Ferris MD ReferringFamily Medicine02/12/22Team MemberRelationshipSpecialtyStart DateEnd Date Manuel Ferris MD PCP - Generalmily Jsmgvapi41/7/22 Manuel Ferris MD ReferringFamily Medicine02/12/22Team MemberRelationshipSpecialtyStart DateEnd Date Manuel Ferris MD PCP - GeneralFamily Xixraeqt57/7/22 Manuel Ferris MD ReferringFamily Medicine02/12/22Team MemberRelationshipSpecialtyStart DateEnd Date Manuel Ferris MD PCP - GeneralFamily Ispyhybq30/7/22 Manuel Ferris MD ReferringFamily Medicine02/12/22Team MemberRelationshipSpecialtyStart DateEnd Date Manuel Ferris MD PCP - Generalmily Bawwhljt54/7/22 Manuel Ferris MD ReferringFamily Medicine02/12/22Team MemberRelationshipSpecialtyStart DateEnd Date Manuel Ferris MD PCP - GeneralFamily Otckzvpo57/7/22 Manuel Ferris MD ReferringFamily Medicine02/12/22Team MemberRelationshipSpecialtyStart DateEnd Date Manuel Ferris MD PCP - GeneralFamily Xietumiq17/7/22 Manuel Ferris MD ReferringFamily Medicine02/12/22Team MemberRelationshipSpecialtyStart DateEnd Date Manuel Ferris MD PCP - GeneralFamily Sgywsmxr01/7/22 Manuel Ferris MD ReferringFamily Medicine02/12/22Team MemberRelationshipSpecialtyStart DateEnd Date Manuel Ferris MD PCP - GeneralFamily Njhovnnb84/7/22 Manuel Ferris MD ReferringFamily Medicine02/12/22Team MemberRelationshipSpecialtyStart DateEnd Date Manuel Ferris MD PCP - GeneralFamily Neudkdlt63/7/22 Manuel Ferris MD ReferringFamily Medicine02/12/22Team MemberRelationshipSpecialtyStart DateEnd Date Manuel Ferris MD PCP - GeneralFamily Rotrretk73/7/22 Manuel Ferris MD ReferringFamily Medicine02/12/22Team MemberRelationshipSpecialtyStart DateEnd Date Manuel Ferris MD PCP - GeneralFamily Ukoybzjr60/7/22 Manuel Ferris MD ReferringFamily Medicine02/12/22Team MemberRelationshipSpecialtyStart DateEnd Date [facility] Pexrlbxc11/[facility]/22 Manuel Ferris MD Referringmily Medicine02/12/22Team MemberRelationshipSpecialtyStart DateEnd Date [facility] Zlazuryw71/[facility]/22 Manuel Ferris MD ReferringMad[facility] Systemly Medicine02/12/22Team MemberRelationshipSpecialtyStart DateEnd Date Manuel Ferris MD PCP - [facility] Aohjilhi81/7/22 Manuel Ferris MD ReferringP[facility] Medicine02/12/22Team MemberRelationshipSpecialtyStart DateEnd Date Manuel Ferris MD PCP - [facility] Nebqasra19/7/22 Manuel Ferris MD ReferringP[facility] Medicine02/12/22Team MemberRelationshipSpecialtyStart DateEnd Date Charles Nicole DO [address] [place] [address] PCP - General10/22/18 Michelle Jasmine, 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 [employer] [address] [facility] [address] [place] [address] Nurse PractitionerCardiology06/08/23Team MemberRelationshipSpecialtyStart DateEnd Date Britt Gay Jane, 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 [employer] [address] [place] [address] PCP - General07/13/23 Michelle Jasmine, 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 [employer] [address] [facility] [address] [place] [address] Nurse PractitionerCardiology06/08/23 Aurora Patel MD [address] [facility] [address] [place] [address] Consulting PhysicianCardiology06/23/23Team MemberRelationshipSpecialtyStart Date End Date Manuel Ferris MD PCP - GeneralFamily Vyajcrqq69/7/22 Manuel Ferris MD ReferringFamily Medicine02/12/22Team MemberRelationshipSpecialtyStart DateEnd Date Manuel Ferris MD PCP - GeneralFamily Lppcircw49/7/22 Manuel Ferris MD ReferringFamily Medicine02/12/22 Team Status: Active Member Role Status Dates Lui Salomon MD Primary Care Provider Active Start: July 28, 2023 Virgil Green MDAttchristopher ProviderActiveStart: July 28, 2023 Team MemberRelationshipSpecialtyStart DateEnd Date Manuel Ferris MD PCP - [facility]Mad[facility]ly Scuoatyn16/7/22 Manuel Ferris MD ReferringP[facility] Medicine02/12/22 Team Status: Inactive Member Role Status Dates Lui Salomon MD Primary Care Provider Active Start: December 16, 2023 End: December 16, 2023Michaesurya Baer MDAttchristopher ProviderActiveStart: December 16, 2023 End: December 16, 2023Team MemberRelationshipSpecialtyStart DateEnd Date Manuel Ferris MD PCP - [facility] Rwqwtezk59/7/22 Manuel Ferris MD ReferringP[facility] Medicine02/12/22Team MemberRelationshipSpecialtyStart DateEnd Date Manuel Ferr[facility] Oxjpexyi91/7/22 Manuel Ferris MD ReferringMadison County [facility] Systemly Medicine02/12/22Team MemberRelationshipSpecialtyStart DateEnd Date Manuel Ferris MD PCP - GeneralMad[facility]ly Tchtetes26/7/22 Manuel Ferris MD ReferringP[facility] Medicine02/12/22Team MemberRelationshipSpecialtyStart DateEnd Date Manuel Ferris MD PCP - [facility]02/27/[address] [facility]02/12/22 Team Status: Inactive Member Role Status Dates Lui Salomon MD Primary Care Provider Active Start: January 28, 2024 End: January 28, 2024Adolfo Kang MDAttending ProviderActiveStart: January 28, 2024 End: January [address]referring ProviderActiveStart: January 28, 2024 End: January 28, 2024 Team Status: Inactive Member Role Status Dates Adolfo Kang MD Attending Provider Active Sta rt: February 16, 2024 End: February 15kendrick De La Torre EDUCATION ANALYST-CPrimary Care ProviderActive Start: February 16, 2024 End: February 16, 2024 Team Status: Active Member Role Status Dates Adolfo Kang MD Attending Provider, Other Provider Active Start: February 16, 2024 Gay De La Torre EDUCATION ANALYST-CPrimary Care ProviderActiveStart: February 16, 2024 Team Status: Inactive Member Role Status Dates Adolfo Kang MD Attending Provider Active Sta rt: February 28, 2024 End: February 27kendrick De La Torre , EDUCATION ANALYST-CPrimary Care ProviderActiveStart: February 28, 2024 End: February 28, 2024Team MemberRelationshipSpecialtyStart DateEnd Date Charles Nicole MD [address] [place] [address] PCP - [facility]02/09/24 Team Status: Inactive Member Role Status Dates Gay De La Torre , EDUCATION ANALYST-C Primary Care Provider Active Start: March 16, 2024 End: March 16Luiz Park ProviderActiveStart: March 16, 2024 End: March 16, 2024Team MemberRelationshipSpecialtyStart DateEnd Charles Nicole MD [address] [place] [address] PCP - GeneralFamily Medicine02/09/24Team MemberRelationshipSpecialtyStart DateEnd Date Charles Nicole MD [address] [facility] [place] [address] PCP - GeneralFamily Medicine02/09/24Team MemberRelationshipSpecialtyStart Charles Quiros MD [address] [place] [address] PCP - GeneralFamily Medicine02/09/24Team MemberRelationshipSpecialtyStart [facility] Charles Nicole MD [address] [place] [place] [address] PCP - GeneralFamily Medicine02/09/24Team MemberRelationshipSpecialtyStart [facility] Charles Nicole MD [address] [place] [address] PCP - GeneralFamily Medicine02/09/24Team MemberRelationshipSpecialtyStart [facility] Manuel Ferris MD PCP - GeneralFamily Uhlghzfe41/7/22 Manuel Ferris MD ReferringFamily Medicine02/12/22Team MemberRelationshipSpecialtyStart Charles Quiros MD [address] [place] [address] PCP - GeneralFamily Medicine02/09/24Team MemberRelationshipSpecialtyStart Charles Quiros MD [address] [facility] [place] [address] PCP - GeneralFamily Medicine02/09/24Team MemberRelationshipSpecialtyStart DateEnd Date Charles Nicole MD [address] [place] [address] PCP - GeneralFamily Medicine02/09/24Team MemberRelationshipSpecialtyStart DateEnd [facility] Charles Nicole MD [address] [place] [address] PCP - GeneralFamily Medicine02/09/24Team MemberRelationshipSpecialtyStart DateEnd Date Manuel Ferris MD PCP - GeneralFamily Keotiovv03/7/22 Manuel Ferris MD ReferringFamily Medicine02/12/22Team MemberRelationshipSpecialtyStart DateEnd Charles Nicole MD [address] [place] [address] PCP - GeneralFamily Medicine02/09/24Team MemberRelationshipSpecialtyStart DateEnd Date Manuel Ferris MD PCP - GeneralFamily Mkbnegri12/7/22 Manuel Ferris MD ReferringFamily Medicine02/12/22Team MemberRelationshipSpecialtyStart DateEnd Date Manuel Ferris MD PCP - GeneralFamily Qistlcuw58/7/22 Manuel Ferris MD ReferringFamily Medicine02/12/22Team MemberRelationshipSpecialtyStart DateEnd Date Charles Nicole MD [address] [place] [address] PCP - GeneralFamily Medicine02/09/24Team MemberRelationshipSpecialtyStart DateEnd Date Manuel Ferris MD PCP - [facility] Dpzaeqty77/7/22 Manuel Ferris MD ReferringP[facility] Medicine02/12/22 Manuel Ferris MD [address] [place] [address] ReferringP[facility] Medicine07/06/24 Team Status: Inactive Member Role Status Dates Gay De La Torre EDUCATION ANALYST-C Primary Care Provider Active Start: July 10, 2024 End: July 10, 2024Adolfo Kang MDAttchrsitopher ProviderActiveStart: July 10, 2024 End: July 10, 2024Team MemberRelationshipSpecialtyStart DateEnd Date Manuel Ferris MD PCP - [facility] Wxoudhkk77/7/22 Manuel Ferris MD ReferringFamily Medicine02/12/22 Manuel Ferris MD [address] [place] [address] ReferringFamily Medicine07/06/24Team MemberRelationshipSpecialtyStart DateEnd Date Manuel Ferris MD PCP - Generalmily Klixhqjp88/7/22 Manuel Ferris MD ReferringFamily Medicine02/12/22 Manuel Ferris MD [address] [place] [address] [facility]07/06/24 Team Status: Inactive Member Role Status Dates Gay De La Torre EDUCATION ANALYST-C Primary Care Provider Active Start: July 19, 2024 End: July 19, 2024ana Kang MDAttending ProviderActiveStart: July 19, 2024 End: July 19, 2024Team MemberRelationshipSpecialtyStart DateEnd Date Gay De La Torre MD [facility] [place] [id number] Referring [facility]07/18/24Team MemberRelationshipSpecialtyStart DateEnd Manuel Ferris MD PCP - [facility] Qfvyyxcz42/7/22 Manuel Ferris MD ReferringFami Medicine02/12/22 Manuel Ferris MD [address] [place] [address] [facility]erring[facility]07/06/24Team MemberRelationshipSpecialtyStart DateEnd Date Gay De La Torre MD [address] [place], [place] [id number] Referring PhysicianFamily Medicine07/18/24Team MemberRelationshipSpecialtyStart DateEnd Date Gay De La Torre 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 [employer] [address] [place] [address] PCP - General07/13/23 Michelle Jasmine, 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 [employer] Nurse PractitionerCardiology06/08/23 Aurora Patel MD Consulting PhysicianCardiology06/23/23 Team Status: Active Member Role Status Dates Gay De La Torre EDUCATION ANALYST-C Primary Care Provider Active Start: July 19, 2024 Adolfo Kang MDAttending Provider, Other ProviderActiveStart: July 19, 2024 Team Status: Inactive Member Role Status Dates Gay De La Torre EDUCATION ANALYST-C Primary Care Provider Active Start: July 31, 2024 End: July 31, 2024Adolfo Kang MDAttchristopher ProviderActiveStart: July 31, 2024 End: July 31, 2024Team MemberRelationshipSpecialtyStart DateEnd Manuel Ferris MD PCP - GeneralFamily Zhozrnte84/7/22 Manuel Ferris MD ReferringFamily Medicine02/12/22 Manuel Ferris MD [address] [place] [address] ReferringFamily Medicine07/06/24Team MemberRelationshipSpecialtyStart DateEnd Date Manuel Ferris MD PCP - Generalmi Duayrqdq28/7/22 Manuel Ferris MD ReferringP[facility] Medicine02/12/22 Manuel Ferris MD [address] [place] [address] [facility]erring[facility]07/06/24Team MemberRelationshipSpecialtyStart DateEnd Date Manuel Ferris MD PCP - [facility]02/27/22 Manuel Ferris MD [facility]erring[facility]02/12/22 Manuel Ferris MD [address] [place] [address] [facility]07/06/24 Team Status: Inactive Member Role Status Dates Gay De La Torre EDUCATION ANALYST-C Primary Care Provider Active Start: August 22, 2024 End: August 22, 2024Shana Kang MDAttchristopher ProviderActiveStart: August 22, 2024 End: August 22, 2024Team MemberRelationshipSpecialtyStart DateEnd Date Gay De La Torre MD [address] [place] [address] Referring [facility]07/18/24Team MemberRelationshipSpecialtyStart DateEnd Date Manuel Ferris MD PCP - [facility] Lipibczd24/7/22 Manuel Ferris MD ReferringFamily Medicine02/12/22 Manuel Ferris MD [address] [place] [address] ReferringFamily Medicine07/06/24Te MemberRelationshipSpecialtyStart DateEnd Date Manuel Ferris MD PCP - Generalmily Dthojpkq91/7/22 Manuel Ferris MD ReferringFamily Medicine02/12/22 Manuel Ferris MD [address] [place] [address] [facility]erringF[facility] Medicine07/06/24Team MemberRelationshipSpecialtyStart DateEnd Date Gay De La Torre MD [address] [place] [address] Referring PhysicianPappas Rehabilitation [facility] Medicine07/18/24Team MemberRelationshipSpecialtyStart DateEnd Date Gay De La Torre MD [address] [place] [address] Referring PhysicianPappas [facility] Medicine07/18/24Team MemberRelationshipSpecialtyStart DateEnd Date Manuel Ferris MD PCP - Generalmily Gipbhuvk49/7/22 Manuel Ferris MD ReferringFamily Medicine02/12/22 Manuel Ferris MD [address] [place] [address] ReferringFamily Medicine07/06/24Team MemberRelationshipSpecialtyStart DateEnd Date Manuel Ferris MD PCP - GeneralFamily Henwlfnq78/7/22 Manuel Ferris MD ReferringFamily Medicine02/12/22 Manuel Ferris MD [address] [place] [facility] [place] [address] ReferringFamily Medicine07/06/24Te MemberRelationshipSpecialtyStart DateEnd Manuel Ferris MD PCP - GeneralFamily Dgqizdku57/7/22 Manuel Ferris MD ReferringFamily Medicine02/12/22 Manuel Ferris MD [address] [place] [address] ReferringFamily Medicine07/06/24Team MemberRelationshipSpecialtyStart DateEnd Manuel Ferris MD PCP - GeneralFamily Ffuqaull45/7/22 Manuel Ferris MD ReferringFamily Medicine02/12/22 Manuel Ferris MD [address] [place] [facility] [place] [address] ReferringFamily Medicine07/06/24Team MemberRelationshipSpecialtyStart DateEnd Date Manuel Ferris MD PCP - Generalmily Bxvhegxf39/7/22 Manuel Ferris MD ReferringFamily Medicine02/12/22 Manuel Ferris MD [address] [place] [address] Referringmily Medicine07/06/24Team MemberRelationshipSpecialtyStart DateEnd Date Manuel Ferris MD PCP - Generalmily Ehwmciun88/7/22 Manuel Ferris MD ReferringFamily Medicine02/12/22 Manuel Ferris MD [address] [place] [address] [facility]erring[facility]07/06/24Team MemberRelationshipSpecialtyStart DateEnd Date Manuel Ferris MD PCP - [facility]Mad[facility]ly Lnpfiuqf05/7/22 Manuel Ferris MD ReferringFamily Medicine02/12/22 Manuel Ferris MD [address] [place] [address] Referringmily Medicine07/06/24Team MemberRelationshipSpecialtyStart DateEnd Date Manuel Ferris MD PCP - GeneralFamily Buztfpea03/7/22 Manuel Ferris MD ReferringFamily Medicine02/12/22 Manuel Ferris MD [address] [place] [address] ReferringFamily Medicine07/06/24Team MemberRelationshipSpecialtyStart DateEnd Date Manuel Ferris MD PCP - GeneralFamily Qlivwmln76/7/22 Manuel Ferris MD ReferringFamily Medicine02/12/22 Manuel Ferris MD [address] [place] [address] [facility]erringP[facility] Medicine07/06/24Team MemberRelationshipSpecialtyStart DateEnd Date Manuel Ferris MD PCP - GeneralFamily Okxasdyq40/7/22 Manuel Ferris MD ReferringFamily Medicine02/12/22 Manuel Ferris MD [address] [place] [address] ReferringFamily Medicine07/06/24Team MemberRelationshipSpecialtyStart DateEnd Date Manuel Ferris MD PCP - Generalmily Exdhagvm68/7/22 Manuel Ferris MD ReferringFami Medicine02/12/22 Manuel Ferris MD [address] [place] [address] [facility]erring[facility]07/06/24Team MemberRelationshipSpecialtyStart DateEnd Date Manuel Ferris MD [facility] - [facility] Oskrwjkm56/7/22 Manuel Ferris MD ReferringCol[facility]02/12/22 Manuel Ferris MD [address] [place] [address] ReferringCol[facility]07/06/24Team MemberRelationshipSpecialtyStart DateEnd Manuel Ferris MD PCP - [facility]02/27/22 Manuel Ferris MD ReferringP[facility] Medicine02/12/22 Manuel Ferris MD [address] [place] [address] [facility]07/06/24 Team Status: Inactive Member Role Status Dates Gay De La Torre , EDUCATION ANALYST-C Primary Care Provider Active Start: September 06, 2024 End: September 06, 2024Adolfo Kang MDAttending ProviderActiveStart: September 06, 2024 End: September 06, 2024 Team Status: Inactive Member Role Status Dates Gay De La Torre NP-C Primary Care Provider Active Start: November 13, 2024 End: November 13, 2024Adolfo Kang MDAttchristopher ProviderActiveStart: November 13, 2024 End: November 13, 2024Team MemberRelationshipSpecialtyStart DateEnd Date Gay De La Torre MD [address] [place] [address] Referring [facility]07/18/24Team MemberRelationshipSpecialtyStart DateEnd Date Manuel Ferris MD PCP - [facility] Vgodqkrw78/7/22 Manuel Ferris MD ReferringPappas [facility] Medicine02/12/22 Manuel Ferris MD [address] [place] [address] [facility]erringCol[facility]07/06/24Team MemberRelationshipSpecialtyStart End Date Manuel Ferris MD PCP - [facility] Obfb[facility]ee21/7/22 Manuel Ferris MD Referringmi Medicine02/12/22 Manuel Ferris MD [address] [place] [address] ReferringCol[facility]07/06/24Team MemberRelationshipSpecialtyStart DateEnd Date Manuel Ferris MD PCP - [facility] Twibopcs93/7/22 Manuel Ferris MD ReferringPappas [facility] Medicine02/12/22 Manuel Ferris MD [facility] [place] [address] ReferringCol[facility]07/06/24 Team Status: Inactive Member Role Status Dates Gay De La Torre NP-C Primary Care Provider Active Start: January 31, 2025 End: January 31, 2025Shana Kang MDAttending ProviderActiveStart: January 31, 2025 End: January 31, 2025Team MemberRelationshipSpecialtyStart DateEnd Date Gay De La Torre MD [address] [place] [id number] Referring [facility]07/18/24Team MemberRelationshipSpecialtyStart DateEnd Date Gay De La Torre MD [address] [place] [phone] Referring [facility]07/18/24Team MemberRelationshipSpecialtyStart DateEnd Date Gay De La Torre MD [address] [place] [id number] Referring [facility]07/18/24 Team Status: Inactive Member Role Status Dates Terence Blum MD Attending Provider Active Sta rt: March 02, 2025 End: March 02, 2025Pafrancesco De La Torre NP-CPrimary Care ProviderActiveStart: March 02, 2025 End: March 02, 2025Team MemberRelationshipSpecialtyStart DateEnd Date Gay De La Torre MD [address] [place] [id number] Referring [facility]07/18/24 Team Status: Inactive Member Role Status Dates Jose Perez DO Attending Provider Active S tart: March 03, 2025 End: March 03, 2025 Team Status: Inactive Member Role/Relationship Status Dates Gay De La Torre , EDUCATION ANALYST-C Primary Care Provider Active Start: December 12, 2024 End: December 12, 2024Luiz Gee ProviderActiveStart: December 12, 2024 End: December 12, 2024 Team Status: Inactive Member Role/Relationship Status Dates Gay De La Torre , EDUCATION ANALYST-C Primary Care Provider Active Start: January 17, 2025 End: January 17, 2025Pefrank Arnett NPAttending ProviderActiveStart: January 17, 2025 End: January 17, 2025 Team Status: Active Member Role/Relationship Status Dates Gay De La Torre , EDUCATION ANALYST-C Primary Care Provider Active Start: January 31, 2025 Bill Pickeringending ProviderActiveStart: January 31, 2025 Adolfo Kang MDOther ProviderActiveStart: January 31, 2025 Team Status: Inactive Member Role/Relationship Status Dates Gay De La Torre EDUCATION ANALYST-C Primary Care Provider Active Start: February 14, 2025 End: February 14, 2025Pefrank Arnett NPAttending ProviderActiveStart: February 14, 2025 End: February 14, 2025 Team Status: Inactive Member Role/Relationship Status Dates Mathew Ji MD Attending Provider Active St art: February 26, 2025 End: February 26, 2025 Team Status: Inactive Member Role/Relationship Status Dates Bandar Portillo APRN Attending Provider Active Start: February 28, 2025 End: February 28, 2025Pafrancesco De La Torre , EDUCATION ANALYST-CPrimary Care ProviderActiveStart: February 28, 2025 End: February 28, 2025 Team Status: Inactive Member Role/Relationship Status Dates Terence Blum MD Attending Provider Active Sta rt: March 02, 2025 End: March 02, 2025Pafrancesco De La Torre , EDUCATION ANALYST-CPrimary Care ProviderActiveStart: March 02, 2025 End: March 02, 2025 Team Status: Inactive Member Role/Relationship Status Dates Jose D Katko , DO Attending Provider Active S tart: March 03, 2025 End: March 03, 2025 Team Status: Inactive Member Role/Relationship Status Dates WALESKA Galloway Attending Provider Active Start: March 09, 2025 End: March 09, 2025 Team Status: Active Member Role/Relationship Status Dates NON STAFF Primary Care Provider Active Team Status: Inactive Member Role/Relationship Status Dates Adolfo Kang MD Attending Provider Active Sta rt: March 13, 2025 End: March 13, 2025NON STAFFPrima Care ProviderActiveStart: March 13, 2025 End: March 13, 2025 Inactive Administered Medications - up to 3 most recent administrations Administered Medications (un recognized section and content) Medication OrderMAR ActionAction DateDoseRateSite cyanocobalamin 1,000 mcg injection 1,000 mcg, INTRAMUSCULAR, ONCE, 1 dose, On Wed07/13/23 at 1200 Given07/13/2023 12:00 PM EST1,000 mcgDeltoid, RightMedication OrderMAR Action Action DateDoseRateSite cyanocobalamin 1,000 mcg injection 1,000 mcg, INTRAMUSCULAR, ONCE, 1 dose, On Wed08/05/23 at 1130 Given08/05/2023 11:30 AM EDT1,000 mcgDeltoid, RightMedication OrderMAR Action Action DateDoseRateSite cyanocobalamin 1,000 mcg injection 1,000 mcg, INTRAMUSCULAR, ONCE, 1 dose, On Wed08/31/23 at 1030 Given08/31/2023 10:30 AM EDT1,000 mcgDeltoid, Right Goals (unrecognized section and content) Goals [...] BE BASED ON THE PRIMARY CLINICAL RECORDS. frents [facility]. provides no warranty or guarantee of the accuracy or completeness of information in this document.
== END 2025-03-10 | disposition home or self-care (01) ==
PROVIDERS: PCP Nurse Practitioner Family; Visit Provider Anesthesiology
DX: M54.89 Other dorsalgia (principal)
CPT/HCPCS: 72072

== ENCOUNTER 2025-03-13 04:43 | Outpatient (RCR) | payer OTHER, SELFPAY ==
[2025-03-06 16:46] VITALS: BP 121/69; PULSE 91; TEMP 36.8; O2SAT 95
[2025-03-06] MEDS: CEFTAZIDIME 1,000 MG in 0.9 % SODIUM CHLORIDE 50 ML 100 MG IV (16:54)
[2025-03-07 05:12] VITALS: BP 121/84; PULSE 92; TEMP 36.5; O2SAT 95
[2025-03-07] MEDS: CEFTAZIDIME 1,000 MG in 0.9 % SODIUM CHLORIDE 50 ML 100 MG IV ×2 (05:14→16:47)
[2025-03-07 16:37] VITALS: BP 131/86; PULSE 109; TEMP 37.2
[2025-03-08 04:42] VITALS: BP 142/55; PULSE 89; TEMP 36.4; O2SAT 95
[2025-03-08] MEDS: CEFTAZIDIME 1,000 MG in 0.9 % SODIUM CHLORIDE 50 ML 100 MG IV ×2 (04:44→16:50)
[2025-03-08 16:42] VITALS: BP 105/67; PULSE 85; TEMP 37; O2SAT 94
[2025-03-09] MEDS: CEFTAZIDIME 1,000 MG in 0.9 % SODIUM CHLORIDE 50 ML 100 MG IV ×2 (04:59→16:55)
[2025-03-09 05:46] VITALS: PULSE 104; TEMP 36.9; O2SAT 95
[2025-03-09 16:52] VITALS: BP 129/82; PULSE 106; TEMP 36.4; O2SAT 96
[2025-03-10] MEDS: CEFTAZIDIME 1,000 MG in 0.9 % SODIUM CHLORIDE 50 ML 100 MG IV ×2 (04:38→16:42)
[2025-03-10 04:42] VITALS: BP 159/83; PULSE 93; TEMP 36.3; O2SAT 95
[2025-03-10 16:35] VITALS: BP 121/50; PULSE 94; TEMP 36.6; O2SAT 95
[2025-03-11 04:47] VITALS: BP 140/86; PULSE 92; TEMP 36.7; O2SAT 95
[2025-03-11] MEDS: CEFTAZIDIME 1,000 MG in 0.9 % SODIUM CHLORIDE 50 ML 100 MG IV ×2 (04:52→17:47)
[2025-03-11 05:32] VITALS: BP 127/82; PULSE 76; TEMP 36.4; O2SAT 96
[2025-03-11 16:49] VITALS: BP 137/80; PULSE 93; TEMP 36.3; O2SAT 94
[2025-03-12 04:42] VITALS: BP 130/74; PULSE 89; TEMP 36.6; O2SAT 96
[2025-03-12] MEDS: CEFTAZIDIME 1,000 MG in 0.9 % SODIUM CHLORIDE 50 ML 100 MG IV ×2 (04:53→17:00)
[2025-03-12 16:53] VITALS: BP 112/72; PULSE 78; TEMP 36.9; O2SAT 95
[2025-03-13 07:27] VITALS: BP 142/72; PULSE 80; TEMP 37.3; O2SAT 97
[2025-03-13] MEDS: CEFTAZIDIME 1,000 MG in 0.9 % SODIUM CHLORIDE 50 ML 100 MG IV (07:31)
== END 2025-03-23 23:59 | disposition home or self-care (01) ==
LOC: INF 04:43
PROVIDERS: PCP Nurse Practitioner Family; Visit Provider Internal Medicine Hematology & Oncology
DX: L05.01 Pilonidal cyst with abscess (principal)
CPT/HCPCS: 96365; 96366; 96374; J0713

== ENCOUNTER 2025-03-22 08:45 | Outpatient (OUT) | payer OTHER, SELFPAY ==
--- NOTE | 2025-03-22 08:57 | CT_ITS ---
The [address] [address] Patient Name: JONES HALEY MRN: [id number] date: 1980 Sex: F Assigned Patient Location: CT Current Patient Location: [facility] Accession/Order Number: [id number] Exam Date: 03/22/2025 10:05 Report Date: 03/22/2025 13:02 At the request of: INGRID MARTIN NP Procedure: CT abdomen w con CT ABDOMEN WITH CONTRAST CLINICAL DATA: Chronic upper abdominal pain and pressure. COMPARISON: 12/05/2023 Spiral images were obtained through the abdomen following oral and 100 mL of Omnipaque 300. This CT exam was performed using one or more following dose reduction techniques: Automated exposure control, adjustment of the mA and/or kV according to patient size, or use of iterative reconstruction technique. Limited cuts through the lung bases show no contributory findings. There is fatty infiltration of the liver. No calcified gallstones are identified. The spleen, pancreas and adrenal glands show no acute findings. There are symmetric renal nephrograms, without hydronephrosis. Tiny renal cysts are again visualized. The abdominal aorta is normal caliber. No enlarged lymph nodes or ascites are noted. The small bowel loops are normal caliber. There is is a small amount of colonic stool. There are segments of colon which are under distended and have apparent wall thickening. The bony structures are intact. There are tiny endplate spurs and mild lower lumbar facet disease. CT/CT abdomen w con IMPRESSION: FATTY LIVER. TINY RENAL CYSTS. NO ACUTE INTRA-ABDOMINAL FINDINGS. Impression dictated by: Simin Nelson M.D. 03/22/2025 1:02 PM Dictation Location: [place] [address] Electronically authenticated by: [id number] Y Date: 03/22/2025 13:02
--- OUTSIDE RECORDS SUMMARY | 2025-03-22 09:06 | XMS_ITS | CCD ---
Author Organization [facility] Care Team Providers Care Knocker Out Name Role Phone VICTOR MANUEL GUZMAN Referring Unavailable Unavailable Primary Care Provider JONAS Lynne Referring Unavailable Britt WEATHER TEACHER.TRUE, Gay Primary Care Provider [phone] Mirela Baer Unavailable Britt WEATHER TEACHER.BIRD SITTER, Gay Primary Care Provider Manuel Ferris MD Unavailable Manuel Ferris MD Primary Care Provider Manuel Ferris MD Unavailable Manuel Ferris MD Primary Care Provider [phone] Manuel Ferris MD Unavailable Manuel Ferris MD Primary Care Provider [phone] MANUEL LEYVA Primary Care Unavailable [...] Unavailable HOY ., DR BURKETT Attending Unavailable JOSY ., DR BURKETT Admitting Unavailable BUFFY, DR DIETZ Consulting Unavailable BUFFY, DR DIETZ Attending Unavailable BUFFY, DR DIETZ Admitting Unavailable GAY DE LA TORRE Primary Care Unavailable BUFFY, DR DIETZ Consulting Unavailable BLANK, DR DIETZ Attending Unavailable BLANK, DR DIETZ Admitting Unavailable HOY ., DR BURKETT Primary Care Unavailable TEMO ., OLY Attending Unavailable TEMO ., OLY Admitting Unavailable [place], DR UARORA Pacheco Consulting Unavailable HOY ., DR BURKETT [...] Primary Care Provider UnavailAurora Carney MD Unavailable Birtt TABOR Gay S Primary Care Provider Manuel Ferris MD Primary Care Provider [phone] MD Adolfo Kang Attending Provider CARISSA De La Torre-Ananya Estrada Primary Care Provider Charles Nicole MD Primary Care Provider CALOS ARCE Attending Unavailable Unavailable Primary Care Provider UnavailManuel Calixto MD Unavailable Britt REAL ESTATE OPERATIONS MANAGER-C, Gay Estrada Primary Care Provider [phone] Jorge Luis LEE, Adolfo Jane Attending Provider ALHAJI VICTORIA Attending Unavailable MANUEL FERRIS Primary Care Unavailable ALHAJI VICTORIA Attending Unavailable VAIBHAV CARVALHO Referring Unavailable MANUEL FERRIS M Primary Care Unavailable Gay De La Torre MD Unavailable Mitali TABOR, Michelle London Unavailable Aurora Patel MD Unavailable Gay Workman S Primary Care Provider LOIS HOLM Attending Unavailable BRITT, GAY S Primary Care Unavailable HOLMLOIS Attending Unavailable LOIS HOLM Referring Unavailable BRITT, GAY S Primary Care Unavailable Britt REAL ESTATE OPERATIONS MANAGER-C, Gay Natalie Primary Care Provider Adolfo Kang MD Attending Provider [phone] Britt REAL ESTATE OPERATIONS MANAGER-C, Gay Natalie Primary Care Provider Jorge Luis LEE, Adolfo Jane Attending Provider Arnett REAL ESTATE OPERATIONS MANAGER, Margie Attending Provider [phone] Britt REAL ESTATE OPERATIONS MANAGER-C, Gay Natalie Primary Care Provider Jorge Luis LEE, Adolfo Jane Attending Provider Bandar Portillo APRN Attending Provider Britt REAL ESTATE OPERATIONS MANAGER-C, Gay Natalie Primary Care Provider [phone] Adolfo Kang MD Attending Provider Janes Barfield MD Attending Provider [phone] Adolfo Kang MD Other Provider Britt REAL ESTATE OPERATIONS MANAGER-C, Gay Antalie Primary Care Provider Adolfo Kang MD Attending Provider Mathew Ji MD Attending Provider BERNABE ENGLISH Attending Unavailable GORDO BARFIELD Attending Unavailable MELISSA HUDDLESTON Attending Unavailable OLY PARNELL Referring Unavailable PETBERNABE HOWE Attending Unavailable TERENCE DAY Attending Unavailable BERNABE ENGLISH Referring Unavailable LUAN VALDIVIA Attending Unavailable OLY PARNELL Attending Unavailable MARKY NICHOLS Attending Unavailable GORDO BARFIELD Attending Unavailable BRITT, GAY Referring Unavailable OLY PARNELL Attending Unavailable Britt REAL ESTATE OPERATIONS MANAGER-C, Gay Natalie Primary Care Provider [phone] Melquiades REAL ESTATE OPERATIONS MANAGER, Margie Attending Provider Terence Blum MD Attending Provider Jose Perez DO Attending Provider [phone] Britt REAL ESTATE OPERATIONS MANAGER-C, Gay Natalie Attending Provider Britt REAL ESTATE OPERATIONS MANAGER-C, Gay Estrada Primary Care Provider Bandar Portillo APRN Attending Provider NON STAFF Primary Care Provider UnavailGay Infantee Admitting Unavailable Gay De La Torre Attending Unavailable Jose Perez Admitting Unavailable Jose Perez Attending Unavailable Janes Barfield Admitting Unavailab Janes Quispe Attending Unavailab le Britt, Gay Natalie Primary Care Unavailable Terence Blum Admitting Unavailable Blum Terence Attending Unavailable Britt, Gay Natalie Primary Care Unavailable Jorge Luis, Adolfo S Admitting Unavailable Jorge Luis, Adolfo S Attending Unavailable Britt, Gay Natalie Primary Care Unavailable Jorge Luis, Adolfo S Admitting Unavailable Jorge Luis Adolfo S Attending Unavailable Britt, Gay Natalie Primary Care Unavailable Mathew Ji Admitting Unavailable Mathew Ji Attending Unavailable Gay De La Torre CNP Primary Care Provider GAY DE LA TORRE Primary Care Unavailable SELF, SELF Referring Unavailable TAB MAY Attending Unavailable VAIBHAV CARVALHO Referring Unavailable HOY, MANUEL M Primary Care [...] Unavailable ABHYANKAR, VERA Referring Unavailable ABHYANKAR, VERA Attending Unavailable HOY, MANUEL [...] HOY, MANUEL M Primary Care Unavailable MARKY GASCA Attending Unavailable HOY, MANUEL [...] VERA Referring Unavailable ABHYANKAR, VERA Referring Unavailable HOY, [...] VERA Referring Unavailable DEVEN, VAIBHAV Attending Unavailable ABHYANKAR, VERA Referring Unavailable HOY, [...] Primary Care Unavailable LAST, LYNNE Attending Unavailable ABHYANKAR, VERA Referring Unavailable HOY, MANUEL M Primary Care Unavailable ABHYANKAR, VERA Attending Unavailable HOY, MANUEL M Primary Care Unavailable [place] Referring Unavailable HOY, MANUEL M Primary Care Unavailable LAST, LYNNE Referring Unavailable [place] Attending Unavailable HOY, MANUEL M Primary Care Unavailable HOY, MANUEL M Primary Care Unavailable HOY, MANUEL M Primary Care Unavailable LAST, LYNNE Referring Unavailable Allergies Allergy ClassificationReported Allergen(s)Allergy TypeDate of OnsetReaction(s) FacilityDihydrofolate Reductase Inhibitors (antibiotic) (3 sources)TrimethoprimDrug Fbsxqxi47-08-8089Nrtff: See CommentsRegency Hospital Company Doxycycline (3 sources)DoxycyclineDrug Drkzocg45-81-5752Woqod: See [facility] Latex (3 sources)LatexSubstance Dnhqymh29-59-7914LsuaJvwhbilqz ClinicLincosamides (antibiotic) (3 sources)ClindamycinDrug Ndeaucg07-26-1685SmupymhRkkgobsqb ClinicOpioid Agonists (3 sources)CodeineDrug Jojjilg91-13-8862Mzbbl: See CommentsRegency Hospital Company Sulfamethoxazole / Trimethoprim (4 sources)Sulfamethoxazole / TrimethoprimDrug Gmqsusy27-09-6784BgmiemshIyuzi HealthSulfonamides (antibiotic) (3 sources)SulfamethoxazoleDrug Qvximat57-11-1230Vurmq: See [facility] Work Phone: (20 sources)Codeine; Translations: [CODEINE]Drug Efcvkkd36-36-3854Tovnq: See Comments, Shortness of BreathRegency Hospital Company (20 sources)Latex; Translations: [LATEX]Drug Lcuzrmo67-42-7275HpjgCspbheqzr Clinic (20 sources)Sulfamethoxazole; Translations: [SULFAMETHOXAZOLE]Drug Allergy 86-92-3760SA Upset, Other: See CommentsRegency Hospital Company (20 sources)Clindamycin; Translations: [CLINDAMYCIN]Drug Dsldttg95-01-6205 UnknownRegency Hospital Company (4 sources)Sulfamethoxazole / TrimethoprimDrug AllergyHumboldt General Hospital [employer] Other (20 sources)Doxycycline; Translations: [DOXYCYCLINE]Drug Ndficja31-32-2180Pwwch: See Comments, Other, Unknown, Other (See Comments)[facility] (20 sources)Sulfamethoxazole / Trimethoprim; Translations: [SULFAMETHOXAZOLE-TRIMETHOPRIM]Drug Gsctugf07-26-6608Ashhquzk, Other, GI Disturbance, Other (See Comments), DyspepsiaRegency Hospital Company (20 sources)Trimethoprim; Translations: [TRIMETHOPRIM]Drug Dyiengd01-02-0254 Other: See CommentsRegency Hospital Company (1 source)LatexDrug allergy (disorder)21-53-9655[facility] (1 source)Sulfamethoxazole / TrimethoprimDrug Zlxdtyk16-16-3508CwaEast [facility] (20 sources)SulfamethoxazoleAllergy to turhklqnl24-51-9526[facility] (20 sources)LatexPropensity to adverse pjgvmxuju56-31-4429XhbwRCPA Healthcare (2 sources)Omeprazole; Translations: [OMEPRAZOLE]Drug Clnikvy47-91-8632 [facility] Repository (2 sources)pantoprazole; Translations: [PANTOPRAZOLE]Drug Crvknbs16-04-0201 [facility] Repository (1 source)ClindamycinDrug Mvrdjto58-78-3347EidadmhfqCincinnati [facility] Rep[facility] (1 source)SulfamethoxazoleDrug Bpdbzsz42-79-0606CsyfwagoyCincinnati Children'S Hospital [facility] Repository (1 source)TrimethoprimDrug Nhjmwjs36-27-4850PmtecppqsCincinnati Children'S Hospital [facility] Rep[facility] (1 source)Sulfonamides (Antibiotic)Propensity to adverse reactions to drug 31-51-9018FnlwzibbTpcuoCommunity Regional Medical Center Medications Current Medications MedicationDrug Class(es)DatesSig (Normalized)Sig (Original)acetaminophen 500 mg oral tablet (20 sources)Start: 98-51-6944fzsr 2 tablets by mouth every six hours as needed for painAcetaminophen (Acetaminophen Extra Strength) 500 mg tablet Active 1000 MG PO Every 6 hours as needed for pain January 31, 2025 12:00am Complies with drug therapyStart: 01-24-2025 End: 95-80-3426xyvv 1 dose by mouth once, then take 4000 mg by mouth once daily 650 mg, ORAL, ONCE, 1 dose, On Wed01/24/25 at 0930, No more than 4000 mg of acetaminophen should be given per day (FROM ALL SOURCES)Start: 01-11-2025 End: 27-85-0743kmwb 1 dose by mouth once1,000 mg, ORAL, ONCE, 1 dose, On Wed01/11/25 at 1430Start: 12-14-2024 End: 43-16-9379gift 1 dose by mouth once1,000 mg, ORAL, ONCE, 1 dose, On Wed12/14/24 at 1430Start: 11-29-2024 End: 07-28-6223okxx 1 dose by mouth once, then take 4000 mg by mouth once daily 650 mg, ORAL, ONCE, 1 dose, On Wed11/29/24 at 1000, No more than 4000 mg of acetaminophen should be given per day (FROM ALL SOURCES)Start: 11-16-2024 End: 45-97-5062fyal 1 dose by mouth once1,000 mg, ORAL, ONCE, 1 dose, On Wed11/16/24 at 1400Start: 10-31-2024 End: 38-03-5227xjqu 1 dose by mouth once, then take 4000 mg by mouth once daily 650 mg, ORAL, ONCE, 1 dose, On Wed10/31/24 at 1000, No more than 4000 mg of acetaminophen should begiven per day (FROM ALL SOURCES)Start: 10-19-2024 End: 15-84-0261xexd 1 dose by mouth once1,000 mg, ORAL, ONCE, 1 dose, On Wed10/19/24 at 1430Start: 2024 End: 91-91-9639cnur 1 dose by mouth once1,000 mg, ORAL, ONCE, 1 dose, On Wed10/04/24 at 1430Start: 10-02-2024 End: 48-00-1493nnmh 1 dose by mouth once, then take 4000 mg by mouth once daily 650 mg, ORAL, ONCE, 1 dose, On Wed10/02/24 at 0900, No more than 4000 mg of acetaminophen should begiven per day (FROM ALL SOURCES)Start: 09-18-2024 End: 57-29-3672fvjf 1 dose by mouth once1,000 mg, ORAL, ONCE, 1 dose, On Wed09/18/24 at 1300Start: 09-06-2024 End: 10-93-7570uguj 1 dose by mouth once, then take 4000 mg by mouth once daily 650 mg, ORAL, ONCE, 1 dose, On Wed09/06/24 at 0930, No more than 4000 mg of acetaminophen should begiven per day (FROM ALL SOURCES)Start: 08-08-2024 End: 07-03-0060uauj 1 dose by mouth once, then take 4000 mg by mouth once daily 650 mg, ORAL, ONCE, 1 dose, On Wed08/08/24 at 0930, No more than 4000 mg of acetaminophen should begiven per day (FROM ALL SOURCES)Start: 07-11-2024 End: 73-92-4990caeu 1 dose by mouth once, then take 4000 mg by mouth once daily 650 mg, ORAL, ONCE, 1 dose, On Wed07/11/24 at 0900, No more than 4000 mg of acetaminophen should begiven per day (FROM ALL SOURCES)Start: 06-13-2024 End: 98-63-4372kmxm 1 dose by mouth once, then take 4000 mg by mouth once daily 650 mg, ORAL, ONCE, 1 dose, On Wed06/13/24 at 1000, No more than 4000 mg of acetaminophen should begiven per day (FROM ALL SOURCES)Start: 05-19-2024 End: 06-53-8897fggx 1 dose by mouth once, then take [...] 0 ActiveComment on above:Take 1,000 mg by mouth.acetaminophen 325 mg / HYDROcodone bitartrate 5 mg oral tablet (2 sources)Opioid AgonistStart: 64-05-9913skur 1 tablet by mouth every six hours as neededhydroCODone-acetaminophen 5-325 MG tablet Take 1 tablet by mouth every 6 hours as needed. 02/26/2025 ActiveStart: 68-02-5734mtzk 1 tablet by mouth every six hours as neededhydroCODone-acetaminophen 7.5-325 MG tablet Take 1 tablet by mouth every 6 hours as needed. 01/08/2025 ActiveALPRAZolam 0.25 mg oral tablet (20 sources)BenzodiazepineStart: 06-24-2023 End: 07-40-1529kvsc 1 tablet by mouth once dailyALPRAZolam 0.25 MG tablet Take 1 tablet by mouth daily. 04/28/2024 Activeamoxicillin 875 mg oral tablet (2 sources)Penicillin-class AntibacterialStart: 71-81-3590kltn 1 tablet by mouth every twelve hoursAmoxicillin [...] Inhibitor, Nonsteroidal Anti-inflammatory Drug aspirin 81 MG Chew Tab chewable tablet Chew 1 tablet daily. ActiveComment on above:Take 81 mg by mouth.baclofen 5 mg oral tablet (20 sources)gamma-Aminobutyric Acid-ergic AgonistStart: 02-09-2024 End: 24-15-6275ouxo 1 tablet by mouth at bedtimebaclofen (Lioresal) 5 MG tablet Indications: Lumbosacral radiculopathy at L5 , Degenerative disc disease, lumbar , Cervical radiculopathy at C5 TAKE 1 TABLET BY MOUTH IN THE MORNING, EVENING AND BEFORE BEDTIME 270 tablet 1 03/02/2024 02/28/2025 Discontinued (Therapy completed)cephalexin 500 mg oral capsule (14 sources)Cephalosporin AntibacterialStart: 02-27-2025 End: 36-71-2195ugct 1 capsule by mouth three times dailycephALEXin 500 MG capsule Take 1 capsule by mouth 3 (three) times a day. 02/27/2025 ActiveStart: 06-15-2024 End: 84-97-2935qerd 1 capsule by mouth in the morningcephalexin (Keflex) 500 MG capsule Indications: Cyst, breast, sebaceous, left Take 1 capsule (500 mg) by mouth in the morning and 1 capsule (500 mg) before bedtime. Do all this for 7 days. 14 ppjuase8806/15/2024 06/22/2024 ActiveStart: 09-63-6929haonyqlzfd (Keflex) 500 MG capsule Indications: Postoperative stitch abscess Take 1 tablet twice a day x 7 days 14 capsule 0 01/07/2023 ActiveKeflex Activecetirizine hydrochloride 10 mg oral tablet (4 sources)Histamine-1 Receptor Antagonisttake 1 tablet by mouth once daily Cetirizine 10 MG tablet Take 1 tablet by mouth daily. Active End: 01-04-1039Ofvvixjvkz (ZYRTEC) 10 mg cap Take by mouth. 0 02/25/2022 Discontinued (Course of therapy completed)Comment on above:Take by mouth. Chlorhexidine (20 sources)Start: 11-00-9086Lnojcoqycynen Gluconate 4 % Solution Apply 1 Application topically daily as needed for Other. 07/25/2024 ActiveStart: 17-55-3242Obufiygxaqeka Gluconate (Hibiclens) 4 % solution Indications: Hidradenitis suppurativa Use every day in shower from the neck down to affected areas. 532 mL 11 07/25/2024 ActiveStart: 11-01-2023 End: 15-91-8077Fwaalilkbdpfv Gluconate (Hibiclens) 4 % solution Indications: Hidradenitis suppurativa Apply 1 Application topically Daily LATHER ONTO AFFECTED AREAS ON THE BODY AND RINSE FROM THE NECK DOWN 2 TIMES A WEEK AVOIDING THE FACE. 30 day supply 236 mL 11 03/17/2024 04/16/2024 ActiveStart: 07-15-2023 End: 75-10-8390dqbloovdjjtwl (Hibiclens) 4 % external liquid Indications: Hidradenitis suppurativa Lather onto affected areas on the body and rinse from the neck down, 2 times a week avoiding the face, 30 day supply 118 mL 11 07/15/2023 03/16/2024 Discontinuedclindamycin 10 mg/ml topical lotion (20 sources)Lincosamide AntibacterialStart: 70-85-0290jsydjskpkcz 1 % Lotion lotion Apply 1 Application topically daily. 07/25/2024 ActiveStart: 06-23-2022 End: 10-66-9429enzusnlrptd (Clindagel) 1 % gel Indications: Hidradenitis suppurativa APPLY TO AFFECTED AREA DAILY 75 mL 11 10/06/2023 06/06/2024 Discontinuedclobetasol propionate 0.5 mg/ml medicated shampoo (20 sources)CorticosteroidStart: 53-58-7591Ffdmiyrjkb Propionate 0.05 % Shampoo Apply 1 Application topically 3 times weekly. APPLY TO SCALP IN SHOWER 3 TO 4 TIMES A WEEK 07/25/2024 ActiveStart: 35-03-0369Mludzepbzt 0.05 % shampoo Active 1 APPLIC TOPICAL As Directed October 20, 2023 12:00am Complies with drug therapy Start: 34-19-9524Yhdesbwejj Active TOPICAL October 20, 2023 12:00amStart: 10-23-2022 End: 35-80-1107Dmzjaqncwr Propionate 0.05 % shampoo Indications: Other seborrheic dermatitis 1 application to the scalp in the shower topically 3-4 times a week 236 mL 11 07/25/2024 ActiveclonazePAM 0.5 mg oral tablet (20 sources)BenzodiazepineStart: 89-76-9812hckx 1 tablet by mouth once daily KlonoPIN 0.5 MG tablet Take 1 tablet by mouth daily. 07/31/2024 Active clotrimazole 10 mg oral lozenge (11 sources)Azole AntifungalStart: 27-85-8730ekichernhfnv (MYCELEX) 10 mg christel USE 1 CHRISTEL WHILE ON IMMUNOSUPPRESSIVE MEDICINE BY MOUTH/THROAT 3 TIMES A DAY 10/23/2024 ActiveStart: 31-60-2252tieoqmjmpvic (MYCELEX) 10 mg christel Dissolve 1 Christel in the mouth in the morning and 1 Christel at noon and 1 Christel in the evening and 1 Christel before bedtime. 04/05/2024 ActiveCPAP/BIPAP/OTHER (20 sources)Start: 05-05-2022 End: 93-37-2298PVPH/BIPAP/OTHER Indications: JOSE RAFAEL (obstructive sleep apnea) Type .CPAPSettings into a note to see current settings/supplies/DME information. 1 Each 05/05/2022 09/19/2049 ActiveStart: 05-05-2022 End: 46-05-0771MKWG/BIPAP/OTHER Indications: JOSE RAFAEL (obstructive sleep apnea) Type .CPAPSettings into a note to see current settings/supplies/DME information. 1 Each 0 05/05/2022 09/19/2049 ActiveStart: 04-13-2022 End: 57-80-8322NLUR/BIPAP/OTHER Indications: JOSE RAFAEL (obstructive sleep apnea) Type .CPAPSettings into a note to see current settings/supplies/DME information. 1 Each 0 04/13/2022 04/26/2023 Discontinued (Duplicate Entry)Start: 04-13-2022 End: 86-95-3614DKLH/BIPAP/OTHER Indications: JOSE RAFAEL (obstructive sleep apnea) Type .CPAPSettings into a note to see current settings/supplies/DME information. 1 Each 0 04/13/2022 08/28/2049 ActiveComment on above:Type .CPAPSettings into a note to see current settings/supplies/DME information.diclofenac sodium 0.01 mg/mg topical gel (20 sources)Nonsteroidal Anti-inflammatory DrugStart: 90-97-6327Ausimzxqyq sodium 1 % Gel gel Apply 2 g topically 4 times daily. 08/14/2024 ActiveStart: 27-51-8067pejigfkxwp sodium 1 % gel 02/01/2024 ActiveStart: 09-27-6830qufmiudflz sodium (VOLTAREN ARTHRITIS PAIN) 1 % gel Apply 2 g topically 4 (four) times a day as needed. 02/01/2024 NfuchnfbknmrkcsqKCAOE-apydpe-rnhnwtrzb (BMX 1:1:1) 1:1:1 liqd (20 sources)Start: 89-83-9173bzxc 5 mL by mouth every six hours as needed ipnvuoittrLJURB-qjhbwr-kxnsicuwv (BMX 1:1:1) 1:1:1 liqd Take 5 mL by mouth every 6 hours as needed.500 mL 1 07/12/2024 Active0.5 ml dulaglutide 3 mg/ml auto-injector (20 sources)GLP-1 Receptor AgonistStart: 40-66-6847Snirdvcxx 1.5 MG/0.5ML Solution Auto-injector injection Inject 0.5 mL under the skin every 7 days. 0 01/23/2025 ActiveStart: 08-17-2024 End: 65-78-0913Ryqcvtdyz 1.5 MG/0.5ML solution auto-injector INJECT SUBCUTANEOUSLY ONCE A WEEK DIRECTED 08/17/2024 02/28/2025 Discontinued (Therapy completed)Start: 28-19-3141fgbndx 0.75 mg by subcutaneous injection onceTRULICITY 0.75 mg/0.5 mL pen injector Inject 0.75 mg subcutaneously one time a week. Per PCP 07/29/2024 ActiveStart: 11-16-2022 End: 23-08-1029ozxdqj 1.5 mg by subcutaneous injection every weekdulaglutide (TRULICITY) 1.5 mg/0.5 mL pen injector Indications: Obesity, Class II, BMI 35- 39.9 , Prediabetes Inject 1.5 mg subcutaneously one time a week. 2 mL 0 11/16/2022 ActiveStart: 10-16-2022 End: 27-03-4462vajmnq 0.75 mg by subcutaneous injection every weekdulaglutide (TRULICITY) 0.75 mg/0.5 mL pen injector Indications: Obesity, Class III, BMI 40- 49.9 (morbid obesity) (HCC) , Pre-diabetes Inject 0.75 mg subcutaneously one time a week. 2 mL 0 10/16/2022ctiveStart: 09-07-2022 End: 42-82-1345iupzqf 0.75 mg by subcutaneous injection every weekdulaglutide (TRULICITY) 0.75 mg/0.5 mL pen injector Indications: Obesity, Class III, BMI 40- 49.9 (morbid obesity) (HCC) , Pre-diabetes Inject 0.75 mg subcutaneously one time a week. 2 mL 0 ActiveComment on above:Inject 0.75 mg subcutaneously one time a week.Inject 1.5 mg subcutaneously one time a week. DULoxetine 30 mg delayed release oral capsule (20 sources)Serotonin and Norepinephrine Reuptake InhibitorStart: 57-96-4695wpub 1 capsule by mouth once dailyDULoxetine [address] Particles capsule DR Take 1 capsule by mouth daily. 02/22/2025 ActiveStart: 97-62-5448rlvo 1 capsule by mouth once dailyDuloxetine 20 mg capsule,delayed release(DR/EC) Active 20 MG PO Daily December 12, 2024 12:00am Complies with drug therapyStart: 02-01-2024 End: 67-20-8086njhu 1 capsule by mouth once dailyDULoxetine (Cymbalta) [address] capsule Take 20 mg by mouth Daily 02/01/2024 03/16/2024 DiscontinuedStart: 10-29-2022 End: 09-62-1697dyre 1 capsule by mouth once dailyDULoxetine (CYMBALTA) 20 mg capsule Indications: Depression, recurrent (HCC) , Chronic pain syndrome Take 1 capsule by mouth once daily. 30 capsule 2 10/29/2022 04/26/2023 Discontinued (Course of therapy completed)Start: 03-09-2022 End: 41-16-4570aumm 1 capsule by mouth once dailyDULoxetine (CYMBALTA) 20 mg capsule Take 1 capsule by mouth once daily. 30 capsule 2 03/09/2022 Active Comment on above:Take 1 capsule by mouth once daily.ergocalciferol 1.25 mg oral capsule (20 sources)Provitamin D2 CompoundStart: 22-20-3171Hbvkznbkggelri (Vitamin D2) 1,250 mcg (50,000 unit) capsule Active 92739 UNIT PO 3 Times a week November 13, 2024 11:23am Complies with drug therapyStart: 04-02-2024 End: 05-75-2813jhjcsfrnwzwooc 50,000 unit capsule (VITAMIN D2, DRISDOL) Indications: Vitamin D deficiency Take 1cap by mouth twice a week x 10weeks, then once a week with food. 24 capsule 1 04/02/2024 07/09/2024 Discontinued Start: 10-20-2023 End: 69-91-6524mmvb 1 capsule by mouth every weekErgocalciferol 1.25 MG (94526 UT) capsule Take 1 capsule by mouth once a week. 10/06/2024 ActiveStart: 10-31-2022 End: 66-09-3998tcsh 1 capsule by mouth every weekergocalciferol (DRISDOL) 1,250 mcg (50,000 unit) capsule Take 1 capsule (50,000 Units total) by mouth once a week. 10/20/2023 ActiveStart: 02-05-8261ngabhyeuntmcxi 50,000 unit capsule (VITAMIN D2, DRISDOL) Indications: Vitamin D deficiency (take bymouth with food 3times a week, ONE CAPSULE ON Mondays, Fridays) FOR A TOTAL OF 8 WEEKS, then once aweek thereafter. 28 capsule 1 05/18/2022 ActiveStart: 10-26-2021 End: 79-64-3431wtyyyzrfeknrgx 50,000 unit capsule (VITAMIN D2, DRISDOL) Indications: Vitamin D deficiency (take bymouth with food 2times a week, ONE CAPSULE ON MON, Fridays) FOR A TOTAL OF 8 WEEKS, then once aweek thereafter. 20 capsule 1 03/05/2022 ActiveStart: 89-90-3688vciduxdqgqqdyn 50,000 unit capsule (VITAMIN D2, DRISDOL) Indications: Vitamin D deficiency (take bymouth with food 3times a week, ONE CAPSULE ON Mondays, Wed, Fridays) FOR A TOTAL OF 8 WEEKS. 24 capsule 0 03/06/2021 Activetake 1 capsule by mouth every week ergocalciferol (Vitamin D2) 1.25 MG (78496 UT) capsule Take 50,000 Units by mouth [...] / Ferrous fumarate / Norethindrone (20 sources)EstrogenStart: 03-90-7944vxzj 1 tablet by mouth once dailyLo Loestrin Fe 1 MG-10 MCG / 10 MCG tablet Take 1 tablet by mouth daily. 11/17/2024 ActiveStart: 72-63-0918uutx 1 tablet by mouth once dailyLO LOESTRIN FE 1 mg-10 mcg (24)/10 mcg (2) Take 1 tablet by mouth once daily. 11/17/2024 ActiveStart: 03-23-2024 End: 92-40-8384kvvy 1 tablet by mouth once dailynorethindrone-ethinyl estradiol- iron (Lo Loestrin Fe) 1 MG-10 MCG / 10 MCG tablet Indications: Menorrhagia with regular cycle Take 1 tablet by mouth Daily Take 1 tablet by mouth daily 28 tablet 11 03/23/2024 02/28/2025 Discontinued (Therapy completed)Start: 03-23-2024 End: 05-20-4801cclp 1 tablet by mouth once dailynorethindrone-ethinyl estradiol- iron (Lo Loestrin Fe) 1 MG-10 MCG / 10 MCG tablet Indications: Menorrhagia with regular cycle Take 1 tablet by mouth Daily Take 1 tablet by mouth daily 28 tablet 11 03/23/2024 02/22/2025 Activefidaxomicin 200 mg oral tablet (20 sources)Macrolide AntibacterialStart: 90-19-5242ikko 1 tablet by mouth twice dailyfidaxomicin 200 MG tablet Take 1 tablet by mouth 2 times daily. 02/28/2025 ActiveStart: 06-15-2024 End: 04-38-1052smqh 1 tablet by mouth once in the morningfidaxomicin (Dificid) 200 MG tablet Indications: H/O Clostridium difficile infection Take 1 tablet ( 200 mg) by mouth in the morning and 1 tablet (200 mg) before bedtime. Do all this for 10 days. 20 tablet 06/15/2024 06/25/2024 ActiveStart: 10-20-2023 End: 55-69-4922lixw 1 tablet by mouth every other dayFidaxomicin (Dificid) 200 mg tablet Discontinued 200 MG PO .every other day October 20, 2023 12:00am December 16, 2023 2:11pmStart: 10-20-2023 End: 77-16-3145bdkd 1 tablet by mouth every twelve hoursFidaxomicin (Dificid) 200 mg tablet Discontinued 200 MG PO Every 12 hours 20 10 October 20, 2023 12: 00am December 16, 2023 2:11pmfludrocortisone acetate 0.1 mg oral tablet (3 sources)Start: 06-01-2023 End: 28-35-6133mmrr 1 tablet by mouth at bedtimefludrocortisone (Florinef) 0.1 MG tablet Indications: Autonomic dysfunction Take 1 tablet (0.1 mg) by mouth at bedtime 30 tablet 11 06/01/2023 05/31/2024 Activefluocinonide 0.5 mg/ml topical solution (20 sources)CorticosteroidStart: 07-15-2023 End: 49-77-7798kpejvfbzvslt 0.05 % Solution solution Apply 1 Application topically 2 times daily. 07/25/2024 ActiveStart: 06-87-3225Udrsurxhrszr 0.05 % solution Active 1 APPLIC TOPICAL Daily as needed for rash October 20, 2023 12:00am Complies with drug therapyfluticasone propionate 0.05 mg/actuat metered dose nasal spray (20 sources)CorticosteroidStart: 79-23-3743jrei 2 spray(s) nasal route in the morningfluticasone [...] acid 1 mg oral tablet (20 sources)Start: 67-54-3212bpwt 1 tablet by mouth once dailyFolic Acid 1 mg tablet Active 1 MG PO Daily December 12, 2024 12:00am Complies with drug therapy Start: 54-45-8852Mceqe Acid 1 mg tablet Active PO Daily December 12, 2024 12:00am Complies with drug therapyStart: 03-18-2022 End: 24-65-9390plqi 1 tablet by mouth once dailyFolic Acid 1 mg tablet Active 1 MG PO Daily December 12, 2024 12:00am Complies with drug therapyComment on above: Take 1 tablet by mouth once daily.TAKE 1 TABLET BY MOUTH EVERY DAY hydroxychloroquine sulfate 200 mg oral tablet (20 sources)Antimalarial, Antirheumatic AgentStart: 15-57-8353ctrnAHKvvvgxjINUCS (PLAQUENIL) 200 mg tablet Indications: CHRISTIAN positive , Other systemic lupus erythematosus with other organ involvement (HCC) TAKE 1 TAB TWICE A DAY WITH FOOD *SUNSCREEN WHILE OUTDOORS/OPHTHAMOLOGY EVERY 6-12 MONTHS WHILE ON* 60 tablet 11 01/23/2025 ActiveStart: 37-86-7433nffi 2 tablets by mouth once daily Hydroxychloroquine 200 mg tablet Active 400 MG PO Daily October 20, 2023 12:00am Complies with drug therapyStart: 16-89-5864qtel 400 mg by mouth once daily Hydroxychloroquine Active 400 MG PO Daily October 20, 2023 12:00amStart: 10-19-2023 End: 86-73-5715dfjzDCDjwesdgWIRRD (PLAQUENIL) 200 mg tablet Indications: CHRISTIAN positive [...] 180 tablet 3 10/30/2022 ActiveStart: 05-05-2021 End: 94-98-8084lforHHLutsotrDVSXQ (PLAQUENIL) 200 mg tablet Indications: CHRISTIAN positive , Other systemic lupus erythematosus with other organ involvement (HCC) Take one tab by mouth twice a day with food. Sunscreen when outdoors. See ophthalmology every 6-12months on med. 180 tablet 3 10/24/2021 Activetake 1 capsule by mouth once dailyHydroxychloroquine Sulfate 400 MG tablet Take 1 capsule by mouth daily. Activehydroxychloroquine (Plaquenil) 400 MG tablet 1 (one) time each day at the same time Activehydroxychloroquine (Plaquenil) 400 MG tablet 1 (one) time each day at the same time. Activehydroxychloroquine (Plaquenil) 400 MG tablet 1 (one) time each day at the same time. 0 Active End: 55-69-5397khkhpbmikjmheuaxsi sulfate (HYDROXYCHLOROQUINE ORAL) Hydroxychloroquine Sulfate Active 0 03/12/2022iscontinued (Duplicate Entry) Hydroxychloroquine Sulfate ActiveComment on above:Take one tab by mouth twice a day with food. Sunscreen when outdoors. See ophthalmology every 6-12months on med.Hydroxychloroquine Sulfate ActiveTAKE 1 TAB TWICE A DAY WITH FOOD *SUNSCREEN WHILE OUTDOORS/OPHTHAMOLOGY EVERY 6-12 MONTHS WHILE ON*hyoscyamine sulfate 0.125 mg oral tablet (2 sources)Start: 41-33-1427bsln 1 tablet by mouth every six hours as needed for painhyoscyamine (Anaspaz,Levsin) 0.125 MG tablet TAKE 1 TABLET BY MOUTH EVERY 6 HOURS NEEDED FOR ABDOMINAL PAIN 0 06/27/2023 Activeibuprofen 400 mg oral tablet (20 sources)Nonsteroidal Anti-inflammatory DrugStart: 04-47-8850Vjzzndgbf 400 mg tablet Active 400 MG PO 2-3 TIMES PER DAY as needed for pain January 31, 2025 12:00am Complies with drug therapytake 4 tablets by mouth every eight hours Ibuprofen 200 MG tablet Take 4 tablets by mouth Every 8 hours. Activeibuprofen 200 MG tablet every 8 (eight) hours Activeibuprofen (MOTRIN) 200 mg tablet Take 600 mg by mouth. Activetake 1 tablet by mouth every six hours as needed for pain ibuprofen (ADVIL;MOTRIN) 200 MG tablet Take 200 mg by mouth every 6 hours as needed for Pain 0 ActiveComment on above:Take 600 mg by mouth. Immunoglobulin G (20 sources)Human Immunoglobulin GStart: 63-98-7830Mdxdz: 50-93-7771vbtjmzhkt Active IV EVERY 4 WEEKS December 12, 2024 10:58am Complies with drug therapyStart: 12-12-2024 End: 40-63-0994ebcqlkomn Discontinued IV December 12, 2024 12:00am December 12, 2024 10:58amimmune globulin, human, (Gammagard) infusion Infuse into a venous catheter Activeimmune globulin, human, (Gammagard) infusion Infuse into a venous catheter 1 time. Activemagnesium citrate 58.2 mg/ml oral solution (2 sources)Start: 80-55-8901JEZ Magnesium Citrate oral solution TAKE HALF OF THE BOTTLE WITH 8 OZ OF WATER, TAKE THE OTHER HALFAFTER 1 HOUR WITH 8 OZ OF WATER 0 06/27/2023 Activemethocarbamol 750 mg oral tablet (1 source)Muscle RelaxantStart: 11-48-4860nuiq 1 tablet by mouth twice daily Methocarbamol 750 MG tablet Take 1 tablet by mouth 2 times daily. 01/02/2025 Activemetoprolol tartrate 50 mg oral tablet (20 sources)beta-Adrenergic BlockerStart: 07-26-2024 End: 45-84-3711xuxf 1 tablet by mouth four times dailymetoprolol tartrate (Lopressor) 50 mg tablet Indications: Paroxysmal supraventricular tachycardia (C [facility]-HCC) , Essential hypertension Take 1 tablet by mouth 4 times a day. 360 tablet 3 07/26/2024 07/26/2025 ActiveStart: 50-32-1982lltq 4 tablets by mouth once dailyMetoprolol Tartrate 50 mg tablet Active 200 MG PO Daily October 20, 2023 12:00am Complies with drug therapyStart: 81-25-1436urjf 200 mg by mouth once dailyMetoprolol Tartrate Active 200 MG PO Daily October 20, 2023 12:00amStart: 55-81-3785loxo 50 mg by mouth once dailyMetoprolol Tartrate Active 50 MG PO Daily October 20, 2023 12:00amStart: 26-89-6859oefa 1 tablet by mouth twice daily metoprolol tartrate, short acting, (LOPRESSOR) 50 mg tablet Take 50 mg by mouth twice daily. 05/25/2022 ActiveStart: 05-25-2022 End: 37-29-3324gpat 2 tablets by mouth in the morningmetoprolol tartrate (Lopressor) 50 MG tablet Take 100 mg by mouth in the morning and 100 mg before b edtime. 04/23/2023 ActiveStart: 07-29-2020 End: 80-81-9345qznq 1 tablet by mouth twice dailymetoprolol tartrate, short acting, (LOPRESSOR) 25 mg tablet Take 25 mg by mouth twice daily. 0 07/29/2020 ActiveComment on above:Take 25 mg by mouth twice daily.Take 50 mg by mouth twice daily.montelukast 10 mg oral tablet (5 sources)Leukotriene Receptor AntagonistStart: 05-25-2023 End: 10-91-9613otsv 1 tablet by mouth once daily at bedtimemontelukast (Singulair) 10 mg tablet Take 1 tablet (10 mg) by mouth once daily at bedtime. 0 05/25/2023 05/24/2024 ActiveNaltrexone (15 sources)Opioid AntagonistStart: 01-19-2022 End: 98-20-0498nsif 1 capsule by mouth once dailynaltrexone capsule 1 mg TAKE ONE CAPSULE BY MOUTH DAILY 0 01/19/2022 07/25/2022 DiscontinuedStart: 01-19-2022 take 1 capsule by mouth once dailynaltrexone capsule 1 mg TAKE ONE CAPSULE BY MOUTH DAILY 0 01/19/2022 ActiveComment on above:TAKE ONE CAPSULE BY MOUTH DAILY nitroglycerin 0.4 mg sublingual tablet (20 sources)Nitrate VasodilatorStart: 10-07-2020 End: 45-57-0373uzyleblbcqegt sublingual (NITROQUICK) 0.4 mg SL tablet Dissolve 0.4 mg under the tongue. 0 10/07/2020 07/25/2022 DiscontinuedComment on above: Dissolve 0.4 mg under the tongue.nystatin 584926 unt/ml oral suspension (20 sources)Polyene AntifungalStart: 82-27-0440aidw 4 mL by mouth every six hoursNystatin 203802 UNIT/ML oral suspension Swish and spit 4 mL Every 6 hours. 11/06/2024 ActiveStart: 56-05-5526fzca 4 mL by mouth four times dailynystatin (MYCOSTATIN) 100,000 unit/mL suspension TAKE 4 ML BY MOUTH / THROAT 4 TIMES A DAY FOR 7 DAYS 11/06/2024 ActiveStart: 07-31-2024 End: 29-32-0644nfem 1 mL by mouth once dailyNystatin 100,000 unit/mL suspension Discontinued 1 ML PO Daily July 31, 2024 12:00am December 12, 2024 10:49am swish and swallowStart: 07-25-2024 End: 68-55-6638nryfciqu (Mycostatin) 600555 UNIT/ML suspension Indications: Rash and other nonspecific skin eruption Take 4 mL (400,000 Units) by mouth in the morning and 4 mL (400,000 Units) at noon and 4 mL (400,000 Units) in the evening and 4 mL (400,000 Units) before bedtime. Do all this for 14 days. 224 mL 08/08/2024 ActiveStart: 01-27-2024 End: 00-35-1093nprxfikt (MYCOSTATIN) 100,000 unit/mL suspension Take 5 mL by mouth four times daily for 7 days. SWISH AND SWALLOW 1 TEASPOON(S) (5ML) 4 TIMES PER DAY. 140 mL 01/27/2024 02/03/2024 ActiveStart: 50-84-6592qlznmhrc (Mycostatin) cream Indications: Candidiasis of skin Apply to left armpit BID until clear 15 g 01/15/2023 Activeondansetron 4 mg disintegrating oral tablet (2 sources)Serotonin-3 Receptor AntagonistStart: 00-84-1058izgn 1 tablet by mouth every six hours as needed for nausea and vomitingondansetron ODT (Zofran- ODT) 4 MG disintegrating tablet DISSOLVE 1 TABLET IN MOUTH EVERY 6 HOURS NEEDED FOR NAUSEA AND VOMITING 0 06/27/2023 Activepantoprazole 20 mg delayed release oral tablet (20 sources)Proton Pump InhibitorStart: 14-86-7060nsvq 2 tablets by mouth twice dailyPantoprazole 20 mg tablet,delayed release (DR/EC) Active 40 MG PO Twice daily November 13, 2024 11:24am Complies with drug therapyStart: 28-34-4172spqd 2 tablets by mouth once dailyPantoprazole 20 mg tablet,delayed release (DR/EC) Active 40 MG PO Daily November 13, 2024 11:24am Complies with drug therapyStart: 41-94-8042ayvf 1 tablet by mouth at breakfastpantoprazole DR (PROTONIX) 40 mg tablet TAKE 1 TABLET BY MOUTH 1/2 TO 1 HOUR BEFORE MORNING MEAL 10/21/2024 ActiveStart: 07-19-2024 End: 37-43-0109cdhu 1 tablet by mouth once dailyPantoprazole 20 mg tablet,delayed release (DR/EC) Discontinued 20 MG PO Daily July 19, 2024 1:00am November 13, 2024 11:24amStart: 01-26-2024 End: 56-31-3001ynox 1 tablet by mouth once dailypantoprazole (ProtoNix) 40 MG EC tablet Take 40 mg by mouth Daily 01/26/2024 03/16/2024 DiscontinuedStart: 09-22-2023 End: 66-74-9361rtwv 1 tablet by mouth once dailyPantoprazole 40 mg tablet,delayed release (DR/EC) Discontinued 40 MG PO Daily 30 22 04September 22, 2023 12:00am October 20, 2023 1:07pm Take 1 tablet orally once a day.phentermine hydrochloride 37.5 mg oral tablet (20 sources)Sympathomimetic Amine AnorecticStart: 04-26-2023 End: 95-67-5619zjtt 1 tablet by mouth before mealtimephentermine (Adipex-P) 37.5 MG tablet Take 37.5 mg by mouth in the morning. Take before meals. 05/26/2023 ActiveComment on above:Take 1 tablet by mouth daily before breakfast for 30 days.Take 1 tablet by mouth daily before breakfast for 90 days.pilocarpine hydrochloride 5 mg oral tablet (13 sources)Cholinergic Receptor AgonistStart: 55-25-6052flrx 1 tablet by mouth three times dailypilocarpine 5 MG tablet Take 1 tablet by mouth 3 (three) times a day. 2024 ActiveStart: 07-12-2024 End: 73-72-6549fibl 1 tablet by mouth three times dailypilocarpine (SALAGEN) 5 mg tablet TAKE 1 TABLET BY MOUTH THREE TIMES A DAY 135 tablet 1 08/07/2024 0 09/06/2024 Activepravastatin sodium 20 mg oral tablet (20 sources)HMG-CoA Reductase InhibitorStart: 76-25-3911jlvx 1 tablet by mouth once dailyPravastatin 20 MG tablet Take 1 tablet by mouth daily. 05/03/2024 ActiveStart: 01-26-2024 End: 01-42-0401juhv 1 tablet by mouth once dailypravastatin (Pravachol) 20 MG tablet Take 20 mg by mouth Daily 01/26/2024 03/16/2024 DiscontinuedStart: 10-20-2023 End: 25-57-7420enhl 1 tablet by mouth once dailyPravastatin 20 mg tablet Discontinued 20 MG PO Daily October 20, 2023 12:00am October 20, 2023 1:08pmStart: 07-47-9775xveo 1 tablet by mouth once dailypravastatin (Pravachol) 20 MG tablet TAKE 1 TABLET BY MOUTH EVERY DAY FOR 30 DAYS 0 06/24/2023 ActivepredniSONE 10 mg oral tablet (20 sources)Start: 12-82-9236bmel 1 tablet by mouth once daily at mealtime predniSONE 10 MG tablet Take 1 tablet by mouth As directed. Take 40mg daily x 3, decrease by 5mg every 3days until taking 10mg daily with food thereafter (no oral nsaids) 01/23/2025 ActiveStart: 63-73-5465ydatmmIIBC (DELTASONE) 10 mg tablet Indications: Other systemic lupus erythematosus with other organ involvement (HCC) Take 40mg daily x 3, decrease by 5mg every 3days until taking 10mg daily with food thereafter (no oral nsaids) 120 tablet 1 01/23/2025 Active Start: 06-22-2024 End: 72-93-6414gndwgxHTIO (DELTASONE) 10 mg tablet Indications: Other systemic lupus erythematosus with other organ involvement (HCC) Take 40mg daily x 3, decrease by 5mg every 3days until taking 10mg daily with food thereafter (no oral nsaids) 120 tablet 1 10/07/2024 ActiveStart: 01-12-2024 End: 05-10-4687tajubxQZAR (DELTASONE) 10 mg tablet Indications: Other systemic [...] 12:00am Complies with drug therapyStart: 05-12-2023 End: 75-89-9196vuge 1 tablet by mouth once dailyPrednisone 10 mg tablet Active 10 MG PO Daily October 20, 2023 12:00am Complies with drug therapyStart: 05-12-2023 End: 65-06-0199rcikhcOCHZ (DELTASONE) 10 mg tablet Indications: Other systemic lupus erythematosus with other organ involvement (HCC) Take 40mg daily x 5days, then decrease 5mg every 5days until 10mg daily thereafter 120 tablet 1 05/12/2023 10/05/2023 DiscontinuedStart: 38-73-0739saxzevRSBN (DELTASONE) 10 mg tablet Indications: Other systemic lupus erythematosus with other organ involvement (HCC) Take 40mg daily x 5days, then decrease 5mg every 5days until 10mg daily thereafter 120 tablet 1 08/17/2022 ActiveStart: 06-01-2022 End: 14-45-9947ctss 1 tablet by mouth once dailypredniSONE (DELTASONE) 10 mg tablet Take 10 mg by mouth once daily. 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 08/16/2023 Activethiamine 100 mg oral tablet (20 sources)Start: 56-99-8113onwe 1 tablet by mouth once daily as neededThiamine Hcl (Vitamin B1) 100 mg tablet Active MG PO Daily as needed December 12, 2024 12:00am Complies with drug therapyStart: 06-01-2023 End: 20-48-6509tjjs 1 tablet by mouth once dailyThiamine 100 MG tablet Take 1 tablet by mouth daily. 10/27/2024 ActiveTirzepatide (Mounjaro) 2.5 MG/0.5ML Solution Auto-injector (1 source)Start: 39-18-8594Ojnmtntdafw (Mounjaro) 2.5 MG/0.5ML Solution Auto- injector Inject 2.5 mg under the skin every 7 days. 02/26/2025 Activetopiramate 25 mg oral tablet (20 sources)Start: 04-26-2023 End: 11-06-1216jvrv 1 tablet by mouth twice dailytopiramate (TOPAMAX) 25 mg tablet Indications: Other chronic pain Take 1 tablet by mouth two times a day. 180 tablet 05/26/2023 03/18/2024 Discontinued (Course of therapy completed) Comment on above:Take 1 tablet by mouth two times a day.tretinoin 0.25 mg/ml topical cream (20 sources)RetinoidStart: 35-19-1431lytyrprgh (Retin-A) 0.025 % cream Indications: Acne vulgaris Apply to face, once daily at evening/night time, 30 day supply 45 g 11 11/23/2024 ActiveStart: 59-31-0837mtszrybhx (Retin-A) 0.05 % cream Indications: Striae atrophic Apply to face, once daily at evening/night time, 30 day supply 20 g 11 07/15/2023 ActiveVitamin D 50 MCG (1999 UT) (4 sources)take 1 tablet by mouth every weekVitamin D 50 MCG (1999 UT) 1 tablet Orally weekly Active Completed/Discontinued Medications MedicationDrug Class(es)DatesSig (Normalized)Sig (Original)acyclovir 400 mg oral tablet (20 sources)Herpesvirus Nucleoside Analog DNA Polymerase Inhibitor, Herpes Simplex Virus Nucleoside Analog DNA Polymerase Inhibitor, Herpes Zoster Virus Nucleoside Analog DNA Polymerase InhibitorStart: 10-03-2021 End: 90-97-4851jxlx 1 tablet by mouth once dailyacyclovir (ZOVIRAX) 400 mg tablet Take 400 mg by mouth once daily. 0 10/03/2021 04/26/2023 Discontinued (Discontinued by Patient)Comment on above:Take 400 mg by mouth once daily. amLODIPine 5 mg oral tablet (8 sources)Dihydropyridine Calcium Channel BlockerStart: 02-03-2024 End: 75-81-1128wpuo 1 tablet by mouth once dailyamLODIPine (Norvasc) 5 MG tablet Take 5 mg by mouth Daily 02/03/2024 03/16/2024 DiscontinuedStart: 10-07-2020 take 1 tablet by mouth once dailyamLODIPine (NORVASC) 2.5 MG tablet Take 1 tablet by mouth daily 30 tablet 3 10/07/2020 ActiveazaTHIOprine 50 mg oral tablet (20 sources)Purine AntimetaboliteStart: 05-24-2023 End: 74-45-4787pptm 1 tablet by mouth three times dailyAzathioprine 50 mg tablet Discontinued 50 MG PO Three times daily October 20, 2023 12:00am October 11:22amStart: 05-24-2023 End: 72-08-3696bznr 3 tablets by mouth once dailyazaTHIOprine (Imuran) 50 MG tablet Take 150 mg by mouth Daily 05/24/2023 02/28/2025 Discontinued (Therapy completed)Start: 44-13-8501fdsb 50 mg by mouth twice dailyAzathioprine Active 50 MG PO Twice daily October 20, 2023 12:00amStart: 61-83-4608urca 3 tablets by mouth three times dailyazaTHIOprine (Imuran) 50 mg tablet Take 3 tablets (150 mg) by mouth 3 times a day. 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 HOLD IF ON ANTIBIOTICS OR ILL. 90 tablet 3 02/16/2023 ActiveStart: 08-19-2022 End: 68-28-7950kibe 2 tablets by mouth once daily at mealtimeazaTHIOprine (IMURAN) 50 mg tablet Indications: Other systemic lupus erythematosus with other organinvolvement (HCC) , Encounter for longterm current use of azathioprine Take 2tab daily by mouth with food. Hold if on antibiotics or ill. 60 tablet 3 08/19/2022 11/24/2022 DiscontinuedStart: 06-15-2022 End: 05-10-3721mgim 1 tablet by mouth once daily at [...] (20 sources)B Lymphocyte Stimulator-specific InhibitorStart: 11-13-2024 End: 22-56-8387zkqhiomhn (Benlysta) Discontinued IV every month November 13, 2024 12:00am March 13, 2025 9:07amStart: 41-79-8104enabulyym (Benlysta) Active IV every month November 13, 2024 12:00am Complies with drug therapyStart: 11-13-2024 Start: 00-79-0020Htrixojk 200 MG/ML Solution Auto-injector Inject 200 mg under the skin every 7 days. 09/18/2024 ActiveStart: 02-04-2023 End: 35-52-7054whesxu 200 mg by subcutaneous injection every weekBelimumab [...] Wed11/16/24 at 1400, Total Volume - EXP: 11/16/2024 2200 RT Protect From LightStart: 10-19-2024 End: ,275 [...] Volume - EXP: 12/14/20242014 RT Protect From Lightbelimumab 1,318 mg in NaCl 0.9% 250 mL (BENLYSTA) (1 source)Start: 09-18-2024 End: ,318 mg (10 mg/kg/dose 131.8 kg), INTRAVENOUS, at 125 mL/hr, Administer over 120 Minutes, ONCE, 1 dose, On Wed09/18/24 at 1400, Total Volume - EXP: 09/18/2024 1935 RT Protect From Lightbiotin 10 mg oral tablet (20 sources) End: 89-54-2386Tcrepf 10 mg tab 2 0 04/26/2023 Discontinued (Discontinued by Patient)Comment on above:2dexamethasone 2 mg oral tablet (9 sources)CorticosteroidStart: 01-20-2024 End: 65-35-0042jxxLUFIFnoiuo (Decadron) 2 MG tablet Indications: Lumbosacral radiculopathy at L5 2mg 3 pills po X3days,2 pills po daily X3 days , then 1 pill po daily X3 days then stop 9 days 18 pills 18 tablet 1 01/20/2024 03/16/2024 Discontinueddicyclomine hydrochloride 10 mg oral capsule (20 sources)AnticholinergicStart: 01-25-2024 End: 34-28-5297sexr 1 capsule by mouth in the morning, then take 1 capsule by mouth in the evening, then take 1 capsule by mouth at bedtimedicyclomine (Bentyl) 10 MG capsule Take 10 mg by mouth in the morning and 10 mg in the evening and 10 mg before bedtime. 01/25/2024 03/16/2024 DiscontinuedStart: 09-22-2023 End: 84-27-6039ksbk 1 capsule by mouth twice daily as needed for painDicyclomine 10 mg capsule Discontinued 10 MG PO Twice daily as needed for abdominal pain 60 30 5 September 22, 2023 12:00am October 20, 2023 1:07pm Take 1 capsule orally twice a day prndiphenhydrAMINE (15 sources)Histamine-1 Receptor AntagonistStart: 01-24-2025 End: 05-69-939244 mg, INTRAVENOUS, ONCE, 1 dose, On Wed01/24/25 at 0930Start: 01-11-2025 End: 87-24-1449ufml 1 dose by mouth once25 mg, ORAL, ONCE, 1 dose, On Wed01/11/25 at 1430Start: 12-14-2024 End: 58-11-5519owyi 1 dose by mouth once25 mg, ORAL, ONCE, 1 dose, On Wed12/14/24 at 1430Start: 11-29-2024 End: 74-19-591083 mg, INTRAVENOUS, ONCE, 1 dose, On Wed11/29/24 at 1000Start: 11-16-2024 End: 90-25-8455xpme 1 dose by mouth once25 mg, ORAL, ONCE, 1 dose, On Wed11/16/24 at 1400Start: 10-31-2024 End: 51-23-774165 mg, INTRAVENOUS, ONCE, 1 dose, On Wed10/31/24 at 1000Start: 10-19-2024 End: 94-17-7765nwwi 1 dose by mouth once25 mg, ORAL, ONCE, 1 dose, On Wed10/19/24 at 1430Start: 2024 End: 48-73-7028xlzn 1 dose by mouth once25 mg, ORAL, ONCE, 1 dose, On Wed10/04/24 at 1430Start: 10-02-2024 End: 92-68-855612 mg, INTRAVENOUS, ONCE, 1 dose, On Wed10/02/24 at 0900Start: 09-18-2024 End: 56-67-9079dolc 1 dose by mouth once25 mg, ORAL, ONCE, 1 dose, On Wed09/18/24 at 1300Start: 09-06-2024 End: 60-96-203796 mg, INTRAVENOUS, ONCE, 1 dose, On Wed09/06/24 at 0930Start: 08-08-2024 End: 72-90-541087 mg, INTRAVENOUS, ONCE, 1 dose, On Wed08/08/24 at 0930Start: 07-11-2024 End: 45-62-391712 mg, INTRAVENOUS, ONCE, 1 dose, On Wed07/11/24 at 0900Start: 06-13-2024 End: 09-75-418811 mg, INTRAVENOUS, ONCE, 1 dose, On Wed06/13/24 at 1000Start: 05-19-2024 End: 49-97-406338 mg, INTRAVENOUS, ONCE, 1 dose, On Wed05/19/24 at 1000 famotidine 20 mg oral tablet (19 sources)Histamine-2 Receptor AntagonistStart: 04-10-2024 End: 43-61-0387itth 1 tablet by mouth at bedtimefamotidine (Pepcid) 20 MG tablet Indications: LPRD (laryngopharyngeal reflux disease) Take 1 tablet(20 mg) by mouth at bedtime 90 tablet 04/10/2024 09/04/2024 Discontinued (Therapy completed)Start: 07-21-2020 End: 87-02-4832efkb 1 tablet by mouth once daily at [...] mg/mg topical ointment (20 sources)Start: 11-22-2023 End: 06-29-9554Fuwqyccecr 0.1 % ointment Discontinued 1 APPLIC TOPICAL Three times daily 15 10 0 November 22, 2023 12:00am December 16, 2023 2:12pmhydrocortisone 100 mg injection (9 sources)CorticosteroidStart: 01-24-2025 End: 98-93-263521 mg, INTRAVENOUS, ONCE, 1 dose, On Wed01/24/25 at 0930Start: 11-29-2024 End: 27-49-478560 mg, INTRAVENOUS, ONCE, 1 dose, On Wed11/29/24 at 1000Start: 10-31-2024 End: 31-69-606734 mg, INTRAVENOUS, ONCE, 1 dose, On Wed10/31/24 at 1000Start: 10-02-2024 End: 58-33-172589 mg, INTRAVENOUS, ONCE, 1 dose, On Wed10/02/24 at 0900Start: 09-06-2024 End: 79-25-975881 mg, INTRAVENOUS, ONCE, 1 dose, On Wed09/06/24 at 0930Start: 08-08-2024 End: 84-33-877533 mg, INTRAVENOUS, ONCE, 1 dose, On Wed08/08/24 at 0930Start: 07-11-2024 End: 24-57-189460 mg, INTRAVENOUS, ONCE, 1 dose, On Wed07/11/24 at 0900Start: 06-13-2024 End: 37-76-992294 mg, INTRAVENOUS, ONCE, 1 dose, On Wed06/13/24 at 1000Start: 05-19-2024 End: mg, INTRAVENOUS, ONCE, 1 dose, On Wed05/19/24 [...] oral capsule (3 sources)Azole AntifungalStart: 04-03-2024 End: 91-51-9556xisg 1 capsule by mouth once dailyitraconazole (Sporanox) 100 MG capsule Indications: Oral thrush Take 1 capsule (100 mg) by mouth Daily for 5 days 5 capsule 04/03/2024 04/08/2024 Expiredomeprazole 40 mg delayed release oral capsule (20 sources)Proton Pump InhibitorStart: 03-16-2024 End: 28-38-3711rexb 1 capsule by mouth once dailyOmeprazole 40 mg capsule,delayed release(DR/EC) Discontinued 40 MG PO Daily 30 30 3 March 16, 2024 12:00am July 19, 2024 10:52amStart: 08-09-2020 End: 97-75-5201ivre 1 capsule by mouth twice dailyomeprazole (PRILOSEC) 40 mg capsule Indications: Gastroesophageal reflux disease, unspecified whether esophagitis present Take 1 capsule by mouth twice daily. 30 capsule 2 08/09/2020 02/25/2022 Discontinued (Course of therapy completed)take 2 capsules by mouth once dailyomeprazole (PRILOSEC) 20 MG delayed release capsule Take 40 mg by mouth daily 0 ActiveComment on above:Take 1 capsule by mouth twice daily. pregabalin 100 mg oral capsule (20 sources)Start: 12-15-2023 End: 06-03-5435mdxp 1 capsule by mouth in the morning, then take 1 capsule by mouth in the evening, then take 1 capsule by mouth at bedtimepregabalin (Lyrica) 100 MG capsule Indications: Lumbosacral radiculopathy Take 1 capsule (100 mg) by mouth in the morning and 1 capsule (100 mg) in the evening and 1 capsule (100 mg) before bedtime. 90 capsule 2 12/15/2023 03/16/2024 DiscontinuedStart: 45-82-7305inrf 3 capsules by mouth once daily as needed for painPregabalin 75 mg capsule Active 225 MG PO Daily as needed for nerve pain October 20, 2023 12:00am Complies with drug therapyStart: 58-42-5899exlq 225 mg by mouth once daily Pregabalin Active 225 MG PO Daily October 20, 2023 12:00amStart: 46-00-5438uqoz 1 capsule by mouth three times dailypregabalin (Lyrica) 100 MG capsule Indications: Lumbosacral radiculopathy TAKE 1 CAPSULE BY MOUTH THREE TIMES A DAY for 30 90 capsule 2 07/06/2023 ActiveStart: 10-13-2021 End: 79-99-3743prdi 1 capsule by mouth three times dailypregabalin (LYRICA) 75 mg capsule Indications: Fibromyalgia take 1 capsule by mouth three times a day 270 capsule 3 03/02/2023 Activetake 1 capsule by mouth once daily as needed pregabalin 75 MG capsule Take 1 capsule by mouth daily as needed for Other. ActiveLyrica ActiveComment on above:TAKE 1 CAPSULE BY MOUTH 3 TIMES A DAY FOR 30 DAYSTAKE 1 CAPSULE BY MOUTH 3 TIMES A DAYtake 1 capsule by mouth three times a dayPRENATAL VIT/IRON FUMARATE/FA ( VITAMIN ORAL) (2 sources) End: 40-16-3213iasf 1 tablet by mouth once dailyPRENATAL VIT/IRON [...] tablet (9 sources)Factor Xa InhibitorStart: 12-06-2023 End: 63-13-5167wgcw 1 tablet by mouth at mealtimeXarelto 15 MG tablet Take 15 mg by mouth in the evening. Take with meals 12/06/2023 03/16/2024 Discontinued simvastatin 20 mg oral tablet (20 sources)HMG-CoA Reductase InhibitorStart: 03-10-2022 End: 72-67-1181ejbwqdnauqz (ZOCOR) 20 mg tabletterbinafine 250 mg oral tablet (3 sources)Allylamine AntifungalStart: 04-02-2024 End: 43-24-0464ziqa 1 tablet by mouth once dailyterbinafine (LamISIL) 250 MG tablet Indications: Oral thrush Take 1 tablet (250 mg) by mouth Daily for 5 days 5 tablet 04/02/2024 04/03/2024 Discontinuedtriamcinolone acetonide 10 mg/ml injectable suspension (20 sources)CorticosteroidStart: 02-14-2025 End: 69-11-2503zobbaoxaeabai acetonide (Kenalog) injection 2.5 mgStart: 02-14-2025 End: .5 mg, Intra-lesional, Once, On Wed02/14/25 at 1545, For 1 dose Start: 11-23-2024 End: 27-87-0605fwuimydzzejbe 10 MG/ML injection 0.25 mL by Intralesional route once. 11/23/2024 ActiveStart: 35-57-4455csjliefavhnnv acetonide (Kenalog) injection 2.5 mgStart: 42-19-8705Fyfnqnvicraxa Acetonide 0.025 % lotion 1 application 06/23/2022 Activetriamcinolone acetonide (KENALOG) 0.025 % lotion Apply 1 Application topically as needed. Activevitamin b12 1 mg/ml injectable solution (17 sources)Vitamin W83Ggjud: 11-29-2024 End: 30-68-0626wpmwbr 1 dose by intramuscular injection once1,000 mcg, INTRAMUSCULAR, ONCE, 1 dose, On Wed11/29/24 at 1000Start: 10-31-2024 End: 78-40-1859nwataz 1 dose by intramuscular injection once1,000 mcg, INTRAMUSCULAR, ONCE, 1 dose, On Wed10/31/24 at 1000Start: 10-02-2024 End: 37-51-5812dxpxnj 1 dose by intramuscular injection once1,000 mcg, INTRAMUSCULAR, ONCE, 1 dose, On Wed10/02/24 at 0900Start: 09-06-2024 End: 78-92-0746affxqd 1 dose by intramuscular injection once1,000 mcg, INTRAMUSCULAR, ONCE, 1 dose, On Wed09/06/24 at 1000Start: 08-08-2024 End: 38-75-9057esdqjt 1 dose by intramuscular injection once1,000 mcg, INTRAMUSCULAR, ONCE, 1 dose, On Wed08/08/24 at 0930Start: 07-11-2024 End: 70-47-1854xyhxwm 1 dose by intramuscular injection once1,000 mcg, INTRAMUSCULAR, ONCE, 1 dose, On Wed07/11/24 at 0900Start: 06-13-2024 End: 93-02-7116icpczc 1 dose by intramuscular injection once1,000 mcg, INTRAMUSCULAR, ONCE, 1 dose, On Wed06/13/24 at 1000Start: 04-26-2024 End: 75-61-1581akxgkp 1 dose by intramuscular injection once1,000 mcg, INTRAMUSCULAR, ONCE, 1 dose, On Wed04/26/24 at 0930Start: 03-23-2024 End: 90-10-0592xkrtcf 1 dose by intramuscular injection once1,000 mcg, INTRAMUSCULAR, ONCE, 1 dose, On Wed03/23/24 at 1030Start: 02-21-2024 End: 90-05-1310dfvzxd 1 dose by intramuscular injection once1,000 mcg, INTRAMUSCULAR, ONCE, 1 dose, On Wed02/21/24 at 1100Start: 01-25-2024 End: 37-33-6845lrlqhe 1 dose by intramuscular injection once1,000 mcg, INTRAMUSCULAR, ONCE, 1 dose, On Wed01/25/24 at 1130Start: 10-18-8339dmdxuh 1 mL by subcutaneous injection every 30 dayscyanocobalamin (VITAMIN B-12) 1,000 mcg/mL injection Inject 1 mL (1,000 mcg total) under the skin every 30 (thirty) days. 12/28/2023 ActiveStart: 12-27-2023 End: 66-11-8747mnphguckbgqcqq 1,000 mcg injectionStart: 11-29-2023 End: 13-67-5538wwkrxenxfiqqst 1,000 mcg injectionStart: 10-27-2023 End: 34-69-1666pgwadjzluxbdhx 1,000 mcg injectionStart: 09-30-2023 End: 20-53-7031ajyclyzfyvgfzh 1,000 mcg injection Problems Active Problems Problem ClassificationProblemDateDocumented DateEpisodic/ChronicAbdominal pain (20 sources)Finding of sensation of abdomen; Translations: [Unspecified abdominal pain]50-19-7569QbyuthrnEudtxyf disorders (20 sources)Anxiety; Translations: [Anxiety disorder, unspecified]Onset: 804868-51-4812DpuoqfsYaeffymjo infection; unspecified site (3 sources)Bacterial infection due to Pseudomonas; Translations: [Other bacterial infections of unspecified site]Onset: 849391-48-8492Hklmhvzh Cardiac dysrhythmias (20 sources)Postural orthostatic tachycardia syndrome ; Translations: [POTS (postural orthostatic tachycardia syndrome)]Onset: 58-36-8816EbamurdPgwhdzepqq and other anemia (9 sources)Anemia of chronic disease; Translations: [Anemia in other chronic diseases classified elsewhere]ChronicDeficiency and other anemia (1 source)Anemia in other chronic diseases classified elsewhere; Translations: [Anemia of chronic disease]Onset: 95-19-8504ZotmvorYshbjvxg mellitus without complication (3 sources)Type 2 diabetes mellitus; Translations: [Type 2 diabetes mellitus without complications]Onset: 931476-13-9006WboxdwmHgdagbjp of white blood cells (1 source)Leukocytosis; Translations: [Elevated white blood cell count, unspecified]Onset: 051280-73-0919ImakhznOitihpyxn of lipid metabolism (20 sources)Hyperlipidemia; Translations: [Hyperlipidemia, unspecified]Onset: 615200-85-6307LbktrxtQvyjlruzoz disorders (20 sources)Laryngopharyngeal reflux; Translations: [Gastro-esophageal reflux disease without esophagitis]Onset: 373434-22-3017KbrmqmsDewwwznui hypertension (20 sources)Essential hypertension; Translations: [Essential (primary) hypertension]Onset: 071673-06-3356SyjcdxaNmdwq of unknown origin (1 source)Pyrexia of unknown origin; Translations: [Fever, unspecified] 43-84-1869EcqtlseqUxvdwlgv disorders (20 sources)Hypogammaglobulinemia; 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]Onset: 534260-30-2847JgytbeaRmcoydojkzrxh and screening for infectious disease (20 sources)Anti-nuclear factor positive; Translations: [Other specified abnormal immunological findings in serum]Onset: 64-65-6213EaofvoqlQrsmoxi and fatigue (20 sources)Malaise and fatigue; Translations: [Chronic fatigue, unspecified] Onset: 76-02-7382XhpcwzfEamcronpr disorders (20 sources)Excessive and frequent menstruation with irregular cycle; Translations: [Menometrorrhagia]Onset: 69-53-5198GxpyodoRrgy disorders (20 sources)Recurrent depression; Translations: [Major depressive disorder, recurrent, unspecified]Onset: 553114-24-1315MjqxfeiQymdakx (3 sources)Candidiasis of mouth; Translations: [Candidal stomatitis]04-02-2024 EpisodicNeoplasms of unspecified nature or uncertain behavior (2 sources)Neoplasm of uncertain behavior of skin; Translations: [Neoplasm of uncertain behavior of skin]11-35-2545ImajvdtnAykofqqdnblt breast conditions (20 sources)Mammary duct ectasia; 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]Onset: 646014-65-4842GfffoumQmgbfaychqec breast conditions (20 sources)Discharge from nipple; Translations: [Nipple discharge]Onset: 496104-22-2731JtnddjfxFabiapaqdss deficiencies (20 sources)Vitamin D deficiency; Translations: [Vitamin D deficiency, unspecified]Onset: 66-91-3076SiogialGfzojzvexgepif (20 sources)Degenerative joint disease involving multiple joints; 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]Onset: 72-74-1021MffwsncHpuktdiockzl (20 sources)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; Translations: [Other osteoporosis without current pathological fracture]Onset: 139812-86-8486 ChronicOther aftercare (3 sources)Drug therapy status; Translations: [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]EpisodicOther aftercare (1 source)Polypharmacy ; Translations: [Other longterm (current) drug therapy] EpisodicOther aftercare (1 source)Long-term current use of drug therapy; Translations: [Encounter for longterm current use of azathioprine]81-58-1571KziaatovXkrtf circulatory disease (20 sources)Raynaud's disease; Translations: [Raynaud's syndrome without gangrene]Onset: 844260-92-9343ZezxyilVwwyj circulatory disease (2 sources)Spider nevus; Translations: [Nevus, non-neoplastic]89-20-1076Bytwfkio Other congenital anomalies (1 source)Emanuel-Danlos syndrome; 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, unspecified]74-20-7456AjbaurkUddkr connective tissue disease (1 source)Pain in left foot; Translations: [Pain in left foot]Onset: 09-14-2018 EpisodicOther connective tissue disease (1 source)Pain in right foot; Translations: [Pain in right foot]Onset: 08-85-9899DkqiulfyXxboz connective tissue disease (20 sources)Paraparesis; Translations: [Other symptoms and signs involving the musculoskeletal system]Onset: 843348-15-1057UzbfytzmWndih connective tissue disease (3 sources)Pain of bilateral hands; Translations: [Pain in right hand]10-05-2023 EpisodicOther ear and sense organ disorders (2 sources)Pain of ear structure; Translations: [Otalgia, right ear]04-10-2024 EpisodicOther female genital disorders (2 sources)Abnormal uterine bleeding; Translations: [Abnormal uterine and vaginal bleeding, unspecified]67-97-7900LopzhdjFabtl gastrointestinal disorders (3 sources)Diarrhea, unspecified; Translations: [Diarrhea]59-90-0275Smgrmdlv Other gastrointestinal disorders (17 sources)Abdominal mass; Translations: [Intra-abdominal and pelvic swelling, mass and lump, unspecified site]37-95-3889HaegkvtnFllyx gastrointestinal disorders (17 sources)Burning sensation; Translations: [Other specified symptoms and signs involving the digestive systemand abdomen]49-88-6041XlstowjgKzqco gastrointestinal disorders (17 sources)Abdominal bloating; Translations: [Abdominal distension (gaseous)] 90-42-3135XevxgiuoZydtm gastrointestinal disorders (17 sources)Constipation; Translations: [Constipation, unspecified]12-12-2024 EpisodicOther infections; including parasitic (1 source)Recurrent infectious disease; Translations: [Unspecified infectious disease]63-63-6418ItocfalcYkwld inflammatory condition of skin (20 sources)Discoid lupus erythematosus; 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]Onset: 133825-72-8371ZjxzmtfUqsdp inflammatory condition of skin (4 sources)Discoid lupus erythematosus; Translations: [DISCOID LUPUS ERYTHEMATOSUS]Onset: 27-12-5051LdmhchqGbucr inflammatory condition of skin (10 sources)Lupus erythematosus; 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] Onset: 027994-10-2554BuehczhIwayu inflammatory condition of skin (2 sources)Lupus erythematosus tumidus; 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]14-21-8254RsuqwcmRpbrv inflammatory condition of skin (2 sources)Seborrheic dermatitis; Translations: [Other seborrheic dermatitis] 46-21-1611QavdbdnpRwgwe injuries and conditions due to external causes (1 source)Delayed healing of wound; Translations: [Other injury of unspecified body region, subsequent encounter]EpisodicOther liver diseases (9 sources)Steatosis of liver; Translations: [Fatty (change of) liver, not elsewhere classified]Onset: 285047-78-5719VwyyjryIxgdt lower respiratory disease (2 sources)Snoring; Translations: [Snoring]EpisodicOther nervous system disorders (20 sources)Chronic pain syndrome; Translations: [Chronic pain syndrome]Onset: 892046-21-2737QmzgdjaEizpe nervous system disorders (20 sources)Chronic pain; Translations: [Other chronic pain]63-87-9267Flxasif Other nervous system disorders (20 sources)Disorder of autonomic nervous system; Translations: [Disorder of the autonomic nervous system, unspecified]Onset: 927802-61-8009RurklevToktd nervous system disorders (13 sources)Other chronic pain; Translations: [Other chronic pain]Onset: 819433-13-4230CpvuldgWxioe nervous system disorders (1 source)Numbness; Translations: [Anesthesia of skin]76-23-4441HbyigqkrSatie nervous system disorders (4 sources)Cold extremity; Translations: [Unspecified disturbances of skin sensation]32-02-3191UcqsxbmpOujio non-traumatic joint disorders (1 source)Hypermobility syndrome; Translations: [Other specific joint derangements of unspecified joint, not elsewhere classified]69-82-6662Qgcfmcx Other non-traumatic joint disorders (1 source)Other specific joint derangements of unspecified joint, not elsewhere classified; 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]Onset: 09-19-2024 ChronicOther nutritional; endocrine; and metabolic disorders (20 sources)Obesity; Translations: [Obesity, unspecified]Onset: 09-07-2022 95-65-6240QsfuslaRmuqx nutritional; endocrine; and metabolic disorders (20 sources)Body mass index 40+ - severely obese; Translations: [Morbid (severe) obesity due to excess calories]Onset: 37-87-3334JgnbepgBnikg nutritional; endocrine; and metabolic disorders (20 sources)Insulin resistance; Translations: [Insulin resistance, unspecified] Onset: 741419-10-0748NkbuzcjDypgi nutritional; endocrine; and metabolic disorders (2 sources)Morbid obesity; Translations: [Morbid (severe) obesity due to excess calories]95-62-1887QfhqzitFafvi nutritional; endocrine; and metabolic disorders (2 sources)Morbid (severe) obesity due to excess calories; Translations: [Morbid (severe) obesity due to excess calories (Multi)]Onset: 92-11-7668SlbfuxdHbwsm nutritional; endocrine; and metabolic disorders (1 source)Childhood obesity; Translations: [Obesity, unspecified]03-14-2025 ChronicOther screening for suspected conditions (not mental disorders or infectious disease) (20 sources)Elevated C-reactive protein; Translations: [Elevated C-reactive protein (CRP)]Onset: 19-92-7182MvrtctxbFyotb skin disorders (5 sources)Hidradenitis suppurativa; Translations: [Hidradenitis suppurativa] 79-48-1527SirlegtcGjhwq skin disorders (4 sources)Acne vulgaris; Translations: [Acne vulgaris]08-51-8461TfawmlkpBbsei upper respiratory disease (20 sources)Chronic pharyngolaryngitis; Translations: [Chronic laryngitis]Onset: 607475-27-3507IhlsdtiHbstyiy cyst (1 source)Unspecified ovarian cyst, left side; Translations: [UNSPECIFIED OVARIAN CYST LEFT SIDE]Onset: 74-71-0417ZuwczdukKlkrirjroy and visceral atherosclerosis (2 sources)Peripheral vascular disease; Translations: [Peripheral vascular disease, unspecified]77-50-6773FydypvlBkvkxwcc codes; unclassified (20 sources)Obstructive sleep apnea syndrome; Translations: [Obstructive sleep apnea (adult) (pediatric)]Onset: 26-96-1797BhhvscgUyqwgjod codes; unclassified (3 sources)Obstructive sleep apnea (adult) (pediatric); Translations: [Obstructive sleep apnea (adult) (pediatric)]Onset: 92-54-5336OlhqwpqRcuxexxz codes; unclassified (1 source)Sleep apnea; Translations: [Sleep apnea, unspecified]Onset: 05-20-2022 03-87-5549PyzoqbsTjatcroq codes; unclassified (1 source)Family history of hereditary disease; Translations: [Family history of other specified conditions]EpisodicResidual codes; unclassified (1 source)Family history of malignant neoplasm of breast; Translations: [FAMILY HX MALIG NEOPLASM OF BREAST]Onset: 03-96-5441QanmhoaeYfkxikvt codes; unclassified (1 source)Family history of malignant neoplasm of digestive organs; Translations: [FAM HX MALIG NEOPLASM DIGESTIV ORGN]Onset: 65-38-4252Zqejrryw Residual codes; unclassified (1 source)Bilateral lower limb edema; Translations: [Localized edema]07-13-2023 EpisodicResidual codes; unclassified (1 source)Finding of mouth region; Translations: [Unspecified symptoms and signs involving general sensationsand perceptions]60-97-6864FdvjjnmnPuxnsjmv codes; unclassified (1 source)FH: Cardiovascular disease; Translations: [Family history of ischemic heart disease and other diseases of the circulatory system]73-32-8706Rznazwqm Residual codes; unclassified (2 sources)Family history of cancer; Translations: [Family history of malignant neoplasm, unspecified]17-62-8296WxqaragqMfojaruh codes; unclassified (1 source)FH: Respiratory disease; Translations: [Family history of other diseases of the respiratory system]45-49-8604EkoveathJegfpbbq codes; unclassified (1 source)FH: Aortic aneurysm; Translations: [Family history of ischemic heart disease and other diseases of the circulatory system]49-26-1309XizarvigXfrckizq codes; unclassified (2 sources)Pain; Translations: [Pain, unspecified]08-29-0115QwfypmvaOlpppgam codes; unclassified (1 source)Tobacco dqeq63-49-1813NfrjfbzePjwvzgqsxf arthritis and related disease (4 sources)Rheumatoid arthritis; Translations: [Rheumatoid arthritis, unspecified]Onset: 058325-18-2227DznbrjeXfpo and subcutaneous tissue infections (9 sources)Pilonidal cyst; Translations: [Pilonidal cyst without abscess]Onset: 993724-86-3572TjttpadbPcwifoykayf; intervertebral disc disorders; other back problems (20 sources)Bilateral inflammation of sacroiliac joint; Translations: [Sacroiliitis, not elsewhere classified]Onset: 716567-22-1138Pwrpxfu Substance-related disorders (20 sources)Tobacco user; Translations: [Nicotine dependence, unspecified, uncomplicated]Onset: 636816-39-0396TzwrnynJbzmmqzf lupus erythematosus and connective tissue disorders (20 sources)Systemic lupus erythematosus; Translations: [Other organ or system involvement in systemic lupus erythematosus]Onset: 63-78-1434CfsbmdrRyjmwch disorders (20 sources)Thyroid nodule; Translations: [Nontoxic single thyroid nodule]Onset: 287576-88-0014ScnxjmnEsfpllbtlxmo (1 source)Supraventricular tachycardia, unspecified (CMS-HCC); Translations: [Supraventricular tachycardia, unspecified (CMS-HCC)]Onset: 07-13-2023 Unclassified (8 sources)Call Dr. Donaldson office to schedule a follow up appointment if you do not already have one scheduled Past or Other Problems Problem ClassificationProblemDateDocumented DateEpisodic/ChronicCardiac dysrhythmias (20 sources)Tachycardia, unspecified; Translations: [Tachycardia]Onset: 10-15-2021 Resolved: 38-77-3389NkypjnjtIlxr; stupor; and brain damage (20 sources)Daytime somnolence; Translations: [Somnolence]Onset: 05-20-2022 EpisodicConditions associated with dizziness or vertigo (20 sources)Dizziness; Translations: [Dizziness and giddiness]Onset: 06-01-2023 84-24-2267WklseifdRkdnbovmop and other anemia (20 sources)Megaloblastic anemia due to vitamin B>12< deficiency; Translations: [Other megaloblastic anemias, not elsewhere classified]Onset: 03-04-2022 40-95-2491PmkqmaqzVcdvhhisvm and other anemia (1 source)Anemia, unspecified; Translations: [ANEMIA UNSPECIFIED]Onset: 88-82-7431TuukhoxkSkvdrkwxwi and other anemia (20 sources)Anemia; Translations: [Anemia, unspecified]Onset: 03-11-2022 93-18-9985DlbrzayzMkhsrzbxvw and other anemia (20 sources)Iron deficiency anemia; Translations: [Other iron deficiency anemias]Onset: 298095-12-7175KoqyajjwHdxlaqqmnj and other anemia (1 source)Other megaloblastic anemias, not elsewhere classified; Translations: [Megaloblastic anemia due to vitamin B12 deficiency]Onset: 77-09-4816Ucypgria Deficiency and other anemia (1 source)Other iron deficiency anemias; Translations: [Other iron deficiency anemia]Onset: 76-35-2103SjatnrlsSpbxpprc mellitus without complication (20 sources)Increased glucose level; Translations: [Other abnormal glucose] Onset: 35-12-4388TfzxppleHctzxnuy of mouth; excluding dental (20 sources)Oral lesion; Translations: [Unspecified lesions of oral mucosa] Onset: 568024-88-7062CcomyokmV Codes: Fall (1 source)Fall on same level from slipping, tripping and stumbling without subsequent striking against object, initial encounter; Translations: [FALL SAME LVL SLIP NO STRK OBJ INIT]Onset: 84-62-4748GtykzmncXuzngvuj; including migraine (20 sources)Headache; Translations: [Nonintractable episodic headache]Onset: 504884-78-4036YdgfzmhkVxcdnvdval infection (20 sources)Clostridium difficile diarrhea; Translations: [Enterocolitis due to Clostridium difficile, not specified as recurrent]Onset: EpisodicJoint disorders and dislocations; trauma-related (1 source)Unspecified subluxation of right patella, initial encounter; Translations: [UNS SUBLUXATION RT PATELLA INITIAL]Onset: 64-06-4833Sdnmfphb Lymphadenitis (20 sources)Lymphadenopathy; Translations: [Enlarged lymph nodes, unspecified] Onset: 222994-51-3261EziypfbbSnchxzw and fatigue (4 sources)Malaise and fatigue; Translations: [Other malaise]Onset: 11-29-2024 32-98-6902KtojvsukUfswwivsoxj deficiencies (20 sources)Cobalamin deficiency; Translations: [Deficiency of other specified B group vitamins]Onset: 62-01-1861ZjfstaupJlxyv aftercare (20 sources)Drug therapy finding; Translations: [Other termite control representative (current) drug therapy]Onset: 12-40-5030ElwsbuuoJqjbe aftercare (20 sources)H/O: high risk medication; Translations: [Other longterm (current) drug therapy]Onset: 769926-68-5400MpyqrobxBcfai aftercare (1 source)Other longterm (current) drug therapy; Translations: [OTH TYPEWRITER OPERATOR AUTOMATIC 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 THERAPY]Onset: 81-15-7721LkrhniqvDrzwa aftercare (20 sources)Long-term current use of systemic steroid; Translations: [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 accountant (current) use of systemic steroids]Onset: 525737-23-7941OyjuscacUcpkh connective tissue disease (20 sources)Pain in toe; Translations: [Pain in right toe(s)]Onset: 03-05-2021 EpisodicOther connective tissue disease (20 sources)Fibromyalgia; Translations: [Fibromyalgia]Onset: 28-45-1283Ugmzlcde Other connective tissue disease (20 sources)Other symptoms and signs involving the musculoskeletal system; Translations: [Other musculoskeletalsymptoms referable to limbs]Onset: 752416-26-8039QpafyhjvBephd connective tissue disease (20 sources)Enthesopathy of hip region; Translations: [Other specified enthesopathies of unspecified lower limb, excluding foot]Onset: 07-06-2023 76-71-5228KldbqqtxBllbs connective tissue disease (20 sources)Muscle pain; Translations: [Myalgia, unspecified site]Onset: 135265-20-0136FidgbnkmKwfko connective tissue disease (2 sources)Pain in lower limb; Translations: [Pain in leg, unspecified] 67-67-5774JxbyimetXqpfs gastrointestinal disorders (20 sources)Diarrhea; Translations: [Diarrhea, unspecified]Onset: 03-07-2024 41-07-4466ZmidkxvnWyfav hematologic conditions (20 sources)ESR raised; Translations: [Elevated erythrocyte sedimentation rate] Onset: 77-19-3208ZlbnnnubIouma hematologic conditions (9 sources)Elevated erythrocyte sedimentation rate; Translations: [ELEVATED ERYTHROCYTE SED RATE]Onset: 03-05-2021 Resolved: 32-63-2998OyghfhjhTyzxt infections; including parasitic (20 sources)Disorder due to infection; Translations: [Personal history of other infectious and parasitic diseases]Onset: 084899-98-2180LfwkjppwVvfvl infections; including parasitic (1 source)Personal history of other infectious and parasitic diseases; Translations: [Frequent infections]Onset: 79-91-0360JckayfakDxoaq injuries and conditions due to external causes (3 sources)Unspecified injury of right lower leg, initial encounter; Translations: [UNS INJURY RT LOWER LEG INITIAL ENC]Onset: 79-90-4399Naczwtca Other lower respiratory disease (20 sources)Dyspnea; Translations: [Shortness of breath]Onset: 07-13-2023 84-82-0232WnkqauigAbikf lower respiratory disease (2 sources)Shortness of breath; Translations: [Shortness of breath]Onset: 37-10-5024BeznxydkNdqsz nervous system disorders (20 sources)Ataxia; Translations: [Ataxia, unspecified]Onset: 05-31-2014 16-88-7663HyfxpxxsWaska nervous system disorders (20 sources)Skin sensation disturbance; Translations: [Unspecified disturbances of skin sensation]Onset: 394403-85-2764RutongaeQtmcd nervous system disorders (20 sources)Paresthesia; Translations: [Paresthesia of skin]Onset: 11-08-2023 80-12-9367ZuiskiqsOipmo non-traumatic joint disorders (20 sources)Hip pain; Translations: [Pain in unspecified hip]Onset: 07-06-2023 68-88-4302DmhthdiiNpsbc non-traumatic joint disorders (5 sources)Pain in right knee; Translations: [PAIN IN RIGHT KNEE]Onset: 02-76-7590AhxxumpyXbpbg non-traumatic joint disorders (1 source)Effusion, right knee; Translations: [EFFUSION RIGHT KNEE]Onset: 66-31-1138XfybkjlhSckop non-traumatic joint disorders (20 sources)Bilateral wrist pain; Translations: [Pain in right wrist]Onset: 072704-77-1145ZeiogiioEtutq nutritional; endocrine; and metabolic disorders (20 sources)Obese class II; Translations: [Obesity, unspecified]Onset: 03-09-2022 Resolved: 611434-03-0107VplsduaTaqog nutritional; endocrine; and metabolic disorders (20 sources)Body mass index 30+ - obesity; Translations: [Obesity, unspecified] Onset: 05-31-2014 Resolved: 852219-44-1554IaegzitZzhql nutritional; endocrine; and metabolic disorders (20 sources)History of nutritional deficiency; Translations: [Personal history of other endocrine, nutritional and metabolic disease]Onset: 10-05-2023 16-07-7121MybuvjgbXznbl skin disorders (20 sources)Eruption; Translations: [Rash and other nonspecific skin eruption] Onset: 46-73-9950TwcgzfsjKeuvt skin disorders (20 sources)Loss of hair; Translations: [Nonscarring hair loss, unspecified] Onset: 39-31-2048TgkhvxnoYrxbq upper respiratory disease (20 sources)Hoarse; Translations: [Dysphonia]Onset: 028461-66-3675Sfjwgwbe Residual codes; unclassified (20 sources)FH: Crohn's disease; Translations: [Family history of other diseases of the digestive system]Onset: 42-51-8560SllexxkyCqtocxzv codes; unclassified (3 sources)Flushing; Translations: [FLUSHING]Onset: 10-15-2021 Resolved: 26-43-1730CkkxgoihOewfrzbi codes; unclassified (1 source)Family history of ischemic heart disease and other diseases of the circulatory system; Translations: [Family history of aortic aneurysm]Onset: 62-80-5543GnpmplvpRqtizfhqcfl; intervertebral disc disorders; other back problems (20 sources)Chronic low back pain; Translations: [Lumbago with sciatica, left side]Onset: 03-27-6661YzzdrfwzAbxvenaauuwf (2 sources)Onset: 07-13-2023 Resolved: 834897-80-0640Lyqpnodspzoe (1 source)Supraventricular tachycardia, unspecified (CMS-HCC); Translations: [Supraventricular tachycardia, unspecified (CMS-HCC)]Onset: 18-49-1804Bqnxf infection (20 sources)Cytomegaloviral disease, unspecified; 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]Onset: 09-11-2021 Resolved: 21-13-4158Tktileie Results Test NameValueInterpretationReference RangeFacilityCBC W Auto Differential panel (Bld)on 71-00-1523Xhewdzoov (Bld) [#/Vol]0.10 10*3/uLNormal<0.11CPremier Health [facility] on above:Order Comment: Specimen Type: BLOOD SPECIMENOrdering Facility: [facility] Address:[address] [place], [place] [address]Performed By: #### 07878-1 ####[facility] LABCLIA [id number] [place], [place] [address]Hfzucbqnq/100 WBC (Bld)0.8 % NormalJoint Township District Memorial Hospital on above:Order Comment: Specimen Type: BLOOD SPECIMENOrdering Facility: [facility] Address:[address] [id number] By: #### 94565-7 ####[facility] LABCLIA [id number] [place] [address] Differential cell count method Nom (Bld)AutoNormalClevelUNC Health [facility] Comment on above:Order Comment: Specimen Type: BLOOD SPECIMENOrdering Facility: [facility] Address:[address] [place] [address] Performed By: #### 21463-6 ####[facility] LABCLIA [id number] [place], [place] [address]Dhnxuucsqbs (Bld) [#/Vol]0.14 10*3/uLNormal<0.46[facility] on above:Order Comment: Specimen Type: BLOOD SPECIMENOrdering Facility: [facility] Address:[address] [place], [place] [address]Performed By: #### 23819-6 ####[facility] LABIA [id number] [place], [place] [address]Uietxcwbgqq/100 WBC (Bld)1.1 %NormalJoint Township District Memorial Hospital on above:Order Comment: Specimen Type: BLOOD SPECIMENOrdering Facility: [facility] Address:[address] [place], [place] [address]Performed By: #### 31348-5 ####[facility] LABIA [id number] [place], [place] [address]Loqsunfsrwg distribution width (RBC) [Ratio]14.1 %Bhujut23.5-15.0[facility] on above: Order Comment: Specimen Type: BLOOD SPECIMENOrdering Facility: [facility] Address:[address] [place], [place] [address]Performed By: #### 67574- 8 ####[facility] LABIA [id number] [place], [place] [address]Lldbhjnzav (Bld) [Volume fraction]44.4 %Uyctwh68.0-46.0 [facility] on above:Order Comment: Specimen Type: BLOOD SPECIMENOrdering Facility: [facility] Address:[address] [place], [place] [address]Performed By: #### 81844-6 ####[facility] LABIA [id number] [place], [place] [address]Vznltsgvbh (Bld) [Mass/Vol]14.9 g/gVMhgdnk86.5-15.5CPremier Health [facility] on above: Order Comment: Specimen Type: BLOOD SPECIMENOrdering Facility: [facility] Address:[address] [place], [place] [address]Performed By: #### 21973- 8 ####[facility] LABIA [id number] [place], [place] [address]Xaptfccc granulocytes (Bld) [#/Vol]0.16 10*3/uLHigh<0.10 [facility] on above:Order Comment: Specimen Type: BLOOD SPECIMENOrdering Facility: [facility] Address:[address] [place], [place] [address]Performed By: #### 86045-1 ####[facility] LABIA [id number] [place], [place] [address]Xwuhejwg granulocytes/100 WBC (Bld)1.2 %NormalJoint Township District Memorial Hospital on above: Order Comment: Specimen Type: BLOOD SPECIMENOrdering Facility: [facility] Address:[address] [place], [place] [address]Performed By: #### 93370- 8 ####[facility] LABCLIA [id number] [place], [place] [address]Bhqsyrphsbz (Bld) [#/Vol]1.94 10*3/uLNormal1.00-4.00 [facility] on above:Order Comment: Specimen Type: BLOOD SPECIMENOrdering Facility: [facility] Address:[address] [place], [place] [address]Performed By: #### 92636-7 ####[facility] LABIA [id number] [place], [place] [address]Kwofsdahjuq/100 WBC (Bld)14.9 %NormalJoint Township District Memorial Hospital on above:Order Comment: Specimen Type: BLOOD SPECIMENOrdering Facility: [facility] Address:[address] [place], [place] [address]Performed By: #### 84338-7 ####[facility] LABCLIA [id number] [place], [place] [address]HXJ (RBC) [Entitic mass]31.8 aqXmvcbt84.0-34.0[facility] on above:Order Comment: Specimen Type: BLOOD SPECIMENOrdering Facility: [facility] Address:[address] [place], [place] [address]Performed By: #### 76145-0 ####[facility] LABCLIA [id number] [place], [place] [address]VXKF (RBC) [Mass/Vol]33.6 g/qHKqrliz27.5-36.0[facility] on above: Order Comment: Specimen Type: BLOOD SPECIMENOrdering Facility: [facility] Address:[address] [place], [place] [address]Performed By: #### 36314- 8 ####[facility] LABCLIA [id number] [place], [place] [address]DWN (RBC) [Entitic vol]94.9 wJTakhbh19.0-100.0[facility] on above:Order Comment: Specimen Type: BLOOD SPECIMENOrdering Facility: [facility] Address:[address] [place], [place] [address]Performed By: #### 84117-0 ####[facility] LABIA [id number] [place], [place] [address]Opvkeldff (Bld) [#/Vol]0.94 10*3/uLHigh<0.87[facility] on above:Order Comment: Specimen Type: BLOOD SPECIMENOrdering Facility: [facility] Address:[address] [place], [place] [address]Performed By: #### 81875- 8 ####[facility] LABCLIA [id number] [place], [place] [address]Xtawfwpbi/100 WBC (Bld)7.2 %NormalJoint Township District Memorial Hospital on above:Order Comment: Specimen Type: BLOOD SPECIMENOrdering Facility: [facility] Address:[address] [place], [place] [address]Performed By: #### 36163-2 ####[facility] LABCLIA [id number] [place], [place] [address]Rbdrtyrclaj (Bld) [#/Vol]9.74 10*3/uLHigh1.45-7.50[facility] on above:Order Comment: Specimen Type: BLOOD SPECIMENOrdering Facility: [facility] Address:[address] [place], [place] [address]Performed By: #### 85270-7 ####[facility]ITALDAPHNE [facility] LABCLIA [id number] [place], [place] [address]Zvafrflotsr/100 WBC (Bld)74.8 %NormalJoint Township District Memorial Hospital on above:Order Comment: Specimen Type: BLOOD SPECIMENOrdering Facility: [facility] Address:[address] [place], [place] [address]Performed By: #### 10694-6 ####[facility] LABCLIA [id number] [place], [place] [address]Sqgsyglbb RBC (Bld) [#/Vol] 10*3/uLNormal<0.01[facility] on above:Order Comment: Specimen Type: BLOOD SPECIMENOrdering Facility: [facility] Address:[address] [place], [place] [address]Performed By: #### 60811-0 ####[facility] LABCLIA [id number] [place], [place] [address]Pcggtgmdh RBC/100 WBC (Bld) [Ratio]0.0 /100 WBCNormal [facility] on above:Order Comment: Specimen Type: BLOOD SPECIMENOrdering Facility: [facility] Address:[address] [place], [place] [address]Performed By: #### 06622-4 ####[facility] LABCLIA [id number] [place], [place] [address]Uyfuspum mean volume (Bld) [Entitic vol]10.3 fLNormal9.0-12.7CPremier Health [facility] on above:Order Comment: Specimen Type: BLOOD SPECIMENOrdering Facility: [facility] Address:[address] [place] [address] Performed By: #### 10017-1 ####[facility] LABCLIA [id number] [place], [place] [address]Ewqrvcbjc (Bld) [#/Vol]319 10*3/kFBsrliq813-817FfdecbkcpJoint Township District [facility] on above:Order Comment: Specimen Type: BLOOD SPECIMENOrdering Facility: [facility] Address:[address] [place], [place] [address]Performed By: #### 46820-1 ####[facility] LABCLIA [id number] [place], [place] [address]FHV (Bld) [#/Vol]4.68 10*6/uLNormal3.90-5.20[facility] on above:Order Comment: Specimen Type: BLOOD SPECIMENOrdering Facility: [facility] Address:[address] [place], [place] [address]Performed By: #### 88314-8 ####[facility] LABCLIA [id number] [place], [place] [address]OOU (Bld) [#/Vol]13.02 10*3/uLHigh3.70-11.00[facility] on above: Order Comment: Specimen Type: BLOOD SPECIMENOrdering Facility: [facility] Address:[address] [place], [place] [address]Performed By: #### 73435- 8 ####[facility] LABCLIA [id number] [facility] [place], [place] [address]Nuqokatsenuot metabolic 2000 panelon 41-82-1451Sxhdsnk [Mass/Vol]4.3 g/dLNormal3.9-4.9CPremier Health [facility] on above:Order Comment: Specimen Type: BLOOD SPECIMENOrdering Facility: [facility] Address:[address] [place], [place] [address]Performed By: #### 25626- 8 ####[facility] LABCLIA [id number] [facility] [place], [place] [address]YHW [Catalytic activity/Vol]80 U/YDjskiq89-364BldhzbttnJoint [facility] on above:Order Comment: Specimen Type: BLOOD SPECIMENOrdering Facility: [facility] Address:[address] [place], [place] [address]Performed By: #### 11554-3 ####[facility] LABCLIA [id number] [place], [place] [address]AOJ [Catalytic activity/Vol]37 U/LNormal7-38[facility] on above:Order Comment: Specimen Type: BLOOD SPECIMENOrdering Facility: [facility] Address:[address] [place], [place] [address]Performed By: #### 97323- 8 ####[facility] LABCLIA [id number] [facility] [place], [place] [address]Zgthd gap [Moles/Vol]15 mmol/LNormal8-15[facility] on above:Order Comment: Specimen Type: BLOOD SPECIMENOrdering Facility: [facility] Address:[address] [place], [place] [address]Performed By: #### 83700-7 ####[facility] LABCLIA [id number] [place], [place] [address]OGE [Catalytic activity/Vol]18 U/VVczixd65-02UomerjcldJoint Township District Memorial Hospital on above:Order Comment: Specimen Type: BLOOD SPECIMENOrdering Facility: [facility] Address:[address] [place], [place] [address]Performed By: #### 63948-8 ####[facility] LABCLIA [id number] [place] [address] Bilirubin [Mass/Vol]0.2 mg/dLNormal0.2-1.3CPremier Health [facility] on above:Order Comment: Specimen Type: BLOOD SPECIMENOrdering Facility: [facility] Address:[address] [place], [place] [address]Performed By: #### 83333-8 ####[facility]APH[facility] LABCLIA [id number] [facility] [place] [address]Gdcvsuz [Mass/Vol]10.0 mg/dLNormal8.5-10.2CPremier Health [facility] on above:Order Comment: Specimen Type: BLOOD SPECIMENOrdering Facility: [facility] Address:[address] [place], [place] [address]Performed By: #### 79082-9 ####[facility] LABCLIA [id number] [facility], [place] [address]Aaawhaiu [Moles/Vol]104 mmol/QFqigta55-934BcluzsbhwJoint [facility] on above: Order Comment: Specimen Type: BLOOD SPECIMENOrdering Facility: [facility] Address:[address] [place], [place] [address]Performed By: #### 07053- 8 ####[facility] LABCLIA [id number] [facility] [place], [place] [address]IN5 [Moles/Vol]22 mmol/ASzxllx12-81JirjopgyyJoint Township District [facility] Hospital on above:Order Comment: Specimen Type: BLOOD SPECIMENOrdering Facility: [facility] Address:[address] [place], [place] [address]Performed By: #### 23867-9 ####[facility] LABCLIA [id number] [place], [place] [address]Nbzgvizdkl [Mass/Vol]0.51 mg/dL Low0.58-0.96[facility] on above:Order Comment: Specimen Type: BLOOD SPECIMENOrdering Facility: [facility] Address:[address] [place], [place] [address]Performed By: #### 25037-6 ####[facility] LABCLIA [id number] [place] [address] eGFRcr SerPlBld CKD-EPI 4557163 mL/min/1.73m???Normal>=60[facility] on above:Order Comment: Specimen Type: BLOOD SPECIMENOrdering Facility: [facility] Address:[address] [place], [place] [address]Result Comment: Estimated Glomerular Filtration Rate (eGFR) is [...] accurately reflect actual GFR. Performed By: #### 73779-4 ####[facility] LABCLIA [id number] [place], [place] [address]Siepvff [Mass/Vol]193 mg/dLHigh 74-99[facility] on above:Order Comment: Specimen Type: BLOOD SPECIMENOrdering Facility: [facility] Address:[address] [place], [place] [address]Result Comment: The [place] [employer] (ADA) provides guidance for cutoff [...] Standards of Medical Care in Diabetes 2016, [place] [employer]. Diabetes Care. 2016.39(Suppl 1).Performed By: #### 25760-0 ####[facility] LABCLIA [id number] [place], [place] [address]Nzombfedv [Moles/Vol]4.0 mmol/LNormal3.7-5.1CPremier Health [facility] on above:Order Comment: Specimen Type: BLOOD SPECIMENOrdering Facility: [facility] Address:[address] [place], [place] [address]Performed By: #### 63117-3 ####[facility] LABCLIA [id number] [place], [place] [address]Kyldhkp [Mass/Vol]7.4 g/dLNormal6.3-8.0[facility] on above:Order Comment: Specimen Type: BLOOD SPECIMENOrdering Facility: [facility] Address:[address] [place], [place] [address]Performed By: #### 04161- 8 ####[facility] LABCLIA [id number] [place], [place] [address]Ioqmge [Moles/Vol]141 mmol/GPgzjft230-568YimpqmqzfJoint Township District [facility] on above:Order Comment: Specimen Type: BLOOD SPECIMENOrdering Facility: [facility] Address:[address] [place], [place] [address]Performed By: #### 49786-1 ####[facility] LABCLIA [id number] [place], [place] [address]Vpsy nitrogen [Mass/Vol]16 mg/dLNormal7-21[facility] on above:Order Comment: Specimen Type: BLOOD SPECIMENOrdering Facility: [facility] Address:[address] [place], [place] [address]Performed By: #### 01128-8 ####[facility] LABCLIA [id number] [place], [place] [address]HFKJOLQCRWDRPOY,IGG,IGA,IGMon 19-65-6579HyD [Mass/Vol]167 mg/mFUihcdn31-524UldniiwykJoint [facility] on above:Order Comment: Specimen Type: BLOOD SPECIMENOrdering Facility: [facility] Address:[address] [place], [place] [address]Performed By: #### SERIMM ####[facility] LABCLIA [id number] [place] [address] [place] AMERICAIgG [Mass/Vol]579 mg/qHPxp265-3122CarmhuelxJoint Township District [facility] on above:Order Comment: Specimen Type: BLOOD SPECIMENOrdering Facility: [facility] Address:[address] [place], [place] [address]Performed By: #### SERIMM ####[facility] LABCLIA [id number] [place] [address] [place] AMERICAIgM [Mass/Vol]391 mg/dL Hgjt37-290VkrrggthzJoint [facility] District [facility] on above:Order Comment: Specimen Type: BLOOD SPECIMENOrdering Facility: [facility] Address:[address] [place], [place] [address]Performed By: #### SERIMM ####[facility] LABCLIA [id number] [place] [id number] [place] OF AMERICACNPNon 37-75-0771IIZAWiuywzWmxnqgoxb Clinic ClevelandWOUND CULTUREon 84-89-9835GLLXS CULTURESPECIMEN DESCRIPTION WOUND SPECIAL REQUESTS RIGHT NIPPLE DISCHARGE GRAM SMEAR NO * Result Note: WBC'S SEEN * * Result Note: NO ORGANISMS SEEN * COLONY COUNT LIGHT GROWTH CULTURE STAPHYLOCOCCUS EPIDERMIDIS * Result Note: Testing performed at [place], [place] [address] * REPORT STATUS 03/18/2025 * Result Note: FINAL * ORGANISM STAPHYLOCOCCUS EPIDERMIDIS * Result Note: STAPHYLOCOCCUS EPIDERMIDIS * METHOD ELPIDIO CLINDAMYCIN >=8 RESISTANT ERYTHROMYCIN >=8 RESISTANT GENTAMICIN <=0.5 SUSCEPTIBLE PENICILLIN G >=0.5 RESISTANT RIFAMPIN <=0.5 SUSCEPTIBLE TETRACYCLINE 2 SUSCEPTIBLE TRIMETH-SULFA 80 RESISTANT VANCOMYCIN 1 SUSCEPTIBLE LEVOFLOXACIN >=8 RESISTANT OXACILLIN >=4 RESISTANT LINEZOLID 2 SUSCEPTIBLE INDUCIBLE CLINDAMYCIN RESISTANCE NEGATIVENoMetroHealth Cleveland Heights Medical CenterComment on above:Performed By: #### WDC #### [place] [address] Testing performed at [place], [place] [address]WOUND CULTUREon 60-37-9679PLQQA CULTURESPECIMEN DESCRIPTION WOUND SPECIAL REQUESTS LEFT NIPPLE DISCHARGE GRAM SMEAR NO * Result Note: WBC'S SEEN * * Result Note: NO ORGANISMS SEEN * CULTURE NO GROWTH 2 DAYS * Result Note: Testing performed at [place] [address] * REPORT STATUS 03/16/2025 * Result Note: FINAL *[facility], AvonComment on above:Performed By: #### WDC #### [place] [address] Testing performed at [place] [id number] Cultureon 87-43-9139Bpjaryrl identified Cx Nom (U)<9,000 colonies/ml mixed bacterial skin contaminants 2 Days PERFORMED BY: [place] [address] PATHOLOGIST NET COORDINATOR TIM FOOTE M.D.[facility] Physician GroupComment on above: Performed By: #### CUU #### [place] [address] USAUrine cultureOrdered By: Gay De La Torre on 03-09-2025 Bacteria identified Cx Nom (U)2 DaysCity [facility] Cultureon 52-07-0334Fyrjjewm identified Cx Nom (U)ORGANISM: Christine albicans (O:CANALB) [place] Count >100,000 PERFORMED BY: [facility] [address] [place] [address] PATHOLOGIST NET COORDINATOR TIM FOOTE M.D.[facility] Physician GroupComment on above: Performed By: #### CUU #### [facility] [address] [place] [address] USAUrine cultureOrdered By: Jose Perez on 03-03-2025 Bacteria identified Cx Nom (U)Christine albicansAbnoAultman HospitalAerobic Cultureon 58-08-5507Egtllgg CultureComment pilonidal abscess culture ORGANISM: Serratia marcescens (O:SERMAR) Quantity of Growth Light Growth Comment pilonidal abscess culture ORGANISM: Prevotella species (O:PRESP) Comments . Quantity of Growth Light Growth Send Test to Ref. Lab Sent to [employer] for CHRISTIAN ID Identification performed at: [employer] [id number] Washing Machine Loader And Puller: Doyle Mendenhall PhD, Phone: [phone] Please contact Microbiology within 7 days if [...] RESISTANT TO ALL B-LACTAM DRUGS. PERFORMED BY: [facility] [address] [place] [id number] PATHOLOGIST NET COORDINATOR TIM FOOTE M.D.NormalAdventhealth Daytona Beach Physician GroupComment on above: Performed By: #### AERC #### [facility] [address] [place] [id number] USAAerobic cultureOrdered By: Terence Blum on 03-02-2025 Bacteria identified Aer cx Nom (Unsp spec)Serratia marcescensAbnoAultman HospitalGram stain microscopyOrdered By: Terence Blum on 50-83-3382Imiyxxtpcsk observation Gram stain Nom (Unsp spec)[facility] Medical CenterLon 03-02-2025L Specimen: [id number] Received: 03/05/25 Status: BAIRON Garcia Num: [id number] Spec Type: Surgical Subm Dr: Terence Blum MD Tissues: A Pilonidal Cyst (PRODUCT OF DEBRIDEMENT) Procedures: HE/2, Gross/Micro L3 Age/ Patient Sex Location Account Attending Physician Ariadna Haley 44/F [place] [id number] Terence Blum MD SPEC NUM: [id number] RECD: 03/05/25 STATUS: BAIRON COLEGonzalez NUM: [id number] EDITA: 03/02/[address]: Terence Blum MD ENTERED: 03/05/[address] [facility] [address]: DANIELLA TYPE: Surgical DEPT: S ENTERED BY: [id number] RECV BY: [id number] ORDERED: HE/2, Gross/Micro L3 ORDERED: HE/2, Gross/Micro [...] each specimen submitted in A2. (2, ns, [id number] A) CPT Codes 05356 Specimen: [id number] Received: 03/05/25 Status: BAIRON Colegonzalez Num: [id number] Spec Type: Surgical Subm Dr: Terence Blum MD Tissues: A Pilonidal Cyst (PRODUCT OF DEBRIDEMENT) Procedures: HE/2, Gross/Micro L3 Patient: Ariadna Haley [id number] (Continued) Signed (signature on file) Merry Grajeda MD 03/06/25 1111 [facility] [id number] identified Cx Nom (U)20,000 colonies/ml mixed bacterial skin contaminants including mixed gram negative bacilli - 2 Days PERFORMED BY: [facility] [address]. [place] [id number] PATHOLOGIST NET COORDINATOR TIM FOOTE M.D.NormalAdventhealth Daytona Beach Physician GroupComment on above: Performed By: #### CUU #### [facility] [address] [place] [address] USAUrine cultureOrdered By: Mathew Ji on 02-26-2025 Bacteria identified Cx Nom (U)bacilli - 2 DaysC[facility]innati [facility] CBC W Auto Differential panel (Bld)on 40-67-3861Xamxbxuhn (Bld) [#/Vol]0.09 10*3/uLNormal<0.11CPremier Health [facility] on above:Order Comment: Specimen Type: BLOOD SPECIMENOrdering Facility: [facility] Address:[address] [place], [place] [address]Performed By: #### 91123-8 ####[facility] LABCLIA [id number] [place], [place] [address]Ggiuegctk/100 WBC (Bld)0.7 %NormalTrihealth Mccullough-Hyde Memorial HospitalComcorewell health [facility] on above:Order Comment: Specimen Type: BLOOD SPECIMENOrdering Facility: [facility] Address:[address] [place], [place] [address]Performed By: #### 99872-7 ####[facility] LABCLIA [id number] [place], [place] [address]Pfqywiqvimni cell count method Nom (Bld)AutoNormalCPremier Health Upper Valley [facility] on above:Order Comment: Specimen Type: BLOOD SPECIMENOrdering Facility: [facility] Address:[address] [place], [place] [address]Performed By: #### 29142-6 ####[facility] LABCLIA [id number] [place], [place] [address]Niibncgmhfk (Bld) [#/Vol]0.11 10*3/uLNormal<0.46[facility] on above:Order Comment: Specimen Type: BLOOD SPECIMENOrdering Facility: [facility] Address:[address] [place], [place] [address]Performed By: #### 24124-7 ####[facility] LABIA [id number] [place], [place] [address]Dscoafzjnon/100 WBC (Bld)0.8 %NormalJoint Township District Memorial Hospital on above:Order Comment: Specimen Type: BLOOD SPECIMENOrdering Facility: [facility] Address:[address] [place], [place] [address]Performed By: #### 48740-8 ####[facility] LABIA [id number] [place], [place] [address]Bzuqdbjnzra distribution width (RBC) [Ratio]14.3 %Normal 11.5-15.0[facility] on above:Order Comment: Specimen Type: BLOOD SPECIMENOrdering Facility: [facility] Address:[address] [place], [place] [address]Performed By: #### 91444-3 ####[facility] LABIA [id number] [place] [address] Hematocrit (Bld) [Volume fraction]46.0 %Rrrptw22.0-46.0[facility] on above:Order Comment: Specimen Type: BLOOD SPECIMENOrdering Facility: [facility] Address:[address] [place], [place] [address]Performed By: #### 19221-6 ####[facility] LABIA [id number] [place], [place] [address]Phqhuhcwfe (Bld) [Mass/Vol]15.1 g/iCBorsuq93.5-15.5CPremier Health Upper [facility] on above:Order Comment: Specimen Type: BLOOD SPECIMENOrdering Facility: [facility] Address:[address] [place], [place] [address]Performed By: #### 54876-4 ####[facility] LABIA [id number] [place], [place] [address]Iqqbulgb granulocytes (Bld) [#/Vol]0.21 10*3/uLHigh<0.10 [facility] on above:Order Comment: Specimen Type: BLOOD SPECIMENOrdering Facility: [facility] Address:[address] [place], [place] [address]Performed By: #### 58769-4 ####[facility] LABCLIA [id number] [place], [place] [address]Wlgcgpmn granulocytes/100 WBC (Bld)1.6 %NormalJoint Township District Memorial Hospital on above: Order Comment: Specimen Type: BLOOD SPECIMENOrdering Facility: [facility] Address:[address] [place], [place] [address]Performed By: #### 98404- 8 ####[facility] LABIA [id number] [place], [place] [address]Gwnziwcogio (Bld) [#/Vol]1.89 10*3/uLNormal1.00-4.00 [facility] on above:Order Comment: Specimen Type: BLOOD SPECIMENOrdering Facility: [facility] Address:[address] [place], [place] [address]Performed By: #### 18306-1 ####[facility] LABIA [id number] [place], [place] [address]Iktfiooatqb/100 WBC (Bld)14.4 %NormalJoint Township District Memorial Hospital on above:Order Comment: Specimen Type: BLOOD SPECIMENOrdering Facility: [facility] Address:[address] [place], [place] [address]Performed By: #### 14567-1 ####[facility] LABIA [id number] [place], [place] [address]YBO (RBC) [Entitic mass]31.7 erFkigho97.0-34.0[facility] on above:Order Comment: Specimen Type: BLOOD SPECIMENOrdering Facility: [facility] Address:[address] [place], [place] [address]Performed By: #### 86057-9 ####[facility] LABCLIA [id number] [place], [place] [address]JTOJ (RBC) [Mass/Vol]32.8 g/bVUinmay00.5-36.0[facility] on above: Order Comment: Specimen Type: BLOOD SPECIMENOrdering Facility: [facility] Address:[address] [place], [place] [address]Performed By: #### 42749- 8 ####[facility] LABCLIA [id number] [place], [place] [address]JDA (RBC) [Entitic vol]96.4 lQTustjy36.0-100.0[facility] on above:Order Comment: Specimen Type: BLOOD SPECIMENOrdering Facility: [facility] Address:[address] [place], [place] [address]Performed By: #### 00161-0 ####[facility] LABIA [id number] [place], [place] [address]Awfaygmyn (Bld) [#/Vol]0.92 10*3/uLHigh<0.87[facility] on above:Order Comment: Specimen Type: BLOOD SPECIMENOrdering Facility: [facility] Address:[address] [place], [place] [address]Performed By: #### 76141- 8 ####[facility] LABCLIA [id number] [place], [place] [address]Hlwzysrpq/100 WBC (Bld)7.0 %NormalJoint Township District Memorial Hospital on above:Order Comment: Specimen Type: BLOOD SPECIMENOrdering Facility: [facility] Address:[address] [place], [place] [address]Performed By: #### 86371-1 ####[facility] LABCLIA [id number] [place], [place] [address]Nomsnovxlvb (Bld) [#/Vol]9.94 10*3/uLHigh1.45-7.50[facility] on above:Order Comment: Specimen Type: BLOOD SPECIMENOrdering Facility: [facility] Address:[address] [place], [place] [address]Performed By: #### 24677-2 ####[facility] LABCLIA [id number] [place], [place] [address]Thcdxwjmsoq/100 WBC (Bld)75.5 %NormalJoint Township District Memorial Hospital on above:Order Comment: Specimen Type: BLOOD SPECIMENOrdering Facility: [facility] Address:[address] [place], [place] [address]Performed By: #### 32350-7 ####[facility] LABCLIA [id number] [place], [place] [address]Yeckatchs RBC (Bld) [#/Vol] 10*3/uLNormal<0.01[facility] on above:Order Comment: Specimen Type: BLOOD SPECIMENOrdering Facility: [facility] Address:[address] [place], [place] [address]Performed By: #### 69587-3 ####[facility] LABCLIA [id number] [place], [place] [address]Aptkvbgcj RBC/100 WBC (Bld) [Ratio]0.0 /100 WBCNormal [facility] on above:Order Comment: Specimen Type: BLOOD SPECIMENOrdering Facility: [facility] Address:[address] [place], [place] [address]Performed By: #### 84111-2 ####[facility] LABIA [id number] [place], [place] [address]Vyskyhmd mean volume (Bld) [Entitic vol]9.9 fLNormal9.0-12.7CPremier Health Upper [facility] on above:Order Comment: Specimen Type: BLOOD SPECIMENOrdering Facility: [facility] Address:[address] [place] [address] Performed By: #### 03931-1 ####[facility] LABCLIA [id number] [place], [place] [address]Waoopvszq (Bld) [#/Vol]305 10*3/oGIyiuzo857-055PawuremwnJoint Township District [facility] Hospital on above:Order Comment: Specimen Type: BLOOD SPECIMENOrdering Facility: [facility] Address:[address] [place], [place] [address]Performed By: #### 17391-2 ####[facility] LABCLIA [id number] [place], [place] [address]FOQ (Bld) [#/Vol]4.77 10*6/uLNormal3.90-5.20[facility] on above:Order Comment: Specimen Type: BLOOD SPECIMENOrdering Facility: [facility] Address:[address] [place], [place] [address]Performed By: #### 37082-1 ####[facility] LABCLIA [id number] [place], [place] [address]RPX (Bld) [#/Vol]13.16 10*3/uLHigh3.70-11.00[facility] on above: Order Comment: Specimen Type: BLOOD SPECIMENOrdering Facility: [facility] Address:[address] [place], [place] [address]Performed By: #### 80699- 8 ####[facility] LABIA [id number] [place], [place] [address]HKIGYMeb 64-35-2689TCWQKKDxcbskOypuyamvs Clinic Cleveland CNPNon 95-88-3505UAWLTztgvnYgsndoajd Clinic ClevelandComprehensive metabolic 2000 panelon 15-86-4150Jiyilza [Mass/Vol]4.3 g/dLNormal3.9-4.9CPremier Health [facility] on above:Order Comment: Specimen Type: BLOOD SPECIMENOrdering Facility: [facility] Address:[address] [place], [place] [address]Performed By: #### 68546-6 ####[facility]IGIOKDAPHNE [facility] LABCLIA [id number] [facility] BARNESOAS[facility] HEALTH HOSPITALAMAYAGRANITE [place]ALL[place], [place] [address]TLH [Catalytic activity/Vol]83 U/LQzsqlq00-169ImshfmixyJoint [facility] District [facility] Hospital on above:Order Comment: Specimen Type: BLOOD SPECIMENOrdering Facility: [facility] Address:[address] [place], [place] [address]Performed By: #### 08105-1 ####[facility] HOSPITALDAPHNE [facility] LABCLIA [id number] OSORIO DRIVEROASIS BEHAVIORAL HEALTH HOSPITALAMAYAGRANITE [place]ALL[place], [place] [address]VWU [Catalytic activity/Vol]49 U/LHigh7-38[facility] on above:Order Comment: Specimen Type: BLOOD SPECIMENOrdering Facility: [facility] Address:[address] [place], [place] [address]Performed By: #### 39582-5 ####[facility] LABCLIA [id number] [facility] [place], [place] [address]Dibwh gap [Moles/Vol]17 mmol/LHigh8-15[facility] on above:Order Comment: Specimen Type: BLOOD SPECIMENOrdering Facility: [facility] Address:[address] [place], [place] [address]Performed By: #### 86007- 8 ####[facility] HOSPITALDAPHNE [facility] LABCLIA [id number] OSORIO DRIVEROASIS BEHAVIORAL HEALTH HOSPITALCAYDENRIPON, [place] [address]KJD [Catalytic activity/Vol]20 U/MCdwbjf78-07YnzefhcqyJoint Township District [facility] Hospital on above:Order Comment: Specimen Type: BLOOD SPECIMENOrdering Facility: [facility] Address:[address] [place], [place] [address]Performed By: #### 56615-4 ####[facility] LABCLIA [id number] KERRI JAMAGGYOASIS BEHAVIORAL HEALTH HOSPITALCAYDENRIPON, [place] [address]Llbsoldoo [Mass/Vol]0.3 mg/dLNormal0.2-1.3CPremier Health [facility] on above:Order Comment: Specimen Type: BLOOD SPECIMENOrdering Facility: [facility] Address:[address] [place], [place] [address]Performed By: #### 94145- 8 ####[facility] LABCLIA [id number] [place], [place] [address]Gnkmatm [Mass/Vol]10.2 mg/dLNormal8.5-10.2CPremier Health [facility] on above:Order Comment: Specimen Type: BLOOD SPECIMENOrdering Facility: [facility] Address:[address] [place], [place] [address]Performed By: #### 61471-0 ####[facility] LABCLIA [id number] [place], [place] [address]Erjxowge [Moles/Vol]101 mmol/DGhcfby87-496UsdbgeqzyJoint [facility] District [facility] Hospital on above: Order Comment: Specimen Type: BLOOD SPECIMENOrdering Facility: [facility] Address:[address] [place], [place] [address]Performed By: #### 42957- 8 ####[facility] LABCLIA [id number] [place], [place] [address]RM0 [Moles/Vol]20 mmol/ALzo25-39SndzhzkwhJoint Township District Memorial Hospital on above:Order Comment: Specimen Type: BLOOD SPECIMENOrdering Facility: [facility] Address:[address] [place], [place] [address]Performed By: #### 10308-4 ####[facility] LABCLIA [id number] [place], [place] [address]Eqncnuvyyq [Mass/Vol]0.49 mg/dL Low0.58-0.96[facility] on above:Order Comment: Specimen Type: BLOOD SPECIMENOrdering Facility: [facility] Address:[address] [place], [place] [address]Performed By: #### 86266-9 ####[facility] LABIA [id number] [place] [address] eGFRcr SerPlBld CKD-EPI 5625077 mL/min/1.73m???Normal>=60[facility] on above:Order Comment: Specimen Type: BLOOD SPECIMENOrdering Facility: [facility] Address:[address] [place], [place] [address]Dadrsj Comment: Estimated Glomerular Filtration Rate (eGFR) is [...] accurately reflect actual GFR. Performed By: #### 18345-3 ####[facility] LABCLIA [id number] [place], [place] [address]Wfxgwqk [Mass/Vol]248 mg/dLHigh 74-99[facility] on above:Order Comment: Specimen Type: BLOOD SPECIMENOrdering Facility: [facility] Address:[address] [place], [place] [address]Btklwl Comment: The [place] Diabetes Association (ADA) provides guidance for cutoff [...] Standards of Medical Care in Diabetes 2016, [place] [employer]. Diabetes Care. 2016.39(Suppl 1).Performed By: #### 59499-5 ####[facility] LABCLIA [id number] [place], [place] [address]Afzfxssea [Moles/Vol]4.1 mmol/LNormal3.7-5.1CPremier Health Upper Valley [facility] on above:Order Comment: Specimen Type: BLOOD SPECIMENOrdering Facility: [facility] Address:[address] [place], [place] [address]Performed By: #### 98650-0 ####[facility] LABCLIA [id number] [place], [place] [address]Qytozqt [Mass/Vol]7.6 g/dLNormal6.3-8.0[facility] on above:Order Comment: Specimen Type: BLOOD SPECIMENOrdering Facility: [facility] Address:[address] [place], [place] [address]Performed By: #### 74598- 8 ####[facility] LABCLIA [id number] [place], [place] [address]Mylmnd [Moles/Vol]138 mmol/ZJhadfw291-451YrjddhakmJoint Township District Memorial Hospital on above:Order Comment: Specimen Type: BLOOD SPECIMENOrdering Facility: [facility] Address:[address] [place], [place] [address]Performed By: #### 53730-1 ####[facility] LABCLIA [id number] [place], [place] [address]Eesy nitrogen [Mass/Vol]16 mg/dLNormal7-21[facility] on above:Order Comment: Specimen Type: BLOOD SPECIMENOrdering Facility: [facility] Address:[address] [place], [place] [address]Performed By: #### 23137-3 ####[facility] LABCLIA [id number] [place], [place] [address]Thfxzppc SerPl-mCncon 81-27-1916Jiwxidrb [Mass/Vol]83.6 ng/uHMkewkn31.7-205.1CPremier Health [facility] on above:Order Comment: Specimen Type: BLOOD SPECIMENOrdering Facility: [facility] Address:[address] [place], [place] [address]Performed By: #### 2132-9, 2284-8, 2276-4, 19308-1 ####[facility] LABCLIA [id number] [place] [address] [place] AMERICAFolate SerPl-mCncon 95-22-7273Kffrqs [Mass/Vol]ng/mLNormal>4.7CPremier Health Upper [facility] on above:Order Comment: Specimen Type: BLOOD SPECIMENOrdering Facility: [facility] Address:[address] [place], [place] [address]Result Comment: A result of > 20 ng/mL is not necessarily indicative of a pathologic or treatable condition: it reflects a limitation of the test methodology.Assay reference range: 4.8 to 24.2 ng/mL. Suitable for detection of folate deficiency.Reference:Folate III (Folate III) [package insert V 1.0 Macedonian]. [employer], [place], [place]: March 2015.Performed By: #### 2132-9, 2284-8, 2276-4, 89094-6 ####[facility] LABCLIA [id number] [place] [address] [place] IMMUNOGLOBULINS,IGG,IGA,IGMon 78-60-2421FbL [Mass/Vol]184 mg/dRUpuuhk73-162 [facility] on above:Order Comment: Specimen Type: BLOOD SPECIMENOrdering Facility: [facility] Address:[address] [place], [place] [address]Performed By: #### SERIMM ####[facility] LABCLIA [id number] [place] [address] [place] AMERICAIgG [Mass/Vol]610 mg/oGLuz763-1982VhhxgajfxJoint [facility] on above:Order Comment: Specimen Type: BLOOD SPECIMENOrdering Facility: [facility] Address:[address] [place], [place] [address]Performed By: #### SERIMM ####[facility] LABCLIA [id number] [place] [address] [place] AMERICAIgM [Mass/Vol]454 mg/dL Svjp92-026RdhqmkkfwJoint Township District Memorial Hospital on above:Order Comment: Specimen Type: BLOOD SPECIMENOrdering Facility: [facility] Address:[address] [place], [place] [address]Performed By: #### SERIMM ####[facility] LABIA [id number] [place] [id number] [place] AMERICAIron and Iron binding capacity panelon 98-40-1229Gtvk [Mass/Vol]156 ug/aCGupksj33-320RzkaaexguJoint [facility] on above:Order Comment: Specimen Type: BLOOD SPECIMENOrdering Facility: [facility] Address:[address] [place], [place] [address]Performed By: #### 2132- 9, 2284-8, 2276-4, 74312-3 ####[facility] LABIA [id number] [place] [address] [place] AMERICAIron binding capacity [Mass/Vol]443 ug/iTWhuh576-466TzhevloeoJoint [facility] District [facility] on above:Order Comment: Specimen Type: BLOOD SPECIMENOrdering Facility: [facility] Address:[address] [place] [address] Performed By: #### 2132-9, 2284-8, 2276-4, 11896-3 ####[facility] LABIA [id number] [place] [address] [place] AMERICAIron/TIBC [Molar ratio]35.2 %Jpjphs53.0-57.0[facility] on above:Order Comment: Specimen Type: BLOOD SPECIMENOrdering Facility: [facility] Address:[address] [place], [place] [address]Performed By: #### 2132-9, 2284-8, 2276-4, 78216-9 ####[facility] LABIA [id number] [place] [address] [place] AMERICAVit B12 SerPl-[facility] Center-Philadelphiaon 33-09-5432Xogdwowxi (Vitamin B12) [Mass/Vol]694 pg/mOMdomce330-9855NynrqlbbmPremier Health [facility] on above: Order Comment: Specimen Type: BLOOD SPECIMENOrdering Facility: [facility] Address:[address] [place], [place] [address]Kgfnzpzcx By: #### 2132- 9, 2284-8, 2276-4, 63906-8 ####[facility] LABCLIA [id number] REDWO[address] LLCNichole [address] [address] [place] AMERICACNPNon 82-73-7653BRUMTalzlsUuanomfai Clinic ClevelandHCG ( test) IA.rapid Ql (U)Ordered By: Adolfo Kang on 79-88-6640TAO ( test) Ql (U)Negative [facility] Medical CenterHCG,Urineon 22-13-0204Vnca HCG ( test) Ql (U)NegativeNoBlue Ridge Regional Hospital Physician GroupComment on above:Result Comment: PERFORMED BY: [facility] [address]. [place] [id number] PATHOLOGIST NET COORDINATOR TIM FOOTE M.D.Performed By: #### UHCG #### [facility] [address] [place] [address] USABI US BREAST LIMITED LEFTon 38-26-1675TV US BREAST LIMITED LEFTThis is a summary [...] SIGNED BY: Yassine Owens M.D.NormalNot AvailableCNPNon 01-18-2025 CNPNNormalTrihealth Mccullough-[facility] Hospital25([place])D3 SerPl-mCncon 93-14-567862- hydroxyvitamin D3 [Mass/Vol]32.2 ng/kNGjwfks18.0-80.0[facility] Comment on above:Order Comment: Specimen Type: BLOOD SPECIMENOrdering Facility: [facility] Address:[address] [place] [address] Performed By: #### 1989-3 ####[facility] LABIA [id number] [place] [address] [place] [facility] BLOOD TB SCREENon 01-11-2025M. tuberculosis tuberculin stim IFN-g Ql (Bld) NegativeNormalCTrinity Health System Twin City Medical CenterComment on above:Order Comment: Specimen Type: BLOOD SPECIMENOrdering Facility: [facility] Address:[address] [place], [place] [address]Performed By: #### INFTBP ####[facility] LABIA [id number] [place] [address] [place] AMERICAMITOGEN MINUS NIL>9.97Normal>=0.50[facility] on above:Order Comment: Specimen Type: BLOOD SPECIMENOrdering Facility: [facility] Address:[address] [place], [place] [address]Performed By: #### INFTBP ####[facility] LABIA [id number] [place] [address] [place] TB GAMMA INTERPRETATIONNormalCPremier Health [facility] on above:Order Comment: Specimen Type: BLOOD SPECIMENOrdering Facility: [facility] Address:[address] [place], [place] [address]Performed By: #### INFTBP ####[facility] LABIA [id number] [address]ETTB NIL0.03 IU/mLNormal<=8.00 [facility] on above:Order Comment: Specimen Type: BLOOD SPECIMENOrdering Facility: [facility] Address:[address] [place], [place] [address]Performed By: #### INFTBP ####[facility] LABIA [id number] [address]TB1 AG MINUS NIL0.01 IU/mLNormal<0.35[facility] on above:Order Comment: Specimen Type: BLOOD SPECIMENOrdering Facility: [facility] Address:[address] [place], [place] [address]Performed By: #### INFTBP ####[facility] LABIA [id number] [address]TB2 AG MINUS NIL0.01 IU/mLNormal<0.35[facility] on above:Order Comment: Specimen Type: BLOOD SPECIMENOrdering Facility: [facility] Address:[address] [place], [place] [address]Performed By: #### INFTBP ####[facility]ITALIA [id number] [address] panel Auto (Bld)on 01-11-2025 Erythrocyte distribution width (RBC) [Ratio]14.5 %11.5 - 15.0 %[facility] Hematocrit (Bld) [Volume fraction]41.5 %36.0 - 46.0 %[facility] CompanyHemoglobin (Bld) [Mass/Vol]13.8 g/dL11.5 - 15.5 g/dLRegency Hospital CompanyInterpretation and review of laboratory resultsAbnormalCChildren's Hospital for Rehabilitation (RBC) [Entitic mass]32.2 pg26.0 - 34.0 pgCNorwalk Memorial HospitalHC (RBC) [Mass/Vol]33.3 g/dL30.5 - 36.0 g/dL [facility] ([facility]) [Entitic vol]96.7 fL80.0 - 100.0 [facility] Nucleated RBC (Bld) [#/Vol]NINFCWayne HealthCare Main CampusPlatelet mean volume (Bld) [Entitic vol]10.6 fL9.0 - 12.7 fLCWayne HealthCare Main CampusPlatelets (Bld) [#/Vol]265 10*3/[facility] CenterRBC (Bld) [#/Vol]4.29 10*6/uL3.90 - 5.20 m/[facility] [facility] CenterWBC (Bld) [#/Vol]12.61 10*3/uLSalem Regional Medical Center Erythrocyte distribution width (RBC) [Ratio]14.5 %Yjyyvz69.5-15.0[facility] on above:Order Comment: Specimen Type: BLOOD SPECIMENOrdering Facility: [facility] Address:[address] [place], [place] [address]Performed By: #### 93511-3 ####[facility] LABIA [id number] [place], [place] [address]Akebwhwqoz (Bld) [Volume fraction]41.5 %Tiwtzc21.0-46.0[facility] on above:Order Comment: Specimen Type: BLOOD SPECIMENOrdering Facility: [facility] Address:[address] [place], [place] [address]Performed By: #### 03949-3 ####[facility] LABCLIA [id number] [place], [place] [address]Dekazrlhwk (Bld) [Mass/Vol]13.8 g/tALvagqt63.5-15.5 [facility] on above:Order Comment: Specimen Type: BLOOD SPECIMENOrdering Facility: [facility] Address:[address] [place], [place] [address]Performed By: #### 98514-2 ####[facility] LABCLIA [id number] [place], [place] [address]NVL (RBC) [Entitic mass]32.2 pdEtoquv94.0-34.0[facility] on above: Order Comment: Specimen Type: BLOOD SPECIMENOrdering Facility: [facility] Address:[address] [place], [place] [address]Performed By: #### 88374- 2 ####[facility] LABIA [id number] [place], [place] [address]ADFZ (RBC) [Mass/Vol]33.3 g/oOSfgnos07.5-36.0[facility] on above:Order Comment: Specimen Type: BLOOD SPECIMENOrdering Facility: [facility] Address:[address] [place], [place] [address]Performed By: #### 68086-5 ####[facility] LABM[facility] [id number] [place], [place] [address]ATK (RBC) [Entitic vol]96.7 hVJbzhcc66.0-100.0[facility] on above: Order Comment: Specimen Type: BLOOD SPECIMENOrdering Facility: [facility] Address:[address] [place], [place] [address]Performed By: #### 61916- 2 ####[facility] LABIA [id number] [place], [place] [address]Qgbdumllt RBC (Bld) [#/Vol]10*3/uLNormal<0.01[facility] on above:Order Comment: Specimen Type: BLOOD SPECIMENOrdering Facility: [facility] Address:[address] [place], [place] [address]Performed By: #### 95146-1 ####[facility] LABIA [id number] [place], [place] [address]Yhnlgpee mean volume (Bld) [Entitic vol]10.6 fLNormal9.0-12.7CPremier Health [facility] on above:Order Comment: Specimen Type: BLOOD SPECIMENOrdering Facility: [facility] Address:[address] [place] [address] Performed By: #### 87673-7 ####[facility] LABCLIA [id number] [place], [place] [address]Fbjnpfxuf (Bld) [#/Vol]265 10*3/qUNlugwb934-845NrerfwuqqJoint [facility] on above:Order Comment: Specimen Type: BLOOD SPECIMENOrdering Facility: [facility] Address:[address] [place], [place] [address]Performed By: #### 21463-7 ####[facility] LABCLIA [id number] [place], [place] [address]TPZ (Bld) [#/Vol]4.29 10*6/uLNormal3.90-5.20[facility] on above:Order Comment: Specimen Type: BLOOD SPECIMENOrdering Facility: [facility] Address:[address] [place], [place] [address]Performed By: #### 73409-6 ####[facility] LABIA [id number] [place], [place] [address]IZK (Bld) [#/Vol]12.61 10*3/uLHigh3.70-11.00[facility] on above: Order Comment: Specimen Type: BLOOD SPECIMENOrdering Facility: [facility] Address:[address] [place], [place] [address]Performed By: #### 13313- 2 ####[facility] LABIA [id number] [place], [place] [address]ZTV SerPl-mCncon 64-80-2179NIA [Mass/Vol]mg/LNormal<0.9 [facility] on above:Order Comment: Specimen Type: BLOOD SPECIMENOrdering Facility: [facility] Address:[address] [place], [place] [address]Performed By: #### 1987-5, 2131-9 ####[facility] LABCLIA [id number] JERAD BERRIOS [place] [id number] [place] OF AMERICAComprehensive metabolic 2000 panelOrdered By: Jossejarocho Merlos on 16-16-9187Ypyznss [Mass/Vol]3.9 g/dL3.9 - 4.9 g/dLAline ClinicALP [Catalytic activity/Vol]83 U/L34 - 123 U/LCleveland ClinicALT [Catalytic activity/Vol]42 U/LHigh7 - 38 U/LCleveland ClinicAnion gap [Moles/Vol]10 mmol/L8 - 15 mmol/L Aline ClinicAST [Catalytic activity/Vol]22 U/L13 - 35 U/LCleveland Clinic Bilirubin [Mass/Vol]0.2 mg/dL0.2 - 1.3 mg/dLAline ClinicCalcium [Mass/Vol] 9.7 mg/dL8.5 - 10.2 mg/dLAline ClinicChloride [Moles/Vol]103 mmol/L98 - 107 mmol/LCleveland ClinicCO2 [Moles/Vol]23 mmol/L22 - 30 mmol/LCleveland Clinic Creatinine [Mass/Vol]0.50 mg/dLLow0.58 - 0.96 mg/dLRegency Hospital CompanyGFR/1.73 sq M.predicted among non-blacks MDRD (S/P/Bld) [Vol rate/Area]119 mL/min/{1.73_m2}- PINFCleveland ClinicComment on above:Estimated Glomerular Filtration Rate (eGFR) is calculated using the 2020 CKD-EPI creatinine equation. This equation utilizes serum creatinine, sex, and age as parameters. The creatinine assay has traceable calibration to isotope dilution-mass spectrometry. Refer to KDIGO guidelines for clinical interpretation. In patients with unstable renal function, e.g. those with acute kidney injury, the eGFRmay not accurately reflect actual GFR.Glucose [Mass/Vol]221 mg/nOZofv77 - 99 mg/dLRegency Hospital CompanyComment on above:The [place] Diabetes Association (ADA) provides guidance for cutoff [...] Standards of Medical Care in Diabetes 2016, [place] [employer] Association. Diabetes Care. 2016.39(Suppl 1). Interpretation and review of laboratory resultsAbnormalCleveland ClinicPotassium [Moles/Vol]4.1 mmol/L3.7 - 5.1 mmol/LCashtabula county medical center ClinicProtein [Mass/Vol]6.8 g/dL 6.3 - 8.0 g/dLAline ClinicSodium [Moles/Vol]136 mmol/L136 - 144 mmol/L Regency Hospital CompanyUrea nitrogen [Mass/Vol]15 mg/dL7 - 21 mg/dLFisher-Titus Medical CenterComprehensive metabolic 2000 panelon 21-22-3608Ydpooji [Mass/Vol]3.9 g/dLNormal3.9-4.9CPrem[facility] on above:Order Comment: Specimen Type: BLOOD SPECIMENOrdering Facility: [facility] Address:[address] [place] [address]Agcrzbcmr By: #### 35655- 8 ####[facility] LABCLIA [id number] [place], [place] [address]RYV [Catalytic activity/Vol]83 U/VMzthwv78-311GynleygfqJoint [facility] District [facility] on above:Order Comment: Specimen Type: BLOOD SPECIMENOrdering Facility: [facility] Address:[address] [place], [place] [address]Mmwngkrbb By: #### 68598-4 ####[facility] LABCLIA [id number] [place], [place] [address]YEV [Catalytic activity/Vol]42 U/LHigh7-38[facility] on above:Order Comment: Specimen Type: BLOOD SPECIMENOrdering Facility: [facility] Address:[address] [place], [place] [address]Performed By: #### 08872- 8 ####[facility] LABCLIA [id number] [facility] JA DRIVEROASIS BEHAVIORAL HEALTH HOSPITALCAYDENRIPON, [place] [address]Pflht gap [Moles/Vol]10 mmol/LNormal8-15[facility] on above:Order Comment: Specimen Type: BLOOD SPECIMENOrdering Facility: [facility] Address:[address] [place], [place] [address]Performed By: #### 04550-6 ####[facility] LABCLIA [id number] [place], [place] [address]OJO [Catalytic activity/Vol]22 U/RRdwktp30-57GaipgaisaJoint Township District Memorial Hospital on above:Order Comment: Specimen Type: BLOOD SPECIMENOrdering Facility: [facility] Address:[address] [place], [place] [address]Performed By: #### 56015-8 ####[facility] LABCLIA [id number] [place] [address] Bilirubin [Mass/Vol]0.2 mg/dLNormal0.2-1.3CPremier Health [facility] on above:Order Comment: Specimen Type: BLOOD SPECIMENOrdering Facility: [facility] Address:[address] [place], [place] [address]Performed By: #### 00902-8 ####[facility] LABCLIA [id number] [facility] HOSPITALMAGGYOASIS BEHAVIORAL HEALTH HOSPITALAMAYAGRANITE [place]ALLS, [place] [address]Gjrbqkc [Mass/Vol]9.7 mg/dLNormal8.5-10.2CPremier Health [facility] on above:Order Comment: Specimen Type: BLOOD SPECIMENOrdering Facility: [facility] Address:[address] [place], [place] [address]Performed By: #### 29180-5 ####[facility] LABCLIA [id number] [place]USAMAYAGR[place], [place] [address]Avxukbdb [Moles/Vol]103 mmol/VFbldou89-848VretygowaJoint [facility] District [facility] Hospital on above: Order Comment: Specimen Type: BLOOD SPECIMENOrdering Facility: [facility] Address:[address] [place], [place] [address]Performed By: #### 81868- 8 ####[facility] LABCLIA [id number] [place], [place] [address]FU4 [Moles/Vol]23 mmol/IVomxqt03-97KfqwauamuJoint Township District [facility] Hospital on above:Order Comment: Specimen Type: BLOOD SPECIMENOrdering Facility: [facility] Address:[address] [place], [place] [address]Performed By: #### 30305-8 ####[facility] LABCLIA [id number] [place], [place] [address]Bqiduexvhq [Mass/Vol]0.50 mg/dL Low0.58-0.96[facility] on above:Order Comment: Specimen Type: BLOOD SPECIMENOrdering Facility: [facility] Address:[address] [place], [place] [address]Performed By: #### 99166-4 ####[facility] LABCLIA [id number] [place] [address] eGFRcr SerPlBld CKD-EPI 4302768 mL/min/1.73m???Normal>=60[facility] on above:Order Comment: Specimen Type: BLOOD SPECIMENOrdering Facility: [facility] Address:[address] [place], [place] [address]Result Comment: Estimated Glomerular Filtration Rate (eGFR) is [...] accurately reflect actual GFR. Performed By: #### 21729-8 ####[facility] LABCLIA [id number] [place], [place] [address]Gvkqope [Mass/Vol]221 mg/dLHigh 74-99[facility] on above:Order Comment: Specimen Type: BLOOD SPECIMENOrdering Facility: [facility] Address:[address] [place], [place] [address]Result Comment: The [place] Diabetes Association (ADA) provides guidance for cutoff [...] Standards of Medical Care in Diabetes 2016, [place] [employer] Association. Diabetes Care. 2016.39(Suppl 1).Performed By: #### 98158-5 ####[facility] LABCLIA [id number] [place], [place] [address]Cghpgfdbl [Moles/Vol]4.1 mmol/LNormal3.7-5.1CPremier Health [facility] on above:Order Comment: Specimen Type: BLOOD SPECIMENOrdering Facility: [facility] Address:[address] [place], [place] [address]Performed By: #### 36092-3 ####[facility] LABCLIA [id number] [place], [place] [address]Acrnawe [Mass/Vol]6.8 g/dLNormal6.3-8.0[facility] on above:Order Comment: Specimen Type: BLOOD SPECIMENOrdering Facility: [facility] Address:[address] [place], [place] [address]Performed By: #### 86597- 8 ####[facility] LABCLIA [id number] [place], [place] [address]Adwowl [Moles/Vol]136 mmol/NUjffpp888-915XzkokiovzJoint [facility] District [facility] on above:Order Comment: Specimen Type: BLOOD SPECIMENOrdering Facility: [facility] Address:[address] [place], [place] [address]Performed By: #### 64370-1 ####[facility] LABCLIA [id number] [place], [place] [address]Nhzg nitrogen [Mass/Vol]15 mg/dLNormal7-[facility] on above:Order Comment: Specimen Type: BLOOD SPECIMENOrdering Facility: [facility] Address:[address] [place], [place] [address]Performed By: #### 41250-8 ####[facility] LABIA [id number] [place], [place] [address]ETL Westergren method (Bld) [Velocity]on 77-07-2666TKE (Bld) [Velocity]34 mm/hHigh0-20[facility] on above:Order Comment: Specimen Type: BLOOD SPECIMENOrdering Facility: [facility] Address:[address] [place], [place] [address]Performed By: #### 4537-7 ####[facility] [id number] [place] [address] [place] AMERICAHBV core Ab Ser Qlon 01-11-2025 HBV core Ab Ql (S)NegativeNormalNegativeJoint [facility] on above:Order Comment: Specimen Type: BLOOD SPECIMENOrdering Facility: [facility] Address:[address] [place], [place] [address]Result Comment: No evidence of current or past infection with Hepatitis B virus. Should recent infection be suspected, repeat testing may be considered 3-4 weeks after this draw.Performed By: #### 5195-3, 07732-0, 93162-9 ####[facility] LABIA [id number] [address] [place] AMERICAHBV surface Ab Ql (S)on 93-93-7479FYU surface Ab Qn (S)177.77 mIU/mLNormalJoint Township District [facility] Hospital on above:Order Comment: Specimen Type: BLOOD SPECIMENOrdering Facility: [facility] Address:[address] [place], [place] [address]Result Comment: <8 mIU/mL: No serological evidence of immunity to Hepatitis B Virus.>/= 8 to <12 mIU/mL: No serological evidence of immunity to Hepatitis B Virus.>/= 12 mIU/mL: Consistentwith serological evidence of immunity to Hepatitis B Virus.Performed By: #### 5195-3, 72261-1, 26253-2 ####[facility] LABIA [id number] VIL[place] [address] [place] AMERICAHBV surface Ab Ser Ql on 31-65-2696KJR surface Ab Ql (S)PositiveNormalCTrinity Health System [facility] Comment on above:Order Comment: Specimen Type: BLOOD SPECIMENOrdering Facility: [facility] Address:[address] [place], [place] [address]Result Comment: Consistent with serological evidence of immunity to Hepatitis B Virus. Performed By: #### 5195-3, 87941-1, 21121-5 ####[facility] LABIA [id number] VIL[place] [address] [place] AMERICAHBV surface Ag Ser Qlon 63-43-4423DGS surface Ag Ql (S)NegativeNormal NegativeJoint Township District [facility] on above:Order Comment: Specimen Type: BLOOD SPECIMENOrdering Facility: [facility] Address:[address] [place], [place] [address]Performed By: #### 5195-3, 93265-3, 91232-3 ####[facility] LABMOUNT [facility]UTNEY [facility] [id number] [place]IL[place] [address] [place] AMERICAHCV Ab Ser Qlon 87-63-5939IAM Ab Ql (S)NegativeNormalNegativeJoint [facility] on above:Order Comment: Specimen Type: BLOOD SPECIMENOrdering Facility: [facility] Address:[address] [place], [place] [address]Result Comment: The result suggests no evidence of infection with Hepatitis C virus. Should recent i nfection be suspected, repeat testing may be considered 4-6 weeks after this draw.Performed By: #### 05376-2 ####[facility] LABCLIA [id number] [place] [id number] [place] Vit B12 SerPl-mCncon 01-06-6018Dxqqvmysj (Vitamin B12) [Mass/Vol]710 pg/mLNormal 232-1245CPremier Health [facility] on above:Order Comment: Specimen Type: BLOOD SPECIMENOrdering Facility: [facility] Address:[address] [place], [place] [address]Performed By: #### 1988-5, 2132-9 ####[facility] LABCLIA [id number] [address] OF [facility] MEDICAL CENTERCB W Auto Differential panel (Bld)on 11-29-2024 Basophils (Bld) [#/Vol]0.09 10*3/uLNormal<0.11CPremier Health [facility] on above:Order Comment: Specimen Type: BLOOD SPECIMENOrdering Facility: [facility] Address:[address] [place] [address] Performed By: #### 30348-0 ####[facility] LABCLIA [id number] [place], [place] [address]Lsynqfqzt/100 WBC (Bld)0.7 % NormalJoint Township District Memorial Hospital on above:Order Comment: Specimen Type: BLOOD SPECIMENOrdering Facility: [facility] Address:[address] [place], [place] [address]Performed By: #### 12652-5 ####[facility] LABCLIA [id number] [place] [address] Differential cell count method Nom (Bld)AutoNormalCTrinity Health System [facility] Comment on above:Order Comment: Specimen Type: BLOOD SPECIMENOrdering Facility: [facility] Address:[address] [place] [address] Performed By: #### 87646-2 ####[facility] LABCLIA [id number] [place], [place] [address]Gccvpzpjcbu (Bld) [#/Vol]0.09 10*3/uLNormal<0.46[facility] on above:Order Comment: Specimen Type: BLOOD SPECIMENOrdering Facility: [facility] Address:[address] [place], [place] [address]Performed By: #### 66639-5 ####[facility] LABCLIA [id number] [place], [place] [address]Nrydnodieiv/100 WBC (Bld)0.7 %NormalJoint Township District Memorial Hospital on above:Order Comment: Specimen Type: BLOOD SPECIMENOrdering Facility: [facility] Address:[address] [place], [place] [address]Performed By: #### 17019-0 ####[facility] LABIA [id number] [place], [place] [address]Mymfqirbcun distribution width (RBC) [Ratio]14.8 %Mhwzrj02.5-15.0[facility] on above: Order Comment: Specimen Type: BLOOD SPECIMENOrdering Facility: [facility] Address:[address] [place], [place] [address]Performed By: #### 16736- 8 ####[facility] LABCLIA [id number] [place], [place] [address]Bblpoxbfmd (Bld) [Volume fraction]42.9 %Jwmuzz09.0-46.0 [facility] on above:Order Comment: Specimen Type: BLOOD SPECIMENOrdering Facility: [facility] Address:[address] [place], [place] [address]Performed By: #### 47801-7 ####[facility] LABIA [id number] [place], [place] [address]Kfpicdffba (Bld) [Mass/Vol]14.0 g/oXWsfckn86.5-15.5CPremier Health [facility] on above: Order Comment: Specimen Type: BLOOD SPECIMENOrdering Facility: [facility] Address:[address] [place], [place] [address]Performed By: #### 50887- 8 ####[facility] LABCLIA [id number] [place], [place] [address]Vzuduuqo granulocytes (Bld) [#/Vol]0.18 10*3/uLHigh<0.10 [facility] on above:Order Comment: Specimen Type: BLOOD SPECIMENOrdering Facility: [facility] Address:[address] [place], [place] [address]Performed By: #### 14666-5 ####[facility] LABIA [id number] [place], [place] [address]Oxeumxpp granulocytes/100 WBC (Bld)1.5 %[facility] on above: Order Comment: Specimen Type: BLOOD SPECIMENOrdering Facility: [facility] Address:[address] [place], [place] [address]Performed By: #### 62974- 8 ####[facility] LABCLIA [id number] [place], [place] [address]Fhnlwqxhiap (Bld) [#/Vol]1.99 10*3/uLNormal1.00-4.00 [facility] on above:Order Comment: Specimen Type: BLOOD SPECIMENOrdering Facility: [facility] Address:[address] [place], [place] [address]Performed By: #### 63513-0 ####[facility] LABIA [id number] [place], [place] [address]Cddrnfmkwzy/100 WBC (Bld)16.4 %NormalJoint Township District Memorial Hospital on above:Order Comment: Specimen Type: BLOOD SPECIMENOrdering Facility: [facility] Address:[address] [place], [place] [address]Performed By: #### 78659-4 ####[facility] LABCLIA [id number] [place], [place] [address]DJC (RBC) [Entitic mass]31.7 xsVugtbp50.0-34.0[facility] on above:Order Comment: Specimen Type: BLOOD SPECIMENOrdering Facility: [facility] Address:[address] [place], [place] [address]Performed By: #### 67700-0 ####[facility] LABCLIA [id number] [place], [place] [address]FQEH (RBC) [Mass/Vol]32.6 g/gLXnmufv97.5-36.0[facility] on above: Order Comment: Specimen Type: BLOOD SPECIMENOrdering Facility: [facility] Address:[address] [place], [place] [address]Performed By: #### 42685- 8 ####[facility] LABCLIA [id number] [place], [place] [address]VIT (RBC) [Entitic vol]97.1 hXNffjhr61.0-100.0[facility] on above:Order Comment: Specimen Type: BLOOD SPECIMENOrdering Facility: [facility] Address:[address] [place], [place] [address]Performed By: #### 96651-5 ####[facility] LABCLIA [id number] [place], [place] [address]Fbftcxqwo (Bld) [#/Vol]0.67 10*3/uLNormal<0.87[facility] on above:Order Comment: Specimen Type: BLOOD SPECIMENOrdering Facility: [facility] Address:[address] [place], [place] [address]Performed By: #### 90435- 8 ####[facility] LABIA [id number] [place], [place] [address]Bgkzlkbyt/100 WBC (Bld)5.5 %NormalCleveland Clinic ClevelandComment on above:Order Comment: Specimen Type: BLOOD SPECIMENOrdering Facility: [facility] Address:[address] [place], [place] [address]Performed By: #### 44887-4 ####[facility] LABCLIA [id number] [place], [place] [address]Jxyuatajcnj (Bld) [#/Vol]9.15 10*3/uLHigh1.45-7.50[facility] on above:Order Comment: Specimen Type: BLOOD SPECIMENOrdering Facility: [facility] Address:[address] [place], [place] [address]Performed By: #### 60331-8 ####[facility] LABCLIA [id number] [place], [place] [address]Sfbcriodhcm/100 WBC (Bld)75.2 %NormalJoint Township District Memorial Hospital on above:Order Comment: Specimen Type: BLOOD SPECIMENOrdering Facility: [facility] Address:[address] [place], [place] [address]Performed By: #### 42714-2 ####[facility] LABCLIA [id number] [place], [place] [address]Ztnupppra RBC (Bld) [#/Vol] 10*3/uLNormal<0.01[facility] on above:Order Comment: Specimen Type: BLOOD SPECIMENOrdering Facility: [facility] Address:[address] [place], [place] [address]Performed By: #### 23775-4 ####[facility] LABCLIA [id number] [place], [place] [address]Knjpodbkp RBC/100 WBC (Bld) [Ratio]0.0 /100 WBCNormal [facility] on above:Order Comment: Specimen Type: BLOOD SPECIMENOrdering Facility: [facility] Address:[address] [place], [place] [address]Performed By: #### 63273-4 ####[facility] LABCLIA [id number] [place], [place] [address]Bukxkhoh mean volume (Bld) [Entitic vol]9.7 fLNormal9.0-12.7CPremier Health [facility] on above:Order Comment: Specimen Type: BLOOD SPECIMENOrdering Facility: [facility] Address:[address] [place] [address] Performed By: #### [id number] ####[facility] LABCLIA [id number] [place], [place] [address]Tsyuusxgu (Bld) [#/Vol]281 10*3/[id number] [facility] District [facility] on above:Order Comment: Specimen Type: BLOOD SPECIMENOrdering Facility: [facility] Address:[address] [place], [place] [address]Performed By: #### [id number] ####[facility] LABCLIA [id number] [place], [place] [address]DRX (Bld) [#/Vol]4.42 10*6/uLNormal3.90-5.20[facility] on above:Order Comment: Specimen Type: BLOOD SPECIMENOrdering Facility: [facility] Address:[address] [place], [place] [address]Performed By: #### 92985-3 ####[facility] LABCLIA [id number] [place], [place] [address]LWB (Bld) [#/Vol]12.17 10*3/uLHigh3.70-11.00[facility] on above: Order Comment: Specimen Type: BLOOD SPECIMENOrdering Facility: [facility] Address:[address] [place], [place] [address]Performed By: #### 93006- 8 ####[facility] LABCLIA [id number] [place], [place] [address]EJDBXOnc 68-02-4480TMLDYHDijgjzMxajuogdrOhioHealth Grant Medical Center metabolic 2000 panelon 28-16-3150Disqkup [Mass/Vol]4.1 g/dLNormal 3.9-4.9CPremier Health [facility] on above:Order Comment: Specimen Type: BLOOD SPECIMENOrdering Facility: [facility] Address:[address] [place], [place] [address]Performed By: #### 57686-2 ####[facility] LABCLIA [id number] [place], [place] [address]OLM [Catalytic activity/Vol]61 U/CKqmzcy52-101DrxeicflrJoint [facility] on above:Order Comment: Specimen Type: BLOOD SPECIMENOrdering Facility: [facility] Address:[address] [place], [place] [address]Performed By: #### 16371-7 ####[facility] LABCLIA [id number] [place], [place] [address]XKY [Catalytic activity/Vol]39 U/LHigh7-38[facility] on above:Order Comment: Specimen Type: BLOOD SPECIMENOrdering Facility: [facility] Address:[address] [place], [place] [address]Performed By: #### 01502-9 ####[facility] LABCLIA [id number] [place], [place] [address]Ukity gap [Moles/Vol]13 mmol/LNormal8-15[facility] on above:Order Comment: Specimen Type: BLOOD SPECIMENOrdering Facility: [facility] Address:[address] [place], [place] [address]Performed By: #### 74521- 8 ####[facility] LABCLIA [id number] [facility] [place], [place] [address]VMM [Catalytic activity/Vol]16 U/RJxbkyg28-51PirqhfagdJoint [facility] on above:Order Comment: Specimen Type: BLOOD SPECIMENOrdering Facility: [facility] Address:[address] [place], [place] [address]Performed By: #### 31851-4 ####[facility] LABCLIA [id number] [place], [place] [address]Hglolxcul [Mass/Vol]0.2 mg/dLNormal0.2-1.3CPremier Health [facility] on above:Order Comment: Specimen Type: BLOOD SPECIMENOrdering Facility: [facility] Address:[address] [place], [place] [address]Performed By: #### 02172- 8 ####[facility] LABCLIA [id number] [place], [place] [address]Uyhakfq [Mass/Vol]9.7 mg/dLNormal8.5-10.2CPremier Health [facility] on above:Order Comment: Specimen Type: BLOOD SPECIMENOrdering Facility: [facility] Address:[address] [place], [place] [address]Performed By: #### 33373-8 ####[facility] LABCLIA [id number] [place], [place] [address]Eftyhrpu [Moles/Vol]102 mmol/L Egnnxm40-718KhmocvzdcJoint [facility] on above:Order Comment: Specimen Type: BLOOD SPECIMENOrdering Facility: [facility] Address:[address] [place], [place] [address]Performed By: #### 74700-8 ####[facility] LABCLIA [id number] [place] [address] CO2 [Moles/Vol]23 mmol/MNokwya92-00AvcpdzrqwJoint [facility] on above: Order Comment: Specimen Type: BLOOD SPECIMENOrdering Facility: [facility] Address:[address] [place], [place] [address]Performed By: #### 90028- 8 ####[facility] LABCLIA [id number] [place], [place] [address]Ukcgvhmahz [Mass/Vol]0.58 mg/dLNormal0.58-0.96[facility] on above:Order Comment: Specimen Type: BLOOD SPECIMENOrdering Facility: [facility] Address:[address] [place] [address]Vmzcynmyl By: #### 48687-4 ####[facility] LABCLIA [id number] [place], [place] [address]Cpfwrarvbg and Glomerular filtration rate.predicted panel (S/P/Bld)115 mL/min/1.73m???Normal >=60[facility] on above:Order Comment: Specimen Type: BLOOD SPECIMENOrdering Facility: [facility] Address:[address] [place] [address]Caxcsd Comment: Estimated Glomerular Filtration Rate (eGFR) is calculated using the 2020 CKD-EPI creatinine equation. This equation utilizes serum creatinine, sex, and age as parameters. The creatinine assay has traceable calibration to isotope dilution-mass spectrometry. Refer to KDIGO guidelines for clinical interpretation. In patients with unstable renal function, e.g. those with acute kidney injury, the eGFR may not accurately reflect actual GFR.Performed By: #### 77132-3 ####[facility] LABCLIA [id number] [place], [place] [address]Ygynxmx [Mass/Vol]233 mg/vISbkk54-47FgveehyltJoint [facility] on above:Order Comment: Specimen Type: BLOOD SPECIMENOrdering Facility: [facility] Address:[address] [place] [address]Orhewv Comment: The [place] Diabetes Association (ADA) provides guidance for cutoff [...] Standards of Medical Care in Diabetes 2016, [place] [employer] Association. Diabetes Care. 2016.39(Suppl 1).Performed By: #### 80657-0 ####[facility] LABCLIA [id number] [place], [place] [address]Azoslpwir [Moles/Vol]4.0 mmol/LNormal3.7-5.1CPremier [facility] on above: Order Comment: Specimen Type: BLOOD SPECIMENOrdering Facility: [facility] Address:[address] [place], [place] [address]Performed By: #### 62376- 8 ####[facility] LABCLIA [id number] [place], [place] [address]Zdulecz [Mass/Vol]7.0 g/dLNormal6.3-8.0[facility] on above:Order Comment: Specimen Type: BLOOD SPECIMENOrdering Facility: [facility] Address:[address] [place], [place] [address]Performed By: #### 06362-6 ####[facility] LABCLIA [id number] [place], [place] [address]Vgbwiu [Moles/Vol]138 mmol/L Oiwqxd143-783SisyifclpJoint [facility] on above:Order Comment: Specimen Type: BLOOD SPECIMENOrdering Facility: [facility] Address:[address] [place], [place] [address]Performed By: #### 13780-2 ####[facility] LABIA [id number] [place] [address] Urea nitrogen [Mass/Vol]16 mg/dLNormal7-21[facility] on above:Order Comment: Specimen Type: BLOOD SPECIMENOrdering Facility: [facility] Address:[address] [place], [place] [address]Performed By: #### 31026-4 ####[facility] LABIA [id number] [place], [place] [address]Njvpyimw HonorHealth Rehabilitation Hospitalpatt 71-35-6405Ehxceita [Mass/Vol] 63.6 ng/cKVfzgab52.7-205.1CPremier [facility] on above:Order Comment: Specimen Type: BLOOD SPECIMENOrdering Facility: [facility] Address:[address] [place], [place] [address]Performed By: #### 2284- 8, 94766-2, 6-4, 9 ####[facility] LABCLIA [id number] [place] [address] [place] AMERICAFolate SerPl-mCncon 09-83-4306Fyaisr [Mass/Vol]ng/mLNormal>4.7CPremier Health [facility] on above:Order Comment: Specimen Type: BLOOD SPECIMENOrdering Facility: [facility] Address:[address] [place], [place] [address]Result Comment: A result of > 20 ng/mL is not necessarily indicative of a pathologic or treatable condition: it reflects a limitation of the test methodology.Assay reference range: 4.8 to 24.2 ng/mL. Suitable for detection of folate deficiency.Reference:Folate III (Folate III) [package insert V 1.0 Macedonian]. [facility], [place], [place]: March 2015.Performed By: #### 2284-8, 09775-4, 2275-4, 2132-01 ####[facility] LABCLIA [id number] [place] [address] [place] IMMUNOGLOBULINS,IGG,IGA,IGMon 86-10-9879TvE [Mass/Vol]169 mg/tLQcpqjz22-688 [facility] on above:Order Comment: Specimen Type: BLOOD SPECIMENOrdering Facility: [facility] Address:[address] [place], [place] [address]Performed By: #### SERIMM ####[facility] LABCLIA [id number] [place] [address] [place] AMERICAIgG [Mass/Vol]596 mg/eNKpp687-5518CvudlaynuJoint [facility] on above:Order Comment: Specimen Type: BLOOD SPECIMENOrdering Facility: [facility] Address:[address] [place], [place] [address]Performed By: #### SERIMM ####[facility] LABCLIA [id number] [address] [address] [place] AMERICAIgM [Mass/Vol]410 mg/dL Nwak68-749UyligbtzgTrihealth Mccullough-Hyde Memorial HospitalComment on above:Order Comment: Specimen Type: BLOOD SPECIMENOrdering Facility: [facility] Address:[address] [place], [place] [address]Performed By: #### SERIMM ####[facility] LABCLIA [id number] [address] [address] [place] OF AMERICAIron and Iron binding capacity panelon 64-35-1516Gdnv [Mass/Vol]154 ug/gIQudgdi66-928NzwkhddlzJoint [facility] on above:Order Comment: Specimen Type: BLOOD SPECIMENOrdering Facility: [facility] Address:[address] [place], [place] [address]Performed By: #### 2284- 8, 93055-3, 6-4, 9 ####[facility] LABCLIA [id number] [address] [place] AMERICAIron binding capacity [Mass/Vol]363 ug/lXFkslck139-048BkzmqjxfpTrihealth Mccullough-Hyde Memorial Hospital Comment on above:Order Comment: Specimen Type: BLOOD SPECIMENOrdering Facility: [facility] Address:[address] [place] [address] Performed By: #### 2284-8, 22307-6, 6-4, 9 ####[facility] LABIA [id number] [place] [address] [place] AMERICAIron/TIBC [Molar ratio]42.4 %Ftdizz44.0-57.0[facility] on above:Order Comment: Specimen Type: BLOOD SPECIMENOrdering Facility: [facility] Address:[address] [place], [place] [address]Performed By: #### 2284-8, 44845-8, 4, 2132-01 ####[facility] LABCLIA [id number] [place] [address] [place] BARNEY CHILDREN'S MEDICAL CENTERVit B12 SerP-ncon 61-00-5829Wthvqemmc (Vitamin B12) [Mass/Vol]775 pg/lOLaswfh229-7358VbfowiufuPremier Health Upper [facility] Center on above: Order Comment: Specimen Type: BLOOD SPECIMENOrdering Facility: [facility] Address:[address] [place], [place] [address]Performed By: #### 2284- 8, 30466-0, 2275-08, 2132-01 ####[facility] LABCLIA [id number] STATES OF BARNEY CHILDREN'S MEDICAL CENTERCNPNon 41-48-6235GAGGRefomwXxxvgrreq Clinic ClevelandCNPNon 67-82-7615ZITONwvjwd [facility] Memorial HospitalCNPNon 12-14-2994DQXKMcgquuRcmvelxqk [facility] [place] 25([place])D3 [facility] Hospitalon 19-66-670602261092-spvwyixzkvzgxr D3 [Mass/Vol]30.9 ng/mLLow 31.0-80.0[facility] on above:Order Comment: Specimen Type: BLOOD SPECIMENOrdering Facility: [facility] Address:[address] [place], [place] [address]Result Comment: Classification of 25 [place] Vitamin D status:Deficiency/Insufficiency: < or = 30 ng/ml.Sufficiency/Optimal Levels: 31-80 ng/mLToxicity: > 100 ng/mL.Test performed by chemiluminescent immunoassay. Performed By: #### 1989-3 ####[facility] LABCLIA [id number] [place] [address] [place] 25-hydroxyvitamin D3 [Mass/Vol]on 42-94-9574Qfrrljkffvsphk and review of laboratory resultsAbnormalCWayne HealthCare Main CampusThe reference range interval was based on an analysis of samples from healthy adults and may not pertain to children from 0-18 years old. [facility] ColumbusC-REACTIVE PROTEINon 18-78-5716YCI [Mass/Vol] mg/dLNINF - 0.9 mg/dLMagruder Memorial HospitalC panel Auto (Bld)on 10-02-2024 Erythrocyte distribution width (RBC) [Ratio]16.2 %High11.5 - 15.0 %[facility]ency Hospital CompanyHematocrit (Bld) [Volume fraction]41.3 %36.0 - 46.0 %[facility] Hemoglobin (Bld) [Mass/Vol]13.7 g/dL11.5 - 15.5 g/dLRegency Hospital Company Interpretation and review of laboratory resultsAbnormalCNorwalk Memorial HospitalH (RBC) [Entitic mass]31.1 pg26.0 - 34.0 pgClevelBemidji Medical CenterHC (RBC) [Mass/Vol]33.2 g/dL30.5 - 36.0 g/dLRegency Hospital CompanyMCV (RBC) [Entitic vol]93.7 fL80.0 - 100.0 fLCleveland ClinicNucleated RBC (Bld) [#/Vol]NINFCleveland ClinicPlatelet mean volume (Bld) [Entitic vol]10.1 fL9.0 - 12.7 fLCleveland ClinicPlatelets (Bld) [#/Vol]265 10*3/uLRegency Hospital CompanyRBC (Bld) [#/Vol]4.41 10*6/uL3.90 - 5.20 m/uL [facility] Hospital CompanyWBC (Bld) [#/Vol]10.07 10*3/uLSelect Medical Specialty Hospital [facility] Erythrocyte distribution width (RBC) [Ratio]16.2 %High11.5-15.0[facility] on above:Order Comment: Specimen Type: BLOOD SPECIMENOrdering Facility: [facility] Address:[address] [place], [place] [address]Ukecomnyk By: #### 71693-4 ####[facility] LABIA [id number] [place], [place] [address]Whcfwbpfvm (Bld) [Volume fraction]41.3 %Jvlvkp20.0-46.0[facility] on above:Order Comment: Specimen Type: BLOOD SPECIMENOrdering Facility: [facility] Address:[address] [place], [place] [address]Performed By: #### 14602- 2 ####[facility] LABCLIA [id number] [place], [place] [address]Dpuaasnlss (Bld) [Mass/Vol]13.7 g/aBIwqvwc33.5-15.5 [facility] on above:Order Comment: Specimen Type: BLOOD SPECIMENOrdering Facility: [facility] Address:[address] [place], [place] [address]Performed By: #### 96131-4 ####[facility] LABCLIA [id number] [place], [place] [address]MPN (RBC) [Entitic mass]31.1 bdIrpoqi80.0-34.0[facility] on above: Order Comment: Specimen Type: BLOOD SPECIMENOrdering Facility: [facility] Address:[address] [place], [place] [address]Performed By: #### 07766- 2 ####[facility] LABCLIA [id number] [place], [place] [address]ASJF (RBC) [Mass/Vol]33.2 g/zTTemhkc31.5-36.0[facility] on above:Order Comment: Specimen Type: BLOOD SPECIMENOrdering Facility: [facility] Address:[address] [place], [place] [address]Performed By: #### 46108-2 ####[facility] LABCLIA [id number] [place], [place] [address]VPF (RBC) [Entitic vol]93.7 uYKshysf95.0-100.0[facility] on above: Order Comment: Specimen Type: BLOOD SPECIMENOrdering Facility: [facility] Address:[address] [place], [place] [address]Performed By: #### 84324- 2 ####[facility] LABCLIA [id number] [place], [place] [address]Qnmxyerms RBC (Bld) [#/Vol]10*3/uLNormal<0.01[facility] on above:Order Comment: Specimen Type: BLOOD SPECIMENOrdering Facility: [facility] Address:[address] [place], [place] [address]Performed By: #### 63992-6 ####[facility] LABCLIA [id number] [place], [place] [address]Tnsvnumj mean volume (Bld) [Entitic vol]10.1 fLNormal9.0-12.7CPremier Health Upper [facility] on above:Order Comment: Specimen Type: BLOOD SPECIMENOrdering Facility: [facility] Address:[address] [place] [address] Performed By: #### 89884-7 ####[facility] LABCLIA [id number] [place], [place] [address]Rqpqfdlaz (Bld) [#/Vol]265 10*3/tSFmenjd646-583PpejusggfJoint [facility] on above:Order Comment: Specimen Type: BLOOD SPECIMENOrdering Facility: [facility] Address:[address] [place], [place] [address]Performed By: #### 44281-3 ####[facility] LABCLIA [id number] [place], [place] [address]IPE (Bld) [#/Vol]4.41 10*6/uLNormal3.90-5.20[facility] on above:Order Comment: Specimen Type: BLOOD SPECIMENOrdering Facility: [facility] Address:[address] [place], [place] [address]Performed By: #### 79076-9 ####[facility] LABCLIA [id number] [place], [place] [address]EYY (Bld) [#/Vol]10.07 10*3/uLNormal3.70-11.00[facility] on above: Order Comment: Specimen Type: BLOOD SPECIMENOrdering Facility: [facility] Address:[address] [place] [address]Ugseglbpp By: #### 04345- 2 ####[facility]OL[facility] LABCLIA [id number] [place], [place] [address]KAH SerPl-mCncon 42-56-9106HUH [Mass/Vol]mg/LNormal<0.9 [facility] on above:Order Comment: Specimen Type: BLOOD SPECIMENOrdering Facility: [facility] Address:[address] [place] [address]Ijicrlnxg By: #### 1988-5 ####[facility] LABCLIA [id number] [address] [address] [place] [facility] CENTERCRP [Mass/Vol]on 44-41-1615Kqwqsppdjyngvc and review of laboratory resultsNormalCleveland ProMedica Flower HospitalComprehensive metabolic 2000 panel Ordered By: Josse Merlos on 97-89-3802Zuizqdf [Mass/Vol]3.9 g/dL3.9 - 4.9 g/dL [facility] ClinicALP [Catalytic activity/Vol]61 U/L34 - 123 U/LCleveland [facility] ALT [Catalytic activity/Vol]41 U/LHigh7 - 38 U/LCleveland ClinicAnion gap [Moles/Vol]14 mmol/L8 - 15 mmol/LCleveland ClinicAST [Catalytic activity/Vol]18 U/L13 - 35 U/LCleveland ClinicBilirubin [Mass/Vol]0.2 mg/dL0.2 - 1.3 mg/dL [facility] CompanyCalcium [Mass/Vol]9.6 mg/dL8.5 - 10.2 mg/dLRegency Hospital Company Chloride [Moles/Vol]107 mmol/L98 - 107 mmol/LCleveland ClinicCO2 [Moles/Vol]20 mmol/LLow22 - 30 mmol/LCleveland ClinicCreatinine [Mass/Vol]0.59 mg/dL0.58 - 0.96 mg/dLRegency Hospital CompanyGFR/1.73 sq M.predicted among non-blacks MDRD (S/P/Bld) [Vol rate/Area]115 mL/min/{1.73_m2}- PINFCACMC Healthcare System Glen[facility]igh on above:Estimated Glomerular Filtration Rate (eGFR) is calculated using the 2020 CKD-EPI creatinine equation. This equation utilizes serum creatinine, sex, and age as parameters. The creatinine assay has traceable calibration to isotope dilution-mass spectrometry. Refer to KDIGO guidelines for clinical inte rpretation. In patients with unstable renal function, e.g. those with acute kidney injury, the eGFRmay not accurately reflect actual GFR.Glucose [Mass/Vol] 216 mg/pXZzzf81 - 99 mg/dLKettering Health Washington Township on above:The [place] Diabetes Association (ADA) provides guidance for cutoff [...] Standards of Medical Care in Diabetes 2016, [place] Diabetes Association. Diabetes Care. 2016.39(Suppl 1). Interpretation and review of laboratory resultsAbnormalCleveland ClinicPotassium [Moles/Vol]4.1 mmol/L3.7 - 5.1 mmol/LCzanesville city hospitaland ClinicProtein [Mass/Vol]6.8 g/dL 6.3 - 8.0 g/dLDayton Osteopathic Hospitalodium [Moles/Vol]141 mmol/L136 - 144 mmol/L [facility] CompanyUrea nitrogen [Mass/Vol]19 mg/dL7 - 21 mg/dLFisher-Titus Medical CenterComprehensive metabolic 2000 panelon 41-70-0777Gswnybc [Mass/Vol]3.9 g/dLNormal3.9-4.9CPremier Health [facility] on above:Order Comment: Specimen Type: BLOOD SPECIMENOrdering Facility: [facility] Address:[address] [place], [place] [address]TASHA [place], [place] [address]Performed By: #### 02910- 8 ####[facility] LABCLIA [id number] [place] [address]TXO [Catalytic activity/Vol]61 U/CBfjxhz65-734TbtipfvfqJoint [facility] on above:Order Comment: Specimen Type: BLOOD SPECIMENOrdering Facility: [facility] Address:[address] [place], [place] [address]Performed By: #### 72784-2 ####[facility] LABCLIA [id number] [place], [place] [address]QRV [Catalytic activity/Vol]41 U/LHigh7-38[facility] on above:Order Comment: Specimen Type: BLOOD SPECIMENOrdering Facility: [facility] Address:[address] [place], [place] [address]Performed By: #### 39757- 8 ####[facility] LABCLIA [id number] KERRI JA DRIVEROASIS BEHAVIORAL HEALTH HOSPITALAMAYAGRANITE FALLS, [place] [address]Bpqqs gap [Moles/Vol]14 mmol/LNormal8-15[facility] on above:Order Comment: Specimen Type: BLOOD SPECIMENOrdering Facility: [facility] Address:[address] [place], [place] [address]Performed By: #### 21048-2 ####[facility] LABCLIA [id number] [place] [address]XUB [Catalytic activity/Vol]18 U/MWqxgmv21-68MogxyoxuzJoint [facility] District [facility] Hospital on above:Order Comment: Specimen Type: BLOOD SPECIMENOrdering Facility: [facility] Address:[address] [place], [place] [address]Performed By: #### 36305-3 ####[facility] LABCLIA [id number] OSORIO PERESMAGGYOASIS BEHAVIORAL HEALTH [place] [address] Bilirubin [Mass/Vol]0.2 mg/dLNormal0.2-1.3CPremier Health Upper [facility] on above:Order Comment: Specimen Type: BLOOD SPECIMENOrdering Facility: [facility] Address:[address] [place], [place] [address]Performed By: #### 46471-3 ####[facility] LABCLIA [id number] OSORIO BARNESOASIS BEHAVIORAL HEALTH HOSPITALAMAYAGRANITE FALLS, [place] [address]Xtyrwbq [Mass/Vol]9.6 mg/dLNormal8.5-10.2CPremier Health Upper [facility] on above:Order Comment: Specimen Type: BLOOD SPECIMENOrdering Facility: [facility] Address:[address] [place], [place] [address]Performed By: #### 77882-9 ####[facility] LABCLIA [id number] [place], [place] [address]Vpdsplxx [Moles/Vol]107 mmol/VFixxqg36-375MdoqpdsypJoint [facility] on above: Order Comment: Specimen Type: BLOOD SPECIMENOrdering Facility: [facility] Address:[address] [place], [place] [address]Performed By: #### 96513- 8 ####[facility] LABCLIA [id number] [place], [place] [address]NW8 [Moles/Vol]20 mmol/XTrw78-47ShsqxhhwuJoint [facility] on above:Order Comment: Specimen Type: BLOOD SPECIMENOrdering Facility: [facility] Address:[address] [place], [place] [address]Performed By: #### 44833-7 ####[facility] LABCLIA [id number] [facility] [place], [place] [address]Pekgsmvuih [Mass/Vol]0.59 mg/dL Normal0.58-0.96[facility] on above:Order Comment: Specimen Type: BLOOD SPECIMENOrdering Facility: [facility] Address:[address] [place], [place] [address]Performed By: #### [id number] ####[facility] LABCLIA [id number] KERRI JA [facility]AS[facility] HOSPITALAMAYAGR[place], [place] [address]Xdvnjymnca and Glomerular filtration rate.predicted panel (S/P/Bld)115 mL/min/1.73m???Normal>=60[facility] on above:Order Comment: Specimen Type: BLOOD SPECIMENOrdering Facility: [facility] Address:[address] [place], [place] [address]Bfuwdh Comment: Estimated Glomerular Filtration Rate (eGFR) is [...] not accurately reflect actual GFR.Performed By: #### 76409-6 ####[facility] LABCLIA [id number] [place], [place] [address]Bjxsvqi [Mass/Vol]216 mg/lBJgya01-60UldemouqwJoint Township District Memorial Hospital on above:Order Comment: Specimen Type: BLOOD SPECIMENOrdering Facility: [facility] Address:[address] [place] [address]Dwlzas Comment: The [place] Diabetes Association (ADA) provides guidance for cutoff [...] Standards of Medical Care in Diabetes 2016, [place] Diabetes Association. Diabetes Care. 2016.39(Suppl 1).Performed By: #### 26967-7 ####[facility] LABCLIA [id number] [place], [place] [address]Xpiihwpav [Moles/Vol]4.1 mmol/LNormal3.7-5.1CPremier Health Upper [facility] on above:Order Comment: Specimen Type: BLOOD SPECIMENOrdering Facility: [facility] Address:[address] [id number] By: #### 99102-5 ####[facility] LABCLIA [id number] [place], [place] [address]Nawvztw [Mass/Vol]6.8 g/dLNormal6.3-8.0[facility] on above:Order Comment: Specimen Type: BLOOD SPECIMENOrdering Facility: [facility] Address:[address] [place], [place] [address]Performed By: #### 18044- 8 ####[facility] LABCLIA [id number] [place], [place] [address]Kinwrk [Moles/Vol]141 mmol/OJdwasi887-239TjfjnkoviJoint Township District Memorial Hospital on above:Order Comment: Specimen Type: BLOOD SPECIMENOrdering Facility: [facility] Address:[address] [place], [place] [address]Performed By: #### 39493-6 ####[facility] LABCLIA [id number] [place], [place] [address]Hpkp nitrogen [Mass/Vol]19 mg/dLNormal7-21[facility] on above:Order Comment: Specimen Type: BLOOD SPECIMENOrdering Facility: [facility] Address:[address] [place], [place] [address]Performed By: #### 68417-9 ####[facility] LABCLIA [id number] [place], [place] [address]DJB Westergren method (Bld) [Velocity]on 77-82-4615WKX (Bld) [Velocity]28 mm/hHighRegency Hospital CompanyInterpretation and review of laboratory resultsAbnormalCleveland University Hospitals Portage Medical CenterR (Bld) [Velocity]28 mm/hHigh0-20[facility] on above:Order Comment: Specimen Type: BLOOD SPECIMENOrdering Facility: [facility] Address:[address] [place], [place] [address]Performed By: #### 4537-7 ####[facility] LABCLIA [id number] [place] [address] [place] OF AMERICAVITAMIN D 25 HYDROXYon 01-33-387239798034-cekvncybtvfewi D3 [Mass/Vol]30.9 ng/mLLow31.0 - 80.0 ng/mLClevelWooster Community HospitalComment on above: Classification of 25 [place] Vitamin D status: Deficiency/Insufficiency: < or = 30 ng/ml. Sufficiency/Optimal Levels: 31-80 ng/mL Toxicity: > 100 ng/mL. Test performed by chemiluminescent immunoassay. DNA EXTRACTION BLOODOrdered By: Dominga Araujo on 26-42-8484WWGTARCEJWAUG (NG/UL)189.3 ng/ulRegency Hospital CompanyTotal Yield94.65 ugRegency Hospital CompanyComment on above:Specimens will be available for 3 years from date of collection. To order testing on this specimen for [facility] patients, please place an BangTango order for DNA and RNA for Clinical Testing (SQNUCADD). To order for patients outside of the [facility] system, please request DNA and RNA for Clinical Testing, order code NUCADD. If additional paperwork is required for testing, please email completed forms to . VOLUME (UL) OF SNN164 [facility] GlenbeighCNOVon 76-76-4555EJHY Salem City HospitalDNA EXTRACTION BLOODon 82-92-8923OCHBKKJIKDMOH (NG/UL)189.3 ng/ulNormalCTrinity Health System Twin City Medical CenterComment on above:Order Comment: Specimen Type: BLOOD SPECIMENOrdering Facility: [facility] Address:[address] [place], [place] [address]Performed By: #### NUCBLD ####[facility] LIMSCLIA [id number] [place] [address] [place] OF AMERICATOTAL YIELD94.65 ugNormalCPremier Health Upper Valley Medical Center on above:Order Comment: Specimen Type: BLOOD SPECIMENOrdering Facility: [facility] Address:[address] [place], [place] [address]Result Comment: Specimens will be available for 3 years from date of collection. To order testing on this specimen for [facility] patients, please place an Epic order for DNA and RNA for Clinical Testing (SQNUCADD). To order for patients outside of the [facility] system, please request DNA and RNA for Clinical Testing, order code NUCADD.If additional paperwork is required for testing,please email completed forms to . Performed By: #### NUCBLD ####[facility] LIMSCLIA [id number] [place] [address] [place] OF AMERICAVOLUME (UL) OF HKO123 uLNormRiverview Health Institute on above:Order Comment: Specimen Type: BLOOD SPECIMENOrdering Facility: [facility] Address:[address] [place], [place] [address]Performed By: #### NUCBLD ####[facility] LIMSCLIA [id number] [address] STATES OF AMERICACNPNon 38-65-8599DWYCQkjvulLeyjooksf Clinic ClevelandCNPNon 09-13-2024 CNPNNormalTrihealth Mccullough-Hyde Memorial HospitalCNOVSPon 46-22-2752TQEIKSEbllefOnodwqfiz Clinic ClevelandCNPNon 34-14-6224UTPCQkreloAzgrcaicgPremier Health [facility] Center IMMUNOGLOBULINS,IGG,IGA,IGMon 85-12-9361CrR [Mass/Vol]163 mg/dWWndnhl72-201 [facility] on above:Order Comment: Specimen Type: BLOOD SPECIMENOrdering Facility: [facility] Address:[address] [place], [place] [address]Performed By: #### SERIMM ####[facility] LABCLIA [id number] [place] [address] [place] AMERICAIgG [Mass/Vol]599 mg/nSAbg267-0183LuohxdfoeJoint Township District Memorial Hospital on above:Order Comment: Specimen Type: BLOOD SPECIMENOrdering Facility: [facility] Address:[address] [place], [place] [address]Performed By: #### SERIMM ####[facility] LABCLIA [id number] [place] [address] [place] AMERICAIgM [Mass/Vol]387 mg/dL Lylq07-337XnfosedrvJoint Township District Memorial Hospital on above:Order Comment: Specimen Type: BLOOD SPECIMENOrdering Facility: [facility] Address:[address] [place], [place] [address]Performed By: #### SERIMM ####[facility] LABCLIA [id number] [place] [address] [place] AMERICALaboratory - Chemistry and Chemistry - challengeon 01-72-0085QmX [Mass/Vol]163 mg/dL70 - 400 mg/dLRegency Hospital CompanyIgG [Mass/Vol]599 mg/dPZkt040 - 1600 mg/dLRegency Hospital CompanyIgM [Mass/Vol]387 mg/sGIpxh86 - 230 mg/dLRegency Hospital CompanyNo Panel Informationon 75-38-6313Dxovyzmrtmgfga and review of laboratory resultsAbnormalCMagruder Hospital W Auto Differential panel (Bld)on 46-48-2064Rjnpmqsbj (Bld) [#/Vol]0.06 10*3/uLNormal <0.11CPremier Health [facility] on above:Order Comment: Specimen Type: BLOOD SPECIMENOrdering Facility: [facility] Address:[address] [place], [place] [address]Performed By: #### 60080-4 ####[facility] LABCLIA [id number] [place] [address] Basophils/100 WBC (Bld)0.5 %NormalJoint Township District Memorial Hospital on above: Order Comment: Specimen Type: BLOOD SPECIMENOrdering Facility: [facility] Address:[address] [place], [place] [address]Performed By: #### 30615- 8 ####[facility] LABCLIA [id number] [place], [place] [address]Futcbcutayjf cell count method Nom (Bld)AutoNormal [facility] on above:Order Comment: Specimen Type: BLOOD SPECIMENOrdering Facility: [facility] Address:[address] [place], [place] [address]Performed By: #### 32347-2 ####[facility] LABCLIA [id number] [place], [place] [address]Nvippuwlyjl (Bld) [#/Vol]0.08 10*3/uLNormal<0.46[facility] on above: Order Comment: Specimen Type: BLOOD SPECIMENOrdering Facility: [facility] Address:[address] [place], [place] [address]Performed By: #### 33564- 8 ####[facility] LABCLIA [id number] [place], [place] [address]Xuzcmnejfkk/100 WBC (Bld)0.6 %NormalJoint Township District Memorial Hospital on above:Order Comment: Specimen Type: BLOOD SPECIMENOrdering Facility: [facility] Address:[address] [place], [place] [address]Performed By: #### 02710-5 ####[facility] LABIA [id number] [place], [place] [address]Njatibkjnlq distribution width (RBC) [Ratio]16.0 %High11.5-15.0[facility] on above:Order Comment: Specimen Type: BLOOD SPECIMENOrdering Facility: [facility] Address:[address] [place], [place] [address]Performed By: #### 40794- 8 ####[facility] LABCLIA [id number] [place], [place] [address]Hlkzaqvred (Bld) [Volume fraction]42.9 %Ovfhoo58.0-46.0 [facility] on above:Order Comment: Specimen Type: BLOOD SPECIMENOrdering Facility: [facility] Address:[address] [place], [place] [address]Performed By: #### 64491-0 ####[facility] LABIA [id number] [place], [place] [address]Ywybnzhkip (Bld) [Mass/Vol]13.8 g/bFBvttdn02.5-15.5CPremier Health Upper [facility] on above: Order Comment: Specimen Type: BLOOD SPECIMENOrdering Facility: [facility] Address:[address] [place], [place] [address]Performed By: #### 62070- 8 ####[facility] LABCLIA [id number] [place], [place] [address]Tcrqsyzt granulocytes (Bld) [#/Vol]0.23 10*3/uLHigh<0.10 [facility] on above:Order Comment: Specimen Type: BLOOD SPECIMENOrdering Facility: [facility] Address:[address] [place], [place] [address]Performed By: #### 19993-8 ####[facility] LABCLIA [id number] [place], [place] [address]Hihtaxjs granulocytes/100 WBC (Bld)1.8 %[facility] on above: Order Comment: Specimen Type: BLOOD SPECIMENOrdering Facility: [facility] Address:[address] [place], [place] [address]Performed By: #### 59630- 8 ####[facility] LABCLIA [id number] [place], [place] [address]Nrnyvxweudv (Bld) [#/Vol]2.07 10*3/uLNormal1.00-4.00 [facility] on above:Order Comment: Specimen Type: BLOOD SPECIMENOrdering Facility: [facility] Address:[address] [place], [place] [address]Performed By: #### 12906-5 ####[facility] LABIA [id number] [place], [place] [address]Ktamvvgoxce/100 WBC (Bld)15.8 %NormalJoint Township District Memorial Hospital on above:Order Comment: Specimen Type: BLOOD SPECIMENOrdering Facility: [facility] Address:[address] [place], [place] [address]Performed By: #### 71671-7 ####[facility] LABCLIA [id number] [place], [place] [address]KKK (RBC) [Entitic mass]30.2 qgFvtmnf19.0-34.0[facility] on above:Order Comment: Specimen Type: BLOOD SPECIMENOrdering Facility: [facility] Address:[address] [place], [place] [address]Performed By: #### 36574-8 ####[facility] LABCLIA [id number] [place], [place] [address]USCH (RBC) [Mass/Vol]32.2 g/cMTruxcj14.5-36.0[facility] on above: Order Comment: Specimen Type: BLOOD SPECIMENOrdering Facility: [facility] Address:[address] [place], [place] [address]Performed By: #### 29746- 8 ####[facility] LABCLIA [id number] [place], [place] [address]ZRI (RBC) [Entitic vol]93.9 cCHiduzb11.0-100.0[facility] on above:Order Comment: Specimen Type: BLOOD SPECIMENOrdering Facility: [facility] Address:[address] [place], [place] [address]Performed By: #### 28195-2 ####[facility] LABCLIA [id number] [place], [place] [address]Teylhmhvr (Bld) [#/Vol]0.86 10*3/uLNormal<0.87[facility] on above:Order Comment: Specimen Type: BLOOD SPECIMENOrdering Facility: [facility] Address:[address] [place], [place] [address]Performed By: #### 69671- 8 ####[facility] LABCLIA [id number] [place], [place] [address]Okyddrvpq/100 WBC (Bld)6.6 %NormalJoint Township District Memorial Hospital on above:Order Comment: Specimen Type: BLOOD SPECIMENOrdering Facility: [facility] Address:[address] [place], [place] [address]Performed By: #### 78576-8 ####[facility] LABCLIA [id number] [place], [place] [address]Dgcroajspfs (Bld) [#/Vol]9.82 10*3/uLHigh1.45-7.50[facility] on above:Order Comment: Specimen Type: BLOOD SPECIMENOrdering Facility: [facility] Address:[address] [place], [place] [address]Performed By: #### 68598-4 ####[facility] LABCLIA [id number] [place], [place] [address]Wucsgrrkysv/100 WBC (Bld)74.7 %NormalJoint Township District Memorial Hospital on above:Order Comment: Specimen Type: BLOOD SPECIMENOrdering Facility: [facility] Address:[address] [place], [place] [address]Performed By: #### 98071-5 ####[facility] LABIA [id number] [place], [place] [address]Opbxohfln RBC (Bld) [#/Vol] 10*3/uLNormal<0.01[facility] on above:Order Comment: Specimen Type: BLOOD SPECIMENOrdering Facility: [facility] Address:[address] [place], [place] [address]Performed By: #### 99645-6 ####[facility] LABIA [id number] [place], [place] [address]Mbfjnzmrh RBC/100 WBC (Bld) [Ratio]0.0 /100 WBCNormal [facility] on above:Order Comment: Specimen Type: BLOOD SPECIMENOrdering Facility: [facility] Address:[address] [place], [place] [address]Performed By: #### 99662-1 ####[facility] LABCLIA [id number] [place], [place] [address]Rnmhqerf mean volume (Bld) [Entitic vol]9.5 fLNormal9.0-12.7CPremier Health Upper Valley Medical Center on above:Order Comment: Specimen Type: BLOOD SPECIMENOrdering Facility: [facility] Address:[address] [place] [address] Performed By: #### 16625-9 ####[facility] LABCLIA [id number] [place], [place] [address]Xniyztzcy (Bld) [#/Vol]291 10*3/zIRtkqnp143-768RgcjjpgfiJoint Township District [facility] Hospital on above:Order Comment: Specimen Type: BLOOD SPECIMENOrdering Facility: [facility] Address:[address] [place], [place] [address]Performed By: #### 71895-1 ####[facility] LABCLIA [id number] [place], [place] [address]JPG (Bld) [#/Vol]4.57 10*6/uLNormal3.90-5.20[facility] on above:Order Comment: Specimen Type: BLOOD SPECIMENOrdering Facility: [facility] Address:[address] [place], [place] [address]Performed By: #### 56317-7 ####[facility] LABCLIA [id number] [place], [place] [address]IPT (Bld) [#/Vol]13.12 10*3/uLHigh3.70-11.00[facility] on above: Order Comment: Specimen Type: BLOOD SPECIMENOrdering Facility: [facility] Address:[address] [place], [place] [address]Performed By: #### 42770- 8 ####[facility] LABCLIA [id number] [place], [place] [address]Nwmlngqojwrmv metabolic 2000 panelon 57-97-3053Zljdheq [Mass/Vol]4.2 g/dLNormal3.9-4.9CPremier Health Upper [facility] on above:Order Comment: Specimen Type: BLOOD SPECIMENOrdering Facility: [facility] Address:[address] [place], [place] [address]Performed By: #### 34895- 8 ####[facility] LABCLIA [id number] [facility] [place], [place] [address]DWP [Catalytic activity/Vol]69 U/KAeantt35-341YubyjxoglJoint Township District Memorial Hospital on above:Order Comment: Specimen Type: BLOOD SPECIMENOrdering Facility: [facility] Address:[address] [place], [place] [address]Performed By: #### 15369-3 ####[facility]IOKDAPHNE [facility] LABCLIA [id number] [place], [place] [address]RCQ [Catalytic activity/Vol]38 U/LNormal7-38[facility] on above:Order Comment: Specimen Type: BLOOD SPECIMENOrdering Facility: [facility] Address:[address] [place], [place] [address]Performed By: #### 76729- 8 ####[facility] LABCLIA [id number] [place], [place] [address]Scumf gap [Moles/Vol]12 mmol/LNormal8-15[facility] on above:Order Comment: Specimen Type: BLOOD SPECIMENOrdering Facility: [facility] Address:[address] [place], [place] [address]Performed By: #### 67639-0 ####[facility] LABCLIA [id number] [place], [place] [address]ZBS [Catalytic activity/Vol]15 U/FYbuzaz20-22HytxwipfzJoint Township District [facility] on above:Order Comment: Specimen Type: BLOOD SPECIMENOrdering Facility: [facility] Address:[address] [place], [place] [address]Performed By: #### 08326-6 ####[facility] LABCLIA [id number] [place] [address] Bilirubin [Mass/Vol]0.2 mg/dLNormal0.2-1.3CPremier Health Upper [facility] on above:Order Comment: Specimen Type: BLOOD SPECIMENOrdering Facility: [facility] Address:[address] [place], [place] [address]Performed By: #### 85437-6 ####[facility] LABCLIA [id number] [facility], [place] [address]Nkngdel [Mass/Vol]10.3 mg/dLHigh8.5-10.2CPremier Health [facility] on above:Order Comment: Specimen Type: BLOOD SPECIMENOrdering Facility: [facility] Address:[address] [place], [place] [address]Performed By: #### 01792-2 ####[facility] LABCLIA [id number] [facility] [place], [place] [address]Fitgzoit [Moles/Vol]101 mmol/UEywvdd17-108ScudfvkggJoint Township District [facility] on above: Order Comment: Specimen Type: BLOOD SPECIMENOrdering Facility: [facility] Address:[address] [place], [place] [address]Performed By: #### 05156- 8 ####[facility] LABCLIA [id number] [facility] JA DRIVEROASIS BEHAVIORAL HEALTH HOSPITALCAYDENRIPON, [place] [address]KM5 [Moles/Vol]26 mmol/TOcxdkt40-73XicqhcudcJoint Township District [facility] Hospital on above:Order Comment: Specimen Type: BLOOD SPECIMENOrdering Facility: [facility] Address:[address] [place], [place] [address]Performed By: #### 91472-3 ####[facility] LABIA [id number] [facility]ITALMAGGYOASIS BEHAVIORAL HEALTH HOSPITALCAYDENRIPON, [place] [address]Bpiamdfxsg [Mass/Vol]0.64 mg/dL Normal0.58-0.96[facility] on above:Order Comment: Specimen Type: BLOOD SPECIMENOrdering Facility: [facility] Address:[address] [place] [address]Urdvyahjc By: #### 82800-7 ####[facility] LABCLIA [id number] [place], [place] [address]Aaezfqgaaw and Glomerular filtration rate.predicted panel (S/P/Bld)113 mL/min/1.73m???Normal>=60[facility] on above:Order Comment: Specimen Type: BLOOD SPECIMENOrdering Facility: [facility] Address:[address] [place] [address]Yukmss Comment: Estimated Glomerular Filtration Rate (eGFR) is [...] not accurately reflect actual GFR.Performed By: #### 47806-0 ####[facility] LABCLIA [id number] [place], [place] [address]Ktsekqm [Mass/Vol]139 mg/sUGybk66-96YgizyyifwJoint Township District [facility] Hospital on above:Order Comment: Specimen Type: BLOOD SPECIMENOrdering Facility: [facility] Address:[address] [place] [address]Wnggcu Comment: The [place] [employer] (ADA) provides guidance for cutoff [...] Standards of Medical Care in Diabetes 2016, [place] [employer]. Diabetes Care. 2016.39(Suppl 1).Performed By: #### 06052-7 ####[facility] LABCLIA [id number] [place], [place] [address]Rrivkjrdx [Moles/Vol]4.4 mmol/LNormal3.7-5.1CPremier Health Upper [facility] on above:Order Comment: Specimen Type: BLOOD SPECIMENOrdering Facility: [facility] Address:[address] [place], [place] [address]Performed By: #### 11956-1 ####[facility] LABCLIA [id number] [place], [place] [address]Djqvyeu [Mass/Vol]7.1 g/dLNormal6.3-8.0[facility] on above:Order Comment: Specimen Type: BLOOD SPECIMENOrdering Facility: [facility] Address:[address] [place], [place] [address]Performed By: #### 72244- 8 ####[facility] LABCLIA [id number] [place], [place] [address]Egixlp [Moles/Vol]139 mmol/MHegufk620-650AvgamakzkJoint Township District [facility] Hospital on above:Order Comment: Specimen Type: BLOOD SPECIMENOrdering Facility: [facility] Address:[address] [place], [place] [address]Performed By: #### 30975-1 ####[facility] LABCLIA [id number] [place], [place] [address]Kjfr nitrogen [Mass/Vol]18 mg/dLNormal7-21[facility] on above:Order Comment: Specimen Type: BLOOD SPECIMENOrdering Facility: [facility] Address:[address] [place], [place] [address]Performed By: #### 31964-3 ####[facility] LABIA [id number] [place], [place] [address]Zxnxxnwy SerPl-ncon 44-34-5302Jrwtgsee [Mass/Vol]43.1 ng/fHDfwebo05.7-205.1CPremier Health [facility] on above:Order Comment: Specimen Type: BLOOD SPECIMENOrdering Facility: [facility] Address:[address] [place], [place] [address]Performed By: #### 2132-9, 2284-8, 2276-4, 34832-7 ####[facility] LABCLIA [id number] [facility] [id number] [place] [address] [place] OF AMERICAFolate SerPl-mCncon 77-22-8848Mblqkm [Mass/Vol]ng/mLNormal>4.7CPremier Health [facility] on above:Order Comment: Specimen Type: BLOOD SPECIMENOrdering Facility: [facility] Address:[address] [place], [place] [address]Result Comment: A result of > 20 ng/mL is not necessarily indicative of a pathologic or treatable condition: it reflects a limitation of the test methodology.Assay reference range: 4.8 to 24.2 ng/mL. Suitable for detection of folate deficiency.Reference:Folate III (Folate III) [package insert V 1.0 Macedonian]. [facility], [place], [place]: March 2015.Performed By: #### 2132-9, 2284-8, 2276-4, 86219-5 ####[facility] LABCLIA [id number] [place] [id number] [place] AMERICAIgG SerPl-mCnc on 20-54-5659UiP [Mass/Vol]729 mg/uMUqcftu271-2477JklvyguteTrihealth Mccullough-Hyde Memorial Hospital Comment on above:Order Comment: Specimen Type: BLOOD SPECIMENOrdering Facility: [facility] Address:[address] [place] [address] Performed By: #### 2465-3 ####[facility] LABIA [id number] [place] [id number] [place] [employer] capacity panelon 77-38-7495Tdts [Mass/Vol]80 ug/dLNormal 41-186[facility] on above:Order Comment: Specimen Type: BLOOD SPECIMENOrdering Facility: [facility] Address:[address] [place] [address]Uyxqflntx By: #### 2132-9, 2284-8, 2276-4, 15713-7 ####[facility] LABCLIA [id number] [place] [address] [place] OF AMERICAIron binding capacity [Mass/Vol] 416 ug/wBKpzu349-250PedcvizieJoint Township District Memorial Hospital on above:Order Comment: Specimen Type: BLOOD SPECIMENOrdering Facility: [facility] Address:[address] [place], [place] [address]Performed By: #### 2132-9, 2284-8, 2276-4, 98478-7 ####[facility] LABCLIA [id number] [place] [address] [place] AMERICAIron/TIBC [Molar ratio]19.2 %Rlxybx89.0-57.0[facility] on above:Order Comment: Specimen Type: BLOOD SPECIMENOrdering Facility: [facility] Address:[address] [place], [place] [address]Performed By: #### 2132- 9, 2284-8, 2276-4, 01698-7 ####[facility] LABCLIA [id number] [place] [address] [place] AMERICAVit B12 SerPl-mCncon 36-79-4453Xlgbyxojm (Vitamin B12) [Mass/Vol]555 pg/zIBqpdat618-2206 [facility] on above:Order Comment: Specimen Type: BLOOD SPECIMENOrdering Facility: [facility] Address:[address] [place], [place] [address]Performed By: #### 2132-9, 2284-8, 2276-4, 08392-3 ####[facility] LABCLIA [id number] [place] [address] [place] AMERICACNPNon 52-00-6589NLEYUgxcmu [facility] Thyroid glandon 16-74-3798[address] [place] [address] Ultrasound Report Signed Patient: ARIADNA HALEY MR#: [id number] : 1980 Acct:[id number] Age/Sex: 43 / F ADM Date: 08/24/24 Loc: US Attending Dr: Gordo Barfield M.D. Ordering Physician: Gordo Barfield M.D. Date of Service: 08/24/24 Procedure(s): US thyroid Accession Number(s): [id number] cc: GAY DE LA TORRE ; Gordo Barfield M.D. [place] [id number] Patient Name: ARIADNA HALEY MRN: [id number] date: 1980 Sex: F Assigned Patient Location: US Current Patient Location: US Accession/Order Number: [id number] Exam Date: 08/24/2024 09:09 Report Date: 08/24/2024 [...] this was thought to be cystic. The business sales consultant today considered it solid and it was given TI-RADS 4 classification. No internal color flow is shown. Size has not significantly changed when measuring in a comparable manner. No other nodularity is seen. US/US thyroid IMPRESSION: SIMILAR SMALL LEFT THYROID NODULE. FOLLOW-UP IN ONE YEAR IS SUGGESTED. Impression dictated by: Simin Nelson M.D.08/24/2024 9:22 AM Dictation Location: [place] [address] Electronically authenticated by: [id number] Y Date: 08/24/2024 09:22 Dictated By: Simin Nelson M.D. Signed By: 08/24/24923 DD/ 1 TD/TT: Supervisor Fertilizer Processing:DARLENEHRadiology, Radiologist, - 08/24/[address] [address] Ultrasound Report Signed Patient: ARIADNA HALEY MR#: [id number] : 1980 Acct:[id number] Age/Sex: 43 / F ADM Date: 08/24/24 Loc: US Attending Dr: Gordo Barfield M.D. Ordering Physician: Gordo Barfield M.D. Date of Service: 08/24/24 Procedure(s): US thyroid Accession Number(s): [id number] cc: GAY DE LA TORRE ; Gordo Barfield M.D. The [address] [id number] Patient Name: ARIADNA HALEY MRN: [id number] date: 1980 Sex: F Assigned Patient Location: US Current Patient Location: US Accession/Order Number: [id number] Exam Date: 08/24/2024 09:09 Report Date: 08/24/2024 [...] this was thought to be cystic. The business sales consultant today considered it solid and it was given TI-RADS 4 classification. No internal color flow is shown. Size has not significantly changed when measuring in a comparable manner. No other nodularity is seen. US/US thyroid IMPRESSION: SIMILAR SMALL LEFT THYROID NODULE. FOLLOW-UP IN ONE YEAR IS SUGGESTED. Impression dictated by: Simin Nelson M.D.08/24/2024 9:22 AM Dictation Location: [place] [address] Electronically authenticated by: [id number] Y Date: 08/24/2024 09:22 Dictated By: Simin Nelson M.D. Signed By: 08/24/24923 DD/ 1 TD/TT: Supervisor Fertilizer Processing: MABLE GlezRadiology Study observation (narrative)MABLE GlezUS Thyroid glandOrdered By: Radiologist Radiology on 94-07-0807OFQU [employer] Work Phone: cNPNon [phone]er Health [facility] HCG ( test) IA.rapid Ql (U)Ordered By: Adolfo Kang on 38-63-1579GDU ( test) Ql (U)Urine human chorionic gonadotropin (hCG) detection by immunoassayCincinnati Children'S Hospital Medical CenterHCG,Urineon 39-15-4583Ncre HCG ( test) Ql (U)NegativeNoBlue Ridge Regional Hospital Physician GroupComment on above:Result Comment: PERFORMED BY: [place] [address] PATHOLOGIST NET COORDINATOR HAYDEN LLAMAS M.D.Performed By: #### UHCG #### [place] [address] USACNOVon 65-79-5545DIVVIcibxnSrzlecyzo Clinic ClevelandCNPN on 85-36-6560NSIWYtaarwMzbbhofcx Clinic Ievndctsy64([place])D3 SerPl-ncon 708042-rqwgdqrsytxfvf D3 [Mass/Vol]28.5 ng/mLLow31.0-80.0[facility]ull[facility]-Hyde Memorial HospitalComment on above:Order Comment: Specimen Type: BLOOD SPECIMENOrdering Facility: [facility] Address:[address] [place] [address]Xjehrl Comment: Classification of 25 [place] Vitamin D status:Deficiency/Insufficiency: < or = 30 ng/ml.Sufficiency/Optimal Levels: 31- 80 ng/mLToxicity: > 100 ng/mL.Test performed by chemiluminescent immunoassay. Performed By: #### 1989-3 ####[facility] LABCLIA [id number] [facility] HE[facility] INSTITUTEKIQSNYHUZQP71MGJLCJOPX[place] [address] [place] CBC panel Auto (Bld)on 68-06-9518Vmuvhwxyhtq distribution width (RBC) [Ratio] 14.3 %Gzrjxb21.5-15.0[facility] on above:Order Comment: Specimen Type: BLOOD SPECIMENOrdering Facility: [facility] Address:[address] [place], [place] [address]Performed By: #### 42853-2 ####[facility] HOSPITALAnahi [facility] LABIA [id number] [place] [address] [place] [facility]S MEDICAL CENTERHematocrit (Bld) [Volume fraction]41.3 %Avvjib78.0-46.0 [facility] on above:Order Comment: Specimen Type: BLOOD SPECIMENOrdering Facility: [facility] Address:[address] [place], [place] [address]Performed By: #### 84638-8 ####[facility] HOSPITALAnahi TUSCARAWAS HOSPITALIA [id number] [place] [address] [place] [facility] MEDICAL CENTERHemoglobin (Bld) [Mass/Vol]13.5 g/jORvekzu41.5-15.5CPremier Health Upper Valley Medical Center on above:Order Comment: Specimen Type: BLOOD SPECIMENOrdering Facility: [facility] Address:[address] [place], [place] [address]Performed By: #### 62576-4 ####[facility] HOSPITALAnahi [facility] LABIA [id number] [place] [address] [place] AMERICAMCH (RBC) [Entitic mass]30.4 odNeiicq23.0-34.0[facility] on above:Order Comment: Specimen Type: BLOOD SPECIMENOrdering Facility: [facility] Address:[address] [place], [place] [address]Performed By: #### 00569-3 ####[facility]PITALAnahi [facility] LABIA [id number] [place] [address] [place], [place] [address]MCHC (RBC) [Mass/Vol]32.7 g/iLCmqstm43.5-36.0[facility] on above: Order Comment: Specimen Type: BLOOD SPECIMENOrdering Facility: [facility] Address:[address] [place], [place] [address]Performed By: #### 82497- 2 ####[facility] LABIA [id number] [place] [address] [facility]IEW HOSPITALMCV (RBC) [Entitic vol]93.0 sXIdquya26.0-100.0[facility] on above:Order Comment: Specimen Type: BLOOD SPECIMENOrdering Facility: [facility] Address:[address] [place], [place] [address]Performed By: #### 48197-4 ####[facility]OSPITALAnahi [facility]CARAW[facility] HOSPITALIA [id number] [place] [address] [facility] MEDICAL CENTERucleated RBC (Bld) [#/Vol]10*3/uL Normal<0.01[facility] on above:Order Comment: Specimen Type: BLOOD SPECIMENOrdering Facility: [facility] Address:[address] [place], [place] [address]Performed By: #### 30975-9 ####AMHABDIAnahi [facility] LABIA [id number] [place] [address] [place] [facility] Platelet mean volume (Bld) [Entitic vol]9.8 fLNormal9.0-12.7CPremier Health Upper Valley Medical Center on above:Order Comment: Specimen Type: BLOOD SPECIMENOrdering Facility: [facility] Address:[address] [place], [place] [address]Performed By: #### 58128-4 ####[facility] LABIA [id number] [place] [address] [facility]IEW HOSPITALPlatelets (Bld) [#/Vol]341 10*3/uL Odlhfn675-770GbheuegpfJoint Township District Memorial Hospital on above:Order Comment: Specimen Type: BLOOD SPECIMENOrdering Facility: [facility] Address:[address] [place], [place] [address]Performed By: #### 59306-2 ####[facility]ITALT [facility] LABIA [id number] [place] [address] [facility]IEW HOSPITALRB (Bld) [#/Vol]4.44 10*6/uLNormal3.90-5.20[facility]de Memorial HospitalComcorewell health greenville hospital on above:Order Comment: Specimen Type: BLOOD SPECIMENOrdering Facility: [facility] Address:[address] [place], [place] [address]Performed By: #### 88520-9 ####[facility]PITALT TUSCARAWAS HOSPITALIA [id number] [place] [address] [facility] HOSPITALW (Bld) [#/Vol]12.66 10*3/uLHigh3.70-11.00[facility] on above:Order Comment: Specimen Type: BLOOD SPECIMENOrdering Facility: [facility] Address:[address] [place], [place] [address]Performed By: #### 73845-5 ####[facility]ITALT [facility] LABIA [id number] [place] [address] [facility] HOSPITALCRP SerPl-mCncon 10-32-9776BZF [Mass/Vol]0.1 mg/dLNormal<0.9ClevelAultman Hospital on above:Order Comment: Specimen Type: BLOOD SPECIMENOrdering Facility: [facility] Address:[address] [place], [place] [address]Performed By: #### 49786-0, 1987-09 ####[facility]ITALT [facility] LABIA [id number] [place] [address] [facility] AMERICAComprehensive metabolic 2000 panelon 53-04-6953Bznwtrq [Mass/Vol]4.0 g/dLNormal3.9-4.9CPremier Health Upper Valley [facility] Center on above:Order Comment: Specimen Type: BLOOD SPECIMENOrdering Facility: [facility] Address:[address] [place], [place] [address]Performed By: #### 91528-8, 1987-09 ####[facility]HDOM [facility] LABCLIA [id number] [place] [address] [place] AMERICAALP [Catalytic activity/Vol]52 U/GEhxzpc08-586MvoncwvqkJoint [facility] District [facility] Hospital on above:Order Comment: Specimen Type: BLOOD SPECIMENOrdering Facility: [facility] Address:[address] [place] [address] [place], [place] [address]Performed By: #### 85695- 8, 1987-09 ####[facility] LABCLIA [id number] [place] [address] [place] AMERICAALT [Catalytic activity/Vol]26 U/LNormal7-38[facility] on above:Order Comment: Specimen Type: BLOOD SPECIMENOrdering Facility: [facility] Address:[address] [place], [place] [address]Performed By: #### 85312-9, 1987-09 ####[facility] LABCLIA [id number] [place] [address] [place] AMERICAAnion gap [Moles/Vol]10 mmol/LNormal8-15[facility] on above:Order Comment: Specimen Type: BLOOD SPECIMENOrdering Facility: [facility] Address:[address] [place], [place] [address]Performed By: #### 44506- 8, 1987-09 ####[facility] LABCLIA [id number] [place] [address] [place] AMERICAAST [Catalytic activity/Vol]12 U/WZlj16-47BoizvllauJoint Township District Memorial Hospital on above:Order Comment: Specimen Type: BLOOD SPECIMENOrdering Facility: [facility] Address:[facility] YAYONichole [place], [place] [address]Performed By: #### 45440-9, 1987-09 ####[facility] LABCLIA [id number] [place] [address] [place] AMERICABilirubin [Mass/Vol]0.3 mg/dLNormal0.2-1.3[facility] ClevelandComment on above:Order Comment: Specimen Type: BLOOD SPECIMENOrdering Facility: [facility] Address:[address] [place], [place] [address]Performed By: #### 48888- 8, 1987-09 ####[facility] LABCLIA [id number] [place] [address] [place] AMERICACalcium [Mass/Vol]9.5 mg/dLNormal8.5-10.2CPremier Health Upper Valley [facility] Center on above:Order Comment: Specimen Type: BLOOD SPECIMENOrdering Facility: [facility] Address:[address] [place], [place] [address]Performed By: #### 61634-5, 1987-09 ####[facility] LABCLIA [id number] [place] [address] [place] AMERICAChloride [Moles/Vol]103 mmol/QHchseh40-139TsavoobzlJoint [facility] District [facility] Hospital on above: Order Comment: Specimen Type: BLOOD SPECIMENOrdering Facility: [facility] Address:[address] [place], [place] [address]Performed By: #### 63180- 8, 1987-09 ####[facility] LABCLIA [id number] [place] [address] [place] AMERICACO2 [Moles/Vol]27 mmol/HWdikid20-66ZlxytmqdxJoint [facility] on above:Order Comment: Specimen Type: BLOOD SPECIMENOrdering Facility: [facility] Address:[address] [place], [place] [address]Performed By: #### 30602-8, 1987-09 ####[facility] LABCLIA [id number] [place] [address] [place] AMERICACreatinine [Mass/Vol]0.78 mg/dLNormal0.58-0.96[facility] on above:Order Comment: Specimen Type: BLOOD SPECIMENOrdering Facility: [facility] Address:[address] [place], [place] [address]Performed By: #### 63238-9, 1987-09 ####AMHUNM [facility]ENTERT [facility] LABIA [id number] [place] [address] [place] AMERICACreatinine and Glomerular filtration rate.predicted panel (S/P/Bld)97 mL/min/1.73m???Normal>=60Tri[facility]-Hyde Memorial HospitalComment on above: Order Comment: Specimen Type: BLOOD SPECIMENOrdering Facility: [facility] Address:[address] [place], [place] [address]Result Comment: Estimated Glomerular Filtration Rate (eGFR) is [...] not accurately reflect actual GFR.Performed By: #### 50678-8, 1987-09 ####[facility] CENTERT TUSCARAWAS HOSPITALIA [id number] [place] [address] [place] AMERICAGlucose [Mass/Vol]116 mg/wOBogx69-89MlotxznivTrihealth Mccullough-Hyde Memorial Hospital Comment on above:Order Comment: Specimen Type: BLOOD SPECIMENOrdering Facility: [facility] Address:[address] [place] [address] Comment: The [place] Diabetes Association (ADA) provides guidance for cutoff [...] Standards of Medical Care in Diabetes 2016, [place] [employer]. Diabetes Care. 2016.39(Suppl 1).Performed By: #### 85833-9, 1987-09 ####[facility]ENTERT [facility] LABIA [id number] [place] [address] [place] AMERICAPotassium [Moles/Vol]3.8 mmol/LNormal3.7-5.1CPremier Health Upper Valley [facility] Center on above: Order Comment: Specimen Type: BLOOD SPECIMENOrdering Facility: [facility] Address:[address] [place], [place] [address]Performed By: #### 47732- 8, 1987-09 ####[facility] LABCLIA [id number] [place] [address] [place] AMERICAProtein [Mass/Vol]7.6 g/dLNormal6.3-8.0[facility] on above:Order Comment: Specimen Type: BLOOD SPECIMENOrdering Facility: [facility] Address:[address] [place], [place] [address]Performed By: #### 99764-4, 1987-09 ####[facility] LABIA [id number] [place] [address] [place] AMERICASodium [Moles/Vol]140 mmol/HRrbwxq647-745RfnpepounJoint [facility] District [facility] Hospital on above:Order Comment: Specimen Type: BLOOD SPECIMENOrdering Facility: [facility] Address:[address] [place], [place] [address]Performed By: #### 78431-8, 1987-09 ####[facility] LABIA [id number] [place] [address] [place] AMERICAUrea nitrogen [Mass/Vol]18 mg/dLNormal7-21[facility] on above:Order Comment: Specimen Type: BLOOD SPECIMENOrdering Facility: [facility] Address:[address] [place], [place] [address]Performed By: #### 61488-5, 1987-09 ####[facility] LABIA [id number] [place] [address] [place] AMERICAESR Westergren method (Bld) [Velocity]on 94-41-5360NZU (Bld) [Velocity]28 mm/hHigh0-20[facility] ClevelandComment on above:Order Comment: Specimen Type: BLOOD SPECIMENOrdering Facility: [facility] Address:[address] [place], [place] [address]Performed By: #### 4537-7 ####[facility] LABCLIA [id number] [place] [address] [place] CNPNon 56-77-7745MEQORkbamrRhdjoatgrTrinity Health System West Campus HEALTHon 06-13-2024 ALLIED HEALTHNormalCOhioHealth O[facility] W Auto Differential panel (Bld) on 03-79-0497Fmovyzhfy (Bld) [#/Vol]0.10 10*3/uLNINFRegency Hospital Company Basophils/100 WBC (Bld)0.7 %[facility] CompanyDifferential cell count method Nom (Bld)AutoCleveland ClinicEosinophils (Bld) [#/Vol]0.15 10*3/uLNINFRegency Hospital CompanyEosinophils/100 WBC (Bld)1.1 %[facility] CompanyErythrocyte distribution width (RBC) [Ratio]14.2 %11.5 - 15.0 %[facility] CompanyHematocrit (Bld) [Volume fraction]39.0 %36.0 - 46.0 %[facility] CompanyHemoglobin (Bld) [Mass/Vol]13.0 g/dL 11.5 - 15.5 g/dLRegency Hospital CompanyImmature granulocytes (Bld) [#/Vol]0.21 10*3/uL HighNINFRegency Hospital CompanyImmature granulocytes/100 WBC (Bld)1.5 %[facility] Interpretation and review of laboratory resultsAbnormalCWayne HealthCare Main Campus Lymphocytes (Bld) [#/Vol]2.16 10*3/uLRegency Hospital CompanyLymphocytes/100 WBC (Bld) 15.4 %[facility] Hospital CompanyMCH (RBC) [Entitic mass]30.5 pg26.0 - 34.0 pgClevelWooster Community HospitalMCHC (RBC) [Mass/Vol]33.3 g/dL30.5 - 36.0 g/dLSt. John of God HospitalV (RBC) [Entitic vol]91.5 fL80.0 - 100.0 fLCleveland ClinicMonocytes (Bld) [#/Vol]0.79 10*3/uLNINFRegency Hospital CompanyMonocytes/100 WBC (Bld)5.6 %[facility] Neutrophils (Bld) [#/Vol]10.59 10*3/uLMadison HealthNeutrophils/100 WBC (Bld)75.7 %[facility] CompanyNucleated RBC (Bld) [#/Vol]NINFCWayne HealthCare Main Campus Nucleated RBC/100 WBC (Bld) [Ratio]0.0 %/100 WBCRegency Hospital CompanyPlatelet mean volume (Bld) [Entitic vol]9.9 fL9.0 - 12.7 fLCWayne HealthCare Main CampusPlatelets (Bld) [#/Vol]327 10*3/uLRegency Hospital CompanyRBC (Bld) [#/Vol]4.26 10*6/uL3.90 - 5.20 m/uL [facility] CompanyWBC (Bld) [#/Vol]14.00 10*3/uLFayette County Memorial Hospital ClinicBasophils (Bld) [#/Vol]0.10 10*3/uLNormal<0.11CTrinity Health System [facility] Comment on above:Order Comment: Specimen Type: BLOOD SPECIMENOrdering Facility: [facility] Address:[address] [place] [address] Performed By: #### 09575-3 ####[facility] LABIA [id number] [place], [place] [address]Topfsmhyy/100 WBC (Bld)0.7 % NormalTrihealth Mccullough-Hyde Memorial HospitalComment on above:Order Comment: Specimen Type: BLOOD SPECIMENOrdering Facility: [facility] Address:[address] [place], [place] [address]Performed By: #### 38004-6 ####[facility] LABIA [id number] [place] [address] Differential cell count method Nom (Bld)AutoNormalCTrinity Health System [facility] City [facility] Comment on above:Order Comment: Specimen Type: BLOOD SPECIMENOrdering Facility: [facility] Address:[address] [place] [address] Performed By: #### 60349-8 ####[facility] LABCLIA [id number] [place], [place] [address]Fimsapgrytx (Bld) [#/Vol]0.15 10*3/uLNormal<0.46[facility] on above:Order Comment: Specimen Type: BLOOD SPECIMENOrdering Facility: [facility] Address:[address] [place], [place] [address]Performed By: #### 17284-3 ####[facility] LABCLIA [id number] [place], [place] [address]Uefdllheahi/100 WBC (Bld)1.1 %NormalJoint Township District Memorial Hospital on above:Order Comment: Specimen Type: BLOOD SPECIMENOrdering Facility: [facility] Address:[address] [place], [place] [address]Performed By: #### 43820-3 ####[facility] LABIA [id number] [place], [place] [address]Riyzqwlliwo distribution width (RBC) [Ratio]14.2 %Fxjxvw24.5-15.0[facility] on above: Order Comment: Specimen Type: BLOOD SPECIMENOrdering Facility: [facility] Address:[address] [place], [place] [address]Performed By: #### 52192- 8 ####[facility] LABCLIA [id number] [place], [place] [address]Emajxeoxlt (Bld) [Volume fraction]39.0 %Wayrwc80.0-46.0 [facility] on above:Order Comment: Specimen Type: BLOOD SPECIMENOrdering Facility: [facility] Address:[address] [place], [place] [address]Performed By: #### 82224-1 ####[facility] LABIA [id number] [place], [place] [address]Vcsmyntdlp (Bld) [Mass/Vol]13.0 g/oBTaticz56.5-15.5CPremier Health Upper Valley [facility] on above: Order Comment: Specimen Type: BLOOD SPECIMENOrdering Facility: [facility] Address:[address] [place], [place] [address]Performed By: #### 10060- 8 ####[facility] LABCLIA [id number] [place], [place] [address]Nrqwkclr granulocytes (Bld) [#/Vol]0.21 10*3/uLHigh<0.10 [facility] on above:Order Comment: Specimen Type: BLOOD SPECIMENOrdering Facility: [facility] Address:[address] [place], [place] [address]Performed By: #### 45204-3 ####[facility] LABCLIA [id number] [place], [place] [address]Crqgrllq granulocytes/100 WBC (Bld)1.5 %NormalJoint Township District Memorial Hospital on above: Order Comment: Specimen Type: BLOOD SPECIMENOrdering Facility: [facility] Address:[address] [place], [place] [address]Performed By: #### 47137- 8 ####[facility] LABCLIA [id number] [place], [place] [address]Njttkubqjnk (Bld) [#/Vol]2.16 10*3/uLNormal1.00-4.00 [facility] on above:Order Comment: Specimen Type: BLOOD SPECIMENOrdering Facility: [facility] Address:[address] [place], [place] [address]Performed By: #### [id number] ####[facility] LABCLIA [id number] [place], [place] [address]Svxsftsgegr/100 WBC (Bld)15.4 %[facility] on above:Order Comment: Specimen Type: BLOOD SPECIMENOrdering Facility: [facility] Address:[address] [place], [place] [address]Performed By: #### [id number] ####[facility] LABCLIA [id number] [place], [place] [address]QBW (RBC) [Entitic mass]30.5 ueNgzdoi07.0-34.0[facility] on above:Order Comment: Specimen Type: BLOOD SPECIMENOrdering Facility: [facility] Address:[address] [place], [place] [address]Performed By: #### 03909-5 ####[facility] LABCLIA [id number] [place], [place] [address]NJOV (RBC) [Mass/Vol]33.3 g/kZZmncxa10.5-36.0[facility] on above: Order Comment: Specimen Type: BLOOD SPECIMENOrdering Facility: [facility] Address:[address] [place], [place] [address]Performed By: #### 54320- 8 ####[facility] LABCLIA [id number] [place], [place] [address]NJM (RBC) [Entitic vol]91.5 fLKzuzgb39.0-100.0[facility] on above:Order Comment: Specimen Type: BLOOD SPECIMENOrdering Facility: [facility] Address:[address] [place], [place] [address]Performed By: #### 97792-6 ####[facility] LABCLIA [id number] [place], [place] [address]Itgriimya (Bld) [#/Vol]0.79 10*3/uLNormal<0.87[facility] on above:Order Comment: Specimen Type: BLOOD SPECIMENOrdering Facility: [facility] Address:[address] [place], [place] [address]Performed By: #### 92806- 8 ####[facility] LABCLIA [id number] [place], [place] [address]Uwejbmzrv/100 WBC (Bld)5.6 %NormalJoint Township District Memorial Hospital on above:Order Comment: Specimen Type: BLOOD SPECIMENOrdering Facility: [facility] Address:[address] [place], [place] [address]Performed By: #### 16795-3 ####[facility] LABCLIA [id number] [place], [place] [address]Vabmaukqsnq (Bld) [#/Vol]10.59 10*3/uLHigh1.45-7.50[facility] on above:Order Comment: Specimen Type: BLOOD SPECIMENOrdering Facility: [facility] Address:[address] [place], [place] [address]Performed By: #### 59223-0 ####[facility] LABCLIA [id number] [place], [place] [address]Txvmsyixadi/100 WBC (Bld)75.7 %NormalJoint Township District Memorial Hospital on above:Order Comment: Specimen Type: BLOOD SPECIMENOrdering Facility: [facility] Address:[address] [place], [place] [address]Performed By: #### 15980-6 ####[facility] LABCLIA [id number] [place], [place] [address]Cegsttukp RBC (Bld) [#/Vol] 10*3/uLNormal<0.01[facility] on above:Order Comment: Specimen Type: BLOOD SPECIMENOrdering Facility: [facility] Address:[address] [place], [place] [address]Performed By: #### 41986-6 ####[facility] LABCLIA [id number] [place], [place] [address]Benibxgmk RBC/100 WBC (Bld) [Ratio]0.0 /100 WBCNormal [facility] on above:Order Comment: Specimen Type: BLOOD SPECIMENOrdering Facility: [facility] Address:[address] [place], [place] [address]Performed By: #### 69559-2 ####[facility] LABCLIA [id number] [place], [place] [address]Znfqmjad mean volume (Bld) [Entitic vol]9.9 fLNormal9.0-12.7CPremier Health Upper [facility] on above:Order Comment: Specimen Type: BLOOD SPECIMENOrdering Facility: [facility] Address:[address] [place] [address] Performed By: #### 29793-0 ####[facility] LABCLIA [id number] [place], [place] [address]Uwsfpnnbe (Bld) [#/Vol]327 10*3/zZXyqkog022-497WfwmxsjtpJoint [facility] on above:Order Comment: Specimen Type: BLOOD SPECIMENOrdering Facility: [facility] Address:[address] [place], [place] [address]Performed By: #### 70019-5 ####[facility] LABCLIA [id number] [place], [place] [address]LYL (Bld) [#/Vol]4.26 10*6/uLNormal3.90-5.20[facility] on above:Order Comment: Specimen Type: BLOOD SPECIMENOrdering Facility: [facility] Address:[address] [place], [place] [address]Performed By: #### 92296-0 ####[facility] LABCLIA [id number] [place], [place] [address]KMP (Bld) [#/Vol]14.00 10*3/uLHigh3.70-11.00[facility] on above: Order Comment: Specimen Type: BLOOD SPECIMENOrdering Facility: [facility] Address:[address] [place], [place] [address]Performed By: #### 99105- 8 ####[facility] LABCLIA [id number] [place], [place] [address]CQTWEBnk 59-21-4058GWUJKQKmyrsiPkxsiboerDennis Ville [address] panelOrdered By: Josse Merlos on 89-26-9197Jpcpjgz [Mass/Vol]3.9 g/dL3.9 - 4.9 g/dLAline ClinicALP [Catalytic activity/Vol]73 U/L34 - 123 U/LCleveland ClinicALT [Catalytic activity/Vol]24 U/L7 - 38 U/L Aline ClinicAnion gap [Moles/Vol]15 mmol/L8 - 15 mmol/LCleveland ClinicAST [Catalytic activity/Vol]12 U/LLow13 - 35 U/LCleveland ClinicBilirubin [Mass/Vol] mg/dLLow0.2 - 1.3 mg/dLAline ClinicCalcium [Mass/Vol]9.2 mg/dL8.5 - 10.2 mg/dLAline ClinicChloride [Moles/Vol]104 mmol/L98 - 107 mmol/LCleveland ClinicCO2 [Moles/Vol]19 mmol/LLow22 - 30 mmol/LCleveland ClinicCreatinine [Mass/Vol]0.58 mg/dL0.58 - 0.96 mg/dLAline ClinicGFR/1.73 sq M.predicted among non-blacks MDRD (S/P/Bld) [Vol rate/Area]115 mL/min/{1.73_m2}- PINF [facility] Hospital CompanyComment on above:Estimated Glomerular Filtration Rate (eGFR) is calculated using the 2020 CKD-EPI creatinine equation. This equation utilizes serum creatinine, sex, and age as parameters. The creatinine assay has traceable calibration to isotope dilution-mass spectrometry. Refer to KDIGO guidelines for clinical interpretation. In patients with unstable renal function, e.g. those with acute kidney injury, the eGFRmay not accurately reflect actual GFR.Glucose [Mass/Vol]163 mg/iGGdtz34 - 99 mg/dLRegency Hospital CompanyComment on above:The [place] Diabetes Association (ADA) provides guidance for cutoff [...] Standards of Medical Care in Diabetes 2016, [place] [employer] Association. Diabetes Care. 2016.39(Suppl 1). Interpretation and review of laboratory resultsAbnormalCleveland ClinicPotassium [Moles/Vol]3.9 mmol/L3.7 - 5.1 mmol/LCashtabula county medical center ClinicProtein [Mass/Vol]6.8 g/dL 6.3 - 8.0 g/dLAline ClinicSodium [Moles/Vol]138 mmol/L136 - 144 mmol/L [facility] CompanyUrea nitrogen [Mass/Vol]13 mg/dL7 - 21 mg/dLFisher-Titus Medical CenterComprehensive metabolic 2000 panelon 76-46-1376Hfmnlks [Mass/Vol]3.9 g/dLNormal3.9-4.9CTrinity Health System Twin City Medical CenterComcorewell health greenville hospital on above:Order Comment: Specimen Type: BLOOD SPECIMENOrdering Facility: [facility] Address:[address] [place], [place] [address]Performed By: #### 53658- 8 ####[facility] LABCLIA [id number] [place], [place] [address]OYC [Catalytic activity/Vol]73 U/IDiosvt23-182XyakstjwjJoint Township District [facility] Hospital on above:Order Comment: Specimen Type: BLOOD SPECIMENOrdering Facility: [facility] Address:[address] [place], [place] [address]Performed By: #### 86194-8 ####[facility] LABCLIA [id number] [place], [place] [address]UNK [Catalytic activity/Vol]24 U/LNormal7-38[facility] on above:Order Comment: Specimen Type: BLOOD SPECIMENOrdering Facility: [facility] Address:[address] [place], [place] [address]Performed By: #### 55994- 8 ####[facility] LABCLIA [id number] [place], [place] [address]Thxrg gap [Moles/Vol]15 mmol/LNormal8-15[facility] on above:Order Comment: Specimen Type: BLOOD SPECIMENOrdering Facility: [facility] Address:[address] [place], [place] [address]Performed By: #### 78559-6 ####[facility] LABCLIA [id number] [place], [place] [address]VFI [Catalytic activity/Vol]12 U/DLkr05-67YsfqmtlddJoint Township District Memorial Hospital on above:Order Comment: Specimen Type: BLOOD SPECIMENOrdering Facility: [facility] Address:[address] [place], [place] [address]Performed By: #### 50707-1 ####[facility] LABCLIA [id number] [place] [address] Bilirubin [Mass/Vol]mg/dLLow0.2-1.3CPremier Health Upper [facility] on above: Order Comment: Specimen Type: BLOOD SPECIMENOrdering Facility: [facility] Address:[address] [place], [place] [address]Performed By: #### 46313- 8 ####[facility] LABCLIA [id number] [place], [place] [address]Wsaiqsc [Mass/Vol]9.2 mg/dLNormal8.5-10.2CPremier Health Upper [facility] on above:Order Comment: Specimen Type: BLOOD SPECIMENOrdering Facility: [facility] Address:[address] [place], [place] [address]Performed By: #### 11712-9 ####[facility] LABCLIA [id number] [place], [place] [address]Wxxrrfsa [Moles/Vol]104 mmol/L Xivrgx37-520DvpxyysrhJoint Township District Memorial Hospital on above:Order Comment: Specimen Type: BLOOD SPECIMENOrdering Facility: [facility] Address:[address] [place], [place] [address]Performed By: #### 09292-5 ####[facility] LABCLIA [id number] [place] [address] CO2 [Moles/Vol]19 mmol/ZIrn44-83CumnuapcpJoint [facility] on above:Order Comment: Specimen Type: BLOOD SPECIMENOrdering Facility: [facility] Address:[address] [place], [place] [address]Performed By: #### 81717- 8 ####[facility] LABIA [id number] [place], [place] [address]Gwckhoqjaw [Mass/Vol]0.58 mg/dLNormal0.58-0.96[facility] on above:Order Comment: Specimen Type: BLOOD SPECIMENOrdering Facility: [facility] Address:[address] [place], [place] [address]Performed By: #### 12419-4 ####[facility] [id number] [place], [place] [address]Eaiddeqdsc and Glomerular filtration rate.predicted panel (S/P/Bld)115 mL/min/1.73m???Normal >=60[facility] on above:Order Comment: Specimen Type: BLOOD SPECIMENOrdering Facility: [facility] Address:[address] [place], [place] [address]Result Comment: Estimated Glomerular Filtration Rate (eGFR) is calculated using the 2020 CKD-EPI creatinine equation. This equation utilizes serum creatinine, sex, and age as parameters. The creatinine assay has traceable calibration to isotope dilution-mass spectrometry. Refer to KDIGO guidelines for clinical interpretation. In patients with unstable renal function, e.g. those with acute kidney injury, the eGFR may not accurately reflect actual GFR.Performed By: #### 19148-7 ####[facility] LABIA [id number] [place], [place] [address]Smnccsk [Mass/Vol]163 mg/zOWxzx81-34LokobavrqJoint Township District Memorial Hospital on above:Order Comment: Specimen Type: BLOOD SPECIMENOrdering Facility: [facility] Address:[address] [place], [place] [address]Result Comment: The [place] Diabetes Association (ADA) provides guidance for cutoff [...] Standards of Medical Care in Diabetes 2016, [place] [employer] Association. Diabetes Care. 2016.39(Suppl 1).Performed By: #### 97687-1 ####[facility] LABCLIA [id number] [place], [place] [address]Sbtvjkisx [Moles/Vol]3.9 mmol/LNormal3.7-5.1CPremier Health Upper [facility] on above: Order Comment: Specimen Type: BLOOD SPECIMENOrdering Facility: [facility] Address:[address] [place], [place] [address]Performed By: #### 77075- 8 ####[facility] LABCLIA [id number] [place], [place] [address]Dprreia [Mass/Vol]6.8 g/dLNormal6.3-8.0[facility] on above:Order Comment: Specimen Type: BLOOD SPECIMENOrdering Facility: [facility] Address:[address] [place], [place] [address]Performed By: #### 53488-5 ####[facility] LABCLIA [id number] [place], [place] [address]Hgsshv [Moles/Vol]138 mmol/L Tecwol157-457GjrdwxiakJoint Township District [facility] Hospital on above:Order Comment: Specimen Type: BLOOD SPECIMENOrdering Facility: [facility] Address:[address] [place], [place] [address]Performed By: #### 72278-8 ####[facility] LABCLIA [id number] [place] [address] Urea nitrogen [Mass/Vol]13 mg/dLNormal-[facility] on above:Order Comment: Specimen Type: BLOOD SPECIMENOrdering Facility: [facility] Address:[address] [place], [place] [address]Performed By: #### 35019-2 ####[facility] LABCLIA [id number] [place], [place] [address]RZC Westergren method (Bld) [Velocity]on 06-13-2024 ESR (Bld) [Velocity]30 mm/[facility] Liverpool City HospitalInterpretation and review of laboratory resultsAbnormalCleveland ProMedica Flower HospitalESR (Bld) [Velocity]30 mm/hHigh0-20[facility] on above:Order Comment: Specimen Type: BLOOD SPECIMENOrdering Facility: [facility] Address:[address] [place], [place] [address]Performed By: #### 4537-7 ####[facility] LABCLIA [id number] [place] [address] [place] OF AMERICAFERRITINon 98-49-1246Vttvifqv [Mass/Vol]30.9 ng/mL14.7 - 205.1 ng/mLCleveland ClinicFOLATE, SERUMon 37-61-8489Yjxcct [Mass/Vol]19.6 ng/mL4.7 - PINF ng/mLCleveland ClinicFerritin SerPl-mCncon 87-96-7699Dhmquweq [Mass/Vol]30.9 ng/oVZzpptx03.7-205.1ClevelAultman Hospital on above: Order Comment: Specimen Type: BLOOD SPECIMENOrdering Facility: [facility] Address:[address] [place], [place] [address]Performed By: #### 2284- 8, 2276-4, 40878-0, 2132-9 ####[facility] LABCLIA [id number] [facility] X93ZRUYOVBHW, [place] [address] [place] AMERICAFerritin [Mass/Vol]on 16-92-0979Trouorlipzdcrp and review of laboratory resultsNormal [facility] Hospital - ColumbusFolate SerPl-mCncon 49-73-1215Cqhbsu [Mass/Vol] 19.6 ng/mLNormal>4.7CPremier Health Upper [facility] on above:Order Comment: Specimen Type: BLOOD SPECIMENOrdering Facility: [facility] Address:[address] [place], [place] [address]Performed By: #### 2284-8, 2276-4, 13900-1, 2132-9 ####[facility] LABCLIA [id number] [place] [address] [place] IMMUNOGLOBULINS,IGG,IGA,IGMon 50-15-3050MzO [Mass/Vol]170 mg/uCDjlqrc32-901 [facility] on above:Order Comment: Specimen Type: BLOOD SPECIMENOrdering Facility: [facility] Address:[address] [place], [place] [address]Performed By: #### SERIMM ####[facility] LABCLIA [id number] [place] [address] [place] AMERICAIgG [Mass/Vol]663 mg/lLLhc660-0353ClxzxwwobJoint [facility] on above:Order Comment: Specimen Type: BLOOD SPECIMENOrdering Facility: [facility] Address:[address] [place], [place] [address]Performed By: #### SERIMM ####[facility] LABCLIA [id number] [place] [address] [place] AMERICAIgM [Mass/Vol]376 mg/dL Cxex66-391QnrlsktjnJoint [facility] on above:Order Comment: Specimen Type: BLOOD SPECIMENOrdering Facility: [facility] Address:[address] [place], [place] [address]Performed By: #### SERIMM ####[facility] LABCLIA [id number] [place] [address] [place] AMERICAIron and Iron binding capacity panelon 61-73-3296Goqt [Mass/Vol]64 ug/tCUygodg46-479SsjisfhtmJoint [facility] on above:Order Comment: Specimen Type: BLOOD SPECIMENOrdering Facility: [facility] Address:[address] [place], [place] [address]Performed By: #### 2284- 8, 2276-4, 39171-5, 2131-9 ####[facility] LABCLIA [id number] [place] [address] [place] AMERICAIron binding capacity [Mass/Vol]409 ug/cKFppj592-121WzjxxtvdjJoint [facility] on above:Order Comment: Specimen Type: BLOOD SPECIMENOrdering Facility: [facility] Address:[address] [place] [address] Performed By: #### 2284-8, 2276-4, 15224-0, 9 ####[facility] LABCLIA [id number] [place] [address] [place] AMERICAIron/TIBC [Molar ratio]15.6 %Rmqglk24.0-57.0[facility] on above:Order Comment: Specimen Type: BLOOD SPECIMENOrdering Facility: [facility] Address:[address] [place], [place] [address]Performed By: #### 2284-8, 2276-4, 82819-9, 9 ####[facility] LABCLIA [id number] [place] [address] [place] AMERICALaboratory - Chemistry and Chemistry - challengeon 13-57-2053EcM [Mass/Vol]170 mg/dL70 - 400 mg/dLRegency Hospital CompanyIgG [Mass/Vol]663 mg/vPOoz445 - 1600 mg/dLAline ClinicIgM [Mass/Vol]376 mg/uKMcfz01 - 230 mg/dLRegency Hospital CompanyNo Panel Informationon 72-55-8633Siynwlmyolqnnd and review of laboratory resultsNormalCzanesville city hospitaland ProMedica Flower HospitalInterpretation and review of laboratory resultsAbnormalCleveland ProMedica Flower HospitalVITAMIN B12 on 68-91-1294Hsuesichk (Vitamin B12) [Mass/Vol]516 pg/mL232 - 1245 pg/mL [facility] Hospital CompanyVit B12 SerPl-mCncon 98-73-7683Yjrotsbhy (Vitamin B12) [Mass/Vol]516 pg/wWPhclil186-6160Rlbrbvuey Clinic ClevelandComment on above: Order Comment: Specimen Type: BLOOD SPECIMENOrdering Facility: [facility] Address:[address] [place], [place] [address]Performed By: #### 2284- 8, 2276-4, 60007-4, 2132-9 ####[facility] LABCLIA [id number] [place] [address] [place] AMERICACNPNon 07-16-5528HYQTMcmlmgSxithayij Clinic ClevelandIGP,APTIMA HPV,AGE GDLNon 16-06-8795VHY GDLN ACOG TESTINGNote.NOMS HealthcareComment on above:TESTS RESULT FLAG UNITS REF RANGE LAB Clinician Provided Cytology Information Source.............Cervix;Endocervix No. of containers..01 ThinPrep Vial Age Algo ACOG Vicky... FLAG LEGEND: L-Low Normal,H-High Normal,LL-Alert Low,HH-Alert High <-Panic Low,>-Panic High,A-Abnormal,AA-Critical Abnormal Performed at: 01 =[address] [place] [address] Aparna Solorzano MD, HPV APTIMANegativeNegativeNOMS HealthcareComment on above:This nucleic acid amplification test detects fourteen high- risk HPV types (16,18,31,33,35,39,45,51,52,56,58,59,66,68) without differentiation. Performed at: =[facility]co[address] [id number] Washing Machine Loader And Puller: Aparna Solorzano MD, Phone: [phone] Performed at: [address] [id number] Washing [employer] Loader And Puller: Aparna Solorzano MD, Phone: [phone] IGP, APTIMA HPV, RFX 16/18,45Note.NOMS HealthcareComment on above:TESTS RESULT FLAG UNITS REF RANGE LAB DIAGNOSIS: 02 NEGATIVE FOR INTRAEPITHELIAL LESION OR MALIGNANCY. Specimen adequacy: 02 Satisfactory for evaluation. Endocervical and/or squamous metaplastic cells (endocervical component) are present. Performed by: 02 Kenzie Kam, Interlocker (ASCP) . 02 Note: Note 02 The [...] Low,>-Panic High,A-Abnormal,AA-Critical Abnormal Performed at: [address] [facility] [address] [place] [address] Aparna Solorzano MD, BRUSH-SPATULA CERVIX ENDOCERVIX CLINISYNCMercy Hospital St[facility] W Auto Differential panel (Bld)on 05-19-2024 Basophils (Bld) [#/Vol]0.08 10*3/uLNIGlenbeigh HospitalBasophils/100 WBC (Bld) 0.6 %[facility] Hospital CompanyDifferential cell count method Nom (Bld)AutoCleveland ClinicEosinophils (Bld) [#/Vol]0.17 10*3/uLNINFRegency Hospital CompanyEosinophils/100 WBC (Bld)1.2 %[facility] Hospital CompanyErythrocyte distribution width (RBC) [Ratio]14.3 % 11.5 - 15.0 %[facility] Hospital CompanyHematocrit (Bld) [Volume fraction]39.8 %36.0 - 46.0 %[facility] Hospital CompanyHemoglobin (Bld) [Mass/Vol]13.4 g/dL11.5 - 15.5 g/dLRegency Hospital CompanyImmature granulocytes (Bld) [#/Vol]0.13 10*3/uLHighNINFRegency Hospital Company Immature granulocytes/100 WBC (Bld)0.9 %[facility] CompanyInterpretation and review of laboratory resultsAbnormalCleveland ClinicLymphocytes (Bld) [#/Vol] 2.96 10*3/uLRegency Hospital CompanyLymphocytes/100 WBC (Bld)20.5 %[facility] God HospitalH (RBC) [Entitic mass]31.1 pg26.0 - 34.0 pgCNorwalk Memorial HospitalHC (RBC) [Mass/Vol] 33.7 g/dL30.5 - 36.0 g/dLRegency Hospital CompanyMCV (RBC) [Entitic vol]92.3 fL80.0 - 100.0 fLCashtabula county medical center ClinicMonocytes (Bld) [#/Vol]0.87 10*3/uLHighNINFRegency Hospital CompanyMonocytes/100 WBC (Bld)6.0 %[facility] Hospital CompanyNeutrophils (Bld) [#/Vol]10.20 10*3/uLHighRegency Hospital CompanyNeutrophils/100 WBC (Bld)70.8 %[facility] Nucleated RBC (Bld) [#/Vol]NINFClevelWooster Community HospitalNucleated RBC/100 WBC (Bld) [Ratio]0.0 %/100 WBCRegency Hospital CompanyPlatelet mean volume (Bld) [Entitic vol]10.1 fL9.0 - 12.7 fLCashtabula county medical center ClinicPlatelets (Bld) [#/Vol]303 10*3/uLRegency Hospital CompanyRBC (Bld) [#/Vol]4.31 10*6/uL3.90 - 5.20 m/uLRegency Hospital CompanyWBC (Bld) [#/Vol]14.41 10*3/uLHighSheltering Arms Hospital ClinicBasophils (Bld) [#/Vol] 0.08 10*3/uLNormal<0.11CPremier Health Upper [facility] on above:Order Comment: Specimen Type: BLOOD SPECIMENOrdering Facility: [facility] Address:[address] [place], [place] [address]Performed By: #### 89470-7 ####[facility] LABIA [id number] [place], [place] [address]Kpmgyzove/100 WBC (Bld)0.6 %NormalJoint Township District Memorial Hospital on above:Order Comment: Specimen Type: BLOOD SPECIMENOrdering Facility: [facility] Address:[address] [place], [place] [address]Performed By: #### 11983-8 ####[facility] LABCLIA [id number] [place], [place] [address]Ltzzulkougax cell count method Nom (Bld)AutoNormalCPremier Health Upper Valley Medical Center on above:Order Comment: Specimen Type: BLOOD SPECIMENOrdering Facility: [facility] Address:[address] [place], [place] [address]Performed By: #### 40342-7 ####[facility] LABCLIA [id number] [place], [place] [address]Bdzexmcmyka (Bld) [#/Vol]0.17 10*3/uLNormal<0.46[facility] on above:Order Comment: Specimen Type: BLOOD SPECIMENOrdering Facility: [facility] Address:[address] [place], [place] [address]Performed By: #### 38250-6 ####[facility] HOSPITALDAPHNE [facility] LABIA [id number] [place], [place] [address]Gkncyjutpmu/100 WBC (Bld)1.2 %NormalJoint Township District Memorial Hospital on above:Order Comment: Specimen Type: BLOOD SPECIMENOrdering Facility: [facility] Address:[address] [place], [place] [address]Performed By: #### 44339-1 ####[facility] LABCLIA [id number] [place], [place] [address]Jidcrxcymlp distribution width (RBC) [Ratio]14.3 %Normal 11.5-15.0[facility] on above:Order Comment: Specimen Type: BLOOD SPECIMENOrdering Facility: [facility] Address:[address] [place], [place] [address]Performed By: #### 85170-3 ####[facility] LABIA [id number] [place] [address] Hematocrit (Bld) [Volume fraction]39.8 %Eavuxd28.0-46.0[facility] on above:Order Comment: Specimen Type: BLOOD SPECIMENOrdering Facility: [facility] Address:[address] [place], [place] [address]Performed By: #### [id number] ####[facility] LABCLIA [id number] [place], [place] [address]Tvfktwovbf (Bld) [Mass/Vol]13.4 g/mMYnthem06.5-15.5[facility] on above:Order Comment: Specimen Type: BLOOD SPECIMENOrdering Facility: [facility] Address:[address] [place], [place] [address]Performed By: #### [id number] ####[facility] LABCLIA [id number] [place], [place] [address]Aimuilju granulocytes (Bld) [#/Vol]0.13 10*3/uLHigh<0.10 [facility] [facility] on above:Order Comment: Specimen Type: BLOOD SPECIMENOrdering Facility: [facility] Address:[address] [place], [place] [address]Performed By: #### 82086-9 ####[facility] LABCLIA [id number] [place], [place] [address]Qkrcanat granulocytes/100 WBC (Bld)0.9 %[facility] on above: Order Comment: Specimen Type: BLOOD SPECIMENOrdering Facility: [facility] Address:[address] [place], [place] [address]Performed By: #### 20055- 8 ####[facility] LABCLIA [id number] [place], [place] [address]Ylkpzfespie (Bld) [#/Vol]2.96 10*3/uLNormal1.00-4.00 [facility] on above:Order Comment: Specimen Type: BLOOD SPECIMENOrdering Facility: [facility] Address:[address] [place], [place] [address]Performed By: #### 87135-7 ####[facility] LABIA [id number] [place], [place] [address]Gcfyumgxjwn/100 WBC (Bld)20.5 %NormalJoint Township District Memorial Hospital on above:Order Comment: Specimen Type: BLOOD SPECIMENOrdering Facility: [facility] Address:[address] [place], [place] [address]Performed By: #### 64042-1 ####[facility] LABCLIA [id number] [place], [place] [address]PVE (RBC) [Entitic mass]31.1 bjSoujvh50.0-34.0[facility] on above:Order Comment: Specimen Type: BLOOD SPECIMENOrdering Facility: [facility] Address:[address] [place], [place] [address]Performed By: #### 58032-0 ####[facility] LABIA [id number] [place], [place] [address]CLOM (RBC) [Mass/Vol]33.7 g/mVIrebgn99.5-36.0[facility] on above: Order Comment: Specimen Type: BLOOD SPECIMENOrdering Facility: [facility] Address:[address] [place], [place] [address]Performed By: #### 07691- 8 ####[facility] LABIA [id number] [place], [place] [address]VYD (RBC) [Entitic vol]92.3 zONcuggn16.0-100.0[facility] on above:Order Comment: Specimen Type: BLOOD SPECIMENOrdering Facility: [facility] Address:[address] [place], [place] [address]Performed By: #### 44902-6 ####[facility] LABIA [id number] [place], [place] [address]Zilxxiakz (Bld) [#/Vol]0.87 10*3/uLHigh<0.87[facility] on above:Order Comment: Specimen Type: BLOOD SPECIMENOrdering Facility: [facility] Address:[address] [place], [place] [address]Performed By: #### 40012- 8 ####[facility] LABCLIA [id number] [place], [place] [address]Fabdmvjjb/100 WBC (Bld)6.0 %NormalJoint Township District Memorial Hospital on above:Order Comment: Specimen Type: BLOOD SPECIMENOrdering Facility: [facility] Address:[address] [place], [place] [address]Performed By: #### 78524-0 ####[facility] LABCLIA [id number] [place], [place] [address]Bijxuaerzdi (Bld) [#/Vol]10.20 10*3/uLHigh1.45-7.50[facility] on above:Order Comment: Specimen Type: BLOOD SPECIMENOrdering Facility: [facility] Address:[address] [place], [place] [address]Performed By: #### 91052-8 ####[facility] LABCLIA [id number] [place], [place] [address]Kjnyfjrrtjm/100 WBC (Bld)70.8 %NormalJoint Township District Memorial Hospital on above:Order Comment: Specimen Type: BLOOD SPECIMENOrdering Facility: [facility] Address:[address] [place], [place] [address]Performed By: #### 15745-9 ####[facility] LABCLIA [id number] [place], [place] [address]Fcjkyxaqk RBC (Bld) [#/Vol] 10*3/uLNormal<0.01[facility] on above:Order Comment: Specimen Type: BLOOD SPECIMENOrdering Facility: [facility] Address:[address] [place], [place] [address]Performed By: #### 36663-9 ####[facility] LABCLIA [id number] [place], [place] [address]Ioiltaslm RBC/100 WBC (Bld) [Ratio]0.0 /100 WBCNormal [facility] on above:Order Comment: Specimen Type: BLOOD SPECIMENOrdering Facility: [facility] Address:[address] [place], [place] [address]Performed By: #### 61243-9 ####[facility] LABCLIA [id number] [place], [place] [address]Degyuptz mean volume (Bld) [Entitic vol]10.1 fLNormal9.0-12.7CPremier Health [facility] on above:Order Comment: Specimen Type: BLOOD SPECIMENOrdering Facility: [facility] Address:[address] [place] [address] Performed By: #### 91231-8 ####[facility] LABCLIA [id number] [place], [place] [address]Fqsdxwhsw (Bld) [#/Vol]303 10*3/ePWkuvor388-935IdrgdvaepJoint Township District Memorial Hospital on above:Order Comment: Specimen Type: BLOOD SPECIMENOrdering Facility: [facility] Address:[address] [place], [place] [address]Performed By: #### 37077-9 ####[facility] LABCLIA [id number] [place], [place] [address]FUS (Bld) [#/Vol]4.31 10*6/uLNormal3.90-5.20[facility] on above:Order Comment: Specimen Type: BLOOD SPECIMENOrdering Facility: [facility] Address:[address] [place], [place] [address]Performed By: #### 36371-8 ####[facility] LABIA [id number] [place], [place] [address]UNC (Bld) [#/Vol]14.41 10*3/uLHigh3.70-11.00[facility] on above: Order Comment: Specimen Type: BLOOD SPECIMENOrdering Facility: [facility] Address:[address] [place], [place] [address]Performed By: #### 37524- 8 ####[facility] LABCLIA [id number] [place], [place] [address]Kiiissgymtbup metabolic 2000 panelon 24-64-9465Rceidtx [Mass/Vol]4.0 g/dL3.9 - 4.9 g/dLAline ClinicALP [Catalytic activity/Vol]79 U/L34 - 123 U/LCleveland ClinicALT [Catalytic activity/Vol]25 U/L7 - 38 U/L Aline ClinicAnion gap [Moles/Vol]14 mmol/L8 - 15 mmol/LCleveland ClinicAST [Catalytic activity/Vol]12 U/LLow13 - 35 U/LCleveland ClinicBilirubin [Mass/Vol] mg/dLLow0.2 - 1.3 mg/dLAline ClinicCalcium [Mass/Vol]9.4 mg/dL8.5 - 10.2 mg/dLAline ClinicChloride [Moles/Vol]105 mmol/L98 - 107 mmol/LCleveland ClinicCO2 [Moles/Vol]21 mmol/LLow22 - 30 mmol/LCleveland ClinicCreatinine [Mass/Vol]0.49 mg/dLLow0.58 - 0.96 mg/dLAline ClinicGFR/1.73 sq M.predicted among non-blacks MDRD (S/P/Bld) [Vol rate/Area]120 mL/min/{1.73_m2}- PINF [facility] CompanyComment on above:Estimated Glomerular Filtration Rate (eGFR) is calculated using the 2020 CKD-EPI creatinine equation. This equation utilizes serum creatinine, sex, and age as parameters. The creatinine assay has traceable calibration to isotope dilution-mass spectrometry. Refer to KDIGO guidelines for clinical interpretation. In patients with unstable renal function, e.g. those with acute kidney injury, the eGFRmay not accurately reflect actual GFR.Glucose [Mass/Vol]155 mg/mNSnjg24 - 99 mg/dLUniversity Hospitals St. John Medical Centerment on above:The [place] Diabetes Association (ADA) provides guidance for cutoff [...] Standards of Medical Care in Diabetes 2016, [place] [employer] Association. Diabetes Care. 2016.39(Suppl 1). Interpretation and review of laboratory resultsAbnormalCleveland ClinicPotassium [Moles/Vol]3.8 mmol/L3.7 - 5.1 mmol/LClevelfirsthealth moore regional hospital ClinicProtein [Mass/Vol]6.6 g/dL 6.3 - 8.0 g/dLAline ClinicSodium [Moles/Vol]140 mmol/L136 - 144 mmol/L [facility] Hospital CompanyUrea nitrogen [Mass/Vol]12 mg/dL7 - 21 mg/dLTrihealth Mccullough-Hyde Memorial Hospital ClinicAlbumin [Mass/Vol]4.0 g/dLNormal3.9-4.9CTrinity Health System Twin City Medical CenterComment on above:Order Comment: Specimen Type: BLOOD SPECIMENOrdering Facility: [facility] Address:[address] [place], [place] [address]Performed By: #### 53262-7 ####[facility] LABCLIA [id number] [place] [address] [place] ALP [Catalytic activity/Vol]79 U/HPxoyhx33-685SkrgsijqxJoint [facility] on above:Order Comment: Specimen Type: BLOOD SPECIMENOrdering Facility: [facility] Address:[address] [place] [address] Performed By: #### 11809-2 ####[facility] LABCLIA [id number] [place] [address] [place] ALT [Catalytic activity/Vol]25 U/LNormal7-38[facility] on above:Order Comment: Specimen Type: BLOOD SPECIMENOrdering Facility: [facility] Address:[address] [place], [place] [address]Performed By: #### 12009-1 ####[facility] LABCLIA [id number] [place] [address] [place] AMERICAAnion gap [Moles/Vol] 14 mmol/LNormal8-15[facility] on above:Order Comment: Specimen Type: BLOOD SPECIMENOrdering Facility: [facility] Address:[address] [place], [place] [address]Performed By: #### 43504-7 ####[facility] LABCLIA [id number] [place] [address] [place] AMERICAAST [Catalytic activity/Vol]12 U/IIzg40-00GiwdmkxfpJoint Township District [facility] on above:Order Comment: Specimen Type: BLOOD SPECIMENOrdering Facility: [facility] Address:[address] [place], [place] [address]Performed By: #### 55125-1 ####[facility] LABCLIA [id number] [place] [address] [place] AMERICABilirubin [Mass/Vol]mg/dLLow0.2-1.3CPremier Health [facility] on above:Order Comment: Specimen Type: BLOOD SPECIMENOrdering Facility: [facility] Address:[address] [place], [place] [address]Performed By: #### 58753-4 ####[facility] LABCLIA [id number] [place] [address] [place] Calcium [Mass/Vol]9.4 mg/dLNormal8.5-10.2CPremier Health Upper [facility] on above:Order Comment: Specimen Type: BLOOD SPECIMENOrdering Facility: [facility] Address:[address] [place], [place] [address]Performed By: #### 97976-9 ####[facility] LABCLIA [id number] [place] [address] [place] AMERICAChloride [Moles/Vol] 105 mmol/CTnmdui46-100CighpclamJoint Township District [facility] Hospital on above:Order Comment: Specimen Type: BLOOD SPECIMENOrdering Facility: [facility] Address:[address] [place], [place] [address]Performed By: #### 71496-0 ####[facility] LABIA [id number] [place] [address] [place] AMERICACO2 [Moles/Vol]21 mmol/SSkj48-31 [facility] on above:Order Comment: Specimen Type: BLOOD SPECIMENOrdering Facility: [facility] Address:[address] [place], [place] [address]Performed By: #### 14615-7 ####[facility] LABIA [id number] [place] [address] [place] AMERICACreatinine [Mass/Vol]0.49 mg/dLLow0.58-0.96[facility] Comment on above:Order Comment: Specimen Type: BLOOD SPECIMENOrdering Facility: [facility] Address:[address] [place] [address] Performed By: #### 71809-0 ####[facility] HOSPITALIA [id number] [place] [address] [place] Creatinine and Glomerular filtration rate.predicted panel (S/P/Bld)120 mL/min/1.73m???Normal>=60[facility] on above:Order Comment: Specimen Type: BLOOD SPECIMENOrdering Facility: [facility] Address:[address] [place], [place] [address]Result Comment: Estimated Glomerular Filtration Rate (eGFR) is [...] not accurately reflect actual GFR.Performed By: #### 45786-9 ####[facility] LABIA [id number] [place] [address] [place] AMERICAGlucose [Mass/Vol]155 mg/dLHigh 74-99[facility] on above:Order Comment: Specimen Type: BLOOD SPECIMENOrdering Facility: [facility] Address:[address] [place], [place] [address]Result Comment: The [place] Diabetes Association (ADA) provides guidance for cutoff [...] Standards of Medical Care in Diabetes 2016, [place] [employer] Association. Diabetes Care. 2016.39(Suppl 1).Performed By: #### 06557-5 ####[facility] LABCLIA [id number] [place] [address] [place] AMERICAPotassium [Moles/Vol]3.8 mmol/L Normal3.7-5.1CPremier Health Upper Valley [facility] on above:Order Comment: Specimen Type: BLOOD SPECIMENOrdering Facility: [facility] Address:[address] [place], [place] [address]Performed By: #### 77959-9 ####[facility] LABCLIA [id number] [place] [address] [place] AMERICAProtein [Mass/Vol]6.6 g/dLNormal6.3-8.0[facility] on above:Order Comment: Specimen Type: BLOOD SPECIMENOrdering Facility: [facility] Address:[address] [place], [place] [address]Performed By: #### 71841-7 ####[facility] LABCLIA [id number] [place] [address] [place] Sodium [Moles/Vol]140 mmol/WQxvwgc655-173Kgckhbtzl Clinic ClevelandComment on above:Order Comment: Specimen Type: BLOOD SPECIMENOrdering Facility: [facility] Address:[address] [place], [place] [address]Performed By: #### 22886-8 ####[facility] LABCLIA [id number] [place] [address] [place] AMERICAUrea nitrogen [Mass/Vol]12 mg/dLNormal7-[facility] on above:Order Comment: Specimen Type: BLOOD SPECIMENOrdering Facility: [facility] Address:[address] [place], [place] [address]Performed By: #### 52360- 8 ####[facility] LABCLIA [id number] [place] [address] [place] AMERICAESR Westergren method (Bld) [Velocity]on 83-17-4385WJU (Bld) [Velocity]21 mm/hHighRegency Hospital Company Interpretation and review of laboratory resultsAbnormalCleveland ProMedica Flower HospitalESR (Bld) [Velocity]21 mm/hHigh0-20[facility] on above:Order Comment: Specimen Type: BLOOD SPECIMENOrdering Facility: [facility] Address:[address] [place], [place] [address]Performed By: #### 4537-7 ####[facility] LABCLIA [id number] [place] [address] [place] AMERICAFERRITIN BLDon 00-35-0606Hezgnsbw [Mass/Vol]20.6 ng/mL14.7 - 205.1 ng/mLCleveland Cannon Falls Hospital And ClinicFOLATE SERUMon 72-23-5563Hctoyt [Mass/Vol]11.1 ng/mL4.7 - PINF ng/mLCleveland [facility] Ferritin SerPl-mCncon 49-89-3706Syvmtciw [Mass/Vol]20.6 ng/mUXqbfgu25.7-205.1 [facility] on above:Order Comment: Specimen Type: BLOOD SPECIMENOrdering Facility: [facility] Address:[address] [place], [place] [address]Performed By: #### 28117-9, 6-4, 8, 2132-01 ####[facility] LABCLIA [id number] [place] [address] [place] AMERICAFolate SerPl-mCncon 05-19-2024 Folate [Mass/Vol]11.1 ng/mLNormal>4.7CTrinity Health System Twin City Medical CenterComment on above: Order Comment: Specimen Type: BLOOD SPECIMENOrdering Facility: [facility] Address:[address] [place], [place] [address]Performed By: #### 90724- 8, 2275-4, 8, 2132-01 ####[facility] LABCLIA [id number] [place] [address] [place] AMERICAIron and Iron binding capacity panelon 84-34-8775Zqaqcsrkzapvjm and review of laboratory resultsAbnormalClevelfirsthealth moore regional hospital ClinicIron [Mass/Vol]47 ug/dL41 - 186 ug/dLMansfield Hospitaln binding capacity [Mass/Vol]420 ug/pUCxac964 - 386 ug/dLRegency Hospital CompanyIron/TIBC [Molar ratio]11.2 %Low15.0 - 57.0 %[facility] Hospital - ColumbusIron [Mass/Vol]47 ug/uBRxeugb65-260TvlwnwbwoTrihealth Mccullough-Hyde Memorial HospitalComment on above:Order Comment: Specimen Type: BLOOD SPECIMENOrdering Facility: [facility] Address:[address] [place], [place] [address]Performed By: #### 10681-0, 2275-4, 2283-12, 2132-01 ####[facility] LABCLIA [id number] [place] [address] [place] Iron binding capacity [Mass/Vol]420 ug/bNPejk531-896GvixpdqwxTrihealth Mccull[facility] Comment on above:Order Comment: Specimen Type: BLOOD SPECIMENOrdering Facility: [facility] Address:[address] [place] [address] Performed By: #### 27154-7, 2275-4, 2283-12, 2132-01 ####[facility] LABCLIA [id number] [address] [address] [place] AMERICAIron/TIBC [Molar ratio]11.2 %Low15.0-57.0[facility] on above:Order Comment: Specimen Type: BLOOD SPECIMENOrdering Facility: [facility] Address:[address] [place], [place] [address]Performed By: #### 68852-4, 2275-4, 2283-12, 2132-01 ####[facility] LABCLIA [id number] [place] [address] [place] [facility] Panel Informationon 45-03-7597Sknogesqihaamp and review of laboratory resultsNormalCAultman Orrville HospitalVITAMIN B12 BLOODon 90-28-9918Izusepjgp (Vitamin B12) [Mass/Vol]632 pg/mL232 - 1245 pg/mL [facility] Hospital CompanyVit B12 SerPl-mCncon 51-57-8280Ykhdkcsyv (Vitamin B12) [Mass/Vol]632 pg/qMIljeas485-8751BeshotqkmPremier Health [facility] Center on above: Order Comment: Specimen Type: BLOOD SPECIMENOrdering Facility: [facility] Address:[address] [place], [place] [address]Performed By: #### 12901- 8, 4, 2283-12, 2132-01 ####[facility] LABCLIA [id number] [place] [address] [place] AMERICACNNURSE on 08-28-0840VSXGVTRMlvcdcGgevtvzbb Clinic ClevelandCNPNon 91-67-2227QAVHBgmykg [facility] CBC WITH AUTO DIFFon 70-32-1452HMAPHOWSS ABSOLUTE AUTO0.1NOMS HealthcareBasophils/100 WBC (Bld)0.4 %0.2 - 2.0 %[facility] Eosinophils/100 WBC (Bld)0.4 %Low0.9 - 7.0 %NOMS HealthcareErythrocyte distribution width (RBC) [Ratio]15.1 %High11.0 - 15.0 %[facility] CenterHematocrit (Bld) [Volume fraction]39.7 %36.0 - 48.0 %[facility] CenterHemoglobin (Bld) [Mass/Vol]13 g/dL12.0 - 16.0 g/dLMid [facility] Mental Health CenterIMMATURE GRANULOCYTES ABS AUTO 0.1HighNOSamaritan HospitalImmature granulocytes/100 WBC (Bld)0.9 %High0.0 - 0.5 % [facility] CenterInterpretation and review of laboratory resultsAbnormalMid [facility] Mental Health CenterLYMPHOCYTES ABSOLUTE AUTO2.1NOMS [facility] Warren HospitalLymphocytes/100 WBC (Bld) 18.4 %Low20.5 - 60.0 %[facility] (RBC) [Entitic mass]30.9 pg26.7 - 34.0 pgUniversity of Missouri Health Care (RBC) [Mass/Vol]32.7 g/dL29.9 - 35.2 g/dLMid [facility] Mental [facility] Center MCV (RBC) [Entitic vol]94.3 fL81.0 - 99.0 fLMid Missouri Mental Health CenterMONOCYTES ABSOLUTE AUTO0.8NOSamaritan HospitalMonocytes/100 WBC (Bld)6.7 %1.7 - 12.0 %[facility] NEUTROPHILS ABSOLUTE AUTO8.3HighMid Missouri Mental Health CenterNeutrophils/100 WBC (Bld)73.2 % 43.0 - 75.0 %[facility] CenterPlatelet mean volume (Bld) [Entitic vol]10.1 fL9.5 - 13.5 fLMid Missouri Mental Health CenterTB EO #0.1NOMS [facility] UGJ007OLOJCedar County Memorial Hospital RBC 4.21NOCedar County Memorial Hospital WBC11.4HighMid [facility] Mental Health CenterCLINISYNCNSaint Joseph Hospital [facility] THYROID STIM HORMONEon 68-72-3660Cupkndznvxlhjn and review of laboratory results AbnormalHCA Midwest Division Qn0.333 m[IU]/LLowNortheast Missouri [facility] Health Network THYROXINE (T4) FREEon 25-66-4095Iutb T4 [Mass/Vol]1.01 ng/dL0.76 - 1.46 ng/dLMid [facility] Center CLINISYNCMid [facility] Mental Health CenterCCF APTTon 59-55-8089cRUD Coag (Bld) [Time]25.6 [facility]fieldR HEMOGLOBIN A1Con 96-40-5182Hlsbbfr [Mass/Vol]134 mg/dLMid [facility] Mental Health CenterHbA1c (Bld) [Mass fraction]6.3 %High4.5 - 6.2 %[facility] HealthcareComment on above:ADA RECOMMENDED LIMIT 4.0 - 6.0 ADA THERAPEUTIC TARGET < 7.0 ACTION SUGGESTED > 7.0 Interpretation and review of laboratory resultsAbnormalNOCT HealthcareCLINISYNSHRINERS HOSPITALS FOR CHILDREN HealthcareNo Panel Informationon 45-83-6938BOQXPEKPSMRCH Healthcare CLINISYNCNorthwest Medical CenterOH PROTHROMBIN TIME INR W/O COUMon 84-01-3438VG Coag (PPP) [Time]9.6 [facility] INR<0.93NOCT HealthcareComment on above: DESIRED INR: 2.0-3.0 CONDITIONS NOT LISTED BELOW 2.5-3.5 FOR PROSTHETIC HEART VALVE REPLACEMENT 2.5-3.5 RECURRENT THROMBOSIS TBH PREG QUANT HCGon 88-05-9065MRB QUANTITATIVE<1mIU/mLNOMS HealthcareComment on above:5-50 0.2-1 WEEK 50-500 1-2 WEEKS 100-5,000 2-3 WEEKS 500-10,000 3-4 WEEKS 1,000-50,000 4-5 WEEKS 10,000-100,000 5-6 WEEKS 15,000-200,000 6-8 WEEKS 10,000-100,000 2-3 MONTHS CNPNon 02-77-4785DGWBSzlqluUlikbrgdl Clinic Jgjvjghko87([place])D3 SerPl-[facility]-Philadelphiaon 145551-oqkjuypofwggnf D3 [Mass/Vol]19.9 ng/mLLow31.0-80.0Tri[facility] M[facility]ull[facility]-Hyde Memorial HospitalComment on above:Order Comment: Specimen Type: BLOOD SPECIMENOrdering Facility: [facility] Address:[address] [place], [place] [address]Result Comment: Classification of 25 [place] Vitamin D status:Deficiency/Insufficiency: < or = 30 ng/ml.Sufficiency/Optimal Levels: 31- 80 ng/mLToxicity: > 100 ng/mL.Test performed by chemiluminescent immunoassay. Performed By: #### 1989-3 ####[facility] LABCLIA [id number] [place] [address] [place] BLOOD TB SCREENon 03-23-2024M. tuberculosis tuberculin stim IFN-g Ql (Bld) NegativeNormalCPremier Health Upper Valley Medical Center on above:Order Comment: Specimen Type: BLOOD SPECIMENOrdering Facility: [facility] Address:[address] [place], [place] [address]Performed By: #### INFTBP ####[facility] LABCLIA [id number] [place] [address] [place] AMERICAMITOGEN MINUS NIL>10.00Normal>=0.50[facility] on above:Order Comment: Specimen Type: BLOOD SPECIMENOrdering Facility: [facility] Address:[address] [place], [place] [address]Performed By: #### INFTBP ####[facility] LABCLIA [id number] [place] [address] [place] TB GAMMA INTERPRETATIONNormalCPremier Health Upper Valley [facility] Center on above:Order Comment: Specimen Type: BLOOD SPECIMENOrdering Facility: [facility] Address:[address] [place], [place] [address]Performed By: #### INFTBP ####[facility] LABCLIA [id number] [place] [address] [place] AMERICATB NIL<0.00Normal<=8.00[facility] on above:Order Comment: Specimen Type: BLOOD SPECIMENOrdering Facility: [facility] Address:[address] [place], [place] [address]Performed By: #### INFTBP ####[facility] LABCLIA [id number] [place] [address] [place] AMERICATB1 AG MINUS NIL0.00 IU/mLNormal<0.35[facility] on above:Order Comment: Specimen Type: BLOOD SPECIMENOrdering Facility: [facility] Address:[address] [place], [place] [address]Performed By: #### INFTBP ####SELECT [facility] LABCLIA [id number] [place] [address] [place] OF AMERICATB2 AG MINUS NIL0.00 IU/mLNormal<0.35[facility] on above:Order Comment: Specimen Type: BLOOD SPECIMENOrdering Facility: [facility] Address:[address] [place], [place] [address]Performed By: #### INFTBP ####[facility] [id number] [place] [address] [place] OF AMERICABacteria Bld Culton 03-23-2024 Bacteria identified Cx Nom (Bld)CULTURE, BLOOD: No growth 5 daysNormalCPremier Health [facility] on above:Performed By: #### 600-7 ####[facility] [id number] [address] STATES OF AMERICACB W Auto Differential panel (Bld)on 64-45-2883Ocmuftnor (Bld) [#/Vol]0.06 10*3/uLNormal <0.11CPremier Health Upper [facility] on above:Order Comment: Specimen Type: BLOOD SPECIMENOrdering Facility: [facility] Address:[address] [place], [place] [address]Performed By: #### 08500-2 ####[facility] LABCLIA [id number] [place] [address] Basophils/100 WBC (Bld)0.5 %NormalJoint Township District Memorial Hospital on above: Order Comment: Specimen Type: BLOOD SPECIMENOrdering Facility: [facility] Address:[address] [place], [place] [address]Performed By: #### 13473- 8 ####[facility] LABIA [id number] [place], [place] [address]Xhreqkisbyze cell count method Nom (Bld)AutoNormal [facility] on above:Order Comment: Specimen Type: BLOOD SPECIMENOrdering Facility: [facility] Address:[address] [place], [place] [address]Performed By: #### 81577-9 ####[facility] LABCLIA [id number] [place], [place] [address]Raahrdyhleg (Bld) [#/Vol]0.13 10*3/uLNormal<0.46[facility] on above: Order Comment: Specimen Type: BLOOD SPECIMENOrdering Facility: [facility] Address:[address] [place], [place] [address]Performed By: #### 28144- 8 ####[facility] LABCLIA [id number] [place], [place] [address]Nimvbvnphwx/100 WBC (Bld)1.0 %NormalJoint Township District Memorial Hospital on above:Order Comment: Specimen Type: BLOOD SPECIMENOrdering Facility: [facility] Address:[address] [place], [place] [address]Performed By: #### 28996-2 ####[facility] LABIA [id number] [place], [place] [address]Clvqapdahht distribution width (RBC) [Ratio]15.2 %High11.5-15.0[facility] on above:Order Comment: Specimen Type: BLOOD SPECIMENOrdering Facility: [facility] Address:[address] [place], [place] [address]Performed By: #### 55323- 8 ####[facility] LABIA [id number] [place], [place] [address]Kbaeodhpoc (Bld) [Volume fraction]39.3 %Canweh79.0-46.0 [facility] on above:Order Comment: Specimen Type: BLOOD SPECIMENOrdering Facility: [facility] Address:[address] [place], [place] [address]Performed By: #### 21390-2 ####[facility] LABIA [id number] [place], [place] [address]Rspipjpetk (Bld) [Mass/Vol]13.1 g/pQDsgind31.5-15.5CPremier Health [facility] on above: Order Comment: Specimen Type: BLOOD SPECIMENOrdering Facility: [facility] Address:[address] [place], [place] [address]Performed By: #### 17047- 8 ####[facility] LABCLIA [id number] [place], [place] [address]Fpqaunre granulocytes (Bld) [#/Vol]0.12 10*3/uLHigh<0.10 [facility] on above:Order Comment: Specimen Type: BLOOD SPECIMENOrdering Facility: [facility] Address:[address] [place], [place] [address]Performed By: #### 87297-9 ####[facility] LABCLIA [id number] [place], [place] [address]Wvkuotll granulocytes/100 WBC (Bld)0.9 %[facility] on above: Order Comment: Specimen Type: BLOOD SPECIMENOrdering Facility: [facility] Address:[address] [place], [place] [address]Performed By: #### 03551- 8 ####[facility] LABCLIA [id number] [place], [place] [address]Hitsooxnsaa (Bld) [#/Vol]2.03 10*3/uLNormal1.00-4.00 [facility] on above:Order Comment: Specimen Type: BLOOD SPECIMENOrdering Facility: [facility] Address:[address] [place], [place] [address]Performed By: #### 12247-5 ####[facility] LABIA [id number] [place], [place] [address]Svvvmlymjec/100 WBC (Bld)15.7 %NormalJoint Township District Memorial Hospital on above:Order Comment: Specimen Type: BLOOD SPECIMENOrdering Facility: [facility] Address:[address] [place], [place] [address]Performed By: #### 69673-1 ####[facility] LABCLIA [id number] [place], [place] [address]HDC (RBC) [Entitic mass]31.3 ecQszpfw92.0-34.0[facility] on above:Order Comment: Specimen Type: BLOOD SPECIMENOrdering Facility: [facility] Address:[address] [place], [place] [address]Performed By: #### 09203-1 ####[facility] LABCLIA [id number] [place], [place] [address]UAOW (RBC) [Mass/Vol]33.3 g/oVDjnskb42.5-36.0[facility] on above: Order Comment: Specimen Type: BLOOD SPECIMENOrdering Facility: [facility] Address:[address] [place], [place] [address]Performed By: #### 50577- 8 ####[facility] LABCLIA [id number] [place], [place] [address]NTQ (RBC) [Entitic vol]93.8 nGYwfpsd32.0-100.0[facility] on above:Order Comment: Specimen Type: BLOOD SPECIMENOrdering Facility: [facility] Address:[address] [place], [place] [address]Performed By: #### 94459-8 ####[facility] LABCLIA [id number] [place], [place] [address]Qkvhhwmeu (Bld) [#/Vol]0.65 10*3/uLNormal<0.87[facility] on above:Order Comment: Specimen Type: BLOOD SPECIMENOrdering Facility: [facility] Address:[address] [place], [place] [address]Performed By: #### 13278- 8 ####[facility] LABIA [id number] [place], [place] [address]Kvbqctezm/100 WBC (Bld)5.0 %NormalJoint Township District Memorial Hospital on above:Order Comment: Specimen Type: BLOOD SPECIMENOrdering Facility: [facility] Address:[address] [place], [place] [address]Performed By: #### 10024-1 ####[facility] LABCLIA [id number] [place], [place] [address]Lqdlppaoyda (Bld) [#/Vol]9.90 10*3/uLHigh1.45-7.50[facility] on above:Order Comment: Specimen Type: BLOOD SPECIMENOrdering Facility: [facility] Address:[address] [place], [place] [address]Performed By: #### 62779-3 ####[facility] LABCLIA [id number] [place], [place] [address]Rmrmcsvcshm/100 WBC (Bld)76.9 %NormalJoint Township District Memorial Hospital on above:Order Comment: Specimen Type: BLOOD SPECIMENOrdering Facility: [facility] Address:[address] [place], [place] [address]Performed By: #### 78233-7 ####[facility] LABCLIA [id number] [place], [place] [address]Edqwsawxx RBC (Bld) [#/Vol] 10*3/uLNormal<0.01[facility] on above:Order Comment: Specimen Type: BLOOD SPECIMENOrdering Facility: [facility] Address:[address] [place], [place] [address]Performed By: #### 31963-5 ####[facility] LABCLIA [id number] [place], [place] [address]Xhqhpnonz RBC/100 WBC (Bld) [Ratio]0.0 /100 WBCNormal [facility] on above:Order Comment: Specimen Type: BLOOD SPECIMENOrdering Facility: [facility] Address:[address] [place], [place] [address]Performed By: #### 20376-2 ####[facility] LABCLIA [id number] [place], [place] [address]Xmtcetci mean volume (Bld) [Entitic vol]10.0 fLNormal9.0-12.7CPremier Health [facility] on above:Order Comment: Specimen Type: BLOOD SPECIMENOrdering Facility: [facility] Address:[address] [place] [address] Performed By: #### 48092-8 ####[facility] LABCLIA [id number] [place], [place] [address]Ujeuumrcx (Bld) [#/Vol]262 10*3/qJEqtpen396-717LatcsinqtJoint [facility] District [facility] on above:Order Comment: Specimen Type: BLOOD SPECIMENOrdering Facility: [facility] Address:[address] [place], [place] [address]Performed By: #### 36300-1 ####[facility] LABCLIA [id number] [place], [place] [address]SJS (Bld) [#/Vol]4.19 10*6/uLNormal3.90-5.20[facility] on above:Order Comment: Specimen Type: BLOOD SPECIMENOrdering Facility: [facility] Address:[address] [place], [place] [address]Performed By: #### 03775-2 ####[facility] LABCLIA [id number] [place], [place] [address]GHN (Bld) [#/Vol]12.89 10*3/uLHigh3.70-11.00[facility] on above: Order Comment: Specimen Type: BLOOD SPECIMENOrdering Facility: [facility] Address:[address] [place], [place] [address]Performed By: #### 32357- 8 ####[facility] LABCLIA [id number] [place], [place] [address]VLZAINRip 86-24-1810UWTIGMROlhnowKntdwppdi Clinic ClevelandCR SerPl-mCncon 76-85-6971RKE [Mass/Vol]0.3 mg/dLNormal<0.9ClevelAultman Hospital on above:Order Comment: Specimen Type: BLOOD SPECIMENOrdering Facility: [facility] Address:[address] [place], [place] [address]Performed By: #### 13415-0, 2276-4, 1987-09 ####[facility] LABCLIA [id number] [place] [address] [place] OF AMERICAComprehensive metabolic 2000 panelon 03-23-2024 Albumin [Mass/Vol]3.9 g/dLNormal3.9-4.9CPremier Health [facility] on above:Order Comment: Specimen Type: BLOOD SPECIMENOrdering Facility: [facility] Address:[address] [place], [place] [address]Performed By: #### 73419-5 ####[facility] LABCLIA [id number] [address] [address] [place] OF AMERICAALP [Catalytic activity/Vol]70 U/LAiegjq94-080ViruvrqzuJoint [facility] District [facility] on above:Order Comment: Specimen Type: BLOOD SPECIMENOrdering Facility: [facility] Address:[address] [place], [place] [address]Performed By: #### 39498- 8 ####[facility] LABCLIA [id number] [place] [address] [place] AMERICAALT [Catalytic activity/Vol]27 U/LNormal7-38[facility] on above:Order Comment: Specimen Type: BLOOD SPECIMENOrdering Facility: [facility] Address:[address] [place], [place] [address]Performed By: #### 81544-6 ####[facility] LABCLIA [id number] [place] [address] [place] AMERICAAnion gap [Moles/Vol]15 mmol/LNormal8-15[facility] on above:Order Comment: Specimen Type: BLOOD SPECIMENOrdering Facility: [facility] Address:[address] [place], [place] [address]Performed By: #### 97479-9 ####[facility] LABCLIA [id number] [place] [address] [place] AST [Catalytic activity/Vol]20 U/UTpsflz64-27JfwngtqyxJoint [facility] on above:Order Comment: Specimen Type: BLOOD SPECIMENOrdering Facility: [facility] Address:[address] [place] [address] Performed By: #### 47789-0 ####[facility] LABCLIA [id number] [place] [address] [place] Bilirubin [Mass/Vol]mg/dLLow0.2-1.3CPremier Health [facility] on above: Order Comment: Specimen Type: BLOOD SPECIMENOrdering Facility: [facility] Address:[address] [place], [place] [address]Performed By: #### 46201- 8 ####[facility] LABCLIA [id number] [place] [address] [place] AMERICACalcium [Mass/Vol]9.2 mg/dLNormal 8.5-10.2CPremier Health [facility] on above:Order Comment: Specimen Type: BLOOD SPECIMENOrdering Facility: [facility] Address:[address] [place], [place] [address]Performed By: #### 15057-3 ####[facility] LABCLIA [id number] [place] [address] [place] AMERICAChloride [Moles/Vol]104 mmol/CDzkhhv69-518MdchkrcqvJoint [facility] District [facility] on above:Order Comment: Specimen Type: BLOOD SPECIMENOrdering Facility: [facility] Address:[address] [place], [place] [address]Performed By: #### 66295-4 ####[facility] LABIA [id number] [place] [address] [place] AMERICACO2 [Moles/Vol]20 mmol/BJpg23-82KpzhnbbsuJoint [facility] District [facility] on above:Order Comment: Specimen Type: BLOOD SPECIMENOrdering Facility: [facility] Address:[address] [place], [place] [address]Performed By: #### 13635-3 ####[facility]ITAL[facility] [id number] [place] [address] [place] AMERICACreatinine [Mass/Vol] 0.61 mg/dLNormal0.58-0.96[facility] on above:Order Comment: Specimen Type: BLOOD SPECIMENOrdering Facility: [facility] Address:[address] [place], [place] [address]Performed By: #### 41247- 8 ####[facility] [id number] [place] [address] [place] AMERICACreatinine and Glomerular filtration rate.predicted panel (S/P/Bld)114 mL/min/1.73m???Normal>=60[facility] on above:Order Comment: Specimen Type: BLOOD SPECIMENOrdering Facility: [facility] Address:[address] [place], [place] [address]Result Comment: Estimated Glomerular Filtration Rate (eGFR) is calculated using the 2020 CKD-EPI creatinine equation. This equation utilizes serum creatinine, sex, and age as parameters. The creatinine assay has traceable calibration to isotope dilution-mass spectrometry. Refer to KDIGO guidelines for clinical interpretation. In patients with unstable renal function, e.g. those with acute kidney injury, the eGFR may not accurately reflect actual GFR.Performed By: #### 68117-4 ####[facility] LABIA [id number] [place] [address] [place] AMERICAGlucose [Mass/Vol]152 mg/tXLxvb27-26DntepalrtJoint Township District [facility] Hospital on above:Order Comment: Specimen Type: BLOOD SPECIMENOrdering Facility: [facility] Address:[address] [place] [id number] Comment: The [place] Diabetes Association (ADA) provides guidance for cutoff [...] Standards of Medical Care in Diabetes 2016, [place] [employer] Association. Diabetes Care. 2016.39(Suppl 1).Performed By: #### 50852-3 ####[facility] LABCLIA [id number] [place] [address] [place] AMERICAPotassium [Moles/Vol]4.3 mmol/LNormal3.7-5.1CTrinity Health System [facility] Comment on above:Order Comment: Specimen Type: BLOOD SPECIMENOrdering Facility: [facility] Address:[address] [place] [address] Performed By: #### 87558-7 ####[facility] LABIA [id number] [place] [address] [place] Protein [Mass/Vol]6.6 g/dLNormal6.3-8.0Tri[facility]Hyde Memorial HospitalComment on above:Order Comment: Specimen Type: BLOOD SPECIMENOrdering Facility: [facility] Address:[address] [place], [place] [address]Performed By: #### 25786-8 ####[facility] LABIA [id number] [place] [address] [place] AMERICASodium [Moles/Vol]139 mmol/AQwpdvl870-510MpjkjhrwyTrihealth Mccullough-Hyde Memorial HospitalComcorewell health green[facility] on above:Order Comment: Specimen Type: BLOOD SPECIMENOrdering Facility: [facility] Address:[address] [place], [place] [address]Performed By: #### 98519-7 ####[facility] [id number] [place] [address] [place] AMERICAUrea nitrogen [Mass/Vol]20 mg/dL Normal7-21[facility] on above:Order Comment: Specimen Type: BLOOD SPECIMENOrdering Facility: [facility] Address:[address] [place], [place] [address]Performed By: #### 28466-6 ####[facility] [id number] [place] [address] [place] AMERICAESR Westergren method (Bld) [Velocity]on 73-30-0601KYC (Bld) [Velocity]27 mm/hHigh0-20[facility] on above:Order Comment: Specimen Type: BLOOD SPECIMENOrdering Facility: [facility] Address:[address] [place], [place] [address]Performed By: #### 4537-7 ####[facility] [id number] [place] [address] [place] AMERICAFerritin SerPl-mCncon 03-23-2024 Ferritin [Mass/Vol]33.3 ng/mQIbkehz90.7-205.1CPremier Health [facility] on above:Order Comment: Specimen Type: BLOOD SPECIMENOrdering Facility: [facility] Address:[address] [place] [address] Performed By: #### 01922-9, 2276-4, 1987- ####[facility] [id number] [place] [address] [place] AMERICAFolate SerPl-mCncon 20-94-9374Mtjyqn [Mass/Vol]13.0 ng/mLNormal>4.7 [facility] on above:Order Comment: Specimen Type: BLOOD SPECIMENOrdering Facility: [facility] Address:[address] [place], [place] [address]Performed By: #### 2132-9, 2284-8 ####[facility] LABCLIA [id number] [place] [address] [place] AMERICAHCG ( test) Ql (U)on 44-86-4940Mpyvgphbwtzalb and review of laboratory resultsNormalNOMS HealthcarePreg Test, UrNegativeNegative NOMS HealthcareNOMS HealthcareIMMUNOGLOBULINS,IGG,IGA,IGMon 66-84-5640WxU [Mass/Vol]171 mg/eMZdmgdh40-434JhnyoqtgfJoint [facility] on above:Order Comment: Specimen Type: BLOOD SPECIMENOrdering Facility: [facility] Address:[address] [place], [place] [address]Performed By: #### SERIMM ####[facility] LABCLIA [id number] [place] [address] [place] AMERICAIgG [Mass/Vol]476 mg/dLLow 700-1600[facility] on above:Order Comment: Specimen Type: BLOOD SPECIMENOrdering Facility: [facility] Address:[address] [place], [place] [address]Performed By: #### SERIMM ####[facility] LABCLIA [id number] [place] [address] [place] AMERICAIgM [Mass/Vol]373 mg/pQSwte36-882ZhstwsbdxJoint [facility] on above:Order Comment: Specimen Type: BLOOD SPECIMENOrdering Facility: [facility] Address:[address] [place], [place] [address]Performed By: #### SERIMM ####[facility] LABCLIA [id number] [place] [address] [place] [employer] binding capacity panelon 70-70-5412Liyx [Mass/Vol]67 ug/dLNormal 41-186[facility] on above:Order Comment: Specimen Type: BLOOD SPECIMENOrdering Facility: [facility] Address:[address] [place], [place] [address]Performed By: #### 69059-3, 2275-08, 1987-09 ####[facility] LABCLIA [id number] [place] [address] [place] AMERICAIron binding capacity [Mass/Vol] 399 ug/fAUnwc827-807IlddmsoeuTrihealth Mccullough-Hyde Memorial HospitalComment on above:Order Comment: Specimen Type: BLOOD SPECIMENOrdering Facility: [facility] Address:[address] [place], [place] [address]Performed By: #### 80192-6, 2275-08, 1987-09 ####[facility] LABCLIA [id number] [place] [address] [place] AMERICAIron/TIBC [Molar ratio]16.8 % Oulzzq50.0-57.0Tri[facility] Mccull[facility]-Hyde Memorial HospitalComment on above:Order Comment: Specimen Type: BLOOD SPECIMENOrdering Facility: [facility] Address:[address] [place], [place] [address]Performed By: #### 57666-5, 2275-08, 1987-09 ####[facility] LABIA [id number] [place] [address] [place] AMERICAUrinalysis macro (dipstick) panel (U)on 06-37-1185Kddugsona, UANegativeNegative - 4(70) +++ mg/dLNOMS Healthcare Blood, [...] - 12 mg/dLNOMS HealthcareNOMS HealthcareVit B12 SerPl-mCncon 12-51-8032Kzmrcduas (Vitamin B12) [Mass/Vol]607 pg/eVHlcybp488-0524Wicipkmcm Clinic ClevelandComment on above: Order Comment: Specimen Type: BLOOD SPECIMENOrdering Facility: [facility] Address:[address] [place], [place] [address]Performed By: #### 2132- 9, 2284-8 ####[facility] LABCLIA [id number] YAYONichole SORIANOManolo [place]FL[place] [address] [place] OF AMERICAOffice Visiton 03-08-2024 Follow-up [id number] Ariadna Haley 1980 F Date Provider Department Center 03/08/2024 Renny-CALOS ARCE [facility] Family History Problem Relation Age of Onset Heart failure Maternal Grandmother Heart attack Maternal Grandfather Family Status - Relation Status Age at Maternal Grandmother Maternal Grandfather Level of Service:[address] [place] OFFICE/OUTPATIENT NEW MODERATE MDM 45 MINUTESNormal [facility] HospitalHCG ( test) IA.rapid Ql (U)Ordered By: Adolfo Kang on 00-03-8454GEB ( test) Ql (U)NegativeCincinnati Children'S Hospital Medical CenterECG 12 [place] 21-09-1153TAL revealed normal sinus rhythm CPAParkview Health Work Phone: CBC AUTO DIFFon 05-45-9647BJTX #0.1 103/ulNormal 0.0-0.1The St. Charles HospitalComment on above:Performed By: #### UAMIC #### [facility] [address] [place] [address] [address] Manda YorkBasophils/100 WBC (Bld)0.6 %Normal0.2-2.0[facility] Comment on above:Performed By: #### UAMIC #### [facility] [address] [place] [address] Dr. Manda Shafer #0.1 103/ulNormal0.0-0.7The St. Charles HospitalComment on above: Performed By: #### UAMIC #### [facility] [address] [place] [address] Dr. Manda Noonanosinophils/100 WBC (Bld)0.6 %Critically low0.9-7.0The [facility] Charles HospitalComment on above:Performed By: #### UAMIC #### [facility] [address] [place] [address] Dr. Manda Noonanrythrocyte distribution width (RBC) [Ratio]14.6 %Rcvwai23.0-15.[address] [facility] HospitalComment on above:Performed By: #### UAMIC #### [facility] [address] [place] [address] Dr. Manda YorkHematocrit (Bld) [Volume fraction]43.4 %Cspfpv19.0-48.0The [facility] Charles HospitalComment on above:Performed By: #### UAMIC #### [facility] [address] [place] [address] Dr. Manda YorkHemoglobin (Bld) [Mass/Vol]13.7 g/gBUylrxv98.0-16.0The [facility]. Charles HospitalComment on above:Performed By: #### UAMIC #### [facility] [address] [place] [address] Dr. Manda Calderon #0.12 10e3/ulCritically high0.00-0.03[facility] Comment on above:Performed By: #### UAMIC #### [facility] [address] [place] [address] Dr. Manda Calderon %0.8 %Critically high0.0-0.5The St. Charles HospitalComment on above:Performed By: #### UAMIC #### [facility] [address] [place] [address] Dr. Manda Laguna #2.6 103/ulNormal1.2-3.8The St. Charles HospitalComment on above:Performed By: #### UAMIC #### [facility] [address] [place] [address] Dr. Manda Bolañosmphocytes/100 WBC (Bld)18.3 %Critically low20.5-60.0The [facility]. Charles HospitalComment on above:Performed By: #### UAMIC #### [facility] [address] [place] [address] Dr. Manda Richards DIFF REQNONormalThe St. Charles HospitalComment on above: Performed By: #### UAMIC #### [facility] [address] [place] [address] Dr. Manda Cardoso (RBC) [Entitic mass]29.0 njJvhkrv31.7-34.0The [facility]. Charles HospitalComment on above:Performed By: #### UAMIC #### [facility] [address] [place] [address] Dr. Manda Cardoso (RBC) [Mass/Vol]31.6 g/tFLfwble57.9-35.2The [facility] Charles HospitalComment on above:Performed By: #### UAMIC #### [facility] [address] [place] [address] Dr. Manda Bradshaw (RBC) [Entitic vol]91.8 sUDlbjbm03.0-99.0The [facility] Charles HospitalComment on above:Performed By: #### UAMIC #### [facility] [address] [place] [address] Dr. Manda Maciel #0.7 103/ulNormal0.3-0.8The [facility] Charles HospitalComment on above:Performed By: #### UAMIC #### [facility] [address] [place] [address] Dr. Manda Coteocytes/100 WBC (Bld)5.1 %Normal1.7-12.0[facility] Comment on above:Performed By: #### UAMIC #### [facility] [address] [place] [address] Dr. Manda Claudio #10.6 103/ulCritically high1.4-6.5[facility] Comment on above:Performed By: #### UAMIC #### [facility] [address] [place] [address] Dr. Manda Longutrophils/100 WBC (Bld)74.6 %Xmxbzg72.0-75.0The [facility] Charles HospitalComment on above:Performed By: #### UAMIC #### [facility] [address] [place] [address] Dr. Manda YorkPlatelet mean volume (Bld) [Entitic vol]9.4 fLCritically low 9.5-13.5The [facility] Charles HospitalComment on above:Performed By: #### UAMIC #### [facility] [address] [place] [address] Dr. Manad YorkPLT307 103/nbZqmdyf452-900Dpf St. Charles HospitalComment on above: Performed By: #### UAMIC #### [facility] [address] [place] [address] Dr. Manda YorkRBC4.73 106/ulNormal4.20-5.40The [facility] Charles HospitalComment on above:Performed By: #### UAMIC #### [facility] [address] [place] [address] Dr. Manda YorkWBC14.2 103/ulCritically high4.0-11.0[facility] HospitalComment on above:Performed By: #### UAMIC #### [facility] [address] [place] [address] Dr. Manda YorkFREE T4on 82-73-5031Flgw T4 [Mass/Vol]1.31 ng/dLNormal0.76-1.[address] [facility] HospitalComment on above:Performed By: #### FT4 #### [facility] [address] [place] [address] Dr. Manda YorkGLYCOHEMOGLOBIN A1Con [id number] RECOMMENDATIONSEE BELOWNormal The St. Charles HospitalComment on above:Result Comment: ADA RECOMMENDED LIMIT 4.0 - 6.0 ADA THERAPEUTIC TARGET < 7.0 ACTION SUGGESTED > 7.0Performed By: #### A1C #### [facility] [address] [place] [address] Dr. Manda YorkGlucose [Mass/Vol]120 mg/dLLakeHealth TriPoint Medical CenterComment on above:Performed By: #### A1C #### [facility] [address] [place] [address] Dr. Manda YorkHbA1c (Bld) [Mass fraction]5.8 %Normal4.5-6.2[facility] HospitalComment on above:Performed By: #### A1C #### [facility] [address] [place] [address] Dr. Manda Howe QUANT HCGon 01-97-8962QCS QUANT<1NormalThe [facility] Comment on above:Performed By: #### FT4 #### [facility] [address] [place] [address] Dr. Mnada Renee RANGESEE BELOWLakeHealth TriPoint Medical CenterComment on above: Result Comment: 5-50 0.2-1 WEEK 50-500 1-2 WEEKS 100-5,000 2-3 WEEKS 500-10,000 3-4 WEEKS 1,000-50,000 4-5 WEEKS 10,000-100,000 5-6 WEEKS 15,000-200,000 6-8 WEEKS 10,000-100,000 2-3 MONTHSPerformed By: #### FT4 #### [facility] [address] [place] [address] Dr. Manda YorkPROTIMEon 03-30-2897ZJR Coag (PPP) [Relative time]{INR}NormalEast Liverpool City HospitalComment on above:Performed By: #### FT4 #### [facility] [address] [place] [address] Dr. Manda Bah GUIDELINESSEE [facility] HospitalComment on above:Result Comment: DESIRED INR: 2.0 - 3.0 CONDITIONS NOT LISTED BELOW 2.5 - 3.5 FOR PROSTHETIC HEART VALVE REPLACEMENT 2.5 - 3.5 RECURRENT THROMBOSIS Performed By: #### FT4 #### [facility] [address] [place] [address] [address] [address] Manda YorkPT Coag (PPP) [Time]9.6 sNormal9.0-11.6[facility] Comment on above:Performed By: #### FT4 #### [facility] [address] [place] [address] Dr. Manda Crews 29-99-3995yBTP Coag (Bld) [Time]28.2 pNtyraf28.3-36.2The [facility] Charles HospitalComment on above:Performed By: #### FT4 #### [facility] [address] [place] [address] Dr. Manda Fowler 77-57-8846NUX5.300 uIU/mLCritically low0.358-3.740The [facility] Charles HospitalComment on above:Performed By: #### FT4 #### [facility] [address] [place] [address] Dr. Manda Post PELVIS TRANSVAGon 89-72-6653NA PELVIS TRANSVAGEXAMINATION: US PELVIS TRANSVAG HISTORY: Excessive [...] Electronically authenticated by: AURORA SHAIKH Date: 2022-09-24 17:50NormalThSelect Medical Specialty [facility] ACOG PANEL 2: 30 to 65on 09-18-2022..NormalThe [place] HospitalComment on above:Result Comment: Performed at: WBPerformed By: #### FT4 #### [facility] [address] [place] [address] Dr. Manda Ceballos Gdln ACOG Aoxygha02-24CtippbMsoUniversity Hospitals [facility] on above:Performed By: #### FT4 #### [facility] [address] [place] [address] Dr. Manda YorkDIAGNOSIS:CommentSCCI Hospital Lima on above: Result Comment: NEGATIVE FOR INTRAEPITHELIAL LESION OR MALIGNANCY. Performed at: WBPerformed By: #### FT4 #### [facility] [address] [place] [address] Dr. Manda Lawson AptimaNegativeNormalNegativeThe [facility] on above:Result Comment: This nucleic acid amplification test detects fourteen high-risk HPV types (16,18,31,33,35,39,45,51,52,56,58,59,66,68) without differentiation. Performed at: =GPerformed By: #### FT4 #### [facility] [address] [place] [address] Dr. Manda YorkHPTara Genotype ReflexCommentSCCI Hospital Lima on above:Result Comment: Criteria not met, HPV Genotype not performed. Performed at: WBPerformed By: #### FT4 #### [facility] [address] [place] [address] Dr. Manda YorkMethodology:CommentSCCI Hospital Lima on above: Result Comment: This liquid based ThinPrep(R) pap test was screened with the use of an image guided system. Performed at: WBPerformed By: #### FT4 #### [facility] [address] [place] [address] Dr. Manda YorkNote:CommentSCCI Hospital Lima on above:Result Comment: The Pap smear is a screening test designed to aid in the detection of premalignant and malignant conditions of the uterine cervix. It is not a diagnostic procedure and should not be used as the sole means of detecting cervical cancer. Both false-positive and false-negative reports do occur. . Performed at: WBPerformed By: #### FT4 #### [facility] [address] [address] [address] Manda YorkPerformed by:CommentSCCI Hospital Lima on above: Result Comment: Charles Peters, Interlocker (ASCP) Performed at: WBPerformed By: #### FT4 #### [facility] [address] [address] [address] Manda YorkSpecimen adequacy:CommentSCCI Hospital Lima on above:Result Comment: Satisfactory for evaluation. Endocervical and/or squamous metaplastic cells (endocervical component) are present. Performed at: Performed By: #### FT4 #### [facility] [address] [address] [address] Manda YorkCytology Cervical or vaginal smear or scraping studyOrdered By: Hazel Torres on 42-37-4756CKZDMid [facility] CenterMG MAMM SCREEN 3D SELENE CADon 52-05-7992SB MAMM SCREEN 3D SELENE CADPatient: ARIADNA HALEY Exam Date: 09/01/2022 : 1980 Gender:F Ordering : DR MANUEL FERRIS . Admission #: [id number] Family : Order #: [id number] CLICK HERE TO VIEW EXAM RADIOLOGY REPORT [...] cancer at age 56. LOCATION: [facility] BREAST COMPOSITION: Scattered areas fibroglandular density. [...] by: Sayda Yusuf M.D. on 09/02/2022 at 12:32[facility] TriPoint Medical CenterMRI KNEE RT WO CONon 19-34-5237CMM KNEE RT WO CONHISTORY: Right knee pain [...] Electronically authenticated by: MANUEL GOMEZ Date: 2022-04-01 08:24[facility] Medical CenterPNEUMOCOCCAL IGG ABS, 23 SEROTYPESon 51-15-6321Kmzilirqmmoq InterpretationSee NoteDayton Osteopathic Hospital. pneumoniae 1 IgG (S) [Mass/Vol]0.27 ug/mLCleveland ClinicS. pneumoniae 12 IgG (S) [Mass/Vol]0.08 ug/mLCleveland ClinicS. pneumoniae 14 IgG (S) [Mass/Vol]0.19 ug/mLCleveland ClinicS. pneumoniae 17 IgG (S) [Mass/Vol]1.72 ug/mLCleveland ClinicS. pneumoniae 19 IgG (S) [Mass/Vol]1.52 ug/mLCleveland ClinicS. pneumoniae 2 IgG (S) [Mass/Vol]0.44 ug/mL [facility]. pneumoniae 20 IgG (S) [Mass/Vol]1.53 ug/mLCleveland ClinicS. pneumoniae 22 IgG (S) [Mass/Vol]0.99 ug/mLCleveland ClinicS. pneumoniae 23 IgG (S) [Mass/Vol]0.14 ug/mLCleveland ClinicS. pneumoniae 3 IgG (S) [Mass/Vol]0.36 ug/mLCleveland ClinicS. pneumoniae 34 IgG (S) [Mass/Vol]5.77 ug/mLCleveland ClinicS. pneumoniae 4 IgG (S) [Mass/Vol]0.06 ug/mLCleveland ClinicS. pneumoniae 43 IgG (S) [Mass/Vol]0.93 ug/mLCleveland ClinicS. pneumoniae 5 IgG (S) [Mass/Vol]0.89 ug/mLCleveland ClinicS. pneumoniae 8 IgG (S) [Mass/Vol]0.58 ug/mL [facility]. pneumoniae 9 IgG (S) [Mass/Vol]0.4 ug/mLCleveland ClinicS. pneumoniae Ghanaian type 15B IgG (S) [Mass/Vol]8.27 ug/mLCleveland ClinicS. pneumoniae Ghanaian type 18C IgG (S) [Mass/Vol]0.39 ug/mLCleveland ClinicS. pneumoniae Ghanaian type 19A IgG (S) [Mass/Vol]17.72 ug/mLCleveland ClinicS. pneumoniae Ghanaian type 33F IgG (S) [Mass/Vol]3.04 ug/mLCleveland ClinicS. pneumoniae Ghanaian type 6B IgG (S) [Mass/Vol]0.82 ug/mLCleveland ClinicS. pneumoniae Ghanaian type 7F IgG (S) [Mass/Vol]0.34 ug/mLCleveland ClinicS. pneumoniae Ghanaian type 9V IgG (S) [Mass/Vol]0.78 ug/mLCleveland ClinicXR KNEE RT 4V or >on 91-45-5124IT KNEE RT 4V or >IMAGES REVIEWED: XR KNEE RT 4V or > COMPARISON: None available. CLINICAL INDICATION: Injury of right knee FINDINGS/IMPRESSION: 1. No evidence of acute osseous abnormality of the right knee. 2. Nonspecific small suprapatellar effusion. 3. Mild anterior infrapatellar knee soft tissue swelling. Electronically authenticated by: KRISTINA GARRETT Date: 2022-03-21 16:[address] [place], [place] [address]DIPHTHER/TETANUS ABon 03-20-2022. diphtheriae IgG Qn (S)0.1 IU/mLCleveland ClinicC. tetani toxoid IgG IA Qn1 IU/mLCleveland ClinicIGA BLDon 52-75-9061ZbC [Mass/Vol]182 mg/dL70 - 400 mg/dLRegency Hospital CompanyIGE BLDon 15-58-6207IoQ Qn12.3 kU/l<114.0 kU/lCleveland ClinicIGGon 82-26-0678NaJ [Mass/Vol]618 mg/tMSgw549 - 1,600 mg/dLRegency Hospital CompanyIGMon 61-34-1055WjO [Mass/Vol]514 mg/kCCgjn86 - 230 mg/dLRegency Hospital CompanyImmunodeficiency panel FC (Bld)on 62-57-4195EM0 cells (Bld) [#/Vol]2841 cells/qNFmkr540 - 2,388 cells/uL [facility] CompanyCD3 cells/100 cells (Bld)81 %60 - 89 %[facility] CompanyCD3+CD4+ (T4 helper) cells (Bld) [#/Vol]1621 cells/uL533 - 1,674 cells/uLRegency Hospital Company CD3+CD4+ (T4 helper) cells/100 cells (Bld)46 %34 - 61 %[facility] CompanyCD3+CD4+ (T4 helper) cells/CD3+CD8+ (T8 suppressor cells) cells (Bld) [# ratio]1.55 %1.10 - 3.25Reg[facility] CompanyCD3+CD8+ (T8 suppressor cells) cells (Bld) [#/Vol]1049 cells/lHElhp871 - 958 cells/uLAline ClinicCD3+CD8+ (T8 suppressor cells) cells/100 cells (Bld)30 %10 - 41 %[facility] CompanyCD3-CD16+CD56+ (Natural killer) cells (Bld) [#/Vol]193 cells/uL102 - 565 cells/uLRegency Hospital CompanyCD3- CD16+CD56+ (Natural killer) cells/100 cells (Bld)5 %5 - 25 %[facility] CompanyCD3- CD19+ cells (Bld) [#/Vol]475 cells/uL75 - 660 cells/uLRegency Hospital CompanyCD3-CD19+ cells/100 cells (Bld)13 %5 - 22 %[facility] CompanyCB W Auto Differential panel (Bld)on 90-99-3930Fzqwxzzhl (Bld) [#/Vol]0.07 10*3/uL<0.11 k/uLRegency Hospital Company Basophils/100 WBC (Bld)0.6 %[facility] CompanyDifferential cell count method Nom (Bld)AutoCleveland ClinicEosinophils (Bld) [#/Vol]0.18 10*3/uL<0.46 k/uL [facility] CompanyEosinophils/100 WBC (Bld)1.6 %[facility] CompanyErythrocyte distribution width (RBC) [Ratio]14.6 %11.5 - 15.0 %[facility] CompanyHematocrit (Bld) [Volume fraction]40.5 %36.0 - 46.0 %[facility] CompanyHemoglobin (Bld) [Mass/Vol]13.0 g/dL11.5 - 15.5 g/dLRegency Hospital CompanyImmature granulocytes (Bld) [#/Vol]0.06 10*3/uL<0.10 k/uLRegency Hospital CompanyImmature granulocytes/100 WBC (Bld) 0.5 %[facility] CompanyLymphocytes (Bld) [#/Vol]2.97 10*3/uL1.00 - 4.00 k/uL [facility] CompanyLymphocytes/100 WBC (Bld)26.9 %[facility] HospitalH (RBC) [Entitic mass]28.4 pg26.0 - 34.0 pgClevelBemidji Medical CenterHC (RBC) [Mass/Vol]32.1 g/dL30.5 - 36.0 g/dLSt. John of God HospitalV (RBC) [Entitic vol]88.4 fL80.0 - 100.0 fLClevelfirsthealth moore regional hospital ClinicMonocytes (Bld) [#/Vol]0.79 10*3/uL<0.87 k/uLRegency Hospital Company Monocytes/100 WBC (Bld)7.2 %[facility] CompanyNeutrophils (Bld) [#/Vol]6.97 10*3/uL1.45 - 7.50 k/uLRegency Hospital CompanyNeutrophils/100 WBC (Bld)63.2 %[facility] CompanyNucleated RBC (Bld) [#/Vol]<0.01 k/uLRegency Hospital CompanyNucleated RBC/100 WBC (Bld) [Ratio]0.0 /100 WBCRegency Hospital CompanyPlatelet mean volume (Bld) [Entitic vol]9.9 fL9.0 - 12.7 fLClevelfirsthealth moore regional hospital ClinicPlatelets (Bld) [#/Vol]314 10*3/uL150 - 400 k/uLRegency Hospital CompanyRBC (Bld) [#/Vol]4.58 10*6/uL3.90 - 5.20 m/uLRegency Hospital CompanyWBC (Bld) [#/Vol]11.04 10*3/uLHigh3.70 - 11.00 k/uLRegency Hospital Company ECHOCARDIO M/2D COMPLETEon [id number] M/2D COMPLETEPatient: ARIADNA HALEY Exam Date: 03/12/2022 : 1980 Gender:F Ordering : DR MANUEL FERRIS . Admission #: [id number] Family : Order #: [id number] CLICK HERE TO VIEW EXAM ECHOCARDIOGRAM REPORT [...] by: Calos Arce M.D. on 03/16/2022 at 16:47[facility] Medical CenterINSULINon 79-42-4792Hzefcid25.8 uIU/mLNormal2.6-24.9The [facility] HospitalComment on above:Performed By: #### CBC #### [facility] [address] [place] [address] Dr. Manda Bruce AUTO DIFFon 17-60-2461KRFY #0.1 103/ulNormal0.0-0.1The [facility] HospitalComment on above:Performed By: #### CBC #### [facility] [address] [place] [address] Dr. Manda Stroudsophils/100 WBC (Bld)0.4 %Normal0.2-2.0[facility] Comment on above:Performed By: #### CBC #### [facility] [address] [address] [address] Manda Shafer #0.2 103/ulNormal0.0-0.7The [facility] Charles HospitalComment on above: Performed By: #### CBC #### [facility] [address] [place] [address] Dr. Manda Noonanosinophils/100 WBC (Bld)1.2 %Normal0.9-7.0[facility] Comment on above:Performed By: #### CBC #### [facility] [address] [place] [address] Dr. Manda Noonanrythrocyte distribution width (RBC) [Ratio]14.6 %Xoreid44.0-15.[address] [facility] HospitalComment on above:Performed By: #### CBC #### [facility] [address] [place] [address] Dr. Manda YorkHematocrit (Bld) [Volume fraction]39.2 %Uttiqp37.0-48.0The [facility] HospitalComment on above:Performed By: #### CBC #### [facility] [address] [place] [address] Dr. Manda YorkHemoglobin (Bld) [Mass/Vol]12.7 g/bUXlilnx63.0-16.0The [facility] HospitalComment on above:Performed By: #### CBC #### [facility] [address] [place] [address] Dr. Manda Calderon #0.06 10e3/ulCritically high0.00-0.03[facility] Comment on above:Performed By: #### CBC #### [facility] [address] [place] [address] Dr. Manda Calderon %0.5 %Normal0.0-0.5The [facility] Charles HospitalComment on above: Performed By: #### CBC #### [facility] [address] [place] [address] Dr. Manda BolañosMPH #3.7 103/ulNormal1.2-3.8The [facility] HospitalComment on above:Performed By: #### CBC #### [facility] [address] [place] [address] Dr. Manda Bolañosmphocytes/100 WBC (Bld)31.0 %Iolzez17.5-60.0The [facility] HospitalComment on above:Performed By: #### CBC #### [facility] [address] [place] [address] Dr. Manda Dela CruzUAL DIFF REQNONormalThe St. Charles HospitalComment on above: Performed By: #### CBC #### [facility] [address] [place] [address] Dr. Manda Cardoso (RBC) [Entitic mass]28.9 uqRvzgit26.7-34.0The [facility] HospitalComment on above:Performed By: #### CBC #### [facility] [address] [place] [address] Dr. Manda Cardoso (RBC) [Mass/Vol]32.4 g/tMPrpmhx86.9-35.2The [facility] HospitalComment on above:Performed By: #### CBC #### [facility] [address] [place] [address] Dr. Manda Cardoso (RBC) [Entitic vol]89.[address]HDuztjb38.0-99.0The [facility] HospitalComment on above:Performed By: #### CBC #### [facility] [address] [place] [address] Dr. Manda Maciel #0.7 103/ulNormal0.3-0.8The [facility] HospitalComment on above:Performed By: #### CBC #### [facility] [address] [place] [address] Dr. Manda Coteocytes/100 WBC (Bld)5.8 %Normal1.7-12.0[facility] Comment on above:Performed By: #### CBC #### [facility] [address] [place] [address] Dr. Manda Claudio #7.3 103/ulCritically high1.4-6.5[facility] Comment on above:Performed By: #### CBC #### [facility] [address] [address] [address] Manda Longutrophils/100 WBC (Bld)61.1 %Xxbgpz78.0-75.0The [facility] HospitalComment on above:Performed By: #### CBC #### [facility] [address] [address] [address] Manda Ferreiralet mean volume (Bld) [Entitic vol]9.7 fLNormal9.5-13.5The [facility] HospitalComment on above:Performed By: #### CBC #### [facility] [address] [place] [address] Dr. Manda YorkPLT297 103/kvQyzfat959-005Rew St. Charles HospitalComment on above: Performed By: #### CBC #### [facility] [address] [place] [address] Dr. Manda YorkRBC4.40 106/ulNormal4.20-5.40The [facility] HospitalComment on above:Performed By: #### CBC #### [facility] [address] [place] [address] Dr. Manda YorkWBC12.0 103/ulCritically high4.0-11.0The [facility] HospitalComment on above:Performed By: #### CBC #### [facility] [address] [place] [address] Dr. Manda Hilton THYROXINE INDEX T7on 93-85-8943WXL4.62Qhpnhg1.30-4.50The [facility] HospitalComment on above:Performed By: #### UAMIC #### [facility] [address] [place] [address] Dr. Manda YorkT3U34.0 %Iwcxho67.0-39.0The [facility] HospitalComment on above: Performed By: #### UAMIC #### [facility] [address] [place] [address] Dr. Manda YorkT4 [Mass/Vol]11.20 ug/dLNormal4.80-13.90[facility] Comment on above:Performed By: #### UAMIC #### [facility] [address] [address] [address] Manda YorkGLYCOHEMOGLOBIN A1Con 64-16-6691JPW RECOMMENDATIONSEE BELOWAdena Pike Medical CenterComment on above:Result Comment: ADA RECOMMENDED LIMIT 4.0 - 6.0 ADA THERAPEUTIC TARGET < 7.0 ACTION SUGGESTED > 7.0Performed By: #### NURIS THYLC #### [facility] [address] [place] [address] Dr. Manda YorkGlucose [Mass/Vol]117 mg/dLNoCleveland Clinic Akron GeneralComment on above:Performed By: #### NURIS THYLC #### [facility] [address] [place] [address] Dr. Manda YorkHbA1c (Bld) [Mass fraction]5.7 %Normal4.5-6.2The [facility] HospitalComment on above:Performed By: #### NURIS THYLC #### [facility] [address] [place] [address] Dr. Manda Garcia 43-19-9217Dnno [Mass/Vol]61.0 ug/nEFgjxtg35.0-170.0The [facility] HospitalComment on above:Performed By: #### CBC #### [facility] [address] [place] [address] Dr. Manda YorkLIPID PROFILEon 45-74-8628YWBH-HDL RATIO NORMSEE BELOWLakeHealth TriPoint Medical CenterComment on above:Result Comment: 3.3 - 4.4 LOW RISK 4.4 - 7.1 AVERAGE RISK 7.1 - 11.0 MODERATE RISK >11.0 HIGH RISKPerformed By: #### UAMIC #### [facility] [address] [place] [address] Dr. Manda YorkCholesterol [Mass/Vol]260 mg/dLCritically high<=200The [facility]. [facility] HospitalComment on above:Performed By: #### UAMIC #### [facility] [address] [place] [address] Dr. Yilan ChangCholesterol in HDL [Mass/Vol]38 mg/dLCritically okr91-72SsrBethesda North Hospital on above:Performed By: #### UAMIC #### [facility] [address] [place] [address] Dr. Manda YokrCholesterol in LDL [Mass/Vol]170.8 mg/dLLakeHealth TriPoint Medical CenterComcorewell health greenville hospital on above:Performed By: #### UAMIC #### [facility] [address] [place] [address] Dr. Manda Carroll.total/Cholesterol in HDL [Mass ratio]6.8 {ratio} NormalBethesda North Hospital on above:Performed By: #### UAMIC #### [facility] [address] [place] [address] Dr. Manda Marte NORMAL> or = 60 mg/dl - LOW CARDIOVASCULAR RISK <40 mg/dl - HIGH CARDIOVASCULAR RISKLakeHealth TriPoint Medical CenterComment on above:Performed By: #### UAMIC #### [facility] [address] [place] [address] Dr. Manda Zamora CALC NORMALSEE BELOWLakeHealth TriPoint Medical CenterComcorewell health greenville hospital on above:Result Comment: <100 mg/dl OPTIMAL 100 - 129 mg/dl NEAR OR ABOVE OPTIMAL 130 - 159 mg/dl BORDERLINE HIGH 160 - 189 mg/dl HIGH >190 mg/dl VERY HIGH Performed By: #### UAMIC #### [facility] [address] [place] [address] Dr. Manda YorkTriglyceride [Mass/Vol]256 mg/dLCritically high<=150[facility] on above:Performed By: #### UAMIC #### [facility] [address] [place] [address] Dr. Manda YorkVLDL CALC51.2 mg/dLLakeHealth TriPoint Medical CenterComment on above: Performed By: #### UAMIC #### [facility] [address] [place] [address] Dr. Manda YorkPROF 14(COMP METB)on 99-18-3250Gsqfsuv [Mass/Vol]3.8 g/dLNormal 3.4-5.0The [facility] HospitalComment on above:Performed By: #### UAMIC #### [facility] [address] [place] [address] Dr. Manda YorkAlbumin/Globulin [Mass ratio]1.0 {ratio}NormalThe St. Charles HospitalComment on above:Performed By: #### UAMIC #### [facility] [address] [address] [address] Manda Toney [Catalytic activity/Vol]66 U/JUhgtng39-769Xkd St. Charles HospitalComment on above:Performed By: #### UAMIC #### [facility] [address] [place] [address] Dr. Manda Person [Catalytic activity/Vol]27 U/DIfxwem08-15Sjm St. Charles HospitalComment on above:Performed By: #### UAMIC #### [facility] [address] [place] [address] Dr. Manda Loo gap [Moles/Vol]11.8 mmol/LNormalThe [facility] Comment on above:Performed By: #### UAMIC #### [facility]. [facility] [address] [place] [address] Dr. Manda YorkAST [Catalytic activity/Vol]9 U/LCritically rdb54-35Aib St. Charles HospitalComment on above:Performed By: #### UAMIC #### [facility] [address] [place] [address] Dr. Manda YorkBilirubin [Mass/Vol]0.2 mg/dLNormal0.2-1.0The [facility] Comment on above:Performed By: #### UAMIC #### [facility] [address] [place] [address] Dr. Manda YorkCalcium [Mass/Vol]9.1 mg/dLNormal8.5-10.1The [facility] Comment on above:Performed By: #### UAMIC #### [facility] [address] [place] [address] Dr. Manda YorkChloride [Moles/Vol]101 mmol/UGemczd41-895Lgx [facility] Comment on above:Performed By: #### UAMIC #### [facility] [address] [address] [address] Manda YorkCO2 [Moles/Vol]26.1 mmol/MRzgeru41.0-32.0The [facility] Comment on above:Performed By: #### UAMIC #### [facility] [address] [address] [address] Manda YorkCreatinine [Mass/Vol]0.80 mg/dLNormal0.55-1.02[facility] [place] [facility] HospitalComment on above:Performed By: #### UAMIC #### [facility] [address] [address] [address] Manda NoonanGFR-AF TONGAN>60Normal>=60The [facility]. Charles HospitalComment on above:Performed By: #### UAMIC #### [facility] [address] [address] [address] Manda NoonanGFR-NON AF TONGAN>60Normal>=60The [facility] Charles HospitalComment on above:Performed By: #### UAMIC #### [facility] [address] [address] [address] Manda YorkGlobulin (S) [Mass/Vol]3.8 g/dLNormalThe St. Charles HospitalComment on above:Performed By: #### UAMIC #### [facility] [address] [address] [address] Manda YorkGlucose [Mass/Vol]93 mg/aPAxunjd99-833Zku [facility] Comment on above:Performed By: #### UAMIC #### [facility] [address] [address] [address] Manda YorkPotassium [Moles/Vol]3.9 mmol/LNormal3.5-5.1The [facility] Comment on above:Performed By: #### UAMIC #### [facility] [address] [address] [address] Manda YorkProtein [Mass/Vol]7.6 g/dLNormal6.4-8.2The [facility] Comment on above:Performed By: #### UAMIC #### [facility] [address] [address] [address] Manda YorkSodium [Moles/Vol]135 mmol/LCritically qdm589-716Bvo St. Charles HospitalComment on above:Performed By: #### UAMIC #### [facility] [address] [address] [address] Manda YorkUrea nitrogen [Mass/Vol]10.0 mg/dLNormal7.0-18.0The [facility] Charles HospitalComment on above:Performed By: #### UAMIC #### [facility] [address] [address] [address] Manda YorkUrea nitrogen/Creatinine [Mass ratio]12.5 mg/mgNormalThe St. Charles HospitalComment on above:Performed By: #### UAMIC #### [facility] [address] [address] [address] Manda Fowler 21-35-6401IQM1.610 uIU/mLNormal0.358-3.740The [facility] HospitalComment on above:Performed By: #### UAMIC #### [facility] [address] [place] [address] Dr. Manda YorkB2 MICROGLOBULIN [facility] 43-60-0312Gxxb-2-Microglobulin [Mass/Vol]1.8 ug/mL0.8 - 2.4 mg/LCleveland ClinicFERRITIN BLDon 27-63-4107Oaqcaeeu [Mass/Vol] 33.2 ng/mL14.7 - 205.1 ng/mLCleveland ClinicFOLATE SERUMon 70-97-6013Otcgha [Mass/Vol]6.6 ng/mL>4.7 ng/mLCleveland ClinicIron and Iron binding capacity panelon 46-46-2556Mcse [Mass/Vol]49 ug/dL41 - 186 ug/dLCleveland ClinicIron binding capacity [Mass/Vol]392 ug/uHZmcu139 - 386 ug/dLCleveland ClinicIron/TIBC [Molar ratio]12.5 %Low15.0 - 57.0 %[facility]endez ClinicCBC W Auto Differential panel (Bld)on 49-78-6838Yahvtllul (Bld) [#/Vol]0.07 10*3/uL<0.11 k/uLRegency Hospital CompanyBasophils/100 WBC (Bld)0.6 %[facility] CompanyDifferential cell count method Nom (Bld)AutoCleveland ClinicEosinophils (Bld) [#/Vol]0.19 10*3/uL<0.46 k/uL [facility] CompanyEosinophils/100 WBC (Bld)1.7 %[facility] CompanyErythrocyte distribution width (RBC) [Ratio]14.7 %11.5 - 15.0 %[facility] CompanyHematocrit (Bld) [Volume fraction]40.0 %36.0 - 46.0 %[facility] CompanyHemoglobin (Bld) [Mass/Vol]13.0 g/dL11.5 - 15.5 g/dLRegency Hospital CompanyImmature granulocytes (Bld) [#/Vol]0.07 10*3/uL<0.10 k/uLRegency Hospital CompanyImmature granulocytes/100 WBC (Bld) 0.6 %[facility] CompanyLymphocytes (Bld) [#/Vol]3.31 10*3/uL1.00 - 4.00 k/uL [facility] CompanyLymphocytes/100 WBC (Bld)30.2 %[facility] HospitalH (RBC) [Entitic mass]28.9 pg26.0 - 34.[address] [facility] Regional Medical CenterHC (RBC) [Mass/Vol]32.5 g/dL30.5 - 36.0 g/dLSt. John of God HospitalV (RBC) [Entitic vol]88.9 fL80.0 - 100.0 fLCleveland ClinicMonocytes (Bld) [#/Vol]0.70 10*3/uL<0.87 k/uLRegency Hospital Company Monocytes/100 WBC (Bld)6.4 %[facility] CompanyNeutrophils (Bld) [#/Vol]6.63 10*3/uL1.45 - 7.50 k/uLCleJoint Township District Memorial HospitalNeutrophils/100 WBC (Bld)60.5 %[facility] CompanyNucleated RBC (Bld) [#/Vol]<0.01 k/uLRegency Hospital CompanyNucleated RBC/100 WBC (Bld) [Ratio]0.0 /100 WBCRegency Hospital CompanyPlatelet mean volume (Bld) [Entitic vol]9.6 fL9.0 - 12.7 fLCleveland ClinicPlatelets (Bld) [#/Vol]355 10*3/uL150 - 400 k/uLRegency Hospital CompanyRBC (Bld) [#/Vol]4.50 10*6/uL3.90 - 5.20 m/uLRegency Hospital CompanyWBC (Bld) [#/Vol]10.97 10*3/uL3.70 - 11.00 k/uLRegency Hospital Company Calcium.ionized [Moles/Vol]on 59-73-5447Dznzlsd.ionized (Bld) [Mass/Vol]1.26 mmol/L1.08 - 1.30 mmol/LCleveland ClinicCalcium.ionized adjusted to pH 7.4 (Bld) [Moles/Vol]1.25 mmol/L1.08 - 1.30 mmol/LCleveland ClinicComprehensive metabolic 2000 panelon 27-91-3361Mnbugnk [Mass/Vol]4.3 g/dL3.9 - 4.9 g/dLRegency Hospital Company ALP [Catalytic activity/Vol]70 U/L34 - 123 U/LCleveland ClinicALT [Catalytic activity/Vol]26 U/L7 - 38 U/LCleveland ClinicAnion gap [Moles/Vol]7 mmol/LLow9 - 18 mmol/LCleveland ClinicAST [Catalytic activity/Vol]12 U/LLow13 - 35 U/L [facility] CompanyBilirubin [Mass/Vol]0.2 mg/dL0.2 - 1.3 mg/dLRegency Hospital Company Calcium [Mass/Vol]9.3 mg/dL8.5 - 10.2 mg/dLRegency Hospital CompanyChloride [Moles/Vol] 103 mmol/L97 - 105 mmol/LCleveland ClinicCO2 [Moles/Vol]28 mmol/L22 - 30 mmol/L [facility] CompanyCreatinine [Mass/Vol]0.69 mg/dL0.58 - 0.96 mg/dLRegency Hospital Company Estimated Glomerular Filtration Ljdl057 mL/min/1.73m>=60 mL/min/1.73mCleveland Cannon Falls Hospital And ClinicGlucose [Mass/Vol]100 mg/bRIyzv65 - 99 mg/dLCleJoint Township District Memorial HospitalPotassium [Moles/Vol]3.9 mmol/L3.7 - 5.1 mmol/LCleveland ClinicProtein [Mass/Vol]7.0 g/dL 6.3 - 8.0 g/dLCletrihealth bethesda butler hospital ClinicSodium [Moles/Vol]138 mmol/L136 - 144 mmol/L [facility] CompanyUrea nitrogen [Mass/Vol]12 mg/dL7 - 21 mg/dLRegency Hospital CompanyLD LACTATE DEHYDROon 40-93-1523ZER [Catalytic activity/Vol]135 U/L135 - 214 U/L [facility] CompanyPHOSPHORUS INORGANICon 24-39-0514Bkmjfplhr [Mass/Vol]3.2 mg/dL 2.7 - 4.8 mg/dLRegency Hospital CompanyURIC ACID BLOODon 66-78-7989Vwulu [Mass/Vol]5.2 mg/dL2.5 - 6.6 mg/dLRegency Hospital CompanyIMMUNOGLOBULINS IGA/IGM/IGG/IGE QUANTITAon 80-39-4706Eotetdodciwoxn A, Qn, Lofje436 mg/yTIojpqr04-236CzuEast [facility] City Hospital Comment on above:Result Comment: Performed at: CBPerformed By: #### LEANN LAWLERC #### [facility] [address] [address] [address] Manda YorkImmunoglobulin E, Total10 IU/mLNormal6-495The [facility] Comment on above:Result Comment: Performed at: BNPerformed By: #### NURIS THYLC #### [facility] [address] [address] [address] Manda YorkImmunoglobulin G, Qn, Krxil925 mg/sZHeszmd499-9134AvjEast Liverpool City HospitalComment on above:Result Comment: Performed at: CBPerformed By: #### SLEAl THYLC #### [facility] [address] [address] [address] Manda YorkImmunoglobulin M, Qn, Azlbs325 mg/dLCritically boif52-697Gaw St. [facility] HospitalComment on above:Result Comment: Performed at: CBPerformed By: #### NURIS THYLC #### [facility] [address] [place] [address] Dr. Manda YorkANA by IFAon 28-25-0444Tsxnqboekpj Antibodies, IFANegativeNormal The St. [facility] HospitalComment on above:Result Comment: Negative <1:80 Borderline 1:80 Positive >1:80 ICAP nomenclature: AC-0 For more information about Hep-2 cell patterns use ANApatterns.org, the official website for the International Consensus on Antinuclear Antibody (CHRISTIAN) Patterns (ICAP).Performed By: #### LEANN LAWLERC #### [facility] [address] [place] [address] Dr. Manda YorkTHYROID ANTIBODIESon 06-35-4369Ungqicnoujzpo Antibody<1.0Normal 0.0-0.9The St. [facility] HospitalComment on above:Result Comment: Thyroglobulin Antibody measured by TV TubeX MethodologyPerformed By: #### FT4 #### [facility] [address] [place] [address] Dr. Manda YorkThyroid Peroxidase (TPO) Ab<6Nzvbgh2-39KqcEast [place] City Hospital Comment on above:Performed By: #### FT4 #### [facility] [address] [place] [address] Dr. Manda YorkPROTEIN ELECTROPHERESISon 70-32-2553Qsrhbmb [Mass/Vol]3.2 g/dL Normal2.9-4.4The St. [facility] HospitalComment on above:Performed By: #### FT4 #### [facility] [address] [place] [address] Dr. Manda YorkAlbumin/Globulin [Mass ratio]1.0 {ratio}Normal0.7-1.7The [facility]. [facility] HospitalComment on above:Performed By: #### FT4 #### [facility] [address] [place] [address] Dr. Manda YorkSftvqPwxou-6-Qfankrxb4.2 g/dLNormal0.0-0.4The [facility] HospitalComment on above:Performed By: #### FT4 #### [facility] [address] [place] [address] Dr. Manda YorkUhzauFebcx-4-Epongpui7.9 g/dLNormal0.4-1.0The [facility] HospitalComment on above:Performed By: #### FT4 #### [facility] [address] [place] [address] Dr. Manda YorkBeta Globulin1.2 g/dLNormal0.7-1.3The [facility] HospitalComment on above:Performed By: #### FT4 #### [facility] [address] [place] [address] Dr. Manda YorkGamma Globulin0.9 g/dLNormal0.4-1.8The [facility] HospitalComment on above:Performed By: #### FT4 #### [facility] [address] [place] [address] Dr. Manda YorkGlobulin (S) [Mass/Vol]3.2 g/dLNormal2.2-3.9The [facility] Comment on above:Performed By: #### FT4 #### [facility] [address] [place] [address] Dr. Manda YorkM-SpikeNot ObservedNormalNot ObservedEast Liverpool City HospitalComment on above:Performed By: #### FT4 #### [facility] [address] [place] [address] Dr. [address] [facility] HospitalComment on above:Performed By: #### FT4 #### [facility] [address] [place] [address] Dr. Manda Oswald note:CommentNormalThe St. Charles HospitalComment on above: Result Comment: Protein electrophoresis scan will follow via computer, mail, or field service consultant delivery.Performed By: #### FT4 #### [facility] [address] [place] [address] Dr. Manda YorkProtein [Mass/Vol]6.4 g/dLNormal6.0-8.5ThACMC Healthcare System Comment on above:Performed By: #### FT4 #### [facility] [address] [place] [address] Dr. Manda Echavarria PROFILE Aon 20-82-4673Aadw-DNA (DS) Ab Qn9 IU/mLNormal0-9[facility] [place] City HospitalComment on above:Result Comment: Negative <5 Equivocal 5 - 9 Positive >9Performed By: #### SLEA, THYLC #### [facility] [address] [place] [address] Dr. Manda YorkAntichromatin Antibodies<0.9Ndlerb1.0-0.9The [facility] Comment on above:Performed By: #### SLEA, THYLC #### [facility] [address] [place] [address] Dr. Manda Sanches Latex Turbid.<10.0Normal<14.0[facility] [place] [facility] HospitalComment on above:Performed By: #### SLEA, THYLC #### [facility] [address] [place] [address] Dr. Manda Chowdary Antibodies<0.6Huskgs1.0-0.9The [facility] HospitalComment on above:Performed By: #### SLEA, THYLC #### [facility] [address] [place] [address] Dr. Manda Harmon Anti-SS-A<0.2Trnmxz1.0-0.9The [facility] HospitalComment on above:Performed By: #### SLEA, THYLC #### [facility] [address] [place] [address] Dr. Manda Harmon Anti-SS-B<0.8Pwfmri8.0-0.9The [facility] HospitalComment on above:Performed By: #### SLEA, THYLC #### [facility] [address] [place] [address] Dr. Manda Lloyd Antibodies<0.7Ptojmo2.0-0.9The [facility] HospitalComment on above:Performed By: #### SLEA, THYLC #### [facility] [address] [place] [address] Dr. Manda YorkANTISTREPTOLYSIN O AB (ASO)on 15-77-8785Hxcakiahjidgfcoi O Ab49.6 IU/mLNormal0.0-200.0The [facility] HospitalComment on above:Performed By: #### ASOAB #### [facility] [address] [place] [address] Dr. Manda WhalenROALBUMIN URINEon 45-96-2661Rbmyauu, Urine<3.0NormalNot Estab. The St. [facility] HospitalComment on above:Result Comment: Verified by repeat analysisPerformed By: #### CBC #### [facility] [address] [place] [address] Dr. Manda Armando4, T3U, FTI LABCORPon 85-31-8623Nkjw Thyroxine Index2.6Normal 1.2-4.9The [facility] HospitalComment on above:Performed By: #### LUIGI LAWLER #### [facility] [address] [place] [address] Dr. Manda YorkT3 Aybfoo68 %Fkchrw73-48Enf St. Charles HospitalComment on above: Performed By: #### NURIS THYLC #### [facility] [address] [place] [address] Dr. Manda Moses [Mass/Vol]9.9 ug/dLNormal4.5-12.0The [facility] HospitalComment on above:Performed By: #### LEANN LAWLERC #### [facility] [address] [place] [address] Dr. Manda Bruce AUTO DIFFon 71-44-4660CJTN #0.1 103/ulNormal0.0-0.1The [facility] HospitalComment on above:Performed By: #### UAMIC #### [facility] [address] [place] [address] Dr. Manda YorkBasophils/100 WBC (Bld)0.6 %Normal0.2-2.0The [facility] Comment on above:Performed By: #### UAMIC #### [facility] [address] [place] [address] Dr. Holman ChangEO #0.3 103/ulNormal0.0-0.7The [facility] HospitalComment on above: Performed By: #### UAMIC #### [facility] [address] [place] [address] Dr. Manda Noonanosinophils/100 WBC (Bld)3.4 %Normal0.9-7.0The [facility] Comment on above:Performed By: #### UAMIC #### [facility] [address] [place] [address] Dr. Manda Noonanrythrocyte distribution width (RBC) [Ratio]14.6 %Irkyqw31.0-15.[address] [facility] HospitalComment on above:Performed By: #### UAMIC #### [facility] [address] [place] [address] Dr. Manda YorkHematocrit (Bld) [Volume fraction]39.1 %Bunmuu98.0-48.0The [facility] HospitalComment on above:Performed By: #### UAMIC #### [facility] [address] [place] [address] Dr. Manda YorkHemoglobin (Bld) [Mass/Vol]12.4 g/hGVqkqck44.0-16.0The [facility] HospitalComment on above:Performed By: #### UAMIC #### [facility] [address] [place] [address] Dr. Manda Calderon #0.03 10e3/ulNormal0.00-0.03The [facility] HospitalComment on above:Performed By: #### UAMIC #### [facility] [address] [place] [address] Dr. Manda Calderon %0.3 %Normal0.0-0.5The [facility] HospitalComment on above: Performed By: #### UAMIC #### [facility] [address] [place] [address] Dr. Manda KasperH #3.6 103/ulNormal1.2-3.8The [facility]. [facility] HospitalComment on above:Performed By: #### UAMIC #### [facility] [address] [place] [address] Dr. Manda Bolañosmphocytes/100 WBC (Bld)39.9 %Knxjyn45.5-60.0The [facility] HospitalComment on above:Performed By: #### UAMIC #### [facility] [address] [place] [address] Dr. Manda Richards DIFF REQNONormalThe St. Charles HospitalComment on above: Performed By: #### UAMIC #### [facility] [address] [place] [address] Dr. Manda Cardoso (RBC) [Entitic mass]28.4 qwLniefv80.7-34.0The [facility] HospitalComment on above:Performed By: #### UAMIC #### [facility] [address] [place] [address] Dr. Manda Cardoso (RBC) [Mass/Vol]31.7 g/uCNojzrt17.9-35.2The [facility] HospitalComment on above:Performed By: #### UAMIC #### [facility] [address] [place] [address] Dr. Manda Cardoso (RBC) [Entitic vol]89.7 aZFsgudg40.0-99.0The [facility] HospitalComment on above:Performed By: #### UAMIC #### [facility] [address] [place] [address] Dr. Manda Maciel #0.7 103/ulNormal0.3-0.8The [facility] HospitalComment on above:Performed By: #### UAMIC #### [facility] [address] [place] [address] Dr. Manda Coteocytes/100 WBC (Bld)7.3 %Normal1.7-12.0The [facility] Comment on above:Performed By: #### UAMIC #### [facility] [address] [place] [address] Dr. Manda Claudio #4.4 103/ulNormal1.4-6.5The [facility] HospitalComment on above:Performed By: #### UAMIC #### [facility] [address] [place] [address] Dr. Manda YorkNeutrophils/100 WBC (Bld)48.5 %Gequnl27.0-75.0The City Hospitalment on above:Performed By: #### UAMIC #### [facility] [address] [place] [address] Dr. Manda YorkPlatelet mean volume (Bld) [Entitic vol]10.1 fLNormal9.5-13.5The [facility] HospitalComment on above:Performed By: #### UAMIC #### [facility] [address] [place] [address] Dr. Manda YorkPLT310 103/tpLcabtx810-528[facility] on above: Performed By: #### UAMIC #### [facility] [address] [place] [address] Dr. Manda YorkRBC4.36 106/ulNormal4.20-5.40The [facility] HospitalComment on above:Performed By: #### UAMIC #### [facility] [address] [place] [address] Dr. Manda YorkWBC9.0 103/ulNormal4.0-11.0The [facility] on above: Performed By: #### UAMIC #### [facility] [address] [place] [address] Dr. Manda YorkCROwen 79-68-2385PKB [Mass/Vol]mg/LNormal<=1.0The [facility] on above:Performed By: #### UAMIC #### [facility] [address] [place] [address] Dr. Manda YorkCULTKEILA URINEon 63-27-9955BMIHGNR URINECulture Observations: LIGHT GROWTH OF MIXED GENITAL AMBER. NO POTENTIAL PATHOGENS SEEN.NormalThe St. Charles HospitalComment on above:Performed By: #### CBC #### [facility] [address] [place] [address] Dr. Manda YorkPROF 14(COMP METB)on 80-95-4238Dcvhqrn [Mass/Vol]3.5 g/dLNormal 3.4-5.0The [facility] HospitalComment on above:Performed By: #### UAMIC #### [facility] [address] [place] [address] Dr. Manda YorkAlbumin/Globulin [Mass ratio]1.0 {ratio}NormalThe St. Charles HospitalComment on above:Performed By: #### UAMIC #### [facility] [address] [place] [address] Dr. Manda Toney [Catalytic activity/Vol]71 U/ZStalhg51-154Uun St. [facility] HospitalComment on above:Performed By: #### UAMIC #### [facility] [address] [place] [address] Dr. Manda Person [Catalytic activity/Vol]46 U/IVrqxii83-32Aas St. [facility] HospitalComment on above:Performed By: #### UAMIC #### [facility] [address] [place] [address] Dr. Manda Loo gap [Moles/Vol]11.6 mmol/LNormalThe [facility] Comment on above:Performed By: #### UAMIC #### [facility] [address] [place] [address] Dr. Manda Pillai [Catalytic activity/Vol]15 U/OCgoqfy65-03Xil St. Charles HospitalComment on above:Performed By: #### UAMIC #### [facility] [address] [place] [address] Dr. Manda YorkBilirubin [Mass/Vol]0.2 mg/dLNormal0.2-1.0The [facility] Comment on above:Performed By: #### UAMIC #### [facility] [address] [place] [address] Dr. Manda YorkCalcium [Mass/Vol]8.7 mg/dLNormal8.5-10.1The [facility] Comment on above:Performed By: #### UAMIC #### [facility] [address] [place] [address] Dr. Manda YorkChloride [Moles/Vol]104 mmol/XKrwnno20-996[facility] Comment on above:Performed By: #### UAMIC #### [facility] [address] [address] [address] Manda YorkCO2 [Moles/Vol]25.1 mmol/THodeqz45.0-32.0[facility] Comment on above:Performed By: #### UAMIC #### [facility] [address] [address] [address] Manda YorkCreatinine [Mass/Vol]0.80 mg/dLNormal0.55-1.02[facility] HospitalComment on above:Performed By: #### UAMIC #### [facility] [address] [place] [address] Dr. Manda NoonanGFR-AF TONGAN>60Normal>=60The [facility] HospitalComment on above:Performed By: #### UAMIC #### [facility] [address] [address] [address] Manda Sánchez-NON AF TONGAN>60Normal>=60[facility] HospitalComment on above:Performed By: #### UAMIC #### [facility] [address] [address] [address] Manda YorkGlobulin (S) [Mass/Vol]3.6 g/dLNormalThe St. [facility] HospitalComment on above:Performed By: #### UAMIC #### [facility] [address] [address] [address] Manda YorkGlucose [Mass/Vol]92 mg/uJQjsrds24-188ZgeEast [facility] City Hospital Comment on above:Performed By: #### UAMIC #### [facility] [address] [address] [address] Manda YorkPotassium [Moles/Vol]3.7 mmol/LNormal3.5-5.1The [facility] Comment on above:Performed By: #### UAMIC #### [facility] [address] [address] [address] Manda YorkProtein [Mass/Vol]7.1 g/dLNormal6.4-8.2The [facility] Comment on above:Performed By: #### UAMIC #### [facility] [address] [address] [address] Manda Raphaeldium [Moles/Vol]137 mmol/ITgltvs934-481Kik [facility] Comment on above:Performed By: #### UAMIC #### [facility] [address] [place] [address] Dr. Manda Kiser nitrogen [Mass/Vol]17.0 mg/dLNormal7.0-18.0The [facility] HospitalComment on above:Performed By: #### UAMIC #### [facility] [address] [place] [address] Dr. Manda Kiser nitrogen/Creatinine [Mass ratio]21.2 mg/mgNoalThACMC Healthcare SystemComment on above:Performed By: #### UAMIC #### [facility] [address] [address] [address] Manda Mckeon RATE WESTERGRENon 72-49-8185FCW RATE40 mm/hrCritically high <=20The [facility]. [facility] HospitalComment on above:Performed By: #### SEDR #### [facility] [address] [place] [address] Dr. Manda Fowler 19-04-0455CGB8.155 uIU/mLNormal0.358-3.740[facility] HospitalComment on above:Performed By: #### UAMIC #### [facility] [address] [place] [address] Dr. Manda Lynch RANDOM W/MICROSCOPICon 75-67-4199URFEMBDXEZIF SEENNormalNONE SEENEast Liverpool City HospitalComment on above:Performed By: #### UAMIC #### [facility] [address] [place] [address] Dr. Manda Clarkirubin Ql (U)NegativeNormalNEGATIVEThe [facility] Comment on above:Performed By: #### UAMIC #### [facility] [address] [place] [address] Dr. Manda YorkCASTNONE SEENNormalNONE SEENThe [facility] HospitalComment on above:Performed By: #### UAMIC #### [facility] [address] [address] [address] Manda Beaverarity (U)CLEARNormalCLEAREast Liverpool City HospitalComment on above: Performed By: #### UAMIC #### [facility] [address] [address] [address] Manda Brownelor (U)LT. YELLOWNormalYELLOWEast Liverpool City HospitalComment on above:Performed By: #### UAMIC #### [facility] [address] [address] [address] Manda YorkCrystals LM Nom (Urine sed)NONE SEENNormalNONE SEENEast [place] City HospitalComment on above:Performed By: #### UAMIC #### [facility] [address] [place] [address] Dr. Holman ChangEpithelial cells LM Ql (Urine sed)RARENormalNONE SEEN /RAREEast [place] City HospitalComment on above:Performed By: #### UAMIC #### [facility] [address] [place] [address] Dr. Manda YorkGlucose Ql (U)NegativeNormalNEGATIVEChildren's Hospital of Columbusment on above:Performed By: #### UAMIC #### [facility] [address] [place] [address] Dr. Manda YorkHemoglobin Ql (U)NegativeNormalNEGATIVEKettering Health Springfield on above:Performed By: #### UAMIC #### [facility] [address] [place] [address] Dr. Manda YorkKetones Ql (U)NegativeNormalNEGATIVEEast [place] HospitalComment on above:Performed By: #### UAMIC #### [facility] [address] [place] [address] Dr. Manda YorkLEUKOCYTESNegativeNormalNEGATIVEEast [place] HospitalComcorewell health [facility] hospital on above:Performed By: #### UAMIC #### [facility] [address] [place] [address] Dr. Manda Gomez SEENNormalNONE SEENThe St. Charles HospitalComment on above:Performed By: #### UAMIC #### [facility] [address] [place] [address] Dr. Manda Kirkland Ql (U)NegativeNormalNEGATIVEThe St. Charles HospitalComment on above:Performed By: #### UAMIC #### [facility] [address] [address] [address] Manda YorkpH (U)6.0 [pH]Normal5-9The [facility]. Charles HospitalComment on above: Performed By: #### UAMIC #### [facility] [address] [place] [address] Dr. Manda YorkRBCNONE SEENAbnormal0-2The St. Charles HospitalComment on above: Performed By: #### UAMIC #### [facility] [address] [place] [address] Dr. Manda YorkSPEC GRAVITY1.076Nnvtlv0.005-<=1.025The St. Charles HospitalComment on above:Performed By: #### UAMIC #### [facility] [address] [place] [address] Dr. Manda Lynch PROTEINNegativeNormalNEGATIVE/ TRACEThe [facility] Comment on above:Performed By: #### UAMIC #### [facility] [address] [place] [address] Dr. Manda Thompsonbilbelkisgen Qn (U)0.2 {Carmella'U}/dLNormal0.2 - 1.0The [facility] Charles HospitalComment on above:Performed By: #### UAMIC #### [facility] [address] [address] [address] Manda YorkWBCJAG SEENNormalNONE SEENThe St. Charles HospitalComment on above: Performed By: #### UAMIC #### [facility] [address] [place] [address] Dr. Manda YorkURIC ACID SERUMon [id number] [Mass/Vol]4.2 mg/dLNormal 2.6-6.0The [place] HospitalComment on above:Performed By: #### UAMIC #### [facility] [address] [place] [address] Dr. Manda YorkVITAMIN D 25 OHon 45-00-3810FDY D 25-OH22.4 ng/mLNormalEast [place] City HospitalComment on above:Performed By: #### FT4 #### [facility] [address] [place] [address] Dr. Manda Bee D RANGESSEE BELOWLakeHealth TriPoint Medical CenterComment on above: Result Comment: <20 ng/mL Vit D deficient 20 - <30 ng/mL Vit D insufficient 30 - 100 ng/mL Vit D sufficient >100 ng/mL Potential ToxicityPerformed By: #### FT4 #### [facility] [address] [place] [address] Dr. Manda Gomez FRA. QNT 24 HR URINEon [id number], U,62dvRuadazuAgflgg91-574Epa Bellevue HospitalComment on above:Result Comment: No total volume submitted. Unable to calculate 24 hour result.Performed By: #### NURIS THYLC #### [facility] [address] [place] [address] Dr. Manda Oronaphrine, Ur57 ug/LNormalUndKettering Memorial Hospital Comment on above:Performed By: #### NURIS THYLC #### [facility] [address] [place] [address] Dr. Manda Barcenasrmetanephr.,U,68gWtakqzaExgtwo714-018C[facility] Comment on above:Result Comment: No total volume submitted. Unable to calculate 24 hour result.Performed By: #### NURIS THYLC #### [facility] [address] [place] [address] Dr. Manda Barcenasrmetanephrine, Ur116 ug/LNormalUndKettering Memorial Hospital Comment on above:Performed By: #### NURIS THYLC #### [facility] [address] [place] [address] Dr. Yilan ChangMETANEPHRINES PLASMA FREEon [id number], Pl22.1 pg/mL Normal0.0-88.0The St. Charles HospitalComment on above:Performed By: #### LEANN LAWLERC #### [facility] [address] [place] [address] Dr. Manda YorkNormetanephrine, Pl50.7 pg/mLNormal0.0-218.9[facility] [place] [facility] Comment on above:Performed By: #### NURIS THYLC #### [facility] [address] [place] [address] Dr. Manda YorkCMV PLASMA PCRon [id number] Quant DNA PCR (Plasma)Negative NormalNegativeEast Liverpool City HospitalComment on above:Result Comment: No CMV DNA detected. The quantitative range of this assay is 200 to 1 million IU/mL.Performed By: #### LEANN LAWLERC #### [facility] [address] [place] [address] Dr. Manda Yorklog10 CMV Qn DNA PlUPTCALNoCleveland Clinic Akron GeneralComment on above:Result Comment: Unable to calculate result since non-numeric result obtained for component test.Performed By: #### NURIS THYLC #### [facility] [address] [place] [address] Dr. Manda YorkCMV AB IGMon [id number] (CMV) Ab, IgM43.2 AU/mL Critically high0.0-29.9The [facility]. Charles HospitalComment on above:Result Comment: Negative <30.0 Equivocal 30.0 - 34.9 Positive >34.9 A positive result is generally indicative of acute infection, reactivation or persistent IgM production.Performed By: #### NURIS THYLC #### [facility] [address] [place] [address] Dr. Manda NavarreteV AB, IGGon [id number] (CMV) Ab, IgG>10.00 Critically high0.00-0.59[facility] on above:Result Comment: Negative <0.60 Equivocal 0.60 - 0.69 Positive >0.69Performed By: #### CMVIGG #### [facility] [address] [place] [address] Dr. Manda Bruce AUTO DIFFon [id number] #0.1 103/ulNormal0.0-0.1The [facility]. Charles HospitalComment on above:Performed By: #### CBC #### [facility] [address] [place] [address] Dr. Manda YorkBasophils/100 WBC (Bld)0.6 %Normal0.2-2.0[facility] Comment on above:Performed By: #### CBC #### [facility] [address] [place] [address] Dr. Manda Shafer #0.2 103/ulNormal0.0-0.7The [facility] Charles HospitalComment on above: Performed By: #### CBC #### [facility] [address] [place] [address] Dr. Manda Noonanosinophils/100 WBC (Bld)2.3 %Normal0.9-7.0The [facility] Comment on above:Performed By: #### CBC #### [facility] [address] [place] [address] Dr. Manda Noonanrythrocyte distribution width (RBC) [Ratio]14.2 %Ydgakh35.0-15.[address] [facility] HospitalComment on above:Performed By: #### CBC #### [facility] [address] [place] [address] Dr. Manda YorkHematocrit (Bld) [Volume fraction]40.2 %Uwjomp15.0-48.0The [facility] HospitalComment on above:Performed By: #### CBC #### [facility] [address] [place] [address] Dr. Manda YorkHemoglobin (Bld) [Mass/Vol]12.8 g/bSRpyiks13.0-16.0The [facility] HospitalComment on above:Performed By: #### CBC #### [facility] [address] [place] [address] Dr. Manda Calderon #0.02 10e3/ulNormal0.00-0.03The [facility] HospitalComment on above:Performed By: #### CBC #### [facility] [address] [place] [address] Dr. Manda Calderon %0.2 %Normal0.0-0.5The [facility] Charles HospitalComment on above: Performed By: #### CBC #### [facility] [address] [place] [address] Dr. Manda Laguna #2.5 103/ulNormal1.2-3.8The [facility] HospitalComment on above:Performed By: #### CBC #### [facility] [address] [place] [address] Dr. Manda Kasperhocytes/100 WBC (Bld)24.9 %Zqhpli77.5-60.0The [facility] HospitalComment on above:Performed By: #### CBC #### [facility] [address] [place] [address] Dr. Manda Dela CruzGOOD [facility]AR[facility] DIFF REQNONormalThe St. Charles HospitalComment on above: Performed By: #### CBC #### [facility] [address] [place] [address] Dr. Manda Gil (RBC) [Entitic mass]27.9 wwIxgowr58.7-34.0The [facility] HospitalComment on above:Performed By: #### CBC #### [facility] [address] [place] [address] Dr. Manda Cardoso (RBC) [Mass/Vol]31.8 g/lUAqkshh68.9-35.2The [facility] HospitalComment on above:Performed By: #### CBC #### [facility] [address] [place] [address] Dr. Manda Cardoso (RBC) [Entitic vol]87.6 kAWdlvzs66.0-99.0The [facility] HospitalComment on above:Performed By: #### CBC #### [facility] [address] [place] [address] Dr. Manda Maciel #0.6 103/ulNormal0.3-0.8The [facility] Charles HospitalComment on above:Performed By: #### CBC #### [facility] [address] [place] [address] Dr. Manda Coteocytes/100 WBC (Bld)6.3 %Normal1.7-12.0The [facility] Comment on above:Performed By: #### CBC #### [facility] [address] [place] [address] Dr. Manda Claudio #6.5 103/ulNormal1.4-6.5The [facility] HospitalComment on above:Performed By: #### CBC #### [facility] [address] [place] [address] Dr. Manda Longutrophils/100 WBC (Bld)65.7 %Zswcgj53.0-75.0The [facility] HospitalComment on above:Performed By: #### CBC #### [facility] [address] [place] [address] Dr. Manda Granados mean volume (Bld) [Entitic vol]10.1 fLNormal9.5-13.5The [facility] HospitalComment on above:Performed By: #### CBC #### [facility] [address] [place] [address] Dr. Manda YorkPLT304 103/exHdytps951-082Gda St. Charles HospitalComment on above: Performed By: #### CBC #### [facility] [address] [place] [address] Dr. Manda ZeeC4.59 106/ulNormal4.20-5.40The [facility] HospitalComment on above:Performed By: #### CBC #### [facility] [address] [place] [address] Dr. Manda YorkWBC9.9 103/ulNormal4.0-11.0The [facility] HospitalComment on above: Performed By: #### CBC #### [facility] [address] [place] [address] Dr. Manda Macdonald 14(COMP METB)on 91-30-1566Yfdnwlx [Mass/Vol]3.7 g/dLNormal 3.4-5.0The [facility] HospitalComment on above:Performed By: #### CBC #### [facility] [address] [place] [address] Dr. Manda YorkAlbumin/Globulin [Mass ratio]1.0 {ratio}NormalThe St. Charles HospitalComment on above:Performed By: #### CBC #### [facility] [address] [place] [address] Dr. Manda GraffP [Catalytic activity/Vol]65 U/MFbnbtv53-969Vuu St. Charles HospitalComment on above:Performed By: #### CBC #### [facility] [address] [place] [address] Dr. Manda Person [Catalytic activity/Vol]35 U/BYxltsq68-66Lga St. Charles HospitalComment on above:Performed By: #### CBC #### [facility] [address] [place] [address] Dr. Manda Loo gap [Moles/Vol]13.0 mmol/LNormalThe [facility] Comment on above:Performed By: #### CBC #### [facility] [address] [place] [address] Dr. Manda YorkAST [Catalytic activity/Vol]12 U/LCritically ttq83-85Syj St. Charles HospitalComment on above:Performed By: #### CBC #### [facility] [address] [place] [address] Dr. Manda YorkBilirubin [Mass/Vol]0.2 mg/dLNormal0.2-1.0The [facility] Comment on above:Performed By: #### CBC #### [facility] [address] [place] [address] Dr. Manda YorkCalcium [Mass/Vol]8.7 mg/dLNormal8.5-10.1[facility] Comment on above:Performed By: #### CBC #### [facility] [address] [place] [address] Dr. Manda YorkChloride [Moles/Vol]104 mmol/WDqrjqe09-681Hbt [facility] Comment on above:Performed By: #### CBC #### [facility] [address] [address] [address] Manda YorkCO2 [Moles/Vol]24.9 mmol/GYdyvjc92.0-32.0The [facility] Comment on above:Performed By: #### CBC #### [facility] [address] [address] [address] Manda YorkCreatinine [Mass/Vol]0.77 mg/dLNormal0.55-1.02The [facility] HospitalComment on above:Performed By: #### CBC #### [facility] [address] [place] [address] Dr. Manda NoonanGFR-AF TONGAN>=60Normal>=60The [facility] HospitalComment on above:Performed By: #### CBC #### [facility] [address] [address] [address] Manda NoonanGFR-NON AF TONGAN>=60Normal>=60The [facility] HospitalComment on above:Performed By: #### CBC #### [facility] [address] [address] [address] Manda YorkGlobulin (S) [Mass/Vol]3.8 g/dLNormalThe St. [facility] HospitalComment on above:Performed By: #### CBC #### [facility] [address] [address] [address] Manda YorkGlucose [Mass/Vol]110 mg/dLCritically qamz57-316Ucf [facility] HospitalComment on above:Performed By: #### CBC #### [facility] [address] [address] [address] Manda YorkPotassium [Moles/Vol]3.9 mmol/LNormal3.5-5.1The [facility] Comment on above:Performed By: #### CBC #### [facility] [address] [address] [address] Manda YorkProtein [Mass/Vol]7.5 g/dLNormal6.4-8.2The [facility] Comment on above:Performed By: #### CBC #### [facility] [address] [place] [address] Dr. Manda Raphaeldium [Moles/Vol]138 mmol/LPavcol701-701Wff [facility] Comment on above:Performed By: #### CBC #### [facility] [address] [place] [address] Dr. Manda Kiser nitrogen [Mass/Vol]17.0 mg/dLNormal7.0-18.0The [facility] HospitalComment on above:Performed By: #### CBC #### [facility] [address] [place] [address] Dr. Manda Kiser nitrogen/Creatinine [Mass ratio]22.1 mg/mgNormalThe St. Charles HospitalComment on above:Performed By: #### CBC #### [facility] [address] [place] [address] Dr. Manda Mckeon RATE WESTERGRENon [id number] RATE45 mm/hrCritically high <=20The [facility] HospitalComment on above:Performed By: #### FT4 #### [facility] [address] [place] [address] Dr. Manda Pickard EIA W/REFLEX 5 BIOMARKERSon [id number] DirectPositive AbnormalNegativeThe St. Charles HospitalComment on above:Performed By: #### CBC #### [facility] [address] [place] [address] Dr. Manda Meza-DNA (DS) Ab Qn10 IU/mLCritically high0-9The [facility] HospitalComment on above:Result Comment: Negative <5 Equivocal 5 - 9 Positive >9Performed By: #### CBC #### [facility] [address] [place] [address] Dr. Manda Chowdary Antibodies<0.9Jkifxk2.0-0.9The [facility] HospitalComment on above:Performed By: #### CBC #### [facility] [address] [place] [address] Dr. Manda Lux BELOW:CommentNormUniversity Hospitals TriPoint Medical CenterComment on above: Result Comment: Autoantibody Disease Association [...] Sm (anti-Schneider) SLE 15 - 30% --------- RN TEAM LEADER Mixed Connective Tissue Disease 95% (U1 nRNP, SLE 30 - 50% anti-ribonucleoprotein) Polymyositis and/or Dermatomyositis 20% --------- Scl-70 (antiDNA Scleroderma (diffuse) 20 - 35% topoisomerase) Crest 13% --------- Felicita-1 Polymyositis and/or Dermatomyositis 20 - 40% --------- Centromere B Scleroderma - Crest variant 80%Performed By: #### CBC #### [facility] [address] [place] [address] Dr. Manda Harmon Anti-SS-A<0.6Kzmoyc7.0-0.9[facility] on above:Performed By: #### CBC #### [facility] [address] [place] [address] Dr. Manda Harmon Anti-SS-B<0.4Ldyluw7.0-0.9[facility] on above:Performed By: #### CBC #### [facility] [address] [place] [address] Dr. Manda Lloyd Antibodies<0.7Cczgkz7.0-0.9[facility] on above:Performed By: #### CBC #### [facility] [address] [place] [address] Dr. Manda NavarreteV PLASMA PCRon [id number] Quant DNA PCR (Plasma)Negative NormalNegativeThe St. Charles HospitalComment on above:Result Comment: No CMV DNA detected. The quantitative range of this assay is 200 to 1 million IU/mL.Performed By: #### CMVPL #### [facility] [address] [place] [address] Dr. Manda Yorklog10 CMV Qn DNA PlUPTCALNoToledo Hospitale St. [facility] HospitalComment on above:Result Comment: Unable to calculate result since non-numeric result obtained for component test.Performed By: #### CMVPL #### [facility] [address] [place] [address] Dr. Manda NavarreteV AB IGMon [id number] (CMV) Ab, IgM35.5 AU/mL Critically high0.0-29.9The [facility] HospitalComment on above:Result Comment: Negative <30.0 Equivocal 30.0 - 34.9 Positive >34.9 A positive result is generally indicative of acute infection, reactivation or persistent IgM production.Performed By: #### NURIS THYLC #### [facility] [address] [place] [address] Dr. Manda Buenrostro AB, IGGon [id number] (CMV) Ab, IgG6.30 U/mL Critically high0.00-0.59The [facility] HospitalComment on above:Result Comment: Negative <0.60 Equivocal 0.60 - 0.69 Positive >0.69Performed By: #### SLEA THYLC #### [facility] [address] [place] [address] Dr. Manda Bruce AUTO DIFFon [id number] #0.1 103/ulNormal0.0-0.1The [facility] HospitalComment on above:Performed By: #### CBC #### [facility] [address] [place] [address] Dr. Manda YorkBasophils/100 WBC (Bld)0.7 %Normal0.2-2.0The [facility] Comment on above:Performed By: #### CBC #### [facility] [address] [place] [address] Dr. Manda Shafer #0.2 103/ulNormal0.0-0.7The [place] HospitalComment on above: Performed By: #### CBC #### [facility] [address] [place] [address] Dr. Manda Noonanosinophils/100 WBC (Bld)2.0 %Normal0.9-7.0The [facility] Comment on above:Performed By: #### CBC #### [facility] [address] [place] [address] Dr. Manda Noonanrythrocyte distribution width (RBC) [Ratio]14.4 %Patbzp82.0-15.[address] [facility] HospitalComment on above:Performed By: #### CBC #### [facility] [address] [place] [address] Dr. Manda YorkHematocrit (Bld) [Volume fraction]37.2 %Kxvfmx87.0-48.0The [facility] HospitalComment on above:Performed By: #### CBC #### [facility] [address] [place] [address] Dr. Manda YorkHemoglobin (Bld) [Mass/Vol]12.3 g/eKZnlzrg39.0-16.0The [facility] HospitalComment on above:Performed By: #### CBC #### [facility] [address] [place] [address] Dr. Manda Calderon #0.02 10e3/ulNormal0.00-0.03The [facility] HospitalComment on above:Performed By: #### CBC #### [facility] [address] [place] [address] Dr. Manda Calderon %0.2 %Normal0.0-0.5The [facility] HospitalComment on above: Performed By: #### CBC #### [facility] [address] [place] [address] Dr. Manda Laguna #2.1 103/ulNormal1.2-3.8The [facility] HospitalComment on above:Performed By: #### CBC #### [facility] [address] [place] [address] Dr. Manda Bolañosmphocytes/100 WBC (Bld)26.4 %Oqomjl67.5-60.0The [facility] HospitalComment on above:Performed By: #### CBC #### [facility] [address] [place] [address] Dr. Manda Richards DIFF REQNONormalThe St. Charles HospitalComment on above: Performed By: #### CBC #### [facility] [address] [place] [address] Dr. Manda Cardoso (RBC) [Entitic mass]29.2 bkVtytgt45.7-34.0The [facility] HospitalComment on above:Performed By: #### CBC #### [facility] [address] [place] [address] Dr. Manda Cardoso (RBC) [Mass/Vol]33.1 g/uHGxesud19.9-35.2The [facility] HospitalComment on above:Performed By: #### CBC #### [facility] [address] [place] [address] Dr. Manda Bradshaw (RBC) [Entitic vol]88.4 gDFlerpr50.0-99.0The [facility] HospitalComment on above:Performed By: #### CBC #### [facility] [address] [place] [address] Dr. Manda Maciel #0.5 103/ulNormal0.3-0.8The [facility] HospitalComment on above:Performed By: #### CBC #### [facility] [address] [place] [address] Dr. Manda Coteocytes/100 WBC (Bld)6.7 %Normal1.7-12.0The [facility] Comment on above:Performed By: #### CBC #### [facility] [address] [place] [address] Dr. Manda Claudio #5.2 103/ulNormal1.4-6.5The [facility] HospitalComment on above:Performed By: #### CBC #### [facility] [address] [place] [address] Dr. Manda Longutrophils/100 WBC (Bld)64.0 %Acogbw77.0-75.0The [facility] HospitalComment on above:Performed By: #### CBC #### [facility] [address] [place] [address] Dr. Manda Ferreiralet mean volume (Bld) [Entitic vol]10.5 fLNormal9.5-13.5The [facility] HospitalComment on above:Performed By: #### CBC #### [facility] [address] [place] [address] Dr. Manda YorkPLT265 103/paMgavfe737-135Bez St[facility] HospitalComment on above: Performed By: #### CBC #### [facility] [address] [place] [address] Dr. Manda YorkRBC4.21 106/ulNormal4.20-5.40The [facility] HospitalComment on above:Performed By: #### CBC #### [facility] [address] [place] [address] Dr. Manda YorkWBC8.1 103/ulNormal4.0-11.0The [facility] HospitalComment on above: Performed By: #### CBC #### [facility] [address] [place] [address] Dr. Manda Lopez [id number] [Mass/Vol]mg/LNormal<=1.0The [facility] HospitalComment on above:Performed By: #### FT4 #### [facility] [address] [place] [address] Dr. Manda Mckeon RATE PARRIS ISLANDERGRENon 85-61-0645OQR RATE34 mm/hrCritically high <=20The [facility] HospitalComment on above:Performed By: #### CBC #### [facility] [address] [place] [address] Dr. Manda Santana (POC)Ordered By: Jonas Black on 18-20-8565Btfavuje [Moles/Vol]106 mmol/L98 - 107 mmol/LMercy Health Work Phone: catheterization and angiography procedure details panelOrdered By: Jonas Black on [id number] Diagnostic Report Demographics Patient TERA Torres Date of Study 10/07/2020 Name Dateof 1980 Gender Female Age 40 year(s) Race Room [id number]^LEYDI^JONAS Height: 67 inch, 170.18 cm Number Corporate [id number] Weight: 234 pounds, 106.1 kg ID # Patient [id number] BSA: 2.16 m^2 BMI: 36.65 kg/m^2 Acct # MR # [id number] Performing Jonas Black Physician 882 Referring # Physician Assisting Physician Additional Comments H&P reviewed and patient examined by performing physician prior to the procedure on 10/04/20 at No changes noted.If changes, see note below. ASA Classification / Mallampati : per Physician. Procedure Procedure Type: Diagnostic procedure: Lt Heart, Coronary Angio, LVgram Complications: - No complication Indications: - Atypical angina - Coronary risk factors - Abnormal nuclear perfusion test Conclusions Procedure Summary Normal coronary arteries Normal LV function Recommendations Medical treatments Risk factor modification. Signature Angiographic Findings Cardiac Arteries and Lesion Findings LMCA:Normal 0% stenosis. LAD: Normal 0% stenosis. LCx: [...] mcg. - Lidocaine HCl 1% 10mg/ml S.Q. 5ml. - Nitroglycerin I.A. 400 mcg. - Heparin I.A. 2000 units. - Verapamil I.A. 2.5 mg. - Fentanyl I.V. 50 mcg. Catheters and Wires: - 6 Fr. Radial TIG 4.0 was used for Left ventriculography. - 6 Fr. Radial TIG 4.0 was used for Left coronary angiography. - 6 Fr. Radial TIG 4.0 was used for Right coronary angiography. Contrast Material: - Isovue 96375 ml Fluoroscopy Time: Diagnostic: 2:12 minutes. Total: [...] assessed as CCS II according to the Lebanese clinical classification. Hemodynamics Condition: Baseline Room Air Estimated: 246.52Heart Rate: 103 bpm Pressure +- ----+ + !Site !Pressure ! +-----+ + !AO !106/68 (86) ! +-----+---- + !AO !104/71 (87) ! +-----+------- + !AO !112/66 (86) ! +-----+ + !LV !126/0 ,1 ! +-----+ + !LV !126/0 ,5 ! +-----+ + Valve Gradients and Areas + +---------+------ ---+---------+ +---------+ + !Valve !Peak !Mean !Area !Index !Flow !Source ! +--- --------+---------+---------+---------+ +---------+ + !Aortic (more content not included)...[employer] Work Phone: edi, [facility] Incoming Cardio Results From [facility]/Ge - 10/07/2020 10:37 AM EDT Cardiac Diagnostic Report Demographics Patient TERA Torres Date of Study 10/07/2020 Name Date of 1980 Gender Female Age 40 year(s) Race Room [id number]^LEYDI^JONAS Height: 67 inch, 170.18 cm Number Corporate [id number] Weight: 234 pounds, 106.1 kg ID # Patient [id number] BSA: 2.16 m^2 BMI: 36.65 kg/m^2 Acct # MR # [id number] Performing Jonas Black Physician Referring # Physician [...] Right coronary angiography. Contrast Material: - Isovue 91728 ml Fluoroscopy Time: Diagnostic: 2:12 minutes. Total: [...] assessed as CCS II according to the Lebanese clinical classification. Hemodynamics Condition: Baseline Room Air [...] +---------+---------+---------+ +---------+ + Shunts Oxygen Values O2 Nickrczv435.4O2 Vamyfbnmauc261.52 [employer] Phone: [facility] Phone: [facility] Phone: creatinine W/GFR Point of CareOrdered By: Jonas Black on 22-73-7187Hxtvxjtnml [Mass/Vol]0.64 mg/dL0.51 - 1.19 mg/dL[employer] Phone: GFR Non->60>60 mL/minUniversity Hospitals Tripoint Medical Centermii Phone: GFR/1.73 sq M.predicted MDRD (S/P/Bld) [Vol rate/Area] mL/min/{1.73_m2}>60 mL/minUniversity Hospitals Tripoint Medical Centermii Phone: GFR/1.73 sq M.predicted MDRD (S/P/Bld) [Vol rate/Area] [employer] Phone: comment on above:Average GFR for 40-49 years old: 99 mL/min/1.73sq m Chronic Kidney Disease: <60 mL/min/1.73sq m Kidney failure: <15 mL/min/1.73sq m eGFR calculated using average adult body mass. Additional eGFR calculator available at: http://www.[employer]/multiple_crcl_2012.htm Hemoglobin and hematocrit, bloodOrdered By: Jonas Black on 09-94-9850Bejeajchrz (Bld) [Volume fraction]41 %36 - 46 %[employer] Phone: Hemoglobin (Bld) [Mass/Vol]14.0 g/dL12.0 - 16.0 g/dL [employer] Phone: No Panel InformationOrdered By: Jonas Black on 83-21-3206[facility] Work Phone: pOCT GlucoseOrdered By: Jonas Black on 10-07-2020 Glucose [Mass/Vol]98 mg/dL74 - 100 mg/dL[employer] Phone: pOCT urine pregnancyOrdered By: Jonas Black on 06-30-0049Prpg HCG ( test) Ql (U)NegativeNEGATIVEUniversity Hospitals Tripoint Medical Centermii Phone: comment on above:Specimens with hCG levels near the threshold of the test (25 mIU/mL) may give a negative or indeterminate result. In such cases, another test should be performed with a new specimen in 48-72 hours. If early is suspected clinically in this setting, correlation with quantitative serum b-hCG level is suggested. [employer] Work Phone: pOTASSIUM (POC)Ordered By: Jonas Black on 10-07-2020 Potassium [Moles/Vol]3.8 mmol/L3.5 - 4.5 mmol/LMercy Health Work Phone: platelet Counton 71-76-1571Mslmilsyv (Bld) [#/Vol]299 10*3/pMRsimdy263-571GvpmlKettering Health Behavioral Medical CenterComment on above:Performed By: #### PLT #### [employer] [address] [place] [address] Washing Machine Loader And Puller: Rick Serrano MDPlatelet countOrdered By: Jonas Black on 62-37-8900Aopyfbfzu (Bld) [#/Vol]299 10*3/uLMercy [employer] Work Phone: [employer] Work Phone: sODIUM (POC)Ordered By: Jonas Black on 10-07-2020 Sodium [Moles/Vol]141 mmol/L138 - 146 mmol/LMercy [employer] Work Phone: coding Summary.on 72-06-6221Sdfjau Summary.CODING DATE: 01/12/2019 FINAL [facility] STATUS: Home (Routine DC) PAYOR: [...] (BMI) 34.0-34.9, adult Z79.899 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 However, the narrative phrase printed from the coding software may appear abbreviated, or result in slightly different terminology. Coded By: Luz Judd Date Saved: 01/12/2019 10:25 [facility] CODING DATE: 01/12/2019 FINAL [facility] STATUS: Home (Routine DC) PAYOR: [...] (BMI) 34.0-34.9, adult Z79.899 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 However, the narrative phrase printed from the coding software may appear abbreviated, or result in slightly different terminology. Revised Coded By: Luz Judd Revised Date Saved: 01/12/2019 10:25 [facility] HospitalXR Chest 2 Viewson 57-68-2753WI Chest 2 ViewsExam Date/Time: 01/11/2019 18:05 EDT [...] Micheal Valenzuela M.D. Transcribed by: BILL Technologist: DAYANARAAdena Fayette Medical CenterAuto Diffon 16-81-6628Lbqmrjmco/100 WBC (Bld)0.8 %Normal0.0-2.0[facility] Comment on above:Order Comment: Order Added by Discern Expert.Performed By: #### [id number], 1044551, 3256254, 1242329, 79821647, 3296246, 8037501, 7793057, 7209439, 06244589, 3534441 #### [facility] [address] [place], [place] [address]Jvwjwmlqh/Leukocytes Auto (Bld) [Pure # fraction]0.1 E9/LNormal 0.0-0.2[facility] Thomas B. Finan CenterComment on above:Order Comment: Order Added by Discern Expert.Performed By: #### 96419199, 9426894, 5907796, 7218904, 20149669, 7635139, 1612555, 6260005, 2524683, 64394779, 1071449 #### [facility] [address], [place] [address]Hzhctrpussw/100 WBC (Bld)1.9 %Normal0.0-8.0[facility] Medical CenterComment on above:Order Comment: Order Added by Discern Expert.Performed By: #### 11603824, 6055801, 2479119, 7654720, 48877553, 8923292, 1828346, 7768951, 9723013, 48960769, 0904403 #### [facility] [address], [place] [address]Foanhdtoiaf/Leukocytes Auto (Bld) [Pure # fraction]0.1 E9/L Normal0.0-0.5FCentervilleComment on above:Order Comment: Order Added by Discern Expert.Performed By: #### 29303710, 3609139, 3426123, 0049532, 80261653, 3413214, 0681918, 8125067, 1599314, 53578410, 4339547 #### [facility] [address], [place] [address]Gfjwjexbdlt/100 WBC (Bld)28.0 %Hrjzol05.0-50.0[facility] Medical CenterComment on above:Order Comment: Order Added by Discern Expert. Performed By: #### 97406788, 0436628, 6652995, 2002384, 74660834, 5256884, 9720849, 4650780, 2661436, 13471955, 8669446 #### [facility] [address], [place] [address]Izuchibbsvb/Leukocytes Auto (Bld) [Pure # fraction]2.2 E9/L Normal1.0-4.0[facility] Medical CenterComment on above:Order Comment: Order Added by Discern Expert.Performed By: #### 20861763, 5752907, 7271805, 1864593, 60806569, 4723364, 3852394, 4806687, 1556202, 37466396, 6929020 #### [facility] [address] [place] [address]Iwcsuagvo/100 WBC (Bld)7.0 %Normal4.0-14.0[facility] Medical CenterComment on above:Order Comment: Order Added by Discern Expert.Performed By: #### 13972055, 1402722, 9019569, 9110125, 05546533, 9085188, 3175021, 2595330, 3520752, 54276529, 7675943 #### [facility] [address] [place] [address]Clgwgwpux/Leukocytes Auto (Bld) [Pure # fraction]0.6 E9/LNormal 0.2-1.0[facility] Medical CenterComment on above:Order Comment: Order Added by Discern Expert.Performed By: #### 69552535, 2780729, 3317449, 7260017, 13660617, 5182388, 7575425, 5181828, 1643270, 00386637, 2686810 #### [facility] [address], [place] [address]Hvbguxplchq/100 WBC (Bld)62.3 %Zcpomu97.0-75.0[facility] Medical CenterComment on above:Order Comment: Order Added by Discern Expert. Performed By: #### 80209206, 0209338, 4386351, 9438999, 22952723, 5534677, 5735218, 9933819, 7924037, 38637651, 2896199 #### [facility] [address], [place] [address]Xautzkiknhj/Leukocytes Auto (Bld) [Pure # fraction]4.9 E9/L Normal2.0-7.5FCentervilleComment on above:Order Comment: Order Added by Discern Expert.Performed By: #### 81263471, 3078496, 4789789, 5572538, 79940457, 1378553, 8335871, 5330667, 4814045, 89154336, 1458607 #### [facility] [address] [place] [address]NVKfp 29-70-9059Jwjzpjcqac [Mass/Vol]0.7 mg/dLNormal0.5-1.3 [facility] Medical CenterComment on above:Performed By: #### 23848469, 3711308, 1228955, 1850573, 67360737, 7713573, 8945614, 0844549, 5044674, 27889090, 1511889 #### [facility] [address], [place] [address]Sscy nitrogen [Mass/Vol]11 mg/dLNormal5-21[facility] Medical CenterComment on above:Performed By: #### 64734958, 6700512, 7327375, 5173367, 92301875, 7336864, 4343130, 1163086, 0910164, 52343656, 3343166 #### [facility] [address], [place] [address]Jqoi nitrogen/Creatinine [Mass ratio]16 No ExxufRpjnlj83-16 [facility] Medical CenterComment on above:Performed By: #### 48578152, 0390311, 7022077, 1451822, 16840180, 2706507, 7773145, 2841706, 4087200, 98357915, 1590992 #### [facility] [address], [place] [address]Ykrod gap [Moles/Vol]14 mmol/LNormal6-16[facility] Medical CenterComment on above:Performed By: #### 76787035, 1229762, 5182203, 9760182, 96776445, 6060183, 5593512, 6670094, 4562929, 20782375, 5868164 #### [facility] [address], [place] [address]Fzazbfm [Mass/Vol]8.9 mg/dLNormal8.9-11.1FCentervilleComment on above:Performed By: #### 44493337, 2340346, 7206763, 2907065, 59519682, 4625589, 4467792, 0895889, 8789319, 40793319, 9190549 #### [facility] [address], [place] [address]Civzppxf [Moles/Vol]107 mmol/QVxvuoh175-611LxrmctKettering Health Behavioral Medical CenterComment on above:Performed By: #### 29766324, 4505718, 4846251, 4714123, 88884725, 7686335, 1189125, 9351587, 8405371, 54681896, 9972372 #### [facility] [address], [place] [address]UL9 [Moles/Vol]22 mmol/WUahtuw60-31MrnvtyKettering Health Behavioral Medical Center Comment on above:Performed By: #### 84036988, 0786691, 8105284, 8570268, 24313107, 2526795, 0187113, 5487630, 9406753, 77918982, 6390436 #### [facility] [address], [place] [address]Bqjtwgu [Mass/Vol]122 mg/mWJjibpz05-415HozvoaKettering Health Behavioral Medical CenterComment on above:Result Comment: If this glucose result represents a fasting glucose, interpretation should refer tothe following reference range: 55-99 mg/dLPerformed By: #### 95338487, 6954358, 4153994, 4977109, 12943586, 8868566, 3638590, 6852235, 9512118, 70457858, 9158517 #### [facility] [address] [place], [place] [address]Kdfcptbwh [Moles/Vol]3.8 mmol/LNormal3.5-5.3FCentervilleComment on above:Performed By: #### 39441801, 8465514, 7557422, 9673056, 81773380, 5925694, 0496738, 2701045, 0503428, 09423427, 7561333 #### [facility] [address] [place], [place] [address]Ykshqq [Moles/Vol]139 mmol/CRsqnwd386-561DggopcSt. Agnes HospitalComment on above:Performed By: #### 90673094, 4693744, 9029458, 7073987, 73661744, 7801790, 7592785, 5387798, 7229543, 97475595, 9722945 #### [facility] [address] [place], [place] [address]MSS w/ Auto Diffon 66-57-7751Skbaqrnofji distribution width (RBC) [Ratio]14.0 %Rrrtjk06.9-14.2FCentervilleComment on above: Performed By: #### 13283565, 7156790, 7063664, 2369377, 83347362, 0323075, 5577982, 5650864, 5064856, 73091008, 7809625 #### [facility] [address] [place], [place] [address]Zmjpxiqwhv (Bld) [Volume fraction]39.9 %Imydwq45.0-46.0[facility] Medical CenterComment on above:Performed By: #### 32910168, 4060284, 2181930, 6277619, 65118590, 6327323, 9300452, 5209062, 7097112, 41587605, 6632173 #### [facility] [address] [place], [place] [address]Febyqcszap (Bld) [Mass/Vol]13.5 g/jNSovrcp57.0-16.0[facility] Medical CenterComment on above:Performed By: #### 26272445, 2287494, 9127799, 9581945, 46735285, 2263225, 6917734, 3884632, 1821707, 18760162, 5655379 #### [facility] [address] [place], [place] [address]UIN (RBC) [Entitic mass]29.4 mrFewgmu08.0-34.0[facility] Medical CenterComment on above:Performed By: #### 45151987, 6103884, 3736664, 9031968, 47167683, 9910817, 1910864, 7586744, 7113365, 05273489, 5696510 #### [facility] [address], [place] [address]UGNV (RBC) [Mass/Vol]33.7 g/bMIpiqln57.3-35.7FCentervilleComment on above:Performed By: #### 82894226, 5906033, 6605589, 0207582, 29321637, 5458722, 2875556, 6482516, 0932018, 43668392, 3255791 #### [facility] [address] [place], [place] [address]PIK (RBC) [Entitic vol]87.4 jWVfeahk69.0-100.0[facility] Medical CenterComment on above:Performed By: #### 66914323, 7434645, 5681700, 1264139, 65068435, 5902412, 7781824, 4056084, 5765231, 20664925, 0674088 #### [facility] [address] [place], [place] [address]Okyookjj mean volume (Bld) [Entitic vol]8.5 fLNormal6.4-10.8 [facility] Medical CenterComment on above:Performed By: #### 03161446, 2418285, 8774841, 4096092, 51550223, 9206161, 2484176, 3880154, 5628748, 33975554, 5502622 #### [facility] [address] [place], [place] [address]Bvosljzwj (Bld) [#/Vol]244.0 E9/USpckws121.0-500.0[facility] Medical CenterComment on above:Performed By: #### 88943636, 8154065, 9266626, 3138349, 05816860, 3918129, 5978572, 1772531, 8902982, 80082859, 5681561 #### [facility] [address] [place], [place] [address]XYT (Bld) [#/Vol]4.6 E12/LNormal4.3-5.9[facility] Medical CenterComment on above:Performed By: #### 81991472, 1699782, 0459303, 2825031, 32020243, 6774560, 1580959, 9119537, 7872014, 45147077, 7635545 #### [facility] [address] [place], [place] [address]XYB corrected for nucl RBC Auto (Bld) [#/Vol]7.9 E9/LNormal 4.0-11.0[facility] Medical CenterComment on above:Performed By: #### 52712092, 7907038, 6859239, 1605472, 57703776, 3676444, 1772027, 9630765, 3310203, 84611953, 2704553 #### [facility] [address] [place], [place] [address]N-Hjadllh 91-73-3859Iojrin D-dimer FEU (PPP) [Mass/Vol]265 ng/wGKwpbqr148-712JgkpqaKettering Health Behavioral Medical CenterComment on above:Result Comment: This D-Dimer assay may [...] skin infections Liver cirrhosis PregnancyPerformed By: #### 14287176, 0578297, 1499645, 7977584, 80387277, 1005840, 1611672, 2113239, 5129253, 12870980, 9939226 #### [facility] [address] [place] [address]NG Clinical Summaryon 32-34-4216IA Clinical Summary [address] [address] ED Clinical Summary Person Information Name: ARIADNA HALEY [facility] Age: 38 Years : 1980 12:00 AM Sex: Female Language: Macedonian PCP: Charles Nicole DO Marital Status: Single Phone: [phone] Visit Id: Visit Reason: Chest pain; CHEST [...] 01/11/2019 6:42 PM 01/11/2019 6:42 PM ADDRESS: [address] [place] [id number] [facility] DOC NOTES: MEDICAL INFORMATION: Prescriptions Given: PATIENT EDUCATION INFORMATION: Instructions: Smoking Cessation; Chest Pain (Nonspecific) Follow up: With: Address: When: [address] [address] Business (1) Within 2 to 3 days Comments: Return to ED if symptoms worsen DIAGNOSIS: 1:Chest painNormalFisher Atul Medical CenterED Note-Physicianon 60-39-8540SD Note-PhysicianBasic Information Time Seen: Orin Browne DO [...] prescription medications Follow-up With When Contact Information [place] Within 2 to [address] [place], [place] [id number] [facility] (1) Additional Instructions: Return to ED [...] ECG Signed By: Orin Browne DO 01/11/2019 15:54:18[facility] Comment on above:Result Comment: Electronically Signed By: Orin Browne DO\.br\Date and Time Signed: 01/11/19 18:36 EDTED Patient Education Noteon 19-31-8722AL Patient Education NoteFamily Medicine Smoking Cessation Quitting [...] and skin patches. Some may be available lkuq-ksi-nbhpmpi and others require a prescription. ? Antidepressant [...] Document Reviewed: 08/18/2012 ExitCare? Patient Information ?2014 [employer]. This information is not intended to replace [...] Document Reviewed: 12/13/2008 ExitCare? Patient Information ?2015 [employer]Q. This information is not intended to replace advice given to you by your health care provider. Make sure you discuss any questions you have with yourhealth care provider.[facility] Patient Summaryon 47-20-6839ZO Patient Summary [address] [address] Patient Discharge Instructions Person Information Name: ARIADNA HALEY Age: 38 Years Arrival Date: 01/11/2019 3:44 PM Discharge Diagnosis: 1:Chest pain Primary Care Physician: Charles Nicole DO Provider Information Primary Provider: Orin Browne DO Advanced Organizational Consultant:None The exam and treatment you received in the Emergency Department were for an urgent problem and are not intended as complete care. It is important that you follow up with a doctor, nurse practitioner,or physician?s laboratory assistant for ongoing care. If your symptoms [...] Follow-up Instructions: With: Address: When: Charles Nicole [address] [place] [address] Business (1) Within 2 to 3 days [...] opioids can be used to help relieve sokszqlx-gt-qaduky pain and are often prescribed following a [...] your community drug take- back program or [employer] mail-back program, or flush them down the toilet, following guidance from the Food and Drug Administration (www.fda.gov/Drugs/ResourcesForYou). ? Visit www.cdc.gov/drugoverdose to learn about the risks of opioids abuse and overdose. ? If you believe you may be struggling with addiction, tell your health care companion and ask for guidance or call [facility]?S National Helpline at 9-482-572-DZVX. l Source: US Department of Health and Human Services/Center for Disease Control & Prevention [facility] Medications Given: Medication Dose Route No medications found. Medication Information: Medications to Continue with No Changes Other Medications metformin (metformin 500 mg ER Tab) 250 Milligram By Mouth 2 times a day. Comment: Pharmacy Information: Thank you for choosing [facility] Patient Education Materials: Smoking Cessation [...] and skin patches. Some may be available moow-jea-qrihiqx and others require a prescription. ? Antidepressant [...] Document Reviewed: 08/18/2012 ExitCare? Patient Information ?2014 Eye-Q. This information is not intended to replace [...] Document Reviewed: 12/13/2008 ExitCare? Patient Information ?2014 Eye-Q. This information is not intended to replace advice given to you by your health care provider. Make sure you discuss any questions you have with yourhealth care provider. TERA Dorantes NICOLE B , have received the following patient education materials/instructions and have verbalized understanding: Patient Education Materials: Smoking Cessation; Chest Pain (Nonspecific) Follow-up Instructions: With: Address: When: [place] [address] Business (1) Within 2 to 3 days Comments: Return to ED if symptoms worsen Prescriptions: Patient Signature Date Clinician/Nurse Signature Date 01/11/19 18:42:28NormalKettering Health Behavioral Medical CenterProgress Note-Nurseon 85-48-8133Mgrytqyp Note-NursePt explained discharge instructions and voiced understanding. Pt sts she will follow up with her PCP and denies any furthe questions at this time.NormalKettering Health Behavioral Medical CenterTroponin 0 Hr.on 60-48-7432Lztxjstd I.cardiac [Mass/Vol]ng/mLNormal<=0.03[facility] Behavioral Medical CenterComment on above:Result Comment: New Troponin Assay 10/05/[address] Cutoff value > or = 0.03 ng/mL in conjunction with clinical conditions of myocardial infarction. (www.escardio.org/guidelines)Performed By: #### 80764928, 7250236, 6747793, 3307781, 63340846, 4808834, 0612106, 5099923, 1876109, 45349177, 6513601 #### [facility] [address] [place], [place] [address]nEPIxd 43-30-2791UBA/1.73 sq M predicted among blacks MDRD (S/P/Bld) [Vol rate/Area]mL/min/{1.73_m2}Normal>=59[facility] Comment on above:Order Comment: Order added by Discern Expert.Result Comment: eGFR is race adjusted. AA=.Performed By: #### 39380842, 6236656, 8641216, 2587493, 53494816, 0244375, 6213276, 5604222, 5545446, 69591585, 6547852 #### [facility] [address] [place], [place] [address]CHL/1.73 sq M predicted among non-blacks MDRD (S/P/Bld) [Vol rate/Area]mL/min/{1.73_m2}Normal>=59[facility] Behavior[facility] Medical CenterComment on above: Order Comment: Order added by Discern Expert.Result Comment: Chronic kidney disease could be indicated at eGFR's of less than 60 mL/min/1.73m2. Kidney failure is indicated at less than 15 mL/min/1.73m2.Performed By: #### 05366968, 5537906, 0897698, 7951780, 33983469, 4589359, 6465068, 0235488, 3436740, 60393210, 2571098 #### [facility] [address] [place], [place] [address]FJZCB, LUMBOSACRAL CMPLT(BENDING)on 16-39-0724OJHIV, LUMBOSACRAL CMPLT(BENDING) Patient Name: ARIADNA HALEY STUDY: SPINE, LUMBOSACRAL; CMPLT(BENDING); 12/05/2018 1:47 pm INDICATION: LUMBAR XR. COMPARISON: None. ACCESSION NUMBER(S): [id number] ORDERING CLINICIAN: KADE EARLY FINDINGS: No lumbar spine fracture. Scattered small endplate osteophytes. Vertebral body and disc space heights are are maintained. 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 No spondylolisthesis. No instability on flexion or extension. IMPRESSION: Degenerative changes of the lumbar spine without instability. Electronically signed by: EARNESTINE MANUEL MDWellSpan Surgery & Rehabilitation Hospital Coding Summary.on [id number] Summary.CODING DATE: 09/15/2018 FINAL [facility] STATUS: Home (Routine DC) PAYOR: [...] F17.210 Nicotine dependence, cigarettes, uncomplicated Z79.899 Other longterm (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 However, the narrative phrase printed from the coding software may appear abbreviated, or result in slightly different terminology. Coded By: Luz Judd Date Saved: 09/15/2018 07:15 amNormalKettering Health Behavioral Medical CenterAuto Diffon 94-29-9415Zbgqukkjf/100 WBC (Bld)0.6 %Normal0.0-2.0[facility] Comment on above:Order Comment: Order Added by Discern Expert.Performed By: #### 05501839, 1399657, 2503758, 6301223, 20870783, 0717225, 4969840, 2808959, 0630722, 16368909, 7631661 #### [facility] [address], [place] [address]Hsezyrykl/Leukocytes Auto (Bld) [Pure # fraction]0.1 E9/LNormal 0.0-0.2FCentervilleComment on above:Order Comment: Order Added by Discern Expert.Performed By: #### 59532447, 3431532, 9770694, 7108215, 70238253, 2683883, 6100622, 7273308, 5638144, 81743446, 2127269 #### [facility] [address], [place] [address]Pvlfhhiiwwv/100 WBC (Bld)2.2 %Normal0.0-8.0[facility] Medical CenterComment on above:Order Comment: Order Added by Discern Expert.Performed By: #### 68629590, 7079618, 6722447, 1691451, 39288232, 4777082, 5823720, 4402851, 5871706, 77140627, 0508543 #### [facility] [address], [place] [address]Qqeomrdnhnj/Leukocytes Auto (Bld) [Pure # fraction]0.2 E9/L Normal0.0-0.5FCentervilleComment on above:Order Comment: Order Added by Discern Expert.Performed By: #### 29358455, 7315893, 1891749, 4571309, 50378341, 0009740, 5795992, 0952472, 0977718, 65548745, 3815419 #### [facility] [address], [place] [address]Bchwfmwhryo/100 WBC (Bld)30.6 %Ryxmhy30.0-50.0[facility] Medical CenterComment on above:Order Comment: Order Added by Discern Expert. Performed By: #### 72682825, 2145070, 7235044, 1833597, 43544458, 4009568, 9466930, 5417046, 6481407, 81302624, 8616445 #### [facility] [address], [place] [address]Vbdeuoelmvj/Leukocytes Auto (Bld) [Pure # fraction]3.0 E9/L Normal1.0-4.0[facility] Medical CenterComment on above:Order Comment: Order Added by Discern Expert.Performed By: #### 59168104, 4289093, 6181962, 7682934, 07488531, 8668275, 0113856, 4275127, 8398074, 28748512, 6287345 #### [facility] [address], [place] [address]Lmnettiso/100 WBC (Bld)7.2 %Normal4.0-14.0[facility] Medical CenterComment on above:Order Comment: Order Added by Discern Expert.Performed By: #### 27077811, 9578726, 4354666, 3792140, 29089181, 9350021, 7088244, 5617506, 7849379, 50810333, 9940682 #### [facility] [address], [place] [address]Qacgbufep/Leukocytes Auto (Bld) [Pure # fraction]0.7 E9/LNormal 0.2-1.0[facility] Medical CenterComment on above:Order Comment: Order Added by Discern Expert.Performed By: #### 67538869, 6332032, 5492070, 2671581, 37615923, 8943458, 3338212, 4863318, 0758025, 61736218, 8915705 #### [facility] [address], [place] [address]Skkwstczlno/100 WBC (Bld)59.4 %Slezsb76.0-75.0[facility] Medical CenterComment on above:Order Comment: Order Added by Discern Expert. Performed By: #### 31886225, 7422601, 2509396, 1745939, 97474988, 2545066, 7535555, 5496628, 3354553, 55058813, 9933578 #### [facility] [address], [place] [address]Ydppxjgzgxp/Leukocytes Auto (Bld) [Pure # fraction]5.9 E9/L Normal2.0-7.5FCentervilleComment on above:Order Comment: Order Added by Discern Expert.Performed By: #### 60584421, 2602259, 2332477, 5282178, 84327012, 5150329, 2647100, 5171676, 6392043, 24064207, 1551712 #### [facility] [address], [place] [address]OOGvb 70-95-7387Cxbevolbox [Mass/Vol]0.6 mg/dLNormal0.5-1.3 [facility] Medical CenterComment on above:Performed By: #### 46330216, 6725023, 6832064, 6984188, 72015647, 5302256, 7665621, 5754161, 4259827, 20172527, 0191552 #### [facility] [address], [place] [address]Zlqe nitrogen [Mass/Vol]15 mg/dLNormal5-21[facility] Medical CenterComment on above:Performed By: #### 75600383, 3146418, 8262987, 6033528, 49508002, 5795860, 2353251, 5957712, 9701962, 60774065, 9772960 #### [facility] [address], [place] [address]Byju nitrogen/Creatinine [Mass ratio]25 No VgizbYgid48-62YpqiqyKettering Health Behavioral Medical CenterComment on above:Performed By: #### 34315122, 9292526, 7277818, 3893197, 91890649, 5194273, 5917146, 5144301, 7436192, 93655319, 1495300 #### [facility] [address], [place] [address]Cmxcm gap [Moles/Vol]13 mmol/LNormal6-16[facility] Medical CenterComment on above:Performed By: #### 59236895, 9143404, 0452766, 8116064, 26046388, 0210465, 4717129, 2779994, 0271881, 43750793, 7673797 #### [facility] [address], [place] [address]Vgfonhc [Mass/Vol]9.5 mg/dLNormal8.9-11.1FCentervilleComment on above:Performed By: #### 57566218, 7148009, 9605564, 6732067, 01964791, 4711478, 5315276, 0835983, 8575143, 17807695, 5685501 #### [facility] [address], [place] [address]Ozkllrqd [Moles/Vol]103 mmol/CVidlix183-828DgjjnoKettering Health Behavioral Medical CenterComment on above:Performed By: #### 45986734, 4483086, 1245104, 3577265, 91529131, 7028859, 5135872, 5048971, 1676730, 51776168, 3956910 #### [facility] [address], [place] [address]UF7 [Moles/Vol]24 mmol/REzskjw96-46PleynnKettering Health Behavioral Medical Center Comment on above:Performed By: #### 64566395, 6983797, 7088387, 9621194, 83326722, 1738367, 3938788, 1362510, 0641889, 10764608, 4699793 #### [facility] [address], [place] [address]Yizrtzr [Mass/Vol]102 mg/sWNgmhyp59-373GatyltKettering Health Behavioral Medical CenterComment on above:Result Comment: If this glucose result represents a fasting glucose, interpretation should refer tothe following reference range: 55-99 mg/dLPerformed By: #### 79479949, 6538188, 9567115, 6673764, 57896692, 0194510, 0290858, 2372952, 4880709, 08935320, 9892558 #### [facility] [address], [place] [address]Okbluyebo [Moles/Vol]3.6 mmol/LNormal3.5-5.3FCentervilleComment on above:Performed By: #### 63715624, 6220508, 9251929, 7700538, 89472373, 9115903, 6061588, 9672397, 8882738, 99532745, 4308104 #### [facility] [address], [place] [address]Nnfksq [Moles/Vol]136 mmol/SSzbqrj198-937NiukyuSt. Agnes HospitalComment on above:Performed By: #### 87040905, 5515538, 2280559, 2849748, 62193672, 6867842, 7621633, 4659801, 7655899, 34488188, 8072600 #### [facility] [address], [place] [address]VET w/ Auto Diffon 23-59-0834Glssfwyxvmt distribution width (RBC) [Ratio]14.2 %Vgntit69.9-14.2FCentervilleComment on above: Performed By: #### 38936622, 8000926, 6866297, 2121066, 26728713, 5442739, 9467338, 1294328, 6507238, 48929521, 3969566 #### [facility] [address] [place], [place] [address]Wseevdzyzy (Bld) [Volume fraction]39.4 %Qzquzq21.0-46.0[facility] Medical CenterComment on above:Performed By: #### 67190538, 9478585, 1651739, 3984748, 28926860, 2159354, 5712898, 8543735, 0142484, 33316966, 6826507 #### [facility] [address], [place] [address]Kysinoqujn (Bld) [Mass/Vol]13.3 g/hEDbxxwe22.0-16.0[facility] Medical CenterComment on above:Performed By: #### 42698433, 5654499, 1680910, 8331238, 07270322, 7946395, 3660076, 3545912, 6798822, 78860248, 1422570 #### [facility] [address], [place] [address]VXP (RBC) [Entitic mass]29.2 ccGaqkgq24.0-34.0[facility] Medical CenterComment on above:Performed By: #### 16818258, 7256958, 9951100, 4560974, 98242616, 8260144, 4788863, 3272561, 9481987, 14847774, 3843248 #### [facility] [address], [place] [address]IDHT (RBC) [Mass/Vol]33.8 g/zFPyycjj26.3-35.7FCentervilleComment on above:Performed By: #### 49638906, 2712827, 7923415, 7378195, 78885410, 3559896, 9304882, 5600733, 6514144, 50299449, 7461842 #### [facility] [address] [place], [place] [address]ISL (RBC) [Entitic vol]86.6 wSUgeuyt58.0-100.0[facility] Medical CenterComment on above:Performed By: #### 68014181, 9333328, 6928198, 0014027, 50038051, 9390647, 4032710, 6241164, 1730761, 18151276, 0836508 #### [facility] [address], [place] [address]Zenxgyrb mean volume (Bld) [Entitic vol]8.8 fLNormal6.4-10.8 [facility] CenterComment on above:Performed By: #### 19802666, 9144784, 8914839, 5519450, 67775881, 3365454, 5744132, 3446920, 9161683, 51548442, 8581455 #### [facility] [address], [place] [address]Fbuurebzw (Bld) [#/Vol]307.0 E9/NRjblnk312.0-500.0[facility] Medical CenterComment on above:Performed By: #### 32442544, 2677627, 1722483, 5540250, 69571989, 8005773, 7210195, 6364267, 0163106, 38839842, 4584624 #### [facility] [address] [place] [address]ZVJ (Bld) [#/Vol]4.6 E12/LNormal4.3-5.9[facility] Medical CenterComment on above:Performed By: #### 93842134, 9447055, 3179115, 6700638, 35408090, 9418777, 0646250, 6883051, 3162387, 08907620, 4939796 #### [facility] [address] [place] [address]KGG corrected for nucl RBC Auto (Bld) [#/Vol]9.9 E9/LNormal 4.0-11.0[facility] CenterComment on above:Performed By: #### 56004665, 5851777, 3812961, 2305879, 88075780, 1375594, 3713697, 6935543, 3828287, 25046200, 7502240 #### [facility] [address] [place] [address]FGlg 26-97-5507AD [Catalytic activity/Vol]53 Int._Unit/LNormal 14-261[facility] Medical CenterComment on above:Performed By: #### 22112543, 9295377, 6700683, 1597450, 94865453, 7473993, 9675223, 4948238, 8723554, 55749057, 0845275 #### [facility] [address] [place] [address]MZ Clinical Summaryon [id number] Clinical Summary [address] [address] ED Clinical Summary Person Information Name: ARIADNA HALEY/[facility] Age: 37 Years : 1980 12:00 AM Sex: Female Language: Macedonian PCP: Charles Nicole DO Marital Status: Single Phone: [phone] Visit Id: Visit Reason: Anxiety; Paraesthesia; NUMBNESS [...] 09/14/2018 12:17 AM 09/14/2018 12:17 AM ADDRESS: [address] [place] [id number] [facility] DOC NOTES: MEDICAL INFORMATION: Prescriptions Given: Prescription Display gabapentin (gabapentin 100 mg Cap) 100 mg = 1 cap(s), Oral, Daily, X 7 day(s), # 7 cap(s), Refills(s) 0, Pharmacy: [facility] gabapentin (gabapentin 100 mg Cap) 100 mg = 1 cap(s), Oral, Daily, X 7 day(s), # 7 cap(s), Refills(s) 0, Pharmacy: [facility]/pharmacy #[id number] magnesium oxide (magnesium oxide 400 mg Tab) 400 mg = 1 tab(s), Oral, Daily, X 7 day(s), # 7 tab(s), Refills(s) 0, Pharmacy: [facility] magnesium oxide (magnesium oxide 400 mg Tab) 400 mg = 1 tab(s), Oral, Daily, X 7 day(s), # 7 tab(s), Refills(s) 0, Pharmacy: [facility]/pharmacy #[id number] Home Meds Display metformin (metformin 500 mg ER Tab) 250 mg, Oral, BID, Refills(s) 0 PATIENT EDUCATION INFORMATION: Instructions: Paresthesia, Ejes-ph-Nnsa; Restless Legs Syndrome Follow up: With: Address: When: [facility] [address] Business (1) Within 1 to 2 days Comments: neurologist you may also follow up with him With: Address: When: [address] [address] Business (1) Within 1 to 2 days Comments: Return to ED if symptoms worsen DIAGNOSIS: 1:Restless leg syndromeNormalFisher Jenkins Medical CenterED Note-Nursingon 75-67-7901QJ Note-NursingPt up to RR, gait steady.[facility] CenterED Note-NursingAware of need for urine specimen, denies urge at present, states will notify when able to produce sample, will monitor.NormalMercy Health Allen Hospital Medical CenterED Note-Physicianon [id number] Note-PhysicianBasic Information Time Seen: Génesis Lozoya DO [...] day(s), # 7 cap(s), Refills(s) 0, Pharmacy: [facility]/pharmacy #6177 magnesium oxide, 400 mg = 1 tab(s), Oral, Daily, X 7 day(s), # 7 tab(s), Refills(s) 0, Pharmacy: [facility]/pharmacy #6177 Sodium Chloride 0.9% [...] Sayda Kelley Within 1 to [address] [address] Additional Instructions: neurologist you may also follow up with him Cahrles Nicole Within 1 to [address] [place] [address]- [facility] (1) Additional Instructions: Return to ED if symptoms worsen Patient Education Paresthesia, Ludz-ot-Brmf Restless Legs Syndrome Problem List/Past Medical History [...] 00:08:00 EDT) Diagnostic Results No qualifying data available.NormalFisher Jenkins Medical CenterComment on above: Result Comment: Electronically Signed By: Génesis Lozoya DO\.dyan\Date and Time Signed: 09/14/18 01:59 EDTED Patient Education Noteon [id number] Patient Education NoteFamily Medicine Paresthesia Paresthesia is [...] Document Reviewed: 01/29/2012 ExitCare? Patient Information ?2014 Eye-Q. This information is not intended to replace [...] ? Drawing. ? Crawling. ? Worming. ? [place]. ? Tingling. ? Pins and needles. ? [...] Document Reviewed: 08/06/2011 ExitCare? Patient Information ?2014 Eye-Q. This information is not intended to replace advice given to you by your health care provider. Make sure you discuss any questions you have with yourhealth care provider.[facility] Patient Summaryon [id number] Patient Summary [place] [address] Patient Discharge Instructions Person Information Name: ARIADNA HALEY Age: 37 Years Arrival Date: 09/13/2018 10:16 PM Discharge Diagnosis: 1:Restless leg syndrome Primary Care Physician: Charles Nicole DO Provider Information Primary Provider: Génesis Lozoya DO Advanced Organizational Consultant:None The exam and treatment you received in the Emergency Department were for an urgent problem and are not intended as complete care. It is important that you follow up with a doctor, nurse practitioner,or physician?s laboratory assistant for ongoing care. If your symptoms [...] Sayda Kelley [facility], [address] [place], [place] [address] [address] Business (1) Within 1 to 2 days Comments: neurologist you may also follow up with him With: Address: When: [address] [place] [address] Business (1) Within 1 to 2 days Comments: Return to ED if symptoms worsen In the event that this physician does not participate in your insurance network, please consult with your insurance company to find a nearby participating provider. Patient Education Materials: Paresthesia, Pmiq-de-Tdyf; Restless Legs Syndrome A MESSAGE TO ALL PATIENTS REGARDING OPIOIDS PRESCRIPTION OPIOIDS: WHAT YOU NEED TO KNOW Prescription opioids can be used to help relieve hoeeryzd-ga-qrixaf pain and are often prescribed following a [...] your community drug take- back program or your[employer] mail-back program, or flush them down the toilet, following guidance from the Food and Drug Administration (www.fda.gov/Drugs/ResourcesForYou). ? Visit www.cdc.gov/drugoverdose to learn about the risks of opioids abuse and overdose. ? If you believe you may be struggling with addiction, tell your health care companion and ask for guidance or call SAMHSA?S National Helpline at 9-401-380-USCJ. v Source: US Department of Health and Human Services/Center for Disease Control & Prevention [facility] Medications Given: Medication Dose Route Sodium Chloride 0.9% intravenous solution 1000.00 mL Initial Volume 1000.00 mL/hr IV Piggyback Left Mid Forearm Medication Information: New Medications [facility]/pharmacy #[id number], [address] [phone], [phone] gabapentin (gabapentin 100 mg Cap) 1 Capsules By Mouth every day for 7 Days. Refills: 0. magnesium oxide (magnesium oxide 400 mg Tab) 1 Tabs By Mouth every day for 7 Days. Refills: 0. [facility], [address] [facility] [place] [id number], [phone] gabapentin (gabapentin 100 mg Cap) 1 Capsules By Mouth every day for 7 Days. Refills: 0. magnesium oxide (magnesium oxide 400 mg Tab) 1 Tabs By Mouth every day for 7 Days. Refills: 0. Medications to Continue with No Changes Other Medications metformin (metformin 500 mg ER Tab) 250 Milligram By Mouth 2 times a day. Comment: Pharmacy Information: Thank you for choosing [facility] Patient Education Materials: Paresthesia Paresthesia [...] Document Reviewed: 01/29/2012 ExitCare? Patient Information ?2015 Eye-Q. This information is not intended to replace [...] ? Drawing. ? Crawling. ? Worming. ? [place]. ? Tingling. ? Pins and needles. ? [...] Document Reviewed: 08/06/2011 ExitCare? Patient Information ?2014 Eye-Q. This information is not intended to replace advice given to you by your health care provider. Make sure you discuss any questions you have with yourhealth care provider. TERA Dorantes NICOLE B , have received the following patient education materials/instructions and have verbalized understanding: Patient Education Materials: Paresthesia, Ybbl-nu-Ahcw; Restless Legs Syndrome Follow-up Instructions: With: Address: When: Sayda Warren [address] [place] [address] Business (1) Within 1 to 2 days Comments: neurologist you may also follow up with him With: Address: When: [address] [address] [employer] (1) Within 1 to 2 days Comments: Return to ED if symptoms worsen Prescriptions: [gabapentin (gabapentin 100 mg Cap)] [gabapentin (gabapentin 100 mg Cap)] [magnesium oxide (magnesium oxide 400 mg Tab)] [magnesium oxide (magnesium oxide 400 mg Tab)] Patient Signature Date Clinician/Nurse Signature Date 09/14/18 00:21:38NormalKettering Health Behavioral Medical CenterHep Func Panelon 09-14-2018 Bilirubin.direct [Mass/Vol]UTCAbnormal0.1-0.9[facility] Medical CenterComment on above:Result Comment: Result verified by Discern Rule. Performed result UTC (Unable to Calculate) was sent as an Alpha code due the inability to calculate a valid numeric value.Performed By: #### 88668446, 3660952, 2948201, 5046301, 44411862, 5665329, 1346291, 3204463, 7205473, 86930166, 7077180 #### [facility] [address] [place] [address]Hxzwoti [Mass/Vol]1.1 g/dLNormal1.1-2.2FCentervilleComment on above:Performed By: #### 69238491, 5851450, 2206361, 1364487, 38941736, 2546324, 0397165, 2149855, 1415565, 04873006, 6578411 #### [facility] [address] [place] [address]Hozezhh [Mass/Vol]4.1 g/dLNormal3.3-5.0[facility] Medical CenterComment on above:Performed By: #### 39772064, 3181022, 6492791, 6182264, 04174665, 2048109, 4852397, 0230199, 3682538, 48835697, 0135530 #### [facility] [address] [place] [address]VSM [Catalytic activity/Vol]69 Int._Unit/EXcwwfg23-80VwmahoKettering Health Behavioral Medical CenterComment on above:Performed By: #### 51300144, 1991098, 0392488, 9463020, 68162566, 0560096, 4519177, 1874397, 8271368, 50792262, 1007135 #### [facility] [address] [place] [address]IFJ No additional P-5'-P [Catalytic activity/Vol]27 Int._Unit/L Normal6-46[facility] Medical CenterComment on above:Performed By: #### 61133608, 5488354, 0659868, 7458989, 78224548, 9675607, 6977453, 1556242, 4203578, 63682736, 2789956 #### [facility] [address] [place] [address]CEN [Catalytic activity/Vol]16 Int._Unit/LNormal5-43[facility] Medical CenterComment on above:Performed By: #### 10939830, 8268987, 2973424, 7146115, 18216465, 6361403, 1004225, 5556319, 7748279, 70483119, 0834786 #### [facility] [address] [place], [place] [address]Tmbodqfqw [Mass/Vol]0.5 mg/dLNormal0.0-1.1FCentervilleComment on above:Performed By: #### 87815091, 6593425, 4857810, 5091549, 52524502, 3641027, 6127809, 0865254, 0086351, 88706832, 1017984 #### [facility] [address] [place], [place] [address]Efxjisufi.direct [Mass/Vol]mg/dLNormal0.1-0.4FCentervilleComment on above:Performed By: #### 94999704, 4317825, 7305317, 8272923, 08431808, 7029880, 7064729, 7127916, 9527375, 00285773, 7626465 #### [facility] [address] [place], [place] [address]Nkhxcmdp (S) [Mass/Vol]3.7 g/dLNormal1.4-4.0[facility] Medical CenterComment on above:Performed By: #### 43467458, 1482230, 4302586, 0074877, 31738250, 4856201, 1478481, 7733881, 0250557, 04592056, 7263713 #### [facility] [address] [place], [place] [address]Tlklrmk [Mass/Vol]7.8 g/dLNormal6.0-7.8[facility] CenterComment on above:Performed By: #### 14394948, 1324633, 6468110, 4795682, 99767549, 2208116, 7928965, 3681100, 4375655, 45002424, 5518171 #### [facility] [address] [place], [place] [address]Lykaqtvtnad 97-64-9736Pqhkbwvju [Mass/Vol]1.9 mg/dLNormal 1.3-2.4FCentervilleComment on above:Performed By: #### 09323315, 5618363, 4847200, 2579928, 41095508, 3777969, 3554607, 6348033, 7484093, 94087339, 9817986 #### [facility] [address] [place], [place] [address]Sulfwgrsozp 05-70-5103Veezeopqz [Mass/Vol]9 ng/mLNormal<=69 [facility] CenterComment on above:Performed By: #### 54985586, 3032804, 3844349, 8775007, 70010093, 8934166, 5414589, 0233815, 9824117, 03411848, 0376427 #### [facility] [address] [place], [place] [address]ON & PTTon 67-77-6723rLEW Coag (PPP) [Time]34.5 second(s)Normal 25.1-36.5FCentervilleComment on above:Result Comment: Heparin therapeutic range (represented by Anti-Factor Xa activity of 0.2 - 0.4 U/mL) corresponds to PTT of 56.6 - 109.0 sec.Performed By: #### 42375911, 9967715, 5720281, 0220555, 92617928, 2305977, 5250786, 9269274, 7220324, 16835945, 8703148 #### [facility] [address] [place], [place] [address]LMY Coag (PPP) [Relative time]1.0 {INR}[facility] Medical CenterComment on above:Result Comment: INR results are specifically intended to assess patients stabilized on long-term Anticoagulation therapy suggested INR?s ?Less Intensive Anticoagulation? 2.0 ? 3.0 Conventional Range 3.0 ? 4.5Performed By: #### 78790416, 2770273, 1724385, 3701308, 67247102, 2443815, 5180028, 2608661, 4258461, 23969638, 6205712 #### [facility] [address] [place], [place] [address]ZV Coag (PPP) [Time]11.2 second(s)Tzzfpa81.2-12.9[facility] Medical CenterComment on above:Performed By: #### [id number], 5594272, 1883862, 9501503, 03987926, 4988628, 9080921, 7353520, 9177931, 81638643, 9482888 #### [facility] [address] [place], [place] [address]Ygekajmewvki 61-24-8590Simlmpxze [Mass/Vol]3.8 mg/dLNormal 1.9-4.6FCentervilleComment on above:Performed By: #### [id number], 2649916, 9839107, 1667819, 25081135, 0510151, 5090190, 6046489, 6858386, 84437593, 6347359 #### [facility] [address] [place], [place] [address]Kbdfbnvm 0 Hr.on 48-96-3922Bzlfmavl I.cardiac [Mass/Vol]ng/mL Normal<=0.03[facility] Behavior[facility] Medical CenterComment on above:Result Comment: New Troponin Assay 10/05/[address] Cutoff value > or = 0.03 ng/mL in conjunction with clinical conditions of myocardial infarction. ([email or web address])Performed By: #### [id number], 4714193, 5491498, 7215841, 41909411, 9951104, 2516203, 1409158, 7324912, 55442014, 8744780 #### [facility] [address] [place], [place] [address]LB With Cult Reflexon 30-36-7249Cbplddzy LM Ql (Urine sed)TRACE NormalTraceFisher Atul Medical CenterComment on above:Performed By: #### [id number], 4627842, 2569201, 7340595, 82316379, 7951173, 0934632, 6965222, 7597822, 51946714, 7762813 #### [facility] [address] [place], [place] [address]Ebjfereas Ql (U)NegativeNormalNegativeNovant Health, Encompass Healther [facility] Fin[facility] CenterComment on above:Performed By: #### [id number], 8619955, 8318646, 0143954, 60682052, 4391830, 2200695, 4354093, 2134639, 83197010, 1611861 #### [facility] [address] [place], [place] [address]Gnwuufu (U)CLEARNormalClearKettering Health Behavioral Medical CenterComment on above:Performed By: #### 41011493, 0388942, 3242767, 9951184, 22847890, 3174947, 1223111, 8396228, 7850856, 97436342, 7377542 #### [facility] [address] [place], [place] [address]Wqiji (U)YELLOWNormalYellowKettering Health Behavioral Medical CenterComment on above:Performed By: #### 33598486, 5463900, 4004709, 4578825, 51937779, 6033658, 6414234, 7284403, 4154775, 43135813, 1014516 #### [facility] [address] [place] [address]Qyeqevzkzs cells.squamous LM.HPF (Urine sed) [#/Area]0-2Normal 0-2Fisher [facility]. Finan CenterComment on above:Performed By: #### 53210175, 5760389, 9278293, 7453422, 17943240, 6791562, 2196785, 3314665, 5983801, 01828896, 5290903 #### [facility] [address] [place], [place] [address]Rjmfton Test strip (U) [Mass/Vol]NegativeNormalNegativeKettering Health Behavioral Medical CenterComment on above:Performed By: #### 90367385, 9138470, 6395732, 5848055, 33877534, 7821848, 0588044, 3663934, 9972863, 34905639, 6930600 #### [facility] [address] [place], [place] [address]Tsuojqljzv Ql (U)NegativeNormalNegativeKettering Health Behavioral Medical CenterComment on above:Performed By: #### 38486874, 7607622, 0617701, 1889975, 20682361, 7972354, 7241053, 8746645, 9682831, 29762193, 7489537 #### [facility] [address] [place], [place] [address]Xysmqqi (U) [Mass/Vol]NegativeNormalNegOhioHealth Berger HospitalComment on above:Performed By: #### 36908154, 4951130, 5220245, 3851489, 92748278, 6492766, 1672913, 4322736, 0968198, 02162652, 5208032 #### [facility] [address] [place], [place] [address]Ujdcpfm.plasma/[place].RBC (Bld) [Mass ratio]4-1Vaxajv3-3Dzxvpy [facility]. [facility] CenterComment on above:Performed By: #### 05555809, 5506768, 6177398, 9358363, 62835562, 9875000, 2273228, 5192852, 2016552, 59765505, 4384071 #### [facility] [address] [place], [place] [address]Vigoq Ql (Urine sed)TRACENormMansfield Hospital Comment on above:Performed By: #### 08954644, 1504269, 9757991, 5626522, 56771817, 7281667, 7703343, 0377127, 1574537, 46769945, 4698806 #### [facility] [address] [place], [place] [address]Mathdoc Ql (U)NegativeNormalNegOhioHealth Berger Hospital Comment on above:Performed By: #### 37350532, 6517876, 4294846, 2481990, 31369593, 6489687, 9770182, 7529321, 8471967, 62588060, 9663244 #### [facility] [address] [place], [place] [address]vM (U)6.0 [pH]5.0-9.0[facility] Medical CenterComment on above:Performed By: #### 38232961, 6122994, 1634690, 6286643, 29670309, 5582548, 4423187, 1537833, 7345916, 94369261, 0748637 #### [facility] [address] [place] [address]Ndozkws (U) [Mass/Vol]NegativeNormalNegativeKettering Health Behavioral Medical CenterComment on above:Performed By: #### 43484453, 5791436, 5308078, 3411165, 26445237, 4938293, 6053383, 5643120, 9244476, 84701415, 2291255 #### [facility] [address] [place] [address]Msyejqwn gravity (U) [Rel density]1.0101.005-1.030[facility] Medical CenterComment on above:Performed By: #### 17183639, 0378128, 7514362, 4365269, 24555582, 9457639, 4139073, 6064752, 3677962, 75987750, 3960454 #### [facility] [address] [place], [place] [address]LO Spec DescClean CatchNormMansfield HospitalComment on above:Performed By: #### 21145255, 2897451, 0083666, 9883213, 20361574, 0386315, 1267901, 1147717, 6606436, 07705436, 9544548 #### [facility] [address] [place], [place] [address]Klodkrfzwtxk Qn (U)0.2 {Carmella'U}/dLNormal0.0-1.0[facility] Medical CenterComment on above:Performed By: #### 42864730, 7003276, 4548987, 2160870, 58582360, 2851937, 5191471, 4768134, 5591330, 49814868, 3944044 #### [facility] [address] [place], [place] [address]IAX Auto Ql (U)NegativeNormalNegativeKettering Health Behavioral Medical CenterComment on above:Performed By: #### 26273245, 2547331, 3764421, 1734945, 58984538, 8876798, 1319090, 9123318, 8709840, 28667806, 1098451 #### [facility] [address] [place], [place] [address]ZWE LM.HPF (Urine sed) [#/Area]1-1Vnfldk3-6OpfgjlCentervilleComment on above:Performed By: #### 36933112, 7708046, 7163341, 1706633, 11673052, 8263641, 7035312, 6115992, 1896798, 56390532, 0525858 #### [facility] [address] [place], [place] [address]UQ Chest Single Viewon 10-80-9351XO Chest Single ViewExam Date/Time: 09/13/2018 23:44 EDT [...] Sanjay Alcocer M.D. Transcribed by: minoo Technologist: APNoalKettering Health Behavioral Medical CenterXR FOOT LEFT (MIN 3 VIEWS)on 63-41-5675HD FOOT LEFT (MIN 3 VIEWS)Radiology exam is complete. No Radiologist dictation. Please follow up with ordering provider. Final resultNormalLety [facility] CenterXR FOOT RIGHT (MIN 3 VIEWS)on 51-35-0204DL FOOT RIGHT (MIN 3 VIEWS)Radiology exam is complete. No Radiologist dictation. Please follow up with ordering provider. Final resultNormalLety [facility] Medical CentereGFRon 06-55-8799VFL/1.73 sq M predicted among blacks MDRD (S/P/Bld) [Vol rate/Area]mL/min/{1.73_m2}Normal>=59[facility] Medical CenterComment on above:Order Comment: Order added by Discern Expert.Result Comment: eGFR is race adjusted. AA=.Performed By: #### 69345383, 2682595, 2805017, 3561278, 18269357, 6329794, 7499551, 5334414, 2704379, 18143521, 7222810 #### [facility] [address] [place], [place] [address]HKP/1.73 sq M predicted among non-blacks MDRD (S/P/Bld) [Vol rate/Area]mL/min/{1.73_m2}Normal>=59[facility] Medical CenterComment on above: Order Comment: Order added by Discern Expert.Result Comment: Chronic kidney disease could be indicated at eGFR's of less than 60 mL/min/1.73m2. Kidney failure is indicated at less than 15 mL/min/1.73m2.Performed By: #### 99880164, 0590058, 8044311, 9032767, 86065685, 8667869, 2333465, 5093919, 5626136, 06252752, 2081498 #### [facility] [address] [place] [address] Vital Signs Date TimeVital SignValuePerforming YcsgqtvrwQjphxczy65-16-7730 11:52-0400Body mensqhezymf97.6 [degF]Tab May MD Work Phone: [facility] [employer] Ljnizm94-83-7341 11:52-0400Body weight 131.81 kgTab May MD Work Phone: 1(086)[address] [place], [place] 3316710-22-2025 11:52-0400Diastolic blood cfoerdgd01 mm[Hg]Tab May MD Work Phone: 1(123)[address] [place], [place] 3316710-22-2025 11:52-0400Heart rate95 /Keshia May MD Work Phone: 1(938)[address] [place], [place] 3316710-22-2025 11:52-0400Respiratory rate18 /Keshia May MD Work Phone: 1(001)[address] [place], [place] 3316710-22-2025 11:52-6501AvG0% (BldA) [Mass fraction]96 %Tab May MD Work Phone: 1(406)[address] [place], [place] 3316710-22-2025 11:52-0400Systolic blood kbvoysvy151 mm[Hg]Tab May MD Work Phone: 1(335)[address] [place], [place] 3316710-21-2025 09:08-0400Diastolic blood gngrvrug18 mm[Hg]Gay Britt REAL ESTATE OPERATIONS MANAGER-C Work Phone: 1(702)955-[address] [place], [place] 4534210-21-2025 09:08-0400 Heart rate82 /minPamela Britt REAL ESTATE OPERATIONS MANAGER-C Work Phone: 1(329)[address] [place], [place] 2087810-21-2025 09:08-0400 SaO2% (BldA) [Mass fraction]97 %Gay Britt REAL ESTATE OPERATIONS MANAGER-C Work Phone: 1(187)592-[address] [place], [place] 4534210-21-2025 09:08-0400 Systolic blood mm[Hg]Gay Britt REAL ESTATE OPERATIONS MANAGER-C Work Phone: 1(031)586-[address] [place], [place] 4534210-10-2025 17:29-0400 Diastolic blood atrapdlk16 mm[Hg]Gay Britt REAL ESTATE OPERATIONS MANAGER-C Work Phone: 1(460)302-[address] [place], [place] 4534210-10-2025 17:29-0400 Heart rate84 /minPamela Britt REAL ESTATE OPERATIONS MANAGER-C Work Phone: 1(545)612-[address] [place], [place] 4534210-10-2025 17:29-0400 Respiratory rate16 /minPamela Britt REAL ESTATE OPERATIONS MANAGER-C Work Phone: 1(419)[address]10-10-2025 17:29-0400 SaO2% (BldA) [Mass fraction]97 %Gay Britt REAL ESTATE OPERATIONS MANAGER-C Work Phone: 1(419)[address]10-10-2025 17:29-0400 Systolic blood mm[Hg]Gay Britt REAL ESTATE OPERATIONS MANAGER-C Work Phone: 1(419)[address] [place], [place] 2087810-10-2025 15:06-0400 Body .18 cmPamela Britt REAL ESTATE OPERATIONS MANAGER-C Work Phone: 1(419)[address] [place], [place] 2087810-10-2025 15:06-0400 Body .4 [degF]Gay Britt REAL ESTATE OPERATIONS MANAGER-C Work Phone: 1(419)[address] [place], [place] 2087810-10-2025 15:06-0400 Body bgryit531.27 kgPamela Britt REAL ESTATE OPERATIONS MANAGER-C Work Phone: 1(419)[address] [place], [place] 2087810-08-2025 13:34-0400 Body mlkbge177.18 cmPamela Britt REAL ESTATE OPERATIONS MANAGER-C Work Phone: 1(419)[address] [place], [place] 2087810-08-2025 13:34-0400 Body mass index (BMI) [Ratio]43.8 kg/w0Ekfqpw Britt REAL ESTATE OPERATIONS MANAGER-C Work Phone: 1(419)[address] [place], [place] 2087810-08-2025 13:34-0400 Body wpcrli140 kgPamela Britt REAL ESTATE OPERATIONS MANAGER-C Work Phone: 1(419)[address] [place], [place] 2087810-08-2025 13:34-0400 Diastolic blood gpfrfjav18 mm[Hg]Gay Britt REAL ESTATE OPERATIONS MANAGER-C Work Phone: 1(419)[address] [place], [place] 2087810-08-2025 13:34-0400 Heart rate99 /minPamela Britt REAL ESTATE OPERATIONS MANAGER-C Work Phone: 1(419)[address] [place], [place] 2087810-08-2025 13:34-0400 Respiratory rate18 /minPamela Britt REAL ESTATE OPERATIONS MANAGER-C Work Phone: 1(419)[address] [place], [place] 2087810-08-2025 13:34-0400 SaO2% (BldA) [Mass fraction]95 %Gay De La Torre REAL ESTATE OPERATIONS MANAGER-C Work Phone: [facility]10-08-2025 13:34-0400 Systolic blood wlexxbbt938 mm[Hg]Gay De La Torre REAL ESTATE OPERATIONS MANAGER-C Work Phone: [phone]10-08-2025 09:25-0400 Body dxeebd851.2 Bruno Pacheco MD Work Phone: 1(005)[address] [place], [place] 0215510-08-2025 09:25-0400Body mass index (BMI) [Ratio]45.58 kg/z2YvfrlqTerence Pacheco MD Work Phone: 1(323)[address] [place], [place] 0215510-08-2025 09:25-0400Body kg Terence Pacheco MD Work Phone: 1(301)[address] [place], [place] 0215510-08-2025 09:25-0400Diastolic blood ewfqntcz05 mm[Hg]Terence Pacheco MD Work Phone: 1(819)[address] [place], [place] 0215510-08-2025 09:25-0400Systolic blood yqqkvxnf318 mm[Hg]Terence Pacheco MD Work Phone: 1(136)[address] [place], [place] 0215509-24-2025 09:42-0400Body ecdodd055.18 cmPkendrick De La Torre REAL ESTATE OPERATIONS MANAGER-C Work Phone: [facility]09-24-2025 09:42-0400 Diastolic blood xedigkfa68 mm[Hg]Gay De La Torre REAL ESTATE OPERATIONS MANAGER-C Work Phone: [facility]09-24-2025 09:42-0400 Heart rate65 /minPafrancesco De La Torre REAL ESTATE OPERATIONS MANAGER-C Work Phone: [facility]09-24-2025 09:42-0400 SaO2% (BldA) [Mass fraction]97 %Gay De La Torre REAL ESTATE OPERATIONS MANAGER-C Work Phone: [facility]09-24-2025 09:42-0400 Systolic blood lexrdtsq963 mm[Hg]Gay Britt REAL ESTATE OPERATIONS MANAGER-C Work Phone: 1(270)844-[address] [place], [place] 4534209-10-2025 11:40-0400 Diastolic blood yipjqhzn87 mm[Hg]Gay Britt REAL ESTATE OPERATIONS MANAGER-C Work Phone: 1(284)367-[address] [place], [place] 4534209-10-2025 11:40-0400 Heart rate86 /minPajessea Britt REAL ESTATE OPERATIONS MANAGER-C Work Phone: 1(365)114-[address] [place], [place] 4534209-10-2025 11:40-0400 Respiratory rate18 /minPajessea Britt REAL ESTATE OPERATIONS MANAGER-C Work Phone: 1(994)[address]09-10-2025 11:40-0400 SaO2% (BldA) [Mass fraction]94 %Gay Britt REAL ESTATE OPERATIONS MANAGER-C Work Phone: 1(713)[address]09-10-2025 11:40-0400 Systolic blood yxurcdax132 mm[Hg]Gay Britt REAL ESTATE OPERATIONS MANAGER-C Work Phone: 1(393)[address]09-10-2025 10:11-0400 Body zbescu426.18 cmPamela Britt REAL ESTATE OPERATIONS MANAGER-C Work Phone: 1(403)585-[address] [place], [place] 4534209-10-2025 10:11-0400 Body zispkg719 kgPamela Britt REAL ESTATE OPERATIONS MANAGER-C Work Phone: 1(135)[address]09-03-2025 14:20-0400 Diastolic blood usyxmzoe48 mm[Hg]Chair Rainsville Work Phone: [facility]09-03-2025 14:20-0400Heart rate82 /min Chair Rainsville Work Phone: [facility]09-03-2025 14:20-0400Respiratory rate 18 /minChair Rainsville Work Phone: [facility]09-03-2025 14:20-6201AbE8% (BldA) [Mass fraction]98 %Chair Rainsville Work Phone: [facility]09-03-2025 14:20-0400Systolic blood bayjxdmn890 mm[Hg]Chair Rainsville Work Phone: [facility]09-03-2025 10:42-0400Body temperature 97.81 [degF]Chair Seo Work Phone: [facility]08-27-2025 10:38-0400Body ldinxm619.18 Hilton Johnmer REAL ESTATE OPERATIONS MANAGER-C Work Phone: 5(966)368-[address] [place], [place] 4534208-27-2025 10:38-0400 Diastolic blood firkckhi66 mm[Hg]Gay Johnmer REAL ESTATE OPERATIONS MANAGER-C Work Phone: 1(935)686-[address] [place], [place] 4534208-27-2025 10:38-0400 Heart rate92 /minPafrancesco Johnmer REAL ESTATE OPERATIONS MANAGER-C Work Phone: 1(141)607-[address] [place], [place] 4534208-27-2025 10:38-0400 SaO2% (BldA) [Mass fraction]96 %Gay Johnmer REAL ESTATE OPERATIONS MANAGER-C Work Phone: 7(723)046-[address] [place], [place] 4534208-27-2025 10:38-0400 Systolic blood vdisgamq560 mm[Hg]Gay Johnmer REAL ESTATE OPERATIONS MANAGER-C Work Phone: 1(874)176-[address] [place], [place] 4534208-21-2025 13:51-0400 Body rxwwfrrzrwy20.29 [degF]Chair Seo Work Phone: [facility]08-21-2025 13:51-0400Diastolic blood pqsgfeqb39 mm[Hg]Chair Seo Work Phone: [facility]08-21-2025 13:51-0400Heart rate76 /min Chair Gabbi Work Phone: [facility]08-21-2025 13:51-0400Respiratory rate 20 /minChair Gabbi Work Phone: [facility]08-21-2025 13:51-3795WkR4% (BldA) [Mass fraction]98 %Chair Seo Work Phone: [facility]08-21-2025 13:51-0400Systolic blood proamcfr990 mm[Hg]Chair Rainsville Work Phone: [facility]07-24-2025 14:10-0400Diastolic blood vfeccosd05 mm[Hg]Chair Rainsville Work Phone: [facility]07-24-2025 14:10-0400Heart rate83 /min Chair Rainsville Work Phone: [facility]07-24-2025 14:10-0400Respiratory rate 18 /minChair Rainsville Work Phone: [facility]07-24-2025 14:10-3746OxT4% (BldA) [Mass fraction]96 %Chair Gabbi Work Phone: [facility]07-24-2025 14:10-0400Systolic blood vzhssdif384 mm[Hg]Chair Gabbi Work Phone: [facility]07-22-2025 10:45-0400Body cuxrga543.18 cmPamela Britt REAL ESTATE OPERATIONS MANAGER-C Work Phone: 1(319)774-[address] [place], [place] 4534207-22-2025 10:45-0400 Body mass index (BMI) [Ratio]44.8 kg/v8Xhbbbr Britt REAL ESTATE OPERATIONS MANAGER-C Work Phone: 1(220)116-[address] [place], [place] 4534207-22-2025 10:45-0400 Body nbuacx788.72 kgPamela Britt REAL ESTATE OPERATIONS MANAGER-C Work Phone: 1(174)568-[address] [place], [place] 4534207-22-2025 10:45-0400 Diastolic blood jirvgjot52 mm[Hg]Gay Britt REAL ESTATE OPERATIONS MANAGER-C Work Phone: 1(534)195-[address] [place], [place] 4534207-22-2025 10:45-0400 Heart rate63 /minPajessea Britt REAL ESTATE OPERATIONS MANAGER-C Work Phone: 5(797)447-[address] [place], [place] 4534207-22-2025 10:45-0400 Systolic blood wqzcoijg850 mm[Hg]Gay Britt REAL ESTATE OPERATIONS MANAGER-C Work Phone: 1(788)421-[address] [place], [place] 4534207-10-2025 09:08-0400 Diastolic blood hxsqeldl42 mm[Hg]Gay Britt REAL ESTATE OPERATIONS MANAGER-C Work Phone: [facility]07-10-2025 09:08-0400 Heart rate64 /minGay Johnmer REAL ESTATE OPERATIONS MANAGER-C Work Phone: [facility]07-10-2025 09:08-0400 SaO2% (BldA) [Mass fraction]98 %Gay De La Torre REAL ESTATE OPERATIONS MANAGER-C Work Phone: [facility]07-10-2025 09:08-0400 Systolic blood ybjexuxy549 mm[Hg]Gay De La Torre REAL ESTATE OPERATIONS MANAGER-C Work Phone: [facility]07-09-2025 14:46-0400 Body omwzvljykio53.81 [degF]Chair Gabbi Work Phone: [facility]07-09-2025 14:46-0400Diastolic blood ukynxvqf64 mm[Hg]Chair Rainsville Work Phone: [facility]07-09-2025 14:46-0400Heart rate77 /min Chair Rainsville Work Phone: [facility]07-09-2025 14:46-0400Respiratory rate 18 /minChair Rainsville Work Phone: [facility]07-09-2025 14:46-1044WuV7% (BldA) [Mass fraction]98 %Chair Gabbi Work Phone: [facility] CompanyComment on above:[id number] 14:46-0400Systolic blood lqsqgojm257 mm[Hg]Chair Rainsville Work Phone: [facility]07-09-2025 09:13-0400Body .2 cmVaibhav Carvalho WEATHER TEACHER.BIRD SITTER Work Phone: [facility]07-09-2025 09:13-0400Body mass index (BMI) [Ratio]45.12 kg/d3NbyeyzVaibhav Carvalho WEATHER TEACHER.BIRD SITTER Work Phone: [facility]07-09-2025 09:13-0400Body temperature 97.5 [degF]Vaibhav Deven WEATHER TEACHER.BIRD SITTER Work Phone: [facility]07-09-2025 09:13-0400Body cijmpf143.7 kgMarvelimee Deven WEATHER TEACHER.BIRD SITTER Work Phone: [facility]07-09-2025 09:13-0400Diastolic blood mm[Hg]Vaibhav Deven WEATHER TEACHER.BIRD SITTER Work Phone: [facility]07-09-2025 09:13-0400Heart rate88 /min Vaibhav Deven WEATHER TEACHER.BIRD SITTER Work Phone: [facility]07-09-2025 09:13-0400Respiratory rate 18 /minMarvelimee Deven WEATHER TEACHER.BIRD SITTER Work Phone: [facility]07-09-2025 09:13-1063BgG3% (BldA) [Mass fraction]98 %Vaibhav Deven WEATHER TEACHER.BIRD SITTER Work Phone: [facility]07-09-2025 09:13-0400Systolic blood vmsxydzc915 mm[Hg]Vaibhav Deven WEATHER TEACHER.BIRD SITTER Work Phone: [facility]06-26-2025 13:47-0400Body temperature 98.01 [degF]Chair Rainsville Work Phone: [facility]06-26-2025 13:47-0400Diastolic blood xnmzbakw06 mm[Hg]Chair Rainsville Work Phone: [facility]06-26-2025 13:47-0400Heart rate89 /min Chair Rainsville Work Phone: [facility]06-26-2025 13:47-0400Respiratory rate 20 /minChair Gabbi Work Phone: [facility]06-26-2025 13:47-6839LsI2% (BldA) [Mass fraction]97 %Chair Rainsville Work Phone: [facility]06-26-2025 13:47-0400Systolic blood ixhvgnvo407 mm[Hg]Chair Rainsville Work Phone: [facility]06-23-2025 11:17-0400Body kcjavr700.18 cmPkendrick Britt REAL ESTATE OPERATIONS MANAGER-C Work Phone: 4(055)569-[address] [place], [place] 4534206-23-2025 11:17-0400 Body mass index (BMI) [Ratio]44.1 kg/v7Uwuijm Britt REAL ESTATE OPERATIONS MANAGER-C Work Phone: 1(669)297-[address] [place], [place] 4534206-23-2025 11:17-0400 Body zhqrja999.91 kgPajessea Britt REAL ESTATE OPERATIONS MANAGER-C Work Phone: 1(067)333-[address] [place], [place] 4534206-23-2025 11:17-0400 Diastolic blood fanirnqs21 mm[Hg]Gay Britt REAL ESTATE OPERATIONS MANAGER-C Work Phone: 1(795)607-[address] [place], [place] 4534206-23-2025 11:17-0400 Heart rate96 /minGay Britt REAL ESTATE OPERATIONS MANAGER-C Work Phone: 1(021)025-[address] [place], [place] 4534206-23-2025 11:17-0400 Systolic blood kwlcjazn232 mm[Hg]Gay Britt REAL ESTATE OPERATIONS MANAGER-C Work Phone: 1(699)328-[address] [place], [place] 4534206-10-2025 14:46-0400 Diastolic blood mm[Hg]Chair Rainsville Work Phone: [facility]06-10-2025 14:46-0400Heart rate68 /min Chair Rainsville Work Phone: [facility]06-10-2025 14:46-0400Respiratory rate 20 /minChair Rainsville Work Phone: [facility]06-10-2025 14:46-1214IoC8% (BldA) [Mass fraction]94 %Chair Gabbi Work Phone: [facility] CompanyComment on above:[id number] 14:46-0400Systolic blood trrgvuud173 mm[Hg]Chair Rainsville Work Phone: [facility]06-10-2025 09:19-0400Body temperature 97.81 [degF]Chair Rainsville Work Phone: [facility]05-14-2025 14:16-0400Body mass index (BMI) [Ratio]44.01 kg/v3Rvtkh Rainsville Work Phone: [facility]05-14-2025 14:16-0400Body temperature 97.59 [degF]Chair Rainsville Work Phone: [facility]05-14-2025 14:16-0400Body ysdezm223.5 kgChair Gabbi Work Phone: [facility]05-14-2025 14:16-0400Diastolic blood taroelky81 mm[Hg]Chair Rainsville Work Phone: [facility]05-14-2025 14:16-0400Heart rate85 /min Chair Rainsville Work Phone: [facility]05-14-2025 14:16-0400Respiratory rate 16 /minChair Gabbi Work Phone: [facility]05-14-2025 14:16-2235GeX5% (BldA) [Mass fraction]96 %Chair Gabbi Work Phone: [facility]05-14-2025 14:16-0400Systolic blood cnxhyzon087 mm[Hg]Chair Rainsville Work Phone: [facility]05-12-2025 14:15-0400Body temperature 98.29 [degF]Chair Rainsville Work Phone: [facility]05-12-2025 14:15-0400Diastolic blood gdbbjmok67 mm[Hg]Chair Gabbi Work Phone: [facility]05-12-2025 14:15-0400Heart rate76 /min Chair [place] Work Phone: [facility]05-12-2025 14:15-0400Respiratory rate 16 /minChair Gabbi Work Phone: [facility]05-12-2025 14:15-8420RqS7% (BldA) [Mass fraction]97 %Chair [place] Work Phone: [facility]05-12-2025 14:15-0400Systolic blood yciikczk803 mm[Hg]Chair Gabbi Work Phone: [facility]04-28-2025 13:20-0400Body temperature 97.59 [degF]Chair Gabbi Work Phone: [facility]04-28-2025 13:20-0400Diastolic blood uiutrnwg86 mm[Hg]Chair [place] Work Phone: [facility]04-28-2025 13:20-0400Heart zmku409 /minChair Gabbi Work Phone: [facility]04-28-2025 13:20-0400Respiratory rate 18 /minChair Gabbi Work Phone: [facility] [facility] 13:20-9496XmO4% (BldA) [Mass fraction]97 %Chair Gabbi Work Phone: [facility]04-28-2025 13:20-0400Systolic blood yomicrui659 mm[Hg]Chair Gabbi Work Phone: [facility]04-16-2025 16:17-0400Heart rate90 /min Gay De La Torre REAL ESTATE OPERATIONS MANAGER-C Work Phone: [facility]04-16-2025 16:17-0400 SaO2% (BldA) [Mass fraction]97 %Gay De La Torre REAL ESTATE OPERATIONS MANAGER-C Work Phone: [facility]04-16-2025 13:54-0400 Diastolic blood lxjnehlf38 mm[Hg]Chair Gabbi Work Phone: [facility]04-16-2025 13:54-0400Heart rate90 /min Chair [place] Work Phone: [place] [address]-16-2025 13:54-0400Respiratory rate 18 /minChair Gabbi Work Phone: [place] [address]-16-2025 13:54-8099TlI9% (BldA) [Mass fraction]97 %Chair Gabbi Work Phone: [place] [address]-16-2025 13:54-0400Systolic blood irduubmn490 mm[Hg]Chair Gabbi Work Phone: [place] [address]-16-2025 08:43-0400Body yppwmx392.2 cmJaimee Deven WEATHER TEACHER.BIRD SITTER Work Phone: [place] [address]-16-2025 08:43-0400Body mass index (BMI) [Ratio]45.5 kg/s1Pdiqby Deven WEATHER TEACHER.BIRD SITTER Work Phone: [place] [address]-16-2025 08:43-0400Body temperature 97.5 [degF]Vaibhav Deven WEATHER TEACHER.BIRD SITTER Work Phone: [place] [address]-16-2025 08:43-0400Body .8 kgJaimee Deven WEATHER TEACHER.BIRD SITTER Work Phone: [place] [address]-16-2025 08:43-0400Diastolic blood mm[Hg]Vaibhav Deven WEATHER TEACHER.BIRD SITTER Work Phone: [place] [address]-16-2025 08:43-0400Heart rate77 /min Vaibhav Deven WEATHER TEACHER.BIRD SITTER Work Phone: [place] [address]-16-2025 08:43-0400Respiratory rate 18 /minJaimee Deven WEATHER TEACHER.BIRD SITTER Work Phone: [place] [address]-16-2025 08:43-5284MgC3% (BldA) [Mass fraction]97 %Vaibhav Deven WEATHER TEACHER.BIRD SITTER Work Phone: [place] [address]-16-2025 08:43-0400Systolic blood mm[Hg]Vaibhav Hernandezjulia DODSONBIRD SITTER Work Phone: [facility]04-14-2025 15:04-0400Body lxltbe361.2 cmGordo Barfield MD Work Phone: [facility] CenterXttdrqlimr27-33-8893 15:04-0400Body mass index (BMI) [Ratio]44.32 kg/q1QatonbGordo Barfield MD Work Phone: [place] [address]Jynounrupr29-17-8951 15:04-0400Body vhqkqo493.37 kgGordo Barfield MD Work Phone: [place] [address]Phmytrrzlt43-14-9711 15:04-0400Diastolic blood ynkfsogb37 mm[Hg]Gordo Barfield MD Work Phone: [facility] CenterIreokvwyfr28-97-9582 15:04-0400Heart slqy186 /min Gordo Barfield MD Work Phone: [place] [address]Aolnivyylt78-66-4421 15:04-0400Systolic blood oqkaigpx125 mm[Hg]Gordo Barfield MD Work Phone: [place] [address]Ubtscmyyco29-06-0899 14:36-0400Diastolic blood szkjhyod47 mm[Hg]Chair Gabbi Work Phone: [facility]03-18-2025 14:36-0400Heart rate83 /min Chair [place] Work Phone: [facility]03-18-2025 14:36-0400Respiratory rate 18 /minChair [place] Work Phone: [place] [address]-18-2025 14:36-4011ChZ3% (BldA) [Mass fraction]97 %Chair [place] Work Phone: [place] [address]-18-2025 14:36-0400Systolic blood lemzocvp580 mm[Hg]Chair Gabbi Work Phone: [place] [address]-18-2025 10:54-0400Body temperature 98.01 [degF]Chair Seo Work Phone: [facility]03-10-2025 16:05-0400Diastolic blood mm[Hg]Gay Britt REAL ESTATE OPERATIONS MANAGER-C Work Phone: [facility]03-10-2025 16:05-0400 Heart iern100 /minPafrancesco Johnmer REAL ESTATE OPERATIONS MANAGER-C Work Phone: [facility]03-10-2025 16:05-0400 SaO2% (BldA) [Mass fraction]96 %Gay Britt REAL ESTATE OPERATIONS MANAGER-C Work Phone: [facility]03-10-2025 16:05-0400 Systolic blood hegrxkmp139 mm[Hg]Gayomer Johnmer REAL ESTATE OPERATIONS MANAGER-C Work Phone: [facility]03-05-2025 15:06-0500 Body dcqcef453.2 cmLois Holm MD Work Phone: 1(085)198-[address] [place], [place] 3801803-05-2025 15:06-0500 Body mass index (BMI) [Ratio]44.92 kg/f8YanyynLois Holm MD Work Phone: 6(936)316-[address] [place], [place] 3801803-05-2025 15:06-0500 Body zfqnok153.09 kgLois Holm MD Work Phone: 9(933)922-[address] [place], [place] 3801803-05-2025 15:06-0500 Diastolic blood allcuccv34 mm[Hg]Lois Holm MD Work Phone: 1(086)940-[address] [place], [place] 3801803-05-2025 15:06-0500 Heart rate84 /minLois Holm MD Work Phone: [address] [place], [place] 7237303-05-2025 15:06-0500 Systolic blood owaomggo601 mm[Hg]Lois Holm MD Work Phone: [facility]02-26-2025 11:27-0500 Diastolic blood wtiscpxy32 mm[Hg]Gay De La Torre REAL ESTATE OPERATIONS MANAGER-C Work Phone: [facility]02-26-2025 11:27-0500 Heart rate78 /minGay Britt REAL ESTATE OPERATIONS MANAGER-C Work Phone: 1(510)948-[address] [place], [place] 4534202-26-2025 11:27-0500 Respiratory rate16 /minPajessea Rbitt REAL ESTATE OPERATIONS MANAGER-C Work Phone: 1(839)311-[address] [place], [place] 4534202-26-2025 11:27-0500 SaO2% (BldA) [Mass fraction]96 %Gay De La Torre REAL ESTATE OPERATIONS MANAGER-C Work Phone: 1(578)120-[address] [place], [place] 4534202-26-2025 11:27-0500 Systolic blood jbvuhbvp694 mm[Hg]Gay Britt REAL ESTATE OPERATIONS MANAGER-C Work Phone: 1(691)850-[address] [place], [place] 4534202-26-2025 09:54-0500 Body ewgqdt589.18 cmPamela Britt REAL ESTATE OPERATIONS MANAGER-C Work Phone: 1(519)166-[address] [place], [place] 4534202-26-2025 09:54-0500 Body kimcbe610 kgPamela Britt REAL ESTATE OPERATIONS MANAGER-C Work Phone: 1(302)835-[address] [place], [place] 4534202-19-2025 14:16-0500 Body hmmnmfwbngi17.91 [degF]Marky Gasca PA-C Work Phone: [facility]02-18-2025 14:30-0500Body temperature 97.39 [degF]Chair Gabbi Work Phone: [facility]02-18-2025 14:30-0500Diastolic blood mm[Hg]Chair [place] Work Phone: [facility]02-18-2025 14:30-0500Heart rate69 /min Chair [place] Work Phone: [facility]02-18-2025 14:30-0500Respiratory rate 18 /minChair Gabbi Work Phone: [facility]02-18-2025 14:30-3648XiL7% (BldA) [Mass fraction]98 %Chair [place] Work Phone: [place] [address]-18-2025 14:30-0500Systolic blood bzbfylna872 mm[Hg]Chair Gabbi Work Phone: [facility]02-17-2025 15:25-0500Diastolic blood niscewcf26 mm[Hg][facility]02-17-2025 15:25-0500Heart xynw733 /minC[facility]02-17-2025 15:25-0636OqF4% (BldA) [Mass fraction]97 %[facility]02-17-2025 15:25-0500 Systolic blood dcsllylv707 mm[Hg][facility]01-21-2025 14:55-0500Diastolic blood dogcxbfq92 mm[Hg]Chair Gabbi Work Phone: [facility]01-21-2025 14:55-0500Heart rate70 /min Chair Gabbi Work Phone: [facility]01-21-2025 14:55-0500Respiratory rate 18 /minChair [place] Work Phone: [facility]01-21-2025 14:55-8968ZnO9% (BldA) [Mass fraction]98 %Chair Gabbi Work Phone: [facility]01-21-2025 14:55-0500Systolic blood ptvmlxif87 mm[Hg]Chair Gabbi Work Phone: [facility]01-21-2025 08:55-0500Body mass index (BMI) [Ratio]45.08 kg/n7IzankhVaibhav Carvalho WEATHER TEACHER.BIRD SITTER Work Phone: [facility]01-21-2025 08:55-0500Body temperature 97.59 [degF]Vaibhav Carvalho WEATHER TEACHER.BIRD SITTER Work Phone: [facility]01-21-2025 08:55-0500Body mdxvmo071.6 kgVaibhav Carvalho WEATHER TEACHER.BIRD SITTER Work Phone: [facility]01-21-2025 08:55-0500Diastolic blood syueiudw01 mm[Hg]Vaibhav Deven WEATHER TEACHER.BIRD SITTER Work Phone: [facility]01-21-2025 08:55-0500Heart rate79 /min Vaibhav Deven WEATHER TEACHER.BIRD SITTER Work Phone: [facility]01-21-2025 08:55-0500Respiratory rate 16 /minVaibhav Hernandezod WEATHER TEACHER.BIRD SITTER Work Phone: [facility]01-21-2025 08:55-0171GeU0% (BldA) [Mass fraction]98 %Vaibhav Deven WEATHER TEACHER.BIRD SITTER Work Phone: [facility]01-21-2025 08:55-0500Systolic blood qnfyjvpa207 mm[Hg]Vaibhav Deven WEATHER TEACHER.BIRD SITTER Work Phone: [facility]01-14-2025 11:37-0500Body mass index (BMI) [Ratio]45.08 kg/m2Oly WARREN Work Phone: [facility] CenterNjeamuqwhv28-77-1424 11:37-0500Body .54 kgOly WARREN Work Phone: [facility] CenterHtlyrcqhku78-71-0120 11:37-0500Diastolic blood vhbunnrq49 mm[Hg]Oly WARREN Work Phone: [facility] CenterFusqiuokrz60-79-3032 11:37-0500Systolic blood feusohlp595 mm[Hg]Oly WARREN Work Phone: [facility] CenterEkndgqgfuc25-75-8586 15:02-0500Body temperature 97.3 [degF]Chair Gabbi Work Phone: [facility]12-27-2024 15:02-0500Diastolic blood zukdhmki09 mm[Hg]Chair Gabbi Work Phone: [facility]12-27-2024 15:02-0500Heart rate73 /min Chair Gabbi Work Phone: [facility]12-27-2024 15:02-0500Respiratory rate 20 /minChair Gabbi Work Phone: [facility]12-27-2024 15:02-4775CbW2% (BldA) [Mass fraction]98 %Chair Gabbi [facility] CompanyComment [facility]:[id number] 15:02-0500Systolic blood vgampnsu004 mm[Hg]Chair [place] Work Phone: [facility]12-04-2024 09:31-0500Body temperature 97.59 [degF]Ma Joanna Work Phone: [facility]12-04-2024 09:31-0500Diastolic blood ljejdjeu10 mm[Hg]Ma Sand [facility]: [facility] Company[facility]:Dekivr30-71-9999 09:31-0500Heart rate66 /minMa Sand Work Phone: [facility]12-04-2024 09:31-0500Respiratory rate 16 /minMa Sand Work Phone: [facility]12-04-2024 09:31-2280WnU7% (BldA) [Mass fraction]99 %Ma Joanna Work Phone: [facility]12-04-2024 09:31-0500Systolic blood fmurvmgi147 mm[Hg]Ma Sand [facility] Company[facility]:Meuiux79-33-6372 10:12-0500Body bjjzca848.2 cmGordo Barfield MD Work Phone: [place] [address]Xvpjugukek36-79-2277 10:12-0500Body mass index (BMI) [Ratio]44.95 kg/r2AqfkbpGordo Barfield MD Work Phone: [place] [address]Ijlagjshvb42-90-1176 10:12-0500Body xbbgvy916.18 kgHielyse Barfield MD Work Phone: [place] [address]Iybhlrauxx30-38-4096 10:12-0500Diastolic blood fvicnglf25 mm[Hg]Gordo Barfield MD Work Phone: [facility] CenterFpcuyrydpp58-62-6939 10:12-0500Systolic blood afbncpej866 mm[Hg]Gordo Barfield MD Work Phone: [facility] CenterIaprbaikgv73-25-3836 10:00-0500Body mfkydh267.2 cmHayden Arciniega MD Work Phone: 1(760)[facility]11-14-2024 10:00-0500Body mass index (BMI) [Ratio]43.07 kg/y5OueyibeHayden Arciniega MD Work Phone: 1(107)[facility]11-14-2024 10:00-0500Body omzmpnaznez39 [degF]Hayden Arciniega MD Work Phone: 1(454)[facility]11-14-2024 10:00-0500Body ovbllm020.74 kgMojose Arciniega MD Work Phone: 1(600)[facility]11-14-2024 10:00-0500Diastolic blood tbvjkeny57 mm[Hg]Hayden Arciniega MD Work Phone: 1(657)[facility]11-14-2024 10:00-0500Heart rate 86 /minMojose Arciniega MD Work Phone: 1(798)[facility]11-14-2024 10:00-1424IfK6% (BldA) [Mass fraction]97 %Hayden Arciniega MD Work Phone: 1(126)[facility]11-14-2024 10:00-0500Systolic blood mm[Hg]Hayden Arciniega MD Work Phone: 1(202)[facility]11-10-2024 13:27-0500Body mass index (BMI) [Ratio]45.42 kg/m2Marky Nichols DO Work Phone: [facility] HospitalWkcgzaaygg02-29-8723 13:27-0500Body temperature 98.71 [degF]Marky Nichols DO Work Phone: noSam[facility] HospitalWkpbbaergi05-79-2631 13:27-0500Body nxqisx187.54 kgPatennille Nichols DO Work Phone: noSam[facility] HospitalYmulawtzvt30-25-8448 13:27-0500Diastolic blood plkrepow63 mm[Hg]Marky Nichols DO Work Phone: noSam[facility] HospitalVvtuqlnncn06-44-6165 13:27-0500Heart rate78 /min Marky Nichols DO Work Phone: [place] [address]Wamduxvhpe12-92-9965 13:27-0791UtZ2% (BldA) [Mass fraction]99 %Marky Nichols DO Work Phone: noSam[facility] HospitalYtbpzbksxm21-02-5803 13:27-0500Systolic blood tkelxsrq977 mm[Hg]Marky Nichols DO Work Phone: noSam[facility] HospitalPjoudfvrdn07-67-3131 14:35-0400Body mass index (BMI) [Ratio]44.17 kg/m2Amy Modesto PA Work Phone: [facility] CenterKavnjdicxu90-93-1701 14:35-0400Body .91 kgOly Sotoey PA Work Phone: [facility] CenterGrgeptrigb46-44-3754 14:35-0400Diastolic blood ivcytxwh72 mm[Hg]Oly Temo PA Work Phone: noSam[facility] HospitalOeffihjnrk22-26-0921 14:35-0400Systolic blood paaolurx517 mm[Hg]Oly Modesto PA Work Phone: [facility] CenterDumcvqenlz15-71-8236 10:11-0400Body .2 cmMa Sand Work Phone: [facility]10-31-2024 10:11-0400Body mass index (BMI) [Ratio]43.06 kg/m2Ma Sand Work Phone: [facility]10-31-2024 10:11-0400Body temperature 97.59 [degF]Ma Sand Work Phone: [facility]10-31-2024 10:11-0400Body usmmin348.74 kgMa Sand Work Phone: [facility]10-31-2024 10:11-0400Diastolic blood ipqdohgq79 mm[Hg]Ma Sand Work Phone: [facility]10-31-2024 10:11-0400Heart rate71 /min Ma Sand Work Phone: [facility]10-31-2024 10:11-0400Respiratory rate 16 /minHoda Sand Work Phone: [facility]10-31-2024 10:11-7462KiK1% (BldA) [Mass fraction]94 %Ma Sand Work Phone: [facility]10-31-2024 10:11-0400Systolic blood httahizs860 mm[Hg]Ma Sand Work Phone: [facility]10-24-2024 11:24-0400Body mass index (BMI) [Ratio]43.67 kg/i8Xlpnu Skip DO Work Phone: [facility] CenterWfpeafxigp39-31-9085 11:24-0400Body akdkdj409.46 kgCorey Skip DO Work Phone: [facility] CenterPzddieprex91-17-1700 11:24-0400Diastolic blood mm[Hg]Luan Skip DO Work Phone: [facility] CenterMpqzuiqpmm41-32-3248 11:24-0400Systolic blood zlkfiazx529 mm[Hg]Luan Skip DO Work Phone: [facility] CenterOppoutlewh31-51-0251 09:20-0400Body fkvecz670.18 cmNP-C Gay De La Torre Work Phone: [facility]10-24-2024 09:20-0400 Body mass index (BMI) [Ratio]43 kg/m2NP-C Gay De La Torre Work Phone: [facility]10-24-2024 09:20-0400 Body qvjlmy823.73 kgNP-C Gay De La Torre Work Phone: [facility]09-30-2024 11:04-0400 Body mgyevjgjsfv18.2 [degF]Ma Sand Work Phone: [facility]09-30-2024 11:04-0400Diastolic blood ulesffbw56 mm[Hg]Ma Sand Work [facility]: [facility] CompanyComment [facility] above:iskacq13-90-5088 11:04-0400Heart rate95 /minMa Sand Work Phone: [facility]09-30-2024 11:04-0400Respiratory rate 16 /minMa Sand Work Phone: [facility]09-30-2024 11:04-4328EtT9% (BldA) [Mass fraction]98 %Ma Sand Work Phone: [facility]09-30-2024 11:04-0400Systolic blood gupylwqg071 mm[Hg]Ma Sand Work Phone: [facility] CompanyComment on above:evikyq70-78-1364 09:23-0400Diastolic blood fllijucy08 mm[Hg]REAL ESTATE OPERATIONS MANAGER-C Gay De La Torre Work Phone: 1(923)700-[address] [place], [place] 4534209-25-2024 09:23-0400 Heart rate70 /minNP-C Gay De La Torre Work Phone: 1(490)429-[address] [place], [place] 4534209-25-2024 09:23-0400 Respiratory rate16 /minNP-C Gay De La Torre Work Phone: 1(855)820-[address] [place], [place] 4534209-25-2024 09:23-0400 SaO2% (BldA) [Mass fraction]96 %REAL ESTATE OPERATIONS MANAGER-C Gay De La Torre Work Phone: 1(740)519-[address] [place], [place] 4534209-25-2024 09:23-0400 Systolic blood bvccgsuo100 mm[Hg]REAL ESTATE OPERATIONS MANAGER-C Gay De La Torre Work Phone: 1(449)906-[address] [place], [place] 4534209-25-2024 07:27-0400 Body gevche921.18 cmNP-C Gay De La Torre Work Phone: 1(775)308-[address] [place], [place] 4534209-25-2024 07:27-0400 Body ifjkrz677.46 kgNP-C Gay De La Torre Work Phone: [facility]09-06-2024 11:31-0400 Body .6 kgC[facility]09-06-2024 11:31-0400 Diastolic blood soarclrb28 mm[Hg][facility]09-06-2024 11:31-0400Heart rate69 /minC[facility]09-06-2024 11:31-2920SeP3% (BldA) [Mass fraction]98 %[facility] 01-28-2024 11:31-0400Systolic blood yhkgdmsy203 mm[Hg][facility]09-03-2024 11:30-0400Body dcricsonmno68.39 [degF]Ma Sand Work Phone: [facility]09-03-2024 11:30-0400Diastolic blood ewsnajvx51 mm[Hg]Ma Sand Work Phone: [facility]09-03-2024 11:30-0400Heart rate68 /min Ma Sand Work Phone: [facility]09-03-2024 11:30-0400Respiratory rate 16 /minMa Sand Work Phone: [facility]09-03-2024 11:30-8799OfD7% (BldA) [Mass fraction]99 %Ma Sand Work Phone: [facility]09-03-2024 11:30-0400Systolic blood myirccsl72 mm[Hg]Ma Sand Work Phone: [facility]08-05-2024 11:16-0400Diastolic blood chosadev65 mm[Hg]Neda Hill PA-C Work Phone: [facility]08-05-2024 11:16-0400Systolic blood adfzlkhl02 mm[Hg]Neda Hill PA-C Work Phone: [facility]08-05-2024 11:02-0400Body srodqg512.2 cmNeda Hill PA-C Work Phone: [facility]08-05-2024 11:02-0400Body mass index (BMI) [Ratio]43.08 kg/n2Cpvsz Liz PA-C Work Phone: [facility]08-05-2024 11:02-0400Body temperature 97.7 [degF]Neda Rubioer PA-C Work Phone: [facility]08-05-2024 11:02-0400Body nnbpfe896.8 kgMinedy Rubioer PA-C Work Phone: [facility]08-05-2024 11:02-0400Heart rate89 /min Neda Rubioer PA-C Work Phone: [facility]08-05-2024 11:02-0400Respiratory rate 16 /minMinedy Rubioer PA-C Work Phone: [facility]08-05-2024 11:02-6170IdQ7% (BldA) [Mass fraction]98 %Neda Rubioer PA-C Work Phone: [facility]07-25-2024 14:13-0400Body .18 cmC[facility]07-25-2024 14:13-0400Body mass index (BMI) [Ratio]42.7 kg/k9SoitshwuiCinc[facility]'S Hospital [facility] Center07-25-2024 14:13-0400Body avgjafqewfd93.6 [degF][facility]07-25-2024 14:13-0400Body frxgoa937.83 kgCinc[facility]'S [facility]07-25-2024 14:13-0400Diastolic blood turnjbar02 mm[Hg][facility]07-25-2024 14:13-0400 Heart rate75 /minC[facility]S [facility]07-25-2024 14:13-0400Systolic blood qufbpkew344 mm[Hg][facility]07-08-2024 13:43-0400 Body fgndgaaupmw67.59 [degF]Ma Sand Work Phone: [facility]07-08-2024 13:43-0400Diastolic blood qpudpmjp75 mm[Hg]Ma Sand Work Phone: [facility]07-08-2024 13:43-0400Heart rate73 /min Ma Sand Work Phone: [facility]07-08-2024 13:43-0400Respiratory rate 16 /minMa Sand Work Phone: [facility]07-08-2024 13:43-6946LkD7% (BldA) [Mass fraction]96 %Ma Sand Work Phone: [facility]07-08-2024 13:43-0400Systolic blood uftoctic28 mm[Hg]Ma Sand Work Phone: [facility]06-13-2024 13:55-0400Body skufxf455.18 cmC[facility]06-13-2024 13:55-0400Body kfldfunpnyt67.3 [degF][facility]06-13-2024 13:55-0400Diastolic blood oaakpmid93 mm[Hg][facility]06-13-2024 13:55-0400Heart rate62 /minC[facility]06-13-2024 13:55-0400Systolic blood eihknaoe000 mm[Hg][facility]06-05-2024 14:44-0400Body fltejfgncae70 [degF]Ma Sand Work Phone: [facility]06-05-2024 14:44-0400Diastolic blood rxqckocy43 mm[Hg]Ma Sand Work Phone: [facility]06-05-2024 14:44-0400Heart rate97 /min Ma Sand Work Phone: [facility]06-05-2024 14:44-0400Respiratory rate 18 /minMa Sand Work Phone: [facility]06-05-2024 14:44-6576SxF9% (BldA) [Mass fraction]97 %Ma Sand Work Phone: [facility]06-05-2024 14:44-0400Systolic blood gchrnymd558 mm[Hg]Ma Sand Work Phone: [facility]05-29-2024 13:10-0400Body ymouhe939.18 cmCinc[facility]05-29-2024 13:10-0400Body mass index (BMI) [Ratio]43.2 kg/y7RcfpdinwcCinc[facility]'S Hospital [facility] Center05-29-2024 13:10-0400Body mmlhgrmojew54.3 [degF][facility]05-29-2024 13:10-0400Body doeuew343.19 kgC[facility]'S [facility]05-29-2024 13:10-0400Diastolic blood wfxadnou42 mm[Hg][facility]05-29-2024 13:10-0400 Heart rate74 /minC[facility]05-29-2024 13:10-0400Systolic blood dmdlbzul761 mm[Hg][facility]05-09-2024 10:48-0400 Body jqogkvesfpb55 [degF]Ma Sand Work Phone: [facility]05-09-2024 10:48-0400Diastolic blood jyuatfmh87 mm[Hg]Ma Sand Work Phone: [facility]05-09-2024 10:48-0400Heart rate71 /min Ma Sand Work Phone: [facility]05-09-2024 10:48-0400Respiratory rate 18 /minMa Sand Work Phone: [facility]05-09-2024 10:48-9067ZiG1% (BldA) [Mass fraction]97 %Ma Sand Work Phone: [facility]05-09-2024 10:48-0400Systolic blood yhschzjv852 mm[Hg]Ma Sand Work Phone: [facility]05-01-2024 14:41-0400Body bjexgp430.93 kgCinc[facility]'S [facility]04-09-2024 10:34-0400Body eupywmonxdp41.3 [degF]Ma Sand Work Phone: [place] [address]-09-2024 10:34-0400Diastolic blood mm[Hg]Ma Sand Work Phone: [place] [address]-09-2024 10:34-0400Heart rate68 /min Ma Sand Work Phone: [facility]04-09-2024 10:34-0400Respiratory rate 18 /minMa Sand Work Phone: [place] [address]-09-2024 10:34-1883JlJ8% (BldA) [Mass fraction]99 %Ma Sand Work Phone: [place] [address]-09-2024 10:34-0400Systolic blood taandjkz565 mm[Hg]Ma Sand Work Phone: [facility]03-14-2024 11:15-0400Body temperature 97.39 [degF]Ma Sand Work Phone: [facility]03-14-2024 11:15-0400Diastolic blood axuyiqhn20 mm[Hg]Ma Sand Work Phone: [place] [address]-14-2024 11:15-0400Heart rate68 /min Ma Sand Work Phone: [facility]03-14-2024 11:15-0400Respiratory rate 18 /minMa Sand Work Phone: [facility]03-14-2024 11:15-4695DfJ0% (BldA) [Mass fraction]98 %Ma Sand Work Phone: [facility]03-14-2024 11:15-0400Systolic blood bmqetgxi62 mm[Hg]Ma Sand Work Phone: [facility]02-20-2024 11:49-0500Body temperature 97.5 [degF]Ma Sand Work Phone: [facility]02-20-2024 11:49-0500Diastolic blood rizbdzot31 mm[Hg]Ma Sand Work Phone: [facility]02-20-2024 11:49-0500Heart rate83 /min Ma Sand Work Phone: [facility]02-20-2024 11:49-0500Respiratory rate 18 /minMa Sand Work Phone: [facility]02-20-2024 11:49-7738DsV6% (BldA) [Mass fraction]96 %Ma Sand Work Phone: [facility]02-20-2024 11:49-0500Systolic blood wcdskxgo216 mm[Hg]Ma Sand Work Phone: [facility]02-20-2024 10:01-0500Diastolic blood ubtzayef95 mm[Hg]Lois Holm MD Work Phone: [facility]02-20-2024 10:01-0500 Systolic blood igusnlsk801 mm[Hg]Lois Holm MD Work Phone: [facility]02-20-2024 09:41-0500 Body .2 cmLois Holm MD Work Phone: [facility]02-20-2024 09:41-0500 Body mass index (BMI) [Ratio]43.85 kg/q3GnttssLois Holm MD Work Phone: [facility]02-20-2024 09:41-0500 Body .01 kgLois Holm MD Work Phone: [facility]02-20-2024 09:41-0500 Heart rate71 /minLois Holm MD Work Phone: [facility]02-13-2024 14:48-0500 Body mass index (BMI) [Ratio]41.81 kg/c8SifountKade Early MD Work Phone: [id number] 14:48-0500Body rusrmd331.3 kgKade Early MD Work Phone: [facility] [id number] 08:45-0500Body wlfiao523.2 Melissa Jasmine [employer] Work Phone: [phone]01-17-2024 08:45-0500 Body mass index (BMI) [Ratio]44.48 kg/j9YpyfnMichelle Jasmine WEATHER TEACHER-BIRD SITTER Work Phone: [phone]01-17-2024 08:45-0500 Body bftmxo073.82 kgCarselene Jasmine WEATHER TEACHER-BIRD SITTER Work Phone: [phone] [place], [place] 2386701-17-2024 08:45-0500 Diastolic blood epcqerjy53 mm[Hg]Michelle Sharpeel WEATHER TEACHER-BIRD SITTER Work Phone: [phone]01-17-2024 08:45-0500 Heart rate80 /minFrankselene Jasmine WEATHER TEACHER-BIRD SITTER Work Phone: [phone] [place], [place] 2386701-17-2024 08:45-0500 Systolic blood wcsrettg668 mm[Hg]Michelle Jasmine WEATHER TEACHER-BIRD SITTER Work Phone: [phone])215-[address] [place], [place] 2386701-03-2024 17:17-0500 Body .83 kgChristie Phan MD Work Phone: [facility] CampusNppnjy86-61-1380 14:42-0500Body ecebiz240.19 kgChrsitie Phan MD Work Phone: [facility] CampusHjraqn20-92-9230 11:16-0400Body temperature 97.7 [degF]Ma Sand Work Phone: [facility]10-27-2023 11:16-0400Diastolic blood ryrwnfvr39 mm[Hg]Ma Sand Work Phone: [facility]10-27-2023 11:16-0400Heart rate75 /min Ma Sand Work Phone: [facility]10-27-2023 11:16-0400Respiratory rate 16 /minMa Sand Work Phone: [facility]10-27-2023 11:16-4542VpX3% (BldA) [Mass fraction]96 %Hoda Sand Work Phone: [facility]10-27-2023 11:16-0400Systolic blood mm[Hg]Hoda Sand Work Phone: [facility]09-29-2023 10:56-0400Body cltugc667.2 cmVana Najera MD Work Phone: [facility]09-29-2023 10:56-0400Body temperature 97.39 [degF]Vera Najera MD Work Phone: [facility]09-29-2023 10:56-0400Body edcqpf154.75 kgVera Najera MD Work Phone: [facility]09-29-2023 10:56-0400Diastolic blood nmmvocdv16 mm[Hg]Vera Najera MD Work Phone: [facility]09-29-2023 10:56-0400Heart vzqk939 /minVera Najera MD Work Phone: [facility]09-29-2023 10:56-0400Respiratory rate 16 /minVera Najera MD Work Phone: [facility]09-29-2023 10:56-8887TfO3% (BldA) [Mass fraction]96 %Vera Najera MD Work Phone: [facility]09-29-2023 10:56-0400Systolic blood abennuwi578 mm[Hg]Vera Najera MD Work Phone: [facility]09-01-2023 12:09-0400Diastolic blood wotjppzq01 mm[Hg]Hoda Sand Work Phone: [facility]09-01-2023 12:09-0400Systolic blood ayhhswtc586 mm[Hg]Hoda Sand Work Phone: [facility]09-01-2023 12:08-0400Body temperature 97.59 [degF]Ma Sand Work Phone: [facility]09-01-2023 12:08-0400Heart kkab183 /minMa Sand Work Phone: [facility]09-01-2023 12:08-0400Respiratory rate 16 /minMa Sand Work Phone: [facility]09-01-2023 12:08-7321JqG7% (BldA) [Mass fraction]97 %Ma Sand Work Phone: [facility]06-29-2023 11:00-0400Body temperature 97.2 [degF]Ma Sand Work Phone: [facility]06-29-2023 11:00-0400Diastolic blood ogtpqyrh61 mm[Hg]Ma Sand Work Phone: [facility]06-29-2023 11:00-0400Heart rate98 /min Ma Sand Work Phone: [facility]06-29-2023 11:00-0400Respiratory rate 16 /minMa Sand Work Phone: [facility]06-29-2023 11:00-8295JlF4% (BldA) [Mass fraction]98 %Ma Sand Work Phone: [facility]06-29-2023 11:00-0400Systolic blood ulogiqgj095 mm[Hg]Ma Sand Work Phone: [facility]06-01-2023 11:51-0400Body jyrpto221.2 cmMa Sand Work Phone: [facility]06-01-2023 11:51-0400Body frawka967.66 kgMa Sand Work Phone: [facility]06-01-2023 11:51-0400Respiratory rate 16 /minMa Sand Work Phone: [facility]06-01-2023 10:50-0400Body aytwkt774.2 Semaj Najera MD Work Phone: [facility]06-01-2023 10:50-0400Body temperature 97 [degF]Vera Najera MD Work Phone: [facility]06-01-2023 10:50-0400Body sjdxoy384.75 kgVera Najera MD Work Phone: [facility]06-01-2023 10:50-0400Diastolic blood woaufild95 mm[Hg]eVra Najera MD Work Phone: [facility]06-01-2023 10:50-0400Heart rate78 /min Vera Najera MD Work Phone: [facility]06-01-2023 10:50-0400Respiratory rate 16 /minVrea Najera MD Work Phone: [facility]06-01-2023 10:50-8266JtV5% (BldA) [Mass fraction]98 %Vera Najera MD Work Phone: [facility]06-01-2023 10:50-0400Systolic blood cawkelqf481 mm[Hg]Vera Najera MD Work Phone: [facility]05-04-2023 10:22-0400Body dinnjy886.2 cmMa Sand Work Phone: [facility]05-04-2023 10:22-0400Body temperature 97 [degF]Ma Sand Work Phone: [facility]05-04-2023 10:22-0400Body .2 kgMa Sand Work Phone: [facility]05-04-2023 10:22-0400Diastolic blood mm[Hg]Ma Sand Work Phone: [facility]05-04-2023 10:22-0400Heart rate77 /min Ma Sand Work Phone: [facility]05-04-2023 10:22-0400Respiratory rate 16 /minMa Sand Work Phone: [facility]05-04-2023 10:22-8102PqS5% (BldA) [Mass fraction]97 %Hoda Marshall Work Phone: [facility]05-04-2023 10:22-0400Systolic blood xlzvjziw719 mm[Hg]Hoda Marshall Work Phone: [facility]04-17-2023 14:03-0400Body cvtvau437.2 kgChristie Phan MD Work Phone: [facility] CampusBufyzf61-37-4437 09:45-0400Body epeank523.2 cmRebekah Rojas APRN.BIRD SITTER Work Phone: [facility]04-06-2023 09:45-0400Body temperature 97.7 [degF]Rebekah Rojas APRN.BIRD SITTER Work Phone: [facility]04-06-2023 09:45-0400Body .66 kgRebekah Rojas APRN.BIRD SITTER Work Phone: [facility]04-06-2023 09:45-0400Diastolic blood lzjycurj09 mm[Hg]Rebekah Rojas APRN.BIRD SITTER Work Phone: [facility]04-06-2023 09:45-0400Heart rate63 /min Rebekah Rojas APRN.BIRD SITTER Work Phone: [facility]04-06-2023 09:45-0400Respiratory rate 16 /minRebekah Rojas APRN.BIRD SITTER Work Phone: [facility]04-06-2023 09:45-6055WiF1% (BldA) [Mass fraction]96 %Rebekah Rojas APRN.BIRD SITTER Work Phone: [facility]04-06-2023 09:45-0400Systolic blood hfdqdumt581 mm[Hg]Rebekah Rojas APRN.BIRD SITTER Work Phone: [facility]12-28-2022 13:28-0500Body kmfedx646.2 Semaj Najera MD Work Phone: [facility]12-28-2022 13:28-0500Body temperature 97.7 [degF]Vera Najera MD Work Phone: [facility]12-28-2022 13:28-0500Diastolic blood euxfhnag88 mm[Hg]Vera Najera MD Work Phone: [facility]12-28-2022 13:28-0500Heart rate93 /min Vera Najera MD Work Phone: [facility]12-28-2022 13:28-0500Respiratory rate 16 /minVera Najera MD Work Phone: [facility]12-28-2022 13:28-6505RuS9% (BldA) [Mass fraction]97 %Vera Najera MD Work Phone: [facility]12-28-2022 13:28-0500Systolic blood qgeornuo595 mm[Hg]Vera Najera MD Work Phone: [facility]10-26-2022 10:49-0400Body acbgil550.2 cmVana Najera MD Work Phone: [facility]10-26-2022 10:49-0400Body temperature 97.81 [degF]Vera Najera MD Work Phone: [facility]10-26-2022 10:49-0400Body qhrahd479.4 kgVera Najera MD Work Phone: [facility]10-26-2022 10:49-0400Diastolic blood eofuitxd18 mm[Hg]Vera Najera MD Work Phone: [facility]10-26-2022 10:49-0400Heart rate86 /min Vera Najera MD Work Phone: [facility]10-26-2022 10:49-0400Respiratory rate 16 /minVera Najera MD Work Phone: [facility]10-26-2022 10:49-5018RjV9% (BldA) [Mass fraction]98 %Vera Najera MD Work Phone: [facility]10-26-2022 10:49-0400Systolic blood mm[Hg]Vera Najera MD Work Phone: [facility]10-17-2022 11:41-0400Body phrxxo064.2 cmChristie Phan MD Work Phone: [phone] HealthCare Main CampusCuntpy03-89-6347 11:41-0400Body uwjdke501.49 kgChristie Phan MD Work Phone: [phone] Main CampusSgljmt92-81-5293 11:41-0400Diastolic blood exjecpjc010 mm[Hg]Christie Phan MD Work Phone: [phone] Main CampusQadrkv16-15-8448 11:41-0400Systolic blood nfqpaxvv647 mm[Hg]Christie Phan MD Work Phone: c[facility] CampusQnaarn16-27-8562 10:39-0400Body roitfa120.2 Semaj Najera MD Work Phone: [facility]10-12-2022 10:39-0400Body temperature 97.5 [degF]Vera Najera MD Work Phone: [facility]10-12-2022 10:39-0400Body .76 kgVera Najera MD Work Phone: [facility]10-12-2022 10:39-0400Diastolic blood kvxiurws14 mm[Hg]Vera Najera MD Work Phone: [facility]10-12-2022 10:39-0400Heart rate79 /min Vera Najera MD Work Phone: [facility]10-12-2022 10:39-0400Respiratory rate 16 /minVera Najera MD Work Phone: [facility]10-12-2022 10:39-1287IiW0% (BldA) [Mass fraction]99 %Vera Najera MD Work Phone: [facility]10-12-2022 10:39-0400Systolic blood byvxrneb201 mm[Hg]Vera Najera MD Work Phone: [facility]07-06-2022 16:00-0400Body juqukt123.91 cmMichael Blank Other [employer] Other 07-06-2022 16:00-0400Body mass index (BMI) [Ratio] 37.68 kg/z1Rwltawg Blank Other [employer] Other 07-06-2022 16:00-0400Body mpwytnbewci37.4 [degF] Mirela Baer Other [employer] Other 07-06-2022 16:00-0400Body guwmyn403.5 kgMichael Blank Other [employer] Other 07-06-2022 16:00-0400Diastolic blood zrhmwhko37 mm[Hg] Mirela Baer Other [employer] Other 07-06-2022 16:00-0400Systolic blood lwvubebd541 mm[Hg] Mirela Baer Other [employer] Other 06-03-2022 08:18-0400Body pyregv496.86 kgLynne Ni MD Work Phone: [facility]06-03-2022 08:18-0400Diastolic blood tyidelzc34 mm[Hg]Lynne Ni MD Work Phone: [facility]06-03-2022 08:18-0400Heart rate72 /min Lynne Ni MD Work Phone: [facility]06-03-2022 08:18-0400Systolic blood phnzjngi385 mm[Hg]Lynne Ni MD Work Phone: [facility]05-25-2022 15:45-0400Body yhnwxb000.91 cmMichael Blank Other [employer] Other 05-25-2022 15:45-0400Body mass index (BMI) [Ratio] 38.31 kg/z1Cklwqdr Blank Other [employer] Other 05-25-2022 15:45-0400Body zjotytbbjtt11.1 [degF] Mirela Baer Other [employer] Other 05-25-2022 15:45-0400Body pojbuk327.32 kgMichael Blank Other [employer] Other 05-25-2022 15:45-0400Diastolic blood mm[Hg] Mirela Baer Other [employer] Other 05-25-2022 15:45-0400Systolic blood mm[Hg] Mirela Baer Other [employer] Other 04-21-2022 15:15-0400Body impxpi817.91 cmMichael Blank Other [employer] Other 04-21-2022 15:15-0400Body mass index (BMI) [Ratio] 37.99 kg/b3Oiexvtr Blank Other [employer] Other 04-21-2022 15:15-0400Body iiyibusxnlb93.9 [degF] Mirela Baer Other [employer] Other 04-21-2022 15:15-0400Body buzgqt771.41 kgMichael Buffy Other [employer] Other 04-21-2022 15:15-0400Diastolic blood ieuwktzs74 mm[Hg] Mirela Baer Other [employer] Other 04-21-2022 15:15-0400Systolic blood mm[Hg] Mirela Baer Other [employer] Other 05-17-2021 12:45-0400Diastolic blood ukhwpzkl75 mm[Hg] [facility] Work Phone: 1(550) 237-214305-17-2021 12:45-0400Heart rate68 /minStv [facility] Work Phone: 1(286) 939-887405-17-2021 12:45-4829JpU8% (BldA) [Mass fraction]99 % [facility] Work Phone: 1(745) 385-791605-17-2021 12:45-0400Systolic blood vxbgdslu501 mm[Hg] [facility] Work Phone: 1(458) 616-596505-17-2021 10:45-0400Respiratory rate22 /minStv [facility] Work Phone: 1(167) 673-135305-17-2021 09:01-0400Body dhvnho571.2 cmStv [facility] Work Phone: 1(338) 475-924205-17-2021 09:01-0400Body mass index (BMI) [Ratio] 36.65 kg/m2Stv [facility] Work Phone: 1(146) 526-158805-17-2021 09:01-0400Body bpjoepgadjz41.81 [degF]Stv A [facility] Work Phone: 1(195) 404-472005-17-2021 09:01-0400Body hgiqxp615.14 kgStv [facility] Work Phone: Encounters Encounter DateEncounter TypeCare ProviderFacilityStart: 03-21-2025 End: 32-57-9924rxbotjkdieIHFPXEE M HOYFacility:[facility] HospitalStart: 03-21-2025 End: 54-51-6365hxsufbobjqMSWUW ABHYANKARFacility:[facility]art: 03-14-2025 End: 55-51-5436Hxhijt outpatient new 60 minutesTab May MD Work Phone: [facility] Infectious DiseaseComment on above:Nipple discharge in female (Primary Dx); Type 2 diabetes mellitus with other specified complication, unspecified whether termite control representative insulin use; Obesity with serious comorbidity in pediatric patient, unspecified obesity class, unspecified obesity type; IgG deficiency; Recurrent infections; Pilonidal abscess; Tobacco use disorderStart: 99-41-8107fwrtwqoosaDRQTAM S COXHEALTHDAVIANGreater [facility] HospitalStart: 03-13-2025 End: 52-04-5201kqsmtdbhraKpdqjp Sue Cramer REAL ESTATE OPERATIONS MANAGER-C Work Phone: [phone]-Uhhkrpdwg Health Pain MgmtStart: 03-13-2025 End: 33-70-1952Bcvdden encounter procedureShertobi Kang MD-[facility] Work Phone: Start: 03-09-2025 End: 72-83-5359sgutrllvppRsnnop Sue Cramer REAL ESTATE OPERATIONS MANAGER-C Work Phone: -LAB Path Spec [facility] HospStart: 03-09-2025 End: 80-74-3776Ldmkgunc ReferredGay De La Torre BIRD SITTER-LAB Path Spec [place] HospStart: 03-03-2025 End: 13-87-8530fxatannsjaXjahmk Sue Cramer REAL ESTATE OPERATIONS MANAGER-C Work Phone: [facility] Work Phone: Start: 03-03-2025 End: 76-83-7557Izctkqcv ReferredJose Hays DO-[facility] Start: 03-02-2025 End: 50-16-3799Calhqdsqp to same day surgery Pau Blum MD-[facility] HospitalStart: 03-02-2025 End: 92-58-0572lvttjgsiaeMerxmg Sue Cramer REAL ESTATE OPERATIONS MANAGER-C Work Phone: [facility] Work Phone: Start: 03-02-2025 End: 07-71-1543Fypzfuau Result EncounterTerence Blum MD Work Phone: n[facility] External Department UnsolicitedStart: 03-02-2025 End: 52-54-9940Rwzkyide Result EncounterTerence Pacheco MD Work Phone: noms External Department UnsolicitedStart: 02-28-2025 End: 19-08-9521xyqklsugtgOafdom Sue Cramer REAL ESTATE OPERATIONS MANAGER-C Work Phone: [facility] Work Phone: Start: 02-28-2025 End: 93-29-3186Qjkhwcf encounter procedureBandar Batista [facility] Work Phone: Start: 02-28-2025 End: 24-12-7356Uridsx outpatient new 45 minutesTerence Blum MD Work Phone: [facility] AssociatesComment on above:Pilonidal abscess (Primary Dx); Pilonidal cystStart: 02-28-2025 End: 58-29-5142ftjmdfafkkKAFWTS VARGAS VNot AvailableStart: 02-26-2025 End: 73-22-2009izojyckydtCrytec Sue Cramer REAL ESTATE OPERATIONS MANAGER-C Work Phone: [facility] Work Phone: Start: 02-26-2025 End: 29-17-2192Yaddujgr ReferredMathew Ji MD-[facility] [place] [facility] Start: 02-21-2025 End: 65-96-0519rhxnxgkgygVOCMIGF M HOYFacility:[facility] Hospitaltart: 02-14-2025 End: 02-23-9973Avotja outpatient visit 15 minutesEmjennifer English MD Work Phone: [facility] [place] DermatologyComment on above:Pilonidal cyst (Primary Dx); Hidradenitis suppurativaStart: 02-14-2025 End: 86-16-6413jopckwynxxJQVTM A PETITTINot AvailableStart: 02-14-2025 End: 73-90-3591Nkegfv flowsheetEmjennifer English MD Work Phone: [facility] [place] [facility]ermatologyStart: 02-14-2025 End: 06-75-6219Yldqrh flowsheetBernabe English MD Work Phone: [facility] [place] DermatologyStart: 02-14-2025 End: 26-93-4307lxbtjyjykrPcwpin Sue Cramer REAL ESTATE OPERATIONS MANAGER-C Work Phone: [facility] Work Phone: Start: 02-14-2025 End: 73-87-9647Nyvtjbf encounter procedureMargie Arnett NP-[facility] Work Phone: Start: 02-08-2025 End: 91-51-8129kkczahkrwdXLPTNPVQ TSAIFacility:[facility] Hospitaltart: 01-31-2025 End: 37-25-5566Udswvhwba to same day surgery centerSbobbi Kang MD-[facility] Work Phone: Start: 01-31-2025 End: 88-95-5964zrhvbrtpiqGwsfzh Sue Cramer REAL ESTATE OPERATIONS MANAGER-C Work Phone: [phone] [place] [address] Work Phone: Start: 25-32-6811Zdd-patient / Non-visitSbobbi Kang MD-[facility] Work Phone: Start: 01-26-2025 End: 39-89-2317ptgsbzfheeNKI TITIKULWINDERNot AvailableStart: 01-24-2025 End: 05-32-3017nbztgqjuuzSltjx [address] [place] Work Phone: Hematology/OncologyComment on above:Frequent infections (Primary Dx); Hypogammaglobulinemia (HCC); Bilateral leg weakness; Discoid lupus erythematosus; Elevated sed rate; Megaloblastic anemia due to vitamin B12 deficiencyStart: 01-18-2025 End: 04-39-2198Hhpquvezh encounterLynne Ni MD Work Phone: RheumatologyComment on above:ResultsStart: 01-17-2025 End: 11-01-4645uhrhjrgkyhWetiuz Sue Cramer REAL ESTATE OPERATIONS MANAGER- Work Phone: [facility] Work Phone: Start: 01-17-2025 End: 78-18-8747Madbcwk encounter procedureMargie Arnett [facility] Work Phone: Start: 01-11-2025 End: 30-16-1710jbhdccrdmnKleoz [address] [place] Work Phone: Hematology/OncologyComment on above:Other systemic lupus erythematosus with other organ involvement (HCC) (Primary Dx); Elevated LFTs; Anemia of chronic disease; Elevated sed rate; Elevated C-reactive protein (CRP); Vitamin D deficiency; Vitamin B12 deficiency; Screening-pulmonary TBStart: 12-27-2024 End: 05-45-1361hryhdxearaEGRXX ABHYANKARFacility:[facility] Hospitaltart: 12-14-2024 End: 63-80-7958Aobxf [facility] Main Work Phone: NeurologyComment on above:CMNStart: 12-14-2024 End: 93-04-4803hoipaohjteVgvbt [address] [place] Work Phone: Hematology/OncologyComment on above:Other systemic lupus erythematosus with other organ involvement (HCC) (Primary Dx)Start: 12-12-2024 End: 26-25-0688Curvtij encounter procedureBandar Batista APRN-[facility] Work Phone: Start: 11-30-2024 End: 09-07-2443Wnqoip-up encounterVaibhav Carvalho APRN.CNP Work Phone: Hematology/OncologyComment on above:ResultsStart: 11-30-2024 End: 09-61-3805zcavpxxjyfDspjdn Sue Cramer NP-C Work Phone: [facility] Work Phone: Start: 11-30-2024 End: 06-87-9444Hgzdnex encounter procedureMargie Arnett NP-[facility] Work Phone: Start: 11-29-2024 End: 45-17-5186Wtydvb outpatient visit 25 minutesVaibhav Carvalho APRNANGELA Work Phone: Hematology/OncologyComment on above: Hypogammaglobulinemia (HCC) (Primary Dx); Vitamin B12 deficiency; Other iron deficiency anemia; Malaise and fatigue; Shortness of breath; Other specified disorders of breast; Pre-diabetes; Gastro-esophageal reflux disease without esophagitisStart: 11-29-2024 End: 08-59-6282invyikvblzRsgzk [address] [place] Work Phone: Hematology/OncologyComment on above:Elevated sed rate (Primary Dx); Megaloblastic anemia due to vitamin B12 deficiency; Frequent infections; Hypogammaglobulinemia (HCC); Bilateral leg weakness; Discoid lupus erythematosusStart: 11-23-2024 End: 53-80-5572Dheclh outpatient visit 25 minutesMelissa WARREN Work Phone: [facility] DERMComment on above:Hidradenitis suppurativa (Primary Dx); Pain; Acne vulgarisStart: 11-23-2024 End: 59-79-7451vtjikfyvyeACZUA NORTHEIMNot AvailableStart: 15-44-1639ektgdypouc Janes Bazancility:[facility] Hospitaltart: 11-22-2024 Registered Sofia BABB CredibleStart: 11-21-2024 End: 51-16-8928kcefymuyumZwbmri Sue Cramer NP-C Work Phone: [facility] Work Phone: Start: 11-21-2024 End: 01-28-1232Yqjbmms encounter procedureSbobbi Kang MD-[facility] Work Phone: Start: 93-35-0519Kyl-patient / Non-visitSbobbi Kang MD-[facility] Work Phone: Start: 11-20-2024 End: 91-67-9977Tfiplizyy encounterVaibhav Carvalho APRN.CNP Work Phone: Hematology/OncologyComment on above:Lab OrdersStart: 11-16-2024 End: 03-49-4740qhbixcfmjrEegmx [address] [place] Work Phone: Hematology/OncologyComment on above:Other systemic lupus erythematosus with other organ involvement (HCC) (Primary Dx)Start: 11-15-2024 End: 11-73-1451Wkzwobmeg encounterSandhya Whalen [facility] Work Phone: HOSPITAL PHARMACY HB-3Start: 11-13-2024 End: 12-66-1465Vocrbbl encounter procedureSbobbi Kang MD-[facility] Work Phone: Start: 10-31-2024 End: 05-53-0234stvorprcynWrksl [address] [place] Work Phone: Hematology/OncologyComment on above:Elevated sed rate (Primary Dx); Megaloblastic anemia due to vitamin B12 deficiency; Frequent infections; Hypogammaglobulinemia (HCC); Bilateral leg weakness; Discoid lupus erythematosusStart: 10-19-2024 End: 37-27-4984fgedcshzefOnhor [address] [place] Work Phone: Hematology/OncologyComment on above:Other systemic lupus erythematosus with other organ involvement (HCC) (Primary Dx)Start: 10-17-2024 End: 92-17-8116vbqgmdsiemSKYDAFH Lynne Sharroncility:[facility] Hospitaltart: 10-07-2024 End: 41-91-6499Vvxyopl encounter procedureLynne Ni MD Work Phone: [facility] CentermatologyComment on above:Other systemic lupus erythematosus with other organ involvement (HCC) (Primary Dx); Vitamin D deficiency; Fibromyalgia; CHRISTIAN positive; Elevated sed rate; Vitamin B12 deficiency; Secondary osteoarthritis of multiple sites; Chronic bilateral low back pain with bilateral sciatica; Chronic pain of toes of both feet; Long-term use of high-risk medication; 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; Bilateral hand pain; Family history of Crohn's disease; 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; Bilateral wrist painStart: 10-07-2024 End: 32-42-0421Kryfypqwnnbk consultation with Jyothi Ni MD Work Phone: eumatologyStart: 10-07-2024 End: 18-30-1658ivdruamevhSGDRBCG M HOYFacility:[facility] Hospitaltart: 10-06-2024 End: 43-29-4747Mxvpycmcz encounterLynne Ni MD Work Phone: [facility] CentermatologyComment on above:ResultsStart: 2024 End: 95-70-9888bmclmqaslpOgfwi 14 [employer] Work Phone: Hematology/OncologyComment on above:Other systemic lupus erythematosus with other organ involvement (HCC) (Primary Dx)Start: 10-02-2024 End: 78-37-4554vdlcaghbrcXzmmq 2 [employer] Work Phone: Hematology/OncologyComment on above:Frequent infections (Primary Dx); Hypogammaglobulinemia (HCC); Bilateral leg weakness; Discoid lupus erythematosus; Elevated sed rate; Megaloblastic anemia due to vitamin B12 deficiency; Elevated LFTs; Anemia of chronic disease; Elevated C-reactive protein (CRP); Vitamin D deficiencyStart: 09-20-2024 End: 19-92-3168Nvwjtnkbl PharmacyCalhugo Quintanilla [facility] Specialty PharmacyComment on above:SPP Inflammatory Conditions - Medication Refill (Benlysta)Start: 09-19-2024 End: 06-85-6891tnpilypsupFGMVH YADAVFacility:[facility] HospitalStart: 09-19-2024 End: 10-22-2773Gklrdoy encounter Ligia Arroyo [facility] Work Phone: [employer] MAIN WALKERComment on above:Fibromyalgia (Primary Dx); Family history of disease of aorta; Family history of cancerGeneralized articular hypermobility (Primary Dx); Chronic pain syndrome; Discoid lupus erythematosus; Family history of pneumothorax in son; Family history of cancer; Family history of mild aortic dilation in daughterStart: 09-19-2024 End: 40-09-5885qdgpqedqmhRDHKJVAT TSAIFacility:[facility] Hospitaltart: 09-18-2024 End: 78-55-0403Dwfoeltvw encounterVera Najera MD Work Phone: Cancer Appts MCComment on above:Future Appointment Start: 09-18-2024 End: 46-48-1324tccugqgyvmHldfy [address] [place] Work Phone: Hematology/OncologyComment on above:Other systemic lupus erythematosus with other organ involvement (HCC) (Primary Dx)Refill RequestStart: 09-07-2024 End: 99-07-2962Kqfzid-up encounterVaibhav Carvalho APRN.CNP Work Phone: Hematology/OncologyComment on above:ResultsStart: 09-06-2024 End: 62-06-6443Htmahaj encounter Gamal Kang MD-[facility] Work Phone: Start: 09-06-2024 End: 30-44-7536Thdoepidb encounterFearnaldo Samuel RNHematology/OncologyComment on above:Medication Preauthorization; AppointmentStart: 09-06-2024 End: 77-85-8987vksgcjwyqxDsedr [address] [place] Work Phone: Hematology/OncologyComment on above:Frequent infections (Primary Dx); Hypogammaglobulinemia (HCC); Bilateral leg weakness; Discoid lupus erythematosus; Elevated sed rate; Megaloblastic anemia due to vitamin B12 deficiencyStart: 09-06-2024 End: 44-92-2168Hnbgdx outpatient visit 25 minutesVaibhav Carvalho WEATHER TEACHER.BIRD SITTER Work Phone: Hematology/OncologyComment on above: Hypogammaglobulinemia (HCC) (Primary Dx); Vitamin B12 deficiency; Other iron deficiency anemia; Megaloblastic anemia due to vitamin B12 deficiencyStart: 09-06-2024 End: 00-83-5987xffunhrhogRGRWBR ROJULIAFacility:[facility] Hospitaltart: 09-04-2024 End: 19-28-1926Cynidx outpatient visit 25 minutesGordo Barfield MD Work Phone: noms ENT [facility] MEDICAL CENTERKComment on above:Thyroid nodule (CMS/HCC) (Primary Dx); LPRD (laryngopharyngeal reflux disease)Start: 09-04-2024 End: 11-18-1017aeoqdhqvyzMPYBME H TIMMISNot AvailableStart: 09-04-2024 End: 47-32-3314Vsgfftfernanda Barfield MD Work Phone: noms ENT TANNERKStart: 09-04-2024 End: 01-73-5250Sbiyeumaranda Barfield MD Work Phone: noms ENT TANNERKStart: 09-01-2024 End: 98-43-0770AryafnNugusljy Tsai MD Work Phone: RheumatologyComment on above:Refill RequestStart: 08-29-2024 End: 57-73-5691xnqgbaegghPUPGJNW M HOYFacility:[facility] Hospitaltart: 08-28-2024 End: 43-44-9451Ezzlemmwq encounterVaibhav Carvalho WEATHER TEACHER.BIRD SITTER Work Phone: Hematology/OncologyComment on above:Lab OrdersStart: 08-24-2024 End: 18-12-6948Exxvvlslz Result EncounterGordo Barfield MD Work Phone: noms External Department UnsolicitedStart: 08-24-2024 End: 48-73-1322Yzrjgbvxl Result EncounterGordo Barfield MD Work Phone: noms External Department UnsolicitedStart: 08-22-2024 End: 96-43-3343xjkrbhtfdmGbbuoj Sue Cramer REAL ESTATE OPERATIONS MANAGER-C Work Phone: [facility] Work Phone: Start: 08-22-2024 End: 13-39-2329Wucsrkl encounter procedureGay LINC Work Phone: [facility] Work Phone: Start: 08-17-2024 End: 35-76-7349Dabmcntzq PharmacyCalhugo Quintanilla [facility] Specialty PharmacyComment on above:SPP Inflammatory Conditions - Medication Refill (Benlysta)Start: 08-08-2024 End: 70-12-1661Wybqycfcr encounterFelicclaritza Samuel RNHematology/OncologyComment on above:Patient QuestionStart: 08-08-2024 End: 83-46-3255othxwpjpsiXtsjl Quinn Gabbi Work Phone: Hematology/OncologyComment on above:Elevated sed rate (Primary Dx); Megaloblastic anemia due to vitamin B12 deficiency; Frequent infections; Hypogammaglobulinemia (HCC); Bilateral leg weakness; Discoid lupus erythematosusStart: 08-03-2024 End: 89-73-0007JpegrzUnow Rozman PA-C Work Phone: OtolaryngologyComment on above:Med Change Request Start: 07-31-2024 End: 50-05-1678jjxxjqcrbxWexxjbSandy LINC Work Phone: [facility] Work Phone: Start: 07-31-2024 End: 58-90-1220Exldeql encounter procedureGay LINC Work Phone: [facility] Work Phone: Start: 07-26-2024 End: 91-15-6091Nemfcy outpatient visit 25 minutesLois Holm MD Work Phone: [facility] HospitalComment on above:Sinus tachycardia (Primary Dx); Shortness of breath; Paroxysmal supraventricular tachycardia (CMS-HCC); Essential hypertension; Obstructive sleep apnea syndrome; Morbid obesity (Multi); Current smokerStart: 07-26-2024 End: 64-87-7781uobvmlqspcLHJHMG M [facility] AmbulatoryStart: 07-25-2024 End: 02-89-1495Zkcwff flowsheetEmjennifer English MD Work Phone: noms SWS DERMStart: 07-25-2024 End: 42-64-5195Qdeohv flowsheetEmjennifer English MD Work Phone: noms [facility] DERMStart: 07-25-2024 End: 89-98-8630Pgqggo outpatient visit 25 minutesEmjennifer English MD Work Phone: noms [facility] DERMComment on above:Hidradenitis suppurativa (Primary Dx); Other seborrheic dermatitis; Lupus erythematosus tumidus (CMS/HCC); Rash and other nonspecific skin eruption; Capillary angioma; Neoplasm of uncertain behavior of skinStart: 07-25-2024 End: 58-85-4273Yijspcauq PharmacyCalhugo Quintanilla [facility] Specialty PharmacyComment on above:SPP Inflammatory Conditions - Medication Refill (Benlysta)Start: 07-20-2024 End: 48-58-9114Rzpvapixihip consultation with Mich Victoria DO Work Phone: Infectious DiseaseStart: 07-20-2024 End: 54-54-1684hfailtrqyuXritqmc Lehman DO Work Phone: Infectious DiseaseComment on above:Nipple discharge (Primary Dx); Other systemic lupus erythematosus with other organ involvement (HCC); On prednisone therapy; Long-term use of PlaquenilStart: 13-37-4686Bzb-patient / Non-visitGay De La Torre REAL ESTATE OPERATIONS MANAGER-C Work Phone: [facility] Work Phone: Start: 07-19-2024 End: 77-52-9852Ibrgielmg to same day surgery Yonny De La Torre REAL ESTATE OPERATIONS MANAGER-C Work Phone: [facility] Work Phone: Start: 07-19-2024 End: 50-71-6380bjiujshvutNljbtb Sue Cramer REAL ESTATE OPERATIONS MANAGER-C Work Phone: [facility] Work Phone: Start: 07-12-2024 End: 26-71-7745djtlkvuushNCIW ROZMANFacility:[facility] Hospitaltart: 07-12-2024 End: 78-11-8754Lxcvpaj encounter procedureMarky Gasca PA-C Work Phone: OtolaryngologyComment on above:LPRD (laryngopharyngeal reflux disease); Dry mouth; Current smoker; Abnormal mouth sensationStart: 07-11-2024 End: 36-04-4800qhjxbnjhdrUtmzt 3 [place] Work Phone: Hematology/OncologyComment on above:Elevated sed rate (Primary Dx); Megaloblastic anemia due to vitamin B12 deficiency; Frequent infections; Hypogammaglobulinemia (HCC); Bilateral leg weakness; Discoid lupus erythematosusStart: 07-10-2024 End: 49-78-2310foitzedqckAmhxlaiswDayton Osteopathic Hospital Work Phone: Start: 07-10-2024 End: 95-11-6198Arofcrd encounter procedureFormerly [facility] Physician [facility] Work Phone: Start: 07-09-2024 End: 34-91-2939Ddenpbzgy encounterLynne Ni MD Work Phone: RheumatologyComment on above:ResultsStart: 06-30-2024 End: 12-79-4005hinlkzwkvqOZJGGCQA TSAIFacility:[facility] Hospitaltart: 06-29-2024 End: 91-24-9526Gkcqrmnhx PharmacyCalhugo Quintanilla [facility] Specialty PharmacyComment on above:SPP Inflammatory Conditions - Medication Refill (Benlysta)Start: 06-20-2024 End: 26-94-5279sdabugykauOud ProviderCancer Appts MCComment on above:Iron InfusionsStart: 06-20-2024 End: 85-69-2668H-mail encounter from caregiverCcf ProviderCancer Appts MCStart: 06-20-2024 End: 68-57-6493Basddoi encounter procedureLynne Ni MD Work Phone: RheumatologyComment on above:FlairStart: 06-16-2024 End: 45-51-8403Isngqqpqx encounterVaibhav Carvalho APRN.CNP Work Phone: Hematology/OncologyStart: 06-15-2024 End: 37-27-3457Ucqenqyck encounterOly WARREN Work Phone: NOMS BCP OBStart: 06-14-2024 End: 47-33-2883Orbqkhw evaluation of patient and reportBreath Test Silverio Cp Nsg Wl Work Phone: [facility] Comment on above:Diarrhea, unspecified type (Primary Dx); Abdominal pressureStart: 06-13-2024 End: 20-44-5498Emznvm outpatient visit 25 minutesVaibhav Carvalho APRN.CNP Work Phone: Hematology/OncologyComment on above:Megaloblastic anemia due to vitamin B12 deficiency (Primary Dx); Hypogammaglobulinemia (HCC); Positive blood cultures; Malaise and fatigue; SOB (shortness of breath)Start: 06-13-2024 End: 29-58-7992kjzuubhdawUhwk M Freeman Art TherapistArts & MedicineComment on above:Art TherapyElevated sed rate (Primary Dx); Megaloblastic anemia due to vitamin B12 deficiency; Hypogammaglobulinemia (HCC); Frequent infections; Bilateral leg weakness; Discoid lupus erythematosusStart: 06-12-2024 End: 22-61-3963Pwjub [facility] Main Work Phone: NeurologyComment on above:CMNStart: 06-12-2024 End: 62-49-8109Urcezpuob encounterJamichelleozzy Deven RODRIGUEZ Work Phone: Hematology/OncologyComment on above:Lab OrdersStart: 06-06-2024 End: 22-87-7115Udctrk flowsheetOly WARREN Work Phone: noms BCP OBStart: 06-06-2024 End: 45-63-9783Owdvrn flowsheetOly WARREN Work Phone: noms BCP OBStart: 06-06-2024 End: 13-06-9000Zyslzhbyx Result EncounterOly WARREN Work Phone: noms External Department UnsolicitedStart: 06-06-2024 End: 16-17-1824Rgdziofur PharmacyCalhugo Quintanilla [facility] Specialty PharmacyComment on above:SPP Inflammatory Conditions - Medication Refill (Benlysta)Start: 06-06-2024 End: 40-95-7729Yvbqahv encounter procedureOly WARREN Work Phone: noms [facility] Work Phone: Start: 06-06-2024 End: 19-23-8494Glyqfeqp preventive med est patient 40-64yrsAmy Temo WARREN Work Phone: noms [facility] OBComment on above:Well woman exam with routine gynecological exam; Breast cancer screening by mammogram; Breast noduleStart: 05-19-2024 End: 97-72-3390sppyhfxhowRgqjh 3 Gabbi Work Phone: Hematology/OncologyComment on above:Frequent infections (Primary Dx); Megaloblastic anemia due to vitamin B12 deficiency; Elevated sed rate; Hypogammaglobulinemia (HCC); Bilateral leg weakness; Discoid lupus erythematosusStart: 05-16-2024 End: 25-24-9789Kbvoxr Leighozzy Deven RODRIGUEZ Work Phone: Hematology/OncologyStart: 05-15-2024 End: 25-35-0325Ohwozd WorkLori Addison [facility] HOSPITALematology/OncologyStart: 05-12-2024 End: 72-19-2397Fmhdruurm PharmacyUniversity Hospitals Ahuja Medical Centerhugo Quintanilla [facility] Specialty PharmacyComment on above:SPP Inflammatory Conditions - Medication Refill (Benlysta)Start: 04-28-2024 End: 97-53-8809Ivywil OnlyTraci Vahe LPNProMedica Physicians [facility] Vascular Comment on above:Peripheral vascular disease, unspecified ([facility]-HCC) (Primary Dx); Cold extremities; Systemic lupus erythematosus (CMS-HCC)Start: 04-26-2024 End: 36-60-3735ldjvftngyvNAPYR ABHYANKARFacility:[facility] Hospitaltart: 04-26-2024 End: 82-39-5376Belofbo evaluation of patient and reportMa Nurse Sawyer Marshall Work Phone: Hematology/OncologyComment on above:Elevated sed rate (Primary Dx); Megaloblastic anemia due to vitamin B12 deficiencyStart: 04-14-2024 End: 19-91-3084Jcxhelcrt encounterNortWinona Community Memorial Hospital Gastroenter[facility] Work Phone: [facility] Comment on above:Patient Update; AppointmentStart: 04-11-2024 End: 69-05-4405Hdhpwljtf PharmacyUniversity Hospitals Ahuja Medical Centerhugo Quintanilla [facility] Specialty PharmacyComment on above:SPP Inflammatory Conditions - Medication Refill (Benlysta)Start: 04-10-2024 End: 88-92-3948Kspreq flowsheetGordo Barfield MD Work Phone: noms ENT NORWALKStart: 04-10-2024 End: 03-77-0601Ttkrqf flowsheetGordo Barfield MD Work Phone: noms ENT NORWALKStart: 04-10-2024 End: 31-28-4759Xycpgbrrl encounterVera Najera MD Work Phone: Cancer Appts MCComment on above:AppointmentStart: 04-10-2024 End: 14-01-9731Fdgolw outpatient visit 25 minutesGordo Barfield MD Work Phone: noms ENT NORNYU LANGONE TISCH HOSPITALKComment on above:LPRD (laryngopharyngeal reflux disease) (Primary Dx); Acute otalgia, rightStart: 04-10-2024 End: 21-53-6848ubifyehmkdGDMPZN H TIMMISNot AvailableStart: 04-07-2024 End: 24-31-6540Whpoer WorkLorgodwin Jaime LSWHematology/OncologyStart: 04-06-2024 End: 37-17-4741Lfnkhwyai Result EncounterOly WARREN Work Phone: noms External Department UnsolicitedStart: 04-06-2024 End: 44-78-3034Rsomhnhgb Result EncounterOly WARREN Work Phone: noms External Department UnsolicitedStart: 04-06-2024 End: 78-70-1875Wjrnsz outpatient new 30 minutesMohamanatoliy Arciniega MD Work Phone: [facility] Vascular SurgeryComment on above:Systemic lupus erythematosus ([facility]-HCC) (Primary Dx); Cold extremities; Pain of lower extremity, unspecified laterality; Rheumatoid arthritis, involving unspecified site, unspecified whether rheumatoid factor present (CMS-HCC); Current smoker; 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Start: 04-03-2024 End: 68-49-0978RfdojbVgfq J Bruner DO Work Phone: NOMS SWS FM 230Comment on above:Oral thrush (Primary Dx)Start: 04-02-2024 End: 11-23-7603Stylfxqww encounterLynne Ni MD Work Phone: RheumatologyComment on above:ResultsStart: 04-02-2024 End: 80-72-0603Pwcwqd outpatient visit 25 minutesPatennille Nichols DO Work Phone: NOMS SWS UCComment on above:Oral thrush (Primary Dx) Start: 04-02-2024 End: 25-89-6969xehekqvkupXKXC J BRUNERNot AvailableStart: 03-31-2024 End: 82-34-2631PwuooSt. Mary's Sacred [facility] Hospital Main Work Phone: NeurologyComment on above:CMNStart: 03-30-2024 End: 29-85-7927wolqgljhoqIgfudy Tabbaa MD Work Phone: [facility] Start: 03-27-2024 End: 82-82-8920zsmernqtstGqngz Abhyankar MD Work Phone: Hematology/OncologyComment on above:Megaloblastic anemia due to vitamin B12 deficiency (Primary Dx); High total serum IgM; JOSE RAFAEL (obstructive sleep apnea); Elevated sed rate; Hypogammaglobulinemia (HCC); Frequent infectionsStart: 03-27-2024 End: 22-56-6882Cyddoasernls consultation with patientVera Najera MD Work Phone: Hematology/OncologyStart: 03-27-2024 End: 65-73-1032eyqwwghpzsDVIIE ABHYANKARFacility:[facility] Hospitaltart: 03-23-2024 End: 84-58-6243oxcxtjfsdqTWQ RAMEYNot AvailableStart: 03-23-2024 End: 42-20-8772Ybhnwh outpatient visit 15 minutesOly WARREN Work Phone: noms BCP OBComment on above:Abnormal uterine bleeding (AUB); Menorrhagia with regular cycleStart: 03-23-2024 End: 65-60-1221Hivphg flowsheetOly WARREN Work Phone: noms BCP OBStart: 03-23-2024 End: 69-57-6280Lvsbtg Ganesh WARREN Work Phone: noms BCP OBStart: 03-23-2024 End: 30-50-2894Dhiqkqp evaluation of patient and reportMa Nurse Sawyer Marshall Work Phone: Hematology/OncologyComment on above:Elevated sed rate (Primary Dx); Megaloblastic anemia due to vitamin B12 deficiencyStart: 03-23-2024 End: 64-31-9120orfnconxqdZMKBUST M HOYFacility:[facility] Hospitaltart: 03-20-2024 End: 94-12-9899Jhjmqquwt encounterAkiko Cooper MD Work Phone: [facility] Start: 03-18-2024 End: 63-32-1840Hkhetww encounter procedureLynne Ni MD Work Phone: RheumatologyComment on above:Other systemic lupus erythematosus with other organ involvement (HCC) (Primary Dx); Fibromyalgia; CHRISTIAN positive; EDS (Emanuel-Danlos syndrome); Elevated sed rate; Vitamin D deficiency; Secondary osteoarthritis of multiple sites; Chronic bilateral low back pain with bilateral sciatica; Chronic pain of toes of both feet; Long-term use of high-risk medication; 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; Bilateral hand pain; Systemic lupus erythematosus, unspecified SLE type, unspecified organ involvement status (HCC); Vitamin B12 deficiency; Discoid lupus erythematosusStart: 03-18-2024 End: 01-50-1699Epbsmnlcffin consultation with Jyothi Ni MD Work Phone: RheumatologyStart: 03-17-2024 End: 67-94-4945NnxjxbWhapexcr Tsai MD Work Phone: RheumatologyComment on above:Refill RequestStart: 03-16-2024 End: 06-36-8285Qltemi flowsheetCorey Skip DO Work Phone: noms BCP OBStart: 03-16-2024 End: 71-19-6092Rnrnat flowsheetCorey Skip DO Work Phone: NOMS BCP OBStart: 03-16-2024 End: 32-20-4769Irdqwu outpatient visit 15 minutesCorey Skip DO Work Phone: noms BCP OBComment on above:Nipple dischargeStart: 03-16-2024 End: 40-98-8204urwdvqmtjcKOZQP FAZIONot AvailableStart: 03-16-2024 End: 41-85-4951mmjmezqihwCX-C Gay De La Torre Work Phone: [facility] Work Phone: Start: 03-16-2024 End: 45-44-2839Kngpxsm encounter procedureNP-C Gay De La Torre Work Phone: [facility] Work Phone: Start: 03-13-2024 End: 31-16-4100Rbvwwylgw PharmacyCalhugo Quintanilla [facility] Specialty PharmacyComment on above:SPP Inflammatory Conditions - Medication Refill (Benlysta - NCA 09/2024)Start: 03-08-2024 End: 00-40-7756fnfhldojdiFFFV [facility] Daytontart: 03-07-2024 End: 94-86-8304Kqamc [facility] Main Work Phone: NeurologyComment on above:cmnStart: 03-02-2024 End: 53-31-4567TmhraeUdglflveyk M Graziani REAL ESTATE OPERATIONS MANAGER Work Phone: [facility] NEUR[facility] 210Comment on above:Lumbosacral radiculopathy at L5; Degenerative disc disease, lumbar; Cervical radiculopathy at W2Jytaa: 02-28-2024 End: 62-28-3370dlkgoeamczTE-C Gay De La Torre Work Phone: [facility] Work Phone: Start: 02-28-2024 End: 59-38-5374Gxpimbb encounter procedureNPDestiny De La Torre Work Phone: [facility] Work Phone: Start: 02-22-2024 End: 37-59-3090Eholbhezh encounterOly Elam [facility] Work Phone: Genetic HealthcareComment on above:Cloak Room Attendant - Other (Eds scheduling)Start: 02-21-2024 End: 06-14-4968Xjhuyso evaluation of patient and reportMa Nurse Sawyer Marshall Work Phone: Hematology/OncologyComment on above:Elevated sed rate (Primary Dx); Megaloblastic anemia due to vitamin B12 deficiencyStart: 02-18-2024 End: 20-29-9970Ywikxchpp encounterLynne Ni MD Work Phone: RheumatologyStart: 95-97-1132Vwy-patient / Non-visit REAL ESTATE OPERATIONS MANAGER-C Gay De La Torre Work Phone: [facility] Work Phone: Start: 02-16-2024 End: 54-58-6583Bbeipxnpa to same day surgery centerNP-C Gay De La Torre Work Phone: [facility] Work Phone: Start: 02-16-2024 End: 01-85-4351nmgpjkpmgjXZ-C Gay De La Torre Work Phone: [facility] Work Phone: Start: 02-15-2024 End: 73-45-5086Mmejjatgj encounterLexus Heck APRN.CNP Work Phone: NeurologyComment on above:Orders (PAP RX.)Start: 02-14-2024 End: 77-80-8767Pcsxgr-up encounterAidee Quintanilla [facility] Comment on above:SPP Inflammatory Conditions - Follow-up (Benlysta); Insurance Authorization ([place] Renewal Submitted)Start: 02-14-2024 End: 25-89-5225soezcoxohsKntgkzbiuEris Heck APRN.CNP Work Phone: NeurologyComment on above:JOSE RAFAEL (obstructive sleep apnea) (Primary Dx); Somnolence, daytimeSPP Inflammatory Conditions - Medication Refill (Benlysta - NCA 09/2024)Start: 02-14-2024 End: 55-37-3565Bnwdzvhkwecm consultation with rolaLexus Umang BIRD SITTER Work Phone: NeurologyStart: 02-09-2024 End: 92-59-6301Tusxnz flowsqianZita Lynne Blandongodwin REAL ESTATE OPERATIONS MANAGER Work Phone: noms BM NEUROLOGYStart: 02-09-2024 End: 66-89-5652Nsgywg flowsheetZita Lynne Blandongodwin REAL ESTATE OPERATIONS MANAGER Work Phone: noms NEUROLOGYStart: 02-09-2024 End: 72-05-7535Quyw/qhp telephone evaluation Cesilia Lynne Polo REAL ESTATE OPERATIONS MANAGER Work Phone: noms [facility] 210Comment on above:Lumbosacral radiculopathy at L5 (Primary Dx); Degenerative disc disease, lumbar; Cervical radiculopathy at U5Hhlrl: 02-07-2024 End: 90-54-0800UokvgmHiwgnnbfkb Lynne Blandongodwin REAL ESTATE OPERATIONS MANAGER Work Phone: noms [facility] NE[facility] 210Comment on above:Autoimmune disease (CMS/HCC); Fibromyalgia; NumbnessStart: 01-28-2024 End: 98-63-5623cfysggvmydUmjrdjw Lehman DO Work Phone: [facility] Work Phone: Comment on above:Blood workStart: 01-28-2024 End: 10-58-8928Ftczkbs encounter procedureFormerly [facility] [place] Work Phone: Start: 01-27-2024 End: 62-94-1820Pbhoqppxvtcm consultation with Mcih Victoria DO Work Phone: Infectious DiseaseStart: 01-27-2024 End: 08-41-2787rwlvegcpjbKnrwquo Lehman DO Work Phone: Infectious DiseaseComment on above:Pseudomonas infection (Primary Dx); Other systemic lupus erythematosus with other organ involvement (HCC); On prednisone therapy; Long-term use of PlaquenilStart: 01-25-2024 End: 76-16-6091Zypkavo evaluation of patient and reportMa Nurse Sawyer Marshall Work Phone: Hematology/OncologyComment on above:Elevated sed rate (Primary Dx); Megaloblastic anemia due to vitamin B12 deficiencyStart: 01-20-2024 End: 18-99-8560EkympfLtffjfx W Bauer MD Work Phone: [facility] NEURO 210Comment on above:Degenerative disc disease, lumbar (Primary Dx); Lumbosacral radiculopathy at G6Upnuz: 01-18-2024 End: 38-86-2260Gojzsoenx PharmacyCalhugo Quintanilla [facility] Specialty PharmacyComment on above:SPP Inflammatory Conditions - Medication Refill (Benlysta)Start: 01-12-2024 End: 98-31-9242qvvhdqfmgwNmhfwzui Tsai MD Work Phone: RheumatologyStart: 01-12-2024 End: 17-68-5725Kctvbvs encounter procedureLynne Ni MD Work Phone: RheumatologyComment on above:FlairStart: 12-30-2023 Telephone encounterLynne Ni MD Work Phone: RheumatologyComment on above:ResultsStart: 12-27-2023 Telephone encounterMinedy Hill PA-C Work Phone: Hematology/OncologyComment on above:ResultsStart: 12-27-2023 End: 33-10-4850Fnwogkp evaluation of patient and reportMa Nurse Sawyer Marshall Work Phone: Hematology/OncologyComment on above:Elevated sed rate (Primary Dx); Megaloblastic anemia due to vitamin B12 deficiencyStart: 12-27-2023 End: 34-27-1012Wlqfen outpatient visit 15 minutesMinedy Hill PA-C Work Phone: Hematology/OncologyComment on above:Megaloblastic anemia due to vitamin B12 deficiency (Primary Dx); Elevated sed rate; Obstructive sleep apnea syndromeStart: 12-24-2023 End: 76-11-0821pbsixkicydOHTRHS [facility] AmbulatoryStart: 12-16-2023 End: 79-70-2606wimyolbwbpBvzctljmqOhioHealth [facility] Work Phone: Start: 12-16-2023 End: 12-02-6603Ocbdgzz encounter procedureFormerly [facility] GroupUNIV[facility] Infect[facility] Disease Work Phone: Start: 89-95-9414Hdzjxkyyu PharmacyCalhugo Quintanilla [facility] Specialty PharmacyComment on above:SPP Inflammatory Conditions - Medication Refill (Benlysta - NCA 09/2024)Start: 11-29-2023 End: 06-31-1673Mxptffl evaluation of patient and reportMa Nurse Sawyer Marshall Work Phone: Hematology/OncologyComment on above:Elevated sed rate (Primary Dx); Megaloblastic anemia due to vitamin B12 deficiencyStart: 05-76-6617rtbhbdqgvh Vera Najera MD Work Phone: Hematology/OncologyComment on above:Folic acidStart: 64-47-7083Kjwklpufj PharmacyAidee Quintanilla [facility] Specialty PharmacyComment on above:SPP Inflammatory Conditions - Medication Refill (Benlysta - NCA 09/2024) Start: 78-58-1732CpclsnTpgxckot Tsai MD Work Phone: RheumatologyComment on above:Refill RequestStart: 11-04-2023 End: 79-65-8237mbclnescdqDumzmhmcoOhioHealth [facility] Work Phone: Start: 11-04-2023 End: 43-31-0450Iytghpr encounter procedureFormerly [facility] Infect[facility] Disease Work Phone: Start: 10-27-2023 End: 48-13-0830Vjetpsx evaluation of patient and reportMa Nurse Sawyer Sand Work Phone: Hematology/OncologyComment on above:Elevated sed rate (Primary Dx); Megaloblastic anemia due to vitamin B12 deficiencyStart: 47-09-1167fjilzjcgnq Lynen Ni MD Work Phone: RheumatologyStart: 52-00-7953Yzhqiiy encounter procedureLynne Ni MD Work Phone: RheumatologyComment on above:CdiffStart: 10-20-2023 End: 46-14-9763uoxzgxlxbaPvqxdhycc [facility] Work Phone: Start: 10-20-2023 End: 45-00-9710Nyrthec encounter procedureFormerly [facility] Work Phone: Start: 89-96-0151Hiysvtwhp PharmacyUniversity Hospitals Ahuja Medical Centerhugo Quintanilla [facility] Specialty PharmacyComment on above:SPP Inflammatory Conditions - Medication Refill (Benlysta)Start: 10-05-2023 End: 67-86-9222Ybqgcln encounter procedureLynne Ni MD Work Phone: eumatologyComment on above:Other systemic lupus erythematosus with other organ involvement (HCC) (Primary Dx); Elevated sed rate; Fibromyalgia; CHRISTIAN positive; Family history of Crohn's disease; Secondary osteoarthritis of multiple sites; Chronic bilateral low back pain with bilateral sciatica; Chronic pain of toes of both feet; Long-term use of Plaquenil; Long-term use of high-risk medication; 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; 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; Bilateral hand pain; History of vitamin D deficiencyStart: 10-05-2023 End: 44-52-3149Eoubmebthyuw consultation with patientLynne Ni MD Work Phone: RheumatologyStart: 09-30-2023 End: 94-95-3600Cjakunk evaluation of patient and reportMa Nurse Sawyer Marshall Work Phone: Hematology/OncologyComment on above:Elevated sed rate (Primary Dx); Megaloblastic anemia due to vitamin B12 deficiencyStart: 09-22-2023 End: 59-42-1647Vvkwpao encounter procedureFirnicanor Physician Group-[facility] Gastroenterology Work Phone: Start: 27-15-2708Udenjjydd PharmacyAidee Quintanilla [facility] Specialty PharmacyComment on above:SPP Inflammatory Conditions - Medication Refill (Benlysta)Start: 09-09-2023 End: 12-61-3632ugznajylesAxkcg Abhyankar MD Work Phone: Hematology/OncologyComment on above:Megaloblastic anemia due to vitamin B12 deficiency (Primary Dx); Obstructive sleep apnea syndrome; Chronic fatigue and malaise; High total serum IgM; JOSE RAFAEL (obstructive sleep apnea); Somnolence, daytimeStart: 09-09-2023 End: 55-12-5498Ywqkbkfplsoa consultation with Treasure Najera MD Work Phone: SANDUSKYStart: 83-78-9159Teavgbbfv encounterLynne Ni MD Work Phone: RheumatologyComment on above:ResultsStart: 08-31-2023 End: 23-21-4173Ibhovux evaluation of patient and reportMa Nurse Sawyer Marshall Work Phone: Hematology/OncologyComment on above:Megaloblastic anemia due to vitamin B12 deficiency (Primary Dx); Elevated sed rateStart: 63-60-0240Twablrqbk PharmacyAidee Quintanilla [facility] Specialty PharmacyComment on above:SPP Inflammatory Conditions - Medication Refill (Benlysta )Start: 08-05-2023 End: 78-13-3094Zsbbizw evaluation of patient and reportMa Nurse Sawyer Marshall Work Phone: Hematology/OncologyComment on above:Megaloblastic anemia due to vitamin B12 deficiency (Primary Dx); Elevated sed rateStart: 12-79-5620Jav-patient / Non-visitFirnicanor Physician Group-[facility] Gastroenterology Work Phone: Start: 22-26-8464hogtnlgeneLikjqj Bradley [facility] MAINStart: 07-13-2023 End: 20-75-3433Ntslsge evaluation of patient and reportMa Nurse Sawyer Marshall Work Phone: Hematology/OncologyComment on above:Megaloblastic anemia due to vitamin B12 deficiency (Primary Dx); Elevated sed rateSPP Inflammatory Conditions - Medication Refill (Benlysta ) Start: 07-13-2023 End: 68-72-1437Cjdxsn outpatient new 45 minutesLois Holm MD Work Phone: [facility] HospitalComment on above:Shortness of breath (Primary Dx); Paroxysmal supraventricular tachycardia; PAC (premature atrial contraction); Current smoker; Systemic lupus erythematosus, unspecified SLE type, unspecified organ involvement status (CMS/HCC); Palpitations; Obstructive sleep apnea syndrome; Morbid obesity (CMS/HCC); Bilateral lower extremity edemaStart: 07-06-2023 End: 64-45-6530Yjlmju outpatient visit 25 minutesKade Early MD Work Phone: noms [facility] 210Comment on above:Autoimmune disease (CMS/HCC) (Primary Dx); Autonomic dysfunction; Lumbosacral radiculopathy; Bilateral leg weaknessStart: 87-29-9391Aspgd abstractingKade Early MD Work Phone: noms [facility] 210Start: 06-09-2023 End: 70-43-8078Hwzqnm outpatient new 60 minutesMichelel Jasmine APRN-BIRD SITTER Work Phone: [facility] and ClinicsComment on above:Irregular heart rate (Primary Dx); Essential hypertension; Autonomic dysfunction; Obstructive sleep apnea syndrome; Primary hypertensionStart: 05-26-2023 End: 66-71-2420Icovnv outpatient visit 40 minutesChristie Phan MD Work Phone: Integrated MedicineComment on above:Obesity, Class III, BMI >= 40 (Primary Dx); Other chronic painStart: 04-26-2023 End: 76-93-7462Ebfcfv outpatient visit 40 minutesChristie Phan MD Work Phone: Integrative and Lifestyle MedicineComment on above: Obesity, Class III, BMI >= 40 (Primary Dx); FUO (fever of unknown origin); Other chronic painStart: 54-59-9223kawxelvkqhYaozslp Ruff MD Work Phone: Integrative and Lifestyle MedicineComment on above: PhentermineStart: 63-14-0819Sqdaoyvhf encounterEnma Hamm RN Hematology/OncologyComment on above:ResultsStart: 04-16-2023 End: 70-43-0359Zovzpmq evaluation of patient and reportMa Nurse Sawyer Sand Work Phone: Hematology/OncologyComment on above:Megaloblastic anemia due to vitamin B12 deficiency (Primary Dx); Elevated sed rateStart: 03-19-2023 End: 71-09-9594Xxosrdi evaluation of patient and reportMa Nurse Sawyer Sand Work Phone: Hematology/OncologyComment on above:Megaloblastic anemia due to vitamin B12 deficiency (Primary Dx); Elevated sed rateStart: 30-84-5758Cyxrm [facility] Main Work Phone: NeurologyComment on above:CMNStart: 03-11-2023 End: 12-16-9175Xhfprbn evaluation of patient and reportNurse [facility] Nickie Work Phone: RheumatologyComment on above:Systemic lupus erythematosus, unspecified SLE type, unspecified organ involvement status (HCC) (Primary Dx)Start: 72-56-5568Rmwxcjhfy encounterLynne Ni MD Work Phone: RheumatologyComment on above:Results (Eye Exam)Start: 02-19-2023 End: 50-53-1428Xpeakrm evaluation of patient and reportMa Nurse Sawyer Sand Work Phone: Hematology/OncologyComment on above:Megaloblastic anemia due to vitamin B12 deficiency (Primary Dx); Elevated sed rateStart: 02-19-2023 End: 02-77-6814Uuinow outpatient visit 15 minutesVera Najera MD Work Phone: Hematology/OncologyComment on above:Megaloblastic anemia due to vitamin B12 deficiency (Primary Dx); Elevated sed rate; Chronic fatigue and malaise; High total serum IgM; JOSE RAFAEL (obstructive sleep apnea)Start: 56-69-2386ClmluzSyhzjwtn Tsai MD Work Phone: [facility] CentermatologyComment on above:Refill RequestStart: 02-04-2023 End: 76-70-1396soaiqtwmjfAuzksxmk Tsai MD Work Phone: eumatologyComment on above:Other systemic [...] deficiency; Elevated sed rate; Bilateral wrist pain; alf current use of systemic steroids; Steroid-induced osteoporosis; 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Start: 40-20-9275Svvjoem encounter procedure Clinton Schroeder (Pharmacist)[facility] Specialty PharmacyComment on above:SPP Inflammatory Conditions - Treatment Referral (Benlysta); Insurance Authorization ([place] submissionpenniharika)Start: 14-12-4502Qwynjvgaa encounterLynne Ni MD Work Phone: [facility] HospitaltologyComment on above:Appointment; Orders; Medication AuthorizationStart: 02-04-2023 End: 11-04-6446Tswwxrmhawfu consultation with patientLynne Ni MD Work Phone: [facility] CENTERtart: [phone] Ruff MD Work Phone: Integrated MedicineComment on above:Refill Request Start: 35-75-9085Kzcuddbdr encounterLynne Ni MD Work Phone: [facility] HospitaltologyComment on above:ResultsStart: 01-22-2023 End: 75-26-4187Hhqgmel evaluation of patient and reportMa Nurse Sawyer Marshall Work Phone: Hematology/OncologyComment on above:Megaloblastic anemia due to vitamin B12 deficiency (Primary Dx); Elevated sed rateStart: 73-29-4164PbduiuEduardo Najera MD Work Phone: Hematology/OncologyComment on above:Megaloblastic anemia due to vitamin B12 deficiency (Primary Dx); High total serum IgM; Elevated sed rateStart: 01-01-2023 End: 35-98-6456owfiyjpchdYfnpj Patadia MD Work Phone: AllergyComment on above:High total serum IgM (Primary Dx); Low serum IgG for age; Current smokerStart: 01-01-2023 End: 99-87-0144Odnbvvelhzaj consultation with Robson Nelson MD Work Phone: [facility]INStart: 59-35-1091Tmekud Christie Phan MD Work Phone: Integrated MedicineComment on above:Refill Request Start: 14-40-4397Xaadlfnvz encounterLidia Argueta RN Work Phone: Hematology/OncologyComment on above:Care Coordination (appointment)Start: 12-17-2022 End: 86-36-0499dzzquokqigLajdhTom Rojas APRN.CNP Work Phone: Hematology/OncologyComment on above:Megaloblastic anemia due to vitamin B12 deficiency (Primary Dx); Chronic fatigue and malaiseStart: 12-17-2022 End: 19-93-9202Ouajqqecwuai consultation with Sonali Rojas APRN.CNP Work Phone: SANDUSKYStart: 64-70-1047Yrqnzjhzb encounterRefrank Bettencourt RN Work Phone: Hematology/OncologyComment on above:AppointmentStart: 58-08-9311mnukujkkbmShyitNhan Najera MD Work Phone: Hematology/OncologyComment on above:Test resultsStart: 21-41-5101Cwgzgsuel encounterEnma Hamm RNHematology/OncologyComment on above:ResultsStart: 00-90-7741nommdzvvbnTykqhbhm Tsai MD Work Phone: RheumatologyComment on above:updateStart: 11-19-2022 End: 06-59-7034Widkrjm evaluation of patient and reportMa Nurse Sawyer Marshall Work Phone: Hematology/OncologyComment on above:Megaloblastic anemia due to vitamin B12 deficiency (Primary Dx); Elevated sed rateStart: 10-22-2022 End: 99-01-8401Zfrqdkb evaluation of patient and reportMa Nurse Sawyer Marshall Work Phone: Hematology/OncologyComment on above:Megaloblastic anemia due to vitamin B12 deficiency (Primary Dx); Elevated sed rateStart: 10-22-2022 End: 45-30-4748Pooapg outpatient visit 15 minutesVera Najera MD Work Phone: Hematology/OncologyComment on above:Megaloblastic anemia due to vitamin B12 deficiency (Primary Dx); Elevated sed rate; High total serum IgM; Chronic fatigue and malaise; Obstructive sleep apnea syndromeStart: 09-24-2022 End: 53-92-8724bjtytbanbbQXJ RAMEY .Facility:P1Ibknr: 09-24-2022 End: 97-97-9673Mezxmiy evaluation of patient and reportMa Nurse Sawyer Marshall Work Phone: Hematology/OncologyComment on above:Megaloblastic anemia due to vitamin B12 deficiency (Primary Dx); Elevated sed rateStart: 09-10-2022 End: 93-77-7092nyxejsbljgPI DOUGLAS HOY .Facility:Y1Csiiw: 94-12-6248Iqsxiadzd encounterAngelia [facility] Home Delivery - ComplianceComment on above:Compliance AdherenceStart: 09-07-2022 End: 39-75-9359Vxxgei outpatient visit 40 minutesChristie Phan MD Work Phone: Integrative and Lifestyle MedicineComment on above: Obesity, Class III, BMI >= 40 (Primary Dx); Polypharmacy; Pre-diabetesStart: 09-01-2022 End: 10-18-6989nkowvwvtqbWL MANUEL CHEYENNECristina .Facility:J8Jrksb: 92-48-9370Vbzwfp Lynne Ni MD Work Phone: RheumatologyComment on above:Refill RequestStart: 08-27-2022 End: 75-40-6795Poxmpsx evaluation of patient and reportMa Nurse Sawyer Marshall Work Phone: Hematology/OncologyComment on above:Megaloblastic anemia due to vitamin B12 deficiency (Primary Dx); Elevated sed rateStart: 08-27-2022 End: 68-04-0872sxppjuecfpPclvdKathy Rojas APRN.CNP Work Phone: Hematology/OncologyComment on above:Megaloblastic anemia due to vitamin B12 deficiency (Primary Dx); Elevated sed rate; High total serum IgM; Chronic fatigue and malaise; JOSE RAFAEL (obstructive sleep apnea)Start: 08-27-2022 End: 39-01-9921Qbwxjpi encounter Kaley Rojas APRN.CNP Work Phone: SANDUSKYStart: 45-58-9502Agpupsqkx encounterLynne Ni MD Work Phone: RheumatologyComment on above:ResultsStart: 08-15-2022 ambulatoryLynne Ni MD Work Phone: RheumatologyComment on above:updateStart: 08-10-2022 RefillChristie Phan MD Work Phone: [facility] Integrative MedComment on above:Refill Request Start: 07-27-2022 End: 38-08-3577ejptaqxlveDlyuizouqEris Heck APRN.CNP Work Phone: NeurologyComment on above:JOSE RAFAEL (obstructive sleep apnea) (Primary Dx)Start: 07-27-2022 End: 89-26-5195Fcthijosfswu consultation with Sara Heck APRN.CNP Work Phone: [facility]ILLCRESTStart: 35-49-6610ywbynamzlsKqmlafxh Tsai MD Work Phone: RheumatologyComment on above:Blood workStart: 46-83-1197Rkslvunry encounterVera Najera MD Work Phone: Hematology/OncologyComment on above:Orders (Lab Orders Before Appointment)Start: 95-40-3710vjfgfqhfhnFviyqm Devnani MD Work Phone: [facility]INStart: 29-65-3891Zhmiial encounter procedureLawanda Miranda MD Work Phone: NeurologyComment on above:AppointmentStart: 05-20-2022 End: 53-90-3516Bwolbeg evaluation of patient and reportMa Nurse Sawyer Marshall Work Phone: Hematology/OncologyComment on above:Megaloblastic anemia due to vitamin B12 deficiency (Primary Dx); Elevated sed rateStart: 05-20-2022 End: 48-08-9847zoztrymtpaBpvdx Abhyankar MD Work Phone: Hematology/OncologyComment on above:High total serum IgM (Primary Dx); Elevated sed rate; Somnolence, daytime; JOSE RAFAEL (obstructive sleep apnea)Start: 05-20-2022 End: 40-57-8759Uphpbor encounter procedureVera Najera MD Work Phone: SANDUSKYStart: 27-83-7356ysrbzvfgynWajqeq Devnani MD Work Phone: NeurologyComment on above:CpapStart: 05-05-2022 Telephone encounterJami Rivera PSSHome Respiratory TherapyComment on above:PAP Therapy Follow UpPAP Rx Faxed (YUNIOR Seo)Start: 24-42-4814Gcmoxyntl encounterNy Lance MD Work Phone: Pediatric GenomicsComment on above:Future Appointment (Scheduling questions/concerns)Start: 04-22-6546Ysbrxspjj encounterAlyssa Licea Research CoordinatorGenetic HealthcareComment on above:Appointment; Cloak Room Attendant - OtherStart: 03-31-2022 End: 94-01-0215bughohljshNLPrashanth FERRIS .Facility:Q2Jjjlb: 27-66-4702Fcsnmd Christie Phan MD Work Phone: [facility] Integrative MedComment on above:Refill Request Start: 91-65-3364yduxyqgfjkEnhow Patadia MD Work Phone: AllergyComment on above:PneumovaxStart: 00-75-2274H- mail encounter from Dana Nelson MD Work Phone: AMHERSTStart: 38-54-2391Azioblqsd encounterMisty Nelson MD Work Phone: AllergyComment on above:PneumovaxStart: 03-21-2022 End: 92-74-7830wjzfebxttoYC EL ROSSI .Facility:F9Tooko: 03-18-2022 End: 08-90-8495rrmjybvidtNkxgu Abhyankar MD Work Phone: Hematology/OncologyComment on above: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); High total serum NqID6pAyqqj: 37-07-5895W-mail encounter from John Phan MD Work Phone: [facility]USStart: 03-18-2022 End: 99-25-0885Nvzebci encounter procedureVera Najera MD Work Phone: SANDUSKYStart: 03-12-2022 End: 82-70-9488pxntsfavavMIPrashanth FERRIS .Facility:F7Rfhes: 03-10-2022 End: 20-43-8233dioaszeiwcJihlxej Lehman DO Work Phone: Infectious DiseaseComment on above:resultsRaised level of immunoglobulins (Primary Dx); Wound healing, delayed; Current smokerStart: 17-43-4746Y-mail encounter from Jean Victoria DO Work Phone: [facility]Start: 03-10-2022 End: 95-65-5789Uyhrvlawralw consultation with Robson Nelson MD Work Phone: AMHERSTStart: 03-09-2022 End: 86-41-2227ydbcfqzucuDOHKNC CRAMERFacility:D8Yzgss: 03-09-2022 End: 15-73-2660Ykpzkk consultation new/estab patient 80 Dorothea Phan MD Work Phone: [facility] Integrative MedComment on above:Obesity, Class II, BMI 35-39.9 (Primary Dx); Somnolence, daytime; Chronic fatigue and malaise; Obesity, unspecified classification, unspecified obesity type, unspecified whether serious comorbidity present; Snoring; POTS (postural orthostatic tachycardia syndrome); Elevated glucose; Raised level of immunoglobulinsStart: 69-55-1769Mwlzjrvdu encounterBeminnie Victoria DO Work Phone: Infectious DiseaseComment on above:Opened In Error Start: 83-65-6426ekimucgjiiYwvqpfuf Tsai MD Work Phone: RheumatologyComment on above:resultsStart: 03-05-2022 Telephone encounterLynne Ni MD Work Phone: RheumatologyComment on above:ResultsStart: 03-04-2022 End: 83-75-1153btjxwyrzmnZxzoyNhan Najera MD Work Phone: Hematology/OncologyComment on above:High total serum IgM (Primary Dx); Megaloblastic anemia due to vitamin B12 deficiency; Somnolence, daytime; Snoring; Chronic fatigue and malaise; Obesity, unspecified classification, unspecified obesity type, unspecified whether serious comorbidity presentStart: 03-04-2022 End: 58-66-2653Vdihvqm encounter Jorge Najera MD Work Phone: SANDUSKYStart: 22-54-2674Npzpj abstractReji Najera MD Work Phone: Hematology/OncologyStart: 26-47-1639Bfjhboyws encounterMilena Gandara MD Work Phone: Infectious DiseaseComment on above:Opened In Error Start: 02-24-2022 End: 28-39-2860geitfnvoxoVfdeazw Lehman DO Work Phone: Infectious DiseaseComment on above:Swelling of lymph nodes (Primary Dx); Other systemic lupus erythematosus with other organ involvement (HCC); On prednisone therapy; Hair loss; Bilateral sacroiliitis (HCC); Long-term use of PlaquenilStart: 02-24-2022 End: 63-02-0872Ciicfkjjbjlc consultation with Mich Victoria DO Work Phone: [facility]INStart: 02-14-2022 End: 05-17-3712fsfeoivvdfBX MANUEL FERRIS .Facility:I5Rvsze: 11-26-2021 End: 41-58-9790kahzlgcteqZwymmzq Blank Other [employer] Other Start: 69-46-8744Lfwmyt outpatient visit 25 minutes Mirela Odom Infectious DiseaseStart: 11-17-2021 End: 70-55-1280bclphqjlxwFUPrashanth BAERFacility:M3Psmtm: 10-24-2021 End: 01-18-9118Zmuyabq encounter procedureLynne Ni MD Work Phone: RheumatologyComment [...] history of Crohn's disease; FibromyalgiaStart: 10-15-2021 End: 65-15-6972dvjdvwzgrnPrpztyg Blank Other [employer] Other Start: 62-28-1889Tkbmzm outpatient visit 25 minutes Mirela BaerJOHN Infectious DiseaseStart: 10-03-2021 End: 46-03-6632netqjplkecAC MIRELA BAERFacility:R6Znril: 09-18-2021 End: 57-73-0921qsgtlpbhkxXjysjef Blank Other Nort [employer] Other Start: 31-28-5239Nhftuuhiw encounterMichael BlankFPG Infectious DiseaseStart: 09-11-2021 End: 11-91-6900svorbvamotWjytqtf Blank Other [facility] [employer] Other Start: 06-77-3136Swsiga outpatient new 45 minutes Mirela BaerJOHN Infectious DiseaseStart: 10-07-2020 End: 29-36-6989zkgooagmaqGZAWOMagruder Hospitaltart: 10-07-2020 End: 45-83-0640Legdnkjwnk hospital visit by physicianStv Forensic Psychologist Rm ASTVZ Cath LabComment on above:ArrivedStart: 09-14-2018 End: 89-15-6245Adumjdh encounter procedureROBNASREEN Batista [facility] Procedures DateProcedureProcedure DetailPerforming ClinicianStart: 49-86-2842Zqxgp culture Gay De La Torre REAL ESTATE OPERATIONS MANAGER-C Work Phone: [phone]-art: 91-29-7052Rlzul cultureGay De La Torre REAL ESTATE OPERATIONS MANAGER-C Work Phone: [phone]-art: 74-47-3125KDCTDKJ Berlin Blum MD Work Phone: Start: 08-69-9549DOTLFQCBK Berlin Blum MD Work Phone: Start: 61-98-5345Agkupbu of pilonidal cystGay De La Torre REAL ESTATE OPERATIONS MANAGER-C Work Phone: [phone]-art: 91-43-5357Phmtbgr microbial cultureGay De La Torre REAL ESTATE OPERATIONS MANAGER-C Work Phone: [phone]-art: 96-85-4155Krss stain microscopyGay De La Torre REAL ESTATE OPERATIONS MANAGER-C Work Phone: Start: 81-98-0836Rcmyl cultureGay De La Torre REAL ESTATE OPERATIONS MANAGER-C Work Phone: Start: 83-94-7334XG Nerve Radio Frequency (Bilateral) Gay De La Torre REAL ESTATE OPERATIONS MANAGER-C Work Phone: Start: 42-52-3088Uvihz count complete automated Lynne Ni MD Work Phone: Start: 76-61-9589Toysk count complete automated Lynne Ni MD Work Phone: Start: 87-65-4190P-reactive proteinLynne Ni MD Work Phone: Start: 56-08-5869Jvrxs of gammaglobulin iga igd igg igm eachJaimee Deven WEATHER TEACHER.BIRD SITTER Work Phone: Start: 80-12-0167Xw soft tissue head & neck real time imge docJinny Barfield MD Work Phone: Start: 98-58-2151Sqwopixkz of local anesthetic into sacroiliac jointGay De La Torre REAL ESTATE OPERATIONS MANAGER-C Work Phone: Start: 77-04-4692Siwud count complete auto&auto difrntl wbcJaimee Deven WEATHER TEACHER.BIRD SITTER Work Phone: Start: 20-69-4759YMA,APTIMA HPV,AGE GDLNOly WARREN Work Phone: Start: 50-03-4878Gofwwpqumuf observation [Identifier] in Cervix by Cyto stainBernabe English MD Work Phone: Start: 10-15-2721Kvsvh count complete auto&auto difrntl wbcLeonardok Marquis LEE Work Phone: Start: 77-30-5249CqrixtltcfeYetin Petitti MD Work Phone: Start: 68-03-4442YVH CBC WITH AUTO DIFFOly WARREN Work Phone: Start: 65-51-6412BIL THYROID STIM HORMONEOly WARREN Work Phone: Start: 91-43-8755WZO THYROXINE (T4) FREEOly WARREN Work Phone: Start: 10-86-3394HQK APTTAjesenia Temo WARREN Work Phone: Start: 83-87-8067LZS HEMOGLOBIN A1COly Temo WARREN Work Phone: Start: 93-54-7061NYCATF PROTHROMBIN TIME INR W/O COUM Oly WARREN Work Phone: Start: 67-32-5615PHU PREG QUANT HCGOly Temo WARREN Work Phone: Start: 19-24-7487WgyrsyjhxmlEgyzva Ibrahim MD Work Phone: Start: 03-23-2024 End: 90-28-5582Djczg dip stick/tablet rgnt non-auto w/o micrscpAjesenia WARREN Work Phone: Start: 21-03-4946Bjdggzwtz of local anesthetic into sacroiliac jointNP-C Gay De La Torre Work Phone: Start: 54-84-3886Jcn routine ecg w/least 12 lds w/i&r Lois Holm MD Work Phone: Start: 16-15-9562Liz routine ecg w/least 12 lds w/i&r Michelle Jasmine WEATHER TEACHER-BIRD SITTER Work Phone: Start: 31-77-4687Bvraegtkiih observation [Identifier] in Cervix by Cyto stainCorey Skip DO Work Phone: Start: 08-01-1237Jxcy cerv/vag auto thin layer prep mnl screenCorey Skip DO Work Phone: Start: 10-07-2020 End: 53-69-9256Zdfwxct catheterizationJonas Black MD Work Phone: Start: 69-09-1841Ugufovrj [Moles/volume] in Serum or PlasmaJonas Black MD Work Phone: Start: 33-44-6779JBYEFYQNFC W/GFR POINT OF CAREJonas Black MD Work Phone: Start: 10-07-2020 End: 25-83-4928Uyru bld gluc mntr dev cleared fda spec home useJonas Black MD Work Phone: Start: 04-63-2267Cvsxepvde [Moles/volume] in Serum or PlasmaJonas Black MD Work Phone: Start: 70-50-4151Ntbgyd [Moles/volume] in Serum or PlasmaJonas Black MD Work Phone: Start: 69-33-1906Iclng test visual color cmprsn methsAfbaricio Black MD Work Phone: Start: 73-43-2561Twerc foot complete minimum 3 views VICTOR MANUEL GUZMAN Plan of Treatment DateCare ActivityDetailAuthorStart: 45-03-2296Mincyhyur for malignant neoplasm of cervixNOMS HealthcareStart: 93-59-5162Emybdtmus for malignant neoplasm of cervixNOMS HealthcareStart: 92-23-4218Haokjxpsh for malignant neoplasm of cervix Pap SmearBlanchard [facility] SystemStart: 07-26-2025 End: 37-79-4834Gupkbxf encounter yurdphkmo56/05/2026 11:00 AM EST Office Visit [place] [id number] [phone] Lois Holm MD [address] [place] [address] [address] [place] [address] [facility]Start: 07-25[facility]2025 End: 67-34-7031Dieedxn encounter procedureNOMS SWS DERMStart: 04-20-2025 End: 207609-anadbijxfcngyi D3 [Mass/volume] in Serum or PlasmaVITAMIN D 25 HYDROXY Lab Routine Vitamin D deficiency Expected: 04/20/2025 (Approximate), Expires: 08/28/2026[facility] ClinicComment on above:Expected: 04/20/2025 (Approximate), Expires: 01/18/2026Start: 04-20-2025 End: 01-18-2026 reactive protein [Mass/volume] in Serum or PlasmaC-REACTIVE PROTEIN Lab Routine Elevated C-reactive protein (CRP) Elevated sed rate Expected: 04/20/2025 (Approximate), Expires: 01/18/2026leveland ClinicComment on above:Expected: 04/20/2025 (Approximate), Expires: 01/18/2026Start: 04-20-2025 End: 46-64-9933ADY panel - Blood by Automated countCOMPLETE BLOOD COUNT Lab Routine Anemia of chronic disease Expected: 04/20/2025 (Approximate), Expires: 01/18/2026leveland ClinicComment on above:Expected: 04/20/2025 (Approximate), Expires: 01/18/2026Start: 04-20-2025 End: 78-67-1547Dsghnekkuvbcb metabolic 2000 panel - Serum or PlasmaCOMPREHENSIVE METABOLIC PANEL Lab Routine Elevated LFTs Expected: 04/20/2025 (Approximate), Expires: 01/18/2026[facility] Work Phone: Comment on above:Expected: 04/20/2025 (Approximate), Expires: 01/18/2026Start: 04-20-2025 End: 84-41-2422Htcbfnpjynk sedimentation rateSEDIMENTATION RATE, WESTERGREN Lab Routine Elevated C-reactive protein (CRP) Elevated sed rate Expected: 04/20/2025 (Approximate), Expires: 01/18/2026leveland ClinicComment on above:Expected: 04/20/2025 (Approximate), Expires: 01/18/2026Start: 61-43-9014Tctfrekim for malignant neoplasm of breastMammogramNOSamaritan HospitalStart: 99-58-2233Vwdqe BMI ScreeningAdult BMI ScreeningBlanchard Valley Health System [facility] SystemStart: 98-53-9692Vxlygkjqq for malignant neoplasm of breastPaulding County HospitalStart: 71-33-6331Fhigfqi ScreeningTobacco ScreeningProMercy Health St. [facility] SystemStart: 03-23-2025 End: 25-43-5542Usuinza encounter /31/2025 11:30 AM EDT Office Visit [facility] [address] [facility] [address] [place] [address] Terence Blum MD [address] [facility] [address] [place] [address] [facility] AssociatesStart: 03-19-2025 End: 80-75-6068Txazoyu encounter procedureNOMS ENT NORWALKStart: 03-17-2025 Diabetes mellitus screeningDiabetes ScreeningGlenbeigh Hospital Start: 03-14-2025 End: 17-25-9720Azgjsfifs culture and sensitivityPremier Health Atrium Medical Center SystemComment on above:Expected: 03/14/2025, Expires: 03/14/2026Start: 63-22-8040Ogynk culture [facility] Hospitaltart: 61-41-3767Epxenarb identified in Urine by CultureUrine CultureMemorial Hospitaltart: 78-30-7432Chhjw cultureMemorial Hospitaltart: 69-42-9004Lihksuva identified in Urine by CultureUrine [facility]art: 03-02-2025 End: 31-06-7124IakexbebgMemorial Hospitaltart: 16-87-4128Vcyvmmr Culture Aerobic [facility]art: 62-92-0447Srtikgtzf CultureAnaeroc [facility] Centertart: 03-02-2025 Anaerobic microbial cultureAnaeroCenterville Start: 45-25-5571Orpjfrtyghi observation [Identifier] in Unspecified specimen by Gram stainMemorial Hospitaltart: 94-98-6011Hjzjk culture Memorial Hospitaltart: 21-18-3039Sdbalncf identified in Urine by CultureUrine [facility]art: 02-21-2025 End: 76-43-2301dsugfbgcezSkyelwvnvr/OncologyComment on above:3 mo F/U-IVIGStart: 02-21-2025 End: 15-08-8806Jathuml encounter ogxrccbgz71/01/2025 8:45 AM EDT Office Visit [facility] [address] [place] [address] 3 mo F/U-IVIGNortProMedica [facility] Comment on above:3 mo F/U-IVIGStart: 02-14-2025 End: 55-40-3306Heumykp encounter /24/2025 3:20 PM EDT Office Visit [facility] [address] [place] [phone] Bernabe English MD [address] [place] [address] ArrivedNOMS Seo DermatologyComment on above:ArrivedStart: 02-08-2025 End: 13-61-6068grnlaqczeg92/18/2025 2:00 PM EDT Infusion Center Hematology/Oncology [address] [facility] [place] [address] BENLYSTA -Hematology/OncologyComment on above:BENLYSTA -Start: 15-27-5165KpymrfypdMemorial Hospitaltart: 01-24-2025 End: 03-75-3928ypoagfntqaFcyeubbmar/OncologyComment on above:IVIG q4 weeks IVIG(5hours) q4 weeksStart: 05-17-2318ADIGC-19 VACCINE ( season) COVID-19 VACCINE ( season)[facility] Northtart: 01-22-2025 Influenza vaccinationMid Missouri Mental Health CenterStart: 01-06-2025 End: 703259-vnbumknniqrrrn D3 [Mass/volume] in Serum or PlasmaVITAMIN D 25 HYDROXY Lab Routine Vitamin D deficiency Expected: 01/06/2025 (Approximate), Expires: 10/06/2025leveland ClinicComment on above:Expected: 01/06/2025 (Approximate), Expires: 10/06/2025Start: 01-06-2025 End: 30-34-2610OQHTU TB SCREENBLOOD TB SCREEN Lab Routine Screening-pulmonary TB Expected: 01/06/2025 (Approximate), Expires: 10/06/2025[facility] ClinicComment on above:Expected: 01/06/2025 (Approximate), Expires: 10/06/2025Start: 01-06-2025 End: 10-06-2025 reactive protein [Mass/volume] in Serum or PlasmaC-REACTIVE PROTEIN Lab Routine Elevated sed rate Elevated C-reactive protein (CRP) Expected: 01/06/2025 (Approximate), Expires: 10/06/2025[facility] ClinicComment on above:Expected: 01/06/2025 (Approximate), Expires: 10/06/2025Start: 01-06-2025 End: 64-14-7968ZGA panel - Blood by Automated countCOMPLETE BLOOD COUNT Lab Routine Anemia of chronic disease Expected: 01/06/2025 (Approximate), Expires: 10/06/2025[facility] ClinicComment on above:Expected: 01/06/2025 (Approximate), Expires: 10/06/2025Start: 01-06-2025 End: 94-94-1969Ilpnvph hepatitis differentiation between hepatitis B and C virus panel - Serum or PlasmaHEP REMOTE PANEL BL Lab Routine Elevated LFTs Expected: 01/06/2025 (Approximate), Expires: 10/06/2025[facility] ClinicComment on above: Expected: 01/06/2025 (Approximate), Expires: 10/06/2025Start: 01-06-2025 End: 05-19-6767Eebsyhtlm (Vitamin B12) [Mass/volume] in Serum or PlasmaVITAMIN B12 Lab Routine Vitamin B12 deficiency Expected: 01/06/2025 (Approximate), Expires: 10/06/2025[facility] ClinicComment on above:Expected: 01/06/2025 (Approximate), Expires: 10/06/2025Start: 01-06-2025 End: 41-07-9879Yympnlqeffazr metabolic 2000 panel - Serum or PlasmaCOMPREHENSIVE METABOLIC PANEL Lab Routine Elevated LFTs Expected: 01/06/2025 (Approximate), Expires: 10/06/2025[facility] Work Phone: Comment on above:Expected: 01/06/2025 (Approximate), Expires: 10/06/2025Start: 01-06-2025 End: 56-90-9292Cjjpvpfvdzp sedimentation rateSEDIMENTATION RATE, WESTERGREN Lab Routine Elevated sed rate Elevated C-reactive protein (CRP) Expected: 01/06/2025 (Approximate), Expires: 10/06/2025[facility] ClinicComment on above:Expected: 01/06/2025 (Approximate), Expires: 10/06/2025Start: 12-27-2024 End: 59-56-1059uvvjiqxghu46/06/2025 9:00 AM EDT Infusion Center Hematology/Oncology [address] [place] [address] [place] [address] IVIG q4 weeksHematology/OncologyComment on above:IVIG q4 weeksStart: 12-14-2024 End: 00-94-0989jfgrsmhjfd79/24/2025 2:00 PM EDT Infusion Center Hematology/Oncology [address] [place] [address] [place] [address] BENLYSTA -Hematology/OncologyComment on above:BENLYSTA -Start: 11-29-2024 End: 65-36-8008lupkbceqoiTrbwdtlltg/OncologyComment on above:3 mo F/U-IVIG(slow infusion per pt request/B12 +/-IV iron labStart: 11-29-2024 End: 66-95-3237Izqkcwb encounter avkgydqfy65/09/2025 8:45 AM EDT Office Visit [facility] [address] [place], [place] [address] [address] 3 mo F/U-IVIG(slow infusion per pt request/B12 +/-IV iron lab [facility] LaboratoryComment on above:3 mo F/U- IVIG(slow infusion per pt request/B12 +/-IV iron labStart: 11-20-2024 End: 17-65-4403CLM W Auto Differential panel - BloodCOMPLETE BLOOD COUNT AND DIFFERENTIAL Lab Routine Hypogammaglobulinemia (HCC) Expected: 11/20/2024, Expires: 02/19/2025[facility] Work Phone: Comment on above:Expected: 11/20/2024, Expires: 02/19/2025Start: 11-20-2024 End: 89-95-8991Yxkutqytu (Vitamin B12) [Mass/volume] in Serum or PlasmaVITAMIN B12 Lab Routine Hypogammaglobulinemia (HCC) Expected: 11/20/2024, Expires: 02/19/2025[facility] ClinicComment on above:Expected: 11/20/2024, Expires: 02/19/2025Start: 11-20-2024 End: 80-66-6220Zzeyxmkyamlox metabolic 2000 panel - Serum or PlasmaCOMPREHENSIVE METABOLIC PANEL Lab Routine Hypogammaglobulinemia (HCC) Expected: 11/20/2024, Expires: 02/19/2025[facility] ClinicComment on above:Expected: 11/20/2024, Expires: 02/19/2025Start: 11-20-2024 End: 18-96-7486Rvxjsytj [Mass/volume] in Serum or PlasmaFERRITIN Lab Routine Hypogammaglobulinemia (HCC) Expected: 11/20/2024, Expires: 02/19/2025[facility] ClinicComment on above:Expected: 11/20/2024, Expires: 02/19/2025Start: 11-20-2024 End: 20-00-7950Thzdiy [Mass/volume] in Serum or PlasmaFOLATE, SERUM Lab Routine Hypogammaglobulinemia (HCC) Expected: 11/20/2024, Expires: 02/19/2025[facility] ClinicComment on above:Expected: 11/20/2024, Expires: 02/19/2025Start: 11-20-2024 End: 50-68-9220KTVONHUQHOZHEBB,IGG,IGA,IGMIMMUNOGLOBULINS,IGG,IGA,IGM Lab Routine Hypogammaglobulinemia (HCC) Expected: 11/20/2024, Expires: 02/19/2025 [facility] CompanyComment on above:Expected: 11/20/2024, Expires: 02/19/2025Start: 26-14-5039Omiolvpfs vaccinationInfluenza Vaccine (#1)NOMS HealthcareComment on above:Postponed from 01/23/2024 (Patient Refused)Start: 11-20-2024 End: 39-79-0710Ovls and Iron binding capacity panel - Serum or PlasmaIRON AND TIBC Lab Routine Hypogammaglobulinemia (HCC) Expected: 11/20/2024, Expires: 02/19/2025[facility] ClinicComment on above:Expected: 11/20/2024, Expires: 02/19/2025Start: 11-16-2024 End: 94-44-9054tshzncoyko24/26/2025 2:00 PM EDT Infusion Center Hematology/Oncology [address] [place] [address] BENLYSTA -Hematology/OncologyComment on above:BENLYSTA -Start: 11-01-2024 End: 99-11-3833qwgeyfmljh83/11/2025 9:00 AM EDT Infusion Center Hematology/Oncology [address] [place] [address] [place] [address] IVIG q 4 weeks with B 12 inj and labHematology/OncologyComment on above:IVIG q 4 weeks with B 12 inj and labStart: 10-31-2024 End: 65-16-5487duksmqxslz42/10/2025 9:00 AM EDT Infusion Center Hematology/Oncology [address] [place] [address] [place] [address] IVIG q 4 weeks with B 12 inj and labHematology/OncologyComment on above:IVIG q 4 weeks with B 12 inj and labStart: 10-19-2024 End: 52-83-9000cenkqeuuao60/29/2025 2:00 PM EDT Infusion Center Hematology/Oncology [address] [place] [address] [place] [address] BENLYSTA - IVIG AND BENLYSTA AT LEAST 1 DAY APART FOR FUTURE APPTSHematology/Oncology Comment on above:BENLYSTA - IVIG AND BENLYSTA AT LEAST 1 DAY APART FOR FUTURE APPTSStart: 10-18-2024 End: 29-91-3338Edvmuekum Klbywnab87/28/2025 10:00 AM EDT Specialty Pharmacy [facility] [address] [place], [place] [address], [place] [address] Pharmacist, [facility]ty[facility] [address] [place] [address] [address] [place] [address] REFILL- Benlysta- PAx 02/11/25- - mult call attemptsCCF Specialty PharmacyComment on above:REFILL- Benlysta- PAx 02/11/25- - mult call attemptsStart: 10-07-2024 End: 75-48-8994Dhwron-up ceatdhace01/17/2025 8:00 AM EDT [facility] [address] [place] [address] Lynne Ni MD [address] [place] [address] follow up visitRheumatologyComment on above:follow up visit Start: 10-06-2024 End: 897491-paboojehpcqehm D3 [Mass/volume] in Serum or PlasmaVITAMIN D 25 HYDROXY Lab Routine Vitamin D deficiency Expected: 10/06/2024 (Approximate), Expires: 07/09/2025[facility] ClinicComment on above:Expected: 10/06/2024 (Approximate), Expires: 07/09/2025Start: 10-06-2024 End: 07-09-2025 reactive protein [Mass/volume] in Serum or PlasmaC-REACTIVE PROTEIN Lab Routine Elevated sed rate Elevated C-reactive protein (CRP) Expected: 10/06/2024 (Approximate), Expires: 07/09/2025[facility] ClinicComment on above:Expected: 10/06/2024 (Approximate), Expires: 07/09/2025Start: 10-06-2024 End: 96-81-9229IMP panel - Blood by Automated countCOMPLETE BLOOD COUNT Lab Routine Anemia of chronic disease Expected: 10/06/2024 (Approximate), Expires: 07/09/2025[facility] ClinicComment on above:Expected: 10/06/2024 (Approximate), Expires: 07/09/2025Start: 10-06-2024 End: 42-93-0125Pbyqzrbexhpqs metabolic 2000 panel - Serum or PlasmaCOMPREHENSIVE METABOLIC PANEL Lab Routine Elevated LFTs Expected: 10/06/2024 (Approximate), Expires: 07/09/2025[facility] Work Phone: Comment on above:Expected: 10/06/2024 (Approximate), Expires: 07/09/2025Start: 10-06-2024 End: 81-22-5546Clyeezdzznb sedimentation rateSEDIMENTATION RATE, WESTERGREN Lab Routine Elevated sed rate Elevated C-reactive protein (CRP) Expected: 10/06/2024 (Approximate), Expires: 07/09/2025[facility] ClinicComment on above:Expected: 10/06/2024 (Approximate), Expires: 07/09/2025Start: 2024 End: 59-26-4374cerebrwpufRozthputpq/OncologyComment on above:IVIG q 4 weeks with B 12 inj and labBENLYSTA - IVIG AND BENLYSTA AT LEAST 1 DAY APART FOR FUTURE APPTSREFILL- Benlysta- PAx 02/11/25- - LVM 09/20, 09/25, 09/27Start: 10-02-2024 End: 72-10-1374ijxebosxyu01/12/2025 9:00 AM EDT Infusion Center Hematology/Oncology [address] [place] [address] [address] [id number] IVIG q 4 weeks with B 12 inj and labHematology/OncologyComment on above:IVIG q 4 weeks with B 12 inj and labStart: 09-28-2024 End: 65-41-5307Ufhhenfpc Tvzcddir10/08/2025 10:00 AM EDT Specialty Pharmacy [facility] [address] [place], [place] [id number] Pharmacist, [facility] [address] [place] [address] [address] [address] REFILL- Benlysta- PAx 02/11/25- - LVM 09/20, 5CCF Specialty PharmacyComment on above:REFILL- Benlysta- PAx 02/11/25- - LVM 09/20, tart: 09-25-2024 End: 42-26-4026Yntfrgbzs Sqqauqbg84/05/2025 10:15 AM EDT Specialty Pharmacy [facility] [address] [place] [address] Pharmacist, [facility] [address] [place] [address] DR [address], [facility] 22 REFILL- Benlysta- PAx 02/11/25- - LVM 09/20CCF Specialty PharmacyComment on above:REFILL- Benlysta- PAx 02/11/25- - LVM tart: 09-20-2024 End: 71-92-2123Krdybjhbe Eftcundu08/30/2025 10:15 AM EDT Specialty Pharmacy [facility] [address] [place], [place] [address] [address] Pharmacist, [facility] [address] [place] [address] [address] [address] 22 REFILL- Benlysta- PAx 02/11/25- - pend new RxCC Specialty PharmacyComment on above:REFILL- Benlysta- PAx 02/11/25 - pend new RxStart: 09-19-2024 End: 30-99-9766Ppohwsf encounter procedureGMIT MAIN WALKERComment on above:hEDS with concerns and wants CTD evaluationStart: 09-18-2024 End: 30-05-9585Msigbddzj PharmacyCCF Specialty PharmacyComment on above:REFILL- Benlysta- PAx 02/11/25- BENLYSTAStart: 09-06-2024 End: 05-51-9435uaazlditrs48/16/2025 9:30 AM EDT Infusion Center Hematology/Oncology [address] [place] [address] [place] [address] 3 mo F/U-IVIG(slow infusion per pt request/B12 +/-IV ironHematology/OncologyComment on above:3 mo F/U-IVIG(slow infusion per pt request/B12 +/-IV ironStart: 09-06-2024 End: 94-91-4581Tfmyrn-up encounterHematology/OncologyComment on above:3 month follow up IVIG for hypogammaglobulinemia + p62Tgxoo: 09-06-2024 End: 30-94-9680Vuomued encounter hpmsnhpda80/16/2025 8:45 AM EDT Office Visit [facility] [address] [place] [address] 3 month follow up IVIG for hypogammaglobulinemia + v48Hdhmg [facility] LaboratoryComment on above:3 month follow up IVIG for hypogammaglobulinemia + h22Zrrcl: 09-05-2024 End: 01-74-8010Kjcxux-up encounterHematology/OncologyComment on above:3 month follow up IVIG for hypogammaglobulinemia + i01Lillk: 09-05-2024 End: 63-70-4545Sdvaczl encounter ayykaqhqg22/15/2025 8:45 AM EDT Office Visit [facility] [address] [facility] [place] [place] [address] 3 month follow up IVIG for hypogammaglobulinemia + h59Yshjf [facility] LaboratoryComment on above:3 month follow up IVIG for hypogammaglobulinemia + f18Psaau: 09-04-2024 End: 42-42-3570Hgcuuqd encounter rxauifahl98/14/2025 3:20 PM EDT Office Visit [facility] [address] [facility] [address] [place] [address] Gordo Barfield MD [address] [facility] [address] [place] [address] ArrivedNOMS SELVIN HARTomment on above:ArrivedStart: 08-28-2024 End: 61-85-5039TGX W Auto Differential panel - BloodCOMPLETE BLOOD COUNT AND DIFFERENTIAL Lab Routine Vitamin B12 deficiency Other iron deficiency anemia Hypogammaglobulinemia (HCC) Expected: 08/28/2024, Expires: 11/27/2024[facility] Work Phone: Comment on above:Expected: 08/28/2024, Expires: 11/27/2024Start: 08-28-2024 End: 29-03-7541Gnydzdlig (Vitamin B12) [Mass/volume] in Serum or PlasmaVITAMIN B12 Lab Routine Vitamin B12 deficiency Other iron deficiency anemia Hypogammaglobulinemia (HCC) Expected: 08/28/2024, Expires: 11/27/2024[facility] ClinicComment on above:Expected: 08/28/2024, Expires: 11/27/2024Start: 08-28-2024 End: 30-02-4507Japfltrhmghjq metabolic 2000 panel - Serum or PlasmaCOMPREHENSIVE METABOLIC PANEL Lab Routine Vitamin B12 deficiency Other iron deficiency anemia Hypogammaglobulinemia (HCC) Expected: 08/28/2024, Expires: 11/27/2024[facility] ClinicComment on above:Expected: 08/28/2024, Expires: 11/27/2024Start: 08-28-2024 End: 25-06-6828Nagpdzfo [Mass/volume] in Serum or PlasmaFERRITIN Lab Routine Vitamin B12 deficiency Other iron deficiency anemia Hypogammaglobulinemia (HCC) Expected: 08/28/2024, Expires: 11/27/2024[facility] ClinicComment on above: Expected: 08/28/2024, Expires: 11/27/2024Start: 08-28-2024 End: 94-84-5592Kxhtkp [Mass/volume] in Serum or PlasmaFOLATE, SERUM Lab Routine Vitamin B12 deficiency Other iron deficiency anemia Hypogammaglobulinemia(HCC) Expected: 08/28/2024, Expires: 11/27/2024[facility] ClinicComment on above: Expected: 08/28/2024, Expires: 11/27/2024Start: 08-28-2024 End: 97-28-0001AgD [Mass/volume] in Serum or PlasmaIMMUNOGLOBULIN G Lab Routine Vitamin B12 deficiency Other iron deficiency anemia Hypogammaglobulinemia (HCC) Expected: 08/28/2024, Expires: 11/27/2024[facility] ClinicComment on above: Expected: 08/28/2024, Expires: 11/27/2024Start: 08-28-2024 End: 81-46-5090Vwoc and Iron binding capacity panel - Serum or PlasmaIRON AND TIBC Lab Routine Vitamin B12 deficiency Other iron deficiency anemia Hypogammaglobulinemia(HCC) Expected: 08/28/2024, Expires: 11/27/2024[facility] ClinicComment on above:Expected: 08/28/2024, Expires: 11/27/2024Start: 08-22-2024 End: 85-52-1005Dlrxhcz encounter /01/2025 1:30 PM EDT Office Visit [facility] [address] [place] [phone] Raj Kitchen MD [address] [place] [address] [facility] ENDOCRINOLOGYStart: 08-22-2024 End: 94-39-2774Cgrnoxunk Mmttkthn54/01/2025 10:15 AM EDT Specialty Pharmacy [facility] [address] [place] [address] Pharmacist, [facility] [address] [place] [address] [address] [address] REFILL- Benlysta- PAx 02/11/25 lv 08/17CC Specialty PharmacyComment on above:REFILL- Benlysta- PAx 02/11/25 lvm 08/17Start: 08-17-2024 End: 73-37-8204Skigxndlk Hfzzjyyz85/27/2025 10:00 AM EDT Specialty Pharmacy [facility] [address] [place] [address] Pharmacist, [facility]ty[facility] [address] [place] [address] [address] [place], [place] [address] REFILL- Benlysta- PAx 02/11/25- CC Specialty PharmacyComment on above:REFILL- Benlysta- PAx 02/11/25- Start: 08-15-2024 End: 48-33-1829Axuawsp encounter cydfyfulc75/25/2025 10:20 AM EDT Office Visit [facility] [address] [place] [address] Gordo Barfield MD [address] [place] [address] [facility] CI ENTStart: 08-08-2024 End: 69-78-9644frdgrbiigm00/18/2025 9:30 AM EDT Infusion Center Hematology/Oncology [address] [place] [address] [place] [address] IVIG for hypogammaglobulinemia + v67Hqcznruykt/OncologyComment on above:IVIG for hypogammaglobulinemia + s81Gjerl: 08-01-2024 End: 72-58-5867Jbekojv encounter tiyjoamkl72/11/2025 10:30 AM EDT Office Visit [facility] [address] [place] [address] Bernabe English MD [address] [place] [address] [facility] SWS DERMStart: 07-25-2024 End: 14-10-4621Ulgmyxlck PharmacyCCF Specialty PharmacyComment on above:REFILL- Benlysta- PAx 02/11/25- daysArrivedStart: 07-20-2024 End: 44-57-2656xrlkdajbgb26/27/2025 11:30 AM EST [facility] Infectious Disease [address] [place] [phone] Alhaji Victoria DO [address] [place] [address] Positive blood cultures [R78.81]Infectious DiseaseComment on above:Positive blood cultures [R78.81]Start: 07-20-2024 End: 62-62-6253Fruarry encounter hllxwrmyu35/27/2025 11:30 AM EST Office Visit Infectious Disease [address] [place] [phone] Alhaji Victoria DO [address] [place] [address] Positive blood cultures [R78.81]Infectious DiseaseComment on above: Positive blood cultures [R78.81]Start: 75-57-1061OnjqknrddMemorial Hospitaltart: 07-13-2024 End: 87-47-5283Wznapoe encounter vdplqedpj90/20/2025 9:20 AM EST Office Visit [place] [address] [place] [phone] Lois Holm MD [address] [facility] [address] [place] [address] [facility]: 07-12-2024 End: 43-32-5664Evilrmb encounter ladpzzbdh06/19/2025 2:40 PM EST Office Visit Otolaryngology [address] [place] [address] Marky Gasca PA-C [address] [place], [place] [phone] RecurrentThrush.OtolaryngologyComment on above:Recurrent Thrush.Start: 07-11-2024 End: 43-04-8615mfjucfkppr74/18/2025 9:30 AM EST Infusion Center Hematology/Oncology [address] [place] [address] IVIG for hypogammaglobulinemia + x62Eonlnqycdm/OncologyComment on above:IVIG for hypogammaglobulinemia + q48Vuixv: 07-03-2024 End: 687874-sjgocdurxsvcna D3 [Mass/volume] in Serum or PlasmaVITAMIN D 25 HYDROXY Lab Routine Vitamin D deficiency Expected: 07/03/2024 (Approximate), Expires: 04/02/2025[facility] ClinicComment on above:Expected: 07/03/2024 (Approximate), Expires: 04/02/2025Start: 07-03-2024 End: 04-02-2025 reactive protein [Mass/volume] in Serum or PlasmaC-REACTIVE PROTEIN Lab Routine Elevated sed rate Elevated C-reactive protein (CRP) Expected: 07/03/2024 (Approximate), Expires: 04/02/2025[facility] ClinicComment on above:Expected: 07/03/2024 (Approximate), Expires: 04/02/2025Start: 07-03-2024 End: 56-91-9883BJQ panel - Blood by Automated countCOMPLETE BLOOD COUNT Lab Routine Anemia of chronic disease Expected: 07/03/2024 (Approximate), Expires: 04/02/2025[facility] ClinicComment on above:Expected: 07/03/2024 (Approximate), Expires: 04/02/2025Start: 07-03-2024 End: 98-38-6487Fykquqfeaayik metabolic 2000 panel - Serum or PlasmaCOMPREHENSIVE METABOLIC PANEL Lab Routine Elevated LFTs Expected: 07/03/2024 (Approximate), Expires: 04/02/2025[facility] Work Phone: Comment on above:Expected: 07/03/2024 (Approximate), Expires: 04/02/2025Start: 07-03-2024 End: 22-65-6811Qhshymzvnqe sedimentation rateSEDIMENTATION RATE, WESTERGREN Lab Routine Elevated sed rate Elevated C-reactive protein (CRP) Expected: 07/03/2024 (Approximate), Expires: 04/02/2025[facility] ClinicComment on above:Expected: 07/03/2024 (Approximate), Expires: 04/02/2025Start: 06-29-2024 End: 19-52-5873Ojmzhjgsp Zlmzkqsv79/06/2025 10:00 AM EST Specialty Pharmacy [facility] [address] [place] [address] Pharmacist, Specialtygroup [address] [place] [address] [place], [place] [address] REFILL- Benlysta- PAx 02/11/25- CC Specialty PharmacyComment on above:REFILL- Benlysta- PAx 02/11/25Start: 06-26-2024 End: 66-79-4002Npundnd evaluation of patient and ezeeaj1106/26/2024 9:45 AM EST Nurse Visit Hematology/Oncology [address] [facility] [place] [address] Hoda Marshall Nurse Sawyer [address] [place] [address] W31Ijtudvdwmz/OncologyComment on above:S19Ddrup: 06-26-2024 End: 43-67-6950rhvaidnjsiEqlsirsdzp/OncologyComment on above:RTC 3 monthIVIG for hypogammaglobulinemiaStart: 06-26-2024 End: 25-83-9116Hqjojjk encounter ntdfguilx27/03/2025 8:45 AM EST Office Visit [facility] [address] [place] [address] labsNoCharleston [facility] Center LaboratoryComment on above:labsStart: 06-14-2024 End: 09-05-0893Bkxzrim evaluation of patient and reportReinholds Gastroenterology and Endoscopy CenterComment on above:Abdominal Pain/Diarrhea/Bandar S BIRD SITTER ordered/Patient has prep thru MyChart//ccSIBO - Abdominal Pain/Diarrhea/Bandar S BIRD SITTER ordered/Patient has prep thru MyChart//cc Order in Scanned DocumentsStart: 06-13-2024 End: 32-03-0301Idiffgphr (Vitamin B12) [Mass/volume] in Serum or PlasmaCleveland ClinicComment on above:Expected: 06/13/2024, Expires: 09/12/2024Start: 06-13-2024 End: 37-68-9112Rpauvhro [Mass/volume] in Serum or PlasmaCleveland Clinic Foundation Work Phone: Comment on above:Expected: 06/13/2024, Expires: 09/12/2024Start: 06-13-2024 End: 03-99-4613Sfrplc [Mass/volume] in Serum or PlasmaCleveland ClinicComment on above:Expected: 06/13/2024, Expires: 09/12/2024Start: 06-13-2024 End: 14-48-7625Ddqi and Iron binding capacity panel - Serum or PlasmaCleveland ClinicComment on above:Expected: 06/13/2024, Expires: 09/12/2024Start: 06-13-2024 End: 48-53-8436Fuonyut evaluation of patient and ldjxqj3106/13/2024 9:45 AM EST Nurse Visit Hematology/Oncology [address] [address] [phone] Hoda Marshall Nurse Sawyer [address] [place] [address] U51Phidsqriih/OncologyComment on above:S77Iinlt: 06-13-2024 End: 89-17-4717zfrqtuoyzdSovndbvsnm/OncologyComment on above:RTC 3 monthIVIG for hypogammaglobulinemiaStart: 06-13-2024 End: 20-40-0297Leefswz encounter aqiwnwinr74/21/2025 8:45 AM EST Office Visit [facility] [address] [place] [address] labsNortProMedica [facility] LaboratoryComment on above:labsStart: 06-06-2024 End: 01-70-5844QG Breast - bilateral ScreeningBilateral screening mammogram Imaging Routine Breast cancer screening by mammogram Expected: 06/06/2024 (Approximate), Expires: 08/04/2025[facility] Work Phone: Comment on above:Expected: 06/06/2024 (Approximate), Expires: 08/04/2025Start: 06-06-2024 End: 05-34-3067OO Breast - left DiagnosticLeft diagnostic mammogram Imaging Routine Breast nodule Expected: 06/06/2024 (Approximate), Expires: 08/04/2025 [facility] HealthcareComment on above:Expected: 06/06/2024 (Approximate), Expires: 08/04/2025Start: 06-06-2024 End: 79-07-5287Yuucupw encounter procedureNOMS BCP OBComment on above:REFILL- Benlysta- PAx 02/11/25Start: 05-29-2024 End: 78-08-1895Qvoouwe evaluation of patient and udgffq9405/29/2024 9:30 AM EST Nurse Visit Hematology/Oncology [address] [place] [address] Hoda Marshall Nurse Sawyer [address] [place] [address] I58Fssxmbpcnu/OncologyComment on above:D09Ncuvw: 12-27-2024 End: 08-43-4278abnuwehjqd29/27/2024 9:30 AM EST Infusion Center Hematology/Oncology [address] [place] [address] IVIG for hypogammaglobulinemiaHematology/OncologyComment on above:IVIG for hypogammaglobulinemiaStart: 05-12-2024 End: 87-95-6025Lotihfpnc Erdpztmz21/20/2024 10:00 AM EST Specialty Pharmacy [facility] [address] [place] [address] Drive [id number], [place] [address] Pharmacist, [facility] [address] [place] [address] [address] [place] [address] REFILL- Benlysta- PAx 02/11/25CC Specialty PharmacyComment on above:REFILL- Benlysta- PAx 02/11/25Start: 04-28-2024 End: 93-05-2821YJ.doppler Extremity arteries - bilateral for physiologic artery studyVas art doppler lwr bilat mult lev/PVR Vascular Ultrasound Routine Peripheral vascular disease, unspecified (CMS-HCC) Cold extremities Systemic lupus erythematosus (CMS-HCC) Expected: 04/28/2024, Expires: 04/28/2025[facility] Work Phone: Comment on above:Expected: 04/28/2024, Expires: 04/28/2025Start: 04-24-2024 End: 49-91-3750Edpbubb evaluation of patient and koxsvc3304/24/2024 9:30 AM EST Nurse Visit Hematology/Oncology [address] [address] Hoda Marshall Nurse Sawyer [address] [place] [address] B30Drrmwpoxcj/OncologyComment on above:E45Bceiq: 04-18-2024 End: 60-60-3550Ltlcvll evaluation of patient and reportReinholds Gastroenterology and Endoscopy CenterComment on above:referSiboStart: 04-14-2024 End: 68-10-7330jvbhhujrpiVrdiziozfr/OncologyComment on above:IVIG for hypogammaglobulinemiaREFILL- Benlysta- PAx 02/11/25- Start: 04-11-2024 End: 67-94-6944Qxormnltw PharmacyCCF Specialty PharmacyComment on above:REFILL- Benlysta- PAx 02/11/25- NCA 09/2024- REFILL- Benlysta- PAx 02/11/25- Start: 04-06-2024 End: 86-70-0285BT.doppler Extremity arteries - bilateral for physiologic artery studyVas art doppler lwr bilat mult lev/PVR Vascular Ultrasound Routine Cold extremities Pain of lower extremity, unspecified laterality Systemic lupus erythematosus (CMS-HCC) Expected: 04/06/2024, Expires: 2025[facility] Work Phone: Comment on above:Expected: 04/06/2024, Expires: 2025Start: 03-28-2024 End: 38-51-7177dovtrubuze00/05/2024 1:00 PM [facility] Hematology/Oncology [address] [place] [address] [place] [address] Vera Najera MD [address] [place] [address] [place] [address] 13 wk virtual after labs last weekHematology/OncologyComment on above:13 wk virtual after labs last weekStart: 03-23-2024 End: 99-21-6539oPGI in Blood by Coagulation assayAPTT Lab Routine Menorrhagia with regular cycle Expected: 03/23/2024 (Approximate), Expires: 03/23/2025N[facility] HealthcareComment on above:Expected: 03/23/2024 (Approximate), Expires: 03/23/2025Start: 03-23-2024 End: 30-95-5784WI for pregnancyUS PELVIS-TRANSVAG IF INDICATED Imaging Routine Menorrhagia with regular cycle Expected: 03/23/2024(Approximate), Expires: 03/23/2025[facility] HealthcareComment on above:Expected: 03/23/2024 (Approximate), Expires: 03/23/2025Start: 03-21-2024 End: 24-01-3674Uwqkqjm evaluation of patient and fmzssx5603/21/2024 11:45 AM EDT Nurse Visit Hematology/Oncology [address] [place] [address] Hoda Marshall Nurse Sawyer [address] [place] [address] l83Tfzunjobji/OncologyComment on above:a40Fjcua: 03-21-2024 End: 26-15-8345Bkwrnlv encounter wkcgqtuqd49/29/2024 11:15 AM EDT Office Visit [facility] [address] [place] [address] LAbNortProMedica [facility] Hospital LaboratoryComment on above:LAbStart: 03-20-2024 End: 281100-davhaqgcckjzqk D3 [Mass/volume] in Serum or PlasmaVITAMIN D 25 HYDROXY Lab Routine Vitamin D deficiency Expected: 03/20/2024 (Approximate), Expires: 12/29/2024[facility] ClinicComment on above:Expected: 03/20/2024 (Approximate), Expires: 12/29/2024Start: 03-20-2024 End: 32-72-0735CZMOV TB SCREENBLOOD TB SCREEN Lab Routine Screening-pulmonary TB Expected: 03/20/2024 (Approximate), Expires: 12/29/2024[facility] ClinicComment on above:Expected: 03/20/2024 (Approximate), Expires: 12/29/2024Start: 03-20-2024 End: 12-29-2024 reactive protein [Mass/volume] in Serum or PlasmaC-REACTIVE PROTEIN Lab Routine Elevated C-reactive protein (CRP) Elevated sed rate Expected: 03/20/2024 (Approximate), Expires: 12/29/2024[facility] ClinicComment on above:Expected: 03/20/2024 (Approximate), Expires: 12/29/2024Start: 03-20-2024 End: 16-85-3500ZGF W Auto Differential panel - BloodCOMPLETE BLOOD COUNT AND DIFFERENTIAL Lab Routine Megaloblastic anemia due to vitamin B12 deficiency Elevated sed rate Obstructive sleep apnea syndrome Expected: 03/20/2024 (Approximate), Expires: 06/19/2024[facility]:Expected: 03/20/2024 (Approximate), Expires: 06/19/2024Start: 03-20-2024 End: 98-50-0470Lrqwxlvam (Vitamin B12) [Mass/volume] in Serum or PlasmaVITAMIN B12 Lab Routine Megaloblastic anemia due to vitamin B12 deficiency Elevated sed rate Obstructive sleep apnea syndrome Expected: 03/20/2024 (Approximate), Expires: 06/19/2024[facility] CampusComment on above:Expected: 03/20/2024 (Approximate), Expires: 06/19/2024Start: 03-20-2024 End: 35-35-9276Apipltqtssvlh metabolic 2000 panel - Serum or PlasmaCOMPREHENSIVE METABOLIC PANEL Lab Routine Megaloblastic anemia due to vitamin B12 deficiency Elevated sed rate Obstructive sleep apnea syndrome Expected: 03/20/2024 (Approximate), Expires: 06/19/2024[facility] Work Phone: Comment on above:Expected: 03/20/2024 (Approximate), Expires: 06/19/2024Start: 03-20-2024 End: 03-40-8154Yeztfhvilvi sedimentation rateSEDIMENTATION RATE, WESTERGREN Lab Routine Elevated C-reactive protein (CRP) Elevated sed rate Expected: 03/20/2024 (Approximate), Expires: 12/29/2024[facility] Work Phone: Comment on above:Expected: 03/20/2024 (Approximate), Expires: 12/29/2024Start: 03-20-2024 End: 04-99-0742Cgpgxhmr [Mass/volume] in Serum or PlasmaFERRITIN Lab Routine Megaloblastic anemia due to vitamin B12 deficiency Elevated sed rate Obstructive sleep apnea syndrome Expected: 03/20/2024 (Approximate), Expires: 06/19/2024 [facility]:Expected: 03/20/2024 (Approximate), Expires: 06/19/2024Start: 03-20-2024 End: 96-61-3130Aeqtbq [Mass/volume] in Serum or PlasmaFOLATE, SERUM Lab Routine Megaloblastic anemia due to vitamin B12 deficiency Elevated sed rate Obstructive sleep apnea syndrome Expected: 03/20/2024 (Approximate), Expires: 06/19/2024 [facility]:Expected: 03/20/2024 (Approximate), Expires: 06/19/2024Start: 03-20-2024 End: 85-05-0531ODPIYLDTZGXOQSB,IGG,IGA,IGMIMMUNOGLOBULINS,IGG,IGA,IGM Lab Routine Megaloblastic anemia due to vitamin B12 deficiency Elevatedsed rate Obstructive sleep apnea syndrome Expected: 03/20/2024 (Approximate), Expires: 06/19/2024[facility] ClinicComment on above:Expected: 03/20/2024 (Approximate), Expires: 06/19/2024Start: 03-20-2024 End: 29-94-5200Lizl and Iron binding capacity panel - Serum or PlasmaIRON AND TIBC Lab Routine Megaloblastic anemia due to vitamin B12 deficiency Elevated sed rate Obstructive sleep apnea syndrome Expected: 03/20/2024 (Approximate), Expires: 06/19/2024[facility] ClinicComment on above:Expected: 03/20/2024 (Approximate), Expires: 06/19/2024Start: 03-18-2024 End: 53-26-4385Rxabmeh encounter fndraemjb13/26/2024 9:00 AM EDT [facility] Rheumatology [address] [place] [address] Lynne Ni MD [address] [place], [place] [id number] May offer 03/18/24 Sat REJ 4th floor in person/virtual/phone for lupusRheumatologyComment on above:May offer 03/18/24 Sat REJ 4th floor in person/virtual/phone for lupusStart: 42-93-4764Dfpjjry referralMarietta Osteopathic Clinic Work Phone: Start: 03-16-2024 End: 07-52-2137KI Breast - bilateralBilateral breast US complete Imaging Routine Nipple discharge Expected: 03/16/2024, Expires: 05/16/2025[facility] Work Phone: comment on above:Expected: 03/16/2024, Expires: 05/16/2025Start: 03-16-2024 End: 79-18-8665Cfvxpcqke PharmacyEPHRA[facility] Specialty PharmacyComment on above:REFILL- Benlysta- PAx 02/11/25- NCA 09/2024-l/m 03/13ArrivedStart: 03-13-2024 End: 56-77-4378Jtemvwccu PharmacyEPHRAIM MCD[facility] Specialty PharmacyComment on above:REFILL- Benlysta- PAx 02/04/24- NCA 09/2024-, ND 02/23-renewal sub 02/13REFILL- Benlysta- PAx 02/11/25- NCA 09/2024-,Start: 02-22-2024 End: 84-25-0072Jwpovci evaluation of patient and pjlhjf1202/22/2024 11:45 AM EDT Nurse Visit Hematology/Oncology [address] [place] [address] [phone] Hoda Marshall Nurse Sawyer [address] [facility] [place] [address] d79Wmxujxjuex/OncologyComment on above:t40Fbsao: 02-22-2024 End: 27-78-8050Pooburb encounter xqciqglhn17/01/2024 11:15 AM EDT Office Visit [facility] [address] [facility] [place] [address] LAbNortProMedica [facility] Hospital LaboratoryComment on above:LAbStart: 02-21-2024 End: 98-62-4861Willmrp evaluation of patient and bgdldo4102/21/2024 10:45 AM EDT Nurse Visit Hematology/Oncology [address] [place] [address] [phone] Hoda Marshall Nurse Sawyer [address] [place] [address] y65Orcnqrbeta/OncologyComment on above:i68Vgqun: 02-21-2024 End: 86-71-1229Ivwqnqs encounter ntuuvgwom70/30/2024 10:30 AM EDT Office Visit [facility] [address] [place] [address] LAbNoCharleston Area Medical Center LaboratoryComment on above:LAbStart: 03-57-6134CqolzjdmsMemorial Hospitaltart: 02-14-2024 End: 25-24-6836Ohrxaj-up encounterNeurologyComment on above:Cpap follow up REFILL- Benlysta- PAx 02/04/24- NCA 09/2024-, ND 02/23Start: 02-09-2024 End: 51-70-6924Livlmcl encounter dfbgimwzt87/18/2024 8:00 AM EDT Office Visit [facility] [address] [facility] [address] CHERY [address] [place] [address], [place] [phone] Zita Cuellar, [employer] [address] [facility] [address] Chery [address] [place] [address] [phone] (Work) [facility] NEURO 210Start: 01-27-2024 End: 51-84-7802Ztsgetgg identified in Blood by CultureBLOOD CULTURE Microbiology Routine Pseudomonas infection Expected: 01/27/2024, Expires: 04/27/2024 [facility] Work Phone: comment on above:Expected: 01/27/2024, Expires: 04/27/2024Start: 01-27-2024 End: 23-46-1994Ojbzer-up aedbxaidt73/05/2024 10:00 AM EDT [facility] Infectious Disease [address] [place] [address] Alhaji Victoria DO [facility] [address] [facility] [place] [address] follow upInfectious DiseaseComment on above:follow up Start: 01-25-2024 End: 14-93-4069Orxrlxe evaluation of patient and reportHematology/Oncology Comment on above:b12B12(change date)Start: 01-25-2024 End: 97-55-5500Wgyzhxu encounter procedureNortProMedica Monroe Regional Hospital LaboratoryComment on above:LAbNO LAB ORDERS LAbStart: 91-80-1553Jjbotqvyu vaccinationInfluenza Vaccine (#1)[facility] HealthcareComment on above:Postponed from 01/22/2023 (Patient Refused)Start: 19-96-1681Hvsjz-19 Vaccine ( season)Covid-19 Vaccine ()[facility] 01-23-2024 Covid-19 Vaccine ()Covid-19 Vaccine () [facility]: 70-87-1322Oqvtefmxs vaccinationDayton Osteopathic Hospitaltart: 01-20-2024 End: 49-19-6797Cmnfsuyvc PharmacyCCF Specialty PharmacyComment on above:refill - benlysta- NCA 09/2024-- pa exp: 02/04/24-pseudomonas oryzihabitans in my breastStart: 12-27-2023 End: 69-18-9052Gbbocwm evaluation of patient and axcijg5612/27/2023 12:00 PM EDT Nurse Visit Hematology/Oncology [address] [place] [address] Hoda Marshall Nurse Sawyer [address] [place] [address] w51Fwgjqsglle/OncologyComment on above:y27Xidbx: 12-27-2023 End: 39-87-7549Crhngc-up mxoqtdmvb11/05/2024 11:30 AM EDT Visit (SP) Office Hematology/Oncology [address] [place] [address] Neda Hill PA-C [address] [place] [address] 13 week follow up, labs 1 week beforeHematology/OncologyComment on above:13 week follow up, labs 1 week beforeStart: 12-27-2023 End: 61-58-2443Fnxeafk encounter wvkbpicoq20/05/2024 11:15 AM EDT Office Visit [facility] [address] [place] [address] LAbNortProMedica [facility] Hospital LaboratoryComment on above:LAbStart: 12-13-2023 End: 73-91-3281Vbnzaeeti Eyonmuob91/22/2024 10:00 AM EDT Specialty Pharmacy [facility] [address] [place] [address] Drive [id number] [address] Pharmacist, [facility] [address] [place] [address] [address] [place], [place] [address] refill - benlysta- NCA - pa exp: 02/04/24-[facility] Specialty PharmacyComment on above:refill - benlysta- NCA - pa exp: 02/04/24-Start: 12-10-2023 End: 66-57-8913Qkcbgq-up paeuzdvus97/19/2024 10:45 AM EDT Visit (SP) Office Hematology/Oncology [address] [place] [address] Vera Najera MD [address] [place] [address] 13 week follow up, labs 1 week beforeHematology/Oncology Comment on above:13 week follow up, labs 1 week beforeStart: 12-04-2023 End: 161039-jrcouukodfgpkg D3 [Mass/volume] in Serum or PlasmaVITAMIN D 25 HYDROXY Lab Routine Vitamin D deficiency Expected: 12/04/2023 (Approximate), Expires: 09/03/2024[facility] Work Phone: Comment on above:Expected: 12/04/2023 (Approximate), Expires: 09/03/2024Start: 12-04-2023 End: 09-03-2024 reactive protein [Mass/volume] in Serum or PlasmaC-REACTIVE PROTEIN Lab Routine Elevated sed rate Elevated C-reactive protein (CRP) Expected: 12/04/2023 (Approximate), Expires: 09/03/2024[facility] Work Phone: Comment on above:Expected: 12/04/2023 (Approximate), Expires: 09/03/2024Start: 12-04-2023 End: 93-14-6062QBW panel - Blood by Automated countCOMPLETE BLOOD COUNT Lab Routine Anemia of chronic disease Expected: 12/04/2023 (Approximate), Expires: 09/03/2024[facility] Work Phone: Comment on above:Expected: 12/04/2023 (Approximate), Expires: 09/03/2024Start: 12-04-2023 End: 26-13-0417Kvmygoztkhplk metabolic 2000 panel - Serum or PlasmaCOMPREHENSIVE METABOLIC PANEL Lab Routine Elevated LFTs Expected: 12/04/2023 (Approximate), Expires: 09/03/2024[facility] Work Phone: Comment on above:Expected: 12/04/2023 (Approximate), Expires: 09/03/2024Start: 12-04-2023 End: 00-65-5388Uexwsocduzf sedimentation rateSEDIMENTATION RATE, WESTERGREN Lab Routine Elevated sed rate Elevated C-reactive protein (CRP) Expected: 12/04/2023 (Approximate), Expires: 09/03/2024[facility] Work Phone: Comment on above:Expected: 12/04/2023 (Approximate), Expires: 09/03/2024Start: 12-03-2023 End: 08-10-9495Ogzsbol evaluation of patient and axxkzg3512/03/2023 11:00 AM EDT Nurse Visit Hematology/Oncology [address] [place] [address] Hoda Marshall Nurse Sawyer [address] [address] a45Cbyyhuwbjq/OncologyComment on above:f15Ljlga: 12-03-2023 End: 61-44-8276Cgblobw encounter wutrssyec99/12/2024 10:45 AM EDT Office Visit [facility] [address] [address] [facility] LaboratoryComment on above:labStart: 12-02-2023 End: 30-74-5853UOC W Auto Differential panel - BloodCOMPLETE BLOOD COUNT AND DIFFERENTIAL Lab Routine Megaloblastic anemia due to vitamin B12 deficiency High total serum IgM Expected: 12/02/2023 (Approximate), Expires: 09/08/2024 [facility] Work Phone: Comment on above:Expected: 12/02/2023 (Approximate), Expires: 09/08/2024Start: 12-02-2023 End: 17-26-5865Kvfxqzxis (Vitamin B12) [Mass/volume] in Serum or PlasmaVITAMIN B12 Lab Routine Megaloblastic anemia due to vitamin B12 deficiency High total serum IgM Expected: 12/02/2023 (Approximate), Expires: 09/08/2024[facility] Work Phone: Comment on above:Expected: 12/02/2023 (Approximate), Expires: 09/08/2024Start: 12-02-2023 End: 41-29-5525Nfsqtlvlwpohk metabolic 2000 panel - Serum or PlasmaCOMPREHENSIVE METABOLIC PANEL Lab Routine Megaloblastic anemia due to vitamin B12 deficiency High total serum IgM Expected: 12/02/2023 (Approximate), Expires: 09/08/2024 [facility] Work Phone: Comment on above:Expected: 12/02/2023 (Approximate), Expires: 09/08/2024Start: 12-02-2023 End: 52-97-6103Erarrfuoppm sedimentation rateSEDIMENTATION RATE, WESTERGREN Lab Routine Megaloblastic anemia due to vitamin B12 deficiency High total serum IgM Expected: 12/02/2023 (Approximate), Expires: 03/02/2024[facility] Work Phone: Comment on above:Expected: 12/02/2023 (Approximate), Expires: 03/02/2024Start: 12-02-2023 End: 30-20-4698Ainnnbwm [Mass/volume] in Serum or PlasmaFERRITIN Lab Routine Megaloblastic anemia due to vitamin B12 deficiency High total serum IgM Expecte d: 12/02/2023 (Approximate), Expires: 09/08/2024[facility] Work Phone: Comment on above:Expected: 12/02/2023 (Approximate), Expires: 09/08/2024Start: 12-02-2023 End: 06-04-6719Jerxcs [Mass/volume] in Serum or PlasmaFOLATE, SERUM Lab Routine Megaloblastic anemia due to vitamin B12 deficiency High total serum IgM Ex pected: 12/02/2023 (Approximate), Expires: 09/08/2024[facility] Work Phone: Comment on above:Expected: 12/02/2023 (Approximate), Expires: 09/08/2024Start: 12-02-2023 End: 29-24-6693XiL [Mass/volume] in Serum or PlasmaIMMUNOGLOBULIN A Lab Routine Megaloblastic anemia due to vitamin B12 deficiency High total serum IgM Expected: 12/02/2023 (Approximate), Expires: 03/02/2024[facility] Work Phone: Comment on above:Expected: 12/02/2023 (Approximate), Expires: 03/02/2024Start: 12-02-2023 End: 03-80-3865SfU [Units/volume] in Serum or PlasmaIMMUNOGLOBULIN E Lab Routine Megaloblastic anemia due to vitamin B12 deficiency High total serum IgM Expected: 12/02/2023 (Approximate), Expires: 03/02/2024[facility] Work Phone: Comment on above:Expected: 12/02/2023 (Approximate), Expires: 03/02/2024Start: 12-02-2023 End: 81-19-2735VaO [Mass/volume] in Serum or PlasmaIMMUNOGLOBULIN G Lab Routine Megaloblastic anemia due to vitamin B12 deficiency High total serum IgM Expected: 12/02/2023 (Approximate), Expires: 03/02/2024[facility] Work Phone: Comment on above:Expected: 12/02/2023 (Approximate), Expires: 03/02/2024Start: 12-02-2023 End: 03-92-6204VoT [Mass/volume] in Serum or PlasmaIMMUNOGLOBULIN M Lab Routine Megaloblastic anemia due to vitamin B12 deficiency High total serum IgM Expected: 12/02/2023 (Approximate), Expires: 03/02/2024[facility] Work Phone: Comment on above:Expected: 12/02/2023 (Approximate), Expires: 03/02/2024Start: 12-02-2023 End: 97-20-3957Afvm and Iron binding capacity panel - Serum or PlasmaIRON AND TIBC Lab Routine Megaloblastic anemia due to vitamin B12 deficiency High total serum IgM Expected: 12/02/2023 (Approximate), Expires: 09/08/2024[facility] Work Phone: Comment on above:Expected: 12/02/2023 (Approximate), Expires: 09/08/2024Start: 11-29-2023 End: 75-30-1280Cowhafd evaluation of patient and ysdpok8111/29/2023 2:15 PM EDT Nurse Visit Hematology/Oncology [address] [place] [address] Joanna Nd Nurse Sawyer [address] [place] [address] k59Vcqsgslcyp/OncologyComment on above:h62Ymzgq: 11-15-2023 End: 92-28-1384Ozzpdkhmz Tumphbjl56/24/2024 10:00 AM EDT Specialty Pharmacy [facility] [address] [place] [address] Drive [id number] [address] Pharmacist, [facility]ty[facility] [address] [place] [address] [place] [address] refill - benlysta- NCA 09/2024-- pa exp: 02/04/24-[facility] Specialty PharmacyComment on above:refill - benlysta- NCA 09/2024-Thursdays- pa exp: 02/04/24-Start: 10-29-2023 End: 96-32-3537Sbkzycx evaluation of patient and jfyjgl9610/29/2023 11:00 AM EDT Nurse Visit Hematology/Oncology [address] [place] [address] Hoda Marshall Nurse Sawyer [address] [place] [address] s06Itarduityg/OncologyComment on above:e04Ggodc: 10-15-2023 End: 91-68-0213Iybobcvjn Qnqnsfom25/24/2024 10:00 AM EDT Specialty Pharmacy [facility] [address] [place] [address] Pharmacist, Specialtygroup [address] [place] [address] [place] [phone] 22 refill - benlysta-Thursdays- pa exp: 02/04/24-l/m 10/11CC Specialty PharmacyComment on above:refill - benlysta-Thursdays- pa exp: 02/04/24-l/m art: 10-12-2023 End: 98-99-8249Abvcskesm Dvwwfjmp56/21/2024 10:00 AM EDT Specialty Pharmacy [facility] [address] [place] [address] Pharmacist, Specialtygroup [address] [place] [address] [address] [place] [phone] 22 refill - benlysta-Thursdays- pa exp: 02/04/24-[facility] Specialty PharmacyComment on above:refill - benlysta-Thursdays- pa exp: 02/04/24-Start: 10-05-2023 End: 61-18-9460Urjkton encounter iwkwkhyxz46/14/2024 8:00 AM EDT [facility] Rheumatology [address] [place] [address] Lynne Ni [place] [address] [facility] [address] 6 mo f/u for LupusRheumatologyComment on above:6 mo f/u for LupusStart: 10-01-2023 End: 49-10-1246Idlbhch evaluation of patient and kaihkv5310/01/2023 11:00 AM EDT Nurse Visit Hematology/Oncology [address] [place] [address] [phone] Hoda Marshall Nurse Sawyer [address] [facility] [place] [address] l68Zhsgtpkuhe/OncologyComment on above:s96Guxhn: 09-16-2023 End: 23-93-2124Pggozudrv Ppftlznh52/25/2024 10:00 AM EDT Specialty Pharmacy [facility] [address] [place] [address] Pharmacist, Specialtygroup [address] [place] [address] refill - benlysta-Thursdays- pa exp: 02/04/24-[facility] Specialty PharmacyComment on above:refill - benlysta-Thursdays- pa exp: 02/04/24-lvmStart: 09-13-2023 End: 17-17-9249Kgebnzw encounter ezpcebjyr48/22/2024 9:00 AM EDT Office Visit [facility] [address] [place] [address] Kade Early MD [address] [facility] [address] [id number] [facility] NEURStart: 07-19-2023 End: 61-31-7290Arinafl encounter procedureThedaCare Medical Center - [facility] Inctart: 07-15-2023 End: 16-50-0546Mjybjhj encounter hkcosofal16/22/2024 10:50 AM EST Office Visit [facility] [address] [place] [address] Bernabe English MD [address] [place] [address] [facility] S[facility] DERMStart: 07-06-2023 End: 80-22-6903Vchhsoz encounter upawekdhq04/13/2024 2:30 PM EST Office Visit [facility] [address] [place] [id number] Kade Early MD [address] [facility] [address] [place] [address] [facility] 210Start: 07-06-2023 End: [id number] electrophoresis, serumProtein electrophoresis, serum Lab Routine Autoimmune disease (CMS/HCC) Autonomic dysfunction Expected: 07/06/2023 (Approximate), Expires: 07/06/2024[facility] Work Phone: Comment on above:Expected: 07/06/2023 (Approximate), Expires: 07/06/2024Start: 07-06-2023 End: 12-29-4941Vvwfzzc electrophoresis, urineProtein electrophoresis, urine Lab Routine Autoimmune disease (CMS/HCC) Autonomic dysfunction Expected: 07/06/2023 (Approximate), Expires: 07/06/2024[facility] HealthcareComment on above:Expected: 07/06/2023 (Approximate), Expires: 07/06/2024Start: 06-09-2023 End: 68-40-0696Fvpozk 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 Routine Irregular heart rate Expected: 06/09/2023 (Approximate), Ex[facility]: [facility]2024[facility]: Comment on above:Expected: 06/09/2023 (Approximate), Expires: 06/09/2024Start: 06-09-2023 End: 28-42-0689Fedko 1996 panel - Serum or PlasmaLipid Panel Lab Routine Primary hypertension Expected: 06/09/2023 (Approximate), Expires: 06/09/2024[facility]: Comment on above:Expected: 06/09/2023 (Approximate), Expires: 06/09/2024Start: 06-09-2023 End: 36-25-1880Zcfvifinidw [Units/volume] in Serum or PlasmaThyroid Stimulating Hormone Lab Routine Irregular heart rate Expected: 06/09/2023 (Approximate), Exp ires: 06/09/2024[facility] Work Phone: Comment on above:Expected: 06/09/2023 (Approximate), Expires: 06/09/2024Start: 06-09-2023 End: 69-15-7977Njxasrpee (T4) free [Mass/volume] in Serum or PlasmaThyroxine, Free Lab Routine Irregular heart rate Expected: 06/09/2023 (Approximate), Expires: 06/09/2024[facility] Work Phone: Comment on above:Expected: 06/09/2023 (Approximate), Expires: 06/09/2024Start: 06-09-2023 End: 66-34-4229HL Heart TransthoracicTransthoracic Echo (TTE) Complete Echocardiography Routine Irregular heart rate Obstructive sleep apnea syndrome Expected: 06/09/2023 (Approximate), Expires: 06/09/2025[facility] Work Phone: Comment on above:Expected: 06/09/2023 (Approximate), Expires: 06/09/2025Start: 04-25-2023 End: 489166-sgbndzunmhnmkm D3 [Mass/volume] in Serum or PlasmaVITAMIN D 25 HYDROXY Lab Routine Vitamin D deficiency Expected: 04/25/2023 (Approximate), Expires: 01/25/2024[facility] Work Phone: Comment on above:Expected: 04/25/2023 (Approximate), Expires: 01/25/2024Start: 04-25-2023 End: 01-25-2024 reactive protein [Mass/volume] in Serum or PlasmaC-REACTIVE PROTEIN (CRP) Lab Routine Elevated sed rate Elevated C-reactive protein (CRP) Expected: 04/25/2023 (Approximate), Expires: 01/25/2024[facility] Work Phone: Comment on above:Expected: 04/25/2023 (Approximate), Expires: 01/25/2024Start: 04-25-2023 End: 64-67-2285VGL panel - Blood by Automated countCBC Lab Routine Anemia of chronic disease Expected: 04/25/2023 (Approximate), Expires: 01/25/2024[facility] Work Phone: Comment on above:Expected: 04/25/2023 (Approximate), Expires: 01/25/2024Start: 04-25-2023 End: 67-67-9380Gmdsctfmmzcob metabolic 2000 panel - Serum or PlasmaCOMP METABOLIC PANEL Lab Routine Elevated LFTs Expected: 04/25/2023 (Approximate), Expires: 01/25/2024[facility] Work Phone: Comment on above:Expected: 04/25/2023 (Approximate), Expires: 01/25/2024Start: 04-25-2023 End: 31-81-2978Dyydcalelav sedimentation rateSED RATE WESTERGREN Lab Routine Elevated sed rate Elevated C-reactive protein (CRP) Expected: 04/25/2023 (Approximate), Expires: 01/25/2024[facility] Work Phone: Comment on above:Expected: 04/25/2023 (Approximate), Expires: 01/25/2024Start: 46-33-3097CIHJY-19 Vaccine (4 - Pfizer risk series) COVID-19 Vaccine (4 - Pfizer risk series)[facility] 17-21-2224Yegfz-19 Vaccine ()Covid-19 Vaccine ()[facility] 69-06-9379Hxitf-19 Vaccine () Covid-19 Vaccine ()[facility] 04-16-2023 End: 51-92-7401UXC W Auto Differential panel - BloodCBC + DIFF Lab Routine Megaloblastic anemia due to vitamin B12 deficiency Elevated sed rate Chronic fatigue and malaise High total serum IgM JOSE RAFAEL (obstructive sleep apnea) Expected: 04/16/2023 (Approximate), Expires: 02/20/2024[facility] Work Phone: Comment on above:Expected: 04/16/2023 (Approximate), Expires: 02/20/2024Start: 04-16-2023 End: 91-29-1943Oxwktwkps (Vitamin B12) [Mass/volume] in Serum or PlasmaVITAMIN B12 BLOOD Lab Routine Megaloblastic anemia due to vitamin B12 deficiency Elevated sed rate Chronic fatigue and malaise High total serum IgM JOSE RAFAEL (obstructive sleep apnea) Expected: 04/16/2023 (Approximate), Expires: 02/20/2024[facility] Work Phone: Comment on above:Expected: 04/16/2023 (Approximate), Expires: 02/20/2024Start: 04-16-2023 End: 97-84-6842Cyeqvmcbcgtze metabolic 2000 panel - Serum or PlasmaCOMP METABOLIC PANEL Lab Routine Megaloblastic anemia due to vitamin B12 deficiency Elevated sed rate Chronic fatigue and malaise High total serum IgM JOSE RAFAEL (obstructive sleep apnea) Expected: 04/16/2023 (Approximate), Expires: 02/20/2024[facility] Work Phone: Comment on above:Expected: 04/16/2023 (Approximate), Expires: 02/20/2024Start: 04-16-2023 End: 46-75-7214Gkeafzmc [Mass/volume] in Serum or PlasmaFERRITIN BLD Lab Routine Megaloblastic anemia due to vitamin B12 deficiency Elevated sed rate Chronic fatigue and malaise High total serum IgM JOSE RAFAEL (obstructive sleep apnea) Expected: 04/16/2023 (Approximate), Expires: 02/20/2024[facility] Work Phone: Comment on above:Expected: 04/16/2023 (Approximate), Expires: 02/20/2024Start: 04-16-2023 End: 36-72-1958Jhexit [Mass/volume] in Serum or PlasmaFOLATE SERUM Lab Routine Megaloblastic anemia due to vitamin B12 deficiency Elevated sed rate Chronic fatigue and malaise High total serum IgM JOSE RAFAEL (obstructive sleep apnea) Expected: 04/16/2023 (Approximate), Expires: 02/20/2024[facility] Work Phone: Comment on above:Expected: 04/16/2023 (Approximate), Expires: 02/20/2024Start: 04-16-2023 End: 38-65-4519Snvd and Iron binding capacity panel - Serum or PlasmaIRON + TIBC Lab Routine Megaloblastic anemia due to vitamin B12 deficiency Elevated sed rate Chronic fatigue and malaise High total serum IgM JOSE RAFAEL (obstructive sleep apnea) Expected: 04/16/2023 (Approximate), Expires: 02/20/2024[facility] Work Phone: Comment on above:Expected: 04/16/2023 (Approximate), Expires: 02/20/2024Start: 02-83-8234UQXAF-19 Vaccine (3 - Pfizer risk series) COVID-19 Vaccine (3 - Pfizer risk series)[facility]: 40-99-7818Yaobjbwx mellitus screeningDiabetes ScreeningOhio State University [facility]: 03-10-2023 End: 05-47-2176Ehgsynx [Units/volume] in Serum or PlasmaINSULIN ASSAY BLOOD Lab Routine Insulin resistance, unspecified Expected: 03/10/2023, Expires: 06/09[facility] Work Phone: comment on above:Expected: 03/10/2023, Expires: 06/09/2023Start: 03-10-2023 End: 42-09-4551MHVDHPM ANTIBODY BLDINSULIN ANTIBODY BLD Lab Routine Insulin resistance, unspecified Expected: 03/10/2023, Expires: 06/09/2023[facility] Work Phone: comment on above:Expected: 03/10/2023, Expires: 06/09/2023Start: 02-11-2023 End: 80-69-9040Qwzn-2-Microglobulin [Mass/volume] in Serum or PlasmaB2 MICROGLOBULIN B Lab Routine Megaloblastic anemia due to vitamin B12 deficiency High total serum IgM Elevated sed rate Expected: 02/11/2023 (Approximate), Expires: 02/08/2024[facility] Work Phone: Comment on above:Expected: 02/11/2023 (Approximate), Expires: 02/08/2024Start: 02-11-2023 End: 88-29-9321Sxoxijv.ionized [Moles/volume] in BloodCALCIUM IONIZED BLOOD Lab Routine Megaloblastic anemia due to vitamin B12 deficiency High total serum IgM Elevated sed rate Expected: 02/11/2023 (Approximate), Expires: 02/08/2024 [facility] Work Phone: Comment on above:Expected: 02/11/2023 (Approximate), Expires: 02/08/2024Start: 02-11-2023 End: 66-91-6173FGE W Auto Differential panel - BloodCBC + DIFF Lab Routine Megaloblastic anemia due to vitamin B12 deficiency High total serum IgM Elevated sed rate Expected: 02/11/2023 (Approximate), Expires: 02/08/2024[facility] Work Phone: Comment on above:Expected: 02/11/2023 (Approximate), Expires: 02/08/2024Start: 02-11-2023 End: 46-27-3910Yfmumfzql (Vitamin B12) [Mass/volume] in Serum or PlasmaVITAMIN B12 BLOOD Lab Routine Megaloblastic anemia due to vitamin B12 deficiency High total serum IgM Elevated sed rate Expected: 02/11/2023 (Approximate), Expires: 02/08/2024[facility] Work Phone: Comment on above:Expected: 02/11/2023 (Approximate), Expires: 02/08/2024Start: 02-11-2023 End: 32-46-0309Rjvolwrrfhnpo metabolic 2000 panel - Serum or PlasmaCOMP METABOLIC PANEL Lab Routine Megaloblastic anemia due to vitamin B12 deficiency High total serum IgM Elevated sed rate Expected: 02/11/2023 (Approximate), Expires: 02/08/2024[facility] Work Phone: Comment on above:Expected: 02/11/2023 (Approximate), Expires: 02/08/2024Start: 02-11-2023 End: 22-33-4215Srtpqnno [Mass/volume] in Serum or PlasmaFERRITIN BLD Lab Routine Megaloblastic anemia due to vitamin B12 deficiency High total serum IgM Nicole vated sed rate Expected: 02/11/2023 (Approximate), Expires: 02/08/2024[facility] Work Phone: Comment on above:Expected: 02/11/2023 (Approximate), Expires: 02/08/2024Start: 02-11-2023 End: 81-89-6096Tlbxqi [Mass/volume] in Serum or PlasmaFOLATE SERUM Lab Routine Megaloblastic anemia due to vitamin B12 deficiency High total serum IgM Elevated sed rate Expected: 02/11/2023 (Approximate), Expires: 02/08/2024[facility] Work Phone: Comment on above:Expected: 02/11/2023 (Approximate), Expires: 02/08/2024Start: 02-11-2023 End: 49-78-4018Hbgm and Iron binding capacity panel - Serum or PlasmaIRON + TIBC Lab Routine Megaloblastic anemia due to vitamin B12 deficiency High total serum IgM Elevated sed rate Expected: 02/11/2023 (Approximate), Expires: 02/08/2024 [facility] Work Phone: Comment on above:Expected: 02/11/2023 (Approximate), Expires: 02/08/2024Start: 02-11-2023 End: 46-26-6166UBXMZ/FARMER,FREE,SERKAPPA/FARMER,FREE,SER Lab Routine Megaloblastic anemia due to vitamin B12 deficiency High total serumIgM Elevated sed rate Expected: 02/11/2023 (Approximate), Expires: 04/13/2023[facility] Work Phone: Comment on above:Expected: 02/11/2023 (Approximate), Expires: 04/13/2023Start: 02-11-2023 End: 70-34-2915Kjvlauv dehydrogenase [Enzymatic activity/volume] in Serum or PlasmaLD LACTATE DEHYDRO Lab Routine Megaloblastic anemia due to vitamin B12 deficiency High total serum IgM Elevated sed rate Expected: 02/11/2023 (Approximate), Expires: 02/08/2024[facility] Work Phone: Comment on above:Expected: 02/11/2023 (Approximate), Expires: 02/08/2024Start: 02-11-2023 End: 33-24-7781JRVBXPLYVH PROTEIN, SERUM (BLOOD)MONOCLONAL PROTEIN, SERUM (BLOOD) Lab Routine Megaloblastic anemia due to vitamin B12 deficiency High total serum IgM Elevated sed rate Expected: 02/11/2023 (Approximate), Expires: 02/08/2024[facility] Work Phone: Comment on above:Expected: 02/11/2023 (Approximate), Expires: 02/08/2024Start: 02-11-2023 End: 58-91-1174Paaofwlfs [Mass/volume] in Serum or PlasmaPHOSPHORUS INORGANIC Lab Routine Megaloblastic anemia due to vitamin B12 deficiency High total serum IgM Elevated sed rate Expected: 02/11/2023 (Approximate), Expires: 02/08/2024 [facility] Work Phone: Comment on above:Expected: 02/11/2023 (Approximate), Expires: 02/08/2024Start: 02-11-2023 End: 99-81-8741MBUCEGY ELECTROPHORESIS SERUM W/INTERPPROTEIN ELECTROPHORESIS SERUM W/INTERP Lab Routine Megaloblastic anemia due to vitamin B12 deficiency High total serum IgM Elevated sed rate Expected: 02/11/2023 (Approximate), Expires: 02/08/2024[facility] Work Phone: Comment on above:Expected: 02/11/2023 (Approximate), Expires: 02/08/2024Start: 02-11-2023 End: 54-45-5793Ljpaw [Mass/volume] in Serum or PlasmaURIC ACID BLOOD Lab Routine Megaloblastic anemia due to vitamin B12 deficiency High total serum IgMElevated sed rate Expected: 02/11/2023 (Approximate), Expires: 02/08/2024[facility] Work Phone: Comment on above:Expected: 02/11/2023 (Approximate), Expires: 02/08/2024Start: 18-29-2469Ejadkqsgx vaccinationDay[facility]opathic Hospitaltart: 12-17-2022 End: 41-04-0264ZXG W Auto Differential panel - BloodCBC + DIFF Lab Routine Megaloblastic anemia due to vitamin B12 deficiency Expected: 12/17/2022 (Appr oximate), Expires: 10/23/2023[facility] Work Phone: Comment on above:Expected: 12/17/2022 (Approximate), Expires: 10/23/2023Start: 12-17-2022 End: 55-74-1553Kiaqlkrfa (Vitamin B12) [Mass/volume] in Serum or PlasmaVITAMIN B12 BLOOD Lab Routine Megaloblastic anemia due to vitamin B12 deficiency Expected: 12/17/2022 (Approximate), Expires: 10/23/2023[facility] Work Phone: Comment on above:Expected: 12/17/2022 (Approximate), Expires: 10/23/2023Start: 12-17-2022 End: 16-01-8444Ibfilkjoavyfe metabolic 2000 panel - Serum or PlasmaCOMP METABOLIC PANEL Lab Routine Megaloblastic anemia due to vitamin B12 deficiency Expected: 12/17/2022 (Approximate), Expires: 10/23/2023[facility] Work Phone: Comment on above:Expected: 12/17/2022 (Approximate), Expires: 10/23/2023Start: 12-17-2022 End: 18-55-2244Srtyppdv [Mass/volume] in Serum or PlasmaFERRITIN BLD Lab Routine Megaloblastic anemia due to vitamin B12 deficiency Expected: 12/17/2022 (Ap proximate), Expires: 10/23/2023[facility] Work Phone: Comment on above:Expected: 12/17/2022 (Approximate), Expires: 10/23/2023Start: 12-17-2022 End: 69-78-8826Tdjsvj [Mass/volume] in Serum or PlasmaFOLATE SERUM Lab Routine Megaloblastic anemia due to vitamin B12 deficiency Expected: 12/17/2022 (Ap proximate), Expires: 10/23/2023[facility] Work Phone: Comment on above:Expected: 12/17/2022 (Approximate), Expires: 10/23/2023Start: 12-17-2022 End: 91-59-6574Hnmc and Iron binding capacity panel - Serum or PlasmaIRON + TIBC Lab Routine Megaloblastic anemia due to vitamin B12 deficiency Expected: 12/17/2022 (Approximate), Expires: 10/23/2023[facility] Work Phone: Comment on above:Expected: 12/17/2022 (Approximate), Expires: 10/23/2023Start: 10-23-2022 End: 92-35-214553351535-nycmncviytlnqr D3 [Mass/volume] in Serum or PlasmaVITAMIN D 25 HYDROXY Lab Routine Megaloblastic anemia due to vitamin B12 deficiency Elevated sed rate High total serum IgM Chronic fatigue and malaise JOSE RAFAEL (obstructive sleep apnea) Expected: 10/23/2022, Expires: 12/23/2022[facility] Work Phone: Comment on above:Expected: 10/23/2022, Expires: 12/23/2022Start: 10-23-2022 End: 12-23-2022 reactive protein [Mass/volume] in Serum or PlasmaC-REACTIVE PROTEIN (CRP) Lab Routine Megaloblastic anemia due to vitamin B12 deficiency Elevated sed rate High total serum IgM Chronic fatigue and malaise JOSE RAFAEL (obstructive sleep apnea) Expected: 10/23/2022, Expires: 12/23/2022[facility] Work Phone: Comment on above:Expected: 10/23/2022, Expires: 12/23/2022Start: 10-23-2022 End: 04-87-7737AGP W Auto Differential panel - BloodCBC + DIFF Lab Routine Megaloblastic anemia due to vitamin B12 deficiency Elevated sed rate High total serum IgM Chronic fatigue and malaise JOSE RAFAEL (obstructive sleep apnea) Expected: 10/23/2022, Expires: 12/23/2022[facility] Work Phone: Comment on above:Expected: 10/23/2022, Expires: 12/23/2022Start: 10-23-2022 End: 03-24-1245Cwsmomqbd (Vitamin B12) [Mass/volume] in Serum or PlasmaVITAMIN B12 BLOOD Lab Routine Megaloblastic anemia due to vitamin B12 deficiency Elevated sed rate High total serum IgM Chronic fatigue and malaise JOSE RAFAEL (obstructive sleep apnea) Expected: 10/23/2022,Expires: 12/23/2022[facility] Work Phone: Comment on above:Expected: 10/23/2022, Expires: 12/23/2022Start: 10-23-2022 End: 72-06-8578Ukbjvexnllpgc metabolic 2000 panel - Serum or PlasmaCOMP METABOLIC PANEL Lab Routine Megaloblastic anemia due to vitamin B12 deficiency Elevated sed rate High total serum IgM Chronic fatigue and malaise JOSE RAFAEL (obstructive sleep apnea) Expected: 10/23/2022, Expires: 12/23/2022[facility] Work Phone: Comment on above:Expected: 10/23/2022, Expires: 12/23/2022Start: 10-23-2022 End: 17-55-2134Qdwrvcxlktx sedimentation rateSED RATE WESTERGREN Lab Routine Megaloblastic anemia due to vitamin B12 deficiency Elevated sed rate High total serum IgM Chronic fatigue and malaise JOSE RAFAEL (obstructive sleep apnea) Expected: 10/23/2022, Expires: 12/23/2022[facility] Work Phone: Comment on above:Expected: 10/23/2022, Expires: 12/23/2022Start: 10-23-2022 End: 55-34-4667Noiffsb dehydrogenase [Enzymatic activity/volume] in Serum or PlasmaLD LACTATE DEHYDRO Lab Routine Megaloblastic anemia due to vitamin B12 deficiency Elevated sed rateHigh total serum IgM Chronic fatigue and malaise JOSE RAFAEL (obstructive sleep apnea) Expected: 10/23/2022, Expires: 12/23/2022[facility] Work Phone: Comment on above:Expected: 10/23/2022, Expires: 12/23/2022Start: 10-23-2022 End: 88-57-4625ZNTHGBDVGX PROTEIN, SERUM (BLOOD)MONOCLONAL PROTEIN, SERUM (BLOOD) Lab Routine Megaloblastic anemia due to vitamin B12 deficiency Elevated sed rate High total serum IgM Chronic fatigue and malaise JOSE RAFAEL (obstructive sleep apnea) Expected: 10/23/2022, Expires: 12/23/2022[facility] Work Phone: Comment on above:Expected: 10/23/2022, Expires: 12/23/2022Start: 10-23-2022 End: 75-20-1970XLVZ ELECT SERUM WITH DANA AND INTERPPROT ELECT SERUM WITH DANA AND INTERP Lab Routine Megaloblastic anemia due to vitamin B12 deficiencyElevated sed rate High total serum IgM Chronic fatigue and malaise JOSE RAFAEL (obstructive sleep apnea) Expected: 10/23/2022, Expires: 12/23/2022[facility] Work Phone: Comment on above:Expected: 10/23/2022, Expires: 12/23/2022Start: 09-19-2022 End: 89-80-7914CWG panel - Blood by Automated countCBC Lab Routine Anemia of chronic disease Expected: 09/19/2022 (Approximate), Expires: 08/20/2023[facility] Work Phone: Comment on above:Expected: 09/19/2022 (Approximate), Expires: 08/20/2023Start: 09-19-2022 End: 70-37-4963Ycxozdaqhkszk metabolic 2000 panel - Serum or PlasmaCOMP METABOLIC PANEL Lab Routine Elevated LFTs Expected: 09/19/2022 (Approximate), Expires: 08/20/2023[facility] Work Phone: Comment on above:Expected: 09/19/2022 (Approximate), Expires: 08/20/2023Start: 09-19-2022 End: 99-98-9524JRMZ PHENOTYPE/ENZYME ACTIVITYTPMT PHENOTYPE/ENZYME ACTIVITY Lab Routine Encounter for longterm current use of azathioprine Expected: 09/19/2022 (Approximate), Expires: 11/19/2022[facility] Work Phone: Comment on above:Expected: 09/19/2022 (Approximate), Expires: 11/19/2022Start: 08-28-2022 End: 93-54-697701376698-kbawdkisqcsxbv D3 [Mass/volume] in Serum or PlasmaVITAMIN D 25 HYDROXY Lab Routine Megaloblastic anemia due to vitamin B12 deficiency Elevated sed rate High total serum IgM Chronic fatigue and malaise Expected: 08/28/2022 (Approximate), Expires: 10/28/2022[facility] Work Phone: Comment on above:Expected: 08/28/2022 (Approximate), Expires: 10/28/2022Start: 08-28-2022 End: 81-43-9584Brvh-2-Microglobulin [Mass/volume] in Serum or PlasmaB2 MICROGLOBULIN B Lab Routine Megaloblastic anemia due to vitamin B12 deficiency Elevated sed rateHigh total serum IgM Chronic fatigue and malaise Expected: 08/28/2022 (Approximate), Expires: 07/26/2023[facility] Work Phone: Comment on above:Expected: 08/28/2022 (Approximate), Expires: 07/26/2023Start: 08-28-2022 End: 10-28-2022 reactive protein [Mass/volume] in Serum or PlasmaC-REACTIVE PROTEIN (CRP) Lab Routine Megaloblastic anemia due to vitamin B12 deficiency Elevated sed rate High total serum IgM Chronic fatigue and malaise Expected: 08/28/2022 (Approximate), Expires:10/28/2022[facility] Work Phone: Comment on above:Expected: 08/28/2022 (Approximate), Expires: 10/28/2022Start: 08-28-2022 End: 24-30-3192Libkaoa.ionized [Moles/volume] in BloodCALCIUM IONIZED BLOOD Lab Routine Megaloblastic anemia due to vitamin B12 deficiency Elevated sed rate High total serum IgM Chronic fatigue and malaise Expected: 08/28/2022 (Approximate), Expires: 07/26/2023[facility] Work Phone: Comment on above:Expected: 08/28/2022 (Approximate), Expires: 07/26/2023Start: 08-28-2022 End: 46-26-7939IAE W Auto Differential panel - BloodCBC + DIFF Lab Routine Megaloblastic anemia due to vitamin B12 deficiency Elevated sed rate High total serum IgM Chronic fatigue and malaise Expected: 08/28/2022 (Approximate), Expires: 07/26/2023[facility] Work Phone: Comment on above:Expected: 08/28/2022 (Approximate), Expires: 07/26/2023Start: 08-28-2022 End: 74-41-4727Qccecvojo (Vitamin B12) [Mass/volume] in Serum or PlasmaVITAMIN B12 BLOOD Lab Routine Megaloblastic anemia due to vitamin B12 deficiency Elevated sed rate High total serum IgM Chronic fatigue and malaise Expected: 08/28/2022 (Approximate), Expires: 10/28/2022[facility] Work Phone: Comment on above:Expected: 08/28/2022 (Approximate), Expires: 10/28/2022Start: 08-28-2022 End: 70-86-1845Omatsrcqyurtn metabolic 2000 panel - Serum or PlasmaCOMP METABOLIC PANEL Lab Routine Megaloblastic anemia due to vitamin B12 deficiency Elevated sed rate High total serum IgM Chronic fatigue and malaise Expected: 08/28/2022 (Approximate), Expires: 07/26/2023[facility] Work Phone: Comment on above:Expected: 08/28/2022 (Approximate), Expires: 07/26/2023Start: 08-28-2022 End: 39-05-5247Jqlvgtzjmbn sedimentation rateSED RATE WESTERGREN Lab Routine Megaloblastic anemia due to vitamin B12 deficiency Elevated sed rate High total serum IgM Chronic fatigue and malaise Expected: 08/28/2022 (Approximate), Expires: 10/28/2022[facility] Work Phone: Comment on above:Expected: 08/28/2022 (Approximate), Expires: 10/28/2022Start: 08-28-2022 End: 88-52-3345DPMNY/FARMER,FREE,SERKAPPA/FARMER,FREE,SER Lab Routine Megaloblastic anemia due to vitamin B12 deficiency Elevated sed rate High total serum IgM Chronic fatigue and malaise Expected: 08/28/2022 (Approximate), Expires: 10/28[facility] Work Phone: Comment on above:Expected: 08/28/2022 (Approximate), Expires: 10/28/2022Start: 08-28-2022 End: 99-37-3079Ktlzyxn dehydrogenase [Enzymatic activity/volume] in Serum or PlasmaLD LACTATE DEHYDRO Lab Routine Megaloblastic anemia due to vitamin B12 deficiency Elevated sed rateHigh total serum IgM Chronic fatigue and malaise Expected: 08/28/2022 (Approximate), Expires: 07/26/2023[facility] Work Phone: Comment on above:Expected: 08/28/2022 (Approximate), Expires: 07/26/2023Start: 08-28-2022 End: 77-84-9758JRVJNWZXNW PROTEIN, SERUM (BLOOD)MONOCLONAL PROTEIN, SERUM (BLOOD) Lab Routine Megaloblastic anemia due to vitamin B12 deficiency Elevated sed rate High total serum IgM Chronic fatigue and malaise Expected: 08/28/2022 (Approximate),Expires: 07/26/2023[facility] Work Phone: Comment on above:Expected: 08/28/2022 (Approximate), Expires: 07/26/2023Start: 08-28-2022 End: 10-02-5854Nhpwcvssk [Mass/volume] in Serum or PlasmaPHOSPHORUS INORGANIC Lab Routine Megaloblastic anemia due to vitamin B12 deficiency Elevated sed rate High total serum IgM Chronic fatigue and malaise Expected: 08/28/2022 (Approximate), Expires: 07/26/2023[facility] Work Phone: Comment on above:Expected: 08/28/2022 (Approximate), Expires: 07/26/2023Start: 08-28-2022 End: 51-78-6701WHUVXOX ELECTROPHORESIS SERUM W/INTERPPROTEIN ELECTROPHORESIS SERUM W/INTERP Lab Routine Megaloblastic anemia due to vitamin B12 deficiency Elevated sed rate High total serum IgM Chronic fatigue and malaise Expected: 08/28/2022 (Approximate), Expires: 07/26/2023[facility] Work Phone: Comment on above:Expected: 08/28/2022 (Approximate), Expires: 07/26/2023Start: 08-28-2022 End: 27-69-9447Oqoly [Mass/volume] in Serum or PlasmaURIC ACID BLOOD Lab Routine Megaloblastic anemia due to vitamin B12 deficiency Elevated sed rate High total serum IgM Chronic fatigue and malaise Expected: 08/28/2022 (Approximate), Expires: 07/26/2023[facility] Work Phone: Comment on above:Expected: 08/28/2022 (Approximate), Expires: 07/26/2023Start: 07-15-2022 End: 72-36-8516Dubg-2-Microglobulin [Mass/volume] in Serum or PlasmaB2 MICROGLOBULIN B Lab Routine High total serum IgM Expected: 07/15/2022 (Approximate), Expires: 05/20/2023[facility] Work Phone: Comment on above:Expected: 07/15/2022 (Approximate), Expires: 05/20/2023Start: 07-15-2022 End: 02-22-4589Axhorlx.ionized [Moles/volume] in BloodCALCIUM IONIZED BLOOD Lab Routine High total serum IgM Expected: 07/15/2022 (Approximate), Expires: 05/20/2023[facility] Work Phone: Comment on above:Expected: 07/15/2022 (Approximate), Expires: 05/20/2023Start: 07-15-2022 End: 47-22-6256IME W Auto Differential panel - BloodCBC + DIFF Lab Routine High total serum IgM Expected: 07/15/2022 (Approximate), Expires: 05/20/2023[facility] Work Phone: Comment on above:Expected: 07/15/2022 (Approximate), Expires: 05/20/2023Start: 07-15-2022 End: 83-81-3107Kictuzkxebxlp metabolic 2000 panel - Serum or PlasmaCOMP METABOLIC PANEL Lab Routine High total serum IgM Expected: 07/15/2022 (Approximate), Expires: 05/20/2023[facility] Work Phone: Comment on above:Expected: 07/15/2022 (Approximate), Expires: 05/20/2023Start: 07-15-2022 End: 37-17-8958MZXAD/FARMER,FREE,SERKAPPA/FARMER,FREE,SER Lab Routine High total serum IgM Expected: 07/15/2022 (Approximate), Expires: 09/14/2022[facility] Work Phone: Comment on above:Expected: 07/15/2022 (Approximate), Expires: 09/14/2022Start: 07-15-2022 End: 54-38-8473Sqlfiyk dehydrogenase [Enzymatic activity/volume] in Serum or PlasmaLD LACTATE DEHYDRO Lab Routine High total serum IgM Expected: 07/15/2022 (Approximate), Expires: 05/20/2023[facility] Work Phone: Comment on above:Expected: 07/15/2022 (Approximate), Expires: 05/20/2023Start: 07-15-2022 End: 76-18-1664OGDOEVRGWI PROTEIN, SERUM (BLOOD)MONOCLONAL PROTEIN, SERUM (BLOOD) Lab Routine High total serum IgM Expected: 07/15/2022 (Approximate), Expires: 05/20/2023[facility] Work Phone: Comment on above:Expected: 07/15/2022 (Approximate), Expires: 05/20/2023Start: 07-15-2022 End: 84-69-6723Wqastgjyo [Mass/volume] in Serum or PlasmaPHOSPHORUS INORGANIC Lab Routine High total serum IgM Expected: 07/15/2022 (Approximate), Expires: 1 07/21/2022[facility] Work Phone: Comment on above:Expected: 07/15/2022 (Approximate), Expires: 05/20/2023Start: 07-15-2022 End: 91-47-0643SGOONGN ELECTROPHORESIS SERUM W/INTERPPROTEIN ELECTROPHORESIS SERUM W/INTERP Lab Routine High total serum IgM Expected: 07/15/2022 (Approx imate), Expires: 05/20/2023[facility] Work Phone: Comment on above:Expected: 07/15/2022 (Approximate), Expires: 05/20/2023Start: 07-15-2022 End: 12-42-8760Gnmhj [Mass/volume] in Serum or PlasmaURIC ACID BLOOD Lab Routine High total serum IgM Expected: 07/15/2022 (Approximate), Expires: 05/20/2023 [facility] Work Phone: Comment on above:Expected: 07/15/2022 (Approximate), Expires: 05/20/2023Start: 06-05-2022 End: 302384-abaakeddfplcos D3 [Mass/volume] in Serum or PlasmaVITAMIN D 25 HYDROXY Lab Routine Vitamin D deficiency Expected: 06/05/2022 (Approximate), Expires: 03/05/2023[facility] Work Phone: Comment on above:Expected: 06/05/2022 (Approximate), Expires: 03/05/2023Start: 06-05-2022 End: 03-05-2023 reactive protein [Mass/volume] in Serum or PlasmaC-REACTIVE PROTEIN (CRP) Lab Routine Elevated sed rate Elevated C-reactive protein (CRP) Expected: 06/05/2022 (Approximate), Expires: 03/05/2023[facility] Work Phone: Comment on above:Expected: 06/05/2022 (Approximate), Expires: 03/05/2023Start: 06-05-2022 End: 35-38-1823Kxdaovfhb (Vitamin B12) [Mass/volume] in Serum or PlasmaVITAMIN B12 BLOOD Lab Routine Vitamin B12 deficiency Expected: 06/05/2022 (Approximate), Expires: 03/05/2023[facility] Work Phone: [phone] on above:Expected: 06/05/2022 (Approximate), Expires: 03/05/2023Start: 06-05-2022 End: 35-46-8828Olbhjrofzmj sedimentation rateSED RATE WESTERGREN Lab Routine Elevated sed rate Elevated C-reactive protein (CRP) Expected: 06/05/2022 (Approximate), Expires: 03/05/2023[facility] Work Phone: Comment on above:Expected: 06/05/2022 (Approximate), Expires: 03/05/2023Start: 05-06-2022 End: 80-41-5043Aqcz-2-Microglobulin [Mass/volume] in Serum or PlasmaB2 MICROGLOBULIN B Lab Routine Megaloblastic anemia due to vitamin B12 deficiency High total serum IgM Expected: 05/06/2022 (Approximate), Expires: 03/18/2023 [facility] Work Phone: Comment on above:Expected: 05/06/2022 (Approximate), Expires: 03/18/2023Start: 05-06-2022 End: 60-57-7056Ouqclbr.ionized [Moles/volume] in BloodCALCIUM IONIZED BLOOD Lab Routine Megaloblastic anemia due to vitamin B12 deficiency High total serum IgM Expected: 05/06/2022 (Approximate), Expires: 03/18/2023[facility] Work Phone: Comment on above:Expected: 05/06/2022 (Approximate), Expires: 03/18/2023Start: 05-06-2022 End: 99-12-6177MCN W Auto Differential panel - BloodCBC + DIFF Lab Routine Megaloblastic anemia due to vitamin B12 deficiency High total serum IgM Expec zabrina: 05/06/2022 (Approximate), Expires: 03/18/2023[facility] Work Phone: Comment on above:Expected: 05/06/2022 (Approximate), Expires: 03/18/2023Start: 05-06-2022 End: 09-93-2124Vdadrekkoudwv metabolic 2000 panel - Serum or PlasmaCOMP METABOLIC PANEL Lab Routine Megaloblastic anemia due to vitamin B12 deficiency High total serum IgM Expected: 05/06/2022 (Approximate), Expires: 03/18/2023 [facility] Work Phone: Comment on above:Expected: 05/06/2022 (Approximate), Expires: 03/18/2023Start: 05-06-2022 End: 68-40-8656Rqekepub [Mass/volume] in Serum or PlasmaFERRITIN BLD Lab Routine Megaloblastic anemia due to vitamin B12 deficiency High total serum IgM Exp ected: 05/06/2022 (Approximate), Expires: 03/18/2023[facility] Work Phone: Comment on above:Expected: 05/06/2022 (Approximate), Expires: 03/18/2023Start: 05-06-2022 End: 26-34-8525Kwcg and Iron binding capacity panel - Serum or PlasmaIRON + TIBC Lab Routine Megaloblastic anemia due to vitamin B12 deficiency High total serum IgM Expected: 05/06/2022 (Approximate), Expires: 03/18/2023[facility] Work Phone: Comment on above:Expected: 05/06/2022 (Approximate), Expires: 03/18/2023Start: 05-06-2022 End: 97-76-8140Rsndonr dehydrogenase [Enzymatic activity/volume] in Serum or PlasmaLD LACTATE DEHYDRO Lab Routine Megaloblastic anemia due to vitamin B12 deficiency High total serum IgM Expected: 05/06/2022 (Approximate), Expires: 03/18/2023[facility] Work Phone: Comment on above:Expected: 05/06/2022 (Approximate), Expires: 03/18/2023Start: 05-06-2022 End: 33-38-7601XSPEOQNGTJ PROTEIN, SERUM (BLOOD)MONOCLONAL PROTEIN, SERUM (BLOOD) Lab Routine Megaloblastic anemia due to vitamin B12 deficiency High total serum IgM Expected: 05/06/2022 (Approximate), Expires: 03/18/2023[facility] Work Phone: Comment on above:Expected: 05/06/2022 (Approximate), Expires: 03/18/2023Start: 05-06-2022 End: 57-33-3999Nwwojcbjq [Mass/volume] in Serum or PlasmaPHOSPHORUS INORGANIC Lab Routine Megaloblastic anemia due to vitamin B12 deficiency High total serum IgM Expected: 05/06/2022 (Approximate), Expires: 03/18/2023[facility] Work Phone: Comment on above:Expected: 05/06/2022 (Approximate), Expires: 03/18/2023Start: 05-06-2022 End: 36-16-3361XXJCLYM ELECTROPHORESIS SERUM W/INTERPPROTEIN ELECTROPHORESIS SERUM W/INTERP Lab Routine Megaloblastic anemia due to vitamin B12 deficiency High total serum IgM Expected: 05/06/2022 (Approximate), Expires: 03/18/2023 [facility] Work Phone: Comment on above:Expected: 05/06/2022 (Approximate), Expires: 03/18/2023Start: 05-06-2022 End: 69-44-3413Gdhwu [Mass/volume] in Serum or PlasmaURIC ACID BLOOD Lab Routine Megaloblastic anemia due to vitamin B12 deficiency High total serum IgM Expected: 05/06/2022 (Approximate), Expires: 03/18/2023[facility] Work Phone: Comment on above:Expected: 05/06/2022 (Approximate), Expires: 03/18/2023Start: 88-01-3985WFTUH-19 VACCINE (5 - Pfizer risk series) COVID-19 VACCINE (5 - Pfizer risk series)[facility] End: 46-03-0271Zodhzmyhjr A1c in BloodHGB A1C Lab Routine Elevated glucose Expected: 03/09/2022, Expires: 05/09/2022[facility] Work Phone: comenue on above:Expected: 03/09/2022, Expires: 05/09/2022tart: 02-24-2022 End: 87-03-3664ONBFZWELOU AB PANELBARTONELLA AB PANEL Lab Routine Swelling of lymph nodes Expected: 02/24/2022, Expires: 04/26/2022[facility] Work Phone: commpdl on above:Expected: 02/24/2022, Expires: 04/26/2022tart: 02-24-2022 End: 74-36-6860XYKVPNQV AB TOTALBRUCELLA AB TOTAL Lab Routine Swelling of lymph nodes Expected: 02/24/2022, Expires: 04/26/2022[facility] Work Phone: comuceh on above:Expected: 02/24/2022, Expires: 04/26/2022tart: 02-24-2022 End: 00-40-1427Xnukvpcxqptk sp Ag [Presence] in Unspecified specimen by Latex agglutinationCRYPTOCOCCUS AG DET Microbiology Routine Swelling of lymph nodes Expected: 02/24/2022, Expires: 04/26/2022[facility] Work Phone: comment on above:Expected: 02/24/2022, Expires: 04/26/2022tart: 02-24-2022 End: 63-22-6973LXOYBYFQQQY AG URINEHISTOPLASMA AG URINE Lab Routine Swelling of lymph nodes Expected: 02/24/2022, Expires: 04/26/2022[facility] Work Phone: comment on above:Expected: 02/24/2022, Expires: 04/26/2022tart: 02-24-2022 End: 26-74-9956DCD 1 RNA [#/volume] (viral load) in Serum or Plasma by YESSI with probe detectionHIV RNA VIRAL LOAD Lab Routine Swelling of lymph nodes Expected: 02/24/2022, Expires: 04/26/2022[facility] Work Phone: comwyfk on above:Expected: 02/24/2022, Expires: 04/26/2022tart: 02-24-2022 End: 74-25-7525FMQCIVDI TOTAL W/REFLEXSYPHILIS TOTAL W/REFLEX Lab Routine Swelling of lymph nodes Expected: 02/24/2022, Expires: 04/26/2022[facility] Work Phone: comment on above:Expected: 02/24/2022, Expires: 04/26/2022tart: 92-44-6217Tomlgsfeq vaccinationDayton Osteopathic Hospitaltart: 13-23-8564ASPQG-19 VACCINE (4 - Booster for Pfizer series)COVID-19 VACCINE (4 - Booster for Pfizer series)[facility]: 60-80-3648Qtqmptcgu vaccination Flu vaccine (Season Ended)[facility] Work Phone: start: 94-19-1270Vejqt panelPremier Health Miami Valley Hospital Northtart: 71-60-2987PklsakfycvwJhpxrciio ClinicStart: 06-79-7446Eunoijsmu for malignant neoplasm of breastDayton Osteopathic Hospitaltart: 83-46-5481FMJ TESTINGHPV TESTING [facility]: 91-99-8992Eckooymtw for malignant neoplasm of cervix [facility]: 10-59-0746IIO VACCINE (1 - 3-dose SCDM series)HPV VACCINE (1 - 3-dose SCDM series)[facility]: 93-38-3319RMK Vaccine (1 - Risk 3-dose SCDM series)HPV Vaccine (1 - Risk 3-dose SCDM series)[facility]: 38-52-3404AYzL/Tdap/Td Vaccines (1 - Tdap)DTaP/Tdap/Td Vaccines (1 - Tdap)[facility]Start: 66-00-2458GDV TESTINGPAP TESTING [facility]: 04-03-8722Fooabsvjb for malignant neoplasm of cervix [facility]: 99-71-6779WIoY,Tdap and Td Vaccines (1 - Tdap)DTaP,Tdap and Td Vaccines (1 - Tdap)ProMFry Eye Surgery Centertart: 66-82-8636OJzV/Tdap/Td vaccine (1 - Tdap)DTaP/Tdap/Td vaccine (1 - Tdap)[employer] Phone: start: 88-96-2490Bhppoezea B vaccinationHEP B VACCINE (1 of 3 - 19+ 3-dose series)[facility]: 80-96-6170Hfoneksmo B Vaccine (1 of 3 - 19+ 3-dose series)Hepatitis B Vaccine (1 of 3 - 19+ 3-dose series)[facility]: 58-23-0766Vuxmrcznt B Vaccines (1 of 3 - 19+ 3- dose series)Hepatitis B Vaccines (1 of 3 - 19+ 3-dose series)[facility] HospitalSt[facility]vel[facility]: 14-42-5327Ehrzajafvpms vaccinationPneumococcal Vaccine (1 of 2 - PCV)[facility]: 51-30-9271Nkbrxszlbawf Vaccine: Pediatrics and At-Risk Adult Patients (1 of 2 - PCV)Pneumococcal Vaccine: Pediatrics and At-Risk Adult Patients (1 of 2 - PCV)[facility] Hospital[facility]: 91-98-5598EDOVQNGC VACCINE (1 of 2)SHINGRIX VACCINE (1 of 2) [facility]: 27-04-4725Fcfyb diphtheria, tetanus and acellular pertussis (DTaP) vaccinationTDAP (ADULT)[facility]: 10-05-1999 Urine microalbumin profileDayton Osteopathic Hospitaltart: 92-94-7637Lbgnzn Vaccines (1 of 2)Zoster Vaccines (1 of 2)[facility] HospitalStcleveland: 1998 Adult BMI Follow Up PlanAdult BMI Follow Up PlanAtrium Healthtart: 73-15-2119Artgy BMI ScreeningAdult BMI ScreeningAtrium Healthtart: 78-93-3651Cpkboar ScreeningAnxiety ScreeningDayton Osteopathic Hospitaltart: 1998 Hepatitis C screeningHepatitis C ScreeningUnCoshocton Regional Medical Center Start: 83-23-7931HZM SCREENINGHIV SCREENINGDayton Osteopathic Hospitaltart: 08-27-7466WED screeningHIV ScreeningDayton Osteopathic Hospitaltart: 84-67-7044DIY screeningPremier Health Miami Valley Hospital Northtart: 56-66-6566Pkwiitxqu vaccinationVaricella Vaccines (1 of 2 - 13+ 2- dose series)[facility]: 74-08-7824YUUQU-19 Vaccine (1)COVID-19 Vaccine (1)[employer] Phone: start: 26-22-6408Kdyujimjxo ScreeningDepression ScreeningAtrium Healthtart: 93-76-6316Hyvpueh ScreeningTobacco ScreeningAtrium Healthtart: 97-72-0847Rfewrjxyf for malignant neoplasm of cervixCervical Cancer ScreeningDayton Osteopathic Hospitaltart: 1986 PNEUMOCOCCAL (1 - PCV)PNEUMOCOCCAL (1 - PCV)[facility]: 1986 Pneumococcal vaccinationDayton Osteopathic Hospitaltart: 74-70-1470Hrqznhivkpfw Vaccine: Pediatrics (0 to 5 Years) and At-Risk Patients (6 to 64 Years) (1 - PCV) Pneumococcal Vaccine: Pediatrics (0 to 5 Years) and At-Risk Patients (6 to 64 Years) (1 - PCV)[facility]: 90-04-8841NHG Vaccines (1 of 1 - Standard series)MMR Vaccines (1 of 1 - Standard series)[facility]: 85-52-0427Fdwouknqr vaccinationVaricella Vaccines (1 of 2 - 2-dose childhood series)[facility]: 32-04-1687Pyleufufd vaccine (1 of 2 - 2-dose childhood series)Varicella vaccine (1 of 2 - 2-dose childhood series)[employer] Phone: start: 93-72-5922FFDHNTWIN B (1 of 3 - 3-dose series) HEPATITIS B (1 of 3 - 3-dose series)[facility]: 85-69-5755Crtjjbopx B Vaccine (1 of 3 - 3-dose series)Hepatitis B Vaccine (1 of 3 - 3-dose series) [facility]: 45-17-3836Jsmlyzdfq B Vaccines (1 of 3 - 3-dose series) Hepatitis B Vaccines (1 of 3 - 3-dose series)[facility] Start: 93-29-7531Wsuvvhvii C screeningPremier Health Miami Valley Hospital Northtart: 40-96-9546JYY screeningHIV ScreeningGlenbeigh HospitalStart: 33-36-9744WHG Vaccine: Recommended Based On RiskHPV Vaccine: Recommended Based On Risk [facility]: 46-32-7631Yfhmx panelLipid PanelGlenbeigh HospitalStart: 34-15-3546Vrlytkqcj for osteoporosisBone Density ScanOhio State University [facility]: 14-78-9943Drvhhkc vaccinationTETANUSATriHealth SystemStart: 49-75-7291Eidwibn CounselingTobacco CounselingBlanchard Valley [facility] SystemStart: 69-02-1672Fkwmvu Adult PhysicalYearly Adult PhysicalGlenbeigh Hospital25-hydroxyvitamin D3 [Mass/volume] in Serum or Plasma VITAMIN D 25 HYDROXY Lab Routine Vitamin D deficiency 01/11/2025 1:48 PM EDT [facility]AEROBIC CULTUREAEROBIC CULTURE Lab Routine 03/02/[facility]25 5[facility]: ANAEROBIC CULTUREANAEROBIC CULTURE Lab Routine 03/02/2025 5:17 PM EDUnity Medical CenterBacteria identified in Unspecified specimen by Aerobe cultureCincinnati Children'S Hospital Medical CenterBacteria identified in Unspecified specimen by Anaerobe cultureCincinnati Children'S Hospital Medical CenterBLOOD TB SCREENBLOOD TB SCREEN Lab Routine Screening-pulmonary TB 01/11/2025 1:48 PM EDTCleveland ClinicC reactive protein [Mass/volume] in Serum or PlasmaC-REACTIVE PROTEIN Lab Routine Elevated sed rate Elevated C-reactive protein (CRP) 01/11/2025 1:48 PM EDTCleveland ClinicCardiovascular function eval w/tilt table w/mntrTILT TABLE EVALUATION Cardiology Routine POTS (postural orthostatic tachycardia syndrome) Ordered: 03/09/2022[facility] Work Phone: comment on above:Ordered: 03/09/2022BC W Auto Differential panel - BloodCBC and differential Lab Routine Menorrhagia with regular cycle Ordered: 03/23/2024[facility] [employer] Work Phone: comment on above:Ordered: 03/23/2024hronic hepatitis differentiation between hepatitis B and C virus panel - Serum or PlasmaHEP REMOTE PANEL BL Lab Routine Elevated LFTs 01/11/2025 1:48 PM EDTClevelfirsthealth [facility] Cobalamin (Vitamin B12) [Mass/volume] in Serum or PlasmaVITAMIN B12 Lab Routine Vitamin B12 deficiency 01/11/2025 1:48 PM EDTCleveland ClinicCT Abdomen W contrast [facility] End: 20-68-4059UUI-AXIAL SKELETONDXA-AXIAL SKELETON Radiology Routine Steroid- induced osteoporosis 1 Occurrences starting 02/04/2023until 03/05/2024[facility] Work Phone: Comment on above:1 Occurrences starting 02/04/2023 until 03/05/2024 End: 75-59-1881VXN-FOREARM SKELETONDXA-FOREARM SKELETON Radiology Routine Steroid-induced osteoporosis 1 Occurrences starting 02/04/2023 until 03/05/2024 [facility] Work Phone: Comment on above:1 Occurrences starting 02/04/2023 until 03/05/2024ECG 12 LeadECG 12 Lead ECG Routine Irregular heart rate 06/09/2023 8:[address] [facility] Work Phone: Erythrocyte sedimentation rateSEDIMENTATION RATE, WESTERGREN Lab Routine Elevated sed rate Elevated C-reactive protein (CRP) 01/11 1:48 PM [facility] Work Phone: hCG, quantitative, pregnancyhCG, quantitative, Lab Routine Menorrhagia with regular cycle Ordered: 03/23/2024NOCT HealthcareComment on above:Ordered: 03/23/2024Hemoglobin A1c/Hemoglobin.total in BloodHemoglobin A1c Lab Routine Menorrhagia with regular cycle Ordered: 03/23/2024[facility] HealthcareComment on above:Ordered: 03/23/2024Hepatitis B virus core Ab [Presence] in SerumHEPATITIS B CORE ANTIBODY TOTAL Lab Routine Elevated LFTs 01/11/2025 1:48 PM EDTCleveland ClinicHepatitis B virus surface Ab [Presence] in SerumHEPATITIS B SURFACE ANTIBODY Lab Routine Elevated LFTs 01/11/2025 1:48 PM EDTCleveland ClinicHepatitis B virus surface Ag [Presence] in SerumHEPATITIS B SURFACE ANTIGEN Lab Routine Elevated LFTs 01/11/2025 1:48 PM [facility]Mer[facility] Hospitalpatitis C virus Ab [Presence] in SerumHEPATITIS C ANTIBODY IA WITH CONFIRMATION Lab Routine Elevated LFTs 01/11/2025 1:48 PM [facility] End: 60-13-5524DJQX SLEEP APNEA TEST (HSAT)HOME SLEEP APNEA TEST (HSAT) Procedures Routine Somnolence, daytime Snoring 1 Occurrences starting 03/09/2022 until 3COhio[facility] Work Phone: comment on above:1 Occurrences starting 03/09/2022 until 03/09/2023HYDROGEN BREATH TEST B/OHYDROGEN BREATH TEST B/O Procedures Routine Diarrhea, unspecified type Abdominal pressure Ordered: 06/14/2024[facility] Work Phone: comment on above:Ordered: 06/14/2024Oxygen therapy [Minimum Data Set]Initiate Oxygen Therapy Protocol Respiratory Care Routine Daily until discontinued starting 10/07/2020[facility] Work Phone: comment on above:Daily until discontinued starting 10/07/2020atient EducationOhio State Health System Ctr Work Phone: Patient referralOhio State Health System Ctr Work Phone: End: 88-55-0291ZnwuhotsrpdhcVKWNAAXAWACVF (PSG) Procedures Routine Somnolence, daytime Snoring 1 Occurrences starting 03/04/2022 until 03/04/2023[facility] Work Phone: Comment on above:1 Occurrences starting 03/04/2022 until 03/04/2023rothrombin time (PT) in Blood by Coagulation assayProtime-INR Lab Routine Menorrhagia with regular cycle Ordered: 03/23/2024[facility] Comment on above:Ordered: 03/23/2024THIN PREP TIS PAP AND HR HPV DNATHIN PREP TIS PAP AND HR HPV DNA Pathology and Cytology Routine Well woman exam with routine gynecological exam Ordered: 06/06/2024[facility] HealthcareComment on above: Ordered: 06/06/2024Thyrotropin [Units/volume] in Serum or PlasmaTSH Lab Routine Menorrhagia with regular cycle Ordered: 03/23/2024NOCT HealthcareComment on above:Ordered: 03/23/2024Thyroxine (T4) free [Mass/volume] in Serum or PlasmaT4, free Lab Routine Menorrhagia with regular cycle Ordered: 03/23/2024NOCT HealthcareComment on above:Ordered: 03/23/2024XR Thoracic spine 3 [facility] Immunizations Immunization DateImmunizationNotesCare [id number]-49 vaccine, age 12+ yr, season (PFIZER-BIONTAmgen [employer] Experience)Lynne Ni MD Work Phone: [facility] CompanyOwkrnp84-80-8991GWSBP-55 mRNA Bivalent Booster (Pfizer)Gay De La Torre REAL ESTATE OPERATIONS MANAGER-C Work Phone: [facility]01-03-2022COVID-19 mRNA, Comirnaty (Pfizer)Gay De La Torre REAL ESTATE OPERATIONS MANAGER-C Work Phone: [facility]05-29-2021COVID-19 mRNA, Comirnaty (Pfizer)Gay De La Torre REAL ESTATE OPERATIONS MANAGER-C Work Phone: [facility]05-08-2021COVID-19 mRNA, Comirnaty (Pfizer)Gay De La Torre REAL ESTATE OPERATIONS MANAGER-C Work Phone: [facility] Payers DatePayer CategoryPayerPoly [id number] [facility] [id number] 2017Medicaid (Managed Care) [id number] Health [facility]BR[facility] Member Subscriber Plan / Payer (Effective 2017-Present) Name: Ariadna Haley Relation to Subscriber: Self Name: hugo Ariadna Torres Payer ID: Not on file Group ID: [id number] Type: Not on file Address: [address] [place] [id number] [facility] [id number] 2017-Present [address] [place] [id number] 2010MedicaidCARESOURCECARESOURCE MEDICAID CARESOURCE MEDICAID [id number] 2009-Present [phone] [address] [place] [address] [id number] 2010Medicaid [id number] 2.840.1.595725.3.57[id number] 2.840.1.397729.3.579.[id number] 2.840.1.250723.3.579.2.77339-60-6422Tztjfzy5054284 2.840.1.613707.3.579.2.19034-56-8682Jgldwvq0932903 2.840.1.667800.3.579.[id number] 2.840.1.512109.3.579.[id number] 2.840.1.429147.3.579.2.86508-97-7511Tgjadoa606971829 2.16840.1.251967.3.579.2.128692-49-6936Pdljjzy09918640 2.840.1.128344.3.579.2.538699-37-9856Bukhhcz82769673 2.0.1.607039.3.579.2.191840-18-4612Eappjvn85584743 2..1.334331.3.579.2.922120-33-1762Bsrwnra97533614 2.0.1.007940.3.579.2.761800-21-7230Wmkbzxp92261756 2..1.640016.3.579.2.521948-64-7864Jsibbfc1815356 2..1.926361.3.579.2.134470-44-0141Rkoxrss3845665 2..1.588944.3.579.2.577327-88-4344Hicwmuk3054615 2..1.180751.3.579.2.983358-50-8051Ucuylxq7195599 2..1.746382.3.579.2.822838-40-7974Edmjljx9791474 2..1.597933.3.579.2.648832-85-4377Lymshbf6716577 2..1.207388.3.579.2.888972-56-4281Uhhmcab3875630 2..1.511338.3.579.2.405818-94-0240Msgqtec74557314 2..1.788250.3.579.2.82108-22-5081Wnlsglh7904118587896-26-7468Sbjvpqd [id number] 2.0.1.823460.3.579.2.203Uwdgwyb97810945 2.0.1.444286.3.579.2.748Svrjdca10524094 2.16.840.1.423657.3.579.2.531 [id number] 2.16.840.1.751806.3.579.2.141Cxugrkh92134062 2.16.840.1.096998.3.579.2.094Woxcqlm24275998 2.16.840.1.417245.3.579.2.531 [id number] 2.16.840.1.235878.3.579.2.531 Social History DateTypeDetailFacilityStart: 10-07-2020 End: 95-58-4959Mdwkjqg smoking status NHISCurrent every day smokerDayton Osteopathic Hospitaltart: 10-07-2020 End: 01-63-7014Cenhssv use and exposureNever usedTrihealth Bethesda North HospitalStart: 10-07-2020 End: 54-92-0332Vlpzala intakeLifetime non-drinker (finding)[employer] Phone: start: 24-10-6410Jivbntk SDOH Alcohol Qncaeeohg4Rpcrn Health Work Phone: start: 17-62-3259Wjv Assigned At BirthNot on [facility] Phone: start: 02-22-2022 End: 10-44-2966Mbqbjbdv to SARS-CoV-2 (event)Not sureTrihealth Bethesda North HospitalStart: 82-21-5994Zqelthd of tobacco useCigarette SmokerDayton Osteopathic Hospitaltart: 05-31-2014 End: 60-25-2569Rpapyidrro smoked current (pack per day) - Jfbwmqwi2Gglcinwof ClinicStart: 10-24-2021 End: 56-99-4971Trexpry intakeCurrent non-drinker of alcohol (finding)[facility] Hospitaltart: 10-14-2021 End: 19-29-5923Pgzmfint to SARS-CoV-2 (event)Unable to assessRegency Hospital Company Start: 10-22-2022 End: 05-17-4978Sia Assigned At BirthDayton Osteopathic Hospitaltart: 40-76-8052Enzfg Depression Screening Chpdptyndp9Rqiehsjmh ClinicStart: 94-16-0279Qokqhnc Comment Current smoker, everyday, 11-20 cigarettes/dayNOCT HealthcareStart: 05-31-2023 Alcohol CommentCaffeine intake : > 4 cups per dayTHE [facility] HealthcareStart: 08-19-2016 End: 03-97-9889Oblemdt smoking status NHISSmoker (finding)[facility] Hospitaltart: 03-85-8942Yry Assigned At [facility] Systemtart: 07-02-2016 End: 10-90-3827KdjSgbxkz (finding)[facility]rium Healthtart: 90-05-8792Ylkhsr identityIdentifies as female gender (finding)[facility] Goals DatePatient GoalDesired Activity/State Functional Status KfbkIlsznczpgrXchscxJhlggsyq94-85-6050Mse you deaf, or do you have serious difficulty hearingNo 12/25/2014 11:14 AM Chichi Womack [facility] HospitalSiumzo73-55-7460Xeq you blind, or do you have serious difficulty seeing, even when wearing glassesNo 12/25/2014 11:14 AM [facility]ack [facility]08-04-2015Do you have serious difficulty walking or climbing stairsYes 12/25/2014 11:14 AM Chichi Womack [facility]08-04-2015Do you have difficulty dressing or bathingYes 12/25/2014 11:14 AM Chichi Womack [facility] HospitalCzhits24-95-2666Xaqdcuf of a physical, mental, or emotional condition, do you have difficulty doing errands alone such as visiting a physician's office or shoppingNo 12/25/2014 11:14 AM Chichi Womack Ma [facility] Mental Status LtkmNfcstbwnpjJjztfmDkhwvjdy51-79-2944Rsttxxp of a physical, mental, or emotional condition, do you have serious difficulty concentrating, remembering, or making decisionsNo 12/25/2014 11:14 AM Chichi Womack [facility] Clinical Notes 05-31-2014 to 03-14-2025 Note Date & RfyjCqywTeuurysr78-82-1110 History of Present illness Narrative* Stacy Madrid 03/14/2025 12:00 PM EDT Review of Systems [...] muscular pain Recent travel history? No * Tab May MD - 03/14/2025 12:00 PM EDT HPI Ariadna Haley 44 y.o. female presents today for New Patient (Pilonidal cyst with abscess/Referralfrom Dr. [facility] La [facility]. 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 Ongoing [...] hydroxychloroquine, steroids pred 10 mg po daily ([facility]) Hx of 12/2024: Tb and HBV and [...] culture data on her cell phone to me. We have requested outside medical records including from [...] Insecurity: No Food Insecurity (04/06/2024) Received from [facility] Hunger Screening Within the past 12 months [...] Personal Safety: Unknown (07/15/2023) Received from [facility] Safety & Environment Fear of Current or Ex-Partner: Not on file Emotionally Abused: Not on file Physically Abused: Not on file Sexually Abused: Not on file Physically or Sexually Abused: Not on file Housing Stability: Not on file No family history on file. Current Medications[4] EXAM BP 138/82 (BP Location: Right arm, BP Position: Sitting) Pulse 95 Temp 98.6 F (37 C) (Temporal) Resp 18 Wt 131.8 kg (290 [...] - Patient has follow up by Rheumatology [facility] in his on prednisone, hydroxychloroquine and Benlysta Opportunistic infection screening - Patient did have hepatitis-C, hepatitis-B and TB testing. Would recommend routine checking through her ware tester History of low IVIG - Follow up [...] required an extensive review of her history gots-wh-powb aswell as through available records although further records are needed. Thank you for this consultation. Please note Portions of this note utilized [employer] dictation software, please excuse any typographical or [...] daily., Disp: , Rfl: Ergocalciferol 1.25 MG (58162 UT) capsule, Take 1 capsule by mouth [...] 2 times daily., Disp: , Rfl: Nystatin 614039 UNIT/ML oral suspension, Swish and spit 4 [...] Other., Disp: , Rfl: documented in this [facility]10-08-2025 History of Present illness Narrative* Terence Pacheco [...] and also on prednisone. She follows with [facility] rheumatology and also with [facility] sawyer tology/oncology. She states she does have [...] areas on the thighs, once daily, supply Clobetasol Propionate 0.05 % shampoo 1 [...] Chronic laryngopharyngitis COVID-19 vaccine administered x 2 ([employer]) Difficulty walking Fatigue Fibromyalgia, primary GERD (gastroesophageal [...] her dressing changes at documented in this encounterMid Missouri Mental Health CenterRiaxrxcixf15-36-8146 NoteTrihealth Mccull[facility]10-01-2025 NoteTrihealth Mccullough-Hyde [facility] Hospital09-24-2025 History of Present illness Narrative* Bernabe [...] treatment with ILK today. ILK today, see [facility] for details. Consent: The risks and benefits of intralesional kenalog were discussed prior to the procedure. Specifically, the risk of skin atrophy was reviewed. It was also emphasized that multiple treatments may be necessary. Verbal consent was obtained from the patient/parent. Method: See [facility] for details on administration. 0.1 ml [...] Next Visit: as scheduled documented in this encounterMid Missouri Mental Health CenterVyqmyjqfhk49-56-6908 NoteTrihealth Mccullough-Hyde [facility]09-03-2025 History of Present illness Narrative* Elena Alfonso RN - 01/24/2025 3:40 PM EDT Pt did not receive B12 injection today. Pt called & agreeable to receive it when she returns in2 weeks for her Benlysta infusion. Pharmacy aware and moving date. Elena Alfonso RN documented in this encounterRegency Hospital Company08-28-2025 Telephone encounter Note * Telephone Encounter - Merry Chairez RN - 01/18/2025 5:09 PM EDT MC message read by patient . [facility]08-28-2025 Miscellaneous Notes* Telephone Encounter - Merry Chairez [...] IV, start prior authorization documented in this encounterRegency Hospital Company08-28-2025 Telephone encounter Note * Telephone Encounter - Lynne Ni MD - 01/18/2025 3:34 PM EDT Please Call patient if Silicon Cloudhart note not read to review results/released to [...] sq benlysta to IV, start prior authorization [facility]08-27-2025 Chief complaint+Reason for visit Narrative* Chief Complaint [...] :50am Sacroiliitis March 13, 2025 8 :50am [facility] Work Phone: 1(848) 840-650408-27-2025 Evaluation note* Diagnosis Onset Date Resolution Status Admit Date Lumbosacral spondylosis acuteAugust 2024 10:29amOther chronic painacuteAugust 2024 10:29am SacroiliitisacuteAugust 2024 10:29amLumbosacral spondylosisacuteSeptember 2024 9:23amMid back painacuteSeptember 2024 9:23amOther chronic pain acuteSeptember 2024 9:23amSacroiliitisacuteSeptember 2024 9:23am Abdominal pressureacuteOctober 2024 1:29pmDyspepsiaacuteOctober 2024 1:29pmFatty liveracuteOctober 2024 1:29pmGERD (gastroesophageal reflux disease)acuteOctober 2024 1:29pmLumbosacral spondylosisacuteOct2024 8:50amOther chronic painacuteOctober 2024 8:50amSacroiliitisacute October 2024 8:50am [facility] Work Phone: 1(581) 314-398907-24-2025 NoteHNO ID: [id number] Author: JHONATHAN CONDE RN Service: ? Author Type: Registered Nurse Type: Progress Notes Filed: 12/14/2024 16:36 Note Text: Ran over 2 hours per patient request.[facility]07-24-2025 History of Present illness Narrative* Jhonathan Conde RN - 12/14/2024 3:58 PM EDT Ran over 2 hours per patient request. documented in this encounterRegency Hospital Company07-24-2025 NoteTrihealth Mccullough-Hyde Memorial Hospital07-24-2025 History of Present illness Narrative* Ama Esparza - 12/14/2024 11:03 AM EDT CMN RECEIVED BY [employer] [employer] [facility] VIA FAX, COMPLETED, AND PLACED IN PROVIDER MAILBOX FOR SIGNATURE Ama Esparza School Counsellor [employer] SENDING CMN: Josh SIGNED AND DATED CMN, FAXED TO DME & CONFIRMATION PAGE RECEIVED: 12.14.2024 documented in this encounterRegency Hospital Company07-22-2025 Evaluation note* Diagnosis Onset Date Resolution Status [...] 2024 1:29pmGERD (gastroesophageal reflux disease)acuteOctober 2024 1:29pm [facility] Work Phone: [phone]) 123-622407-10-2025 Evaluation note* Diagnosis Onset Date Resolution Status Admit Date Lumbosacral spondylosis acuteJuly 2024 9:03amOther chronic painacuteJuly 2024 9:03am SacroiliitisacuteJuly 2024 9:03amAbdominal burning sensation in left upper quadrantacuteJuly 2024 10:42amAbdominal massacuteJuly 2024 10:42am Abdominal painacuteJuly 2024 10:42amBloatingacuteJuly 2024 10:42am ConstipationacuteJuly 2024 10:42amDyspepsiaacuteJuly 2024 10:42am Lumbosacral spondylosisacuteAugust 2024 10:29amOther chronic painacute [place] 2024 10:29amSacroiliitisacuteAugust 2024 10:29amLumbosacral spondylosisacuteSeptember 2024 9:23amMid back painacuteSeptember 2024 9:23amOther chronic painacuteSeptember 2025 9:23amSacroiliitisacute February 14, 2025 9:23am [facility] Work Phone: 1(762) 746-826007-10-2025 Telephone encounter Note* Telephone Encounter - Enma Hamm RN - 11/30/2024 8:36 AM EDT Pt updated on results. Will continue with IVIG, as previously scheduled. Denied further needs or concerns at this time. Enma Hamm RN [facility]07-10-2025 Miscellaneous Notes* Telephone Encounter - Enma Hamm RN - 11/30/2024 8:36 AM EDT Pt updated on results. Will continue with IVIG, as previously scheduled. Denied further needs or concerns at this time. Enma Hamm RN documented in this encounterRegency Hospital Company07-09-2025 NoteTrihealth Mccullough-Hyde Memorial Hospital07-09-2025 History of Present illness Narrative* Vaibhav Carvalho APRN.BIRD SITTER - 11/29/2024 8:43 AM EDT Images from the original note were not included. NAME: [facility] NO[facility] [id number] DATE OF SERVICE: .November 29, 2024 (Deven) [...] to monitor; no current intervention required per [facility] recommendations. 7. Pre-diabetes (R73.03) Borderline diabetic. Previously [...] requiring a recent corticosteroid injection by her sales coordinator. She experiences intermittent fatigue, shortness of breath, [...] [facility] - awaiting results. B12 helps especially [...] injections. Shefollows with multiple doctors including and transport pilot, ware tester, sales coordinator and PCP. She has been told they [...] subcutaneously one time a week. Per PCP tiiozcaptwPDMGG-aipdtd-qyzxvyswr (BMX 1:1:1) 1:1:1 liqd Take 5 mL [...] (Crohn's [Other]) Mother . Vaibhav Carvalho APRN, REAL ESTATE OPERATIONS MANAGER-C, [facility] Provided at: [place], [place] CC: Manuel Ferris MD [address] [facility] [address] documented in this encounterRegency Hospital Company07-03-2025 History of Present illness Narrative* KELVIN Pope [...] Next Visit: as scheduled documented in this encounterMid Missouri Mental Health CenterGlglaipczt64-38-9927 Telephone encounter Note* Telephone Encounter - Renea Schneider MA - 11/20/2024 12:00 PM EDT Patient coming in for treatment visit Wednesday11/29/24. Please add lab orders. thanks. Renea Schneider MA [facility]06-23-2025 Chief complaint+Reason for visit Narrative* Chief Complaint [...] :29am Sacroiliitis January 17, 2025 10 :29am [facility] Work Phone: 1([phone]) 264-457306-23-2025 Chief complaint+Reason for visit Narrative * Chief [...] :29am Sacroiliitis January 17, 2025 10 :29am [facility] Work Phone: [phone] 104-731406-23-2025 Evaluation note* Diagnosis Onset Date Resolution Status Admit Date Lumbosacral spondylosis acuteJune 2024 11:15amOther chronic painacuteJune 2024 11:15am SacroiliitisacuteJune 2024 11:15amLumbosacral spondylosisacuteJuly 2024 9:03amOther chronic painacuteJuly 2024 9:03amSacroiliitisacuteJuly 2024 9:03amAbdominal burning sensation in left upper quadrantacuteJuly 2024 10:42amAbdominal massacuteJuly 2024 10:42amAbdominal painacute Day 2024 10:42amBloatingacuteJuly 2024 10:42amConstipationacuteJuly 2024 10:42amDyspepsiaacuteJuly 2024 10:42amLumbosacral spondylosis acuteAugust 2024 10:29amOther chronic painacuteAugust 2024 10:29am SacroiliitisacuteAugust 2024 10:29am [facility] Work Phone: [phone]) 563-157905-17-2025 History of Present illness Narrative* Lynne Ni [...] visit. Either the patient or their legal termite control representative has been informed of the [...] consider osteoporosis treatment if on termite control representative steroids/abnormal bmd, take vitamin D script once [...] for POTs, avoid aggravating triggers, termite control representative pain recommendations per primary care provider/pain [...] measures, may consider osteoporosis treatment if on longterm steroids/abnormal bmd, take vitamin D script once [...] for POTs, avoid aggravating triggers, termite control representative pain recommendations per primary care provider/pain [...] see GI and Infectious disease soon. Thinks [facility] made her have diarrhea. 08/31/23 high wbc [...] measures, may consider osteoporosis treatment if on longterm steroids/abnormal bmd, take vitamin D script if [...] for POTs, avoid aggravating triggers, termite control representative pain recommendations per primary care provider/pain [...] neurology/on metoprolol for POTs, avoid aggravating triggers, longterm pain recommendations per primary care provider/pain clinic/patient [...] Onprednisone 2- 3months ago 5-10mg daily from Dr.Hoy. original skin changes from biopsy improved with [...] Due for eye exam. 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 reStart [...] toes, sit-ups, using row machine termite control representative pain recommendations per primary care provider/pain [...] video & audio (virtual) or phone or wjpz-es-ptkz patient care, completing clinical documentation, obtaining and/or [...] Workers' Compensation? No Do you need an air traffic systems technician? No [facility] MYCHART ZOOM MESSAGE Question 10/06/2024 9:06 [...] my health Strongly Agree documented in this encounterRegency Hospital Company05-17-2025 NoteTrihealth Mccullough-Hyde Memorial Hospital05-17-2025 Instructions* Patient Instructions* Lynne Ni MD [...] (200mg) daily with a meal Please see java engineer every 6-12months while on Hydroxychloroquine. azathioprine [...] touching your toes, sit-ups, using row machine longterm pain recommendations per primary care provider/pain clinic [...] your usual activities immediately. documented in this encounterRegency Hospital Company05-16-2025 Telephone encounter Note * Telephone Encounter - Beatriz Sanchez LPN - 10/06/2024 1:46 PM EDT VM left that below message forwarded to her MC. Requested return call if unable to view message. [facility]05-16-2025 Miscellaneous Notes* Telephone Encounter - Beatriz Sanchez LPN - 10/06/2024 1:46 PM EDT VM left that below message forwarded to her MC. Requested return call if unable to view message. * Telephone Encounter - Lynne Ni MD - 10/06/2024 1:02 PM EDT Please Call patient if MyChart note not read to review results/released to My Chart if tests completed at [facility]: Mildly glucose, one borderline inflammatory [...] accordingly. Lynne Ni MD documented in this encounterRegency Hospital Company05-16-2025 Telephone encounter Note * Telephone Encounter - [...] above. Please process accordingly. Lynne Ni MD [facility]04-30-2025 NoteTrihealth Mccullough-[facility] Hospital04-30-2025 Note [facility]04-29-2025 History of Present illness Narrative* Deborah Arroyo, [facility] - 09/19/2024 10:00 AM EDT Patient [...] GENETIC TESTING: None. SOCIAL HISTORY: Lives in [place], [place] with her and daughter. 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 - Partner's ethnicity: not applicable. - No known -Latvian, Mediterranean, /Cymraes, South Sudanese-Lebanese/Cajun, or Ashkenazi Zoroastrian ancestry unless noted above. - Parental consanguinity: [...] of connective tissue disorders such as hypermobile Emanuel Danlos syndrome. Dr. Lance's physical examination will [...] Marfan syndrome and the vascular type of Emanuel Danlos syndrome, the genetics of these disorders [...] specific underlying connective tissue disorder such as Emanuel Danlos syndrome, therefore no genetic testing was recommended after today's evaluation. Instead, Dr. Lance recommended genetic testing via the connective tissue disorder panel at [facility] for Ariadna's daughter. Follow up will be [...] greater than 50% of which was spent fvnt-ga-cvvf counseling. This plan is being carried out per Dr. Lance's recommendations. Deborah Arroyo MS, [facility] Licensed Genetic Counselor [facility] CC: Dr. Last Lance CC: Ariadna Haley Via [employer] Electronically signed by Deborah Arroyo [facility] at 09/26/2024 2:12 PM EDT documented in this encounterRegency Hospital Company04-29-2025 NoteTrihealth Mccullough-Hyde Memorial Hospital04-29-2025 NoteTrihealth Mccullough-Hy[facility]04-29-2025 History of Present illness Narrative* Ny Lance MD - 09/19/2024 7:46 AM EDT Images from the original note were not included. Department of Medical Genetics and Genomics OUTPATIENT NEW VISIT NOTE Recording using [employer] software for draft documentation of the visit was discussed with the patient/authorized termite control representative; all questions welcomed and answered. Patient/authorized termite control representative agreed to proceed Patient Name: [...] presenting for evaluation of hypermobility and potential Emanuel-Danlos Syndrome (EDS). Ariadna reports a significant change [...] has a history of using a palate substation operator helper generation. She reports delayed wound healing, possible hyperextensible [...] Gangrene - 02/04/2023 Steroid-Induced Osteoporosis - 02/04/2023 [place] Current Use of Systemic Steroids - 02/04/2023 [...] subcutaneously one time a week. Per PCP ygkxzwumtxJJSOG-lpdski-lunhejzag (BMX 1:1:1) 1:1:1 liqd Take 5 mL [...] OF ablation SOCIAL HISTORY: - Lives in [place], [place] with her and daughters. - Highest level of education: High school. 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 Paternal - . - No known -Latvian, Mediterranean, /Cymraes, Ashkenazi Zoroastrian, South Sudanese-Lebanese/Cajun, or Yarsani ancestry unless noted above. - Parental consanguinity: [...] pedigree was collected by Deborah Arroyo MS, [facility] at the patient's separate genetic counseling encounter. The pedigree will be scanned into [employer]. This information was reviewed with thefamily and [...] Management For Physiotherapists by Katarina Reza (Eds.), [facility], 2003, ISBN [phone]; Examination and Treatment of a Patient with [...] symptoms when present, recommending follow-up with a sliding joint maker. 2. Chronic pain syndrome (G89.4) Chronic joint [...] 87 minutes was spent with patient for phqz-hg-zgng evaluation, discussion of genetic differential diagnoses, management plan, counseling, chart review, documentation and coordination of care. Portions of family history were obtained by Deborah Arroyo MS, [facility], which were reviewed with family and edited as necessary. All questions were answered to the best of my knowledge. Contact information has been provided to the patient. Ny Lance MD Staff Plain Clothes Police Officer Department of Medical Genetics and Genomics (DMGG) [facility] Appointments: [facility] CC: Deborah Arroyo, MS, [facility] Ariadna Haley (via [employer]) [address] [facility] [address] Lynne Ni MD CC to PCP via fax: Manuel Ferris [address] [place] [address] documented in this encounterRegency Hospital Company04-28-2025 Telephone encounter Note * Telephone Encounter - Lynne Ni MD - 09/18/2024 4:52 PM EDT Notify patient medication sent as requested Thank you. Patient's request for medication is as follows: Requested Prescriptions Pending Prescriptions Disp Refills belimumab (BENLYSTA) 200 mg/mL auto-injector 12 mL 3 Sig: Inject 200mg (1 pen) subcutaneously once weekly Prescription(s) as above. Please process accordingly. Lynne Ni MD [facility]04-28-2025 Miscellaneous Notes* Telephone Encounter - Lynne Ni [...] (1 pen) subcutaneously once weekly Patient prefers: [facility] Thank you! Maria Esther Pichardo, PharmD Clinical Pharmacist, [employer] [facility] ; Pool: P [facility] Pool #: [id number] documented in this encounterRegency Hospital [facility]04-28-2025 Telephone encounter Note * Telephone Encounter - Macarena Sanchez - 09/18/2024 4:03 PM EDT Patient will be calling to reschedule her IV IG and benlysta. She needs to find a caul fat puller and will call back with the dates that she will be available. [facility]04-28-2025 Miscellaneous Notes* Telephone Encounter - Macarena Sanchez - 09/18/2024 4:03 PM EDT Patient will be calling to reschedule her IV IG and benlysta. She needs to find a caul fat puller and will call back with the dates that she will be available. documented in this encounterRegency Hospital Company04-28-2025 Telephone encounter Note * Telephone Encounter - [...] (1 pen) subcutaneously once weekly Patient prefers: [facility] Thank you! Maria Esther Pichardo, PharmD Clinical Pharmacist, [employer] [facility] ; Pool: P [facility] Pool #: [id number] [facility]04-22-2025 Telephone encounter Note* Telephone Encounter - Karina Pino - 09/12/2024 2:35 PM EDT Patient has been scheduled at [place] [facility]04-22-2025 Miscellaneous Notes* Telephone Encounter - Karina Pino - 09/12/2024 2:35 PM EDT Patient has been scheduled at [place] * Telephone Encounter - Sherrie Cortes - [...] below scheduling for the drug. Sandhya Hicks [facility] You25 minutes ago (11:20 AM) LS Please schedule her every 2 weeks for 3 doses, then every 4 weeks for Benlysta. Sandhya Vicente Laura [facility] You27 minutes ago (11:18 AM) LS Auth is submitted and pending - okay to set her up 7+ days out. When you call her ask her when she had her last SQ dose, per the provider okay to schedule the IV dose 1 week after her SQ dose. Sandhya Vicente * Telephone Encounter - Lynne Ni [...] to Rheum provider. Anahi Becerril RN nurse product support manager: patient would like to know if she can bring her 8 year old to treatmentsin the summer. Basia Samuel RN documented in this encounterRegency Hospital Company04-22-2025 Telephone encounter Note * Telephone Encounter - Sherrie Cortes - 09/12/2024 2:13 PM EDT Patient called back and is now in agreement to schedule for Benlysta. Patient has been scheduled for Wednesday, 09/18. She will make her future appointments at this visit when she can work around her family arrangements. Spoke w/ T Wyatt regarding daughter recommendations and patient informed. Sherrie Cortes [facility]04-21-2025 Telephone encounter Note* Telephone Encounter - Sherrie [...] Laura, RPh You27 minutes ago (11:18 AM) Auth is submitted and pending - okay to set her up 7+ days out. When you call her ask her when she had her last SQ dose, per the provider okay to schedule the IV dose 1 week after her SQ dose. Sandhya Vicente [facility]04-17-2025 Telephone encounter Note* Telephone Encounter - Lynne Ni MD - 09/07/2024 12:52 PM EDT Please start prior authorization for IV benlysta Signed therapy plan with loading doses if approved by insurance. May schedule 1week after last sq injection benlysta pen if approved. Thank you [facility]04-17-2025 Telephone encounter Note* Telephone Encounter - Enma Hamm RN - 09/07/2024 9:04 AM EDT Results discussed with pt. She is set for IVIG 10/04/24. She denies further questions needs or concerns at this time. Enma Hamm RN [facility]04-17-2025 Miscellaneous Notes* Telephone Encounter - Enma Hamm RN - 09/07/2024 9:04 AM EDT Results discussed with pt. She is set for IVIG 10/04/24. She denies further questions needs or concerns at this time. Enma Hamm RN documented in this encounterRegency Hospital Company04-16-2025 Evaluation note* Diagnosis Onset Date Resolution Status Admit Date Lumbosacral spondylosis acuteApril 2024 3:42pmOther chronic painacuteApril 2024 3:42pm SacroiliitisacuteApril 2024 3:42pmLumbosacral spondylosisacuteJune 2024 11:15amOther chronic painacuteJune 2024 11:15amSacroiliitisacuteJune 2024 11:15am [facility] Work Phone: 1(690) 159-386004-16-2025 Evaluation note* Diagnosis Onset Date Resolution Status Admit Date Lumbosacral spondylosis acuteApril 2024 3:42pmOther chronic painacuteApril 2024 3:42pm SacroiliitisacuteApril 2024 3:42pmLumbosacral spondylosisacuteJune 2024 11:15amOther chronic painacuteJune 2024 11:15amSacroiliitisacuteJune 2024 11:15amLumbosacral spondylosisacuteJuly 2024 9:03amOther chronic painacuteJuly 2024 9:03amSacroiliitisacuteJuly 2024 9:03am [facility] Work Phone: 1(327) 795-458504-16-2025 Telephone encounter Note* Telephone Encounter - Basia Samuel RN - 09/06/2024 4:20 PM EDT Patient has requested to switch from Benlysta injections to infusions. Will forward to Rheum provider. Anahi Becerril RN nurse product support manager: patient would like to know [facility] she [facility]. Basia Samuel RN [facility]04-16-2025 History of Present illness Narrative* Vaibhav Carvalho APRN.BIRD SITTER - 09/06/2024 9:00 AM EDT Images from the original note were not included. NAME: Ariadna Haley [facility] NO.: [id number] DATE OF SERVICE: September 06, 2024 (Deven) [...] lower lip done 2 days ago at [facility] - awaiting results. B12 helps especially at beginning of the month. Might consider every 3 weeks in future Forehead is swollen. Not sure it is related to plaquenil and gets worse on days she take the full dose vs. A partial dose. Will follow dermatology regarding this. Started Trrae. Completing steroid taper now down to 10 mg. And stable there. Updated Visit, August 27, 2022: Ariadna Haley returns for follow-up and B12 injection. She has missed a few B12 injections. Shefollows with multiple doctors including and transport pilot, ware tester, sales coordinator and PCP. She has been told they [...] THREE TIMES A DAY^Disp: 135 tablet^Rfl: 1 rqaeshiwvgLUDSQ-gubwjj-acnjwemuc (BMX 1:1:1) 1:1:1 liqd^Take 5 mL by [...] (Crohn's [Other]) Mother . Vaibhav Carvalho APRN, REAL ESTATE OPERATIONS MANAGER-C, [facility] Provided at: [place], [place] CC: Manuel Ferris MD [address] [facility] [address] documented in this encounterRegency Hospital Company04-16-2025 NoteTri[facility]cc[facility]04-14-[facility] History of Present illness Narrative* Gordo Barfield MD - 09/04/2024 3:20 PM EDT Subjective Patient ID: Ariadna Haley is a 43 y.o. female who presents for Thyroid Nodule (Follow up ultrasound [facility] 08/24/24) Thyroid US shows a [id number] left inf pole TR4 nodule. Radiology notes [...] Crohn's disease 03/05/2021 Hair loss 03/05/2021 Hyperlipidemia ([facility]/HCC) 05/31/2014 alf current use of systemic steroids 02/04/2023 Long-term use of high-risk medication 06/15/2022 Long-term use of Plaquenil 03/05/2021 LPRD (laryngopharyngeal reflux disease) 07/06/2023 Megaloblastic anemia due to vitamin B12 deficiency 03/04/2022 Myalgia 07/06/2023 Obesity, Class III, BMI 40-49.9 (morbid obesity) ([facility]) 09/07/2022 Obstructive sleep apnea syndrome 05/20/2022 Oral lesion 07/06/2023 Pain, hip 07/06/2023 Rash and nonspecific skin eruption 03/05/2021 Steroid-induced osteoporosis ([facility]/HCC) 02/04/2023 Somnolence, daytime 05/20/2022 Secondary osteoarthritis of multiple sites 03/05/2021 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 02/04/2023 Swelling of lymph nodes 03/05/2021 Vitamin D deficiency 03/06/2021 Vitamin B12 deficiency 05/31/2014 Pure hypercholesterolemia, unspecified ([facility]) 08/10/2023 Hoarse 08/10/2023 Thyroid nodule ([facility]) 08/10/2023 Shortness of breath 07/13/2023 Paroxysmal supraventricular tachycardia ([facility]) 07/13/2023 PAC (premature atrial contraction) 07/13/2023 [...] Insulin resistance 03/07/2024 Lupus erythematosus 04/06/2024 Sacroiliitis ([facility]) 04/06/2024 Resolved Ambulatory Problems Diagnosis Date Noted No Resolved Ambulatory Problems Past Medical History: Diagnosis Date Cervical lymphadenopathy COVID-19 vaccine administered Difficulty walking Fatigue Fibromyalgia, primary History of removal of cyst 2012 HTN (hypertension) ([facility]) Hx of abnormal cervical Pap smear 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[facility]) Laryngopharyngeal reflux disease Lupus Nonscarring hair loss, unspecified Nontoxic goiter, unspecified ([facility]) Nontoxic single thyroid nodule ([facility]) Numbness Oral thrush Sleep apnea Vitamin [...] % gel ergocalciferol (Vitamin D2) 1.25 MG (93614 UT) capsule Take 50,000 Units by mouth [...] for more aggressive care documented in this encounterMid Missouri Mental Health [id number] Telephone encounter Note* Telephone Encounter - Blank Kimball - 09/02/2024 10:28 AM EDT Called and spoke with patient, patient is scheduled for a VV on 10/07/24 at 8:00am. Patient stated will complete labs a walk in [facility]04-12-2025 Miscellaneous Notes* Telephone Encounter - Blank Kimball [...] diagnoses: Vitamin D deficiency documented in this encounterRegency Hospital Company04-11-2025 Telephone encounter Note * Telephone Encounter - [...] above. Please process accordingly. Lynne Ni MD [facility]04-11-2025 Telephone encounter Note* Telephone Encounter - Cora [...] Ni MD Assoc. diagnoses: Vitamin D deficiency [facility]04-07-2025 Telephone encounter Note* Telephone Encounter - Renea Schneider MA - 08/28/2024 11:04 AM EDT Do you want labs? Patient coming in Wednesday09/06/24 for follow up treatment. Thanks, Renea Schneider MA [facility]04-01-2025 Miscellaneous Notes* Telephone Encounter - Renea Schneider MA - 08/28/2024 11:04 AM EDT Do you want labs? Patient coming in Wednesday09/06/24 for follow up treatment. Thanks, Renea Schneider MA documented in this encounterRegency Hospital [facility]04-01-2025 Miscellaneous Notes* Telephone Encounter - Renea Schneider MA - 11/20/2024 12:00 PM EDT Patient coming in for treatment visit Wednesday11/29/24. Please add lab orders. olu. Renea Schneider MA documented in this encounterRegency Hospital Company03-27-2025 NoteTrihealth Mccull[facility]03-18-2025 Telephone encounter Note* Telephone Encounter - [...] and patient is aware. Basia Samuel RN [facility]03-18-2025 Miscellaneous Notes* Telephone Encounter - Basia Samuel [...] aware. Basia Samuel RN documented in this encounterRegency Hospital Company03-18-2025 NoteTrihealth Mccull[facility]03-18-2025 History of Present illness Narrative* Basia Samuel RN - 08/08/2024 9:03 AM EDT Patient states that she spoke with provider and she will defer IV iron for now, she is taking oral iron and will have labs rechecked in 1 month Basia Samuel RN documented in this encounterRegency Hospital Company03-05-2025 History of Present illness Narrative* Lois Holm [...] lupus being treated by rheumatology at the [facility] on steroids, Plaquenil and monoclonal antibody 5-obstructive [...] , Rfl: ergocalciferol (Vitamin D-2) 1.25 MG (21482 UT) capsule, Take 1 capsule (50,000 Units) [...] my name below, I, Carina BatistaKimberly GILLIS Scribe attest that this documentation has been [...] and plan. documented in this [facility] Work Phone: 1(457) 381-745803-05-2025 Instructions* Patient Instructions* Aissatou Hanson RN - [...] your visit. documented in this [facility] Work Phone: 1(789) 598-913203-04-2025 History of Present illness Narrative* Bernabe English [...] ointment bid. On Plaquenil and Benlysta from ware tester and started IVIG from lacquer sprayer. Follow up Diagnosis: Hidradenitis Location: thighs Last [...] given frequent flares of thrush. Start Nystatin 519862 unit suspension qid x 14 days. Recommended [...] not swallow it. Related Medications nystatin (Mycostatin) 594689 UNIT/ML suspension Take 4 mL (400,000 Units) [...] is needed. Instructed to follow up with [facility] for further work up. Next Visit: 1 year documented in this encounterMid Missouri Mental Health [id number] History of Present illness Narrative* Luna Emanuel [...] been reviewed prior to dispensing the medication. Propeller Engineer Assessment Patient confirmed: Yes Med/dose confirmed: Yes Supplies needed: No supplies needed Missed doses: No Copay amount: 0 Payment confirmed: Yes Delivery method: FedEx Signature required: Waived on patient request Delivery address: [address] [place] [address], [facility] [address] Delivery date: 07/27/24 Questions or concerns for the pharmacist?: No Did you have any side effects believed to be related to this medication, that resulted in hospitalization?: No Current Outpatient Medications on File Prior to Visit Medication Sig elkhcxkdfpQJTFM-qbwfag-ullbsjykj (BMX 1:1:1) 1:1:1 liqd Take 5 mL [...] facility-administered medications on file prior to visit. [facility] RX SPECIALTY CLINICAL ASSESSMENT - [...] longer tolerated. Luna Emanuel documented in this encounterRegency Hospital Company03-04-2025 NoteTrihealth Mccullough-[facility]02-27-2025 NoteHNO ID: [id number] Author: ALHAJI VICTORIA, DO Service: ? Author Type: Physician Type: Progress Notes Filed: 07/21/2024 13:05 Note Text: VIRTUAL VISIT PROGRESS NOTE This is a virtual visit using [employer] Video Visit. It required patient-provider interaction for the medical decision making as documented below. I have communicated my name and active licensure. The patient's identity and physical location were verified at the time of this visit. Either the patient or their legal termite control representative has been informed of the [...] of 18 Current Outpatient Medications Medication Sig fvofcsnoizNEKHW-rdulil-shaxdfvvg (BMX 1:1:1) 1:1:1 liqd Take 5 mL [...] WHILE ON* belimumab ( (more content not included)...[facility]02-27-2025 History of Present illness Narrative* Alhaji Victoria DO - 07/20/2024 11:41 AM EST VIRTUAL VISIT PROGRESS NOTE This is a virtual visit using [employer] Zoom Video Visit. It required patient- provider interaction for the medical decision making as documented below. I have communicated my name and active licensure. The patient's identity and physical location wereverified at the time of this visit. Either the patient or their legal termite control representative has been informed of the [...] of 18 Current Outpatient Medications Medication Sig xpsnchgajuABNOH-amctfm-xnxfrqowj (BMX 1:1:1) 1:1:1 liqd Take 5 mL [...] on the R. The patient or authorized termite control representative has agreed to proceed with [...] axillary nodule which is being followed by manager behavior. Through shared decision making with the patient, [...] DO July 21, 2024 documented in this encounterRegency Hospital Company02-26-20[place] [address] Pain Management Procedure Note Signed Patient: Ariadna Haley MR#: [id number] : 1980 Acct:[id number] Age/Sex: 43 / F Adm Date: 5 Loc: Room: Type: [facility] Attending Dr: Adolfo Kang MD Copies [...] MD 07/19/24 1104 Signed By: 07/19/24 1134 [facility]02-19-2025 Instructions* Patient Instructions* Marky Gasca PA-C - 07/12/2024 2:33 PM EST Alginate therapy (Reflux Raft, Reflux Gourmet) documented in this encounterRegency Hospital Company02-19-2025 NoteTrihealth Mccullough-Hyde [facility]02-19-2025 History of Present illness Narrative* Marky Gasca PA-C - 07/12/2024 2:14 PM EST Images from the original note were not included. [facility] [place] [facility] NOTE CC: Ariadna Haley is a [...] Current medication(s): Current Outpatient Medications Medication Sig gubkgtrwrcZHBXH-klvcnj-qztiwdaiv (BMX 1:1:1) 1:1:1 liqd Take 5 mL [...] obstruction L TM: visualized and intact; pearly siani and translucent, landmarks undistorted; no fluid behind [...] Level: 3 - Low documented in this encounterRegency Hospital Company02-17-2025 Evaluation note* Diagnosis Onset Date Resolution Status Admit Date Lumbosacral spondylosis acuteFebruary 2024 3:16pmOther chronic painacuteFebruary 2024 3:16pm SacroiliitisacuteFebruary 2024 3:16pm [facility] Work Phone: 1(248) 838-696402-17-2025 Evaluation note* Diagnosis Onset Date Resolution Status Admit Date Lumbosacral spondylosis acuteFebruary 2024 3:16pmOther chronic painacuteFebruary 2024 3:16pm SacroiliitisacuteFebruary 2024 3:16pmLumbosacral spondylosisacuteMarch 2024 3:40pmOther chronic painacuteMarch 2024 3:40pmSacroiliitisacute March 2024 3:40pm [facility] Work Phone: 1(969) 603-621102-17-2025 Telephone encounter Note* Telephone Encounter - Krista Braswell MA - 07/10/2024 7:28 AM EST Pt was notified via . [facility]02-17-2025 Miscellaneous Notes* Telephone Encounter - Krista Fonseca MA - 07/10/2024 7:28 AM EST Pt was notified via . * Telephone Encounter - Lynne Ni MD - 07/09/2024 3:48 PM EST Please Call patient if MyChart note not read to review results/released to My Chart if tests completed at [facility]: Mildly high normal wbc, glucose, [...] accordingly. Lynne Ni MD documented in this encounterRegency Hospital Company02-16-2025 Telephone encounter Note * Telephone Encounter - [...] above. Please process accordingly. Lynne Ni MD [facility]02-06-2025 History of Present illness Narrative* Luna Emaneul - 06/29/2024 1:13 PM EST [facility] [...] been reviewed prior to dispensing the medication. Propeller Engineer Assessment Patient confirmed: Yes Med/dose confirmed: Yes Supplies needed: No supplies needed Missed doses: No Estimated days supply on hand: 1 Copay amount: 0 Payment confirmed: Yes Delivery method: FedEx Signature required: Waived on patient request Delivery address: [address] [place] [address] Delivery date: 07/05/24 Questions or concerns for [...] facility-administered medications on file prior to visit. [facility] RX SPECIALTY CLINICAL ASSESSMENT - [...] longer tolerated. Luna Emanuel documented in this encounterRegency Hospital Company02-06-2025 NoteTrihealth Mccullough-[facility]01-31-2025 Telephone encounter Note* Telephone Encounter - Krista Fonseca MA - 06/23/2024 8:27 AM EST Pt has been notified via [employer]. [facility]01-31-2025 Miscellaneous Notes* Telephone Encounter - Krista Fonseca MA - 06/23/2024 8:27 AM EST Pt has been notified via [employer]. * Telephone Encounter - Lynne Ni MD [...] accordingly. Lynne Ni MD documented in this encounterRegency Hospital Company01-30-2025 Telephone encounter Note * Telephone Encounter - [...] above. Please process accordingly. Lynne Ni MD [facility]01-29-2025 Telephone encounter Note* Telephone Encounter - Sherrie Cortes - 06/21/2024 2:10 PM EST Thanks for the clarification! I didn't schedule the patient yet for Iron because of the question below so we are all good. Thank you! Sherrie Cortes [facility]01-29-2025 Miscellaneous Notes* Telephone Encounter - Sherrie Cortes [...] we will recheck. thanks documented in this encounterRegency Hospital Company01-29-2025 Telephone encounter Note * Telephone Encounter - [...] is aware you will call if needed. [facility]01-29-2025 Telephone encounter Note* Telephone Encounter - Vaibhav Carvalho APRN.CNP - 06/21/2024 1:07 PM EST Ok that is fine she can try oral iron Ferrous sulfate 325 mg every other day. Ok to keep her next appointment and we will recheck. thanks [facility]01-28-2025 Telephone encounter Note* Telephone Encounter - Sherrie Cortes - 06/20/2024 8:38 AM EST Left another message for patient. Sent MyChart to call back to schedule infusions when she's ready to schedule and provided phone number. Sherrie Cortes [facility]01-28-2025 Miscellaneous Notes* Telephone Encounter - Sherrie Cortes [...] callback with any questions. documented in this encounterRegency Hospital Company01-24-2025 Telephone encounter Note * Telephone Encounter - Sherrie Cortes - 06/16/2024 3:32 PM EST Call placed to patient, no answer. Left detailed message to call back to schedule for Venofer. Sherrie Cortes [facility]01-24-2025 Telephone encounter Note* Telephone Encounter - Vaibhav Carvalho APRN.CNP - 06/16/2024 12:26 PM EST Called patient and left a message regarding iron infusions. I did inform patient that she is low oniron and we can replace with IV infusion. Will have the office call to schedule. Encouraged to callback with any questions. [facility]01-23-2025 Telephone encounter Note* Telephone Encounter - KELVIN [...] Pt had recent mammogram that was negative [facility] [id number] Miscellaneous Notes* Telephone Encounter - KELVIN Cabrera [...] mammogram that was negative documented in this encounterMid Missouri Mental Health [id number] History of Present illness Narrative* rIaida Pate APRN.BIRD SITTER - 06/14/2024 10:43 AM EST Glucose - SIBO CPT 46531 Hydrogen Breath Test Ariadna Haley 1980 June 14, 2024 Referring Physician: Bandar Portillo NP Indication: NSG TEST INDICATIONS: Diarrhea R19.7, Abdominal Pressure R10.9 Weight: 275 lbs Location: [facility] Duration of Test: 2 hrs Hydrogen [...] Test Results: negative Physician Signature: Iraida Pate APRN.BIRD SITTER documented in this encounterRegency Hospital Company01-21-2025 Progress note* [facility] - Dionne Driver Art Therapist - 06/13/2024 [...] 13, 2024 TIME: 10:29 AM PAGER/CONTACT #: [facility]01-21-2025 Miscellaneous Notes* [facility] - Dionne Driver Art Therapist - 06/13/2024 [...] 10:29 AM PAGER/CONTACT #: documented in this encounterRegency Hospital Company01-21-2025 NoteTrihealth Mccull[facility]01-21-2025 History of Present illness Narrative* Vaibhav Carvalho APRN.BIRD SITTER - 06/13/2024 9:07 AM EST Images from the original note were not included. NAME: Ariadna Haley [facility] NO.: [id number] DATE OF SERVICE: June 13, 2024 (Deven) [...] lower lip done 2 days ago at [facility] - awaiting results. B12 helps especially [...] injections. Shefollows with multiple doctors including and transport pilot, ware tester, sales coordinator and PCP. She has been told they [...] (Crohn's [Other]) Mother . Vaibhav Carvalho APRN, REAL ESTATE OPERATIONS MANAGER-C, [facility] Provided at: [place], [place] CC: Manuel Ferris MD [address] [facility] [address] documented in this encounterRegency Hospital Company01-20-2025 NoteTrihealth Mccullough-[facility]01-20-2025 History of Present illness Narrative* Lee Friedman - 06/12/2024 2:31 PM EST CMN RECEIVED BY [employer] VIA FAX, COMPLETED, AND PLACED IN PROVIDER MAILBOX FOR SIGNATURE Lee Friedman Coordinator III [employer] SENDING CMN: Josh SIGNED AND DATED CMN, FAXED TO DME & CONFIRMATION PAGE RECEIVED: 06.28.2024 documented in this encounterRegency Hospital Company01-20-2025 Telephone encounter Note * Telephone Encounter - Margret Cuenca MA - 06/12/2024 12:00 PM EST Patient has an OTV appointment on 06/13. Please place lab orders. Margret Cuenca MA [facility]01-20-2025 Miscellaneous Notes* Telephone Encounter - Margret Cuenca MA - 06/12/2024 12:00 PM EST Patient has an OTV appointment on 06/13. Please place lab orders. Margret Cuenca MA documented in this encounterRegency Hospital Company01-14-2025 History of Present illness Narrative* Luna Emanuel [...] been reviewed prior to dispensing the medication. Propeller Engineer Assessment Patient confirmed: Yes Med/dose confirmed: Yes Supplies needed: No supplies needed Missed doses: No Estimated days supply on hand: 1 Copay amount: 0 Payment confirmed: Yes Delivery method: FedEx Signature required: Waived on patient request Delivery address: [address] [place] [id number] Delivery date: 06/08/24 Questions or concerns for [...] facility-administered medications on file prior to visit. [facility] RX SPECIALTY CLINICAL ASSESSMENT - [...] longer tolerated. Luna Emanuel documented in this encounterRegency Hospital Company01-14-2025 NoteTri[facility]01-[facility] History of Present illness Narrative* KELVIN [...] Ambulatory Problems Diagnosis Date Noted Autoimmune disease ([facility]) 06/01/2023 Fibromyalgia 06/01/2023 Autonomic dysfunction 06/01/2023 [...] Tobacco use disorder 07/06/2023 Cytomegalovirus infection (HCC) ([facility]) 07/06/2023 Depression, recurrent ([facility]) 06/09/2023 Discoid lupus erythematosus ([facility]) 02/14/2022 Disturbance of skin sensation 07/06/2023 Elevated sed rate 03/05/2021 High total serum IgM 03/05/2021 Enthesopathy of hip region 07/06/2023 Essential hypertension ([facility]) 06/09/2023 Excessive and frequent menstruation with irregular cycle 09/24/2022 Family history of Crohn's disease 03/05/2021 Hair loss 03/05/2021 Hyperlipidemia ([facility]) 05/31/2014 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 02/04/2023 Long-term use of high-risk medication 06/15/2022 Long-term use of Plaquenil 03/05/2021 LPRD (laryngopharyngeal reflux disease) 07/06/2023 Megaloblastic anemia due to vitamin B12 deficiency 03/04/2022 Myalgia 07/06/2023 Obesity, Class III, BMI 40-49.9 (morbid obesity) ([facility]) 09/07/2022 Obstructive sleep apnea syndrome 05/20/2022 Oral lesion 07/06/2023 Pain, hip 07/06/2023 Rash and nonspecific skin eruption 03/05/2021 Steroid-induced osteoporosis ([facility]) 02/04/2023 Somnolence, daytime 05/20/2022 Secondary osteoarthritis [...] Chronic laryngopharyngitis COVID-19 vaccine administered x 2 ([employer]) Difficulty walking Fatigue Fibromyalgia, primary GERD (gastroesophageal [...] Daughter Lung disease Son Diabetes Maternal Grandmother Clesandhya Heart failure Maternal Grandmother Cleginnyura Rheum arthritis Maternal Grandmother Cleginnyura Other (lung [...] behalf of: KELVIN Cabrera documented in this encounterMid Missouri Mental Health [id number] [facility]12-23-2024 History of Present illness Narrative* Deisy Jaime LSW - 05/15/2024 9:09 AM EST Patient's name appears on the [facility] First Time Treatment Report for a non- oncology treatment. No psychosocial assessment is indicated. BILL Rosenberg Goals of Care Advance Directives are not on file. documented in this encounterRegency Hospital Company12-20-2024 History of Present illness Narrative* JenaeLuna - 05/12/2024 12:41 PM EST [facility] [...] been reviewed prior to dispensing the medication. Propeller Engineer Assessment Patient confirmed: Yes Med/dose confirmed: Yes Supplies needed: No supplies needed Missed doses: No Estimated days supply on hand: 1 Copay amount: 0 Payment confirmed: Yes Delivery method: FedEx Signature required: Waived on patient request Delivery address: [address], [facility] [address] Delivery date: 05/16/24 Questions or concerns for [...] facility-administered medications on file prior to visit. [facility] RX SPECIALTY CLINICAL ASSESSMENT - [...] longer tolerated. Luna Emanuel documented in this encounterRegency Hospital Company12-20-2024 NoteTrihealth Mccull[facility]12-04-2024 Nurse Note* Radha Schofield MA - 04/26/2024 9:32 AM EST Patient Identification confirmed: yes. Injection given and documented on JUL per provider order. Radha Schofield MA [facility]12-04-2024 Nurse Note* Radha Schofield MA - 04/26/2024 9:32 AM EST Patient Identification confirmed: yes. Injection given and documented on MAR per provider order. Radha Schofield MA documented in this encounterRegency Hospital Company11-22-2024 Telephone encounter Note * Telephone Encounter - Gay Barnett - 04/14/2024 12:11 PM EST Patient coming in for a sibo breath test on Wednesday and has been on keflex for 3 days and needs to be on for ten so she will need to reschedule [facility]11-22-2024 Miscellaneous Notes* Telephone Encounter - Gay Barnett - 04/14/2024 12:11 PM EST Patient coming in for a sibo breath test on Wednesday and has been on keflex for 3 days and needs to be on for ten so she will need to reschedule documented in this encounterRegency Hospital Company11-19-2024 NoteTrihealth Mccull[facility]11-18-2024 Miscellaneous Notes* Telephone Encounter - Sherrie [...] Please advise. Sherrie Cortes documented in this encounterRegency Hospital Company11-18-2024 Telephone encounter Note * Telephone Encounter - Sherrie Cortes - 04/10/2024 2:12 PM EST Patient requested this appointment be rescheduled for the end of April. She has been scheduled for 05/19, she is all set. Thank you! Sherrie Cortes [facility]11-18-2024 Telephone encounter Note* Telephone Encounter - Shantel Arce [facility] - 04/10/2024 2:07 PM EST SUBQ products (eg, 20% [Cuvitru, Hizentra, Xembify]) or IM products (eg, 16% [GamaSTAN]) intravenously. It would depend upon insurance coverage and would be done as a retail prescription at designated insurance specialty pharmacy. Elpidio Arce, PharmD, BCOP [facility] Work Phone: [phone] 264-119411-18-2024 Telephone encounter Note* Telephone Encounter - Enma [...] appt per pt request Enma Hamm RN [facility]11-18-2024 Telephone encounter Note* Telephone Encounter - Enma Hamm RN - 04/10/2024 12:54 PM EST Called to discuss with pt. She was researching online and found SCIG a weekly subq injection to give herself that is less dose, and has less side effects. Pharmacy/[place]: please advise Enma Hamm RN [facility]11-18-2024 Telephone encounter Note* Telephone Encounter - Vera Najera MD - 04/10/2024 12:26 PM EST Really sorry - I don't recall the home infusion of IVIG - I think it is safer to give it to her in-house as IV so we can monitor infusion reactions. Sorry if I created a misunderstanding. [facility]11-18-20[facility] History of Present illness Narrative* Gordo Barfield [...] Hair loss 03/05/2021 Hyperlipidemia (CMS/HCC) 05/31/2014 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 02/04/2023 Long-term [...] of removal of cyst 2012 HTN (hypertension) ([facility]) Hx of abnormal cervical Pap smear [...] AREA NEEDED ergocalciferol (Vitamin D2) 1.25 MG (08161 [place]) capsule Take 50,000 Units by mouth [...] referred from the [facility] documented in this encounterMid Missouri Mental Health [id number] Telephone encounter Note* Telephone Encounter - Sherrie [...] Triage was involved? Please advise. Sherrie Cortes [facility]11-15-2024 NoteTrihealth Mccull[facility]11-15-2024 History of Present illness Narrative* Deisy Jaime LSW - 04/07/2024 9:30 AM EST Patient's name appears on the [facility] First Time Treatment List for a non- oncology treatment. No psychosocial assessment is indicated. BILL Rosenberg Goals of Care Advance Directives are not on file SIGNATURE: JUSTICE Rosenberg PATIENT NAME: Ariadna Haley DATE: April 07, 2024 TIME: 9:31 AM PAGER/CONTACT #: documented in this encounterRegency Hospital Company11-14-2024 Evaluation + Plan note* Assessment & Plan [...] her Raynaud's. All her questions were answered. [facility]11-14-2024 Miscellaneous Notes* Assessment & Plan Note [...] her questions were answered. documented in this encounterBlanchard Valley Health [facility]11-14-2024 History of Present illness Narrative* Hayden [...] Interpersonal Safety: Unknown (07/15/2023) [facility] [place] [facility] Fear of Current [...] Assessment and Plan: Problem List Rheumatoid arthritis ([facility]) Relevant Medications ibuprofen (ADVIL,MOTRIN) 200 mg tablet predniSONE (STERAPRED DS) 10 mg tablet pack Systemic lupus erythematosus ([facility]) - Primary Relevant Medications ibuprofen (ADVIL,MOTRIN) 200 [...] orders for this visit: Systemic lupus erythematosus ([facility]) - Vas art doppler lwr bilat mult lev/PVR; Future Cold extremities - [facility] [place] [place] - Vas art doppler lwr bilat mult lev/PVR; Future Pain of lower extremity, unspecified laterality - [facility] [place] - Vas art doppler lwr bilat mult lev/PVR; Future Rheumatoid arthritis, involving unspecified site, unspecified whether rheumatoid factor present ([facility]) Current smoker 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 Hayden Arciniega MD, ZIA, RPVI, FSVS, FACS [facility] This note was created with the assistance of a speech recognition program. While intending to generate a timely document that accurately reflects the content of the visit, no guarantee can be provided that every grammatical or spelling mistake has been or will be identified or corrected. Thank you for your understanding. documented in this encounterBlanchard Valley Health [facility]11-14-2024 Instructions* Patient Instructions* Hayden Arciniega MD - 04/06/2024 9:40 AM EST Are You Ready To Kick The Habit? Free Tobacco Cessation Resources [facility] Services [facility] provide all employees with free tobacco cessation services that include: Counseling to understand nicotine addiction Education about medications that can help you successfully quit Assistance with developing a plan to quit Call to set up an individual appointment or find out when group classes will be held: [facility]: [phone] [facility]: [phone] [facility]: [phone] [facility]: [phone] Quit Smoking Action Plan and Resources [facility] offers an eight-week, online smoking cessation plan to all [facility] employees, regardless of whether [place] is your medical insurance provider. Go to www.[email or web address]/employeewellness and click the Health Risk Assessment and Resources link to get started. In the Kdvik6Vxahhm menu, click Action Plans instead of Health Risk Assessment to access the Quit Smoking Action Plan. Additional smoking cessation resources are also available to all [facility] employees on the Keylr1Dipdwf web page at www.IDInteract.Fabulyzer/quitsmoking. [place] Tobacco Cessation Program If [place] is your medical insurance provider, there are more free resources available to you, including: No copays or deductibles on local tobacco cessation counseling services to help you quit Prescription assistance for tobacco cessation medications to help you quit For details about the tobacco cessation program available to [place] members, go to www.IDInteract.Fabulyzer (Search: Tobacco Cessation Program). [place] Tobacco Quit Line 4-979-VFKI-NOW ( ) is a toll-free, telephonic service that helps [place] residents quit smoking and using tobacco. It is staffed by experts who tailor a quit plan for you and provide you with advice. [place] Tobacco Quit Line 2-105-YEMJ-NOW ( ) is a toll-free, telephonic service that helps [place] residents quit smoking and using tobacco. It is staffed by experts who tailor a quit plan for you and provide you with advice. Two weeks of nicotine replacement therapy may be provided at no charge, if needed. Additional Resources These national organizations also offer free information and resources to help you quit tobacco: [place] [employer]--www.cancer.org/healthy/stayawayfromtobacco [place] Heart Association--www.heart.org (Search: Quit Smoking) Centers for Disease Control and Prevention--www.cdc.gov/tobacco [place] Lung Association--www.lungusa.org documented in this encounterBlanchard Valley [facility]11-11-2024 Telephone encounter Note* Telephone Encounter - Marky Nichols DO - 04/03/2024 9:36 AM EST Changed terbinafine to itraconazole at pt request. Mid [facility] Health [id number] Miscellaneous Notes* Telephone Encounter - Marky Nichols DO - 04/03/2024 9:36 AM EST Changed terbinafine to itraconazole at pt request. documented in this encounterMid Missouri Mental Health [id number] Telephone encounter Note* Telephone Encounter - Lynne [...] above. Please process accordingly. Lynne Ni MD [facility]11-10-2024 Miscellaneous Notes* Telephone Encounter - Lynne Ni [...] accordingly. Lynne Ni MD documented in this encounterRegency Hospital Company11-10-2024 History of Present illness Narrative* Marky Nichols, - 04/02/2024 1:30 PM EST HPI: Historian [...] with her immunosuppressive therapy. documented in this encounterMid Missouri Mental Health [id number] Instructions* Patient Instructions* Vera Najera MD - 04/01/2024 4:28 PM EST Obtain body fluid culture from [facility]. B12 shot today and every 4 weeks. Continue Folic acid. Frequent infections plan IVIG for hypogammaglobulinemia Start when approved. RTC 3 months repeat labs same day. IVIG same day. documented in this encounterRegency Hospital Company11-08-2024 NoteTrihealth Mccullough-[facility]11-08-2024 History of Present illness Narrative* Ashly Castillo - 03/31/2024 12:29 PM EST CMN RECEIVED BY [employer] VIA FAX, COMPLETED, AND PLACED IN PROVIDER MAILBOX FOR SIGNATURE Ashly Castillo School Counsellor II 03/31/2024 [employer] SENDING CMN: JOSH SIGNED AND DATED CMN, FAXED TO DME & CONFIRMATION PAGE RECEIVED: 04/11/2024 documented in this encounterRegency Hospital Company11-07-2024 Telephone encounter Note * Telephone Encounter - Mae Elaine - 03/30/2024 8:01 AM EST Pt is scheduled and instructions were sent thru my chart. [facility]11-07-2024 Miscellaneous Notes* Telephone Encounter - Mae Elaine [...] note were not included. documented in this encounterRegency Hospital Company11-06-2024 Telephone encounter Note * Telephone Encounter - Mae Elaine - 03/29/2024 9:02 AM EST Im for pt- saved time on 04/18 7:45 Also sent mychart msg. dm [facility]11-04-2024 NoteTrihealth Mccull[facility]11-04-2024 History of Present illness Narrative* Vera Najera MD - 03/27/2024 3:03 PM EST Images from the original note were not included. NAME: Ariadna Haley [facility] NO.: [id number] DATE OF SERVICE: March 27, 2024 ([place]) Some elements in this clinic note that are critical to medical decision making have been carefully reviewed and included from a prior clinic note dated: December 27, 2023 (Liz) Referring Provider: Dr. Manuel Ferris Additional Clinicians involved in Ariadna Haley's care: VIRTUAL VISIT PROGRESS NOTE This is a virtual visit using InternetArray Beauty Consultant Video Call. It required patient- provider interaction for the medical decision making as documented below. I have communicated my name and active licensure. The patient's identity and physical location wereverified at the time of this visit. Either the patient or their legal termite control representative has been informed of the [...] noted. PLAN: Obtain body fluid culture from [facility]. B12 shot today and every [...] lower lip done 2 days ago at [facility] - awaiting results. B12 helps especially [...] injections. Shefollows with multiple doctors including and transport pilot, ware tester, sales coordinator and PCP. She has been told they [...] CPE Hematology and Oncology Services Provided at: [place], [place] CC: Manuel Ferris MD [address] [facility] [id number] documented in this encounterRegency Hospital Company10-31-2024 History of Present illness Narrative* KELVIN Cabrera [...] Ambulatory Problems Diagnosis Date Noted Autoimmune disease ([facility]) 06/01/2023 Fibromyalgia 06/01/2023 Autonomic dysfunction 06/01/2023 [...] Hair loss 03/05/2021 Hyperlipidemia (CMS/HCC) 05/31/2014 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 02/04/2023 Long-term [...] Chronic laryngopharyngitis COVID-19 vaccine administered x 2 ([employer]) Difficulty walking Fatigue Fibromyalgia, primary GERD (gastroesophageal [...] behalf of: KELVIN Cabrera documented in this encounterMid Missouri Mental Health [id number] Nurse Note* Stacy Gutiérrez MA - 03/23/2024 10:16 AM EDT Patient Identification confirmed: yes. Injection given and documented on JUL per provider order. Stacy Gutiérrez MA [facility]10-31-2024 Nurse Note* Stacy Gutiérrez MA - 03/23/2024 10:16 AM EDT Patient Identification confirmed: yes. Injection given and documented on MAR per provider order. Stacy Gutiérrez MA documented in this encounterRegency Hospital Company10-28-2024 Telephone encounter Note * Telephone Encounter - Mae Elaine - 03/20/2024 12:37 PM EDT Images from the original note were not included. [facility]10-26-2024 History of Present illness Narrative* Lynne Ni [...] visit. Either the patient or their legal termite control representative has been informed of the [...] measures, may consider osteoporosis treatment if on longterm steroids/abnormal bmd, take vitamin D script once [...] for POTs, avoid aggravating triggers, termite control representative pain recommendations per primary care provider/pain [...] consider osteoporosis treatment if on termite control representative steroids/abnormal bmd, take vitamin D script [...] for POTs, avoid aggravating triggers, termite control representative pain recommendations per primary care provider/pain [...] for POTs, avoid aggravating triggers, termite control representative pain recommendations per primary care provider/pain [...] Due for eye exam. Labs sent to [place]/completed in 06/2021 (no results faxed to office, but patient pulled up results on her phone). Chronic current pain in neck, flank area, mid back, knees, legs, arms, all over pain. Better with lyrica 75mg 3times a day. Reports pain 4-12/31. Couple hrs AM stiffness. COVID vaccine [employer] 09/28/20, 10/19/20, 05/26/21. Feels safe at home. [...] pain: yes H/o precedent/frequent infection(s): as above Enthesopathy/[place]'s/heel/plantar tenderness: hands random painful/tingling Skin thickening, psoriasis, [...] COVID-19 original vaccine, age 12+ yr, monovalent ([employer] PURPLE [employer]) 09/28/2020 10/19/2020 05/26/2021 COVID-19 vaccine, age 12+ yr ([employer] COMIRNATY) 02/23/2023 COVID-19 vaccine, age 12+ yr, bivalent ([employer]) 02/08/2022 Pneumovax no Flu shot no Tetanus [...] cbc, cmp, negative hla b27; Outside [place] 06/2021 low vitamin D 16, vitamin b12-307;high [...] systemic lupus erythematosus with other organ involvement ([facility]) (primary encounter diagnosis) M79.7 Fibromyalgia R76.8 CHRISTIAN positive Q79.60 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 Elevated sed rate E55.9 Vitamin D deficiency 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 M54.42, M54.41, G89.29 Chronic bilateral low back pain with bilateral sciatica M79.674, M79.675, G89.29 Chronic pain of toes of both feet Z79.899 Long-term use of high-risk medication Z79.52 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 M79.641, M79.642 Bilateral hand pain M32.9 Systemic lupus erythematosus, unspecified SLE type, unspecified organ involvement status ([facility]) E53.8 Vitamin B12 deficiency L93.0 Discoid [...] consider osteoporosis treatment if on termite control representative steroids/abnormal bmd, take vitamin D script once [...] for POTs, avoid aggravating triggers, termite control representative pain recommendations per primary care provider/pain [...] (200mg) daily with a meal Please see java engineer every 6-12months while on Hydroxychloroquine. Start [...] toes, sit-ups, using row machine termite control representative pain recommendations per primary care provider/pain [...] video & audio (virtual) or phone or [id number] patient care, completing clinical documentation, obtaining and/or [...] records. cc Gay De La Torre CNP;Dr.Douglas aSi Ferris MD Answers submitted by the patient [...] Workers' Compensation? No Do you need an air traffic systems technician? No [facility] MYCHART ZOOM MESSAGE Question 03/16/2024 7:44 PM [...] Score (range: 0 - 47) 14 15 [facility] DOCUMENT/IMAGE UPLOAD Question 03/16/2024 7:51 PM EDT [...] of Right Forearm or Lower Left Leg. [facility] PROMIS 10 ADULT SHORT FORM V1.0 GLOBAL [...] 3) 2 (LESS < or = 5) [facility] PROVIDER UNDERSTANDING CURRENT HEALTH RHEUMATOLOGY Question 2023 11:10 PM EDT - Filed by Patient These questions will help my provider understand my health Strongly Agree documented in this encounterRegency Hospital Company10-26-2024 Instructions* Patient Instructions* Lynne Ni MD - [...] (200mg) daily with a meal Please see java engineer every 6-12months while on Hydroxychloroquine. azathioprine [...] toes, sit-ups, using row machine termite control representative pain recommendations per primary care provider/pain [...] your usual activities immediately. documented in this encounterRegency Hospital Company10-25-2024 Telephone encounter Note * Telephone Encounter - [...] above. Please process accordingly. Lynne Ni MD [facility]10-25-2024 Miscellaneous Notes* Telephone Encounter - Lynne Ni [...] Lynne Ni MD * Telephone Encounter - ManuelDonald, KristaHODA - 03/17/2024 8:10 AM EDT Images from [...] Department VIDEO SPEC EST 03/18/2024 9:[address] [facility] Last Ophthalmology Check for [...] Alhaji Victoria DO Assoc. diagnoses: Pseudomonas infection documented in this encounterRegency Hospital Company10-25-2024 Telephone encounter Note * Telephone Encounter - [...] VIDEO SPEC EST 03/18/2024 9:00 AM [facility] REJ Last Ophthalmology Check for [...] Alhaji Victoria DO Assoc. diagnoses: Pseudomonas infection [facility]10-24-2024 History of Present illness Narrative* Luan Valdivia [...] Ambulatory Problems Diagnosis Date Noted Autoimmune disease ([facility]) 06/01/2023 Fibromyalgia 06/01/2023 Autonomic dysfunction 06/01/2023 [...] Tobacco use disorder 07/06/2023 Cytomegalovirus infection (HCC) ([facility]) 07/06/2023 Depression, recurrent ([facility]) 06/09/2023 Discoid lupus erythematosus ([facility]) 02/14/2022 Disturbance of skin sensation 07/06/2023 Elevated sed rate 03/05/2021 High total serum IgM 03/05/2021 Enthesopathy of hip region 07/06/2023 Essential hypertension ([facility]) 06/09/2023 Excessive and frequent menstruation with irregular cycle 09/24/2022 Family history of Crohn's disease 03/05/2021 Hair loss 03/05/2021 Hyperlipidemia ([facility]) 05/31/2014 alf current use of systemic steroids 02/04/2023 Long-term use of high-risk medication 06/15/2022 Long-term use of Plaquenil 03/05/2021 LPRD (laryngopharyngeal reflux disease) 07/06/2023 Megaloblastic anemia due to vitamin B12 deficiency 03/04/2022 Myalgia 07/06/2023 Obesity, Class III, BMI 40-49.9 (morbid obesity) ([facility]) 09/07/2022 Obstructive sleep apnea syndrome 05/20/2022 Oral lesion 07/06/2023 Pain, hip 07/06/2023 Rash and nonspecific skin eruption 03/05/2021 Steroid-induced osteoporosis ([facility]) 02/04/2023 Somnolence, daytime 05/20/2022 Secondary osteoarthritis of multiple sites 03/05/2021 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 02/04/2023 Swelling of lymph nodes 03/05/2021 Vitamin D deficiency 03/06/2021 Vitamin B12 deficiency 05/31/2014 Pure hypercholesterolemia, unspecified (CMS/HCC) 08/10/2023 Hoarse 08/10/2023 Thyroid nodule ([facility]) 08/10/2023 Shortness of breath 07/13/2023 Paroxysmal supraventricular tachycardia ([facility]) 07/13/2023 PAC (premature atrial contraction) 07/13/2023 [...] of removal of cyst 2012 HTN (hypertension) ([facility]) Hx of abnormal cervical Pap smear Insulin resistance Laryngopharyngeal reflux disease Lupus Numbness Oral thrush Prediabetes Sleep apnea Weakness of limb HISTORY PAST MEDICAL HISTORY SOCIAL HISTORY Past Medical History: Diagnosis Date Anxiety Cervical lymphadenopathy Chronic laryngopharyngitis COVID-19 vaccine administered x 2 ([employer]) Difficulty walking Fatigue Fibromyalgia, primary GERD (gastroesophageal reflux disease) History of removal of cyst 2012 tailbone x2 HTN (hypertension) ([facility]) Hx of abnormal cervical Pap smear Hyperlipidemia ([facility]) Insulin resistance Laryngopharyngeal reflux disease Lupus [...] nursing note reviewed. Exam conducted with a ship's carpenter present. Vitals: Estimated body mass index is [...] Disease with Dr. Baer and Specialist at [facility]. Patient voiced that Dr. Baer recommended surgery, but patient feels that maybe excessive. Specialist at [facility] suggested monitoring. Patient has had mammogram. Patient does not put anything on her breast.Ruled out Mondor's Breast concerns. Discussed [place] Oil at night and Vitamin E lotion. Patient voiced that her breast feel brambila and heavier. Discussed growth of breast and proper support. Breastare not hot nor warm to the touch. Patient to obtain bilateral breast ultrasound. Patient to followup with routine annual appointment and as needed. Documented by Alicia Christine LPN on behalf of: Luan Valdivia DO documented in this encounterMid Missouri Mental Health [id number] [facility] Note Chief Complaint: New patient here to establish care. Ref from Gay De La Torre CNP for hypertension. Former [facility] cardiology patient. Had echo a few weeks ago at [facility]. Says her BP is very [...] past several months. She has seen 2-3 sliding joint maker in the past. She has undergone a [...] on any stimulants including caffeinated beverages, alcohol, nowf-vgg-rqsxccb Sudafed etc. If her symptoms of palpitations persist, particular if she has lightheadedness or dizziness, head upright tilt table test may be reasonable to evaluate for possible dysautonomia's I discussed the side effects and risks of long-term steroid therapy and recommended she discuss with her ware tester weaning off soon as possible Given her morbid obesity, her current symptoms and comorbidities are likely related to excessive weight: I encouraged physical activity, attempts to lose weigh (more content not included)...[facility] 03-07-2024 History of Present illness Narrative* Lee Friedman - 03/07/2024 8:35 AM EDT CMN RECEIVED BY [employer] VIA FAX, COMPLETED, AND PLACED IN PROVIDER MAILBOX FOR SIGNATURE Lee Friedman Coordinator III 03.07.2024 [employer] SENDING CMN: Josh SIGNED AND DATED CMN, FAXED TO [facility] & CONFIRMATION PAGE RECEIVED: 03.07.2024 documented in this encounterReg[facility]10-[facility]24 Telephone encounter Note * Telephone Encounter - [...] to drive that far to [facility].' Further reviewed the reasoning behind the visit needing to be in-person and stated that I would have our automatic teller machine servicer reach out if she is willingto accept an in-person appt. PT requested that I review with our clinical team if this can be a VV before she schedules. I let her know I will do so and be in touch. She had no further questions at this time. Luda Vargas Genetic Counseling Temperer Additional: see Khoa for documentation of scheduling and cancellation with genetics in 2021 [facility]10-01-2024 Miscellaneous Notes* Telephone Encounter - Luda Vargas [...] terrified to drive that far to [facility].' Further reviewed the reasoning behind the visit needing to be in-person and stated that I would have our automatic teller machine servicer reach out if she is willingto accept an in-person appt. PT requested that I review with our clinical team if this can be a VV before she schedules. I let her know I will do so and be in touch. She had no further questions at this time. Luda Vargas Genetic Counseling Temperer Additional: see Khoa for documentation of scheduling and cancellation with genetics in 2021 documented in this encounterRegency Hospital Company09-30-2024 Nurse Note* Kenzie Shannon MA - 02/21/2024 11:13 AM EDT Patient Identification confirmed: yes. Injection given and documented on JUL per provider order. Kenzie Shannon MA [facility]09-30-2024 Nurse Note* Kenzie Shannon MA - 02/21/2024 11:13 AM EDT Patient Identification confirmed: yes. Injection given and documented on JUL per provider order. Kenzie Shannon MA documented in this encounterRegency Hospital Company09-27-2024 Telephone encounter Note * Telephone Encounter - Sherrie Jimenes - 02/18/2024 1:26 PM EDT Patient is calling the [place] office requesting Dr. Ni to place a referral to genetics. Please advise. [facility]09-27-2024 Miscellaneous Notes* Telephone Encounter - Sherrie Jimenes - 02/18/2024 1:26 PM EDT Patient is calling the [place] office requesting Dr. Ni to place a referral to genetics. Please advise. documented in this encounterRegency Hospital Company09-24-2024 Telephone encounter Note * Telephone Encounter - Hansa Javed LPN - 02/15/2024 9:49 AM EDT PAP ORDER FAXED TO [facility] WITH DEMOGRAPHICS, OFFICE NOTES WITH CONFIRMATON NOTED. [facility]09-24-2024 Miscellaneous Notes* Telephone Encounter - Hansa Javed LPN - 02/15/2024 9:49 AM EDT PAP ORDER FAXED TO [facility] WITH DEMOGRAPHICS, OFFICE NOTES WITH CONFIRMATON NOTED. documented in this encounterRegency Hospital Company09-23-2024 History of Present illness Narrative* Elton (Hull Sorter)Luda - 02/14/2024 2:32 PM EDT [facility] [...] been reviewed prior to dispensing the medication. Propeller Engineer Assessment Patient confirmed: Yes Med/dose confirmed: Yes Missed doses: No Estimated days supply on hand: 1 Next cycle/dose due: 02/17/24 Copay amount: 0 Payment confirmed: Yes Delivery method: FedEx Signature required: Waived on patient request Delivery address: [address] [place] [address] [place], [place] Delivery date: 02/17/24 Questions or concerns [...] facility-administered medications on file prior to visit. [facility] RX SPECIALTY CLINICAL ASSESSMENT - [...] and/or no longer tolerated. Luda Conde CPhT [facility] [phone] documented in this encounterRegency Hospital Company09-23-2024 History of Present illness Narrative* Elton EpsteinHull SorterLuda Benz - 02/14/2024 2:26 PM EDT Benefits investigation was conducted, indicating that a re-authorization is required for [employer]. WARREN was initiated and pending review. Plan Name: Keesha Armstrong Balderrama: [id number] Luda Conde CPhT [facility] [phone] documented in this encounterRegency Hospital Company09-23-2024 Instructions* Patient Instructions* Lexus Heck APRN.BIRD SITTER - 02/14/2024 8:03 AM EDT Images from the original note were not included. Your most recent body mass index (BMI) that we have on record is 43.08 kg/m2. Obstructive sleep apnea (JOSE RAFAEL) worsens with an increase in weight; reduction in weight may improve or resolve your JOSE RAFAEL. Ifyou are not already seeking treatment, there are resources available at the [facility] such as a nutrition consultation or referral to weight management programs at our [facility]. Please let us know if we can [...] deductible,co-payments, and out of pocket expenses. DME: [facility] [phone] - Remember to clean your mask and equipment regularly, as directed. - Avoid use of ozone lead assembler, SoClean devices, or UV cleaning devices - [...] the central scheduling system for the [facility] at [phone]. [facility] now offers direct scheduling for patients to schedule appointments. Virtual visits are also available. Call the office at [phone], option #5 for questions. documented in this encounterRegency Hospital Company09-23-2024 History of Present illness Narrative* Lexus Heck APRN.CNP - 02/14/2024 8:00 AM EDT Images from the original note were not included. [facility] Virtual Visit Follow up/ Established patient visit Date of last visit : 07/27/2022 I have communicated my name and active licensure. The patient's identity and physical location wereverified at the time of this visit. Either the patient or their legal termite control representative has been informed of the [...] : PAP therapy DME: Josh MOJICA fax: [phone] DME ph: [phone] PAP History: Current PAP settin-15 cm H2O. [...] are sorted in reverse-chronological order 04/12/2022 07/23/2022 [place] Sleepiness Scale Score 4 (No clinically significant [...] - Follow up 12 months. Lexus Heck APRN.BIRD SITTER documented in this encounterRegency Hospital Company09-18-2024 History of Present illness Narrative* Zita Cuellar, CARISSA - 02/09/2024 8:00 AM EDT Images from the original note were not included. CHIEF COMPLAINT REASON FOR VISIT : leg pain HPI: Ariadna Haley is a 43 y.o. female who presents for [facility] audiov[facility]it. She is at home. She [...] Chronic laryngopharyngitis COVID-19 vaccine administered x 2 ([employer]) Difficulty walking Fatigue Fibromyalgia, primary GERD (gastroesophageal reflux disease) History of removal of cyst 2013 tailbone x2 HTN (hypertension) ([facility]) Hx of abnormal cervical Pap smear Hyperlipidemia ([facility]) Insulin resistance Laryngopharyngeal reflux disease Lupus (CMS/HCC) [...] Depression: Not at risk (12/27/2023) Received from [facility] PHQ-2 PHQ-2 score: 1 REVIEW OF SYMPTOMS: [...] patient, and coordinating care. documented in this encounterMid Missouri Mental Health [id number] NoteHNO ID: [id number] Author: ALHAJI VICTORIA, DO Service: ? Author Type: Physician Type: Progress Notes Filed: 01/27/2024 16:54 Note Text: VIRTUAL VISIT PROGRESS NOTE This is a virtual visit using Tauntrom Video Visit. It required patient-provider interaction for the medical decision making as documented below. I have communicated my name and active licensure. The patient's identity and physical location were verified at the time of this visit. Either the patient or their legal termite control representative has been informed of the [...] of green drainage. She saw her OB/ environment friendly landscape designer. This was thought to be secondary to [...] SOB/WHEEZING, and NO DYSPHAG (more content not included)...[facility]09-05-2024 History of Present illness Narrative* Alhaji Victoria DO - 01/27/2024 10:10 AM EDT Images from the original note were not included. VIRTUAL VISIT PROGRESS NOTE This is a virtual visit using MyChart Zoom Video Visit. It required patient- provider interaction for the medical decision making as documented below. I have communicated my name and active licensure. The patient's identity and physical location wereverified at the time of this visit. Either the patient or their legal termite control representative has been informed of the [...] of green drainage. She saw her OB/ environment friendly landscape designer. This was thought to be secondary to [...] thrush Alhaji Victoria DO documented in this encounterRegency Hospital Company09-03-2024 Nurse Note* Margret Cuenca MA - 01/25/2024 11:30 AM EDT Patient Identification confirmed: yes. Injection given and documented on JUL per provider order. Margret Cuenca MA [facility]09-03-2024 Nurse Note* Margret Cuenca MA - 01/25/2024 11:30 AM EDT Patient Identification confirmed: yes. Injection given and documented on MAR per provider order. Margret Cuenca MA documented in this encounterRegency Hospital Company08-27-2024 History of Present illness Narrative* Arianne Mckinley [...] laboratory parameters, disease state markers and outcomes. Adiee Dwight, PharmD Clinical Pharmacist, [employer] [facility] ; Pool: P [facility] Pool #: [id number] Propeller Engineer Assessment Patient confirmed: Yes Med/dose confirmed: Yes Supplies needed: No supplies needed Missed doses: No Estimated days supply on hand: (At least 1 dose) Next cycle/dose due: 01/20/24 Copay amount: 0 Payment confirmed: Yes Delivery method: FedEx Signature required: Waived on patient request Delivery address: [address] [place] [address] Delivery date: 01/21/24 Questions or concerns for [...] facility-administered medications on file prior to visit. [facility] RX SPECIALTY CLINICAL ASSESSMENT - [...] no longer tolerated. Arianne Mckinley CPhT, Inflammatory/Allergy [facility] [phone] documented in this encounterRegency Hospital Company08-21-2024 Telephone encounter Note * Telephone Encounter - Krista Braswell MA - 01/12/2024 10:45 AM EDT Pt has been notified via CyberSettle. [facility]08-21-2024 Miscellaneous Notes* Telephone Encounter - Krista Fonseca MA - 01/12/2024 10:45 AM EDT Pt has been notified via CyberSettle. 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 Please process accordingly. 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 [facility]08-08-2024 Miscellaneous Notes* Telephone Encounter - Krista Fonseca [...] vitamin b12 every month documented in this encounterRegency Hospital Company08-08-2024 Telephone encounter Note * Telephone Encounter - [...] likely reactive, continue vitamin b12 every month [facility]08-05-2024 Telephone encounter Note* Telephone Encounter - Enma Hamm RN - 12/27/2023 12:49 PM EDT Pt informed of MM message and denies any questions, needs or concerns at this time. Appointments verified. Enma Hamm RN [facility]08-05-2024 Miscellaneous Notes* Telephone Encounter - Enma Hamm, AVILA - 12/27/2023 12:49 PM EDT Pt informed [...] thinners. Neda Hill PA-C documented in this encounterRegency Hospital Company08-05-2024 Telephone encounter Note * Telephone Encounter - Neda Hill PA-C - 12/27/2023 12:44 PM EDT Please call and inform the patient that I reviewed her [facility] records and there is no evidence of a blood clot and she does not need to be on blood thinners. Neda Hill PA-C [facility] Work Phone: 1(544) 527-308308-05-2024 Nurse Note* Margret Cuenca MA - 12/27/2023 11:44 AM EDT Patient Identification confirmed: yes. Injection given and documented on MAR per provider order. Margret Cuenca MA [facility]08-05-2024 Nurse Note* Margret Cuenca MA - 12/27/2023 11:44 AM EDT Patient Identification confirmed: yes. Injection given and documented on MAR per provider order. Margret Cuenca MA documented in this encounterRegency Hospital Company08-05-2024 History of Present illness Narrative* Neda Hill PA-C - 12/27/2023 11:30 AM EDT Images from the original note were not included. NAME: Ariadna Haley [facility] NO.: [id number] DATE OF SERVICE: December 27, 2023 (Liz) [...] labs 1 week before. Request records from [facility] from PE/elevated d-dimer Frequent infections [...] lower lip done 2 days ago at [facility] - awaiting results. B12 helps especially [...] injections. Shefollows with multiple doctors including and transport pilot, ware tester, sales coordinator and PCP. She has been told they [...] March 04, 2022: Ariadna Torres Jose Carlosfrancisco javire presents today Hematology and Oncology evaluation. She [...] which included preparing to see the patient, [id number]-[id number] patient care, completing clinical documentation, obtaining and/or reviewing separately obtained history, performing a medically appropriate examination, counseling and educating the pat ient/family/caregiver, ordering medications, tests, or procedures, communicating with other HCPs (not separately reported), independently interpreting results (not separately reported), communicatingresults to the patient/family/caregiver, and care coordination (not separately reported). Neda Hill PA-C Hematology and Oncology Services Provided at: [place], [place] CC: Manuel Ferris MD [address] [facility] [id number] documented in this encounterRegency Hospital Company07-22-2024 History of Present illness Narrative* Elton (Hull Sorter)Luda - 12/13/2023 11:44 AM EDT [facility] [...] laboratory parameters, disease state markers and outcomes. Propeller Engineer Assessment Patient confirmed: Yes Med/dose confirmed: Yes Missed doses: No Estimated days supply on hand: 1 Next cycle/dose due: 12/16/23 Copay amount: 0 Payment confirmed: Yes Delivery method: FedEx Signature required: Waived on patient request Delivery address: [address] [place] [address] Delivery date: 12/17/23 Questions or concerns for [...] facility-administered medications on file prior to visit. [facility] RX SPECIALTY CLINICAL ASSESSMENT - INFLAMMATORY CONDITIONS V6: Assessment to use: Refill [facility] VACCINE INFORMATION [facility] TREATMENT PLAN INFORMATION Luda Conde CPhT [facility] [phone] documented in this encounterRegency Hospital Company07-08-2024 Nurse Note* Stacy Gutiérrez MA - 11/29/2023 1:47 PM EDT Patient Identification confirmed: yes. Injection given and documented on MAR per provider order. Stacy Gutiérrez MA [facility]07-08-2024 Nurse Note* Stacy Gutiérrez MA - 11/29/2023 1:47 PM EDT Patient Identification confirmed: yes. Injection given and documented on MAR per provider order. Stacy Gutiérrez MA documented in this encounterRegency Hospital Company07-05-2024 Telephone encounter Note * Telephone Encounter - Katherin Schneider RN - 11/26/2023 11:34 AM EDT Please sign pended script Maryam Schneider RN [facility]07-05-2024 Miscellaneous Notes* Telephone Encounter - Katherin Schneider RN - 11/26/2023 11:34 AM EDT Please sign pended script Maryam Schneider RN documented in this encounterRegency Hospital Company06-24-2024 History of Present illness Narrative* Aidee Quintanilla, [facility] - 11/15/2023 1:00 [...] laboratory parameters, disease state markers and outcomes. Propeller Engineer Assessment Patient confirmed: Yes Med/dose confirmed: Yes Missed doses: No Estimated days supply on hand: 1 Next cycle/dose due: 11/18/23 Copay amount: 0 Payment confirmed: Yes Delivery method: FedEx Signature required: Waived on patient request Delivery address: [address] [place] [address] Delivery date: 11/17/23 Questions or concerns for [...] facility-administered medications on file prior to visit. [facility] Visit Assessment - Inflammatory Conditions: [...] Yes Aidee Quintanilla, PharmD Clinical Pharmacist, [employer] [facility] ; Pool: P [facility] Pool #: [id number] documented in this encounterRegency Hospital Company06-20-2024 Telephone encounter Note * Telephone Encounter - [...] above. Please process accordingly. Lynne Ni MD [facility]06-20-2024 Miscellaneous Notes* Telephone Encounter - Lynne Ni [...] High total serum IgM documented in this encounterRegency Hospital Company06-20-2024 Telephone encounter Note * Telephone Encounter - [...] [SQWSR] 12/02/23 03/02/24 09/09/23 Auth. provider: Vera Njaera MD Assoc. diagnoses: Megaloblastic anemia due to vitamin B12 deficiency, High total serum IgM [facility]06-06-2024 Telephone encounter Note* Telephone Encounter - Karina Morales RN - 10/28/2023 1:33 PM EDT Pt read CyberSettle message. [facility]06-06-2024 Miscellaneous Notes* Telephone Encounter - Karina Morales RN - 10/28/2023 1:33 PM EDT Pt read CyberSettle message. * Telephone Encounter - Lynne Ni [...] soon! Warm regards, :) documented in this encounterRegency Hospital Company06-06-2024 Telephone encounter Note * Telephone Encounter - [...] you feel better soon! Warm regards, :) [facility]06-05-2024 Nurse Note* Margret Cuenca MA - 10/27/2023 2:43 PM EDT Patient Identification confirmed: yes. Injection given and documented on MAR per provider order. Margret Cuenca MA [facility]06-05-2024 Nurse Note* Margret Cuenca MA - 10/27/2023 2:43 PM EDT Patient Identification confirmed: yes. Injection given and documented on MAR per provider order. Margret Cuenca MA documented in this encounterRegency Hospital Company05-14-2024 History of Present illness Narrative* Lynne Ni [...] visit. Either the patient or their legal termite control representative has been informed of the [...] consider osteoporosis treatment if on termite control representative steroids/abnormal bmd, take vitamin D script [...] neurology/on metoprolol for POTs, avoid aggravating triggers, longterm pain recommendations per primary care provider/pain clinic/patient [...] for POTs, avoid aggravating triggers, termite control representative pain recommendations per primary care provider/pain [...] -12/31. Couple hrs AM stiffness. COVID vaccine [employer] 09/28/20, 10/19/20, 05/26/21. Feels safe at home. [...] COVID-19 original vaccine, age 12+ yr, monovalent ([employer] - PURPLE TOP) 09/28/2020 10/19/2020 05/26/2021 COVID-19 vaccine, age 12+ yr, 2022- season ([employer]) 02/23/2023 COVID-19 vaccine, age 12+ yr, bivalent ([employer]) 02/08/2022 Pneumovax no Flu shot no Tetanus [...] cbc, cmp, negative hla b27; Outside [place] 06/2021 low vitamin D 16, vitamin b12-307;high [...] consider osteoporosis treatment if on termite control representative steroids/abnormal bmd, take vitamin D script once [...] neurology/on metoprolol for POTs, avoid aggravating triggers, longterm pain recommendations per primary care provider/pain clinic/patient [...] (200mg) daily with a meal Please see java engineer every 6-12months while on Hydroxychloroquine. Start [...] touching your toes, sit-ups, using row machine longterm pain recommendations per primary care provider/pain clinic [...] video & audio (virtual) or phone or [id number] patient care, completing clinical documentation, obtaining and/or [...] Workers' Compensation? No Do you need an air traffic systems technician? No [facility] MYCHART ZOOM MESSAGE Question 2023 [...] (range: 0 - 100) 2 2 3 [facility] PROMIS CAT V1.0 - FATIGUE-28 DAYS Question 2023 11:05 PM EDT - Filed by Patient 05/24/2023 8:33 PM EDT - Filed by Patient 04/26/2023 3:45 PM EDT - Filed by Patient PROMIS Fatigue T-Score (range: 10 - 90) 59 (mild) Abnormal 62 (moderate) Abnormal 72 (severe) Abnormal PROMIS Fatigue Percentile (range: 0 - 100) 18 12 1 F PROMIS CAT V1.1-PAIN INTERFERENCE-28 DAYS Question 2023 11:06 PM EDT - Filed by Patient 05/24/2023 8:35 PM EDT - Filed by Patient 04/26/2023 3:47 PM EDT - Filed by Patient PROMIS Pain Interference T-Score (range: 10 - 90) (range: 10 - 90) 66 (moderate) Abnormal 70 (moderate) Abnormal 68 (moderate) Abnormal PROMIS Pain Interference Percentile (range: 0 - 100) 5 2 4 [facility] SLAQ QUESTIONNAIRE Question 2023 11:10 PM EDT [...] SLAQ Score (range: 0 - 47) 15 [facility] PROVIDER UNDERSTANDING CURRENT HEALTH RHEUMATOLOGY Question 2023 [...] 3 (WITHIN +/- 5) documented in this [facility]Reg[facility] Nurse Note* Renea Schneider MA - 09/30/2023 10:53 AM EDT Patient Identification confirmed: yes. Injection given and documented on JUL per provider order. Renea Schneider MA [facility]05-01-[facility] Evaluation note* Author Ketty Mccall [facility] CenterAuthoredMay 2023 [id number] female referred to the gastroenterology clinic for [...] switch omeprazole to pantoprazole and monitor symptoms [facility] Work Phone: 1(204) 530-926604-18-2024 Instructions* Patient Instructions* Vera Najera MD - 09/09/2023 4:47 PM EDT Follow up in 13 Weeks - labs 1 week before. B12 shot every 4 weeks. Continue Folic acid. documented in this encounterRegency Hospital Company04-18-2024 History of Present illness Narrative* Vera Najera MD - 09/09/2023 4:30 PM EDT NAME: Ariadna Haley [facility] NO.: [id number] DATE OF SERVICE: September 09, 2023 ([place]) Some elements in this clinic note that are critical to medical decision making have been carefully reviewed and included from a prior clinic note dated: June 10, 2023 (Marquis) Referring Provider: Dr. Manuel Ferris Additional Clinicians involved in Ariadna Haley's care: VIRTUAL VISIT PROGRESS NOTE This is a virtual visit using [employer] Video Call. It required patient- provider interaction for the medical decision making as documented below. I have communicated my name and active licensure. The patient's identity and physical location wereverified at the time of this visit. Either the patient or their legal termite control representative has been informed of the [...] lower lip done 2 days ago at [facility] - awaiting results. B12 helps especially [...] injections. Shefollows with multiple doctors including and transport pilot, ware tester, sales coordinator and PCP. She has been told they [...] CPE Hematology and Oncology Services Provided at: [place], [place] CC: Manuel Ferris MD [address] [facility] [address] documented in this encounterRegency Hospital Company04-15-2024 Miscellaneous Notes* Telephone Encounter - Maynor Bryson MA - 09/06/2023 7:21 AM EDT patient has viewed the CyberSettle message per [employer]. * Telephone Encounter - Lynne Ni MD - 09/04/2023 6:30 PM EDT Please Call patient if [employer] note not read to review results/released to [...] accordingly. Lynne Ni MD documented in this encounterRegency Hospital Company04-09-2024 Nurse Note* Margret Cuenca MA - 08/31/2023 10:35 AM EDT Patient Identification confirmed: yes. Injection given and documented on JUL per provider order. Margret Cuenca MA documented in this encounterRegency Hospital Company04-01-2024 Nurse Note* Renea Schneider MA - 09/30/2023 10:53 AM EDT Patient Identification confirmed: yes. Injection given and documented on JUL per provider order. Renea Schneider MA documented in this encounterRegency Hospital Company03-14-2024 Nurse Note* Margret Cuenca - 08/05/2023 11:16 AM EDT Patient Identification confirmed: yes. Injection given and documented on JUL per provider order. Margret Cuenca documented in this encounterRegency Hospital Company02-20-2024 Nurse Note* Margret Cuenca - 07/13/2023 12:01 PM EST Patient Identification confirmed: yes. Injection given and documented on JUL per provider order. Margret Cuenca documented in this encounterRegency Hospital Company02-20-2024 History of Present illness Narrative* Lois Holm [...] and is being cared for at the [facility] utilizing steroids, Plaquenil and injectable medic ation(Benlystal). The patient record indicating having had cardiac catheterization in [place] 3 years ago which was normal. I have the report available for my review. [facility] [...] lupus being treated by rheumatology at the [facility] on steroids, Plaquenil and monoclonal antibody 5-sleep [...] , Rfl: ergocalciferol (Vitamin D-2) 1.25 MG (89737 UT) capsule, Take 1 capsule (50,000 Units) [...] and plan. documented in this [facility] Work Phone: 1(641) 767-708802-20-2024 Instructions* Patient Instructions* Lila Tejeda LPN - [...] your visit. documented in this [facility] Work Phone: 1(205) 988-514002-13-2024 History of Present illness Narrative* Kade Early [...] , Rfl: ergocalciferol (Vitamin D2) 1.25 MG (83138 UT) capsule, Take 50,000 Units by mouth [...] Chronic laryngopharyngitis COVID-19 vaccine administered x 2 ([employer]) History of removal of cyst 2013 tailbone [...] reflexes: Stu's absent. Ankle clonus absent. Coordination Prqvun-jy-yovj, rapid alternating movements and lpxj-gt-ppup normal bilaterally without dysmetria. Gait Normal casual, [...] Lyrica 100 mg TID. She is on kuetawjimd54 mg once daily. Increase prednisone 10 mg BID for 10 days. documented in this encounterMid Missouri Mental Health CenterSujexbhyag60-09-9619 History of Present illness Narrative* Michelle Jasmine, WEATHER TEACHER-BIRD SITTER - 06/09/2023 8:30 AM EST Ariadna Haley is a 42 y.o. female that presents to the office today for new patient evaluation asself referral for palpitations and elevated heart rates. She has a PMH of HTN, HLD, tachycardia, anemia, JOSE RAFAEL with CPAP compliance, lupus, autonomic dysfunction, arthritis, chronic back pain. She has undergone cardiac workup in the past in [place] as noted below. She also states that she follows withNeurology for possible POTS syndrome. Admits to daily tobacco use, 1 pack of cigarettes per day. Denies vaping, ETOH, recreational drugs. Admits to drinking approximately 1 pot of coffee per day. Denies daily exercise. 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 Family history [...] , Rfl: ergocalciferol (Vitamin D-2) 1.25 MG (13129 UT) capsule, Take 1 capsule (50,000 Units) [...] this document. documented in this [facility] Work Phone: 1(940) 577-773601-03-2024 Instructions* Patient Instructions* Christie Phan MD - 05/26/2023 5:43 PM EST Images from the original note were not included. https://[employer].Fabulyzer/tofu-bolognese/ https://nutritionstudies.org/aft-ha-euigtchdv-cvppufrm-pr-qxkhs-u-bjwvp-pswd-randee ua-mroxv-jneloputd/ https://www.0-6.com/blog/plantbasedkids https://TellFi/afdcr-hoicn-gurz-for-kids/ https://Zecter/kuu-gj-efmxxetktm-jzse-kwdt-qf-w-dzhzl-vnbpz-diet/ WHAT TO EAT? Breakfast: Overnight Oats Base ingredients: 1/3 cup rolled oats, 1/3 cup plain almond milk, 1tsp kyle seeds. Optional add-ins: cinnamon, flax seeds, honey or maple syrup, nut butter, chopped nuts. Toppings: Any fresh fruit chopped. Mix together and place in refrigerator. Can make 5 at a time for the whole week. Homemade fresh oatmeal. Can also make in the crockpot. Macedonian muffin/almond butter topped with fresh berries Macedonian muffin, cooked egg/egg white, tomato, thin slice djiboutian cheese Fresh berries, hard boiled egg, whole wheat toast Plain yogurt topped with berries, unsalted nuts, drizzle of honey Whole grain toast/Macedonian muffin topped with mashed avocado and tomatoes Lunch: Dinner leftovers packed in Tupperware, side of fruit Salad mixture topped with a protein (chick breast/tuna/hard boiled egg/beans), dressing and side offruit Dinner - Refer to plate corporate event planner pictures to help select foods and portion ratios of protein, vegetables/starches. Keep it simple and rotate your favorite meals. Sheet nix meals Soups Grilled protein/vegetables/side of starch (plate corporate event planner picture) Stir can with protein, mixed vegetables, and riced cauliflower or portion controlled whole grain rice. Make your own bowls - Kittitian/Equatorial Guinean/ theme Jessie with Zoodles (spiralized vegetable noodles). Roasted vegetable wraps Alter traditional recipes to reflect HIGH QUALITY ingredients in the right QUANTITIES. Snacks - portion controlled: Raw veggies (can have with hummus, mashed avocado, salsa). Unsalted nuts Fruit (1 serving). (optional side of peanut butter) Air pop popcorn Melrose and low fat djiboutian cheese rolled up String cheese Protein balls (mix rolled oats, nut butter, flax seeds, dash almond milk). Beverages: Water Coffee, Hot tea Unsweetened ice tea EATING OUT: Research menu online, include nutritional information. Make your order decision before getting to restaurant. Stick to recommended portions (plate corporate event planner picture). Ask for substitutions or [...] baked potato, sprouted grain bread, chick peas https://www.[employer].Fabulyzer/article/4612864/gmnvdpmbksjxx-qwhu-wobc-for-beginners / https://www.[employer].Fabulyzer/category/4274/gqwfgjsavdimx-gtgn-zrrgrd/ https://www.[employer]/category/4300/nhtpmrisgchad-cbsg-byub-plans/ My current favorite cookbooks are documented in this encounterRegency Hospital Company01-03-2024 History of Present illness Narrative* Christie Phan MD - 05/26/2023 5:00 PM EST Images from the original note were not included. [facility] Follow-Up Appointment [...] the date of the service which included ywyk-gt-xoge patient care, completing clinical documentation, performing a medically appropriate examination, counseling and educating the patient/family/caregiver, and ordering medications, tests, or procedures. Christie Phan MD, PA, [facility] Lifestyle Medicine Specialist documented in this encounterRegency Hospital Company12-04-2023 Miscellaneous Notes* Telephone Encounter - Renate Lawrence MA - 04/26/2023 5:26 PM EST Medication pending with new pharmacy information. documented in this encounterRegency Hospital Company12-04-2023 History of Present illness Narrative* Christie Phan MD - 04/26/2023 4:15 PM EST Images from the original note were not included. [facility] Virtual Follow-Up [...] the date of the service which included rjao-re-sfhm patient care, completing clinical documentation, performing a medically appropriate examination, counseling and educating the patient/family/caregiver, and ordering medications, tests, or procedures. I have communicated my name and active licensure. The patient's identity and physical location wereverified at the time of this visit. Either the patient or their legal termite control representative has been informed of the risks and benefits of -- and alternatives to -- treatment through a remote evaluation andconsents to proceed with the evaluation remotely. Christie Phan MD, MA, [facility] Lifestyle Medicine Specialist documented in this encounterRegency Hospital Company12-04-2023 Nurse Note* Renate Lawrence MA - 04/26/2023 2:46 PM EST Spoke to Ariadna Haley, confirmed patient is registered on [employer] and is prepared for their appointment. Confirmed the patient has updated medications, allergies, and questionnaires via [employer]. Informed patient if there is an issue with the connection, provider will send the patient a secure link. If provider is running late, patient should remain connected to the visit. Patient verbalized understanding. documented in this [facility]11-30-2023 Miscellaneous Notes* Telephone Encounter - Enma Hamm RN - 04/22/2023 3:48 PM EST Pt called for Iron results; possible need for transfusion. Pt aware no need for iron infusion at this time. Enma Hamm RN documented in this [facility]11-24-2023 History of Present illness Narrative* Kenzie Shannon - 04/16/2023 10:55 AM EST Patient Identification confirmed: yes. Injection given and documented on JUL per provider order. Kenzie Shannon documented in this encounterRegency Hospital Company10-27-2023 History of Present illness Narrative* Kenzie Shannon - 03/19/2023 11:06 AM EDT Patient Identification confirmed: yes. Injection given and documented on JUL per provider order. Kenzie Shannon documented in this encounterRegency Hospital Company10-24-2023 History of Present illness Narrative* Marija Ziegler - 03/16/2023 10:13 AM EDT CMN RECEIVED BY [employer] VIA FAX, COMPLETED, AND PLACED IN PROVIDER MAILBOX FOR SIGNATURE On 2022 By Marija Ziegler School Counsellor II. [employer] SENDING CMN: JOSH SIGNED AND DATED CMN, FAXED TO [employer] & CONFIRMATION PAGE RECEIVED: 03.24.23 documented in this encounterRegency Hospital Company10-19-2023 History of Present illness Narrative* Beatriz Sanchez [...] LPN In Department: RHEUMATOLOGY documented in this encounterRegency Hospital Company10-18-2023 Miscellaneous Notes* Telephone Encounter - Christie Phan MD - 03/10/2023 2:18 PM EDT Spoke with patient. We stopped her trulicity because of side effects. She only took the cymbalta for a week. She will restart and we will see how she is doing in 2 months. Have also ordered insulin labs to check for insulin resistance. documented in this [facility]10-09-2023 Miscellaneous Notes* Telephone Encounter - Lynne Ni MD - 03/01/2023 3:27 PM EDT For chart: Eye exam 02/26/23 no ocular complication related to medication. * Telephone Encounter - Beatriz Sanchez LPN - 03/01/2023 2:38 PM EDT [facility] exam from [facility] Placed on your desk for review. documented in this [facility]09-29-2023 Nurse Note* Radha Kebede MA - 02/19/2023 11:48 AM EDT Patient Identification confirmed: yes. Injection given and documented on JUL per provider order. Radha Schofield MA documented in this [facility]09-29-2023 Instructions* Patient Instructions* Vera Najera MD - 02/19/2023 11:40 AM EDT B12 shot today and every 4 weeks. Continue Folic acid. Follow up in 8 Weeks - labs 1 week before. documented in this [facility]09-29-2023 History of Present illness Narrative* Vera Najera MD - 02/19/2023 11:32 AM EDT Images from the original note were not included. AMBULATORY TELEPHONE VISIT Ariadna Haley has consented to this telephone encounter. Persons Present: Patient and myself Chief Complaint/Reason: Anemia; To review recent blood work. HPI: Total Time Spent: 21 minutes Rebekah Rojas APRN.BIRD SITTER NAME: Ariadna Haley CLINIC NO.: [id number] DATE OF SERVICE: February 19, 2023 ([place]) [...] lower lip done 2 days ago at [facility] - awaiting results. B12 helps especially [...] injections. Shefollows with multiple doctors including and transport pilot, ware tester, sales coordinator and PCP. She has been told they [...] which included preparing to see the patient, xvae-ai-oszj patient care, completing clinical documentation, performing a medically appropriate examination, counseling and educating the patient/family/caregiver, ordering medications, tests, or p rocedures, and independently interpreting results (not separately reported). Vera Najera MD, CPE Hematology and Oncology Services Provided at: [place], [place] CC: Manuel Ferris MD [address] [facility] [address] documented in this encounterRegency Hospital Company09-26-2023 Miscellaneous Notes* Telephone Encounter - Lynne Ni [...] INJECTION TEACHING 03/11/2023 7:[address] [facility] NICKIE VIDEO SPEC EST 08/12/2023 9:00 AM [facility] NICKIE Last Ophthalmology Check for Plaquenil (Hydroxychloroquine) [...] diagnoses: Vitamin D deficiency documented in this encounterRegency Hospital Company09-18-2023 Miscellaneous Notes* Telephone Encounter - Mirela Carlos - 02/08/2023 11:12 AM EDT Spoke with patient Will get labs done when she does labs in Dec for [place]/Onc Mailed orders for DXA to pt so she can go to [facility] Pre cert Benlyst Scheduled Teaching visit [...] density (1st time) patient requests order for [place] Please schedule follow up office visit for [...] accordingly. Lynne Ni MD documented in this encounterRegency Hospital Company09-14-2023 History of Present illness Narrative* Carlene Rendon - 02/04/2023 9:31 AM EDT [facility](s) for Benlysta from Dr. Ni. Benefits investigation was conducted, indicating that a prior authorization is required by patients plan with [facility]. Encounter will be updated once [facility] Carlene Rendon [facility], Inflammatory P: [phone] F: [phone] documented in this encounterRegency Hospital Company09-14-2023 History of Present illness Narrative* Lynne Ni [...] visit. Either the patient or their legal termite control representative has been informed of the [...] for POTs, avoid aggravating triggers, termite control representative pain recommendations per primary care provider/pain [...] Due for eye exam. Labs sent to [place]/completed in 06/2021 (no results faxed to office, but patient pulled up results on her phone). Chronic current pain in neck, flank area, mid back, knees, legs, arms, all over pain. Better with lyrica 75mg 3times a day. Reports pain 4-12/31. Couple hrs AM stiffness. COVID vaccine [employer] 09/28/20, 10/19/20, 05/26/21. Feels safe at home. [...] COVID-19 original vaccine, age 12+ yr, monovalent ([employer] - PURPLE TOP) 09/28/2020 10/19/2020 05/26/2021 COVID-19 vaccine, age 12+ yr, bivalent (Talent [employer] Experience) 02/08/2022 Pneumovax no Flu shot no Tetanus [...] cbc, cmp, negative hla b27; Outside [place] 06/2021 low vitamin D 16, vitamin b12-307;high [...] consider osteoporosis treatment if on termite control representative steroids/abnormal bmd, take vitamin D script [...] for POTs, avoid aggravating triggers, termite control representative pain recommendations per primary care provider/pain clinic/patient currently declined cymbalta/lyrica, see ortho, prn brace, start fall precautions, answered all questions and concerns, patient voiced understanding. RECOMMENDATION/PLAN: [facility] on 02/04/23 DXA-AXIAL SKELETON DXA-FOREARM SKELETON Reviewed labs/tests with patient Provided printed info 02/04/23 precert for benlysta 02/04/23 check nonfasting labs every 3months 02/04/23 SLAQ 24;Modified 02/04/23 KRISTEN 0, pain 60%;06/15/22 KRISTEN 0, pain60%;10/24/21 KIRSTEN 0, pain 40-80%;March 05, 2021 KRISTEN 0, [...] (200mg) daily with a meal Please see java engineer every 6-12months while on Hydroxychloroquine. Start [...] touching your toes, sit-ups, using row machine longterm pain recommendations per primary care provider/pain clinic [...] video & audio (virtual) or phone or smip-yt-defm patient care, completing clinical documentation, obtaining and/or [...] De La Torre CNP;Dr.Douglas Sai Ferris MD [facility] AMBULATORY VISIT INTAKE QUESTIONNAIRE Question 02/02/2023 10:32 [...] Workers' Compensation? No Do you need an air traffic systems technician? No [facility] MUMTAZHART ZOOM MESSAGE Question 02/02/2023 10:32 PM EDT [...] of Right Forearm or Lower Left Leg. [facility] PROMIS 10 ADULT SHORT FORM V1.0 GLOBAL [...] < or = 5) documented in this encounterRegency Hospital Company09-14-2023 Instructions* Patient Instructions* Lynne Ni MD - [...] (200mg) daily with a meal Please see java engineer every 6-12months while on Hydroxychloroquine. azathioprine [...] touching your toes, sit-ups, using row machine longterm pain recommendations per primary care provider/pain clinic [...] your usual activities immediately. documented in this encounterRegency Hospital Company09-05-2023 Miscellaneous Notes* Telephone Encounter - Maynor Bryson MA - 01/26/2023 7:46 AM EDT patient has viewed the [employer] message per [employer]. * Telephone Encounter - Lynne Ni MD [...] accordingly. Lynne Ni MD documented in this encounterRegency Hospital Company09-01-2023 Nurse Note* Radha Kebede MA - 01/22/2023 12:17 PM EDT Patient Identification confirmed: yes. Injection given and documented on JUL per provider order. Radha Schofield MA documented in this encounterRegency Hospital Company08-22-2023 Miscellaneous Notes* Telephone Encounter - Christie Phan [...] the above prescription(s) to electronically send to [facility] pharmacy. Milagro Mendiola MA documented in this encounterRegency Hospital Company08-11-2023 History of Present illness Narrative* Misty Nelson MD - 01/01/2023 10:51 AM EDT VIRTUAL VISIT PROGRESS NOTE This is a virtual visit using [employer] video visit. It required patient-provider interaction for themedical decision making as documented below. I have communicated my name and active licensure. The patient's identity and physical location wereverified at the time of this visit. Either the patient or their legal termite control representative has been informed of the [...] otitis or sinusitis No pneumonia She sees ware tester and was diagnosed with lupus She is on Plaquenil, azathioprine Prednisone 10mg once daily for the past year; every few months she gets treated with higher doses of prednisone for flares of her symptoms The medications seem to help the body aches She saw the lacquer sprayer Treated with B12 and folic acid We [...] visit. Misty Nelson MD documented in this encounterRegency Hospital Company07-28-2023 Miscellaneous Notes* Telephone Encounter - Rebekah Rojas APRN.BIRD SITTER - 12/18/2022 10:48 AM EDT Spoke with patient this morning, 12/18/2022. Rebekah Rojas APRN.TRUE * Telephone Encounter - Lidia Argueta RN - 12/18/2022 9:31 AM EDT Pt called air transport professionals service last evening stating she was suppose to have a phone call with Rebekah at 330 and never received a call. Pt is still waiting (536 pm 12/17/22). Please advise Lidia Argueta RN documented in this encounterRegency Hospital Company07-28-2023 History of Present illness Narrative* Rebekah Rojas APRN.CNP - 12/18/2022 9:07 AM EDT Images from the original note were not included. AMBULATORY TELEPHONE VISIT Ariadna Melissa Haley has consented to this telephone [...] Total Time Spent: 21 minutes Rebekah Rojas APRN.BIRD SITTER NAME: Ariadna Haley CLINIC NO.: [id number] DATE OF SERVICE: October 22, 2022 ([place]) [...] lower lip done 2 days ago at [facility] - awaiting results. B12 helps especially [...] injections. Shefollows with multiple doctors including and transport pilot, ware tester, sales coordinator and PCP. She has been told they [...] which included preparing to see the patient, czkb-ue-dcfx patient care, completing clinical documentation, performing a medically appropriate examination, counseling and educating the patient/family/caregiver, ordering medications, tests, or p rocedures, and independently interpreting results (not separately reported). Vera Najera MD, CPE Hematology and Oncology Services Provided at: [place], [place] CC: Manuel Ferris MD [address] [facility] [address] documented in this encounterRegency Hospital Company07-26-2023 Miscellaneous Notes* Telephone Encounter - Pamella Bettencourt RN - 12/16/2022 1:14 PM EDT Pt notified and verbalizes understanding. Clerical: Please change tomorrow's appointment to a phone visit at the end of Rebekah's day. Preferred number is [phone]. In addition, pt will be in next [...] schedule? Pamella Bettencourt RN documented in this encounterRegency Hospital Company07-23-2023 Miscellaneous Notes* Telephone Encounter - Vera Najera [...] advise Enma Hamm RN documented in this encounterRegency Hospital Company07-04-2023 Miscellaneous Notes* Telephone Encounter - Lynne Ni [...] accordingly. Lynne Ni MD documented in this encounterRegency Hospital Company06-29-2023 Nurse Note* Margret Cuenca - 11/19/2022 11:01 AM EDT Patient Identification confirmed: yes. Injection given and documented on JUL per provider order. Margret Cuenca documented in this [facility]06-01-2023 Nurse Note* Stacy Gutiérrez Ma - 10/22/2022 11:50 AM EDT Patient Identification confirmed: yes. Injection given and documented on JUL per provider order. Stacy Gutiérrez Ma documented in this [facility]06-01-2023 Instructions* Patient Instructions* Vera Najera MD - 10/22/2022 11:43 AM EDT B12 Shot today and every 4 weeks. Continue Folic acid. Follow up in 8 Weeks - labs 1 week before. documented in this [facility]06-01-2023 History of Present illness Narrative* Vera Najera MD - 10/22/2022 11:35 AM EDT Images from the original note were not included. NAME: Ariadna Haley CLINIC NO.: [id number] DATE OF SERVICE: October 22, 2022 (Marquis) [...] lower lip done 2 days ago at [facility] - awaiting results. B12 helps especially [...] injections. Shefollows with multiple doctors including and transport pilot, ware tester, sales coordinator and PCP. She has been told they [...] which included preparing to see the patient, fpod-cs-newk patient care, completing clinical documentation, performing a medically appropriate examination, counseling and educating the patient/family/caregiver, ordering medications, tests, or p rocedures, and independently interpreting results (not separately reported). Vera Najera MD, CPE Hematology and Oncology Services Provided at: [place], [place] CC: Manuel Ferris MD [address] [facility] [address] documented in this encounterRegency Hospital Company05-04-2023 Nurse Note* Stacy Gutiérrez Ma - 09/24/2022 10:22 AM EDT Patient Identification confirmed: yes. Injection given and documented on JUL per provider order. Stacy Gutiérrez Ma documented in this encounterRegency Hospital Company04-18-2023 Miscellaneous Notes* Telephone Encounter - Stacy Hernandez - 09/08/2022 2:27 PM EDT Pharmacy-Reviewed Medication History Patient Name:Jim Haley : 1980 Patient Contact Attempt: First attempt Adherence Packing Program Accepted? No, patient does not wish to participate. Patient is not eligible for adherence packaging because PCP is not within [facility]. Patient wishes to continue at [facility] since medication bottles will look the same and then she can pick-up the medications when she needs them. Stacy Hernandez September 08, 2022 2:28 PM [facility] [phone] documented in this encounterRegency Hospital Company04-17-2023 History of Present illness Narrative* Christie Pahn MD - 09/07/2022 2:00 PM EDT Images from the original note were not included. [facility] Virtual Follow-Up [...] which included preparing to see the patient, kukn-hx-zsyy patient care, completing clinical documentation, performing a medically appropriate examination, counseling and educating the patient/family/caregiver, ordering medications, tests, or p rocedures, and communicating with other HCPs (not separately reported). I have communicated my name and active licensure. The patient's identity and physical location wereverified at the time of this visit. Either the patient or their legal termite control representative has been informed of the risks and benefits of -- and alternatives to -- treatment through a remote evaluation andconsents to proceed with the evaluation remotely. Christie Phan MD, MA, [facility] Lifestyle Medicine Specialist documented in this encounterRegency Hospital Company04-17-2023 Nurse Note* Milagro Mendiola MA - 09/07/2022 2:00 PM EDT Called pt to do intake for video visit pt unavailable lft vm msg sent my chart. Milagro Mendiola MA documented in this [facility]04-10-2023 Miscellaneous Notes* Telephone Encounter - Shantel Higgins MA - 08/31/2022 8:38 AM EDT called [facility] pharmacy - pharmacy had 1 refill remaining no action needed from our office documented in this [facility]04-06-2023 Nurse Note* Stacy Gutiérrez Ma - 08/27/2022 10:31 AM EDT Patient Identification confirmed: yes. Injection given and documented on JUL per provider order. Stacy Gutiérrez Ma documented in [place] encounterRussell [place] [address]-06-2023 History of Present illness Narrative* Rebekah Rojas APRN.TRUE - 08/27/2022 10:00 AM EDT Images from the original note were not included. NAME: TeraAriadna [facility] NO.: [id number] DATE OF SERVICE: August 27, 2022 (Bob) [...] injections. Shefollows with multiple doctors including and transport pilot, ware tester, sales coordinator and PCP. She has been told they [...] stomach other (Crohn's [Other]) Mother Rebekah Rojas APRN.TRUE Hematology and Oncology Services Provided at: [place], [place] CC: Manuel Ferris MD [address] [facility] [address] I spent a total of 30 minutes on the date of the service which included preparing to see the patient, ehci-wm-ffrn patient care, completing clinical documentation, obtaining and/or reviewing separately obtained history, performing a medically appropriate examination, counseling and educating the pat ient/family/caregiver, ordering medications, tests, or procedures, independently interpreting results (not separately reported), and communicating results to the patient/family/caregiver. documented in this encounterRegency Hospital Company03-29-2023 Miscellaneous Notes* Telephone Encounter - Freda Noland [...] low vitamin b12- take over the counter 0118-7508 mcg daily. Improved/ normal rest of rheum [...] accordingly. Lynne Ni MD documented in this encounterRegency Hospital Company03-28-2023 Miscellaneous Notes* Telephone Encounter - Beatriz Sanchez [...] accordingly. Lynne Ni MD documented in this encounterRegency Hospital Company03-20-2023 Miscellaneous Notes* Telephone Encounter - Christie Phan MD - 08/10/2022 9:46 AM EDT [facility] requesting refill, patient never started according to the chart and I have not seen her in follow-up. * Telephone Encounter - Jami Everett Cma - 08/10/2022 7:40 AM EDT [facility] Pharmacy request for the following refill(s): Requested Prescriptions Pending Prescriptions Disp Refills DULoxetine (CYMBALTA) 20 mg capsule [Pharmacy Med Name: DULOXETINE HCL DR 20 MG CAP] 30 capsule 2 Sig: TAKE 1 CAPSULE BY MOUTH ONCE DAILY Please review and advise. Jami Everett Cma documented in this encounterRegency Hospital Company03-06-2023 Instructions* Patient Instructions* Lexus Heck APRN.TRUE - [...] treatment, there are resources available at the [facility] such as a nutrition consultation or referral to weight management programs at our [facility] [place]. Please let us know if we can [...] the central scheduling system for the [facility] [place] at [phone]. [facility] now offers direct scheduling for patients to schedule appointments. Virtual visits are also available. If not covered by your insurance, there is a 35% discount. Please contact your insurance to determine coverage. Call the office at [phone], option #5 for questions. documented in this encounterRegency Hospital Company03-06-2023 History of Present illness Narrative* Lexus Heck APRN.CNP - 07/27/2022 10:30 AM EST Images from the original note were not included. [facility] Virtual Visit Follow up/ [...] will have a prescription sent to a [employer] company - [employer] who will be calling you in the next 1-2 weeks or so. Please call them directly or us if you do not hear from them in this time frame. - Will request formal mask fitting - You should be eligible for new supplies approximately every 3-6 months, depending on your insurance coverage. - If your mask doesn't fit well, call the [employer] company before 30 days are up to [...] now to ensure the besttime for you. [facility] on 04/13/22 CONSULT TO SLEEP MEDICINE - ADULT CPAP/BIPAP/OTHER PAP THERAPY ORDER Lawanda Miranda MD Interval history : Here for follow up for sleep apnea management. SLEEP APNEA Sleep apnea type : JOSE RAFAEL Most Recent Apnea-Hypopnea Index (AHI): 5.3 Treatment : PAP therapy DME: Josh MOJICA fax: [phone] DME ph: [phone] PAP History: Current PAP settin-15 cm H2O. [...] or near accidents due to drowsy drivin [place] Sleepiness Scale 04/12/2022 07/23/2022 Score 4 (No [...] medications, tests, or procedures. documented in this encounterRegency Hospital Company03-03-2023 Miscellaneous Notes* Telephone Encounter - Kyara Basurto [...] complete patient specific tasks. documented in this encounterRegency Hospital Company03-01-2023 Miscellaneous Notes* Telephone Encounter - Gem Mercedes RN - 07/22/2022 2:37 PM EST [employer] message sent documented in this [facility]12-28-2022 History of Present illness Narrative* Kenzie Shannon - 05/20/2022 2:28 PM EST Patient Identification confirmed: yes. Injection given and documented on JUL per provider order. Kenzie Shannon documented in this [facility]12-28-2022 Miscellaneous Notes* Addendum Note - Vera Najera MD - 05/20/2022 2:27 PM ESTAddended by: VERA NAJERA on: 05/20/2022 02:27 PM Modules accepted: Orders documented in this [facility]12-28-2022 Instructions* Patient Instructions* Vera Najera MD - 05/20/2022 2:23 PM EST B12 Shot Today and every 4 weeks Get fit for CPAP mask and setting this 05/28/2021 Continue Folic acid. RTC in 8 Weeks - labs 1 week before. documented in this [facility]12-28-2022 History of Present illness Narrative* Vera Najera MD - 05/20/2022 1:30 PM EST Images from the original note were not included. NAME: Ariadna Haley CLINIC NO.: [id number] DATE OF SERVICE: May 20, 2022 (Marquis) [...] decreasing. Initial Visit, March 04, 2022: Arianda Torres Jose Carlosfrancisco javier presents today Hematology [...] which included preparing to see the patient, lmpc-hu-qlhs patient care, completing clinical documentation, performing a medically appropriate examination, counseling and educating the patient/family/caregiver, ordering medications, tests, or p rocedures, and independently interpreting results (not separately reported). Vera Najera MD, [facility] Hematology and Oncology Services Provided at: [place], [place] CC: Vera Najera [address] [place] [address] Dr [facility] [facility] Manuel Ferris MD, [address] [facility] [address] CC: Manuel Ferris MD [address] [facility] [address] documented in this encounterRegency Hospital Company12-13-2022 Miscellaneous Notes* Telephone Encounter - Gem Mercedes RN - 05/05/2022 2:39 PM EST Faxed order, office notes, demographics, and sleep study to: DME name: Josh Seo DME fax: [phone] DME ph: [phone] Confirmation received. documented in this encounterRegency Hospital Company12-13-2022 Miscellaneous Notes* Telephone Encounter - Gem Mercedes RN - 05/05/2022 12:00 PM EST [employer] message sent documented in this encounterRegency Hospital Company12-13-2022 Miscellaneous Notes* Telephone Encounter - ANALILIA Monterroso - 05/05/2022 11:36 AM EST [facility] received your PAP order. Due to a major [employer] recall and manufacturing shortage, we are unable to fulfill the request to provide your patient with a CPAP/BIPAP machine at this time. We will keep the request on file and provide when inventory is available or you can forward the order to another DME provider such as [employer], [employer] or [employer]. Caring for our patients is our top priority and we apologize for this delay. Thank you for your patience during this time. [phone] #1 documented in this encounterRegency Hospital Company12-02-2022 Miscellaneous Notes* Telephone Encounter - Ny Lance [...] doctor has noted concern for EDS. Her ware tester has told her that she has Lupus. Based on her history, I noted we can offer in-person evaluations for herself and/or her son to see if any genetic testing may be useful. I validated and provided support on the difficulty with her ambulation and transport concerns. [facility] and only available at [facility]. I offered social work and/or transport assistance for the visit. She declined this and will discuss with her regarding the transport. She verbalized understanding the reasons for in-person evaluation recommended. She has the [facility] line and will call to reschedule for an in-person evaluation at [facility]. Ny Lance MD Plain Clothes Police Officer, Associate Staff [facility] documented in this encounterRegency Hospital Company11-30-2022 Miscellaneous Notes* Telephone Encounter - Eliza Licea [...] copy of the report. Confirmed patient's email [email or web address] Eliza Licea Genetic Counselor Temperer documented in this encounterRegency Hospital Company11-08-2022 Miscellaneous Notes* Telephone Encounter - Renate [place] MA - 03/31/2022 2:34 PM EST [facility] pharmacy electronically requests the following refill(s) Requested Prescriptions Pending Prescriptions Disp Refills DULoxetine (CYMBALTA) 20 mg capsule [Pharmacy Med Name: DULOXETINE HCL DR 20 MG CAP] 30 capsule 2 Sig: TAKE 1 CAPSULE BY MOUTH ONCE DAILY Renate [place] MA documented in this encounterRegency Hospital Company11-07-2022 Miscellaneous Notes* Telephone Encounter - Maria Eugenia Sheehan LPN - 03/30/2022 11:53 AM EST [facility] and sent MyChart regarding Dr. Nelson's [...] Thanks. Misty Nelson MD documented in this [facility]11-07-2022 Miscellaneous Notes* Telephone Encounter - Maria Eugenia Sheehan LPN - 03/30/2022 11:49 AM EST [facility] and sent [employer] regarding Dr. Nelson's directive. documented in this [facility]10-26-2022 Instructions* Patient Instructions* Vera Najera MD - 03/18/2022 11:16 AM EDT Referral for sleep study pending Start on Folic acid. RTC in 8 Weeks - labs 1 week before. documented in this encounterRegency Hospital Company10-26-2022 History of Present illness Narrative* Vera Najera MD - 03/18/2022 10:45 AM EDT Images from the original note were not included. NAME: Ariadna Haley CLINIC NO.: [id number] DATE OF SERVICE: March 18, 2022 (Marquis) Some elements in this clinic note that are critical to medical decision making have been carefully reviewed and included from a prior clinic note dated: March 04, 2022 (Abhyankar) Referring Provider: Manuel Ferris Additional Clinicians involved [...] which included preparing to see the patient, gtpv-wy-kxru patient care, completing clinical documentation, performing a medically appropriate examination, counseling and educating the patient/family/caregiver, ordering medications, tests, or p rocedures, and independently interpreting results (not separately reported). Vera Najera MD, CPE Hematology and Oncology Services Provided at: [place], [place] CC: Manuel Ferris MD [address] [place] [address] documented in this encounterRegency Hospital Company10-18-2022 History of Present illness Narrative* Misty Nelson MD - 03/10/2022 2:14 PM EDT VIRTUAL VISIT PROGRESS NOTE This is a virtual visit using [employer] video visit. It required patient-provider interaction for [...] periodic She was treated with plaquenil and lygrayson Lyrica did help the burning pain that [...] the HR increases again She sees a sliding joint maker in [place] PCP is running the Holter and echo [...] was not pursued yet Lives in [place] She did have LN biopsy in the [...] visit. Misty Nelson MD documented in this encounterRegency Hospital Company10-17-2022 History of Past illness Narrative* ProblemNoted DateDiagnosed DateResolved DateObesity, Class II, BMI 35-39.910//Obesity (BMI 30-39.9)documented as of this encounter (statuses as of 03/10/2023) [facility]-17-[facility] History of Past illness Narrative* ProblemNoted Date Diagnosed DateResolved DateObesity, Class II, BMI 35-39.910// Obesity (BMI 30-39.9)documented as of this encounter (statuses as of 03/11/2023) [facility]-17-[facility] History of Past illness Narrative* ProblemNoted Date Diagnosed DateResolved DateObesity, Class II, BMI 35-39.910// Obesity (BMI 30-39.9)documented as of this encounter (statuses as of 03/19/2023) [facility] History of Past illness Narrative* ProblemNoted Date Diagnosed DateResolved DateObesity, Class II, BMI 35-39.910// Obesity (BMI 30-39.9)documented as of this encounter (statuses as of 03/24/2023) [address]17-2022 History of Past illness Narrative* ProblemNoted Date Diagnosed DateResolved DateObesity, Class II, BMI 35-39.910// Obesity (BMI 30-39.9)documented as of this encounter (statuses as of 04/16/2023) [address]17-2022 History of Past illness Narrative* ProblemNoted Date Diagnosed DateResolved DateObesity, Class II, BMI 35-39.910// Obesity (BMI 30-39.9)documented as of this encounter (statuses as of 04/23/2023) [facility] History of Past illness Narrative* ProblemNoted Date Diagnosed DateResolved DateObesity, Class II, BMI 35-39.910// Obesity (BMI 30-39.9)documented as of this encounter (statuses as of 04/27/2023) [address]17-2022 History of Past illness Narrative* ProblemNoted Date Diagnosed DateResolved DateObesity, Class II, BMI 35-39.910// Obesity (BMI 30-39.9)documented as of this encounter (statuses as of 04/27/2023) [address]17-2022 History of Past illness Narrative* ProblemNoted Date Diagnosed DateResolved DateObesity, Class II, BMI 35-39.910// Obesity (BMI 30-39.9)documented as of this encounter (statuses as of 05/31/2023) [address]17-2022 History of Past illness Narrative* ProblemNoted Date Diagnosed DateResolved DateObesity, Class II, BMI 35-39.910// Obesity (BMI 30-39.9)documented as of this encounter (statuses as of 07/13/2023) [address]17-2022 History of Past illness Narrative* ProblemNoted Date Diagnosed DateResolved DateObesity, Class II, BMI 35-39.910// Obesity (BMI 30-39.9)documented as of this encounter (statuses as of 07/13/2023) [address]17-2022 History of Past illness Narrative* ProblemNoted Date Diagnosed DateResolved DateObesity, Class II, BMI 35-39.910/ Obesity (BMI 30-39.9)documented as of this encounter (statuses as of 08/05/2023) [address]17-2022 History of Past illness Narrative* ProblemNoted Date Diagnosed DateResolved DateObesity, Class II, BMI 35-39.910// Obesity (BMI 30-39.9)documented as of this encounter (statuses as of 08/12/2023) [address]17-2022 History of Past illness Narrative* ProblemNoted Date Diagnosed DateResolved DateObesity, Class II, BMI 35-39.910/ Obesity (BMI 30-39.9)documented as of this encounter (statuses as of 09/01/2023) [address]17-2022 History of Past illness Narrative* ProblemNoted Date Diagnosed DateResolved DateObesity, Class II, BMI 35-39.910/ Obesity (BMI 30-39.9)documented as of this encounter (statuses as of 09/06/2023) [address]17-2022 History of Past illness Narrative* ProblemNoted Date Diagnosed DateResolved DateObesity, Class II, BMI 35-39.9121 Obesity (BMI 30-39.9)/documented as of this encounter (statuses as of 09/11/2023) [facility]10-17-[facility] Instructions* Patient Instructions* Christie Phan MD - 03/09/2022 12:47 PM EDT Check EKG for prolonged QT. If normal, I would try going back on the Lexapro, can recheck an EKG inabout a month to make sure that things are going ok. (I'm leaving this, but we are changing to Cymbalta) Tilt Table Test [email or web address] documented in this encounterRegency Hospital Company10-17-2022 History of Present illness Narrative* Christie Phan MD - 03/09/2022 12:08 PM EDT Images from the original note were not included. [facility] Virtual Initial [...] ago Has never really been a great nitroglycerin distributor [place] to walk [...] is measured by staff High risk of JOES RAFAEL: answering yes to three or more [...] the date of the service which included wpci-qk-qsbg patient care and counseling and educating the patient/family/caregiver. documented in this encounterRegency Hospital Company10-14-2022 Miscellaneous Notes* Telephone Encounter - Krista Braswell MA - 03/06/2022 7:08 AM EDT Pt was notified via . * Telephone Encounter - yLnne Ni MD - 03/05/2022 5:56 PM EDT Please Call patient if MyChart note not read to review results/released to My Chart if tests completed at [facility]: Mildly high vitamin b12- decrease over the [...] accordingly. Lynne Ni MD documented in this encounterRegency Hospital Company10-12-2022 Instructions* Patient Instructions* Vera Najera MD - 03/04/2022 11:42 AM EDT Labs today. Referral for sleep study. RTC in 2 weeks. Consider immunology referral. Referral to lifestyle medicine documented in this encounterRegency Hospital Company10-12-2022 History of Present illness Narrative* Vera Najera MD - 03/04/2022 11:19 AM EDT Images from the original note were not included. NAME: Ariadna Haley [facility] NO.: [id number] DATE OF SERVICE: March 04, 2022 Referring [...] which included preparing to see the patient, ybvf-fn-gorg patient care, completing clinical documentation, obtaining and/or reviewing separately obtained history, performing a medically appropriate examination, counseling and educating the pat ient/family/caregiver, ordering medications, tests, or procedures, and independently interpreting results (not separately reported). Vera Najera MD, CPE Hematology and Oncology Services Provided at: [place], [place] CC: Manuel Ferris MD [address] [place] [address] Manuel Ferris MD, MD [address] [place], [place] [id number] documented in this encounterRegency Hospital Company2022 History of Present illness Narrative* Alhaji Victoria, - 02/24/2022 6:00 PM EDT VIRTUAL VISIT PROGRESS NOTE This is a virtual visit using [employer] video visit. 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 Most of her travel is [...] DO February 24, 2022 documented in this encounterRegency Hospital Company07-06-2022 Evaluation note* Encounter Date Diagnosis Assessment Notes [...] see rheumatology and is on hydroxychloroquine. Her ware tester is Dr. Ni. Dr. Ni and I [...] (ICD-10 - R00.0) Nov,[place]ushing (ICD-10 - R23.2) [employer] Other 06-03-2022 Nurse Note* Lynne Ni MD - 10/24/2021 8:32 AM EDT See progress note documented in this encounterRegency Hospital Company06-03-2022 History of Present illness Narrative* Lynne Ni [...] Due for eye exam. Labs sent to [place]/completed in 06/2021 (no results faxed to office, [...] Date(s) Administered COVID-19 vaccine, age 12+ yr ([employer] - PURPLE TOP) 09/28/2020 10/19/2020 Pneumovax no [...] tests reviewed for today's visit: Outside [place] 06/2021 low vitamin D 16, vitamin b12-307;high [...] Due for eye exam. Labs sent to [place]/completed in 06/2021 (no results faxed to office, [...] (200mg) daily with a meal Please see java engineer every 6-12months while on Hydroxychloroquine. Recommend [...] toes, sit-ups, using row machine termite control representative pain recommendations per primary care provider/pain [...] video & audio (virtual) or phone or [id number] patient care, completing clinical documentation, obtaining and/or [...] medical records. cc Gay De La Torre CNP Answers for HPI/ROS [...] With SOME difficulty Bend down to picker tender clothing from the floor? With SOME difficulty [...] my health Strongly Agree [facility]* Patient Instructions* Lynne Ni MD - [...] (200mg) daily with a meal Please see java engineer every 6-12months while on Hydroxychloroquine. Recommend [...] touching your toes, sit-ups, using row machine longterm pain recommendations per primary care provider/pain clinic Thank you. [facility]* Encounter Date Diagnosis Assessment Notes [...] the hydroxychloroquine without any significant lupus diagnosis Iwill defer that to her ware tester. September,Tachycardia (ICD-10 - R00.0) September,Flushing (ICD-10 - R23.2) [facility] Other 04-28-2022 Evaluation note* Encounter Date Diagnosis Assessment Notes Treatment Notes Treatment Clinical Notes Aug, Elevated sed rate (ICD-10 - R70. 0) [facility] Other 04-21-2022 Evaluation note* Encounter Date Diagnosis [...] lupus diagnosis Iwarabella defer that to her ware tester. [facility] Other 05-17-2021 Hospital Discharge instructions* Instructions* So [...] be sent through Care Everywhere. * amlodipine (Macedonian) * nitroglycerin (oral/sublingual) (Macedonian) [facility]: [phone] 166-552705-17-2021 History of Present illness Narrative* So [place] [...] needs to be completed. [facility] Phone: [phone] History of Past illness Narrative* Problem Noted DateResolved DateObesity (BMI 30-39.9)documented as of this encounter (statuses as of 10/24/2021) [facility] Narr[facility]* ProblemNoted Date Resolved DateObesity (BMI 30-39.9)documented as of this encounter (statuses as of 02/25/2022) [facility] Narrative* ProblemNoted Date Resolved DateObesity (BMI 30-39.9)documented as of this encounter (statuses as of 03/02/2022) [facility] Narrative* ProblemNoted Date Resolved DateObesity (BMI 30-39.9)documented as of this encounter (statuses as of 03/04/2022) [facility] Narrative* ProblemNoted Date Resolved DateObesity (BMI 30-39.9)documented as of this encounter (statuses as of 03/05/2022) [facility] Narrative* ProblemNoted Date Resolved DateObesity (BMI 30-39.9)documented as of this encounter (statuses as of 03/06/2022) [facility] Narrative* ProblemNoted Date Resolved DateObesity (BMI 30-39.9)documented as of this encounter (statuses as of 03/09/2022) [facility] Narrative* ProblemNoted Date Resolved DateObesity (BMI 30-39.9)documented as of this encounter (statuses as of 03/10/2022) [facility] Narrative* ProblemNoted Date Resolved DateObesity (BMI 30-39.9)documented as of this encounter (statuses as of 03/10/2022) [facility] Narrative* ProblemNoted Date Resolved DateObesity (BMI 30-39.9)documented as of this encounter (statuses as of 03/12/2022) [facility] Narrative* ProblemNoted Date Resolved DateObesity (BMI 30-39.9)documented as of this encounter (statuses as of 03/18/2022) [facility] Narrative* ProblemNoted Date Resolved DateObesity (BMI 30-39.9)documented as of this encounter (statuses as of 03/22/2022) [address]08-2015 History of Past illness Narrative* ProblemNoted Date Resolved DateObesity (BMI 30-39.9)documented as of this encounter (statuses as of 03/30/2022) [facility] Narrative* ProblemNoted Date Resolved DateObesity (BMI 30-39.9)documented as of this encounter (statuses as of 03/30/2022) [address]08[address]2015 History of Past illness Narrative* ProblemNoted Date Resolved DateObesity (BMI 30-39.9)documented as of this encounter (statuses as of 04/03/2022) [facility] Narrative* ProblemNoted Date Resolved DateObesity (BMI 30-39.9)documented as of this encounter (statuses as of 04/03/2022) [facility] Narrative* ProblemNoted Date Resolved DateObesity (BMI 30-39.9)documented as of this encounter (statuses as of 04/22/2022) [facility] Narrative* ProblemNoted Date Resolved DateObesity (BMI 30-39.9)documented as of this encounter (statuses as of 04/24/2022) [facility] Narrative* ProblemNoted Date Resolved DateObesity (BMI 30-39.9)documented as of this encounter (statuses as of 05/05/2022) [facility] Narrative* ProblemNoted Date Resolved DateObesity (BMI 30-39.9)documented as of this encounter (statuses as of 05/05/2022) [facility] Narrative* ProblemNoted Date Resolved DateObesity (BMI 30-39.9)documented as of this encounter (statuses as of 05/05/2022) [facility] Narrative* ProblemNoted Date Resolved DateObesity (BMI 30-39.9)documented as of this encounter (statuses as of 05/26/2022) [facility] Narrative* ProblemNoted Date Resolved DateObesity (BMI 30-39.9)documented as of this encounter (statuses as of 05/27/2022) [facility] Narrative* ProblemNoted Date Resolved DateObesity (BMI 30-39.9)documented as of this encounter (statuses as of 07/22/2022) [facility] Narrative* ProblemNoted Date Resolved DateObesity (BMI 30-39.9)documented as of this encounter (statuses as of 07/25/2022) [facility] Narrative* ProblemNoted Date Resolved DateObesity (BMI 30-39.9)documented as of this encounter (statuses as of 07/27/2022) [facility] Narrative* ProblemNoted Date Resolved DateObesity (BMI 30-39.9)documented as of this encounter (statuses as of 07/28/2022) [facility] Narrative* ProblemNoted Date Resolved DateObesity (BMI 30-39.9)documented as of this encounter (statuses as of 08/10/2022) [facility] Narrative* ProblemNoted Date Resolved DateObesity (BMI 30-39.9)documented as of this encounter (statuses as of 08/18/2022) [facility] Narrative* ProblemNoted Date Resolved DateObesity (BMI 30-39.9)documented as of this encounter (statuses as of 08/19/2022) [facility] Narrative* ProblemNoted Date Resolved DateObesity (BMI 30-39.9)documented as of this encounter (statuses as of 08/27/2022) [facility] Narrative* ProblemNoted Date Resolved DateObesity (BMI 30-39.9)documented as of this encounter (statuses as of 08/29/2022) [facility] Narrative* ProblemNoted Date Resolved DateObesity (BMI 30-39.9)documented as of this encounter (statuses as of 08/31/2022) [facility] Narrative* ProblemNoted Date Resolved DateObesity (BMI 30-39.9)documented as of this encounter (statuses as of 09/08/2022) [address]08-2015 History of Past illness Narrative* ProblemNoted Date Resolved DateObesity (BMI 30-39.9)documented as of this encounter (statuses as of 09/08/2022) [facility] Narrative* ProblemNoted Date Resolved DateObesity (BMI 30-39.9)documented as of this encounter (statuses as of 09/24/2022) [facility] Narrative* ProblemNoted Date Resolved DateObesity (BMI 30-39.9)documented as of this encounter (statuses as of 10/22/2022) [address]08-2015 History of Past illness Narrative* ProblemNoted Date Resolved DateObesity (BMI 30-39.9)documented as of this encounter (statuses as of 10/25/2022) [facility] Narrative* ProblemNoted Date Resolved DateObesity (BMI 30-39.9)documented as of this encounter (statuses as of 11/19/2022) [address]2015 History of Past illness Narrative* ProblemNoted Date Resolved DateObesity (BMI 30-39.9)documented as of this encounter (statuses as of 11/25/2022) [facility]* ProblemNoted Date Diagnosed DateResolved DateObesity (BMI 30-39.9)documented as of this encounter (statuses as of 12/08/2022) [facility] Narrative* ProblemNoted Date Diagnosed DateResolved DateObesity (BMI 30-39.9)documented as of this encounter (statuses as of 12/18/2022) [facility] Narrative* ProblemNoted Date Diagnosed DateResolved DateObesity (BMI 30-39.9)documented as of this encounter (statuses as of 12/18/2022) [facility] Narrative* ProblemNoted Date Diagnosed DateResolved DateObesity (BMI 30-39.9)documented as of this encounter (statuses as of 12/21/2022) [facility] Narrative* ProblemNoted Date Diagnosed DateResolved DateObesity (BMI 30-39.9)documented as of this encounter (statuses as of 12/22/2022) [facility] Narrative* ProblemNoted Date Diagnosed DateResolved DateObesity (BMI 30-39.9)documented as of this encounter (statuses as of 01/02/2023) [facility]* ProblemNoted Date Diagnosed DateResolved DateObesity (BMI 30-39.9)documented as of this encounter (statuses as of 01/13/2023) [facility] Narr[facility]* ProblemNoted Date Diagnosed DateResolved DateObesity (BMI 30-39.9)documented as of this encounter (statuses as of 01/22/2023) [facility] Narrative* ProblemNoted Date Diagnosed DateResolved DateObesity (BMI 30-39.9)documented as of this encounter (statuses as of 01/26/2023) [facility] Narrative* ProblemNoted Date Diagnosed DateResolved DateObesity (BMI 30-39.9)documented as of this encounter (statuses as of 02/04/2023) [facility] Narrative* ProblemNoted Date Diagnosed DateResolved DateObesity (BMI 30-39.9)documented as of this encounter (statuses as of 02/04/2023) [facility] Narrative* ProblemNoted Date Diagnosed DateResolved DateObesity (BMI 30-39.9)documented as of this encounter (statuses as of 02/07/2023) [facility] Narrative* ProblemNoted Date Diagnosed DateResolved DateObesity (BMI 30-39.9)documented as of this encounter (statuses as of 02/08/2023) [facility] Narrative* ProblemNoted Date Diagnosed DateResolved DateObesity (BMI 30-39.9)documented as of this encounter (statuses as of 02/16/2023) [facility] Narrative* ProblemNoted Date Diagnosed DateResolved DateObesity (BMI 30-39.9)documented as of this encounter (statuses as of 02/19/2023) [address]2015 History of Past illness Narrative* ProblemNoted Date Diagnosed DateResolved DateObesity (BMI 30-39.9)documented as of this encounter (statuses as of 02/21/2023) [facility] Narrative* ProblemNoted Date Diagnosed DateResolved DateObesity (BMI 30-39.9)documented as of this encounter (statuses as of 03/02/2023) [facility] Diagnosis Other systemic lupus [...] and myositis, unspecified [facility] Diagnosis Swelling of lymph nodes- Primary Enlargement of lymph nodes Other systemic lupus erythematosus with other organ involvement (HCC) On prednisone therapy Hair loss Alopecia, unspecified Bilateral sacroiliitis (HCC) Long-term use of Plaquenil Encounter for long-term (current) use of other medications documented [facility] Diagnosis Vitamin B12 deficiency- Primary Other B-complex deficiencies Vitamin D deficiency Unspecified vitamin D deficiency Elevated sed rate Elevated sedimentation rate Elevated C-reactive protein (CRP) documented [facility] Diagnosis 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 Other vitamin B12 deficiency anemia Somnolence, daytime Hypersomnia, unspecified Snoring Other dyspnea and respiratory abnormality Chronic fatigue and malaise Chronic fatigue syndrome Obesity, unspecified classification, unspecified obesity type, unspecified whether serious comorbidity present [facility] Diagnosis Obesity, Class II, [...] nonspecific immunological findings [facility] Diagnosis Megaloblastic anemia due to vitamin B12 deficiency- Primary Other vitamin B12 deficiency anemia High total serum IgM [facility] Diagnosis Raised level of immunoglobulins- Primary Other and unspecified nonspecific immunological findings Wound healing, delayed Open wound(s) (multiple) of unspecified site(s), complicated Current smoker Tobacco use disorder [facility] Diagnosis Family history of genetic disease- Primary Family history of other condition [facility] Diagnosis High total serum IgM- Primary Elevated sed rate Elevated sedimentation rate Somnolence, daytime Hypersomnia, unspecified JOSE RAFAEL (obstructive sleep apnea) Obstructive sleep apnea (adult) (pediatric) [facility] Diagnosis Megaloblastic anemia due to vitamin B12 deficiency- Primary Other vitamin B12 deficiency anemia Elevated sed rate Elevated sedimentation rate [facility] Diagnosis Megaloblastic anemia due to vitamin B12 deficiency- Primary Other vitamin B12 deficiency anemia Elevated sed rate Elevated sedimentation rate High total serum IgM Chronic fatigue and malaise Chronic fatigue syndrome [facility] Diagnosis JOSE RAFAEL (obstructive sleep apnea)- Primary Obstructive sleep apnea (adult) (pediatric) [facility] Diagnosis Other systemic lupus erythematosus with other organ involvement (HCC)- Primary Family history of Crohn's disease Family history of other digestive disorders Fibromyalgia Mylagia and myositis, unspecified [facility] Diagnosis Other systemic lupus erythematosus with other organ involvement (HCC)- Primary Elevated LFTs Other abnormal blood chemistry Anemia of chronic disease Anemia of other chronic disease 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 Encounter for long-term (current) use of other medications [facility] Diagnosis Megaloblastic anemia due to vitamin B12 deficiency- Primary Other vitamin B12 deficiency anemia Elevated sed rate Elevated sedimentation rate [facility] Diagnosis Megaloblastic anemia due to vitamin B12 deficiency- Primary Other vitamin B12 deficiency anemia Elevated sed rate Elevated sedimentation rate High total serum IgM Chronic fatigue and malaise Chronic fatigue syndrome JOSE RAFAEL (obstructive sleep apnea) Obstructive sleep apnea (adult) (pediatric) documented [facility] Diagnosis Vitamin D deficiency Unspecified vitamin D deficiency [facility] Diagnosis Obesity, Class III, BMI >= 40- Primary Morbid obesity Polypharmacy Encounter for long-term (current) use of other medications Pre-diabetes Other abnormal glucose [facility] Diagnosis Megaloblastic anemia due to vitamin B12 deficiency- Primary Other vitamin B12 deficiency anemia Elevated sed rate Elevated sedimentation rate documented [facility] Diagnosis Megaloblastic anemia due to vitamin B12 deficiency- Primary Other vitamin B12 deficiency anemia Elevated sed rate Elevated sedimentation rate [facility] Diagnosis Megaloblastic anemia due to vitamin B12 deficiency- Primary Other vitamin B12 deficiency anemia Elevated sed rate Elevated sedimentation rate High total serum IgM Chronic fatigue and malaise Chronic fatigue syndrome Obstructive sleep apnea syndrome Obstructive sleep apnea (adult) (pediatric) [facility] Diagnosis Megaloblastic anemia due to vitamin B12 deficiency- Primary Other vitamin B12 deficiency anemia Elevated sed rate Elevated sedimentation rate documented [facility] Diagnosis Other systemic lupus erythematosus with other organ involvement (HCC) Encounter for longterm current use of azathioprine Encounter for long-term (current) use of other medications [facility] Diagnosis Megaloblastic anemia due to vitamin B12 deficiency- Primary Other vitamin B12 deficiency anemia Chronic fatigue and malaise Chronic fatigue syndrome documented [facility] Diagnosis High total serum IgM- Primary Low serum IgG for age Current smoker Tobacco use disorder documented [facility] Diagnosis Obesity, Class II, BMI 35-39.9 Obesity, unspecified Prediabetes Other abnormal glucose [facility] Diagnosis Megaloblastic anemia due [...] C-reactive protein (CRP) [facility] Diagnosis Other systemic lupus erythematosus [...] wrist pain 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, 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 Encounter for long-term (current) use of steroids Steroid-induced osteoporosis Other osteoporosis 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 [facility] Diagnosis Systemic lupus erythematosus with other organ involvement (HCC)- Primary [facility] Diagnosis Megaloblastic anemia due to vitamin B12 deficiency- Primary Other vitamin B12 deficiency anemia High total serum IgM Elevated sed rate Elevated sedimentation rate [facility] Diagnosis Other systemic lupus erythematosus with other organ involvement (HCC)- Primary [facility] Diagnosis Other systemic lupus erythematosus with other organ involvement (HCC) Encounter for longterm current use of azathioprine Encounter for long-term (current) use of other medications [facility] Diagnosis Megaloblastic anemia due to vitamin B12 deficiency- Primary Other vitamin B12 deficiency anemia Elevated sed rate Elevated sedimentation rate [facility]* Diagnosis Megaloblastic anemia due to [...] Chronic pain syndrome documented in this encounter [facility] note* Diagnosis Systemic lupus erythematosus, unspecified SLE type, unspecified organ involvement status (HCC)- Primary [facility] Diagnosis Megaloblastic anemia due [...] this encounter [facility]* Diagnosis Obesity, Class III, BMI >= 40 Morbid obesity documented [facility] this [facility]* Diagnosis Obesity, Class III, BMI >= 40- Primary Morbid obesity Other chronic pain documented in this encounter [facility] note* Diagnosis Irregular heart rate- Primary Essential hypertension Unspecified essential hypertension Autonomic dysfunction Obstructive sleep apnea syndrome Obstructive sleep apnea (adult) (pediatric) Primary hypertension Unspecified essential hypertension documented in this encounter [facility] Work Phone: Evaluation note* Diagnosis Autoimmune disease (CMS/HCC)- Primary Autoimmune disease, not elsewhere classified Autonomic dysfunction Lumbosacral radiculopathy Thoracic or lumbosacral neuritis or radiculitis, unspecified Bilateral leg weakness Muscle weakness (generalized) [facility] Diagnosis Shortness of breath- Primary Paroxysmal supraventricular tachycardia PAC (premature atrial contraction) Supraventricular premature beats Current smoker Systemic lupus erythematosus, unspecified SLE type, unspecified organ involvement status (CMS/HCC) Palpitations Obstructive sleep apnea syndrome Obstructive sleep apnea (adult) (pediatric) Morbid obesity (CMS/HCC) Morbid obesity Bilateral lower extremity edema documented in this encounter [facility] Work Phone: Evaluation note* Diagnosis Megaloblastic anemia due to vitamin B12 deficiency- Primary Other vitamin B12 deficiency anemia Elevated sed rate Elevated sedimentation rate [facility] Diagnosis Systemic lupus erythematosus with other organ involvement (HCC)- Primary [facility] Diagnosis Systemic lupus erythematosus with other organ involvement (HCC)- Primary [facility] Diagnosis Megaloblastic anemia due to vitamin B12 deficiency- Primary Other vitamin B12 deficiency anemia Elevated sed rate Elevated sedimentation rate [facility] note* Diagnosis Other systemic lupus erythematosus with other organ involvement (HCC)- Primary Vitamin D deficiency Unspecified vitamin D deficiency Elevated LFTs Other abnormal blood chemistry Anemia of chronic disease Anemia of other chronic disease Elevated sed rate Elevated sedimentation rate Elevated C-reactive protein (CRP) [facility] Diagnosis Megaloblastic anemia due to vitamin B12 deficiency- Primary Other vitamin B12 deficiency anemia Obstructive sleep apnea syndrome Obstructive sleep apnea (adult) (pediatric) Chronic fatigue and malaise Chronic fatigue syndrome High total serum IgM JOSE RAFAEL (obstructive sleep apnea) Obstructive sleep apnea (adult) (pediatric) Somnolence, daytime Hypersomnia, unspecified [facility] Diagnosis Elevated sed rate- Primary Elevated sedimentation rate Megaloblastic anemia due to vitamin B12 deficiency Other vitamin B12 deficiency anemia [facility] Diagnosis Other systemic lupus [...] medications Long-term use of high-risk 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 Encounter for long-term (current) use of steroids 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 Bilateral hand pain Pain in limb History of vitamin D deficiency Personal history of nutritional deficiency [facility] Diagnosis Elevated sed rate- Primary Elevated sedimentation rate Megaloblastic anemia due to vitamin B12 deficiency Other vitamin B12 deficiency anemia [facility] Diagnosis Other systemic lupus erythematosus with other organ involvement (HCC) 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 Encounter for long-term (current) use of other medications [facility] Diagnosis Systemic lupus erythematosus with other organ involvement (HCC)- Primary [facility] Diagnosis Vitamin B12 deficiency- Primary Other B-complex deficiencies [facility] Diagnosis Elevated sed rate- Primary Elevated sedimentation rate Megaloblastic anemia due to vitamin B12 deficiency Other vitamin B12 deficiency anemia [facility] Diagnosis Elevated sed rate- Primary Elevated sedimentation rate Megaloblastic anemia due to vitamin B12 deficiency Other vitamin B12 deficiency anemia [facility] Diagnosis Megaloblastic anemia due to vitamin B12 deficiency- Primary Other vitamin B12 deficiency anemia Elevated sed rate Elevated sedimentation rate Obstructive sleep apnea syndrome Obstructive sleep apnea (adult) (pediatric) [facility] Diagnosis Elevated LFTs- Primary Other abnormal blood chemistry Elevated C-reactive protein (CRP) Elevated sed rate Elevated sedimentation rate Vitamin D deficiency Unspecified vitamin D deficiency Screening-pulmonary TB Screening examination for pulmonary tuberculosis [facility] Diagnosis Other systemic lupus erythematosus with other organ involvement (HCC) [facility] Diagnosis Systemic lupus erythematosus with other organ involvement (HCC)- Primary [facility] Diagnosis Elevated sed rate- Primary Elevated sedimentation rate Megaloblastic anemia due to vitamin B12 deficiency Other vitamin B12 deficiency anemia [facility] Diagnosis Pseudomonas infection- Primary Pseudomonas infection in conditions classified elsewhere and of unspecified site Other systemic lupus erythematosus with other organ involvement (HCC) On prednisone therapy Long-term use of Plaquenil Encounter for long-term (current) use of other medications [facility] Diagnosis Onset Date Resolution Status Lupus acuteRecurrent Clostridioides difficile diarrheaacuteNipple discharge in female acuteRecurrent Clostridioides difficile diarrheaacuteLumbosacral spondylosis acuteOther chronic painacuteSacroiliitisacute [facility] Work Phone: Evaluation note* Diagnosis JOSE RAFAEL (obstructive sleep apnea)- Primary Obstructive sleep apnea (adult) (pediatric) Somnolence, daytime Hypersomnia, unspecified [facility] Diagnosis Systemic lupus erythematosus with other organ involvement (HCC)- Primary [facility] Diagnosis Systemic lupus erythematosus with other organ involvement (HCC)- Primary [facility]* Diagnosis Onset Date Resolution Status Nipple discharge in female acuteRecurrent Clostridioides difficile diarrheaacuteLumbosacral spondylosis acuteOther chronic painacuteSacroiliitisacute [facility] Work Phone: Evaluation note* Diagnosis Elevated sed rate- Primary Elevated sedimentation rate Megaloblastic anemia due to vitamin B12 deficiency Other vitamin B12 deficiency anemia [facility] Diagnosis Onset Date Resolution Status Nipple discharge in female acuteRecurrent Clostridioides difficile diarrheaacuteLumbosacral spondylosis acuteOther chronic painacuteSacroiliitisacuteLumbosacral spondylosisacuteOther chronic painacuteSacroiliitisacute [facility] Work Phone: Evaluation note* Diagnosis Lumbosacral radiculopathy at L5 Degenerative disc disease, lumbar Cervical radiculopathy at C5 [facility] Diagnosis Onset Date Resolution Status Lumbosacral spondylosis acuteOther chronic painacuteSacroiliitisacuteLumbosacral spondylosisacuteOther chronic painacuteSacroiliitisacute [facility] Work Phone: Evaluation note* Diagnosis Other systemic lupus erythematosus with other organ involvement (HCC) [facility] Diagnosis Other systemic lupus erythematosus with other organ involvement (HCC)- Primary Fibromyalgia Mylagia and myositis, unspecified CHRISTIAN positive Other and unspecified nonspecific immunological findings EDS (Emanuel-Danlos syndrome) Emanuel-Danlos syndrome Elevated sed rate Elevated sedimentation rate [...] erythematosus [facility]* Diagnosis Nipple discharge Other sign and symptom in breast documented in this encounter [facility]* Diagnosis Elevated sed rate- Primary Elevated sedimentation rate Megaloblastic anemia due to vitamin B12 deficiency Other vitamin B12 deficiency anemia [facility] Diagnosis Abnormal uterine bleeding (AUB) Menorrhagia with regular cycle documented in this encounter [facility]* Diagnosis Megaloblastic anemia due to vitamin B12 deficiency- Primary Other vitamin B12 deficiency anemia High total serum IgM JOSE RAFAEL (obstructive sleep apnea) Obstructive sleep apnea (adult) (pediatric) Elevated sed rate Elevated sedimentation rate Hypogammaglobulinemia (HCC) Hypogammaglobulinaemia, unspecified Frequent infections [facility] Diagnosis Oral thrush- Primary Candidiasis of mouth documented in this encounter [facility]* Diagnosis Oral thrush- Primary Candidiasis of mouth documented in this encounter [facility]* Diagnosis Systemic lupus erythematosus with other organ involvement (HCC)- Primary [facility] Diagnosis LPRD (laryngopharyngeal reflux disease)- Primary Acute laryngitis, without mention of obstruction Acute otalgia, right documented in this encounter [facility]* Diagnosis Autoimmune disease ([facility]/HCC) Autoimmune disease, not elsewhere classified Fibromyalgia Unspecified myalgia and myositis Numbness Disturbance of skin sensation documented in this encounter [facility] note* Diagnosis Lumbosacral radiculopathy at L5- Primary Degenerative disc disease, lumbar Cervical radiculopathy at C5 documented in this encounter [facility] note* Diagnosis Degenerative disc disease, lumbar- Primary Lumbosacral radiculopathy at L5 documented in this encounter [facility]* Diagnosis Frequent infections- Primary Megaloblastic anemia due to vitamin B12 deficiency Other vitamin B12 deficiency anemia Elevated sed rate Elevated sedimentation rate Hypogammaglobulinemia (HCC) Hypogammaglobulinaemia, unspecified Bilateral leg weakness Other musculoskeletal symptoms referable to limbs Discoid lupus erythematosus Lupus erythematosus [facility] Diagnosis Well woman exam with routine gynecological exam Routine gynecological examination Breast cancer screening by mammogram Breast nodule Other (abnormal) findings on radiological examination of breast [facility] Diagnosis Megaloblastic anemia due to vitamin B12 deficiency- Primary Other vitamin B12 deficiency anemia Hypogammaglobulinemia (HCC) Hypogammaglobulinaemia, unspecified Positive blood cultures Bacteremia Malaise and fatigue Other malaise and fatigue SOB (shortness of breath) Shortness of breath [facility] Diagnosis Elevated sed rate- Primary Elevated sedimentation rate Megaloblastic anemia due to vitamin B12 deficiency Other vitamin B12 deficiency anemia Hypogammaglobulinemia (HCC) Hypogammaglobulinaemia, unspecified Frequent infections Bilateral leg weakness Other musculoskeletal symptoms referable to limbs Discoid lupus erythematosus Lupus erythematosus documented [facility] this [facility]* Diagnosis Diarrhea, unspecified type- Primary Abdominal pressure Abdominal pain, unspecified site [facility] this [facility]* Diagnosis Other iron deficiency anemia- Primary [facility]* Diagnosis Other systemic lupus erythematosus with other organ involvement (HCC) documented [facility] this [facility]* Diagnosis Systemic lupus erythematosus with other organ involvement (HCC)- Primary [facility]* Diagnosis Systemic lupus erythematosus (CMS-HCC)- Primary Cold extremities Pain of lower extremity, unspecified laterality Rheumatoid arthritis, involving unspecified site, unspecified whether rheumatoid factor present ([facility]-HCC) Current smoker 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 documented in this encounter [facility]* Diagnosis Systemic lupus erythematosus (CMS-HCC)- Primary Cold extremities Pain of lower extremity, unspecified laterality Rheumatoid arthritis, involving unspecified site, unspecified whether rheumatoid factor present (CMS-HCC) Current smoker 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 Peripheral vascular disease, unspecified (CMS-HCC)- Primary Peripheral vascular disease, unspecified Cold extremities Systemic lupus erythematosus (CMS-HCC) documented in this [facility]* Diagnosis Other systemic lupus erythematosus with other organ involvement (HCC)- Primary Vitamin D deficiency Unspecified vitamin D deficiency Elevated LFTs Other abnormal blood chemistry Anemia of chronic disease Anemia of other chronic disease Elevated sed rate Elevated sedimentation rate Elevated C-reactive protein (CRP) documented [facility]* Diagnosis Onset Date Resolution Status Admit Date Lumbosacral spondylosis acuteFebruary 2024 3:16pmOther chronic painacuteFebruary 2024 3:16pm SacroiliitisacuteFebruary 2024 3:16pm [facility] Work Phone: Evaluation note* Diagnosis Elevated sed rate- Primary Elevated sedimentation rate Megaloblastic anemia due to vitamin B12 deficiency Other vitamin B12 deficiency anemia Frequent infections Hypogammaglobulinemia (HCC) Hypogammaglobulinaemia, unspecified Bilateral leg weakness Other musculoskeletal symptoms referable to limbs Discoid lupus erythematosus Lupus erythematosus [facility] Diagnosis LPRD (laryngopharyngeal reflux disease) Other diseases of larynx Dry mouth Disturbance of salivary secretion Current smoker Tobacco use disorder Abnormal mouth sensation Other and unspecified diseases of the oral soft tissues [facility]* Diagnosis Nipple discharge- Primary Other sign and symptom in breast Other systemic lupus erythematosus with other organ involvement (HCC) On prednisone therapy Long-term use of Plaquenil Encounter for long-term (current) use of other medications [facility]* Diagnosis Hidradenitis suppurativa- Primary Hidradenitis Other seborrheic dermatitis Lupus erythematosus tumidus (CMS/HCC) Rash and other nonspecific skin eruption Capillary angioma Nevus, non-neoplastic Neoplasm of uncertain behavior of skin [facility] Diagnosis Sinus tachycardia- Primary Other specified cardiac dysrhythmias Shortness of breath Paroxysmal supraventricular tachycardia (CMS-HCC) Paroxysmal supraventricular tachycardia Essential hypertension Unspecified essential hypertension Obstructive sleep apnea syndrome Obstructive sleep apnea (adult) (pediatric) Morbid obesity (Multi) Morbid obesity Current smoker documented in this encounter [facility] Work Phone: Evaluation note* Diagnosis Elevated sed rate- Primary Elevated sedimentation rate Megaloblastic anemia due to vitamin B12 deficiency Other vitamin B12 deficiency anemia Frequent infections Hypogammaglobulinemia (HCC) Hypogammaglobulinaemia, unspecified Bilateral leg weakness Other musculoskeletal symptoms referable to limbs Discoid lupus erythematosus Lupus erythematosus [facility] Diagnosis Systemic lupus erythematosus with other organ involvement (HCC)- Primary [facility]* Diagnosis Vitamin B12 deficiency- Primary Other B-complex deficiencies Other iron deficiency anemia Hypogammaglobulinemia (HCC) Hypogammaglobulinaemia, unspecified [facility]* Diagnosis Other systemic lupus erythematosus with other organ involvement (HCC) documented [facility]* Diagnosis Thyroid nodule (CMS/HCC)- Primary Nontoxic uninodular goiter LPRD (laryngopharyngeal reflux disease) Acute laryngitis, without mention of obstruction [facility]* Diagnosis Hypogammaglobulinemia (HCC)- Primary Hypogammaglobulinaemia, unspecified Vitamin B12 deficiency Other B-complex deficiencies Other iron deficiency anemia Megaloblastic anemia due to vitamin B12 deficiency Other vitamin B12 deficiency anemia documented [facility] this [facility]* Diagnosis Frequent infections- Primary Hypogammaglobulinemia (HCC) Hypogammaglobulinaemia, unspecified Bilateral leg weakness Other musculoskeletal symptoms referable to limbs Discoid lupus erythematosus Lupus erythematosus Elevated sed rate Elevated sedimentation rate Megaloblastic anemia due to vitamin B12 deficiency Other vitamin B12 deficiency anemia [facility]* Diagnosis Other systemic lupus erythematosus with other organ involvement (HCC)- Primary [facility]* Diagnosis Other systemic lupus erythematosus with other organ involvement (HCC) [facility]* Diagnosis Systemic lupus erythematosus with other organ involvement (HCC)- Primary [facility]* Diagnosis Fibromyalgia- Primary Mylagia and myositis, unspecified Family history of disease of aorta Family history of cancer Family history of unspecified malignant neoplasm documented [facility]* Diagnosis Frequent infections- Primary Hypogammaglobulinemia (HCC) [...] vitamin D deficiency documented [facility] this [facility]* Diagnosis Other systemic lupus erythematosus with other organ involvement (HCC)- Primary [facility]* Diagnosis Other systemic lupus erythematosus with other organ involvement (HCC)- Primary Elevated LFTs Other abnormal blood chemistry Anemia of chronic disease Anemia of other chronic disease Elevated sed rate Elevated sedimentation rate Elevated C-reactive protein (CRP) Vitamin B12 deficiency Other B-complex deficiencies Screening-pulmonary TB Screening examination for pulmonary tuberculosis Vitamin D deficiency Unspecified vitamin D deficiency [facility] Diagnosis Other systemic lupus [...] both feet Long-term use of high-risk 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 Encounter for long-term (current) use of steroids Bilateral hand pain Pain in limb Family history of Crohn's disease Family history of other digestive disorders 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 Bilateral wrist pain 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, forearm [facility]* Diagnosis Other systemic lupus erythematosus with other organ involvement (HCC)- Primary documented [facility] this [facility]* Diagnosis Generalized articular hypermobility- Primary Other joint derangement, not elsewhere classified, multiple sites Chronic pain syndrome Discoid lupus erythematosus Lupus erythematosus Family history of pneumothorax in son Family history of other condition Family history of cancer Family history of unspecified malignant neoplasm Family history of mild aortic dilation in daughter Family history of other cardiovascular diseases [facility] Diagnosis Elevated sed rate- Primary Elevated sedimentation rate Megaloblastic anemia due to vitamin B12 deficiency Other vitamin B12 deficiency anemia Frequent infections Hypogammaglobulinemia (HCC) Hypogammaglobulinaemia, unspecified Bilateral leg weakness Other musculoskeletal symptoms referable to limbs Discoid lupus erythematosus Lupus erythematosus documented [facility] this [facility]* Diagnosis Other systemic lupus erythematosus with other organ involvement (HCC)- Primary documented in this [facility]* Diagnosis Hypogammaglobulinemia (HCC)- Primary Hypogammaglobulinaemia, unspecified documented [facility] this [facility]* Diagnosis Hidradenitis suppurativa- Primary Hidradenitis Pain Generalized pain Acne vulgaris Other acne [facility]* Diagnosis Hypogammaglobulinemia (HCC)- Primary Hypogammaglobulinaemia, unspecified Vitamin B12 deficiency Other B-complex deficiencies Other iron deficiency anemia Malaise and fatigue Other malaise and fatigue Shortness of breath Other specified disorders of breast Pre-diabetes Other abnormal glucose Gastro-esophageal reflux disease without esophagitis Esophageal reflux [facility]* Diagnosis Elevated sed rate- Primary Elevated sedimentation rate Megaloblastic anemia due to vitamin B12 deficiency Other vitamin B12 deficiency anemia Frequent infections Hypogammaglobulinemia (HCC) Hypogammaglobulinaemia, unspecified Bilateral leg weakness Other musculoskeletal symptoms referable to limbs Discoid lupus erythematosus Lupus erythematosus [facility]* Diagnosis Other systemic lupus erythematosus with other organ involvement (HCC)- Primary [facility]* Diagnosis Other systemic lupus erythematosus with other organ involvement (HCC)- Primary Elevated LFTs Other abnormal blood chemistry Anemia of chronic disease Anemia of other chronic disease Elevated sed rate Elevated sedimentation rate Elevated C-reactive protein (CRP) Vitamin D deficiency Unspecified vitamin D deficiency Vitamin B12 deficiency Other B-complex deficiencies Screening-pulmonary TB Screening examination for pulmonary tuberculosis [facility] Diagnosis Other systemic lupus erythematosus with other organ involvement (HCC)- Primary Elevated LFTs Other abnormal blood chemistry Anemia of chronic disease Anemia of other chronic disease Elevated C-reactive protein (CRP) Elevated sed rate Elevated sedimentation rate Vitamin D deficiency Unspecified vitamin D deficiency [facility]* Diagnosis Frequent infections- Primary Hypogammaglobulinemia (HCC) Hypogammaglobulinaemia, unspecified Bilateral leg weakness Other musculoskeletal symptoms referable to limbs Discoid lupus erythematosus Lupus erythematosus Elevated sed rate Elevated sedimentation rate Megaloblastic anemia due to vitamin B12 deficiency Other vitamin B12 deficiency anemia [facility]* Diagnosis Pilonidal cyst- Primary Hidradenitis suppurativa Hidradenitis documented in this encounter [facility]* Diagnosis Pilonidal abscess- Primary Pilonidal cyst with abscess Pilonidal cyst documented in this encounter [facility] HealthcareEvaluation note* Diagnosis Nipple discharge in female- Primary Other sign and symptom in breast Type 2 diabetes mellitus with other specified complication, unspecified whether termite control representative insulin use Obesity with serious comorbidity in pediatric patient, unspecified obesity class, unspecified obesity type IgG deficiency Other selective immunoglobulin deficiencies Recurrent infections Unspecified infectious and parasitic diseases Pilonidal abscess Pilonidal cyst with abscess Tobacco use disorder documented in this encounter [facility] Narrative - Reported* Type Description Date Medical History hyperlipidemia Medical Historyinsulin resistanceMedical HistoryCMVSurgical Historycyst removal pilonidalSurgical HistoryD&CHospitalization Historypregnancy [facility] [employer] Other Hospital Discharge instructionsAmbulatory Orders* Referral to Gastroenterology Location: None [facility] Work Phone: Hospital Discharge instructions Additional Instructions Dressing changes to sacral region daily: Remove packing, irrigate with saline, repack with saline moistened 2 x 2 gauze and cover with dry dressingUniversity Hospitals [facility] Work Phone: InstructionsNot on filedocumented in this encounter [facility] (narrative)* Diagnostic Procedure Only (Routine) - Pending ReviewSpecialtyDiagnoses / ProceduresReferred By ContactReferred To ContactXR IMAGING Diagnoses Steroid-induced osteoporosis Procedures DXA-FOREARM SKELETON DXA BONE DENSITY STUDY 1/>SITES APPENDICLR Lynne Perera MD [address] [facility] [place] [address] [place] [address] Referral IDStatusReSt. Vincent's Blount DateExpiration DateVisits RequestedVisits [id number] Review Auto-Generated Referral [facility] for referral (narrative)* Consultation (Routine) - AuthorizedSpecialtyDiagnoses / ProceduresReferred By ContactReferred To ContactCardiology Diagnoses Irregular heart rate Essential hypertension Autonomic dysfunction Obstructive sleep apnea syndrome Primary hypertension Procedures Follow Up In Cardiology Michelle Jasmine, WEATHER TEACHER-BIRD SITTER [address] [facility] [address] [place] [address] Aurora Patel MD [address] [facility] [address] [place] [address] Referral IDStatusReasonStart DateExpiration DateVisits RequestedVisits [id number]/17/20241/16/202511 * Cardiovascular (Routine) - Pending ReviewSpecialtyDiagnoses / Procedures Referred By ContactReferred To ContactCardiology Diagnoses Irregular heart rate 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 Michelle Jasmine APRN-CNP 254 [facility] [address] [place] [address] Referral IDStatusReasonStart DateExpiration DateVisits RequestedVisits [id number] Review * CV Imaging (Routine) - Pending ReviewSpecialtyDiagnoses / ProceduresReferred By ContactReferred To ContactCardiology Diagnoses Irregular heart rate Obstructive sleep apnea syndrome Procedures Transthoracic Echo (TTE) Complete [place] ECHO TTHRC R-T 2D W/WOM-MODE COMPL SPEC&COLR D Michelle Jasmine APRN-CNP 254 [facility] [address] [place] [address] Referral IDStatusReasonStart DateExpiration DateVisits RequestedVisits [id number] Review Perform Procedure / * Cardiovascular (Routine) - AuthorizedSpecialtyDiagnoses / ProceduresReferred By ContactReferred To Contact Diagnoses Irregular heart rate Procedures ECG 12 Lead Michelle Jasmine APRN-CNP 254 [facility] [address] [place] [address] Referral IDStatusReasonStart DateExpiration DateVisits RequestedVisits [id number]/17/20241/16/202511 [facility] Work Phone: Reason for referral (narrative)* Consultation (Routine) - Pending ReviewSpecialtyDiagnoses / ProceduresReferred By Contact Referred To ContactPain Medicine Diagnoses Lumbosacral radiculopathy at L5 Degenerative disc disease, lumbar Procedures [place] OFFICE/OUTPATIENT [facility] 60 MINUTES Kade Early MD [address] [facility] [address] [place] [address] Adolfo Kang MD [address] [phone] Referral IDStatusReasonStart DateExpiration DateVisits RequestedVisits [id number] Review Specialty Services Required / [facility] (narrative)No reason for referral information availableMarietta Osteopathic Clinic Work Phone: Reason for visit Narrative* [place] Prior Authorization (Routine) - AuthorizedSpecialtyDiagnoses / ProceduresReferred By Contact Referred To Contact Diagnoses Frequent infections Hypogammaglobulinemia (HCC) Bilateral leg weakness Discoid lupus erythematosus Procedures GAMMAGARD LIQUID INJECTION Vera Najera MD [address] [facility] [place] [address] Phone: tel: fax: Hematology/Oncology [address] [place] [address] [place] [address] Phone: tel: fax: Referral IDStatusReasonStart DateExpiration DateVisits RequestedVisits [id number]/11/20245/ [facility] CompanyReason for visit Narrative* [place] Prior Authorization (Routine) - AuthorizedSpecialtyDiagnoses / ProceduresReferred By ContactReferred To Contact Diagnoses Other systemic lupus erythematosus with other organ involvement (HCC) Procedures BELIMUMAB INJECTION Lynne Ni MD [address] [place] [place] [address] Phone: tel: fax: Lynne Ni MD [address] [place] [place] [address] Phone: tel: fax: Referral IDStatusReasonStart DateExpiration DateVisits RequestedVisits [id number]/18/202510/18/202588 [facility] for visit Narrative* [place] Prior Authorization (Routine) - AuthorizedSpecialtyDiagnoses / ProceduresReferred By ContactReferred To Contact Diagnoses Other iron deficiency anemia Procedures IRON SUCROSE INJECTION PER 1 MG Vaibhav Carvalho APRN.BIRD SITTER [address] [facility] [place] [address] Phone: tel: fax: Hematology/Oncology [address] [place] [address] [address] [place] [id number] Phone: tel: fax: Referral IDStatusReasonStart DateExpiration DateVisits RequestedVisits [id number]/24/202512/31/[id number] [facility] for visit Narrative* [place] Prior Authorization (Routine) - AuthorizedSpecialtyDiagnoses / ProceduresReferred By ContactReferred To Contact Diagnoses Frequent infections Hypogammaglobulinemia (HCC) Bilateral leg weakness Discoid lupus erythematosus Procedures GAMMAGARD LIQUID INJECTION Vera Najera MD [address] [facility] [place] [address] Phone: tel: fax: Hematology/Oncology [address] [place] [address] [place] [address] Phone: tel: fax: Referral IDStatusReasonStart DateExpiration DateVisits RequestedVisits [id number] Patient Cleared - Admin/Special Duty Nurse/Director advise to proceed or did not respond [facility] for visit Narrative* [place] Prior Authorization (Routine) - AuthorizedSpecialtyDiagnoses / ProceduresReferred By ContactReferred To Contact Diagnoses Frequent infections Hypogammaglobulinemia (HCC) Bilateral leg weakness Discoid lupus erythematosus Procedures GAMMAGARD LIQUID INJECTION Vera Najera MD [address] [facility] [place] [address] Phone: tel: fax: Hematology/Oncology [address] [place] [address] [place] [address] Phone: tel: fax: Referral IDStatusReasonStart DateExpiration DateVisits RequestedVisits [id number] Patient Cleared - Admin/Special Duty Nurse/Director advise to proceed or did not respond [facility] for visit Narrative* [place] Prior Authorization (Routine) - AuthorizedSpecialtyDiagnoses / ProceduresReferred By ContactReferred To Contact Diagnoses Frequent infections Hypogammaglobulinemia (HCC) Bilateral leg weakness Discoid lupus erythematosus Procedures GAMMAGARD LIQUID INJECTION IMMUNE GLOBULIN INJECTION Vera Najera MD [address] [place] [address] [place] [address] Phone: tel: fax: Hematology/Oncology [address] [place] [address] [place] [address] Phone: tel: fax: Referral IDStatusReasonStcleveland DateExpiration DateVisits RequestedVisits [id number] Patient Cleared - Admin/Special Duty Nurse/Director advise to proceed or did not respond [facility] Summary Purpose Family History No Family History Records Found Relationship Condition Age at Onset Recorded Date/T michelle father Unknown Malignant neoplasmUnknown Relationship Condition Age at Onset Recorded Date/T michelle father Malignant neoplasm of stomach Unknown DeceasedUnknownmotherCrohn's diseaseUnknown Advance Directives No Advanced Directives Records FoundDocuments on File TypeDate RecordedPatient RepresentativeExplanationACP-Advance DirectiveACP-Power of AttorneyCode StatusDate [...] Procedures CONSULT TO INFECTIOUS DISEASES OFFICE/OUTPATIENT [facility] 60 MINUTES Vaibhav Carvalho, MAURILIO.[address] [place] [address] Referral IDStatusReasonart DateExpiration DateVisits RequestedVisits [id number] PCP Requested Referral /[id number] / ProceduresReferred By ContactReferred To Contact Diagnoses Paroxysmal supraventricular tachycardia PAC (premature atrial contraction) Procedures ECG 12 Lead Lois Holm MD [address] [place] [address] 2, [address] [address] Referral IDStatusReasonStart DateExpiration DateVisits RequestedVisits [id number]/20/20242/950286GmnomtnmaAnqhizbec / Procedures Referred By ContactReferred To ContactCardiology Diagnoses Shortness of breath Paroxysmal supraventricular tachycardia PAC (premature atrial contraction) Procedures Follow Up In Cardiology Lois Holm MD [address] [place] [address] 2, [address] [address] Lois Holm MD [address] [place] [address] 2, [address] [address] Referral IDStatusReasonStart DateExpiration DateVisits RequestedVisits [id number]/20/20242/936680FzufwesaaBleuvftgq / Procedures Referred By ContactReferred To Contact Diagnoses Obesity, Class III, BMI 40-49.9 (morbid obesity) (HCC) Pre-diabetes Christie Phan MD [address] [place] [address] Referral IDStatusReasonStart DateExpiration DateVisits RequestedVisits [id number] / ProceduresReferred By Contact Referred To Contact Diagnoses Wound healing, delayed Procedures CONSULT TO MEDICAL GENETICS - GENERAL OFFICE/OUTPATIENT [facility] 60-74 MINUTES MEDICAL GENETICS COUNSELING EACH 30 MINUTES Misty Nelson MD [facility] [place] [address] [facility] Medicine [place] [address] [place] [address] Referral IDStatusReasonStart DateExpiration DateVisits RequestedVisits [id number] PCP Requested Referral Auto-Generated Referral [id number] / ProceduresReferred By ContactReferred To ContactNeurology Diagnoses POTS (postural orthostatic tachycardia syndrome) Procedures CONSULT TO NEUROLOGY OFFICE/OUTPATIENT [facility] 60-74 MINUTES Christie Phan MD [address] [place] [address] Referral IDStatusReasonStart DateExpiration DateVisits RequestedVisits [id number] PCP Requested Referral /[id number] / ProceduresReferred By ContactReferred To ContactImmunology Diagnoses Raised level of immunoglobulins Procedures CONSULT TO IMMUNOLOGY OFFICE/OUTPATIENT [facility] 60-74 MINUTES Christie Phan MD [address] [place] [address] Referral IDStatusReasonStart DateExpiration DateVisits RequestedVisits [id number] PCP Requested Referral [id number] / ProceduresReferred By ContactReferred To ContactNEUROLOGICAL INSTITUTE Diagnoses Somnolence, daytime Snoring Procedures HOME SLEEP APNEA TEST (HSAT) SLEEP STD AIRFLOW HRT RATE&O2 SAT EFFORT Christie Pang MD [address] [place] [address] Neurological [place] [address] [place] [address] Referral IDStatusReasonStart DateExpiration DateVisits RequestedVisits [id number] Auto-Generated Referral [id number] / ProceduresReferred By ContactReferred To Contact Diagnoses Somnolence, daytime Chronic fatigue and malaise Obesity, unspecified classification, unspecified obesity type, unspecified whether serious comorbidity present Procedures CONSULT TO LIFESTYLE MEDICINE [place] OFFICE/OUTPATIENT [facility] 60-74 MINUTES Vera Najera MD [address] [place] [address] [place] [address] Referral IDStatusKierstenSt. Vincent's Blount DateExpiration DateVisits RequestedVisits [id number] PCP Requested Referral [id number] / ProceduresReferred By ContactReferred To Contact Diagnoses Somnolence, daytime Snoring Procedures CONSULT TO SLEEP MEDICINE - ADULT OFFICE/OUTPATIENT [facility] 60-74 MINUTES Vera Najera MD [address] [place] [address] [place] [address] Referral IDStatusReasonStcleveland DateExpiration DateVisits RequestedVisits [id number] PCP Requested Referral Medications Administered Section Medication [...] ONCE, 1 dose, On Wed04/16/23 at 1100 04/16/2023 11:09 AM EST1,000 [place], Right Chief Complaint and Reason for Visit [...] f/u REFF BY DR. JOSUE EARLY Back PainReason for VisitNipple discharge in female Recurrent Clostridioides [...] and content) DATE CREATED AUTHOR 09/20/2018 [facility] DATE CREATED AUTHOR AUTHOR'S ORGANIZ ATION 12/10/2018 [facility] DATE CREATED AUTHOR AUTHOR'S ORGANIZ ATION 01/13/2019 [facility] DATE CREATED AUTHOR AUTHOR'S ORGANIZ ATION 06/28/2021 [facility] DATE CREATED AUTHOR AUTHOR'S ORGANIZ ATION 10/01/2022 [facility] DATE CREATED AUTHOR AUTHOR'S ORGANIZ ATION 03/10/2024 [facility] DATE CREATED AUTHOR AUTHOR'S ORGANIZ ATION 07/22/2024 [facility] DATE CREATED AUTHOR AUTHOR'S ORGANIZ ATION 07/28/2024 [facility] DATE CREATED AUTHOR AUTHOR'S ORGANIZ ATION 03/02/2025 [facility] DATE CREATED AUTHOR AUTHOR'S ORGANIZ ATION 03/14/2025 [facility] DATE CREATED AUTHOR AUTHOR'S ORGANIZ ATION 03/18/2025 [facility] DATE CREATED AUTHOR AUTHOR'S ORGANIZ ATION 03/21/2025 [facility] Reason for Visit (unrecogniz ed section and content) ReasonCommentsInfection Follow UpSpecialtyDiagnoses / ProceduresReferred By ContactReferred To ContactInfectious Diseases Diagnoses Positive blood cultures Procedures CONSULT TO INFECTIOUS DISEASES OFFICE/OUTPATIENT [facility] 60 MINUTES Vaibhav Carvalho APRN.[address] [place] [address] Phone: tel: fax: Referral IDStatusReasonStart DateExpiration DateVisits RequestedVisits [id number] PCP Requested Referral [id number]autwlp / ProceduresReferred By ContactReferred To Contact [facility] ReasonCommentsPainongoing generalized pain.ReasonCommentsNewReasonCommentsOpened In ErrorReasonCommentsResultsReasonCommentsAbnormal labsNew patient consult ReasonCommentsNew PatientVirtual visitSpecialtyDiagnoses / ProceduresReferred By ContactReferred To Contact Diagnoses Somnolence, daytime Chronic fatigue and malaise Obesity, unspecified classification, unspecified obesity type, unspecified whether serious comorbidity present Procedures CONSULT TO LIFESTYLE MEDICINE [place] OFFICE/OUTPATIENT [facility] 60-74 MINUTES Vera Najera MD [address] [facility] [place] [address] Referral IDStatusReasonStart DateExpiration DateVisits RequestedVisits [id number] PCP Requested Referral [id number] Total serum IgMAnemiaReasonComments ConsultSpecialtyDiagnoses / ProceduresReferred By ContactReferred To Contact Immunology Diagnoses Raised level of immunoglobulins Procedures CONSULT TO IMMUNOLOGY OFFICE/OUTPATIENT [facility] 60-74 MINUTES Christie Phan MD [address] [place] [address] Referral IDStatusReasonStart DateExpiration DateVisits RequestedVisits [id number] PCP Requested Referral [id number]duyxsPtticbkrYalnkt RequestReason CommentsAppointmentCare Coordinator - OtherReasonCommentsFuture Appointment Scheduling questions/concernsReasonCommentsPAP Therapy Follow UpReasonComments PAP Rx FaxedDME Josh MarshalluskyReasonCommentsAnemia8 week follow upReason CommentsOrdersLab Orders Before AppointmentReasonCommentsSleep Apnea ReasonCommentsAnemiaReasonCommentsPainWeight ManagementReasonCommentsReason CommentsCare CoordinationappointmentReasonCommentsEstablished PatientReason CommentsAppointmentReasonCommentsFollow UpReasonOnset DateCommentsRefill Request 12/24/2022ReasonCommentsSLEReasonOnset DateCommentsSPP Inflammatory Conditions - Treatment Vdcyzmme28/14/2023enlystaInsurance Afdufaxrkufai33/14/2023A submission pendingReasonCommentsAppointmentOrdersMedication AuthorizationReason CommentsResultsEye ExamReasonCommentsAllied Health VisitBenlysta teachingReason CommentsCMNReasonCommentsEstablished Patient Follow-UpReasonCommentsWeight ManagementReasonCommentsNew Patient VisitHEART RATE/ BPSpecialtyDiagnoses / ProceduresReferred By ContactReferred To Contact Diagnoses Irregular heart rate Procedures ECG 12 Lead Michelle Jasmine, WEATHER TEACHER-BIRD SITTER [address] [facility] [address] [place] [address] Referral IDStatusReasonart DateExpiration DateVisits RequestedVisits [id number]/17/20241/340035VulyfyKymncbadQbn Patient Visit Leg Swelling, [facility]ialtyDiagnoses / ProceduresReferred By ContactReferred To Contact Diagnoses Paroxysmal supraventricular tachycardia PAC (premature atrial contraction) Procedures ECG 12 Lead Lois Holm MD [address] [facility] [address] [place] [address] Referral IDStatusReasonStart DateExpiration DateVisits RequestedVisits [id number]/20/20242/497526IgcjdpJjtli DateCommentsSPP Inflammatory Conditions - Medication Mlmoae2807/13/2023enlystaReasonOnset Date CommentsSPP Inflammatory Conditions - Medication Nhhpyj5608/12/2023enlystaReason Onset DateCommentsSPP Inflammatory Conditions - Medication Hvvouw0409/13/2023 BenlystaReasonCommentsSLEReasonOnset DateCommentsSPP Inflammatory Conditions - Medication Kapquv6710/12/2023enlystaReasonOnset DateCommentsRefill Request 4ReasonOnset DateCommentsSPP Inflammatory Conditions - Medication Detium7911/15/2023enlysta - NCA 09/2024ReasonOnset DateCommentsSPP Inflammatory Conditions - Medication Dlscnu4212/13/2023enlysta - NCA 09/2024ReasonOnset Date CommentsSPP Inflammatory Conditions - Medication Ktcrxi6901/18/2024enlystaReason Onset DateCommentsSPP Inflammatory Conditions - Medication Olnjko9102/14/2024 Benlysta - NCA 09/2024ReasonOnset DateCommentsSPP Inflammatory Conditions - Follow-up02/14/2024enlystaInsurance Awoynmpvrgims23/23/2024A Renewal Submitted ReasonCommentsOrdersPAP RX.ReasonCommentsCare Coordinator - OtherEds scheduling ReasonCommentsMed Change RequestReasonCommentscmnReasonOnset DateCommentsSPP Inflammatory Conditions - Medication Mrejdd8303/13/2024enlysta - NCA 09/2024Reason CommentsBreast ProblemReasonCommentsVaginal BleedingPt present today for bleeding when she wipes.ReasonOnset DateCommentsSPP Inflammatory Conditions - Medication Hxoyzy8104/11/2024enlystaReasonCommentsEar ProblemPossible thrush, ear painReasonCommentsMed RefillReasonOnset DateCommentsSPP Inflammatory Conditions - Medication Izrvhm4705/12/2024enlystaSpecialtyDiagnoses / ProceduresReferred By ContactReferred To Contact Diagnoses Frequent infections Hypogammaglobulinemia (HCC) Bilateral leg weakness Discoid lupus erythematosus Procedures GAMMAGARD LIQUID INJECTION Vera Najera MD [address] [place] [address] [place] [address] [employer] [place] [address] [place] [address] Referral IDStatusReasonStart DateExpiration DateVisits RequestedVisits [id number]/11/20245/11/031260VjzlziTfglrqwmUwxe Women Visit ReasonOnset DateCommentsSPP Inflammatory Conditions - Medication Refill 06/06/2024enlystaReasonCommentsLab OrdersReasonCommentsArt TherapyReason CommentsAnemiaReasonCommentsBreath Hydrogen TestSIBO Breath TestReasonOnset Date CommentsSPP Inflammatory Conditions - Medication Udcioj8106/29/2024enlystaReason Commentsposs raynaudsSpecialtyDiagnoses / ProceduresReferred By ContactReferred To ContactVascular Surgery Diagnoses Cold extremities Pain of lower extremity, unspecified laterality Gay De La Torre, WEATHER TEACHER-BIRD SITTER [address] [place] [address] Phone: tel:[phone] fax: Hayden Arciniega MD [address] [place] [address] Phone: tel:[phone] fax: Referral IDStatusReasonStart DateExpiration DateVisits RequestedVisits [id number] Review Specialty Services Required [id number]/Lip ProblemSince FebruaryRe DateCommentsSPP Inflammatory Conditions - Medication Pajoie6807/25/2024enlysta ReasonCommentsFollow-upSkin CheckReasonCommentsAnnual ExamSpecialtyDiagnoses / ProceduresReferred By ContactReferred To ContactCardiology Diagnoses Shortness of breath Paroxysmal supraventricular tachycardia (CMS-HCC) PAC (premature atrial contraction) Procedures Follow Up In Cardiology Lois Holm MD [address] [place] [address] [address], [address] [address] Phone: tel: fax: Lois Holm MD [address] [place] [address] 2, [address] [address] Phone: tel: fax: Referral IDStatusReasonStart DateExpiration DateVisits RequestedVisits [id number]/20/20242/509043TbkyoiNxbquueaQta Change Request ReasonCommentsPatient QuestionReasonOnset DateCommentsSPP Inflammatory Conditions - Medication Hfspat3308/17/2024enlystaReasonOnset DateCommentsRefill Xmqyeii4209/01/2024ReasonCommentsThyroid NoduleFollow up ultrasound [facility] 08/24/24 ReasonCommentsMegaloblastic anemia due to vitamin B12 deficiencyTreatment visit ReasonOnset GyllKoazfaujDqywsgt76/17/2025ReasonCommentsMedication PreauthorizationAppointmentReasonCommentsFuture AppointmentReasonOnset Date CommentsSPP Inflammatory Conditions - Medication Ztulhj2209/20/2024enlystaReason CommentsJoint PainReasonCommentsPatient UpdateAppointmentReasonCommentsSLE OsteoarthritisReasonCommentsConsulthypermobilitySpecialtyDiagnoses / Procedures Referred By ContactReferred To ContactGenetics / MEDICAL GENETICS Diagnoses hEDS with concerns and wants CTD evaluation Procedures EST PATIENT Self Ny Lance MD [address] [place] [address] Phone: tel: fax: Referral IDStatusReasonStart DateExpiration DateVisits RequestedVisits [id number] Review/740375YdeuhfPtuzagofTjsotg-mm ReasonCommentsHypogammagloblinemiaMegablastic anemiaOTVReasonOnset DateComments Iwrggep9611/30/2024ReasonCommentsFollow-upSuspicious Skin LesionReasonComments ConsultPilonidal cyst- Pt had a pilonidal cyst and sinus removal about 15 yrs ago- [facility] did procedure. Everything went well and was doing fine until about 2-3 weeks ago.SpecialtyDiagnoses / ProceduresReferred By ContactReferred To Contact General Surgery Diagnoses Pilonidal cyst Procedures [place] OFFICE/OUTPATIENT [facility] MDM 60 MINUTES Bernabe English MD [address] [place] [address] Phone: tel: fax: Terence Blum MD [address] [facility] [address] [place] [address] Phone: tel: fax: Referral IDStatusReasonStart DateExpiration DateVisits RequestedVisits [id number] Specialty Services Required /[id number] PatientPilonidal cyst with abscessReferral from Dr. Gay De La Torre- [facility]. Patient denies fever, nausea, vomiting or diarrheaNo current complaints of SOB, cough or congestion Ordered Prescriptions (unrec ognized section and content) [...] any alcohol or drug abuse patient.[facility] CompanyIn the event this information is protected by the Federal Confidentiality of Alcohol and Drug Abuse Patient Records regulations: The Federal rules restrict any use of the information to criminally investigate or prosecute any alcohol or drug abuse patient.[facility] CompanyIn the event this information is protected by the Federal Confidentiality of Alcohol and Drug Abuse Patient Records regulations: The Federal rules restrict any use of the information to criminally investigate or prosecute any alcohol or drug abuse patient.[facility] CompanyIn the event this information is protected by the Federal Confidentiality of Alcohol and Drug Abuse Patient Records regulations: The Federal rules restrict any use of the information to criminally investigate or prosecute any alcohol or drug abuse patient.[facility] CompanyIn the event this information is protected by the Federal Confidentiality of Alcohol and Drug Abuse Patient Records regulations: The Federal rules restrict any use of the information to criminally investigate or prosecute any alcohol or drug abuse patient.[facility] CompanyIn the event this information is protected by the Federal Confidentiality of Alcohol and Drug Abuse Patient Records regulations: The Federal rules restrict any use of the information to criminally investigate or prosecute any alcohol or drug abuse patient.[facility] CompanyIn the event this information is protected by the Federal Confidentiality of Alcohol and Drug Abuse Patient Records regulations: The Federal rules restrict any use of the information to criminally investigate or prosecute any alcohol or drug abuse patient.[facility] CompanyIn the event this information is protected by the Federal Confidentiality of Alcohol and Drug Abuse Patient Records regulations: The Federal rules restrict any use of the information to criminally investigate or prosecute any alcohol or drug abuse patient.[facility] CompanyIn the event this information is protected by the Federal Confidentiality of Alcohol and Drug Abuse Patient Records regulations: The Federal rules restrict any use of the information to criminally investigate or prosecute any alcohol or drug abuse patient.[facility] CompanyIn the event this information is protected by the Federal Confidentiality of Alcohol and Drug Abuse Patient Records regulations: The Federal rules restrict any use of the information to criminally investigate or prosecute any alcohol or drug abuse patient.[facility] CompanyIn the event this information is protected by the Federal Confidentiality of Alcohol and Drug Abuse Patient Records regulations: The Federal rules restrict any use of the information to criminally investigate or prosecute any alcohol or drug abuse patient.[facility] CompanyIn the event this information is protected by the Federal Confidentiality of Alcohol and Drug Abuse Patient Records regulations: The Federal rules restrict any use of the information to criminally investigate or prosecute any alcohol or drug abuse patient.[facility] CompanyIn the event this information is protected by the Federal Confidentiality of Alcohol and Drug Abuse Patient Records regulations: The Federal rules restrict any use of the information to criminally investigate or prosecute any alcohol or drug abuse patient.[facility] CompanyIn the event this information is protected by the Federal Confidentiality of Alcohol and Drug Abuse Patient Records regulations: The Federal rules restrict any use of the information to criminally investigate or prosecute any alcohol or drug abuse patient.[facility] the event this information is protected by the Federal Confidentiality of Alcohol and Drug Abuse Patient Records regulations: The Federal rules restrict any use of the information to criminally investigate or prosecute any alcohol or drug abuse patient.[facility] CompanyIn the event this information is protected by the Federal Confidentiality of Alcohol and Drug Abuse Patient Records regulations: The Federal rules restrict any use of the information to criminally investigate or prosecute any alcohol or drug abuse patient.[facility] CompanyIn the event this information is protected by [...] any alcohol or drug abuse patient.[facility] CompanyIn the event this information is protected by the Federal Confidentiality of Alcohol and Drug Abuse Patient Records regulations: The Federal rules restrict any use of the information to criminally investigate or prosecute any alcohol or drug abuse patient.[facility] CompanyIn the event this information is protected by the Federal Confidentiality of Alcohol and Drug Abuse Patient Records regulations: The Federal rules restrict any use of the information to criminally investigate or prosecute any alcohol or drug abuse patient.[facility] CompanyIn the event this information is protected by the Federal Confidentiality of Alcohol and Drug Abuse Patient Records regulations: The Federal rules restrict any use of the information to criminally investigate or prosecute any alcohol or drug abuse patient.[facility] CompanyIn the event this information is protected by the Federal Confidentiality of Alcohol and Drug Abuse Patient Records regulations: The Federal rules restrict any use of the information to criminally investigate or prosecute any alcohol or drug abuse patient.[facility] CompanyIn the event this information is protected by the Federal Confidentiality of Alcohol and Drug Abuse Patient Records regulations: The Federal rules restrict any use of the information to criminally investigate or prosecute any alcohol or drug abuse patient.[facility] CompanyIn the event this information is protected by the Federal Confidentiality of Alcohol and Drug Abuse Patient Records regulations: The Federal rules restrict any use of the information to criminally investigate or prosecute any alcohol or drug abuse patient.[facility] CompanyIn the event this information is protected by the Federal Confidentiality of Alcohol and Drug Abuse Patient Records regulations: The Federal rules restrict any use of the information to criminally investigate or prosecute any alcohol or drug abuse patient.[facility] CompanyIn the event this information is protected by the Federal Confidentiality of Alcohol and Drug Abuse Patient Records regulations: The Federal rules restrict any use of the information to criminally investigate or prosecute any alcohol or drug abuse patient.[facility] CompanyIn the event this information is protected by the Federal Confidentiality of Alcohol and Drug Abuse Patient Records regulations: The Federal rules restrict any use of the information to criminally investigate or prosecute any alcohol or drug abuse patient.[facility] CompanyIn the event this information is protected by the Federal Confidentiality of Alcohol and Drug Abuse Patient Records regulations: The Federal rules restrict any use of the information to criminally investigate or prosecute any alcohol or drug abuse patient.[facility] CompanyIn the event this information is protected by the Federal Confidentiality of Alcohol and Drug Abuse Patient Records regulations: The Federal rules restrict any use of the information to criminally investigate or prosecute any alcohol or drug abuse patient.[facility] CompanyIn the event this information is protected by the Federal Confidentiality of Alcohol and Drug Abuse Patient Records regulations: The Federal rules restrict any use of the information to criminally investigate or prosecute any alcohol or drug abuse patient.[facility] CompanyIn the event this information is protected by the Federal Confidentiality of Alcohol and Drug Abuse Patient Records regulations: The Federal rules restrict any use of the information to criminally investigate or prosecute any alcohol or drug abuse patient.[facility] CompanyIn the event this information is protected by the Federal Confidentiality of Alcohol and Drug Abuse Patient Records regulations: The Federal rules restrict any use of the information to criminally investigate or prosecute any alcohol or drug abuse patient.[facility] CompanyIn the event this information is protected by the Federal Confidentiality of Alcohol and Drug Abuse Patient Records regulations: The Federal rules restrict any use of the information to criminally investigate or prosecute any alcohol or drug abuse patient.[facility] CompanyIn the event this information is protected by the Federal Confidentiality of Alcohol and Drug Abuse Patient Records regulations: The Federal rules restrict any use of the information to criminally investigate or prosecute any alcohol or drug abuse patient.[facility] CompanyIn the event this information is protected by the Federal Confidentiality of Alcohol and Drug Abuse Patient Records regulations: The Federal rules restrict any use of the information to criminally investigate or prosecute any alcohol or drug abuse patient.[facility] CompanyIn the event this information is protected by the Federal Confidentiality of Alcohol and Drug Abuse Patient Records regulations: The Federal rules restrict any use of the information to criminally investigate or prosecute any alcohol or drug abuse patient.[facility] CompanyIn the event this information is protected by the Federal Confidentiality of Alcohol and Drug Abuse Patient Records regulations: The Federal rules restrict any use of the information to criminally investigate or prosecute any alcohol or drug abuse patient.[facility] CompanyIn the event this information is protected by the Federal Confidentiality of Alcohol and Drug Abuse Patient Records regulations: The Federal rules restrict any use of the information to criminally investigate or prosecute any alcohol or drug abuse patient.[facility] CompanyIn the event this information is protected by the Federal Confidentiality of Alcohol and Drug Abuse Patient Records regulations: The Federal rules restrict any use of the information to criminally investigate or prosecute any alcohol or drug abuse patient.[facility] CompanyIn the event this information is protected by the Federal Confidentiality of Alcohol and Drug Abuse Patient Records regulations: The Federal rules restrict any use of the information to criminally investigate or prosecute any alcohol or drug abuse patient.[facility] CompanyIn the event this information is protected by the Federal Confidentiality of Alcohol and Drug Abuse Patient Records regulations: The Federal rules restrict any use of the information to criminally investigate or prosecute any alcohol or drug abuse patient.[facility] CompanyIn the event this information is protected by the Federal Confidentiality of Alcohol and Drug Abuse Patient Records regulations: The Federal rules restrict any use of the information to criminally investigate or prosecute any alcohol or drug abuse patient.[facility] CompanyIn the event this information is protected by the Federal Confidentiality of Alcohol and Drug Abuse Patient Records regulations: The Federal rules restrict any use of the information to criminally investigate or prosecute any alcohol or drug abuse patient.[facility] CompanyIn the event this information is protected by the Federal Confidentiality of Alcohol and Drug Abuse Patient Records regulations: The Federal rules restrict any use of the information to criminally investigate or prosecute any alcohol or drug abuse patient.[facility] CompanyIn the event this information is protected by the Federal Confidentiality of Alcohol and Drug Abuse Patient Records regulations: The Federal rules restrict any use of the information to criminally investigate or prosecute any alcohol or drug abuse patient.[facility] CompanyIn the event this information is protected by the Federal Confidentiality of Alcohol and Drug Abuse Patient Records regulations: The Federal rules restrict any use of the information to criminally investigate or prosecute any alcohol or drug abuse patient.[facility] CompanyIn the event this information is protected by the Federal Confidentiality of Alcohol and Drug Abuse Patient Records regulations: The Federal rules restrict any use of the information to criminally investigate or prosecute any alcohol or drug abuse patient.[facility] CompanyIn the event this information is protected by the Federal Confidentiality of Alcohol and Drug Abuse Patient Records regulations: The Federal rules restrict any use of the information to criminally investigate or prosecute any alcohol or drug abuse patient.[facility] CompanyIn the event this information is protected by the Federal Confidentiality of Alcohol and Drug Abuse Patient Records regulations: The Federal rules restrict any use of the information to criminally investigate or prosecute any alcohol or drug abuse patient.[facility] CompanyIn the event this information is protected by the Federal Confidentiality of Alcohol and Drug Abuse Patient Records regulations: The Federal rules restrict any use of the information to criminally investigate or prosecute any alcohol or drug abuse patient.[facility] CompanyIn the event this information is protected by the Federal Confidentiality of Alcohol and Drug Abuse Patient Records regulations: The Federal rules restrict any use of the information to criminally investigate or prosecute any alcohol or drug abuse patient.[facility] CompanyIn the event this information is protected by the Federal Confidentiality of Alcohol and Drug Abuse Patient Records regulations: The Federal rules restrict any use of the information to criminally investigate or prosecute any alcohol or drug abuse patient.[facility] CompanyIn the event this information is protected by the Federal Confidentiality of Alcohol and Drug Abuse Patient Records regulations: The Federal rules restrict any use of the information to criminally investigate or prosecute any alcohol or drug abuse patient.[facility] CompanyIn the event this information is protected by the Federal Confidentiality of Alcohol and Drug Abuse Patient Records regulations: The Federal rules restrict any use of the information to criminally investigate or prosecute any alcohol or drug abuse patient.[facility] CompanyIn the event this information is protected by the Federal Confidentiality of Alcohol and Drug Abuse Patient Records regulations: The Federal rules restrict any use of the information to criminally investigate or prosecute any alcohol or drug abuse patient.[facility] CompanyIn the event this information is protected by the Federal Confidentiality of Alcohol and Drug Abuse Patient Records regulations: The Federal rules restrict any use of the information to criminally investigate or prosecute any alcohol or drug abuse patient.[facility] CompanyIn the event this information is protected by the Federal Confidentiality of Alcohol and Drug Abuse Patient Records regulations: The Federal rules restrict any use of the information to criminally investigate or prosecute any alcohol or drug abuse patient.[facility] CompanyIn the event this information is protected by the Federal Confidentiality of Alcohol and Drug Abuse Patient Records regulations: The Federal rules restrict any use of the information to criminally investigate or prosecute any alcohol or drug abuse patient.[facility] CompanyIn the event this information is protected by the Federal Confidentiality of Alcohol and Drug Abuse Patient Records regulations: The Federal rules restrict any use of the information to criminally investigate or prosecute any alcohol or drug abuse patient.[facility] CompanyIn the event this information is protected by the Federal Confidentiality of Alcohol and Drug Abuse Patient Records regulations: The Federal rules restrict any use of the information to criminally investigate or prosecute any alcohol or drug abuse patient.[facility] CompanyIn the event this information is protected by the Federal Confidentiality of Alcohol and Drug Abuse Patient Records regulations: The Federal rules restrict any use of the information to criminally investigate or prosecute any alcohol or drug abuse patient.[facility] CompanyIn the event this information is protected by the Federal Confidentiality of Alcohol and Drug Abuse Patient Records regulations: The Federal rules restrict any use of the information to criminally investigate or prosecute any alcohol or drug abuse patient.[facility] CompanyIn the event this information is protected by the Federal Confidentiality of Alcohol and Drug Abuse Patient Records regulations: The Federal rules restrict any use of the information to criminally investigate or prosecute any alcohol or drug abuse patient.[facility] CompanyIn the event this information is protected by the Federal Confidentiality of Alcohol and Drug Abuse Patient Records regulations: The Federal rules restrict any use of the information to criminally investigate or prosecute any alcohol or drug abuse patient.[facility] the event this information is protected by the Federal Confidentiality of Alcohol and Drug Abuse Patient Records regulations: The Federal rules restrict any use of the information to criminally investigate or prosecute any alcohol or drug abuse patient.[facility] CompanyIn the event this information is protected by the Federal Confidentiality of Alcohol and Drug Abuse Patient Records regulations: The Federal rules restrict any use of the information to criminally investigate or prosecute any alcohol or drug abuse patient.[facility] CompanyIn the event this information is protected by [...] any alcohol or drug abuse patient.[facility] CompanyIn the event this information is protected by the Federal Confidentiality of Alcohol and Drug Abuse Patient Records regulations: The Federal rules restrict any use of the information to criminally investigate or prosecute any alcohol or drug abuse patient.[facility] CompanyIn the event this information is protected by the Federal Confidentiality of Alcohol and Drug Abuse Patient Records regulations: The Federal rules restrict any use of the information to criminally investigate or prosecute any alcohol or drug abuse patient.[facility] CompanyIn the event this information is protected by the Federal Confidentiality of Alcohol and Drug Abuse Patient Records regulations: The Federal rules restrict any use of the information to criminally investigate or prosecute any alcohol or drug abuse patient.[facility] CompanyIn the event this information is protected by the Federal Confidentiality of Alcohol and Drug Abuse Patient Records regulations: The Federal rules restrict any use of the information to criminally investigate or prosecute any alcohol or drug abuse patient.[facility] CompanyIn the event this information is protected by the Federal Confidentiality of Alcohol and Drug Abuse Patient Records regulations: The Federal rules restrict any use of the information to criminally investigate or prosecute any alcohol or drug abuse patient.[facility] CompanyIn the event this information is protected by the Federal Confidentiality of Alcohol and Drug Abuse Patient Records regulations: The Federal rules restrict any use of the information to criminally investigate or prosecute any alcohol or drug abuse patient.[facility] CompanyIn the event this information is protected by the Federal Confidentiality of Alcohol and Drug Abuse Patient Records regulations: The Federal rules restrict any use of the information to criminally investigate or prosecute any alcohol or drug abuse patient.[facility] CompanyIn the event this information is protected by the Federal Confidentiality of Alcohol and Drug Abuse Patient Records regulations: The Federal rules restrict any use of the information to criminally investigate or prosecute any alcohol or drug abuse patient.[facility] CompanyIn the event this information is protected by the Federal Confidentiality of Alcohol and Drug Abuse Patient Records regulations: The Federal rules restrict any use of the information to criminally investigate or prosecute any alcohol or drug abuse patient.[facility] CompanyIn the event this information is protected by the Federal Confidentiality of Alcohol and Drug Abuse Patient Records regulations: The Federal rules restrict any use of the information to criminally investigate or prosecute any alcohol or drug abuse patient.[facility] CompanyIn the event this information is protected by the Federal Confidentiality of Alcohol and Drug Abuse Patient Records regulations: The Federal rules restrict any use of the information to criminally investigate or prosecute any alcohol or drug abuse patient.[facility] CompanyIn the event this information is protected by the Federal Confidentiality of Alcohol and Drug Abuse Patient Records regulations: The Federal rules restrict any use of the information to criminally investigate or prosecute any alcohol or drug abuse patient.[facility] CompanyIn the event this information is protected by the Federal Confidentiality of Alcohol and Drug Abuse Patient Records regulations: The Federal rules restrict any use of the information to criminally investigate or prosecute any alcohol or drug abuse patient.[facility] CompanyIn the event this information is protected by the Federal Confidentiality of Alcohol and Drug Abuse Patient Records regulations: The Federal rules restrict any use of the information to criminally investigate or prosecute any alcohol or drug abuse patient.[facility] CompanyIn the event this information is protected by the Federal Confidentiality of Alcohol and Drug Abuse Patient Records regulations: The Federal rules restrict any use of the information to criminally investigate or prosecute any alcohol or drug abuse patient.[facility] CompanyIn the event this information is protected by the Federal Confidentiality of Alcohol and Drug Abuse Patient Records regulations: The Federal rules restrict any use of the information to criminally investigate or prosecute any alcohol or drug abuse patient.[facility] CompanyIn the event this information is protected by the Federal Confidentiality of Alcohol and Drug Abuse Patient Records regulations: The Federal rules restrict any use of the information to criminally investigate or prosecute any alcohol or drug abuse patient.[facility] CompanyIn the event this information is protected by the Federal Confidentiality of Alcohol and Drug Abuse Patient Records regulations: The Federal rules restrict any use of the information to criminally investigate or prosecute any alcohol or drug abuse patient.[facility] CompanyIn the event this information is protected by the Federal Confidentiality of Alcohol and Drug Abuse Patient Records regulations: The Federal rules restrict any use of the information to criminally investigate or prosecute any alcohol or drug abuse patient.[facility] CompanyIn the event this information is protected by the Federal Confidentiality of Alcohol and Drug Abuse Patient Records regulations: The Federal rules restrict any use of the information to criminally investigate or prosecute any alcohol or drug abuse patient.[facility] CompanyIn the event this information is protected by the Federal Confidentiality of Alcohol and Drug Abuse Patient Records regulations: The Federal rules restrict any use of the information to criminally investigate or prosecute any alcohol or drug abuse patient.[facility] CompanyIn the event this information is protected by the Federal Confidentiality of Alcohol and Drug Abuse Patient Records regulations: The Federal rules restrict any use of the information to criminally investigate or prosecute any alcohol or drug abuse patient.[facility] CompanyIn the event this information is protected by the Federal Confidentiality of Alcohol and Drug Abuse Patient Records regulations: The Federal rules restrict any use of the information to criminally investigate or prosecute any alcohol or drug abuse patient.[facility] CompanyIn the event this information is protected by the Federal Confidentiality of Alcohol and Drug Abuse Patient Records regulations: The Federal rules restrict any use of the information to criminally investigate or prosecute any alcohol or drug abuse patient.[facility] CompanyIn the event this information is protected by the Federal Confidentiality of Alcohol and Drug Abuse Patient Records regulations: The Federal rules restrict any use of the information to criminally investigate or prosecute any alcohol or drug abuse patient.[facility] CompanyIn the event this information is protected by the Federal Confidentiality of Alcohol and Drug Abuse Patient Records regulations: The Federal rules restrict any use of the information to criminally investigate or prosecute any alcohol or drug abuse patient.[facility] CompanyIn the event this information is protected by the Federal Confidentiality of Alcohol and Drug Abuse Patient Records regulations: The Federal rules restrict any use of the information to criminally investigate or prosecute any alcohol or drug abuse patient.[facility] CompanyIn the event this information is protected by the Federal Confidentiality of Alcohol and Drug Abuse Patient Records regulations: The Federal rules restrict any use of the information to criminally investigate or prosecute any alcohol or drug abuse patient.[facility] CompanyIn the event this information is protected by the Federal Confidentiality of Alcohol and Drug Abuse Patient Records regulations: The Federal rules restrict any use of the information to criminally investigate or prosecute any alcohol or drug abuse patient.[facility] CompanyIn the event this information is protected by the Federal Confidentiality of Alcohol and Drug Abuse Patient Records regulations: The Federal rules restrict any use of the information to criminally investigate or prosecute any alcohol or drug abuse patient.[facility] CompanyIn the event this information is protected by the Federal Confidentiality of Alcohol and Drug Abuse Patient Records regulations: The Federal rules restrict any use of the information to criminally investigate or prosecute any alcohol or drug abuse patient.[facility] CompanyIn the event this information is protected by the Federal Confidentiality of Alcohol and Drug Abuse Patient Records regulations: The Federal rules restrict any use of the information to criminally investigate or prosecute any alcohol or drug abuse patient.[facility] CompanyIn the event this information is protected by the Federal Confidentiality of Alcohol and Drug Abuse Patient Records regulations: The Federal rules restrict any use of the information to criminally investigate or prosecute any alcohol or drug abuse patient.[facility] CompanyIn the event this information is protected by the Federal Confidentiality of Alcohol and Drug Abuse Patient Records regulations: The Federal rules restrict any use of the information to criminally investigate or prosecute any alcohol or drug abuse patient.[facility] CompanyIn the event this information is protected by the Federal Confidentiality of Alcohol and Drug Abuse Patient Records regulations: The Federal rules restrict any use of the information to criminally investigate or prosecute any alcohol or drug abuse patient.[facility] CompanyIn the event this information is protected by the Federal Confidentiality of Alcohol and Drug Abuse Patient Records regulations: The Federal rules restrict any use of the information to criminally investigate or prosecute any alcohol or drug abuse patient.[facility] CompanyIn the event this information is protected by the Federal Confidentiality of Alcohol and Drug Abuse Patient Records regulations: The Federal rules restrict any use of the information to criminally investigate or prosecute any alcohol or drug abuse patient.[facility] CompanyIn the event this information is protected by the Federal Confidentiality of Alcohol and Drug Abuse Patient Records regulations: The Federal rules restrict any use of the information to criminally investigate or prosecute any alcohol or drug abuse patient.[facility] CompanyIn the event this information is protected by the Federal Confidentiality of Alcohol and Drug Abuse Patient Records regulations: The Federal rules restrict any use of the information to criminally investigate or prosecute any alcohol or drug abuse patient.[facility] CompanyIn the event this information is protected by the Federal Confidentiality of Alcohol and Drug Abuse Patient Records regulations: The Federal rules restrict any use of the information to criminally investigate or prosecute any alcohol or drug abuse patient.[facility] CompanyIn the event this information is protected by the Federal Confidentiality of Alcohol and Drug Abuse Patient Records regulations: The Federal rules restrict any use of the information to criminally investigate or prosecute any alcohol or drug abuse patient.[facility] CompanyIn the event this information is protected by the Federal Confidentiality of Alcohol and Drug Abuse Patient Records regulations: The Federal rules restrict any use of the information to criminally investigate or prosecute any alcohol or drug abuse patient.[facility] CompanyIn the event this information is protected by the Federal Confidentiality of Alcohol and Drug Abuse Patient Records regulations: The Federal rules restrict any use of the information to criminally investigate or prosecute any alcohol or drug abuse patient.[facility] CompanyIn the event this information is protected by the Federal Confidentiality of Alcohol and Drug Abuse Patient Records regulations: The Federal rules restrict any use of the information to criminally investigate or prosecute any alcohol or drug abuse patient.[facility] CompanyIn the event this information is protected by the Federal Confidentiality of Alcohol and Drug Abuse Patient Records regulations: The Federal rules restrict any use of the information to criminally investigate or prosecute any alcohol or drug abuse patient.[facility] CompanyIn the event this information is protected by the Federal Confidentiality of Alcohol and Drug Abuse Patient Records regulations: The Federal rules restrict any use of the information to criminally investigate or prosecute any alcohol or drug abuse patient.[facility] the event this information is protected by the Federal Confidentiality of Alcohol and Drug Abuse Patient Records regulations: The Federal rules restrict any use of the information to criminally investigate or prosecute any alcohol or drug abuse patient.[facility] CompanyIn the event this information is protected by the Federal Confidentiality of Alcohol and Drug Abuse Patient Records regulations: The Federal rules restrict any use of the information to criminally investigate or prosecute any alcohol or drug abuse patient.[facility] CompanyIn the event this information is protected by [...] any alcohol or drug abuse patient.[facility] CompanyIn the event this information is protected by the Federal Confidentiality of Alcohol and Drug Abuse Patient Records regulations: The Federal rules restrict any use of the information to criminally investigate or prosecute any alcohol or drug abuse patient.[facility] CompanyIn the event this information is protected by the Federal Confidentiality of Alcohol and Drug Abuse Patient Records regulations: The Federal rules restrict any use of the information to criminally investigate or prosecute any alcohol or drug abuse patient.[facility] CompanyIn the event this information is protected by the Federal Confidentiality of Alcohol and Drug Abuse Patient Records regulations: The Federal rules restrict any use of the information to criminally investigate or prosecute any alcohol or drug abuse patient.[facility] CompanyIn the event this information is protected by the Federal Confidentiality of Alcohol and Drug Abuse Patient Records regulations: The Federal rules restrict any use of the information to criminally investigate or prosecute any alcohol or drug abuse patient.[facility] CompanyIn the event this information is protected by the Federal Confidentiality of Alcohol and Drug Abuse Patient Records regulations: The Federal rules restrict any use of the information to criminally investigate or prosecute any alcohol or drug abuse patient.[facility] CompanyIn the event this information is protected by the Federal Confidentiality of Alcohol and Drug Abuse Patient Records regulations: The Federal rules restrict any use of the information to criminally investigate or prosecute any alcohol or drug abuse patient.[facility] CompanyIn the event this information is protected by the Federal Confidentiality of Alcohol and Drug Abuse Patient Records regulations: The Federal rules restrict any use of the information to criminally investigate or prosecute any alcohol or drug abuse patient.[facility] CompanyIn the event this information is protected by the Federal Confidentiality of Alcohol and Drug Abuse Patient Records regulations: The Federal rules restrict any use of the information to criminally investigate or prosecute any alcohol or drug abuse patient.[facility] CompanyIn the event this information is protected by the Federal Confidentiality of Alcohol and Drug Abuse Patient Records regulations: The Federal rules restrict any use of the information to criminally investigate or prosecute any alcohol or drug abuse patient.[facility] CompanyIn the event this information is protected by the Federal Confidentiality of Alcohol and Drug Abuse Patient Records regulations: The Federal rules restrict any use of the information to criminally investigate or prosecute any alcohol or drug abuse patient.[facility] CompanyIn the event this information is protected by the Federal Confidentiality of Alcohol and Drug Abuse Patient Records regulations: The Federal rules restrict any use of the information to criminally investigate or prosecute any alcohol or drug abuse patient.[facility] CompanyIn the event this information is protected by the Federal Confidentiality of Alcohol and Drug Abuse Patient Records regulations: The Federal rules restrict any use of the information to criminally investigate or prosecute any alcohol or drug abuse patient.[facility] CompanyIn the event this information is protected by the Federal Confidentiality of Alcohol and Drug Abuse Patient Records regulations: The Federal rules restrict any use of the information to criminally investigate or prosecute any alcohol or drug abuse patient.[facility] CompanyIn the event this information is protected by the Federal Confidentiality of Alcohol and Drug Abuse Patient Records regulations: The Federal rules restrict any use of the information to criminally investigate or prosecute any alcohol or drug abuse patient.[facility] CompanyIn the event this information is protected by the Federal Confidentiality of Alcohol and Drug Abuse Patient Records regulations: The Federal rules restrict any use of the information to criminally investigate or prosecute any alcohol or drug abuse patient.[facility] CompanyIn the event this information is protected by the Federal Confidentiality of Alcohol and Drug Abuse Patient Records regulations: The Federal rules restrict any use of the information to criminally investigate or prosecute any alcohol or drug abuse patient.[facility] CompanyIn the event this information is protected by the Federal Confidentiality of Alcohol and Drug Abuse Patient Records regulations: The Federal rules restrict any use of the information to criminally investigate or prosecute any alcohol or drug abuse patient.[facility] CompanyIn the event this information is protected by the Federal Confidentiality of Alcohol and Drug Abuse Patient Records regulations: The Federal rules restrict any use of the information to criminally investigate or prosecute any alcohol or drug abuse patient.[facility] CompanyIn the event this information is protected by the Federal Confidentiality of Alcohol and Drug Abuse Patient Records regulations: The Federal rules restrict any use of the information to criminally investigate or prosecute any alcohol or drug abuse patient.[facility] CompanyIn the event this information is protected by the Federal Confidentiality of Alcohol and Drug Abuse Patient Records regulations: The Federal rules restrict any use of the information to criminally investigate or prosecute any alcohol or drug abuse patient.[facility] CompanyIn the event this information is protected by the Federal Confidentiality of Alcohol and Drug Abuse Patient Records regulations: The Federal rules restrict any use of the information to criminally investigate or prosecute any alcohol or drug abuse patient.[facility] CompanyIn the event this information is protected by the Federal Confidentiality of Alcohol and Drug Abuse Patient Records regulations: The Federal rules restrict any use of the information to criminally investigate or prosecute any alcohol or drug abuse patient.[facility] CompanyIn the event this information is protected by the Federal Confidentiality of Alcohol and Drug Abuse Patient Records regulations: The Federal rules restrict any use of the information to criminally investigate or prosecute any alcohol or drug abuse patient.[facility] CompanyIn the event this information is protected by the Federal Confidentiality of Alcohol and Drug Abuse Patient Records regulations: The Federal rules restrict any use of the information to criminally investigate or prosecute any alcohol or drug abuse patient.[facility] CompanyIn the event this information is protected by the Federal Confidentiality of Alcohol and Drug Abuse Patient Records regulations: The Federal rules restrict any use of the information to criminally investigate or prosecute any alcohol or drug abuse patient.[facility] CompanyIn the event this information is protected by the Federal Confidentiality of Alcohol and Drug Abuse Patient Records regulations: The Federal rules restrict any use of the information to criminally investigate or prosecute any alcohol or drug abuse patient.[facility] CompanyIn the event this information is protected by the Federal Confidentiality of Alcohol and Drug Abuse Patient Records regulations: The Federal rules restrict any use of the information to criminally investigate or prosecute any alcohol or drug abuse patient.[facility] CompanyIn the event this information is protected by the Federal Confidentiality of Alcohol and Drug Abuse Patient Records regulations: The Federal rules restrict any use of the information to criminally investigate or prosecute any alcohol or drug abuse patient.[facility] CompanyIn the event this information is protected by the Federal Confidentiality of Alcohol and Drug Abuse Patient Records regulations: The Federal rules restrict any use of the information to criminally investigate or prosecute any alcohol or drug abuse patient.[facility] CompanyIn the event this information is protected by the Federal Confidentiality of Alcohol and Drug Abuse Patient Records regulations: The Federal rules restrict any use of the information to criminally investigate or prosecute any alcohol or drug abuse patient.[facility] CompanyIn the event this information is protected by the Federal Confidentiality of Alcohol and Drug Abuse Patient Records regulations: The Federal rules restrict any use of the information to criminally investigate or prosecute any alcohol or drug abuse patient.[facility] CompanyIn the event this information is protected by the Federal Confidentiality of Alcohol and Drug Abuse Patient Records regulations: The Federal rules restrict any use of the information to criminally investigate or prosecute any alcohol or drug abuse patient.[facility] CompanyIn the event this information is protected by the Federal Confidentiality of Alcohol and Drug Abuse Patient Records regulations: The Federal rules restrict any use of the information to criminally investigate or prosecute any alcohol or drug abuse patient.[facility] CompanyIn the event this information is protected by the Federal Confidentiality of Alcohol and Drug Abuse Patient Records regulations: The Federal rules restrict any use of the information to criminally investigate or prosecute any alcohol or drug abuse patient.[facility] CompanyIn the event this information is protected by the Federal Confidentiality of Alcohol and Drug Abuse Patient Records regulations: The Federal rules restrict any use of the information to criminally investigate or prosecute any alcohol or drug abuse patient.[facility] CompanyIn the event this information is protected by the Federal Confidentiality of Alcohol and Drug Abuse Patient Records regulations: The Federal rules restrict any use of the information to criminally investigate or prosecute any alcohol or drug abuse patient.[facility] CompanyIn the event this information is protected by the Federal Confidentiality of Alcohol and Drug Abuse Patient Records regulations: The Federal rules restrict any use of the information to criminally investigate or prosecute any alcohol or drug abuse patient.[facility] CompanyIn the event this information is protected by the Federal Confidentiality of Alcohol and Drug Abuse Patient Records regulations: The Federal rules restrict any use of the information to criminally investigate or prosecute any alcohol or drug abuse patient.[facility] CompanyIn the event this information is protected by the Federal Confidentiality of Alcohol and Drug Abuse Patient Records regulations: The Federal rules restrict any use of the information to criminally investigate or prosecute any alcohol or drug abuse patient.[facility] CompanyIn the event this information is protected by the Federal Confidentiality of Alcohol and Drug Abuse Patient Records regulations: The Federal rules restrict any use of the information to criminally investigate or prosecute any alcohol or drug abuse patient.[facility] CompanyIn the event this information is protected by the Federal Confidentiality of Alcohol and Drug Abuse Patient Records regulations: The Federal rules restrict any use of the information to criminally investigate or prosecute any alcohol or drug abuse patient.[facility] CompanyIn the event this information is protected by the Federal Confidentiality of Alcohol and Drug Abuse Patient Records regulations: The Federal rules restrict any use of the information to criminally investigate or prosecute any alcohol or drug abuse patient.[facility] CompanyIn the event this information is protected by the Federal Confidentiality of Alcohol and Drug Abuse Patient Records regulations: The Federal rules restrict any use of the information to criminally investigate or prosecute any alcohol or drug abuse patient.[facility] CompanyIn the event this information is protected by the Federal Confidentiality of Alcohol and Drug Abuse Patient Records regulations: The Federal rules restrict any use of the information to criminally investigate or prosecute any alcohol or drug abuse patient.[facility] CompanyIn the event this information is protected by the Federal Confidentiality of Alcohol and Drug Abuse Patient Records regulations: The Federal rules restrict any use of the information to criminally investigate or prosecute any alcohol or drug abuse patient.[facility] CompanyIn the event this information is protected by the Federal Confidentiality of Alcohol and Drug Abuse Patient Records regulations: The Federal rules restrict any use of the information to criminally investigate or prosecute any alcohol or drug abuse patient.[facility] the event this information is protected by the Federal Confidentiality of Alcohol and Drug Abuse Patient Records regulations: The Federal rules restrict any use of the information to criminally investigate or prosecute any alcohol or drug abuse patient.[facility] CompanyIn the event this information is protected by the Federal Confidentiality of Alcohol and Drug Abuse Patient Records regulations: The Federal rules restrict any use of the information to criminally investigate or prosecute any alcohol or drug abuse patient.[facility] CompanyIn the event this information is protected by [...] any alcohol or drug abuse patient.[facility] CompanyIn the event this information is protected by the Federal Confidentiality of Alcohol and Drug Abuse Patient Records regulations: The Federal rules restrict any use of the information to criminally investigate or prosecute any alcohol or drug abuse patient.[facility] CompanyIn the event this information is protected by the Federal Confidentiality of Alcohol and Drug Abuse Patient Records regulations: The Federal rules restrict any use of the information to criminally investigate or prosecute any alcohol or drug abuse patient.[facility] Care Teams (unrecognized sec tion and content) Team Status: Active Member Role Status Dates WALESKA Galloway Primary Care Provider Active Team Status: Inactive Member Role Status Dates WALESKA Galloway Primary Care Provider Active Start: November 30, 2024 End: November 30, 2024Pefrank Arnett NPAttending ProviderActiveStart: November 30, 2024 End: November 30, 2024 Team Status: Inactive Member Role Status Dates Gay Natalie Britt , REAL ESTATE OPERATIONS MANAGER-C Primary Care Provider Active Start: December 12, 2024 End: December 12, 2024Luiz Gee ProviderActiveStart: December 12, 2024 End: December 12, 2024 Team Status: Inactive Member Role Status Dates Gay De La Torre , REAL ESTATE OPERATIONS MANAGER-C Primary Care Provider Active Start: January 17, 2025 End: January 17, 2025Pefrank Arnett NPAttending ProviderActiveStart: January 17, 2025 End: January 17, 2025 Team Status: Active Member Role Status Dates Gay De La Torre REAL ESTATE OPERATIONS MANAGER-C Primary Care Provider Active Start: January 31, 2025 Bill Pickeringending ProviderActiveStart: January 31, 2025 Amy Pickering ProviderActiveStart: January 31, 2025 Team Status: Inactive Member Role Status Dates Gay De La Torre REAL ESTATE OPERATIONS MANAGER-C Primary Care Provider Active Start: February 14, 2025 End: February 14, 2025Pefrank Arnett , NPAttending ProviderActiveStart: February 14, 2025 [...] Role Status Dates Gay De La Torre REAL ESTATE OPERATIONS MANAGER-C Primary Care Provider Active Start: November 21, 2024 Adolfo Kang MDAttending ProviderActiveStart: November 21, 2024 Team Status: Inactive Member Role Status Dates Gay De La Torre REAL ESTATE OPERATIONS MANAGER-C Primary Care Provider Active Start: November 21, 2024 End: November 21, 2024Adolfo Kang MDAttending ProviderActiveStart: November 21, 2024 End: November 21, 2024 Team Status: Active Member Role Status Dates Gay De La Torre REAL ESTATE OPERATIONS MANAGER-C Primary Care Provider Active Start: November 22, 2024 Janes Carolyne , MDAttending ProviderActiveStart: November 22, 2024 Team Status: Active Member Role Status Mark Salomon MD Primary Care Provider Active Team Status: Inactive Member Role Status Mark Salomon MD Primary Care Provider Active Start: September 22, 2023 End: September 22, 2023Imanichole Mccall MDAttending ProviderActiveStart: September 22, 2023 End: September 22, 2023 Team Status: Inactive Member Role Status Mark Salomon MD Primary Care Provider Active Start: October 20, 2023 End: October 20, 2023Michael Blank , MDAttending ProviderActiveStart: October 20, 2023 End: October 20, 2023 Team Status: Inactive Member Role Status Mark Salomon MD Primary Care Provider Active Start: November 04, 2023 End: November 04, 2023Michael Blank , MDAttending ProviderActiveStart: November 04, 2023 End: November 04, 2023Team MemberRelationshipSpecialtyStart DateEnd Date Gay De La Torre, WEATHER TEACHER.BIRD SITTER [address] [phone] PCP - GeneralFamily Practice10/24/21Team MemberRelationshipSpecialtyStart DateEnd Date Gay De La Torre, WEATHER TEACHER.BIRD SITTER [address] [place] [address] PCP - GeneralFamily Medicine10/24/21 Manuel Ferris MD [address] [place] [address] ReferringFamily Medicine02/12/22Team MemberRelationshipSpecialtyStart DateEnd Date Manuel Ferris MD [address] [place] [address] PCP - GeneralFamily Cymgpctm99/7/22 Manuel Ferris MD [address] [place] [address] ReferringFamily Medicine02/12/22Team MemberRelationshipSpecialtyStart DateEnd Date Manuel Ferris MD [address] [facility] [place] [address] PCP - Generalmily Afzxbogy12/7/22 Manuel Ferris MD [address] [facility] [place] [address] ReferringFamily Medicine02/12/22Team MemberRelationshipSpecialtyStart DateEnd Date Manuel Ferris MD [address] [facility] [place] [address] PCP - Generalmi Oicrvzcs75/7/22 Manuel Ferris MD [address] [facility] [place] [address] ReferringFamily Medicine02/12/22Team MemberRelationshipSpecialtyStart DateEnd Date Manuel Ferris MD [address] [facility] [place] [address] PCP - Generalmily Cofhfcnh53/7/22 Manuel Ferris MD [address] [facility] [place] [address] ReferringFamily Medicine02/12/22Team MemberRelationshipSpecialtyStart DateEnd Date Manuel Ferris MD [address] [facility] [place] [address] PCP - Generalmily Vczdqtii64/7/22 Manuel Ferris MD [address] [facility] [place] [address] ReferringFamily Medicine02/12/22Team MemberRelationshipSpecialtyStart DateEnd Date Manuel Ferris MD [address] [facility] [place] [address] PCP - GeneralFamily Edjvftfm65/7/22 Manuel Ferris MD [address] [facility] [place] [address] ReferringFamily Medicine02/12/22Team MemberRelationshipSpecialtyStart DateEnd Date Manuel Ferris MD [address] [facility] [place] [address] PCP - GeneralFamily Elryqece67/7/22 Manuel Ferris MD [address] [facility] [place] [address] ReferringFamily Medicine02/12/22Team MemberRelationshipSpecialtyStart DateEnd Date Manuel Ferris MD [address] [facility] [place] [address] PCP - GeneralFamily Wzbjtsiw36/7/22 Manuel Ferris MD [address] [facility] [place] [address] ReferringFamily Medicine02/12/22Team MemberRelationshipSpecialtyStart DateEnd Date Manuel Ferris MD [address] [facility] [place] [address] PCP - GeneralFamily Znseunan46/7/22 Manuel Ferris MD [address] [facility] [place] [address] ReferringFamily Medicine02/12/22Team MemberRelationshipSpecialtyStart DateEnd Date Manuel Ferris MD [address] [facility] [place] [address] PCP - GeneralFamily Idtpmids40/7/22 Manuel Ferris MD [address] [facility] [place] [address] ReferringFamily Medicine02/12/22Team MemberRelationshipSpecialtyStart DateEnd Date Manuel Ferris MD [address] [facility] [place] [address] PCP - GeneralFamily Zputskog51/7/22 Manuel Ferris MD [address] [facility] [place] [address] ReferringFamily Medicine02/12/22Team MemberRelationshipSpecialtyStart DateEnd Date Manuel Ferris MD [address] [facility] [place] [address] PCP - GeneralFamily Kdjilnra06/7/22 Manuel Ferris MD [address] [facility] [place] [address] ReferringFamily Medicine02/12/22Team MemberRelationshipSpecialtyStart DateEnd Date Manuel Ferris MD [address] [facility] [place] [address] PCP - GeneralFamily Xkklyevu72/7/22 Manuel Ferris MD [address] [facility] [place] [address] ReferringFamily Medicine02/12/22Team MemberRelationshipSpecialtyStart DateEnd Date Manuel Ferris MD [address] [facility] [place] [address] PCP - GeneralFamily Xhqnxhee96/7/22 Manuel Ferris MD [address] [facility] [place] [address] ReferringFamily Medicine02/12/22Team MemberRelationshipSpecialtyStart DateEnd Date Manuel Ferris MD [address] [facility] [place] [address] PCP - GeneralFamily Swdspsxv73/7/22 Manuel Ferris MD [address] [facility] [place] [address] ReferringFamily Medicine02/12/22Team MemberRelationshipSpecialtyStart DateEnd Date Manuel Ferris MD [address] [facility] [place] [address] PCP - GeneralFamily Cjbvykyj06/7/22 Manuel Ferris MD [address] [facility] [place] [address] ReferringFamily Medicine02/12/22Team MemberRelationshipSpecialtyStart DateEnd Date Manuel Ferris MD [address] [facility] [place] [address] PCP - Generalmily Quxjbwlk59/7/22 Manuel Ferris MD [address] [facility] [place] [address] ReferringFamily Medicine02/12/22Team MemberRelationshipSpecialtyStart DateEnd Date Manuel Ferris MD [address] [facility] [place] [address] PCP - Generalmily Drtznxwj60/7/22 Manuel Ferris MD [address] [facility] [place] [address] ReferringFamily Medicine02/12/22Team MemberRelationshipSpecialtyStart DateEnd Date Manuel Ferris MD [address] [facility] [place] [address] PCP - GeneralFamily Yxdwoqzc77/7/22 Manuel Ferris MD [address] [place] [address] ReferringFamily Medicine02/12/22Team MemberRelationshipSpecialtyStart DateEnd Date Manuel Ferris MD [address] [place] [address] PCP - GeneralFamily Roycwhbl68/7/22 Manuel Ferris MD [address] [place] [address] ReferringFamily Medicine02/12/22Team MemberRelationshipSpecialtyStart DateEnd Date Manuel Ferris MD [address] [place] [address] PCP - GeneralFamily Wbziltfa86/7/22 Manuel Ferris MD [address] [place] [address] ReferringFamily Medicine02/12/22Team MemberRelationshipSpecialtyStart DateEnd Date Manuel Ferris MD PCP - GeneralFamily Vwjpwrkt94/7/22 Manuel Ferris MD ReferringFamily Medicine02/12/22Team MemberRelationshipSpecialtyStart DateEnd Date Manuel Ferris MD PCP - GeneralFamily Rnvstifb44/7/22 Manuel Ferris MD ReferringFamily Medicine02/12/22Team MemberRelationshipSpecialtyStart DateEnd Date Manuel Ferris MD PCP - GeneralFamily Bykttebw68/7/22 Manuel Ferris MD ReferringFamily Medicine02/12/22Team MemberRelationshipSpecialtyStart DateEnd Date Manuel Ferris MD PCP - GeneralFamily Wwuplzzd32/7/22 Manuel Ferris MD ReferringFamily Medicine02/12/22Team MemberRelationshipSpecialtyStart DateEnd Date Manuel Ferris MD PCP - GeneralFamily Olvikzxn89/7/22 Manuel Ferris MD ReferringFamily Medicine02/12/22Team MemberRelationshipSpecialtyStart DateEnd Date Manuel Ferris MD PCP - GeneralFamily Wkdcmymv46/7/22 Manuel Ferris MD ReferringFamily Medicine02/12/22Team MemberRelationshipSpecialtyStart DateEnd Date Manuel Ferris MD PCP - GeneralFamily Sfnzyxwb89/7/22 Manuel Ferris MD ReferringFamily Medicine02/12/22Team MemberRelationshipSpecialtyStart DateEnd Date Manuel Ferris MD PCP - GeneralFamily Qmvcaibg45/7/22 Manuel Ferris MD ReferringFamily Medicine02/12/22Team MemberRelationshipSpecialtyStart DateEnd Date Manuel Ferris MD PCP - GeneralFamily Yubolimh54/7/22 Manuel Ferris MD ReferringFamily Medicine02/12/22Team MemberRelationshipSpecialtyStart DateEnd Date Manuel Ferris MD PCP - Generalmily Qkjiudon74/7/22 Manuel Ferris MD ReferringFamily Medicine02/12/22Team MemberRelationshipSpecialtyStart DateEnd Date Manuel Ferris MD PCP - Generalmily Tzmbatgb23/7/22 Manuel Ferris MD ReferringFamily Medicine02/12/22Team MemberRelationshipSpecialtyStart DateEnd Date Manuel Ferris MD PCP - GeneralFamily Btpesfnl45/7/22 Manuel Ferris MD ReferringFamily Medicine02/12/22Team MemberRelationshipSpecialtyStart DateEnd Date Manuel Ferris MD PCP - GeneralFamily Bmkkfera68/7/22 Manuel Ferris MD ReferringFamily Medicine02/12/22Team MemberRelationshipSpecialtyStart DateEnd Date Manuel Ferris MD PCP - GeneralFamily Eqtefdfz83/7/22 Manuel Ferris MD ReferringFamily Medicine02/12/22Team MemberRelationshipSpecialtyStart DateEnd Date Manuel Ferris MD PCP - GeneralFamily Tiebfuph96/7/22 Manuel Ferris MD ReferringFamily Medicine02/12/22Team MemberRelationshipSpecialtyStart DateEnd Date Manuel Ferris MD PCP - Generalmily Txleamnq54/7/22 Manuel Ferris MD ReferringFamily Medicine02/12/22Team MemberRelationshipSpecialtyStart DateEnd Date Manuel Ferris MD PCP - GeneralFamily Whbgifvw53/7/22 Manuel Ferris MD ReferringFamily Medicine02/12/22Team MemberRelationshipSpecialtyStart DateEnd Date Manuel Ferris MD PCP - GeneralFamily Arotkqxd27/7/22 Manuel Ferris MD ReferringFamily Medicine02/12/22Team MemberRelationshipSpecialtyStart DateEnd Date Manuel Ferris MD PCP - GeneralFamily Cmbiqeut45/7/22 Manuel Ferris MD ReferringFamily Medicine02/12/22Team MemberRelationshipSpecialtyStart DateEnd Date Manuel Ferris MD PCP - GeneralFamily Stgyppjc47/7/22 Manuel Ferris MD ReferringFamily Medicine02/12/22Team MemberRelationshipSpecialtyStart DateEnd Date Manuel Ferris MD PCP - GeneralFamily Qbnjmznk60/7/22 Manuel Ferris MD ReferringFamily Medicine02/12/22Team MemberRelationshipSpecialtyStart DateEnd Date Manuel Ferris MD PCP - GeneralFamily Ppkzixhc76/7/22 Manuel Ferris MD ReferringFamily Medicine02/12/22Team MemberRelationshipSpecialtyStart DateEnd Date Manuel Ferris MD PCP - GeneralFamily Isesslgc23/7/22 Manuel Ferris MD ReferringFamily Medicine02/12/22Team MemberRelationshipSpecialtyStart DateEnd Date Manuel Ferris MD PCP - Generalmily Yysynmmv79/7/22 Manuel Ferris MD ReferringFamily Medicine02/12/22Team MemberRelationshipSpecialtyStart DateEnd Date Manuel Ferris MD PCP - Generalmily Psutpoir54/7/22 Manuel Ferris MD Referringmily Medicine02/12/22Team MemberRelationshipSpecialtyStart DateEnd Date Manuel Ferris MD [facility] - [facility]Kn[facility]icsly Gxjjiliz75/7/22 Manuel Ferris MD ReferringChanning Home Medicine02/12/22Team MemberRelationshipSpecialtyStart DateEnd Date Charles Nicole [address] [place] [address] PCP - General10/22/18 Michelle Jasmine, WEATHER TEACHER-BIRD SITTER [address] [place] [phone] Nurse PractitionerCardiology06/08/23Team MemberRelationshipSpecialtyStart DateEnd Date Gay De La Torre, WEATHER TEACHER-BIRD SITTER [address] [place] [address] PCP - General07/13/23 Michelle Jasmine, WEATHER TEACHER-BIRD SITTER [address] [facility] [address] [place], [place] [phone] Nurse PractitionerCardiology06/08/23 Aurora Patel MD [address] [facility] [address] [place] [address] Consulting PhysicianCardiology06/23/23Team MemberRelationshipSpecialtyStart Date End Date Manuel Ferris MD PCP - GeneralKnoxville [facility] And Clinicsly Sbqkuajl92/7/22 Manuel Ferris MD ReferringFamily Medicine02/12/22Team MemberRelationshipSpecialtyStart DateEnd Date Manuel Ferris MD PCP - GeneralFamily Cfbwgpih71/7/22 Manuel Ferris MD ReferringFamily Medicine02/12/22 Team Status: Active Member Role Status Mark Salomon MD Primary Care Provider Active Start: July 28, 2023 Virgil Green MDAttchristopher ProviderActiveStart: July 28, 2023 Team MemberRelationshipSpecialtyStart DateEnd Date Manuel Ferris MD PCP - GeneralCh[facility] Ijidaeah76/7/22 Manuel Ferris MD ReferringFapondville [facility] Medicine02/12/22 Team Status: Inactive Member Role Status Mark Salomon MD Primary Care Provider Active Start: December 16, 2023 End: December 16, 2023Zarina Mccollum ProviderActiveStart: December 16, 2023 End: December 16, 2023Team MemberRelationshipSpecialtyStart DateEnd Date Manuel Ferris MD PCP - GeneralFamily Wfcbgtrz24/7/22 Manuel Ferris MD ReferringFamily Medicine02/12/22Team MemberRelationshipSpecialtyStart DateEnd Date Manuel Ferris MD PCP - Generalmily Bqfrmrek04/7/22 Manuel Ferris MD ReferringFamily Medicine02/12/22Team MemberRelationshipSpecialtyStart DateEnd Date Manuel Ferris MD PCP - GeneralFamily Xnzzbgot03/7/22 Manuel Ferris MD ReferringFamily Medicine02/12/22Team MemberRelationshipSpecialtyStart DateEnd Date Manuel Ferris MD PCP - GeneralFamily Mgaeoznt78/7/22 Manuel Ferris MD ReferringFamily Medicine02/12/22 Team Status: Inactive Member Role Status Dates Lui Salomon MD Primary Care Provider Active Start: January 28, 2024 End: January 28, 2024Zarina Pickering ProviderActiveStart: January 28, 2024 End: January 27massiel Early , MDReferring ProviderActiveStart: January 28, 2024 End: January 28, 2024 Team Status: Inactive Member Role Status Dates Adolfo Kang MD Attending Provider Active Sta rt: February 16, 2024 End: February 15kendrick De La Torre , REAL ESTATE OPERATIONS MANAGER-CPrimary Care ProviderActive Start: February 16, 2024 End: February 16, 2024 Team Status: Active Member Role Status Dates Adolfo Kang MD Attending Provider, Other Provider Active Start: February 16, 2024 Gay De La Torre , REAL ESTATE OPERATIONS MANAGER-CPrimary Care ProviderActiveStart: February 16, 2024 Team Status: Inactive Member Role Status Dates Adolfo Kang MD Attending Provider Active Sta rt: February 28, 2024 End: February 27kendrick De La Torre , REAL ESTATE OPERATIONS MANAGER-CPrimary Care ProviderActiveStart: February 28, 2024 End: February 28, 2024Team MemberRelationshipSpecialtyStart DateEnd Date Charles Nicole MD [address] [place] [address] PCP - GeneralFamily Medicine02/09/24 Team Status: Inactive Member Role Status Dates Gay De La Torre , REAL ESTATE OPERATIONS MANAGER-C Primary Care Provider Active Start: March 16, 2024 End: March 16Luiz Park ProviderActiveStart: March 16, 2024 End: March 16, 2024Team MemberRelationshipSpecialtyStart DateEnd Charles Russell MD [address] [place] [address] PCP - GeneralFamily Medicine02/09/24Team MemberRelationshipSpecialtyStart DateEnd Charles Russell MD [address] [place] [address] PCP - Generalmily Medicine02/09/24Team MemberRelationshipSpecialtyStart DateEnd Date Charles Nicole MD [address] [place] [address] PCP - GeneralFamily Medicine02/09/24Team MemberRelationshipSpecialtyStart DateEnd Date Charles Nciole MD [address] [facility] [place] [address] PCP - GeneralFamily Medicine02/09/24Team MemberRelationshipSpecialtyStart DateEnd Date Charles Nicole MD [address] [place] [address] PCP - GeneralFamily Medicine02/09/24Team MemberRelationshipSpecialtyStart DateEnd [facility] Manuel Ferris MD PCP - GeneralFamily Lmeuxtse40/7/22 Manuel Ferris MD ReferringFamily Medicine02/12/22Team MemberRelationshipSpecialtyStart DateEnd Date Charles Nicole MD [address] [place] [address] PCP - GeneralFamily Medicine02/09/24Team MemberRelationshipSpecialtyStart DateEnd Date Charles Nicole MD [address] [place] [address] PCP - GeneralFamily Medicine02/09/24Team MemberRelationshipSpecialtyStart DateEnd Date Charles Nicole MD [address] [place] [address] PCP - GeneralFamily Medicine02/09/24Team MemberRelationshipSpecialtyStart DateEnd Date Charles Nicole MD [address] [place] [address] PCP - GeneralFamily Medicine02/09/24Team MemberRelationshipSpecialtyStart DateEnd Date Manuel Ferris MD PCP - GeneralFamily Xlinpqsc79/7/22 Manuel Ferris MD ReferringFamily Medicine02/12/22Team MemberRelationshipSpecialtyStart DateEnd Date Charles Nicole MD [address] [place] [address] PCP - GeneralFamily Medicine02/09/24Team MemberRelationshipSpecialtyStart DateEnd Date Manuel Ferris MD PCP - GeneralFamily Kpbtihng49/7/22 Manuel Ferris MD ReferringFamily Medicine02/12/22Team MemberRelationshipSpecialtyStart DateEnd Date Manuel Ferris MD PCP - GeneralFamily Rgmsjjmn32/7/22 Manuel Ferris MD ReferringFamily Medicine02/12/22Team MemberRelationshipSpecialtyStart DateEnd Date Charles Nicole MD [address] [place] [address] PCP - GeneralFamily Medicine02/09/24Team MemberRelationshipSpecialtyStart DateEnd Date Manuel Ferris MD PCP - GeneralFamily Ghbjvaya54/7/22 Manuel Ferris MD ReferringFapondville state hospital Medicine02/12/22 Manuel Ferris MD [address] [place] [address] [facility]07/06/24 Team Status: Inactive Member Role Status Dates Gay De La Torre REAL ESTATE OPERATIONS MANAGER-C Primary Care Provider Active Start: July 10, 2024 End: July 10, 2024Adolfo Kang MDAttchristopher ProviderActiveStart: July 10, 2024 End: July 10, 2024Team MemberRelationshipSpecialtyStart DateEnd Date Manuel Ferris MD PCP - Generalmily Ancnonbu64/7/22 Manuel Ferris MD ReferringFamily Medicine02/12/22 Manuel Ferris MD [address] [place] [address] [facility]erring[facility]07/06/24Team MemberRelationshipSpecialtyStart DateEnd Date Manuel Ferris MD PCP - GeneralChanning Home Lyjlbmfi50/7/22 Manuel Ferris MD ReferringFamily Medicine02/12/22 Manuel Ferris MD [address] [place] [address] ReferringFamily Medicine07/06/24 Team Status: Inactive Member Role Status Dates Gay De La Torre , REAL ESTATE OPERATIONS MANAGER-C Primary Care Provider Active Start: July 19, 2024 End: July 19, 2024Shana Kang MDAttending ProviderActiveStart: July 19, 2024 End: July 19, 2024Team MemberRelationshipSpecialtyStart DateEnd Date Gay De La Torre MD [facility] [place] [address] Referring PhysicianFamily Medicine07/18/24Team MemberRelationshipSpecialtyStart DateEnd Date Manuel Ferris MD PCP - GeneralFamily Jvgrnywi01/7/22 Manuel Ferris MD ReferringFamily Medicine02/12/22 Manuel Ferris MD [facility] [place] [address] ReferringFamily Medicine07/06/24Team MemberRelationshipSpecialtyStart DateEnd Date Gay De La Torre MD [address] [place] [address] Referring Physicianmily Medicine07/18/24Team MemberRelationshipSpecialtyStart DateEnd Date Gay De La Torre, WEATHER TEACHER-BIRD SITTER [address] [place] [address] PCP - General07/13/23 Michelle Jasmine, WEATHER TEACHER-BIRD SITTER Nurse PractitionerCardiology06/08/23 Aurora Patel MD Consulting PhysicianCardiology06/23/23 Team Status: Active Member Role Status Dates Gay De La Torre REAL ESTATE OPERATIONS MANAGER-C Primary Care Provider Active Start: July 19, 2024 Adolfo Kang MDAttending Provider, Other ProviderActiveStart: July 19, 2024 Team Status: Inactive Member Role Status Dates aGy De La Torre NP-C Primary Care Provider Active Start: July 31, 2024 End: July 31, 2024Shana Kang , MDAttending ProviderActiveStart: July 31, 2024 End: July 31, 2024Team MemberRelationshipSpecialtyStart DateEnd Date Manuel Ferris MD PCP - GeneralFamily Mndhfaku11/7/22 Manuel Ferris MD ReferringFamily Medicine02/12/22 Manuel Ferris MD [address] [place] [address] ReferringFamily Medicine07/06/24Team MemberRelationshipSpecialtyStart DateEnd Date Manuel Ferris MD PCP - GeneralFamily Nylqfxwp86/7/22 Manuel Ferris MD ReferringFamily Medicine02/12/22 Manuel Ferris MD [address] [place] [address] ReferringNorth[facility]07/06/24Team MemberRelationshipSpecialtyStart DateEnd Date Manuel Ferris MD PCP - GeneralChanning Home Bsyfnoir93/7/22 Manuel Ferris MD Referringmily Medicine02/12/22 Manuel Ferris MD [address] [place] [address] Referring[facility]07/06/24 Team Status: Inactive Member Role Status Dates Gay De La Torre REAL ESTATE OPERATIONS MANAGER-C Primary Care Provider Active Start: August 22, 2024 End: August 22, 2024Adolfo Kang MDAttchristopher ProviderActiveStart: August 22, 2024 End: August 22, 2024Team MemberRelationshipSpecialtyStart DateEnd Date Gay De La Torre MD [address] [phone] Referring [facility]07/18/24Team MemberRelationshipSpecialtyStart DateEnd Date Manuel Ferris MD PCP - GeneralChanning Home Nifzsmtt36/7/22 Manuel Ferris MD ReferringChanning Home Medicine02/12/22 Manuel Ferris MD [address] [place] [address] Referring[facility]07/06/24Team MemberRelationshipSpecialtyStart DateEnd Date Manuel Ferris MD PCP - GeneralFamily Kyrustiy06/7/22 Manuel Ferris MD ReferringFamily Medicine02/12/22 Manuel Ferris MD [address] [place] [address] ReferringFamily Medicine07/06/24Team MemberRelationshipSpecialtyStart DateEnd Date Gay De La Torre MD [address] [place] [address] Referring PhysicianChanning Home Medicine07/18/24Team MemberRelationshipSpecialtyStart DateEnd Date Gay De La Torre MD [address] [place] [address] Referring PhysicianChanning Home Medicine07/18/24Team MemberRelationshipSpecialtyStart DateEnd Date Manuel Ferris MD PCP - GeneralFamily Cqcwslrm34/7/22 Manuel Ferris MD ReferringFamily Medicine02/12/22 Manuel Ferris MD [address] [place] [address] ReferringFamily Medicine07/06/24Team MemberRelationshipSpecialtyStart DateEnd Date Manuel Ferris MD PCP - GeneralFamily Ixtxklay06/7/22 Manuel Ferris MD ReferringFamily Medicine02/12/22 Manuel Ferris MD [address] [place] [address] ReferringFamily Medicine07/06/24Team MemberRelationshipSpecialtyStart DateEnd Date Manuel Ferris MD PCP - GeneralFamily Fiiptytj56/7/22 Manuel Ferris MD ReferringFamily Medicine02/12/22 Manuel Ferris MD [address] [phone] ReferringFami Medicine07/06/24Team MemberRelationshipSpecialtyStart DateEnd Date Manuel Ferris MD PCP - GeneralFamily Zstpitty43/7/22 Manuel Ferris MD ReferringFamily Medicine02/12/22 Manuel Ferris MD [address] [id number] ReferringFamily Medicine07/06/24Team MemberRelationshipSpecialtyStart DateEnd Date Manuel Ferris MD PCP - GeneralFamily Cmuehijs65/7/22 Manuel Ferris MD ReferringFamily Medicine02/12/22 Manuel Ferris MD [address] [place] [address] ReferringFamily Medicine07/06/24Team MemberRelationshipSpecialtyStart DateEnd Date Manuel Ferris MD PCP - GeneralFamily Lcesrmcg63/7/22 Manuel Ferris MD ReferringFamily Medicine02/12/22 Manuel Ferris MD [address] [place] [address] ReferringFami Medicine07/06/24Team MemberRelationshipSpecialtyStart DateEnd Date Manuel Ferris MD PCP - GeneralFamily Llgalhve12/7/22 Manuel Ferris MD ReferringFamily Medicine02/12/22 Manuel Ferris MD [address] [phone] ReferringFamily Medicine07/06/24Team MemberRelationshipSpecialtyStart DateEnd Date Manuel Ferris MD PCP - GeneralFamily Zqjmmoaa77/7/22 Manuel Ferris MD ReferringFamily Medicine02/12/22 Manuel Ferris MD [address] [facility] [place] [address] ReferringFamily Medicine07/06/24Team MemberRelationshipSpecialtyStart DateEnd Date Manuel Ferris MD PCP - GeneralFamily Vyhwelvj28/7/22 Manuel Ferris MD ReferringFamily Medicine02/12/22 Manuel Ferris MD [address] [facility] [place] [address] ReferringFamily Medicine07/06/24Team MemberRelationshipSpecialtyStart DateEnd Date Manuel Ferris MD PCP - GeneralFamily Fygtvdss87/7/22 Manuel Ferris MD ReferringFamily Medicine02/12/22 Manuel Ferris MD [address] [place] [address] ReferringFamily Medicine07/06/24Team MemberRelationshipSpecialtyStart DateEnd Date Manuel Ferris MD PCP - GeneralFamily Oyrbgfqi36/7/22 Manuel Ferris MD ReferringFamily Medicine02/12/22 Manuel Ferris MD [address] [facility] [place] [address] ReferringFamily Medicine07/06/24Team MemberRelationshipSpecialtyStart DateEnd Date Manuel Ferris MD PCP - GeneralChanning Home Zapwjfeb61/7/22 Manuel Ferris MD ReferringFactly Medicine02/12/22 Manuel Ferris MD [address] [place] [address] Referring[facility]07/06/24Team MemberRelationshipSpecialtyStart DateEnd Date Manuel Ferris MD PCP - [facility] Ftbkkwky01/7/22 Manuel Ferris MD ReferringChanning Home Medicine02/12/22 Manuel Ferris MD [address] [place] [address] Referring[facility]07/06/24 Team Status: Inactive Member Role Status Dates Gay De La Torre NP-C Primary Care Provider Active Start: September 06, 2024 End: September 06, 2024Zarina Pickering ProviderActiveStart: September 06, 2024 End: September 06, 2024 Team Status: Inactive Member Role Status Dates Gay De La Torre NP-Ananya Primary Care Provider Active Start: November 13, 2024 End: November 13, 2024Zarina Pickering ProviderActiveStart: November 13, 2024 End: November 13, 2024Team MemberRelationshipSpecialtyStart DateEnd Date Gay De La Torre MD [address] [place], [place] [id number] Referring [facility]07/18/24Team MemberRelationshipSpecialtyStart End Manuel Ferris MD PCP - Generalmily Cmfzahbl37/7/22 Manuel Ferris MD ReferringFamily Medicine02/12/22 Manuel Ferris MD [address] [place] [address] [facility]erring[facility]07/06/24Team MemberRelationshipSpecialtyStart DateEnd Formerly [facility] Manuel Ferris MD PCP - GeneralChanning Home Jibfxzxk10/7/22 Manuel Ferris MD Referringmily Medicine02/12/22 Manuel Ferris MD [address] [place] [address] [facility]erring[facility]07/06/24Team MemberRelationshipSpecialtyStart End Manuel Ferris MD PCP - GeneralChanning Home Dodhmbef79/7/22 Manuel Ferris MD ReferringFamily Medicine02/12/22 Manuel Ferris MD [address] [place] [address] Referring[facility]07/06/24 Team Status: Inactive Member Role Status Dates Gay De La Torre REAL ESTATE OPERATIONS MANAGER-C Primary Care Provider Active Start: January 31, 2025 End: January 31, 2025Zarina Pickering ProviderActiveStart: January 31, 2025 End: January 31, 2025Team MemberRelationshipSpecialtyStart [place] [address] [place] [address] Referring [facility]07/18/24Team MemberRelationshipSpecialtyStart DateEnd Date Gay De La Torre MD [address] [place] [address] Referring [facility]07/18/24Team MemberRelationshipSpecialtyStart DateEnd Date Gay De La Torre MD [address] [place], [place] [phone] Referring [facility]07/18/24 Team Status: Inactive Member Role Status Dates Terence Blum MD Attending Provider Active Sta rt: March 02, 2025 End: March 02, 2025Pafrancesco De La Torre NP-[facility] Instituteimary Care ProviderActiveStart: March 02, 2025 End: March 02, 2025Team MemberRelationshipSpecialtyStart DateEnd Date Gay De La Torre MD [address] [place], [place] [phone] Referring [facility]07/18/24 Team Status: Inactive Member Role Status [...] Role/Relationship Status Dates Gay De La Torre REAL ESTATE OPERATIONS MANAGER-C Primary Care Provider Active Start: January 17, 2025 End: January 17, 2025Pefrank Arnett NPAttending ProviderActiveStart: January 17, 2025 End: January 17, 2025 Team Status: Active Member Role/Relationship Status Dates Gay De La Torre REAL ESTATE OPERATIONS MANAGER-C Primary Care Provider Active Start: January 31, 2025 Adolfo Kang MDAttending ProviderActiveStart: January 31, 2025 Adolfo Kang MDOther ProviderActiveStart: January 31, 2025 Team Status: Inactive Member Role/Relationship Status Dates Gay De La Torer REAL ESTATE OPERATIONS MANAGER-C Primary Care Provider Active Start: February 14, 2025 End: February 14, 2025Pefrank Arnett , NPAttending ProviderActiveStart: February 14, 2025 End: February 14, 2025 Team Status: Inactive Member Role/Relationship Status Dates Mathew Ji MD Attending Provider Active St art: February 26, 2025 End: February 26, 2025 Team Status: Inactive Member Role/Relationship Status Dates Bandar Portillo APRN Attending Provider Active Start: February 28, 2025 End: February 28, 2025Pafrancesco De La Torre , REAL ESTATE OPERATIONS MANAGER-CPrimary Care ProviderActiveStart: February 28, 2025 End: February 28, 2025 Team Status: Inactive Member Role/Relationship Status Dates Terence Blum MD Attending Provider Active Sta rt: March 02, 2025 End: March 02, 2025Pafrancesco De La Torre , REAL ESTATE OPERATIONS MANAGER-CPrimary Care ProviderActiveStart: March 02, 2025 End: March 02, 2025 Team Status: Inactive Member Role/Relationship Status Dates Jose Perez DO Attending Provider Active S tart: March 03, 2025 End: March 03, 2025 Team Status: Inactive Member Role/Relationship Status Dates Gay De La Torre REAL ESTATE OPERATIONS MANAGER-C Attending Provider Active Start: March 09, 2025 End: March 09, 2025 Team Status: Active Member Role/Relationship Status Dates NON STAFF Primary Care Provider Active Team Status: Inactive Member Role/Relationship Status Dates Adolfo Kang MD Attending Provider Active Sta rt: March 13, 2025 End: March 13, 2025NON STAFFPrunc health rockinghamry Care ProviderActiveStart: March 13, 2025 End: March 13, 2025Team MemberRelationshipSpecialtyStart DateEnd Gay De La TorreTRUE [address] [place] [address] PCP - GeneralNurse Practitioner - Donfxg48/4/24 Inactive Administered Medications - up to 3 [...] BE BASED ON THE PRIMARY CLINICAL RECORDS. [employer] provides no warranty or guarantee of the accuracy or completeness of information in this document.
== END 2025-03-22 08:46 | disposition home or self-care (01) ==
LOC: CT 08:46
PROVIDERS: PCP Nurse Practitioner Family
DX: M25.551 Pain in right hip (principal); M25.552 Pain in left hip; R10.9 Unspecified abdominal pain; K76.0 Fatty (change of) liver, not elsewhere classified; N28.1 Cyst of kidney, acquired; E04.1 Nontoxic single thyroid nodule
CPT/HCPCS: 73522; 74160; 76536; Q9967

== ENCOUNTER 2025-03-22 08:48 | Outpatient (OUT) | payer OTHER, SELFPAY ==
--- OUTSIDE RECORDS SUMMARY | 2025-03-14 12:00 | XMS_ITS | Encounter Summary ---
Author Organization [facility] Address [address] [place] [address] Care Team Providers Care Vice President Talent Management Name Role Phone Gay De La Torre CNP Primary Care Provider + Reason for Referral * Adjunctive Therapy (Routine) - New RequestSpecialtyDiagnoses / Procedures Referred By ContactReferred To ContactPharmacy Diagnoses Tobacco use disorder Colleen Hamilton MD [address] [place] [address] Phone: tel: fax: Referral IDStatusReasonStart DateExpiration DateVisits RequestedVisits [id number]/ Reason for Visit * ReasonCommentsNew PatientPilonidal cyst with abscessReferral from Dr. Gay De La Torre- [facility]. Patient denies fever, nausea, vomiting or diarrheaNo current complaints of SOB, cough or congestion Encounter Details DateTypeDepartmentCare Team (Latest Contact Info)Wvtoiyivuff60/22/2025 12:00 PM EDTOffice Visit [facility] Disease [address] [phone] Colleen Hamilton MD [address] [phone] Nipple discharge in female (Primary Dx); Type 2 diabetes mellitus with other specified complication, unspecified whether 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 card tender insulin use; Obesity with serious comorbidity in pediatric patient, unspecified obesity class, unspecified obesity type; IgG deficiency; Recurrent infections; Pilonidal abscess; Tobacco use disorder Social History Tobacco UseTypesPacks/DayYears UsedDateSmoking Tobacco: Every DayCigarettes Smokeless Tobacco: Never Tobacco Cessation:Ready to Q uit: No; Counseling Given: No CommentsNoSex and Gender InformationValueDate RecordedSex Assigned at BirthNot on fileLegal VeqGyhqrr54/04/2024 9:51 AM ESTGender IdentityNot on file Sexual OrientationNot on filedocumented as of this encounter Last Filed Vital Signs Vital SignReadingTime TakenCommentsBlood Qxjnfdxo279/8203/14/2025 11:52 AM EDT Zxdhf186203/14/2025 11:52 AM RMLSalixusoacu07 ??C (98.6 ??F)03/14/2025 11:52 AM EDTRespiratory Wyuh5559 11:52 AM EDTOxygen Shvckmvgaz35%03/14/2025 11:52 AM EDTInhaled Oxygen Concentration--Qzmlxb489.8 kg (290 lb 9.6 oz)03/14/2025 11:52 AM EDTHeight--Body Mass Index--documented in this encounter Progress Notes * Stacy Boyer - 03/14/2025 12:00 PM EDT Review of Systems A complete review of systems are negative except those consistent with HPI No fevers, chills or sweats No cough, chest pain No dysphagia, odynophagia No abdominal pain, nausea, vomiting, diarrhea No dysuria, frequency, hematuria No headache, dizziness, focal neurologic complaints No ear pain No sinus pain No rash No weight loss No joint or muscular pain Recent travel history? No * Colleen Hamilton MD - 03/14/2025 12:00 PM EDT HPI Ariadna Paniagua 44 y.o. female presents today for New Patient (Pilonidal cyst with abscess/Referralfrom Dr. Gay De La Torre- [facility]. /Patient denies fever, nausea, vomiting or diarrhea/Nocurrent complaints of SOB, cough or congestion/) Patient has a history of infected pilonidal cyst area and referred to Infectious Disease. According to medical records she had a pilonidal cyst debridement procedures and then cyst and sinus removal >10 years (13 years) previous with recurrent problems in this area in late January Patient was seen by a surgeon on 02/28/2025 at an outside facility finding a sacral area 1 x 3 cm erythematous raised mass without drainage. Went to surgery with Dr. Blum 03/02 for I&D, grew Serratia resistant to FQ. Rx by surgery with cefazidime until 03/13 q12. Also hx of prevotella from OR. Currently packing the wound, and reported as healing at first visit. Breast nipple bilateral green discharge and seen by lunchroom attendant and culture Pseudomonas oryzihabitus (October 2024). Ongoing drainage reported. No current redness or tenderness on 1st evaluation. No hot tub. Hxof mammogram and US in 2024 without issue reported. Thrush hx with nystatin prn Hx of C difficile 2022. She reports getting dificid with abx courses. Patient has a history of being on Benlysta and steroids with a history of lupus. 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 Patient has follow up by Hematology/Oncology for low IgG with IVIG infusions qmonth. The patient has follow up by Rheumatology for history of lupus on benlysta, hydroxychloroquine, steroids pred 10 mg po daily ([facility]) Hx of 12/2024: Tb and HBV and HCV wnl. The patient also is followed by Dermatology for hidradenitis treated with clindamycin lotions and Hibiclens. Allergies/intolerances: doxy, clindamycin (c diff), sulfa (LN swelling). She states she cannot takeFQ due to a concern for Emanuel danlos syndrome (not confirmed) ID clinic 03/14/25 patient states she is here for 3 different issues including a sacral pilonidal cyst with 2 different bacteria that grew and recurrent drainage of her breast nipples for many months. Patient today has no fevers chills or sweats that is documented. Patient history was reviewed. Very limited data is present at this visit except for a 3 page referral that did not have any details of recent surgery or cultures. Patient did provide some of the culture data on her cell phone to me.We have requested outside medical records including from history of recent infusions that were ordered by another provider ROS Review of Systems A complete review of systems are negative except those consistent with HPI No fevers, chills or sweats No cough, chest pain No dysphagia, odynophagia No abdominal pain, nausea, vomiting, diarrhea No dysuria, frequency, hematuria No headache, dizziness, focal neurologic complaints No ear pain No sinus pain No rash No weight loss No joint or muscular pain Recent travel history? No HISTORY/ALLERGIES/MEDS Allergies[1] Past Medical History[2] Past Surgical History[3] Social History Socioeconomic History Marital status: Single Spouse name: Not on file Number of children: Not on file Years of education: Not on file Highest education level: Not on file Occupational History Not on file Tobacco Use Smoking status: Every Day Current packs/day: 0.50 Types: Cigarettes Smokeless tobacco: Never Substance and Sexual Activity Alcohol use: Not on file Drug use: Never Sexual activity: Not on file Other Topics Concern Not on file Social History Narrative Not on file Social Drivers of Health Financial Resource Strain: Not on file Food Insecurity: No Food Insecurity (04/06/2024) Received from [facility] Hunger Screening Within the past 12 months we worried whether our food would run out before we got money to buy more.: Never True Within the past 12 months the food we bought just didn't last and we didn't have money to get more.: Never True Transportation Needs: Not on file Physical Activity: Not on file Stress: Not on file Social Connections: Not on file Personal Safety: Unknown (07/15/2023) Received from [facility] Safety & Environment Fear of Current or Ex-Partner: Not on file Emotionally Abused: Not on file Physically Abused: Not on file Sexually Abused: Not on file Physically or Sexually Abused: Not on file Housing Stability: Not on file No family history on file. Current Medications[4] EXAM BP 138/82 (BP Location: Right arm, BP Position: Sitting) Pulse 95 Temp 98.6 ??F (37 ??C) (Temporal) Resp 18 Wt 131.8 kg (290 lb 9.6 oz) SpO2 96% Smoking Status Every Day Physical Exam Vitals and nursing note reviewed. Constitutional: General: She is not in acute distress. Appearance: Normal appearance. She is obese. HENT: Head: Normocephalic and atraumatic. Comments: No thrush Mouth/Throat: Pharynx: Oropharynx is clear. No oropharyngeal exudate. Eyes: Extraocular Movements: Extraocular movements intact. Conjunctiva/sclera: Conjunctivae normal. Pupils: Pupils are equal, round, and reactive to light. Cardiovascular: Rate and Rhythm: Normal rate and regular rhythm. Pulses: Normal pulses. Heart sounds: Normal heart sounds. No murmur heard. Pulmonary: Effort: Pulmonary effort is normal. No respiratory distress. Breath sounds: Normal breath sounds. No rhonchi or rales. Abdominal: General: Bowel sounds are normal. There is no distension. Palpations: Abdomen is soft. Tenderness: There is no abdominal tenderness. There is no guarding. Genitourinary: Comments: No CVA or suprapubic tenderness Musculoskeletal: General: No swelling or tenderness. Normal range of motion. Cervical back: Normal range of motion and neck supple. No rigidity. Skin: General: Skin is warm and dry. Coloration: Skin is not jaundiced. Findings: No rash. Comments: Striae on abdominal area Bilateral breast with no abscess noted or mastitis. She can express blackish drainage ?Blood , slight green tinge? Sacral/lower lumbar open wound with packing. No signs of ID at this time. Neurological: General: No focal deficit present. Mental Status: She is alert. Psychiatric: Mood and Affect: Mood normal. Behavior: Behavior normal. Thought Content: Thought content normal. LABS CBC No results found for: WBC , WBCCOUNT , WBCFETAL , HGB , HCT , PLATELET , MCV EDIF No results found for: RBCDISTRIBU , GRNLOCYT , LYMPHOCYT , MONOCYTELEC , EOSINOPHILS , BASOPHILS , GRNLOCTYABS , LYMPHOCYTABS , MONOSABSOLU , EOSINOPHLABS , BASOPHILSABS , PLATELET , MNPLATVOLME , MPV EDIF No results found for: RBCDISTRIBU , GRNLOCYT , LYMPHOCYT , MONOCYTELEC , EOSINOPHILS , BASOPHILS , GRNLOCTYABS , LYMPHOCYTABS , MONOSABSOLU , EOSINOPHLABS , BASOPHILSABS , PLATELET , MNPLATVOLME , MPV ESR No results found for: RBCDISTRIBU , GRNLOCYT , LYMPHOCYT , MONOCYTELEC , EOSINOPHILS , BASOPHILS , GRNLOCTYABS , LYMPHOCYTABS , MONOSABSOLU , EOSINOPHLABS , BASOPHILSABS , PLATELET , MNPLATVOLME , MPV No results found for: SODIUM , POTASSIUM , CHLORIDE , CO2 , BUN , CREATSERUM , GLUCOSE No results found for: CRP No results found for: RESULTCULT .No results found for: GLUCOSE .No results found for: CALCIUM No results found for: TOTALPROTEIN , ALBUMIN , ALBUMINALB , ALBUMINFLD , ALBUMINCSF , ALBUMINSERUM No results found for: BILITOTAL No results found for: BUN No results found for: CREATSERUM , CREATURINE , CREATADULT , CREATFLUID No results found for: SODIUM , POTASSIUM , CHLORIDE , CO2 No results found for: ALKPHOS No results found for: HAV , HAVIGM , HEPATITISB , HBCAB , HBEA , HCV No results found for: ALT , TRANSFERASEA , AST , GGT , GAMMAGT , ALKPHOS , BILITOTAL , BILIDIRECT No orders to display IMAGING No results found. Diagnosis/Plan: There are no diagnoses linked to this encounter. Pilonidal cyst - Patient has a pilonidal cyst in her lower back sacral area with a history of resection 13 years ago per report at 1st ID consult with recurrence status post February 2025 I and D by Dr. Blum general surgery that grew Serratia and prevotella. Apparently the patient received ceftazidime twice daily by her surgeon at an infusion center which finished. Unfortunately it was only given twice daily despite a time dependent antibiotic being used - Cyst area appears to be healing with no evidence of infection on today's exam - Recommend close wound care and monitoring and that she should immediately seek care if there is any signs or symptoms of infection which were reviewed with her. Breast nipple discharge - This appears more like a bloody fluid coming from her nipples - Patient has ultrasound and mammogram concern for possible cystic area however no reported malignancy. Would recommend continued close follow up with her primary and Gynecology in this regard for close monitoring - History in approximately October of 2024 growing a species of Pseudomonas - Repeat culture was taken although the fluid did not appear infected per se. She had no evidence of an abscess or mastoiditis on history or physical during our initial consult History of recurrent infections - Discussed with her glucose control, stopped smoking, the fact that her immunosuppressive agents can increase infections, recommend excellent wound care and hygiene. Patient continues on IVIG to improve for IgG levels which is also possibly contributing to recurrent infection issues. Would recommend that she stay up-to-date on vaccines through her primary provider. Allergies - Patient states there several antibiotics but she can not take due to her concerns regarding her medical/family history and these include clindamycin, doxycycline, quinolones(patient states she doesnot take because of concern she may have a type of EDS and is on hydroxychloroquine that can cause issues with rhythms/QTC of heart) and sulfa. History of C diff - Would recommend trying to avoid antibiotics as much as possible to try to reduce risk of recurrence - If antibiotics are needed then consideration for secondary prophylaxis as reflected in the guidelines Tobacco use - We discussed during this visit that smoking cessation would be extremely important for her overall and health as well as to reduce problems with wound healing and infections. I have sent in a tobacco cessation referral Lupus - Patient has follow up by Rheumatology [facility] in his on prednisone, hydroxychloroquine and Benlysta Opportunistic infection screening - Patient did have hepatitis-C, hepatitis-B and TB testing. Would recommend routine checking through her clothes drier repairer History of low IVIG - Follow up by Hematology - Received monthly infusions of IVIG Diabetes - Recommend excellent glucose control in the setting of concern for infections and wound healing Return to clinic in 1-2 weeks, earlier if there is any infection concerns. I also discussed with her that if you are concerns for infection given her immunosuppressed state she should immediately seek care including in the emergency room if there is no provider otherwise available. Recommended that full set of medical records be sent to better understand her history to be able toreview previous lab, culture data. Case required an extensive review of her history [id number] aswell as through available records although further records are needed. Thank you for this consultation. Please note Portions of this note utilized [employer] dictation software, please excuse any typographical or grammatical errors. [1] Allergies Allergen Reactions Codeine Shortness of Breath Other Reaction(s): jittery Doxycycline Other Reaction(s): Unknown Omeprazole Other Reaction(s): Other Pantoprazole Other Reaction(s): Other Sulfa Antibiotics Swelling Trimethoprim Other Reaction(s): unknown Clindamycin Other Reaction(s): Unknown Patient states it was a long time ago and she did not have a severe reaction. She does not believe she is allergic, she just thinks she just experienced side effects. Other Reaction(s): Unknown Reaction Other Reaction(s): Unknown, Unknown Reaction Other Reaction(s): Unknown Patient states it was a long time ago and she did not have a severe reaction. She does not believe she is allergic, she just thinks she just experienced side effects. OtherReaction(s): Unknown Reaction Patient states it was a [...] thinks she just experienced side effects. Sulfamethoxazole-Trimethoprim Dyspepsia and Swelling Patient states it was a long time ago and she did not have a severe reaction. She does not believe she is allergic, she just thinks she just experienced side effects. [2] No past medical history on file. [3] No past surgical history on file. [4] Current Outpatient Medications: ALPRAZolam 0.25 MG tablet, Take 1 tablet by mouth daily., Disp: , Rfl: Benlysta 200 MG/ML Solution Auto-injector, Inject 200 mg under the skin every 7 days., Disp: , Rfl: cephALEXin 500 MG capsule, Take 1 capsule by mouth 3 (three) times a day., Disp: , Rfl: Chlorhexidine Gluconate 4 % Solution, Apply 1 Application topically daily as needed for Other., Disp: , Rfl: clindamycin 1 % Lotion lotion, Apply 1 Application topically daily., Disp: , Rfl: Clobetasol Propionate 0.05 % Shampoo, Apply 1 Application topically 3 times weekly. APPLY TO SCALP IN SHOWER 3 TO 4 TIMES A WEEK, Disp: , Rfl: Clotrimazole 10 MG Christel, 1 tablet by Mouth/Throat route 3 times daily., Disp: , Rfl: Diclofenac sodium 1 % Gel gel, Apply 2 g topically 4 times daily., Disp: , Rfl: DULoxetine [address] Particles capsule DR, Take 1 capsule by mouth daily., Disp: , Rfl: Ergocalciferol 1.25 MG (29472 UT) capsule, Take 1 capsule by mouth once a week., Disp: , Rfl: fidaxomicin 200 MG tablet, Take 1 tablet by mouth 2 times daily., Disp: , Rfl: fluocinonide 0.05 % Solution solution, Apply 1 Application topically 2 times daily., Disp: , Rfl: hydroCODone-acetaminophen 5-325 MG tablet, Take 1 tablet by mouth every 6 hours as needed., Disp: ,Rfl: hydroCODone-acetaminophen 7.5-325 MG tablet, Take 1 tablet by mouth every 6 hours as needed., Disp:, Rfl: KlonoPIN 0.5 MG tablet, Take 1 tablet by mouth daily., Disp: , Rfl: Lo Loestrin Fe 1 MG-10 MCG / 10 MCG tablet, Take 1 tablet by mouth daily., Disp: , Rfl: Methocarbamol 750 MG tablet, Take 1 tablet by mouth 2 times daily., Disp: , Rfl: Nystatin 013811 UNIT/ML oral suspension, Swish and spit 4 mL Every 6 hours., Disp: , Rfl: Pantoprazole [address] tablet DR, Take 1 tablet by mouth daily., Disp: , Rfl: pilocarpine 5 MG tablet, Take 1 tablet by mouth 3 (three) times a day., Disp: , Rfl: Pravastatin 20 MG tablet, Take 1 tablet by mouth daily., Disp: , Rfl: predniSONE 10 MG tablet, Take 1 tablet by mouth As directed. Take 40mg daily x 3, decrease by 5mg every 3days until taking 10mg daily with food thereafter (no oral nsaids), Disp: , Rfl: Thiamine 100 MG tablet, Take 1 tablet by mouth daily., Disp: , Rfl: Tirzepatide (Mounjaro) 2.5 MG/0.5ML Solution Auto-injector, Inject 2.5 mg under the skin every 7 days., Disp: , Rfl: triamcinolone 10 MG/ML injection, 0.25 mL by Intralesional route once., Disp: , Rfl: Trulicity 1.5 MG/0.5ML Solution Auto-injector injection, Inject 0.5 mL under the skin every 7 days., Disp: , Rfl: acetaminophen 500 MG tablet, Take 2 tablets by mouth every 6 hours as needed for Mild Pain., Disp: , Rfl: aspirin 81 MG Chew Tab chewable tablet, Chew 1 tablet daily., Disp: , Rfl: Baclofen 5 MG tablet, Take 1 tablet by mouth 3 times daily., Disp: , Rfl: Cetirizine 10 MG tablet, Take 1 tablet by mouth daily., Disp: , Rfl: faMOTIdine 20 MG tablet, Take 1 tablet by mouth at bedtime., Disp: , Rfl: fluticasone 50 MCG/ACT Suspension nasal spray, 2 sprays by Nasal route As directed. Please see attached for detailed directions, Disp: , Rfl: Folic acid 1 MG tablet, Take 1 tablet by mouth daily., Disp: , Rfl: Hydroxychloroquine Sulfate 400 MG tablet, Take 1 capsule by mouth daily., Disp: , Rfl: Ibuprofen 200 MG tablet, Take 4 tablets by mouth Every 8 hours., Disp: , Rfl: Metoprolol 50 MG tab regular release, Take 1 tablet by mouth 2 times daily., Disp: , Rfl: omeprazole [address] capsule, Take 1 capsule by mouth daily., Disp: , Rfl: pregabalin 75 MG capsule, Take 1 capsule by mouth daily as needed for Other., Disp: , Rfl: documented in this encounter Plan of Treatment NameTypePriorityAssociated DiagnosesOrder ScheduleAMB REFERRAL TO SMOKING CESSATIONOutpatient ReferralRoutine Tobacco use disorder Ordered: 03/14/2025documented as of this encounter Procedures Procedure NamePriorityDate/TimeAssociated DiagnosisCommentsCULTURE WOUNDTo03/14/2025 1:00 PM EDT Nipple discharge in female CULTURE RZNEMBdyey39/22/2025 1:00 PM EDT Nipple discharge in female documented in this encounter Results * CULTURE WOUND (03/14/2025 1:00 PM EDT)ComponentValueRef RangeTest Method Analysis TimePerformed AtPathologist SignatureSPECIMEN DESCRIPTIONWOUNDMCKITRICK HOSPITAL - [address] - BUCYRUSCOMMENTRIGHT NIPPLE DISCHARGEMCKITRICK HOSPITAL - [address] - BUCYRUSGRAM STAINNOGALION COMMUNITY [facility] [address] Comment: WBC'S SEEN NO ORGANISMS SEEN QUANTITATIONLIGHT GROWTH[address] RESULT-CULTSTAPHYLOCOCCUS EPIDERMIDIS[address]Comment:Testing performed at [place], [place] [address]Hahuzy Lcjpej8203/18/202590 [address]Comment:FINALORGANISM IDENTIFIEDSTAPHYLOCOCCUS EPIDERMIDIS[address]pecimen (Source)Anatomical Location / LateralityCollection Method / VolumeCollection TimeReceived TimeWound SPECIMEN COLLECTION BY DRAINAGE / Adkutxi5903/14/2025 1:00 PM EDT1 1:17 PM EDT Narrative OrganismAntibioticMethodSusceptibilityStaphylococcus epidermidisClindamycinMIC (UG/ML/INTERP) >=8 RESISTANT: Resistant Staphylococcus epidermidisErythromycinMIC (UG/ML/INTERP) >=8 RESISTANT: Resistant Staphylococcus epidermidisGentamicinMIC (UG/ML/INTERP) <=0.5 SUSCEPTIBLE: Sensitive Staphylococcus epidermidisPENICILLIN GMIC (UG/ML/INTERP) >=0.5 RESISTANT: Resistant Staphylococcus epidermidisRifampinMIC (UG/ML/INTERP) <=0.5 SUSCEPTIBLE: Sensitive Staphylococcus epidermidisTetracyclineMIC (UG/ML/INTERP) 2 SUSCEPTIBLE: Sensitive Staphylococcus epidermidisTrimethoprim/SulfamethoxazolMIC (UG/ML/INTERP) 80 RESISTANT: Resistant Staphylococcus epidermidisVancomycinMIC (UG/ML/INTERP) 1 SUSCEPTIBLE: Sensitive Staphylococcus epidermidisLevofloxacinMIC (UG/ML/INTERP) >=8 RESISTANT: Resistant Staphylococcus epidermidisOxacillinMIC (UG/ML/INTERP) >=4 RESISTANT: Resistant Staphylococcus epidermidisLinezolidMIC (UG/ML/INTERP) 2 SUSCEPTIBLE: Sensitive Staphylococcus epidermidisInducible Clindamycin ResistanceMIC (UG/ML/INTERP) NEGATIVE: Susceptible Comment:STAPHYLOCOCCUS EPIDERMIDISAuthorizing ProviderResult TypeResult Status Colleen Hamilton MDMICROBIOLOGY - GENERAL ORDERABLESFinal ResultPerforming OrganizationAddressCity/State/ZIP CodePhone Number [address] [address] [facility] - [address] - [place] [address] [place] [address] * CULTURE WOUND (03/14/2025 1:00 PM EDT)ComponentValueRef RangeTest Method Analysis TimePerformed AtPathologist SignatureSPECIMEN DESCRIPTIONWOUNDMCKITRICK HOSPITAL - [address] - BUCYRUSCOMMENTLEFT NIPPLE DISCHARGEMCKITRICK HOSPITAL - [address] - BUCYRUSGRAM STAINNO[address] Comment: WBC'S SEEN NO ORGANISMS SEEN RESULT-CULTNO GROWTH [address]Comment:Testing performed at [place] [address] Report Nighbq3703/16/[address] Comment:FINALSpecimen (Source)Anatomical Location / LateralityCollection Method / VolumeCollection TimeReceived TimeWoundSPECIMEN COLLECTION BY DRAINAGE / Pixmwno3603/14/2025 1:00 PM EDT1 1:18 PM EDT Narrative Authorizing ProviderResult TypeResult StatusNancy F [place] MDMICROBIOLOGY - GENERAL ORDERABLESFinal ResultPerforming OrganizationAddressCity/State/ZIP Code Phone Number [address] [address] [facility] - [address] - [facility] [address] [place] [address] documented in this encounter Visit Diagnoses Diagnosis Nipple discharge in female- Primary Other sign and symptom in breast Type 2 diabetes mellitus with other specified complication, unspecified whether mcc insulin use Obesity with serious comorbidity in pediatric patient, unspecified obesity class, unspecified obesity type IgG deficiency Other selective immunoglobulin deficiencies Recurrent infections Unspecified infectious and parasitic diseases Pilonidal abscess Pilonidal cyst with abscess Tobacco use disorder documented in this encounter Care Teams Team MemberRelationshipSpecialtyStart DateEnd Date Gay De La Torre, CHIEF PORT DIRECTOR [address] [place] [address] PCP - GeneralNurse Practitioner - Mekafl09/4/24documented as of this encounter
--- OUTSIDE RECORDS SUMMARY | 2025-03-22 08:50 | XMS_ITS | Clinical Summary ---
Author Organization [facility] Address [address] [place] [address] Care Team Providers Care Laundry Manager Name Role Phone Gay De La Torre CNP Primary Care Provider [phone] Allergies Active AllergyReactionsCriticalityNoted NyfxKcfixougKzwtdszbhyZjhzn07/16/2024 GnrhbnxxrnkhPfhoy56/16/7012QyozuwecuwxzxzuqGndzv27/08/2015 Other Reaction(s): gi Other Reaction(s): lymph swelling CAUSED ENLARGED LYMPH NODES Sulfamethoxazole-TrimethoprimOther,GI intolerance,TnqxrzxePax41/03/2016 Patient states it was a long time [...] auto-injector Inject 200mg (1 pen) subcutaneously once aklrqv3202/04/2023ctive Active Problems ProblemNoted DateDiagnosed ZrgtAcobtbzd07/15/2024uct ectasia of breast 03/07/2024GERD (gastroesophageal reflux disease)03/07/2024Insulin resistance 03/07/2024Lumbosacral rqaesnrhyuc92/15/2024bdominal crpjjsek59/15/2024. difficile erydljkf44/15/2024Facet arthritis of lumbar nhbojh6912/15/2023ischarge from cfpvfo7811/15/2023Irregular periods/menstrual ipsrpe4211/15/2023egenerative disc disease, yioswy8211/08/2023History of vitamin D fvdbfpgixb96/14/2024Hoarse 08/10/2023ure hypercholesterolemia, giiuraitfps22/19/2024Thyroid nodule 08/10/2023AC (premature atrial contraction)07/13/2023aroxysmal supraventricular lomigttuqim35/20/2024Shortness of ltyvmo5207/13/2023ervical pgqlwqalemzvi65/13/2024hronic xksnzcpzjblfwkihsv48/13/2024urrent smoker 07/06/2023 Overview (03/07/2024): Added secondary to documentation in Social History. Added secondary to documentation in Social History. Cytomegalovirus rcpkkbqei04/13/2024isturbance of skin ahykwutlg12/13/2024 Enthesopathy of hip yxqvbu2307/06/2023LPRD (laryngopharyngeal reflux disease) 07/06/2023Lumbosacral radiculopathy at L507/06/20232666Bdjrvgl21/13/2024Oral lesion 07/06/2023ain, hip07/06/2023hronic fatigue and sqagaip5706/10/2023nxiety 06/09/20233712Konhrjejb13/17/2024epression, vrypoynth77/17/2024Essential dakfkrppdudk17/17/2024utonomic mvfmfaabhma77/09/3611Nldwfhoid31/09/2024 Htqtlywpchl38/09/2024ilateral wrist pain02/04/2023Long term current use of systemic cguzawsb24/14/2023Raynaud's disease without yzcptgqo89/14/2023Steroid- induced tcfnegyzlwgj64/14/2023Excessive and frequent menstruation with irregular cycle09/24/2022Obesity, Class III, BMI 40-49.9 (morbid obesity)09/07/2022NA /23/2023Long-term use of high-risk yourpoqdjc52/23/2023Obstructive sleep apnea mfurzzqc15/28/2022omnolence, peupmyg5705/20/2022nemia, unspecified 03/11/2022Megaloblastic anemia due to vitamin B12 /12/2022iscoid lupus deabbwnsuygyt48/24/2022Vitamin D vknximmoqz12/14/2021ilateral leg fwqulgmr14/13/2021hronic pain of toes of both feet03/05/2021levated sed rate 03/05/2021Family history of Crohn's rrgdxpv3303/05/2021Hair loss03/05/2021ong- term use of Brqygdfif06/13/2021Rash and nonspecific skin bfrhpvoj28/13/2021 Secondary osteoarthritis of multiple sites03/05/2021welling of lymph nodes 03/05/20215224Lwakhe53/08/2015Chronic bilateral low back pain with bilateral jfxocpvw55/08/3796Flbenxolyngzrj33/08/2015Vitamin B12 pbmojsmiap89/08/2015 Family History Medical HistoryRelationNameCommentsHeart attackMaternal GrandfatherHeart failure [...] InformationValueDate RecordedSex Assigned at BirthNot on fileLegal SupUalvvp72/30/2022 8:07 PM ESTGender IdentityNot on fileSexual OrientationNot on file Last Filed Vital Signs Vital SignReadingTime TakenCommentsBlood Fdxtgxom188/8210/ 10:12 AM EDT Pbavf349603/08/2024 10:12 AM EDTTemperature--Respiratory Rate--Oxygen Saturation 98%03/08/2024 10:00 AM EDTInhaled Oxygen Concentration--Zbagqm072 kg (275 lb) 03/08/2024 10:00 AM OMJPqiebz436.2 cm (5' 7 )03/08/2024 10:00 AM EDTBody Mass Index43.0703/08/2024 10:00 AM EDT Plan of Treatment Health MaintenanceDue DateLast DoneCommentsDepression Yncxzwjht53/14/1993 Varicella Vaccines (1 of 2 - 13+ 2-dose series)1993Hepatitis B Vaccines (1 of 3 - 19+ 3-dose series)10/05/1999Pneumococcal Vaccine: Pediatrics (0 to 5 Years) and At-Risk Patients (6 to 64 Years) (1 of 2 - PCV)10/05/1999Adult Cfnlktn7510/04/2002HPV Vaccines (1 - 3-dose SCDM series)10/05/2007HPV/Cotest 2010Cervical Cancer Vlgbowrze07/12/2011Pap Smear Errhqgatv26/14/2021OVID-19 Vaccine ( season), 02/08/2022, 05/26/2021, Additional history existsInfluenza Vaccine (#1) 01/22/2025Zoster Vaccines (1 of 2)2030HIB VaccinesAged OutNo longer eligible based on patient's age to complete this topicIPV VaccinesAged OutNo longer eligible based on patient's age to complete this topicMeningococcal B VaccineAged OutNo longer eligible based on patient's age to complete this topic Meningococcal VaccineAged OutNo longer eligible based on patient's age to complete this topicRotavirus VaccinesAged OutNo longer eligible based on patient's age to complete this topic Insurance Care Teams Team MemberRelationshipSpecialtyStart DateEnd Date Gay De La Torre CNP [facility] [facility], [facility] [address] [place], [place] [id number] PCP - GeneralFamily Fjikcnvu14/9/24
--- OUTSIDE RECORDS SUMMARY | 2025-03-22 08:50 | XMS_ITS | Clinical Summary ---
Author Organization [facility] Address [address] [place] [address] Phone Care Team Providers Care Pest Management Supervisor Name Role Phone Mitali, Michelle London DEVELOPMENT ADVISOR-INFORMATION SYSTEMS OPERATOR Unavailable [phone] Kenneth Patel MD Unavailable [phone] Gay De La Torre DEVELOPMENT ADVISOR-INFORMATION SYSTEMS OPERATOR Primary Care Provider Allergies Active AllergyReactionsCriticalityNoted DateCommentsDoxycyclineOther,UnknownLow 01/19/2022 Patient states it was a long time ago and she did not have a severe reaction. She does not believe she is allergic, she just thinks she just experienced side effects. Sulfamethoxazole-TrimethoprimSwelling,HsakzNhr23/03/2016 Patient states it was a long time [...] a week10/23/2022ctive ergocalciferol (Vitamin D-2) 1.25 MG (69548 UT) capsule Take 1 capsule (50,000 Units) [...] tablet /ctive Active Problems ProblemNoted DateDiagnosed DateCurrent jzmkli9907/13/2023aroxysmal supraventricular xbkhmyiwcpj94/20/2024Shortness of jtoaif5907/13/2023AC (premature atrial contraction)07/13/20234621Mpuctre96/17/2024epression, recurrent 06/09/20234090Yenkfsvpk91/17/2024Essential aqhlmrntcwqd37/17/2024utonomic /09/2024Obesity, Class III, BMI 40-49.9 (morbid obesity)09/07/2022 Obstructive sleep apnea yjxslqjv11/28/2022nemia, kymhmjqcmen79/19/2022iscoid lupus qngeculbcuzhl41/24/2022Vitamin D owpvbtoysu34/14/2021hronic bilateral low back pain with bilateral lwsqsabe65/08/0104Nxpzbbydkansgh81/08/2015Vitamin B12 kdacfxcqbn74/08/2015 Resolved Problems ProblemNoted DateDiagnosed DateResolved CvggIrhwzczmznb93/09/202403/09/2024 Family History Medical HistoryRelationNameCommentsNo Known ProblemsBrotherCancerFatherCrohn's diseaseMotherHeart diseaseSisterRelationNameStatusCommentsBrotherFatherMother Sister Social History Tobacco UseTypesPacks/DayYears UsedDateSmoking Tobacco: Every DayCigarettes Smokeless Tobacco: Never Tobacco Cessation:Ready to Q uit: No; Counseling Given: Yes Alcohol UseStandard Drinks/WeekCommentsNever0 (1 standard drink = 0.6 oz pure alcohol)CommentsUnknownSex and Gender InformationValueDate RecordedSex Assigned at BirthNot on fileLegal VdxIxjqxd79/25/2022 9:42 PM ESTGender Identity Ewzcix8802/21/2024 7:13 PM EDTSexual OrientationNot on file Last Filed Vital Signs Vital SignReadingTime TakenCommentsBlood Wheoeuyv765/6003 3:06 PM EST Csxeg305907/26/2024 3:06 PM ESTTemperature--Respiratory Rate--Oxygen Saturation-- Inhaled Oxygen Concentration--Wcsuyh080 kg (286 lb 12.8 oz)07/26/2024 3:06 PM VLFCviafl079.2 cm (5' 7 )07/26/2024 3:06 PM ESTBody Mass Index44.9207/26/2024 3:06 PM EST Plan of Treatment DateTypeDepartmentCare Team (Latest Contact Info)Vipxogdvbwy31/05/2026 11:00 AM ESTOffice Visit [facility] [address] [facility] [address] [place] [address] Lois Arguelles MD [address] [facility] [address] [place] [address] Health MaintenanceDue DateLast DoneCommentsHIV Zavvxvjaq63/14/1981Lipid Panel 1980MMR Vaccines (1 of 1 - Standard series)1981Hepatitis C Screening 1998Hepatitis B Vaccines (1 of 3 - 19+ 3-dose series)10/05/1999 Pneumococcal Vaccine: Pediatrics and At-Risk Adult Patients (1 of 2 - PCV) 10/05/1999Zoster Vaccines (1 of 2)10/05/1999HPV/Fcajoi3310/04/2001DTaP/Tdap/Td Vaccines (1 - Tdap)2002HPV Vaccines (1 - Risk 3-dose Standard series) 10/05/2007Diabetes Vmwtzkegv562COVID-19 Vaccine (3 - Pfizer risk series)/07/2022, 02/08/2022Influenza Vaccine (#1)2024 Wojavzkov59/14/021514/Yearly Adult Xozjaqwv16/15/648117/5Cervical Cancer Tbqxpsmjz07/14/2028Pap Smear801/, 05/04/2008HIB Vaccines Aged OutNo longer eligible [...] complete this topic Procedures Procedure NamePriorityDate/TimeAssociated DiagnosisCommentsCONVERTED CANCER PROGRAM DIRECTOR MOYPHMYUHemsnss03/12/2008 12:00 AM EST from Last 3 Months or Most Recently Relevant to Health Maintenance Results * CONVERTED CANCER PROGRAM DIRECTOR CYTOLOGY (05/04/2008 12:00 AM EST)ComponentValueRef RangeTest MethodAnalysis [...] findings. ? - Signed by: JESSICA ORTIZ [facility] ?05/09/08 Electronically Signed Out By [facility], Cytology/ By the signature on this report, [...] Source of Specimen A: Unknown Part Type [facility] Department of Pathology [address] COPATHCONVERTED FINAL DIAGNOSISSatisfactory for evaluation. Transformation [...] findings. ? - Signed by: JESSICA ORTIZ [facility] ?05/09/08 [facility] COPATHCONVERTED CLINICAL DIAGNOSIS-HISTORY- HISTORY & [...] ORTIZ ? SOUT ?05/09/08 1524 ??ANGELMEANTORIE ?- [place] Conversion Report - [facility] COPATHCONVERTED FINAL REPORT PDF LINK TO COPY AND PASTE \copathshare\copath\PDF \[id number].pdfLIFECARE HOS[facility]ITAL OF MECHANICSBUR[facility] COPATHSpecimen (Source) Anatomical Location / LateralityCollection Method / VolumeCollection Time Received TimeUnrecognized Part Type 11:28 AM EST Narrative Authorizing ProviderResult TypeResult StatusCopath ConversionLAB CYTOLOGY ORDERABLESFinal ResultPerforming OrganizationAddressCity/State/ZIP CodePhone Number [facility] COPATH [address] [place] [address] from Last 3 Months or Most Recently Relevant to Health Maintenance Insurance MemberSubscriberPlan / Payer (Effective 2017-Present)Name:Ariadna Paniagua Relation to Subscriber:SelfName:Ariadna arias Payer ID:[id number] (NAIC) Group ID:[id number] Type:Not on file Address: [address] [place] [id number] Care Teams Team MemberRelationshipSpecialtyStart DateEnd Date Gay De La Torre, DEVELOPMENT ADVISOR-INFORMATION SYSTEMS OPERATOR [address] [place] [address] PCP - General07/13/23 Michelle Jasmine, DEVELOPMENT ADVISOR-INFORMATION SYSTEMS OPERATOR Nurse PractitionerCardiology06/08/23 Kenneth Patel MD Consulting PhysicianCardiology06/23/23
--- OUTSIDE RECORDS SUMMARY | 2025-03-22 08:50 | XMS_ITS | Clinical Summary ---
Author Organization [facility] [facility] Address [id number] [place] [address] Care Team Providers Care Do All Operator Name Role Phone Unavailable Primary Care Provider Unavailabl e Allergies Active AllergyReactionsCriticalityNoted LwlzUmboiyopVdrlsvdtggaEpb33/12/2022 Other Reaction(s): Unknown, Unknown Reaction Other Reaction(s): [...] just thinks she just experienced side effects. Dxiqfaw4105/31/2014 Other Reaction(s): jittmayra, Other: See Comments, Trouble [...] as needed.Active Active Problems ProblemNoted DateDiagnosed DateLupus msrcbkuwmehet39/14/2024Sacroiliitis 04/06/2024hronic pain bebnxxgq36/14/2024aynaud's disease without gangrene 04/06/2024 Assessment & Plan (04/06/2024 10:10 AM EST): We will get lower extremity PVR with cold immersion test. I counseled her on the diagnosis and identifying and avoiding provoking factors. I also counseled her that managing her SLE and autoimmune connective tissue disorders is balderrama for managing her Raynaud's. All her questions were answered. Degenerative disc disease, dppmwa0211/08/2023urrent kpnfrv9407/06/2023 Overview (04/06/2024): Added secondary to documentation in Social History. Added secondary to documentation in Social History. Cytomegalovirus sxpcatkvz59/13/2024hronic fatigue and qnbezet65/ Usjrbgdta99/17/4375Lezxmfr11/17/2024utonomic /09/2024utoimmune mmodhgh0206/01/2023Systemic lupus ncruodiwjeswj20/03/1272Nissckwdmpmz17/03/2022 Rheumatoid bzlycatuo65/05/2022ilateral leg egkeivml10/13/2021 Social History Tobacco UseTypesPacks/DayYears UsedDateSmoking Tobacco: Every DayCigarettes Smokeless Tobacco: Never Tobacco Cessation:Ready to Q uit: Not Asked; Counseling Given: Not Answered ChildcareAnswerDate VpbtfotcFbinjbvonYrdnruz51/12/2019EmploymentAnswerDate KlpcrgzcZykvkqwaaiJhltxuw60/12/2019Hunger ScreeningAnswerDate RecordedWithin the past 12 months we worried whether our food would run out before we got money to buy more.Never True04/06/2024Within the past 12 months the food we bought just didn't last and we didn't have money to get more.Never True04/06/2024 CommentsUnknownSex and Gender InformationValueDate RecordedSex Assigned at Not on fileLegal ZliZansde28/09/2017 3:06 PM ESTGender IdentityNot on fileSexual OrientationNot on file Last Filed Vital Signs Vital SignReadingTime TakenCommentsBlood Rjrbfyfr051/80106/06/2023 10:00 AM EST Gkwto011004/06/2024 10:00 AM RTQFrixoqntyrq33.1 ??C (97 ??F)04/06/2024 10:00 AM ESTRespiratory Rate--Oxygen Bdpfgpudcu86%04/06/2024 10:00 AM ESTInhaled Oxygen Concentration--Ptaaqc010.7 kg (275 lb)04/06/2024 10:00 AM SRUAzazir896.2 cm (5' 7 )04/06/2024 10:00 AM ESTBody Mass Index43.0704/06/2024 10:00 AM EST Plan of Treatment Health MaintenanceDue DateLast DoneCommentsTobacco Dztceqqito48/14/1981 Depression Acbiynbxe07/14/1993Adult BMI Follow Up Plan1998DTaP,Tdap and Td Vaccines (1 - Tdap)10/05/1999COVID-19 Vaccine (6 - 2025-26 season)2025 02/23/2023, 02/08/2022, 05/26/2021, Additional history existsInfluenza Vaccine 01/22/2025dult BMI Ljkrmnkqe64Tobacco Sflytfjkn49/14/2025 04/06/2024ap Smear Medical Devices Not on file Insurance
--- OUTSIDE RECORDS SUMMARY | 2025-03-22 08:50 | XMS_ITS | Clinical Summary ---
Author Organization [facility] Address [address], [address] [place] [address] Care Team Providers Care Residential Collections Name Role Phone Gay De La Torre APRN - [employer] Primary Care Provide r Allergies Active AllergyReactionsCriticalityNoted DateComments Sulfamethoxazole-Chfhsxknuhxp00/17/2021 Medications MedicationSigDispense QuantityRefillsLast FilledStart DateEnd DateStatus famotidine [...] times daily07/29/2020ctive Active Problems ProblemNoted DateDiagnosed DateRheumatoid smoxefjup41/05/2022 Social History Tobacco UseTypesPacks/DayYears UsedDateSmoking Tobacco: Every DaySmokeless Tobacco: NeverAlcohol UseStandard Drinks/WeekCommentsNever0 (1 standard drink = 0.6 oz pure alcohol)CommentsUnknownSex and Gender InformationValueDate RecordedSex Assigned at BirthNot on fileLegal DtwZhnaco49/11/2013 11:20 PM EST Gender IdentityNot on fileSexual OrientationNot on file Last Filed Vital Signs Vital SignReadingTime TakenCommentsBlood Uyegnnlx729/6501 2:38 PM EST Fppys037306/03/2021 2:38 PM UBORjkjykmatbw82 ??C (98.6 ??F)06/03/2021 2:38 PM EST Respiratory Mbeh795010/07/2020 10:45 AM EDTOxygen Dzqfkrdmbw52%10/07/2020 12:45 PM EDTInhaled Oxygen Concentration--Kyhgun397 kg (231 lb 7.2 oz)06/03/2021 2:38 PM OZJDtfusv843.2 cm (5' 7 )10/07/2020 9:01 AM EDTBody Mass Index36.25010/07/2020 9:01 AM EDT Plan of Treatment Not on file Insurance Advance Directives * Full Code (Latest Code Status on File) Date ActivatedDate InactivatedComments10/07/2020 8:32 AM10/08/2020 2:43 AM Care Teams Team MemberRelationshipSpecialtyStart DateEnd Date Gay De La Torre, SPECIAL EFFECTS ARTIST - [employer] [address] [place] [phone] [facility] - General06/03/21
--- OUTSIDE RECORDS SUMMARY | 2025-03-22 08:50 | XMS_ITS | Clinical Summary ---
Author Organization [facility] Address [address] [place] [address] Care Team Providers Care Lay Out Former Name Role Phone Gay De La Torre MD Unavailable [phone] Allergies Active AllergyReactionsCriticalityNoted PqnvWsnqdrpcBkkfxvezpacShf89/12/2022 Other Reaction(s): Unknown Patient states it was a long time ago and she did not have a severe reaction. ??She does not believe she is allergic, she just thinks she just experienced side effects. Other Reaction(s): Unknown Reaction Yubfoae5405/31/2014 Other Reaction(s): Other: See Comments, Trouble breathing ?... Make her feel ??Jittery. ??OTHERWISE, NO SOB/WHEEZING, and NO DYSPHAGIA, NO URTICARIA, NO ANGIOEDEMA NoihxgnmkxgMvktocf33/17/7642RcpywPlyfVdj85/08/2015 Other Reaction(s): Rash Patient states it was a long time ago and she did not have a severe reaction. ??She does not believe she is allergic, she just thinks she just experienced side effects. Kcfpfvwkgb39/16/2024 Other Reaction(s): Other Rwkpaburxwau87/16/2024 Other Reaction(s): Other Brpsdbjlbkwzcixv10/17/2023 Other Reaction(s): gi Other Reaction(s): lymph swelling Sulfamethoxazole-JdfbujvmwsodHwrqtswaTok94/03/2016 Other Reaction(s): Other, sick Patient states it was a long time ago and she did not have a severe reaction. ??She does not believe she is allergic, she just thinks she just experienced side effects. Pkvtffxwapbb00/17/2023 Other Reaction(s): gi Other Reaction(s): lymph swelling Medications MedicationSigDispense QuantityRefillsLast FilledStart DateEnd DateStatus Triamcinolone Acetonide 0.025 % lotion 1 mtoebolafup30/31/2023ctive ibuprofen 200 MG tablet every 8 (eight) [...] the morning.01/15/2023ctive ergocalciferol (Vitamin D2) 1.25 MG (13670 UT) capsule Take 50,000 Units by mouth [...] evening/night time, 30 day supply 20 g 11007/15/2023ctive fluticasone (Flonase) 50 MCG/ACT nasal spray Indications:Eustachian tube dysfunction, bilateral,Non-recurrent acute serous otitis media of both earsAdminister 2 sprays into each nostril in the morning and 2 sprays before bedtime. Shake gently. Before first use, prime pump. After use, clean tip and replace cap.. 16 g 1204Active diclofenac sodium 1 % gel 4Active pantoprazole (ProtoNix) 20 MG EC tablet Take [...] evening/night time, 30 day supply 45 g 1105Active cephalexin (Keflex) 500 MG capsule 5Active azaTHIOprine (Imuran) 50 MG tablet Take 150 mg by mouth DailyDiscontinued(Therapy completed) baclofen (Lioresal) 5 MG tablet Indications:Lumbosacral radiculopathy at L5,Degenerative disc disease, lumbar, Cervical radiculopathy at C5TAKE 1 TABLET BY MOUTH IN THE MORNING, EVENING AND BEFORE BEDTIME 270 tablet Discontinued(Therapy completed) norethindrone-ethinyl estradiol-iron (Lo Loestrin Fe) 1 MG-10 MCG / 10 MCG tablet Indications:Menorrhagia with regular cycleTake 1 tablet by mouth Daily Take 1 tablet by mouth daily 28 tablet 111Discontinued(Therapy completed) Trulicity 1.5 MG/0.5ML solution auto-injector INJECT SUBCUTANEOUSLY ONCE A WEEK LVZVTJXC74Discontinued (Therapy completed)Hospital, Clinic, or Other Facility Administered Medication Ordered DoseRouteFrequencyStart DateEnd DateStatus triamcinolone acetonide (Kenalog) injection 2.5 mg Indications:Hidradenitis suppurativa,Pain2.5 mgINTRA-VHUCQOQlff27/03/2025tive Active Problems ProblemNoted DateDiagnosed DateAbdominal mass03/14/20259834Wwdvktfl01/22/2025 Diuxpvplggyp41/22/8200Skqqifycz99/22/2025Fatty liver03/14/2025Leukocytosis 03/14/2025Nontoxic single thyroid kxnyeo2203/14/2025Type 2 diabetes mellitus 03/14/2025Pilonidal izsogoe1702/28/2025Lupus axwdqlnpenfnl86/14/2024Sacroiliitis 04/06/2024Frequent dvaorsssna14/09/9376Hqjdsmpbqzufleqywtqqd47/09/2024. difficile emasoqpo62/15/9666Vwsjyzhy88/15/2024uct ectasia of tqrtac5403/07/2024 GERD (gastroesophageal reflux disease)03/07/2024Insulin ylujlehbbl47/15/2024 Facet arthritis of lumbar ctcgaj7512/15/2023Nipple faksjltlv84/24/2024Irregular periods/menstrual nhhskg5611/15/2023egenerative disc disease, suzmna4611/08/2023 Tsprqlyarmxp38/17/2024History of vitamin D eywxffgdsi48/14/2024rediabetes 08/24/2023ure hypercholesterolemia, gzbbfugnirn12/19/6497Lrsrul68/19/2024 Thyroid fumlmk2608/10/2023Shortness of aeymmv6907/13/2023aroxysmal supraventricular /20/2024AC (premature atrial contraction)07/13/2023ervical fosvdiewtadrj19/13/2024Lumbosacral radiculopathy at L507/06/2023hronic iubdbndcmvbxdgqwrr29/13/2024urrent lzitrx0907/06/2023 Overview (07/06/2023): Added secondary to documentation in Social History. Tobacco use zwjuxjhh04/13/2024ytomegalovirus avpgigpsh24/13/2024isturbance of skin jbjvxvewm12/13/2024Enthesopathy of hip jqmegb9807/06/2023LPRD (laryngopharyngeal reflux disease)07/06/20237618Yvmqpjs17/13/2024Oral lesion 07/06/2023ain, hip07/06/2023hronic fatigue and tjselrj7206/10/2023nxiety 06/09/2023epression, qprxgcsxy53/17/2024Essential xixsananpdqw56/17/2024 Autoimmune sjqidnb7006/01/20232488Kmzjjywyaaiy47/09/2024utonomic dysfunction 06/01/20236704Jcgcavspm75/09/4206Rtmnuedyxda38/09/2024Nonintractable episodic cmggwygy84/09/2024ilateral wrist pain02/04/2023Long term current use of systemic nboajzxy46/14/2023Steroid-induced yuogamnlwpna19/14/2023Raynaud's disease without asgrcynl17/14/2023Excessive and frequent menstruation with irregular cycle09/24/2022Obesity, Class III, BMI 40-49.9 (morbid obesity) 09/07/2022NA nodylzyq02/23/2023Long-term use of high-risk fqyjorkfwj88/23/2023 Obstructive sleep apnea sbvbwudv01/28/2022omnolence, yiqpjcf5405/20/2022nemia, lxiptruibgi26/19/2022Megaloblastic anemia due to vitamin B12 deficiency 03/04/2022iscoid lupus ajpdsppzaxdsy27/24/2022Vitamin D ynannvwfrl57/14/2021 Bilateral leg zenobpdj97/13/2021hronic pain of toes of both feet03/05/2021 Elevated sed rate03/05/2021High total serum IgM03/05/2021Family history of Crohn's bscfmmg0203/05/2021Hair loss03/05/2021ong-term use of Ohsvmfkjf82/13/2021 Rash and nonspecific skin bpxoekji41/13/2021econdary osteoarthritis of multiple sites03/05/2021welling of lymph nodes03/05/20212046Yolthx10/08/2015Hyperlipidemia 05/31/2014Vitamin B12 nllvkpnamg10/08/2015 Encounters DateTypeDepartmentCare SqkkOxioghpypus41/21/2025Telephone [facility] [address] [place] [phone] [place], [place] Final path came [facility]03/07/2025Orders Only [facility] [address] [place] [phone] Terence Blum MD 03/06/20258513Fjccib78/13/2025Telephone [facility] [address] [phone] [place], [place] Questions on medications.03/02/2025External Result Encounter [facility] External Department Unsolicited Terence Blum MD 02/28/2025 9:30 AM EDTConsult [facility] [address] [place] [address] [phone] Terence Blum MD Pilonidal abscess (Primary Dx); Pilonidal cyst02/28/20257609Wpwaym84/07/4026Vzxyvm66/06/5941Ihopfc06/03/2025Travel 02/19/20257953Mxigto78/24/2025 3:20 PM EDTOffice Visit [facility] [address] [place] [phone] Cynthia English MD Pilonidal cyst (Primary Dx); Hidradenitis dzoeeihonfo70/24/2025amboo flowsheet [facility] [address] [place] [address] Cynthia English MD 02/14/20255174Hiftse04/09/2025Results Follow-Up [facility] [address] [place] [address] [place] [address] Sabi Barker LPN Left breast US swzuglk5701/26/2025 11:45 AM EDTAncillary Procedure [facility] [address] [place] [address] Other benign mammary dysplasias of left lyajhi2201/26/2025Travelfrom Last 3 Months Family History Medical HistoryRelationNameCommentslung issueChild1 son with lung issue, 3 daughtersNo Known ProblemsDaughter 1CancerFatherWilliamPancreatitisFatherWilliam Stomach cancerFatherWilliamDiabetesMaternal GrandmotherClelauraHeart failure Maternal GrandmotherClelauraRheum arthritisMaternal GrandmotherClelauraCrohn's diseaseMotherSallyThyroid diseaseMotherSallyNo Known KbqpzunxPapziw3Cchl disease SonRelationNameStatusCommentsChildAliveDaughter 2Mexzm6 daughtersDaughter 2Alive Daughter 3AliveFatherWilliamDeceasedMaternal GrandmotherClelauraMotherSallyAlive Mother's SisterDeceasedSisterAlive1 sisterSonAlive1 son Social History Tobacco UseTypesPacks/DayYears UsedDateSmoking Tobacco: Every IgaUzniobdblx233.8 Started: 05/24/1995Smokeless Tobacco: Never Tobacco Cessation:Ready to Q uit: Yes; Counseling Given: Yes Comments:Current smoker, everyday, 11-20 cigarettes/day Alcohol UseStandard Drinks/WeekCommentsNever0 (1 standard drink = 0.6 oz pure alcohol)Caffeine intake : > 4 cups per dayCommentsNoSex and Gender InformationValueDate RecordedSex Assigned at BirthNot on fileLegal SexFemale 08/05/2022 7:18 PM EDTGender IdentityNot on fileSexual OrientationNot on file Last Filed Vital Signs Vital SignReadingTime TakenCommentsBlood Rqmsfhcl572/7802/28/2025 9:25 AM EDT Ndzmf59087 3:04 PM XWIGsiyhhtoibd95.1 ??C (98.7 ??F)04/02/2024 1:27 PM ESTRespiratory Erro0612 8:22 AM EDTOxygen Zobkceecqj81%04/02/2024 1:27 PM ESTInhaled Oxygen Concentration--Jsirdo032 kg (291 lb)02/28/2025 9:25 AM EDT Xeorop494.2 cm (5' 7 )02/28/2025 9:25 AM EDTBody Mass Index45.5802/28/2025 9:25 AM EDT Plan of Treatment DateTypeDepartmentCare Team (Latest Contact Info)Xgfjdsoulbs84/31/2025 11:30 AM EDTOffice Visit [facility] [address] [place] [address] Terence Blum MD [address] [facility] [address] [place] [address] 07/25/2025 11:00 AM ESTOffice Visit [facility] [address] [place] [address] Cynthia English MD [address] [place] [address] Health MaintenanceDue DateLast DoneCommentsMMR Vaccines (1 of 1 - Standard series)1981DTaP/Tdap/Td Vaccines (1 - Tdap)10/05/1987Varicella Vaccines (1 of 2 - 13+ 2-dose series)1993Hepatitis B Vaccines (1 of 3 - 19+ 3-dose series)10/05/1999HPV Vaccines (1 - 3-dose SCDM series)10/05/2007COVID-19 Vaccine ( season)/07/2022, 05/26/2021, 10/19/2020, Additional history existsInfluenza Vaccine (#1)01/22/20250827Zrupxosqo404Pap Smear, 09/10/2022ervical Cancer Vrihluhxq21/20/2028 HPV/Bpqoev9309/11/2027HIB VaccinesAged OutNo longer eligible based on patient's age to complete this topicHepatitis A VaccinesAged OutNo longer eligible based on patient's age to complete this topicIPV VaccinesAged OutNo longer eligible based on patient's age to complete this topicMeningococcal B VaccineAged OutNo longer eligible based on patient's age to complete this topicMeningococcal VaccineAged OutNo longer eligible based on patient's age to complete this topic Pneumococcal Vaccine: Pediatrics (0 to 5 Years) and At-Risk Patients (6 to 64 Years)Aged OutNo longer eligible based on patient's age to complete this topic Rotavirus VaccinesAged OutNo longer eligible based on patient's age to complete this topic Procedures Procedure NamePriorityDate/TimeAssociated DiagnosisCommentsAEROBIC ELPIDIO CHARGE (NMIC56)Jwjdcxd1903/02/2025 5:17 PM EDT ANAEROBIC JRYILSBOvrftxt47/10/2025 5:17 PM EDT AEROBIC MGKWYVIZwsyuoe30/10/2025 5:17 PM EDT GRAM GISSGGfuaolp37/10/2025 5:17 PM EDT GENERAL LTPEXKBSJUwofviv92/10/2025 11:32 AM EDTBI US BREAST LIMITED LEFTRoutine 01/26/2025 12:14 PM EDT Other benign mammary dysplasias of left breast PAP QEYOHHfajbpj54/14/2025 12:00 AM ESTMM TOMOSYNTHESIS DIAGNOSTIC BI04/07/2024 8:40 AM EST from Last 3 Months or Most Recently Relevant to Health Maintenance Results * (ABNORMAL) AEROBIC ELPIDIO CHARGE (NMIC56) (03/02/2025 5:17 PM EDT)ComponentValue Ref RangeTest MethodAnalysis TimePerformed AtPathologist SignatureAMIKACIN<16 (S)03/04/2025 9:13 AM [facility]trAZTREONAM<4(I) 03/04/2025 9:13 AM [facility] CtrCEFEPIME<2(S)03/04/2025 9:13 AM [facility] CtrCEFTAZIDIME<1(I)03/04/2025 9:13 AM [facility] CtrCEFTAZIDIME/AVIBACTAM<4(S)03/04/2025 9:13 AM [facility] CtrCEFTOLOZANE/TAZOBACTAM<2(S)03/04/2025 9:13 AM [facility] CtrCEFTRIAXONE<1(I)03/04/2025 9:13 AM EDT [facility] CtrCIPROFLOXACIN>2(R)03/04/2025 9:13 AM EDT [facility] CtrERTAPENEM<0.5(S)03/04/2025 9:13 AM [facility] CtrGENTAMICIN<2(S)03/04/2025 9:13 AM [facility] CtrLEVOFLOXACIN<0.5(S)03/04/2025 9:13 AM [facility] CtrMEROPENEM<1(S)03/04/2025 9:13 AM [facility] MEROPENEM/VABORBACTAM<2(S)03/04/2025 9:13 AM [facility] PIPERACILLIN/TAZOBACTAM<8(I)03/04/2025 9:13 AM [facility] CtrTETRACYCLINE>8(R)03/04/2025 9:13 AM [facility] TIGECYCLINE<2(S)03/04/2025 9:13 AM [facility] CtrTOBRAMYCIN <2(S)03/04/2025 9:13 AM [facility] TRIMETHOPRIM/SULFAMETHOXAZOLE<0.5/9.5(S)03/04/2025 9:13 AM [facility] CtrSpecimen (Source)Anatomical Location / Laterality Collection Method / VolumeCollection TimeReceived TimeOtherSpecimen from uterine cervix / Prwdwgb2103/02/2025 5:17 PM EDT1 5:38 PM EDTComment: Abscess Narrative Authorizing ProviderResult TypeResult StatusTerence Pacheco MDFIRELANDSFinal ResultPerforming OrganizationAddressCity/State/ZIP CodePhone Number [facility] [address] [place] [address], [facility] [address] [place] [address] * ANAEROBIC CULTURE (03/02/2025 5:17 PM EDT)ComponentValueRef RangeTest Method Analysis TimePerformed AtPathologist SignatureFRMC ORGANISMPrevotella species 03/13/2025 12:54 PM [facility] CtrCOMMENTS.03/13/2025 12:54 PM [facility] CtrQUANTITY OF GROWTHLight Tnvthy9803/13/2025 12:54 PM [facility] CtrSEND TEST TO REF. LABSent to [facility] for [facility]ST[facility] ID03/13/2025 12:54 PM [facility] CtrComment: Identification performed at: ?? - [facility] [address] ??[id number] Manager Country: Doyle Mendenhall PhD, Phone: ??[phone] Please contact Microbiology within 7 days if anaerobic susceptibilities are needed. Specimen (Source)Anatomical Location / LateralityCollection Method / Volume Collection TimeReceived TimeOtherSpecimen from uterine cervix / Unknown 03/02/2025 5:17 PM EDT1 5:38 PM EDTComment:Abscess Narrative [facility] - 03/13/2025 12:54 PM EDT Comment pilonidal abscess culture Authorizing ProviderResult TypeResult StatusTerence Pacheco MDLAB BLOOD ORDERABLESFinal ResultPerforming OrganizationAddressCity/State/ZIP CodePhone Number [facility] [address] [place] [address], [facility] [address] [place] [address] * AEROBIC CULTURE (03/02/2025 5:17 PM EDT)ComponentValueRef RangeTest Method Analysis TimePerformed AtPathologist SignatureFRMC ORGANISMSerratia marcescens 03/04/2025 9:13 AM [facility] CtrQUANTITY OF GROWTHLight Ntizpk6703/04/2025 9:13 AM [facility] CtrSpecimen (Source) Anatomical Location / LateralityCollection Method / VolumeCollection Time Received TimeOtherSpecimen from uterine cervix / Dufbasb6903/02/2025 5:17 PM EDT 03/02/2025 5:38 PM EDTComment:Abscess Narrative [facility] - 03/13/2025 12:54 PM EDT Comment pilonidal abscess culture Authorizing ProviderResult TypeResult StatusMARGOT Salcedo BLOOD ORDERABLESFinal ResultPerforming OrganizationAddressCity/State/RUST CodePhone Number [address] [address], [facility] [address] [place] [address] * (ABNORMAL) Gram stain (03/02/2025 5:17 PM EDT)ComponentValueRef RangeTest MethodAnalysis TimePerformed AtPathologist SignatureGRAM STAIN1+ Gram Positive Cocci(A)03/03/2025 2:17 PM [facility] CtrGRAM STAIN2+ White Blood Cells(A)03/03/2025 2:17 PM [facility] CtrSpecimen (Source)Anatomical Location / LateralityCollection Method / VolumeCollection TimeReceived TimeOtherSpecimen from uterine cervix / Usaadmx5203/02/2025 5:17 PM EDT1 5:38 PM EDTComment:Abscess Narrative [facility] - 03/13/2025 12:54 PM EDT Comment pilonidal abscess culture Authorizing ProviderResult TypeResult StatusMARGOT Salcedo MICROBIOLOGY - GENERAL ORDERABLESFinal ResultPerforming OrganizationAddressCity/State/RUST CodePhone Number [facility] [address] [place] [address], [facility] [address] [place] [address] * GENERAL PATHOLOGY (03/02/2025 11:32 AM EDT) Narrative Authorizing ProviderResult TypeResult StatusAlGIUSEPPE SilvaLINISYNCFinal Result * Left breast US limited (01/26/2025 [...] obvious adenopathy. Authorizing ProviderResult TypeResult StatusAmy Temo [facility] US PROCEDURESFinal Result * Pap Smear (06/06/2024 12:00 AM EST)Specimen (Source)Anatomical Location / LateralityCollection Method / VolumeCollection TimeReceived TimeSwabCervical swab / Unknown Narrative Authorizing ProviderResult TypeResult StatusAmy [place] PAL[facility] CYTOLOGY ORDERABLES Final ResultPerforming OrganizationAddressCity/State/ZIP CodePhone Number EXTERNAL LAB * MM TOMOSYNTHESIS DIAGNOSTIC BI (04/07/2024 8:40 AM EST)Anatomical Region LateralityModalityOtherSpecimen (Source)Anatomical Location / Laterality Collection Method / VolumeCollection TimeReceived Time04/07/2024 8:40 AM EST Narrative 04/07/2024 8:41 AM EST [facility] ?[address] ? [place] [address] ? Mammography Report ? Signed ? Patient: JONES PANIAGUA B ?MR#: [id number] ?? : 1980 ?Acct:[id number] ?? Age/Sex: 43 / F ?ADM Date: 04/06/24 ?? Loc: US ? Attending Dr: Luan Valdivia D.O. ? Ordering Physician: Luna Valdivia D.O. ?Results: ? Date of Service: 04/06/24 ?Follow Up: ? Procedure(s): MM tomosynthesis diagnostic BI ?? Accession Number(s): [id number] ? cc: GAY DE LA TORRE ; Luan Valdivia D.O. ? Patient Name: ? JONES PANIAGUA ? MR#: [id number] ? : 1980 ? Exam Date: 04/06/2024 [...] ?? age 56. ? LOCATION: ? [facility] ? BREAST COMPOSITION: ? There are scattered [...] 0841 ? DD/ 0840 ? TD/TT: ? Electron Gun Inspector: Procedure Note Radiology, Radiologist, MD - 04/07/2024 [place] [address] Mammography Report Signed Patient: JONES PANIAGUA BMR#: [id number] : 1980Acct:[id number] Age/Sex: 43 / FADM Date: 04/06/24 Loc: US Attending Dr: Luan Valdivia D.O. Ordering Physician: Luan Valdivia D.O.Results: Date of Service: 04/06/24Follow Up: Procedure(s): MM tomosynthesis diagnostic BI Accession Number(s): [id number] cc: GAY DE LA TORRE ; Luan Valdivia D.O. Patient Name: JONES PANIAGUA MR#: [id number] : 1980 Exam Date: 04/06/2024 Ordering Doctor: DR Luna Valdivia . RADIOLOGY REPORT PROCEDURE: MM TOMOSYNTHESIS DIAGNOSTIC BI, 04/06/2024, 15:20 US BREAST BI LIMITED, 04/06/2024, 15:37 COMPARISON: MM TOMOSYNTHESIS SCREENING BI, 09/23/2023. MG MAMM LLNNGW3H MARK CAD, 09/01/2022. MG MAMM SCREEN 3D [...] stomach cancer at age 56. LOCATION: [facility] BREAST COMPOSITION: There are [...] Vito Yusuf M.D. Signed By:04/07/2441 DD/ TD/TT: Electron Gun Inspector: Authorizing ProviderResult TypeResult StatusCorey Skip DOCLINISYNC IMAGINGFinal Result from Last 3 Months or Most Recently Relevant to Health Maintenance Insurance Care Teams Team MemberRelationshipSpecialtyStart DateEnd Date Gay De La Torre MD [facility] [place], [place] [phone] Referring PhysicianFamily Medicine07/18/24
--- OUTSIDE RECORDS SUMMARY | 2025-03-22 08:50 | XMS_ITS | Clinical Summary ---
Author Organization [facility] Address [address] [place] [address] Care Team Providers Care Grocery Bagger Name Role Phone Gay De La Torre Lucinda [facility] Primary Care Provider [phone] Allergies Active AllergyReactionsCriticalityNoted RvdyNpfinywgJpabloigafiYpd07/12/2022 Other Reaction(s): Unknown Patient states it was a long time ago and she did not have a severe reaction. ??She does not believe she is allergic, she just thinks she just experienced side effects. Other Reaction(s): Unknown Reaction Other Reaction(s): Unknown, Unknown Reaction Other Reaction(s): Unknown ??Patient states it was a long time ago and she did not have a severe reaction. ??She does not believe she is allergic, she just thinks she just experienced side effects. ??Other Reaction(s): Unknown Reaction Patient states it was a long time ago and she did not have a severe reaction. ??She does not believe she is allergic, she just thinks she just experienced side effects. CodeineShortness of AflzheFbsy67/22/2025 Other Reaction(s): jittery Zdekubzqvnl73/17/2023 Other Reaction(s): Unknown OmrkhOhexFdh41/08/2015 Other Reaction(s): Rash Patient states it was [...] just thinks she just experienced side effects. Uzbogvwskg67/16/2024 Other Reaction(s): Other Aazsbektsnpe33/16/2024 Other Reaction(s): Other Sulfa VsjpftustkmJrvqgjdr97/22/2025Sulfamethoxazole-TrimethoprimDyspepsia, EmbryouvRcb35/17/2021 Patient states it was a long time ago and she did not have a severe reaction. She does not believe she is allergic, she just thinks she just experienced side effects. Ivhuxrjebgoh43/22/2025 Other Reaction(s): unknown Medications MedicationSigDispense QuantityRefillsLast FilledStart DateEnd DateStatus acetaminophen 500 MG tablet Take 2 tablets by mouth every 6 hours as needed for Mild Pain.Active ALPRAZolam 0.25 MG tablet Take 1 tablet by mouth daily.04/28/2024ctive aspirin 81 MG Chew Tab chewable tablet Chew 1 tablet daily.Active Baclofen 5 MG tablet Take 1 tablet by mouth 3 times daily.Active Benlysta 200 MG/ML Solution Auto-injector Inject 200 mg under the skin every 7 days.09/18/2024tive cephALEXin 500 MG capsule Take 1 capsule by mouth 3 (three) times a day.02/27/2025tive Cetirizine 10 MG tablet Take 1 tablet by mouth daily.Active Chlorhexidine Gluconate 4 % Solution Apply 1 Application topically daily as needed for Other.07/25/2024tive clindamycin 1 % Lotion lotion Apply 1 Application topically daily.07/25/2024tive Clobetasol Propionate 0.05 % Shampoo Apply 1 Application topically 3 times weekly. APPLY TO SCALP IN SHOWER 3 TO 4 TIMES A WEEK07/25/2024tive KlonoPIN 0.5 MG tablet Take 1 tablet by mouth daily.07/31/2024tive Clotrimazole 10 MG Christel 1 tablet by Mouth/Throat route 3 times daily.04/05/2024ctive Diclofenac sodium 1 % Gel gel Apply 2 g topically 4 times daily.08/14/2024tive Trulicity 1.5 MG/0.5ML Solution Auto-injector injection Inject 0.5 mL under the skin every 7 days.01/23/2025tive DULoxetine [address] Particles capsule DR Take 1 capsule by mouth daily.02/22/2025tive Ergocalciferol 1.25 MG (39654 UT) capsule Take 1 capsule by mouth once a week.5Active faMOTIdine 20 MG tablet Take 1 tablet by mouth at bedtime.Active fidaxomicin 200 MG tablet Take 1 tablet by mouth 2 times daily.10/08/2025Active fluocinonide 0.05 % Solution solution Apply 1 Application topically 2 times daily.07/25/2024tive fluticasone 50 MCG/ACT Suspension nasal spray 2 sprays by Nasal route As directed. Please see attached for detailed directions Active Folic acid 1 MG tablet Take 1 tablet by mouth daily.Active hydroCODone-acetaminophen 5-325 MG tablet Take 1 tablet by mouth every 6 hours as needed.02/26/2025tive hydroCODone-acetaminophen 7.5-325 MG tablet Take 1 tablet by mouth every 6 hours as needed.5Active Hydroxychloroquine Sulfate 400 MG tablet Take 1 capsule by mouth daily.Active Ibuprofen 200 MG tablet Take 4 tablets by mouth Every 8 hours.Active Methocarbamol 750 MG tablet Take 1 tablet by mouth 2 times daily.01/02/2025tive Metoprolol 50 MG tab regular release Take 1 tablet by mouth 2 times daily.Active Lo Loestrin Fe 1 MG-10 MCG / 10 MCG tablet Take 1 tablet by mouth daily.11/17/2024tive Nystatin 073203 UNIT/ML oral suspension Swish and spit 4 mL Every 6 hours.11/06/2024tive omeprazole [address] capsule Take 1 capsule by mouth daily.Active Pantoprazole [address] tablet DR Take 1 tablet by mouth daily.07/27/2024tive pilocarpine 5 MG tablet Take 1 tablet by mouth 3 (three) times a day.10/04/2024tive Pravastatin 20 MG tablet Take 1 tablet by mouth daily.4Active predniSONE 10 MG tablet Take 1 tablet by mouth As directed. Take 40mg daily x 3, decrease by 5mg every 3days until taking 10mg daily with food thereafter (no oral nsaids)01/23/2025 Active pregabalin 75 MG capsule Take 1 capsule by mouth daily as needed for Other.Active Thiamine 100 MG tablet Take 1 tablet by mouth daily.10/27/2024tive Tirzepatide (Mounjaro) 2.5 MG/0.5ML Solution Auto-injector Inject 2.5 mg under the skin every 7 days.02/26/2025tive triamcinolone 10 MG/ML injection 0.25 mL by Intralesional route once.11/23/2024tive Active Problems ProblemNoted DateDiagnosed DateFatty liver03/14/20252697Djnnlxdzjowp26/22/2025 Nontoxic single thyroid wmqcem5203/14/2025Type 2 diabetes bqzdqrop18/22/2025 Pilonidal lxflzfl1202/28/20252105Jbeoxycakcbfjajosrrfy67/09/2024. difficile diarrhea 03/07/20242514Mohnikbj52/15/2024uct ectasia of xqxkeb6203/07/2024Gastroesophageal reflux jwotfqu2903/07/2024Insulin qmlzlnqryh35/15/2024Facet arthritis of lumbar dyzauv9312/15/2023ischarge from lqwymx5711/15/2023Irregular periods/menstrual afhcne3211/15/20233014Qgygijrskbqj08/17/2024Lumbosacral ivkcytufqey24/17/2024 Abziyxpxarq80/02/4111Snypws29/19/2024ure hxephkonpbohqkeikuzc90/19/2024Thyroid chilxn9608/10/2023AC (premature atrial contraction)07/13/2023aroxysmal supraventricular sadzstykkfa28/20/2024Shortness of edqulo0607/13/2023ervical tirzekbbopzye62/13/2024hronic dpunggeeszlqjbgudc04/13/2024Tobacco use disorder 07/06/2023 Overview (03/14/2025): Added secondary to documentation in Social History. Added secondary to documentation in Social History. Cytomegalovirus jzizgwsxb64/13/2024isturbance of skin rxilsekdl90/13/2024 Enthesopathy of hip cthpru4707/06/2023LPRD (laryngopharyngeal reflux disease) 07/06/2023Lumbosacral radiculopathy at L507/06/20233702Cpnalmw53/13/2024Oral lesion 07/06/2023ain, hip07/06/2023hronic fatigue /18/3424Nomxhlj66/17/2024 Depression, ywpnggtks68/17/2024Essential cwkdsvjdnddu99/17/2024utonomic /09/2024Nonintractable episodic lnoetxie80/09/2024izziness 06/01/20239095Fohhnzjidvg39/09/2024ilateral wrist pain02/04/2023Raynaud's disease 02/04/2023Steroid-induced rvalkxizdtue63/14/2023Excessive and frequent menstruation with irregular cycle09/24/20227934Ghcmzfo47/17/2023NA positive 06/15/2022Sleep apnea05/20/2022omnolence, khbjneo9905/20/2022nemia, unspecified 03/11/2022Megaloblastic anemia due to vitamin B12 flvkekmhvf29/12/2022iscoid lupus phlyebtvcayle44/24/8838Ptkleagpnhhh34/03/2022ystemic lupus erythematosus 10/24/2021heumatoid ecvfbfqbh54/05/2022Vitamin D ixrqfsnjka50/14/2021ilateral leg toopzswk95/13/2021hronic pain of toes of both feet03/05/2021High total serum IgM03/05/2021Hair loss03/05/2021ash and nonspecific skin eruption 03/05/2021econdary osteoarthritis of multiple sites03/05/2021welling of lymph nodes03/05/2021ilateral uydniejksbuy03/22/2946Nyrnbw09/08/2015Chronic pain hxzqpozq19/08/0727Qcfuhhkeoojwmi22/08/2015Vitamin B12 oaohxjxjfs17/08/2015 Encounters DateTypeDepartmentCare CejgMpdwfocejdl89/27/2025Telephone [facility] Infectious Disease [address] [place] [address] Stacy Boyer Txskrog1903/14/2025 12:00 PM EDTOffice Visit [facility] [address], [place] [id number] Colleen Hamilton MD Nipple discharge in female (Primary Dx); Type 2 diabetes mellitus with other specified complication, unspecified whether mcc insulin use; Obesity with serious comorbidity in pediatric patient, unspecified obesity class, unspecified obesity type; IgG deficiency; Recurrent infections; Pilonidal abscess; Tobacco use disorderfrom Last 3 Months Social History Tobacco UseTypesPacks/DayYears UsedDateSmoking Tobacco: Every DayCigarettes Smokeless Tobacco: Never Tobacco Cessation:Ready to Q uit: No; Counseling Given: No CommentsNoSex and Gender InformationValueDate RecordedSex Assigned at BirthNot on fileLegal IphUatucv74/04/2024 9:51 AM ESTGender IdentityNot on file Sexual OrientationNot on file Last Filed Vital Signs Vital SignReadingTime TakenCommentsBlood Usehahtu348/8203/14/2025 11:52 AM EDT Ylplh872603/14/2025 11:52 AM ZERRwosqhbdoxo06 ??C (98.6 ??F)03/14/2025 11:52 AM EDTRespiratory Qttp1073 11:52 AM EDTOxygen Mlxofjvzbu15%03/14/2025 11:52 AM EDTInhaled Oxygen Concentration--Qurfyf177.8 kg (290 lb 9.6 oz)03/14/2025 11:52 AM EDTHeight--Body Mass Index-- Plan of Treatment Health MaintenanceDue DateLast DoneCommentsHEPATITIS C VIRUS FNHLTYKBO42/14/1981 GSCZTQN78 1980HIV SCREENING DIQQCRJJKN47/14/1996HEP B VACCINE (1 of 3 - 19+ 3-dose series)10/05/1999PNEUMOCOCCAL VACCINE SERIES (1 of 2 - PCV)10/05/1999TDAP (ADULT)10/05/1999ZOSTER (SHINGLES) VACCINE (1 of 2)10/05/1999CERVICAL CANCER SCREENING HCSHVVESMI18/14/2002HPV VACCINE (1 - 3-dose SCDM series)10/05/2007 LIPID SXQSNSOKD52/14/2021MAMMOGRAM SCREENING LWZHZHRWCX80/14/2021OVID-19 VACCINE ( season)51, 02/08/2022, 05/26/2021, Additional history existsINFLUENZA VACCINE (#1)01/22/2025 Procedures Procedure NamePriorityDate/TimeAssociated DiagnosisCommentsCULTURE WOUNDToday 03/14/2025 1:00 PM EDT Nipple discharge in female CULTURE VYDHLQqyty01/22/2025 1:00 PM EDT Nipple discharge in female REFERRAL (OUTSIDE)Brrdpkk8003/08/2025 2:11 PM EDTfrom Last 3 Months Results * CULTURE WOUND (03/14/2025 1:00 PM EDT) Only the most recent of2 resultswithin the time period is included. ComponentValueRef RangeTest MethodAnalysis TimePerformed AtPathologist Signature SPECIMEN DESCRIPTIONWOUNDST. ANTHONY'[facility] - [address] - BUCYRUSCOMMENTLEFT NIPPLE DISCHARGEBUMERCY HEALTH SPRINGFIELD [facility] - [address] - BUCYRUSGRAM STAINNO[address]Comment: WBC'S SEEN NO ORGANISMS SEEN RESULT-CULTNO GROWTH [address]Comment:Testing performed at [place] [address] Report Mtafan9603/16/[address]25[address] Comment:FINALSpecimen (Source)Anatomical Location / LateralityCollection Method / VolumeCollection TimeReceived TimeWoundSPECIMEN COLLECTION BY DRAINAGE / Bovtlmb2303/14/2025 1:00 PM EDT1 1:18 PM EDT Narrative Authorizing ProviderResult TypeResult StatusNancy F [place] MDMICROBIOLOGY - GENERAL ORDERABLESFinal ResultPerforming OrganizationAddressCity/State/ZIP Code Phone Number [facility] - [address] [place] [address] [facility] - [address] - [place] [address] [place] [address] * REFERRAL (OUTSIDE) (03/08/2025 2:11 PM EDT) Narrative Authorizing ProviderResult TypeResult StatusHistorical ProviderOSU OUTPATIENT REFERRALSFinal Result from Last 3 Months Insurance Care Teams Team MemberRelationshipSpecialtyStart DateEnd Date Gay De La Torre, TRUE [address] [place] [address] PCP - GeneralNurse Practitioner - Begslp60/4/24
--- OUTSIDE RECORDS SUMMARY | 2025-03-22 08:51 | XMS_ITS | Encounter Summary ---
Author Organization [employer] [facility] Address [address] [place] [address] Care Team Providers Care Soap Worker Name Role Phone BrittGay ordaz Lucinda BISWAS Primary Care Provider [phone] Reason for Visit * ReasonOnset ZjgnIsspeisbUstrtxk06/27/2025 Encounter Details DateTypeDepartmentCare Team (Latest Contact Info)Ymrmsfvxdte18/27/2025Telephone [facility] Infectious Disease [address] [place] [address] Stacy Boyer Results Social History Tobacco UseTypesPacks/DayYears UsedDateSmoking Tobacco: Every DayCigarettes Smokeless Tobacco: NeverCommentsNoSex and Gender InformationValueDate RecordedSex Assigned at BirthNot on fileLegal VeeYnbknd51/04/2024 9:51 AM EST Gender IdentityNot on fileSexual OrientationNot on filedocumented as of this encounter Miscellaneous Notes * Telephone Encounter - Stacy Boyer - 03/19/2025 3:22 PM EDT Patient made aware of results and advised to follow up with mineralogy teacher. Patient was agreeable to this and had no further questions for me at this time in regards to these cultures. ----- Message from Colleen Hamilton MD sent at 03/18/2025 2:49 PM EDT ----- Please tell her that her 2 breasts cultures were negative for any pathogens. One was negative and 1just showed a bacteria that normally lives on people skin. I would recommend that she follow up with her mineralogy teacher in terms of the reason that she is having bloody discharge from her nipples. documented in this encounter Plan of Treatment Not on file documented as of this encounter Visit Diagnoses Not on filedocumented in this encounter Care Teams Team MemberRelationshipSpecialtyStart DateEnd Date Gay De La Torre CNP [address] [place] [address] PCP - GeneralNurse Practitioner - Tamxfr12/4/24documented as of this encounter
--- OUTSIDE RECORDS SUMMARY | 2025-03-22 08:51 | XMS_ITS | Encounter Summary ---
Author Organization [facility] Address [address] [place] [address] Care Team Providers Care Customer Account Representative Name Role Phone Gay De La Torre MD Unavailable [phone] Reason for Visit * ReasonOnset DateCommentsFinal path [facility]25 Encounter Details DateTypeDepartmentCare Team (Latest Contact Info)Ffrjwjodndu27/21/2025Telephone [facility] [address] [facility] [address] [place] [address] Elizabeth Lockhart MA Final path came back from [facility] Social History Tobacco UseTypesPacks/DayYears UsedDateSmoking Tobacco: Every KjdHbzkhxbcvy657.8 Started: 05/24/1995Smokeless Tobacco: Never Comments:Current smoker, carlos [...] - 03/13/2025 12:[address] Blmu she should not need any further antibiotics. [...] Plan of Treatment DateTypeDepartmentCare Team (Latest Contact Info)Myejyeipatz06/31/2025 11:30 AM EDTOffice Visit [facility] [address] [phone] Terence Blum MD [address] [facility] [address] [place] [address] 07/25/2025 11:00 AM ESTOffice Visit [facility] [address] [place] [address] Cynthia English MD [address] [place] [address] documented as of this encounter Visit Diagnoses Not on filedocumented in this encounter Care Teams Team MemberRelationshipSpecialtyStart DateEnd Date Gay De La Torre MD [facility] [place] [phone] Referring PhysicianFamily Medicine07/18/24documented as of this encounter
--- NOTE | 2025-03-22 08:59 | US_ITS ---
The [address] [address] Patient Name: JONES HALEY MRN: [id number] date: 1980 Sex: F Assigned Patient Location: Current Patient Location: [facility] Accession/Order Number: [id number] Exam Date: 03/22/2025 09:30 Report Date: 03/22/2025 11:38 At the request of: GORDO BARFIELD MD Procedure: US thyroid THYROID ULTRASOUND CLINICAL DATA: Follow-up nodularity COMPARISON: 08/24/2024 The right thyroid lobe measures 4.8 x 2.2 x 2.1 cm . Left lobe measures 4.1 x 1.4 x 1.8 cm. The isthmus measures 3 - 4 mm. There is a heterogeneous echogenicity. On the right, no discrete nodules are measured. On the left at the inferior pole, there is a nodule measuring 9 x 6 x 9 mm. This appears to be a colloid cyst on today's study. This is not significantly changed. No new nodularity is seen. US/US thyroid IMPRESSION: LEFT COLLOID CYST, SIMILAR IN SIZE TO THE PRIOR. Impression dictated by: Simin Nelson M.D. 03/22/2025 11:38 AM Dictation Location: [place] [address] Electronically authenticated by: [id number] Y Date: 03/22/2025 11:38
--- OUTSIDE RECORDS SUMMARY | 2025-03-22 09:13 | XMS_ITS | CCD ---
Author Organization [facility] Care Team Providers Care Formal Waiter/Waitress Name Role Phone VICTOR MANUEL GUZMAN Referring Unavailable Unavailable Primary Care Provider JONAS Lynne Referring Unavailable Britt FIELD MARKETING COORDINATOR.TRUE, Gay Primary Care Provider [phone] Mirela Baer Unavailable Britt FIELD MARKETING COORDINATOR.CLINICAL RESEARCH SPEC, Gay Primary Care Provider Manuel Ferris MD Unavailable Manuel Ferris MD Primary Care Provider Manuel Ferris MD Unavailable Manuel Ferris MD Primary Care Provider [phone] Manuel Ferris MD Unavailable Manuel Ferris MD Primary Care Provider [phone] MANUEL LEYVA Primary Care Unavailable [...] Attending Unavailable TEMO ., OLY Admitting Unavailable [place], DR AURORA Pacheco Consulting Unavailable HOY ., [...] Care Provider UnavailAurora Carney MD Unavailable Britt TABOR Gay S Primary Care Provider Manuel Ferris MD Primary Care Provider [phone] MD Adolfo Kang Attending Provider CARISSA De La Torre-Ananya Estrada Primary Care Provider Charles Nicole MD Primary Care Provider CALOS ARCE Attending Unavailable Unavailable Primary Care Provider UnavailManuel Calixto MD Unavailable Britt LOBSTERMAN-C, Gay Estrada Primary Care Provider [phone] Jorge Luis LEE, Adolfo Jane Attending Provider [phone] ALHAJI VICTORIA Attending Unavailable MANUEL FERRIS [...] BRITT, GAY S Primary Care Unavailable Britt LOBSTERMAN-C, Gay Natalie Primary Care Provider [phone] Adolfo Knag MD Attending Provider Britt LOBSTERMAN-C, Gay Natalie Primary Care Provider [phone] Jorge Luis LEE, Adolfo Jane Attending Provider [phone] Arnett LOBSTERMAN, Margie Attending Provider Britt LOBSTERMAN-C, Gay Natalie Primary Care Provider Jorge Luis LEE, Adolfo Jane Attending Provider Bandar Portillo APRN Attending Provider Britt LOBSTERMAN-C, Gay Natalie Primary Care Provider Adolfo Kang MD Attending Provider Janes Barfield MD Attending Provider [phone] Adolfo Kang MD Other Provider Britt LOBSTERMAN-C, Gay Natalie Primary Care Provider Adolfo Kang MD Attending Provider [phone] Mathew Ji MD Attending Provider BERNABE ENGLISH Attending Unavailable GORDO BARFIELD Attending Unavailable MELISSA HUDDLESTON Attending Unavailable OLY PARNELL Referring Unavailable PETBERNABE HOWE Attending Unavailable TERENCE DAY Attending Unavailable BERNABE ENGLISH Referring Unavailable LUAN VALDIVIA Attending Unavailable OLY PARNELL Attending Unavailable MARKY NICHOLS Attending Unavailable GORDO BARFIELD Attending Unavailable BRITT, GAY Referring Unavailable OLY PARNELL Attending Unavailable Britt LOBSTERMAN-C, Gay Natalie Primary Care Provider [phone] Melquiades LOBSTERMAN, Margie Attending Provider Terence Blum MD Attending Provider [phone] Jose Perez DO Attending Provider Britt LOBSTERMAN-C, Gay Natalie Attending Provider Britt LOBSTERMAN-C, Gay Estrada Primary Care Provider Bandar Portillo [...] De La Torre CNP Primary Care Provider [phone] GAY DE LA TORRE Primary Care Unavailable [...] HOY, MANUEL M Primary Care Unavailable DEVEN, AVIBHAV Referring Unavailable HOY, MANUEL M Primary Care [...] OnsetReaction(s) FacilityDihydrofolate Reductase Inhibitors (antibiotic) (3 sources)TrimethoprimDrug Yapsagv42-85-9921Ntsnp: See CommentsChillicothe Va [facility] Doxycycline (3 sources)DoxycyclineDrug Wslccmr69-83-3322Yenmu: See [facility] Latex (3 sources)LatexSubstance Urcylgk16-34-4268ErsgOkocjwraw ClinicLincosamides (antibiotic) (3 sources)ClindamycinDrug Hevvebu58-46-3203KvocxtfYqngugpze ClinicOpioid Agonists (3 sources)CodeineDrug Amlxyzm07-46-1346Gwhlz: See CommentsChillicothe Va Medical Center Sulfamethoxazole / Trimethoprim (4 sources)Sulfamethoxazole / TrimethoprimDrug Qapzgfa43-44-1727EhfpmowdJzash HealthSulfonamides (antibiotic) (3 sources)SulfamethoxazoleDrug Bmxirmj10-95-4723Avpja: See [facility] Work Phone: (20 sources)Codeine; Translations: [CODEINE]Drug Yhqaxus88-11-7528Yxhek: See Comments, Shortness of BreathCh[facility]icothe [facility] (20 sources)Latex; Translations: [LATEX]Drug Msghyeh76-43-3868RdryGelfiajqg Clinic (20 sources)Sulfamethoxazole; Translations: [SULFAMETHOXAZOLE]Drug Allergy 48-38-4557IN Upset, Other: See CommentsChillicothe Va [facility] Center (20 sources)Clindamycin; Translations: [CLINDAMYCIN]Drug Adrinnh74-90-5023 UnknownChillicothe Va Medical Center (4 sources)Sulfamethoxazole / TrimethoprimDrug AllergyMonroe Carell [facility]. [facility] DanceJam Other (20 sources)Doxycycline; Translations: [DOXYCYCLINE]Drug Ecmwdxn62-11-8573Xjupy: See Comments, Other, Unknown, Other (See Comments)[facility] (20 sources)Sulfamethoxazole / Trimethoprim; Translations: [SULFAMETHOXAZOLE-TRIMETHOPRIM]Drug Objabfc41-08-0265Kjkpmkoi, Other, GI Disturbance, Other (See Comments), DyspepsiaChillicothe Va Medical Center (20 sources)Trimethoprim; Translations: [TRIMETHOPRIM]Drug Fhluykf42-48-3073 Other: See CommentsChillicothe Va Medical Center (1 source)LatexDrug allergy (disorder)95-59-1124Pwl [facility] Repository (1 source)Sulfamethoxazole / TrimethoprimDrug Vbnbjqm78-76-8283LxsFisher[facility] (20 sources)SulfamethoxazoleAllergy to dineyupui60-36-5097[facility] (20 sources)LatexPropensity to adverse gzcprmosc92-15-9696UhbaEVSO Healthcare (2 sources)Omeprazole; Translations: [OMEPRAZOLE]Drug Yizzkcc72-40-4516 [facility] Repository (2 sources)pantoprazole; Translations: [PANTOPRAZOLE]Drug Aycddia58-57-5925 [facility] Repository (1 source)ClindamycinDrug Xslruxl44-07-2771JxtzqszpaMetrohealth [facility] Rep[facility] (1 source)SulfamethoxazoleDrug Mpmssnz05-19-2178HkuvhskqmMetrohealth Parma [facility] Center Repository (1 source)TrimethoprimDrug Tvojamg03-76-2038JyqnjngiyMetrohealth Par[facility] Medical Center Rep[facility] (1 source)Sulfonamides (Antibiotic)Propensity to adverse reactions to drug 10-27-9947VrsctbwhBcalaLancaster Municipal Hospital Medications Current Medications MedicationDrug Class(es)DatesSig (Normalized)Sig (Original)acetaminophen 500 mg oral tablet (20 sources)Start: 24-33-6590fayx 2 tablets by mouth every six hours as needed for painAcetaminophen (Acetaminophen Extra Strength) 500 mg tablet Active 1000 MG PO Every 6 hours as needed for pain January 31, 2025 12:00am Complies with drug therapyStart: 01-24-2025 End: 92-35-2155noxw 1 dose by mouth once, then take 4000 mg by mouth once daily 650 mg, ORAL, ONCE, 1 dose, On Wed01/24/25 at 0930, No more than 4000 mg of acetaminophen should be given per day (FROM ALL SOURCES)Start: 01-11-2025 End: 22-96-3423fvre 1 dose by mouth once1,000 mg, ORAL, ONCE, 1 dose, On Wed01/11/25 at 1430Start: 12-14-2024 End: 85-73-9600doxb 1 dose by mouth once1,000 mg, ORAL, ONCE, 1 dose, On Wed12/14/24 at 1430Start: 11-29-2024 End: 38-11-9980lhah 1 dose by mouth once, then take 4000 mg by mouth once daily 650 mg, ORAL, ONCE, 1 dose, On Wed11/29/24 at 1000, No more than 4000 mg of acetaminophen should be given per day (FROM ALL SOURCES)Start: 11-16-2024 End: 45-64-3957doyt 1 dose by mouth once1,000 mg, ORAL, ONCE, 1 dose, On Wed11/16/24 at 1400Start: 10-31-2024 End: 01-74-8925fexl 1 dose by mouth once, then take 4000 mg by mouth once daily 650 mg, ORAL, ONCE, 1 dose, On Wed10/31/24 at 1000, No more than 4000 mg of acetaminophen should begiven per day (FROM ALL SOURCES)Start: 10-19-2024 End: 75-12-8207txvc 1 dose by mouth once1,000 mg, ORAL, ONCE, 1 dose, On Wed10/19/24 at 1430Start: 2024 End: 28-89-1826cfyy 1 dose by mouth once1,000 mg, ORAL, ONCE, 1 dose, On Wed10/04/24 at 1430Start: 10-02-2024 End: 37-82-8186khsl 1 dose by mouth once, then take 4000 mg by mouth once daily 650 mg, ORAL, ONCE, 1 dose, On Wed10/02/24 at 0900, No more than 4000 mg of acetaminophen should begiven per day (FROM ALL SOURCES)Start: 09-18-2024 End: 02-20-4781ihmx 1 dose by mouth once1,000 mg, ORAL, ONCE, 1 dose, On Wed09/18/24 at 1300Start: 09-06-2024 End: 41-85-1851cevq 1 dose by mouth once, then take 4000 mg by mouth once daily 650 mg, ORAL, ONCE, 1 dose, On Wed09/06/24 at 0930, No more than 4000 mg of acetaminophen should begiven per day (FROM ALL SOURCES)Start: 08-08-2024 End: 78-51-6947nehf 1 dose by mouth once, then take 4000 mg by mouth once daily 650 mg, ORAL, ONCE, 1 dose, On Wed08/08/24 at 0930, No more than 4000 mg of acetaminophen should begiven per day (FROM ALL SOURCES)Start: 07-11-2024 End: 06-45-4924xiqs 1 dose by mouth once, then take 4000 mg by mouth once daily 650 mg, ORAL, ONCE, 1 dose, On Wed07/11/24 at 0900, No more than 4000 mg of acetaminophen should begiven per day (FROM ALL SOURCES)Start: 06-13-2024 End: 46-85-8490fmkg 1 dose by mouth once, then take 4000 mg by mouth once daily 650 mg, ORAL, ONCE, 1 dose, On Wed06/13/24 at 1000, No more than 4000 mg of acetaminophen should begiven per day (FROM ALL SOURCES)Start: 05-19-2024 End: 06-26-4493xvho 1 dose by mouth once, then take [...] 5 mg oral tablet (2 sources)Opioid AgonistStart: 91-55-7005jplz 1 tablet by mouth every six hours as neededhydroCODone-acetaminophen 5-325 MG tablet Take 1 tablet by mouth every 6 hours as needed. 02/26/2025 ActiveStart: 68-94-6068cwhl 1 tablet by mouth every six hours as neededhydroCODone-acetaminophen 7.5-325 MG tablet Take 1 tablet by mouth every 6 hours as needed. 01/08/2025 ActiveALPRAZolam 0.25 mg oral tablet (20 sources)BenzodiazepineStart: 06-24-2023 End: 98-27-5433aufi 1 tablet by mouth once dailyALPRAZolam 0.25 MG tablet Take 1 tablet by mouth daily. 04/28/2024 Activeamoxicillin 875 mg oral tablet (2 sources)Penicillin-class AntibacterialStart: 01-96-2012pdaa 1 tablet by mouth every twelve hoursAmoxicillin [...] tablet (20 sources)gamma-Aminobutyric Acid-ergic AgonistStart: 02-09-2024 End: 34-08-9583iwss 1 tablet by mouth at bedtimebaclofen (Lioresal) 5 MG tablet Indications: Lumbosacral radiculopathy at L5 , Degenerative disc disease, lumbar , Cervical radiculopathy at C5 TAKE 1 TABLET BY MOUTH IN THE MORNING, EVENING AND BEFORE BEDTIME 270 tablet 1 03/02/2024 02/28/2025 Discontinued (Therapy completed)cephalexin 500 mg oral capsule (14 sources)Cephalosporin AntibacterialStart: 02-27-2025 End: 12-36-8237jhzi 1 capsule by mouth three times dailycephALEXin 500 MG capsule Take 1 capsule by mouth 3 (three) times a day. 02/27/2025 ActiveStart: 06-15-2024 End: 39-76-1442xdzz 1 capsule by mouth in the morningcephalexin (Keflex) 500 MG capsule Indications: Cyst, breast, sebaceous, left Take 1 capsule (500 mg) by mouth in the morning and 1 capsule (500 mg) before bedtime. Do all this for 7 days. 14 netiilj3706/15/2024 06/22/2024 ActiveStart: 54-34-5375cnivofkqom (Keflex) 500 MG capsule Indications: Postoperative stitch abscess Take 1 tablet twice a day x 7 days 14 capsule 0 01/07/2023 ActiveKeflex Activecetirizine hydrochloride 10 mg oral tablet (4 sources)Histamine-1 Receptor Antagonisttake 1 tablet by mouth once daily Cetirizine 10 MG tablet Take 1 tablet by mouth daily. Active End: 64-82-0297Yvfhfgqkff (ZYRTEC) 10 mg cap Take by mouth. 0 02/25/2022 Discontinued (Course of therapy completed)Comment on above:Take by mouth. Chlorhexidine (20 sources)Start: 72-22-7301Twprjbdmsbvls Gluconate 4 % Solution Apply 1 Application topically daily as needed for Other. 07/25/2024 ActiveStart: 47-94-4440Veaeveczajkqz Gluconate (Hibiclens) 4 % solution Indications: Hidradenitis suppurativa Use every day in shower from the neck down to affected areas. 532 mL 11 07/25/2024 ActiveStart: 11-01-2023 End: 74-67-6576Einmpuifdgokw Gluconate (Hibiclens) 4 % solution Indications: Hidradenitis suppurativa Apply 1 Application topically Daily LATHER ONTO AFFECTED AREAS ON THE BODY AND RINSE FROM THE NECK DOWN 2 TIMES A WEEK AVOIDING THE FACE. 30 day supply 236 mL 11 03/17/2024 04/16/2024 ActiveStart: 07-15-2023 End: 84-23-7143zzuhnagnpgeid (Hibiclens) 4 % external liquid Indications: Hidradenitis suppurativa Lather onto affected areas on the body and rinse from the neck down, 2 times a week avoiding the face, 30 day supply 118 mL 11 07/15/2023 03/16/2024 Discontinuedclindamycin 10 mg/ml topical lotion (20 sources)Lincosamide AntibacterialStart: 98-17-7148vpiabslxdwn 1 % Lotion lotion Apply 1 Application topically daily. 07/25/2024 ActiveStart: 06-23-2022 End: 32-89-5136zuslsgmxoim (Clindagel) 1 % gel Indications: Hidradenitis suppurativa APPLY TO AFFECTED AREA DAILY 75 mL 11 10/06/2023 06/06/2024 Discontinuedclobetasol propionate 0.5 mg/ml medicated shampoo (20 sources)CorticosteroidStart: 82-14-2204Chwbmxjlvx Propionate 0.05 % Shampoo Apply 1 Application topically 3 times weekly. APPLY TO SCALP IN SHOWER 3 TO 4 TIMES A WEEK 07/25/2024 ActiveStart: 07-51-3884Nqrktkfioy 0.05 % shampoo Active 1 APPLIC TOPICAL As Directed October 20, 2023 12:00am Complies with drug therapy Start: 97-16-4522Hrdifxrxbl Active TOPICAL October 20, 2023 12:00amStart: 10-23-2022 End: 41-03-5651Ajswgxlbpx Propionate 0.05 % shampoo Indications: Other seborrheic dermatitis 1 application to the scalp in the shower topically 3-4 times a week 236 mL 11 07/25/2024 ActiveclonazePAM 0.5 mg oral tablet (20 sources)BenzodiazepineStart: 85-06-4547ihtl 1 tablet by mouth once daily KlonoPIN 0.5 MG tablet Take 1 tablet by mouth daily. 07/31/2024 Active clotrimazole 10 mg oral lozenge (11 sources)Azole AntifungalStart: 57-90-3125gkjszulmyziv (MYCELEX) 10 mg christel USE 1 CHRISTEL WHILE ON IMMUNOSUPPRESSIVE MEDICINE BY MOUTH/THROAT 3 TIMES A DAY 10/23/2024 ActiveStart: 53-19-5918nlnvabuklysc (MYCELEX) 10 mg christel Dissolve 1 Hcristel in the mouth in the morning and 1 Christel at noon and 1 Christel in the evening and 1 Christel before bedtime. 04/05/2024 ActiveCPAP/BIPAP/OTHER (20 sources)Start: 05-05-2022 End: 48-39-3374GFCD/BIPAP/OTHER Indications: JOSE RAFAEL (obstructive sleep apnea) Type .CPAPSettings into a note to see current settings/supplies/DME information. 1 Each 05/05/2022 09/19/2049 ActiveStart: 05-05-2022 End: 85-64-8283NWYG/BIPAP/OTHER Indications: JOSE RAFAEL (obstructive sleep apnea) Type .CPAPSettings into a note to see current settings/supplies/DME information. 1 Each 0 05/05/2022 09/19/2049 ActiveStart: 04-13-2022 End: 34-00-2579HOQF/BIPAP/OTHER Indications: JOSE RAFAEL (obstructive sleep apnea) Type .CPAPSettings into a note to see current settings/supplies/DME information. 1 Each 0 04/13/2022 04/26/2023 Discontinued (Duplicate Entry)Start: 04-13-2022 End: 04-57-8267HTKV/BIPAP/OTHER Indications: JOSE RAFAEL (obstructive sleep apnea) Type .CPAPSettings into a note to see current settings/supplies/DME information. 1 Each 0 04/13/2022 08/28/2049 ActiveComment on above:Type .CPAPSettings into a note to see current settings/supplies/DME information.diclofenac sodium 0.01 mg/mg topical gel (20 sources)Nonsteroidal Anti-inflammatory DrugStart: 56-30-4161Dblgkectkb sodium 1 % Gel gel Apply 2 g topically 4 times daily. 08/14/2024 ActiveStart: 81-11-7923fiysrvncro sodium 1 % gel 02/01/2024 ActiveStart: 55-58-1302hoykiuyquh sodium (VOLTAREN ARTHRITIS PAIN) 1 % gel Apply 2 g topically 4 (four) times a day as needed. 02/01/2024 PpchazuyuqtpensjXMOLL-zolclw-hiknyrwea (BMX 1:1:1) 1:1:1 liqd (20 sources)Start: 89-87-6010qdwl 5 mL by mouth every six hours as needed nhkybiljucZVIDU-fwcxej-sjrcxxocq (BMX 1:1:1) 1:1:1 liqd Take 5 mL by mouth every 6 hours as needed.500 mL 1 07/12/2024 Active0.5 ml dulaglutide 3 mg/ml auto-injector (20 sources)GLP-1 Receptor AgonistStart: 51-26-7804Ykeuesgdf 1.5 MG/0.5ML Solution Auto-injector injection Inject 0.5 mL under the skin every 7 days. 0 01/23/2025 ActiveStart: 08-17-2024 End: 03-90-4023Njmwarmsi 1.5 MG/0.5ML solution auto-injector INJECT SUBCUTANEOUSLY ONCE A WEEK DIRECTED 08/17/2024 02/28/2025 Discontinued (Therapy completed)Start: 77-68-4528jmpbjz 0.75 mg by subcutaneous injection onceTRULICITY 0.75 mg/0.5 mL pen injector Inject 0.75 mg subcutaneously one time a week. Per PCP 07/29/2024 ActiveStart: 11-16-2022 End: 89-92-2035rlwoqg 1.5 mg by subcutaneous injection every weekdulaglutide (TRULICITY) 1.5 mg/0.5 mL pen injector Indications: Obesity, Class II, BMI 35- 39.9 , Prediabetes Inject 1.5 mg subcutaneously one time a week. 2 mL 0 11/16/2022 ActiveStart: 10-16-2022 End: 73-41-1195iclnjb 0.75 mg by subcutaneous injection every weekdulaglutide (TRULICITY) 0.75 mg/0.5 mL pen injector Indications: Obesity, Class III, BMI 40- 49.9 (morbid obesity) (HCC) , Pre-diabetes Inject 0.75 mg subcutaneously one time a week. 2 mL 0 10/16/2022ctiveStart: 09-07-2022 End: 68-97-8424hgnfhs 0.75 mg by subcutaneous injection every weekdulaglutide [...] capsule (20 sources)Serotonin and Norepinephrine Reuptake InhibitorStart: 41-04-0160wgkg 1 capsule by mouth once dailyDULoxetine [address] Particles capsule DR Take 1 capsule by mouth daily. 02/22/2025 ActiveStart: 57-26-9869buda 1 capsule by mouth once dailyDuloxetine 20 mg capsule,delayed release(DR/EC) Active 20 MG PO Daily December 12, 2024 12:00am Complies with drug therapyStart: 02-01-2024 End: 43-91-8640imbq 1 capsule by mouth once dailyDULoxetine (Cymbalta) [address] capsule Take 20 mg by mouth Daily 02/01/2024 03/16/2024 DiscontinuedStart: 10-29-2022 End: 05-11-3111ipeu 1 capsule by mouth once dailyDULoxetine (CYMBALTA) 20 mg capsule Indications: Depression, recurrent (HCC) , Chronic pain syndrome Take 1 capsule by mouth once daily. 30 capsule 2 10/29/2022 04/26/2023 Discontinued (Course of therapy completed)Start: 03-09-2022 End: 47-55-7419eyug 1 capsule by mouth once dailyDULoxetine (CYMBALTA) 20 mg capsule Take 1 capsule by mouth once daily. 30 capsule 2 03/09/2022 Active Comment on above:Take 1 capsule by mouth once daily.ergocalciferol 1.25 mg oral capsule (20 sources)Provitamin D2 CompoundStart: 20-59-9734Uxbxdtwazqvwvo (Vitamin D2) 1,250 mcg (50,000 unit) capsule Active 11992 UNIT PO 3 Times a week November 13, 2024 11:23am Complies with drug therapyStart: 04-02-2024 End: 54-87-7372sxczgzhhrvowvp 50,000 unit capsule (VITAMIN D2, DRISDOL) Indications: Vitamin D deficiency Take 1cap by mouth twice a week x 10weeks, then once a week with food. 24 capsule 1 04/02/2024 07/09/2024 Discontinued Start: 10-20-2023 End: 85-93-2181sovc 1 capsule by mouth every weekErgocalciferol 1.25 MG (90602 UT) capsule Take 1 capsule by mouth once a week. 10/06/2024 ActiveStart: 10-31-2022 End: 86-59-5935arxr 1 capsule by mouth every weekergocalciferol (DRISDOL) 1,250 mcg (50,000 unit) capsule Take 1 capsule (50,000 Units total) by mouth once a week. 10/20/2023 ActiveStart: 54-47-6157tmywprzkdugzfp 50,000 unit capsule (VITAMIN D2, DRISDOL) Indications: Vitamin D deficiency (take bymouth with food 3times a week, ONE CAPSULE ON Mondays, Fridays) FOR A TOTAL OF 8 WEEKS, then once aweek thereafter. 28 capsule 1 05/18/2022 ActiveStart: 10-26-2021 End: 81-56-6763nvznndnupmfoem 50,000 unit capsule (VITAMIN D2, DRISDOL) Indications: Vitamin D deficiency (take bymouth with food 2times a week, ONE CAPSULE ON MON, Fridays) FOR A TOTAL OF 8 WEEKS, then once aweek thereafter. 20 capsule 1 03/05/2022 ActiveStart: 68-87-8660pkfduwssqfjrja 50,000 unit capsule (VITAMIN D2, DRISDOL) Indications: Vitamin D deficiency (take bymouth with food 3times a week, ONE CAPSULE ON Mondays, Wed, Fridays) FOR A TOTAL OF 8 WEEKS. 24 capsule 0 03/06/2021 Activetake 1 capsule by mouth every week ergocalciferol (Vitamin D2) 1.25 MG (75387 UT) capsule Take 50,000 Units by mouth [...] / Ferrous fumarate / Norethindrone (20 sources)EstrogenStart: 37-98-8128qjdr 1 tablet by mouth once dailyLo Loestrin Fe 1 MG-10 MCG / 10 MCG tablet Take 1 tablet by mouth daily. 11/17/2024 ActiveStart: 80-92-2903nkgm 1 tablet by mouth once dailyLO LOESTRIN FE 1 mg-10 mcg (24)/10 mcg (2) Take 1 tablet by mouth once daily. 11/17/2024 ActiveStart: 03-23-2024 End: 30-93-2435gyyi 1 tablet by mouth once dailynorethindrone-ethinyl estradiol- iron (Lo Loestrin Fe) 1 MG-10 MCG / 10 MCG tablet Indications: Menorrhagia with regular cycle Take 1 tablet by mouth Daily Take 1 tablet by mouth daily 28 tablet 11 03/23/2024 02/28/2025 Discontinued (Therapy completed)Start: 03-23-2024 End: 13-00-4094phnl 1 tablet by mouth once dailynorethindrone-ethinyl estradiol- iron (Lo Loestrin Fe) 1 MG-10 MCG / 10 MCG tablet Indications: Menorrhagia with regular cycle Take 1 tablet by mouth Daily Take 1 tablet by mouth daily 28 tablet 11 03/23/2024 02/22/2025 Activefidaxomicin 200 mg oral tablet (20 sources)Macrolide AntibacterialStart: 45-13-9265lfth 1 tablet by mouth twice dailyfidaxomicin 200 MG tablet Take 1 tablet by mouth 2 times daily. 02/28/2025 ActiveStart: 06-15-2024 End: 61-16-4189ajzd 1 tablet by mouth once in the morningfidaxomicin (Dificid) 200 MG tablet Indications: H/O Clostridium difficile infection Take 1 tablet ( 200 mg) by mouth in the morning and 1 tablet (200 mg) before bedtime. Do all this for 10 days. 20 tablet 06/15/2024 06/25/2024 ActiveStart: 10-20-2023 End: 18-55-7191nfdj 1 tablet by mouth every other dayFidaxomicin (Dificid) 200 mg tablet Discontinued 200 MG PO .every other day October 20, 2023 12:00am December 16, 2023 2:11pmStart: 10-20-2023 End: 26-84-8787plta 1 tablet by mouth every twelve hoursFidaxomicin (Dificid) 200 mg tablet Discontinued 200 MG PO Every 12 hours 20 10 October 20, 2023 12: 00am December 16, 2023 2:11pmfludrocortisone acetate 0.1 mg oral tablet (3 sources)Start: 06-01-2023 End: 27-07-1703zzgo 1 tablet by mouth at bedtimefludrocortisone (Florinef) 0.1 MG tablet Indications: Autonomic dysfunction Take 1 tablet (0.1 mg) by mouth at bedtime 30 tablet 11 06/01/2023 05/31/2024 Activefluocinonide 0.5 mg/ml topical solution (20 sources)CorticosteroidStart: 07-15-2023 End: 90-97-0542gptsscugonwg 0.05 % Solution solution Apply 1 Application topically 2 times daily. 07/25/2024 ActiveStart: 97-51-4870Ppnaztqsckex 0.05 % solution Active 1 APPLIC TOPICAL Daily as needed for rash October 20, 2023 12:00am Complies with drug therapyfluticasone propionate 0.05 mg/actuat metered dose nasal spray (20 sources)CorticosteroidStart: 76-46-7708hrgy 2 spray(s) nasal route in the morningfluticasone [...] acid 1 mg oral tablet (20 sources)Start: 12-21-1301gibi 1 tablet by mouth once dailyFolic Acid 1 mg tablet Active 1 MG PO Daily December 12, 2024 12:00am Complies with drug therapy Start: 47-38-7997Iigvi Acid 1 mg tablet Active PO Daily December 12, 2024 12:00am Complies with drug therapyStart: 03-18-2022 End: 32-03-4156yhwt 1 tablet by mouth once dailyFolic Acid 1 mg tablet Active 1 MG PO Daily December 12, 2024 12:00am Complies with drug therapyComment on above: Take 1 tablet by mouth once daily.TAKE 1 TABLET BY MOUTH EVERY DAY hydroxychloroquine sulfate 200 mg oral tablet (20 sources)Antimalarial, Antirheumatic AgentStart: 22-39-8019ncudOGIeomcebIBYGE (PLAQUENIL) 200 mg tablet Indications: CHRISTIAN positive , Other systemic lupus erythematosus with other organ involvement (HCC) TAKE 1 TAB TWICE A DAY WITH FOOD *SUNSCREEN WHILE OUTDOORS/OPHTHAMOLOGY EVERY 6-12 MONTHS WHILE ON* 60 tablet 11 01/23/2025 ActiveStart: 25-46-4464hxlr 2 tablets by mouth once daily Hydroxychloroquine 200 mg tablet Active 400 MG PO Daily October 20, 2023 12:00am Complies with drug therapyStart: 98-68-1292owds 400 mg by mouth once daily Hydroxychloroquine Active 400 MG PO Daily October 20, 2023 12:00amStart: 10-19-2023 End: 22-59-3038kzgiXALqqcuzyXIZGA (PLAQUENIL) 200 mg tablet Indications: CHRISTIAN positive [...] 180 tablet 3 10/30/2022 ActiveStart: 05-05-2021 End: 02-72-6976uoozANDgxnxemUFFWM (PLAQUENIL) 200 mg tablet Indications: CHRISTIAN positive [...] at the same time. 0 Active End: 00-88-3368quszxdatbsdxarffrs sulfate (HYDROXYCHLOROQUINE ORAL) Hydroxychloroquine Sulfate Active 0 03/12/2022iscontinued (Duplicate Entry) Hydroxychloroquine Sulfate ActiveComment on above:Take one tab by mouth twice a day with food. Sunscreen when outdoors. See ophthalmology every 6-12months on med.Hydroxychloroquine Sulfate ActiveTAKE 1 TAB TWICE A DAY WITH FOOD *SUNSCREEN WHILE OUTDOORS/OPHTHAMOLOGY EVERY 6-12 MONTHS WHILE ON*hyoscyamine sulfate 0.125 mg oral tablet (2 sources)Start: 93-79-3020rtjq 1 tablet by mouth every six hours as needed for painhyoscyamine (Anaspaz,Levsin) 0.125 MG tablet TAKE 1 TABLET BY MOUTH EVERY 6 HOURS NEEDED FOR ABDOMINAL PAIN 0 06/27/2023 Activeibuprofen 400 mg oral tablet (20 sources)Nonsteroidal Anti-inflammatory DrugStart: 03-52-5967Hezchpjix 400 mg tablet Active 400 MG PO [...] mouth. Immunoglobulin G (20 sources)Human Immunoglobulin GStart: 47-58-5725Uthcx: 61-97-8163ultvezhqs Active IV EVERY 4 WEEKS December 12, 2024 10:58am Complies with drug therapyStart: 12-12-2024 End: 38-66-1785ionsrgnsi Discontinued IV December 12, 2024 12:00am December 12, 2024 10:58amimmune globulin, human, (Gammagard) infusion Infuse into a venous catheter Activeimmune globulin, human, (Gammagard) infusion Infuse into a venous catheter 1 time. Activemagnesium citrate 58.2 mg/ml oral solution (2 sources)Start: 74-69-2817HQE Magnesium Citrate oral solution TAKE HALF OF THE BOTTLE WITH 8 OZ OF WATER, TAKE THE OTHER HALFAFTER 1 HOUR WITH 8 OZ OF WATER 0 06/27/2023 Activemethocarbamol 750 mg oral tablet (1 source)Muscle RelaxantStart: 72-88-0918rleo 1 tablet by mouth twice daily Methocarbamol 750 MG tablet Take 1 tablet by mouth 2 times daily. 01/02/2025 Activemetoprolol tartrate 50 mg oral tablet (20 sources)beta-Adrenergic BlockerStart: 07-26-2024 End: 40-71-8586logf 1 tablet by mouth four times dailymetoprolol tartrate (Lopressor) 50 mg tablet Indications: Paroxysmal supraventricular tachycardia ([facility]) , Essential hypertension Take 1 tablet by mouth 4 times a day. 360 tablet 3 07/26/2024 07/26/2025 ActiveStart: 15-71-9729qvtq 4 tablets by mouth once dailyMetoprolol Tartrate 50 mg tablet Active 200 MG PO Daily October 20, 2023 12:00am Complies with drug therapyStart: 72-42-5039uhhj 200 mg by mouth once dailyMetoprolol Tartrate Active 200 MG PO Daily October 20, 2023 12:00amStart: 25-55-3759pwvn 50 mg by mouth once dailyMetoprolol Tartrate Active 50 MG PO Daily October 20, 2023 12:00amStart: 57-63-1200tvmp 1 tablet by mouth twice daily metoprolol tartrate, short acting, (LOPRESSOR) 50 mg tablet Take 50 mg by mouth twice daily. 05/25/2022 ActiveStart: 05-25-2022 End: 58-52-5494luet 2 tablets by mouth in the morningmetoprolol tartrate (Lopressor) 50 MG tablet Take 100 mg by mouth in the morning and 100 mg before b edtime. 04/23/2023 ActiveStart: 07-29-2020 End: 37-47-6011ivuk 1 tablet by mouth twice dailymetoprolol tartrate, short acting, (LOPRESSOR) 25 mg tablet Take 25 mg by mouth twice daily. 0 07/29/2020 ActiveComment on above:Take 25 mg by mouth twice daily.Take 50 mg by mouth twice daily.montelukast 10 mg oral tablet (5 sources)Leukotriene Receptor AntagonistStart: 05-25-2023 End: 22-62-2953bvht 1 tablet by mouth once daily at bedtimemontelukast (Singulair) 10 mg tablet Take 1 tablet (10 mg) by mouth once daily at bedtime. 0 05/25/2023 05/24/2024 ActiveNaltrexone (15 sources)Opioid AntagonistStart: 01-19-2022 End: 67-32-9325hkhg 1 capsule by mouth once dailynaltrexone capsule 1 mg TAKE ONE CAPSULE BY MOUTH DAILY 0 01/19/2022 07/25/2022 DiscontinuedStart: 01-19-2022 take 1 capsule by mouth once dailynaltrexone capsule 1 mg TAKE ONE CAPSULE BY MOUTH DAILY 0 01/19/2022 ActiveComment on above:TAKE ONE CAPSULE BY MOUTH DAILY nitroglycerin 0.4 mg sublingual tablet (20 sources)Nitrate VasodilatorStart: 10-07-2020 End: 16-46-1468eixldiulizden sublingual (NITROQUICK) 0.4 mg SL tablet Dissolve 0.4 mg under the tongue. 0 10/07/2020 07/25/2022 DiscontinuedComment on above: Dissolve 0.4 mg under the tongue.nystatin 674070 unt/ml oral suspension (20 sources)Polyene AntifungalStart: 67-55-0897vazp 4 mL by mouth every six hoursNystatin 846131 UNIT/ML oral suspension Swish and spit 4 mL Every 6 hours. 11/06/2024 ActiveStart: 28-67-0382biyr 4 mL by mouth four times dailynystatin (MYCOSTATIN) 100,000 unit/mL suspension TAKE 4 ML BY MOUTH / THROAT 4 TIMES A DAY FOR 7 DAYS 11/06/2024 ActiveStart: 07-31-2024 End: 55-18-4612mttp 1 mL by mouth once dailyNystatin 100,000 unit/mL suspension Discontinued 1 ML PO Daily July 31, 2024 12:00am December 12, 2024 10:49am swish and swallowStart: 07-25-2024 End: 39-39-2817znldwiaf (Mycostatin) 753783 UNIT/ML suspension Indications: Rash and other nonspecific skin eruption Take 4 mL (400,000 Units) by mouth in the morning and 4 mL (400,000 Units) at noon and 4 mL (400,000 Units) in the evening and 4 mL (400,000 Units) before bedtime. Do all this for 14 days. 224 mL 08/08/2024 ActiveStart: 01-27-2024 End: 90-17-0063hsstcepa (MYCOSTATIN) 100,000 unit/mL suspension Take 5 mL by mouth four times daily for 7 days. SWISH AND SWALLOW 1 TEASPOON(S) (5ML) 4 TIMES PER DAY. 140 mL 01/27/2024 02/03/2024 ActiveStart: 14-48-1950cexbxviz (Mycostatin) cream Indications: Candidiasis of skin Apply to left armpit BID until clear 15 g 01/15/2023 Activeondansetron 4 mg disintegrating oral tablet (2 sources)Serotonin-3 Receptor AntagonistStart: 80-64-2838loog 1 tablet by mouth every six hours as needed for nausea and vomitingondansetron ODT (Zofran- ODT) 4 MG disintegrating tablet DISSOLVE 1 TABLET IN MOUTH EVERY 6 HOURS NEEDED FOR NAUSEA AND VOMITING 0 06/27/2023 Activepantoprazole 20 mg delayed release oral tablet (20 sources)Proton Pump InhibitorStart: 26-43-4007gfoq 2 tablets by mouth twice dailyPantoprazole 20 mg tablet,delayed release (DR/EC) Active 40 MG PO Twice daily November 13, 2024 11:24am Complies with drug therapyStart: 27-86-4770keyl 2 tablets by mouth once dailyPantoprazole 20 mg tablet,delayed release (DR/EC) Active 40 MG PO Daily November 13, 2024 11:24am Complies with drug therapyStart: 98-43-0422zyjg 1 tablet by mouth at breakfastpantoprazole DR (PROTONIX) 40 mg tablet TAKE 1 TABLET BY MOUTH 1/2 TO 1 HOUR BEFORE MORNING MEAL 10/21/2024 ActiveStart: 07-19-2024 End: 95-35-4898usza 1 tablet by mouth once dailyPantoprazole 20 mg tablet,delayed release (DR/EC) Discontinued 20 MG PO Daily July 19, 2024 1:00am November 13, 2024 11:24amStart: 01-26-2024 End: 10-31-2350ntxs 1 tablet by mouth once dailypantoprazole (ProtoNix) 40 MG EC tablet Take 40 mg by mouth Daily 01/26/2024 03/16/2024 DiscontinuedStart: 09-22-2023 End: 59-15-2859xqfe 1 tablet by mouth once dailyPantoprazole 40 mg tablet,delayed release (DR/EC) Discontinued 40 MG PO Daily 30 22 04September 22, 2023 12:00am October 20, 2023 1:07pm Take 1 tablet orally once a day.phentermine hydrochloride 37.5 mg oral tablet (20 sources)Sympathomimetic Amine AnorecticStart: 04-26-2023 End: 62-24-5123uefp 1 tablet by mouth before mealtimephentermine (Adipex-P) 37.5 MG tablet Take 37.5 mg by mouth in the morning. Take before meals. 05/26/2023 ActiveComment on above:Take 1 tablet by mouth daily before breakfast for 30 days.Take 1 tablet by mouth daily before breakfast for 90 days.pilocarpine hydrochloride 5 mg oral tablet (13 sources)Cholinergic Receptor AgonistStart: 18-76-1985ptju 1 tablet by mouth three times dailypilocarpine 5 MG tablet Take 1 tablet by mouth 3 (three) times a day. 2024 ActiveStart: 07-12-2024 End: 73-46-7342xcyh 1 tablet by mouth three times dailypilocarpine (SALAGEN) 5 mg tablet TAKE 1 TABLET BY MOUTH THREE TIMES A DAY 135 tablet 1 08/07/2024 0 09/06/2024 Activepravastatin sodium 20 mg oral tablet (20 sources)HMG-CoA Reductase InhibitorStart: 43-81-3737nprd 1 tablet by mouth once dailyPravastatin 20 MG tablet Take 1 tablet by mouth daily. 05/03/2024 ActiveStart: 01-26-2024 End: 39-02-3534xhts 1 tablet by mouth once dailypravastatin (Pravachol) 20 MG tablet Take 20 mg by mouth Daily 01/26/2024 03/16/2024 DiscontinuedStart: 10-20-2023 End: 31-25-2455hzbt 1 tablet by mouth once dailyPravastatin 20 mg tablet Discontinued 20 MG PO Daily October 20, 2023 12:00am October 20, 2023 1:08pmStart: 75-55-1808aseh 1 tablet by mouth once dailypravastatin (Pravachol) 20 MG tablet TAKE 1 TABLET BY MOUTH EVERY DAY FOR 30 DAYS 0 06/24/2023 ActivepredniSONE 10 mg oral tablet (20 sources)Start: 85-58-6944qbqt 1 tablet by mouth once daily at mealtime predniSONE 10 MG tablet Take 1 tablet by mouth As directed. Take 40mg daily x 3, decrease by 5mg every 3days until taking 10mg daily with food thereafter (no oral nsaids) 01/23/2025 ActiveStart: 49-53-7135cgdbdtICMI (DELTASONE) 10 mg tablet Indications: Other systemic lupus erythematosus with other organ involvement (HCC) Take 40mg daily x 3, decrease by 5mg every 3days until taking 10mg daily with food thereafter (no oral nsaids) 120 tablet 1 01/23/2025 Active Start: 06-22-2024 End: 31-51-5157bwdzofGFIX (DELTASONE) 10 mg tablet Indications: Other systemic lupus erythematosus with other organ involvement (HCC) Take 40mg daily x 3, decrease by 5mg every 3days until taking 10mg daily with food thereafter (no oral nsaids) 120 tablet 1 10/07/2024 ActiveStart: 01-12-2024 End: 80-39-7477lpgevcURZC (DELTASONE) 10 mg tablet Indications: Other systemic [...] 12:00am Complies with drug therapyStart: 05-12-2023 End: 98-29-8275risu 1 tablet by mouth once dailyPrednisone 10 mg tablet Active 10 MG PO Daily October 20, 2023 12:00am Complies with drug therapyStart: 05-12-2023 End: 08-51-4324lvdbriUBQM (DELTASONE) 10 mg tablet Indications: Other systemic lupus erythematosus with other organ involvement (HCC) Take 40mg daily x 5days, then decrease 5mg every 5days until 10mg daily thereafter 120 tablet 1 05/12/2023 10/05/2023 DiscontinuedStart: 47-29-5923upcrebNBGS (DELTASONE) 10 mg tablet Indications: Other systemic lupus erythematosus with other organ involvement (HCC) Take 40mg daily x 5days, then decrease 5mg every 5days until 10mg daily thereafter 120 tablet 1 08/17/2022 ActiveStart: 06-01-2022 End: 73-28-6457zjex 1 tablet by mouth once dailypredniSONE (DELTASONE) 10 mg tablet Take 10 mg by mouth once daily. 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 08/16/2023 Activethiamine 100 mg oral tablet (20 sources)Start: 48-25-3732qjzv 1 tablet by mouth once daily as neededThiamine Hcl (Vitamin B1) 100 mg tablet Active MG PO Daily as needed December 12, 2024 12:00am Complies with drug therapyStart: 06-01-2023 End: 72-22-0039levo 1 tablet by mouth once dailyThiamine 100 MG tablet Take 1 tablet by mouth daily. 10/27/2024 ActiveTirzepatide (Mounjaro) 2.5 MG/0.5ML Solution Auto-injector (1 source)Start: 24-37-4671Mlhzzwesreo (Mounjaro) 2.5 MG/0.5ML Solution Auto- injector Inject 2.5 mg under the skin every 7 days. 02/26/2025 Activetopiramate 25 mg oral tablet (20 sources)Start: 04-26-2023 End: 68-74-6584jyox 1 tablet by mouth twice dailytopiramate (TOPAMAX) 25 mg tablet Indications: Other chronic pain Take 1 tablet by mouth two times a day. 180 tablet 05/26/2023 03/18/2024 Discontinued (Course of therapy completed) Comment on above:Take 1 tablet by mouth two times a day.tretinoin 0.25 mg/ml topical cream (20 sources)RetinoidStart: 93-52-6936qzjokanec (Retin-A) 0.025 % cream Indications: Acne vulgaris Apply to face, once daily at evening/night time, 30 day supply 45 g 11 11/23/2024 ActiveStart: 46-18-5518czsbdrpva (Retin-A) 0.05 % cream Indications: Striae atrophic [...] Nucleoside Analog DNA Polymerase InhibitorStart: 10-03-2021 End: 46-11-1257bzyr 1 tablet by mouth once dailyacyclovir (ZOVIRAX) 400 mg tablet Take 400 mg by mouth once daily. 0 10/03/2021 04/26/2023 Discontinued (Discontinued by Patient)Comment on above:Take 400 mg by mouth once daily. amLODIPine 5 mg oral tablet (8 sources)Dihydropyridine Calcium Channel BlockerStart: 02-03-2024 End: 11-87-3158ilsv 1 tablet by mouth once dailyamLODIPine (Norvasc) 5 MG tablet Take 5 mg by mouth Daily 02/03/2024 03/16/2024 DiscontinuedStart: 10-07-2020 take 1 tablet by mouth once dailyamLODIPine (NORVASC) 2.5 MG tablet Take 1 tablet by mouth daily 30 tablet 3 10/07/2020 ActiveazaTHIOprine 50 mg oral tablet (20 sources)Purine AntimetaboliteStart: 05-24-2023 End: 13-18-6491rwvz 1 tablet by mouth three times dailyAzathioprine 50 mg tablet Discontinued 50 MG PO Three times daily October 20, 2023 12:00am October 11:22amStart: 05-24-2023 End: 00-31-1779busm 3 tablets by mouth once dailyazaTHIOprine (Imuran) 50 MG tablet Take 150 mg by mouth Daily 05/24/2023 02/28/2025 Discontinued (Therapy completed)Start: 11-09-1305ynot 50 mg by mouth twice dailyAzathioprine Active 50 MG PO Twice daily October 20, 2023 12:00amStart: 13-81-4089pkhw 3 tablets by mouth three times dailyazaTHIOprine (Imuran) 50 mg tablet Take 3 tablets (150 mg) by mouth 3 times a day. 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 HOLD IF ON ANTIBIOTICS OR ILL. 90 tablet 3 02/16/2023 ActiveStart: 08-19-2022 End: 55-83-7166dcxa 2 tablets by mouth once daily at mealtimeazaTHIOprine (IMURAN) 50 mg tablet Indications: Other systemic lupus erythematosus with other organinvolvement (HCC) , Encounter for care home current use of azathioprine Take 2tab daily by mouth with food. Hold if on antibiotics or ill. 60 tablet 3 08/19/2022 11/24/2022 DiscontinuedStart: 06-15-2022 End: 12-34-0146bgcg 1 tablet by mouth once daily at [...] (20 sources)B Lymphocyte Stimulator-specific InhibitorStart: 11-13-2024 End: 60-96-3892njasnzfog (Benlysta) Discontinued IV every month November 13, 2024 12:00am March 13, 2025 9:07amStart: 72-48-3269kfhuwhjpj (Benlysta) Active IV every month November 13, 2024 12:00am Complies with drug therapyStart: 11-13-2024 Start: 17-51-3428Iurdwyjh 200 MG/ML Solution Auto-injector Inject 200 mg under the skin every 7 days. 09/18/2024 ActiveStart: 02-04-2023 End: 96-39-3373cixfdh 200 mg by subcutaneous injection every weekBelimumab [...] 10 mg oral tablet (20 sources) End: 16-77-4070Ctlgpl 10 mg tab 2 0 04/26/2023 Discontinued (Discontinued by Patient)Comment on above:2dexamethasone 2 mg oral tablet (9 sources)CorticosteroidStart: 01-20-2024 End: 09-94-2058qilECKQIytuog (Decadron) 2 MG tablet Indications: Lumbosacral radiculopathy at L5 2mg 3 pills po X3days,2 pills po daily X3 days , then 1 pill po daily X3 days then stop 9 days 18 pills 18 tablet 1 01/20/2024 03/16/2024 Discontinueddicyclomine hydrochloride 10 mg oral capsule (20 sources)AnticholinergicStart: 01-25-2024 End: 46-42-1645eojg 1 capsule by mouth in the morning, then take 1 capsule by mouth in the evening, then take 1 capsule by mouth at bedtimedicyclomine (Bentyl) 10 MG capsule Take 10 mg by mouth in the morning and 10 mg in the evening and 10 mg before bedtime. 01/25/2024 03/16/2024 DiscontinuedStart: 09-22-2023 End: 74-65-0684vwmp 1 capsule by mouth twice daily as needed for painDicyclomine 10 mg capsule Discontinued 10 MG PO Twice daily as needed for abdominal pain 60 30 5 September 22, 2023 12:00am October 20, 2023 1:07pm Take 1 capsule orally twice a day prndiphenhydrAMINE (15 sources)Histamine-1 Receptor AntagonistStart: 01-24-2025 End: 77-88-978591 mg, INTRAVENOUS, ONCE, 1 dose, On Wed01/24/25 at 0930Start: 01-11-2025 End: 20-58-4871xucf 1 dose by mouth once25 mg, ORAL, ONCE, 1 dose, On Wed01/11/25 at 1430Start: 12-14-2024 End: 81-67-8676jrsl 1 dose by mouth once25 mg, ORAL, ONCE, 1 dose, On Wed12/14/24 at 1430Start: 11-29-2024 End: 00-89-487520 mg, INTRAVENOUS, ONCE, 1 dose, On Wed11/29/24 at 1000Start: 11-16-2024 End: 49-07-3337oons 1 dose by mouth once25 mg, ORAL, ONCE, 1 dose, On Wed11/16/24 at 1400Start: 10-31-2024 End: 98-13-002895 mg, INTRAVENOUS, ONCE, 1 dose, On Wed10/31/24 at 1000Start: 10-19-2024 End: 15-64-7332uqmb 1 dose by mouth once25 mg, ORAL, ONCE, 1 dose, On Wed10/19/24 at 1430Start: 2024 End: 12-45-0054ollp 1 dose by mouth once25 mg, ORAL, ONCE, 1 dose, On Wed10/04/24 at 1430Start: 10-02-2024 End: 94-98-721496 mg, INTRAVENOUS, ONCE, 1 dose, On Wed10/02/24 at 0900Start: 09-18-2024 End: 36-01-4398yabt 1 dose by mouth once25 mg, ORAL, ONCE, 1 dose, On Wed09/18/24 at 1300Start: 09-06-2024 End: 48-95-063730 mg, INTRAVENOUS, ONCE, 1 dose, On Wed09/06/24 at 0930Start: 08-08-2024 End: 90-58-371388 mg, INTRAVENOUS, ONCE, 1 dose, On Wed08/08/24 at 0930Start: 07-11-2024 End: 08-69-777549 mg, INTRAVENOUS, ONCE, 1 dose, On Wed07/11/24 at 0900Start: 06-13-2024 End: 60-82-305774 mg, INTRAVENOUS, ONCE, 1 dose, On Wed06/13/24 at 1000Start: 05-19-2024 End: 49-93-955200 mg, INTRAVENOUS, ONCE, 1 dose, On Wed05/19/24 at 1000 famotidine 20 mg oral tablet (19 sources)Histamine-2 Receptor AntagonistStart: 04-10-2024 End: 55-96-8893mbzp 1 tablet by mouth at bedtimefamotidine (Pepcid) 20 MG tablet Indications: LPRD (laryngopharyngeal reflux disease) Take 1 tablet(20 mg) by mouth at bedtime 90 tablet 04/10/2024 09/04/2024 Discontinued (Therapy completed)Start: 07-21-2020 End: 46-92-2001ixpr 1 tablet by mouth once daily at [...] mg/mg topical ointment (20 sources)Start: 11-22-2023 End: 72-21-4743Yzrwuaosvq 0.1 % ointment Discontinued 1 APPLIC TOPICAL Three times daily 15 10 0 November 22, 2023 12:00am December 16, 2023 2:12pmhydrocortisone 100 mg injection (9 sources)CorticosteroidStart: 01-24-2025 End: 96-58-169347 mg, INTRAVENOUS, ONCE, 1 dose, On Wed01/24/25 at 0930Start: 11-29-2024 End: 96-26-835825 mg, INTRAVENOUS, ONCE, 1 dose, On Wed11/29/24 at 1000Start: 10-31-2024 End: 33-85-504516 mg, INTRAVENOUS, ONCE, 1 dose, On Wed10/31/24 at 1000Start: 10-02-2024 End: 98-71-875924 mg, INTRAVENOUS, ONCE, 1 dose, On Wed10/02/24 at 0900Start: 09-06-2024 End: 00-73-273245 mg, INTRAVENOUS, ONCE, 1 dose, On Wed09/06/24 at 0930Start: 08-08-2024 End: 79-25-380158 mg, INTRAVENOUS, ONCE, 1 dose, On Wed08/08/24 at 0930Start: 07-11-2024 End: 56-63-290056 mg, INTRAVENOUS, ONCE, 1 dose, On Wed07/11/24 at 0900Start: 06-13-2024 End: 15-45-252025 mg, INTRAVENOUS, ONCE, 1 dose, On Wed06/13/24 [...] oral capsule (3 sources)Azole AntifungalStart: 04-03-2024 End: 93-99-3533jxrd 1 capsule by mouth once dailyitraconazole (Sporanox) 100 MG capsule Indications: Oral thrush Take 1 capsule (100 mg) by mouth Daily for 5 days 5 capsule 04/03/2024 04/08/2024 Expiredomeprazole 40 mg delayed release oral capsule (20 sources)Proton Pump InhibitorStart: 03-16-2024 End: 85-61-0903vrid 1 capsule by mouth once dailyOmeprazole 40 mg capsule,delayed release(DR/EC) Discontinued 40 MG PO Daily 30 30 3 March 16, 2024 12:00am July 19, 2024 10:52amStart: 08-09-2020 End: 02-85-4322xvpp 1 capsule by mouth twice dailyomeprazole (PRILOSEC) [...] mg oral capsule (20 sources)Start: 12-15-2023 End: 73-26-2082tlba 1 capsule by mouth in the morning, then take 1 capsule by mouth in the evening, then take 1 capsule by mouth at bedtimepregabalin (Lyrica) 100 MG capsule Indications: Lumbosacral radiculopathy Take 1 capsule (100 mg) by mouth in the morning and 1 capsule (100 mg) in the evening and 1 capsule (100 mg) before bedtime. 90 capsule 2 12/15/2023 03/16/2024 DiscontinuedStart: 01-73-9203oiqo 3 capsules by mouth once daily as needed for painPregabalin 75 mg capsule Active 225 MG PO Daily as needed for nerve pain October 20, 2023 12:00am Complies with drug therapyStart: 18-39-5657cvbw 225 mg by mouth once daily Pregabalin Active 225 MG PO Daily October 20, 2023 12:00amStart: 47-30-6538lzzk 1 capsule by mouth three times dailypregabalin (Lyrica) 100 MG capsule Indications: Lumbosacral radiculopathy TAKE 1 CAPSULE BY MOUTH THREE TIMES A DAY for 30 90 capsule 2 07/06/2023 ActiveStart: 10-13-2021 End: 86-91-3682vsgj 1 capsule by mouth three times dailypregabalin [...] FUMARATE/FA ( VITAMIN ORAL) (2 sources) End: 83-60-3816jowk 1 tablet by mouth once dailyPRENATAL VIT/IRON [...] tablet (9 sources)Factor Xa InhibitorStart: 12-06-2023 End: 78-60-6089yjir 1 tablet by mouth at mealtimeXarelto 15 MG tablet Take 15 mg by mouth in the evening. Take with meals 12/06/2023 03/16/2024 Discontinued simvastatin 20 mg oral tablet (20 sources)HMG-CoA Reductase InhibitorStart: 03-10-2022 End: 67-13-2170wyvxqgpnsuq (ZOCOR) 20 mg tabletterbinafine 250 mg oral tablet (3 sources)Allylamine AntifungalStart: 04-02-2024 End: 61-10-0413nboj 1 tablet by mouth once dailyterbinafine (LamISIL) 250 MG tablet Indications: Oral thrush Take 1 tablet (250 mg) by mouth Daily for 5 days 5 tablet 04/02/2024 04/03/2024 Discontinuedtriamcinolone acetonide 10 mg/ml injectable suspension (20 sources)CorticosteroidStart: 02-14-2025 End: 71-15-7207lcidkpwxeijrm acetonide (Kenalog) injection 2.5 mgStart: 02-14-2025 End: .5 mg, Intra-lesional, Once, On Wed02/14/25 at 1545, For 1 dose Start: 11-23-2024 End: 40-49-2338seldtdkgeikka 10 MG/ML injection 0.25 mL by Intralesional route once. 11/23/2024 ActiveStart: 82-34-4238bvsbpodvxfwxh acetonide (Kenalog) injection 2.5 mgStart: 95-01-8111Jguahzcofebjs Acetonide 0.025 % lotion 1 application 06/23/2022 Activetriamcinolone acetonide (KENALOG) 0.025 % lotion Apply 1 Application topically as needed. Activevitamin b12 1 mg/ml injectable solution (17 sources)Vitamin V74Zyhcp: 11-29-2024 End: 70-26-0075jomunx 1 dose by intramuscular injection once1,000 mcg, INTRAMUSCULAR, ONCE, 1 dose, On Wed11/29/24 at 1000Start: 10-31-2024 End: 92-59-3692imcbtz 1 dose by intramuscular injection once1,000 mcg, INTRAMUSCULAR, ONCE, 1 dose, On Wed10/31/24 at 1000Start: 10-02-2024 End: 96-17-6946eabnpw 1 dose by intramuscular injection once1,000 mcg, INTRAMUSCULAR, ONCE, 1 dose, On Wed10/02/24 at 0900Start: 09-06-2024 End: 43-27-3062drovpw 1 dose by intramuscular injection once1,000 mcg, INTRAMUSCULAR, ONCE, 1 dose, On Wed09/06/24 at 1000Start: 08-08-2024 End: 99-30-1568dixlze 1 dose by intramuscular injection once1,000 mcg, INTRAMUSCULAR, ONCE, 1 dose, On Wed08/08/24 at 0930Start: 07-11-2024 End: 81-62-4755xgsdty 1 dose by intramuscular injection once1,000 mcg, INTRAMUSCULAR, ONCE, 1 dose, On Wed07/11/24 at 0900Start: 06-13-2024 End: 64-77-5554jrotzk 1 dose by intramuscular injection once1,000 mcg, INTRAMUSCULAR, ONCE, 1 dose, On Wed06/13/24 at 1000Start: 04-26-2024 End: 64-78-7916amwgwo 1 dose by intramuscular injection once1,000 mcg, INTRAMUSCULAR, ONCE, 1 dose, On Wed04/26/24 at 0930Start: 03-23-2024 End: 91-06-2332fehhoi 1 dose by intramuscular injection once1,000 mcg, INTRAMUSCULAR, ONCE, 1 dose, On Wed03/23/24 at 1030Start: 02-21-2024 End: 63-53-2712nyweas 1 dose by intramuscular injection once1,000 mcg, INTRAMUSCULAR, ONCE, 1 dose, On Wed02/21/24 at 1100Start: 01-25-2024 End: 59-33-3753maxzdw 1 dose by intramuscular injection once1,000 mcg, INTRAMUSCULAR, ONCE, 1 dose, On Wed01/25/24 at 1130Start: 91-84-9430cdecfq 1 mL by subcutaneous injection every 30 dayscyanocobalamin (VITAMIN B-12) 1,000 mcg/mL injection Inject 1 mL (1,000 mcg total) under the skin every 30 (thirty) days. 12/28/2023 ActiveStart: 12-27-2023 End: 01-06-9916cqohmjndzwvmjs 1,000 mcg injectionStart: 11-29-2023 End: 69-62-5871vsqmyiroryaqgn 1,000 mcg injectionStart: 10-27-2023 End: 27-62-8011dqaqucyvvzcwvo 1,000 mcg injectionStart: 09-30-2023 End: 79-06-7520gfwlkvrqcxpokr 1,000 mcg injection Problems Active Problems Problem ClassificationProblemDateDocumented DateEpisodic/ChronicAbdominal pain (20 sources)Finding of sensation of abdomen; Translations: [Unspecified abdominal pain]41-63-7089OsozoqwzVtgmnjz disorders (20 sources)Anxiety; Translations: [Anxiety disorder, unspecified]Onset: [id number] infection; unspecified site (3 sources)Bacterial infection due to Pseudomonas; Translations: [Other bacterial infections of unspecified site]Onset: 071223-17-1623Cmgzvznv Cardiac dysrhythmias (20 sources)Postural orthostatic tachycardia syndrome ; Translations: [POTS (postural orthostatic tachycardia syndrome)]Onset: 36-68-0134FqpzwszTejoiktkdo and other anemia (9 sources)Anemia of chronic disease; Translations: [Anemia in other chronic diseases classified elsewhere]ChronicDeficiency and other anemia (1 source)Anemia in other chronic diseases classified elsewhere; Translations: [Anemia of chronic disease]Onset: 96-00-3272CrblwiiBxvcgghe mellitus without complication (3 sources)Type 2 diabetes mellitus; Translations: [Type 2 diabetes mellitus without complications]Onset: 033632-66-5095KwmdznaGtfyooss of white blood cells (1 source)Leukocytosis; Translations: [Elevated white blood cell count, unspecified]Onset: 490889-24-6015AfzxonlKydjqcoou of lipid metabolism (20 sources)Hyperlipidemia; Translations: [Hyperlipidemia, unspecified]Onset: 828336-50-8905HynufolUmahzdqnlp disorders (20 sources)Laryngopharyngeal reflux; Translations: [Gastro-esophageal reflux disease without esophagitis]Onset: 192208-16-0306RjsljenFpddonqoe hypertension (20 sources)Essential hypertension; Translations: [Essential (primary) hypertension]Onset: 248140-60-4846KsnljysRahsl of unknown origin (1 source)Pyrexia of unknown origin; Translations: [Fever, unspecified] 03-32-6109XavlsiwuYcljsrqn disorders (20 sources)Hypogammaglobulinemia; 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]Onset: 387905-98-9000AsmjgixYdbkzuwaseokp and screening for infectious disease (20 sources)Anti-nuclear factor positive; Translations: [Other specified abnormal immunological findings in serum]Onset: 73-16-2228ZxtwhrkrCnrnslr and fatigue (20 sources)Malaise and fatigue; Translations: [Chronic fatigue, unspecified] Onset: 41-55-4146IrphpkmYblezzyxd disorders (20 sources)Excessive and frequent menstruation with irregular cycle; Translations: [Menometrorrhagia]Onset: 26-57-6958JlcolybXqoa disorders (20 sources)Recurrent depression; Translations: [Major depressive disorder, recurrent, unspecified]Onset: 947500-72-4662KojrafkLzbneir (3 sources)Candidiasis of mouth; Translations: [Candidal stomatitis]04-02-2024 EpisodicNeoplasms of unspecified nature or uncertain behavior (2 sources)Neoplasm of uncertain behavior of skin; Translations: [Neoplasm of uncertain behavior of skin]30-47-5814LpsxfhxvUptpcqujcnyx breast conditions (20 sources)Mammary duct ectasia; 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]Onset: 671528-39-1053ClxibzpXnezedkohgbq breast conditions (20 sources)Discharge from nipple; Translations: [Nipple discharge]Onset: 454291-31-0105HjkxbxwiHustgpqrxig deficiencies (20 sources)Vitamin D deficiency; Translations: [Vitamin D deficiency, unspecified]Onset: 55-61-2460QusakrkPisszwbxxupmwk (20 sources)Degenerative joint disease involving multiple joints; 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]Onset: 70-26-4010GaiilotXqfvszotalsr (20 sources)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; Translations: [Other osteoporosis without current pathological fracture]Onset: 166014-82-2544 ChronicOther aftercare (3 sources)Drug therapy status; Translations: [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]EpisodicOther aftercare (1 source)Polypharmacy ; Translations: [Other care home (current) drug therapy] EpisodicOther aftercare (1 source)Long-term current use of drug therapy; Translations: [Encounter for care home current use of azathioprine]46-36-7670SksdreftWaidu circulatory disease (20 sources)Raynaud's disease; Translations: [Raynaud's syndrome without gangrene]Onset: 947873-43-7113QoxuronIkwyy circulatory disease (2 sources)Spider nevus; Translations: [Nevus, non-neoplastic]27-35-3044Vpitixbw Other congenital anomalies (1 source)Emanuel-Danlos syndrome; 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, unspecified]90-62-7106FwyayyhAqlvx connective tissue disease (1 source)Pain in left foot; Translations: [Pain in left foot]Onset: 09-14-2018 EpisodicOther connective tissue disease (1 source)Pain in right foot; Translations: [Pain in right foot]Onset: 67-44-4376FiekadjbSvoge connective tissue disease (20 sources)Paraparesis; Translations: [Other symptoms and signs involving the musculoskeletal system]Onset: 865419-86-7536BfcbfrnkXhrdy connective tissue disease (3 sources)Pain of bilateral hands; Translations: [Pain in right hand]10-05-2023 EpisodicOther ear and sense organ disorders (2 sources)Pain of ear structure; Translations: [Otalgia, right ear]04-10-2024 EpisodicOther female genital disorders (2 sources)Abnormal uterine bleeding; Translations: [Abnormal uterine and vaginal bleeding, unspecified]38-85-8007DhqjmmlZhshh gastrointestinal disorders (3 sources)Diarrhea, unspecified; Translations: [Diarrhea]92-29-9421Lhvfibad Other gastrointestinal disorders (17 sources)Abdominal mass; Translations: [Intra-abdominal and pelvic swelling, mass and lump, unspecified site]99-35-6723NccfjxbtWolen gastrointestinal disorders (17 sources)Burning sensation; Translations: [Other specified symptoms and signs involving the digestive systemand abdomen]97-35-1552OpdnnimnTlnyo gastrointestinal disorders (17 sources)Abdominal bloating; Translations: [Abdominal distension (gaseous)] 34-15-3323GrgdbqtfVgqnz gastrointestinal disorders (17 sources)Constipation; Translations: [Constipation, unspecified]12-12-2024 EpisodicOther infections; including parasitic (1 source)Recurrent infectious disease; Translations: [Unspecified infectious disease]69-14-6720OwsaytpaHiexg inflammatory condition of skin (20 sources)Discoid lupus erythematosus; 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]Onset: 349412-31-7493XzydnejBcwxg inflammatory condition of skin (4 sources)Discoid lupus erythematosus; Translations: [DISCOID LUPUS ERYTHEMATOSUS]Onset: 67-81-0226EfvfphgWjjtl inflammatory condition of skin (10 sources)Lupus erythematosus; 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] Onset: 535837-01-1929NjaqomuKoaff inflammatory condition of skin (2 sources)Lupus erythematosus tumidus; 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]79-36-4999LymtujaMmmis inflammatory condition of skin (2 sources)Seborrheic dermatitis; Translations: [Other seborrheic dermatitis] 85-57-1808YegaoywcFjyxv injuries and conditions due to external causes (1 source)Delayed healing of wound; Translations: [Other injury of unspecified body region, subsequent encounter]EpisodicOther liver diseases (9 sources)Steatosis of liver; Translations: [Fatty (change of) liver, not elsewhere classified]Onset: 761002-89-7042PobebuyLvkqj lower respiratory disease (2 sources)Snoring; Translations: [Snoring]EpisodicOther nervous system disorders (20 sources)Chronic pain syndrome; Translations: [Chronic pain syndrome]Onset: 410209-92-3473FjtswjhRpdwz nervous system disorders (20 sources)Chronic pain; Translations: [Other chronic pain]12-52-9157Yblyxuc Other nervous system disorders (20 sources)Disorder of autonomic nervous system; Translations: [Disorder of the autonomic nervous system, unspecified]Onset: 964231-32-5380TrfkvnjVdqmu nervous system disorders (13 sources)Other chronic pain; Translations: [Other chronic pain]Onset: 647787-79-7799PnjxdhbRidjq nervous system disorders (1 source)Numbness; Translations: [Anesthesia of skin]58-83-5198UipaotrxBvbpz nervous system disorders (4 sources)Cold extremity; Translations: [Unspecified disturbances of skin sensation]71-77-5238PocyuiyqAkynn non-traumatic joint disorders (1 source)Hypermobility syndrome; Translations: [Other specific joint derangements of unspecified joint, not elsewhere classified]39-73-2811Kugkgay Other non-traumatic joint disorders (1 source)Other specific joint derangements of unspecified joint, not elsewhere classified; 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]Onset: 09-19-2024 ChronicOther nutritional; endocrine; and metabolic disorders (20 sources)Obesity; Translations: [Obesity, unspecified]Onset: 09-07-2022 03-16-9447XqxlrarEeumh nutritional; endocrine; and metabolic disorders (20 sources)Body mass index 40+ - severely obese; Translations: [Morbid (severe) obesity due to excess calories]Onset: 46-87-5763EnlosavEfgsv nutritional; endocrine; and metabolic disorders (20 sources)Insulin resistance; Translations: [Insulin resistance, unspecified] Onset: 733542-00-9444ObdrmudVnfdf nutritional; endocrine; and metabolic disorders (2 sources)Morbid obesity; Translations: [Morbid (severe) obesity due to excess calories]37-71-7269HreqtaeCfzob nutritional; endocrine; and metabolic disorders (2 sources)Morbid (severe) obesity due to excess calories; Translations: [Morbid (severe) obesity due to excess calories (Multi)]Onset: 69-38-8517JollnsiGevjf nutritional; endocrine; and metabolic disorders (1 source)Childhood obesity; Translations: [Obesity, unspecified]03-14-2025 ChronicOther screening for suspected conditions (not mental disorders or infectious disease) (20 sources)Elevated C-reactive protein; Translations: [Elevated C-reactive protein (CRP)]Onset: 98-10-3594JhjabnhpFzehk skin disorders (5 sources)Hidradenitis suppurativa; Translations: [Hidradenitis suppurativa] 32-83-7609NcqevnjrZxziv skin disorders (4 sources)Acne vulgaris; Translations: [Acne vulgaris]45-97-9280PbbdzojfSnqpc upper respiratory disease (20 sources)Chronic pharyngolaryngitis; Translations: [Chronic laryngitis]Onset: 769100-17-4265NtzvdhwZwkprsx cyst (1 source)Unspecified ovarian cyst, left side; Translations: [UNSPECIFIED OVARIAN CYST LEFT SIDE]Onset: 14-31-7107ProycghvYfaqiyexaf and visceral atherosclerosis (2 sources)Peripheral vascular disease; Translations: [Peripheral vascular disease, unspecified]91-13-5558WymyqopJjmwxxoc codes; unclassified (20 sources)Obstructive sleep apnea syndrome; Translations: [Obstructive sleep apnea (adult) (pediatric)]Onset: 16-65-4526SqlatbeGzdeurbz codes; unclassified (3 sources)Obstructive sleep apnea (adult) (pediatric); Translations: [Obstructive sleep apnea (adult) (pediatric)]Onset: 06-11-8902SrkatmxDvrtqfyp codes; unclassified (1 source)Sleep apnea; Translations: [Sleep apnea, unspecified]Onset: 05-20-2022 82-44-3909ZwtzzncLajuplhd codes; unclassified (1 source)Family history of hereditary disease; Translations: [Family history of other specified conditions]EpisodicResidual codes; unclassified (1 source)Family history of malignant neoplasm of breast; Translations: [FAMILY HX MALIG NEOPLASM OF BREAST]Onset: 06-41-2597PgcptxvcPnriysal codes; unclassified (1 source)Family history of malignant neoplasm of digestive organs; Translations: [FAM HX MALIG NEOPLASM DIGESTIV ORGN]Onset: 94-03-7009Ocwutcld Residual codes; unclassified (1 source)Bilateral lower limb edema; Translations: [Localized edema]07-13-2023 EpisodicResidual codes; unclassified (1 source)Finding of mouth region; Translations: [Unspecified symptoms and signs involving general sensationsand perceptions]27-31-3261OxgeemoyElyvujvg codes; unclassified (1 source)FH: Cardiovascular disease; Translations: [Family history of ischemic heart disease and other diseases of the circulatory system]98-67-2358Xcqrrksi Residual codes; unclassified (2 sources)Family history of cancer; Translations: [Family history of malignant neoplasm, unspecified]81-74-1770RwijdiqyLgjbjoxz codes; unclassified (1 source)FH: Respiratory disease; Translations: [Family history of other diseases of the respiratory system]98-34-3945JwdepmfuCkdjkmfr codes; unclassified (1 source)FH: Aortic aneurysm; Translations: [Family history of ischemic heart disease and other diseases of the circulatory system]87-14-0325QghzeggkWnezgzrd codes; unclassified (2 sources)Pain; Translations: [Pain, unspecified]17-24-4362FzdgamsaRegcrjsm codes; unclassified (1 source)Tobacco plgq18-97-2301FylqodewQlusfblevt arthritis and related disease (4 sources)Rheumatoid arthritis; Translations: [Rheumatoid arthritis, unspecified]Onset: 769834-25-9264JbijunyLsiw and subcutaneous tissue infections (9 sources)Pilonidal cyst; Translations: [Pilonidal cyst without abscess]Onset: 167492-82-5210RliyeyaeGapkunfxwil; intervertebral disc disorders; other back problems (20 sources)Bilateral inflammation of sacroiliac joint; Translations: [Sacroiliitis, not elsewhere classified]Onset: 053039-35-6780Kmdiblz Substance-related disorders (20 sources)Tobacco user; Translations: [Nicotine dependence, unspecified, uncomplicated]Onset: 177835-89-7260YwasojhSurogxll lupus erythematosus and connective tissue disorders (20 sources)Systemic lupus erythematosus; Translations: [Other organ or system involvement in systemic lupus erythematosus]Onset: 40-66-1853OyvfssqColvonh disorders (20 sources)Thyroid nodule; Translations: [Nontoxic single thyroid nodule]Onset: 111962-34-3904AllshcfEkboaegnzmfj (1 source)Supraventricular tachycardia, unspecified (CMS-HCC); Translations: [Supraventricular tachycardia, unspecified (CMS-HCC)]Onset: 07-13-2023 Unclassified (8 sources)Call Dr. Donaldson office to schedule a follow up appointment if you do not already have one scheduled Past or Other Problems Problem ClassificationProblemDateDocumented DateEpisodic/ChronicCardiac dysrhythmias (20 sources)Tachycardia, unspecified; Translations: [Tachycardia]Onset: 10-15-2021 Resolved: 15-60-8293BbeeuvoiGsiz; stupor; and brain damage (20 sources)Daytime somnolence; Translations: [Somnolence]Onset: 05-20-2022 EpisodicConditions associated with dizziness or vertigo (20 sources)Dizziness; Translations: [Dizziness and giddiness]Onset: 06-01-2023 63-02-9336XkdmfbvyGkictxxtbi and other anemia (20 sources)Megaloblastic anemia due to vitamin B>12< deficiency; Translations: [Other megaloblastic anemias, not elsewhere classified]Onset: 03-04-2022 79-48-8100AsnjgmjfUhqldeuogc and other anemia (1 source)Anemia, unspecified; Translations: [ANEMIA UNSPECIFIED]Onset: 67-35-2076FcewfmgcUkowblpdtg and other anemia (20 sources)Anemia; Translations: [Anemia, unspecified]Onset: 03-11-2022 75-93-2384SohsesbeCbzzokaqqu and other anemia (20 sources)Iron deficiency anemia; Translations: [Other iron deficiency anemias]Onset: 190011-26-9982SqaypcwkPbuerueuml and other anemia (1 source)Other megaloblastic anemias, not elsewhere classified; Translations: [Megaloblastic anemia due to vitamin B12 deficiency]Onset: 52-05-0359Imvfdlan Deficiency and other anemia (1 source)Other iron deficiency anemias; Translations: [Other iron deficiency anemia]Onset: 95-58-5307LqasabioDnlixbxt mellitus without complication (20 sources)Increased glucose level; Translations: [Other abnormal glucose] Onset: 38-44-5081EaqtfcpyNtxjlrwc of mouth; excluding dental (20 sources)Oral lesion; Translations: [Unspecified lesions of oral mucosa] Onset: 064866-72-6367IrxqoswmF Codes: Fall (1 source)Fall on same level from slipping, tripping and stumbling without subsequent striking against object, initial encounter; Translations: [FALL SAME LVL SLIP NO STRK OBJ INIT]Onset: 77-64-9626SavxfewjVkylcmxb; including migraine (20 sources)Headache; Translations: [Nonintractable episodic headache]Onset: 916755-02-2156WhozmvqnMkfgigfcfd infection (20 sources)Clostridium difficile diarrhea; Translations: [Enterocolitis due to Clostridium difficile, not specified as recurrent]Onset: EpisodicJoint disorders and dislocations; trauma-related (1 source)Unspecified subluxation of right patella, initial encounter; Translations: [UNS SUBLUXATION RT PATELLA INITIAL]Onset: 93-05-6085Jsbtupqj Lymphadenitis (20 sources)Lymphadenopathy; Translations: [Enlarged lymph nodes, unspecified] Onset: 769803-39-3876RkgxtapdRtnrwqw and fatigue (4 sources)Malaise and fatigue; Translations: [Other malaise]Onset: 11-29-2024 81-84-2140YzwwtybnZtgtfuzeibi deficiencies (20 sources)Cobalamin deficiency; Translations: [Deficiency of other specified B group vitamins]Onset: 99-03-6005LpomugqnHdmod aftercare (20 sources)Drug therapy finding; Translations: [Other terminal operations supervisor (current) drug therapy]Onset: 30-32-5933UpsnyntcXysey aftercare (20 sources)H/O: high risk medication; Translations: [Other care home (current) drug therapy]Onset: 413531-08-2855UzghznytHiptb aftercare (1 source)Other care home (current) drug therapy; Translations: [OTH OCULARIST 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 THERAPY]Onset: 50-57-9783AakkgrqhLkqxq aftercare (20 sources)Long-term current use of systemic steroid; Translations: [lobsterman (current) use of systemic steroids]Onset: 771555-02-5821PxxxefnpGxvho connective tissue disease (20 sources)Pain in toe; Translations: [Pain in right toe(s)]Onset: 03-05-2021 EpisodicOther connective tissue disease (20 sources)Fibromyalgia; Translations: [Fibromyalgia]Onset: 62-19-3202Kbpjngdj Other connective tissue disease (20 sources)Other symptoms and signs involving the musculoskeletal system; Translations: [Other musculoskeletalsymptoms referable to limbs]Onset: 010448-54-3742ZdzsbwnlQryrp connective tissue disease (20 sources)Enthesopathy of hip region; Translations: [Other specified enthesopathies of unspecified lower limb, excluding foot]Onset: 07-06-2023 67-30-7987OqmxzeorVheuh connective tissue disease (20 sources)Muscle pain; Translations: [Myalgia, unspecified site]Onset: 522935-59-8037JbcawbacNxiay connective tissue disease (2 sources)Pain in lower limb; Translations: [Pain in leg, unspecified] 68-48-8832PuuiftraRszlb gastrointestinal disorders (20 sources)Diarrhea; Translations: [Diarrhea, unspecified]Onset: 03-07-2024 41-33-3789QulrqtioLnpaa hematologic conditions (20 sources)ESR raised; Translations: [Elevated erythrocyte sedimentation rate] Onset: 36-03-7355OthxhuofWziqy hematologic conditions (9 sources)Elevated erythrocyte sedimentation rate; Translations: [ELEVATED ERYTHROCYTE SED RATE]Onset: 03-05-2021 Resolved: 17-45-1871KtnwxarrUzgpa infections; including parasitic (20 sources)Disorder due to infection; Translations: [Personal history of other infectious and parasitic diseases]Onset: 698935-33-7108SrrgwbseUamqg infections; including parasitic (1 source)Personal history of other infectious and parasitic diseases; Translations: [Frequent infections]Onset: 07-17-3275QuxqrlchVwlfg injuries and conditions due to external causes (3 sources)Unspecified injury of right lower leg, initial encounter; Translations: [UNS INJURY RT LOWER LEG INITIAL ENC]Onset: 40-70-6701Cfewuuyn Other lower respiratory disease (20 sources)Dyspnea; Translations: [Shortness of breath]Onset: 07-13-2023 44-27-3712XqtjjxoeThxal lower respiratory disease (2 sources)Shortness of breath; Translations: [Shortness of breath]Onset: 61-41-3120HuumyqpiFnckb nervous system disorders (20 sources)Ataxia; Translations: [Ataxia, unspecified]Onset: 05-31-2014 70-60-3645HmxrkejjWrcjx nervous system disorders (20 sources)Skin sensation disturbance; Translations: [Unspecified disturbances of skin sensation]Onset: 979589-20-5480DbtvvgozUglcd nervous system disorders (20 sources)Paresthesia; Translations: [Paresthesia of skin]Onset: 11-08-2023 65-73-6303AjmikrikIaorj non-traumatic joint disorders (20 sources)Hip pain; Translations: [Pain in unspecified hip]Onset: 07-06-2023 37-58-5362FekmcoqgQzobe non-traumatic joint disorders (5 sources)Pain in right knee; Translations: [PAIN IN RIGHT KNEE]Onset: 52-70-3225RjzmhwdgToeoq non-traumatic joint disorders (1 source)Effusion, right knee; Translations: [EFFUSION RIGHT KNEE]Onset: 45-43-0753DqcnqmmoSxjmd non-traumatic joint disorders (20 sources)Bilateral wrist pain; Translations: [Pain in right wrist]Onset: 895136-53-8574IqmkbihjPjbdo nutritional; endocrine; and metabolic disorders (20 sources)Obese class II; Translations: [Obesity, unspecified]Onset: 03-09-2022 Resolved: 427850-42-0022FuyugpyEiyqa nutritional; endocrine; and metabolic disorders (20 sources)Body mass index 30+ - obesity; Translations: [Obesity, unspecified] Onset: 05-31-2014 Resolved: 418143-17-2085RqmeoalJsfoe nutritional; endocrine; and metabolic disorders (20 sources)History of nutritional deficiency; Translations: [Personal history of other endocrine, nutritional and metabolic disease]Onset: 10-05-2023 99-03-8484ZrjyjpqcClvqz skin disorders (20 sources)Eruption; Translations: [Rash and other nonspecific skin eruption] Onset: 90-13-7357SsdqqwvhMuqsn skin disorders (20 sources)Loss of hair; Translations: [Nonscarring hair loss, unspecified] Onset: 80-00-3827BzjawvxkQjvyc upper respiratory disease (20 sources)Hoarse; Translations: [Dysphonia]Onset: 163778-04-4053Vcbrwtau Residual codes; unclassified (20 sources)FH: Crohn's disease; Translations: [Family history of other diseases of the digestive system]Onset: 45-22-6669KrqowseeScequkrw codes; unclassified (3 sources)Flushing; Translations: [FLUSHING]Onset: 10-15-2021 Resolved: 21-44-3718CkycbiamGyussoby codes; unclassified (1 source)Family history of ischemic heart disease and other diseases of the circulatory system; Translations: [Family history of aortic aneurysm]Onset: 70-48-5120GyxtghrjNvahgkryadf; intervertebral disc disorders; other back problems (20 sources)Chronic low back pain; Translations: [Lumbago with sciatica, left side]Onset: 51-81-6762XbiuuhfiYhzuacmbjuvp (2 sources)Onset: 07-13-2023 Resolved: 488312-59-8664Fufrtgujpbpc (1 source)Supraventricular tachycardia, unspecified (CMS-HCC); Translations: [Supraventricular tachycardia, unspecified (CMS-HCC)]Onset: 45-69-6855Bahbk infection (20 sources)Cytomegaloviral disease, unspecified; 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]Onset: 09-11-2021 Resolved: 75-14-6653Zzxmhlir Results Test NameValueInterpretationReference RangeFacilityCBC W Auto Differential panel (Bld)on 46-99-1468Jlrawivaz (Bld) [#/Vol]0.10 10*3/uLNormal<0.11CSelect [facility] on above:Order Comment: Specimen Type: BLOOD SPECIMENOrdering Facility: [facility] Address:[address] [place], [place] [address]Performed By: #### [id number] ####[facility] [id number] [place], [place] [address]Kblrywsuk/100 WBC (Bld)0.8 % NormalFirelands Regional Medical [facility] on above:Order Comment: Specimen Type: BLOOD SPECIMENOrdering Facility: [facility] Address:[address] [id number] By: #### [id number] ####[facility] [id number] [place] [address] Differential cell count method Nom (Bld)AutoNormalClevelAtrium Health Harrisburg Comment on above:Order Comment: Specimen Type: BLOOD SPECIMENOrdering Facility: [facility] Address:[address] [place] [address] Performed By: #### [id number] ####[facility] [id number] [place], [place] [address]Rkobrerqzvg (Bld) [#/Vol]0.14 10*3/uLNormal<0.46[facility] on above:Order Comment: Specimen Type: BLOOD SPECIMENOrdering Facility: [facility] Address:[address] [place], [place] [address]Performed By: #### [id number] ####[facility] [id number] [place], [place] [address]Vdbfxrregrt/100 WBC (Bld)1.1 %NormalFirelands Regional Medical Center [facility] on above:Order Comment: Specimen Type: BLOOD SPECIMENOrdering Facility: [facility] Address:[address] [place], [place] [address]Performed By: #### [id number] ####[facility] [id number] [place], [place] [address]Zqgfxfjqngf distribution width (RBC) [Ratio]14.1 %Quaoyg86.5-15.0[facility] on above: Order Comment: Specimen Type: BLOOD SPECIMENOrdering Facility: [facility] Address:[address] [place], [place] [address]Performed By: #### [id number]- 8 ####[facility] [id number] [place], [place] [address]Lygpmjbgsz (Bld) [Volume fraction]44.4 %Kaesew75.0-46.0 [facility] on above:Order Comment: Specimen Type: BLOOD SPECIMENOrdering Facility: [facility] Address:[address] [place], [place] [address]Performed By: #### [id number] ####[facility] [id number] [place], [place] [address]Lunxpdylsx (Bld) [Mass/Vol]14.9 g/oQXvyyst65.5-15.5CSelect [facility] on above: Order Comment: Specimen Type: BLOOD SPECIMENOrdering Facility: [facility] Address:[address] [place], [place] [address]Performed By: #### [id number]- 8 ####[facility] [id number] [place], [place] [address]Sjwhsiwm granulocytes (Bld) [#/Vol]0.16 10*3/uLHigh<0.10 [facility] on above:Order Comment: Specimen Type: BLOOD SPECIMENOrdering Facility: [facility] Address:[address] [place], [place] [address]Performed By: #### 31397-2 ####[facility] LABIA [id number] [place], [place] [address]Npvyzshm granulocytes/100 WBC (Bld)1.2 %NormalFirelands Regional Medical Center South Campus on above: Order Comment: Specimen Type: BLOOD SPECIMENOrdering Facility: [facility] Address:[address] [place], [place] [address]Performed By: #### 12926- 8 ####[facility] LABCLIA [id number] [place], [place] [address]Juqegbgbowb (Bld) [#/Vol]1.94 10*3/uLNormal1.00-4.00 [facility] on above:Order Comment: Specimen Type: BLOOD SPECIMENOrdering Facility: [facility] Address:[address] [place], [place] [address]Performed By: #### 97005-9 ####[facility] LABIA [id number] [place], [place] [address]Xquccjfgtlu/100 WBC (Bld)14.9 %NormalFirelands Regional Medical Center South Campus on above:Order Comment: Specimen Type: BLOOD SPECIMENOrdering Facility: [facility] Address:[address] [place], [place] [address]Performed By: #### 21447-2 ####[facility] LABCLIA [id number] [place], [place] [address]DSD (RBC) [Entitic mass]31.8 flOtlmsf65.0-34.0[facility] on above:Order Comment: Specimen Type: BLOOD SPECIMENOrdering Facility: [facility] Address:[address] [place], [place] [address]Performed By: #### 78152-7 ####[facility] LABCLIA [id number] [place], [place] [address]DIXQ (RBC) [Mass/Vol]33.6 g/iFYqmnls39.5-36.0[facility] on above: Order Comment: Specimen Type: BLOOD SPECIMENOrdering Facility: [facility] Address:[address] [place], [place] [address]Performed By: #### 57636- 8 ####[facility] LABCLIA [id number] [place], [place] [address]VAU (RBC) [Entitic vol]94.9 kQRxczzu64.0-100.0[facility] on above:Order Comment: Specimen Type: BLOOD SPECIMENOrdering Facility: [facility] Address:[address] [place], [place] [address]Performed By: #### 31858-1 ####[facility] LABIA [id number] [place], [place] [address]Yaovnovvj (Bld) [#/Vol]0.94 10*3/uLHigh<0.87[facility] on above:Order Comment: Specimen Type: BLOOD SPECIMENOrdering Facility: [facility] Address:[address] [place], [place] [address]Performed By: #### 75861- 8 ####[facility]STDAPHNE [facility] LABCLIA [id number] [place], [place] [address]Gvywnmtse/100 WBC (Bld)7.2 %NormalFirelands Regional Medical Center South Campus on above:Order Comment: Specimen Type: BLOOD SPECIMENOrdering Facility: [facility] Address:[address] [place], [place] [address]Performed By: #### 16022-9 ####[facility] LABCLIA [id number] [place], [place] [address]Nkcgljjipen (Bld) [#/Vol]9.74 10*3/uLHigh1.45-7.50[facility] on above:Order Comment: Specimen Type: BLOOD SPECIMENOrdering Facility: [facility] Address:[address] [place], [place] [address]Performed By: #### 70522-1 ####[facility]STDAPHNE [facility] LABCLIA [id number] [place], [place] [address]Tujudynpbos/100 WBC (Bld)74.8 %NormalFirelands Regional Medical Center South Campus on above:Order Comment: Specimen Type: BLOOD SPECIMENOrdering Facility: [facility] Address:[address] [place], [place] [address]Performed By: #### 24508-6 ####[facility] LABCLIA [id number] [place], [place] [address]Eokmceata RBC (Bld) [#/Vol] 10*3/uLNormal<0.01[facility] on above:Order Comment: Specimen Type: BLOOD SPECIMENOrdering Facility: [facility] Address:[address] [place], [place] [address]Performed By: #### 57558-8 ####[facility] LABCLIA [id number] [place], [place] [address]Edipoboda RBC/100 WBC (Bld) [Ratio]0.0 /100 WBCNormal [facility] on above:Order Comment: Specimen Type: BLOOD SPECIMENOrdering Facility: [facility] Address:[address] [place], [place] [address]Performed By: #### 52380-5 ####[facility] LABCLIA [id number] [place], [place] [address]Ffzljvvl mean volume (Bld) [Entitic vol]10.3 fLNormal9.0-12.7CSelect [facility] on above:Order Comment: Specimen Type: BLOOD SPECIMENOrdering Facility: [facility] Address:[address] [place] [address] Performed By: #### 53463-8 ####[facility] LABCLIA [id number] [place], [place] [address]Bpqjdrzjg (Bld) [#/Vol]319 10*3/yEXbiygw528-137CbljnrhgsFirelands Regional Medical Center South Campus on above:Order Comment: Specimen Type: BLOOD SPECIMENOrdering Facility: [facility] Address:[address] [place], [place] [address]Performed By: #### 41983-3 ####[facility] LABCLIA [id number] [place], [place] [address]CYC (Bld) [#/Vol]4.68 10*6/uLNormal3.90-5.20[facility] on above:Order Comment: Specimen Type: BLOOD SPECIMENOrdering Facility: [facility] Address:[address] [place], [place] [address]Performed By: #### 64476-5 ####[facility] LABCLIA [id number] [place], [place] [address]CAK (Bld) [#/Vol]13.02 10*3/uLHigh3.70-11.00[facility] on above: Order Comment: Specimen Type: BLOOD SPECIMENOrdering Facility: [facility] Address:[address] [place], [place] [address]Performed By: #### 46072- 8 ####[facility] LABCLIA [id number] [facility] [place], [place] [address]Ywfrgzccnslkp metabolic 2000 panelon 10-01-6121Ftwtjau [Mass/Vol]4.3 g/dLNormal3.9-4.9CSelect [facility] on above:Order Comment: Specimen Type: BLOOD SPECIMENOrdering Facility: [facility] Address:[address] [place], [place] [address]Performed By: #### 74101- 8 ####[facility] LABCLIA [id number] [facility] [place], [place] [address]CDD [Catalytic activity/Vol]80 U/HXmlgsf44-001NmgxhnufkFirelands Regional Medical Center South [facility] on above:Order Comment: Specimen Type: BLOOD SPECIMENOrdering Facility: [facility] Address:[address] [place], [place] [address]Performed By: #### 59691-9 ####[facility] LABCLIA [id number] [place], [place] [address]OZG [Catalytic activity/Vol]37 U/LNormal7-38[facility] on above:Order Comment: Specimen Type: BLOOD SPECIMENOrdering Facility: [facility] Address:[address] [place], [place] [address]Performed By: #### 93913- 8 ####[facility] LABCLIA [id number] [facility] [place], [place] [address]Zgyez gap [Moles/Vol]15 mmol/LNormal8-15[facility] on above:Order Comment: Specimen Type: BLOOD SPECIMENOrdering Facility: [facility] Address:[address] [place], [place] [address]Performed By: #### 76262-0 ####[facility] LABCLIA [id number] [place], [place] [address]CNG [Catalytic activity/Vol]18 U/NIzrvsn64-57PjlkzndxiFirelands Regional Medical Center South Campus on above:Order Comment: Specimen Type: BLOOD SPECIMENOrdering Facility: [facility] Address:[address] [place], [place] [address]Performed By: #### 17414-1 ####[facility] LABCLIA [id number] [facility] [place] [place] [address] Bilirubin [Mass/Vol]0.2 mg/dLNormal0.2-1.3CSelect [facility] on above:Order Comment: Specimen Type: BLOOD SPECIMENOrdering Facility: [facility] Address:[address] [place], [place] [address]Performed By: #### 85558-2 ####GIGIMNDAPHNE [facility] LABCLIA [id number] [facility] [place] [address]Wkdgovn [Mass/Vol]10.0 mg/dLNormal8.5-10.2C[facility] on above:Order Comment: Specimen Type: BLOOD SPECIMENOrdering Facility: [facility] Address:[address] [place], [place] [address]Performed By: #### 53428-9 ####[facility] LABCLIA [id number] [facility] [place], [place] [address]Ubwwvzcf [Moles/Vol]104 mmol/QXyoazq14-560GcjnmsutsFirelands Regional Medical Center [facility] on above: Order Comment: Specimen Type: BLOOD SPECIMENOrdering Facility: [facility] Address:[address] [place], [place] [address]Performed By: #### 27633- 8 ####[facility] LABCLIA [id number] [facility] [place], [place] [address]LU4 [Moles/Vol]22 mmol/IFfkxkl29-16BdtgskhncFirelands Regional Medical Center [facility] on above:Order Comment: Specimen Type: BLOOD SPECIMENOrdering Facility: [facility] Address:[address] [place], [place] [address]Performed By: #### 67930-7 ####[facility] LABCLIA [id number] [place], [place] [address]Mbtxzmxvzx [Mass/Vol]0.51 mg/dL Low0.58-0.96[facility] on above:Order Comment: Specimen Type: BLOOD SPECIMENOrdering Facility: [facility] Address:[address] [place], [place] [address]Performed By: #### 25780-9 ####[facility] LABCLIA [id number] [place] [address] eGFRcr SerPlBld CKD-EPI 5765070 mL/min/1.73m???Normal>=60[facility] on above:Order Comment: Specimen Type: BLOOD SPECIMENOrdering Facility: [facility] Address:[address] [place], [place] [address]Result Comment: Estimated Glomerular Filtration Rate (eGFR) is [...] accurately reflect actual GFR. Performed By: #### 00167-4 ####[facility] LABCLIA [id number] [place], [place] [address]Jlkccbe [Mass/Vol]193 mg/dLHigh 74-99[facility] on above:Order Comment: Specimen Type: BLOOD SPECIMENOrdering Facility: [facility] Address:[address] [place], [place] [address]Result Comment: The [place] Diabetes Association (ADA) provides guidance for cutoff [...] Standards of Medical Care in Diabetes 2016, [place] [employer]. Diabetes Care. 2016.39(Suppl 1).Performed By: #### 31957-3 ####[facility] LABCLIA [id number] [place], [place] [address]Majbyfrag [Moles/Vol]4.0 mmol/LNormal3.7-5.1CSelect [facility] on above:Order Comment: Specimen Type: BLOOD SPECIMENOrdering Facility: [facility] Address:[address] [place], [place] [address]Performed By: #### 27424-7 ####[facility] LABCLIA [id number] [place], [place] [address] [Mass/Vol]7.4 g/dLNormal6.3-8.0[facility] on above:Order Comment: Specimen Type: BLOOD SPECIMENOrdering Facility: [facility] Address:[address] [place], [place] [address]Performed By: #### 33570- 8 ####[facility] LABCLIA [id number] [place], [place] [address]Armogf [Moles/Vol]141 mmol/VIcxnfw005-017EqmqxqwpqFirelands Regional [facility] on above:Order Comment: Specimen Type: BLOOD SPECIMENOrdering Facility: [facility] Address:[address] [place], [place] [address]Performed By: #### 74359-5 ####[facility] LABCLIA [id number] [place], [place] [address]Kdtk nitrogen [Mass/Vol]16 mg/dLNormal7-21[facility] on above:Order Comment: Specimen Type: BLOOD SPECIMENOrdering Facility: [facility] Address:[address] [place], [place] [address]Performed By: #### 27056-3 ####[facility] LABCLIA [id number] [place], [place] [address]JWCBQAKIFOGZEQX,IGG,IGA,IGMon 86-44-3823TsV [Mass/Vol]167 mg/wBBrrzcp37-173ZdhbudxdhFirelands Regional Medical Center [facility] on above:Order Comment: Specimen Type: BLOOD SPECIMENOrdering Facility: [facility] Address:[address] [place], [place] [address]Performed By: #### SERIMM ####[facility] LABCLIA [id number] [place] [id number] [place] AMERICAIgG [Mass/Vol]579 mg/qDHaw993-0154GkvdguoxqFirelands Regional [facility] on above:Order Comment: Specimen Type: BLOOD SPECIMENOrdering Facility: [facility] Address:[address] [place], [place] [address]Performed By: #### SERIMM ####[facility] LABCLIA [id number] [place] [address] [place] AMERICAIgM [Mass/Vol]391 mg/dL Rofj77-816KfsfeuoumFirelands Regional [facility] on above:Order Comment: Specimen Type: BLOOD SPECIMENOrdering Facility: [facility] Address:[address] [place], [place] [address]Performed By: #### SERIMM ####[facility] LABCLIA [id number] [place] [id number] [place] AMERICACNPNon 31-98-4936PWKYTpkmmvCvsztrhun Clinic ClevelandWOUND CULTUREon 75-58-7081KPUOS CULTURESPECIMEN DESCRIPTION WOUND SPECIAL REQUESTS RIGHT NIPPLE DISCHARGE GRAM SMEAR NO * Result Note: WBC'S SEEN * * Result Note: NO ORGANISMS SEEN * COLONY COUNT LIGHT GROWTH CULTURE STAPHYLOCOCCUS EPIDERMIDIS * Result Note: Testing performed at [place], [place] [address] * REPORT STATUS 03/18/2025 * Result Note: FINAL * ORGANISM STAPHYLOCOCCUS EPIDERMIDIS * Result Note: STAPHYLOCOCCUS EPIDERMIDIS * METHOD ELPIDIO CLINDAMYCIN >=8 RESISTANT ERYTHROMYCIN >=8 RESISTANT GENTAMICIN <=0.5 SUSCEPTIBLE PENICILLIN G >=0.5 RESISTANT RIFAMPIN <=0.5 SUSCEPTIBLE TETRACYCLINE 2 SUSCEPTIBLE TRIMETH-SULFA 80 RESISTANT VANCOMYCIN 1 SUSCEPTIBLE LEVOFLOXACIN >=8 RESISTANT OXACILLIN >=4 RESISTANT LINEZOLID 2 SUSCEPTIBLE INDUCIBLE CLINDAMYCIN RESISTANCE NEGATIVENoSelect Medical Specialty Hospital - YoungstownComment on above:Performed By: #### WDC #### [place] [address] Testing performed at [place] [address]WOUND CULTUREon 08-32-1555NGLXG CULTURESPECIMEN DESCRIPTION WOUND SPECIAL REQUESTS LEFT NIPPLE DISCHARGE GRAM SMEAR NO * Result Note: WBC'S SEEN * * Result Note: NO ORGANISMS SEEN * CULTURE NO GROWTH 2 DAYS * Result Note: Testing performed at [place] [address] * REPORT STATUS 03/16/2025 * Result Note: FINAL *[facility] TrumbullComment on above:Performed By: #### WDC #### [place] [address] Testing performed at [place] [id number] Cultureon 14-73-3156Hgdbqvov identified Cx Nom (U)<9,000 colonies/ml mixed bacterial skin contaminants 2 Days PERFORMED BY: [place] [address] PATHOLOGIST RETIREMENT PLAN SPECIALIST TIM FOOTE M.D.[facility] Physician GroupComment on above: Performed By: #### CUU #### [place] [address] USAUrine cultureOrdered By: Gay De La Torre on 03-09-2025 Bacteria identified Cx Nom (U)2 DaysMarion Hospital Cultureon 59-19-7524Auicopgc identified Cx Nom (U)ORGANISM: Christine albicans (O:CANALB) Homer Count >100,000 PERFORMED BY: [facility] [address] [place] [address] PATHOLOGIST RETIREMENT PLAN SPECIALIST TIM FOOTE M.D.[facility] Physician GroupComment on above: Performed By: #### CUU #### [facility] [address] [place] [address] USAUrine cultureOrdered By: Jose Perez on 03-03-2025 Bacteria identified Cx Nom (U)Christine albicansAbnoThe Surgical Hospital at SouthwoodsAerobic Cultureon 01-24-6168Llgpaoq CultureComment pilonidal abscess culture ORGANISM: Serratia marcescens (O:SERMAR) Quantity of Growth Light Growth Comment pilonidal abscess culture ORGANISM: Prevotella species (O:PRESP) Comments . Quantity of Growth Light Growth Send Test to Ref. Lab Sent to [facility] for CHRISTIAN ID Identification performed at: [id number] [id number] Area Relief Pilot: Doyle Mendenhall PhD, Phone: [phone] Please contact Microbiology within 7 days if [...] RESISTANT TO ALL B-LACTAM DRUGS. PERFORMED BY: [facility] [address] [place] [id number] PATHOLOGIST RETIREMENT PLAN SPECIALIST TIM FOOTE M.D.NormalHca [facility] Hospital Physician GroupComment on above: Performed By: #### AERC #### [facility] [address] [place] [id number] USAAerobic cultureOrdered By: Terence Blum on 03-02-2025 Bacteria identified Aer cx Nom (Unsp spec)Serratia marcescensAbnoThe Surgical Hospital at SouthwoodsGram stain microscopyOrdered By: Terence Blum on 88-64-8134Mrrxkbnxtcg observation Gram stain Nom (Unsp spec)[facility] Medical CenterLon 03-02-2025L Specimen: [id number] Received: 03/05/25 Status: BAIRON Garcia Num: [id number] Spec Type: Surgical Subm Dr: Terence Blum MD Tissues: A Pilonidal Cyst (PRODUCT OF DEBRIDEMENT) Procedures: HE/2, Gross/Micro L3 Age/ Patient Sex Location Account Attending Physician Ariadna Haley 44/F [place] [id number] Terence Blum MD SPEC NUM: [id number] RECD: 03/05/25 STATUS: BAIRON COLEGonzalez NUM: [id number] EDITA: 03/02/[address]: Terence Blum MD ENTERED: 03/05/[address] [facility] [address]: DANIELLA TYPE: Surgical DEPT: S ENTERED BY: [id number] RECV BY: [id number] ORDERED: HE/2, Gross/Micro L3 ORDERED: HE/2, Gross/Micro [...] each specimen submitted in A2. (2, ns, [id number]) CPT Codes 04916 Specimen: [id number] Received: 03/05/25 Status: BAIRON Colegonzalez Num: [id number] Spec Type: Surgical Subm Dr: Terence Blum MD Tissues: A Pilonidal Cyst (PRODUCT OF DEBRIDEMENT) Procedures: HE/2, Gross/Micro L3 Patient: Ariadna Haley [id number] (Continued) Signed (signature on file) Merry Grajeda MD 03/06/25 [address] [facility] GroupEssex Hospital 91-89-7482Rdaanvoc identified Cx Nom (U)20,000 colonies/ml mixed bacterial skin contaminants including mixed gram negative bacilli - 2 Days PERFORMED BY: [facility] [address] [place] [id number] PATHOLOGIST RETIREMENT PLAN SPECIALIST TIM FOOTE M.D.NormalHca [facility] Hospital Physician GroupComment on above: Performed By: #### CUU #### [facility] [address] [place] [address] USAUrine cultureOrdered By: Mathew Ji on 02-26-2025 Bacteria identified Cx Nom (U)bacilli - 2 DaysMetrohealth Parma [facility] Center CBC W Auto Differential panel (Bld)on 11-59-5016Dwdrulbgk (Bld) [#/Vol]0.09 10*3/uLNormal<0.11CSelect [facility] on above:Order Comment: Specimen Type: BLOOD SPECIMENOrdering Facility: [facility] Address:[address] [place], [place] [address]Performed By: #### 40516-4 ####[facility] LABCLIA [id number] [place], [place] [address]Omzyzwkqw/100 WBC (Bld)0.7 %NormalFayette County Memorial HospitalCommclaren northern mich[place] on above:Order Comment: Specimen Type: BLOOD SPECIMENOrdering Facility: [facility] Address:[address] [place], [place] [address]Performed By: #### 41580-7 ####[facility] LABCLIA [id number] [place], [place] [address]Calzpypnbtng cell count method Nom (Bld)AutoNormalCSelect Medical Specialty [facility] on above:Order Comment: Specimen Type: BLOOD SPECIMENOrdering Facility: [facility] Address:[address] [place], [place] [address]Performed By: #### 47523-7 ####[facility] LABCLIA [id number] [place], [place] [address]Kswpynxwnmi (Bld) [#/Vol]0.11 10*3/uLNormal<0.46[facility] on above:Order Comment: Specimen Type: BLOOD SPECIMENOrdering Facility: [facility] Address:[address] [place], [place] [address]Performed By: #### 41995-4 ####[facility] LABIA [id number] [place], [place] [address]Vizhvvwhxde/100 WBC (Bld)0.8 %NormalFirelands Regional Medical Center [facility] Campus on above:Order Comment: Specimen Type: BLOOD SPECIMENOrdering Facility: [facility] Address:[address] [place], [place] [address]Performed By: #### 83783-3 ####[facility] LABIA [id number] [place], [place] [address]Yjbdrritpwh distribution width (RBC) [Ratio]14.3 %Normal 11.5-15.0[facility] on above:Order Comment: Specimen Type: BLOOD SPECIMENOrdering Facility: [facility] Address:[address] [place], [place] [address]Performed By: #### 88063-7 ####[facility] LABIA [id number] [place] [address] Hematocrit (Bld) [Volume fraction]46.0 %Tmohjk86.0-46.0[facility] on above:Order Comment: Specimen Type: BLOOD SPECIMENOrdering Facility: [facility] Address:[address] [place], [place] [address]Performed By: #### 68121-7 ####[facility] LABIA [id number] [place], [place] [address]Jmlusvcxck (Bld) [Mass/Vol]15.1 g/tJPlvgwk46.5-15.5CSelect [facility] on above:Order Comment: Specimen Type: BLOOD SPECIMENOrdering Facility: [facility] Address:[address] [place], [place] [address]Performed By: #### 82463-6 ####[facility] LABIA [id number] [place], [place] [address]Irdposgl granulocytes (Bld) [#/Vol]0.21 10*3/uLHigh<0.10 [facility] on above:Order Comment: Specimen Type: BLOOD SPECIMENOrdering Facility: [facility] Address:[address] [place], [place] [address]Performed By: #### 94141-0 ####[facility] LABCLIA [id number] [place], [place] [address]Nqrdhhps granulocytes/100 WBC (Bld)1.6 %NormalFirelands Regional Medical [facility] on above: Order Comment: Specimen Type: BLOOD SPECIMENOrdering Facility: [facility] Address:[address] [place], [place] [address]Performed By: #### 58868- 8 ####[facility] LABIA [id number] [place], [place] [address]Uwouxfbncml (Bld) [#/Vol]1.89 10*3/uLNormal1.00-4.00 [facility] on above:Order Comment: Specimen Type: BLOOD SPECIMENOrdering Facility: [facility] Address:[address] [place], [place] [address]Performed By: #### 67669-1 ####[facility] LABIA [id number] [place], [place] [address]Vskkqgqbyek/100 WBC (Bld)14.4 %NormalFirelands Regional Medical Center [facility] on above:Order Comment: Specimen Type: BLOOD SPECIMENOrdering Facility: [facility] Address:[address] [place], [place] [address]Performed By: #### 90428-7 ####[facility] LABIA [id number] [place], [place] [address]DPM (RBC) [Entitic mass]31.7 bvLfubnk66.0-34.0[facility] on above:Order Comment: Specimen Type: BLOOD SPECIMENOrdering Facility: [facility] Address:[address] [place], [place] [address]Performed By: #### 06923-0 ####[facility] LABCLIA [id number] [place], [place] [address]WSAU (RBC) [Mass/Vol]32.8 g/xMNpbuft23.5-36.0[facility] on above: Order Comment: Specimen Type: BLOOD SPECIMENOrdering Facility: [facility] Address:[address] [place], [place] [address]Performed By: #### [id number]- 8 ####[facility] LABCLIA [id number] [place], [place] [address]OOS (RBC) [Entitic vol]96.4 nMUoulqo91.0-100.0[facility] on above:Order Comment: Specimen Type: BLOOD SPECIMENOrdering Facility: [facility] Address:[address] [place], [place] [address]Performed By: #### [id number] ####[facility] LABIA [id number] [place], [place] [address]Iuncanfst (Bld) [#/Vol]0.92 10*3/uLHigh<0.87[facility] on above:Order Comment: Specimen Type: BLOOD SPECIMENOrdering Facility: [facility] Address:[address] [place], [place] [address]Performed By: #### [id number]- 8 ####[facility]CLIA [id number] [place], [place] [address]Oiiygjyay/100 WBC (Bld)7.0 %NormalFirelands [facility] on above:Order Comment: Specimen Type: BLOOD SPECIMENOrdering Facility: [facility] Address:[address] [place], [place] [address]Performed By: #### [id number] ####[facility]CLIA [id number] [place], [place] [address]Doftzkxnmgn (Bld) [#/Vol]9.94 10*3/uLHigh1.45-7.50[facility] on above:Order Comment: Specimen Type: BLOOD SPECIMENOrdering Facility: [facility] Address:[address] [place], [place] [address]Performed By: #### 64626-8 ####[facility] LABCLIA [id number] [place], [place] [address]Nihfuknlnpb/100 WBC (Bld)75.5 %NormalFirelands Regional Medical Center South Campus on above:Order Comment: Specimen Type: BLOOD SPECIMENOrdering Facility: [facility] Address:[address] [place], [place] [address]Performed By: #### 03996-8 ####[facility] LABCLIA [id number] [place], [place] [address]Ducynrakv RBC (Bld) [#/Vol] 10*3/uLNormal<0.01[facility] on above:Order Comment: Specimen Type: BLOOD SPECIMENOrdering Facility: [facility] Address:[address] [place], [place] [address]Performed By: #### 44932-8 ####[facility] LABCLIA [id number] [place], [place] [address]Ldmfqlzgn RBC/100 WBC (Bld) [Ratio]0.0 /100 WBCNormal [facility] on above:Order Comment: Specimen Type: BLOOD SPECIMENOrdering Facility: [facility] Address:[address] [place], [place] [address]Performed By: #### 37499-2 ####[facility] LABIA [id number] [place], [place] [address]Oxguohjs mean volume (Bld) [Entitic vol]9.9 fLNormal9.0-12.7CSelect [facility] on above:Order Comment: Specimen Type: BLOOD SPECIMENOrdering Facility: [facility] Address:[address] [place] [address] Performed By: #### 53492-2 ####[facility] LABCLIA [id number] [place], [place] [address]Uiarqpfjq (Bld) [#/Vol]305 10*3/wDLlmrfx312-399GsidsdmjgFirelands Regional Medical Center South Campus on above:Order Comment: Specimen Type: BLOOD SPECIMENOrdering Facility: [facility] Address:[address] [place], [place] [address]Performed By: #### 19079-1 ####[facility] LABCLIA [id number] [place], [place] [address]LAZ (Bld) [#/Vol]4.77 10*6/uLNormal3.90-5.20[facility] on above:Order Comment: Specimen Type: BLOOD SPECIMENOrdering Facility: [facility] Address:[address] [place], [place] [address]Performed By: #### 75462-3 ####[facility] LABCLIA [id number] [place], [place] [address]KNB (Bld) [#/Vol]13.16 10*3/uLHigh3.70-11.00[facility] on above: Order Comment: Specimen Type: BLOOD SPECIMENOrdering Facility: [facility] Address:[address] [place], [place] [address]Performed By: #### 55055- 8 ####[facility] LABIA [id number] [place], [place] [address]SSVRRIxf 52-07-3286ETFBSXTgqknvSpeisgbfg Clinic [facility] CNPNon 18-16-6812HRRUPrgtldPikhvaqwp Clinic ClevelandComprehensive metabolic 2000 panelon 14-42-8848Ejymbbf [Mass/Vol]4.3 g/dLNormal3.9-4.9CSelect [facility] on above:Order Comment: Specimen Type: BLOOD SPECIMENOrdering Facility: [facility] Address:[address] [place], [place] [address]Performed By: #### 75435-3 ####[facility]NDAPHNE [facility] LABCLIA [id number] OSORIO BARNESDIGNITY [facility]TY HOSPITALAMAYACOUNTYLINE, [place] [address]IVP [Catalytic activity/Vol]83 U/PMepmik35-067ZvzuleofqFirelands Regional Medical Center South Campus on above:Order Comment: Specimen Type: BLOOD SPECIMENOrdering Facility: [facility] Address:[address] [place], [place] [address]Performed By: #### 31653-8 ####[facility] WESTDPAHNE [facility] LABCLIA [id number] OSORIO DRIVERDIGNITY HEALTH ARIZONA SPECIALTY HOSPITALAMAYACOUNTYLINE, [place] [address]MZT [Catalytic activity/Vol]49 U/LHigh7-38[facility] on above:Order Comment: Specimen Type: BLOOD SPECIMENOrdering Facility: [facility] Address:[address] [place], [place] [address]Performed By: #### 25778-2 ####[facility] LABCLIA [id number] [facility] [place], [place] [address]Omqgn gap [Moles/Vol]17 mmol/LHigh8-15[facility] on above:Order Comment: Specimen Type: BLOOD SPECIMENOrdering Facility: [facility] Address:[address] [place], [place] [address]Performed By: #### 31709- 8 ####[facility] WESTDAPHNE [facility] LABCLIA [id number] OSORIO DRIVERDIGNITY HEALTH ARI[facility]ONA SPECIALTY HOSPITALCAYDENSALINA, [place] [address]VHS [Catalytic activity/Vol]20 U/LLcjanq11-99QxhtryiqoFirelands Regional Medical Center [facility] on above:Order Comment: Specimen Type: BLOOD SPECIMENOrdering Facility: [facility] Address:[address] [place], [place] [address]Performed By: #### 98373-8 ####[facility] LABCLIA [id number] KERRI JAMAGGYDIGNITY HEALTH ARIZONA SPECIALTY HOSPITALCAYDENSALINA, [place] [address]Eiezsaboo [Mass/Vol]0.3 mg/dLNormal0.2-1.3CSelect [facility] on above:Order Comment: Specimen Type: BLOOD SPECIMENOrdering Facility: [facility] Address:[address] [place], [place] [address]Performed By: #### 30333- 8 ####[facility] LABCLIA [id number] [place], [place] [address]Igrtmxq [Mass/Vol]10.2 mg/dLNormal8.5-10.2CSelect [facility] on above:Order Comment: Specimen Type: BLOOD SPECIMENOrdering Facility: [facility] Address:[address] [place], [place] [address]Performed By: #### 26325-2 ####[facility] LABCLIA [id number] [place], [place] [address]Qluirxzh [Moles/Vol]101 mmol/BQrkesw06-685KwdakfalwFirelands Regional Medical Center South Campus on above: Order Comment: Specimen Type: BLOOD SPECIMENOrdering Facility: [facility] Address:[address] [place], [place] [address]Performed By: #### 45096- 8 ####[facility] LABCLIA [id number] [place], [place] [address]CZ4 [Moles/Vol]20 mmol/TRyv22-55JpojkcfiuFirelands Regional Medical Center South Campus on above:Order Comment: Specimen Type: BLOOD SPECIMENOrdering Facility: [facility] Address:[address] [place], [place] [address]Performed By: #### 71196-7 ####[facility] LABCLIA [id number] [place], [place] [address]Xozlazafsr [Mass/Vol]0.49 mg/dL Low0.58-0.96[facility] on above:Order Comment: Specimen Type: BLOOD SPECIMENOrdering Facility: [facility] Address:[address] [place], [place] [address]Performed By: #### 41531-9 ####[facility] LABIA [id number] [place] [address] eGFRcr SerPlBld CKD-EPI 7326416 mL/min/1.73m???Normal>=60[facility] on above:Order Comment: Specimen Type: BLOOD SPECIMENOrdering Facility: [facility] Address:[address] [place], [place] [address]Opvjry Comment: Estimated Glomerular Filtration Rate (eGFR) is [...] accurately reflect actual GFR. Performed By: #### 24090-9 ####[facility] LABCLIA [id number] [place], [place] [address]Xjuaryg [Mass/Vol]248 mg/dLHigh 74-99[facility] on above:Order Comment: Specimen Type: BLOOD SPECIMENOrdering Facility: [facility] Address:[address] [place], [place] [address]Syelno Comment: The [place] Diabetes Association (ADA) provides guidance for cutoff [...] Standards of Medical Care in Diabetes 2016, [place] Diabetes Association. Diabetes Care. 2016.39(Suppl 1).Performed By: #### 20994-4 ####[facility] LABCLIA [id number] [place], [place] [address]Sjdjjrhls [Moles/Vol]4.1 mmol/LNormal3.7-5.1CSelect [facility] on above:Order Comment: Specimen Type: BLOOD SPECIMENOrdering Facility: [facility] Address:[address] [place], [place] [address]Performed By: #### 42772-7 ####[facility] LABCLIA [id number] [place], [place] [address]Qnqkssu [Mass/Vol]7.6 g/dLNormal6.3-8.0[facility] on above:Order Comment: Specimen Type: BLOOD SPECIMENOrdering Facility: [facility] Address:[address] [place], [place] [address]Performed By: #### 26450- 8 ####[facility] LABCLIA [id number] [place], [place] [address]Sigito [Moles/Vol]138 mmol/SVpjtch294-030HhmariiixFirelands Regional Medical Center [facility] on above:Order Comment: Specimen Type: BLOOD SPECIMENOrdering Facility: [facility] Address:[address] [place], [place] [address]Performed By: #### 62016-0 ####[facility] LABCLIA [id number] [place], [place] [address]Udml nitrogen [Mass/Vol]16 mg/dLNormal7-21[facility] on above:Order Comment: Specimen Type: BLOOD SPECIMENOrdering Facility: [facility] Address:[address] [place], [place] [address]Performed By: #### 70657-9 ####[facility] LABCLIA [id number] [place], [place] [address]Edbyjcth SerPl-mCncon 41-96-4087Prerpqqv [Mass/Vol]83.6 ng/mLIgzhxh67.7-205.1CSelect [facility] on above:Order Comment: Specimen Type: BLOOD SPECIMENOrdering Facility: [facility] Address:[address] [place], [place] [address]Performed By: #### 2132-9, 2284-8, 2276-4, 25108-4 ####[facility] LABCLIA [id number] [place] [address] [place] AMERICAFolate SerPl-mCncon 66-81-5170Nvpahk [Mass/Vol]ng/mLNormal>4.7CSelect [facility] on above:Order Comment: Specimen Type: BLOOD SPECIMENOrdering Facility: [facility] Address:[address] [place], [place] [address]Result Comment: A result of > 20 ng/mL is not necessarily indicative of a pathologic or treatable condition: it reflects a limitation of the test methodology.Assay reference range: 4.8 to 24.2 ng/mL. Suitable for detection of folate deficiency.Reference:Folate III (Folate III) [package insert V 1.0 Burmese]. [employer], [place], [place]: March 2015.Performed By: #### 2132-9, 2284-8, 2276-4, 93665-1 ####[facility] LABCLIA [id number] [place] [address] [place] IMMUNOGLOBULINS,IGG,IGA,IGMon 35-03-4862FxC [Mass/Vol]184 mg/hKXuvbtf11-204 [facility] on above:Order Comment: Specimen Type: BLOOD SPECIMENOrdering Facility: [facility] Address:[address] [place], [place] [address]Performed By: #### SERIMM ####[facility] LABCLIA [id number] [place] [address] [place] AMERICAIgG [Mass/Vol]610 mg/dCNoj038-5174HrslafrskFirelands Regional Medical Center South Campus on above:Order Comment: Specimen Type: BLOOD SPECIMENOrdering Facility: [facility] Address:[address] [place], [place] [address]Performed By: #### SERIMM ####[facility] LABCLIA [id number] [place] [address] [place] AMERICAIgM [Mass/Vol]454 mg/dL Splf64-845VjqmcgjgtFirelands Regional Medical Center South Campus on above:Order Comment: Specimen Type: BLOOD SPECIMENOrdering Facility: [facility] Address:[address] [place], [place] [address]Performed By: #### SERIMM ####[facility] LABIA [id number] [place] [id number] [place] AMERICAIron and Iron binding capacity panelon 57-78-7352Grpp [Mass/Vol]156 ug/rIAsbeyr90-430YqkwenxpuFirelands Regional Medical Center [facility] on above:Order Comment: Specimen Type: BLOOD SPECIMENOrdering Facility: [facility] Address:[address] [place], [place] [address]Performed By: #### 2132- 9, 2284-8, 2276-4, 62510-0 ####[facility] LABIA [id number] [place] [address] [place] AMERICAIron binding capacity [Mass/Vol]443 ug/zYSbyw884-116RhdiuglbpFirelands Regional Medical Center [facility] on above:Order Comment: Specimen Type: BLOOD SPECIMENOrdering Facility: [facility] Address:[address] [place] [address] Performed By: #### 2132-9, 2284-8, 2276-4, 30806-5 ####[facility] LABIA [id number] [place] [address] [place] AMERICAIron/TIBC [Molar ratio]35.2 %Bhpsbu87.0-57.0[facility] on above:Order Comment: Specimen Type: BLOOD SPECIMENOrdering Facility: [facility] Address:[address] [place], [place] [address]Performed By: #### 2132-9, 2284-8, 2276-4, 87990-3 ####[facility] LABIA [id number] [place] [address] [place] AMERICAVit B12 SerPl-Excela Frick Hospitalon 67-80-7163Wbqyqniew (Vitamin B12) [Mass/Vol]694 pg/kFTvfshf897-5731GpjyprbweSelect Medical Specialty Hospital [facility] on above: Order Comment: Specimen Type: BLOOD SPECIMENOrdering Facility: [facility] Address:[address] [place], [place] [address]Shawyxpiz By: #### 2132- 9, 2284-8, 2276-4, 50838-1 ####[facility] LABCLIA [id number] [facility] CLINICNichole [address] [address] [place] AMERICACNPNon 87-18-9177VSIJEbnfupDxueknbkq Clinic ClevelandHCG ( test) [place].rapid Ql (U)Ordered By: Adolfo Kang on 04-48-5720NHO ( test) Ql (U)Negative [facility] Medical CenterHCG,Urineon 15-52-3127Nvfm HCG ( test) Ql (U)NegativeNoPerson Memorial Hospital Physician GroupComment on above:Result Comment: PERFORMED BY: [facility] [address] [facility] [facility] [place] [id number] PATHOLOGIST RETIREMENT PLAN SPECIALIST TIM FOOTE M.D.Performed By: #### UHCG #### [facility] [address] [place] [address] USABI US BREAST LIMITED LEFTon 80-57-6045HN US BREAST LIMITED LEFTThis is a summary [...] SIGNED BY: Yassine Owens M.D.NormalNot AvailableCNPNon 01-18-2025 CNPNNormalFayette [facility] Hospital25([place])D3 SerPl-mCncon 32-43-576232- hydroxyvitamin D3 [Mass/Vol]32.2 ng/uJEtxzax72.0-80.0[facility] Comment on above:Order Comment: Specimen Type: BLOOD SPECIMENOrdering Facility: [facility] Address:[address] [place] [address] Performed By: #### 1989-3 ####[facility] LABIA [id number] [place] [address] [place] [facility] BLOOD TB SCREENon 01-11-2025M. tuberculosis tuberculin stim IFN-g Ql (Bld) NegativeNormalCDayton Children's HospitalComment on above:Order Comment: Specimen Type: BLOOD SPECIMENOrdering Facility: [facility] Address:[address] [place], [place] [address]Performed By: #### INFTBP ####[facility] LABIA [id number] [place] [address] [place] AMERICAMITOGEN MINUS NIL>9.97Normal>=0.50[facility] on above:Order Comment: Specimen Type: BLOOD SPECIMENOrdering Facility: [facility] Address:[address] [place], [place] [address]Performed By: #### INFTBP ####[facility] LABIA [id number] [place] [address] [place] TB GAMMA INTERPRETATIONNormalCSelect Medical [facility] on above:Order Comment: Specimen Type: BLOOD SPECIMENOrdering Facility: [facility] Address:[address] [place], [place] [address]Performed By: #### INFTBP ####[facility] LABIA [id number] [address]ETTB NIL0.03 IU/mLNormal<=8.00 [facility] on above:Order Comment: Specimen Type: BLOOD SPECIMENOrdering Facility: [facility] Address:[address] [place], [place] [address]Performed By: #### INFTBP ####[facility] LABIA [id number] [address]TB1 AG MINUS NIL0.01 IU/mLNormal<0.35[facility] on above:Order Comment: Specimen Type: BLOOD SPECIMENOrdering Facility: [facility] Address:[address] [place], [place] [address]Performed By: #### INFTBP ####[facility] LABIA [id number] [address]TB2 AG MINUS NIL0.01 IU/mLNormal<0.35[facility] on above:Order Comment: Specimen Type: BLOOD SPECIMENOrdering Facility: [facility] Address:[address] [place], [place] [address]Performed By: #### INFTBP ####[facility]ENTERIA [id number] [address] panel Auto (Bld)on 01-11-2025 Erythrocyte distribution width (RBC) [Ratio]14.5 %11.5 - 15.0 %[facility] Hematocrit (Bld) [Volume fraction]41.5 %36.0 - 46.0 %[facility] Medical CenterHemoglobin (Bld) [Mass/Vol]13.8 g/dL11.5 - 15.5 g/dLChillicothe Va Medical CenterInterpretation and review of laboratory resultsAbnormalCRegency Hospital Cleveland West (RBC) [Entitic mass]32.2 pg26.0 - 34.0 pgCSumma Health Akron CampusHC (RBC) [Mass/Vol]33.3 g/dL30.5 - 36.0 g/dL [facility] HealthV (RBC) [Entitic vol]96.7 fL80.0 - 100.0 [facility] Nucleated RBC (Bld) [#/Vol]NINFCSt. Mary's Medical CenterPlatelet mean volume (Bld) [Entitic vol]10.6 fL9.0 - 12.7 fLCSt. Mary's Medical CenterPlatelets (Bld) [#/Vol]265 10*3/[facility] EastRBC (Bld) [#/Vol]4.29 10*6/uL3.90 - 5.20 m/[facility] EastWBC (Bld) [#/Vol]12.61 10*3/uLSouthern [facility] Medical Center Erythrocyte distribution width (RBC) [Ratio]14.5 %Yjtvfk77.5-15.0[facility] on above:Order Comment: Specimen Type: BLOOD SPECIMENOrdering Facility: [facility] Address:[address] [place], [place] [address]Performed By: #### 62840-0 ####[facility] LABIA [id number] [place], [place] [address]Ribyobloxh (Bld) [Volume fraction]41.5 %Nrbvcy72.0-46.0[facility] on above:Order Comment: Specimen Type: BLOOD SPECIMENOrdering Facility: [facility] Address:[address] [place], [place] [address]Performed By: #### 78698-2 ####[facility] LABCLIA [id number] [place], [place] [address]Dbgqdlhzhy (Bld) [Mass/Vol]13.8 g/zPOqxalc53.5-15.5 [facility] on above:Order Comment: Specimen Type: BLOOD SPECIMENOrdering Facility: [facility] Address:[address] [place], [place] [address]Performed By: #### 07060-0 ####[facility] LABCLIA [id number] [place], [place] [address]KVP (RBC) [Entitic mass]32.2 hnWoemno16.0-34.0[facility] on above: Order Comment: Specimen Type: BLOOD SPECIMENOrdering Facility: [facility] Address:[address] [place], [place] [address]Performed By: #### 20516- 2 ####[facility] LABIA [id number] [place], [place] [address]UOSU (RBC) [Mass/Vol]33.3 g/fFLgzppr64.5-36.0[facility] on above:Order Comment: Specimen Type: BLOOD SPECIMENOrdering Facility: [facility] Address:[address] [place], [place] [address]Performed By: #### 62696-7 ####[facility] LABSPRINGFIELD [facility] [id number] [place], [place] [address]TGT (RBC) [Entitic vol]96.7 zZKgmgwm68.0-100.0[facility] on above: Order Comment: Specimen Type: BLOOD SPECIMENOrdering Facility: [facility] Address:[address] [place], [place] [address]Performed By: #### 29481- 2 ####[facility] LABIA [id number] [place], [place] [address]Sgrgxttxq RBC (Bld) [#/Vol]10*3/uLNormal<0.01[facility] on above:Order Comment: Specimen Type: BLOOD SPECIMENOrdering Facility: [facility] Address:[address] [place], [place] [address]Performed By: #### 55347-1 ####[facility] LABIA [id number] [place], [place] [address]Fgulgsuv mean volume (Bld) [Entitic vol]10.6 fLNormal9.0-12.7CSelect [facility] Specialty [facility] on above:Order Comment: Specimen Type: BLOOD SPECIMENOrdering Facility: [facility] Address:[address] [place] [address] Performed By: #### 75534-8 ####[facility] LABCLIA [id number] [place], [place] [address]Aahuckkez (Bld) [#/Vol]265 10*3/sGJuprip775-836FsmwcndukFirelands [facility] on above:Order Comment: Specimen Type: BLOOD SPECIMENOrdering Facility: [facility] Address:[address] [place], [place] [address]Performed By: #### 22686-3 ####[facility] LABCLIA [id number] [place], [place] [address]BZD (Bld) [#/Vol]4.29 10*6/uLNormal3.90-5.20[facility] on above:Order Comment: Specimen Type: BLOOD SPECIMENOrdering Facility: [facility] Address:[address] [place], [place] [address]Performed By: #### 97377-2 ####[facility] LABIA [id number] [place], [place] [address]TCW (Bld) [#/Vol]12.61 10*3/uLHigh3.70-11.00[facility] on above: Order Comment: Specimen Type: BLOOD SPECIMENOrdering Facility: [facility] Address:[address] [place], [place] [address]Performed By: #### 15526- 2 ####[facility] LABIA [id number] [place], [place] [address]FWO SerPl-mCncon 44-07-4645OOI [Mass/Vol]mg/LNormal<0.9 [facility] on above:Order Comment: Specimen Type: BLOOD SPECIMENOrdering Facility: [facility] Address:[address] [place], [place] [address]Performed By: #### 1987-5, 2131-9 ####[facility] LABCLIA [id number] [place] [id number] [place] AMERICAComprehensive metabolic 2000 panelOrdered By: Jossejarocho Merlos on 52-64-7147Wdgtxhc [Mass/Vol]3.9 g/dL3.9 - 4.9 g/dLChicago ClinicALP [Catalytic activity/Vol]83 U/L34 - 123 U/LCleveland ClinicALT [Catalytic activity/Vol]42 U/LHigh7 - 38 U/LCleveland ClinicAnion gap [Moles/Vol]10 mmol/L8 - 15 mmol/L Chicago ClinicAST [Catalytic activity/Vol]22 U/L13 - 35 U/LCleveland Clinic Bilirubin [Mass/Vol]0.2 mg/dL0.2 - 1.3 mg/dLChicago ClinicCalcium [Mass/Vol] 9.7 mg/dL8.5 - 10.2 mg/dLChicago ClinicChloride [Moles/Vol]103 mmol/L98 - 107 mmol/LCleveland ClinicCO2 [Moles/Vol]23 mmol/L22 - 30 mmol/LCleveland Clinic Creatinine [Mass/Vol]0.50 mg/dLLow0.58 - 0.96 mg/dLChillicothe Va Medical CenterGFR/1.73 sq M.predicted among non-blacks MDRD (S/P/Bld) [Vol [...] eGFRmay not accurately reflect actual GFR.Glucose [Mass/Vol]221 mg/gGAlml22 - 99 mg/dLChillicothe Va Medical CenterComment on above:The [place] Diabetes Association (ADA) provides guidance for cutoff [...] Standards of Medical Care in Diabetes 2016, [place] Diabetes [employer]. Diabetes Care. 2016.39(Suppl 1). Interpretation and review of laboratory resultsAbnormalCleveland ClinicPotassium [Moles/Vol]4.1 mmol/L3.7 - 5.1 mmol/LCglenbeigh hospital ClinicProtein [Mass/Vol]6.8 g/dL 6.3 - 8.0 g/dLChicago ClinicSodium [Moles/Vol]136 mmol/L136 - 144 mmol/L [facility] Medical CenterUrea nitrogen [Mass/Vol]15 mg/dL7 - 21 mg/dLMercy Health St. Elizabeth Youngstown HospitalComprehensive metabolic 2000 panelon [id number] [Mass/Vol]3.9 g/dLNormal3.9-4.9CSelect Medical Specialty Hospital [facility] on above:Order Comment: Specimen Type: BLOOD SPECIMENOrdering Facility: [facility] Address:[address] [place] [id number] By: #### [id number]- [id number] ####[facility] LABCLIA [id number] [place], [place] [address]NFE [Catalytic activity/Vol]83 U/RGgfksk96-044DvicxcfkiFirelands Regional [facility] on above:Order Comment: Specimen Type: BLOOD SPECIMENOrdering Facility: [facility] Address:[address] [place], [place] [address]Ksnmowoju By: #### 68586-9 ####[facility] LABCLIA [id number] [place], [place] [address]XLP [Catalytic activity/Vol]42 U/LHigh7-38[facility] on above:Order Comment: Specimen Type: BLOOD SPECIMENOrdering Facility: [facility] Address:[address] [place], [place] [id number] By: #### [id number]- [id number] ####[facility] LABCLIA [id number] [facility] JA DRIVERDIGNITY HEALTH ARIZONA SPECIALTY HOSPITALCAYDENSALINA, [place] [address]Vwjzd gap [Moles/Vol]10 mmol/LNormal8-15[facility] on above:Order Comment: Specimen Type: BLOOD SPECIMENOrdering Facility: [facility] Address:[address] [place], [place] [address]Performed By: #### 96584-6 ####[facility] LABCLIA [id number] [place], [place] [address]QJC [Catalytic activity/Vol]22 U/DHbostp82-26ArwbfecxmFirelands Regional Medical Center [facility] Campus on above:Order Comment: Specimen Type: BLOOD SPECIMENOrdering Facility: [facility] HOSPITAL Address:[address] [place], [place] [address]Performed By: #### 76724-7 ####[facility] LABCLIA [id number] [place] [address] Bilirubin [Mass/Vol]0.2 mg/dLNormal0.2-1.3C[facility] on above:Order Comment: Specimen Type: BLOOD SPECIMENOrdering Facility: [facility] Address:[address] [place], [place] [address]Performed By: #### 62409-2 ####[facility] LABCLIA [id number] [facility] ONTARIOMAGGYDIGNITY HEALTH ARIZONA SPECIALTY HOSPITALAMAYACOUNT[place]LINE, [place] [address]Plaqofq [Mass/Vol]9.7 mg/dLNormal8.5-10.2C[facility] on above:Order Comment: Specimen Type: BLOOD SPECIMENOrdering Facility: [facility] Address:[address] [place], [place] [address]Performed By: #### 69616-3 ####[facility] LABCLIA [id number] [facility] H[facility]PITALAMAYAC[place]LINE, [place] [address]Ueobdyrf [Moles/Vol]103 mmol/XNyegei04-940LjjxgumpjFirelands [facility] on above: Order Comment: Specimen Type: BLOOD SPECIMENOrdering Facility: [facility] Address:[address] [place], [place] [address]Performed By: #### 31438- 8 ####[facility] LABCLIA [id number] [place], [place] [address]GB5 [Moles/Vol]23 mmol/RMsbjpe52-24FzzcmbhqhFirelands Regional Medical Center [facility] on above:Order Comment: Specimen Type: BLOOD SPECIMENOrdering Facility: [facility] Address:[address] [place], [place] [address]Performed By: #### 29080-3 ####[facility] LABCLIA [id number] [place], [place] [address]Beubtxkgzw [Mass/Vol]0.50 mg/dL Low0.58-0.96[facility] on above:Order Comment: Specimen Type: BLOOD SPECIMENOrdering Facility: [facility] Address:[address] [place], [place] [address]Performed By: #### 73521-3 ####[facility] LABCLIA [id number] [place] [address] eGFRcr SerPlBld CKD-EPI 2151424 mL/min/1.73m???Normal>=60[facility] on above:Order Comment: Specimen Type: BLOOD SPECIMENOrdering Facility: [facility] Address:[address] [place], [place] [address]Result Comment: Estimated Glomerular Filtration Rate (eGFR) is [...] accurately reflect actual GFR. Performed By: #### 49760-9 ####[facility] LABCLIA [id number] [place], [place] [address]Seyjlcm [Mass/Vol]221 mg/dLHigh 74-99[facility] on above:Order Comment: Specimen Type: BLOOD SPECIMENOrdering Facility: [facility] Address:[address] [place], [place] [address]Result Comment: The [place] Diabetes Association (ADA) provides guidance for cutoff [...] Standards of Medical Care in Diabetes 2016, Pakistani Diabetes Association. Diabetes Care. 2016.39(Suppl 1).Performed By: #### 31131-7 ####[facility] LABCLIA [id number] [place], [place] [address]Srihsiepz [Moles/Vol]4.1 mmol/LNormal3.7-5.1C[facility] on above:Order Comment: Specimen Type: BLOOD SPECIMENOrdering Facility: [facility] Address:[address] [place], [place] [address]Performed By: #### 17720-2 ####[facility] LABCLIA [id number] [place], [place] [address]Tzpvjar [Mass/Vol]6.8 g/dLNormal6.3-8.0[facility] on above:Order Comment: Specimen Type: BLOOD SPECIMENOrdering Facility: [facility] Address:[address] [place], [place] [address]Performed By: #### 59327- 8 ####[facility] LABCLIA [id number] [place], [place] [address]Rjresm [Moles/Vol]136 mmol/ASqnxgw436-476QhtiywqfsFirelands Regional Medical Center [facility] on above:Order Comment: Specimen Type: BLOOD SPECIMENOrdering Facility: [facility] Address:[address] [place], [place] [address]Performed By: #### 17533-8 ####[facility] LABCLIA [id number] [place], [place] [address]Ljgn nitrogen [Mass/Vol]15 mg/dLNormal7-[facility] on above:Order Comment: Specimen Type: BLOOD SPECIMENOrdering Facility: [facility] Address:[address] [place], [place] [address]Performed By: #### 85973-6 ####[facility] LABIA [id number] [place], [place] [address]EKO Westergren method (Bld) [Velocity]on 62-10-1745SMF (Bld) [Velocity]34 mm/hHigh0-20[facility] on above:Order Comment: Specimen Type: BLOOD SPECIMENOrdering Facility: [facility] Address:[address] [place], [place] [address]Performed By: #### 4537-7 ####[facility] [id number] [place] [address] [place]BV core Ab Ser Qlon 01-11-2025 HBV core Ab Ql (S)NegativeNormalNegativeFirelands [facility] on above:Order Comment: Specimen Type: BLOOD SPECIMENOrdering Facility: [facility] Address:[address] [place], [place] [address]Result Comment: No evidence of current or past infection with Hepatitis B virus. Should recent infection be suspected, repeat testing may be considered 3-4 weeks after this draw.Performed By: #### 5195-3, 37930-7, 37911-9 ####[facility] LABIA [id number] [address] [place] AMER[place]AHBV surface Ab Ql (S)on 93-43-0030AII surface Ab Qn (S)177.77 mIU/mLNormalFirelands Regional Medical [facility] on above:Order Comment: Specimen Type: BLOOD SPECIMENOrdering Facility: [facility] Address:[address] [place], [place] [address]Result Comment: <8 mIU/mL: No serological evidence of immunity to Hepatitis B Virus.>/= 8 to <12 mIU/mL: No serological evidence of immunity to Hepatitis B Virus.>/= 12 mIU/mL: Consistentwith serological evidence of immunity to Hepatitis B Virus.Performed By: #### 5195-3, 86582-1, 08027-8 ####[facility] LABIA [id number] VIL[place] [address] [place] AMERICAHBV surface Ab Ser Ql on 63-13-3119WVH surface Ab Ql (S)PositiveNormalCDayton Children's Hospital Comment on above:Order Comment: Specimen Type: BLOOD SPECIMENOrdering Facility: [facility] Address:[address] [place], [place] [address]Result Comment: Consistent with serological evidence of immunity to Hepatitis B Virus. Performed By: #### 5195-3, 82550-8, 67157-5 ####[facility] LABIA [id number] VIL[place] [address] [place] AMER[place]AHBV surface Ag Ser Qlon 16-57-0889ONB surface Ag Ql (S)NegativeNormal NegativeFirelands Regional Medical [facility] on above:Order Comment: Specimen Type: BLOOD SPECIMENOrdering Facility: [facility] Address:[address] [place], [place] [address]Performed By: #### 5195-3, 80935-3, 85911-1 ####[facility] LABSPR[facility] [id number] VILLE [address] [place] AMERICAHCV Ab Ser Qlon 46-52-0115VWC Ab Ql (S)NegativeNormalNegativeFirelands [facility] on above:Order Comment: Specimen Type: BLOOD SPECIMENOrdering Facility: [facility] Address:[address] [place], [place] [address]Result Comment: The result suggests no evidence of infection with Hepatitis C virus. Should recent i nfection be suspected, repeat testing may be considered 4-6 weeks after this draw.Performed By: #### 16728-2 ####[facility] LABCLIA [id number] [place] [address] [place] Vit B12 SerPl-mCncon 10-78-3871Qvjuelgdr (Vitamin B12) [Mass/Vol]710 pg/mLNormal 232-1245CSelect [facility] on above:Order Comment: Specimen Type: BLOOD SPECIMENOrdering Facility: [facility] Address:[address] [place], [place] [address]Performed By: #### 1988-5, 2132-9 ####[facility] LABCLIA [id number] [address] OF [facility]PITALCB W Auto Differential panel (Bld)on 11-29-2024 Basophils (Bld) [#/Vol]0.09 10*3/uLNormal<0.11C[facility] on above:Order Comment: Specimen Type: BLOOD SPECIMENOrdering Facility: [facility] Address:[address] [place] [address] Performed By: #### 03418-6 ####[facility] LABCLIA [id number] [place], [place] [address]Kdnpfkbow/100 WBC (Bld)0.7 % NormalFirelands Regional Medical Center [facility] on above:Order Comment: Specimen Type: BLOOD SPECIMENOrdering Facility: [facility] Address:[address] [place], [place] [address]Performed By: #### 46465-3 ####[facility] LABCLIA [id number] [place] [address] Differential cell count method Nom (Bld)AutoNormalCDayton Children's Hospital Comment on above:Order Comment: Specimen Type: BLOOD SPECIMENOrdering Facility: [facility] Address:[address] [place] [address] Performed By: #### 44530-6 ####[facility] LABCLIA [id number] [place], [place] [address]Kjhihepsbza (Bld) [#/Vol]0.09 10*3/uLNormal<0.46[facility] on above:Order Comment: Specimen Type: BLOOD SPECIMENOrdering Facility: [facility] Address:[address] [place], [place] [address]Performed By: #### 80844-2 ####[facility] LABCLIA [id number] [place], [place] [address]Aswrhboocxc/100 WBC (Bld)0.7 %NormalFirelands Regional Medical Center [facility] on above:Order Comment: Specimen Type: BLOOD SPECIMENOrdering Facility: [facility] Address:[address] [place], [place] [address]Performed By: #### 58226-3 ####[facility] LABIA [id number] [place], [place] [address]Houushsjmmf distribution width (RBC) [Ratio]14.8 %Xdhiow28.5-15.0[facility] on above: Order Comment: Specimen Type: BLOOD SPECIMENOrdering Facility: [facility] Address:[address] [place], [place] [address]Performed By: #### 91761- 8 ####[facility] LABCLIA [id number] [place], [place] [address]Vqtqdmbmqq (Bld) [Volume fraction]42.9 %Uhlsyy93.0-46.0 [facility] on above:Order Comment: Specimen Type: BLOOD SPECIMENOrdering Facility: [facility] Address:[address] [place], [place] [address]Performed By: #### 86040-5 ####[facility] LABIA [id number] [place], [place] [address]Pbksppefnr (Bld) [Mass/Vol]14.0 g/yRSxenol19.5-15.5CSelect [facility] on above: Order Comment: Specimen Type: BLOOD SPECIMENOrdering Facility: [facility] Address:[address] [place], [place] [address]Performed By: #### 78624- 8 ####[facility] LABCLIA [id number] [place], [place] [address]Xcrthuwb granulocytes (Bld) [#/Vol]0.18 10*3/uLHigh<0.10 [facility] on above:Order Comment: Specimen Type: BLOOD SPECIMENOrdering Facility: [facility] Address:[address] [place], [place] [address]Performed By: #### 63306-8 ####[facility] LABIA [id number] [place], [place] [address]Ctbnrbhq granulocytes/100 WBC (Bld)1.5 %[facility] on above: Order Comment: Specimen Type: BLOOD SPECIMENOrdering Facility: [facility] Address:[address] [place], [place] [address]Performed By: #### 06653- 8 ####[facility] LABCLIA [id number] [place], [place] [address]Mkunwlwiewp (Bld) [#/Vol]1.99 10*3/uLNormal1.00-4.00 [facility] on above:Order Comment: Specimen Type: BLOOD SPECIMENOrdering Facility: [facility] Address:[address] [place], [place] [address]Performed By: #### 86214-6 ####[facility] LABIA [id number] [place], [place] [address]Nqvqbyxsiva/100 WBC (Bld)16.4 %NormalFirelands Regional Medical [facility] on above:Order Comment: Specimen Type: BLOOD SPECIMENOrdering Facility: [facility] Address:[address] [place], [place] [address]Performed By: #### 10170-1 ####[facility] LABCLIA [id number] [place], [place] [address]LUC (RBC) [Entitic mass]31.7 fdXkyyzg39.0-34.0[facility] on above:Order Comment: Specimen Type: BLOOD SPECIMENOrdering Facility: [facility] Address:[address] [place], [place] [address]Performed By: #### 31681-1 ####[facility] LABCLIA [id number] [place], [place] [address]THGS (RBC) [Mass/Vol]32.6 g/mWIzozxu79.5-36.0[facility] on above: Order Comment: Specimen Type: BLOOD SPECIMENOrdering Facility: [facility] Address:[address] [place], [place] [address]Performed By: #### 07425- 8 ####[facility] LABCLIA [id number] [place], [place] [address]MXV (RBC) [Entitic vol]97.1 kKWtalpw41.0-100.0[facility] on above:Order Comment: Specimen Type: BLOOD SPECIMENOrdering Facility: [facility] Address:[address] [place], [place] [address]Performed By: #### 66461-9 ####[facility] LABCLIA [id number] [place], [place] [address]Hfpljhvre (Bld) [#/Vol]0.67 10*3/uLNormal<0.87[facility] on above:Order Comment: Specimen Type: BLOOD SPECIMENOrdering Facility: [facility] Address:[address] [place], [place] [address]Performed By: #### 20915- 8 ####[facility] LABIA [id number] [place], [place] [address]Dgeeqerom/100 WBC (Bld)5.5 %NormalCleveland Clinic ClevelandComment on above:Order Comment: Specimen Type: BLOOD SPECIMENOrdering Facility: [facility] Address:[address] [place], [place] [address]Performed By: #### 16990-4 ####[facility] LABCLIA [id number] [place], [place] [address]Magtoapchbw (Bld) [#/Vol]9.15 10*3/uLHigh1.45-7.50[facility] on above:Order Comment: Specimen Type: BLOOD SPECIMENOrdering Facility: [facility] Address:[address] [place], [place] [address]Performed By: #### 93839-8 ####[facility] LABCLIA [id number] [place], [place] [address]Ssqftxchdjk/100 WBC (Bld)75.2 %NormalFirelands Regional Medical Center [facility] on above:Order Comment: Specimen Type: BLOOD SPECIMENOrdering Facility: [facility] Address:[address] [place], [place] [address]Performed By: #### 86764-3 ####[facility] LABCLIA [id number] [place], [place] [address]Hquabyjru RBC (Bld) [#/Vol] 10*3/uLNormal<0.01[facility] on above:Order Comment: Specimen Type: BLOOD SPECIMENOrdering Facility: [facility] Address:[address] [place], [place] [address]Performed By: #### 25355-8 ####[facility] LABCLIA [id number] [place], [place] [address]Ufuumxuni RBC/100 WBC (Bld) [Ratio]0.0 /100 WBCNormal [facility] on above:Order Comment: Specimen Type: BLOOD SPECIMENOrdering Facility: [facility] Address:[address] [place], [place] [address]Performed By: #### 55959-3 ####[facility] LABCLIA [id number] [place], [place] [address]Qypxgysx mean volume (Bld) [Entitic vol]9.7 fLNormal9.0-12.7CSelect [facility] on above:Order Comment: Specimen Type: BLOOD SPECIMENOrdering Facility: [facility] Address:[address] [place] [address] Performed By: #### 56505-7 ####[facility] LABCLIA [id number] [place], [place] [address]Rqosyacfc (Bld) [#/Vol]281 10*3/sHPtoxcr274-998WmnojgihoFirelands Regional [facility] Center [facility] on above:Order Comment: Specimen Type: BLOOD SPECIMENOrdering Facility: [facility] Address:[address] [place], [place] [address]Performed By: #### 58454-6 ####[facility] LABCLIA [id number] [place], [place] [address]NSK (Bld) [#/Vol]4.42 10*6/uLNormal3.90-5.20[facility] on above:Order Comment: Specimen Type: BLOOD SPECIMENOrdering Facility: [facility] Address:[address] [place], [place] [address]Performed By: #### 92968-9 ####[facility] LABCLIA [id number] [place], [place] [address]YQC (Bld) [#/Vol]12.17 10*3/uLHigh3.70-11.00[facility] on above: Order Comment: Specimen Type: BLOOD SPECIMENOrdering Facility: [facility] Address:[address] [place], [place] [address]Performed By: #### 77001- 8 ####[facility] LABCLIA [id number] [place], [place] [address]GVTFTNkf 88-38-4973YFUYFBHwrizkWlhsiabscMercy Health [facility] Hospital metabolic 2000 panelon 59-09-4718Deewoce [Mass/Vol]4.1 g/dLNormal 3.9-4.9C[facility] on above:Order Comment: Specimen Type: BLOOD SPECIMENOrdering Facility: [facility] Address:[address] [place], [place] [address]Performed By: #### 28921-6 ####[facility] LABCLIA [id number] [place], [place] [address]DBH [Catalytic activity/Vol]61 U/HXrecrx35-358YwjshccxvFirelands Regional [facility] on above:Order Comment: Specimen Type: BLOOD SPECIMENOrdering Facility: [facility] Address:[address] [place], [place] [address]Performed By: #### 33763-6 ####[facility] LABCLIA [id number] [place], [place] [address]CND [Catalytic activity/Vol]39 U/LHigh7-38[facility] on above:Order Comment: Specimen Type: BLOOD SPECIMENOrdering Facility: [facility] Address:[address] [place], [place] [address]Performed By: #### 49565-2 ####[facility] LABCLIA [id number] [place], [place] [address]Nhtig gap [Moles/Vol]13 mmol/LNormal8-15[facility] on above:Order Comment: Specimen Type: BLOOD SPECIMENOrdering Facility: [facility] Address:[address] [place], [place] [address]Performed By: #### 35947- 8 ####[facility] LABCLIA [id number] [facility] [place], [place] [address]BGP [Catalytic activity/Vol]16 U/IJqganj56-54FzycaocoyFirelands Regional Medical [facility] on above:Order Comment: Specimen Type: BLOOD SPECIMENOrdering Facility: [facility] Address:[address] [place], [place] [address]Performed By: #### 12675-4 ####[facility] LABCLIA [id number] [place] [address]Fxhnihneg [Mass/Vol]0.2 mg/dLNormal0.2-1.3CSelect [facility] on above:Order Comment: Specimen Type: BLOOD SPECIMENOrdering Facility: [facility] Address:[address] [place], [place] [address]Performed By: #### 30054- 8 ####[facility] LABCLIA [id number] [place], [place] [address]Seloyao [Mass/Vol]9.7 mg/dLNormal8.5-10.2C[facility] on above:Order Comment: Specimen Type: BLOOD SPECIMENOrdering Facility: [facility] Address:[address] [place], [place] [address]Performed By: #### 18179-5 ####[facility] LABCLIA [id number] [place], [place] [address]Ahsqooun [Moles/Vol]102 mmol/L Ebxwvd10-985KzmxgorfxFirelands Regional [facility] on above:Order Comment: Specimen Type: BLOOD SPECIMENOrdering Facility: [facility] Address:[address] [place], [place] [address]Performed By: #### 26699-5 ####[facility] LABCLIA [id number] [place] [address] CO2 [Moles/Vol]23 mmol/IWmyvlo81-33RcqgwlbsgFirelands [facility] on above: Order Comment: Specimen Type: BLOOD SPECIMENOrdering Facility: [facility] Address:[address] [place], [place] [address]Performed By: #### 02309- 8 ####[facility] LABCLIA [id number] [place], [place] [address]Ytovubswkg [Mass/Vol]0.58 mg/dLNormal0.58-0.96[facility] on above:Order Comment: Specimen Type: BLOOD SPECIMENOrdering Facility: [facility] Address:[address] [place] [address]Hnbtdcjyd By: #### 18779-8 ####[facility] LABCLIA [id number] [place], [place] [address]Cozepwdvja and Glomerular filtration rate.predicted panel (S/P/Bld)115 mL/min/1.73m???Normal >=60[facility] on above:Order Comment: Specimen Type: BLOOD SPECIMENOrdering Facility: [facility] Address:[address] [place] [address]Liyzvg Comment: Estimated Glomerular Filtration Rate (eGFR) is calculated using the 2020 CKD-EPI creatinine equation. This equation utilizes serum creatinine, sex, and age as parameters. The creatinine assay has traceable calibration to isotope dilution-mass spectrometry. Refer to KDIGO guidelines for clinical interpretation. In patients with unstable renal function, e.g. those with acute kidney injury, the eGFR may not accurately reflect actual GFR.Performed By: #### 22475-8 ####[facility] LABCLIA [id number] [place], [place] [address]Abeibrm [Mass/Vol]233 mg/sBMezu12-77TpyalyybxFirelands Regional [facility] on above:Order Comment: Specimen Type: BLOOD SPECIMENOrdering Facility: [facility] Address:[address] [place] [address]Edwbnx Comment: The [place] Diabetes Association (ADA) provides guidance for cutoff [...] Standards of Medical Care in Diabetes 2016, [place] Diabetes Association. Diabetes Care. 2016.39(Suppl 1).Performed By: #### 87075-9 ####[facility] LABCLIA [id number] [place], [place] [address]Jcaekanaa [Moles/Vol]4.0 mmol/LNormal3.7-5.1CSelect [facility] on above: Order Comment: Specimen Type: BLOOD SPECIMENOrdering Facility: [facility] Address:[address] [place], [place] [address]Performed By: #### 80924- 8 ####[facility] LABCLIA [id number] [place], [place] [address]Hymjobc [Mass/Vol]7.0 g/dLNormal6.3-8.0[facility] on above:Order Comment: Specimen Type: BLOOD SPECIMENOrdering Facility: [facility] Address:[address] [place], [place] [address]Performed By: #### 15282-4 ####[facility] LABCLIA [id number] [place], [place] [address]Elrusn [Moles/Vol]138 mmol/L Pxmywn647-490JdyqqkdciFirelands Regional [facility] on above:Order Comment: Specimen Type: BLOOD SPECIMENOrdering Facility: [facility] Address:[address] [place], [place] [address]Performed By: #### 92311-2 ####[facility] LABIA [id number] [place] [address] Urea nitrogen [Mass/Vol]16 mg/dLNormal7-21[facility] on above:Order Comment: Specimen Type: BLOOD SPECIMENOrdering Facility: [facility] Address:[address] [place], [place] [address]Performed By: #### 95285-4 ####[facility] LABIA [id number] [place], [place] [address]Mbtmzdfe [facility] Cancer Centerpatt 72-52-9120Epdueztt [Mass/Vol] 63.6 ng/lNIxjkus15.7-205.1C[facility] on above:Order Comment: Specimen Type: BLOOD SPECIMENOrdering Facility: [facility] Address:[address] [place], [place] [address]Performed By: #### 2284- 8, 43827-3, 6-4, 9 ####[facility] LABCLIA [id number] [place] [address] [place] OF AMERICAFolate SerPl-mCncon [phone] [Mass/Vol]ng/mLNormal>4.7C[facility] on above:Order Comment: Specimen Type: BLOOD SPECIMENOrdering Facility: [facility] Address:[address] [place], [place] [address]Result Comment: A result of > 20 ng/mL is not necessarily indicative of a pathologic or treatable condition: it reflects a limitation of the test methodology.Assay reference range: 4.8 to 24.2 ng/mL. Suitable for detection of folate deficiency.Reference:Folate III (Folate III) [package insert V 1.0 Burmese]. [facility], [place], [place]: March 2015.Performed By: #### 2284-8, 80748-2, 2275-4, 2132-01 ####[facility] LABCLIA [id number] [place] [address] [place] IMMUNOGLOBULINS,IGG,IGA,IGMon [id number] [Mass/Vol]169 mg/pYSgmnwy80-346 [facility] on above:Order Comment: Specimen Type: BLOOD SPECIMENOrdering Facility: [facility] Address:[address] [place], [place] [address]Performed By: #### SERIMM ####[facility] [facility] LABCLIA [id number] [place] [address] [place] AMERICAIgG [Mass/Vol]596 mg/bZAfp818-9255DndqejajnFirelands Regional Medical Center [facility] on above:Order Comment: Specimen Type: BLOOD SPECIMENOrdering Facility: [facility] Address:[address] [place], [place] [address]Performed By: #### SERIMM ####[facility] LABCLIA [id number] [address] [address] [place] OF AMERICAIgM [Mass/Vol]410 mg/dL Bocg08-423TcivzntkpFayette County Memorial HospitalComment on above:Order Comment: Specimen Type: BLOOD SPECIMENOrdering Facility: [facility] Address:[address] [place], [place] [address]Performed By: #### SERIMM ####[facility] LABCLIA [id number] [address] [address] [place] OF AMERICAIron and Iron binding capacity panelon 73-21-1762Jwzq [Mass/Vol]154 ug/rFXwvviu04-277PrpgmfoguFirelands Regional Medical Center South Campus on above:Order Comment: Specimen Type: BLOOD SPECIMENOrdering Facility: [facility] Address:[address] [place], [place] [address]Performed By: #### 2284- 8, 37385-8, 6-4, 9 ####[facility] LABCLIA [id number] [address] [address] [place] OF AMERICAIron binding capacity [Mass/Vol]363 ug/tVAusywh362-525VovoerisiFayette County Memorial Hospital Comment on above:Order Comment: Specimen Type: BLOOD SPECIMENOrdering Facility: [facility] Address:[address] [place] [address] Performed By: #### 2284-8, 71083-8, 6-4, 9 ####[facility] LABIA [id number] [place] [address] [place] OF AMERICAIron/TIBC [Molar ratio]42.4 %Shoveb19.0-57.0[facility] on above:Order Comment: Specimen Type: BLOOD SPECIMENOrdering Facility: [facility] Address:[address] [place], [place] [address]Performed By: #### 2284-8, 89124-4, 4, 2132-01 ####[facility] LABCLIA [id number] [place] [address] [place] [facility] HOSPITALVit B12 SerP-ncon 12-52-9066Sihbnyuej (Vitamin B12) [Mass/Vol]775 pg/yQKhbkil268-9496TwjjetfkoSelect Medical Specialty Hospital - [facility]on on above: Order Comment: Specimen Type: BLOOD SPECIMENOrdering Facility: [facility] Address:[address] [place], [place] [address]Performed By: #### 2284- 8, 71509-1, 2275-08, 2132-01 ####[facility] LABCLIA [id number] [address] STATES OF [facility] HOSPITALCNPNon 07-20-7772OOZFTwrdamAvmdavsuh Clinic ClevelandCNPNon 07-02-0337UNMIMetohi F[facility] County Memorial HospitalCNPNon 01-18-7267VSSCDdzvhjOzkdqruby Clinic [place] 25([place])D3 [facility] Centeron 70-26-293754532277-dmctqhdxiaswrk D3 [Mass/Vol]30.9 ng/mLLow 31.0-80.0[facility] on above:Order Comment: Specimen Type: BLOOD SPECIMENOrdering Facility: [facility] Address:[address] [place], [place] [address]Result Comment: Classification of 25 [place] Vitamin D status:Deficiency/Insufficiency: < or = 30 ng/ml.Sufficiency/Optimal Levels: 31-80 ng/mLToxicity: > 100 ng/mL.Test performed by chemiluminescent immunoassay. Performed By: #### 1989-3 ####[facility] LABCLIA [id number] [place] [address] [place]OGER 25-hydroxyvitamin D3 [Mass/Vol]on 63-33-7623Cphvqxeoanaowd and review of laboratory resultsAbnormalCSt. Mary's Medical CenterThe reference range interval was based on an analysis of samples from healthy adults and may not pertain to children from 0-18 years old. [facility] CenterC-REACTIVE PROTEINon 15-20-5395SQG [Mass/Vol] mg/dLNINF - 0.9 mg/dLFirelands Regional Medical Center South CampusC panel Auto (Bld)on 10-02-2024 Erythrocyte distribution width (RBC) [Ratio]16.2 %High11.5 - 15.0 %[facility] Medical CenterHematocrit (Bld) [Volume fraction]41.3 %36.0 - 46.0 %[facility] Hemoglobin (Bld) [Mass/Vol]13.7 g/dL11.5 - 15.5 g/dLChillicothe Va Medical Center Interpretation and review of laboratory resultsAbnormalCSumma Health Akron CampusH (RBC) [Entitic mass]31.1 pg26.0 - 34.0 pgClevelSt. Francis Medical CenterHC (RBC) [Mass/Vol]33.2 g/dL30.5 - 36.0 g/dLChillicothe Va Medical CenterMCV (RBC) [Entitic vol]93.7 fL80.0 - 100.0 fLCleveland ClinicNucleated RBC (Bld) [#/Vol]NINFCleveland ClinicPlatelet mean volume (Bld) [Entitic vol]10.1 fL9.0 - 12.7 fLCleveland ClinicPlatelets (Bld) [#/Vol]265 10*3/uLChillicothe Va Medical CenterRBC (Bld) [#/Vol]4.41 10*6/uL3.90 - 5.20 m/uL [facility] Medical CenterWBC (Bld) [#/Vol]10.07 10*3/uLWexner Medical Center Erythrocyte distribution width (RBC) [Ratio]16.2 %High11.5-15.0[facility] on above:Order Comment: Specimen Type: BLOOD SPECIMENOrdering Facility: [facility] Address:[address] [place], [place] [address]Fkinmswmb By: #### 93913-7 ####[facility] LABIA [id number] [place], [place] [address]Uvrslhtetc (Bld) [Volume fraction]41.3 %Ownvsr21.0-46.0[facility] on above:Order Comment: Specimen Type: BLOOD SPECIMENOrdering Facility: [facility] Address:[address] [place], [place] [address]Performed By: #### 67504- 2 ####[facility] LABCLIA [id number] [place], [place] [address]Qsnxuokion (Bld) [Mass/Vol]13.7 g/nONvhpje76.5-15.5 [facility] on above:Order Comment: Specimen Type: BLOOD SPECIMENOrdering Facility: [facility] Address:[address] [place], [place] [address]Performed By: #### 28306-0 ####[facility] LABCLIA [id number] [place], [place] [address]SMK (RBC) [Entitic mass]31.1 egOaajnz18.0-34.0[facility] on above: Order Comment: Specimen Type: BLOOD SPECIMENOrdering Facility: [facility] Address:[address] [place], [place] [address]Performed By: #### 43784- 2 ####[facility] LABCLIA [id number] [place], [place] [address]NZZK (RBC) [Mass/Vol]33.2 g/dYFmhlcm79.5-36.0[facility] on above:Order Comment: Specimen Type: BLOOD SPECIMENOrdering Facility: [facility] Address:[address] [place], [place] [address]Performed By: #### 18740-7 ####[facility] LABCLIA [id number] [place], [place] [address]OVX (RBC) [Entitic vol]93.7 fEEfpltj82.0-100.0[facility] on above: Order Comment: Specimen Type: BLOOD SPECIMENOrdering Facility: [facility] Address:[address] [place], [place] [address]Performed By: #### 40805- 2 ####[facility] LABCLIA [id number] [place], [place] [address]Teohwpdle RBC (Bld) [#/Vol]10*3/uLNormal<0.01[facility] on above:Order Comment: Specimen Type: BLOOD SPECIMENOrdering Facility: [facility] Address:[address] [place], [place] [address]Performed By: #### 32781-6 ####[facility] LABCLIA [id number] [place], [place] [address]Xzuvkzrj mean volume (Bld) [Entitic vol]10.1 fLNormal9.0-12.7CSelect Medical Specialty Hospital [facility]on on above:Order Comment: Specimen Type: BLOOD SPECIMENOrdering Facility: [facility] Address:[address] [place] [address] Performed By: #### 42907-8 ####[facility] LABCLIA [id number] [place], [place] [address]Ksvytnpjh (Bld) [#/Vol]265 10*3/gNZpihdz166-954UmskkbejoFirelands Regional Medical Center South Campus on above:Order Comment: Specimen Type: BLOOD SPECIMENOrdering Facility: [facility] Address:[address] [place], [place] [address]Performed By: #### 60429-6 ####[facility] LABCLIA [id number] [place], [place] [address]UML (Bld) [#/Vol]4.41 10*6/uLNormal3.90-5.20[facility] on above:Order Comment: Specimen Type: BLOOD SPECIMENOrdering Facility: [facility] Address:[address] [place], [place] [address]Performed By: #### 65197-9 ####[facility] LABCLIA [id number] [place], [place] [address]JDA (Bld) [#/Vol]10.07 10*3/uLNormal3.70-11.00[facility] on above: Order Comment: Specimen Type: BLOOD SPECIMENOrdering Facility: [facility] Address:[address] [place] [address]Myvewbmea By: #### 55665- 2 ####[facility] LABCLIA [id number] [place], [place] [address]GMO SerPl-mCncon 24-55-9925GQG [Mass/Vol]mg/LNormal<0.9 [facility] on above:Order Comment: Specimen Type: BLOOD SPECIMENOrdering Facility: [facility] Address:[address] [place] [address]Vdufqpvil By: #### 1988-5 ####[facility] LABCLIA [id number] [address] [address] [place] [facility] CENTERCRP [Mass/Vol]on 68-69-6189Xmrkfppnnlvyno and review of laboratory resultsNormalCleveland St. Charles HospitalComprehensive metabolic 2000 panel Ordered By: Josse Merlos on 68-97-9221Efwsjiw [Mass/Vol]3.9 g/dL3.9 - 4.9 g/dL [place] ClinicALP [Catalytic activity/Vol]61 U/L34 - 123 U/LCleveland [facility] ALT [Catalytic activity/Vol]41 U/LHigh7 - 38 U/LCleveland ClinicAnion gap [Moles/Vol]14 mmol/L8 - 15 mmol/LCleveland ClinicAST [Catalytic activity/Vol]18 U/L13 - 35 U/LCleveland ClinicBilirubin [Mass/Vol]0.2 mg/dL0.2 - 1.3 mg/dL [facility] Medical CenterCalcium [Mass/Vol]9.6 mg/dL8.5 - 10.2 mg/dLChillicothe Va Medical Center Chloride [Moles/Vol]107 mmol/L98 - 107 mmol/LCleveland ClinicCO2 [Moles/Vol]20 mmol/LLow22 - 30 mmol/LCleveland ClinicCreatinine [Mass/Vol]0.59 mg/dL0.58 - 0.96 mg/dLChillicothe Va Medical CenterGFR/1.73 sq M.predicted among non-blacks MDRD (S/P/Bld) [Vol rate/Area]115 mL/min/{1.73_m2}- PINFCOhio State University [facility] on above:Estimated Glomerular Filtration Rate (eGFR) is calculated using the 2020 CKD-EPI creatinine equation. This equation utilizes serum creatinine, sex, and age as parameters. The creatinine assay has traceable calibration to isotope dilution-mass spectrometry. Refer to KDIGO guidelines for clinical inte rpretation. In patients with unstable renal function, e.g. those with acute kidney injury, the eGFRmay not accurately reflect actual GFR.Glucose [Mass/Vol] 216 mg/dXXupm61 - 99 mg/dLWayne HealthCare Main Campus on above:The [place] Diabetes Association (ADA) provides guidance for cutoff [...] Standards of Medical Care in Diabetes 2016, [place] Diabetes Association. Diabetes Care. 2016.39(Suppl 1). Interpretation and review of laboratory resultsAbnormalCleveland ClinicPotassium [Moles/Vol]4.1 mmol/L3.7 - 5.1 mmol/LCveterans health administrationand ClinicProtein [Mass/Vol]6.8 g/dL 6.3 - 8.0 g/dLAccess Hospital Daytonodium [Moles/Vol]141 mmol/L136 - 144 mmol/L [facility] Medical CenterUrea nitrogen [Mass/Vol]19 mg/dL7 - 21 mg/dLMercy Health St. Elizabeth Youngstown HospitalComprehensive metabolic 2000 panelon 51-21-1378Rydmbuw [Mass/Vol]3.9 g/dLNormal3.9-4.9CSelect Medical Specialty Hospital [facility] on above:Order Comment: Specimen Type: BLOOD SPECIMENOrdering Facility: [facility] Address:[address] [place], [place] [address], [place] [address]Performed By: #### 00589- 8 ####[facility] LABCLIA [id number] [place] [address]XMV [Catalytic activity/Vol]61 U/KSsrztz47-063ZpmnmowbyFirelands Regional Medical Center South Campus on above:Order Comment: Specimen Type: BLOOD SPECIMENOrdering Facility: [facility] Address:[address] [place], [place] [address]Performed By: #### 88778-7 ####[facility] LABCLIA [id number] [place], [place] [address]ETK [Catalytic activity/Vol]41 U/LHigh7-38[facility] on above:Order Comment: Specimen Type: BLOOD SPECIMENOrdering Facility: [facility] Address:[address] [place], [place] [address]Performed By: #### 49151- 8 ####[facility] LABCLIA [id number] KERRI JA DRIVERDIGNITY HEALTH ARIZONA SPECIALTY HOSPITALAMAYACOUNTYLINE, [place] [address]Dfzhz gap [Moles/Vol]14 mmol/LNormal8-15[facility] on above:Order Comment: Specimen Type: BLOOD SPECIMENOrdering Facility: [facility] Address:[address] [place], [place] [address]Performed By: #### 10675-5 ####[facility] LABCLIA [id number] [place] [address]LRM [Catalytic activity/Vol]18 U/NFvdtaj36-47BgkocrrtqFirelands Regional Medical Center South [facility] on above:Order Comment: Specimen Type: BLOOD SPECIMENOrdering Facility: [facility] Address:[address] [place], [place] [address]Performed By: #### 16108-2 ####[facility] LABCLIA [id number] [place] PERESMAGGYDIGNITY HEALTH ARIZONA SPECIAL[place] [address] Bilirubin [Mass/Vol]0.2 mg/dLNormal0.2-1.3CSelect Medical Specialty Hospital [facility] on above:Order Comment: Specimen Type: BLOOD SPECIMENOrdering Facility: [facility] Address:[address] [place], [place] [address]Performed By: #### 73164-9 ####[facility] LABCLIA [id number] OSORIO BARNESDIGNITY HEALTH ARIZONA SPECIALTY HOSPITALAMAYACOUNTYLINE, [place] [address]Wqysxap [Mass/Vol]9.6 mg/dLNormal8.5-10.2CSelect Medical Specialty [facility] on above:Order Comment: Specimen Type: BLOOD SPECIMENOrdering Facility: [facility] Address:[address] [place], [place] [address]Performed By: #### 57210-8 ####[facility] LABCLIA [id number] [place] PERESMAGGYIR[place], [place] [address]Azdkrbgp [Moles/Vol]107 mmol/IPcrvhe10-784RzkkwscfhFirelands [facility] on above: Order Comment: Specimen Type: BLOOD SPECIMENOrdering Facility: [facility] Address:[address] [place], [place] [address]Performed By: #### 14059- 8 ####[facility] LABCLIA [id number] [place], [place] [address]DU0 [Moles/Vol]20 mmol/OFfj14-53WdxdcjrxwFirelands Regional Medical [facility] on above:Order Comment: Specimen Type: BLOOD SPECIMENOrdering Facility: [facility] Address:[address] [place], [place] [address]Performed By: #### 12193-9 ####[facility] LABCLIA [id number] OSORIO BARNESDIGNITY HEALTH ARIZONA SPECIALTY HOSPITALCAYDENSALINA, [place] [address]Fmwoiybqge [Mass/Vol]0.59 mg/dL Normal0.58-0.96[facility] on above:Order Comment: Specimen Type: BLOOD SPECIMENOrdering Facility: [facility] Address:[address] [place], [place] [address]Performed By: #### 05216-6 ####[facility] LABCLIA [id number] KERRI JA DRIVERDIGNITY HEALTH ARIZONA SPECIALTY HOSPITALAMAYACOUNTYLINE, [place] [address]Hwncstjgil and Glomerular filtration rate.predicted panel (S/P/Bld)115 mL/min/1.73m???Normal>=60[facility] on above:Order Comment: Specimen Type: BLOOD SPECIMENOrdering Facility: [facility] Address:[address] [place], [place] [address]Bmpyvz Comment: Estimated Glomerular Filtration Rate (eGFR) is [...] not accurately reflect actual GFR.Performed By: #### 28221-2 ####[facility] LABCLIA [id number] [place], [place] [address]Tgvsqmi [Mass/Vol]216 mg/bTZfyq55-36WixviurtsFirelands Regional Medical Center South [facility] on above:Order Comment: Specimen Type: BLOOD SPECIMENOrdering Facility: [facility] Address:[address] [place] [address]Tceyvs Comment: The [place] Diabetes Association (ADA) provides guidance for cutoff [...] Standards of Medical Care in Diabetes 2016, [place] Diabetes Association. Diabetes Care. 2016.39(Suppl 1).Performed By: #### 18872-6 ####[facility] LABCLIA [id number] [place], [place] [address]Btbshqslv [Moles/Vol]4.1 mmol/LNormal3.7-5.1CSelect Medical Specialty Hospital [facility] on above:Order Comment: Specimen Type: BLOOD SPECIMENOrdering Facility: [facility] Address:[address] [place] [id number] By: #### 61145-8 ####[facility] LABCLIA [id number] [place], [place] [address]Qmghuwb [Mass/Vol]6.8 g/dLNormal6.3-8.0[facility] on above:Order Comment: Specimen Type: BLOOD SPECIMENOrdering Facility: [facility] Address:[address] [place], [place] [address]Performed By: #### 84988- 8 ####[facility] LABCLIA [id number] [place], [place] [address]Qdiduf [Moles/Vol]141 mmol/KFqrybe802-799UrpoybwfjFirelands Regional [facility] on above:Order Comment: Specimen Type: BLOOD SPECIMENOrdering Facility: [facility] Address:[address] [place], [place] [address]Performed By: #### 04774-5 ####[facility] LABCLIA [id number] [place], [place] [address]Xryq nitrogen [Mass/Vol]19 mg/dLNormal7-21[facility] on above:Order Comment: Specimen Type: BLOOD SPECIMENOrdering Facility: [facility] Address:[address] [place], [place] [address]Performed By: #### 47570-4 ####[facility] LABCLIA [id number] [place], [place] [address]RDW Westergren method (Bld) [Velocity]on 82-93-9072GSY (Bld) [Velocity]28 mm/hHighChillicothe Va Medical CenterInterpretation and review of laboratory resultsAbnormalCleveland Cleveland Clinic Union HospitalR (Bld) [Velocity]28 mm/hHigh0-20[facility] on above:Order Comment: Specimen Type: BLOOD SPECIMENOrdering Facility: [facility] Address:[address] [place], [place] [address]Performed By: #### 4537-7 ####[facility] LABCLIA [id number] [place] [address] [place] OF AMERICAVITAMIN D 25 HYDROXYon 13-49-219433307270-eckeywpemjvgog D3 [Mass/Vol]30.9 ng/mLLow31.0 - 80.0 ng/mLClevelTwin City HospitalComment on above: Classification of 25 [place] Vitamin D status: Deficiency/Insufficiency: < or = 30 ng/ml. Sufficiency/Optimal Levels: 31-80 ng/mL Toxicity: > 100 ng/mL. Test performed by chemiluminescent immunoassay. DNA EXTRACTION BLOODOrdered By: Dominga Araujo on 69-22-1881UQWPMTSUMZTNH (NG/UL)189.3 ng/ulChillicothe Va Medical CenterTotal Yield94.65 ugChillicothe Va Medical CenterComment on above:Specimens will be available for 3 years from date of collection. To order testing on this specimen for [facility] patients, please place an [employer] order for DNA and RNA for Clinical Testing (SQNUCADD). To order for patients outside of the [facility] system, please request DNA and RNA for Clinical Testing, order code NUCADD. If additional paperwork is required for testing, please email completed forms to . VOLUME (UL) OF [id number] [facility] Community HospitalCNOVon 28-48-1009FKEO Magruder HospitalDNA EXTRACTION BLOODon 02-00-1071OJDCOSVMQJDBM (NG/UL)189.3 ng/ulNormalCDayton Children's HospitalComment on above:Order Comment: Specimen Type: BLOOD SPECIMENOrdering Facility: [facility] Address:[address] [place], [place] [address]Performed By: #### NUCBLD ####[facility] LIMSCLIA [id number] [place] [address] [place] OF AMERICATOTAL YIELD94.65 ugNormalCSelect Medical Specialty [facility] on above:Order Comment: Specimen Type: BLOOD SPECIMENOrdering Facility: [facility] Address:[address] [place], [place] [address]Result Comment: Specimens will be available for 3 years from date of collection. To order testing on this specimen for [facility] patients, please place an [employer] order for DNA and RNA for Clinical Testing (SQNUCADD). To order for patients outside of the [facility] system, please request DNA and RNA for Clinical Testing, order code NUCADD.If additional paperwork is required for testing,please email completed forms to . Performed By: #### NUCBLD ####[facility] LIMSCLIA [id number] [place] [address] [place] OF AMERICAVOLUME (UL) OF [id number] uLNormWooster Community Hospital on above:Order Comment: Specimen Type: BLOOD SPECIMENOrdering Facility: [facility] Address:[address] [place], [place] [address]Performed By: #### NUCBLD ####[facility] LIMSCLIA [id number] [address] STATES OF AMERICACNPNon 46-56-9115TVTAYejitbXpstthbix Clinic ClevelandCNPNon 09-13-2024 CNPNNormalFayette County Memorial HospitalCNOVSPon 15-53-8617RRUADSOcimruOgvgsvexq Clinic ClevelandCNPNon 13-40-9336UDBARuoeciSmiulnyzaLicking Memorial Hospital IMMUNOGLOBULINS,IGG,IGA,IGMon 32-41-3015QnT [Mass/Vol]163 mg/tEBikclu01-209 [facility] on above:Order Comment: Specimen Type: BLOOD SPECIMENOrdering Facility: [facility] Address:[address] [place], [place] [address]Performed By: #### SERIMM ####[facility] LABCLIA [id number] [place] [address] [place] AMERICAIgG [Mass/Vol]599 mg/mBGhb420-2110QursfougpFirelands Regional Medical Center [facility] on above:Order Comment: Specimen Type: BLOOD SPECIMENOrdering Facility: [facility] Address:[address] [place], [place] [address]Performed By: #### SERIMM ####[facility] LABCLIA [id number] [place] [address] [place] AMERICAIgM [Mass/Vol]387 mg/dL Cxpd82-593EzzmhqpmrFirelands Regional Medical [facility] on above:Order Comment: Specimen Type: BLOOD SPECIMENOrdering Facility: [facility] Address:[address] [place], [place] [address]Performed By: #### SERIMM ####[facility] LABCLIA [id number] [place] [address] [place] AMERICALaboratory - Chemistry and Chemistry - challengeon 17-49-7420UmO [Mass/Vol]163 mg/dL70 - 400 mg/dLChillicothe Va Medical CenterIgG [Mass/Vol]599 mg/mNFsi254 - 1600 mg/dLChillicothe Va Medical CenterIgM [Mass/Vol]387 mg/wVUvsz74 - 230 mg/dLChillicothe Va Medical CenterNo Panel Informationon 24-80-1500Zzlmotfrmlordr and review of laboratory resultsAbnormalCProMedica Memorial Hospital W Auto Differential panel (Bld)on 43-77-7187Jiwypivzj (Bld) [#/Vol]0.06 10*3/uLNormal <0.11CSelect [facility] on above:Order Comment: Specimen Type: BLOOD SPECIMENOrdering Facility: [facility] Address:[address] [place], [place] [address]Performed By: #### 71354-0 ####[facility] LABCLIA [id number] [place] [address] Basophils/100 WBC (Bld)0.5 %NormalFirelands Regional Medical Center South Campus on above: Order Comment: Specimen Type: BLOOD SPECIMENOrdering Facility: [facility] Address:[address] [place], [place] [address]Performed By: #### 02768- 8 ####[facility] LABCLIA [id number] [place], [place] [address]Eardhvjxefrv cell count method Nom (Bld)AutoNormal [facility] on above:Order Comment: Specimen Type: BLOOD SPECIMENOrdering Facility: [facility] Address:[address] [place], [place] [address]Performed By: #### 77511-0 ####[facility] LABCLIA [id number] [place], [place] [address]Itmaommlvbw (Bld) [#/Vol]0.08 10*3/uLNormal<0.46[facility] on above: Order Comment: Specimen Type: BLOOD SPECIMENOrdering Facility: [facility] Address:[address] [place], [place] [address]Performed By: #### [id number] ####[facility] LABCLIA [id number] [place], [place] [address]Kpmiaamuzny/100 WBC (Bld)0.6 %NormalFirelands Regional [facility] on above:Order Comment: Specimen Type: BLOOD SPECIMENOrdering Facility: [facility] Address:[address] [place], [place] [address]Performed By: #### [id number] ####[facility] LABIA [id number] [place], [place] [address]Pwdusqujarx distribution width (RBC) [Ratio]16.0 %High11.5-15.0[facility] on above:Order Comment: Specimen Type: BLOOD SPECIMENOrdering Facility: [facility] Address:[address] [place], [place] [address]Performed By: #### [id number] ####[facility] LABCLIA [id number] [place], [place] [address]Gxhrzhqava (Bld) [Volume fraction]42.9 %Fmypjx43.0-46.0 [facility] on above:Order Comment: Specimen Type: BLOOD SPECIMENOrdering Facility: [facility] Address:[address] [place], [place] [address]Performed By: #### 17614-6 ####[facility] LABIA [id number] [place], [place] [address]Ohcjojvvod (Bld) [Mass/Vol]13.8 g/qYLdqoqh30.5-15.5CSelect [facility] on above: Order Comment: Specimen Type: BLOOD SPECIMENOrdering Facility: [facility] Address:[address] [place], [place] [address]Performed By: #### 21892- 8 ####[facility] LABCLIA [id number] [place], [place] [address]Nlmbdybj granulocytes (Bld) [#/Vol]0.23 10*3/uLHigh<0.10 [facility] on above:Order Comment: Specimen Type: BLOOD SPECIMENOrdering Facility: [facility] Address:[address] [place], [place] [address]Performed By: #### 81496-3 ####[facility] LABCLIA [id number] [place], [place] [address]Vebabiqf granulocytes/100 WBC (Bld)1.8 %[facility] on above: Order Comment: Specimen Type: BLOOD SPECIMENOrdering Facility: [facility] Address:[address] [place], [place] [address]Performed By: #### 15135- 8 ####[facility] LABCLIA [id number] [place], [place] [address]Rmapqrjhfra (Bld) [#/Vol]2.07 10*3/uLNormal1.00-4.00 [facility] on above:Order Comment: Specimen Type: BLOOD SPECIMENOrdering Facility: [facility] Address:[address] [place], [place] [address]Performed By: #### 78161-8 ####[facility] LABIA [id number] [place], [place] [address]Hymecihdyvb/100 WBC (Bld)15.8 %NormalFirelands Regional Medical Center [facility] on above:Order Comment: Specimen Type: BLOOD SPECIMENOrdering Facility: [facility] Address:[address] [place], [place] [address]Performed By: #### 89980-2 ####[facility] LABCLIA [id number] [place], [place] [address]FZD (RBC) [Entitic mass]30.2 noEwlvmi44.0-34.0[facility] on above:Order Comment: Specimen Type: BLOOD SPECIMENOrdering Facility: [facility] Address:[address] [place], [place] [address]Performed By: #### 75722-3 ####[facility] LABCLIA [id number] [place], [place] [address]ZLJG (RBC) [Mass/Vol]32.2 g/fFWpfilj87.5-36.0[facility] on above: Order Comment: Specimen Type: BLOOD SPECIMENOrdering Facility: [facility] Address:[address] [place], [place] [address]Performed By: #### 66141- 8 ####[facility] LABCLIA [id number] [place], [place] [address]CZW (RBC) [Entitic vol]93.9 aLDedgso71.0-100.0[facility] on above:Order Comment: Specimen Type: BLOOD SPECIMENOrdering Facility: [facility] Address:[address] [place], [place] [address]Performed By: #### 75999-8 ####[facility] LABCLIA [id number] [place], [place] [address]Ywngbzueh (Bld) [#/Vol]0.86 10*3/uLNormal<0.87[facility] on above:Order Comment: Specimen Type: BLOOD SPECIMENOrdering Facility: [facility] Address:[address] [place], [place] [address]Performed By: #### 47989- 8 ####[facility] LABCLIA [id number] [place], [place] [address]Shbetudso/100 WBC (Bld)6.6 %NormalFirelands Regional Medical [facility] on above:Order Comment: Specimen Type: BLOOD SPECIMENOrdering Facility: [facility] Address:[address] [place], [place] [address]Performed By: #### 03551-6 ####[facility] LABCLIA [id number] [place], [place] [address]Rggjnshjkfa (Bld) [#/Vol]9.82 10*3/uLHigh1.45-7.50[facility] on above:Order Comment: Specimen Type: BLOOD SPECIMENOrdering Facility: [facility] Address:[address] [place], [place] [address]Performed By: #### 88710-3 ####[facility] LABCLIA [id number] [place], [place] [address]Fwwzolzbxnf/100 WBC (Bld)74.7 %NormalFirelands Regional Medical Center [facility] Campus on above:Order Comment: Specimen Type: BLOOD SPECIMENOrdering Facility: [facility] Address:[address] [place], [place] [address]Performed By: #### 16684-0 ####[facility] LABIA [id number] [place], [place] [address]Ljeluvfhq RBC (Bld) [#/Vol] 10*3/uLNormal<0.01[facility] on above:Order Comment: Specimen Type: BLOOD SPECIMENOrdering Facility: [facility] Address:[address] [place], [place] [address]Performed By: #### 68465-7 ####[facility] LABIA [id number] [place], [place] [address]Wseaqfxdv RBC/100 WBC (Bld) [Ratio]0.0 /100 WBCNormal [facility] on above:Order Comment: Specimen Type: BLOOD SPECIMENOrdering Facility: [facility] Address:[address] [place], [place] [address]Performed By: #### 04252-2 ####[facility] LABCLIA [id number] [place], [place] [address]Bbaevlut mean volume (Bld) [Entitic vol]9.5 fLNormal9.0-12.7CSelect [facility] on above:Order Comment: Specimen Type: BLOOD SPECIMENOrdering Facility: [facility] Address:[address] [place] [address] Performed By: #### 63368-1 ####[facility] LABCLIA [id number] [place], [place] [address]Hefwrlgjc (Bld) [#/Vol]291 10*3/yNZlbbwv116-638GzijjyxshFirelands Regional Medical Center [facility] on above:Order Comment: Specimen Type: BLOOD SPECIMENOrdering Facility: [facility] Address:[address] [place], [place] [address]Performed By: #### 75880-9 ####[facility] LABCLIA [id number] [place], [place] [address]MBT (Bld) [#/Vol]4.57 10*6/uLNormal3.90-5.20[facility] on above:Order Comment: Specimen Type: BLOOD SPECIMENOrdering Facility: [facility] Address:[address] [place], [place] [address]Performed By: #### 50492-4 ####[facility] LABCLIA [id number] [place], [place] [address]DAW (Bld) [#/Vol]13.12 10*3/uLHigh3.70-11.00[facility] on above: Order Comment: Specimen Type: BLOOD SPECIMENOrdering Facility: [facility] Address:[address] [place], [place] [address]Performed By: #### 47037- 8 ####[facility] LABCLIA [id number] [place], [place] [address]Swenpfqwpmymx metabolic 2000 panelon 49-38-1502Vrxjywx [Mass/Vol]4.2 g/dLNormal3.9-4.9CSelect [facility] on above:Order Comment: Specimen Type: BLOOD SPECIMENOrdering Facility: [facility] Address:[address] [place], [place] [address]Performed By: #### 16688- 8 ####[facility] LABCLIA [id number] [facility] [place], [place] [address]DGK [Catalytic activity/Vol]69 U/CZwjxok59-526CxeedxwkeFirelands Regional Medical Center [facility] on above:Order Comment: Specimen Type: BLOOD SPECIMENOrdering Facility: [facility] Address:[address] [place], [place] [address]Performed By: #### 61426-3 ####[facility] LABCLIA [id number] [place], [place] [address]KIS [Catalytic activity/Vol]38 U/LNormal7-38[facility] on above:Order Comment: Specimen Type: BLOOD SPECIMENOrdering Facility: [facility] Address:[address] [place], [place] [address]Performed By: #### 81620- 8 ####[facility] LABCLIA [id number] [place], [place] [address]Wmfpz gap [Moles/Vol]12 mmol/LNormal8-15[facility] on above:Order Comment: Specimen Type: BLOOD SPECIMENOrdering Facility: [facility] Address:[address] [place], [place] [address]Performed By: #### 31277-7 ####[facility] LABCLIA [id number] [place], [place] [address]STA [Catalytic activity/Vol]15 U/HUujlxa03-44ObcvveqkaFirelands Regional Medical [facility] on above:Order Comment: Specimen Type: BLOOD SPECIMENOrdering Facility: [facility] Address:[address] [place], [place] [address]Performed By: #### 32271-0 ####[facility] LABCLIA [id number] [facility] [place] [place] [address] Bilirubin [Mass/Vol]0.2 mg/dLNormal0.2-1.3C[facility] on above:Order Comment: Specimen Type: BLOOD SPECIMENOrdering Facility: [facility] Address:[address] [place], [place] [address]Performed By: #### 67558-7 ####[facility] LABCLIA [id number] [facility] [place], [place] [address]Shykdqy [Mass/Vol]10.3 mg/dLHigh8.5-10.2C[facility] on above:Order Comment: Specimen Type: BLOOD SPECIMENOrdering Facility: [facility] Address:[address] [place], [place] [address]Performed By: #### 02771-3 ####[facility] LABCLIA [id number] [facility] [place] [place], [place] [address]Rxlnjles [Moles/Vol]101 mmol/PWicnkw06-519GhdrwcvecFirelands Regional [facility] on above: Order Comment: Specimen Type: BLOOD SPECIMENOrdering Facility: [facility] Address:[address] [place], [place] [address]Performed By: #### 51780- 8 ####[facility] LABCLIA [id number] [facility] DRIVERDIGN[facility]TY HOSPITALCAYDENS[place], [place] [address]QW8 [Moles/Vol]26 mmol/PLzikff91-31LtsomwclxFirelands Regional [facility] on above:Order Comment: Specimen Type: BLOOD SPECIMENOrdering Facility: [facility] Address:[address] [place], [place] [address]Performed By: #### 26921-2 ####[facility] LABIA [id number] [facility]IOMAGGYDIGN[facility] HOS[place]CAYD[place], [place] [address]Emaevlkoec [Mass/Vol]0.64 mg/dL Normal0.58-0.96[facility] on above:Order Comment: Specimen Type: BLOOD SPECIMENOrdering Facility: [facility] Address:[address] [place] [address]Jxxdhjxjl By: #### 24562-0 ####[facility] LABCLIA [id number] [place], [place] [address]Murvirofsw and Glomerular filtration rate.predicted panel (S/P/Bld)113 mL/min/1.73m???Normal>=60[facility] on above:Order Comment: Specimen Type: BLOOD SPECIMENOrdering Facility: [facility] Address:[address] [place] [address]Vdwvco Comment: Estimated Glomerular Filtration Rate (eGFR) is [...] not accurately reflect actual GFR.Performed By: #### 90623-4 ####[facility] LABCLIA [id number] [place], [place] [address]Xfpuujj [Mass/Vol]139 mg/rNBllh62-60WbghfbbrrFirelands Regional [facility] on above:Order Comment: Specimen Type: BLOOD SPECIMENOrdering Facility: [facility] Address:[address] [place] [address]Fcxaht Comment: The [place] Diabetes Association (ADA) provides guidance for cutoff [...] Standards of Medical Care in Diabetes 2016, [place] [employer] Association. Diabetes Care. 2016.39(Suppl 1).Performed By: #### 78064-0 ####[facility] LABCLIA [id number] [place], [place] [address]Tqjnjljrr [Moles/Vol]4.4 mmol/LNormal3.7-5.1C[facility] on above:Order Comment: Specimen Type: BLOOD SPECIMENOrdering Facility: [facility] Address:[address] [place], [place] [address]Performed By: #### 72567-5 ####[facility] LABCLIA [id number] [place], [place] [address]Reyrbfz [Mass/Vol]7.1 g/dLNormal6.3-8.0[facility] on above:Order Comment: Specimen Type: BLOOD SPECIMENOrdering Facility: [facility] Address:[address] [place], [place] [address]Performed By: #### 14264- 8 ####[facility] LABCLIA [id number] [place], [place] [address]Vawjcq [Moles/Vol]139 mmol/LVuzjkk513-858YgetfqrzzFirelands [facility] on above:Order Comment: Specimen Type: BLOOD SPECIMENOrdering Facility: [facility] Address:[address] [place], [place] [address]Performed By: #### 49331-6 ####[facility] LABCLIA [id number] [place], [place] [address]Vnfu nitrogen [Mass/Vol]18 mg/dLNormal7-21[facility] on above:Order Comment: Specimen Type: BLOOD SPECIMENOrdering Facility: [facility] Address:[address] [place], [place] [address]Performed By: #### 07651-1 ####[facility] LABIA [id number] [place], [place] [address]Elecapdx SerPl-ncon 14-11-9959Mljmhkcp [Mass/Vol]43.1 ng/bOGmilrw38.7-205.1C[facility] on above:Order Comment: Specimen Type: BLOOD SPECIMENOrdering Facility: [facility] Address:[address] [place], [place] [address]Performed By: #### 2132-9, 2284-8, 2276-4, 38347-4 ####[facility] LABCLIA [id number] [facility] [id number] [place] [address] [place] OF AMERICAFolate SerPl-mCncon 61-14-1634Tiwupu [Mass/Vol]ng/mLNormal>4.7C[facility] on above:Order Comment: Specimen Type: BLOOD SPECIMENOrdering Facility: [facility] Address:[address] [place], [place] [address]Result Comment: A result of > 20 ng/mL is not necessarily indicative of a pathologic or treatable condition: it reflects a limitation of the test methodology.Assay reference range: 4.8 to 24.2 ng/mL. Suitable for detection of folate deficiency.Reference:Folate III (Folate III) [package insert V 1.0 Burmese]. [facility], [place], [place]: March 2015.Performed By: #### 2132-9, 2284-8, 2276-4, 18736-9 ####[facility] LABCLIA [id number] [place] [address] [place] OF AMERICAIgG SerPl-mCnc on 21-47-6948QjS [Mass/Vol]729 mg/cNMgvwxp122-1201MyimxxpilFayette County Memorial Hospital Comment on above:Order Comment: Specimen Type: BLOOD SPECIMENOrdering Facility: [facility] Address:[address] [place] [address] Performed By: #### 2465-3 ####[facility] LABIA [id number] [place] [id number] [place] [employer] binding capacity panelon 87-14-6823Vsgn [Mass/Vol]80 ug/dLNormal 41-186[facility] on above:Order Comment: Specimen Type: BLOOD SPECIMENOrdering Facility: [facility] Address:[address] [place] [address]Yikctdtay By: #### 2132-9, 2284-8, 2276-4, 64553-1 ####[facility] LABCLIA [id number] [place] [address] [place] OF AMERICAIron binding capacity [Mass/Vol] 416 ug/bQUxkm205-758CcebvnhzbFirelands [facility] on above:Order Comment: Specimen Type: BLOOD SPECIMENOrdering Facility: [facility] Address:[address] [place], [place] [address]Performed By: #### 2132-9, 2284-8, 2276-4, 41304-1 ####[facility] LABCLIA [id number] [place] [address] [place] AMERICAIron/TIBC [Molar ratio]19.2 %Jtuhwu05.0-57.0[facility] on above:Order Comment: Specimen Type: BLOOD SPECIMENOrdering Facility: [facility] Address:[address] [place], [place] [address]Performed By: #### 2132- 9, 2284-8, 2276-4, 02482-3 ####[facility] LABCLIA [id number] [place] [address] [place] AMERICAVit B12 SerPl-mCncon 79-94-8810Wzvfngwmb (Vitamin B12) [Mass/Vol]555 pg/yWPwexkx472-1979 [facility] on above:Order Comment: Specimen Type: BLOOD SPECIMENOrdering Facility: [facility] Address:[address] [place], [place] [address]Performed By: #### 2132-9, 2284-8, 2276-4, 68074-7 ####[facility] LABCLIA [id number] [place] [address] [place] AMERICACNPNon 30-69-2433TAPFLttsjb [facility] Thyroid glandon 05-25-1313[address] [place] [address] Ultrasound Report Signed Patient: ARIADNA HALEY MR#: [id number] : 1980 Acct:[id number] Age/Sex: 43 / F ADM Date: 08/24/24 Loc: US Attending Dr: Gordo Barfield M.D. Ordering Physician: Gordo Barfield M.D. Date of Service: 08/24/24 Procedure(s): US thyroid Accession Number(s): [id number] cc: GAY DE LA TORRE ; Gordo Barfield M.D. [place] [id number] Patient Name: ARIADNA HALEY MRN: [id number] date: 1980 Sex: F Assigned Patient Location: US Current Patient Location: US Accession/Order Number: [id number] Exam Date: 08/24/2024 09:09 Report Date: 08/24/2024 [...] this was thought to be cystic. The asset protection representative today considered it solid and it was given TI-RADS 4 classification. No internal color flow is shown. Size has not significantly changed when measuring in a comparable manner. No other nodularity is seen. US/US thyroid IMPRESSION: SIMILAR SMALL LEFT THYROID NODULE. FOLLOW-UP IN ONE YEAR IS SUGGESTED. Impression dictated by: Simin Nelson M.D.08/24/2024 9:22 AM Dictation Location: [place] [address] Electronically authenticated by: [id number] Y Date: 08/24/2024 09:22 Dictated By: Simin Nelson M.D. Signed By: 08/24/24923 DD/ 1 TD/TT: Salesforce Specialist:DARLENEHRadiology, Radiologist, - 08/24/[address] [address] Ultrasound Report Signed Patient: ARIADNA HALEY MR#: [id number] : 1980 Acct:[id number] Age/Sex: 43 / F ADM Date: 08/24/24 Loc: US Attending Dr: Gordo Barfield M.D. Ordering Physician: Gordo Barfield M.D. Date of Service: 08/24/24 Procedure(s): US thyroid Accession Number(s): [id number] cc: GAY DE LA TORRE ; Gordo Barfield M.D. The [address] [id number] Patient Name: ARIADNA HALEY MRN: [id number] date: 1980 Sex: F Assigned Patient Location: US Current Patient Location: US Accession/Order Number: [id number] Exam Date: 08/24/2024 09:09 Report Date: 08/24/2024 [...] this was thought to be cystic. The asset protection representative today considered it solid and it was given TI-RADS 4 classification. No internal color flow is shown. Size has not significantly changed when measuring in a comparable manner. No other nodularity is seen. US/US thyroid IMPRESSION: SIMILAR SMALL LEFT THYROID NODULE. FOLLOW-UP IN ONE YEAR IS SUGGESTED. Impression dictated by: Simin Nelson M.D.08/24/2024 9:22 AM Dictation Location: [place] [address] Electronically authenticated by: [id number] Y Date: 08/24/2024 09:22 Dictated By: Simin Nelson M.D. Signed By: 08/24/24923 DD/ 1 TD/TT: Salesforce Specialist: MABLE GlezRadiology Study observation (narrative)MABLE GlezUS Thyroid glandOrdered By: Radiologist Radiology on 83-82-3860DHKL [employer] Work Phone: cNPNon 98-90-9060EOXEDsmungEyjgcqibfLicking Memorial Hospital HCG ( test) [place].rapid Ql (U)Ordered By: Adolfo Kang on 79-72-4756DVP ( test) Ql (U)Urine human chorionic gonadotropin (hCG) detection by immunoassayMetrohealth Parma Medical CenterHCG,Urineon 83-20-3447Igey HCG ( test) Ql (U)NegativeNoPerson Memorial Hospital Physician GroupComment on above:Result Comment: PERFORMED BY: [place] [address] PATHOLOGIST RETIREMENT PLAN SPECIALIST HAYDEN LLAMAS M.D.Performed By: #### UHCG #### [place] [address] USACNOVon 63-86-1308KQNJJpvdcoPhhmbwxhj Clinic ClevelandCNPN on 64-25-2488DIXVNgkiwbPtktioycn Clinic Qydoleanb45([place])D3 SerPl-ncon 454214-yklhbbudslexvg D3 [Mass/Vol]28.5 ng/mLLow31.0-80.0[facility] County Memorial HospitalComment on above:Order Comment: Specimen Type: BLOOD SPECIMENOrdering Facility: [facility] Address:[address] [place] [address]Ccxxhz Comment: Classification of 25 [place] Vitamin D status:Deficiency/Insufficiency: < or = 30 ng/ml.Sufficiency/Optimal Levels: 31- 80 ng/mLToxicity: > 100 ng/mL.Test performed by chemiluminescent immunoassay. Performed By: #### 1989-3 ####[facility] LABCLIA [id number] [facility] CENTERTALQDKDVVSW01NBOCTMPQN, [place] [address] [place] CBC panel Auto (Bld)on 10-25-8529Qskuboifuyy distribution width (RBC) [Ratio] 14.3 %Janxvh89.5-15.0[facility] on above:Order Comment: Specimen Type: BLOOD SPECIMENOrdering Facility: [facility] Address:[address] [place], [place] [address]Performed By: #### 43329-4 ####[facility] HOSPITALAnahi [facility] LABIA [id number] [place] [id number] [place] [facility]ONESS HOSPITALHematocrit (Bld) [Volume fraction]41.3 %Ktzedv73.0-46.0 [facility] on above:Order Comment: Specimen Type: BLOOD SPECIMENOrdering Facility: [facility] Address:[address] [place], [place] [address]Performed By: #### 45833-4 ####[facility]OSPITALAnahi [facility] HOSPITALIA [id number] [place] [id number] [place] [facility]ACONESS HOSPITALHemoglobin (Bld) [Mass/Vol]13.5 g/yMMdzcjb66.5-15.5C[facility] on above:Order Comment: Specimen Type: BLOOD SPECIMENOrdering Facility: [facility] Address:[address] [place], [place] [address]Performed By: #### 85129-6 ####[facility]PITALAnahi [facility] LABIA [id number] [place] [address] [place] AMERICAMCH (RBC) [Entitic mass]30.4 ctIehysk80.0-34.0[facility] on above:Order Comment: Specimen Type: BLOOD SPECIMENOrdering Facility: [facility] Address:[address] [place], [place] [address]Performed By: #### 34176-8 ####[facility]PITALAnahi [facility] LABIA [id number] [place] [id number] [place], [place] [address]MCHC (RBC) [Mass/Vol]32.7 g/qEUfqwku31.5-36.0[facility] on above: Order Comment: Specimen Type: BLOOD SPECIMENOrdering Facility: [facility] Address:[address] [place], [place] [address]Performed By: #### 48736- 2 ####[facility] LABIA [id number] [place] [id number] [facility] HOSPITALMCV (RBC) [Entitic vol]93.0 zJBiihbu93.0-100.0[facility] on above:Order Comment: Specimen Type: BLOOD SPECIMENOrdering Facility: [facility] Address:[address] [place], [place] [address]Performed By: #### 51845-6 ####[facility]PITALAnahi [facility] HOSPITALIA [id number] [place] [id number] [facility] SYSTEMucleated RBC (Bld) [#/Vol]10*3/uL Normal<0.01[facility] on above:Order Comment: Specimen Type: BLOOD SPECIMENOrdering Facility: [facility] Address:[address] [place], [place] [address]Performed By: #### 04614-2 ####AMHABDIAnahi [facility] LABIA [id number] [place] [id number] [place] [facility] Platelet mean volume (Bld) [Entitic vol]9.8 fLNormal9.0-12.7CSelect [facility] on above:Order Comment: Specimen Type: BLOOD SPECIMENOrdering Facility: [facility] Address:[address] [place], [place] [address]Performed By: #### [id number] ####AMHERST [facility] LABIA [id number] [place] [id number] [facility] HOSPITALPlatelets (Bld) [#/Vol]341 10*3/uL [id number] [facility] on above:Order Comment: Specimen Type: BLOOD SPECIMENOrdering Facility: [facility] Address:[address] [place], [place] [address]Performed By: #### 31146-4 ####[facility] LABIA [id number] [place] [address] [facility] HOSPITALRB (Bld) [#/Vol]4.44 10*6/uLNormal3.90-5.20[facility] HospitalCommcl[facility] [place] on above:Order Comment: Specimen Type: BLOOD SPECIMENOrdering Facility: [facility] Address:[address] [place], [place] [address]Performed By: #### 14386-2 ####[facility]PITAL[facility] [id number] [place] [id number] [facility]OSPITALW (Bld) [#/Vol]12.66 10*3/uLHigh3.70-11.00[facility] on above:Order Comment: Specimen Type: BLOOD SPECIMENOrdering Facility: [facility] Address:[address] [place], [place] [address]Performed By: #### [id number] ####[facility] LABIA [id number] [place] [place] [id number] [facility]PITALCRP SerPl-mCncon 27-50-9078VNM [Mass/Vol]0.1 mg/dLNormal<0.9ClevelHighland District Hospital on above:Order Comment: Specimen Type: BLOOD SPECIMENOrdering Facility: [facility] Address:[address] [place], [place] [address]Performed By: #### 36941-8, 1987-09 ####[facility] LABIA [id number] [place] [id number] [facility] AMERICAComprehensive metabolic 2000 panelon 49-15-7236Dppjxod [Mass/Vol]4.0 g/dLNormal3.9-4.9CSelect [facility] on above:Order Comment: Specimen Type: BLOOD SPECIMENOrdering Facility: [facility] Address:[address] [place], [place] [address]Performed By: #### 13249-8, 1987-09 ####[facility] LABCLIA [id number] [place] [address] [place] AMERICAALP [Catalytic activity/Vol]52 U/TYnhpsl96-126AeonvqeudFirelands Regional [facility] on above:Order Comment: Specimen Type: BLOOD SPECIMENOrdering Facility: [facility] Address:[address] [place] [address] [place], [place] [address]Performed By: #### 94595- 8, 1987-09 ####[facility] LABCLIA [id number] [place] [address] [place] AMERICAALT [Catalytic activity/Vol]26 U/LNormal7-38[facility] on above:Order Comment: Specimen Type: BLOOD SPECIMENOrdering Facility: [facility] Address:[address] [place], [place] [address]Performed By: #### 24780-1, 1987-09 ####[facility] LABCLIA [id number] [place] [address] [place] AMERICAAnion gap [Moles/Vol]10 mmol/LNormal8-15[facility] on above:Order Comment: Specimen Type: BLOOD SPECIMENOrdering Facility: [facility] Address:[address] [place], [place] [address]Performed By: #### 29052- 8, 1987-09 ####[facility] LABCLIA [id number] [place] [address] [place] AMERICAAST [Catalytic activity/Vol]12 U/KJai87-79CrdrumbtiFirelands Regional Medical Center South [facility] on above:Order Comment: Specimen Type: BLOOD SPECIMENOrdering Facility: [facility] Address:[facility] [place], [place] [address]Performed By: #### 98738-3, 1987-09 ####[facility] LABCLIA [id number] [place] [address] [place] AMERICABilirubin [Mass/Vol]0.3 mg/dLNormal0.2-1.3[facility] ClevelandComment on above:Order Comment: Specimen Type: BLOOD SPECIMENOrdering Facility: [facility] Address:[address] [place], [place] [address]Performed By: #### 19434- 8, 1987-09 ####[facility] LABCLIA [id number] [place] [address] [place] AMERICACalcium [Mass/Vol]9.5 mg/dLNormal8.5-10.2CSelect [facility] on above:Order Comment: Specimen Type: BLOOD SPECIMENOrdering Facility: [facility] Address:[address] [place], [place] [address]Performed By: #### 45609-3, 1987-09 ####[facility] LABCLIA [id number] [place] [address] [place] AMERICAChloride [Moles/Vol]103 mmol/WZpihxf61-082DtszdqnjuFirelands Regional Medical Center [facility] on above: Order Comment: Specimen Type: BLOOD SPECIMENOrdering Facility: [facility] Address:[address] [place], [place] [address]Performed By: #### 42805- 8, 1987-09 ####[facility] LABCLIA [id number] [place] [address] [place] AMERICACO2 [Moles/Vol]27 mmol/ZWwoyhy18-71LzfvueyccFirelands Regional [facility] on above:Order Comment: Specimen Type: BLOOD SPECIMENOrdering Facility: [facility] Address:[address] [place], [place] [address]Performed By: #### 90923-7, 1987-09 ####[facility] LABCLIA [id number] [place] [address] [place] AMERICACreatinine [Mass/Vol]0.78 mg/dLNormal0.58-0.96[facility] on above:Order Comment: Specimen Type: BLOOD SPECIMENOrdering Facility: [facility] Address:[address] [place], [place] [address]Performed By: #### 88681-4, 1987-09 ####[facility] LABIA [id number] [place] [address]24[address] [place] AMERICACreatinine and Glomerular filtration rate.predicted panel (S/P/Bld)97 mL/min/1.73m???Normal>=60F[facility] County Memorial HospitalComment on above: Order Comment: Specimen Type: BLOOD SPECIMENOrdering Facility: [facility] Address:[address] [place], [place] [address]Result Comment: Estimated Glomerular Filtration Rate (eGFR) is [...] not accurately reflect actual GFR.Performed By: #### 47283-7, 1987-09 ####[facility]ERT [facility]ITALIA [id number] [place] [address] [place] AMERICAGlucose [Mass/Vol]116 mg/fFFgov74-99SzbaiclwlFayette County Memorial Hospital Comment on above:Order Comment: Specimen Type: BLOOD SPECIMENOrdering Facility: [facility] Address:[address] [place] [address] Comment: The [place] Diabetes Association (ADA) provides guidance for cutoff [...] Standards of Medical Care in Diabetes 2016, [employer] Diabetes Association. Diabetes Care. 2016.39(Suppl 1).Performed By: #### 64802-5, 1987-09 ####[facility] LABIA [id number] [place] [address] [place] AMERICAPotassium [Moles/Vol]3.8 mmol/LNormal3.7-5.1C[facility] on above: Order Comment: Specimen Type: BLOOD SPECIMENOrdering Facility: [facility] Address:[address] [place], [place] [address]Performed By: #### 50891- 8, 1987-09 ####[facility] LABCLIA [id number] [place] [address] [place] AMERICAProtein [Mass/Vol]7.6 g/dLNormal6.3-8.0[facility] on above:Order Comment: Specimen Type: BLOOD SPECIMENOrdering Facility: [facility] Address:[address] [place], [place] [address]Performed By: #### 56845-3, 1987-09 ####[facility] LABIA [id number] [place] [address] [place] OF AMERICASodium [Moles/Vol]140 mmol/TOwzeuq719-624HwgdhgsbvFirelands Regional Medical Center [facility] on above:Order Comment: Specimen Type: BLOOD SPECIMENOrdering Facility: [facility] Address:[address] [place], [place] [address]Performed By: #### 78163-1, 1987-09 ####[facility] LABIA [id number] [place] [address] [place] AMERICAUrea nitrogen [Mass/Vol]18 mg/dLNormal7-21[facility] on above:Order Comment: Specimen Type: BLOOD SPECIMENOrdering Facility: [facility] Address:[address] [place], [place] [address]Performed By: #### 14342-2, 1987-09 ####[facility] LABIA [id number] [place] [address] [place] AMERICAESR Westergren method (Bld) [Velocity]on 08-49-5141INW (Bld) [Velocity]28 mm/hHigh0-20[facility] ClevelandComment on above:Order Comment: Specimen Type: BLOOD SPECIMENOrdering Facility: [facility] Address:[address] [place], [place] [address]Performed By: #### 4537-7 ####[facility] LABCLIA [id number] [place] [address] [place] CNPNon 37-35-6916AMIQUjxmvzTtsowvherSt. Anthony's Hospital HEALTHon 06-13-2024 ALLIED HEALTHNormalCMetroHealth [facility] W Auto Differential panel (Bld) on 80-65-7099Hdawbflft (Bld) [#/Vol]0.10 10*3/uLNINFChillicothe Va Medical Center Basophils/100 WBC (Bld)0.7 %[facility] Medical CenterDifferential cell count method Nom (Bld)AutoCleveland ClinicEosinophils (Bld) [#/Vol]0.15 10*3/uLNINFChillicothe Va Medical CenterEosinophils/100 WBC (Bld)1.1 %[facility] Medical CenterErythrocyte distribution width (RBC) [Ratio]14.2 %11.5 - 15.0 %[facility] Medical CenterHematocrit (Bld) [Volume fraction]39.0 %36.0 - 46.0 %[facility] Medical CenterHemoglobin (Bld) [Mass/Vol]13.0 g/dL 11.5 - 15.5 g/dLChillicothe Va Medical CenterImmature granulocytes (Bld) [#/Vol]0.21 10*3/uL HighNINFChillicothe Va Medical CenterImmature granulocytes/100 WBC (Bld)1.5 %[facility] Interpretation and review of laboratory resultsAbnormalCSt. Mary's Medical Center Lymphocytes (Bld) [#/Vol]2.16 10*3/uLChillicothe Va Medical CenterLymphocytes/100 WBC (Bld) 15.4 %[facility] Medical CenterMCH (RBC) [Entitic mass]30.5 pg26.0 - 34.0 pgClevelTwin City HospitalMCHC (RBC) [Mass/Vol]33.3 g/dL30.5 - 36.0 g/dLKettering HealthV (RBC) [Entitic vol]91.5 fL80.0 - 100.0 fLCleveland ClinicMonocytes (Bld) [#/Vol]0.79 10*3/uLNINFChillicothe Va Medical CenterMonocytes/100 WBC (Bld)5.6 %[facility] Neutrophils (Bld) [#/Vol]10.59 10*3/uLKeenan Private HospitalNeutrophils/100 WBC (Bld)75.7 %[facility] Medical CenterNucleated RBC (Bld) [#/Vol]NINFCSt. Mary's Medical Center Nucleated RBC/100 WBC (Bld) [Ratio]0.0 %/100 WBCChillicothe Va Medical CenterPlatelet mean volume (Bld) [Entitic vol]9.9 fL9.0 - 12.7 fLCSt. Mary's Medical CenterPlatelets (Bld) [#/Vol]327 10*3/uLChillicothe Va Medical CenterRBC (Bld) [#/Vol]4.26 10*6/uL3.90 - 5.20 m/uL [facility] Medical CenterWBC (Bld) [#/Vol]14.00 10*3/uLSalem City Hospital ClinicBasophils (Bld) [#/Vol]0.10 10*3/uLNormal<0.11CDayton Children's Hospital Comment on above:Order Comment: Specimen Type: BLOOD SPECIMENOrdering Facility: [facility] Address:[address] [place] [address] Performed By: #### 05778-5 ####[facility] LABIA [id number] [place], [place] [address]Oiitcxgre/100 WBC (Bld)0.7 % NormalFayette County Memorial HospitalComment on above:Order Comment: Specimen Type: BLOOD SPECIMENOrdering Facility: [facility] Address:[address] [place], [place] [address]Performed By: #### 97641-9 ####[facility] LABIA [id number] [place] [address] Differential cell count method Nom (Bld)AutoNormalCDayton Children's Hospital Comment on above:Order Comment: Specimen Type: BLOOD SPECIMENOrdering Facility: [facility] Address:[address] [place] [address] Performed By: #### 76636-2 ####[facility] LABCLIA [id number] [place], [place] [address]Pxhkznrapdr (Bld) [#/Vol]0.15 10*3/uLNormal<0.46[facility] on above:Order Comment: Specimen Type: BLOOD SPECIMENOrdering Facility: [facility] Address:[address] [place], [place] [address]Performed By: #### 85224-4 ####[facility] LABCLIA [id number] [place], [place] [address]Osfyhvwmask/100 WBC (Bld)1.1 %NormalFirelands Regional Medical Center South Campus on above:Order Comment: Specimen Type: BLOOD SPECIMENOrdering Facility: [facility] Address:[address] [place], [place] [address]Performed By: #### 37925-1 ####[facility] LABIA [id number] [place], [place] [address]Gvjfnnypdjv distribution width (RBC) [Ratio]14.2 %Eheguv66.5-15.0[facility] on above: Order Comment: Specimen Type: BLOOD SPECIMENOrdering Facility: [facility] Address:[address] [place], [place] [address]Performed By: #### 82569- 8 ####[facility] LABCLIA [id number] [place], [place] [address]Epviehtosp (Bld) [Volume fraction]39.0 %Tnqkzh08.0-46.0 [facility] on above:Order Comment: Specimen Type: BLOOD SPECIMENOrdering Facility: [facility] Address:[address] [place], [place] [address]Performed By: #### 37161-2 ####[facility] LABIA [id number] [place], [place] [address]Omububupig (Bld) [Mass/Vol]13.0 g/yUFhdtfl67.5-15.5CSelect Medical [facility]ty [facility] on above: Order Comment: Specimen Type: BLOOD SPECIMENOrdering Facility: [facility] Address:[address] [place], [place] [address]Performed By: #### 97324- 8 ####[facility] LABCLIA [id number] [place], [place] [address]Vfkkhenc granulocytes (Bld) [#/Vol]0.21 10*3/uLHigh<0.10 [facility] on above:Order Comment: Specimen Type: BLOOD SPECIMENOrdering Facility: [facility] Address:[address] [place], [place] [address]Performed By: #### 81342-4 ####[facility] LABCLIA [id number] [place], [place] [address]Blavpbiv granulocytes/100 WBC (Bld)1.5 %NormalFirelands Regional Medical Center South Campus on above: Order Comment: Specimen Type: BLOOD SPECIMENOrdering Facility: [facility] Address:[address] [place], [place] [address]Performed By: #### 74280- 8 ####[facility] LABCLIA [id number] [place], [place] [address]Prsdaionskp (Bld) [#/Vol]2.16 10*3/uLNormal1.00-4.00 [facility] on above:Order Comment: Specimen Type: BLOOD SPECIMENOrdering Facility: [facility] Address:[address] [place], [place] [address]Performed By: #### 45565-2 ####[facility] LABCLIA [id number] [place], [place] [address]Mpqdtizijoy/100 WBC (Bld)15.4 %[facility] on above:Order Comment: Specimen Type: BLOOD SPECIMENOrdering Facility: [facility] Address:[address] [place], [place] [address]Performed By: #### 74735-5 ####[facility] LABCLIA [id number] [place], [place] [address]WPD (RBC) [Entitic mass]30.5 qoTihmmw41.0-34.0[facility] on above:Order Comment: Specimen Type: BLOOD SPECIMENOrdering Facility: [facility] Address:[address] [place], [place] [address]Performed By: #### 18298-1 ####[facility] LABCLIA [id number] [place], [place] [address]ECCY (RBC) [Mass/Vol]33.3 g/fUJuseuz26.5-36.0[facility] on above: Order Comment: Specimen Type: BLOOD SPECIMENOrdering Facility: [facility] Address:[address] [place], [place] [address]Performed By: #### 77296- 8 ####[facility] LABCLIA [id number] [place], [place] [address]PUV (RBC) [Entitic vol]91.5 tARkouud54.0-100.0[facility] on above:Order Comment: Specimen Type: BLOOD SPECIMENOrdering Facility: [facility] Address:[address] [place], [place] [address]Performed By: #### 90491-3 ####[facility] LABCLIA [id number] [place], [place] [address]Syqwwjsuj (Bld) [#/Vol]0.79 10*3/uLNormal<0.87[facility] on above:Order Comment: Specimen Type: BLOOD SPECIMENOrdering Facility: [facility] Address:[address] [place], [place] [address]Performed By: #### 27431- 8 ####[facility] LABCLIA [id number] [place], [place] [address]Hfitgaunx/100 WBC (Bld)5.6 %NormalFirelands Regional Medical Center South Campus on above:Order Comment: Specimen Type: BLOOD SPECIMENOrdering Facility: [facility] Address:[address] [place], [place] [address]Performed By: #### 28893-5 ####[facility] LABCLIA [id number] [place], [place] [address]Qvwqgdzlhbe (Bld) [#/Vol]10.59 10*3/uLHigh1.45-7.50[facility] on above:Order Comment: Specimen Type: BLOOD SPECIMENOrdering Facility: [facility] Address:[address] [place], [place] [address]Performed By: #### 18282-8 ####[facility] LABCLIA [id number] [place], [place] [address]Xyaxlnvrpxw/100 WBC (Bld)75.7 %NormalFirelands Regional Medical Center South Campus on above:Order Comment: Specimen Type: BLOOD SPECIMENOrdering Facility: [facility] Address:[address] [place], [place] [address]Performed By: #### 65898-8 ####[facility] LABCLIA [id number] [place], [place] [address]Rwgtibeia RBC (Bld) [#/Vol] 10*3/uLNormal<0.01[facility] on above:Order Comment: Specimen Type: BLOOD SPECIMENOrdering Facility: [facility] Address:[address] [place], [place] [address]Performed By: #### 62757-1 ####[facility] LABCLIA [id number] [place], [place] [address]Aosblbxsw RBC/100 WBC (Bld) [Ratio]0.0 /100 WBCNormal [facility] on above:Order Comment: Specimen Type: BLOOD SPECIMENOrdering Facility: [facility] Address:[address] [place], [place] [address]Performed By: #### 84150-9 ####[facility] LABCLIA [id number] [place], [place] [address]Cvqnkkno mean volume (Bld) [Entitic vol]9.9 fLNormal9.0-12.7CSelect [facility] on above:Order Comment: Specimen Type: BLOOD SPECIMENOrdering Facility: [facility] Address:[address] [place] [address] Performed By: #### 68122-2 ####[facility] LABCLIA [id number] [place], [place] [address]Xninllfam (Bld) [#/Vol]327 10*3/vASqjwhz632-474IyrfujsoeFirelands Regional Medical Center [facility] on above:Order Comment: Specimen Type: BLOOD SPECIMENOrdering Facility: [facility] Address:[address] [place], [place] [address]Performed By: #### 77933-1 ####[facility] LABCLIA [id number] [place], [place] [address]DMU (Bld) [#/Vol]4.26 10*6/uLNormal3.90-5.20[facility] on above:Order Comment: Specimen Type: BLOOD SPECIMENOrdering Facility: [facility] Address:[address] [place], [place] [address]Performed By: #### 86796-3 ####[facility] LABCLIA [id number] [place], [place] [address]QQC (Bld) [#/Vol]14.00 10*3/uLHigh3.70-11.00[facility] on above: Order Comment: Specimen Type: BLOOD SPECIMENOrdering Facility: [facility] Address:[address] [place], [place] [address]Performed By: #### 14622- 8 ####[facility] LABCLIA [id number] [place], [place] [address]REYJRZtg 19-39-7622WVBVIRWutiybYkccsglynRyan Ville [address] panelOrdered By: Josse Merlos on 61-86-3549Jtqgepa [Mass/Vol]3.9 g/dL3.9 - 4.9 g/dLChicago ClinicALP [Catalytic activity/Vol]73 U/L34 - 123 U/LCleveland ClinicALT [Catalytic activity/Vol]24 U/L7 - 38 U/L Chicago ClinicAnion gap [Moles/Vol]15 mmol/L8 - 15 mmol/LCleveland ClinicAST [Catalytic activity/Vol]12 U/LLow13 - 35 U/LCleveland ClinicBilirubin [Mass/Vol] mg/dLLow0.2 - 1.3 mg/dLChicago ClinicCalcium [Mass/Vol]9.2 mg/dL8.5 - 10.2 mg/dLChicago ClinicChloride [Moles/Vol]104 mmol/L98 - 107 mmol/LCleveland ClinicCO2 [Moles/Vol]19 mmol/LLow22 - 30 mmol/LCleveland ClinicCreatinine [Mass/Vol]0.58 mg/dL0.58 - 0.96 mg/dLChicago ClinicGFR/1.73 sq M.predicted among non-blacks MDRD (S/P/Bld) [Vol rate/Area]115 mL/min/{1.73_m2}- PINF [facility]icothe Va Medical CenterComment on above:Estimated Glomerular Filtration Rate (eGFR) is calculated using the 2020 CKD-EPI creatinine equation. This equation utilizes serum creatinine, sex, and age as parameters. The creatinine assay has traceable calibration to isotope dilution-mass spectrometry. Refer to KDIGO guidelines for clinical interpretation. In patients with unstable renal function, e.g. those with acute kidney injury, the eGFRmay not accurately reflect actual GFR.Glucose [Mass/Vol]163 mg/sRUhxv29 - 99 mg/dLChillicothe Va Medical CenterComment on above:The [place] Diabetes Association (ADA) provides guidance for cutoff [...] Standards of Medical Care in Diabetes 2016, [place] Diabetes Association. Diabetes Care. 2016.39(Suppl 1). Interpretation and review of laboratory resultsAbnormalCleveland ClinicPotassium [Moles/Vol]3.9 mmol/L3.7 - 5.1 mmol/LCglenbeigh hospital ClinicProtein [Mass/Vol]6.8 g/dL 6.3 - 8.0 g/dLChicago ClinicSodium [Moles/Vol]138 mmol/L136 - 144 mmol/L [facility] Va Medical CenterUrea nitrogen [Mass/Vol]13 mg/dL7 - 21 mg/dLMercy Health St. Elizabeth Youngstown HospitalComprehensive metabolic 2000 panelon 08-05-1167Hhprhzx [Mass/Vol]3.9 g/dLNormal3.9-4.9CDayton Children's HospitalCommclaren northern [place] on above:Order Comment: Specimen Type: BLOOD SPECIMENOrdering Facility: [facility] Address:[address] [place], [place] [address]Performed By: #### 47862- 8 ####[facility] LABCLIA [id number] [place], [place] [address]JBX [Catalytic activity/Vol]73 U/EByraub12-815IzezggnjrFirelands [facility] on above:Order Comment: Specimen Type: BLOOD SPECIMENOrdering Facility: [facility] Address:[address] [place], [place] [address]Performed By: #### 41330-2 ####[facility] LABCLIA [id number] [place], [place] [address]ZYU [Catalytic activity/Vol]24 U/LNormal7-38[facility] on above:Order Comment: Specimen Type: BLOOD SPECIMENOrdering Facility: [facility] Address:[address] [place], [place] [address]Performed By: #### 24295- 8 ####[facility] LABCLIA [id number] [place], [place] [address]Ivxpw gap [Moles/Vol]15 mmol/LNormal8-15[facility] on above:Order Comment: Specimen Type: BLOOD SPECIMENOrdering Facility: [facility] Address:[address] [place], [place] [address]Performed By: #### 67308-3 ####[facility] LABCLIA [id number] [place], [place] [address]UAI [Catalytic activity/Vol]12 U/ECdx64-17YnntzluzcFirelands Regional Medical Center South Campus on above:Order Comment: Specimen Type: BLOOD SPECIMENOrdering Facility: [facility] Address:[address] [place], [place] [address]Performed By: #### 24441-8 ####[facility] LABCLIA [id number] [place] [address] Bilirubin [Mass/Vol]mg/dLLow0.2-1.3CSelect [facility] on above: Order Comment: Specimen Type: BLOOD SPECIMENOrdering Facility: [facility] Address:[address] [place], [place] [address]Performed By: #### 20505- 8 ####[facility] LABCLIA [id number] [place], [place] [address]Mhmhznk [Mass/Vol]9.2 mg/dLNormal8.5-10.2CSelect Medical [facility] on above:Order Comment: Specimen Type: BLOOD SPECIMENOrdering Facility: [facility] Address:[address] [place], [place] [address]Performed By: #### 78812-9 ####[facility] LABCLIA [id number] [place], [place] [address]Wabstpkf [Moles/Vol]104 mmol/L Nfhtmz48-555UpobtwrrbFirelands Regional Medical Center [facility] on above:Order Comment: Specimen Type: BLOOD SPECIMENOrdering Facility: [facility] Address:[address] [place], [place] [address]Performed By: #### 49171-1 ####[facility] LABCLIA [id number] [place] [address] CO2 [Moles/Vol]19 mmol/HBjj70-24ZjhdkctvtFirelands Regional [facility] on above:Order Comment: Specimen Type: BLOOD SPECIMENOrdering Facility: [facility] Address:[address] [place], [place] [address]Performed By: #### [id number]- [id number] ####[facility] LABIA [id number] [place], [place] [address]Qpzkfwuhph [Mass/Vol]0.58 mg/dLNormal0.58-0.96[facility] on above:Order Comment: Specimen Type: BLOOD SPECIMENOrdering Facility: [facility] Address:[address] [place], [place] [address]Performed By: #### 57171-3 ####[facility] [id number] [place], [place] [address]Ktmbiqbdzg and Glomerular filtration rate.predicted panel (S/P/Bld)115 mL/min/1.73m???Normal >=60[facility] on above:Order Comment: Specimen Type: BLOOD SPECIMENOrdering Facility: [facility] Address:[address] [place], [place] [address]Result Comment: Estimated Glomerular Filtration Rate (eGFR) is calculated using the 2020 CKD-EPI creatinine equation. This equation utilizes serum creatinine, sex, and age as parameters. The creatinine assay has traceable calibration to isotope dilution-mass spectrometry. Refer to KDIGO guidelines for clinical interpretation. In patients with unstable renal function, e.g. those with acute kidney injury, the eGFR may not accurately reflect actual GFR.Performed By: #### [id number] ####[facility] LABIA [id number] [place], [place] [address]Thsaysr [Mass/Vol]163 mg/yCPqml26-57NvwhlithcFirelands Regional Medical Center South [facility] on above:Order Comment: Specimen Type: BLOOD SPECIMENOrdering Facility: [facility] Address:[address] [place], [place] [address]Result Comment: The [place] Diabetes Association (ADA) provides guidance for cutoff [...] Standards of Medical Care in Diabetes 2016, [place] Diabetes Association. Diabetes Care. 2016.39(Suppl 1).Performed By: #### 93488-0 ####[facility] LABCLIA [id number] [place], [place] [address]Kttdimyhv [Moles/Vol]3.9 mmol/LNormal3.7-5.1CSelect [facility] on above: Order Comment: Specimen Type: BLOOD SPECIMENOrdering Facility: [facility] Address:[address] [place], [place] [address]Performed By: #### 75676- 8 ####[facility] LABCLIA [id number] [place], [place] [address]Wapbuad [Mass/Vol]6.8 g/dLNormal6.3-8.0[facility] on above:Order Comment: Specimen Type: BLOOD SPECIMENOrdering Facility: [facility] Address:[address] [place], [place] [address]Performed By: #### 85134-2 ####[facility] LABCLIA [id number] [place], [place] [address]Zxhjzg [Moles/Vol]138 mmol/L Efothf328-377KzhsyfchmFirelands Regional Medical Center [facility] on above:Order Comment: Specimen Type: BLOOD SPECIMENOrdering Facility: [facility] Address:[address] [place], [place] [address]Performed By: #### 55286-6 ####[facility] LABCLIA [id number] [place] [address] Urea nitrogen [Mass/Vol]13 mg/dLNormal-[facility] on above:Order Comment: Specimen Type: BLOOD SPECIMENOrdering Facility: [facility] Address:[address] [place], [place] [id number] By: #### 21295-9 ####[facility] LABCLIA [id number] [place], [place] [address]YQY Westergren method (Bld) [Velocity]on 06-13-2024 ESR (Bld) [Velocity]30 mm/OhioHealthInterpretation and review of laboratory resultsAbnormalCleveland St. Charles HospitalESR (Bld) [Velocity]30 mm/hHigh0-20[facility] on above:Order Comment: Specimen Type: BLOOD SPECIMENOrdering Facility: [facility] Address:[address] [place], [place] [address]Performed By: #### 4537-7 ####[facility] LABCLIA [id number] [place] [id number] [place] OF AMERICAFERRITINon 99-62-3751Ujcacbfj [Mass/Vol]30.9 ng/mL14.7 - 205.1 ng/mLCleveland ClinicFOLATE, SERUMon 36-21-7380Lhcnrk [Mass/Vol]19.6 ng/mL4.7 - PINF ng/mLCleveland ClinicFerritin SerPl-mCncon 28-72-5462Vxkmkftm [Mass/Vol]30.9 ng/hOCcmkou23.7-205.1ClevelHighland District Hospital on above: Order Comment: Specimen Type: BLOOD SPECIMENOrdering Facility: [facility] Address:[address] [place], [place] [address]Performed By: #### 2284- 8, 2276-4, 14757-1, 2132-9 ####[facility] LABCLIA [id number] [facility] F88QHPFKVKLV, [place] [address] [place] AMERICAFerritin [Mass/Vol]on 22-24-5070Gnjlzcudjkmpow and review of laboratory resultsNormal [facility] Medical CenterFolate SerPl-mCncon 56-08-6569Lrcarr [Mass/Vol] 19.6 ng/mLNormal>4.7CSelect [facility] on above:Order Comment: Specimen Type: BLOOD SPECIMENOrdering Facility: [facility] Address:[address] [place], [place] [address]Performed By: #### 2284-8, 2276-4, 15784-9, 2132-9 ####[facility] LABCLIA [id number] [place] [address] [place] IMMUNOGLOBULINS,IGG,IGA,IGMon 57-41-8137ByX [Mass/Vol]170 mg/rWKytdwv09-152 [facility] on above:Order Comment: Specimen Type: BLOOD SPECIMENOrdering Facility: [facility] Address:[address] [place], [place] [address]Performed By: #### SERIMM ####[facility] LABCLIA [id number] [place] [address] [place] AMERICAIgG [Mass/Vol]663 mg/bGRsu005-4003TcndbnfuyFirelands Regional [facility] on above:Order Comment: Specimen Type: BLOOD SPECIMENOrdering Facility: [facility] Address:[address] [place], [place] [address]Performed By: #### SERIMM ####[facility] LABCLIA [id number] [place] [id number] [place] AMERICAIgM [Mass/Vol]376 mg/dL Sxtr06-928YzuomoguyFirelands Regional Medical Center South [facility] on above:Order Comment: Specimen Type: BLOOD SPECIMENOrdering Facility: [facility] Address:[address] [place], [place] [address]Performed By: #### SERIMM ####[facility] LABCLIA [id number] [place] [address] [place] AMERICAIron and Iron binding capacity panelon 53-22-0312Njcd [Mass/Vol]64 ug/sGLxpqbl17-987CbpuzealnFirelands Regional [facility] Center [facility] on above:Order Comment: Specimen Type: BLOOD SPECIMENOrdering Facility: [facility] Address:[address] [place], [place] [address]Performed By: #### 2284- 8, 2276-4, 80238-9, 2131-9 ####[facility] LABCLIA [id number] [place] [address] [place] AMERICAIron binding capacity [Mass/Vol]409 ug/lKQhjr327-664TcjohfscbFirelands Regional [facility] on above:Order Comment: Specimen Type: BLOOD SPECIMENOrdering Facility: [facility] Address:[address] [place] [address] Performed By: #### 2284-8, 2276-4, 85425-0, 9 ####[facility] LABCLIA [id number] [place] [address] [place] AMERICAIron/TIBC [Molar ratio]15.6 %Uvnweg87.0-57.0[facility] on above:Order Comment: Specimen Type: BLOOD SPECIMENOrdering Facility: [facility] Address:[address] [place], [place] [address]Performed By: #### 2284-8, 2276-4, 59227-9, 9 ####[facility] LABCLIA [id number] [place] [address] [place] AMERICALaboratory - Chemistry and Chemistry - challengeon 52-70-5557GsC [Mass/Vol]170 mg/dL70 - 400 mg/dLChillicothe Va Medical CenterIgG [Mass/Vol]663 mg/aLDif216 - 1600 mg/dLChicago ClinicIgM [Mass/Vol]376 mg/wSEnjd26 - 230 mg/dLChillicothe Va Medical CenterNo Panel Informationon 76-26-2218Ugyhqrpamjfjrb and review of laboratory resultsNormalCveterans health administrationand St. Charles HospitalInterpretation and review of laboratory resultsAbnormalCleveland St. Charles HospitalVITAMIN B12 on 48-76-7461Hlpvlyugc (Vitamin B12) [Mass/Vol]516 pg/mL232 - 1245 pg/mL [facility]illicothe Va Medical CenterVit B12 SerPl-mCncon 88-67-0326Fojauoaql (Vitamin B12) [Mass/Vol]516 pg/sOZaguhi932-2330Isvwafrky Clinic ClevelandComment on above: Order Comment: Specimen Type: BLOOD SPECIMENOrdering Facility: [facility] Address:[address] [place], [place] [address]Performed By: #### 2284- 8, 2276-4, 33035-0, 2132-9 ####[facility] LABCLIA [id number] [place] [address] [place] AMERICACNPNon 75-55-8568OCRKXgfmurXuknghamv Clinic ClevelandIGP,APTIMA HPV,AGE GDLNon 25-13-6020SOA GDLN ACOG TESTINGNote.NOMS HealthcareComment on above:TESTS RESULT FLAG UNITS REF RANGE LAB Clinician Provided Cytology Information Source.............Cervix;Endocervix No. of containers..01 ThinPrep Vial Age Algo ACOG Vicky... FLAG LEGEND: L-Low Normal,H-High Normal,LL-Alert Low,HH-Alert High <-Panic Low,>-Panic High,A-Abnormal,AA-Critical Abnormal Performed at: 01 =[address] [place] [address] Aparna Solorzano MD, HPV APTIMANegativeNegativeNOMS HealthcareComment on above:This nucleic acid amplification test detects fourteen high- risk HPV types (16,18,31,33,35,39,45,51,52,56,58,59,66,68) without differentiation. Performed at: =[facility] [id number] Area Relief Pilot: Aparna Solorzano MD, Phone: [phone] Performed at: [address] [id number] Area Relief Pilot: Aparna Solorzano MD, Phone: [phone] IGP, APTIMA HPV, RFX 16/18,45Note.NOMS HealthcareComment on above:TESTS RESULT FLAG UNITS REF RANGE LAB DIAGNOSIS: 02 NEGATIVE FOR INTRAEPITHELIAL LESION OR MALIGNANCY. Specimen adequacy: 02 Satisfactory for evaluation. Endocervical and/or squamous metaplastic cells (endocervical component) are present. Performed by: 02 Kenzei Kam, Pump Installation And Servicer (ASCP) . 02 Note: Note 02 The [...] Low,>-Panic High,A-Abnormal,AA-Critical Abnormal Performed at: [address] [facility] [address] [place] [address] Aparna Solorzano MD, BRUSH-SPATULA CERVIX ENDOCERVIX CLINISYNCMercy Hospital St[facility] W Auto Differential panel (Bld)on 05-19-2024 Basophils (Bld) [#/Vol]0.08 10*3/uLNIACMC Healthcare SystemBasophils/100 WBC (Bld) 0.6 %[facility] Va Medical CenterDifferential cell count method Nom (Bld)AutoCleveland ClinicEosinophils (Bld) [#/Vol]0.17 10*3/uLNINFChillicothe Va Medical CenterEosinophils/100 WBC (Bld)1.2 %[facility] Medical CenterErythrocyte distribution width (RBC) [Ratio]14.3 % 11.5 - 15.0 %[facility] Medical CenterHematocrit (Bld) [Volume fraction]39.8 %36.0 - 46.0 %[facility] Medical CenterHemoglobin (Bld) [Mass/Vol]13.4 g/dL11.5 - 15.5 g/dLChillicothe Va Medical CenterImmature granulocytes (Bld) [#/Vol]0.13 10*3/uLHighNINFChillicothe Va Medical Center Immature granulocytes/100 WBC (Bld)0.9 %[facility] Medical CenterInterpretation and review of laboratory resultsAbnormalCleveland ClinicLymphocytes (Bld) [#/Vol] 2.96 10*3/uLChillicothe Va Medical CenterLymphocytes/100 WBC (Bld)20.5 %[facility]ettering HealthH (RBC) [Entitic mass]31.1 pg26.0 - 34.0 pgCSumma Health Akron CampusHC (RBC) [Mass/Vol] 33.7 g/dL30.5 - 36.0 g/dLChillicothe Va Medical CenterMCV (RBC) [Entitic vol]92.3 fL80.0 - 100.0 fLCglenbeigh hospital ClinicMonocytes (Bld) [#/Vol]0.87 10*3/uLHighNINFChillicothe Va Medical CenterMonocytes/100 WBC (Bld)6.0 %[facility] Medical CenterNeutrophils (Bld) [#/Vol]10.20 10*3/uLHighChillicothe Va Medical CenterNeutrophils/100 WBC (Bld)70.8 %[facility] Nucleated RBC (Bld) [#/Vol]NINFClevelTwin City HospitalNucleated RBC/100 WBC (Bld) [Ratio]0.0 %/100 WBCChillicothe Va Medical CenterPlatelet mean volume (Bld) [Entitic vol]10.1 fL9.0 - 12.7 fLCglenbeigh hospital ClinicPlatelets (Bld) [#/Vol]303 10*3/uLChillicothe Va Medical CenterRBC (Bld) [#/Vol]4.31 10*6/uL3.90 - 5.20 m/uLChillicothe Va Medical CenterWBC (Bld) [#/Vol]14.41 10*3/uLHighMount St. Mary Hospital ClinicBasophils (Bld) [#/Vol] 0.08 10*3/uLNormal<0.11CSelect [facility] on above:Order Comment: Specimen Type: BLOOD SPECIMENOrdering Facility: [facility] Address:[address] [place], [place] [address]Performed By: #### 63454-7 ####[facility] LABIA [id number] [place], [place] [address]Fxklljttu/100 WBC (Bld)0.6 %NormalFirelands Regional Medical Center South [facility] on above:Order Comment: Specimen Type: BLOOD SPECIMENOrdering Facility: [facility] Address:[address] [place], [place] [address]Performed By: #### 33852-1 ####[facility] LABCLIA [id number] [place], [place] [address]Qdstwhuwrqdr cell count method Nom (Bld)AutoNormalCSelect Medical Specialty [facility] on above:Order Comment: Specimen Type: BLOOD SPECIMENOrdering Facility: [facility] Address:[address] [place], [place] [address]Performed By: #### 17388-5 ####[facility] LABCLIA [id number] [place], [place] [address]Muwmmycekak (Bld) [#/Vol]0.17 10*3/uLNormal<0.46[facility] on above:Order Comment: Specimen Type: BLOOD SPECIMENOrdering Facility: [facility] Address:[address] [place], [place] [address]Performed By: #### 48334-0 ####[facility] WESTDAPHNE [facility] LABIA [id number] [place], [place] [address]Glyrantvjiq/100 WBC (Bld)1.2 %NormalFirelands Regional Medical Center South Campus on above:Order Comment: Specimen Type: BLOOD SPECIMENOrdering Facility: [facility] Address:[address] [place], [place] [address]Performed By: #### 69998-1 ####[facility] LABCLIA [id number] [place], [place] [address]Ggzagtfytnk distribution width (RBC) [Ratio]14.3 %Normal 11.5-15.0[facility] on above:Order Comment: Specimen Type: BLOOD SPECIMENOrdering Facility: [facility] Address:[address] [place], [place] [address]Performed By: #### 15904-8 ####[facility] LABIA [id number] [place] [address] Hematocrit (Bld) [Volume fraction]39.8 %Nnaezj43.0-46.0[facility] on above:Order Comment: Specimen Type: BLOOD SPECIMENOrdering Facility: [facility] Address:[address] [place], [place] [address]Performed By: #### 59722-3 ####[facility]ADAPHNE [facility] LABCLIA [id number] [place], [place] [address]Awyduxncvz (Bld) [Mass/Vol]13.4 g/vBXwjjyv69.5-15.5CSelect Medical [facility] on above:Order Comment: Specimen Type: BLOOD SPECIMENOrdering Facility: [facility] Address:[address] [place], [place] [address]Performed By: #### 68395-0 ####[facility] LABCLIA [id number] [place], [place] [address]Rflkvdov granulocytes (Bld) [#/Vol]0.13 10*3/uLHigh<0.10 [facility] on above:Order Comment: Specimen Type: BLOOD SPECIMENOrdering Facility: [facility] Address:[address] [place], [place] [address]Performed By: #### 80468-5 ####[facility] LABCLIA [id number] [place], [place] [address]Ooppjfbs granulocytes/100 WBC (Bld)0.9 %[facility] on above: Order Comment: Specimen Type: BLOOD SPECIMENOrdering Facility: [facility] Address:[address] [place], [place] [address]Performed By: #### 63015- 8 ####[facility] LABCLIA [id number] [place], [place] [address]Hhxukracdtn (Bld) [#/Vol]2.96 10*3/uLNormal1.00-4.00 [facility] on above:Order Comment: Specimen Type: BLOOD SPECIMENOrdering Facility: [facility] Address:[address] [place], [place] [address]Performed By: #### 06423-6 ####[facility] LABIA [id number] [place], [place] [address]Afcfyjamzwn/100 WBC (Bld)20.5 %NormalFirelands Regional Medical Center South Campus on above:Order Comment: Specimen Type: BLOOD SPECIMENOrdering Facility: [facility] Address:[address] [place], [place] [address]Performed By: #### 67246-6 ####[facility] LABCLIA [id number] [place], [place] [address]RQZ (RBC) [Entitic mass]31.1 snQjcnfz93.0-34.0[facility] on above:Order Comment: Specimen Type: BLOOD SPECIMENOrdering Facility: [facility] Address:[address] [place], [place] [address]Performed By: #### 46737-5 ####[facility] LABIA [id number] [place], [place] [address]EEKM (RBC) [Mass/Vol]33.7 g/zRYnbhij03.5-36.0[facility] on above: Order Comment: Specimen Type: BLOOD SPECIMENOrdering Facility: [facility] Address:[address] [place], [place] [address]Performed By: #### 70613- 8 ####[facility] LABIA [id number] [place], [place] [address]TAJ (RBC) [Entitic vol]92.3 uQJaxzmm63.0-100.0[facility] on above:Order Comment: Specimen Type: BLOOD SPECIMENOrdering Facility: [facility] Address:[address] [place], [place] [address]Performed By: #### 87679-3 ####[facility] LABIA [id number] [place], [place] [address]Peljixwnm (Bld) [#/Vol]0.87 10*3/uLHigh<0.87[facility] on above:Order Comment: Specimen Type: BLOOD SPECIMENOrdering Facility: [facility] Address:[address] [place], [place] [address]Performed By: #### 82517- 8 ####[facility] LABCLIA [id number] [place], [place] [address]Irapznvbk/100 WBC (Bld)6.0 %NormalFirelands Regional Medical Center South Campus on above:Order Comment: Specimen Type: BLOOD SPECIMENOrdering Facility: [facility] Address:[address] [place], [place] [address]Performed By: #### 56204-1 ####[facility] LABCLIA [id number] [place], [place] [address]Kidlhsifcja (Bld) [#/Vol]10.20 10*3/uLHigh1.45-7.50[facility] on above:Order Comment: Specimen Type: BLOOD SPECIMENOrdering Facility: [facility] Address:[address] [place], [place] [address]Performed By: #### 21226-4 ####[facility] LABCLIA [id number] [place], [place] [address]Fvvvchctqny/100 WBC (Bld)70.8 %NormalFirelands Regional Medical Center South Campus on above:Order Comment: Specimen Type: BLOOD SPECIMENOrdering Facility: [facility] Address:[address] [place], [place] [address]Performed By: #### 74614-7 ####[facility] LABCLIA [id number] [place], [place] [address]Umawkdfns RBC (Bld) [#/Vol] 10*3/uLNormal<0.01[facility] on above:Order Comment: Specimen Type: BLOOD SPECIMENOrdering Facility: [facility] Address:[address] [place], [place] [address]Performed By: #### 11744-0 ####[facility] LABCLIA [id number] [place], [place] [address]Sfkyggyqb RBC/100 WBC (Bld) [Ratio]0.0 /100 WBCNormal [facility] on above:Order Comment: Specimen Type: BLOOD SPECIMENOrdering Facility: [facility] Address:[address] [place], [place] [address]Performed By: #### 41935-3 ####[facility] LABCLIA [id number] [place], [place] [address]Jtouagso mean volume (Bld) [Entitic vol]10.1 fLNormal9.0-12.7CSelect Medical Specialty [facility] on above:Order Comment: Specimen Type: BLOOD SPECIMENOrdering Facility: [facility] Address:[address] [place] [address] Performed By: #### 28878-2 ####[facility] LABCLIA [id number] [place], [place] [address]Bnfycanob (Bld) [#/Vol]303 10*3/lHGcckew325-347LnjxolzmmFirelands Regional Medical Center [facility] on above:Order Comment: Specimen Type: BLOOD SPECIMENOrdering Facility: [facility] Address:[address] [place], [place] [address]Performed By: #### 81373-7 ####[facility] LABCLIA [id number] [place], [place] [address]EYN (Bld) [#/Vol]4.31 10*6/uLNormal3.90-5.20[facility] on above:Order Comment: Specimen Type: BLOOD SPECIMENOrdering Facility: [facility] Address:[address] [place], [place] [address]Performed By: #### 82538-6 ####[facility] LABIA [id number] [place], [place] [address]WLL (Bld) [#/Vol]14.41 10*3/uLHigh3.70-11.00[facility] on above: Order Comment: Specimen Type: BLOOD SPECIMENOrdering Facility: [facility] Address:[address] [place], [place] [address]Performed By: #### 58102- 8 ####[facility] LABCLIA [id number] [place], [place] [address]Waezgxerbdwth metabolic 2000 panelon 65-75-8329Ggklqmi [Mass/Vol]4.0 g/dL3.9 - 4.9 g/dLChicago ClinicALP [Catalytic activity/Vol]79 U/L34 - 123 U/LCleveland ClinicALT [Catalytic activity/Vol]25 U/L7 - 38 U/L Chicago ClinicAnion gap [Moles/Vol]14 mmol/L8 - 15 mmol/LCleveland ClinicAST [Catalytic activity/Vol]12 U/LLow13 - 35 U/LCleveland ClinicBilirubin [Mass/Vol] mg/dLLow0.2 - 1.3 mg/dLChicago ClinicCalcium [Mass/Vol]9.4 mg/dL8.5 - 10.2 mg/dLChicago ClinicChloride [Moles/Vol]105 mmol/L98 - 107 mmol/LCleveland ClinicCO2 [Moles/Vol]21 mmol/LLow22 - 30 mmol/LCleveland ClinicCreatinine [Mass/Vol]0.49 mg/dLLow0.58 - 0.96 mg/dLChicago ClinicGFR/1.73 sq M.predicted among non-blacks MDRD (S/P/Bld) [Vol rate/Area]120 mL/min/{1.73_m2}- PINF [facility]icothe Va Medical CenterComment on above:Estimated Glomerular Filtration Rate (eGFR) is calculated using the 2020 CKD-EPI creatinine equation. This equation utilizes serum creatinine, sex, and age as parameters. The creatinine assay has traceable calibration to isotope dilution-mass spectrometry. Refer to KDIGO guidelines for clinical interpretation. In patients with unstable renal function, e.g. those with acute kidney injury, the eGFRmay not accurately reflect actual GFR.Glucose [Mass/Vol]155 mg/pSSbcs85 - 99 mg/dLOhioHealth Pickerington Methodist Hospitalment on above:The [place] Diabetes Association (ADA) provides guidance for cutoff [...] Standards of Medical Care in Diabetes 2016, [place] [employer]. Diabetes Care. 2016.39(Suppl 1). Interpretation and review of laboratory resultsAbnormalCleveland ClinicPotassium [Moles/Vol]3.8 mmol/L3.7 - 5.1 mmol/LClevelunc health appalachian ClinicProtein [Mass/Vol]6.6 g/dL 6.3 - 8.0 g/dLChicago ClinicSodium [Moles/Vol]140 mmol/L136 - 144 mmol/L [facility] Va Medical CenterUrea nitrogen [Mass/Vol]12 mg/dL7 - 21 mg/dLFayette County Memorial Hospital ClinicAlbumin [Mass/Vol]4.0 g/dLNormal3.9-4.9CDayton Children's HospitalComment on above:Order Comment: Specimen Type: BLOOD SPECIMENOrdering Facility: [facility] Address:[address] [place], [place] [address]Performed By: #### 97699-8 ####[facility] LABCLIA [id number] [place] [address] [place] ALP [Catalytic activity/Vol]79 U/GSesuwn26-662CvdebthaeFirelands Regional Medical Center [facility] on above:Order Comment: Specimen Type: BLOOD SPECIMENOrdering Facility: [facility] Address:[address] [place] [address] Performed By: #### 71511-1 ####[facility] LABCLIA [id number] [place] [address] [place] ALT [Catalytic activity/Vol]25 U/LNormal7-38[facility] on above:Order Comment: Specimen Type: BLOOD SPECIMENOrdering Facility: [facility] Address:[address] [place], [place] [address]Performed By: #### 59725-7 ####[facility] LABCLIA [id number] [place] [address] [place] AMERICAAnion gap [Moles/Vol] 14 mmol/LNormal8-15[facility] on above:Order Comment: Specimen Type: BLOOD SPECIMENOrdering Facility: [facility] Address:[address] [place], [place] [address]Performed By: #### 55022-0 ####[facility] LABCLIA [id number] [place] [address] [place] AMERICAAST [Catalytic activity/Vol]12 U/AFin43-33NpdiavyrvFirelands Regional Medical Center South Campus on above:Order Comment: Specimen Type: BLOOD SPECIMENOrdering Facility: [facility] Address:[address] [place], [place] [address]Performed By: #### 38698-3 ####[facility] LABCLIA [id number] [place] [address] [place] AMERICABilirubin [Mass/Vol]mg/dLLow0.2-1.3CSelect [facility] on above:Order Comment: Specimen Type: BLOOD SPECIMENOrdering Facility: [facility] Address:[address] [place], [place] [address]Performed By: #### 91461-3 ####[facility] LABCLIA [id number] [place] [address] [place] Calcium [Mass/Vol]9.4 mg/dLNormal8.5-10.2CSelect [facility] on above:Order Comment: Specimen Type: BLOOD SPECIMENOrdering Facility: [facility] Address:[address] [place], [place] [address]Performed By: #### [id number] ####[facility] LABCLIA [id number] [place] [address] [place] AMERICAChloride [Moles/Vol] 105 mmol/MYwrifq77-695PtmrydlftFirelands [facility] on above:Order Comment: Specimen Type: BLOOD SPECIMENOrdering Facility: [facility] Address:[address] [place], [place] [id number] By: #### 85992-7 ####[facility] LABIA [id number] [place] [address] [place] AMERICACO2 [Moles/Vol]21 mmol/RXnc20-94 [facility] on above:Order Comment: Specimen Type: BLOOD SPECIMENOrdering Facility: [facility] Address:[address] [place], [place] [address]Performed By: #### [id number] ####[facility] LABIA [id number] [place] [address] [place] AMERICACreatinine [Mass/Vol]0.49 mg/dLLow0.58-0.96[facility] Comment on above:Order Comment: Specimen Type: BLOOD SPECIMENOrdering Facility: [facility] Address:[address] [place] [address] Performed By: #### 42517-8 ####[facility]ENTER[facility] [id number] [place] [address] [place] Creatinine and Glomerular filtration rate.predicted panel (S/P/Bld)120 mL/min/1.73m???Normal>=60[facility] on above:Order Comment: Specimen Type: BLOOD SPECIMENOrdering Facility: [facility] Address:[address] [place], [place] [address]Result Comment: Estimated Glomerular Filtration Rate (eGFR) is [...] not accurately reflect actual GFR.Performed By: #### 87502-1 ####[facility] LABIA [id number] [place] [address] [place] AMERICAGlucose [Mass/Vol]155 mg/dLHigh 74-99[facility] on above:Order Comment: Specimen Type: BLOOD SPECIMENOrdering Facility: [facility] Address:[address] [place], [place] [address]Result Comment: The [place] Diabetes Association (ADA) provides guidance for cutoff [...] Standards of Medical Care in Diabetes 2016, [place] Diabetes Association. Diabetes Care. 2016.39(Suppl 1).Performed By: #### 36346-4 ####[facility] LABCLIA [id number] [place] [address] [place] AMERICAPotassium [Moles/Vol]3.8 mmol/L Normal3.7-5.1CSelect [facility] on above:Order Comment: Specimen Type: BLOOD SPECIMENOrdering Facility: [facility] Address:[address] [place], [place] [address]Performed By: #### 70078-1 ####[facility] LABCLIA [id number] [place] [address] [place] AMERICAProtein [Mass/Vol]6.6 g/dLNormal6.3-8.0[facility] on above:Order Comment: Specimen Type: BLOOD SPECIMENOrdering Facility: [facility] Address:[address] [place], [place] [address]Performed By: #### 84823-8 ####[facility] LABCLIA [id number] [place] [address] [place] Sodium [Moles/Vol]140 mmol/OYqvdpy277-243Vryuqsofn Clinic ClevelandComment on above:Order Comment: Specimen Type: BLOOD SPECIMENOrdering Facility: [facility] Address:[address] [place], [place] [address]Performed By: #### 33988-4 ####[facility] LABCLIA [id number] [place] [address] [place] AMERICAUrea nitrogen [Mass/Vol]12 mg/dLNormal7-[facility] on above:Order Comment: Specimen Type: BLOOD SPECIMENOrdering Facility: [facility] Address:[address] [place], [place] [address]Performed By: #### 14153- 8 ####[facility] LABCLIA [id number] [place] [address] [place] AMERICAESR Westergren method (Bld) [Velocity]on 35-65-3521BWW (Bld) [Velocity]21 mm/hHighChillicothe Va Medical Center Interpretation and review of laboratory resultsAbnormalCleveland St. Charles HospitalESR (Bld) [Velocity]21 mm/hHigh0-20[facility] on above:Order Comment: Specimen Type: BLOOD SPECIMENOrdering Facility: [facility] Address:[address] [place], [place] [address]Performed By: #### 4537-7 ####[facility] LABCLIA [id number] [place] [address] [place] AMERICAFERRITIN BLDon 96-41-9668Bdpzegsl [Mass/Vol]20.6 ng/mL14.7 - 205.1 ng/mLCleveland Children'S MinnesotaFOLATE SERUMon 37-07-8199Vckprp [Mass/Vol]11.1 ng/mL4.7 - PINF ng/mLCleveland Children'S Minnesota Ferritin SerPl-mCncon 68-83-1101Buxocmgf [Mass/Vol]20.6 ng/pLNqfqlt17.7-205.1 [facility] on above:Order Comment: Specimen Type: BLOOD SPECIMENOrdering Facility: [facility] Address:[address] [place], [place] [address]Performed By: #### 61948-8, 6-4, 8, 2132-01 ####[facility] LABCLIA [id number] [place] [id number] [place] AMERICAFolate SerPl-mCncon 05-19-2024 Folate [Mass/Vol]11.1 ng/mLNormal>4.7CDayton Children's HospitalComment on above: Order Comment: Specimen Type: BLOOD SPECIMENOrdering Facility: [facility] Address:[address] [place], [place] [address]Performed By: #### 46954- 8, 2275-4, 8, 2132-01 ####[facility] LABCLIA [id number] [place] [address] [place] AMERICAIron and Iron binding capacity panelon 06-37-0910Kaqwziowvzgdcv and review of laboratory resultsAbnormalClevelunc health appalachian ClinicIron [Mass/Vol]47 ug/dL41 - 186 ug/dLUniversity Hospitals Ahuja Medical Centern binding capacity [Mass/Vol]420 ug/rQEhrd385 - 386 ug/dLChillicothe Va Medical CenterIron/TIBC [Molar ratio]11.2 %Low15.0 - 57.0 %[facility]ner Medical CenterIron [Mass/Vol]47 ug/lKYryfze72-895PqnxucfkzFayette County Memorial HospitalComment on above:Order Comment: Specimen Type: BLOOD SPECIMENOrdering Facility: [facility] Address:[address] [place], [place] [address]Performed By: #### 80925-0, 2275-4, 2283-12, 2132-01 ####[facility] LABCLIA [id number] [place] [address] [place] Iron binding capacity [Mass/Vol]420 ug/yJCkyb160-033BatjofholFayette County Memorial Hospital Comment on above:Order Comment: Specimen Type: BLOOD SPECIMENOrdering Facility: [facility] Address:[address] [place] [address] Performed By: #### 41423-3, 2275-4, 2283-12, 2132-01 ####[facility] LABCLIA [id number] [address] [address] [place] AMERICAIron/TIBC [Molar ratio]11.2 %Low15.0-57.0[facility] on above:Order Comment: Specimen Type: BLOOD SPECIMENOrdering Facility: [facility] Address:[address] [place], [place] [address]Performed By: #### 76160-6, 2275-4, 2283-12, 2132-01 ####[facility] LABCLIA [id number] [place] [id number] [place] [facility] Panel Informationon 16-93-1405Ghudrcnknnbdzy and review of laboratory resultsNormalCACMC Healthcare SystemVITAMIN B12 BLOODon 00-16-5444Dhrlhtxmv (Vitamin B12) [Mass/Vol]632 pg/mL232 - 1245 pg/mL [facility] Va Medical CenterVit B12 SerPl-mCncon 04-90-4307Auqtccgek (Vitamin B12) [Mass/Vol]632 pg/fNOjzszx891-1322KlqtntpqoSelect Medical Specialty [facility] on above: Order Comment: Specimen Type: BLOOD SPECIMENOrdering Facility: [facility] Address:[address] [place], [place] [address]Performed By: #### 60374- 8, 4, 2283-12, 2132-01 ####[facility] LABCLIA [id number] [place] [id number] [place] AMERICACNNURSE on 97-52-0288TDDSYMVKhkwauAbpbtqmvy Clinic ClevelandCNPNon 12-83-5692POVLClpcxd [facility] CBC WITH AUTO DIFFon 36-30-2665KUORSWDVO ABSOLUTE AUTO0.1NOMS HealthcareBasophils/100 WBC (Bld)0.4 %0.2 - 2.0 %[facility] Eosinophils/100 WBC (Bld)0.4 %Low0.9 - 7.0 %NOMS HealthcareErythrocyte distribution width (RBC) [Ratio]15.1 %High11.0 - 15.0 %[facility] Health SystemsHematocrit (Bld) [Volume fraction]39.7 %36.0 - 48.0 %[facility] SystemsHemoglobin (Bld) [Mass/Vol]13 g/dL12.0 - 16.0 g/dLPemiscot Memorial Health SystemsIMMATURE GRANULOCYTES ABS AUTO 0.1HighNOReynolds County General Memorial HospitalImmature granulocytes/100 WBC (Bld)0.9 %High0.0 - 0.5 % [facility] SystemsInterpretation and review of laboratory resultsAbnormalPemiscot Memorial Health SystemsLYMPHOCYTES ABSOLUTE AUTO2.1[facility] HospitalLymphocytes/100 WBC (Bld) 18.4 %Low20.5 - 60.0 %[facility] (RBC) [Entitic mass]30.9 pg26.7 - 34.0 pgMetropolitan Saint [facility] (RBC) [Mass/Vol]32.7 g/dL29.9 - 35.2 g/dLPemiscot Memorial Health Systems MCV (RBC) [Entitic vol]94.3 fL81.0 - 99.0 fLPemiscot Memorial Health SystemsMONOCYTES ABSOLUTE AUTO0.8NOReynolds County General Memorial HospitalMonocytes/100 WBC (Bld)6.7 %1.7 - 12.0 %[facility] NEUTROPHILS ABSOLUTE AUTO8.3HighPemiscot Memorial Health SystemsNeutrophils/100 WBC (Bld)73.2 % 43.0 - 75.0 %[facility] Health SystemsPlatelet mean volume (Bld) [Entitic vol]10.1 fL9.5 - 13.5 fLPemiscot Memorial Health SystemsTB EO #0.1NOMS [facility] OMQ462LJEZCoxHealth RBC 4.21NOCoxHealth WBC11.4HighPemiscot Memorial Health SystemsCLINISYNCNPike County Memorial Hospital THYROID STIM HORMONEon 27-49-5403Nbmgmfizdftuvt and review of laboratory results AbnormalLake Regional Health System Qn0.333 m[IU]/LLowSullivan County Memorial Hospital THYROXINE (T4) FREEon 84-26-6849Pxsg T4 [Mass/Vol]1.01 ng/dL0.76 - 1.46 ng/dLPemiscot Memorial Health Systems CLINISYNCPemiscot Memorial Health SystemsCCF APTTon 84-22-9024mVQY Coag (Bld) [Time]25.6 [facility] HospitalR HEMOGLOBIN A1Con 61-35-6196Mboptqx [Mass/Vol]134 mg/dLPemiscot Memorial Health SystemsHbA1c (Bld) [Mass fraction]6.3 %High4.5 - 6.2 %[facility] HealthcareComment on above:ADA RECOMMENDED LIMIT 4.0 - 6.0 ADA THERAPEUTIC TARGET < 7.0 ACTION SUGGESTED > 7.0 Interpretation and review of laboratory resultsAbnormalNONY HealthcareCLINISYNRESEARCH MEDICAL CENTER HealthcareNo Panel Informationon 45-79-9272YFMQFWEGMGEOX Healthcare CLINISYNCSaint Luke's HospitalOH PROTHROMBIN TIME INR W/O COUMon 68-20-2395EZ Coag (PPP) [Time]9.6 [facility] INR<0.93NONY HealthcareComment on above: DESIRED INR: 2.0-3.0 CONDITIONS NOT LISTED BELOW 2.5-3.5 FOR PROSTHETIC HEART VALVE REPLACEMENT 2.5-3.5 RECURRENT THROMBOSIS TBH PREG QUANT HCGon 88-78-8343UWF QUANTITATIVE<1mIU/mLNOMS HealthcareComment on above:5-50 0.2-1 WEEK 50-500 1-2 WEEKS 100-5,000 2-3 WEEKS 500-10,000 3-4 WEEKS 1,000-50,000 4-5 WEEKS 10,000-100,000 5-6 WEEKS 15,000-200,000 6-8 WEEKS 10,000-100,000 2-3 MONTHS CNPNon 13-26-2337GVBNExwvzaAyhvxblvc Clinic Niaeethsw59([place])D3 SerPl-[facility] Hospitalon 816744-gkqiyhrlbywxbo D3 [Mass/Vol]19.9 ng/mLLow31.0-80.0F[facility] County Memorial HospitalComment on above:Order Comment: Specimen Type: BLOOD SPECIMENOrdering Facility: [facility] Address:[address] [place], [place] [address]Result Comment: Classification of 25 [place] Vitamin D status:Deficiency/Insufficiency: < or = 30 ng/ml.Sufficiency/Optimal Levels: 31- 80 ng/mLToxicity: > 100 ng/mL.Test performed by chemiluminescent immunoassay. Performed By: #### 1989-3 ####[facility] LABCLIA [id number] [place] [address] [place] BLOOD TB SCREENon 03-23-2024M. tuberculosis tuberculin stim IFN-g Ql (Bld) NegativeNormalCSelect [facility] on above:Order Comment: Specimen Type: BLOOD SPECIMENOrdering Facility: [facility] Address:[address] [place], [place] [address]Performed By: #### INFTBP ####[facility] LABCLIA [id number] [place] [address] [place] AMERICAMITOGEN MINUS NIL>10.00Normal>=0.50[facility] on above:Order Comment: Specimen Type: BLOOD SPECIMENOrdering Facility: [facility] Address:[address] [place], [place] [address]Performed By: #### INFTBP ####[facility] LABCLIA [id number] [place] [address] [place] TB GAMMA INTERPRETATIONNormalCSelect Medical Specialty [facility] on above:Order Comment: Specimen Type: BLOOD SPECIMENOrdering Facility: [facility] Address:[address] [place], [place] [address]Performed By: #### INFTBP ####[facility] LABCLIA [id number] [place] [address] [place] AMERICATB NIL<0.00Normal<=8.00[facility] on above:Order Comment: Specimen Type: BLOOD SPECIMENOrdering Facility: [facility] Address:[address] [place], [place] [address]Performed By: #### INFTBP ####[facility] LABCLIA [id number] [place] [address] [place] AMERICATB1 AG MINUS NIL0.00 IU/mLNormal<0.35[facility] on above:Order Comment: Specimen Type: BLOOD SPECIMENOrdering Facility: [facility] Address:[address] [place], [place] [address]Performed By: #### INFTBP ####[facility] LABCLIA [id number] [place] [address] [place] AMERICATB2 AG MINUS NIL0.00 IU/mLNormal<0.35[facility] on above:Order Comment: Specimen Type: BLOOD SPECIMENOrdering Facility: [facility] Address:[address] [place], [place] [address]Performed By: #### INFTBP ####[facility] LABSPR[facility] [id number] [place] [address] [place] AMERICABacteria Bld Culton 03-23-2024 Bacteria identified Cx Nom (Bld)CULTURE, BLOOD: No growth 5 daysNormalCSelect Medical [facility] on above:Performed By: #### 600-7 ####[facility] [id number] [address] STATES OF AMERICACB W Auto Differential panel (Bld)on 38-83-7122Emztsvamw (Bld) [#/Vol]0.06 10*3/uLNormal <0.11CSelect [facility] on above:Order Comment: Specimen Type: BLOOD SPECIMENOrdering Facility: [facility] Address:[address] [place], [place] [address]Performed By: #### 29405-8 ####[facility] LABCLIA [id number] [place] [address] Basophils/100 WBC (Bld)0.5 %NormalFirelands Regional Medical Center [facility] on above: Order Comment: Specimen Type: BLOOD SPECIMENOrdering Facility: [facility] Address:[address] [place], [place] [address]Performed By: #### 93312- 8 ####[facility] LABIA [id number] [place], [place] [address]Jctkjgbpfcik cell count method Nom (Bld)AutoNormal [facility] on above:Order Comment: Specimen Type: BLOOD SPECIMENOrdering Facility: [facility] Address:[address] [place], [place] [address]Performed By: #### 45836-5 ####[facility] LABCLIA [id number] [place], [place] [address]Odbyfdjzgce (Bld) [#/Vol]0.13 10*3/uLNormal<0.46[facility] on above: Order Comment: Specimen Type: BLOOD SPECIMENOrdering Facility: [facility] Address:[address] [place], [place] [address]Performed By: #### 60507- 8 ####[facility] LABCLIA [id number] [place], [place] [address]Nlikvijpztz/100 WBC (Bld)1.0 %NormalFirelands Regional Medical Center South Campus on above:Order Comment: Specimen Type: BLOOD SPECIMENOrdering Facility: [facility] Address:[address] [place], [place] [address]Performed By: #### 57101-6 ####[facility] LABIA [id number] [place], [place] [address]Zefvqkzfdxl distribution width (RBC) [Ratio]15.2 %High11.5-15.0[facility] on above:Order Comment: Specimen Type: BLOOD SPECIMENOrdering Facility: [facility] Address:[address] [place], [place] [address]Performed By: #### 66726- 8 ####[facility] LABIA [id number] [place], [place] [address]Vaixgbaonj (Bld) [Volume fraction]39.3 %Yuyiod07.0-46.0 [facility] on above:Order Comment: Specimen Type: BLOOD SPECIMENOrdering Facility: [facility] Address:[address] [place], [place] [address]Performed By: #### 33866-6 ####[facility] LABIA [id number] [place], [place] [address]Sivisywpbq (Bld) [Mass/Vol]13.1 g/wFGbzzev29.5-15.5CSelect Medical Specialty [facility] on above: Order Comment: Specimen Type: BLOOD SPECIMENOrdering Facility: [facility] Address:[address] [place], [place] [address]Performed By: #### 66703- 8 ####[facility] LABCLIA [id number] [place], [place] [address]Fanfwexq granulocytes (Bld) [#/Vol]0.12 10*3/uLHigh<0.10 [facility] on above:Order Comment: Specimen Type: BLOOD SPECIMENOrdering Facility: [facility] Address:[address] [place], [place] [address]Performed By: #### 34821-7 ####[facility] LABCLIA [id number] [place], [place] [address]Clymmxhv granulocytes/100 WBC (Bld)0.9 %[facility] on above: Order Comment: Specimen Type: BLOOD SPECIMENOrdering Facility: [facility] Address:[address] [place], [place] [address]Performed By: #### 60020- 8 ####[facility] LABCLIA [id number] [place], [place] [address]Saubdusolge (Bld) [#/Vol]2.03 10*3/uLNormal1.00-4.00 [facility] on above:Order Comment: Specimen Type: BLOOD SPECIMENOrdering Facility: [facility] Address:[address] [place], [place] [address]Performed By: #### 18172-9 ####[facility] LABIA [id number] [place], [place] [address]Ialjhrjnuhk/100 WBC (Bld)15.7 %NormalFirelands Regional Medical Center [facility] on above:Order Comment: Specimen Type: BLOOD SPECIMENOrdering Facility: [facility] Address:[address] [place], [place] [address]Performed By: #### 73146-8 ####[facility] LABCLIA [id number] [place], [place] [address]EFH (RBC) [Entitic mass]31.3 rzAthqxg80.0-34.0[facility] on above:Order Comment: Specimen Type: BLOOD SPECIMENOrdering Facility: [facility] Address:[address] [place], [place] [address]Performed By: #### 31088-8 ####[facility] LABCLIA [id number] [place], [place] [address]RJOU (RBC) [Mass/Vol]33.3 g/dHXgxdjv18.5-36.0[facility] on above: Order Comment: Specimen Type: BLOOD SPECIMENOrdering Facility: [facility] Address:[address] [place], [place] [address]Performed By: #### 93390- 8 ####[facility] LABCLIA [id number] [place], [place] [address]YQK (RBC) [Entitic vol]93.8 xMQzzzub11.0-100.0[facility] on above:Order Comment: Specimen Type: BLOOD SPECIMENOrdering Facility: [facility] Address:[address] [place], [place] [address]Performed By: #### 83928-7 ####[facility] LABCLIA [id number] [place], [place] [address]Duulbtezh (Bld) [#/Vol]0.65 10*3/uLNormal<0.87[facility] on above:Order Comment: Specimen Type: BLOOD SPECIMENOrdering Facility: [facility] Address:[address] [place], [place] [address]Performed By: #### 93604- 8 ####[facility] LABIA [id number] [place], [place] [address]Bqizjekfl/100 WBC (Bld)5.0 %NormalFirelands Regional Medical Center [facility] on above:Order Comment: Specimen Type: BLOOD SPECIMENOrdering Facility: [facility] Address:[address] [place], [place] [address]Performed By: #### 16432-5 ####[facility] LABCLIA [id number] [place], [place] [address]Ipgihwdxlho (Bld) [#/Vol]9.90 10*3/uLHigh1.45-7.50[facility] on above:Order Comment: Specimen Type: BLOOD SPECIMENOrdering Facility: [facility] Address:[address] [place], [place] [address]Performed By: #### 70931-4 ####[facility] LABCLIA [id number] [place], [place] [address]Etwqycxkaai/100 WBC (Bld)76.9 %NormalFirelands Regional Medical Center [facility] on above:Order Comment: Specimen Type: BLOOD SPECIMENOrdering Facility: [facility] Address:[address] [place], [place] [address]Performed By: #### 55355-7 ####[facility] LABCLIA [id number] [place], [place] [address]Lyweljyur RBC (Bld) [#/Vol] 10*3/uLNormal<0.01[facility] on above:Order Comment: Specimen Type: BLOOD SPECIMENOrdering Facility: [facility] Address:[address] [place], [place] [address]Performed By: #### 05028-8 ####[facility] LABCLIA [id number] [place], [place] [address]Itmhicuip RBC/100 WBC (Bld) [Ratio]0.0 /100 WBCNormal [facility] on above:Order Comment: Specimen Type: BLOOD SPECIMENOrdering Facility: [facility] Address:[address] [place], [place] [address]Performed By: #### 50215-9 ####[facility] LABCLIA [id number] [place], [place] [address]Kkrhskkk mean volume (Bld) [Entitic vol]10.0 fLNormal9.0-12.7CSelect [facility] Special[facility] on above:Order Comment: Specimen Type: BLOOD SPECIMENOrdering Facility: [facility] Address:[address] [place] [address] Performed By: #### 59834-5 ####[facility] LABCLIA [id number] [place], [place] [address]Prsiwivey (Bld) [#/Vol]262 10*3/zZUmkvkh885-415DxwjlwaalFirelands Regional [facility] on above:Order Comment: Specimen Type: BLOOD SPECIMENOrdering Facility: [facility] Address:[address] [place], [place] [address]Performed By: #### 20673-5 ####[facility] LABCLIA [id number] [place], [place] [address]GCV (Bld) [#/Vol]4.19 10*6/uLNormal3.90-5.20[facility] on above:Order Comment: Specimen Type: BLOOD SPECIMENOrdering Facility: [facility] Address:[address] [place], [place] [address]Performed By: #### 25878-4 ####[facility] LABCLIA [id number] [place], [place] [address]MDQ (Bld) [#/Vol]12.89 10*3/uLHigh3.70-11.00[facility] on above: Order Comment: Specimen Type: BLOOD SPECIMENOrdering Facility: [facility] Address:[address] [place], [place] [address]Performed By: #### 11861- 8 ####[facility] LABCLIA [id number] [place], [place] [address]SKQSCKOce 90-96-9538URLDIUDAlwpvwUsjdcwwuj Clinic ClevelandCR SerPl-mCncon 01-66-6990FIR [Mass/Vol]0.3 mg/dLNormal<0.9ClevelHighland District Hospital on above:Order Comment: Specimen Type: BLOOD SPECIMENOrdering Facility: [facility] Address:[address] [place], [place] [address]Performed By: #### 09837-7, 2276-4, 1987-09 ####[facility] LABCLIA [id number] [place] [id number] [place] OF AMERICAComprehensive metabolic 2000 panelon 03-23-2024 Albumin [Mass/Vol]3.9 g/dLNormal3.9-4.9CSelect Medical [facility] on above:Order Comment: Specimen Type: BLOOD SPECIMENOrdering Facility: [facility] Address:[address] [place], [place] [address]Performed By: #### 97772-9 ####[facility] LABCLIA [id number] [address] [address] [place] AMERICAALP [Catalytic activity/Vol]70 U/XMwpcqa47-102YprkyqljzFirelands Regional [facility] on above:Order Comment: Specimen Type: BLOOD SPECIMENOrdering Facility: [facility] Address:[address] [place], [place] [address]Performed By: #### 52605- 8 ####[facility] LABCLIA [id number] [place] [id number] [place] [Catalytic activity/Vol]27 U/LNormal7-38[facility] on above:Order Comment: Specimen Type: BLOOD SPECIMENOrdering Facility: [facility] Address:[address] [place], [place] [address]Performed By: #### 35409-2 ####[facility] LABCLIA [id number] [place] [id number] [place] AMERICAAnion gap [Moles/Vol]15 mmol/LNormal8-15[facility] on above:Order Comment: Specimen Type: BLOOD SPECIMENOrdering Facility: [facility] Address:[address] [place], [place] [address]Performed By: #### 69122-1 ####[facility] LABCLIA [id number] [place] [address] [place] AST [Catalytic activity/Vol]20 U/HKzzdue51-84XprgwjjjzFirelands [facility] on above:Order Comment: Specimen Type: BLOOD SPECIMENOrdering Facility: [facility] Address:[address] [place] [address] Performed By: #### 46028-2 ####[facility] LABCLIA [id number] [place] [address] [place] Bilirubin [Mass/Vol]mg/dLLow0.2-1.3CSelect [facility] on above: Order Comment: Specimen Type: BLOOD SPECIMENOrdering Facility: [facility] Address:[address] [place], [place] [address]Performed By: #### 06730- 8 ####[facility] LABCLIA [id number] [place] [address] [place] AMERICACalcium [Mass/Vol]9.2 mg/dLNormal 8.5-10.2CSelect [facility] on above:Order Comment: Specimen Type: BLOOD SPECIMENOrdering Facility: [facility] Address:[address] [place], [place] [address]Performed By: #### 46233-3 ####[facility] LABCLIA [id number] [place] [address] [place] AMERICAChloride [Moles/Vol]104 mmol/XAlymzp66-823HqsqixnhaFirelands Regional [facility] Center [facility] on above:Order Comment: Specimen Type: BLOOD SPECIMENOrdering Facility: [facility] Address:[address] [place], [place] [address]Performed By: #### 43231-6 ####[facility] LABIA [id number] [place] [address] [place] AMERICACO2 [Moles/Vol]20 mmol/GMmo61-89ChxswshyzFirelands Regional Medical Center South Campus on above:Order Comment: Specimen Type: BLOOD SPECIMENOrdering Facility: [facility] Address:[address] [place], [place] [address]Performed By: #### 91119-8 ####[facility]ENTER[facility] [id number] [place] [address] [place] AMERICACreatinine [Mass/Vol] 0.61 mg/dLNormal0.58-0.96[facility] on above:Order Comment: Specimen Type: BLOOD SPECIMENOrdering Facility: [facility] Address:[address] [place], [place] [address]Performed By: #### 03481- 8 ####[facility] [id number] [place] [address] [place] AMERICACreatinine and Glomerular filtration rate.predicted panel (S/P/Bld)114 mL/min/1.73m???Normal>=60[facility] on above:Order Comment: Specimen Type: BLOOD SPECIMENOrdering Facility: [facility] Address:[address] [place], [place] [address]Result Comment: Estimated Glomerular Filtration Rate (eGFR) is calculated using the 2020 CKD-EPI creatinine equation. This equation utilizes serum creatinine, sex, and age as parameters. The creatinine assay has traceable calibration to isotope dilution-mass spectrometry. Refer to KDIGO guidelines for clinical interpretation. In patients with unstable renal function, e.g. those with acute kidney injury, the eGFR may not accurately reflect actual GFR.Performed By: #### 65745-2 ####[facility] LABIA [id number] [place] [address] [place] AMERICAGlucose [Mass/Vol]152 mg/sVKrev85-50NjecdclnmFirelands Regional Medical Center South [facility] on above:Order Comment: Specimen Type: BLOOD SPECIMENOrdering Facility: [facility] Address:[address] [id number] Comment: The [place] Diabetes Association (ADA) provides guidance for cutoff [...] Standards of Medical Care in Diabetes 2016, [place] Diabetes Association. Diabetes Care. 2016.39(Suppl 1).Performed By: #### 16348-8 ####[facility] LABCLIA [id number] [place] [address] [place] AMERICAPotassium [Moles/Vol]4.3 mmol/LNormal3.7-5.1CDayton Children's Hospital Comment on above:Order Comment: Specimen Type: BLOOD SPECIMENOrdering Facility: [facility] Address:[address] [place] [address] Performed By: #### 20539-7 ####[facility] LABIA [id number] [place] [address] [place] Protein [Mass/Vol]6.6 g/dLNormal6.3-8.0[facility] County Memorial HospitalComment on above:Order Comment: Specimen Type: BLOOD SPECIMENOrdering Facility: [facility] Address:[address] [place], [place] [id number] By: #### 73526-5 ####[facility] LABIA [id number] [place] [address] [place] AMERICASodium [Moles/Vol]139 mmol/SOfluxz382-321XeiwrxzhgFayette County Memorial HospitalCommclaren northern [place] on above:Order Comment: Specimen Type: BLOOD SPECIMENOrdering Facility: [facility] Address:[address] [place], [place] [address]Performed By: #### 37816-0 ####[facility] [id number] [place] [address] [place] AMERICAUrea nitrogen [Mass/Vol]20 mg/dL Normal7-21[facility] on above:Order Comment: Specimen Type: BLOOD SPECIMENOrdering Facility: [facility] Address:[address] [place], [place] [address]Performed By: #### 66852-8 ####[facility] [id number] [place] [address] [place] AMERICAESR Westergren method (Bld) [Velocity]on 76-53-2181QUI (Bld) [Velocity]27 mm/hHigh0-20[facility] on above:Order Comment: Specimen Type: BLOOD SPECIMENOrdering Facility: [facility] Address:[address] [place], [place] [address]Performed By: #### 4537-7 ####[facility] [id number] [place] [address] [place] AMERICAFerritin SerPl-mCncon 03-23-2024 Ferritin [Mass/Vol]33.3 ng/cKMdzfyk44.7-205.1CSelect Medical Specialty [facility] on above:Order Comment: Specimen Type: BLOOD SPECIMENOrdering Facility: [facility] Address:[address] [place] [address] Performed By: #### 66695-5, 2276-4, 1987- ####[facility] [id number] [place] [address] [place] AMERICAFolate SerPl-mCncon 13-43-9653Npvxkv [Mass/Vol]13.0 ng/mLNormal>4.7 [facility] on above:Order Comment: Specimen Type: BLOOD SPECIMENOrdering Facility: [facility] Address:[address] [place], [place] [address]Performed By: #### 2132-9, 2284-8 ####[facility] LABCLIA [id number] [place] [address] [place] AMERICAHCG ( test) Ql (U)on 47-54-2921Dzzyfjadqvehtg and review of laboratory resultsNormalNOMS HealthcarePreg Test, UrNegativeNegative NOMS HealthcareNOMS HealthcareIMMUNOGLOBULINS,IGG,IGA,IGMon 69-93-2583GeQ [Mass/Vol]171 mg/mJAacdrr03-706YaqpvboagFirelands Regional Medical Center [facility] on above:Order Comment: Specimen Type: BLOOD SPECIMENOrdering Facility: [facility] Address:[address] [place], [place] [address]Performed By: #### SERIMM ####[facility] LABCLIA [id number] [place] [address] [place] AMERICAIgG [Mass/Vol]476 mg/dLLow 700-1600[facility] on above:Order Comment: Specimen Type: BLOOD SPECIMENOrdering Facility: [facility] Address:[address] [place], [place] [address]Performed By: #### SERIMM ####[facility] LABCLIA [id number] [place] [address] [place] AMERICAIgM [Mass/Vol]373 mg/jAFbdk12-671RjclismxrFirelands Regional Medical Center South [facility] on above:Order Comment: Specimen Type: BLOOD SPECIMENOrdering Facility: [facility] Address:[address] [place], [place] [address]Performed By: #### SERIMM ####[facility] LABCLIA [id number] [place] [address] [place] [employer] binding capacity panelon 96-09-9795Yxkn [Mass/Vol]67 ug/dLNormal 41-186[facility] on above:Order Comment: Specimen Type: BLOOD SPECIMENOrdering Facility: [facility] Address:[address] [place], [place] [address]Performed By: #### 46132-8, 2275-08, 1987-09 ####[facility] LABCLIA [id number] [place] [id number] [place] AMERICAIron binding capacity [Mass/Vol] 399 ug/aJIcoe735-709YlfphpfwnFayette County Memorial HospitalComment on above:Order Comment: Specimen Type: BLOOD SPECIMENOrdering Facility: [facility] Address:[address] [place], [place] [id number] By: #### 53184-0, 2275-08, 1987-09 ####[facility] LABCLIA [id number] [place] [address] [place] AMERICAIron/TIBC [Molar ratio]16.8 % Tlddje26.0-57.0F[facility] County Memorial HospitalComment on above:Order Comment: Specimen Type: BLOOD SPECIMENOrdering Facility: [facility] Address:[address] [place], [place] [address]Performed By: #### 28767-3, 2275-08, 1987-09 ####[facility] LABIA [id number] [place] [address] [place] AMERICAUrinalysis macro (dipstick) panel (U)on 23-67-2420Uunrlmwvk, UANegativeNegative - 4(70) +++ mg/dLNOMS Healthcare Blood, [...] - 12 mg/dLNOMS HealthcareNOMS HealthcareVit B12 SerPl-mCncon 87-30-3073Ksedzjwwo (Vitamin B12) [Mass/Vol]607 pg/eYTasjjg351-8816Ogeqozufm Clinic ClevelandComment on above: Order Comment: Specimen Type: BLOOD SPECIMENOrdering Facility: [facility] Address:[address] [place], [place] [address]Performed By: #### 2132- 9, 2284-8 ####[facility] LABCLIA [id number] YAYONichole SORIANOManolo [place]78J[place]VRSXD[place] [address] [place] OF AMERICAOffice Visiton 03-08-2024 Follow-up [id number] Ariadna Haley 1980 F Date Provider Department Center 03/08/2024 Renny-CALOS ARCE [facility] Family History Problem Relation Age of Onset Heart failure Maternal Grandmother Heart attack Maternal Grandfather Family Status - Relation Status Age at Maternal Grandmother Maternal Grandfather Level of Service:29899 [place] OFFICE/OUTPATIENT NEW MODERATE MDM 45 MINUTESNormal The Jewish HospitalHCG ( test) [place].rapid Ql (U)Ordered By: Adolfo Kang on 65-79-6688IVN ( test) Ql (U)NegativeMetrohealth Parma Medical CenterECG 12 [place] 57-63-5203IAV revealed normal sinus rhythm CPAUniversity Hospitals TriPoint Medical Center Work Phone: CBC AUTO DIFFon 86-90-5920NMWY #0.1 103/ulNormal 0.0-0.1The [facility] HospitalComment on above:Performed By: #### UAMIC #### [facility] [address] [address] [address] Manad YorkBasophils/100 WBC (Bld)0.6 %Normal0.2-2.0The [facility] Comment on above:Performed By: #### UAMIC #### [facility] [address] [place] [address] Dr. Manda Shafer #0.1 103/ulNormal0.0-0.7The [facility] HospitalComment on above: Performed By: #### UAMIC #### [facility] [address] [place] [address] Dr. Manda Noonanosinophils/100 WBC (Bld)0.6 %Critically low0.9-7.0The [facility] HospitalComment on above:Performed By: #### UAMIC #### [facility] [address] [place] [address] Dr. Manda Noonanrythrocyte distribution width (RBC) [Ratio]14.6 %Zrujjn93.0-15.0 The [facility] HospitalComment on above:Performed By: #### UAMIC #### [facility] [address] [place] [address] Dr. Manda YorkHematocrit (Bld) [Volume fraction]43.4 %Rhlumo32.0-48.0The [facility] HospitalComment on above:Performed By: #### UAMIC #### [facility] [address] [place] [address] Dr. Manda YorkHemoglobin (Bld) [Mass/Vol]13.7 g/aBYjzxjq63.0-16.0The [facility] HospitalComment on above:Performed By: #### UAMIC #### [facility] [address] [place] [address] Dr. Manda Calderon #0.12 10e3/ulCritically high0.00-0.03The [facility] Comment on above:Performed By: #### UAMIC #### [facility] [address] [place] [address] Dr. Manda Calderon %0.8 %Critically high0.0-0.5The [facility] HospitalComment on above:Performed By: #### UAMIC #### [facility] [address] [place] [address] Dr. Manda Laguna #2.6 103/ulNormal1.2-3.8The [facility] HospitalComment on above:Performed By: #### UAMIC #### [facility] [address] [place] [address] Dr. Manda Bolañosmphocytes/100 WBC (Bld)18.3 %Critically low20.5-60.0The [facility] HospitalComment on above:Performed By: #### UAMIC #### [facility] [address] [place] [address] Dr. Manda Richards DIFF REQNONormalThe [facility] HospitalComment on above: Performed By: #### UAMIC #### [facility] [address] [place] [address] Dr. Manda Cardoso (RBC) [Entitic mass]29.0 jiZsyami46.7-34.0The [facility] HospitalComment on above:Performed By: #### UAMIC #### [facility] [address] [place] [address] Dr. Manda Cardoso (RBC) [Mass/Vol]31.6 g/yHCjpspp89.9-35.2The [facility] HospitalComment on above:Performed By: #### UAMIC #### [facility] [address] [place] [address] Dr. Manda Bradshaw (RBC) [Entitic vol]91.8 gCLjxfqp44.0-99.0The [facility] HospitalComment on above:Performed By: #### UAMIC #### [facility] [address] [place] [address] Dr. Manda Maciel #0.7 103/ulNormal0.3-0.8The [facility] HospitalComment on above:Performed By: #### UAMIC #### [facility] [address] [place] [address] Dr. Manda Coteocytes/100 WBC (Bld)5.1 %Normal1.7-12.0The [facility] Comment on above:Performed By: #### UAMIC #### [facility] [address] [place] [address] Dr. Manda Claudio #10.6 103/ulCritically high1.4-6.5The [facility] Comment on above:Performed By: #### UAMIC #### [facility] [address] [place] [address] Dr. Manda Longutrophils/100 WBC (Bld)74.6 %Kvihnd25.0-75.0The [facility] HospitalComment on above:Performed By: #### UAMIC #### [facility] [address] [place] [address] Dr. Manda YorkPlatelet mean volume (Bld) [Entitic vol]9.4 fLCritically low 9.5-13.5The [facility] HospitalComment on above:Performed By: #### UAMIC #### [facility] [address] [place] [address] Dr. Manda YorkPLT307 103/nkSvpiop967-571Jzj [facility] HospitalComment on above: Performed By: #### UAMIC #### [facility] [address] [place] [address] Dr. Manda YorkRBC4.73 106/ulNormal4.20-5.40The [facility] HospitalComment on above:Performed By: #### UAMIC #### [facility] [address] [place] [address] Dr. Manda YorkWBC14.2 103/ulCritically high4.0-11.0Fisher-Titus Medical CenterComment on above:Performed By: #### UAMIC #### [facility] [address] [place] [address] Dr. Manda YorkFREE T4on 21-91-6923Uupq T4 [Mass/Vol]1.31 ng/dLNormal0.76-1.46 The [facility] HospitalComment on above:Performed By: #### FT4 #### [facility] [address] [place] [address] Dr. Manda YorkGLYCOHEMOGLOBIN A1Con 30-89-0859IPY RECOMMENDATIONSEE BELOWNormal The [facility] HospitalComment on above:Result Comment: ADA RECOMMENDED LIMIT 4.0 - 6.0 ADA THERAPEUTIC TARGET < 7.0 ACTION SUGGESTED > 7.0Performed By: #### A1C #### [facility] [address] [place] [address] Dr. Manda YorkGlucose [Mass/Vol]120 mg/dLProMedica Defiance Regional HospitalComment on above:Performed By: #### A1C #### [facility] [address] [place] [address] Dr. Manda YorkHbA1c (Bld) [Mass fraction]5.8 %Normal4.5-6.2[facility]-Titus Medical CenterComment on above:Performed By: #### A1C #### [facility] [address] [place] [address] Dr. Manda Howe QUANT HCGon 82-38-4695EVB QUANT<1NormalThe [facility] Comment on above:Performed By: #### FT4 #### [facility] [address] [place] [address] Dr. Manda Renee RANGESEE BELOWProMedica Defiance Regional HospitalComment on above: Result Comment: 5-50 0.2-1 WEEK 50-500 1-2 WEEKS 100-5,000 2-3 WEEKS 500-10,000 3-4 WEEKS 1,000-50,000 4-5 WEEKS 10,000-100,000 5-6 WEEKS 15,000-200,000 6-8 WEEKS 10,000-100,000 2-3 MONTHSPerformed By: #### FT4 #### [facility] [address] [place] [address] Dr. Manda YorkPROTIMEon 93-55-1834CUW Coag (PPP) [Relative time]{INR}NormalFisher-Titus Medical CenterComment on above:Performed By: #### FT4 #### [facility] [address] [place] [address] Dr. Manda Bah GUIDELINESSEE [facility] Hospital - Southeast OhioComment on above:Result Comment: DESIRED INR: 2.0 - 3.0 CONDITIONS NOT LISTED BELOW 2.5 - 3.5 FOR PROSTHETIC HEART VALVE REPLACEMENT 2.5 - 3.5 RECURRENT THROMBOSIS Performed By: #### FT4 #### [facility] [address] [place] [address] [address] Manda YorkPT Coag (PPP) [Time]9.6 sNormal9.0-11.6The [facility] Comment on above:Performed By: #### FT4 #### [facility] [address] [place] [address] Dr. Manda Crews 04-77-8286gRDB Coag (Bld) [Time]28.2 wEoovcf36.3-36.2The [facility] HospitalComment on above:Performed By: #### FT4 #### [facility] [address] [place] [address] Dr. Manda Fowler 35-52-4352SAJ8.300 uIU/mLCritically low0.358-3.740The [facility] HospitalComment on above:Performed By: #### FT4 #### [facility] [address] [place] [address] Dr. Manda Post PELVIS TRANSVAGon 73-66-1227TC PELVIS TRANSVAGEXAMINATION: US PELVIS TRANSVAG HISTORY: Excessive [...] Electronically authenticated by: AURORA SHAIKH Date: 2022-09-24 17:50NormalThMercy Health [address] ACOG PANEL 2: 30 to 65on 09-18-2022..NormalThe Cotton HospitalComment on above:Result Comment: Performed at: WBPerformed By: #### FT4 #### [facility] [address] [place] [address] Dr. Manda Ceballos Gdln ACOG Tiquoxf08-15YntoteZphUniversity Hospitals Portage Medical Center on above:Performed By: #### FT4 #### [facility] [address] [place] [address] Dr. Manda YorkDIAGNOSIS:CommentSumma Health Wadsworth - Rittman Medical Center on above: Result Comment: NEGATIVE FOR INTRAEPITHELIAL LESION OR MALIGNANCY. Performed at: WBPerformed By: #### FT4 #### [facility] [address] [place] [address] Dr. Manda Lawson AptimaNegativeNormalNegativeThe [facility] on above:Result Comment: This nucleic acid amplification test detects fourteen high-risk HPV types (16,18,31,33,35,39,45,51,52,56,58,59,66,68) without differentiation. Performed at: =GPerformed By: #### FT4 #### [facility] [address] [place] [address] Dr. Manda YorkHPTara Genotype ReflexCommentSumma Health Wadsworth - Rittman Medical Center on above:Result Comment: Criteria not met, HPV Genotype not performed. Performed at: WBPerformed By: #### FT4 #### [facility] [address] [place] [address] Dr. Manda YorkMethodology:CommentSumma Health Wadsworth - Rittman Medical Center on above: Result Comment: This liquid based ThinPrep(R) pap test was screened with the use of an image guided system. Performed at: WBPerformed By: #### FT4 #### [facility] [address] [place] [address] Dr. Manda YorkNote:CommentSumma Health Wadsworth - Rittman Medical Center on above:Result Comment: The Pap smear is a screening test designed to aid in the detection of premalignant and malignant conditions of the uterine cervix. It is not a diagnostic procedure and should not be used as the sole means of detecting cervical cancer. Both false-positive and false-negative reports do occur. . Performed at: WBPerformed By: #### FT4 #### [facility] [address] [address] [address] Manda YorkPerformed by:CommentSumma Health Wadsworth - Rittman Medical Center on above: Result Comment: Charles Peters, Pump Installation And Servicer (ASCP) Performed at: WBPerformed By: #### FT4 #### [facility] [address] [address] [address] Manda YorkSpecimen adequacy:CommentSumma Health Wadsworth - Rittman Medical Center on above:Result Comment: Satisfactory for evaluation. Endocervical and/or squamous metaplastic cells (endocervical component) are present. Performed at: Performed By: #### FT4 #### [facility] [address] [address] [address] Manda YorkCytology Cervical or vaginal smear or scraping studyOrdered By: Hazel Torres on 75-81-8870GZXPPemiscot Memorial Health SystemsMG MAMM SCREEN 3D SELENE CADon 80-90-7783ED MAMM SCREEN 3D SELENE CADPatient: ARIADNA HALEY Exam Date: 09/01/2022 : 1980 Gender:F Ordering : DR MANUEL FERRIS . Admission #: [id number] Family : Order #: [id number] CLICK HERE TO VIEW EXAM RADIOLOGY REPORT [...] cancer at age 56. LOCATION: [facility] BREAST COMPOSITION: Scattered areas fibroglandular density. [...] by: Sayda Yusuf M.D. on 09/02/2022 at 12:32Pro[facility]ica Defiance Regional HospitalMRI KNEE RT WO CONon 37-79-5235QLM KNEE RT WO CONHISTORY: Right knee pain [...] Electronically authenticated by: MANUEL GOMEZ Date: 2022-04-01 08:24[facility] Regional HospitalPNEUMOCOCCAL IGG ABS, 23 SEROTYPESon 12-41-1936Ecufsmrrbbjt InterpretationSee NoteAccess Hospital Dayton. pneumoniae 1 IgG (S) [Mass/Vol]0.27 ug/mLCleveland ClinicS. pneumoniae 12 IgG (S) [Mass/Vol]0.08 ug/mLCleveland ClinicS. pneumoniae 14 IgG (S) [Mass/Vol]0.19 ug/mLCleveland ClinicS. pneumoniae 17 IgG (S) [Mass/Vol]1.72 ug/mLCleveland ClinicS. pneumoniae 19 IgG (S) [Mass/Vol]1.52 ug/mLCleveland ClinicS. pneumoniae 2 IgG (S) [Mass/Vol]0.44 ug/mL [facility]. pneumoniae 20 IgG (S) [Mass/Vol]1.53 ug/mLCleveland ClinicS. pneumoniae 22 IgG (S) [Mass/Vol]0.99 ug/mLCleveland ClinicS. pneumoniae 23 IgG (S) [Mass/Vol]0.14 ug/mLCleveland ClinicS. pneumoniae 3 IgG (S) [Mass/Vol]0.36 ug/mLCleveland ClinicS. pneumoniae 34 IgG (S) [Mass/Vol]5.77 ug/mLCleveland ClinicS. pneumoniae 4 IgG (S) [Mass/Vol]0.06 ug/mLCleveland ClinicS. pneumoniae 43 IgG (S) [Mass/Vol]0.93 ug/mLCleveland ClinicS. pneumoniae 5 IgG (S) [Mass/Vol]0.89 ug/mLCleveland ClinicS. pneumoniae 8 IgG (S) [Mass/Vol]0.58 ug/mL [facility]. pneumoniae 9 IgG (S) [Mass/Vol]0.4 ug/mLCleveland ClinicS. pneumoniae French type 15B IgG (S) [Mass/Vol]8.27 ug/mLCleveland ClinicS. pneumoniae French type 18C IgG (S) [Mass/Vol]0.39 ug/mLCleveland ClinicS. pneumoniae French type 19A IgG (S) [Mass/Vol]17.72 ug/mLCleveland ClinicS. pneumoniae French type 33F IgG (S) [Mass/Vol]3.04 ug/mLCleveland ClinicS. pneumoniae French type 6B IgG (S) [Mass/Vol]0.82 ug/mLCleveland ClinicS. pneumoniae French type 7F IgG (S) [Mass/Vol]0.34 ug/mLCleveland ClinicS. pneumoniae French type 9V IgG (S) [Mass/Vol]0.78 ug/mLCleveland ClinicXR KNEE RT 4V or >on 06-94-1682TR KNEE RT 4V or >IMAGES REVIEWED: XR KNEE RT 4V or > COMPARISON: None available. CLINICAL INDICATION: Injury of right knee FINDINGS/IMPRESSION: 1. No evidence of acute osseous abnormality of the right knee. 2. Nonspecific small suprapatellar effusion. 3. Mild anterior infrapatellar knee soft tissue swelling. Electronically authenticated by: KRISTINA GARRETT Date: 2022-03-21 16:[address] [place], [place] [address]DIPHTHER/TETANUS ABon 03-20-2022. diphtheriae IgG Qn (S)0.1 IU/mLCleveland ClinicC. tetani toxoid IgG IA Qn1 IU/mLCleveland ClinicIGA BLDon 58-24-1142YdC [Mass/Vol]182 mg/dL70 - 400 mg/dLChillicothe Va Medical CenterIGE BLDon 62-36-6098GxF Qn12.3 kU/l<114.0 kU/lCleveland ClinicIGGon 23-04-0970HsV [Mass/Vol]618 mg/qYFza326 - 1,600 mg/dLChillicothe Va Medical CenterIGMon 36-59-6975FqR [Mass/Vol]514 mg/oIPwqa87 - 230 mg/dLChillicothe Va Medical CenterImmunodeficiency panel FC (Bld)on 81-28-2078XD6 cells (Bld) [#/Vol]2841 cells/mZDcfl119 - 2,388 cells/uL [facility] Medical CenterCD3 cells/100 cells (Bld)81 %60 - 89 %[facility] CenterCD3+CD4+ (T4 helper) cells (Bld) [#/Vol]1621 cells/uL533 - 1,674 cells/uLChillicothe Va Medical Center CD3+CD4+ (T4 helper) cells/100 cells (Bld)46 %34 - 61 %[facility] CenterCD3+CD4+ (T4 helper) cells/CD3+CD8+ (T8 suppressor cells) cells (Bld) [# ratio]1.55 %1.10 - 3.25[facility] CenterCD3+CD8+ (T8 suppressor cells) cells (Bld) [#/Vol]1049 cells/zRYhpv185 - 958 cells/uLChicago ClinicCD3+CD8+ (T8 suppressor cells) cells/100 cells (Bld)30 %10 - 41 %[facility] CenterCD3-CD16+CD56+ (Natural killer) cells (Bld) [#/Vol]193 cells/uL102 - 565 cells/uLChillicothe Va Medical CenterCD3- CD16+CD56+ (Natural killer) cells/100 cells (Bld)5 %5 - 25 %[facility] CenterCD3- CD19+ cells (Bld) [#/Vol]475 cells/uL75 - 660 cells/uLChillicothe Va Medical CenterCD3-CD19+ cells/100 cells (Bld)13 %5 - 22 %[facility] CenterCB W Auto Differential panel (Bld)on [id number] (Bld) [#/Vol]0.07 10*3/uL<0.11 k/uLChillicothe Va Medical Center Basophils/100 WBC (Bld)0.6 %[facility] CenterDifferential cell count method Nom (Bld)AutoCleveland ClinicEosinophils (Bld) [#/Vol]0.18 10*3/uL<0.46 k/uL [facility] CenterEosinophils/100 WBC (Bld)1.6 %[facility] CenterErythrocyte distribution width (RBC) [Ratio]14.6 %11.5 - 15.0 %[facility] CenterHematocrit (Bld) [Volume fraction]40.5 %36.0 - 46.0 %[facility] CenterHemoglobin (Bld) [Mass/Vol]13.0 g/dL11.5 - 15.5 g/dLChillicothe Va Medical CenterImmature granulocytes (Bld) [#/Vol]0.06 10*3/uL<0.10 k/uLChillicothe Va Medical CenterImmature granulocytes/100 WBC (Bld) 0.5 %[facility] CenterLymphocytes (Bld) [#/Vol]2.97 10*3/uL1.00 - 4.00 k/uL [facility] CenterLymphocytes/100 WBC (Bld)26.9 %[facility] HealthH (RBC) [Entitic mass]28.4 pg26.0 - 34.0 pgClevelSt. Francis Medical CenterHC (RBC) [Mass/Vol]32.1 g/dL30.5 - 36.0 g/dLKettering HealthV (RBC) [Entitic vol]88.4 fL80.0 - 100.0 fLClevelunc health appalachian ClinicMonocytes (Bld) [#/Vol]0.79 10*3/uL<0.87 k/uLChillicothe Va Medical Center Monocytes/100 WBC (Bld)7.2 %[facility] CenterNeutrophils (Bld) [#/Vol]6.97 10*3/uL1.45 - 7.50 k/uLChillicothe Va Medical CenterNeutrophils/100 WBC (Bld)63.2 %[facility] CenterNucleated RBC (Bld) [#/Vol]<0.01 k/uLChillicothe Va Medical CenterNucleated RBC/100 WBC (Bld) [Ratio]0.0 /100 WBCChillicothe Va Medical CenterPlatelet mean volume (Bld) [Entitic vol]9.9 fL9.0 - 12.7 fLClevelunc health appalachian ClinicPlatelets (Bld) [#/Vol]314 10*3/uL150 - 400 k/uLChillicothe Va Medical CenterRBC (Bld) [#/Vol]4.58 10*6/uL3.90 - 5.20 m/uLChillicothe Va Medical CenterWBC (Bld) [#/Vol]11.04 10*3/uLHigh3.70 - 11.00 k/uLChillicothe Va Medical Center ECHOCARDIO M/2D COMPLETEon [id number] M/2D COMPLETEPatient: ARIADNA HALEY Exam Date: 03/12/2022 : 1980 Gender:F Ordering : DR MANUEL FERRIS . Admission #: [id number] Family : Order #: [id number] CLICK HERE TO VIEW EXAM ECHOCARDIOGRAM REPORT [...] by: Calos Arce M.D. on 03/16/2022 at 16:47[facility] HospitalINSULINon 97-57-4098Uavvsqj72.8 uIU/mLNormal2.6-24.9The [facility] HospitalComment on above:Performed By: #### CBC #### [facility] [address] [place] [address] Dr. Manda Bruce AUTO DIFFon [id number] #0.1 103/ulNormal0.0-0.1The [facility] HospitalComment on above:Performed By: #### CBC #### [facility] [address] [place] [address] Dr. Manda Stroudsophils/100 WBC (Bld)0.4 %Normal0.2-2.0The [facility] Comment on above:Performed By: #### CBC #### [facility] [address] [address] [address] Manda Shafer #0.2 103/ulNormal0.0-0.7The [facility] HospitalComment on above: Performed By: #### CBC #### [facility] [address] [place] [address] Dr. Manda Noonanosinophils/100 WBC (Bld)1.2 %Normal0.9-7.0The [facility] Comment on above:Performed By: #### CBC #### [facility] [address] [place] [address] Dr. Manda Noonanrythrocyte distribution width (RBC) [Ratio]14.6 %Ybqhhk39.0-15.0 The [facility] HospitalComment on above:Performed By: #### CBC #### [facility] [address] [place] [address] Dr. Manda YorkHematocrit (Bld) [Volume fraction]39.2 %Qbpcem23.0-48.0The [facility] HospitalComment on above:Performed By: #### CBC #### [facility] [address] [place] [address] Dr. Manda YorkHemoglobin (Bld) [Mass/Vol]12.7 g/wQExidfi62.0-16.0The [facility] HospitalComment on above:Performed By: #### CBC #### [facility] [address] [place] [address] Dr. Manda Calderon #0.06 10e3/ulCritically high0.00-0.03The [facility] Comment on above:Performed By: #### CBC #### [facility] [address] [place] [address] Dr. Manda Calderon %0.5 %Normal0.0-0.5The [facility] HospitalComment on above: Performed By: #### CBC #### [facility] [address] [place] [address] Dr. Manda BolañosMPH #3.7 103/ulNormal1.2-3.8The [facility] HospitalComment on above:Performed By: #### CBC #### [facility] [address] [place] [address] Dr. Manda Bolañosmphocytes/100 WBC (Bld)31.0 %Eakfwl87.5-60.0The [facility] HospitalComment on above:Performed By: #### CBC #### [facility] [address] [place] [address] Dr. Manda Dela CruzUAL DIFF REQNONormalThe [facility] HospitalComment on above: Performed By: #### CBC #### [facility] [address] [place] [address] Dr. Manda Cardoso (RBC) [Entitic mass]28.9 yyAiamys09.7-34.0The [facility] HospitalComment on above:Performed By: #### CBC #### [facility] [address] [place] [address] Dr. Manda Cardoso (RBC) [Mass/Vol]32.4 g/kYDdypon37.9-35.2The [facility] HospitalComment on above:Performed By: #### CBC #### [facility] [address] [place] [address] Dr. Manda Cardoso (RBC) [Entitic vol]89.1 bEEygzao56.0-99.0The [facility] HospitalComment on above:Performed By: #### CBC #### [facility] [address] [place] [address] Dr. Manda Maciel #0.7 103/ulNormal0.3-0.8The [facility] HospitalComment on above:Performed By: #### CBC #### [facility] [address] [place] [address] Dr. Manda Coteocytes/100 WBC (Bld)5.8 %Normal1.7-12.0[facility] Comment on above:Performed By: #### CBC #### [facility] [address] [place] [address] Dr. Manda Claudio #7.3 103/ulCritically high1.4-6.5The [facility] Comment on above:Performed By: #### CBC #### [facility] [address] [address] [address] Manda Longutrophils/100 WBC (Bld)61.1 %Jwvlsp04.0-75.0The [facility] HospitalComment on above:Performed By: #### CBC #### [facility] [address] [address] [address] Manda Ferreiralet mean volume (Bld) [Entitic vol]9.7 fLNormal9.5-13.5The [facility] HospitalComment on above:Performed By: #### CBC #### [facility] [address] [place] [address] Dr. Manda YorkPLT297 103/hrNszspk056-315Jsz [facility] HospitalComment on above: Performed By: #### CBC #### [facility] [address] [place] [address] Dr. Manda YorkRBC4.40 106/ulNormal4.20-5.40The [facility] HospitalComment on above:Performed By: #### CBC #### [facility] [address] [place] [address] Dr. Manda YorkWBC12.0 103/ulCritically high4.0-11.0The [facility] HospitalComment on above:Performed By: #### CBC #### [facility] [address] [place] [address] Dr. Manda Hilton THYROXINE INDEX T7on 94-56-5343UJB4.74Ayinrn1.30-4.50The [facility] HospitalComment on above:Performed By: #### UAMIC #### [facility] [address] [place] [address] Dr. Manda YorkT3U34.0 %Oizbur28.0-39.0The [facility] HospitalComment on above: Performed By: #### UAMIC #### [facility] [address] [place] [address] Dr. Manda YorkT4 [Mass/Vol]11.20 ug/dLNormal4.80-13.90The [facility] Comment on above:Performed By: #### UAMIC #### [facility] [address] [address] [address] Manda YorkGLYCOHEMOGLOBIN A1Con 66-69-1710LTG RECOMMENDATIONSEE BELOWOhiohealth Doctors HospitalComment on above:Result Comment: ADA RECOMMENDED LIMIT 4.0 - 6.0 ADA THERAPEUTIC TARGET < 7.0 ACTION SUGGESTED > 7.0Performed By: #### NURIS THYLC #### [facility] [address] [place] [address] Dr. Manda YorkGlucose [Mass/Vol]117 mg/dLNoToledo HospitalComment on above:Performed By: #### NURIS THYLC #### [facility] [address] [place] [address] Dr. Manda YorkHbA1c (Bld) [Mass fraction]5.7 %Normal4.5-6.2The [facility] HospitalComment on above:Performed By: #### NURIS THYLC #### [facility] [address] [place] [address] Dr. Manda Garcia [id number] [Mass/Vol]61.0 ug/tFGugemt99.0-170.0The [facility] HospitalComment on above:Performed By: #### CBC #### [facility] [address] [place] [address] Dr. Manda YorkLIPID PROFILEon 89-83-2617RTBT-HDL RATIO NORMSEE BELOWProMedica Defiance Regional HospitalComment on above:Result Comment: 3.3 - 4.4 LOW RISK 4.4 - 7.1 AVERAGE RISK 7.1 - 11.0 MODERATE RISK >11.0 HIGH RISKPerformed By: #### UAMIC #### [facility] [address] [place] [address] Dr. Manda YorkCholesterol [Mass/Vol]260 mg/dLCritically high<=200The [facility] HospitalComment on above:Performed By: #### UAMIC #### [facility] [address] [place] [address] Dr. Yilan ChangCholesterol in HDL [Mass/Vol]38 mg/dLCritically zlw85-53MzdOhioHealth Hardin Memorial Hospital on above:Performed By: #### UAMIC #### [facility] [address] [place] [address] Dr. Manda YorkCholesterol in LDL [Mass/Vol]170.8 mg/dLProMedica Defiance Regional HospitalCommclaren northern [place] on above:Performed By: #### UAMIC #### [facility] [address] [place] [address] Dr. Manda Carroll.total/Cholesterol in HDL [Mass ratio]6.8 {ratio} NormalOhioHealth Hardin Memorial Hospital on above:Performed By: #### UAMIC #### [facility] [address] [place] [address] Dr. Manda Marte NORMAL> or = 60 mg/dl - LOW CARDIOVASCULAR RISK <40 mg/dl - HIGH CARDIOVASCULAR RISKProMedica Defiance Regional HospitalComment on above:Performed By: #### UAMIC #### [facility] [address] [place] [address] Dr. Manda Zamora CALC NORMALSEE BELOWProMedica Defiance Regional HospitalCommclaren northern [place] on above:Result Comment: <100 mg/dl OPTIMAL 100 - 129 mg/dl NEAR OR ABOVE OPTIMAL 130 - 159 mg/dl BORDERLINE HIGH 160 - 189 mg/dl HIGH >190 mg/dl VERY HIGH Performed By: #### UAMIC #### [facility] [address] [place] [address] Dr. Manda YorkTriglyceride [Mass/Vol]256 mg/dLCritically high<=150[facility] on above:Performed By: #### UAMIC #### [facility] [address] [place] [address] Dr. Manda YorkVLDL CALC51.2 mg/dLProMedica Defiance Regional HospitalComment on above: Performed By: #### UAMIC #### [facility] [address] [place] [address] Dr. Manda YorkPROF 14(COMP METB)on 52-77-0034Fettdjw [Mass/Vol]3.8 g/dLNormal 3.4-5.0The [facility] HospitalComment on above:Performed By: #### UAMIC #### [facility] [address] [place] [address] Dr. Manda YorkAlbumin/Globulin [Mass ratio]1.0 {ratio}NormalThe [facility] HospitalComment on above:Performed By: #### UAMIC #### [facility] [address] [address] [address] Manda Toney [Catalytic activity/Vol]66 U/WAbbrbe05-615Axn [facility] HospitalComment on above:Performed By: #### UAMIC #### [facility] [address] [place] [address] Dr. Manda Person [Catalytic activity/Vol]27 U/OWdsjfz81-92Cdp [facility] HospitalComment on above:Performed By: #### UAMIC #### [facility] [address] [place] [address] Dr. Manda Loo gap [Moles/Vol]11.8 mmol/LNormalThe [facility] Comment on above:Performed By: #### UAMIC #### [facility] [address] [place] [address] Dr. Manda YorkAST [Catalytic activity/Vol]9 U/LCritically vdp09-29Kiw [facility] HospitalComment on above:Performed By: #### UAMIC #### [facility] [address] [place] [address] Dr. Manda YorkBilirubin [Mass/Vol]0.2 mg/dLNormal0.2-1.0The [facility] Comment on above:Performed By: #### UAMIC #### [facility] [address] [place] [address] Dr. Manda YorkCalcium [Mass/Vol]9.1 mg/dLNormal8.5-10.1The [facility] Comment on above:Performed By: #### UAMIC #### [facility] [address] [place] [address] Dr. Manda YorkChloride [Moles/Vol]101 mmol/NVpiqqt24-000Pvx [facility] Comment on above:Performed By: #### UAMIC #### [facility] [address] [address] [address] Manda YorkCO2 [Moles/Vol]26.1 mmol/NZfidon47.0-32.0The [facility] Comment on above:Performed By: #### UAMIC #### [facility] [address] [address] [address] Manda YorkCreatinine [Mass/Vol]0.80 mg/dLNormal0.55-1.02[facility] Medical CenterComment on above:Performed By: #### UAMIC #### [facility] [address] [address] [address] Manda NoonanGFR-AF CYMRAES>60Normal>=60The [facility] HospitalComment on above:Performed By: #### UAMIC #### [facility] [address] [address] [address] Manda NoonanGFR-NON AF CYMRAES>60Normal>=60The [facility] HospitalComment on above:Performed By: #### UAMIC #### [facility] [address] [address] [address] Manda YorkGlobulin (S) [Mass/Vol]3.8 g/dLNormalThe [facility] HospitalComment on above:Performed By: #### UAMIC #### [facility] [address] [address] [address] Manda YorkGlucose [Mass/Vol]93 mg/uCGibewp58-179Fpw [facility] Comment on above:Performed By: #### UAMIC #### [facility] [address] [address] [address] Manda YorkPotassium [Moles/Vol]3.9 mmol/LNormal3.5-5.1The [facility] Comment on above:Performed By: #### UAMIC #### [facility] [address] [address] [address] Manda YorkProtein [Mass/Vol]7.6 g/dLNormal6.4-8.2The [facility] Comment on above:Performed By: #### UAMIC #### [facility] [address] [address] [address] Manda YorkSodium [Moles/Vol]135 mmol/LCritically ouu394-088Qfd [facility] HospitalComment on above:Performed By: #### UAMIC #### [facility] [address] [address] [address] Manda YorkUrea nitrogen [Mass/Vol]10.0 mg/dLNormal7.0-18.0The [facility] HospitalComment on above:Performed By: #### UAMIC #### [facility] [address] [address] [address] Manda YorkUrea nitrogen/Creatinine [Mass ratio]12.5 mg/mgNormalThe [facility] HospitalComment on above:Performed By: #### UAMIC #### [facility] [address] [address] [address] Manda Fowler 49-53-5196AMA9.610 uIU/mLNormal0.358-3.740The [facility] HospitalComment on above:Performed By: #### UAMIC #### [facility] [address] [place] [address] Dr. Manda YorkB2 MICROGLOBULIN [facility] 02-29-3548Pkbq-2-Microglobulin [Mass/Vol]1.8 ug/mL0.8 - 2.4 mg/LCleveland ClinicFERRITIN BLDon 86-30-9057Fatveqva [Mass/Vol] 33.2 ng/mL14.7 - 205.1 ng/mLCleveland ClinicFOLATE SERUMon 77-10-6428Mvqdyp [Mass/Vol]6.6 ng/mL>4.7 ng/mLCleveland ClinicIron and Iron binding capacity panelon 39-83-3716Dlgj [Mass/Vol]49 ug/dL41 - 186 ug/dLCleveland ClinicIron binding capacity [Mass/Vol]392 ug/oCHfhd794 - 386 ug/dLCleveland ClinicIron/TIBC [Molar ratio]12.5 %Low15.0 - 57.0 %[facility] ClinicCBC W Auto Differential panel (Bld)on 74-06-9815Qcuarmgkv (Bld) [#/Vol]0.07 10*3/uL<0.11 k/uLChillicothe Va Medical CenterBasophils/100 WBC (Bld)0.6 %[facility] CenterDifferential cell count method Nom (Bld)AutoCleveland ClinicEosinophils (Bld) [#/Vol]0.19 10*3/uL<0.46 k/uL [facility] CenterEosinophils/100 WBC (Bld)1.7 %[facility] CenterErythrocyte distribution width (RBC) [Ratio]14.7 %11.5 - 15.0 %[facility] CenterHematocrit (Bld) [Volume fraction]40.0 %36.0 - 46.0 %[facility] CenterHemoglobin (Bld) [Mass/Vol]13.0 g/dL11.5 - 15.5 g/dLChillicothe Va Medical CenterImmature granulocytes (Bld) [#/Vol]0.07 10*3/uL<0.10 k/uLChillicothe Va Medical CenterImmature granulocytes/100 WBC (Bld) 0.6 %[facility] CenterLymphocytes (Bld) [#/Vol]3.31 10*3/uL1.00 - 4.00 k/uL [facility] CenterLymphocytes/100 WBC (Bld)30.2 %[facility]tering HealthH (RBC) [Entitic mass]28.9 pg26.0 - 34.0 pgCleveland Kittson Memorial HospitalHC (RBC) [Mass/Vol]32.5 g/dL30.5 - 36.0 g/dLKettering HealthV (RBC) [Entitic vol]88.9 fL80.0 - 100.0 fLCleveland ClinicMonocytes (Bld) [#/Vol]0.70 10*3/uL<0.87 k/uLChillicothe Va [facility] Center Monocytes/100 WBC (Bld)6.4 %[facility] CenterNeutrophils (Bld) [#/Vol]6.63 10*3/uL1.45 - 7.50 k/uLCleTriHealth Bethesda North HospitalNeutrophils/100 WBC (Bld)60.5 %[facility] CenterNucleated RBC (Bld) [#/Vol]<0.01 k/uLChillicothe Va Medical CenterNucleated RBC/100 WBC (Bld) [Ratio]0.0 /100 WBCChillicothe Va Medical CenterPlatelet mean volume (Bld) [Entitic vol]9.6 fL9.0 - 12.7 fLCleveland ClinicPlatelets (Bld) [#/Vol]355 10*3/uL150 - 400 k/uLChillicothe Va Medical CenterRBC (Bld) [#/Vol]4.50 10*6/uL3.90 - 5.20 m/uLChillicothe Va Medical CenterWBC (Bld) [#/Vol]10.97 10*3/uL3.70 - 11.00 k/uLChillic[facility] Calcium.ionized [Moles/Vol]on 68-43-2784Zbcisza.ionized (Bld) [Mass/Vol]1.26 mmol/L1.08 - 1.30 mmol/LCleveland ClinicCalcium.ionized adjusted to pH 7.4 (Bld) [Moles/Vol]1.25 mmol/L1.08 - 1.30 mmol/LCleveland ClinicComprehensive metabolic 2000 panelon 92-77-8306Chsqgmk [Mass/Vol]4.3 g/dL3.9 - 4.9 g/dLChillicothe [facility] Center ALP [Catalytic activity/Vol]70 U/L34 - 123 U/LCleveland ClinicALT [Catalytic activity/Vol]26 U/L7 - 38 U/LCleveland ClinicAnion gap [Moles/Vol]7 mmol/LLow9 - 18 mmol/LCleveland ClinicAST [Catalytic activity/Vol]12 U/LLow13 - 35 U/L [facility] CenterBilirubin [Mass/Vol]0.2 mg/dL0.2 - 1.3 mg/dLChillicothe [facility] Calcium [Mass/Vol]9.3 mg/dL8.5 - 10.2 mg/dLChillicothe Va Medical CenterChloride [Moles/Vol] 103 mmol/L97 - 105 mmol/LCleveland ClinicCO2 [Moles/Vol]28 mmol/L22 - 30 mmol/L [facility] CenterCreatinine [Mass/Vol]0.69 mg/dL0.58 - 0.96 mg/dLChillicothe [facility] Center Estimated Glomerular Filtration Nfbz266 mL/min/1.73m>=60 mL/min/1.73mCleveland Children'S MinnesotaGlucose [Mass/Vol]100 mg/cEWwnr77 - 99 mg/dLCleTriHealth Bethesda North HospitalPotassium [Moles/Vol]3.9 mmol/L3.7 - 5.1 mmol/LCleveland ClinicProtein [Mass/Vol]7.0 g/dL 6.3 - 8.0 g/dLClecleveland clinic children's hospital for rehabilitation ClinicSodium [Moles/Vol]138 mmol/L136 - 144 mmol/L [facility] CenterUrea nitrogen [Mass/Vol]12 mg/dL7 - 21 mg/dLChillicothe Va Medical CenterLD LACTATE DEHYDROon 53-12-6387SNU [Catalytic activity/Vol]135 U/L135 - 214 U/L [facility] CenterPHOSPHORUS INORGANICon 13-41-5099Wiefifkzu [Mass/Vol]3.2 mg/dL 2.7 - 4.8 mg/dLChillicothe Va Medical CenterURIC ACID BLOODon 51-19-9441Fcjjy [Mass/Vol]5.2 mg/dL2.5 - 6.6 mg/dLChillicothe Va Medical CenterIMMUNOGLOBULINS IGA/IGM/IGG/IGE QUANTITAon 88-85-5276Fbezspepwbpchy A, Qn, Torai066 mg/fKDaplin89-451IrxFisher-Titus Medical Center Comment on above:Result Comment: Performed at: CBPerformed By: #### LEANN LAWLERC #### [facility] [address] [address] [address] Manda YorkImmunoglobulin E, Total10 IU/mLNormal6-495The [facility] Comment on above:Result Comment: Performed at: BNPerformed By: #### NURIS THYLC #### [facility] [address] [address] [address] Manda YorkImmunoglobulin G, Qn, Jjdnh158 mg/yWPhtemc539-6608YccFisher-Titus Medical CenterComment on above:Result Comment: Performed at: CBPerformed By: #### SLEAl THYLC #### [facility] [address] [address] [address] Manda YorkImmunoglobulin M, Qn, Rpdcn399 mg/dLCritically xwwu28-974Yqt [facility] HospitalComment on above:Result Comment: Performed at: CBPerformed By: #### NURIS THYLC #### [facility] [address] [place] [address] Dr. Manda YorkANA by IFAon 79-81-9116Epeatlpbzht Antibodies, IFANegativeNormal The [facility] HospitalComment on above:Result Comment: Negative <1:80 Borderline 1:80 Positive >1:80 ICAP nomenclature: AC-0 For more information about Hep-2 cell patterns use ANApatterns.org, the official website for the International Consensus on Antinuclear Antibody (CHRISTIAN) Patterns (ICAP).Performed By: #### LEANN LAWLERC #### [facility] [address] [place] [address] Dr. Manda YorkTHYROID ANTIBODIESon 50-35-2172Eoiyaycijhsmv Antibody<1.0Normal 0.0-0.9The [facility] HospitalComment on above:Result Comment: Thyroglobulin Antibody measured by [employer] Store MethodologyPerformed By: #### FT4 #### [facility] [address] [place] [address] Dr. Manda YorkThyroid Peroxidase (TPO) Ab<5Fgdvbb8-38VntFisher-Titus Medical Center Comment on above:Performed By: #### FT4 #### [facility] [address] [place] [address] Dr. Manda YrokPROTEIN ELECTROPHERESISon 81-39-0686Dazwxzi [Mass/Vol]3.2 g/dL Normal2.9-4.4The [facility] HospitalComment on above:Performed By: #### FT4 #### [facility] [facility] [address] [place] [address] Dr. Manda YorkAlbumin/Globulin [Mass ratio]1.0 {ratio}Normal0.7-1.7The [facility] HospitalComment on above:Performed By: #### FT4 #### [facility] [address] [place] [address] Dr. Manda YorkLlzaqYibot-0-Jrrpkmeq0.2 g/dLNormal0.0-0.4The [facility] HospitalComment on above:Performed By: #### FT4 #### [facility] [address] [place] [address] Dr. Manda YorkFjlrnLorta-5-Pronahlf8.9 g/dLNormal0.4-1.0The [facility] HospitalComment on above:Performed By: #### FT4 #### [facility] [address] [place] [address] Dr. Manda YorkBeta Globulin1.2 g/dLNormal0.7-1.3The [facility] HospitalComment on above:Performed By: #### FT4 #### [facility] [address] [place] [address] Dr. Manda YorkGamma Globulin0.9 g/dLNormal0.4-1.8The [facility] HospitalComment on above:Performed By: #### FT4 #### [facility] [address] [place] [address] Dr. Manda YorkGlobulin (S) [Mass/Vol]3.2 g/dLNormal2.2-3.9The [facility] Comment on above:Performed By: #### FT4 #### [facility] [address] [place] [address] Dr. Manda YorkM-SpikeNot ObservedNormalNot ObservedFisher-Titus Medical CenterComment on above:Performed By: #### FT4 #### [facility] [address] [place] [address] Dr. Manda Mares.NormalThe [facility] HospitalComment on above:Performed By: #### FT4 #### [facility] [address] [place] [address] Dr. Manda Oswald note:CommentNormalThe [facility] HospitalComment on above: Result Comment: Protein electrophoresis scan will follow via computer, mail, or hydrogen power plant manager delivery.Performed By: #### FT4 #### [facility] [address] [place] [address] Dr. Manda YorkProtein [Mass/Vol]6.4 g/dLNormal6.0-8.5ThLutheran Hospital Comment on above:Performed By: #### FT4 #### [facility] [address] [place] [address] Dr. Manda Echavarria PROFILE Aon 72-75-1973Ocac-DNA (DS) Ab Qn9 IU/mLNormal0-9Fisher-Titus Medical CenterComment on above:Result Comment: Negative <5 Equivocal 5 - 9 Positive >9Performed By: #### SLEA, THYLC #### [facility] [address] [place] [address] Dr. Manda YorkAntichromatin Antibodies<0.3Lpdtxt0.0-0.9The [facility] Comment on above:Performed By: #### SLEA, THYLC #### [facility] [address] [place] [address] Dr. Manda Sanches Latex Turbid.<10.0Normal<14.0[facility]itus Medical CenterComment on above:Performed By: #### SLEA, THYLC #### [facility] [address] [place] [address] Dr. Manda Chowdary Antibodies<0.1Ghpfag1.0-0.9The [facility] HospitalComment on above:Performed By: #### SLEA, THYLC #### [facility] [address] [place] [address] Dr. Manda Harmon Anti-SS-A<0.2Zasogx3.0-0.9The [facility] HospitalComment on above:Performed By: #### SLEA, THYLC #### [facility] [address] [place] [address] Dr. Manda Harmon Anti-SS-B<0.5Tjovlt1.0-0.9The [facility] HospitalComment on above:Performed By: #### SLEA, THYLC #### [facility] [address] [place] [address] Dr. Manda Lloyd Antibodies<0.3Ydzola9.0-0.9The [facility] HospitalComment on above:Performed By: #### SLEA, THYLC #### [facility] [address] [place] [address] Dr. Manda YorkANTISTREPTOLYSIN O AB (ASO)on 86-93-8786Vidvfddmklfrecvq O Ab49.6 IU/mLNormal0.0-200.0The [facility] HospitalComment on above:Performed By: #### ASOAB #### [facility] [address] [place] [address] Dr. Manda WhalenROALBUMIN URINEon 03-69-3133Ypuqeaw, Urine<3.0NormalNot Estab. The [facility] HospitalComment on above:Result Comment: Verified by repeat analysisPerformed By: #### CBC #### [facility] [address] [place] [address] Dr. Manda Armando4, T3U, FTI LABCORPon 70-90-8398Xvzs Thyroxine Index2.6Normal 1.2-4.9The [facility] HospitalComment on above:Performed By: #### LUIGI LAWLER #### [facility] [address] [place] [address] Dr. Manda YorkT3 Pbmxgj20 %Zstddh63-66Rrq [facility] HospitalComment on above: Performed By: #### NURIS THYLC #### [facility] [address] [place] [address] Dr. Manda Moses [Mass/Vol]9.9 ug/dLNormal4.5-12.0The [facility] HospitalComment on above:Performed By: #### LEANN LAWLERC #### [facility] [address] [place] [address] Dr. Manda Bruce AUTO DIFFon 81-65-9629DXYP #0.1 103/ulNormal0.0-0.1The [facility] HospitalComment on above:Performed By: #### UAMIC #### [facility] [address] [place] [address] Dr. Manda YorkBasophils/100 WBC (Bld)0.6 %Normal0.2-2.0The [facility] Comment on above:Performed By: #### UAMIC #### [facility] [address] [place] [address] Dr. Holman ChangEO #0.3 103/ulNormal0.0-0.7The [facility] HospitalComment on above: Performed By: #### UAMIC #### [facility] [address] [place] [address] Dr. Manda Noonanosinophils/100 WBC (Bld)3.4 %Normal0.9-7.0The [facility] Comment on above:Performed By: #### UAMIC #### [facility] [address] [place] [address] Dr. Manda Noonanrythrocyte distribution width (RBC) [Ratio]14.6 %Rnydyo37.0-15.0 The [facility] HospitalComment on above:Performed By: #### UAMIC #### [facility] [address] [place] [address] Dr. Manda YorkHematocrit (Bld) [Volume fraction]39.1 %Nyqnir58.0-48.0The [facility] HospitalComment on above:Performed By: #### UAMIC #### [facility] [address] [place] [address] Dr. Manda YorkHemoglobin (Bld) [Mass/Vol]12.4 g/cYHuojxf40.0-16.0The [facility] HospitalComment on above:Performed By: #### UAMIC #### [facility] [address] [place] [address] Dr. Manda Calderon #0.03 10e3/ulNormal0.00-0.03The [facility] HospitalComment on above:Performed By: #### UAMIC #### [facility] [address] [place] [address] Dr. Manda Calderon %0.3 %Normal0.0-0.5The [facility] HospitalComment on above: Performed By: #### UAMIC #### [facility] [address] [place] [address] Dr. Manda KasperH #3.6 103/ulNormal1.2-3.8The [facility] HospitalComment on above:Performed By: #### UAMIC #### [facility] [address] [place] [address] Dr. Manda Bolañosmphocytes/100 WBC (Bld)39.9 %Cosoae94.5-60.0The [facility] HospitalComment on above:Performed By: #### UAMIC #### [facility] [address] [place] [address] Dr. Manda Richards DIFF REQNONormalThe [facility] HospitalComment on above: Performed By: #### UAMIC #### [facility] [address] [place] [address] Dr. Manda Cardoso (RBC) [Entitic mass]28.4 xyJxpyti26.7-34.0The [facility] HospitalComment on above:Performed By: #### UAMIC #### [facility] [address] [place] [address] Dr. Manda Cardoso (RBC) [Mass/Vol]31.7 g/zMOdjofo51.9-35.2The [facility] HospitalComment on above:Performed By: #### UAMIC #### [facility] [address] [place] [address] Dr. Manda Cardoso (RBC) [Entitic vol]89.7 gQDguvpo29.0-99.0The [facility] HospitalComment on above:Performed By: #### UAMIC #### [facility] [address] [place] [address] Dr. Manda Maciel #0.7 103/ulNormal0.3-0.8The [facility] HospitalComment on above:Performed By: #### UAMIC #### [facility] [address] [place] [address] Dr. Manda Coteocytes/100 WBC (Bld)7.3 %Normal1.7-12.0The [facility] Comment on above:Performed By: #### UAMIC #### [facility] [address] [place] [address] Dr. Manda Claudio #4.4 103/ulNormal1.4-6.5The [facility] HospitalComment on above:Performed By: #### UAMIC #### [facility] [address] [place] [address] Dr. Manda YorkNeutrophils/100 WBC (Bld)48.5 %Tafsbq12.0-75.0The [facility] Hospitalment on above:Performed By: #### UAMIC #### [facility] [address] [place] [address] Dr. Manda YorkPlatelet mean volume (Bld) [Entitic vol]10.1 fLNormal9.5-13.5The [facility] HospitalComment on above:Performed By: #### UAMIC #### [facility] [address] [place] [address] Dr. Manda YorkPLT310 103/mcUoukac411-561Rwo [facility] on above: Performed By: #### UAMIC #### [facility] [address] [place] [address] Dr. Manda YorkRBC4.36 106/ulNormal4.20-5.40The [facility] HospitalComment on above:Performed By: #### UAMIC #### [facility] [address] [place] [address] Dr. Manda YorkWBC9.0 103/ulNormal4.0-11.0The [facility] on above: Performed By: #### UAMIC #### [facility] [address] [place] [address] Dr. Manda YorkCROwen 25-15-4457UUS [Mass/Vol]mg/LNormal<=1.0The [facility] on above:Performed By: #### UAMIC #### [facility] [address] [place] [address] Dr. Manda YorkCULTKEILA URINEon [id number] URINECulture Observations: LIGHT GROWTH OF MIXED GENITAL AMBER. NO POTENTIAL PATHOGENS SEEN.NormalThe [facility] HospitalComment on above:Performed By: #### CBC #### [facility] [address] [place] [address] Dr. Manda YorkPROF 14(COMP METB)on 55-87-3772Xqkzswz [Mass/Vol]3.5 g/dLNormal 3.4-5.0The [facility] HospitalComment on above:Performed By: #### UAMIC #### [facility] [address] [place] [address] Dr. Manda YorkAlbumin/Globulin [Mass ratio]1.0 {ratio}NormalThe [facility] HospitalComment on above:Performed By: #### UAMIC #### [facility] [address] [place] [address] Dr. Manda Toney [Catalytic activity/Vol]71 U/CQkiiup28-526Gyl [facility] HospitalComment on above:Performed By: #### UAMIC #### [facility] [address] [place] [address] Dr. Manda Person [Catalytic activity/Vol]46 U/CAaavbz54-60Kxn [facility] HospitalComment on above:Performed By: #### UAMIC #### [facility] [address] [place] [address] Dr. Manda Loo gap [Moles/Vol]11.6 mmol/LNormalThe [facility] Comment on above:Performed By: #### UAMIC #### [facility] [address] [place] [address] Dr. Manda Pillai [Catalytic activity/Vol]15 U/AIluqjz13-17Tve [facility] HospitalComment on above:Performed By: #### UAMIC #### [facility] [address] [place] [address] Dr. Manda YorkBilirubin [Mass/Vol]0.2 mg/dLNormal0.2-1.0The [facility] Comment on above:Performed By: #### UAMIC #### [facility] [address] [place] [address] Dr. Manda YorkCalcium [Mass/Vol]8.7 mg/dLNormal8.5-10.1The [facility] Comment on above:Performed By: #### UAMIC #### [facility] [address] [place] [address] Dr. Manda YorkChloride [Moles/Vol]104 mmol/VQdwqic03-830[facility] Comment on above:Performed By: #### UAMIC #### [facility] [address] [address] [address] Manda YorkCO2 [Moles/Vol]25.1 mmol/DEguijw53.0-32.0[facility] Comment on above:Performed By: #### UAMIC #### [facility] [address] [address] [address] Manda YorkCreatinine [Mass/Vol]0.80 mg/dLNormal0.55-1.02[facility] CenterComment on above:Performed By: #### UAMIC #### [facility] [address] [place] [address] Dr. Manda NoonanGFR-AF CYMRAES>60Normal>=60The [facility] HospitalComment on above:Performed By: #### UAMIC #### [facility] [address] [address] [address] Manda Sánchez-NON AF CYMRAES>60Normal>=60[facility] CenterComment on above:Performed By: #### UAMIC #### [facility] [address] [address] [address] Manda YorkGlobulin (S) [Mass/Vol]3.6 g/dLNormalThe [facility] HospitalComment on above:Performed By: #### UAMIC #### [facility] [address] [address] [address] Manda YorkGlucose [Mass/Vol]92 mg/hNTqkfgy36-809NpeFisher-Titus Medical Center Comment on above:Performed By: #### UAMIC #### [facility] [address] [address] [address] Manda YorkPotassium [Moles/Vol]3.7 mmol/LNormal3.5-5.1The [facility] Comment on above:Performed By: #### UAMIC #### [facility] [address] [address] [address] Manda YorkProtein [Mass/Vol]7.1 g/dLNormal6.4-8.2The [facility] Comment on above:Performed By: #### UAMIC #### [facility] [address] [address] [address] Manda Raphaeldium [Moles/Vol]137 mmol/GXhnppw943-643Dpz [facility] Comment on above:Performed By: #### UAMIC #### [facility] [address] [place] [address] Dr. Manda Kiser nitrogen [Mass/Vol]17.0 mg/dLNormal7.0-18.0The [facility] HospitalComment on above:Performed By: #### UAMIC #### [facility] [address] [place] [address] Dr. Manda Kiser nitrogen/Creatinine [Mass ratio]21.2 mg/mgNoalThLutheran HospitalComment on above:Performed By: #### UAMIC #### [facility] [address] [address] [address] Manda Mckeon RATE WESTERGRENon 58-46-3624WNV RATE40 mm/hrCritically high <=20The [facility] HospitalComment on above:Performed By: #### SEDR #### [facility] [address] [place] [address] Dr. Manda Fowler 51-77-0792NQL6.155 uIU/mLNormal0.358-3.740[facility] Medical CenterComment on above:Performed By: #### UAMIC #### [facility] [address] [place] [address] Dr. Manda Lynch RANDOM W/MICROSCOPICon 63-25-3191PSCJCNMPFFCV SEENNormalNONE SEENFisher-Titus Medical CenterComment on above:Performed By: #### UAMIC #### [facility] [address] [place] [address] Dr. Manda Clarkirubin Ql (U)NegativeNormalNEGATIVEThe [facility] Comment on above:Performed By: #### UAMIC #### [facility] [address] [place] [address] Dr. Manda YorkCASTNONE SEENNormalNONE SEENThe [facility] HospitalComment on above:Performed By: #### UAMIC #### [facility] [address] [address] [address] Manda Beaverarity (U)CLEARNormalCLEARFisher-Titus Medical CenterComment on above: Performed By: #### UAMIC #### [facility] [address] [address] [address] Manda Brownelor (U)LT. YELLOWNormalYELLOWFisher-Titus Medical CenterComment on above:Performed By: #### UAMIC #### [facility] [address] [address] [address] Manda YorkCrystals LM Nom (Urine sed)NONE SEENNormalNONE SEENFisher-Titus Medical CenterComment on above:Performed By: #### UAMIC #### [facility] [address] [place] [address] Dr. Holman ChangEpithelial cells LM Ql (Urine sed)RARENormalNONE SEEN /RAREFisher-Titus Medical CenterComment on above:Performed By: #### UAMIC #### [facility] [address] [place] [address] Dr. Manda YorkGlucose Ql (U)NegativeNormalNEGATIVEGuernsey Memorial Hospitalment on above:Performed By: #### UAMIC #### [facility] [address] [place] [address] Dr. Manda YorkHemoglobin Ql (U)NegativeNormalNEGATIVEPromedica Defiance Regional Hospital on above:Performed By: #### UAMIC #### [facility] [address] [place] [address] Dr. Manda YorkKetones Ql (U)NegativeNormalNEGATIVEFisher-Titus Medical CenterComment on above:Performed By: #### UAMIC #### [facility] [address] [place] [address] Dr. Manda YorkLEUKOCYTESNegativeNormalNEGATIVEFisher-Titus Medical CenterCommclaren [place] on above:Performed By: #### UAMIC #### [facility] [address] [place] [address] Dr. Manda Gomez SEENNormalNONE SEENThe [facility] HospitalComment on above:Performed By: #### UAMIC #### [facility] [address] [place] [address] Dr. Manda Kirkland Ql (U)NegativeNormalNEGATIVEThe [facility] HospitalComment on above:Performed By: #### UAMIC #### [facility] [address] [address] [address] Manda YorkpH (U)6.0 [pH]Normal5-9The [facility] HospitalComment on above: Performed By: #### UAMIC #### [facility] [address] [place] [address] Dr. Manda YorkRBCNONE SEENAbnormal0-2The [facility] HospitalComment on above: Performed By: #### UAMIC #### [facility] [address] [place] [address] Dr. Manda YorkSPEC GRAVITY1.095Nxaxhw9.005-<=1.025The [facility] HospitalComment on above:Performed By: #### UAMIC #### [facility] [address] [place] [address] Dr. Manda Lynch PROTEINNegativeNormalNEGATIVE/ TRACEThe [facility] Comment on above:Performed By: #### UAMIC #### [facility] [address] [place] [address] Dr. Manda Thompsonbilbelkisgen Qn (U)0.2 {Carmella'U}/dLNormal0.2 - 1.0The [facility] HospitalComment on above:Performed By: #### UAMIC #### [facility] [address] [address] [address] Manda YorkWBCJAG SEENNormalNONE SEENThe [facility] HospitalComment on above: Performed By: #### UAMIC #### [facility] [address] [place] [address] Dr. Manda YorkURIC ACID SERUMon [id number] [Mass/Vol]4.2 mg/dLNormal 2.6-6.0The [facility] HospitalComment on above:Performed By: #### UAMIC #### [facility] [address] [place] [address] Dr. Manda YorkVITAMIN D 25 OHon 43-77-1909BVT D 25-OH22.4 ng/mLNormalFisher-Titus Medical CenterComment on above:Performed By: #### FT4 #### [facility] [address] [place] [address] Dr. Manda Bee D [place]ANGES[place] BELOWProMedica Defiance Regional HospitalComment on above: Result Comment: <20 ng/mL Vit D deficient 20 - <30 ng/mL Vit D insufficient 30 - 100 ng/mL Vit D sufficient >100 ng/mL Potential ToxicityPerformed By: #### FT4 #### [facility] [address] [place] [address] Dr. Manda Gomez FRA. QNT 24 HR URINEon [id number], U,24pxKxntrrxVuyluc94-717Icb [facility] HospitalComment on above:Result Comment: No total volume submitted. Unable to calculate 24 hour result.Performed By: #### NURIS THYLC #### [facility] [address] [place] [address] Dr. Manda Oronaphrine, Ur57 ug/LNormalUndHocking Valley Community Hospital Comment on above:Performed By: #### NURIS THYLC #### [facility] [address] [place] [address] Dr. Manda Barcenasrmetanephr.,U,30jYynfzaqDzvrfi896-193Zcp [facility] Comment on above:Result Comment: No total volume submitted. Unable to calculate 24 hour result.Performed By: #### NURIS THYLC #### [facility] [address] [place] [address] Dr. Manda Barcenasrmetanephrine, Ur116 ug/LNormalUndHocking Valley Community Hospital Comment on above:Performed By: #### NURIS THYLC #### [facility] [address] [place] [address] Dr. Yilan ChangMETANEPHRINES PLASMA FREEon 78-75-0424Rucxzzfamrff, Pl22.1 pg/mL Normal0.0-88.0The [facility] HospitalComment on above:Performed By: #### LEANN LAWLERC #### [facility] [address] [place] [address] Dr. Manda YorkNormetanephrine, Pl50.7 pg/mLNormal0.0-218.9[facility] Comment on above:Performed By: #### NURIS THYLC #### [facility] [address] [place] [address] Dr. Manda YorkCMV PLASMA PCRon [id number] Quant DNA PCR (Plasma)Negative NormalNegativeFisher-Titus Medical CenterComment on above:Result Comment: No CMV DNA detected. The quantitative range of this assay is 200 to 1 million IU/mL.Performed By: #### LEANN LAWLERC #### [facility] [address] [place] [address] Dr. Manda Yorklog10 CMV Qn DNA PlUPTCALNoToledo HospitalComment on above:Result Comment: Unable to calculate result since non-numeric result obtained for component test.Performed By: #### NURIS THYLC #### [facility] [address] [place] [address] Dr. Manda YorkCMV AB IGMon [id number] (CMV) Ab, IgM43.2 AU/mL Critically high0.0-29.9The [facility] HospitalComment on above:Result Comment: Negative <30.0 Equivocal 30.0 - 34.9 Positive >34.9 A positive result is generally indicative of acute infection, reactivation or persistent IgM production.Performed By: #### NURIS THYLC #### [facility] [address] [place] [address] Dr. Manda NavarreteV AB, IGGon [id number] (CMV) Ab, IgG>10.00 Critically high0.00-0.59[facility] on above:Result Comment: Negative <0.60 Equivocal 0.60 - 0.69 Positive >0.69Performed By: #### CMVIGG #### [facility] [address] [place] [address] Dr. Manda Bruce AUTO DIFFon [id number] #0.1 103/ulNormal0.0-0.1The [facility] HospitalComment on above:Performed By: #### CBC #### [facility] [address] [place] [address] Dr. Manda YorkBasophils/100 WBC (Bld)0.6 %Normal0.2-2.0[facility] Comment on above:Performed By: #### CBC #### [facility] [address] [place] [address] Dr. Manda Shafer #0.2 103/ulNormal0.0-0.7The [facility] HospitalComment on above: Performed By: #### CBC #### [facility] [address] [place] [address] Dr. Manda Noonanosinophils/100 WBC (Bld)2.3 %Normal0.9-7.0The [facility] Comment on above:Performed By: #### CBC #### [facility] [address] [place] [address] Dr. Manda Noonanrythrocyte distribution width (RBC) [Ratio]14.2 %Xbmpvc34.0-15.0 The [facility] HospitalComment on above:Performed By: #### CBC #### [facility] [address] [place] [address] Dr. Manda YorkHematocrit (Bld) [Volume fraction]40.2 %Dqlgna08.0-48.0The [facility] HospitalComment on above:Performed By: #### CBC #### [facility] [address] [place] [address] Dr. Manda YorkHemoglobin (Bld) [Mass/Vol]12.8 g/sCSxwjue13.0-16.0The [facility] HospitalComment on above:Performed By: #### CBC #### [facility] [address] [place] [address] Dr. Manda Calderon #0.02 10e3/ulNormal0.00-0.03The [facility] HospitalComment on above:Performed By: #### CBC #### [facility] [address] [place] [address] Dr. Manda Calderon %0.2 %Normal0.0-0.5The [facility] HospitalComment on above: Performed By: #### CBC #### [facility] [address] [place] [address] Dr. Manda Laguna #2.5 103/ulNormal1.2-3.8The [facility] HospitalComment on above:Performed By: #### CBC #### [facility] [address] [place] [address] Dr. Manda Kasperhocytes/100 WBC (Bld)24.9 %Shjwne81.5-60.0The [facility] HospitalComment on above:Performed By: #### CBC #### [facility] [address] [place] [address] Dr. Manda Dela [facility] DIFF REQNONormalThe [facility] HospitalComment on above: Performed By: #### CBC #### [facility] [address] [place] [address] Dr. Manda Gil (RBC) [Entitic mass]27.9 oeFoipcg20.7-34.0The [facility] HospitalComment on above:Performed By: #### CBC #### [facility] [address] [place] [address] Dr. Manda Cardoso (RBC) [Mass/Vol]31.8 g/iFRcxsdg46.9-35.2The [facility] HospitalComment on above:Performed By: #### CBC #### [facility] [address] [place] [address] Dr. Manda Cardoso (RBC) [Entitic vol]87.6 kUUivfot67.0-99.0The [facility] HospitalComment on above:Performed By: #### CBC #### [facility] [address] [place] [address] Dr. Manda Maciel #0.6 103/ulNormal0.3-0.8The [facility] HospitalComment on above:Performed By: #### CBC #### [facility] [address] [place] [address] Dr. Manda Coteocytes/100 WBC (Bld)6.3 %Normal1.7-12.0The [facility] Comment on above:Performed By: #### CBC #### [facility] [address] [place] [address] Dr. Manda Claudio #6.5 103/ulNormal1.4-6.5The [facility] HospitalComment on above:Performed By: #### CBC #### [facility] [address] [place] [address] Dr. Manda Longutrophils/100 WBC (Bld)65.7 %Higufa66.0-75.0The [facility] HospitalComment on above:Performed By: #### CBC #### [facility] [address] [place] [address] Dr. Manda Granados mean volume (Bld) [Entitic vol]10.1 fLNormal9.5-13.5The [facility] HospitalComment on above:Performed By: #### CBC #### [facility] [address] [place] [address] Dr. Manda YorkPLT304 103/nbCiefav814-929Wgq [facility] HospitalComment on above: Performed By: #### CBC #### [facility] [address] [place] [address] Dr. Manda ZeeC4.59 106/ulNormal4.20-5.40The [facility] HospitalComment on above:Performed By: #### CBC #### [facility] [address] [place] [address] Dr. Manda YorkWBC9.9 103/ulNormal4.0-11.0The [facility] HospitalComment on above: Performed By: #### CBC #### [facility] [address] [place] [address] Dr. Manda Macdonald 14(COMP METB)on 60-14-9459Jjxmvqy [Mass/Vol]3.7 g/dLNormal 3.4-5.0The [facility] HospitalComment on above:Performed By: #### CBC #### [facility] [address] [place] [address] Dr. Manda YorkAlbumin/Globulin [Mass ratio]1.0 {ratio}NormalThe [facility] HospitalComment on above:Performed By: #### CBC #### [facility] [address] [place] [address] Dr. Manda GraffP [Catalytic activity/Vol]65 U/WHzqbxy50-556Hea [facility] HospitalComment on above:Performed By: #### CBC #### [facility] [address] [place] [address] Dr. Manda Person [Catalytic activity/Vol]35 U/MDoidbh43-88Rym [facility] HospitalComment on above:Performed By: #### CBC #### [facility] [address] [place] [address] Dr. Manda Loo gap [Moles/Vol]13.0 mmol/LNormalThe [facility] Comment on above:Performed By: #### CBC #### [facility] [address] [place] [address] Dr. Manda YorkAST [Catalytic activity/Vol]12 U/LCritically eti43-03Mmp [facility] HospitalComment on above:Performed By: #### CBC #### [facility] [address] [place] [address] Dr. Manda YorkBilirubin [Mass/Vol]0.2 mg/dLNormal0.2-1.0The [facility] Comment on above:Performed By: #### CBC #### [facility] [address] [place] [address] Dr. Manda YorkCalcium [Mass/Vol]8.7 mg/dLNormal8.5-10.1[facility] Comment on above:Performed By: #### CBC #### [facility] [address] [place] [address] Dr. Manda YorkChloride [Moles/Vol]104 mmol/UEshzbo00-998Dtf [facility] Comment on above:Performed By: #### CBC #### [facility] [address] [address] [address] Manda YorkCO2 [Moles/Vol]24.9 mmol/CVvkmnb71.0-32.0The [facility] Comment on above:Performed By: #### CBC #### [facility] [address] [address] [address] Manda YorkCreatinine [Mass/Vol]0.77 mg/dLNormal0.55-1.02The [facility] HospitalComment on above:Performed By: #### CBC #### [facility] [address] [place] [address] Dr. Manda NoonanGFR-AF CYMRAES>=60Normal>=60The [facility] HospitalComment on above:Performed By: #### CBC #### [facility] [address] [address] [address] Manda NoonanGFR-NON AF CYMRAES>=60Normal>=60The [facility] HospitalComment on above:Performed By: #### CBC #### [facility] [address] [address] [address] Manda YorkGlobulin (S) [Mass/Vol]3.8 g/dLNormalThe [facility] HospitalComment on above:Performed By: #### CBC #### [facility] [address] [address] [address] Manda YorkGlucose [Mass/Vol]110 mg/dLCritically vooq03-886Dkx [facility] HospitalComment on above:Performed By: #### CBC #### [facility] [address] [address] [address] Manda YorkPotassium [Moles/Vol]3.9 mmol/LNormal3.5-5.1The [facility] Comment on above:Performed By: #### CBC #### [facility] [address] [address] [address] Manda YorkProtein [Mass/Vol]7.5 g/dLNormal6.4-8.2The [facility] Comment on above:Performed By: #### CBC #### [facility] [address] [place] [address] Dr. Manda Raphaeldium [Moles/Vol]138 mmol/SOtcbip350-623Suo [facility] Comment on above:Performed By: #### CBC #### [facility] [address] [place] [address] Dr. Manda Kiser nitrogen [Mass/Vol]17.0 mg/dLNormal7.0-18.0The [facility] HospitalComment on above:Performed By: #### CBC #### [facility] [address] [place] [address] Dr. Manda Kiser nitrogen/Creatinine [Mass ratio]22.1 mg/mgNormalThe [facility] HospitalComment on above:Performed By: #### CBC #### [facility] [address] [place] [address] Dr. Manda Mckeon RATE WESTERGRENon 05-84-4989BOJ RATE45 mm/hrCritically high <=20The [facility] HospitalComment on above:Performed By: #### FT4 #### [facility] [address] [place] [address] Dr. Manda Pickard EIA W/REFLEX 5 BIOMARKERSon [id number] DirectPositive AbnormalNegativeThe [facility] HospitalComment on above:Performed By: #### CBC #### [facility] [address] [place] [address] Dr. Manda Meza-DNA (DS) Ab Qn10 IU/mLCritically high0-9The [facility] HospitalComment on above:Result Comment: Negative <5 Equivocal 5 - 9 Positive >9Performed By: #### CBC #### [facility] [address] [place] [address] Dr. Manda Chowdary Antibodies<0.8Qibtsp2.0-0.9The [facility] HospitalComment on above:Performed By: #### CBC #### [facility] [address] [place] [address] Dr. Manda Lux BELOW:CommentNormKnox Community HospitalComment on above: Result Comment: Autoantibody Disease Association [...] Sm (anti-Schneider) SLE 15 - 30% --------- SUBMERSIBLE PILOT Mixed Connective Tissue Disease 95% (U1 nRNP, SLE 30 - 50% anti-ribonucleoprotein) Polymyositis and/or Dermatomyositis 20% --------- Scl-70 (antiDNA Scleroderma (diffuse) 20 - 35% topoisomerase) Crest 13% --------- Felicita-1 Polymyositis and/or Dermatomyositis 20 - 40% --------- Centromere B Scleroderma - Crest variant 80%Performed By: #### CBC #### [facility] [address] [place] [address] Dr. Manda Harmon Anti-SS-A<0.5Orfghh7.0-0.9[facility] on above:Performed By: #### CBC #### [facility] [address] [place] [address] Dr. Manda Harmon Anti-SS-B<0.4Wazbwo3.0-0.9[facility] on above:Performed By: #### CBC #### [facility] [address] [place] [address] Dr. Manda Lloyd Antibodies<0.0Fuhhag1.0-0.9[facility] on above:Performed By: #### CBC #### [facility] [address] [place] [address] Dr. Manda NavarreteV PLASMA PCRon [id number] Quant DNA PCR (Plasma)Negative NormalNegativeThe [facility] HospitalComment on above:Result Comment: No CMV DNA detected. The quantitative range of this assay is 200 to 1 million IU/mL.Performed By: #### CMVPL #### [facility] [address] [place] [address] Dr. Manda Yorklog10 CMV Qn DNA PlUPTCALNoSelect Medical Specialty Hospital - Akrone [facility] HospitalComment on above:Result Comment: Unable to calculate result since non-numeric result obtained for component test.Performed By: #### CMVPL #### [facility] [address] [place] [address] Dr. Manda NavarreteV AB IGMon 78-03-0610Ngsuxxpjtkpomzl (CMV) Ab, IgM35.5 AU/mL Critically high0.0-29.9The [facility] HospitalComment on above:Result Comment: Negative <30.0 Equivocal 30.0 - 34.9 Positive >34.9 A positive result is generally indicative of acute infection, reactivation or persistent IgM production.Performed By: #### NURIS THYLC #### [facility] [address] [place] [address] Dr. Manda Buenrostro AB, IGGon 16-83-3140Vletacjannbcbkn (CMV) Ab, IgG6.30 U/mL Critically high0.00-0.59The [facility] HospitalComment on above:Result Comment: Negative <0.60 Equivocal 0.60 - 0.69 Positive >0.69Performed By: #### SLEA THYLC #### [facility] [address] [place] [address] Dr. Manda Bruce AUTO DIFFon [id number] #0.1 103/ulNormal0.0-0.1The [facility] HospitalComment on above:Performed By: #### CBC #### [facility] [address] [place] [address] Dr. Manda YorkBasophils/100 WBC (Bld)0.7 %Normal0.2-2.0The [facility] Comment on above:Performed By: #### CBC #### [facility] [address] [place] [address] Dr. Manda Shafer #0.2 103/ulNormal0.0-0.7The [facility] HospitalComment on above: Performed By: #### CBC #### [facility] [address] [place] [address] Dr. Manda Noonanosinophils/100 WBC (Bld)2.0 %Normal0.9-7.0The [facility] Comment on above:Performed By: #### CBC #### [facility] [address] [place] [address] Dr. Manda Noonanrythrocyte distribution width (RBC) [Ratio]14.4 %Ckznic14.0-15.0 The [facility] HospitalComment on above:Performed By: #### CBC #### [facility] [address] [place] [address] Dr. Manda YorkHematocrit (Bld) [Volume fraction]37.2 %Wpsajq86.0-48.0The [facility] HospitalComment on above:Performed By: #### CBC #### [facility] [address] [place] [address] Dr. Manda YorkHemoglobin (Bld) [Mass/Vol]12.3 g/fYYitfvn23.0-16.0The [facility] HospitalComment on above:Performed By: #### CBC #### [facility] [address] [place] [address] Dr. Manda Calderon #0.02 10e3/ulNormal0.00-0.03The [facility] HospitalComment on above:Performed By: #### CBC #### [facility] [address] [place] [address] Dr. Manda Calderon %0.2 %Normal0.0-0.5The [facility] HospitalComment on above: Performed By: #### CBC #### [facility] [address] [place] [address] Dr. Manda Laguna #2.1 103/ulNormal1.2-3.8The [facility] HospitalComment on above:Performed By: #### CBC #### [facility] [address] [place] [address] Dr. Manda Bolañosmphocytes/100 WBC (Bld)26.4 %Zfwvvz39.5-60.0The [facility] HospitalComment on above:Performed By: #### CBC #### [facility] [address] [place] [address] Dr. Manda Richards DIFF REQNONormalThe [facility] HospitalComment on above: Performed By: #### CBC #### [facility] [address] [place] [address] Dr. Manda Cardoso (RBC) [Entitic mass]29.2 csExzlbl59.7-34.0The [facility] HospitalComment on above:Performed By: #### CBC #### [facility] [address] [place] [address] Dr. Manda Cardoso (RBC) [Mass/Vol]33.1 g/xDEiwdlh72.9-35.2The [facility] HospitalComment on above:Performed By: #### CBC #### [facility] [address] [place] [address] Dr. Manda Bradshaw (RBC) [Entitic vol]88.4 fSPvrbif34.0-99.0The [facility] HospitalComment on above:Performed By: #### CBC #### [facility] [address] [place] [address] Dr. Manda Maciel #0.5 103/ulNormal0.3-0.8The [facility] HospitalComment on above:Performed By: #### CBC #### [facility] [address] [place] [address] Dr. Manda Coteocytes/100 WBC (Bld)6.7 %Normal1.7-12.0The [facility] Comment on above:Performed By: #### CBC #### [facility] [address] [place] [address] Dr. Manda Claudio #5.2 103/ulNormal1.4-6.5The [facility] HospitalComment on above:Performed By: #### CBC #### [facility] [address] [place] [address] Dr. Manda Longutrophils/100 WBC (Bld)64.0 %Wfippk30.0-75.0The [facility] HospitalComment on above:Performed By: #### CBC #### [facility] [address] [place] [address] Dr. Manda Ferreiralet mean volume (Bld) [Entitic vol]10.5 fLNormal9.5-13.5The [facility] HospitalComment on above:Performed By: #### CBC #### [facility] [address] [place] [address] Dr. Manda YorkPLT265 103/owQxzjwp508-023Cog [facility] HospitalComment on above: Performed By: #### CBC #### [facility] [address] [place] [address] Dr. Manda YorkRBC4.21 106/ulNormal4.20-5.40The [facility] HospitalComment on above:Performed By: #### CBC #### [facility] [address] [place] [address] Dr. Manda YorkWBC8.1 103/ulNormal4.0-11.0The [facility] HospitalComment on above: Performed By: #### CBC #### [facility] [address] [place] [address] Dr. Manda Lopez 10-95-1893ZXZ [Mass/Vol]mg/LNormal<=1.0The [facility] HospitalComment on above:Performed By: #### FT4 #### [facility] [address] [place] [address] Dr. Manda Mckeon RATE OCEAN CITYERGRENon 57-32-5884EZG RATE34 mm/hrCritically high <=20The [facility] HospitalComment on above:Performed By: #### CBC #### [facility] [address] [place] [address] Dr. Manda Santana (POC)Ordered By: Jonas Black on 60-47-8611Epvjyifk [Moles/Vol]106 mmol/L98 - 107 mmol/LMercy Health Work Phone: catheterization and angiography procedure details panelOrdered By: Jonas Black on 89-11-0027Tbsfrlp Diagnostic Report Demographics Patient TERA Torres Date of Study 10/07/2020 Name Dateof 1980 Gender Female Age 40 year(s) Race Room 1281072^LEYDI^JONAS Height: 67 inch, 170.18 cm Number Corporate [id number] Weight: 234 pounds, 106.1 kg ID # Patient [id number] BSA: 2.16 m^2 BMI: 36.65 kg/m^2 Acct # MR # [id number] Performing Jonas Black Physician 882 Referring # [...] Right coronary angiography. Contrast Material: - Isovue 92110 ml Fluoroscopy Time: Diagnostic: 2:12 minutes. Total: [...] assessed as CCS II according to the [place] clinical classification. Hemodynamics Condition: Baseline Room Air [...] --------+---------+---------+---------+ +---------+ + !Aortic (more content not included)...[employer] Work Phone: edi, [facility] Incoming Cardio Results From [facility]/Ge - 10/07/2020 10:37 AM EDT Cardiac Diagnostic Report Demographics Patient TERA Torres Date of Study 10/07/2020 Name Date of 1980 Gender Female Age 40 year(s) Race Room [id number]^LEYDI^JONAS Height: 67 inch, 170.18 cm Number Corporate [id number] Weight: 234 pounds, 106.1 kg ID # Patient [id number] BSA: 2.16 m^2 BMI: 36.65 kg/m^2 Acct # MR # [id number] Performing Jonas Black Physician Referring # Physician [...] Right coronary angiography. Contrast Material: - Isovue 68134 ml Fluoroscopy Time: Diagnostic: 2:12 minutes. Total: [...] assessed as CCS II according to the Slov[place] clinical classification. Hemodynamics Condition: Baseline Room Air [...] +---------+---------+---------+ +---------+ + Shunts Oxygen Values O2 Icbrbdae838.4O2 Hvdnqbbcwev968.52 [employer] Phone: [facility] [employer] Phone: [facility] [employer] Phone: creatinine W/GFR Point of CareOrdered By: Jonas Black on 69-49-2422Butkpulufz [Mass/Vol]0.64 mg/dL0.51 - 1.19 mg/dLGloucester Pharmaceuticals Phone: GFR Non->60>60 mL/minDetwiler Memorial HospitalProject [employer] Phone: GFR/1.73 sq M.predicted MDRD (S/P/Bld) [Vol rate/Area] mL/min/{1.73_m2}>60 mL/minDetwiler Memorial HospitalProject [employer] Phone: GFR/1.73 sq M.predicted MDRD (S/P/Bld) [Vol rate/Area] [employer] Phone: comment on above:Average GFR for 40-49 years old: 99 mL/min/1.73sq m Chronic Kidney Disease: <60 mL/min/1.73sq m Kidney failure: <15 mL/min/1.73sq m eGFR calculated using average adult body mass. Additional eGFR calculator available at: http://www.[employer]/multiple_crcl_2012.htm Hemoglobin and hematocrit, bloodOrdered By: Jonas Black on 95-84-9522Oyyzjhriuw (Bld) [Volume fraction]41 %36 - 46 %[employer] Phone: Hemoglobin (Bld) [Mass/Vol]14.0 g/dL12.0 - 16.0 g/dL [employer] Phone: No Panel InformationOrdered By: Jonas Black on 17-72-9018[facility] Work Phone: pOCT GlucoseOrdered By: Jonas Black on 10-07-2020 Glucose [Mass/Vol]98 mg/dL74 - 100 mg/dLGloucester Pharmaceuticals Phone: pOCT urine pregnancyOrdered By: Jonas Black on 67-74-7778Hxjw HCG ( test) Ql (U)NegativeNEGATIVEDetwiler Memorial HospitalProject [employer] Phone: comment on above:Specimens with hCG levels near the threshold of the test (25 mIU/mL) may give a negative or indeterminate result. In such cases, another test should be performed with a new specimen in 48-72 hours. If early is suspected clinically in this setting, correlation with quantitative serum b-hCG level is suggested. [employer] Work Phone: pOTASSIUM (POC)Ordered By: Jonas Black on 10-07-2020 Potassium [Moles/Vol]3.8 mmol/L3.5 - 4.5 mmol/LMercy Health Work Phone: platelet Counton 43-71-4698Almoonmci (Bld) [#/Vol]299 10*3/oQVukbpa190-865CcwunFisher-Titus Medical CenterComment on above:Performed By: #### PLT #### [address] [place] [address] Area Relief Pilot: Rick Serrano MDPlatelet countOrdered By: Jonas Black on 17-70-0616Nplfnhwmv (Bld) [#/Vol]299 10*3/uLMercy [employer] Work Phone: [employer] Work Phone: sODIUM (POC)Ordered By: Jonas Black on 10-07-2020 Sodium [Moles/Vol]141 mmol/L138 - 146 mmol/LMercy [employer] Work Phone: coding Summary.on 39-39-0847Uvsugv Summary.CODING DATE: 01/12/2019 FINAL [facility] STATUS: Home (Routine DC) PAYOR: Medicaid [...] index (BMI) 34.0-34.9, adult Z79.899 Other terminal operations supervisor (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 However, the narrative phrase printed from the coding software may appear abbreviated, or result in slightly different terminology. Coded By: Luz Judd Date Saved: 01/12/2019 10:25 [facility] CODING DATE: 01/12/2019 FINAL [facility] DSCH STATUS: Home (Routine DC) PAYOR: [...] index (BMI) 34.0-34.9, adult Z79.899 Other terminal operations supervisor (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 However, the narrative phrase printed from the coding software may appear abbreviated, or result in slightly different terminology. Revised Coded By: Luz Judd Revised Date Saved: 01/12/2019 10:25 [facility] HospitalXR Chest 2 Viewson [id number] Chest 2 ViewsExam Date/Time: 01/11/2019 18:05 EDT [...] Micheal Valenzuela M.D. Transcribed by: BILL Technologist: DAYANARACleveland Clinic Marymount HospitalAuto Diffon [id number]/100 WBC (Bld)0.8 %Normal0.0-2.0[facility] Comment on above:Order Comment: Order Added by Discern Expert.Performed By: #### [id number], 7069811, 6505286, 9182533, 00009196, 9665352, 1068555, 7978341, 5617438, 18400183, 0543580 #### [facility] Laboratory [address], [place] [address]Smawstnis/Leukocytes Auto (Bld) [Pure # fraction]0.1 E9/LNormal 0.0-0.2[facility] CenterComment on above:Order Comment: Order Added by Discern Expert.Performed By: #### [id number], 6139432, 1483294, 3220811, 99512063, 6016504, 0049906, 0252061, 5544793, 86786546, 8566798 #### [facility] Laboratory [address], [place] [address]Pyhsdgnvzqr/100 WBC (Bld)1.9 %Normal0.0-8.0[facility] For RehabilitationComment on above:Order Comment: Order Added by Discern Expert.Performed By: #### [id number], 8752951, 8110553, 1574066, 42342668, 4545235, 2248648, 7940657, 7417548, 56322566, 2064178 #### [facility] Laboratory [address], [place] [address]Lguiflvoutw/Leukocytes Auto (Bld) [Pure # fraction]0.1 E9/L Normal0.0-0.5FDoctors HospitalComment on above:Order Comment: Order Added by Discern Expert.Performed By: #### [id number], 7838551, 4826514, 3361061, 22868935, 8892688, 6356988, 3264067, 2547991, 07277133, 8565349 #### [facility] Laboratory [address], [place] [address]Klrkwwmihil/100 WBC (Bld)28.0 %Jhfdsr02.0-50.0[facility] Hospital For RehabilitationComment on above:Order Comment: Order Added by Discern Expert. Performed By: #### [id number], 5339286, 9057564, 2259112, 94912460, 5558507, 8625560, 5322880, 2520630, 16243933, 8698834 #### [facility] Laboratory [address], [place] [address]Ymweqidqydw/Leukocytes Auto (Bld) [Pure # fraction]2.2 E9/L Normal1.0-4.0[facility] For RehabilitationComment on above:Order Comment: Order Added by Discern Expert.Performed By: #### 18926972, 4497470, 3731167, 5085769, 90340929, 1071918, 0815900, 9968482, 4610615, 83981516, 9089022 #### [facility] Laboratory [address] [place] [address]Ddkbmlmwf/100 WBC (Bld)7.0 %Normal4.0-14.0[facility] For RehabilitationComment on above:Order Comment: Order Added by Discern Expert.Performed By: #### 70486357, 6165759, 0506204, 5982431, 66128195, 0211535, 5547750, 9156983, 5321195, 44455153, 8432916 #### [facility] Laboratory [address] [place] [address]Sgcyifsiu/Leukocytes Auto (Bld) [Pure # fraction]0.6 E9/LNormal 0.2-1.0[facility] For RehabilitationComment on above:Order Comment: Order Added by Discern Expert.Performed By: #### 94287371, 5317027, 6549290, 1303853, 71170573, 1506140, 9110586, 3834865, 2835400, 22998047, 6326391 #### [facility] Laboratory [address], [place] [address]Qatyhrnapyy/100 WBC (Bld)62.3 %Oelmxx49.0-75.0[facility] For RehabilitationComment on above:Order Comment: Order Added by Discern Expert. Performed By: #### 25774452, 9498134, 9327991, 2023277, 48211468, 8174898, 8111011, 2969829, 6005368, 04137427, 9115427 #### [facility] Laboratory [address], [place] [address]Tpxujhxrnla/Leukocytes Auto (Bld) [Pure # fraction]4.9 E9/L Normal2.0-7.5FDoctors HospitalComment on above:Order Comment: Order Added by Discern Expert.Performed By: #### 95842701, 3895809, 8974041, 1252438, 26586801, 5026113, 2860842, 7521712, 6717462, 86582482, 8277739 #### [facility] Laboratory [address] [place] [address]CVMrn 97-00-1573Bdljsdurbd [Mass/Vol]0.7 mg/dLNormal0.5-1.3 [facility] For RehabilitationComment on above:Performed By: #### 63177464, 9196394, 8546068, 4946031, 94550190, 8002874, 4203159, 6328525, 5776177, 64869164, 7021096 #### [facility] Laboratory [address], [place] [address]Ymxo nitrogen [Mass/Vol]11 mg/dLNormal5-21[facility] For RehabilitationComment on above:Performed By: #### 23762009, 2689668, 3921549, 3239328, 16534184, 0835159, 8529443, 3406636, 9143085, 57171377, 6344873 #### [facility] Laboratory [address], [place] [address]Xaeu nitrogen/Creatinine [Mass ratio]16 No QcksrRwkvhz30-44 [facility] For RehabilitationComment on above:Performed By: #### 06016481, 0305000, 6963885, 9037944, 84045120, 9508875, 6847031, 0370557, 3690433, 04303576, 2411127 #### [facility] Laboratory [address], [place] [address]Akylz gap [Moles/Vol]14 mmol/LNormal6-16[facility] For RehabilitationComment on above:Performed By: #### 86916740, 2648013, 6352072, 7058919, 93030075, 5208847, 8182767, 1172713, 3569224, 43053111, 4233858 #### [facility] Laboratory [address], [place] [address]Mgijjkr [Mass/Vol]8.9 mg/dLNormal8.9-11.1FDoctors HospitalComment on above:Performed By: #### 61806936, 6001839, 6991556, 4172602, 21561742, 6978453, 2527230, 4435444, 3192085, 98838420, 2653591 #### [facility] Laboratory [address], [place] [address]Jfnecesg [Moles/Vol]107 mmol/DWlykmu719-065EdjgsdCleveland Clinic Children'S Hospital For RehabilitationComment on above:Performed By: #### 76321331, 3944227, 8337163, 4966853, 74406693, 2619906, 0267615, 6188196, 3129284, 94005212, 2747902 #### [facility] Laboratory [address], [place] [address]CB6 [Moles/Vol]22 mmol/ZOcsmdr02-70NlelveCleveland Clinic Children'S Hospital For Rehabilitation Comment on above:Performed By: #### 38968969, 2701056, 6027966, 1560874, 78560298, 9442574, 8210458, 0370705, 5148155, 12694663, 6096034 #### [facility] Laboratory [address], [place] [address]Xfczbdk [Mass/Vol]122 mg/kUEbppcq08-622OlnealCleveland Clinic Children'S Hospital For RehabilitationComment on above:Result Comment: If this glucose result represents a fasting glucose, interpretation should refer tothe following reference range: 55-99 mg/dLPerformed By: #### 47125568, 8420711, 8615490, 8268965, 25746796, 5494958, 6076328, 8513468, 4101609, 02447785, 8194534 #### [facility] Laboratory [address], [place] [address]Bzljrjafg [Moles/Vol]3.8 mmol/LNormal3.5-5.3FDoctors HospitalComment on above:Performed By: #### 80344704, 2781830, 3658251, 8739698, 04281246, 7146560, 1909154, 4549743, 0584646, 83316407, 3750888 #### [facility] Laboratory [address], [place] [address]Miszah [Moles/Vol]139 mmol/LYdgunf222-410BoaqgjThe Sheppard & Enoch Pratt HospitalComment on above:Performed By: #### 55250089, 4340434, 3246389, 6103169, 46021035, 3058582, 8243399, 0239215, 1359053, 02448829, 7015680 #### [facility] Laboratory [address], [place] [address]XMK w/ Auto Diffon 27-77-0512Arikkzbajjo distribution width (RBC) [Ratio]14.0 %Skxsnb37.9-14.2FDoctors HospitalComment on above: Performed By: #### 82959380, 7111603, 4924833, 0612395, 80097638, 7370006, 0215408, 5496379, 4099546, 86097333, 5885590 #### [facility] Laboratory [address], [place] [address]Umsbrkxihy (Bld) [Volume fraction]39.9 %Rctvvw54.0-46.0[facility] For RehabilitationComment on above:Performed By: #### 42553574, 3594382, 3622538, 5966992, 00410128, 9761847, 3657463, 4135330, 0850409, 24783547, 5471883 #### [facility] [address], [place] [address]Qsvjkdfkck (Bld) [Mass/Vol]13.5 g/nQSutbhg43.0-16.0[facility] For RehabilitationComment on above:Performed By: #### 57019302, 1434100, 0195039, 4581633, 75820097, 0178408, 1581907, 3614210, 9037243, 62365522, 6383044 #### [facility] Laboratory [address], [place] [address]IFD (RBC) [Entitic mass]29.4 okFkxoil39.0-34.0[facility] For RehabilitationComment on above:Performed By: #### 73092222, 7812956, 4008744, 2622075, 76876964, 9535342, 8683141, 9408192, 9440986, 51695559, 7328074 #### [facility] Laboratory [address], [place] [address]CAPJ (RBC) [Mass/Vol]33.7 g/vQWylivo57.3-35.7FDoctors HospitalComment on above:Performed By: #### 33412153, 1248425, 3433344, 5785754, 61538255, 8297501, 0527406, 2908676, 6959259, 79205348, 1965278 #### [facility] Laboratory [address], [place] [address]AUZ (RBC) [Entitic vol]87.4 nIThruyp10.0-100.0[facility] For RehabilitationComment on above:Performed By: #### 83168833, 6294787, 2575755, 1665109, 77080169, 0480272, 3426367, 0192024, 7728487, 10682142, 8754161 #### [facility] Laboratory [address], [place] [address]Mhysculv mean volume (Bld) [Entitic vol]8.5 fLNormal6.4-10.8 [facility] For RehabilitationComment on above:Performed By: #### 46991813, 9575292, 2644860, 5499326, 07977130, 1857138, 2403315, 3747378, 9946089, 66312030, 4264861 #### [facility] Laboratory [address], [place] [address]Ujpzmuckn (Bld) [#/Vol]244.0 E9/EUrksuz448.0-500.0[facility] For RehabilitationComment on above:Performed By: #### 72693016, 0844602, 1237086, 2419764, 58416074, 5472113, 7460319, 3456293, 5245499, 70299313, 8296878 #### [facility] Laboratory [address], [place] [address]BUY (Bld) [#/Vol]4.6 E12/LNormal4.3-5.9[facility] For RehabilitationComment on above:Performed By: #### 71457867, 4767555, 3940829, 3620039, 62860567, 5888049, 1877773, 8694382, 9158350, 55858836, 8379095 #### [facility] Laboratory [address], [place] [address]TVX corrected for nucl RBC Auto (Bld) [#/Vol]7.9 E9/LNormal 4.0-11.0[facility] For RehabilitationComment on above:Performed By: #### 43096713, 4919808, 4405744, 8526789, 00216766, 6498966, 0376125, 5641230, 2275381, 97335159, 8861904 #### [facility] Laboratory [address], [place] [address]D-Frtezvs 15-24-5052Zweicm D-dimer FEU (PPP) [Mass/Vol]265 ng/rIWcryhk075-770LndnlfCleveland Clinic Children'S Hospital For RehabilitationComment on above:Result Comment: This D-Dimer assay may [...] skin infections Liver cirrhosis PregnancyPerformed By: #### 33073347, 0414362, 4280594, 9028285, 93751969, 0668669, 9151824, 9475997, 6411327, 91259753, 1808305 #### [facility] Laboratory [address] [place] [address]MF Clinical Summaryon 38-81-2759GK Clinical Summary [address] [address] ED Clinical Summary Person Information Name: ARIADNA HALEY [facility]goer/[facility] Age: 38 Years : 1980 12:00 AM Sex: Female Language: Burmese PCP: Charles Nicole DO Marital Status: Single Phone: [phone] Visit Id: Visit Reason: Chest pain; CHEST [...] 01/11/2019 6:42 PM 01/11/2019 6:42 PM ADDRESS: [address] [place] [id number] [facility] DOC NOTES: MEDICAL INFORMATION: Prescriptions Given: PATIENT EDUCATION INFORMATION: Instructions: Smoking Cessation; Chest Pain (Nonspecific) Follow up: With: Address: When: [address] [address] Business (1) Within 2 to 3 days Comments: Return to ED if symptoms worsen DIAGNOSIS: 1:Chest painNormalFisher Atul Medical CenterED Note-Physicianon 71-44-4916BT Note-PhysicianBasic Information Time Seen: Orin Browne DO [...] prescription medications Follow-up With When Contact Information [place] Within 2 to [address] [place], [place] [id number] [facility] (1) Additional Instructions: Return [...] Lymph Auto: 28 % (01/11/19 16:46:00 EDT) [place] Auto: 7 % (01/11/19 16:46:00 EDT) Eos Auto: 1.9 % (01/11/19 16:46:00 EDT) Basophil Auto: 0.8 % (01/11/19 16:46:00 EDT) Neutro Absolute: 4.9 E9/L (01/11/19 16:46:00 EDT) Lymph Absolute: 2.2 E9/L (01/11/19 16:46:00 EDT) [place] Absolute: 0.6 E9/L (01/11/19 16:46:00 EDT) Eos [...] Results EC01/11/19: SINUS RHYTHM RATE 84, NORMAL MS AND QRS, NO ST ELEVATION OR DEPRSSION, NORMAL AXIS, NORMAL QTC NORMAL ECG Signed By: Orin Browne DO 01/11/2019 15:54:18[facility] Comment on above:Result Comment: Electronically Signed By: Orin Browne DO\.br\Date and Time Signed: 01/11/19 18:36 EDTED Patient Education Noteon [id number] Patient Education NoteFamily Medicine Smoking Cessation Quitting [...] and skin patches. Some may be available xjxe-lyo-dzuozcr and others require a prescription. ? Antidepressant [...] Document Reviewed: 08/18/2012 ExitCare? Patient Information ?2014 Next[employer]. This information is not intended to replace [...] Document Reviewed: 12/13/2008 ExitCare? Patient Information ?2015 Nextance. This information is not intended to replace advice given to you by your health care provider. Make sure you discuss any questions you have with yourhealth care provider.[facility] Patient Summaryon [id number] Patient Summary [address] [address] Patient Discharge Instructions Person Information Name: ARIADNA HALEY Age: 38 Years Arrival Date: 01/11/2019 3:44 PM Discharge Diagnosis: 1:Chest pain Primary Care Physician: Charles Nicole DO Provider Information Primary Provider: Orin Browne DO Advanced Switch [employer] Supervisor:None The exam and treatment you received in the Emergency Department were for an urgent problem and are not intended as complete care. It is important that you follow up with a doctor, nurse practitioner,or physician?s assistant counsel for ongoing care. If your symptoms become worse or you do not improve as expected and you are unable to reach your usual health care provider, you should return to the Emergency Department. We are available 24 hours a day. ARIADNA HALEY has been given the following list of patient education materials, prescriptions and follow-up instructions: Follow-up Instructions: With: Address: When: Charles Nicole [address] [place] [address] Business (1) Within 2 to 3 days [...] opioids can be used to help relieve dvvrsoup-va-wleutn pain and are often prescribed following a [...] your community drug take- back program or slinkset mail-back program, or flush them down the toilet, following guidance from the Food and Drug Administration (www.fda.gov/Drugs/ResourcesForYou). ? Visit www.cdc.gov/drugoverdose to learn about the risks of opioids abuse and overdose. ? If you believe you may be struggling with addiction, tell your health care asst and ask for guidance or call [facility]?S National Helpline at 3-407-609-VAMR. l Source: US Department of Health and Human Services/Center for Disease Control & Prevention [facility] Medications Given: Medication Dose Route No medications found. Medication Information: Medications to Continue with No Changes Other Medications metformin (metformin 500 mg ER Tab) 250 Milligram By Mouth 2 times a day. Comment: Pharmacy Information: Thank you for choosing [facility] Patient Education Materials: Smoking Cessation Quitting [...] and skin patches. Some may be available xgvr-tdi-ddvprei and others require a prescription. ? Antidepressant [...] Document Reviewed: 08/18/2012 ExitCare? Patient Information ?2014 Nextance. This information is not intended to replace [...] Document Reviewed: 12/13/2008 ExitCare? Patient Information ?2014 Nextance. This information is not intended to replace advice given to you by your health care provider. Make sure you discuss any questions you have with yourhealth care provider. TERA Dorantes NICOLE B , have received the following patient education materials/instructions and have verbalized understanding: Patient Education Materials: Smoking Cessation; Chest Pain (Nonspecific) Follow-up Instructions: With: Address: When: [place] [address] Business (1) Within 2 to 3 days Comments: Return to ED if symptoms worsen Prescriptions: Patient Signature Date Clinician/Nurse Signature Date 01/11/19 18:42:28NormalCleveland Clinic Children'S Hospital For RehabilitationProgress Note-Nurseon 36-63-7847Befachif Note-NursePt explained discharge instructions and voiced understanding. Pt sts she will follow up with her PCP and denies any furthe questions at this time.NormalCleveland Clinic Children'S Hospital For RehabilitationTroponin 0 Hr.on 73-53-6651Tjzexbri I.cardiac [Mass/Vol]ng/mLNormal<=0.03[facility] Hospital For RehabilitationComment on above:Result Comment: New Troponin Assay 10/05/13 KRISHNA [place] Cutoff value > or = 0.03 ng/mL in conjunction with clinical conditions of myocardial infarction. (www.escardio.org/guidelines)Performed By: #### 29421436, 9718979, 0819058, 7185606, 75309873, 5958841, 6905433, 5143516, 7813138, 63871838, 0520522 #### [facility] Laboratory [address], [place] [address]rDAVhn 65-92-3866GTB/1.73 sq M predicted among blacks MDRD (S/P/Bld) [Vol rate/Area]mL/min/{1.73_m2}Normal>=59[facility] Comment on above:Order Comment: Order added by Discern Expert.Result Comment: eGFR is race adjusted. AA=.Performed By: #### 43953178, 6417203, 4016953, 4884793, 57396143, 0087326, 7290290, 9077121, 0042406, 33017565, 5688343 #### [facility] Laboratory [address], [place] [address]YQG/1.73 sq M predicted among non-blacks MDRD (S/P/Bld) [Vol rate/Area]mL/min/{1.73_m2}Normal>=59[facility] Hospital For RehabilitationComment on above: Order Comment: Order added by Discern Expert.Result Comment: Chronic kidney disease could be indicated at eGFR's of less than 60 mL/min/1.73m2. Kidney failure is indicated at less than 15 mL/min/1.73m2.Performed By: #### 88984822, 5141418, 0563672, 0375601, 08068307, 1143369, 7274969, 9836721, 3874627, 69462598, 8817489 #### [facility] Laboratory [address], [place] [address]AQOLR, LUMBOSACRAL CMPLT(BENDING)on 14-36-1491ZBYBF, LUMBOSACRAL CMPLT(BENDING) Patient Name: ARIADNA HALEY STUDY: SPINE, LUMBOSACRAL; CMPLT(BENDING); 12/05/2018 1:47 pm INDICATION: LUMBAR XR. COMPARISON: None. ACCESSION NUMBER(S): [id number] ORDERING CLINICIAN: KADE EARLY FINDINGS: No lumbar spine fracture. Scattered small endplate osteophytes. Vertebral body and disc space heights are are maintained. 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 No spondylolisthesis. No instability on flexion or extension. IMPRESSION: Degenerative changes of the lumbar spine without instability. Electronically signed by: EARNESTINE MANUEL MDBryn [facility]r [facility] Coding Summary.on 33-57-5158Gvhacr Summary.CODING DATE: 09/15/2018 FINAL [facility] STATUS: Home (Routine DC) PAYOR: Medicaid [...] F17.210 Nicotine dependence, cigarettes, uncomplicated Z79.899 Other care home (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 However, the narrative phrase printed from the coding software may appear abbreviated, or result in slightly different terminology. Coded By: Luz Judd Date Saved: 09/15/2018 07:15 amNormalCleveland Clinic Children'S Hospital For RehabilitationAuto Diffon 71-20-8055Rweaksoah/100 WBC (Bld)0.6 %Normal0.0-2.0[facility] Comment on above:Order Comment: Order Added by Discern Expert.Performed By: #### 52159413, 8940444, 0315042, 5905610, 08904187, 5318125, 7313066, 7727112, 7698589, 46619580, 0469387 #### [facility] Laboratory [address], [place] [address]Jmxjacnat/Leukocytes Auto (Bld) [Pure # fraction]0.1 E9/LNormal 0.0-0.2FDoctors HospitalComment on above:Order Comment: Order Added by Discern Expert.Performed By: #### 92908266, 3527452, 1886971, 7623072, 97142687, 2166074, 5544509, 1855894, 8075670, 92418444, 3051172 #### [facility] Laboratory [address], [place] [address]Xksftimwgtm/100 WBC (Bld)2.2 %Normal0.0-8.0[facility] For RehabilitationComment on above:Order Comment: Order Added by Discern Expert.Performed By: #### 46560953, 1430597, 6187875, 3850930, 44398192, 8934932, 7405404, 6445191, 4856962, 28937674, 2498166 #### [facility] Laboratory [address], [place] [address]Rozsqonlzby/Leukocytes Auto (Bld) [Pure # fraction]0.2 E9/L Normal0.0-0.5FDoctors HospitalComment on above:Order Comment: Order Added by Discern Expert.Performed By: #### 09095003, 8223746, 4287426, 7517188, 68506119, 9910206, 5038621, 4132927, 7675420, 00883151, 7398747 #### [facility] Laboratory [address], [place] [address]Knrlqbnorcn/100 WBC (Bld)30.6 %Nsptlz41.0-50.0[facility] For RehabilitationComment on above:Order Comment: Order Added by Discern Expert. Performed By: #### 43501437, 5408369, 0932933, 2627504, 98249984, 8726744, 1901009, 7475556, 3545009, 02901337, 8443578 #### [facility] Laboratory [address], [place] [address]Yuawzqfzqme/Leukocytes Auto (Bld) [Pure # fraction]3.0 E9/L Normal1.0-4.0[facility] Hospital For RehabilitationComment on above:Order Comment: Order Added by Discern Expert.Performed By: #### 52792771, 3220270, 2204666, 8115750, 88860534, 4808563, 8441987, 0093145, 2383513, 04667585, 1232459 #### [facility] Laboratory [address], [place] [address]Klqufhzea/100 WBC (Bld)7.2 %Normal4.0-14.0[facility] For RehabilitationComment on above:Order Comment: Order Added by Discern Expert.Performed By: #### 75453424, 9526108, 2646282, 1975649, 57443654, 9329624, 4898628, 0827243, 4733166, 21067245, 2060935 #### [facility] Laboratory [address], [place] [address]Iyosnseli/Leukocytes Auto (Bld) [Pure # fraction]0.7 E9/LNormal 0.2-1.0[facility] Hospital For RehabilitationComment on above:Order Comment: Order Added by Discern Expert.Performed By: #### 38570871, 3220770, 9676035, 9325008, 65155550, 7979222, 7473922, 1330170, 7030308, 27041491, 8226140 #### [facility] Laboratory [address] [address]Xcvpuegylod/100 WBC (Bld)59.4 %Udnxvs36.0-75.0[facility] Hospital For RehabilitationComment on above:Order Comment: Order Added by Discern Expert. Performed By: #### [id number], 7506389, 3486618, 1040751, 41568668, 8762155, 2911149, 5619284, 0236701, 14782098, 4752642 #### [facility] [address], [place] [address]Jxylgigxhau/Leukocytes Auto (Bld) [Pure # fraction]5.9 E9/L Normal2.0-7.5FDoctors HospitalComment on above:Order Comment: Order Added by Discern Expert.Performed By: #### 69928808, 9232096, 4772415, 3728617, 79530812, 9816553, 5959382, 7667179, 7670694, 21333078, 4352833 #### [facility] Laboratory [address], [place] [address]PBOpo 06-58-3586Cdudyzmvax [Mass/Vol]0.6 mg/dLNormal0.5-1.3 [facility] For RehabilitationComment on above:Performed By: #### 85041080, 8574350, 0712440, 3489461, 82883727, 0430966, 1754878, 6857200, 1769027, 01287166, 5131936 #### [facility] [address], [place] [address]Wdgb nitrogen [Mass/Vol]15 mg/dLNormal5-21[facility] For RehabilitationComment on above:Performed By: #### 23463854, 4578660, 6954704, 5957224, 77980413, 5258569, 4858076, 3285184, 3786446, 39714561, 7494145 #### [facility] [address], [place] [address]Jisu nitrogen/Creatinine [Mass ratio]25 No JosxjSnah02-02QxnowuCleveland Clinic Children'S Hospital For RehabilitationComment on above:Performed By: #### 39694309, 1400876, 0931836, 5388390, 34132796, 7737393, 8477630, 1686700, 8653518, 49319571, 7417171 #### [facility] [address], [place] [address]Syjpg gap [Moles/Vol]13 mmol/LNormal6-16[facility] For RehabilitationComment on above:Performed By: #### 44736797, 4249734, 7968795, 9420781, 36230367, 4877542, 9051594, 7875737, 0533088, 96164144, 4589636 #### [facility] [address], [place] [address]Wfxoyvl [Mass/Vol]9.5 mg/dLNormal8.9-11.1FDoctors HospitalComment on above:Performed By: #### 23302400, 3302378, 5736506, 4629618, 65060663, 8993208, 5287418, 3954100, 6812005, 97318657, 4571016 #### [facility] [address], [place] [address]Lmmladdv [Moles/Vol]103 mmol/WBwwkry745-400ZplylxCleveland Clinic Children'S Hospital For RehabilitationComment on above:Performed By: #### 16959032, 5975599, 3999007, 0364095, 05735240, 7381578, 8793746, 3586293, 0051467, 03915793, 3029481 #### [facility] [address], [place] [address]WA6 [Moles/Vol]24 mmol/CQgutnn57-66HvwnbyCleveland Clinic Children'S Hospital For Rehabilitation Comment on above:Performed By: #### 54562953, 3632015, 1850743, 2952298, 86756234, 5810724, 1421636, 2579787, 2838509, 82003423, 1654536 #### [facility] [address], [place] [address]Evnxxjd [Mass/Vol]102 mg/oIVkncjc81-954ArzkbbCleveland Clinic Children'S Hospital For RehabilitationComment on above:Result Comment: If this glucose result represents a fasting glucose, interpretation should refer tothe following reference range: 55-99 mg/dLPerformed By: #### 51430649, 7313126, 9398223, 0010404, 62010379, 7844194, 2309406, 9363340, 6480221, 21133357, 5586294 #### [facility] [address], [place] [address]Gsbsvnjxh [Moles/Vol]3.6 mmol/LNormal3.5-5.3FDoctors HospitalComment on above:Performed By: #### 97463835, 6422451, 4975075, 5826262, 23970722, 0342656, 9856981, 8841845, 9800712, 19654052, 7743655 #### [facility] Laboratory [address], [place] [address]Rhwlfh [Moles/Vol]136 mmol/TDvmmxe790-316TdlhmmThe Sheppard & Enoch Pratt HospitalComment on above:Performed By: #### 67850054, 5852049, 8833899, 6877018, 00558792, 7372673, 9129454, 8015548, 2889764, 17036233, 2240905 #### [facility] Laboratory [address], [place] [address]TLL w/ Auto Diffon 13-31-9536Ufdvjosknfv distribution width (RBC) [Ratio]14.2 %Jcijtw89.9-14.2FDoctors HospitalComment on above: Performed By: #### 35903297, 8341328, 0347258, 1657234, 52488672, 2618423, 1496871, 3751093, 3217286, 81342812, 9360434 #### [facility] [address], [place] [address]Kppnahkzky (Bld) [Volume fraction]39.4 %Xfxacc42.0-46.0[facility] For RehabilitationComment on above:Performed By: #### 51417835, 4384969, 2503445, 4964234, 39504063, 5993982, 9357052, 6658643, 2842683, 07897071, 4470891 #### [facility] [address], [place] [address]Hqvadfmqug (Bld) [Mass/Vol]13.3 g/hKZqiioc50.0-16.0[facility] For RehabilitationComment on above:Performed By: #### 44221871, 6672111, 4194499, 9719405, 00237081, 6086956, 2169469, 1438288, 0969941, 85993276, 3855228 #### [facility] Laboratory [address], [place] [address]LVR (RBC) [Entitic mass]29.2 ymAmpqml01.0-34.0[facility] For RehabilitationComment on above:Performed By: #### 84733880, 1522619, 1125176, 9525002, 26311806, 8245538, 7065905, 1885443, 5386719, 26888252, 0685330 #### [facility] [address], [place] [address]BOID (RBC) [Mass/Vol]33.8 g/zEKxdujt55.3-35.7FDoctors HospitalComment on above:Performed By: #### 01738800, 2772300, 4128249, 0161528, 30138380, 0615400, 8319449, 4909705, 6781314, 25042853, 7124188 #### [facility] [address], [place] [address]TRU (RBC) [Entitic vol]86.6 vHZjxixg18.0-100.0[facility] For RehabilitationComment on above:Performed By: #### 43332880, 5195897, 7995767, 1175268, 75767394, 8005697, 9717276, 8438587, 2302839, 08224452, 0204593 #### [facility] [address], [place] [address]Vcjveazk mean volume (Bld) [Entitic vol]8.8 fLNormal6.4-10.8 [facility] For RehabilitationComment on above:Performed By: #### 85057375, 3497846, 3782727, 7216803, 18267761, 8512607, 9298362, 4626512, 0478852, 55051740, 8484321 #### [facility] Laboratory [address], [place] [address]Ytmvwsupa (Bld) [#/Vol]307.0 E9/RUvqixu771.0-500.0[facility] For RehabilitationComment on above:Performed By: #### 61541498, 2789359, 3396862, 1579128, 32348566, 1389876, 8787076, 7492317, 6372904, 75406136, 5854176 #### [facility] Laboratory [address] [place] [address]ZXF (Bld) [#/Vol]4.6 E12/LNormal4.3-5.9[facility] For RehabilitationComment on above:Performed By: #### 97772632, 6914005, 2370868, 3226233, 54545035, 6546149, 0366491, 6795338, 0406789, 17266057, 8841088 #### [facility] Laboratory [address] [place] [address]ZXC corrected for nucl RBC Auto (Bld) [#/Vol]9.9 E9/LNormal 4.0-11.0[facility] For RehabilitationComment on above:Performed By: #### 30221794, 1611548, 8916878, 3060247, 88411984, 3609754, 1623287, 0824718, 7735394, 68689448, 4434033 #### [facility] [address] [place] [address]KZpm 39-09-2246UB [Catalytic activity/Vol]53 Int._Unit/LNormal 14-261[facility] For RehabilitationComment on above:Performed By: #### 26546231, 4713073, 3913419, 8007835, 18181685, 4312616, 8921324, 3171791, 5412547, 24750818, 3289713 #### [facility] Laboratory [address] [place] [address]LA Clinical Summaryon 11-61-7503PE Clinical Summary [address] [address] ED Clinical Summary Person Information Name: ARIADNA HALEY/[facility] Age: 37 Years : 1980 12:00 AM Sex: Female Language: Burmese PCP: Charles Nicole DO Marital Status: Single Phone: [phone] Visit Id: Visit Reason: Anxiety; Paraesthesia; NUMBNESS [...] 09/14/2018 12:17 AM 09/14/2018 12:17 AM ADDRESS: [address] [place] [id number] [facility] DOC NOTES: MEDICAL INFORMATION: Prescriptions Given: Prescription Display gabapentin (gabapentin 100 mg Cap) 100 mg = 1 cap(s), Oral, Daily, X 7 day(s), # 7 cap(s), Refills(s) 0, Pharmacy: [facility] gabapentin (gabapentin 100 mg Cap) 100 mg = 1 cap(s), Oral, Daily, X 7 day(s), # 7 cap(s), Refills(s) 0, Pharmacy: [facility]/pharmacy #0002 magnesium oxide (magnesium oxide 400 mg Tab) 400 mg = 1 tab(s), Oral, Daily, X 7 day(s), # 7 tab(s), Refills(s) 0, Pharmacy: [facility] magnesium oxide (magnesium oxide 400 mg Tab) 400 mg = 1 tab(s), Oral, Daily, X 7 day(s), # 7 tab(s), Refills(s) 0, Pharmacy: [facility]/pharmacy #5804 Home Meds Display metformin (metformin 500 mg ER Tab) 250 mg, Oral, BID, Refills(s) 0 PATIENT EDUCATION INFORMATION: Instructions: Paresthesia, Wtex-hv-Tppm; Restless Legs Syndrome Follow up: With: Address: [facility] [address] Business (1) Within 1 to 2 days Comments: neurologist you may also follow up with him With: Address: When: [address] [address] Business (1) Within 1 to 2 days Comments: Return to ED if symptoms worsen DIAGNOSIS: 1:Restless leg syndromeNormalFisher Fallon Medical CenterED Note-Nursingon 33-00-3597BQ Note-NursingPt up to RR, gait steady.[facility] CenterED Note-NursingAware of need for urine specimen, denies urge at present, states will notify when able to produce sample, will monitor.NormalGlenbeigh Hospital Medical CenterED Note-Physicianon 04-59-8244GT Note-PhysicianBasic Information Time Seen: Génesis Lozoya DO [...] day(s), # 7 cap(s), Refills(s) 0, Pharmacy: [facility]/pharmacy #6177 magnesium oxide, 400 mg = 1 tab(s), Oral, Daily, X 7 day(s), # 7 tab(s), Refills(s) 0, Pharmacy: [facility]/pharmacy #6177 Sodium Chloride 0.9% intravenous solution 1,000 [...] Sayda Kelley Within 1 to [address] [address] ([facility] Additional Instructions: neurologist you may also follow up with him Charles Nicole Within 1 to [address] [place] [address] [facility] (1) Additional Instructions: Return to ED if symptoms worsen Patient Education Paresthesia, Liim-hj-Hczx Restless Legs Syndrome Problem List/Past Medical History [...] Lymph Auto: 30.6 % (09/13/18 23:03:00 EDT) Presidio Auto: 7.2 % (09/13/18 23:03:00 EDT) Eos Auto: 2.2 % (09/13/18 23:03:00 EDT) Basophil Auto: 0.6 % (09/13/18 23:03:00 EDT) Neutro Absolute: 5.9 E9/L (09/13/18 23:03:00 EDT) Lymph Absolute: 3 E9/L (09/13/18 23:03:00 EDT) [place]idio Absolute: 0.7 E9/L (09/13/18 23:03:00 EDT) Eos [...] EDT) Diagnostic Results No qualifying data available.NormalFisher Fallon Medical CenterComment on above: Result Comment: Electronically Signed By: Génesis Lozoya DO\.dyan\Date and Time Signed: 09/14/18 01:59 EDTED Patient Education Noteon 17-26-7356PH Patient Education NoteFamily Medicine Paresthesia Paresthesia is [...] Document Reviewed: 01/29/2012 ExitCare? Patient Information ?2014 Nextance. This information is not intended to replace [...] ? Drawing. ? Crawling. ? Worming. ? [place]. ? Tingling. ? Pins and needles. [...] Document Reviewed: 08/06/2011 ExitCare? Patient Information ?2014 Nextance. This information is not intended to replace advice given to you by your health care provider. Make sure you discuss any questions you have with yourhealth care provider.[facility] Patient Summaryon [id number] Patient Summary [place] [address] Patient Discharge Instructions Person Information Name: ARIADNA HALEY Age: 37 Years Arrival Date: 09/13/2018 10:16 PM Discharge Diagnosis: 1:Restless leg syndrome Primary Care Physician: Charles Nicole DO Provider Information Primary Provider: Génesis Lozoya DO [employer] Supervisor:None The exam and treatment you received in the Emergency Department were for an urgent problem and are not intended as complete care. It is important that you follow up with a doctor, nurse practitioner,or physician?s assistant counsel for ongoing care. If your symptoms become worse or you do not improve as expected and you are unable to reach your usual health care provider, you should return to the Emergency Department. We are available 24 hours a day. ARIADNA HALEY has been given the following list of patient education materials, prescriptions and follow-up instructions: Follow-up Instructions: With: Address: When: Say[facility] Kelley [facility], [address] [place], [place] [address], [place] [address] Business (1) Within 1 to 2 days Comments: neurologist you may also follow up with him With: Address: When: [place] [address] [place] [address] Business (1) Within 1 to 2 days Comments: Return to ED if symptoms worsen In the event that this physician does not participate in your insurance network, please consult with your insurance company to find a nearby participating provider. Patient Education Materials: Paresthesia, Pute-aa-Ylci; Restless Legs Syndrome A MESSAGE TO ALL PATIENTS REGARDING OPIOIDS PRESCRIPTION OPIOIDS: WHAT YOU NEED TO KNOW Prescription opioids can be used to help relieve eaccuuoq-tn-dunidj pain and are often prescribed following a [...] your community drug take- back program or yourLet's Gift ItrmeriQoo mail-back program, or flush them down the toilet, following guidance from the Food and Drug Administration (www.fda.gov/Drugs/ResourcesForYou). ? Visit www.cdc.gov/drugoverdose to learn about the risks of opioids abuse and overdose. ? If you believe you may be struggling with addiction, tell your health care asst and ask for guidance or call SAMHSA?S National Helpline at 9-410-300-CJVD. v Source: US Department of Health and Human Services/Center for Disease Control & Prevention [facility] Medications Given: Medication Dose Route Sodium Chloride 0.9% intravenous solution 1000.00 mL Initial Volume 1000.00 mL/hr IV Piggyback Left Mid Forearm Medication Information: New Medications [facility]/pharmacy #[id number], [address] [id number], [phone] gabapentin (gabapentin 100 mg Cap) 1 Capsules By Mouth every day for 7 Days. Refills: 0. magnesium oxide (magnesium oxide 400 mg Tab) 1 Tabs By Mouth every day for 7 Days. Refills: 0. [facility], [address] [facility] [place] [id number], [phone] gabapentin (gabapentin 100 mg Cap) 1 Capsules By Mouth every day for 7 Days. Refills: 0. magnesium oxide (magnesium oxide 400 mg Tab) 1 Tabs By Mouth every day for 7 Days. Refills: 0. Medications to Continue with No Changes Other Medications metformin (metformin 500 mg ER Tab) 250 Milligram By Mouth 2 times a day. Comment: Pharmacy Information: Thank you for choosing [facility] Patient Education Materials: Paresthesia Paresthesia is [...] Document Reviewed: 01/29/2012 ExitCare? Patient Information ?2015 Nextance. This information is not intended to replace [...] ? Drawing. ? Crawling. ? Worming. ? [place]. ? Tingling. ? Pins and needles. [...] Document Reviewed: 08/06/2011 ExitCare? Patient Information ?2014 Nextance. This information is not intended to replace advice given to you by your health care provider. Make sure you discuss any questions you have with yourhealth care provider. TERA Dorantes NICOLE B , have received the following patient education materials/instructions and have verbalized understanding: Patient Education Materials: Paresthesia, Hfah-lb-Lcjv; Restless Legs Syndrome Follow-up Instructions: With: Address: When: Sayda Warren [address] [address] Business (1) Within 1 to 2 days Comments: neurologist you may also follow up with him With: Address: When: [address] [address] [employer] (1) Within 1 to 2 days Comments: Return to ED if symptoms worsen Prescriptions: [gabapentin (gabapentin 100 mg Cap)] [gabapentin (gabapentin 100 mg Cap)] [magnesium oxide (magnesium oxide 400 mg Tab)] [magnesium oxide (magnesium oxide 400 mg Tab)] Patient Signature Date Clinician/Nurse Signature Date 09/14/18 00:21:38NormalCleveland Clinic Children'S Hospital For RehabilitationHep Func Panelon 09-14-2018 Bilirubin.direct [Mass/Vol]UTCAbnormal0.1-0.9[facility] For RehabilitationComment on above:Result Comment: Result verified by Discern Rule. Performed result UTC (Unable to Calculate) was sent as an Alpha code due the inability to calculate a valid numeric value.Performed By: #### [id number], 5328054, 0712736, 9549821, 43778894, 1863493, 8282960, 9274772, 6939403, 27074899, 8274549 #### [facility] Laboratory [address] [place] [address]Mhejwvl [Mass/Vol]1.1 g/dLNormal1.1-2.2FDoctors HospitalComment on above:Performed By: #### 94127395, 6303928, 5285428, 8974091, 62531024, 4949041, 4670247, 4525389, 4274682, 19836674, 2419939 #### [facility] Laboratory [address] [place] [address]Gmdhrhm [Mass/Vol]4.1 g/dLNormal3.3-5.0[facility] For RehabilitationComment on above:Performed By: #### 48354629, 5662410, 0072044, 9133900, 44306374, 8816106, 7699036, 3908626, 4689331, 68576982, 3143930 #### [facility] Laboratory [address] [place] [address]QYT [Catalytic activity/Vol]69 Int._Unit/RKgbmgn33-71FcknzvCleveland Clinic Children'S Hospital For RehabilitationComment on above:Performed By: #### 31218087, 2613181, 7728461, 2275049, 06359501, 9020680, 2725814, 5025525, 9932755, 96867629, 5356475 #### [facility] Laboratory [address] [place] [address]CML No additional P-5'-P [Catalytic activity/Vol]27 Int._Unit/L Normal6-46[facility] For RehabilitationComment on above:Performed By: #### 99882016, 0301573, 3208270, 9893763, 50558230, 4360546, 4166902, 5931187, 6376523, 81567768, 1087171 #### [facility] Laboratory [address] [place] [address]ZZH [Catalytic activity/Vol]16 Int._Unit/LNormal5-43[facility] For RehabilitationComment on above:Performed By: #### 55404403, 5272895, 1578889, 2534746, 86954198, 1699947, 1601412, 6716005, 6814955, 29974053, 6615851 #### [facility] Laboratory [address], [place] [address]Wqumxkdfd [Mass/Vol]0.5 mg/dLNormal0.0-1.1FDoctors HospitalComment on above:Performed By: #### 43891525, 0194152, 3915867, 6938739, 07062244, 0796872, 6968679, 7470958, 6454427, 47322082, 1860150 #### [facility] Laboratory [address], [place] [address]Wqbmnnqif.direct [Mass/Vol]mg/dLNormal0.1-0.4FDoctors HospitalComment on above:Performed By: #### 23835588, 1757500, 1714157, 9914214, 35576835, 0667505, 2771764, 5004431, 2801584, 22551323, 2868243 #### [facility] Laboratory [address], [place] [address]Ixocrblv (S) [Mass/Vol]3.7 g/dLNormal1.4-4.0[facility] For RehabilitationComment on above:Performed By: #### 78714885, 3956268, 7303375, 9528257, 52129664, 5384090, 7292869, 6685139, 4533845, 40488618, 0674064 #### [facility] Laboratory [address], [place] [address]Uvnqwbb [Mass/Vol]7.8 g/dLNormal6.0-7.8[facility] For RehabilitationComment on above:Performed By: #### 17972434, 1274631, 4938699, 4048182, 36954944, 1838134, 8346855, 8446349, 7897613, 96170195, 5296668 #### [facility] Laboratory [address], [place] [address]Vugkvpiwqqn 48-23-3928Avulvfvae [Mass/Vol]1.9 mg/dLNormal 1.3-2.4FDoctors HospitalComment on above:Performed By: #### 12880135, 7367997, 7742849, 1926677, 47337948, 1587450, 2519201, 7950910, 4769821, 58218120, 9231621 #### [facility] Laboratory [address], [place] [address]Ktiwgcauwzb 37-28-0831Rotjqedzb [Mass/Vol]9 ng/mLNormal<=69 [facility] For RehabilitationComment on above:Performed By: #### 27672408, 6450532, 4289630, 7377796, 00777137, 7580502, 9254695, 7939078, 2716522, 67910270, 2107074 #### [facility] Laboratory [address], [place] [address]XQ & PTTon 48-24-5398cBHY Coag (PPP) [Time]34.5 second(s)Normal 25.1-36.5FDoctors HospitalComment on above:Result Comment: Heparin therapeutic range (represented by Anti-Factor Xa activity of 0.2 - 0.4 U/mL) corresponds to PTT of 56.6 - 109.0 sec.Performed By: #### 88083513, 7380655, 8787924, 0820424, 89387138, 5976732, 8252306, 9991471, 5977210, 57424783, 2314799 #### [facility] Laboratory [address], [place] [address]CTF Coag (PPP) [Relative time]1.0 {INR}[facility] Hospital For RehabilitationComment on above:Result Comment: INR results are specifically intended to assess patients stabilized on long-term Anticoagulation therapy suggested INR?s ?Less Intensive Anticoagulation? 2.0 ? 3.0 Conventional Range 3.0 ? 4.5Performed By: #### 52889253, 0480275, 1849625, 4118211, 80232678, 5845697, 5950048, 4900253, 6294253, 18207738, 0432747 #### [facility] [address], [place] [address]QL Coag (PPP) [Time]11.2 second(s)Ofplit72.2-12.9[facility] For RehabilitationComment on above:Performed By: #### 17825524, 9255816, 9603450, 4981233, 91689803, 0279325, 6759363, 4236765, 1807258, 70942010, 0688443 #### [facility] [address], [place] [address]Szzqudggsejt 13-68-2776Qsbhwiruj [Mass/Vol]3.8 mg/dLNormal 1.9-4.6FDoctors HospitalComment on above:Performed By: #### 35481861, 8027986, 5846978, 0039102, 39695137, 2225945, 8183250, 7486975, 3134555, 65184830, 4406878 #### [facility] [address], [place] [address]Dygphbgr 0 Hr.on 32-61-5482Iejtggla I.cardiac [Mass/Vol]ng/mL Normal<=0.03[facility] For RehabilitationComment on above:Result Comment: New Troponin Assay 10/05/13 KRISHNA SC Cutoff value > or = 0.03 ng/mL in conjunction with clinical conditions of myocardial infarction. (www.escardio.org/guidelines)Performed By: #### 60502770, 3734857, 8830952, 0516981, 63646329, 5994262, 3981474, 1537381, 9724405, 68181204, 5209148 #### [facility] [address], [place] [address]OM With Cult Reflexon 52-42-8319Bflvdcyj LM Ql (Urine sed)TRACE NormalTraceFisher Atul Medical CenterComment on above:Performed By: #### 58462503, 8842824, 4055222, 6083884, 53507307, 4422105, 9016259, 8091386, 7694424, 66564004, 2473617 #### [facility] [address], [place] [address]Zpxnfypgf Ql (U)NegativeNormalNegativeFormerly Mcdowell Hospitaler [facility] CenterComment on above:Performed By: #### 35747391, 5220701, 9289167, 8324129, 22131746, 1418221, 3015221, 5151556, 9766634, 39922699, 2194471 #### [facility] Laboratory [address], [place] [address]Sadnbgw (U)CLEARNormalClearCleveland Clinic Children'S Hospital For RehabilitationComment on above:Performed By: #### 60627665, 9971401, 5812124, 3116915, 71525148, 8685635, 8279114, 3556085, 8528485, 51494320, 1547014 #### [facility] [address], [place] [address]Oytsc (U)YELLOWNormalYellowCleveland Clinic Children'S Hospital For RehabilitationComment on above:Performed By: #### 14273000, 7834192, 0460234, 1897893, 35613383, 5005697, 3985690, 0124291, 1878907, [id number], [id number] #### [facility] [address] [place] [address]Qetdfefvag cells.squamous LM.HPF (Urine sed) [#/Area]0-2Normal 0-2Fisher [facility] CenterComment on above:Performed By: #### [id number], 8089853, 7866083, 3928138, 04409739, 3813983, 4981720, 2251290, 0762011, 87256652, 2011398 #### [facility] [address], [place] [address]Oeqncpx Test strip (U) [Mass/Vol]NegativeNormalNegativeCleveland Clinic Children'S Hospital For RehabilitationComment on above:Performed By: #### [id number], 9998959, 2926394, 7241112, 95740565, 5900895, 6904370, 7319599, 0231537, 07374488, 8552953 #### [facility] [address], [place] [address]Bfbsylongu Ql (U)NegativeNormalNegativeCleveland Clinic Children'S Hospital For RehabilitationComment on above:Performed By: #### [id number], 5468620, 4746164, 3698091, 04437169, 0945709, 3554891, 4939929, 6703527, 06758918, 3914662 #### [facility] [address], [place] [address]Gmmlamw (U) [Mass/Vol]NegativeNormalNegMercy Health St. Elizabeth Boardman HospitalComment on above:Performed By: #### [id number], 3063887, 6038519, 4012613, 76164935, 5241912, 8432027, 7254703, 7798199, 56393950, 6051103 #### [facility] [address], [place] [address]Wgjwngv.plasma/[place].RBC (Bld) [Mass ratio]9-9Phhnmn6-6Vxgjnn [facility] CenterComment on above:Performed By: #### [id number], 5894111, 6063861, 0799167, 58671531, 6557477, 5786020, 3431218, 6204628, 84634134, 5526847 #### [facility] [address], [place] [address]Ujxgb Ql (Urine sed)TRACENormWilson [facility] Comment on above:Performed By: #### [id number], 8580499, 0408334, 5861090, 87491015, 8858502, 7925198, 1144890, 6873256, 14364675, 0888684 #### [facility] [address], [place] [address]Xgpqzhe Ql (U)NegativeNormalNegMercy Health St. [facility] Comment on above:Performed By: #### [id number], 1186016, 4493226, 3547780, 36428581, 6859832, 7085853, 6279440, 2541482, 59341616, 0665892 #### [facility] [address], [place] [address]sQ (U)6.0 [pH]5.0-9.0[facility] For RehabilitationComment on above:Performed By: #### [id number], 6650225, 4165743, 0649121, 58232371, 6343849, 4509689, 3013937, 7761569, 81251246, 0448936 #### [facility] [address] [place] [address]Jqygbez (U) [Mass/Vol]NegativeNormalNegativeCleveland Clinic Children'S Hospital For RehabilitationComment on above:Performed By: #### [id number], 7792932, 8337447, 3300804, 38168864, 3519953, 5941895, 9046469, 5074544, 36866785, 8000563 #### [facility] [address] [place] [address]Ulnpgegs gravity (U) [Rel density]1.0101.005-1.030C[facility] For RehabilitationComment on above:Performed By: #### [id number], 7735486, 2755553, 3189775, 33178811, 3232549, 8444156, 6433429, 6639710, 16752318, 7746705 #### [facility] [address], [place] [address]WA Spec DescClean CatchNormWilson Street HospitalComment on above:Performed By: #### [id number], 8393302, 4733787, 7444997, 79261748, 6490782, 5831689, 4287143, 0595383, 03012342, 6759117 #### [facility] [address], [place] [address]Lpgnorgwonoy Qn (U)0.2 {Carmella'U}/dLNormal0.0-1.0[facility] For RehabilitationComment on above:Performed By: #### [id number], 1208917, 3619952, 5323930, 89154044, 2187100, 7983446, 2041417, 2151796, 42368893, 1593778 #### [facility] [address], [place] [address]FVZ Auto Ql (U)NegativeNormalNegativeCleveland Clinic Children'S Hospital For RehabilitationComment on above:Performed By: #### [id number], 0233071, 4678154, 3829096, 82287572, 6824107, 1859591, 2471397, 7135672, 61822514, 0016727 #### [facility] [address], [place] [address]TFK LM.HPF (Urine sed) [#/Area]4-8Adqtid7-4UodmkvDoctors HospitalComment on above:Performed By: #### 11502185, 5803555, 5151544, 5128210, 46352811, 5571565, 6203645, 6324917, 5749530, 89992272, 4632171 #### [facility] [address], [place] [address]FG Chest Single Viewon 36-88-7765NM Chest Single ViewExam Date/Time: 09/13/2018 23:44 EDT [...] Sanjay Alcocer M.D. Transcribed by: minoo Technologist: APNoalCleveland Clinic Children'S Hospital For RehabilitationXR FOOT LEFT (MIN 3 VIEWS)on 49-85-1055MI FOOT LEFT (MIN 3 VIEWS)Radiology exam is complete. No Radiologist dictation. Please follow up with ordering provider. Final resultNormalLety City Of Hope, PhoenixXR FOOT RIGHT (MIN 3 VIEWS)on 37-85-2846CB FOOT RIGHT (MIN 3 VIEWS)Radiology exam is complete. No Radiologist dictation. Please follow up with ordering provider. Final resultNormalLety City Of Hope, PhoenixeGFRon 92-15-3525UQF/1.73 sq M predicted among blacks MDRD (S/P/Bld) [Vol rate/Area]mL/min/{1.73_m2}Normal>=59C[facility] For RehabilitationComment on above:Order Comment: Order added by Discern Expert.Result Comment: eGFR is race adjusted. AA=.Performed By: #### [id number], 3595759, 0684480, 8512869, 29264275, 0067091, 0884070, 7972268, 8160601, 28021562, 7210309 #### [facility] [address], [place] [address]ANV/1.73 sq M predicted among non-blacks MDRD (S/P/Bld) [Vol rate/Area]mL/min/{1.73_m2}Normal>=59[facility] For RehabilitationComment on above: Order Comment: Order added by Discern Expert.Result Comment: Chronic kidney disease could be indicated at eGFR's of less than 60 mL/min/1.73m2. Kidney failure is indicated at less than 15 mL/min/1.73m2.Performed By: #### [id number], 9894806, 8332991, 2016523, 20851788, 7222903, 3992363, 7567480, 3591126, 14789547, 9859614 #### [facility] [address] [place] [address] Vital Signs Date TimeVital SignValuePerforming JcupinleuWpqetsgv57-45-8823 11:52-0400Body ucbfgjbjjal10.6 [degF]Tab May MD Work Phone: [facility] [employer] Yfpixd73-56-0902 11:52-0400Body weight 131.81 kgTab May MD Work Phone: 1(413)[address] [place], [place] 4606310-22-2025 11:52-0400Diastolic blood kawkkehq09 mm[Hg]Tab May MD Work Phone: 1(196)[address] [place], [place] 4606310-22-2025 11:52-0400Heart rate95 /Keshia May MD Work Phone: 1(407)[address] [place], [place] 4606310-22-2025 11:52-0400Respiratory rate18 /Keshia May MD Work Phone: 1(917)[address] [place], [place] 4606310-22-2025 11:52-6621ZlR9% (BldA) [Mass fraction]96 %Tab May MD Work Phone: 1(817)[address] [place], [place] 4606310-22-2025 11:52-0400Systolic blood mm[Hg]Tab May MD Work Phone: 1(784)[address] [place], [place] 4606310-21-2025 09:08-0400Diastolic blood cixpkmwy92 mm[Hg]Gay Britt LOBSTERMAN-C Work Phone: 1(471)380-[address] [place], [place] 2796510-21-2025 09:08-0400 Heart rate82 /minPamela Britt LOBSTERMAN-C Work Phone: 1(207)[address] [place], [place] 7953010-21-2025 09:08-0400 SaO2% (BldA) [Mass fraction]97 %Gay Britt LOBSTERMAN-C Work Phone: 1(479)241-[address] [place], [place] 2796510-21-2025 09:08-0400 Systolic blood yavmlesu195 mm[Hg]Gay Britt LOBSTERMAN-C Work Phone: 1(181)824-[address] [place], [place] 2796510-10-2025 17:29-0400 Diastolic blood yvxensqj74 mm[Hg]Gay Britt LOBSTERMAN-C Work Phone: 1(698)420-[address] [place], [place] 2796510-10-2025 17:29-0400 Heart rate84 /minPamela Britt LOBSTERMAN-C Work Phone: 1(659)635-[address] [place], [place] 2796510-10-2025 17:29-0400 Respiratory rate16 /minPamela Britt LOBSTERMAN-C Work Phone: 1(419)[address]10-10-2025 17:29-0400 SaO2% (BldA) [Mass fraction]97 %Gay Britt LOBSTERMAN-C Work Phone: 1(419)[address]10-10-2025 17:29-0400 Systolic blood mmlkrkli528 mm[Hg]Gay Britt LOBSTERMAN-C Work Phone: 1(419)[address] [place], [place] 7953010-10-2025 15:06-0400 Body feyhix138.18 cmPamela Britt LOBSTERMAN-C Work Phone: 1(419)[address] [place], [place] 7953010-10-2025 15:06-0400 Body .4 [degF]Gay Britt LOBSTERMAN-C Work Phone: 1(419)[address] [place], [place] 7953010-10-2025 15:06-0400 Body cyswgf481.27 kgPamela Britt LOBSTERMAN-C Work Phone: 1(419)[address] [place], [place] 7953010-08-2025 13:34-0400 Body ezofje824.18 cmPamela Britt LOBSTERMAN-C Work Phone: 1(419)[address] [place], [place] 7953010-08-2025 13:34-0400 Body mass index (BMI) [Ratio]43.8 kg/k7Gvpmww Britt LOBSTERMAN-C Work Phone: 1(419)[address] [place], [place] 7953010-08-2025 13:34-0400 Body jlinir749 kgPamela Britt LOBSTERMAN-C Work Phone: 1(419)[address] [place], [place] 7953010-08-2025 13:34-0400 Diastolic blood ykmmtlvs73 mm[Hg]Gay Britt LOBSTERMAN-C Work Phone: 1(419)[address] [place], [place] 7953010-08-2025 13:34-0400 Heart rate99 /minPamela Britt LOBSTERMAN-C Work Phone: 1(419)[address] [place], [place] 7953010-08-2025 13:34-0400 Respiratory rate18 /minPamela Britt LOBSTERMAN-C Work Phone: 1(419)[address] [place], [place] 7953010-08-2025 13:34-0400 SaO2% (BldA) [Mass fraction]95 %Gay De La Torre LOBSTERMAN-C Work Phone: [facility]10-08-2025 13:34-0400 Systolic blood drhpaqzm143 mm[Hg]Gay De La Torre LOBSTERMAN-C Work Phone: 1(929)6381990[facility]10-08-2025 09:25-0400 Body cedgvv825.2 Bruno Pacheco MD Work Phone: 1(377)[address] [place], [place] 2667810-08-2025 09:25-0400Body mass index (BMI) [Ratio]45.58 kg/e3ZokfmwTerence Pacheco MD Work Phone: 1(883)[address] [place], [place] 2667810-08-2025 09:25-0400Body acltns226 kg Terence Pacheco MD Work Phone: 1(744)[address] [place], [place] 2667810-08-2025 09:25-0400Diastolic blood uiiutlwk35 mm[Hg]Terence Pacheco MD Work Phone: 1(809)[address] [place], [place] 2667810-08-2025 09:25-0400Systolic blood evdwaziq404 mm[Hg]Terence Pacheco MD Work Phone: 1(812)[address] [place], [place] 2667809-24-2025 09:42-0400Body .18 cmPkendrick De La Torre LOBSTERMAN-C Work Phone: [facility]09-24-2025 09:42-0400 Diastolic blood bnknfonm37 mm[Hg]Gay De La Torre LOBSTERMAN-C Work Phone: [facility]09-24-2025 09:42-0400 Heart rate65 /minPafrancesco De La Torre LOBSTERMAN-C Work Phone: [facility]09-24-2025 09:42-0400 SaO2% (BldA) [Mass fraction]97 %Gay De La Torre LOBSTERMAN-C Work Phone: [facility]09-24-2025 09:42-0400 Systolic blood mm[Hg]Gay Britt LOBSTERMAN-C Work Phone: 1(334)284-[address] [place], [place] 2796509-10-2025 11:40-0400 Diastolic blood ecizkmso86 mm[Hg]Gay Britt LOBSTERMAN-C Work Phone: 1(984)477-[address] [place], [place] 2796509-10-2025 11:40-0400 Heart rate86 /minPajessea Britt LOBSTERMAN-C Work Phone: 1(815)206-[address] [place], [place] 2796509-10-2025 11:40-0400 Respiratory rate18 /minPajessea Britt LOBSTERMAN-C Work Phone: 1(500)[address]09-10-2025 11:40-0400 SaO2% (BldA) [Mass fraction]94 %Gay Britt LOBSTERMAN-C Work Phone: 1(253)[address]09-10-2025 11:40-0400 Systolic blood rmjayhku297 mm[Hg]Gay Britt LOBSTERMAN-C Work Phone: 1(747)[address]09-10-2025 10:11-0400 Body fgeiyc131.18 cmPamela Britt LOBSTERMAN-C Work Phone: 1(147)040-[address] [place], [place] 2796509-10-2025 10:11-0400 Body blhpre236 kgPamela Britt LOBSTERMAN-C Work Phone: 1(594)[address]09-03-2025 14:20-0400 Diastolic blood mm[Hg]Chair Zenda Work Phone: [facility]09-03-2025 14:20-0400Heart rate82 /min Chair Zenda Work Phone: [facility]09-03-2025 14:20-0400Respiratory rate 18 /minChair Zenda Work Phone: [facility]09-03-2025 14:20-8670XzW9% (BldA) [Mass fraction]98 %Chair Zenda Work Phone: [facility]09-03-2025 14:20-0400Systolic blood vnnycjyy059 mm[Hg]Chair Zenda Work Phone: [facility]09-03-2025 10:42-0400Body temperature 97.81 [degF]Chair Seo Work Phone: [facility]08-27-2025 10:38-0400Body aegqck813.18 Hilton Johnmer LOBSTERMAN-C Work Phone: 8(189)988-[address] [place], [place] 2796508-27-2025 10:38-0400 Diastolic blood fterkvzd95 mm[Hg]Gay Johnmer LOBSTERMAN-C Work Phone: 1(965)891-[address] [place], [place] 2796508-27-2025 10:38-0400 Heart rate92 /minPafrancesco Johnmer LOBSTERMAN-C Work Phone: 1(192)312-[address] [place], [place] 2796508-27-2025 10:38-0400 SaO2% (BldA) [Mass fraction]96 %Gay Johnmer LOBSTERMAN-C Work Phone: 8(602)582-[address] [place], [place] 2796508-27-2025 10:38-0400 Systolic blood mnliwsjc826 mm[Hg]Gay Johnmer LOBSTERMAN-C Work Phone: 1(428)604-[address] [place], [place] 2796508-21-2025 13:51-0400 Body qfdvafsqdju89.29 [degF]Chair Seo Work Phone: [facility]08-21-2025 13:51-0400Diastolic blood rnizqflb09 mm[Hg]Chair Seo Work Phone: [facility]08-21-2025 13:51-0400Heart rate76 /min Chair Gabbi Work Phone: [facility]08-21-2025 13:51-0400Respiratory rate 20 /minChair Gabbi Work Phone: [facility]08-21-2025 13:51-3273JtH6% (BldA) [Mass fraction]98 %Chair Seo Work Phone: [facility]08-21-2025 13:51-0400Systolic blood mm[Hg]Chair Zenda Work Phone: [facility]07-24-2025 14:10-0400Diastolic blood utdubcie57 mm[Hg]Chair Zenda Work Phone: [facility]07-24-2025 14:10-0400Heart rate83 /min Chair Zenda Work Phone: [facility]07-24-2025 14:10-0400Respiratory rate 18 /minChair Zenda Work Phone: [facility]07-24-2025 14:10-5022ZwL8% (BldA) [Mass fraction]96 %Chair Gabbi Work Phone: [facility]07-24-2025 14:10-0400Systolic blood fxetvomg048 mm[Hg]Chair Gabbi Work Phone: [facility]07-22-2025 10:45-0400Body vjpcmi294.18 cmPamela Britt LOBSTERMAN-C Work Phone: 1(639)191-[address] [place], [place] 2796507-22-2025 10:45-0400 Body mass index (BMI) [Ratio]44.8 kg/g9Xujblp Britt LOBSTERMAN-C Work Phone: 1(096)426-[address] [place], [place] 2796507-22-2025 10:45-0400 Body .72 kgPamela Britt LOBSTERMAN-C Work Phone: 1(067)554-[address] [place], [place] 2796507-22-2025 10:45-0400 Diastolic blood kyfzkgto73 mm[Hg]Gay Britt LOBSTERMAN-C Work Phone: 1(147)309-[address] [place], [place] 2796507-22-2025 10:45-0400 Heart rate63 /minPajessea Britt LOBSTERMAN-C Work Phone: 1(070)498-[address] [place], [place] 2796507-22-2025 10:45-0400 Systolic blood yhkijvpb605 mm[Hg]Gay Britt LOBSTERMAN-C Work Phone: 1(475)979-[address] [place], [place] 2796507-10-2025 09:08-0400 Diastolic blood ygddxlgl57 mm[Hg]Gay Britt LOBSTERMAN-C Work Phone: [facility]07-10-2025 09:08-0400 Heart rate64 /minGay Johnmer LOBSTERMAN-C Work Phone: [facility]07-10-2025 09:08-0400 SaO2% (BldA) [Mass fraction]98 %aGy De La Torre LOBSTERMAN-C Work Phone: [facility]07-10-2025 09:08-0400 Systolic blood qgxidazx780 mm[Hg]Gay De La Torre LOBSTERMAN-C Work Phone: [facility]07-09-2025 14:46-0400 Body bomejuvdcox71.81 [degF]Chair Gabbi Work Phone: [facility]07-09-2025 14:46-0400Diastolic blood bdnoglsf08 mm[Hg]Chair Zenda Work Phone: [facility]07-09-2025 14:46-0400Heart rate77 /min Chair Zenda Work Phone: [facility]07-09-2025 14:46-0400Respiratory rate 18 /minChair Zenda Work Phone: [facility]07-09-2025 14:46-5005HoF4% (BldA) [Mass fraction]98 %Chair Gabbi Work Phone: [facility] CenterComment on above:[id number] 14:46-0400Systolic blood qqulffot334 mm[Hg]Chair Zenda Work Phone: [facility]07-09-2025 09:13-0400Body jhauuw820.2 cmVaibhav Carvalho FIELD MARKETING COORDINATOR.CLINICAL RESEARCH SPEC Work Phone: [facility]07-09-2025 09:13-0400Body mass index (BMI) [Ratio]45.12 kg/t2GpoyofVaibhav Carvalho FIELD MARKETING COORDINATOR.CLINICAL RESEARCH SPEC Work Phone: [facility]07-09-2025 09:13-0400Body temperature 97.5 [degF]Vaibhav Deven FIELD MARKETING COORDINATOR.CLINICAL RESEARCH SPEC Work Phone: [facility]07-09-2025 09:13-0400Body vyrjxa177.7 kgMarvelimee Deven FIELD MARKETING COORDINATOR.CLINICAL RESEARCH SPEC Work Phone: [facility]07-09-2025 09:13-0400Diastolic blood ugdrxeqr41 mm[Hg]Vaibhav Deven FIELD MARKETING COORDINATOR.CLINICAL RESEARCH SPEC Work Phone: [facility]07-09-2025 09:13-0400Heart rate88 /min Vaibhav Deven FIELD MARKETING COORDINATOR.CLINICAL RESEARCH SPEC Work Phone: [facility]07-09-2025 09:13-0400Respiratory rate 18 /minMarvelimee Deven FIELD MARKETING COORDINATOR.CLINICAL RESEARCH SPEC Work Phone: [facility]07-09-2025 09:13-5459QaS1% (BldA) [Mass fraction]98 %Vaibhav Deven FIELD MARKETING COORDINATOR.CLINICAL RESEARCH SPEC Work Phone: [facility]07-09-2025 09:13-0400Systolic blood edenysbe967 mm[Hg]Vaibhav Deven FIELD MARKETING COORDINATOR.CLINICAL RESEARCH SPEC Work Phone: [facility]06-26-2025 13:47-0400Body temperature 98.01 [degF]Chair Zenda Work Phone: [facility]06-26-2025 13:47-0400Diastolic blood ljjqsgpu87 mm[Hg]Chair Zenda Work Phone: [facility]06-26-2025 13:47-0400Heart rate89 /min Chair Zenda Work Phone: [facility]06-26-2025 13:47-0400Respiratory rate 20 /minChair Gabbi Work Phone: [facility]06-26-2025 13:47-5068MnE3% (BldA) [Mass fraction]97 %Chair Zenda Work Phone: [facility]06-26-2025 13:47-0400Systolic blood wsjdroou830 mm[Hg]Chair Zenda Work Phone: [facility]06-23-2025 11:17-0400Body rospal516.18 cmPkendrick Britt LOBSTERMAN-C Work Phone: 8(537)160-[address] [place], [place] 2796506-23-2025 11:17-0400 Body mass index (BMI) [Ratio]44.1 kg/b8Ifwhuz Britt LOBSTERMAN-C Work Phone: 1(028)214-[address] [place], [place] 2796506-23-2025 11:17-0400 Body fofcja907.91 kgPajessea Britt LOBSTERMAN-C Work Phone: 1(910)394-[address] [place], [place] 2796506-23-2025 11:17-0400 Diastolic blood pkglcoyo38 mm[Hg]Gay Britt LOBSTERMAN-C Work Phone: 1(594)615-[address] [place], [place] 2796506-23-2025 11:17-0400 Heart rate96 /minGay Britt LOBSTERMAN-C Work Phone: 1(626)522-[address] [place], [place] 2796506-23-2025 11:17-0400 Systolic blood mm[Hg]Gay Britt LOBSTERMAN-C Work Phone: 1(934)189-[address] [place], [place] 2796506-10-2025 14:46-0400 Diastolic blood lypklccy10 mm[Hg]Chair Zenda Work Phone: [facility]06-10-2025 14:46-0400Heart rate68 /min Chair Zenda Work Phone: [facility]06-10-2025 14:46-0400Respiratory rate 20 /minChair Zenda Work Phone: [facility]06-10-2025 14:46-1625ZnK3% (BldA) [Mass fraction]94 %Chair Gabbi Work Phone: [facility] CenterComment on above:[id number] 14:46-0400Systolic blood lonwyxpe898 mm[Hg]Chair Zenda Work Phone: [facility]06-10-2025 09:19-0400Body temperature 97.81 [degF]Chair Zenda Work Phone: [facility]05-14-2025 14:16-0400Body mass index (BMI) [Ratio]44.01 kg/a3Lajvp Zenda Work Phone: [facility]05-14-2025 14:16-0400Body temperature 97.59 [degF]Chair Zenda Work Phone: [facility]05-14-2025 14:16-0400Body bswezs728.5 kgChair Gabbi Work Phone: [facility]05-14-2025 14:16-0400Diastolic blood meudbrrz21 mm[Hg]Chair Zenda Work Phone: [facility]05-14-2025 14:16-0400Heart rate85 /min Chair Zenda Work Phone: [facility]05-14-2025 14:16-0400Respiratory rate 16 /minChair Gabbi Work Phone: [facility]05-14-2025 14:16-8231OxY0% (BldA) [Mass fraction]96 %Chair Gabbi Work Phone: [facility]05-14-2025 14:16-0400Systolic blood mm[Hg]Chair Zenda Work Phone: [facility]05-12-2025 14:15-0400Body temperature 98.29 [degF]Chair Zenda Work Phone: [facility]05-12-2025 14:15-0400Diastolic blood twjixywe84 mm[Hg]Chair Gabbi Work Phone: [facility]05-12-2025 14:15-0400Heart rate76 /min Chair Zenda Work Phone: [facility]05-12-2025 14:15-0400Respiratory rate 16 /minChair Gabbi Work Phone: [facility]05-12-2025 14:15-0895EcX2% (BldA) [Mass fraction]97 %Chair Zenda Work Phone: [facility]05-12-2025 14:15-0400Systolic blood dprodicc814 mm[Hg]Chair Gabbi Work Phone: [facility]04-28-2025 13:20-0400Body temperature 97.59 [degF]Chair Gabbi Work Phone: [facility]04-28-2025 13:20-0400Diastolic blood toujgzqh11 mm[Hg]Chair Zenda Work Phone: [facility]04-28-2025 13:20-0400Heart rpkl750 /minChair Gabbi Work Phone: [facility]04-28-2025 13:20-0400Respiratory rate 18 /minChair Gabbi Work Phone: [facility]04-28-2025 13:20-7178ShO0% (BldA) [Mass fraction]97 %Chair Gabbi Work Phone: [facility]04-28-2025 13:20-0400Systolic blood mm[Hg]Chair Gabbi Work Phone: [facility]04-16-2025 16:17-0400Heart rate90 /min Gay De La Torre LOBSTERMAN-C Work Phone: [facility]04-16-2025 16:17-0400 SaO2% (BldA) [Mass fraction]97 %Gay De La Torre LOBSTERMAN-C Work Phone: [facility]04-16-2025 13:54-0400 Diastolic blood kihcansw04 mm[Hg]Chair Gabbi Work Phone: [facility]04-16-2025 13:54-0400Heart rate90 /min Chair Zenda Work Phone: [place] [address]-16-2025 13:54-0400Respiratory rate 18 /minChair Gabbi Work Phone: [place] [address]-16-2025 13:54-9312LjT2% (BldA) [Mass fraction]97 %Chair Gabbi Work Phone: [place] [address]-16-2025 13:54-0400Systolic blood mm[Hg]Chair Gabbi Work Phone: [place] [address]-16-2025 08:43-0400Body ijvild163.2 cmJaimee Deven FIELD MARKETING COORDINATOR.CLINICAL RESEARCH SPEC Work Phone: [place] [address]-16-2025 08:43-0400Body mass index (BMI) [Ratio]45.5 kg/w4Gduour Deven FIELD MARKETING COORDINATOR.CLINICAL RESEARCH SPEC Work Phone: [place] [address]-16-2025 08:43-0400Body temperature 97.5 [degF]Vaibhav Deven FIELD MARKETING COORDINATOR.CLINICAL RESEARCH SPEC Work Phone: [place] [address]-16-2025 08:43-0400Body fqnwti145.8 kgJaimee Deven FIELD MARKETING COORDINATOR.CLINICAL RESEARCH SPEC Work Phone: [place] [address]-16-2025 08:43-0400Diastolic blood booofadt68 mm[Hg]Vaibhav Deven FIELD MARKETING COORDINATOR.CLINICAL RESEARCH SPEC Work Phone: [place] [address]-16-2025 08:43-0400Heart rate77 /min Vaibhav Deven FIELD MARKETING COORDINATOR.CLINICAL RESEARCH SPEC Work Phone: [place] [address]-16-2025 08:43-0400Respiratory rate 18 /minJaimee Deven FIELD MARKETING COORDINATOR.CLINICAL RESEARCH SPEC Work Phone: [place] [address]-16-2025 08:43-7726HxO6% (BldA) [Mass fraction]97 %Vaibhav Deven FIELD MARKETING COORDINATOR.CLINICAL RESEARCH SPEC Work Phone: [place] [address]-16-2025 08:43-0400Systolic blood caqnzpbe944 mm[Hg]Vaibhav Hernandezjulia DODSONCLINICAL RESEARCH SPEC Work Phone: [facility]04-14-2025 15:04-0400Body plylga478.2 cmGordo Barfield MD Work Phone: [facility] [id number] 15:04-0400Body mass index (BMI) [Ratio]44.32 kg/q5AhublhGordo Barfield MD Work Phone: [place] [id number] 15:04-0400Body tgilnl521.37 kgGordo Barfield MD Work Phone: [place] [id number] 15:04-0400Diastolic blood gwnojavn46 mm[Hg]Gordo Barfield MD Work Phone: [facility] [id number] 15:04-0400Heart awjk876 /min Gordo Barfield MD Work Phone: [place] [id number] 15:04-0400Systolic blood liixtrdv970 mm[Hg]Gordo Barfield MD Work Phone: [place] [address]Fswrpnewig68-74-7175 14:36-0400Diastolic blood defhjypk99 mm[Hg]Chair Gabbi Work Phone: [facility]03-18-2025 14:36-0400Heart rate83 /min Chair Zenda Work Phone: [facility]03-18-2025 14:36-0400Respiratory rate 18 /minChair Zenda Work Phone: [place] [address]-18-2025 14:36-6648EqJ9% (BldA) [Mass fraction]97 %Chair Zenda Work Phone: [place] [address]-18-2025 14:36-0400Systolic blood vlzuwqmx348 mm[Hg]Chair Gabbi Work Phone: [place] [address]-18-2025 10:54-0400Body temperature 98.01 [degF]Chair Seo Work Phone: [facility]03-10-2025 16:05-0400Diastolic blood nnytqait40 mm[Hg]Gay Britt LOBSTERMAN-C Work Phone: [facility]03-10-2025 16:05-0400 Heart mdzi729 /minPafrancesco Johnmer LOBSTERMAN-C Work Phone: [facility]03-10-2025 16:05-0400 SaO2% (BldA) [Mass fraction]96 %Gay Britt LOBSTERMAN-C Work Phone: [facility]03-10-2025 16:05-0400 Systolic blood lbatdall949 mm[Hg]Gayomer Johnmer LOBSTERMAN-C Work Phone: [facility]03-05-2025 15:06-0500 Body .2 cmLois Holm MD Work Phone: 1(309)988-[address] [place], [place] 2421603-05-2025 15:06-0500 Body mass index (BMI) [Ratio]44.92 kg/z6JzfchfLois Holm MD Work Phone: 5(777)888-[address] [place], [place] 2421603-05-2025 15:06-0500 Body oqyajn864.09 kgLois Holm MD Work Phone: 0(579)237-[address] [place], [place] 2421603-05-2025 15:06-0500 Diastolic blood gbxcudme18 mm[Hg]Lois Holm MD Work Phone: 0(872)489-[address] [place], [place] 2421603-05-2025 15:06-0500 Heart rate84 /minLois Holm MD Work Phone: [address] [place], [place] 5710303-05-2025 15:06-0500 Systolic blood exxfrqwq592 mm[Hg]Lois Holm MD Work Phone: [facility]02-26-2025 11:27-0500 Diastolic blood mm[Hg]Gay De La Torre LOBSTERMAN-C Work Phone: [facility]02-26-2025 11:27-0500 Heart rate78 /minGay Britt LOBSTERMAN-C Work Phone: 1(818)526-[address] [place], [place] 2796502-26-2025 11:27-0500 Respiratory rate16 /minPajessea Britt LOBSTERMAN-C Work Phone: 1(691)052-[address] [place], [place] 2796502-26-2025 11:27-0500 SaO2% (BldA) [Mass fraction]96 %Gay De La Torre LOBSTERMAN-C Work Phone: 1(886)436-[address] [place], [place] 2796502-26-2025 11:27-0500 Systolic blood iiqofjsj150 mm[Hg]Gay Britt LOBSTERMAN-C Work Phone: 1(138)310-[address] [place], [place] 2796502-26-2025 09:54-0500 Body xativb115.18 cmPamela Britt LOBSTERMAN-C Work Phone: 1(375)689-[address] [place], [place] 2796502-26-2025 09:54-0500 Body akbsvx642 kgPamela Britt LOBSTERMAN-C Work Phone: 1(678)792-[address] [place], [place] 2796502-19-2025 14:16-0500 Body hyfxnxrtwpv27.91 [degF]Marky Gasca PA-C Work Phone: [facility]02-18-2025 14:30-0500Body temperature 97.39 [degF]Chair Gabbi Work Phone: [facility]02-18-2025 14:30-0500Diastolic blood bmvyicxu71 mm[Hg]Chair Zenda Work Phone: [facility]02-18-2025 14:30-0500Heart rate69 /min Chair Zenda Work Phone: [facility]02-18-2025 14:30-0500Respiratory rate 18 /minChair Gabbi Work Phone: [facility]02-18-2025 14:30-8735BtH8% (BldA) [Mass fraction]98 %Chair Zenda Work Phone: [place] [address]-18-2025 14:30-0500Systolic blood nnozliug995 mm[Hg]Chair Gabbi Work Phone: [facility]02-17-2025 15:25-0500Diastolic blood mm[Hg][facility]02-17-2025 15:25-0500Heart hnxq507 /min[facility]02-17-2025 15:25-3255JeS0% (BldA) [Mass fraction]97 %[facility]02-17-2025 15:25-0500 Systolic blood wstnortw430 mm[Hg][facility]01-21-2025 14:55-0500Diastolic blood zioyftmg40 mm[Hg]Chair Gabbi Work Phone: [facility]01-21-2025 14:55-0500Heart rate70 /min Chair Gabbi Work Phone: [facility]01-21-2025 14:55-0500Respiratory rate 18 /minChair Zenda Work Phone: [facility]01-21-2025 14:55-0981HrZ1% (BldA) [Mass fraction]98 %Chair Gabbi Work Phone: [facility]01-21-2025 14:55-0500Systolic blood vkauumrv15 mm[Hg]Chair Gabbi Work Phone: [facility]01-21-2025 08:55-0500Body mass index (BMI) [Ratio]45.08 kg/v8HwpjaaVaibhav Carvalho FIELD MARKETING COORDINATOR.CLINICAL RESEARCH SPEC Work Phone: [facility]01-21-2025 08:55-0500Body temperature 97.59 [degF]Vaibhav Carvalho FIELD MARKETING COORDINATOR.CLINICAL RESEARCH SPEC Work Phone: [facility]01-21-2025 08:55-0500Body mzzyrw887.6 kgVaibhav Carvalho FIELD MARKETING COORDINATOR.CLINICAL RESEARCH SPEC Work Phone: [facility]01-21-2025 08:55-0500Diastolic blood ohaotnfj32 mm[Hg]Vaibhav Deven FIELD MARKETING COORDINATOR.CLINICAL RESEARCH SPEC Work Phone: [facility]01-21-2025 08:55-0500Heart rate79 /min Vaibhav Deven FIELD MARKETING COORDINATOR.CLINICAL RESEARCH SPEC Work Phone: [facility]01-21-2025 08:55-0500Respiratory rate 16 /minVaibhav Hernandezod FIELD MARKETING COORDINATOR.CLINICAL RESEARCH SPEC Work Phone: [facility]01-21-2025 08:55-9653JuF3% (BldA) [Mass fraction]98 %Vaibhav Deven FIELD MARKETING COORDINATOR.CLINICAL RESEARCH SPEC Work Phone: [facility]01-21-2025 08:55-0500Systolic blood vllwqieb003 mm[Hg]Vaibhav Deven FIELD MARKETING COORDINATOR.CLINICAL RESEARCH SPEC Work Phone: [facility]01-14-2025 11:37-0500Body mass index (BMI) [Ratio]45.08 kg/m2Oly WARREN Work Phone: [facility] SystemsNlumgatiez77-93-1938 11:37-0500Body iqycbr241.54 kgOly WARREN Work Phone: [facility] SystemsMtigjqsetw50-75-0985 11:37-0500Diastolic blood wpmkpwme75 mm[Hg]Oly WARREN Work Phone: [facility] SystemsPoqlsjohfp85-11-2717 11:37-0500Systolic blood zutggnlg530 mm[Hg]Oly WARREN Work Phone: [facility] SystemsVejsppyjfd22-58-4128 15:02-0500Body temperature 97.3 [degF]Chair Gabbi Work Phone: [facility]12-27-2024 15:02-0500Diastolic blood pvbquzad37 mm[Hg]Chair Gabbi Work Phone: [facility]12-27-2024 15:02-0500Heart rate73 /min Chair Gabbi Work Phone: [facility]12-27-2024 15:02-0500Respiratory rate 20 /minChair Gabbi Work Phone: [facility]12-27-2024 15:02-9140KvO0% (BldA) [Mass fraction]98 %Chair Gabbi Work Phone: [facility] CenterComment on above:[id number] 15:02-0500Systolic blood mizmsavc854 mm[Hg]Chair Zenda Work Phone: [facility]12-04-2024 09:31-0500Body temperature 97.59 [degF]Ma Joanna Work Phone: [facility]12-04-2024 09:31-0500Diastolic blood pqplyefs43 mm[Hg]Ma Sand Work Phone: [facility] CenterComment on above:Rhghda59-25-4169 09:31-0500Heart rate66 /minMa Sand Work Phone: [facility]12-04-2024 09:31-0500Respiratory rate 16 /minMa Sand Work Phone: [facility]12-04-2024 09:31-0641XzG9% (BldA) [Mass fraction]99 %Ma oJanna Work Phone: [facility]12-04-2024 09:31-0500Systolic blood cilagyfy644 mm[Hg]Ma Sand Work Phone: [facility] CenterComment on above:Kackkv34-98-6627 10:12-0500Body njlkra066.2 cmGordo Barfield MD Work Phone: [place] [address]Robwxklysu15-91-6662 10:12-0500Body mass index (BMI) [Ratio]44.95 kg/e3GimslrGordo Barfield MD Work Phone: [place] [address]Cfcyattvgg39-50-5642 10:12-0500Body .18 kgHielyse Barfield MD Work Phone: [place] [address]Zkpkbzcbug89-94-4417 10:12-0500Diastolic blood mm[Hg]Gordo Barfield MD Work Phone: [facility] SystemsTfkxtfylgq39-14-3167 10:12-0500Systolic blood hpmjwacz729 mm[Hg]Gordo Barfield MD Work Phone: [facility] SystemsDadilywefp46-38-1079 10:00-0500Body .2 cmHayden Arciniega MD Work Phone: 1(952)[facility]11-14-2024 10:00-0500Body mass index (BMI) [Ratio]43.07 kg/q6QyezfjrHayden Arciniega MD Work Phone: 1(784)[facility]11-14-2024 10:00-0500Body mlgqebmeryj00 [degF]Hayden Arciniega MD Work Phone: 1(772)[facility]11-14-2024 10:00-0500Body jhdimm735.74 kgMojose Arciniega MD Work Phone: 1(314)[facility]11-14-2024 10:00-0500Diastolic blood ylsizkwx42 mm[Hg]Hayden Arciniega MD Work Phone: 1(791)[facility]11-14-2024 10:00-0500Heart rate 86 /minMojose Arciniega MD Work Phone: 1(580)[facility]11-14-2024 10:00-8629BqC2% (BldA) [Mass fraction]97 %Hayden Arciniega MD Work Phone: 1(111)[facility]11-14-2024 10:00-0500Systolic blood utivunwg211 mm[Hg]Hayden Arciniega MD Work Phone: 1(404)[facility]11-10-2024 13:27-0500Body mass index (BMI) [Ratio]45.42 kg/m2Marky Nichols DO Work Phone: [facility]Re[facility] HospitalFmcicgfamq48-91-0151 13:27-0500Body temperature 98.71 [degF]Marky Nichols DO Work Phone: noRe[facility] HospitalJaluhiybqt07-62-6330 13:27-0500Body .54 kgPatennille Nichols DO Work Phone: no[facility] HospitalTupscbilrf07-56-5609 13:27-0500Diastolic blood oxfubbmk42 mm[Hg]Marky Nichols DO Work Phone: noRe[facility] HospitalQiftzhznax46-57-8424 13:27-0500Heart rate78 /min Marky Nichols DO Work Phone: [place] [address]Oryiobiwhj97-23-2415 13:27-6906PaF1% (BldA) [Mass fraction]99 %Marky Nichols DO Work Phone: noRe[facility] HospitalZhbsepdplr01-46-3631 13:27-0500Systolic blood cpfdydyy800 mm[Hg]Marky Nichols DO Work Phone: noRe[facility] HospitalKbgxcltyrr89-52-6002 14:35-0400Body mass index (BMI) [Ratio]44.17 kg/m2Amy Ogden PA Work Phone: [facility] SystemsLxprzbyxga78-60-1111 14:35-0400Body dujiyp817.91 kgOly Sotoey PA Work Phone: [facility] SystemsGfmdgogkal63-92-7982 14:35-0400Diastolic blood abijpfkt77 mm[Hg]Oly Temo PA Work Phone: noRe[facility] HospitalIwcdjlypmv45-53-9148 14:35-0400Systolic blood tqiahhqq919 mm[Hg]Oly Ogden PA Work Phone: [facility] SystemsMmdmcjeljk04-05-9707 10:11-0400Body iwbaco084.2 cmMa Sand Work Phone: [facility]10-31-2024 10:11-0400Body mass index (BMI) [Ratio]43.06 kg/m2Ma Sand Work Phone: [facility]10-31-2024 10:11-0400Body temperature 97.59 [degF]Ma Sand Work Phone: [facility]10-31-2024 10:11-0400Body qabaol858.74 kgMa Sand Work Phone: [facility]10-31-2024 10:11-0400Diastolic blood mm[Hg]Ma Sand Work Phone: [facility]10-31-2024 10:11-0400Heart rate71 /min Ma Sand Work Phone: [facility]10-31-2024 10:11-0400Respiratory rate 16 /minHoda Sand Work Phone: [facility]10-31-2024 10:11-4728RzF0% (BldA) [Mass fraction]94 %Ma Sand Work Phone: [facility]10-31-2024 10:11-0400Systolic blood rglfbyac588 mm[Hg]Ma Sand Work Phone: [facility]10-24-2024 11:24-0400Body mass index (BMI) [Ratio]43.67 kg/r3Vegqy Skip DO Work Phone: [facility] SystemsQycvhwdegf29-83-6143 11:24-0400Body zooivf990.46 kgCorey Skip DO Work Phone: [facility] SystemsGqhkppbroh14-17-9398 11:24-0400Diastolic blood mm[Hg]Luan Skip DO Work Phone: [facility] SystemsJyqcpbeckl96-42-3552 11:24-0400Systolic blood mm[Hg]Luan Skip DO Work Phone: [facility] SystemsPtkiisyerc48-40-3644 09:20-0400Body rnpapm022.18 cmNP-C Gay De La Torre Work Phone: [facility]10-24-2024 09:20-0400 Body mass index (BMI) [Ratio]43 kg/m2NP-C Gay De La Torre Work Phone: [facility]10-24-2024 09:20-0400 Body xxneuw039.73 kgNP-C Gay De La Torre Work Phone: [facility]09-30-2024 11:04-0400 Body coqjickdelr94.2 [degF]Ma Sand Work Phone: [facility]09-30-2024 11:04-0400Diastolic blood orjsoraz26 mm[Hg]Ma Sand Work Phone: [facility] CenterComment on above:-08-1609 11:04-0400Heart rate95 /minMa Sand Work Phone: [facility]09-30-2024 11:04-0400Respiratory rate 16 /minMa Sand Work Phone: [facility]09-30-2024 11:04-1753VbK3% (BldA) [Mass fraction]98 %Ma Sand Work Phone: [facility]09-30-2024 11:04-0400Systolic blood pmxeajkx433 mm[Hg]Ma Sand Work Phone: [facility] CenterComment on above:qryfuj48-63-5060 09:23-0400Diastolic blood yzxxnter72 mm[Hg]LOBSTERMAN-C Gay De La Torre Work Phone: 1(542)161-[address] [place], [place] [address]509-25-2024 09:23-0400 Heart rate70 /minNP-C Gay De La Torre Work Phone: 1(616)577-[address] [place], [place] [address]509-25-2024 09:23-0400 Respiratory rate16 /minNP-C Gay De La Torre Work Phone: 1(517)595-[address] [place], [place] [address]509-25-2024 09:23-0400 SaO2% (BldA) [Mass fraction]96 %LOBSTERMAN-C Gay De La Torre Work Phone: 1(277)109-[address] [place], [place] 2796509-25-2024 09:23-0400 Systolic blood mm[Hg]LOBSTERMAN-C Gay De La Torre Work Phone: 1(569)323-[address] [place], [place] 2796509-25-2024 07:27-0400 Body okhuvw408.18 cmNP-C Gay De La Torre Work Phone: 1(130)056-[address] [place], [place] 279[address]509-25-2024 07:27-0400 Body cpgosq266.46 kgNP-C Gay De La Torre Work Phone: [facility]09-06-2024 11:31-0400 Body jxsgni679.6 kgMet[facility]09-06-2024 11:31-0400 Diastolic blood mm[Hg][facility]09-06-2024 11:31-0400Heart rate69 /minMet[facility] Center09-06-2024 11:31-8758ZcX6% (BldA) [Mass fraction]98 %[facility] 01-28-2024 11:31-0400Systolic blood lzscxeqs562 mm[Hg][facility]09-03-2024 11:30-0400Body dygoqegcftd42.39 [degF]Ma Sand Work Phone: [facility]09-03-2024 11:30-0400Diastolic blood hnifnscm59 mm[Hg]Ma Sand Work Phone: [facility]09-03-2024 11:30-0400Heart rate68 /min Ma Sand Work Phone: [facility]09-03-2024 11:30-0400Respiratory rate 16 /minMa Sand Work Phone: [facility]09-03-2024 11:30-0100AwM2% (BldA) [Mass fraction]99 %Ma Sand Work Phone: [facility]09-03-2024 11:30-0400Systolic blood dkjblmui20 mm[Hg]Ma Sand Work Phone: [facility]08-05-2024 11:16-0400Diastolic blood wtxmiaif15 mm[Hg]Neda Hill PA-C Work Phone: [facility]08-05-2024 11:16-0400Systolic blood tybzucho17 mm[Hg]Neda Hill PA-C Work Phone: [facility]08-05-2024 11:02-0400Body sahicf070.2 cmNeda Hill PA-C Work Phone: [facility]08-05-2024 11:02-0400Body mass index (BMI) [Ratio]43.08 kg/n9Xhgza Liz PA-C Work Phone: [facility]08-05-2024 11:02-0400Body temperature 97.7 [degF]Neda Rubioer PA-C Work Phone: [facility]08-05-2024 11:02-0400Body gysact931.8 kgMinedy Rubioer PA-C Work Phone: [facility]08-05-2024 11:02-0400Heart rate89 /min Neda Rubioer PA-C Work Phone: [facility]08-05-2024 11:02-0400Respiratory rate 16 /minMinedy Rubioer PA-C Work Phone: [facility]08-05-2024 11:02-7255IhD0% (BldA) [Mass fraction]98 %Neda Rubioer PA-C Work Phone: [facility]07-25-2024 14:13-0400Body shdoql808.18 cmMet[facility]07-25-2024 14:13-0400Body mass index (BMI) [Ratio]42.7 kg/a4JzrzhkibyMetrohealth Parma Medical Center07-25-2024 14:13-0400Body memcepyevik99.6 [degF][facility]07-25-2024 14:13-0400Body gvvuaw558.83 kgMet[facility] Center07-25-2024 14:13-0400Diastolic blood tngqammd06 mm[Hg][facility]07-25-2024 14:13-0400 Heart rate75 /minMetrohealth [facility] Center07-25-2024 14:13-0400Systolic blood dwynsybk301 mm[Hg][facility]07-08-2024 13:43-0400 Body bqhombisgag95.59 [degF]Ma Sand Work Phone: [facility]07-08-2024 13:43-0400Diastolic blood ogwjtpec90 mm[Hg]Ma Sand Work Phone: [facility]07-08-2024 13:43-0400Heart rate73 /min Ma Sand Work Phone: [facility]07-08-2024 13:43-0400Respiratory rate 16 /minMa Sand Work Phone: [facility]07-08-2024 13:43-5044UlO4% (BldA) [Mass fraction]96 %Ma Sand Work Phone: [facility]07-08-2024 13:43-0400Systolic blood ulhhpsoy10 mm[Hg]Ma Sand Work Phone: [facility]06-13-2024 13:55-0400Body vnsyoj112.18 cmMet[facility] Center06-13-2024 13:55-0400Body .3 [degF][facility]06-13-2024 13:55-0400Diastolic blood xnoianaf88 mm[Hg][facility]06-13-2024 13:55-0400Heart rate62 /minMetrohealth [facility]ma Medical Center06-13-2024 13:55-0400Systolic blood ztkwmymz727 mm[Hg][facility]06-05-2024 14:44-0400Body emdsqpglwvc20 [degF]Ma Sand Work Phone: [facility]06-05-2024 14:44-0400Diastolic blood wiejldfu12 mm[Hg]Ma Sand Work Phone: [facility]06-05-2024 14:44-0400Heart rate97 /min Ma Sand Work Phone: [facility]06-05-2024 14:44-0400Respiratory rate 18 /minMa Sand Work Phone: [facility]06-05-2024 14:44-8766HdS1% (BldA) [Mass fraction]97 %Ma Sand Work Phone: [facility]06-05-2024 14:44-0400Systolic blood asomnusc140 mm[Hg]Ma Sand Work Phone: [facility]05-29-2024 13:10-0400Body xxrceq535.18 cmMetrohealth [facility] Center05-29-2024 13:10-0400Body mass index (BMI) [Ratio]43.2 kg/c2ShnnvrytvMetrohealth Parma Medical Center05-29-2024 13:10-0400Body naejmukjtfz76.3 [degF][facility]05-29-2024 13:10-0400Body zlzlif767.19 kgMet[facility]health [facility] Center05-29-2024 13:10-0400Diastolic blood gytcgfsc22 mm[Hg][facility]05-29-2024 13:10-0400 Heart rate74 /minMetrohealth [facility]ma Medical Center05-29-2024 13:10-0400Systolic blood musaitbd622 mm[Hg][facility]05-09-2024 10:48-0400 Body belnphiabhx98 [degF]Ma Sand Work Phone: [facility]05-09-2024 10:48-0400Diastolic blood oiqwwsbd13 mm[Hg]Ma Sand Work Phone: [facility]05-09-2024 10:48-0400Heart rate71 /min Ma Sand Work Phone: [facility]05-09-2024 10:48-0400Respiratory rate 18 /minMa Sand Work Phone: [facility]05-09-2024 10:48-1264BdF7% (BldA) [Mass fraction]97 %Ma Sand Work Phone: [facility]05-09-2024 10:48-0400Systolic blood mm[Hg]Ma Sand Work Phone: [facility]05-01-2024 14:41-0400Body syzlwn277.93 kgMetrohealth [facility] Center04-09-2024 10:34-0400Body jdxldasffdv20.3 [degF]Ma Sand Work Phone: [place] [address]-09-2024 10:34-0400Diastolic blood sihnshso11 mm[Hg]Ma Sand Work Phone: [place] [address]-09-2024 10:34-0400Heart rate68 /min Ma Sand Work Phone: [facility]04-09-2024 10:34-0400Respiratory rate 18 /minMa Sand Work Phone: [place] [address]-09-2024 10:34-2436YfF7% (BldA) [Mass fraction]99 %Ma Sand Work Phone: [place] [address]-09-2024 10:34-0400Systolic blood dmtapoar007 mm[Hg]Ma Sand Work Phone: [facility]03-14-2024 11:15-0400Body temperature 97.39 [degF]Ma Sand Work Phone: [facility]03-14-2024 11:15-0400Diastolic blood wdpbqajs39 mm[Hg]Ma Sand Work Phone: [place] [address]-14-2024 11:15-0400Heart rate68 /min Ma Sand Work Phone: [facility]03-14-2024 11:15-0400Respiratory rate 18 /minMa Sand Work Phone: [facility]03-14-2024 11:15-2424WjR0% (BldA) [Mass fraction]98 %Ma Sand Work Phone: [facility]03-14-2024 11:15-0400Systolic blood mikshtbq83 mm[Hg]Ma Sand Work Phone: [facility]02-20-2024 11:49-0500Body temperature 97.5 [degF]Ma Sand Work Phone: [facility]02-20-2024 11:49-0500Diastolic blood msjeuglp92 mm[Hg]Ma Sand Work Phone: [facility]02-20-2024 11:49-0500Heart rate83 /min Ma Sand Work Phone: [facility]02-20-2024 11:49-0500Respiratory rate 18 /minMa Sand Work Phone: [facility]02-20-2024 11:49-3741ArK2% (BldA) [Mass fraction]96 %Ma Sand Work Phone: [facility]02-20-2024 11:49-0500Systolic blood qltobcjb940 mm[Hg]Ma Sand Work Phone: [facility]02-20-2024 10:01-0500Diastolic blood szwzyvmi93 mm[Hg]Lois Holm MD Work Phone: [facility]02-20-2024 10:01-0500 Systolic blood drbxspze918 mm[Hg]Lois Holm MD Work Phone: [facility]02-20-2024 09:41-0500 Body nfojjr400.2 cmLois Holm MD Work Phone: [facility]02-20-2024 09:41-0500 Body mass index (BMI) [Ratio]43.85 kg/m1XmcskeLois Holm MD Work Phone: [facility]02-20-2024 09:41-0500 Body nahjab240.01 kgLois Holm MD Work Phone: [facility]02-20-2024 09:41-0500 Heart rate71 /minLois Holm MD Work Phone: [facility]02-13-2024 14:48-0500 Body mass index (BMI) [Ratio]41.81 kg/r7ExxposfKade Early MD Work Phone: [facility] SystemsTufeqfplba86-40-4876 14:48-0500Body .3 kgKade Early MD Work Phone: [facility] SystemsCwsoyouaqq64-69-6680 08:45-0500Body .2 Melissa Jasmine FIELD MARKETING COORDINATOR-CLINICAL RESEARCH SPEC Work Phone: [phone]01-17-2024 08:45-0500 Body mass index (BMI) [Ratio]44.48 kg/k5PqxftMichelle Jasmine FIELD MARKETING COORDINATOR-CLINICAL RESEARCH SPEC Work Phone: [phone])[address]01-17-2024 08:45-0500 Body htysdt871.82 kgCarselene Jasmine FIELD MARKETING COORDINATOR-CLINICAL RESEARCH SPEC Work Phone: 1(479)600-[address] [place], [place] 0204701-17-2024 08:45-0500 Diastolic blood xlofsyda71 mm[Hg]Michelle Sharpeel FIELD MARKETING COORDINATOR-CLINICAL RESEARCH SPEC Work Phone: 1([phone])[address]01-17-2024 08:45-0500 Heart rate80 /minFrankselene Jasmine FIELD MARKETING COORDINATOR-CLINICAL RESEARCH SPEC Work Phone: [phone] [place], [place] [address]01-17-2024 08:45-0500 Systolic blood ewfrnoii310 mm[Hg]Michelle Jasmine FIELD MARKETING COORDINATOR-CLINICAL RESEARCH SPEC Work Phone: [phone] [place], [place] [address]4701-03-2024 17:17-0500 Body awyjzs736.83 kgChristie Phan MD Work Phone: [id number] 14:42-0500Body .19 kgChristie Phan MD Work Phone: [facility] CenterGagsfn83-33-2016 11:16-0400Body temperature 97.7 [degF]Ma Sand Work Phone: [facility]10-27-2023 11:16-0400Diastolic blood milsnaxy35 mm[Hg]Ma Sand Work Phone: [facility]10-27-2023 11:16-0400Heart rate75 /min Ma Sand Work Phone: [facility]10-27-2023 11:16-0400Respiratory rate 16 /minMa Sand Work Phone: [facility]10-27-2023 11:16-1765TsB2% (BldA) [Mass fraction]96 %Hoda Sand Work Phone: [facility]10-27-2023 11:16-0400Systolic blood notjiauj423 mm[Hg]Hoda Sand Work Phone: [facility]09-29-2023 10:56-0400Body .2 cmVana Najera MD Work Phone: [facility]09-29-2023 10:56-0400Body temperature 97.39 [degF]Vera Najera MD Work Phone: [facility]09-29-2023 10:56-0400Body .75 kgVera Najera MD Work Phone: [facility]09-29-2023 10:56-0400Diastolic blood msucjgjq35 mm[Hg]Vera Najera MD Work Phone: [facility]09-29-2023 10:56-0400Heart hdcg270 /minVera Najera MD Work Phone: [facility]09-29-2023 10:56-0400Respiratory rate 16 /minVera Najera MD Work Phone: [facility]09-29-2023 10:56-4532KkB6% (BldA) [Mass fraction]96 %Vera Najera MD Work Phone: [facility]09-29-2023 10:56-0400Systolic blood dgymgvpd328 mm[Hg]Vera Najera MD Work Phone: [facility]09-01-2023 12:09-0400Diastolic blood ctlgeyfl59 mm[Hg]Hoda Sand Work Phone: [facility] [facility]09-[facility] 12:09-0400Systolic blood lxkyaeme986 mm[Hg]Hoda Sand Work Phone: [facility]09-01-2023 12:08-0400Body temperature 97.59 [degF]Ma Sand Work Phone: [facility]09-01-2023 12:08-0400Heart brac441 /minMa Sand Work Phone: [facility]09-01-2023 12:08-0400Respiratory rate 16 /minMa Sand Work Phone: [facility]09-01-2023 12:08-9161XhQ3% (BldA) [Mass fraction]97 %Ma Sand Work Phone: [facility]06-29-2023 11:00-0400Body temperature 97.2 [degF]Ma Sand Work Phone: [facility]06-29-2023 11:00-0400Diastolic blood iqmnqsbx76 mm[Hg]Ma Sand Work Phone: [facility]06-29-2023 11:00-0400Heart rate98 /min Ma Sand Work Phone: [facility]06-29-2023 11:00-0400Respiratory rate 16 /minMa Sand Work Phone: [facility]06-29-2023 11:00-5510KmT0% (BldA) [Mass fraction]98 %Ma Sand Work Phone: [facility]06-29-2023 11:00-0400Systolic blood tvgroknb683 mm[Hg]Ma Sand Work Phone: [facility]06-01-2023 11:51-0400Body ehkkem862.2 cmMa Sand Work Phone: [facility]06-01-2023 11:51-0400Body bwarxn230.66 kgMa Sand Work Phone: [facility]06-01-2023 11:51-0400Respiratory rate 16 /minMa Sand Work Phone: [facility]06-01-2023 10:50-0400Body vowxqh030.2 Semaj Najera MD Work Phone: [facility]06-01-2023 10:50-0400Body temperature 97 [degF]Vera Najera MD Work Phone: [facility]06-01-2023 10:50-0400Body uafjyh380.75 kgVera Najera MD Work Phone: [facility]06-01-2023 10:50-0400Diastolic blood xkurxpfh69 mm[Hg]Vera Najera MD Work Phone: [facility]06-01-2023 10:50-0400Heart rate78 /min Vera Najera MD Work Phone: [facility]06-01-2023 10:50-0400Respiratory rate 16 /minVera Najera MD Work Phone: [facility]06-01-2023 10:50-4120YhC4% (BldA) [Mass fraction]98 %Vera Najera MD Work Phone: [facility]06-01-2023 10:50-0400Systolic blood bfmupzvv860 mm[Hg]Vera Najera MD Work Phone: [facility]05-04-2023 10:22-0400Body iyuyuq792.2 cmMa Sand Work Phone: [facility]05-04-2023 10:22-0400Body temperature 97 [degF]Ma Sand Work Phone: [facility]05-04-2023 10:22-0400Body .2 kgMa Sand Work Phone: [facility]05-04-2023 10:22-0400Diastolic blood ghergoat39 mm[Hg]Ma Sand Work Phone: [facility]05-04-2023 10:22-0400Heart rate77 /min Ma Sand Work Phone: [facility]05-04-2023 10:22-0400Respiratory rate 16 /minMa Sand Work Phone: [facility]05-04-2023 10:22-6058KnM4% (BldA) [Mass fraction]97 %Hoda Marshall Work Phone: [facility]05-04-2023 10:22-0400Systolic blood zihwnywi740 mm[Hg]Hoda Marshall Work Phone: [facility]04-17-2023 14:03-0400Body wxdaoi828.2 kgChristie Phan MD Work Phone: [facility]St[facility] CenterTnfpyv43-99-3808 09:45-0400Body .2 cmRebekah Rojas APRN.CLINICAL RESEARCH SPEC Work Phone: [facility]04-06-2023 09:45-0400Body temperature 97.7 [degF]Rebekah Rojas APRN.CLINICAL RESEARCH SPEC Work Phone: [facility]04-06-2023 09:45-0400Body aikcxt179.66 kgRebekah Rojas APRN.CLINICAL RESEARCH SPEC Work Phone: [facility]04-06-2023 09:45-0400Diastolic blood yuhjarto29 mm[Hg]Rebekah Rojas APRN.CLINICAL RESEARCH SPEC Work Phone: [facility]04-06-2023 09:45-0400Heart rate63 /min Rebekah Rojas APRN.CLINICAL RESEARCH SPEC Work Phone: [facility]04-06-2023 09:45-0400Respiratory rate 16 /minRebekah Rojas APRN.CLINICAL RESEARCH SPEC Work Phone: [facility]04-06-2023 09:45-3156ReI9% (BldA) [Mass fraction]96 %Rebekah Rojas APRN.CLINICAL RESEARCH SPEC Work Phone: [facility]04-06-2023 09:45-0400Systolic blood pequktms053 mm[Hg]Rebekah Rojas APRN.CLINICAL RESEARCH SPEC Work Phone: [facility]12-28-2022 13:28-0500Body .2 Semaj Najera MD Work Phone: [facility]12-28-2022 13:28-0500Body temperature 97.7 [degF]Vera Najera MD Work Phone: [facility]12-28-2022 13:28-0500Diastolic blood zddwrmiw18 mm[Hg]Vera Najera MD Work Phone: [facility]12-28-2022 13:28-0500Heart rate93 /min Vera Najera MD Work Phone: [facility]12-28-2022 13:28-0500Respiratory rate 16 /minVera Najera MD Work Phone: [facility]12-28-2022 13:28-7776LiA3% (BldA) [Mass fraction]97 %Vera Najera MD Work Phone: [facility]12-28-2022 13:28-0500Systolic blood gwracsas432 mm[Hg]Vera Najera MD Work Phone: [facility]10-26-2022 10:49-0400Body ewcthj719.2 cmVana Najera MD Work Phone: [facility]10-26-2022 10:49-0400Body temperature 97.81 [degF]Vera Najera MD Work Phone: [facility]10-26-2022 10:49-0400Body fhbagi286.4 kgVera Najera MD Work Phone: [facility]10-26-2022 10:49-0400Diastolic blood mm[Hg]Vera Najera MD Work Phone: [facility]10-26-2022 10:49-0400Heart rate86 /min Vera Najera MD Work Phone: [facility]10-26-2022 10:49-0400Respiratory rate 16 /minVera Najera MD Work Phone: [facility]10-26-2022 10:49-9165YxA5% (BldA) [Mass fraction]98 %Vera Najera MD Work Phone: [facility]10-26-2022 10:49-0400Systolic blood gqbagjui387 mm[Hg]Vera Najera MD Work Phone: [facility]10-17-2022 11:41-0400Body silrwg600.2 cmChristie Phan MD Work Phone: [phone]. Mary's Medical CenterTrfgmq86-87-6532 11:41-0400Body mgsiyc467.49 kgChristie Phan MD Work Phone: [phone]. Mary's Medical CenterNajchf60-89-3028 11:41-0400Diastolic blood yjyfsmpl770 mm[Hg]Christie Phan MD Work Phone: [phone]. Mary's Medical CenterQjmcjv99-31-1728 11:41-0400Systolic blood osozzulm606 mm[Hg]Christie Phan MD Work Phone: cSt. [facility] CenterXzkbvf41-60-3858 10:39-0400Body csogir033.2 Semaj Najera MD Work Phone: [facility]10-12-2022 10:39-0400Body temperature 97.5 [degF]Vera Najera MD Work Phone: [facility]10-12-2022 10:39-0400Body vmuifh427.76 kgVera Najera MD Work Phone: [facility]10-12-2022 10:39-0400Diastolic blood igikhbjm99 mm[Hg]Vera Najera MD Work Phone: [facility]10-12-2022 10:39-0400Heart rate79 /min Vera Najera MD Work Phone: [facility]10-12-2022 10:39-0400Respiratory rate 16 /minVera Najera MD Work Phone: [facility]10-12-2022 10:39-9965QlO4% (BldA) [Mass fraction]99 %Vera Najera MD Work Phone: [facility]10-12-2022 10:39-0400Systolic blood tvbsjuad689 mm[Hg]Vera Najera MD Work Phone: [facility]07-06-2022 16:00-0400Body upytkp445.91 cmMichael Blank Other [employer] Other 07-06-2022 16:00-0400Body mass index (BMI) [Ratio] 37.68 kg/u6Ttrsvhc Blank Other [employer] Other 07-06-2022 16:00-0400Body ucuczwcqzil45.4 [degF] Mirela Baer Other [employer] Other 07-06-2022 16:00-0400Body arqvtc822.5 kgMichael Blank Other [employer] Other 07-06-2022 16:00-0400Diastolic blood mm[Hg] Mirela Baer Other [employer] Other 07-06-2022 16:00-0400Systolic blood pvolvevs334 mm[Hg] Mirela Baer Other [employer] Other 06-03-2022 08:18-0400Body mcvgiw603.86 kgLynne Ni MD Work Phone: [facility]06-03-2022 08:18-0400Diastolic blood teimdikl42 mm[Hg]Lynne Ni MD Work Phone: [facility]06-03-2022 08:18-0400Heart rate72 /min Lynne Ni MD Work Phone: [facility]06-03-2022 08:18-0400Systolic blood pimyuacz142 mm[Hg]Lynne Ni MD Work Phone: [facility]05-25-2022 15:45-0400Body zggsin835.91 cmMichael Blank Other [employer] Other 05-25-2022 15:45-0400Body mass index (BMI) [Ratio] 38.31 kg/l2Rskmzrj Blank Other [employer] Other 05-25-2022 15:45-0400Body nupagvclxgr09.1 [degF] Mirela Baer Other [employer] Other 05-25-2022 15:45-0400Body .32 kgMichael Blank Other [employer] Other 05-25-2022 15:45-0400Diastolic blood geavunkq69 mm[Hg] Mirela Baer Other [employer] Other 05-25-2022 15:45-0400Systolic blood nvyrthbb067 mm[Hg] Mirela Baer Other [employer] Other 04-21-2022 15:15-0400Body vaoykv209.91 cmMichael Blank Other [employer] Other 04-21-2022 15:15-0400Body mass index (BMI) [Ratio] 37.99 kg/f9Uhyxgin Blank Other [employer] Other 04-21-2022 15:15-0400Body hyfmfjipuak34.9 [degF] Mireal Baer Other [employer] Other 04-21-2022 15:15-0400Body pyhtxo376.41 kgMichael Buffy Other [employer] Other 04-21-2022 15:15-0400Diastolic blood lmwmsmgu87 mm[Hg] Mirela Baer Other [employer] Other 04-21-2022 15:15-0400Systolic blood axyqhmgd095 mm[Hg] Mirela Baer Other [employer] Other 05-17-2021 12:45-0400Diastolic blood mm[Hg] [facility] Work Phone: 1(657) 584-859505-17-2021 12:45-0400Heart rate68 /minStv [facility] Work Phone: 1(691) 122-751705-17-2021 12:45-0434GuL2% (BldA) [Mass fraction]99 % [facility] Work Phone: 1(786) 214-786605-17-2021 12:45-0400Systolic blood uhnfyzaz816 mm[Hg] [facility] Work Phone: 1(641) 636-732205-17-2021 10:45-0400Respiratory rate22 /minStv [facility] Work Phone: 1(695) 692-573105-17-2021 09:01-0400Body cpyxhf072.2 cmStv [facility] Work Phone: 1(306) 526-158605-17-2021 09:01-0400Body mass index (BMI) [Ratio] 36.65 kg/m2[facility] Work Phone: 1(245) 700-424305-17-2021 09:01-0400Body wihdrpuujjb84.81 [degF]Stv A [facility] Work Phone: 1(348) 879-576505-17-2021 09:01-0400Body lvtcny314.14 kgStv [facility] Work Phone: Encounters Encounter DateEncounter TypeCare ProviderFacilityStart: 03-21-2025 End: 04-60-5551ckqpmouyleSXIYDKY M HOYFacility:[facility] HospitalStart: 03-21-2025 End: 51-62-9764hgmbhnizqgCGOQI ABHYANKARFacility:[facility]art: 03-14-2025 End: 64-51-0851Anojme outpatient new 60 minutesTab May MD Work Phone: [facility] Infectious DiseaseComment on above:Nipple discharge in female (Primary Dx); Type 2 diabetes mellitus with other specified complication, 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 whether 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 use; Obesity with serious comorbidity in pediatric patient, unspecified obesity class, unspecified obesity type; IgG deficiency; Recurrent infections; Pilonidal abscess; Tobacco use disorderStart: 40-11-0154rmkqfmqnnuFLZUUG S [facility]ITALDAVIANHem[facility] HospitalStart: 03-13-2025 End: 78-15-5619azbqmwdzpoDstvsi Sue Cramer LOBSTERMAN-C Work Phone: [phone]-[facility] Pain MgmtStart: 03-13-2025 End: 93-74-4066Wflaxyi encounter procedureShertobi Kang MD-Count Includes [facility] Pain Mgmt Work Phone: Start: 03-09-2025 End: 1980jjrdghkognOfkvqu Sue Cramer LOBSTERMAN-C Work Phone: -LAB Path Spec Carl HospStart: 03-09-2025 End: 10-28-5143Ottsmxxn ReferredGay De La Torre CLINICAL RESEARCH SPEC-LAB Path Spec Cotton HospStart: 03-03-2025 End: 10-24-0177djngdakmmvWxjzft Sue Cramer LOBSTERMAN-C Work Phone: [facility] Work Phone: Start: 03-03-2025 End: 41-58-1132Jxuoswbp ReferredJose Hays DO-[facility] Start: 03-02-2025 End: 91-04-2090Qsvwzkkma to same day surgery Pau Blum [facility]: 03-02-2025 End: 48-34-8092glgxcstvvpUxawmo Sue Cramer LOBSTERMAN-C Work Phone: [facility] Work Phone: Start: 03-02-2025 End: 20-22-0061Ozwtmqsa Result EncounterTerence Blum MD Work Phone: noms External Department UnsolicitedStart: 03-02-2025 End: 26-61-8288Qltgkcby Result EncounterTerence Pacheco MD Work Phone: noms External Department UnsolicitedStart: 02-28-2025 End: 24-30-9390swjtqcryylNbbflh Sue Cramer LOBSTERMAN-C Work Phone: [facility] Work Phone: Start: 02-28-2025 End: 29-96-1781Wwbeboj encounter procedureBandar Batista [facility] Work Phone: Start: 02-28-2025 End: 10-27-2305Cjqdix outpatient new 45 minutesTerence Blum MD Work Phone: [facility]oms Surgical AssociatesComment on above:Pilonidal abscess (Primary Dx); Pilonidal cystStart: 02-28-2025 End: 32-44-1710ncgoblphqcKBWAFC VARGAS VNot AvailableStart: 02-26-2025 End: 17-11-5514vtawfitgekLxxxtj Sue Cramer LOBSTERMAN-C Work Phone: [facility] Work Phone: Start: 02-26-2025 End: 71-07-1639Qydszetq ReferredMathew Ji MD-[facility] Start: 02-21-2025 End: 00-76-5310pmzzlsvcyiQBTRFUL M HOYFacility:[facility]art: 02-14-2025 End: 36-58-3296Diamqt outpatient visit 15 minutesEmjennifer English MD Work Phone: [facility] [place] DermatologyComment on above:Pilonidal cyst (Primary Dx); Hidradenitis suppurativaStart: 02-14-2025 End: 68-10-7947ivnbsgagqjEKVWL A PETITTINot AvailableStart: 02-14-2025 End: 78-78-6031Itkuqq flowsheetEmjennifer English MD Work Phone: [facility] [place] DermatologyStart: 02-14-2025 End: 52-53-0141Nabysl flowsheetBernabe English MD Work Phone: [facility] [place] DermatologyStart: 02-14-2025 End: 76-85-1102mxjfiuwqfcCvrrmq Sue Cramer LOBSTERMAN-C Work Phone: [facility] Work Phone: Start: 02-14-2025 End: 99-27-9480Wkewuue encounter procedureMargie Arnett NP-Count Includes [facility] Pain [facility] Work Phone: Start: 02-08-2025 End: 21-75-8571reecdcebmbOOWTYWSI TSAIFacility:[facility]art: 01-31-2025 End: 16-07-4924Fvqfrgurb to same day surgery centerSbobbi Kang MD-[facility] Work Phone: Start: 01-31-2025 End: 39-36-4710snplhjnaqrCtzvqc Sue Cramer LOBSTERMAN-C Work Phone: [phone] [place] [address] Work Phone: Start: 22-67-0728Gcm-patient / Non-visitSbobbi Kang MD-Count Includes [facility] Pain [facility] Work Phone: Start: 01-26-2025 End: 82-17-1494wflsaxbgcoREB TITIKULWINDERNot AvailableStart: 01-24-2025 End: 03-01-7066qczlkcmnffLvwvd 2 [place] Work Phone: Hematology/OncologyComment on above:Frequent infections (Primary Dx); Hypogammaglobulinemia (HCC); Bilateral leg weakness; Discoid lupus erythematosus; Elevated sed rate; Megaloblastic anemia due to vitamin B12 deficiencyStart: 01-18-2025 End: 48-69-6386Revxmjjxn encounterLynne Ni MD Work Phone: RheumatologyComment on above:ResultsStart: 01-17-2025 End: 44-99-3826mtecavzxuuJrdvkc Sue Cramer LOBSTERMAN- Work Phone: [facility] Work Phone: Start: 01-17-2025 End: 26-22-1657Kozpaof encounter procedureMargie Arnett [facility] Work Phone: Start: 01-11-2025 End: 68-45-3785kyewcuhbeoThbeb [address] [place] Work Phone: Hematology/OncologyComment on above:Other systemic lupus erythematosus with other organ involvement (HCC) (Primary Dx); Elevated LFTs; Anemia of chronic disease; Elevated sed rate; Elevated C-reactive protein (CRP); Vitamin D deficiency; Vitamin B12 deficiency; Screening-pulmonary TBStart: 12-27-2024 End: 00-69-5748xwbsnyfxhkPIREU ABHYANKARFacility:[facility]art: 12-14-2024 End: 69-52-7142Pzsrg [facility] Work Phone: NeurologyComment on above:CMNStart: 12-14-2024 End: 58-00-1371rkpdetyfafMhemy [address] [place] Work Phone: Hematology/OncologyComment on above:Other systemic lupus erythematosus with other organ involvement (HCC) (Primary Dx)Start: 12-12-2024 End: 47-12-4401Islcnnx encounter procedureBandar Batista APRN-Count Includes [facility] Gastro Work Phone: Start: 11-30-2024 End: 04-02-2266Hbttwx-up encounterVaibhav Carvalho APRN.CNP Work Phone: Hematology/OncologyComment on above:ResultsStart: 11-30-2024 End: 53-74-7934cnfggoginaYlsulp Sue Cramer NP-C Work Phone: [facility] Work Phone: Start: 11-30-2024 End: 06-44-3855Tbyxzjf encounter procedureMargie Arnett NP-Count Includes [facility] Pain Mgmt Work Phone: Start: 11-29-2024 End: 34-08-1472Pkywig outpatient visit 25 minutesVaibhav Carvalho APRNANGELA Work Phone: Hematology/OncologyComment on above: Hypogammaglobulinemia (HCC) (Primary Dx); Vitamin B12 deficiency; Other iron deficiency anemia; Malaise and fatigue; Shortness of breath; Other specified disorders of breast; Pre-diabetes; Gastro-esophageal reflux disease without esophagitisStart: 11-29-2024 End: 92-09-6363esmqnwurjbQflvk 3 [place] Work Phone: Hematology/OncologyComment on above:Elevated sed rate (Primary Dx); Megaloblastic anemia due to vitamin B12 deficiency; Frequent infections; Hypogammaglobulinemia (HCC); Bilateral leg weakness; Discoid lupus erythematosusStart: 11-23-2024 End: 06-92-1171Dmrsnp outpatient visit 25 minutesMelissa WARREN Work Phone: [facility] DERMComment on above:Hidradenitis suppurativa (Primary Dx); Pain; Acne vulgarisStart: 11-23-2024 End: 96-68-6945yofxbnxvodLOYYJ NORTHEIMNot AvailableStart: 17-57-6112akfioqgmwv Janes Bazancility:[facility] Centertart: 11-22-2024 Registered Sofia BABB CredibleStart: 11-21-2024 End: 49-41-3482pnqazmavmtCkwkca Sue Cramer NP-C Work Phone: [facility] Work Phone: Start: 11-21-2024 End: 47-85-8769Kvchtza encounter procedureSbobbi Kang MD-[facility] Work Phone: Start: 10-59-9713Rey-patient / Non-visitSbobbi Kang MD-[facility] Work Phone: Start: 11-20-2024 End: 16-11-7844Umtkjpsnq encounterViabhav Carvalho APRN.CNP Work Phone: Hematology/OncologyComment on above:Lab OrdersStart: 11-16-2024 End: 34-64-5078iumcjrmuczXzgsb [address] [place] Work Phone: Hematology/OncologyComment on above:Other systemic lupus erythematosus with other organ involvement (HCC) (Primary Dx)Start: 11-15-2024 End: 94-41-8516Votdjnjma encounterSandhya Whalen [facility] Work Phone: HOSPITAL PHARMACY HB-3Start: 11-13-2024 End: 55-69-5798Bbaddwa encounter procedureSbobbi Kang MD-[facility] Work Phone: Start: 10-31-2024 End: 80-33-0500lijckoqmmvHbivs 2 [place] Work Phone: Hematology/OncologyComment on above:Elevated sed rate (Primary Dx); Megaloblastic anemia due to vitamin B12 deficiency; Frequent infections; Hypogammaglobulinemia (HCC); Bilateral leg weakness; Discoid lupus erythematosusStart: 10-19-2024 End: 37-15-1295iaszpgioqzPmuvu [address] [place] Work Phone: Hematology/OncologyComment on above:Other systemic lupus erythematosus with other organ involvement (HCC) (Primary Dx)Start: 10-17-2024 End: 74-96-2452tlnisberdkGZJJCFK Lynne Sharroncility:[facility]art: 10-07-2024 End: 29-19-9364Vftqapv encounter procedureLynne Ni MD Work Phone: 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 CentermatologyComment on above:ResultsStart: 2024 End: 09-72-2754pfhddojtaqZerfu 14 [employer] Work Phone: Hematology/OncologyComment on above:Other systemic lupus erythematosus with other organ involvement (HCC) (Primary Dx)Start: 10-02-2024 End: 36-94-0663qbapqmzggbRrtqq 2 [employer] Work Phone: Hematology/OncologyComment on above:Frequent infections (Primary Dx); Hypogammaglobulinemia (HCC); Bilateral leg weakness; Discoid lupus erythematosus; Elevated sed rate; Megaloblastic anemia due to vitamin B12 deficiency; Elevated LFTs; Anemia of chronic disease; Elevated C-reactive protein (CRP); Vitamin D deficiencyStart: 09-20-2024 End: 32-01-8995Tbacbdetl PharmacyCalhugo Quint[facility] Specialty PharmacyComment on above:SPP Inflammatory Conditions - Medication Refill (Benlysta)Start: 09-19-2024 End: 92-95-1601mdbxmrqtncGPBVC YADAVFacility:[facility] HospitalStart: 09-19-2024 End: 64-66-0103Bzcoxqw encounter Ligia Arroyo [facility] Work Phone: [facility] MAIN WALKERComment on above:Fibromyalgia (Primary Dx); Family history of disease of aorta; Family history of cancerGeneralized articular hypermobility (Primary Dx); Chronic pain syndrome; Discoid lupus erythematosus; Family history of pneumothorax in son; Family history of cancer; Family history of mild aortic dilation in daughterStart: 09-19-2024 End: 16-69-4112cdnhbltzfkVBIRUTBS TSAIFacility:[facility]art: 09-18-2024 End: 92-68-1540Ysmwuhelk encounterVera Najera MD Work Phone: Cancer Appts MCComment on above:Future Appointment Start: 09-18-2024 End: 95-96-1295liznagookzOgice [address] Work Phone: Hematology/OncologyComment on above:Other systemic lupus erythematosus with other organ involvement (HCC) (Primary Dx)Refill RequestStart: 09-07-2024 End: 70-54-3036Izqoki-up encounterVaibhav Carvalho APRN.CNP Work Phone: Hematology/OncologyComment on above:ResultsStart: 09-06-2024 End: 51-27-0057Rnzqykl encounter Gamal Kang MD-[facility] Work Phone: Start: 09-06-2024 End: 14-44-2868Bpofonffv encounterFearnaldo Samuel RNHematology/OncologyComment on above:Medication Preauthorization; AppointmentStart: 09-06-2024 End: 57-33-3608vfrntfppcgDfvye 3 [place] Work Phone: Hematology/OncologyComment on above:Frequent infections (Primary Dx); Hypogammaglobulinemia (HCC); Bilateral leg weakness; Discoid lupus erythematosus; Elevated sed rate; Megaloblastic anemia due to vitamin B12 deficiencyStart: 09-06-2024 End: 38-86-3950Iocser outpatient visit 25 minutesVaibhav Carvalho FIELD MARKETING COORDINATOR.CLINICAL RESEARCH SPEC Work Phone: Hematology/OncologyComment on above: Hypogammaglobulinemia (HCC) (Primary Dx); Vitamin B12 deficiency; Other iron deficiency anemia; Megaloblastic anemia due to vitamin B12 deficiencyStart: 09-06-2024 End: 06-83-6784vueweibrymPHDNXD ROJULIAFacility:[facility]art: 09-04-2024 End: 21-69-2185Wqdzhd outpatient visit 25 minutesGordo Barfield MD Work Phone: noms [facility] HOSPITALKComment on above:Thyroid nodule (CMS/HCC) (Primary Dx); LPRD (laryngopharyngeal reflux disease)Start: 09-04-2024 End: 81-95-0854lklmusxegzYDZZQP H TIMMISNot AvailableStart: 09-04-2024 End: 98-42-1884Wjsedyfernanda Barfield MD Work Phone: noms ENT TANNERKStart: 09-04-2024 End: 07-15-7610Uadzizmaranda Barfield MD Work Phone: noms ENT TANNERKStart: 09-01-2024 End: 64-68-2409QslwkjHjdcbbfx Tsai MD Work Phone: RheumatologyComment on above:Refill RequestStart: 08-29-2024 End: 05-79-0621ukmlfjblnlFHWUDYN M HOYFacility:[facility]art: 08-28-2024 End: 31-82-8110Nltbiddze encounterVaibhav Carvalho FIELD MARKETING COORDINATOR.CLINICAL RESEARCH SPEC Work Phone: Hematology/OncologyComment on above:Lab OrdersStart: 08-24-2024 End: 79-27-9760Xfrfojddh Result EncounterGordo Barfield MD Work Phone: noms External Department UnsolicitedStart: 08-24-2024 End: 41-04-9299Wznhjpsln Result EncounterGordo Barfield MD Work Phone: noms External Department UnsolicitedStart: 08-22-2024 End: 14-04-5169gnifxuynfuOdttqz Sue Cramer LOBSTERMAN-C Work Phone: [facility] Work Phone: Start: 08-22-2024 End: 15-32-4922Nsnkzmv encounter procedureGay LINC Work Phone: [facility] Work Phone: Start: 08-17-2024 End: 00-75-8333Jylemdvlh PharmacyCalhugo Quintanilla [facility] Specialty PharmacyComment on above:SPP Inflammatory Conditions - Medication Refill (Benlysta)Start: 08-08-2024 End: 48-13-0435Ysdngwnjk encounterFelicclaritza Samuel RNHematology/OncologyComment on above:Patient QuestionStart: 08-08-2024 End: 53-56-2389bkusteqqwmUqwgs Quinn Gabbi Work Phone: Hematology/OncologyComment on above:Elevated sed rate (Primary Dx); Megaloblastic anemia due to vitamin B12 deficiency; Frequent infections; Hypogammaglobulinemia (HCC); Bilateral leg weakness; Discoid lupus erythematosusStart: 08-03-2024 End: 37-07-6324VimytpXghz Rozman PA-C Work Phone: OtolaryngologyComment on above:Med Change Request Start: 07-31-2024 End: 92-57-2811ibulbenxlnBnxmdzSandy LINC Work Phone: [facility] Work Phone: Start: 07-31-2024 End: 00-43-1742Fgyorog encounter procedureGay LINC Work Phone: [facility] Includes [facility] Pain Mgmt Work Phone: Start: 07-26-2024 End: 78-34-2288Jrrluk outpatient visit 25 minutesLois Holm MD Work Phone: [facility] BarbourComment on above:Sinus tachycardia (Primary Dx); Shortness of breath; Paroxysmal supraventricular tachycardia (CMS-HCC); Essential hypertension; Obstructive sleep apnea syndrome; Morbid obesity (Multi); Current smokerStart: 07-26-2024 End: 30-78-1789dqkkezcqzfPAROJW M [facility] AmbulatoryStart: 07-25-2024 End: 89-07-2600Fwluyp flowsheetEmjennifer English MD Work Phone: noms SWS DERMStart: 07-25-2024 End: 13-91-2179Ddxehi flowsheetEmjennifer English MD Work Phone: [facility] DERMStart: 07-25-2024 End: 24-24-9118Xeverp outpatient visit 25 minutesEmjennifer English MD Work Phone: noms [facility] DERMComment on above:Hidradenitis suppurativa (Primary Dx); Other seborrheic dermatitis; Lupus erythematosus tumidus (CMS/HCC); Rash and other nonspecific skin eruption; Capillary angioma; Neoplasm of uncertain behavior of skinStart: 07-25-2024 End: 08-80-4007Uxueqhnxf PharmacyCalhugo Quint[facility] Specialty PharmacyComment on above:SPP Inflammatory Conditions - Medication Refill (Benlysta)Start: 07-20-2024 End: 33-76-2270Bmrxavzudpzp consultation with Mich Victoria DO Work Phone: Infectious DiseaseStart: 07-20-2024 End: 66-11-4101kopllcwmieBbuhdrq Lehman DO Work Phone: Infectious DiseaseComment on above:Nipple discharge (Primary Dx); Other systemic lupus erythematosus with other organ involvement (HCC); On prednisone therapy; Long-term use of PlaquenilStart: 99-19-2989Tyo-patient / Non-visitGay De La Torre LOBSTERMAN-C Work Phone: [facility] Work Phone: Start: 07-19-2024 End: 13-48-7744Xyqqbidww to same day surgery Yonny De La Torre LOBSTERMAN-C Work Phone: [facility] Work Phone: Start: 07-19-2024 End: 93-86-8218blmnrixlsjGdhpij Sue Cramer LOBSTERMAN-C Work Phone: [facility] Work Phone: Start: 07-12-2024 End: 60-70-4862rlbtnorhhvBCTL ROZMANFacility:[facility]alt[facility]art: 07-12-2024 End: 17-18-7115Zxkodie encounter procedureMarky Gasca PA-C Work Phone: OtolaryngologyComment on above:LPRD (laryngopharyngeal reflux disease); Dry mouth; Current smoker; Abnormal mouth sensationStart: 07-11-2024 End: 80-30-0940dzttsvcaueXjsne 3 [place] Work Phone: Hematology/OncologyComment on above:Elevated sed rate (Primary Dx); Megaloblastic anemia due to vitamin B12 deficiency; Frequent infections; Hypogammaglobulinemia (HCC); Bilateral leg weakness; Discoid lupus erythematosusStart: 07-10-2024 End: 80-30-7561ilsfkuwcxwQixfgwzbuThe [facility] Work Phone: Start: 07-10-2024 End: 27-83-2148Ueqqwfp encounter procedureCritical Access Hospital Physician [facility] Work Phone: Start: 07-09-2024 End: 60-09-9047Kqpadzmdw encounterLynne Ni MD Work Phone: RheumatologyComment on above:ResultsStart: 06-30-2024 End: 37-68-8524ybmjddwpcoESKVIXTN TSAIFacility:[facility]althtart: 06-29-2024 End: 09-76-9439Bgpijbfrt PharmacyCalhugo [facility] Specialty PharmacyComment on above:SPP Inflammatory Conditions - Medication Refill (Benlysta)Start: 06-20-2024 End: 61-76-3158kzehpjuhdcMex ProviderCancer Appts MCComment on above:Iron InfusionsStart: 06-20-2024 End: 40-70-8261F-mail encounter from caregiverCcf ProviderCancer Appts MCStart: 06-20-2024 End: 42-99-7242Tonukdm encounter procedureLynne Ni MD Work Phone: RheumatologyComment on above:FlairStart: 06-16-2024 End: 24-70-7507Ucdlprtsn encounterVaibhav Carvalho APRN.CNP Work Phone: Hematology/OncologyStart: 06-15-2024 End: 23-16-2890Buwseumii encounterOly WARREN Work Phone: [facility] BCP OBStart: 06-14-2024 End: 71-87-0150Olrqhmi evaluation of patient and reportBreath Test Silverio Cp Nsg Wl Work Phone: [facility] Comment on above:Diarrhea, unspecified type (Primary Dx); Abdominal pressureStart: 06-13-2024 End: 58-25-4373Wbncsu outpatient visit 25 minutesVaibhav Carvalho APRN.CNP Work Phone: Hematology/OncologyComment on above:Megaloblastic anemia due to vitamin B12 deficiency (Primary Dx); Hypogammaglobulinemia (HCC); Positive blood cultures; Malaise and fatigue; SOB (shortness of breath)Start: 06-13-2024 End: 95-64-7513appobcorqgHssv M Freeman Art TherapistArts & MedicineComment on above:Art TherapyElevated sed rate (Primary Dx); Megaloblastic anemia due to vitamin B12 deficiency; Hypogammaglobulinemia (HCC); Frequent infections; Bilateral leg weakness; Discoid lupus erythematosusStart: 06-12-2024 End: 54-92-9549Osbgw [facility] Main Work Phone: NeurologyComment on above:CMNStart: 06-12-2024 End: 09-24-3232Yawltfgrp encounterJamichelleozzy Deven RODRIGUEZ Work Phone: Hematology/OncologyComment on above:Lab OrdersStart: 06-06-2024 End: 38-58-0090Zjgayw flowsheetOly WARREN Work Phone: noms BCP OBStart: 06-06-2024 End: 50-07-7824Yhviio flowsheetOly WARREN Work Phone: noms BCP OBStart: 06-06-2024 End: 86-47-4090Ankpgjwho Result EncounterOly WARREN Work Phone: noms External Department UnsolicitedStart: 06-06-2024 End: 53-61-8214Lvndjflzs PharmacyCalhugo [facility] Specialty PharmacyComment on above:SPP Inflammatory Conditions - Medication Refill (Benlysta)Start: 06-06-2024 End: 79-34-5206Tssugwu encounter procedureOly WARREN Work Phone: [facility] Work Phone: Start: 06-06-2024 End: 71-27-4943Tnbtkvna preventive med est patient 40-64yrsAmy Temo WARREN Work Phone: [facility]oms [facility] OBComment on above:Well woman exam with routine gynecological exam; Breast cancer screening by mammogram; Breast noduleStart: 05-19-2024 End: 45-66-5325ztlbmjysbrKjyik 3 Gabbi Work Phone: Hematology/OncologyComment on above:Frequent infections (Primary Dx); Megaloblastic anemia due to vitamin B12 deficiency; Elevated sed rate; Hypogammaglobulinemia (HCC); Bilateral leg weakness; Discoid lupus erythematosusStart: 05-16-2024 End: 36-98-3399Dbnszi Leighozzy Deven RODRIGUEZ Work Phone: Hematology/OncologyStart: 05-15-2024 End: 80-70-2115Svfoyb WorkLori Addison [facility] HOSPITALematology/OncologyStart: 05-12-2024 End: 36-41-9792Hiicusyjc PharmacyUniversity Hospitals Samaritan Medical Centerhugo Quint[facility]illa [facility] Specialty PharmacyComment on above:SPP Inflammatory Conditions - Medication Refill (Benlysta)Start: 04-28-2024 End: 00-08-1741Vgtzbs OnlyTraci Vahe LPNProMedica Physicians [facility]st Vascular Comment on above:Peripheral vascular disease, unspecified ([facility]-HCC) (Primary Dx); Cold extremities; Systemic lupus erythematosus (CMS-HCC)Start: 04-26-2024 End: 02-01-1632htsxygqsrkPRZEK ABHYANKARFacility:[facility]althtart: 04-26-2024 End: 58-84-7615Pnhmcbh evaluation of patient and reportMa Nurse Sawyer Marshall Work Phone: Hematology/OncologyComment on above:Elevated sed rate (Primary Dx); Megaloblastic anemia due to vitamin B12 deficiencyStart: 04-14-2024 End: 49-39-6505Ijzqwiqsl encounterNortBagley Medical Center Gastroenterology Work Phone: [facility] Comment on above:Patient Update; AppointmentStart: 04-11-2024 End: 89-59-0339Lfcjtkfkq PharmacyUniversity Hospitals Samaritan Medical Centerhugo Quint[facility]illa [facility] Specialty PharmacyComment on above:SPP Inflammatory Conditions - Medication Refill (Benlysta)Start: 04-10-2024 End: 05-06-2788Xdqeip flowsheetGordo Barfield MD Work Phone: noms ENT NORWALKStart: 04-10-2024 End: 53-87-5037Abjkbr flowsheetGordo Barfield MD Work Phone: noms ENT NORWALKStart: 04-10-2024 End: 90-70-1497Svcgthtap encounterVera Najera MD Work Phone: Cancer Appts MCComment on above:AppointmentStart: 04-10-2024 End: 38-80-5634Hredmp outpatient visit 25 minutesGordo Barfield MD Work Phone: noms [facility] NORPLAINVIEW HOSPITALKComment on above:LPRD (laryngopharyngeal reflux disease) (Primary Dx); Acute otalgia, rightStart: 04-10-2024 End: 27-49-8520vwpnkvmfvdBNWYMM H TIMMISNot AvailableStart: 04-07-2024 End: 36-51-8587Dwvlgd WorkLorgodwin Jaime LSWHematology/OncologyStart: 04-06-2024 End: 53-71-1451Mgommhvej Result EncounterOly WARREN Work Phone: noms External Department UnsolicitedStart: 04-06-2024 End: 56-10-3099Reekbpoer Result EncounterOly WARREN Work Phone: noms External Department UnsolicitedStart: 04-06-2024 End: 75-26-9990Pdwyej outpatient new 30 minutesMohamanatoliy Arciniega MD Work Phone: [facility] SurgeryComment on above:Systemic lupus erythematosus ([facility]-HCC) (Primary Dx); Cold extremities; Pain of lower extremity, unspecified laterality; Rheumatoid arthritis, involving unspecified site, unspecified whether rheumatoid factor present (CMS-HCC); Current smoker; 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Start: 04-03-2024 End: 60-91-8871QphckeYgba J Bruner DO Work Phone: [facility] SWS FM 230Comment on above:Oral thrush (Primary Dx)Start: 04-02-2024 End: 21-46-8446Hunywgtew encounterLynne Ni MD Work Phone: RheumatologyComment on above:ResultsStart: 04-02-2024 End: 69-74-9255Obvwrs outpatient visit 25 minutesPatennille Nichols DO Work Phone: [facility] SWS UCComment on above:Oral thrush (Primary Dx) Start: 04-02-2024 End: 67-46-0908uxlccwmicsVEGV J BRUNERNot AvailableStart: 03-31-2024 End: 43-99-4810GdynhColquitt Regional [facility] Center Main Work Phone: NeurologyComment on above:CMNStart: 03-30-2024 End: 48-55-2168nsfvesaezlGjxxxg Tabbaa MD Work Phone: [facility] Start: 03-27-2024 End: 56-63-2828uasfrulcabFhrtk Abhyankar MD Work Phone: Hematology/OncologyComment on above:Megaloblastic anemia due to vitamin B12 deficiency (Primary Dx); High total serum IgM; JOSE RAFAEL (obstructive sleep apnea); Elevated sed rate; Hypogammaglobulinemia (HCC); Frequent infectionsStart: 03-27-2024 End: 68-90-2589Ufuutsbpeyvw consultation with patientVera Najera MD Work Phone: Hematology/OncologyStart: 03-27-2024 End: 23-22-3193vlbrrwxdocACNHU ABHYANKARFacility:[facility]alt[facility]art: 03-23-2024 End: 18-49-3168yltumbilnmXFT RAMEYNot AvailableStart: 03-23-2024 End: 26-05-1280Jpokic outpatient visit 15 minutesOly WARREN Work Phone: noms BCP OBComment on above:Abnormal uterine bleeding (AUB); Menorrhagia with regular cycleStart: 03-23-2024 End: 48-47-6588Fdadzo flowsheetOly WARREN Work Phone: noms BCP OBStart: 03-23-2024 End: 73-51-2547Jlnaia Ganesh WARREN Work Phone: noms BCP OBStart: 03-23-2024 End: 19-67-9087Cxvjkwb evaluation of patient and reportMa Nurse Sawyer Marshall Work Phone: Hematology/OncologyComment on above:Elevated sed rate (Primary Dx); Megaloblastic anemia due to vitamin B12 deficiencyStart: 03-23-2024 End: 03-52-4913wdekfjupjeRFYPKGY M HOYFacility:[facility]althtart: 03-20-2024 End: 48-38-6497Hwlxzxowl encounterAkiko Cooper MD Work Phone: [facility] Start: 03-18-2024 End: 04-57-0176Hebtrts encounter procedureLynne Ni MD Work Phone: RheumatologyComment on above:Other systemic lupus erythematosus with other organ involvement (HCC) (Primary Dx); Fibromyalgia; CHRISTIAN positive; EDS (Emanuel-Danlos syndrome); Elevated sed rate; Vitamin D deficiency; Secondary osteoarthritis of multiple sites; Chronic bilateral low back pain with bilateral sciatica; Chronic pain of toes of both feet; Long-term use of high-risk medication; 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; Bilateral hand pain; Systemic lupus erythematosus, unspecified SLE type, unspecified organ involvement status (HCC); Vitamin B12 deficiency; Discoid lupus erythematosusStart: 03-18-2024 End: 17-93-7519Nuwnktrbcewc consultation with Jyothi Ni MD Work Phone: RheumatologyStart: 03-17-2024 End: 62-72-4439OxvzxvAtvckvmv Tsai MD Work Phone: RheumatologyComment on above:Refill RequestStart: 03-16-2024 End: 47-25-4850Bddvnk flowsheetCorey Skip DO Work Phone: noms BCP OBStart: 03-16-2024 End: 09-99-9161Aoewbs flowsheetCorey Skip DO Work Phone: [facility] BCP OBStart: 03-16-2024 End: 18-26-8018Uxbvum outpatient visit 15 minutesCorey Skip DO Work Phone: noms BCP OBComment on above:Nipple dischargeStart: 03-16-2024 End: 51-72-1411tiaryvzzsoLVZCY FAZIONot AvailableStart: 03-16-2024 End: 18-25-7485jtiiynuvueZI-C Gay De La Torre Work Phone: [facility] Work Phone: Start: 03-16-2024 End: 80-42-5751Tfxkcjb encounter procedureNP-C Gay De La Torre Work Phone: [facility] G[facility] Work Phone: Start: 03-13-2024 End: 48-03-6684Eduixjprw PharmacyCalhugo Quint[facility]illa [facility] Specialty PharmacyComment on above:SPP Inflammatory Conditions - Medication Refill (Benlysta - NCA 09/2024)Start: 03-08-2024 End: 70-79-4035vpzwgkjsspPUCP [facility] Centertart: 03-07-2024 End: 38-63-4583Ktxsg [facility] Main Work Phone: NeurologyComment on above:cmnStart: 03-02-2024 End: 09-12-6476LorrzyXfydzygqsh M Graziani LOBSTERMAN Work Phone: [facility] NEURO 210Comment on above:Lumbosacral radiculopathy at L5; Degenerative disc disease, lumbar; Cervical radiculopathy at R4Xtvke: 02-28-2024 End: 17-70-4165ncseixteacGH-C Gay De La Torre Work Phone: [facility] Work Phone: Start: 02-28-2024 End: 02-43-0385Qtlqlvh encounter procedureNPDestiny De La Torre Work Phone: [facility] Work Phone: Start: 02-22-2024 End: 30-27-7288Unislzgyz encounterOly Elam [facility] Work Phone: Genetic HealthcareComment on above:Bank Boss - Other (Eds scheduling)Start: 02-21-2024 End: 34-47-3191Oycobad evaluation of patient and reportMa Nurse Sawyer Marshall Work Phone: Hematology/OncologyComment on above:Elevated sed rate (Primary Dx); Megaloblastic anemia due to vitamin B12 deficiencyStart: 02-18-2024 End: 74-16-1311Gueslspbo encounterLynne Ni MD Work Phone: RheumatologyStart: 93-55-7441Pnv-patient / Non-visit LOBSTERMAN-C Gay De La Torre Work Phone: [facility] Work Phone: Start: 02-16-2024 End: 23-14-6952Oulftigot to same day surgery centerNP-C Gay De La Torre Work Phone: [facility] Work Phone: Start: 02-16-2024 End: 49-98-5159ulzxkkjxahWS-C Gay De La Torre Work Phone: [facility] Work Phone: Start: 02-15-2024 End: 52-72-5407Neetjdojl encounterLexus Heck APRN.CNP Work Phone: NeurologyComment on above:Orders (PAP RX.)Start: 02-14-2024 End: 78-14-5807Lpdacb-up encounterAidee [facility] Comment on above:SPP Inflammatory Conditions - Follow-up (Benlysta); Insurance Authorization ([place] Renewal Submitted)Start: 02-14-2024 End: 99-49-2759dyepayqfcpKgekyrjfvEris Heck APRN.CNP Work Phone: NeurologyComment on above:JOSE RAFAEL (obstructive sleep apnea) (Primary Dx); Somnolence, daytimeSPP Inflammatory Conditions - Medication Refill (Benlysta - NCA 09/2024)Start: 02-14-2024 End: 20-29-6301Gcwnenjmzetq consultation with rolaLexus Umang CLINICAL RESEARCH SPEC Work Phone: NeurologyStart: 02-09-2024 End: 64-71-0458Cfdauh flowsqianZita Lynne Blandongodwin LOBSTERMAN Work Phone: noms BM NEUROLOGYStart: 02-09-2024 End: 79-98-5942Vadyde flowsheetZita Lynne Blandongodwin LOBSTERMAN Work Phone: noms NEUROLOGYStart: 02-09-2024 End: 46-97-6950Aphp/qhp telephone evaluation Cesilia Lynne oPlo LOBSTERMAN Work Phone: noms [facility] NEUR[facility] 210Comment on above:Lumbosacral radiculopathy at L5 (Primary Dx); Degenerative disc disease, lumbar; Cervical radiculopathy at U0Sechx: 02-07-2024 End: 04-15-8615ScitniNdjxyhcrks Lynne Blandongodwin LOBSTERMAN Work Phone: noms [facility] NEUR[facility] 210Comment on above:Autoimmune disease (CMS/HCC); Fibromyalgia; NumbnessStart: 01-28-2024 End: 46-86-5201qumhdakuoyHndiewj Lehman DO Work Phone: [facility] Work Phone: Comment on above:Blood workStart: 01-28-2024 End: 36-25-2901Thstxzj encounter procedureCritical Access Hospital Physician Group-[facility] Pain Management [place] Work Phone: Start: 01-27-2024 End: 48-78-0137Lukcoxfnrnxh consultation with Mich Victoria DO Work Phone: Infectious DiseaseStart: 01-27-2024 End: 29-21-3333hzhdaalmjkEcrbpyp Lehman DO Work Phone: Infectious DiseaseComment on above:Pseudomonas infection (Primary Dx); Other systemic lupus erythematosus with other organ involvement (HCC); On prednisone therapy; Long-term use of PlaquenilStart: 01-25-2024 End: 59-58-9356Cukefdc evaluation of patient and reportMa Nurse Sawyer Marshall Work Phone: Hematology/OncologyComment on above:Elevated sed rate (Primary Dx); Megaloblastic anemia due to vitamin B12 deficiencyStart: 01-20-2024 End: 18-81-8205QeidzcFckczyl W Bauer MD Work Phone: NODP [facility] NEUR[facility] 210Comment on above:Degenerative disc disease, lumbar (Primary Dx); Lumbosacral radiculopathy at D1Fisni: 01-18-2024 End: 12-17-0471Zldlakynb PharmacyCalhugo [facility] Specialty PharmacyComment on above:SPP Inflammatory Conditions - Medication Refill (Benlysta)Start: 01-12-2024 End: 15-64-6524prytoelpmvYctujpzv Tsai MD Work Phone: RheumatologyStart: 01-12-2024 End: 32-08-5206Rwkplgf encounter procedureLynne Ni MD Work Phone: RheumatologyComment on above:FlairStart: 12-30-2023 Telephone encounterLynne Ni MD Work Phone: RheumatologyComment on above:ResultsStart: 12-27-2023 Telephone encounterMinedy Hill PA-C Work Phone: Hematology/OncologyComment on above:ResultsStart: 12-27-2023 End: 63-67-8823Qgsaymh evaluation of patient and reportMa Nurse Sawyer Marshall Work Phone: Hematology/OncologyComment on above:Elevated sed rate (Primary Dx); Megaloblastic anemia due to vitamin B12 deficiencyStart: 12-27-2023 End: 88-41-2779Puujxx outpatient visit 15 minutesMinedy Hill PA-C Work Phone: Hematology/OncologyComment on above:Megaloblastic anemia due to vitamin B12 deficiency (Primary Dx); Elevated sed rate; Obstructive sleep apnea syndromeStart: 12-24-2023 End: 65-18-1521ijjgiswifjNLPTHY [facility] AmbulatoryStart: 12-16-2023 End: 47-63-6043rnrwsktnbnTeetjcqahAvita Health System Work Phone: Start: 12-16-2023 End: 11-20-4432Kxuicsr encounter procedureCritical Access Hospital Physician GroupMOHAWK [facility] Infectious Disease Work Phone: Start: 79-61-8585Osoljuapk PharmacyCalhugo Quintanilla [facility] Specialty PharmacyComment on above:SPP Inflammatory Conditions - Medication Refill (Benlysta - NCA 09/2024)Start: 11-29-2023 End: 69-99-9945Xjszvyp evaluation of patient and reportMa Nurse Sawyer Marshall Work Phone: Hematology/OncologyComment on above:Elevated sed rate (Primary Dx); Megaloblastic anemia due to vitamin B12 deficiencyStart: 16-28-3515opamvnckzx Vera Najera MD Work Phone: Hematology/OncologyComment on above:Folic acidStart: 55-64-6885Jyucgtwnx PharmacyAidee [facility] Specialty PharmacyComment on above:SPP Inflammatory Conditions - Medication Refill (Benlysta - NCA 09/2024) Start: 60-51-4954WqtkghNnnwyema Tsai MD Work Phone: RheumatologyComment on above:Refill RequestStart: 11-04-2023 End: 72-02-4267dphodcvvptKqjoqpoznAvita Health System Work Phone: Start: 11-04-2023 End: 38-55-7290Spqbvef encounter procedureCritical Access Hospital Physician [facility] Infectious Disease Work Phone: Start: 10-27-2023 End: 72-96-5287Fgccrtr evaluation of patient and reportMa Nurse Sawyer Sand Work Phone: Hematology/OncologyComment on above:Elevated sed rate (Primary Dx); Megaloblastic anemia due to vitamin B12 deficiencyStart: 81-51-1397mhbkbiiomg Lynne Ni MD Work Phone: RheumatologyStart: 22-91-5914Jmfgnhq encounter procedureLynne Ni MD Work Phone: RheumatologyComment on above:CdiffStart: 10-20-2023 End: 99-46-6322kbgjzexpqyAyknypwwp [facility] Work Phone: Start: 10-20-2023 End: 98-98-1380Ewthtpv encounter procedureCritical Access Hospital Physician Group-[facility] Infect[facility] Disease Work Phone: Start: 18-36-2110Prgmraole PharmacyUniversity Hospitals Samaritan Medical Centerhugo Quintanilla [facility] Specialty PharmacyComment on above:SPP Inflammatory Conditions - Medication Refill (Benlysta)Start: 10-05-2023 End: 18-94-7445Yvaboea encounter procedureLynne Ni MD Work Phone: eumatologyComment on above:Other systemic lupus erythematosus with other organ involvement (HCC) (Primary Dx); Elevated sed rate; Fibromyalgia; CHRISTIAN positive; Family history of Crohn's disease; Secondary osteoarthritis of multiple sites; Chronic bilateral low back pain with bilateral sciatica; Chronic pain of toes of both feet; Long-term use of Plaquenil; Long-term use of high-risk medication; 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; 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; Bilateral hand pain; History of vitamin D deficiencyStart: 10-05-2023 End: 48-09-6059Bnkrgkwuqduz consultation with patientLynne Ni MD Work Phone: RheumatologyStart: 09-30-2023 End: 40-63-0819Spxacye evaluation of patient and reportMa Nurse Sawyer Marshall Work Phone: Hematology/OncologyComment on above:Elevated sed rate (Primary Dx); Megaloblastic anemia due to vitamin B12 deficiencyStart: 09-22-2023 End: 72-12-5521Jzmzbjc encounter procedureFirnicanor Physician Group-[facility] Gastroenterology Work Phone: Start: 49-11-7616Rmdxjvgin PharmacyAidee Quintanilla [facility] Specialty PharmacyComment on above:SPP Inflammatory Conditions - Medication Refill (Benlysta)Start: 09-09-2023 End: 52-35-2121ooiyzaugmyYokkl Abhyankar MD Work Phone: Hematology/OncologyComment on above:Megaloblastic anemia due to vitamin B12 deficiency (Primary Dx); Obstructive sleep apnea syndrome; Chronic fatigue and malaise; High total serum IgM; JOSE RAFAEL (obstructive sleep apnea); Somnolence, daytimeStart: 09-09-2023 End: 64-19-6764Yercpaphwsou consultation with Treasure Najera MD Work Phone: SANDUSKYStart: 65-58-7500Tyyolfqdi encounterLynne Ni MD Work Phone: RheumatologyComment on above:ResultsStart: 08-31-2023 End: 11-42-0522Fzwkxvw evaluation of patient and reportMa Nurse Sawyer Marshall Work Phone: Hematology/OncologyComment on above:Megaloblastic anemia due to vitamin B12 deficiency (Primary Dx); Elevated sed rateStart: 22-50-9248Xzfehtkfk PharmacyAidee [facility]illa [facility] Specialty PharmacyComment on above:SPP Inflammatory Conditions - Medication Refill (Benlysta )Start: 08-05-2023 End: 22-90-8768Dpvvilp evaluation of patient and reportMa Nurse Sawyer Marshall Work Phone: Hematology/OncologyComment on above:Megaloblastic anemia due to vitamin B12 deficiency (Primary Dx); Elevated sed rateStart: 98-94-1641Bvh-patient / Non-visitFirnicanor Physician Group-[facility] Gastroenterology Work Phone: Start: 91-26-3522prxhuovwmjUsecad [facility] MAINStart: 07-13-2023 End: 38-56-7759Gzvdsbk evaluation of patient and reportMa Nurse Sawyer Marshall Work Phone: Hematology/OncologyComment on above:Megaloblastic anemia due to vitamin B12 deficiency (Primary Dx); Elevated sed rateSPP Inflammatory Conditions - Medication Refill (Benlysta ) Start: 07-13-2023 End: 43-98-9749Lauhba outpatient new 45 minutesLois Holm MD Work Phone: [facility] CincinnatiComment on above:Shortness of breath (Primary Dx); Paroxysmal supraventricular tachycardia; PAC (premature atrial contraction); Current smoker; Systemic lupus erythematosus, unspecified SLE type, unspecified organ involvement status (CMS/HCC); Palpitations; Obstructive sleep apnea syndrome; Morbid obesity (CMS/HCC); Bilateral lower extremity edemaStart: 07-06-2023 End: 82-33-5859Eempoj outpatient visit 25 minutesKade Early MD Work Phone: noms [facility] 210Comment on above:Autoimmune disease (CMS/HCC) (Primary Dx); Autonomic dysfunction; Lumbosacral radiculopathy; Bilateral leg weaknessStart: 41-41-5802Vdzez abstractingKade Early MD Work Phone: [facility] 210Start: 06-09-2023 End: 97-98-5483Chmgof outpatient new 60 minutesMichelle Jasmine APRN-CLINICAL RESEARCH SPEC Work Phone: [facility] System– OakridgeComment on above:Irregular heart rate (Primary Dx); Essential hypertension; Autonomic dysfunction; Obstructive sleep apnea syndrome; Primary hypertensionStart: 05-26-2023 End: 21-39-7587Omzdcd outpatient visit 40 minutesChristie Phan MD Work Phone: Integrated MedicineComment on above:Obesity, Class III, BMI >= 40 (Primary Dx); Other chronic painStart: 04-26-2023 End: 96-27-6062Iwiiuf outpatient visit 40 minutesChristie Phan MD Work Phone: Integrative and Lifestyle MedicineComment on above: Obesity, Class III, BMI >= 40 (Primary Dx); FUO (fever of unknown origin); Other chronic painStart: 98-89-3831xsptdtirzxXvbwtss Ruff MD Work Phone: Integrative and Lifestyle MedicineComment on above: PhentermineStart: 59-23-0312Aacjpuigs encounterEnma Hamm RN Hematology/OncologyComment on above:ResultsStart: 04-16-2023 End: 95-92-9856Dnsebql evaluation of patient and reportMa Nurse Sawyer Sand Work Phone: Hematology/OncologyComment on above:Megaloblastic anemia due to vitamin B12 deficiency (Primary Dx); Elevated sed rateStart: 03-19-2023 End: 14-49-1831Clnlkqm evaluation of patient and reportMa Nurse Sawyer Sand Work Phone: Hematology/OncologyComment on above:Megaloblastic anemia due to vitamin B12 deficiency (Primary Dx); Elevated sed rateStart: 37-22-1356Hwbkp [facility] Main Work Phone: NeurologyComment on above:CMNStart: 03-11-2023 End: 79-81-1575Kkyhwol evaluation of patient and reportNurse [facility] Hospitalbharath [facility] Nickie Work Phone: RheumatologyComment on above:Systemic lupus erythematosus, unspecified SLE type, unspecified organ involvement status (HCC) (Primary Dx)Start: 16-57-2467Qhyfmbjjy encounterLynne Ni MD Work Phone: RheumatologyComment on above:Results (Eye Exam)Start: 02-19-2023 End: 51-81-4122Qpfxriq evaluation of patient and reportMa Nurse Sawyer Sand Work Phone: Hematology/OncologyComment on above:Megaloblastic anemia due to vitamin B12 deficiency (Primary Dx); Elevated sed rateStart: 02-19-2023 End: 50-26-6110Ynvbsn outpatient visit 15 minutesVera Najera MD Work Phone: Hematology/OncologyComment on above:Megaloblastic anemia due to vitamin B12 deficiency (Primary Dx); Elevated sed rate; Chronic fatigue and malaise; High total serum IgM; JOSE RAFAEL (obstructive sleep apnea)Start: 43-52-9065XfgeftChmzysax Tsai MD Work Phone: [facility] CentermatologyComment on above:Refill RequestStart: 02-04-2023 End: 56-76-1722mphshchbvnHpvpeezm Tsai MD Work Phone: eumatologyComment on above:Other [...] deficiency; Elevated sed rate; Bilateral wrist pain; FCI current use of systemic steroids; Steroid-induced osteoporosis; 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Start: 77-93-5153Mymlwrf encounter procedure Clinton Schroeder (Pharmacist)[facility] Specialty PharmacyComment on above:SPP Inflammatory Conditions - Treatment Referral (Benlysta); Insurance Authorization ([place] submissionpenniharika)Start: 92-71-7883Nylqfubzs encounterLynne Ni MD Work Phone: [facility] CentertologyComment on above:Appointment; Orders; Medication AuthorizationStart: 02-04-2023 End: 63-05-8427Cwzdmdzhzdyk consultation with patientLynne Ni MD Work Phone: [facility] CENTERtart: 02-21-0141NeaqadCetljtc Ruff MD Work Phone: Integrated MedicineComment on above:Refill Request Start: 16-04-9747Vlsjrslmo encounterLynne Ni MD Work Phone: [facility] CentertologyComment on above:ResultsStart: 01-22-2023 End: 68-88-8840Yntivsq evaluation of patient and reportMa Nurse Sawyer Marshall Work Phone: Hematology/OncologyComment on above:Megaloblastic anemia due to vitamin B12 deficiency (Primary Dx); Elevated sed rateStart: 95-98-6769IiqbthEduardo Najera MD Work Phone: Hematology/OncologyComment on above:Megaloblastic anemia due to vitamin B12 deficiency (Primary Dx); High total serum IgM; Elevated sed rateStart: 01-01-2023 End: 02-09-6242lyhlnsssecVgiyi Patadia MD Work Phone: AllergyComment on above:High total serum IgM (Primary Dx); Low serum IgG for age; Current smokerStart: 01-01-2023 End: 45-95-6474Nroruyxrlahe consultation with Robson Nelson MD Work Phone: [facility] MAINStart: 78-60-7738Akcaor Christie Phan MD Work Phone: Integrated MedicineComment on above:Refill Request Start: 23-06-7622Auzltkhhz encounterLidia Argueta RN Work Phone: Hematology/OncologyComment on above:Care Coordination (appointment)Start: 12-17-2022 End: 43-33-5970ymrxvkhtxoXdnzoTom Rojas APRN.CNP Work Phone: Hematology/OncologyComment on above:Megaloblastic anemia due to vitamin B12 deficiency (Primary Dx); Chronic fatigue and malaiseStart: 12-17-2022 End: 59-74-3335Oftmtltxzspp consultation with Sonali Rojas APRN.CNP Work Phone: SANDUSKYStart: 03-65-2406Rdhdoamcm encounterRefrank Bettencourt RN Work Phone: Hematology/OncologyComment on above:AppointmentStart: 61-12-5033vhiczayzaaIjnkeNhan Najera MD Work Phone: Hematology/OncologyComment on above:Test resultsStart: 07-77-5401Zoemhbvbt encounterEnma Hamm RNHematology/OncologyComment on above:ResultsStart: 56-13-2136kebcfpawzyEznocsen Tsai MD Work Phone: RheumatologyComment on above:updateStart: 11-19-2022 End: 29-85-7390Qontonm evaluation of patient and reportMa Nurse Sawyer Marshall Work Phone: Hematology/OncologyComment on above:Megaloblastic anemia due to vitamin B12 deficiency (Primary Dx); Elevated sed rateStart: 10-22-2022 End: 11-92-2102Pmajpgu evaluation of patient and reportMa Nurse Sawyer Marshall Work Phone: Hematology/OncologyComment on above:Megaloblastic anemia due to vitamin B12 deficiency (Primary Dx); Elevated sed rateStart: 10-22-2022 End: 41-90-9605Tnarav outpatient visit 15 minutesVera Najera MD Work Phone: Hematology/OncologyComment on above:Megaloblastic anemia due to vitamin B12 deficiency (Primary Dx); Elevated sed rate; High total serum IgM; Chronic fatigue and malaise; Obstructive sleep apnea syndromeStart: 09-24-2022 End: 30-62-5826juxbwwxywiJGV RAMEY .Facility:D7Cfqjb: 09-24-2022 End: 46-23-4780Lnkckso evaluation of patient and reportMa Nurse Sawyer Marshall Work Phone: Hematology/OncologyComment on above:Megaloblastic anemia due to vitamin B12 deficiency (Primary Dx); Elevated sed rateStart: 09-10-2022 End: 40-43-3834iqhzdlbtvxIL DOUGLAS HOY .Facility:K7Gxzgu: 64-41-8283Wvwxlythb encounterAngelia [facility] - ComplianceComment on above:Compliance AdherenceStart: 09-07-2022 End: 90-23-7385Qzokab outpatient visit 40 minutesChristie Phan MD Work Phone: Integrative and Lifestyle MedicineComment on above: Obesity, Class III, BMI >= 40 (Primary Dx); Polypharmacy; Pre-diabetesStart: 09-01-2022 End: 45-73-9635hqncmnielyPQ MANUEL CHEYENNECristina .Facility:Z5Hzqbm: 20-07-2641Wjykjc Lynne Ni MD Work Phone: RheumatologyComment on above:Refill RequestStart: 08-27-2022 End: 37-16-9777Anloylr evaluation of patient and reportMa Nurse Sawyer Marshall Work Phone: Hematology/OncologyComment on above:Megaloblastic anemia due to vitamin B12 deficiency (Primary Dx); Elevated sed rateStart: 08-27-2022 End: 03-92-8190umjsdkqgdwPcnfmKathy Rojas APRN.CNP Work Phone: Hematology/OncologyComment on above:Megaloblastic anemia due to vitamin B12 deficiency (Primary Dx); Elevated sed rate; High total serum IgM; Chronic fatigue and malaise; JOSE RAFAEL (obstructive sleep apnea)Start: 08-27-2022 End: 05-14-9653Eprehdo encounter Kaley Rojas APRN.CNP Work Phone: SANDUSKYStart: 44-24-3335Lyhqbryxs encounterLynne Ni MD Work Phone: RheumatologyComment on above:ResultsStart: 08-15-2022 ambulatoryLynne Ni MD Work Phone: RheumatologyComment on above:updateStart: 08-10-2022 RefillChristie Phan MD Work Phone: [facility] for Integrative MedComment on above:Refill Request Start: 07-27-2022 End: 68-92-6022sbuipcsygbRotgczrtcEris Heck APRN.CNP Work Phone: NeurologyComment on above:JOSE RAFAEL (obstructive sleep apnea) (Primary Dx)Start: 07-27-2022 End: 56-01-1582Edwaxwulxqlj consultation with Sara Heck APRN.CNP Work Phone: [facility] HILLCRESTStart: 91-75-8400jpdlnbqzsjSfcabxqs Tsai MD Work Phone: RheumatologyComment on above:Blood workStart: 46-85-1424Nkeknwrqv encounterVera Najera MD Work Phone: Hematology/OncologyComment on above:Orders (Lab Orders Before Appointment)Start: 16-51-2587cjkzjbfpgzYaynby Devnani MD Work Phone: [facility] MAINStart: 99-56-6123Xvznvbw encounter procedureLawanda Miranda MD Work Phone: NeurologyComment on above:AppointmentStart: 05-20-2022 End: 50-88-3624Viboikz evaluation of patient and reportMa Nurse Sawyer Marshall Work Phone: Hematology/OncologyComment on above:Megaloblastic anemia due to vitamin B12 deficiency (Primary Dx); Elevated sed rateStart: 05-20-2022 End: 05-29-9124byitxoyjxeDdttg Abhyankar MD Work Phone: Hematology/OncologyComment on above:High total serum IgM (Primary Dx); Elevated sed rate; Somnolence, daytime; JOSE RAFAEL (obstructive sleep apnea)Start: 05-20-2022 End: 41-60-8624Unrxhxp encounter procedureVera Najera MD Work Phone: SANDUSKYStart: 51-49-7123rarnnnvrcnWzxzgx Devnani MD Work Phone: NeurologyComment on above:CpapStart: 05-05-2022 Telephone encounterJami Rivera PSSHome Respiratory TherapyComment on above:PAP Therapy Follow UpPAP Rx Faxed (YUNIOR Seo)Start: 90-17-9384Pmsumgici encounterNy Lance MD Work Phone: Pediatric GenomicsComment on above:Future Appointment (Scheduling questions/concerns)Start: 44-64-0517Kjbysrhnz encounterAlyssa Licea Research CoordinatorGenetic HealthcareComment on above:Appointment; Bank Boss - OtherStart: 03-31-2022 End: 50-82-2435ncyjlfwjjyMRPrashanth FERRIS .Facility:S6Avdep: 64-37-4588Slxdjw Christie Phan MD Work Phone: [facility] for Integrative MedComment on above:Refill Request Start: 43-29-6955utobqmpmbaUjeco Patadia MD Work Phone: AllergyComment on above:PneumovaxStart: 08-23-0471S- mail encounter from Dana Nelson MD Work Phone: AMHERSTStart: 22-95-2201Zcgxynzyo encounterMisty Nelson MD Work Phone: AllergyComment on above:PneumovaxStart: 03-21-2022 End: 66-46-4588jimviwcyviOH EL ROSSI .Facility:K3Grhxb: 03-18-2022 End: 60-87-2857weupetlmpyJmfqt Abhyankar MD Work Phone: Hematology/OncologyComment on above:Megaloblastic anemia due to vitamin B12 deficiency (Primary Dx); High total serum AaNZ4fUtbww: 27-73-1779D-mail encounter from John Phan MD Work Phone: [facility] CAMPUSStart: 03-18-2022 End: 09-37-3095Ctxbpmr encounter procedureVera Najera MD Work Phone: SANDUSKYStart: 03-12-2022 End: 43-09-3045yrivfvkqcfLYPrashanth FERRIS .Facility:G9Rpqtd: 03-10-2022 End: 52-00-8048mhdbmmfwbkCimmagr Lehman DO Work Phone: Infectious DiseaseComment on above:resultsRaised level of immunoglobulins (Primary Dx); Wound healing, delayed; Current smokerStart: 77-73-1518R-mail encounter from Jean Victoria DO Work Phone: [facility] MAINStart: 03-10-2022 End: 78-38-5461Qtscuazxanxd consultation with Robson Nelson MD Work Phone: AMHERSTStart: 03-09-2022 End: 61-88-8094lfxyudimelRDJKHP CRAMERFacility:P8Zwfgq: 03-09-2022 End: 12-54-4898Zzrtqr consultation new/estab patient 80 Dorothea Phan MD Work Phone: [facility] for Integrative MedComment on above:Obesity, Class II, BMI 35-39.9 (Primary Dx); Somnolence, daytime; Chronic fatigue and malaise; Obesity, unspecified classification, unspecified obesity type, unspecified whether serious comorbidity present; Snoring; POTS (postural orthostatic tachycardia syndrome); Elevated glucose; Raised level of immunoglobulinsStart: 87-24-2731Xlcznblte encounterBeminnie Victoria DO Work Phone: Infectious DiseaseComment on above:Opened In Error Start: 43-53-0464tzggrdujyjPffwluhp Tsai MD Work Phone: RheumatologyComment on above:resultsStart: 03-05-2022 Telephone encounterLynne Ni MD Work Phone: RheumatologyComment on above:ResultsStart: 03-04-2022 End: 53-98-0744zicethvdmhAbutpNhan Najera MD Work Phone: Hematology/OncologyComment on above:High total serum IgM (Primary Dx); Megaloblastic anemia due to vitamin B12 deficiency; Somnolence, daytime; Snoring; Chronic fatigue and malaise; Obesity, unspecified classification, unspecified obesity type, unspecified whether serious comorbidity presentStart: 03-04-2022 End: 64-92-6357Jvbpsgf encounter Jorge Najera MD Work Phone: SANDUSKYStart: 53-21-0194Vnxyp abstractReji Najera MD Work Phone: Hematology/OncologyStart: 90-46-5543Fvklevugn encounterMilena Gandara MD Work Phone: Infectious DiseaseComment on above:Opened In Error Start: 02-24-2022 End: 64-25-1623bcneymetbbCqckrfv Lehman DO Work Phone: Infectious DiseaseComment on above:Swelling of lymph nodes (Primary Dx); Other systemic lupus erythematosus with other organ involvement (HCC); On prednisone therapy; Hair loss; Bilateral sacroiliitis (HCC); Long-term use of PlaquenilStart: 02-24-2022 End: 18-19-7283Yapovoierorx consultation with Mich Victoria DO Work Phone: [facility] MAINStart: 02-14-2022 End: 15-77-0254uqnihzeawmXU MANUEL FERRIS .Facility:Y2Kqzjh: 11-26-2021 End: 94-64-7726kzrtepxdkfBfyqdvv Blank Other [employer] Other Start: 93-81-2508Tynpdt outpatient visit 25 minutes Mirela Odom Infectious DiseaseStart: 11-17-2021 End: 49-88-6106klsbbbznqlJLPrashanth BAERFacility:E7Fojox: 10-24-2021 End: 20-85-6542Zzctcsy encounter procedureLynne Ni MD Work Phone: RheumatologyComment [...] history of Crohn's disease; FibromyalgiaStart: 10-15-2021 End: 84-09-6671ormehjnmbiKgzhfzn Blank Other [employer] Other Start: 10-29-5031Kroxlg outpatient visit 25 minutes Mirela BaerJOHN Infectious DiseaseStart: 10-03-2021 End: 71-59-6670rgmqhukjpcFW MIRELA BAERFacility:F8Vylft: 09-18-2021 End: 88-01-6069yuozbzmcduHtyiegu Blank Other [employer] Other Start: 83-20-5172Zacackynh encounterMichael BlankFPG Infectious DiseaseStart: 09-11-2021 End: 12-58-4333bwwziohdweIfjkrup Blank Other [facility] [employer] Other Start: 73-08-7105Mayfln outpatient new 45 minutes Mirela BaerJOHN Infectious DiseaseStart: 10-07-2020 End: 01-92-7915wntsfdtuamMCKTRAdena Regional Medical Centertart: 10-07-2020 End: 29-04-6897Sqvqdrvehy hospital visit by physicianStv Daycare Worker Rm ASTVZ Cath LabComment on above:ArrivedStart: 09-14-2018 End: 18-76-4086Vauhthw encounter procedureROBNASREEN Batista [facility] Procedures DateProcedureProcedure DetailPerforming ClinicianStart: 09-97-8166Yfavb culture Gay De La Torre LOBSTERMAN-C Work Phone: [phone]-art: 61-73-9226Wcous cultureGay De La Torre LOBSTERMAN-C Work Phone: [phone]-art: 68-01-4454XIXOCUY Berlin Blum MD Work Phone: Start: 59-58-5112NTYCXSATA Berlin Blum MD Work Phone: Start: 89-94-4433Ikdwggp of pilonidal cystGay De La Torre LOBSTERMAN-C Work Phone: [phone]-art: 86-49-1734Nepnrir microbial cultureGay De La Torre LOBSTERMAN-C Work Phone: [phone]-art: 26-71-6106Rtxe stain microscopyGay De La Torre LOBSTERMAN-C Work Phone: Start: 51-70-8805Tndkx cultureGay De La Torre LOBSTERMAN-C Work Phone: Start: 78-65-8236LQ Nerve Radio Frequency (Bilateral) Gay De La Torre LOBSTERMAN-C Work Phone: Start: 54-71-1249Wloux count complete automated Lynne Ni MD Work Phone: Start: 19-46-3291Lfevg count complete automated Lynne Ni MD Work Phone: Start: 54-15-7038S-reactive proteinLynne Ni MD Work Phone: Start: 78-34-8609Dmchq of gammaglobulin iga igd igg igm eachJaimee Deven FIELD MARKETING COORDINATOR.CLINICAL RESEARCH SPEC Work Phone: Start: 58-42-1109Ng soft tissue head & neck real time imge docJinny Barfield MD Work Phone: Start: 88-43-5739Znzsclhmx of local anesthetic into sacroiliac jointGay De La Torre LOBSTERMAN-C Work Phone: Start: 81-29-6112Rxsah count complete auto&auto difrntl wbcJaimee Deven FIELD MARKETING COORDINATOR.CLINICAL RESEARCH SPEC Work Phone: Start: 92-78-6377MZU,APTIMA HPV,AGE GDLNOly WARREN Work Phone: Start: 64-66-4577Mvpjcbyxkhu observation [Identifier] in Cervix by Cyto stainBernabe English MD Work Phone: Start: 20-28-4820Usogb count complete auto&auto difrntl wbcLeonardok Marquis LEE Work Phone: Start: 12-04-8877BsgzwsuxphzAewix Petitti MD Work Phone: Start: 91-33-8720TBV CBC WITH AUTO DIFFOly WARREN Work Phone: Start: 02-37-2646DXG THYROID STIM HORMONEOly WARREN Work Phone: Start: 02-85-2621SQC THYROXINE (T4) FREEOly WARREN Work Phone: Start: 70-41-1325YIZ APTTAjesenia Temo WARREN Work Phone: Start: 91-65-9011PMR HEMOGLOBIN A1COly Temo WARREN Work Phone: Start: 70-90-5846ARWOFQ PROTHROMBIN TIME INR W/O COUM Oly WARREN Work Phone: Start: 38-73-2211GDF PREG QUANT HCGOly Temo WARREN Work Phone: Start: 99-93-7277HcplwpnkqqiTxjaug Ibrahim MD Work Phone: Start: 03-23-2024 End: 91-12-1964Hwtnh dip stick/tablet rgnt non-auto w/o micrscpAjesenia WARREN Work Phone: Start: 32-58-8386Witjttetv of local anesthetic into sacroiliac jointNP-C Gay De La Torre Work Phone: Start: 85-13-0188Asl routine ecg w/least 12 lds w/i&r Lois Holm MD Work Phone: Start: 79-25-7490Ywh routine ecg w/least 12 lds w/i&r Michelle Jasmine FIELD MARKETING COORDINATOR-CLINICAL RESEARCH SPEC Work Phone: Start: 28-50-7193Lbdidqrpnfu observation [Identifier] in Cervix by Cyto stainCorey Skip DO Work Phone: Start: 23-51-9375Uwuy cerv/vag auto thin layer prep mnl screenCorey Skip DO Work Phone: Start: 10-07-2020 End: 44-49-4633Vinkfsf catheterizationJonas Black MD Work Phone: Start: 40-70-2018Emyuyawc [Moles/volume] in Serum or PlasmaJonas Black MD Work Phone: Start: 95-44-5798UYDCQHKOQG W/GFR POINT OF CAREJonas Black MD Work Phone: Start: 10-07-2020 End: 63-67-4434Bkwj bld gluc mntr dev cleared fda spec home useJonas Black MD Work Phone: Start: 81-40-1997Szidrotye [Moles/volume] in Serum or PlasmaJonas Black MD Work Phone: Start: 02-94-2748Cadazn [Moles/volume] in Serum or PlasmaJonas Black MD Work Phone: Start: 67-15-2081Bwjnm test visual color cmprsn methsAfabricio Black MD Work Phone: Start: 68-79-3266Elqbx foot complete minimum 3 views VICTOR MANUEL GUZMAN Plan of Treatment DateCare ActivityDetailAuthorStart: 11-20-1267Xfoddbnuz for malignant neoplasm of cervixNOMS HealthcareStart: 77-18-0617Aywoxmzqk for malignant neoplasm of cervixNOMS HealthcareStart: 64-32-6625Vywhmbgwc for malignant neoplasm of cervix Pap SmearSelect Medical [facility] SystemStart: 07-26-2025 End: 41-35-2496Kepvqgd encounter sxwgdmilf69/05/2026 11:00 AM EST Office Visit [place] [address] [phone] Lois Holm MD [address] [place] [address] [address] [place] [address] [facility]bourStart: 07-25-2025 End: 96-64-8511Cqzmpnd encounter procedureNOMS SWS DERMStart: 04-20-2025 End: 768731-fysvpfkxdtaecd D3 [Mass/volume] in Serum or PlasmaVITAMIN D 25 HYDROXY Lab Routine Vitamin D deficiency Expected: 04/20/2025 (Approximate), Expires: 08/28/2026C[facility] ClinicComment on above:Expected: 04/20/2025 (Approximate), Expires: 01/18/2026Start: 04-20-2025 End: 01-18-2026 reactive protein [Mass/volume] in Serum or PlasmaC-REACTIVE PROTEIN Lab Routine Elevated C-reactive protein (CRP) Elevated sed rate Expected: 04/20/2025 (Approximate), Expires: 01/18/2026leveland ClinicComment on above:Expected: 04/20/2025 (Approximate), Expires: 01/18/2026Start: 04-20-2025 End: 36-38-2602XCO panel - Blood by Automated countCOMPLETE BLOOD COUNT Lab Routine Anemia of chronic disease Expected: 04/20/2025 (Approximate), Expires: 01/18/2026leveland ClinicComment on above:Expected: 04/20/2025 (Approximate), Expires: 01/18/2026Start: 04-20-2025 End: 58-29-2645Fskqgiplbbhdx metabolic 2000 panel - Serum or PlasmaCOMPREHENSIVE METABOLIC PANEL Lab Routine Elevated LFTs Expected: 04/20/2025 (Approximate), Expires: 01/18/2026[facility] Work Phone: Comment on above:Expected: 04/20/2025 (Approximate), Expires: 01/18/2026Start: 04-20-2025 End: 19-65-5427Xbaeyjmjcma sedimentation rateSEDIMENTATION RATE, WESTERGREN Lab Routine Elevated C-reactive protein (CRP) Elevated sed rate Expected: 04/20/2025 (Approximate), Expires: 01/18/2026leveland ClinicComment on above:Expected: 04/20/2025 (Approximate), Expires: 01/18/2026Start: 74-23-5272Cijvmplnk for malignant neoplasm of breastMammogramNOReynolds County General Memorial HospitalStart: 45-03-0456Yvskn BMI ScreeningAdult BMI ScreeningSelect Medical [facility] SystemStart: 37-95-7952Vmuncipgc for malignant neoplasm of breastKettering Health TroyStart: 23-52-7659Glthadt ScreeningTobacco ScreeningProAshtabula General Hospital SystemStart: 03-23-2025 End: 61-38-1111Jfzuwap encounter rbyixbjeu47/31/2025 11:30 AM EDT Office Visit [facility] [address] [facility] [address] [place] [address] Terence Blum MD [address] [facility] [address] [place] [address] [facility] AssociatesStart: 03-19-2025 End: 54-50-9077Vyipwlg encounter procedureNOMS ENT NORWALKStart: 03-17-2025 Diabetes mellitus screeningDiabetes ScreeningMercy Health West Hospital Start: 03-14-2025 End: 16-00-2291Ijzggfunj culture and sensitivityFayette County Memorial Hospital SystemComment on above:Expected: 03/14/2025, Expires: 03/14/2026Start: 50-23-3392Rmifn culture [facility] Centertart: 30-09-4886Cwgtinls identified in Urine by CultureUrine CultureUniversity Hospitals Samaritan Medical Centertart: 57-11-3497Vsyfj cultureUniversity Hospitals Samaritan Medical Centertart: 73-31-7223Cquixkmq identified in Urine by CultureUrine [facility] Brent[facility] Hospitaltart: 03-02-2025 End: 34-29-9345IefnabchkUniversity Hospitals Samaritan Medical Centertart: 04-94-2273Uqhidet Culture Aerobic [facility] Hospitaltart: 63-44-6661Kyplgyjli CultureAnaeroc [facility] Hospitaltart: 03-02-2025 Anaerobic microbial cultureAnaeroFulton County Health Center Start: 43-04-8463Ugjdrlirhiz observation [Identifier] in Unspecified specimen by Gram stainUniversity Hospitals Samaritan Medical Centertart: 86-57-5289Rvvht culture [facility] Centertart: 86-53-4938Wblzdcii identified in Urine by CultureUrine [facility] Hospitaltart: 02-21-2025 End: 93-19-3669kwvefkaoziHxdxtsjfmz/OncologyComment on above:3 mo F/U-IVIGStart: 02-21-2025 End: 52-41-9438Pffhkhl encounter fvielpznf65/01/2025 8:45 AM EDT Office Visit [facility] [address] [place] [address] 3 mo F/U-IVIGNortMunising Memorial [facility] Comment on above:3 mo F/U-IVIGStart: 02-14-2025 End: 46-02-8158Kohdxnh encounter smnmalniu30/24/2025 3:20 PM EDT Office Visit [facility] [address] [place] [id number] Bernabe English MD [address] [place] [address] ArrivedNOMS Seo DermatologyComment on above:ArrivedStart: 02-08-2025 End: 14-15-9542ivhwikearl06/18/2025 2:00 PM EDT Infusion Center Hematology/Oncology [address] [place] [place] [address] BENLYSTA -Hematology/OncologyComment on above:BENLYSTA -Start: 22-13-1950ZmhhobsxsUniversity Hospitals Samaritan Medical Centertart: 01-24-2025 End: 08-35-8762tzfgmhhwryJsgjhilykj/OncologyComment on above:IVIG q4 weeks IVIG(5hours) q4 weeksStart: 53-06-0061SWRUL-19 VACCINE ( season) COVID-19 VACCINE ( season)[facility] Centertart: 01-22-2025 Influenza vaccinationPemiscot Memorial Health SystemsStart: 01-06-2025 End: 372901-evnyuorwbzecsc D3 [Mass/volume] in Serum or PlasmaVITAMIN D 25 HYDROXY Lab Routine Vitamin D deficiency Expected: 01/06/2025 (Approximate), Expires: 10/06/2025leveland ClinicComment on above:Expected: 01/06/2025 (Approximate), Expires: 10/06/2025Start: 01-06-2025 End: 02-17-1992GTBSA TB SCREENBLOOD TB SCREEN Lab Routine Screening-pulmonary TB Expected: 01/06/2025 (Approximate), Expires: 10/06/2025leveland ClinicComment on above:Expected: 01/06/2025 (Approximate), Expires: 10/06/2025Start: 01-06-2025 End: 10-06-2025 reactive protein [Mass/volume] in Serum or PlasmaC-REACTIVE PROTEIN Lab Routine Elevated sed rate Elevated C-reactive protein (CRP) Expected: 01/06/2025 (Approximate), Expires: 10/06/2025[facility] ClinicComment on above:Expected: 01/06/2025 (Approximate), Expires: 10/06/2025Start: 01-06-2025 End: 32-07-5817LZF panel - Blood by Automated countCOMPLETE BLOOD COUNT Lab Routine Anemia of chronic disease Expected: 01/06/2025 (Approximate), Expires: 10/06/2025[facility] ClinicComment on above:Expected: 01/06/2025 (Approximate), Expires: 10/06/2025Start: 01-06-2025 End: 50-61-5280Zjcsilf hepatitis differentiation between hepatitis B and C virus panel - Serum or PlasmaHEP REMOTE PANEL BL Lab Routine Elevated LFTs Expected: 01/06/2025 (Approximate), Expires: 10/06/2025[facility] ClinicComment on above: Expected: 01/06/2025 (Approximate), Expires: 10/06/2025Start: 01-06-2025 End: 09-83-6022Rzoyfteyi (Vitamin B12) [Mass/volume] in Serum or PlasmaVITAMIN B12 Lab Routine Vitamin B12 deficiency Expected: 01/06/2025 (Approximate), Expires: 10/06/2025[facility] ClinicComment on above:Expected: 01/06/2025 (Approximate), Expires: 10/06/2025Start: 01-06-2025 End: 98-14-6167Ncsiltkdajqce metabolic 2000 panel - Serum or PlasmaCOMPREHENSIVE METABOLIC PANEL Lab Routine Elevated LFTs Expected: 01/06/2025 (Approximate), Expires: 10/06/2025[facility] Work Phone: Comment on above:Expected: 01/06/2025 (Approximate), Expires: 10/06/2025Start: 01-06-2025 End: 55-45-7792Wvudqyiibyj sedimentation rateSEDIMENTATION RATE, WESTERGREN Lab Routine Elevated sed rate Elevated C-reactive protein (CRP) Expected: 01/06/2025 (Approximate), Expires: 10/06/2025[facility] ClinicComment on above:Expected: 01/06/2025 (Approximate), Expires: 10/06/2025Start: 12-27-2024 End: 22-53-1614pcjpeipkyy24/06/2025 9:00 AM EDT Infusion Center Hematology/Oncology [address] [place] [address] [place] [address] IVIG q4 weeksHematology/OncologyComment on above:IVIG q4 weeksStart: 12-14-2024 End: 15-19-2261rnahmjdmff34/24/2025 2:00 PM EDT Infusion Center Hematology/Oncology [address] [place] [address] [place] [address] BENLYSTA -Hematology/OncologyComment on above:BENLYSTA -Start: 11-29-2024 End: 15-65-2121pepmnaqzoeZaxndqyhdj/OncologyComment on above:3 mo F/U-IVIG(slow infusion per pt request/B12 +/-IV iron labStart: 11-29-2024 End: 40-89-6446Jqmgcph encounter pkivmoxxx40/09/2025 8:45 AM EDT Office Visit [facility] [address] [place], [place] [address] [address] 3 mo F/U-IVIG(slow infusion per pt request/B12 +/-IV iron lab [facility] LaboratoryComment on above:3 mo F/U- IVIG(slow infusion per pt request/B12 +/-IV iron labStart: 11-20-2024 End: 54-88-5040VNL W Auto Differential panel - BloodCOMPLETE BLOOD COUNT AND DIFFERENTIAL Lab Routine Hypogammaglobulinemia (HCC) Expected: 11/20/2024, Expires: 02/19/2025[facility] Work Phone: Comment on above:Expected: 11/20/2024, Expires: 02/19/2025Start: 11-20-2024 End: 17-07-3916Vsvuxkpij (Vitamin B12) [Mass/volume] in Serum or PlasmaVITAMIN B12 Lab Routine Hypogammaglobulinemia (HCC) Expected: 11/20/2024, Expires: 02/19/2025[facility] ClinicComment on above:Expected: 11/20/2024, Expires: 02/19/2025Start: 11-20-2024 End: 73-11-4834Uqvksvkufcaif metabolic 2000 panel - Serum or PlasmaCOMPREHENSIVE METABOLIC PANEL Lab Routine Hypogammaglobulinemia (HCC) Expected: 11/20/2024, Expires: 02/19/2025[facility] ClinicComment on above:Expected: 11/20/2024, Expires: 02/19/2025Start: 11-20-2024 End: 66-54-6332Fsxiwvom [Mass/volume] in Serum or PlasmaFERRITIN Lab Routine Hypogammaglobulinemia (HCC) Expected: 11/20/2024, Expires: 02/19/2025[facility] ClinicComment on above:Expected: 11/20/2024, Expires: 02/19/2025Start: 11-20-2024 End: 75-09-8037Vyzdit [Mass/volume] in Serum or PlasmaFOLATE, SERUM Lab Routine Hypogammaglobulinemia (HCC) Expected: 11/20/2024, Expires: 02/19/2025[facility] ClinicComment on above:Expected: 11/20/2024, Expires: 02/19/2025Start: 11-20-2024 End: 05-18-0468OAGDAMPAKJHTHKO,IGG,IGA,IGMIMMUNOGLOBULINS,IGG,IGA,IGM Lab Routine Hypogammaglobulinemia (HCC) Expected: 11/20/2024, Expires: 02/19/2025 [facility] CenterComment [facility]:Expected: 11/20/2024, Expires: 02/19/2025Start: 11-04-5617Gdvdqlmxc vaccinationInfluenza Vaccine (#1)NOMS HealthcareComment on above:Postponed from 01/23/2024 (Patient Refused)Start: 11-20-2024 End: 07-43-9634Tobw and Iron binding capacity panel - Serum or PlasmaIRON AND TIBC Lab Routine Hypogammaglobulinemia (HCC) Expected: 11/20/2024, Expires: 02/19/2025[facility] ClinicComment on above:Expected: 11/20/2024, Expires: 02/19/2025Start: 11-16-2024 End: 38-36-6719qzmelzkvyt60/26/2025 2:00 PM EDT Infusion Center Hematology/Oncology [address] [place] [address] BENLYSTA -Hematology/OncologyComment on above:BENLYSTA -Start: 11-01-2024 End: 78-95-3058qwnnxhqzfk55/11/2025 9:00 AM EDT Infusion Center Hematology/Oncology [address] [place] [address] [place] [address] IVIG q 4 weeks with B 12 inj and labHematology/OncologyComment on above:IVIG q 4 weeks with B 12 inj and labStart: 10-31-2024 End: 74-64-6146hqdtnvgyzv00/10/2025 9:00 AM EDT Infusion Center Hematology/Oncology [address] [place] [address] [place] [address] IVIG q 4 weeks with B 12 inj and labHematology/OncologyComment on above:IVIG q 4 weeks with B 12 inj and labStart: 10-19-2024 End: 11-00-7297gkqmiturse65/29/2025 2:00 PM EDT Infusion Center Hematology/Oncology [address] [place] [address] [place] [address] BENLYSTA - IVIG AND BENLYSTA AT LEAST 1 DAY APART FOR FUTURE APPTSHematology/Oncology Comment on above:BENLYSTA - IVIG AND BENLYSTA AT LEAST 1 DAY APART FOR FUTURE APPTSStart: 10-18-2024 End: 50-35-9532Edwogvtbk Dkrynftg29/28/2025 10:00 AM EDT Specialty Pharmacy [facility] [address] [place], [place] [address]-b-100[place] [address] Pharmacist, [facility] [address] [place] [address] [address] [place], [place] [address] REFILL- Benlysta- PAx 02/11/25- - mult call attemptsCCF Specialty PharmacyComment on above:REFILL- Benlysta- PAx 02/11/25- - mult call attemptsStart: 10-07-2024 End: 01-52-4484Vdnufn-up bjrzpxisf72/17/2025 8:00 AM EDT [facility] Rheumatology [address] [place] [address] Lynne Ni MD [address] [place] [address] follow up visitRheumatologyComment on above:follow up visit Start: 10-06-2024 End: 959508-sdqanrsryfzuyv D3 [Mass/volume] in Serum or PlasmaVITAMIN D 25 HYDROXY Lab Routine Vitamin D deficiency Expected: 10/06/2024 (Approximate), Expires: 07/09/2025[facility] ClinicComment on above:Expected: 10/06/2024 (Approximate), Expires: 07/09/2025Start: 10-06-2024 End: 07-09-2025 reactive protein [Mass/volume] in Serum or PlasmaC-REACTIVE PROTEIN Lab Routine Elevated sed rate Elevated C-reactive protein (CRP) Expected: 10/06/2024 (Approximate), Expires: 07/09/2025[facility] ClinicComment on above:Expected: 10/06/2024 (Approximate), Expires: 07/09/2025Start: 10-06-2024 End: 65-80-9016QST panel - Blood by Automated countCOMPLETE BLOOD COUNT Lab Routine Anemia of chronic disease Expected: 10/06/2024 (Approximate), Expires: 07/09/2025[facility] ClinicComment on above:Expected: 10/06/2024 (Approximate), Expires: 07/09/2025Start: 10-06-2024 End: 29-76-5424Giphiwooecela metabolic 2000 panel - Serum or PlasmaCOMPREHENSIVE METABOLIC PANEL Lab Routine Elevated LFTs Expected: 10/06/2024 (Approximate), Expires: 07/09/2025[facility] Work Phone: Comment on above:Expected: 10/06/2024 (Approximate), Expires: 07/09/2025Start: 10-06-2024 End: 14-02-0484Qqmwzafjbuf sedimentation rateSEDIMENTATION RATE, WESTERGREN Lab Routine Elevated sed rate Elevated C-reactive protein (CRP) Expected: 10/06/2024 (Approximate), Expires: 07/09/2025[facility] ClinicComment on above:Expected: 10/06/2024 (Approximate), Expires: 07/09/2025Start: 2024 End: 53-10-5529uwwgbwgzuhCjgjvxjnfv/OncologyComment on above:IVIG q 4 weeks with B 12 inj and labBENLYSTA - IVIG AND BENLYSTA AT LEAST 1 DAY APART FOR FUTURE APPTSREFILL- Benlysta- PAx 02/11/25- - LVM 09/20, 09/25, 09/27Start: 10-02-2024 End: 89-96-6765hrgxlebznm26/12/2025 9:00 AM EDT Infusion Center Hematology/Oncology [address] [place] [address] [address] [place] [id number] IVIG q 4 weeks with B 12 inj and labHematology/OncologyComment on above:IVIG q 4 weeks with B 12 inj and labStart: 09-28-2024 End: 99-29-0240Aiqtikbqz Ldwhlsne03/08/2025 10:00 AM EDT Specialty Pharmacy [facility] [address] [place], [place] [id number] Pharmacist, [facility] [address] [place] [address] [address] [place] [address] 22 REFILL- Benlysta- PAx 02/11/25- - LVM 09/20, 5CCF Specialty PharmacyComment on above:REFILL- Benlysta- PAx 02/11/25- - LVM 09/20, tart: 09-25-2024 End: 64-67-1731Pcjxppmyh Ewzbfznk72/05/2025 10:15 AM EDT Specialty Pharmacy [facility] [address] [place] [address] Pharmacist, [facility] [address] [place] [address] DR [place], [facility] 22 REFILL- Benlysta- PAx 02/11/25- - LVM 09/20CCF Specialty PharmacyComment on above:REFILL- Benlysta- PAx 02/11/25- - LVM tart: 09-20-2024 End: 26-43-2474Lvysrxhgm Dmbtaivh75/30/2025 10:15 AM EDT Specialty Pharmacy [facility] [address] [place], [place] [address] [address] Pharmacist, [facility] [address] [place] [address] [address] [place] [address] 22 REFILL- Benlysta- PAx 02/11/25- - pend new RxCC Specialty PharmacyComment on above:REFILL- Benlysta- PAx 02/11/25 - pend new RxStart: 09-19-2024 End: 75-21-3586Mcvbhiq encounter procedureGMIT MAIN WALKERComment on above:hEDS with concerns and wants CTD evaluationStart: 09-18-2024 End: 98-90-1831Bamdovjpj PharmacyCCF Specialty PharmacyComment on above:REFILL- Benlysta- PAx 02/11/25- BENLYSTAStart: 09-06-2024 End: 48-46-3245hgojxolloj43/16/2025 9:30 AM EDT Infusion Center Hematology/Oncology [address] [place] [address] [place] [address] 3 mo F/U-IVIG(slow infusion per pt request/B12 +/-IV ironHematology/OncologyComment on above:3 mo F/U-IVIG(slow infusion per pt request/B12 +/-IV ironStart: 09-06-2024 End: 79-43-2419Fnoxmx-up encounterHematology/OncologyComment on above:3 month follow up IVIG for hypogammaglobulinemia + n19Arslg: 09-06-2024 End: 44-94-0949Ensgcva encounter eazgpbzqz47/16/2025 8:45 AM EDT Office Visit [facility] [address] [place] [address] 3 month follow up IVIG for hypogammaglobulinemia + o39Txxww [facility] LaboratoryComment on above:3 month follow up IVIG for hypogammaglobulinemia + s14Vzmzn: 09-05-2024 End: 92-45-6948Obmmas-up encounterHematology/OncologyComment on above:3 month follow up IVIG for hypogammaglobulinemia + s52Xcwup: 09-05-2024 End: 30-39-3249Gceftgo encounter pxacvnrbs07/15/2025 8:45 AM EDT Office Visit [facility] [address] [place] [address] 3 month follow up IVIG for hypogammaglobulinemia + p46Guehl [facility] LaboratoryComment on above:3 month follow up IVIG for hypogammaglobulinemia + a81Bxmyy: 09-04-2024 End: 45-58-3779Wzkjluw encounter gsmxfpeou18/14/2025 3:20 PM EDT [facility] [address] [facility] [address] [place] [address] Gordo Barfield MD [address] [facility] [address] [place] [address] ArrivedNOMS SELVIN HARTomment on above:ArrivedStart: 08-28-2024 End: 60-89-7552MCV W Auto Differential panel - BloodCOMPLETE BLOOD COUNT AND DIFFERENTIAL Lab Routine Vitamin B12 deficiency Other iron deficiency anemia Hypogammaglobulinemia (HCC) Expected: 08/28/2024, Expires: 11/27/2024[facility] Work Phone: Comment on above:Expected: 08/28/2024, Expires: 11/27/2024Start: 08-28-2024 End: 32-70-4743Sjznmqipy (Vitamin B12) [Mass/volume] in Serum or PlasmaVITAMIN B12 Lab Routine Vitamin B12 deficiency Other iron deficiency anemia Hypogammaglobulinemia (HCC) Expected: 08/28/2024, Expires: 11/27/2024[facility] ClinicComment on above:Expected: 08/28/2024, Expires: 11/27/2024Start: 08-28-2024 End: 09-06-6825Vcqvnaaxidjag metabolic 2000 panel - Serum or PlasmaCOMPREHENSIVE METABOLIC PANEL Lab Routine Vitamin B12 deficiency Other iron deficiency anemia Hypogammaglobulinemia (HCC) Expected: 08/28/2024, Expires: 11/27/2024[facility] ClinicComment on above:Expected: 08/28/2024, Expires: 11/27/2024Start: 08-28-2024 End: 43-38-6851Iuuvmvhp [Mass/volume] in Serum or PlasmaFERRITIN Lab Routine Vitamin B12 deficiency Other iron deficiency anemia Hypogammaglobulinemia (HCC) Expected: 08/28/2024, Expires: 11/27/2024[facility] ClinicComment on above: Expected: 08/28/2024, Expires: 11/27/2024Start: 08-28-2024 End: 68-09-3900Kavtro [Mass/volume] in Serum or PlasmaFOLATE, SERUM Lab Routine Vitamin B12 deficiency Other iron deficiency anemia Hypogammaglobulinemia(HCC) Expected: 08/28/2024, Expires: 11/27/2024[facility] ClinicComment on above: Expected: 08/28/2024, Expires: 11/27/2024Start: 08-28-2024 End: 25-34-1720HtJ [Mass/volume] in Serum or PlasmaIMMUNOGLOBULIN G Lab Routine Vitamin B12 deficiency Other iron deficiency anemia Hypogammaglobulinemia (HCC) Expected: 08/28/2024, Expires: 11/27/2024[facility] ClinicComment on above: Expected: 08/28/2024, Expires: 11/27/2024Start: 08-28-2024 End: 66-87-2571Lpik and Iron binding capacity panel - Serum or PlasmaIRON AND TIBC Lab Routine Vitamin B12 deficiency Other iron deficiency anemia Hypogammaglobulinemia(HCC) Expected: 08/28/2024, Expires: 11/27/2024[facility] ClinicComment on above:Expected: 08/28/2024, Expires: 11/27/2024Start: 08-22-2024 End: 39-66-7144Cdxdyhf encounter jacancbqx40/01/2025 1:30 PM EDT Office Visit [facility] [address] [place] [phone] Raj Kitchen MD [address] [place] [address] [facility] ENDOCRINOLOGYStart: 08-22-2024 End: 24-61-0087Qjbgrcehg Unocslzm73/01/2025 10:15 AM EDT Specialty Pharmacy [facility] [address] [place] [address] Pharmacist, [facility] [address] [place] [address] [address] [place] [address] 22 REFILL- Benlysta- PAx 02/11/25 lv 08/17CC Specialty PharmacyComment on above:REFILL- Benlysta- PAx 02/11/25 lvm 08/17Start: 08-17-2024 End: 33-02-8801Eatcfljav Qomkqjcx08/27/2025 10:00 AM EDT Specialty Pharmacy [facility] [address] [place] [address] Pharmacist, [facility] [address] [place] [address] [address] [place], [place] [address] REFILL- Benlysta- PAx 02/11/25- CC Specialty PharmacyComment on above:REFILL- Benlysta- PAx 02/11/25- Start: 08-15-2024 End: 59-54-0579Yuqsqel encounter mqvgwkenm50/25/2025 10:20 AM EDT Office Visit [facility] [address] [place] [address] Gordo Barfield MD [address] [place] [address] [facility] CI ENTStart: 08-08-2024 End: 43-29-3711rtahshvgol26/18/2025 9:30 AM EDT Infusion Center Hematology/Oncology [address] [place] [address] [place] [address] IVIG for hypogammaglobulinemia + g94Xfajtbbyia/OncologyComment on above:IVIG for hypogammaglobulinemia + r46Ghnjg: 08-01-2024 End: 05-23-5441Iqoavbg encounter ysecevpiy13/11/2025 10:30 AM EDT Office Visit [facility] [address] [place] [address] Bernabe English MD [address] [place] [address] [facility] SWS DERMStart: 07-25-2024 End: 68-92-6103Tbzeobour PharmacyCCF Specialty PharmacyComment on above:REFILL- Benlysta- PAx 02/11/25- daysArrivedStart: 07-20-2024 End: 79-84-8920ncqvzlzzak16/27/2025 11:30 AM EST [facility] Infectious Disease [address] [place] [phone] Alhaji Victoria DO [address] [place] [address] Positive blood cultures [R78.81]Infectious DiseaseComment on above:Positive blood cultures [R78.81]Start: 07-20-2024 End: 16-54-6596Zvrqeal encounter /27/2025 11:30 AM EST Office Visit Infectious Disease [address] [place] [phone] Alhaji Victoria DO [address] [place] [address] Positive blood cultures [R78.81]Infectious DiseaseComment on above: Positive blood cultures [R78.81]Start: 21-18-4714CsnpannwzUniversity Hospitals Samaritan Medical Centertart: 07-13-2024 End: 51-65-2549Uahhjxc encounter umdrugbvt54/20/2025 9:20 AM EST Office Visit [place] [address] [place] [phone] Lois Holm MD [address] [facility] [address] [place] [address] [facility]Start: 07-12-2024 End: 96-29-3946Rnlytjf encounter jokatvxyd19/19/2025 2:40 PM EST Office Visit Otolaryngology [address] [place] [address] Marky Gasca PA-C [address] [place], [place] [id number] RecurrentThrush.OtolaryngologyComment on above:Recurrent Thrush.Start: 07-11-2024 End: 03-74-6014kcznpkhgso09/18/2025 9:30 AM EST Infusion Center Hematology/Oncology [address] [place] [address] IVIG for hypogammaglobulinemia + e28Rqwoazonel/OncologyComment on above:IVIG for hypogammaglobulinemia + s16Hqnkl: 07-03-2024 End: 916564-doaaycuwrilrbt D3 [Mass/volume] in Serum or PlasmaVITAMIN D 25 HYDROXY Lab Routine Vitamin D deficiency Expected: 07/03/2024 (Approximate), Expires: 04/02/2025[facility] ClinicComment on above:Expected: 07/03/2024 (Approximate), Expires: 04/02/2025Start: 07-03-2024 End: 04-02-2025 reactive protein [Mass/volume] in Serum or PlasmaC-REACTIVE PROTEIN Lab Routine Elevated sed rate Elevated C-reactive protein (CRP) Expected: 07/03/2024 (Approximate), Expires: 04/02/2025[facility] ClinicComment on above:Expected: 07/03/2024 (Approximate), Expires: 04/02/2025Start: 07-03-2024 End: 45-98-1382LXG panel - Blood by Automated countCOMPLETE BLOOD COUNT Lab Routine Anemia of chronic disease Expected: 07/03/2024 (Approximate), Expires: 04/02/2025[facility] ClinicComment on above:Expected: 07/03/2024 (Approximate), Expires: 04/02/2025Start: 07-03-2024 End: 21-90-8856Xxxvjkondjqvv metabolic 2000 panel - Serum or PlasmaCOMPREHENSIVE METABOLIC PANEL Lab Routine Elevated LFTs Expected: 07/03/2024 (Approximate), Expires: 04/02/2025[facility] Work Phone: Comment on above:Expected: 07/03/2024 (Approximate), Expires: 04/02/2025Start: 07-03-2024 End: 05-89-0308Vuykhmanxea sedimentation rateSEDIMENTATION RATE, WESTERGREN Lab Routine Elevated sed rate Elevated C-reactive protein (CRP) Expected: 07/03/2024 (Approximate), Expires: 04/02/2025[facility] ClinicComment on above:Expected: 07/03/2024 (Approximate), Expires: 04/02/2025Start: 06-29-2024 End: 39-84-6341Blwqqmjio Wfoyuvgn75/06/2025 10:00 AM EST Specialty Pharmacy [facility] [address] [place] [address] Pharmacist, Specialty[facility] [address] [place] [address] [place], [place] [address] REFILL- Benlysta- PAx 02/11/25- CC Specialty PharmacyComment on above:REFILL- Benlysta- PAx 02/11/25Start: 06-26-2024 End: 65-59-4037Pyqyiln evaluation of patient and nerlrc7306/26/2024 9:45 AM EST Nurse Visit Hematology/Oncology [address] [place] [address] Hoda Marshall Nurse Sawyer [address] [place] [address] L91Shmbaypaoy/OncologyComment on above:G19Oaini: 06-26-2024 End: 56-88-8201vhuhuirbqsCbssymehql/OncologyComment on above:RTC 3 monthIVIG for hypogammaglobulinemiaStart: 06-26-2024 End: 11-60-9074Ndjcdjc encounter bovmrmvtp63/03/2025 8:45 AM EST Office Visit [facility] [address] [facility] [place] [place] [address] labsNoTeays Valley Cancer Center LaboratoryComment on above:labsStart: 06-14-2024 End: 06-80-3562Vlnvvao evaluation of patient and reportMaple Lake Gastroenterology and Endoscopy CenterComment on above:Abdominal Pain/Diarrhea/Bandar S CLINICAL RESEARCH SPEC ordered/Patient has prep thru MyChart//ccSIBO - Abdominal Pain/Diarrhea/Bandar S CLINICAL RESEARCH SPEC ordered/Patient has prep thru MyChart//cc Order in Scanned DocumentsStart: 06-13-2024 End: 98-76-4028Schxonpnm (Vitamin B12) [Mass/volume] in Serum or PlasmaCleveland ClinicComment on above:Expected: 06/13/2024, Expires: 09/12/2024Start: 06-13-2024 End: 58-23-3774Zubggnnx [Mass/volume] in Serum or PlasmaCleveland Clinic Foundation Work Phone: Comment on above:Expected: 06/13/2024, Expires: 09/12/2024Start: 06-13-2024 End: 45-27-5222Isnhdz [Mass/volume] in Serum or PlasmaCleveland ClinicComment on above:Expected: 06/13/2024, Expires: 09/12/2024Start: 06-13-2024 End: 13-39-5574Swit and Iron binding capacity panel - Serum or PlasmaCleveland ClinicComment on above:Expected: 06/13/2024, Expires: 09/12/2024Start: 06-13-2024 End: 31-63-5015Cnviqyp evaluation of patient and ryokrw7306/13/2024 9:45 AM EST Nurse Visit Hematology/Oncology [address] [place] [address] Hoda Marshall Nurse Sawyer [address] [place] [address] O53Bskrequpss/OncologyComment on above:I68Uctfn: 06-13-2024 End: 68-14-7826cuvfyhshldJwcutqhskf/OncologyComment on above:RTC 3 monthIVIG for hypogammaglobulinemiaStart: 06-13-2024 End: 63-86-5191Alrdvmy encounter ifyzjkijd71/21/2025 8:45 AM EST Office Visit [facility] [address] [place] [address] labsNortMunising Memorial Hospital LaboratoryComment on above:labsStart: 06-06-2024 End: 10-21-1296ZU Breast - bilateral ScreeningBilateral screening mammogram Imaging Routine Breast cancer screening by mammogram Expected: 06/06/2024 (Approximate), Expires: 08/04/2025[facility] Work Phone: Comment on above:Expected: 06/06/2024 (Approximate), Expires: 08/04/2025Start: 06-06-2024 End: 19-32-1595PA Breast - left DiagnosticLeft diagnostic mammogram Imaging Routine Breast nodule Expected: 06/06/2024 (Approximate), Expires: 08/04/2025 [facility] HealthcareComment on above:Expected: 06/06/2024 (Approximate), Expires: 08/04/2025Start: 06-06-2024 End: 91-04-2726Yebymow encounter procedureNOMS BCP OBComment on above:REFILL- Benlysta- PAx 02/11/25Start: 05-29-2024 End: 98-43-9460Diuawkq evaluation of patient and ghnlta5705/29/2024 9:30 AM EST Nurse Visit Hematology/Oncology [address] [place] [address] Hoda Marshall Nurse Sawyer [address] [place] [address] O44Mmepzcdaoh/OncologyComment on above:Q96Emwzf: 12-27-2024 End: 16-43-6590orsonjycjb00/27/2024 9:30 AM EST Infusion Center Hematology/Oncology [address] [place] [address] IVIG for hypogammaglobulinemiaHematology/OncologyComment on above:IVIG for hypogammaglobulinemiaStart: 05-12-2024 End: 59-99-0560Yogurebff Sumveruv23/20/2024 10:00 AM EST Specialty Pharmacy [facility] [address] [place] [address] Drive [id number], [place] [address] Pharmacist, [facility] [address] [place] [address] [address] [place] [address] REFILL- Benlysta- PAx 02/11/25CC Specialty PharmacyComment on above:REFILL- Benlysta- PAx 02/11/25Start: 04-28-2024 End: 34-07-4634YE.doppler Extremity arteries - bilateral for physiologic artery studyVas art doppler lwr bilat mult lev/PVR Vascular Ultrasound Routine Peripheral vascular disease, unspecified (CMS-HCC) Cold extremities Systemic lupus erythematosus (CMS-HCC) Expected: 04/28/2024, Expires: 04/28/2025[facility] Work Phone: Comment on above:Expected: 04/28/2024, Expires: 04/28/2025Start: 04-24-2024 End: 62-02-9617Mtbtyhx evaluation of patient and iwpctq7504/24/2024 9:30 AM EST Nurse Visit Hematology/Oncology [address] [place] [address] Hoda Marshall Nurse Sawyer [address] [place] [address] R66Pahdmxpjna/OncologyComment on above:G07Voajq: 04-18-2024 End: 63-57-1895Ulyiywm evaluation of patient and reportMaple Lake Gastroenterology and Endoscopy CenterComment on above:referSiboStart: 04-14-2024 End: 28-72-4141baosfyotibUrwkqsfvbi/OncologyComment on above:IVIG for hypogammaglobulinemiaREFILL- Benlysta- PAx 02/11/25- Start: 04-11-2024 End: 40-31-8094Guupuj[place] PharmacyCCF Specialty PharmacyComment on above:REFILL- Benlysta- PAx 02/11/25- [facility] 09/2024- REFILL- Benlysta- PAx 02/11/25- Start: 04-06-2024 End: 15-22-9179IP.doppler Extremity arteries - bilateral for physiologic artery studyVas art doppler lwr bilat mult lev/PVR Vascular Ultrasound Routine Cold extremities Pain of lower extremity, unspecified laterality Systemic lupus erythematosus (CMS-HCC) Expected: 04/06/2024, Expires: 2025[facility] Work Phone: Comment on above:Expected: 04/06/2024, Expires: 2025Start: 03-28-2024 End: 87-61-9294aokentuvfx80/05/2024 1:00 PM [facility] Hematology/Oncology [address] [place] [address] [place] [address] Vera Najera MD [address] [place] [address] [place] [address] 13 wk virtual after labs last weekHematology/OncologyComment on above:13 wk virtual after labs last weekStart: 03-23-2024 End: 86-39-0363dFLH in Blood by Coagulation assayAPTT Lab Routine Menorrhagia with regular cycle Expected: 03/23/2024 (Approximate), Expires: 03/23/2025[facility] HealthcareComment on above:Expected: 03/23/2024 (Approximate), Expires: 03/23/2025Start: 03-23-2024 End: 23-07-8960FW for pregnancyUS PELVIS-TRANSVAG IF INDICATED Imaging Routine Menorrhagia with regular cycle Expected: 03/23/2024(Approximate), Expires: 03/23/2025[facility] HealthcareComment on above:Expected: 03/23/2024 (Approximate), Expires: 03/23/2025Start: 03-21-2024 End: 70-70-4187Fnmdqwg evaluation of patient and xbyhss3703/21/2024 11:45 AM EDT Nurse Visit Hematology/Oncology [address] [place] [address] [phone] Hoda Marshall Nurse Sawyer [address] [place] [address] e54Feceortyyp/OncologyComment on above:n66Hllbp: 03-21-2024 End: 14-26-2077Gtbavjl encounter ivdmlyziu99/29/2024 11:15 AM EDT Office Visit [facility] Laboratory [address] [place] [address] LAbNortMunising [facility] Hospital LaboratoryComment on above:LAbStart: 03-20-2024 End: 863115-xhacgqywrqxoqp D3 [Mass/volume] in Serum or PlasmaVITAMIN D 25 HYDROXY Lab Routine Vitamin D deficiency Expected: 03/20/2024 (Approximate), Expires: 12/29/2024[facility] ClinicComment on above:Expected: 03/20/2024 (Approximate), Expires: 12/29/2024Start: 03-20-2024 End: 94-91-3915JCWRN TB SCREENBLOOD TB SCREEN Lab Routine Screening-pulmonary TB Expected: 03/20/2024 (Approximate), Expires: 12/29/2024[facility] ClinicComment on above:Expected: 03/20/2024 (Approximate), Expires: 12/29/2024Start: 03-20-2024 End: 12-29-2024 reactive protein [Mass/volume] in Serum or PlasmaC-REACTIVE PROTEIN Lab Routine Elevated C-reactive protein (CRP) Elevated sed rate Expected: 03/20/2024 (Approximate), Expires: 12/29/2024[facility] ClinicComment on above:Expected: 03/20/2024 (Approximate), Expires: 12/29/2024Start: 03-20-2024 End: 44-68-5111XWL W Auto Differential panel - BloodCOMPLETE BLOOD COUNT AND DIFFERENTIAL Lab Routine Megaloblastic anemia due to vitamin B12 deficiency Elevated sed rate Obstructive sleep apnea syndrome Expected: 03/20/2024 (Approximate), Expires: 06/19/2024[facility]:Expected: 03/20/2024 (Approximate), Expires: 06/19/2024Start: 03-20-2024 End: 45-50-5574Lcxfpgcsc (Vitamin B12) [Mass/volume] in Serum or PlasmaVITAMIN B12 Lab Routine Megaloblastic anemia due to vitamin B12 deficiency Elevated sed rate Obstructive sleep apnea syndrome Expected: 03/20/2024 (Approximate), Expires: 06/19/2024[facility] CenterComment on above:Expected: 03/20/2024 (Approximate), Expires: 06/19/2024Start: 03-20-2024 End: 79-96-2496Duuyhpgpztmno metabolic 2000 panel - Serum or PlasmaCOMPREHENSIVE METABOLIC PANEL Lab Routine Megaloblastic anemia due to vitamin B12 deficiency Elevated sed rate Obstructive sleep apnea syndrome Expected: 03/20/2024 (Approximate), Expires: 06/19/2024[facility] Work Phone: Comment on above:Expected: 03/20/2024 (Approximate), Expires: 06/19/2024Start: 03-20-2024 End: 16-23-3009Xyowrpqhgir sedimentation rateSEDIMENTATION RATE, WESTERGREN Lab Routine Elevated C-reactive protein (CRP) Elevated sed rate Expected: 03/20/2024 (Approximate), Expires: 12/29/2024[facility] Work Phone: Comment on above:Expected: 03/20/2024 (Approximate), Expires: 12/29/2024Start: 03-20-2024 End: 40-54-7147Ldielzwk [Mass/volume] in Serum or PlasmaFERRITIN Lab Routine Megaloblastic anemia due to vitamin B12 deficiency Elevated sed rate Obstructive sleep apnea syndrome Expected: 03/20/2024 (Approximate), Expires: 06/19/2024 [facility]:Expected: 03/20/2024 (Approximate), Expires: 06/19/2024Start: 03-20-2024 End: 75-76-3791Ucazhs [Mass/volume] in Serum or PlasmaFOLATE, SERUM Lab Routine Megaloblastic anemia due to vitamin B12 deficiency Elevated sed rate Obstructive sleep apnea syndrome Expected: 03/20/2024 (Approximate), Expires: 06/19/2024 [facility] CenterComment [facility]:Expected: 03/20/2024 (Approximate), Expires: 06/19/2024Start: 03-20-2024 End: 32-47-8577XKJVPCSLEQPKFLQ,IGG,IGA,IGMIMMUNOGLOBULINS,IGG,IGA,IGM Lab Routine Megaloblastic anemia due to vitamin B12 deficiency Elevatedsed rate Obstructive sleep apnea syndrome Expected: 03/20/2024 (Approximate), Expires: 06/19/2024[facility] ClinicComment on above:Expected: 03/20/2024 (Approximate), Expires: 06/19/2024Start: 03-20-2024 End: 81-20-9564Otjm and Iron binding capacity panel - Serum or PlasmaIRON AND TIBC Lab Routine Megaloblastic anemia due to vitamin B12 deficiency Elevated sed rate Obstructive sleep apnea syndrome Expected: 03/20/2024 (Approximate), Expires: 06/19/2024[facility] ClinicComment on above:Expected: 03/20/2024 (Approximate), Expires: 06/19/2024Start: 03-18-2024 End: 53-36-0693Wveursn encounter xkottypfp95/26/2024 9:00 AM EDT [facility] Rheumatology [address] [place] [address] yLnne Ni MD [address] [place], [place] [id number] May offer 03/18/24 Sat REJ 4th floor in person/virtual/phone for lupusRheumatologyComment on above:May offer 03/18/24 Sat REJ 4th floor in person/virtual/phone for lupusStart: 90-20-2023Gxgxecn referralBet[facility] Work Phone: Start: 03-16-2024 End: 72-78-1373EN Breast - bilateralBilateral breast US complete Imaging Routine Nipple discharge Expected: 03/16/2024, Expires: 05/16/2025[facility] Work Phone: comment on above:Expected: 03/16/2024, Expires: 05/16/2025Start: 03-16-2024 End: 87-12-8251Eenvtvclz [facility]acyTH[facility] Specialty PharmacyComment on above:REFILL- Benlysta- PAx 02/11/25- NCA 09/2024-l/m 03/13ArrivedStart: 03-13-2024 End: 40-37-8537Ilnomxmba PharmacyTH[facility] Specialty PharmacyComment on above:REFILL- Benlysta- PAx 02/04/24- NCA 09/2024-, ND 02/23-renewal sub 02/13REFILL- Benlysta- PAx 02/11/25- NCA 09/2024-,Start: 02-22-2024 End: 56-64-6919Opzwxso evaluation of patient and qmsicc5002/22/2024 11:45 AM EDT Nurse Visit Hematology/Oncology [address] [place] [address] Hoda Marshall Nurse Sawyer [address] [facility] [place] [address] p13Rvxkpaihji/OncologyComment on above:k69Yvtyb: 02-22-2024 End: 24-40-1918Oglwjas encounter ztpxfskze05/01/2024 11:15 AM EDT Office Visit [facility] Laboratory [address] [facility] [place] [address] LAbNortMunising Memorial Hospital LaboratoryComment on above:LAbStart: 02-21-2024 End: 00-35-8929Kgbzysw evaluation of patient and cowbob4202/21/2024 10:45 AM EDT Nurse Visit Hematology/Oncology [address] [place] [address] [phone] Hoda Marshall Nurse Sawyer [address] [place] [address] n77Wzofazqmdu/OncologyComment on above:r53Ylfxw: 02-21-2024 End: 23-91-2377Lpgzusa encounter cooynijdc38/30/2024 10:30 AM EDT Office Visit [facility] Laboratory [address] [place] [address] LAbNoTeays Valley [facility] Center LaboratoryComment on above:LAbStart: 97-93-0070XwwyaczkgUniversity Hospitals Samaritan Medical Centertart: 02-14-2024 End: 51-71-0808Ouvwrm-up encounterNeurologyComment on above:Cpap follow up REFILL- Benlysta- PAx 02/04/24- NCA 09/2024-, ND 02/23Start: 02-09-2024 End: 75-07-2136Fcynlvj encounter yxtjmjwgk01/18/2024 8:00 AM EDT Office Visit [facility] [address] [facility] [address] CHERY [address] [place] [address], [place] [phone] Zita Cuellar, LOBSTERMAN [address] [facility] [address] Chery [address] [place] [address] [phone] (Work) [facility] NEURO 210Start: 01-27-2024 End: 57-61-6259Pglskycj identified in Blood by CultureBLOOD CULTURE Microbiology Routine Pseudomonas infection Expected: 01/27/2024, Expires: 04/27/2024 [facility] Work Phone: comment on above:Expected: 01/27/2024, Expires: 04/27/2024Start: 01-27-2024 End: 98-47-1671Zlrlnl-up iuchugevh71/05/2024 10:00 AM EDT [facility] Infectious Disease [address] [place] [address] Alhaji Victoria DO [facility] [address] [place] [address] follow upInfectious DiseaseComment on above:follow up Start: 01-25-2024 End: 77-73-4121Hkdugdx evaluation of patient and reportHematology/Oncology Comment on above:b12B12(change date)Start: 01-25-2024 End: 58-77-5718Uijdftv encounter procedureNortMunising Memorial Hospital LaboratoryComment on above:LAbNO LAB ORDERS LAbStart: 25-80-6369Xdeunoixx vaccinationInfluenza Vaccine (#1)[facility] HealthcareComment on above:Postponed from 01/22/2023 (Patient Refused)Start: 97-42-1796Qozra-19 Vaccine ( season)Covid-19 Vaccine ()[facility] 01-23-2024 Covid-19 Vaccine ()Covid-19 Vaccine () [facility]: 64-28-3734Qgfxxivan vaccinationAccess Hospital Daytontart: 01-20-2024 End: 23-23-0761Lzrqzxaye PharmacyCCF Specialty PharmacyComment on above:refill - benlysta- NCA 09/2024-- pa exp: 02/04/24-pseudomonas oryzihabitans in my breastStart: 12-27-2023 End: 82-28-4670Dzgtxch evaluation of patient and sybpev6112/27/2023 12:00 PM EDT Nurse Visit Hematology/Oncology [address] [place] [address] Hoda Marshall Nurse Sawyer [address] [place] [address] l49Sudvektjuf/OncologyComment on above:a41Yoerw: 12-27-2023 End: 52-35-7065Chgieu-up uqyxicgct66/05/2024 11:30 AM EDT Visit (SP) Office Hematology/Oncology [address] [place] [address] Neda Hill PA-C [address] [place] [address] 13 week follow up, labs 1 week beforeHematology/OncologyComment on above:13 week follow up, labs 1 week beforeStart: 12-27-2023 End: 66-18-9564Rwqdxwt encounter legmceekr52/05/2024 11:15 AM EDT Office Visit [facility] Laboratory [address] [place] [address] LAbNortMunising Memorial Hospital LaboratoryComment on above:LAbStart: 12-13-2023 End: 14-35-9417Ufublwruo Vlwyhvff36/22/2024 10:00 AM EDT Specialty Pharmacy [facility] [address] [place] [address] Drive [id number] [address] Pharmacist, [facility] [address] [place] [address] [address] [place], [place] [address] refill - benlysta- NCA - pa exp: 02/04/24-[facility] Specialty PharmacyComment on above:refill - benlysta- NCA - pa exp: 02/04/24-Start: 12-10-2023 End: 92-70-9125Dtthgk-up zzqturjdx78/19/2024 10:45 AM EDT Visit (SP) Office Hematology/Oncology [address] [place] [address] Vera Najera MD [address] [place] [address] 13 week follow up, labs 1 week beforeHematology/Oncology Comment on above:13 week follow up, labs 1 week beforeStart: 12-04-2023 End: 567973-ctidonlfkbwbsy D3 [Mass/volume] in Serum or PlasmaVITAMIN D 25 HYDROXY Lab Routine Vitamin D deficiency Expected: 12/04/2023 (Approximate), Expires: 09/03/2024[facility] Work Phone: Comment on above:Expected: 12/04/2023 (Approximate), Expires: 09/03/2024Start: 12-04-2023 End: 09-03-2024 reactive protein [Mass/volume] in Serum or PlasmaC-REACTIVE PROTEIN Lab Routine Elevated sed rate Elevated C-reactive protein (CRP) Expected: 12/04/2023 (Approximate), Expires: 09/03/2024[facility] Work Phone: Comment on above:Expected: 12/04/2023 (Approximate), Expires: 09/03/2024Start: 12-04-2023 End: 01-00-4502FFJ panel - Blood by Automated countCOMPLETE BLOOD COUNT Lab Routine Anemia of chronic disease Expected: 12/04/2023 (Approximate), Expires: 09/03/2024[facility] Work Phone: Comment on above:Expected: 12/04/2023 (Approximate), Expires: 09/03/2024Start: 12-04-2023 End: 69-44-0119Nujlxeqqclfth metabolic 2000 panel - Serum or PlasmaCOMPREHENSIVE METABOLIC PANEL Lab Routine Elevated LFTs Expected: 12/04/2023 (Approximate), Expires: 09/03/2024[facility] Work Phone: Comment on above:Expected: 12/04/2023 (Approximate), Expires: 09/03/2024Start: 12-04-2023 End: 30-22-2687Kuzdvjzyqlb sedimentation rateSEDIMENTATION RATE, WESTERGREN Lab Routine Elevated sed rate Elevated C-reactive protein (CRP) Expected: 12/04/2023 (Approximate), Expires: 09/03/2024[facility] Work Phone: Comment on above:Expected: 12/04/2023 (Approximate), Expires: 09/03/2024Start: 12-03-2023 End: 09-73-9778Tqgxwxa evaluation of patient and fziuub2912/03/2023 11:00 AM EDT Nurse Visit Hematology/Oncology [address] [place] [address] Hoda Marshall Nurse Sawyer [address] [place] [address] q93Beaebqvgph/OncologyComment on above:n01Bxciv: 12-03-2023 End: 24-39-5720Ywzikbv encounter fngagzwfl22/12/2024 10:45 AM EDT Office Visit [facility] Laboratory [address] [place] [address] [facility] LaboratoryComment on above:labStart: 12-02-2023 End: 55-83-4939QSO W Auto Differential panel - BloodCOMPLETE BLOOD COUNT AND DIFFERENTIAL Lab Routine Megaloblastic anemia due to vitamin B12 deficiency High total serum IgM Expected: 12/02/2023 (Approximate), Expires: 09/08/2024 [facility] Work Phone: Comment on above:Expected: 12/02/2023 (Approximate), Expires: 09/08/2024Start: 12-02-2023 End: 99-40-0632Mrnotnrkq (Vitamin B12) [Mass/volume] in Serum or PlasmaVITAMIN B12 Lab Routine Megaloblastic anemia due to vitamin B12 deficiency High total serum IgM Expected: 12/02/2023 (Approximate), Expires: 09/08/2024[facility] Work Phone: Comment on above:Expected: 12/02/2023 (Approximate), Expires: 09/08/2024Start: 12-02-2023 End: 08-04-8839Jwjfmlhqoxkmh metabolic 2000 panel - Serum or PlasmaCOMPREHENSIVE METABOLIC PANEL Lab Routine Megaloblastic anemia due to vitamin B12 deficiency High total serum IgM Expected: 12/02/2023 (Approximate), Expires: 09/08/2024 [facility] Work Phone: Comment on above:Expected: 12/02/2023 (Approximate), Expires: 09/08/2024Start: 12-02-2023 End: 19-67-7895Jdxrwhtqicl sedimentation rateSEDIMENTATION RATE, WESTERGREN Lab Routine Megaloblastic anemia due to vitamin B12 deficiency High total serum IgM Expected: 12/02/2023 (Approximate), Expires: 03/02/2024[facility] Work Phone: Comment on above:Expected: 12/02/2023 (Approximate), Expires: 03/02/2024Start: 12-02-2023 End: 38-98-2268Yhdxyztr [Mass/volume] in Serum or PlasmaFERRITIN Lab Routine Megaloblastic anemia due to vitamin B12 deficiency High total serum IgM Expecte d: 12/02/2023 (Approximate), Expires: 09/08/2024[facility] Work Phone: Comment on above:Expected: 12/02/2023 (Approximate), Expires: 09/08/2024Start: 12-02-2023 End: 58-45-7045Cfmegx [Mass/volume] in Serum or PlasmaFOLATE, SERUM Lab Routine Megaloblastic anemia due to vitamin B12 deficiency High total serum IgM Ex pected: 12/02/2023 (Approximate), Expires: 09/08/2024[facility] Work Phone: Comment on above:Expected: 12/02/2023 (Approximate), Expires: 09/08/2024Start: 12-02-2023 End: 09-28-9361AwZ [Mass/volume] in Serum or PlasmaIMMUNOGLOBULIN A Lab Routine Megaloblastic anemia due to vitamin B12 deficiency High total serum IgM Expected: 12/02/2023 (Approximate), Expires: 03/02/2024[facility] Work Phone: Comment on above:Expected: 12/02/2023 (Approximate), Expires: 03/02/2024Start: 12-02-2023 End: 41-82-1858HpP [Units/volume] in Serum or PlasmaIMMUNOGLOBULIN E Lab Routine Megaloblastic anemia due to vitamin B12 deficiency High total serum IgM Expected: 12/02/2023 (Approximate), Expires: 03/02/2024[facility] Work Phone: Comment on above:Expected: 12/02/2023 (Approximate), Expires: 03/02/2024Start: 12-02-2023 End: 24-43-7520IeT [Mass/volume] in Serum or PlasmaIMMUNOGLOBULIN G Lab Routine Megaloblastic anemia due to vitamin B12 deficiency High total serum IgM Expected: 12/02/2023 (Approximate), Expires: 03/02/2024[facility] Work Phone: Comment on above:Expected: 12/02/2023 (Approximate), Expires: 03/02/2024Start: 12-02-2023 End: 71-88-3424HrA [Mass/volume] in Serum or PlasmaIMMUNOGLOBULIN M Lab Routine Megaloblastic anemia due to vitamin B12 deficiency High total serum IgM Expected: 12/02/2023 (Approximate), Expires: 03/02/2024[facility] Work Phone: Comment on above:Expected: 12/02/2023 (Approximate), Expires: 03/02/2024Start: 12-02-2023 End: 81-27-6690Yqlo and Iron binding capacity panel - Serum or PlasmaIRON AND TIBC Lab Routine Megaloblastic anemia due to vitamin B12 deficiency High total serum IgM Expected: 12/02/2023 (Approximate), Expires: 09/08/2024[facility] Work Phone: Comment on above:Expected: 12/02/2023 (Approximate), Expires: 09/08/2024Start: 11-29-2023 End: 35-85-8099Rgsteoa evaluation of patient and jyuxvi9811/29/2023 2:15 PM EDT Nurse Visit Hematology/Oncology [address] [place] [address] [phone] Joanna Co Nurse Sawyer [address] [place] [address] v57Dyglyfavjy/OncologyComment on above:x09Dvine: 11-15-2023 End: 82-68-2894Hdbpfmvlg Iehyakfi01/24/2024 10:00 AM EDT Specialty Pharmacy [facility] [address] [place] [address] Drive [id number], [place] [address] Pharmacist, [facility] [address] [place] [address] [address] [place], [place] [address] refill - benlysta- NCA 09/2024-- pa exp: 02/04/24-[facility] Specialty PharmacyComment on above:refill - benlysta- NCA 09/2024-Thursdays- pa exp: 02/04/24-Start: 10-29-2023 End: 89-57-4165Spqetpp evaluation of patient and omuwoh8110/29/2023 11:00 AM EDT Nurse Visit Hematology/Oncology [address] [place] [address] Hoda aMrshall Nurse Sawyer [address] [place] [address] r16Upayldtxgk/OncologyComment on above:t90Iflex: 10-15-2023 End: 47-82-2664Ngpnvvjcb Idhjsbrh02/24/2024 10:00 AM EDT Specialty Pharmacy [facility] [address] [place] [address] Pharmacist, [facility] [address] [place] [address] [address] [place] [address] 22 refill - benlysta-Thursdays- pa exp: 02/04/24-l/m 10/11CC Specialty PharmacyComment on above:refill - benlysta-Thursdays- pa exp: 02/04/24-l/m art: 10-12-2023 End: 15-47-9622Livwzeflz Maatfbps76/21/2024 10:00 AM EDT Specialty Pharmacy [facility] [address] [place] [address] Pharmacist, [facility] [address] [place] [address] [address] [place] [address] 22 refill - benlysta-Thursdays- pa exp: 02/04/24-[facility] Specialty PharmacyComment on above:refill - benlysta-Thursdays- pa exp: 02/04/24-Start: 10-05-2023 End: 23-79-1220Losjwyy encounter pextcnkww76/14/2024 8:00 AM EDT [facility] Rheumatology [address] [place] [address] Lynne Ni MD [address] [facility] [place] [address] 6 mo f/u for LupusRheumatologyComment on above:6 mo f/u for LupusStart: 10-01-2023 End: 79-34-4637Kwbeoeg evaluation of patient and lmwwae4810/01/2023 11:00 AM EDT Nurse Visit Hematology/Oncology [address] [place] [address] Hoda Marshall Nurse Sawyer [address] [place] [address] v01Fvjvqcpsof/OncologyComment on above:y10Aimcu: 09-16-2023 End: 89-19-6298Knhtiremv Hvydrgfa73/25/2024 10:00 AM EDT Specialty Pharmacy [facility] [address] [place] [address] Pharmacist, [facility] [address] [place] [address] refill - benlysta-Thursdays- pa exp: 02/04/24-[facility] Specialty PharmacyComment on above:refill - benlysta-Thursdays- pa exp: 02/04/24-lvmStart: 09-13-2023 End: 60-97-2750Njkkkki encounter vsulkhztq85/22/2024 9:00 AM EDT Office Visit [facility] [address] [place] [address] Kade Early MD [address] [facility] [address] [id number] [facility]: 07-19-2023 End: 43-10-4429Xiolxcj encounter procedureSpooner Healthtart: 07-15-2023 End: 28-90-3416Nycobnf encounter ledsyozse26/22/2024 10:50 AM EST Office Visit [facility] [address] [place] [address] Bernabe English MD [address] [place] [address] [facility] SWS DERMStart: 07-06-2023 End: 51-48-9390Ihaeidr encounter gdwlyflzk52/13/2024 2:30 PM EST Office Visit [facility] [address] [place] [phone] Kade Early MD [address] [facility] [address] [place] [address] [facility] 210Start: 07-06-2023 End: 25-95-3876Lvdbadd electrophoresis, serumProtein electrophoresis, serum Lab Routine Autoimmune disease (CMS/HCC) Autonomic dysfunction Expected: 07/06/2023 (Approximate), Expires: 07/06/2024[facility] Work Phone: Comment on above:Expected: 07/06/2023 (Approximate), Expires: 07/06/2024Start: 07-06-2023 End: 34-20-4252Nzwagde electrophoresis, urineProtein electrophoresis, urine Lab Routine Autoimmune disease (CMS/HCC) Autonomic dysfunction Expected: 07/06/2023 (Approximate), Expires: 07/06/2024[facility] HealthcareComment on above:Expected: 07/06/2023 (Approximate), Expires: 07/06/2024Start: 06-09-2023 End: 67-21-5485Ryfdsv monitor study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 Cardiac Services Routine Irregular heart rate Expected: 06/09/2023 (Approximate), Ex[facility]: [facility]/20[facility] Work [facility]: Comment on above:Expected: 06/09/2023 (Approximate), Expires: 06/09/2024Start: 06-09-2023 End: 19-51-9082Jivqk 1996 panel - Serum or PlasmaLipid Panel Lab Routine Primary hypertension Expected: 06/09/2023 (Approximate), Expires: 06/09/2024[facility] Work Phone: Comment on above:Expected: 06/09/2023 (Approximate), Expires: 06/09/2024Start: 06-09-2023 End: 84-14-2175Ekfciuxsglb [Units/volume] in Serum or PlasmaThyroid Stimulating Hormone Lab Routine Irregular heart rate Expected: 06/09/2023 (Approximate), Exp ires: 06/09/2024[facility] Work Phone: Comment on above:Expected: 06/09/2023 (Approximate), Expires: 06/09/2024Start: 06-09-2023 End: 78-74-9098Fiovuvjjx (T4) free [Mass/volume] in Serum or PlasmaThyroxine, Free Lab Routine Irregular heart rate Expected: 06/09/2023 (Approximate), Expires: 06/09/2024[facility] Work Phone: Comment on above:Expected: 06/09/2023 (Approximate), Expires: 06/09/2024Start: 06-09-2023 End: 22-30-3093BK Heart TransthoracicTransthoracic Echo (TTE) Complete Echocardiography Routine Irregular heart rate Obstructive sleep apnea syndrome Expected: 06/09/2023 (Approximate), Expires: 06/09/2025[facility] Service Area Work Phone: Comment on above:Expected: 06/09/2023 (Approximate), Expires: 06/09/2025Start: 04-25-2023 End: 283407-eobrzhhaevicir D3 [Mass/volume] in Serum or PlasmaVITAMIN D 25 HYDROXY Lab Routine Vitamin D deficiency Expected: 04/25/2023 (Approximate), Expires: 01/25/2024[facility] Work Phone: Comment on above:Expected: 04/25/2023 (Approximate), Expires: 01/25/2024Start: 04-25-2023 End: 01-25-2024 reactive protein [Mass/volume] in Serum or PlasmaC-REACTIVE PROTEIN (CRP) Lab Routine Elevated sed rate Elevated C-reactive protein (CRP) Expected: 04/25/2023 (Approximate), Expires: 01/25/2024[facility] Work Phone: Comment on above:Expected: 04/25/2023 (Approximate), Expires: 01/25/2024Start: 04-25-2023 End: 59-04-2778WOO panel - Blood by Automated countCBC Lab Routine Anemia of chronic disease Expected: 04/25/2023 (Approximate), Expires: 01/25/2024[facility] Work Phone: Comment on above:Expected: 04/25/2023 (Approximate), Expires: 01/25/2024Start: 04-25-2023 End: 18-74-5478Rqskvzmszeuta metabolic 2000 panel - Serum or PlasmaCOMP METABOLIC PANEL Lab Routine Elevated LFTs Expected: 04/25/2023 (Approximate), Expires: 01/25/2024[facility] Work Phone: Comment on above:Expected: 04/25/2023 (Approximate), Expires: 01/25/2024Start: 04-25-2023 End: 12-18-3421Jspegszxtjc sedimentation rateSED RATE WESTERGREN Lab Routine Elevated sed rate Elevated C-reactive protein (CRP) Expected: 04/25/2023 (Approximate), Expires: 01/25/2024[facility] Work Phone: Comment on above:Expected: 04/25/2023 (Approximate), Expires: 01/25/2024Start: 79-58-8318AZAUI-19 Vaccine (4 - Pfizer risk series) COVID-19 Vaccine (4 - Pfizer risk series)[facility] 86-97-6863Zdfjl-19 Vaccine ()Covid-19 Vaccine ()[facility]: 19-03-4733Xmgux-19 Vaccine () Covid-19 Vaccine ()[facility]: 04-16-2023 End: 55-44-1279YAT W Auto Differential panel - BloodCBC + DIFF Lab Routine Megaloblastic anemia due to vitamin B12 deficiency Elevated sed rate Chronic fatigue and malaise High total serum IgM JOSE RAFAEL (obstructive sleep apnea) Expected: 04/16/2023 (Approximate), Expires: 02/20/2024[facility] Work Phone: Comment on above:Expected: 04/16/2023 (Approximate), Expires: 02/20/2024Start: 04-16-2023 End: 86-84-3414Tufbtncbx (Vitamin B12) [Mass/volume] in Serum or PlasmaVITAMIN B12 BLOOD Lab Routine Megaloblastic anemia due to vitamin B12 deficiency Elevated sed rate Chronic fatigue and malaise High total serum IgM JOSE RAFAEL (obstructive sleep apnea) Expected: 04/16/2023 (Approximate), Expires: 02/20/2024[facility] Work Phone: Comment on above:Expected: 04/16/2023 (Approximate), Expires: 02/20/2024Start: 04-16-2023 End: 80-90-1454Rvxwhmufetnrc metabolic 2000 panel - Serum or PlasmaCOMP METABOLIC PANEL Lab Routine Megaloblastic anemia due to vitamin B12 deficiency Elevated sed rate Chronic fatigue and malaise High total serum IgM JOSE RAFAEL (obstructive sleep apnea) Expected: 04/16/2023 (Approximate), Expires: 02/20/2024[facility] Work Phone: Comment on above:Expected: 04/16/2023 (Approximate), Expires: 02/20/2024Start: 04-16-2023 End: 62-90-4887Cxsxdlgt [Mass/volume] in Serum or PlasmaFERRITIN BLD Lab Routine Megaloblastic anemia due to vitamin B12 deficiency Elevated sed rate Chronic fatigue and malaise High total serum IgM JOSE RAFAEL (obstructive sleep apnea) Expected: 04/16/2023 (Approximate), Expires: 02/20/2024[facility] Work Phone: Comment on above:Expected: 04/16/2023 (Approximate), Expires: 02/20/2024Start: 04-16-2023 End: 05-82-4682Fjurnz [Mass/volume] in Serum or PlasmaFOLATE SERUM Lab Routine Megaloblastic anemia due to vitamin B12 deficiency Elevated sed rate Chronic fatigue and malaise High total serum IgM JOSE RAFAEL (obstructive sleep apnea) Expected: 04/16/2023 (Approximate), Expires: 02/20/2024[facility] Work Phone: Comment on above:Expected: 04/16/2023 (Approximate), Expires: 02/20/2024Start: 04-16-2023 End: 79-88-3511Dwok and Iron binding capacity panel - Serum or PlasmaIRON + TIBC Lab Routine Megaloblastic anemia due to vitamin B12 deficiency Elevated sed rate Chronic fatigue and malaise High total serum IgM JOSE RAFAEL (obstructive sleep apnea) Expected: 04/16/2023 (Approximate), Expires: 02/20/2024[facility] Work Phone: Comment on above:Expected: 04/16/2023 (Approximate), Expires: 02/20/2024Start: 50-95-5947WFIZV-19 Vaccine (3 - Pfizer risk series) COVID-19 Vaccine (3 - Pfizer risk series)[facility]: 93-85-4755Onumslzl mellitus screeningDiabetes ScreeningCherrington Hospital: 03-10-2023 End: 31-59-6049Ocphnsa [Units/volume] in Serum or PlasmaINSULIN ASSAY BLOOD Lab Routine Insulin resistance, unspecified Expected: 03/10/2023, Expires: 06/09[facility] Work Phone: comment on above:Expected: 03/10/2023, Expires: 06/09/2023Start: 03-10-2023 End: 96-99-5365BNNYFZA ANTIBODY BLDINSULIN ANTIBODY BLD Lab Routine Insulin resistance, unspecified Expected: 03/10/2023, Expires: 06/09/2023[facility] Work Phone: comment on above:Expected: 03/10/2023, Expires: 06/09/2023Start: 02-11-2023 End: 47-26-1655Wubb-2-Microglobulin [Mass/volume] in Serum or PlasmaB2 MICROGLOBULIN B Lab Routine Megaloblastic anemia due to vitamin B12 deficiency High total serum IgM Elevated sed rate Expected: 02/11/2023 (Approximate), Expires: 02/08/2024[facility] Work Phone: Comment on above:Expected: 02/11/2023 (Approximate), Expires: 02/08/2024Start: 02-11-2023 End: 19-72-1816Qptcyzm.ionized [Moles/volume] in BloodCALCIUM IONIZED BLOOD Lab Routine Megaloblastic anemia due to vitamin B12 deficiency High total serum IgM Elevated sed rate Expected: 02/11/2023 (Approximate), Expires: 02/08/2024 [facility] Work Phone: Comment on above:Expected: 02/11/2023 (Approximate), Expires: 02/08/2024Start: 02-11-2023 End: 75-29-4243QCF W Auto Differential panel - BloodCBC + DIFF Lab Routine Megaloblastic anemia due to vitamin B12 deficiency High total serum IgM Elevated sed rate Expected: 02/11/2023 (Approximate), Expires: 02/08/2024[facility] Work Phone: Comment on above:Expected: 02/11/2023 (Approximate), Expires: 02/08/2024Start: 02-11-2023 End: 84-40-6283Siqmfpsmk (Vitamin B12) [Mass/volume] in Serum or PlasmaVITAMIN B12 BLOOD Lab Routine Megaloblastic anemia due to vitamin B12 deficiency High total serum IgM Elevated sed rate Expected: 02/11/2023 (Approximate), Expires: 02/08/2024[facility] Work Phone: Comment on above:Expected: 02/11/2023 (Approximate), Expires: 02/08/2024Start: 02-11-2023 End: 28-80-8319Nmpbnmkoozoqc metabolic 2000 panel - Serum or PlasmaCOMP METABOLIC PANEL Lab Routine Megaloblastic anemia due to vitamin B12 deficiency High total serum IgM Elevated sed rate Expected: 02/11/2023 (Approximate), Expires: 02/08/2024[facility] Work Phone: Comment on above:Expected: 02/11/2023 (Approximate), Expires: 02/08/2024Start: 02-11-2023 End: 62-95-7721Ibqxwnli [Mass/volume] in Serum or PlasmaFERRITIN BLD Lab Routine Megaloblastic anemia due to vitamin B12 deficiency High total serum IgM Nicole vated sed rate Expected: 02/11/2023 (Approximate), Expires: 02/08/2024[facility] Work Phone: Comment on above:Expected: 02/11/2023 (Approximate), Expires: 02/08/2024Start: 02-11-2023 End: 53-48-6151Algfof [Mass/volume] in Serum or PlasmaFOLATE SERUM Lab Routine Megaloblastic anemia due to vitamin B12 deficiency High total serum IgM Elevated sed rate Expected: 02/11/2023 (Approximate), Expires: 02/08/2024[facility] Work Phone: Comment on above:Expected: 02/11/2023 (Approximate), Expires: 02/08/2024Start: 02-11-2023 End: 17-46-3855Myee and Iron binding capacity panel - Serum or PlasmaIRON + TIBC Lab Routine Megaloblastic anemia due to vitamin B12 deficiency High total serum IgM Elevated sed rate Expected: 02/11/2023 (Approximate), Expires: 02/08/2024 [facility] Work Phone: Comment on above:Expected: 02/11/2023 (Approximate), Expires: 02/08/2024Start: 02-11-2023 End: 36-72-8933NQUAL/FARMER,FREE,SERKAPPA/FARMER,FREE,SER Lab Routine Megaloblastic anemia due to vitamin B12 deficiency High total serumIgM Elevated sed rate Expected: 02/11/2023 (Approximate), Expires: 04/13/2023[facility] Work Phone: Comment on above:Expected: 02/11/2023 (Approximate), Expires: 04/13/2023Start: 02-11-2023 End: 65-81-1013Jdcdfvs dehydrogenase [Enzymatic activity/volume] in Serum or PlasmaLD LACTATE DEHYDRO Lab Routine Megaloblastic anemia due to vitamin B12 deficiency High total serum IgM Elevated sed rate Expected: 02/11/2023 (Approximate), Expires: 02/08/2024[facility] Work Phone: Comment on above:Expected: 02/11/2023 (Approximate), Expires: 02/08/2024Start: 02-11-2023 End: 83-18-9607RBNEIMOIJE PROTEIN, SERUM (BLOOD)MONOCLONAL PROTEIN, SERUM (BLOOD) Lab Routine Megaloblastic anemia due to vitamin B12 deficiency High total serum IgM Elevated sed rate Expected: 02/11/2023 (Approximate), Expires: 02/08/2024[facility] Work Phone: Comment on above:Expected: 02/11/2023 (Approximate), Expires: 02/08/2024Start: 02-11-2023 End: 22-64-8069Jndjwtlwq [Mass/volume] in Serum or PlasmaPHOSPHORUS INORGANIC Lab Routine Megaloblastic anemia due to vitamin B12 deficiency High total serum IgM Elevated sed rate Expected: 02/11/2023 (Approximate), Expires: 02/08/2024 [facility] Work Phone: Comment on above:Expected: 02/11/2023 (Approximate), Expires: 02/08/2024Start: 02-11-2023 End: 70-23-9186BEFYDNG ELECTROPHORESIS SERUM W/INTERPPROTEIN ELECTROPHORESIS SERUM W/INTERP Lab Routine Megaloblastic anemia due to vitamin B12 deficiency High total serum IgM Elevated sed rate Expected: 02/11/2023 (Approximate), Expires: 02/08/2024[facility] Work Phone: Comment on above:Expected: 02/11/2023 (Approximate), Expires: 02/08/2024Start: 02-11-2023 End: 15-41-3947Ftjsk [Mass/volume] in Serum or PlasmaURIC ACID BLOOD Lab Routine Megaloblastic anemia due to vitamin B12 deficiency High total serum IgMElevated sed rate Expected: 02/11/2023 (Approximate), Expires: 02/08/2024[facility] Work Phone: Comment on above:Expected: 02/11/2023 (Approximate), Expires: 02/08/2024Start: 07-78-8865Bdcaypgxg vaccinationAccess [facility]: 12-17-2022 End: 44-28-3940KYO W Auto Differential panel - BloodCBC + DIFF Lab Routine Megaloblastic anemia due to vitamin B12 deficiency Expected: 12/17/2022 (Appr oximate), Expires: 10/23/2023[facility] Work Phone: Comment on above:Expected: 12/17/2022 (Approximate), Expires: 10/23/2023Start: 12-17-2022 End: 40-21-1291Hmbcirtar (Vitamin B12) [Mass/volume] in Serum or PlasmaVITAMIN B12 BLOOD Lab Routine Megaloblastic anemia due to vitamin B12 deficiency Expected: 12/17/2022 (Approximate), Expires: 10/23/2023[facility] Work Phone: Comment on above:Expected: 12/17/2022 (Approximate), Expires: 10/23/2023Start: 12-17-2022 End: 75-24-3059Fxcwguzuzmgjr metabolic 2000 panel - Serum or PlasmaCOMP METABOLIC PANEL Lab Routine Megaloblastic anemia due to vitamin B12 deficiency Expected: 12/17/2022 (Approximate), Expires: 10/23/2023[facility] Work Phone: Comment on above:Expected: 12/17/2022 (Approximate), Expires: 10/23/2023Start: 12-17-2022 End: 28-92-6496Bjttybgh [Mass/volume] in Serum or PlasmaFERRITIN BLD Lab Routine Megaloblastic anemia due to vitamin B12 deficiency Expected: 12/17/2022 (Ap proximate), Expires: 10/23/2023[facility] Work Phone: Comment on above:Expected: 12/17/2022 (Approximate), Expires: 10/23/2023Start: 12-17-2022 End: 53-80-5074Uksigj [Mass/volume] in Serum or PlasmaFOLATE SERUM Lab Routine Megaloblastic anemia due to vitamin B12 deficiency Expected: 12/17/2022 (Ap proximate), Expires: 10/23/2023[facility] Work Phone: Comment on above:Expected: 12/17/2022 (Approximate), Expires: 10/23/2023Start: 12-17-2022 End: 97-27-6911Xfvm and Iron binding capacity panel - Serum or PlasmaIRON + TIBC Lab Routine Megaloblastic anemia due to vitamin B12 deficiency Expected: 12/17/2022 (Approximate), Expires: 10/23/2023[facility] Work Phone: Comment on above:Expected: 12/17/2022 (Approximate), Expires: 10/23/2023Start: 10-23-2022 End: 08-12-682689397499-zxhgrdxutbeaop D3 [Mass/volume] in Serum or PlasmaVITAMIN D 25 HYDROXY Lab Routine Megaloblastic anemia due to vitamin B12 deficiency Elevated sed rate High total serum IgM Chronic fatigue and malaise JOSE RAFAEL (obstructive sleep apnea) Expected: 10/23/2022, Expires: 12/23/2022[facility] Work Phone: Comment on above:Expected: 10/23/2022, Expires: 12/23/2022Start: 10-23-2022 End: 12-23-2022 reactive protein [Mass/volume] in Serum or PlasmaC-REACTIVE PROTEIN (CRP) Lab Routine Megaloblastic anemia due to vitamin B12 deficiency Elevated sed rate High total serum IgM Chronic fatigue and malaise JOSE RAFAEL (obstructive sleep apnea) Expected: 10/23/2022, Expires: 12/23/2022[facility] Work Phone: Comment on above:Expected: 10/23/2022, Expires: 12/23/2022Start: 10-23-2022 End: 79-10-5950LNM W Auto Differential panel - BloodCBC + DIFF Lab Routine Megaloblastic anemia due to vitamin B12 deficiency Elevated sed rate High total serum IgM Chronic fatigue and malaise JOSE RAFAEL (obstructive sleep apnea) Expected: 10/23/2022, Expires: 12/23/2022[facility] Work Phone: Comment on above:Expected: 10/23/2022, Expires: 12/23/2022Start: 10-23-2022 End: 45-63-9216Fyrzbxwfs (Vitamin B12) [Mass/volume] in Serum or PlasmaVITAMIN B12 BLOOD Lab Routine Megaloblastic anemia due to vitamin B12 deficiency Elevated sed rate High total serum IgM Chronic fatigue and malaise JOSE RAFAEL (obstructive sleep apnea) Expected: 10/23/2022,Expires: 12/23/2022[facility] Work Phone: Comment on above:Expected: 10/23/2022, Expires: 12/23/2022Start: 10-23-2022 End: 61-53-5516Bgnnniujookjo metabolic 2000 panel - Serum or PlasmaCOMP METABOLIC PANEL Lab Routine Megaloblastic anemia due to vitamin B12 deficiency Elevated sed rate High total serum IgM Chronic fatigue and malaise JOSE RAFAEL (obstructive sleep apnea) Expected: 10/23/2022, Expires: 12/23/2022[facility] Work Phone: Comment on above:Expected: 10/23/2022, Expires: 12/23/2022Start: 10-23-2022 End: 88-22-5545Ivvnylhppqm sedimentation rateSED RATE WESTERGREN Lab Routine Megaloblastic anemia due to vitamin B12 deficiency Elevated sed rate High total serum IgM Chronic fatigue and malaise JOSE RAFAEL (obstructive sleep apnea) Expected: 10/23/2022, Expires: 12/23/2022[facility] Work Phone: Comment on above:Expected: 10/23/2022, Expires: 12/23/2022Start: 10-23-2022 End: 01-22-1466Fnohlnr dehydrogenase [Enzymatic activity/volume] in Serum or PlasmaLD LACTATE DEHYDRO Lab Routine Megaloblastic anemia due to vitamin B12 deficiency Elevated sed rateHigh total serum IgM Chronic fatigue and malaise JOSE RAFAEL (obstructive sleep apnea) Expected: 10/23/2022, Expires: 12/23/2022[facility] Work Phone: Comment on above:Expected: 10/23/2022, Expires: 12/23/2022Start: 10-23-2022 End: 82-45-1342RYGNFMNIVG PROTEIN, SERUM (BLOOD)MONOCLONAL PROTEIN, SERUM (BLOOD) Lab Routine Megaloblastic anemia due to vitamin B12 deficiency Elevated sed rate High total serum IgM Chronic fatigue and malaise JOSE RAFAEL (obstructive sleep apnea) Expected: 10/23/2022, Expires: 12/23/2022[facility] Work Phone: Comment on above:Expected: 10/23/2022, Expires: 12/23/2022Start: 10-23-2022 End: 49-83-1014TESL ELECT SERUM WITH DANA AND INTERPPROT ELECT SERUM WITH DANA AND INTERP Lab Routine Megaloblastic anemia due to vitamin B12 deficiencyElevated sed rate High total serum IgM Chronic fatigue and malaise JOSE RAFAEL (obstructive sleep apnea) Expected: 10/23/2022, Expires: 12/23/2022[facility] Work Phone: Comment on above:Expected: 10/23/2022, Expires: 12/23/2022Start: 09-19-2022 End: 33-66-2619FAN panel - Blood by Automated countCBC Lab Routine Anemia of chronic disease Expected: 09/19/2022 (Approximate), Expires: 08/20/2023[facility] Work Phone: Comment on above:Expected: 09/19/2022 (Approximate), Expires: 08/20/2023Start: 09-19-2022 End: 37-65-1884Idziovwtuelgs metabolic 2000 panel - Serum or PlasmaCOMP METABOLIC PANEL Lab Routine Elevated LFTs Expected: 09/19/2022 (Approximate), Expires: 08/20/2023[facility] Work Phone: Comment on above:Expected: 09/19/2022 (Approximate), Expires: 08/20/2023Start: 09-19-2022 End: 91-95-2237JPUS PHENOTYPE/ENZYME ACTIVITYTPMT PHENOTYPE/ENZYME ACTIVITY Lab Routine Encounter for care home current use of azathioprine Expected: 09/19/2022 (Approximate), Expires: 11/19/2022[facility] Work Phone: Comment on above:Expected: 09/19/2022 (Approximate), Expires: 11/19/2022Start: 08-28-2022 End: 54-23-537631864628-dlmxxbklpczplp D3 [Mass/volume] in Serum or PlasmaVITAMIN D 25 HYDROXY Lab Routine Megaloblastic anemia due to vitamin B12 deficiency Elevated sed rate High total serum IgM Chronic fatigue and malaise Expected: 08/28/2022 (Approximate), Expires: 10/28/2022[facility] Work Phone: Comment on above:Expected: 08/28/2022 (Approximate), Expires: 10/28/2022Start: 08-28-2022 End: 98-50-8379Xyiv-2-Microglobulin [Mass/volume] in Serum or PlasmaB2 MICROGLOBULIN B Lab Routine Megaloblastic anemia due to vitamin B12 deficiency Elevated sed rateHigh total serum IgM Chronic fatigue and malaise Expected: 08/28/2022 (Approximate), Expires: 07/26/2023[facility] Work Phone: Comment on above:Expected: 08/28/2022 (Approximate), Expires: 07/26/2023Start: 08-28-2022 End: 10-28-2022 reactive protein [Mass/volume] in Serum or PlasmaC-REACTIVE PROTEIN (CRP) Lab Routine Megaloblastic anemia due to vitamin B12 deficiency Elevated sed rate High total serum IgM Chronic fatigue and malaise Expected: 08/28/2022 (Approximate), Expires:10/28/2022[facility] Work Phone: Comment on above:Expected: 08/28/2022 (Approximate), Expires: 10/28/2022Start: 08-28-2022 End: 58-44-4307Zkredvd.ionized [Moles/volume] in BloodCALCIUM IONIZED BLOOD Lab Routine Megaloblastic anemia due to vitamin B12 deficiency Elevated sed rate High total serum IgM Chronic fatigue and malaise Expected: 08/28/2022 (Approximate), Expires: 07/26/2023[facility] Work Phone: Comment on above:Expected: 08/28/2022 (Approximate), Expires: 07/26/2023Start: 08-28-2022 End: 67-16-1313KMD W Auto Differential panel - BloodCBC + DIFF Lab Routine Megaloblastic anemia due to vitamin B12 deficiency Elevated sed rate High total serum IgM Chronic fatigue and malaise Expected: 08/28/2022 (Approximate), Expires: 07/26/2023[facility] Work Phone: Comment on above:Expected: 08/28/2022 (Approximate), Expires: 07/26/2023Start: 08-28-2022 End: 07-80-8845Kweshjfid (Vitamin B12) [Mass/volume] in Serum or PlasmaVITAMIN B12 BLOOD Lab Routine Megaloblastic anemia due to vitamin B12 deficiency Elevated sed rate High total serum IgM Chronic fatigue and malaise Expected: 08/28/2022 (Approximate), Expires: 10/28/2022[facility] Work Phone: Comment on above:Expected: 08/28/2022 (Approximate), Expires: 10/28/2022Start: 08-28-2022 End: 31-87-1378Mtdymvtnfvccv metabolic 2000 panel - Serum or PlasmaCOMP METABOLIC PANEL Lab Routine Megaloblastic anemia due to vitamin B12 deficiency Elevated sed rate High total serum IgM Chronic fatigue and malaise Expected: 08/28/2022 (Approximate), Expires: 07/26/2023[facility] Work Phone: Comment on above:Expected: 08/28/2022 (Approximate), Expires: 07/26/2023Start: 08-28-2022 End: 92-98-0913Zljozeykjih sedimentation rateSED RATE WESTERGREN Lab Routine Megaloblastic anemia due to vitamin B12 deficiency Elevated sed rate High total serum IgM Chronic fatigue and malaise Expected: 08/28/2022 (Approximate), Expires: 10/28/2022[facility] Work Phone: Comment on above:Expected: 08/28/2022 (Approximate), Expires: 10/28/2022Start: 08-28-2022 End: 86-39-0248ZYMAF/FARMER,FREE,SERKAPPA/FARMER,FREE,SER Lab Routine Megaloblastic anemia due to vitamin B12 deficiency Elevated sed rate High total serum IgM Chronic fatigue and malaise Expected: 08/28/2022 (Approximate), Expires: 10/28[facility] Work Phone: Comment on above:Expected: 08/28/2022 (Approximate), Expires: 10/28/2022Start: 08-28-2022 End: 22-81-2591Phlfayp dehydrogenase [Enzymatic activity/volume] in Serum or PlasmaLD LACTATE DEHYDRO Lab Routine Megaloblastic anemia due to vitamin B12 deficiency Elevated sed rateHigh total serum IgM Chronic fatigue and malaise Expected: 08/28/2022 (Approximate), Expires: 07/26/2023[facility] Work Phone: Comment on above:Expected: 08/28/2022 (Approximate), Expires: 07/26/2023Start: 08-28-2022 End: 85-22-2049QFAJLSBRAN PROTEIN, SERUM (BLOOD)MONOCLONAL PROTEIN, SERUM (BLOOD) Lab Routine Megaloblastic anemia due to vitamin B12 deficiency Elevated sed rate High total serum IgM Chronic fatigue and malaise Expected: 08/28/2022 (Approximate),Expires: 07/26/2023[facility] Work Phone: Comment on above:Expected: 08/28/2022 (Approximate), Expires: 07/26/2023Start: 08-28-2022 End: 55-50-1029Ssyssmtob [Mass/volume] in Serum or PlasmaPHOSPHORUS INORGANIC Lab Routine Megaloblastic anemia due to vitamin B12 deficiency Elevated sed rate High total serum IgM Chronic fatigue and malaise Expected: 08/28/2022 (Approximate), Expires: 07/26/2023[facility] Work Phone: Comment on above:Expected: 08/28/2022 (Approximate), Expires: 07/26/2023Start: 08-28-2022 End: 30-34-5858CVGDXLU ELECTROPHORESIS SERUM W/INTERPPROTEIN ELECTROPHORESIS SERUM W/INTERP Lab Routine Megaloblastic anemia due to vitamin B12 deficiency Elevated sed rate High total serum IgM Chronic fatigue and malaise Expected: 08/28/2022 (Approximate), Expires: 07/26/2023[facility] Work Phone: Comment on above:Expected: 08/28/2022 (Approximate), Expires: 07/26/2023Start: 08-28-2022 End: 59-72-6710Mcikv [Mass/volume] in Serum or PlasmaURIC ACID BLOOD Lab Routine Megaloblastic anemia due to vitamin B12 deficiency Elevated sed rate High total serum IgM Chronic fatigue and malaise Expected: 08/28/2022 (Approximate), Expires: 07/26/2023[facility] Work Phone: Comment on above:Expected: 08/28/2022 (Approximate), Expires: 07/26/2023Start: 07-15-2022 End: 90-34-0204Xjcg-2-Microglobulin [Mass/volume] in Serum or PlasmaB2 MICROGLOBULIN B Lab Routine High total serum IgM Expected: 07/15/2022 (Approximate), Expires: 05/20/2023[facility] Work Phone: Comment on above:Expected: 07/15/2022 (Approximate), Expires: 05/20/2023Start: 07-15-2022 End: 36-17-2015Aziydoz.ionized [Moles/volume] in BloodCALCIUM IONIZED BLOOD Lab Routine High total serum IgM Expected: 07/15/2022 (Approximate), Expires: 05/20/2023[facility] Work Phone: Comment on above:Expected: 07/15/2022 (Approximate), Expires: 05/20/2023Start: 07-15-2022 End: 51-83-0218RAY W Auto Differential panel - BloodCBC + DIFF Lab Routine High total serum IgM Expected: 07/15/2022 (Approximate), Expires: 05/20/2023[facility] Work Phone: Comment on above:Expected: 07/15/2022 (Approximate), Expires: 05/20/2023Start: 07-15-2022 End: 04-71-9033Yamtnihftnius metabolic 2000 panel - Serum or PlasmaCOMP METABOLIC PANEL Lab Routine High total serum IgM Expected: 07/15/2022 (Approximate), Expires: 05/20/2023[facility] Work Phone: Comment on above:Expected: 07/15/2022 (Approximate), Expires: 05/20/2023Start: 07-15-2022 End: 92-49-6858QPBFV/FARMER,FREE,SERKAPPA/FARMER,FREE,SER Lab Routine High total serum IgM Expected: 07/15/2022 (Approximate), Expires: 09/14/2022[facility] Work Phone: Comment on above:Expected: 07/15/2022 (Approximate), Expires: 09/14/2022Start: 07-15-2022 End: 32-70-9332Jiiejqt dehydrogenase [Enzymatic activity/volume] in Serum or PlasmaLD LACTATE DEHYDRO Lab Routine High total serum IgM Expected: 07/15/2022 (Approximate), Expires: 05/20/2023[facility] Work Phone: Comment on above:Expected: 07/15/2022 (Approximate), Expires: 05/20/2023Start: 07-15-2022 End: 51-39-6861XDTKCMPKPK PROTEIN, SERUM (BLOOD)MONOCLONAL PROTEIN, SERUM (BLOOD) Lab Routine High total serum IgM Expected: 07/15/2022 (Approximate), Expires: 05/20/2023[facility] Work Phone: Comment on above:Expected: 07/15/2022 (Approximate), Expires: 05/20/2023Start: 07-15-2022 End: 01-64-2646Amvwfjnff [Mass/volume] in Serum or PlasmaPHOSPHORUS INORGANIC Lab Routine High total serum IgM Expected: 07/15/2022 (Approximate), Expires: 1 07/21/2022[facility] Work Phone: Comment on above:Expected: 07/15/2022 (Approximate), Expires: 05/20/2023Start: 07-15-2022 End: 22-94-2436TCTBPIR ELECTROPHORESIS SERUM W/INTERPPROTEIN ELECTROPHORESIS SERUM W/INTERP Lab Routine High total serum IgM Expected: 07/15/2022 (Approx imate), Expires: 05/20/2023[facility] Work Phone: Comment on above:Expected: 07/15/2022 (Approximate), Expires: 05/20/2023Start: 07-15-2022 End: 52-44-7922Thiuj [Mass/volume] in Serum or PlasmaURIC ACID BLOOD Lab Routine High total serum IgM Expected: 07/15/2022 (Approximate), Expires: 05/20/2023 [facility] Work Phone: Comment on above:Expected: 07/15/2022 (Approximate), Expires: 05/20/2023Start: 06-05-2022 End: 157948-stvqhsbrycsweq D3 [Mass/volume] in Serum or PlasmaVITAMIN D 25 HYDROXY Lab Routine Vitamin D deficiency Expected: 06/05/2022 (Approximate), Expires: 03/05/2023[facility] Work Phone: Comment on above:Expected: 06/05/2022 (Approximate), Expires: 03/05/2023Start: 06-05-2022 End: 03-05-2023 reactive protein [Mass/volume] in Serum or PlasmaC-REACTIVE PROTEIN (CRP) Lab Routine Elevated sed rate Elevated C-reactive protein (CRP) Expected: 06/05/2022 (Approximate), Expires: 03/05/2023[facility] Work Phone: Comment on above:Expected: 06/05/2022 (Approximate), Expires: 03/05/2023Start: 06-05-2022 End: 03-10-0556Fckxplqej (Vitamin B12) [Mass/volume] in Serum or PlasmaVITAMIN B12 BLOOD Lab Routine Vitamin B12 deficiency Expected: 06/05/2022 (Approximate), Expires: 03/05/2023[facility] Work Phone: [phone] on above:Expected: 06/05/2022 (Approximate), Expires: 03/05/2023Start: 06-05-2022 End: 80-57-0781Mqroexpgkhk sedimentation rateSED RATE WESTERGREN Lab Routine Elevated sed rate Elevated C-reactive protein (CRP) Expected: 06/05/2022 (Approximate), Expires: 03/05/2023[facility] Work Phone: Comment on above:Expected: 06/05/2022 (Approximate), Expires: 03/05/2023Start: 05-06-2022 End: 46-38-5294Qgxr-2-Microglobulin [Mass/volume] in Serum or PlasmaB2 MICROGLOBULIN B Lab Routine Megaloblastic anemia due to vitamin B12 deficiency High total serum IgM Expected: 05/06/2022 (Approximate), Expires: 03/18/2023 [facility] Work Phone: Comment on above:Expected: 05/06/2022 (Approximate), Expires: 03/18/2023Start: 05-06-2022 End: 15-85-4368Hpowshi.ionized [Moles/volume] in BloodCALCIUM IONIZED BLOOD Lab Routine Megaloblastic anemia due to vitamin B12 deficiency High total serum IgM Expected: 05/06/2022 (Approximate), Expires: 03/18/2023[facility] Work Phone: Comment on above:Expected: 05/06/2022 (Approximate), Expires: 03/18/2023Start: 05-06-2022 End: 37-52-8347BZD W Auto Differential panel - BloodCBC + DIFF Lab Routine Megaloblastic anemia due to vitamin B12 deficiency High total serum IgM Expec zabrina: 05/06/2022 (Approximate), Expires: 03/18/2023[facility] Work Phone: Comment on above:Expected: 05/06/2022 (Approximate), Expires: 03/18/2023Start: 05-06-2022 End: 57-34-8062Rgnwdqvvhezhj metabolic 2000 panel - Serum or PlasmaCOMP METABOLIC PANEL Lab Routine Megaloblastic anemia due to vitamin B12 deficiency High total serum IgM Expected: 05/06/2022 (Approximate), Expires: 03/18/2023 [facility] Work Phone: Comment on above:Expected: 05/06/2022 (Approximate), Expires: 03/18/2023Start: 05-06-2022 End: 80-22-1766Ppeztmvd [Mass/volume] in Serum or PlasmaFERRITIN BLD Lab Routine Megaloblastic anemia due to vitamin B12 deficiency High total serum IgM Exp ected: 05/06/2022 (Approximate), Expires: 03/18/2023[facility] Work Phone: Comment on above:Expected: 05/06/2022 (Approximate), Expires: 03/18/2023Start: 05-06-2022 End: 73-31-1113Wqes and Iron binding capacity panel - Serum or PlasmaIRON + TIBC Lab Routine Megaloblastic anemia due to vitamin B12 deficiency High total serum IgM Expected: 05/06/2022 (Approximate), Expires: 03/18/2023[facility] Work Phone: Comment on above:Expected: 05/06/2022 (Approximate), Expires: 03/18/2023Start: 05-06-2022 End: 13-63-5432Pbnouge dehydrogenase [Enzymatic activity/volume] in Serum or PlasmaLD LACTATE DEHYDRO Lab Routine Megaloblastic anemia due to vitamin B12 deficiency High total serum IgM Expected: 05/06/2022 (Approximate), Expires: 03/18/2023[facility] Work Phone: Comment on above:Expected: 05/06/2022 (Approximate), Expires: 03/18/2023Start: 05-06-2022 End: 69-45-6273NTYQUZZKYN PROTEIN, SERUM (BLOOD)MONOCLONAL PROTEIN, SERUM (BLOOD) Lab Routine Megaloblastic anemia due to vitamin B12 deficiency High total serum IgM Expected: 05/06/2022 (Approximate), Expires: 03/18/2023[facility] Work Phone: Comment on above:Expected: 05/06/2022 (Approximate), Expires: 03/18/2023Start: 05-06-2022 End: 37-68-4074Tusouddgc [Mass/volume] in Serum or PlasmaPHOSPHORUS INORGANIC Lab Routine Megaloblastic anemia due to vitamin B12 deficiency High total serum IgM Expected: 05/06/2022 (Approximate), Expires: 03/18/2023[facility] Work Phone: Comment on above:Expected: 05/06/2022 (Approximate), Expires: 03/18/2023Start: 05-06-2022 End: 45-46-5415ZROLNXB ELECTROPHORESIS SERUM W/INTERPPROTEIN ELECTROPHORESIS SERUM W/INTERP Lab Routine Megaloblastic anemia due to vitamin B12 deficiency High total serum IgM Expected: 05/06/2022 (Approximate), Expires: 03/18/2023 [facility] Work Phone: Comment on above:Expected: 05/06/2022 (Approximate), Expires: 03/18/2023Start: 05-06-2022 End: 85-95-3045Ehdeq [Mass/volume] in Serum or PlasmaURIC ACID BLOOD Lab Routine Megaloblastic anemia due to vitamin B12 deficiency High total serum IgM Expected: 05/06/2022 (Approximate), Expires: 03/18/2023[facility] Work Phone: Comment on above:Expected: 05/06/2022 (Approximate), Expires: 03/18/2023Start: 06-03-8008YQOXM-19 VACCINE (5 - Pfizer risk series) COVID-19 VACCINE (5 - Pfizer risk series)[facility]: 03-09-2022 End: 83-83-6858Ycwhfrledr A1c in BloodHGB A1C Lab Routine Elevated glucose Expected: 03/09/2022, Expires: 05/09/2022[facility] Work Phone: comurwt on above:Expected: 03/09/2022, Expires: 05/09/2022tart: 02-24-2022 End: 25-65-9947MCRRNAESAU AB PANELBARTONELLA AB PANEL Lab Routine Swelling of lymph nodes Expected: 02/24/2022, Expires: 04/26/2022[facility] Work Phone: comipeo on above:Expected: 02/24/2022, Expires: 04/26/2022tart: 02-24-2022 End: 74-57-9707LISDVNPL AB TOTALBRUCELLA AB TOTAL Lab Routine Swelling of lymph nodes Expected: 02/24/2022, Expires: 04/26/2022[facility] Work Phone: comnkow on above:Expected: 02/24/2022, Expires: 04/26/2022tart: 02-24-2022 End: 39-44-2269Bkannrdrifoo sp Ag [Presence] in Unspecified specimen by Latex agglutinationCRYPTOCOCCUS AG DET Microbiology Routine Swelling of lymph nodes Expected: 02/24/2022, Expires: 04/26/2022[facility] Work Phone: comment on above:Expected: 02/24/2022, Expires: 04/26/2022tart: 02-24-2022 End: 43-83-0856AHCVAWEQDSI AG URINEHISTOPLASMA AG URINE Lab Routine Swelling of lymph nodes Expected: 02/24/2022, Expires: 04/26/2022[facility] Work Phone: comment on above:Expected: 02/24/2022, Expires: 04/26/2022tart: 02-24-2022 End: 83-56-6231RTA 1 RNA [#/volume] (viral load) in Serum or Plasma by YESSI with probe detectionHIV RNA VIRAL LOAD Lab Routine Swelling of lymph nodes Expected: 02/24/2022, Expires: 04/26/2022[facility] Work Phone: comehri on above:Expected: 02/24/2022, Expires: 04/26/2022tart: 02-24-2022 End: 22-95-5573IHGKIUQY TOTAL W/REFLEXSYPHILIS TOTAL W/REFLEX Lab Routine Swelling of lymph nodes Expected: 02/24/2022, Expires: 04/26/2022[facility] Work Phone: comment on above:Expected: 02/24/2022, Expires: 04/26/2022tart: 14-76-2616Mjjjpsnlo vaccinationAccess Hospital Daytontart: 48-75-8211ULMEQ-19 VACCINE (4 - Booster for Pfizer series)COVID-19 VACCINE (4 - Booster for Pfizer series)[facility]: 03-33-9820Qcjoopnzs vaccination Flu vaccine (Season Ended)[facility] Work Phone: start: 77-89-8897Lomdf panelBarney Children's Medical Centertart: 41-30-2944NmjsaxoiinbMrbtouiqk ClinicStart: 20-55-9647Mivhxsolg for malignant neoplasm of breastAccess Hospital Day[facility]ontart: 37-32-4185EDC TESTINGHPV TESTING [facility]: 44-12-7496Lsnpiwvgp for malignant neoplasm of cervix [facility]: 06-44-9316TCJ VACCINE (1 - 3-dose SCDM series)HPV VACCINE (1 - 3-dose SCDM series)[facility]: 30-00-4979ZCA Vaccine (1 - Risk 3-dose SCDM series)HPV Vaccine (1 - Risk 3-dose SCDM series)[facility]: 25-18-1553UBfM/Tdap/Td Vaccines (1 - Tdap)DTaP/Tdap/Td Vaccines (1 - Tdap)[facility] HospitalStart: 25-40-6440LGL TESTINGPAP TESTING [facility]: 39-83-1576Otcduxred for malignant neoplasm of cervix [facility]: 58-22-2428KUkY,Tdap and Td Vaccines (1 - Tdap)DTaP,Tdap and Td Vaccines (1 - Tdap)[facility]Ge[facility] Hospitaltart: 48-44-0649AYdO/Tdap/Td vaccine (1 - Tdap)DTaP/Tdap/Td vaccine (1 - Tdap)[employer] Phone: start: 69-10-4389Uwzujjopf B vaccinationHEP B VACCINE (1 of 3 - 19+ 3-dose series)[facility]: 73-61-0560Iybpnybfa B Vaccine (1 of 3 - 19+ 3-dose series)Hepatitis B Vaccine (1 of 3 - 19+ 3-dose series)[facility]: 92-60-3825Ndhormqlf B Vaccines (1 of 3 - 19+ 3- dose series)Hepatitis B Vaccines (1 of 3 - 19+ 3-dose series)[facility] HospitalStstrafford: 51-06-5791Iavpzblaerpk vaccinationPneumococcal Vaccine (1 of 2 - PCV)[facility]: 68-22-7210Ikaeykcoygyk Vaccine: Pediatrics and At-Risk Adult Patients (1 of 2 - PCV)Pneumococcal Vaccine: Pediatrics and At-Risk Adult Patients (1 of 2 - PCV)[facility] Hospital[facility]: 34-54-4355TEDKLXJW VACCINE (1 of 2)SHINGRIX VACCINE (1 of 2) [facility]: 62-04-1724Lhoug diphtheria, tetanus and acellular pertussis (DTaP) vaccinationTDAP (ADULT)[facility]: 10-05-1999 Urine microalbumin profileAccess Hospital Daytontart: 88-23-2066Owtjhp Vaccines (1 of 2)Zoster Vaccines (1 of 2)[facility] HospitalStstraff[facility]: 1998 Adult BMI Follow Up PlanAdult BMI Follow Up PlanHaywood Regional Medical Centertart: 03-17-0894Aorcf BMI ScreeningAdult BMI ScreeningHaywood Regional Medical Centertart: 46-40-2345Pfoqrmm ScreeningAnxiety ScreeningAccess [facility]: 1998 Hepatitis C screeningHepatitis C ScreeningUnFairfield Medical Center Start: 39-31-0242WEC SCREENINGHIV SCREENINGAccess [facility]: 34-09-2767FGE screeningHIV ScreeningAccess Hospital [facility]art: 73-57-9080YQC screeningBarney Children's Medical Centertart: 13-51-5773Jtydosxst vaccinationVaricella Vaccines (1 of 2 - 13+ 2- dose series)[facility]: 01-02-1285CSRMR-19 Vaccine (1)COVID-19 Vaccine (1)[employer] Phone: start: 26-58-6219Dkdhkxjupg ScreeningDepression ScreeningHaywood Regional Medical Centertart: 82-73-5709Wagacyr ScreeningTobacco ScreeningHaywood Regional Medical Centertart: 66-66-2833Atuydhiag for malignant neoplasm of cervixCervical Cancer ScreeningAccess Hospital Daytontart: 1986 PNEUMOCOCCAL (1 - PCV)PNEUMOCOCCAL (1 - PCV)[facility]: 1986 Pneumococcal vaccinationAccess Hospital [facility]: 31-78-3543Rnkzfdebvqwu Vaccine: Pediatrics (0 to 5 Years) and At-Risk Patients (6 to 64 Years) (1 - PCV) Pneumococcal Vaccine: Pediatrics (0 to 5 Years) and At-Risk Patients (6 to 64 Years) (1 - PCV)[facility]: 82-92-5799FED Vaccines (1 of 1 - Standard series)MMR Vaccines (1 of 1 - Standard series)[facility]: 61-03-4874Onpwlaxwv vaccinationVaricella Vaccines (1 of 2 - 2-dose childhood series)[facility]: 81-39-4569Houilspch vaccine (1 of 2 - 2-dose childhood series)Varicella vaccine (1 of 2 - 2-dose childhood series)[employer] Phone: start: 97-96-8969ZAXRNWDMP B (1 of 3 - 3-dose series) HEPATITIS B (1 of 3 - 3-dose series)[facility]: 48-57-6841Szxjoltgy B Vaccine (1 of 3 - 3-dose series)Hepatitis B Vaccine (1 of 3 - 3-dose series) [facility]: 95-73-6715Gbyincbid B Vaccines (1 of 3 - 3-dose series) Hepatitis B Vaccines (1 of 3 - 3-dose series)[facility] Start: 37-59-3069Umoaejbsg C screeningBarney Children's Medical Centertart: 16-37-3825SKU screeningHIV ScreeningMercy Health West HospitalStart: 99-89-1066XGV Vaccine: Recommended Based On RiskHPV Vaccine: Recommended Based On Risk [facility]: 73-96-5011Hgkqa panelLipid PanelMercy Health West HospitalStart: 81-03-2968Bgkrxymtz for osteoporosisBone Density ScanCherrington Hospital: 51-49-2166Nvzhscc vaccinationTETANUSAWVUMedicine [facility]ville Hospital SystemStart: 80-80-4602Borkbgl CounselingTobacco CounselingSelect Medical [facility] SystemStart: 75-46-7752Hqktfy Adult PhysicalYearly Adult PhysicalMercy Health West Hospital25-hydroxyvitamin D3 [Mass/volume] in Serum or Plasma VITAMIN D 25 HYDROXY Lab Routine Vitamin D deficiency 01/11/2025 1:48 PM EDT [facility] CenterAEROBIC CULTUREAEROBIC CULTURE Lab Routine 03/02/2025 5:[facility] Work [facility]: ANAEROBIC CULTUREANAEROBIC CULTURE Lab Routine 03/02/2025 5:17 PM EDHenry County Medical CenterBacteria identified in Unspecified specimen by Aerobe cultureMetrohealth Parma Medical CenterBacteria identified in Unspecified specimen by Anaerobe cultureMetrohealth Parma Medical CenterBLOOD TB SCREENBLOOD TB SCREEN Lab Routine Screening-pulmonary TB 01/11/2025 1:48 PM EDTCleveland ClinicC reactive protein [Mass/volume] in Serum or PlasmaC-REACTIVE PROTEIN Lab Routine Elevated sed rate Elevated C-reactive protein (CRP) 01/11/2025 1:48 PM EDTCleveland ClinicCardiovascular function eval w/tilt table w/mntrTILT TABLE EVALUATION Cardiology Routine POTS (postural orthostatic tachycardia syndrome) Ordered: 03/09/2022[facility] Work Phone: comment on above:Ordered: 03/09/2022BC W Auto Differential panel - BloodCBC and differential Lab Routine Menorrhagia with regular cycle Ordered: 03/23/2024[facility] [employer] Work Phone: comment on above:Ordered: 03/23/2024hronic hepatitis differentiation between hepatitis B and C virus panel - Serum or PlasmaHEP REMOTE PANEL BL Lab Routine Elevated LFTs 01/11/2025 1:48 PM EDTClevelunc [facility] Cobalamin (Vitamin B12) [Mass/volume] in Serum or PlasmaVITAMIN B12 Lab Routine Vitamin B12 deficiency 01/11/2025 1:48 PM EDTCleveland ClinicCT Abdomen W contrast [facility] End: 58-91-5231UHR-AXIAL SKELETONDXA-AXIAL SKELETON Radiology Routine Steroid- induced osteoporosis 1 Occurrences starting 02/04/2023until 03/05/2024[facility] Work Phone: Comment on above:1 Occurrences starting 02/04/2023 until 03/05/2024 End: 40-02-2185IFS-FOREARM SKELETONDXA-FOREARM SKELETON Radiology Routine Steroid-induced osteoporosis 1 Occurrences starting 02/04/2023 until 03/05/2024 [facility] Work Phone: Comment on above:1 Occurrences starting 02/04/2023 until 03/05/2024ECG 12 LeadECG 12 Lead ECG Routine Irregular heart rate 06/09/2023 8:28 AM [facility] Work Phone: Erythrocyte sedimentation rateSEDIMENTATION RATE, WESTERGREN Lab Routine Elevated sed rate Elevated C-reactive protein (CRP) 01/11 1:48 PM [facility] Work Phone: hCG, quantitative, pregnancyhCG, quantitative, Lab Routine Menorrhagia with regular cycle Ordered: 03/23/2024[facility] HealthcareComment on above:Ordered: 03/23/2024Hemoglobin A1c/Hemoglobin.total in BloodHemoglobin A1c Lab Routine Menorrhagia with regular cycle Ordered: 03/23/2024[facility] HealthcareComment on above:Ordered: 03/23/2024Hepatitis B virus core Ab [Presence] in SerumHEPATITIS B CORE ANTIBODY TOTAL Lab Routine Elevated LFTs 01/11/2025 1:48 PM EDTCleveland ClinicHepatitis B virus surface Ab [Presence] in SerumHEPATITIS B SURFACE ANTIBODY Lab Routine Elevated LFTs 01/11/2025 1:48 PM EDTCleveland ClinicHepatitis B virus surface Ag [Presence] in SerumHEPATITIS B SURFACE ANTIGEN Lab Routine Elevated LFTs 01/11/2025 1:48 PM EDUC Healthpatitis C virus Ab [Presence] in SerumHEPATITIS C ANTIBODY IA WITH CONFIRMATION Lab Routine Elevated LFTs 01/11/2025 1:48 PM [facility] End: 70-31-0787GDCB SLEEP APNEA TEST (HSAT)HOME SLEEP APNEA TEST (HSAT) Procedures Routine Somnolence, daytime Snoring 1 Occurrences starting 03/09/2022 until 3COhioHealth [facility]in [facility] Work Phone: comment on above:1 Occurrences starting 03/09/2022 until 03/09/2023HYDROGEN BREATH TEST B/OHYDROGEN BREATH TEST B/O Procedures Routine Diarrhea, unspecified type Abdominal pressure Ordered: 06/14/2024[facility] Work Phone: comment on above:Ordered: 06/14/2024Oxygen therapy [Minimum Data Set]Initiate Oxygen Therapy Protocol Respiratory Care Routine Daily until discontinued starting 10/07/2020[facility] Work Phone: comment on above:Daily until discontinued starting 10/07/2020atient EducationOhio State Health System Ctr Work Phone: Patient referralOhio State Health System Ctr Work Phone: End: 48-50-1084AdyeaqklfbzwoXZSGOXUOHTABP (PSG) Procedures Routine Somnolence, daytime Snoring 1 Occurrences starting 03/04/2022 until 03/04/2023[facility] Work Phone: Comment on above:1 Occurrences starting 03/04/2022 until 03/04/2023rothrombin time (PT) in Blood by Coagulation assayProtime-INR Lab Routine Menorrhagia with regular cycle Ordered: 03/23/2024[facility] Comment on above:Ordered: 03/23/2024THIN PREP TIS PAP AND HR HPV DNATHIN PREP TIS PAP AND HR HPV DNA Pathology and Cytology Routine Well woman exam with routine gynecological exam Ordered: 06/06/2024[facility] HealthcareComment on above: Ordered: 06/06/2024Thyrotropin [Units/volume] in Serum or PlasmaTSH Lab Routine Menorrhagia with regular cycle Ordered: 03/23/2024[facility] HealthcareComment on above:Ordered: 03/23/2024Thyroxine (T4) free [Mass/volume] in Serum or PlasmaT4, free Lab Routine Menorrhagia with regular cycle Ordered: 03/23/2024NON[facility] HealthcareComment on above:Ordered: 03/23/2024XR Thoracic spine [facility] Immunizations Immunization DateImmunizationNotesCare YwyguncuIgngmhwj35-73-2292GGRCP-23 vaccine, age 12+ yr, season (PFIZER-BIONTTopera)Lynne Ni MD Work Phone: [facility] CenterYzinbs50-87-1826JGYQN-78 mRNA Bivalent Booster (Pfizer)Gay De La Torre LOBSTERMAN-C Work Phone: [facility]01-03-2022COVID-19 mRNA, Comirnaty (Pfizer)Gay De La Torre LOBSTERMAN-C Work Phone: [facility]05-29-2021COVID-19 mRNA, Comirnaty (Pfizer)Gay De La Torre LOBSTERMAN-C Work Phone: [facility]05-08-2021COVID-19 mRNA, Comirnaty (Pfizer)Gay De La Torre LOBSTERMAN-C Work Phone: [facility] Payers DatePayer CategoryPayerPoly [id number] [facility] [id number] 2017Medicaid (Managed Care) [id number] Health InsuranceK[facility] Member Subscriber Plan / Payer (Effective 2017-Present) Name: Ariadna Haley Relation to Subscriber: Self Name: hugo Ariadna Torres Payer ID: Not on file Group ID: [id number] Type: Not on file Address: [address] [place] [id number] [facility] [id number] 2017-Present [address] [place] [id number] 2010MedicaidCARESOURCECARESOURCE MEDICAID CARESOURCE MEDICAID [id number] 2009-Present [phone] [address] [place] [address] [id number] 2010Medicaid [id number] 2.16840.1.172876.3.57[id number] 2.16840.1.942060.3.57[id number] 2.840.1.846366.3.57[id number] 2.840.1.826574.3.57[id number] 2.840.1.287703.3.57[id number] 2.840.1.369947.3.57[id number] 2.840.1.813281.3.57[id number] 2.840.1.795076.3.57[id number] 2.840.1.879397.3.57[id number] 2.840.1.030669.3.57[id number] 2.840.1.457708.3.57[id number] 2.840.1.807762.3.57[id number] 2.16840.1.887239.3.579.[id number] 2.840.1.219749.3.57[id number] 2.0.1.905882.3.579.[id number] 2..1.975174.3.579.[id number] 2.0.1.633814.3.579.2.[id number] 2..1.898204.3.579.2.713551-59-8345Fpmrafp6869428 2..1.727331.3.579.2.924924-31-8855Ukyiwol8952085 2..1.641876.3.579.2.537195-00-3753Tkjxnpm9155053 2..1.222240.3.579.2.492434-79-3811Ozmsfiw0810367 2..1.614754.3.57[id number] 2..1.887542.3.579.2.928732-83-1518Thgaprz7096965 2..1.720402.3.579.2.478916-03-9293Xgjqihs9066079 2..1.917594.3.57[id number] 2..1.381302.3.579.2.03264-32-0565Jjnfcxk9576624487119-43-4593Eeyfoud [id number] 2.0.1.039730.3.579.2.411Mfucyvv95044165 2.0.1.9[id number] 2.16.840.1.962535.3.579.2.531 [id number] 2.16.840.1.8[id number] 2.16.840.1.775851.3.579.2.269Dcgojji72502460 2.16.840.1.439460.3.579.2.531 [id number] 2.16.840.1.668291.3.579.2.531 Social History DateTypeDetailFacilityStart: 10-07-2020 End: 49-91-4220Jadithb smoking status NHISCurrent every day smokerAccess Hospital Daytontart: 10-07-2020 End: 44-28-7812Avgpxku use and exposureNever usedOhio State Harding HospitalStart: 10-07-2020 End: 81-45-0480Viacuac intakeLifetime non-drinker (finding)[employer] Phone: start: 39-68-7290Mzdglvv SDOH Alcohol Bzkwmaslo9Zzkmk Health Work Phone: start: 02-53-6373Tmp Assigned At BirthNot on [facility] Phone: start: 02-22-2022 End: 17-65-0032Jharpjib to SARS-CoV-2 (event)Not sureOhio State Harding HospitalStart: 00-85-0746Ciiczbn of tobacco useCigarette SmokerAccess Hospital Daytontart: 05-31-2014 End: 09-18-0076Pnxjgvydau smoked current (pack per day) - Hokuqicw1Gfdubucyf ClinicStart: 10-24-2021 End: 61-83-5855Bprnkch intakeCurrent non-drinker of alcohol (finding)[facility]: 10-14-2021 End: 52-70-3571Ffxnneng to SARS-CoV-2 (event)Unable to assessCh[facility] Start: 10-22-2022 End: 66-78-8239Jch Assigned At BirthAccess Hospital Daytontart: 59-40-7435Zqakf Depression Screening Axfywaeirj1Rgxtfiwpg ClinicStart: 07-25-4252Dekxjbt Comment Current smoker, everyday, 11-20 cigarettes/dayNONY HealthcareStart: 05-31-2023 Alcohol CommentCaffeine intake : > 4 cups per dayALTA VIEW [facility] HealthcareStart: 08-19-2016 End: 37-18-0006Ozpdbgw smoking status NHISSmoker (finding)[facility]: 51-78-0096Ast [facility]: 07-02[facility]2016 End: 10-11-6424TkrBeprni (finding)[facility]: 58-54-4781Yassch identityIdentifies as female gender (finding)[facility] Goals DatePatient GoalDesired Activity/State Functional Status XbgxWafdobiadrKivdtzXwavjbkp99-85-1926Wif you deaf, or do you have serious difficulty hearingNo 12/25/2014 11:14 AM Chichi Womack Ma [facility] [id number] you blind, or do you have serious difficulty seeing, even when wearing glassesNo 12/25/2014 11:14 AM Chichi Womack Ma [facility]08-04-2015Do you have serious difficulty walking or climbing stairsYes 12/25/2014 11:14 AM Chichi Womack Ma [facility]08-04-2015Do you have difficulty dressing or bathingYes 12/25/2014 11:14 AM Chichi W[facility]ack [id number] of a physical, mental, or emotional condition, do you have difficulty doing errands alone such as visiting a physician's office or shoppingNo 12/25/2014 11:14 AM Chichi Womack Ma [facility] Mental Status Ihea[id number] of a physical, mental, or emotional condition, do you have serious difficulty concentrating, remembering, or making decisionsNo 12/25/2014 11:14 AM Chichi Womack Ma [facility] Clinical Notes 05-31-2014 to 03-14-2025 Note Date & [id number] History of Present illness Narrative* Stacy Madrid [...] with abscess/Referralfrom Dr. Gay De La Torre[facility]. 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 Ongoing [...] hydroxychloroquine, steroids pred 10 mg po daily ([facility]) Hx of 12/2024: Tb and HBV and [...] Insecurity: No Food Insecurity (04/06/2024) Received from [facility] Hunger Screening Within the past 12 months [...] Personal Safety: Unknown (07/15/2023) [facility]ceived from [facility] Safety & Environment Fear of Current [...] - Patient has follow up by Rheumatology [facility] in his on prednisone, hydroxychloroquine and Benlysta Opportunistic infection screening - Patient did have hepatitis-C, hepatitis-B and TB testing. Would recommend routine checking through her rapid extractor operator History of low IVIG - Follow up [...] required an extensive review of her history gamc-zb-xbkf aswell as through available records although further records are needed. Thank you for this consultation. Please note Portions of this note utilized Styky dictation software, please excuse any typographical or [...] daily., Disp: , Rfl: Ergocalciferol 1.25 MG (03633 UT) capsule, Take 1 capsule by mouth [...] 2 times daily., Disp: , Rfl: Nystatin 897884 UNIT/ML oral suspension, Swish and spit 4 [...] Other., Disp: , Rfl: documented in this [facility]10-08-2025 History of Present illness Narrative* Terence [...] and also on prednisone. She follows with [facility] rheumatology and also with [facility] sawyer tology/oncology. She states she does have [...] Chronic laryngopharyngitis COVID-19 vaccine administered x 2 ([employer]) Difficulty walking Fatigue Fibromyalgia, primary GERD (gastroesophageal [...] her dressing changes at documented in this encounterPemiscot Memorial Health [id number] NoteFayette County Memorial Hospital10-01-2025 NoteFayette County Memorial Hospital09-24-2025 History of Present illness Narrative* [...] treatment with ILK today. ILK today, see [facility] for details. Consent: The risks and benefits of intralesional kenalog were discussed prior to the procedure. Specifically, the risk of skin atrophy was reviewed. It was also emphasized that multiple treatments may be necessary. Verbal consent was obtained from the patient/parent. Method: See [facility] for details on administration. 0.1 ml [...] Next Visit: as scheduled documented in this encounterPemiscot Memorial Health SystemsSfmbnqrhgw15-69-0625 NoteFayette County Memorial Hospital09-03-2025 History of Present illness Narrative* Elena Alfonso RN - 01/24/2025 3:40 PM EDT Pt did not receive B12 injection today. Pt called & agreeable to receive it when she returns in2 weeks for her Benlysta infusion. Pharmacy aware and moving date. Elena Alfonso RN documented in this encounterChillicothe [facility]08-28-2025 Telephone encounter Note * Telephone Encounter - Merry Chairez RN - 01/18/2025 5:09 PM EDT MC message read by patient . [facility]08-28-2025 Miscellaneous Notes* Telephone Encounter - Merry Chairez [...] IV, start prior authorization documented in this encounterChillicothe [facility] Center08-28-2025 Telephone encounter Note * Telephone Encounter - Lynne Ni MD - 01/18/2025 3:34 PM EDT Please Call patient if Click Contacthart note not read to review results/released to [...] sq benlysta to IV, start prior authorization [facility]08-27-2025 Chief complaint+Reason for visit Narrative* Chief Complaint [...] :50am Sacroiliitis March 13, 2025 8 :50am [facility] Work Phone: 1(250) 131-121708-27-2025 Evaluation note* Diagnosis Onset Date Resolution Status Admit Date Lumbosacral spondylosis acuteAugust 2024 10:29amOther chronic painacuteAugust 2024 10:29am SacroiliitisacuteAugust 2024 10:29amLumbosacral spondylosisacuteSeptember 2024 9:23amMid back painacuteSeptember 2024 9:23amOther chronic pain acuteSeptember 2024 9:23amSacroiliitisacuteSeptember 2024 9:23am Abdominal pressureacuteOctober 2024 1:29pmDyspepsiaacuteOctober 2024 1:29pmFatty liveracuteOctober 2024 1:29pmGERD (gastroesophageal reflux disease)acuteOctober 2024 1:29pmLumbosacral spondylosisacuteOct2024 8:50amOther chronic painacuteOctober 2024 8:50amSacroiliitisacute October 2024 8:50am [facility] Work Phone: 1(911) 959-958907-24-2025 NoteHNO ID: [id number] Author: JHONATHAN CONDE RN Service: ? Author Type: Registered Nurse Type: Progress Notes Filed: 12/14/2024 16:36 Note Text: Ran over 2 hours per patient request.[facility]07-24-2025 History of Present illness Narrative* Jhonathan Conde RN - 12/14/2024 3:58 PM EDT Ran over 2 hours per patient request. 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 [employer] SENDING CMN: Josh SIGNED AND DATED CMN, FAXED TO DME & CONFIRMATION PAGE RECEIVED: 12.14.2024 documented in this encounterChillicothe Va Medical Center07-22-2025 Evaluation note* Diagnosis Onset Date Resolution Status [...] 2024 1:29pmGERD (gastroesophageal reflux disease)acuteOctober 2024 1:29pm [facility] Work Phone: 1(982) 705-472207-10-2025 Evaluation note* Diagnosis Onset Date Resolution Status Admit Date Lumbosacral spondylosis acuteJuly 2024 9:03amOther chronic painacuteJuly 2024 9:03am SacroiliitisacuteJuly 2024 9:03amAbdominal burning sensation in left upper quadrantacuteJuly 2024 10:42amAbdominal massacuteJuly 2024 10:42am Abdominal painacuteJuly 2024 10:42amBloatingacuteJuly 2024 10:42am ConstipationacuteJuly 2024 10:42amDyspepsiaacuteJuly 2024 10:42am Lumbosacral spondylosisacuteAugust 2024 10:29amOther chronic painacute [place] 2024 10:29amSacroiliitisacuteAugust 2024 10:29amLumbosacral spondylosisacuteSeptember 2024 9:23amMid back painacuteSeptember 2024 9:23amOther chronic painacuteSeptember 2025 9:23amSacroiliitisacute February 14, 2025 9:23am [facility] Work Phone: 1(804) 509-760607-10-2025 Telephone encounter Note* Telephone Encounter - Enma Hamm RN - 11/30/2024 8:36 AM EDT Pt updated on results. Will continue with IVIG, as previously scheduled. Denied further needs or concerns at this time. Enma Hamm RN [facility]07-10-2025 Miscellaneous Notes* Telephone Encounter - Enma Hamm RN - 11/30/2024 8:36 AM EDT Pt updated on results. Will continue with IVIG, as previously scheduled. Denied further needs or concerns at this time. Enma Hamm RN documented in this encounterChillicothe Va Medical Center07-09-2025 NoteFayette County Memorial Hospital07-09-2025 History of Present illness Narrative* Vaibhav Carvalho APRN.CLINICAL RESEARCH SPEC - 11/29/2024 8:43 AM EDT Images from the original note were not included. NAME: TeraAriadna [facility] NO.: [id number] DATE OF SERVICE: .November 29, 2024 (Deven) [...] to monitor; no current intervention required per [facility] recommendations. 7. Pre-diabetes (R73.03) Borderline [...] requiring a recent corticosteroid injection by her personal lines account executive. She experiences intermittent fatigue, shortness of breath, [...] lower lip done 2 days ago at [facility] - awaiting results. B12 helps [...] injections. Shefollows with multiple doctors including and inside meter tester, rapid extractor operator, personal lines account executive and PCP. She has been told they [...] subcutaneously one time a week. Per PCP bqvtvxzfynGVQMV-vhypgr-ljovhibog (BMX 1:1:1) 1:1:1 liqd Take 5 mL [...] (Crohn's [Other]) Mother . Vaibhav Carvalho APRN, LOBSTERMAN-C, [facility] On[facility] Services Provided at: [place], [place] CC: Manuel Ferris MD [address] [facility] [id number] documented in this encounterChillicothe Va Medical Center07-03-2025 History of Present illness Narrative* [...] Next Visit: as scheduled documented in this encounterPemiscot Memorial Health SystemsSnhfgjbhjn42-13-1848 Telephone encounter Note* Telephone Encounter - Renea Schneider MA - 11/20/2024 12:00 PM EDT Patient coming in for treatment visit Wednesday11/29/24. Please add lab orders. thanks. Renea Schneider MA [facility]06-23-2025 Chief complaint+Reason for visit Narrative* [...] :29am Sacroiliitis January 17, 2025 10 :29am [facility] Work Phone: 1(275) 480-676506-23-2025 Chief complaint+Reason for visit Narrative * Chief [...] :29am Sacroiliitis January 17, 2025 10 :29am [facility] Work Phone: 1(911) 934-812206-23-2025 Evaluation note* Diagnosis Onset Date Resolution Status Admit Date Lumbosacral spondylosis acuteJune 2024 11:15amOther chronic painacuteJune 2024 11:15am SacroiliitisacuteJune 2024 11:15amLumbosacral spondylosisacuteJuly 2024 9:03amOther chronic painacuteJuly 2024 9:03amSacroiliitisacuteJuly 2024 9:03amAbdominal burning sensation in left upper quadrantacuteJuly 2024 10:42amAbdominal massacuteJuly 2024 10:42amAbdominal painacute Day 2024 10:42amBloatingacuteJuly 2024 10:42amConstipationacuteJuly 2024 10:42amDyspepsiaacuteJuly 2024 10:42amLumbosacral spondylosis acuteAugust 2024 10:29amOther chronic painacuteAugust 2024 10:29am SacroiliitisacuteAugust 2024 10:29am [facility] Work Phone: 1(601) 812-538105-17-2025 History of Present illness Narrative* Lynne Ni [...] visit. Either the patient or their legal food service representative has been informed of the [...] easures, may consider osteoporosis treatment if on terminal operations supervisor steroids/abnormal bmd, take vitamin D script once [...] metoprolol for POTs, avoid aggravating triggers, terminal operations supervisor pain recommendations per primary care provider/pain clinic/patient [...] measures, may consider osteoporosis treatment if on care home steroids/abnormal bmd, take vitamin D script once [...] metoprolol for POTs, avoid aggravating triggers, terminal operations supervisor pain recommendations per primary care provider/pain clinic/patient [...] see GI and Infectious disease soon. [facility] her have diarrhea. 08/31/23 high wbc [...] measures, may consider osteoporosis treatment if on care home steroids/abnormal bmd, take vitamin D script [...] metoprolol for POTs, avoid aggravating triggers, terminal operations supervisor pain recommendations per primary care provider/pain clinic/patient [...] neurology/on metoprolol for POTs, avoid aggravating triggers, care home pain recommendations per primary care provider/pain [...] Due for eye exam. Labs sent to [facility]/completed in 06/2021 (no results faxed to office, [...] COVID-19 original vaccine, age 12+ yr, monovalent (Sogou - PURPLE TOP) 09/28/2020 10/19/2020 05/26/2021 COVID-19 vaccine, age 12+ yr ([employer]ou COMIRNATY) 02/23/2023 COVID-19 vaccine, age 12+ yr, bivalent (Sogou) 02/08/2022 Pneumovax no Flu shot no Tetanus [...] (33);NL cbc, cmp, negative hla b27; Outside [employer] 06/2021 low vitamin D 16, vitamin b12-307;high [...] Z79.899 Long-term use of high-risk medication Z79.52 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 M79.641, M79.642 [...] ures, may consider osteoporosis treatment if on terminal operations supervisor steroids/abnormal bmd, take vitamin D script once [...] metoprolol for POTs, avoid aggravating triggers, terminal operations supervisor pain recommendations per primary care provider/pain clinic/patient [...] (200mg) daily with a meal Please see manager nicu every 6-12months while on Hydroxychloroquine. reStart azathioprine [...] your toes, sit-ups, using row machine terminal operations supervisor pain recommendations per primary care provider/pain clinic [...] video & audio (virtual) or phone or fydb-fh-gwwz patient care, completing clinical documentation, obtaining and/or [...] Workers' Compensation? No Do you need an seafood process worker? No [facility] MYCHART ZOOM MESSAGE Question 10/06/2024 [...] my health Strongly Agree documented in this encounterChillicothe Va Medical Center05-17-2025 NoteFayette County Memorial Hospital05-17-2025 Instructions* Patient Instructions* Lynne Ni [...] (200mg) daily with a meal Please see manager nicu every 6-12months while on Hydroxychloroquine. azathioprine daily [...] touching your toes, sit-ups, using row machine care home pain recommendations per primary care provider/pain [...] your usual activities immediately. documented in this encounterChillicothe Va Medical Center05-16-2025 Telephone encounter Note * Telephone Encounter - Beatriz Sanchez LPN - 10/06/2024 1:46 PM EDT VM left that below message forwarded to her MC. Requested return call if unable to view message. [facility]05-16-2025 Miscellaneous Notes* Telephone Encounter - Beatriz Sanchez LPN - 10/06/2024 1:46 PM EDT VM left that below message forwarded to her MC. Requested return call if unable to view message. * Telephone Encounter - Lynne Ni MD - 10/06/2024 1:02 PM EDT Please Call patient if MyChart note not read to review results/released to My Chart if tests completed at [facility]: Mildly glucose, one borderline inflammatory [...] accordingly. Lynne Ni MD documented in this encounterChillicothe Va Medical Center05-16-2025 Telephone encounter Note * Telephone [...] above. Please process accordingly. Lynne Ni MD [facility]04-30-2025 NoteFayette County Memorial Hospital04-30-2025 Note [facility]04-29-2025 History of Present illness Narrative* Deborah Arroyo, [facility] - 09/19/2024 10:00 AM EDT Patient [...] GENETIC TESTING: None. SOCIAL HISTORY: Lives in [place], [place] with her and daughter. 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 - Partner's ethnicity: not applicable. - No known -Pakistani, Mediterranean, /Finnish, Botswanan-Slovak/Cajun, or Ashkenazi Catholic ancestry unless noted above. - Parental consanguinity: [...] via the connective tissue disorder panel at [facility] for Ariadna's daughter. Follow up will be [...] greater than 50% of which was spent daxj-eb-dqtn counseling. This plan is being carried out per Dr. Lance's recommendations. Deborah Arroyo MS, [facility] Licensed Genetic Counselor [facility] CC: Dr. Last Lance CC: Ariadna Haley Via [employer] documented in this encounterChillicothe Va Medical Center04-29-2025 NoteFayette County Memorial Hospital04-29-2025 NoteF[facility]04-29-2025 History of Present illness Narrative* Ny Lance MD - 09/19/2024 7:46 AM EDT Images from the original note were not included. Department of Medical Genetics and Genomics OUTPATIENT NEW VISIT NOTE Recording using [employer] software for draft documentation of the visit was discussed with the patient/authorized food service representative; all questions welcomed and answered. Patient/authorized food service representative agreed to proceed Patient Name: [...] has a history of using a palate strategic alliances manager. 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 Per PCP zfnzbncjjrUEZYN-nfqotw-auvorsyxu (BMX 1:1:1) 1:1:1 liqd Take 5 mL [...] OF ablation SOCIAL HISTORY: - Lives in [place], [place] with her and daughters. - Highest level of education: High school. 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 Paternal - . - No known -Pakistani, Mediterranean, /Finnish, Ashkenazi Catholic, Botswanan-Slovak/Cajun, or Taoist ancestry unless noted above. - Parental consanguinity: [...] was collected by Deborah Arroyo MS, [facility] at the patient's separate genetic counseling encounter. The pedigree will be scanned into [employer]. This information was reviewed with thefamily and [...] Management For Physiotherapists by Katarina Reza (Eds.), [facility], 2003, ISBN [id number]; Examination and Treatment of a Patient with [...] symptoms when present, recommending follow-up with a water softener installer. 2. Chronic pain syndrome (G89.4) Chronic joint [...] 87 minutes was spent with patient for ypvu-ap-hmzy evaluation, discussion of genetic differential diagnoses, management plan, counseling, chart review, documentation and coordination of care. Portions of family history were obtained by Deborah Arroyo MS, [facility], which were reviewed with family and edited as necessary. All questions were answered to the best of my knowledge. Contact information has been provided to the patient. Ny Lance MD Staff Family Advocate Department of Medical Genetics and Genomics (DMGG) [facility] Appointments: [facility] CC: Deborah Arroyo, MS, [facility] Ariadna Haley (via [employer]) [address] [facility] [address] Lynne Ni MD CC to PCP via fax: Manuel Ferris [address] [place] [address] documented in this encounterChillicothe Va Medical Center04-28-2025 Telephone encounter Note * Telephone Encounter - Lynne Ni MD - 09/18/2024 4:52 PM EDT Notify patient medication sent as requested Thank you. Patient's request for medication is as follows: Requested Prescriptions Pending Prescriptions Disp Refills belimumab (BENLYSTA) 200 mg/mL auto-injector 12 mL 3 Sig: Inject 200mg (1 pen) subcutaneously once weekly Prescription(s) as above. Please process accordingly. Lynne Ni MD [facility]04-28-2025 Miscellaneous Notes* Telephone Encounter - [...] (1 pen) subcutaneously once weekly Patient prefers: [facility] Thank you! Maria Esther Pichardo, PharmD Clinical Pharmacist, [employer] [facility] ; Pool: P [facility] Pool #: [id number] documented in this encounterChillicothe Va Medical Center04-28-2025 Telephone encounter Note * Telephone Encounter - Macarena Sanchez - 09/18/2024 4:03 PM EDT Patient will be calling to reschedule her IV IG and benlysta. She needs to find a rotary envelope machine operator and will call back with the dates that she will be available. [facility]04-28-2025 Miscellaneous Notes* Telephone Encounter - Macarena Sanchez - 09/18/2024 4:03 PM EDT Patient will be calling to reschedule her IV IG and benlysta. She needs to find a rotary envelope machine operator and will call back with the dates that she will be available. documented in this encounterChillicothe Va Medical Center04-28-2025 Telephone encounter Note * Telephone [...] (1 pen) subcutaneously once weekly Patient prefers: [facility] Thank you! Maria Esther Pichardo, PharmD Clinical Pharmacist, [employer] [facility] ; Pool: P [facility] Pool #: [id number] [facility]04-22-2025 Telephone encounter Note* Telephone Encounter - Karina Pino - 09/12/2024 2:35 PM EDT Patient has been scheduled at [facility]04-22-2025 Miscellaneous Notes* Telephone Encounter - Karina Pino - 09/12/2024 2:35 PM EDT Patient has been scheduled at [facility] * Telephone Encounter - Sherrie Cortes - [...] below scheduling for the drug. Sandhya Hicks [facility] minutes ago (11:20 AM) LS Please schedule her every 2 weeks for 3 doses, then every 4 weeks for Benlysta. Sandhya Vicente Laura [facility]27 minutes ago (11:18 AM) LS Auth [...] to Rheum provider. Anahi Becerril RN nurse services account manager: patient would like to know if she can bring her 8 year old to treatmentsin the summer. Basia Samuel RN documented in this encounterChillicothe Va Medical Center04-22-2025 Telephone encounter Note * Telephone [...] daughter recommendations and patient informed. Sherrie Cortes [facility]04-21-2025 Telephone encounter Note* Telephone Encounter [...] week after her SQ dose. Sandhya Vicente [facility]04-17-2025 Telephone encounter Note* Telephone Encounter - Lynne Ni MD - 09/07/2024 12:52 PM EDT Please start prior authorization for IV benlysta Signed therapy plan with loading doses if approved by insurance. May schedule 1week after last sq injection benlysta pen if approved. Thank you [facility]04-17-2025 Telephone encounter Note* Telephone Encounter - Enma Hamm RN - 09/07/2024 9:04 AM EDT Results discussed with pt. She is set for IVIG 10/04/24. She denies further questions needs or concerns at this time. Enma Hamm RN [facility]04-17-2025 Miscellaneous Notes* Telephone Encounter - Enma Hamm RN - 09/07/2024 9:04 AM EDT Results discussed with pt. She is set for IVIG 10/04/24. She denies further questions needs or concerns at this time. Enma Hamm RN documented in this encounterChillicothe Va Medical Center04-16-2025 Evaluation note* Diagnosis Onset Date Resolution Status Admit Date Lumbosacral spondylosis acuteApril 2024 3:42pmOther chronic painacuteApril 2024 3:42pm SacroiliitisacuteApril 2024 3:42pmLumbosacral spondylosisacuteJune 2024 11:15amOther chronic painacuteJune 2024 11:15amSacroiliitisacuteJune 2024 11:15am [facility] Work Phone: 1(393) 639-841304-16-2025 Evaluation note* Diagnosis Onset Date Resolution Status Admit Date Lumbosacral spondylosis acuteApril 2024 3:42pmOther chronic painacuteApril 2024 3:42pm SacroiliitisacuteApril 2024 3:42pmLumbosacral spondylosisacuteJune 2024 11:15amOther chronic painacuteJune 2024 11:15amSacroiliitisacuteJune 2024 11:15amLumbosacral spondylosisacuteJuly 2024 9:03amOther chronic painacuteJuly 2024 9:03amSacroiliitisacuteJuly 2024 9:03am [facility] Work Phone: 1(889) 979-354504-16-2025 Telephone encounter Note* Telephone Encounter - Basia Samuel RN - 09/06/2024 4:20 PM EDT Patient has requested to switch from Benlysta injections to infusions. Will forward to Rheum provider. Anahi Becerril RN nurse services account manager: patient would like to know [facility] she [facility] 8 [facility]. Basia Samuel RN [facility]04-16-2025 History of Present illness Narrative* Vaibhav Carvalho APRN.CLINICAL RESEARCH SPEC - 09/06/2024 9:00 AM EDT Images from the original note were not included. NAME: Ariadna Haley [facility] NO.: [id number] DATE OF SERVICE: September 06, 2024 (Deven) [...] lower lip done 2 days ago at [facility] - awaiting results. B12 helps [...] injections. Shefollows with multiple doctors including and inside meter tester, rapid extractor operator, personal lines account executive and PCP. She has been told they [...] THREE TIMES A DAY^Disp: 135 tablet^Rfl: 1 qsnkpekbtnHSUXE-wxmgrk-lmcwrhecq (BMX 1:1:1) 1:1:1 liqd^Take 5 mL by [...] (Crohn's [Other]) Mother . Vaibhav Carvalho APRN, LOBSTERMAN-C, OCN Hematology [facility] Oncology Services Provided at: [place], [place] CC: Manuel Ferris MD [address] [facility] [address] documented in this encounterChillicothe Va [facility] Center04-16-2025 NoteF[facility]04-14-2025 History of Present illness Narrative* Gordo Barfield MD - 09/04/2024 3:20 PM EDT Subjective Patient ID: Ariadna Haley is a 43 y.o. female who presents for Thyroid Nodule (Follow up ultrasound [facility] 08/24/24) Thyroid US shows a [id number] left inf pole TR4 nodule. Radiology notes [...] disease 03/05/2021 Hair loss 03/05/2021 Hyperlipidemia ([facility]/HCC) 05/31/2014 [facility] current use of systemic steroids 02/04/2023 Long-term use of high-risk medication 06/15/2022 Long-term use of Plaquenil 03/05/2021 LPRD (laryngopharyngeal reflux disease) 07/06/2023 Megaloblastic anemia due to vitamin B12 deficiency 03/04/2022 Myalgia 07/06/2023 Obesity, Class III, BMI 40-49.9 (morbid obesity) (CMS/[facility]) 09/07/2022 Obstructive sleep apnea syndrome 05/20/2022 Oral lesion 07/06/2023 Pain, hip 07/06/2023 Rash and nonspecific skin eruption 03/05/2021 Steroid-induced osteoporosis ([facility]/HCC) 02/04/2023 Somnolence, daytime 05/20/2022 Secondary osteoarthritis of multiple sites 03/05/2021 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 02/04/2023 Swelling of lymph nodes 03/05/2021 Vitamin D deficiency 03/06/2021 Vitamin B12 deficiency 05/31/2014 Pure hypercholesterolemia, unspecified (CMS/[facility]) 08/10/2023 Hoarse 08/10/2023 Thyroid nodule ([facility]) 08/10/2023 Shortness of breath 07/13/2023 Paroxysmal supraventricular tachycardia ([facility]) 07/13/2023 PAC (premature atrial contraction) 07/13/2023 [...] resistance 03/07/2024 Lupus erythematosus 04/06/2024 Sacroiliitis ([facility]) 04/06/2024 Resolved Ambulatory Problems Diagnosis Date Noted No Resolved Ambulatory Problems Past Medical History: Diagnosis Date Cervical lymphadenopathy COVID-19 vaccine administered Difficulty walking Fatigue Fibromyalgia, primary History of removal of cyst 2012 HTN (hypertension) (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) Laryngopharyngeal reflux disease Lupus Nonscarring hair loss, unspecified Nontoxic goiter, unspecified ([facility]) Nontoxic single thyroid nodule ([facility]) Numbness Oral thrush Sleep apnea Vitamin [...] % gel ergocalciferol (Vitamin D2) 1.25 MG (94782 UT) capsule Take 50,000 Units by mouth [...] for more aggressive care documented in this encounterPemiscot Memorial Health [id number] Telephone encounter Note* Telephone Encounter - Blank Kimball - 09/02/2024 10:28 AM EDT Called and spoke with patient, patient is scheduled for a VV on 10/07/24 at 8:00am. Patient stated will complete labs a walk in [facility]04-12-2025 Miscellaneous Notes* Telephone Encounter - [...] diagnoses: Vitamin D deficiency documented in this encounterChillicothe Va Medical Center04-11-2025 Telephone encounter Note * Telephone [...] above. Please process accordingly. Lynne Ni MD [facility]04-11-2025 Telephone encounter Note* Telephone Encounter [...] Ni MD Assoc. diagnoses: Vitamin D deficiency [facility]04-07-2025 Telephone encounter Note* Telephone Encounter - Renea Schneider MA - 08/28/2024 11:04 AM EDT Do you want labs? Patient coming in Wednesday09/06/24 for follow up treatment. Thanks, Renea Schneider MA [facility]04-01-2025 Miscellaneous Notes* Telephone Encounter - Renea Schneider MA - 08/28/2024 11:04 AM EDT Do you want labs? Patient coming in Wednesday09/06/24 for follow up treatment. Thanks, Renea Schneider MA documented in this encounterChillicothe Va Medical Center04-01-2025 Miscellaneous Notes* Telephone Encounter - Renea Schneider MA - 11/20/2024 12:00 PM EDT Patient coming in for treatment visit Wednesday11/29/24. Please add lab orders. olu. Renea Schneider MA documented in this encounterChillicothe Va Medical Center03-27-2025 NoteFayette County Memorial Hospital03-18-2025 Telephone encounter Note* Telephone Encounter [...] and patient is aware. Basia Samuel RN [facility]03-18-2025 Miscellaneous Notes* Telephone Encounter - [...] aware. Basia Samuel RN documented in this encounterChillicothe Va Medical Center03-18-2025 NoteFayette County Memorial Hospital03-18-2025 History of Present illness Narrative* Basia Samuel RN - 08/08/2024 9:03 AM EDT Patient states that she spoke with provider and she will defer IV iron for now, she is taking oral iron and will have labs rechecked in 1 month Basia Samuel RN documented in this encounterChillicothe Va Medical Center03-05-2025 History of Present illness Narrative* [...] lupus being treated by rheumatology at the [facility] on steroids, Plaquenil and monoclonal antibody [...] , Rfl: ergocalciferol (Vitamin D-2) 1.25 MG (62023 UT) capsule, Take 1 capsule (50,000 Units) [...] exam, discussion and plan. documented in this [facility] Work Phone: 1(141) 284-662803-05-2025 Instructions* Patient Instructions* Aissatou Hanson RN - [...] time of your visit. documented in this [facility] Work Phone: 1(174) 827-518303-04-2025 History of Present illness Narrative* Bernabe English [...] ointment bid. On Plaquenil and Benlysta from rapid extractor operator and started IVIG from director toxicology. Follow up Diagnosis: Hidradenitis Location: thighs Last [...] given frequent flares of thrush. Start Nystatin 620462 unit suspension qid x 14 days. Recommended [...] not swallow it. Related Medications nystatin (Mycostatin) 659630 UNIT/ML suspension Take 4 mL (400,000 Units) [...] is needed. Instructed to follow up with COLLECTOR OF AQUARIUM SPECIMENS for further work up. Next Visit: 1 year documented in this encounterPemiscot Memorial Health [id number] History of Present illness Narrative* Luna Emanuel [...] been reviewed prior to dispensing the medication. Well Drill Operator Helper Cable Tool Assessment Patient confirmed: Yes Med/dose confirmed: Yes Supplies needed: No supplies needed Missed doses: No Copay amount: 0 Payment confirmed: Yes Delivery method: FedEx Signature required: Waived on patient request Delivery address: [address] [place] [address], [facility] [address] Delivery date: 07/27/24 Questions or concerns for the pharmacist?: No Did you have any side effects believed to be related to this medication, that resulted in hospitalization?: No Current Outpatient Medications on File Prior to Visit Medication Sig gjpjjbgvmgJSJQT-bpbmvp-xtkukystk (BMX 1:1:1) 1:1:1 liqd Take 5 mL [...] facility-administered medications on file prior to visit. [facility] RX SPECIALTY CLINICAL ASSESSMENT - INFLAMMATORY [...] longer tolerated. Luna Emanuel documented in this encounterChillicothe Va Medical Center03-04-2025 NoteFayette County Memorial Hospital02-27-2025 NoteHNO ID: [id number] Author: ALHAJI VICTORIA, DO Service: ? Author Type: Physician Type: Progress Notes Filed: 07/21/2024 13:05 Note Text: VIRTUAL VISIT PROGRESS NOTE This is a virtual visit using [employer] Video Visit. It required patient-provider interaction for the medical decision making as documented below. I have communicated my name and active licensure. The patient's identity and physical location were verified at the time of this visit. Either the patient or their legal food service representative has been informed of the [...] of 18 Current Outpatient Medications Medication Sig mrxxkbvlerDZUOG-ubpwaa-sqrjbyohm (BMX 1:1:1) 1:1:1 liqd Take 5 mL [...] Hospital02-27-2025 History of Present illness Narrative* Alhaji Victoria DO - 07/20/2024 11:41 AM EST VIRTUAL VISIT PROGRESS NOTE This is a virtual visit using [employer] Zoom Video Visit. It required patient- provider interaction for the medical decision making as documented below. I have communicated my name and active licensure. The patient's identity and physical location wereverified at the time of this visit. Either the patient or their legal food service representative has been informed of the [...] of 18 Current Outpatient Medications Medication Sig ungepgneqvBPRFV-bxzdyt-wduqertjz (BMX 1:1:1) 1:1:1 liqd Take 5 mL [...] on the R. The patient or authorized food service representative has agreed to proceed with [...] axillary nodule which is being followed by sampler radioactive waste. Through shared decision making with the patient, [...] DO July 21, 2024 documented in this encounterChillicothe Va Medical Center02-26-2025 [place] [address] Pain Management Procedure Note Signed Patient: Ariadna Haley MR#: [id number] : 1980 Acct:[id number] Age/Sex: 43 / F Adm Date: 5 Loc: Room: Type: [facility] Attending Dr: Adolfo Kang MD Copies [...] MD 07/19/24 1104 Signed By: 07/19/24 1134 [facility]02-19-2025 Instructions* Patient Instructions* Marky Gasca PA-C - 07/12/2024 2:33 PM EST Alginate therapy (Reflux Raft, Reflux Gourmet) documented in this encounterChillicothe Va Medical Center02-19-2025 NoteFayette County Memorial Hospital02-19-2025 History of Present illness Narrative* Marky Gasca PA-C - 07/12/2024 2:14 PM EST Images from the original note were not included. [facility] [place] [facility] NOTE CC: Ariadna Haley is a [...] Current medication(s): Current Outpatient Medications Medication Sig awnitrvfhwQVTPX-fmirxr-xoyefxktw (BMX 1:1:1) 1:1:1 liqd Take 5 mL [...] Level: 3 - Low documented in this encounterChillicothe Va Medical Center02-17-2025 Evaluation note* Diagnosis Onset Date Resolution Status Admit Date Lumbosacral spondylosis acuteFebruary 2024 3:16pmOther chronic painacuteFebruary 2024 3:16pm SacroiliitisacuteFebruary 2024 3:16pm [facility] Work Phone: 1(414) 585-196302-17-2025 Evaluation note* Diagnosis Onset Date Resolution Status Admit Date Lumbosacral spondylosis acuteFebruary 2024 3:16pmOther chronic painacuteFebruary 2024 3:16pm SacroiliitisacuteFebruary 2024 3:16pmLumbosacral spondylosisacuteMarch 2024 3:40pmOther chronic painacuteMarch 2024 3:40pmSacroiliitisacute March 2024 3:40pm [facility] Work Phone: 1(826) 943-890302-17-2025 Telephone encounter Note* Telephone Encounter - Krisat Braswell MA - 07/10/2024 7:28 AM EST Pt was notified via . [facility]02-17-2025 Miscellaneous Notes* Telephone Encounter - Krista Fonseca MA - 07/10/2024 7:28 AM EST Pt was notified via . * Telephone Encounter - Lynne Ni MD - 07/09/2024 3:48 PM EST Please Call patient if MyChart note not read to review results/released to My Chart if tests completed at [facility]: Mildly high normal wbc, glucose, [...] accordingly. Lynne Ni MD documented in this encounterChillicothe Va Medical Center02-16-2025 Telephone encounter Note * Telephone [...] above. Please process accordingly. Lynne Ni MD [facility]02-06-2025 History of Present illness Narrative* [...] been reviewed prior to dispensing the medication. Well Drill Operator Helper Cable Tool Assessment Patient confirmed: Yes Med/dose confirmed: Yes Supplies needed: No supplies needed Missed doses: No Estimated days supply on hand: 1 Copay amount: 0 Payment confirmed: Yes Delivery method: FedEx Signature required: Waived on patient request Delivery address: [address] [place] [address] Delivery date: 07/05/24 Questions or concerns for [...] facility-administered medications on file prior to visit. [facility] RX SPECIALTY CLINICAL ASSESSMENT - INFLAMMATORY [...] longer tolerated. Luna Emanuel documented in this encounterChillicothe Va Medical Center02-06-2025 NoteFayette County Memorial Hospital01-31-2025 Telephone encounter Note* Telephone Encounter - Krista Fonseca MA - 06/23/2024 8:27 AM EST Pt has been notified via [employer]. [facility]01-31-2025 Miscellaneous Notes* Telephone Encounter - Krista Fonseca MA - 06/23/2024 8:27 AM EST Pt has been notified via [employer]. * Telephone Encounter - Lynne Ni MD [...] accordingly. Lynne Ni MD documented in this encounterChillicothe Va Medical Center01-30-2025 Telephone encounter Note * Telephone [...] above. Please process accordingly. Lynne Ni MD [facility]01-29-2025 Telephone encounter Note* Telephone Encounter - Sherrie Cortes - 06/21/2024 2:10 PM EST Thanks for the clarification! I didn't schedule the patient yet for Iron because of the question below so we are all good. Thank you! Sherrie Cortes [facility]01-29-2025 Miscellaneous Notes* Telephone Encounter - [...] we will recheck. thanks documented in this encounterChillicothe Va Medical Center01-29-2025 Telephone encounter Note * Telephone [...] is aware you will call if needed. [facility]01-29-2025 Telephone encounter Note* Telephone Encounter - Vaibhav Carvalho APRN.CNP - 06/21/2024 1:07 PM EST Ok that is fine she can try oral iron Ferrous sulfate 325 mg every other day. Ok to keep her next appointment and we will recheck. thanks [facility]01-28-2025 Telephone encounter Note* Telephone Encounter - Sherrie Cortes - 06/20/2024 8:38 AM EST Left another message for patient. Sent MyChart to call back to schedule infusions when she's ready to schedule and provided phone number. Sherrie Cortes [facility]01-28-2025 Miscellaneous Notes* Telephone Encounter - [...] callback with any questions. documented in this encounterChillicothe Va Medical Center01-24-2025 Telephone encounter Note * Telephone Encounter - Sherrie Cortes - 06/16/2024 3:32 PM EST Call placed to patient, no answer. Left detailed message to call back to schedule for Venofer. Sherrie Cortes [facility]01-24-2025 Telephone encounter Note* Telephone Encounter - Vaibhav Carvalho APRN.CNP - 06/16/2024 12:26 PM EST Called patient and left a message regarding iron infusions. I did inform patient that she is low oniron and we can replace with IV infusion. Will have the office call to schedule. Encouraged to callback with any questions. [facility]01-23-2025 Telephone encounter Note* Telephone Encounter [...] Pt had recent mammogram that was negative [facility] [id number] Miscellaneous Notes* Telephone Encounter - KELVIN Cabrera [...] mammogram that was negative documented in this encounterPemiscot Memorial Health [id number] History of Present illness Narrative* Iraida Pate APRN.CLINICAL RESEARCH SPEC - 06/14/2024 10:43 AM EST Glucose - SIBO CPT 48914 Hydrogen Breath Test Ariadna Haley 1980 June 14, 2024 Referring Physician: Bandar Portillo NP Indication: NSG TEST INDICATIONS: Diarrhea R19.7, Abdominal Pressure R10.9 Weight: 275 lbs Location: [facility] Duration of Test: 2 hrs Hydrogen [...] Test Results: negative Physician Signature: Iraida Pate APRN.CLINICAL RESEARCH SPEC documented in this encounterChillicothe Va Medical Center01-21-2025 Progress note* [facility] - Dionne Driver Art Therapist - 06/13/2024 [...] 13, 2024 TIME: 10:29 AM PAGER/CONTACT #: [facility]01-21-2025 Miscellaneous Notes* [facility] - Dionne Driver Art Therapist - 06/13/2024 [...] 10:29 AM PAGER/CONTACT #: documented in this encounterChillicothe Va Medical Center01-21-2025 NoteFayette County Memorial Hospital01-21-2025 History of Present illness Narrative* Vaibhav Carvalho APRN.CLINICAL RESEARCH SPEC - 06/13/2024 9:07 AM EST Images from the original note were not included. NAME: Ariadna Haley [facility] NO.: [id number] DATE OF SERVICE: June 13, 2024 (Deven) [...] lower lip done 2 days ago at [facility] - awaiting results. B12 helps [...] injections. Shefollows with multiple doctors including and inside meter tester, rapid extractor operator, personal lines account executive and PCP. She has been told they [...] (Crohn's [Other]) Mother . Vaibhav Carvalho APRN, LOBSTERMAN-C, OCN Hematology and Oncology Services Provided at: [place], [place] CC: Manuel Ferris MD [address] [facility] [address] documented in this encounterChillicothe Va Medical Center01-20-2025 NoteFayette County Memorial [facility]01-20-2025 History of Present illness Narrative* Lee Friedman - 06/12/2024 2:31 PM EST CMN RECEIVED BY [employer] VIA FAX, COMPLETED, AND PLACED IN PROVIDER MAILBOX FOR SIGNATURE Lee Friedman Coordinator III [employer] SENDING CMN: Josh SIGNED AND DATED CMN, FAXED TO DME & CONFIRMATION PAGE RECEIVED: 06.28.2024 documented in this encounterChillicothe Va Medical Center01-20-2025 Telephone encounter Note * Telephone Encounter - Margret Cuenca MA - 06/12/2024 12:00 PM EST Patient has an OTV appointment on 06/13. Please place lab orders. Margret Cuenca MA [facility]01-20-2025 Miscellaneous Notes* Telephone Encounter - Margret Cuenca MA - 06/12/2024 12:00 PM EST Patient has an OTV appointment on 06/13. Please place lab orders. Marrget Cuenca MA documented in this encounterChillicothe Va Medical Center01-14-2025 History of Present illness Narrative* [...] been reviewed prior to dispensing the medication. Well Drill Operator Helper Cable Tool Assessment Patient confirmed: Yes Med/dose confirmed: Yes Supplies needed: No supplies needed Missed doses: No Estimated days supply on hand: 1 Copay amount: 0 Payment confirmed: Yes Delivery method: FedEx Signature required: Waived on patient request Delivery address: [address] [place] [id number] Delivery date: 06/08/24 Questions or concerns for [...] facility-administered medications on file prior to visit. [facility] RX SPECIALTY CLINICAL ASSESSMENT - INFLAMMATORY [...] longer tolerated. Luna Emanuel documented in this encounterChillicothe Va Medical Center01-14-2025 NoteFayette County Memorial Hospital01-14-2025 History of Present illness Narrative* [...] Problems Diagnosis Date Noted Autoimmune disease (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) 07/06/2023 Depression, recurrent ([facility]) 06/09/2023 Discoid lupus erythematosus ([facility]) 02/14/2022 Disturbance of skin sensation 07/06/2023 Elevated sed rate 03/05/2021 High total serum IgM 03/05/2021 Enthesopathy of hip region 07/06/2023 Essential hypertension ([facility]) 06/09/2023 Excessive and frequent menstruation with irregular cycle 09/24/2022 Family history of Crohn's disease 03/05/2021 Hair loss 03/05/2021 Hyperlipidemia (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) 09/07/2022 Obstructive sleep apnea syndrome 05/20/2022 Oral lesion 07/06/2023 Pain, hip 07/06/2023 Rash and nonspecific skin eruption 03/05/2021 Steroid-induced osteoporosis ([facility]) 02/04/2023 Somnolence, daytime 05/20/2022 Secondary osteoarthritis [...] Chronic laryngopharyngitis COVID-19 vaccine administered x 2 ([employer]) Difficulty walking Fatigue Fibromyalgia, primary GERD (gastroesophageal [...] behalf of: KELVIN Cabrera documented in this encounterPemiscot Memorial Health [id number] [facility]12-23-2024 History of Present illness Narrative* Deisy Jaime LSW - 05/15/2024 9:09 AM EST Patient's [facility] appears on the [facility] First Time Treatment Report for a non- oncology treatment. No psychosocial assessment is indicated. BILL Rosenberg Goals of Care Advance Directives are not on file. documented in this encounterChillicothe Va Medical Center12-20-2024 History of Present illness Narrative* JenaeLuna - [...] been reviewed prior to dispensing the medication. Well Drill Operator Helper Cable Tool Assessment Patient confirmed: Yes Med/dose confirmed: Yes Supplies needed: No supplies needed Missed doses: No Estimated days supply on hand: 1 Copay amount: 0 Payment confirmed: Yes Delivery method: FedEx Signature required: Waived on patient request Delivery address: [address], [facility] [address] Delivery date: 05/16/24 Questions or concerns for [...] facility-administered medications on file prior to visit. [facility] RX SPECIALTY CLINICAL ASSESSMENT - INFLAMMATORY [...] longer tolerated. Luna Emanuel documented in this encounterChillicothe Va Medical Center12-20-2024 NoteFayette County Memorial Hospital12-04-2024 Nurse Note* Radha Schofield MA - 04/26/2024 9:32 AM EST Patient Identification confirmed: yes. Injection given and documented on JUL per provider order. Radha Schofield MA [facility]12-04-2024 Nurse Note* Radha Schofield MA - 04/26/2024 9:32 AM EST Patient Identification confirmed: yes. Injection given and documented on MAR per provider order. Radha Schofield MA documented in this encounterChillicothe Va Medical Center11-22-2024 Telephone encounter Note * Telephone Encounter - Gay Barnett - 04/14/2024 12:11 PM EST Patient coming in for a sibo breath test on Wednesday and has been on keflex for 3 days and needs to be on for ten so she will need to reschedule [facility]11-22-2024 Miscellaneous Notes* Telephone Encounter - Gay Barnett - 04/14/2024 12:11 PM EST Patient coming in for a sibo breath test on Wednesday and has been on keflex for 3 days and needs to be on for ten so she will need to reschedule documented in this encounterChillicothe Va Medical Center11-19-2024 NoteFayette County [facility]11-18-2024 Miscellaneous Notes* Telephone Encounter - [...] Please advise. Sherrie Cortes documented in this encounterChillicothe Va Medical Center11-18-2024 Telephone encounter Note * Telephone Encounter - Sherrie Cortes - 04/10/2024 2:12 PM EST Patient requested this appointment be rescheduled for the end of April. She has been scheduled for 05/19, she is all set. Thank you! Sherrie Cortes [facility]11-18-2024 Telephone encounter Note* Telephone Encounter - Shantel Arce [facility] - 04/10/2024 2:07 PM EST SUBQ products (eg, 20% [Cuvitru, Hizentra, Xembify]) or IM products (eg, 16% [GamaSTAN]) intravenously. It would depend upon insurance coverage and would be done as a retail prescription at designated insurance specialty pharmacy. Elpidio Arce, PharmD, BCOP [facility] Work Phone: [phone] Telephone encounter Note* Telephone Encounter - Enma [...] appt per pt request Enma Hamm RN [facility] [facility] Telephone encounter Note* Telephone Encounter - Enma Hamm RN - 04/10/2024 12:54 PM EST Called to discuss with pt. She was researching online and found SCIG a weekly subq injection to give herself that is less dose, and has less side effects. Pharmacy/[place]: please advise Enma Hamm RN [facility] [place]11-18-2024 Telephone encounter Note* Telephone Encounter - Vera Najera MD - 04/10/2024 12:26 PM EST Really sorry - I don't recall the home infusion of IVIG - I think it is safer to give it to her in-house as IV so we can monitor infusion reactions. Sorry if I created a misunderstanding. 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) Hx of abnormal cervical Pap smear [...] AREA NEEDED ergocalciferol (Vitamin D2) 1.25 MG (08734 UT) capsule Take 50,000 Units by mouth [...] referred from the [facility] documented in this encounterPemiscot Memorial Health [id number] Telephone encounter Note* Telephone Encounter - Sherrie [...] Triage was involved? Please advise. Sherrie Cortes [facility]11-15-2024 [facility]11-[facility] History of Present illness Narrative* Deisy Jaime LSW - 04/07/2024 9:30 AM EST Patient's name appears on the [facility] First Time Treatment List for a non- oncology treatment. No psychosocial assessment is indicated. BILL Rosenberg Goals of Care Advance Directives are not on file SIGNATURE: JUSTICE Rosenberg PATIENT NAME: Ariadna Haley DATE: April 07, 2024 TIME: 9:31 AM PAGER/CONTACT #: documented in this encounterChillicothe Va [facility] Center11-14-2024 Evaluation + Plan note* Assessment [...] her Raynaud's. All her questions were answered. [facility]11-14-2024 Miscellaneous Notes* Assessment & Plan Note - [...] her questions were answered. documented in this encounterOhioHealth Southeastern Medical Center11-14-2024 History of Present illness Narrative* [...] 1 Christel in the evening and 1 Crhistel before bedtime. cyanocobalamin (VITAMIN B-12) 1,000 mcg/mL [...] Interpersonal Safety: Unknown (07/15/2023) Received from [facility] [place] [facility] Environment Fear of Current [...] Assessment and Plan: Problem List Rheumatoid arthritis ([facility]) Relevant Medications ibuprofen (ADVIL,MOTRIN) 200 mg tablet predniSONE (STERAPRED DS) 10 mg tablet pack Systemic lupus erythematosus ([facility]) - Primary Relevant Medications ibuprofen (ADVIL,MOTRIN) 200 [...] for this visit: Systemic lupus erythematosus ([facility]) - Vas art doppler lwr bilat mult lev/PVR; Future Cold extremities - [facility] [place] - Vas art doppler lwr bilat mult lev/PVR; Future Pain of lower extremity, unspecified laterality - [facility] [place] - Vas art doppler lwr bilat mult lev/PVR; Future Rheumatoid arthritis, involving unspecified site, unspecified whether rheumatoid factor present ([facility]) Current smoker 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 Hayden Arciniega MD, ZIA, RPVI, FSVS, FACS [facility] This note was created with the assistance of a speech recognition program. While intending to generate a timely document that accurately reflects the content of the visit, no guarantee can be provided that every grammatical or spelling mistake has been or will be identified or corrected. Thank you for your understanding. documented in this encounterOhioHealth Southeastern Medical Center11-14-2024 Instructions* Patient Instructions* Hayden Arciniega MD - 04/06/2024 9:40 AM EST Are You Ready To Kick The Habit? Free Tobacco Cessation Resources [facility] Services [facility] Centers provide all employees with free tobacco cessation services that include: Counseling to understand nicotine addiction Education about medications that can help you successfully quit Assistance with developing a plan to quit Call to set up an individual appointment or find out when group classes will be held: [facility]: [phone] [facility]: [phone] [facility]: [phone] [facility]: [phone] Quit Smoking Action Plan and Resources [facility] offers an eight-week, online smoking cessation plan to all [facility] employees, regardless of whether [place] is your medical insurance provider. Go to www.buuteeq.org/employeewellness and click the Health Risk Assessment and Resources link to get started. In the Rqwnz6Gdadmc menu, click Action Plans instead of Health Risk Assessment to access the Quit Smoking Action Plan. Additional smoking cessation resources are also available to all [facility] employees on the Wzyyd3Aemlui web page at www.bepretty.[employer]/quitsmoking. [place] Tobacco Cessation Program If [place] is your medical insurance provider, there are more free resources available to you, including: No copays or deductibles on local tobacco cessation counseling services to help you quit Prescription assistance for tobacco cessation medications to help you quit For details about the tobacco cessation program available to [place] members, go to www.bepretty.[employer] (Search: Tobacco Cessation Program). [place] Tobacco Quit Line 9-177-LERK-NOW ( ) is a toll-free, telephonic service that helps [place] residents quit smoking and using tobacco. It is staffed by experts who tailor a quit plan for you and provide you with advice. [place] Tobacco Quit Line 1-248-BFCB-NOW ( ) is a toll-free, telephonic service that helps [place] residents quit smoking and using tobacco. It is staffed by experts who tailor a quit plan for you and provide you with advice. Two weeks of nicotine replacement therapy may be provided at no charge, if needed. Additional Resources These national organizations also offer free information and resources to help you quit tobacco: [place] [employer]--www.cancer.org/healthy/stayawayfromtobacco [place] Heart Association--www.heart.org (Search: Quit Smoking) Centers for Disease Control and Prevention--www.cdc.gov/tobacco [place] Lung Association--www.lungusa.org documented in this encounterOhioHealth Southeastern Medical Center11-11-2024 Telephone encounter Note* Telephone Encounter - Marky Nichols DO - 04/03/2024 9:36 AM EST Changed terbinafine to itraconazole at pt request. [facility] [id number] Miscellaneous Notes* Telephone Encounter - Marky Nichols DO - 04/03/2024 9:36 AM EST Changed terbinafine to itraconazole at pt request. documented in this encounterPemiscot Memorial Health [id number] Telephone encounter Note* Telephone Encounter - Lynne [...] above. Please process accordingly. Lynne Ni MD [facility]11-10-2024 Miscellaneous Notes* Telephone Encounter - [...] accordingly. Lynne Ni MD documented in this encounterChillicothe [facility] Center11-10-2024 History of Present illness Narrative* Marky Nichols, [...] with her immunosuppressive therapy. documented in this encounterPemiscot Memorial Health [id number] Instructions* Patient Instructions* Vera Najera MD - 04/01/2024 4:28 PM EST Obtain body fluid culture from [facility]. B12 shot today and every 4 weeks. Continue Folic acid. Frequent infections plan IVIG for hypogammaglobulinemia Start when approved. RTC 3 months repeat labs same day. IVIG same day. 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 [facility]11-07-2024 Miscellaneous Notes* Telephone Encounter - [...] note were not included. documented in this encounterChillicothe Va Medical Center11-06-2024 Telephone encounter Note * Telephone Encounter - Mae Elaine - 03/29/2024 9:02 AM EST Im for pt- saved time on 04/18 7:45 Also sent mychart msg. dm [facility]11-04-2024 NoteFayette County Memorial Hospital11-04-2024 History of Present illness Narrative* Vera Najera MD - 03/27/2024 3:03 PM EST Images from the original note were not included. NAME: Ariadna Haley [facility] NO.: [id number] DATE OF SERVICE: March 27, 2024 (Marquis) Some elements in this clinic note that are critical to medical decision making have been carefully reviewed and included from a prior clinic note dated: December 27, 2023 (Liz) Referring Provider: Dr. Manuel Ferris Additional Clinicians involved in Ariadna Haley's care: VIRTUAL VISIT PROGRESS NOTE This is a virtual visit using [employer] Video Call. It required patient- provider interaction for the medical decision making as documented below. I have communicated my name and active licensure. The patient's identity and physical location wereverified at the time of this visit. Either the patient or their legal food service representative has been informed of the [...] noted. PLAN: Obtain body fluid culture from [facility]. B12 shot today and every 4 [...] lower lip done 2 days ago at [facility] - awaiting results. B12 helps [...] injections. Shefollows with multiple doctors including and inside meter tester, rapid extractor operator, personal lines account executive and PCP. She has been told they [...] CPE Hematology and Oncology Services Provided at: [place], [place] CC: Manuel Ferris MD [address] [facility] [id number] documented in this encounterChillicothe Va Medical Center10-31-2024 History of Present illness Narrative* [...] Problems Diagnosis Date Noted Autoimmune disease (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 Injection given and documented on JUL per provider order. Stacy Gutiérrez MA [facility]10-31-2024 Nurse Note* Stacy Gutiérrez MA - 03/23/2024 10:16 AM EDT Patient Identification confirmed: yes. Injection given and documented on MAR per provider order. Stacy Gutiérrez MA documented in this encounterChillicothe Va [facility] Center10-28-2024 Telephone encounter Note * Telephone Encounter - Mae Elaine - 03/20/2024 12:37 PM EDT Images from the original note were not included. [facility]10-26-2024 History of Present illness Narrative* [...] visit. Either the patient or their legal food service representative has been informed of the [...] measures, may consider osteoporosis treatment if on care home steroids/abnormal bmd, take vitamin D script once [...] metoprolol for POTs, avoid aggravating triggers, terminal operations supervisor pain recommendations per primary care provider/pain clinic/patient [...] may consider osteoporosis treatment if on terminal operations supervisor steroids/abnormal bmd, take vitamin D script if [...] metoprolol for POTs, avoid aggravating triggers, terminal operations supervisor pain recommendations per primary care provider/pain clinic/patient [...] metoprolol for POTs, avoid aggravating triggers, terminal operations supervisor pain recommendations per primary care provider/pain clinic/patient [...] Due for eye exam. Labs sent to [facility]/completed in 06/2021 (no results faxed to office, but patient pulled up results on her phone). Chronic current pain in neck, flank area, mid back, knees, legs, arms, all over pain. Better with lyrica 75mg 3times a day. Reports pain 4-12/31. Couple hrs AM stiffness. COVID vaccine [employer] 09/28/20, 10/19/20, 05/26/21. Feels safe at home. [...] pain: yes H/o precedent/frequent infection(s): as above Enthesopathy/[place]'s/heel/plantar tenderness: hands random painful/tingling Skin thickening, psoriasis, [...] COVID-19 original vaccine, age 12+ yr, monovalent ([employer] - PURPLE TOP) 09/28/2020 10/19/2020 05/26/2021 COVID-19 vaccine, age 12+ yr ([employer] COMIRNATY) 02/23/2023 COVID-19 vaccine, age 12+ yr, bivalent ([employer]) 02/08/2022 Pneumovax no Flu shot no Tetanus [...] (33);NL cbc, cmp, negative hla b27; Outside [employer] 06/2021 low vitamin D 16, vitamin b12-307;high [...] lupus erythematosus with other organ involvement (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) E53.8 Vitamin B12 deficiency L93.0 Discoid [...] may consider osteoporosis treatment if on terminal operations supervisor steroids/abnormal bmd, take vitamin D script once [...] metoprolol for POTs, avoid aggravating triggers, terminal operations supervisor pain recommendations per primary care provider/pain clinic/patient [...] (200mg) daily with a meal Please see manager nicu every 6-12months while on Hydroxychloroquine. Start azathioprine [...] your toes, sit-ups, using row machine terminal operations supervisor pain recommendations per primary care provider/pain clinic [...] video & audio (virtual) or phone or [id number] patient care, completing clinical documentation, obtaining and/or [...] Workers' Compensation? No Do you need an seafood process worker? No [facility] MYCHART ZOOM MESSAGE Question 03/16/2024 7:44 PM [...] Score (range: 0 - 47) 14 15 [facility] DOCUMENT/IMAGE UPLOAD Question 03/16/2024 7:51 PM EDT [...] of Right Forearm or Lower Left Leg. [facility] PROMIS 10 ADULT SHORT FORM V1.0 GLOBAL [...] 3) 2 (LESS < or = 5) [facility] PROVIDER UNDERSTANDING CURRENT HEALTH RHEUMATOLOGY Question 2023 11:10 PM EDT - Filed by Patient These questions will help my provider understand my health Strongly Agree documented in this encounterChillicothe Va [facility] Center10-26-2024 Instructions* Patient Instructions* Lynne Ni [...] (200mg) daily with a meal Please see manager nicu every 6-12months while on Hydroxychloroquine. azathioprine daily [...] your toes, sit-ups, using row machine terminal operations supervisor pain recommendations per primary care provider/pain clinic [...] your usual activities immediately. documented in this encounterChillicothe Va Medical Center10-25-2024 Telephone encounter Note * Telephone [...] above. Please process accordingly. Lynne Ni MD [facility]10-25-2024 Miscellaneous Notes* Telephone Encounter - [...] Department VIDEO SPEC EST 03/18/2024 9[facility]00 [facility] Last Ophthalmology Check [...] Assoc. diagnoses: Pseudomonas infection documented in this encounterChillicothe Va [facility] Center10-25-2024 Telephone encounter Note * Telephone [...] VIDEO SPEC EST 03/18/2024 9:00 AM [facility] REJ Last Ophthalmology Check [...] Alhaji Victoria DO Assoc. diagnoses: Pseudomonas infection [facility]10-24-2024 History of Present illness Narrative* [...] Problems Diagnosis Date Noted Autoimmune disease (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) 07/06/2023 Depression, recurrent ([facility]) 06/09/2023 Discoid lupus erythematosus ([facility]) 02/14/2022 Disturbance of skin sensation 07/06/2023 Elevated sed rate 03/05/2021 High total serum IgM 03/05/2021 Enthesopathy of hip region 07/06/2023 Essential hypertension ([facility]) 06/09/2023 Excessive and frequent menstruation with irregular cycle 09/24/2022 Family history of Crohn's disease 03/05/2021 Hair loss 03/05/2021 Hyperlipidemia ([facility]) 05/31/2014 [facility] current use of systemic steroids 02/04/2023 Long-term use of high-risk medication 06/15/2022 Long-term use of Plaquenil 03/05/2021 LPRD (laryngopharyngeal reflux disease) 07/06/2023 Megaloblastic anemia due to vitamin B12 deficiency 03/04/2022 Myalgia 07/06/2023 Obesity, Class III, BMI 40-49.9 (morbid obesity) ([facility]) 09/07/2022 Obstructive sleep apnea syndrome 05/20/2022 Oral lesion 07/06/2023 Pain, hip 07/06/2023 Rash and nonspecific skin eruption 03/05/2021 Steroid-induced osteoporosis ([facility]) 02/04/2023 Somnolence, daytime 05/20/2022 Secondary osteoarthritis of multiple sites 03/05/2021 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 02/04/2023 Swelling of lymph nodes 03/05/2021 Vitamin D deficiency 03/06/2021 Vitamin B12 deficiency 05/31/2014 Pure hypercholesterolemia, unspecified (CMS/HCC) 08/10/2023 Hoarse 08/10/2023 Thyroid nodule ([facility]) 08/10/2023 Shortness of breath 07/13/2023 Paroxysmal supraventricular tachycardia ([facility]) 07/13/2023 PAC (premature atrial contraction) 07/13/2023 [...] removal of cyst 2012 HTN (hypertension) (CMS/[facility]) Hx of abnormal cervical Pap smear Insulin resistance Laryngopharyngeal reflux disease Lupus Numbness Oral thrush Prediabetes Sleep apnea Weakness of limb HISTORY PAST MEDICAL HISTORY SOCIAL HISTORY Past Medical History: Diagnosis Date Anxiety Cervical lymphadenopathy Chronic laryngopharyngitis COVID-19 vaccine administered x 2 ([employer]) Difficulty walking Fatigue Fibromyalgia, primary GERD (gastroesophageal reflux disease) History of removal of cyst 2012 tailbone x2 HTN (hypertension) ([facility]) Hx of abnormal cervical Pap smear Hyperlipidemia ([facility]) Insulin resistance Laryngopharyngeal reflux disease Lupus [...] nursing note reviewed. Exam conducted with a back order clerk present. Vitals: Estimated body mass index is [...] Disease with Dr. Baer and Specialist at [facility]. Patient voiced that Dr. Baer recommended surgery, but patient feels that maybe excessive. Specialist at [facility] suggested monitoring. Patient has had mammogram. Patient does not put anything on her breast.Ruled out Mondor's Breast concerns. Discussed [employer] at night and Vitamin E lotion. Patient voiced that her breast feel brambila and heavier. Discussed growth of breast and proper support. Breastare not hot nor warm to the touch. Patient to obtain bilateral breast ultrasound. Patient to followup with routine annual appointment and as needed. Documented by Alicia Christine LPN on behalf of: Luan Valdivia DO documented in this encounterPemiscot Memorial Health [id number] [facility] Cardiology Clinic Note Chief Complaint: New patient here to establish care. Ref from Gay De La Torre CNP for hypertension. [facility] cardiology patient. Had echo a few weeks ago at [facility]. Says her BP is very low [...] past several months. She has seen 2-3 water softener installer in the past. She has undergone a [...] on any stimulants including caffeinated beverages, alcohol, [id number]-[id number] Sudafed etc. If her symptoms of palpitations persist, particular if she has lightheadedness or dizziness, head upright tilt table test may be reasonable to evaluate for possible dysautonomia's I discussed the side effects and risks of long-term steroid therapy and recommended she discuss with her rapid extractor operator weaning off soon as possible Given her morbid obesity, her current symptoms and comorbidities are likely related to excessive weight: I encouraged physical activity, attempts to lose weigh (more content not included)...[facility] 03-07-2024 History of Present illness Narrative* Lee Friedman - 03/07/2024 8:35 AM EDT CMN RECEIVED BY [employer] VIA FAX, COMPLETED, AND PLACED IN PROVIDER MAILBOX FOR SIGNATURE Lee Friedman Coordinator III 03.07.2024 [employer] SENDING CMN: Josh SIGNED AND DATED CMN, FAXED TO [employer] & CONFIRMATION PAGE RECEIVED: 03.07.2024 documented in this encounterChillicothe Va [facility] Center10-01-2024 Telephone encounter Note * Telephone [...] 'too terrified to drive that far to [facility].' Further reviewed the reasoning behind the visit needing to be in-person and stated that I would have our printing specialist reach out if she is willingto accept an in-person appt. PT requested that I review with our clinical team if this can be a VV before she schedules. I let her know I will do so and be in touch. She had no further questions at this time. Luda Vargas Genetic Counseling Certified Surgical First Assistant Additional: see Khoa for documentation of scheduling and cancellation with genetics in 2021 [facility]10-01-2024 Miscellaneous Notes* Telephone Encounter - [...] terrified to drive that far to [place].' Further reviewed the reasoning behind the visit needing to be in-person and stated that I would have our printing specialist reach out if she is willingto accept an in-person appt. PT requested that I review with our clinical team if this can be a VV before she schedules. I let her know I will do so and be in touch. She had no further questions at this time. Luda Vargas Genetic Counseling Certified Surgical First Assistant Additional: see Khoa for documentation of scheduling and cancellation with genetics in 2021 documented in this encounterChillicothe Va [facility] Center09-30-2024 Nurse Note* Kenzie Shannon MA - 02/21/2024 11:13 AM EDT Patient Identification confirmed: yes. Injection given and documented on JUL per provider order. Kenzie Shannon MA [facility]09-30-2024 Nurse Note* Kenzie Shannon MA - 02/21/2024 11:13 AM EDT Patient Identification confirmed: yes. Injection given and documented on JUL per provider order. Kenzie Shannon MA documented in this encounterChillicothe Va Medical Center09-27-2024 Telephone encounter Note * Telephone Encounter - Sherrie Jimenes - 02/18/2024 1:26 PM EDT Patient is calling the [place] office requesting Dr. Ni to place a referral to genetics. Please advise. [facility]09-27-2024 Miscellaneous Notes* Telephone Encounter - Sherrie Jimenes - 02/18/2024 1:26 PM EDT Patient is calling the [place] office requesting Dr. Ni to place a referral to genetics. Please advise. documented in this encounterChillicothe [facility]09-24-2024 Telephone encounter Note * Telephone Encounter - Hansa Javed LPN - 02/15/2024 9:49 AM EDT PAP ORDER FAXED TO [facility] WITH DEMOGRAPHICS, OFFICE NOTES WITH CONFIRMATON NOTED. [facility]09-24-2024 Miscellaneous Notes* Telephone Encounter - Hansa Javed LPN - 02/15/2024 9:49 AM EDT PAP ORDER FAXED TO [facility] WITH DEMOGRAPHICS, OFFICE NOTES WITH CONFIRMATON NOTED. documented in this encounterChillicothe Va [facility] Center09-23-2024 History of Present illness Narrative* Elton (Cash Management Officer)Luda - 02/14/2024 2:32 PM EDT [facility] [...] been reviewed prior to dispensing the medication. Well Drill Operator Helper Cable Tool Assessment Patient confirmed: Yes Med/dose confirmed: Yes Missed doses: No Estimated days supply on hand: 1 Next cycle/dose due: 02/17/24 Copay amount: 0 Payment confirmed: Yes Delivery method: FedEx Signature required: Waived on patient request Delivery address: [address] [place] [address] [place], [place] Delivery date: 02/17/24 Questions or concerns [...] facility-administered medications on file prior to visit. [facility] RX SPECIALTY CLINICAL ASSESSMENT - INFLAMMATORY [...] and/or no longer tolerated. Luda Conde CPhT [facility] [phone] documented in this encounterChillicothe Va [facility] Center09-23-2024 History of Present illness Narrative* Elton EpsteinCash Management OfficerLuda Benz - 02/14/2024 2:26 PM EDT Benefits investigation was conducted, indicating that a re-authorization is required for Benly[employer]. WARREN was initiated and pending review. Plan Name: Keesha Armstrong Balderrama: [id number] Luda Conde CPhT [facility] [phone] documented in this encounterChillicothe Va Medical Center09-23-2024 Instructions* Patient Instructions* Lexus Heck APRN.CLINICAL RESEARCH SPEC - 02/14/2024 8:03 AM EDT Images from the original note were not included. Your most recent body mass index (BMI) that we have on record is 43.08 kg/m2. Obstructive sleep apnea (JOSE RAFAEL) worsens with an increase in weight; reduction in weight may improve or resolve your JOSE RAFAEL. Ifyou are not already seeking treatment, there are resources available at the [facility] such as a nutrition consultation or referral to weight management programs at our [facility]. Please let us know if we can [...] deductible,co-payments, and out of pocket expenses. DME: [facility] [phone] - Remember to clean your mask and equipment regularly, as directed. - Avoid use of ozone job checker, SoClean devices, or UV cleaning devices [...] the central scheduling system for the [facility] at [phone]. [facility] now offers direct scheduling for patients to schedule appointments. Virtual visits are also available. Call the office at [phone], option #5 for questions. documented in this encounterChillicothe Va Medical Center09-23-2024 History of Present illness Narrative* Lexus Heck APRN.CNP - 02/14/2024 8:00 AM EDT Images from the original note were not included. [facility] Virtual Visit Follow up/ Established patient visit Date of last visit : 07/27/2022 I have communicated my name and active licensure. The patient's identity and physical location wereverified at the time of this visit. Either the patient or their legal food service representative has been informed of the [...] : PAP therapy DME: Josh MOJICA fax: [phone] DME ph: [phone] PAP History: Current PAP settin-15 cm H2O. [...] are sorted in reverse-chronological order 04/12/2022 07/23/2022 [place] Sleepiness Scale Score 4 (No clinically significant [...] - Follow up 12 months. Lexus Heck APRN.CLINICAL RESEARCH SPEC documented in this encounterChillicothe Va Medical Center09-18-2024 History of Present illness Narrative* Zita Cuellar, CARISSA - 02/09/2024 8:00 AM EDT Images from the original note were not included. CHIEF COMPLAINT REASON FOR VISIT : leg pain HPI: Ariadna Haley is a 43 y.o. female who presents for [facility] audiovisit. She is at home. She [...] Chronic laryngopharyngitis COVID-19 vaccine administered x 2 ([employer]) Difficulty walking Fatigue Fibromyalgia, primary GERD (gastroesophageal reflux disease) History of removal of cyst 2013 tailbone x2 HTN (hypertension) ([facility]) Hx of abnormal cervical Pap smear Hyperlipidemia ([facility]) Insulin resistance Laryngopharyngeal reflux disease Lupus [...] Depression: Not at risk (12/27/2023) Received from [facility] PHQ-2 PHQ-2 score: 1 REVIEW [...] patient, and coordinating care. documented in this encounterPemiscot Memorial Health [id number] NoteHNO ID: [id number] Author: ALHAJI VICTORIA, DO Service: ? Author Type: Physician Type: Progress Notes Filed: 01/27/2024 16:54 Note Text: VIRTUAL VISIT PROGRESS NOTE This is a virtual visit using [employer] Video Visit. It required patient-provider interaction for the medical decision making as documented below. I have communicated my name and active licensure. The patient's identity and physical location were verified at the time of this visit. Either the patient or their legal food service representative has been informed of the [...] of green drainage. She saw her OB/ director of public safety. This was thought to be secondary to [...] Hospital09-05-2024 History of Present illness Narrative* Alhaji Victoria [...] visit. Either the patient or their legal food service representative has been informed of the [...] of green drainage. She saw her OB/ director of public safety. This was thought to be secondary to [...] thrush Alhaji Victoria DO documented in this encounterChillicothe Va [facility] Center09-03-2024 Nurse Note* Margret Cuenca MA - 01/25/2024 11:30 AM EDT Patient Identification confirmed: yes. Injection given and documented on JUL per provider order. Margret Cuenca MA [facility]09-03-2024 Nurse Note* Margret Cuenca MA - 01/25/2024 11:30 AM EDT Patient Identification confirmed: yes. Injection given and documented on MAR per provider order. Margret Cuenca MA documented in this encounterChillicothe Va Medical Center08-27-2024 History of Present illness Narrative* [...] parameters, disease state markers and outcomes. Aidee Dwight, PharmD Clinical Pharmacist, [employer] [facility] ; Pool: P [facility] Pool #: [id number] Well Drill Operator Helper Cable Tool Assessment Patient confirmed: Yes Med/dose confirmed: Yes Supplies needed: No supplies needed Missed doses: No Estimated days supply on hand: (At least 1 dose) Next cycle/dose due: 01/20/24 Copay amount: 0 Payment confirmed: Yes Delivery method: FedEx Signature required: Waived on patient request Delivery address: [address] [place] [address] Delivery date: 01/21/24 Questions or concerns for [...] facility-administered medications on file prior to visit. [facility] RX SPECIALTY CLINICAL ASSESSMENT - INFLAMMATORY [...] no longer tolerated. Arianne Mckinley CPhT, Inflammatory/Allergy [facility] [phone] documented in this encounterChillicothe Va [facility] Center08-21-2024 Telephone encounter Note * Telephone Encounter - Krista Braswell MA - 01/12/2024 10:45 AM EDT Pt has been notified via [employer]. [facility]08-21-2024 Miscellaneous Notes* Telephone Encounter - Krista Fonseca MA - 01/12/2024 10:45 AM EDT Pt has been notified via [employer]. * Telephone Encounter - Lynne Ni MD [...] HYDROXY [SQVITD] 03/20/24 12/29/24 12/30/23 Auth. provider: Lynen Ni MD Assoc. diagnoses: Vitamin D deficiency BLOOD TB SCREEN [SQINFTBP] 03/20/24 12/29/24 12/30/23 Auth. provider: Lynne Ni MD Assoc. 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 Please process accordingly. Lynne Ni MD [facility]08-21-2024 Telephone encounter Note* Telephone Encounter [...] Lynne Ni MD Assoc. 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 [facility]08-08-2024 Miscellaneous Notes* Telephone Encounter - [...] vitamin b12 every month documented in this encounterChillicothe Va Medical Center08-08-2024 Telephone encounter Note * Telephone [...] likely reactive, continue vitamin b12 every month [facility]08-05-2024 Telephone encounter Note* Telephone Encounter - Enma Hamm RN - 12/27/2023 12:49 PM EDT Pt informed of MM message and denies any questions, needs or concerns at this time. Appointments verified. Enma Hamm RN [facility]08-05-2024 Miscellaneous Notes* Telephone Encounter - Enma Hamm, [...] thinners. Neda Hill PA-C documented in this encounterChillicothe Va Medical Center08-05-2024 Telephone encounter Note * Telephone Encounter - Neda Hill PA-C - 12/27/2023 12:44 PM EDT Please call and inform the patient that I reviewed her [facility] records and there is no evidence of a blood clot and she does not need to be on blood thinners. Neda Hill PA-C [facility] Work Phone: [phone] 779-902908-05-2024 Nurse Note* Margret Cuenca MA - 12/27/2023 11:44 AM EDT Patient Identification confirmed: yes. Injection given and documented on MAR per provider order. Margret Cuenca MA [facility]08-05-2024 Nurse Note* Margret Cuenca MA - 12/27/2023 11:44 AM EDT Patient Identification confirmed: yes. Injection given and documented on MAR per provider order. Margret Cuenca MA documented in this encounterChillicothe Va Medical Center08-05-2024 History of Present illness Narrative* Neda Hill PA-C - 12/27/2023 11:30 AM EDT Images from the original note were not included. NAME: Ariadna Haley [facility] NO.: [id number] DATE OF SERVICE: December 27, 2023 (Liz) [...] labs 1 week before. Request records from [facility] from [facility]/elevated d-dimer Frequent infections and [...] lower lip done 2 days ago at [facility] - awaiting results. B12 helps [...] injections. Shefollows with multiple doctors including and inside meter tester, rapid extractor operator, personal lines account executive and PCP. She has been told they [...] which included preparing to see the patient, himj-wr-dpke patient care, completing clinical documentation, obtaining and/or reviewing separately obtained history, performing a medically appropriate examination, counseling and educating the pat ient/family/caregiver, ordering medications, tests, or procedures, communicating with other HCPs (not separately reported), independently interpreting results (not separately reported), communicatingresults to the patient/family/caregiver, and care coordination (not separately reported). Neda Hill PA-C Hematology and Oncology Services Provided at: [place], [place] CC: Manuel Ferris MD [address] [facility] [address] documented in this encounterChillicothe Va [facility] Center07-22-2024 History of Present illness Narrative* Elton (Cash Management Officer)Luda - 12/13/2023 11:44 AM EDT [facility] [...] laboratory parameters, disease state markers and outcomes. Well Drill Operator Helper Cable Tool Assessment Patient confirmed: Yes Med/dose confirmed: Yes Missed doses: No Estimated days supply on hand: 1 Next cycle/dose due: 12/16/23 Copay amount: 0 Payment confirmed: Yes Delivery method: FedEx Signature required: Waived on patient request Delivery address: [address] [place] [address] Delivery date: 12/17/23 Questions or concerns for [...] facility-administered medications on file prior to visit. [facility] RX SPECIALTY CLINICAL ASSESSMENT - INFLAMMATORY CONDITIONS V6: Assessment to use: Refill [facility] RX SPECIALTY PHARMACY VACCINE INFORMATION [facility] PHARMACY TREATMENT PLAN INFORMATION Luda Conde CPhT [facility] [phone] documented in this encounterChillicothe Va Medical Center07-08-2024 Nurse Note* Stacy Gutiérrez MA - 11/29/2023 1:47 PM EDT Patient Identification confirmed: yes. Injection given and documented on MAR per provider order. Stacy Gutiérrez MA [facility]07-08-2024 Nurse Note* Stacy Gutiérrez MA - 11/29/2023 1:47 PM EDT Patient Identification confirmed: yes. Injection given and documented on MAR per provider order. Stacy Gutiérrez MA documented in this encounterChillicothe Va [facility] Center07-05-2024 Telephone encounter Note * Telephone Encounter - Katherin Schneider RN - 11/26/2023 11:34 AM EDT Please sign pended script Maryam Schneider RN [facility]07-05-2024 Miscellaneous Notes* Telephone Encounter - Katherin Schneider RN - 11/26/2023 11:34 AM EDT Please sign pended script Maryam Schneider RN documented in this encounterChillicothe Va Medical Center06-24-2024 History of Present illness Narrative* Aidee Quintanilla, [facility] - 11/15/2023 1:00 PM EDT [facility] [...] laboratory parameters, disease state markers and outcomes. Well Drill Operator Helper Cable Tool Assessment Patient confirmed: Yes Med/dose confirmed: Yes Missed doses: No Estimated days supply on hand: 1 Next cycle/dose due: 11/18/23 Copay amount: 0 Payment confirmed: Yes Delivery method: FedEx Signature required: Waived on patient request Delivery address: [address] [place] [address] Delivery date: 11/17/23 Questions or concerns for [...] facility-administered medications on file prior to visit. [facility] Visit Assessment - [...] Yes Aidee Quintanilla, PharmD Clinical Pharmacist, [employer] [facility] ; Pool: P [facility] Pool #: [id number] documented in this encounterChillicothe Va [facility] Center06-20-2024 Telephone encounter Note * Telephone [...] above. Please process accordingly. Lynne Ni MD [facility]06-20-2024 Miscellaneous Notes* Telephone Encounter - [...] High total serum IgM documented in this encounterChillicothe Va Medical Center06-20-2024 Telephone encounter Note * Telephone [...] E [SQIGE] 12/02/23 03/02/24 09/09/23 Auth. provider: Vear Najera MD Assoc. diagnoses: Megaloblastic anemia due [...] vitamin B12 deficiency, High total serum IgM [facility]06-06-2024 Telephone encounter Note* Telephone Encounter - Karina Morales RN - 10/28/2023 1:33 PM EDT Pt read [employer] message. [facility]06-06-2024 Miscellaneous Notes* Telephone Encounter - Karina Morales RN - 10/28/2023 1:33 PM EDT Pt read [employer] message. * Telephone Encounter - Lynne Ni [...] soon! Warm regards, :) documented in this encounterChillicothe Va Medical Center06-06-2024 Telephone encounter Note * Telephone [...] you feel better soon! Warm regards, :) [facility]06-05-2024 Nurse Note* Margret Cuenca MA - 10/27/2023 2:43 PM EDT Patient Identification confirmed: yes. Injection given and documented on MAR per provider order. Margret Cuenca MA [facility]06-05-2024 Nurse Note* Margret Cuenca MA - 10/27/2023 2:43 PM EDT Patient Identification confirmed: yes. Injection given and documented on MAR per provider order. Margret Cuenca MA documented in this encounterChillicothe Va Medical Center05-14-2024 History of Present illness Narrative* [...] visit. Either the patient or their legal food service representative has been informed of the [...] may consider osteoporosis treatment if on terminal operations supervisor steroids/abnormal bmd, take vitamin D script if [...] neurology/on metoprolol for POTs, avoid aggravating triggers, care home pain recommendations per primary care provider/pain [...] metoprolol for POTs, avoid aggravating triggers, terminal operations supervisor pain recommendations per primary care provider/pain clinic/patient [...] -12/31. Couple hrs AM stiffness. COVID vaccine [employer] 09/28/20, 10/19/20, 05/26/21. Feels safe at home. [...] COVID-19 original vaccine, age 12+ yr, monovalent ([employer]ogou - PURPLE TOP) 09/28/2020 10/19/2020 05/26/2021 COVID-19 vaccine, age 12+ yr, 2022- season (Sogou) 02/23/2023 COVID-19 vaccine, age 12+ yr, bivalent (Sogou) 02/08/2022 Pneumovax no Flu shot no Tetanus [...] (33);NL cbc, cmp, negative hla b27; [employer] 06/2021 low vitamin D 16, vitamin b12-307;high [...] may consider osteoporosis treatment if on terminal operations supervisor steroids/abnormal bmd, take vitamin D script once [...] neurology/on metoprolol for POTs, avoid aggravating triggers, care home pain recommendations per primary care provider/pain [...] (200mg) daily with a meal Please see manager nicu every 6-12months while on Hydroxychloroquine. Start azathioprine [...] touching your toes, sit-ups, using row machine care home pain recommendations per primary care provider/pain [...] video & audio (virtual) or phone or txnt-ht-uvap patient care, completing clinical documentation, obtaining and/or [...] Workers' Compensation? No Do you need an seafood process worker? No [facility] MYCHART ZOOM MESSAGE Question 2023 [...] (range: 0 - 100) 2 2 3 [facility] PROMIS CAT V1.0 - FATIGUE-28 [...] (range: 0 - 100) 5 2 4 [facility] SLAQ QUESTIONNAIRE Question 2023 11:10 PM EDT [...] SLAQ Score (range: 0 - 47) 15 [facility] PROVIDER UNDERSTANDING CURRENT HEALTH RHEUMATOLOGY Question 2023 [...] 3 (WITHIN +/- 5) documented in this encounterChillicothe Va Medical Center05-09-2024 Nurse Note* Renea Schneider MA - 09/30/2023 10:53 AM EDT Patient Identification confirmed: yes. Injection given and documented on JUL per provider order. Renea Schneider MA [facility]05-01-2024 Evaluation note* Author Ketty Mccall [facility] CenterAuthoredMay 2023 [id number] female referred to the gastroenterology clinic for [...] switch omeprazole to pantoprazole and monitor symptoms [facility] Work Phone: 1(925) 920-148804-18-2024 Instructions* Patient Instructions* Vera Najera MD - 09/09/2023 4:47 PM EDT Follow up in 13 Weeks - labs 1 week before. B12 shot every 4 weeks. Continue Folic acid. documented in this encounterChillicothe Va Medical Center04-18-2024 History of Present illness Narrative* Vera Najera MD - 09/09/2023 4:30 PM EDT NAME: Ariadna Haley [facility] NO.: [id number] DATE OF SERVICE: September 09, 2023 (Marquis) Some elements in this clinic note that are critical to medical decision making have been carefully reviewed and included from a prior clinic note dated: June 10, 2023 (Marquis) Referring Provider: Dr. Manuel Ferris Additional Clinicians involved in Ariadna Haley's care: VIRTUAL VISIT PROGRESS NOTE This is a virtual visit using [employer] Video Call. It required patient- provider interaction for the medical decision making as documented below. I have communicated my name and active licensure. The patient's identity and physical location wereverified at the time of this visit. Either the patient or their legal food service representative has been informed of the [...] lower lip done 2 days ago at [facility] - awaiting results. B12 helps [...] injections. Shefollows with multiple doctors including and inside meter tester, rapid extractor operator, personal lines account executive and PCP. She has been told they [...] CPE Hematology and Oncology Services Provided at: [place], [place] CC: Manuel Ferris MD [address] [facility] [place] [facility] [id number] documented in this encounterChillicothe Va Medical Center04-15-2024 Miscellaneous Notes* Telephone Encounter - Maynor Bryson MA - 09/06/2023 7:21 AM EDT patient has viewed the [employer] message per [employer]. * Telephone Encounter - Lynne Ni MD - 09/04/2023 6:30 PM EDT Please Call patient if [employer] note not read to review results/released to [...] accordingly. Lynne Ni MD documented in this encounterChillicothe Va Medical Center04-09-2024 Nurse Note* Margret Cuenca MA - 08/31/2023 10:35 AM EDT Patient Identification confirmed: yes. Injection given and documented on JUL per provider order. Margret Cuenca MA documented in this encounterChillicothe Va Medical Center04-01-2024 Nurse Note* Renea Schneider MA - 09/30/2023 10:53 AM EDT Patient Identification confirmed: yes. Injection given and documented on JUL per provider order. Renea Schneider MA documented in this encounterChillicothe Va Medical Center03-14-2024 Nurse Note* Margret Cuenca - 08/05/2023 11:16 AM EDT Patient Identification confirmed: yes. Injection given and documented on JUL per provider order. Margret Cuenca documented in this encounterChillicothe Va Medical Center02-20-2024 Nurse Note* Margret Cuenca - 07/13/2023 12:01 PM EST Patient Identification confirmed: yes. Injection given and documented on JUL per provider order. Margret Cuenca documented in this encounterChillicothe Va Medical Center02-20-2024 History of Present illness Narrative* [...] and is being cared for at the [facility] utilizing steroids, Plaquenil and injectable medic ation(Benlystal). The patient record indicating having had cardiac catheterization in [place] 3 years ago which was normal. I have the report available for my review. [facility] [...] lupus being treated by rheumatology at the [facility] on steroids, Plaquenil and monoclonal antibody [...] , Rfl: ergocalciferol (Vitamin D-2) 1.25 MG (99796 UT) capsule, Take 1 capsule (50,000 Units) [...] exam, discussion and plan. documented in this [facility] Work Phone: 1(701) 377-121502-20-2024 Instructions* Patient Instructions* Lila Tejeda LPN - [...] time of your visit. documented in this [facility] Work Phone: 1(851) 518-269402-13-2024 History of Present illness Narrative* Kade Early [...] , Rfl: ergocalciferol (Vitamin D2) 1.25 MG (28048 UT) capsule, Take 50,000 Units by mouth [...] Chronic laryngopharyngitis COVID-19 vaccine administered x 2 ([employer]) History of removal of cyst 2013 tailbone [...] reflexes: Stu's absent. Ankle clonus absent. Coordination Onidps-uq-gvrd, rapid alternating movements and fcrd-ms-rnlo normal bilaterally without dysmetria. Gait Normal casual, [...] Lyrica 100 mg TID. She is on afgqicxcrp41 mg once daily. Increase prednisone 10 mg BID for 10 days. documented in this encounterPemiscot Memorial Health [id number] History of Present illness Narrative* Michelle Jasmine, FIELD MARKETING COORDINATOR-CLINICAL RESEARCH SPEC - 06/09/2023 8:30 AM EST Ariadna Haley is a 42 y.o. female that presents to the office today for new patient evaluation asself referral for palpitations and elevated heart rates. She has a PMH of HTN, HLD, tachycardia, anemia, JOSE RAFAEL with CPAP compliance, lupus, autonomic dysfunction, arthritis, chronic back pain. She has undergone cardiac workup in the past in [place] as noted below. She also states that she follows withNeurology for possible POTS syndrome. Admits to daily tobacco use, 1 pack of cigarettes per day. Denies vaping, ETOH, recreational drugs. Admits to drinking approximately 1 pot of coffee per day. Denies daily exercise. 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 Family history [...] , Rfl: ergocalciferol (Vitamin D-2) 1.25 MG (91683 UT) capsule, Take 1 capsule (50,000 Units) [...] to prepare this document. documented in this [facility] Work Phone: [phone]) 301-436001-03-2024 Instructions* Patient Instructions* Christie Phan MD - 05/26/2023 5:43 PM EST Images from the original note were not included. https://[employer]/tofu-bolognese/ https://nutritionstudies.org/gqe-cb-wnarkbplp-ieyijxkh-qn-hagmr-a-kvvac-psuu-randee dg-rgmuw-jrasbanku/ https://www.1-800-DOCTORS/blog/plantbasedkids https://GeoPoll/nqlzj-whycs-arhl-for-kids/ https://Web Performance/cbr-pt-jqtqigzkrh-exsi-xvpb-vg-e-fhdlw-liygt-diet/ WHAT TO EAT? Breakfast: Overnight Oats Base [...] muffin, cooked egg/egg white, tomato, thin slice uzbek cheese Fresh berries, hard boiled egg, whole wheat toast Plain yogurt topped with berries, unsalted nuts, drizzle of honey Whole grain toast/Burmese muffin topped with mashed avocado and tomatoes Lunch: Dinner leftovers packed in Tupperware, side of fruit Salad mixture topped with a protein (chick breast/tuna/hard boiled egg/beans), dressing and side offruit Dinner - Refer to plate highballer pictures to help select foods and portion ratios of protein, vegetables/starches. Keep it simple and rotate your favorite meals. Sheet nix meals Soups Grilled protein/vegetables/side of starch (plate highballer picture) Stir can with protein, mixed vegetables, and riced cauliflower or portion controlled whole grain rice. Make your own bowls - Nepalese/Paraguayan/ theme [place] with Zoodles (spiralized vegetable noodles). Roasted vegetable wraps Alter traditional recipes to reflect HIGH QUALITY ingredients in the right QUANTITIES. Snacks - portion controlled: Raw veggies (can have with hummus, mashed avocado, salsa). Unsalted nuts Fruit (1 serving). (optional side of peanut butter) Air pop popcorn [place] and low fat uzbek cheese rolled up String cheese Protein balls (mix rolled oats, nut butter, flax seeds, dash almond milk). Beverages: Water Coffee, Hot tea Unsweetened ice tea EATING OUT: Research menu online, include nutritional information. Make your order decision before getting to restaurant. Stick to recommended portions (plate highballer picture). Ask for substitutions or modifications. Consider [...] baked potato, sprouted grain bread, chick peas https://www.[employer]/article/0501497/vbsqxhgkolkbu-wutn-vfuc-for-beginners / https://www.[employer]/category/4274/kqfeyurtrwtaf-dfug-qxsnot/ https://www.Real Image Media Technologies/category/4300/nskdwfqwqriyc-ljpw-kkte-plans/ My current favorite cookbooks are documented in this encounterChillic[facility]01-03-2024 History of Present illness Narrative* Christie Phan MD - 05/26/2023 5:00 PM EST Images from the original note were not included. [facility] Follow-Up Appointment [...] the date of the service which included inqj-jx-unrl patient care, completing clinical documentation, performing a medically appropriate examination, counseling and educating the patient/family/caregiver, and ordering medications, tests, or procedures. Christie Phan MD, [place], [facility] Lifestyle Medicine Specialist documented in this encounterChillicothe Va [facility] Center12-04-2023 Miscellaneous Notes* Telephone Encounter - Renate Lawrence MA - 04/26/2023 5:26 PM EST Medication pending with new pharmacy information. documented in this encounterChillicothe Va Medical Center12-04-2023 History of Present illness Narrative* Christie Phan MD - 04/26/2023 4:15 PM EST Images from the original note were not included. [facility] Virtual Follow-Up [...] the date of the service which included hbcw-uj-xkrv patient care, completing clinical documentation, performing a medically appropriate examination, counseling and educating the patient/family/caregiver, and ordering medications, tests, or procedures. I have communicated my name and active licensure. The patient's identity and physical location wereverified at the time of this visit. Either the patient or their legal food service representative has been informed of the risks and benefits of -- and alternatives to -- treatment through a remote evaluation andconsents to proceed with the evaluation remotely. Christie Phan MD, MA, [facility] Lifestyle Medicine Specialist documented in this encounterChillicothe Va [facility] Center12-04-2023 Nurse Note* Renate Lawrence MA - 04/26/2023 2:46 PM EST Spoke to Ariadna Haley, confirmed patient is registered on [employer] and is prepared for their appointment. Confirmed the patient has updated medications, allergies, and questionnaires via [employer]. Informed patient if there is an issue with the connection, provider will send the patient a secure link. If provider is running late, patient should remain connected to the visit. Patient verbalized understanding. documented [facility] this [facility]11[facility]30-[facility]23 Miscellaneous Notes* Telephone Encounter - Enma Hamm RN - 04/22/2023 3:48 PM EST Pt called for Iron results; possible need for transfusion. Pt aware no need for iron infusion at this time. Enma Hamm RN documented in this [facility]11-24-2023 History of Present illness Narrative* Kenzie Shannon - 04/16/2023 10:55 AM EST Patient Identification confirmed: yes. Injection given and documented on JUL per provider order. Kenzie Shannon documented in this encounterChillicothe Va [facility] Center10-27-2023 History of Present illness Narrative* Kenzie Shannon - 03/19/2023 11:06 AM EDT Patient Identification confirmed: yes. Injection given and documented on JUL per provider order. Kenzie Shannon documented in this encounterChillicothe Va [facility] Center10-24-2023 History of Present illness Narrative* Marija Ziegler - 03/16/2023 10:13 AM EDT CMN RECEIVED BY [employer] VIA FAX, COMPLETED, AND PLACED IN PROVIDER MAILBOX FOR SIGNATURE On 2022 By Marija Ziegler Chemical Tank Worker [employer]. [employer] SENDING CMN: JOSH SIGNED AND DATED CMN, FAXED TO [employer] & CONFIRMATION PAGE RECEIVED: 03.24.23 documented in this encounterChillicothe Va [facility] Center10-19-2023 History of Present illness Narrative* [...] LPN In Department: RHEUMATOLOGY documented in this encounterChillicothe Va [facility] Center10-18-2023 Miscellaneous Notes* Telephone Encounter - Christie Phan MD - 03/10/2023 2:18 PM EDT Spoke with patient. We stopped her trulicity because of side effects. She only took the cymbalta for a week. She will restart and we will see how she is doing in 2 months. Have also ordered insulin labs to check for insulin resistance. documented in this [facility]10-09-[facility]23 Miscellaneous Notes* Telephone Encounter - Lynne Ni MD - 03/01/2023 3:27 PM EDT For chart: Eye exam 02/26/23 no ocular complication related to medication. * Telephone Encounter - Beatriz Sanchez LPN - 03/01/2023 2:38 PM EDT [facility] Placed on your desk for review. documented in this [facility]09-29-[facility] Nurse Note* Radha Kebede MA - 02/19/2023 11:48 AM EDT Patient Identification confirmed: yes. Injection given and documented on JUL per provider order. Radha Schofield MA documented in this [facility]09-29-2023 Instructions* Patient Instructions* Vera Najera MD - 02/19/2023 11:40 AM EDT B12 shot today and every 4 weeks. Continue Folic acid. Follow up in 8 Weeks - labs 1 week before. documented in this [facility]09-29-[facility] History of Present illness Narrative* Vera Najera MD - 02/19/2023 11:32 AM EDT Images from the original note were not included. AMBULATORY TELEPHONE VISIT Ariadna Haley has consented to this telephone encounter. Persons Present: Patient and myself Chief Complaint/Reason: Anemia; To review recent blood work. HPI: Total Time Spent: 21 minutes Rebekah Rojas APRN.CLINICAL RESEARCH SPEC NAME: Ariadna Haley CLINIC NO.: [id number] DATE OF SERVICE: February 19, 2023 (Marquis) [...] lower lip done 2 days ago at [facility] - awaiting results. B12 helps [...] injections. Shefollows with multiple doctors including and inside meter tester, rapid extractor operator, personal lines account executive and PCP. She has been told they [...] which included preparing to see the patient, uhzx-xi-xjwv patient care, completing clinical documentation, performing a medically appropriate examination, counseling and educating the patient/family/caregiver, ordering medications, tests, or p rocedures, and independently interpreting results (not separately reported). Vera Najera MD, CPE Hematology and Oncology Services Provided at: [place], [place] CC: Manuel Ferris MD [address] [facility] [id number] documented in this encounterChillicothe Va Medical Center09-26-2023 Miscellaneous Notes* Telephone Encounter - [...] Department RAYRAY INJECTION TEACHING [facility] NICKIE VIDEO SPEC EST 08/12/2023 9:00 AM [facility] NICKIE Last Ophthalmology Check for Plaquenil [...] diagnoses: Vitamin D deficiency documented in this encounterChillicothe Va Medical Center09-18-2023 Miscellaneous Notes* Telephone Encounter - Mirela Carlos - 02/08/2023 11:12 AM EDT Spoke with patient Will get labs done when she does labs in Dec for Sawyer/Onc Mailed orders for DXA to pt so she can go to [facility] Pre cert Benlyst Scheduled Teaching [...] density (1st time) patient requests order for Cotton Please schedule follow up office visit for [...] accordingly. Lynne Ni MD documented in this encounterChillicothe Va [facility] Center09-14-2023 History of Present illness Narrative* Carlene Rendon - 02/04/2023 9:31 AM EDT [facility] received prescription(s) for Benlysta from Dr. Ni. Benefits investigation was conducted, indicating that a prior authorization is required by patients plan with [facility]. Encounter will be updated once prior authorization has been submitted [facility] Carlene Rendon [facility], Inflammatory P: [phone] F: [phone] documented in this encounterChillicothe Va [facility] Center09-14-2023 History of Present illness Narrative* [...] visit. Either the patient or their legal food service representative has been informed of the [...] metoprolol for POTs, avoid aggravating triggers, terminal operations supervisor pain recommendations per primary care provider/pain clinic/patient [...] Due for eye exam. Labs sent to [facility]/completed in 06/2021 (no results faxed to office, but patient pulled up results on her phone). Chronic current pain in neck, flank area, mid back, knees, legs, arms, all over pain. Better with lyrica 75mg 3times a day. Reports pain 4-12/31. Couple hrs AM stiffness. COVID vaccine [employer] 09/28/20, 10/19/20, 05/26/21. Feels safe at home. [...] COVID-19 original vaccine, age 12+ yr, monovalent (Sogou - PURPLE TOP) 09/28/2020 10/19/2020 05/26/2021 COVID-19 vaccine, age 12+ yr, bivalent (Romark LaboratoriesNTTopera) 02/08/2022 Pneumovax no Flu shot no Tetanus [...] (33);NL cbc, cmp, negative hla b27; Outside Cotton 06/2021 low vitamin D 16, vitamin b12-307;high [...] rate M25.531, M25.532 Bilateral wrist pain Z79.52 [facility] current use of systemic steroids M81.8, T38.0X5A [...] may consider osteoporosis treatment if on terminal operations supervisor steroids/abnormal bmd, take vitamin D script if [...] metoprolol for POTs, avoid aggravating triggers, terminal operations supervisor pain recommendations per primary care provider/pain clinic/patient [...] (200mg) daily with a meal Please see manager nicu every 6-12months while on Hydroxychloroquine. Start azathioprine [...] touching your toes, sit-ups, using row machine care home pain recommendations per primary care provider/pain [...] video & audio (virtual) or phone or ynxj-bu-hkcv patient care, completing clinical documentation, obtaining and/or [...] De La Torre CNP;Dr.Douglas Sai Ferris MD [facility] AMBULATORY VISIT INTAKE QUESTIONNAIRE Question 02/02/2023 [...] Workers' Compensation? No Do you need an seafood process worker? No [facility] MUMTAZHART ZOOM MESSAGE Question 02/02/2023 10:32 [...] of Right Forearm or Lower Left Leg. [facility] PROMIS 10 ADULT SHORT FORM V1.0 GLOBAL [...] < or = 5) documented in this encounterChillicothe Va Medical Center09-14-2023 Instructions* Patient Instructions* Lynne Ni [...] (200mg) daily with a meal Please see manager nicu every 6-12months while on Hydroxychloroquine. azathioprine daily [...] touching your toes, sit-ups, using row machine care home pain recommendations per primary care provider/pain [...] your usual activities immediately. documented in this encounterChillicothe Va [facility] Center09-05-2023 Miscellaneous Notes* Telephone Encounter - Maynor Bryson MA - 01/26/2023 7:46 AM EDT patient has viewed the [employer] message per [employer]. * Telephone Encounter - Lynne Ni MD [...] accordingly. Lynne Ni MD documented in this encounterChillicothe Va [facility] Center09-01-2023 Nurse Note* Radha Kebede MA - 01/22/2023 12:17 PM EDT Patient Identification confirmed: yes. Injection given and documented on JUL per provider order. Radha Schofield MA documented in this encounterChillicothe Va Medical Center08-22-2023 Miscellaneous Notes* Telephone Encounter - [...] the above prescription(s) to electronically send to [facility] pharmacy. Milagro Mendiola MA documented in this encounterChillicothe Va Medical Center08-11-2023 History of Present illness Narrative* Misty Nelson MD - 01/01/2023 10:51 AM EDT VIRTUAL VISIT PROGRESS NOTE This is a virtual visit using [employer] video visit. It required patient-provider interaction for themedical decision making as documented below. I have communicated my name and active licensure. The patient's identity and physical location wereverified at the time of this visit. Either the patient or their legal food service representative has been informed of the [...] otitis or sinusitis No pneumonia She sees rapid extractor operator and was diagnosed with lupus She is on Plaquenil, azathioprine Prednisone 10mg once daily for the past year; every few months she gets treated with higher doses of prednisone for flares of her symptoms The medications seem to help the body aches She saw the director toxicology Treated with B12 and folic acid We [...] visit. Misty Nelson MD documented in this encounterChillicothe Va Medical Center07-28-2023 Miscellaneous Notes* Telephone Encounter - Rebekah Rojas APRN.CLINICAL RESEARCH SPEC - 12/18/2022 10:48 AM EDT Spoke with patient this morning, 12/18/2022. Rebekah Rojas APRN.TRUE * Telephone Encounter - Lidia Argueta RN - 12/18/2022 9:31 AM EDT Pt called director of laboratory operations service last evening stating she was suppose to have a phone call with Rebekah at 330 and never received a call. Pt is still waiting (536 pm 12/17/22). Please advise Lidia Argueta RN documented in this encounterChillicothe Va Medical Center07-28-2023 History of Present illness Narrative* [...] Total Time Spent: 21 minutes Rebekah Rojas APRN.CLINICAL RESEARCH SPEC NAME: Ariadna Haley CLINIC NO.: [id number] DATE OF SERVICE: October 22, 2022 ([place]quis) [...] lower lip done 2 days ago at [facility] - awaiting results. B12 helps [...] injections. Shefollows with multiple doctors including and inside meter tester, rapid extractor operator, personal lines account executive and PCP. She has been told they [...] which included preparing to see the patient, atsl-qg-zdql patient care, completing clinical documentation, performing a medically appropriate examination, counseling and educating the patient/family/caregiver, ordering medications, tests, or p rocedures, and independently interpreting results (not separately reported). Vera Najera MD, CPE Hematology and Oncology Services Provided at: [place], [place] CC: Manuel Ferris MD [address] [facility] [id number] documented in this encounterChillicothe Va Medical Center07-26-2023 Miscellaneous Notes* Telephone Encounter - Pamella Bettencourt RN - 12/16/2022 1:14 PM EDT Pt notified and verbalizes understanding. Clerical: Please change tomorrow's appointment to a phone visit at the end of Rebekah's day. Preferred number is [phone]. In addition, pt will be in next [...] schedule? Pamella Bettencourt RN documented in this encounterChillicothe Va Medical Center07-23-2023 Miscellaneous Notes* Telephone Encounter - [...] advise Enma Hamm RN documented in this encounterChillicothe Va Medical Center07-04-2023 Miscellaneous Notes* Telephone Encounter - [...] accordingly. Lynne Ni MD documented in this encounterChillicothe Va Medical Center06-29-2023 Nurse Note* Margret Cuenca - 11/19/2022 11:01 AM EDT Patient Identification confirmed: yes. Injection given and documented on JUL per provider order. Margret Cuenca documented in this [facility]06-01-2023 Nurse Note* Stacy Gutiérrez Ma - 10/22/2022 11:50 AM EDT Patient Identification confirmed: yes. Injection given and documented on JUL per provider order. Stacy Gutiérrez Ma documented in this [facility]06-01-2023 Instructions* Patient Instructions* Vera Najera MD - 10/22/2022 11:43 AM EDT B12 Shot today and every 4 weeks. Continue Folic acid. Follow up in 8 Weeks - labs 1 week before. documented in this [facility]06-01-2023 History of Present illness Narrative* Vera Najera MD - 10/22/2022 11:35 AM EDT Images from the original note were not included. NAME: Ariadna Haley CLINIC NO.: [id number] DATE OF SERVICE: October 22, 2022 (Marquis) [...] lower lip done 2 days ago at [facility] - awaiting results. B12 helps [...] injections. Shefollows with multiple doctors including and inside meter tester, rapid extractor operator, personal lines account executive and PCP. She has been told they [...] which included preparing to see the patient, yqxb-ij-sdwv patient care, completing clinical documentation, performing a medically appropriate examination, counseling and educating the patient/family/caregiver, ordering medications, tests, or p rocedures, and independently interpreting results (not separately reported). Vera Najera MD, CPE Hematology and Oncology Services Provided at: [place], [place] CC: Manuel Ferris MD [address] [facility] [id number] documented in this encounterChillicothe Va Medical Center05-04-2023 Nurse Note* Stacy Gutiérrez Ma - 09/24/2022 10:22 AM EDT Patient Identification confirmed: yes. Injection given and documented on JUL per provider order. Stacy Gutiérrez Ma documented in this encounterChillicothe Va Medical Center04-18-2023 Miscellaneous Notes* Telephone Encounter - Stacy Hernandez - 09/08/2022 2:27 PM EDT Pharmacy-Reviewed Medication History Patient Name:Jim Haley : 1980 Patient Contact Attempt: First attempt Adherence Packing Program Accepted? No, patient does not wish to participate. Patient is not eligible for adherence packaging because PCP is not within [facility]. Patient wishes to continue at [facility] since medication bottles will look the same and then she can pick-up the medications when she needs them. Stacy Hernandez September 08, 2022 2:28 PM [facility] [phone] documented in this encounterChillicothe Va Medical Center04-17-2023 History of Present illness Narrative* Christie Phan MD - 09/07/2022 2:00 PM EDT Images from the original note were not included. [facility] Virtual Follow-Up [...] which included preparing to see the patient, nebu-mf-jtjc patient care, completing clinical documentation, performing a medically appropriate examination, counseling and educating the patient/family/caregiver, ordering medications, tests, or p rocedures, and communicating with other HCPs (not separately reported). I have communicated my name and active licensure. The patient's identity and physical location wereverified at the time of this visit. Either the patient or their legal food service representative has been informed of the risks and benefits of -- and alternatives to -- treatment through a remote evaluation andconsents to proceed with the evaluation remotely. Christie Phan MD, MA, [facility] Lifestyle Medicine Specialist documented in this encounterChillicothe Va Medical Center04-17-2023 Nurse Note* Milagro Mendiola MA - 09/07/2022 2:00 PM EDT Called pt to do intake for video visit pt unavailable lft vm msg sent my chart. Milagro Mendiola MA documented in this [facility]04-10-2023 Miscellaneous Notes* Telephone Encounter - Shantel Higgins MA - 08/31/2022 8:38 AM EDT called [facility] pharmacy - pharmacy had 1 refill remaining no action needed from our office documented in this [facility]04-06-2023 Nurse Note* Stacy Gutiérrez Ma - 08/27/2022 10:31 AM EDT Patient Identification confirmed: yes. Injection given and documented on JUL per provider order. Stacy Gutiérrez Ma documented in this encounterGeorge Ville [address]-06-2023 History of Present illness Narrative* Rebekah Rojas APRN.TRUE - 08/27/2022 10:00 AM EDT Images from the original note were not included. NAME: TeraAriadna [facility] NO.: [id number] DATE OF SERVICE: August 27, 2022 (Bob) [...] injections. Shefollows with multiple doctors including and inside meter tester, rapid extractor operator, personal lines account executive and PCP. She has been told they [...] APRN.TRUE Hematology and Oncology Services Provided at: [place], [place] CC: Manuel Ferris MD [address] [facility] [address] I spent a total of 30 minutes on the date of the service which included preparing to see the patient, awzs-fw-rokh patient care, completing clinical documentation, obtaining and/or reviewing separately obtained history, performing a medically appropriate examination, counseling and educating the pat ient/family/caregiver, ordering medications, tests, or procedures, independently interpreting results (not separately reported), and communicating results to the patient/family/caregiver. documented in this encounterChillicothe Va Medical Center03-29-2023 Miscellaneous Notes* Telephone Encounter - [...] low vitamin b12- take over the counter 6762-1973 mcg daily. Improved/ normal rest of rheum [...] accordingly. Lynne Ni MD documented in this encounterChillicothe Va Medical Center03-28-2023 Miscellaneous Notes* Telephone Encounter - [...] accordingly. Lynne Ni MD documented in this encounterChillicothe Va Medical Center03-20-2023 Miscellaneous Notes* Telephone Encounter - Christie Phan MD - 08/10/2022 9:46 AM EDT [facility] requesting refill, patient never started according to the chart and I have not seen her in follow-up. * Telephone Encounter - Jami Everett Cma - 08/10/2022 7:40 AM EDT [facility] Pharmacy request for the following refill(s): Requested Prescriptions Pending Prescriptions Disp Refills DULoxetine (CYMBALTA) 20 mg capsule [Pharmacy Med Name: DULOXETINE HCL DR 20 MG CAP] 30 capsule 2 Sig: TAKE 1 CAPSULE BY MOUTH ONCE DAILY Please review and advise. Jami Everett Cma documented in this encounterChillicothe Va Medical Center03-06-2023 Instructions* Patient Instructions* Lexus Heck [...] treatment, there are resources available at the [facility] such as a nutrition consultation or referral to weight management programs at our [facility] [place]. Please let us know if we can [...] the central scheduling system for the [facility] [place] at [phone]. [facility] now offers direct scheduling for patients to schedule appointments. Virtual visits are also available. If not covered by your insurance, there is a 35% discount. Please contact your insurance to determine coverage. Call the office at [phone], option #5 for questions. documented in this encounterCh[facility]03[facility] History of Present illness Narrative* Lexus Heck APRN.CNP - 07/27/2022 10:30 AM EST Images from the original note were not included. [facility] Virtual [...] will have a prescription sent to a [employer] company - [employer] who will be calling you in the next 1-2 weeks or so. Please call them directly or us if you do not hear from them in this time frame. - Will request formal mask fitting - You should be eligible for new supplies approximately every 3-6 months, depending on your insurance coverage. - If your mask doesn't fit well, call the [employer] company before 30 days are up to [...] to ensure the besttime for you. [facility] on 04/13/22 CONSULT TO SLEEP MEDICINE - ADULT CPAP/BIPAP/OTHER PAP THERAPY ORDER Lawanda Miranda MD Interval history : Here for follow up for sleep apnea management. SLEEP APNEA Sleep apnea type : JOSE RAFAEL Most Recent Apnea-Hypopnea Index (AHI): 5.3 Treatment : PAP therapy DME: Josh MOJICA fax: [phone] DME ph: [phone] PAP History: Current PAP settin-15 cm H2O. [...] or near accidents due to drowsy drivin [place] Sleepiness Scale 04/12/2022 07/23/2022 Score 4 (No [...] medications, tests, or procedures. documented in this encounterChillicothe [facility]03-03-2023 Miscellaneous Notes* Telephone Encounter - [...] complete patient specific tasks. documented in this encounterChillic[facility]03-01-2023 Miscellaneous Notes* Telephone Encounter - Gem Mercedes RN - 07/22/2022 2:37 PM EST [employer] message sent documented in this [facility]12-28-20[facility] History of Present illness Narrative* Kenzie Shannon - 05/20/2022 2:28 PM EST Patient Identification confirmed: yes. Injection given and documented on JUL per provider order. Kenzie Shannon documented in this [facility]12-28-2022 Miscellaneous Notes* Addendum Note - Vera Najera MD - 05/20/2022 2:27 PM ESTAddended by: VERA NAJERA on: 05/20/2022 02:27 PM Modules accepted: Orders documented in this [facility]12-28-2022 Instructions* Patient Instructions* Vera Najera MD - 05/20/2022 2:23 PM EST B12 Shot Today and every 4 weeks Get fit for CPAP mask and setting this 05/28/2021 Continue Folic acid. RTC in 8 Weeks - labs 1 week before. documented in this [facility]12[facility]28[facility] History of Present illness Narrative* Vera Najera MD - 05/20/2022 1:30 PM EST Images from the original note were not included. NAME: Ariadna Haley CLINIC NO.: [id number] DATE OF SERVICE: May 20, 2022 ([facility]) [...] which included preparing to see the patient, rejf-yc-msth patient care, completing clinical documentation, performing a medically appropriate examination, counseling and educating the patient/family/caregiver, ordering medications, tests, or p rocedures, and independently interpreting results (not separately reported). Vera Najera MD, [facility] Hematology and Oncology Services Provided at: [place], [place] CC: Vera Najera [address] [place] [address] Dr [facility] Manuel Ferris MD, [address] [facility] [address] CC: Manuel Ferris MD [address] [facility] [address] documented in this encounterChillicothe [facility] Center12-13-2022 Miscellaneous Notes* Telephone Encounter - Gem Mercedes RN - 05/05/2022 2:39 PM EST Faxed order, office notes, demographics, and sleep study to: DME name: Josh Seo DME fax: [phone] DME ph: [phone] Confirmation received. documented in this encounterChillicothe [facility] Center12-13-2022 Miscellaneous Notes* Telephone Encounter - Gem Mercedes RN - 05/05/2022 12:00 PM EST [employer] Contact[employer] message sent documented in this encounterChillicothe [facility] Center12-13-2022 Miscellaneous Notes* Telephone Encounter - ANALILIA Monterroso - 05/05/2022 11:36 AM EST [facility] received your PAP order. Due to a major [employer] recall and manufacturing shortage, we are unable to fulfill the request to provide your patient with a CPAP/BIPAP machine at this time. We will keep the request on file and provide when inventory is available or you can forward the order to another DME provider such as [employer], [employer] or [employer]. Caring for our patients is our top priority and we apologize for this delay. Thank you for your patience during this time. [phone] #1 documented in this encounterChillicothe [facility] Center12-02-2022 Miscellaneous Notes* Telephone Encounter - [...] doctor has noted concern for EDS. Her rapid extractor operator has told her that she has Lupus. Based on her history, I noted we can offer in-person evaluations for herself and/or her son to see if any genetic testing may be useful. I validated and provided support on the difficulty with her ambulation and transport concerns. [facility] and only [facility] at [facility]. I offered social work and/or transport assistance for the visit. She declined this and will discuss with her regarding the transport. She verbalized understanding the reasons for in-person evaluation recommended. She has the [facility] line and will call to reschedule for an in-person evaluation at [facility]. Ny Lance MD Family Advocate, Associate Staff [facility] documented in this encounterChillicothe [facility] Center11-30-2022 Miscellaneous Notes* Telephone Encounter - [...] copy of the report. Confirmed patient's email [email or web address] Eliza Licea Genetic Counselor Certified Surgical First Assistant documented in this encounterChillicothe Va [facility] Center11-08-2022 Miscellaneous Notes* Telephone Encounter - Renate Lawrence MA - 03/31/2022 2:34 PM EST [facility] pharmacy electronically requests the following refill(s) Requested Prescriptions Pending Prescriptions Disp Refills DULoxetine (CYMBALTA) 20 mg capsule [Pharmacy Med Name: DULOXETINE HCL DR 20 MG CAP] 30 capsule 2 Sig: TAKE 1 CAPSULE BY MOUTH ONCE DAILY Renate Lawrence MA documented in this encounterChillicothe [facility] Center11-07-2022 Miscellaneous Notes* Telephone Encounter - Maria Eugenia Sheehan LPN - 03/30/2022 11:53 AM EST [facility] and sent MyChart regarding Dr. Nelson's directive. [...] Thanks. Misty Nelson MD documented in this [facility]11-07-2022 Miscellaneous Notes* Telephone Encounter - Maria Eugenia Sheehan LPN - 03/30/2022 11:49 AM EST [facility] and sent Click Contacthart regarding Dr. Nelson's directive. documented in this [facility]10-26-2022 Instructions* Patient Instructions* Vera Najera MD - 03/18/2022 11:16 AM EDT Referral for sleep study pending Start on Folic acid. RTC in 8 Weeks - labs 1 week before. documented in this encounterChillicothe [facility] Center10-26-2022 History of Present illness Narrative* Vera Najera MD - 03/18/2022 10:45 AM EDT Images from the original note were not included. NAME: Ariadna Haley CLINIC NO.: [id number] DATE OF SERVICE: March 18, 2022 ([facility]) [...] which included preparing to see the patient, nzyt-ii-cwjg patient care, completing clinical documentation, performing a medically appropriate examination, counseling and educating the patient/family/caregiver, ordering medications, tests, or p rocedures, and independently interpreting results (not separately reported). Vera Najera MD, [facility] Hematology and Oncology Services Provided at: [place], [place] CC: Manuel Ferris MD [address] [address] documented in this encounterChillicothe Va [facility] Center10-18-2022 History of Present illness Narrative* Misty Nelson MD - 03/10/2022 2:14 PM EDT VIRTUAL VISIT PROGRESS NOTE This is a virtual visit using [employer] video visit. It required patient-provider interaction for [...] the HR increases again She sees a water softener installer in [place] PCP is running the Holter and echo [...] but was not pursued yet Lives in [place] She did have LN biopsy in the [...] visit. Misty Nelson MD documented in this encounterChillicothe [facility] Center10-17-2022 History of Past illness Narrative* ProblemNoted DateDiagnosed DateResolved DateObesity, Class II, BMI 35-39.910//Obesity (BMI 30-39.9)documented as of this encounter (statuses as of 03/10/2023) [facility] History of Past illness Narrative* ProblemNoted Date Diagnosed DateResolved DateObesity, Class II, BMI 35-39.910// Obesity (BMI 30-39.9)documented as of this encounter (statuses as of 03/11/2023) [facility] History of Past illness Narrative* ProblemNoted Date Diagnosed DateResolved DateObesity, Class II, BMI 35-39.910// Obesity (BMI 30-39.9)documented as of this encounter (statuses as of 03/19/2023) [facility] History of Past illness Narrative* ProblemNoted Date Diagnosed DateResolved DateObesity, Class II, BMI 35-39.910// Obesity (BMI 30-39.9)documented as of this encounter (statuses as of 03/24/2023) [address]17-2022 History of Past illness Narrative* ProblemNoted Date Diagnosed DateResolved DateObesity, Class II, BMI 35-39.910// Obesity (BMI 30-39.9)documented as of this encounter (statuses as of 04/16/2023) [address]17-2022 History of Past illness Narrative* ProblemNoted Date Diagnosed DateResolved DateObesity, Class II, BMI 35-39.910// Obesity (BMI 30-39.9)documented as of this encounter (statuses as of 04/23/2023) [facility] of Past illness Narrative* ProblemNoted Date Diagnosed DateResolved DateObesity, Class II, BMI 35-39.910// Obesity (BMI 30-39.9)documented as of this encounter (statuses as of 04/27/2023) [address]17-2022 History of Past illness Narrative* ProblemNoted Date Diagnosed DateResolved DateObesity, Class II, BMI 35-39.910// Obesity (BMI 30-39.9)documented as of this encounter (statuses as of 04/27/2023) [address]17-2022 History of Past illness Narrative* ProblemNoted Date Diagnosed DateResolved DateObesity, Class II, BMI 35-39.910// Obesity (BMI 30-39.9)documented as of this encounter (statuses as of 05/31/2023) [address]17-2022 History of Past illness Narrative* ProblemNoted Date Diagnosed DateResolved DateObesity, Class II, BMI 35-39.910// Obesity (BMI 30-39.9)documented as of this encounter (statuses as of 07/13/2023) [address]17-2022 History of Past illness Narrative* ProblemNoted Date Diagnosed DateResolved DateObesity, Class II, BMI 35-39.910// Obesity (BMI 30-39.9)documented as of this encounter (statuses as of 07/13/2023) [address]17-2022 History of Past illness Narrative* ProblemNoted Date Diagnosed DateResolved DateObesity, Class II, BMI 35-39.910/ Obesity (BMI 30-39.9)documented as of this encounter (statuses as of 08/05/2023) [address]17-2022 History of Past illness Narrative* ProblemNoted Date Diagnosed DateResolved DateObesity, Class II, BMI 35-39.910// Obesity (BMI 30-39.9)documented as of this encounter (statuses as of 08/12/2023) [address]17-2022 History of Past illness Narrative* ProblemNoted Date Diagnosed DateResolved DateObesity, Class II, BMI 35-39.910/ Obesity (BMI 30-39.9)documented as of this encounter (statuses as of 09/01/2023) [address]17-2022 History of Past illness Narrative* ProblemNoted Date Diagnosed DateResolved DateObesity, Class II, BMI 35-39.910/ Obesity (BMI 30-39.9)documented as of this encounter (statuses as of 09/06/2023) [address]17-2022 History of Past illness Narrative* ProblemNoted Date Diagnosed DateResolved DateObesity, Class II, BMI 35-39.9121 Obesity (BMI 30-39.9)/documented as of this encounter (statuses as of 09/11/2023) [facility] Instructions* Patient Instructions* Christie Phan MD - 03/09/2022 12:47 PM EDT Check EKG for prolonged QT. If normal, I would try going back on the Lexapro, can recheck an EKG inabout a month to make sure that things are going ok. (I'm leaving this, but we are changing to Cymbalta) Tilt Table Test [email or web address] documented in this encounterChillicothe Va [facility] Center10-17-2022 History of Present illness Narrative* Christie Phan MD - 03/09/2022 12:08 PM EDT Images from the original note were not included. 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 documented in this encounterChillicothe [facility] Center10-14-2022 Miscellaneous Notes* Telephone Encounter - Krista Braswell MA - 03/06/2022 7:08 AM EDT Pt was notified via . * Telephone Encounter - Lynne Ni MD - 03/05/2022 5:56 PM EDT Please Call patient if MyChart note not read to review results/released to My Chart if tests completed at [facility]: Mildly high vitamin b12- decrease [...] accordingly. Lynne Ni MD documented in this encounterChillicothe [facility] Center10-12-2022 Instructions* Patient Instructions* Vear Najera MD - 03/04/2022 11:42 AM EDT Labs today. Referral for sleep study. RTC in 2 weeks. Consider immunology referral. Referral to lifestyle medicine documented in this encounterChillicothe Va Medical Center10-12-2022 History of Present illness Narrative* Vera Najera MD - 03/04/2022 11:19 AM EDT Images from the original note were not included. NAME: Ariadna Haley [facility] NO.: [id number] DATE OF SERVICE: March 04, 2022 Referring [...] which included preparing to see the patient, szor-xq-mawi patient care, completing clinical documentation, obtaining and/or reviewing separately obtained history, performing a medically appropriate examination, counseling and educating the pat ient/family/caregiver, ordering medications, tests, or procedures, and independently interpreting results (not separately reported). Vera Najera MD, CPE Hematology and Oncology Services Provided at: [place], [place] CC: Manuel Ferris MD [address] [place] [address] Manuel Ferris MD, MD [address] [place], [place] [id number] documented in this encounterChillicothe [facility] Center2022 History of Present illness Narrative* Alhaji Victoria, - 02/24/2022 6:00 PM EDT VIRTUAL VISIT PROGRESS NOTE This is a virtual visit using [employer] video visit. 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 Most of her travel is [...] DO February 24, 2022 documented in this encounterChillicothe Va [facility] Center07-06-2022 Evaluation note* Encounter Date [...] see rheumatology and is on hydroxychloroquine. Her rapid extractor operator is Dr. Ni. Dr. Ni and [...] (ICD-10 - R00.0) Nov,Flushing (ICD-10 - R23.2) [facility] Other 06-03-2022 Nurse Note* Lynne Ni MD - 10/24/2021 8:32 AM EDT See progress note documented in this encounterChillicothe Va Medical Center06-03-2022 History of Present illness [...] Due for eye exam. Labs sent to [facility]/completed in 06/2021 (no results faxed to office, [...] Date(s) Administered COVID-19 vaccine, age 12+ yr (Sogou - PURPLE TOP) 09/28/2020 10/19/2020 Pneumovax no [...] Diagnostic tests reviewed for today's visit: Outside [place] 06/2021 low vitamin D 16, vitamin b12-307;high [...] Due for eye exam. Labs sent to [facility]/completed in 06/2021 (no results faxed to office, [...] (200mg) daily with a meal Please see manager nicu every 6-12months while on Hydroxychloroquine. 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 With SOME difficulty Bend down to bead picker clothing from the floor? With SOME [...] my health Strongly Agree documented in this encounterChillicothe Va [facility] Center06-03-2022 Instructions* Patient Instructions* Lynne [...] (200mg) daily with a meal Please see manager nicu every 6-12months while on Hydroxychloroquine. Recommend goal: [...] touching your toes, sit-ups, using row machine care home pain recommendations per primary care provider/pain clinic Thank you. documented in this encounterChillicothe [facility] Center05-25-2022 Evaluation note* Encounter Date [...] lupus diagnosis Iwill defer that to her rapid extractor operator. September,Tachycardia (ICD-10 - R00.0) September,Flushing (ICD-10 - R23.2) [facility] Other 04-28-2022 Evaluation note* Encounter Date Diagnosis Assessment Notes Treatment Notes Treatment Clinical Notes Aug, Elevated sed rate (ICD-10 - R70. 0) [facility] Other 04-21-2022 Evaluation note* Encounter Date Diagnosis [...] lupus diagnosis Iwarabella defer that to her rapid extractor operator. [facility] Other 05-17-2021 Hospital Discharge instructions* Instructions* So [...] * nitroglycerin (oral/sublingual) (Burmese) documented [facility] this [facility] Phone: 1(165) 332-480905-17-2021 History of Present illness Narrative* So [place] [...] needs to be completed. documented in this encounterDetwiler Memorial HospitalProject [employer] Phone: [phone] History of Past illness Narrative* Problem Noted DateResolved DateObesity (BMI 30-39.9)documented as of this encounter (statuses as of 10/24/2021) [facility] of [facility] illness Narrative* ProblemNoted Date Resolved DateObesity (BMI 30-39.9)documented as of this encounter (statuses as of 02/25/2022) [facility] of [facility] illness Narrative* ProblemNoted Date Resolved DateObesity (BMI 30-39.9)documented as of this encounter (statuses as of 03/02/2022) [facility] of [facility] illness Narrative* ProblemNoted Date Resolved DateObesity (BMI 30-39.9)documented as of this encounter (statuses as of 03/04/2022) [facility] of [facility] illness Narrative* ProblemNoted Date Resolved DateObesity (BMI 30-39.9)documented as of this encounter (statuses as of 03/05/2022) [facility] of [facility] illness Narrative* ProblemNoted Date Resolved DateObesity (BMI 30-39.9)documented as of this encounter (statuses as of 03/06/2022) [facility] of [facility] Narrative* ProblemNoted Date Resolved DateObesity (BMI 30-39.9)documented as of this encounter (statuses as of 03/09/2022) [facility] of [facility] Narrative* ProblemNoted Date Resolved DateObesity (BMI 30-39.9)documented as of this encounter (statuses as of 03/10/2022) [facility] of [facility] Narrative* ProblemNoted Date Resolved DateObesity (BMI 30-39.9)documented as of this encounter (statuses as of 03/10/2022) [facility] of [facility] Narrative* ProblemNoted Date Resolved DateObesity (BMI 30-39.9)documented as of this encounter (statuses as of 03/12/2022) [facility] Narrative* ProblemNoted Date Resolved DateObesity (BMI 30-39.9)documented as of this encounter (statuses as of 03/18/2022) [facility] of [facility] Narrative* ProblemNoted Date Resolved DateObesity (BMI 30-39.9)documented as of this encounter (statuses as of 03/22/2022) [address]08-2015 History of Past illness Narrative* ProblemNoted Date Resolved DateObesity (BMI 30-39.9)documented as of this encounter (statuses as of 03/30/2022) [facility] Narrative* ProblemNoted Date Resolved DateObesity (BMI 30-39.9)documented as of this encounter (statuses as of 03/30/2022) [address]08-2015 History of Past illness Narrative* ProblemNoted Date Resolved DateObesity (BMI 30-39.9)documented as of this encounter (statuses as of 04/03/2022) [facility] Narrative* ProblemNoted Date Resolved DateObesity (BMI 30-39.9)documented as of this encounter (statuses as of 04/03/2022) [facility] Narrative* ProblemNoted Date Resolved DateObesity (BMI 30-39.9)documented as of this encounter (statuses as of 04/22/2022) [facility] Narrative* ProblemNoted Date Resolved DateObesity (BMI 30-39.9)documented as of this encounter (statuses as of 04/24/2022) [facility] Narrative* ProblemNoted Date Resolved DateObesity (BMI 30-39.9)documented as of this encounter (statuses as of 05/05/2022) [facility] Narrative* ProblemNoted Date Resolved DateObesity (BMI 30-39.9)documented as of this encounter (statuses as of 05/05/2022) [facility] Narrative* ProblemNoted Date Resolved DateObesity (BMI 30-39.9)documented as of this encounter (statuses as of 05/05/2022) [facility] Narrative* ProblemNoted Date Resolved DateObesity (BMI 30-39.9)documented as of this encounter (statuses as of 05/26/2022) [facility] Narrative* ProblemNoted Date Resolved DateObesity (BMI 30-39.9)documented as of this encounter (statuses as of 05/27/2022) [facility] Narrative* ProblemNoted Date Resolved DateObesity (BMI 30-39.9)documented as of this encounter (statuses as of 07/22/2022) [facility] Narrative* ProblemNoted Date Resolved DateObesity (BMI 30-39.9)documented as of this encounter (statuses as of 07/25/2022) [facility] Narrative* ProblemNoted Date Resolved DateObesity (BMI 30-39.9)documented as of this encounter (statuses as of 07/27/2022) [facility] Narrative* ProblemNoted Date Resolved DateObesity (BMI 30-39.9)documented as of this encounter (statuses as of 07/28/2022) [facility] Narrative* ProblemNoted Date Resolved DateObesity (BMI 30-39.9)documented as of this encounter (statuses as of 08/10/2022) [facility] Narrative* ProblemNoted Date Resolved DateObesity (BMI 30-39.9)documented as of this encounter (statuses as of 08/18/2022) [facility] Narrative* ProblemNoted Date Resolved DateObesity (BMI 30-39.9)documented as of this encounter (statuses as of 08/19/2022) [facility] Narrative* ProblemNoted Date Resolved DateObesity (BMI 30-39.9)documented as of this encounter (statuses as of 08/27/2022) [facility] Narrative* ProblemNoted Date Resolved DateObesity (BMI 30-39.9)documented as of this encounter (statuses as of 08/29/2022) [facility] Narrative* ProblemNoted Date Resolved DateObesity (BMI 30-39.9)documented as of this encounter (statuses as of 08/31/2022) [facility] Narrative* ProblemNoted Date Resolved DateObesity (BMI 30-39.9)documented as of this encounter (statuses as of 09/08/2022) [address]08-2015 History of Past illness Narrative* ProblemNoted Date Resolved DateObesity (BMI 30-39.9)documented as of this encounter (statuses as of 09/08/2022) [facility]01-[facility]2015 History of Past illness Narrative* ProblemNoted Date Resolved DateObesity (BMI 30-39.9)documented as of this encounter (statuses as of 09/24/2022) [facility]2015 History of Past illness Narrative* ProblemNoted Date Resolved DateObesity (BMI 30-39.9)documented as of this encounter (statuses as of 10/22/2022) [address]08-2015 History of Past illness Narrative* ProblemNoted Date Resolved DateObesity (BMI 30-39.9)documented as of this encounter (statuses as of 10/25/2022) [facility]2015 History of Past illness Narrative* ProblemNoted Date Resolved DateObesity (BMI 30-39.9)documented as of this encounter (statuses as of 11/19/2022) [address]08-2015 History of Past illness Narrative* ProblemNoted Date Resolved DateObesity (BMI 30-39.9)documented as of this encounter (statuses as of 11/25/2022) [facility]-2015 History of Past illness Narrative* ProblemNoted Date Diagnosed DateResolved DateObesity (BMI 30-39.9)documented as of this encounter (statuses as of 12/08/2022) [facility] History of Past illness Narrative* ProblemNoted Date Diagnosed DateResolved DateObesity (BMI 30-39.9)documented as of this encounter (statuses as of 12/18/2022) [facility]2015 History of Past illness Narrative* ProblemNoted Date Diagnosed DateResolved DateObesity (BMI 30-39.9)documented as of this encounter (statuses as of 12/18/2022) [facility]2015 History of Past illness Narrative* ProblemNoted Date Diagnosed DateResolved DateObesity (BMI 30-39.9)documented as of this encounter (statuses as of 12/21/2022) [facility]2015 History of Past illness Narrative* ProblemNoted Date Diagnosed DateResolved DateObesity (BMI 30-39.9)documented as of this encounter (statuses as of 12/22/2022) [facility]2015 History of Past illness Narrative* ProblemNoted Date Diagnosed DateResolved DateObesity (BMI 30-39.9)documented as of this encounter (statuses as of 01/02/2023) [facility]2015 History of Past illness Narrative* ProblemNoted Date Diagnosed DateResolved DateObesity (BMI 30-39.9)documented as of this encounter (statuses as of 01/13/2023) [facility] History of Past illness Narrative* ProblemNoted Date Diagnosed DateResolved DateObesity (BMI 30-39.9)documented as of this encounter (statuses as of 01/22/2023) [facility] History of Past illness Narrative* ProblemNoted Date Diagnosed DateResolved DateObesity (BMI 30-39.9)documented as of this encounter (statuses as of 01/26/2023) [facility] History of Past illness Narrative* ProblemNoted Date Diagnosed DateResolved DateObesity (BMI 30-39.9)documented as of this encounter (statuses as of 02/04/2023) [facility] History of Past illness Narrative* ProblemNoted Date Diagnosed DateResolved DateObesity (BMI 30-39.9)documented as of this encounter (statuses as of 02/04/2023) [facility] History of Past illness Narrative* ProblemNoted Date Diagnosed DateResolved DateObesity (BMI 30-39.9)documented as of this encounter (statuses as of 02/07/2023) [facility]2015 History of Past illness Narrative* ProblemNoted Date Diagnosed DateResolved DateObesity (BMI 30-39.9)documented as of this encounter (statuses as of 02/08/2023) [facility]2015 History of Past illness Narrative* ProblemNoted Date Diagnosed DateResolved DateObesity (BMI 30-39.9)documented as of this encounter (statuses as of 02/16/2023) [facility] History of Past illness Narrative* ProblemNoted Date Diagnosed DateResolved DateObesity (BMI 30-39.9)documented as of this encounter (statuses as of 02/19/2023) [address]08-2015 History of Past illness Narrative* ProblemNoted Date Diagnosed DateResolved DateObesity (BMI 30-39.9)documented as of this encounter (statuses as of 02/21/2023) [facility]2015 History of Past illness Narrative* ProblemNoted Date Diagnosed DateResolved DateObesity (BMI 30-39.9)documented as of this encounter (statuses as of 03/02/2023) [facility] Diagnosis Other systemic [...] and myositis, unspecified [facility] Diagnosis Swelling of lymph nodes- Primary Enlargement of lymph nodes Other systemic lupus erythematosus with other organ involvement (HCC) On prednisone therapy Hair loss Alopecia, unspecified Bilateral sacroiliitis (HCC) Long-term use of Plaquenil Encounter for long-term (current) use of other medications [facility] Diagnosis Vitamin B12 deficiency- Primary Other B-complex deficiencies Vitamin D deficiency Unspecified vitamin D deficiency Elevated sed rate Elevated sedimentation rate Elevated C-reactive protein (CRP) [facility] Diagnosis 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 Other vitamin B12 deficiency anemia Somnolence, daytime Hypersomnia, unspecified Snoring Other dyspnea and respiratory abnormality Chronic fatigue and malaise Chronic fatigue syndrome Obesity, unspecified classification, unspecified obesity type, unspecified whether serious comorbidity present [facility] Diagnosis Obesity, Class II, BMI 35-39.9- [...] nonspecific immunological findings [facility] Megaloblastic anemia due to vitamin B12 deficiency- Primary Other vitamin B12 deficiency anemia High total serum IgM [facility] Diagnosis Raised level of immunoglobulins- Primary Other and unspecified nonspecific immunological findings Wound healing, delayed Open wound(s) (multiple) of unspecified site(s), complicated Current smoker Tobacco use disorder [facility] Family history of genetic disease- Primary Family history of other condition [facility] Diagnosis High total serum IgM- Primary Elevated sed rate Elevated sedimentation rate Somnolence, daytime Hypersomnia, unspecified JOSE RAFAEL (obstructive sleep apnea) Obstructive sleep apnea (adult) (pediatric) [facility] Diagnosis Megaloblastic anemia due to vitamin B12 deficiency- Primary Other vitamin B12 deficiency anemia Elevated sed rate Elevated sedimentation rate [facility] Diagnosis Megaloblastic anemia due to vitamin B12 deficiency- Primary Other vitamin B12 deficiency anemia Elevated sed rate Elevated sedimentation rate High total serum IgM Chronic fatigue and malaise Chronic fatigue syndrome [facility] Diagnosis JOSE RAFAEL (obstructive sleep apnea)- Primary Obstructive sleep apnea (adult) (pediatric) [facility] Diagnosis Other systemic lupus erythematosus with other organ involvement (HCC)- Primary Family history of Crohn's disease Family history of other digestive disorders Fibromyalgia Mylagia and myositis, unspecified [facility] Diagnosis Other systemic lupus erythematosus with other organ involvement (HCC)- Primary Elevated LFTs Other abnormal blood chemistry Anemia of chronic disease Anemia of other chronic disease 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 Encounter for long-term (current) use of other medications [facility] Megaloblastic anemia due to vitamin B12 deficiency- Primary Other vitamin B12 deficiency anemia Elevated sed rate Elevated sedimentation rate [facility] Megaloblastic anemia due to vitamin B12 deficiency- Primary Other vitamin B12 deficiency anemia Elevated sed rate Elevated sedimentation rate High total serum IgM Chronic fatigue and malaise Chronic fatigue syndrome JOSE RAFAEL (obstructive sleep apnea) Obstructive sleep apnea (adult) (pediatric) [facility] Diagnosis Vitamin D deficiency Unspecified vitamin D deficiency [facility] Diagnosis Obesity, Class III, BMI >= 40- Primary Morbid obesity Polypharmacy Encounter for long-term (current) use of other medications Pre-diabetes Other abnormal glucose [facility] Diagnosis Megaloblastic anemia due to vitamin B12 deficiency- Primary Other vitamin B12 deficiency anemia Elevated sed rate Elevated sedimentation rate [facility] Diagnosis Megaloblastic anemia due to vitamin B12 deficiency- Primary Other vitamin B12 deficiency anemia Elevated sed rate Elevated sedimentation rate [facility] Diagnosis Megaloblastic anemia due to vitamin B12 deficiency- Primary Other vitamin B12 deficiency anemia Elevated sed rate Elevated sedimentation rate High total serum IgM Chronic fatigue and malaise Chronic fatigue syndrome Obstructive sleep apnea syndrome Obstructive sleep apnea (adult) (pediatric) [facility] Diagnosis Megaloblastic anemia due to vitamin B12 deficiency- Primary Other vitamin B12 deficiency anemia Elevated sed rate Elevated sedimentation rate [facility] Diagnosis Other systemic lupus erythematosus with other organ involvement (HCC) Encounter for care home current use of azathioprine Encounter for long-term (current) use of other medications [facility] Diagnosis Megaloblastic anemia due to vitamin B12 deficiency- Primary Other vitamin B12 deficiency anemia Chronic fatigue and malaise Chronic fatigue syndrome [facility] Diagnosis High total serum IgM- Primary Low serum IgG for age Current smoker Tobacco use disorder [facility] Diagnosis Obesity, Class II, BMI 35-39.9 Obesity, unspecified Prediabetes Other abnormal glucose [facility] Diagnosis Megaloblastic anemia [...] C-reactive protein (CRP) [facility] Diagnosis Other systemic lupus erythematosus [...] Bilateral wrist pain 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, 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 Encounter for long-term (current) use of steroids Steroid-induced osteoporosis Other osteoporosis 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 [facility] Diagnosis Systemic lupus erythematosus with other organ involvement (HCC)- Primary [facility] Diagnosis Megaloblastic anemia due to vitamin B12 deficiency- Primary Other vitamin B12 deficiency anemia High total serum IgM Elevated sed rate Elevated sedimentation rate [facility] Diagnosis Other systemic lupus erythematosus with other organ involvement (HCC)- Primary [facility] Diagnosis Other systemic lupus erythematosus with other organ involvement (HCC) Encounter for care home current use of azathioprine Encounter for long-term (current) use of other medications [facility] Diagnosis Megaloblastic anemia due to vitamin B12 deficiency- Primary Other vitamin B12 deficiency anemia Elevated sed rate Elevated sedimentation rate [facility] Diagnosis Megaloblastic anemia due to [...] Chronic pain syndrome documented in this encounter [facility] note* Diagnosis Systemic lupus erythematosus, unspecified SLE type, unspecified organ involvement status (HCC)- Primary [facility] Diagnosis Megaloblastic anemia due to vitamin B12 deficiency- Primary Other vitamin B12 deficiency anemia Elevated sed rate Elevated sedimentation rate documented in this encounter [facility] note* Diagnosis Megaloblastic anemia due to vitamin B12 deficiency- Primary Other vitamin B12 deficiency anemia Elevated sed rate Elevated sedimentation rate documented in this encounter [facility] note* Diagnosis Obesity, Class III, BMI >= 40- Primary Morbid obesity FUO (fever of unknown origin) Fever, unspecified Other chronic pain [facility] Diagnosis Obesity, Class III, BMI >= 40 Morbid obesity [facility] Diagnosis Obesity, Class III, BMI >= 40- Primary Morbid obesity Other chronic pain documented in this encounter [facility] note* Diagnosis Irregular heart rate- Primary Essential hypertension Unspecified essential hypertension Autonomic dysfunction Obstructive sleep apnea syndrome Obstructive sleep apnea (adult) (pediatric) Primary hypertension Unspecified essential hypertension documented in this encounter [facility] Work Phone: Evaluation note* Diagnosis Autoimmune disease (CMS/HCC)- Primary Autoimmune disease, not elsewhere classified Autonomic dysfunction Lumbosacral radiculopathy Thoracic or lumbosacral neuritis or radiculitis, unspecified Bilateral leg weakness Muscle weakness (generalized) [facility] Diagnosis Shortness of breath- Primary Paroxysmal supraventricular tachycardia PAC (premature atrial contraction) Supraventricular premature beats Current smoker Systemic lupus erythematosus, unspecified SLE type, unspecified organ involvement status (CMS/HCC) Palpitations Obstructive sleep apnea syndrome Obstructive sleep apnea (adult) (pediatric) Morbid obesity (CMS/HCC) Morbid obesity Bilateral lower extremity edema documented in this encounter [facility] Work Phone: Evaluation note* Diagnosis Megaloblastic anemia due to vitamin B12 deficiency- Primary Other vitamin B12 deficiency anemia Elevated sed rate Elevated sedimentation rate [facility] Diagnosis Systemic lupus erythematosus with other organ involvement (HCC)- Primary [facility] Diagnosis Systemic lupus erythematosus with other organ involvement (HCC)- Primary [facility] Diagnosis Megaloblastic anemia due to vitamin B12 deficiency- Primary Other vitamin B12 deficiency anemia Elevated sed rate Elevated sedimentation rate [facility] Diagnosis Other systemic lupus erythematosus with other organ involvement (HCC)- Primary Vitamin D deficiency Unspecified vitamin D deficiency Elevated LFTs Other abnormal blood chemistry Anemia of chronic disease Anemia of other chronic disease Elevated sed rate Elevated sedimentation rate Elevated C-reactive protein (CRP) [facility] Diagnosis Megaloblastic anemia due to vitamin B12 deficiency- Primary Other vitamin B12 deficiency anemia Obstructive sleep apnea syndrome Obstructive sleep apnea (adult) (pediatric) Chronic fatigue and malaise Chronic fatigue syndrome High total serum IgM JOSE RAFAEL (obstructive sleep apnea) Obstructive sleep apnea (adult) (pediatric) Somnolence, daytime Hypersomnia, unspecified [facility] Diagnosis Elevated sed rate- Primary Elevated sedimentation rate Megaloblastic anemia due to vitamin B12 deficiency Other vitamin B12 deficiency anemia [facility] Diagnosis Other systemic [...] other medications Long-term use of high-risk 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 Encounter for long-term (current) use of steroids 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 Bilateral hand pain Pain in limb History of vitamin D deficiency Personal history of nutritional deficiency [facility] Diagnosis Elevated sed rate- Primary Elevated sedimentation rate Megaloblastic anemia due to vitamin B12 deficiency Other vitamin B12 deficiency anemia [facility] Diagnosis Other systemic lupus erythematosus with other organ involvement (HCC) 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 Encounter for long-term (current) use of other medications [facility] Diagnosis Systemic lupus erythematosus with other organ involvement (HCC)- Primary [facility] Vitamin B12 deficiency- Primary Other B-complex deficiencies [facility] Diagnosis Elevated sed rate- Primary Elevated sedimentation rate Megaloblastic anemia due to vitamin B12 deficiency Other vitamin B12 deficiency anemia [facility] Diagnosis Elevated sed rate- Primary Elevated sedimentation rate Megaloblastic anemia due to vitamin B12 deficiency Other vitamin B12 deficiency anemia [facility] Diagnosis Megaloblastic anemia due to vitamin B12 deficiency- Primary Other vitamin B12 deficiency anemia Elevated sed rate Elevated sedimentation rate Obstructive sleep apnea syndrome Obstructive sleep apnea (adult) (pediatric) [facility] Elevated LFTs- Primary Other abnormal blood chemistry Elevated C-reactive protein (CRP) Elevated sed rate Elevated sedimentation rate Vitamin D deficiency Unspecified vitamin D deficiency Screening-pulmonary TB Screening examination for pulmonary tuberculosis [facility] Diagnosis Other systemic lupus erythematosus with other organ involvement (HCC) [facility] Diagnosis Systemic lupus erythematosus with other organ involvement (HCC)- Primary [facility] Diagnosis Elevated sed rate- Primary Elevated sedimentation rate Megaloblastic anemia due to vitamin B12 deficiency Other vitamin B12 deficiency anemia [facility] Diagnosis Pseudomonas infection- Primary Pseudomonas infection in conditions classified elsewhere and of unspecified site Other systemic lupus erythematosus with other organ involvement (HCC) On prednisone therapy Long-term use of Plaquenil Encounter for long-term (current) use of other medications [facility] Diagnosis Onset Date Resolution Status Lupus acuteRecurrent Clostridioides difficile diarrheaacuteNipple discharge in female acuteRecurrent Clostridioides difficile diarrheaacuteLumbosacral spondylosis acuteOther chronic painacuteSacroiliitisacute [facility] Work Phone: Evaluation note* Diagnosis JOSE RAFAEL (obstructive sleep apnea)- Primary Obstructive sleep apnea (adult) (pediatric) Somnolence, daytime Hypersomnia, unspecified [facility] Diagnosis Systemic lupus erythematosus with other organ involvement (HCC)- Primary [facility] Diagnosis Systemic lupus erythematosus with other organ involvement (HCC)- Primary [facility] Diagnosis Onset Date Resolution Status Nipple discharge in female acuteRecurrent Clostridioides difficile diarrheaacuteLumbosacral spondylosis acuteOther chronic painacuteSacroiliitisacute [facility] Work Phone: Evaluation note* Diagnosis Elevated sed rate- Primary Elevated sedimentation rate Megaloblastic anemia due to vitamin B12 deficiency Other vitamin B12 deficiency anemia [facility] Diagnosis Onset Date Resolution Status Nipple discharge in female acuteRecurrent Clostridioides difficile diarrheaacuteLumbosacral spondylosis acuteOther chronic painacuteSacroiliitisacuteLumbosacral spondylosisacuteOther chronic painacuteSacroiliitisacute [facility] Work Phone: Evaluation note* Diagnosis Lumbosacral radiculopathy at L5 Degenerative disc disease, lumbar Cervical radiculopathy at C5 [facility] Diagnosis Onset Date Resolution Status Lumbosacral spondylosis acuteOther chronic painacuteSacroiliitisacuteLumbosacral spondylosisacuteOther chronic painacuteSacroiliitisacute [facility] Work Phone: Evaluation note* Diagnosis Other systemic lupus erythematosus with other organ involvement (HCC) [facility] Diagnosis Other systemic [...] both feet Long-term use of high-risk medication [facility] current use of systemic steroids Encounter for long-term (current) use of steroids Bilateral hand pain Pain in limb Systemic lupus erythematosus, unspecified SLE type, unspecified organ involvement status (HCC) Vitamin B12 deficiency Other B-complex deficiencies Discoid lupus erythematosus Lupus erythematosus [facility] Nipple discharge Other sign and symptom in breast documented [facility] Diagnosis Elevated sed rate- Primary Elevated sedimentation rate Megaloblastic anemia due to vitamin B12 deficiency Other vitamin B12 deficiency anemia [facility] Diagnosis Abnormal uterine bleeding (AUB) Menorrhagia with regular cycle documented in this encounter [facility]* Diagnosis Megaloblastic anemia due to vitamin B12 deficiency- Primary Other vitamin B12 deficiency anemia High total serum IgM JOSE RAFAEL (obstructive sleep apnea) Obstructive sleep apnea (adult) (pediatric) Elevated sed rate Elevated sedimentation rate Hypogammaglobulinemia (HCC) Hypogammaglobulinaemia, unspecified Frequent infections [facility] Oral thrush- Primary Candidiasis of mouth documented [facility] [facility]* Diagnosis Oral thrush- Primary Candidiasis of mouth documented in this encounter [facility] HealthcareEvaluation note* Diagnosis Systemic lupus erythematosus with other organ involvement (HCC)- Primary [facility] LPRD (laryngopharyngeal reflux disease)- Primary Acute laryngitis, without mention of obstruction Acute otalgia, right documented in this encounter [facility] HealthcareEvaluation note* Diagnosis Autoimmune disease ([facility]/HCC) Autoimmune disease, not elsewhere classified Fibromyalgia Unspecified myalgia and myositis Numbness Disturbance of skin sensation documented in this encounter [facility] HealthcareEvaluation note* Diagnosis Lumbosacral radiculopathy at L5- Primary Degenerative disc disease, lumbar Cervical radiculopathy at C5 documented in this encounter [facility] HealthcareEvaluation note* Diagnosis Degenerative disc disease, lumbar- Primary Lumbosacral radiculopathy at L5 documented in this encounter [facility] HealthcareEvaluation note* Diagnosis Frequent infections- Primary Megaloblastic anemia due to vitamin B12 deficiency Other vitamin B12 deficiency anemia Elevated sed rate Elevated sedimentation rate Hypogammaglobulinemia (HCC) Hypogammaglobulinaemia, unspecified Bilateral leg weakness Other musculoskeletal symptoms referable to limbs Discoid lupus erythematosus Lupus erythematosus [facility] Well woman exam with routine gynecological exam Routine gynecological examination Breast cancer screening by mammogram Breast nodule Other (abnormal) findings on radiological examination of breast [facility] Diagnosis Megaloblastic anemia due to vitamin B12 deficiency- Primary Other vitamin B12 deficiency anemia Hypogammaglobulinemia (HCC) Hypogammaglobulinaemia, unspecified Positive blood cultures Bacteremia Malaise and fatigue Other malaise and fatigue SOB (shortness of breath) Shortness of breath [facility] Diagnosis Elevated sed rate- Primary Elevated sedimentation rate Megaloblastic anemia due to vitamin B12 deficiency Other vitamin B12 deficiency anemia Hypogammaglobulinemia (HCC) Hypogammaglobulinaemia, unspecified Frequent infections Bilateral leg weakness Other musculoskeletal symptoms referable to limbs Discoid lupus erythematosus Lupus erythematosus documented [facility]* Diagnosis Diarrhea, unspecified type- Primary Abdominal pressure Abdominal pain, unspecified site [facility]* Diagnosis Other iron deficiency anemia- Primary [facility]* Diagnosis Other systemic lupus erythematosus with other organ involvement (HCC) [facility]* Diagnosis Systemic lupus erythematosus with other organ involvement (HCC)- Primary [facility]* Diagnosis Systemic lupus erythematosus (CMS-HCC)- Primary Cold extremities Pain of lower extremity, unspecified laterality Rheumatoid arthritis, involving unspecified site, unspecified whether rheumatoid factor present ([facility]-HCC) Current smoker 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 documented in this encounter [facility]* Diagnosis Systemic lupus erythematosus (CMS-HCC)- Primary Cold extremities Pain of lower extremity, unspecified laterality Rheumatoid arthritis, involving unspecified site, unspecified whether rheumatoid factor present (CMS-HCC) Current smoker 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 Peripheral vascular disease, unspecified (CMS-HCC)- Primary Peripheral vascular disease, unspecified Cold extremities Systemic lupus erythematosus (CMS-HCC) documented in this encounter [facility]* Diagnosis Other systemic lupus erythematosus with other organ involvement (HCC)- Primary Vitamin D deficiency Unspecified vitamin D deficiency Elevated LFTs Other abnormal blood chemistry Anemia of chronic disease Anemia of other chronic disease Elevated sed rate Elevated sedimentation rate Elevated C-reactive protein (CRP) [facility]* Diagnosis Onset Date Resolution Status Admit Date Lumbosacral spondylosis acuteFebruary 2024 3:16pmOther chronic painacuteFebruary 2024 3:16pm SacroiliitisacuteFebruary 2024 3:16pm [facility] Work Phone: Evaluation note* Diagnosis Elevated sed rate- Primary Elevated sedimentation rate Megaloblastic anemia due to vitamin B12 deficiency Other vitamin B12 deficiency anemia Frequent infections Hypogammaglobulinemia (HCC) Hypogammaglobulinaemia, unspecified Bilateral leg weakness Other musculoskeletal symptoms referable to limbs Discoid lupus erythematosus Lupus erythematosus [facility] Diagnosis LPRD (laryngopharyngeal reflux disease) Other diseases of larynx Dry mouth Disturbance of salivary secretion Current smoker Tobacco use disorder Abnormal mouth sensation Other and unspecified diseases of the oral soft tissues [facility] Diagnosis Nipple discharge- Primary Other sign and symptom in breast Other systemic lupus erythematosus with other organ involvement (HCC) On prednisone therapy Long-term use of Plaquenil Encounter for long-term (current) use of other medications [facility]* Diagnosis Hidradenitis suppurativa- Primary Hidradenitis Other seborrheic dermatitis Lupus erythematosus tumidus (CMS/HCC) Rash and other nonspecific skin eruption Capillary angioma Nevus, non-neoplastic Neoplasm of uncertain behavior of skin [facility] Diagnosis Sinus tachycardia- Primary Other specified cardiac dysrhythmias Shortness of breath Paroxysmal supraventricular tachycardia (CMS-HCC) Paroxysmal supraventricular tachycardia Essential hypertension Unspecified essential hypertension Obstructive sleep apnea syndrome Obstructive sleep apnea (adult) (pediatric) Morbid obesity (Multi) Morbid obesity Current smoker documented in this encounter [facility] Work Phone: Evaluation note* Diagnosis Elevated sed rate- Primary Elevated sedimentation rate Megaloblastic anemia due to vitamin B12 deficiency Other vitamin B12 deficiency anemia Frequent infections Hypogammaglobulinemia (HCC) Hypogammaglobulinaemia, unspecified Bilateral leg weakness Other musculoskeletal symptoms referable to limbs Discoid lupus erythematosus Lupus erythematosus [facility] Diagnosis Systemic lupus erythematosus with other organ involvement (HCC)- Primary [facility]* Diagnosis Vitamin B12 deficiency- Primary Other B-complex deficiencies Other iron deficiency anemia Hypogammaglobulinemia (HCC) Hypogammaglobulinaemia, unspecified [facility]* Diagnosis Other systemic lupus erythematosus with other organ involvement (HCC) [facility]* Diagnosis Thyroid nodule (CMS/HCC)- Primary Nontoxic uninodular goiter LPRD (laryngopharyngeal reflux disease) Acute laryngitis, without mention of obstruction [facility] Diagnosis Hypogammaglobulinemia (HCC)- Primary Hypogammaglobulinaemia, unspecified Vitamin B12 deficiency Other B-complex deficiencies Other iron deficiency anemia Megaloblastic anemia due to vitamin B12 deficiency Other vitamin B12 deficiency anemia [facility]* Diagnosis Frequent infections- Primary Hypogammaglobulinemia (HCC) Hypogammaglobulinaemia, unspecified Bilateral leg weakness Other musculoskeletal symptoms referable to limbs Discoid lupus erythematosus Lupus erythematosus Elevated sed rate Elevated sedimentation rate Megaloblastic anemia due to vitamin B12 deficiency Other vitamin B12 deficiency anemia [facility]* Diagnosis Other systemic lupus erythematosus with other organ involvement (HCC)- Primary [facility]* Diagnosis Other systemic lupus erythematosus with other organ involvement (HCC) [facility]* Diagnosis Systemic lupus erythematosus with other organ involvement (HCC)- Primary [facility]* Diagnosis Fibromyalgia- Primary Mylagia and myositis, unspecified Family history of disease of aorta Family history of cancer Family history of unspecified malignant neoplasm documented [facility]* Diagnosis Frequent infections- Primary Hypogammaglobulinemia (HCC) [...] vitamin D deficiency documented [facility]* Diagnosis Other systemic lupus erythematosus with other organ involvement (HCC)- Primary [facility]* Diagnosis Other systemic [...] vitamin D deficiency [facility]* Diagnosis Other systemic [...] both feet Long-term use of high-risk 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 Encounter for long-term (current) use of steroids Bilateral hand pain Pain in limb Family history of Crohn's disease Family history of other digestive disorders 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 Bilateral wrist pain 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, forearm documented [facility]* Diagnosis Other systemic lupus erythematosus with other organ involvement (HCC)- Primary [facility]* Diagnosis Generalized articular hypermobility- Primary Other joint derangement, not elsewhere classified, multiple sites Chronic pain syndrome Discoid lupus erythematosus Lupus erythematosus Family history of pneumothorax in son Family history of other condition Family history of cancer Family history of unspecified malignant neoplasm Family history of mild aortic dilation in daughter Family history of other cardiovascular diseases [facility]* Diagnosis Elevated sed rate- Primary Elevated sedimentation rate Megaloblastic anemia due to vitamin B12 deficiency Other vitamin B12 deficiency anemia Frequent infections Hypogammaglobulinemia (HCC) Hypogammaglobulinaemia, unspecified Bilateral leg weakness Other musculoskeletal symptoms referable to limbs Discoid lupus erythematosus Lupus erythematosus documented [facility]* Diagnosis Other systemic lupus erythematosus with other organ involvement (HCC)- Primary documented [facility]* Diagnosis Hypogammaglobulinemia (HCC)- Primary Hypogammaglobulinaemia, unspecified documented [facility]* Diagnosis Hidradenitis suppurativa- Primary Hidradenitis Pain Generalized pain Acne vulgaris Other acne [facility]* Diagnosis Hypogammaglobulinemia (HCC)- Primary Hypogammaglobulinaemia, unspecified Vitamin B12 deficiency Other B-complex deficiencies Other iron deficiency anemia Malaise and fatigue Other malaise and fatigue Shortness of breath Other specified disorders of breast Pre-diabetes Other abnormal glucose Gastro-esophageal reflux disease without esophagitis Esophageal reflux [facility]* Diagnosis Elevated sed rate- Primary Elevated sedimentation rate Megaloblastic anemia due to vitamin B12 deficiency Other vitamin B12 deficiency anemia Frequent infections Hypogammaglobulinemia (HCC) Hypogammaglobulinaemia, unspecified Bilateral leg weakness Other musculoskeletal symptoms referable to limbs Discoid lupus erythematosus Lupus erythematosus documented [facility] this [facility]* Diagnosis Other systemic lupus erythematosus with other organ involvement (HCC)- Primary [facility]* Diagnosis Other systemic [...] for pulmonary tuberculosis documented [facility] this [facility]* Diagnosis Other systemic lupus erythematosus with other organ involvement (HCC)- Primary Elevated LFTs Other abnormal blood chemistry Anemia of chronic disease Anemia of other chronic disease Elevated C-reactive protein (CRP) Elevated sed rate Elevated sedimentation rate Vitamin D deficiency Unspecified vitamin D deficiency documented [facility]* Diagnosis Frequent infections- Primary Hypogammaglobulinemia (HCC) Hypogammaglobulinaemia, unspecified Bilateral leg weakness Other musculoskeletal symptoms referable to limbs Discoid lupus erythematosus Lupus erythematosus Elevated sed rate Elevated sedimentation rate Megaloblastic anemia due to vitamin B12 deficiency Other vitamin B12 deficiency anemia documented [facility]* Diagnosis Pilonidal cyst- Primary Hidradenitis suppurativa Hidradenitis documented in this encounter [facility] HealthcareEvaluation note* Diagnosis Pilonidal abscess- Primary Pilonidal cyst with abscess Pilonidal cyst documented in this encounter [facility] HealthcareEvaluation note* Diagnosis Nipple discharge in female- Primary Other sign and symptom in breast Type 2 diabetes mellitus with other specified complication, unspecified whether 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 use Obesity with serious comorbidity in pediatric patient, unspecified obesity class, unspecified obesity type IgG deficiency Other selective immunoglobulin deficiencies Recurrent infections Unspecified infectious and parasitic diseases Pilonidal abscess Pilonidal cyst with abscess Tobacco use disorder [facility] Narrative - Reported* Type Description Date Medical History hyperlipidemia Medical Historyinsulin resistanceMedical HistoryCMVSurgical Historycyst removal pilonidalSurgical HistoryD&CHospitalization Historypregnancy [facility] [employer] Other Hospital Discharge instructionsAmbulatory Orders* Referral to Gastroenterology Location: None [facility] Work Phone: Hospital Discharge instructions Additional Instructions Dressing changes to sacral region daily: Remove packing, irrigate with saline, repack with saline moistened 2 x 2 gauze and cover [facility] Work Phone: InstructionsNot on filedocumented in this encounter [facility] (narrative)* Diagnostic Procedure Only (Routine) - Pending ReviewSpecialtyDiagnoses / ProceduresReferred By ContactReferred To ContactXR IMAGING Diagnoses Steroid-induced osteoporosis Procedures DXA-FOREARM SKELETON DXA BONE DENSITY STUDY 1/>SITES APPENDICLR Lynne Perera MD [address] [facility] [place] [address] [place] [address] Referral [facility]StatusReMad[facility] DateExpiration DateVisits RequestedVisits [id number] Review Auto-Generated Referral [facility] for referral (narrative)* Consultation (Routine) - AuthorizedSpecialtyDiagnoses / ProceduresReferred By ContactReferred To ContactCardiology Diagnoses Irregular heart rate Essential hypertension Autonomic dysfunction Obstructive sleep apnea syndrome Primary hypertension Procedures Follow Up In Cardiology Michelle Jasmine, FIELD MARKETING COORDINATOR-CLINICAL RESEARCH SPEC [address] [facility] [address] [place] [address] Aurora Ptael MD [address] [facility] [address] [place] [address] Referral IDStatusReasonStart DateExpiration DateVisits RequestedVisits [id number]/17/20241/16/202511 * Cardiovascular (Routine) - Pending ReviewSpecialtyDiagnoses / Procedures Referred By ContactReferred To ContactCardiology Diagnoses Irregular heart rate Procedures 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 Michelle Jasmine APRN-CNP [address] [facility] [address] [place] [address] Referral IDStatusReasonStart DateExpiration DateVisits RequestedVisits [id number] Review * CV Imaging (Routine) - Pending ReviewSpecialtyDiagnoses / ProceduresReferred By ContactReferred To ContactCardiology Diagnoses Irregular heart rate Obstructive sleep apnea syndrome Procedures Transthoracic Echo (TTE) Complete MS ECHO TTHRC R-T 2D W/WOM-MODE COMPL SPEC&COLR D Michelle Jasmine APRN-CNP [address] [facility] [address] [place] [address] Referral IDStatusReasonStart DateExpiration DateVisits RequestedVisits [id number] Review Perform Procedure / * Cardiovascular (Routine) - AuthorizedSpecialtyDiagnoses / ProceduresReferred By ContactReferred To Contact Diagnoses Irregular heart rate Procedures ECG 12 Lead Michelle Jasmine APRN-CNP [address] [facility] [address] [place] [address] Referral IDStatusReasonStart DateExpiration DateVisits RequestedVisits [id number]/17/20241/16/202511 [facility] Work Phone: Reason for referral (narrative)* Consultation (Routine) - Pending ReviewSpecialtyDiagnoses / ProceduresReferred By Contact Referred To ContactPain Medicine Diagnoses Lumbosacral radiculopathy at L5 Degenerative disc disease, lumbar Procedures MS OFFICE/OUTPATIENT [facility] 60 MINUTES Kade Early MD [address] [facility] [address] [place] [address] Adolfo Kang MD [address] [phone] Referral IDStatusReasonStart DateExpiration DateVisits RequestedVisits [id number] Review Specialty Services Required / [facility] (narrative)No reason for referral information availableBet[facility]da North [facility] Work Phone: Reason for visit Narrative* [place] Prior Authorization (Routine) - AuthorizedSpecialtyDiagnoses / ProceduresReferred By Contact Referred To Contact Diagnoses Frequent infections Hypogammaglobulinemia (HCC) Bilateral leg weakness Discoid lupus erythematosus Procedures GAMMAGARD LIQUID INJECTION Vera Najera MD [address] [place] [address] Phone: tel: fax: Hematology/Oncology [address] [place] [address] [place] [address] Phone: tel: fax: Referral IDStatusReasonStart DateExpiration DateVisits RequestedVisits [id number]/11/20245/ [facility] Narrative* [place] Prior Authorization (Routine) - AuthorizedSpecialtyDiagnoses / ProceduresReferred By ContactReferred To Contact Diagnoses Other systemic lupus erythematosus with other organ involvement (HCC) Procedures BELIMUMAB INJECTION Lynne Ni MD [address] [place] [address] Phone: tel: fax: Lynne Ni MD [address] [place] [address] Phone: tel: fax: Referral IDStatusReasonStart DateExpiration DateVisits RequestedVisits [id number]/18/202510/18/202588 [facility] for visit Narrative* [place] Prior Authorization (Routine) - AuthorizedSpecialtyDiagnoses / ProceduresReferred By ContactReferred To Contact Diagnoses Other iron deficiency anemia Procedures IRON SUCROSE INJECTION PER 1 MG Vaibhav Carvalho APRN.CLINICAL RESEARCH SPEC [address] [place] [address] Phone: tel: fax: Hematology/Oncology [address] [place] [address] [address] [place] [id number] Phone: tel: fax: Referral IDStatusReasonStart DateExpiration DateVisits RequestedVisits [id number]/24/202512/[id number] [facility] for visit Narrative* [place] Prior Authorization (Routine) - AuthorizedSpecialtyDiagnoses / ProceduresReferred By ContactReferred To Contact Diagnoses Frequent infections Hypogammaglobulinemia (HCC) Bilateral leg weakness Discoid lupus erythematosus Procedures GAMMAGARD LIQUID INJECTION Vera Najera MD [address] [place] [address] Phone: tel: fax: Hematology/Oncology [address] [place] [address] [place] [address] Phone: tel: fax: Referral IDStatusReasonStart DateExpiration DateVisits RequestedVisits [id number] Patient Cleared - Admin/Ship Rigger Apprentice/Director advise to proceed or did not respond [facility] for visit Narrative* [place] Prior Authorization (Routine) - AuthorizedSpecialtyDiagnoses / ProceduresReferred By ContactReferred To Contact Diagnoses Frequent infections Hypogammaglobulinemia (HCC) Bilateral leg weakness Discoid lupus erythematosus Procedures GAMMAGARD LIQUID INJECTION Vera Najera MD [address] [place] [address] Phone: tel: fax: Hematology/Oncology [address] [place] [address] [place] [address] Phone: tel: fax: Referral IDStatusReasonStart DateExpiration DateVisits RequestedVisits [id number] Patient Cleared - Admin/Ship Rigger Apprentice/Director advise to proceed or did not respond [facility] for visit Narrative* [place] Prior Authorization (Routine) - AuthorizedSpecialtyDiagnoses / ProceduresReferred By ContactReferred To Contact Diagnoses Frequent infections Hypogammaglobulinemia (HCC) Bilateral leg weakness Discoid lupus erythematosus Procedures GAMMAGARD LIQUID INJECTION IMMUNE GLOBULIN INJECTION Vera Najera MD [address] [place] [address] [place] [address] Phone: tel: fax: Hematology/Oncology [address] [place] [address] [place] [address] Phone: tel: fax: Referral IDStatusReasonStstrafford DateExpiration DateVisits RequestedVisits [id number] Patient Cleared - Admin/Ship Rigger Apprentice/Director advise to proceed or did not respond [facility] Summary Purpose Family History No [...] [facility] MINUTES Vaibhav Carvalho, MAURILIO.[address] [place] [address] Referral IDStatusReasonart DateExpiration DateVisits RequestedVisits [id number] PCP Requested Referral /[id number] / ProceduresReferred By ContactReferred To Contact Diagnoses Paroxysmal supraventricular tachycardia PAC (premature atrial contraction) Procedures ECG 12 Lead Lois Holm MD [address] [place] [address] [address], [address] [address] Referral IDStatusReasonStart DateExpiration DateVisits RequestedVisits [id number]/[id number] / Procedures Referred By ContactReferred To ContactCardiology Diagnoses Shortness of breath Paroxysmal supraventricular tachycardia PAC (premature atrial contraction) Procedures Follow Up In Cardiology Lois Holm MD [address] [place] [address] [address], [address] [address] Lois Holm MD [address] [place] [address] [address], [address] [address] Referral IDStatusReasonStart DateExpiration DateVisits RequestedVisits [id number]/20/20242/[id number] / Procedures Referred By ContactReferred To Contact Diagnoses Obesity, Class III, BMI 40-49.9 (morbid obesity) (HCC) Pre-diabetes Christie Phan MD [address] [place] [address] Referral IDStatusReasonStart DateExpiration DateVisits RequestedVisits [id number] / ProceduresReferred By Contact Referred To Contact Diagnoses Wound healing, delayed Procedures CONSULT TO MEDICAL GENETICS - GENERAL OFFICE/OUTPATIENT [facility] 60-74 MINUTES MEDICAL GENETICS COUNSELING EACH 30 MINUTES Misty Nelson MD [facility] [place] [address] [facility] [place] [address] [place] [address] Referral IDStatusReasonStart DateExpiration DateVisits RequestedVisits [id number] PCP Requested Referral Auto-Generated Referral [id number] / ProceduresReferred By ContactReferred To ContactNeurology Diagnoses POTS (postural orthostatic tachycardia syndrome) Procedures CONSULT TO NEUROLOGY OFFICE/OUTPATIENT [facility] 60-74 MINUTES Christie Phan MD [address] [place] [address] Referral IDStatusReasonStart DateExpiration DateVisits RequestedVisits [id number] PCP Requested Referral /[id number] / ProceduresReferred By ContactReferred To ContactImmunology Diagnoses Raised level of immunoglobulins Procedures CONSULT TO IMMUNOLOGY OFFICE/OUTPATIENT [facility] 60-74 MINUTES Christie Phan MD [address] [place] [address] Referral IDStatusReasonStart DateExpiration DateVisits RequestedVisits [id number] PCP Requested Referral [id number] / ProceduresReferred By ContactReferred To ContactNEUROLOGICAL INSTITUTE Diagnoses Somnolence, daytime Snoring Procedures HOME SLEEP APNEA TEST (HSAT) SLEEP STD AIRFLOW HRT RATE&O2 SAT EFFORT Christie Pang MD [address] [place] [address] [facility] [place] [address] [place] [address] Referral IDStatusReasonStart DateExpiration DateVisits RequestedVisits [id number] Auto-Generated Referral [id number] / ProceduresReferred By ContactReferred To Contact Diagnoses Somnolence, daytime Chronic fatigue and malaise Obesity, unspecified classification, unspecified obesity type, unspecified whether serious comorbidity present Procedures CONSULT TO LIFESTYLE MEDICINE MD OFFICE/OUTPATIENT [facility] 60-74 MINUTES Vera Najera MD [address] [place] [address] [place] [address] Referral IDStatusKierstenMadison [facility] DateExpiration DateVisits RequestedVisits [id number] PCP Requested Referral [id number] / ProceduresReferred By ContactReferred To Contact Diagnoses Somnolence, daytime Snoring Procedures CONSULT TO SLEEP MEDICINE - ADULT OFFICE/OUTPATIENT [facility] 60-74 MINUTES Vera Najera MD [address] [place] [address] [place] [address] Referral IDStatusReasonStstrafford DateExpiration DateVisits RequestedVisits [id number] PCP Requested Referral Medications Administered Section Medication [...] 26, 2025 7: 30pm 8 wk f/u-constipation/dyspepsia/abd. rbob n February 28, 2025 1:29pm Pilonidal Cyst [...] section and content) DATE CREATED AUTHOR 09/20/2018 [facility] DATE CREATED AUTHOR AUTHOR'S ORGANIZ ATION 12/10/2018 [facility] DATE CREATED AUTHOR AUTHOR'S ORGANIZ ATION 01/13/2019 [facility] DATE CREATED AUTHOR AUTHOR'S ORGANIZ ATION 06/28/2021 [facility] DATE CREATED AUTHOR AUTHOR'S ORGANIZ ATION 10/01/2022 [facility] DATE CREATED AUTHOR AUTHOR'S ORGANIZ ATION 03/10/2024 [facility] DATE CREATED AUTHOR AUTHOR'S ORGANIZ ATION 07/22/2024 [facility] DATE CREATED AUTHOR AUTHOR'S ORGANIZ ATION 07/28/2024 [facility] DATE CREATED AUTHOR AUTHOR'S ORGANIZ ATION 03/02/2025 [facility] DATE CREATED AUTHOR AUTHOR'S ORGANIZ ATION 03/14/2025 [facility] DATE CREATED AUTHOR AUTHOR'S ORGANIZ ATION 03/18/2025 [facility] DATE CREATED AUTHOR AUTHOR'S ORGANIZ ATION 03/21/2025 [facility] Reason for Visit (unrecogniz ed section and content) ReasonCommentsInfection Follow UpSpecialtyDiagnoses / ProceduresReferred By ContactReferred To ContactInfectious Diseases Diagnoses Positive blood cultures Procedures CONSULT TO INFECTIOUS DISEASES OFFICE/OUTPATIENT [facility] 60 MINUTES Vaibhav Carvalho APRN.[address] [place] [address] Phone: tel: fax: Referral IDStatusReasonStart DateExpiration DateVisits RequestedVisits [id number] PCP Requested Referral [id number]ejwmcv / ProceduresReferred By ContactReferred To Contact [facility] ReasonCommentsPainongoing generalized pain.ReasonCommentsNewReasonCommentsOpened In ErrorReasonCommentsResultsReasonCommentsAbnormal labsNew patient consult ReasonCommentsNew PatientVirtual visitSpecialtyDiagnoses / ProceduresReferred By ContactReferred To Contact Diagnoses Somnolence, daytime Chronic fatigue and malaise Obesity, unspecified classification, unspecified obesity type, unspecified whether serious comorbidity present Procedures CONSULT TO LIFESTYLE MEDICINE MD OFFICE/OUTPATIENT [facility] 60-74 MINUTES Vera Najera MD [address] [place] [address] Referral IDStatusReasonStart DateExpiration DateVisits RequestedVisits [id number] PCP Requested Referral [id number] Total serum IgMAnemiaReasonComments ConsultSpecialtyDiagnoses / ProceduresReferred By ContactReferred To Contact Immunology Diagnoses Raised level of immunoglobulins Procedures CONSULT TO IMMUNOLOGY OFFICE/OUTPATIENT [facility] 60-74 MINUTES Christie Phan MD [address] [place] [address] Referral IDStatusReasonStart DateExpiration DateVisits RequestedVisits [id number] PCP Requested Referral [id number]kkrvvQajjrhrxNesjli RequestReason CommentsAppointmentCare Coordinator - OtherReasonCommentsFuture Appointment Scheduling questions/concernsReasonCommentsPAP Therapy Follow UpReasonComments PAP Rx FaxedDME Josh MarshalluskyReasonCommentsAnemia8 week follow upReason CommentsOrdersLab Orders Before AppointmentReasonCommentsSleep Apnea ReasonCommentsAnemiaReasonCommentsPainWeight ManagementReasonCommentsReason CommentsCare CoordinationappointmentReasonCommentsEstablished PatientReason CommentsAppointmentReasonCommentsFollow UpReasonOnset DateCommentsRefill Request 12/24/2022ReasonCommentsSLEReasonOnset DateCommentsSPP Inflammatory Conditions - Treatment Uofnowdh81/14/2023enlystaInsurance Zeucrsdmxjjmp43/14/2023A submission pendingReasonCommentsAppointmentOrdersMedication AuthorizationReason CommentsResultsEye ExamReasonCommentsAllied Health VisitBenlysta teachingReason CommentsCMNReasonCommentsEstablished Patient Follow-UpReasonCommentsWeight ManagementReasonCommentsNew Patient VisitHEART RATE/ BPSpecialtyDiagnoses / ProceduresReferred By ContactReferred To Contact Diagnoses Irregular heart rate Procedures ECG 12 Lead Michelle Jasmine, FIELD MARKETING COORDINATOR-CLINICAL RESEARCH SPEC [address] [facility] [address] [place] [address] Referral IDStatusReasonart DateExpiration DateVisits RequestedVisits [id number]/17/20241/329977MxwzjmRluwcxmaPqm Patient Visit Leg Swelling, [facility]Diagnoses / ProceduresReferred By ContactReferred To Contact Diagnoses Paroxysmal supraventricular tachycardia PAC (premature atrial contraction) Procedures ECG 12 Lead Lois Holm MD [address] [facility] [address] [place] [address] Referral IDStatusReasonStart DateExpiration DateVisits RequestedVisits [id number]/20/20242/734830WuauvmBblts DateCommentsSPP Inflammatory Conditions - Medication Nszgsf0907/13/2023enlystaReasonOnset Date CommentsSPP Inflammatory Conditions - Medication Brtnle8208/12/2023enlystaReason Onset DateCommentsSPP Inflammatory Conditions - Medication Rvbfvz9909/13/2023 BenlystaReasonCommentsSLEReasonOnset DateCommentsSPP Inflammatory Conditions - Medication Wpvlqg6310/12/2023enlystaReasonOnset DateCommentsRefill Request 4ReasonOnset DateCommentsSPP Inflammatory Conditions - Medication Iuekhr9711/15/2023enlysta - NCA 09/2024ReasonOnset DateCommentsSPP Inflammatory Conditions - Medication Mucyye7912/13/2023enlysta - NCA 09/2024ReasonOnset Date CommentsSPP Inflammatory Conditions - Medication Zaebcw2301/18/2024enlystaReason Onset DateCommentsSPP Inflammatory Conditions - Medication Mhyaob3702/14/2024 Benlysta - NCA 09/2024ReasonOnset DateCommentsSPP Inflammatory Conditions - Follow-up02/14/2024enlystaInsurance Ojddznxilvzgz70/23/2024A Renewal Submitted ReasonCommentsOrdersPAP RX.ReasonCommentsCare Coordinator - OtherEds scheduling ReasonCommentsMed Change RequestReasonCommentscmnReasonOnset DateCommentsSPP Inflammatory Conditions - Medication Xxzmzg9103/13/2024enlysta - NCA 09/2024Reason CommentsBreast ProblemReasonCommentsVaginal BleedingPt present today for bleeding when she wipes.ReasonOnset DateCommentsSPP Inflammatory Conditions - Medication Bmgvpq9204/11/2024enlystaReasonCommentsEar ProblemPossible thrush, ear painReasonCommentsMed RefillReasonOnset DateCommentsSPP Inflammatory Conditions - Medication Iftcys1905/12/2024enlystaSpecialtyDiagnoses / ProceduresReferred By ContactReferred To Contact Diagnoses Frequent infections Hypogammaglobulinemia (HCC) Bilateral leg weakness Discoid lupus erythematosus Procedures GAMMAGARD LIQUID INJECTION Vera Najera MD [address] [place] [address] [place] [address] [facility] [place] [address] [place] [address] Referral IDStatusReasonStart DateExpiration DateVisits RequestedVisits [id number]/11/20245/11/530845EiskvcMugietwfRuej Women Visit ReasonOnset DateCommentsSPP Inflammatory Conditions - Medication Refill 06/06/2024enlystaReasonCommentsLab OrdersReasonCommentsArt TherapyReason CommentsAnemiaReasonCommentsBreath Hydrogen TestSIBO Breath TestReasonOnset Date CommentsSPP Inflammatory Conditions - Medication Bfverj8806/29/2024enlystaReason Commentsposs raynaudsSpecialtyDiagnoses / ProceduresReferred By ContactReferred To ContactVascular Surgery Diagnoses Cold extremities Pain of lower extremity, unspecified laterality Gay De La Torre, FIELD MARKETING COORDINATOR-CLINICAL RESEARCH SPEC [address] [place] [address] Phone: tel:[phone] fax: Hayden Arciniega MD [address] [place] [address] Phone: tel:[phone] fax: Referral IDStatusReasonStart DateExpiration DateVisits RequestedVisits [id number] Review Specialty Services Required [id number]/Lip ProblemSince FebruaryRe DateCommentsSPP Inflammatory Conditions - Medication Tqttyw1407/25/2024enlysta ReasonCommentsFollow-upSkin CheckReasonCommentsAnnual ExamSpecialtyDiagnoses / ProceduresReferred By ContactReferred To ContactCardiology Diagnoses Shortness of breath Paroxysmal supraventricular tachycardia (CMS-HCC) PAC (premature atrial contraction) Procedures Follow Up In Cardiology Lois Holm MD [address] [place] [address] [address] [address] Phone: tel: fax: Lois Holm MD [address] [place] [address] [address], [address] [address] Phone: tel: fax: Referral IDStatusReasonStart DateExpiration DateVisits RequestedVisits [id number]/20/20242/[id number] Change Request ReasonCommentsPatient QuestionReasonOnset DateCommentsSPP Inflammatory Conditions - Medication Qndgwc3908/17/2024enlystaReasonOnset DateCommentsRefill Aaoxlxb4609/01/2024ReasonCommentsThyroid NoduleFollow up ultrasound [facility] 08/24/24 ReasonCommentsMegaloblastic anemia due to vitamin B12 deficiencyTreatment visit ReasonOnset RgoeSqzalxcpNlfrzbe59/17/2025ReasonCommentsMedication PreauthorizationAppointmentReasonCommentsFuture AppointmentReasonOnset Date CommentsSPP Inflammatory Conditions - Medication Dhakkt3109/20/2024enlystaReason CommentsJoint PainReasonCommentsPatient UpdateAppointmentReasonCommentsSLE OsteoarthritisReasonCommentsConsulthypermobilitySpecialtyDiagnoses / Procedures Referred By ContactReferred To ContactGenetics / MEDICAL GENETICS Diagnoses hEDS with concerns and wants CTD evaluation Procedures EST PATIENT Self Ny Lance MD [address] [place] [address] Phone: tel: fax: Referral IDStatusReasonStart DateExpiration DateVisits RequestedVisits [id number] Review/199850SxnepbDauzsznlOyylpz-ik ReasonCommentsHypogammagloblinemiaMegablastic anemiaOTVReasonOnset DateComments Bbpqaxw1811/30/2024ReasonCommentsFollow-upSuspicious Skin LesionReasonComments ConsultPilonidal cyst- Pt had a pilonidal cyst and sinus removal about 15 yrs ago- [facility] did procedure. Everything went well and was doing fine until about 2-3 weeks ago.SpecialtyDiagnoses / ProceduresReferred By ContactReferred To Contact General Surgery Diagnoses Pilonidal cyst Procedures [place] OFFICE/OUTPATIENT [facility] MDM 60 MINUTES Bernabe English MD [address] [place] [address] Phone: tel: fax: Terence Blum MD [address] [facility] [address] [place] [address] Phone: tel: fax: Referral IDStatusReasonStart DateExpiration DateVisits RequestedVisits [id number] Specialty Services Required /[id number] PatientPilonidal cyst with abscessReferral from Dr. Gay De La Torre- [facility]. Patient denies fever, nausea, vomiting [...] alcohol or drug abuse patient.[facility] CenterIn the event this information is protected by the Federal Confidentiality of Alcohol and Drug Abuse Patient Records regulations: The Federal rules restrict any use of the information to criminally investigate or prosecute any alcohol or drug abuse patient.[facility] CenterIn the event this information is protected by the Federal Confidentiality of Alcohol and Drug Abuse Patient Records regulations: The Federal rules restrict any use of the information to criminally investigate or prosecute any alcohol or drug abuse patient.[facility] CenterIn the event this information is protected by the Federal Confidentiality of Alcohol and Drug Abuse Patient Records regulations: The Federal rules restrict any use of the information to criminally investigate or prosecute any alcohol or drug abuse patient.[facility] CenterIn the event this information is protected by the Federal Confidentiality of Alcohol and Drug Abuse Patient Records regulations: The Federal rules restrict any use of the information to criminally investigate or prosecute any alcohol or drug abuse patient.[facility] CenterIn the event this information is protected by the Federal Confidentiality of Alcohol and Drug Abuse Patient Records regulations: The Federal rules restrict any use of the information to criminally investigate or prosecute any alcohol or drug abuse patient.[facility] CenterIn the event this information is protected by the Federal Confidentiality of Alcohol and Drug Abuse Patient Records regulations: The Federal rules restrict any use of the information to criminally investigate or prosecute any alcohol or drug abuse patient.[facility] CenterIn the event this information is protected by the Federal Confidentiality of Alcohol and Drug Abuse Patient Records regulations: The Federal rules restrict any use of the information to criminally investigate or prosecute any alcohol or drug abuse patient.[facility] CenterIn the event this information is protected by the Federal Confidentiality of Alcohol and Drug Abuse Patient Records regulations: The Federal rules restrict any use of the information to criminally investigate or prosecute any alcohol or drug abuse patient.[facility] CenterIn the event this information is protected by the Federal Confidentiality of Alcohol and Drug Abuse Patient Records regulations: The Federal rules restrict any use of the information to criminally investigate or prosecute any alcohol or drug abuse patient.[facility] CenterIn the event this information is protected by the Federal Confidentiality of Alcohol and Drug Abuse Patient Records regulations: The Federal rules restrict any use of the information to criminally investigate or prosecute any alcohol or drug abuse patient.[facility] CenterIn the event this information is protected by the Federal Confidentiality of Alcohol and Drug Abuse Patient Records regulations: The Federal rules restrict any use of the information to criminally investigate or prosecute any alcohol or drug abuse patient.[facility] CenterIn the event this information is protected by the Federal Confidentiality of Alcohol and Drug Abuse Patient Records regulations: The Federal rules restrict any use of the information to criminally investigate or prosecute any alcohol or drug abuse patient.[facility] CenterIn the event this information is protected by the Federal Confidentiality of Alcohol and Drug Abuse Patient Records regulations: The Federal rules restrict any use of the information to criminally investigate or prosecute any alcohol or drug abuse patient.[facility] the event this information is protected by the Federal Confidentiality of Alcohol and Drug Abuse Patient Records regulations: The Federal rules restrict any use of the information to criminally investigate or prosecute any alcohol or drug abuse patient.[facility] CenterIn the event this information is protected by the Federal Confidentiality of Alcohol and Drug Abuse Patient Records regulations: The Federal rules restrict any use of the information to criminally investigate or prosecute any alcohol or drug abuse patient.[facility] CenterIn the event this information [...] alcohol or drug abuse patient.[facility] CenterIn the event this information is protected by the Federal Confidentiality of Alcohol and Drug Abuse Patient Records regulations: The Federal rules restrict any use of the information to criminally investigate or prosecute any alcohol or drug abuse patient.[facility] CenterIn the event this information is protected by the Federal Confidentiality of Alcohol and Drug Abuse Patient Records regulations: The Federal rules restrict any use of the information to criminally investigate or prosecute any alcohol or drug abuse patient.[facility] CenterIn the event this information is protected by the Federal Confidentiality of Alcohol and Drug Abuse Patient Records regulations: The Federal rules restrict any use of the information to criminally investigate or prosecute any alcohol or drug abuse patient.[facility] CenterIn the event this information is protected by the Federal Confidentiality of Alcohol and Drug Abuse Patient Records regulations: The Federal rules restrict any use of the information to criminally investigate or prosecute any alcohol or drug abuse patient.[facility] CenterIn the event this information is protected by the Federal Confidentiality of Alcohol and Drug Abuse Patient Records regulations: The Federal rules restrict any use of the information to criminally investigate or prosecute any alcohol or drug abuse patient.[facility] CenterIn the event this information is protected by the Federal Confidentiality of Alcohol and Drug Abuse Patient Records regulations: The Federal rules restrict any use of the information to criminally investigate or prosecute any alcohol or drug abuse patient.[facility] CenterIn the event this information is protected by the Federal Confidentiality of Alcohol and Drug Abuse Patient Records regulations: The Federal rules restrict any use of the information to criminally investigate or prosecute any alcohol or drug abuse patient.[facility] CenterIn the event this information is protected by the Federal Confidentiality of Alcohol and Drug Abuse Patient Records regulations: The Federal rules restrict any use of the information to criminally investigate or prosecute any alcohol or drug abuse patient.[facility] CenterIn the event this information is protected by the Federal Confidentiality of Alcohol and Drug Abuse Patient Records regulations: The Federal rules restrict any use of the information to criminally investigate or prosecute any alcohol or drug abuse patient.[facility] CenterIn the event this information is protected by the Federal Confidentiality of Alcohol and Drug Abuse Patient Records regulations: The Federal rules restrict any use of the information to criminally investigate or prosecute any alcohol or drug abuse patient.[facility] CenterIn the event this information is protected by the Federal Confidentiality of Alcohol and Drug Abuse Patient Records regulations: The Federal rules restrict any use of the information to criminally investigate or prosecute any alcohol or drug abuse patient.[facility] CenterIn the event this information is protected by the Federal Confidentiality of Alcohol and Drug Abuse Patient Records regulations: The Federal rules restrict any use of the information to criminally investigate or prosecute any alcohol or drug abuse patient.[facility] CenterIn the event this information is protected by the Federal Confidentiality of Alcohol and Drug Abuse Patient Records regulations: The Federal rules restrict any use of the information to criminally investigate or prosecute any alcohol or drug abuse patient.[facility] CenterIn the event this information is protected by the Federal Confidentiality of Alcohol and Drug Abuse Patient Records regulations: The Federal rules restrict any use of the information to criminally investigate or prosecute any alcohol or drug abuse patient.[facility] CenterIn the event this information is protected by the Federal Confidentiality of Alcohol and Drug Abuse Patient Records regulations: The Federal rules restrict any use of the information to criminally investigate or prosecute any alcohol or drug abuse patient.[facility] CenterIn the event this information is protected by the Federal Confidentiality of Alcohol and Drug Abuse Patient Records regulations: The Federal rules restrict any use of the information to criminally investigate or prosecute any alcohol or drug abuse patient.[facility] CenterIn the event this information is protected by the Federal Confidentiality of Alcohol and Drug Abuse Patient Records regulations: The Federal rules restrict any use of the information to criminally investigate or prosecute any alcohol or drug abuse patient.[facility] CenterIn the event this information is protected by the Federal Confidentiality of Alcohol and Drug Abuse Patient Records regulations: The Federal rules restrict any use of the information to criminally investigate or prosecute any alcohol or drug abuse patient.[facility] CenterIn the event this information is protected by the Federal Confidentiality of Alcohol and Drug Abuse Patient Records regulations: The Federal rules restrict any use of the information to criminally investigate or prosecute any alcohol or drug abuse patient.[facility] CenterIn the event this information is protected by the Federal Confidentiality of Alcohol and Drug Abuse Patient Records regulations: The Federal rules restrict any use of the information to criminally investigate or prosecute any alcohol or drug abuse patient.[facility] CenterIn the event this information is protected by the Federal Confidentiality of Alcohol and Drug Abuse Patient Records regulations: The Federal rules restrict any use of the information to criminally investigate or prosecute any alcohol or drug abuse patient.[facility] the event this information is protected by the Federal Confidentiality of Alcohol and Drug Abuse Patient Records regulations: The Federal rules restrict any use of the information to criminally investigate or prosecute any alcohol or drug abuse patient.[facility] CenterIn the event this information is protected by the Federal Confidentiality of Alcohol and Drug Abuse Patient Records regulations: The Federal rules restrict any use of the information to criminally investigate or prosecute any alcohol or drug abuse patient.[facility] CenterIn the event this information is protected by the Federal Confidentiality of Alcohol and Drug Abuse Patient Records regulations: The Federal rules restrict any use of the information to criminally investigate or prosecute any alcohol or drug abuse patient.[facility] CenterIn the event this information is protected by the Federal Confidentiality of Alcohol and Drug Abuse Patient Records regulations: The Federal rules restrict any use of the information to criminally investigate or prosecute any alcohol or drug abuse patient.[facility] CenterIn the event this information is protected by the Federal Confidentiality of Alcohol and Drug Abuse Patient Records regulations: The Federal rules restrict any use of the information to criminally investigate or prosecute any alcohol or drug abuse patient.[facility] CenterIn the event this information is protected by the Federal Confidentiality of Alcohol and Drug Abuse Patient Records regulations: The Federal rules restrict any use of the information to criminally investigate or prosecute any alcohol or drug abuse patient.[facility] CenterIn the event this information is protected by the Federal Confidentiality of Alcohol and Drug Abuse Patient Records regulations: The Federal rules restrict any use of the information to criminally investigate or prosecute any alcohol or drug abuse patient.[facility] CenterIn the event this information is protected by the Federal Confidentiality of Alcohol and Drug Abuse Patient Records regulations: The Federal rules restrict any use of the information to criminally investigate or prosecute any alcohol or drug abuse patient.[facility] CenterIn the event this information is protected by the Federal Confidentiality of Alcohol and Drug Abuse Patient Records regulations: The Federal rules restrict any use of the information to criminally investigate or prosecute any alcohol or drug abuse patient.[facility] CenterIn the event this information is protected by the Federal Confidentiality of Alcohol and Drug Abuse Patient Records regulations: The Federal rules restrict any use of the information to criminally investigate or prosecute any alcohol or drug abuse patient.[facility] CenterIn the event this information is protected by the Federal Confidentiality of Alcohol and Drug Abuse Patient Records regulations: The Federal rules restrict any use of the information to criminally investigate or prosecute any alcohol or drug abuse patient.[facility] CenterIn the event this information is protected by the Federal Confidentiality of Alcohol and Drug Abuse Patient Records regulations: The Federal rules restrict any use of the information to criminally investigate or prosecute any alcohol or drug abuse patient.[facility] CenterIn the event this information is protected by the Federal Confidentiality of Alcohol and Drug Abuse Patient Records regulations: The Federal rules restrict any use of the information to criminally investigate or prosecute any alcohol or drug abuse patient.[facility] CenterIn the event this information is protected by the Federal Confidentiality of Alcohol and Drug Abuse Patient Records regulations: The Federal rules restrict any use of the information to criminally investigate or prosecute any alcohol or drug abuse patient.[facility] CenterIn the event this information is protected by the Federal Confidentiality of Alcohol and Drug Abuse Patient Records regulations: The Federal rules restrict any use of the information to criminally investigate or prosecute any alcohol or drug abuse patient.[facility] CenterIn the event this information is protected by the Federal Confidentiality of Alcohol and Drug Abuse Patient Records regulations: The Federal rules restrict any use of the information to criminally investigate or prosecute any alcohol or drug abuse patient.[facility] CenterIn the event this information is protected by the Federal Confidentiality of Alcohol and Drug Abuse Patient Records regulations: The Federal rules restrict any use of the information to criminally investigate or prosecute any alcohol or drug abuse patient.[facility] CenterIn the event this information is protected by the Federal Confidentiality of Alcohol and Drug Abuse Patient Records regulations: The Federal rules restrict any use of the information to criminally investigate or prosecute any alcohol or drug abuse patient.[facility] CenterIn the event this information is protected by the Federal Confidentiality of Alcohol and Drug Abuse Patient Records regulations: The Federal rules restrict any use of the information to criminally investigate or prosecute any alcohol or drug abuse patient.[facility] CenterIn the event this information is protected by the Federal Confidentiality of Alcohol and Drug Abuse Patient Records regulations: The Federal rules restrict any use of the information to criminally investigate or prosecute any alcohol or drug abuse patient.[facility] CenterIn the event this information is protected by the Federal Confidentiality of Alcohol and Drug Abuse Patient Records regulations: The Federal rules restrict any use of the information to criminally investigate or prosecute any alcohol or drug abuse patient.[facility] CenterIn the event this information is protected by the Federal Confidentiality of Alcohol and Drug Abuse Patient Records regulations: The Federal rules restrict any use of the information to criminally investigate or prosecute any alcohol or drug abuse patient.[facility] CenterIn the event this information is protected by the Federal Confidentiality of Alcohol and Drug Abuse Patient Records regulations: The Federal rules restrict any use of the information to criminally investigate or prosecute any alcohol or drug abuse patient.[facility] CenterIn the event this information is protected by the Federal Confidentiality of Alcohol and Drug Abuse Patient Records regulations: The Federal rules restrict any use of the information to criminally investigate or prosecute any alcohol or drug abuse patient.[facility] CenterIn the event this information is protected by the Federal Confidentiality of Alcohol and Drug Abuse Patient Records regulations: The Federal rules restrict any use of the information to criminally investigate or prosecute any alcohol or drug abuse patient.[facility] the event this information is protected by the Federal Confidentiality of Alcohol and Drug Abuse Patient Records regulations: The Federal rules restrict any use of the information to criminally investigate or prosecute any alcohol or drug abuse patient.[facility] CenterIn the event this information is protected by the Federal Confidentiality of Alcohol and Drug Abuse Patient Records regulations: The Federal rules restrict any use of the information to criminally investigate or prosecute any alcohol or drug abuse patient.[facility] CenterIn the event this information [...] alcohol or drug abuse patient.[facility] CenterIn the event this information is protected by the Federal Confidentiality of Alcohol and Drug Abuse Patient Records regulations: The Federal rules restrict any use of the information to criminally investigate or prosecute any alcohol or drug abuse patient.[facility] CenterIn the event this information is protected by the Federal Confidentiality of Alcohol and Drug Abuse Patient Records regulations: The Federal rules restrict any use of the information to criminally investigate or prosecute any alcohol or drug abuse patient.[facility] CenterIn the event this information is protected by the Federal Confidentiality of Alcohol and Drug Abuse Patient Records regulations: The Federal rules restrict any use of the information to criminally investigate or prosecute any alcohol or drug abuse patient.[facility] CenterIn the event this information is protected by the Federal Confidentiality of Alcohol and Drug Abuse Patient Records regulations: The Federal rules restrict any use of the information to criminally investigate or prosecute any alcohol or drug abuse patient.[facility]In the event this information is protected by the Federal Confidentiality of Alcohol and Drug Abuse Patient Records regulations: The Federal rules restrict any use of the information to criminally investigate or prosecute any alcohol or drug abuse patient.[facility]In the event this information is protected by the Federal Confidentiality of Alcohol and Drug Abuse Patient Records regulations: The Federal rules restrict any use of the information to criminally investigate or prosecute any alcohol or drug abuse patient.[facility]In the event this information is protected by the Federal Confidentiality of Alcohol and Drug Abuse Patient Records regulations: The Federal rules restrict any use of the information to criminally investigate or prosecute any alcohol or drug abuse patient.[facility]In the event this information is protected by the Federal Confidentiality of Alcohol and Drug Abuse Patient Records regulations: The Federal rules restrict any use of the information to criminally investigate or prosecute any alcohol or drug abuse patient.[facility]In the event this information is protected by the Federal Confidentiality of Alcohol and Drug Abuse Patient Records regulations: The Federal rules restrict any use of the information to criminally investigate or prosecute any alcohol or drug abuse patient.[facility]In the event this information is protected by the Federal Confidentiality of Alcohol and Drug Abuse Patient Records regulations: The Federal rules restrict any use of the information to criminally investigate or prosecute any alcohol or drug abuse patient.[facility]In the event this information is protected by the Federal Confidentiality of Alcohol and Drug Abuse Patient Records regulations: The Federal rules restrict any use of the information to criminally investigate or prosecute any alcohol or drug abuse patient.[facility]In the event this information is protected by the Federal Confidentiality of Alcohol and Drug Abuse Patient Records regulations: The Federal rules restrict any use of the information to criminally investigate or prosecute any alcohol or drug abuse patient.[facility]In the event this information is protected by the Federal Confidentiality of Alcohol and Drug Abuse Patient Records regulations: The Federal rules restrict any use of the information to criminally investigate or prosecute any alcohol or drug abuse patient.[facility]In the event this information is protected by the Federal Confidentiality of Alcohol and Drug Abuse Patient Records regulations: The Federal rules restrict any use of the information to criminally investigate or prosecute any alcohol or drug abuse patient.[facility]In the event this information is protected by the Federal Confidentiality of Alcohol and Drug Abuse Patient Records regulations: The Federal rules restrict any use of the information to criminally investigate or prosecute any alcohol or drug abuse patient.[facility]In the event this information is protected by the Federal Confidentiality of Alcohol and Drug Abuse Patient Records regulations: The Federal rules restrict any use of the information to criminally investigate or prosecute any alcohol or drug abuse patient.[facility]In the event this information is protected by the Federal Confidentiality of Alcohol and Drug Abuse Patient Records regulations: The Federal rules restrict any use of the information to criminally investigate or prosecute any alcohol or drug abuse patient.[facility]In the event this information is protected by the Federal Confidentiality of Alcohol and Drug Abuse Patient Records regulations: The Federal rules restrict any use of the information to criminally investigate or prosecute any alcohol or drug abuse patient.[facility]In the event this information is protected by the Federal Confidentiality of Alcohol and Drug Abuse Patient Records regulations: The Federal rules restrict any use of the information to criminally investigate or prosecute any alcohol or drug abuse patient.[facility]In the event this information is protected by the Federal Confidentiality of Alcohol and Drug Abuse Patient Records regulations: The Federal rules restrict any use of the information to criminally investigate or prosecute any alcohol or drug abuse patient.[facility]In the event this information is protected by the Federal Confidentiality of Alcohol and Drug Abuse Patient Records regulations: The Federal rules restrict any use of the information to criminally investigate or prosecute any alcohol or drug abuse patient.[facility]In the event this information is protected by the Federal Confidentiality of Alcohol and Drug Abuse Patient Records regulations: The Federal rules restrict any use of the information to criminally investigate or prosecute any alcohol or drug abuse patient.[facility]In the event this information is protected by the Federal Confidentiality of Alcohol and Drug Abuse Patient Records regulations: The Federal rules restrict any use of the information to criminally investigate or prosecute any alcohol or drug abuse patient.[facility]In the event this information is protected by the Federal Confidentiality of Alcohol and Drug Abuse Patient Records regulations: The Federal rules restrict any use of the information to criminally investigate or prosecute any alcohol or drug abuse patient.[facility]In the event this information is protected by the Federal Confidentiality of Alcohol and Drug Abuse Patient Records regulations: The Federal rules restrict any use of the information to criminally investigate or prosecute any alcohol or drug abuse patient.[facility]In the event this information is protected by the Federal Confidentiality of Alcohol and Drug Abuse Patient Records regulations: The Federal rules restrict any use of the information to criminally investigate or prosecute any alcohol or drug abuse patient.[facility]In the event this information is protected by the Federal Confidentiality of Alcohol and Drug Abuse Patient Records regulations: The Federal rules restrict any use of the information to criminally investigate or prosecute any alcohol or drug abuse patient.[facility]In the event this information is protected by the Federal Confidentiality of Alcohol and Drug Abuse Patient Records regulations: The Federal rules restrict any use of the information to criminally investigate or prosecute any alcohol or drug abuse patient.[facility]In the event this information is protected by the Federal Confidentiality of Alcohol and Drug Abuse Patient Records regulations: The Federal rules restrict any use of the information to criminally investigate or prosecute any alcohol or drug abuse patient.[facility]In the event this information is protected by the Federal Confidentiality of Alcohol and Drug Abuse Patient Records regulations: The Federal rules restrict any use of the information to criminally investigate or prosecute any alcohol or drug abuse patient.[facility]In the event this information is protected by the Federal Confidentiality of Alcohol and Drug Abuse Patient Records regulations: The Federal rules restrict any use of the information to criminally investigate or prosecute any alcohol or drug abuse patient.[facility]In the event this information is protected by the Federal Confidentiality of Alcohol and Drug Abuse Patient Records regulations: The Federal rules restrict any use of the information to criminally investigate or prosecute any alcohol or drug abuse patient.[facility]In the event this information is protected by the Federal Confidentiality of Alcohol and Drug Abuse Patient Records regulations: The Federal rules restrict any use of the information to criminally investigate or prosecute any alcohol or drug abuse patient.[facility]In the event this information is protected by the Federal Confidentiality of Alcohol and Drug Abuse Patient Records regulations: The Federal rules restrict any use of the information to criminally investigate or prosecute any alcohol or drug abuse patient.[facility]In the event this information is protected by the Federal Confidentiality of Alcohol and Drug Abuse Patient Records regulations: The Federal rules restrict any use of the information to criminally investigate or prosecute any alcohol or drug abuse patient.[facility]In the event this information is protected by the Federal Confidentiality of Alcohol and Drug Abuse Patient Records regulations: The Federal rules restrict any use of the information to criminally investigate or prosecute any alcohol or drug abuse patient.[facility]In the event this information is protected by the Federal Confidentiality of Alcohol and Drug Abuse Patient Records regulations: The Federal rules restrict any use of the information to criminally investigate or prosecute any alcohol or drug abuse patient.[facility]In the event this information is protected by the Federal Confidentiality of Alcohol and Drug Abuse Patient Records regulations: The Federal rules restrict any use of the information to criminally investigate or prosecute any alcohol or drug abuse patient.[facility]In the event this information is protected by the Federal Confidentiality of Alcohol and Drug Abuse Patient Records regulations: The Federal rules restrict any use of the information to criminally investigate or prosecute any alcohol or drug abuse patient.[facility]In the event this information is protected by the Federal Confidentiality of Alcohol and Drug Abuse Patient Records regulations: The Federal rules restrict any use of the information to criminally investigate or prosecute any alcohol or drug abuse patient.[facility]In the event this information is protected by the Federal Confidentiality of Alcohol and Drug Abuse Patient Records regulations: The Federal rules restrict any use of the information to criminally investigate or prosecute any alcohol or drug abuse patient.[facility]In the event this information is protected by the Federal Confidentiality of Alcohol and Drug Abuse Patient Records regulations: The Federal rules restrict any use of the information to criminally investigate or prosecute any alcohol or drug abuse patient.[facility]In the event this information is protected by the Federal Confidentiality of Alcohol and Drug Abuse Patient Records regulations: The Federal rules restrict any use of the information to criminally investigate or prosecute any alcohol or drug abuse patient.[facility]In the event this information is protected by the Federal Confidentiality of Alcohol and Drug Abuse Patient Records regulations: The Federal rules restrict any use of the information to criminally investigate or prosecute any alcohol or drug abuse patient.[facility]In the event this information is protected by the Federal Confidentiality of Alcohol and Drug Abuse Patient Records regulations: The Federal rules restrict any use of the information to criminally investigate or prosecute any alcohol or drug abuse patient.[facility]In the event this information is protected by the Federal Confidentiality of Alcohol and Drug Abuse Patient Records regulations: The Federal rules restrict any use of the information to criminally investigate or prosecute any alcohol or drug abuse patient.[facility] the event this information is protected by the Federal Confidentiality of Alcohol and Drug Abuse Patient Records regulations: The Federal rules restrict any use of the information to criminally investigate or prosecute any alcohol or drug abuse patient.[facility]In the event this information is protected by the Federal Confidentiality of Alcohol and Drug Abuse Patient Records regulations: The Federal rules restrict any use of the information to criminally investigate or prosecute any alcohol or drug abuse patient.[facility] CenterIn the event this information [...] alcohol or drug abuse patient.[facility] CenterIn the event this information is protected by the Federal Confidentiality of Alcohol and Drug Abuse Patient Records regulations: The Federal rules restrict any use of the information to criminally investigate or prosecute any alcohol or drug abuse patient.[facility]In the event this information is protected by the Federal Confidentiality of Alcohol and Drug Abuse Patient Records regulations: The Federal rules restrict any use of the information to criminally investigate or prosecute any alcohol or drug abuse patient.[facility]In the event this information is protected by the Federal Confidentiality of Alcohol and Drug Abuse Patient Records regulations: The Federal rules restrict any use of the information to criminally investigate or prosecute any alcohol or drug abuse patient.[facility]In the event this information is protected by the Federal Confidentiality of Alcohol and Drug Abuse Patient Records regulations: The Federal rules restrict any use of the information to criminally investigate or prosecute any alcohol or drug abuse patient.[facility]In the event this information is protected by the Federal Confidentiality of Alcohol and Drug Abuse Patient Records regulations: The Federal rules restrict any use of the information to criminally investigate or prosecute any alcohol or drug abuse patient.[facility]In the event this information is protected by the Federal Confidentiality of Alcohol and Drug Abuse Patient Records regulations: The Federal rules restrict any use of the information to criminally investigate or prosecute any alcohol or drug abuse patient.[facility]In the event this information is protected by the Federal Confidentiality of Alcohol and Drug Abuse Patient Records regulations: The Federal rules restrict any use of the information to criminally investigate or prosecute any alcohol or drug abuse patient.[facility] CenterIn the event this information is protected by the Federal Confidentiality of Alcohol and Drug Abuse Patient Records regulations: The Federal rules restrict any use of the information to criminally investigate or prosecute any alcohol or drug abuse patient.[facility] CenterIn the event this information is protected by the Federal Confidentiality of Alcohol and Drug Abuse Patient Records regulations: The Federal rules restrict any use of the information to criminally investigate or prosecute any alcohol or drug abuse patient.[facility] CenterIn the event this information is protected by the Federal Confidentiality of Alcohol and Drug Abuse Patient Records regulations: The Federal rules restrict any use of the information to criminally investigate or prosecute any alcohol or drug abuse patient.[facility] CenterIn the event this information is protected by the Federal Confidentiality of Alcohol and Drug Abuse Patient Records regulations: The Federal rules restrict any use of the information to criminally investigate or prosecute any alcohol or drug abuse patient.[facility] CenterIn the event this information is protected by the Federal Confidentiality of Alcohol and Drug Abuse Patient Records regulations: The Federal rules restrict any use of the information to criminally investigate or prosecute any alcohol or drug abuse patient.[facility] CenterIn the event this information is protected by the Federal Confidentiality of Alcohol and Drug Abuse Patient Records regulations: The Federal rules restrict any use of the information to criminally investigate or prosecute any alcohol or drug abuse patient.[facility] CenterIn the event this information is protected by the Federal Confidentiality of Alcohol and Drug Abuse Patient Records regulations: The Federal rules restrict any use of the information to criminally investigate or prosecute any alcohol or drug abuse patient.[facility] CenterIn the event this information is protected by the Federal Confidentiality of Alcohol and Drug Abuse Patient Records regulations: The Federal rules restrict any use of the information to criminally investigate or prosecute any alcohol or drug abuse patient.[facility] CenterIn the event this information is protected by the Federal Confidentiality of Alcohol and Drug Abuse Patient Records regulations: The Federal rules restrict any use of the information to criminally investigate or prosecute any alcohol or drug abuse patient.[facility] CenterIn the event this information is protected by the Federal Confidentiality of Alcohol and Drug Abuse Patient Records regulations: The Federal rules restrict any use of the information to criminally investigate or prosecute any alcohol or drug abuse patient.[facility] CenterIn the event this information is protected by the Federal Confidentiality of Alcohol and Drug Abuse Patient Records regulations: The Federal rules restrict any use of the information to criminally investigate or prosecute any alcohol or drug abuse patient.[facility] CenterIn the event this information is protected by the Federal Confidentiality of Alcohol and Drug Abuse Patient Records regulations: The Federal rules restrict any use of the information to criminally investigate or prosecute any alcohol or drug abuse patient.[facility] CenterIn the event this information is protected by the Federal Confidentiality of Alcohol and Drug Abuse Patient Records regulations: The Federal rules restrict any use of the information to criminally investigate or prosecute any alcohol or drug abuse patient.[facility] CenterIn the event this information is protected by the Federal Confidentiality of Alcohol and Drug Abuse Patient Records regulations: The Federal rules restrict any use of the information to criminally investigate or prosecute any alcohol or drug abuse patient.[facility] CenterIn the event this information is protected by the Federal Confidentiality of Alcohol and Drug Abuse Patient Records regulations: The Federal rules restrict any use of the information to criminally investigate or prosecute any alcohol or drug abuse patient.[facility] CenterIn the event this information is protected by the Federal Confidentiality of Alcohol and Drug Abuse Patient Records regulations: The Federal rules restrict any use of the information to criminally investigate or prosecute any alcohol or drug abuse patient.[facility] CenterIn the event this information is protected by the Federal Confidentiality of Alcohol and Drug Abuse Patient Records regulations: The Federal rules restrict any use of the information to criminally investigate or prosecute any alcohol or drug abuse patient.[facility] CenterIn the event this information is protected by the Federal Confidentiality of Alcohol and Drug Abuse Patient Records regulations: The Federal rules restrict any use of the information to criminally investigate or prosecute any alcohol or drug abuse patient.[facility] CenterIn the event this information is protected by the Federal Confidentiality of Alcohol and Drug Abuse Patient Records regulations: The Federal rules restrict any use of the information to criminally investigate or prosecute any alcohol or drug abuse patient.[facility] CenterIn the event this information is protected by the Federal Confidentiality of Alcohol and Drug Abuse Patient Records regulations: The Federal rules restrict any use of the information to criminally investigate or prosecute any alcohol or drug abuse patient.[facility] CenterIn the event this information is protected by the Federal Confidentiality of Alcohol and Drug Abuse Patient Records regulations: The Federal rules restrict any use of the information to criminally investigate or prosecute any alcohol or drug abuse patient.[facility] CenterIn the event this information is protected by the Federal Confidentiality of Alcohol and Drug Abuse Patient Records regulations: The Federal rules restrict any use of the information to criminally investigate or prosecute any alcohol or drug abuse patient.[facility] CenterIn the event this information is protected by the Federal Confidentiality of Alcohol and Drug Abuse Patient Records regulations: The Federal rules restrict any use of the information to criminally investigate or prosecute any alcohol or drug abuse patient.[facility] CenterIn the event this information is protected by the Federal Confidentiality of Alcohol and Drug Abuse Patient Records regulations: The Federal rules restrict any use of the information to criminally investigate or prosecute any alcohol or drug abuse patient.[facility] CenterIn the event this information is protected by the Federal Confidentiality of Alcohol and Drug Abuse Patient Records regulations: The Federal rules restrict any use of the information to criminally investigate or prosecute any alcohol or drug abuse patient.[facility] CenterIn the event this information is protected by the Federal Confidentiality of Alcohol and Drug Abuse Patient Records regulations: The Federal rules restrict any use of the information to criminally investigate or prosecute any alcohol or drug abuse patient.[facility] CenterIn the event this information is protected by the Federal Confidentiality of Alcohol and Drug Abuse Patient Records regulations: The Federal rules restrict any use of the information to criminally investigate or prosecute any alcohol or drug abuse patient.[facility] CenterIn the event this information is protected by the Federal Confidentiality of Alcohol and Drug Abuse Patient Records regulations: The Federal rules restrict any use of the information to criminally investigate or prosecute any alcohol or drug abuse patient.[facility] CenterIn the event this information is protected by the Federal Confidentiality of Alcohol and Drug Abuse Patient Records regulations: The Federal rules restrict any use of the information to criminally investigate or prosecute any alcohol or drug abuse patient.[facility] CenterIn the event this information is protected by the Federal Confidentiality of Alcohol and Drug Abuse Patient Records regulations: The Federal rules restrict any use of the information to criminally investigate or prosecute any alcohol or drug abuse patient.[facility] CenterIn the event this information is protected by the Federal Confidentiality of Alcohol and Drug Abuse Patient Records regulations: The Federal rules restrict any use of the information to criminally investigate or prosecute any alcohol or drug abuse patient.[facility] CenterIn the event this information is protected by the Federal Confidentiality of Alcohol and Drug Abuse Patient Records regulations: The Federal rules restrict any use of the information to criminally investigate or prosecute any alcohol or drug abuse patient.[facility] CenterIn the event this information is protected by the Federal Confidentiality of Alcohol and Drug Abuse Patient Records regulations: The Federal rules restrict any use of the information to criminally investigate or prosecute any alcohol or drug abuse patient.[facility] CenterIn the event this information is protected by the Federal Confidentiality of Alcohol and Drug Abuse Patient Records regulations: The Federal rules restrict any use of the information to criminally investigate or prosecute any alcohol or drug abuse patient.[facility] CenterIn the event this information is protected by the Federal Confidentiality of Alcohol and Drug Abuse Patient Records regulations: The Federal rules restrict any use of the information to criminally investigate or prosecute any alcohol or drug abuse patient.[facility] CenterIn the event this information is protected by the Federal Confidentiality of Alcohol and Drug Abuse Patient Records regulations: The Federal rules restrict any use of the information to criminally investigate or prosecute any alcohol or drug abuse patient.[facility] CenterIn the event this information is protected by the Federal Confidentiality of Alcohol and Drug Abuse Patient Records regulations: The Federal rules restrict any use of the information to criminally investigate or prosecute any alcohol or drug abuse patient.[facility] CenterIn the event this information is protected by the Federal Confidentiality of Alcohol and Drug Abuse Patient Records regulations: The Federal rules restrict any use of the information to criminally investigate or prosecute any alcohol or drug abuse patient.[facility] CenterIn the event this information is protected by the Federal Confidentiality of Alcohol and Drug Abuse Patient Records regulations: The Federal rules restrict any use of the information to criminally investigate or prosecute any alcohol or drug abuse patient.[facility] the event this information is protected by the Federal Confidentiality of Alcohol and Drug Abuse Patient Records regulations: The Federal rules restrict any use of the information to criminally investigate or prosecute any alcohol or drug abuse patient.[facility] CenterIn the event this information is protected by the Federal Confidentiality of Alcohol and Drug Abuse Patient Records regulations: The Federal rules restrict any use of the information to criminally investigate or prosecute any alcohol or drug abuse patient.[facility] CenterIn the event this information [...] alcohol or drug abuse patient.[facility] CenterIn the event this information is protected by the Federal Confidentiality of Alcohol and Drug Abuse Patient Records regulations: The Federal rules restrict any use of the information to criminally investigate or prosecute any alcohol or drug abuse patient.[facility] CenterIn the event this information is protected by the Federal Confidentiality of Alcohol and Drug Abuse Patient Records regulations: The Federal rules restrict any use of the information to criminally investigate or prosecute any alcohol or drug abuse patient.[facility] Care Teams (unrecognized sec [...] Role Status Dates Gay Natalie Britt , LOBSTERMAN-C Primary Care Provider Active Start: December 12, 2024 End: December 12, 2024Luiz Gee ProviderActiveStart: December 12, 2024 End: December 12, 2024 Team Status: Inactive Member Role Status Dates Gay De La Torre , LOBSTERMAN-C Primary Care Provider Active Start: January 17, 2025 End: January 17, 2025Pefrank Arnett NPAttending ProviderActiveStart: January 17, 2025 End: January 17, 2025 Team Status: Active Member Role Status Dates Gay De La Torre LOBSTERMAN-C Primary Care Provider Active Start: January 31, 2025 Bill Pickeringending ProviderActiveStart: January 31, 2025 Amy Pickering ProviderActiveStart: January 31, 2025 Team Status: Inactive Member Role Status Dates Gay De La Torre LOBSTERMAN-C Primary Care Provider Active Start: February 14, [...] Role Status Dates Gay De La Torre LOBSTERMAN-C Primary Care Provider Active Start: November 21, 2024 Adolfo Kang MDAttending ProviderActiveStart: November 21, 2024 Team Status: Inactive Member Role Status Dates Gay De La Torre LOBSTERMAN-C Primary Care Provider Active Start: November 21, 2024 End: November 21, 2024Adolfo Kang MDAttending ProviderActiveStart: November 21, 2024 End: November 21, 2024 Team Status: Active Member Role Status Dates Gay De La Torre LOBSTERMAN-C Primary Care Provider Active Start: November 22, [...] MemberRelationshipSpecialtyStart DateEnd Date Gay De La Torre, FIELD MARKETING COORDINATOR.CLINICAL RESEARCH SPEC [address] [id number] PCP - GeneralFamily Practice10/24/21Team MemberRelationshipSpecialtyStart DateEnd Date Gay De La Torre, FIELD MARKETING COORDINATOR.CLINICAL RESEARCH SPEC [address] [place] [address] PCP - GeneralFamily Medicine10/24/21 Manuel Ferris MD [address] [place] [address] ReferringFamily Medicine02/12/22Team MemberRelationshipSpecialtyStart DateEnd Date Manuel Ferris MD [address] [place] [address] PCP - GeneralFamily Gcmjyccm28/7/22 Manuel Ferris MD [address] [place] [address] ReferringFamily Medicine02/12/22Team MemberRelationshipSpecialtyStart DateEnd Date Manuel Ferris MD [address] [facility] [place] [place] [address] PCP - Generalmily Bvttmlrn86/7/22 Manuel Ferris MD [address] [facility] [place] [address] ReferringFamily Medicine02/12/22Team MemberRelationshipSpecialtyStart DateEnd Date Manuel Ferris MD [address] [facility] [place] [address] PCP - Generalmi Gucaeqsw11/7/22 Manuel Ferris MD [address] [facility] [place] [address] ReferringFamily Medicine02/12/22Team MemberRelationshipSpecialtyStart DateEnd Date Manuel Ferris MD [address] [facility] [place] [address] PCP - Generalmily Hgpfcezd88/7/22 Manuel Ferris MD [address] [facility] [place] [address] ReferringFamily Medicine02/12/22Team MemberRelationshipSpecialtyStart DateEnd Date Manuel Ferris MD [address] [facility] [place] [address] PCP - Generalmily Jrijoaje06/7/22 Manuel Ferris MD [address] [facility] [place] [address] ReferringFamily Medicine02/12/22Team MemberRelationshipSpecialtyStart DateEnd Date Manuel Ferris MD [address] [facility] [place] [address] PCP - GeneralFamily Mfsdlvfm99/7/22 Manuel Ferris MD [address] [facility] [place] [address] ReferringFamily Medicine02/12/22Team MemberRelationshipSpecialtyStart DateEnd Date Manuel Ferris MD [address] [facility] [place] [address] PCP - GeneralFamily Pwlwvuuz24/7/22 Manuel Ferris MD [address] [facility] [place] [address] ReferringFamily Medicine02/12/22Team MemberRelationshipSpecialtyStart DateEnd Date Manuel Ferris MD [address] [facility] [place] [address] PCP - GeneralFamily Tsilapof69/7/22 Manuel Ferris MD [address] [facility] [place] [address] ReferringFamily Medicine02/12/22Team MemberRelationshipSpecialtyStart DateEnd Date Manuel Ferris MD [address] [facility] [place] [address] PCP - GeneralFamily Yyddmvpy49/7/22 Manuel Ferris MD [address] [facility] [place] [address] ReferringFamily Medicine02/12/22Team MemberRelationshipSpecialtyStart DateEnd Date Manuel Ferris MD [address] [facility] [place] [address] PCP - GeneralFamily Iyjzfjpu18/7/22 Manuel Ferris MD [address] [facility] [place] [address] ReferringFamily Medicine02/12/22Team MemberRelationshipSpecialtyStart DateEnd Date Manuel Ferris MD [address] [facility] [place] [address] PCP - GeneralFamily Fhfcsgme17/7/22 Manuel Ferris MD [address] [facility] [place] [address] ReferringFamily Medicine02/12/22Team MemberRelationshipSpecialtyStart DateEnd Date Manuel Ferris MD [address] [facility] [place] [address] PCP - GeneralFamily Nhsxjxev63/7/22 Manuel Ferris MD [address] [facility] [place] [address] ReferringFamily Medicine02/12/22Team MemberRelationshipSpecialtyStart DateEnd Date Manuel Ferris MD [address] [facility] [place] [address] PCP - GeneralFamily Znlakxvy94/7/22 Manuel Ferris MD [address] [facility] [place] [address] ReferringFamily Medicine02/12/22Team MemberRelationshipSpecialtyStart DateEnd Date Manuel Ferris MD [address] [facility] [place] [address] PCP - GeneralFamily Kfeojwgp28/7/22 Manuel Ferris MD [address] [facility] [place] [address] ReferringFamily Medicine02/12/22Team MemberRelationshipSpecialtyStart DateEnd Date Manuel Ferris MD [address] [facility] [place] [address] PCP - GeneralFamily Sldjqads84/7/22 Manuel Ferris MD [address] [facility] [place] [address] ReferringFamily Medicine02/12/22Team MemberRelationshipSpecialtyStart DateEnd Date Manuel Ferris MD [address] [facility] [place] [address] PCP - GeneralFamily Sktgkrdk42/7/22 Manuel Ferris MD [address] [facility] [place] [address] ReferringFamily Medicine02/12/22Team MemberRelationshipSpecialtyStart DateEnd Date Manuel Ferris MD [address] [facility] [place] [address] PCP - Generalmily Leoxubui87/7/22 Manuel Ferris MD [address] [facility] [place] [address] ReferringFamily Medicine02/12/22Team MemberRelationshipSpecialtyStart DateEnd Date Manuel Ferris MD [address] [facility] [place] [address] PCP - Generalmily Rzbwjyvq31/7/22 Manuel Ferris MD [address] [facility] [place] [address] ReferringFamily Medicine02/12/22Team MemberRelationshipSpecialtyStart DateEnd Date Manuel Ferris MD [address] [facility] [place] [address] PCP - GeneralFamily Hwlbpoqf60/7/22 Manuel Ferris MD [address] [place] [address] ReferringFamily Medicine02/12/22Team MemberRelationshipSpecialtyStart DateEnd Date Manuel Ferris MD [address] [place] [address] PCP - GeneralFamily Rinmaepr42/7/22 Manuel Ferris MD [address] [place] [address] ReferringFamily Medicine02/12/22Team MemberRelationshipSpecialtyStart DateEnd Date Manuel Ferris MD [address] [place] [address] PCP - GeneralFamily Todjcrrz20/7/22 Manuel Ferris MD [address] [place] [address] ReferringFamily Medicine02/12/22Team MemberRelationshipSpecialtyStart DateEnd Date Manuel Ferris MD PCP - GeneralFamily Xeigiccy00/7/22 Manuel Ferris MD ReferringFamily Medicine02/12/22Team MemberRelationshipSpecialtyStart DateEnd Date Manuel Ferris MD PCP - GeneralFamily Hewrimhx73/7/22 Manuel Ferris MD ReferringFamily Medicine02/12/22Team MemberRelationshipSpecialtyStart DateEnd Date Manuel Ferris MD PCP - GeneralFamily Yljimwgy11/7/22 Manuel Ferris MD ReferringFamily Medicine02/12/22Team MemberRelationshipSpecialtyStart DateEnd Date Manuel Ferris MD PCP - GeneralFamily Zkujkvqq98/7/22 Manuel Ferris MD ReferringFamily Medicine02/12/22Team MemberRelationshipSpecialtyStart DateEnd Date Manuel Ferris MD PCP - GeneralFamily Nrgvykdn18/7/22 Manuel Ferris MD ReferringFamily Medicine02/12/22Team MemberRelationshipSpecialtyStart DateEnd Date Manuel Ferris MD PCP - GeneralFamily Kizmmmnz04/7/22 Manuel Ferris MD ReferringFamily Medicine02/12/22Team MemberRelationshipSpecialtyStart DateEnd Date Manuel Ferris MD PCP - GeneralFamily Hoypmxfu03/7/22 Manuel Ferris MD ReferringFamily Medicine02/12/22Team MemberRelationshipSpecialtyStart DateEnd Date Manuel Ferris MD PCP - GeneralFamily Wcpyrjwc61/7/22 Manuel Ferris MD ReferringFamily Medicine02/12/22Team MemberRelationshipSpecialtyStart DateEnd Date Manuel Ferris MD PCP - GeneralFamily Wehuspgg84/7/22 Manuel Ferris MD ReferringFamily Medicine02/12/22Team MemberRelationshipSpecialtyStart DateEnd Date Manuel Ferris MD PCP - Generalmily Bhsbrzpk65/7/22 Manuel Ferris MD ReferringFamily Medicine02/12/22Team MemberRelationshipSpecialtyStart DateEnd Date Manuel Ferris MD PCP - Generalmily Wiualwvk84/7/22 Manuel Ferris MD ReferringFamily Medicine02/12/22Team MemberRelationshipSpecialtyStart DateEnd Date Manuel Ferris MD PCP - GeneralFamily Crtnnydj42/7/22 Manuel Ferris MD ReferringFamily Medicine02/12/22Team MemberRelationshipSpecialtyStart DateEnd Date Manuel Ferris MD PCP - GeneralFamily Yihyeeky12/7/22 Manuel Ferris MD ReferringFamily Medicine02/12/22Team MemberRelationshipSpecialtyStart DateEnd Date Manuel Ferris MD PCP - GeneralFamily Wfwrdthp15/7/22 Manuel Ferris MD ReferringFamily Medicine02/12/22Team MemberRelationshipSpecialtyStart DateEnd Date Manuel Ferris MD PCP - GeneralFamily Taauqfri18/7/22 Manuel Ferris MD ReferringFamily Medicine02/12/22Team MemberRelationshipSpecialtyStart DateEnd Date Manuel Ferris MD PCP - Generalmily Yhsiobkq57/7/22 Manuel Ferris MD ReferringFamily Medicine02/12/22Team MemberRelationshipSpecialtyStart DateEnd Date Manuel Ferris MD PCP - GeneralFamily Xrptgsjv18/7/22 Manuel Ferris MD ReferringFamily Medicine02/12/22Team MemberRelationshipSpecialtyStart DateEnd Date Manuel Ferris MD PCP - GeneralFamily Zjulswws90/7/22 Manuel Ferris MD ReferringFamily Medicine02/12/22Team MemberRelationshipSpecialtyStart DateEnd Date Manuel Ferris MD PCP - GeneralFamily Scysquqw20/7/22 Manuel Ferris MD ReferringFamily Medicine02/12/22Team MemberRelationshipSpecialtyStart DateEnd Date Manuel Ferris MD PCP - GeneralFamily Arjgjwpa32/7/22 Manuel Ferris MD ReferringFamily Medicine02/12/22Team MemberRelationshipSpecialtyStart DateEnd Date Manuel Ferris MD PCP - GeneralFamily Zlosciqg12/7/22 Manuel Ferris MD ReferringFamily Medicine02/12/22Team MemberRelationshipSpecialtyStart DateEnd Date Manuel Ferris MD PCP - GeneralFamily Yapfrpuq31/7/22 Manuel Ferris MD ReferringFamily Medicine02/12/22Team MemberRelationshipSpecialtyStart DateEnd Date Manuel Ferris MD PCP - GeneralFamily Oxpbrcdq74/7/22 Manuel Ferris MD ReferringFamily Medicine02/12/22Team MemberRelationshipSpecialtyStart DateEnd Date Manuel Ferris MD PCP - Generalmily Wmiwhqhc46/7/22 Manuel Ferris MD ReferringFamily Medicine02/12/22Team MemberRelationshipSpecialtyStart DateEnd Date Manuel Ferris MD PCP - Generalmily Exvxuiic49/7/22 Manuel Ferris MD Referringmily Medicine02/12/22Team MemberRelationshipSpecialtyStart DateEnd Date Manuel Ferris MD [facility] - [facility] Rrubcfjp54/7/22 Manuel Ferris [facility]02/12/22Team MemberRelationshipSpecialtyStart DateEnd Date Charles Nicole [address] [place] [address] PCP - General10/22/18 Michelle Jasmine, FIELD MARKETING COORDINATOR-CLINICAL RESEARCH SPEC [address] [place] [id number] Nurse PractitionerCardiology06/08/23Team MemberRelationshipSpecialtyStart DateEnd Date Gay De La Torre, FIELD MARKETING COORDINATOR-CLINICAL RESEARCH SPEC [address] [place] [address] PCP - General07/13/23 Michelle Jasmine, FIELD MARKETING COORDINATOR-CLINICAL RESEARCH SPEC [address] [facility] [address] [place], [place] [id number] Nurse PractitionerCardiology06/08/23 Aurora Patel MD [address] [facility] [address] [place] [address] Consulting PhysicianCardiology06/23/23Team MemberRelationshipSpecialtyStart Date End Date Manuel Ferris MD PCP - GeneralCass [facility] Iyikupqj18/7/22 Manuel Ferris MD ReferringFamily Medicine02/12/22Team MemberRelationshipSpecialtyStart DateEnd Date Manuel Ferris MD PCP - GeneralFamily Hrxfnemn83/7/22 Manuel Ferris MD ReferringFamily Medicine02/12/22 Team Status: Active Member Role Status Mark Salomon MD Primary Care Provider Active Start: July 28, 2023 Virgil Green MDAttchristopher ProviderActiveStart: July 28, 2023 Team MemberRelationshipSpecialtyStart DateEnd Date Manuel Ferris [facility] Ngredwcl23/[facility]/22 Manuel Ferris MD ReferringFabrockton va medical center Medicine02/12/22 Team Status: Inactive Member Role Status Mark Salomon MD Primary Care Provider Active Start: December 16, 2023 End: December 16, 2023Zarina Mccollum ProviderActiveStart: December 16, 2023 End: December 16, 2023Team MemberRelationshipSpecialtyStart DateEnd Date Manuel Ferris MD PCP - GeneralFamily Vcbclock21/7/22 Manuel Ferris MD ReferringFamily Medicine02/12/22Team MemberRelationshipSpecialtyStart DateEnd Date Manuel Ferris MD PCP - Generalmily Gnvrcmgl65/7/22 Manuel Ferris MD ReferringFamily Medicine02/12/22Team MemberRelationshipSpecialtyStart DateEnd Date Manuel Ferris MD PCP - GeneralFamily Dbafnxfg24/7/22 Manuel Ferris MD ReferringFamily Medicine02/12/22Team MemberRelationshipSpecialtyStart DateEnd Date Manuel Ferris MD PCP - GeneralFamily Esjzwons68/7/22 Manuel Ferris MD ReferringFamily Medicine02/12/22 Team Status: [...] End: February 15kendrick De La Torre , LOBSTERMAN-CPrimary Care ProviderActive Start: February 16, 2024 End: February 16, 2024 Team Status: Active Member Role Status Dates Adolfo Kang MD Attending Provider, Other Provider Active Start: February 16, 2024 Gay De La Torre , LOBSTERMAN-CPrimary Care ProviderActiveStart: February 16, 2024 Team Status: Inactive Member Role Status Dates Adolfo Kang MD Attending Provider Active Sta rt: February 28, 2024 End: February 27kendrick De La Torre , LOBSTERMAN-CPrimary Care ProviderActiveStart: February 28, 2024 End: February 28, 2024Team MemberRelationshipSpecialtyStart DateEnd Date Charles Nicole MD [address] [place] [address] PCP - GeneralFamily Medicine02/09/24 Team Status: Inactive Member Role Status Dates Gay De La Torre , LOBSTERMAN-C Primary Care Provider Active Start: March 16, 2024 End: March 16Luiz Park ProviderActiveStart: March 16, 2024 End: March 16, 2024Team MemberRelationshipSpecialtyStart DateEnd Charles Russell MD [address] [place] [address] PCP - GeneralFamily Medicine02/09/24Team MemberRelationshipSpecialtyStart DateEnd Charles Russell MD [address] [place] [address] PCP - Generalmily Medicine02/09/24Team MemberRelationshipSpecialtyStart DateEnd Date Charles Nicole MD [address] [place] [address] PCP - GeneralFamily Medicine02/09/24Team MemberRelationshipSpecialtyStart DateEnd Date Charles Nicole MD [address] [place] [facility] [place] [address] PCP - GeneralFamily Medicine02/09/24Team MemberRelationshipSpecialtyStart DateEnd Date Charles Nicole MD [address] [place] [address] PCP - GeneralFamily Medicine02/09/24Team MemberRelationshipSpecialtyStart DateEnd [facility] Manuel Ferris MD PCP - GeneralFamily Pxmgzqdl13/7/22 Manuel Ferris MD ReferringFamily Medicine02/12/22Team MemberRelationshipSpecialtyStart DateEnd Date Charles Nicole MD [address] [place] [address] PCP - GeneralFamily Medicine02/09/24Team MemberRelationshipSpecialtyStart DateEnd Date Charles Nicole MD [address] [place] [address] PCP - GeneralFamily Medicine02/09/24Team MemberRelationshipSpecialtyStart DateEnd Date Charles Nicole MD [address] [place] [address] PCP - GeneralFamily Medicine02/09/24Team MemberRelationshipSpecialtyStart DateEnd Date Charles Nicole MD [address] [place] [address] PCP - GeneralFamily Medicine02/09/24Team MemberRelationshipSpecialtyStart DateEnd Date Manuel Ferris MD PCP - GeneralFamily Xvqtnytg67/7/22 Manuel Ferris MD ReferringFamily Medicine02/12/22Team MemberRelationshipSpecialtyStart DateEnd Date Charles Nicole MD [address] [place] [address] PCP - GeneralFamily Medicine02/09/24Team MemberRelationshipSpecialtyStart DateEnd Date Manuel Ferris MD PCP - GeneralFamily Uracfeko01/7/22 Manuel Ferris MD ReferringFamily Medicine02/12/22Team MemberRelationshipSpecialtyStart DateEnd Date Manuel Ferris MD PCP - GeneralFamily Rlaqvkyy55/7/22 Manuel Ferris MD ReferringFamily Medicine02/12/22Team MemberRelationshipSpecialtyStart DateEnd Date Charles Nicole MD [address] [place] [address] PCP - GeneralFamily Medicine02/09/24Team MemberRelationshipSpecialtyStart DateEnd Date Manuel Ferris MD PCP - GeneralFamily Ynwsdkzo50/7/22 Manuel Ferris MD ReferringFabrockton [facility] Medicine02/12/22 Manuel Ferris MD [address] [place] [address] [facility]07/06/24 Team Status: Inactive Member Role Status Dates Gay De La Torre LOBSTERMAN-C Primary Care Provider Active Start: July 10, 2024 End: July 10, 2024Adolfo Kang MDAttchristopher ProviderActiveStart: July 10, 2024 End: July 10, 2024Team MemberRelationshipSpecialtyStart DateEnd Date Manuel Ferris MD PCP - Generalmily Kgzazahn17/7/22 Manuel Ferris MD ReferringFamily Medicine02/12/22 Manuel Ferris MD [address] [place] [address] [facility]07/06/24Team MemberRelationshipSpecialtyStart DateEnd Date Manuel Ferris MD [facility] - [facility] Bolshtzm06/7/22 Manuel Ferris MD ReferringFamily Medicine02/12/22 Manuel Ferris MD [address] [place] [address] ReferringFamily Medicine07/06/24 Team Status: Inactive Member Role Status Dates Gay De La Torre , LOBSTERMAN-C Primary Care Provider Active Start: July 19, 2024 End: July 19, 2024Shana Kang MDAttending ProviderActiveStart: July 19, 2024 End: July 19, 2024Team MemberRelationshipSpecialtyStart DateEnd Date Gay De La Torre MD [facility] [place] [address] Referring PhysicianFamily Medicine07/18/24Team MemberRelationshipSpecialtyStart DateEnd Date Manuel Ferris MD PCP - GeneralFamily Oetbcjmu80/7/22 Manuel Ferris MD ReferringFamily Medicine02/12/22 Manuel Ferris MD [facility] [place] [address] ReferringFamily Medicine07/06/24Team MemberRelationshipSpecialtyStart DateEnd Date Gay De La Torre MD [address] [place] [address] Referring Physicianmily Medicine07/18/24Team MemberRelationshipSpecialtyStart DateEnd Date Gay De La Torre, FIELD MARKETING COORDINATOR-CLINICAL RESEARCH SPEC [address] [place] [address] PCP - General07/13/23 Michelle Jasmine, FIELD MARKETING COORDINATOR-CLINICAL RESEARCH SPEC Nurse PractitionerCardiology06/08/23 Aurora Patel MD Consulting PhysicianCardiology06/23/23 Team Status: Active Member Role Status Dates Gay De La Torre LOBSTERMAN-C Primary Care Provider Active Start: July 19, 2024 Adolfo Kang MDAttending Provider, Other ProviderActiveStart: July 19, 2024 Team Status: Inactive Member Role Status Dates Gay De La Torre NP-C Primary Care Provider Active Start: July 31, 2024 End: July 31, 2024Shana Kang , MDAttending ProviderActiveStart: July 31, 2024 End: July 31, 2024Team MemberRelationshipSpecialtyStart DateEnd Date Manuel Ferris MD PCP - GeneralFamily Bgpfxpxp59/7/22 Manuel Ferris MD ReferringFamily Medicine02/12/22 Manuel Ferris MD [address] [place] [address] ReferringFamily Medicine07/06/24Team MemberRelationshipSpecialtyStart DateEnd Date Manuel Ferris MD PCP - GeneralFamily Glxmosah57/7/22 Manuel Ferris MD ReferringFamily Medicine02/12/22 Manuel Ferris MD [address] [place] [address] [facility]erring[facility]07/06/24Team MemberRelationshipSpecialtyStart DateEnd Date Manuel Ferris MD [facility] - [facility] Rnygiyll32/7/22 Manuel Ferris MD Referringmily Medicine02/12/22 Manuel Ferris MD [address] [place] [address] [facility]erring[facility]07/06/24 Team Status: Inactive Member Role Status Dates Gay De La Torre LOBSTERMAN-C Primary Care Provider Active Start: August 22, 2024 End: August 22, 2024Adolfo Kang MDAttchristopher ProviderActiveStart: August 22, 2024 End: August 22, 2024Team MemberRelationshipSpecialtyStart DateEnd Date Gay De La Torre MD [address] [place] [id number] Referring [facility]07/18/24Team MemberRelationshipSpecialtyStart DateEnd Date Manuel Ferris MD [facility] - [facility] Ypvilyyi85/7/22 Manuel Ferris MD [facility]erringCl[facility] Medicine02/12/22 Manuel Ferris MD [address] [place] [address] [facility]erring[facility]07/06/24Team MemberRelationshipSpecialtyStart DateEnd Date Manuel Ferris MD PCP - GeneralFamily Hctwphnw96/7/22 Manuel Ferris MD ReferringFamily Medicine02/12/22 Manuel Ferris MD [address] [place] [address] ReferringFamily Medicine07/06/24Team MemberRelationshipSpecialtyStart DateEnd Date Gay De La Torre MD [address] [place] [address] Referring [facility]icianCl[facility] Medicine07/18/24Team MemberRelationshipSpecialtyStart DateEnd Date Gay De La Torre MD [address] [place] [address] Referring [facility]Cl[facility] Medicine07/18/24Team MemberRelationshipSpecialtyStart DateEnd Date Manuel Ferris MD PCP - GeneralFamily Bxywfwbo21/7/22 Manuel Ferris MD ReferringFamily Medicine02/12/22 Manuel Ferris MD [address] [place] [address] ReferringFamily Medicine07/06/24Team MemberRelationshipSpecialtyStart DateEnd Date Manuel Ferris MD PCP - GeneralFamily Dxmktqcd86/7/22 Manuel Ferris MD ReferringFamily Medicine02/12/22 Manuel Ferris MD [address] [place] [address] ReferringFamily Medicine07/06/24Team MemberRelationshipSpecialtyStart DateEnd Date Manuel Ferris MD PCP - GeneralFamily Cucnzqvw53/7/22 Manuel Ferris MD ReferringFamily Medicine02/12/22 Manuel Ferris MD [address] [place] [id number] ReferringFami Medicine07/06/24Team MemberRelationshipSpecialtyStart DateEnd Date Manuel Ferris MD PCP - GeneralFamily Guuiejqq29/7/22 Manuel Ferris MD ReferringFamily Medicine02/12/22 Manuel Ferris MD [address] [place] [id number] ReferringFamily Medicine07/06/24Team MemberRelationshipSpecialtyStart DateEnd Date Manuel Ferris MD PCP - GeneralFamily Dvnxmviv83/7/22 Manuel Ferris MD ReferringFamily Medicine02/12/22 Manuel Freris MD [address] [place] [address] ReferringFamily Medicine07/06/24Team MemberRelationshipSpecialtyStart DateEnd Date Manuel Ferris MD PCP - GeneralFamily Nztvsecy22/7/22 Manuel Ferris MD ReferringFamily Medicine02/12/22 Manuel Ferris MD [address] [place] [address] ReferringFami Medicine07/06/24Team MemberRelationshipSpecialtyStart DateEnd Date Manuel Ferris MD PCP - GeneralFamily Yrrcpwby90/7/22 Manuel Ferris MD ReferringFamily Medicine02/12/22 Manuel Ferris MD [address] [place] [phone] ReferringFamily Medicine07/06/24Team MemberRelationshipSpecialtyStart DateEnd Date Manuel Ferris MD PCP - GeneralFamily Zprywdwe71/7/22 Manuel Ferris MD ReferringFamily Medicine02/12/22 Manuel Ferris MD [address] [facility] [place] [address] ReferringFamily Medicine07/06/24Team MemberRelationshipSpecialtyStart DateEnd Date Manuel Ferris MD PCP - GeneralFamily Jhpwckib39/7/22 Manuel Ferris MD ReferringFamily Medicine02/12/22 Manuel Ferris MD [address] [facility] [place] [address] ReferringFamily Medicine07/06/24Team MemberRelationshipSpecialtyStart DateEnd Date Manuel Ferris MD PCP - GeneralFamily Zzrssyfh03/7/22 Manuel Ferris MD ReferringFamily Medicine02/12/22 Manuel Ferris MD [address] [place] [address] ReferringFamily Medicine07/06/24Team MemberRelationshipSpecialtyStart DateEnd Date Manuel Ferris MD PCP - GeneralFamily Ebgeubcq91/7/22 Manuel Ferris MD ReferringFamily Medicine02/12/22 Manuel Ferris MD [address] [facility] [place] [address] ReferringFamily Medicine07/06/24Team MemberRelationshipSpecialtyStart DateEnd Date Manuel Ferris MD [facility] - [facility] Yuynweds65/7/22 Maunel Ferris MD ReferringFadcly Medicine02/12/22 Manuel Ferris MD [address] [place] [address] [facility]erring[facility]07/06/24Team MemberRelationshipSpecialtyStart DateEnd Date Manuel Ferris MD [facility] Kqaltyqc57/7/22 Manuel Ferris MD [facility]erringCl[facility] Medicine02/12/22 Manuel Ferris MD [address] [place] [address] [facility]erring[facility]07/06/24 Team Status: Inactive Member Role Status Dates [...] DateEnd Date Gay De La Torre MD [address] [place], [place] [phone] Referring [facility]07/18/24Team MemberRelationshipSpecialtyStart End Manuel Ferris MD PCP - Generalmily Dwydroze34/7/22 Manuel Ferris MD ReferringFamily Medicine02/12/22 Manuel Ferris MD [address] [place] [address] [facility]erring[facility]07/06/24Team MemberRelationshipSpecialtyStart DateEnd [facility] Manuel Ferris MD [facility] - [facility] Jsasqoxe85/7/22 Manuel Ferris MD Referringmily Medicine02/12/22 Manuel Ferris MD [address] [place] [address] [facility]erring[facility]07/06/24Team MemberRelationshipSpecialtyStart End Manuel Ferris MD [facility] - [facility] Mjdjgqql74/7/22 Manuel Ferris MD ReferringFamily Medicine02/12/22 Manuel Ferris MD [address] [place] [address] [facility]erring[facility]07/06/24 Team Status: Inactive Member Role Status Dates Gay De La Torre LOBSTERMAN-C Primary Care Provider Active Start: January 31, 2025 End: January 31, 2025Zarina Pickering ProviderActiveStart: January 31, 2025 End: January 31, 2025Team MemberRelationshipSpecialtyStart [place] [address] [place] [address] Referring PhysicianP[facility]07/18/24Team MemberRelationshipSpecialtyStart DateEnd Date Gay De La Torre MD [address] [place] [address] Referring [facility]icianP[facility]07/18/24Team MemberRelationshipSpecialtyStart DateEnd Date Gay De La Torre MD [address] [place], [place] [phone] Referring [facility]icianP[facility]07/18/24 Team Status: Inactive Member Role Status Dates Terence Blum MD Attending Provider Active Sta rt: March 02, 2025 End: March 02, 2025Pafrancesco De La Torre [facility]im[facility] Care ProviderActiveStart: March 02, 2025 End: March 02, 2025Team MemberRelationshipSpecialtyStart DateEnd Date Gay De La Torre MD [address] [place], [place] [phone] Referring [facility]07/18/24 Team Status: Inactive Member Role Status [...] Role/Relationship Status Dates Gay De La Torre LOBSTERMAN-C Primary Care Provider Active Start: January 17, 2025 End: January 17, 2025Pefrank Arnett NPAttending ProviderActiveStart: January 17, 2025 End: January 17, 2025 Team Status: Active Member Role/Relationship Status Dates Gay De La Torre LOBSTERMAN-C Primary Care Provider Active Start: January 31, 2025 Adolfo Kang MDAttending ProviderActiveStart: January 31, 2025 Adolfo Kang MDOther ProviderActiveStart: January 31, 2025 Team Status: Inactive Member Role/Relationship Status Dates Gay De La Torre LOBSTERMAN-C Primary Care Provider Active Start: February 14, [...] February 28, 2025Pafrancesco De La Torre , LOBSTERMAN-CPrimary Care ProviderActiveStart: February 28, 2025 End: February 28, 2025 Team Status: Inactive Member Role/Relationship Status Dates Terence Blum MD Attending Provider Active Sta rt: March 02, 2025 End: March 02, 2025Pafrancesco De La Torre , LOBSTERMAN-CPrimary Care ProviderActiveStart: March 02, 2025 End: March 02, 2025 Team Status: Inactive Member Role/Relationship Status Dates Jose Perez DO Attending Provider Active S tart: March 03, 2025 End: March 03, 2025 Team Status: Inactive Member Role/Relationship Status Dates Gay De La Torre LOBSTERMAN-C Attending Provider Active Start: March 09, 2025 End: March 09, 2025 Team Status: Active Member Role/Relationship Status Dates NON STAFF Primary Care Provider Active Team Status: Inactive Member Role/Relationship Status Dates Adolfo Kang MD Attending Provider Active Sta rt: March 13, 2025 End: March 13, 2025NON STAFFPratrium healthry Care ProviderActiveStart: March 13, 2025 End: March 13, 2025Team MemberRelationshipSpecialtyStart DateEnd Gay De La TorreTRUE [address] [place] [address] PCP - GeneralNurse Practitioner - Mllhbv68/4/24 Inactive Administered Medications - up to 3 [...] BE BASED ON THE PRIMARY CLINICAL RECORDS. [employer] provides no warranty or guarantee of the accuracy or completeness of information in this document.
== END 2025-03-22 08:49 | disposition home or self-care (01) ==
LOC: US 08:48
PROVIDERS: PCP Nurse Practitioner Family; Visit Provider Otolaryngology
DX: E04.1 Nontoxic single thyroid nodule (principal)
CPT/HCPCS: 76536

== ENCOUNTER 2025-03-22 08:57 | Outpatient (OUT) | payer OTHER, SELFPAY ==
--- OUTSIDE RECORDS SUMMARY | 2025-03-22 09:16 | XMS_ITS | CCD ---
Author Organization [facility] Care Team Providers Care Whip Operator Name Role Phone VICTOR MANUEL GUZMAN Referring Unavailable Unavailable Primary Care Provider JONAS Lynne Referring Unavailable Britt VOCATIONAL EXAMINER.TRUE, Gay Primary Care Provider [phone] Mirela Baer Unavailable Britt VOCATIONAL EXAMINER.OFFICE SERVICES ASSISTANT, Gay Primary Care Provider Manuel Ferris MD Unavailable Manuel Ferris MD Primary Care Provider Manuel Ferris MD Unavailable Manuel Ferris MD Primary Care Provider [phone] Manuel Ferris MD Unavailable Manuel Ferris MD Primary Care Provider [phone] MANUEL LEYVA Primary Care Unavailable [...] Attending Unavailable TEMO ., OLY Admitting Unavailable MARTINS FERRY, DR AURORA Pacheco Consulting Unavailable HOY ., [...] Care Provider Mitali THORPE-TRUE, Michelle L Unavailable [phone] Unavailable Primary Care Provider UnavailAurora Carney MD Unavailable Britt TABOR Gay S Primary Care Provider Manuel Ferris MD Primary Care Provider [phone] MD Adolfo Kang Attending Provider CARISSA De La Torre-Ananya Estrada Primary Care Provider Charles Nicole MD Primary Care Provider CALOS ARCE Attending Unavailable Unavailable Primary Care Provider UnavailManuel Calixto MD Unavailable Britt FILM COATER-C, Gay Estrada Primary Care Provider [phone] Jorge Luis LEE, Adolfo Jane Attending Provider ALHAJI VICTORIA Attending Unavailable MANUEL FERRIS Primary Care Unavailable ALHAJI VICTORIA Attending Unavailable VAIBHAV CARVALHO Referring Unavailable MANUEL FERRIS M Primary Care Unavailable Gay De La Torre MD Unavailable Mitali TABOR, Michelle London Unavailable [phone] Aurora Patel MD Unavailable Gay Workman S Primary Care Provider LOIS HOLM Attending Unavailable BRITT, GAY S Primary Care Unavailable HOLMLOIS Attending Unavailable LOIS HOLM Referring Unavailable BRITT, GAY S Primary Care Unavailable Britt FILM COATER-C, Gay Natalie Primary Care Provider Adolfo Kang MD Attending Provider Britt FILM COATER-C, Gay Natalie Primary Care Provider Jorge Luis LEE, Adolfo Jane Attending Provider Arnett FILM COATER, Margie Attending Provider [phone] Britt FILM COATER-C, Gay Natalie Primary Care Provider [phone] Jorge Luis LEE, Adolfo Jane Attending Provider Bandar Portillo APRN Attending Provider Britt FILM COATER-C, Gay Natalie Primary Care Provider Adolfo Kang MD Attending Provider [phone] Janes Barfield MD Attending Provider [phone] Adolfo Kang MD Other Provider Britt FILM COATER-C, Gay Natalie Primary Care Provider Adolfo Kang MD Attending Provider [phone] Mathew Ji MD Attending Provider [phone] BERNABE ENGLISH Attending Unavailable GORDO BARFIELD Attending Unavailable MELISSA HUDDLESTON Attending Unavailable OLY PARNELL Referring Unavailable PETBERNABE HOWE Attending Unavailable TERENCE DAY Attending Unavailable BERNABE ENGLISH Referring Unavailable LUAN VALDIVIA Attending Unavailable OLY PARNELL Attending Unavailable MARKY NICHOLS Attending Unavailable GORDO BARFIELD Attending Unavailable BRITT, GAY Referring Unavailable OLY PARNELL Attending Unavailable Britt FILM COATER-C, Gay Natalie Primary Care Provider Melquiades FILM COATER, Margie Attending Provider Terence Blum MD Attending Provider [phone] Jose Perez DO Attending Provider Britt FILM COATER-C, Gay Natalie Attending Provider [phone] Britt FILM COATER-C, Gay Estrada Primary Care Provider Bandar Portillo APRN Attending Provider NON STAFF Primary Care Provider UnavailGay Infantee Admitting Unavailable Gay De La Torre Attending Unavailable Jose Perze Admitting Unavailable Jose Perez Attending Unavailable Janes [...] OnsetReaction(s) FacilityDihydrofolate Reductase Inhibitors (antibiotic) (3 sources)TrimethoprimDrug Iqudvfu90-40-0302Auzae: See CommentsSelect [facility] Doxycycline (3 sources)DoxycyclineDrug Qzgaxiv44-43-3946Yfmky: See [facility] Latex (3 sources)LatexSubstance Qjtdcqk35-53-3483DpolSojaqdpll ClinicLincosamides (antibiotic) (3 sources)ClindamycinDrug Ihocfgt85-25-1492LlxjnotQoetevxzz ClinicOpioid Agonists (3 sources)CodeineDrug Cjlzkpy49-78-5110Qpnnk: See CommentsSelect Medical Trihealth Rehabilitation Hospital Sulfamethoxazole / Trimethoprim (4 sources)Sulfamethoxazole / TrimethoprimDrug Wizmkkw45-37-4864FlesrzqoGxmdk HealthSulfonamides (antibiotic) (3 sources)SulfamethoxazoleDrug Xpjtmxv26-67-3826Eaugv: See [facility] Work Phone: (20 sources)Codeine; Translations: [CODEINE]Drug Nbgrrfc18-39-4951Ydrno: See Comments, Shortness of BreathSelect [facility] (20 sources)Latex; Translations: [LATEX]Drug Xbvkgab10-75-2071IoeyPaqqjsyuj Clinic (20 sources)Sulfamethoxazole; Translations: [SULFAMETHOXAZOLE]Drug Allergy 71-98-3594HQ Upset, Other: See CommentsSelect Medical [facility] Hospital (20 sources)Clindamycin; Translations: [CLINDAMYCIN]Drug Egcuhsv76-53-8730 UnknownSelect Medical Tri[facility] Rehabilitation Hospital (4 sources)Sulfamethoxazole / TrimethoprimDrug AllergyBaptist [facility] Hospital [facility]ision Other (20 sources)Doxycycline; Translations: [DOXYCYCLINE]Drug Kkawivq94-98-8773Lmpte: See Comments, Other, Unknown, Other (See Comments)[facility] (20 sources)Sulfamethoxazole / Trimethoprim; Translations: [SULFAMETHOXAZOLE-TRIMETHOPRIM]Drug Ugtaygo18-86-9695Envpvwgu, Other, GI Disturbance, Other (See Comments), DyspepsiaSelect Medical [facility] Rehabilitation Hospital (20 sources)Trimethoprim; Translations: [TRIMETHOPRIM]Drug Jqfytde75-37-0224 Other: See CommentsSelect Medical [facility]health Rehabilitation Hospital (1 source)LatexDrug allergy (disorder)24-52-2122Fxo [facility] Repository (1 source)Sulfamethoxazole / TrimethoprimDrug Qgeznik97-08-7971[facility] (20 sources)SulfamethoxazoleAllergy to jbljnzgex06-67-5332[facility] (20 sources)LatexPropensity to adverse xtsiwcuuw40-78-2552GdtaBZMI Healthcare (2 sources)Omeprazole; Translations: [OMEPRAZOLE]Drug Gfiowsf29-94-3080 [facility] Repository (2 sources)pantoprazole; Translations: [PANTOPRAZOLE]Drug Urchpva40-29-3572 [facility] Repository (1 source)ClindamycinDrug Rdjucrm49-58-0513AzbidogsdC[facility] (1 source)SulfamethoxazoleDrug Xilpwxj24-08-3788VybszdhrzCleveland Clinic [facility] Rep[facility] (1 source)TrimethoprimDrug Znsplhy45-55-9820MmpkeoyfoCleveland Clinic [facility] Rep[facility] (1 source)Sulfonamides (Antibiotic)Propensity to adverse reactions to drug 62-91-0641QcqafsvzEpzroKettering Health [facility] Center Medications Current Medications MedicationDrug Class(es)DatesSig (Normalized)Sig (Original)acetaminophen 500 mg oral tablet (20 sources)Start: 08-64-5700ddwo 2 tablets by mouth every six hours as needed for painAcetaminophen (Acetaminophen Extra Strength) 500 mg tablet Active 1000 MG PO Every 6 hours as needed for pain January 31, 2025 12:00am Complies with drug therapyStart: 01-24-2025 End: 62-77-6835tcef 1 dose by mouth once, then take 4000 mg by mouth once daily 650 mg, ORAL, ONCE, 1 dose, On Wed01/24/25 at 0930, No more than 4000 mg of acetaminophen should be given per day (FROM ALL SOURCES)Start: 01-11-2025 End: 76-83-5228lvmh 1 dose by mouth once1,000 mg, ORAL, ONCE, 1 dose, On Wed01/11/25 at 1430Start: 12-14-2024 End: 24-59-8455ynxm 1 dose by mouth once1,000 mg, ORAL, ONCE, 1 dose, On Wed12/14/24 at 1430Start: 11-29-2024 End: 33-41-3875hdpr 1 dose by mouth once, then take 4000 mg by mouth once daily 650 mg, ORAL, ONCE, 1 dose, On Wed11/29/24 at 1000, No more than 4000 mg of acetaminophen should be given per day (FROM ALL SOURCES)Start: 11-16-2024 End: 96-00-8277offr 1 dose by mouth once1,000 mg, ORAL, ONCE, 1 dose, On Wed11/16/24 at 1400Start: 10-31-2024 End: 81-26-5788abti 1 dose by mouth once, then take 4000 mg by mouth once daily 650 mg, ORAL, ONCE, 1 dose, On Wed10/31/24 at 1000, No more than 4000 mg of acetaminophen should begiven per day (FROM ALL SOURCES)Start: 10-19-2024 End: 05-03-0179pkzz 1 dose by mouth once1,000 mg, ORAL, ONCE, 1 dose, On Wed10/19/24 at 1430Start: 2024 End: 93-40-0392chas 1 dose by mouth once1,000 mg, ORAL, ONCE, 1 dose, On Wed10/04/24 at 1430Start: 10-02-2024 End: 79-62-6394irjs 1 dose by mouth once, then take 4000 mg by mouth once daily 650 mg, ORAL, ONCE, 1 dose, On Wed10/02/24 at 0900, No more than 4000 mg of acetaminophen should begiven per day (FROM ALL SOURCES)Start: 09-18-2024 End: 62-51-2472xqws 1 dose by mouth once1,000 mg, ORAL, ONCE, 1 dose, On Wed09/18/24 at 1300Start: 09-06-2024 End: 51-18-5305dmqa 1 dose by mouth once, then take 4000 mg by mouth once daily 650 mg, ORAL, ONCE, 1 dose, On Wed09/06/24 at 0930, No more than 4000 mg of acetaminophen should begiven per day (FROM ALL SOURCES)Start: 08-08-2024 End: 78-40-8154tnnd 1 dose by mouth once, then take 4000 mg by mouth once daily 650 mg, ORAL, ONCE, 1 dose, On Wed08/08/24 at 0930, No more than 4000 mg of acetaminophen should begiven per day (FROM ALL SOURCES)Start: 07-11-2024 End: 11-05-9728qzmt 1 dose by mouth once, then take 4000 mg by mouth once daily 650 mg, ORAL, ONCE, 1 dose, On Wed07/11/24 at 0900, No more than 4000 mg of acetaminophen should begiven per day (FROM ALL SOURCES)Start: 06-13-2024 End: 17-60-6156dkwc 1 dose by mouth once, then take 4000 mg by mouth once daily 650 mg, ORAL, ONCE, 1 dose, On Wed06/13/24 at 1000, No more than 4000 mg of acetaminophen should begiven per day (FROM ALL SOURCES)Start: 05-19-2024 End: 84-43-2113ygfk 1 dose by mouth once, then take [...] 5 mg oral tablet (2 sources)Opioid AgonistStart: 34-64-6986bgyx 1 tablet by mouth every six hours as neededhydroCODone-acetaminophen 5-325 MG tablet Take 1 tablet by mouth every 6 hours as needed. 02/26/2025 ActiveStart: 38-24-3943wjop 1 tablet by mouth every six hours as neededhydroCODone-acetaminophen 7.5-325 MG tablet Take 1 tablet by mouth every 6 hours as needed. 01/08/2025 ActiveALPRAZolam 0.25 mg oral tablet (20 sources)BenzodiazepineStart: 06-24-2023 End: 89-19-4068tjgs 1 tablet by mouth once dailyALPRAZolam 0.25 MG tablet Take 1 tablet by mouth daily. 04/28/2024 Activeamoxicillin 875 mg oral tablet (2 sources)Penicillin-class AntibacterialStart: 01-91-7873veqd 1 tablet by mouth every twelve hoursAmoxicillin [...] tablet (20 sources)gamma-Aminobutyric Acid-ergic AgonistStart: 02-09-2024 End: 89-88-8793bkxc 1 tablet by mouth at bedtimebaclofen (Lioresal) 5 MG tablet Indications: Lumbosacral radiculopathy at L5 , Degenerative disc disease, lumbar , Cervical radiculopathy at C5 TAKE 1 TABLET BY MOUTH IN THE MORNING, EVENING AND BEFORE BEDTIME 270 tablet 1 03/02/2024 02/28/2025 Discontinued (Therapy completed)cephalexin 500 mg oral capsule (14 sources)Cephalosporin AntibacterialStart: 02-27-2025 End: 40-56-9938qcfw 1 capsule by mouth three times dailycephALEXin 500 MG capsule Take 1 capsule by mouth 3 (three) times a day. 02/27/2025 ActiveStart: 06-15-2024 End: 33-83-0716diph 1 capsule by mouth in the morningcephalexin (Keflex) 500 MG capsule Indications: Cyst, breast, sebaceous, left Take 1 capsule (500 mg) by mouth in the morning and 1 capsule (500 mg) before bedtime. Do all this for 7 days. 14 jspwdyg6506/15/2024 06/22/2024 ActiveStart: 72-27-7077jjczrqzfrr (Keflex) 500 MG capsule Indications: Postoperative stitch abscess Take 1 tablet twice a day x 7 days 14 capsule 0 01/07/2023 ActiveKeflex Activecetirizine hydrochloride 10 mg oral tablet (4 sources)Histamine-1 Receptor Antagonisttake 1 tablet by mouth once daily Cetirizine 10 MG tablet Take 1 tablet by mouth daily. Active End: 86-31-9840Yyzadipnrt (ZYRTEC) 10 mg cap Take by mouth. 0 02/25/2022 Discontinued (Course of therapy completed)Comment on above:Take by mouth. Chlorhexidine (20 sources)Start: 39-18-6952Osmuenrvvdrgb Gluconate 4 % Solution Apply 1 Application topically daily as needed for Other. 07/25/2024 ActiveStart: 83-28-7170Eaknajzauuuke Gluconate (Hibiclens) 4 % solution Indications: Hidradenitis suppurativa Use every day in shower from the neck down to affected areas. 532 mL 11 07/25/2024 ActiveStart: 11-01-2023 End: 03-72-3263Upngtzzdxhfgy Gluconate (Hibiclens) 4 % solution Indications: Hidradenitis suppurativa Apply 1 Application topically Daily LATHER ONTO AFFECTED AREAS ON THE BODY AND RINSE FROM THE NECK DOWN 2 TIMES A WEEK AVOIDING THE FACE. 30 day supply 236 mL 11 03/17/2024 04/16/2024 ActiveStart: 07-15-2023 End: 85-97-8882tvzwpihiyowuz (Hibiclens) 4 % external liquid Indications: Hidradenitis suppurativa Lather onto affected areas on the body and rinse from the neck down, 2 times a week avoiding the face, 30 day supply 118 mL 11 07/15/2023 03/16/2024 Discontinuedclindamycin 10 mg/ml topical lotion (20 sources)Lincosamide AntibacterialStart: 13-80-0058rtdsprwlaem 1 % Lotion lotion Apply 1 Application topically daily. 07/25/2024 ActiveStart: 06-23-2022 End: 92-65-8742wzowyyidupf (Clindagel) 1 % gel Indications: Hidradenitis suppurativa APPLY TO AFFECTED AREA DAILY 75 mL 11 10/06/2023 06/06/2024 Discontinuedclobetasol propionate 0.5 mg/ml medicated shampoo (20 sources)CorticosteroidStart: 42-03-1376Qyixltjqiw Propionate 0.05 % Shampoo Apply 1 Application topically 3 times weekly. APPLY TO SCALP IN SHOWER 3 TO 4 TIMES A WEEK 07/25/2024 ActiveStart: 79-13-1809Wbvhswlwds 0.05 % shampoo Active 1 APPLIC TOPICAL As Directed October 20, 2023 12:00am Complies with drug therapy Start: 38-28-9262Hbwvlylfxb Active TOPICAL October 20, 2023 12:00amStart: 10-23-2022 End: 36-74-3156Tcitifsnra Propionate 0.05 % shampoo Indications: Other seborrheic dermatitis 1 application to the scalp in the shower topically 3-4 times a week 236 mL 11 07/25/2024 ActiveclonazePAM 0.5 mg oral tablet (20 sources)BenzodiazepineStart: 19-13-1738uaoy 1 tablet by mouth once daily KlonoPIN 0.5 MG tablet Take 1 tablet by mouth daily. 07/31/2024 Active clotrimazole 10 mg oral lozenge (11 sources)Azole AntifungalStart: 77-80-9268pavsuuwfzfsw (MYCELEX) 10 mg christel USE 1 CHRISTEL WHILE ON IMMUNOSUPPRESSIVE MEDICINE BY MOUTH/THROAT 3 TIMES A DAY 10/23/2024 ActiveStart: 85-53-1089rtnarcsdnnqr (MYCELEX) 10 mg christel Dissolve 1 Christel in the mouth in the morning and 1 Christel at noon and 1 Christel in the evening and 1 Christel before bedtime. 04/05/2024 ActiveCPAP/BIPAP/OTHER (20 sources)Start: 05-05-2022 End: 46-45-1644LBRM/BIPAP/OTHER Indications: JOSE RAFAEL (obstructive sleep apnea) Type .CPAPSettings into a note to see current settings/supplies/DME information. 1 Each 05/05/2022 09/19/2049 ActiveStart: 05-05-2022 End: 16-41-6778UXUR/BIPAP/OTHER Indications: JOSE RAFAEL (obstructive sleep apnea) Type .CPAPSettings into a note to see current settings/supplies/DME information. 1 Each 0 05/05/2022 09/19/2049 ActiveStart: 04-13-2022 End: 71-94-6200SSEY/BIPAP/OTHER Indications: JOSE RAFAEL (obstructive sleep apnea) Type .CPAPSettings into a note to see current settings/supplies/DME information. 1 Each 0 04/13/2022 04/26/2023 Discontinued (Duplicate Entry)Start: 04-13-2022 End: 28-14-2077SSUP/BIPAP/OTHER Indications: JOSE RAFAEL (obstructive sleep apnea) Type .CPAPSettings into a note to see current settings/supplies/DME information. 1 Each 0 04/13/2022 08/28/2049 ActiveComment on above:Type .CPAPSettings into a note to see current settings/supplies/DME information.diclofenac sodium 0.01 mg/mg topical gel (20 sources)Nonsteroidal Anti-inflammatory DrugStart: 76-68-5016Erxtgszjty sodium 1 % Gel gel Apply 2 g topically 4 times daily. 08/14/2024 ActiveStart: 53-08-9034uygvclmsnd sodium 1 % gel 02/01/2024 ActiveStart: 30-38-8547kzgmsiugpa sodium (VOLTAREN ARTHRITIS PAIN) 1 % gel Apply 2 g topically 4 (four) times a day as needed. 02/01/2024 JyvqyxldtfngocjvEQLSN-krscmh-bvyvekbaz (BMX 1:1:1) 1:1:1 liqd (20 sources)Start: 61-28-1920axww 5 mL by mouth every six hours as needed ykfqzwklhdTWOHN-vypgpt-wbjirozub (BMX 1:1:1) 1:1:1 liqd Take 5 mL by mouth every 6 hours as needed.500 mL 1 07/12/2024 Active0.5 ml dulaglutide 3 mg/ml auto-injector (20 sources)GLP-1 Receptor AgonistStart: 12-18-4733Muwqctzpv 1.5 MG/0.5ML Solution Auto-injector injection Inject 0.5 mL under the skin every 7 days. 0 01/23/2025 ActiveStart: 08-17-2024 End: 86-08-6686Bappfvvos 1.5 MG/0.5ML solution auto-injector INJECT SUBCUTANEOUSLY ONCE A WEEK DIRECTED 08/17/2024 02/28/2025 Discontinued (Therapy completed)Start: 22-83-6294jzuksd 0.75 mg by subcutaneous injection onceTRULICITY 0.75 mg/0.5 mL pen injector Inject 0.75 mg subcutaneously one time a week. Per PCP 07/29/2024 ActiveStart: 11-16-2022 End: 13-18-3848xgkvdq 1.5 mg by subcutaneous injection every weekdulaglutide (TRULICITY) 1.5 mg/0.5 mL pen injector Indications: Obesity, Class II, BMI 35- 39.9 , Prediabetes Inject 1.5 mg subcutaneously one time a week. 2 mL 0 11/16/2022 ActiveStart: 10-16-2022 End: 14-00-7067jeijgl 0.75 mg by subcutaneous injection every weekdulaglutide (TRULICITY) 0.75 mg/0.5 mL pen injector Indications: Obesity, Class III, BMI 40- 49.9 (morbid obesity) (HCC) , Pre-diabetes Inject 0.75 mg subcutaneously one time a week. 2 mL 0 10/16/2022ctiveStart: 09-07-2022 End: 42-30-2928eqwynq 0.75 mg by subcutaneous injection every weekdulaglutide [...] capsule (20 sources)Serotonin and Norepinephrine Reuptake InhibitorStart: 19-47-2711lurh 1 capsule by mouth once dailyDULoxetine [address] Particles capsule DR Take 1 capsule by mouth daily. 02/22/2025 ActiveStart: 55-37-8345jxrv 1 capsule by mouth once dailyDuloxetine 20 mg capsule,delayed release(DR/EC) Active 20 MG PO Daily December 12, 2024 12:00am Complies with drug therapyStart: 02-01-2024 End: 87-55-1218dytx 1 capsule by mouth once dailyDULoxetine (Cymbalta) [address] capsule Take 20 mg by mouth Daily 02/01/2024 03/16/2024 DiscontinuedStart: 10-29-2022 End: 41-43-6803ywet 1 capsule by mouth once dailyDULoxetine (CYMBALTA) 20 mg capsule Indications: Depression, recurrent (HCC) , Chronic pain syndrome Take 1 capsule by mouth once daily. 30 capsule 2 10/29/2022 04/26/2023 Discontinued (Course of therapy completed)Start: 03-09-2022 End: 82-20-5721ecvh 1 capsule by mouth once dailyDULoxetine (CYMBALTA) 20 mg capsule Take 1 capsule by mouth once daily. 30 capsule 2 03/09/2022 Active Comment on above:Take 1 capsule by mouth once daily.ergocalciferol 1.25 mg oral capsule (20 sources)Provitamin D2 CompoundStart: 45-68-9590Llulzobbhgxowo (Vitamin D2) 1,250 mcg (50,000 unit) capsule Active 29639 UNIT PO 3 Times a week November 13, 2024 11:23am Complies with drug therapyStart: 04-02-2024 End: 01-49-5519ngzpodrutcuzzp 50,000 unit capsule (VITAMIN D2, DRISDOL) Indications: Vitamin D deficiency Take 1cap by mouth twice a week x 10weeks, then once a week with food. 24 capsule 1 04/02/2024 07/09/2024 Discontinued Start: 10-20-2023 End: 90-71-4177omxd 1 capsule by mouth every weekErgocalciferol 1.25 MG (69046 UT) capsule Take 1 capsule by mouth once a week. 10/06/2024 ActiveStart: 10-31-2022 End: 53-74-7635jhbq 1 capsule by mouth every weekergocalciferol (DRISDOL) 1,250 mcg (50,000 unit) capsule Take 1 capsule (50,000 Units total) by mouth once a week. 10/20/2023 ActiveStart: 44-93-5873uzfosypsbphfkd 50,000 unit capsule (VITAMIN D2, DRISDOL) Indications: Vitamin D deficiency (take bymouth with food 3times a week, ONE CAPSULE ON Mondays, Fridays) FOR A TOTAL OF 8 WEEKS, then once aweek thereafter. 28 capsule 1 05/18/2022 ActiveStart: 10-26-2021 End: 40-44-4001jtramvxgwcguzx 50,000 unit capsule (VITAMIN D2, DRISDOL) Indications: Vitamin D deficiency (take bymouth with food 2times a week, ONE CAPSULE ON MON, Fridays) FOR A TOTAL OF 8 WEEKS, then once aweek thereafter. 20 capsule 1 03/05/2022 ActiveStart: 63-88-2680sgunafyzaczgwu 50,000 unit capsule (VITAMIN D2, DRISDOL) Indications: Vitamin D deficiency (take bymouth with food 3times a week, ONE CAPSULE ON Mondays, Wed, Fridays) FOR A TOTAL OF 8 WEEKS. 24 capsule 0 03/06/2021 Activetake 1 capsule by mouth every week ergocalciferol (Vitamin D2) 1.25 MG (64490 UT) capsule Take 50,000 Units by mouth [...] / Ferrous fumarate / Norethindrone (20 sources)EstrogenStart: 67-43-5415bvcr 1 tablet by mouth once dailyLo Loestrin Fe 1 MG-10 MCG / 10 MCG tablet Take 1 tablet by mouth daily. 11/17/2024 ActiveStart: 53-56-0226kmzy 1 tablet by mouth once dailyLO LOESTRIN FE 1 mg-10 mcg (24)/10 mcg (2) Take 1 tablet by mouth once daily. 11/17/2024 ActiveStart: 03-23-2024 End: 53-77-5290qzuf 1 tablet by mouth once dailynorethindrone-ethinyl estradiol- iron (Lo Loestrin Fe) 1 MG-10 MCG / 10 MCG tablet Indications: Menorrhagia with regular cycle Take 1 tablet by mouth Daily Take 1 tablet by mouth daily 28 tablet 11 03/23/2024 02/28/2025 Discontinued (Therapy completed)Start: 03-23-2024 End: 54-92-1891rqja 1 tablet by mouth once dailynorethindrone-ethinyl estradiol- iron (Lo Loestrin Fe) 1 MG-10 MCG / 10 MCG tablet Indications: Menorrhagia with regular cycle Take 1 tablet by mouth Daily Take 1 tablet by mouth daily 28 tablet 11 03/23/2024 02/22/2025 Activefidaxomicin 200 mg oral tablet (20 sources)Macrolide AntibacterialStart: 40-87-6376dfic 1 tablet by mouth twice dailyfidaxomicin 200 MG tablet Take 1 tablet by mouth 2 times daily. 02/28/2025 ActiveStart: 06-15-2024 End: 25-41-7518tfsy 1 tablet by mouth once in the morningfidaxomicin (Dificid) 200 MG tablet Indications: H/O Clostridium difficile infection Take 1 tablet ( 200 mg) by mouth in the morning and 1 tablet (200 mg) before bedtime. Do all this for 10 days. 20 tablet 06/15/2024 06/25/2024 ActiveStart: 10-20-2023 End: 40-10-1572xmck 1 tablet by mouth every other dayFidaxomicin (Dificid) 200 mg tablet Discontinued 200 MG PO .every other day October 20, 2023 12:00am December 16, 2023 2:11pmStart: 10-20-2023 End: 47-70-2279xbrb 1 tablet by mouth every twelve hoursFidaxomicin (Dificid) 200 mg tablet Discontinued 200 MG PO Every 12 hours 20 10 October 20, 2023 12: 00am December 16, 2023 2:11pmfludrocortisone acetate 0.1 mg oral tablet (3 sources)Start: 06-01-2023 End: 51-23-1412ldxu 1 tablet by mouth at bedtimefludrocortisone (Florinef) 0.1 MG tablet Indications: Autonomic dysfunction Take 1 tablet (0.1 mg) by mouth at bedtime 30 tablet 11 06/01/2023 05/31/2024 Activefluocinonide 0.5 mg/ml topical solution (20 sources)CorticosteroidStart: 07-15-2023 End: 21-37-8698mzuskeblhqjr 0.05 % Solution solution Apply 1 Application topically 2 times daily. 07/25/2024 ActiveStart: 12-58-4363Lpjmkctllbtp 0.05 % solution Active 1 APPLIC TOPICAL Daily as needed for rash October 20, 2023 12:00am Complies with drug therapyfluticasone propionate 0.05 mg/actuat metered dose nasal spray (20 sources)CorticosteroidStart: 58-65-4832jczl 2 spray(s) nasal route in the morningfluticasone [...] acid 1 mg oral tablet (20 sources)Start: 08-19-5600mxaf 1 tablet by mouth once dailyFolic Acid 1 mg tablet Active 1 MG PO Daily December 12, 2024 12:00am Complies with drug therapy Start: 61-09-1725Kcmij Acid 1 mg tablet Active PO Daily December 12, 2024 12:00am Complies with drug therapyStart: 03-18-2022 End: 77-65-5533iwos 1 tablet by mouth once dailyFolic Acid 1 mg tablet Active 1 MG PO Daily December 12, 2024 12:00am Complies with drug therapyComment on above: Take 1 tablet by mouth once daily.TAKE 1 TABLET BY MOUTH EVERY DAY hydroxychloroquine sulfate 200 mg oral tablet (20 sources)Antimalarial, Antirheumatic AgentStart: 42-51-1381rhmlEMOzjjakkRJSDC (PLAQUENIL) 200 mg tablet Indications: CHRISTIAN positive , Other systemic lupus erythematosus with other organ involvement (HCC) TAKE 1 TAB TWICE A DAY WITH FOOD *SUNSCREEN WHILE OUTDOORS/OPHTHAMOLOGY EVERY 6-12 MONTHS WHILE ON* 60 tablet 11 01/23/2025 ActiveStart: 97-79-3818ngkn 2 tablets by mouth once daily Hydroxychloroquine 200 mg tablet Active 400 MG PO Daily October 20, 2023 12:00am Complies with drug therapyStart: 41-57-0588wacn 400 mg by mouth once daily Hydroxychloroquine Active 400 MG PO Daily October 20, 2023 12:00amStart: 10-19-2023 End: 48-09-5275blhbHRQvccnjiTFYAC (PLAQUENIL) 200 mg tablet Indications: CHRISTIAN positive [...] 180 tablet 3 10/30/2022 ActiveStart: 05-05-2021 End: 20-53-1531tatmKFGiukbcnNBABS (PLAQUENIL) 200 mg tablet Indications: CHRISTIAN positive [...] at the same time. 0 Active End: 90-30-0367tkgsljsddscooqjtjg sulfate (HYDROXYCHLOROQUINE ORAL) Hydroxychloroquine Sulfate Active 0 03/12/2022iscontinued (Duplicate Entry) Hydroxychloroquine Sulfate ActiveComment on above:Take one tab by mouth twice a day with food. Sunscreen when outdoors. See ophthalmology every 6-12months on med.Hydroxychloroquine Sulfate ActiveTAKE 1 TAB TWICE A DAY WITH FOOD *SUNSCREEN WHILE OUTDOORS/OPHTHAMOLOGY EVERY 6-12 MONTHS WHILE ON*hyoscyamine sulfate 0.125 mg oral tablet (2 sources)Start: 84-88-0312vdfr 1 tablet by mouth every six hours as needed for painhyoscyamine (Anaspaz,Levsin) 0.125 MG tablet TAKE 1 TABLET BY MOUTH EVERY 6 HOURS NEEDED FOR ABDOMINAL PAIN 0 06/27/2023 Activeibuprofen 400 mg oral tablet (20 sources)Nonsteroidal Anti-inflammatory DrugStart: 92-83-8501Qmxqfsfps 400 mg tablet Active 400 MG PO [...] mouth. Immunoglobulin G (20 sources)Human Immunoglobulin GStart: 92-25-2582Wjmty: 99-70-1388ccweqxhvr Active IV EVERY 4 WEEKS December 12, 2024 10:58am Complies with drug therapyStart: 12-12-2024 End: 24-75-6168cihunulfc Discontinued IV December 12, 2024 12:00am December 12, 2024 10:58amimmune globulin, human, (Gammagard) infusion Infuse into a venous catheter Activeimmune globulin, human, (Gammagard) infusion Infuse into a venous catheter 1 time. Activemagnesium citrate 58.2 mg/ml oral solution (2 sources)Start: 04-76-3531TRX Magnesium Citrate oral solution TAKE HALF OF THE BOTTLE WITH 8 OZ OF WATER, TAKE THE OTHER HALFAFTER 1 HOUR WITH 8 OZ OF WATER 0 06/27/2023 Activemethocarbamol 750 mg oral tablet (1 source)Muscle RelaxantStart: 50-38-2001xugn 1 tablet by mouth twice daily Methocarbamol 750 MG tablet Take 1 tablet by mouth 2 times daily. 01/02/2025 Activemetoprolol tartrate 50 mg oral tablet (20 sources)beta-Adrenergic BlockerStart: 07-26-2024 End: 21-83-1759mkjx 1 tablet by mouth four times dailymetoprolol tartrate (Lopressor) 50 mg tablet Indications: Paroxysmal supraventricular tachycardia ([facility]-HCC) , Essential hypertension Take 1 tablet by mouth 4 times a day. 360 tablet 3 07/26/2024 07/26/2025 ActiveStart: 13-57-2956ipzj 4 tablets by mouth once dailyMetoprolol Tartrate 50 mg tablet Active 200 MG PO Daily October 20, 2023 12:00am Complies with drug therapyStart: 04-45-4392kqcp 200 mg by mouth once dailyMetoprolol Tartrate Active 200 MG PO Daily October 20, 2023 12:00amStart: 61-84-8853pinj 50 mg by mouth once dailyMetoprolol Tartrate Active 50 MG PO Daily October 20, 2023 12:00amStart: 49-07-0544lmwe 1 tablet by mouth twice daily metoprolol tartrate, short acting, (LOPRESSOR) 50 mg tablet Take 50 mg by mouth twice daily. 05/25/2022 ActiveStart: 05-25-2022 End: 99-79-6888dhtr 2 tablets by mouth in the morningmetoprolol tartrate (Lopressor) 50 MG tablet Take 100 mg by mouth in the morning and 100 mg before b edtime. 04/23/2023 ActiveStart: 07-29-2020 End: 40-30-6134ywli 1 tablet by mouth twice dailymetoprolol tartrate, short acting, (LOPRESSOR) 25 mg tablet Take 25 mg by mouth twice daily. 0 07/29/2020 ActiveComment on above:Take 25 mg by mouth twice daily.Take 50 mg by mouth twice daily.montelukast 10 mg oral tablet (5 sources)Leukotriene Receptor AntagonistStart: 05-25-2023 End: 21-13-6232weut 1 tablet by mouth once daily at bedtimemontelukast (Singulair) 10 mg tablet Take 1 tablet (10 mg) by mouth once daily at bedtime. 0 05/25/2023 05/24/2024 ActiveNaltrexone (15 sources)Opioid AntagonistStart: 01-19-2022 End: 78-20-6098hwak 1 capsule by mouth once dailynaltrexone capsule 1 mg TAKE ONE CAPSULE BY MOUTH DAILY 0 01/19/2022 07/25/2022 DiscontinuedStart: 01-19-2022 take 1 capsule by mouth once dailynaltrexone capsule 1 mg TAKE ONE CAPSULE BY MOUTH DAILY 0 01/19/2022 ActiveComment on above:TAKE ONE CAPSULE BY MOUTH DAILY nitroglycerin 0.4 mg sublingual tablet (20 sources)Nitrate VasodilatorStart: 10-07-2020 End: 52-88-9076tuisiygzidcth sublingual (NITROQUICK) 0.4 mg SL tablet Dissolve 0.4 mg under the tongue. 0 10/07/2020 07/25/2022 DiscontinuedComment on above: Dissolve 0.4 mg under the tongue.nystatin 960370 unt/ml oral suspension (20 sources)Polyene AntifungalStart: 73-00-8574gdoc 4 mL by mouth every six hoursNystatin 073835 UNIT/ML oral suspension Swish and spit 4 mL Every 6 hours. 11/06/2024 ActiveStart: 78-51-3157xmof 4 mL by mouth four times dailynystatin (MYCOSTATIN) 100,000 unit/mL suspension TAKE 4 ML BY MOUTH / THROAT 4 TIMES A DAY FOR 7 DAYS 11/06/2024 ActiveStart: 07-31-2024 End: 52-33-3540rcly 1 mL by mouth once dailyNystatin 100,000 unit/mL suspension Discontinued 1 ML PO Daily July 31, 2024 12:00am December 12, 2024 10:49am swish and swallowStart: 07-25-2024 End: 63-22-5475prqhxnwa (Mycostatin) 468234 UNIT/ML suspension Indications: Rash and other nonspecific skin eruption Take 4 mL (400,000 Units) by mouth in the morning and 4 mL (400,000 Units) at noon and 4 mL (400,000 Units) in the evening and 4 mL (400,000 Units) before bedtime. Do all this for 14 days. 224 mL 08/08/2024 ActiveStart: 01-27-2024 End: 91-20-2017welapkyi (MYCOSTATIN) 100,000 unit/mL suspension Take 5 mL by mouth four times daily for 7 days. SWISH AND SWALLOW 1 TEASPOON(S) (5ML) 4 TIMES PER DAY. 140 mL 01/27/2024 02/03/2024 ActiveStart: 19-21-7230oqktddwm (Mycostatin) cream Indications: Candidiasis of skin Apply to left armpit BID until clear 15 g 01/15/2023 Activeondansetron 4 mg disintegrating oral tablet (2 sources)Serotonin-3 Receptor AntagonistStart: 27-83-1530jbgw 1 tablet by mouth every six hours as needed for nausea and vomitingondansetron ODT (Zofran- ODT) 4 MG disintegrating tablet DISSOLVE 1 TABLET IN MOUTH EVERY 6 HOURS NEEDED FOR NAUSEA AND VOMITING 0 06/27/2023 Activepantoprazole 20 mg delayed release oral tablet (20 sources)Proton Pump InhibitorStart: 04-09-7495irhq 2 tablets by mouth twice dailyPantoprazole 20 mg tablet,delayed release (DR/EC) Active 40 MG PO Twice daily November 13, 2024 11:24am Complies with drug therapyStart: 89-03-9473alsp 2 tablets by mouth once dailyPantoprazole 20 mg tablet,delayed release (DR/EC) Active 40 MG PO Daily November 13, 2024 11:24am Complies with drug therapyStart: 34-19-4579jzmn 1 tablet by mouth at breakfastpantoprazole DR (PROTONIX) 40 mg tablet TAKE 1 TABLET BY MOUTH 1/2 TO 1 HOUR BEFORE MORNING MEAL 10/21/2024 ActiveStart: 07-19-2024 End: 90-00-5725verf 1 tablet by mouth once dailyPantoprazole 20 mg tablet,delayed release (DR/EC) Discontinued 20 MG PO Daily July 19, 2024 1:00am November 13, 2024 11:24amStart: 01-26-2024 End: 36-66-5738ozqt 1 tablet by mouth once dailypantoprazole (ProtoNix) 40 MG EC tablet Take 40 mg by mouth Daily 01/26/2024 03/16/2024 DiscontinuedStart: 09-22-2023 End: 80-12-6754pqdp 1 tablet by mouth once dailyPantoprazole 40 mg tablet,delayed release (DR/EC) Discontinued 40 MG PO Daily 30 22 04September 22, 2023 12:00am October 20, 2023 1:07pm Take 1 tablet orally once a day.phentermine hydrochloride 37.5 mg oral tablet (20 sources)Sympathomimetic Amine AnorecticStart: 04-26-2023 End: 12-65-8896qxmg 1 tablet by mouth before mealtimephentermine (Adipex-P) 37.5 MG tablet Take 37.5 mg by mouth in the morning. Take before meals. 05/26/2023 ActiveComment on above:Take 1 tablet by mouth daily before breakfast for 30 days.Take 1 tablet by mouth daily before breakfast for 90 days.pilocarpine hydrochloride 5 mg oral tablet (13 sources)Cholinergic Receptor AgonistStart: 45-09-5252eldf 1 tablet by mouth three times dailypilocarpine 5 MG tablet Take 1 tablet by mouth 3 (three) times a day. 2024 ActiveStart: 07-12-2024 End: 60-58-0419psjb 1 tablet by mouth three times dailypilocarpine (SALAGEN) 5 mg tablet TAKE 1 TABLET BY MOUTH THREE TIMES A DAY 135 tablet 1 08/07/2024 0 09/06/2024 Activepravastatin sodium 20 mg oral tablet (20 sources)HMG-CoA Reductase InhibitorStart: 59-86-4228fmba 1 tablet by mouth once dailyPravastatin 20 MG tablet Take 1 tablet by mouth daily. 05/03/2024 ActiveStart: 01-26-2024 End: 37-23-5343fkcg 1 tablet by mouth once dailypravastatin (Pravachol) 20 MG tablet Take 20 mg by mouth Daily 01/26/2024 03/16/2024 DiscontinuedStart: 10-20-2023 End: 31-62-2858qeom 1 tablet by mouth once dailyPravastatin 20 mg tablet Discontinued 20 MG PO Daily October 20, 2023 12:00am October 20, 2023 1:08pmStart: 41-48-8084lqfn 1 tablet by mouth once dailypravastatin (Pravachol) 20 MG tablet TAKE 1 TABLET BY MOUTH EVERY DAY FOR 30 DAYS 0 06/24/2023 ActivepredniSONE 10 mg oral tablet (20 sources)Start: 70-88-1897uzkv 1 tablet by mouth once daily at mealtime predniSONE 10 MG tablet Take 1 tablet by mouth As directed. Take 40mg daily x 3, decrease by 5mg every 3days until taking 10mg daily with food thereafter (no oral nsaids) 01/23/2025 ActiveStart: 80-90-1301fchcuvAJKH (DELTASONE) 10 mg tablet Indications: Other systemic lupus erythematosus with other organ involvement (HCC) Take 40mg daily x 3, decrease by 5mg every 3days until taking 10mg daily with food thereafter (no oral nsaids) 120 tablet 1 01/23/2025 Active Start: 06-22-2024 End: 59-63-9275zwzmxeZIRI (DELTASONE) 10 mg tablet Indications: Other systemic lupus erythematosus with other organ involvement (HCC) Take 40mg daily x 3, decrease by 5mg every 3days until taking 10mg daily with food thereafter (no oral nsaids) 120 tablet 1 10/07/2024 ActiveStart: 01-12-2024 End: 06-59-7676ikmlzqWIVG (DELTASONE) 10 mg tablet Indications: Other systemic [...] 12:00am Complies with drug therapyStart: 05-12-2023 End: 04-15-1074gywb 1 tablet by mouth once dailyPrednisone 10 mg tablet Active 10 MG PO Daily October 20, 2023 12:00am Complies with drug therapyStart: 05-12-2023 End: 71-74-0450zdamtsQZJV (DELTASONE) 10 mg tablet Indications: Other systemic lupus erythematosus with other organ involvement (HCC) Take 40mg daily x 5days, then decrease 5mg every 5days until 10mg daily thereafter 120 tablet 1 05/12/2023 10/05/2023 DiscontinuedStart: 69-85-8794mzhlypJRJO (DELTASONE) 10 mg tablet Indications: Other systemic lupus erythematosus with other organ involvement (HCC) Take 40mg daily x 5days, then decrease 5mg every 5days until 10mg daily thereafter 120 tablet 1 08/17/2022 ActiveStart: 06-01-2022 End: 04-56-9459uksp 1 tablet by mouth once dailypredniSONE (DELTASONE) 10 mg tablet Take 10 mg by mouth once daily. 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 08/16/2023 Activethiamine 100 mg oral tablet (20 sources)Start: 87-64-7636jizg 1 tablet by mouth once daily as neededThiamine Hcl (Vitamin B1) 100 mg tablet Active MG PO Daily as needed December 12, 2024 12:00am Complies with drug therapyStart: 06-01-2023 End: 51-98-9662fuvh 1 tablet by mouth once dailyThiamine 100 MG tablet Take 1 tablet by mouth daily. 10/27/2024 ActiveTirzepatide (Mounjaro) 2.5 MG/0.5ML Solution Auto-injector (1 source)Start: 72-51-9169Zzueuukihsf (Mounjaro) 2.5 MG/0.5ML Solution Auto- injector Inject 2.5 mg under the skin every 7 days. 02/26/2025 Activetopiramate 25 mg oral tablet (20 sources)Start: 04-26-2023 End: 04-99-4768aooc 1 tablet by mouth twice dailytopiramate (TOPAMAX) 25 mg tablet Indications: Other chronic pain Take 1 tablet by mouth two times a day. 180 tablet 05/26/2023 03/18/2024 Discontinued (Course of therapy completed) Comment on above:Take 1 tablet by mouth two times a day.tretinoin 0.25 mg/ml topical cream (20 sources)RetinoidStart: 88-84-9829gqmviwnbe (Retin-A) 0.025 % cream Indications: Acne vulgaris Apply to face, once daily at evening/night time, 30 day supply 45 g 11 11/23/2024 ActiveStart: 13-22-1173oekaswjtm (Retin-A) 0.05 % cream Indications: Striae atrophic [...] Nucleoside Analog DNA Polymerase InhibitorStart: 10-03-2021 End: 50-51-2067fmej 1 tablet by mouth once dailyacyclovir (ZOVIRAX) 400 mg tablet Take 400 mg by mouth once daily. 0 10/03/2021 04/26/2023 Discontinued (Discontinued by Patient)Comment on above:Take 400 mg by mouth once daily. amLODIPine 5 mg oral tablet (8 sources)Dihydropyridine Calcium Channel BlockerStart: 02-03-2024 End: 57-98-1837nabh 1 tablet by mouth once dailyamLODIPine (Norvasc) 5 MG tablet Take 5 mg by mouth Daily 02/03/2024 03/16/2024 DiscontinuedStart: 10-07-2020 take 1 tablet by mouth once dailyamLODIPine (NORVASC) 2.5 MG tablet Take 1 tablet by mouth daily 30 tablet 3 10/07/2020 ActiveazaTHIOprine 50 mg oral tablet (20 sources)Purine AntimetaboliteStart: 05-24-2023 End: 63-62-6088gksv 1 tablet by mouth three times dailyAzathioprine 50 mg tablet Discontinued 50 MG PO Three times daily October 20, 2023 12:00am October 11:22amStart: 05-24-2023 End: 98-12-8575bdya 3 tablets by mouth once dailyazaTHIOprine (Imuran) 50 MG tablet Take 150 mg by mouth Daily 05/24/2023 02/28/2025 Discontinued (Therapy completed)Start: 61-35-3060tyhd 50 mg by mouth twice dailyAzathioprine Active 50 MG PO Twice daily October 20, 2023 12:00amStart: 20-09-6622zxlc 3 tablets by mouth three times dailyazaTHIOprine (Imuran) 50 mg tablet Take 3 tablets (150 mg) by mouth 3 times a day. 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 HOLD IF ON ANTIBIOTICS OR ILL. 90 tablet 3 02/16/2023 ActiveStart: 08-19-2022 End: 99-70-2639amcn 2 tablets by mouth once daily at mealtimeazaTHIOprine (IMURAN) 50 mg tablet Indications: Other systemic lupus erythematosus with other organinvolvement (HCC) , Encounter for group home current use of azathioprine Take 2tab daily by mouth with food. Hold if on antibiotics or ill. 60 tablet 3 08/19/2022 11/24/2022 DiscontinuedStart: 06-15-2022 End: 73-28-8390vleg 1 tablet by mouth once daily at [...] (20 sources)B Lymphocyte Stimulator-specific InhibitorStart: 11-13-2024 End: 27-56-6414aviaqjfvy (Benlysta) Discontinued IV every month November 13, 2024 12:00am March 13, 2025 9:07amStart: 96-01-8571uvbrajbiw (Benlysta) Active IV every month November 13, 2024 12:00am Complies with drug therapyStart: 11-13-2024 Start: 13-72-7522Vhkjkvrc 200 MG/ML Solution Auto-injector Inject 200 mg under the skin every 7 days. 09/18/2024 ActiveStart: 02-04-2023 End: 18-32-9793iasyql 200 mg by subcutaneous injection every weekBelimumab [...] 10 mg oral tablet (20 sources) End: 41-62-1315Aezohi 10 mg tab 2 0 04/26/2023 Discontinued (Discontinued by Patient)Comment on above:2dexamethasone 2 mg oral tablet (9 sources)CorticosteroidStart: 01-20-2024 End: 15-46-2527cwdMTZLGflkzg (Decadron) 2 MG tablet Indications: Lumbosacral radiculopathy at L5 2mg 3 pills po X3days,2 pills po daily X3 days , then 1 pill po daily X3 days then stop 9 days 18 pills 18 tablet 1 01/20/2024 03/16/2024 Discontinueddicyclomine hydrochloride 10 mg oral capsule (20 sources)AnticholinergicStart: 01-25-2024 End: 96-06-6498pyaf 1 capsule by mouth in the morning, then take 1 capsule by mouth in the evening, then take 1 capsule by mouth at bedtimedicyclomine (Bentyl) 10 MG capsule Take 10 mg by mouth in the morning and 10 mg in the evening and 10 mg before bedtime. 01/25/2024 03/16/2024 DiscontinuedStart: 09-22-2023 End: 84-71-8568sxuy 1 capsule by mouth twice daily as needed for painDicyclomine 10 mg capsule Discontinued 10 MG PO Twice daily as needed for abdominal pain 60 30 5 September 22, 2023 12:00am October 20, 2023 1:07pm Take 1 capsule orally twice a day prndiphenhydrAMINE (15 sources)Histamine-1 Receptor AntagonistStart: 01-24-2025 End: 09-83-838752 mg, INTRAVENOUS, ONCE, 1 dose, On Wed01/24/25 at 0930Start: 01-11-2025 End: 40-98-5612rbff 1 dose by mouth once25 mg, ORAL, ONCE, 1 dose, On Wed01/11/25 at 1430Start: 12-14-2024 End: 89-77-1089fxqq 1 dose by mouth once25 mg, ORAL, ONCE, 1 dose, On Wed12/14/24 at 1430Start: 11-29-2024 End: 18-68-793496 mg, INTRAVENOUS, ONCE, 1 dose, On Wed11/29/24 at 1000Start: 11-16-2024 End: 07-54-4193viso 1 dose by mouth once25 mg, ORAL, ONCE, 1 dose, On Wed11/16/24 at 1400Start: 10-31-2024 End: 45-79-218545 mg, INTRAVENOUS, ONCE, 1 dose, On Wed10/31/24 at 1000Start: 10-19-2024 End: 66-28-8585vrim 1 dose by mouth once25 mg, ORAL, ONCE, 1 dose, On Wed10/19/24 at 1430Start: 2024 End: 40-57-2137rpnb 1 dose by mouth once25 mg, ORAL, ONCE, 1 dose, On Wed10/04/24 at 1430Start: 10-02-2024 End: 37-93-253558 mg, INTRAVENOUS, ONCE, 1 dose, On Wed10/02/24 at 0900Start: 09-18-2024 End: 64-08-5012jlqm 1 dose by mouth once25 mg, ORAL, ONCE, 1 dose, On Wed09/18/24 at 1300Start: 09-06-2024 End: 92-40-845086 mg, INTRAVENOUS, ONCE, 1 dose, On Wed09/06/24 at 0930Start: 08-08-2024 End: 80-03-619616 mg, INTRAVENOUS, ONCE, 1 dose, On Wed08/08/24 at 0930Start: 07-11-2024 End: 66-56-638486 mg, INTRAVENOUS, ONCE, 1 dose, On Wed07/11/24 at 0900Start: 06-13-2024 End: 28-50-019589 mg, INTRAVENOUS, ONCE, 1 dose, On Wed06/13/24 at 1000Start: 05-19-2024 End: 42-00-518384 mg, INTRAVENOUS, ONCE, 1 dose, On Wed05/19/24 at 1000 famotidine 20 mg oral tablet (19 sources)Histamine-2 Receptor AntagonistStart: 04-10-2024 End: 41-81-2905bhgu 1 tablet by mouth at bedtimefamotidine (Pepcid) 20 MG tablet Indications: LPRD (laryngopharyngeal reflux disease) Take 1 tablet(20 mg) by mouth at bedtime 90 tablet 04/10/2024 09/04/2024 Discontinued (Therapy completed)Start: 07-21-2020 End: 27-57-7207jmvr 1 tablet by mouth once daily at [...] mg/mg topical ointment (20 sources)Start: 11-22-2023 End: 68-05-5484Kapzsjbgbc 0.1 % ointment Discontinued 1 APPLIC TOPICAL Three times daily 15 10 0 November 22, 2023 12:00am December 16, 2023 2:12pmhydrocortisone 100 mg injection (9 sources)CorticosteroidStart: 01-24-2025 End: 04-84-153801 mg, INTRAVENOUS, ONCE, 1 dose, On Wed01/24/25 at 0930Start: 11-29-2024 End: 81-37-054756 mg, INTRAVENOUS, ONCE, 1 dose, On Wed11/29/24 at 1000Start: 10-31-2024 End: 69-03-139414 mg, INTRAVENOUS, ONCE, 1 dose, On Wed10/31/24 at 1000Start: 10-02-2024 End: 27-13-584053 mg, INTRAVENOUS, ONCE, 1 dose, On Wed10/02/24 at 0900Start: 09-06-2024 End: 39-31-286338 mg, INTRAVENOUS, ONCE, 1 dose, On Wed09/06/24 at 0930Start: 08-08-2024 End: 53-37-713807 mg, INTRAVENOUS, ONCE, 1 dose, On Wed08/08/24 at 0930Start: 07-11-2024 End: 82-25-217144 mg, INTRAVENOUS, ONCE, 1 dose, On Wed07/11/24 at 0900Start: 06-13-2024 End: 88-09-909182 mg, INTRAVENOUS, ONCE, 1 dose, On Wed06/13/24 [...] oral capsule (3 sources)Azole AntifungalStart: 04-03-2024 End: 30-82-1203qhdr 1 capsule by mouth once dailyitraconazole (Sporanox) 100 MG capsule Indications: Oral thrush Take 1 capsule (100 mg) by mouth Daily for 5 days 5 capsule 04/03/2024 04/08/2024 Expiredomeprazole 40 mg delayed release oral capsule (20 sources)Proton Pump InhibitorStart: 03-16-2024 End: 28-38-7887momn 1 capsule by mouth once dailyOmeprazole 40 mg capsule,delayed release(DR/EC) Discontinued 40 MG PO Daily 30 30 3 March 16, 2024 12:00am July 19, 2024 10:52amStart: 08-09-2020 End: 63-33-3367yvbf 1 capsule by mouth twice dailyomeprazole (PRILOSEC) [...] mg oral capsule (20 sources)Start: 12-15-2023 End: 97-16-9010fyuz 1 capsule by mouth in the morning, then take 1 capsule by mouth in the evening, then take 1 capsule by mouth at bedtimepregabalin (Lyrica) 100 MG capsule Indications: Lumbosacral radiculopathy Take 1 capsule (100 mg) by mouth in the morning and 1 capsule (100 mg) in the evening and 1 capsule (100 mg) before bedtime. 90 capsule 2 12/15/2023 03/16/2024 DiscontinuedStart: 29-30-5584fged 3 capsules by mouth once daily as needed for painPregabalin 75 mg capsule Active 225 MG PO Daily as needed for nerve pain October 20, 2023 12:00am Complies with drug therapyStart: 66-32-8822oblh 225 mg by mouth once daily Pregabalin Active 225 MG PO Daily October 20, 2023 12:00amStart: 90-12-4292oldu 1 capsule by mouth three times dailypregabalin (Lyrica) 100 MG capsule Indications: Lumbosacral radiculopathy TAKE 1 CAPSULE BY MOUTH THREE TIMES A DAY for 30 90 capsule 2 07/06/2023 ActiveStart: 10-13-2021 End: 19-12-8958ycoj 1 capsule by mouth three times dailypregabalin [...] FUMARATE/FA ( VITAMIN ORAL) (2 sources) End: 68-00-7676hlnf 1 tablet by mouth once dailyPRENATAL VIT/IRON [...] tablet (9 sources)Factor Xa InhibitorStart: 12-06-2023 End: 28-86-9556pydi 1 tablet by mouth at mealtimeXarelto 15 MG tablet Take 15 mg by mouth in the evening. Take with meals 12/06/2023 03/16/2024 Discontinued simvastatin 20 mg oral tablet (20 sources)HMG-CoA Reductase InhibitorStart: 03-10-2022 End: 83-81-3012oawlqlrfxaq (ZOCOR) 20 mg tabletterbinafine 250 mg oral tablet (3 sources)Allylamine AntifungalStart: 04-02-2024 End: 41-50-0120htkp 1 tablet by mouth once dailyterbinafine (LamISIL) 250 MG tablet Indications: Oral thrush Take 1 tablet (250 mg) by mouth Daily for 5 days 5 tablet 04/02/2024 04/03/2024 Discontinuedtriamcinolone acetonide 10 mg/ml injectable suspension (20 sources)CorticosteroidStart: 02-14-2025 End: 73-60-0487fajqbnazepzmc acetonide (Kenalog) injection 2.5 mgStart: 02-14-2025 End: .5 mg, Intra-lesional, Once, On Wed02/14/25 at 1545, For 1 dose Start: 11-23-2024 End: 81-05-4932weldzphjvrehu 10 MG/ML injection 0.25 mL by Intralesional route once. 11/23/2024 ActiveStart: 42-02-7440nxbmjouswnmqa acetonide (Kenalog) injection 2.5 mgStart: 92-81-0576Nagtusdfhvguh Acetonide 0.025 % lotion 1 application 06/23/2022 Activetriamcinolone acetonide (KENALOG) 0.025 % lotion Apply 1 Application topically as needed. Activevitamin b12 1 mg/ml injectable solution (17 sources)Vitamin U55Cfmwk: 11-29-2024 End: 68-96-9306vuumgd 1 dose by intramuscular injection once1,000 mcg, INTRAMUSCULAR, ONCE, 1 dose, On Wed11/29/24 at 1000Start: 10-31-2024 End: 39-57-8965dyyijg 1 dose by intramuscular injection once1,000 mcg, INTRAMUSCULAR, ONCE, 1 dose, On Wed10/31/24 at 1000Start: 10-02-2024 End: 68-77-6588ywvkha 1 dose by intramuscular injection once1,000 mcg, INTRAMUSCULAR, ONCE, 1 dose, On Wed10/02/24 at 0900Start: 09-06-2024 End: 80-35-4524mmztkl 1 dose by intramuscular injection once1,000 mcg, INTRAMUSCULAR, ONCE, 1 dose, On Wed09/06/24 at 1000Start: 08-08-2024 End: 13-50-5983yybvvz 1 dose by intramuscular injection once1,000 mcg, INTRAMUSCULAR, ONCE, 1 dose, On Wed08/08/24 at 0930Start: 07-11-2024 End: 76-99-5805vgntkw 1 dose by intramuscular injection once1,000 mcg, INTRAMUSCULAR, ONCE, 1 dose, On Wed07/11/24 at 0900Start: 06-13-2024 End: 19-79-8204grfthu 1 dose by intramuscular injection once1,000 mcg, INTRAMUSCULAR, ONCE, 1 dose, On Wed06/13/24 at 1000Start: 04-26-2024 End: 29-78-9334wstpen 1 dose by intramuscular injection once1,000 mcg, INTRAMUSCULAR, ONCE, 1 dose, On Wed04/26/24 at 0930Start: 03-23-2024 End: 08-47-8084mgjzbp 1 dose by intramuscular injection once1,000 mcg, INTRAMUSCULAR, ONCE, 1 dose, On Wed03/23/24 at 1030Start: 02-21-2024 End: 06-17-3327jrvbud 1 dose by intramuscular injection once1,000 mcg, INTRAMUSCULAR, ONCE, 1 dose, On Wed02/21/24 at 1100Start: 01-25-2024 End: 17-55-1335iqmghe 1 dose by intramuscular injection once1,000 mcg, INTRAMUSCULAR, ONCE, 1 dose, On Wed01/25/24 at 1130Start: 22-13-4330mbzdxz 1 mL by subcutaneous injection every 30 dayscyanocobalamin (VITAMIN B-12) 1,000 mcg/mL injection Inject 1 mL (1,000 mcg total) under the skin every 30 (thirty) days. 12/28/2023 ActiveStart: 12-27-2023 End: 03-45-5390ewxzjcrjliellt 1,000 mcg injectionStart: 11-29-2023 End: 24-61-4202labcfomhzawihs 1,000 mcg injectionStart: 10-27-2023 End: 38-22-0880jbfnbicrfbillx 1,000 mcg injectionStart: 09-30-2023 End: 78-48-4091hpimomnvzjuswg 1,000 mcg injection Problems Active Problems Problem ClassificationProblemDateDocumented DateEpisodic/ChronicAbdominal pain (20 sources)Finding of sensation of abdomen; Translations: [Unspecified abdominal pain]04-61-0780AwgzogmfMgtitmj disorders (20 sources)Anxiety; Translations: [Anxiety disorder, unspecified]Onset: 907424-10-9307GqljflgYnnzklecy infection; unspecified site (3 sources)Bacterial infection due to Pseudomonas; Translations: [Other bacterial infections of unspecified site]Onset: 558843-98-5914Ptyrgdtb Cardiac dysrhythmias (20 sources)Postural orthostatic tachycardia syndrome ; Translations: [POTS (postural orthostatic tachycardia syndrome)]Onset: 32-51-9483EicyekaRknkbkshpt and other anemia (9 sources)Anemia of chronic disease; Translations: [Anemia in other chronic diseases classified elsewhere]ChronicDeficiency and other anemia (1 source)Anemia in other chronic diseases classified elsewhere; Translations: [Anemia of chronic disease]Onset: 88-11-8010LrcgkafEybeiizs mellitus without complication (3 sources)Type 2 diabetes mellitus; Translations: [Type 2 diabetes mellitus without complications]Onset: 053941-47-6244HksjxnnZlgajtkp of white blood cells (1 source)Leukocytosis; Translations: [Elevated white blood cell count, unspecified]Onset: 817581-28-9417DqymeitImisyiiot of lipid metabolism (20 sources)Hyperlipidemia; Translations: [Hyperlipidemia, unspecified]Onset: 966017-21-4193RkrhhadKlotuabfcu disorders (20 sources)Laryngopharyngeal reflux; Translations: [Gastro-esophageal reflux disease without esophagitis]Onset: 704450-89-3022TplunluDowqtiboz hypertension (20 sources)Essential hypertension; Translations: [Essential (primary) hypertension]Onset: 131996-96-4184AodxmthGxqkd of unknown origin (1 source)Pyrexia of unknown origin; Translations: [Fever, unspecified] 62-98-6167IunacuyvStnrikfr disorders (20 sources)Hypogammaglobulinemia; 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]Onset: 731347-88-4950XdbxmxzGcyjpjetssroi and screening for infectious disease (20 sources)Anti-nuclear factor positive; Translations: [Other specified abnormal immunological findings in serum]Onset: 85-46-8753ExmkeyqmOmfdizm and fatigue (20 sources)Malaise and fatigue; Translations: [Chronic fatigue, unspecified] Onset: 41-97-6936GhdiqldZloareokx disorders (20 sources)Excessive and frequent menstruation with irregular cycle; Translations: [Menometrorrhagia]Onset: 79-25-4878XskqlxnBmsv disorders (20 sources)Recurrent depression; Translations: [Major depressive disorder, recurrent, unspecified]Onset: 585929-09-9973ExfvrxnLcfgsrf (3 sources)Candidiasis of mouth; Translations: [Candidal stomatitis]04-02-2024 EpisodicNeoplasms of unspecified nature or uncertain behavior (2 sources)Neoplasm of uncertain behavior of skin; Translations: [Neoplasm of uncertain behavior of skin]62-90-4404GmrnhizvEzhypooszdxl breast conditions (20 sources)Mammary duct ectasia; 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]Onset: 820767-48-8573GnvsqjzXkxoqrllhmwf breast conditions (20 sources)Discharge from nipple; Translations: [Nipple discharge]Onset: 292834-35-2885RtqmvhseKlzgqoeloor deficiencies (20 sources)Vitamin D deficiency; Translations: [Vitamin D deficiency, unspecified]Onset: 44-11-8619GtdgxfdYkzbciesdrxido (20 sources)Degenerative joint disease involving multiple joints; 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]Onset: 45-83-6009SgcrizrTxgoryvwguxs (20 sources)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; Translations: [Other osteoporosis without current pathological fracture]Onset: 542374-07-0094 ChronicOther aftercare (3 sources)Drug therapy status; Translations: [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]EpisodicOther aftercare (1 source)Polypharmacy ; Translations: [Other group home (current) drug therapy] EpisodicOther aftercare (1 source)Long-term current use of drug therapy; Translations: [Encounter for group home current use of azathioprine]34-15-7535EvigwregQasep circulatory disease (20 sources)Raynaud's disease; Translations: [Raynaud's syndrome without gangrene]Onset: 008726-70-6868RtjhfqpAczcz circulatory disease (2 sources)Spider nevus; Translations: [Nevus, non-neoplastic]60-03-9231Owmqsuuf Other congenital anomalies (1 source)Emanuel-Danlos syndrome; 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, unspecified]45-32-9672YwdkrqvYrote connective tissue disease (1 source)Pain in left foot; Translations: [Pain in left foot]Onset: 09-14-2018 EpisodicOther connective tissue disease (1 source)Pain in right foot; Translations: [Pain in right foot]Onset: 57-51-3001PgqxnrqtGtfxv connective tissue disease (20 sources)Paraparesis; Translations: [Other symptoms and signs involving the musculoskeletal system]Onset: 754233-53-4387DjggsxytOwkcs connective tissue disease (3 sources)Pain of bilateral hands; Translations: [Pain in right hand]10-05-2023 EpisodicOther ear and sense organ disorders (2 sources)Pain of ear structure; Translations: [Otalgia, right ear]04-10-2024 EpisodicOther female genital disorders (2 sources)Abnormal uterine bleeding; Translations: [Abnormal uterine and vaginal bleeding, unspecified]02-06-0264IikjsrjDavko gastrointestinal disorders (3 sources)Diarrhea, unspecified; Translations: [Diarrhea]75-50-4978Ubuepouh Other gastrointestinal disorders (17 sources)Abdominal mass; Translations: [Intra-abdominal and pelvic swelling, mass and lump, unspecified site]20-12-0628UywiwkljDtswf gastrointestinal disorders (17 sources)Burning sensation; Translations: [Other specified symptoms and signs involving the digestive systemand abdomen]09-31-9001RxkugogzMawep gastrointestinal disorders (17 sources)Abdominal bloating; Translations: [Abdominal distension (gaseous)] 87-92-5431MpuosykfIwbqk gastrointestinal disorders (17 sources)Constipation; Translations: [Constipation, unspecified]12-12-2024 EpisodicOther infections; including parasitic (1 source)Recurrent infectious disease; Translations: [Unspecified infectious disease]18-15-1722AhltysyiYjtfa inflammatory condition of skin (20 sources)Discoid lupus erythematosus; 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]Onset: 798753-68-8561RpnoelgTjctv inflammatory condition of skin (4 sources)Discoid lupus erythematosus; Translations: [DISCOID LUPUS ERYTHEMATOSUS]Onset: 67-69-4528NsvepwrYtgzw inflammatory condition of skin (10 sources)Lupus erythematosus; 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] Onset: 002940-27-9069FpwdmctDckog inflammatory condition of skin (2 sources)Lupus erythematosus tumidus; 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]85-17-8929ZhacmfbIfprn inflammatory condition of skin (2 sources)Seborrheic dermatitis; Translations: [Other seborrheic dermatitis] 56-92-6276ZenpaakvUzhbv injuries and conditions due to external causes (1 source)Delayed healing of wound; Translations: [Other injury of unspecified body region, subsequent encounter]EpisodicOther liver diseases (9 sources)Steatosis of liver; Translations: [Fatty (change of) liver, not elsewhere classified]Onset: 614624-43-4876GjphizuHvpur lower respiratory disease (2 sources)Snoring; Translations: [Snoring]EpisodicOther nervous system disorders (20 sources)Chronic pain syndrome; Translations: [Chronic pain syndrome]Onset: 492859-55-0035RtemzniQrugv nervous system disorders (20 sources)Chronic pain; Translations: [Other chronic pain]03-70-9767Krwhzna Other nervous system disorders (20 sources)Disorder of autonomic nervous system; Translations: [Disorder of the autonomic nervous system, unspecified]Onset: 783314-65-8217RvihpqjZjmuc nervous system disorders (13 sources)Other chronic pain; Translations: [Other chronic pain]Onset: 123215-41-0680TystedkRwrsw nervous system disorders (1 source)Numbness; Translations: [Anesthesia of skin]28-35-8780FedgkxliUbjrr nervous system disorders (4 sources)Cold extremity; Translations: [Unspecified disturbances of skin sensation]91-46-4627CrhtctekBddco non-traumatic joint disorders (1 source)Hypermobility syndrome; Translations: [Other specific joint derangements of unspecified joint, not elsewhere classified]88-16-0423Vfxgmst Other non-traumatic joint disorders (1 source)Other specific joint derangements of unspecified joint, not elsewhere classified; 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]Onset: 09-19-2024 ChronicOther nutritional; endocrine; and metabolic disorders (20 sources)Obesity; Translations: [Obesity, unspecified]Onset: 09-07-2022 91-59-3685RkwnvipHeher nutritional; endocrine; and metabolic disorders (20 sources)Body mass index 40+ - severely obese; Translations: [Morbid (severe) obesity due to excess calories]Onset: 84-38-7107LayutvjLusao nutritional; endocrine; and metabolic disorders (20 sources)Insulin resistance; Translations: [Insulin resistance, unspecified] Onset: 802085-37-7546KygihsrCayjp nutritional; endocrine; and metabolic disorders (2 sources)Morbid obesity; Translations: [Morbid (severe) obesity due to excess calories]83-64-5312IgumgkrVzgmq nutritional; endocrine; and metabolic disorders (2 sources)Morbid (severe) obesity due to excess calories; Translations: [Morbid (severe) obesity due to excess calories (Multi)]Onset: 66-72-6999OsxpicgJkiud nutritional; endocrine; and metabolic disorders (1 source)Childhood obesity; Translations: [Obesity, unspecified]03-14-2025 ChronicOther screening for suspected conditions (not mental disorders or infectious disease) (20 sources)Elevated C-reactive protein; Translations: [Elevated C-reactive protein (CRP)]Onset: 65-10-9119KqmsvipyLvhzt skin disorders (5 sources)Hidradenitis suppurativa; Translations: [Hidradenitis suppurativa] 58-99-9958VdaczcevJejza skin disorders (4 sources)Acne vulgaris; Translations: [Acne vulgaris]60-57-8911EpjzgbbyXsdta upper respiratory disease (20 sources)Chronic pharyngolaryngitis; Translations: [Chronic laryngitis]Onset: 042373-57-3191UlfzmcfJzvprlo cyst (1 source)Unspecified ovarian cyst, left side; Translations: [UNSPECIFIED OVARIAN CYST LEFT SIDE]Onset: 16-50-3476EfgyckjaOsnvinguos and visceral atherosclerosis (2 sources)Peripheral vascular disease; Translations: [Peripheral vascular disease, unspecified]84-90-9802FkfafstDjruumjy codes; unclassified (20 sources)Obstructive sleep apnea syndrome; Translations: [Obstructive sleep apnea (adult) (pediatric)]Onset: 14-25-9039EkizutgVfevbuvy codes; unclassified (3 sources)Obstructive sleep apnea (adult) (pediatric); Translations: [Obstructive sleep apnea (adult) (pediatric)]Onset: 43-46-7373MtvsnafGsutrvvr codes; unclassified (1 source)Sleep apnea; Translations: [Sleep apnea, unspecified]Onset: 05-20-2022 07-11-4447SyitachNrnwkfci codes; unclassified (1 source)Family history of hereditary disease; Translations: [Family history of other specified conditions]EpisodicResidual codes; unclassified (1 source)Family history of malignant neoplasm of breast; Translations: [FAMILY HX MALIG NEOPLASM OF BREAST]Onset: 00-79-9080AnsygpkdHjxdompp codes; unclassified (1 source)Family history of malignant neoplasm of digestive organs; Translations: [FAM HX MALIG NEOPLASM DIGESTIV ORGN]Onset: 94-10-9755Pwzpyjpy Residual codes; unclassified (1 source)Bilateral lower limb edema; Translations: [Localized edema]07-13-2023 EpisodicResidual codes; unclassified (1 source)Finding of mouth region; Translations: [Unspecified symptoms and signs involving general sensationsand perceptions]69-11-0806NqmiqjarEjcyxjyp codes; unclassified (1 source)FH: Cardiovascular disease; Translations: [Family history of ischemic heart disease and other diseases of the circulatory system]98-14-8000Hzrqliwe Residual codes; unclassified (2 sources)Family history of cancer; Translations: [Family history of malignant neoplasm, unspecified]15-96-3458GtwkgiyoSesugpyg codes; unclassified (1 source)FH: Respiratory disease; Translations: [Family history of other diseases of the respiratory system]79-03-2725JplpsnebEfbbosaj codes; unclassified (1 source)FH: Aortic aneurysm; Translations: [Family history of ischemic heart disease and other diseases of the circulatory system]09-49-9308RsnzlxymVtcbwbax codes; unclassified (2 sources)Pain; Translations: [Pain, unspecified]64-25-6446OheufeaaCyceszwj codes; unclassified (1 source)Tobacco yktq61-20-2254ThtjoaykMqndrlyvsj arthritis and related disease (4 sources)Rheumatoid arthritis; Translations: [Rheumatoid arthritis, unspecified]Onset: 827961-61-4914XqmlpfjMane and subcutaneous tissue infections (9 sources)Pilonidal cyst; Translations: [Pilonidal cyst without abscess]Onset: 057549-94-7995NccfxqedDbmgirczdox; intervertebral disc disorders; other back problems (20 sources)Bilateral inflammation of sacroiliac joint; Translations: [Sacroiliitis, not elsewhere classified]Onset: 838101-15-9461Vnkezkj Substance-related disorders (20 sources)Tobacco user; Translations: [Nicotine dependence, unspecified, uncomplicated]Onset: 135420-46-3494FpsroqpKtxlmjdx lupus erythematosus and connective tissue disorders (20 sources)Systemic lupus erythematosus; Translations: [Other organ or system involvement in systemic lupus erythematosus]Onset: 69-09-4242AxbynyjZjjfbwc disorders (20 sources)Thyroid nodule; Translations: [Nontoxic single thyroid nodule]Onset: 797867-07-8562XzruuxfOuzhjvllanls (1 source)Supraventricular tachycardia, unspecified (CMS-HCC); Translations: [Supraventricular tachycardia, unspecified (CMS-HCC)]Onset: 07-13-2023 Unclassified (8 sources)Call Dr. Donaldson office to schedule a follow up appointment if you do not already have one scheduled Past or Other Problems Problem ClassificationProblemDateDocumented DateEpisodic/ChronicCardiac dysrhythmias (20 sources)Tachycardia, unspecified; Translations: [Tachycardia]Onset: 10-15-2021 Resolved: 24-85-5763GbtrotslGeno; stupor; and brain damage (20 sources)Daytime somnolence; Translations: [Somnolence]Onset: 05-20-2022 EpisodicConditions associated with dizziness or vertigo (20 sources)Dizziness; Translations: [Dizziness and giddiness]Onset: 06-01-2023 14-17-0053OsxbtppiGmcncxwqru and other anemia (20 sources)Megaloblastic anemia due to vitamin B>12< deficiency; Translations: [Other megaloblastic anemias, not elsewhere classified]Onset: 03-04-2022 81-70-8196PywdrewaDhimbzqlbp and other anemia (1 source)Anemia, unspecified; Translations: [ANEMIA UNSPECIFIED]Onset: 57-32-8812PzpmkigoZbmrhgnxhs and other anemia (20 sources)Anemia; Translations: [Anemia, unspecified]Onset: 03-11-2022 14-61-6961RldugdviFsvwkgkjib and other anemia (20 sources)Iron deficiency anemia; Translations: [Other iron deficiency anemias]Onset: 251663-74-1201PjgubqkgFmhitrmkxk and other anemia (1 source)Other megaloblastic anemias, not elsewhere classified; Translations: [Megaloblastic anemia due to vitamin B12 deficiency]Onset: 26-17-6689Habguwcn Deficiency and other anemia (1 source)Other iron deficiency anemias; Translations: [Other iron deficiency anemia]Onset: 03-18-6468OattxotgIhawhzxa mellitus without complication (20 sources)Increased glucose level; Translations: [Other abnormal glucose] Onset: 57-12-1857LnfbhaltVygconao of mouth; excluding dental (20 sources)Oral lesion; Translations: [Unspecified lesions of oral mucosa] Onset: 889773-73-6856GxbejwtlX Codes: Fall (1 source)Fall on same level from slipping, tripping and stumbling without subsequent striking against object, initial encounter; Translations: [FALL SAME LVL SLIP NO STRK OBJ INIT]Onset: 95-95-5477AybjoqeiZrfcjucs; including migraine (20 sources)Headache; Translations: [Nonintractable episodic headache]Onset: 753326-56-9732BvzlospgHgcczziaya infection (20 sources)Clostridium difficile diarrhea; Translations: [Enterocolitis due to Clostridium difficile, not specified as recurrent]Onset: EpisodicJoint disorders and dislocations; trauma-related (1 source)Unspecified subluxation of right patella, initial encounter; Translations: [UNS SUBLUXATION RT PATELLA INITIAL]Onset: 74-12-2894Xhpotlde Lymphadenitis (20 sources)Lymphadenopathy; Translations: [Enlarged lymph nodes, unspecified] Onset: 665247-32-9689XkfrmudxZgvsotg and fatigue (4 sources)Malaise and fatigue; Translations: [Other malaise]Onset: 11-29-2024 06-16-6062NivpbbmlWjmloenpmdr deficiencies (20 sources)Cobalamin deficiency; Translations: [Deficiency of other specified B group vitamins]Onset: 03-00-9941WmaicgtdPfmod aftercare (20 sources)Drug therapy finding; Translations: [Other terminal computer operator (current) drug therapy]Onset: 04-93-0236SodulynlUbepy aftercare (20 sources)H/O: high risk medication; Translations: [Other group home (current) drug therapy]Onset: 572297-11-1307IojfnnnbVzuli aftercare (1 source)Other group home (current) drug therapy; Translations: [OTH STRAW HAT BRUSHER 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 THERAPY]Onset: 87-27-9280NsrjgnfuTkccu aftercare (20 sources)Long-term current use of systemic steroid; Translations: [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) use of systemic steroids]Onset: 492818-28-2976UcfkxfipQibau connective tissue disease (20 sources)Pain in toe; Translations: [Pain in right toe(s)]Onset: 03-05-2021 EpisodicOther connective tissue disease (20 sources)Fibromyalgia; Translations: [Fibromyalgia]Onset: 09-61-1465Nrhqobdl Other connective tissue disease (20 sources)Other symptoms and signs involving the musculoskeletal system; Translations: [Other musculoskeletalsymptoms referable to limbs]Onset: 140933-51-4962IyonvkkkZkhsl connective tissue disease (20 sources)Enthesopathy of hip region; Translations: [Other specified enthesopathies of unspecified lower limb, excluding foot]Onset: 07-06-2023 72-85-0376FlthbvqrWpfty connective tissue disease (20 sources)Muscle pain; Translations: [Myalgia, unspecified site]Onset: 663671-87-1994HcczpxepHhayd connective tissue disease (2 sources)Pain in lower limb; Translations: [Pain in leg, unspecified] 56-18-8259XvkrijzlPxcxf gastrointestinal disorders (20 sources)Diarrhea; Translations: [Diarrhea, unspecified]Onset: 03-07-2024 74-84-8144JhkparrtJvpvv hematologic conditions (20 sources)ESR raised; Translations: [Elevated erythrocyte sedimentation rate] Onset: 62-52-1299WnphzouaFrcjc hematologic conditions (9 sources)Elevated erythrocyte sedimentation rate; Translations: [ELEVATED ERYTHROCYTE SED RATE]Onset: 03-05-2021 Resolved: 49-56-6590XhfhlufzZqhpw infections; including parasitic (20 sources)Disorder due to infection; Translations: [Personal history of other infectious and parasitic diseases]Onset: 445483-54-4371EkjwfqbpHnbci infections; including parasitic (1 source)Personal history of other infectious and parasitic diseases; Translations: [Frequent infections]Onset: 64-60-8903FbvwkcnuIxuch injuries and conditions due to external causes (3 sources)Unspecified injury of right lower leg, initial encounter; Translations: [UNS INJURY RT LOWER LEG INITIAL ENC]Onset: 98-13-6745Qdhessyc Other lower respiratory disease (20 sources)Dyspnea; Translations: [Shortness of breath]Onset: 07-13-2023 91-69-5682KcldyueoNpgyo lower respiratory disease (2 sources)Shortness of breath; Translations: [Shortness of breath]Onset: 18-00-7560IagkfnqqOsmob nervous system disorders (20 sources)Ataxia; Translations: [Ataxia, unspecified]Onset: 05-31-2014 03-07-7714GtajfsfyRvfbc nervous system disorders (20 sources)Skin sensation disturbance; Translations: [Unspecified disturbances of skin sensation]Onset: 718416-09-9320AowrpuixFymxg nervous system disorders (20 sources)Paresthesia; Translations: [Paresthesia of skin]Onset: 11-08-2023 58-41-3163IrjlposlWwhou non-traumatic joint disorders (20 sources)Hip pain; Translations: [Pain in unspecified hip]Onset: 07-06-2023 42-12-2801RtdswwltXrztu non-traumatic joint disorders (5 sources)Pain in right knee; Translations: [PAIN IN RIGHT KNEE]Onset: 94-18-3786WxnjnsmjHuuai non-traumatic joint disorders (1 source)Effusion, right knee; Translations: [EFFUSION RIGHT KNEE]Onset: 95-44-7301KhxwyknrVetqq non-traumatic joint disorders (20 sources)Bilateral wrist pain; Translations: [Pain in right wrist]Onset: 190807-05-1908StdofwprVybnu nutritional; endocrine; and metabolic disorders (20 sources)Obese class II; Translations: [Obesity, unspecified]Onset: 03-09-2022 Resolved: 562619-01-7373IbwzrevPqtue nutritional; endocrine; and metabolic disorders (20 sources)Body mass index 30+ - obesity; Translations: [Obesity, unspecified] Onset: 05-31-2014 Resolved: 059258-33-2816ZttsjgmXsmld nutritional; endocrine; and metabolic disorders (20 sources)History of nutritional deficiency; Translations: [Personal history of other endocrine, nutritional and metabolic disease]Onset: 10-05-2023 65-13-9214JreeeeolKtxcz skin disorders (20 sources)Eruption; Translations: [Rash and other nonspecific skin eruption] Onset: 60-15-5415CsbybdmbZxtpa skin disorders (20 sources)Loss of hair; Translations: [Nonscarring hair loss, unspecified] Onset: 91-66-9018QkgwjmroZetuj upper respiratory disease (20 sources)Hoarse; Translations: [Dysphonia]Onset: 673673-11-2686Gyaaoglv Residual codes; unclassified (20 sources)FH: Crohn's disease; Translations: [Family history of other diseases of the digestive system]Onset: 44-22-8173CbokshjlFaushizl codes; unclassified (3 sources)Flushing; Translations: [FLUSHING]Onset: 10-15-2021 Resolved: 10-18-3023MwgjjusiIfmweout codes; unclassified (1 source)Family history of ischemic heart disease and other diseases of the circulatory system; Translations: [Family history of aortic aneurysm]Onset: 49-67-1886ZksiodkuUczrsqfefmk; intervertebral disc disorders; other back problems (20 sources)Chronic low back pain; Translations: [Lumbago with sciatica, left side]Onset: 42-86-9278KztwsutwJxdyamzgsvtc (2 sources)Onset: 07-13-2023 Resolved: 943677-42-3453Ukpqahsfvwck (1 source)Supraventricular tachycardia, unspecified (CMS-HCC); Translations: [Supraventricular tachycardia, unspecified (CMS-HCC)]Onset: 52-70-9532Xkebs infection (20 sources)Cytomegaloviral disease, unspecified; 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]Onset: 09-11-2021 Resolved: 49-77-2754Enephceu Results Test NameValueInterpretationReference RangeFacilityCBC W Auto Differential panel (Bld)on 97-28-4135Hcsdfaehn (Bld) [#/Vol]0.10 10*3/uLNormal<0.11CThe [facility] on above:Order Comment: Specimen Type: BLOOD SPECIMENOrdering Facility: [facility] Address:[address] [place], [place] [address]Performed By: #### [id number] ####[facility] LABCLIA [id number] [place], [place] [address]Cmgkqtegn/100 WBC (Bld)0.8 % NormalGeorgetown Behavioral Hospital on above:Order Comment: Specimen Type: BLOOD SPECIMENOrdering Facility: [facility] Address:[address] [id number] By: #### [id number] ####[facility] LABCLIA [id number] [place] [address] Differential cell count method Nom (Bld)AutoNormalClevelCommunity Health Comment on above:Order Comment: Specimen Type: BLOOD SPECIMENOrdering Facility: [facility] Address:[address] [place] [address] Performed By: #### [id number] ####[facility] LABCLIA [id number] [place], [place] [address]Ddkdomxsael (Bld) [#/Vol]0.14 10*3/uLNormal<0.46[facility] on above:Order Comment: Specimen Type: BLOOD SPECIMENOrdering Facility: [facility] Address:[address] [place], [place] [address]Performed By: #### [id number] ####[facility] LABIA [id number] [place], [place] [address]Vzzqbqozeho/100 WBC (Bld)1.1 %NormalGeorgetown Behavioral Hospital on above:Order Comment: Specimen Type: BLOOD SPECIMENOrdering Facility: [facility] Address:[address] [place], [place] [address]Performed By: #### 57792-7 ####[facility] LABIA [id number] [place], [place] [address]Oqsiewssdeo distribution width (RBC) [Ratio]14.1 %Flszjt80.5-15.0[facility] on above: Order Comment: Specimen Type: BLOOD SPECIMENOrdering Facility: [facility] Address:[address] [place], [place] [address]Performed By: #### [id number]- 8 ####[facility] LABIA [id number] [place], [place] [address]Dgavycproa (Bld) [Volume fraction]44.4 %Ofjwye95.0-46.0 [facility] on above:Order Comment: Specimen Type: BLOOD SPECIMENOrdering Facility: [facility] Address:[address] [place], [place] [address]Performed By: #### 13934-8 ####[facility] LABIA [id number] [place], [place] [address]Dqhlmtmbbb (Bld) [Mass/Vol]14.9 g/fIWcqafu53.5-15.5CThe [facility] on above: Order Comment: Specimen Type: BLOOD SPECIMENOrdering Facility: [facility] Address:[address] [place], [place] [address]Performed By: #### 08510- 8 ####[facility] LABIA [id number] [place], [place] [address]Ypoikrrj granulocytes (Bld) [#/Vol]0.16 10*3/uLHigh<0.10 [facility] on above:Order Comment: Specimen Type: BLOOD SPECIMENOrdering Facility: [facility] Address:[address] [place], [place] [address]Performed By: #### 90424-5 ####[facility] LABIA [id number] [place], [place] [address]Ranyfvhj granulocytes/100 WBC (Bld)1.2 %NormalGeorgetown Behavioral Hospital on above: Order Comment: Specimen Type: BLOOD SPECIMENOrdering Facility: [facility] Address:[address] [place], [place] [address]Performed By: #### 08237- 8 ####[facility] LABCLIA [id number] [place], [place] [address]Kyjaadiasph (Bld) [#/Vol]1.94 10*3/uLNormal1.00-4.00 [facility] on above:Order Comment: Specimen Type: BLOOD SPECIMENOrdering Facility: [facility] Address:[address] [place], [place] [address]Performed By: #### 12376-3 ####[facility] LABIA [id number] [place], [place] [address]Amrjshbuvvb/100 WBC (Bld)14.9 %NormalGeorgetown Behavioral Hospital on above:Order Comment: Specimen Type: BLOOD SPECIMENOrdering Facility: [facility] Address:[address] [place], [place] [address]Performed By: #### 98121-2 ####[facility] LABCLIA [id number] [place], [place] [address]CIW (RBC) [Entitic mass]31.8 paVlkcvg41.0-34.0[facility] on above:Order Comment: Specimen Type: BLOOD SPECIMENOrdering Facility: [facility] Address:[address] [place], [place] [address]Performed By: #### 53190-5 ####[facility] LABCLIA [id number] [place], [place] [address]ZWQC (RBC) [Mass/Vol]33.6 g/dKUyptco06.5-36.0[facility] on above: Order Comment: Specimen Type: BLOOD SPECIMENOrdering Facility: [facility] Address:[address] [place], [place] [address]Performed By: #### 35103- 8 ####[facility] LABCLIA [id number] [place], [place] [address]NZA (RBC) [Entitic vol]94.9 oMUqecqx41.0-100.0[facility] on above:Order Comment: Specimen Type: BLOOD SPECIMENOrdering Facility: [facility] Address:[address] [place], [place] [address]Performed By: #### 80418-2 ####[facility] LABIA [id number] [place], [place] [address]Fjoldtuzb (Bld) [#/Vol]0.94 10*3/uLHigh<0.87[facility] on above:Order Comment: Specimen Type: BLOOD SPECIMENOrdering Facility: [facility] Address:[address] [place], [place] [address]Performed By: #### 51162- 8 ####[facility] LABCLIA [id number] [place], [place] [address]Fhqukibpf/100 WBC (Bld)7.2 %NormalGeorgetown Behavioral Hospital on above:Order Comment: Specimen Type: BLOOD SPECIMENOrdering Facility: [facility] Address:[address] [place], [place] [address]Performed By: #### 43560-0 ####[facility] LABCLIA [id number] [place], [place] [address]Qpdazqzmgvu (Bld) [#/Vol]9.74 10*3/uLHigh1.45-7.50[facility] on above:Order Comment: Specimen Type: BLOOD SPECIMENOrdering Facility: [facility] Address:[address] [place], [place] [address]Performed By: #### 02265-4 ####[facility]ITAL[facility]APH[facility] LABCLIA [id number] [place], [place] [address]Crlainiwuxn/100 WBC (Bld)74.8 %NormalGeorgetown Behavioral Hospital on above:Order Comment: Specimen Type: BLOOD SPECIMENOrdering Facility: [facility] Address:[address] [place], [place] [address]Performed By: #### 44612-2 ####[facility] LABCLIA [id number] [place], [place] [address]Yxuoasijy RBC (Bld) [#/Vol] 10*3/uLNormal<0.01[facility] on above:Order Comment: Specimen Type: BLOOD SPECIMENOrdering Facility: [facility] Address:[address] [place], [place] [address]Performed By: #### 39517-4 ####[facility] LABCLIA [id number] [place], [place] [address]Jzndddnpy RBC/100 WBC (Bld) [Ratio]0.0 /100 WBCNormal [facility] on above:Order Comment: Specimen Type: BLOOD SPECIMENOrdering Facility: [facility] Address:[address] [place], [place] [address]Performed By: #### 34937-6 ####[facility] LABCLIA [id number] [place], [place] [address]Qzfidoyz mean volume (Bld) [Entitic vol]10.3 fLNormal9.0-12.7CThe [facility] on above:Order Comment: Specimen Type: BLOOD SPECIMENOrdering Facility: [facility] Address:[address] [place] [address] Performed By: #### 31979-0 ####[facility] LABCLIA [id number] [place], [place] [address]Whkcdpdat (Bld) [#/Vol]319 10*3/lVRfiswp751-347OrliggmdlGeorgetown Behavioral Hospital on above:Order Comment: Specimen Type: BLOOD SPECIMENOrdering Facility: [facility] Address:[address] [place], [place] [address]Performed By: #### 02336-9 ####[facility] LABCLIA [id number] [place], [place] [address]SHV (Bld) [#/Vol]4.68 10*6/uLNormal3.90-5.20[facility] on above:Order Comment: Specimen Type: BLOOD SPECIMENOrdering Facility: [facility] Address:[address] [place], [place] [address]Performed By: #### 25672-3 ####[facility] LABCLIA [id number] [place], [place] [address]VZE (Bld) [#/Vol]13.02 10*3/uLHigh3.70-11.00[facility] on above: Order Comment: Specimen Type: BLOOD SPECIMENOrdering Facility: [facility] Address:[address] [place], [place] [address]Performed By: #### 59940- 8 ####[facility] LABCLIA [id number] [facility] [place] [address]Hdsoeyuxpfioj metabolic 2000 panelon 79-88-9769Clxpkiy [Mass/Vol]4.3 g/dLNormal3.9-4.9CThe [facility] on above:Order Comment: Specimen Type: BLOOD SPECIMENOrdering Facility: [facility] Address:[address] [place], [place] [address]Performed By: #### 89462- 8 ####[facility] LABCLIA [id number] [facility] [place], [place] [address]YSY [Catalytic activity/Vol]80 U/GRqufdj21-159LvtktgdlsGeorgetown Behavioral Hospital on above:Order Comment: Specimen Type: BLOOD SPECIMENOrdering Facility: [facility] Address:[address] [place], [place] [address]Performed By: #### 37569-9 ####[facility] LABCLIA [id number] [place], [place] [address]OMU [Catalytic activity/Vol]37 U/LNormal7-38[facility] on above:Order Comment: Specimen Type: BLOOD SPECIMENOrdering Facility: [facility] Address:[address] [place], [place] [address]Performed By: #### 33582- 8 ####[facility] LABCLIA [id number] [facility] [place], [place] [address]Htqrn gap [Moles/Vol]15 mmol/LNormal8-15[facility] on above:Order Comment: Specimen Type: BLOOD SPECIMENOrdering Facility: [facility] Address:[address] [place], [place] [address]Performed By: #### 79897-3 ####[facility] LABCLIA [id number] [place], [place] [address]FNN [Catalytic activity/Vol]18 U/MVsgtgl51-08MxzguqmgrGeorgetown Behavioral Hospital on above:Order Comment: Specimen Type: BLOOD SPECIMENOrdering Facility: [facility] Address:[address] [place], [place] [address]Performed By: #### 63830-6 ####[facility] LABCLIA [id number] [place] [address] Bilirubin [Mass/Vol]0.2 mg/dLNormal0.2-1.3CThe [facility] on above:Order Comment: Specimen Type: BLOOD SPECIMENOrdering Facility: [facility] Address:[address] [place], [place] [address]Performed By: #### 49023-8 ####[facility]ODAPH[facility] LABCLIA [id number] [facility], [place] [address]Nxlllxu [Mass/Vol]10.0 mg/dLNormal8.5-10.2CThe [facility] on above:Order Comment: Specimen Type: BLOOD SPECIMENOrdering Facility: [facility] Address:[address] [place], [place] [address]Performed By: #### 81187-3 ####[facility] LABCLIA [id number] [facility] [address]Phllctgb [Moles/Vol]104 mmol/RObgmui88-642TtiiredeqGeorgetown Behavioral Hospital on above: Order Comment: Specimen Type: BLOOD SPECIMENOrdering Facility: [facility] Address:[address] [place], [place] [address]Performed By: #### 63548- 8 ####[facility] LABCLIA [id number] [facility] [place] [address]KS4 [Moles/Vol]22 mmol/SCtrfkt05-24CxgwjmazfGeorgetown Behavioral Hospital on above:Order Comment: Specimen Type: BLOOD SPECIMENOrdering Facility: [facility] Address:[address] [place], [place] [address]Performed By: #### 72037-6 ####[facility] LABCLIA [id number] [place], [place] [address]Piawprdqnm [Mass/Vol]0.51 mg/dL Low0.58-0.96[facility] on above:Order Comment: Specimen Type: BLOOD SPECIMENOrdering Facility: [facility] Address:[address] [place], [place] [address]Performed By: #### 50006-1 ####[facility] LABCLIA [id number] [place] [address] eGFRcr SerPlBld CKD-EPI 2839922 mL/min/1.73m???Normal>=60[facility] on above:Order Comment: Specimen Type: BLOOD SPECIMENOrdering Facility: [facility] Address:[address] [place], [place] [address]Result Comment: Estimated Glomerular Filtration Rate (eGFR) is [...] accurately reflect actual GFR. Performed By: #### 29702-1 ####[facility] LABCLIA [id number] [place], [place] [address]Lksfcue [Mass/Vol]193 mg/dLHigh 74-99[facility] on above:Order Comment: Specimen Type: BLOOD SPECIMENOrdering Facility: [facility] Address:[address] [place], [place] [address]Result Comment: The [place] Diabetes Association (ADA) provides guidance for cutoff [...] Standards of Medical Care in Diabetes 2016, [place] Diabetes Association. Diabetes Care. 2016.39(Suppl 1).Performed By: #### 43687-0 ####[facility] LABCLIA [id number] [place], [place] [address]Kjysquufj [Moles/Vol]4.0 mmol/LNormal3.7-5.1CThe [facility] on above:Order Comment: Specimen Type: BLOOD SPECIMENOrdering Facility: [facility] Address:[address] [place], [place] [address]Performed By: #### 80960-2 ####[facility] LABCLIA [id number] [place], [place] [address]Rbeuqms [Mass/Vol]7.4 g/dLNormal6.3-8.0[facility] on above:Order Comment: Specimen Type: BLOOD SPECIMENOrdering Facility: [facility] Address:[address] [place], [place] [address]Performed By: #### 14627- 8 ####[facility] LABCLIA [id number] [place], [place] [address]Ufpjnx [Moles/Vol]141 mmol/IRksfuz888-768RvkykgqqzGeorgetown Behavioral Hospital on above:Order Comment: Specimen Type: BLOOD SPECIMENOrdering Facility: [facility] Address:[address] [place], [place] [address]Performed By: #### 94206-0 ####[facility] LABCLIA [id number] [place], [place] [address]Qghj nitrogen [Mass/Vol]16 mg/dLNormal7-21[facility] on above:Order Comment: Specimen Type: BLOOD SPECIMENOrdering Facility: [facility] Address:[address] [place], [place] [address]Performed By: #### 60369-4 ####[facility] LABCLIA [id number] [place], [place] [address]SXASOABINTFYOCA,IGG,IGA,IGMon 57-12-4310YiR [Mass/Vol]167 mg/mVNvwrcb97-472PnocmhghwGeorgetown Behavioral Hospital on above:Order Comment: Specimen Type: BLOOD SPECIMENOrdering Facility: [facility] Address:[address] [place], [place] [address]Performed By: #### SERIMM ####[facility] LABCLIA [id number] [place] [id number] [place] AMERICAIgG [Mass/Vol]579 mg/tTFcm881-8813LcwfhrwjyGeorgetown Behavioral Hospital on above:Order Comment: Specimen Type: BLOOD SPECIMENOrdering Facility: [facility] Address:[address] [place], [place] [address]Performed By: #### SERIMM ####[facility] LABCLIA [id number] [place] [address] [place] AMERICAIgM [Mass/Vol]391 mg/dL Plid76-065BfzjbvnvhGeorgetown Behavioral Hospital on above:Order Comment: Specimen Type: BLOOD SPECIMENOrdering Facility: [facility] Address:[address] [place], [place] [address]Performed By: #### SERIMM ####[facility] LABCLIA [id number] [place] [id number] [place] AMERICACNPNon 71-30-6589IFIWYimouqPovmktqws Clinic ClevelandWOUND CULTUREon 60-20-8777CJJNA CULTURESPECIMEN DESCRIPTION WOUND SPECIAL REQUESTS RIGHT NIPPLE DISCHARGE GRAM SMEAR NO * Result Note: WBC'S SEEN * * Result Note: NO ORGANISMS SEEN * COLONY COUNT LIGHT GROWTH CULTURE STAPHYLOCOCCUS EPIDERMIDIS * Result Note: Testing performed at [place], [place] [address] * REPORT STATUS 03/18/2025 * Result Note: FINAL * ORGANISM STAPHYLOCOCCUS EPIDERMIDIS * Result Note: STAPHYLOCOCCUS EPIDERMIDIS * METHOD ELPIDIO CLINDAMYCIN >=8 RESISTANT ERYTHROMYCIN >=8 RESISTANT GENTAMICIN <=0.5 SUSCEPTIBLE PENICILLIN G >=0.5 RESISTANT RIFAMPIN <=0.5 SUSCEPTIBLE TETRACYCLINE 2 SUSCEPTIBLE TRIMETH-SULFA 80 RESISTANT VANCOMYCIN 1 SUSCEPTIBLE LEVOFLOXACIN >=8 RESISTANT OXACILLIN >=4 RESISTANT LINEZOLID 2 SUSCEPTIBLE INDUCIBLE CLINDAMYCIN RESISTANCE NEGATIVENoDunlap Memorial HospitalComment on above:Performed By: #### WDC #### [place] [address] Testing performed at [place], [place] [address]WOUND CULTUREon 06-05-1635HXPTE CULTURESPECIMEN DESCRIPTION WOUND SPECIAL REQUESTS LEFT NIPPLE DISCHARGE GRAM SMEAR NO * Result Note: WBC'S SEEN * * Result Note: NO ORGANISMS SEEN * CULTURE NO GROWTH 2 DAYS * Result Note: Testing performed at [place] [address] * REPORT STATUS 03/16/2025 * Result Note: FINAL *UC HealthComment on above:Performed By: #### WDC #### [place] [address] Testing performed at [place] [id number] Cultureon 43-36-9124Nhmsdiiq identified Cx Nom (U)<9,000 colonies/ml mixed bacterial skin contaminants 2 Days PERFORMED BY: [place] [address] PATHOLOGIST LOCK AND DAM OPERATOR TIM FOOTE M.D.[facility] Physician GroupComment on above: Performed By: #### CUU #### [place] [address] USAUrine cultureOrdered By: Gay De La Torre on 03-09-2025 Bacteria identified Cx Nom (U)2 DaysProMedica Flower Hospital Cultureon 28-13-9839Pxbxmqtm identified Cx Nom (U)ORGANISM: Christine albicans (O:CANALB) [place] Count >100,000 PERFORMED BY: [facility] [address] [facility] [place] [address] PATHOLOGIST LOCK AND DAM OPERATOR TIM FOOTE M.D.[facility] Physician GroupComment on above: Performed By: #### CUU #### [facility] [address] [place] [address] USAUrine cultureOrdered By: Jose Perez on 03-03-2025 Bacteria identified Cx Nom (U)Christine albicansAbnoMercy Health – The Jewish HospitalAerobic Cultureon 59-23-3687Ymnkmir CultureComment pilonidal abscess culture ORGANISM: Serratia marcescens (O:SERMAR) Quantity of Growth Light Growth Comment pilonidal abscess culture ORGANISM: Prevotella species (O:PRESP) Comments . Quantity of Growth Light Growth Send Test to Ref. Lab Sent to [facility] for CHRISTIAN ID Identification performed at: [employer] [id number] [employer] Events Scorer: Doyle Mendenhall PhD, Phone: [phone] Please contact Microbiology within 7 days if anaerobic susceptibilities are needed. Comment pilonidal abscess culture Gram Stain Result 1+ Gram Positive Cocci 2+ White Blood Cells Aerobic ELPIDIO Charge (NMIC56) SUSCEPTIBILITY ORGANISM: O:SERMAR ANTIBIOTIC INTERPRETATION ELPIIDO Amikacin S <16 Aztreonam I <4 Cefepime [...] RESISTANT TO ALL B-LACTAM DRUGS. PERFORMED BY: [facility] [address] [facility]. [place] [id number] PATHOLOGIST LOCK AND DAM OPERATOR TIM FOOTE M.D.NormalNaval Hospital Jacksonville Physician GroupComment on above: Performed By: #### AERC #### [facility] [address] [place] [id number] USAAerobic cultureOrdered By: Terence Blum on 03-02-2025 Bacteria identified Aer cx Nom (Unsp spec)Serratia marcescensAbnoMercy Health – The Jewish HospitalGram stain microscopyOrdered By: Terence Blum on 63-66-8079Aifczmqaqmn observation Gram stain Nom (Unsp spec)[facility] HospitalLon 03-02-2025L Specimen: [id number] Received: 03/05/25 Status: BAIRON Garcia Num: [id number] Spec Type: Surgical Subm Dr: Treence Blum MD Tissues: A Pilonidal Cyst (PRODUCT OF DEBRIDEMENT) Procedures: HE/2, Gross/Micro L3 Age/ Patient Sex Location Account Attending Physician Ariadna Haley 44/F [place] [id number] Terence Blum MD SPEC NUM: [id number] RECD: 03/05/25 STATUS: BAIRON COLEGonzalez NUM: [id number] EDITA: 03/02/[address]: Terence Blum MD ENTERED: 03/05/[address] [facility] [address]: DANIELLA TYPE: Surgical DEPT: S ENTERED BY: [id number] RECV BY: [id number] ORDERED: HE/2, Gross/Micro L3 ORDERED: HE/2, Gross/Micro [...] each specimen submitted in A2. (2, ns, [id number]) CPT Codes 45835 Specimen: [id number] Received: 03/05/25 Status: BAIRON Colegonzalez Num: [id number] Spec Type: Surgical Subm Dr: Terence Blum MD Tissues: A Pilonidal Cyst (PRODUCT OF DEBRIDEMENT) Procedures: HE/2, Gross/Micro L3 Patient: Ariadna Haley [id number] (Continued) Signed (signature on file) Merry Grajeda MD 03/06/25 [address] [facility]Sh[facility] 72-88-9010Gcqegujb identified Cx Nom (U)20,000 colonies/ml mixed bacterial skin contaminants including mixed gram negative bacilli - 2 Days PERFORMED BY: [facility] [address] [facility]. [place] [id number] PATHOLOGIST LOCK AND DAM OPERATOR TIM FOOTE M.D.NormalNaval Hospital Jacksonville Physician GroupComment on above: Performed By: #### CUU #### [facility] [address] [place] [address] USAUrine cultureOrdered By: Mathew Ji on 02-26-2025 Bacteria identified Cx Nom (U)bacilli - 2 DaysCleveland Clinic Marymount Hospital CBC W Auto Differential panel (Bld)on 82-18-0996Rprfsadcd (Bld) [#/Vol]0.09 10*3/uLNormal<0.11CThe [facility] on above:Order Comment: Specimen Type: BLOOD SPECIMENOrdering Facility: [facility] Address:[address] [place], [place] [address]Performed By: #### 25177-9 ####[facility] LABCLIA [id number] [place], [place] [address]Pgzuhpndk/100 WBC (Bld)0.7 %NormalMckitrick HospitalComhawthorn center on above:Order Comment: Specimen Type: BLOOD SPECIMENOrdering Facility: [facility] Address:[address] [place], [place] [address]Performed By: #### 60555-4 ####[facility] LABCLIA [id number] [place], [place] [address]Ghbjgooowixd cell count method Nom (Bld)AutoNormalCThe Jewish Hospital on above:Order Comment: Specimen Type: BLOOD SPECIMENOrdering Facility: [facility] Address:[address] [place], [place] [address]Performed By: #### 16474-0 ####[facility] LABCLIA [id number] [place], [place] [address]Kczamvqaowv (Bld) [#/Vol]0.11 10*3/uLNormal<0.46[facility] on above:Order Comment: Specimen Type: BLOOD SPECIMENOrdering Facility: [facility] Address:[address] [place], [place] [address]Performed By: #### 04591-6 ####[facility] LABIA [id number] [place], [place] [address]Qxkeufafbdz/100 WBC (Bld)0.8 %NormalGeorgetown Behavioral Hospital on above:Order Comment: Specimen Type: BLOOD SPECIMENOrdering Facility: [facility] Address:[address] [place], [place] [address]Performed By: #### 82783-4 ####[facility] LABIA [id number] [place], [place] [address]Fiwiacfvtsn distribution width (RBC) [Ratio]14.3 %Normal 11.5-15.0[facility] on above:Order Comment: Specimen Type: BLOOD SPECIMENOrdering Facility: [facility] Address:[address] [place], [place] [address]Performed By: #### 55223-6 ####[facility] LABIA [id number] [place] [address] Hematocrit (Bld) [Volume fraction]46.0 %Jkvbon89.0-46.0[facility] on above:Order Comment: Specimen Type: BLOOD SPECIMENOrdering Facility: [facility] Address:[address] [place], [place] [address]Performed By: #### 61439-1 ####[facility] LABIA [id number] [place], [place] [address]Rmeebqtbou (Bld) [Mass/Vol]15.1 g/eHAkotwv61.5-15.5CThe [facility] on above:Order Comment: Specimen Type: BLOOD SPECIMENOrdering Facility: [facility] Address:[address] [place], [place] [address]Performed By: #### 89846-1 ####[facility] LABIA [id number] [place], [place] [address]Lemnigfb granulocytes (Bld) [#/Vol]0.21 10*3/uLHigh<0.10 [facility] on above:Order Comment: Specimen Type: BLOOD SPECIMENOrdering Facility: [facility] Address:[address] [place], [place] [address]Performed By: #### 44379-3 ####[facility] LABCLIA [id number] [place], [place] [address]Ibbrznhb granulocytes/100 WBC (Bld)1.6 %NormalGeorgetown Behavioral Hospital on above: Order Comment: Specimen Type: BLOOD SPECIMENOrdering Facility: [facility] Address:[address] [place], [place] [address]Performed By: #### [id number]- 8 ####[facility] LABIA [id number] [place], [place] [address]Hpknnmhkcdi (Bld) [#/Vol]1.89 10*3/uLNormal1.00-4.00 [facility] on above:Order Comment: Specimen Type: BLOOD SPECIMENOrdering Facility: [facility] Address:[address] [place], [place] [address]Performed By: #### [id number] ####[facility] LABIA [id number] [place], [place] [address]Ndigmfwzfov/100 WBC (Bld)14.4 %NormalGeorgetown Behavioral Hospital on above:Order Comment: Specimen Type: BLOOD SPECIMENOrdering Facility: [facility] Address:[address] [place], [place] [address]Performed By: #### [id number] ####[facility] LABIA [id number] [place], [place] [address]RRM (RBC) [Entitic mass]31.7 yzPcaeul62.0-34.0[facility] [facility] on above:Order Comment: Specimen Type: BLOOD SPECIMENOrdering Facility: [facility] Address:[address] [place], [place] [address]Performed By: #### 32654-8 ####[facility] LABCLIA [id number] [place], [place] [address]SKYF (RBC) [Mass/Vol]32.8 g/vGRytynn09.5-36.0[facility] on above: Order Comment: Specimen Type: BLOOD SPECIMENOrdering Facility: [facility] Address:[address] [place], [place] [address]Performed By: #### 65604- 8 ####[facility] LABCLIA [id number] [place], [place] [address]HVZ (RBC) [Entitic vol]96.4 yRBtgenw32.0-100.0[facility] on above:Order Comment: Specimen Type: BLOOD SPECIMENOrdering Facility: [facility] Address:[address] [place], [place] [address]Performed By: #### 96307-3 ####[facility] LABIA [id number] [place], [place] [address]Kakwwrjgi (Bld) [#/Vol]0.92 10*3/uLHigh<0.87[facility] on above:Order Comment: Specimen Type: BLOOD SPECIMENOrdering Facility: [facility] Address:[address] [place], [place] [address]Performed By: #### 91495- 8 ####[facility] LABCLIA [id number] [place], [place] [address]Vknwbmnhp/100 WBC (Bld)7.0 %NormalGeorgetown Behavioral Hospital on above:Order Comment: Specimen Type: BLOOD SPECIMENOrdering Facility: [facility] Address:[address] [place], [place] [address]Performed By: #### 02599-1 ####[facility] LABCLIA [id number] [place], [place] [address]Ehotqmzpowo (Bld) [#/Vol]9.94 10*3/uLHigh1.45-7.50[facility] on above:Order Comment: Specimen Type: BLOOD SPECIMENOrdering Facility: [facility] Address:[address] [place], [place] [address]Performed By: #### 04190-1 ####[facility] LABCLIA [id number] [place], [place] [address]Aglwwqfcsfe/100 WBC (Bld)75.5 %NormalGeorgetown Behavioral Hospital on above:Order Comment: Specimen Type: BLOOD SPECIMENOrdering Facility: [facility] Address:[address] [place], [place] [address]Performed By: #### 55907-6 ####[facility] LABCLIA [id number] [place], [place] [address]Epmcconyf RBC (Bld) [#/Vol] 10*3/uLNormal<0.01[facility] on above:Order Comment: Specimen Type: BLOOD SPECIMENOrdering Facility: [facility] Address:[address] [place], [place] [address]Performed By: #### 73432-6 ####[facility] LABCLIA [id number] [place], [place] [address]Txjsfxyey RBC/100 WBC (Bld) [Ratio]0.0 /100 WBCNormal [facility] on above:Order Comment: Specimen Type: BLOOD SPECIMENOrdering Facility: [facility] Address:[address] [place], [place] [address]Performed By: #### 99133-1 ####[facility] LABIA [id number] [place], [place] [address]Riqhmebk mean volume (Bld) [Entitic vol]9.9 fLNormal9.0-12.7CThe [facility] on above:Order Comment: Specimen Type: BLOOD SPECIMENOrdering Facility: [facility] Address:[address] [place] [address] Performed By: #### 34838-3 ####[facility] LABCLIA [id number] [place], [place] [address]Crheyknvo (Bld) [#/Vol]305 10*3/iSCrvbyl101-601ZmkucnxiiGeorgetown Behavioral Hospital on above:Order Comment: Specimen Type: BLOOD SPECIMENOrdering Facility: [facility] Address:[address] [place], [place] [address]Performed By: #### 81179-4 ####[facility] LABCLIA [id number] [place], [place] [address]UQL (Bld) [#/Vol]4.77 10*6/uLNormal3.90-5.20[facility] on above:Order Comment: Specimen Type: BLOOD SPECIMENOrdering Facility: [facility] Address:[address] [place], [place] [address]Performed By: #### 33141-1 ####[facility] LABCLIA [id number] [place], [place] [address]WQM (Bld) [#/Vol]13.16 10*3/uLHigh3.70-11.00[facility] on above: Order Comment: Specimen Type: BLOOD SPECIMENOrdering Facility: [facility] Address:[address] [place], [place] [address]Performed By: #### 10780- 8 ####[facility] LABIA [id number] [place], [place] [address]FNBMVNdv 21-48-5274UZIKMWRpiwzhOueeackaq Clinic [facility] CNPNon 01-86-6991GAAFAulosfOskckfuuw Clinic ClevelandComprehensive metabolic 2000 panelon 73-94-5314Hlbnwyn [Mass/Vol]4.3 g/dLNormal3.9-4.9CThe [facility] on above:Order Comment: Specimen Type: BLOOD SPECIMENOrdering Facility: [facility] Address:[address] [place], [place] [address]Performed By: #### 15950-0 ####[facility] LABCLIA [id number] [facility]OL[facility] H[facility]PITALAMAYAE[facility] [place], [place] [address]CEK [Catalytic activity/Vol]83 U/OZldfrl43-154PfhqykawzGeorgetown Behavioral Hospital on above:Order Comment: Specimen Type: BLOOD SPECIMENOrdering Facility: [facility] Address:[address] [place], [place] [address]Performed By: #### 50974-9 ####[facility]APH[facility] LABCLIA [id number] [facility] DRIVERHOLY CROSS HOSPITALAMAYAEAST [place], [place] [address]QXG [Catalytic activity/Vol]49 U/LHigh7-38[facility] on above:Order Comment: Specimen Type: BLOOD SPECIMENOrdering Facility: [facility] Address:[address] [place], [place] [address]Performed By: #### 13350-1 ####[facility] LABCLIA [id number] [facility] [place], [place] [address]Wfbri gap [Moles/Vol]17 mmol/LHigh8-15[facility] on above:Order Comment: Specimen Type: BLOOD SPECIMENOrdering Facility: [facility] Address:[address] [place], [place] [address]Performed By: #### 02567- 8 ####[facility]ITALDAPHNE [facility] LABCLIA [id number] OS[facility] DRIVERHOLY CROSS HOSPITALCAYDENSENE[place], [place] [address]LRE [Catalytic activity/Vol]20 U/JKkedgi91-32UohgsjcodGeorgetown Behavioral Hospital on above:Order Comment: Specimen Type: BLOOD SPECIMENOrdering Facility: [facility] Address:[address] [place], [place] [address]Performed By: #### 43887-7 ####[facility] LABCLIA [id number] KERRI JAMAGGYHOLY CROSS HOSPITALCAYDENS[place], [place] [address]Hkazjnjct [Mass/Vol]0.3 mg/dLNormal0.2-1.3CThe [facility] on above:Order Comment: Specimen Type: BLOOD SPECIMENOrdering Facility: [facility] Address:[address] [place], [place] [address]Performed By: #### 08027- 8 ####[facility] LABCLIA [id number] [place], [place] [address]Horfvzg [Mass/Vol]10.2 mg/dLNormal8.5-10.2CThe [facility] on above:Order Comment: Specimen Type: BLOOD SPECIMENOrdering Facility: [facility] Address:[address] [place], [place] [address]Performed By: #### 69375-4 ####[facility] LABCLIA [id number] [place], [place] [address]Iitghjgl [Moles/Vol]101 mmol/UYsoczm59-190ExfelcrsjGeorgetown Behavioral Hospital on above: Order Comment: Specimen Type: BLOOD SPECIMENOrdering Facility: [facility] Address:[address] [place], [place] [address]Performed By: #### 93629- 8 ####[facility] LABCLIA [id number] [place], [place] [address]AF5 [Moles/Vol]20 mmol/EMzf18-75WuqfouiykGeorgetown Behavioral Hospital on above:Order Comment: Specimen Type: BLOOD SPECIMENOrdering Facility: [facility] Address:[address] [place], [place] [address]Performed By: #### 08564-1 ####[facility] LABCLIA [id number] [place], [place] [address]Jttanooyhg [Mass/Vol]0.49 mg/dL Low0.58-0.96[facility] on above:Order Comment: Specimen Type: BLOOD SPECIMENOrdering Facility: [facility] Address:[address] [place], [place] [address]Performed By: #### 14620-1 ####[facility] LABIA [id number] [place] [address] eGFRcr SerPlBld CKD-EPI [id number] mL/min/1.73m???Normal>=60[facility] on above:Order Comment: Specimen Type: BLOOD SPECIMENOrdering Facility: [facility] Address:[address] [place], [place] [address]Tlwnfr Comment: Estimated Glomerular Filtration Rate (eGFR) is [...] accurately reflect actual GFR. Performed By: #### 72837-9 ####[facility] LABCLIA [id number] [place], [place] [address]Kewbhxm [Mass/Vol]248 mg/dLHigh 74-99[facility] on above:Order Comment: Specimen Type: BLOOD SPECIMENOrdering Facility: [facility] Address:[address] [place], [place] [address]Jlurhr Comment: The [place] Diabetes Association (ADA) provides guidance for cutoff [...] Standards of Medical Care in Diabetes 2016, [place] Diabetes Association. Diabetes Care. 2016.39(Suppl 1).Performed By: #### 93586-2 ####[facility] LABCLIA [id number] [place], [place] [address]Ndzzhepuc [Moles/Vol]4.1 mmol/LNormal3.7-5.1CThe [facility] on above:Order Comment: Specimen Type: BLOOD SPECIMENOrdering Facility: [facility] Address:[address] [place], [place] [address]Performed By: #### 68779-1 ####[facility] LABCLIA [id number] [place], [place] [address]Ihmtpmg [Mass/Vol]7.6 g/dLNormal6.3-8.0[facility] on above:Order Comment: Specimen Type: BLOOD SPECIMENOrdering Facility: [facility] Address:[address] [place], [place] [address]Performed By: #### 11779- 8 ####[facility] LABCLIA [id number] [place], [place] [address]Ienycz [Moles/Vol]138 mmol/XNnwzzf325-075XmunqvnlzGeorgetown Behavioral Hospital on above:Order Comment: Specimen Type: BLOOD SPECIMENOrdering Facility: [facility] Address:[address] [place], [place] [address]Performed By: #### 56115-9 ####[facility] LABCLIA [id number] [place], [place] [address]Jykv nitrogen [Mass/Vol]16 mg/dLNormal7-21[facility] on above:Order Comment: Specimen Type: BLOOD SPECIMENOrdering Facility: [facility] Address:[address] [place], [place] [address]Performed By: #### 33447-7 ####[facility] LABCLIA [id number] [place], [place] [address]Snrhmxaa SerPl-mCncon 49-36-4464Sqpnplhn [Mass/Vol]83.6 ng/hUTyjljr02.7-205.1CThe [facility] on above:Order Comment: Specimen Type: BLOOD SPECIMENOrdering Facility: [facility] Address:[address] [place], [place] [address]Performed By: #### 2132-9, 2284-8, 2276-4, 93843-8 ####[facility] LABCLIA [id number] [place] [address] [place] AMERICAFolate SerPl-mCncon 76-31-7850Jpsiem [Mass/Vol]ng/mLNormal>4.7CThe [facility] on above:Order Comment: Specimen Type: BLOOD SPECIMENOrdering Facility: [facility] Address:[address] [place], [place] [address]Result Comment: A result of > 20 ng/mL is not necessarily indicative of a pathologic or treatable condition: it reflects a limitation of the test methodology.Assay reference range: 4.8 to 24.2 ng/mL. Suitable for detection of folate deficiency.Reference:Folate III (Folate III) [package insert V 1.0 Turkmen]. [employer], [place], [place]: March 2015.Performed By: #### 2132-9, 2284-8, 2276-4, 32368-9 ####[facility] LABCLIA [id number] [place] [address] [place] IMMUNOGLOBULINS,IGG,IGA,IGMon 86-54-3397UaB [Mass/Vol]184 mg/sTWpmyxg80-197 [facility] on above:Order Comment: Specimen Type: BLOOD SPECIMENOrdering Facility: [facility] Address:[address] [place], [place] [address]Performed By: #### SERIMM ####[facility] LABCLIA [id number] [place] [address] [place] AMERICAIgG [Mass/Vol]610 mg/pOSfl999-6587IupmaatqoGeorgetown Behavioral Hospital on above:Order Comment: Specimen Type: BLOOD SPECIMENOrdering Facility: [facility] Address:[address] [place] [address]Performed By: #### SERIMM ####[facility] LABCLIA [id number] [place] [address] [place] AMERICAIgM [Mass/Vol]454 mg/dL Kvjj20-602GvqkijmagGeorgetown Behavioral Hospital on above:Order Comment: Specimen Type: BLOOD SPECIMENOrdering Facility: [facility] Address:[address] [place], [place] [address]Performed By: #### SERIMM ####[facility] LABIA [id number] [place] [address] [place] OF AMERICAIron and Iron binding capacity panelon 75-74-9809Ycbo [Mass/Vol]156 ug/mRQhhjpj81-169EbbdgjbksGeorgetown Behavioral Hospital on above:Order Comment: Specimen Type: BLOOD SPECIMENOrdering Facility: [facility] Address:[address] [place], [place] [address]Performed By: #### 2132- 9, 2284-8, 2276-4, 37795-3 ####[facility] LABIA [id number] [place] [address] [place] AMERICAIron binding capacity [Mass/Vol]443 ug/yEYdzs452-779SbvdkwxbbGeorgetown Behavioral Hospital on above:Order Comment: Specimen Type: BLOOD SPECIMENOrdering Facility: [facility] Address:[address] [place] [address] Performed By: #### 2132-9, 2284-8, 2276-4, 63858-3 ####[facility] LABIA [id number] [place] [id number] [place] AMERICAIron/TIBC [Molar ratio]35.2 %Uznicn38.0-57.0[facility] on above:Order Comment: Specimen Type: BLOOD SPECIMENOrdering Facility: [facility] Address:[address] [place], [place] [address]Performed By: #### 2132-9, 2284-8, 2276-4, 27367-7 ####[facility] LABIA [id number] [place] [address] [place] AMERICAVit B12 SerPl-Alleg[facility]y Valley Hospitalon 19-61-6487Tsygeompx (Vitamin B12) [Mass/Vol]694 pg/vAEngbms859-0968MlkvnerbnThe [facility] on above: Order Comment: Specimen Type: BLOOD SPECIMENOrdering Facility: [facility] Address:[address] [place], [place] [address]Zrmuepczt By: #### 2132- 9, 2284-8, 2276-4, 55455-3 ####[facility] LABCLIA [id number] [facility] MEDICAL CENTERNichole [address] [address] [place] AMERICACNPNon 47-62-0145BWKSBujtzuWtnmllibw Clinic ClevelandHCG ( test) IA.rapid Ql (U)Ordered By: Adolfo Kang on 57-79-3763YKX ( test) Ql (U)Negative [facility] HospitalHCG,Urineon 10-71-1857Jtru HCG ( test) Ql (U)NegativeNoUNC Health Lenoir Physician GroupComment on above:Result Comment: PERFORMED BY: [facility] [address] [facility]. [place] [id number] PATHOLOGIST [employer] OPERATOR TIM FOOTE M.D.Performed By: #### UHCG #### [facility] [address] [place] [address] USABI US BREAST LIMITED LEFTon 46-99-0650NG US BREAST LIMITED LEFTThis is a summary [...] SIGNED BY: Yassine Owens M.D.NormalNot AvailableCNPNon 01-18-2025 CNPNNormalMckitrick Hospital25([place])D3 SerPl-mCncon 45-40-462172- hydroxyvitamin D3 [Mass/Vol]32.2 ng/pGWaqrvg63.0-80.0[facility] Comment on above:Order Comment: Specimen Type: BLOOD SPECIMENOrdering Facility: [facility] Address:[address] [place] [address] Performed By: #### 1989-3 ####[facility] LABIA [id number] [place] [address] [place] [facility] BLOOD TB SCREENon 01-11-2025M. tuberculosis tuberculin stim IFN-g Ql (Bld) NegativeNormalCThe MetroHealth SystemComment on above:Order Comment: Specimen Type: BLOOD SPECIMENOrdering Facility: [facility] Address:[address] [place], [place] [address]Performed By: #### INFTBP ####[facility] LABIA [id number] [place] [address] [place] AMERICAMITOGEN MINUS NIL>9.97Normal>=0.50[facility] on above:Order Comment: Specimen Type: BLOOD SPECIMENOrdering Facility: [facility] Address:[address] [place], [place] [address]Performed By: #### INFTBP ####[facility] LABIA [id number] [place] [address] [place] TB GAMMA INTERPRETATIONNormalCThe [facility] on above:Order Comment: Specimen Type: BLOOD SPECIMENOrdering Facility: [facility] Address:[address] [place], [place] [address]Performed By: #### INFTBP ####[facility] LABIA [id number] [address]ETTB NIL0.03 IU/mLNormal<=8.00 [facility] on above:Order Comment: Specimen Type: BLOOD SPECIMENOrdering Facility: [facility] Address:[address] [place], [place] [address]Performed By: #### INFTBP ####[facility] LABIA [id number] [address]TB1 AG MINUS NIL0.01 IU/mLNormal<0.35[facility] on above:Order Comment: Specimen Type: BLOOD SPECIMENOrdering Facility: [facility] Address:[address] [place], [place] [address]Performed By: #### INFTBP ####[facility] LABIA [id number] [address]TB2 AG MINUS NIL0.01 IU/mLNormal<0.35[facility] on above:Order Comment: Specimen Type: BLOOD SPECIMENOrdering Facility: [facility] Address:[address] [place], [place] [address]Performed By: #### INFTBP ####[facility] CENTERIA [id number] [address] panel Auto (Bld)on 01-11-2025 Erythrocyte distribution width (RBC) [Ratio]14.5 %11.5 - 15.0 %[facility] Hematocrit (Bld) [Volume fraction]41.5 %36.0 - 46.0 %[facility] HospitalHemoglobin (Bld) [Mass/Vol]13.8 g/dL11.5 - 15.5 g/dLSelect Medical Trihealth Rehabilitation HospitalInterpretation and review of laboratory resultsAbnormalCSt. [facility] (RBC) [Entitic mass]32.2 pg26.0 - 34.0 pgCSelect Medical Specialty Hospital - Columbus SouthHC (RBC) [Mass/Vol]33.3 g/dL30.5 - 36.0 g/dL [facility] HospitalV (RBC) [Entitic vol]96.7 fL80.0 - 100.0 [facility] Nucleated RBC (Bld) [#/Vol]NINFCBlanchard Valley Health System Blanchard Valley HospitalPlatelet mean volume (Bld) [Entitic vol]10.6 fL9.0 - 12.7 fLCBlanchard Valley Health System Blanchard Valley HospitalPlatelets (Bld) [#/Vol]265 10*3/[facility] HospitalRBC (Bld) [#/Vol]4.29 10*6/uL3.90 - 5.20 m/[facility] City HospitalWBC (Bld) [#/Vol]12.61 10*3/uLMercy Health Clermont Hospital Erythrocyte distribution width (RBC) [Ratio]14.5 %Lsipjl98.5-15.0[facility] on above:Order Comment: Specimen Type: BLOOD SPECIMENOrdering Facility: [facility] Address:[address] [place], [place] [address]Performed By: #### 75982-7 ####[facility] LABIA [id number] [place], [place] [address]Vyqcvgylpn (Bld) [Volume fraction]41.5 %Quvszi81.0-46.0[facility] on above:Order Comment: Specimen Type: BLOOD SPECIMENOrdering Facility: [facility] Address:[address] [place], [place] [address]Performed By: #### 66720-3 ####[facility] LABCLIA [id number] [place], [place] [address]Moujpcdgyx (Bld) [Mass/Vol]13.8 g/aVDpcsqo85.5-15.5 [facility] on above:Order Comment: Specimen Type: BLOOD SPECIMENOrdering Facility: [facility] Address:[address] [place], [place] [address]Performed By: #### 23076-3 ####[facility] LABCLIA [id number] [place], [place] [address]GFX (RBC) [Entitic mass]32.2 imBlzxad24.0-34.0[facility] on above: Order Comment: Specimen Type: BLOOD SPECIMENOrdering Facility: [facility] Address:[address] [place], [place] [address]Performed By: #### 69662- 2 ####[facility] LABIA [id number] [place], [place] [address]FLHE (RBC) [Mass/Vol]33.3 g/cKXzlflm59.5-36.0[facility] on above:Order Comment: Specimen Type: BLOOD SPECIMENOrdering Facility: [facility] Address:[address] [place], [place] [address]Performed By: #### 38569-9 ####[facility] LABBRATTLEBORO [facility] [id number] [place], [place] [address]TKR (RBC) [Entitic vol]96.7 mPAjjbbl53.0-100.0[facility] on above: Order Comment: Specimen Type: BLOOD SPECIMENOrdering Facility: [facility] Address:[address] [place], [place] [address]Performed By: #### 93560- 2 ####[facility] LABIA [id number] [place], [place] [address]Ravfnmvgk RBC (Bld) [#/Vol]10*3/uLNormal<0.01[facility] on above:Order Comment: Specimen Type: BLOOD SPECIMENOrdering Facility: [facility] Address:[address] [place], [place] [address]Performed By: #### 31175-9 ####[facility] LABIA [id number] [place], [place] [address]Xjkkhmxw mean volume (Bld) [Entitic vol]10.6 fLNormal9.0-12.7CThe [facility] on above:Order Comment: Specimen Type: BLOOD SPECIMENOrdering Facility: [facility] Address:[address] [place] [address] Performed By: #### 41800-0 ####[facility] LABCLIA [id number] [place], [place] [address]Rnhzwxrwd (Bld) [#/Vol]265 10*3/iHDjofam823-533PzcblryeiGeorgetown Behavioral Hospital on above:Order Comment: Specimen Type: BLOOD SPECIMENOrdering Facility: [facility] Address:[address] [place], [place] [address]Performed By: #### 47150-0 ####[facility] LABCLIA [id number] [place], [place] [address]REV (Bld) [#/Vol]4.29 10*6/uLNormal3.90-5.20[facility] on above:Order Comment: Specimen Type: BLOOD SPECIMENOrdering Facility: [facility] Address:[address] [place], [place] [address]Performed By: #### [id number] ####[facility] LABIA [id number] [place], [place] [address]ZYH (Bld) [#/Vol]12.61 10*3/uLHigh3.70-11.00[facility] on above: Order Comment: Specimen Type: BLOOD SPECIMENOrdering Facility: [facility] Address:[address] [place], [place] [address]Performed By: #### [id number]- [id number] ####[facility] LABIA [id number] [place], [place] [address]RGV SerPl-mCncon [id number] [Mass/Vol]mg/LNormal<0.9 [facility] on above:Order Comment: Specimen Type: BLOOD SPECIMENOrdering Facility: [facility] Address:[address] [place], [place] [address]Performed By: #### 1987-5, 2131-9 ####[facility] LABCLIA [id number] JERAD BERRIOS [place] [id number] [place] OF AMERICAComprehensive metabolic 2000 panelOrdered By: Jossejarocho Merlos on 17-16-0511Bzuonko [Mass/Vol]3.9 g/dL3.9 - 4.9 g/dLSerena ClinicALP [Catalytic activity/Vol]83 U/L34 - 123 U/LCleveland ClinicALT [Catalytic activity/Vol]42 U/LHigh7 - 38 U/LCleveland ClinicAnion gap [Moles/Vol]10 mmol/L8 - 15 mmol/L Serena ClinicAST [Catalytic activity/Vol]22 U/L13 - 35 U/LC[facility] Bilirubin [Mass/Vol]0.2 mg/dL0.2 - 1.3 mg/dLSerena ClinicCalcium [Mass/Vol] 9.7 mg/dL8.5 - 10.2 mg/dLSerena ClinicChloride [Moles/Vol]103 mmol/L98 - 107 mmol/LCleveland ClinicCO2 [Moles/Vol]23 mmol/L22 - 30 mmol/LCleveland [facility] Creatinine [Mass/Vol]0.50 mg/dLLow0.58 - 0.96 mg/dLSelect Medical Trihealth Rehabilitation HospitalGFR/1.73 sq M.predicted among non-blacks MDRD (S/P/Bld) [...] eGFRmay not accurately reflect actual GFR.Glucose [Mass/Vol]221 mg/wHDusm17 - 99 mg/dLSelect Medical Trihealth Rehabilitation HospitalComment on above:The German Diabetes Association (ADA) provides guidance for cutoff [...] Standards of Medical Care in Diabetes 2016, [place] Diabetes Association. Diabetes Care. 2016.39(Suppl 1). Interpretation and review of laboratory resultsAbnormalCleveland ClinicPotassium [Moles/Vol]4.1 mmol/L3.7 - 5.1 mmol/LCmartins ferry hospital ClinicProtein [Mass/Vol]6.8 g/dL 6.3 - 8.0 g/dLSerena ClinicSodium [Moles/Vol]136 mmol/L136 - 144 mmol/L [facility] HospitalUrea nitrogen [Mass/Vol]15 mg/dL7 - 21 mg/dLSelect Medical Cleveland Clinic Rehabilitation Hospital, BeachwoodComprehensive metabolic 2000 panelon 62-42-8797Jodgjql [Mass/Vol]3.9 g/dLNormal3.9-4.9CThe [facility] on above:Order Comment: Specimen Type: BLOOD SPECIMENOrdering Facility: [facility] Address:[address] [place] [address]Odwxjnfoh By: #### 30446- 8 ####[facility] LABCLIA [id number] [place], [place] [address]GII [Catalytic activity/Vol]83 U/VHsorde14-384EltjjphzhGeorgetown Behavioral Hospital on above:Order Comment: Specimen Type: BLOOD SPECIMENOrdering Facility: [facility] Address:[address] [place], [place] [address]Ypzsfywpb By: #### 49443-2 ####[facility] LABCLIA [id number] [place], [place] [address]QPK [Catalytic activity/Vol]42 U/LHigh7-38[facility] on above:Order Comment: Specimen Type: BLOOD SPECIMENOrdering Facility: [facility] Address:[address] [place], [place] [address]Performed By: #### 75433- 8 ####[facility] LABCLIA [id number] [facility] JA DRIVERHOLY CROSS HOSPITALCAYDENSENECA, [place] [address]Skkgq gap [Moles/Vol]10 mmol/LNormal8-15[facility] on above:Order Comment: Specimen Type: BLOOD SPECIMENOrdering Facility: [facility] Address:[address] [place], [place] [address]Performed By: #### 06912-5 ####[facility] LABCLIA [id number] [place], [place] [address]JAM [Catalytic activity/Vol]22 U/NPxceos65-49GpxcalsjcGeorgetown Behavioral Hospital on above:Order Comment: Specimen Type: BLOOD SPECIMENOrdering Facility: [facility] Address:[address] [place], [place] [address]Performed By: #### 80333-1 ####[facility] LABCLIA [id number] [place] [address] Bilirubin [Mass/Vol]0.2 mg/dLNormal0.2-1.3CThe [facility] Hospital on above:Order Comment: Specimen Type: BLOOD SPECIMENOrdering Facility: [facility] Address:[address] [place], [place] [address]Performed By: #### 42247-1 ####[facility] LABCLIA [id number] [facility]OSPITALMAGGYHOLY CROSS HOSPITALAMAYAEAST [place], [place] [address]Lltremr [Mass/Vol]9.7 mg/dLNormal8.5-10.2CThe [facility] on above:Order Comment: Specimen Type: BLOOD SPECIMENOrdering Facility: [facility] Address:[address] [place], [place] [address]Performed By: #### 49652-3 ####[facility] LABCLIA [id number] [facility] MEDICAL CENTERAMAYAEAST [place], [place] [address]Ngdhxkfx [Moles/Vol]103 mmol/PGqbqgk45-039LaqcmxljmGeorgetown Behavioral Hospital on above: Order Comment: Specimen Type: BLOOD SPECIMENOrdering Facility: [facility] Address:[address] [place], [place] [address]Performed By: #### 32873- 8 ####[facility] LABCLIA [id number] [place], [place] [address]MU4 [Moles/Vol]23 mmol/BImccti31-65LqiuyrzxjGeorgetown Behavioral Hospital on above:Order Comment: Specimen Type: BLOOD SPECIMENOrdering Facility: [facility] Address:[address] [place], [place] [address]Performed By: #### 53227-9 ####[facility] LABCLIA [id number] [place], [place] [address]Mqnpagsgug [Mass/Vol]0.50 mg/dL Low0.58-0.96[facility] on above:Order Comment: Specimen Type: BLOOD SPECIMENOrdering Facility: [facility] Address:[address] [place], [place] [address]Performed By: #### 70487-5 ####[facility] LABCLIA [id number] [place] [address] eGFRcr SerPlBld CKD-EPI 1545114 mL/min/1.73m???Normal>=60[facility] on above:Order Comment: Specimen Type: BLOOD SPECIMENOrdering Facility: [facility] Address:[address] [place], [place] [address]Result Comment: Estimated Glomerular Filtration Rate (eGFR) is [...] accurately reflect actual GFR. Performed By: #### 89612-1 ####[facility] LABCLIA [id number] [place], [place] [address]Elrtavc [Mass/Vol]221 mg/dLHigh 74-99[facility] on above:Order Comment: Specimen Type: BLOOD SPECIMENOrdering Facility: [facility] Address:[address] [place], [place] [address]Result Comment: The German Diabetes Association (ADA) provides guidance for cutoff [...] Standards of Medical Care in Diabetes 2016, [place] Diabetes Association. Diabetes Care. 2016.39(Suppl 1).Performed By: #### 00974-8 ####[facility] LABCLIA [id number] [place], [place] [address]Eucplhktp [Moles/Vol]4.1 mmol/LNormal3.7-5.1CThe [facility] on above:Order Comment: Specimen Type: BLOOD SPECIMENOrdering Facility: [facility] Address:[address] [place], [place] [address]Performed By: #### 89514-3 ####[facility] LABCLIA [id number] [place], [place] [address]Mfosajz [Mass/Vol]6.8 g/dLNormal6.3-8.0[facility] on above:Order Comment: Specimen Type: BLOOD SPECIMENOrdering Facility: [facility] Address:[address] [place], [place] [address]Performed By: #### 63527- 8 ####[facility] LABCLIA [id number] [place], [place] [address]Jvbvep [Moles/Vol]136 mmol/JYxpebv096-544PtwnrgpieGeorgetown Behavioral Hospital on above:Order Comment: Specimen Type: BLOOD SPECIMENOrdering Facility: [facility] Address:[address] [place], [place] [address]Performed By: #### 83667-4 ####[facility] LABCLIA [id number] [place], [place] [address]Dauj nitrogen [Mass/Vol]15 mg/dLNormal7-[facility] on above:Order Comment: Specimen Type: BLOOD SPECIMENOrdering Facility: [facility] Address:[address] [place], [place] [address]Performed By: #### 86350-3 ####[facility] LABIA [id number] [place], [place] [address]FKL Westergren method (Bld) [Velocity]on 09-74-1713KEI (Bld) [Velocity]34 mm/hHigh0-20[facility] on above:Order Comment: Specimen Type: BLOOD SPECIMENOrdering Facility: [facility] Address:[address] [place], [place] [address]Performed By: #### 4537-7 ####[facility] [id number] [place] [address] [place]BV core Ab Ser Qlon 01-11-2025 HBV core Ab Ql (S)NegativeNormalNegativeGeorgetown Behavioral Hospital on above:Order Comment: Specimen Type: BLOOD SPECIMENOrdering Facility: [facility] Address:[address] [place], [place] [address]Result Comment: No evidence of current or past infection with Hepatitis B virus. Should recent infection be suspected, repeat testing may be considered 3-4 weeks after this draw.Performed By: #### 5195-3, 77198-6, 97688-5 ####[facility] LABIA [id number] [address] [place]AHBV surface Ab Ql (S)on 47-92-3325FRN surface Ab Qn (S)177.77 mIU/mLNormalGeorgetown Behavioral Hospital on above:Order Comment: Specimen Type: BLOOD SPECIMENOrdering Facility: [facility] Address:[address] [place], [place] [address]Result Comment: <8 mIU/mL: No serological evidence of immunity to Hepatitis B Virus.>/= 8 to <12 mIU/mL: No serological evidence of immunity to Hepatitis B Virus.>/= 12 mIU/mL: Consistentwith serological evidence of immunity to Hepatitis B Virus.Performed By: #### 5195-3, 38413-7, 68597-9 ####[facility] LABIA [id number] VIL[place] [id number] [place] AMERICAHBV surface Ab Ser Ql on 29-35-2581RUD surface Ab Ql (S)PositiveNormalCThe [facility] Comment on above:Order Comment: Specimen Type: BLOOD SPECIMENOrdering Facility: [facility] Address:[address] [place], [place] [address]Result Comment: Consistent with serological evidence of immunity to Hepatitis B Virus. Performed By: #### 5195-3, 50153-2, 09683-1 ####[facility] LABIA [id number] VILLE [id number] [place] AMERICAHBV surface Ag Ser Qlon 47-09-9839QHL surface Ag Ql (S)NegativeNormal NegativeGeorgetown Behavioral Hospital on above:Order Comment: Specimen Type: BLOOD SPECIMENOrdering Facility: [facility] Address:[address] [place], [place] [address]Performed By: #### 5195-3, 18573-5, 94940-7 ####[facility] LABBRATTLE[facility] [id number] VILLE [id number] [place] AMERICAHCV Ab Ser Qlon 89-95-1884ILS Ab Ql (S)NegativeNormalNegativeGeorgetown Behavioral Hospital on above:Order Comment: Specimen Type: BLOOD SPECIMENOrdering Facility: [facility] Address:[address] [place], [place] [address]Result Comment: The result suggests no evidence of infection with Hepatitis C virus. Should recent i nfection be suspected, repeat testing may be considered 4-6 weeks after this draw.Performed By: #### 69327-9 ####[facility] LABCLIA [id number] [place] [id number] [place] Vit B12 SerPl-mCncon 72-61-8537Xtjoyjxap (Vitamin B12) [Mass/Vol]710 pg/mLNormal 232-1245CThe [facility] on above:Order Comment: Specimen Type: BLOOD SPECIMENOrdering Facility: [facility] Address:[address] [place], [place] [address]Performed By: #### 1988-5, 2132-9 ####[facility] LABCLIA [id number] [address] OF GRANT HOSPITALCB W Auto Differential panel (Bld)on 11-29-2024 Basophils (Bld) [#/Vol]0.09 10*3/uLNormal<0.11CThe [facility] on above:Order Comment: Specimen Type: BLOOD SPECIMENOrdering Facility: [facility] Address:[address] [place] [address] Performed By: #### 34425-0 ####[facility] LABCLIA [id number] [place], [place] [address]Jvwjjqalm/100 WBC (Bld)0.7 % NormalGeorgetown Behavioral Hospital on above:Order Comment: Specimen Type: BLOOD SPECIMENOrdering Facility: [facility] Address:[address] [place], [place] [address]Performed By: #### 44542-3 ####[facility] LABCLIA [id number] [place] [address] Differential cell count method Nom (Bld)AutoNormalCThe [facility] Comment on above:Order Comment: Specimen Type: BLOOD SPECIMENOrdering Facility: [facility] Address:[address] [place] [address] Performed By: #### 25717-7 ####[facility] LABCLIA [id number] [place], [place] [address]Wmrkyzcgdkx (Bld) [#/Vol]0.09 10*3/uLNormal<0.46[facility] on above:Order Comment: Specimen Type: BLOOD SPECIMENOrdering Facility: [facility] Address:[address] [place], [place] [address]Performed By: #### 86529-9 ####[facility] LABCLIA [id number] [place], [place] [address]Gbcpnyfvnrl/100 WBC (Bld)0.7 %NormalGeorgetown Behavioral Hospital on above:Order Comment: Specimen Type: BLOOD SPECIMENOrdering Facility: [facility] Address:[address] [place], [place] [address]Performed By: #### 51727-9 ####[facility] LABIA [id number] [place], [place] [address]Djytbaqepkv distribution width (RBC) [Ratio]14.8 %Klaykq23.5-15.0[facility] on above: Order Comment: Specimen Type: BLOOD SPECIMENOrdering Facility: [facility] Address:[address] [place], [place] [address]Performed By: #### 50192- 8 ####[facility] LABCLIA [id number] [place], [place] [address]Xwtncbblsk (Bld) [Volume fraction]42.9 %Wtnwmv70.0-46.0 [facility] on above:Order Comment: Specimen Type: BLOOD SPECIMENOrdering Facility: [facility] Address:[address] [place], [place] [address]Performed By: #### 35033-8 ####[facility] LABIA [id number] [place], [place] [address]Jvihmwcbcy (Bld) [Mass/Vol]14.0 g/rSEiuenx54.5-15.5CThe [facility] on above: Order Comment: Specimen Type: BLOOD SPECIMENOrdering Facility: [facility] Address:[address] [place], [place] [address]Performed By: #### 98196- 8 ####[facility] LABCLIA [id number] [place], [place] [address]Krrtkzgr granulocytes (Bld) [#/Vol]0.18 10*3/uLHigh<0.10 [facility] on above:Order Comment: Specimen Type: BLOOD SPECIMENOrdering Facility: [facility] Address:[address] [place], [place] [address]Performed By: #### 26379-1 ####[facility] LABIA [id number] [place], [place] [address]Ednpwarf granulocytes/100 WBC (Bld)1.5 %[facility] on above: Order Comment: Specimen Type: BLOOD SPECIMENOrdering Facility: [facility] Address:[address] [place], [place] [address]Performed By: #### 42134- 8 ####[facility] LABCLIA [id number] [place], [place] [address]Pbmsytwuwmq (Bld) [#/Vol]1.99 10*3/uLNormal1.00-4.00 [facility] on above:Order Comment: Specimen Type: BLOOD SPECIMENOrdering Facility: [facility] Address:[address] [place], [place] [address]Performed By: #### 56406-5 ####[facility] LABIA [id number] [place], [place] [address]Zksdmpafmzl/100 WBC (Bld)16.4 %NormalGeorgetown Behavioral Hospital on above:Order Comment: Specimen Type: BLOOD SPECIMENOrdering Facility: [facility] Address:[address] [place], [place] [address]Performed By: #### 70626-5 ####[facility] LABCLIA [id number] [place], [place] [address]QWF (RBC) [Entitic mass]31.7 tsHscjrw89.0-34.0[facility] on above:Order Comment: Specimen Type: BLOOD SPECIMENOrdering Facility: [facility] Address:[address] [place], [place] [address]Performed By: #### 81094-5 ####[facility] LABCLIA [id number] [place], [place] [address]LYXP (RBC) [Mass/Vol]32.6 g/yCZrbpgx36.5-36.0[facility] on above: Order Comment: Specimen Type: BLOOD SPECIMENOrdering Facility: [facility] Address:[address] [place], [place] [address]Performed By: #### 97023- 8 ####[facility] LABCLIA [id number] [place], [place] [address]MNL (RBC) [Entitic vol]97.1 pWJybycb96.0-100.0[facility] on above:Order Comment: Specimen Type: BLOOD SPECIMENOrdering Facility: [facility] Address:[address] [place], [place] [address]Performed By: #### 46196-2 ####[facility] LABCLIA [id number] [place], [place] [address]Mnhoxbxth (Bld) [#/Vol]0.67 10*3/uLNormal<0.87[facility] on above:Order Comment: Specimen Type: BLOOD SPECIMENOrdering Facility: [facility] Address:[address] [place], [place] [address]Performed By: #### 14800- 8 ####[facility] LABIA [id number] [place], [place] [address]Ltfrkuzkf/100 WBC (Bld)5.5 %NormalCleveland Clinic ClevelandComment on above:Order Comment: Specimen Type: BLOOD SPECIMENOrdering Facility: [facility] Address:[address] [place], [place] [address]Performed By: #### 55028-2 ####[facility] LABCLIA [id number] [place], [place] [address]Vowbuxdngtx (Bld) [#/Vol]9.15 10*3/uLHigh1.45-7.50[facility] on above:Order Comment: Specimen Type: BLOOD SPECIMENOrdering Facility: [facility] Address:[address] [place], [place] [address]Performed By: #### 05082-0 ####[facility] LABCLIA [id number] [place], [place] [address]Hefnzhcgjme/100 WBC (Bld)75.2 %NormalGeorgetown Behavioral Hospital on above:Order Comment: Specimen Type: BLOOD SPECIMENOrdering Facility: [facility] Address:[address] [place], [place] [address]Performed By: #### 43960-0 ####[facility] LABCLIA [id number] [place], [place] [address]Ajsftibty RBC (Bld) [#/Vol] 10*3/uLNormal<0.01[facility] on above:Order Comment: Specimen Type: BLOOD SPECIMENOrdering Facility: [facility] Address:[address] [place], [place] [address]Performed By: #### 13958-7 ####[facility] LABCLIA [id number] [place], [place] [address]Lbhjfxufm RBC/100 WBC (Bld) [Ratio]0.0 /100 WBCNormal [facility] on above:Order Comment: Specimen Type: BLOOD SPECIMENOrdering Facility: [facility] Address:[address] [place], [place] [address]Performed By: #### 38640-5 ####[facility] LABCLIA [id number] [place], [place] [address]Cqjjqkxk mean volume (Bld) [Entitic vol]9.7 fLNormal9.0-12.7CThe [facility] on above:Order Comment: Specimen Type: BLOOD SPECIMENOrdering Facility: [facility] Address:[address] [place] [address] Performed By: #### 87647-1 ####[facility] LABCLIA [id number] [place], [place] [address]Ddjdionzt (Bld) [#/Vol]281 10*3/kIHpessf195-443GfmozztaeGeorgetown Behavioral Hospital on above:Order Comment: Specimen Type: BLOOD SPECIMENOrdering Facility: [facility] Address:[address] [place], [place] [address]Performed By: #### 60160-5 ####[facility] LABCLIA [id number] [place], [place] [address]SNA (Bld) [#/Vol]4.42 10*6/uLNormal3.90-5.20[facility] on above:Order Comment: Specimen Type: BLOOD SPECIMENOrdering Facility: [facility] Address:[address] [place], [place] [address]Performed By: #### 95860-0 ####[facility] LABCLIA [id number] [place], [place] [address]ZML (Bld) [#/Vol]12.17 10*3/uLHigh3.70-11.00[facility] on above: Order Comment: Specimen Type: BLOOD SPECIMENOrdering Facility: [facility] Address:[address] [place], [place] [address]Performed By: #### 98955- 8 ####[facility] LABCLIA [id number] [place], [place] [address]TEMDATzn 36-15-0450ZFPUUSCkkchiNdjkxnirvPremier [facility] metabolic 2000 panelon 00-69-2511Tstgsnm [Mass/Vol]4.1 g/dLNormal 3.9-4.9CThe [facility] on above:Order Comment: Specimen Type: BLOOD SPECIMENOrdering Facility: [facility] Address:[address] [place], [place] [address]Performed By: #### 31910-9 ####[facility] LABCLIA [id number] [place], [place] [address]YVN [Catalytic activity/Vol]61 U/YFrbqin02-375SjvimydjpGeorgetown Behavioral Hospital on above:Order Comment: Specimen Type: BLOOD SPECIMENOrdering Facility: [facility] Address:[address] [place], [place] [address]Performed By: #### 52072-4 ####[facility] LABCLIA [id number] [place], [place] [address]CUV [Catalytic activity/Vol]39 U/LHigh7-38[facility] on above:Order Comment: Specimen Type: BLOOD SPECIMENOrdering Facility: [facility] Address:[address] [place], [place] [address]Performed By: #### 47087-0 ####[facility] LABCLIA [id number] [place], [place] [address]Msxna gap [Moles/Vol]13 mmol/LNormal8-15[facility] on above:Order Comment: Specimen Type: BLOOD SPECIMENOrdering Facility: [facility] Address:[address] [place], [place] [address]Performed By: #### 62352- 8 ####[facility] LABCLIA [id number] [facility] [place], [place] [address]WHC [Catalytic activity/Vol]16 U/OXgsxin59-68LrouiccjpGeorgetown Behavioral Hospital on above:Order Comment: Specimen Type: BLOOD SPECIMENOrdering Facility: [facility] Address:[address] [place], [place] [address]Performed By: #### 50003-6 ####[facility] LABCLIA [id number] [place], [place] [address]Qkkkofjpi [Mass/Vol]0.2 mg/dLNormal0.2-1.3CThe [facility] on above:Order Comment: Specimen Type: BLOOD SPECIMENOrdering Facility: [facility] Address:[address] [place], [place] [address]Performed By: #### 92400- 8 ####[facility] LABCLIA [id number] [place], [place] [address]Uaddhzq [Mass/Vol]9.7 mg/dLNormal8.5-10.2CThe [facility] on above:Order Comment: Specimen Type: BLOOD SPECIMENOrdering Facility: [facility] Address:[address] [place], [place] [address]Performed By: #### 13075-1 ####[facility] LABCLIA [id number] [place], [place] [address]Qtrtodgg [Moles/Vol]102 mmol/L Lsetgt34-764RwpaunnvsGeorgetown Behavioral Hospital on above:Order Comment: Specimen Type: BLOOD SPECIMENOrdering Facility: [facility] Address:[address] [place], [place] [address]Performed By: #### 75657-7 ####[facility] LABCLIA [id number] [place] [address] CO2 [Moles/Vol]23 mmol/AWhouqb30-02AdreyvopgGeorgetown Behavioral Hospital on above: Order Comment: Specimen Type: BLOOD SPECIMENOrdering Facility: [facility] Address:[address] [place], [place] [address]Performed By: #### 91541- 8 ####[facility] LABCLIA [id number] [place] [place], [place] [address]Kbtyiatqmw [Mass/Vol]0.58 mg/dLNormal0.58-0.96[facility] on above:Order Comment: Specimen Type: BLOOD SPECIMENOrdering Facility: [facility] Address:[address] [place] [id number] By: #### [id number] ####[facility] LABCLIA [id number] [place], [place] [address]Omjxdmrddn and Glomerular filtration rate.predicted panel (S/P/Bld)115 mL/min/1.73m???Normal >=60[facility] on above:Order Comment: Specimen Type: BLOOD SPECIMENOrdering Facility: [facility] Address:[address] [place] [id number] Comment: Estimated Glomerular Filtration Rate (eGFR) is calculated using the 2020 CKD-EPI creatinine equation. This equation utilizes serum creatinine, sex, and age as parameters. The creatinine assay has traceable calibration to isotope dilution-mass spectrometry. Refer to KDIGO guidelines for clinical interpretation. In patients with unstable renal function, e.g. those with acute kidney injury, the eGFR may not accurately reflect actual GFR.Performed By: #### [id number] ####[facility] LABCLIA [id number] [place], [place] [address]Qgmhqlv [Mass/Vol]233 mg/vTQbnu40-92UlooblopmGeorgetown Behavioral Hospital on above:Order Comment: Specimen Type: BLOOD SPECIMENOrdering Facility: [facility] Address:[address] [place] [address]Fyrmwl Comment: The German Diabetes Association (ADA) provides guidance for cutoff [...] Standards of Medical Care in Diabetes 2016, German Diabetes Association. Diabetes Care. 2016.39(Suppl 1).Performed By: #### 18210-5 ####[facility] LABCLIA [id number] [place], [place] [address]Ilkqkctdt [Moles/Vol]4.0 mmol/LNormal3.7-5.1CThe [facility] on above: Order Comment: Specimen Type: BLOOD SPECIMENOrdering Facility: [facility] Address:[address] [place], [place] [address]Performed By: #### 09538- 8 ####[facility] LABCLIA [id number] [place], [place] [address]Nqggqmw [Mass/Vol]7.0 g/dLNormal6.3-8.0[facility] on above:Order Comment: Specimen Type: BLOOD SPECIMENOrdering Facility: [facility] Address:[address] [place], [place] [address]Performed By: #### 12705-1 ####[facility] LABCLIA [id number] [place], [place] [address]Yirxpe [Moles/Vol]138 mmol/L Igodjp458-306ZwexkvfjwGeorgetown Behavioral Hospital on above:Order Comment: Specimen Type: BLOOD SPECIMENOrdering Facility: [facility] Address:[address] [place], [place] [address]Performed By: #### 77652-1 ####[facility] LABIA [id number] [place] [address] Urea nitrogen [Mass/Vol]16 mg/dLNormal7-21[facility] on above:Order Comment: Specimen Type: BLOOD SPECIMENOrdering Facility: [facility] Address:[address] [place], [place] [address]Performed By: #### 96094-6 ####[facility] LABIA [id number] [place], [place] [address]Q[address] Mary's Hospitalpatt 20-52-8132Vzgkfonn [Mass/Vol] 63.6 ng/mURikaqm35.7-205.1CThe [facility] on above:Order Comment: Specimen Type: BLOOD SPECIMENOrdering Facility: [facility] Address:[address] [place], [place] [address]Performed By: #### 2284- 8, 37822-2, 6-4, 9 ####[facility] LABCLIA [id number] [place] [address] [place] OF AMERICAFolate SerPl-mCncon 81-23-7132Cwbrly [Mass/Vol]ng/mLNormal>4.7CThe [facility] on above:Order Comment: Specimen Type: BLOOD SPECIMENOrdering Facility: [facility] Address:[address] [place], [place] [address]Result Comment: A result of > 20 ng/mL is not necessarily indicative of a pathologic or treatable condition: it reflects a limitation of the test methodology.Assay reference range: 4.8 to 24.2 ng/mL. Suitable for detection of folate deficiency.Reference:Folate III (Folate III) [package insert V 1.0 Turkmen]. [facility], [place], [place]: March 2015.Performed By: #### 2284-8, 62557-8, 2275-4, 2132-01 ####[facility] LABCLIA [id number] [place] [address] [place] IMMUNOGLOBULINS,IGG,IGA,IGMon 04-43-4007IiU [Mass/Vol]169 mg/iAXkccfz55-687 [facility] on above:Order Comment: Specimen Type: BLOOD SPECIMENOrdering Facility: [facility] Address:[address] [place], [place] [address]Performed By: #### SERIMM ####[facility] LABCLIA [id number] [place] [address] [place] AMERICAIgG [Mass/Vol]596 mg/sUNip086-5575SulhmxevbGeorgetown Behavioral Hospital on above:Order Comment: Specimen Type: BLOOD SPECIMENOrdering Facility: [facility] Address:[address] [place], [place] [address]Performed By: #### SERIMM ####[facility] LABCLIA [id number] [address] [address] [place] OF AMERICAIgM [Mass/Vol]410 mg/dL Xpnw93-400PjdclaxknMckitrick HospitalComment on above:Order Comment: Specimen Type: BLOOD SPECIMENOrdering Facility: [facility] Address:[address] [place], [place] [address]Performed By: #### SERIMM ####[facility] LABCLIA [id number] [address] [address] [place] OF AMERICAIron and Iron binding capacity panelon 42-14-5455Xuuo [Mass/Vol]154 ug/sXMmrohh85-762QssupzvqgGeorgetown Behavioral Hospital on above:Order Comment: Specimen Type: BLOOD SPECIMENOrdering Facility: [facility] Address:[address] [place], [place] [address]Performed By: #### 2284- 8, 82688-1, 6-4, 9 ####[facility] LABCLIA [id number] [address] [address] [place] OF AMERICAIron binding capacity [Mass/Vol]363 ug/oQXeamyq577-122ClbccjdahMckitrick Hospital Comment on above:Order Comment: Specimen Type: BLOOD SPECIMENOrdering Facility: [facility] Address:[address] [place] [address] Performed By: #### 2284-8, 20019-2, 6-4, 9 ####[facility] LABIA [id number] [place] [address] [place] AMERICAIron/TIBC [Molar ratio]42.4 %Rderwu68.0-57.0[facility] on above:Order Comment: Specimen Type: BLOOD SPECIMENOrdering Facility: [facility] Address:[address] [place], [place] [address]Performed By: #### 2284-8, 06611-5, 4, 2132-01 ####[facility] LABCLIA [id number] [place] [address] [place] GRANT HOSPITALVit B12 SerP-ncon 09-50-8578Xfxgczsiz (Vitamin B12) [Mass/Vol]775 pg/tEAisdps050-2976HrdnifdluThe Jewish Hospital on above: Order Comment: Specimen Type: BLOOD SPECIMENOrdering Facility: [facility] Address:[address] [place], [place] [address]Performed By: #### 2284- 8, 00984-8, 2275-08, 2132-01 ####[facility] LABCLIA [id number] STATES OF GRANT HOSPITALCNPNon 38-88-0782BLOWOsbkijCqxbkqbbn Clinic ClevelandCNPNon 55-42-3181HWGXDlmcgm Mckitrick HospitalCNPNon 67-53-1877MQRLYuxslsTrpeganbl Clinic [place] 25([place])D3 [facility]'s Hospitalon 41-26-390005629977-arwezwcctdoryn D3 [Mass/Vol]30.9 ng/mLLow 31.0-80.0[facility] on above:Order Comment: Specimen Type: BLOOD SPECIMENOrdering Facility: [facility] Address:[address] [place], [place] [address]Result Comment: Classification of 25 [place] Vitamin D status:Deficiency/Insufficiency: < or = 30 ng/ml.Sufficiency/Optimal Levels: 31-80 ng/mLToxicity: > 100 ng/mL.Test performed by chemiluminescent immunoassay. Performed By: #### 1989-3 ####[facility] LABCLIA [id number] [place] [address] [place] 25-hydroxyvitamin D3 [Mass/Vol]on 39-83-4793Touehucukswscb and review of laboratory resultsAbnormalCBlanchard Valley Health System Blanchard Valley HospitalThe reference range interval was based on an analysis of samples from healthy adults and may not pertain to children from 0-18 years old. McKitrick HospitalC-REACTIVE PROTEINon 79-44-9597LAW [Mass/Vol] mg/dLNINF - 0.9 mg/dLWright-Patterson Medical CenterC panel Auto (Bld)on 10-02-2024 Erythrocyte distribution width (RBC) [Ratio]16.2 %High11.5 - 15.0 %[facility] HospitalHematocrit (Bld) [Volume fraction]41.3 %36.0 - 46.0 %[facility] Hemoglobin (Bld) [Mass/Vol]13.7 g/dL11.5 - 15.5 g/dLSelect Medical Trihealth Rehabilitation Hospital Interpretation and review of laboratory resultsAbnormalCSelect Medical Specialty Hospital - Columbus SouthH (RBC) [Entitic mass]31.1 pg26.0 - 34.0 pgClevelRedwood LLCHC (RBC) [Mass/Vol]33.2 g/dL30.5 - 36.0 g/dLSelect Medical Trihealth Rehabilitation HospitalMCV (RBC) [Entitic vol]93.7 fL80.0 - 100.0 fLCleveland ClinicNucleated RBC (Bld) [#/Vol]NINFCleveland ClinicPlatelet mean volume (Bld) [Entitic vol]10.1 fL9.0 - 12.7 fLCleveland ClinicPlatelets (Bld) [#/Vol]265 10*3/uLSelect Medical Trihealth Rehabilitation HospitalRBC (Bld) [#/Vol]4.41 10*6/uL3.90 - 5.20 m/uL [facility] Rehabilitation HospitalWBC (Bld) [#/Vol]10.07 10*3/uLMcKitrick Hospital Erythrocyte distribution width (RBC) [Ratio]16.2 %High11.5-15.0[facility] on above:Order Comment: Specimen Type: BLOOD SPECIMENOrdering Facility: [facility] Address:[address] [place], [place] [address]Ltbzzluyh By: #### 38267-4 ####[facility] LABIA [id number] [place], [place] [address]Irokqclmyk (Bld) [Volume fraction]41.3 %Vuokna93.0-46.0[facility] on above:Order Comment: Specimen Type: BLOOD SPECIMENOrdering Facility: [facility] Address:[address] [place], [place] [address]Performed By: #### 19276- 2 ####[facility] LABCLIA [id number] [place], [place] [address]Trdarvqyzn (Bld) [Mass/Vol]13.7 g/gZXbswhp79.5-15.5 [facility] on above:Order Comment: Specimen Type: BLOOD SPECIMENOrdering Facility: [facility] Address:[address] [place], [place] [address]Performed By: #### 48469-8 ####[facility] LABCLIA [id number] [place], [place] [address]XXH (RBC) [Entitic mass]31.1 oaFjjizp52.0-34.0[facility] on above: Order Comment: Specimen Type: BLOOD SPECIMENOrdering Facility: [facility] Address:[address] [place], [place] [address]Performed By: #### 46102- 2 ####[facility] LABCLIA [id number] [place], [place] [address]XDUL (RBC) [Mass/Vol]33.2 g/jNZnzcmy00.5-36.0[facility] on above:Order Comment: Specimen Type: BLOOD SPECIMENOrdering Facility: [facility] Address:[address] [place], [place] [address]Performed By: #### 56839-1 ####[facility] LABCLIA [id number] [place], [place] [address]QMS (RBC) [Entitic vol]93.7 bZLonytl28.0-100.0[facility] on above: Order Comment: Specimen Type: BLOOD SPECIMENOrdering Facility: [facility] Address:[address] [place], [place] [address]Performed By: #### 71232- 2 ####[facility] LABCLIA [id number] [place], [place] [address]Magnvchyu RBC (Bld) [#/Vol]10*3/uLNormal<0.01[facility] on above:Order Comment: Specimen Type: BLOOD SPECIMENOrdering Facility: [facility] Address:[address] [place], [place] [address]Performed By: #### 75537-2 ####[facility] LABCLIA [id number] [place], [place] [address]Spqqwgam mean volume (Bld) [Entitic vol]10.1 fLNormal9.0-12.7CThe [facility] on above:Order Comment: Specimen Type: BLOOD SPECIMENOrdering Facility: [facility] Address:[address] [place] [address] Performed By: #### 16819-2 ####[facility] LABCLIA [id number] [place], [place] [address]Hprrzsugv (Bld) [#/Vol]265 10*3/bXTyjxzx781-422FhnlgpegrGeorgetown Behavioral Hospital on above:Order Comment: Specimen Type: BLOOD SPECIMENOrdering Facility: [facility] Address:[address] [place], [place] [address]Performed By: #### 11887-0 ####[facility] LABCLIA [id number] [place], [place] [address]ZDN (Bld) [#/Vol]4.41 10*6/uLNormal3.90-5.20[facility] on above:Order Comment: Specimen Type: BLOOD SPECIMENOrdering Facility: [facility] Address:[address] [place], [place] [address]Performed By: #### 57715-3 ####[facility] LABCLIA [id number] [place], [place] [address]BJF (Bld) [#/Vol]10.07 10*3/uLNormal3.70-11.00[facility] on above: Order Comment: Specimen Type: BLOOD SPECIMENOrdering Facility: [facility] Address:[address] [place] [address]Ixbcudrsj By: #### 99325- 2 ####[facility] LABCLIA [id number] [place], [place] [address]FBL SerPl-mCncon 89-68-3492NBF [Mass/Vol]mg/LNormal<0.9 [facility] on above:Order Comment: Specimen Type: BLOOD SPECIMENOrdering Facility: [facility] Address:[address] [place] [address]Deckpttlx By: #### 1988-5 ####[facility] LABCLIA [id number] [address] [facility] HEALTH SYSTEMCRP [Mass/Vol]on 17-07-6721Qzrxrmtnpaaqzb and review of laboratory resultsNormalCleveland [facility] Greene MemorialComprehensive metabolic 2000 panel Ordered By: Josse Merlos on 93-42-1410Lwbodst [Mass/Vol]3.9 g/dL3.9 - 4.9 g/dL Serena ClinicALP [Catalytic activity/Vol]61 U/L34 - 123 U/LCleveland [facility] ALT [Catalytic activity/Vol]41 U/LHigh7 - 38 U/LCleveland ClinicAnion gap [Moles/Vol]14 mmol/L8 - 15 mmol/LCleveland ClinicAST [Catalytic activity/Vol]18 U/L13 - 35 U/LCleveland ClinicBilirubin [Mass/Vol]0.2 mg/dL0.2 - 1.3 mg/dL [facility] HospitalCalcium [Mass/Vol]9.6 mg/dL8.5 - 10.2 mg/dLSelect Medical [facility] Hospital Chloride [Moles/Vol]107 mmol/L98 - 107 mmol/LCleveland ClinicCO2 [Moles/Vol]20 mmol/LLow22 - 30 mmol/LCleveland ClinicCreatinine [Mass/Vol]0.59 mg/dL0.58 - 0.96 mg/dLSelect Medical Trihealth Rehabilitation HospitalGFR/1.73 sq M.predicted among non-blacks MDRD (S/P/Bld) [Vol rate/Area]115 mL/min/{1.73_m2}- PINFCMartin Memorial Hospital on above:Estimated Glomerular Filtration Rate (eGFR) is calculated using the 2020 CKD-EPI creatinine equation. This equation utilizes serum creatinine, sex, and age as parameters. The creatinine assay has traceable calibration to isotope dilution-mass spectrometry. Refer to KDIGO guidelines for clinical inte rpretation. In patients with unstable renal function, e.g. those with acute kidney injury, the eGFRmay not accurately reflect actual GFR.Glucose [Mass/Vol] 216 mg/aZNztz53 - 99 mg/dLWayne Hospital on above:The German Diabetes Association (ADA) provides guidance for cutoff [...] Standards of Medical Care in Diabetes 2016, [place] Diabetes Association. Diabetes Care. 2016.39(Suppl 1). Interpretation and review of laboratory resultsAbnormalCleveland ClinicPotassium [Moles/Vol]4.1 mmol/L3.7 - 5.1 mmol/LCchillicothe va medical centerand ClinicProtein [Mass/Vol]6.8 g/dL 6.3 - 8.0 g/dLKettering Health Springfieldodium [Moles/Vol]141 mmol/L136 - 144 mmol/L [facility] HospitalUrea nitrogen [Mass/Vol]19 mg/dL7 - 21 mg/dLSelect Medical Cleveland Clinic Rehabilitation Hospital, BeachwoodComprehensive metabolic 2000 panelon 38-09-0731Zjrkjfs [Mass/Vol]3.9 g/dLNormal3.9-4.9CThe [facility] on above:Order Comment: Specimen Type: BLOOD SPECIMENOrdering Facility: [facility] Address:[address] [place], [place] [address]HA [place], [place] [address]Performed By: #### 07520- 8 ####[facility] LABCLIA [id number] [place] [address]ULZ [Catalytic activity/Vol]61 U/SExskxg41-659VnaoiaqokGeorgetown Behavioral Hospital on above:Order Comment: Specimen Type: BLOOD SPECIMENOrdering Facility: [facility] Address:[address] [place], [place] [address]Performed By: #### 93202-8 ####[facility] LABCLIA [id number] [place], [place] [address]BDZ [Catalytic activity/Vol]41 U/LHigh7-38[facility] on above:Order Comment: Specimen Type: BLOOD SPECIMENOrdering Facility: [facility] Address:[address] [place], [place] [address]Performed By: #### 72873- 8 ####[facility] LABCLIA [id number] KERRI JA DRIVERHOLY CROSS HOSPITALAMAYAEAST [place], [place] [address]Xyptd gap [Moles/Vol]14 mmol/LNormal8-15[facility] on above:Order Comment: Specimen Type: BLOOD SPECIMENOrdering Facility: [facility] Address:[address] [place], [place] [address]Performed By: #### 17926-4 ####[facility] LABCLIA [id number] [place] [address]HVN [Catalytic activity/Vol]18 U/LVuarsd75-86ElescatqkGeorgetown Behavioral Hospital on above:Order Comment: Specimen Type: BLOOD SPECIMENOrdering Facility: [facility] Address:[address] [place], [place] [address]Performed By: #### 00077-9 ####[facility] LABCLIA [id number] OS[place]IO PERESMAGGYHOLY CROSS [place] [address] Bilirubin [Mass/Vol]0.2 mg/dLNormal0.2-1.3CThe [facility] on above:Order Comment: Specimen Type: BLOOD SPECIMENOrdering Facility: [facility] Address:[address] [place], [place] [address]Performed By: #### 80750-6 ####[facility] LABCLIA [id number] OSORIO BARNESHOLY CROSS HOSPITALAMAYAEAST [place], [place] [address]Wrckxff [Mass/Vol]9.6 mg/dLNormal8.5-10.2CThe [facility] on above:Order Comment: Specimen Type: BLOOD SPECIMENOrdering Facility: [facility] Address:[address] [place], [place] [address]Performed By: #### 65732-5 ####[facility] LABCLIA [id number] [place] PERESMAGGYCAROL[place], [place] [address]Gyfugwrs [Moles/Vol]107 mmol/GWbfore98-687TumlghhccGeorgetown Behavioral Hospital on above: Order Comment: Specimen Type: BLOOD SPECIMENOrdering Facility: [facility] Address:[address] [place], [place] [address]Performed By: #### 91738- 8 ####[facility] LABCLIA [id number] [place]CAR[place], [place] [address]OT3 [Moles/Vol]20 mmol/OPzm81-33DatyymeuzGeorgetown Behavioral Hospital on above:Order Comment: Specimen Type: BLOOD SPECIMENOrdering Facility: [facility] Address:[address] [place], [place] [address]Performed By: #### 69451-0 ####[facility] LABCLIA [id number] OSORIO BARNESHOLY CROSS HOSPITALCAYDENSENECA, [place] [address]Pqnbarpczl [Mass/Vol]0.59 mg/dL Normal0.58-0.96[facility] on above:Order Comment: Specimen Type: BLOOD SPECIMENOrdering Facility: [facility] Address:[address] [place], [place] [address]Performed By: #### 43242-8 ####[facility] LABCLIA [id number] KERRI JA DRIVERHOLY CROSS HOSPITALAMAYAEAST [place], [place] [address]Beptrngffd and Glomerular filtration rate.predicted panel (S/P/Bld)115 mL/min/1.73m???Normal>=60[facility] on above:Order Comment: Specimen Type: BLOOD SPECIMENOrdering Facility: [facility] Address:[address] [place], [place] [address]Apmzud Comment: Estimated Glomerular Filtration Rate (eGFR) is [...] not accurately reflect actual GFR.Performed By: #### 91522-9 ####[facility] LABCLIA [id number] [place], [place] [address]Deetmxk [Mass/Vol]216 mg/rHYjae22-12VcwfohohuGeorgetown Behavioral Hospital on above:Order Comment: Specimen Type: BLOOD SPECIMENOrdering Facility: [facility] Address:[address] [place] [address]Zvkihk Comment: The [employer] Diabetes Association (ADA) provides guidance for cutoff [...] Standards of Medical Care in Diabetes 2016, [place] Diabetes Association. Diabetes Care. 2016.39(Suppl 1).Performed By: #### 45880-7 ####[facility] LABCLIA [id number] [place], [place] [address]Gjbrcsjin [Moles/Vol]4.1 mmol/LNormal3.7-5.1CThe [facility] on above:Order Comment: Specimen Type: BLOOD SPECIMENOrdering Facility: [facility] Address:[address] [place] [id number] By: #### 40900-1 ####[facility] LABCLIA [id number] [place], [place] [address]Tbeahcm [Mass/Vol]6.8 g/dLNormal6.3-8.0[facility] on above:Order Comment: Specimen Type: BLOOD SPECIMENOrdering Facility: [facility] Address:[address] [place], [place] [address]Performed By: #### 61345- 8 ####[facility] LABCLIA [id number] [place], [place] [address]Wymmcq [Moles/Vol]141 mmol/TTdaozj169-153ZpimhlaqzGeorgetown Behavioral Hospital on above:Order Comment: Specimen Type: BLOOD SPECIMENOrdering Facility: [facility] Address:[address] [place], [place] [address]Performed By: #### 69036-3 ####[facility] LABCLIA [id number] [place], [place] [address]Ikis nitrogen [Mass/Vol]19 mg/dLNormal7-21[facility] on above:Order Comment: Specimen Type: BLOOD SPECIMENOrdering Facility: [facility] Address:[address] [place], [place] [address]Performed By: #### 35545-9 ####[facility] LABCLIA [id number] [place], [place] [address]CHY Westergren method (Bld) [Velocity]on 15-05-6013ZVR (Bld) [Velocity]28 mm/hHighSelect Medical Trihealth Rehabilitation HospitalInterpretation and review of laboratory resultsAbnormalCleveland [facility] Rivers[facility] Methodist HospitalR (Bld) [Velocity]28 mm/hHigh0-20[facility] on above:Order Comment: Specimen Type: BLOOD SPECIMENOrdering Facility: [facility] Address:[address] [place], [place] [address]Performed By: #### 4537-7 ####[facility] LABCLIA [id number] [place] [address] [place] AMERICAVITAMIN D 25 HYDROXYon 39-67-184575240170-jelgiecixzxmdr D3 [Mass/Vol]30.9 ng/mLLow31.0 - 80.0 ng/mLClevelSt. John of God HospitalComment on above: Classification of 25 [place] Vitamin D status: Deficiency/Insufficiency: < or = 30 ng/ml. Sufficiency/Optimal Levels: 31-80 ng/mL Toxicity: > 100 ng/mL. Test performed by chemiluminescent immunoassay. DNA EXTRACTION BLOODOrdered By: Dominga Araujo on 85-35-0478WHPRZKVVVSSEO (NG/UL)189.3 ng/ulSelect Medical Trihealth Rehabilitation HospitalTotal Yield94.65 ugSelect Medical Trihealth Rehabilitation HospitalComment on above:Specimens will be available for 3 years from date of collection. To order testing on this specimen for [facility] patients, please place an Tagorize order for DNA and RNA for Clinical Testing (SQNUCADD). To order for patients outside of the [facility] system, please request DNA and RNA for Clinical Testing, order code NUCADD. If additional paperwork is required for testing, please email completed forms to . VOLUME (UL) OF [id number] [facility] Methodist HospitalCNOVon 89-93-4134UGWP [facility] Hospital - CantonDNA EXTRACTION BLOODon 19-22-9966XOXVCRRSENKMV (NG/UL)189.3 ng/ulNormalCThe MetroHealth SystemComment on above:Order Comment: Specimen Type: BLOOD SPECIMENOrdering Facility: [facility] Address:[address] [place], [place] [address]Performed By: #### NUCBLD ####CLARITY ILLUMINA LIMSCLIA [id number] [place] [address] [place] AMERICATOTAL YIELD94.65 ugNormalCThe [facility] on above:Order Comment: Specimen Type: BLOOD SPECIMENOrdering Facility: [facility] Address:[address] [place], [place] [address]Result Comment: Specimens will be available for 3 years from date of collection. To order testing on this specimen for [facility] patients, please place an Epic order for DNA and RNA for Clinical Testing (SQNUCADD). To order for patients outside of the [facility] system, please request DNA and RNA for Clinical Testing, order code NUCADD.If additional paperwork is required for testing,please email completed forms to . Performed By: #### NUCBLD ####CLAR[facility] ILLUMINA LIMSCLIA [id number] [place] [address] [place] AMERICAVOLUME (UL) OF [id number] uLNormTrinity Health System [facility] on above:Order Comment: Specimen Type: BLOOD SPECIMENOrdering Facility: [facility] [facility] Address:[address] [place], [place] [address]Performed By: #### NUCBLD ####CLARITY ILLUMINA LIMSCLIA [id number] [address] STATES OF AMERICACNPNon 01-09-3097VQSSVtlpxeUluadfpwv Clinic ClevelandCNPNon 09-13-2024 CNPNNormalMckitrick HospitalCNOVSPon 23-27-8747NANPJIBgyenwRhftzodeb Clinic ClevelandCNPNon 07-56-1386FSSQKfpapgTcmjzeahdOhio State Health System IMMUNOGLOBULINS,IGG,IGA,IGMon 17-72-8056BsE [Mass/Vol]163 mg/qGKvwuif92-113 [facility] on above:Order Comment: Specimen Type: BLOOD SPECIMENOrdering Facility: [facility] Address:[address] [place], [place] [address]Performed By: #### SERIMM ####[facility] LABCLIA [id number] [place] [address] [place] AMERICAIgG [Mass/Vol]599 mg/bCQcw113-4114YwsvyeydaGeorgetown Behavioral Hospital on above:Order Comment: Specimen Type: BLOOD SPECIMENOrdering Facility: [facility] Address:[address] [place], [place] [address]Performed By: #### SERIMM ####[facility] LABCLIA [id number] [place] [address] [place] AMERICAIgM [Mass/Vol]387 mg/dL Mmtp18-920SmirafajmGeorgetown Behavioral Hospital on above:Order Comment: Specimen Type: BLOOD SPECIMENOrdering Facility: [facility] Address:[address] [place], [place] [address]Performed By: #### SERIMM ####[facility] LABCLIA [id number] [place] [address] [place] OF AMERICALaboratory - Chemistry and Chemistry - challengeon 15-11-7709ZsQ [Mass/Vol]163 mg/dL70 - 400 mg/dLSelect Medical Trihealth Rehabilitation HospitalIgG [Mass/Vol]599 mg/xBOjg508 - 1600 mg/dLSelect Medical Trihealth Rehabilitation HospitalIgM [Mass/Vol]387 mg/iDOuvj52 - 230 mg/dLSelect Medical Trihealth Rehabilitation HospitalNo Panel Informationon 95-59-2589Qipxebqofbcxdr and review of laboratory resultsAbnormalCMarietta Osteopathic Clinic W Auto Differential panel (Bld)on 81-08-8107Bzrmclmlq (Bld) [#/Vol]0.06 10*3/uLNormal <0.11C[facility] on above:Order Comment: Specimen Type: BLOOD SPECIMENOrdering Facility: [facility] Address:[address] [place], [place] [address]Performed By: #### 71753-2 ####[facility] LABCLIA [id number] [place] [address] Basophils/100 WBC (Bld)0.5 %NormalGeorgetown Behavioral Hospital on above: Order Comment: Specimen Type: BLOOD SPECIMENOrdering Facility: [facility] Address:[address] [place], [place] [address]Performed By: #### 30697- 8 ####[facility] LABCLIA [id number] [place], [place] [address]Bvazuxireeax cell count method Nom (Bld)AutoNormal [facility] on above:Order Comment: Specimen Type: BLOOD SPECIMENOrdering Facility: [facility] Address:[address] [place], [place] [address]Performed By: #### 73268-4 ####[facility] LABCLIA [id number] [place], [place] [address]Qbwzgepflcn (Bld) [#/Vol]0.08 10*3/uLNormal<0.46[facility] on above: Order Comment: Specimen Type: BLOOD SPECIMENOrdering Facility: [facility] Address:[address] [place], [place] [address]Performed By: #### 16216- 8 ####[facility] LABCLIA [id number] [place], [place] [address]Dltehqtysoz/100 WBC (Bld)0.6 %NormalGeorgetown Behavioral Hospital on above:Order Comment: Specimen Type: BLOOD SPECIMENOrdering Facility: [facility] Address:[address] [place], [place] [address]Performed By: #### 43525-7 ####[facility] LABIA [id number] [place], [place] [address]Jcbxjuddgls distribution width (RBC) [Ratio]16.0 %High11.5-15.0[facility] on above:Order Comment: Specimen Type: BLOOD SPECIMENOrdering Facility: [facility] Address:[address] [place], [place] [address]Performed By: #### 12126- 8 ####[facility] LABCLIA [id number] [place], [place] [address]Atnpcpgilk (Bld) [Volume fraction]42.9 %Hmrbvq16.0-46.0 [facility] on above:Order Comment: Specimen Type: BLOOD SPECIMENOrdering Facility: [facility] Address:[address] [place], [place] [address]Performed By: #### 68227-5 ####[facility] LABIA [id number] [place], [place] [address]Ngilgfttxd (Bld) [Mass/Vol]13.8 g/qUYjynra57.5-15.5CThe [facility] on above: Order Comment: Specimen Type: BLOOD SPECIMENOrdering Facility: [facility] Address:[address] [place], [place] [address]Performed By: #### 71160- 8 ####[facility] LABCLIA [id number] [place], [place] [address]Xmizvqvk granulocytes (Bld) [#/Vol]0.23 10*3/uLHigh<0.10 [facility] on above:Order Comment: Specimen Type: BLOOD SPECIMENOrdering Facility: [facility] Address:[address] [place], [place] [address]Performed By: #### 21163-9 ####[facility] LABCLIA [id number] [place], [place] [address]Whdupuvw granulocytes/100 WBC (Bld)1.8 %[facility] on above: Order Comment: Specimen Type: BLOOD SPECIMENOrdering Facility: [facility] Address:[address] [place], [place] [address]Performed By: #### 52843- 8 ####[facility] LABCLIA [id number] [place], [place] [address]Qzhyyxuzcsj (Bld) [#/Vol]2.07 10*3/uLNormal1.00-4.00 [facility] on above:Order Comment: Specimen Type: BLOOD SPECIMENOrdering Facility: [facility] Address:[address] [place], [place] [address]Performed By: #### 32799-9 ####[facility] LABIA [id number] [place], [place] [address]Gcheivvfyvq/100 WBC (Bld)15.8 %NormalGeorgetown Behavioral Hospital on above:Order Comment: Specimen Type: BLOOD SPECIMENOrdering Facility: [facility] Address:[address] [place], [place] [address]Performed By: #### 80499-5 ####[facility] LABCLIA [id number] [place], [place] [address]EJS (RBC) [Entitic mass]30.2 kdPomvsh63.0-34.0[facility] on above:Order Comment: Specimen Type: BLOOD SPECIMENOrdering Facility: [facility] Address:[address] [place], [place] [address]Performed By: #### 56707-1 ####[facility] LABCLIA [id number] [place], [place] [address]UUDH (RBC) [Mass/Vol]32.2 g/cFWyawdf38.5-36.0[facility] on above: Order Comment: Specimen Type: BLOOD SPECIMENOrdering Facility: [facility] Address:[address] [place], [place] [address]Performed By: #### 77464- 8 ####[facility] LABCLIA [id number] [place], [place] [address]GHK (RBC) [Entitic vol]93.9 kKIioasm13.0-100.0[facility] on above:Order Comment: Specimen Type: BLOOD SPECIMENOrdering Facility: [facility] Address:[address] [place], [place] [address]Performed By: #### 67985-9 ####[facility] LABCLIA [id number] [place], [place] [address]Maobpuciw (Bld) [#/Vol]0.86 10*3/uLNormal<0.87[facility] on above:Order Comment: Specimen Type: BLOOD SPECIMENOrdering Facility: [facility] Address:[address] [place], [place] [address]Performed By: #### 23975- 8 ####[facility] LABCLIA [id number] [place], [place] [address]Dnuxbkzfr/100 WBC (Bld)6.6 %NormalGeorgetown Behavioral Hospital on above:Order Comment: Specimen Type: BLOOD SPECIMENOrdering Facility: [facility] Address:[address] [place], [place] [address]Performed By: #### 01846-4 ####[facility] LABCLIA [id number] [place], [place] [address]Fzzmjbgnjgb (Bld) [#/Vol]9.82 10*3/uLHigh1.45-7.50[facility] on above:Order Comment: Specimen Type: BLOOD SPECIMENOrdering Facility: [facility] Address:[address] [place], [place] [address]Performed By: #### 95700-6 ####[facility] LABCLIA [id number] [place], [place] [address]Tzaroebmurh/100 WBC (Bld)74.7 %NormalGeorgetown Behavioral Hospital on above:Order Comment: Specimen Type: BLOOD SPECIMENOrdering Facility: [facility] Address:[address] [place], [place] [address]Performed By: #### 99701-3 ####[facility] LABIA [id number] [place], [place] [address]Thbmnbkwb RBC (Bld) [#/Vol] 10*3/uLNormal<0.01[facility] on above:Order Comment: Specimen Type: BLOOD SPECIMENOrdering Facility: [facility] Address:[address] [place], [place] [address]Performed By: #### 07258-4 ####[facility] LABIA [id number] [place], [place] [address]Vzrwnslbw RBC/100 WBC (Bld) [Ratio]0.0 /100 WBCNormal [facility] on above:Order Comment: Specimen Type: BLOOD SPECIMENOrdering Facility: [facility] Address:[address] [place], [place] [address]Performed By: #### 78319-8 ####[facility] LABCLIA [id number] [place], [place] [address]Yrfdqgso mean volume (Bld) [Entitic vol]9.5 fLNormal9.0-12.7CThe [facility] on above:Order Comment: Specimen Type: BLOOD SPECIMENOrdering Facility: [facility] Address:[address] [place] [address] Performed By: #### 90043-1 ####[facility] LABCLIA [id number] [place], [place] [address]Prmtpgjul (Bld) [#/Vol]291 10*3/cKQhdvyp784-568LrwdtcexrGeorgetown Behavioral Hospital on above:Order Comment: Specimen Type: BLOOD SPECIMENOrdering Facility: [facility] Address:[address] [place], [place] [address]Performed By: #### 52691-2 ####[facility] LABCLIA [id number] [place], [place] [address]IMR (Bld) [#/Vol]4.57 10*6/uLNormal3.90-5.20[facility] on above:Order Comment: Specimen Type: BLOOD SPECIMENOrdering Facility: [facility] Address:[address] [place], [place] [address]Performed By: #### 03142-6 ####[facility] LABCLIA [id number] [place], [place] [address]DTH (Bld) [#/Vol]13.12 10*3/uLHigh3.70-11.00[facility] on above: Order Comment: Specimen Type: BLOOD SPECIMENOrdering Facility: [facility] Address:[address] [place], [place] [address]Performed By: #### 73830- 8 ####[facility] LABCLIA [id number] [place], [place] [address]Difkazwliwofr metabolic 2000 panelon 35-17-4032Rmjxbsa [Mass/Vol]4.2 g/dLNormal3.9-4.9CThe [facility] on above:Order Comment: Specimen Type: BLOOD SPECIMENOrdering Facility: [facility] Address:[address] [place], [place] [address]Performed By: #### 83057- 8 ####[facility] LABCLIA [id number] [facility] [place], [place] [address]OOP [Catalytic activity/Vol]69 U/LMxthza64-854MjqdanxogGeorgetown Behavioral Hospital on above:Order Comment: Specimen Type: BLOOD SPECIMENOrdering Facility: [facility] Address:[address] [place], [place] [address]Performed By: #### 78525-7 ####[facility] LABCLIA [id number] [place], [place] [address]TRQ [Catalytic activity/Vol]38 U/LNormal7-38[facility] on above:Order Comment: Specimen Type: BLOOD SPECIMENOrdering Facility: [facility] Address:[address] [place], [place] [address]Performed By: #### 28372- 8 ####[facility] LABCLIA [id number] [place], [place] [address]Jqkqk gap [Moles/Vol]12 mmol/LNormal8-15[facility] on above:Order Comment: Specimen Type: BLOOD SPECIMENOrdering Facility: [facility] Address:[address] [place], [place] [address]Performed By: #### 77036-0 ####[facility] LABCLIA [id number] [place], [place] [address]XMA [Catalytic activity/Vol]15 U/ODeetrc32-90ZkddjpvwiGeorgetown Behavioral Hospital on above:Order Comment: Specimen Type: BLOOD SPECIMENOrdering Facility: [facility] Address:[address] [place], [place] [address]Performed By: #### 38549-3 ####[facility] LABCLIA [id number] [facility] [place] [address] Bilirubin [Mass/Vol]0.2 mg/dLNormal0.2-1.3CThe [facility] on above:Order Comment: Specimen Type: BLOOD SPECIMENOrdering Facility: [facility] Address:[address] [place], [place] [address]Performed By: #### 25498-9 ####[facility] LABCLIA [id number] [facility], [place] [address]Pvxmyho [Mass/Vol]10.3 mg/dLHigh8.5-10.2C[facility] on above:Order Comment: Specimen Type: BLOOD SPECIMENOrdering Facility: [facility] Address:[address] [place], [place] [address]Performed By: #### 85435-2 ####[facility] LABCLIA [id number] [facility], [place] [address]Rziqwmvo [Moles/Vol]101 mmol/JQnrswc94-603KhldlbkyrGeorgetown Behavioral Hospital on above: Order Comment: Specimen Type: BLOOD SPECIMENOrdering Facility: [facility] Address:[address] [place], [place] [address]Performed By: #### 56406- 8 ####[facility] LABCLIA [id number] [facility] DRIVERHOLY CROSS HOSPITALCAYDENS[place], [place] [address]QJ4 [Moles/Vol]26 mmol/YMqsqjh55-23HgrsnucovGeorgetown Behavioral Hospital on above:Order Comment: Specimen Type: BLOOD SPECIMENOrdering Facility: [facility] Address:[address] [place], [place] [address]Performed By: #### 76333-9 ####[facility] LABIA [id number] [facility]MAGGYHOL[facility], [place] [address]Hmjevdopmp [Mass/Vol]0.64 mg/dL Normal0.58-0.96[facility] on above:Order Comment: Specimen Type: BLOOD SPECIMENOrdering Facility: [facility] Address:[address] [place] [address]Qyvgbzest By: #### 45596-6 ####[facility] LABCLIA [id number] [place], [place] [address]Wpxssvdjnk and Glomerular filtration rate.predicted panel (S/P/Bld)113 mL/min/1.73m???Normal>=60[facility] on above:Order Comment: Specimen Type: BLOOD SPECIMENOrdering Facility: [facility] Address:[address] [place] [address]Kgbjmu Comment: Estimated Glomerular Filtration Rate (eGFR) is [...] not accurately reflect actual GFR.Performed By: #### 84980-7 ####[facility] LABCLIA [id number] [place], [place] [address]Ptiftwx [Mass/Vol]139 mg/jBYled17-83XjkiejasbGeorgetown Behavioral Hospital on above:Order Comment: Specimen Type: BLOOD SPECIMENOrdering Facility: [facility] Address:[address] [place] [address]Gxwvar Comment: The [place] Diabetes Association (ADA) provides guidance for cutoff [...] Standards of Medical Care in Diabetes 2016, [place] Diabetes Association. Diabetes Care. 2016.39(Suppl 1).Performed By: #### 56164-0 ####[facility] LABCLIA [id number] [place], [place] [address]Wlcgyjufa [Moles/Vol]4.4 mmol/LNormal3.7-5.1CThe [facility] on above:Order Comment: Specimen Type: BLOOD SPECIMENOrdering Facility: [facility] Address:[address] [place], [place] [address]Performed By: #### 60485-4 ####[facility] LABCLIA [id number] [place], [place] [address]Krashxz [Mass/Vol]7.1 g/dLNormal6.3-8.0[facility] on above:Order Comment: Specimen Type: BLOOD SPECIMENOrdering Facility: [facility] Address:[address] [place], [place] [address]Performed By: #### 38020- 8 ####[facility] LABCLIA [id number] [place], [place] [address]Jvxnbh [Moles/Vol]139 mmol/GWwiupx971-102UohpiwxyxGeorgetown Behavioral Hospital on above:Order Comment: Specimen Type: BLOOD SPECIMENOrdering Facility: [facility] Address:[address] [place], [place] [address]Performed By: #### 45388-0 ####[facility] LABCLIA [id number] [place], [place] [address]Narz nitrogen [Mass/Vol]18 mg/dLNormal7-21[facility] on above:Order Comment: Specimen Type: BLOOD SPECIMENOrdering Facility: [facility] Address:[address] [place], [place] [address]Performed By: #### 99222-5 ####[facility] LABIA [id number] [place], [place] [address]Avptcxks SerPl-ncon 94-82-9908Egsbpluf [Mass/Vol]43.1 ng/cSDzwxpm47.7-205.1CThe [facility] on above:Order Comment: Specimen Type: BLOOD SPECIMENOrdering Facility: [facility] Address:[address] [place], [place] [address]Performed By: #### 2132-9, 2284-8, 2276-4, 74666-3 ####[facility] LABCLIA [id number] [facility] [id number] [place] [address] [place] OF AMERICAFolate SerPl-mCncon 41-67-5476Plyblp [Mass/Vol]ng/mLNormal>4.7CThe [facility] on above:Order Comment: Specimen Type: BLOOD SPECIMENOrdering Facility: [facility] Address:[address] [place], [place] [address]Result Comment: A result of > 20 ng/mL is not necessarily indicative of a pathologic or treatable condition: it reflects a limitation of the test methodology.Assay reference range: 4.8 to 24.2 ng/mL. Suitable for detection of folate deficiency.Reference:Folate III (Folate III) [package insert V 1.0 Turkmen]. [facility], [place], [place]: March 2015.Performed By: #### 2132-9, 2284-8, 2276-4, 36047-1 ####[facility] LABCLIA [id number] [place] [address] [place] AMERICAIgG SerPl-mCnc on 49-14-9370IgW [Mass/Vol]729 mg/rHHneewh042-3285MsgigwwyeMckitrick Hospital Comment on above:Order Comment: Specimen Type: BLOOD SPECIMENOrdering Facility: [facility] Address:[address] [place] [address] Performed By: #### 2465-3 ####[facility] LABIA [id number] [place] [address] [place] [employer] binding capacity panelon 53-80-0993Fthc [Mass/Vol]80 ug/dLNormal 41-186[facility] on above:Order Comment: Specimen Type: BLOOD SPECIMENOrdering Facility: [facility] Address:[address] [place] [address]Pyrghwofj By: #### 2132-9, 2284-8, 2276-4, 28418-1 ####[facility] LABCLIA [id number] [place] [address] [place] OF AMERICAIron binding capacity [Mass/Vol] 416 ug/bSQkzy171-920EwiqrvoijGeorgetown Behavioral Hospital on above:Order Comment: Specimen Type: BLOOD SPECIMENOrdering Facility: [facility] Address:[address] [place], [place] [address]Performed By: #### 2132-9, 2284-8, 2276-4, 30684-7 ####[facility] LABCLIA [id number] [place] [address] [place] AMERICAIron/TIBC [Molar ratio]19.2 %Uyvjth51.0-57.0[facility] on above:Order Comment: Specimen Type: BLOOD SPECIMENOrdering Facility: [facility] Address:[address] [place], [place] [address]Performed By: #### 2132- 9, 2284-8, 2276-4, 11223-1 ####[facility] LABCLIA [id number] [place] [address] [place] AMERICAVit B12 SerPl-mCncon 95-12-0996Gerfoofhw (Vitamin B12) [Mass/Vol]555 pg/cXKukbya266-5522 [facility] on above:Order Comment: Specimen Type: BLOOD SPECIMENOrdering Facility: [facility] Address:[address] [place], [place] [address]Performed By: #### 2132-9, 2284-8, 2276-4, 69142-1 ####[facility] LABCLIA [id number] [place] [address] [place] AMERICACNPNon 89-42-5413KHANRjedbi [facility] Thyroid glandon 86-62-0617[address] [place] [address] Ultrasound Report Signed Patient: ARIADNA HALEY MR#: [id number] : 1980 Acct:[id number] Age/Sex: 43 / F ADM Date: 08/24/24 Loc: US Attending Dr: Gordo Barfield M.D. Ordering Physician: Gordo Barfield M.D. Date of Service: 08/24/24 Procedure(s): US thyroid Accession Number(s): [id number] cc: GAY DE LA TORRE ; Gordo Barfield M.D. [place] [id number] Patient Name: ARIADNA HALEY MRN: [id number] date: 1980 Sex: F Assigned Patient Location: US Current Patient Location: US Accession/Order Number: [id number] Exam Date: 08/24/2024 09:09 Report Date: 08/24/2024 [...] this was thought to be cystic. The copper plate lithographer today considered it solid and it was given TI-RADS 4 classification. No internal color flow is shown. Size has not significantly changed when measuring in a comparable manner. No other nodularity is seen. US/US thyroid IMPRESSION: SIMILAR SMALL LEFT THYROID NODULE. FOLLOW-UP IN ONE YEAR IS SUGGESTED. Impression dictated by: Simin Nelson M.D.08/24/2024 9:22 AM Dictation Location: [place] [address] Electronically authenticated by: [id number] Y Date: 08/24/2024 09:22 Dictated By: Simin Nelson M.D. Signed By: 08/24/24923 DD/ 1 TD/TT: Hydraulic Modeling Engineer:DARLENEHRadiology, Radiologist, - 08/24/[address] [address] Ultrasound Report Signed Patient: ARIADNA HALEY MR#: [id number] : 1980 Acct:[id number] Age/Sex: 43 / F ADM Date: 08/24/24 Loc: US Attending Dr: Gordo Barfield M.D. Ordering Physician: Gordo Barfield M.D. Date of Service: 08/24/24 Procedure(s): US thyroid Accession Number(s): [id number] cc: GAY DE LA TORRE ; Gordo Barfield M.D. The [address] [id number] Patient Name: ARIADNA HALEY MRN: [id number] date: 1980 Sex: F Assigned Patient Location: US Current Patient Location: US Accession/Order Number: [id number] Exam Date: 08/24/2024 09:09 Report Date: 08/24/2024 [...] this was thought to be cystic. The copper plate lithographer today considered it solid and it was given TI-RADS 4 classification. No internal color flow is shown. Size has not significantly changed when measuring in a comparable manner. No other nodularity is seen. US/US thyroid IMPRESSION: SIMILAR SMALL LEFT THYROID NODULE. FOLLOW-UP IN ONE YEAR IS SUGGESTED. Impression dictated by: Simin Nelson M.D.08/24/2024 9:22 AM Dictation Location: [place] [address] Electronically authenticated by: [id number] Y Date: 08/24/2024 09:22 Dictated By: Simin Nelson M.D. Signed By: 08/24/24923 DD/ 1 TD/TT: Hydraulic Modeling Engineer: MABLE GlezRadiology Study observation (narrative)MABLE GlezUS Thyroid glandOrdered By: Radiologist Radiology on 08-26-1166SKKZ [employer] Work Phone: cNPNon [phone] State Health System HCG ( test) IA.rapid Ql (U)Ordered By: Adolfo Kang on [id number] ( test) Ql (U)Urine human chorionic gonadotropin (hCG) detection by immunoassayCleveland Clinic Marymount HospitalHCG,Urineon 11-16-7948Adzz HCG ( test) Ql (U)NegativeNoUNC Health Lenoir Physician GroupComment on above:Result Comment: PERFORMED BY: [place] [address] PATHOLOGIST LOCK AND DAM OPERATOR HAYDEN LLAMAS M.D.Performed By: #### UHCG #### [place] [address] USACNOVon [id number]qry Clinic ClevelandCNPN on 52-24-4602VNHSDmpnheOvhiwoymj Clinic Dviufhpas15([place])D3 SerPl-ncon 344649-doyheoerodzwym D3 [Mass/Vol]28.5 ng/mLLow31.0-80.0Mckitrick HospitalComment on above:Order Comment: Specimen Type: BLOOD SPECIMENOrdering Facility: [facility] Address:[address] [place] [address]Nsrlbz Comment: Classification of 25 [place] Vitamin D status:Deficiency/Insufficiency: < or = 30 ng/ml.Sufficiency/Optimal Levels: 31- 80 ng/mLToxicity: > 100 ng/mL.Test performed by chemiluminescent immunoassay. Performed By: #### 1989-3 ####[facility] LABCLIA [id number] [facility] FOR CHILDRENBXCNZAWYRTR88LTQXSFLJC, [place] [address] [place] CBC panel Auto (Bld)on 79-71-9285Sudrmyoywbc distribution width (RBC) [Ratio] 14.3 %Afavch65.5-15.0[facility] on above:Order Comment: Specimen Type: BLOOD SPECIMENOrdering Facility: [facility] Address:[address] [place], [place] [address]Performed By: #### 62902-2 ####[facility]ENTERAnahi [facility] LABIA [id number] [place] [id number] [place] GRANT HOSPITALHematocrit (Bld) [Volume fraction]41.3 %Zzxnoq77.0-46.0 [facility] on above:Order Comment: Specimen Type: BLOOD SPECIMENOrdering Facility: [facility] Address:[address] [place], [place] [address]Performed By: #### 13550-7 ####[facility]ENTERAnahi [facility]PITALIA [id number] [place] [id number] [place] [facility] HOSPITALHemoglobin (Bld) [Mass/Vol]13.5 g/gMAdchef97.5-15.5CThe [facility] on above:Order Comment: Specimen Type: BLOOD SPECIMENOrdering Facility: [facility] Address:[address] [place], [place] [address]Performed By: #### 04298-8 ####[facility]ENTERAnahi [facility] LABIA [id number] [place] [address] [place] AMERICAMCH (RBC) [Entitic mass]30.4 qnDjutmu77.0-34.0[facility] on above:Order Comment: Specimen Type: BLOOD SPECIMENOrdering Facility: [facility] Address:[address] [place], [place] [address]Performed By: #### 25974-0 ####[facility]ENTERAnahi [facility] LABIA [id number] [place] [address] [place], [place] [address]MCHC (RBC) [Mass/Vol]32.7 g/hAWjzrrg06.5-36.0[facility] on above: Order Comment: Specimen Type: BLOOD SPECIMENOrdering Facility: [facility] Address:[address] [place], [place] [address]Performed By: #### 85748- 2 ####[facility] LABIA [id number] [place] [id number] [facility] HOSPITALMCV (RBC) [Entitic vol]93.0 rSWcjawm68.0-100.0[facility] on above:Order Comment: Specimen Type: BLOOD SPECIMENOrdering Facility: [facility] Address:[address] [place], [place] [address]Performed By: #### 58438-3 ####[facility]ENTERAnahi [facility]OSPITALIA [id number] [place] [address] [facility]PO[facility] HOSPITALucleated RBC (Bld) [#/Vol]10*3/uL Normal<0.01[facility] on above:Order Comment: Specimen Type: BLOOD SPECIMENOrdering Facility: [facility] Address:[address] [place], [place] [address]Performed By: #### 08217-9 ####AMHABDIAnahi [facility] LABIA [id number] [place] [address] [place] [facility] Platelet mean volume (Bld) [Entitic vol]9.8 fLNormal9.0-12.7CThe [facility] on above:Order Comment: Specimen Type: BLOOD SPECIMENOrdering Facility: [facility] Address:[address] [place], [place] [address]Performed By: #### 81231-0 ####[facility] LABIA [id number] [place] [address] [facility] HOSPITALPlatelets (Bld) [#/Vol]341 10*3/uL Vvtcjg935-601LpzucvsmvGeorgetown Behavioral Hospital on above:Order Comment: Specimen Type: BLOOD SPECIMENOrdering Facility: [facility] Address:[address] [place], [place] [address]Performed By: #### 89221-0 ####[facility]ENTERT [facility] LABIA [id number] [place] [address] [facility]PO[facility]TE HOSPITALRB (Bld) [#/Vol]4.44 10*6/uLNormal3.90-5.20Mckitrick HospitalComhawthorn center on above:Order Comment: Specimen Type: BLOOD SPECIMENOrdering Facility: [facility] Address:[address] [place], [place] [address]Performed By: #### 93213-9 ####[facility]ENTERT [facility]OSPITALIA [id number] [place] [address] [facility] HOSPITALW (Bld) [#/Vol]12.66 10*3/uLHigh3.70-11.00[facility] on above:Order Comment: Specimen Type: BLOOD SPECIMENOrdering Facility: [facility] Address:[address] [place], [place] [address]Performed By: #### 99563-9 ####[facility]ENTERT [facility] LABIA [id number] [place] [address] [facility] HOSPITALCRP SerPl-mCncon 54-10-3853MDF [Mass/Vol]0.1 mg/dLNormal<0.9ClevelFairfield Medical Center on above:Order Comment: Specimen Type: BLOOD SPECIMENOrdering Facility: [facility] Address:[address] [place], [place] [address]Performed By: #### 39406-6, 1987-09 ####[facility]ENTERT [facility] LABIA [id number] [place] [id number] [facility] AMERICAComprehensive metabolic 2000 panelon 85-29-4982Vylmuzl [Mass/Vol]4.0 g/dLNormal3.9-4.9CThe [facility] on above:Order Comment: Specimen Type: BLOOD SPECIMENOrdering Facility: [facility] Address:[address] [place], [place] [address]Performed By: #### 62942-2, 1987-09 ####[facility] LABCLIA [id number] [place] [address] [place] AMERICAALP [Catalytic activity/Vol]52 U/HZllijj24-384WkdxsdqncGe[facility]al Hospital on above:Order Comment: Specimen Type: BLOOD SPECIMENOrdering Facility: [facility] Address:[address] [place] [address] [place], [place] [address]Performed By: #### 47204- 8, 1987-09 ####[facility] LABCLIA [id number] [place] [address] [place] AMERICAALT [Catalytic activity/Vol]26 U/LNormal7-38[facility] on above:Order Comment: Specimen Type: BLOOD SPECIMENOrdering Facility: [facility] Address:[address] [place], [place] [address]Performed By: #### 75547-0, 1987-09 ####[facility] LABCLIA [id number] [place] [address] [place] AMERICAAnion gap [Moles/Vol]10 mmol/LNormal8-15[facility] on above:Order Comment: Specimen Type: BLOOD SPECIMENOrdering Facility: [facility] Address:[address] [place], [place] [address]Performed By: #### 98442- 8, 1987-09 ####[facility] LABCLIA [id number] [place] [address] [place] AMERICAAST [Catalytic activity/Vol]12 U/CIdn92-96QwllumajiGeorgetown Behavioral Hospital on above:Order Comment: Specimen Type: BLOOD SPECIMENOrdering Facility: [facility] Address:[facility] YAYONichole [place], [place] [address]Performed By: #### 62392-4, 1987-09 ####[facility] LABCLIA [id number] [place] [address] [place] AMERICABilirubin [Mass/Vol]0.3 mg/dLNormal0.2-1.3[facility] ClevelandComment on above:Order Comment: Specimen Type: BLOOD SPECIMENOrdering Facility: [facility] Address:[address] [place], [place] [address]Performed By: #### 60960- 8, 1987-09 ####[facility] LABCLIA [id number] [place] [address] [place] AMERICACalcium [Mass/Vol]9.5 mg/dLNormal8.5-10.2CThe [facility] on above:Order Comment: Specimen Type: BLOOD SPECIMENOrdering Facility: [facility] Address:[address] [place], [place] [address]Performed By: #### 12911-9, 1987-09 ####[facility] LABCLIA [id number] [place] [address] [place] AMERICAChloride [Moles/Vol]103 mmol/QBdvvsr07-305WwkgikngtGeorgetown Behavioral Hospital on above: Order Comment: Specimen Type: BLOOD SPECIMENOrdering Facility: [facility] Address:[address] [place], [place] [address]Performed By: #### 31623- 8, 1987-09 ####[facility] LABCLIA [id number] [place] [address] [place] AMERICACO2 [Moles/Vol]27 mmol/YVqagym59-72QjoerddxzGeorgetown Behavioral Hospital on above:Order Comment: Specimen Type: BLOOD SPECIMENOrdering Facility: [facility] Address:[address] [place], [place] [address]Performed By: #### 56585-8, 1987-09 ####[facility] LABCLIA [id number] [place] [address] [place] AMERICACreatinine [Mass/Vol]0.78 mg/dLNormal0.58-0.96[facility] on above:Order Comment: Specimen Type: BLOOD SPECIMENOrdering Facility: [facility] Address:[address] [place], [place] [address]Performed By: #### 84327-3, 1987-09 ####AMHGUADALUPE COUNTY HOSPITALT [facility] LABIA [id number] [place] [address] [place] AMERICACreatinine and Glomerular filtration rate.predicted panel (S/P/Bld)97 mL/min/1.73m???Normal>=60Mckitrick HospitalComment on above: Order Comment: Specimen Type: BLOOD SPECIMENOrdering Facility: [facility] Address:[address] [place], [place] [address]Result Comment: Estimated Glomerular Filtration Rate (eGFR) is [...] not accurately reflect actual GFR.Performed By: #### 03419-5, 1987-09 ####AMHGUADALUPE COUNTY HOSPITALT [facility] HOSPITALIA [id number] [place] [address] [place] AMERICAGlucose [Mass/Vol]116 mg/uSAspk62-47KqbztxkasMckitrick Hospital Comment on above:Order Comment: Specimen Type: BLOOD SPECIMENOrdering Facility: [facility] Address:[address] [place] [address] Comment: The [place] Diabetes Association (ADA) provides guidance for cutoff [...] Standards of Medical Care in Diabetes 2016, [place] Diabetes Association. Diabetes Care. 2016.39(Suppl 1).Performed By: #### 00200-2, 1987-09 ####[facility]HG[facility]ADALU[facility] HOSPITALT [facility] LABIA [id number] [place] [address] [place] AMERICAPotassium [Moles/Vol]3.8 mmol/LNormal3.7-5.1CThe [facility] on above: Order Comment: Specimen Type: BLOOD SPECIMENOrdering Facility: [facility] Address:[address] [place], [place] [address]Performed By: #### 53706- 8, 1987-09 ####[facility] LABCLIA [id number] [place] [address] [place] AMERICAProtein [Mass/Vol]7.6 g/dLNormal6.3-8.0[facility] on above:Order Comment: Specimen Type: BLOOD SPECIMENOrdering Facility: [facility] Address:[address] [place], [place] [address]Performed By: #### 92150-2, 1987-09 ####[facility] LABIA [id number] [place] [address] [place] AMERICASodium [Moles/Vol]140 mmol/ZCadjgp600-642EziwuklbgGeorgetown Behavioral Hospital on above:Order Comment: Specimen Type: BLOOD SPECIMENOrdering Facility: [facility] Address:[address] [place], [place] [address]Performed By: #### 88612-3, 1987-09 ####[facility] LABIA [id number] [place] [address] [place] AMERICAUrea nitrogen [Mass/Vol]18 mg/dLNormal7-21[facility] on above:Order Comment: Specimen Type: BLOOD SPECIMENOrdering Facility: [facility] Address:[address] [place], [place] [address]Performed By: #### 93669-4, 1987-09 ####[facility] LABIA [id number] [place] [address] [place] AMERICAESR Westergren method (Bld) [Velocity]on 30-92-9733SAW (Bld) [Velocity]28 mm/hHigh0-20[facility] ClevelandComment on above:Order Comment: Specimen Type: BLOOD SPECIMENOrdering Facility: [facility] Address:[address] [place], [place] [address]Performed By: #### 4537-7 ####[facility] LABCLIA [id number] [place] [address] [place] CNPNon 24-39-5168FBQLFsgvwzWkpclhsweKettering Health [facility] HEALTHon 06-13-2024 ALLIED HEALTHNormalCUpper Valley Medical Center W Auto Differential panel (Bld) on 81-50-8387Wshhcqqxl (Bld) [#/Vol]0.10 10*3/uLNINFSelect Medical [facility] Basophils/100 WBC (Bld)0.7 %[facility] HospitalDifferential cell count method Nom (Bld)AutoCleveland ClinicEosinophils (Bld) [#/Vol]0.15 10*3/uLNINFSelect Medical Trihealth Rehabilitation HospitalEosinophils/100 WBC (Bld)1.1 %[facility] HospitalErythrocyte distribution width (RBC) [Ratio]14.2 %11.5 - 15.0 %[facility] HospitalHematocrit (Bld) [Volume fraction]39.0 %36.0 - 46.0 %[facility] HospitalHemoglobin (Bld) [Mass/Vol]13.0 g/dL 11.5 - 15.5 g/dLSelect Medical Trihealth Rehabilitation HospitalImmature granulocytes (Bld) [#/Vol]0.21 10*3/uL HighNINFSelect Medical Trihealth Rehabilitation HospitalImmature granulocytes/100 WBC (Bld)1.5 %[facility] Interpretation and review of laboratory resultsAbnormalCBlanchard [facility] Lymphocytes (Bld) [#/Vol]2.16 10*3/uLSelect Medical Trihealth Rehabilitation HospitalLymphocytes/100 WBC (Bld) 15.4 %[facility] HospitalMCH (RBC) [Entitic mass]30.5 pg26.0 - 34.0 pgClevelSt. John of God HospitalMCHC (RBC) [Mass/Vol]33.3 g/dL30.5 - 36.0 g/dLGlenbeigh HospitalV (RBC) [Entitic vol]91.5 fL80.0 - 100.0 fLCleveland ClinicMonocytes (Bld) [#/Vol]0.79 10*3/uLNINFSelect Medical Trihealth Rehabilitation HospitalMonocytes/100 WBC (Bld)5.6 %[facility] Neutrophils (Bld) [#/Vol]10.59 10*3/uLKindred Hospital DaytonNeutrophils/100 WBC (Bld)75.7 %[facility] HospitalNucleated RBC (Bld) [#/Vol]NINFCBlanchard Valley Health System [facility] Nucleated RBC/100 WBC (Bld) [Ratio]0.0 %/100 WBCSelect Medical Trihealth Rehabilitation HospitalPlatelet mean volume (Bld) [Entitic vol]9.9 fL9.0 - 12.7 fLCBlanchard Valley Health System Blanchard Valley HospitalPlatelets (Bld) [#/Vol]327 10*3/uLSelect Medical Trihealth Rehabilitation HospitalRBC (Bld) [#/Vol]4.26 10*6/uL3.90 - 5.20 m/uL [facility] HospitalWBC (Bld) [#/Vol]14.00 10*3/uLVeterans Health Administration ClinicBasophils (Bld) [#/Vol]0.10 10*3/uLNormal<0.11CThe [facility] Comment on above:Order Comment: Specimen Type: BLOOD SPECIMENOrdering Facility: [facility] Address:[address] [place] [address] Performed By: #### 44062-6 ####[facility] LABIA [id number] [place], [place] [address]Oruwggbel/100 WBC (Bld)0.7 % NormalMckitrick HospitalComment on above:Order Comment: Specimen Type: BLOOD SPECIMENOrdering Facility: [facility] Address:[address] [place], [place] [address]Performed By: #### 26862-0 ####[facility] LABIA [id number] [place] [address] Differential cell count method Nom (Bld)AutoNormalCThe [facility] Comment on above:Order Comment: Specimen Type: BLOOD SPECIMENOrdering Facility: [facility] Address:[address] [place] [address] Performed By: #### 08815-9 ####[facility] LABCLIA [id number] [place], [place] [address]Xnsbrjbljgt (Bld) [#/Vol]0.15 10*3/uLNormal<0.46[facility] on above:Order Comment: Specimen Type: BLOOD SPECIMENOrdering Facility: [facility] Address:[address] [place], [place] [address]Performed By: #### 09968-2 ####[facility] LABCLIA [id number] [place], [place] [address]Vzetfblvxgv/100 WBC (Bld)1.1 %NormalGeorgetown Behavioral Hospital on above:Order Comment: Specimen Type: BLOOD SPECIMENOrdering Facility: [facility] Address:[address] [place], [place] [address]Performed By: #### 08283-7 ####[facility] LABIA [id number] [place], [place] [address]Tphiebbbsxf distribution width (RBC) [Ratio]14.2 %Eguydy78.5-15.0[facility] on above: Order Comment: Specimen Type: BLOOD SPECIMENOrdering Facility: [facility] Address:[address] [place], [place] [address]Performed By: #### 91202- 8 ####[facility] LABCLIA [id number] [place], [place] [address]Igcqylpzpd (Bld) [Volume fraction]39.0 %Tfqoth05.0-46.0 [facility] on above:Order Comment: Specimen Type: BLOOD SPECIMENOrdering Facility: [facility] Address:[address] [place], [place] [address]Performed By: #### 88793-6 ####[facility] LABIA [id number] [place], [place] [address]Eozjenhmuk (Bld) [Mass/Vol]13.0 g/nBUsiorr51.5-15.5CThe [facility] on above: Order Comment: Specimen Type: BLOOD SPECIMENOrdering Facility: [facility] Address:[address] [place], [place] [address]Performed By: #### 39397- 8 ####[facility] LABCLIA [id number] [place], [place] [address]Jfwakphx granulocytes (Bld) [#/Vol]0.21 10*3/uLHigh<0.10 [facility] on above:Order Comment: Specimen Type: BLOOD SPECIMENOrdering Facility: [facility] Address:[address] [place], [place] [address]Performed By: #### 42073-7 ####[facility] LABCLIA [id number] [place], [place] [address]Rilqyqpe granulocytes/100 WBC (Bld)1.5 %NormalGeorgetown Behavioral Hospital on above: Order Comment: Specimen Type: BLOOD SPECIMENOrdering Facility: [facility] Address:[address] [place], [place] [address]Performed By: #### 14937- 8 ####[facility] LABCLIA [id number] [place], [place] [address]Ovawwcffnhf (Bld) [#/Vol]2.16 10*3/uLNormal1.00-4.00 [facility] on above:Order Comment: Specimen Type: BLOOD SPECIMENOrdering Facility: [facility] Address:[address] [place], [place] [address]Performed By: #### 43741-1 ####[facility] LABCLIA [id number] [place], [place] [address]Ojffyeixbwy/100 WBC (Bld)15.4 %[facility] on above:Order Comment: Specimen Type: BLOOD SPECIMENOrdering Facility: [facility] Address:[address] [place], [place] [address]Performed By: #### 57505-6 ####[facility] LABCLIA [id number] [place], [place] [address]QTS (RBC) [Entitic mass]30.5 gyJroxck96.0-34.0[facility] on above:Order Comment: Specimen Type: BLOOD SPECIMENOrdering Facility: [facility] Address:[address] [place], [place] [address]Performed By: #### 60388-4 ####[facility] LABCLIA [id number] [place], [place] [address]NMRY (RBC) [Mass/Vol]33.3 g/gPXnvsdd88.5-36.0[facility] on above: Order Comment: Specimen Type: BLOOD SPECIMENOrdering Facility: [facility] Address:[address] [place], [place] [address]Performed By: #### 00571- 8 ####[facility] LABCLIA [id number] [place], [place] [address]DPC (RBC) [Entitic vol]91.5 aWDpvoce47.0-100.0[facility] on above:Order Comment: Specimen Type: BLOOD SPECIMENOrdering Facility: [facility] Address:[address] [place], [place] [address]Performed By: #### 30101-6 ####[facility] LABCLIA [id number] [place], [place] [address]Amdiyvqif (Bld) [#/Vol]0.79 10*3/uLNormal<0.87[facility] on above:Order Comment: Specimen Type: BLOOD SPECIMENOrdering Facility: [facility] Address:[address] [place], [place] [address]Performed By: #### 09959- 8 ####[facility] LABCLIA [id number] [place], [place] [address]Ppllsdncd/100 WBC (Bld)5.6 %NormalGeorgetown Behavioral Hospital on above:Order Comment: Specimen Type: BLOOD SPECIMENOrdering Facility: [facility] Address:[address] [place], [place] [address]Performed By: #### 34252-7 ####[facility] LABCLIA [id number] [place], [place] [address]Eizblwlbekq (Bld) [#/Vol]10.59 10*3/uLHigh1.45-7.50[facility] on above:Order Comment: Specimen Type: BLOOD SPECIMENOrdering Facility: [facility] Address:[address] [place], [place] [address]Performed By: #### 46934-6 ####[facility] LABCLIA [id number] [place], [place] [address]Vwginlxthpg/100 WBC (Bld)75.7 %NormalGeorgetown Behavioral Hospital on above:Order Comment: Specimen Type: BLOOD SPECIMENOrdering Facility: [facility] Address:[address] [place], [place] [address]Performed By: #### 00688-9 ####[facility] LABCLIA [id number] [place], [place] [address]Crsnpinpb RBC (Bld) [#/Vol] 10*3/uLNormal<0.01[facility] on above:Order Comment: Specimen Type: BLOOD SPECIMENOrdering Facility: [facility] Address:[address] [place], [place] [address]Performed By: #### 15503-5 ####[facility] LABCLIA [id number] [place], [place] [address]Bdyllxykf RBC/100 WBC (Bld) [Ratio]0.0 /100 WBCNormal [facility] on above:Order Comment: Specimen Type: BLOOD SPECIMENOrdering Facility: [facility] Address:[address] [place], [place] [address]Performed By: #### 13338-4 ####[facility] LABCLIA [id number] [place], [place] [address]Fszbjjvm mean volume (Bld) [Entitic vol]9.9 fLNormal9.0-12.7CThe [facility] on above:Order Comment: Specimen Type: BLOOD SPECIMENOrdering Facility: [facility] Address:[address] [place] [address] Performed By: #### 83197-7 ####[facility] LABCLIA [id number] [place], [place] [address]Psoeycxuh (Bld) [#/Vol]327 10*3/yIBoyfce137-684JbxgykmcdGeorgetown Behavioral Hospital on above:Order Comment: Specimen Type: BLOOD SPECIMENOrdering Facility: [facility] Address:[address] [place], [place] [address]Performed By: #### 54886-8 ####[facility] LABCLIA [id number] [place], [place] [address]ZYO (Bld) [#/Vol]4.26 10*6/uLNormal3.90-5.20[facility] on above:Order Comment: Specimen Type: BLOOD SPECIMENOrdering Facility: [facility] Address:[address] [place], [place] [address]Performed By: #### [id number] ####[facility] LABCLIA [id number] [place], [place] [address]UQK (Bld) [#/Vol]14.00 10*3/uLHigh3.70-11.00[facility] on above: Order Comment: Specimen Type: BLOOD SPECIMENOrdering Facility: [facility] Address:[address] [place], [place] [address]Performed By: #### [id number]- [id number] ####[facility] LABCLIA [id number] [place], [place] [address]AVOGAJsq [id number]n Ville [address] panelOrdered By: Josse Merlos on [id number] [Mass/Vol]3.9 g/dL3.9 - 4.9 g/dLSerena ClinicALP [Catalytic activity/Vol]73 U/L34 - 123 U/LCleveland ClinicALT [Catalytic activity/Vol]24 U/L7 - 38 U/L Serena ClinicAnion gap [Moles/Vol]15 mmol/L8 - 15 mmol/LCleveland ClinicAST [Catalytic activity/Vol]12 U/LLow13 - 35 U/LCleveland ClinicBilirubin [Mass/Vol] mg/dLLow0.2 - 1.3 mg/dLSerena ClinicCalcium [Mass/Vol]9.2 mg/dL8.5 - 10.2 mg/dLSerena ClinicChloride [Moles/Vol]104 mmol/L98 - 107 mmol/LCleveland ClinicCO2 [Moles/Vol]19 mmol/LLow22 - 30 mmol/LCleveland ClinicCreatinine [Mass/Vol]0.58 mg/dL0.58 - 0.96 mg/dLSerena ClinicGFR/1.73 sq M.predicted among non-blacks MDRD (S/P/Bld) [Vol rate/Area]115 mL/min/{1.73_m2}- PINF [facility] Rehabilitation HospitalComment on above:Estimated Glomerular Filtration Rate (eGFR) is calculated using the 2020 CKD-EPI creatinine equation. This equation utilizes serum creatinine, sex, and age as parameters. The creatinine assay has traceable calibration to isotope dilution-mass spectrometry. Refer to KDIGO guidelines for clinical interpretation. In patients with unstable renal function, e.g. those with acute kidney injury, the eGFRmay not accurately reflect actual GFR.Glucose [Mass/Vol]163 mg/cCQatg21 - 99 mg/dLSelect Medical Trihealth Rehabilitation HospitalComment on above:The [place] Diabetes Association (ADA) provides guidance for cutoff [...] Standards of Medical Care in Diabetes 2016, [place] Diabetes Association. Diabetes Care. 2016.39(Suppl 1). Interpretation and review of laboratory resultsAbnormalCleveland ClinicPotassium [Moles/Vol]3.9 mmol/L3.7 - 5.1 mmol/LCmartins ferry hospital ClinicProtein [Mass/Vol]6.8 g/dL 6.3 - 8.0 g/dLSerena ClinicSodium [Moles/Vol]138 mmol/L136 - 144 mmol/L [facility] HospitalUrea nitrogen [Mass/Vol]13 mg/dL7 - 21 mg/dLSelect Medical Cleveland Clinic Rehabilitation Hospital, BeachwoodComprehensive metabolic 2000 panelon 54-02-6904Pvwhnqh [Mass/Vol]3.9 g/dLNormal3.9-4.9CThe MetroHealth SystemComhawthorn center on above:Order Comment: Specimen Type: BLOOD SPECIMENOrdering Facility: [facility] Address:[address] [place], [place] [address]Performed By: #### 21446- 8 ####[facility] LABCLIA [id number] [place], [place] [address]DQI [Catalytic activity/Vol]73 U/PVeuxnb06-068PmjsvpeyoGeorgetown Behavioral Hospital on above:Order Comment: Specimen Type: BLOOD SPECIMENOrdering Facility: [facility] Address:[address] [place], [place] [address]Performed By: #### 20677-6 ####[facility] LABCLIA [id number] [place], [place] [address]FKV [Catalytic activity/Vol]24 U/LNormal7-38[facility] on above:Order Comment: Specimen Type: BLOOD SPECIMENOrdering Facility: [facility] Address:[address] [place], [place] [address]Performed By: #### 92579- 8 ####[facility] LABCLIA [id number] [place], [place] [address]Wqfgy gap [Moles/Vol]15 mmol/LNormal8-15[facility] on above:Order Comment: Specimen Type: BLOOD SPECIMENOrdering Facility: [facility] Address:[address] [place], [place] [address]Performed By: #### 76524-7 ####[facility] LABCLIA [id number] [place], [place] [address]UXA [Catalytic activity/Vol]12 U/BMja26-93TwzmvkcmmGeorgetown Behavioral Hospital on above:Order Comment: Specimen Type: BLOOD SPECIMENOrdering Facility: [facility] Address:[address] [place], [place] [address]Performed By: #### 93288-9 ####[facility] LABCLIA [id number] [place] [address] Bilirubin [Mass/Vol]mg/dLLow0.2-1.3CThe [facility] on above: Order Comment: Specimen Type: BLOOD SPECIMENOrdering Facility: [facility] Address:[address] [place], [place] [address]Performed By: #### 87034- 8 ####[facility] LABCLIA [id number] [place], [place] [address]Faalwyn [Mass/Vol]9.2 mg/dLNormal8.5-10.2CThe [facility] on above:Order Comment: Specimen Type: BLOOD SPECIMENOrdering Facility: [facility] Address:[address] [place], [place] [address]Performed By: #### 15163-8 ####[facility] LABCLIA [id number] [place], [place] [address]Qqhtwsrq [Moles/Vol]104 mmol/L Vtvkkb08-862DtoxrsbjhGeorgetown Behavioral Hospital on above:Order Comment: Specimen Type: BLOOD SPECIMENOrdering Facility: [facility] Address:[address] [place], [place] [address]Performed By: #### 73320-3 ####[facility] LABCLIA [id number] [place] [address] CO2 [Moles/Vol]19 mmol/HLlo52-79KbxugxsihGeorgetown Behavioral Hospital on above:Order Comment: Specimen Type: BLOOD SPECIMENOrdering Facility: [facility] Address:[address] [place], [place] [address]Performed By: #### 46339- 8 ####[facility] LABIA [id number] [place], [place] [address]Cpvvcplyjf [Mass/Vol]0.58 mg/dLNormal0.58-0.96[facility] on above:Order Comment: Specimen Type: BLOOD SPECIMENOrdering Facility: [facility] Address:[address] [place], [place] [address]Performed By: #### 94433-1 ####[facility] [id number] [place], [place] [address]Gfpdzrvsbm and Glomerular filtration rate.predicted panel (S/P/Bld)115 mL/min/1.73m???Normal >=60[facility] on above:Order Comment: Specimen Type: BLOOD SPECIMENOrdering Facility: [facility] Address:[address] [place], [place] [address]Result Comment: Estimated Glomerular Filtration Rate (eGFR) is calculated using the 2020 CKD-EPI creatinine equation. This equation utilizes serum creatinine, sex, and age as parameters. The creatinine assay has traceable calibration to isotope dilution-mass spectrometry. Refer to KDIGO guidelines for clinical interpretation. In patients with unstable renal function, e.g. those with acute kidney injury, the eGFR may not accurately reflect actual GFR.Performed By: #### 20677-0 ####[facility] LABIA [id number] [place], [place] [address]Qmlfqub [Mass/Vol]163 mg/tCYrka61-24IndsppabeGeorgetown Behavioral Hospital on above:Order Comment: Specimen Type: BLOOD SPECIMENOrdering Facility: [facility] Address:[address] [place], [place] [address]Result Comment: The [place] Diabetes Association (ADA) provides guidance for cutoff [...] Standards of Medical Care in Diabetes 2016, [place] Diabetes Association. Diabetes Care. 2016.39(Suppl 1).Performed By: #### 20124-8 ####[facility] LABCLIA [id number] [place], [place] [address]Propikdvt [Moles/Vol]3.9 mmol/LNormal3.7-5.1CThe [facility] on above: Order Comment: Specimen Type: BLOOD SPECIMENOrdering Facility: [facility] Address:[address] [place], [place] [address]Performed By: #### 18359- 8 ####[facility] LABCLIA [id number] [place], [place] [address]Holiswg [Mass/Vol]6.8 g/dLNormal6.3-8.0[facility] on above:Order Comment: Specimen Type: BLOOD SPECIMENOrdering Facility: [facility] Address:[address] [place], [place] [address]Performed By: #### 31734-8 ####[facility] LABCLIA [id number] [place], [place] [address]Ssdwvy [Moles/Vol]138 mmol/L Ijudxq075-700TncwnwimwGeorgetown Behavioral Hospital on above:Order Comment: Specimen Type: BLOOD SPECIMENOrdering Facility: [facility] Address:[address] [place], [place] [address]Performed By: #### 23976-5 ####[facility] LABCLIA [id number] [place] [address] Urea nitrogen [Mass/Vol]13 mg/dLNormal-[facility] on above:Order Comment: Specimen Type: BLOOD SPECIMENOrdering Facility: [facility] Address:[address] [place], [place] [address]Performed By: #### 35700-0 ####[facility] LABCLIA [id number] [place], [place] [address]DXB Westergren method (Bld) [Velocity]on 06-13-2024 ESR (Bld) [Velocity]30 mm/[facility]on HospitalInterpretation and review of laboratory resultsAbnormalCleveland [facility]tering [facility] Greene MemorialESR (Bld) [Velocity]30 mm/hHigh0-20[facility] on above:Order Comment: Specimen Type: BLOOD SPECIMENOrdering Facility: [facility] Address:[address] [place], [place] [address]Performed By: #### 4537-7 ####[facility] LABCLIA [id number] [place] [id number] [place] OF AMERICAFERRITINon 30-52-4845Mzykfhrb [Mass/Vol]30.9 ng/mL14.7 - 205.1 ng/mLCleveland ClinicFOLATE, SERUMon 93-59-0795Ybijfk [Mass/Vol]19.6 ng/mL4.7 - PINF ng/mLCleveland ClinicFerritin SerPl-mCncon 35-34-4073Qsccaukw [Mass/Vol]30.9 ng/lBXrgdpg65.7-205.1ClevelFairfield Medical Center on above: Order Comment: Specimen Type: BLOOD SPECIMENOrdering Facility: [facility] Address:[address] [place], [place] [address]Performed By: #### 2284- 8, 2276-4, 95265-3, 2132-9 ####[facility] LABCLIA [id number] [facility] [place], [place] [address] [place] AMERICAFerritin [Mass/Vol]on 08-12-4139Mjdxfzsomhrjex and review of laboratory resultsNormal McKitrick HospitalFolate SerPl-mCncon 17-22-1877Vuvuse [Mass/Vol] 19.6 ng/mLNormal>4.7CThe [facility] on above:Order Comment: Specimen Type: BLOOD SPECIMENOrdering Facility: [facility] Address:[address] [place], [place] [address]Performed By: #### 2284-8, 2276-4, 62833-7, 2132-9 ####[facility] LABCLIA [id number] [place] [address] [place] IMMUNOGLOBULINS,IGG,IGA,IGMon 35-88-5227SbA [Mass/Vol]170 mg/oTMswcgq48-419 [facility] on above:Order Comment: Specimen Type: BLOOD SPECIMENOrdering Facility: [facility] Address:[address] [place], [place] [address]Performed By: #### SERIMM ####[facility] LABCLIA [id number] [place] [address] [place] AMERICAIgG [Mass/Vol]663 mg/zLFdc838-6405WbuybuevhGeorgetown Behavioral Hospital on above:Order Comment: Specimen Type: BLOOD SPECIMENOrdering Facility: [facility] Address:[address] [place], [place] [address]Performed By: #### SERIMM ####[facility] LABCLIA [id number] [place] [id number] [place] AMERICAIgM [Mass/Vol]376 mg/dL Nvzb60-029HkyzbzrgkGeorgetown Behavioral Hospital on above:Order Comment: Specimen Type: BLOOD SPECIMENOrdering Facility: [facility] Address:[address] [place], [place] [address]Performed By: #### SERIMM ####[facility] LABCLIA [id number] [place] [address] [place] AMERICAIron and Iron binding capacity panelon 09-67-5263Rhft [Mass/Vol]64 ug/tMZdstdv15-734OkisqphjkGeorgetown Behavioral Hospital on above:Order Comment: Specimen Type: BLOOD SPECIMENOrdering Facility: [facility] Address:[address] [place], [place] [address]Performed By: #### 2284- 8, 2276-4, 97125-7, 2131-9 ####[facility] LABCLIA [id number] [place] [address] [place] AMERICAIron binding capacity [Mass/Vol]409 ug/nSNsyc070-770CpxikimgoGeorgetown Behavioral Hospital on above:Order Comment: Specimen Type: BLOOD SPECIMENOrdering Facility: [facility] Address:[address] [place] [address] Performed By: #### 2284-8, 2276-4, 41710-7, 9 ####[facility] LABCLIA [id number] [place] [address] [place] AMERICAIron/TIBC [Molar ratio]15.6 %Hztymn46.0-57.0[facility] on above:Order Comment: Specimen Type: BLOOD SPECIMENOrdering Facility: [facility] Address:[address] [place], [place] [address]Performed By: #### 2284-8, 2276-4, 90970-8, 9 ####[facility] LABCLIA [id number] [place] [address] [place] AMERICALaboratory - Chemistry and Chemistry - challengeon 64-14-9774JnT [Mass/Vol]170 mg/dL70 - 400 mg/dLSelect Medical Trihealth Rehabilitation HospitalIgG [Mass/Vol]663 mg/rPUja099 - 1600 mg/dLSerena ClinicIgM [Mass/Vol]376 mg/zELiri79 - 230 mg/dLSelect Medical Trihealth Rehabilitation HospitalNo Panel Informationon 93-02-3605Wxnmssxxqtflst and review of laboratory resultsNormalCchillicothe va medical centerand [facility] Greene MemorialInterpretation and review of laboratory resultsAbnormalCleveland [facility] Greene MemorialVITAMIN B12 on 27-06-9847Bisvrgaps (Vitamin B12) [Mass/Vol]516 pg/mL232 - 1245 pg/mL [facility] HospitalVit B12 SerPl-mCncon 28-94-3998Mjewlbvgh (Vitamin B12) [Mass/Vol]516 pg/sWVghrhb318-9775Qesmhvkqd Clinic ClevelandComment on above: Order Comment: Specimen Type: BLOOD SPECIMENOrdering Facility: [facility] Address:[address] [place], [place] [address]Performed By: #### 2284- 8, 2276-4, 05163-8, 2132-9 ####[facility] LABCLIA [id number] [place] [address] [place] AMERICACNPNon 10-90-0726KDAAUlksteGuhwveqde Clinic ClevelandIGP,APTIMA HPV,AGE GDLNon 70-37-1496SUO GDLN ACOG TESTINGNote.NOMS HealthcareComment on above:TESTS RESULT FLAG UNITS REF RANGE LAB Clinician Provided Cytology Information Source.............Cervix;Endocervix No. of containers..01 ThinPrep Vial Age Algo ACOG Vicky... FLAG LEGEND: L-Low Normal,H-High Normal,LL-Alert Low,HH-Alert High <-Panic Low,>-Panic High,A-Abnormal,AA-Critical Abnormal Performed at: 01 =[address] [place] [address] Aparna Solorzano MD, HPV APTIMANegativeNegativeNOMS HealthcareComment on above:This nucleic acid amplification test detects fourteen high- risk HPV types (16,18,31,33,35,39,45,51,52,56,58,59,66,68) without differentiation. Performed at: =[facility]co[address] [id number] Athletic Events Scorer: Aparna Solorzano MD, Phone: [phone] Performed at: [address] [id number] Athletic Events Scorer: Aparna Solorzano MD, Phone: [phone] IGP, APTIMA HPV, RFX 16/18,45Note.NOMS HealthcareComment on above:TESTS RESULT FLAG UNITS REF RANGE LAB DIAGNOSIS: 02 NEGATIVE FOR INTRAEPITHELIAL LESION OR MALIGNANCY. Specimen adequacy: 02 Satisfactory for evaluation. Endocervical and/or squamous metaplastic cells (endocervical component) are present. Performed by: 02 Kenzie Kam, Hand Compositor (ASCP) . 02 Note: Note 02 The [...] Low,>-Panic High,A-Abnormal,AA-Critical Abnormal Performed at: [address] [facility] [address] [place] [address] Aparna Solorzano MD, BRUSH-SPATULA CERVIX ENDOCERVIX CLINISYNCSSM Health Care W Auto Differential panel (Bld)on 05-19-2024 Basophils (Bld) [#/Vol]0.08 10*3/uLNIMarymount HospitalBasophils/100 WBC (Bld) 0.6 %[facility] HospitalDifferential cell count method Nom (Bld)AutoCleveland ClinicEosinophils (Bld) [#/Vol]0.17 10*3/uLNINFSelect Medical Trihealth Rehabilitation HospitalEosinophils/100 WBC (Bld)1.2 %[facility] HospitalErythrocyte distribution width (RBC) [Ratio]14.3 % 11.5 - 15.0 %[facility] HospitalHematocrit (Bld) [Volume fraction]39.8 %36.0 - 46.0 %[facility] HospitalHemoglobin (Bld) [Mass/Vol]13.4 g/dL11.5 - 15.5 g/dLSelect Medical Trihealth Rehabilitation HospitalImmature granulocytes (Bld) [#/Vol]0.13 10*3/uLHighNINFSelect Medical Trihealth Rehabilitation Hospital Immature granulocytes/100 WBC (Bld)0.9 %[facility] HospitalInterpretation and review of laboratory resultsAbnormalCleveland ClinicLymphocytes (Bld) [#/Vol] 2.96 10*3/uLSelect Medical Trihealth Rehabilitation HospitalLymphocytes/100 WBC (Bld)20.5 %[facility]igh HospitalH (RBC) [Entitic mass]31.1 pg26.0 - 34.0 pgCSelect Medical Specialty Hospital - Columbus SouthHC (RBC) [Mass/Vol] 33.7 g/dL30.5 - 36.0 g/dLSelect Medical Trihealth Rehabilitation HospitalMCV (RBC) [Entitic vol]92.3 fL80.0 - 100.0 fLCmartins ferry hospital ClinicMonocytes (Bld) [#/Vol]0.87 10*3/uLHighNINFSelect Medical Trihealth Rehabilitation HospitalMonocytes/100 WBC (Bld)6.0 %[facility] HospitalNeutrophils (Bld) [#/Vol]10.20 10*3/uLHighSelect Medical Trihealth Rehabilitation HospitalNeutrophils/100 WBC (Bld)70.8 %[facility] Nucleated RBC (Bld) [#/Vol]NINFClevelSt. John of God HospitalNucleated RBC/100 WBC (Bld) [Ratio]0.0 %/100 WBCSelect Medical Trihealth Rehabilitation HospitalPlatelet mean volume (Bld) [Entitic vol]10.1 fL9.0 - 12.7 fLCmartins ferry hospital ClinicPlatelets (Bld) [#/Vol]303 10*3/uLSelect Medical Trihealth Rehabilitation HospitalRBC (Bld) [#/Vol]4.31 10*6/uL3.90 - 5.20 m/uLSelect Medical Trihealth Rehabilitation HospitalWBC (Bld) [#/Vol]14.41 10*3/uLHighLakeHealth TriPoint Medical Center ClinicBasophils (Bld) [#/Vol] 0.08 10*3/uLNormal<0.11CThe [facility] on above:Order Comment: Specimen Type: BLOOD SPECIMENOrdering Facility: [facility] Address:[address] [place], [place] [address]Performed By: #### 18245-6 ####[facility] LABIA [id number] [place], [place] [address]Fuutpsizt/100 WBC (Bld)0.6 %NormalGeorgetown Behavioral Hospital on above:Order Comment: Specimen Type: BLOOD SPECIMENOrdering Facility: [facility] Address:[address] [place], [place] [address]Performed By: #### 09597-7 ####[facility] LABCLIA [id number] [place], [place] [address]Twjkwzuohxir cell count method Nom (Bld)AutoNormalCThe Jewish Hospital on above:Order Comment: Specimen Type: BLOOD SPECIMENOrdering Facility: [facility] Address:[address] [place], [place] [address]Performed By: #### 41201-3 ####[facility] LABCLIA [id number] [place], [place] [address]Qqzfquregks (Bld) [#/Vol]0.17 10*3/uLNormal<0.46[facility] on above:Order Comment: Specimen Type: BLOOD SPECIMENOrdering Facility: [facility] Address:[address] [place], [place] [address]Performed By: #### 82753-5 ####[facility] HOSPITALDAPHNE [facility] LABIA [id number] [place], [place] [address]Pnrqggehfex/100 WBC (Bld)1.2 %NormalGeorgetown Behavioral Hospital on above:Order Comment: Specimen Type: BLOOD SPECIMENOrdering Facility: [facility] Address:[address] [place], [place] [address]Performed By: #### 89093-1 ####[facility] LABCLIA [id number] [place], [place] [address]Udcughaxajf distribution width (RBC) [Ratio]14.3 %Normal 11.5-15.0[facility] on above:Order Comment: Specimen Type: BLOOD SPECIMENOrdering Facility: [facility] Address:[address] [place], [place] [address]Performed By: #### 97714-7 ####[facility] LABIA [id number] [place] [address] Hematocrit (Bld) [Volume fraction]39.8 %Hbzmlp79.0-46.0[facility] on above:Order Comment: Specimen Type: BLOOD SPECIMENOrdering Facility: [facility] Address:[address] [place], [place] [address]Performed By: #### 98348-1 ####[facility]OLADAPHNE [facility] LABCLIA [id number] [place], [place] [address]Owxbgzmebj (Bld) [Mass/Vol]13.4 g/zSHlehqa77.5-15.5CThe [facility] on above:Order Comment: Specimen Type: BLOOD SPECIMENOrdering Facility: [facility] Address:[address] [place], [place] [address]Performed By: #### 13494-5 ####[facility] LABCLIA [id number] [place], [place] [address]Sfykmewz granulocytes (Bld) [#/Vol]0.13 10*3/uLHigh<0.10 [facility] on above:Order Comment: Specimen Type: BLOOD SPECIMENOrdering Facility: [facility] Address:[address] [place], [place] [address]Performed By: #### 68775-9 ####[facility] LABCLIA [id number] [place], [place] [address]Quuvndxb granulocytes/100 WBC (Bld)0.9 %[facility] on above: Order Comment: Specimen Type: BLOOD SPECIMENOrdering Facility: [facility] Address:[address] [place], [place] [address]Performed By: #### 80732- 8 ####[facility] LABCLIA [id number] [place], [place] [address]Ecmywiicuvq (Bld) [#/Vol]2.96 10*3/uLNormal1.00-4.00 [facility] on above:Order Comment: Specimen Type: BLOOD SPECIMENOrdering Facility: [facility] Address:[address] [place], [place] [address]Performed By: #### 38333-0 ####[facility] LABIA [id number] [place], [place] [address]Ndqovvtgsyb/100 WBC (Bld)20.5 %NormalGeorgetown Behavioral Hospital on above:Order Comment: Specimen Type: BLOOD SPECIMENOrdering Facility: [facility] Address:[address] [place], [place] [address]Performed By: #### 01036-2 ####[facility] LABCLIA [id number] [place], [place] [address]KPO (RBC) [Entitic mass]31.1 oePdhfaj34.0-34.0[facility] on above:Order Comment: Specimen Type: BLOOD SPECIMENOrdering Facility: [facility] Address:[address] [place], [place] [address]Performed By: #### 15381-8 ####[facility] LABIA [id number] [place], [place] [address]KEHZ (RBC) [Mass/Vol]33.7 g/lDEifnbl76.5-36.0[facility] on above: Order Comment: Specimen Type: BLOOD SPECIMENOrdering Facility: [facility] Address:[address] [place], [place] [address]Performed By: #### 05321- 8 ####[facility] LABIA [id number] [place], [place] [address]SEG (RBC) [Entitic vol]92.3 qZNzfqgt47.0-100.0[facility] on above:Order Comment: Specimen Type: BLOOD SPECIMENOrdering Facility: [facility] Address:[address] [place], [place] [address]Performed By: #### 97465-2 ####[facility] LABIA [id number] [place], [place] [address]Hkudprdvb (Bld) [#/Vol]0.87 10*3/uLHigh<0.87[facility] on above:Order Comment: Specimen Type: BLOOD SPECIMENOrdering Facility: [facility] Address:[address] [place], [place] [address]Performed By: #### 55895- 8 ####[facility] LABCLIA [id number] [place], [place] [address]Etmswvhjn/100 WBC (Bld)6.0 %NormalGeorgetown Behavioral Hospital on above:Order Comment: Specimen Type: BLOOD SPECIMENOrdering Facility: [facility] Address:[address] [place], [place] [address]Performed By: #### 11423-9 ####[facility] LABCLIA [id number] [place], [place] [address]Kehtatdcicn (Bld) [#/Vol]10.20 10*3/uLHigh1.45-7.50[facility] on above:Order Comment: Specimen Type: BLOOD SPECIMENOrdering Facility: [facility] Address:[address] [place], [place] [address]Performed By: #### 95452-7 ####[facility] LABCLIA [id number] [place], [place] [address]Tuiqjxqcqsq/100 WBC (Bld)70.8 %NormalGeorgetown Behavioral Hospital on above:Order Comment: Specimen Type: BLOOD SPECIMENOrdering Facility: [facility] Address:[address] [place], [place] [address]Performed By: #### 83396-0 ####[facility] LABCLIA [id number] [place], [place] [address]Ezlbzimjs RBC (Bld) [#/Vol] 10*3/uLNormal<0.01[facility] on above:Order Comment: Specimen Type: BLOOD SPECIMENOrdering Facility: [facility] Address:[address] [place], [place] [address]Performed By: #### [id number] ####[facility] LABCLIA [id number] [place], [place] [address]Beomqgkdq RBC/100 WBC (Bld) [Ratio]0.0 /100 WBCNormal [facility] on above:Order Comment: Specimen Type: BLOOD SPECIMENOrdering Facility: [facility] [facility] Address:[address] [place], [place] [address]Performed By: #### 23502-1 ####[facility] LABCLIA [id number] [place], [place] [address]Fzbzuqku mean volume (Bld) [Entitic vol]10.1 fLNormal9.0-12.7CThe [facility] on above:Order Comment: Specimen Type: BLOOD SPECIMENOrdering Facility: [facility] Address:[address] [place] [address] Performed By: #### 84976-1 ####[facility] LABCLIA [id number] [place], [place] [address]Rvyzcksbz (Bld) [#/Vol]303 10*3/qORkwtee713-841FxjhpblxiGeorgetown Behavioral Hospital on above:Order Comment: Specimen Type: BLOOD SPECIMENOrdering Facility: [facility] Address:[address] [place], [place] [address]Performed By: #### 51104-7 ####[facility] LABCLIA [id number] [place], [place] [address]JWH (Bld) [#/Vol]4.31 10*6/uLNormal3.90-5.20[facility] on above:Order Comment: Specimen Type: BLOOD SPECIMENOrdering Facility: [facility] Address:[address] [place], [place] [address]Performed By: #### 25931-6 ####[facility] LABIA [id number] [place], [place] [address]AFT (Bld) [#/Vol]14.41 10*3/uLHigh3.70-11.00[facility] on above: Order Comment: Specimen Type: BLOOD SPECIMENOrdering Facility: [facility] Address:[address] [place], [place] [address]Performed By: #### 02050- 8 ####[facility] LABCLIA [id number] [place], [place] [address]Graoebphtpuri metabolic 2000 panelon 05-05-7346Httjlzo [Mass/Vol]4.0 g/dL3.9 - 4.9 g/dLSerena ClinicALP [Catalytic activity/Vol]79 U/L34 - 123 U/LCleveland ClinicALT [Catalytic activity/Vol]25 U/L7 - 38 U/L Serena ClinicAnion gap [Moles/Vol]14 mmol/L8 - 15 mmol/LCleveland ClinicAST [Catalytic activity/Vol]12 U/LLow13 - 35 U/LCleveland ClinicBilirubin [Mass/Vol] mg/dLLow0.2 - 1.3 mg/dLSerena ClinicCalcium [Mass/Vol]9.4 mg/dL8.5 - 10.2 mg/dLSerena ClinicChloride [Moles/Vol]105 mmol/L98 - 107 mmol/LCleveland ClinicCO2 [Moles/Vol]21 mmol/LLow22 - 30 mmol/LCleveland ClinicCreatinine [Mass/Vol]0.49 mg/dLLow0.58 - 0.96 mg/dLSerena ClinicGFR/1.73 sq M.predicted among non-blacks MDRD (S/P/Bld) [Vol rate/Area]120 mL/min/{1.73_m2}- PINF [facility] HospitalComment on above:Estimated Glomerular Filtration Rate (eGFR) is calculated using the 2020 CKD-EPI creatinine equation. This equation utilizes serum creatinine, sex, and age as parameters. The creatinine assay has traceable calibration to isotope dilution-mass spectrometry. Refer to KDIGO guidelines for clinical interpretation. In patients with unstable renal function, e.g. those with acute kidney injury, the eGFRmay not accurately reflect actual GFR.Glucose [Mass/Vol]155 mg/zMPkss68 - 99 mg/dLBarney Children's Medical Centerment on above:The [place] Diabetes Association (ADA) provides guidance for cutoff [...] Standards of Medical Care in Diabetes 2016, [place] Diabetes Association. Diabetes Care. 2016.39(Suppl 1). Interpretation and review of laboratory resultsAbnormalCleveland ClinicPotassium [Moles/Vol]3.8 mmol/L3.7 - 5.1 mmol/LClevelcarolinas continuecare hospital at pineville ClinicProtein [Mass/Vol]6.6 g/dL 6.3 - 8.0 g/dLSerena ClinicSodium [Moles/Vol]140 mmol/L136 - 144 mmol/L [facility] HospitalUrea nitrogen [Mass/Vol]12 mg/dL7 - 21 mg/dLMckitrick Hospital ClinicAlbumin [Mass/Vol]4.0 g/dLNormal3.9-4.9CThe MetroHealth SystemComment on above:Order Comment: Specimen Type: BLOOD SPECIMENOrdering Facility: [facility] Address:[address] [place], [place] [address]Performed By: #### 70827-3 ####[facility] LABCLIA [id number] [place] [address] [place] ALP [Catalytic activity/Vol]79 U/AYlqcym31-190LhismlyoxGeorgetown Behavioral Hospital on above:Order Comment: Specimen Type: BLOOD SPECIMENOrdering Facility: [facility] Address:[address] [place] [address] Performed By: #### 70982-5 ####[facility] LABCLIA [id number] [place] [address] [place] ALT [Catalytic activity/Vol]25 U/LNormal7-38[facility] on above:Order Comment: Specimen Type: BLOOD SPECIMENOrdering Facility: [facility] Address:[address] [place], [place] [address]Performed By: #### 99616-0 ####[facility] LABCLIA [id number] [place] [address] [place] AMERICAAnion gap [Moles/Vol] 14 mmol/LNormal8-15[facility] on above:Order Comment: Specimen Type: BLOOD SPECIMENOrdering Facility: [facility] Address:[address] [place], [place] [address]Performed By: #### 45506-9 ####[facility] LABCLIA [id number] [place] [address] [place] AMERICAAST [Catalytic activity/Vol]12 U/HYaw02-74HyrfyyqigGeorgetown Behavioral Hospital on above:Order Comment: Specimen Type: BLOOD SPECIMENOrdering Facility: [facility] Address:[address] [place], [place] [address]Performed By: #### 88577-9 ####[facility] LABCLIA [id number] [place] [address] [place] AMERICABilirubin [Mass/Vol]mg/dLLow0.2-1.3CThe [facility] on above:Order Comment: Specimen Type: BLOOD SPECIMENOrdering Facility: [facility] Address:[address] [place], [place] [address]Performed By: #### 40730-0 ####[facility] LABCLIA [id number] [place] [address] [place] Calcium [Mass/Vol]9.4 mg/dLNormal8.5-10.2CThe [facility] on above:Order Comment: Specimen Type: BLOOD SPECIMENOrdering Facility: [facility] Address:[address] [place], [place] [address]Performed By: #### 93527-0 ####[facility] LABCLIA [id number] [place] [address] [place] AMERICAChloride [Moles/Vol] 105 mmol/PUrrniz43-756MiavvfgpxGeorgetown Behavioral Hospital on above:Order Comment: Specimen Type: BLOOD SPECIMENOrdering Facility: [facility] Address:[address] [place], [place] [address]Performed By: #### 56138-0 ####[facility] LABIA [id number] [place] [address] [place] AMERICACO2 [Moles/Vol]21 mmol/GCqp05-42 [facility] on above:Order Comment: Specimen Type: BLOOD SPECIMENOrdering Facility: [facility] Address:[address] [place], [place] [address]Performed By: #### 85844-6 ####[facility] LABIA [id number] [place] [address] [place] AMERICACreatinine [Mass/Vol]0.49 mg/dLLow0.58-0.96[facility] Comment on above:Order Comment: Specimen Type: BLOOD SPECIMENOrdering Facility: [facility] Address:[address] [place] [address] Performed By: #### 92360-8 ####[facility]ENTERIA [id number] [place] [address] [place] Creatinine and Glomerular filtration rate.predicted panel (S/P/Bld)120 mL/min/1.73m???Normal>=60[facility] on above:Order Comment: Specimen Type: BLOOD SPECIMENOrdering Facility: [facility] Address:[address] [place], [place] [address]Result Comment: Estimated Glomerular Filtration Rate (eGFR) is [...] not accurately reflect actual GFR.Performed By: #### 80265-5 ####[facility] LABIA [id number] [place] [address] [place] AMERICAGlucose [Mass/Vol]155 mg/dLHigh 74-99[facility] on above:Order Comment: Specimen Type: BLOOD SPECIMENOrdering Facility: [facility] Address:[address] [place], [place] [address]Result Comment: The [place] Diabetes Association (ADA) provides guidance for cutoff [...] Standards of Medical Care in Diabetes 2016, [place] Diabetes Association. Diabetes Care. 2016.39(Suppl 1).Performed By: #### 82647-8 ####[facility] LABCLIA [id number] [place] [address] [place] AMERICAPotassium [Moles/Vol]3.8 mmol/L Normal3.7-5.1CThe [facility] on above:Order Comment: Specimen Type: BLOOD SPECIMENOrdering Facility: [facility] Address:[address] [place], [place] [address]Performed By: #### 97484-0 ####[facility] LABCLIA [id number] [place] [address] [place] AMERICAProtein [Mass/Vol]6.6 g/dLNormal6.3-8.0[facility] on above:Order Comment: Specimen Type: BLOOD SPECIMENOrdering Facility: [facility] Address:[address] [place], [place] [address]Performed By: #### 89316-6 ####[facility] LABCLIA [id number] [place] [address] [place] Sodium [Moles/Vol]140 mmol/BSicxse344-075Bhvhvsrkp Clinic ClevelandComment on above:Order Comment: Specimen Type: BLOOD SPECIMENOrdering Facility: [facility] Address:[address] [place], [place] [address]Performed By: #### 77156-1 ####[facility] LABCLIA [id number] [place] [address] [place] AMERICAUrea nitrogen [Mass/Vol]12 mg/dLNormal7-[facility] on above:Order Comment: Specimen Type: BLOOD SPECIMENOrdering Facility: [facility] Address:[address] [place], [place] [address]Performed By: #### 70265- 8 ####[facility] LABCLIA [id number] [place] [address] [place] AMERICAESR Westergren method (Bld) [Velocity]on 00-85-3668ELF (Bld) [Velocity]21 mm/hHighSelect Medical Trihealth Rehabilitation Hospital Interpretation and review of laboratory resultsAbnormalCleveland Kettering Health Greene MemorialESR (Bld) [Velocity]21 mm/hHigh0-20[facility] on above:Order Comment: Specimen Type: BLOOD SPECIMENOrdering Facility: [facility] Address:[address] [place], [place] [address]Performed By: #### 4537-7 ####[facility] LABCLIA [id number] [place] [address] [place] AMERICAFERRITIN BLDon 84-90-5094Pnbodalt [Mass/Vol]20.6 ng/mL14.7 - 205.1 ng/mLCleveland Austin Hospital And ClinicFOLATE SERUMon 03-33-1792Qbzyuw [Mass/Vol]11.1 ng/mL4.7 - PINF ng/mLCleveland [facility] Ferritin SerPl-mCncon 11-01-6008Wwrxaivh [Mass/Vol]20.6 ng/dGXsonnf54.7-205.1 [facility] on above:Order Comment: Specimen Type: BLOOD SPECIMENOrdering Facility: [facility] Address:[address] [place], [place] [address]Performed By: #### 17413-0, 6-4, 8, 2132-01 ####[facility] LABCLIA [id number] [place] [id number] [place] AMERICAFolate SerPl-mCncon 05-19-2024 Folate [Mass/Vol]11.1 ng/mLNormal>4.7CThe MetroHealth SystemComment on above: Order Comment: Specimen Type: BLOOD SPECIMENOrdering Facility: [facility] Address:[address] [place], [place] [address]Performed By: #### 81072- 8, 2275-4, 8, 2132-01 ####[facility] LABCLIA [id number] [place] [address] [place] AMERICAIron and Iron binding capacity panelon 41-01-7437Rxpdsmzaktvdzs and review of laboratory resultsAbnormalClevelcarolinas continuecare hospital at pineville ClinicIron [Mass/Vol]47 ug/dL41 - 186 ug/dLTrinity Health System Twin City Medical Centern binding capacity [Mass/Vol]420 ug/nQBash102 - 386 ug/dLSelect Medical Trihealth Rehabilitation HospitalIron/TIBC [Molar ratio]11.2 %Low15.0 - 57.0 %McKitrick HospitalIron [Mass/Vol]47 ug/cLPnltpf76-151KhcumbbvlMckitrick HospitalComment on above:Order Comment: Specimen Type: BLOOD SPECIMENOrdering Facility: [facility] Address:[address] [place], [place] [address]Performed By: #### 37791-8, 2275-4, 2283-12, 2132-01 ####[facility] LABCLIA [id number] [place] [address] [place] Iron binding capacity [Mass/Vol]420 ug/lFMpjs285-611XtrahrknjMckitrick Hospital Comment on above:Order Comment: Specimen Type: BLOOD SPECIMENOrdering Facility: [facility] Address:[address] [place] [address] Performed By: #### 79151-1, 2275-4, 2283-12, 2132-01 ####[facility] LABCLIA [id number] [address] [address] [place] AMERICAIron/TIBC [Molar ratio]11.2 %Low15.0-57.0[facility] on above:Order Comment: Specimen Type: BLOOD SPECIMENOrdering Facility: [facility] Address:[address] [place], [place] [address]Performed By: #### 81811-7, 2275-4, 2283-12, 2132-01 ####[facility] LABCLIA [id number] [place] [id number] [place] [facility] Panel Informationon 93-47-5401Zqbmfeehrarydy and review of laboratory resultsNormalCSalem City HospitalVITAMIN B12 BLOODon 93-64-5859Uuxjnpnkn (Vitamin B12) [Mass/Vol]632 pg/mL232 - 1245 pg/mL [facility] HospitalVit B12 SerPl-mCncon 84-47-6399Cqyegyicc (Vitamin B12) [Mass/Vol]632 pg/lREvqgqw937-8512IahqphjswThe [facility] on above: Order Comment: Specimen Type: BLOOD SPECIMENOrdering Facility: [facility] Address:[address] [place], [place] [address]Performed By: #### 85692- 8, 4, 2283-12, 2132-01 ####[facility] LABCLIA [id number] [place] [address] [place] AMERICACNNURSE on 17-03-2035KOEVLMDPxygdbEfaytpfhp Clinic ClevelandCNPNon 63-81-5288HJOFUhwdvh [facility] CBC WITH AUTO DIFFon 12-63-9963FZYTGBUGQ ABSOLUTE AUTO0.1NOMS HealthcareBasophils/100 WBC (Bld)0.4 %0.2 - 2.0 %[facility] Eosinophils/100 WBC (Bld)0.4 %Low0.9 - 7.0 %NOMS HealthcareErythrocyte distribution width (RBC) [Ratio]15.1 %High11.0 - 15.0 %[facility] Medical CenterHematocrit (Bld) [Volume fraction]39.7 %36.0 - 48.0 %[facility] CenterHemoglobin (Bld) [Mass/Vol]13 g/dL12.0 - 16.0 g/dLMissouri Delta Medical CenterIMMATURE GRANULOCYTES ABS AUTO 0.1HighNOKansas City VA Medical CenterImmature granulocytes/100 WBC (Bld)0.9 %High0.0 - 0.5 % [facility] CenterInterpretation and review of laboratory resultsAbnormalMissouri Delta Medical CenterLYMPHOCYTES ABSOLUTE AUTO2.1NOMS [facility] Cr[facility] HospitalLymphocytes/100 WBC (Bld) 18.4 %Low20.5 - 60.0 %[facility] (RBC) [Entitic mass]30.9 pg26.7 - 34.0 pgCapital Region Medical Center (RBC) [Mass/Vol]32.7 g/dL29.9 - 35.2 g/dLMissouri Delta Medical Center MCV (RBC) [Entitic vol]94.3 fL81.0 - 99.0 fLMissouri Delta Medical CenterMONOCYTES ABSOLUTE AUTO0.8NOKansas City VA Medical CenterMonocytes/100 WBC (Bld)6.7 %1.7 - 12.0 %[facility] NEUTROPHILS ABSOLUTE AUTO8.3HighMissouri Delta Medical CenterNeutrophils/100 WBC (Bld)73.2 % 43.0 - 75.0 %[facility] Medical CenterPlatelet mean volume (Bld) [Entitic vol]10.1 fL9.5 - 13.5 fLMissouri Delta Medical CenterTB EO #0.1NOMS [facility] DGX332XFONCameron Regional Medical Center RBC 4.21NOCameron Regional Medical Center WBC11.4HighMissouri Delta Medical CenterCLINISYNCNSaint Mary's Hospital [facility] THYROID STIM HORMONEon 54-29-7192Iuljypmmliepql and review of laboratory results AbnormalPhelps Health Qn0.333 m[IU]/LLowNortheast Regional Medical Center THYROXINE (T4) FREEon 18-84-7399Oejr T4 [Mass/Vol]1.01 ng/dL0.76 - 1.46 ng/dLMissouri Delta Medical Center CLINISYNCMissouri Delta Medical CenterCCF APTTon 32-12-4744uRND Coag (Bld) [Time]25.6 [facility] CenterR HEMOGLOBIN A1Con 76-05-0324Guefzgt [Mass/Vol]134 mg/dLMissouri Delta Medical CenterHbA1c (Bld) [Mass fraction]6.3 %High4.5 - 6.2 %[facility] HealthcareComment on above:ADA RECOMMENDED LIMIT 4.0 - 6.0 ADA THERAPEUTIC TARGET < 7.0 ACTION SUGGESTED > 7.0 Interpretation and review of laboratory resultsAbnormalNOMD HealthcareCLINISYNCHILDREN'S MERCY [facility]ITAL HealthcareNo Panel Informationon 14-77-1859WQOGAFJEJBAUM Healthcare CLINISYNCPemiscot Memorial Health SystemsOH PROTHROMBIN TIME INR W/O COUMon 85-06-3142VG Coag (PPP) [Time]9.6 [facility] INR<0.93NOMD HealthcareComment on above: DESIRED INR: 2.0-3.0 CONDITIONS NOT LISTED BELOW 2.5-3.5 FOR PROSTHETIC HEART VALVE REPLACEMENT 2.5-3.5 RECURRENT THROMBOSIS TBH PREG QUANT HCGon 24-70-4155DRR QUANTITATIVE<1mIU/mLNOMS HealthcareComment on above:5-50 0.2-1 WEEK 50-500 1-2 WEEKS 100-5,000 2-3 WEEKS 500-10,000 3-4 WEEKS 1,000-50,000 4-5 WEEKS 10,000-100,000 5-6 WEEKS 15,000-200,000 6-8 WEEKS 10,000-100,000 2-3 MONTHS CNPNon 37-77-7157ITVFMixetbTpfafbaym Clinic Gcsfgmqyh37([place])D3 SerPl-[facility] Hospitalon 853216-qzqntsxuhantsj D3 [Mass/Vol]19.9 ng/mLLow31.0-80.0Mckitrick HospitalComment on above:Order Comment: Specimen Type: BLOOD SPECIMENOrdering Facility: [facility] Address:[address] [place], [place] [address]Result Comment: Classification of 25 [place] Vitamin D status:Deficiency/Insufficiency: < or = 30 ng/ml.Sufficiency/Optimal Levels: 31- 80 ng/mLToxicity: > 100 ng/mL.Test performed by chemiluminescent immunoassay. Performed By: #### 1989-3 ####[facility] LABCLIA [id number] [place] [address] [place] BLOOD TB SCREENon 03-23-2024M. tuberculosis tuberculin stim IFN-g Ql (Bld) NegativeNormalCThe [facility] on above:Order Comment: Specimen Type: BLOOD SPECIMENOrdering Facility: [facility] Address:[address] [place], [place] [address]Performed By: #### INFTBP ####[facility] LABCLIA [id number] [place] [address] [place] AMERICAMITOGEN MINUS NIL>10.00Normal>=0.50[facility] on above:Order Comment: Specimen Type: BLOOD SPECIMENOrdering Facility: [facility] Address:[address] [place], [place] [address]Performed By: #### INFTBP ####[facility] LABCLIA [id number] [place] [address] [place] TB GAMMA INTERPRETATIONNormalCThe [facility] on above:Order Comment: Specimen Type: BLOOD SPECIMENOrdering Facility: [facility] Address:[address] [place], [place] [address]Performed By: #### INFTBP ####[facility] LABCLIA [id number] [place] [address] [place] AMERICATB NIL<0.00Normal<=8.00[facility] on above:Order Comment: Specimen Type: BLOOD SPECIMENOrdering Facility: [facility] Address:[address] [place], [place] [address]Performed By: #### INFTBP ####[facility] LABCLIA [id number] [place] [address] [place] AMERICATB1 AG MINUS NIL0.00 IU/mLNormal<0.35[facility] on above:Order Comment: Specimen Type: BLOOD SPECIMENOrdering Facility: [facility] Address:[address] [place], [place] [address]Performed By: #### INFTBP ####[facility] LABCLIA [id number] [place] [address] [place] AMERICATB2 AG MINUS NIL0.00 IU/mLNormal<0.35[facility] on above:Order Comment: Specimen Type: BLOOD SPECIMENOrdering Facility: [facility] Address:[address] [place], [place] [address]Performed By: #### INFTBP ####[facility] LABBRATTLEB[facility] [id number] [place] [address] [place] AMERICABacteria Bld Culton 03-23-2024 Bacteria identified Cx Nom (Bld)CULTURE, BLOOD: No growth 5 daysNormalCThe [facility] on above:Performed By: #### 600-7 ####[facility] [id number] [address] STATES OF AMERICACB W Auto Differential panel (Bld)on 47-65-0655Ksznjleep (Bld) [#/Vol]0.06 10*3/uLNormal <0.11CThe [facility] on above:Order Comment: Specimen Type: BLOOD SPECIMENOrdering Facility: [facility] Address:[address] [place], [place] [address]Performed By: #### 03079-7 ####[facility] LABCLIA [id number] [place] [address] Basophils/100 WBC (Bld)0.5 %NormalGeorgetown Behavioral Hospital on above: Order Comment: Specimen Type: BLOOD SPECIMENOrdering Facility: [facility] Address:[address] [place], [place] [address]Performed By: #### 34798- 8 ####[facility] LABIA [id number] [place], [place] [address]Unroseszkukb cell count method Nom (Bld)AutoNormal [facility] on above:Order Comment: Specimen Type: BLOOD SPECIMENOrdering Facility: [facility] Address:[address] [place], [place] [address]Performed By: #### 07290-5 ####[facility] LABCLIA [id number] [place], [place] [address]Mowtuqddkck (Bld) [#/Vol]0.13 10*3/uLNormal<0.46[facility] on above: Order Comment: Specimen Type: BLOOD SPECIMENOrdering Facility: [facility] Address:[address] [place], [place] [address]Performed By: #### 31913- 8 ####[facility] LABCLIA [id number] [place], [place] [address]Rrkmjdouslb/100 WBC (Bld)1.0 %NormalGeorgetown Behavioral Hospital on above:Order Comment: Specimen Type: BLOOD SPECIMENOrdering Facility: [facility] Address:[address] [place], [place] [address]Performed By: #### 89528-7 ####[facility] LABIA [id number] [place], [place] [address]Ripydgzzqpb distribution width (RBC) [Ratio]15.2 %High11.5-15.0[facility] on above:Order Comment: Specimen Type: BLOOD SPECIMENOrdering Facility: [facility] Address:[address] [place], [place] [address]Performed By: #### 59734- 8 ####[facility] LABIA [id number] [place], [place] [address]Hvhlzcceuo (Bld) [Volume fraction]39.3 %Poeure67.0-46.0 [facility] on above:Order Comment: Specimen Type: BLOOD SPECIMENOrdering Facility: [facility] Address:[address] [place], [place] [address]Performed By: #### 04419-0 ####[facility] LABIA [id number] [place], [place] [address]Xtydixhsld (Bld) [Mass/Vol]13.1 g/bOYrsobk65.5-15.5CThe [facility] on above: Order Comment: Specimen Type: BLOOD SPECIMENOrdering Facility: [facility] Address:[address] [place], [place] [address]Performed By: #### 72228- 8 ####[facility] LABCLIA [id number] [place], [place] [address]Rclkwvwz granulocytes (Bld) [#/Vol]0.12 10*3/uLHigh<0.10 [facility] on above:Order Comment: Specimen Type: BLOOD SPECIMENOrdering Facility: [facility] Address:[address] [place], [place] [address]Performed By: #### 52537-7 ####[facility] LABCLIA [id number] [place], [place] [address]Gvjwnlcj granulocytes/100 WBC (Bld)0.9 %[facility] on above: Order Comment: Specimen Type: BLOOD SPECIMENOrdering Facility: [facility] Address:[address] [place], [place] [address]Performed By: #### [id number] ####[facility] LABCLIA [id number] [place], [place] [address]Dtzfomscghs (Bld) [#/Vol]2.03 10*3/uLNormal1.00-4.00 [facility] on above:Order Comment: Specimen Type: BLOOD SPECIMENOrdering Facility: [facility] Address:[address] [place], [place] [address]Performed By: #### [id number] ####[facility] LABIA [id number] [place], [place] [address]Pgbiksjhisj/100 WBC (Bld)15.7 %NormalGe[facility]al [facility] on above:Order Comment: Specimen Type: BLOOD SPECIMENOrdering Facility: [facility] HOSPITAL Address:[address] [place], [place] [address]Performed By: #### 77265-8 ####[facility] LABCLIA [id number] [place], [place] [address]UHW (RBC) [Entitic mass]31.3 vwHouiul75.0-34.0[facility] on above:Order Comment: Specimen Type: BLOOD SPECIMENOrdering Facility: [facility] Address:[address] [place], [place] [address]Performed By: #### 64009-7 ####[facility] LABCLIA [id number] [place], [place] [address]KLUG (RBC) [Mass/Vol]33.3 g/cYUbudfo36.5-36.0[facility] on above: Order Comment: Specimen Type: BLOOD SPECIMENOrdering Facility: [facility] Address:[address] [place], [place] [address]Performed By: #### 59827- 8 ####[facility] LABCLIA [id number] [place], [place] [address]IEH (RBC) [Entitic vol]93.8 oQXdkenm09.0-100.0[facility] on above:Order Comment: Specimen Type: BLOOD SPECIMENOrdering Facility: [facility] Address:[address] [place], [place] [address]Performed By: #### 92156-0 ####[facility] LABCLIA [id number] [place], [place] [address]Wdjrujysm (Bld) [#/Vol]0.65 10*3/uLNormal<0.87[facility] on above:Order Comment: Specimen Type: BLOOD SPECIMENOrdering Facility: [facility] Address:[address] [place], [place] [address]Performed By: #### 14864- 8 ####[facility] LABIA [id number] [place], [place] [address]Tazhoptqs/100 WBC (Bld)5.0 %NormalGeorgetown Behavioral Hospital on above:Order Comment: Specimen Type: BLOOD SPECIMENOrdering Facility: [facility] Address:[address] [place], [place] [address]Performed By: #### 54381-6 ####[facility] LABCLIA [id number] [place], [place] [address]Zmvobszgqwz (Bld) [#/Vol]9.90 10*3/uLHigh1.45-7.50[facility] on above:Order Comment: Specimen Type: BLOOD SPECIMENOrdering Facility: [facility] Address:[address] [place], [place] [address]Performed By: #### 61958-1 ####[facility] LABCLIA [id number] [place], [place] [address]Tphbolebehy/100 WBC (Bld)76.9 %NormalGeorgetown Behavioral Hospital on above:Order Comment: Specimen Type: BLOOD SPECIMENOrdering Facility: [facility] Address:[address] [place], [place] [address]Performed By: #### 19798-3 ####[facility] LABCLIA [id number] [place], [place] [address]Sbfovcfdw RBC (Bld) [#/Vol] 10*3/uLNormal<0.01[facility] on above:Order Comment: Specimen Type: BLOOD SPECIMENOrdering Facility: [facility] Address:[address] [place], [place] [address]Performed By: #### 96107-0 ####[facility] LABCLIA [id number] [place], [place] [address]Hbrakttnx RBC/100 WBC (Bld) [Ratio]0.0 /100 WBCNormal [facility] on above:Order Comment: Specimen Type: BLOOD SPECIMENOrdering Facility: [facility] Address:[address] [place], [place] [address]Performed By: #### 47180-9 ####[facility] LABCLIA [id number] [place], [place] [address]Lncnthwn mean volume (Bld) [Entitic vol]10.0 fLNormal9.0-12.7CThe [facility] on above:Order Comment: Specimen Type: BLOOD SPECIMENOrdering Facility: [facility] Address:[address] [place] [address] Performed By: #### 41371-5 ####[facility] LABCLIA [id number] [place], [place] [address]Nbuspdqwv (Bld) [#/Vol]262 10*3/zAVxizpd021-017XqhpsacbsGeorgetown Behavioral Hospital on above:Order Comment: Specimen Type: BLOOD SPECIMENOrdering Facility: [facility] Address:[address] [place], [place] [address]Performed By: #### 20753-5 ####[facility] LABCLIA [id number] [place], [place] [address]SPL (Bld) [#/Vol]4.19 10*6/uLNormal3.90-5.20[facility] on above:Order Comment: Specimen Type: BLOOD SPECIMENOrdering Facility: [facility] Address:[address] [place], [place] [address]Performed By: #### 97514-4 ####[facility] LABCLIA [id number] [place], [place] [address]BHM (Bld) [#/Vol]12.89 10*3/uLHigh3.70-11.00[facility] on above: Order Comment: Specimen Type: BLOOD SPECIMENOrdering Facility: [facility] Address:[address] [place], [place] [address]Performed By: #### 76012- 8 ####[facility] LABCLIA [id number] [place], [place] [address]BTANTWVli 84-99-7390HSVKLFANetiuiThvyecqdv Clinic ClevelandCR SerPl-mCncon 12-14-2411RFH [Mass/Vol]0.3 mg/dLNormal<0.9ClevelFairfield Medical Center on above:Order Comment: Specimen Type: BLOOD SPECIMENOrdering Facility: [facility] Address:[address] [place], [place] [address]Performed By: #### 58438-3, 2276-4, 1987-09 ####[facility] LABCLIA [id number] [place] [id number] [place] OF AMERICAComprehensive metabolic 2000 panelon 03-23-2024 Albumin [Mass/Vol]3.9 g/dLNormal3.9-4.9CThe [facility] on above:Order Comment: Specimen Type: BLOOD SPECIMENOrdering Facility: [facility] Address:[address] [place], [place] [address]Performed By: #### 53528-5 ####[facility] LABCLIA [id number] [address] [address] [place] AMERICAALP [Catalytic activity/Vol]70 U/JXlzgyd54-017LdhiebqppGeorgetown Behavioral Hospital on above:Order Comment: Specimen Type: BLOOD SPECIMENOrdering Facility: [facility] Address:[address] [place], [place] [address]Performed By: #### 66344- 8 ####[facility] LABCLIA [id number] [place] [id number] [place] AMERICAALT [Catalytic activity/Vol]27 U/LNormal7-38[facility] on above:Order Comment: Specimen Type: BLOOD SPECIMENOrdering Facility: [facility] Address:[address] [place], [place] [address]Performed By: #### 46188-2 ####[facility] LABCLIA [id number] [place] [id number] [place] AMERICAAnion gap [Moles/Vol]15 mmol/LNormal8-15[facility] on above:Order Comment: Specimen Type: BLOOD SPECIMENOrdering Facility: [facility] Address:[address] [place], [place] [address]Performed By: #### 29011-1 ####[facility] LABCLIA [id number] [place] [address] [place] AST [Catalytic activity/Vol]20 U/POpslwy17-99AevorpbqhGeorgetown Behavioral Hospital on above:Order Comment: Specimen Type: BLOOD SPECIMENOrdering Facility: [facility] Address:[address] [place] [address] Performed By: #### 46861-0 ####[facility] LABCLIA [id number] [place] [address] [place] Bilirubin [Mass/Vol]mg/dLLow0.2-1.3CThe [facility] on above: Order Comment: Specimen Type: BLOOD SPECIMENOrdering Facility: [facility] Address:[address] [place], [place] [address]Performed By: #### 31367- 8 ####[facility] LABCLIA [id number] [place] [address] [place] AMERICACalcium [Mass/Vol]9.2 mg/dLNormal 8.5-10.2CThe [facility] on above:Order Comment: Specimen Type: BLOOD SPECIMENOrdering Facility: [facility] Address:[address] [place], [place] [address]Performed By: #### 99990-4 ####[facility] LABCLIA [id number] [place] [address] [place] AMERICAChloride [Moles/Vol]104 mmol/CQnulbk39-338BwfzixbuwGeorgetown Behavioral Hospital on above:Order Comment: Specimen Type: BLOOD SPECIMENOrdering Facility: [facility] Address:[address] [place], [place] [address]Performed By: #### 47492-8 ####[facility] LABIA [id number] [place] [address] [place] AMERICACO2 [Moles/Vol]20 mmol/EGdj49-45BtvjldwrbGeorgetown Behavioral Hospital on above:Order Comment: Specimen Type: BLOOD SPECIMENOrdering Facility: [facility] Address:[address] [place], [place] [address]Performed By: #### 57176-2 ####[facility]ENTERIA [id number] [place] [address] [place] AMERICACreatinine [Mass/Vol] 0.61 mg/dLNormal0.58-0.96[facility] on above:Order Comment: Specimen Type: BLOOD SPECIMENOrdering Facility: [facility] Address:[address] [place], [place] [address]Performed By: #### 27794- 8 ####[facility] [id number] [place] [address] [place] AMERICACreatinine and Glomerular filtration rate.predicted panel (S/P/Bld)114 mL/min/1.73m???Normal>=60[facility] on above:Order Comment: Specimen Type: BLOOD SPECIMENOrdering Facility: [facility] Address:[address] [place], [place] [address]Result Comment: Estimated Glomerular Filtration Rate (eGFR) is calculated using the 2020 CKD-EPI creatinine equation. This equation utilizes serum creatinine, sex, and age as parameters. The creatinine assay has traceable calibration to isotope dilution-mass spectrometry. Refer to KDIGO guidelines for clinical interpretation. In patients with unstable renal function, e.g. those with acute kidney injury, the eGFR may not accurately reflect actual GFR.Performed By: #### 54174-4 ####[facility] LABIA [id number] [place] [address] [place] AMERICAGlucose [Mass/Vol]152 mg/sJVlht60-33WsonnlsvvGeorgetown Behavioral Hospital on above:Order Comment: Specimen Type: BLOOD SPECIMENOrdering Facility: [facility] Address:[address] [id number] Comment: The [place] Diabetes Association (ADA) provides guidance for cutoff [...] Standards of Medical Care in Diabetes 2016, [place] Diabetes Association. Diabetes Care. 2016.39(Suppl 1).Performed By: #### 54454-6 ####[facility] LABCLIA [id number] [place] [address] [place] AMERICAPotassium [Moles/Vol]4.3 mmol/LNormal3.7-5.1CThe [facility] Comment on above:Order Comment: Specimen Type: BLOOD SPECIMENOrdering Facility: [facility] Address:[address] [place] [address] Performed By: #### 78193-4 ####[facility] LABIA [id number] [place] [address] [place] Protein [Mass/Vol]6.6 g/dLNormal6.3-8.0Mckitrick HospitalComment on above:Order Comment: Specimen Type: BLOOD SPECIMENOrdering Facility: [facility] Address:[address] [place], [place] [address]Performed By: #### 61614-9 ####[facility] LABIA [id number] [place] [address] [place] AMERICASodium [Moles/Vol]139 mmol/UWjqdui267-464QzbwihaoaMckitrick HospitalComhawthorn center on above:Order Comment: Specimen Type: BLOOD SPECIMENOrdering Facility: [facility] Address:[address] [place], [place] [address]Performed By: #### 91442-7 ####[facility]ENTERIA [id number] [place] [address] [place] AMERICAUrea nitrogen [Mass/Vol]20 mg/dL Normal7-21[facility] on above:Order Comment: Specimen Type: BLOOD SPECIMENOrdering Facility: [facility] Address:[address] [place] [address]Performed By: #### 28628-8 ####[facility]ENTERIA [id number] [place] [address] [place] AMERICAESR Westergren method (Bld) [Velocity]on 54-00-1646NJK (Bld) [Velocity]27 mm/hHigh0-20[facility] on above:Order Comment: Specimen Type: BLOOD SPECIMENOrdering Facility: [facility] Address:[address] [place] [address]Performed By: #### 4537-7 ####[facility] [id number] [place] [address] [place] AMERICAFerritin SerPl-mCncon 03-23-2024 Ferritin [Mass/Vol]33.3 ng/hREezrvc88.7-205.1CThe [facility] on above:Order Comment: Specimen Type: BLOOD SPECIMENOrdering Facility: [facility] Address:[address] [place] [address] Performed By: #### 91644-0, 2276-4, 1987- ####[facility] [id number] [place] [address] [place] AMERICAFolate SerPl-mCncon 84-34-7781Zhrkjc [Mass/Vol]13.0 ng/mLNormal>4.7 [facility] on above:Order Comment: Specimen Type: BLOOD SPECIMENOrdering Facility: [facility] Address:[address] [place], [place] [address]Performed By: #### 2132-9, 2284-8 ####[facility] LABCLIA [id number] [place] [address] [place] AMERICAHCG ( test) Ql (U)on 01-78-7002Xenjwxjzxpkkix and review of laboratory resultsNormalNOMS HealthcarePreg Test, UrNegativeNegative NOMS HealthcareNOMS HealthcareIMMUNOGLOBULINS,IGG,IGA,IGMon 47-85-6288KpC [Mass/Vol]171 mg/iAOhbvpk39-318ZerlcagonGeorgetown Behavioral Hospital on above:Order Comment: Specimen Type: BLOOD SPECIMENOrdering Facility: [facility] Address:[address] [place], [place] [address]Performed By: #### SERIMM ####[facility] LABCLIA [id number] [place] [address] [place] AMERICAIgG [Mass/Vol]476 mg/dLLow 700-1600[facility] on above:Order Comment: Specimen Type: BLOOD SPECIMENOrdering Facility: [facility] Address:[address] [place] [address]Performed By: #### SERIMM ####[facility] LABCLIA [id number] [place] [address] [place] AMERICAIgM [Mass/Vol]373 mg/nYDnyl39-351YgjwyvmmpGeorgetown Behavioral Hospital on above:Order Comment: Specimen Type: BLOOD SPECIMENOrdering Facility: [facility] Address:[address] [place], [place] [address]Performed By: #### SERIMM ####[facility] LABCLIA [id number] [place] [address] [place] [employer] binding capacity panelon 48-85-1097Jzok [Mass/Vol]67 ug/dLNormal 41-186[facility] on above:Order Comment: Specimen Type: BLOOD SPECIMENOrdering Facility: [facility] Address:[address] [place], [place] [address]Performed By: #### 96282-1, 2275-08, 1987-09 ####[facility] LABCLIA [id number] [place] [id number] [place] AMERICAIron binding capacity [Mass/Vol] 399 ug/uYCday818-460FcaqkjznbMckitrick HospitalComment on above:Order Comment: Specimen Type: BLOOD SPECIMENOrdering Facility: [facility] Address:[address] [place], [place] [address]Performed By: #### 26691-2, 2275-08, 1987-09 ####[facility] LABCLIA [id number] [place] [address] [place] AMERICAIron/TIBC [Molar ratio]16.8 % Ttqerm05.0-57.0Mckitrick HospitalComment on above:Order Comment: Specimen Type: BLOOD SPECIMENOrdering Facility: [facility] Address:[address] [place], [place] [address]Performed By: #### 12434-9, 2275-08, 1987-09 ####[facility] LABIA [id number] [place] [address] [place] AMERICAUrinalysis macro (dipstick) panel (U)on 02-98-7305Nxmtgdurp, UANegativeNegative - 4(70) +++ mg/dLNOMS Healthcare Blood, [...] - 12 mg/dLNOMS HealthcareNOMS HealthcareVit B12 SerPl-mCncon 96-43-3754Whizmyuqx (Vitamin B12) [Mass/Vol]607 pg/nITnsvja134-4592Aawdqzsor Clinic ClevelandComment on above: Order Comment: Specimen Type: BLOOD SPECIMENOrdering Facility: [facility] Address:[address] [place], [place] [address]Performed By: #### 2132- 9, 2284-8 ####[facility] LABCLIA [id number] YAYONichole SORIANOManolo [place] [address] [place] OF AMERICAOffice Visiton 03-08-2024 Follow-up [id number] Ariadna Haley 1980 F Date Provider Department Center 03/08/2024 Renny-CALOS ARCE [facility] Family History Problem Relation Age of Onset Heart failure Maternal Grandmother Heart attack Maternal Grandfather Family Status - Relation Status Age at Maternal Grandmother Maternal Grandfather Level of Service:[address] PA OFFICE/OUTPATIENT NEW MODERATE MDM 45 MINUTESNormal [facility] Main CampusHCG ( test) IA.rapid Ql (U)Ordered By: Adolfo Kang on 90-89-9934VWM ( test) Ql (U)NegativeCleveland Clinic Marymount HospitalECG 12 [place] 47-96-5845XQA revealed normal sinus rhythm CPAOhioHealth Mansfield Hospital Work Phone: CBC AUTO DIFFon 91-29-0240AVCT #0.1 103/ulNormal 0.0-0.1The [facility] HospitalComment on above:Performed By: #### UAMIC #### [facility] [address] [address] [address] Manda YorkBasophils/100 WBC (Bld)0.6 %Normal0.2-2.0The [facility] Comment on above:Performed By: #### UAMIC #### [facility] [address] [place] [address] Dr. Manda Shafer #0.1 103/ulNormal0.0-0.7The [facility] HospitalComment on above: Performed By: #### UAMIC #### [facility] [address] [place] [address] Dr. Manda Noonanosinophils/100 WBC (Bld)0.6 %Critically low0.9-7.0The [facility] HospitalComment on above:Performed By: #### UAMIC #### [facility] [address] [place] [address] Dr. Manda Noonanrythrocyte distribution width (RBC) [Ratio]14.6 %Tcjnur20.0-15.0 The [facility] HospitalComment on above:Performed By: #### UAMIC #### [facility] [address] [place] [address] Dr. Manda YorkHematocrit (Bld) [Volume fraction]43.4 %Zocoml04.0-48.0The [facility] HospitalComment on above:Performed By: #### UAMIC #### [facility] [address] [place] [address] Dr. Manda YorkHemoglobin (Bld) [Mass/Vol]13.7 g/vLKhuaui47.0-16.0The [facility] HospitalComment on above:Performed By: #### UAMIC #### [facility] [address] [place] [address] Dr. Manda Calderon #0.12 10e3/ulCritically high0.00-0.03The [facility] Comment on above:Performed By: #### UAMIC #### [facility] [address] [place] [address] Dr. Manda Calderon %0.8 %Critically high0.0-0.5The [facility] HospitalComment on above:Performed By: #### UAMIC #### [facility] [address] [place] [address] Dr. Manda Laguna #2.6 103/ulNormal1.2-3.8The [facility] HospitalComment on above:Performed By: #### UAMIC #### [facility] [address] [place] [address] Dr. Manda Bolañosmphocytes/100 WBC (Bld)18.3 %Critically low20.5-60.0The [facility] HospitalComment on above:Performed By: #### UAMIC #### [facility] [address] [place] [address] Dr. Manda Richards DIFF REQNONormalThe [facility] HospitalComment on above: Performed By: #### UAMIC #### [facility] [address] [place] [address] Dr. Manda Cardoso (RBC) [Entitic mass]29.0 sbLylmfp21.7-34.0The [facility] HospitalComment on above:Performed By: #### UAMIC #### [facility] [address] [place] [address] Dr. Manda Cardoso (RBC) [Mass/Vol]31.6 g/fQDfubqg00.9-35.2The [facility] HospitalComment on above:Performed By: #### UAMIC #### [facility] [address] [place] [address] Dr. Manda Bradshaw (RBC) [Entitic vol]91.8 hAIdhshx65.0-99.0The [facility] HospitalComment on above:Performed By: #### UAMIC #### [facility] [address] [place] [address] Dr. Manda Maciel #0.7 103/ulNormal0.3-0.8The [facility] HospitalComment on above:Performed By: #### UAMIC #### [facility] [address] [place] [address] Dr. Manda Coteocytes/100 WBC (Bld)5.1 %Normal1.7-12.0The [facility] Comment on above:Performed By: #### UAMIC #### [facility] [address] [place] [address] Dr. Manda Claudio #10.6 103/ulCritically high1.4-6.5The [facility] Comment on above:Performed By: #### UAMIC #### [facility] [address] [place] [address] Dr. Manda Longutrophils/100 WBC (Bld)74.6 %Tlerrw19.0-75.0The [facility] HospitalComment on above:Performed By: #### UAMIC #### [facility] [address] [place] [address] Dr. Manda YorkPlatelet mean volume (Bld) [Entitic vol]9.4 fLCritically low 9.5-13.5The [facility] HospitalComment on above:Performed By: #### UAMIC #### [facility] [address] [place] [address] Dr. Manda YorkPLT307 103/igRkvrhs395-626Dep [facility] HospitalComment on above: Performed By: #### UAMIC #### [facility] [address] [place] [address] Dr. Manda YorkRBC4.73 106/ulNormal4.20-5.40The [facility] HospitalComment on above:Performed By: #### UAMIC #### [facility] [address] [place] [address] Dr. Manda YorkWBC14.2 103/ulCritically high4.0-11.0Chillicothe HospitalComment on above:Performed By: #### UAMIC #### [facility] [address] [place] [address] Dr. Manda YorkFREE T4on 08-52-1729Fsxy T4 [Mass/Vol]1.31 ng/dLNormal0.76-1.46 The [facility] HospitalComment on above:Performed By: #### FT4 #### [facility] [address] [place] [address] Dr. Manda YorkGLYCOHEMOGLOBIN A1Con 52-27-5552KRI RECOMMENDATIONSEE BELOWNormal The [facility] HospitalComment on above:Result Comment: ADA RECOMMENDED LIMIT 4.0 - 6.0 ADA THERAPEUTIC TARGET < 7.0 ACTION SUGGESTED > 7.0Performed By: #### A1C #### [facility] [address] [place] [address] Dr. Manda YorkGlucose [Mass/Vol]120 mg/dLWexner Medical CenterComment on above:Performed By: #### A1C #### [facility] [address] [place] [address] Dr. Manda YorkHbA1c (Bld) [Mass fraction]5.8 %Normal4.5-6.2Chillicothe HospitalComment on above:Performed By: #### A1C #### [facility] [address] [place] [address] Dr. Manda Howe QUANT HCGon 97-83-2068HBM QUANT<1NormalThe [facility] Comment on above:Performed By: #### FT4 #### [facility] [address] [place] [address] Dr. Manda Renee RANGESEE BELOWWexner Medical CenterComment on above: Result Comment: 5-50 0.2-1 WEEK 50-500 1-2 WEEKS 100-5,000 2-3 WEEKS 500-10,000 3-4 WEEKS 1,000-50,000 4-5 WEEKS 10,000-100,000 5-6 WEEKS 15,000-200,000 6-8 WEEKS 10,000-100,000 2-3 MONTHSPerformed By: #### FT4 #### [facility] [address] [place] [address] Dr. Manda YorkPROTIMEon 67-40-5064TBP Coag (PPP) [Relative time]{INR}NormalChillicothe HospitalComment on above:Performed By: #### FT4 #### [facility] [address] [place] [address] Dr. Manda Bah GUIDELINESSEE German HospitalComment on above:Result Comment: DESIRED INR: 2.0 - 3.0 CONDITIONS NOT LISTED BELOW 2.5 - 3.5 FOR PROSTHETIC HEART VALVE REPLACEMENT 2.5 - 3.5 RECURRENT THROMBOSIS Performed By: #### FT4 #### [facility] [address] [place] [address] [address] Manda YorkPT Coag (PPP) [Time]9.6 sNormal9.0-11.6The [facility] Comment on above:Performed By: #### FT4 #### [facility] [address] [place] [address] Dr. Manda Crews [id number] Coag (Bld) [Time]28.2 wEqywpt23.3-36.2The [facility]iance HospitalComment on above:Performed By: #### FT4 #### [facility] [address] [place] [address] Dr. Manda Fowler 24-06-3384VEB5.300 uIU/mLCritically low0.358-3.740The [facility] HospitalComment on above:Performed By: #### FT4 #### [facility] [address] [place] [address] Dr. Manda Post PELVIS TRANSVAGon [id number] PELVIS TRANSVAGEXAMINATION: US PELVIS TRANSVAG HISTORY: Excessive [...] Electronically authenticated by: AURORA SHAIKH Date: 2022-09-24 17:50NormalThOhioHealth Marion [facility] Hospital ACOG PANEL 2: 30 to 65on 09-18-2022..NormalThe Waynesville HospitalComment on above:Result Comment: Performed at: WBPerformed By: #### FT4 #### [facility] [address] [place] [address] Dr. Manda Ceballos Gdln ACOG Tohmlor61-47DhcpkjClxMorrow County Hospital on above:Performed By: #### FT4 #### [facility] [address] [place] [address] Dr. Manda YorkDIAGNOSIS:CommentMount Carmel Health System on above: Result Comment: NEGATIVE FOR INTRAEPITHELIAL LESION OR MALIGNANCY. Performed at: WBPerformed By: #### FT4 #### [facility] [address] [place] [address] Dr. Manda Lawson AptimaNegativeNormalNegativeThe [facility] on above:Result Comment: This nucleic acid amplification test detects fourteen high-risk HPV types (16,18,31,33,35,39,45,51,52,56,58,59,66,68) without differentiation. Performed at: =GPerformed By: #### FT4 #### [facility] [address] [place] [address] Dr. Manda YorkHPTara Genotype ReflexCommentMount Carmel Health System on above:Result Comment: Criteria not met, HPV Genotype not performed. Performed at: WBPerformed By: #### FT4 #### [facility] [address] [place] [address] Dr. Manda YorkMethodology:CommentMount Carmel Health System on above: Result Comment: This liquid based ThinPrep(R) pap test was screened with the use of an image guided system. Performed at: WBPerformed By: #### FT4 #### [facility] [address] [place] [address] Dr. Manda YorkNote:CommentMount Carmel Health System on above:Result Comment: The Pap smear is a screening test designed to aid in the detection of premalignant and malignant conditions of the uterine cervix. It is not a diagnostic procedure and should not be used as the sole means of detecting cervical cancer. Both false-positive and false-negative reports do occur. . Performed at: WBPerformed By: #### FT4 #### [facility] [address] [address] [address] Manda YorkPerformed by:CommentMount Carmel Health System on above: Result Comment: Charles Peters, Hand Compositor (ASCP) Performed at: WBPerformed By: #### FT4 #### [facility] [address] [address] [address] Manda YorkSpecimen adequacy:CommentMount Carmel Health System on above:Result Comment: Satisfactory for evaluation. Endocervical and/or squamous metaplastic cells (endocervical component) are present. Performed at: Performed By: #### FT4 #### [facility] [address] [address] [address] Manda YorkCytology Cervical or vaginal smear or scraping studyOrdered By: Hazel Torres on [id number] Delta Medical CenterMG MAMM SCREEN 3D SELENE CADon 46-87-3896JG MAMM SCREEN 3D SELENE CADPatient: ARIADNA HALEY Exam Date: 09/01/2022 : 1980 Gender:F Ordering : DR MANUEL FERRIS . Admission #: [id number] Family : Order #: [id number] CLICK HERE TO VIEW EXAM RADIOLOGY REPORT [...] at age 56. LOCATION: [facility] BREAST COMPOSITION: Scattered areas fibroglandular density. [...] by: Sayda Yusuf M.D. on 09/02/2022 at 12:32[facility] CenterMRI KNEE RT WO CONon [id number] KNEE RT WO CONHISTORY: Right knee pain [...] Electronically authenticated by: MANUEL GOMEZ Date: 2022-04-01 08:24[facility] Medical CenterPNEUMOCOCCAL IGG ABS, 23 SEROTYPESon [id number] InterpretationSee NoteKettering Health Springfield. pneumoniae 1 IgG (S) [Mass/Vol]0.27 ug/mLCleveland ClinicS. pneumoniae 12 IgG (S) [Mass/Vol]0.08 ug/mLCleveland ClinicS. pneumoniae 14 IgG (S) [Mass/Vol]0.19 ug/mLCleveland ClinicS. pneumoniae 17 IgG (S) [Mass/Vol]1.72 ug/mLCleveland ClinicS. pneumoniae 19 IgG (S) [Mass/Vol]1.52 ug/mLCleveland ClinicS. pneumoniae 2 IgG (S) [Mass/Vol]0.44 ug/mL [facility]. pneumoniae 20 IgG (S) [Mass/Vol]1.53 ug/mLCleveland ClinicS. pneumoniae 22 IgG (S) [Mass/Vol]0.99 ug/mLCleveland ClinicS. pneumoniae 23 IgG (S) [Mass/Vol]0.14 ug/mLCleveland ClinicS. pneumoniae 3 IgG (S) [Mass/Vol]0.36 ug/mLCleveland ClinicS. pneumoniae 34 IgG (S) [Mass/Vol]5.77 ug/mLCleveland ClinicS. pneumoniae 4 IgG (S) [Mass/Vol]0.06 ug/mLCleveland ClinicS. pneumoniae 43 IgG (S) [Mass/Vol]0.93 ug/mLCleveland ClinicS. pneumoniae 5 IgG (S) [Mass/Vol]0.89 ug/mLCleveland ClinicS. pneumoniae 8 IgG (S) [Mass/Vol]0.58 ug/mL [facility]. pneumoniae 9 IgG (S) [Mass/Vol]0.4 ug/mLCleveland ClinicS. pneumoniae Salvadorean type 15B IgG (S) [Mass/Vol]8.27 ug/mLCleveland ClinicS. pneumoniae Salvadorean type 18C IgG (S) [Mass/Vol]0.39 ug/mLCleveland ClinicS. pneumoniae Salvadorean type 19A IgG (S) [Mass/Vol]17.72 ug/mLCleveland ClinicS. pneumoniae Salvadorean type 33F IgG (S) [Mass/Vol]3.04 ug/mLCleveland ClinicS. pneumoniae Salvadorean type 6B IgG (S) [Mass/Vol]0.82 ug/mLCleveland ClinicS. pneumoniae Salvadorean type 7F IgG (S) [Mass/Vol]0.34 ug/mLCleveland ClinicS. pneumoniae Salvadorean type 9V IgG (S) [Mass/Vol]0.78 ug/mLCleveland ClinicXR KNEE RT 4V or >on [id number] KNEE RT 4V or >IMAGES REVIEWED: XR KNEE RT 4V or > COMPARISON: None available. CLINICAL INDICATION: Injury of right knee FINDINGS/IMPRESSION: 1. No evidence of acute osseous abnormality of the right knee. 2. Nonspecific small suprapatellar effusion. 3. Mild anterior infrapatellar knee soft tissue swelling. Electronically authenticated by: KRISTINA GARRETT Date: 2022-03-21 16:[address] [place], [place] [address]DIPHTHER/TETANUS ABon 03-20-2022. diphtheriae IgG Qn (S)0.1 IU/mLCleveland ClinicC. tetani toxoid IgG IA Qn1 IU/mLCleveland ClinicIGA BLDon [id number] [Mass/Vol]182 mg/dL70 - 400 mg/dLSelect Medical Trihealth Rehabilitation HospitalIGE BLDon 61-94-1188EvP Qn12.3 kU/l<114.0 kU/lCleveland ClinicIGGon 99-39-8437JzH [Mass/Vol]618 mg/kEUvh467 - 1,600 mg/dLSelect Medical Trihealth Rehabilitation HospitalIGMon 18-02-4546WbS [Mass/Vol]514 mg/nRAaes66 - 230 mg/dLSelect Medical Trihealth Rehabilitation HospitalImmunodeficiency panel FC (Bld)on 62-04-2152WK9 cells (Bld) [#/Vol]2841 cells/jMZubj057 - 2,388 cells/uL [facility] HospitalCD3 cells/100 cells (Bld)81 %60 - 89 %[facility] HospitalCD3+CD4+ (T4 helper) cells (Bld) [#/Vol]1621 cells/uL533 - 1,674 cells/uLSelect Medical Trihealth Rehabilitation Hospital CD3+CD4+ (T4 helper) cells/100 cells (Bld)46 %34 - 61 %[facility] HospitalCD3+CD4+ (T4 helper) cells/CD3+CD8+ (T8 suppressor cells) cells (Bld) [# ratio]1.55 %1.10 - 3.25[facility] HospitalCD3+CD8+ (T8 suppressor cells) cells (Bld) [#/Vol]1049 cells/pKWlxt686 - 958 cells/uLSerena ClinicCD3+CD8+ (T8 suppressor cells) cells/100 cells (Bld)30 %10 - 41 %[facility] HospitalCD3-CD16+CD56+ (Natural killer) cells (Bld) [#/Vol]193 cells/uL102 - 565 cells/uLSelect Medical Trihealth Rehabilitation HospitalCD3- CD16+CD56+ (Natural killer) cells/100 cells (Bld)5 %5 - 25 %[facility] HospitalCD3- CD19+ cells (Bld) [#/Vol]475 cells/uL75 - 660 cells/uLSelect Medical Trihealth Rehabilitation HospitalCD3-CD19+ cells/100 cells (Bld)13 %5 - 22 %[facility] HospitalCB W Auto Differential panel (Bld)on 63-43-9344Ggufhbjgx (Bld) [#/Vol]0.07 10*3/uL<0.11 k/uLSelect Medical Trihealth Rehabilitation Hospital Basophils/100 WBC (Bld)0.6 %[facility] HospitalDifferential cell count method Nom (Bld)AutoCleveland ClinicEosinophils (Bld) [#/Vol]0.18 10*3/uL<0.46 k/uL [facility] HospitalEosinophils/100 WBC (Bld)1.6 %[facility] HospitalErythrocyte distribution width (RBC) [Ratio]14.6 %11.5 - 15.0 %[facility] HospitalHematocrit (Bld) [Volume fraction]40.5 %36.0 - 46.0 %[facility] HospitalHemoglobin (Bld) [Mass/Vol]13.0 g/dL11.5 - 15.5 g/dLSelect Medical Trihealth Rehabilitation HospitalImmature granulocytes (Bld) [#/Vol]0.06 10*3/uL<0.10 k/uLSelect Medical Trihealth Rehabilitation HospitalImmature granulocytes/100 WBC (Bld) 0.5 %[facility] HospitalLymphocytes (Bld) [#/Vol]2.97 10*3/uL1.00 - 4.00 k/uL [facility] HospitalLymphocytes/100 WBC (Bld)26.9 %[facility] HospitalH (RBC) [Entitic mass]28.4 pg26.0 - 34.0 pgClevelRedwood LLCHC (RBC) [Mass/Vol]32.1 g/dL30.5 - 36.0 g/dLGlenbeigh HospitalV (RBC) [Entitic vol]88.4 fL80.0 - 100.0 fLClevelcarolinas continuecare hospital at pineville ClinicMonocytes (Bld) [#/Vol]0.79 10*3/uL<0.87 k/uLSelect Medical Trihealth Rehabilitation Hospital Monocytes/100 WBC (Bld)7.2 %[facility] HospitalNeutrophils (Bld) [#/Vol]6.97 10*3/uL1.45 - 7.50 k/uLSelect Medical Trihealth Rehabilitation HospitalNeutrophils/100 WBC (Bld)63.2 %[facility] HospitalNucleated RBC (Bld) [#/Vol]<0.01 k/uLSelect Medical Trihealth Rehabilitation HospitalNucleated RBC/100 WBC (Bld) [Ratio]0.0 /100 WBCSelect Medical Trihealth Rehabilitation HospitalPlatelet mean volume (Bld) [Entitic vol]9.9 fL9.0 - 12.7 fLClevelcarolinas continuecare hospital at pineville ClinicPlatelets (Bld) [#/Vol]314 10*3/uL150 - 400 k/uLSelect Medical Trihealth Rehabilitation HospitalRBC (Bld) [#/Vol]4.58 10*6/uL3.90 - 5.20 m/uLSelect Medical Trihealth Rehabilitation HospitalWBC (Bld) [#/Vol]11.04 10*3/uLHigh3.70 - 11.00 k/uLSelect Medical Trihealth Rehabilitation Hospital ECHOCARDIO M/2D COMPLETEon [id number] M/2D COMPLETEPatient: ARIADNA HALEY Exam Date: 03/12/2022 : 1980 Gender:F Ordering : DR MANUEL FERRIS . Admission #: [id number] Family : Order #: [id number] CLICK HERE TO VIEW EXAM ECHOCARDIOGRAM REPORT [...] by: Calos Arce M.D. on 03/16/2022 at 16:47[facility] Medical CenterINSULINon 85-60-4319Zdnuhig52.8 uIU/mLNormal2.6-24.9The [facility] HospitalComment on above:Performed By: #### CBC #### [facility] [address] [place] [address] Dr. Manda Bruce AUTO DIFFon 68-87-3287SSNE #0.1 103/ulNormal0.0-0.1The [facility] HospitalComment on above:Performed By: #### CBC #### [facility] [address] [place] [address] Dr. Manda Stroudsophils/100 WBC (Bld)0.4 %Normal0.2-2.0The [facility] Comment on above:Performed By: #### CBC #### [facility] [address] [address] [address] Manda Shafer #0.2 103/ulNormal0.0-0.7The [facility] HospitalComment on above: Performed By: #### CBC #### [facility] [address] [place] [address] Dr. Manda Noonanosinophils/100 WBC (Bld)1.2 %Normal0.9-7.0The [facility] Comment on above:Performed By: #### CBC #### [facility] [address] [place] [address] Dr. Manda Noonanrythrocyte distribution width (RBC) [Ratio]14.6 %Djksnt20.0-15.0 The [facility] HospitalComment on above:Performed By: #### CBC #### [facility] [address] [place] [address] Dr. Manda YorkHematocrit (Bld) [Volume fraction]39.2 %Dhbigq53.0-48.0The [facility] HospitalComment on above:Performed By: #### CBC #### [facility] [address] [place] [address] Dr. Manda YorkHemoglobin (Bld) [Mass/Vol]12.7 g/qEBlxben75.0-16.0The [facility] HospitalComment on above:Performed By: #### CBC #### [facility] [address] [place] [address] Dr. Manda Calderon #0.06 10e3/ulCritically high0.00-0.03The [facility] Comment on above:Performed By: #### CBC #### [facility] [address] [place] [address] Dr. Manda Calderon %0.5 %Normal0.0-0.5The [facility] HospitalComment on above: Performed By: #### CBC #### [facility] [address] [place] [address] Dr. Manda BolañosMPH #3.7 103/ulNormal1.2-3.8The [facility] HospitalComment on above:Performed By: #### CBC #### [facility] [address] [place] [address] Dr. Manda Bolañosmphocytes/100 WBC (Bld)31.0 %Hcubsm66.5-60.0The [facility] HospitalComment on above:Performed By: #### CBC #### [facility] [address] [place] [address] Dr. Manda Dela CruzUAL DIFF REQNONormalThe [facility] HospitalComment on above: Performed By: #### CBC #### [facility] [address] [place] [address] Dr. Manda Cardoso (RBC) [Entitic mass]28.9 ukXnitqw57.7-34.0The [facility] HospitalComment on above:Performed By: #### CBC #### [facility] [address] [place] [address] Dr. Manda Cardoso (RBC) [Mass/Vol]32.4 g/oTPhnecu89.9-35.2The [facility] HospitalComment on above:Performed By: #### CBC #### [facility] [address] [place] [address] Dr. Manda Cardoso (RBC) [Entitic vol]89.1 sMAnhoau15.0-99.0The [facility] HospitalComment on above:Performed By: #### CBC #### [facility] [address] [place] [address] Dr. Manda Maciel #0.7 103/ulNormal0.3-0.8The [facility] HospitalComment on above:Performed By: #### CBC #### [facility] [address] [place] [address] Dr. Manda Coteocytes/100 WBC (Bld)5.8 %Normal1.7-12.0[facility] Comment on above:Performed By: #### CBC #### [facility] [address] [place] [address] Dr. Manda Claudio #7.3 103/ulCritically high1.4-6.5The [facility] Comment on above:Performed By: #### CBC #### [facility] [address] [address] [address] Manda Longutrophils/100 WBC (Bld)61.1 %Nsqqxv15.0-75.0The [facility] HospitalComment on above:Performed By: #### CBC #### [facility] [address] [address] [address] Manda Ferreiralet mean volume (Bld) [Entitic vol]9.7 fLNormal9.5-13.5The [facility] HospitalComment on above:Performed By: #### CBC #### [facility] [address] [place] [address] Dr. Manda YorkPLT297 103/bgAwiptn222-453Mwe [facility] HospitalComment on above: Performed By: #### CBC #### [facility] [address] [place] [address] Dr. Manda YorkRBC4.40 106/ulNormal4.20-5.40The [facility] HospitalComment on above:Performed By: #### CBC #### [facility] [address] [place] [address] Dr. Manda YorkWBC12.0 103/ulCritically high4.0-11.0The [facility] HospitalComment on above:Performed By: #### CBC #### [facility] [address] [place] [address] Dr. Manda Hilton THYROXINE INDEX T7on 46-29-8109HJD6.22Tbgvdf7.30-4.50The [facility] HospitalComment on above:Performed By: #### UAMIC #### [facility] [address] [place] [address] Dr. Manda YorkT3U34.0 %Xowrpu65.0-39.0The [facility] HospitalComment on above: Performed By: #### UAMIC #### [facility] [address] [place] [address] Dr. Manda YorkT4 [Mass/Vol]11.20 ug/dLNormal4.80-13.90The [facility] Comment on above:Performed By: #### UAMIC #### [facility] [address] [address] [address] Manda YorkGLYCOHEMOGLOBIN A1Con 26-39-7436INJ RECOMMENDATIONSEE BELOWMemorial Health System Marietta Memorial HospitalComment on above:Result Comment: ADA RECOMMENDED LIMIT 4.0 - 6.0 ADA THERAPEUTIC TARGET < 7.0 ACTION SUGGESTED > 7.0Performed By: #### NURIS THYLC #### [facility] [address] [place] [address] Dr. Manda YorkGlucose [Mass/Vol]117 mg/dLNoSCCI Hospital LimaComment on above:Performed By: #### NURIS THYLC #### [facility] [address] [place] [address] Dr. Manda YorkHbA1c (Bld) [Mass fraction]5.7 %Normal4.5-6.2The [facility] HospitalComment on above:Performed By: #### NURIS THYLC #### [facility] [address] [place] [address] Dr. Manda Garcia 03-95-5534Cgfy [Mass/Vol]61.0 ug/gWWaytnr99.0-170.0The [facility] HospitalComment on above:Performed By: #### CBC #### [facility] [address] [place] [address] Dr. Manda YorkLIPID PROFILEon 22-18-3824XJRH-HDL RATIO NORMSEE BELOWWexner Medical CenterComment on above:Result Comment: 3.3 - 4.4 LOW RISK 4.4 - 7.1 AVERAGE RISK 7.1 - 11.0 MODERATE RISK >11.0 HIGH RISKPerformed By: #### UAMIC #### [facility] [address] [place] [address] Dr. Manda YorkCholesterol [Mass/Vol]260 mg/dLCritically high<=200The [facility] HospitalComment on above:Performed By: #### UAMIC #### [facility] [address] [place] [address] Dr. Yilan ChangCholesterol in HDL [Mass/Vol]38 mg/dLCritically bka61-78KxkNorwalk Memorial Hospital on above:Performed By: #### UAMIC #### [facility] [address] [place] [address] Dr. Manda YorkCholesterol in LDL [Mass/Vol]170.8 mg/dLWexner Medical CenterComhawthorn center on above:Performed By: #### UAMIC #### [facility] [address] [place] [address] Dr. Manda Carroll.total/Cholesterol in HDL [Mass ratio]6.8 {ratio} NormalNorwalk Memorial Hospital on above:Performed By: #### UAMIC #### [facility] [address] [place] [address] Dr. Manda Marte NORMAL> or = 60 mg/dl - LOW CARDIOVASCULAR RISK <40 mg/dl - HIGH CARDIOVASCULAR RISKWexner Medical CenterComment on above:Performed By: #### UAMIC #### [facility] [address] [place] [address] Dr. Manda Zamora CALC NORMALSEE BELOWWexner Medical CenterComhawthorn center on above:Result Comment: <100 mg/dl OPTIMAL 100 - 129 mg/dl NEAR OR ABOVE OPTIMAL 130 - 159 mg/dl BORDERLINE HIGH 160 - 189 mg/dl HIGH >190 mg/dl VERY HIGH Performed By: #### UAMIC #### [facility] [address] [place] [address] Dr. Manda YorkTriglyceride [Mass/Vol]256 mg/dLCritically high<=150[facility] on above:Performed By: #### UAMIC #### [facility] [address] [place] [address] Dr. Manda YorkVLDL CALC51.2 mg/dLWexner Medical CenterComment on above: Performed By: #### UAMIC #### [facility] [address] [place] [address] Dr. Manda YorkPROF 14(COMP METB)on 41-85-7340Ufxkcrm [Mass/Vol]3.8 g/dLNormal 3.4-5.0The [facility] HospitalComment on above:Performed By: #### UAMIC #### [facility] [address] [place] [address] Dr. Manda YorkAlbumin/Globulin [Mass ratio]1.0 {ratio}NormalThe [facility] HospitalComment on above:Performed By: #### UAMIC #### [facility] [address] [address] [address] Manda Toney [Catalytic activity/Vol]66 U/HLjticp19-432Upa [facility] HospitalComment on above:Performed By: #### UAMIC #### [facility] [address] [place] [address] Dr. Manda Person [Catalytic activity/Vol]27 U/QNgxryl94-27Qpj [facility] HospitalComment on above:Performed By: #### UAMIC #### [facility] [address] [place] [address] Dr. Manda Loo gap [Moles/Vol]11.8 mmol/LNormalThe [facility] Comment on above:Performed By: #### UAMIC #### [facility] [address] [place] [address] Dr. Manda YorkAST [Catalytic activity/Vol]9 U/LCritically yfh87-62Ydo [facility] HospitalComment on above:Performed By: #### UAMIC #### [facility] [address] [place] [address] Dr. Manda YorkBilirubin [Mass/Vol]0.2 mg/dLNormal0.2-1.0The [facility] Comment on above:Performed By: #### UAMIC #### [facility] [address] [place] [address] Dr. Manda YorkCalcium [Mass/Vol]9.1 mg/dLNormal8.5-10.1The [facility] Comment on above:Performed By: #### UAMIC #### [facility] [address] [place] [address] Dr. Manda YorkChloride [Moles/Vol]101 mmol/BUbczrx80-631Yqb [facility] Comment on above:Performed By: #### UAMIC #### [facility] [address] [address] [address] Manda YorkCO2 [Moles/Vol]26.1 mmol/YLitfur40.0-32.0The [facility] Comment on above:Performed By: #### UAMIC #### [facility] [address] [address] [address] Manda YorkCreatinine [Mass/Vol]0.80 mg/dLNormal0.55-1.02[facility] HospitalComment on above:Performed By: #### UAMIC #### [facility] [address] [address] [address] Manda NoonanGFR-AF MOSOTHO>60Normal>=60The [facility] HospitalComment on above:Performed By: #### UAMIC #### [facility] [address] [address] [address] Manda NoonanGFR-NON AF MOSOTHO>60Normal>=60The [facility] HospitalComment on above:Performed By: #### UAMIC #### [facility] [address] [address] [address] Manda YorkGlobulin (S) [Mass/Vol]3.8 g/dLNormalThe [facility] HospitalComment on above:Performed By: #### UAMIC #### [facility] [address] [address] [address] Manda YorkGlucose [Mass/Vol]93 mg/sMNivbcy57-015Enb [facility] Comment on above:Performed By: #### UAMIC #### [facility] [address] [address] [address] Manda YorkPotassium [Moles/Vol]3.9 mmol/LNormal3.5-5.1The [facility] Comment on above:Performed By: #### UAMIC #### [facility] [address] [address] [address] Manda YorkProtein [Mass/Vol]7.6 g/dLNormal6.4-8.2The [facility] Comment on above:Performed By: #### UAMIC #### [facility] [address] [address] [address] Manda YorkSodium [Moles/Vol]135 mmol/LCritically fpz733-980Yji [facility] HospitalComment on above:Performed By: #### UAMIC #### [facility] [address] [address] [address] Manda YorkUrea nitrogen [Mass/Vol]10.0 mg/dLNormal7.0-18.0The [facility] HospitalComment on above:Performed By: #### UAMIC #### [facility] [address] [address] [address] Manda YorkUrea nitrogen/Creatinine [Mass ratio]12.5 mg/mgNormalThe [facility] HospitalComment on above:Performed By: #### UAMIC #### [facility] [address] [address] [address] Manda Fowler 24-55-5131AVU3.610 uIU/mLNormal0.358-3.740The [facility] HospitalComment on above:Performed By: #### UAMIC #### [facility] [address] [place] [address] Dr. Manda YorkB2 MICROGLOBULIN [facility] 44-26-1397Gpne-2-Microglobulin [Mass/Vol]1.8 ug/mL0.8 - 2.4 mg/LCleveland ClinicFERRITIN BLDon 38-18-0580Eucbqior [Mass/Vol] 33.2 ng/mL14.7 - 205.1 ng/mLCleveland ClinicFOLATE SERUMon 75-51-7792Mtklbr [Mass/Vol]6.6 ng/mL>4.7 ng/mLCleveland ClinicIron and Iron binding capacity panelon 72-38-6700Mqsg [Mass/Vol]49 ug/dL41 - 186 ug/dLCleveland ClinicIron binding capacity [Mass/Vol]392 ug/xHHnuj722 - 386 ug/dLCleveland ClinicIron/TIBC [Molar ratio]12.5 %Low15.0 - 57.0 %[facility] ClinicCBC W Auto Differential panel (Bld)on [id number] (Bld) [#/Vol]0.07 10*3/uL<0.11 k/uLSelect Medical Trihealth Rehabilitation HospitalBasophils/100 WBC (Bld)0.6 %[facility] HospitalDifferential cell count method Nom (Bld)AutoCleveland ClinicEosinophils (Bld) [#/Vol]0.19 10*3/uL<0.46 k/uL [facility] HospitalEosinophils/100 WBC (Bld)1.7 %[facility] HospitalErythrocyte distribution width (RBC) [Ratio]14.7 %11.5 - 15.0 %[facility] HospitalHematocrit (Bld) [Volume fraction]40.0 %36.0 - 46.0 %[facility] HospitalHemoglobin (Bld) [Mass/Vol]13.0 g/dL11.5 - 15.5 g/dLSelect Medical Trihealth Rehabilitation HospitalImmature granulocytes (Bld) [#/Vol]0.07 10*3/uL<0.10 k/uLSelect Medical Trihealth Rehabilitation HospitalImmature granulocytes/100 WBC (Bld) 0.6 %[facility] HospitalLymphocytes (Bld) [#/Vol]3.31 10*3/uL1.00 - 4.00 k/uL [facility] HospitalLymphocytes/100 WBC (Bld)30.2 %[facility] HospitalH (RBC) [Entitic mass]28.9 pg26.0 - 34.0 pgCleveland Red Lake Indian [facility] Services HospitalHC (RBC) [Mass/Vol]32.5 g/dL30.5 - 36.0 g/dLGlenbeigh HospitalV (RBC) [Entitic vol]88.9 fL80.0 - 100.0 fLCleveland ClinicMonocytes (Bld) [#/Vol]0.70 10*3/uL<0.87 k/uLSelect Medical Trihealth Rehabilitation Hospital Monocytes/100 WBC (Bld)6.4 %[facility] HospitalNeutrophils (Bld) [#/Vol]6.63 10*3/uL1.45 - 7.50 k/uLCleMercy Health St. Joseph [place] HospitalNeutrophils/100 WBC (Bld)60.5 %[facility] HospitalNucleated RBC (Bld) [#/Vol]<0.01 k/uLSelect Medical Trihealth Rehabilitation HospitalNucleated RBC/100 WBC (Bld) [Ratio]0.0 /100 WBCSelect Medical Trihealth Rehabilitation HospitalPlatelet mean volume (Bld) [Entitic vol]9.6 fL9.0 - 12.7 fLCleveland ClinicPlatelets (Bld) [#/Vol]355 10*3/uL150 - 400 k/uLSelect Medical Trihealth Rehabilitation HospitalRBC (Bld) [#/Vol]4.50 10*6/uL3.90 - 5.20 m/uLSelect Medical Trihealth Rehabilitation HospitalWBC (Bld) [#/Vol]10.97 10*3/uL3.70 - 11.00 k/uLSelect Medical Tri[facility] Rehabilitation Hospital Calcium.ionized [Moles/Vol]on [id number].ionized (Bld) [Mass/Vol]1.26 mmol/L1.08 - 1.30 mmol/LCleveland ClinicCalcium.ionized adjusted to pH 7.4 (Bld) [Moles/Vol]1.25 mmol/L1.08 - 1.30 mmol/LCleveland ClinicComprehensive metabolic 2000 panelon [id number] [Mass/Vol]4.3 g/dL3.9 - 4.9 g/dLSelect Medical Trihealth Rehabilitation Hospital ALP [Catalytic activity/Vol]70 U/L34 - 123 U/LCleveland ClinicALT [Catalytic activity/Vol]26 U/L7 - 38 U/LCleveland ClinicAnion gap [Moles/Vol]7 mmol/LLow9 - 18 mmol/LCleveland ClinicAST [Catalytic activity/Vol]12 U/LLow13 - 35 U/L [facility] HospitalBilirubin [Mass/Vol]0.2 mg/dL0.2 - 1.3 mg/dLSelect Medical [facility] Hospital Calcium [Mass/Vol]9.3 mg/dL8.5 - 10.2 mg/dLSelect Medical Trihealth Rehabilitation HospitalChloride [Moles/Vol] 103 mmol/L97 - 105 mmol/LCleveland ClinicCO2 [Moles/Vol]28 mmol/L22 - 30 mmol/L [facility] HospitalCreatinine [Mass/Vol]0.69 mg/dL0.58 - 0.96 mg/dLSelect Medical [facility] Hospital Estimated Glomerular Filtration Ybak822 mL/min/1.73m>=60 mL/min/1.73mCleveland Austin Hospital And ClinicGlucose [Mass/Vol]100 mg/aDWida13 - 99 mg/dLCleMercy Health [address] Joseph [place] HospitalPotassium [Moles/Vol]3.9 mmol/L3.7 - 5.1 mmol/LCleveland ClinicProtein [Mass/Vol]7.0 g/dL 6.3 - 8.0 g/dLClepromedica toledo hospital ClinicSodium [Moles/Vol]138 mmol/L136 - 144 mmol/L [facility] HospitalUrea nitrogen [Mass/Vol]12 mg/dL7 - 21 mg/dLSelect Medical Trihealth Rehabilitation HospitalLD LACTATE DEHYDROon [id number] [Catalytic activity/Vol]135 U/L135 - 214 U/L [facility] HospitalPHOSPHORUS INORGANICon [id number] [Mass/Vol]3.2 mg/dL 2.7 - 4.8 mg/dLSelect Medical Trihealth Rehabilitation HospitalURIC ACID BLOODon [id number] [Mass/Vol]5.2 mg/dL2.5 - 6.6 mg/dLSelect Medical Trihealth Rehabilitation HospitalIMMUNOGLOBULINS IGA/IGM/IGG/IGE QUANTITAon 76-21-6869Ogojznnkgrmcmo A, Qn, Bmste122 mg/vBTwwclt50-399PanChillicothe Hospital Comment on above:Result Comment: Performed at: CBPerformed By: #### LEANN LAWLERC #### [facility] [address] [address] [address] Manda YorkImmunoglobulin E, Total10 IU/mLNormal6-495The [facility] Comment on above:Result Comment: Performed at: BNPerformed By: #### NURIS THYLC #### [facility] [address] [address] [address] Manda YorkImmunoglobulin G, Qn, Hwzxs067 mg/kCAzfghp581-8537SvaChillicothe HospitalComment on above:Result Comment: Performed at: CBPerformed By: #### SLEAl THYLC #### [facility] [address] [address] [address] Manda YorkImmunoglobulin M, Qn, Xaozq302 mg/dLCritically sdpf92-456Oea [facility] HospitalComment on above:Result Comment: Performed at: CBPerformed By: #### NURIS THYLC #### [facility] [address] [place] [address] Dr. Manda YorkANA by IFAon 29-89-6309Rfcbhgclpgi Antibodies, IFANegativeNormal The [facility] HospitalComment on above:Result Comment: Negative <1:80 Borderline 1:80 Positive >1:80 ICAP nomenclature: AC-0 For more information about Hep-2 cell patterns use ANApatterns.org, the official website for the International Consensus on Antinuclear Antibody (CHRISTIAN) Patterns (ICAP).Performed By: #### LEANN LAWLERC #### [facility] [address] [place] [address] Dr. Manda YorkTHYROID ANTIBODIESon 22-53-1547Shqgrkskejouh Antibody<1.0Normal 0.0-0.9The [facility] HospitalComment on above:Result Comment: Thyroglobulin Antibody measured by [employer] MethodologyPerformed By: #### FT4 #### [facility] [address] [place] [address] Dr. Manda YorkThyroid Peroxidase (TPO) Ab<8Ficxwe2-63VgnChillicothe Hospital Comment on above:Performed By: #### FT4 #### [facility] [address] [place] [address] Dr. Manda YorkPROTEIN ELECTROPHERESISon 42-78-5279Sgfkrwe [Mass/Vol]3.2 g/dL Normal2.9-4.4The [facility] HospitalComment on above:Performed By: #### FT4 #### [facility] [address] [place] [address] Dr. Manda YorkAlbumin/Globulin [Mass ratio]1.0 {ratio}Normal0.7-1.7The [facility] HospitalComment on above:Performed By: #### FT4 #### [facility] [address] [place] [address] Dr. Manda YorkSafyuQsbzj-4-Quzzgzbf1.2 g/dLNormal0.0-0.4The [facility] HospitalComment on above:Performed By: #### FT4 #### [facility] [address] [place] [address] Dr. Manda YorkFwwraKxsuw-1-Vfqzlmro8.9 g/dLNormal0.4-1.0The [facility] HospitalComment on above:Performed By: #### FT4 #### [facility] [address] [place] [address] Dr. Manda YorkBeta Globulin1.2 g/dLNormal0.7-1.3The [facility] HospitalComment on above:Performed By: #### FT4 #### [facility] [address] [place] [address] Dr. Manda YorkGamma Globulin0.9 g/dLNormal0.4-1.8The [facility] HospitalComment on above:Performed By: #### FT4 #### [facility] [address] [place] [address] Dr. Manda YorkGlobulin (S) [Mass/Vol]3.2 g/dLNormal2.2-3.9The [facility] Comment on above:Performed By: #### FT4 #### [facility] [address] [place] [address] Dr. Manda YorkM-SpikeNot ObservedNormalNot ObservedChillicothe HospitalComment on above:Performed By: #### FT4 #### [facility] [address] [place] [address] Dr. Manda Mares.NormalThe [facility] HospitalComment on above:Performed By: #### FT4 #### [facility] [address] [place] [address] Dr. Manda Oswald note:CommentNormalThe [facility] HospitalComment on above: Result Comment: Protein electrophoresis scan will follow via computer, mail, or sales floor manager delivery.Performed By: #### FT4 #### [facility] [address] [place] [address] Dr. Manda YorkProtein [Mass/Vol]6.4 g/dLNormal6.0-8.5ThThe [facility] Comment on above:Performed By: #### FT4 #### [facility] [address] [place] [address] Dr. Manda Echavarria PROFILE Aon [id number]-DNA (DS) Ab Qn9 IU/mLNormal0-9Chillicothe HospitalComment on above:Result Comment: Negative <5 Equivocal 5 - 9 Positive >9Performed By: #### SLEA, THYLC #### [facility] [address] [place] [address] Dr. Manda YorkAntichromatin Antibodies<0.3Yemshe7.0-0.9The [facility] Comment on above:Performed By: #### SLEA, THYLC #### [facility] [address] [place] [address] Dr. Manda Sanches Latex Turbid.<10.0Normal<14.0Chillicothe HospitalComment on above:Performed By: #### SLEA, THYLC #### [facility] [address] [place] [address] Dr. Manda Chowdary Antibodies<0.3Odheqk3.0-0.9The [facility] HospitalComment on above:Performed By: #### SLEA, THYLC #### [facility] [address] [place] [address] Dr. Manda Harmon Anti-SS-A<0.7Fdymkm3.0-0.9The [facility] HospitalComment on above:Performed By: #### SLEA, THYLC #### [facility] [address] [place] [address] Dr. Manda Harmon Anti-SS-B<0.0Phefss9.0-0.9The [facility] HospitalComment on above:Performed By: #### SLEA, THYLC #### [facility] [address] [place] [address] Dr. Manda Lloyd Antibodies<0.6Wjdzhr5.0-0.9The [facility] HospitalComment on above:Performed By: #### SLEA, THYLC #### [facility] [address] [place] [address] Dr. Manda YorkANTISTREPTOLYSIN O AB (ASO)on 06-57-9151Patwzfozpkzdjohk O Ab49.6 IU/mLNormal0.0-200.0The [facility] HospitalComment on above:Performed By: #### ASOAB #### [facility] [address] [place] [address] Dr. Manda WhalenROALBUMIN URINEon 93-98-0498Shilhwx, Urine<3.0NormalNot Estab. The [facility] HospitalComment on above:Result Comment: Verified by repeat analysisPerformed By: #### CBC #### [facility] [address] [place] [address] Dr. Manda Armando4, T3U, FTI LABCORPon 53-75-8253Jgwz Thyroxine Index2.6Normal 1.2-4.9The [facility] HospitalComment on above:Performed By: #### LUIGI LAWLER #### [facility] [address] [place] [address] Dr. Manda YorkT3 Ozxrbx66 %Rmfpvg35-27Tpr [facility] HospitalComment on above: Performed By: #### NURIS THYLC #### [facility] [address] [place] [address] Dr. Manda Moses [Mass/Vol]9.9 ug/dLNormal4.5-12.0The [facility] HospitalComment on above:Performed By: #### LEANN LAWLERC #### [facility] [address] [place] [address] Dr. Manda Bruce AUTO DIFFon 15-60-7666FCGQ #0.1 103/ulNormal0.0-0.1The [facility] HospitalComment on above:Performed By: #### UAMIC #### [facility] [address] [place] [address] Dr. Manda YorkBasophils/100 WBC (Bld)0.6 %Normal0.2-2.0The [facility] Comment on above:Performed By: #### UAMIC #### [facility] [address] [place] [address] Dr. Holman ChangEO #0.3 103/ulNormal0.0-0.7The [facility] HospitalComment on above: Performed By: #### UAMIC #### [facility] [address] [place] [address] Dr. Manda Noonanosinophils/100 WBC (Bld)3.4 %Normal0.9-7.0The [facility] Comment on above:Performed By: #### UAMIC #### [facility] [address] [place] [address] Dr. Manda Noonanrythrocyte distribution width (RBC) [Ratio]14.6 %Xseflf79.0-15.0 The [facility] HospitalComment on above:Performed By: #### UAMIC #### [facility] [address] [place] [address] Dr. Manda YorkHematocrit (Bld) [Volume fraction]39.1 %Vbakqx82.0-48.0The [facility] HospitalComment on above:Performed By: #### UAMIC #### [facility] [address] [place] [address] Dr. Manda YorkHemoglobin (Bld) [Mass/Vol]12.4 g/tONenbhj76.0-16.0The [facility] HospitalComment on above:Performed By: #### UAMIC #### [facility] [address] [place] [address] Dr. Manda Calderon #0.03 10e3/ulNormal0.00-0.03The [facility] HospitalComment on above:Performed By: #### UAMIC #### [facility] [address] [place] [address] Dr. Manda Calderon %0.3 %Normal0.0-0.5The [facility] HospitalComment on above: Performed By: #### UAMIC #### [facility] [address] [place] [address] Dr. Manda KasperH #3.6 103/ulNormal1.2-3.8The [facility] HospitalComment on above:Performed By: #### UAMIC #### [facility] [address] [place] [address] Dr. Manda Bolañosmphocytes/100 WBC (Bld)39.9 %Fzhtre28.5-60.0The [facility] HospitalComment on above:Performed By: #### UAMIC #### [facility] [address] [place] [address] Dr. Manda Richards DIFF REQNONormalThe [facility] HospitalComment on above: Performed By: #### UAMIC #### [facility] [address] [place] [address] Dr. Manda Cardoso (RBC) [Entitic mass]28.4 xdVdyflk47.7-34.0The [facility] HospitalComment on above:Performed By: #### UAMIC #### [facility] [address] [place] [address] Dr. Manda Cardoso (RBC) [Mass/Vol]31.7 g/gXXnomvg95.9-35.2The [facility] HospitalComment on above:Performed By: #### UAMIC #### [facility] [address] [place] [address] Dr. Manda Cardoso (RBC) [Entitic vol]89.7 iUHdsfvs08.0-99.0The [facility] HospitalComment on above:Performed By: #### UAMIC #### [facility] [address] [place] [address] Dr. Manda Maciel #0.7 103/ulNormal0.3-0.8The [facility] HospitalComment on above:Performed By: #### UAMIC #### [facility] [address] [place] [address] Dr. Manda Coteocytes/100 WBC (Bld)7.3 %Normal1.7-12.0The [facility] Comment on above:Performed By: #### UAMIC #### [facility] [address] [place] [address] Dr. Manda Claudio #4.4 103/ulNormal1.4-6.5The [facility] HospitalComment on above:Performed By: #### UAMIC #### [facility] [address] [place] [address] Dr. Manda YorkNeutrophils/100 WBC (Bld)48.5 %Ribibv61.0-75.0The Mercy Hospitalment on above:Performed By: #### UAMIC #### [facility] [address] [place] [address] Dr. Manda YorkPlatelet mean volume (Bld) [Entitic vol]10.1 fLNormal9.5-13.5The [facility] HospitalComment on above:Performed By: #### UAMIC #### [facility] [address] [place] [address] Dr. Manda YorkPLT310 103/ycTkagws176-540Oay [facility] on above: Performed By: #### UAMIC #### [facility] [address] [place] [address] Dr. Manda YorkRBC4.36 106/ulNormal4.20-5.40The [facility] HospitalComment on above:Performed By: #### UAMIC #### [facility] [address] [place] [address] Dr. Manda YorkWBC9.0 103/ulNormal4.0-11.0The [facility] on above: Performed By: #### UAMIC #### [facility] [address] [place] [address] Dr. Manda YorkCROwen 80-58-1473CYN [Mass/Vol]mg/LNormal<=1.0The [facility] on above:Performed By: #### UAMIC #### [facility] [address] [place] [address] Dr. Manda YorkCULTKEILA URINEon [id number] URINECulture Observations: LIGHT GROWTH OF MIXED GENITAL AMBER. NO POTENTIAL PATHOGENS SEEN.NormalThe [facility] HospitalComment on above:Performed By: #### CBC #### [facility] [address] [place] [address] Dr. Manda YorkPROF 14(COMP METB)on 20-28-9558Rlbcpjw [Mass/Vol]3.5 g/dLNormal 3.4-5.0The [facility] HospitalComment on above:Performed By: #### UAMIC #### [facility] [address] [place] [address] Dr. Manda YorkAlbumin/Globulin [Mass ratio]1.0 {ratio}NormalThe [facility] HospitalComment on above:Performed By: #### UAMIC #### [facility] [address] [place] [address] Dr. Manda Toney [Catalytic activity/Vol]71 U/GHqbxcc97-414Qcp [facility] HospitalComment on above:Performed By: #### UAMIC #### [facility] [address] [place] [address] Dr. Manda Person [Catalytic activity/Vol]46 U/EThjhrp17-82Xjj [facility] HospitalComment on above:Performed By: #### UAMIC #### [facility] [address] [place] [address] Dr. Manda Loo gap [Moles/Vol]11.6 mmol/LNormalThe [facility] Comment on above:Performed By: #### UAMIC #### [facility] [address] [place] [address] Dr. Manda Pillai [Catalytic activity/Vol]15 U/OStetok79-66Pgh [facility] HospitalComment on above:Performed By: #### UAMIC #### [facility] [address] [place] [address] Dr. Manda YorkBilirubin [Mass/Vol]0.2 mg/dLNormal0.2-1.0The [facility] Comment on above:Performed By: #### UAMIC #### [facility] [address] [place] [address] Dr. Manda YorkCalcium [Mass/Vol]8.7 mg/dLNormal8.5-10.1The [facility] Comment on above:Performed By: #### UAMIC #### [facility] [address] [place] [address] Dr. Manda YorkChloride [Moles/Vol]104 mmol/IQmkryo63-828[facility] Comment on above:Performed By: #### UAMIC #### [facility] [address] [address] [address] Manda YorkCO2 [Moles/Vol]25.1 mmol/WVbzjmy03.0-32.0[facility] Comment on above:Performed By: #### UAMIC #### [facility] [address] [address] [address] Manda YorkCreatinine [Mass/Vol]0.80 mg/dLNormal0.55-1.02[facility] HospitalComment on above:Performed By: #### UAMIC #### [facility] [address] [place] [address] Dr. Manda NoonanGFR-AF MOSOTHO>60Normal>=60The [facility] HospitalComment on above:Performed By: #### UAMIC #### [facility] [address] [address] [address] Manda Sánchez-NON AF MOSOTHO>60Normal>=60[facility] HospitalComment on above:Performed By: #### UAMIC #### [facility] [address] [address] [address] Manda YorkGlobulin (S) [Mass/Vol]3.6 g/dLNormalThe [facility] HospitalComment on above:Performed By: #### UAMIC #### [facility] [address] [address] [address] Manda YorkGlucose [Mass/Vol]92 mg/gDJbfphd96-406WtqChillicothe Hospital Comment on above:Performed By: #### UAMIC #### [facility] [address] [address] [address] Manda YorkPotassium [Moles/Vol]3.7 mmol/LNormal3.5-5.1The [facility] Comment on above:Performed By: #### UAMIC #### [facility] [address] [address] [address] Manda YorkProtein [Mass/Vol]7.1 g/dLNormal6.4-8.2The [facility] Comment on above:Performed By: #### UAMIC #### [facility] [address] [address] [address] Manda Raphaeldium [Moles/Vol]137 mmol/ITlmyvt563-340Ibj [facility] Comment on above:Performed By: #### UAMIC #### [facility] [address] [place] [address] Dr. Manda Kiser nitrogen [Mass/Vol]17.0 mg/dLNormal7.0-18.0The [facility] HospitalComment on above:Performed By: #### UAMIC #### [facility] [address] [place] [address] Dr. Madna Kiser nitrogen/Creatinine [Mass ratio]21.2 mg/mgNoalThThe [facility] HospitalComment on above:Performed By: #### UAMIC #### [facility] [address] [address] [address] Manda Mckeon RATE WESTERGRENon 01-81-8889KSG RATE40 mm/hrCritically high <=20The [facility] HospitalComment on above:Performed By: #### SEDR #### [facility] [address] [place] [address] Dr. Manda Fowler 78-31-1045DBN2.155 uIU/mLNormal0.358-3.740Ch[facility] HospitalComment on above:Performed By: #### UAMIC #### [facility] [address] [place] [address] Dr. Manda Lynch RANDOM W/MICROSCOPICon 59-91-2763URSCZCDTBCRI SEENNormalNONE SEENChillicothe HospitalComment on above:Performed By: #### UAMIC #### [facility] [address] [place] [address] Dr. Manda Clarkirubin Ql (U)NegativeNormalNEGATIVEThe [facility] Comment on above:Performed By: #### UAMIC #### [facility] [address] [place] [address] Dr. Manda YorkCASTNONE SEENNormalNONE SEENThe [facility] HospitalComment on above:Performed By: #### UAMIC #### [facility] [address] [address] [address] Manda Beaverarity (U)CLEARNormalCLEARChillicothe HospitalComment on above: Performed By: #### UAMIC #### [facility] [address] [address] [address] Manda Brownelor (U)LT. YELLOWNormalYELLOWChillicothe HospitalComment on above:Performed By: #### UAMIC #### [facility] [address] [address] [address] Manda YorkCrystals LM Nom (Urine sed)NONE SEENNormalNONE SEENChillicothe HospitalComment on above:Performed By: #### UAMIC #### [facility] [address] [place] [address] Dr. Holman ChangEpithelial cells LM Ql (Urine sed)RARENormalNONE SEEN /RAREChillicothe HospitalComment on above:Performed By: #### UAMIC #### [facility] [address] [place] [address] Dr. Manda YorkGlucose Ql (U)NegativeNormalNEGATIVECleveland Clinic Akron Generalment on above:Performed By: #### UAMIC #### [facility] [address] [place] [address] Dr. Manda YorkHemoglobin Ql (U)NegativeNormalNEGATIVEKettering Health Behavioral [facility] Center on above:Performed By: #### UAMIC #### [facility] [address] [place] [address] Dr. Manda YorkKetones Ql (U)NegativeNormalNEGATIVEChillicothe HospitalComment on above:Performed By: #### UAMIC #### [facility] [address] [place] [address] Dr. Manda YorkLEUKOCYTESNegativeNormalNEGATIVEChillicothe HospitalComhawthorn center on above:Performed By: #### UAMIC #### [facility] [address] [place] [address] Dr. Manda Gomez SEENNormalNONE SEENThe [facility] HospitalComment on above:Performed By: #### UAMIC #### [facility] [address] [place] [address] Dr. Manda Kirkland Ql (U)NegativeNormalNEGATIVEThe [facility] HospitalComment on above:Performed By: #### UAMIC #### [facility] [address] [address] [address] Manda YorkpH (U)6.0 [pH]Normal5-9The [facility] HospitalComment on above: Performed By: #### UAMIC #### [facility] [address] [place] [address] Dr. Manda YorkRBCNONE SEENAbnormal0-2The [facility] HospitalComment on above: Performed By: #### UAMIC #### [facility] [address] [place] [address] Dr. Manda YorkSPEC GRAVITY1.117Wopxtr7.005-<=1.025The [facility] HospitalComment on above:Performed By: #### UAMIC #### [facility] [address] [place] [address] Dr. Manda Lynch PROTEINNegativeNormalNEGATIVE/ TRACEThe [facility] Comment on above:Performed By: #### UAMIC #### [facility] [address] [place] [address] Dr. Manda Thompsonbilbelkisgen Qn (U)0.2 {Carmella'U}/dLNormal0.2 - 1.0The [facility] HospitalComment on above:Performed By: #### UAMIC #### [facility] [address] [address] [address] Manda YorkWBCJAG SEENNormalNONE SEENThe [facility] HospitalComment on above: Performed By: #### UAMIC #### [facility] [address] [place] [address] Dr. Manda YorkURIC ACID SERUMon [id number] [Mass/Vol]4.2 mg/dLNormal 2.6-6.0The [facility] HospitalComment on above:Performed By: #### UAMIC #### [facility] [address] [place] [address] Dr. Manda YorkVITAMIN D 25 OHon [id number] D 25-OH22.4 ng/mLNormalChillicothe HospitalComment on above:Performed By: #### FT4 #### [facility] [address] [place] [address] Dr. Manda Bee D RANGESSEE BELOWWexner Medical CenterComment on above: Result Comment: <20 ng/mL Vit D deficient 20 - <30 ng/mL Vit D insufficient 30 - 100 ng/mL Vit D sufficient >100 ng/mL Potential ToxicityPerformed By: #### FT4 #### [facility] [address] [place] [address] Dr. Manda Gomez FRA. QNT 24 HR URINEon [id number], U,06bmYgwsyakDmvnaq52-967Wmv [facility] HospitalComment on above:Result Comment: No total volume submitted. Unable to calculate 24 hour result.Performed By: #### NURIS THYLC #### [facility] [address] [place] [address] Dr. Manda Oronaphrine, Ur57 ug/LNormalUndMercy Health St. [facility] Comment on above:Performed By: #### NURIS THYLC #### [facility] [address] [place] [address] Dr. Manda Barcenasrmetanephr.,U,82fYoqrjftOdfoen616-482Iwz [facility] Comment on above:Result Comment: No total volume submitted. Unable to calculate 24 hour result.Performed By: #### NURIS THYLC #### [facility] [address] [place] [address] Dr. Manda Barcenasrmetanephrine, Ur116 ug/LNormalUndMercy Health St. [facility] Comment on above:Performed By: #### NURIS THYLC #### [facility] [address] [place] [address] Dr. Yilan ChangMETANEPHRINES PLASMA FREEon [id number], Pl22.1 pg/mL Normal0.0-88.0The [facility] HospitalComment on above:Performed By: #### LEANN LAWLERC #### [facility] [address] [place] [address] Dr. Manda YorkNormetanephrine, Pl50.7 pg/mLNormal0.0-218.9[facility] Comment on above:Performed By: #### NURIS THYLC #### [facility] [address] [place] [address] Dr. Manda YorkCMV PLASMA PCRon [id number] Quant DNA PCR (Plasma)Negative NormalNegativeChillicothe HospitalComment on above:Result Comment: No CMV DNA detected. The quantitative range of this assay is 200 to 1 million IU/mL.Performed By: #### LEANN LAWLERC #### [facility] [address] [place] [address] Dr. Manda Yorklog10 CMV Qn DNA PlUPTCALNoSCCI Hospital LimaComment on above:Result Comment: Unable to calculate result since non-numeric result obtained for component test.Performed By: #### NURIS THYLC #### [facility] [address] [place] [address] Dr. Manda YorkCMV AB IGMon [id number] (CMV) Ab, IgM43.2 AU/mL Critically high0.0-29.9The [facility] HospitalComment on above:Result Comment: Negative <30.0 Equivocal 30.0 - 34.9 Positive >34.9 A positive result is generally indicative of acute infection, reactivation or persistent IgM production.Performed By: #### NURIS THYLC #### [facility] [address] [place] [address] Dr. Manda NavarreteV AB, IGGon [id number] (CMV) Ab, IgG>10.00 Critically high0.00-0.59[facility] on above:Result Comment: Negative <0.60 Equivocal 0.60 - 0.69 Positive >0.69Performed By: #### CMVIGG #### [facility] [address] [place] [address] Dr. Manda Bruce AUTO DIFFon [id number] #0.1 103/ulNormal0.0-0.1The [facility] HospitalComment on above:Performed By: #### CBC #### [facility] [address] [place] [address] Dr. Manda YorkBasophils/100 WBC (Bld)0.6 %Normal0.2-2.0[facility] Comment on above:Performed By: #### CBC #### [facility] [address] [place] [address] Dr. Manda Shafer #0.2 103/ulNormal0.0-0.7The [facility] HospitalComment on above: Performed By: #### CBC #### [facility] [address] [place] [address] Dr. Manda Noonanosinophils/100 WBC (Bld)2.3 %Normal0.9-7.0The [facility] Comment on above:Performed By: #### CBC #### [facility] [address] [place] [address] Dr. Manda Noonanrythrocyte distribution width (RBC) [Ratio]14.2 %Keeaia65.0-15.0 The [facility] HospitalComment on above:Performed By: #### CBC #### [facility] [address] [place] [address] Dr. Manda YorkHematocrit (Bld) [Volume fraction]40.2 %Fbrigq35.0-48.0The [facility] HospitalComment on above:Performed By: #### CBC #### [facility] [address] [place] [address] Dr. Manda YorkHemoglobin (Bld) [Mass/Vol]12.8 g/kSHippgk41.0-16.0The [facility] HospitalComment on above:Performed By: #### CBC #### [facility] [address] [place] [address] Dr. Manda Calderon #0.02 10e3/ulNormal0.00-0.03The [facility] HospitalComment on above:Performed By: #### CBC #### [facility] [address] [place] [address] Dr. Manda Calderon %0.2 %Normal0.0-0.5The [facility] HospitalComment on above: Performed By: #### CBC #### [facility] [address] [place] [address] Dr. Manda Laguna #2.5 103/ulNormal1.2-3.8The [facility] HospitalComment on above:Performed By: #### CBC #### [facility] [address] [place] [address] Dr. Manda Kasperhocytes/100 WBC (Bld)24.9 %Zjiond55.5-60.0The [facility] HospitalComment on above:Performed By: #### CBC #### [facility] [address] [place] [address] Dr. Manda Dela CruzMERCY [facility] DIFF REQNONormalThe [facility] HospitalComment on above: Performed By: #### CBC #### [facility] [address] [place] [address] Dr. Manda Gil (RBC) [Entitic mass]27.9 qnTapzqg24.7-34.0The [facility] HospitalComment on above:Performed By: #### CBC #### [facility] [address] [place] [address] Dr. Manda Cardoso (RBC) [Mass/Vol]31.8 g/nYLaarau50.9-35.2The [facility] HospitalComment on above:Performed By: #### CBC #### [facility] [address] [place] [address] Dr. Manda Cardoso (RBC) [Entitic vol]87.6 uLMjwshq76.0-99.0The [facility] HospitalComment on above:Performed By: #### CBC #### [facility] [address] [place] [address] Dr. Manda Maciel #0.6 103/ulNormal0.3-0.8The [facility] HospitalComment on above:Performed By: #### CBC #### [facility] [address] [place] [address] Dr. Manda Coteocytes/100 WBC (Bld)6.3 %Normal1.7-12.0The [facility] Comment on above:Performed By: #### CBC #### [facility] [address] [place] [address] Dr. Manda Claudio #6.5 103/ulNormal1.4-6.5The [facility] HospitalComment on above:Performed By: #### CBC #### [facility] [address] [place] [address] Dr. Manda Longutrophils/100 WBC (Bld)65.7 %Nmbnub79.0-75.0The [facility] HospitalComment on above:Performed By: #### CBC #### [facility] [address] [place] [address] Dr. Manda Granados mean volume (Bld) [Entitic vol]10.1 fLNormal9.5-13.5The [facility] HospitalComment on above:Performed By: #### CBC #### [facility] [address] [place] [address] Dr. Manda YorkPLT304 103/ulUsyzkq914-720Efa [facility] HospitalComment on above: Performed By: #### CBC #### [facility] [address] [place] [address] Dr. Manda ZeeC4.59 106/ulNormal4.20-5.40The [facility] HospitalComment on above:Performed By: #### CBC #### [facility] [address] [place] [address] Dr. Manda YorkWBC9.9 103/ulNormal4.0-11.0The [facility] HospitalComment on above: Performed By: #### CBC #### [facility] [address] [place] [address] Dr. Manda Macdonald 14(COMP METB)on [id number] [Mass/Vol]3.7 g/dLNormal 3.4-5.0The [facility] HospitalComment on above:Performed By: #### CBC #### [facility] [address] [place] [address] Dr. Manda YorkAlbumin/Globulin [Mass ratio]1.0 {ratio}NormalThe [facility] HospitalComment on above:Performed By: #### CBC #### [facility] [address] [place] [address] Dr. Manda GraffP [Catalytic activity/Vol]65 U/JYjewba81-469Hye [facility] HospitalComment on above:Performed By: #### CBC #### [facility] [address] [place] [address] Dr. Manda Person [Catalytic activity/Vol]35 U/CCyjaed35-63Vsd [facility] HospitalComment on above:Performed By: #### CBC #### [facility] [address] [place] [address] Dr. Manda Loo gap [Moles/Vol]13.0 mmol/LNormalThe [facility] Comment on above:Performed By: #### CBC #### [facility] [address] [place] [address] Dr. Manda YorkAST [Catalytic activity/Vol]12 U/LCritically rmh97-76Npi [facility] HospitalComment on above:Performed By: #### CBC #### [facility] [address] [place] [address] Dr. Manda YorkBilirubin [Mass/Vol]0.2 mg/dLNormal0.2-1.0The [facility] Comment on above:Performed By: #### CBC #### [facility] [address] [place] [address] Dr. Manda YorkCalcium [Mass/Vol]8.7 mg/dLNormal8.5-10.1[facility] Comment on above:Performed By: #### CBC #### [facility] [address] [place] [address] Dr. Manda YorkChloride [Moles/Vol]104 mmol/FWpbskb31-227Wnu [facility] Comment on above:Performed By: #### CBC #### [facility] [address] [address] [address] Manda YorkCO2 [Moles/Vol]24.9 mmol/RHdlkdb09.0-32.0The [facility] Comment on above:Performed By: #### CBC #### [facility] [address] [address] [address] Manda YorkCreatinine [Mass/Vol]0.77 mg/dLNormal0.55-1.02The [facility] HospitalComment on above:Performed By: #### CBC #### [facility] [address] [place] [address] Dr. Manda NoonanGFR-AF MOSOTHO>=60Normal>=60The [facility] HospitalComment on above:Performed By: #### CBC #### [facility] [address] [address] [address] Manda NoonanGFR-NON AF MOSOTHO>=60Normal>=60The [facility] HospitalComment on above:Performed By: #### CBC #### [facility] [address] [address] [address] Manda YorkGlobulin (S) [Mass/Vol]3.8 g/dLNormalThe [facility] HospitalComment on above:Performed By: #### CBC #### [facility] [address] [address] [address] Manda YorkGlucose [Mass/Vol]110 mg/dLCritically rlva32-268Noi [facility] HospitalComment on above:Performed By: #### CBC #### [facility] [address] [address] [address] Manda YorkPotassium [Moles/Vol]3.9 mmol/LNormal3.5-5.1The [facility] Comment on above:Performed By: #### CBC #### [facility] [address] [address] [address] Manda YorkProtein [Mass/Vol]7.5 g/dLNormal6.4-8.2The [facility] Comment on above:Performed By: #### CBC #### [facility] [address] [place] [address] Dr. Manda Raphaeldium [Moles/Vol]138 mmol/VDysewj174-358Ixn [facility] Comment on above:Performed By: #### CBC #### [facility] [address] [place] [address] Dr. Manda Kiser nitrogen [Mass/Vol]17.0 mg/dLNormal7.0-18.0The [facility] HospitalComment on above:Performed By: #### CBC #### [facility] [address] [place] [address] Dr. Manda Kiser nitrogen/Creatinine [Mass ratio]22.1 mg/mgNormalThe [facility] HospitalComment on above:Performed By: #### CBC #### [facility] [address] [place] [address] Dr. Manda Mckeon RATE WESTERGRENon 67-18-1548LZC RATE45 mm/hrCritically high <=20The [facility] HospitalComment on above:Performed By: #### FT4 #### [facility] [address] [place] [address] Dr. Manda Pickard EIA W/REFLEX 5 BIOMARKERSon [id number] DirectPositive AbnormalNegativeThe [facility] HospitalComment on above:Performed By: #### CBC #### [facility] [address] [place] [address] Dr. Manda Meza-DNA (DS) Ab Qn10 IU/mLCritically high0-9The [facility] HospitalComment on above:Result Comment: Negative <5 Equivocal 5 - 9 Positive >9Performed By: #### CBC #### [facility] [address] [place] [address] Dr. Manda Chowdary Antibodies<0.7Xqvmvr4.0-0.9The [facility] HospitalComment on above:Performed By: #### CBC #### [facility] [address] [place] [address] Dr. Manda Lux BELOW:CommentNormThe MetroHealth SystemComment on above: Result Comment: Autoantibody Disease Association [...] Sm (anti-Schneider) SLE 15 - 30% --------- AUT[employer] Mixed Connective Tissue Disease 95% (U1 nRNP, SLE 30 - 50% anti-ribonucleoprotein) Polymyositis and/or Dermatomyositis 20% --------- Scl-70 (antiDNA Scleroderma (diffuse) 20 - 35% topoisomerase) Crest 13% --------- Felicita-1 Polymyositis and/or Dermatomyositis 20 - 40% --------- Centromere B Scleroderma - Crest variant 80%Performed By: #### CBC #### [facility] [address] [place] [address] Dr. Mnada Harmon Anti-SS-A<0.7Yblmzv4.0-0.9[facility] on above:Performed By: #### CBC #### [facility] [address] [place] [address] Dr. Manda Harmon Anti-SS-B<0.0Ksxxxt0.0-0.9[facility] on above:Performed By: #### CBC #### [facility] [address] [place] [address] Dr. Manda Lloyd Antibodies<0.8Pcadyn2.0-0.9[facility] on above:Performed By: #### CBC #### [facility] [address] [place] [address] Dr. Manda NavarreteV PLASMA PCRon [id number] Quant DNA PCR (Plasma)Negative NormalNegativeThe [facility] HospitalComment on above:Result Comment: No CMV DNA detected. The quantitative range of this assay is 200 to 1 million IU/mL.Performed By: #### CMVPL #### [facility] [address] [place] [address] Dr. Manda Yorklog10 CMV Qn DNA PlUPTCALNoWood County Hospitale [facility] HospitalComment on above:Result Comment: Unable to calculate result since non-numeric result obtained for component test.Performed By: #### CMVPL #### [facility] [address] [place] [address] Dr. Manda NavarreteV AB IGMon [id number] (CMV) Ab, IgM35.5 AU/mL Critically high0.0-29.9The [facility] HospitalComment on above:Result Comment: Negative <30.0 Equivocal 30.0 - 34.9 Positive >34.9 A positive result is generally indicative of acute infection, reactivation or persistent IgM production.Performed By: #### NURIS THYLC #### [facility] [address] [place] [address] Dr. Manda Buenrostro AB, IGGon [id number] (CMV) Ab, IgG6.30 U/mL Critically high0.00-0.59The [facility] HospitalComment on above:Result Comment: Negative <0.60 Equivocal 0.60 - 0.69 Positive >0.69Performed By: #### SLEA THYLC #### [facility] [address] [place] [address] Dr. Manda Bruce AUTO DIFFon [id number] #0.1 103/ulNormal0.0-0.1The [facility] HospitalComment on above:Performed By: #### CBC #### [facility] [address] [place] [address] Dr. Manda YorkBasophils/100 WBC (Bld)0.7 %Normal0.2-2.0The [facility] Comment on above:Performed By: #### CBC #### [facility] [address] [place] [address] Dr. Manda Shafer #0.2 103/ulNormal0.0-0.7The [facility] HospitalComment on above: Performed By: #### CBC #### [facility] [address] [place] [address] Dr. Manda Noonanosinophils/100 WBC (Bld)2.0 %Normal0.9-7.0The [facility] Comment on above:Performed By: #### CBC #### [facility] [address] [place] [address] Dr. Manda Noonanrythrocyte distribution width (RBC) [Ratio]14.4 %Auccip20.0-15.0 The [facility] HospitalComment on above:Performed By: #### CBC #### [facility] [address] [place] [address] Dr. Manda YorkHematocrit (Bld) [Volume fraction]37.2 %Aimqoh90.0-48.0The [facility] HospitalComment on above:Performed By: #### CBC #### [facility] [address] [place] [address] Dr. Manda YorkHemoglobin (Bld) [Mass/Vol]12.3 g/fXYgxnvz08.0-16.0The [facility] HospitalComment on above:Performed By: #### CBC #### [facility] [address] [place] [address] Dr. Manda Calderon #0.02 10e3/ulNormal0.00-0.03The [facility] HospitalComment on above:Performed By: #### CBC #### [facility] [address] [place] [address] Dr. Manda Calderon %0.2 %Normal0.0-0.5The [facility] HospitalComment on above: Performed By: #### CBC #### [facility] [address] [place] [address] Dr. Manda Laguna #2.1 103/ulNormal1.2-3.8The [facility] HospitalComment on above:Performed By: #### CBC #### [facility] [address] [place] [address] Dr. Manda Bolañosmphocytes/100 WBC (Bld)26.4 %Hzimie02.5-60.0The [facility] HospitalComment on above:Performed By: #### CBC #### [facility] [address] [place] [address] Dr. Manda Richards DIFF REQNONormalThe [facility] HospitalComment on above: Performed By: #### CBC #### [facility] [address] [place] [address] Dr. Manda Cardoso (RBC) [Entitic mass]29.2 xgHfgdor08.7-34.0The [facility] HospitalComment on above:Performed By: #### CBC #### [facility] [address] [place] [address] Dr. Manda Cardoso (RBC) [Mass/Vol]33.1 g/hKTcejov23.9-35.2The [facility] HospitalComment on above:Performed By: #### CBC #### [facility] [address] [place] [address] Dr. Manda Bradshaw (RBC) [Entitic vol]88.4 yZCfnyls98.0-99.0The [facility] HospitalComment on above:Performed By: #### CBC #### [facility] [address] [place] [address] Dr. Manda Maciel #0.5 103/ulNormal0.3-0.8The [facility] HospitalComment on above:Performed By: #### CBC #### [facility] [address] [place] [address] Dr. Manda Coteocytes/100 WBC (Bld)6.7 %Normal1.7-12.0The [facility] Comment on above:Performed By: #### CBC #### [facility] [address] [place] [address] Dr. Manda Caludio #5.2 103/ulNormal1.4-6.5The [facility] HospitalComment on above:Performed By: #### CBC #### [facility] [address] [place] [address] Dr. Manda Longutrophils/100 WBC (Bld)64.0 %Exsiht91.0-75.0The [facility] HospitalComment on above:Performed By: #### CBC #### [facility] [address] [place] [address] Dr. Manda Ferreiralet mean volume (Bld) [Entitic vol]10.5 fLNormal9.5-13.5The [facility] HospitalComment on above:Performed By: #### CBC #### [facility] [address] [place] [address] Dr. Manda YorkPLT265 103/wvOtoxny992-151Usb [facility] HospitalComment on above: Performed By: #### CBC #### [facility] [address] [place] [address] Dr. Manda YorkRBC4.21 106/ulNormal4.20-5.40The [facility] HospitalComment on above:Performed By: #### CBC #### [facility] [address] [place] [address] Dr. Manda YorkWBC8.1 103/ulNormal4.0-11.0The [facility] HospitalComment on above: Performed By: #### CBC #### [facility] [address] [place] [address] Dr. Manda Lopez 33-22-6616BSU [Mass/Vol]mg/LNormal<=1.0The [facility] HospitalComment on above:Performed By: #### FT4 #### [facility] [address] [place] [address] Dr. Manda Mckeon RATE MARTINS FERRYERGRENon 53-30-8123CRJ RATE34 mm/hrCritically high <=20The [facility] HospitalComment on above:Performed By: #### CBC #### [facility] [address] [place] [address] Dr. Manda Santana (POC)Ordered By: Jonas Black on 98-68-0813Ocufvcmc [Moles/Vol]106 mmol/L98 - 107 mmol/LMercy Health Work Phone: catheterization and angiography procedure details panelOrdered By: Jonas Black on 30-65-7741Hklgrfs Diagnostic Report Demographics Patient TERA Torres Date of Study 10/07/2020 Name Dateof 1980 Gender Female Age 40 year(s) Race Room [id number]^LEYDI^JONAS Height: 67 inch, 170.18 cm Number Corporate [id number] Weight: 234 pounds, 106.1 kg ID # Patient [id number] BSA: 2.16 m^2 BMI: 36.65 kg/m^2 Acct # MR # [id number] Performing Jonas Black Physician [id number] Referring # [...] Right coronary angiography. Contrast Material: - Isovue 02770 ml Fluoroscopy Time: Diagnostic: 2:12 minutes. Total: [...] assessed as CCS II according to the [place] clinical classification. Hemodynamics Condition: Baseline Room Air [...] --------+---------+---------+---------+ +---------+ + !Aortic (more content not included)...MONTAJ Work Phone: edi, [facility] Incoming Cardio Results From [facility]/Ge - 10/07/2020 10:37 AM EDT Cardiac Diagnostic Report Demographics Patient TERA Torres Date of Study 10/07/2020 Name Date of 1980 Gender Female Age 40 year(s) Race Room [id number]^LEYDI^JONAS Height: 67 inch, 170.18 cm Number Corporate [id number] Weight: 234 pounds, 106.1 kg ID # Patient [id number] BSA: 2.16 m^2 BMI: 36.65 kg/m^2 Acct # MR # [id number] Performing Jonas Black Physician Referring # Physician [...] Right coronary angiography. Contrast Material: - Isovue 84197 ml Fluoroscopy Time: Diagnostic: 2:12 minutes. Total: [...] assessed as CCS II according to the [place] clinical classification. Hemodynamics Condition: Baseline Room Air [...] +---------+---------+---------+ +---------+ + Shunts Oxygen Values O2 Yhljrqbl960.4O2 Amwttbqkadi146.52 [place] [employer] Phone: [facility] Phone: [facility] Phone: creatinine W/GFR Point of CareOrdered By: Jonas Black on 59-57-5725Xyjsbjueqn [Mass/Vol]0.64 mg/dL0.51 - 1.19 mg/dLShanghai eChinaChem, Inc. Phone: GFR Non->60>60 mL/minScci Hospital LimaTxtFeedback Phone: GFR/1.73 sq M.predicted MDRD (S/P/Bld) [Vol rate/Area] mL/min/{1.73_m2}>60 mL/minScci Hospital LimaTxtFeedback Phone: GFR/1.73 sq M.predicted MDRD (S/P/Bld) [Vol rate/Area] [employer] Phone: comment on above:Average GFR for 40-49 years old: 99 mL/min/1.73sq m Chronic Kidney Disease: <60 mL/min/1.73sq m Kidney failure: <15 mL/min/1.73sq m eGFR calculated using average adult body mass. Additional eGFR calculator available at: http://www.[employer]/multiple_crcl_2012.htm Hemoglobin and hematocrit, bloodOrdered By: Jonas Black on 16-42-5569Whogvkwgpb (Bld) [Volume fraction]41 %36 - 46 %[employer] Phone: Hemoglobin (Bld) [Mass/Vol]14.0 g/dL12.0 - 16.0 g/dL [employer] Phone: No Panel InformationOrdered By: Jonas Black on 42-27-1741[facility] Work Phone: pOCT GlucoseOrdered By: Jonas Black on 10-07-2020 Glucose [Mass/Vol]98 mg/dL74 - 100 mg/dLShanghai eChinaChem, Inc. Phone: pOCT urine pregnancyOrdered By: Jonas Black on 81-84-5503Gefl HCG ( test) Ql (U)NegativeNEGATIVEScci Hospital LimaTxtFeedback Phone: comment on above:Specimens with hCG levels near the threshold of the test (25 mIU/mL) may give a negative or indeterminate result. In such cases, another test should be performed with a new specimen in 48-72 hours. If early is suspected clinically in this setting, correlation with quantitative serum b-hCG level is suggested. [facility] Work Phone: pOTASSIUM (POC)Ordered By: Jonas Black on 10-07-2020 Potassium [Moles/Vol]3.8 mmol/L3.5 - 4.5 mmol/LMercy Health Work Phone: platelet Counton 15-59-0952Uexlmvwhv (Bld) [#/Vol]299 10*3/qECnfoxf829-649ZkicnPremier Health Miami Valley Hospital SouthComment on above:Performed By: #### PLT #### [employer] [address] [place] [address] Athletic Events Scorer: Rick Serrano MDPlatelet countOrdered By: Jonas Black on 89-94-5060Npyughptw (Bld) [#/Vol]299 10*3/uLMercy e[employer] Work Phone: [employer] Work Phone: sODIUM (POC)Ordered By: Jonas Black on 10-07-2020 Sodium [Moles/Vol]141 mmol/L138 - 146 mmol/LMercy [employer] Work Phone: coding Summary.on 08-97-8408Uwbluo Summary.CODING DATE: 01/12/2019 FINAL [facility] [...] By: Luz Judd Date Saved: 01/12/2019 10:25 [facility]. CODING DATE: 01/12/2019 FINAL [facility] DS[facility] STATUS: Home (Routine DC) PAYOR: [...] Luz Judd Revised Date Saved: 01/12/2019 10:25 [facility] HospitalXR Chest 2 Viewson [id number] Chest 2 ViewsExam Date/Time: 01/11/2019 18:05 EDT [...] Micheal Valenzuela M.D. Transcribed by: BILL Technologist: DAYANARASumma Health Akron CampusAuto Diffon 62-84-1224Szqlhezgx/100 WBC (Bld)0.8 %Normal0.0-2.0[facility] Comment on above:Order Comment: Order Added by Discern Expert.Performed By: #### [id number], 3228673, 5936768, 4297996, 94852329, 6104457, 5606696, 6981370, 2328546, 15230435, 7428032 #### [facility] [address], [place] [address]Naixdmkqr/Leukocytes Auto (Bld) [Pure # fraction]0.1 E9/LNormal 0.0-0.2[facility] Luke InstituteComment on above:Order Comment: Order Added by Discern Expert.Performed By: #### 90139983, 6125805, 9967951, 2171125, 83454225, 5192991, 6810212, 8222616, 0577111, 85270883, 7333491 #### [facility] [address], [place] [address]Tnteportfkl/100 WBC (Bld)1.9 %Normal0.0-8.0[facility] HospitalComment on above:Order Comment: Order Added by Discern Expert.Performed By: #### 92628715, 2467351, 0744584, 1922198, 50700674, 8706839, 5972523, 4693763, 2937330, 96728418, 8516707 #### [facility] [address], [place] [address]Ajlhhckhgtn/Leukocytes Auto (Bld) [Pure # fraction]0.1 E9/L Normal0.0-0.5FChillicothe HospitalComment on above:Order Comment: Order Added by Discern Expert.Performed By: #### 50612473, 8819234, 1451933, 1629880, 92500315, 9061458, 9000077, 3604290, 5619281, 53219661, 2329219 #### [facility] [address], [place] [address]Cyistbcsypm/100 WBC (Bld)28.0 %Ukhpju32.0-50.0[facility] HospitalComment on above:Order Comment: Order Added by Discern Expert. Performed By: #### 26436487, 8140049, 8191513, 9898637, 49515794, 8094860, 0222520, 6313267, 7809273, 99691752, 5317702 #### [facility] [address], [place] [address]Yrneueicnxj/Leukocytes Auto (Bld) [Pure # fraction]2.2 E9/L Normal1.0-4.0[facility] HospitalComment on above:Order Comment: Order Added by Discern Expert.Performed By: #### 50713243, 1851228, 8085367, 2771504, 60044938, 2656147, 6512595, 8210877, 6911063, 10388539, 6370586 #### [facility] [address] [place] [address]Xbllvwugl/100 WBC (Bld)7.0 %Normal4.0-14.0[facility] HospitalComment on above:Order Comment: Order Added by Discern Expert.Performed By: #### 33996979, 3409271, 7901289, 6697646, 95366254, 4396898, 1169254, 8162133, 5568183, 22329543, 9721730 #### [facility] [address] [place] [address]Ncguiwazf/Leukocytes Auto (Bld) [Pure # fraction]0.6 E9/LNormal 0.2-1.0[facility] HospitalComment on above:Order Comment: Order Added by Discern Expert.Performed By: #### 53914970, 8573091, 7222167, 4830489, 06414000, 9230051, 3884732, 8338773, 4416838, 57310594, 3816524 #### [facility] [address], [place] [address]Kxjacicytql/100 WBC (Bld)62.3 %Fftowj54.0-75.0[facility] HospitalComment on above:Order Comment: Order Added by Discern Expert. Performed By: #### 15064203, 8820930, 6535951, 9268584, 02447114, 4149368, 7387872, 4056864, 9965296, 00409466, 7397316 #### [facility] [address], [place] [address]Sfwbizelomb/Leukocytes Auto (Bld) [Pure # fraction]4.9 E9/L Normal2.0-7.5FChillicothe HospitalComment on above:Order Comment: Order Added by Discern Expert.Performed By: #### 61226251, 6340246, 3077069, 1220565, 72634229, 2121135, 4556480, 0785583, 4143946, 05291014, 9636604 #### [facility] [address] [place] [address]EZXie 51-12-5692Szblykueje [Mass/Vol]0.7 mg/dLNormal0.5-1.3 [facility] HospitalComment on above:Performed By: #### 04086987, 0054549, 2393281, 6464304, 04488549, 2632377, 6996027, 6305899, 3262336, 75274298, 5457565 #### [facility] [address], [place] [address]Jlut nitrogen [Mass/Vol]11 mg/dLNormal5-21[facility] HospitalComment on above:Performed By: #### 67468810, 0830040, 4605178, 1972817, 91961321, 7450146, 2849492, 0697670, 9754600, 18614416, 5135782 #### [facility] [address], [place] [address]Snro nitrogen/Creatinine [Mass ratio]16 No NdiglTpjawe64-00 [facility] HospitalComment on above:Performed By: #### 29205760, 9454405, 2877315, 9765682, 22512841, 7435706, 1726337, 2027983, 1183927, 84630281, 5012557 #### [facility] [address], [place] [address]Hrdij gap [Moles/Vol]14 mmol/LNormal6-16[facility] HospitalComment on above:Performed By: #### 74469008, 0352069, 4850920, 1305235, 86702112, 6212962, 3060429, 8404679, 3414076, 16874788, 7046767 #### [facility] [address], [place] [address]Jwufkop [Mass/Vol]8.9 mg/dLNormal8.9-11.1FChillicothe HospitalComment on above:Performed By: #### 30588527, 4925146, 6502154, 8990630, 18913899, 3740206, 1559407, 8200449, 3821755, 00561198, 7168549 #### [facility] [address], [place] [address]Oyptfvob [Moles/Vol]107 mmol/DKyihwx577-404NfmmilKeenan Private HospitalComment on above:Performed By: #### 53169107, 2713740, 0806801, 1957621, 87607745, 0735184, 3154349, 0666381, 4704749, 89521165, 0705783 #### [facility] [address], [place] [address]JA0 [Moles/Vol]22 mmol/HLzkfok22-28AkivtwKeenan Private Hospital Comment on above:Performed By: #### 46675922, 4652221, 8235449, 9592998, 76854666, 3592823, 2173707, 2095522, 2911642, 18683114, 2553188 #### [facility] [address], [place] [address]Ymzlkbr [Mass/Vol]122 mg/nEUlqnji29-015CfnrrpKeenan Private HospitalComment on above:Result Comment: If this glucose result represents a fasting glucose, interpretation should refer tothe following reference range: 55-99 mg/dLPerformed By: #### 81405198, 1389166, 9587271, 9881914, 96589486, 5222367, 3948373, 0068799, 8001460, 80621810, 2794720 #### [facility] [address], [place] [address]Mdwnakfhz [Moles/Vol]3.8 mmol/LNormal3.5-5.3FChillicothe HospitalComment on above:Performed By: #### 66724885, 0870610, 0546048, 2479870, 40538511, 1923808, 4834765, 4697486, 9530467, 91190212, 8263776 #### [facility] [address], [place] [address]Puxupq [Moles/Vol]139 mmol/ZNysehv344-757XgpgybUPMC Western MarylandComment on above:Performed By: #### 33069762, 0528954, 4050938, 3241629, 03268151, 5180765, 9229431, 7016357, 9582308, 41172514, 2529125 #### [facility] [address], [place] [address]HKH w/ Auto Diffon 50-02-4707Ydvtfaahzmv distribution width (RBC) [Ratio]14.0 %Bkmbwq87.9-14.2FChillicothe HospitalComment on above: Performed By: #### 12857734, 5593651, 5997501, 9809955, 61492518, 6915661, 0297038, 6942612, 9784462, 70119987, 8273199 #### [facility] [address], [place] [address]Dnrdgxcqce (Bld) [Volume fraction]39.9 %Glyspd41.0-46.0[facility] HospitalComment on above:Performed By: #### 10040239, 8243089, 4101355, 3800323, 03627811, 9542828, 2466750, 9518721, 0929294, 96679975, 6734955 #### [facility] [address], [place] [address]Jbhkihdnlk (Bld) [Mass/Vol]13.5 g/hCKlhwyi68.0-16.0[facility] HospitalComment on above:Performed By: #### 19806242, 6444770, 6585441, 9887074, 73643709, 6607243, 3664736, 6892580, 6168188, 99930414, 5366454 #### [facility] [address], [place] [address]MYV (RBC) [Entitic mass]29.4 daWdfmht94.0-34.0[facility] HospitalComment on above:Performed By: #### 12441230, 8885433, 2027810, 0364669, 56128448, 7998932, 0719605, 4720345, 5928396, 33751803, 1552488 #### [facility] [address], [place] [address]VLBT (RBC) [Mass/Vol]33.7 g/tBKwxljm49.3-35.7FChillicothe HospitalComment on above:Performed By: #### 62617040, 5526722, 7570216, 2668133, 14685077, 9831537, 9076799, 1627736, 6666697, 53494557, 9381213 #### [facility] [address], [place] [address]HMN (RBC) [Entitic vol]87.4 pIFhjrsv29.0-100.0[facility] HospitalComment on above:Performed By: #### 80578550, 3719564, 8637467, 5102783, 69745337, 0760834, 5360567, 9712178, 7462863, 94274901, 8233235 #### [facility] [address], [place] [address]Edjgmqjq mean volume (Bld) [Entitic vol]8.5 fLNormal6.4-10.8 [facility] HospitalComment on above:Performed By: #### 93903449, 3119616, 9582367, 8114192, 11119399, 4592151, 5025117, 8039441, 0360283, 71867170, 3203169 #### [facility] [address], [place] [address]Rzyjxdvzy (Bld) [#/Vol]244.0 E9/ZKnxyvn902.0-500.0[facility] HospitalComment on above:Performed By: #### 40965874, 6121969, 9467432, 0979723, 22073457, 7946984, 7593084, 1636117, 3864643, 69004031, 2972047 #### [facility] [address], [place] [address]BLD (Bld) [#/Vol]4.6 E12/LNormal4.3-5.9[facility] HospitalComment on above:Performed By: #### 46272008, 4316409, 2417986, 0876896, 03450083, 2285682, 4823598, 7168999, 7814576, 48222158, 4573986 #### [facility] [address], [place] [address]VUC corrected for nucl RBC Auto (Bld) [#/Vol]7.9 E9/LNormal 4.0-11.0[facility] HospitalComment on above:Performed By: #### 39028845, 7829741, 0471898, 0798525, 95999541, 0261004, 6581243, 9566763, 8345725, 57348739, 2452542 #### [facility] [address], [place] [address]B-Uyevbvw 69-62-0993Zhoasv D-dimer FEU (PPP) [Mass/Vol]265 ng/fCVfezpg261-618OzoxrfKeenan Private HospitalComment on above:Result Comment: This D-Dimer assay [...] skin infections Liver cirrhosis PregnancyPerformed By: #### 55450220, 5042910, 6038048, 1332221, 85210860, 5256399, 2740143, 0481572, 3888560, 79362534, 1378624 #### [facility] [address] [place] [address]WZ Clinical Summaryon 85-41-5043GW Clinical Summary [address] [address] ED Clinical Summary Person Information Name: ARIADNA HALEY Roger/[facility]ruce Age: 38 Years : 1980 12:00 AM Sex: Female Language: Turkmen PCP: Charles Nicole DO Marital Status: Single Phone: [phone] Visit Id: Visit Reason: Chest pain; CHEST [...] 01/11/2019 6:42 PM 01/11/2019 6:42 PM ADDRESS: [address] [place] [id number] [facility] DOC NOTES: MEDICAL INFORMATION: Prescriptions Given: PATIENT EDUCATION INFORMATION: Instructions: Smoking Cessation; Chest Pain (Nonspecific) Follow up: With: Address: When: [address] [address] Business (1) Within 2 to 3 days Comments: Return to ED if symptoms worsen DIAGNOSIS: 1:Chest painNormalFisher Atul Medical CenterED Note-Physicianon 74-35-2662LB Note-PhysicianBasic Information Time Seen: Orin Browne DO [...] prescription medications Follow-up With When Contact Information [place] Within 2 to [address] [place], [place] [id number] [facility] (1) Additional Instructions: Return to ED [...] Lymph Auto: 28 % (01/11/19 16:46:00 EDT) Mcnairy Auto: 7 % (01/11/19 16:46:00 EDT) Eos Auto: 1.9 % (01/11/19 16:46:00 EDT) Basophil Auto: 0.8 % (01/11/19 16:46:00 EDT) Neutro Absolute: 4.9 E9/L (01/11/19 16:46:00 EDT) Lymph Absolute: 2.2 E9/L (01/11/19 16:46:00 EDT) Mcnairy Absolute: 0.6 E9/L (01/11/19 16:46:00 EDT) Eos [...] ECG Signed By: Orin Browne DO 01/11/2019 15:54:18[facility] Comment on above:Result Comment: Electronically Signed By: Orin Browne DO\.br\Date and Time Signed: 01/11/19 18:36 EDTED Patient Education Noteon 79-59-7531UX Patient Education NoteFamily Medicine Smoking Cessation Quitting [...] and skin patches. Some may be available zirp-zjh-kalqtcl and others require a prescription. ? Antidepressant [...] Document Reviewed: 08/18/2012 ExitCare? Patient Information ?2014 [employer]. This information is not intended to replace [...] Document Reviewed: 12/13/2008 ExitCare? Patient Information ?2015 [employer]. This information is not intended to replace advice given to you by your health care provider. Make sure you discuss any questions you have with yourhealth care provider.[facility] Patient Summaryon 81-14-1011NF Patient Summary [address] [address] Patient Discharge Instructions Person Information Name: ARIADNA HALEY Age: 38 Years Arrival Date: 01/11/2019 3:44 PM Discharge Diagnosis: 1:Chest pain Primary Care Physician: Charles Nicole DO Provider Information Primary Provider: Orin Browne DO Advanced Franchise Sales Manager:None The exam and treatment you received in the Emergency Department were for an urgent problem and are not intended as complete care. It is important that you follow up with a doctor, nurse practitioner,or physician?s video library assistant for ongoing care. If your symptoms [...] Follow-up Instructions: With: Address: When: Charles Nicole [address] [place] [address] Business (1) Within 2 to 3 days [...] opioids can be used to help relieve orwcqont-mc-mgqquj pain and are often prescribed following a [...] your community drug take- back program or [employer] Electronic mail-back program, or flush them down the toilet, following guidance from the Food and Drug Administration (www.fda.gov/Drugs/ResourcesForYou). ? Visit www.cdc.gov/drugoverdose to learn about the risks of opioids abuse and overdose. ? If you believe you may be struggling with addiction, tell your health director career services and ask for guidance or call [facility]?S National Helpline at 3-053-605-NUEV. a Source: US Department of Health and Human Services/Center for Disease Control & Prevention [facility] Medications Given: Medication Dose Route No medications found. Medication Information: Medications to Continue with No Changes Other Medications metformin (metformin 500 mg ER Tab) 250 Milligram By Mouth 2 times a day. Comment: Pharmacy Information: Thank you for choosing [facility] Patient Education Materials: Smoking Cessation Quitting [...] and skin patches. Some may be available lsga-qre-gzgfxbl and others require a prescription. ? Antidepressant [...] Document Reviewed: 08/18/2012 ExitCare? Patient Information ?2014 [employer]. This information is not intended to replace [...] Document Reviewed: 12/13/2008 ExitCare? Patient Information ?2014 [employer]. This information is not intended to replace advice given to you by your health care provider. Make sure you discuss any questions you have with yourhealth care provider. TERA Dorantes NICOLE B , have received the following patient education materials/instructions and have verbalized understanding: Patient Education Materials: Smoking Cessation; Chest Pain (Nonspecific) Follow-up Instructions: With: Address: When: [place] [address] Business (1) Within 2 to 3 days Comments: Return to ED if symptoms worsen Prescriptions: Patient Signature Date Clinician/Nurse Signature Date 01/11/19 18:42:28NormalKeenan Private HospitalProgress Note-Nurseon 34-14-1071Oxxiianq Note-NursePt explained discharge instructions and voiced understanding. Pt sts she will follow up with her PCP and denies any furthe questions at this time.NormalKeenan Private HospitalTroponin 0 Hr.on 93-45-5186Itlszmtn I.cardiac [Mass/Vol]ng/mLNormal<=0.03[facility] HospitalComment on above:Result Comment: New Troponin Assay 10/05/13 [place] Cutoff value > or = 0.03 ng/mL in conjunction with clinical conditions of myocardial infarction. (www.escardio.org/guidelines)Performed By: #### 75540301, 6936219, 7642425, 8095032, 09005871, 9543726, 1252857, 7175552, 4727611, 65751630, 1962760 #### [facility] [address], [place] [address]tOEQbo 96-00-1791HFZ/1.73 sq M predicted among blacks MDRD (S/P/Bld) [Vol rate/Area]mL/min/{1.73_m2}Normal>=59[facility] Comment on above:Order Comment: Order added by Discern Expert.Result Comment: eGFR is race adjusted. AA=.Performed By: #### 86551058, 9415794, 7261670, 2042022, 76052673, 4152192, 5412076, 0688743, 2495154, 81087201, 8956741 #### [facility] [address], [place] [address]ZFA/1.73 sq M predicted among non-blacks MDRD (S/P/Bld) [Vol rate/Area]mL/min/{1.73_m2}Normal>=59[facility] Private HospitalComment on above: Order Comment: Order added by Discern Expert.Result Comment: Chronic kidney disease could be indicated at eGFR's of less than 60 mL/min/1.73m2. Kidney failure is indicated at less than 15 mL/min/1.73m2.Performed By: #### 54644922, 2238713, 7267101, 4488327, 62201960, 0476451, 5369331, 6694740, 8100567, 11669707, 4941815 #### [facility] [address], [place] [address]HLOCS, LUMBOSACRAL CMPLT(BENDING)on 95-40-8113WBTTO, LUMBOSACRAL CMPLT(BENDING) Patient Name: ARIADNA HALEY STUDY: SPINE, LUMBOSACRAL; CMPLT(BENDING); 12/05/2018 1:47 pm INDICATION: LUMBAR XR. COMPARISON: None. ACCESSION NUMBER(S): [id number] ORDERING CLINICIAN: KADE EARLY FINDINGS: No lumbar spine fracture. Scattered small endplate osteophytes. Vertebral body and disc space heights are are maintained. 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 No spondylolisthesis. No instability on flexion or extension. IMPRESSION: Degenerative changes of the lumbar spine without instability. Electronically signed by: EARNESTINE MANUEL MDGuthrie Troy Community Hospital Coding Summary.on 55-74-0191Pzkzst Summary.CODING DATE: 09/15/2018 FINAL [facility] [...] By: Luz Judd Date Saved: 09/15/2018 07:15 amNormalKeenan Private HospitalAuto Diffon 27-19-6955Viwnlxxky/100 WBC (Bld)0.6 %Normal0.0-2.0[facility] Comment on above:Order Comment: Order Added by Discern Expert.Performed By: #### 10134942, 1933214, 8056514, 8263055, 56152641, 3473407, 8318645, 1768101, 7357939, 79325269, 7639728 #### [facility] [address], [place] [address]Rxqfxgeph/Leukocytes Auto (Bld) [Pure # fraction]0.1 E9/LNormal 0.0-0.2FChillicothe HospitalComment on above:Order Comment: Order Added by Discern Expert.Performed By: #### 63457895, 3596757, 8474485, 5349401, 13443437, 5728680, 5298939, 7615804, 2332499, 39760836, 3578672 #### [facility] [address], [place] [address]Vjqevcbphly/100 WBC (Bld)2.2 %Normal0.0-8.0[facility] HospitalComment on above:Order Comment: Order Added by Discern Expert.Performed By: #### 06898794, 6911068, 8022886, 9683296, 29936089, 4138686, 2872806, 6837564, 1632185, 76951998, 0587969 #### [facility] [address], [place] [address]Rtfzmbtjgin/Leukocytes Auto (Bld) [Pure # fraction]0.2 E9/L Normal0.0-0.5FChillicothe HospitalComment on above:Order Comment: Order Added by Discern Expert.Performed By: #### 00726253, 6667143, 4158824, 4368001, 91793121, 5435496, 3070581, 6247180, 2317921, 20287912, 1323767 #### [facility] [address], [place] [address]Jmseonmchni/100 WBC (Bld)30.6 %Sxfyvb46.0-50.0[facility] HospitalComment on above:Order Comment: Order Added by Discern Expert. Performed By: #### 54897985, 5051677, 6054540, 3206323, 19206510, 7510220, 6062600, 9443745, 6909661, 64680705, 6209680 #### [facility] [address], [place] [address]Nzzpzfszzss/Leukocytes Auto (Bld) [Pure # fraction]3.0 E9/L Normal1.0-4.0[facility] HospitalComment on above:Order Comment: Order Added by Discern Expert.Performed By: #### 45630254, 3756267, 5296922, 0805994, 27290627, 4832284, 7140274, 3074889, 2631245, 58503678, 3120881 #### [facility] [address], [place] [address]Yxtspacer/100 WBC (Bld)7.2 %Normal4.0-14.0[facility] HospitalComment on above:Order Comment: Order Added by Discern Expert.Performed By: #### 83934254, 8858652, 3432001, 8750546, 60445408, 9006865, 8042599, 9603068, 7225814, 35146924, 6208155 #### [facility] [address], [place] [address]Odkjixddv/Leukocytes Auto (Bld) [Pure # fraction]0.7 E9/LNormal 0.2-1.0[facility] HospitalComment on above:Order Comment: Order Added by Discern Expert.Performed By: #### 33700106, 3284849, 6290281, 9640518, 04837349, 5175850, 4852311, 4731851, 8555977, 50636864, 0522455 #### [facility] [address] [place], [place] [address]Jabmhipsqzj/100 WBC (Bld)59.4 %Dxulye99.0-75.0[facility] HospitalComment on above:Order Comment: Order Added by Discern Expert. Performed By: #### 48574834, 2862028, 5356533, 0262562, 33648767, 0079131, 2035927, 0450497, 7047250, 77029804, 3418212 #### [facility] [address], [place] [address]Mcxhptehzmv/Leukocytes Auto (Bld) [Pure # fraction]5.9 E9/L Normal2.0-7.5FChillicothe HospitalComment on above:Order Comment: Order Added by Discern Expert.Performed By: #### 43538555, 2222668, 5446350, 5714167, 86733233, 5105966, 4494466, 2042585, 4985103, 17910497, 8073748 #### [facility] [address], [place] [address]HJKpp 25-59-8313Zongoqvzfz [Mass/Vol]0.6 mg/dLNormal0.5-1.3 [facility] HospitalComment on above:Performed By: #### 01297531, 2791701, 1679802, 3164012, 98829111, 5889611, 1889414, 0593422, 1728775, 16081889, 4178652 #### [facility] [address] [place], [place] [address]Iohh nitrogen [Mass/Vol]15 mg/dLNormal5-21[facility] HospitalComment on above:Performed By: #### 23231230, 4037370, 2903936, 3570163, 29785489, 0534158, 5982223, 3969252, 8468431, 90572651, 0868964 #### [facility] [address], [place] [address]Nydi nitrogen/Creatinine [Mass ratio]25 No MlreuCclh94-84JebsrkKeenan Private HospitalComment on above:Performed By: #### 43265709, 6269448, 8253438, 1497093, 79928685, 0044640, 6628065, 2553487, 7615870, 95934472, 7787368 #### [facility] [address] [place], [place] [address]Lllrd gap [Moles/Vol]13 mmol/LNormal6-16[facility] HospitalComment on above:Performed By: #### 27881475, 6675610, 4820096, 7468924, 39418081, 8708686, 4811072, 3755052, 8231029, 04465063, 5230833 #### [facility] [address], [place] [address]Gdgxatq [Mass/Vol]9.5 mg/dLNormal8.9-11.1FChillicothe HospitalComment on above:Performed By: #### 82881468, 7307512, 8729599, 9101865, 80128259, 2365774, 4392754, 8930186, 7955912, 58305209, 4134601 #### [facility] [address], [place] [address]Gqptzzqb [Moles/Vol]103 mmol/VJsofah197-945EjpzneKeenan Private HospitalComment on above:Performed By: #### 44279017, 5131619, 6457737, 5583437, 23358002, 8398033, 2005153, 4744989, 3823074, 03187393, 1679180 #### [facility] [address], [place] [address]OY2 [Moles/Vol]24 mmol/NEkrzui70-85UtanheKeenan Private Hospital Comment on above:Performed By: #### 62528432, 3363728, 0186080, 2975122, 45960979, 5990937, 0880252, 6658073, 0232885, 54386370, 7986806 #### [facility] [address], [place] [address]Iwejgdu [Mass/Vol]102 mg/vNVrddto56-931OgkortKeenan Private HospitalComment on above:Result Comment: If this glucose result represents a fasting glucose, interpretation should refer tothe following reference range: 55-99 mg/dLPerformed By: #### 91789910, 0310225, 0011377, 0846204, 94231155, 8194085, 9590666, 9125969, 0028021, 33831047, 4971587 #### [facility] [address], [place] [address]Ezhowsqyx [Moles/Vol]3.6 mmol/LNormal3.5-5.3FChillicothe HospitalComment on above:Performed By: #### 68502144, 5797768, 8259742, 1399478, 34239028, 8124037, 4650810, 7432470, 7515500, 74837163, 0349622 #### [facility] [address], [place] [address]Vdmwjt [Moles/Vol]136 mmol/CHkgcoy116-214PjeclyUPMC Western MarylandComment on above:Performed By: #### 13712386, 3870175, 2282532, 1961376, 44948502, 1508955, 1346425, 0116502, 4764766, 69499214, 9936787 #### [facility] [address], [place] [address]FVO w/ Auto Diffon 76-51-5712Qelvbswgxtm distribution width (RBC) [Ratio]14.2 %Ardddt55.9-14.2FChillicothe HospitalComment on above: Performed By: #### 01727207, 8055163, 0051675, 0012961, 70074188, 6929597, 0439345, 7781486, 5084331, 81105519, 2219417 #### [facility] [address], [place] [address]Xjqycketcj (Bld) [Volume fraction]39.4 %Gxpcdy83.0-46.0[facility] HospitalComment on above:Performed By: #### 51377306, 9519357, 2983133, 3736553, 83041577, 9395400, 4439244, 6846723, 2668113, 33421875, 4236710 #### [facility] [address], [place] [address]Fsvnzzmeof (Bld) [Mass/Vol]13.3 g/tYSspuwz86.0-16.0[facility] HospitalComment on above:Performed By: #### 38968076, 3396407, 4260090, 5346453, 25917481, 0858566, 4215787, 0628773, 4894441, 59007542, 0451926 #### [facility] [address], [place] [address]FNE (RBC) [Entitic mass]29.2 duGwyhzo49.0-34.0[facility] HospitalComment on above:Performed By: #### 42424342, 9318631, 6696614, 6130801, 93150753, 5492600, 6535449, 2376496, 3470384, 81870082, 6473045 #### [facility] [address], [place] [address]DXVH (RBC) [Mass/Vol]33.8 g/jAJfximx77.3-35.7FChillicothe HospitalComment on above:Performed By: #### 60651239, 2481586, 3743523, 3038764, 61985137, 6339063, 2777888, 2794025, 3688919, 57393125, 3847630 #### [facility] [address], [place] [address]MYA (RBC) [Entitic vol]86.6 wMYtlzkh56.0-100.0[facility] HospitalComment on above:Performed By: #### 75515631, 3218905, 8745262, 2011578, 40119190, 9909933, 4321585, 6624298, 0375657, 36415633, 0093767 #### [facility] [address], [place] [address]Vwmwdyha mean volume (Bld) [Entitic vol]8.8 fLNormal6.4-10.8 [facility] HospitalComment on above:Performed By: #### 26080587, 3706000, 3241657, 8013374, 91950846, 9542949, 4468729, 9139052, 9439942, 84914646, 9028703 #### [facility] [address], [place] [address]Jdzaoyqpa (Bld) [#/Vol]307.0 E9/ZNzctso636.0-500.0[facility] HospitalComment on above:Performed By: #### 05975724, 7837685, 0733978, 0683117, 24048214, 5398488, 2753234, 3932165, 1044556, 22367648, 3496352 #### [facility] [address] [place] [address]FBR (Bld) [#/Vol]4.6 E12/LNormal4.3-5.9[facility] HospitalComment on above:Performed By: #### 88856005, 0226021, 9154082, 5771044, 32763924, 2104362, 0409961, 0363327, 6499110, 52272230, 6183642 #### [facility] [address] [place] [address]FZG corrected for nucl RBC Auto (Bld) [#/Vol]9.9 E9/LNormal 4.0-11.0[facility] HospitalComment on above:Performed By: #### 86181122, 5786358, 3897248, 2616374, 50683486, 3631461, 6994979, 3321420, 0347843, 82427603, 5459396 #### [facility] [address] [place] [address]PYtz 11-92-4819DJ [Catalytic activity/Vol]53 Int._Unit/LNormal 14-261Ke[facility]an Private HospitalComment on above:Performed By: #### 23299340, 1398398, 2755706, 3063454, 35244167, 4404353, 4892269, 4863506, 4611717, 17727612, 8907769 #### [facility] [address] [place] [address]JP Clinical Summaryon 24-64-2474RS Clinical Summary [address] [address] ED Clinical Summary Person Information Name: ARIADNA HALEY/[facility] Age: 37 Years : 1980 12:00 AM Sex: Female Language: Turkmen PCP: Charles Nicole DO Marital Status: Single Phone: [phone] Visit Id: Visit Reason: Anxiety; Paraesthesia; NUMBNESS [...] 09/14/2018 12:17 AM 09/14/2018 12:17 AM ADDRESS: [address] [place] [id number] [facility] DOC NOTES: MEDICAL INFORMATION: Prescriptions Given: Prescription Display gabapentin (gabapentin 100 mg Cap) 100 mg = 1 cap(s), Oral, Daily, X 7 day(s), # 7 cap(s), Refills(s) 0, Pharmacy: [facility] gabapentin (gabapentin 100 mg Cap) 100 mg = 1 cap(s), Oral, Daily, X 7 day(s), # 7 cap(s), Refills(s) 0, Pharmacy: [facility]/pharmacy #[id number] magnesium oxide (magnesium oxide 400 mg Tab) 400 mg = 1 tab(s), Oral, Daily, X 7 day(s), # 7 tab(s), Refills(s) 0, Pharmacy: [facility] magnesium oxide (magnesium oxide 400 mg Tab) 400 mg = 1 tab(s), Oral, Daily, X 7 day(s), # 7 tab(s), Refills(s) 0, Pharmacy: [facility]/pharmacy #[id number] Home Meds Display metformin (metformin 500 mg ER Tab) 250 mg, Oral, BID, Refills(s) 0 PATIENT EDUCATION INFORMATION: Instructions: Paresthesia, Qxwc-tx-Rbzu; Restless Legs Syndrome Follow up: With: Address: When: [facility] [place] [address] Business (1) Within 1 to 2 days Comments: neurologist you may also follow up with him With: Address: When: [address] [address] Business (1) Within 1 to 2 days Comments: Return to ED if symptoms worsen DIAGNOSIS: 1:Restless leg syndromeNormalFisher Esmeralda Medical CenterED Note-Nursingon 72-42-8075BR Note-NursingPt up to RR, gait steady.[facility] CenterED Note-NursingAware of need for urine specimen, denies urge at present, states will notify when able to produce sample, will monitor.NormalClinton Memorial Hospital Medical CenterED Note-Physicianon [id number] Note-PhysicianBasic Information Time Seen: Génesis Lozoya DO [...] Sayda Kelley Within 1 to [address] [address]- [facility] ([facility] Additional Instructions: neurologist you may also follow up with him Charles Nicole Within 1 to [address] [place] [address]- [facility] (1) Additional Instructions: Return to ED if symptoms worsen Patient Education Paresthesia, Tbfs-ay-Sgfr Restless Legs Syndrome Problem List/Past Medical History [...] Lymph Auto: 30.6 % (09/13/18 23:03:00 EDT) Mcnairy Auto: 7.2 % (09/13/18 23:03:00 EDT) Eos Auto: 2.2 % (09/13/18 23:03:00 EDT) Basophil Auto: 0.6 % (09/13/18 23:03:00 EDT) Neutro Absolute: 5.9 E9/L (09/13/18 23:03:00 EDT) Lymph Absolute: 3 E9/L (09/13/18 23:03:00 EDT) Mcnairy Absolute: 0.7 E9/L (09/13/18 23:03:00 EDT) Eos [...] EDT) Diagnostic Results No qualifying data available.NormalFisher Esmeralda Medical CenterComment on above: Result Comment: Electronically Signed By: Génesis Lozoya DO\.dyan\Date and Time Signed: 09/14/18 01:59 EDTED Patient Education Noteon [id number] Patient Education NoteFamily Medicine Paresthesia Paresthesia is [...] Document Reviewed: 01/29/2012 ExitCare? Patient Information ?2014 [employer]. This information is not intended to replace [...] ? Drawing. ? Crawling. ? Worming. ? Sullivan. ? Tingling. ? Pins and needles. ? [...] Document Reviewed: 08/06/2011 ExitCare? Patient Information ?2014 [employer]. This information is not intended to replace advice given to you by your health care provider. Make sure you discuss any questions you have with yourhealth care provider.[facility] Patient Summaryon [id number] Patient Summary [place] [address] Patient Discharge Instructions Person Information Name: ARIADNA HALEY Age: 37 Years Arrival Date: 09/13/2018 10:16 PM Discharge Diagnosis: 1:Restless leg syndrome Primary Care Physician: Charles Nicole DO Provider Information Primary Provider: Génesis Lozoya DO Advanced Franchise Sales Manager:None The exam and treatment you received in the Emergency Department were for an urgent problem and are not intended as complete care. It is important that you follow up with a doctor, nurse practitioner,or physician?s video library assistant for ongoing care. If your symptoms [...] Instructions: With: Address: When: Sayda Kelley [facility], [address] [place], [place] [address], [place] [address] Business (1) Within 1 to 2 days Comments: neurologist you may also follow up with him With: Address: When: [place] [address] [place] [address] Business (1) Within 1 to 2 days Comments: Return to ED if symptoms worsen In the event that this physician does not participate in your insurance network, please consult with your insurance company to find a nearby participating provider. Patient Education Materials: Paresthesia, Jxse-dm-Kppw; Restless Legs Syndrome A MESSAGE TO ALL PATIENTS REGARDING OPIOIDS PRESCRIPTION OPIOIDS: WHAT YOU NEED TO KNOW Prescription opioids can be used to help relieve bhuqfaki-ii-rpipgm pain and are often prescribed following a [...] your community drug take- back program or yourJagTagrmOcean Lithotripsy mail-back program, or flush them down the toilet, following guidance from the Food and Drug Administration (www.fda.gov/Drugs/ResourcesForYou). ? Visit www.cdc.gov/drugoverdose to learn about the risks of opioids abuse and overdose. ? If you believe you may be struggling with addiction, tell your health director career services and ask for guidance or call SAMHSA?S National Helpline at 3-780-975-XDQQ. v Source: US Department of Health and Human Services/Center for Disease Control & Prevention [facility] Medications Given: Medication Dose Route Sodium Chloride 0.9% intravenous solution 1000.00 mL Initial Volume 1000.00 mL/hr IV Piggyback Left Mid Forearm Medication Information: New Medications [facility]/pharmacy #2245, [address] [phone], [phone] gabapentin (gabapentin 100 mg Cap) 1 Capsules By Mouth every day for 7 Days. Refills: 0. magnesium oxide (magnesium oxide 400 mg Tab) 1 Tabs By Mouth every day for 7 Days. Refills: 0. [facility], [address] [facility] [place] [id number], [phone] gabapentin (gabapentin 100 mg Cap) 1 Capsules By Mouth every day for 7 Days. Refills: 0. magnesium oxide (magnesium oxide 400 mg Tab) 1 Tabs By Mouth every day for 7 Days. Refills: 0. Medications to Continue with No Changes Other Medications metformin (metformin 500 mg ER Tab) 250 Milligram By Mouth 2 times a day. Comment: Pharmacy Information: Thank you for choosing [facility] Patient Education Materials: Paresthesia Paresthesia is [...] Document Reviewed: 01/29/2012 ExitCare? Patient Information ?2015 [employer]. This information is not intended to replace [...] ? Drawing. ? Crawling. ? Worming. ? Sullivan. ? Tingling. ? Pins and needles. ? [...] Document Reviewed: 08/06/2011 ExitCare? Patient Information ?2014 [employer]. This information is not intended to replace advice given to you by your health care provider. Make sure you discuss any questions you have with yourhealth care provider. TERA Dorantes NICOLE B , have received the following patient education materials/instructions and have verbalized understanding: Patient Education Materials: Paresthesia, Wvqi-oe-Ssna; Restless Legs Syndrome Follow-up Instructions: With: Address: When: Sayda Warren [address] [place] [address] Business (1) Within 1 to 2 days Comments: neurologist you may also follow up with him With: Address: When: [address] [address] [place] (1) Within 1 to 2 days Comments: Return to ED if symptoms worsen Prescriptions: [gabapentin (gabapentin 100 mg Cap)] [gabapentin (gabapentin 100 mg Cap)] [magnesium oxide (magnesium oxide 400 mg Tab)] [magnesium oxide (magnesium oxide 400 mg Tab)] Patient Signature Date Clinician/Nurse Signature Date 09/14/18 00:21:38NormalKeenan Private HospitalHep Func Panelon 09-14-2018 Bilirubin.direct [Mass/Vol]UTCAbnormal0.1-0.9[facility] HospitalComment on above:Result Comment: Result verified by Discern Rule. Performed result UTC (Unable to Calculate) was sent as an Alpha code due the inability to calculate a valid numeric value.Performed By: #### [id number], 8685819, 6745555, 7427205, 67987966, 3909766, 5563957, 4656960, 2035862, 69686208, 6115804 #### [facility] [address] [place] [address]Bepaosu [Mass/Vol]1.1 g/dLNormal1.1-2.2FChillicothe HospitalComment on above:Performed By: #### 40392458, 0623865, 6966825, 2168934, 81618066, 5313158, 4081132, 8845056, 2936050, 96480561, 7104385 #### [facility] [address] [place] [address]Uxladsj [Mass/Vol]4.1 g/dLNormal3.3-5.0[facility] HospitalComment on above:Performed By: #### 73806065, 4391139, 6042722, 3226729, 88080994, 2114700, 6997602, 7404581, 5776126, 32137450, 3059361 #### [facility] [address] [place] [address]GDR [Catalytic activity/Vol]69 Int._Unit/AHypigc88-59TrfjejKeenan Private HospitalComment on above:Performed By: #### 51110139, 9564801, 0733201, 4652461, 39566434, 1516543, 8744301, 4202604, 7392026, 65358090, 7718120 #### [facility] [address] [place] [address]DWB No additional P-5'-P [Catalytic activity/Vol]27 Int._Unit/L Normal6-46[facility] Private HospitalComment on above:Performed By: #### 66021921, 6333795, 5541438, 6856831, 25581717, 7353351, 8321989, 5534583, 9475213, 36893136, 5051410 #### [facility] [address] [place] [address]WHK [Catalytic activity/Vol]16 Int._Unit/LNormal5-43[facility] HospitalComment on above:Performed By: #### 04266793, 6266294, 5176858, 7830783, 49851913, 3292318, 8273015, 2672207, 9848473, 26302226, 0964841 #### [facility] [address] [place], [place] [address]Jtwwcobkd [Mass/Vol]0.5 mg/dLNormal0.0-1.1FChillicothe HospitalComment on above:Performed By: #### 71859522, 9956398, 0985703, 2125180, 63954712, 8894511, 6519033, 7777288, 5797947, 09786628, 7510129 #### [facility] [address] [place], [place] [address]Xnrgbdwop.direct [Mass/Vol]mg/dLNormal0.1-0.4FChillicothe HospitalComment on above:Performed By: #### 89066434, 9969914, 9570695, 2382801, 45379630, 1935402, 1864180, 1758745, 2978877, 48694249, 2958430 #### [facility] [address] [place], [place] [address]Nryexwlx (S) [Mass/Vol]3.7 g/dLNormal1.4-4.0[facility] HospitalComment on above:Performed By: #### 07352600, 0876350, 4638142, 6633032, 32029943, 5352246, 9861316, 7753616, 9260427, 78890975, 2674283 #### [facility] [address] [place], [place] [address]Jtxzmpe [Mass/Vol]7.8 g/dLNormal6.0-7.8[facility] HospitalComment on above:Performed By: #### 35242095, 4667512, 7736101, 0850281, 83578410, 5893294, 6123645, 9268732, 3740105, 63896721, 3948236 #### [facility] [address] [place], [place] [address]Eueyydvqzwi 02-90-6664Muluilbti [Mass/Vol]1.9 mg/dLNormal 1.3-2.4FChillicothe HospitalComment on above:Performed By: #### 65112251, 8370894, 0626688, 0523226, 29820002, 6010112, 9468845, 2435750, 7845885, 01947248, 1859622 #### [facility] [address] [place], [place] [address]Jzjpmtvljtr 42-27-3770Gygffkwuv [Mass/Vol]9 ng/mLNormal<=69 [facility] HospitalComment on above:Performed By: #### 34274746, 9518961, 1779435, 2790431, 82088628, 9514070, 5336754, 8438672, 7003995, 01147106, 6395972 #### [facility] [address] [place], [place] [address]DV & PTTon 08-32-7157pTFH Coag (PPP) [Time]34.5 second(s)Normal 25.1-36.5FChillicothe HospitalComment on above:Result Comment: Heparin therapeutic range (represented by Anti-Factor Xa activity of 0.2 - 0.4 U/mL) corresponds to PTT of 56.6 - 109.0 sec.Performed By: #### 66738560, 6830242, 9767837, 6126844, 85938494, 2096967, 1280285, 4450252, 9366234, 17207827, 8702182 #### [facility] [address] [place], [place] [address]MSY Coag (PPP) [Relative time]1.0 {INR}[facility] HospitalComment on above:Result Comment: INR results are specifically intended to assess patients stabilized on long-term Anticoagulation therapy suggested INR?s ?Less Intensive Anticoagulation? 2.0 ? 3.0 Conventional Range 3.0 ? 4.5Performed By: #### 55991081, 9276188, 0892784, 1467468, 20727347, 2743608, 1503994, 0498592, 9301079, 67019223, 1689579 #### [facility] [address], [place] [address]EL Coag (PPP) [Time]11.2 second(s)Ccecjj91.2-12.9[facility] Private HospitalComment on above:Performed By: #### 62602743, 0004629, 5021211, 5990156, 37495209, 7901911, 2172510, 7715828, 8059784, 91649742, 1261930 #### [facility] [address], [place] [address]Ehfbsfsvhsqm 02-00-6298Frqwbybjh [Mass/Vol]3.8 mg/dLNormal 1.9-4.6FChillicothe HospitalComment on above:Performed By: #### 91296900, 2662075, 5538410, 9760672, 97198512, 9033437, 3250759, 1493922, 9691333, 42624156, 8526866 #### [facility] [address] [place], [place] [address]Lorhgisb 0 Hr.on 99-14-4361Otpwvphl I.cardiac [Mass/Vol]ng/mL Normal<=0.03Ke[facility]an Private HospitalComment on above:Result Comment: New Troponin Assay 10/05/13 [place] Cutoff value > or = 0.03 ng/mL in conjunction with clinical conditions of myocardial infarction. (www.escardio.org/guidelines)Performed By: #### 17044450, 2121075, 9823598, 5174249, 62465698, 5036058, 3195255, 6512104, 5047468, 47809138, 2782543 #### [facility] [address] [place], [place] [address]UI With Cult Reflexon 31-04-7623Lwfdpkbc LM Ql (Urine sed)TRACE NormalTraceFisher Atul Medical CenterComment on above:Performed By: #### 66168260, 6470450, 8525172, 0242660, 28465582, 8056527, 3196778, 5147165, 2437550, 65104645, 2865985 #### [facility] [address], [place] [address]Ovgarjvxq Ql (U)NegativeNormalNegativeFormerly Park Ridge Healther Saint Luke InstituteComment on above:Performed By: #### 37958139, 0607998, 6017272, 8670584, 62602123, 7426469, 8943327, 5165256, 7135285, 06969676, 2025803 #### [facility] [address] [place], [place] [address]Wecgalh (U)CLEARNormalClearKeenan Private HospitalComment on above:Performed By: #### 79658429, 4365425, 3486127, 2926982, 42675615, 4264130, 3709532, 2821656, 6061548, 71959846, 0588229 #### [facility] [address] [place], [place] [address]Rrnmc (U)YELLOWNormalYellowKeenan Private HospitalComment on above:Performed By: #### 05747258, 6503178, 4848687, 1216039, 21657104, 3213044, 9286936, 4817899, 3778925, 32900503, 4035440 #### [facility] [address] [place] [address]Zkatnwyiey cells.squamous LM.HPF (Urine sed) [#/Area]0-2Normal 0-2Fisher Saint Luke InstituteComment on above:Performed By: #### 57093226, 7562303, 6923498, 8488030, 52607696, 8702649, 4397804, 4904188, 8687416, 86688395, 4889350 #### [facility] [address] [place], [place] [address]Xyiaciv Test strip (U) [Mass/Vol]NegativeNormalNegativeKeenan Private HospitalComment on above:Performed By: #### 49364729, 9303207, 7340129, 7185430, 94104218, 5868198, 0067513, 2054819, 0093399, 97747761, 3992085 #### [facility] [address] [place], [place] [address]Bfdibnmlyc Ql (U)NegativeNormalNegativeKeenan Private HospitalComment on above:Performed By: #### 16470679, 1040393, 0031786, 5947639, 18373510, 4432562, 2799144, 5826855, 0040201, 60158144, 1678747 #### [facility] [address] [place], [place] [address]Dcdiosp (U) [Mass/Vol]NegativeNormalNegFirelands Regional Medical CenterComment on above:Performed By: #### 04548017, 7333952, 9430987, 2578305, 63981699, 3777282, 7375566, 3113895, 6797767, 64058287, 1847704 #### [facility] [address] [place], [place] [address]Sppkamu.plasma/Depew.RBC (Bld) [Mass ratio]7-1Oscflj6-0Mowrbj [facility] InstituteComment on above:Performed By: #### 32822407, 6634859, 0251308, 8719006, 75408366, 5992969, 8644846, 2350487, 5899639, 77297501, 2759946 #### [facility] [address] [place], [place] [address]Snfhj Ql (Urine sed)TRACENormMemorial Health System [facility] Comment on above:Performed By: #### 12912956, 4092878, 0625567, 6440924, 42875851, 1464526, 6513727, 7846578, 9608239, 76512056, 1940364 #### [facility] [address] [place], [place] [address]Mbixrwu Ql (U)NegativeNormalNegFirelands Regional Medical Center Comment on above:Performed By: #### 24910535, 1245256, 5233093, 0499036, 20357941, 8548955, 2617823, 2181366, 0448569, 97134122, 8085821 #### [facility] [address] [place], [place] [address]jC (U)6.0 [pH]5.0-9.0[facility] Private HospitalComment on above:Performed By: #### 12922568, 0753813, 2667867, 8561383, 65117108, 9989944, 3680063, 6730090, 3121474, 77501474, 9880109 #### [facility] [address] [place] [address]Qkkoxac (U) [Mass/Vol]NegativeNormalNegativeKeenan Private HospitalComment on above:Performed By: #### 57896740, 8306560, 6845460, 4685542, 38358075, 3324740, 3836365, 0756173, 6121169, 62102806, 5639841 #### [facility] [address] [place] [address]Ouehyjml gravity (U) [Rel density]1.0101.005-1.030Ke[facility] Private HospitalComment on above:Performed By: #### 80384546, 2607940, 7296418, 7609919, 67680223, 3862157, 0451387, 1655454, 6722103, 85847361, 7233148 #### [facility] [address] [place], [place] [address]OZ Spec DescClean CatchNormMemorial Health System Marietta Memorial HospitalComment on above:Performed By: #### 88960997, 9732694, 1922770, 9324491, 38084722, 3325420, 8385282, 3604470, 7980654, 88352464, 5687544 #### [facility] [address] [place], [place] [address]Nmbaxrumpnuj Qn (U)0.2 {Carmella'U}/dLNormal0.0-1.0[facility] HospitalComment on above:Performed By: #### 91246160, 2425134, 6957457, 7031556, 67814596, 4901101, 7481574, 6044274, 6257690, 41774136, 8411792 #### [facility] [address] [place], [place] [address]YSL Auto Ql (U)NegativeNormalNegativeKeenan Private HospitalComment on above:Performed By: #### 50740460, 3098358, 8079034, 6848810, 99699554, 9978582, 7403349, 4587770, 4271130, 26749380, 3835256 #### [facility] [address] [place], [place] [address]WOB LM.HPF (Urine sed) [#/Area]3-5Uecsdt1-2DskvrxChillicothe HospitalComment on above:Performed By: #### 07648837, 4748828, 1529859, 7038365, 17335439, 5043934, 5109936, 1877105, 7809001, 11009598, 0586409 #### [facility] [address] [place], [place] [address]YF Chest Single Viewon 80-43-1087ZQ Chest Single ViewExam Date/Time: 09/13/2018 23:44 EDT [...] Sanjay Alcocer M.D. Transcribed by: minoo Technologist: APNoalKeenan Private HospitalXR FOOT LEFT (MIN 3 VIEWS)on 49-87-8855FJ FOOT LEFT (MIN 3 VIEWS)Radiology exam is complete. No Radiologist dictation. Please follow up with ordering provider. Final resultNormalLety Mountain Vista Medical CenterXR FOOT RIGHT (MIN 3 VIEWS)on [id number] FOOT RIGHT (MIN 3 VIEWS)Radiology exam is complete. No Radiologist dictation. Please follow up with ordering provider. Final resultNormalLety Mountain Vista Medical CentereGFRon [id number]/1.73 sq M predicted among blacks MDRD (S/P/Bld) [Vol rate/Area]mL/min/{1.73_m2}Normal>=59[facility]Comment [facility] above:Order Comment: Order added by Discern Expert.Result Comment: eGFR is race adjusted. AA=.Performed By: #### [id number], [id number], [id number], [id number], [id number], [id number], [id number], [id number], [id number] #### [facility] [address], [place] [address]JUG/1.73 sq M predicted among non-blacks MDRD (S/P/Bld) [Vol rate/Area]mL/min/{1.73_m2}Normal>=59[facility] HospitalComment on above: Order Comment: Order added by Discern Expert.Result Comment: Chronic kidney disease could be indicated at eGFR's of less than 60 mL/min/1.73m2. Kidney failure is indicated at less than 15 mL/min/1.73m2.Performed By: #### [id number], [id number], [id number], [id number], [id number], [id number], [id number], [id number], [id number], [id number] #### [facility] [address] [place] [address] Vital Signs Date TimeVital SignValuePerforming [id number] 11:52-0400Body pqoxttfqaqz63.6 [degF]Tab May MD Work Phone: [facility] [employer] Mtlgip75-55-2354 11:52-0400Body weight 131.81 kgTab May MD Work Phone: 1(195)[address] [place], [place] 6288510-22-2025 11:52-0400Diastolic blood mjljlaqk25 mm[Hg]Tab May MD Work Phone: 1(641)[address] [place], [place] 6288510-22-2025 11:52-0400Heart rate95 /Keshia May MD Work Phone: 1(047)[address] [place], [place] 6288510-22-2025 11:52-0400Respiratory rate18 /Keshia May MD Work Phone: 1(978)[address] [place], [place] 6288510-22-2025 11:52-5094RjJ4% (BldA) [Mass fraction]96 %Tab May MD Work Phone: 1(789)[address] [place], [place] 6288510-22-2025 11:52-0400Systolic blood lzklyzhe312 mm[Hg]Tab May MD Work Phone: 1(185)[address] [place], [place] 6288510-21-2025 09:08-0400Diastolic blood rqaqtoxz68 mm[Hg]Gay Britt [employer] Work Phone: 1(865)960-[address] [place], [place] 1672010-21-2025 09:08-0400 Heart rate82 /minPamela Britt FILM COATER-C Work Phone: 1(215)[address] [place], [place] 7305110-21-2025 09:08-0400 SaO2% (BldA) [Mass fraction]97 %Gay Britt [employer] Work Phone: 1(054)190-[address] [place], [place] 1672010-21-2025 09:08-0400 Systolic blood iulamadi005 mm[Hg]Gay Britt [employer]C Work Phone: 1(112)560-[address] [place], [place] 1672010-10-2025 17:29-0400 Diastolic blood mm[Hg]Gay Britt [employer]C Work Phone: 1(113)418-[address] [place], [place] 1672010-10-2025 17:29-0400 Heart rate84 /minPamela Britt FILM COATER-C Work Phone: 1(443)410-[address] [place], [place] 1672010-10-2025 17:29-0400 Respiratory rate16 /minPamela Britt FILM COATER-C Work Phone: 1(419)[address]10-10-2025 17:29-0400 SaO2% (BldA) [Mass fraction]97 %Gay Britt [employer] Work Phone: 1(419)[address]10-10-2025 17:29-0400 Systolic blood bfusarly896 mm[Hg]Gay Britt [employer] Work Phone: 1(419)[address] [place], [place] 7305110-10-2025 15:06-0400 Body tbxutz667.18 cmPamela Britt FILM COATER-C Work Phone: 1(419)[address] [place], [place] 7305110-10-2025 15:06-0400 Body kqzmfgqukvm44.4 [degF]Gay Britt [employer] Work Phone: 1(419)[address] [place], [place] 7305110-10-2025 15:06-0400 Body udarpw249.27 kgPamela Britt [employer]M [employer]ATER-C Work Phone: 1(419)[address] [place], [place] 7305110-08-2025 13:34-0400 Body wwexay242.18 cmPamela Britt FILM [employer]ATER-C Work Phone: 1(419)[address] [place], [place] 7305110-08-2025 13:34-0400 Body mass index (BMI) [Ratio]43.8 kg/v3Fzfapm Britt [employer]C Work Phone: 1(419)[address] [place], [place] 7305110-08-2025 13:34-0400 Body qmzyja186 kgPamela Britt [employer]ATER[employer]C Work Phone: 1(419)[address] [place], [place] 7305110-08-2025 13:34-0400 Diastolic blood juujtixh27 mm[Hg]Gay Britt [employer] Work Phone: 1(419)[address] [place], [place] 7305110-08-2025 13:34-0400 Heart rate99 /minPamela Britt FILM [employer]ATER-C Work Phone: 1(419)[address] [place], [place] 7305110-08-2025 13:34-0400 Respiratory rate18 /minPamela Britt FILM COATER-C Work Phone: 1(419)[address] [place], [place] 7305110-08-2025 13:34-0400 SaO2% (BldA) [Mass fraction]95 %Gay De La Torre FIL[employer]C Work Phone: [facility]10-08-2025 13:34-0400 Systolic blood ncbezqev949 mm[Hg]Gay De La Torre [employer] Work Phone: 1(784)5421990[facility]10-08-2025 09:25-0400 Body zpoggk567.2 Bruno Pacheco MD Work Phone: 1(082)[address] [place], [place] 5145010-08-2025 09:25-0400Body mass index (BMI) [Ratio]45.58 kg/v1NsxuwhTerence Pacheco MD Work Phone: 1(943)[address] [place], [place] 5145010-08-2025 09:25-0400Body reyppy765 kg Terence Pacheco MD Work Phone: 1(553)[address] [place], [place] 5145010-08-2025 09:25-0400Diastolic blood yujvcrje16 mm[Hg]Terence Pacheco MD Work Phone: 1(813)[address] [place], [place] 5145010-08-2025 09:25-0400Systolic blood ryzxxwbn932 mm[Hg]Terence Pacheco MD Work Phone: 1(279)[address] [place], [place] 5145009-24-2025 09:42-0400Body qclkxy247.18 cmPkendrick De La Torre FILM [employer]ATER[employer]C Work Phone: [facility]09-24-2025 09:42-0400 Diastolic blood efwenewi26 mm[Hg]Gay De La Torre [employer] Work Phone: [facility]09-24-2025 09:42-0400 Heart rate65 /minPafrnacesco De La Torre FILM [employer]-C Work Phone: [facility]09-24-2025 09:42-0400 SaO2% (BldA) [Mass fraction]97 %Gay De La Torre [employer] Work Phone: [facility]09-24-2025 09:42-0400 Systolic blood mm[Hg]Gay Britt [employer]C Work Phone: 1(509)786-[address] [place], [place] 1672009-10-2025 11:40-0400 Diastolic blood gkjjfunp26 mm[Hg]Gay Britt [employer] Work Phone: 1(096)346-[address] [place], [place] 1672009-10-2025 11:40-0400 Heart rate86 /minPajessea Britt [employer]ATER[employer]C Work Phone: 1(828)543-[address] [place], [place] 1672009-10-2025 11:40-0400 Respiratory rate18 /minPajessea Britt [employer]ATER[employer] Work Phone: 1(058)[address]09-10-2025 11:40-0400 SaO2% (BldA) [Mass fraction]94 %Gay Britt [employer] Work Phone: 1(112)[address]09-10-2025 11:40-0400 Systolic blood axqktvpw002 mm[Hg]Gay Britt [employer] Work Phone: 1(793)[address]09-10-2025 10:11-0400 Body mecevf380.18 cmPamela Britt [employer] Work Phone: 1(799)618-[address] [place] 1672009-10-2025 10:11-0400 Body lnevoq700 kgPamela Britt [employer]ATER[employer] Work Phone: 1(915)[address]09-03-2025 14:20-0400 Diastolic blood horcclpy56 mm[Hg]Chair Keswick Work Phone: [facility]09-03-2025 14:20-0400Heart rate82 /min Chair Keswick Work Phone: [facility]09-03-2025 14:20-0400Respiratory rate 18 /minChair Keswick Work Phone: [facility]09-03-2025 14:20-8605FhI6% (BldA) [Mass fraction]98 %Chair Keswick Work Phone: [facility]09-03-2025 14:20-0400Systolic blood ktaemeyd265 mm[Hg]Chair Keswick Work Phone: [facility]09-03-2025 10:42-0400Body temperature 97.81 [degF]Chair Seo Work Phone: [facility]08-27-2025 10:38-0400Body .18 Hilton Johnmer [employer] Work Phone: 1(004)086-[address] [place] 1672008-27-2025 10:38-0400 Diastolic blood mm[Hg]Gay Johnmer [employer] Work Phone: 1(562)455-[address] [place] 1672008-27-2025 10:38-0400 Heart rate92 /minPafrancesco Johnmer [employer] Work Phone: 1(526)420-[address] [place] 1672008-27-2025 10:38-0400 SaO2% (BldA) [Mass fraction]96 %Gay Johnmer [employer] Work Phone: 7(933)633-[address] [place] 1672008-27-2025 10:38-0400 Systolic blood mm[Hg]Gay Johnmer [employer] Work Phone: 1(526)187-[address] [place] 1672008-21-2025 13:51-0400 Body gsvioweqhed18.29 [degF]Chair Seo Work Phone: [facility]08-21-2025 13:51-0400Diastolic blood gvoijslu75 mm[Hg]Chair Seo Work Phone: [facility]08-21-2025 13:51-0400Heart rate76 /min Chair Gabbi Work Phone: [facility]08-21-2025 13:51-0400Respiratory rate 20 /minChair Gabbi Work Phone: [facility]08-21-2025 13:51-1078IvV1% (BldA) [Mass fraction]98 %Chair Seo Work Phone: [facility]08-21-2025 13:51-0400Systolic blood dtczdhvy729 mm[Hg]Chair Keswick Work Phone: [facility]07-24-2025 14:10-0400Diastolic blood ecdhkszg90 mm[Hg]Chair Keswick Work Phone: [facility]07-24-2025 14:10-0400Heart rate83 /min Chair Keswick Work Phone: [facility]07-24-2025 14:10-0400Respiratory rate 18 /minChair Keswick Work Phone: [facility]07-24-2025 14:10-4913LjO6% (BldA) [Mass fraction]96 %Chair Gabbi Work Phone: [facility]07-24-2025 14:10-0400Systolic blood oyoutyht619 mm[Hg]Chair Gabbi Work Phone: [facility]07-22-2025 10:45-0400Body .18 cmPamela Britt [employer] Work Phone: 1(668)134-[address] [place], [place] 1672007-22-2025 10:45-0400 Body mass index (BMI) [Ratio]44.8 kg/j9Cbnlnn Britt [employer] Work Phone: 1(279)436-[address] [place] 1672007-22-2025 10:45-0400 Body axotvx102.72 kgPamela Britt [employer] Work Phone: 1(613)068-[address] [place] 1672007-22-2025 10:45-0400 Diastolic blood drtazare56 mm[Hg]Gay Britt [employer] Work Phone: 1(268)781-[address] [place], [place] 1672007-22-2025 10:45-0400 Heart rate63 /minPajessea Britt [employer]ATER[employer] Work Phone: 7(357)332-[address] [place] 1672007-22-2025 10:45-0400 Systolic blood mm[Hg]Gay Britt [employer] Work Phone: 1(003)977-[address] [place] 1672007-10-2025 09:08-0400 Diastolic blood kieougpi58 mm[Hg]Gay Britt [employer] Work Phone: [facility]07-10-2025 09:08-0400 Heart rate64 /minGay Johnmer FILM [employer]ATER[employer]C Work Phone: [facility]07-10-2025 09:08-0400 SaO2% (BldA) [Mass fraction]98 %Gay De La Torre [employer] Work Phone: [facility]07-10-2025 09:08-0400 Systolic blood djoumowa958 mm[Hg]Gay De La Torre [employer] Work Phone: [facility]07-09-2025 14:46-0400 Body xmrwcayyzga39.81 [degF]Chair Gabbi Work Phone: [facility]07-09-2025 14:46-0400Diastolic blood rbbxqkhu18 mm[Hg]Chair Keswick Work Phone: [facility]07-09-2025 14:46-0400Heart rate77 /min Chair Keswick Work Phone: [facility]07-09-2025 14:46-0400Respiratory rate 18 /minChair Keswick Work Phone: [facility]07-09-2025 14:46-8774OwU2% (BldA) [Mass fraction]98 %Chair Gabbi Work Phone: [facility] HospitalComment on above:[id number] 14:46-0400Systolic blood wsngytrl282 mm[Hg]Chair Keswick Work Phone: [facility]07-09-2025 09:13-0400Body goukem243.2 cmVaibhav Carvalho VOCATIONAL EXAMINER.OFFICE SERVICES ASSISTANT Work Phone: [facility]07-09-2025 09:13-0400Body mass index (BMI) [Ratio]45.12 kg/z2XgdbfrVaibhav Carvalho VOCATIONAL EXAMINER.OFFICE SERVICES ASSISTANT Work Phone: [facility]07-09-2025 09:13-0400Body temperature 97.5 [degF]Vaibhav Deven VOCATIONAL EXAMINER.OFFICE SERVICES ASSISTANT Work Phone: [facility]07-09-2025 09:13-0400Body kkvuig982.7 kgMarvelimee Deven VOCATIONAL EXAMINER.OFFICE SERVICES ASSISTANT Work Phone: [facility]07-09-2025 09:13-0400Diastolic blood vmvdirsn69 mm[Hg]Vaibhav Deven VOCATIONAL EXAMINER.OFFICE SERVICES ASSISTANT Work Phone: [facility]07-09-2025 09:13-0400Heart rate88 /min Vaibhav Deven VOCATIONAL EXAMINER.OFFICE SERVICES ASSISTANT Work Phone: [facility]07-09-2025 09:13-0400Respiratory rate 18 /minMarvelimee Deven VOCATIONAL EXAMINER.OFFICE SERVICES ASSISTANT Work Phone: [facility]07-09-2025 09:13-4996YoZ9% (BldA) [Mass fraction]98 %Vaibhav Deven VOCATIONAL EXAMINER.OFFICE SERVICES ASSISTANT Work Phone: [facility]07-09-2025 09:13-0400Systolic blood civkjcxv251 mm[Hg]Vaibhav Deven VOCATIONAL EXAMINER.OFFICE SERVICES ASSISTANT Work Phone: [facility]06-26-2025 13:47-0400Body temperature 98.01 [degF]Chair Keswick Work Phone: [facility]06-26-2025 13:47-0400Diastolic blood xmfvyuzu03 mm[Hg]Chair Keswick Work Phone: [facility]06-26-2025 13:47-0400Heart rate89 /min Chair Keswick Work Phone: [facility]06-26-2025 13:47-0400Respiratory rate 20 /minChair Gabbi Work Phone: [facility]06-26-2025 13:47-2823AtT6% (BldA) [Mass fraction]97 %Chair Keswick Work Phone: [facility]06-26-2025 13:47-0400Systolic blood trtoddpc585 mm[Hg]Chair Keswick Work Phone: [facility]06-23-2025 11:17-0400Body azfjqk970.18 cmPkendrick Britt [employer]ATER[employer] Work Phone: 8(890)546-[address] [place], [place] 1672006-23-2025 11:17-0400 Body mass index (BMI) [Ratio]44.1 kg/z8Oqqgjv Britt [employer] Work Phone: 1(827)783-[address] [place], [place] 1672006-23-2025 11:17-0400 Body awhyal343.91 kgPajessea Britt [employer]ATER[employer] Work Phone: 1(078)046-[address] [place] 1672006-23-2025 11:17-0400 Diastolic blood rhefzqrc40 mm[Hg]Gay Britt [employer] Work Phone: 1(461)675-[address] [place], [place] 1672006-23-2025 11:17-0400 Heart rate96 /minGay Britt FILM COATER-C Work Phone: 1(122)299-[address] [place], [place] 1672006-23-2025 11:17-0400 Systolic blood swvfiaen086 mm[Hg]Gay Britt [employer]C Work Phone: 1(018)160-[address] [place], [place] 1672006-10-2025 14:46-0400 Diastolic blood gxjuzyir29 mm[Hg]Chair Keswick Work Phone: [facility]06-10-2025 14:46-0400Heart rate68 /min Chair Keswick Work Phone: [facility]06-10-2025 14:46-0400Respiratory rate 20 /minChair Keswick Work Phone: [facility]06-10-2025 14:46-9943PtK6% (BldA) [Mass fraction]94 %Chair Gabbi Work Phone: [facility] HospitalComment on above:[id number] 14:46-0400Systolic blood klavtgcz953 mm[Hg]Chair Keswick Work Phone: [facility]06-10-2025 09:19-0400Body temperature 97.81 [degF]Chair Keswick Work Phone: [facility]05-14-2025 14:16-0400Body mass index (BMI) [Ratio]44.01 kg/e2Bqtjb Keswick Work Phone: [facility]05-14-2025 14:16-0400Body temperature 97.59 [degF]Chair Keswick Work Phone: [facility]05-14-2025 14:16-0400Body aoxzqy552.5 kgChair Gabbi Work Phone: [facility]05-14-2025 14:16-0400Diastolic blood xysjgmdl56 mm[Hg]Chair Keswick Work Phone: [facility]05-14-2025 14:16-0400Heart rate85 /min Chair Keswick Work Phone: [facility]05-14-2025 14:16-0400Respiratory rate 16 /minChair Gabbi Work Phone: [facility]05-14-2025 14:16-9443IgY4% (BldA) [Mass fraction]96 %Chair Gabbi Work Phone: [facility]05-14-2025 14:16-0400Systolic blood rspdzetj099 mm[Hg]Chair Keswick Work Phone: [facility]05-12-2025 14:15-0400Body temperature 98.29 [degF]Chair Keswick Work Phone: [facility]05-12-2025 14:15-0400Diastolic blood mm[Hg]Chair Gabbi Work Phone: [facility]05-12-2025 14:15-0400Heart rate76 /min Chair Keswick Work Phone: [facility]05-12-2025 14:15-0400Respiratory rate 16 /minChair Gabbi Work Phone: [facility]05-12-2025 14:15-4418QcF2% (BldA) [Mass fraction]97 %Chair Keswick Work Phone: [facility]05-12-2025 14:15-0400Systolic blood hqrduamk719 mm[Hg]Chair Gabbi Work Phone: [facility]04-28-2025 13:20-0400Body temperature 97.59 [degF]Chair Gabbi Work Phone: [facility]04-28-2025 13:20-0400Diastolic blood gkhirooc98 mm[Hg]Chair Keswick Work Phone: [facility]04-28-2025 13:20-0400Heart kylf616 /minChair Gabbi Work Phone: [facility]04-28-2025 13:20-0400Respiratory rate 18 /minChair Gabbi Work Phone: [facility]04-28-2025 13:20-6749IxQ9% (BldA) [Mass fraction]97 %Chair Gabbi Work Phone: [facility]04-28-2025 13:20-0400Systolic blood dvjqasrp169 mm[Hg]Chair Gabbi Work Phone: [facility]04-16-2025 16:17-0400Heart rate90 /min Gay De La Torre FIL[employer] Work Phone: [facility]04-16-2025 16:17-0400 SaO2% (BldA) [Mass fraction]97 %Gay De La Torre [employer]-C Work Phone: [facility]04-16-2025 13:54-0400 Diastolic blood ypccstgc26 mm[Hg]Chair Gabbi Work Phone: [facility]04-16-2025 13:54-0400Heart rate90 /min Chair Keswick Work Phone: [place] [address]-16-2025 13:54-0400Respiratory rate 18 /minChair Gabbi Work Phone: [place] [address]-16-2025 13:54-2874PpY1% (BldA) [Mass fraction]97 %Chair Gabbi Work Phone: [place] [address]-16-2025 13:54-0400Systolic blood okwobokk752 mm[Hg]Chair Gabbi Work Phone: [place] [address]-16-2025 08:43-0400Body ijvnqb504.2 cmJaimee Deven VOCATIONAL EXAMINER.OFFICE SERVICES ASSISTANT Work Phone: [place] [address]-16-2025 08:43-0400Body mass index (BMI) [Ratio]45.5 kg/c4Bxirgm Deven VOCATIONAL EXAMINER.OFFICE SERVICES ASSISTANT Work Phone: [place] [address]-16-2025 08:43-0400Body temperature 97.5 [degF]Vaibhav Deven VOCATIONAL EXAMINER.OFFICE SERVICES ASSISTANT Work Phone: [place] [address]-16-2025 08:43-0400Body kelzyo814.8 kgJaimee Deven VOCATIONAL EXAMINER.OFFICE SERVICES ASSISTANT Work Phone: [place] [address]-16-2025 08:43-0400Diastolic blood qykjhzfz99 mm[Hg]Vaibhav Deven VOCATIONAL EXAMINER.OFFICE SERVICES ASSISTANT Work Phone: [place] [address]-16-2025 08:43-0400Heart rate77 /min Vaibhav Deven VOCATIONAL EXAMINER.OFFICE SERVICES ASSISTANT Work Phone: [place] [address]-16-2025 08:43-0400Respiratory rate 18 /minJaimee Deven VOCATIONAL EXAMINER.OFFICE SERVICES ASSISTANT Work Phone: [place] [address]-16-2025 08:43-1385YpH3% (BldA) [Mass fraction]97 %Vaibhav Deven VOCATIONAL EXAMINER.OFFICE SERVICES ASSISTANT Work Phone: [place] [address]-16-2025 08:43-0400Systolic blood debexifo423 mm[Hg]Vaibhav Hernandezjulia DODSONOFFICE SERVICES ASSISTANT Work Phone: [facility]04-14-2025 15:04-0400Body .2 cmGordo Barfield MD [facility] Phone: [facility]tfwuy[facility]8692 15:04-0400Body mass index (BMI) [Ratio]44.32 kg/o2VudfntGordo Barfield MD Work Phone: [place] [address]Qohoqezhfr39-01-3488 15:04-0400Body pnxiut092.37 kgGordo Barfield MD Work Phone: [place] [address]Jitkojzqrs30-40-6829 15:04-0400Diastolic blood hbqdwtyu89 mm[Hg]Gordo Barfield MD Work Phone: [facility] CenterWcbqwgpyhp32-12-7884 15:04-0400Heart tlgv105 /min Gordo Barfield MD Work Phone: [place] [address]Btupgweoeg03-19-7550 15:04-0400Systolic blood necyqdfb383 mm[Hg]Gordo Barfield MD Work Phone: [place] [address]Ywoqjrwawc69-25-7875 14:36-0400Diastolic blood rgqgnibf78 mm[Hg]Chair Gabbi Work Phone: [facility]03-18-2025 14:36-0400Heart rate83 /min Chair Keswick Work Phone: [facility]03-18-2025 14:36-0400Respiratory rate 18 /minChair Keswick Work Phone: [place] [address]-18-2025 14:36-0618LoF7% (BldA) [Mass fraction]97 %Chair Keswick Work Phone: [place] [address]-18-2025 14:36-0400Systolic blood iscycnlz629 mm[Hg]Chair Gabbi Work Phone: [place] [address]-18-2025 10:54-0400Body temperature 98.01 [degF]Chair Seo Work Phone: [facility]03-10-2025 16:05-0400Diastolic blood fmnoraid32 mm[Hg]Gay Britt FILM COATER-C Work Phone: [facility]03-10-2025 16:05-0400 Heart rwsm052 /minPafrancesco Johnmer FILM COATER-C Work Phone: [facility]03-10-2025 16:05-0400 SaO2% (BldA) [Mass fraction]96 %Gay Britt FILM [employer]ATER-C Work Phone: [facility]03-10-2025 16:05-0400 Systolic blood uwjyxjeo674 mm[Hg]Gayomer Johnmer FILM COATER-C Work Phone: [facility]03-05-2025 15:06-0500 Body vlkekq595.2 cmLois Holm MD Work Phone: 1(373)772-[address] [place], [place] 8122703-05-2025 15:06-0500 Body mass index (BMI) [Ratio]44.92 kg/x0LiupwoLois Holm MD Work Phone: 3(855)988-[address] [place], [place] 8122703-05-2025 15:06-0500 Body ustdkf121.09 kgLois Holm MD Work Phone: 2(139)131-[address] [place], [place] 8122703-05-2025 15:06-0500 Diastolic blood dbaasiak68 mm[Hg]Lois Holm MD Work Phone: 0(890)356-[address] [place], [place] 8122703-05-2025 15:06-0500 Heart rate84 /minLois Holm MD Work Phone: [address] [place], [place] 7732003-05-2025 15:06-0500 Systolic blood owoykbsb519 mm[Hg]Lois Holm MD Work Phone: [facility]02-26-2025 11:27-0500 Diastolic blood mm[Hg]Gay De La Torre FILM COATER-C Work Phone: [facility]02-26-2025 11:27-0500 Heart rate78 /minGay Britt FILM COATER-C Work Phone: 1(342)970-[address] [place], [place] 1672002-26-2025 11:27-0500 Respiratory rate16 /minPajessea Britt FILM COATER-C Work Phone: 1(137)128-[address] [place], [place] 1672002-26-2025 11:27-0500 SaO2% (BldA) [Mass fraction]96 %Gay De La Torre FILM COATER-C Work Phone: 1(214)569-[address] [place], [place] 1672002-26-2025 11:27-0500 Systolic blood tvehwdjv170 mm[Hg]Gay Britt FILM COATER-C Work Phone: 1(722)627-[address] [place], [place] 1672002-26-2025 09:54-0500 Body htwisg009.18 cmPamela Britt FILM COATER-C Work Phone: 1(568)989-[address] [place], [place] 1672002-26-2025 09:54-0500 Body ptwlyy952 kgPamela Britt FILM COATER-C Work Phone: 1(313)780-[address] [place], [place] 1672002-19-2025 14:16-0500 Body upwmwrvpdla05.91 [degF]Marky Gasca PA-C Work Phone: [facility]02-18-2025 14:30-0500Body temperature 97.39 [degF]Chair Gabbi Work Phone: [facility]02-18-2025 14:30-0500Diastolic blood xukehhvl56 mm[Hg]Chair Keswick Work Phone: [facility]02-18-2025 14:30-0500Heart rate69 /min Chair Keswick Work Phone: [facility]02-18-2025 14:30-0500Respiratory rate 18 /minChair Gabbi Work Phone: [facility]02-18-2025 14:30-1067DtW3% (BldA) [Mass fraction]98 %Chair Keswick Work Phone: [place] [address]-18-2025 14:30-0500Systolic blood ltzjnigp768 mm[Hg]Chair Gabbi Work Phone: [facility]02-17-2025 15:25-0500Diastolic blood mm[Hg][facility]02-17-2025 15:25-0500Heart ubma456 /minC[facility]02-17-2025 15:25-6329KcO1% (BldA) [Mass fraction]97 %[facility]02-17-2025 15:25-0500 Systolic blood mm[Hg][facility]01-21-2025 14:55-0500Diastolic blood uxbvzjhy28 mm[Hg]Chair Gabbi Work Phone: [facility]01-21-2025 14:55-0500Heart rate70 /min Chair Gabbi Work Phone: [facility]01-21-2025 14:55-0500Respiratory rate 18 /minChair Keswick Work Phone: [facility]01-21-2025 14:55-5191BiF0% (BldA) [Mass fraction]98 %Chair Gabbi Work Phone: [facility]01-21-2025 14:55-0500Systolic blood nttjqfma29 mm[Hg]Chair Gabbi Work Phone: [facility]01-21-2025 08:55-0500Body mass index (BMI) [Ratio]45.08 kg/u2IddlgfVaibhav Carvalho VOCATIONAL EXAMINER.OFFICE SERVICES ASSISTANT Work Phone: [facility]01-21-2025 08:55-0500Body temperature 97.59 [degF]Vaibhav Carvalho VOCATIONAL EXAMINER.OFFICE SERVICES ASSISTANT Work Phone: [facility]01-21-2025 08:55-0500Body hpdmci674.6 kgVaibhav Carvalho VOCATIONAL EXAMINER.OFFICE SERVICES ASSISTANT Work Phone: [facility]01-21-2025 08:55-0500Diastolic blood sviieprf22 mm[Hg]Vaibhav Deven VOCATIONAL EXAMINER.OFFICE SERVICES ASSISTANT Work Phone: [facility]01-21-2025 08:55-0500Heart rate79 /min Vaibhav Deven VOCATIONAL EXAMINER.OFFICE SERVICES ASSISTANT Work Phone: [facility]01-21-2025 08:55-0500Respiratory rate 16 /minVaibhav Hernandezod VOCATIONAL EXAMINER.OFFICE SERVICES ASSISTANT Work Phone: [facility]01-21-2025 08:55-3564GlX8% (BldA) [Mass fraction]98 %Vaibhav Deven VOCATIONAL EXAMINER.OFFICE SERVICES ASSISTANT Work Phone: [facility]01-21-2025 08:55-0500Systolic blood rutpzzbt597 mm[Hg]Vaibhav Deven VOCATIONAL EXAMINER.OFFICE SERVICES ASSISTANT Work Phone: [facility]01-14-2025 11:37-0500Body mass index (BMI) [Ratio]45.08 kg/m2Oly WARREN Work Phone: [facility] CenterRhjmfqtjws65-81-5384 11:37-0500Body xtukeq587.54 kgOly WARREN Work Phone: [facility] CenterMxrushetbq09-08-0333 11:37-0500Diastolic blood rryapuqs62 mm[Hg]Oly WARREN Work Phone: [facility] CenterJapwiukhpg21-95-0554 11:37-0500Systolic blood qdqyxbpv182 mm[Hg]Oly WARREN Work Phone: [facility] CenterNrfeavvcav65-79-9549 15:02-0500Body temperature 97.3 [degF]Chair Gabbi Work Phone: [facility]12-27-2024 15:02-0500Diastolic blood wnjqeqtz19 mm[Hg]Chair Gabbi Work Phone: [facility]12-27-2024 15:02-0500Heart rate73 /min Chair Gabbi Work Phone: [facility]12-27-2024 15:02-0500Respiratory rate 20 /minChair Gabbi Work Phone: [facility]12-27-2024 15:02-8401AmR6% (BldA) [Mass fraction]98 %Chair Gabbi Work Phone: [facility] HospitalComment on above:[id number] 15:02-0500Systolic blood gvqslpro716 mm[Hg]Chair Keswick Work Phone: [facility]12-04-2024 09:31-0500Body temperature 97.59 [degF]Ma Joanna Work Phone: [facility]12-04-2024 09:31-0500Diastolic blood mm[Hg]Ma Sand Work Phone: [facility] HospitalComment on above:[id number] 09:31-0500Heart rate66 /minMa Sand Work Phone: [facility]12-04-2024 09:31-0500Respiratory rate 16 /minMa Sand Work Phone: [facility]12-04-2024 09:31-0381IjI0% (BldA) [Mass fraction]99 %Ma Joanna Work Phone: [facility]12-04-2024 09:31-0500Systolic blood mm[Hg]Ma Sand Work Phone: [facility] HospitalComment on above:[id number] 10:12-0500Body .2 cmGordo Barfield MD Work Phone: [place] [address]Esgsvopewa59-46-7251 10:12-0500Body mass index (BMI) [Ratio]44.95 kg/p4MyjptzGordo Barfield MD Work Phone: [place] [address]Emughdxcao86-25-9032 10:12-0500Body .18 kgHielyse Barfield MD Work Phone: [place] [address]Sqvwndyziq56-64-3831 10:12-0500Diastolic blood fvhiqovn48 mm[Hg]Gordo Barfield MD Work Phone: [facility] CenterYhludszybp01-58-9193 10:12-0500Systolic blood eiascbna131 mm[Hg]Gordo Barfield MD Work Phone: [facility] CenterRqgvgfasrp67-63-6875 10:00-0500Body kgznac587.2 cmHayden Arciniega MD Work Phone: 1(874)[facility]11-14-2024 10:00-0500Body mass index (BMI) [Ratio]43.07 kg/o7JdnmxwjHayden Arciniega MD Work Phone: 1(995)[facility]11-14-2024 10:00-0500Body bgxjqvvrazy33 [degF]Hayden Arciniega MD Work Phone: 1(954)[facility]11-14-2024 10:00-0500Body jfkyjm850.74 kgMojose Arciniega MD Work Phone: 1(659)[facility]11-14-2024 10:00-0500Diastolic blood esqrewen17 mm[Hg]Hayden Arciniega MD Work Phone: 1(714)[facility]11-14-2024 10:00-0500Heart rate 86 /minMojose Arciniega MD Work Phone: 1(574)[facility]11-14-2024 10:00-6876ZoT9% (BldA) [Mass fraction]97 %Hayden Arciniega MD Work Phone: 1(033)[facility]11-14-2024 10:00-0500Systolic blood mmndatjh668 mm[Hg]Hayden Arciniega MD Work Phone: 1(864)[facility]11-10-2024 13:27-0500Body mass index (BMI) [Ratio]45.42 kg/m2Marky Nichols DO Work Phone: no[facility] CenterZrtkdwdrud77-65-6463 13:27-0500Body temperature 98.71 [degF]Marky Nichols DO Work Phone: no[facility] CenterWagowdnrpy49-26-8030 13:27-0500Body .54 kgPatennille Nichols DO Work Phone: no[facility] CenterVzpuangajs04-81-4982 13:27-0500Diastolic blood idmspzks24 mm[Hg]Marky Nichols DO Work Phone: no[facility] CenterLefdmikhmf65-39-9588 13:27-0500Heart rate78 /min Marky Nichols DO Work Phone: [place] [address]Saldbjhqoa90-06-1131 13:27-3918QnU7% (BldA) [Mass fraction]99 %Marky Nichols DO Work Phone: no[facility] CenterWarmamiyoe75-70-1465 13:27-0500Systolic blood fevyzika555 mm[Hg]Marky Nichols DO Work Phone: no[facility] CenterQlgacjuqth94-07-2228 14:35-0400Body mass index (BMI) [Ratio]44.17 kg/m2Amy Galva PA Work Phone: [facility] CenterSggxnpqvtb98-05-2558 14:35-0400Body filist093.91 kgOly Sotoey PA Work Phone: [facility] CenterMtczswgocf06-81-9428 14:35-0400Diastolic blood jliefeaj98 mm[Hg]Oly Temo PA Work Phone: no[facility] CenterUitmssdjux56-08-2169 14:35-0400Systolic blood rfxspfer250 mm[Hg]Oly Galva PA Work Phone: [facility] CenterMazxrnvywv13-02-5885 10:11-0400Body wduyhz920.2 cmMa Sand Work Phone: [facility]10-31-2024 10:11-0400Body mass index (BMI) [Ratio]43.06 kg/m2Ma Sand Work Phone: [facility]10-31-2024 10:11-0400Body temperature 97.59 [degF]Ma Sand Work Phone: [facility]10-31-2024 10:11-0400Body vwzdti851.74 kgMa Sand Work Phone: [facility]10-31-2024 10:11-0400Diastolic blood utlizghp25 mm[Hg]Ma Sand Work Phone: [facility]10-31-2024 10:11-0400Heart rate71 /min Ma Sand Work Phone: [facility]10-31-2024 10:11-0400Respiratory rate 16 /minHoda Sand Work Phone: [facility]10-31-2024 10:11-9453LmG9% (BldA) [Mass fraction]94 %Ma Sand Work Phone: [facility]10-31-2024 10:11-0400Systolic blood xnzudrxp319 mm[Hg]Ma Sand Work Phone: [facility]10-24-2024 11:24-0400Body mass index (BMI) [Ratio]43.67 kg/j2Ovgjg Skip DO Work Phone: [facility] CenterXgxyhknwce78-27-4602 11:24-0400Body mrynpp227.46 kgCorey Skip DO Work Phone: [facility] CenterQikgdruqen30-99-5028 11:24-0400Diastolic blood acbwgyqg64 mm[Hg]Luan Skip DO Work Phone: [facility] CenterGxjltnsbsd09-73-0329 11:24-0400Systolic blood svxujmzh844 mm[Hg]Luan Skip DO Work Phone: [facility] CenterMrzbgouxyd29-07-8470 09:20-0400Body cekjyc971.18 cmNP-C Gay De La Torre Work Phone: [facility]10-24-2024 09:20-0400 Body mass index (BMI) [Ratio]43 kg/m2NP-C Gay De La Torre Work Phone: [facility]10-24-2024 09:20-0400 Body csjupg056.73 kgNP-C Gay De La Torre Work Phone: [facility]09-30-2024 11:04-0400 Body omwrjeuumwm71.2 [degF]Ma Sand Work Phone: [facility]09-30-2024 11:04-0400Diastolic blood dxqqoxcg47 mm[Hg]Ma Sand Work Phone: [facility] HospitalComment on above:[id number] 11:04-0400Heart rate95 /minMa Sand Work Phone: [facility]09-30-2024 11:04-0400Respiratory rate 16 /minMa Sand Work Phone: [facility]09-30-2024 11:04-9146OvA3% (BldA) [Mass fraction]98 %Ma Sand Work Phone: [facility]09-30-2024 11:04-0400Systolic blood dxfywirj652 mm[Hg]Ma Sand Work Phone: [facility] HospitalComment on above:[id number] 09:23-0400Diastolic blood wuilmawp65 mm[Hg][employer]-C Gay De La Torre Work Phone: 1(242)034-[address] [place], [place] 1672009-25-2024 09:23-0400 Heart rate70 /minNP-C Gay De La Torre Work Phone: 1(315)592-[address] [place], [place] [address]2009-25-2024 09:23-0400 Respiratory rate16 /minNP-C Gay De La Torre Work Phone: 1(154)074-[address] [place], [place] [address]2009-25-2024 09:23-0400 SaO2% (BldA) [Mass fraction]96 %[employer] Gay De La Torre Work Phone: 1(654)041-[address] [place], [place] [address]2009-25-2024 09:23-0400 Systolic blood mm[Hg][employer]-C Gay De La Torre Work Phone: 1(068)755-[address] [place], [place] 1672009-25-2024 07:27-0400 Body koixpx127.18 cmNP-C Gay De La Torre Work Phone: 1(064)193-[address] [place], [place] [address]2009-25-2024 07:27-0400 Body qvevtc616.46 kgNP-C Gay De La Torre Work Phone: [facility]09-06-2024 11:31-0400 Body cyszrs962.6 kgC[facility]09-06-2024 11:31-0400 Diastolic blood nzoumuyw49 mm[Hg][facility]09-06-2024 11:31-0400Heart rate69 /minC[facility]09-06-2024 11:31-0018TeU8% (BldA) [Mass fraction]98 %[facility] 01-28-2024 11:31-0400Systolic blood mgxamyiu733 mm[Hg][facility]09-03-2024 11:30-0400Body .39 [degF]Ma Sand Work Phone: [facility]09-03-2024 11:30-0400Diastolic blood oqkwtpnq90 mm[Hg]Ma Sand Work Phone: [facility]09-03-2024 11:30-0400Heart rate68 /min Ma Sand Work Phone: [facility]09-03-2024 11:30-0400Respiratory rate 16 /minMa Sand Work Phone: [facility]09-03-2024 11:30-3285IcE4% (BldA) [Mass fraction]99 %Ma Sand Work Phone: [facility]09-03-2024 11:30-0400Systolic blood kqjgvqat02 mm[Hg]Ma Sand Work Phone: [facility]08-05-2024 11:16-0400Diastolic blood mm[Hg]Neda Hill PA-C Work Phone: [facility]08-05-2024 11:16-0400Systolic blood mm[Hg]Neda Hill PA-C Work Phone: [facility]08-05-2024 11:02-0400Body otruah027.2 cmNeda Hill PA-C Work Phone: [facility]08-05-2024 11:02-0400Body mass index (BMI) [Ratio]43.08 kg/z7Nwiiz Liz PA-C Work Phone: [facility]08-05-2024 11:02-0400Body temperature 97.7 [degF]Neda Rubioer PA-C Work Phone: [facility]08-05-2024 11:02-0400Body .8 kgMinedy Rubioer PA-C Work Phone: [facility]08-05-2024 11:02-0400Heart rate89 /min Neda Rubioer PA-C Work Phone: [facility]08-05-2024 11:02-0400Respiratory rate 16 /minMinedy Rubioer PA-C Work Phone: [facility]08-05-2024 11:02-9845AhG1% (BldA) [Mass fraction]98 %Neda Rubioer PA-C Work Phone: [facility]07-25-2024 14:13-0400Body pppmur379.18 cmC[facility]07-25-2024 14:13-0400Body mass index (BMI) [Ratio]42.7 kg/a6OoqnyejneC[facility] Clinic [facility] Hospital07-25-2024 14:13-0400Body dqyxhzuimhv66.6 [degF][facility]07-25-2024 14:13-0400Body xaartj780.83 kgC[facility]07-25-2024 14:13-0400Diastolic blood tibqxohs36 mm[Hg][facility]07-25-2024 14:13-0400 Heart rate75 /minC[facility]07-25-2024 14:13-0400Systolic blood pxzdkezd538 mm[Hg][facility]07-08-2024 13:43-0400 Body nycpjquungl51.59 [degF]Ma Sand Work Phone: [facility]07-08-2024 13:43-0400Diastolic blood gtssmyar80 mm[Hg]Ma Sand Work Phone: [facility]07-08-2024 13:43-0400Heart rate73 /min Ma Sand Work Phone: [facility]07-08-2024 13:43-0400Respiratory rate 16 /minMa Sand Work Phone: [facility]07-08-2024 13:43-8055WzQ7% (BldA) [Mass fraction]96 %Ma Sand Work Phone: [facility]07-08-2024 13:43-0400Systolic blood hcnefisz95 mm[Hg]Ma Sand Work Phone: [facility]06-13-2024 13:55-0400Body .18 cmC[facility]06-13-2024 13:55-0400Body jyzsuxcjwuf09.3 [degF][facility]06-13-2024 13:55-0400Diastolic blood uyoxcgyo78 mm[Hg][facility]06-13-2024 13:55-0400Heart rate62 /minC[facility]06-13-2024 13:55-0400Systolic blood wiplpxdy571 mm[Hg][facility]06-05-2024 14:44-0400Body ulwtfypdkra76 [degF]Ma Sand Work Phone: [facility]06-05-2024 14:44-0400Diastolic blood kutbvqyt56 mm[Hg]Ma Sand Work Phone: [facility]06-05-2024 14:44-0400Heart rate97 /min Ma Sand Work Phone: [facility]06-05-2024 14:44-0400Respiratory rate 18 /minMa Sand Work Phone: [facility]06-05-2024 14:44-4037YxG2% (BldA) [Mass fraction]97 %Ma Sand Work Phone: [facility]06-05-2024 14:44-0400Systolic blood lwosfylx256 mm[Hg]Ma Sand Work Phone: [facility]05-29-2024 13:10-0400Body wducud869.18 cmC[facility]05-29-2024 13:10-0400Body mass index (BMI) [Ratio]43.2 kg/p2JfyrhrpbnC[facility] Clinic [facility] Hospital05-29-2024 13:10-0400Body wcwlmwdhykk41.3 [degF][facility]05-29-2024 13:10-0400Body nplmmi289.19 kgC[facility]05-29-2024 13:10-0400Diastolic blood ikhtfhtt40 mm[Hg][facility]05-29-2024 13:10-0400 Heart rate74 /minC[facility] Clinic [facility]05-29-2024 13:10-0400Systolic blood pawujjyi669 mm[Hg][facility]05-09-2024 10:48-0400 Body obpdkjwsxix42 [degF]Ma Sand Work Phone: [facility]05-09-2024 10:48-0400Diastolic blood jylyztxv58 mm[Hg]Ma Sand Work Phone: [facility]05-09-2024 10:48-0400Heart rate71 /min Ma Sand Work Phone: [facility]05-09-2024 10:48-0400Respiratory rate 18 /minMa Sand Work Phone: [facility]05-09-2024 10:48-3950QtX6% (BldA) [Mass fraction]97 %Ma Sand Work Phone: [facility]05-09-2024 10:48-0400Systolic blood ggamtgnm967 mm[Hg]Ma Sand Work Phone: [facility]05-01-2024 14:41-0400Body lihpfa368.93 kgC[facility]04-09-2024 10:34-0400Body cubpirtxosd13.3 [degF]Ma Sand Work Phone: [place] [address]-09-2024 10:34-0400Diastolic blood mm[Hg]Ma Sand Work Phone: [place] [address]-09-2024 10:34-0400Heart rate68 /min Ma Sand Work Phone: [facility]04-09-2024 10:34-0400Respiratory rate 18 /minMa Sand Work Phone: [place] [address]-09-2024 10:34-8583OjI5% (BldA) [Mass fraction]99 %Ma Sand Work Phone: [place] [address]-09-2024 10:34-0400Systolic blood cjtvgqym717 mm[Hg]Ma Sand Work Phone: [facility]03-14-2024 11:15-0400Body temperature 97.39 [degF]Ma Sand Work Phone: [facility]03-14-2024 11:15-0400Diastolic blood fpvagmda87 mm[Hg]Ma Sand Work Phone: [place] [address]-14-2024 11:15-0400Heart rate68 /min Ma Sand Work Phone: [facility]03-14-2024 11:15-0400Respiratory rate 18 /minMa Sand Work Phone: [facility]03-14-2024 11:15-1448FwL0% (BldA) [Mass fraction]98 %Ma Sand Work Phone: [facility]03-14-2024 11:15-0400Systolic blood jplxerrm61 mm[Hg]Ma Sand Work Phone: [facility]02-20-2024 11:49-0500Body temperature 97.5 [degF]Ma Sand Work Phone: [facility]02-20-2024 11:49-0500Diastolic blood bbodicze89 mm[Hg]Ma Sand Work Phone: [facility]02-20-2024 11:49-0500Heart rate83 /min Ma Sand Work Phone: [facility]02-20-2024 11:49-0500Respiratory rate 18 /minMa Sand Work Phone: [facility]02-20-2024 11:49-4784ZbU4% (BldA) [Mass fraction]96 %Ma Sand Work Phone: [facility]02-20-2024 11:49-0500Systolic blood tcfirrmx189 mm[Hg]Ma Sand Work Phone: [facility]02-20-2024 10:01-0500Diastolic blood hnpwaihc53 mm[Hg]Lois Holm MD Work Phone: [facility]02-20-2024 10:01-0500 Systolic blood mm[Hg]Lois Holm MD Work Phone: [facility]02-20-2024 09:41-0500 Body .2 cmLois Holm MD Work Phone: [facility]02-20-2024 09:41-0500 Body mass index (BMI) [Ratio]43.85 kg/q4UlkpikLois Holm MD Work Phone: [facility]02-20-2024 09:41-0500 Body lmjuzt297.01 kgLois Holm MD Work Phone: [facility]02-20-2024 09:41-0500 Heart rate71 /minLois Holm MD Work Phone: [facility]02-13-2024 14:48-0500 Body mass index (BMI) [Ratio]41.81 kg/t9IzumwtjKade Early MD Work Phone: [facility] CenterAuipryjpra30-94-8933 14:48-0500Body .3 kgKade Early MD Work Phone: [facility] CenterGkiryfuoje57-36-1266 08:45-0500Body .2 Melissa Jasmine VOCATIONAL EXAMINER-OFFICE SERVICES ASSISTANT Work Phone: [phone]01-17-2024 08:45-0500 Body mass index (BMI) [Ratio]44.48 kg/w3BabxxMichelle Jasmine VOCATIONAL EXAMINER-OFFICE SERVICES ASSISTANT Work Phone: 0(125)[address]01-17-2024 08:45-0500 Body ptudcj866.82 kgCarselene Jasmine VOCATIONAL EXAMINER-OFFICE SERVICES ASSISTANT Work Phone: 1(406)633-[address] [place], [place] 2509001-17-2024 08:45-0500 Diastolic blood ehfbiyuk51 mm[Hg]Michelle Sharpeel VOCATIONAL EXAMINER-OFFICE SERVICES ASSISTANT Work Phone: 1(044)[address]01-17-2024 08:45-0500 Heart rate80 /minFrankselene Jasmine VOCATIONAL EXAMINER-OFFICE SERVICES ASSISTANT Work Phone: 1(739)261-[address] [place], [place] 2509001-17-2024 08:45-0500 Systolic blood mm[Hg]Michelle Jasmine VOCATIONAL EXAMINER-OFFICE SERVICES ASSISTANT Work Phone: 1(783)133-[address] [place], [place] 2509001-03-2024 17:17-0500 Body hqkofa572.83 kgChristie Phan MD Work Phone: [facility]Jwnktt50-74-8334 14:42-0500Body unyalc008.19 kgChristie Phan MD Work Phone: [facility] HospitalBxsmad03-52-4756 11:16-0400Body temperature 97.7 [degF]Ma Sand Work Phone: [facility]10-27-2023 11:16-0400Diastolic blood fymwdmqs04 mm[Hg]Ma Sand Work Phone: [facility]10-27-2023 11:16-0400Heart rate75 /min Ma Sand Work Phone: [facility]10-27-2023 11:16-0400Respiratory rate 16 /minMa Sand Work Phone: [facility]10-27-2023 11:16-3479EuV9% (BldA) [Mass fraction]96 %Hoda Sand Work Phone: [facility]10-27-2023 11:16-0400Systolic blood fvalwtnf364 mm[Hg]Hoda Sand Work Phone: [facility]09-29-2023 10:56-0400Body hwuoss598.2 cmVana Najera MD Work Phone: [facility]09-29-2023 10:56-0400Body temperature 97.39 [degF]Vera Najera MD Work Phone: [facility]09-29-2023 10:56-0400Body vteszv281.75 kgVera Najera MD Work Phone: [facility]09-29-2023 10:56-0400Diastolic blood afmrpisl04 mm[Hg]Vera Najera MD Work Phone: [facility]09-29-2023 10:56-0400Heart uqad536 /minVera Najera MD Work Phone: [facility]09-29-2023 10:56-0400Respiratory rate 16 /minVera Najera MD Work Phone: [facility]09-29-2023 10:56-3752DvL7% (BldA) [Mass fraction]96 %Vera Najera MD Work Phone: [facility]09-29-2023 10:56-0400Systolic blood xfxeasav730 mm[Hg]Vera Najera MD Work Phone: [facility]09-01-2023 12:09-0400Diastolic blood pmuaovgt48 mm[Hg]Hoda Sand Work Phone: [facility]09-01-2023 12:09-0400Systolic blood grpndokg795 mm[Hg]Hoda Sand Work Phone: [facility]09-01-2023 12:08-0400Body temperature 97.59 [degF]Ma Sand Work Phone: [facility]09-01-2023 12:08-0400Heart bhze735 /minMa Sand Work Phone: [facility]09-01-2023 12:08-0400Respiratory rate 16 /minMa Sand Work Phone: [facility]09-01-2023 12:08-6589CxX4% (BldA) [Mass fraction]97 %Ma Sand Work Phone: [facility]06-29-2023 11:00-0400Body temperature 97.2 [degF]Ma Sand Work Phone: [facility]06-29-2023 11:00-0400Diastolic blood shvdlwop28 mm[Hg]Ma Sand Work Phone: [facility]06-29-2023 11:00-0400Heart rate98 /min Ma Sand Work Phone: [facility]06-29-2023 11:00-0400Respiratory rate 16 /minMa Sand Work Phone: [facility]06-29-2023 11:00-1277UpF5% (BldA) [Mass fraction]98 %Ma Sand Work Phone: [facility]06-29-2023 11:00-0400Systolic blood zuhteabc087 mm[Hg]Ma Sand Work Phone: [facility]06-01-2023 11:51-0400Body rdjoxe241.2 cmMa Sand Work Phone: [facility]06-01-2023 11:51-0400Body yqcglo122.66 kgMa Sand Work Phone: [facility]06-01-2023 11:51-0400Respiratory rate 16 /minMa Sand Work Phone: [facility]06-01-2023 10:50-0400Body .2 Semaj Najera MD Work Phone: [facility]06-01-2023 10:50-0400Body temperature 97 [degF]Vera Najera MD Work Phone: [facility]06-01-2023 10:50-0400Body oqqflv466.75 kgVera Najera MD Work Phone: [facility]06-01-2023 10:50-0400Diastolic blood twzwwveq63 mm[Hg]Vera Najera MD Work Phone: [facility]06-01-2023 10:50-0400Heart rate78 /min Vera Najera MD Work Phone: [facility]06-01-2023 10:50-0400Respiratory rate 16 /minVera Najera MD Work Phone: [facility]06-01-2023 10:50-4666RkP0% (BldA) [Mass fraction]98 %Vera Najera MD Work Phone: [facility]06-01-2023 10:50-0400Systolic blood wuqjqwaf129 mm[Hg]Vera Najera MD Work Phone: [facility]05-04-2023 10:22-0400Body gufnmc247.2 cmMa Sand Work Phone: [facility]05-04-2023 10:22-0400Body temperature 97 [degF]Ma Sand Work Phone: [facility]05-04-2023 10:22-0400Body .2 kgMa Sand Work Phone: [facility]05-04-2023 10:22-0400Diastolic blood njrsqwfo05 mm[Hg]Ma Sand Work Phone: [facility]05-04-2023 10:22-0400Heart rate77 /min Ma Sand Work Phone: [facility]05-04-2023 10:22-0400Respiratory rate 16 /minMa Sand Work Phone: [facility]05-04-2023 10:22-4855LzU2% (BldA) [Mass fraction]97 %Hoda Marshall Work Phone: [facility]05-04-2023 10:22-0400Systolic blood mm[Hg]Hoda Marshall Work Phone: [facility]04-17-2023 14:03-0400Body qjsyky838.2 kgChristie Phan MD Work Phone: [facility] HospitalOnyuyk53-89-3252 09:45-0400Body .2 cmRebekah Rojas APRN.OFFICE SERVICES ASSISTANT Work Phone: [facility]04-06-2023 09:45-0400Body temperature 97.7 [degF]Rebekah Rojas APRN.OFFICE SERVICES ASSISTANT Work Phone: [facility]04-06-2023 09:45-0400Body imcsyg493.66 kgRebekah Rojas APRN.OFFICE SERVICES ASSISTANT Work Phone: [facility]04-06-2023 09:45-0400Diastolic blood rzmbmzyz99 mm[Hg]Rebekah Rojas APRN.OFFICE SERVICES ASSISTANT Work Phone: [facility]04-06-2023 09:45-0400Heart rate63 /min Rebekah Rojas APRN.OFFICE SERVICES ASSISTANT Work Phone: [facility]04-06-2023 09:45-0400Respiratory rate 16 /minRebekah Rojas APRN.OFFICE SERVICES ASSISTANT Work Phone: [facility]04-06-2023 09:45-6464NcW3% (BldA) [Mass fraction]96 %Rebekah Rojas APRN.OFFICE SERVICES ASSISTANT Work Phone: [facility]04-06-2023 09:45-0400Systolic blood omclonto071 mm[Hg]Rebekah Rojas APRN.OFFICE SERVICES ASSISTANT Work Phone: [facility]12-28-2022 13:28-0500Body yjcmdu651.2 Semaj Najera MD Work Phone: [facility]12-28-2022 13:28-0500Body temperature 97.7 [degF]Vera Najera MD Work Phone: [facility]12-28-2022 13:28-0500Diastolic blood hpgvgpfa32 mm[Hg]Vera Najera MD Work Phone: [facility]12-28-2022 13:28-0500Heart rate93 /min Vera Najera MD Work Phone: [facility]12-28-2022 13:28-0500Respiratory rate 16 /minVera Najera MD Work Phone: [facility]12-28-2022 13:28-4393CaG9% (BldA) [Mass fraction]97 %Vera Najera MD Work Phone: [facility]12-28-2022 13:28-0500Systolic blood pnuwptkr958 mm[Hg]Vera Najera MD Work Phone: [facility]10-26-2022 10:49-0400Body hkkoza524.2 cmVana Najera MD Work Phone: [facility]10-26-2022 10:49-0400Body temperature 97.81 [degF]Vera Najera MD Work Phone: [facility]10-26-2022 10:49-0400Body tfhgga091.4 kgVera Najera MD Work Phone: [facility]10-26-2022 10:49-0400Diastolic blood mnlszivo24 mm[Hg]Vera Najera MD Work Phone: [facility]10-26-2022 10:49-0400Heart rate86 /min Vera Najera MD Work Phone: [facility]10-26-2022 10:49-0400Respiratory rate 16 /minVera Najera MD Work Phone: [facility]10-26-2022 10:49-5777YmB3% (BldA) [Mass fraction]98 %Vera Najera MD Work Phone: [facility]10-26-2022 10:49-0400Systolic blood ponelztm185 mm[Hg]Vera Najera MD Work Phone: [facility]10-17-2022 11:41-0400Body opskmr621.2 cmChristie Phan MD Work Phone: [phone] HospitalTbulyq11-38-2187 11:41-0400Body .49 kgChristie Phan MD Work Phone: [phone] [facility] HospitalGcpqvu90-02-6302 11:41-0400Diastolic blood jfexsuzw857 mm[Hg]Christie Phan MD Work Phone: [phone] [facility] HospitalSvetyz57-80-5234 11:41-0400Systolic blood htvuxjqd942 mm[Hg]Christie Phan MD Work Phone: c[facility] HospitalTlsfau99-18-4947 10:39-0400Body naxttl217.2 Semaj Najera MD Work Phone: [facility]10-12-2022 10:39-0400Body temperature 97.5 [degF]Vera Najera MD Work Phone: [facility]10-12-2022 10:39-0400Body jeepcv630.76 kgVera Najera MD Work Phone: [facility]10-12-2022 10:39-0400Diastolic blood feaurwec57 mm[Hg]Vera Najera MD Work Phone: [facility]10-12-2022 10:39-0400Heart rate79 /min Vera Najera MD Work Phone: [facility]10-12-2022 10:39-0400Respiratory rate 16 /minVera Najera MD Work Phone: [facility]10-12-2022 10:39-8370UyI8% (BldA) [Mass fraction]99 %Vera Najera MD Work Phone: [facility]10-12-2022 10:39-0400Systolic blood vvorciys248 mm[Hg]Vera Najera MD Work Phone: [facility]07-06-2022 16:00-0400Body mpebum079.91 cmMichael Blank Other [employer] Other 07-06-2022 16:00-0400Body mass index (BMI) [Ratio] 37.68 kg/r9Zlrjplo Blank Other [employer] Other 07-06-2022 16:00-0400Body seljfilhxyw55.4 [degF] Mirela Baer Other [employer] Other 07-06-2022 16:00-0400Body nyzrkb469.5 kgMichael Blank Other [employer] Other 07-06-2022 16:00-0400Diastolic blood zifpwbbl42 mm[Hg] Mirela Baer Other [employer] Other 07-06-2022 16:00-0400Systolic blood yjzouutx098 mm[Hg] Mirela Baer Other [employer] Other 06-03-2022 08:18-0400Body .86 kgLynne Ni MD Work Phone: [facility]06-03-2022 08:18-0400Diastolic blood zzpxovca28 mm[Hg]Lynne Ni MD Work Phone: [facility]06-03-2022 08:18-0400Heart rate72 /min Lynne Ni MD Work Phone: [facility]06-03-2022 08:18-0400Systolic blood xoocscvr730 mm[Hg]Lynne Ni MD Work Phone: [facility]05-25-2022 15:45-0400Body npiikc539.91 cmMichael Blank Other [employer] Other 05-25-2022 15:45-0400Body mass index (BMI) [Ratio] 38.31 kg/c3Dsogwhi Blank Other [employer] Other 05-25-2022 15:45-0400Body .1 [degF] Mirela Baer Other [employer] Other 05-25-2022 15:45-0400Body unxmnb700.32 kgMichael Blank Other [employer] Other 05-25-2022 15:45-0400Diastolic blood mm[Hg] Mirela Baer Other [employer] Other 05-25-2022 15:45-0400Systolic blood kqemrdrn363 mm[Hg] Mirela Baer Other [employer] Other 04-21-2022 15:15-0400Body .91 cmMichael Blank Other [employer] Other 04-21-2022 15:15-0400Body mass index (BMI) [Ratio] 37.99 kg/p5Kvlvjig Blank Other [employer] Other 04-21-2022 15:15-0400Body lnkwaytxkur30.9 [degF] Mirela Baer Other [employer] Other 04-21-2022 15:15-0400Body ljnoyg280.41 kgMichael Buffy Other [employer] Other 04-21-2022 15:15-0400Diastolic blood yncfsrvm56 mm[Hg] Mirela Baer Other [employer] Other 04-21-2022 15:15-0400Systolic blood wojrbbts513 mm[Hg] Mirela Baer Other [employer] Other 05-17-2021 12:45-0400Diastolic blood rlvasoch00 mm[Hg] [facility] Work Phone: 1(126) 541-382105-17-2021 12:45-0400Heart rate68 /minStv [facility] Work Phone: 1(745) 524-707005-17-2021 12:45-5939LpC4% (BldA) [Mass fraction]99 % [facility] Work Phone: 1(738) [phone] 12:45-0400Systolic blood fbquhuef843 mm[Hg] [facility] Work Phone: 1(108) [phone] 10:45-0400Respiratory rate22 /minStv [facility] Work Phone: 1(210) 461-446405-17-2021 09:01-0400Body ezpwzy642.2 cmStv [facility] Work Phone: 1(613) 794-154405-17-2021 09:01-0400Body mass index (BMI) [Ratio] 36.65 kg/m2Stv [facility] Work Phone: 1(775) 128-875005-17-2021 09:01-0400Body fzceaufskwt56.81 [degF]Stv A [facility] Work Phone: 1(571) 123-377805-17-2021 09:01-0400Body dwwigp499.14 kgStv [facility] Work Phone: Encounters Encounter DateEncounter TypeCare ProviderFacilityStart: 03-21-2025 End: 97-65-7034qbkurxuthyOJHIFZQ M HOYFacility:[facility] HospitalStart: 03-21-2025 End: 97-24-9957yzlixuczjnTHBAF ABHYANKARFacility:[facility]: 03-14-2025 End: 13-50-5144Qbexla outpatient new 60 minutesTab May MD Work Phone: [facility] Infectious DiseaseComment on above:Nipple discharge in female (Primary Dx); Type 2 diabetes mellitus with other specified complication, unspecified whether terminal computer operator insulin use; Obesity with serious comorbidity in pediatric patient, unspecified obesity class, unspecified obesity type; IgG deficiency; Recurrent infections; Pilonidal abscess; Tobacco use disorderStart: 07-29-5828wlsgthsijoLXRSSM S [facility] SERVICESDAVIANNatividad Medical Center HospitalStart: 03-13-2025 End: 77-69-3473yisrythefmJdutwd Sue Cramer FILM COATER-C Work Phone: [phone]-[facility] Pain MgmtStart: 03-13-2025 End: 74-27-9956Dvtwngt encounter procedureShertobi Kang MD-[facility] Work Phone: Start: 03-09-2025 End: 26-91-4758yymqklexvyPsrbxk Sue Cramer FILM COATER-C Work Phone: -[facility] HospStart: 03-09-2025 End: 08-94-7851Cmivqvow ReferredGay De La Torre OFFICE SERVICES ASSISTANT-[facility] [place] HospStart: 03-03-2025 End: 61-72-8300syeplmzutdWaiqua Sue Cramer FILM COATER-C Work Phone: [facility] Work Phone: Start: 03-03-2025 End: 68-16-0191Boyuarfp ReferredJose Hays DO-[facility] Start: 03-02-2025 End: 35-67-0735Wvjmztzll to same day surgery Pau Blum [facility]Start: 03-02-2025 End: 65-00-1681uwkiaomctgOvbmix Sue Cramer FILM COATER-C Work Phone: [facility] Work Phone: Start: 03-02-2025 End: 81-33-4745Gfebnepk Result EncounterTerence Blum MD Work Phone: noms External Department UnsolicitedStart: 03-02-2025 End: 18-96-8863Faofebkk Result EncounterTerence Pacheco MD Work Phone: noms External Department UnsolicitedStart: 02-28-2025 End: 33-36-2451ovxjrtszccFgqreu Sue Cramer FILM COATER-C Work Phone: [facility] Work Phone: Start: 02-28-2025 End: 02-53-9206Ftxjhmh encounter procedureBandar Batista [facility] Work Phone: Start: 02-28-2025 End: 88-18-7744Ntrine outpatient new 45 minutesTerence Blum MD Work Phone: [facility] Surgical AssociatesComment on above:Pilonidal abscess (Primary Dx); Pilonidal cystStart: 02-28-2025 End: 55-55-4499ivqtgbmrvsAWBNZU VARGAS VNot AvailableStart: 02-26-2025 End: 37-38-8027dgdrlcgcvdMojkct Sue Cramer FILM COATER-C Work Phone: [facility] Work Phone: Start: 02-26-2025 End: 02-08-1682Ohtdrlhj ReferredMathew Ji MD-[facility] Start: 02-21-2025 End: 59-06-2917wutbxzerqsQUHWJBV M HOYFacility:[facility]: 02-14-2025 End: 74-92-2480Lchgmm outpatient visit 15 minutesEmjennifer English MD Work Phone: [facility] [place] DermatologyComment on above:Pilonidal cyst (Primary Dx); Hidradenitis suppurativaStart: 02-14-2025 End: 44-04-3147aunyvpqdsaRJCNC A PETITTINot AvailableStart: 02-14-2025 End: 14-30-2165Opmwuo flowsheetEmjennifer English MD Work Phone: [facility] [place] DermatologyStart: 02-14-2025 End: 87-37-8151Rnvgng flowsheetBernabe English MD Work Phone: [facility] [place] DermatologyStart: 02-14-2025 End: 03-24-8590glcmwfbkjcTyeeyb Sue Cramer FILM COATER-C Work Phone: [facility] Work Phone: Start: 02-14-2025 End: 13-09-2907Jkcpzcs encounter procedureMargie Arnett NP-[facility] Work Phone: Start: 02-08-2025 End: 99-26-2609rujzekosizPGKHQVQY TSAIFacility:[facility]: 01-31-2025 End: 70-90-3523Goggjqfhk to same day surgery centerSbobbi Kang MD-[facility] Work Phone: Start: 01-31-2025 End: 01-90-0871fahzqbzenaRdswnj Sue Cramer FILM COATER-C Work Phone: [phone] [place] [address] Work Phone: Start: 35-19-1215Xci-patient / Non-visitSbobbi Kang MD-[facility] Work Phone: Start: 01-26-2025 End: 59-20-3657ddhyohccjjHTO TITIKULWINDERNot AvailableStart: 01-24-2025 End: 45-00-4643qstlpjaqebSizuh [address] [place] Work Phone: Hematology/OncologyComment on above:Frequent infections (Primary Dx); Hypogammaglobulinemia (HCC); Bilateral leg weakness; Discoid lupus erythematosus; Elevated sed rate; Megaloblastic anemia due to vitamin B12 deficiencyStart: 01-18-2025 End: 17-98-4719Eheowrrit encounterLynne Ni MD Work Phone: RheumatologyComment on above:ResultsStart: 01-17-2025 End: 16-75-3062hxuhmbbunnVrbruv Sue Cramer FILM COATER- Work Phone: [facility] Work Phone: Start: 01-17-2025 End: 95-24-3650Xmthydb encounter procedureMargie Arnett [facility] Work Phone: Start: 01-11-2025 End: 78-41-8074vdiitjqwsaFshwt [address] [place] Work Phone: Hematology/OncologyComment on above:Other systemic lupus erythematosus with other organ involvement (HCC) (Primary Dx); Elevated LFTs; Anemia of chronic disease; Elevated sed rate; Elevated C-reactive protein (CRP); Vitamin D deficiency; Vitamin B12 deficiency; Screening-pulmonary TBStart: 12-27-2024 End: 73-64-7296fgowiibgvrTMSVI ABHYANKARFacility:[facility]: 12-14-2024 End: 26-75-6727Kcmdf [facility] Work Phone: NeurologyComment on above:CMNStart: 12-14-2024 End: 50-86-4786izibszdzgnBvosm [address] [place] Work Phone: Hematology/OncologyComment on above:Other systemic lupus erythematosus with other organ involvement (HCC) (Primary Dx)Start: 12-12-2024 End: 07-24-6741Uaujlvi encounter procedureBandar Batista APRN-[facility] Work Phone: Start: 11-30-2024 End: 77-10-1255Izhqvp-up encounterVaibhav Carvalho APRN.CNP Work Phone: Hematology/OncologyComment on above:ResultsStart: 11-30-2024 End: 67-09-0395amerksesmkEblqle Sue Cramer NP-C Work Phone: [facility] Work Phone: Start: 11-30-2024 End: 72-39-7702Njvrzxj encounter procedureMargie Arnett NP-[facility] Work Phone: Start: 11-29-2024 End: 67-48-3359Ilfvrk outpatient visit 25 minutesVaibhav Carvalho APRNANGELA Work Phone: Hematology/OncologyComment on above: Hypogammaglobulinemia (HCC) (Primary Dx); Vitamin B12 deficiency; Other iron deficiency anemia; Malaise and fatigue; Shortness of breath; Other specified disorders of breast; Pre-diabetes; Gastro-esophageal reflux disease without esophagitisStart: 11-29-2024 End: 40-05-4903sdjewviiahAvrzn [address] [place] Work Phone: Hematology/OncologyComment on above:Elevated sed rate (Primary Dx); Megaloblastic anemia due to vitamin B12 deficiency; Frequent infections; Hypogammaglobulinemia (HCC); Bilateral leg weakness; Discoid lupus erythematosusStart: 11-23-2024 End: 29-82-8169Icsxho outpatient visit 25 minutesMelissa WARREN Work Phone: [facility] DERMComment on above:Hidradenitis suppurativa (Primary Dx); Pain; Acne vulgarisStart: 11-23-2024 End: 95-41-2712hhrdiyqnlpUYOHA NORTHEIMNot AvailableStart: 07-30-1269ykvkudgcsi Janes Bazancility:[facility] Centertart: 11-22-2024 Registered Sofia BABB CredibleStart: 11-21-2024 End: 10-88-0607dlhvgbpeqhXohqpi Sue Cramer NP-C Work Phone: [facility] Work Phone: Start: 11-21-2024 End: 55-06-6642Gfuxocl encounter procedureSbobbi Kang MD-[facility] Work Phone: Start: 65-07-1936Kgw-patient / Non-visitSbobbi Kang MD-[facility] Work Phone: Start: 11-20-2024 End: 58-59-0431Gkzpxufll encounterVaibhav Carvalho APRN.CNP Work Phone: Hematology/OncologyComment on above:Lab OrdersStart: 11-16-2024 End: 70-54-1861vfcihkwamaGcqcf [address] [place] Work Phone: Hematology/OncologyComment on above:Other systemic lupus erythematosus with other organ involvement (HCC) (Primary Dx)Start: 11-15-2024 End: 57-19-5223Lhwvprcep encounterSandhya Whalen [facility] Work Phone: HOSPITAL PHARMACY HB-3Start: 11-13-2024 End: 55-46-2364Uuatclp encounter procedureSbobbi Kang MD-[facility] Work Phone: Start: 10-31-2024 End: 27-74-9696lyunjehhwqKwjtw [address] [place] Work Phone: Hematology/OncologyComment on above:Elevated sed rate (Primary Dx); Megaloblastic anemia due to vitamin B12 deficiency; Frequent infections; Hypogammaglobulinemia (HCC); Bilateral leg weakness; Discoid lupus erythematosusStart: 10-19-2024 End: 40-85-3067sbtlbstnzrLgsyu [address] [place] Work Phone: Hematology/OncologyComment on above:Other systemic lupus erythematosus with other organ involvement (HCC) (Primary Dx)Start: 10-17-2024 End: 51-07-2145potgxwtvtrHIUFGLG Lynne Sharroncility:[facility]art: 10-07-2024 End: 59-85-0885Kdjvofh encounter procedureLynne Ni MD Work Phone: [facility] CentermatologyComment on above:Other systemic lupus erythematosus with other organ involvement (HCC) (Primary Dx); Vitamin D deficiency; Fibromyalgia; CHRISTIAN positive; Elevated sed rate; Vitamin B12 deficiency; Secondary osteoarthritis of multiple sites; Chronic bilateral low back pain with bilateral sciatica; Chronic pain of toes of both feet; Long-term use of high-risk medication; 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; Bilateral hand pain; Family history of Crohn's disease; 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; Bilateral wrist painStart: 10-07-2024 End: 76-60-6621Pzegwshirxvl consultation with Jyothi Ni MD Work Phone: eumatologyStart: 10-07-2024 End: 05-78-8654hxtnhsyuhwPQVIBNC M HOYFacility:[facility]: 10-06-2024 End: 68-34-9388Gxvfzaxlx encounterLynne Ni MD Work Phone: [facility] CentermatologyComment on above:ResultsStart: 2024 End: 99-75-6520bqxgyvmtdiOiqps 14 [employer] Work Phone: Hematology/OncologyComment on above:Other systemic lupus erythematosus with other organ involvement (HCC) (Primary Dx)Start: 10-02-2024 End: 16-13-3375tmnxfivgadHwylb 2 [employer] Work Phone: Hematology/OncologyComment on above:Frequent infections (Primary Dx); Hypogammaglobulinemia (HCC); Bilateral leg weakness; Discoid lupus erythematosus; Elevated sed rate; Megaloblastic anemia due to vitamin B12 deficiency; Elevated LFTs; Anemia of chronic disease; Elevated C-reactive protein (CRP); Vitamin D deficiencyStart: 09-20-2024 End: 88-24-4961Ltdmkgani PharmacyCalhugo Quintanilla [facility] Specialty PharmacyComment on above:SPP Inflammatory Conditions - Medication Refill (Benlysta)Start: 09-19-2024 End: 42-73-4012elnhgdediqBQASE YADAVFacility:[facility] HospitalStart: 09-19-2024 End: 97-91-9831Xifojcj encounter Ligia Arroyo [facility] Work Phone: [facility] MAIN WALKERComment on above:Fibromyalgia (Primary Dx); Family history of disease of aorta; Family history of cancerGeneralized articular hypermobility (Primary Dx); Chronic pain syndrome; Discoid lupus erythematosus; Family history of pneumothorax in son; Family history of cancer; Family history of mild aortic dilation in daughterStart: 09-19-2024 End: 44-65-9312niizuecttmHFJWNULJ TSAIFacility:[facility]: 09-18-2024 End: 42-14-6975Uvjydynod encounterVera Najera MD Work Phone: Cancer Appts MCComment on above:Future Appointment Start: 09-18-2024 End: 86-66-4883egrauhucwvSorxc [address] [place] Work Phone: Hematology/OncologyComment on above:Other systemic lupus erythematosus with other organ involvement (HCC) (Primary Dx)Refill RequestStart: 09-07-2024 End: 77-82-2584Lvxljm-up encounterVaibhav Carvalho APRN.CNP Work Phone: Hematology/OncologyComment on above:ResultsStart: 09-06-2024 End: 04-23-1988Gewcgwb encounter [facility] Work Phone: Start: 09-06-2024 End: 75-33-8712Phaluzsbj encounterFearnaldo Samuel RNHematology/OncologyComment on above:Medication Preauthorization; AppointmentStart: 09-06-2024 End: 72-52-4902wnrqcxnliqRmwsl [address] [place] Work Phone: Hematology/OncologyComment on above:Frequent infections (Primary Dx); Hypogammaglobulinemia (HCC); Bilateral leg weakness; Discoid lupus erythematosus; Elevated sed rate; Megaloblastic anemia due to vitamin B12 deficiencyStart: 09-06-2024 End: 84-49-3445Qgszls outpatient visit 25 minutesVaibhav Carvalho VOCATIONAL EXAMINER.OFFICE SERVICES ASSISTANT Work Phone: Hematology/OncologyComment on above: Hypogammaglobulinemia (HCC) (Primary Dx); Vitamin B12 deficiency; Other iron deficiency anemia; Megaloblastic anemia due to vitamin B12 deficiencyStart: 09-06-2024 End: 13-66-2567uegzdxggmqORZXAM ROJULIAFacility:[facility]: 09-04-2024 End: 82-55-1616Xpwdmh outpatient visit 25 minutesGordo Barfield MD Work Phone: noms [facility] HOSPITALKComment on above:Thyroid nodule (CMS/HCC) (Primary Dx); LPRD (laryngopharyngeal reflux disease)Start: 09-04-2024 End: 39-40-2540dffbbzvpbcXHIDPT H TIMMISNot AvailableStart: 09-04-2024 End: 65-35-0421Klbpyefernanda Barfield MD Work Phone: noms ENT TANNERKStart: 09-04-2024 End: 33-98-8984Ikulizmaranda Barfield MD Work Phone: noms ENT TANNERKStart: 09-01-2024 End: 98-11-6099DiynrwYpeipsqu Tsai MD Work Phone: RheumatologyComment on above:Refill RequestStart: 08-29-2024 End: 70-06-0940iyocncmrliAPAMLSY M HOYFacility:[facility]: 08-28-2024 End: 18-53-5327Ojjvetmzl encounterVaibhav Carvalho VOCATIONAL EXAMINER.OFFICE SERVICES ASSISTANT Work Phone: Hematology/OncologyComment on above:Lab OrdersStart: 08-24-2024 End: 64-18-6836Vxmwqzkbx Result EncounterGordo Barfield MD Work Phone: noms External Department UnsolicitedStart: 08-24-2024 End: 37-10-6491Nctfwnbun Result EncounterGordo Barfield MD Work Phone: noms External Department UnsolicitedStart: 08-22-2024 End: 04-96-5085zcuonldnkpUxyhmf Sue Cramer FILM COATER-C Work Phone: [facility] Work Phone: Start: 08-22-2024 End: 03-89-5542Istcjpu encounter procedureGay LINC Work Phone: [facility] Work Phone: Start: 08-17-2024 End: 21-21-8399Omiagdflv PharmacyCalhugo Quintanilla [facility] Specialty PharmacyComment on above:SPP Inflammatory Conditions - Medication Refill (Benlysta)Start: 08-08-2024 End: 51-10-1050Wkeylrfnt encounterFelicclaritza Samuel RNHematology/OncologyComment on above:Patient QuestionStart: 08-08-2024 End: 47-62-7304rukzwwiiijAfieo Quinn [place] Work Phone: Hematology/OncologyComment on above:Elevated sed rate (Primary Dx); Megaloblastic anemia due to vitamin B12 deficiency; Frequent infections; Hypogammaglobulinemia (HCC); Bilateral leg weakness; Discoid lupus erythematosusStart: 08-03-2024 End: 53-57-9448GzspcxVpuk Rozman PA-C Work Phone: OtolaryngologyComment on above:Med Change Request Start: 07-31-2024 End: 87-66-3980lejketpgdvZsjgbjSandy LINC Work Phone: [facility] Work Phone: Start: 07-31-2024 End: 62-88-1304Ofjqlxi encounter procedureGay LINC Work Phone: [facility] Work Phone: Start: 07-26-2024 End: 35-76-1931Buthvt outpatient visit 25 minutesLois Holm MD Work Phone: [facility] CenterComment on above:Sinus tachycardia (Primary Dx); Shortness of breath; Paroxysmal supraventricular tachycardia (CMS-HCC); Essential hypertension; Obstructive sleep apnea syndrome; Morbid obesity (Multi); Current smokerStart: 07-26-2024 End: 42-21-8429agtlcbphqjRMYFPC M [facility] AmbulatoryStart: 07-25-2024 End: 18-13-0990Cqpulm flowsheetEmjennifer English MD Work Phone: noms SWS DERMStart: 07-25-2024 End: 08-85-8976Njbbwa flowsheetEmjennifer English MD Work Phone: noms [facility] DERMStart: 07-25-2024 End: 77-43-4327Uoecmv outpatient visit 25 minutesEmjennifer English MD Work Phone: noms [facility] DERMComment on above:Hidradenitis suppurativa (Primary Dx); Other seborrheic dermatitis; Lupus erythematosus tumidus (CMS/HCC); Rash and other nonspecific skin eruption; Capillary angioma; Neoplasm of uncertain behavior of skinStart: 07-25-2024 End: 86-73-6413Xmuefumvj PharmacyCalhugo Quintanilla [facility] Specialty PharmacyComment on above:SPP Inflammatory Conditions - Medication Refill (Benlysta)Start: 07-20-2024 End: 85-59-8893Ibdwfvzsilhw consultation with Mich Victoria DO Work Phone: Infectious DiseaseStart: 07-20-2024 End: 52-01-2595kmiiykkuihNsjasbz Lehman DO Work Phone: Infectious DiseaseComment on above:Nipple discharge (Primary Dx); Other systemic lupus erythematosus with other organ involvement (HCC); On prednisone therapy; Long-term use of PlaquenilStart: 22-08-9724Enp-patient / Non-visitGay De La Torre FILM COATER-C Work Phone: [facility] Mg[facility] Work Phone: Start: 07-19-2024 End: 47-66-3919Mlxsanmlx to same day surgery Yonny De La Torre FILM COATER-C Work Phone: [facility] Work Phone: Start: 07-19-2024 End: 59-64-9406mxmceeknueEvzily Sue Cramer FILM COATER-C Work Phone: [facility] Work Phone: Start: 07-12-2024 End: 28-77-6682qayzuizlyvSBQO ROZMANFacility:[facility]tart: 07-12-2024 End: 72-25-2747Hckguic encounter procedureMarky Gasca PA-C Work Phone: OtolaryngologyComment on above:LPRD (laryngopharyngeal reflux disease); Dry mouth; Current smoker; Abnormal mouth sensationStart: 07-11-2024 End: 13-25-4640cjjjpdfjnjEempw [address] [place] Work Phone: Hematology/OncologyComment on above:Elevated sed rate (Primary Dx); Megaloblastic anemia due to vitamin B12 deficiency; Frequent infections; Hypogammaglobulinemia (HCC); Bilateral leg weakness; Discoid lupus erythematosusStart: 07-10-2024 End: 27-37-5376tdvngnbuejLrtxfilrzMercy Health [facility]ard Hospital Work Phone: Start: 07-10-2024 End: 33-72-3747Qmhxzlw [facility] procedureCentral [facility] Work Phone: Start: 07-09-2024 End: 95-32-0615Kxanyntqo encounterLynne Ni MD Work Phone: RheumatologyComment on above:ResultsStart: 06-30-2024 End: 05-42-4403sgjckoanlxGKYBOFCP TSAIFacility:[facility]art: 06-29-2024 End: 19-46-9375Bdwvwcdwi PharmacyCalhugo Quintanilla [facility] Specialty PharmacyComment on above:SPP Inflammatory Conditions - Medication Refill (Benlysta)Start: 06-20-2024 End: 63-04-9007ripqumseejIdy ProviderCancer Appts MCComment on above:Iron InfusionsStart: 06-20-2024 End: 46-41-6144Y-mail encounter from caregiverCcf ProviderCancer Appts MCStart: 06-20-2024 End: 48-40-6850Lcinixw encounter procedureLynne Ni MD Work Phone: RheumatologyComment on above:FlairStart: 06-16-2024 End: 32-96-9724Mkvujlnof encounterVaibhav Carvalho APRN.CNP Work Phone: Hematology/OncologyStart: 06-15-2024 End: 17-84-7116Dbjvyshxt encounterOly WARREN Work Phone: [facility] BCP OBStart: 06-14-2024 End: 43-91-6641Mlwdlcz evaluation of patient and reportBreath Test Silverio Cp Nsg Wl Work Phone: [facility] Comment on above:Diarrhea, unspecified type (Primary Dx); Abdominal pressureStart: 06-13-2024 End: 54-26-6943Mhaqdh outpatient visit 25 minutesVaibhav Carvalho APRN.CNP Work Phone: Hematology/OncologyComment on above:Megaloblastic anemia due to vitamin B12 deficiency (Primary Dx); Hypogammaglobulinemia (HCC); Positive blood cultures; Malaise and fatigue; SOB (shortness of breath)Start: 06-13-2024 End: 69-25-2215dadblxpgwnIeug M Freeman Art TherapistArts & MedicineComment on above:Art TherapyElevated sed rate (Primary Dx); Megaloblastic anemia due to vitamin B12 deficiency; Hypogammaglobulinemia (HCC); Frequent infections; Bilateral leg weakness; Discoid lupus erythematosusStart: 06-12-2024 End: 26-11-6046Mgsms [facility] Main Work Phone: NeurologyComment on above:CMNStart: 06-12-2024 End: 49-54-4736Lwrcwfkbb encounterJamichelleozzy Deven RODRIGUEZ Work Phone: Hematology/OncologyComment on above:Lab OrdersStart: 06-06-2024 End: 05-88-9168Xicrdm flowsheetOly WARREN Work Phone: noms BCP OBStart: 06-06-2024 End: 76-38-4506Ynhopb flowsheetOly WARREN Work Phone: noms BCP OBStart: 06-06-2024 End: 61-30-5533Oxwaijcoc Result EncounterOly WARREN Work Phone: noms External Department UnsolicitedStart: 06-06-2024 End: 82-82-6068Pjozucupf PharmacyCalhugo Quintanilla [facility] Specialty PharmacyComment on above:SPP Inflammatory Conditions - Medication Refill (Benlysta)Start: 06-06-2024 End: 36-87-7661Tkgkxgo encounter procedureOly WARREN Work Phone: [facility] Work Phone: Start: 06-06-2024 End: 67-72-3153Dhdvuaya preventive med est patient 40-64yrsAmy Temo WARREN Work Phone: [facility]oms [facility] OBComment on above:Well woman exam with routine gynecological exam; Breast cancer screening by mammogram; Breast noduleStart: 05-19-2024 End: 93-18-6295kytrzfjyleNfskp 3 [place] Work Phone: Hematology/OncologyComment on above:Frequent infections (Primary Dx); Megaloblastic anemia due to vitamin B12 deficiency; Elevated sed rate; Hypogammaglobulinemia (HCC); Bilateral leg weakness; Discoid lupus erythematosusStart: 05-16-2024 End: 97-44-1722Volmjr Leighozzy Deven RODRIGUEZ Work Phone: Hematology/OncologyStart: 05-15-2024 End: 42-08-6031Spkbin WorkLori Addison [facility] HOSPITALematology/OncologyStart: 05-12-2024 End: 37-52-4655Brunrpomm PharmacyMarion Hospitalhugo Quintanilla [facility] Specialty PharmacyComment on above:SPP Inflammatory Conditions - Medication Refill (Benlysta)Start: 04-28-2024 End: 41-94-1581Zkglsd OnlyTraci Vahe LPNProMedica Physicians [facility]ascular Comment on above:Peripheral vascular disease, unspecified ([facility]-HCC) (Primary Dx); Cold extremities; Systemic lupus erythematosus (CMS-HCC)Start: 04-26-2024 End: 39-86-9934ibjyvsffpvWJLGP ABHYANKARFacility:[facility]tart: 04-26-2024 End: 01-42-4914Tistxyz evaluation of patient and reportMa Nurse Sawyer Marshall Work Phone: Hematology/OncologyComment on above:Elevated sed rate (Primary Dx); Megaloblastic anemia due to vitamin B12 deficiencyStart: 04-14-2024 End: 08-63-4893Qzantthig encounterNortOrtonville Hospital Gastroenterology Work Phone: [facility] Comment on above:Patient Update; AppointmentStart: 04-11-2024 End: 33-67-7399Mnflpquek PharmacyMarion Hospitalhugo Quintanilla [facility] Specialty PharmacyComment on above:SPP Inflammatory Conditions - Medication Refill (Benlysta)Start: 04-10-2024 End: 06-49-4984Eifztc flowsheetGordo Barfield MD Work Phone: noms ENT NORWALKStart: 04-10-2024 End: 18-23-4414Kzlvxv flowsheetGordo Barfield MD Work Phone: noms ENT NORWALKStart: 04-10-2024 End: 92-49-4164Huolifjzs encounterVera Najera MD Work Phone: Cancer Appts MCComment on above:AppointmentStart: 04-10-2024 End: 29-87-5289Vzupth outpatient visit 25 minutesGordo Barfield MD Work Phone: noms ENT NORMARY IMOGENE BASSETT HOSPITALKComment on above:LPRD (laryngopharyngeal reflux disease) (Primary Dx); Acute otalgia, rightStart: 04-10-2024 End: 43-16-1386ryixdyddzlDDWEZU H TIMMISNot AvailableStart: 04-07-2024 End: 26-39-6265Fqmtyz WorkLorgodwin Jaime LSWHematology/OncologyStart: 04-06-2024 End: 01-07-6297Cpzqusmkn Result EncounterOly WARREN Work Phone: noms External Department UnsolicitedStart: 04-06-2024 End: 87-23-9365Gxjqawqvl Result EncounterOly WARREN Work Phone: noms External Department UnsolicitedStart: 04-06-2024 End: 00-04-8775Aqsuvx outpatient new 30 minutesMohamanatoliy Arciniega MD Work Phone: [facility] V[facility] SurgeryComment on above:Systemic lupus erythematosus ([facility]-HCC) (Primary Dx); Cold extremities; Pain of lower extremity, unspecified laterality; Rheumatoid arthritis, involving unspecified site, unspecified whether rheumatoid factor present (CMS-HCC); Current smoker; 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Start: 04-03-2024 End: 48-32-9472VzeofeUcuu J Bruner DO Work Phone: [facility] SWS FM 230Comment on above:Oral thrush (Primary Dx)Start: 04-02-2024 End: 79-17-5682Qxpugrgmd encounterLynne Ni MD Work Phone: RheumatologyComment on above:ResultsStart: 04-02-2024 End: 96-64-2174Khvzed outpatient visit 25 minutesPatennille Nichols DO Work Phone: [facility] SWS UCComment on above:Oral thrush (Primary Dx) Start: 04-02-2024 End: 66-72-6425sbhufepdsvDYCW J BRUNERNot AvailableStart: 03-31-2024 End: 11-15-3860WnqtyPiedmont [facility] Main Work Phone: NeurologyComment on above:CMNStart: 03-30-2024 End: 92-29-8995vfvexurlevNdaksb Tabbaa MD Work Phone: [facility] Start: 03-27-2024 End: 78-42-6883wovqjuyewbJtecb Abhyankar MD Work Phone: Hematology/OncologyComment on above:Megaloblastic anemia due to vitamin B12 deficiency (Primary Dx); High total serum IgM; JOSE RAFAEL (obstructive sleep apnea); Elevated sed rate; Hypogammaglobulinemia (HCC); Frequent infectionsStart: 03-27-2024 End: 69-67-2223Xwcyvxditgzk consultation with patientVera Najera MD Work Phone: Hematology/OncologyStart: 03-27-2024 End: 54-54-2870kzdalhwycjVQCJR ABHYANKARFacility:[facility]tart: 03-23-2024 End: 31-41-8744aoqcgbnpqvAUB RAMEYNot AvailableStart: 03-23-2024 End: 01-05-4675Syochg outpatient visit 15 minutesOly WARREN Work Phone: noms BCP OBComment on above:Abnormal uterine bleeding (AUB); Menorrhagia with regular cycleStart: 03-23-2024 End: 59-59-7668Opeewf flowsheetOly WARREN Work Phone: noms BCP OBStart: 03-23-2024 End: 72-50-1674Rtyklw Ganesh WARREN Work Phone: noms BCP OBStart: 03-23-2024 End: 24-38-2611Pmhuahw evaluation of patient and reportMa Nurse Sawyer Marshall Work Phone: Hematology/OncologyComment on above:Elevated sed rate (Primary Dx); Megaloblastic anemia due to vitamin B12 deficiencyStart: 03-23-2024 End: 49-51-0070aconfvqejqEMFNOFQ M HOYFacility:[facility]tart: 03-20-2024 End: 76-64-4840Duoioscmj encounterAkiko Cooper MD Work Phone: [facility] Start: 03-18-2024 End: 27-49-4447Ljmlyly encounter procedureLynne Ni MD Work Phone: RheumatologyComment on above:Other systemic lupus erythematosus with other organ involvement (HCC) (Primary Dx); Fibromyalgia; CHRISTIAN positive; EDS (Emanuel-Danlos syndrome); Elevated sed rate; Vitamin D deficiency; Secondary osteoarthritis of multiple sites; Chronic bilateral low back pain with bilateral sciatica; Chronic pain of toes of both feet; Long-term use of high-risk medication; 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; Bilateral hand pain; Systemic lupus erythematosus, unspecified SLE type, unspecified organ involvement status (HCC); Vitamin B12 deficiency; Discoid lupus erythematosusStart: 03-18-2024 End: 53-87-9384Pthzhdjvuqag consultation with Jyothi Ni MD Work Phone: RheumatologyStart: 03-17-2024 End: 98-35-3214DufwhgEychnryy Tsai MD Work Phone: RheumatologyComment on above:Refill RequestStart: 03-16-2024 End: 81-16-7318Qywrpp flowsheetCorey Skip DO Work Phone: noms BCP OBStart: 03-16-2024 End: 48-77-4135Brciwr flowsheetCorey Skip DO Work Phone: [facility] BCP OBStart: 03-16-2024 End: 49-15-4385Fekdyg outpatient visit 15 minutesCorey Skip DO Work Phone: noms BCP OBComment on above:Nipple dischargeStart: 03-16-2024 End: 25-99-6256fionmhalnsXIKLO FAZIONot AvailableStart: 03-16-2024 End: 44-57-9142qdgnqzxfyuOU-C Gay De La Torre Work Phone: [facility] Work Phone: Start: 03-16-2024 End: 91-20-0398Pxhcqwr encounter procedureNP-C Gay De La Torre Work Phone: [facility] Work Phone: Start: 03-13-2024 End: 03-02-4820Bbkkwilya PharmacyCalhugo Quintanilla [facility] Specialty PharmacyComment on above:SPP Inflammatory Conditions - Medication Refill (Benlysta - NCA 09/2024)Start: 03-08-2024 End: 24-03-2836zaeznjzdhxUNUI [facility] Hospitaltart: 03-07-2024 End: 94-24-7752Qbtzs [facility] Main Work Phone: NeurologyComment on above:cmnStart: 03-02-2024 End: 89-65-8070RslqvdShlwnbueyw M Graziani FILM COATER Work Phone: [facility] NEURO 210Comment on above:Lumbosacral radiculopathy at L5; Degenerative disc disease, lumbar; Cervical radiculopathy at Q6Xlayf: 02-28-2024 End: 70-00-5815fcercynxezGP-C Gay De La Torre Work Phone: [facility] Work Phone: Start: 02-28-2024 End: 17-72-7561Pctcdez encounter procedureNPeDstiny De La Torre Work Phone: [facility] Work Phone: Start: 02-22-2024 End: 94-61-3282Eidijxeog encounterOly Elam [facility] Work Phone: Genetic HealthcareComment on above:Physician Recruiter - Other (Eds scheduling)Start: 02-21-2024 End: 66-86-3061Mdmcgpv evaluation of patient and reportMa Nurse Sawyer Marshall Work Phone: Hematology/OncologyComment on above:Elevated sed rate (Primary Dx); Megaloblastic anemia due to vitamin B12 deficiencyStart: 02-18-2024 End: 66-71-2525Vfmxuboqr encounterLynne Ni MD Work Phone: RheumatologyStart: 02-34-2246Bra-patient / Non-visit FILM COATER-C Gay De La Torre Work Phone: [facility] Work Phone: Start: 02-16-2024 End: 61-38-4176Wcglouaju to same day surgery centerNP-C Gay De La Torre Work Phone: [facility] Work Phone: Start: 02-16-2024 End: 12-04-0258xcsyyzizkgGW-C Gay De La Torre Work Phone: [facility] Work Phone: Start: 02-15-2024 End: 81-59-6671Fejnkjfti encounterLexus Heck APRN.CNP Work Phone: NeurologyComment on above:Orders (PAP RX.)Start: 02-14-2024 End: 18-42-7108Qtoylo-up encounterAidee Quintanilla [facility] Comment on above:SPP Inflammatory Conditions - Follow-up (Benlysta); Insurance Authorization ([place] Renewal Submitted)Start: 02-14-2024 End: 89-95-8124jcfnzywjltCrnkrlgvpEris Heck APRN.CNP Work Phone: NeurologyComment on above:JOSE RAFAEL (obstructive sleep apnea) (Primary Dx); Somnolence, daytimeSPP Inflammatory Conditions - Medication Refill (Benlysta - N[facility] 09/2024)Start: 02-14-2024 End: 66-55-6322Izoaswmtocmp consultation with rolaLexus Umang OFFICE SERVICES ASSISTANT Work Phone: NeurologyStart: 02-09-2024 End: 46-96-9536Offwru flowsqianZita Lynne Blandongodwin FILM COATER Work Phone: noms BM NEUROLOGYStart: 02-09-2024 End: 37-46-5009Kgfugo flowsheetZita Lynne Blandongodwin FILM COATER Work Phone: noms NEUROLOGYStart: 02-09-2024 End: 65-78-5211Xkvl/qhp telephone evaluation Cesilia Lynne Polo FILM COATER Work Phone: noms [facility] NEURO 210Comment on above:Lumbosacral radiculopathy at L5 (Primary Dx); Degenerative disc disease, lumbar; Cervical radiculopathy at R5Augud: 02-07-2024 End: 86-09-7834TdtpbdHjumsktuju Lynne Blandongodwin FILM COATER Work Phone: noms [facility] NEURO 210Comment on above:Autoimmune disease (CMS/HCC); Fibromyalgia; NumbnessStart: 01-28-2024 End: 66-87-6063tugziitvsbNrvopme Lehman DO Work Phone: [facility] Work Phone: Comment on above:Blood workStart: 01-28-2024 End: 60-58-5329Yislujk encounter procedureCentral [facility] [place] Work Phone: Start: 01-27-2024 End: 59-13-8865Gazcixuwcvff consultation with Mich Victoria DO Work Phone: Infectious DiseaseStart: 01-27-2024 End: 71-33-2739fgtsiojgmnXedpugh Lehman DO Work Phone: Infectious DiseaseComment on above:Pseudomonas infection (Primary Dx); Other systemic lupus erythematosus with other organ involvement (HCC); On prednisone therapy; Long-term use of PlaquenilStart: 01-25-2024 End: 16-32-3959Arzwvbb evaluation of patient and reportMa Nurse Sawyer Marshall Work Phone: Hematology/OncologyComment on above:Elevated sed rate (Primary Dx); Megaloblastic anemia due to vitamin B12 deficiencyStart: 01-20-2024 End: 63-67-0853JbniflRysrlho W Bauer MD Work Phone: [facility] NEURO 210Comment on above:Degenerative disc disease, lumbar (Primary Dx); Lumbosacral radiculopathy at R3Pzlnl: 01-18-2024 End: 40-14-7921Pjkkcuofo PharmacyCalhugo Quintanilla [facility] Specialty PharmacyComment on above:SPP Inflammatory Conditions - Medication Refill (Benlysta)Start: 01-12-2024 End: 69-99-2329pdayiggdciJhghggms Tsai MD Work Phone: RheumatologyStart: 01-12-2024 End: 53-00-2738Xqmulyp encounter procedureLynne Ni MD Work Phone: RheumatologyComment on above:FlairStart: 12-30-2023 Telephone encounterLynne Ni MD Work Phone: RheumatologyComment on above:ResultsStart: 12-27-2023 Telephone encounterMineyd Hill PA-C Work Phone: Hematology/OncologyComment on above:ResultsStart: 12-27-2023 End: 26-86-5976Kmsxnes evaluation of patient and reportMa Nurse Sawyer Marshall Work Phone: Hematology/OncologyComment on above:Elevated sed rate (Primary Dx); Megaloblastic anemia due to vitamin B12 deficiencyStart: 12-27-2023 End: 98-56-9272Kovrqv outpatient visit 15 minutesMinedy Hill PA-C Work Phone: Hematology/OncologyComment on above:Megaloblastic anemia due to vitamin B12 deficiency (Primary Dx); Elevated sed rate; Obstructive sleep apnea syndromeStart: 12-24-2023 End: 23-18-7859dmjuqurfkcROJWSS [facility] AmbulatoryStart: 12-16-2023 End: 23-73-8553otzoikyofuEoipmwplpSalem Regional Medical Center Work Phone: Start: 12-16-2023 End: 89-16-0408Emhbmky encounter procedureCentral [facility] Work Phone: Start: 66-54-6898Gmpmuhvxy PharmacyCalhugo Quintanilla [facility] Specialty PharmacyComment on above:SPP Inflammatory Conditions - Medication Refill (Benlysta - NCA 09/2024)Start: 11-29-2023 End: 91-60-3592Rjclbts evaluation of patient and reportMa Nurse Sawyer Marshall Work Phone: Hematology/OncologyComment on above:Elevated sed rate (Primary Dx); Megaloblastic anemia due to vitamin B12 deficiencyStart: 01-48-4087qdrvpptrwa Vera Najera MD Work Phone: Hematology/OncologyComment on above:Folic acidStart: 35-08-1323Hzkfmxpoa PharmacyAidee Quintanilla [facility] Specialty PharmacyComment on above:SPP Inflammatory Conditions - Medication Refill (Benlysta - NCA 09/2024) Start: 56-91-7965XeqocyHzbohcym Tsai MD Work Phone: RheumatologyComment on above:Refill RequestStart: 11-04-2023 End: 72-19-9576vepqnjhjgcWlkqepcqdSalem Regional Medical Center Work Phone: Start: 11-04-2023 End: 86-16-1679Ujwvsxt encounter procedureCentral [facility] Infect[facility] Work Phone: Start: 10-27-2023 End: 94-39-6095Xlrjzcp evaluation of patient and reportMa Nurse Sawyer Sand Work Phone: Hematology/OncologyComment on above:Elevated sed rate (Primary Dx); Megaloblastic anemia due to vitamin B12 deficiencyStart: 91-79-7092jmsuzntqcq Lynne Ni MD Work Phone: RheumatologyStart: 90-10-0233Agsobcw encounter procedureLynne Ni MD Work Phone: RheumatologyComment on above:CdiffStart: 10-20-2023 End: 09-54-3435gysiysyzxdNsfbazzcy [facility] Med Center Work Phone: Start: 10-20-2023 End: 34-79-8557Wslfjrm encounter procedureCentral [facility] Work Phone: Start: 47-52-1956Hsirlndjp PharmacyMarion Hospitalhugo Quintanilla [facility] Specialty PharmacyComment on above:SPP Inflammatory Conditions - Medication Refill (Benlysta)Start: 10-05-2023 End: 21-68-1031Bbqeicr encounter procedureLynne Ni MD Work Phone: eumatologyComment on above:Other systemic lupus erythematosus with other organ involvement (HCC) (Primary Dx); Elevated sed rate; Fibromyalgia; CHRISTIAN positive; Family history of Crohn's disease; Secondary osteoarthritis of multiple sites; Chronic bilateral low back pain with bilateral sciatica; Chronic pain of toes of both feet; Long-term use of Plaquenil; Long-term use of high-risk medication; 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; 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; Bilateral hand pain; History of vitamin D deficiencyStart: 10-05-2023 End: 14-32-5228Wavcxeadduar consultation with patientLynne Ni MD Work Phone: RheumatologyStart: 09-30-2023 End: 79-29-5993Lsnvwbw evaluation of patient and reportMa Nurse Sawyer Marshall Work Phone: Hematology/OncologyComment on above:Elevated sed rate (Primary Dx); Megaloblastic anemia due to vitamin B12 deficiencyStart: 09-22-2023 End: 91-86-2792Ttcwjzh encounter procedureFirnicanor Physician Group-[facility] Gastroenterology Work Phone: Start: 83-39-6286Vgsqhufgf PharmacyAidee Quintanilla [facility] Specialty PharmacyComment on above:SPP Inflammatory Conditions - Medication Refill (Benlysta)Start: 09-09-2023 End: 00-32-0144edfrflabboCwjfh Abhyankar MD Work Phone: Hematology/OncologyComment on above:Megaloblastic anemia due to vitamin B12 deficiency (Primary Dx); Obstructive sleep apnea syndrome; Chronic fatigue and malaise; High total serum IgM; JOSE RAFAEL (obstructive sleep apnea); Somnolence, daytimeStart: 09-09-2023 End: 68-74-4425Wemwilnkxtoe consultation with Treasure Najera MD Work Phone: SANDUSKYStart: 73-66-2386Jdcnhdmhm encounterLynne Ni MD Work Phone: RheumatologyComment on above:ResultsStart: 08-31-2023 End: 20-84-2535Zqljvbg evaluation of patient and reportMa Nurse Sawyer Marshall Work Phone: Hematology/OncologyComment on above:Megaloblastic anemia due to vitamin B12 deficiency (Primary Dx); Elevated sed rateStart: 19-69-3138Mjhrvkwmu PharmacyAidee Quintanilla [facility] Specialty PharmacyComment on above:SPP Inflammatory Conditions - Medication Refill (Benlysta )Start: 08-05-2023 End: 38-75-9907Rtwnthl evaluation of patient and reportMa Nurse Sawyer Marshall Work Phone: Hematology/OncologyComment on above:Megaloblastic anemia due to vitamin B12 deficiency (Primary Dx); Elevated sed rateStart: 92-51-2000Fhn-patient / Non-visitFirnicanor Physician Group-[facility] Gastroenterology Work Phone: Start: 12-98-1521exkhgesrvfXjtxoc [facility] MAINStart: 07-13-2023 End: 98-95-2391Eziytzf evaluation of patient and reportMa Nurse Sawyer Marshall Work Phone: Hematology/OncologyComment on above:Megaloblastic anemia due to vitamin B12 deficiency (Primary Dx); Elevated sed rateSPP Inflammatory Conditions - Medication Refill (Benlysta ) Start: 07-13-2023 End: 89-61-1316Uepgcm outpatient new 45 minutesLois Holm MD Work Phone: [facility] HospitalComment on above:Shortness of breath (Primary Dx); Paroxysmal supraventricular tachycardia; PAC (premature atrial contraction); Current smoker; Systemic lupus erythematosus, unspecified SLE type, unspecified organ involvement status (CMS/HCC); Palpitations; Obstructive sleep apnea syndrome; Morbid obesity (CMS/HCC); Bilateral lower extremity edemaStart: 07-06-2023 End: 61-12-5300Wewsxk outpatient visit 25 minutesKade Early MD Work Phone: noms [facility] NEURO 210Comment on above:Autoimmune disease (CMS/HCC) (Primary Dx); Autonomic dysfunction; Lumbosacral radiculopathy; Bilateral leg weaknessStart: 85-81-3659Iegqw abstractingKade Early MD Work Phone: noms [facility] NEURO 210Start: 06-09-2023 End: 95-67-7025Vezxox outpatient new 60 minutesMichelle Jasmine APRN-OFFICE SERVICES ASSISTANT Work Phone: [facility] Wild RoseComment on above:Irregular heart rate (Primary Dx); Essential hypertension; Autonomic dysfunction; Obstructive sleep apnea syndrome; Primary hypertensionStart: 05-26-2023 End: 94-37-4039Nbtzcs outpatient visit 40 minutesChristie Phan MD Work Phone: Integrated MedicineComment on above:Obesity, Class III, BMI >= 40 (Primary Dx); Other chronic painStart: 04-26-2023 End: 77-96-8937Ortpnr outpatient visit 40 minutesChristie Phan MD Work Phone: Integrative and Lifestyle MedicineComment on above: Obesity, Class III, BMI >= 40 (Primary Dx); FUO (fever of unknown origin); Other chronic painStart: 67-81-3642krnlboomxgHzsaeom Ruff MD Work Phone: Integrative and Lifestyle MedicineComment on above: PhentermineStart: 25-60-0930Jqtmmwkxu encounterEnma Hamm RN Hematology/OncologyComment on above:ResultsStart: 04-16-2023 End: 16-33-0892Jwhjhfc evaluation of patient and reportMa Nurse Sawyer Sand Work Phone: Hematology/OncologyComment on above:Megaloblastic anemia due to vitamin B12 deficiency (Primary Dx); Elevated sed rateStart: 03-19-2023 End: 28-54-2452Hamwesg evaluation of patient and reportMa Nurse Sawyer Sand Work Phone: Hematology/OncologyComment on above:Megaloblastic anemia due to vitamin B12 deficiency (Primary Dx); Elevated sed rateStart: 26-71-4596Dvhxz [facility] Work Phone: NeurologyComment on above:CMNStart: 03-11-2023 End: 18-43-4247Qqdkxfl evaluation of patient and reportNurse [facility] Hospitalbharath [facility] Nickie Work Phone: RheumatologyComment on above:Systemic lupus erythematosus, unspecified SLE type, unspecified organ involvement status (HCC) (Primary Dx)Start: 46-03-8600Wgwwcspic encounterLynne Ni MD Work Phone: RheumatologyComment on above:Results (Eye Exam)Start: 02-19-2023 End: 91-94-5783Elmebsg evaluation of patient and reportMa Nurse Sawyer Sand Work Phone: Hematology/OncologyComment on above:Megaloblastic anemia due to vitamin B12 deficiency (Primary Dx); Elevated sed rateStart: 02-19-2023 End: 55-77-9702Fijtou outpatient visit 15 minutesVera Najera MD Work Phone: Hematology/OncologyComment on above:Megaloblastic anemia due to vitamin B12 deficiency (Primary Dx); Elevated sed rate; Chronic fatigue and malaise; High total serum IgM; JOSE RAFAEL (obstructive sleep apnea)Start: 77-92-8080MqnscuYktpknkj Tsai MD Work Phone: [facility] CentermatologyComment on above:Refill RequestStart: 02-04-2023 End: 34-08-0890zniukvjuodIudcinzs Tsai MD Work Phone: eumatologyComment on above:Other [...] deficiency; Elevated sed rate; Bilateral wrist pain; FPC current use of systemic steroids; Steroid-induced osteoporosis; 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Start: 86-26-7829Ykflnaj encounter procedure Clinton Schroeder (Pharmacist)[facility] Specialty PharmacyComment on above:SPP Inflammatory Conditions - Treatment Referral (Benlysta); Insurance Authorization ([place] submissionpenniharika)Start: 23-16-8790Atqyovjrk encounterLynne Ni MD Work Phone: [facility] CentertologyComment on above:Appointment; Orders; Medication AuthorizationStart: 02-04-2023 End: 12-43-7412Wppoqqxptblp consultation with patientLynne Ni MD Work Phone: [facility] AT UCLAtart: 18-61-1898HgynzqSvwrfon Ruff MD Work Phone: Integrated MedicineComment on above:Refill Request Start: 13-44-3279Dybcygkol encounterLynne Ni MD Work Phone: [facility] CentertologyComment on above:ResultsStart: 01-22-2023 End: 50-55-6841Styzgdk evaluation of patient and reportMa Nurse Sawyer Marshall Work Phone: Hematology/OncologyComment on above:Megaloblastic anemia due to vitamin B12 deficiency (Primary Dx); Elevated sed rateStart: 51-15-4450VavbzcEduardo Najera MD Work Phone: Hematology/OncologyComment on above:Megaloblastic anemia due to vitamin B12 deficiency (Primary Dx); High total serum IgM; Elevated sed rateStart: 01-01-2023 End: 58-91-8484rjomcsbaghFbyzu Patadia MD Work Phone: AllergyComment on above:High total serum IgM (Primary Dx); Low serum IgG for age; Current smokerStart: 01-01-2023 End: 44-16-5328Zzhjmcsffvcv consultation with Robson Nelson MD Work Phone: [facility] MAINStart: 68-45-7555Xfvzft Christie Phan MD Work Phone: Integrated MedicineComment on above:Refill Request Start: 67-78-5499Pgedmfjjn encounterLidia Argueta RN Work Phone: Hematology/OncologyComment on above:Care Coordination (appointment)Start: 12-17-2022 End: 30-74-3617kjgwcnzqgiAadpoTom Rojas APRN.CNP Work Phone: Hematology/OncologyComment on above:Megaloblastic anemia due to vitamin B12 deficiency (Primary Dx); Chronic fatigue and malaiseStart: 12-17-2022 End: 22-74-9240Puztdubnfzpe consultation with Sonali Rojas APRN.CNP Work Phone: SANDUSKYStart: 37-26-3499Lusukenwz encounterRefrank Bettencourt RN Work Phone: Hematology/OncologyComment on above:AppointmentStart: 23-47-1619rsaxisxkvwNuvshNhan Najera MD Work Phone: Hematology/OncologyComment on above:Test resultsStart: 49-94-2190Hccoykxgf encounterEnma Hamm RNHematology/OncologyComment on above:ResultsStart: 05-87-8348sojxfygzjuAjjiptfk Tsai MD Work Phone: RheumatologyComment on above:updateStart: 11-19-2022 End: 53-87-1978Dvjscri evaluation of patient and reportMa Nurse Sawyer Marshall Work Phone: Hematology/OncologyComment on above:Megaloblastic anemia due to vitamin B12 deficiency (Primary Dx); Elevated sed rateStart: 10-22-2022 End: 23-79-9689Lhvlaim evaluation of patient and reportMa Nurse Sawyer Marshall Work Phone: Hematology/OncologyComment on above:Megaloblastic anemia due to vitamin B12 deficiency (Primary Dx); Elevated sed rateStart: 10-22-2022 End: 93-04-8657Scxiow outpatient visit 15 minutesVera Najera MD Work Phone: Hematology/OncologyComment on above:Megaloblastic anemia due to vitamin B12 deficiency (Primary Dx); Elevated sed rate; High total serum IgM; Chronic fatigue and malaise; Obstructive sleep apnea syndromeStart: 09-24-2022 End: 12-01-3921sdhsljodbzBCF RAMEY .Facility:W3Sbcjh: 09-24-2022 End: 15-42-1775Vdhnpzz evaluation of patient and reportMa Nurse Sawyer Marshall Work Phone: Hematology/OncologyComment on above:Megaloblastic anemia due to vitamin B12 deficiency (Primary Dx); Elevated sed rateStart: 09-10-2022 End: 52-20-5080exuybqmokhGL DOUGLAS HOY .Facility:D8Ijbvl: 82-70-2127Dmyipotrm encounterAngelia [facility] Home Delivery - ComplianceComment on above:Compliance AdherenceStart: 09-07-2022 End: 34-25-4455Riceqd outpatient visit 40 minutesChristie Phan MD Work Phone: Integrative and Lifestyle MedicineComment on above: Obesity, Class III, BMI >= 40 (Primary Dx); Polypharmacy; Pre-diabetesStart: 09-01-2022 End: 02-47-7712sctzdqieldSK MANUEL CHEYENNECristina .Facility:L8Kuphz: 91-58-9962Rzwvnl Lynne Ni MD Work Phone: RheumatologyComment on above:Refill RequestStart: 08-27-2022 End: 12-01-6539Yphwnqf evaluation of patient and reportMa Nurse Sawyer Marshall Work Phone: Hematology/OncologyComment on above:Megaloblastic anemia due to vitamin B12 deficiency (Primary Dx); Elevated sed rateStart: 08-27-2022 End: 62-86-5004lvjkkhaknjXrvexKathy Rojas APRN.CNP Work Phone: Hematology/OncologyComment on above:Megaloblastic anemia due to vitamin B12 deficiency (Primary Dx); Elevated sed rate; High total serum IgM; Chronic fatigue and malaise; JOSE RAFAEL (obstructive sleep apnea)Start: 08-27-2022 End: 27-22-3452Atexgqm encounter Kaley Rojas APRN.CNP Work Phone: SANDUSKYStart: 34-22-2938Zteyzyltu encounterLynne Ni MD Work Phone: RheumatologyComment on above:ResultsStart: 08-15-2022 ambulatoryLynne Ni MD Work Phone: RheumatologyComment on above:updateStart: 08-10-2022 RefillChristie Phan MD Work Phone: [facility] for Integrative MedComment on above:Refill Request Start: 07-27-2022 End: 92-60-1067ihyymtrwfeRjhfulhspEris Heck APRN.CNP Work Phone: NeurologyComment on above:JOSE RAFAEL (obstructive sleep apnea) (Primary Dx)Start: 07-27-2022 End: 68-94-6538Pqaacizsrpnq consultation with Sara Heck APRN.CNP Work Phone: [facility]ILLCRESTStart: 37-96-2035bijjvjmvimCitxszbb Tsai MD Work Phone: RheumatologyComment on above:Blood workStart: 42-34-4461Nmpnzbcfr encounterVera Najera MD Work Phone: Hematology/OncologyComment on above:Orders (Lab Orders Before Appointment)Start: 20-64-8877iachatltfgEjoswf Devnani MD Work Phone: [facility] MAINStart: 01-93-5691Fdetnon encounter procedureLawanda Miranda MD Work Phone: NeurologyComment on above:AppointmentStart: 05-20-2022 End: 86-55-3675Bshhhli evaluation of patient and reportMa Nurse Sawyer Marshall Work Phone: Hematology/OncologyComment on above:Megaloblastic anemia due to vitamin B12 deficiency (Primary Dx); Elevated sed rateStart: 05-20-2022 End: 54-27-2529cwdbogwlnzAzsgr Abhyankar MD Work Phone: Hematology/OncologyComment on above:High total serum IgM (Primary Dx); Elevated sed rate; Somnolence, daytime; JOSE RAFAEL (obstructive sleep apnea)Start: 05-20-2022 End: 49-41-2690Eoktvzm encounter procedureVera Najera MD Work Phone: SANDUSKYStart: 71-37-7659xgxgzimxprYdmskt Devnani MD Work Phone: NeurologyComment on above:CpapStart: 05-05-2022 Telephone encounterJami Rivera PSSHome Respiratory TherapyComment on above:PAP Therapy Follow UpPAP Rx Faxed (YUNIOR Seo)Start: 41-97-4645Qhfkwcxtm encounterNy Lance MD Work Phone: Pediatric GenomicsComment on above:Future Appointment (Scheduling questions/concerns)Start: 26-68-4621Pkrfebpxm encounterAlyssa Licea Research CoordinatorGenetic HealthcareComment on above:Appointment; Physician Recruiter - OtherStart: 03-31-2022 End: 60-33-8933yxylrkqlyeTPPrashanth FERRIS .Facility:U2Rktfi: 41-77-0381Wsexpu Christie Phan MD Work Phone: [facility] Integrative MedComment on above:Refill Request Start: 32-88-8267vdsihmougqBmgyg Patadia MD Work Phone: AllergyComment on above:PneumovaxStart: 34-97-4857B- mail encounter from Dana Nelson MD Work Phone: AMHERSTStart: 36-35-2240Qjntzskdd encounterMisty Nelson MD Work Phone: AllergyComment on above:PneumovaxStart: 03-21-2022 End: 56-13-4579qbsnctkexcYO EL ROSSI .Facility:K7Senji: 03-18-2022 End: 75-46-8143jqucjtnqewLnbrk Abhyankar MD Work Phone: Hematology/OncologyComment on above:Megaloblastic anemia due to vitamin B12 deficiency (Primary Dx); High total serum CgBU1sAfrjl: 52-89-0881A-mail encounter from John Phan MD Work Phone: [facility]USStart: 03-18-2022 End: 97-25-4867Cjlmcxx encounter procedureVera Najera MD Work Phone: SANDUSKYStart: 03-12-2022 End: 75-38-4471nqhvorbhcuMDPrashanth FERRIS .Facility:H7Gvmtg: 03-10-2022 End: 07-75-9888gllhgnkjagPagsetk Lehman DO Work Phone: Infectious DiseaseComment on above:resultsRaised level of immunoglobulins (Primary Dx); Wound healing, delayed; Current smokerStart: 72-22-7641B-mail encounter from Jean Victoria DO Work Phone: [facility] MAINStart: 03-10-2022 End: 15-59-5919Yxmqoblesflr consultation with Robson Nelson MD Work Phone: AMHERSTStart: 03-09-2022 End: 66-62-9260xwbbrgdxssBMZJHG CRAMERFacility:O0Qdwtc: 03-09-2022 End: 44-36-4959Hmmqdn consultation new/estab patient 80 Dorothea Phan MD Work Phone: [facility] Integrative MedComment on above:Obesity, Class II, BMI 35-39.9 (Primary Dx); Somnolence, daytime; Chronic fatigue and malaise; Obesity, unspecified classification, unspecified obesity type, unspecified whether serious comorbidity present; Snoring; POTS (postural orthostatic tachycardia syndrome); Elevated glucose; Raised level of immunoglobulinsStart: 81-92-8590Dnyhnppsd encounterBeminnie Victoria DO Work Phone: Infectious DiseaseComment on above:Opened In Error Start: 58-03-5172ljqvvdyiddEbqeokrd Tsai MD Work Phone: RheumatologyComment on above:resultsStart: 03-05-2022 Telephone encounterLynne Ni MD Work Phone: RheumatologyComment on above:ResultsStart: 03-04-2022 End: 98-96-6827dbytdflobkGarfdNhan Najera MD Work Phone: Hematology/OncologyComment on above:High total serum IgM (Primary Dx); Megaloblastic anemia due to vitamin B12 deficiency; Somnolence, daytime; Snoring; Chronic fatigue and malaise; Obesity, unspecified classification, unspecified obesity type, unspecified whether serious comorbidity presentStart: 03-04-2022 End: 53-79-1922Jtqmeur encounter Jorge Najera MD Work Phone: SANDUSKYStart: 28-02-8445Zkihv abstractReji Najera MD Work Phone: Hematology/OncologyStart: 81-00-6499Pivaweouk encounterMilena Gandara MD Work Phone: Infectious DiseaseComment on above:Opened In Error Start: 02-24-2022 End: 18-91-5996aifgqllfdeWrvqdjn Lehman DO Work Phone: Infectious DiseaseComment on above:Swelling of lymph nodes (Primary Dx); Other systemic lupus erythematosus with other organ involvement (HCC); On prednisone therapy; Hair loss; Bilateral sacroiliitis (HCC); Long-term use of PlaquenilStart: 02-24-2022 End: 81-58-7829Kleqsgqswdjd consultation with Mich Victoria DO Work Phone: [facility] MAINStart: 02-14-2022 End: 83-05-9781usksuhzmtqJQ MANUEL FERRIS .Facility:X7Aomxp: 11-26-2021 End: 24-25-8747aziglxfwynTodltlh Blank Other [employer] Other Start: 54-29-3389Qrzqkw outpatient visit 25 minutes Mirela Odom Infectious DiseaseStart: 11-17-2021 End: 80-31-3524xkfokvkptjYGPrashanth BAERFacility:L1Hplfr: 10-24-2021 End: 73-70-8895Eedzwyf encounter procedureLynne Ni MD Work Phone: RheumatologyComment [...] history of Crohn's disease; FibromyalgiaStart: 10-15-2021 End: 35-93-6404qchuslzwmoPeyemnh Blank Other [employer] Other Start: 52-08-9190Jpihvm outpatient visit 25 minutes Mirela BaerJOHN Infectious DiseaseStart: 10-03-2021 End: 44-39-1004ykjzrvutdoZL MIRELA BAERFacility:F2Cybhk: 09-18-2021 End: 71-77-0028bqvffolmimYnktvme Blank Other [facility] [employer] Other Start: 43-54-9621Iiwdwytmz encounterMichael BlankFPG Infectious DiseaseStart: 09-11-2021 End: 54-63-0880skfjupdcfqXqpyvtl Blank Other [facility] [employer] Other Start: 75-79-2372Uwqsxh outpatient new 45 minutes Mirela BaerJOHN Infectious DiseaseStart: 10-07-2020 End: 82-91-5068iqryixwmqrQJSIKKettering Health Greene Memorialtart: 10-07-2020 End: 97-71-7046Rlqvqtammq hospital visit by physicianStv Dictaphone Transcriber Rm ASTVZ Cath LabComment on above:ArrivedStart: 09-14-2018 End: 29-96-9849Lonrfpq encounter procedureROBNASREEN Batista [facility] Procedures DateProcedureProcedure DetailPerforming ClinicianStart: 39-13-3746Dblez culture Gay De La Torre FILM COATER-C Work Phone: [phone]-art: 09-04-0701Uncsl cultureGay De La Torre FILM COATER-C Work Phone: [phone]-art: 46-13-6563EZVIXJH Berlin Blum MD Work Phone: Start: 46-47-3673OVHVSPVYF Berlin Blum MD Work Phone: Start: 49-36-3398Dencicc of pilonidal cystGay De La Torre FILM COATER-C Work Phone: [phone]-art: 53-08-6855Jlyqgut microbial cultureGay De La Torre FILM COATER-C Work Phone: [phone]-art: 37-39-2085Urvs stain microscopyGay De La Torre FILM COATER-C Work Phone: Start: 93-82-0069Wvpjc cultureGay De La Torre FILM COATER-C Work Phone: Start: 48-12-1292BT Nerve Radio Frequency (Bilateral) Gay De La Torre FILM COATER-C Work Phone: Start: 16-34-2702Nbnyy count complete automated Lynne Ni MD Work Phone: Start: 87-51-2296Lqurs count complete automated Lynne Ni MD Work Phone: Start: 70-32-1582L-reactive proteinLynne Ni MD Work Phone: Start: 99-43-2992Zejby of gammaglobulin iga igd igg igm eachJaimee Deven VOCATIONAL EXAMINER.OFFICE SERVICES ASSISTANT Work Phone: Start: 46-41-4540Ig soft tissue head & neck real time imge docJinny Barfield MD Work Phone: Start: 46-56-6742Msbscsldd of local anesthetic into sacroiliac jointGay De La Torre FILM COATER-C Work Phone: Start: 47-29-0174Rbnux count complete auto&auto difrntl wbcJaimee Deven VOCATIONAL EXAMINER.OFFICE SERVICES ASSISTANT Work Phone: Start: 72-32-2161MTY,APTIMA HPV,AGE GDLNOly WARREN Work Phone: Start: 57-10-8395Vewiacwcvtj observation [Identifier] in Cervix by Cyto stainBernabe English MD Work Phone: Start: 09-00-8959Wwhve count complete auto&auto difrntl wbcLeonardok Marquis LEE Work Phone: Start: 54-26-5090YgbsokuenzgTbkjt Petitti MD Work Phone: Start: 26-29-5879JBG CBC WITH AUTO DIFFOly WARREN Work Phone: Start: 89-41-0216ZOC THYROID STIM HORMONEOly WARREN Work Phone: Start: 69-58-3857ZRZ THYROXINE (T4) FREEOly WARREN Work Phone: Start: 57-83-2030VLO APTTAjesenia Temo WARREN Work Phone: Start: 34-27-6879VGY HEMOGLOBIN A1COly Temo WARREN Work Phone: Start: 46-05-1280ARLMXV PROTHROMBIN TIME INR W/O COUM Oly WARREN Work Phone: Start: 30-95-6693GQX PREG QUANT HCGOly Temo WARREN Work Phone: Start: 45-62-3146JyaogayeawxZtloeu Ibrahim MD Work Phone: Start: 03-23-2024 End: 02-60-5462Fgszm dip stick/tablet rgnt non-auto w/o micrscpAjesenia WARREN Work Phone: Start: 43-79-3071Hahjwaojh of local anesthetic into sacroiliac jointNP-C Gay De La Torre Work Phone: Start: 19-95-3174Fyw routine ecg w/least 12 lds w/i&r Lois Holm MD Work Phone: Start: 67-23-4389Ckp routine ecg w/least 12 lds w/i&r Michelle Jasmnie VOCATIONAL EXAMINER-OFFICE SERVICES ASSISTANT Work Phone: Start: 08-74-2018Epwqqapvlga observation [Identifier] in Cervix by Cyto stainCorey Skip DO Work Phone: Start: 24-53-3759Hvii cerv/vag auto thin layer prep mnl screenCorey Skip DO Work Phone: Start: 10-07-2020 End: 55-76-7199Jpqxczl catheterizationJonas Black MD Work Phone: Start: 55-30-2242Fqmoqvnl [Moles/volume] in Serum or PlasmaJonas Black MD Work Phone: Start: 42-00-2127PBZXEJVRZK W/GFR POINT OF CAREJonas Black MD Work Phone: Start: 10-07-2020 End: 33-01-9643Pdfx bld gluc mntr dev cleared fda spec home useJonas Black MD Work Phone: Start: 79-33-6932Xxnoxbfvb [Moles/volume] in Serum or PlasmaJonas Black MD Work Phone: Start: 73-23-0693Ixrbej [Moles/volume] in Serum or PlasmaJonas Black MD Work Phone: Start: 86-93-0894Mcylf test visual color cmprsn methsAfabricio Black MD Work Phone: Start: 03-18-5446Ousmh foot complete minimum 3 views VICTOR MANUEL GUZMAN Plan of Treatment DateCare ActivityDetailAuthorStart: 24-37-6261Uiyabeytr for malignant neoplasm of cervixNOMS HealthcareStart: 87-75-1923Fulgbldsr for malignant neoplasm of cervixNOMS HealthcareStart: 07-11-5247Elaovjoha for malignant neoplasm of cervix Pap SmearCleveland Clinic SystemStart: 07-26-2025 End: 57-52-8610Zsepxot encounter vdhbpfsut09/05/2026 11:00 AM EST Office Visit [place] [address] [phone] Lois Holm MD [address] [place] [address] [address] [place] [address] [facility]Start: 07-25-2025 End: 47-40-3985Lvcfsjx encounter procedureNOMS SWS DERMStart: 04-20-2025 End: 723652-fstuoptvjxwvvc D3 [Mass/volume] in Serum or PlasmaVITAMIN D 25 HYDROXY Lab Routine Vitamin D deficiency Expected: 04/20/2025 (Approximate), Expires: 08/28/2026C[facility] ClinicComment on above:Expected: 04/20/2025 (Approximate), Expires: 01/18/2026Start: 04-20-2025 End: 01-18-2026 reactive protein [Mass/volume] in Serum or PlasmaC-REACTIVE PROTEIN Lab Routine Elevated C-reactive protein (CRP) Elevated sed rate Expected: 04/20/2025 (Approximate), Expires: 01/18/2026leveland ClinicComment on above:Expected: 04/20/2025 (Approximate), Expires: 01/18/2026Start: 04-20-2025 End: 31-02-4352KUS panel - Blood by Automated countCOMPLETE BLOOD COUNT Lab Routine Anemia of chronic disease Expected: 04/20/2025 (Approximate), Expires: 01/18/2026leveland ClinicComment on above:Expected: 04/20/2025 (Approximate), Expires: 01/18/2026Start: 04-20-2025 End: 12-78-7535Qtvkrgurzzqrd metabolic 2000 panel - Serum or PlasmaCOMPREHENSIVE METABOLIC PANEL Lab Routine Elevated LFTs Expected: 04/20/2025 (Approximate), Expires: 01/18/2026[facility] Work Phone: Comment on above:Expected: 04/20/2025 (Approximate), Expires: 01/18/2026Start: 04-20-2025 End: 36-82-8929Znyadesrfyy sedimentation rateSEDIMENTATION RATE, WESTERGREN Lab Routine Elevated C-reactive protein (CRP) Elevated sed rate Expected: 04/20/2025 (Approximate), Expires: 01/18/2026leveland ClinicComment on above:Expected: 04/20/2025 (Approximate), Expires: 01/18/2026Start: 32-23-2337Kyrbcycbk for malignant neoplasm of breastMammogramNOKansas City VA Medical CenterStart: 62-13-2417Rkgqo BMI ScreeningAdult BMI ScreeningCleveland Clinic SystemStart: 51-92-8627Nhoptmtfm for malignant neoplasm of breastCleveland Clinic Fairview HospitalStart: 05-56-0154Lrefrim ScreeningTobacco ScreeningProOur Lady Of Mercy Hospital SystemStart: 03-23-2025 End: 32-54-5116Jrtpvud encounter oapjxaofb54/31/2025 11:30 AM EDT Office Visit [facility] [address] [facility] [address] [place] [address] Terence Blum MD [address] [facility] [address] [place] [address] [facility] AssociatesStart: 03-19-2025 End: 65-37-1226Eixisac encounter procedureNOMS ENT NORWALKStart: 03-17-2025 Diabetes mellitus screeningDiabetes ScreeningMercy Health [facility] Start: 03-14-2025 End: 91-20-8350Vgvqvnmii culture and sensitivityMercy Health St. Elizabeth [facility] SystemComment on above:Expected: 03/14/2025, Expires: 03/14/2026Start: 97-47-9107Wmtmq culture [facility] Centertart: 60-43-6159Dthrqamb identified in Urine by CultureUrine CultureOhioHealth Grant Medical Centertart: 33-44-3778Ljmps cultureOhioHealth Grant Medical Centertart: 53-16-7642Jnvxdkyd identified in Urine by CultureUrine [facility] Hospitaltart: 03-02-2025 End: 78-76-1619JanqennhrOhioHealth Grant Medical Centertart: 79-86-6518Dalmfhj Culture Aerobic [facility] Hospitaltart: 15-38-1334Pqjkzkghx CultureAnaeroc [facility] Hospitaltart: 03-02-2025 Anaerobic microbial cultureAnaeroCincinnati Children's Hospital Medical [facility] Start: 90-44-3942Jjkacdhvzen observation [Identifier] in Unspecified specimen by Gram stainOhioHealth Grant Medical Centertart: 67-01-2558Xuayq culture [facility] Centertart: 63-56-6379Srbtpnqn identified in Urine by CultureUrine [facility] Hospitaltart: 02-21-2025 End: 60-49-5137odyjxkcohtVwicgawqlq/OncologyComment on above:3 mo F/U-IVIGStart: 02-21-2025 End: 33-64-6995Utsboov encounter zxtebmfoj29/01/2025 8:45 AM EDT Office Visit [facility] [address] [place] [address] 3 mo F/U-IVIGNortKarmanos Cancer Center [facility] Comment on above:3 mo F/U-IVIGStart: 02-14-2025 End: 54-25-6733Gfnfcur encounter rseofwggq66/24/2025 3:20 PM EDT Office Visit [facility] [address] [place] [id number] Bernabe English MD [address] [place] [address] ArrivedNOMS Seo DermatologyComment on above:ArrivedStart: 02-08-2025 End: 30-45-6894bybdwbfght76/18/2025 2:00 PM EDT Infusion Center Hematology/Oncology [address] [place] [address] BENLYSTA -Hematology/OncologyComment on above:BENLYSTA -Start: 68-75-0092KsmwdhscfOhioHealth Grant Medical Centertart: 01-24-2025 End: 00-57-7030uoipbmtiufKrwgjvsyuc/OncologyComment on above:IVIG q4 weeks IVIG(5hours) q4 weeksStart: 61-72-0344EHPTA-19 VACCINE ( season) COVID-19 VACCINE ( season)[facility] Hospitaltart: 01-22-2025 Influenza vaccinationMissouri Delta Medical CenterStart: 01-06-2025 End: 919823-nllumjxzlqhtjj D3 [Mass/volume] in Serum or PlasmaVITAMIN D 25 HYDROXY Lab Routine Vitamin D deficiency Expected: 01/06/2025 (Approximate), Expires: 10/06/2025leveland ClinicComment on above:Expected: 01/06/2025 (Approximate), Expires: 10/06/2025Start: 01-06-2025 End: 42-17-4939LSMDL TB SCREENBLOOD TB SCREEN Lab Routine Screening-pulmonary TB Expected: 01/06/2025 (Approximate), Expires: 10/06/2025leveland ClinicComment on above:Expected: 01/06/2025 (Approximate), Expires: 10/06/2025Start: 01-06-2025 End: 10-06-2025 reactive protein [Mass/volume] in Serum or PlasmaC-REACTIVE PROTEIN Lab Routine Elevated sed rate Elevated C-reactive protein (CRP) Expected: 01/06/2025 (Approximate), Expires: 10/06/2025[facility] ClinicComment on above:Expected: 01/06/2025 (Approximate), Expires: 10/06/2025Start: 01-06-2025 End: 99-18-7683OWP panel - Blood by Automated countCOMPLETE BLOOD COUNT Lab Routine Anemia of chronic disease Expected: 01/06/2025 (Approximate), Expires: 10/06/2025[facility] ClinicComment on above:Expected: 01/06/2025 (Approximate), Expires: 10/06/2025Start: 01-06-2025 End: 76-83-6452Txlypvn hepatitis differentiation between hepatitis B and C virus panel - Serum or PlasmaHEP REMOTE PANEL BL Lab Routine Elevated LFTs Expected: 01/06/2025 (Approximate), Expires: 10/06/2025[facility] ClinicComment on above: Expected: 01/06/2025 (Approximate), Expires: 10/06/2025Start: 01-06-2025 End: 38-49-0696Qcvtlohbq (Vitamin B12) [Mass/volume] in Serum or PlasmaVITAMIN B12 Lab Routine Vitamin B12 deficiency Expected: 01/06/2025 (Approximate), Expires: 10/06/2025[facility] ClinicComment on above:Expected: 01/06/2025 (Approximate), Expires: 10/06/2025Start: 01-06-2025 End: 50-35-0441Opfoycueueyrr metabolic 2000 panel - Serum or PlasmaCOMPREHENSIVE METABOLIC PANEL Lab Routine Elevated LFTs Expected: 01/06/2025 (Approximate), Expires: 10/06/2025[facility] Work Phone: Comment on above:Expected: 01/06/2025 (Approximate), Expires: 10/06/2025Start: 01-06-2025 End: 38-03-3405Xciqlblyzpx sedimentation rateSEDIMENTATION RATE, WESTERGREN Lab Routine Elevated sed rate Elevated C-reactive protein (CRP) Expected: 01/06/2025 (Approximate), Expires: 10/06/2025[facility] ClinicComment on above:Expected: 01/06/2025 (Approximate), Expires: 10/06/2025Start: 12-27-2024 End: 49-36-3968vwzadlnloc95/06/2025 9:00 AM EDT Infusion Center Hematology/Oncology [address] [place] [address] [place] [address] IVIG q4 weeksHematology/OncologyComment on above:IVIG q4 weeksStart: 12-14-2024 End: 31-53-2232qsdrojvdsd91/24/2025 2:00 PM EDT Infusion Center Hematology/Oncology [address] [place] [address] [place] [address] BENLYSTA -Hematology/OncologyComment on above:BENLYSTA -Start: 11-29-2024 End: 24-86-8120nsvmxndlpgBomcnakbas/OncologyComment on above:3 mo F/U-IVIG(slow infusion per pt request/B12 +/-IV iron labStart: 11-29-2024 End: 65-25-5285Uqeegit encounter oxtzuwjbh56/09/2025 8:45 AM EDT Office Visit [facility] Laboratory [address] [place], [place] [address] [address] 3 mo F/U-IVIG(slow infusion per pt request/B12 +/-IV iron lab [facility] LaboratoryComment on above:3 mo F/U- IVIG(slow infusion per pt request/B12 +/-IV iron labStart: 11-20-2024 End: 33-23-2635QXA W Auto Differential panel - BloodCOMPLETE BLOOD COUNT AND DIFFERENTIAL Lab Routine Hypogammaglobulinemia (HCC) Expected: 11/20/2024, Expires: 02/19/2025[facility] Work Phone: Comment on above:Expected: 11/20/2024, Expires: 02/19/2025Start: 11-20-2024 End: 71-96-1976Xlayuqecf (Vitamin B12) [Mass/volume] in Serum or PlasmaVITAMIN B12 Lab Routine Hypogammaglobulinemia (HCC) Expected: 11/20/2024, Expires: 02/19/2025[facility] ClinicComment on above:Expected: 11/20/2024, Expires: 02/19/2025Start: 11-20-2024 End: 26-83-2111Msbvsfwqbrepq metabolic 2000 panel - Serum or PlasmaCOMPREHENSIVE METABOLIC PANEL Lab Routine Hypogammaglobulinemia (HCC) Expected: 11/20/2024, Expires: 02/19/2025[facility] ClinicComment on above:Expected: 11/20/2024, Expires: 02/19/2025Start: 11-20-2024 End: 99-10-9612Sqzfwvfa [Mass/volume] in Serum or PlasmaFERRITIN Lab Routine Hypogammaglobulinemia (HCC) Expected: 11/20/2024, Expires: 02/19/2025[facility] ClinicComment on above:Expected: 11/20/2024, Expires: 02/19/2025Start: 11-20-2024 End: 69-82-3417Srvbtv [Mass/volume] in Serum or PlasmaFOLATE, SERUM Lab Routine Hypogammaglobulinemia (HCC) Expected: 11/20/2024, Expires: 02/19/2025[facility] ClinicComment on above:Expected: 11/20/2024, Expires: 02/19/2025Start: 11-20-2024 End: 86-16-5139AILMQNBBHRGXOFD,IGG,IGA,IGMIMMUNOGLOBULINS,IGG,IGA,IGM Lab Routine Hypogammaglobulinemia (HCC) Expected: 11/20/2024, Expires: 02/19/2025 [facility] HospitalComment on above:Expected: 11/20/2024, Expires: 02/19/2025Start: 67-20-1848Xlxotpugr vaccinationInfluenza Vaccine (#1)[facility]OMS HealthcareComment on above:Postponed from 01/23/2024 (Patient Refused)Start: 11-20-2024 End: 37-43-0086Cles and Iron binding capacity panel - Serum or PlasmaIRON AND TIBC Lab Routine Hypogammaglobulinemia (HCC) Expected: 11/20/2024, Expires: 02/19/2025[facility] ClinicComment on above:Expected: 11/20/2024, Expires: 02/19/2025Start: 11-16-2024 End: 68-63-4377qoklqmtqzg30/26/2025 2:00 PM EDT Infusion Center Hematology/Oncology [address] [place] [address] BENLYSTA -Hematology/OncologyComment on above:BENLYSTA -Start: 11-01-2024 End: 80-52-8999kdhoymocav34/11/2025 9:00 AM EDT Infusion Center Hematology/Oncology [address] [place] [address] [place] [address] IVIG q 4 weeks with B 12 inj and labHematology/OncologyComment on above:IVIG q 4 weeks with B 12 inj and labStart: 10-31-2024 End: 96-09-6609sgtskfubok47/10/2025 9:00 AM EDT Infusion Center Hematology/Oncology [address] [place] [address] [place] [address] IVIG q 4 weeks with B 12 inj and labHematology/OncologyComment on above:IVIG q 4 weeks with B 12 inj and labStart: 10-19-2024 End: 05-85-3164rfgxukglqf23/29/2025 2:00 PM EDT Infusion Center Hematology/Oncology [address] [place] [address] [place] [address] BENLYSTA - IVIG AND BENLYSTA AT LEAST 1 DAY APART FOR FUTURE APPTSHematology/Oncology Comment on above:BENLYSTA - IVIG AND BENLYSTA AT LEAST 1 DAY APART FOR FUTURE APPTSStart: 10-18-2024 End: 85-08-0724Rnetrjanc Zhrzrxig39/28/2025 10:00 AM EDT Specialty Pharmacy [facility] [address] [place], [place] [address]-[address]-[address] [address] Pharmacist, [facility]ty[facility] [address] [place] [address] [address] [place] [address] REFILL- Benlysta- PAx 02/11/25- - mult call attemptsCCF Specialty PharmacyComment on above:REFILL- Benlysta- PAx 02/11/25- - mult call attemptsStart: 10-07-2024 End: 04-29-5190Cdtier-up yftyliyuh48/17/2025 8:00 AM EDT [facility] Rheumatology [address] [place] [address] Lynne Ni MD [address] [place] [address] follow up visitRheumatologyComment on above:follow up visit Start: 10-06-2024 End: 939352-rlspgumorkquis D3 [Mass/volume] in Serum or PlasmaVITAMIN D 25 HYDROXY Lab Routine Vitamin D deficiency Expected: 10/06/2024 (Approximate), Expires: 07/09/2025[facility] ClinicComment on above:Expected: 10/06/2024 (Approximate), Expires: 07/09/2025Start: 10-06-2024 End: 07-09-2025 reactive protein [Mass/volume] in Serum or PlasmaC-REACTIVE PROTEIN Lab Routine Elevated sed rate Elevated C-reactive protein (CRP) Expected: 10/06/2024 (Approximate), Expires: 07/09/2025[facility] ClinicComment on above:Expected: 10/06/2024 (Approximate), Expires: 07/09/2025Start: 10-06-2024 End: 29-92-6955PEX panel - Blood by Automated countCOMPLETE BLOOD COUNT Lab Routine Anemia of chronic disease Expected: 10/06/2024 (Approximate), Expires: 07/09/2025[facility] ClinicComment on above:Expected: 10/06/2024 (Approximate), Expires: 07/09/2025Start: 10-06-2024 End: 23-40-2513Cytiglqclrqdl metabolic 2000 panel - Serum or PlasmaCOMPREHENSIVE METABOLIC PANEL Lab Routine Elevated LFTs Expected: 10/06/2024 (Approximate), Expires: 07/09/2025[facility] Work Phone: Comment on above:Expected: 10/06/2024 (Approximate), Expires: 07/09/2025Start: 10-06-2024 End: 97-37-2716Gguofrryiep sedimentation rateSEDIMENTATION RATE, WESTERGREN Lab Routine Elevated sed rate Elevated C-reactive protein (CRP) Expected: 10/06/2024 (Approximate), Expires: 07/09/2025[facility] ClinicComment on above:Expected: 10/06/2024 (Approximate), Expires: 07/09/2025Start: 2024 End: 47-99-7504vvhgurihpsMgmzjsknmt/OncologyComment on above:IVIG q 4 weeks with B 12 inj and labBENLYSTA - IVIG AND BENLYSTA AT LEAST 1 DAY APART FOR FUTURE APPTSREFILL- Benlysta- PAx 02/11/25- - LVM 09/20, 09/25, 09/27Start: 10-02-2024 End: 54-12-0413yaygnxkomz31/12/2025 9:00 AM EDT Infusion Center Hematology/Oncology [address] [place] [address] [address] [place] [id number] IVIG q 4 weeks with B 12 inj and labHematology/OncologyComment on above:IVIG q 4 weeks with B 12 inj and labStart: 09-28-2024 End: 94-21-8558Wbkeuedtf Kxwikfxh27/08/2025 10:00 AM EDT Specialty Pharmacy [facility] [address] [place], [place] [id number] Pharmacist, [facility]ty[facility] [address] [place] [address] [address] [place] [address] 22 REFILL- Benlysta- PAx 02/11/25- - LVM 09/20, 5CCF Specialty PharmacyComment on above:REFILL- Benlysta- PAx 02/11/25- - LVM 09/20, tart: 09-25-2024 End: 94-05-3285Fomxmaczd Bmdtskcl94/05/2025 10:15 AM EDT Specialty Pharmacy [facility] [address] [place] [address] Pharmacist, [facility] [address] [place] [address] DR DARNELL, [facility] 22 REFILL- Benlysta- PAx 02/11/25- - LVM 09/20CCF Specialty PharmacyComment on above:REFILL- Benlysta- PAx 02/11/25- - LVM tart: 09-20-2024 End: 71-41-7458Onfkfywga Qztjzjoj38/30/2025 10:15 AM EDT Specialty Pharmacy [facility] [address] [place], [place] [address], [place] [address] Pharmacist, [facility] [address] [place] [address] [address] [place] [address] 22 REFILL- Benlysta- PAx 02/11/25- - pend new RxCC Specialty PharmacyComment on above:REFILL- Benlysta- PAx 02/11/25 - pend new RxStart: 09-19-2024 End: 53-33-2787Vfjopco encounter procedureGMIT MAIN WALKERComment on above:hEDS with concerns and wants CTD evaluationStart: 09-18-2024 End: 27-19-0900Sgizpniqd PharmacyCCF Specialty PharmacyComment on above:REFILL- Benlysta- PAx 02/11/25- BENLYSTAStart: 09-06-2024 End: 21-58-9537toojsvugvh08/16/2025 9:30 AM EDT Infusion Center Hematology/Oncology [address] [place] [address] [place] [address] 3 mo F/U-IVIG(slow infusion per pt request/B12 +/-IV ironHematology/OncologyComment on above:3 mo F/U-IVIG(slow infusion per pt request/B12 +/-IV ironStart: 09-06-2024 End: 62-38-4325Azynpk-up encounterHematology/OncologyComment on above:3 month follow up IVIG for hypogammaglobulinemia + j70Fnqit: 09-06-2024 End: 81-98-7945Jbdpmdt encounter zwwkolxta65/16/2025 8:45 AM EDT Office Visit [facility] Laboratory [address] [place] [address] 3 month follow up IVIG for hypogammaglobulinemia + a64Otzsx [facility] LaboratoryComment on above:3 month follow up IVIG for hypogammaglobulinemia + r53Vpaqg: 09-05-2024 End: 23-90-2021Pgilpf-up encounterHematology/OncologyComment on above:3 month follow up IVIG for hypogammaglobulinemia + r73Jfycc: 09-05-2024 End: 52-64-6363Baswoqf encounter fcbiodnjr19/15/2025 8:45 AM EDT Office Visit [facility] [address] [facility] [place] [place] [address] 3 month follow up IVIG for hypogammaglobulinemia + y62Eudxf [facility] LaboratoryComment on above:3 month follow up IVIG for hypogammaglobulinemia + y11Rolfj: 09-04-2024 End: 53-78-9421Pqwiohg encounter djzjghruj64/14/2025 3:20 PM EDT [facility] [address] [facility] [address] [place] [address] Gordo Barfield MD [address] [facility] [address] [place] [address] ArrivedNOMS SELVIN HARTomment on above:ArrivedStart: 08-28-2024 End: 09-87-9222NHZ W Auto Differential panel - BloodCOMPLETE BLOOD COUNT AND DIFFERENTIAL Lab Routine Vitamin B12 deficiency Other iron deficiency anemia Hypogammaglobulinemia (HCC) Expected: 08/28/2024, Expires: 11/27/2024[facility] Work Phone: Comment on above:Expected: 08/28/2024, Expires: 11/27/2024Start: 08-28-2024 End: 42-17-7122Ntggzjish (Vitamin B12) [Mass/volume] in Serum or PlasmaVITAMIN B12 Lab Routine Vitamin B12 deficiency Other iron deficiency anemia Hypogammaglobulinemia (HCC) Expected: 08/28/2024, Expires: 11/27/2024[facility] ClinicComment on above:Expected: 08/28/2024, Expires: 11/27/2024Start: 08-28-2024 End: 31-23-0598Yldnfshrhzhsu metabolic 2000 panel - Serum or PlasmaCOMPREHENSIVE METABOLIC PANEL Lab Routine Vitamin B12 deficiency Other iron deficiency anemia Hypogammaglobulinemia (HCC) Expected: 08/28/2024, Expires: 11/27/2024[facility] ClinicComment on above:Expected: 08/28/2024, Expires: 11/27/2024Start: 08-28-2024 End: 22-68-0620Pydvwqqi [Mass/volume] in Serum or PlasmaFERRITIN Lab Routine Vitamin B12 deficiency Other iron deficiency anemia Hypogammaglobulinemia (HCC) Expected: 08/28/2024, Expires: 11/27/2024[facility] ClinicComment on above: Expected: 08/28/2024, Expires: 11/27/2024Start: 08-28-2024 End: 66-32-1208Rqlidq [Mass/volume] in Serum or PlasmaFOLATE, SERUM Lab Routine Vitamin B12 deficiency Other iron deficiency anemia Hypogammaglobulinemia(HCC) Expected: 08/28/2024, Expires: 11/27/2024[facility] ClinicComment on above: Expected: 08/28/2024, Expires: 11/27/2024Start: 08-28-2024 End: 94-36-3549SaH [Mass/volume] in Serum or PlasmaIMMUNOGLOBULIN G Lab Routine Vitamin B12 deficiency Other iron deficiency anemia Hypogammaglobulinemia (HCC) Expected: 08/28/2024, Expires: 11/27/2024[facility] ClinicComment on above: Expected: 08/28/2024, Expires: 11/27/2024Start: 08-28-2024 End: 72-61-2189Nnch and Iron binding capacity panel - Serum or PlasmaIRON AND TIBC Lab Routine Vitamin B12 deficiency Other iron deficiency anemia Hypogammaglobulinemia(HCC) Expected: 08/28/2024, Expires: 11/27/2024[facility] ClinicComment on above:Expected: 08/28/2024, Expires: 11/27/2024Start: 08-22-2024 End: 95-47-8771Ngkcmit encounter hvbjxpxix11/01/2025 1:30 PM EDT Office Visit [facility] [address] [place] [phone] Raj Kitchen MD [address] [place] [address] [facility] ENDOCRINOLOGYStart: 08-22-2024 End: 55-60-6391Gyysffpqn Pjgzizny72/01/2025 10:15 AM EDT Specialty Pharmacy [facility] [address] [place] [address] Pharmacist, Specialty[facility] [address] [place] [address] [address] [place] [address] 22 REFILL- Benlysta- PAx 02/11/25 lv 08/17CC Specialty PharmacyComment on above:REFILL- Benlysta- PAx 02/11/25 lvm 08/17Start: 08-17-2024 End: 93-82-5638Vsxtrxtxs Solkztop10/27/2025 10:00 AM EDT Specialty Pharmacy [facility] [address] [place] [address] Pharmacist, Specialty[facility] [address] [place] [address] [place], [place] [address] REFILL- Benlysta- PAx 02/11/25- CC Specialty PharmacyComment on above:REFILL- Benlysta- PAx 02/11/25- Start: 08-15-2024 End: 40-33-0472Dydlzcn encounter /25/2025 10:20 AM EDT Office Visit [facility] [address] [place] [address] Gordo Barfield MD [address] [place] [address] [facility] CI ENTStart: 08-08-2024 End: 86-92-5508lzxlntvsis34/18/2025 9:30 AM EDT Infusion Center Hematology/Oncology [address] [place] [address] [place] [address] IVIG for hypogammaglobulinemia + i48Iudbdxaezs/OncologyComment on above:IVIG for hypogammaglobulinemia + q80Rsipp: 08-01-2024 End: 94-65-9051Pakbocl encounter baqymbhjr91/11/2025 10:30 AM EDT Office Visit [facility] [address] [place] [address] Bernabe English MD [address] [place] [address] [facility] SWS DERMStart: 07-25-2024 End: 37-01-5569Bevymqqna PharmacyCCF Specialty PharmacyComment on above:REFILL- Benlysta- PAx 02/11/25- daysArrivedStart: 07-20-2024 End: 09-99-9369jnudthivoj27/27/2025 11:30 AM EST [facility] Infectious Disease [address] [place] [phone] Alhaji Victoria DO [address] [place] [address] Positive blood cultures [R78.81]Infectious DiseaseComment on above:Positive blood cultures [R78.81]Start: 07-20-2024 End: 66-98-2991Ghfiqag encounter dzhhmyebg48/27/2025 11:30 AM EST Office Visit Infectious Disease [address] [place] [phone] Alhaji Victoria DO [address] [place] [address] Positive blood cultures [R78.81]Infectious DiseaseComment on above: Positive blood cultures [R78.81]Start: 49-49-8641KtzzsswxpOhioHealth Grant Medical Centertart: 07-13-2024 End: 14-03-0902Nuhchyf encounter krgkjruel02/20/2025 9:20 AM EST Office Visit [place] [address] [place] [phone] Lois Holm MD [address] [facility] [address] [place] [address] [facility]Start: 07-12-2024 End: 52-38-2242Lbpscqf encounter pfughrbel08/19/2025 2:40 PM EST Office Visit Otolaryngology [address] [place] [address] Marky Gasca PA-C [address] [place], [place] [id number] RecurrentThrush.OtolaryngologyComment on above:Recurrent Thrush.Start: 07-11-2024 End: 10-24-1134gdlsiscrqv73/18/2025 9:30 AM EST Infusion Center Hematology/Oncology [address] [facility] [place] [address] IVIG for hypogammaglobulinemia + o94Hiuqcebusl/OncologyComment on above:IVIG for hypogammaglobulinemia + i81Szsnp: 07-03-2024 End: 320219-tuocxgsocdewhe D3 [Mass/volume] in Serum or PlasmaVITAMIN D 25 HYDROXY Lab Routine Vitamin D deficiency Expected: 07/03/2024 (Approximate), Expires: 04/02/2025[facility] ClinicComment on above:Expected: 07/03/2024 (Approximate), Expires: 04/02/2025Start: 07-03-2024 End: 04-02-2025 reactive protein [Mass/volume] in Serum or PlasmaC-REACTIVE PROTEIN Lab Routine Elevated sed rate Elevated C-reactive protein (CRP) Expected: 07/03/2024 (Approximate), Expires: 04/02/2025[facility] ClinicComment on above:Expected: 07/03/2024 (Approximate), Expires: 04/02/2025Start: 07-03-2024 End: 28-34-6943LKI panel - Blood by Automated countCOMPLETE BLOOD COUNT Lab Routine Anemia of chronic disease Expected: 07/03/2024 (Approximate), Expires: 04/02/2025[facility] ClinicComment on above:Expected: 07/03/2024 (Approximate), Expires: 04/02/2025Start: 07-03-2024 End: 10-92-6302Curervzeylrrx metabolic 2000 panel - Serum or PlasmaCOMPREHENSIVE METABOLIC PANEL Lab Routine Elevated LFTs Expected: 07/03/2024 (Approximate), Expires: 04/02/2025[facility] Work Phone: Comment on above:Expected: 07/03/2024 (Approximate), Expires: 04/02/2025Start: 07-03-2024 End: 78-54-6606Oveaworfggd sedimentation rateSEDIMENTATION RATE, WESTERGREN Lab Routine Elevated sed rate Elevated C-reactive protein (CRP) Expected: 07/03/2024 (Approximate), Expires: 04/02/2025[facility] ClinicComment on above:Expected: 07/03/2024 (Approximate), Expires: 04/02/2025Start: 06-29-2024 End: 45-67-7619Vkwofmmec Dciaszpl38/06/2025 10:00 AM EST Specialty Pharmacy [facility] [address] [place] [address] Pharmacist, Specialtygroup [address] [place] [address] [place], [place] [address] REFILL- Benlysta- PAx 02/11/25- CC Specialty PharmacyComment on above:REFILL- Benlysta- PAx 02/11/25Start: 06-26-2024 End: 20-19-8894Cbixpyd evaluation of patient and ugvwfk8806/26/2024 9:45 AM EST Nurse Visit Hematology/Oncology [address] [facility] [place] [address] Hoda Marshall Nurse Sawyer [address] [facility] [place] [address] Z63Sqjarcdlbk/OncologyComment on above:N33Gyxcy: 06-26-2024 End: 96-09-0541knzjxnqweoLljrgfjkal/OncologyComment on above:RTC 3 monthIVIG for hypogammaglobulinemiaStart: 06-26-2024 End: 07-27-4410Ygtfdth encounter ilhnssqlu73/03/2025 8:45 AM EST Office Visit [facility] Laboratory [address] [place] [address] labsNoWetzel County Hospital LaboratoryComment on above:labsStart: 06-14-2024 End: 33-27-4559Aedpovp evaluation of patient and reportNehalem Gastroenterology and Endoscopy CenterComment on above:Abdominal Pain/Diarrhea/Bandar S OFFICE SERVICES ASSISTANT ordered/Patient has prep thru MyChart//ccSIBO - Abdominal Pain/Diarrhea/Bandar S OFFICE SERVICES ASSISTANT ordered/Patient has prep thru MyChart//cc Order in Scanned DocumentsStart: 06-13-2024 End: 98-96-1989Esgsyevnd (Vitamin B12) [Mass/volume] in Serum or PlasmaCleveland ClinicComment on above:Expected: 06/13/2024, Expires: 09/12/2024Start: 06-13-2024 End: 37-62-2659Hpfunflq [Mass/volume] in Serum or PlasmaCleveland Clinic Foundation Work Phone: Comment on above:Expected: 06/13/2024, Expires: 09/12/2024Start: 06-13-2024 End: 56-45-6771Aemfjv [Mass/volume] in Serum or PlasmaCleveland ClinicComment on above:Expected: 06/13/2024, Expires: 09/12/2024Start: 06-13-2024 End: 32-81-1298Jjqw and Iron binding capacity panel - Serum or PlasmaCleveland ClinicComment on above:Expected: 06/13/2024, Expires: 09/12/2024Start: 06-13-2024 End: 16-33-3431Crwbnau evaluation of patient and aoqsxh5106/13/2024 9:45 AM EST Nurse Visit Hematology/Oncology [address] [facility] [place] [address] Hoda Marshall Nurse Sawyer [address] [facility] [place] [address] B76Kbksniurhj/OncologyComment on above:W18Gxcyx: 06-13-2024 End: 99-09-6733alkqugdooeJwtcvmuyvd/OncologyComment on above:RTC 3 monthIVIG for hypogammaglobulinemiaStart: 06-13-2024 End: 04-73-6582Hdzohxg encounter udasncnha31/21/2025 8:45 AM EST Office Visit [facility] [address] [facility] [place] [address] labsNortKarmanos Cancer Center LaboratoryComment on above:labsStart: 06-06-2024 End: 90-31-4994RQ Breast - bilateral ScreeningBilateral screening mammogram Imaging Routine Breast cancer screening by mammogram Expected: 06/06/2024 (Approximate), Expires: 08/04/2025[facility] Work Phone: Comment on above:Expected: 06/06/2024 (Approximate), Expires: 08/04/2025Start: 06-06-2024 End: 84-57-9265GX Breast - left DiagnosticLeft diagnostic mammogram Imaging Routine Breast nodule Expected: 06/06/2024 (Approximate), Expires: 08/04/2025 [facility] HealthcareComment on above:Expected: 06/06/2024 (Approximate), Expires: 08/04/2025Start: 06-06-2024 End: 18-56-6895Jvtoaak encounter procedureNOMS BCP OBComment on above:REFILL- Benlysta- PAx 02/11/25Start: 05-29-2024 End: 06-71-1340Ooohxif evaluation of patient and jrebpo5805/29/2024 9:30 AM EST Nurse Visit Hematology/Oncology [address] [facility] [place] [address] Hoda Marshall Nurse Sawyer [address] [facility] [place] [address] C85Bscngajvrq/OncologyComment on above:R28Wmyed: 12-27-2024 End: 60-57-8919uobrofmhvv96/27/2024 9:30 AM EST Infusion Center Hematology/Oncology [address] [facility] [place] [address] IVIG for hypogammaglobulinemiaHematology/OncologyComment on above:IVIG for hypogammaglobulinemiaStart: 05-12-2024 End: 81-56-2985Gzijmlfup Bpphosyi95/20/2024 10:00 AM EST Specialty Pharmacy [facility] [address] [place] [address] Drive [id number] [address] Pharmacist, [facility] [address] [place] [address] [address] [place], [place] [address] REFILL- Benlysta- PAx 02/11/25CC Specialty PharmacyComment on above:REFILL- Benlysta- PAx 02/11/25Start: 04-28-2024 End: 78-04-8563SK.doppler Extremity arteries - bilateral for physiologic artery studyVas art doppler lwr bilat mult lev/PVR Vascular Ultrasound Routine Peripheral vascular disease, unspecified (CMS-HCC) Cold extremities Systemic lupus erythematosus (CMS-HCC) Expected: 04/28/2024, Expires: 04/28/2025[facility] Work Phone: Comment on above:Expected: 04/28/2024, Expires: 04/28/2025Start: 04-24-2024 End: 04-95-5985Swsodqb evaluation of patient and ndvzbd0304/24/2024 9:30 AM EST Nurse Visit Hematology/Oncology [address] [place] [address] Hoda Marshall Nurse Sawyer [address] [place] [address] V88Ljcavexygy/OncologyComment on above:P28Urgdh: 04-18-2024 End: 29-07-3119Hasdqpv evaluation of patient and reportNehalem Gastroenterology and Endoscopy CenterComment on above:referSiboStart: 04-14-2024 End: 68-30-5664pduzbaaunxHhehieqxmo/OncologyComment on above:IVIG for hypogammaglobulinemiaREFILL- Benlysta- PAx 02/11/25- Start: 04-11-2024 End: 40-48-5510Dooqwryeu PharmacyCCF Specialty PharmacyComment on above:REFILL- Benlysta- PAx 02/11/25- [facility] 09/2024- REFILL- Benlysta- PAx 02/11/25- Start: 04-06-2024 End: 88-31-6182NG.doppler Extremity arteries - bilateral for physiologic artery studyVas art doppler lwr bilat mult lev/PVR Vascular Ultrasound Routine Cold extremities Pain of lower extremity, unspecified laterality Systemic lupus erythematosus (CMS-HCC) Expected: 04/06/2024, Expires: 2025[facility] Work Phone: Comment on above:Expected: 04/06/2024, Expires: 2025Start: 03-28-2024 End: 14-05-3849bddkgemwhb18/05/2024 1:00 PM [facility] Hematology/Oncology [address] [place] [address] [place] [address] Vera Najera MD [address] [place] [address] [place] [address] 13 wk virtual after labs last weekHematology/OncologyComment on above:13 wk virtual after labs last weekStart: 03-23-2024 End: 82-37-4852iSUW in Blood by Coagulation assayAPTT Lab Routine Menorrhagia with regular cycle Expected: 03/23/2024 (Approximate), Expires: 03/23/2025[facility] HealthcareComment on above:Expected: 03/23/2024 (Approximate), Expires: 03/23/2025Start: 03-23-2024 End: 25-72-2931JL for pregnancyUS PELVIS-TRANSVAG IF INDICATED Imaging Routine Menorrhagia with regular cycle Expected: 03/23/2024(Approximate), Expires: 03/23/2025[facility] HealthcareComment on above:Expected: 03/23/2024 (Approximate), Expires: 03/23/2025Start: 03-21-2024 End: 13-33-9888Qtaorzs evaluation of patient and dpybtt3903/21/2024 11:45 AM EDT Nurse Visit Hematology/Oncology [address] [place] [address] Hoda Marshall Nurse Sawyer [address] [place] [address] b84Rcrxwyhjen/OncologyComment on above:o42Dclyp: 03-21-2024 End: 85-82-3683Qrnqshr encounter epachhvda53/29/2024 11:15 AM EDT Office Visit [facility] Laboratory [address] [place] [address] LAbNortKarmanos Cancer Center LaboratoryComment on above:LAbStart: 03-20-2024 End: 081730-avbnuumjwstzli D3 [Mass/volume] in Serum or PlasmaVITAMIN D 25 HYDROXY Lab Routine Vitamin D deficiency Expected: 03/20/2024 (Approximate), Expires: 12/29/2024[facility] ClinicComment on above:Expected: 03/20/2024 (Approximate), Expires: 12/29/2024Start: 03-20-2024 End: 28-27-8866CNFWL TB SCREENBLOOD TB SCREEN Lab Routine Screening-pulmonary TB Expected: 03/20/2024 (Approximate), Expires: 12/29/2024[facility] ClinicComment on above:Expected: 03/20/2024 (Approximate), Expires: 12/29/2024Start: 03-20-2024 End: 12-29-2024 reactive protein [Mass/volume] in Serum or PlasmaC-REACTIVE PROTEIN Lab Routine Elevated C-reactive protein (CRP) Elevated sed rate Expected: 03/20/2024 (Approximate), Expires: 12/29/2024[facility] ClinicComment on above:Expected: 03/20/2024 (Approximate), Expires: 12/29/2024Start: 03-20-2024 End: 03-37-8996EPA W Auto Differential panel - BloodCOMPLETE BLOOD COUNT AND DIFFERENTIAL Lab Routine Megaloblastic anemia due to vitamin B12 deficiency Elevated sed rate Obstructive sleep apnea syndrome Expected: 03/20/2024 (Approximate), Expires: 06/19/2024[facility] HospitalComment on above:Expected: 03/20/2024 (Approximate), Expires: 06/19/2024Start: 03-20-2024 End: 90-99-0838Ajeqgllbv (Vitamin B12) [Mass/volume] in Serum or PlasmaVITAMIN B12 Lab Routine Megaloblastic anemia due to vitamin B12 deficiency Elevated sed rate Obstructive sleep apnea syndrome Expected: 03/20/2024 (Approximate), Expires: 06/19/2024[facility] HospitalComment on above:Expected: 03/20/2024 (Approximate), Expires: 06/19/2024Start: 03-20-2024 End: 06-60-2216Ckrfcfzeyhqez metabolic 2000 panel - Serum or PlasmaCOMPREHENSIVE METABOLIC PANEL Lab Routine Megaloblastic anemia due to vitamin B12 deficiency Elevated sed rate Obstructive sleep apnea syndrome Expected: 03/20/2024 (Approximate), Expires: 06/19/2024[facility] Work Phone: Comment on above:Expected: 03/20/2024 (Approximate), Expires: 06/19/2024Start: 03-20-2024 End: 18-75-7573Azxxinwsxov sedimentation rateSEDIMENTATION RATE, WESTERGREN Lab Routine Elevated C-reactive protein (CRP) Elevated sed rate Expected: 03/20/2024 (Approximate), Expires: 12/29/2024[facility] Work Phone: Comment on above:Expected: 03/20/2024 (Approximate), Expires: 12/29/2024Start: 03-20-2024 End: 91-91-4767Vzqsckaw [Mass/volume] in Serum or PlasmaFERRITIN Lab Routine Megaloblastic anemia due to vitamin B12 deficiency Elevated sed rate Obstructive sleep apnea syndrome Expected: 03/20/2024 (Approximate), Expires: 06/19/2024 [facility] HospitalComment on above:Expected: 03/20/2024 (Approximate), Expires: 06/19/2024Start: 03-20-2024 End: 36-33-1936Qevqgm [Mass/volume] in Serum or PlasmaFOLATE, SERUM Lab Routine Megaloblastic anemia due to vitamin B12 deficiency Elevated sed rate Obstructive sleep apnea syndrome Expected: 03/20/2024 (Approximate), Expires: 06/19/2024 [facility] HospitalComment on above:Expected: 03/20/2024 (Approximate), Expires: 06/19/2024Start: 03-20-2024 End: 05-13-8212YEQGWSAFVKJKMSA,IGG,IGA,IGMIMMUNOGLOBULINS,IGG,IGA,IGM Lab Routine Megaloblastic anemia due to vitamin B12 deficiency Elevatedsed rate Obstructive sleep apnea syndrome Expected: 03/20/2024 (Approximate), Expires: 06/19/2024[facility] ClinicComment on above:Expected: 03/20/2024 (Approximate), Expires: 06/19/2024Start: 03-20-2024 End: 07-58-4969Kifr and Iron binding capacity panel - Serum or PlasmaIRON AND TIBC Lab Routine Megaloblastic anemia due to vitamin B12 deficiency Elevated sed rate Obstructive sleep apnea syndrome Expected: 03/20/2024 (Approximate), Expires: 06/19/2024[facility] ClinicComment on above:Expected: 03/20/2024 (Approximate), Expires: 06/19/2024Start: 03-18-2024 End: 93-15-4002Vqzhmmj encounter yjsemmykr95/26/2024 9:00 AM EDT [facility] Rheumatology [address] [place] [address] Lynne Ni MD [address] [place], [place] [id number] May offer 03/18/24 Sat REJ 4th floor in person/virtual/phone for lupusRheumatologyComment on above:May offer 03/18/24 Sat REJ 4th floor in person/virtual/phone for lupusStart: 19-29-2858Kdiotfg referralCoshocton Regional Medical Center Work Phone: Start: 03-16-2024 End: 28-69-3369ZD Breast - bilateralBilateral breast US complete Imaging Routine Nipple discharge Expected: 03/16/2024, Expires: 05/16/2025[facility] Work Phone: comment on above:Expected: 03/16/2024, Expires: 05/16/2025Start: 03-16-2024 End: 12-30-0366Jcvbhxqym [facility]acyGO[facility] Specialty PharmacyComment on above:REFILL- Benlysta- PAx 02/11/25- NCA 09/2024-l/m 03/13ArrivedStart: 03-13-2024 End: 89-32-4779Wsqnutmbn PharmacyGO[facility] Specialty PharmacyComment on above:REFILL- Benlysta- PAx 02/04/24- NCA 09/2024-, ND 02/23-renewal sub 02/13REFILL- Benlysta- PAx 02/11/25- NCA 09/2024-,Start: 02-22-2024 End: 41-92-5612Rwclxyv evaluation of patient and mqkzqm3502/22/2024 11:45 AM EDT Nurse Visit Hematology/Oncology [address] [place] [address] Hoda Marshall Nurse Sawyer [address] [facility] [place] [place] [address] s43Jafbbnigta/OncologyComment on above:g37Zfiuu: 02-22-2024 End: 41-12-8339Fgkqqbp encounter zxoregozg04/01/2024 11:15 AM EDT Office Visit [facility] Laboratory [address] [facility] [place] [place] [address] LAbNortKarmanos Cancer Center LaboratoryComment on above:LAbStart: 02-21-2024 End: 11-13-2978Jpzplfz evaluation of patient and osvumy7702/21/2024 10:45 AM EDT Nurse Visit Hematology/Oncology [address] [place] [address] Hoda Marshall Nurse Sawyer [address] [place] [address] j11Otvwkjcghq/OncologyComment on above:l69Xhaww: 02-21-2024 End: 73-49-8448Jmkitol encounter rckjmckyb04/30/2024 10:30 AM EDT Office Visit [facility] Laboratory [address] [facility] [place] [address] LAbNoWetzel County Hospital LaboratoryComment on above:LAbStart: 18-82-8958QyyunswtkOhioHealth Grant Medical Centertart: 02-14-2024 End: 83-16-6389Nagilg-up encounterNeurologyComment on above:Cpap follow up REFILL- Benlysta- PAx 02/04/24- NCA 09/2024-, ND 02/23Start: 02-09-2024 End: 72-29-3720Uyonwfq encounter verchstyo41/18/2024 8:00 AM EDT Office Visit [facility] NE[facility]O [address] [facility] [address] [place] [address], [place] [phone] Zita Cuellar, FILM COATER [address] [facility] [address] [place] [address] [phone] (Work) [facility] NEURO 210Start: 01-27-2024 End: 64-01-4292Sihtobyu identified in Blood by CultureBLOOD CULTURE Microbiology Routine Pseudomonas infection Expected: 01/27/2024, Expires: 04/27/2024 [facility] Work Phone: comment on above:Expected: 01/27/2024, Expires: 04/27/2024Start: 01-27-2024 End: 96-89-5161Ejpkdv-up fyyrnssgl17/05/2024 10:00 AM EDT [facility] Infectious Disease [address] [place] [address] Alhaji Victoria DO [facility] [address] [place] [address] follow upInfectious DiseaseComment on above:follow up Start: 01-25-2024 End: 02-20-8529Arwjvfd evaluation of patient and reportHematology/Oncology Comment on above:b12B12(change date)Start: 01-25-2024 End: 68-91-5458Htedtcx encounter procedureNortKarmanos Cancer Center LaboratoryComment on above:LAbNO LAB ORDERS LAbStart: 43-39-3981Wxtchlxgz vaccinationInfluenza Vaccine (#1)[facility] HealthcareComment on above:Postponed from 01/22/2023 (Patient Refused)Start: 59-34-2373Nngcm-19 Vaccine ( season)Covid-19 Vaccine ()[facility] 01-23-2024 Covid-19 Vaccine ()Covid-19 Vaccine () [facility]: 49-74-6823Ldubrrcby vaccinationKettering Health Springfieldtart: 01-20-2024 End: 76-78-5427Uyrmtrmol PharmacyCCF Specialty PharmacyComment on above:refill - benlysta- NCA 09/2024-- pa exp: 02/04/24-pseudomonas oryzihabitans in my breastStart: 12-27-2023 End: 04-54-0335Pxrfoys evaluation of patient and scqipr6012/27/2023 12:00 PM EDT Nurse Visit Hematology/Oncology [address] [place] [address] Hoda Marshall Nurse Sawyer [address] [place] [address] q59Rtwumxctoh/OncologyComment on above:r70Nlizp: 12-27-2023 End: 85-42-0848Vixefc-up rwnpiotxb49/05/2024 11:30 AM EDT Visit (SP) Office Hematology/Oncology [address] [place] [address] Neda Hill PA-C [address] [place] [address] 13 week follow up, labs 1 week beforeHematology/OncologyComment on above:13 week follow up, labs 1 week beforeStart: 12-27-2023 End: 20-09-9927Vocikub encounter nehewblta43/05/2024 11:15 AM EDT Office Visit [facility] Laboratory [address] [place] [address] LAbNortKarmanos Cancer Center LaboratoryComment on above:LAbStart: 12-13-2023 End: 87-48-6629Vmmdwgejj Vjgdiqvs74/22/2024 10:00 AM EDT Specialty Pharmacy [facility] [address] [place] [address] Drive [id number] [address] Pharmacist, [facility] [address] [place] [address] [place], [place] [address] refill - benlysta- NCA - pa exp: 02/04/24-[facility] Specialty PharmacyComment on above:refill - benlysta- NCA - pa exp: 02/04/24-Start: 12-10-2023 End: 02-18-1211Ykfukw-up ozpbqvjfs25/19/2024 10:45 AM EDT Visit (SP) Office Hematology/Oncology [address] [facility] [place] [address] Vera Najera MD [address] [facility] [place] [address] 13 week follow up, labs 1 week beforeHematology/Oncology Comment on above:13 week follow up, labs 1 week beforeStart: 12-04-2023 End: 116470-getyngqfhmvpji D3 [Mass/volume] in Serum or PlasmaVITAMIN D 25 HYDROXY Lab Routine Vitamin D deficiency Expected: 12/04/2023 (Approximate), Expires: 09/03/2024[facility] Work Phone: Comment on above:Expected: 12/04/2023 (Approximate), Expires: 09/03/2024Start: 12-04-2023 End: 09-03-2024 reactive protein [Mass/volume] in Serum or PlasmaC-REACTIVE PROTEIN Lab Routine Elevated sed rate Elevated C-reactive protein (CRP) Expected: 12/04/2023 (Approximate), Expires: 09/03/2024[facility] Work Phone: Comment on above:Expected: 12/04/2023 (Approximate), Expires: 09/03/2024Start: 12-04-2023 End: 11-23-1517BVM panel - Blood by Automated countCOMPLETE BLOOD COUNT Lab Routine Anemia of chronic disease Expected: 12/04/2023 (Approximate), Expires: 09/03/2024[facility] Work Phone: Comment on above:Expected: 12/04/2023 (Approximate), Expires: 09/03/2024Start: 12-04-2023 End: 44-83-4176Xriktgjvbtaup metabolic 2000 panel - Serum or PlasmaCOMPREHENSIVE METABOLIC PANEL Lab Routine Elevated LFTs Expected: 12/04/2023 (Approximate), Expires: 09/03/2024[facility] Work Phone: Comment on above:Expected: 12/04/2023 (Approximate), Expires: 09/03/2024Start: 12-04-2023 End: 30-70-2446Zmujqxfqwgy sedimentation rateSEDIMENTATION RATE, WESTERGREN Lab Routine Elevated sed rate Elevated C-reactive protein (CRP) Expected: 12/04/2023 (Approximate), Expires: 09/03/2024[facility] Work Phone: Comment on above:Expected: 12/04/2023 (Approximate), Expires: 09/03/2024Start: 12-03-2023 End: 85-63-3757Npncard evaluation of patient and pnqbrp0912/03/2023 11:00 AM EDT Nurse Visit Hematology/Oncology [address] [place] [address] Hoda Marshall Nurse Sawyer [address] [facility] [place] [address] g97Kuosnytkjm/OncologyComment on above:c46Yloyr: 12-03-2023 End: 28-79-3991Zsneubn encounter mdfjjublq98/12/2024 10:45 AM EDT Office Visit [facility] Laboratory [address] [facility] [place] [address] [facility] LaboratoryComment on above:labStart: 12-02-2023 End: 37-31-5370GKV W Auto Differential panel - BloodCOMPLETE BLOOD COUNT AND DIFFERENTIAL Lab Routine Megaloblastic anemia due to vitamin B12 deficiency High total serum IgM Expected: 12/02/2023 (Approximate), Expires: 09/08/2024 [facility] Work Phone: Comment on above:Expected: 12/02/2023 (Approximate), Expires: 09/08/2024Start: 12-02-2023 End: 80-84-6983Pdqriyyaq (Vitamin B12) [Mass/volume] in Serum or PlasmaVITAMIN B12 Lab Routine Megaloblastic anemia due to vitamin B12 deficiency High total serum IgM Expected: 12/02/2023 (Approximate), Expires: 09/08/2024[facility] Work Phone: Comment on above:Expected: 12/02/2023 (Approximate), Expires: 09/08/2024Start: 12-02-2023 End: 96-72-4309Rcxrvipjxopft metabolic 2000 panel - Serum or PlasmaCOMPREHENSIVE METABOLIC PANEL Lab Routine Megaloblastic anemia due to vitamin B12 deficiency High total serum IgM Expected: 12/02/2023 (Approximate), Expires: 09/08/2024 [facility] Work Phone: Comment on above:Expected: 12/02/2023 (Approximate), Expires: 09/08/2024Start: 12-02-2023 End: 56-75-7596Iaxlkazphkz sedimentation rateSEDIMENTATION RATE, WESTERGREN Lab Routine Megaloblastic anemia due to vitamin B12 deficiency High total serum IgM Expected: 12/02/2023 (Approximate), Expires: 03/02/2024[facility] Work Phone: Comment on above:Expected: 12/02/2023 (Approximate), Expires: 03/02/2024Start: 12-02-2023 End: 76-54-4565Btegbohf [Mass/volume] in Serum or PlasmaFERRITIN Lab Routine Megaloblastic anemia due to vitamin B12 deficiency High total serum IgM Expecte d: 12/02/2023 (Approximate), Expires: 09/08/2024[facility] Work Phone: Comment on above:Expected: 12/02/2023 (Approximate), Expires: 09/08/2024Start: 12-02-2023 End: 03-83-0041Sapfra [Mass/volume] in Serum or PlasmaFOLATE, SERUM Lab Routine Megaloblastic anemia due to vitamin B12 deficiency High total serum IgM Ex pected: 12/02/2023 (Approximate), Expires: 09/08/2024[facility] Work Phone: Comment on above:Expected: 12/02/2023 (Approximate), Expires: 09/08/2024Start: 12-02-2023 End: 91-98-6302SfL [Mass/volume] in Serum or PlasmaIMMUNOGLOBULIN A Lab Routine Megaloblastic anemia due to vitamin B12 deficiency High total serum IgM Expected: 12/02/2023 (Approximate), Expires: 03/02/2024[facility] Work Phone: Comment on above:Expected: 12/02/2023 (Approximate), Expires: 03/02/2024Start: 12-02-2023 End: 80-63-0776YyE [Units/volume] in Serum or PlasmaIMMUNOGLOBULIN E Lab Routine Megaloblastic anemia due to vitamin B12 deficiency High total serum IgM Expected: 12/02/2023 (Approximate), Expires: 03/02/2024[facility] Work Phone: Comment on above:Expected: 12/02/2023 (Approximate), Expires: 03/02/2024Start: 12-02-2023 End: 34-80-1545GeL [Mass/volume] in Serum or PlasmaIMMUNOGLOBULIN G Lab Routine Megaloblastic anemia due to vitamin B12 deficiency High total serum IgM Expected: 12/02/2023 (Approximate), Expires: 03/02/2024[facility] Work Phone: Comment on above:Expected: 12/02/2023 (Approximate), Expires: 03/02/2024Start: 12-02-2023 End: 50-45-2683ImE [Mass/volume] in Serum or PlasmaIMMUNOGLOBULIN M Lab Routine Megaloblastic anemia due to vitamin B12 deficiency High total serum IgM Expected: 12/02/2023 (Approximate), Expires: 03/02/2024[facility] Work Phone: Comment on above:Expected: 12/02/2023 (Approximate), Expires: 03/02/2024Start: 12-02-2023 End: 58-84-6702Nyvi and Iron binding capacity panel - Serum or PlasmaIRON AND TIBC Lab Routine Megaloblastic anemia due to vitamin B12 deficiency High total serum IgM Expected: 12/02/2023 (Approximate), Expires: 09/08/2024[facility] Work Phone: Comment on above:Expected: 12/02/2023 (Approximate), Expires: 09/08/2024Start: 11-29-2023 End: 14-85-0600Pxfkgfr evaluation of patient and oqigqg9511/29/2023 2:15 PM EDT Nurse Visit Hematology/Oncology [address] [facility] [address] [place] [address] [phone] Joanna Wi Nurse Sawyer [address] [place] [address] s32Awcmynyqtq/OncologyComment on above:j64Ggmyz: 11-15-2023 End: 93-03-0028Qswnizkag Jskojrvb00/24/2024 10:00 AM EDT Specialty Pharmacy [facility] [address] [place] [address] Drive [id number] [address] Pharmacist, [facility] [address] [place] [address] [place], [place] [address] refill - benlysta- NCA 09/2024-- pa exp: 02/04/24-[facility] Specialty PharmacyComment on above:refill - benlysta- NCA 09/2024-Thursdays- pa exp: 02/04/24-Start: 10-29-2023 End: 09-60-4852Fsmleuz evaluation of patient and ddqlsl6610/29/2023 11:00 AM EDT Nurse Visit Hematology/Oncology [address] [facility] [place] [address] Hoda Marshall Nurse Sawyer [address] [facility] [place] [address] r55Lwzboujren/OncologyComment on above:w72Crerz: 10-15-2023 End: 16-28-9443Qamydexxo Rfgdvfgw66/24/2024 10:00 AM EDT Specialty Pharmacy [facility] [address] [place] [address] Pharmacist, [facility]ty[facility] [address] [place] [address] [place] [id number] 22 refill - benlysta-Thursdays- pa exp: 02/04/24-l/m 10/11CC Specialty PharmacyComment on above:refill - benlysta-Thursdays- pa exp: 02/04/24-l/m art: 10-12-2023 End: 58-31-1728Vbtrjrqve Xiaqxnuk05/21/2024 10:00 AM EDT Specialty Pharmacy [facility] [address] [place] [phone] Pharmacist, [facility]ty[facility] [address] [place] [address] [address] [place] [id number] 22 refill - benlysta-Thursdays- pa exp: 02/04/24-[facility] Specialty PharmacyComment on above:refill - benlysta-Thursdays- pa exp: 02/04/24-Start: 10-05-2023 End: 52-97-5318Zkbekof encounter ggttnmjet29/14/2024 8:00 AM EDT [facility] Rheumatology [address] [place] [address] Lynne Ni MD [address] [facility] [place] [address] 6 mo f/u for LupusRheumatologyComment on above:6 mo f/u for LupusStart: 10-01-2023 End: 06-54-9644Qagjwaz evaluation of patient and zwgkic2710/01/2023 11:00 AM EDT Nurse Visit Hematology/Oncology [address] [facility] [place] [address] [phone] Hoda Marshall Nurse Sawyer [address] [facility] [place] [address] k05Ywyuphnxjw/OncologyComment on above:v34Hvlgm: 09-16-2023 End: 68-06-1851Hiifvzooo Jiirdwvk36/25/2024 10:00 AM EDT Specialty Pharmacy [facility] [address] [place] [address] Pharmacist, [facility]ty[facility] [address] [place] [address] refill - benlysta-Thursdays- pa exp: 02/04/24-[facility] Specialty PharmacyComment on above:refill - benlysta-Thursdays- pa exp: 02/04/24-lvmStart: 09-13-2023 End: 51-57-0955Abknbhu encounter sqymsnuml66/22/2024 9:00 AM EDT Office Visit [facility] [address] [place] [address] Kade Early MD [address] [facility] [address] [id number] [facility] NEURStart: 07-19-2023 End: 18-99-7638Tariemu encounter procedureFroedtert Hospitaltart: 07-15-2023 End: 85-02-7341Nnnrjsx encounter crbizcrtf94/22/2024 10:50 AM EST Office Visit [facility] [address] [place] [address] Bernabe English MD [address] [place] [address] [facility] SWS DERMStart: 07-06-2023 End: 86-86-3210Uesflxm encounter yqpamvdhf73/13/2024 2:30 PM EST Office Visit [facility] [address] [place] [phone] Kade Early MD [address] [facility] [address] [place] [address] [facility] NEURO 210Start: 07-06-2023 End: 21-11-9728Vzbocch electrophoresis, serumProtein electrophoresis, serum Lab Routine Autoimmune disease (CMS/HCC) Autonomic dysfunction Expected: 07/06/2023 (Approximate), Expires: 07/06/2024[facility] Work Phone: Comment on above:Expected: 07/06/2023 (Approximate), Expires: 07/06/2024Start: 07-06-2023 End: 38-17-5226Zjpmenw electrophoresis, urineProtein electrophoresis, urine Lab Routine Autoimmune disease (CMS/HCC) Autonomic dysfunction Expected: 07/06/2023 (Approximate), Expires: 07/06/2024[facility] HealthcareComment on above:Expected: 07/06/2023 (Approximate), Expires: 07/06/2024Start: 06-09-2023 End: 33-00-2648Mdynhs monitor study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 Cardiac Services Routine Irregular heart rate Expected: 06/09/2023 (Approximate), Expires: 06/09/2024[facility] Work Phone: Comment on above:Expected: 06/09/2023 (Approximate), Expires: 06/09/2024Start: 06-09-2023 End: 76-58-8196Qzcni 1996 panel - Serum or PlasmaLipid Panel Lab Routine Primary hypertension Expected: 06/09/2023 (Approximate), Expires: 06/09/2024[facility] Work Phone: Comment on above:Expected: 06/09/2023 (Approximate), Expires: 06/09/2024Start: 06-09-2023 End: 62-22-8551Soodscqbeiw [Units/volume] in Serum or PlasmaThyroid Stimulating Hormone Lab Routine Irregular heart rate Expected: 06/09/2023 (Approximate), Exp ires: 06/09/2024[facility] Work Phone: Comment on above:Expected: 06/09/2023 (Approximate), Expires: 06/09/2024Start: 06-09-2023 End: 28-23-1991Vkctgzszv (T4) free [Mass/volume] in Serum or PlasmaThyroxine, Free Lab Routine Irregular heart rate Expected: 06/09/2023 (Approximate), Expires: 06/09/2024[facility] Work Phone: Comment on above:Expected: 06/09/2023 (Approximate), Expires: 06/09/2024Start: 06-09-2023 End: 18-43-8598RW Heart TransthoracicTransthoracic Echo (TTE) Complete Echocardiography Routine Irregular heart rate Obstructive sleep apnea syndrome Expected: 06/09/2023 (Approximate), Expires: 06/09/2025[facility] Service Area Work Phone: Comment on above:Expected: 06/09/2023 (Approximate), Expires: 06/09/2025Start: 04-25-2023 End: [id number] [Mass/volume] in Serum or PlasmaVITAMIN D 25 HYDROXY Lab Routine Vitamin D deficiency Expected: 04/25/2023 (Approximate), Expires: 01/25/2024[facility] Work Phone: Comment on above:Expected: 04/25/2023 (Approximate), Expires: 01/25/2024Start: 04-25-2023 End: 01-25-2024 reactive protein [Mass/volume] in Serum or PlasmaC-REACTIVE PROTEIN (CRP) Lab Routine Elevated sed rate Elevated C-reactive protein (CRP) Expected: 04/25/2023 (Approximate), Expires: 01/25/2024[facility] Work Phone: Comment on above:Expected: 04/25/2023 (Approximate), Expires: 01/25/2024Start: 04-25-2023 End: [id number] panel - Blood by Automated countCBC Lab Routine Anemia of chronic disease Expected: 04/25/2023 (Approximate), Expires: 01/25/2024[facility] Work Phone: Comment on above:Expected: 04/25/2023 (Approximate), Expires: 01/25/2024Start: 04-25-2023 End: 89-21-5898Eovvddxrsncps metabolic 2000 panel - Serum or PlasmaCOMP METABOLIC PANEL Lab Routine Elevated LFTs Expected: 04/25/2023 (Approximate), Expires: 01/25/2024[facility] Work Phone: Comment on above:Expected: 04/25/2023 (Approximate), Expires: 01/25/2024Start: 04-25-2023 End: 76-52-8544Tdpijijstzb sedimentation rateSED RATE WESTERGREN Lab Routine Elevated sed rate Elevated C-reactive protein (CRP) Expected: 04/25/2023 (Approximate), Expires: 01/25/2024[facility] Work Phone: Comment on above:Expected: 04/25/2023 (Approximate), Expires: 01/25/2024Start: 54-38-4023KIFYZ-19 Vaccine (4 - Pfizer risk series) COVID-19 Vaccine (4 - Pfizer risk series)[facility] 52-52-2988Rtrzd-19 Vaccine ()Covid-19 Vaccine ()[facility] 11-31-4979Oasza-19 Vaccine () Covid-19 Vaccine ()[facility]: 04-16-2023 End: 46-41-0063PWX W Auto Differential panel - BloodCBC + DIFF Lab Routine Megaloblastic anemia due to vitamin B12 deficiency Elevated sed rate Chronic fatigue and malaise High total serum IgM JOSE RAFAEL (obstructive sleep apnea) Expected: 04/16/2023 (Approximate), Expires: 02/20/2024[facility] Work Phone: Comment on above:Expected: 04/16/2023 (Approximate), Expires: 02/20/2024Start: 04-16-2023 End: 36-43-8666Evxglfosq (Vitamin B12) [Mass/volume] in Serum or PlasmaVITAMIN B12 BLOOD Lab Routine Megaloblastic anemia due to vitamin B12 deficiency Elevated sed rate Chronic fatigue and malaise High total serum IgM JOSE RAFAEL (obstructive sleep apnea) Expected: 04/16/2023 (Approximate), Expires: 02/20/2024[facility] Work Phone: Comment on above:Expected: 04/16/2023 (Approximate), Expires: 02/20/2024Start: 04-16-2023 End: 01-55-9804Elgxoojmfkazt metabolic 2000 panel - Serum or PlasmaCOMP METABOLIC PANEL Lab Routine Megaloblastic anemia due to vitamin B12 deficiency Elevated sed rate Chronic fatigue and malaise High total serum IgM JOSE RAFAEL (obstructive sleep apnea) Expected: 04/16/2023 (Approximate), Expires: 02/20/2024[facility] Work Phone: Comment on above:Expected: 04/16/2023 (Approximate), Expires: 02/20/2024Start: 04-16-2023 End: 05-90-2593Uhsfqoxv [Mass/volume] in Serum or PlasmaFERRITIN BLD Lab Routine Megaloblastic anemia due to vitamin B12 deficiency Elevated sed rate Chronic fatigue and malaise High total serum IgM JOSE RAFAEL (obstructive sleep apnea) Expected: 04/16/2023 (Approximate), Expires: 02/20/2024[facility] Work Phone: Comment on above:Expected: 04/16/2023 (Approximate), Expires: 02/20/2024Start: 04-16-2023 End: 55-10-6594Onxlwg [Mass/volume] in Serum or PlasmaFOLATE SERUM Lab Routine Megaloblastic anemia due to vitamin B12 deficiency Elevated sed rate Chronic fatigue and malaise High total serum IgM JOSE RAFAEL (obstructive sleep apnea) Expected: 04/16/2023 (Approximate), Expires: 02/20/2024[facility] Work Phone: Comment on above:Expected: 04/16/2023 (Approximate), Expires: 02/20/2024Start: 04-16-2023 End: 68-45-1880Laya and Iron binding capacity panel - Serum or PlasmaIRON + TIBC Lab Routine Megaloblastic anemia due to vitamin B12 deficiency Elevated sed rate Chronic fatigue and malaise High total serum IgM JOSE RAFAEL (obstructive sleep apnea) Expected: 04/16/2023 (Approximate), Expires: 02/20/2024[facility] Work Phone: Comment on above:Expected: 04/16/2023 (Approximate), Expires: 02/20/2024Start: 06-37-3982IIQAB-19 Vaccine (3 - Pfizer risk series) COVID-19 Vaccine (3 - Pfizer risk series)[facility]: 44-26-0983Vilsrazl mellitus screeningDiabetes ScreeningOhioHealth Southeastern Medical Center: 03-10-2023 End: 92-61-3586Msdgaag [Units/volume] in Serum or PlasmaINSULIN ASSAY BLOOD Lab Routine Insulin resistance, unspecified Expected: 03/10/2023, Expires: 06/09[facility] Work Phone: comment on above:Expected: 03/10/2023, Expires: 06/09/2023Start: 03-10-2023 End: 31-11-4072OOBNTBR ANTIBODY BLDINSULIN ANTIBODY BLD Lab Routine Insulin resistance, unspecified Expected: 03/10/2023, Expires: 06/09/2023[facility] Work Phone: comment on above:Expected: 03/10/2023, Expires: 06/09/2023Start: 02-11-2023 End: 50-22-9445Onty-2-Microglobulin [Mass/volume] in Serum or PlasmaB2 MICROGLOBULIN B Lab Routine Megaloblastic anemia due to vitamin B12 deficiency High total serum IgM Elevated sed rate Expected: 02/11/2023 (Approximate), Expires: 02/08/2024[facility] Work Phone: Comment on above:Expected: 02/11/2023 (Approximate), Expires: 02/08/2024Start: 02-11-2023 End: 38-60-7484Fkixpza.ionized [Moles/volume] in BloodCALCIUM IONIZED BLOOD Lab Routine Megaloblastic anemia due to vitamin B12 deficiency High total serum IgM Elevated sed rate Expected: 02/11/2023 (Approximate), Expires: 02/08/2024 [facility] Work Phone: Comment on above:Expected: 02/11/2023 (Approximate), Expires: 02/08/2024Start: 02-11-2023 End: 72-13-7399QLI W Auto Differential panel - BloodCBC + DIFF Lab Routine Megaloblastic anemia due to vitamin B12 deficiency High total serum IgM Elevated sed rate Expected: 02/11/2023 (Approximate), Expires: 02/08/2024[facility] Work Phone: Comment on above:Expected: 02/11/2023 (Approximate), Expires: 02/08/2024Start: 02-11-2023 End: 15-56-6394Yiewrmjqt (Vitamin B12) [Mass/volume] in Serum or PlasmaVITAMIN B12 BLOOD Lab Routine Megaloblastic anemia due to vitamin B12 deficiency High total serum IgM Elevated sed rate Expected: 02/11/2023 (Approximate), Expires: 02/08/2024[facility] Work Phone: Comment on above:Expected: 02/11/2023 (Approximate), Expires: 02/08/2024Start: 02-11-2023 End: 83-19-0572Copmpfrkcczdt metabolic 2000 panel - Serum or PlasmaCOMP METABOLIC PANEL Lab Routine Megaloblastic anemia due to vitamin B12 deficiency High total serum IgM Elevated sed rate Expected: 02/11/2023 (Approximate), Expires: 02/08/2024[facility] Work Phone: Comment on above:Expected: 02/11/2023 (Approximate), Expires: 02/08/2024Start: 02-11-2023 End: 39-56-3672Pvikbktg [Mass/volume] in Serum or PlasmaFERRITIN BLD Lab Routine Megaloblastic anemia due to vitamin B12 deficiency High total serum IgM Nicole vated sed rate Expected: 02/11/2023 (Approximate), Expires: 02/08/2024[facility] Work Phone: Comment on above:Expected: 02/11/2023 (Approximate), Expires: 02/08/2024Start: 02-11-2023 End: 57-49-9548Wyrszn [Mass/volume] in Serum or PlasmaFOLATE SERUM Lab Routine Megaloblastic anemia due to vitamin B12 deficiency High total serum IgM Elevated sed rate Expected: 02/11/2023 (Approximate), Expires: 02/08/2024[facility] Work Phone: Comment on above:Expected: 02/11/2023 (Approximate), Expires: 02/08/2024Start: 02-11-2023 End: 58-15-9528Gkwv and Iron binding capacity panel - Serum or PlasmaIRON + TIBC Lab Routine Megaloblastic anemia due to vitamin B12 deficiency High total serum IgM Elevated sed rate Expected: 02/11/2023 (Approximate), Expires: 02/08/2024 [facility] Work Phone: Comment on above:Expected: 02/11/2023 (Approximate), Expires: 02/08/2024Start: 02-11-2023 End: 40-56-2884MOXLI/FARMER,FREE,SERKAPPA/FARMER,FREE,SER Lab Routine Megaloblastic anemia due to vitamin B12 deficiency High total serumIgM Elevated sed rate Expected: 02/11/2023 (Approximate), Expires: 04/13/2023[facility] Work Phone: Comment on above:Expected: 02/11/2023 (Approximate), Expires: 04/13/2023Start: 02-11-2023 End: 90-33-0674Vgjqdrq dehydrogenase [Enzymatic activity/volume] in Serum or PlasmaLD LACTATE DEHYDRO Lab Routine Megaloblastic anemia due to vitamin B12 deficiency High total serum IgM Elevated sed rate Expected: 02/11/2023 (Approximate), Expires: 02/08/2024[facility] Work Phone: Comment on above:Expected: 02/11/2023 (Approximate), Expires: 02/08/2024Start: 02-11-2023 End: 14-27-3651THZMSYJPSD PROTEIN, SERUM (BLOOD)MONOCLONAL PROTEIN, SERUM (BLOOD) Lab Routine Megaloblastic anemia due to vitamin B12 deficiency High total serum IgM Elevated sed rate Expected: 02/11/2023 (Approximate), Expires: 02/08/2024[facility] Work Phone: Comment on above:Expected: 02/11/2023 (Approximate), Expires: 02/08/2024Start: 02-11-2023 End: 88-14-1936Uhgcnopai [Mass/volume] in Serum or PlasmaPHOSPHORUS INORGANIC Lab Routine Megaloblastic anemia due to vitamin B12 deficiency High total serum IgM Elevated sed rate Expected: 02/11/2023 (Approximate), Expires: 02/08/2024 [facility] Work Phone: Comment on above:Expected: 02/11/2023 (Approximate), Expires: 02/08/2024Start: 02-11-2023 End: 84-68-1616PLAQSOE ELECTROPHORESIS SERUM W/INTERPPROTEIN ELECTROPHORESIS SERUM W/INTERP Lab Routine Megaloblastic anemia due to vitamin B12 deficiency High total serum IgM Elevated sed rate Expected: 02/11/2023 (Approximate), Expires: 02/08/2024[facility] Work Phone: Comment on above:Expected: 02/11/2023 (Approximate), Expires: 02/08/2024Start: 02-11-2023 End: 52-55-9987Knpio [Mass/volume] in Serum or PlasmaURIC ACID BLOOD Lab Routine Megaloblastic anemia due to vitamin B12 deficiency High total serum IgMElevated sed rate Expected: 02/11/2023 (Approximate), Expires: 02/08/2024[facility] Work Phone: Comment on above:Expected: 02/11/2023 (Approximate), Expires: 02/08/2024Start: 97-26-4576Kzvccvyll vaccinationKettering Health [facility]: 12-17-2022 End: 63-82-3931IRJ W Auto Differential panel - BloodCBC + DIFF Lab Routine Megaloblastic anemia due to vitamin B12 deficiency Expected: 12/17/2022 (Appr oximate), Expires: 10/23/2023[facility] Work Phone: Comment on above:Expected: 12/17/2022 (Approximate), Expires: 10/23/2023Start: 12-17-2022 End: 85-06-2916Vtkrzxwup (Vitamin B12) [Mass/volume] in Serum or PlasmaVITAMIN B12 BLOOD Lab Routine Megaloblastic anemia due to vitamin B12 deficiency Expected: 12/17/2022 (Approximate), Expires: 10/23/2023[facility] Work Phone: Comment on above:Expected: 12/17/2022 (Approximate), Expires: 10/23/2023Start: 12-17-2022 End: 74-21-0824Vqigrcfnovsll metabolic 2000 panel - Serum or PlasmaCOMP METABOLIC PANEL Lab Routine Megaloblastic anemia due to vitamin B12 deficiency Expected: 12/17/2022 (Approximate), Expires: 10/23/2023[facility] Work Phone: Comment on above:Expected: 12/17/2022 (Approximate), Expires: 10/23/2023Start: 12-17-2022 End: 22-42-9958Bdvfbzic [Mass/volume] in Serum or PlasmaFERRITIN BLD Lab Routine Megaloblastic anemia due to vitamin B12 deficiency Expected: 12/17/2022 (Ap proximate), Expires: 10/23/2023[facility] Work Phone: Comment on above:Expected: 12/17/2022 (Approximate), Expires: 10/23/2023Start: 12-17-2022 End: 67-17-1564Kglszv [Mass/volume] in Serum or PlasmaFOLATE SERUM Lab Routine Megaloblastic anemia due to vitamin B12 deficiency Expected: 12/17/2022 (Ap proximate), Expires: 10/23/2023[facility] Work Phone: Comment on above:Expected: 12/17/2022 (Approximate), Expires: 10/23/2023Start: 12-17-2022 End: 54-14-3461Qncn and Iron binding capacity panel - Serum or PlasmaIRON + TIBC Lab Routine Megaloblastic anemia due to vitamin B12 deficiency Expected: 12/17/2022 (Approximate), Expires: 10/23/2023[facility] Work Phone: Comment on above:Expected: 12/17/2022 (Approximate), Expires: 10/23/2023Start: 10-23-2022 End: 55-31-522220964857-peiuvnwisflvve D3 [Mass/volume] in Serum or PlasmaVITAMIN D 25 HYDROXY Lab Routine Megaloblastic anemia due to vitamin B12 deficiency Elevated sed rate High total serum IgM Chronic fatigue and malaise JOSE RAFAEL (obstructive sleep apnea) Expected: 10/23/2022, Expires: 12/23/2022[facility] Work Phone: Comment on above:Expected: 10/23/2022, Expires: 12/23/2022Start: 10-23-2022 End: 12-23-2022 reactive protein [Mass/volume] in Serum or PlasmaC-REACTIVE PROTEIN (CRP) Lab Routine Megaloblastic anemia due to vitamin B12 deficiency Elevated sed rate High total serum IgM Chronic fatigue and malaise JOSE RAFAEL (obstructive sleep apnea) Expected: 10/23/2022, Expires: 12/23/2022[facility] Work Phone: Comment on above:Expected: 10/23/2022, Expires: 12/23/2022Start: 10-23-2022 End: 33-70-9203WXH W Auto Differential panel - BloodCBC + DIFF Lab Routine Megaloblastic anemia due to vitamin B12 deficiency Elevated sed rate High total serum IgM Chronic fatigue and malaise JOSE RAFAEL (obstructive sleep apnea) Expected: 10/23/2022, Expires: 12/23/2022[facility] Work Phone: Comment on above:Expected: 10/23/2022, Expires: 12/23/2022Start: 10-23-2022 End: 92-21-7745Yoyaypdug (Vitamin B12) [Mass/volume] in Serum or PlasmaVITAMIN B12 BLOOD Lab Routine Megaloblastic anemia due to vitamin B12 deficiency Elevated sed rate High total serum IgM Chronic fatigue and malaise JOSE RAFAEL (obstructive sleep apnea) Expected: 10/23/2022,Expires: 12/23/2022[facility] Work Phone: Comment on above:Expected: 10/23/2022, Expires: 12/23/2022Start: 10-23-2022 End: 18-34-0490Gginmdgxqseyk metabolic 2000 panel - Serum or PlasmaCOMP METABOLIC PANEL Lab Routine Megaloblastic anemia due to vitamin B12 deficiency Elevated sed rate High total serum IgM Chronic fatigue and malaise JOSE RAFAEL (obstructive sleep apnea) Expected: 10/23/2022, Expires: 12/23/2022[facility] Work Phone: Comment on above:Expected: 10/23/2022, Expires: 12/23/2022Start: 10-23-2022 End: 63-06-5285Urgqpjjwfao sedimentation rateSED RATE WESTERGREN Lab Routine Megaloblastic anemia due to vitamin B12 deficiency Elevated sed rate High total serum IgM Chronic fatigue and malaise JOSE RAFAEL (obstructive sleep apnea) Expected: 10/23/2022, Expires: 12/23/2022[facility] Work Phone: Comment on above:Expected: 10/23/2022, Expires: 12/23/2022Start: 10-23-2022 End: 81-85-0513Oyjzmez dehydrogenase [Enzymatic activity/volume] in Serum or PlasmaLD LACTATE DEHYDRO Lab Routine Megaloblastic anemia due to vitamin B12 deficiency Elevated sed rateHigh total serum IgM Chronic fatigue and malaise JOSE RAFAEL (obstructive sleep apnea) Expected: 10/23/2022, Expires: 12/23/2022[facility] Work Phone: Comment on above:Expected: 10/23/2022, Expires: 12/23/2022Start: 10-23-2022 End: 35-50-5488GXRMSZYXNI PROTEIN, SERUM (BLOOD)MONOCLONAL PROTEIN, SERUM (BLOOD) Lab Routine Megaloblastic anemia due to vitamin B12 deficiency Elevated sed rate High total serum IgM Chronic fatigue and malaise JOSE RAFAEL (obstructive sleep apnea) Expected: 10/23/2022, Expires: 12/23/2022[facility] Work Phone: Comment on above:Expected: 10/23/2022, Expires: 12/23/2022Start: 10-23-2022 End: 09-67-8906BCNS ELECT SERUM WITH DANA AND INTERPPROT ELECT SERUM WITH DANA AND INTERP Lab Routine Megaloblastic anemia due to vitamin B12 deficiencyElevated sed rate High total serum IgM Chronic fatigue and malaise JOSE RAFAEL (obstructive sleep apnea) Expected: 10/23/2022, Expires: 12/23/2022[facility] Work Phone: Comment on above:Expected: 10/23/2022, Expires: 12/23/2022Start: 09-19-2022 End: 26-16-4023ADO panel - Blood by Automated countCBC Lab Routine Anemia of chronic disease Expected: 09/19/2022 (Approximate), Expires: 08/20/2023[facility] Work Phone: Comment on above:Expected: 09/19/2022 (Approximate), Expires: 08/20/2023Start: 09-19-2022 End: 47-54-2538Gkhjcbmsmspgy metabolic 2000 panel - Serum or PlasmaCOMP METABOLIC PANEL Lab Routine Elevated LFTs Expected: 09/19/2022 (Approximate), Expires: 08/20/2023[facility] Work Phone: Comment on above:Expected: 09/19/2022 (Approximate), Expires: 08/20/2023Start: 09-19-2022 End: 90-06-1550XAYO PHENOTYPE/ENZYME ACTIVITYTPMT PHENOTYPE/ENZYME ACTIVITY Lab Routine Encounter for group home current use of azathioprine Expected: 09/19/2022 (Approximate), Expires: 11/19/2022[facility] Work Phone: Comment on above:Expected: 09/19/2022 (Approximate), Expires: 11/19/2022Start: 08-28-2022 End: 07-84-732305364679-crjuedepdikcyu D3 [Mass/volume] in Serum or PlasmaVITAMIN D 25 HYDROXY Lab Routine Megaloblastic anemia due to vitamin B12 deficiency Elevated sed rate High total serum IgM Chronic fatigue and malaise Expected: 08/28/2022 (Approximate), Expires: 10/28/2022[facility] Work Phone: Comment on above:Expected: 08/28/2022 (Approximate), Expires: 10/28/2022Start: 08-28-2022 End: 16-77-4443Dblh-2-Microglobulin [Mass/volume] in Serum or PlasmaB2 MICROGLOBULIN B Lab Routine Megaloblastic anemia due to vitamin B12 deficiency Elevated sed rateHigh total serum IgM Chronic fatigue and malaise Expected: 08/28/2022 (Approximate), Expires: 07/26/2023[facility] Work Phone: Comment on above:Expected: 08/28/2022 (Approximate), Expires: 07/26/2023Start: 08-28-2022 End: 10-28-2022 reactive protein [Mass/volume] in Serum or PlasmaC-REACTIVE PROTEIN (CRP) Lab Routine Megaloblastic anemia due to vitamin B12 deficiency Elevated sed rate High total serum IgM Chronic fatigue and malaise Expected: 08/28/2022 (Approximate), Expires:10/28/2022[facility] Work Phone: Comment on above:Expected: 08/28/2022 (Approximate), Expires: 10/28/2022Start: 08-28-2022 End: 99-16-0713Btdppmf.ionized [Moles/volume] in BloodCALCIUM IONIZED BLOOD Lab Routine Megaloblastic anemia due to vitamin B12 deficiency Elevated sed rate High total serum IgM Chronic fatigue and malaise Expected: 08/28/2022 (Approximate), Expires: 07/26/2023[facility] Work Phone: Comment on above:Expected: 08/28/2022 (Approximate), Expires: 07/26/2023Start: 08-28-2022 End: 02-88-4224DLW W Auto Differential panel - BloodCBC + DIFF Lab Routine Megaloblastic anemia due to vitamin B12 deficiency Elevated sed rate High total serum IgM Chronic fatigue and malaise Expected: 08/28/2022 (Approximate), Expires: 07/26/2023[facility] Work Phone: Comment on above:Expected: 08/28/2022 (Approximate), Expires: 07/26/2023Start: 08-28-2022 End: 84-50-4647Junlnimde (Vitamin B12) [Mass/volume] in Serum or PlasmaVITAMIN B12 BLOOD Lab Routine Megaloblastic anemia due to vitamin B12 deficiency Elevated sed rate High total serum IgM Chronic fatigue and malaise Expected: 08/28/2022 (Approximate), Expires: 10/28/2022[facility] Work Phone: Comment on above:Expected: 08/28/2022 (Approximate), Expires: 10/28/2022Start: 08-28-2022 End: 41-22-0379Jcwcigmiwqlil metabolic 2000 panel - Serum or PlasmaCOMP METABOLIC PANEL Lab Routine Megaloblastic anemia due to vitamin B12 deficiency Elevated sed rate High total serum IgM Chronic fatigue and malaise Expected: 08/28/2022 (Approximate), Expires: 07/26/2023[facility] Work Phone: Comment on above:Expected: 08/28/2022 (Approximate), Expires: 07/26/2023Start: 08-28-2022 End: 97-90-9183Gxxmygvbujv sedimentation rateSED RATE WESTERGREN Lab Routine Megaloblastic anemia due to vitamin B12 deficiency Elevated sed rate High total serum IgM Chronic fatigue and malaise Expected: 08/28/2022 (Approximate), Expires: 10/28/2022[facility] Work Phone: Comment on above:Expected: 08/28/2022 (Approximate), Expires: 10/28/2022Start: 08-28-2022 End: 91-48-1926TGSCE/FARMER,FREE,SERKAPPA/FARMER,FREE,SER Lab Routine Megaloblastic anemia due to vitamin B12 deficiency Elevated sed rate High total serum IgM Chronic fatigue and malaise Expected: 08/28/2022 (Approximate), Expires: 10/28[facility] Work Phone: Comment on above:Expected: 08/28/2022 (Approximate), Expires: 10/28/2022Start: 08-28-2022 End: 87-12-7631Dpjqnfm dehydrogenase [Enzymatic activity/volume] in Serum or PlasmaLD LACTATE DEHYDRO Lab Routine Megaloblastic anemia due to vitamin B12 deficiency Elevated sed rateHigh total serum IgM Chronic fatigue and malaise Expected: 08/28/2022 (Approximate), Expires: 07/26/2023[facility] Work Phone: Comment on above:Expected: 08/28/2022 (Approximate), Expires: 07/26/2023Start: 08-28-2022 End: 68-52-1872CMBBEUKMVN PROTEIN, SERUM (BLOOD)MONOCLONAL PROTEIN, SERUM (BLOOD) Lab Routine Megaloblastic anemia due to vitamin B12 deficiency Elevated sed rate High total serum IgM Chronic fatigue and malaise Expected: 08/28/2022 (Approximate),Expires: 07/26/2023[facility] Work Phone: Comment on above:Expected: 08/28/2022 (Approximate), Expires: 07/26/2023Start: 08-28-2022 End: 54-94-1571Xbhhruuqd [Mass/volume] in Serum or PlasmaPHOSPHORUS INORGANIC Lab Routine Megaloblastic anemia due to vitamin B12 deficiency Elevated sed rate High total serum IgM Chronic fatigue and malaise Expected: 08/28/2022 (Approximate), Expires: 07/26/2023[facility] Work Phone: Comment on above:Expected: 08/28/2022 (Approximate), Expires: 07/26/2023Start: 08-28-2022 End: 35-00-3558EYWDTMZ ELECTROPHORESIS SERUM W/INTERPPROTEIN ELECTROPHORESIS SERUM W/INTERP Lab Routine Megaloblastic anemia due to vitamin B12 deficiency Elevated sed rate High total serum IgM Chronic fatigue and malaise Expected: 08/28/2022 (Approximate), Expires: 07/26/2023[facility] Work Phone: Comment on above:Expected: 08/28/2022 (Approximate), Expires: 07/26/2023Start: 08-28-2022 End: 76-08-8347Ljmps [Mass/volume] in Serum or PlasmaURIC ACID BLOOD Lab Routine Megaloblastic anemia due to vitamin B12 deficiency Elevated sed rate High total serum IgM Chronic fatigue and malaise Expected: 08/28/2022 (Approximate), Expires: 07/26/2023[facility] Work Phone: Comment on above:Expected: 08/28/2022 (Approximate), Expires: 07/26/2023Start: 07-15-2022 End: 30-09-0534Grxb-2-Microglobulin [Mass/volume] in Serum or PlasmaB2 MICROGLOBULIN B Lab Routine High total serum IgM Expected: 07/15/2022 (Approximate), Expires: 05/20/2023[facility] Work Phone: Comment on above:Expected: 07/15/2022 (Approximate), Expires: 05/20/2023Start: 07-15-2022 End: 35-46-6996Zclnuwd.ionized [Moles/volume] in BloodCALCIUM IONIZED BLOOD Lab Routine High total serum IgM Expected: 07/15/2022 (Approximate), Expires: 05/20/2023[facility] Work Phone: Comment on above:Expected: 07/15/2022 (Approximate), Expires: 05/20/2023Start: 07-15-2022 End: 74-32-6592WDX W Auto Differential panel - BloodCBC + DIFF Lab Routine High total serum IgM Expected: 07/15/2022 (Approximate), Expires: 05/20/2023[facility] Work Phone: Comment on above:Expected: 07/15/2022 (Approximate), Expires: 05/20/2023Start: 07-15-2022 End: 97-09-6285Zwfrxyvzyrpjg metabolic 2000 panel - Serum or PlasmaCOMP METABOLIC PANEL Lab Routine High total serum IgM Expected: 07/15/2022 (Approximate), Expires: 05/20/2023[facility] Work Phone: Comment on above:Expected: 07/15/2022 (Approximate), Expires: 05/20/2023Start: 07-15-2022 End: 75-66-2607NWINJ/FARMER,FREE,SERKAPPA/FARMER,FREE,SER Lab Routine High total serum IgM Expected: 07/15/2022 (Approximate), Expires: 09/14/2022[facility] Work Phone: Comment on above:Expected: 07/15/2022 (Approximate), Expires: 09/14/2022Start: 07-15-2022 End: 00-28-6232Lewvadw dehydrogenase [Enzymatic activity/volume] in Serum or PlasmaLD LACTATE DEHYDRO Lab Routine High total serum IgM Expected: 07/15/2022 (Approximate), Expires: 05/20/2023[facility] Work Phone: Comment on above:Expected: 07/15/2022 (Approximate), Expires: 05/20/2023Start: 07-15-2022 End: 32-14-8006OCAUHPERRP PROTEIN, SERUM (BLOOD)MONOCLONAL PROTEIN, SERUM (BLOOD) Lab Routine High total serum IgM Expected: 07/15/2022 (Approximate), Expires: 05/20/2023[facility] Work Phone: Comment on above:Expected: 07/15/2022 (Approximate), Expires: 05/20/2023Start: 07-15-2022 End: 15-78-8310Chplptqoz [Mass/volume] in Serum or PlasmaPHOSPHORUS INORGANIC Lab Routine High total serum IgM Expected: 07/15/2022 (Approximate), Expires: 1 07/21/2022[facility] Work Phone: Comment on above:Expected: 07/15/2022 (Approximate), Expires: 05/20/2023Start: 07-15-2022 End: 65-20-2473ISZQOYU ELECTROPHORESIS SERUM W/INTERPPROTEIN ELECTROPHORESIS SERUM W/INTERP Lab Routine High total serum IgM Expected: 07/15/2022 (Approx imate), Expires: 05/20/2023[facility] Work Phone: Comment on above:Expected: 07/15/2022 (Approximate), Expires: 05/20/2023Start: 07-15-2022 End: 53-32-3927Owhcv [Mass/volume] in Serum or PlasmaURIC ACID BLOOD Lab Routine High total serum IgM Expected: 07/15/2022 (Approximate), Expires: 05/20/2023 [facility] Work Phone: Comment on above:Expected: 07/15/2022 (Approximate), Expires: 05/20/2023Start: 06-05-2022 End: 188119-omaphjmzjtwuiv D3 [Mass/volume] in Serum or PlasmaVITAMIN D 25 HYDROXY Lab Routine Vitamin D deficiency Expected: 06/05/2022 (Approximate), Expires: 03/05/2023[facility] Work Phone: Comment on above:Expected: 06/05/2022 (Approximate), Expires: 03/05/2023Start: 06-05-2022 End: 03-05-2023 reactive protein [Mass/volume] in Serum or PlasmaC-REACTIVE PROTEIN (CRP) Lab Routine Elevated sed rate Elevated C-reactive protein (CRP) Expected: 06/05/2022 (Approximate), Expires: 03/05/2023[facility] Work Phone: Comment on above:Expected: 06/05/2022 (Approximate), Expires: 03/05/2023Start: 06-05-2022 End: 93-24-7144Jchmmbelg (Vitamin B12) [Mass/volume] in Serum or PlasmaVITAMIN B12 BLOOD Lab Routine Vitamin B12 deficiency Expected: 06/05/2022 (Approximate), Expires: 03/05/2023[facility] Work Phone: [phone] on above:Expected: 06/05/2022 (Approximate), Expires: 03/05/2023Start: 06-05-2022 End: 02-16-4825Zfetwqiwspd sedimentation rateSED RATE WESTERGREN Lab Routine Elevated sed rate Elevated C-reactive protein (CRP) Expected: 06/05/2022 (Approximate), Expires: 03/05/2023[facility] Work Phone: Comment on above:Expected: 06/05/2022 (Approximate), Expires: 03/05/2023Start: 05-06-2022 End: 36-30-7305Rcyv-2-Microglobulin [Mass/volume] in Serum or PlasmaB2 MICROGLOBULIN B Lab Routine Megaloblastic anemia due to vitamin B12 deficiency High total serum IgM Expected: 05/06/2022 (Approximate), Expires: 03/18/2023 [facility] Work Phone: Comment on above:Expected: 05/06/2022 (Approximate), Expires: 03/18/2023Start: 05-06-2022 End: 10-48-2481Xdbvvrc.ionized [Moles/volume] in BloodCALCIUM IONIZED BLOOD Lab Routine Megaloblastic anemia due to vitamin B12 deficiency High total serum IgM Expected: 05/06/2022 (Approximate), Expires: 03/18/2023[facility] Work Phone: Comment on above:Expected: 05/06/2022 (Approximate), Expires: 03/18/2023Start: 05-06-2022 End: 17-49-8795UUA W Auto Differential panel - BloodCBC + DIFF Lab Routine Megaloblastic anemia due to vitamin B12 deficiency High total serum IgM Expec zabrina: 05/06/2022 (Approximate), Expires: 03/18/2023[facility] Work Phone: Comment on above:Expected: 05/06/2022 (Approximate), Expires: 03/18/2023Start: 05-06-2022 End: 84-03-1975Wbyorftiujumh metabolic 2000 panel - Serum or PlasmaCOMP METABOLIC PANEL Lab Routine Megaloblastic anemia due to vitamin B12 deficiency High total serum IgM Expected: 05/06/2022 (Approximate), Expires: 03/18/2023 [facility] Work Phone: Comment on above:Expected: 05/06/2022 (Approximate), Expires: 03/18/2023Start: 05-06-2022 End: 23-93-6858Vztbepeg [Mass/volume] in Serum or PlasmaFERRITIN BLD Lab Routine Megaloblastic anemia due to vitamin B12 deficiency High total serum IgM Exp ected: 05/06/2022 (Approximate), Expires: 03/18/2023[facility] Work Phone: Comment on above:Expected: 05/06/2022 (Approximate), Expires: 03/18/2023Start: 05-06-2022 End: 08-80-7326Eyco and Iron binding capacity panel - Serum or PlasmaIRON + TIBC Lab Routine Megaloblastic anemia due to vitamin B12 deficiency High total serum IgM Expected: 05/06/2022 (Approximate), Expires: 03/18/2023[facility] Work Phone: Comment on above:Expected: 05/06/2022 (Approximate), Expires: 03/18/2023Start: 05-06-2022 End: 51-40-1644Ilrcheg dehydrogenase [Enzymatic activity/volume] in Serum or PlasmaLD LACTATE DEHYDRO Lab Routine Megaloblastic anemia due to vitamin B12 deficiency High total serum IgM Expected: 05/06/2022 (Approximate), Expires: 03/18/2023[facility] Work Phone: Comment on above:Expected: 05/06/2022 (Approximate), Expires: 03/18/2023Start: 05-06-2022 End: 16-69-5425KGSPAXWHOD PROTEIN, SERUM (BLOOD)MONOCLONAL PROTEIN, SERUM (BLOOD) Lab Routine Megaloblastic anemia due to vitamin B12 deficiency High total serum IgM Expected: 05/06/2022 (Approximate), Expires: 03/18/2023[facility] Work Phone: Comment on above:Expected: 05/06/2022 (Approximate), Expires: 03/18/2023Start: 05-06-2022 End: 20-26-8055Xzaawcqhp [Mass/volume] in Serum or PlasmaPHOSPHORUS INORGANIC Lab Routine Megaloblastic anemia due to vitamin B12 deficiency High total serum IgM Expected: 05/06/2022 (Approximate), Expires: 03/18/2023[facility] Work Phone: Comment on above:Expected: 05/06/2022 (Approximate), Expires: 03/18/2023Start: 05-06-2022 End: 62-02-4296YPZKORX ELECTROPHORESIS SERUM W/INTERPPROTEIN ELECTROPHORESIS SERUM W/INTERP Lab Routine Megaloblastic anemia due to vitamin B12 deficiency High total serum IgM Expected: 05/06/2022 (Approximate), Expires: 03/18/2023 [facility] Work Phone: Comment on above:Expected: 05/06/2022 (Approximate), Expires: 03/18/2023Start: 05-06-2022 End: 27-70-8946Zjeik [Mass/volume] in Serum or PlasmaURIC ACID BLOOD Lab Routine Megaloblastic anemia due to vitamin B12 deficiency High total serum IgM Expected: 05/06/2022 (Approximate), Expires: 03/18/2023[facility] Work Phone: Comment on above:Expected: 05/06/2022 (Approximate), Expires: 03/18/2023Start: 52-30-3860UFOQN-19 VACCINE (5 - Pfizer risk series) COVID-19 VACCINE (5 - Pfizer risk series)[facility]: 03-09[facility]2022 End: 59-61-5965Akksatkwmv A1c in BloodHGB A1C Lab Routine Elevated glucose Expected: 03/09/2022, Expires: 05/09/2022[facility] Work Phone: compojw on above:Expected: 03/09/2022, Expires: 05/09/2022tart: 02-24-2022 End: 46-28-6319KRUWIFSLLD AB PANELBARTONELLA AB PANEL Lab Routine Swelling of lymph nodes Expected: 02/24/2022, Expires: 04/26/2022[facility] Work Phone: comysqn on above:Expected: 02/24/2022, Expires: 04/26/2022tart: 02-24-2022 End: 15-75-0695SJLRASPT AB TOTALBRUCELLA AB TOTAL Lab Routine Swelling of lymph nodes Expected: 02/24/2022, Expires: 04/26/2022[facility] Work Phone: comxzch on above:Expected: 02/24/2022, Expires: 04/26/2022tart: 02-24-2022 End: 47-73-2033Xngpixfcsdhd sp Ag [Presence] in Unspecified specimen by Latex agglutinationCRYPTOCOCCUS AG DET Microbiology Routine Swelling of lymph nodes Expected: 02/24/2022, Expires: 04/26/2022[facility] Work Phone: comment on above:Expected: 02/24/2022, Expires: 04/26/2022tart: 02-24-2022 End: 81-89-2409LKRNCPBOOJI AG URINEHISTOPLASMA AG URINE Lab Routine Swelling of lymph nodes Expected: 02/24/2022, Expires: 04/26/2022[facility] Work Phone: comment on above:Expected: 02/24/2022, Expires: 04/26/2022tart: 02-24-2022 End: 38-31-3862HCS 1 RNA [#/volume] (viral load) in Serum or Plasma by YESSI with probe detectionHIV RNA VIRAL LOAD Lab Routine Swelling of lymph nodes Expected: 02/24/2022, Expires: 04/26/2022[facility] Work Phone: comguax on above:Expected: 02/24/2022, Expires: 04/26/2022tart: 02-24-2022 End: 48-26-1019NIZCWPVY TOTAL W/REFLEXSYPHILIS TOTAL W/REFLEX Lab Routine Swelling of lymph nodes Expected: 02/24/2022, Expires: 04/26/2022[facility] Work Phone: comment on above:Expected: 02/24/2022, Expires: 04/26/2022tart: 16-86-1134Faqphghad vaccinationKettering Health Springfieldtart: 80-52-9889MEUNQ-19 VACCINE (4 - Booster for Pfizer series)COVID-19 VACCINE (4 - Booster for Pfizer series)[facility]: 77-29-0035Gysjfdjsx vaccination Flu vaccine (Season Ended)[facility] Work Phone: start: 46-03-2133Vpwuv panelAkron Children's Hospitaltart: 02-54-4495VdbkcycnmdcNmkfuulye ClinicStart: 59-45-1305Aqhtalece for malignant neoplasm of breastK[facility]tering Health Springfieldtart: 35-41-5650HXU TESTINGHPV TESTING [facility]: 44-62-0436Anpvxcdxu for malignant neoplasm of cervix [facility]: 32-76-6245XRW VACCINE (1 - 3-dose SCDM series)HPV VACCINE (1 - 3-dose SCDM series)[facility]: 65-30-1436VVR Vaccine (1 - Risk 3-dose SCDM series)HPV Vaccine (1 - Risk 3-dose SCDM series)[facility]: 53-14-5562CKnY/Tdap/Td Vaccines (1 - Tdap)DTaP/Tdap/Td Vaccines (1 - Tdap)[facility] HospitalStart: 88-98-8925ZRW TESTINGPAP TESTING [facility]: 30-06-4449Xipojokwg for malignant neoplasm of cervix [facility]: 79-95-1796FNuU,Tdap and Td Vaccines (1 - Tdap)DTaP,Tdap and Td Vaccines (1 - Tdap)ProMPrairie View Psychiatric Hospitaltart: 32-56-0448IRpD/Tdap/Td vaccine (1 - Tdap)DTaP/Tdap/Td vaccine (1 - Tdap)[employer] Phone: start: 33-78-0589Pndycgkow B vaccinationHEP B VACCINE (1 of 3 - 19+ 3-dose series)[facility]: 43-33-9718Kxajnnzwc B Vaccine (1 of 3 - 19+ 3-dose series)Hepatitis B Vaccine (1 of 3 - 19+ 3-dose series)[facility]: 57-57-2072Ashhupsgq B Vaccines (1 of 3 - 19+ 3- dose series)Hepatitis B Vaccines (1 of 3 - 19+ 3-dose series)[facility] HospitalStwinters: 17-33-4734Dbgwjmkmqebt vaccinationPneumococcal Vaccine (1 of 2 - PCV)[facility]: 42-46-6967Whwlpupecigp Vaccine: Pediatrics and At-Risk Adult Patients (1 of 2 - PCV)Pneumococcal Vaccine: Pediatrics and At-Risk Adult Patients (1 of 2 - PCV)[facility] HospitalStwinters: 18-05-1941SSEOOKZI VACCINE (1 of 2)SHINGRIX VACCINE (1 of 2) [facility]: 84-09-2712Oaeyy diphtheria, tetanus and acellular pertussis (DTaP) vaccinationTDAP (ADULT)[facility]: 10-05-1999 Urine microalbumin profileKettering Health Springfieldtart: 00-37-2818Veamvs Vaccines (1 of 2)Zoster Vaccines (1 of 2)[facility] HospitalStwinters: 1998 Adult BMI Follow Up PlanAdult BMI Follow Up PlanFrye [facility] Medical Center Alexander Campustart: 35-62-5539Vqnyu BMI ScreeningAdult BMI ScreeningFrye Regional Medical Center Alexander Campustart: 47-07-7687Fgzepeg ScreeningAnxiety ScreeningKettering Health Springfieldtart: 1998 Hepatitis C screeningHepatitis C ScreeningUnSelect [facility] Start: 53-20-4974NML SCREENINGHIV SCREENINGKettering Health Springfieldtart: 74-86-7197BOL screeningHIV ScreeningKettering Health Springfieldtart: 45-97-3710CFK screeningAkron Children's Hospitaltart: 16-76-8966Kskfwrswc vaccinationVaricella Vaccines (1 of 2 - 13+ 2- dose series)[facility]: 57-99-9594YCTKU-19 Vaccine (1)COVID-19 Vaccine (1)[employer] Phone: start: 31-07-9719Rrnpbfhyin ScreeningDepression ScreeningFrye [facility] Medical Center Alexander Campustart: 68-01-4845Dnuwwbd ScreeningTobacco ScreeningFrye Regional Medical Center Alexander Campustart: 24-10-8389Aumqvefih for malignant neoplasm of cervixCervical Cancer ScreeningKettering Health Springfieldtart: 1986 PNEUMOCOCCAL (1 - PCV)PNEUMOCOCCAL (1 - PCV)[facility]: 1986 Pneumococcal vaccinationKettering Health Springfieldtart: 58-06-2310Zjghyfzwrccm Vaccine: Pediatrics (0 to 5 Years) and At-Risk Patients (6 to 64 Years) (1 - PCV) Pneumococcal Vaccine: Pediatrics (0 to 5 Years) and At-Risk Patients (6 to 64 Years) (1 - PCV)[facility]: 08-59-5015CQQ Vaccines (1 of 1 - Standard series)MMR Vaccines (1 of 1 - Standard series)[facility]: 63-57-4690Pdwtjtqrk vaccinationVaricella Vaccines (1 of 2 - 2-dose childhood series)[facility]: 99-70-1409Ypjysesxr vaccine (1 of 2 - 2-dose childhood series)Varicella vaccine (1 of 2 - 2-dose childhood series)[employer] Phone: start: 07-12-7478SBVKPLCJS B (1 of 3 - 3-dose series) HEPATITIS B (1 of 3 - 3-dose series)[facility]: 40-71-1961Rnlloqmhb B Vaccine (1 of 3 - 3-dose series)Hepatitis B Vaccine (1 of 3 - 3-dose series) [facility]: 23-61-8358Umkfbhiqy B Vaccines (1 of 3 - 3-dose series) Hepatitis B Vaccines (1 of 3 - 3-dose series)[facility] Start: 25-43-5708Fcoxejwev C screeningAkron Children's Hospitaltart: 98-81-2881TZB screeningHIV ScreeningMercy Health Kings Mills HospitalStart: 53-62-8302VEF Vaccine: Recommended Based On RiskHPV Vaccine: Recommended Based On Risk [facility]: 50-02-5584Xjiyj panelLipid PanelMercy Health Kings Mills HospitalStart: 96-69-4853Zjufsxgkh for osteoporosisBone Density ScanOhioHealth Southeastern Medical Center: 72-72-3719Olnobik vaccinationTETANUSAMcKitrick Hospital SystemStart: 33-07-2882Ckmehxx CounselingTobacco CounselingCleveland Clinic SystemStart: 17-42-9478Azdfsr Adult PhysicalYearly Adult PhysicalMercy Health Kings Mills Hospital25-hydroxyvitamin D3 [Mass/volume] in Serum or Plasma VITAMIN D 25 HYDROXY Lab Routine Vitamin D deficiency 01/11/2025 1:48 PM EDT [facility] HospitalAEROBIC CULTUREAEROBIC CULTURE Lab Routine 03/02/2025 5:[facility]: ANAEROBIC CULTUREANAEROBIC CULTURE Lab Routine 03/02/2025 5:17 PM EDLeConte Medical CenterBacteria identified in Unspecified specimen by Aerobe cultureCleveland Clinic Marymount HospitalBacteria identified in Unspecified specimen by Anaerobe cultureCleveland Clinic Marymount HospitalBLOOD TB SCREENBLOOD TB SCREEN Lab Routine Screening-pulmonary TB 01/11/2025 1:48 PM EDTCleveland ClinicC reactive protein [Mass/volume] in Serum or PlasmaC-REACTIVE PROTEIN Lab Routine Elevated sed rate Elevated C-reactive protein (CRP) 01/11/2025 1:48 PM EDTCleveland ClinicCardiovascular function eval w/tilt table w/mntrTILT TABLE EVALUATION Cardiology Routine POTS (postural orthostatic tachycardia syndrome) Ordered: 03/09/2022[facility] Work Phone: comment on above:Ordered: 03/09/2022BC W Auto Differential panel - BloodCBC and differential Lab Routine Menorrhagia with regular cycle Ordered: 03/23/2024[facility] [employer] Work Phone: comment on above:Ordered: 03/23/2024hronic hepatitis differentiation between hepatitis B and C virus panel - Serum or PlasmaHEP REMOTE PANEL BL Lab Routine Elevated LFTs 01/11/2025 1:48 PM EDTClevelcarolinas [facility]care [facility] Cobalamin (Vitamin B12) [Mass/volume] in Serum or PlasmaVITAMIN B12 Lab Routine Vitamin B12 deficiency 01/11/2025 1:48 PM EDTCleveland ClinicCT Abdomen W contrast [facility] End: 16-25-5678HKB-AXIAL SKELETONDXA-AXIAL SKELETON Radiology Routine Steroid- induced osteoporosis 1 Occurrences starting 02/04/2023until 03/05/2024[facility] Work Phone: Comment on above:1 Occurrences starting 02/04/2023 until 03/05/2024 End: 73-45-2594AEG-FOREARM SKELETONDXA-FOREARM SKELETON Radiology Routine Steroid-induced osteoporosis 1 Occurrences starting 02/04/2023 until 03/05/2024 [facility] Work Phone: Comment on above:1 Occurrences starting 02/04/2023 until 03/05/2024ECG 12 LeadECG 12 Lead ECG Routine Irregular heart rate 06/09/2023 8:28 AM [facility] Work Phone: Erythrocyte sedimentation rateSEDIMENTATION RATE, WESTERGREN Lab Routine Elevated sed rate Elevated C-reactive protein (CRP) 01/11 1:48 PM [facility] Work Phone: hCG, quantitative, pregnancyhCG, quantitative, Lab Routine Menorrhagia with regular cycle Ordered: 03/23/2024[facility] HealthcareComment on above:Ordered: 03/23/2024Hemoglobin A1c/Hemoglobin.total in BloodHemoglobin A1c Lab Routine Menorrhagia with regular cycle Ordered: 03/23/2024[facility] HealthcareComment on above:Ordered: 03/23/2024Hepatitis B virus core Ab [Presence] in SerumHEPATITIS B CORE ANTIBODY TOTAL Lab Routine Elevated LFTs 01/11/2025 1:48 PM EDTCleveland ClinicHepatitis B virus surface Ab [Presence] in SerumHEPATITIS B SURFACE ANTIBODY Lab Routine Elevated LFTs 01/11/2025 1:48 PM EDTCleveland ClinicHepatitis B virus surface Ag [Presence] in SerumHEPATITIS B SURFACE ANTIGEN Lab Routine Elevated LFTs 01/11/2025 1:48 PM EDMetroHealth [facility] Campus Medical Centerpatitis C virus Ab [Presence] in SerumHEPATITIS C ANTIBODY IA WITH CONFIRMATION Lab Routine Elevated LFTs 01/11/2025 1:48 PM [facility] End: 52-96-1132GFYE SLEEP APNEA TEST (HSAT)HOME SLEEP APNEA TEST (HSAT) Procedures Routine Somnolence, daytime Snoring 1 Occurrences starting 03/09/2022 until 3CSt[facility] Work Phone: comment on above:1 Occurrences starting 03/09/2022 until 03/09/2023HYDROGEN BREATH TEST B/OHYDROGEN BREATH TEST B/O Procedures Routine Diarrhea, unspecified type Abdominal pressure Ordered: 06/14/2024[facility] Work Phone: comment on above:Ordered: 06/14/2024Oxygen therapy [Minimum Data Set]Initiate Oxygen Therapy Protocol Respiratory Care Routine Daily until discontinued starting 10/07/2020[facility] Work Phone: comment on above:Daily until discontinued starting 10/07/2020atient EducationPromedica Defiance [facility] Work Phone: Patient referralPromedica Defiance Regional Hospital [facility]tr Work Phone: End: 77-93-7124ZufprczajyxrfKEXYOCCQAJSSS (PSG) Procedures Routine Somnolence, daytime Snoring 1 Occurrences starting 03/04/2022 until 03/04/2023[facility] Work Phone: Comment on above:1 Occurrences starting 03/04/2022 until 03/04/2023rothrombin time (PT) in Blood by Coagulation assayProtime-INR Lab Routine Menorrhagia with regular cycle Ordered: 03/23/2024[facility] Comment on above:Ordered: 03/23/2024THIN PREP TIS PAP AND HR HPV DNATHIN PREP TIS PAP AND HR HPV DNA Pathology and Cytology Routine Well woman exam with routine gynecological exam Ordered: 06/06/2024[facility] HealthcareComment on above: Ordered: 06/06/2024Thyrotropin [Units/volume] in Serum or PlasmaTSH Lab Routine Menorrhagia with regular cycle Ordered: 03/23/2024[facility] HealthcareComment on above:Ordered: 03/23/2024Thyroxine (T4) free [Mass/volume] in Serum or PlasmaT4, free Lab Routine Menorrhagia with regular cycle Ordered: 03/23/2024[facility] HealthcareComment on above:Ordered: 03/23/2024XR Thoracic spine 3 [facility] Immunizations Immunization DateImmunizationNotesCare DppmrmfaCojifzli08-56-7939TJXLF-80 vaccine, age 12+ yr, season (PFIZER-BIONTCard[employer])Lynne Ni MD Work Phone: [facility] HospitalSefnmi29-22-3860PWREV-93 mRNA Bivalent Booster (Pfizer)[employer] Work Phone: [facility]01-03-2022COVID-19 mRNA, Comirnaty (Pfizer)[employer] Work Phone: [facility]05-29-2021COVID-19 mRNA, Comirnaty (Pfizer)[employer] Work Phone: [facility]05-08-2021COVID-19 mRNA, Comirnaty (Pfizer)[employer] Work Phone: [facility] Payers DatePayer CategoryPayerPoly [id number] [facility] [place] [facility] [id number] 2017Medicaid (Managed Care) [id number] Health InsuranceUP [facility] SYSTEM MEDICAID Member Subscriber Plan / Payer (Effective 2017-Present) Name: Ariadna Haley Relation to Subscriber: Self Name: hugo Ariadna Torres Payer ID: Not on file Group ID: [id number] Type: Not on file Address: [address] [place] [id number] [facility] [id number] 2017-Present [address] [place] [id number] 2010MedicaidCARESOURCECARESOURCE MEDICAID CARESOURCE MEDICAID [id number] 2009-Present [phone] [address] [place] [address] [id number] 2010Medicaid [id number] 2.16840.1.247728.3.57[id number] 2.16840.1.486536.3.57[id number] 2.840.1.717849.3.57[id number] 2.840.1.201379.3.57[id number] 2.840.1.317108.3.57[id number] 2.840.1.099263.3.57[id number] 2.840.1.646625.3.579.2.84185-38-1536Hlahvsi2893674 2.840.1.809907.3.579.[id number] 2.840.1.084517.3.579.2.92471-95-2649Lfspnpm6373710 2.840.1.979969.3.579.2.20710-19-5528Yfidqrk9382419 2.840.1.863700.3.57[id number] 2.840.1.457292.3.579.[id number] 2.16840.1.016349.3.579.2.785427-61-6140Nqzgivh08524588 2.840.1.637867.3.579.2.[id number] 2.0.1.065281.3.579.2.287596-86-5084Qgoqwaj13516326 2..1.199905.3.579.2.489667-03-4262Olupnvz20156756 2.0.1.287795.3.579.[id number] 2..1.453590.3.579.2.194353-27-9133Nzygema3044646 2..1.238930.3.579.2.235797-48-1381Aanvlea2029826 2..1.579354.3.579.2.878304-41-8140Ujhzelp2698770 2..1.223569.3.579.2.274120-20-1651Errgvxg4856336 2..1.834506.3.579.2.468550-16-9602Ccnwlgq1388288 2..1.738863.3.579.2.408751-84-1641Epnnnub4494217 2..1.276064.3.579.2.475963-27-9947Rgwdsau0319131 2..1.794710.3.579.2.410279-04-9243Iysqtsp87214836 2..1.767309.3.579.2.10270-67-3747Chalicg2745390625610-44-5993Yhtazed [id number] 2.0.1.577736.3.579.2.632Ubxnpxe61274024 2.0.1.637495.3.579.2.953Fypvpnh75787961 2.16.840.1.340801.3.579.2.531 [id number] 2.16.840.1.690229.3.579.2.173Hxpgoas45773361 2.16.840.1.86[id number] 2.16.840.1.828601.3.579.2.531 Aoqlqwe98073165 2.16.840.1.296951.3.579.2.531 Social History DateTypeDetailFacilityStart: 10-07-2020 End: 56-92-2117Hvydngt smoking status NHISCurrent every day smokerKettering Health Springfieldtart: 10-07-2020 End: 66-69-7292Qljocwt use and exposureNever usedSelect Medical Specialty Hospital [facility] SouthStart: 10-07-2020 End: 08-17-2065Wlkusya intakeLifetime non-drinker (finding)[employer] Phone: start: 85-87-3395Pushvzh SDOH Alcohol Limmakieb1Xfxjv Health Work Phone: start: 34-35-4819Udv Assigned At BirthNot on [facility] Psychiatric HospitalTxtFeedback Phone: start: 02-22-2022 End: 73-02-6342Wfhzyuuc to SARS-CoV-2 (event)Not sureSelect Medical Specialty Hospital - [facility] SouthStart: 17-34-5990Upqovyv of tobacco useCigarette SmokerKettering Health Springfieldtart: 05-31-2014 End: 85-93-1685Lgynjjfpkk smoked current (pack per day) - Xhqbhmiv7Kskxybjbt ClinicStart: 10-24-2021 End: 28-28-7309Hnrnhtd intakeCurrent non-drinker of alcohol (finding)[facility]: 10-14-2021 End: 50-49-3315Sessknlv to SARS-CoV-2 (event)Unable to assessSelect Medical [facility] Rehabilitation Hospital Start: 10-22-2022 End: 00-98-5091Bbf Assigned At BirthK[facility]tering Health Springfieldtart: 93-80-9006Eeken Depression Screening Cwzycpkqxz4Rlybkcsva ClinicStart: 91-91-8573Ieohbjd Comment Current smoker, everyday, 11-20 cigarettes/dayNOMD HealthcareStart: 05-31-2023 Alcohol CommentCaffeine intake : > 4 cups per dayDELTA COMMUNITY MEDICAL [facility]ENTER HealthcareStart: 08-19-2016 End: 31-48-0506Dhhptnl smoking status NHISSmoker (finding)[facility] Centertart: 50-92-4385Hcc Assigned At [facility] Healthtart: 07-02-2016 End: 06-01-9562MaiQcfmsy (finding)[facility] Alexander Campustart: [id number] identityIdentifies as female gender (finding)[facility] Goals DatePatient GoalDesired Activity/State Functional Status Ab[id number] you deaf, or do you have serious difficulty hearingNo 12/25/2014 11:14 AM Chichi Womack Ma [facility] [id number] you blind, or do you have serious difficulty seeing, even when wearing glassesNo 12/25/2014 11:14 AM Chichi Womack [facility]08-04-2015Do you have serious difficulty walking or climbing stairsYes 12/25/2014 11:14 AM Chichi Womack [facility]08-04-2015Do you have difficulty dressing or bathingYes 12/25/2014 11:14 AM [facility]ichi [facility]ack [facility] [id number] of a physical, mental, or emotional condition, do you have difficulty doing errands alone such as visiting a physician's office or shoppingNo 12/25/2014 11:14 AM Chichi Womack [facility] Status Ovlz[id number] of a physical, mental, or emotional condition, do you have serious difficulty concentrating, remembering, or making decisionsNo 12/25/2014 11:14 AM Chichi Womack Ma [facility] Clinical Notes 05-31-2014 to 03-14-2025 Note Date & [id number] History of Present illness Narrative* Stacy Madrid [...] with abscess/Referralfrom Dr. Gay De La Torre- [facility]. 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 Ongoing [...] hydroxychloroquine, steroids pred 10 mg po daily ([facility]) Hx of 12/2024: Tb and HBV [...] Insecurity: No Food Insecurity (04/06/2024) Received from [facility] Hunger Screening Within the past 12 [...] Personal Safety: Unknown (07/15/2023) Received from [facility] Safety & Environment Fear of [...] - Patient has follow up by Rheumatology [facility] in his on prednisone, hydroxychloroquine and Benlysta Opportunistic infection screening - Patient did have hepatitis-C, hepatitis-B and TB testing. 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 Thank you for this consultation. Please note Portions of this note utilized [employer] dictation software, please excuse any typographical or [...] daily., Disp: , Rfl: Ergocalciferol 1.25 MG (78608 UT) capsule, Take 1 capsule by mouth [...] 2 times daily., Disp: , Rfl: Nystatin [id number] UNIT/ML oral suspension, Swish and spit 4 [...] Other., Disp: , Rfl: documented in this [facility]10-08-2025 History of Present illness Narrative* [...] and also on prednisone. She follows with [facility] rheumatology and also with [facility] sawyer tology/oncology. She states she does [...] Chronic laryngopharyngitis COVID-19 vaccine administered x 2 ([employer]) Difficulty walking Fatigue Fibromyalgia, primary GERD (gastroesophageal [...] her dressing changes at documented in this encounterMissouri Delta Medical CenterDlnxjgipjv91-38-0430 NoteMckitrick Hospital10-01-2025 NoteMckitrick Hospital09-24-2025 History of Present illness Narrative* Bernabe [...] treatment with ILK today. ILK today, see [facility] for details. Consent: The risks and benefits of intralesional kenalog were discussed prior to the procedure. Specifically, the risk of skin atrophy was reviewed. It was also emphasized that multiple treatments may be necessary. Verbal consent was obtained from the patient/parent. Method: See [facility] for details on administration. 0.1 [...] Next Visit: as scheduled documented in this encounterMissouri Delta Medical CenterQitnxlylev38-88-2710 NoteMckitrick Hospital09-03-2025 History of Present illness Narrative* Elena Alfonso RN - 01/24/2025 3:40 PM EDT Pt did not receive B12 injection today. Pt called & agreeable to receive it when she returns in2 weeks for her Benlysta infusion. Pharmacy aware and moving date. Elena Alfonso RN documented in this encounterSelect Medical [facility]08-28-2025 Telephone encounter Note * Telephone Encounter - Merry Chairez RN - 01/18/2025 5:09 PM EDT MC message read by patient . [facility]08-28-2025 Miscellaneous Notes* Telephone Encounter - Merry [...] IV, start prior authorization documented in this encounterSelect Medical Trihealth Rehabilitation Hospital08-28-2025 Telephone encounter Note * Telephone Encounter - Lynne Ni MD - 01/18/2025 3:34 PM EDT Please Call patient if Predictifyhart note not read to review results/released to [...] sq benlysta to IV, start prior authorization [facility]08-27-2025 Chief complaint+Reason for visit Narrative* Chief [...] :50am Sacroiliitis March 13, 2025 8 :50am [facility] Work Phone: 1(256) 110-939608-27-2025 Evaluation note* Diagnosis Onset Date Resolution Status Admit Date Lumbosacral spondylosis acuteAugust 2024 10:29amOther chronic painacuteAugust 2024 10:29am SacroiliitisacuteAugust 2024 10:29amLumbosacral spondylosisacuteSeptember 2024 9:23amMid back painacuteSeptember 2024 9:23amOther chronic pain acuteSeptember 2024 9:23amSacroiliitisacuteSeptember 2024 9:23am Abdominal pressureacuteOctober 2024 1:29pmDyspepsiaacuteOctober 2024 1:29pmFatty liveracuteOctober 2024 1:29pmGERD (gastroesophageal reflux disease)acuteOctober 2024 1:29pmLumbosacral spondylosisacuteOct2024 8:50amOther chronic painacuteOctober 2024 8:50amSacroiliitisacute October 2024 8:50am [facility] Work Phone: 1([phone]) 915-571807-24-2025 NoteHNO ID: [id number] Author: JHONATHAN CONDE RN Service: ? Author Type: Registered Nurse Type: Progress Notes Filed: 12/14/2024 16:36 Note Text: Ran over 2 hours per patient request.[facility]07-24-2025 History of Present illness Narrative* Jhonathan Conde RN - 12/14/2024 3:58 PM EDT Ran over 2 hours per patient request. documented in this encounterSelect Medical Trihealth Rehabilitation Hospital07-24-2025 NoteMckitrick Hospital07-24-2025 History of Present illness Narrative* Ama Esparza - 12/14/2024 11:03 AM EDT CMN RECEIVED BY [employer] [facility] VIA FAX, COMPLETED, AND PLACED IN PROVIDER MAILBOX FOR SIGNATURE Ama Esparza Sole Stitcher [employer] SENDING CMN: Josh SIGNED AND DATED CMN, FAXED TO DME & CONFIRMATION PAGE RECEIVED: 12.14.2024 documented in this encounterSelect Medical Trihealth Rehabilitation Hospital07-22-2025 Evaluation note* Diagnosis Onset Date Resolution [...] 2024 1:29pmGERD (gastroesophageal reflux disease)acuteOctober 2024 1:29pm [facility] Work Phone: 1(138) 951-707807-10-2025 Evaluation note* Diagnosis Onset Date Resolution Status Admit Date Lumbosacral spondylosis acuteJuly 2024 9:03amOther chronic painacuteJuly 2024 9:03am SacroiliitisacuteJuly 2024 9:03amAbdominal burning sensation in left upper quadrantacuteJuly 2024 10:42amAbdominal massacuteJuly 2024 10:42am Abdominal painacuteJuly 2024 10:42amBloatingacuteJuly 2024 10:42am ConstipationacuteJuly 2024 10:42amDyspepsiaacuteJuly 2024 10:42am Lumbosacral spondylosisacuteAugust 2024 10:29amOther chronic painacute Eldon 2024 10:29amSacroiliitisacuteAugust 2024 10:29amLumbosacral spondylosisacuteSeptember 2024 9:23amMid back painacuteSeptember 2024 9:23amOther chronic painacuteSeptember 2025 9:23amSacroiliitisacute February 14, 2025 9:23am [facility] Work Phone: 1(376) 688-971107-10-2025 Telephone encounter Note* Telephone Encounter - Enma Hamm RN - 11/30/2024 8:36 AM EDT Pt updated on results. Will continue with IVIG, as previously scheduled. Denied further needs or concerns at this time. Enma Hamm RN [facility]07-10-2025 Miscellaneous Notes* Telephone Encounter - Enma Hamm RN - 11/30/2024 8:36 AM EDT Pt updated on results. Will continue with IVIG, as previously scheduled. Denied further needs or concerns at this time. Enma Hamm RN documented in this encounterSelect Medical Trihealth Rehabilitation Hospital07-09-2025 NoteMckitrick Hospital07-09-2025 History of Present illness Narrative* Vaibhav Carvalho APRN.OFFICE SERVICES ASSISTANT - 11/29/2024 8:43 AM EDT Images from the original note were not included. NAME: TeraAriadna [facility] NO.: [id number] DATE OF SERVICE: .November 29, 2024 (Deven) [...] to monitor; no current intervention required per [facility] recommendations. 7. Pre-diabetes (R73.03) Borderline diabetic. [...] requiring a recent corticosteroid injection by her trimmer sawyer. She experiences intermittent fatigue, shortness of breath, [...] lower lip done 2 days ago at [facility] - awaiting results. B12 [...] injections. Shefollows with multiple doctors including and pigment pusher, veterinary surgery technician, trimmer sawyer and PCP. She has been told they [...] subcutaneously one time a week. Per PCP lvaneuxaogVOSXX-lnmhop-lthsrkoeb (BMX 1:1:1) 1:1:1 liqd Take 5 mL [...] (Crohn's [Other]) Mother . Vaibhav Carvalho APRN, FILM COATER-C, [facility] H[facility]ology [facility] Oncology Services Provided at: [place], [place] CC: Manuel Ferris MD [address] [facility] [address] documented in this encounterSelect Medical Trihealth Rehabilitation Hospital07-03-2025 History of Present illness Narrative* KELVIN [...] Next Visit: as scheduled documented in this encounterMissouri Delta Medical CenterEmmsfkunkd92-06-3062 Telephone encounter Note* Telephone Encounter - Renea Schneider MA - 11/20/2024 12:00 PM EDT Patient coming in for treatment visit Wednesday11/29/24. Please add lab orders. thanks. Renea Schneider MA [facility]06-23-2025 Chief complaint+Reason for visit Narrative* Chief [...] :29am Sacroiliitis January 17, 2025 10 :29am [facility] Work Phone: 1(786) 885-518206-23-2025 Chief complaint+Reason for visit Narrative * Chief [...] Sacroiliitis January 17, 2025 10 :29am [facility] Work Phone: 1(203) 359-617506-23-2025 Evaluation note* Diagnosis Onset Date Resolution Status Admit Date Lumbosacral spondylosis acuteJune 2024 11:15amOther chronic painacuteJune 2024 11:15am SacroiliitisacuteJune 2024 11:15amLumbosacral spondylosisacuteJuly 2024 9:03amOther chronic painacuteJuly 2024 9:03amSacroiliitisacuteJuly 2024 9:03amAbdominal burning sensation in left upper quadrantacuteJuly 2024 10:42amAbdominal massacuteJuly 2024 10:42amAbdominal painacute Day 2024 10:42amBloatingacuteJuly 2024 10:42amConstipationacuteJuly 2024 10:42amDyspepsiaacuteJuly 2024 10:42amLumbosacral spondylosis acuteAugust 2024 10:29amOther chronic painacuteAugust 2024 10:29am SacroiliitisacuteAugust 2024 10:29am [facility] Work Phone: 1(874) 204-212405-17-2025 History of Present illness Narrative* Lynne Ni [...] visit. Either the patient or their legal chemical sales representative has been informed of the [...] metoprolol for POTs, avoid aggravating triggers, terminal computer operator pain recommendations per primary [...] metoprolol for POTs, avoid aggravating triggers, terminal computer operator pain recommendations per primary [...] see GI and Infectious disease soon. Thinks [facility] made her have diarrhea. 08/31/23 high wbc [...] metoprolol for POTs, avoid aggravating triggers, terminal computer operator pain recommendations per primary [...] Due for eye exam. 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 reStart azathioprine [...] video & audio (virtual) or phone or vhwm-pd-tdov patient care, completing clinical documentation, obtaining and/or [...] Workers' Compensation? No Do you need an computer systems architect? No [facility] MYCHART ZOOM MESSAGE Question 10/06/2024 9:06 [...] Strongly Agree documented in this encounterSelect Medical Trihealth Rehabilitation Hospital05-17-2025 NoteMckitrick Hospital05-17-2025 Instructions* Patient Instructions* Lynne Ni MD [...] (200mg) daily with a meal Please see cable placer every 6-12months while on Hydroxychloroquine. azathioprine daily [...] your usual activities immediately. documented in this encounterSelect Medical Trihealth Rehabilitation Hospital05-16-2025 Telephone encounter Note * Telephone Encounter - Beatriz Sanchez LPN - 10/06/2024 1:46 PM EDT VM left that below message forwarded to her MC. Requested return call if unable to view message. [facility]05-16-2025 Miscellaneous Notes* Telephone Encounter - Beatriz Sanchez LPN - 10/06/2024 1:46 PM EDT VM left that below message forwarded to her MC. Requested return call if unable to view message. * Telephone Encounter - Lynne Ni MD - 10/06/2024 1:02 PM EDT Please Call patient if MyChart note not read to review results/released to My Chart if tests completed at [facility]: Mildly glucose, one borderline inflammatory test- [...] Ni MD documented in this encounterSelect Medical Trihealth Rehabilitation Hospital05-16-2025 Telephone encounter Note * Telephone Encounter [...] above. Please process accordingly. Lynne Ni MD [facility]04-30-2025 NoteMckitrick Hospital04-30-2025 Note [facility]04-29-2025 History of Present illness Narrative* Deborah Arroyo, LOCATED WITHIN [facility] - 09/19/2024 10:00 AM EDT Patient [...] GENETIC TESTING: None. SOCIAL HISTORY: Lives in [place], [place] with her and daughter. 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 - Partner's ethnicity: not applicable. - No known -German, Mediterranean, /Colombian, Gibraltarian-Guamanian/Cajun, or Ashkenazi Methodist ancestry unless noted above. - Parental consanguinity: [...] via the connective tissue disorder panel at [facility] for Ariadna's daughter. Follow up will be [...] greater than 50% of which was spent xipf-ls-igom counseling. This plan is being carried out per Dr. Lance's recommendations. Deborah Arroyo MS, [facility] Licensed Genetic Counselor [facility] CC: Dr. Last Lance CC: Ariadna Haley Via [employer] documented in this encounterSelect Medical Trihealth Rehabilitation Hospital04-29-2025 NoteMckitrick Hospital04-29-2025 NoteMckitrick Hospital04-29-2025 History of Present illness Narrative* Ny Lance MD - 09/19/2024 7:46 AM EDT Images from the original note were not included. Department of Medical Genetics and Genomics OUTPATIENT NEW VISIT NOTE Recording using [employer] software for draft documentation of the visit was discussed with the patient/authorized chemical sales representative; all questions welcomed and answered. Patient/authorized chemical sales representative agreed to proceed Patient Name: [...] has a history of using a palate plasterer spray gun. She reports delayed wound healing, possible hyperextensible [...] Gangrene - 02/04/2023 Steroid-Induced Osteoporosis - 02/04/2023 Snf Current Use of Systemic Steroids - 02/04/2023 [...] subcutaneously one time a week. Per PCP dfkvsfufpdPTGWF-lfmqsx-uveiozdgf (BMX 1:1:1) 1:1:1 liqd Take 5 mL [...] OF ablation SOCIAL HISTORY: - Lives in [place], [place] with her and daughters. - Highest level of education: High school. 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 Paternal - . - No known -German, Mediterranean, /Colombian, Ashkenazi Methodist, Gibraltarian-Guamanian/Cajun, or Mandaen ancestry unless noted above. - Parental consanguinity: [...] pedigree was collected by Deborah Arroyo MS, [facility] at the patient's separate genetic counseling encounter. The pedigree will be scanned into [employer]. This information was reviewed with thefamily and [...] Management For Physiotherapists by Katarina Reza (Eds.), [facility], 2003, ISBN [id number]; Examination and Treatment of a Patient with [...] symptoms when present, recommending follow-up with a electron microprobe operator. 2. Chronic pain syndrome (G89.4) Chronic joint [...] 87 minutes was spent with patient for fbez-nh-vhsp evaluation, discussion of genetic differential diagnoses, management plan, counseling, chart review, documentation and coordination of care. Portions of family history were obtained by Deborah Arroyo MS, [facility], which were reviewed with family and edited as necessary. All questions were answered to the best of my knowledge. Contact information has been provided to the patient. Ny Lance MD Staff Nurse Care Manager Department of Medical Genetics and Genomics (DMGG) [facility] Appointments: [facility] CC: Deborah Arroyo, MS, [facility] Ariadna Haley (via [employer]) [address] [facility] [address] Lynne Ni MD CC to PCP via fax: Manuel Ferris [address] [place] [address] documented in this encounterSelect Medical Trihealth Rehabilitation Hospital04-28-2025 Telephone encounter Note * Telephone Encounter - Lynne Ni MD - 09/18/2024 4:52 PM EDT Notify patient medication sent as requested Thank you. Patient's request for medication is as follows: Requested Prescriptions Pending Prescriptions Disp Refills belimumab (BENLYSTA) 200 mg/mL auto-injector 12 mL 3 Sig: Inject 200mg (1 pen) subcutaneously once weekly Prescription(s) as above. Please process accordingly. Lynne Ni MD [facility]04-28-2025 Miscellaneous Notes* Telephone Encounter - Lynne [...] (1 pen) subcutaneously once weekly Patient prefers: [facility] Thank you! Maria Esther Pichardo, PharmD Clinical Pharmacist, [employer] [facility] ; Pool: P [facility] Pool #: [id number] documented in this encounterSelect Medical Trihealth Rehabilitation Hospital04-28-2025 Telephone encounter Note * Telephone Encounter - Macarena Sanchez - 09/18/2024 4:03 PM EDT Patient will be calling to reschedule her IV IG and benlysta. She needs to find a dormitory maid and will call back with the dates that she will be available. [facility]04-28-2025 Miscellaneous Notes* Telephone Encounter - Macarena Sanchez - 09/18/2024 4:03 PM EDT Patient will be calling to reschedule her IV IG and benlysta. She needs to find a dormitory maid and will call back with the dates that she will be available. documented in this encounterSelect Medical Trihealth Rehabilitation Hospital04-28-2025 Telephone encounter Note * Telephone Encounter [...] (1 pen) subcutaneously once weekly Patient prefers: [facility] Thank you! Maria Esther Pichardo, PharmD Clinical Pharmacist, [employer] [facility] ; Pool: P [facility] Pool #: [id number] [facility]04-22-2025 Telephone encounter Note* Telephone Encounter - Karina Pino - 09/12/2024 2:35 PM EDT Patient has been scheduled at [place] [facility]04-22-2025 Miscellaneous Notes* Telephone Encounter - Karina Pino - 09/12/2024 2:35 PM EDT Patient has been scheduled at [place] * Telephone Encounter - Sherrie Cortes - [...] below scheduling for the drug. Sandhya Hicks [facility] You25 minutes ago (11:20 AM) LS Please schedule her every 2 weeks for 3 doses, then every 4 weeks for Benlysta. Sandhya Vicente Laura [facility] You27 minutes ago (11:18 AM) LS [...] to Rheum provider. Anahi Becerril RN nurse physical therapy manager: patient would like to know if she can bring her 8 year old to treatmentsin the summer. Basia Samuel RN documented in this encounterSelect Medical Trihealth Rehabilitation Hospital04-22-2025 Telephone encounter Note * Telephone Encounter - Sherrie Cortes - 09/12/2024 2:13 PM EDT Patient called back and is now in agreement to schedule for Benlysta. Patient has been scheduled for Wednesday, 09/18. She will make her future appointments at this visit when she can work around her family arrangements. Spoke w/ T Wyatt regarding daughter recommendations and patient informed. Sherrie Cortes [facility]04-21-2025 Telephone encounter Note* Telephone Encounter - [...] week after her SQ dose. Sandhya Vicente [facility]04-17-2025 Telephone encounter Note* Telephone Encounter - Lynne Ni MD - 09/07/2024 12:52 PM EDT Please start prior authorization for IV benlysta Signed therapy plan with loading doses if approved by insurance. May schedule 1week after last sq injection benlysta pen if approved. Thank you [facility]04-17-2025 Telephone encounter Note* Telephone Encounter - Enma Hamm RN - 09/07/2024 9:04 AM EDT Results discussed with pt. She is set for IVIG 10/04/24. She denies further questions needs or concerns at this time. Enma Hamm RN [facility]04-17-2025 Miscellaneous Notes* Telephone Encounter - Enma Hamm RN - 09/07/2024 9:04 AM EDT Results discussed with pt. She is set for IVIG 10/04/24. She denies further questions needs or concerns at this time. Enma Hamm RN documented in this encounterSelect Medical Trihealth Rehabilitation Hospital04-16-2025 Evaluation note* Diagnosis Onset Date Resolution Status Admit Date Lumbosacral spondylosis acuteApril 2024 3:42pmOther chronic painacuteApril 2024 3:42pm SacroiliitisacuteApril 2024 3:42pmLumbosacral spondylosisacuteJune 2024 11:15amOther chronic painacuteJune 2024 11:15amSacroiliitisacuteJune 2024 11:15am [facility] Work Phone: 1(113) 924-417904-16-2025 Evaluation note* Diagnosis Onset Date Resolution Status Admit Date Lumbosacral spondylosis acuteApril 2024 3:42pmOther chronic painacuteApril 2024 3:42pm SacroiliitisacuteApril 2024 3:42pmLumbosacral spondylosisacuteJune 2024 11:15amOther chronic painacuteJune 2024 11:15amSacroiliitisacuteJune 2024 11:15amLumbosacral spondylosisacuteJuly 2024 9:03amOther chronic painacuteJuly 2024 9:03amSacroiliitisacuteJuly 2024 9:03am [facility] Work Phone: 1(481) 761-885304-16-2025 Telephone encounter Note* Telephone Encounter - Basia Samuel RN - 09/06/2024 4:20 PM EDT Patient has requested to switch from Benlysta injections to infusions. Will forward to Rheum provider. Anahi Becerril RN nurse physical therapy manager: patient would like to know if she [facility] 8 [facility]. Basia Samuel RN [facility]04-16-2025 History of Present illness Narrative* Vaibhav Carvalho APRN.OFFICE SERVICES ASSISTANT - 09/06/2024 9:00 AM EDT Images from the original note were not included. NAME: Ariadna Haley [facility] NO.: [id number] DATE OF SERVICE: September 06, 2024 (Deven) [...] lower lip done 2 days ago at [facility] - awaiting results. B12 [...] injections. Shefollows with multiple doctors including and pigment pusher, veterinary surgery technician, trimmer sawyer and PCP. She has been told they [...] THREE TIMES A DAY^Disp: 135 tablet^Rfl: 1 spjxxzolweNRVAH-tbemzx-bhdnwuudw (BMX 1:1:1) 1:1:1 liqd^Take 5 mL by [...] (Crohn's [Other]) Mother . Vaibhav Carvalho APRN, FILM COATER-C, [facility] H[facility]ology [facility] On[facility] Services Provided at: [place], [place] CC: Manuel Ferris MD [address] [facility] [address] documented in this encounterSelect Medical Trihealth Rehabilitation Hospital04-16-2025 NoteMckitrick Hospital04-14-2025 History of Present illness Narrative* Gordo Barfield MD - 09/04/2024 3:20 PM EDT Subjective Patient ID: Ariadna Haley is a 43 y.o. female who presents for Thyroid Nodule (Follow up ultrasound [facility] 08/24/24) Thyroid US shows a [id number] left inf pole TR4 nodule. 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) 08/10/2023 Hoarse 08/10/2023 Thyroid nodule ([facility]) 08/10/2023 Shortness of breath 07/13/2023 Paroxysmal supraventricular tachycardia ([facility]) 07/13/2023 PAC [...] Insulin resistance 03/07/2024 Lupus erythematosus 04/06/2024 Sacroiliitis ([facility]) 04/06/2024 Resolved Ambulatory Problems Diagnosis Date Noted No Resolved Ambulatory Problems Past Medical History: Diagnosis Date Cervical lymphadenopathy COVID-19 vaccine administered Difficulty walking Fatigue Fibromyalgia, primary History of removal of cyst 2012 HTN (hypertension) (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) Laryngopharyngeal reflux disease Lupus Nonscarring hair loss, unspecified Nontoxic goiter, unspecified ([facility]) Nontoxic single thyroid nodule ([facility]) Numbness Oral [...] % gel ergocalciferol (Vitamin D2) 1.25 MG (43225 UT) capsule Take 50,000 Units by mouth [...] for more aggressive care documented in this encounterMissouri Delta Medical [id number] Telephone encounter Note* Telephone Encounter - Blank Kimball - 09/02/2024 10:28 AM EDT Called and spoke with patient, patient is scheduled for a VV on 10/07/24 at 8:00am. Patient stated will complete labs a walk in [facility]04-12-2025 Miscellaneous Notes* Telephone Encounter - Blank [...] diagnoses: Vitamin D deficiency documented in this encounterSelect Medical Trihealth Rehabilitation Hospital04-11-2025 Telephone encounter Note * Telephone Encounter [...] above. Please process accordingly. Lynne Ni MD [facility]04-11-2025 Telephone encounter Note* Telephone Encounter - [...] Ni MD Assoc. diagnoses: Vitamin D deficiency [facility]04-07-2025 Telephone encounter Note* Telephone Encounter - Renea Schneider MA - 08/28/2024 11:04 AM EDT Do you want labs? Patient coming in Wednesday09/06/24 for follow up treatment. Thanks, Renea Schneider MA [facility]04-01-2025 Miscellaneous Notes* Telephone Encounter - Renea Schneider MA - 08/28/2024 11:04 AM EDT Do you want labs? Patient coming in Wednesday09/06/24 for follow up treatment. Thanks, Renea Schneider MA documented in this encounterSelect Medical Trihealth Rehabilitation Hospital04-01-2025 Miscellaneous Notes* Telephone Encounter - Renea Schneider MA - 11/20/2024 12:00 PM EDT Patient coming in for treatment visit Wednesday11/29/24. Please add lab orders. olu. Renea Schneider MA documented in this encounterSelect Medical Trihealth Rehabilitation Hospital03-27-2025 NoteMckitrick Hospital03-18-2025 Telephone encounter Note* Telephone Encounter - [...] and patient is aware. Basia Samuel RN [facility]03-18-2025 Miscellaneous Notes* Telephone Encounter - Basia Smauel RN - 08/08/2024 10:27 AM EDT Patient [...] aware. Basia Samuel RN documented in this encounterSelect Medical Trihealth Rehabilitation Hospital03-18-2025 NoteMckit[facility] Hospital03-18-2025 History of Present illness Narrative* Basia Samuel RN - 08/08/2024 9:03 AM EDT Patient states that she spoke with provider and she will defer IV iron for now, she is taking oral iron and will have labs rechecked in 1 month Basia Samuel RN documented in this encounterSelect Medical Trihealth Rehabilitation Hospital03-05-2025 History of Present illness Narrative* Lois [...] lupus being treated by rheumatology at the [facility] on steroids, Plaquenil and monoclonal antibody [...] , Rfl: ergocalciferol (Vitamin D-2) 1.25 MG (89172 UT) capsule, Take 1 capsule (50,000 Units) [...] and plan. documented in this [facility] Work Phone: 1(262) 380-273703-05-2025 Instructions* Patient Instructions* Aisstaou Hanson RN - 07/26/2024 2:50 PM EST [...] your visit. documented in this [facility] Work Phone: 1(919) 689-140903-04-2025 History of Present illness Narrative* Bernabe Enlgish MD - 07/25/2024 1:30 PM EST Images [...] ointment bid. On Plaquenil and Benlysta from veterinary surgery technician and started IVIG from interactive developer. Follow up Diagnosis: Hidradenitis Location: thighs Last [...] given frequent flares of thrush. Start Nystatin 391436 unit suspension qid x 14 days. Recommended [...] not swallow it. Related Medications nystatin (Mycostatin) 054526 UNIT/ML suspension Take 4 mL (400,000 Units) [...] is needed. Instructed to follow up with CASTING SUPERVISOR for further work up. Next Visit: 1 year documented in this encounterMissouri Delta Medical CenterNrmenfzwgk80-96-6954 History of Present illness Narrative* Luna Emanuel [...] been reviewed prior to dispensing the medication. Psychometrist Assessment Patient confirmed: Yes Med/dose confirmed: Yes Supplies needed: No supplies needed Missed doses: No Copay amount: 0 Payment confirmed: Yes Delivery method: FedEx Signature required: Waived on patient request Delivery address: [address] [place] [address], [facility] [address] Delivery date: 07/27/24 Questions or concerns for the pharmacist?: No Did you have any side effects believed to be related to this medication, that resulted in hospitalization?: No Current Outpatient Medications on File Prior to Visit Medication Sig yuofuncmbcEJPUC-cnkxyr-aaaxrfnqr (BMX 1:1:1) 1:1:1 liqd Take 5 mL [...] longer tolerated. Luna Emanuel documented in this encounterSelect Medical Trihealth Rehabilitation Hospital03-04-2025 NoteMckitrick Hospital02-27-2025 NoteHNO ID: [id number] Author: ALHAJI VICTORIA, DO Service: ? Author Type: Physician Type: Progress Notes Filed: 07/21/2024 13:05 Note Text: VIRTUAL VISIT PROGRESS NOTE This is a virtual visit using [employer] Video Visit. It required patient-provider interaction for the medical decision making as documented below. I have communicated my name and active licensure. The patient's identity and physical location were verified at the time of this visit. Either the patient or their legal chemical sales representative has been informed of the [...] of 18 Current Outpatient Medications Medication Sig xscfnozculEZLRY-loebxj-tpdoouunh (BMX 1:1:1) 1:1:1 liqd Take 5 mL [...] WHILE ON* belimumab ( (more content not included)...[facility]02-27-2025 History of Present illness Narrative* Alhaji Victoria DO - 07/20/2024 11:41 AM EST VIRTUAL VISIT PROGRESS NOTE This is a virtual visit using [employer] Video Visit. It required patient- provider interaction for the medical decision making as documented below. I have communicated my name and active licensure. The patient's identity and physical location wereverified at the time of this visit. Either the patient or their legal chemical sales representative has been informed of the [...] of 18 Current Outpatient Medications Medication Sig krkinoqugeBNXFI-kbnwsq-axeyomqtm (BMX 1:1:1) 1:1:1 liqd Take 5 mL [...] on the R. The patient or authorized chemical sales representative has agreed to proceed with [...] axillary nodule which is being followed by workers compensation attorney. Through shared decision making with the patient, [...] DO July 21, 2024 documented in this encounterSelect Medical Trihealth Rehabilitation Hospital02-26-2025 [place] [address] Pain Management Procedure Note Signed Patient: Ariadna Haley MR#: [id number] : 1980 Acct:[id number] Age/Sex: 43 / F Adm Date: 5 Loc: Room: Type: [facility] Attending Dr: Adolfo Kang MD Copies to: [...] MD 07/19/24 1104 Signed By: 07/19/24 1134 [facility]02-19-2025 Instructions* Patient Instructions* Marky Gasca PA-C - 07/12/2024 2:33 PM EST Alginate therapy (Reflux Raft, Reflux Gourmet) documented in this encounterSelect Medical Trihealth Rehabilitation Hospital02-19-2025 NoteMckitrick Hospital02-19-2025 History of Present illness Narrative* Marky Gasca PA-C - 07/12/2024 2:14 PM EST Images from the original note were not included. [facility] NOTE CC: Ariadna Haley is a [...] Current medication(s): Current Outpatient Medications Medication Sig hqljpwobghPEMKC-apfdsc-yneutxosu (BMX 1:1:1) 1:1:1 liqd Take 5 mL [...] Level: 3 - Low documented in this encounterSelect Medical Trihealth Rehabilitation Hospital02-17-2025 Evaluation note* Diagnosis Onset Date Resolution Status Admit Date Lumbosacral spondylosis acuteFebruary 2024 3:16pmOther chronic painacuteFebruary 2024 3:16pm SacroiliitisacuteFebruary 2024 3:16pm [facility] Work Phone: 1(844) 243-784802-17-2025 Evaluation note* Diagnosis Onset Date Resolution Status Admit Date Lumbosacral spondylosis acuteFebruary 2024 3:16pmOther chronic painacuteFebruary 2024 3:16pm SacroiliitisacuteFebruary 2024 3:16pmLumbosacral spondylosisacuteMarch 2024 3:40pmOther chronic painacuteMarch 2024 3:40pmSacroiliitisacute March 2024 3:40pm [facility] Work Phone: 1([phone]) 994-275902-17-2025 Telephone encounter Note* Telephone Encounter - Krista Braswell MA - 07/10/2024 7:28 AM EST Pt was notified via . [facility]02-17-2025 Miscellaneous Notes* Telephone Encounter - Krista Fonseca MA - 07/10/2024 7:28 AM EST Pt was notified via . * Telephone Encounter - Lynne Ni MD - 07/09/2024 3:48 PM EST Please Call patient if MyChart note not read to review results/released to My Chart if tests completed at [facility]: Mildly high normal wbc, glucose, one [...] Ni MD documented in this encounterSelect Medical Trihealth Rehabilitation Hospital02-16-2025 Telephone encounter Note * Telephone Encounter [...] above. Please process accordingly. Lynne Ni MD [facility]02-06-2025 History of Present illness Narrative* Luna [...] been reviewed prior to dispensing the medication. Psychometrist Assessment Patient confirmed: Yes Med/dose confirmed: Yes Supplies needed: No supplies needed Missed doses: No Estimated days supply on hand: 1 Copay amount: 0 Payment confirmed: Yes Delivery method: FedEx Signature required: Waived on patient request Delivery address: [address] [place] [address] Delivery date: 07/05/24 Questions or concerns for [...] longer tolerated. Luna Emanuel documented in this encounterSelect Medical Trihealth Rehabilitation Hospital02-06-2025 NoteMckitrick Hospital01-31-2025 Telephone encounter Note* Telephone Encounter - Krista Fonseca MA - 06/23/2024 8:27 AM EST Pt has been notified via [employer]. [facility]01-31-2025 Miscellaneous Notes* Telephone Encounter - Krista Fonseca MA - 06/23/2024 8:27 AM EST Pt has been notified via [employer]. * Telephone Encounter - Lynne Ni MD [...] Ni MD documented in this encounterSelect Medical Trihealth Rehabilitation Hospital01-30-2025 Telephone encounter Note * Telephone Encounter [...] above. Please process accordingly. Lynne Ni MD [facility]01-29-2025 Telephone encounter Note* Telephone Encounter - Sherrie Cortes - 06/21/2024 2:10 PM EST Thanks for the clarification! I didn't schedule the patient yet for Iron because of the question below so we are all good. Thank you! Sherrie Cortes [facility]01-29-2025 Miscellaneous Notes* Telephone Encounter - Sherrie [...] we will recheck. thanks documented in this encounterSelect Medical Trihealth Rehabilitation Hospital01-29-2025 Telephone encounter Note * Telephone Encounter [...] is aware you will call if needed. [facility]01-29-2025 Telephone encounter Note* Telephone Encounter - Vaibhav Carvalho APRN.CNP - 06/21/2024 1:07 PM EST Ok that is fine she can try oral iron Ferrous sulfate 325 mg every other day. Ok to keep her next appointment and we will recheck. thanks [facility]01-28-2025 Telephone encounter Note* Telephone Encounter - Sherrie Cortes - 06/20/2024 8:38 AM EST Left another message for patient. Sent MyChart to call back to schedule infusions when she's ready to schedule and provided phone number. Sherrie Cortes [facility]01-28-2025 Miscellaneous Notes* Telephone Encounter - Sherrie Cortes - 06/20/2024 8:38 AM EST Left another message for patient. Sent MyChart to call back to schedule infusions when she's ready to schedule and provided phone number. Sherrie Corets * Telephone Encounter - Sherrie Cortes - [...] callback with any questions. documented in this encounterSelect Medical Trihealth Rehabilitation Hospital01-24-2025 Telephone encounter Note * Telephone Encounter - Sherrie Cortes - 06/16/2024 3:32 PM EST Call placed to patient, no answer. Left detailed message to call back to schedule for Venofer. Sherrie Cortes [facility]01-24-2025 Telephone encounter Note* Telephone Encounter - Vaibhav Carvalho APRN.CNP - 06/16/2024 12:26 PM EST Called patient and left a message regarding iron infusions. I did inform patient that she is low oniron and we can replace with IV infusion. Will have the office call to schedule. Encouraged to callback with any questions. [facility]01-23-2025 Telephone encounter Note* Telephone Encounter - [...] had recent mammogram that was negative [facility] CenterPordqccwlp21-83-3539 Miscellaneous Notes* Telephone Encounter - KELVIN Cabrera [...] that was negative documented in this encounterMissouri Delta Medical [id number] History of Present illness Narrative* Iraida Pate APRN.OFFICE SERVICES ASSISTANT - 06/14/2024 10:43 AM EST Glucose - SIBO CPT 42400 Hydrogen Breath Test Ariadna Haley 1980 June 14, 2024 Referring Physician: Bandar Portillo NP Indication: NSG TEST INDICATIONS: Diarrhea R19.7, Abdominal Pressure R10.9 Weight: 275 lbs Location: [facility] Duration of Test: 2 hrs Hydrogen Methane [...] Test Results: negative Physician Signature: Iraida Pate APRN.OFFICE SERVICES ASSISTANT documented in this encounterSelect Medical Trihealth Rehabilitation Hospital01-21-2025 Progress note* [facility] - Dionne Driver Art Therapist - [...] 13, 2024 TIME: 10:29 AM PAGER/CONTACT #: [facility]01-21-2025 Miscellaneous Notes* [facility] - Dionne Driver Art Therapist - [...] 10:29 AM PAGER/CONTACT #: documented in this encounterSelect Medical Trihealth Rehabilitation Hospital01-21-2025 NoteMckitrick Hospital01-21-2025 History of Present illness Narrative* Vaibhav Carvalho APRN.OFFICE SERVICES ASSISTANT - 06/13/2024 9:07 AM EST Images from the original note were not included. NAME: Ariadna Haley [facility] NO.: [id number] DATE OF SERVICE: June 13, 2024 (Deven) [...] lower lip done 2 days ago at [facility] - awaiting results. B12 [...] injections. Shefollows with multiple doctors including and pigment pusher, veterinary surgery technician, trimmer sawyer and PCP. She has been told they [...] (Crohn's [Other]) Mother . Vaibhav Carvalho APRN, FILM COATER-C, [facility]ology [facility] On[facility] Services Provided at: [place], [place] CC: Manuel Ferris MD [address] [facility] [address] documented in this encounterSelect Medical Trihealth Rehabilitation Hospital01-20-2025 NoteMckitrick Hospital01-20-2025 History of Present illness Narrative* Lee Friedman - 06/12/2024 2:31 PM EST CMN RECEIVED BY [employer] VIA FAX, COMPLETED, AND PLACED IN PROVIDER MAILBOX FOR SIGNATURE Lee Friedman Coordinator III [employer] SENDING CMN: Josh SIGNED AND DATED CMN, FAXED TO DME & CONFIRMATION PAGE RECEIVED: 06.28.2024 documented in this encounterSelect Medical Trihealth Rehabilitation Hospital01-20-2025 Telephone encounter Note * Telephone Encounter - Margret Cuenca MA - 06/12/2024 12:00 PM EST Patient has an OTV appointment on 06/13. Please place lab orders. Margret Cuenca MA [facility]01-20-2025 Miscellaneous Notes* Telephone Encounter - Margret Cuenca MA - 06/12/2024 12:00 PM EST Patient has an OTV appointment on 06/13. Please place lab orders. Margret Cuenca MA documented in this encounterSelect Medical Trihealth Rehabilitation Hospital01-14-2025 History of Present illness Narrative* Luna [...] been reviewed prior to dispensing the medication. Psychometrist Assessment Patient confirmed: Yes Med/dose confirmed: Yes Supplies needed: No supplies needed Missed doses: No Estimated days supply on hand: 1 Copay amount: 0 Payment confirmed: Yes Delivery method: FedEx Signature required: Waived on patient request Delivery address: [address] [place] [id number] Delivery date: 06/08/24 Questions or concerns for [...] longer tolerated. Luna Emanuel documented in this encounterSelect Medical Trihealth Rehabilitation Hospital01-14-2025 NoteMckit[facility] Hospital01-14-2025 History of Present illness Narrative* KELVIN [...] Ambulatory Problems Diagnosis Date Noted Autoimmune disease (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) 06/09/2023 Discoid lupus erythematosus ([facility]) 02/14/2022 Disturbance of skin sensation 07/06/2023 Elevated sed rate 03/05/2021 High total serum IgM 03/05/2021 Enthesopathy of hip region 07/06/2023 Essential hypertension ([facility]) 06/09/2023 Excessive and frequent menstruation with irregular cycle 09/24/2022 Family history of Crohn's disease 03/05/2021 Hair loss 03/05/2021 Hyperlipidemia (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) 09/07/2022 Obstructive sleep apnea syndrome 05/20/2022 Oral lesion 07/06/2023 Pain, hip 07/06/2023 Rash and nonspecific skin eruption 03/05/2021 Steroid-induced osteoporosis ([facility]) 02/04/2023 Somnolence, [...] Chronic laryngopharyngitis COVID-19 vaccine administered x 2 ([employer]) Difficulty walking Fatigue Fibromyalgia, primary GERD (gastroesophageal [...] of: KELVIN Cabrera documented in this encounterMissouri Delta Medical CenterJdrrapzecv56-08-6525 [facility]12-23-2024 History of Present illness Narrative* Deisy Jaime LSW - 05/15/2024 9:09 AM EST Patient's name appears on the [facility] First Time Treatment Report for a non- oncology treatment. No psychosocial assessment is indicated. BILL Rosenberg Goals of Care Advance Directives are not on file. documented in this encounterSelect Medical Trihealth Rehabilitation Hospital12-20-2024 History of Present illness Narrative* JenaeLuna - [...] been reviewed prior to dispensing the medication. Psychometrist Assessment Patient confirmed: Yes Med/dose confirmed: Yes Supplies needed: No supplies needed Missed doses: No Estimated days supply on hand: 1 Copay amount: 0 Payment confirmed: Yes Delivery method: FedEx Signature required: Waived on patient request Delivery address: [address], [facility] [address] Delivery date: 05/16/24 Questions or concerns for [...] longer tolerated. Luna Emanuel documented in this encounterSelect Medical Trihealth Rehabilitation Hospital12-20-2024 NoteMckitrick Hospital12-04-2024 Nurse Note* Radha Schofield MA - 04/26/2024 9:32 AM EST Patient Identification confirmed: yes. Injection given and documented on JUL per provider order. Radha Schofield MA [facility]12-04-2024 Nurse Note* Radha Schofield MA - 04/26/2024 9:32 AM EST Patient Identification confirmed: yes. Injection given and documented on MAR per provider order. Radha Schofield MA documented in this encounterSelect Medical Trihealth Rehabilitation Hospital11-22-2024 Telephone encounter Note * Telephone Encounter - Gay Barnett - 04/14/2024 12:11 PM EST Patient coming in for a sibo breath test on Wednesday and has been on keflex for 3 days and needs to be on for ten so she will need to reschedule [facility]11-22-2024 Miscellaneous Notes* Telephone Encounter - Gay Barnett - 04/14/2024 12:11 PM EST Patient coming in for a sibo breath test on Wednesday and has been on keflex for 3 days and needs to be on for ten so she will need to reschedule documented in this encounterSelect Medical Trihealth [facility] Hospital11-19-2024 NoteMckit[facility] Hospital11-18-2024 Miscellaneous Notes* Telephone Encounter - Sherrie [...] Please advise. Sherrie Cortes documented in this encounterSelect Medical Trihealth Rehabilitation Hospital11-18-2024 Telephone encounter Note * Telephone Encounter - Sherrie Cortes - 04/10/2024 2:12 PM EST Patient requested this appointment be rescheduled for the end of April. She has been scheduled for 05/19, she is all set. Thank you! Sherrie Cortes [facility]11-18-2024 Telephone encounter Note* Telephone Encounter - Shantel Arce [facility] - 04/10/2024 2:07 PM EST SUBQ products (eg, 20% [Cuvitru, Hizentra, Xembify]) or IM products (eg, 16% [GamaSTAN]) intravenously. It would depend upon insurance coverage and would be done as a retail prescription at designated insurance specialty pharmacy. Elpidio Arce, PharmD, BCOP [facility] Work Phone: 1(713) 469-705111-18-2024 Telephone encounter Note* Telephone Encounter - Enma [...] pt request Enma Hamm RN [facility]11-18-2024 Telephone encounter Note* Telephone Encounter - Enma Hamm RN - 04/10/2024 12:54 PM EST Called to discuss with pt. She was researching online and found SCIG a weekly subq injection to give herself that is less dose, and has less side effects. Pharmacy/[facility]: please advise Enma Hamm RN [facility]11-18-2024 Telephone encounter Note* Telephone Encounter - Vera Najera MD - 04/10/2024 12:26 PM EST Really sorry - I don't recall the home infusion of IVIG - I think it is safer to give it to her in-house as IV so we can monitor infusion reactions. Sorry if I created a misunderstanding. 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 AMSON: I spoke w/ pharmacy and they have no record of this - not sure if Triage was involved? Please advise. Sherrie Cortes [facility]11-15[facility]20[facility] History of Present illness Narrative* Deisy Jaime LSW - 04/07/2024 9:30 AM EST Patient's name appears on the [facility] First Time Treatment List for a non- oncology treatment. No psychosocial assessment is indicated. BILL Rosenberg Goals of Care Advance Directives are not on file SIGNATURE: JUSTICE Rosenberg PATIENT NAME: Ariadna Haley DATE: April 07, 2024 TIME: 9:31 AM PAGER/CONTACT #: documented in this encounterSelect Medical Trihealth [facility]11-14-2024 Evaluation + Plan note* Assessment & [...] her Raynaud's. All her questions were answered. [facility]11-14-2024 Miscellaneous Notes* Assessment & Plan [...] her questions were answered. documented in this encounterLima Memorial Hospital11-14-2024 History of Present illness Narrative* [...] Interpersonal Safety: Unknown (07/15/2023) Received from [facility] [place] [facility] Fear of [...] Assessment and Plan: Problem List Rheumatoid arthritis ([facility]) Relevant Medications ibuprofen (ADVIL,MOTRIN) 200 mg tablet predniSONE (STERAPRED DS) 10 mg tablet pack Systemic lupus erythematosus ([facility]) - Primary Relevant Medications ibuprofen (ADVIL,MOTRIN) 200 [...] orders for this visit: Systemic lupus erythematosus ([facility]) - Vas [...] unspecified site, unspecified whether rheumatoid factor present ([facility]) Current smoker 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 Hayden Arciniega MD, ZIA, RPVI, FSVS, FACS [facility] This note was created with the assistance of a speech recognition program. While intending to generate a timely document that accurately reflects the content of the visit, no guarantee can be provided that every grammatical or spelling mistake has been or will be identified or corrected. Thank you for your understanding. documented in this encounterLima Memorial Hospital11-14-2024 Instructions* Patient Instructions* Hayden Arciniega MD - 04/06/2024 9:40 AM EST Are You Ready To Kick The Habit? Free Tobacco Cessation Resources [facility] Services [facility] provide all employees with free tobacco cessation services that include: Counseling to understand nicotine addiction Education about medications that can help you successfully quit Assistance with developing a plan to quit Call to set up an individual appointment or find out when group classes will be held: [facility]: [phone] [facility]: [phone] [facility]: [phone] [facility]: [phone] Quit Smoking Action Plan and Resources [facility] offers an eight-week, online smoking cessation plan to all [facility] employees, regardless of whether [employer] is your medical insurance provider. Go to www.[email or web address].org/employeewellness and click the Health Risk Assessment and Resources link to get started. In the Glafs6Wglrfn menu, click Action Plans instead of Health Risk Assessment to access the Quit Smoking Action Plan. Additional smoking cessation resources are also available to all [facility] employees on the Gqvdu8Evnjaj web page at www.[employer]/quitsmoking. [place] Tobacco Cessation Program If [employer] is your medical insurance provider, there are more free resources available to you, including: No copays or deductibles on local tobacco cessation counseling services to help you quit Prescription assistance for tobacco cessation medications to help you quit For details about the tobacco cessation program available to [employer] members, go to www.[employer] (Search: Tobacco Cessation Program). [place] Tobacco Quit Line 7-158-NSVW-NOW ( ) is a toll-free, telephonic service that helps [place] residents quit smoking and using tobacco. It is staffed by experts who tailor a quit plan for you and provide you with advice. [place] Tobacco Quit Line 7-114-MOKX-NOW ( ) is a toll-free, telephonic service that helps [place] residents quit smoking and using tobacco. It is staffed by experts who tailor a quit plan for you and provide you with advice. Two weeks of nicotine replacement therapy may be provided at no charge, if needed. Additional Resources These national organizations also offer free information and resources to help you quit tobacco: [place] [employer]--www.cancer.org/healthy/stayawayfromtobacco [place] Heart [employer]--www.heart.org (Search: Quit Smoking) Centers for Disease Control and Prevention--www.cdc.gov/tobacco [place] Lung Association--www.lungusa.org documented in this encounterLima Memorial Hospital11-11-2024 Telephone encounter Note* Telephone Encounter - Marky Nichols DO - 04/03/2024 9:36 AM EST Changed terbinafine to itraconazole at pt request. [facility] Delta Medical [id number] Miscellaneous Notes* Telephone Encounter - Marky Nichols DO - 04/03/2024 9:36 AM EST Changed terbinafine to itraconazole at pt request. documented in this encounterMissouri Delta Medical CenterUgkmsrvuxm04-73-1185 Telephone encounter Note* Telephone Encounter - Lynne [...] above. Please process accordingly. Lynne Ni MD [facility]11-10-2024 Miscellaneous Notes* Telephone Encounter - Lynne [...] Ni MD documented in this encounterSelect Medical Trihealth Rehabilitation Hospital11-10-2024 History of Present illness Narrative* Marky Nichols, - 04/02/2024 1:30 PM EST HPI: Historian of HPI: patient Ariadna Halye is a 43 y.o. female who presents [...] her immunosuppressive therapy. documented in this encounterMissouri Delta Medical CenterXxvemlqydc86-32-1494 Instructions* Patient Instructions* Vera Najera MD - 04/01/2024 4:28 PM EST Obtain body fluid culture from [facility]. B12 shot today and every 4 weeks. Continue Folic acid. Frequent infections plan IVIG for hypogammaglobulinemia Start when approved. RTC 3 months repeat labs same day. IVIG same day. documented in this encounterSelect Medical Trihealth [facility] Hospital11-08-2024 [facility]11-08-2024 History of Present illness Narrative* Ashly Castillo - 03/31/2024 12:29 PM EST CMN RECEIVED BY [employer] VIA FAX, COMPLETED, AND PLACED IN PROVIDER MAILBOX FOR SIGNATURE Ashly Castillo Sole Stitcher Hand II 03/31/2024 [employer] SENDING CMN: JOSH SIGNED AND DATED CMN, FAXED TO DME & CONFIRMATION PAGE RECEIVED: 04/11/2024 documented in this encounterSelect Medical Trihealth Rehabilitation Hospital11-07-2024 Telephone encounter Note * Telephone Encounter - Mae Elaine - 03/30/2024 8:01 AM EST Pt is scheduled and instructions were sent thru my chart. [facility]11-07-2024 Miscellaneous Notes* Telephone Encounter - Mae [...] note were not included. documented in this encounterSelect Medical Trihealth Rehabilitation Hospital11-06-2024 Telephone encounter Note * Telephone Encounter - Mae Elaine - 03/29/2024 9:02 AM EST Im for pt- saved time on 04/18 7:45 Also sent mychart msg. dm [facility]11-04-2024 NoteM[facility]11-04-2024 History of Present illness Narrative* Vera Najera MD - 03/27/2024 3:03 PM EST Images from the original note were not included. NAME: Ariadna Haley [facility] NO.: [id number] DATE OF SERVICE: March 27, 2024 ([place]) Some elements in this clinic note that are critical to medical decision making have been carefully reviewed and included from a prior clinic note dated: December 27, 2023 (Liz) Referring Provider: Dr. Manuel Ferris Additional Clinicians involved in Ariadna Haley's care: VIRTUAL VISIT PROGRESS NOTE This is a virtual visit using [employer] Correspondent Video Call. It required patient- provider interaction for the medical decision making as documented below. I have communicated my name and active licensure. The patient's identity and physical location wereverified at the time of this visit. Either the patient or their legal chemical sales representative has been informed of the [...] lower lip done 2 days ago at [facility] - awaiting results. B12 [...] injections. Shefollows with multiple doctors including and pigment pusher, veterinary surgery technician, trimmer sawyer and PCP. She has been told they [...] CPE Hematology and Oncology Services Provided at: [place], [place] CC: Manuel Ferris MD [address] [facility] [id number] documented in this encounterSelect Medical Trihealth Rehabilitation Hospital10-31-2024 History of Present illness Narrative* KELVIN [...] Ambulatory Problems Diagnosis Date Noted Autoimmune disease (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 Injection given and documented on JUL per provider order. Stacy Gutiérrez MA [facility]10-31-2024 Nurse Note* Stacy Gutiérrez MA - 03/23/2024 10:16 AM EDT Patient Identification confirmed: yes. Injection given and documented on MAR per provider order. Stacy Gutiérrez MA documented in this encounterSelect Medical Trihealth Rehabilitation Hospital10-28-2024 Telephone encounter Note * Telephone Encounter - Mae Elaine - 03/20/2024 12:37 PM EDT Images from the original note were not included. [facility]10-26-2024 History of Present illness Narrative* Lynne [...] visit. Either the patient or their legal chemical sales representative has been informed of the [...] metoprolol for POTs, avoid aggravating triggers, terminal computer operator pain recommendations per primary [...] metoprolol for POTs, avoid aggravating triggers, terminal computer operator pain recommendations per primary [...] metoprolol for POTs, avoid aggravating triggers, terminal computer operator pain recommendations per primary [...] Due for eye exam. Labs sent to [facility]/completed in 06/2021 (no results faxed to office, but patient pulled up results on her phone). Chronic current pain in neck, flank area, mid back, knees, legs, arms, all over pain. Better with lyrica 75mg 3times a day. Reports pain 4-12/31. Couple hrs AM stiffness. COVID vaccine [employer] 09/28/20, 10/19/20, 05/26/21. Feels safe at home. [...] pain: yes H/o precedent/frequent infection(s): as above Enthesopathy/Regina's/heel/plantar tenderness: hands random painful/tingling Skin thickening, psoriasis, [...] COVID-19 original vaccine, age 12+ yr, monovalent ([employer] - PURPLE TOP) 09/28/2020 10/19/2020 05/26/2021 COVID-19 vaccine, age 12+ yr ([employer]-YCharts[employer]CH COMIRNATY) 02/23/2023 COVID-19 vaccine, age 12+ yr, bivalent ([employer]) 02/08/2022 Pneumovax no Flu shot no Tetanus [...] (33);NL cbc, cmp, negative hla b27; Outside [place] 06/2021 low vitamin D 16, vitamin b12-307;high [...] Z79.899 Long-term use of high-risk medication Z79.52 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 Start azathioprine [...] video & audio (virtual) or phone or soqw-nq-wuzg patient care, completing clinical documentation, obtaining and/or [...] Workers' Compensation? No Do you need an computer systems architect? No [facility] MYCHART ZOOM MESSAGE Question 03/16/2024 [...] Score (range: 0 - 47) 14 15 [facility] DOCUMENT/IMAGE UPLOAD Question 03/16/2024 7:51 PM EDT [...] Forearm or Lower Left Leg. [facility] PROMIS 10 ADULT SHORT FORM V1.0 GLOBAL [...] 3) 2 (LESS < or = 5) [facility] PROVIDER UNDERSTANDING CURRENT HEALTH RHEUMATOLOGY Question 2023 11:10 PM EDT - Filed by Patient These questions will help my provider understand my health Strongly Agree documented in this encounterSelect Medical Trihealth Rehabilitation Hospital10-26-2024 Instructions* Patient Instructions* Lynne Ni MD [...] (200mg) daily with a meal Please see cable placer every 6-12months while on Hydroxychloroquine. azathioprine daily [...] your usual activities immediately. documented in this encounterSelect Medical Trihealth Rehabilitation Hospital10-25-2024 Telephone encounter Note * Telephone Encounter [...] above. Please process accordingly. Lynne Ni MD [facility]10-25-2024 Miscellaneous Notes* Telephone Encounter - Lynne [...] Department VIDEO SPEC EST 03/18/2024 9[facility]00 [facility] Last Ophthalmology Check for Plaquenil [...] Assoc. diagnoses: Pseudomonas infection documented in this encounterSelect Medical Trihealth Rehabilitation Hospital10-25-2024 Telephone encounter Note * Telephone Encounter [...] VIDEO SPEC EST 03/18/2024 9:00 AM [facility] Last Ophthalmology Check for Plaquenil [...] Alhaji Victoria DO Assoc. diagnoses: Pseudomonas infection [facility]10-24-2024 History of Present illness Narrative* Luan [...] Ambulatory Problems Diagnosis Date Noted Autoimmune disease (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) 06/09/2023 Discoid lupus erythematosus ([facility]) 02/14/2022 Disturbance of skin sensation 07/06/2023 Elevated sed rate 03/05/2021 High total serum IgM 03/05/2021 Enthesopathy of hip region 07/06/2023 Essential hypertension ([facility]) 06/09/2023 Excessive and frequent menstruation with irregular cycle 09/24/2022 Family history of Crohn's disease 03/05/2021 Hair loss 03/05/2021 Hyperlipidemia ([facility]) 05/31/2014 FPC current use of systemic steroids 02/04/2023 Long-term use of high-risk medication 06/15/2022 Long-term use of Plaquenil 03/05/2021 LPRD (laryngopharyngeal reflux disease) 07/06/2023 Megaloblastic anemia due to vitamin B12 deficiency 03/04/2022 Myalgia 07/06/2023 Obesity, Class III, BMI 40-49.9 (morbid obesity) ([facility]) 09/07/2022 Obstructive sleep apnea syndrome 05/20/2022 Oral lesion 07/06/2023 Pain, hip 07/06/2023 Rash and nonspecific skin eruption 03/05/2021 Steroid-induced osteoporosis ([facility]) 02/04/2023 Somnolence, daytime 05/20/2022 Secondary osteoarthritis of multiple sites 03/05/2021 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 02/04/2023 Swelling of lymph nodes 03/05/2021 Vitamin D deficiency 03/06/2021 Vitamin B12 deficiency 05/31/2014 Pure hypercholesterolemia, unspecified (CMS/HCC) 08/10/2023 Hoarse 08/10/2023 Thyroid nodule ([facility]) 08/10/2023 Shortness of breath 07/13/2023 Paroxysmal supraventricular tachycardia ([facility]) 07/13/2023 PAC [...] Chronic laryngopharyngitis COVID-19 vaccine administered x 2 (CompuPay) Difficulty walking Fatigue Fibromyalgia, primary GERD (gastroesophageal reflux disease) History of removal of cyst 2012 tailbone x2 HTN (hypertension) ([facility]) Hx of abnormal cervical Pap smear Hyperlipidemia ([facility]) Insulin resistance [...] nursing note reviewed. Exam conducted with a forest ranger technician present. Vitals: Estimated body mass index is [...] Disease with Dr. Baer and Specialist at [facility]. Patient voiced that Dr. Baer recommended surgery, but patient feels that maybe excessive. Specialist at [facility] suggested monitoring. Patient has had mammogram. Patient does not put anything on her breast.Ruled out Mondor's Breast concerns. Discussed [place] Oil at night and Vitamin E lotion. Patient voiced that her breast feel brambila and heavier. Discussed growth of breast and proper support. Breastare not hot nor warm to the touch. Patient to obtain bilateral breast ultrasound. Patient to followup with routine annual appointment and as needed. Documented by Alicia Christine LPN on behalf of: Luan Valdivia DO documented in this encounterMissouri Delta Medical CenterJyygvdsffy20-16-2738 [facility] Note Chief Complaint: New patient here to establish care. Ref from Gay De La Torre CNP for hypertension. Former [facility] cardiology patient. Had echo a few [...] past several months. She has seen 2-3 electron microprobe operator in the past. She has undergone a [...] on any stimulants including caffeinated beverages, alcohol, uiws-nfm-kpukuyc Sudafed etc. If her symptoms of palpitations persist, particular if she has lightheadedness or dizziness, head upright tilt table test may be reasonable to evaluate for possible dysautonomia's I discussed the side effects and risks of long-term steroid therapy and recommended she discuss with her veterinary surgery technician weaning off soon as possible Given her morbid obesity, her current symptoms and comorbidities are likely related to excessive weight: I encouraged physical activity, attempts to lose weigh (more content not included)...[facility] 03-07-2024 History of Present illness Narrative* Lee Friedman - 03/07/2024 8:35 AM EDT CMN RECEIVED BY [employer] VIA FAX, COMPLETED, AND PLACED IN PROVIDER MAILBOX FOR SIGNATURE Lee Friedman Coordinator III 03.07.2024 [employer] SENDING CMN: Josh SIGNED AND DATED CMN, FAXED TO [employer] & CONFIRMATION PAGE RECEIVED: 03.07.2024 documented in this encounterSelect Medical Trihealth Rehabilitation Hospital10-01-2024 Telephone encounter Note * Telephone Encounter [...] 'too terrified to drive that far to [facility].' Further reviewed the reasoning behind the [...] at this time. Luda Vargas Genetic Counseling Banjo Repair Person Additional: see Khoa for documentation of scheduling and cancellation with genetics in 2021 [facility]10-01-2024 Miscellaneous Notes* Telephone Encounter - Luda [...] terrified to drive that far to [facility] [place].' Further reviewed the reasoning behind the visit [...] at this time. Luda Vargas Genetic Counseling Banjo Repair Person Additional: see Khoa for documentation of scheduling and cancellation with genetics in 2021 documented in this encounterSelect Medical Trihealth Rehabilitation Hospital09-30-2024 Nurse Note* Kenzie Shannon MA - 02/21/2024 11:13 AM EDT Patient Identification confirmed: yes. Injection given and documented on JUL per provider order. Kenzie Shannon MA [facility]09-30-2024 Nurse Note* Kenzie Shannon MA - 02/21/2024 11:13 AM EDT Patient Identification confirmed: yes. Injection given and documented on JUL per provider order. Kenzie Shannon MA documented in this encounterSelect Medical Trihealth Rehabilitation Hospital09-27-2024 Telephone encounter Note * Telephone Encounter - Sherrie Jimenes - 02/18/2024 1:26 PM EDT Patient is calling the [place] office requesting Dr. Ni to place a referral to genetics. Please advise. [facility]09-27-2024 Miscellaneous Notes* Telephone Encounter - Sherrie Jimenes - 02/18/2024 1:26 PM EDT Patient is calling the [place] office requesting Dr. Ni to place a referral to genetics. Please advise. documented in this encounterSelect Medical Trihealth Rehabilitation Hospital09-24-2024 Telephone encounter Note * Telephone Encounter - Hansa Javed LPN - 02/15/2024 9:49 AM EDT PAP ORDER FAXED TO [facility] WITH DEMOGRAPHICS, OFFICE NOTES WITH CONFIRMATON NOTED. [facility]09-24-2024 Miscellaneous Notes* Telephone Encounter - Hansa Javed LPN - 02/15/2024 9:49 AM EDT PAP ORDER FAXED TO [facility] WITH DEMOGRAPHICS, OFFICE NOTES WITH CONFIRMATON NOTED. documented in this encounterSelect Medical Trihealth Rehabilitation Hospital09-23-2024 History of Present illness Narrative* Elton (Pull Worker)Luda - 02/14/2024 2:32 PM EDT [facility] [...] been reviewed prior to dispensing the medication. Psychometrist Assessment Patient confirmed: Yes Med/dose confirmed: Yes Missed doses: No Estimated days supply on hand: 1 Next cycle/dose due: 02/17/24 Copay amount: 0 Payment confirmed: Yes Delivery method: FedEx Signature required: Waived on patient request Delivery address: [address] [place] [address] [place], [place] Delivery date: 02/17/24 Questions or concerns [...] and/or no longer tolerated. Luda Conde CPhT [facility] [phone] documented in this encounterSelect Medical Trihealth Rehabilitation Hospital09-23-2024 History of Present illness Narrative* Elton EpsteinPull WorkerLuda Benz - 02/14/2024 2:26 PM EDT Benefits investigation was conducted, indicating that a re-authorization is required for Ben[employer]. WARREN was initiated and pending review. Plan Name: Keesha Armstrong Balderrama: [id number] Luda Conde CPhT [facility] [phone] documented in this encounterSelect Medical Trihealth Rehabilitation Hospital09-23-2024 Instructions* Patient Instructions* Lexus Heck APRN.OFFICE SERVICES ASSISTANT - 02/14/2024 8:03 AM EDT Images from the original note were not included. Your most recent body mass index (BMI) that we have on record is 43.08 kg/m2. Obstructive sleep apnea (JOSE RAFAEL) worsens with an increase in weight; reduction in weight may improve or resolve your JOSE RAFAEL. Ifyou are not already seeking treatment, there are resources available at the [facility] such as a nutrition consultation or referral to weight management programs at our [facility]. Please let us know if we can [...] deductible,co-payments, and out of pocket expenses. DME: [facility] [phone] - Remember to clean your mask and equipment regularly, as directed. - Avoid use of ozone drop pit worker, SoClean devices, or UV cleaning devices - [...] the central scheduling system for the [facility] at [phone]. [facility] now offers direct scheduling for patients to schedule appointments. Virtual visits are also available. Call the office at [phone], option #5 for questions. documented in this encounterSelect Medical Trihealth Rehabilitation Hospital09-23-2024 History of Present illness Narrative* Lexus Heck APRN.CNP - 02/14/2024 8:00 AM EDT Images from the original note were not included. [facility] Virtual Visit Follow up/ Established patient visit Date of last visit : 07/27/2022 I have communicated my name and active licensure. The patient's identity and physical location wereverified at the time of this visit. Either the patient or their legal chemical sales representative has been informed of the [...] : PAP therapy DME: Josh MOJICA fax: [phone] DME ph: [phone] PAP History: Current PAP settin-15 cm H2O. [...] are sorted in reverse-chronological order 04/12/2022 07/23/2022 [place] Sleepiness Scale Score 4 (No clinically significant [...] - Follow up 12 months. Lexus Heck APRN.OFFICE SERVICES ASSISTANT documented in this encounterSelect Medical Trihealth Rehabilitation Hospital09-18-2024 History of Present illness Narrative* Zita Cuellar, CARISSA - 02/09/2024 8:00 AM EDT Images from the original note were not included. CHIEF COMPLAINT REASON FOR VISIT : leg pain HPI: Ariadna Haley is a 43 y.o. female who presents for [facility] audiovisit. She is at home. She [...] Chronic laryngopharyngitis COVID-19 vaccine administered x 2 (CompuPay) Difficulty walking Fatigue Fibromyalgia, primary GERD (gastroesophageal reflux disease) History of removal of cyst 2013 tailbone x2 HTN (hypertension) ([facility]) Hx of abnormal cervical Pap smear Hyperlipidemia ([facility]) Insulin resistance [...] Depression: Not at risk (12/27/2023) [facility] from [facility] PHQ-2 PHQ-2 score: 1 REVIEW OF [...] and coordinating care. documented in this encounterMissouri Delta Medical [id number] NoteHNO ID: [id number] Author: ALHAJI VICTORIA, DO Service: ? Author Type: Physician Type: Progress Notes Filed: 01/27/2024 16:54 Note Text: VIRTUAL VISIT PROGRESS NOTE This is a virtual visit using [employer] Video Visit. It required patient-provider interaction for the medical decision making as documented below. I have communicated my name and active licensure. The patient's identity and physical location were verified at the time of this visit. Either the patient or their legal chemical sales representative has been informed of the [...] of green drainage. She saw her OB/ lap welder. This was thought to be secondary to [...] SOB/WHEEZING, and NO DYSPHAG (more content not included)...[facility]09-05-2024 History of Present illness Narrative* [...] visit. Either the patient or their legal chemical sales representative has been informed of the [...] of green drainage. She saw her OB/ lap welder. This was thought to be secondary to [...] thrush Alhaji Victoria DO documented in this encounterSelect Medical Trihealth Rehabilitation Hospital09-03-2024 Nurse Note* Margret Cuenca MA - 01/25/2024 11:30 AM EDT Patient Identification confirmed: yes. Injection given and documented on JUL per provider order. Margret Cuenca MA [facility]09-03-2024 Nurse Note* Margret Cuenca MA - 01/25/2024 11:30 AM EDT Patient Identification confirmed: yes. Injection given and documented on MAR per provider order. Margret Cuenca MA documented in this encounterSelect Medical Trihealth Rehabilitation Hospital08-27-2024 History of Present illness Narrative* Arianne [...] outcomes. Aidee Dwight, PharmD Clinical Pharmacist, [employer] [facility] ; Pool: P [facility] Pool #: [id number] Psychometrist Assessment Patient confirmed: Yes Med/dose confirmed: Yes Supplies needed: No supplies needed Missed doses: No Estimated days supply on hand: (At least 1 dose) Next cycle/dose due: 01/20/24 Copay amount: 0 Payment confirmed: Yes Delivery method: FedEx Signature required: Waived on patient request Delivery address: [address] [place] [address] Delivery date: 01/21/24 Questions or concerns for [...] no longer tolerated. Arianne Mckinley CPhT, Inflammatory/Allergy [facility] [phone] documented in this encounterSelect Medical Trihealth Rehabilitation Hospital08-21-2024 Telephone encounter Note * Telephone Encounter - Krista Braswell MA - 01/12/2024 10:45 AM EDT Pt has been notified via Teralynk. [facility]08-21-2024 Miscellaneous Notes* Telephone Encounter - Krista Fonseca MA - 01/12/2024 10:45 AM EDT Pt has been notified via Teralynk. * Telephone Encounter - Lynne Ni MD [...] Assoc. diagnoses: Screening-pulmonary TB documented in this encounterSelect Medical Trihealth Rehabilitation Hospital08-21-2024 Telephone encounter Note * Telephone Encounter [...] above. Please process accordingly. Lynne Ni MD [facility]08-21-2024 Telephone encounter Note* Telephone Encounter - [...] Lynne Ni MD Assoc. diagnoses: Screening-pulmonary TB [facility]08-08-2024 Telephone encounter Note* Telephone Encounter - Krista Braswell MA - 12/30/2023 1:34 PM EDT Spoke to pt aware of results and recommendations. [facility]08-08-2024 Miscellaneous Notes* Telephone Encounter - Krista [...] vitamin b12 every month documented in this encounterSelect Medical Trihealth Rehabilitation Hospital08-08-2024 Telephone encounter Note * Telephone Encounter [...] likely reactive, continue vitamin b12 every month [facility]08-05-2024 Telephone encounter Note* Telephone Encounter - Enma Hamm RN - 12/27/2023 12:49 PM EDT Pt informed of MM message and denies any questions, needs or concerns at this time. Appointments verified. Enma Hamm RN [facility]08-05-2024 Miscellaneous Notes* Telephone Encounter - Enma Hamm, [...] thinners. Neda Hill PA-C documented in this encounterSelect Medical Trihealth Rehabilitation Hospital08-05-2024 Telephone encounter Note * Telephone Encounter - Neda Hill PA-C - 12/27/2023 12:44 PM EDT Please call and inform the patient that I reviewed her [facility] records and there is no evidence of a blood clot and she does not need to be on blood thinners. Neda Hill PA-C [facility] Work Phone: 1(999) 302-728708-05-2024 Nurse Note* Margret Cuenca MA - 12/27/2023 11:44 AM EDT Patient Identification confirmed: yes. Injection given and documented on MAR per provider order. Margret Cuenca MA [facility]08-05-2024 Nurse Note* Margret Cuenca MA - 12/27/2023 11:44 AM EDT Patient Identification confirmed: yes. Injection given and documented on MAR per provider order. Margret Cuenca MA documented in this encounterSelect Medical Trihealth Rehabilitation Hospital08-05-2024 History of Present illness Narrative* Neda Hill PA-C - 12/27/2023 11:30 AM EDT Images from the original note were not included. NAME: Ariadna Haley [facility] NO.: [id number] DATE OF SERVICE: December 27, 2023 (Liz) [...] lower lip done 2 days ago at [facility] - awaiting results. B12 [...] injections. Shefollows with multiple doctors including and pigment pusher, veterinary surgery technician, trimmer sawyer and PCP. She has been told they [...] which included preparing to see the patient, pjxn-oy-wpkc patient care, completing clinical documentation, obtaining and/or reviewing separately obtained history, performing a medically appropriate examination, counseling and educating the pat ient/family/caregiver, ordering medications, tests, or procedures, communicating with other HCPs (not separately reported), independently interpreting results (not separately reported), communicatingresults to the patient/family/caregiver, and care coordination (not separately reported). Neda Hill PA-C Hematology and Oncology Services Provided at: [place], [place] CC: Manuel Ferris MD [address] [facility] [id number] documented in this encounterSelect Medical Trihealth Rehabilitation Hospital07-22-2024 History of Present illness Narrative* Elton (Pull Worker)Luda - 12/13/2023 11:44 AM EDT [facility] [...] laboratory parameters, disease state markers and outcomes. Psychometrist Assessment Patient confirmed: Yes Med/dose confirmed: Yes Missed doses: No Estimated days supply on hand: 1 Next cycle/dose due: 12/16/23 Copay amount: 0 Payment confirmed: Yes Delivery method: FedEx Signature required: Waived on patient request Delivery address: [address] [place] [address] Delivery date: 12/17/23 Questions or concerns for [...] PHARMACY TREATMENT PLAN INFORMATION Luda Conde CPhT [facility] [phone] documented in this encounterSelect Medical Trihealth Rehabilitation Hospital07-08-2024 Nurse Note* Stacy Gutiérrez MA - 11/29/2023 1:47 PM EDT Patient Identification confirmed: yes. Injection given and documented on MAR per provider order. Stacy Gutiérrez MA [facility]07-08-2024 Nurse Note* Stacy Gutiérrez MA - 11/29/2023 1:47 PM EDT Patient Identification confirmed: yes. Injection given and documented on MAR per provider order. Stacy Gutiérrez MA documented in this encounterSelect Medical Trihealth Rehabilitation Hospital07-05-2024 Telephone encounter Note * Telephone Encounter - Katherin Schneider RN - 11/26/2023 11:34 AM EDT Please sign pended script Maryam Schneider RN [facility]07-05-2024 Miscellaneous Notes* Telephone Encounter - Katherin Schneider RN - 11/26/2023 11:34 AM EDT Please sign pended script Maryam Schneider RN documented in this encounterSelect Medical Trihealth Rehabilitation Hospital06-24-2024 History of Present illness Narrative* Aidee Quintanilla, [facility] - 11/15/2023 1:00 PM EDT [facility] [...] laboratory parameters, disease state markers and outcomes. Psychometrist Assessment Patient confirmed: Yes Med/dose confirmed: Yes Missed doses: No Estimated days supply on hand: 1 Next cycle/dose due: 11/18/23 Copay amount: 0 Payment confirmed: Yes Delivery method: FedEx Signature required: Waived on patient request Delivery address: [address] [place] [address] Delivery date: 11/17/23 Questions or concerns for [...] facility-administered medications on file prior to visit. [facility] Visit Assessment - Inflammatory [...] Yes Aidee Quintanilla, PharmD Clinical Pharmacist, [employer] [facility] ; Pool: P [facility] Pool #: [id number] documented in this encounterSelect Medical Trihealth Rehabilitation Hospital06-20-2024 Telephone encounter Note * Telephone Encounter [...] above. Please process accordingly. Lynne Ni MD [facility]06-20-2024 Miscellaneous Notes* Telephone Encounter - Lynne [...] months 06/02/24 06/03/23 08/31/23 Auth. provider: Vera Najear MD Assoc. diagnoses: [...] High total serum IgM documented in this encounterSelect Medical Trihealth Rehabilitation Hospital06-20-2024 Telephone encounter Note * Telephone Encounter [...] vitamin B12 deficiency, High total serum IgM [facility]06-06-2024 Telephone encounter Note* Telephone Encounter - Karina Morales RN - 10/28/2023 1:33 PM EDT Pt read Teralynk message. [facility]06-06-2024 Miscellaneous Notes* Telephone Encounter - Karina Morales RN - 10/28/2023 1:33 PM EDT Pt read Teralynk message. * Telephone Encounter - Lynne Ni [...] soon! Warm regards, :) documented in this encounterSelect Medical Trihealth Rehabilitation Hospital06-06-2024 Telephone encounter Note * Telephone Encounter [...] you feel better soon! Warm regards, :) [facility]06-05-2024 Nurse Note* Margret Cuenca MA - 10/27/2023 2:43 PM EDT Patient Identification confirmed: yes. Injection given and documented on MAR per provider order. Margret Cuenca MA [facility]06-05-2024 Nurse Note* Margret Cuenca MA - 10/27/2023 2:43 PM EDT Patient Identification confirmed: yes. Injection given and documented on MAR per provider order. Margret Cuenca MA documented in this encounterSelect Medical Trihealth Rehabilitation Hospital05-14-2024 History of Present illness Narrative* Lynne [...] visit. Either the patient or their legal chemical sales representative has been informed of the [...] metoprolol for POTs, avoid aggravating triggers, terminal computer operator pain recommendations per primary [...] -12/31. Couple hrs AM stiffness. COVID vaccine [employer] 09/28/20, 10/19/20, 05/26/21. Feels safe at home. [...] COVID-19 original vaccine, age 12+ yr, monovalent ([employer] - PURPLE TOP) 09/28/2020 10/19/2020 05/26/2021 COVID-19 vaccine, age 12+ yr, 2022- season ([employer]) 02/23/2023 COVID-19 vaccine, age 12+ yr, bivalent ([employer]) 02/08/2022 Pneumovax no Flu shot no Tetanus [...] (33);NL cbc, cmp, negative hla b27; Outside [place] 06/2021 low vitamin D 16, vitamin b12-307;high [...] (200mg) daily with a meal Please see cable placer every 6-12months while on Hydroxychloroquine. Start azathioprine [...] video & audio (virtual) or phone or vtaq-yw-detn patient care, completing clinical documentation, obtaining and/or [...] Workers' Compensation? No Do you need an computer systems architect? No [facility] MYCHART ZOOM MESSAGE Question 2023 11:04 [...] (range: 0 - 100) 2 2 3 [facility] PROMIS CAT V1.0 - FATIGUE-28 DAYS [...] - 100) 5 2 4 [facility] [place]Q QUESTIONNAIRE Question 2023 11:10 PM EDT [...] (range: 0 - 47) 15 [facility] PROVIDER UNDERSTANDING CURRENT HEALTH RHEUMATOLOGY Question 2023 [...] 3 (WITHIN +/- 5) documented in this encounterSelect Medical Trihealth Rehabilitation Hospital05-09-2024 Nurse Note* Renea Schneider MA - 09/30/2023 10:53 AM EDT Patient Identification confirmed: yes. Injection given and documented on JUL per provider order. Renea Schneider MA [facility]05-01-2024 Evaluation note* Author Ketty Mccall [facility] HospitalAuthoredMay 2023 [id number] female referred to the gastroenterology clinic for [...] switch omeprazole to pantoprazole and monitor symptoms [facility] Work Phone: 1(535) 878-525504-18-2024 Instructions* Patient Instructions* Vera Najera MD - 09/09/2023 4:47 PM EDT Follow up in 13 Weeks - labs 1 week before. B12 shot every 4 weeks. Continue Folic acid. documented in this encounterSelect Medical Trihealth Rehabilitation Hospital04-18-2024 History of Present illness Narrative* Vera Najera MD - 09/09/2023 4:30 PM EDT NAME: Ariadna Haley [facility] NO.: [id number] DATE OF SERVICE: September 09, 2023 (Marquis) Some elements in this clinic note that are critical to medical decision making have been carefully reviewed and included from a prior clinic note dated: June 10, 2023 (Marquis) Referring Provider: Dr. Manuel Ferris Additional Clinicians involved in Ariadna Haley's care: VIRTUAL VISIT PROGRESS NOTE This is a virtual visit using [employer] Video Call. It required patient- provider interaction for the medical decision making as documented below. I have communicated my name and active licensure. The patient's identity and physical location wereverified at the time of this visit. Either the patient or their legal chemical sales representative has been informed of the [...] lower lip done 2 days ago at [facility] - awaiting results. B12 [...] injections. Shefollows with multiple doctors including and pigment pusher, veterinary surgery technician, trimmer sawyer and PCP. She has been told they [...] CPE Hematology and Oncology Services Provided at: [place], [place] CC: Manuel Ferris MD [address] [facility] [id number] documented in this encounterSelect Medical Trihealth Rehabilitation Hospital04-15-2024 Miscellaneous Notes* Telephone Encounter - Maynor Bryson MA - 09/06/2023 7:21 AM EDT patient has viewed the Teralynk message per [employer]. * Telephone Encounter - Lynne Ni MD - 09/04/2023 6:30 PM EDT Please Call patient if Vapps note not read to review results/released to [...] Ni MD documented in this encounterSelect Medical Trihealth [facility] Hospital04-09-2024 Nurse Note* Margret Cuenca MA - 08/31/2023 10:35 AM EDT Patient Identification confirmed: yes. Injection given and documented on JUL per provider order. Margret Cuenca MA documented in this encounterSelect Medical Trihealth [facility] Hospital04-01-2024 Nurse Note* Renea Schneider MA - 09/30/2023 10:53 AM EDT Patient Identification confirmed: yes. Injection given and documented on JUL per provider order. Renea Schneider MA documented in this encounterSelect Medical Trihealth [facility] Hospital03-14-2024 Nurse Note* Margret Cuenca - 08/05/2023 11:16 AM EDT Patient Identification confirmed: yes. Injection given and documented on JUL per provider order. Margret Cuenca documented in this encounterSelect Medical Trihealth [facility] Hospital02-20-2024 Nurse Note* Margret Cuenca - 07/13/2023 12:01 PM EST Patient Identification confirmed: yes. Injection given and documented on JUL per provider order. Margret Cuenca documented in this encounterSelect Medical Trihealth [facility] Hospital02-20-2024 History of Present illness Narrative* Lois [...] and is being cared for at the [facility] utilizing steroids, Plaquenil and injectable medic ation(Benlystal). The patient record indicating having had cardiac catheterization in [place] 3 years ago which was normal. I have the report available for my review. [facility] [...] lupus being treated by rheumatology at the [facility] on steroids, Plaquenil and monoclonal antibody [...] , Rfl: ergocalciferol (Vitamin D-2) 1.25 MG (24246 UT) capsule, Take 1 capsule (50,000 Units) [...] and plan. documented in this [facility] Work Phone: 1(725) 916-956402-20-2024 Instructions* Patient Instructions* Lila Tejeda LPN - [...] your visit. documented in this [facility] Work Phone: 1(324) 771-395402-13-2024 History of Present illness Narrative* Kade Early [...] , Rfl: ergocalciferol (Vitamin D2) 1.25 MG (90432 UT) capsule, Take 50,000 Units by mouth [...] Chronic laryngopharyngitis COVID-19 vaccine administered x 2 (CompuPay) History of removal of cyst 2013 tailbone [...] reflexes: Stu's absent. Ankle clonus absent. Coordination Nrsper-ex-nllw, rapid alternating movements and cakn-cc-drth normal bilaterally without dysmetria. Gait Normal casual, [...] Lyrica 100 mg TID. She is on wetckudjua10 mg once daily. Increase prednisone 10 mg BID for 10 days. documented in this encounterMissouri Delta Medical [id number] History of Present illness Narrative* Michelle Jasmine, VOCATIONAL EXAMINER-OFFICE SERVICES ASSISTANT - 06/09/2023 8:30 AM EST Ariadna Haley is a 42 y.o. female that presents to the office today for new patient evaluation asself referral for palpitations and elevated heart rates. She has a PMH of HTN, HLD, tachycardia, anemia, JOSE RAFAEL with CPAP compliance, lupus, autonomic dysfunction, arthritis, chronic back pain. She has undergone cardiac workup in the past in [place] as noted below. She also states that [...] , Rfl: ergocalciferol (Vitamin D-2) 1.25 MG (97174 UT) capsule, Take 1 capsule (50,000 Units) [...] this document. documented in this [facility] Work Phone: 1(489) 830-351201-03-2024 Instructions* Patient Instructions* Christie Phan MD - 05/26/2023 5:43 PM EST Images from the original note were not included. https://OurHouse.[employer]/tofu-bolognese/ https://nutritionstudies.org/vgr-ta-veaxcndxh-puiksqbj-iz-dwfzl-u-wiagw-ytto-randee ct-pfsmw-gbdlaqtkg/ https://www.Wriggle/blog/plantbasedkids https://Your Energy/aalsv-qerio-xfii-for-kids/ https://iPrint/ezd-ge-gcvsljgngv-dyok-spfy-tg-r-wslph-olqpn-diet/ WHAT TO EAT? Breakfast: Overnight Oats Base ingredients: 1/3 cup rolled oats, 1/3 cup plain almond milk, 1tsp kyle seeds. Optional add-ins: cinnamon, flax seeds, honey or maple syrup, nut butter, chopped nuts. Toppings: Any fresh fruit chopped. Mix together and place in refrigerator. Can make 5 at a time for the whole week. Homemade fresh oatmeal. Can also make in the crockpot. Turkmen muffin/almond butter topped with fresh berries Turkmen muffin, cooked egg/egg white, tomato, thin slice vietnamese cheese Fresh berries, hard boiled egg, whole wheat toast Plain yogurt topped with berries, unsalted nuts, drizzle of honey Whole grain toast/Turkmen muffin topped with mashed avocado and tomatoes Lunch: Dinner leftovers packed in Tupperware, side of fruit Salad mixture topped with a protein (chick breast/tuna/hard boiled egg/beans), dressing and side offruit Dinner - Refer to plate turnaround planner pictures to help select foods and portion ratios of protein, vegetables/starches. Keep it simple and rotate your favorite meals. Sheet nix meals Soups Grilled protein/vegetables/side of starch (plate turnaround planner picture) Stir can with protein, mixed vegetables, and riced cauliflower or portion controlled whole grain rice. Make your own bowls - Nepalese/Tongan/ theme [place] with Zoodles (spiralized vegetable noodles). Roasted vegetable wraps Alter traditional recipes to reflect HIGH QUALITY ingredients in the right QUANTITIES. Snacks - portion controlled: Raw veggies (can have with hummus, mashed avocado, salsa). Unsalted nuts Fruit (1 serving). (optional side of peanut butter) Air pop popcorn [place] and low fat vietnamese cheese rolled up String cheese Protein balls (mix rolled oats, nut butter, flax seeds, dash almond milk). Beverages: Water Coffee, Hot tea Unsweetened ice tea EATING OUT: Research menu online, include nutritional information. Make your order decision before getting to restaurant. Stick to recommended portions (plate turnaround planner picture). Ask for substitutions or modifications. [...] baked potato, sprouted grain bread, chick peas https://www.My1login.[employer]/article/6628086/vxeobmomyjjqx-czkx-dubo-for-beginners / https://www.My1login.[employer]/category/4274/fcnfsdhobonwo-cwhg-bickuf/ https://www.XOG/category/4300/uwabzttoenkyp-pysu-wuji-plans/ My current favorite cookbooks are documented in this encounterSelect Medical Trihealth [facility] Hospital01-03-2024 History of Present illness Narrative* Christie Phan MD - 05/26/2023 5:00 PM EST Images from the original note were not included. [facility] Follow-Up Appointment [...] the date of the service which included stax-zq-eivd patient care, completing clinical documentation, performing a medically appropriate examination, counseling and educating the patient/family/caregiver, and ordering medications, tests, or procedures. Christie Phan MD, [place], [facility] Lifestyle Medicine Specialist documented in this encounterSelect [facility]12[facility]04[facility] Miscellaneous Notes* Telephone Encounter - Renate Lawrence MA - 04/26/2023 5:26 PM EST Medication pending with new pharmacy information. documented in this encounterSelect Medical [facility]12-04-2023 History of Present illness Narrative* Christie Phan MD - 04/26/2023 4:15 PM EST Images from the original note were not included. [facility] Virtual Follow-Up [...] the date of the service which included bepn-xo-ycwy patient care, completing clinical documentation, performing a medically appropriate examination, counseling and educating the patient/family/caregiver, and ordering medications, tests, or procedures. I have communicated my name and active licensure. The patient's identity and physical location wereverified at the time of this visit. Either the patient or their legal chemical sales representative has been informed of the risks and benefits of -- and alternatives to -- treatment through a remote evaluation andconsents to proceed with the evaluation remotely. Christie Phan MD, MA, [facility] Lifestyle Medicine Specialist documented in this encounterSelect Medical [facility]12-04-2023 Nurse Note* Renate Lawrence MA - 04/26/2023 2:46 PM EST Spoke to Ariadna Haley, confirmed patient is registered on Vapps and is prepared for their appointment. Confirmed the patient has updated medications, allergies, and questionnaires via Vapps. Informed patient if there is an issue with the connection, provider will send the patient a secure link. If provider is running late, patient should remain connected to the visit. Patient verbalized understanding. documented in this [facility]11-30-2023 Miscellaneous Notes* Telephone Encounter - Enma Hamm RN - 04/22/2023 3:48 PM EST Pt called for Iron results; possible need for transfusion. Pt aware no need for iron infusion at this time. Enma Hamm RN documented in this [facility]11-24-2023 History of Present illness Narrative* Kenzie Shannon - 04/16/2023 10:55 AM EST Patient Identification confirmed: yes. Injection given and documented on JUL per provider order. Kenzie Shannon documented in this encounterSelect Medical [facility]10-27-2023 History of Present illness Narrative* Kenzie Shannon - 03/19/2023 11:06 AM EDT Patient Identification confirmed: yes. Injection given and documented on JUL per provider order. Kenzie Shannon documented in this encounterSelect Medical [facility]10-24-2023 History of Present illness Narrative* Marija Ziegler - 03/16/2023 10:13 AM EDT CMN RECEIVED BY [employer] VIA FAX, COMPLETED, AND PLACED IN PROVIDER MAILBOX FOR SIGNATURE On 2022 By Marija Ziegler S[employer] Stitcher Hand II. [employer] SENDING CMN: JOSH SIGNED AND DATED CMN, FAXED TO [employer] & CONFIRMATION PAGE RECEIVED: 03.24.23 documented in this encounterSelect Medical [facility]10-19-2023 History of Present illness Narrative* Beatriz [...] LPN In Department: RHEUMATOLOGY documented in this encounterSelect Medical [facility]10-18-2023 Miscellaneous Notes* Telephone Encounter - Christie Phan MD - 03/10/2023 2:18 PM EDT Spoke with patient. We stopped her trulicity because of side effects. She only took the cymbalta for a week. She will restart and we will see how she is doing in 2 months. Have also ordered insulin labs to check for insulin resistance. documented in this [facility]10-09-2023 Miscellaneous Notes* Telephone Encounter - Lynne Ni MD - 03/01/2023 3:27 PM EDT For chart: Eye exam 02/26/23 no ocular complication related to medication. * Telephone Encounter - Beatriz Sanchez LPN - 03/01/2023 2:38 PM EDT [facility] from [facility] Placed on your desk for review. documented in this [facility]09-29-2023 Nurse Note* Radha Kebede MA - 02/19/2023 11:48 AM EDT Patient Identification confirmed: yes. Injection given and documented on JUL per provider order. Radha Schofield MA documented in this [facility]09-29-2023 Instructions* Patient Instructions* Vera Najera MD - 02/19/2023 11:40 AM EDT B12 shot today and every 4 weeks. Continue Folic acid. Follow up in 8 Weeks - labs 1 week before. documented in this [facility]09-29-2023 History of Present illness Narrative* Vera Najera MD - 02/19/2023 11:32 AM EDT Images from the original note were not included. AMBULATORY TELEPHONE VISIT Ariadna Haley has consented to this telephone encounter. Persons Present: Patient and myself Chief Complaint/Reason: Anemia; To review recent blood work. HPI: Total Time Spent: 21 minutes Rebekah Rojas APRN.OFFICE SERVICES ASSISTANT NAME: Ariadna Haley CLINIC NO.: [id number] DATE OF SERVICE: February 19, 2023 ([place]) [...] lower lip done 2 days ago at [facility] - awaiting results. B12 [...] injections. Shefollows with multiple doctors including and pigment pusher, veterinary surgery technician, trimmer sawyer and PCP. She has been told they [...] which included preparing to see the patient, ymth-ap-yeib patient care, completing clinical documentation, performing a medically appropriate examination, counseling and educating the patient/family/caregiver, ordering medications, tests, or p rocedures, and independently interpreting results (not separately reported). Vera Najera MD, CPE Hematology and Oncology Services Provided at: [place], [place] CC: Manuel Ferris MD [address] [facility] [address] documented in this encounterSelect Medical [facility]09-26-2023 Miscellaneous Notes* Telephone Encounter - Lynne [...] Department RAYRAY INJECTION TEACHING [facility]23 7:[facility] NICK[facility] VIDEO SPEC EST 08/12/2023 9:00 AM [facility] NICKIE Last Ophthalmology Check for Plaquenil [...] diagnoses: Vitamin D deficiency documented in this encounterSelect Medical [facility]09-18-2023 Miscellaneous Notes* Telephone Encounter - Mirela Carlos - 02/08/2023 11:12 AM EDT Spoke with patient Will get labs done when she does labs in Dec for Sawyer/Onc Mailed orders for DXA to pt so [facility] [place] Scheduled Teaching visit for [...] density (1st time) patient requests order for [place] Please schedule follow up office visit for [...] Ni MD documented in this encounterSelect Medical [facility]09-14-2023 History of Present illness Narrative* Carlene Rendon - 02/04/2023 9:31 AM EDT [facility] received prescription(s) for Benlysta from Dr. Ni. Benefits investigation was conducted, indicating that a prior authorization is required by patients plan with [facility]. Encounter will be updated once prior authorization has been [facility]. Carlene Rendon [facility], Inflammatory P: [phone] F: [phone] documented in this encounterSelect Medical [facility]09-14-2023 History of Present illness Narrative* Lynne [...] visit. Either the patient or their legal chemical sales representative has been informed of the [...] metoprolol for POTs, avoid aggravating triggers, terminal computer operator pain recommendations per primary [...] Due for eye exam. Labs sent to [facility]/completed in 06/2021 (no results faxed to office, but patient pulled up results on her phone). Chronic current pain in neck, flank area, mid back, knees, legs, arms, all over pain. Better with lyrica 75mg 3times a day. Reports pain 4-12/31. Couple hrs AM stiffness. COVID vaccine [employer] 09/28/20, 10/19/20, 05/26/21. Feels safe at home. [...] COVID-19 original vaccine, age 12+ yr, monovalent ([employer] - PURPLE TOP) 09/28/2020 10/19/2020 05/26/2021 COVID-19 vaccine, age 12+ yr, bivalent ([employer]) 02/08/2022 Pneumovax no Flu shot no Tetanus [...] (33);NL cbc, cmp, negative hla b27; Outside [place] 06/2021 low vitamin D 16, vitamin b12-307;high [...] metoprolol for POTs, avoid aggravating triggers, terminal computer operator pain recommendations per primary [...] (200mg) daily with a meal Please see cable placer every 6-12months while on Hydroxychloroquine. Start azathioprine [...] video & audio (virtual) or phone or lonb-hy-oufw patient care, completing clinical documentation, obtaining and/or [...] De La Torre CNP;Dr.Douglas Sai Ferris MD [facility] AMBULATORY VISIT INTAKE QUESTIONNAIRE Question [...] Workers' Compensation? No Do you need an computer systems architect? No [facility] ZOOM MESSAGE Question 02/02/2023 10:32 [...] Forearm or Lower Left Leg. [facility] 10 ADULT SHORT FORM V1.0 GLOBAL [...] < or = 5) documented in this encounterSelect Medical [facility]09-14-2023 Instructions* Patient Instructions* Lynne Ni MD [...] (200mg) daily with a meal Please see cable placer every 6-12months while on Hydroxychloroquine. azathioprine daily [...] your usual activities immediately. documented in this encounterSelect Medical [facility]09-05-2023 Miscellaneous Notes* Telephone Encounter - Maynor Bryson MA - 01/26/2023 7:46 AM EDT patient has viewed the [employer] message per [employer]. * Telephone Encounter - Lynne Ni MD [...] Ni MD documented in this encounterSelect Medical [facility]09-01-2023 Nurse Note* Rdaha Kebede MA - 01/22/2023 12:17 PM EDT Patient Identification confirmed: yes. Injection given and documented on JUL per provider order. Radha Schofield MA documented in this encounterSelect Medical [facility]08-22-2023 Miscellaneous Notes* Telephone Encounter - Christie [...] pharmacy. Milagro Mendiola MA documented in this encounterSelect Medical [facility]08-11-2023 History of Present illness Narrative* Misty Nelson MD - 01/01/2023 10:51 AM EDT VIRTUAL VISIT PROGRESS NOTE This is a virtual visit using Vapps video visit. It required patient-provider interaction for themedical decision making as documented below. I have communicated my name and active licensure. The patient's identity and physical location wereverified at the time of this visit. Either the patient or their legal chemical sales representative has been informed of the [...] otitis or sinusitis No pneumonia She sees veterinary surgery technician and was diagnosed with lupus She is on Plaquenil, azathioprine Prednisone 10mg once daily for the past year; every few months she gets treated with higher doses of prednisone for flares of her symptoms The medications seem to help the body aches She saw the interactive developer Treated with B12 and folic acid We [...] visit. Misty Nelson MD documented in this encounterSelect Medical [facility]07-28-2023 Miscellaneous Notes* Telephone Encounter - Rebekah Rojas APRN.OFFICE SERVICES ASSISTANT - 12/18/2022 10:48 AM EDT Spoke with patient this morning, 12/18/2022. Rebekah Roajs APRN.TRUE * Telephone Encounter - Lidia Argueta RN - 12/18/2022 9:31 AM EDT Pt called 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 service last evening stating she was suppose to have a phone call with Rebekah at 330 and never received a call. Pt is still waiting (536 pm 12/17/22). Please advise Lidia Argueta RN documented in this encounterSelect Medical [facility]07-28-2023 History of Present illness Narrative* Rebekah [...] Total Time Spent: 21 minutes Rebekah Rojas APRN.OFFICE SERVICES ASSISTANT NAME: Ariadna Haley CLINIC NO.: [id number] DATE OF SERVICE: October 22, 2022 ([place]) [...] lower lip done 2 days ago at [facility] - awaiting results. B12 [...] injections. Shefollows with multiple doctors including and pigment pusher, veterinary surgery technician, trimmer sawyer and PCP. She has been told they [...] which included preparing to see the patient, ufic-qu-ohqx patient care, completing clinical documentation, performing a medically appropriate examination, counseling and educating the patient/family/caregiver, ordering medications, tests, or p rocedures, and independently interpreting results (not separately reported). Vera Najera MD, CPE Hematology and Oncology Services Provided at: [place],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 (BMI 30-39.9)documented as of this encounter (statuses as of 03/04/2022) [facility] of Past illness Narrative* ProblemNoted Date Resolved DateObesity (BMI 30-39.9)documented as of this encounter (statuses as of 03/05/2022) [facility] of Past illness Narrative* ProblemNoted Date Resolved DateObesity (BMI 30-39.9)documented as of this encounter (statuses as of 03/06/2022) [facility] of Past illness Narrative* ProblemNoted Date Resolved DateObesity (BMI 30-39.9)documented as of this encounter (statuses as of 03/09/2022) [facility] of Past illness Narrative* ProblemNoted Date Resolved DateObesity (BMI 30-39.9)documented as of this encounter (statuses as of 03/10/2022) [facility] Narrative* ProblemNoted Date Resolved DateObesity (BMI 30-39.9)documented as of this encounter (statuses as of 03/10/2022) [facility] of [facility] Narrative* ProblemNoted Date Resolved DateObesity (BMI 30-39.9)documented as of this encounter (statuses as of 03/12/2022) [facility] Narrative* ProblemNoted Date Resolved DateObesity (BMI 30-39.9)documented as of this encounter (statuses as of 03/18/2022) [facility] of [facility] Narrative* ProblemNoted Date Resolved DateObesity (BMI 30-39.9)documented as of this encounter (statuses as of 03/22/2022) [address]08-2015 History of Past illness Narrative* ProblemNoted Date Resolved DateObesity (BMI 30-39.9)documented as of this encounter (statuses as of 03/30/2022) [facility] of Past illness Narrative* ProblemNoted Date Resolved DateObesity (BMI 30-39.9)documented as of this encounter (statuses as of 03/30/2022) [address]08[address]2015 History of Past illness Narrative* ProblemNoted Date Resolved DateObesity (BMI 30-39.9)documented as of this encounter (statuses as of 04/03/2022) [facility] Narrative* ProblemNoted Date Resolved DateObesity (BMI 30-39.9)documented as of this encounter (statuses as of 04/03/2022) [facility] Narrative* ProblemNoted Date Resolved DateObesity (BMI 30-39.9)documented as of this encounter (statuses as of 04/22/2022) [facility] Narrative* ProblemNoted Date Resolved DateObesity (BMI 30-39.9)documented as of this encounter (statuses as of 04/24/2022) [facility] Narrative* ProblemNoted Date Resolved DateObesity (BMI 30-39.9)documented as of this encounter (statuses as of 05/05/2022) [facility] Narrative* ProblemNoted Date Resolved DateObesity (BMI 30-39.9)documented as of this encounter (statuses as of 05/05/2022) [facility] Narrative* ProblemNoted Date Resolved DateObesity (BMI 30-39.9)documented as of this encounter (statuses as of 05/05/2022) [facility] Narrative* ProblemNoted Date Resolved DateObesity (BMI 30-39.9)documented as of this encounter (statuses as of 05/26/2022) [facility] Narrative* ProblemNoted Date Resolved DateObesity (BMI 30-39.9)documented as of this encounter (statuses as of 05/27/2022) [facility] Narrative* ProblemNoted Date Resolved DateObesity (BMI 30-39.9)documented as of this encounter (statuses as of 07/22/2022) [facility] Narrative* ProblemNoted Date Resolved DateObesity (BMI 30-39.9)documented as of this encounter (statuses as of 07/25/2022) [facility] Narrative* ProblemNoted Date Resolved DateObesity (BMI 30-39.9)documented as of this encounter (statuses as of 07/27/2022) [facility] Narrative* ProblemNoted Date Resolved DateObesity (BMI 30-39.9)documented as of this encounter (statuses as of 07/28/2022) [facility] Narrative* ProblemNoted Date Resolved DateObesity (BMI 30-39.9)documented as of this encounter (statuses as of 08/10/2022) [facility] Narrative* ProblemNoted Date Resolved DateObesity (BMI 30-39.9)documented as of this encounter (statuses as of 08/18/2022) [facility] Narrative* ProblemNoted Date Resolved DateObesity (BMI 30-39.9)documented as of this encounter (statuses as of 08/19/2022) [facility] Narrative* ProblemNoted Date Resolved DateObesity (BMI 30-39.9)documented as of this encounter (statuses as of 08/27/2022) [facility] Narrative* ProblemNoted Date Resolved DateObesity (BMI 30-39.9)documented as of this encounter (statuses as of 08/29/2022) [facility] Narrative* ProblemNoted Date Resolved DateObesity (BMI 30-39.9)documented as of this encounter (statuses as of 08/31/2022) [facility] Narrative* ProblemNoted Date Resolved DateObesity (BMI 30-39.9)documented as of this encounter (statuses as of 09/08/2022) [address]08[address]2015 History of Past illness Narrative* ProblemNoted Date Resolved DateObesity (BMI 30-39.9)documented as of this encounter (statuses as of 09/08/2022) [facility] Narrative* ProblemNoted Date Resolved DateObesity (BMI 30-39.9)documented as of this encounter (statuses as of 09/24/2022) [facility] Narrative* ProblemNoted Date Resolved DateObesity (BMI 30-39.9)documented as of this encounter (statuses as of 10/22/2022) [address]08[address]2015 History of Past illness Narrative* ProblemNoted Date Resolved DateObesity (BMI 30-39.9)documented as of this encounter (statuses as of 10/25/2022) [facility] Narrative* ProblemNoted Date Resolved DateObesity (BMI 30-39.9)documented as of this encounter (statuses as of 11/19/2022) [address]08[address] History of Past illness Narrative* ProblemNoted Date Resolved DateObesity (BMI 30-39.9)documented as of this encounter (statuses as of 11/25/2022) [facility] Narrative* ProblemNoted Date Diagnosed DateResolved DateObesity (BMI 30-39.9)documented as of this encounter (statuses as of 12/08/2022) [facility] Narrative* ProblemNoted Date Diagnosed DateResolved DateObesity (BMI 30-39.9)documented as of this encounter (statuses as of 12/18/2022) [facility] Narrative* ProblemNoted Date Diagnosed DateResolved DateObesity (BMI 30-39.9)documented as of this encounter (statuses as of 12/18/2022) [facility] Narrative* ProblemNoted Date Diagnosed DateResolved DateObesity (BMI 30-39.9)documented as of this encounter (statuses as of 12/21/2022) [facility] Narrative* ProblemNoted Date Diagnosed DateResolved DateObesity (BMI 30-39.9)documented as of this encounter (statuses as of 12/22/2022) [facility] Narrative* ProblemNoted Date Diagnosed DateResolved DateObesity (BMI 30-39.9)documented as of this encounter (statuses as of 01/02/2023) [facility] Narrative* ProblemNoted Date Diagnosed DateResolved DateObesity (BMI 30-39.9)documented as of this encounter (statuses as of 01/13/2023) [facility] Narrative* ProblemNoted Date Diagnosed DateResolved DateObesity (BMI 30-39.9)documented as of this encounter (statuses as of 01/22/2023) [facility] Narrative* ProblemNoted Date Diagnosed DateResolved DateObesity (BMI 30-39.9)documented as of this encounter (statuses as of 01/26/2023) [facility] [facility] of [facility] Narrative* ProblemNoted Date Diagnosed DateResolved DateObesity (BMI 30-39.9)documented as of this encounter (statuses as of 02/04/2023) [facility] History of Past illness Narrative* ProblemNoted Date Diagnosed DateResolved DateObesity (BMI 30-39.9)documented as of this encounter (statuses as of 02/04/2023) [facility] History of Past illness Narrative* ProblemNoted Date Diagnosed DateResolved DateObesity (BMI 30-39.9)documented as of this encounter (statuses as of 02/07/2023) [facility] History of Past illness Narrative* ProblemNoted Date Diagnosed DateResolved DateObesity (BMI 30-39.9)documented as of this encounter (statuses as of 02/08/2023) [facility] History of Past illness Narrative* ProblemNoted Date Diagnosed DateResolved DateObesity (BMI 30-39.9)documented as of this encounter (statuses as of 02/16/2023) [facility] History of Past illness Narrative* ProblemNoted Date Diagnosed DateResolved DateObesity (BMI 30-39.9)documented as of this encounter (statuses as of 02/19/2023) [address]08-2015 History of Past illness Narrative* ProblemNoted Date Diagnosed DateResolved DateObesity (BMI 30-39.9)documented as of this encounter (statuses as of 02/21/2023) [facility] History of Past illness Narrative* ProblemNoted Date Diagnosed DateResolved DateObesity (BMI 30-39.9)documented as of this encounter (statuses as of 03/02/2023) [facility] Diagnosis Other [...] unspecified [facility] Diagnosis Swelling of lymph nodes- Primary Enlargement of lymph nodes Other systemic lupus erythematosus with other organ involvement (HCC) On prednisone therapy Hair loss Alopecia, unspecified Bilateral sacroiliitis (HCC) Long-term use of Plaquenil Encounter for long-term (current) use of other medications [facility] Diagnosis Vitamin B12 deficiency- Primary Other B-complex deficiencies Vitamin D deficiency Unspecified vitamin D deficiency Elevated sed rate Elevated sedimentation rate Elevated C-reactive protein (CRP) documented [facility] Diagnosis 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 Other vitamin B12 deficiency anemia Somnolence, daytime Hypersomnia, unspecified Snoring Other dyspnea and respiratory abnormality Chronic fatigue and malaise Chronic fatigue syndrome Obesity, unspecified classification, unspecified obesity type, unspecified whether serious comorbidity present documented [facility]* Diagnosis Obesity, Class II, BMI 35-39.9- [...] nonspecific immunological findings [facility] Diagnosis Megaloblastic anemia due to vitamin B12 deficiency- Primary Other vitamin B12 deficiency anemia High total serum IgM [facility] Diagnosis Raised level of immunoglobulins- Primary Other and unspecified nonspecific immunological findings Wound healing, delayed Open wound(s) (multiple) of unspecified site(s), complicated Current smoker Tobacco use disorder [facility] Diagnosis Family history of genetic disease- Primary Family history of other condition [facility] Diagnosis High total serum IgM- Primary Elevated sed rate Elevated sedimentation rate Somnolence, daytime Hypersomnia, unspecified JOSE RAFAEL (obstructive sleep apnea) Obstructive sleep apnea (adult) (pediatric) [facility]* Diagnosis Megaloblastic anemia due to vitamin B12 deficiency- Primary Other vitamin B12 deficiency anemia Elevated sed rate Elevated sedimentation rate [facility] Diagnosis Megaloblastic anemia due to vitamin B12 deficiency- Primary Other vitamin B12 deficiency anemia Elevated sed rate Elevated sedimentation rate High total serum IgM Chronic fatigue and malaise Chronic fatigue syndrome [facility] Diagnosis JOSE RAFAEL (obstructive sleep apnea)- Primary Obstructive sleep apnea (adult) (pediatric) [facility] Diagnosis Other systemic lupus erythematosus with other organ involvement (HCC)- Primary Family history of Crohn's disease Family history of other digestive disorders Fibromyalgia Mylagia and myositis, unspecified [facility]* Diagnosis Other systemic lupus erythematosus with other organ involvement (HCC)- Primary Elevated LFTs Other abnormal blood chemistry Anemia of chronic disease Anemia of other chronic disease 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 Encounter for long-term (current) use of other medications [facility] Diagnosis Megaloblastic anemia due to vitamin B12 deficiency- Primary Other vitamin B12 deficiency anemia Elevated sed rate Elevated sedimentation rate [facility] Diagnosis Megaloblastic anemia due to vitamin B12 deficiency- Primary Other vitamin B12 deficiency anemia Elevated sed rate Elevated sedimentation rate High total serum IgM Chronic fatigue and malaise Chronic fatigue syndrome JOSE RAFAEL (obstructive sleep apnea) Obstructive sleep apnea (adult) (pediatric) documented [facility] this [facility] Diagnosis Vitamin D deficiency Unspecified vitamin D deficiency [facility] Diagnosis Obesity, Class III, BMI >= 40- Primary Morbid obesity Polypharmacy Encounter for long-term (current) use of other medications Pre-diabetes Other abnormal glucose documented [facility] this [facility]* Diagnosis Megaloblastic anemia due to vitamin B12 deficiency- Primary Other vitamin B12 deficiency anemia Elevated sed rate Elevated sedimentation rate documented [facility] this [facility] Diagnosis Megaloblastic anemia due to vitamin B12 deficiency- Primary Other vitamin B12 deficiency anemia Elevated sed rate Elevated sedimentation rate documented [facility] this [facility] Diagnosis Megaloblastic anemia due to vitamin B12 deficiency- Primary Other vitamin B12 deficiency anemia Elevated sed rate Elevated sedimentation rate High total serum IgM Chronic fatigue and malaise Chronic fatigue syndrome Obstructive sleep apnea syndrome Obstructive sleep apnea (adult) (pediatric) [facility] Diagnosis Megaloblastic anemia due to vitamin B12 deficiency- Primary Other vitamin B12 deficiency anemia Elevated sed rate Elevated sedimentation rate documented [facility] Diagnosis Other systemic lupus erythematosus with other organ involvement (HCC) Encounter for group home current use of azathioprine Encounter for long-term (current) use of other medications documented [facility] this [facility]* Diagnosis Megaloblastic anemia due to vitamin B12 deficiency- Primary Other vitamin B12 deficiency anemia Chronic fatigue and malaise Chronic fatigue syndrome documented [facility] this [facility] Diagnosis High total serum IgM- Primary Low serum IgG for age Current smoker Tobacco use disorder documented [facility] this [facility]* Diagnosis Obesity, Class II, BMI 35-39.9 Obesity, unspecified Prediabetes Other abnormal glucose documented [facility] this [facility]* Diagnosis Megaloblastic [...] C-reactive protein (CRP) [facility] Diagnosis Other systemic lupus erythematosus [...] Bilateral wrist pain 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, 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 Encounter for long-term (current) use of steroids Steroid-induced osteoporosis Other osteoporosis 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 [facility] Diagnosis Systemic lupus erythematosus with other organ involvement (HCC)- Primary [facility]* Diagnosis Megaloblastic anemia due to vitamin B12 deficiency- Primary Other vitamin B12 deficiency anemia High total serum IgM Elevated sed rate Elevated sedimentation rate documented [facility] Diagnosis Other systemic lupus erythematosus with other organ involvement (HCC)- Primary [facility] Diagnosis Other systemic lupus erythematosus with other organ involvement (HCC) Encounter for group home current use of azathioprine Encounter for long-term (current) use of other medications [facility] Diagnosis Megaloblastic anemia due to vitamin B12 deficiency- Primary Other vitamin B12 deficiency anemia Elevated sed rate Elevated sedimentation rate [facility]* Diagnosis Megaloblastic anemia due to [...] Chronic pain syndrome documented in this encounter [facility] note* Diagnosis Systemic lupus erythematosus, unspecified SLE type, unspecified organ involvement status (HCC)- Primary [facility] Diagnosis Megaloblastic anemia due to vitamin B12 deficiency- Primary Other vitamin B12 deficiency anemia Elevated sed rate Elevated sedimentation rate documented in this encounter [facility] note* Diagnosis Megaloblastic anemia due to vitamin B12 deficiency- Primary Other vitamin B12 deficiency anemia Elevated sed rate Elevated sedimentation rate documented in this encounter [facility] note* Diagnosis Obesity, Class III, BMI >= 40- Primary Morbid obesity FUO (fever of unknown origin) Fever, unspecified Other chronic pain [facility] Diagnosis Obesity, Class III, BMI >= 40 Morbid obesity [facility] Diagnosis Obesity, Class III, BMI >= 40- Primary Morbid obesity Other chronic pain documented in this encounter [facility] note* Diagnosis Irregular heart rate- Primary Essential hypertension Unspecified essential hypertension Autonomic dysfunction Obstructive sleep apnea syndrome Obstructive sleep apnea (adult) (pediatric) Primary hypertension Unspecified essential hypertension documented in this encounter [facility] Work Phone: Evaluation note* Diagnosis Autoimmune disease (CMS/HCC)- Primary Autoimmune disease, not elsewhere classified Autonomic dysfunction Lumbosacral radiculopathy Thoracic or lumbosacral neuritis or radiculitis, unspecified Bilateral leg weakness Muscle weakness (generalized) [facility] Diagnosis Shortness of breath- Primary Paroxysmal supraventricular tachycardia PAC (premature atrial contraction) Supraventricular premature beats Current smoker Systemic lupus erythematosus, unspecified SLE type, unspecified organ involvement status (CMS/HCC) Palpitations Obstructive sleep apnea syndrome Obstructive sleep apnea (adult) (pediatric) Morbid obesity (CMS/HCC) Morbid obesity Bilateral lower extremity edema documented in this encounter [facility] Work Phone: Evaluation note* Diagnosis Megaloblastic anemia due to vitamin B12 deficiency- Primary Other vitamin B12 deficiency anemia Elevated sed rate Elevated sedimentation rate [facility] Diagnosis Systemic lupus erythematosus with other organ involvement (HCC)- Primary [facility] Diagnosis Systemic lupus erythematosus with other organ involvement (HCC)- Primary documented [facility] this encounter [facility]* Diagnosis Megaloblastic anemia due to vitamin B12 deficiency- Primary Other vitamin B12 deficiency anemia Elevated sed rate Elevated sedimentation rate documented in this encounter [facility]* Diagnosis Other systemic lupus erythematosus with other organ involvement (HCC)- Primary Vitamin D deficiency Unspecified vitamin D deficiency Elevated LFTs Other abnormal blood chemistry Anemia of chronic disease Anemia of other chronic disease Elevated sed rate Elevated sedimentation rate Elevated C-reactive protein (CRP) documented [facility] this [facility]* Diagnosis Megaloblastic anemia due to vitamin B12 deficiency- Primary Other vitamin B12 deficiency anemia Obstructive sleep apnea syndrome Obstructive sleep apnea (adult) (pediatric) Chronic fatigue and malaise Chronic fatigue syndrome High total serum IgM JOSE RAFAEL (obstructive sleep apnea) Obstructive sleep apnea (adult) (pediatric) Somnolence, daytime Hypersomnia, unspecified documented [facility] this encounter [facility]* Diagnosis Elevated sed rate- Primary Elevated sedimentation rate Megaloblastic anemia due to vitamin B12 deficiency Other vitamin B12 deficiency anemia documented [facility] this [facility]* Diagnosis Other [...] other medications 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 Encounter for long-term (current) use of steroids 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 Bilateral hand pain Pain in limb History of vitamin D deficiency Personal history of nutritional deficiency documented [facility] this [facility]* Diagnosis Elevated sed rate- Primary Elevated sedimentation rate Megaloblastic anemia due to vitamin B12 deficiency Other vitamin B12 deficiency anemia documented [facility] this [facility]* Diagnosis Other systemic lupus erythematosus with other organ involvement (HCC) 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 Encounter for long-term (current) use of other medications [facility] Diagnosis Systemic lupus erythematosus with other organ involvement (HCC)- Primary [facility] Diagnosis Vitamin B12 deficiency- Primary Other B-complex deficiencies [facility] Diagnosis Elevated sed rate- Primary Elevated sedimentation rate Megaloblastic anemia due to vitamin B12 deficiency Other vitamin B12 deficiency anemia [facility] Diagnosis Elevated sed rate- Primary Elevated sedimentation rate Megaloblastic anemia due to vitamin B12 deficiency Other vitamin B12 deficiency anemia [facility]* Diagnosis Megaloblastic anemia due to vitamin B12 deficiency- Primary Other vitamin B12 deficiency anemia Elevated sed rate Elevated sedimentation rate Obstructive sleep apnea syndrome Obstructive sleep apnea (adult) (pediatric) [facility] Diagnosis Elevated LFTs- Primary Other abnormal blood chemistry Elevated C-reactive protein (CRP) Elevated sed rate Elevated sedimentation rate Vitamin D deficiency Unspecified vitamin D deficiency Screening-pulmonary TB Screening examination for pulmonary tuberculosis [facility]* Diagnosis Other systemic lupus erythematosus with other organ involvement (HCC) [facility]* Diagnosis Systemic lupus erythematosus with other organ involvement (HCC)- Primary [facility]* Diagnosis Elevated sed rate- Primary Elevated sedimentation rate Megaloblastic anemia due to vitamin B12 deficiency Other vitamin B12 deficiency anemia documented [facility]* Diagnosis Pseudomonas infection- Primary Pseudomonas infection in conditions classified elsewhere and of unspecified site Other systemic lupus erythematosus with other organ involvement (HCC) On prednisone therapy Long-term use of Plaquenil Encounter for long-term (current) use of other medications [facility] Diagnosis Onset Date Resolution Status Lupus acuteRecurrent Clostridioides difficile diarrheaacuteNipple discharge in female acuteRecurrent Clostridioides difficile diarrheaacuteLumbosacral spondylosis acuteOther chronic painacuteSacroiliitisacute [facility] Work Phone: Evaluation note* Diagnosis JOSE RAFAEL (obstructive sleep apnea)- Primary Obstructive sleep apnea (adult) (pediatric) Somnolence, daytime Hypersomnia, unspecified documented [facility] this [facility]* Diagnosis Systemic lupus erythematosus with other organ involvement (HCC)- Primary documented [facility] this [facility]* Diagnosis Systemic lupus erythematosus with other organ involvement (HCC)- Primary documented [facility] this [facility]* Diagnosis Onset Date Resolution Status Nipple discharge in female acuteRecurrent Clostridioides difficile diarrheaacuteLumbosacral spondylosis acuteOther chronic painacuteSacroiliitisacute [facility] Work Phone: Evaluation note* Diagnosis Elevated sed rate- Primary Elevated sedimentation rate Megaloblastic anemia due to vitamin B12 deficiency Other vitamin B12 deficiency anemia documented [facility]* Diagnosis Onset Date Resolution Status Nipple discharge in female acuteRecurrent Clostridioides difficile diarrheaacuteLumbosacral spondylosis acuteOther chronic painacuteSacroiliitisacuteLumbosacral spondylosisacuteOther chronic painacuteSacroiliitisacute [facility] Work Phone: Evaluation note* Diagnosis Lumbosacral radiculopathy at L5 Degenerative disc disease, lumbar Cervical radiculopathy at C5 [facility] Diagnosis Onset Date Resolution Status Lumbosacral spondylosis acuteOther chronic painacuteSacroiliitisacuteLumbosacral spondylosisacuteOther chronic painacuteSacroiliitisacute [facility] Work Phone: Evaluation note* Diagnosis Other systemic lupus erythematosus with other organ involvement (HCC) documented in this encounter [facility]* Diagnosis Other [...] erythematosus [facility]* Diagnosis Nipple discharge Other sign and symptom in breast documented in this encounter [facility]* Diagnosis Elevated sed rate- Primary Elevated sedimentation rate Megaloblastic anemia due to vitamin B12 deficiency Other vitamin B12 deficiency anemia [facility] Diagnosis Abnormal uterine bleeding (AUB) Menorrhagia with regular cycle documented in this encounter [facility]* Diagnosis Megaloblastic anemia due to vitamin B12 deficiency- Primary Other vitamin B12 deficiency anemia High total serum IgM JOSE RAFAEL (obstructive sleep apnea) Obstructive sleep apnea (adult) (pediatric) Elevated sed rate Elevated sedimentation rate Hypogammaglobulinemia (HCC) Hypogammaglobulinaemia, unspecified Frequent infections [facility] Diagnosis Oral thrush- Primary Candidiasis of mouth documented in this encounter [facility]* Diagnosis Oral thrush- Primary Candidiasis of mouth documented in this encounter [facility]* Diagnosis Systemic lupus erythematosus with other organ involvement (HCC)- Primary [facility]* Diagnosis LPRD (laryngopharyngeal reflux disease)- Primary Acute laryngitis, without mention of obstruction Acute otalgia, right documented in this encounter [facility]* Diagnosis Autoimmune disease ([facility]/HCC) Autoimmune disease, not elsewhere classified Fibromyalgia Unspecified myalgia and myositis Numbness Disturbance of skin sensation documented in this encounter [facility]* Diagnosis Lumbosacral radiculopathy at L5- Primary Degenerative disc disease, lumbar Cervical radiculopathy at C5 documented in this encounter [facility]* Diagnosis Degenerative disc disease, lumbar- Primary Lumbosacral radiculopathy at L5 documented in this encounter [facility]* Diagnosis Frequent infections- Primary Megaloblastic anemia due to vitamin B12 deficiency Other vitamin B12 deficiency anemia Elevated sed rate Elevated sedimentation rate Hypogammaglobulinemia (HCC) Hypogammaglobulinaemia, unspecified Bilateral leg weakness Other musculoskeletal symptoms referable to limbs Discoid lupus erythematosus Lupus erythematosus [facility] Diagnosis Well woman exam with routine gynecological exam Routine gynecological examination Breast cancer screening by mammogram Breast nodule Other (abnormal) findings on radiological examination of breast [facility] Diagnosis Megaloblastic anemia due to vitamin B12 deficiency- Primary Other vitamin B12 deficiency anemia Hypogammaglobulinemia (HCC) Hypogammaglobulinaemia, unspecified Positive blood cultures Bacteremia Malaise and fatigue Other malaise and fatigue SOB (shortness of breath) Shortness of breath [facility] Diagnosis Elevated sed rate- Primary Elevated sedimentation rate Megaloblastic anemia due to vitamin B12 deficiency Other vitamin B12 deficiency anemia Hypogammaglobulinemia (HCC) Hypogammaglobulinaemia, unspecified Frequent infections Bilateral leg weakness Other musculoskeletal symptoms referable to limbs Discoid lupus erythematosus Lupus erythematosus documented [facility] this [facility]* Diagnosis Diarrhea, unspecified type- Primary Abdominal pressure Abdominal pain, unspecified site documented [facility] this [facility]* Diagnosis Other iron deficiency anemia- Primary documented [facility]* Diagnosis Other systemic lupus erythematosus with other organ involvement (HCC) documented [facility]* Diagnosis Systemic lupus erythematosus with other organ involvement (HCC)- Primary documented [facility]* Diagnosis Systemic lupus erythematosus (CMS-HCC)- Primary Cold extremities Pain of lower extremity, unspecified laterality Rheumatoid arthritis, involving unspecified site, unspecified whether rheumatoid factor present ([facility]-HCC) Current smoker 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 [facility] Diagnosis Systemic lupus erythematosus (CMS-HCC)- Primary Cold extremities Pain of lower extremity, unspecified laterality Rheumatoid arthritis, involving unspecified site, unspecified whether rheumatoid factor present (CMS-HCC) Current smoker 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 Peripheral vascular disease, unspecified (CMS-HCC)- Primary Peripheral vascular disease, unspecified Cold extremities Systemic lupus erythematosus (CMS-HCC) [facility] Diagnosis Other systemic lupus erythematosus with other organ involvement (HCC)- Primary Vitamin D deficiency Unspecified vitamin D deficiency Elevated LFTs Other abnormal blood chemistry Anemia of chronic disease Anemia of other chronic disease Elevated sed rate Elevated sedimentation rate Elevated C-reactive protein (CRP) documented [facility]* Diagnosis Onset Date Resolution Status Admit Date Lumbosacral spondylosis acuteFebruary 2024 3:16pmOther chronic painacuteFebruary 2024 3:16pm SacroiliitisacuteFebruary 2024 3:16pm [facility] Work Phone: Evaluation note* Diagnosis Elevated sed rate- Primary Elevated sedimentation rate Megaloblastic anemia due to vitamin B12 deficiency Other vitamin B12 deficiency anemia Frequent infections Hypogammaglobulinemia (HCC) Hypogammaglobulinaemia, unspecified Bilateral leg weakness Other musculoskeletal symptoms referable to limbs Discoid lupus erythematosus Lupus erythematosus [facility] Diagnosis LPRD (laryngopharyngeal reflux disease) Other diseases of larynx Dry mouth Disturbance of salivary secretion Current smoker Tobacco use disorder Abnormal mouth sensation Other and unspecified diseases of the oral soft tissues [facility] Diagnosis Nipple discharge- Primary Other sign and symptom in breast Other systemic lupus erythematosus with other organ involvement (HCC) On prednisone therapy Long-term use of Plaquenil Encounter for long-term (current) use of other medications documented [facility]* Diagnosis Hidradenitis suppurativa- Primary Hidradenitis Other seborrheic dermatitis Lupus erythematosus tumidus (CMS/HCC) Rash and other nonspecific skin eruption Capillary angioma Nevus, non-neoplastic Neoplasm of uncertain behavior of skin [facility] Sinus tachycardia- Primary Other specified cardiac dysrhythmias Shortness of breath Paroxysmal supraventricular tachycardia (CMS-HCC) Paroxysmal supraventricular tachycardia Essential hypertension Unspecified essential hypertension Obstructive sleep apnea syndrome Obstructive sleep apnea (adult) (pediatric) Morbid obesity (Multi) Morbid obesity Current smoker documented in this encounter [facility] Work Phone: Evaluation note* Diagnosis Elevated sed rate- Primary Elevated sedimentation rate Megaloblastic anemia due to vitamin B12 deficiency Other vitamin B12 deficiency anemia Frequent infections Hypogammaglobulinemia (HCC) Hypogammaglobulinaemia, unspecified Bilateral leg weakness Other musculoskeletal symptoms referable to limbs Discoid lupus erythematosus Lupus erythematosus documented [facility] Diagnosis Systemic lupus erythematosus with other organ involvement (HCC)- Primary [facility]* Diagnosis Vitamin B12 deficiency- Primary Other B-complex deficiencies Other iron deficiency anemia Hypogammaglobulinemia (HCC) Hypogammaglobulinaemia, unspecified documented [facility]* Diagnosis Other systemic lupus erythematosus with other organ involvement (HCC) documented [facility]* Diagnosis Thyroid nodule (CMS/HCC)- Primary Nontoxic uninodular goiter LPRD (laryngopharyngeal reflux disease) Acute laryngitis, without mention of obstruction [facility]* Diagnosis Hypogammaglobulinemia (HCC)- Primary Hypogammaglobulinaemia, unspecified Vitamin B12 deficiency Other B-complex deficiencies Other iron deficiency anemia Megaloblastic anemia due to vitamin B12 deficiency Other vitamin B12 deficiency anemia documented [facility] this [facility]* Diagnosis Frequent infections- Primary Hypogammaglobulinemia (HCC) Hypogammaglobulinaemia, unspecified Bilateral leg weakness Other musculoskeletal symptoms referable to limbs Discoid lupus erythematosus Lupus erythematosus Elevated sed rate Elevated sedimentation rate Megaloblastic anemia due to vitamin B12 deficiency Other vitamin B12 deficiency anemia documented [facility]* Diagnosis Other systemic lupus erythematosus with other organ involvement (HCC)- Primary documented [facility]* Diagnosis Other systemic lupus erythematosus with other organ involvement (HCC) documented [facility] this [facility]* Diagnosis Systemic lupus erythematosus with other organ involvement (HCC)- Primary documented [facility]* Diagnosis Fibromyalgia- Primary Mylagia and myositis, unspecified Family history of disease of aorta Family history of cancer Family history of unspecified malignant neoplasm documented [facility] this [facility]* Diagnosis Frequent infections- Primary Hypogammaglobulinemia (HCC) [...] vitamin D deficiency documented [facility] this [facility]* Diagnosis Other systemic lupus erythematosus with other organ involvement (HCC)- Primary documented [facility]* Diagnosis Other [...] deficiency documented [facility] this [facility]* Diagnosis Other [...] both feet 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 Encounter for long-term (current) use of steroids Bilateral hand pain Pain in limb Family history of Crohn's disease Family history of other digestive disorders 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 Bilateral wrist pain 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, forearm documented [facility] this [facility]* Diagnosis Other systemic lupus erythematosus with other organ involvement (HCC)- Primary documented [facility] this [facility]* Diagnosis Generalized articular hypermobility- Primary Other joint derangement, not elsewhere classified, multiple sites Chronic pain syndrome Discoid lupus erythematosus Lupus erythematosus Family history of pneumothorax in son Family history of other condition Family history of cancer Family history of unspecified malignant neoplasm Family history of mild aortic dilation in daughter Family history of other cardiovascular diseases [facility]* Diagnosis Elevated sed rate- Primary Elevated sedimentation rate Megaloblastic anemia due to vitamin B12 deficiency Other vitamin B12 deficiency anemia Frequent infections Hypogammaglobulinemia (HCC) Hypogammaglobulinaemia, unspecified Bilateral leg weakness Other musculoskeletal symptoms referable to limbs Discoid lupus erythematosus Lupus erythematosus documented in this encounter [facility]* Diagnosis Other systemic lupus erythematosus with other organ involvement (HCC)- Primary documented in this [facility]* Diagnosis Hypogammaglobulinemia (HCC)- Primary Hypogammaglobulinaemia, unspecified documented in this encounter [facility]* Diagnosis Hidradenitis suppurativa- Primary Hidradenitis Pain Generalized pain Acne vulgaris Other acne [facility]* Diagnosis Hypogammaglobulinemia (HCC)- Primary Hypogammaglobulinaemia, unspecified Vitamin B12 deficiency Other B-complex deficiencies Other iron deficiency anemia Malaise and fatigue Other malaise and fatigue Shortness of breath Other specified disorders of breast Pre-diabetes Other abnormal glucose Gastro-esophageal reflux disease without esophagitis Esophageal reflux documented [facility] this [facility]* Diagnosis Elevated sed rate- Primary Elevated sedimentation rate Megaloblastic anemia due to vitamin B12 deficiency Other vitamin B12 deficiency anemia Frequent infections Hypogammaglobulinemia (HCC) Hypogammaglobulinaemia, unspecified Bilateral leg weakness Other musculoskeletal symptoms referable to limbs Discoid lupus erythematosus Lupus erythematosus documented in this [facility]* Diagnosis Other systemic lupus erythematosus with other organ involvement (HCC)- Primary documented in this [facility]* Diagnosis Other [...] for pulmonary tuberculosis documented [facility] this [facility]* Diagnosis Other systemic lupus erythematosus with other organ involvement (HCC)- Primary Elevated LFTs Other abnormal blood chemistry Anemia of chronic disease Anemia of other chronic disease Elevated C-reactive protein (CRP) Elevated sed rate Elevated sedimentation rate Vitamin D deficiency Unspecified vitamin D deficiency documented [facility] this [facility]* Diagnosis Frequent infections- Primary Hypogammaglobulinemia (HCC) Hypogammaglobulinaemia, unspecified Bilateral leg weakness Other musculoskeletal symptoms referable to limbs Discoid lupus erythematosus Lupus erythematosus Elevated sed rate Elevated sedimentation rate Megaloblastic anemia due to vitamin B12 deficiency Other vitamin B12 deficiency anemia documented [facility] this [facility]* Diagnosis Pilonidal cyst- Primary Hidradenitis suppurativa Hidradenitis documented in this encounter [facility]* Diagnosis Pilonidal abscess- Primary Pilonidal cyst with abscess Pilonidal cyst documented in this encounter [facility]* Diagnosis Nipple discharge in female- Primary Other sign and symptom in breast Type 2 diabetes mellitus with other specified complication, unspecified whether terminal computer operator insulin use Obesity with serious comorbidity in pediatric patient, unspecified obesity class, unspecified obesity type IgG deficiency Other selective immunoglobulin deficiencies Recurrent infections Unspecified infectious and parasitic diseases Pilonidal abscess Pilonidal cyst with abscess Tobacco use disorder documented in this [facility] Narrative - Reported* Type Description Date Medical History hyperlipidemia Medical Historyinsulin resistanceMedical HistoryCMVSurgical Historycyst removal pilonidalSurgical HistoryD&CHospitalization Historypregnancy [facility] Other Hospital Discharge instructionsAmbulatory Orders* Referral to Gastroenterology Location: None [facility] Work Phone: Hospital Discharge instructions Additional Instructions Dressing changes to sacral region daily: Remove packing, irrigate with saline, repack with saline moistened 2 x 2 gauze and cover with dry dressingOhio[facility] Work Phone: InstructionsNot on filedocumented in this encounter [facility] (n[facility])* Diagnostic Procedure Only (Routine) - Pending ReviewSpecialtyDiagnoses / ProceduresReferred By ContactReferred To ContactXR IMAGING Diagnoses Steroid-induced osteoporosis Procedures DXA-FOREARM SKELETON DXA BONE DENSITY STUDY 1/>SITES APPENDICLR Lynne Perera MD [address] [facility] [place] [address] [place] [id number] Referral IDStatusRe[facility]osa [facility] DateExpiration DateVisits RequestedVisits [id number] Review Auto-Generated Referral [facility] for referral (narrative)* Consultation (Routine) - AuthorizedSpecialtyDiagnoses / ProceduresReferred By ContactReferred To ContactCardiology Diagnoses Irregular heart rate Essential hypertension Autonomic dysfunction Obstructive sleep apnea syndrome Primary hypertension Procedures Follow Up In Cardiology Michelle Jasmine, VOCATIONAL EXAMINER-OFFICE SERVICES ASSISTANT [address] [facility] [address] [place] [address] Aurora Patel MD [address] [facility] [address] [place] [address] Referral IDStatusReasonStart DateExpiration DateVisits RequestedVisits [id number]/17/20241/16/202511 * Cardiovascular (Routine) - Pending ReviewSpecialtyDiagnoses / Procedures Referred By ContactReferred To ContactCardiology Diagnoses Irregular heart rate Procedures 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 Michelle Jasmine APRN-CNP [address] [facility] [address] [place] [address] Referral IDStatusReasonStart DateExpiration DateVisits RequestedVisits [id number] Review * CV Imaging (Routine) - Pending ReviewSpecialtyDiagnoses / ProceduresReferred By ContactReferred To ContactCardiology Diagnoses Irregular heart rate Obstructive sleep apnea syndrome Procedures Transthoracic Echo (TTE) Complete PA ECHO TTHRC R-T 2D W/WOM-MODE COMPL SPEC&COLR D Michelle Jasmine APRN-CNP [address] [facility] [address] [place] [address] Referral IDStatusReasonStart DateExpiration DateVisits RequestedVisits [id number] Review Perform Procedure / * Cardiovascular (Routine) - AuthorizedSpecialtyDiagnoses / ProceduresReferred By ContactReferred To Contact Diagnoses Irregular heart rate Procedures ECG 12 Lead Michelle Jasmine APRN-CNP [address] [facility] [address] [place] [address] Referral IDStatusReasonStart DateExpiration DateVisits RequestedVisits [id number]/17/20241/16/202511 [facility] Work Phone: Reason for referral (narrative)* Consultation (Routine) - Pending ReviewSpecialtyDiagnoses / ProceduresReferred By Contact Referred To ContactPain Medicine Diagnoses Lumbosacral radiculopathy at L5 Degenerative disc disease, lumbar Procedures PA OFFICE/OUTPATIENT [facility] 60 MINUTES Kade Early MD [address] [facility] [address] [place] [address] Adolfo Kang MD [address] [id number] Referral IDStatusReasonStart DateExpiration DateVisits RequestedVisits [id number] Review Specialty Services Required / [facility] (narrative)No reason for referral information availableCoshocton [facility] Work Phone: Reason for visit Narrative* [place] Prior Authorization (Routine) - AuthorizedSpecialtyDiagnoses / ProceduresReferred By Contact Referred To Contact Diagnoses Frequent infections Hypogammaglobulinemia (HCC) Bilateral leg weakness Discoid lupus erythematosus Procedures GAMMAGARD LIQUID INJECTION Vera Najera MD [address] [place] [address] Phone: tel: fax: Hematology/Oncology [address] [place] [address] [place] [address] Phone: tel: fax: Referral IDStatusReasonStart DateExpiration DateVisits RequestedVisits [id number]/11/20245/ [facility] Narrative* [place] Prior Authorization (Routine) - AuthorizedSpecialtyDiagnoses / ProceduresReferred By ContactReferred To Contact Diagnoses Other systemic lupus erythematosus with other organ involvement (HCC) Procedures BELIMUMAB INJECTION Lynne Ni MD [address] [place] [address] Phone: tel: fax: Lynne Ni MD [address] [place] [address] Phone: tel: fax: Referral IDStatusReasonStart DateExpiration DateVisits RequestedVisits [id number]/18/202510/18/202588 [facility] for visit Narrative* [place] Prior Authorization (Routine) - AuthorizedSpecialtyDiagnoses / ProceduresReferred By ContactReferred To Contact Diagnoses Other iron deficiency anemia Procedures IRON SUCROSE INJECTION PER 1 MG Vaibhav Carvalho APRN.OFFICE SERVICES ASSISTANT [address] [place] [address] Phone: tel: fax: Hematology/Oncology [address] [place] [address] [address] [place] [id number] Phone: tel: fax: Referral IDStatusReasonStart DateExpiration DateVisits RequestedVisits [id number]/24/202512/31/[id number] [facility] for visit Narrative* [place] Prior Authorization (Routine) - AuthorizedSpecialtyDiagnoses / ProceduresReferred By ContactReferred To Contact Diagnoses Frequent infections Hypogammaglobulinemia (HCC) Bilateral leg weakness Discoid lupus erythematosus Procedures GAMMAGARD LIQUID INJECTION Vera Najera MD [address] [facility] [place] [address] Phone: tel: fax: Hematology/Oncology [address] [place] [address] [place] [address] Phone: tel: fax: Referral IDStatusReasonStart DateExpiration DateVisits RequestedVisits [id number] Patient Cleared - Admin/Caddy/Director advise to proceed or did not respond [facility] for visit Narrative* [place] Prior Authorization (Routine) - AuthorizedSpecialtyDiagnoses / ProceduresReferred By ContactReferred To Contact Diagnoses Frequent infections Hypogammaglobulinemia (HCC) Bilateral leg weakness Discoid lupus erythematosus Procedures GAMMAGARD LIQUID INJECTION Vera Najera MD [address] [facility] [address] [place] [address] Phone: tel: fax: Hematology/Oncology [address] [place] [address] [place] [address] Phone: tel: fax: Referral IDStatusReasonStart DateExpiration DateVisits RequestedVisits [id number] Patient Cleared - Admin/Caddy/Director advise to proceed or did not respond [facility] for visit Narrative* [place] Prior Authorization (Routine) - AuthorizedSpecialtyDiagnoses / ProceduresReferred By ContactReferred To Contact Diagnoses Frequent infections Hypogammaglobulinemia (HCC) Bilateral leg weakness Discoid lupus erythematosus Procedures GAMMAGARD LIQUID INJECTION IMMUNE GLOBULIN INJECTION Vera Najera MD [address] [place] [address] [place] [address] Phone: tel: fax: Hematology/Oncology [address] [place] [address] [place] [address] Phone: tel: fax: Referral IDStatusReasonStwinters DateExpiration DateVisits RequestedVisits [id number] Patient Cleared - Admin/Caddy/Director advise to proceed or did not respond [facility] Summary Purpose Family History No Family [...] Procedures CONSULT TO INFECTIOUS DISEASES OFFICE/OUTPATIENT [facility] 60 MINUTES Vaibhav Carvalho, MAURILIO.[address] [place] [address] Referral IDStatusReasonart DateExpiration DateVisits RequestedVisits [id number] PCP Requested Referral /[id number] / ProceduresReferred By ContactReferred To Contact Diagnoses Paroxysmal supraventricular tachycardia PAC (premature atrial contraction) Procedures ECG 12 Lead Lois Holm MD [address] [place] [address] [address], [address] [address] Referral IDStatusReasonStart DateExpiration DateVisits RequestedVisits [id number]/20/20242/129736ZsfilrocnMyoqrkhyy / Procedures Referred By ContactReferred To ContactCardiology Diagnoses Shortness of breath Paroxysmal supraventricular tachycardia PAC (premature atrial contraction) Procedures Follow Up In Cardiology Lois Holm MD [address] [place] [address] 2, [address] [address] Lois Holm MD [address] [place] [address] 2, [address] [address] Referral IDStatusReasonStart DateExpiration DateVisits RequestedVisits [id number]/20/20242/674211PvlbdszvzOhoddwsow / Procedures Referred By ContactReferred To Contact Diagnoses Obesity, Class III, BMI 40-49.9 (morbid obesity) (HCC) Pre-diabetes Christie Phan MD [address] [place] [address] Referral IDStatusReasonStart DateExpiration DateVisits RequestedVisits [id number] / ProceduresReferred By Contact Referred To Contact Diagnoses Wound healing, delayed Procedures CONSULT TO MEDICAL GENETICS - GENERAL OFFICE/OUTPATIENT [facility] 60-74 MINUTES MEDICAL GENETICS COUNSELING EACH 30 MINUTES Misty Nelson MD [facility] [place] [address] [facility] Medicine [place] [address] [place] [address] Referral IDStatusReasonStart DateExpiration DateVisits RequestedVisits [id number] PCP Requested Referral Auto-Generated Referral [id number] / ProceduresReferred By ContactReferred To ContactNeurology Diagnoses POTS (postural orthostatic tachycardia syndrome) Procedures CONSULT TO NEUROLOGY OFFICE/OUTPATIENT [facility] 60-74 MINUTES Christie Phan MD [address] [place] [address] Referral IDStatusReasonStart DateExpiration DateVisits RequestedVisits [id number] PCP Requested Referral /[id number] / ProceduresReferred By ContactReferred To ContactImmunology Diagnoses Raised level of immunoglobulins Procedures CONSULT TO IMMUNOLOGY OFFICE/OUTPATIENT [facility] 60-74 MINUTES Christie Phan MD [address] [place] [address] Referral IDStatusReasonStart DateExpiration DateVisits RequestedVisits [id number] PCP Requested Referral [id number] / ProceduresReferred By ContactReferred To ContactNEUROLOGICAL INSTITUTE Diagnoses Somnolence, daytime Snoring Procedures HOME SLEEP APNEA TEST (HSAT) SLEEP STD AIRFLOW HRT RATE&O2 SAT EFFORT Christie Pang MD [address] [place] [address] Neurological [place] [address] [place] [address] Referral IDStatusReasonStart DateExpiration DateVisits RequestedVisits [id number] Auto-Generated Referral [id number] / ProceduresReferred By ContactReferred To Contact Diagnoses Somnolence, daytime Chronic fatigue and malaise Obesity, unspecified classification, unspecified obesity type, unspecified whether serious comorbidity present Procedures CONSULT TO LIFESTYLE MEDICINE MD OFFICE/OUTPATIENT [facility] 60-74 MINUTES Vera Najera MD [address] [place] [address] [place] [address] Referral IDStatusKierstenCoosa [facility] DateExpiration DateVisits RequestedVisits [id number] PCP Requested Referral [id number] / ProceduresReferred By ContactReferred To Contact Diagnoses Somnolence, daytime Snoring Procedures CONSULT TO SLEEP MEDICINE - ADULT OFFICE/OUTPATIENT [facility] 60-74 MINUTES Vera Najera MD [address] [place] [address] [place] [address] Referral IDStatusReasonStwinters DateExpiration DateVisits RequestedVisits [id number] PCP Requested Referral Medications Administered Section Medication [...] Back Pain Back Pain FOLLOW UP AFTER SLEENE SI f/u Abdominal pain.Reason for VisitLumbosacral spondylosis [...] section and content) DATE CREATED AUTHOR 09/20/2018 [facility] DATE CREATED AUTHOR AUTHOR'S ORGANIZ ATION 12/10/2018 [facility] DATE CREATED AUTHOR AUTHOR'S ORGANIZ ATION 01/13/2019 [facility] DATE CREATED AUTHOR AUTHOR'S ORGANIZ ATION 06/28/2021 [facility] DATE CREATED AUTHOR AUTHOR'S ORGANIZ ATION 10/01/2022 [facility] DATE CREATED AUTHOR AUTHOR'S ORGANIZ ATION 03/10/2024 [facility] DATE CREATED AUTHOR AUTHOR'S ORGANIZ ATION 07/22/2024 [facility] DATE CREATED AUTHOR AUTHOR'S ORGANIZ ATION 07/28/2024 [facility] DATE CREATED AUTHOR AUTHOR'S ORGANIZ ATION 03/02/2025 [facility] DATE CREATED AUTHOR AUTHOR'S ORGANIZ ATION 03/14/2025 [facility] DATE CREATED AUTHOR AUTHOR'S ORGANIZ ATION 03/18/2025 [facility] DATE CREATED AUTHOR AUTHOR'S ORGANIZ ATION 03/21/2025 [facility] Reason for Visit (unrecogniz ed section and content) ReasonCommentsInfection Follow UpSpecialtyDiagnoses / ProceduresReferred By ContactReferred To ContactInfectious Diseases Diagnoses Positive blood cultures Procedures CONSULT TO INFECTIOUS DISEASES OFFICE/OUTPATIENT [facility] 60 MINUTES Vaibhav Carvalho APRN.[address] [place] [address] Phone: tel: fax: Referral IDStatusReasonStart DateExpiration DateVisits RequestedVisits [id number] PCP Requested Referral [id number]wtlctr / ProceduresReferred By ContactReferred To Contact [facility] ReasonCommentsPainongoing generalized pain.ReasonCommentsNewReasonCommentsOpened In ErrorReasonCommentsResultsReasonCommentsAbnormal labsNew patient consult ReasonCommentsNew PatientVirtual visitSpecialtyDiagnoses / ProceduresReferred By ContactReferred To Contact Diagnoses Somnolence, daytime Chronic fatigue and malaise Obesity, unspecified classification, unspecified obesity type, unspecified whether serious comorbidity present Procedures CONSULT TO LIFESTYLE MEDICINE MD OFFICE/OUTPATIENT [facility] 60-74 MINUTES Vera Najera MD [address] [place] [address] Referral IDStatusReasonStart DateExpiration DateVisits RequestedVisits [id number] PCP Requested Referral [id number] Total serum IgMAnemiaReasonComments ConsultSpecialtyDiagnoses / ProceduresReferred By ContactReferred To Contact Immunology Diagnoses Raised level of immunoglobulins Procedures CONSULT TO IMMUNOLOGY OFFICE/OUTPATIENT [facility] 60-74 MINUTES Christie Phan MD [address] [place] [address] Referral IDStatusReasonStart DateExpiration DateVisits RequestedVisits [id number] PCP Requested Referral [id number]fqqszXofuonvrQczewh RequestReason CommentsAppointmentCare Coordinator - OtherReasonCommentsFuture Appointment Scheduling questions/concernsReasonCommentsPAP Therapy Follow UpReasonComments PAP Rx FaxedDME Josh MarshalluskyReasonCommentsAnemia8 week follow upReason CommentsOrdersLab Orders Before AppointmentReasonCommentsSleep Apnea ReasonCommentsAnemiaReasonCommentsPainWeight ManagementReasonCommentsReason CommentsCare CoordinationappointmentReasonCommentsEstablished PatientReason CommentsAppointmentReasonCommentsFollow UpReasonOnset DateCommentsRefill Request 12/24/2022ReasonCommentsSLEReasonOnset DateCommentsSPP Inflammatory Conditions - Treatment Xxlteyfh48/14/2023enlystaInsurance Rngnramimmrgp80/14/2023A submission pendingReasonCommentsAppointmentOrdersMedication AuthorizationReason CommentsResultsEye ExamReasonCommentsAllied Health VisitBenlysta teachingReason CommentsCMNReasonCommentsEstablished Patient Follow-UpReasonCommentsWeight ManagementReasonCommentsNew Patient VisitHEART RATE/ BPSpecialtyDiagnoses / ProceduresReferred By ContactReferred To Contact Diagnoses Irregular heart rate Procedures ECG 12 Lead Michelle Jasmine, VOCATIONAL EXAMINER-OFFICE SERVICES ASSISTANT [address] [facility] [address] [place] [address] Referral IDStatusReasonart DateExpiration DateVisits RequestedVisits [id number]/17/20241/[id number] Patient Visit [facility] Swelling, [facility]Diagnoses / ProceduresReferred By ContactReferred To Contact Diagnoses Paroxysmal supraventricular tachycardia PAC (premature atrial contraction) Procedures ECG 12 Lead Lois Holm MD [address] [facility] [address] [place] [address] Referral IDStatusReasonStart DateExpiration DateVisits RequestedVisits [id number]/20/20242/[id number] DateCommentsSPP Inflammatory Conditions - Medication Qhmbwx9707/13/2023enlystaReasonOnset Date CommentsSPP Inflammatory Conditions - Medication Gtvspg7008/12/2023enlystaReason Onset DateCommentsSPP Inflammatory Conditions - Medication Fglutj4009/13/2023 BenlystaReasonCommentsSLEReasonOnset DateCommentsSPP Inflammatory Conditions - Medication Knmsgs3610/12/2023enlystaReasonOnset DateCommentsRefill Request 4ReasonOnset DateCommentsSPP Inflammatory Conditions - Medication Lncrjm5211/15/2023enlysta - NCA 09/2024ReasonOnset DateCommentsSPP Inflammatory Conditions - Medication Oypjfi1112/13/2023enlysta - NCA 09/2024ReasonOnset Date CommentsSPP Inflammatory Conditions - Medication Tuwryq7601/18/2024enlystaReason Onset DateCommentsSPP Inflammatory Conditions - Medication Jzyxfz1202/14/2024 Benlysta - NCA 09/2024ReasonOnset DateCommentsSPP Inflammatory Conditions - Follow-up02/14/2024enlystaInsurance Fsdssfmeidnpw81/23/2024A Renewal Submitted ReasonCommentsOrdersPAP RX.ReasonCommentsCare Coordinator - OtherEds scheduling ReasonCommentsMed Change RequestReasonCommentscmnReasonOnset DateCommentsSPP Inflammatory Conditions - Medication Puziyh0503/13/2024enlysta - NCA 09/2024Reason CommentsBreast ProblemReasonCommentsVaginal BleedingPt present today for bleeding when she wipes.ReasonOnset DateCommentsSPP Inflammatory Conditions - Medication Buqdtl9604/11/2024enlystaReasonCommentsEar ProblemPossible thrush, ear painReasonCommentsMed RefillReasonOnset DateCommentsSPP Inflammatory Conditions - Medication Zwxeaa2005/12/2024enlystaSpecialtyDiagnoses / ProceduresReferred By ContactReferred To Contact Diagnoses Frequent infections Hypogammaglobulinemia (HCC) Bilateral leg weakness Discoid lupus erythematosus Procedures GAMMAGARD LIQUID INJECTION Vera Najera MD [address] [place] [address] [place] [address] [facility] [place] [address] [place] [address] Referral IDStatusReasonStart DateExpiration DateVisits RequestedVisits [id number]/11/20245/11/219889LnxsrcBuihaczeTbsm Women Visit ReasonOnset DateCommentsSPP Inflammatory Conditions - Medication Refill 06/06/2024enlystaReasonCommentsLab OrdersReasonCommentsArt TherapyReason CommentsAnemiaReasonCommentsBreath Hydrogen TestSIBO Breath TestReasonOnset Date CommentsSPP Inflammatory Conditions - Medication Kumiow2006/29/2024enlystaReason Commentsposs raynaudsSpecialtyDiagnoses / ProceduresReferred By ContactReferred To ContactVascular Surgery Diagnoses Cold extremities Pain of lower extremity, unspecified laterality Gay De La Torre, VOCATIONAL EXAMINER-OFFICE SERVICES ASSISTANT [address] [place] [address] Phone: tel:[phone] fax: Hayden Arciniega MD [address] [place] [address] Phone: tel:[phone] fax: Referral IDStatusReasonStart DateExpiration DateVisits RequestedVisits [id number] Review Specialty Services Required [id number]/Lip ProblemSince FebruaryRe DateCommentsSPP Inflammatory Conditions - Medication Tpvfss8607/25/2024enlysta ReasonCommentsFollow-upSkin CheckReasonCommentsAnnual ExamSpecialtyDiagnoses / ProceduresReferred By ContactReferred To ContactCardiology Diagnoses Shortness of breath Paroxysmal supraventricular tachycardia (CMS-HCC) PAC (premature atrial contraction) Procedures Follow Up In Cardiology Lois Holm MD [address] [place] [address] [address], [address] [address] Phone: tel: fax: Lois Holm MD [address] [place] [address] [address], [address] [address] Phone: tel: fax: Referral IDStatusReasonStart DateExpiration DateVisits RequestedVisits [id number]/20/20242/442006NwbyboTfhvcjcqKpe Change Request ReasonCommentsPatient QuestionReasonOnset DateCommentsSPP Inflammatory Conditions - Medication Uihqwo1808/17/2024enlystaReasonOnset DateCommentsRefill Abtvmbg2209/01/2024ReasonCommentsThyroid NoduleFollow up ultrasound [facility] 08/24/24 ReasonCommentsMegaloblastic anemia due to vitamin B12 deficiencyTreatment visit ReasonOnset LdpyPjxnophxVrojkcm72/17/2025ReasonCommentsMedication PreauthorizationAppointmentReasonCommentsFuture AppointmentReasonOnset Date CommentsSPP Inflammatory Conditions - Medication Kdjpat4109/20/2024enlystaReason CommentsJoint PainReasonCommentsPatient UpdateAppointmentReasonCommentsSLE OsteoarthritisReasonCommentsConsulthypermobilitySpecialtyDiagnoses / Procedures Referred By ContactReferred To ContactGenetics / MEDICAL GENETICS Diagnoses hEDS with concerns and wants CTD evaluation Procedures EST PATIENT Self Ny Lance MD [address] [place] [address] Phone: tel: fax: Referral IDStatusReasonStart DateExpiration DateVisits RequestedVisits [id number] Review/[id number]-oq ReasonCommentsHypogammagloblinemiaMegablastic anemiaOTVReasonOnset DateComments Nwzzrnj7711/30/2024ReasonCommentsFollow-upSuspicious Skin LesionReasonComments ConsultPilonidal cyst- Pt had a pilonidal cyst and sinus removal about 15 yrs ago- [facility] did procedure. Everything went well and was doing fine until about 2-3 weeks ago.SpecialtyDiagnoses / ProceduresReferred By ContactReferred To Contact General Surgery Diagnoses Pilonidal cyst Procedures PA OFFICE/OUTPATIENT [facility] MDM 60 MINUTES Bernabe English MD [address] [place] [address] Phone: tel: fax: Terence Blum MD [address] [facility] [address] [place] [address] Phone: tel: fax: Referral IDStatusReasonStart DateExpiration DateVisits RequestedVisits [id number] Specialty Services Required /[id number] PatientPilonidal cyst with abscessReferral from Dr. Gay De La Torre- [facility]. Patient denies fever, nausea, vomiting or diarrheaNo [...] any alcohol or drug abuse patient.[facility] HospitalIn the event this information is protected by the Federal Confidentiality of Alcohol and Drug Abuse Patient Records regulations: The Federal rules restrict any use of the information to criminally investigate or prosecute any alcohol or drug abuse patient.[facility] HospitalIn the event this information is protected by the Federal Confidentiality of Alcohol and Drug Abuse Patient Records regulations: The Federal rules restrict any use of the information to criminally investigate or prosecute any alcohol or drug abuse patient.[facility] HospitalIn the event this information is protected by the Federal Confidentiality of Alcohol and Drug Abuse Patient Records regulations: The Federal rules restrict any use of the information to criminally investigate or prosecute any alcohol or drug abuse patient.[facility] HospitalIn the event this information is protected by the Federal Confidentiality of Alcohol and Drug Abuse Patient Records regulations: The Federal rules restrict any use of the information to criminally investigate or prosecute any alcohol or drug abuse patient.[facility] HospitalIn the event this information is protected by the Federal Confidentiality of Alcohol and Drug Abuse Patient Records regulations: The Federal rules restrict any use of the information to criminally investigate or prosecute any alcohol or drug abuse patient.[facility] HospitalIn the event this information is protected by the Federal Confidentiality of Alcohol and Drug Abuse Patient Records regulations: The Federal rules restrict any use of the information to criminally investigate or prosecute any alcohol or drug abuse patient.[facility] HospitalIn the event this information is protected by the Federal Confidentiality of Alcohol and Drug Abuse Patient Records regulations: The Federal rules restrict any use of the information to criminally investigate or prosecute any alcohol or drug abuse patient.[facility] HospitalIn the event this information is protected by the Federal Confidentiality of Alcohol and Drug Abuse Patient Records regulations: The Federal rules restrict any use of the information to criminally investigate or prosecute any alcohol or drug abuse patient.[facility] HospitalIn the event this information is protected by the Federal Confidentiality of Alcohol and Drug Abuse Patient Records regulations: The Federal rules restrict any use of the information to criminally investigate or prosecute any alcohol or drug abuse patient.[facility] HospitalIn the event this information is protected by the Federal Confidentiality of Alcohol and Drug Abuse Patient Records regulations: The Federal rules restrict any use of the information to criminally investigate or prosecute any alcohol or drug abuse patient.[facility] HospitalIn the event this information is protected by the Federal Confidentiality of Alcohol and Drug Abuse Patient Records regulations: The Federal rules restrict any use of the information to criminally investigate or prosecute any alcohol or drug abuse patient.[facility] HospitalIn the event this information is protected by the Federal Confidentiality of Alcohol and Drug Abuse Patient Records regulations: The Federal rules restrict any use of the information to criminally investigate or prosecute any alcohol or drug abuse patient.[facility] HospitalIn the event this information is protected by the Federal Confidentiality of Alcohol and Drug Abuse Patient Records regulations: The Federal rules restrict any use of the information to criminally investigate or prosecute any alcohol or drug abuse patient.[facility] the event this information is protected by the Federal Confidentiality of Alcohol and Drug Abuse Patient Records regulations: The Federal rules restrict any use of the information to criminally investigate or prosecute any alcohol or drug abuse patient.[facility] HospitalIn the event this information is protected by the Federal Confidentiality of Alcohol and Drug Abuse Patient Records regulations: The Federal rules restrict any use of the information to criminally investigate or prosecute any alcohol or drug abuse patient.[facility] HospitalIn the event this information is protected [...] any alcohol or drug abuse patient.[facility] HospitalIn the event this information is protected by the Federal Confidentiality of Alcohol and Drug Abuse Patient Records regulations: The Federal rules restrict any use of the information to criminally investigate or prosecute any alcohol or drug abuse patient.[facility] HospitalIn the event this information is protected by the Federal Confidentiality of Alcohol and Drug Abuse Patient Records regulations: The Federal rules restrict any use of the information to criminally investigate or prosecute any alcohol or drug abuse patient.[facility] HospitalIn the event this information is protected by the Federal Confidentiality of Alcohol and Drug Abuse Patient Records regulations: The Federal rules restrict any use of the information to criminally investigate or prosecute any alcohol or drug abuse patient.[facility] HospitalIn the event this information is protected by the Federal Confidentiality of Alcohol and Drug Abuse Patient Records regulations: The Federal rules restrict any use of the information to criminally investigate or prosecute any alcohol or drug abuse patient.[facility] HospitalIn the event this information is protected by the Federal Confidentiality of Alcohol and Drug Abuse Patient Records regulations: The Federal rules restrict any use of the information to criminally investigate or prosecute any alcohol or drug abuse patient.[facility] HospitalIn the event this information is protected by the Federal Confidentiality of Alcohol and Drug Abuse Patient Records regulations: The Federal rules restrict any use of the information to criminally investigate or prosecute any alcohol or drug abuse patient.[facility] HospitalIn the event this information is protected by the Federal Confidentiality of Alcohol and Drug Abuse Patient Records regulations: The Federal rules restrict any use of the information to criminally investigate or prosecute any alcohol or drug abuse patient.[facility] HospitalIn the event this information is protected by the Federal Confidentiality of Alcohol and Drug Abuse Patient Records regulations: The Federal rules restrict any use of the information to criminally investigate or prosecute any alcohol or drug abuse patient.[facility] HospitalIn the event this information is protected by the Federal Confidentiality of Alcohol and Drug Abuse Patient Records regulations: The Federal rules restrict any use of the information to criminally investigate or prosecute any alcohol or drug abuse patient.[facility] HospitalIn the event this information is protected by the Federal Confidentiality of Alcohol and Drug Abuse Patient Records regulations: The Federal rules restrict any use of the information to criminally investigate or prosecute any alcohol or drug abuse patient.[facility] HospitalIn the event this information is protected by the Federal Confidentiality of Alcohol and Drug Abuse Patient Records regulations: The Federal rules restrict any use of the information to criminally investigate or prosecute any alcohol or drug abuse patient.[facility] HospitalIn the event this information is protected by the Federal Confidentiality of Alcohol and Drug Abuse Patient Records regulations: The Federal rules restrict any use of the information to criminally investigate or prosecute any alcohol or drug abuse patient.[facility] HospitalIn the event this information is protected by the Federal Confidentiality of Alcohol and Drug Abuse Patient Records regulations: The Federal rules restrict any use of the information to criminally investigate or prosecute any alcohol or drug abuse patient.[facility] HospitalIn the event this information is protected by the Federal Confidentiality of Alcohol and Drug Abuse Patient Records regulations: The Federal rules restrict any use of the information to criminally investigate or prosecute any alcohol or drug abuse patient.[facility] HospitalIn the event this information is protected by the Federal Confidentiality of Alcohol and Drug Abuse Patient Records regulations: The Federal rules restrict any use of the information to criminally investigate or prosecute any alcohol or drug abuse patient.[facility] HospitalIn the event this information is protected by the Federal Confidentiality of Alcohol and Drug Abuse Patient Records regulations: The Federal rules restrict any use of the information to criminally investigate or prosecute any alcohol or drug abuse patient.[facility] HospitalIn the event this information is protected by the Federal Confidentiality of Alcohol and Drug Abuse Patient Records regulations: The Federal rules restrict any use of the information to criminally investigate or prosecute any alcohol or drug abuse patient.[facility] HospitalIn the event this information is protected by the Federal Confidentiality of Alcohol and Drug Abuse Patient Records regulations: The Federal rules restrict any use of the information to criminally investigate or prosecute any alcohol or drug abuse patient.[facility] HospitalIn the event this information is protected by the Federal Confidentiality of Alcohol and Drug Abuse Patient Records regulations: The Federal rules restrict any use of the information to criminally investigate or prosecute any alcohol or drug abuse patient.[facility] HospitalIn the event this information is protected by the Federal Confidentiality of Alcohol and Drug Abuse Patient Records regulations: The Federal rules restrict any use of the information to criminally investigate or prosecute any alcohol or drug abuse patient.[facility] HospitalIn the event this information is protected by the Federal Confidentiality of Alcohol and Drug Abuse Patient Records regulations: The Federal rules restrict any use of the information to criminally investigate or prosecute any alcohol or drug abuse patient.[facility] HospitalIn the event this information is protected by the Federal Confidentiality of Alcohol and Drug Abuse Patient Records regulations: The Federal rules restrict any use of the information to criminally investigate or prosecute any alcohol or drug abuse patient.[facility] HospitalIn the event this information is protected by the Federal Confidentiality of Alcohol and Drug Abuse Patient Records regulations: The Federal rules restrict any use of the information to criminally investigate or prosecute any alcohol or drug abuse patient.[facility] HospitalIn the event this information is protected by the Federal Confidentiality of Alcohol and Drug Abuse Patient Records regulations: The Federal rules restrict any use of the information to criminally investigate or prosecute any alcohol or drug abuse patient.[facility] HospitalIn the event this information is protected by the Federal Confidentiality of Alcohol and Drug Abuse Patient Records regulations: The Federal rules restrict any use of the information to criminally investigate or prosecute any alcohol or drug abuse patient.[facility] HospitalIn the event this information is protected by the Federal Confidentiality of Alcohol and Drug Abuse Patient Records regulations: The Federal rules restrict any use of the information to criminally investigate or prosecute any alcohol or drug abuse patient.[facility] HospitalIn the event this information is protected by the Federal Confidentiality of Alcohol and Drug Abuse Patient Records regulations: The Federal rules restrict any use of the information to criminally investigate or prosecute any alcohol or drug abuse patient.[facility] HospitalIn the event this information is protected by the Federal Confidentiality of Alcohol and Drug Abuse Patient Records regulations: The Federal rules restrict any use of the information to criminally investigate or prosecute any alcohol or drug abuse patient.[facility] HospitalIn the event this information is protected by the Federal Confidentiality of Alcohol and Drug Abuse Patient Records regulations: The Federal rules restrict any use of the information to criminally investigate or prosecute any alcohol or drug abuse patient.[facility] HospitalIn the event this information is protected by the Federal Confidentiality of Alcohol and Drug Abuse Patient Records regulations: The Federal rules restrict any use of the information to criminally investigate or prosecute any alcohol or drug abuse patient.[facility] HospitalIn the event this information is protected by the Federal Confidentiality of Alcohol and Drug Abuse Patient Records regulations: The Federal rules restrict any use of the information to criminally investigate or prosecute any alcohol or drug abuse patient.[facility] HospitalIn the event this information is protected by the Federal Confidentiality of Alcohol and Drug Abuse Patient Records regulations: The Federal rules restrict any use of the information to criminally investigate or prosecute any alcohol or drug abuse patient.[facility] HospitalIn the event this information is protected by the Federal Confidentiality of Alcohol and Drug Abuse Patient Records regulations: The Federal rules restrict any use of the information to criminally investigate or prosecute any alcohol or drug abuse patient.[facility] HospitalIn the event this information is protected by the Federal Confidentiality of Alcohol and Drug Abuse Patient Records regulations: The Federal rules restrict any use of the information to criminally investigate or prosecute any alcohol or drug abuse patient.[facility] HospitalIn the event this information is protected by the Federal Confidentiality of Alcohol and Drug Abuse Patient Records regulations: The Federal rules restrict any use of the information to criminally investigate or prosecute any alcohol or drug abuse patient.[facility] HospitalIn the event this information is protected by the Federal Confidentiality of Alcohol and Drug Abuse Patient Records regulations: The Federal rules restrict any use of the information to criminally investigate or prosecute any alcohol or drug abuse patient.[facility] HospitalIn the event this information is protected by the Federal Confidentiality of Alcohol and Drug Abuse Patient Records regulations: The Federal rules restrict any use of the information to criminally investigate or prosecute any alcohol or drug abuse patient.[facility] HospitalIn the event this information is protected by the Federal Confidentiality of Alcohol and Drug Abuse Patient Records regulations: The Federal rules restrict any use of the information to criminally investigate or prosecute any alcohol or drug abuse patient.[facility] HospitalIn the event this information is protected by the Federal Confidentiality of Alcohol and Drug Abuse Patient Records regulations: The Federal rules restrict any use of the information to criminally investigate or prosecute any alcohol or drug abuse patient.[facility] HospitalIn the event this information is protected by the Federal Confidentiality of Alcohol and Drug Abuse Patient Records regulations: The Federal rules restrict any use of the information to criminally investigate or prosecute any alcohol or drug abuse patient.[facility] HospitalIn the event this information is protected by the Federal Confidentiality of Alcohol and Drug Abuse Patient Records regulations: The Federal rules restrict any use of the information to criminally investigate or prosecute any alcohol or drug abuse patient.[facility] HospitalIn the event this information is protected by the Federal Confidentiality of Alcohol and Drug Abuse Patient Records regulations: The Federal rules restrict any use of the information to criminally investigate or prosecute any alcohol or drug abuse patient.[facility] HospitalIn the event this information is protected by the Federal Confidentiality of Alcohol and Drug Abuse Patient Records regulations: The Federal rules restrict any use of the information to criminally investigate or prosecute any alcohol or drug abuse patient.[facility] HospitalIn the event this information is protected by the Federal Confidentiality of Alcohol and Drug Abuse Patient Records regulations: The Federal rules restrict any use of the information to criminally investigate or prosecute any alcohol or drug abuse patient.[facility] HospitalIn the event this information is protected by the Federal Confidentiality of Alcohol and Drug Abuse Patient Records regulations: The Federal rules restrict any use of the information to criminally investigate or prosecute any alcohol or drug abuse patient.[facility] HospitalIn the event this information is protected by the Federal Confidentiality of Alcohol and Drug Abuse Patient Records regulations: The Federal rules restrict any use of the information to criminally investigate or prosecute any alcohol or drug abuse patient.[facility] [place] the event this information is protected by the Federal Confidentiality of Alcohol and Drug Abuse Patient Records regulations: The Federal rules restrict any use of the information to criminally investigate or prosecute any alcohol or drug abuse patient.[facility] HospitalIn the event this information is protected by the Federal Confidentiality of Alcohol and Drug Abuse Patient Records regulations: The Federal rules restrict any use of the information to criminally investigate or prosecute any alcohol or drug abuse patient.[facility] HospitalIn the event this information is protected [...] any alcohol or drug abuse patient.[facility] HospitalIn the event this information is protected by the Federal Confidentiality of Alcohol and Drug Abuse Patient Records regulations: The Federal rules restrict any use of the information to criminally investigate or prosecute any alcohol or drug abuse patient.[facility] HospitalIn the event this information is protected by the Federal Confidentiality of Alcohol and Drug Abuse Patient Records regulations: The Federal rules restrict any use of the information to criminally investigate or prosecute any alcohol or drug abuse patient.[facility] HospitalIn the event this information is protected by the Federal Confidentiality of Alcohol and Drug Abuse Patient Records regulations: The Federal rules restrict any use of the information to criminally investigate or prosecute any alcohol or drug abuse patient.[facility] HospitalIn the event this information is protected by the Federal Confidentiality of Alcohol and Drug Abuse Patient Records regulations: The Federal rules restrict any use of the information to criminally investigate or prosecute any alcohol or drug abuse patient.[facility] HospitalIn the event this information is protected by the Federal Confidentiality of Alcohol and Drug Abuse Patient Records regulations: The Federal rules restrict any use of the information to criminally investigate or prosecute any alcohol or drug abuse patient.[facility] HospitalIn the event this information is protected by the Federal Confidentiality of Alcohol and Drug Abuse Patient Records regulations: The Federal rules restrict any use of the information to criminally investigate or prosecute any alcohol or drug abuse patient.[facility] HospitalIn the event this information is protected by the Federal Confidentiality of Alcohol and Drug Abuse Patient Records regulations: The Federal rules restrict any use of the information to criminally investigate or prosecute any alcohol or drug abuse patient.[facility] HospitalIn the event this information is protected by the Federal Confidentiality of Alcohol and Drug Abuse Patient Records regulations: The Federal rules restrict any use of the information to criminally investigate or prosecute any alcohol or drug abuse patient.[facility] HospitalIn the event this information is protected by the Federal Confidentiality of Alcohol and Drug Abuse Patient Records regulations: The Federal rules restrict any use of the information to criminally investigate or prosecute any alcohol or drug abuse patient.[facility] HospitalIn the event this information is protected by the Federal Confidentiality of Alcohol and Drug Abuse Patient Records regulations: The Federal rules restrict any use of the information to criminally investigate or prosecute any alcohol or drug abuse patient.[facility] HospitalIn the event this information is protected by the Federal Confidentiality of Alcohol and Drug Abuse Patient Records regulations: The Federal rules restrict any use of the information to criminally investigate or prosecute any alcohol or drug abuse patient.[facility] HospitalIn the event this information is protected by the Federal Confidentiality of Alcohol and Drug Abuse Patient Records regulations: The Federal rules restrict any use of the information to criminally investigate or prosecute any alcohol or drug abuse patient.[facility] HospitalIn the event this information is protected by the Federal Confidentiality of Alcohol and Drug Abuse Patient Records regulations: The Federal rules restrict any use of the information to criminally investigate or prosecute any alcohol or drug abuse patient.[facility] HospitalIn the event this information is protected by the Federal Confidentiality of Alcohol and Drug Abuse Patient Records regulations: The Federal rules restrict any use of the information to criminally investigate or prosecute any alcohol or drug abuse patient.[facility] HospitalIn the event this information is protected by the Federal Confidentiality of Alcohol and Drug Abuse Patient Records regulations: The Federal rules restrict any use of the information to criminally investigate or prosecute any alcohol or drug abuse patient.[facility] HospitalIn the event this information is protected by the Federal Confidentiality of Alcohol and Drug Abuse Patient Records regulations: The Federal rules restrict any use of the information to criminally investigate or prosecute any alcohol or drug abuse patient.[facility] HospitalIn the event this information is protected by the Federal Confidentiality of Alcohol and Drug Abuse Patient Records regulations: The Federal rules restrict any use of the information to criminally investigate or prosecute any alcohol or drug abuse patient.[facility] HospitalIn the event this information is protected by the Federal Confidentiality of Alcohol and Drug Abuse Patient Records regulations: The Federal rules restrict any use of the information to criminally investigate or prosecute any alcohol or drug abuse patient.[facility] HospitalIn the event this information is protected by the Federal Confidentiality of Alcohol and Drug Abuse Patient Records regulations: The Federal rules restrict any use of the information to criminally investigate or prosecute any alcohol or drug abuse patient.[facility] HospitalIn the event this information is protected by the Federal Confidentiality of Alcohol and Drug Abuse Patient Records regulations: The Federal rules restrict any use of the information to criminally investigate or prosecute any alcohol or drug abuse patient.[facility] HospitalIn the event this information is protected by the Federal Confidentiality of Alcohol and Drug Abuse Patient Records regulations: The Federal rules restrict any use of the information to criminally investigate or prosecute any alcohol or drug abuse patient.[facility] HospitalIn the event this information is protected by the Federal Confidentiality of Alcohol and Drug Abuse Patient Records regulations: The Federal rules restrict any use of the information to criminally investigate or prosecute any alcohol or drug abuse patient.[facility] HospitalIn the event this information is protected by the Federal Confidentiality of Alcohol and Drug Abuse Patient Records regulations: The Federal rules restrict any use of the information to criminally investigate or prosecute any alcohol or drug abuse patient.[facility] HospitalIn the event this information is protected by the Federal Confidentiality of Alcohol and Drug Abuse Patient Records regulations: The Federal rules restrict any use of the information to criminally investigate or prosecute any alcohol or drug abuse patient.[facility] HospitalIn the event this information is protected by the Federal Confidentiality of Alcohol and Drug Abuse Patient Records regulations: The Federal rules restrict any use of the information to criminally investigate or prosecute any alcohol or drug abuse patient.[facility] HospitalIn the event this information is protected by the Federal Confidentiality of Alcohol and Drug Abuse Patient Records regulations: The Federal rules restrict any use of the information to criminally investigate or prosecute any alcohol or drug abuse patient.[facility] HospitalIn the event this information is protected by the Federal Confidentiality of Alcohol and Drug Abuse Patient Records regulations: The Federal rules restrict any use of the information to criminally investigate or prosecute any alcohol or drug abuse patient.[facility] HospitalIn the event this information is protected by the Federal Confidentiality of Alcohol and Drug Abuse Patient Records regulations: The Federal rules restrict any use of the information to criminally investigate or prosecute any alcohol or drug abuse patient.[facility] HospitalIn the event this information is protected by the Federal Confidentiality of Alcohol and Drug Abuse Patient Records regulations: The Federal rules restrict any use of the information to criminally investigate or prosecute any alcohol or drug abuse patient.[facility] HospitalIn the event this information is protected by the Federal Confidentiality of Alcohol and Drug Abuse Patient Records regulations: The Federal rules restrict any use of the information to criminally investigate or prosecute any alcohol or drug abuse patient.[facility] HospitalIn the event this information is protected by the Federal Confidentiality of Alcohol and Drug Abuse Patient Records regulations: The Federal rules restrict any use of the information to criminally investigate or prosecute any alcohol or drug abuse patient.[facility] HospitalIn the event this information is protected by the Federal Confidentiality of Alcohol and Drug Abuse Patient Records regulations: The Federal rules restrict any use of the information to criminally investigate or prosecute any alcohol or drug abuse patient.[facility] HospitalIn the event this information is protected by the Federal Confidentiality of Alcohol and Drug Abuse Patient Records regulations: The Federal rules restrict any use of the information to criminally investigate or prosecute any alcohol or drug abuse patient.[facility] HospitalIn the event this information is protected by the Federal Confidentiality of Alcohol and Drug Abuse Patient Records regulations: The Federal rules restrict any use of the information to criminally investigate or prosecute any alcohol or drug abuse patient.[facility] HospitalIn the event this information is protected by the Federal Confidentiality of Alcohol and Drug Abuse Patient Records regulations: The Federal rules restrict any use of the information to criminally investigate or prosecute any alcohol or drug abuse patient.[facility] HospitalIn the event this information is protected by the Federal Confidentiality of Alcohol and Drug Abuse Patient Records regulations: The Federal rules restrict any use of the information to criminally investigate or prosecute any alcohol or drug abuse patient.[facility] HospitalIn the event this information is protected by the Federal Confidentiality of Alcohol and Drug Abuse Patient Records regulations: The Federal rules restrict any use of the information to criminally investigate or prosecute any alcohol or drug abuse patient.[facility]In the event this information is protected by the Federal Confidentiality of Alcohol and Drug Abuse Patient Records regulations: The Federal rules restrict any use of the information to criminally investigate or prosecute any alcohol or drug abuse patient.[facility] HospitalIn the event this information is protected by the Federal Confidentiality of Alcohol and Drug Abuse Patient Records regulations: The Federal rules restrict any use of the information to criminally investigate or prosecute any alcohol or drug abuse patient.[facility] HospitalIn the event this information is protected by the Federal Confidentiality of Alcohol and Drug Abuse Patient Records regulations: The Federal rules restrict any use of the information to criminally investigate or prosecute any alcohol or drug abuse patient.[facility] HospitalIn the event this information is protected by the Federal Confidentiality of Alcohol and Drug Abuse Patient Records regulations: The Federal rules restrict any use of the information to criminally investigate or prosecute any alcohol or drug abuse patient.[facility] HospitalIn the event this information is protected by the Federal Confidentiality of Alcohol and Drug Abuse Patient Records regulations: The Federal rules restrict any use of the information to criminally investigate or prosecute any alcohol or drug abuse patient.[facility] HospitalIn the event this information is protected by the Federal Confidentiality of Alcohol and Drug Abuse Patient Records regulations: The Federal rules restrict any use of the information to criminally investigate or prosecute any alcohol or drug abuse patient.[facility] HospitalIn the event this information is protected by the Federal Confidentiality of Alcohol and Drug Abuse Patient Records regulations: The Federal rules restrict any use of the information to criminally investigate or prosecute any alcohol or drug abuse patient.[facility] HospitalIn the event this information is protected by the Federal Confidentiality of Alcohol and Drug Abuse Patient Records regulations: The Federal rules restrict any use of the information to criminally investigate or prosecute any alcohol or drug abuse patient.[facility] HospitalIn the event this information is protected by the Federal Confidentiality of Alcohol and Drug Abuse Patient Records regulations: The Federal rules restrict any use of the information to criminally investigate or prosecute any alcohol or drug abuse patient.[facility] [place] the event this information is protected by the Federal Confidentiality of Alcohol and Drug Abuse Patient Records regulations: The Federal rules restrict any use of the information to criminally investigate or prosecute any alcohol or drug abuse patient.[facility] HospitalIn the event this information is protected by the Federal Confidentiality of Alcohol and Drug Abuse Patient Records regulations: The Federal rules restrict any use of the information to criminally investigate or prosecute any alcohol or drug abuse patient.[facility] HospitalIn the event this information is protected [...] any alcohol or drug abuse patient.[facility] HospitalIn the event this information is protected by the Federal Confidentiality of Alcohol and Drug Abuse Patient Records regulations: The Federal rules restrict any use of the information to criminally investigate or prosecute any alcohol or drug abuse patient.[facility] HospitalIn the event this information is protected by the Federal Confidentiality of Alcohol and Drug Abuse Patient Records regulations: The Federal rules restrict any use of the information to criminally investigate or prosecute any alcohol or drug abuse patient.[facility] HospitalIn the event this information is protected by the Federal Confidentiality of Alcohol and Drug Abuse Patient Records regulations: The Federal rules restrict any use of the information to criminally investigate or prosecute any alcohol or drug abuse patient.[facility] HospitalIn the event this information is protected by the Federal Confidentiality of Alcohol and Drug Abuse Patient Records regulations: The Federal rules restrict any use of the information to criminally investigate or prosecute any alcohol or drug abuse patient.[facility] HospitalIn the event this information is protected by the Federal Confidentiality of Alcohol and Drug Abuse Patient Records regulations: The Federal rules restrict any use of the information to criminally investigate or prosecute any alcohol or drug abuse patient.[facility] HospitalIn the event this information is protected by the Federal Confidentiality of Alcohol and Drug Abuse Patient Records regulations: The Federal rules restrict any use of the information to criminally investigate or prosecute any alcohol or drug abuse patient.[facility] HospitalIn the event this information is protected by the Federal Confidentiality of Alcohol and Drug Abuse Patient Records regulations: The Federal rules restrict any use of the information to criminally investigate or prosecute any alcohol or drug abuse patient.[facility] HospitalIn the event this information is protected by the Federal Confidentiality of Alcohol and Drug Abuse Patient Records regulations: The Federal rules restrict any use of the information to criminally investigate or prosecute any alcohol or drug abuse patient.[facility] HospitalIn the event this information is protected by the Federal Confidentiality of Alcohol and Drug Abuse Patient Records regulations: The Federal rules restrict any use of the information to criminally investigate or prosecute any alcohol or drug abuse patient.[facility] HospitalIn the event this information is protected by the Federal Confidentiality of Alcohol and Drug Abuse Patient Records regulations: The Federal rules restrict any use of the information to criminally investigate or prosecute any alcohol or drug abuse patient.[facility] HospitalIn the event this information is protected by the Federal Confidentiality of Alcohol and Drug Abuse Patient Records regulations: The Federal rules restrict any use of the information to criminally investigate or prosecute any alcohol or drug abuse patient.[facility] HospitalIn the event this information is protected by the Federal Confidentiality of Alcohol and Drug Abuse Patient Records regulations: The Federal rules restrict any use of the information to criminally investigate or prosecute any alcohol or drug abuse patient.[facility] HospitalIn the event this information is protected by the Federal Confidentiality of Alcohol and Drug Abuse Patient Records regulations: The Federal rules restrict any use of the information to criminally investigate or prosecute any alcohol or drug abuse patient.[facility] HospitalIn the event this information is protected by the Federal Confidentiality of Alcohol and Drug Abuse Patient Records regulations: The Federal rules restrict any use of the information to criminally investigate or prosecute any alcohol or drug abuse patient.[facility] HospitalIn the event this information is protected by the Federal Confidentiality of Alcohol and Drug Abuse Patient Records regulations: The Federal rules restrict any use of the information to criminally investigate or prosecute any alcohol or drug abuse patient.[facility] HospitalIn the event this information is protected by the Federal Confidentiality of Alcohol and Drug Abuse Patient Records regulations: The Federal rules restrict any use of the information to criminally investigate or prosecute any alcohol or drug abuse patient.[facility] HospitalIn the event this information is protected by the Federal Confidentiality of Alcohol and Drug Abuse Patient Records regulations: The Federal rules restrict any use of the information to criminally investigate or prosecute any alcohol or drug abuse patient.[facility] HospitalIn the event this information is protected by the Federal Confidentiality of Alcohol and Drug Abuse Patient Records regulations: The Federal rules restrict any use of the information to criminally investigate or prosecute any alcohol or drug abuse patient.[facility] HospitalIn the event this information is protected by the Federal Confidentiality of Alcohol and Drug Abuse Patient Records regulations: The Federal rules restrict any use of the information to criminally investigate or prosecute any alcohol or drug abuse patient.[facility] HospitalIn the event this information is protected by the Federal Confidentiality of Alcohol and Drug Abuse Patient Records regulations: The Federal rules restrict any use of the information to criminally investigate or prosecute any alcohol or drug abuse patient.[facility] HospitalIn the event this information is protected by the Federal Confidentiality of Alcohol and Drug Abuse Patient Records regulations: The Federal rules restrict any use of the information to criminally investigate or prosecute any alcohol or drug abuse patient.[facility] HospitalIn the event this information is protected by the Federal Confidentiality of Alcohol and Drug Abuse Patient Records regulations: The Federal rules restrict any use of the information to criminally investigate or prosecute any alcohol or drug abuse patient.[facility] HospitalIn the event this information is protected by the Federal Confidentiality of Alcohol and Drug Abuse Patient Records regulations: The Federal rules restrict any use of the information to criminally investigate or prosecute any alcohol or drug abuse patient.[facility] HospitalIn the event this information is protected by the Federal Confidentiality of Alcohol and Drug Abuse Patient Records regulations: The Federal rules restrict any use of the information to criminally investigate or prosecute any alcohol or drug abuse patient.[facility] HospitalIn the event this information is protected by the Federal Confidentiality of Alcohol and Drug Abuse Patient Records regulations: The Federal rules restrict any use of the information to criminally investigate or prosecute any alcohol or drug abuse patient.[facility] HospitalIn the event this information is protected by the Federal Confidentiality of Alcohol and Drug Abuse Patient Records regulations: The Federal rules restrict any use of the information to criminally investigate or prosecute any alcohol or drug abuse patient.[facility] HospitalIn the event this information is protected by the Federal Confidentiality of Alcohol and Drug Abuse Patient Records regulations: The Federal rules restrict any use of the information to criminally investigate or prosecute any alcohol or drug abuse patient.[facility] HospitalIn the event this information is protected by the Federal Confidentiality of Alcohol and Drug Abuse Patient Records regulations: The Federal rules restrict any use of the information to criminally investigate or prosecute any alcohol or drug abuse patient.[facility] HospitalIn the event this information is protected by the Federal Confidentiality of Alcohol and Drug Abuse Patient Records regulations: The Federal rules restrict any use of the information to criminally investigate or prosecute any alcohol or drug abuse patient.[facility] HospitalIn the event this information is protected by the Federal Confidentiality of Alcohol and Drug Abuse Patient Records regulations: The Federal rules restrict any use of the information to criminally investigate or prosecute any alcohol or drug abuse patient.[facility] HospitalIn the event this information is protected by the Federal Confidentiality of Alcohol and Drug Abuse Patient Records regulations: The Federal rules restrict any use of the information to criminally investigate or prosecute any alcohol or drug abuse patient.[facility] HospitalIn the event this information is protected by the Federal Confidentiality of Alcohol and Drug Abuse Patient Records regulations: The Federal rules restrict any use of the information to criminally investigate or prosecute any alcohol or drug abuse patient.[facility] HospitalIn the event this information is protected by the Federal Confidentiality of Alcohol and Drug Abuse Patient Records regulations: The Federal rules restrict any use of the information to criminally investigate or prosecute any alcohol or drug abuse patient.[facility] HospitalIn the event this information is protected by the Federal Confidentiality of Alcohol and Drug Abuse Patient Records regulations: The Federal rules restrict any use of the information to criminally investigate or prosecute any alcohol or drug abuse patient.[facility] HospitalIn the event this information is protected by the Federal Confidentiality of Alcohol and Drug Abuse Patient Records regulations: The Federal rules restrict any use of the information to criminally investigate or prosecute any alcohol or drug abuse patient.[facility] HospitalIn the event this information is protected by the Federal Confidentiality of Alcohol and Drug Abuse Patient Records regulations: The Federal rules restrict any use of the information to criminally investigate or prosecute any alcohol or drug abuse patient.[facility] HospitalIn the event this information is protected by the Federal Confidentiality of Alcohol and Drug Abuse Patient Records regulations: The Federal rules restrict any use of the information to criminally investigate or prosecute any alcohol or drug abuse patient.[facility] HospitalIn the event this information is protected by the Federal Confidentiality of Alcohol and Drug Abuse Patient Records regulations: The Federal rules restrict any use of the information to criminally investigate or prosecute any alcohol or drug abuse patient.[facility] HospitalIn the event this information is protected by the Federal Confidentiality of Alcohol and Drug Abuse Patient Records regulations: The Federal rules restrict any use of the information to criminally investigate or prosecute any alcohol or drug abuse patient.[facility] HospitalIn the event this information is protected by the Federal Confidentiality of Alcohol and Drug Abuse Patient Records regulations: The Federal rules restrict any use of the information to criminally investigate or prosecute any alcohol or drug abuse patient.[facility] HospitalIn the event this information is protected by the Federal Confidentiality of Alcohol and Drug Abuse Patient Records regulations: The Federal rules restrict any use of the information to criminally investigate or prosecute any alcohol or drug abuse patient.[facility] HospitalIn the event this information is protected by the Federal Confidentiality of Alcohol and Drug Abuse Patient Records regulations: The Federal rules restrict any use of the information to criminally investigate or prosecute any alcohol or drug abuse patient.[facility] HospitalIn the event this information is protected by the Federal Confidentiality of Alcohol and Drug Abuse Patient Records regulations: The Federal rules restrict any use of the information to criminally investigate or prosecute any alcohol or drug abuse patient.[facility] HospitalIn the event this information is protected by the Federal Confidentiality of Alcohol and Drug Abuse Patient Records regulations: The Federal rules restrict any use of the information to criminally investigate or prosecute any alcohol or drug abuse patient.[facility] HospitalIn the event this information is protected by the Federal Confidentiality of Alcohol and Drug Abuse Patient Records regulations: The Federal rules restrict any use of the information to criminally investigate or prosecute any alcohol or drug abuse patient.[facility] HospitalIn the event this information is protected by the Federal Confidentiality of Alcohol and Drug Abuse Patient Records regulations: The Federal rules restrict any use of the information to criminally investigate or prosecute any alcohol or drug abuse patient.[facility] [place] the event this information is protected by the Federal Confidentiality of Alcohol and Drug Abuse Patient Records regulations: The Federal rules restrict any use of the information to criminally investigate or prosecute any alcohol or drug abuse patient.[facility] HospitalIn the event this information is protected by the Federal Confidentiality of Alcohol and Drug Abuse Patient Records regulations: The Federal rules restrict any use of the information to criminally investigate or prosecute any alcohol or drug abuse patient.[facility] HospitalIn the event this information is protected [...] any alcohol or drug abuse patient.[facility] HospitalIn the event this information is protected by the Federal Confidentiality of Alcohol and Drug Abuse Patient Records regulations: The Federal rules restrict any use of the information to criminally investigate or prosecute any alcohol or drug abuse patient.[facility] HospitalIn the event this information is protected by the Federal Confidentiality of Alcohol and Drug Abuse Patient Records regulations: The Federal rules restrict any use of the information to criminally investigate or prosecute any alcohol or drug abuse patient.[facility] Care Teams (unrecognized sec tion and content) Team Status: Active Member Role Status Dates WALESKA Galloway Primary Care Provider Active Team Status: Inactive Member Role Status Dates WALESKA Galloway Primary Care Provider Active Start: November 30, 2024 End: November 30, 2024Pefrank Arnett NPAttending ProviderActiveStart: November 30, 2024 End: November 30, 2024 Team Status: Inactive Member Role Status Dates Gay Natalie Britt , FILM COATER-C Primary Care Provider Active Start: December 12, 2024 End: December 12, 2024Luiz Gee ProviderActiveStart: December 12, 2024 End: December 12, 2024 Team Status: Inactive Member Role Status Dates Gay De La Torre , FILM COATER-C Primary Care Provider Active Start: January 17, 2025 End: January 17, 2025Pefrank Arnett NPAttending ProviderActiveStart: January 17, 2025 End: January 17, 2025 Team Status: Active Member Role Status Dates Gay De La Torre FILM COATER-C Primary Care Provider Active Start: January 31, 2025 Bill Pickeringending ProviderActiveStart: January 31, 2025 Amy Pickering ProviderActiveStart: January 31, 2025 Team Status: Inactive Member Role Status Dates Gay De La Torre FILM COATER-C Primary Care Provider Active Start: February 14, [...] Role Status Dates Gay De La Torre FILM COATER-C Primary Care Provider Active Start: November 21, 2024 Adolfo Kang MDAttending ProviderActiveStart: November 21, 2024 Team Status: Inactive Member Role Status Dates Gay De La Torre FILM COATER-C Primary Care Provider Active Start: November 21, 2024 End: November 21, 2024Adolfo Kang MDAttending ProviderActiveStart: November 21, 2024 End: November 21, 2024 Team Status: Active Member Role Status Dates Gay De La Torre FILM COATER-C Primary Care Provider Active Start: November 22, 2024 Janes Carolyne , MDAttending ProviderActiveStart: November 22, 2024 Team Status: Active Member Role Status Mark Slaomon MD Primary Care Provider Active Team Status: [...] MemberRelationshipSpecialtyStart DateEnd Date Gay De La Torre, VOCATIONAL EXAMINER.OFFICE SERVICES ASSISTANT [address] [id number] PCP - GeneralFamily Practice10/24/21Team MemberRelationshipSpecialtyStart DateEnd Date Gay De La Torre, VOCATIONAL EXAMINER.OFFICE SERVICES ASSISTANT [address] [place] [address] PCP - GeneralFamily Medicine10/24/21 Manuel Ferris MD [address] [place] [address] ReferringFamily Medicine02/12/22Team MemberRelationshipSpecialtyStart DateEnd Date Manuel Ferris MD [address] [place] [address] PCP - GeneralFamily Lxsyuven62/7/22 Manuel Ferris MD [address] [place] [address] ReferringFamily Medicine02/12/22Team MemberRelationshipSpecialtyStart DateEnd Date Manuel Ferris MD [address] [place] [facility] [place] [address] PCP - Generalmily Fedlfwxy31/7/22 Manuel Ferris MD [address] [place] [place] [address] ReferringFamily Medicine02/12/22Team MemberRelationshipSpecialtyStart DateEnd Date Manuel Ferris MD [address] [place] [place] [address] PCP - Generalmi Xdzpabbu72/7/22 Manuel Ferris MD [address] [place] [place] [address] ReferringFamily Medicine02/12/22Team MemberRelationshipSpecialtyStart DateEnd Date Manuel Ferris MD [address] [place] [place] [address] PCP - Generalmily Ielrezhc81/7/22 Manuel Ferris MD [address] [place] [place] [place] [address] ReferringFamily Medicine02/12/22Team MemberRelationshipSpecialtyStart DateEnd Date Manuel Ferris MD [address] [place] [place] [place] [address] PCP - Generalmily Hhmdeqck78/7/22 Manuel Ferris MD [address] [place] [place] [place] [address] ReferringFamily Medicine02/12/22Team MemberRelationshipSpecialtyStart DateEnd Date Manuel Ferris MD [address] [place] [place] [address] PCP - GeneralFamily Fqbohmjn81/7/22 Manuel Ferris MD [address] [place] [place] [place] [address] ReferringFamily Medicine02/12/22Team MemberRelationshipSpecialtyStart DateEnd Date Manuel Ferris MD [address] [place] [place] [place] [address] PCP - GeneralFamily Ijwdvhfq61/7/22 Manuel Ferris MD [address] [place] [place] [address] ReferringFamily Medicine02/12/22Team MemberRelationshipSpecialtyStart DateEnd Date Manuel Ferris MD [address] [place] [place] [place] [address] PCP - GeneralFamily Xsyjpark09/7/22 Manuel Ferris MD [address] [place] [place] [place] [address] ReferringFamily Medicine02/12/22Team MemberRelationshipSpecialtyStart DateEnd Date Manuel Ferris MD [address] [place] [place] [address] PCP - GeneralFamily Uzokxlcm54/7/22 Manuel Ferris MD [address] [place] [place] [address] ReferringFamily Medicine02/12/22Team MemberRelationshipSpecialtyStart DateEnd Date Manuel Ferris MD [address] [place] [place] [address] PCP - GeneralFamily Nvnkkdmt84/7/22 Manuel Ferris MD [address] [place] [place] [address] ReferringFamily Medicine02/12/22Team MemberRelationshipSpecialtyStart DateEnd Date Manuel Ferris MD [address] [place] [place] [address] PCP - GeneralFamily Xnstrnck29/7/22 Manuel Ferris MD [address] [place] [address] ReferringFamily Medicine02/12/22Team MemberRelationshipSpecialtyStart DateEnd Date Manuel Ferris MD [address] [place] [address] PCP - GeneralFamily Qousnapp48/7/22 Manuel Ferris MD [address] [place] [place] [address] ReferringFamily Medicine02/12/22Team MemberRelationshipSpecialtyStart DateEnd Date Manuel Ferris MD [address] [place] [address] PCP - GeneralFamily Lqgbccwz15/7/22 Manuel Ferris MD [address] [place] [address] ReferringFamily Medicine02/12/22Team MemberRelationshipSpecialtyStart DateEnd Date Manuel Ferris MD [address] [place] [place] [address] PCP - GeneralFamily Napohzne33/7/22 Manuel Ferris MD [address] [place] [place] [address] ReferringFamily Medicine02/12/22Team MemberRelationshipSpecialtyStart DateEnd Date Manuel Ferris MD [address] [place] [place] [address] PCP - GeneralFamily Tryrkcya60/7/22 Manuel Ferris MD [address] [place] [address] ReferringFamily Medicine02/12/22Team MemberRelationshipSpecialtyStart DateEnd Date Manuel Ferris MD [address] [place] [address] PCP - GeneralFamily Hamndvfc24/7/22 Manuel Ferris MD [address] [place] [address] ReferringFamily Medicine02/12/22Team MemberRelationshipSpecialtyStart DateEnd Date Manuel Ferris MD [address] [place] [address] PCP - Generalmily Isccplee58/7/22 Manuel Ferris MD [address] [place] [address] ReferringFamily Medicine02/12/22Team MemberRelationshipSpecialtyStart DateEnd Date Manuel Ferris MD [address] [place] [address] PCP - Generalmily Tmgsdqqn45/7/22 Manuel Ferris MD [address] [place] [address] ReferringFamily Medicine02/12/22Team MemberRelationshipSpecialtyStart DateEnd Date Manuel Ferris MD [address] [place] [address] PCP - GeneralFamily Sgjzxiut79/7/22 Manuel Ferris MD [address] [place] [address] ReferringFamily Medicine02/12/22Team MemberRelationshipSpecialtyStart DateEnd Date Manuel Ferris MD [address] [place] [address] PCP - GeneralFamily Zkzpouog45/7/22 Manuel Ferris MD [address] [place] [address] ReferringFamily Medicine02/12/22Team MemberRelationshipSpecialtyStart DateEnd Date Manuel Ferris MD [address] [place] [address] PCP - GeneralFamily Gsxmdqer43/7/22 Manuel Ferris MD [address] [place] [address] ReferringFamily Medicine02/12/22Team MemberRelationshipSpecialtyStart DateEnd Date Manuel Ferris MD PCP - GeneralFamily Qoooamlf82/7/22 Manuel Ferris MD ReferringFamily Medicine02/12/22Team MemberRelationshipSpecialtyStart DateEnd Date Manuel Ferris MD PCP - GeneralFamily Kdblhlui85/7/22 Manuel Ferris MD ReferringFamily Medicine02/12/22Team MemberRelationshipSpecialtyStart DateEnd Date Manuel Ferris MD PCP - GeneralFamily Jvmudvnv17/7/22 Manuel Ferris MD ReferringFamily Medicine02/12/22Team MemberRelationshipSpecialtyStart DateEnd Date Manuel Ferris MD PCP - GeneralFamily Tqxqevor36/7/22 Manuel Ferris MD ReferringFamily Medicine02/12/22Team MemberRelationshipSpecialtyStart DateEnd Date Manuel Ferris MD PCP - GeneralFamily Xqkqqwnq80/7/22 Manuel Ferris MD ReferringFamily Medicine02/12/22Team MemberRelationshipSpecialtyStart DateEnd Date Manuel Ferris MD PCP - GeneralFamily Mguqyuwc95/7/22 Manuel Ferris MD ReferringFamily Medicine02/12/22Team MemberRelationshipSpecialtyStart DateEnd Date Manuel Ferris MD PCP - GeneralFamily Ddqzlnrg18/7/22 Manuel Ferris MD ReferringFamily Medicine02/12/22Team MemberRelationshipSpecialtyStart DateEnd Date Manuel Ferris MD PCP - GeneralFamily Jgeswtyy90/7/22 Manuel Ferris MD ReferringFamily Medicine02/12/22Team MemberRelationshipSpecialtyStart DateEnd Date Manuel Ferris MD PCP - GeneralFamily Immbneqo01/7/22 Manuel Ferris MD ReferringFamily Medicine02/12/22Team MemberRelationshipSpecialtyStart DateEnd Date Manuel Ferris MD PCP - Generalmily Sesyowgn90/7/22 Manuel Ferris MD ReferringFamily Medicine02/12/22Team MemberRelationshipSpecialtyStart DateEnd Date Manuel Ferris MD PCP - Generalmily Yofdxifb55/7/22 Manuel Ferris MD ReferringFamily Medicine02/12/22Team MemberRelationshipSpecialtyStart DateEnd Date Manuel Ferris MD PCP - GeneralFamily Twuyyoia18/7/22 Manuel Ferris MD ReferringFamily Medicine02/12/22Team MemberRelationshipSpecialtyStart DateEnd Date Manuel Ferris MD PCP - GeneralFamily Nbyjddof97/7/22 Manuel Ferris MD ReferringFamily Medicine02/12/22Team MemberRelationshipSpecialtyStart DateEnd Date Manuel Ferris MD PCP - GeneralFamily Fzjicbyp23/7/22 Manuel Ferris MD ReferringFamily Medicine02/12/22Team MemberRelationshipSpecialtyStart DateEnd Date Manuel Ferris MD PCP - GeneralFamily Ylcqcgpy77/7/22 Manuel Ferris MD ReferringFamily Medicine02/12/22Team MemberRelationshipSpecialtyStart DateEnd Date Manuel Ferris MD PCP - Generalmily Tfyjgqzq46/7/22 Manuel Ferris MD ReferringFamily Medicine02/12/22Team MemberRelationshipSpecialtyStart DateEnd Date Manuel Ferris MD PCP - GeneralFamily Sxxbzlia47/7/22 Manuel Ferris MD ReferringFamily Medicine02/12/22Team MemberRelationshipSpecialtyStart DateEnd Date Manuel Ferris MD PCP - GeneralFamily Szexykgq04/7/22 Manuel Ferris MD ReferringFamily Medicine02/12/22Team MemberRelationshipSpecialtyStart DateEnd Date Manuel Ferris MD PCP - GeneralFamily Pgawongm85/7/22 Manuel Ferris MD ReferringFamily Medicine02/12/22Team MemberRelationshipSpecialtyStart DateEnd Date Manuel Ferris MD PCP - GeneralFamily Sfuvbbpw12/7/22 Manuel Ferris MD ReferringFamily Medicine02/12/22Team MemberRelationshipSpecialtyStart DateEnd Date Manuel Ferris MD PCP - GeneralFamily Tnorhoao41/7/22 Manuel Ferris MD ReferringFamily Medicine02/12/22Team MemberRelationshipSpecialtyStart DateEnd Date Manuel Ferris MD PCP - GeneralFamily Gxycecbk50/7/22 Manuel Ferris MD ReferringFamily Medicine02/12/22Team MemberRelationshipSpecialtyStart DateEnd Date Manuel Ferris MD PCP - GeneralFamily Jkwemish57/7/22 Manuel Ferris MD ReferringFamily Medicine02/12/22Team MemberRelationshipSpecialtyStart DateEnd Date Manuel Ferris MD PCP - Generalmily Wxsktbgv35/7/22 Manuel Ferris MD ReferringFamily Medicine02/12/22Team MemberRelationshipSpecialtyStart DateEnd Date Manuel Ferris MD PCP - Generalmily Jkclskcn33/7/22 Manuel Ferris MD Referringmily Medicine02/12/22Team MemberRelationshipSpecialtyStart DateEnd Date Manuel Ferris MD PCP - GeneralBuchanan County Health Centerly Diuzykvx85/7/22 Manuel Ferris MD ReferringP[facility] Medicine02/12/22Team MemberRelationshipSpecialtyStart DateEnd Date Charles Nicole [address] [place] [address] PCP - General10/22/18 Michelle Jasmine, VOCATIONAL EXAMINER-OFFICE SERVICES ASSISTANT [address] [place] [phone] Nurse PractitionerCardiology06/08/23Team MemberRelationshipSpecialtyStart DateEnd Date Gay De La Torre, VOCATIONAL EXAMINER-OFFICE SERVICES ASSISTANT [address] [place] [address] PCP - General07/13/23 Michelle Jasmine, VOCATIONAL EXAMINER-OFFICE SERVICES ASSISTANT [address] [facility] [address] [place], [place] [phone] Nurse PractitionerCardiology06/08/23 Aurora Patel MD [address] [facility] [address] [place] [address] Consulting PhysicianCardiology06/23/23Team MemberRelationshipSpecialtyStart Date End Date Manuel Ferris MD PCP - GeneralBuchanan County Health Centerly Cvccjxtp41/7/22 Manuel Ferris MD ReferringFamily Medicine02/12/22Team MemberRelationshipSpecialtyStart DateEnd Date Manuel Ferris MD PCP - GeneralFamily Hrgjfpis46/7/22 Manuel Ferris MD ReferringFamily Medicine02/12/22 Team Status: Active Member Role Status Mark Salomon MD Primary Care Provider Active Start: July 28, 2023 Virgil Green MDAttchristopher ProviderActiveStart: July 28, 2023 Team MemberRelationshipSpecialtyStart DateEnd Date Manuel Ferris MD PCP - [facility] Hlegwgmn41/7/22 Manuel Ferris MD ReferringFaamesbury health center Medicine02/12/22 Team Status: Inactive Member Role Status Mark Salomon MD Primary Care Provider Active Start: December 16, 2023 End: December 16, 2023Zarina Mccollum ProviderActiveStart: December 16, 2023 End: December 16, 2023Team MemberRelationshipSpecialtyStart DateEnd Date Manuel Ferris MD PCP - GeneralFamily Uhzrojcm37/7/22 Manuel Ferris MD ReferringFamily Medicine02/12/22Team MemberRelationshipSpecialtyStart DateEnd Date Manuel Ferris MD PCP - Generalmily Pghfhqgx71/7/22 Manuel Ferris MD ReferringFamily Medicine02/12/22Team MemberRelationshipSpecialtyStart DateEnd Date Manuel Ferris MD PCP - GeneralFamily Auendryv81/7/22 Manuel Ferris MD ReferringFamily Medicine02/12/22Team MemberRelationshipSpecialtyStart DateEnd Date Manuel Ferris MD PCP - GeneralFamily Pmhpskkl05/7/22 Manuel Ferris MD ReferringFamily Medicine02/12/22 Team Status: [...] End: February 15kendrick De La Torre , FILM COATER-CPrimary Care ProviderActive Start: February 16, 2024 End: February 16, 2024 Team Status: Active Member Role Status Dates Adolfo Kang MD Attending Provider, Other Provider Active Start: February 16, 2024 Gay De La Torre , FILM COATER-CPrimary Care ProviderActiveStart: February 16, 2024 Team Status: Inactive Member Role Status Dates Adolfo Kang MD Attending Provider Active Sta rt: February 28, 2024 End: February 27kendrick De La Torre , FILM COATER-CPrimary Care ProviderActiveStart: February 28, 2024 End: February 28, 2024Team MemberRelationshipSpecialtyStart DateEnd Date Charles Nicole MD [address] [place] [address] PCP - GeneralFamily Medicine02/09/24 Team Status: Inactive Member Role Status Dates Gay De La Torre , FILM COATER-C Primary Care Provider Active Start: March 16, 2024 End: March 16Luiz Park ProviderActiveStart: March 16, 2024 End: March 16, 2024Team MemberRelationshipSpecialtyStart DateEnd Charles Russell MD [address] [place] [address] PCP - GeneralFamily Medicine02/09/24Team MemberRelationshipSpecialtyStart DateEnd Charles Russell MD [address] [place] [address] PCP - Generalmily Medicine02/09/24Team MemberRelationshipSpecialtyStart DateEnd Date Charles Nicole MD [address] [place] [address] PCP - GeneralFamily Medicine02/09/24Team MemberRelationshipSpecialtyStart DateEnd Date Charles Nicole MD [address] [facility] [place] [address] PCP - GeneralFamily Medicine02/09/24Team MemberRelationshipSpecialtyStart DateEnd Date Charles Nicole MD [address] [place] [address] PCP - GeneralFamily Medicine02/09/24Team MemberRelationshipSpecialtyStart DateEnd On License Of [facility] Manuel Ferris MD PCP - GeneralFamily Mqcvpmoj55/7/22 Manuel Ferris MD ReferringFamily Medicine02/12/22Team MemberRelationshipSpecialtyStart DateEnd Date Charles Nicole MD [address] [place] [address] PCP - GeneralFamily Medicine02/09/24Team MemberRelationshipSpecialtyStart DateEnd Date Charles Nicole MD [address] [place] [address] PCP - GeneralFamily Medicine02/09/24Team MemberRelationshipSpecialtyStart DateEnd Date Charles Nicole MD [address] [place] [address] PCP - GeneralFamily Medicine02/09/24Team MemberRelationshipSpecialtyStart DateEnd Date Charles Nicole MD [address] [place] [address] PCP - GeneralFamily Medicine02/09/24Team MemberRelationshipSpecialtyStart DateEnd Date Manuel Ferris MD PCP - GeneralFamily Ciggzzfx43/7/22 Manuel Ferris MD ReferringFamily Medicine02/12/22Team MemberRelationshipSpecialtyStart DateEnd Date Charles Nicole MD [address] [place] [address] PCP - GeneralFamily Medicine02/09/24Team MemberRelationshipSpecialtyStart DateEnd Date Manuel Ferris MD PCP - GeneralFamily Yopwgpmd68/7/22 Manuel Ferris MD ReferringFamily Medicine02/12/22Team MemberRelationshipSpecialtyStart DateEnd Date Manuel Ferris MD PCP - GeneralFamily Rpsayfin87/7/22 Manuel Ferris MD ReferringFamily Medicine02/12/22Team MemberRelationshipSpecialtyStart DateEnd Date Charles Nicole MD [address] [place] [address] PCP - GeneralFamily Medicine02/09/24Team MemberRelationshipSpecialtyStart DateEnd Date Manuel Ferris MD PCP - GeneralFamily Xoifbwih57/7/22 Manuel Ferris MD ReferringFaamesbury health center Medicine02/12/22 Manuel Ferris MD [address] [place] [address] [facility]07/06/24 Team Status: Inactive Member Role Status Dates Gay De La Torre FILM COATER-C Primary Care Provider Active Start: July 10, 2024 End: July 10, 2024Adolfo Kang MDAttchristopher ProviderActiveStart: July 10, 2024 End: July 10, 2024Team MemberRelationshipSpecialtyStart DateEnd Date Manuel Ferris MD PCP - Generalmily Vpwpcotq82/7/22 Manuel Ferris MD ReferringFamily Medicine02/12/22 Manuel Ferris MD [address] [place] [address] ReferringAt[facility]07/06/24Team MemberRelationshipSpecialtyStart DateEnd Date Manuel Ferris MD PCP - GeneralP[facility] Prhzafok30/7/22 Manuel Ferris MD ReferringFamily Medicine02/12/22 Manuel Ferris MD [address] [place] [address] ReferringFamily Medicine07/06/24 Team Status: Inactive Member Role Status Dates Gay De La Torre , FILM COATER-C Primary Care Provider Active Start: July 19, 2024 End: July 19, 2024Shana Kang MDAttending ProviderActiveStart: July 19, 2024 End: July 19, 2024Team MemberRelationshipSpecialtyStart DateEnd Date Gay De La Torre MD [facility] [place] [address] Referring PhysicianFamily Medicine07/18/24Team MemberRelationshipSpecialtyStart DateEnd Date Manuel Ferris MD PCP - GeneralFamily Pgcrarvm13/7/22 Manuel Ferris MD ReferringFamily Medicine02/12/22 Manuel Ferris MD [facility] [place] [address] ReferringFamily Medicine07/06/24Team MemberRelationshipSpecialtyStart DateEnd Date Gay De La Torre MD [address] [place] [address] Referring Physicianmily Medicine07/18/24Team MemberRelationshipSpecialtyStart DateEnd Date Gay De La Torre, VOCATIONAL EXAMINER-OFFICE SERVICES ASSISTANT [address] [place] [address] PCP - General07/13/23 Michelle Jasmine, VOCATIONAL EXAMINER-OFFICE SERVICES ASSISTANT Nurse PractitionerCardiology06/08/23 Aurora Patel MD Consulting PhysicianCardiology06/23/23 Team Status: Active Member Role Status Dates Gay De La Torre FILM COATER-C Primary Care Provider Active Start: July 19, 2024 Adolfo Kang MDAttending Provider, Other ProviderActiveStart: July 19, 2024 Team Status: Inactive Member Role Status Dates aGy De La Torre NP-C Primary Care Provider Active Start: July 31, 2024 End: July 31, 2024Shana Kang , MDAttending ProviderActiveStart: July 31, 2024 End: July 31, 2024Team MemberRelationshipSpecialtyStart DateEnd Date Manuel Ferris MD PCP - GeneralFamily Vimhzrcb75/7/22 Manuel Ferris MD ReferringFamily Medicine02/12/22 Manuel Ferris MD [address] [place] [address] ReferringFamily Medicine07/06/24Team MemberRelationshipSpecialtyStart DateEnd Date Manuel Ferris MD PCP - GeneralFamily Hqqdbgbq09/7/22 Manuel Ferris MD ReferringFamily Medicine02/12/22 Manuel Ferris MD [address] [place] [address] ReferringAt[facility] Health [facility]07/06/24Team MemberRelationshipSpecialtyStart DateEnd Date Manuel Ferris MD P[facility] - [facility] Cfyjfnbb83/7/22 Manuel Ferris MD Referringmily Medicine02/12/22 Manuel Ferris MD [address] [place] [address] ReferringAt[facility]07/06/24 Team Status: Inactive Member Role Status Dates Gay De La Torre FILM COATER-C Primary Care Provider Active Start: August 22, 2024 End: August 22, 2024Adolfo Kang MDAttchristopher ProviderActiveStart: August 22, 2024 End: August 22, 2024Team MemberRelationshipSpecialtyStart DateEnd Date Gay De La Torre MD [address] [place] [phone] Referring [facility] [place]07/18/24Team MemberRelationshipSpecialtyStart DateEnd Date Manuel Ferris MD PCP - GeneralP[facility] Ttuvzkwo27/7/22 Manuel Ferris MD ReferringPittsfield General Hospital Medicine02/12/22 Manuel Ferris MD [address] [place] [address] ReferringAt[facility]07/06/24Team MemberRelationshipSpecialtyStart DateEnd Date Manuel Ferris MD PCP - GeneralFamily Vqgelwet96/7/22 Manuel Ferris MD ReferringFamily Medicine02/12/22 Manuel Ferris MD [address] [place] [address] ReferringFamily Medicine07/06/24Team MemberRelationshipSpecialtyStart DateEnd Date Gay De La Torre MD [address] [place] [address] Referring PhysicianPittsfield [facility] Hospital Medicine07/18/24Team MemberRelationshipSpecialtyStart DateEnd Date Gay De La Torre MD [address] [place] [address] Referring PhysicianPittsfield [facility] Hospital Medicine07/18/24Team MemberRelationshipSpecialtyStart DateEnd Date Manuel Ferris MD PCP - GeneralFamily Knegwype69/7/22 Manuel Ferris MD ReferringFamily Medicine02/12/22 Manuel Ferris MD [address] [place] [address] ReferringFamily Medicine07/06/24Team MemberRelationshipSpecialtyStart DateEnd Date Manuel Ferris MD PCP - GeneralFamily Lwybsoio65/7/22 Manuel Ferris MD ReferringFamily Medicine02/12/22 Manuel Ferris MD [address] [place] [address] ReferringFamily Medicine07/06/24Team MemberRelationshipSpecialtyStart DateEnd Date Manuel Ferris MD PCP - GeneralFamily Hynzxprb38/7/22 Manuel Ferris MD ReferringFamily Medicine02/12/22 Manuel Ferris MD [address] [place] [phone] ReferringFami Medicine07/06/24Team MemberRelationshipSpecialtyStart DateEnd Date Manuel Ferris MD PCP - GeneralFamily Jbwjones27/7/22 Manuel Ferris MD ReferringFamily Medicine02/12/22 Manuel Ferris MD [address] [place] [phone] ReferringFamily Medicine07/06/24Team MemberRelationshipSpecialtyStart DateEnd Date Manuel Ferris MD PCP - GeneralFamily Kxmgwqrd92/7/22 Manuel Ferris MD ReferringFamily Medicine02/12/22 Manuel Ferris MD [address] [place] [address] ReferringFamily Medicine07/06/24Team MemberRelationshipSpecialtyStart DateEnd Date Manuel Ferris MD PCP - GeneralFamily Tcranzul95/7/22 Manuel Ferris MD ReferringFamily Medicine02/12/22 Manuel Ferris MD [address] [place] [address] ReferringFami Medicine07/06/24Team MemberRelationshipSpecialtyStart DateEnd Date Manuel Ferris MD PCP - GeneralFamily Ejxgwjql46/7/22 Manuel Ferris MD ReferringFamily Medicine02/12/22 Manuel Ferris MD [address] [place] [phone] ReferringFamily Medicine07/06/24Team MemberRelationshipSpecialtyStart DateEnd Date Manuel Ferris MD PCP - GeneralFamily Mjuczeji37/7/22 Manuel Ferris MD ReferringFamily Medicine02/12/22 Manuel Ferris MD [address] [place] [facility] [address] ReferringFamily Medicine07/06/24Team MemberRelationshipSpecialtyStart DateEnd Date Manuel Ferris MD PCP - GeneralFamily Hrntzzgf26/7/22 Manuel Ferris MD ReferringFamily Medicine02/12/22 Manuel Ferris MD [address] [place] [facility] [place] [address] ReferringFamily Medicine07/06/24Team MemberRelationshipSpecialtyStart DateEnd Date Manuel Ferris MD PCP - GeneralFamily Itzuyddz67/7/22 Manuel Ferris MD ReferringFamily Medicine02/12/22 Manuel Ferris MD [address] [place] [address] ReferringFamily Medicine07/06/24Team MemberRelationshipSpecialtyStart DateEnd Date Manuel Ferris MD PCP - GeneralFamily Kmdrthjx13/7/22 Manuel Ferris MD ReferringFamily Medicine02/12/22 Manuel Ferris MD [address] [place] [facility] [place] [address] ReferringFamily Medicine07/06/24Team MemberRelationshipSpecialtyStart DateEnd Date Manuel Ferris MD PCP - [facility] Otoiknen70/7/22 Manuel Ferris MD ReferringFadely Medicine02/12/22 Manuel Ferris MD [address] [place] [address] ReferringAt[facility]07/06/24Team MemberRelationshipSpecialtyStart DateEnd Date Manuel Ferris MD PCP - [facility] Bgwjtvmb17/7/22 Manuel Ferris MD ReferringP[facility]field [facility] Hospital Medicine02/12/22 Manuel Ferris MD [address] [place] [address] ReferringAt[facility]07/06/24 Team Status: Inactive Member Role Status Dates [...] DateEnd Date Gay De La Torre MD [address] [place], [place] [phone] Referring [facility] [place]07/18/24Team MemberRelationshipSpecialtyStart End Manuel Ferris MD PCP - Generalmily Llggzplq81/7/22 Manuel Ferris MD ReferringFamily Medicine02/12/22 Manuel Ferris MD [address] [place] [address] ReferringAt[facility]07/06/24Team MemberRelationshipSpecialtyStart DateEnd On License Of [facility] Manuel Ferris MD PCP - [facility] Suyjskxp80/7/22 Manuel Ferris MD Referringmily Medicine02/12/22 Manuel Ferris MD [address] [place] [address] ReferringAt[facility]07/06/24Team MemberRelationshipSpecialtyStart End Manuel Ferris MD PCP - [facility] Txtjanbg24/7/22 Manuel Ferris MD ReferringFamily Medicine02/12/22 Manuel Ferris MD [address] [place] [address] ReferringAt[facility]07/06/24 Team Status: Inactive Member Role Status Dates Gay De La Torre FILM COATER-C Primary Care Provider Active Start: January 31, 2025 End: January 31, 2025Zarina Pickering ProviderActiveStart: January 31, 2025 End: January 31, 2025Team MemberRelationshipSpecialtyStart [place] [address] [place] [address] Referring PhysicianAtrium Health [facility]07/18/24Team MemberRelationshipSpecialtyStart DateEnd Date Gay De La Torre MD [address] [place] [address] Referring PhysicianAtrium Health [facility]07/18/24Team MemberRelationshipSpecialtyStart DateEnd Date Gay De La Torre MD [address] [place], [place] [phone] Referring PhysicianAtrium Health [facility]07/18/24 Team Status: Inactive Member Role Status Dates Terence Blum MD Attending Provider Active Sta rt: March 02, 2025 End: March 02, 2025Pafrancesco De La Torre NP-[facility] Care ProviderActiveStart: March 02, 2025 End: March 02, 2025Team MemberRelationshipSpecialtyStart DateEnd Date Gay De La Torre MD [address] [place], [place] [phone] Referring [facility], [place]07/18/24 Team Status: Inactive Member Role Status Dates [...] Role/Relationship Status Dates Gay De La Torre FILM COATER-C Primary Care Provider Active Start: January 17, 2025 End: January 17, 2025Pefrank Arnett NPAttending ProviderActiveStart: January 17, 2025 End: January 17, 2025 Team Status: Active Member Role/Relationship Status Dates Gay De La Torre FILM COATER-C Primary Care Provider Active Start: January 31, 2025 Adolfo Kang MDAttending ProviderActiveStart: January 31, 2025 Adolfo Kang MDOther ProviderActiveStart: January 31, 2025 Team Status: Inactive Member Role/Relationship Status Dates Gay De La Torre FILM COATER-C Primary Care Provider Active Start: February 14, [...] February 28, 2025Pafrancesco De La Torre , FILM COATER-CPrimary Care ProviderActiveStart: February 28, 2025 End: February 28, 2025 Team Status: Inactive Member Role/Relationship Status Dates Terence Blum MD Attending Provider Active Sta rt: March 02, 2025 End: March 02, 2025Pafrancesco De La Torre , FILM COATER-CPrimary Care ProviderActiveStart: March 02, 2025 End: March 02, 2025 Team Status: Inactive Member Role/Relationship Status Dates Jose Perez DO Attending Provider Active S tart: March 03, 2025 End: March 03, 2025 Team Status: Inactive Member Role/Relationship Status Dates Gay De La Torre FILM COATER-C Attending Provider Active Start: March 09, 2025 End: March 09, 2025 Team Status: Active Member Role/Relationship Status Dates NON STAFF Primary Care Provider Active Team Status: Inactive Member Role/Relationship Status Dates Adolfo Kang MD Attending Provider Active Sta rt: March 13, 2025 End: March 13, 2025NON STAFFPrduke university hospitalry Care ProviderActiveStart: March 13, 2025 End: March 13, 2025Team MemberRelationshipSpecialtyStart DateEnd Gay De La TorreTRUE [address] [place] [address] PCP - GeneralNurse Practitioner - Midrpw17/4/24 Inactive Administered Medications - up to 3 [...] BE BASED ON THE PRIMARY CLINICAL RECORDS. [employer] provides no warranty or guarantee of the accuracy or completeness of information in this document.
--- NOTE | 2025-03-22 09:17 | XR_ITS ---
[facility] [place] [id number] Patient Name: JONES HALEY MRN: [id number] date: 1980 Sex: F Assigned Patient Location: [facility] Current Patient Location: [facility] Accession/Order Number: [id number] Exam Date: 03/22/2025 09:50 Report Date: 03/22/2025 12:39 At the request of: KIMBERLY FLORES Procedure: XR hip MARK BILATERAL HIPS - 2 views each COMPARISON: CT 06/26/2023 and plain films 06/24/2023 CLINICAL DATA: Chronic bilateral hip pain. No injury. AP and frog-lateral views were obtained on both sides. No acute fracture or dislocation is identified. The hip joint spaces are symmetric and there is no significant hypertrophy. Tiny enthesophytes are seen at the greater trochanters. No soft tissue abnormalities are visualized. XR/XR hip MARK IMPRESSION: NO ACUTE BONY FINDINGS. Impression dictated by: Simin Nelson M.D. 03/22/2025 12:39 PM Dictation Location: [place] [address] Electronically authenticated by: [id number] Y Date: 03/22/2025 12:39
== END 2025-03-22 08:58 | disposition home or self-care (01) ==
LOC: RAD 08:58
PROVIDERS: PCP Nurse Practitioner Family; Visit Provider Anesthesiology
DX: M25.551 Pain in right hip (principal); M25.552 Pain in left hip
CPT/HCPCS: 73522

== ENCOUNTER 2025-03-27 10:23 | Outpatient (RCR) | payer OTHER, SELFPAY ==
[2025-03-27 11:24] LABS: Lactate/Lactic Acid 2.6 mmol/L (0.4-2.0)
== END 2025-04-23 08:26 | disposition home or self-care (01) ==
LOC: LAB 10:23
PROVIDERS: PCP Nurse Practitioner Family; Visit Provider Nurse Practitioner Family
DX: Z51.81 Encounter for therapeutic drug level monitoring (principal); R79.89 Other specified abnormal findings of blood chemistry
CPT/HCPCS: 36415; 83605

== ENCOUNTER 2025-04-05 18:41 | Outpatient (REF) | payer OTHER, SELFPAY ==
--- OUTSIDE RECORDS SUMMARY | 2025-03-23 08:45 | XMS_ITS | Encounter Summary ---
Author Organization [facility] Address [address] [place] [address] Care Team Providers Care Review Scheduling Coordinator Name Role Phone Gay De La Torre MD Unavailable [phone] Reason for Visit * AxkwdmUslgumns5zh po I&D of pilonidal cyst Encounter Details DateTypeDepartmentCare Team (Latest Contact Info)Gghemtkyfmi33/31/2025 9:45 AM EDTOffice Visit [facility] [address] [address] Terence Blum MD [address] [address] Pilonidal abscess (Primary Dx) Social History Tobacco UseTypesPacks/DayYears UsedDateSmoking Tobacco: Every UsfUglcrcvctk839.9 Started: 05/24/1995Smokeless Tobacco: Never Comments:Current smoker, carlos ryday, 11-20 cigarettes/day Alcohol UseStandard Drinks/WeekCommentsNever0 (1 standard drink = 0.6 oz pure alcohol)Caffeine intake : > 4 cups per dayCommentsNoSex and Gender InformationValueDate RecordedSex Assigned at BirthNot on fileLegal SexFemale 08/05/2022 7:18 PM EDTGender IdentityNot on fileSexual OrientationNot on file documented as of this encounter Last Filed Vital Signs Vital SignReadingTime TakenCommentsBlood Pressure--Pulse--Temperature-- Respiratory Rate--Oxygen Saturation--Inhaled Oxygen Concentration--Auzltl476 kg (291 lb)03/23/2025 10:09 AM LWSEokend342.2 cm (5' 7 )03/23/2025 10:09 AM EDTBody Mass Index45.5810 10:09 AM EDTdocumented in this encounter Progress Notes * Terence Pacheco MD - 03/23/2025 9:45 AM EDT Images from the original note were not included. Patient is status post incision and drainage of her pilonidal wound. She completed course of antibiotics. On examination, the pilonidal wound shows some pink granulation tissue. There is no erythema, induration or purulent drainage. 1. Pilonidal abscess The patient will continue with the dressing changes. She will follow up in about 2 weeks. The patient has a history of previous right breast abscess. She is going to see her promotion officer regarding this. If the patient does require surgical procedure for this, she can contact us. No evidence of infection from her pilonidal incision and drainage site. She does not require prolonged antibiotics for this. Next appointment: 04/09/2025 documented in this encounter Plan of Treatment DateTypeDepartmentCare Team (Latest Contact Info)Ywhsodawfmu71/17/2025 9:30 AM ESTOffice Visit [facility] 7[address] [facility] [address] [place] [id number] Terence Blum MD 703 [facility] [address] [place] [address] 06/21/2025 8:00 AM ESTOffice Visit [facility] [address] [place] [address] Kade Richardson MD 7519 [facility] [address] [id number] 07/25/2025 11:00 AM ESTOffice Visit [facility] [address] [place] [address] Cynthia English MD [address] [place] [address] documented as of this encounter Visit Diagnoses Diagnosis Pilonidal abscess- Primary Pilonidal cyst with abscess documented in this encounter Care Teams Team MemberRelationshipSpecialtyStart DateEnd Date Gay De La Torre MD [address] [place], [place] [phone] Referring PhysicianFamily Medicine07/18/24documented as of this encounter
--- OUTSIDE RECORDS SUMMARY | 2025-04-05 09:20 | XMS_ITS | Encounter Summary ---
Author Organization [facility] Address [address] [facility] [place] [address] Care Team Providers Care Rooms Director Name Role Phone Gay De La Torre MD Unavailable [phone] Reason for Visit * ReasonCommentsInfectionPt present today for breast infection Encounter Details DateTypeDepartmentCare Team (Latest Contact Info)Uztlradtksy82/13/2025 9:20 AM ESTOffice Visit [facility] [address] [place] [phone] Oly Plascencia PA [address] [place] [address] Discharge from left nipple; Discharge from right nipple Social History Tobacco UseTypesPacks/DayYears UsedDateSmoking Tobacco: Every WnaQvikrwvtcd093.9 Started: 05/24/1995Smokeless Tobacco: Never Comments:Current smoker, carlos ryday, 11-20 cigarettes/day Alcohol UseStandard Drinks/WeekCommentsNever0 (1 standard drink = 0.6 oz pure alcohol)Caffeine intake : > 4 cups per dayCommentsNoSex and Gender InformationValueDate RecordedSex Assigned at BirthNot on fileLegal SexFemale 08/05/2022 7:18 PM EDTGender IdentityNot on fileSexual OrientationNot on file documented as of this encounter Progress Notes * KELVIN Cabrera - 04/05/2025 9:20 AM EST Reason for Appointment: Patient ID: Ariadna Paniagua is a 44 y.o. female who presents for Infection (Pt present today for breast infection) Patient presents today for Breast infection MEDICATIONS Current Outpatient Medications Medication Instructions ??? acetaminophen (Tylenol) 325 MG tablet Every 4 hours ??? aspirin 81 mg, Daily ??? belimumab (BENLYSTA) 200 mg, Weekly ??? cephalexin (Keflex) 500 MG capsule ??? Chlorhexidine Gluconate (Hibiclens) 4 % solution Use every day in shower from the neck down to affected areas. ??? clindamycin (Cleocin T) 1 % lotion Apply thin later to affected areas on the thighs, once daily, 30 day supply ??? Clobetasol Propionate 0.05 % shampoo 1 application to the scalp in the shower topically 3-4 times a week ??? diclofenac sodium 1 % gel ??? ergocalciferol (VITAMIN D2) 50,000 Units, Weekly ??? fluocinonide (Lidex) 0.05 % external solution Apply to affected areas on the scalp, up to twicea day when flared, 30 day supply ??? fluticasone (Flonase) 50 MCG/ACT nasal spray 2 sprays, Each Nostril, 2 times daily, Shake gently. Before first use, prime pump. After use, clean tip and replace cap. ??? folic acid (FOLVITE) 1 mg, Daily RT ??? hydroxychloroquine (Plaquenil) 400 MG tablet Every 24 hours ??? ibuprofen 200 MG tablet Every 8 hours ??? immune globulin, human, (Gammagard) infusion Infuse into a venous catheter ??? KlonoPIN 0.5 MG tablet 1 tablet Orally Once a day prn for 30 days ??? metoprolol tartrate (LOPRESSOR) 100 mg, 2 times daily ??? norethindrone-ethinyl estradiol-iron (Lo Loestrin Fe) 1 MG-10 MCG / 10 MCG tablet 1 tablet, Daily RT ??? nystatin (Mycostatin) cream Apply to left armpit BID until clear ??? pantoprazole (PROTONIX) 20 mg, Daily before breakfast ??? predniSONE 10 mg, Every 24 hours ??? tacrolimus (Protopic) 0.1 % ointment Apply to affected area on forehead bid prn flares, hold ifclear ??? tretinoin (Retin-A) 0.025 % cream Apply to face, once daily at evening/night time, 30 day supply ??? tretinoin (Retin-A) 0.05 % cream Apply to face, once daily at evening/night time, 30 day supply ??? Triamcinolone Acetonide 0.025 % lotion 1 application ALLERGIES Allergies Allergen Reactions ??? Codeine Other Reaction(s): Other: See Comments, Trouble breathing ... Make her feel Jittery. OTHERWISE, NO SOB/WHEEZING, and NO DYSPHAGIA, NO URTICARIA, NO ANGIOEDEMA ??? Doxycycline Unknown ??? Omeprazole Other Other Reaction(s): Other ??? Pantoprazole Other Reaction(s): Other ??? Sulfamethoxazole Other Reaction(s): gi Other Reaction(s): lymph swelling ??? Trimethoprim Other Reaction(s): gi Other Reaction(s): lymph swelling ??? Clindamycin Other Reaction(s): Unknown Patient states it was a long time ago and she did not have a severe reaction. She does not believe she is allergic, she just thinks she just experienced side effects. Other Reaction(s): Unknown Reaction ??? Latex Rash Other Reaction(s): Rash Patient states it was a long time ago and she did not have a severe reaction. She does not believe she is allergic, she just thinks she just experienced side effects. ??? Sulfamethoxazole-Trimethoprim Swelling Other Reaction(s): Other, sick Patient states it was a long time ago and she did not have a severe reaction. She does not believe she is allergic, she just thinks she just experienced side effects. PROBLEMS Active Ambulatory Problems Diagnosis Date Noted ??? Autoimmune disease (HCC) 06/01/2023 ??? Fibromyalgia 06/01/2023 ??? Autonomic dysfunction 06/01/2023 ??? Dizziness 06/01/2023 ??? Tachycardia 06/01/2023 ??? Nonintractable episodic headache 06/01/2023 ??? CHRISTIAN positive 06/15/2022 ??? Anemia, unspecified 03/11/2022 ??? Anxiety 06/09/2023 ??? Ataxia 05/31/2014 ??? Bilateral leg weakness 03/05/2021 ??? Bilateral wrist pain 02/04/2023 ??? Cervical radiculopathy 07/06/2023 ??? Lumbosacral radiculopathy at L5 07/06/2023 ??? Chronic fatigue and malaise 06/10/2023 ??? Chronic laryngopharyngitis 07/06/2023 ??? Chronic pain of toes of both feet 03/05/2021 ??? Current smoker 07/06/2023 ??? Tobacco use disorder 07/06/2023 ??? 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 Depression, recurrent 06/09/2023 ??? Discoid lupus erythematosus 02/14/2022 ??? Disturbance of skin sensation 07/06/2023 ??? Elevated sed rate 03/05/2021 ??? High total serum IgM 03/05/2021 ??? Enthesopathy of hip region 07/06/2023 ??? Essential hypertension 06/09/2023 ??? Excessive and frequent menstruation with irregular cycle 09/24/2022 ??? Family history of Crohn's disease 03/05/2021 ??? Hair loss 03/05/2021 ??? Hyperlipidemia 05/31/2014 ??? nursing home current use of systemic steroids 02/04/2023 ??? Long-term use of high-risk medication 06/15/2022 ??? Long-term use of Plaquenil 03/05/2021 ??? LPRD (laryngopharyngeal reflux disease) 07/06/2023 ??? Megaloblastic anemia due to vitamin B12 deficiency 03/04/2022 ??? Myalgia 07/06/2023 ??? Obesity, Class III, BMI 40-49.9 (morbid obesity) ([facility]) 09/07/2022 ??? Obstructive sleep apnea syndrome 05/20/2022 ??? Oral lesion 07/06/2023 ??? Pain, hip 07/06/2023 ??? Rash and nonspecific skin eruption 03/05/2021 ??? 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 ??? Somnolence, daytime 05/20/2022 ??? Secondary osteoarthritis of multiple sites 03/05/2021 ??? 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 02/04/2023 ??? Swelling of lymph nodes 03/05/2021 ??? Vitamin D deficiency 03/06/2021 ??? Vitamin B12 deficiency 05/31/2014 ??? Pure hypercholesterolemia, unspecified 08/10/2023 ??? Hoarse 08/10/2023 ??? Thyroid nodule 08/10/2023 ??? Shortness of breath 07/13/2023 ??? Paroxysmal supraventricular tachycardia (HCC) 07/13/2023 ??? PAC (premature atrial contraction) 07/13/2023 ??? Degenerative disc disease, lumbar 11/08/2023 ??? Paresthesias 11/08/2023 ??? Nipple discharge 11/15/2023 ??? Irregular periods/menstrual cycles 11/15/2023 ??? Facet arthritis of lumbar region 12/15/2023 ??? Prediabetes 08/24/2023 ??? C. difficile diarrhea 03/07/2024 ??? Diarrhea 03/07/2024 ??? Duct ectasia of breast 03/07/2024 ??? Frequent infections 04/01/2024 ??? GERD (gastroesophageal reflux disease) 03/07/2024 ??? History of vitamin D deficiency 10/05/2023 ??? Hypogammaglobulinemia (HCC) 04/01/2024 ??? Insulin resistance 03/07/2024 ??? Lupus erythematosus 04/06/2024 ??? Sacroiliitis 04/06/2024 ??? Pilonidal abscess 02/28/2025 ??? Abdominal mass 03/14/2025 ??? Bloating 03/14/2025 ??? Constipation 03/14/2025 ??? Dyspepsia 03/14/2025 ??? Fatty liver 03/14/2025 ??? Leukocytosis 03/14/2025 ??? Nontoxic single thyroid nodule 03/14/2025 ??? Type 2 diabetes mellitus (HCC) 03/14/2025 Resolved Ambulatory Problems Diagnosis Date Noted ??? No Resolved Ambulatory Problems Past Medical History: Diagnosis Date ??? Cervical lymphadenopathy ??? COVID-19 vaccine administered ??? Difficulty walking ??? Fatigue ??? Fibromyalgia, primary ??? History of removal of cyst 2012 ??? HTN (hypertension) ??? Hx of abnormal cervical Pap smear ??? 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HCC) ??? Laryngopharyngeal reflux disease ??? Lupus ??? Nonscarring hair loss, unspecified ??? Nontoxic goiter, unspecified ??? Numbness ??? Oral thrush ??? Sleep apnea ??? Vitamin D deficiency, unspecified ??? Weakness of limb HISTORY PAST MEDICAL HISTORY SOCIAL HISTORY Past Medical History: Diagnosis Date ??? Anxiety ??? Cervical lymphadenopathy ??? Chronic laryngopharyngitis ??? COVID-19 vaccine administered x 2 (Mail[employer]) ??? Difficulty walking ??? Fatigue ??? Fibromyalgia, primary ??? GERD (gastroesophageal reflux disease) ??? History of removal of cyst 2013 tailbone x2 ??? HTN (hypertension) ??? Hx of abnormal cervical Pap smear ??? Hyperlipidemia ??? 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HCC) ??? Insulin resistance ??? Laryngopharyngeal reflux disease ??? Lupus ??? Nonscarring hair loss, unspecified ??? Nontoxic goiter, unspecified ??? Nontoxic single thyroid nodule ??? Numbness ??? Oral lesion ??? Oral thrush ??? Prediabetes ??? Sleep apnea ??? Tachycardia ??? Vitamin D deficiency, unspecified ??? Weakness of limb Social History Tobacco Use ??? Smoking status: Every Day Current packs/day: 1.00 Average packs/day: 1 pack/day for 29.9 years (29.9 ttl pk-yrs) Types: Cigarettes Start date: 05/24/1995 ??? Smokeless tobacco: Never ??? Tobacco comments: Current smoker, everyday, 11-20 cigarettes/day Vaping Use ??? Vaping status: Never Used Substance Use Topics ??? Alcohol use: Never Comment: Caffeine intake : > 4 cups per day ??? Drug use: Never FAMILY HISTORY Family History Problem Relation Name Age of Onset ??? Crohn's disease Mother Nieves ??? Thyroid disease Mother Nieves ??? Stomach cancer Father Micheal ??? Cancer Father Micheal ??? Pancreatitis Father Micheal ??? No Known Problems Sister 1 ??? No Known Problems Daughter ??? Lung disease Son ??? Diabetes Maternal Grandmother Clelaura ??? Heart failure Maternal Grandmother Clelaura ??? Rheum arthritis Maternal Grandmother Clelaura ??? Other (lung issue) Child 1 son with lung issue, 3 daughters SURGICAL HISTORY Past Surgical History: Procedure Laterality Date ??? CYST REMOVAL ??? DILATION AND CURETTAGE ??? INCISION AND DRAINAGE OF WOUND 03/02/2025 I&D of Pilonidal cyst ??? LYMPH NODE BIOPSY 2020 ??? OTHER SURGICAL HISTORY cervical cryo ??? VAGINAL DELIVERY REVIEW OF SYSTEMS Review of Systems: Review of Systems Constitutional: Negative. HENT: Negative. Eyes: Negative. Respiratory: Negative. Cardiovascular: Negative. Gastrointestinal: Negative. Genitourinary: Negative. Musculoskeletal: Negative. Skin: Negative. Bilateral nipple discharge green in color Neurological: Negative. All other systems reviewed and are negative. Hematological: Negative. Endocrine: Negative. Allergic/Immunologic: Negative. OBJECTIVE Objective: Physical Exam Constitutional: Appearance: Normal appearance. She is well-developed. Genitourinary: Vulva normal. Genitourinary Comments: Bilateral nipple discharge, culture to bilateral nipples Breasts: Breasts are soft. Cardiovascular: Rate and Rhythm: Normal rate and [...] nursing note reviewed. Exam conducted with a motorcycle builder present. Vitals: Estimated body mass index is 45.58 kg/m?? as calculated from the following: Height as of 03/23/25: 5' 7 . Weight as of 03/23/25: 291 lb. BP: No LMP recorded. Assessment/Plan ICD-10-CM 1. Breast infection N61.0 Assessment/Plan Patient presents with history of pilonidal cysts and recurrent breast discharge (with a history of pseudomonas). Patient is a recently diagnosed Type II DM currently on Trulicity. Bilateral breast cultures obtained today. Discussed if no improvement will discuss MRI of breast with and without contrast. Documented by Hazel Torres MA on behalf of: KELVIN Cabrera documented in this encounter Plan of Treatment DateTypeDepartmentCare Team (Latest Contact Info)Rugfxifvklb03/17/2025 9:30 AM ESTOffice Visit [facility] [address] [facility] [address] [place] [phone] Terence Blum MD [address] [facility] [address] [place] [address] 06/21/2025 8:00 AM ESTOffice Visit [facility] [address] [place] [address] Kade Richardson MD [address] [id number] 07/25/2025 11:00 AM ESTOffice Visit [facility] [address] [place] [address] Cynthia English MD [address] [place] [address] NameTypePriorityAssociated DiagnosesOrder ScheduleAerobic cultureMicrobiology Routine Discharge from left nipple Ordered: 04/05/2025naerobic cultureMicrobiologyRoutine Discharge from left nipple Ordered: 04/05/2025naerobic cultureMicrobiologyRoutine Discharge from right nipple Ordered: 04/05/2025erobic cultureMicrobiologyRoutine Discharge from right nipple Ordered: 04/05/2025documented as of this encounter Visit Diagnoses Diagnosis Discharge from left nipple Discharge from right nipple documented in this encounter Care Teams Team MemberRelationshipSpecialtyStart DateEnd Date Gay De La Torre MD [facility] [place] [address] Referring PhysicianFamily Medicine07/18/24documented as of this encounter
--- OUTSIDE RECORDS SUMMARY | 2025-04-05 14:00 | XMS_ITS | Encounter Summary ---
Author Organization [facility] Address [address] [place] [address] Care Team Providers Care Reserve Officer Name Role Phone Manuel Klein MD Unavailable [phone] Manuel Klein MD Primary Care Provider [phone] Manuel Klein MD Unavailable Source Comments In the event this information is protected by the Federal Confidentiality of Alcohol and Drug AbusePatient Records regulations: The Federal rules restrict any use of the information to criminally investigate or prosecute any alcohol or drug abuse patient.[facility] Reason for Visit * [place] Prior Authorization (Routine) - AuthorizedSpecialtyDiagnoses / ProceduresReferred By ContactReferred To Contact Diagnoses Other systemic lupus erythematosus with other organ involvement (HCC) Procedures BELIMUMAB INJECTION Sandra Park MD [address] [place] [address] Phone: tel: fax: Sandra Park MD [address] [place] [address] Phone: tel: fax: Referral IDStatusReasonStart DateExpiration DateVisits RequestedVisits [id number]/18/202510/[id number] Encounter Details DateTypeDepartmentCare Team (Latest Contact Info)Xvjqoqvbzez82/13/2025 2:00 PM ESTInfusion Center Hematology/Oncology [address] [place] [address] [place] [address] Other systemic lupus erythematosus with other organ involvement (HCC) (Primary Dx) Social History Tobacco UseTypesPacks/DayYears UsedDateSmoking Tobacco: Every PnqIjaqmvlxfi586 Smokeless Tobacco: NeverAlcohol UseStandard Drinks/WeekCommentsNo0 (1 standard drink = 0.6 oz pure alcohol)PHQ-2AnswerDate RecordedPHQ-2 lxbcx972rea Deprivation IndexAnswerDate RecordedNational Score (1-100), lower number is lower cbuo642309/24/2022State Score (1-10), lower number is lower pkqb388 Data from: https://www.neighborhoodatlas.[facility].edu/. Last address used for [address]CommentsNoSex and Gender InformationValueDate RecordedSex Assigned at BirthNot on fileLegal SexFemale 05/31/2014 2:51 PM ESTGender IdentityNot on fileSexual OrientationNot on file documented as of this encounter Last Filed Vital Signs Vital SignReadingTime TakenCommentsBlood Nepwmcii643/80106/05/2024 2:15 PM EST Yewht55599/13/2025 2:15 PM THJQhobgvleuob35.6 ??C (97.8 ??F)04/05/2025 2:15 PM ESTRespiratory Rtza868706/05/2024 2:15 PM ESTOxygen Lxrdpluunc79%04/05/2025 2:15 PM ESTInhaled Oxygen Concentration--Weight--Height--Body Mass Index--documented in this encounter Functional Status * Are you deaf or do you have serious difficulty hearing?AnswerDate of PzupzsoeasQfaagaIt68/04/2015 11:14 AM Chichi Stevens Ma * Are you blind or do you have serious difficulty seeing, even when wearing glasses?AnswerDate of PcznzdjcwcNxfvxkFt16/04/2015 11:14 AM Chichi Stevens Ma * Do you have serious difficulty walking or climbing stairs?AnswerDate of TfewqvsgmyBomjuuAag03/04/2015 11:14 AM Chichi Stevens Ma * Do you have difficulty dressing or bathing?AnswerDate of AssessmentAuthorYes 12/25/2014 11:14 AM Chichi Stevens Ma * Because of a physical, mental, or emotional condition, do you have difficulty doing errands alone such as visiting a doctor's office or shopping?AnswerDate of GxgwfjsvkoUwqxmsKe45/04/2015 11:14 AM Chichi Stevens Ma documented as of this encounter Mental Status * Because of a physical, mental, or emotional condition, do you have serious difficulty concentrating, remembering, or making decisions?AnswerEntry Date WihbklFx17/04/2015 11:14 AM Chichi Stevens Ma documented in this encounter Plan of Treatment DateTypeDepartmentCare Team (Latest Contact Info)Vmnludhpncr20/19/2025 9:00 AM [facility] Hematology/Oncology [address] [facility] [place] [address] GamunexC 35g Q 3 WEEKS05/02/2025 9:00 AM [facility] Hematology/Oncology [address] [place] [address] IVIG Q 3 WEEKS05/03/2025 2:00 PM [facility] Hematology/Oncology [address] [place] [address] BENLYSTA -05/07/2025 11:30 AM [facility] [address] [place] [address] Christie Phan MD [address] [place] [address] MYCHART ZOOM05/23/2025 9:00 AM [facility] Hematology/Oncology [address] [place] [address] IVIG Q 3 WEEKS06/13/2025 8:45 AM ESTOffice [facility] [address] [address] 12 week follow up IVIG06/13/2025 9:00 AM ESTVisit (SP) Office Hematology/Oncology [address] [address] Fara Lopez APRN.CONVERTER SUPERVISOR [address] [place] [address] 12 week follow up IVIG06/13/2025 9:30 AM ESTInfformerly [facility] Hematology/Oncology [address] [address] 12 week follow up IVIGdocumented as of this encounter Visit Diagnoses Diagnosis Other systemic lupus erythematosus with other organ involvement (HCC)- Primary documented in this encounter Administered Medications Medication OrderMAR ActionAction DateDoseRateSite acetaminophen 1,000 mg tab(s) (TYLENOL) 1,000 mg, ORAL, ONCE, 1 dose, On Delmi 04/05/25 at 1430 Indications:Other systemic lupus erythematosus with other organ involvement (HCC)Given04/05/2025 2:30 PM EST1,000 mg belimumab 1,280 mg in NaCl 0.9% 250 mL (BENLYSTA) 1,280 mg (rounded from 1,291 mg = 10 mg/kg/dose ?? 129.1 kg), INTRAVENOUS, at 250 mL/hr, Administerover 60 Minutes, ONCE, 1 dose, On Delmi 04/05/25 at 1430, Total Volume - EXP: 04/05/2025 2215 RT Protect From Light Indications:Other systemic lupus erythematosus with other organ involvement (HCC)New Bag/Syringe/Bynbjg1704/05/2025 2:45 PM EST1,280 mg250 mL/hr diphenhydrAMINE 25 mg tablet (BENADRYL) 25 mg, ORAL, ONCE, 1 dose, On Delmi 04/05/25 at 1430 Indications:Other systemic lupus erythematosus with other organ involvement (HCC)Given04/05/2025 2:30 PM EST25 mgdocumented in this encounter Care Teams Team MemberRelationshipSpecialtyStart DateEnd Manuel Klein MD PCP - GeneralFamily Gqheqqbj65/7/22 Manuel Klein MD ReferringFamily Medicine02/12/22 Manuel Klein MD [address] [place] [address] ReferringFamily Medicine07/06/24documented as of this encounter
--- OUTSIDE RECORDS SUMMARY | 2025-04-05 18:46 | XMS_ITS | Encounter Summary ---
Author Organization [facility] Address [address] [place] [address] Care Team Providers Care Chief Librarian Circulation Department Name Role Phone Manuel Klein MD Unavailable [phone] Manuel Klein MD Primary Care Provider +-[phone] Manuel Klein MD Unavailable [phone] Source Comments In the event this information is protected by the Federal Confidentiality of Alcohol and Drug AbusePatient Records regulations: The Federal rules restrict any use of the information to criminally investigate or prosecute any alcohol or drug abuse patient.[facility] Encounter Details DateTypeDepartmentCare Team (Latest Contact Info)Jsfkvxigpva74/12/2025Orders Only Hematology/Oncology [address] [place] [address] [place] [address] Jose Cho MD [address] [place] [address] [place] [address] Frequent infections (Primary Dx); Hypogammaglobulinemia (HCC); Bilateral leg weakness; Discoid lupus erythematosus Social History Tobacco UseTypesPacks/DayYears UsedDateSmoking Tobacco: Every McrQhljcgveiy909 Smokeless Tobacco: NeverAlcohol UseStandard Drinks/WeekCommentsNo0 (1 standard drink = 0.6 oz pure alcohol)PHQ-2AnswerDate RecordedPHQ-2 czcsp8384Area Deprivation IndexAnswerDate RecordedNational Score (1-100), lower number is lower xmrm874309/24/2022State Score (1-10), lower number is lower ajjd043 Data from: https://www.neighborhoodatlas.medicine.[facility]/. Last address used for skhnnzosrk[address]3CommentsNoSex and Gender InformationValueDate RecordedSex Assigned at BirthNot on fileLegal SexFemale 05/31/2014 2:51 PM ESTGender IdentityNot on fileSexual OrientationNot on file documented as of this encounter Functional Status * Are you deaf or do you have serious difficulty hearing?AnswerDate of WfeisnrmwrLvdmnfXt93/04/2015 11:14 AM Chichi Stevens Ma * Are you blind or do you have serious difficulty seeing, even when wearing glasses?AnswerDate of VaenwkbgetQapynjNo40/04/2015 11:14 AM Chichi Stevens Ma * Do you have serious difficulty walking or climbing stairs?AnswerDate of HpoujseorzTblkrjHgj90/04/2015 11:14 AM Chichi Stevens Ma * Do you have difficulty dressing or bathing?AnswerDate of AssessmentAuthorYes 12/25/2014 11:14 AM Chichi Stevens Ma * Because of a physical, mental, or emotional condition, do you have difficulty doing errands alone such as visiting a doctor's office or shopping?AnswerDate of MtofdklrbvTmecloAe27/04/2015 11:14 AM Chichi Stevens Ma documented as of this encounter Mental Status * Because of a physical, mental, or emotional condition, do you have serious difficulty concentrating, remembering, or making decisions?AnswerEntry Date WipfmzJy27/04/2015 11:14 AM Chichi Stevens Ma documented in this encounter Plan of Treatment DateTypeDepartmentCare Team (Latest Contact Info)Brklvvodynx98/19/2025 9:00 AM [facility] Hematology/Oncology [address] [place] [address] [place] [address] GamunexC 35g Q 3 WEEKS05/02/2025 9:00 AM [facility] Hematology/Oncology [address] [place] [address] IVIG Q 3 WEEKS05/03/2025 2:00 PM [facility] Hematology/Oncology [address] [place] [address] BENLYSTA -05/07/2025 11:30 AM [facility] [address] [place] [address] Christie Phan MD [address] [place] [address] MYCHART ZOOM05/23/2025 9:00 AM [facility] Hematology/Oncology [address] [place] [address] IVIG Q 3 WEEKS06/13/2025 8:45 AM ESTOffice Visit [facility] [address] [place] [address] 12 week follow up IVIG06/13/2025 9:00 AM ESTVisit (SP) Office Hematology/Oncology [address] [place] [address] Fara Lopez APRN.HORSE TRAINER [address] [place] [address] 12 week follow up IVIG06/13/2025 9:30 AM [facility] Hematology/Oncology [address] [place] [address] 12 week follow up IVIGdocumented as of this encounter Visit Diagnoses Diagnosis Frequent infections- Primary Hypogammaglobulinemia (HCC) Hypogammaglobulinaemia, unspecified Bilateral leg weakness Other musculoskeletal symptoms referable to limbs Discoid lupus erythematosus Lupus erythematosus documented in this encounter Care Teams Team MemberRelationshipSpecialtyStart DateEnd Date Manuel Klein MD PCP - GeneralFamily Zvnmjxut43/7/22 Manuel Klein MD ReferringFamily Medicine02/12/22 [place] [address] [place] [address] ReferringFamily Medicine07/06/24documented as of this encounter
--- OUTSIDE RECORDS SUMMARY | 2025-04-05 18:46 | XMS_ITS | Encounter Summary ---
Author Organization [facility] Address [address] [place] [address] Care Team Providers Care Cooker Meal Name Role Phone House, Charles Culver MD Primary Care Provider [phone] Gay De La Torre MD Unavailable [phone] Encounter Details DateTypeDetohatchi health care centermentCare Team (Latest Contact Info)Tiqgyszfpwr66/08/2024linisync Result Encounter [facility] External Department Unsolicited Zita Rogers, MATERIAL SCHEDULER [address] [facility] [address] [phone] Social History Tobacco UseTypesPacks/DayYears UsedDateSmoking Tobacco: Every WorGpbrbpzjco992.9 Started: 05/24/1995Smokeless Tobacco: Never Comments:Current smoker, carlos ryday, 11-20 cigarettes/day Alcohol UseStandard Drinks/WeekCommentsNever0 (1 standard drink = 0.6 oz pure alcohol)Caffeine intake : > 4 cups per dayCommentsUnknownSex and Gender InformationValueDate RecordedSex Assigned at BirthNot on fileLegal SexFemale 08/05/2022 7:18 PM EDTGender IdentityNot on fileSexual OrientationNot on file documented as of this encounter Plan of Treatment DateTypeDepartmentCare Team (Latest Contact Info)Jvbhevufaat68/17/2025 9:30 AM ESTOffice Visit [facility] [address] [phone] Terence Blum MD [address] [address] 06/21/2025 8:00 AM ESTOffice Visit [facility] [address] [place] [address] Kade Richardson MD 8658 [facility] [address] [place] [address] 07/25/2025 11:00 AM ESTOffice Visit [facility] [address] [place] [address] Cynthia English MD [address] [place] [address] documented as of this encounter Procedures Procedure NamePriorityDate/TimeAssociated DiagnosisCommentsXR LUMBAR SPINE MIN 4V09/29/2023 7:22 AM EDT documented in this encounter Results * XR LUMBAR SPINE MIN 4V (09/29/2023 7:22 AM EDT)Anatomical RegionLaterality ModalityOtherSpecimen (Source)Anatomical Location / LateralityCollection Method / VolumeCollection TimeReceived Time09/29/2023 7:22 AM EDT Narrative 09/29/2023 7:25 AM EDT [facility] ?[address] ? [place] [address] ?XRay Report ? Signed ? Patient: JONES PANIAGUA ?MR#: [id number] ?? : 1980 ?Acct:[id number] ?? Age/Sex: 42 / F ?ADM Date: 09/28/23 ?? Loc: RAD ? Attending Dr: ZITA ROGERS ? Ordering Physician: ZITA ROGERS ?? Date of Service: 09/28/23 ?? Procedure(s): XR lumbar spine min 4V ?? Accession Number(s): [id number] ? cc: GAY DE LA TORRE ; ZITA ROGERS ? [facility] ? [address] ? [place] [address] ? Patient Name: ?? JONES PANIAGUA ? MRN: [facility]:[id number] ? date: 1980 ?Sex: F ?? Assigned Patient Location: RAD ?? Current Patient Location: ? Accession/Order Number: [id number] ?? Exam Date: 09/28/2023 ??14:41 ?Report Date: 09/29/2023 ??07:22 ? At the request of: ?? ZITA ??KEN ? Procedure: ??XR lumbar spine min 4V ? EXAMINATION: XR thoracic spine 3V, XR lumbar spine min 4V ? HISTORY: bilateral leg weakness R29.898, muscle spasm M62.838 ? COMPARISON: No relevant comparison available. ? FINDINGS: ?? BONES: Normal alignment with no acute fracture or spondylolisthesis. Minimal ?? dextrocurvature centered at L2-L3. Minimal degenerative spondylosis mild facet ? osteoarthropathy most significant at L5-S1 ?? DISC SPACES: Normal. No significant disc height narrowing, subluxation, or ?? endplate abnormality. ?? PARASPINOUS: Negative. No paraspinous abnormality is seen. ?? OTHER: Negative. ? XR/XR lumbar spine min 4V ?? IMPRESSION: ? Minimal dextrocurvature ? Minimal degenerative change most significant at L5-S1 ? Electronically authenticated by: AURORA ??NEEL ?? Date: 09/29/2023 ??07:22 ? Dictated By: ?Aurora Shaikh M.D. ? Signed By: ?09/29/23724 ? DD/ 1 ? TD/TT: ? Medicine And Health Service Manager: Procedure Note Radiology, Radiologist, - 09/29/[address] [address] XRay Report Signed Patient: JONES PANIAGUA BMR#: [id number] : 1980Acct:[id number] Age/Sex: 42 / FADM Date: 09/28/23 Loc: RAD Attending Dr: ZITA ROGERS Ordering Physician: ZITA ROGERS Date of Service: 09/28/23 Procedure(s): XR lumbar spine min 4V Accession Number(s): [id number] cc: GAY DE LA TORRE ; ZITA ROGERS The [address] [address] Patient Name: OJNES PANIAGUA MRN: [id number] date: 1980 Sex: F Assigned Patient Location: RAD Current Patient Location: Accession/Order Number: [id number] Exam Date: 09/28/2023 14:41 Report Date: 09/29/2023 [...] Shaikh M.D. Signed By:09/29/23724 DD/ 1 TD/TT: Medicine And Health Service Manager: Authorizing ProviderResult TypeResult StatusJacdionna Rogers NPCLINISYNC IMAGINGFinal Result documented in this encounter Visit Diagnoses Not on filedocumented in this encounter Care Teams Team MemberRelationshipSpecialtyStart DateEnd Date Charles Nicole MD PCP - GeneralFamily Medicine Gay De La Torre MD [address] [place] [address] Referring PhysicianFamily Medicine07/18/24documented as of this encounter
--- OUTSIDE RECORDS SUMMARY | 2025-04-05 18:46 | XMS_ITS | Clinical Summary ---
Author Organization [facility] Address [address] [place] [address] Care Team Providers Care Comic Book Designer Name Role Phone Gay De La Torre CNP Primary Care Provider [phone] Allergies Active AllergyReactionsCriticalityNoted SrumZbnmwigvAbeemgqahbTijmz89/16/2024 HifbznpbkeebMazmp10/16/6369GhekonatciywnburJpewo57/08/2015 Other Reaction(s): gi Other Reaction(s): lymph swelling CAUSED ENLARGED LYMPH NODES Sulfamethoxazole-TrimethoprimOther,GI intolerance,MxkzxrnsQso91/03/2016 Patient states it was a long time [...] auto-injector Inject 200mg (1 pen) subcutaneously once vvuzhq6002/04/2023ctive Active Problems ProblemNoted DateDiagnosed CioqChppzfqh53/15/2024uct ectasia of breast 03/07/2024GERD (gastroesophageal reflux disease)03/07/2024Insulin resistance 03/07/2024Lumbosacral rrpmuosvehd89/15/2024bdominal jwaljdbk39/15/2024. difficile nppguels16/15/2024Facet arthritis of lumbar mdvgas8912/15/2023ischarge from tkxbhi7511/15/2023Irregular periods/menstrual igatbc2311/15/2023egenerative disc disease, tcrfdx2111/08/2023History of vitamin D ogezwmjyit89/14/2024Hoarse 08/10/2023ure hypercholesterolemia, /19/2024Thyroid nodule 08/10/2023AC (premature atrial contraction)07/13/2023aroxysmal supraventricular fbtgwaxkzsd18/20/2024Shortness of zhttvv5307/13/2023ervical cakgtjgipbvrm84/13/2024hronic arwoavhndhlbbsqobt92/13/2024urrent smoker 07/06/2023 Overview (03/07/2024): Added secondary to documentation in Social History. Added secondary to documentation in Social History. Cytomegalovirus layxptqzx58/13/2024isturbance of skin eaxxnbyst96/13/2024 Enthesopathy of hip ujhjkc5407/06/2023LPRD (laryngopharyngeal reflux disease) 07/06/2023Lumbosacral radiculopathy at L507/06/20235301Xtvlvup66/13/2024Oral lesion 07/06/2023ain, hip07/06/2023hronic fatigue and oxuklcd8906/10/2023nxiety 06/09/20231447Qxjhykfle47/17/2024epression, phnkiwdnj08/17/2024Essential hybjbfhrpbpk03/17/2024utonomic iocqbxyvufv60/09/0462Bllyplkgx41/09/2024 Vbkburagedl79/09/2024ilateral wrist pain02/04/2023Long term current use of systemic illfwmlr68/14/2023Raynaud's disease without ybbjnbvs94/14/2023Steroid- induced fqaebhqnpnul56/14/2023Excessive and frequent menstruation with irregular cycle09/24/2022Obesity, Class III, BMI 40-49.9 (morbid obesity)09/07/2022NA leapmnkc33/23/2023Long-term use of high-risk azxojbwzpm82/23/2023Obstructive sleep apnea dkorfhdx90/28/2022omnolence, qdzzukj8705/20/2022nemia, unspecified 03/11/2022Megaloblastic anemia due to vitamin B12 ynkfhyxuat75/12/2022iscoid lupus wztpkagjickig20/24/2022Vitamin D mdcmzvpriy55/14/2021ilateral leg ydrnnxwm04/13/2021hronic pain of toes of both feet03/05/2021levated sed rate 03/05/2021Family history of Crohn's epzvwui9003/05/2021Hair loss03/05/2021ong- term use of Ataqqmthj15/13/2021Rash and nonspecific skin hpzwvagp14/13/2021 Secondary osteoarthritis of multiple sites03/05/2021welling of lymph nodes 03/05/20218537Zncnnt42/08/2015Chronic bilateral low back pain with bilateral kbzkwruz76/08/8378Sdhvjkrexwuofy68/08/2015Vitamin B12 vhuljxrcct38/08/2015 Family History Medical HistoryRelationNameCommentsHeart attackMaternal GrandfatherHeart failure [...] InformationValueDate RecordedSex Assigned at BirthNot on fileLegal MlzKweskz17/30/2022 8:07 PM ESTGender IdentityNot on fileSexual OrientationNot on file Last Filed Vital Signs Vital SignReadingTime TakenCommentsBlood Oegmknit794/8210/ 10:12 AM EDT Ndlua629803/08/2024 10:12 AM EDTTemperature--Respiratory Rate--Oxygen Saturation 98%03/08/2024 10:00 AM EDTInhaled Oxygen Concentration--Fdkjfd497 kg (275 lb) 03/08/2024 10:00 AM IOTPbagml422.2 cm (5' 7 )03/08/2024 10:00 AM EDTBody Mass Index43.0703/08/2024 10:00 AM EDT Plan of Treatment Health MaintenanceDue DateLast DoneCommentsDepression Wllkmgvbo91/14/1993 Varicella Vaccines (1 of 2 - 13+ 2-dose series)1993Hepatitis B Vaccines (1 of 3 - 19+ 3-dose series)10/05/1999Pneumococcal Vaccine: Pediatrics (0 to 5 Years) and At-Risk Patients (6 to 64 Years) (1 of 2 - PCV)10/05/1999Adult Wiiyqda6310/04/2002HPV Vaccines (1 - 3-dose SCDM series)10/05/2007HPV/Cotest 2010Cervical Cancer Howwehsqy97/12/2011Pap Smear Taahocitm16/14/2021OVID-19 Vaccine ( season)51, 02/08/2022, 05/26/2021, Additional history existsInfluenza Vaccine (#1) [...] MemberRelationshipSpecialtyStart DateEnd Gay De La Torre CNP [facility] [facility], [address] [place], [place] [phone] PCP - GeneralFamily Lpdyegeb92/9/24
--- OUTSIDE RECORDS SUMMARY | 2025-04-05 18:46 | XMS_ITS | Encounter Summary ---
Author Organization [facility] Address [address] [place] [address] Care Team Providers Care Cage/Vault Supervisor Name Role Phone Manuel Klein MD Unavailable [phone] Manuel Klein MD Primary Care Provider [phone] Manuel Klein MD Unavailable [phone] Source Comments In the event this information is protected by the Federal Confidentiality of Alcohol and Drug AbusePatient Records regulations: The Federal rules restrict any use of the information to criminally investigate or prosecute any alcohol or drug abuse patient.[facility] Encounter Details DateTypeDepartmentCare Team (Latest Contact Info)Olxidrftlvi70/13/2025 Patient Msg Rheumatology [address] [place], [place] [phone] Sandra Park MD [address] [place] [address] Appointment Request Social History Tobacco UseTypesPacks/DayYears UsedDateSmoking Tobacco: Every TxjFavxaewodf773 Smokeless Tobacco: NeverAlcohol UseStandard Drinks/WeekCommentsNo0 (1 standard drink = 0.6 oz pure alcohol)PHQ-2AnswerDate RecordedPHQ-2 tdbiw6474Area Deprivation IndexAnswerDate RecordedNational Score (1-100), lower number is lower muva026009/24/2022State Score (1-10), lower number is lower gjpt327 Data from: https://www.neighborhoodatlas.[facility]/. Last address used for [address]3CommentsNoSex and Gender InformationValueDate RecordedSex Assigned at BirthNot on fileLegal SexFemale 05/31/2014 2:51 PM ESTGender IdentityNot on fileSexual OrientationNot on file documented as of this encounter Functional Status * Are you deaf or do you have serious difficulty hearing?AnswerDate of XehuqnvpadDsanqyJo11/04/2015 11:14 AM Chichi Stevens Ma * Are you blind or do you have serious difficulty seeing, even when wearing glasses?AnswerDate of IsleitknkgEhfkjqGe18/04/2015 11:14 AM Chichi Stevens Ma * Do you have serious difficulty walking or climbing stairs?AnswerDate of HsnelpvyuvChigmtBcc58/04/2015 11:14 AM Chichi Stevens Ma * Do you have difficulty dressing or bathing?AnswerDate of AssessmentAuthorYes 12/25/2014 11:14 AM Chichi Stevens Ma * Because of a physical, mental, or emotional condition, do you have difficulty doing errands alone such as visiting a doctor's office or shopping?AnswerDate of AgfetuhwigKmplazOb19/04/2015 11:14 AM Chichi Stevens Ma documented as of this encounter Mental Status * Because of a physical, mental, or emotional condition, do you have serious difficulty concentrating, remembering, or making decisions?AnswerEntry Date CkyylwUr90/04/2015 11:14 AM Chichi Stevens Ma documented in this encounter Plan of Treatment DateTypeDepartmentCare Team (Latest Contact Info)Hjijhiznmrc55/19/2025 9:00 AM [facility] [address] [place] [address] [place] [address] GamunexC 35g Q 3 WEEKS05/02/2025 9:00 AM [facility] Hematology/Oncology [address] [place] [address] IVIG Q 3 WEEKS05/03/2025 2:00 PM [facility] Hematology/Oncology [address] [place] [address] BENLYSTA -05/07/2025 11:30 AM [facility] [address] [place] [address] Christie Phan MD [address] [place] [address] MYCHART ZOOM05/23/2025 9:00 AM [facility] Hematology/Oncology [address] [place] [address] IVIG Q 3 WEEKS06/13/2025 8:45 AM ESTOffice Visit [facility] [address] [place] [address] 12 week follow up IVIG06/13/2025 9:00 AM ESTVisit (SP) Office Hematology/Oncology [address] [place] [address] Fara Lopez APRN.INTEL ANALYST [address] [place] [address] 12 week follow up IVIG06/13/2025 9:30 AM [facility] Hematology/Oncology [address] [place] [address] 12 week follow up IVIGdocumented as of this encounter Visit Diagnoses Not on filedocumented in this encounter Care Teams Team MemberRelationshipSpecialtyStart DateEnd Date Manuel Klein MD PCP - GeneralFamily Svixsxlj67/7/22 Manuel Klein MD ReferringFamily Medicine02/12/22 Manuel Klein MD [address] [place] [address] ReferringFamily Medicine07/06/24documented as of this encounter
--- OUTSIDE RECORDS SUMMARY | 2025-04-05 18:46 | XMS_ITS | Encounter Summary ---
Author Organization [facility] Address [address] [place] [address] Care Team Providers Care Rolling Chair Pusher Name Role Phone House, Charles Culver MD Primary Care Provider [phone] Gay De La Torre MD Unavailable [phone] Encounter Details DateTypeDefour corners regional health centermentCare Team (Latest Contact Info)Rlibldhkuld46/08/2024linisync Result Encounter [facility] External Department Unsolicited Zita Rogers, SAFETY BELT INSTALLER [address] [facility] [address] [phone] Social History Tobacco UseTypesPacks/DayYears UsedDateSmoking Tobacco: Every MpiHknwkusdcf153.9 Started: 05/24/1995Smokeless Tobacco: Never Comments:Current smoker, carlos ryday, 11-20 cigarettes/day Alcohol UseStandard Drinks/WeekCommentsNever0 (1 standard drink = 0.6 oz pure alcohol)Caffeine intake : > 4 cups per dayCommentsUnknownSex and Gender InformationValueDate RecordedSex Assigned at BirthNot on fileLegal SexFemale 08/05/2022 7:18 PM EDTGender IdentityNot on fileSexual OrientationNot on file documented as of this encounter Plan of Treatment DateTypeDepartmentCare Team (Latest Contact Info)Dsscjaqziqi07/17/2025 9:30 AM ESTOffice Visit [facility] [address] [phone] Terence Blum MD [address] [address] 06/21/2025 8:00 AM ESTOffice Visit [facility] [address] [place] [address] Kade Richardson MD 49[address] [facility] [address] [place] [address] 07/25/2025 11:00 AM ESTOffice Visit [facility] [address] [place] [address] Cynthia English MD [address] [place] [address] documented as of this encounter Procedures Procedure NamePriorityDate/TimeAssociated DiagnosisCommentsXR THORACIC SPINE 3V 09/29/2023 7:22 AM EDT documented in this encounter Results * XR THORACIC SPINE 3V (09/29/2023 7:22 AM EDT)Anatomical RegionLaterality ModalityOtherSpecimen (Source)Anatomical Location / LateralityCollection Method / VolumeCollection TimeReceived Time09/29/2023 7:22 AM EDT Narrative 09/29/2023 7:25 AM EDT [facility] ?[address] ? [place] [address] ?XRay Report ? Signed ? Patient: JONES PANIAGUA ?MR#: [id number] ?? : 1980 ?Acct:[id number] ?? Age/Sex: 42 / F ?ADM Date: 09/28/23 ?? Loc: RAD ? Attending Dr: ZITA ROGERS ? Ordering Physician: ZITA ROGERS ?? Date of Service: 09/28/23 ?? Procedure(s): XR thoracic spine 3V ?? Accession Number(s): [id number] ? cc: GAY DE LA TORRE ; ZITA ROGERS ? [facility] ? [address] ? [place] [address] ? Patient Name: ?? JONES PANIAGUA ? MRN: [id number] ? date: 1980 ?Sex: F ?? Assigned Patient Location: RAD ?? Current Patient Location: ? Accession/Order Number: [id number] ?? Exam Date: 09/28/2023 ??14:43 ?Report Date: 09/29/2023 ??07:22 ? At the request of: ?? ZITA ??KEN ? Procedure: ??XR thoracic spine 3V ? EXAMINATION: XR thoracic spine 3V, XR [...] is seen. ?? OTHER: Negative. ? XR/XR thoracic spine 3V ?? IMPRESSION: ? Minimal dextrocurvature ? Minimal degenerative change most significant at L5-S1 ? Electronically authenticated by: AURORA ??NEEL ?? Date: 09/29/2023 ??07:22 ? Dictated By: ?Aurora Shaikh M.D. ? Signed By: ?09/29/23724 ? DD/ 1 ? TD/TT: ? Snow Shoveler: Procedure Note Radiology, Radiologist, MD - 09/29/[address] [address] XRay Report Signed Patient: JONES PANIAGUA BMR#: [id number] : 1980Acct:[id number] Age/Sex: 42 / FADM Date: 09/28/23 Loc: RAD Attending Dr: ZITA ROGERS Ordering Physician: ZITA ROGERS Date of Service: 09/28/23 Procedure(s): XR thoracic spine 3V Accession Number(s): [id number] cc: GAY DE LA TORRE ; ZITA ROGERS The [address] [address] Patient Name: JONES PANIAGUA MRN: [id number] date: 1980 Sex: F Assigned Patient Location: RAD Current Patient Location: Accession/Order Number: [id number] Exam Date: 09/28/2023 14:43 Report Date: 09/29/2023 [...] Shaikh M.D. Signed By:09/29/23724 DD/ 1 TD/TT: Snow Shoveler: Authorizing ProviderResult TypeResult StatusJacdionna Rogers NPCLINISYNC IMAGINGFinal Result documented in this encounter Visit Diagnoses Not on filedocumented in this encounter Care Teams Team MemberRelationshipSpecialtyStart DateEnd Date Charles Nicole MD PCP - GeneralFamily Medicine Gay De La Torre MD [address] [place], [place] [phone] Referring PhysicianFamily Medicine07/18/24documented as of this encounter
--- OUTSIDE RECORDS SUMMARY | 2025-04-05 18:46 | XMS_ITS | Encounter Summary ---
Author Organization [facility] Address [address] [place] [address] Care Team Providers Care Residential Fee Appraiser Name Role Phone Manuel Klein MD Unavailable [phone] Manuel Klein MD Primary Care Provider +-[phone] Manuel Klein MD Unavailable [phone] Source Comments In the event this information is protected by the Federal Confidentiality of Alcohol and Drug AbusePatient Records regulations: The Federal rules restrict any use of the information to criminally investigate or prosecute any alcohol or drug abuse patient.[facility] Encounter Details DateTypeDepartmentCare Team (Latest Contact Info)Psdgjidaubr27/04/2025 Patient Msg Rheumatology [address] [place], [place] [id number] Sandra Park MD [address] [place] [address] Appointment Request Social History Tobacco UseTypesPacks/DayYears UsedDateSmoking Tobacco: Every TrkTqmccatenb866 Smokeless Tobacco: NeverAlcohol UseStandard Drinks/WeekCommentsNo0 (1 standard drink = 0.6 oz pure alcohol)PHQ-2AnswerDate RecordedPHQ-2 gsftq6994Area Deprivation IndexAnswerDate RecordedNational Score (1-100), lower number is lower dhuk158209/24/2022State Score (1-10), lower number is lower riht094 Data from: https://www.neighborhoodatlas.[facility]/. Last address used for gakexuevec[address] [place] [address]3CommentsNoSex and Gender InformationValueDate RecordedSex Assigned at BirthNot on fileLegal SexFemale 05/31/2014 2:51 PM ESTGender IdentityNot on fileSexual OrientationNot on file documented as of this encounter Functional Status * Are you deaf or do you have serious difficulty hearing?AnswerDate of NjktmzizzhNigmlwOd99/04/2015 11:14 AM Chichi Stevens Ma * Are you blind or do you have serious difficulty seeing, even when wearing glasses?AnswerDate of SriygeivjmJfvctgMi40/04/2015 11:14 AM Chichi Stevens Ma * Do you have serious difficulty walking or climbing stairs?AnswerDate of XpuzhwpfksRwmusdBza03/04/2015 11:14 AM Chichi Stevens Ma * Do you have difficulty dressing or bathing?AnswerDate of AssessmentAuthorYes 12/25/2014 11:14 AM Chichi Stevens Ma * Because of a physical, mental, or emotional condition, do you have difficulty doing errands alone such as visiting a doctor's office or shopping?AnswerDate of RirxmgckplTbzxwtKw59/04/2015 11:14 AM Chichi Stevens Ma documented as of this encounter Mental Status * Because of a physical, mental, or emotional condition, do you have serious difficulty concentrating, remembering, or making decisions?AnswerEntry Date CrpupzTb82/04/2015 11:14 AM Chichi Stevens Ma documented in this encounter Plan of Treatment DateTypeDepartmentCare Team (Latest Contact Info)Zfwaguzctnt43/19/2025 9:00 AM [facility] [address] [place] [address] [place] [address] GamunexC 35g Q 3 WEEKS05/02/2025 9:00 AM [facility] Hematology/Oncology [address] [place] [address] IVIG Q 3 WEEKS05/03/2025 2:00 PM [facility] Hematology/Oncology [address] [place] [address] BENLYSTA -05/07/2025 11:30 AM [facility] [address] [place] [address] Christie Phan MD [address] [place] [address] MYCHART ZOOM05/23/2025 9:00 AM [facility] Hematology/Oncology [address] [place] [address] IVIG Q 3 WEEKS06/13/2025 8:45 AM ESTOffice Visit [facility] [address] [place] [address] 12 week follow up IVIG06/13/2025 9:00 AM ESTVisit (SP) Office Hematology/Oncology [address] [place] [address] Fara Lopez APRN.PATIENT SCHEDULING MANAGER [address] [place] [address] 12 week follow up IVIG06/13/2025 9:30 AM [facility] Hematology/Oncology [address] [place] [address] 12 week follow up IVIGdocumented as of this encounter Visit Diagnoses Not on filedocumented in this encounter Care Teams Team MemberRelationshipSpecialtyStart DateEnd Date Manuel Klein MD PCP - GeneralFamily Olcxyrbf85/7/22 Manuel Klein MD ReferringFamily Medicine02/12/22 Manuel Klein MD [address] [place] [address] ReferringFamily Medicine07/06/24documented as of this encounter
--- OUTSIDE RECORDS SUMMARY | 2025-04-05 18:46 | XMS_ITS | Encounter Summary ---
Author Organization [facility] Address [address] [place] [address] Care Team Providers Care Assistant Activities Director Name Role Phone Manuel Klein MD Unavailable [phone] Manuel Klein MD Primary Care Provider [phone] Manuel Klein MD Unavailable [phone] Source Comments In the event this information is protected by the Federal Confidentiality of Alcohol and Drug AbusePatient Records regulations: The Federal rules restrict any use of the information to criminally investigate or prosecute any alcohol or drug abuse patient.[facility] Encounter Details DateTypeDepartmentCare Team (Latest Contact Info)Fpmicvedowl15/12/2025Orders Only Hematology/Oncology [address] [place] [address] Fara Lopez APRN.CAUSTICS LOADER [address] [place] [address] Frequent infections (Primary Dx); Hypogammaglobulinemia (HCC); Bilateral leg weakness; Discoid lupus erythematosus Social History Tobacco UseTypesPacks/DayYears UsedDateSmoking Tobacco: Every IwkZfjjbjdfeo820 Smokeless Tobacco: NeverAlcohol UseStandard Drinks/WeekCommentsNo0 (1 standard drink = 0.6 oz pure alcohol)PHQ-2AnswerDate RecordedPHQ-2 ipqjk6564Area Deprivation IndexAnswerDate RecordedNational Score (1-100), lower number is lower epof854809/24/2022State Score (1-10), lower number is lower tzwp416 Data from: https://www.neighborhoodatlas.medicine.[facility]/. Last address used for ufqnxsdfaun[address]3CommentsNoSex and Gender InformationValueDate RecordedSex Assigned at BirthNot on fileLegal SexFemale 05/31/2014 2:51 PM ESTGender IdentityNot on fileSexual OrientationNot on file documented as of this encounter Functional Status * Are you deaf or do you have serious difficulty hearing?AnswerDate of XvhnuutexzCichmyAj21/04/2015 11:14 AM Chichi Stevens Ma * Are you blind or do you have serious difficulty seeing, even when wearing glasses?AnswerDate of CswtsztkcpHhxfxoMg87/04/2015 11:14 AM Chichi Stevens Ma * Do you have serious difficulty walking or climbing stairs?AnswerDate of MbixlxntblMoghewCtt74/04/2015 11:14 AM Chichi Stevens Ma * Do you have difficulty dressing or bathing?AnswerDate of AssessmentAuthorYes 12/25/2014 11:14 AM Chichi Stevens Ma * Because of a physical, mental, or emotional condition, do you have difficulty doing errands alone such as visiting a doctor's office or shopping?AnswerDate of HbrqfmipwkOddhfcXf12/04/2015 11:14 AM Chichi Stevens Ma documented as of this encounter Mental Status * Because of a physical, mental, or emotional condition, do you have serious difficulty concentrating, remembering, or making decisions?AnswerEntry Date KwvjxeCl15/04/2015 11:14 AM Chichi Stevens Ma documented in this encounter Plan of Treatment DateTypeDepartmentCare Team (Latest Contact Info)Ekyoytwksxk54/19/2025 9:00 AM [facility] Hematology/Oncology [address] [place] [address] [place] [address] GamunexC 35g Q 3 WEEKS05/02/2025 9:00 AM [facility] Hematology/Oncology [address] [facility] [place] [address] IVIG Q 3 WEEKS05/03/2025 2:00 PM [facility] Hematology/Oncology [address] [facility] [place] [address] BENLYSTA -05/07/2025 11:30 AM [facility] [address] [place] [address] Christie Phan MD [address] [place] [address] MYCHART ZOOM05/23/2025 9:00 AM [facility] Hematology/Oncology [address] [facility] [place] [address] IVIG Q 3 WEEKS06/13/2025 8:45 AM ESTOffice Visit [facility] [address] [place] [address] 12 week follow up IVIG06/13/2025 9:00 AM ESTVisit (SP) Office Hematology/Oncology [address] [facility] [place] [address] Fara Lopez APRN.CAUSTICS LOADER [address] [facility] [place] [address] 12 week follow up IVIG06/13/2025 9:30 AM [facility] Hematology/Oncology [address] [facility] [place] [address] 12 week follow up IVIGdocumented as of this encounter Visit Diagnoses Diagnosis Frequent infections- Primary Hypogammaglobulinemia (HCC) Hypogammaglobulinaemia, unspecified Bilateral leg weakness Other musculoskeletal symptoms referable to limbs Discoid lupus erythematosus Lupus erythematosus documented in this encounter Care Teams Team MemberRelationshipSpecialtyStart DateEnd Date Manuel Klein MD PCP - GeneralFamily Mbiurfeo99/7/22 Manuel Klein MD ReferringFamily Medicine02/12/22 Manuel Klein MD [address] [place] [address] ReferringFamily Medicine07/06/24documented as of this encounter
--- OUTSIDE RECORDS SUMMARY | 2025-04-05 18:46 | XMS_ITS | Encounter Summary ---
Author Organization [facility] Address [address] [facility] [place] [address] Care Team Providers Care Coater Name Role Phone House, Charles Culver MD Primary Care Provider Gay De La Torre MD Unavailable [phone] Encounter Details DateTypeDemethodist behavioral hospitalCare Team (Latest Contact Info)Scbpkccrzlc69/27/2024linisync Result Encounter [facility] Unsolicited Katy Valdivia, DO [address] [facility] [address], [place] [id number] Social History Tobacco UseTypesPacks/DayYears UsedDateSmoking Tobacco: Every FnvMblynuduyo110.9 Started: 05/24/1995Smokeless Tobacco: Never Comments:Current smoker, carlos ryday, 11-20 cigarettes/day Alcohol UseStandard Drinks/WeekCommentsNever0 (1 standard drink = 0.6 oz pure alcohol)Caffeine intake : > 4 cups per dayCommentsUnknownSex and Gender InformationValueDate RecordedSex Assigned at BirthNot on fileLegal SexFemale 08/05/2022 7:18 PM EDTGender IdentityNot on fileSexual OrientationNot on file documented as of this encounter Plan of Treatment DateTypeDemethodist behavioral hospitalCare Team (Latest Contact Info)Exddgxwldyf08/17/2025 9:30 AM ESTOffice Visit [facility] [address] [facility] [address] [place] [address] Terence Blum MD [address] [facility] [address] [place] [address] 06/21/2025 8:00 AM ESTOffice Visit [facility] [place] [facility] [address] [place] [address] Kade Richardson MD [address] [facility] [address] [address] 07/25/2025 11:00 AM ESTOffice Visit [facility] [address] [place] [address] Cynthia English MD [address] [place], [place] [address] documented as of this encounter Procedures Procedure NamePriorityDate/TimeAssociated DiagnosisCommentsUS PELVIS W/ LZHUQZQBHNSS48/27/2024 4:39 PM EDT [facility] ZAAQXKLJJAhrvfuf08/27/2024 3:04 PM EDT ALL LUTEINIZING CTAVJQUVoxuxqd80/27/2024 3:04 PM EDT ALL FOLLICLE STIMULATING UVKOSLDJduorzy92/27/2024 3:04 PM EDT ALL DHEA HMQYFJZOnxlbcw59/27/2024 3:04 PM EDT ALL ZOWEIQPUWNPXDYRHSLHMMBStbwbtg31/27/2024 3:04 PM EDT documented in this encounter Results * US PELVIS W/ TRANSVAGINAL (11/18/2023 4:39 PM EDT)Anatomical RegionLaterality ModalityOtherSpecimen (Source)Anatomical Location / LateralityCollection Method / VolumeCollection TimeReceived Time11/18/2023 4:39 PM EDT Narrative 11/18/2023 4:42 PM EDT [facility] ?[address] ? [place] [address] ? Ultrasound Report ? Signed ? Patient: PRINNIER,JONES B ?MR#: [id number] ?? : 1980 ?Acct:[id number] ?? Age/Sex: 43 / F ?ADM Date: 06/27/24 ?? Loc: US ? Attending Dr: Katy Valdivia D.O. ? Ordering Physician: Katy Valdivia D.O. ?? Date of Service: 11/18/23 ?? Procedure(s): US pelvis w/ transvaginal ?? Accession Number(s): [id number] ? cc: GAY DE LA TORRE ; Katy Valdivia D.O. ? [facility] ? [address] ? [place] [address] ? Patient Name: ?? JONES PANIAGUA ? MRN: [facility]:[id number] ? date: 1980 ?Sex: F ?? Assigned Patient Location: ?? Current Patient Location: [place] ?? Accession/Order Number: [id number] ?? Exam Date: 11/18/2023 ??14:00 ?Report Date: 11/18/2023 ??16:39 ? At the request of: ?? KATY ??SKIP ? Procedure: ??US pelvis w/ transvaginal ? EXAMINATION: US pelvis w/ transvaginal ? HISTORY: IRREGULAR PERIODS/MENSTRUAL CYCLES ? COMPARISON: No relevant comparison available. ? FINDINGS: ? Transabdominal and transvaginal images ? The uterus is normal in size and contour measuring 8.6 x 4.7 x 6.6 cm. ?? Identified in the posterior myometrium is a focal 1.5 x 1.3 x 2 cm ?? heterogeneous mass with calcifications ? The endometrium measures 11 mm, normal. ? The right ovary is normal measuring 3.1 x 1.8 x 1.9 cm. Normal color Doppler ?? flow ? The left ovary is normal measuring 2.8 x 2.7 x 2.0 cm. Normal color Doppler ?? flow ? No ascites ? US/US pelvis w/ transvaginal ?? IMPRESSION: ? 2 cm posterior myometrial mass, a fibroid is favored ? Electronically authenticated by: AURORA ??WEST ?? Date: 11/18/2023 ??16:39 ? Dictated By: ?Aurora Shaikh M.D. ? Signed By: ?11/18/23 1642 ? DD/ 1639 ? TD/TT: ? Special Education Preschool Teacher: Procedure Note Radiology, Radiologist, MD - 11/18/[address] [address] Ultrasound Report Signed Patient: JONES PANIAGUA BMR#: [id number] : 1980Acct:[id number] Age/Sex: 43 / FADM Date: 11/18/23 Loc: US Attending Dr: Katy Valdivia D.O. Ordering Physician: Katy Valdivia D.O. Date of Service: 11/18/23 Procedure(s): US pelvis w/ transvaginal Accession Number(s): [id number] cc: GAY DE LA TORRE ; Katy Valdivia D.O. [place] [address] Patient Name: JONES PANIAGUA MRN: [facility]:[id number] date: 1980 Sex: F Assigned Patient Location: US Current Patient Location: US Accession/Order Number: [id number] Exam Date: 11/18/2023 14:00 Report Date: 11/18/2023 [...] Dictated By: Aurora Shaikh M.D. Signed By:11/18/23 4774 DD/ 647 TD/TT: Special Education Preschool Teacher: Authorizing ProviderResult TypeResult StatusCorey Skip DOCLINISYNC IMAGINGFinal Result * (ABNORMAL) ALL DEHYDROEPIANDROSTERONE (11/18/2023 3:04 PM EDT)ComponentValue Ref RangeTest MethodAnalysis TimePerformed AtPathologist SignatureDHEA, SERUM 25(A)31 - 701 ng/dLTBHComment: This test was developed and its performance characteristics determined by [facility]. It has not been cleared or approved by the Food and Drug Administration. Performed at: ?? - Lab[address] ??[id number] Contact Acid Plant Operator: Senait Hardin MD, Phone: ??[phone] Specimen (Source)Anatomical Location / LateralityCollection Method / Volume Collection TimeReceived Time11/18/2023 3:04 PM EDT11/18/2023 3:14 PM EDT Narrative CLINISYNC - 11/23/2023 12:10 PM EDT Authorizing ProviderResult TypeResult StatusCorey Skip DOCLINISYNCFinal Result Performing OrganizationAddressCity/State/ZIP CodePhone Number CLINISYNC [facility] * (ABNORMAL) [facility] PROLACTIN (11/18/2023 3:04 PM EDT)ComponentValueRef RangeTest MethodAnalysis TimePerformed AtPathologist SignaturePROLACTIN4.7(A)4.8 - 33.4 ng/mLTBHComment: Performed at: ??[facility] Lab[address] ??[id number] Contact Acid Plant Operator: Doyle Mendenhall PhD, Phone: ??[phone] Specimen (Source)Anatomical Location / LateralityCollection Method / Volume Collection TimeReceived Time11/18/2023 3:04 PM EDT11/18/2023 3:14 PM EDT Narrative CLINISYNC - 11/19/2023 4:07 AM EDT Authorizing ProviderResult TypeResult StatusCorey Skip DOCLINISYNCFinal Result Performing OrganizationAddressCity/State/ZIP CodePhone Number CLINIS[facility]NC [facility] * ALL FOLLICLE STIMULATING HORMONE (11/18/2023 3:04 PM EDT)ComponentValueRef RangeTest MethodAnalysis TimePerformed AtPathologist QabcoiukwLHH65.0. mIU/mL TBHComment: ? Adult Female ? Range ?Follicular phase ?3.5 - ??12.5 ?Ovulation phase ? 4.7 - ??21.5 ?Luteal phase ?1.7 - ?? 7.7 ?Postmenopausal ? 25.8 - 134.8 Specimen (Source)Anatomical Location / LateralityCollection Method / Volume Collection TimeReceived Time11/18/2023 3:04 PM EDT11/18/2023 3:14 PM EDT Narrative CLINISYNC - 11/19/2023 4:07 AM EDT Authorizing ProviderResult TypeResult StatusCorey Skip DOCLINISYNCFinal Result Performing OrganizationAddressCity/State/ZIP CodePhone Number CLINIS[facility]NC [facility] * ALL LUTEINIZING HORMONE (11/18/2023 3:04 PM EDT)ComponentValueRef RangeTest MethodAnalysis TimePerformed AtPathologist SignatureLUTEINIZING HORMONE(LH) 24.9. mIU/mLTBHComment: ? Adult Female ?Range ?Follicular phase ?2.4 - ??12.6 ?Ovulation phase ?14.0 - ??95.6 ?Luteal phase ?1.0 - ??11.4 ?Postmenopausal ?7.7 - ??58.5 Specimen (Source)Anatomical Location / LateralityCollection Method / Volume Collection TimeReceived Time11/18/2023 3:04 PM EDT11/18/2023 3:14 PM EDT Narrative CLINISYNC - 11/19/2023 4:07 AM EDT Authorizing ProviderResult TypeResult StatusCorey Skip DOCLINISYNCFinal Result Performing OrganizationAddressCity/State/ZIP CodePhone Number CLINISYNC [facility] * (ABNORMAL) ALL DHEA SULFATE (11/18/2023 3:04 PM EDT)ComponentValueRef Range Test MethodAnalysis TimePerformed AtPathologist SignatureDHEA-DKEGKIO53.4(A) 57.3 - 279.2 ug/dLTBHSpecimen (Source)Anatomical Location / Laterality Collection Method / VolumeCollection TimeReceived Time11/18/2023 3:04 PM EDT 11/18/2023 3:14 PM EDT Narrative CLINISYNC - 11/19/2023 4:07 AM EDT Authorizing ProviderResult TypeResult StatusCorey Skip DOCLINISYNCFinal Result Performing OrganizationAddressCity/State/ZIP CodePhone Number [facility]EN [facility] documented in this encounter Visit Diagnoses Not on filedocumented in this encounter Care Teams Team MemberRelationshipSpecialtyStart DateEnd Charles Nicole MD PCP - GeneralFamily Medicine/ Gay De La Torre MD [address] [place], [place] [address] Referring PhysicianFamily Medicine07/18/24documented as of this encounter
--- OUTSIDE RECORDS SUMMARY | 2025-04-05 18:46 | XMS_ITS | Clinical Summary ---
Author Organization [facility] Address [address] [place] [address] Phone Care Team Providers Care Affiliate Manager Name Role Phone Mitali, Michelle [place] ALARM OPERATOR-GASOLINE ENGINE INSPECTOR Unavailable [phone] Kenneth Patel MD Unavailable [phone] Gay De La Torre ALARM OPERATOR-GASOLINE ENGINE INSPECTOR Primary Care Provider Allergies Active AllergyReactionsCriticalityNoted DateCommentsDoxycyclineOther,UnknownLow 01/19/2022 Patient states it was a long time ago and she did not have a severe reaction. She does not believe she is allergic, she just thinks she just experienced side effects. Sulfamethoxazole-TrimethoprimSwelling,QmihyMvc77/03/2016 Patient states it was a long time [...] a week10/23/2022ctive ergocalciferol (Vitamin D-2) 1.25 MG (75192 UT) capsule Take 1 capsule (50,000 Units) [...] tablet /ctive Active Problems ProblemNoted DateDiagnosed DateCurrent oipvqr8107/13/2023aroxysmal supraventricular awcqqbdsdfo59/20/2024Shortness of apccqq2507/13/2023AC (premature atrial contraction)07/13/20235298Muddzcg94/17/2024epression, recurrent 06/09/20232220Pbpeuipmx17/17/2024Essential xphakxjfgpaz79/17/2024utonomic izgejmjzcpe75/09/2024Obesity, Class III, BMI 40-49.9 (morbid obesity)09/07/2022 Obstructive sleep apnea ocadrecm55/28/2022nemia, ddiisyurhqp66/19/2022iscoid lupus yijvubgtizoye58/24/2022Vitamin D /14/2021hronic bilateral low back pain with bilateral /08/8401Teqjiexxcrdqdq63/08/2015Vitamin B12 jexrscgfep19/08/2015 Resolved Problems ProblemNoted DateDiagnosed DateResolved OyhkMpmltyscjtt87/09/202403/09/2024 Family History Medical HistoryRelationNameCommentsNo Known ProblemsBrotherCancerFatherCrohn's diseaseMotherHeart diseaseSisterRelationNameStatusCommentsBrotherFatherMother Sister Social History Tobacco UseTypesPacks/DayYears UsedDateSmoking Tobacco: Every DayCigarettes Smokeless Tobacco: Never Tobacco Cessation:Ready to Q uit: No; Counseling Given: Yes Alcohol UseStandard Drinks/WeekCommentsNever0 (1 standard drink = 0.6 oz pure alcohol)CommentsUnknownSex and Gender InformationValueDate RecordedSex Assigned at BirthNot on fileLegal TpqXwbeae09/25/2022 9:42 PM ESTGender Identity Gxgmig3702/21/2024 7:13 PM EDTSexual OrientationNot on file Last Filed Vital Signs Vital SignReadingTime TakenCommentsBlood Gxfhvmiv908/6003 3:06 PM EST Nuclm049707/26/2024 3:06 PM ESTTemperature--Respiratory Rate--Oxygen Saturation-- Inhaled Oxygen Concentration--Jgpnqb429 kg (286 lb 12.8 oz)07/26/2024 3:06 PM SYATkdbec595.2 cm (5' 7 )07/26/2024 3:06 PM ESTBody Mass Index44.9207/26/2024 3:06 PM EST Plan of Treatment DateTypeDepartmentCare Team (Latest Contact Info)Zwlescgglxy79/05/2026 11:[address] [facility] [address] [facility] [address] [place] [address] Lois Arguelles MD [address] [facility] [address] [place] [address] Health MaintenanceDue DateLast DoneCommentsHIV Fclnqthya06/14/1981Lipid Panel 1980MMR Vaccines (1 of 1 - Standard series)1981Hepatitis C Screening 1998Hepatitis B Vaccines (1 of 3 - 19+ 3-dose series)10/05/1999 Pneumococcal Vaccine: Pediatrics and At-Risk Adult Patients (1 of 2 - PCV) 10/05/1999Zoster Vaccines (1 of 2)10/05/1999HPV/Crxiwu7810/04/2001DTaP/Tdap/Td Vaccines (1 - Tdap)2002HPV Vaccines (1 - Risk 3-dose Standard series) 10/05/2007Diabetes Hyfzxqxpa722COVID-19 Vaccine (3 - Pfizer risk series)/07/2022, 02/08/2022Influenza Vaccine (#1)2024 Fjefyduml84/14/151559/Yearly Adult Qyjkdrbc39/15/656633/5Cervical Cancer Fasfymywb66/14/2028Pap Smear801/, 05/04/2008HIB Vaccines Aged OutNo longer eligible [...] complete this topic Procedures Procedure NamePriorityDate/TimeAssociated DiagnosisCommentsCONVERTED TRADE ANALYST PZHCNWAFDhbsmtz03/12/2008 12:00 AM EST from Last 3 Months or Most Recently Relevant to Health Maintenance Results * CONVERTED TRADE ANALYST CYTOLOGY (05/04/2008 12:00 AM EST)ComponentValueRef RangeTest MethodAnalysis [...] findings. ? - Signed by: JESSICA ORTIZ [facility] ?05/09/08 Electronically Signed Out By [facility], Cytology/ By the signature on [...] Specimen A: Unknown Part Type [facility] Department of Pathology [address] COPATHCONVERTED FINAL DIAGNOSISSatisfactory for evaluation. Transformation [...] findings. ? - Signed by: JESSICA ORTIZ [facility] ?05/09/08 [facility] COPATHCONVERTED CLINICAL DIAGNOSIS-HISTORY- HISTORY & [...] ORTIZ ? SOUT ?05/09/08 1524 ??ANGELMEANTORIE ?- [place] Conversion Report - [facility] COPATHCONVERTED FINAL REPORT PDF LINK TO COPY AND PASTE \copathshare\copath\PDF \[id number].pdfBR[facility] COPATHSpecimen (Source) Anatomical Location / LateralityCollection Method / VolumeCollection Time Received TimeUnrecognized Part Type 11:28 AM EST Narrative Authorizing ProviderResult TypeResult StatusCopath ConversionLAB CYTOLOGY ORDERABLESFinal ResultPerforming OrganizationAddressCity/State/ZIP CodePhone Number [facility] COPATH [address] [place] [address] from Last 3 Months or Most Recently Relevant to Health Maintenance Insurance MemberSubscriberPlan / Payer (Effective 2017-Present)Name:Ariadna Paniagua Relation to Subscriber:SelfName:Ariadna arias Payer ID:[id number] (NAIC) Group ID:[id number] Type:Not on file Address: [address] [place] [id number] Care Teams Team MemberRelationshipSpecialtyStart DateEnd Date Gay De La Torre, ALARM OPERATOR-GASOLINE ENGINE INSPECTOR [address] [place] [address] PCP - General07/13/23 Michelle Jasmine, ALARM OPERATOR-GASOLINE ENGINE INSPECTOR Nurse PractitionerCardiology06/08/23 Kenneth Patel MD Consulting PhysicianCardiology06/23/23
--- OUTSIDE RECORDS SUMMARY | 2025-04-05 18:46 | XMS_ITS | Encounter Summary ---
Author Organization [facility] Address [facility] [place] [address] Care Team Providers Care Environmental Lead Name Role Phone Manuel Klein MD Unavailable [phone] Manuel Klein MD Primary Care Provider +-4 Manuel Klein MD Unavailable [phone] Source Comments In the event this information is protected by the Federal Confidentiality of Alcohol and Drug AbusePatient Records regulations: The Federal rules restrict any use of the information to criminally investigate or prosecute any alcohol or drug abuse patient.[facility] Encounter Details DateTypeDepartmentCare Team (Latest Contact Info)Mauaegimunh94/04/2025 Patient Msg Integrated Medicine [address] [place] [address] Christie Phan MD [address], [place] [address] Appointment Request Social History Tobacco UseTypesPacks/DayYears UsedDateSmoking Tobacco: Every KmlQiyswuwnhg664 Smokeless Tobacco: NeverAlcohol UseStandard Drinks/WeekCommentsNo0 (1 standard drink = 0.6 oz pure alcohol)PHQ-2AnswerDate RecordedPHQ-2 idruy2774Area Deprivation IndexAnswerDate RecordedNational Score (1-100), lower number is lower yonm885909/24/2022State Score (1-10), lower number is lower xvth048 Data from: https://www.neighborhoodatlas.medicine.[facility]/. Last address used for fr[address]oical[address]3CommentsNoSex and Gender InformationValueDate RecordedSex Assigned at BirthNot on fileLegal SexFemale 05/31/2014 2:51 PM ESTGender IdentityNot on fileSexual OrientationNot on file documented as of this encounter Functional Status * Are you deaf or do you have serious difficulty hearing?AnswerDate of PlbonmktthZshfjfVm46/04/2015 11:14 AM Chichi Stevens Ma * Are you blind or do you have serious difficulty seeing, even when wearing glasses?AnswerDate of AnfiwztpbtXderegVp29/04/2015 11:14 AM Chichi Stevens Ma * Do you have serious difficulty walking or climbing stairs?AnswerDate of CoanvibgxwJxeoanUxk37/04/2015 11:14 AM Chichi Stevens Ma * Do you have difficulty dressing or bathing?AnswerDate of AssessmentAuthorYes 12/25/2014 11:14 AM Chichi Stevens Ma * Because of a physical, mental, or emotional condition, do you have difficulty doing errands alone such as visiting a doctor's office or shopping?AnswerDate of LzewlcqvtnWimdasQr27/04/2015 11:14 AM Chichi Stevens Ma documented as of this encounter Mental Status * Because of a physical, mental, or emotional condition, do you have serious difficulty concentrating, remembering, or making decisions?AnswerEntry Date AzeifuSy21/04/2015 11:14 AM Chichi Stevens Ma documented in this encounter Plan of Treatment DateTypeDepartmentCare Team (Latest Contact Info)Dqqtiieiops45/19/2025 9:00 AM ESTInfusion Center Hematology/Oncology [address] [place] [address] [place] [address] GamunexC 35g Q 3 WEEKS05/02/2025 9:00 AM ESTInfusion Center Hematology/Oncology [address] [place] [address] IVIG Q 3 WEEKS05/03/2025 2:00 PM [facility]ematology[facility]On[facility] [address] [place] [address] BENLYSTA -05/07/2025 11:30 AM [facility] [address] [place] [address] Christie Phan MD [address] [place] [address] MYCHART ZOOM05/23/2025 9:00 AM [facility] Hematology/Oncology [address] [place] [address] IVIG Q 3 WEEKS06/13/2025 8:45 AM ESTOffice Visit [facility] [address] [place] [address] 12 week follow up IVIG06/13/2025 9:00 AM ESTVisit (SP) Office Hematology/Oncology [address] [place] [address] Fara Lopez APRN.CHAIRMAN CEO [address] [place] [address] 12 week follow up IVIG06/13/2025 9:30 AM [facility] Hematology/Oncology [address] [place] [address] 12 week follow up IVIGdocumented as of this encounter Visit Diagnoses Not on filedocumented in this encounter Care Teams Team MemberRelationshipSpecialtyStart DateEnd Date Manuel Klein MD PCP - GeneralFamily Tuiqgump45/7/22 Manuel Klein MD ReferringFamily Medicine02/12/22 Manuel Klein MD [address] [place] [address] ReferringFamily Medicine07/06/24documented as of this encounter
--- OUTSIDE RECORDS SUMMARY | 2025-04-05 18:46 | XMS_ITS | Clinical Summary ---
Author Organization [facility] Address [address] [place] [address] Care Team Providers Care Director Underwriter Sales Name Role Phone Gay De La Torre Lucinda [facility] Primary Care Provider [phone] Allergies Active AllergyReactionsCriticalityNoted BgbyZojdnjrgWbvamausunqWdh90/12/2022 Other Reaction(s): Unknown Patient states it was [...] she just experienced side effects. CodeineShortness of RwbelwRahv32/22/2025 Other Reaction(s): jittery Nsbrpfbnvkr13/17/2023 Other Reaction(s): Unknown LklkqXwcgUht51/08/2015 Other Reaction(s): Rash Patient states it was [...] just thinks she just experienced side effects. Fhpflxfpnt93/16/2024 Other Reaction(s): Other Zbxixrehbbnp61/16/2024 Other Reaction(s): Other Sulfa NgwtgwemmhsInkyeyzc76/22/2025Sulfamethoxazole-TrimethoprimDyspepsia, WnwyxbvuNoa78/17/2021 Patient states it was a long time ago and she did not have a severe reaction. She does not believe she is allergic, she just thinks she just experienced side effects. Plynhoychznr42/22/2025 Other Reaction(s): unknown Medications MedicationSigDispense QuantityRefillsLast FilledStart [...] capsule by mouth daily.02/22/2025tive Ergocalciferol 1.25 MG (07597 UT) capsule Take 1 capsule by mouth [...] Take 1 tablet by mouth daily.11/17/2024tive Nystatin 788449 UNIT/ML oral suspension Swish and spit 4 [...] route once.11/23/2024tive Active Problems ProblemNoted DateDiagnosed DateFatty liver03/14/20251523Fmplwkheqduz52/22/2025 Nontoxic single thyroid mlwbgi0003/14/2025Type 2 diabetes axxqftby65/22/2025 Pilonidal iajcach7002/28/20254984Vtfjmzjsqfdhtxrqrynic76/09/2024. difficile diarrhea 03/07/20248982Kedrvphn52/15/2024uct ectasia of vugbwi8903/07/2024Gastroesophageal reflux fqrahav7103/07/2024Insulin rpuqeltmsn36/15/2024Facet arthritis of lumbar krjmsl4312/15/2023ischarge from wwuafb8811/15/2023Irregular periods/menstrual lrxdwf9211/15/20233139Zmmmrfixsycw75/17/2024Lumbosacral sixrnswddoo13/17/2024 Zmrcsvzwlmx39/02/7580Aryrue46/19/2024ure gxtwbtojlltixqwbgfcs63/19/2024Thyroid ixucks8608/10/2023AC (premature atrial contraction)07/13/2023aroxysmal supraventricular itoqsjfwhiq88/20/2024Shortness of flxkpu0807/13/2023ervical uxkiaxwcudzxo33/13/2024hronic qqwckpnkpucfnbrulo39/13/2024Tobacco use disorder 07/06/2023 Overview (03/14/2025): Added secondary to documentation in Social History. Added secondary to documentation in Social History. Cytomegalovirus /13/2024isturbance of skin qwyigdwcs10/13/2024 Enthesopathy of hip tovdgh9007/06/2023LPRD (laryngopharyngeal reflux disease) 07/06/2023Lumbosacral radiculopathy at L507/06/20234509Ftpqqbu40/13/2024Oral lesion 07/06/2023ain, hip07/06/2023hronic fatigue kkmdfdyh11/18/2697Azzmkcg77/17/2024 Depression, jqxuzkqkd60/17/2024Essential /17/2024utonomic tunyrfddnmx92/09/2024Nonintractable episodic pcafxhgd45/09/2024izziness 06/01/20238448Izteabzivpd12/09/2024ilateral wrist pain02/04/2023Raynaud's disease 02/04/2023Steroid-induced gghsrlvronrb31/14/2023Excessive and frequent menstruation with irregular cycle09/24/20229830Nwsuiva11/17/2023NA positive 06/15/2022Sleep apnea05/20/2022omnolence, arrbpxz5905/20/2022nemia, unspecified 03/11/2022Megaloblastic anemia due to vitamin B12 zrhynnrpnu55/12/2022iscoid lupus edkpvngkuspys70/24/3262Kazluebxvyov40/03/2022ystemic lupus erythematosus 10/24/2021heumatoid yngbnnboi04/05/2022Vitamin D umzxdcmkpj70/14/2021ilateral leg hrgfgdom62/13/2021hronic pain of toes of both feet03/05/2021High total serum IgM03/05/2021Hair loss03/05/2021ash and nonspecific skin eruption 03/05/2021econdary osteoarthritis of multiple sites03/05/2021welling of lymph nodes03/05/2021ilateral uzbzakcxroei28/22/2617Kjvzmr49/08/2015Chronic pain tkhubdve64/08/8573Pdnylxsfjozhtp42/08/2015Vitamin B12 uspmwldrpf34/08/2015 Encounters DateTypeDepartmentCare HtbxQjjhenjhyrp78/27/2025Telephone [facility] Infectious Disease [address] [place] [address] Stacy Boyer Lkbfyvw7503/14/2025 12:00 PM EDTOffice Visit [facility] [address] [place], [place] [address] Colleen Hamilton MD Nipple discharge in female (Primary Dx); Type 2 diabetes mellitus with other specified complication, unspecified whether usp insulin use; Obesity with serious comorbidity in pediatric patient, unspecified obesity class, unspecified obesity type; IgG deficiency; Recurrent infections; Pilonidal abscess; Tobacco use disorderfrom Last 3 Months Social History Tobacco UseTypesPacks/DayYears UsedDateSmoking Tobacco: Every DayCigarettes Smokeless Tobacco: Never Tobacco Cessation:Ready to Q uit: No; Counseling Given: No CommentsNoSex and Gender InformationValueDate RecordedSex Assigned at BirthNot on fileLegal IlnQjndly99/04/2024 9:51 AM ESTGender IdentityNot on file Sexual OrientationNot on file Last Filed Vital Signs Vital SignReadingTime TakenCommentsBlood Yudnaibu252/8203/14/2025 11:52 AM EDT Xcvnr383703/14/2025 11:52 AM UGIHbemidvqocd68 ??C (98.6 ??F)03/14/2025 11:52 AM EDTRespiratory Izgk2072 11:52 AM EDTOxygen Ohvfibigtg23%03/14/2025 11:52 AM EDTInhaled Oxygen Concentration--Oeiacw342.8 kg (290 lb 9.6 oz)03/14/2025 11:52 AM EDTHeight--Body Mass Index-- Plan of Treatment Health MaintenanceDue DateLast DoneCommentsHEPATITIS C VIRUS EQMOMYBCW72/14/1981 UYOZHDG48 1980HIV SCREENING UFJSGMMSBO57/14/1996HEP B VACCINE (1 of 3 - 19+ 3-dose series)10/05/1999PNEUMOCOCCAL VACCINE SERIES (1 of 2 - PCV)10/05/1999TDAP (ADULT)10/05/1999ZOSTER (SHINGLES) VACCINE (1 of 2)10/05/1999CERVICAL CANCER SCREENING YDVDHIVMMR31/14/2002HPV VACCINE (1 - 3-dose SCDM series)10/05/2007 LIPID NFUSSSXHG97/14/2021MAMMOGRAM SCREENING ILRBGBUPRN09/14/2021OVID-19 VACCINE ( season)51, 02/08/2022, 05/26/2021, Additional history existsINFLUENZA VACCINE (#1)01/22/2025 Procedures Procedure NamePriorityDate/TimeAssociated DiagnosisCommentsCULTURE WOUNDToday 03/14/2025 1:00 PM EDT Nipple discharge in female CULTURE PKGVLNtkrr68/22/2025 1:00 PM EDT Nipple discharge in female REFERRAL (OUTSIDE)Bskewzo0303/08/2025 2:11 PM EDTfrom Last 3 Months Results * CULTURE WOUND (03/14/2025 1:00 PM EDT) Only the most recent of2 resultswithin the time period is included. ComponentValueRef RangeTest MethodAnalysis TimePerformed AtPathologist Signature SPECIMEN DESCRIPTIONWOUNDDOCTORS HOSPITAL - [address] - BUCYRUSCOMMENTLEFT NIPPLE DISCHARGEBUMOUNT ST. [facility] - [address] - BUCYRUSGRAM STAINNO[address]Comment: WBC'S SEEN NO ORGANISMS SEEN RESULT-CULTNO GROWTH [address]Comment:Testing performed at [place] [address] Report Rvzbnb4703/16/[address] Comment:FINALSpecimen (Source)Anatomical Location / LateralityCollection Method / VolumeCollection TimeReceived TimeWoundSPECIMEN COLLECTION BY DRAINAGE / Wqonwcu5803/14/2025 1:00 PM EDT1 1:18 PM EDT Narrative Authorizing ProviderResult TypeResult StatusNancy F Alfonso MDMICROBIOLOGY - GENERAL ORDERABLESFinal ResultPerforming OrganizationAddressCity/State/ZIP Code Phone Number [facility] - [address] [place] [id number] [facility] - [address] - [address]US [address] [place] [address] * REFERRAL (OUTSIDE) (03/08/2025 2:11 PM EDT) Narrative Authorizing ProviderResult TypeResult StatusHistorical ProviderOSU OUTPATIENT REFERRALSFinal Result from Last 3 Months Insurance Care Teams Team MemberRelationshipSpecialtyStart DateEnd Date Gay De La Torre, TRUE [address] [place] [address] PCP - GeneralNurse Practitioner - Kiroou10/4/24
--- OUTSIDE RECORDS SUMMARY | 2025-04-05 18:46 | XMS_ITS | Clinical Summary ---
Author Organization [employer] Address [id number] [place] [address] Care Team Providers Care Mender Hand Name Role Phone Unavailable Primary Care Provider Unavailabl e Allergies Active AllergyReactionsCriticalityNoted AunaTnbcwgbgXrtqejzfvizAcg99/12/2022 Other Reaction(s): Unknown, Unknown Reaction Other Reaction(s): [...] just thinks she just experienced side effects. Pknoloc2205/31/2014 Other Reaction(s): jittmayra, Other: See Comments, Trouble [...] as needed.Active Active Problems ProblemNoted DateDiagnosed DateLupus qeamymtvefsdo04/14/2024Sacroiliitis 04/06/2024hronic pain ivhhkjms48/14/2024aynaud's disease without gangrene 04/06/2024 Assessment & Plan (04/06/2024 10:10 AM EST): We will get lower extremity PVR with cold immersion test. I counseled her on the diagnosis and identifying and avoiding provoking factors. I also counseled her that managing her SLE and autoimmune connective tissue disorders is balderrama for managing her Raynaud's. All her questions were answered. Degenerative disc disease, ncatfj6711/08/2023urrent kfngjv1107/06/2023 Overview (04/06/2024): Added secondary to documentation in Social History. Added secondary to documentation in Social History. Cytomegalovirus huycdjxfj67/13/2024hronic fatigue and zzdpqif53/ Jrhfuukid06/17/1815Zrfrcks41/17/2024utonomic eltnmudyeow11/09/2024utoimmune xprjtfp3806/01/2023Systemic lupus qwziqllapbgry17/03/7901Myybkikebpdb01/03/2022 Rheumatoid tkuhiolsm52/05/2022ilateral leg iwbmqwhn00/13/2021 Social History Tobacco UseTypesPacks/DayYears UsedDateSmoking Tobacco: Every DayCigarettes Smokeless Tobacco: Never Tobacco Cessation:Ready to Q uit: Not Asked; Counseling Given: Not Answered ChildcareAnswerDate RkahjdtyFogziqongTreicbm69/12/2019EmploymentAnswerDate UfawcrdwTwpygdgmpxQnmabqz38/12/2019Hunger ScreeningAnswerDate RecordedWithin the past 12 months we worried whether our food would run out before we got money to buy more.Never True04/06/2024Within the past 12 months the food we bought just didn't last and we didn't have money to get more.Never True04/06/2024 CommentsUnknownSex and Gender InformationValueDate RecordedSex Assigned at Not on fileLegal NmgUthixg78/09/2017 3:06 PM ESTGender IdentityNot on fileSexual OrientationNot on file Last Filed Vital Signs Vital SignReadingTime TakenCommentsBlood Stigvlqb472/80106/06/2023 10:00 AM EST Thgit218604/06/2024 10:00 AM IHYHbqhisjbdcy68.1 ??C (97 ??F)04/06/2024 10:00 AM ESTRespiratory Rate--Oxygen Llyvtbionr01%04/06/2024 10:00 AM ESTInhaled Oxygen Concentration--Cngosd624.7 kg (275 lb)04/06/2024 10:00 AM QBHYlpmsq319.2 cm (5' 7 )04/06/2024 10:00 AM ESTBody Mass Index43.0704/06/2024 10:00 AM EST Plan of Treatment Health MaintenanceDue DateLast DoneCommentsTobacco Iqnvopvmcp64/14/1981 Depression Mfaxriqjz15/14/1993Adult BMI Follow Up Plan1998DTaP,Tdap and Td Vaccines (1 - Tdap)10/05/1999COVID-19 Vaccine (6 - 2025-26 season)2025 02/23/2023, 02/08/2022, 05/26/2021, Additional history existsInfluenza Vaccine 01/22/2025dult BMI Mjbfzdknz96Tobacco Lzignvdpa68/14/2025 04/06/2024ap Smear Medical Devices Not on file Insurance
--- OUTSIDE RECORDS SUMMARY | 2025-04-05 18:46 | XMS_ITS | Encounter Summary ---
Author Organization [facility] Address [address] [place] [address] Care Team Providers Care Customer Support Agent Name Role Phone Manuel Klein MD Unavailable [phone] Manuel Klein MD Primary Care Provider +-[phone] Manuel Klein MD Unavailable [phone] Source Comments In the event this information is protected by the Federal Confidentiality of Alcohol and Drug AbusePatient Records regulations: The Federal rules restrict any use of the information to criminally investigate or prosecute any alcohol or drug abuse patient.[facility] Encounter Details DateTypeDepartmentCare Team (Latest Contact Info)Gbzcjeynhdk04/12/2025Orders Only Hematology/Oncology [address] [place] [address] Rebekah Rojas, MARKETING INFORMATION MANAGER.BATH STEWARD/STEWARDESS [address] [place] [address] Social History Tobacco UseTypesPacks/DayYears UsedDateSmoking Tobacco: Every IxmHminxvniil947 Smokeless Tobacco: NeverAlcohol UseStandard Drinks/WeekCommentsNo0 (1 standard drink = 0.6 oz pure alcohol)PHQ-2AnswerDate RecordedPHQ-2 ajovs7384Area Deprivation IndexAnswerDate RecordedNational Score (1-100), lower number is lower vnef486709/24/2022State Score (1-10), lower number is lower brpf122 Data from: https://www.neighborhoodatlas.medicine.[facility]/. Last address used for keokptufwqv[address]3CommentsNoSex and Gender InformationValueDate RecordedSex Assigned at BirthNot on fileLegal SexFemale 05/31/2014 2:51 PM ESTGender IdentityNot on fileSexual OrientationNot on file documented as of this encounter Functional Status * Are you deaf or do you have serious difficulty hearing?AnswerDate of BjpwfvfshySwnzoaCt94/04/2015 11:14 AM Chichi Stevens Ma * Are you blind or do you have serious difficulty seeing, even when wearing glasses?AnswerDate of CyzyvpntvjXjhnskRz15/04/2015 11:14 AM Chichi Stevens Ma * Do you have serious difficulty walking or climbing stairs?AnswerDate of IwlcjmpicvFuuqdkElz91/04/2015 11:14 AM Chichi Stevens Ma * Do you have difficulty dressing or bathing?AnswerDate of AssessmentAuthorYes 12/25/2014 11:14 AM Chichi Stevens Ma * Because of a physical, mental, or emotional condition, do you have difficulty doing errands alone such as visiting a doctor's office or shopping?AnswerDate of WsxymimckvNspyotAl40/04/2015 11:14 AM Chichi Stevens Ma documented as of this encounter Mental Status * Because of a physical, mental, or emotional condition, do you have serious difficulty concentrating, remembering, or making decisions?AnswerEntry Date YemyjlJy24/04/2015 11:14 AM Chichi Stevens Ma documented in this encounter Plan of Treatment DateTypeDepartmentCare Team (Latest Contact Info)Dibvrqnneuo97/19/2025 9:00 AM ESTInfusion Center Hematology/Oncology [address] [place] [address] [place] [address] GamunexC 35g Q 3 WEEKS05/02/2025 9:00 AM ESTInfusion Center Hematology/Oncology [address] [place] [address] IVIG Q 3 WEEKS05/03/2025 2:00 PM [facility] Hematology/Oncology [address] [place] [address] BENLYSTA -05/07/2025 11:30 AM [facility] [address] [place] [address] Christie Phan MD [address], [place] [address] MYCHART ZOOM05/23/2025 9:00 AM [facility] Hematology/Oncology [address] [place] [address] IVIG Q 3 WEEKS06/13/2025 8:45 AM ESTOffice Visit [facility] [address] [place] [address] 12 week follow up IVIG06/13/2025 9:00 AM ESTVisit (SP) Office Hematology/Oncology [address] [place] [address] Fara Lopez APRN.BATH STEWARD/STEWARDESS [address] [place] [address] 12 week follow up IVIG06/13/2025 9:30 AM [facility] Hematology/Oncology [address] [place] [address] 12 week follow up IVIGdocumented as of this encounter Visit Diagnoses Not on filedocumented in this encounter Care Teams Team MemberRelationshipSpecialtyStart DateEnd Date Manuel Klein MD PCP - GeneralFamily Ijmzmueq20/7/22 Manuel Klein MD ReferringFamily Medicine02/12/22 Manuel Klein MD [address] [place] [address] ReferringFamily Medicine07/06/24documented as of this encounter
--- OUTSIDE RECORDS SUMMARY | 2025-04-05 18:47 | XMS_ITS | Encounter Summary ---
Author Organization [facility] Address [address] [place] [address] Care Team Providers Care Hand Binder Cutter Name Role Phone House, Charles Culver MD Primary Care Provider Gay De La Torre MD Unavailable [phone] Encounter Details DateTypeDetuba city regional health care corporationmentCare Team (Latest Contact Info)Dlrnoqqmzba24/04/2024Clinisync Result Encounter NOMS External Department Unsolicited Judy Arciniega MD [address], [address] [address] Social History Tobacco UseTypesPacks/DayYears UsedDateSmoking Tobacco: Every SsqOhipuebosu270.9 Started: 05/24/1995Smokeless Tobacco: Never Comments:Current smoker, carlos mars, 11-20 cigarettes/day Alcohol UseStandard Drinks/WeekCommentsNever0 (1 standard drink = 0.6 oz pure alcohol)Caffeine intake : > 4 cups per dayCommentsNoSex and Gender InformationValueDate RecordedSex Assigned at BirthNot on fileLegal SexFemale 08/05/2022 7:18 PM EDTGender IdentityNot on fileSexual OrientationNot on file documented as of this encounter Plan of Treatment DateTypeDechi st. vincent hospitalCare Team (Latest Contact Info)Rxqagryorxj89/17/2025 9:30 AM ESTOffice Visit [facility] 703 [facility] 150 [place] [address] Terence Blum MD 7[address] [facility] 150 [place] [address] 06/21/2025 8:00 AM ESTOffice Visit [facility] [place] [facility] [address] [place] [address] Kade Richardson MD 3768 [facility] [address] [address] 07/25/2025 11:00 AM ESTOffice Visit [facility] [address] [place] [address] Cynthia English MD [address] [place], [place] [address] documented as of this encounter Procedures Procedure NamePriorityDate/TimeAssociated DiagnosisCommentsSEGMENTAL BLOOD MOZMPMWQ12/04/2024 12:29 PM EST documented in this encounter Results * SEGMENTAL BLOOD PRESSURE (04/26/2024 12:29 PM EST)Anatomical RegionLaterality ModalityRadiographic ImagingSpecimen (Source)Anatomical Location / Laterality Collection Method / VolumeCollection TimeReceived Time04/26/2024 12:29 PM EST Narrative 04/26/2024 12:31 PM EST [facility] ?[address] ? [place] [address] ?Vein Report ? Signed ? Patient: JONES PANIAGUA ?MR#: [id number] ?? : 1980 ?Acct:[id number] ?? Age/Sex: 43 / F ?ADM Date: 04/26/24 ?? Loc: VC ? Attending Dr: Judy Arciniega M.D. ? Ordering Physician: Judy Arciniega M.D. ?? Date of Service: 04/26/24 ?? Procedure(s): VC SEGMENTAL PRESSURES ?? Accession Number(s): [id number] ? cc: GAY DE LA TORRE ; Judy Arciniega M.D. ? [facility] ? [address] ? [place] [address] ? Patient Name: ?? JONES PANIAGUA ? MRN: [facility]:[id number] ? date: 1980 ?Sex: F ?? Assigned Patient Location: VC ?? Current Patient Location: VC ?? Accession/Order Number: [id number] ?? Exam Date: 04/26/2024 ??10:45 ?Report Date: 04/26/2024 ??12:29 ? At the request of: ?? MOHAMED ??PRIYANKA ? Procedure: ??VC SEGMENTAL PRESSURES ? EXAM: VC SEGMENTAL PRESSURES ? HISTORY: I73.9 ? COMPARISON: None. ? FINDINGS: ? Segmental pressures presented as follows (right, left) in mmHg. ? Brachial: 102, 109 ?? Upper thigh: 175, 183 ?? Lower thigh: 166, 177 ?? Calf: 140, 143 ?? DPA: 123, 148 ?? BODY BUILDER APPRENTICE: 139, 155 ?? 1st Toe: 141, 143 ? SAMUEL: 1.28, 1.42 ?? TBI: 1.29, 1.31 ? The ABIs are Normal ?? The TBI's are normal ? PVR waveforms: ? Right leg: ?? Thigh: Normal ?? Above knee: Normal ?? Below knee: Normal ?? Right ankle: Normal ? Left leg: ?? Thigh: Normal ?? Above knee: Normal ?? Below knee: Normal ?? Right ankle: Normal ? VEIN/VC SEGMENTAL PRESSURES ?? IMPRESSION: ? Normal exam ? Electronically authenticated by: AURORA ??NEEL ?? Date: 04/26/2024 ??12:29 ? Dictated By: ?Aurora Shaikh M.D. ? Signed By: ?04/26/24 1231 ? DD/ 1229 ? TD/TT: ? Newspaper Photographer: Procedure Note Radiology, Radiologist, - 04/26/2024 [place] [address] Vein Report Signed Patient: JONES PANIAGUA BMR#: [id number] : 1980Acct:[id number] Age/Sex: 43 / FADM Date: 04/26/24 Loc: VC Attending Dr: Judy Arciniega M.D. Ordering Physician: Judy Arciniega M.D. Date of Service: 04/26/24 Procedure(s): VC SEGMENTAL PRESSURES Accession Number(s): [id number] cc: GAY DE LA TORRE ; Judy Arciniega M.D. The [address] [address] Patient Name: JONES PANIAGUA MRN: [facility]:[id number] date: 1980 Sex: F Assigned Patient Location: Current Patient Location: Accession/Order Number: [id number] Exam Date: 04/26/2024 10:45 Report Date: 04/26/2024 12:29 At the request of: JUDY ARCINIEGA Procedure: VC SEGMENTAL PRESSURES EXAM: VC SEGMENTAL PRESSURES HISTORY: I73.9 COMPARISON: None. FINDINGS: Segmental pressures presented as follows (right, left) in mmHg. Brachial: 102, 109 Upper thigh: 175, 183 Lower thigh: 166, 177 Calf: 140, 143 DPA: 123, 148 BODY BUILDER APPRENTICE: 139, 155 1st Toe: 141, 143 SAMUEL: [...] M.D. Signed By:04/26/24 1231 DD/ 1229 TD/TT: Newspaper Photographer: Authorizing ProviderResult TypeResult StatusMohamed Teresa Arciniega MDIMAdrienne XR PROCEDURES Final Result documented in this encounter Visit Diagnoses Not on filedocumented in this encounter Care Teams Team MemberRelationshipSpecialtyStart DateEnd Date Charles Nicole MD PCP - GeneralFamily Medicine Gay De La Torre MD [address] [place] [address] Referring PhysicianFamily Medicine07/18/24documented as of this encounter
--- OUTSIDE RECORDS SUMMARY | 2025-04-05 18:47 | XMS_ITS | Encounter Summary ---
Author Organization [facility] Address [address] [facility] [place] [address] Care Team Providers Care Soda Flaker Name Role Phone House, Charles Culver MD Primary Care Provider [phone] Gay De La Torre MD Unavailable [phone] Encounter Details DateTypeDe[facility] Team (Latest Contact Info)Ybqewtmlkyv26/22/2025linisync Result Encounter [facility]S External Department Unsolicited Oly Plascencia PA [address] [place] [address] Dr [place]aly [place], [place] [address] Social History Tobacco UseTypesPacks/DayYears UsedDateSmoking Tobacco: Every WpqWhpkxfdhoc444.9 Started: 05/24/1995Smokeless Tobacco: Never Comments:Current smoker, carlos ryedwin, 11-20 cigarettes/day Alcohol UseStandard Drinks/WeekCommentsNever0 (1 standard drink = 0.6 oz pure alcohol)Caffeine intake : > 4 cups per dayCommentsNoSex and Gender InformationValueDate RecordedSex Assigned at BirthNot on fileLegal SexFemale 08/05/2022 7:18 PM EDTGender IdentityNot on fileSexual OrientationNot on file documented as of this encounter Plan of Treatment DateTypeDebaptist health medical centerCare Team (Latest Contact Info)Wduwpsqjwkw51/17/2025 9:30 AM ESTOffice Visit [facility] [address] [phone] Terence Blum MD 703 [facility] 150 [place] [address] 06/21/2025 8:00 AM ESTOffice Visit [facility] [place] [facility] [address] [place] [address] Kade Richardson MD 3811 [facility] [address] [address] 07/25/2025 11:00 AM ESTOffice Visit [facility] [address] [place] [address] Cynthia English MD [address] [place] [address] documented as of this encounter Procedures Procedure NamePriorityDate/TimeAssociated DiagnosisCommentsUS BREAST LT LIMITED 06/14/2024 3:04 PM EST documented in this encounter Results * US BREAST LT LIMITED (06/14/2024 3:04 PM EST)Anatomical RegionLaterality ModalityOtherSpecimen (Source)Anatomical Location / LateralityCollection Method / VolumeCollection TimeReceived Time06/14/2024 3:04 PM EST Narrative 06/14/2024 3:05 PM EST [facility] ?[address] ? [place] [address] ? Ultrasound Report ? Signed ? Patient: JONES PANIAGUA ?MR#: [id number] ?? : 1980 ?Acct:[id number] ?? Age/Sex: 43 / F ?ADM Date: 06/14/24 ?? Loc: MAMMO ? Attending Dr: Oly Plascencia ? Ordering Physician: Oly Plascencia ?? Date of Service: 06/14/24 ?? Procedure(s): US breast LT limited ?? Accession Number(s): [id number] ? cc: Oly Plascencia; GAY DE LA TORRE ? Patient Name: ? JONES PANIAGUA ? MR#: [id number] ? : 1980 ? Exam Date: 06/14/2024 ?? Ordering Doctor: KELVIN Plascencia . ? RADIOLOGY REPORT ? PROCEDURE: ? US BREAST LT LIMITED ? COMPARISON: ? None. ? INDICATIONS: ? Left Axilla Nodule ? TECHNIQUE: ? Breast ultrasound was performed, with evaluation focusing only ?? on specific areas of concern. ? FINDINGS: ? DIAGNOSTIC CATEGORY 3--PROBABLY BENIGN FINDING. ??THE FOLLOWING FINDING(S) HAS ?? A HIGH PROBABILITY OF A BENIGN ETIOLOGY: ? LEFT BREAST: ??Within the subdermal layer of the left breast axillary tail ?? corresponding to patient's palpable lump is a 7 x 6 x 4 mm hypoechoic ?? well-circumscribed lesion with slightly isoechoic central and no appreciable ?? internal blood flow on color Doppler. ??Sebaceous gland cyst versus lymph node? ?? Neoplasm is not excluded but felt less likely. ??Ultrasound-guided tissue ?? sampling could be performed if clinically indicated. ? RECOMMENDATIONS: ? CLINICAL EVALUATION. ? PLEASE NOTE: ??A NORMAL ULTRASOUND EXAMINATION DOES NOT EXCLUDE THE POSSIBILITY ?? OF BREAST CANCER. ??A CLINICALLY SUSPICIOUS PALPABLE LUMP SHOULD BE BIOPSIED. ? Dictated by: Vito Yusuf M.D. on 06/14/2024 at 15:01 ? Approved by: Vito Yusuf M.D. on 06/14/2024 at 15:04 ? Dictated By: ?Vito Yusuf M.D. ? Signed By: ?06/14/24 1505 ? DD/ 1504 ? TD/TT: ? Senior Android Developer: Procedure Note Radiology, Radiologist, MD - 06/14/2024 [place] [address] Ultrasound Report Signed Patient: JONES PANIAGUA BMR#: [id number] : 1980Acct:[id number] Age/Sex: 43 / FADM Date: 06/14/24 Loc: MAMMO Attending Dr: Oly Plascencia Ordering Physician: Oly Plascencia Date of Service: 06/14/24 Procedure(s): US breast LT limited Accession Number(s): [id number] cc: Oly Plascencia; GAY DE LA TORRE Patient Name: JONES PANIAGUA MR#: [id number] : 1980 Exam Date: 06/14/2024 Ordering Doctor: [...] M.D. Signed By:06/14/24 1505 DD/ 1504 TD/TT: Senior Android Developer: Authorizing ProviderResult TypeResult StatusAmy Temo PACLINISYNC IMAGINGFinal Result documented in this encounter Visit Diagnoses Not on filedocumented in this encounter Care Teams Team MemberRelationshipSpecialtyStart DateEnd Date Charles Nicole MD PCP - GeneralFamily Medicine/ Gay De La Torre MD [address] [place] [address] Referring PhysicianFamily Medicine07/18/24documented as of this encounter
--- OUTSIDE RECORDS SUMMARY | 2025-04-05 18:47 | XMS_ITS | Encounter Summary ---
Author Organization [facility] Address [address] [place] [address] Care Team Providers Care Electron Microscopist Name Role Phone House, Charles Culver MD Primary Care Provider [phone] Gay De La Torre MD Unavailable [phone] Encounter Details DateTypeDepresbyterian kaseman hospitalmentCare Team (Latest Contact Info)Pbswkymhtro21/15/2024linisync Result Encounter NOMS External Department Unsolicited Luan Valdivia, DO [address] [facility] [address]ili[address] [place], [place] [address] Social History Tobacco UseTypesPacks/DayYears UsedDateSmoking Tobacco: Every IylFvictfgmja962.9 Started: 05/24/1995Smokeless Tobacco: Never Comments:Current smoker, carlos ryday, 11-20 cigarettes/day Alcohol UseStandard Drinks/WeekCommentsNever0 (1 standard drink = 0.6 oz pure alcohol)Caffeine intake : > 4 cups per dayCommentsNoSex and Gender InformationValueDate RecordedSex Assigned at BirthNot on fileLegal SexFemale 08/05/2022 7:18 PM EDTGender IdentityNot on fileSexual OrientationNot on file documented as of this encounter Plan of Treatment DateTypeDebradley county medical centerCare Team (Latest Contact Info)Hkztrspxsja54/17/2025 9:30 AM ESTOffice Visit [facility] 703 [facility] 150 [place] [address] Terenec Blum MD 703 [facility] 150 [place] [address] 06/21/2025 8:00 AM ESTOffice Visit [facility] [place] [facility] [address] [place] [address] Kade Richardson MD 0841 [email or web address] [address], [place] [address] 07/25/2025 11:00 AM ESTOffice Visit [facility] [address] [place] [address] Cynthia English MD [address] [place], [place] [phone] documented as of this encounter Procedures Procedure NamePriorityDate/TimeAssociated DiagnosisCommentsUS BREAST BI LIMITED 04/07/2024 8:40 AM EST documented in this encounter Results * US BREAST BI LIMITED (04/07/2024 8:40 AM EST)Anatomical RegionLaterality ModalityOtherSpecimen (Source)Anatomical Location / LateralityCollection Method / VolumeCollection TimeReceived Time04/07/2024 8:40 AM EST Narrative 04/07/2024 8:41 AM EST [facility] ?[address] ? [place] [address] ? Ultrasound Report ? Signed ? Patient: JONES PANIAGUA ?MR#: [id number] ?? : 1980 ?Acct:[id number] ?? Age/Sex: 43 / F ?ADM Date: 04/06/24 ?? Loc: US ? Attending Dr: Luan Valdivia D.O. ? Ordering Physician: Luan Valdivia D.O. ?? Date of Service: 04/06/24 ?? Procedure(s): US breast BI limited ?? Accession Number(s): [id number] ? cc: GAY DE LA TORRE ; Luan Valdivia D.O. ? Patient Name: ? JONES PANIAGUA ? MR#: [id number] ? : 1980 ? Exam Date: 04/06/2024 [...] ?? age 56. ? LOCATION: ? [facility] ? BREAST COMPOSITION: ? There are [...] 0841 ? DD/ 0840 ? TD/TT: ? Communications Intern: Procedure Note Radiology, Radiologist, MD - 04/07/2024 [place] [address] Ultrasound Report Signed Patient: JONES PANIAGUA BMR#: [id number] : 1980Acct:[id number] Age/Sex: 43 / FADM Date: 04/06/24 Loc: US Attending Dr: Luan Valdivia D.O. Ordering Physician: Luan Valdivia D.O. Date of Service: 04/06/24 Procedure(s): US breast BI limited Accession Number(s): [id number] cc: GAY DE LA TORRE ; Luan Valdivia D.O. Patient Name: JONES PANIAGUA MR#: [id number] : 1980 Exam Date: 04/06/2024 Ordering Doctor: DR Luan Valdivia . RADIOLOGY REPORT PROCEDURE: MM TOMOSYNTHESIS DIAGNOSTIC BI, 04/06/2024, 15:20 US BREAST BI LIMITED, 04/06/2024, 15:37 COMPARISON: MM TOMOSYNTHESIS SCREENING BI, 09/23/2023. MG MAMM [id number] MARK CAD, 09/01/2022. MG MAMM SCREEN 3D [...] LOCATION: [facility] BREAST COMPOSITION: There are scattered areas [...] 08:40 Dictated By: Vito Yusuf M.D. Signed By:04/07/24840 DD/ 9 TD/TT: Communications Intern: Authorizing ProviderResult TypeResult StatusCorey Skip DOCLINISYNC IMAGINGFinal Result documented in this encounter Visit Diagnoses Not on filedocumented in this encounter Care Teams Team MemberRelationshipSpecialtyStart DateEnd Date Charles Nicole MD PCP - GeneralFamily Medicine Gay De La Torre MD [address] [place], [place] [phone] Referring PhysicianFamily Medicine07/18/24documented as of this encounter
--- OUTSIDE RECORDS SUMMARY | 2025-04-05 18:47 | XMS_ITS | Encounter Summary ---
Author Organization [facility] Address [address] [facility] [place] [address] Care Team Providers Care Coke Wheeler Name Role Phone House, Charles Culver MD Primary Care Provider [phone] Gay De La Torre MD Unavailable [phone] Encounter Details DateTypeDeC[facility] Team (Latest Contact Info)Xdyhfiuqwxc43/22/2025linisync Result Encounter [facility]S External Department Unsolicited Oly Plascencia PA [address] [place] [address] Dr [place]aly [place], [place] [address] Social History Tobacco UseTypesPacks/DayYears UsedDateSmoking Tobacco: Every WeaXquefihlmd083.9 Started: 05/24/1995Smokeless Tobacco: Never Comments:Current smoker, carlos ryedwin, 11-20 cigarettes/day Alcohol UseStandard Drinks/WeekCommentsNever0 (1 standard drink = 0.6 oz pure alcohol)Caffeine intake : > 4 cups per dayCommentsNoSex and Gender InformationValueDate RecordedSex Assigned at BirthNot on fileLegal SexFemale 08/05/2022 7:18 PM EDTGender IdentityNot on fileSexual OrientationNot on file documented as of this encounter Plan of Treatment DateTypeDebaptist health medical centerCare Team (Latest Contact Info)Nrxpfscwjkh36/17/2025 9:30 AM ESTOffice Visit [facility] [address] [phone] Terence Blum MD 703 [facility] 150 [place] [address] 06/21/2025 8:00 AM ESTOffice Visit [facility] [place] [facility] [address] [place] [address] Kade Richardson MD 4686 [facility] [address] [address] 07/25/2025 11:00 AM ESTOffice Visit [facility] [address] [place] [address] Cynthia English MD [address] [place] [address] documented as of this encounter Procedures Procedure NamePriorityDate/TimeAssociated DiagnosisCommentsMM TOMOSYNTHESIS DIAGNOSTIC LT06/14/2024 4:14 PM EST documented in this encounter Results * MM TOMOSYNTHESIS DIAGNOSTIC LT (06/14/2024 4:14 PM EST)Anatomical Region LateralityModalityOtherSpecimen (Source)Anatomical Location / Laterality Collection Method / VolumeCollection TimeReceived Time06/14/2024 4:14 PM EST Narrative 06/14/2024 4:15 PM EST The [facility] ?[address] ? [place] [address] ? Mammography Report ? Signed ? Patient: TERAJONES Melissa ?MR#: [id number] ?? : 1980 ?Acct:[id number] ?? Age/Sex: 43 / F ?ADM Date: 06/14/24 ?? Loc: MAMMO ? Attending Dr: Oly Plascencia ? Ordering Physician: Oly Plascencia ?Results: ? Date of Service: 06/14/24 ?Follow Up: ? Procedure(s): MM tomosynthesis diagnostic LT ?? Accession Number(s): [id number] ? cc: Oly Plascencia; GAY DE LA TORRE ? Patient Name: ? JONES PANIAGUA ? MR#: [id number] ? : 1980 ? Exam Date: 06/14/2024 ?? Ordering Doctor: KELVIN Plascencia . ? RADIOLOGY REPORT ? PROCEDURE: ? MM TOMOSYNTHESIS DIAGNOSTIC LT ? COMPARISON: ? US BREAST LT LIMITED, 06/14/2024. ??MM TOMOSYNTHESIS DIAGNOSTIC ?? BI, 04/06/2024. ??MM TOMOSYNTHESIS SCREENING BI, 09/23/2023. ??MG MAMM SCREEN 3D ?? MARK CAD, 09/01/2022. ? INDICATIONS: ? Left Axilla Nodule ? Calculator Name ? NCI Breast Cancer [...] ?? age 56. ? LOCATION: ? [facility] ? BREAST COMPOSITION: ? There are scattered areas of fibroglandular density. ? FINDINGS: ? DIAGNOSTIC CATEGORY 3--PROBABLY BENIGN FINDING. ??THE FOLLOWING FINDING(S) HAS ?? A HIGH PROBABILITY OF A BENIGN ETIOLOGY: ? LEFT BREAST: ??Skin surface marker present over the posterior upper outer ?? quadrant with no underlying suspicious abnormality. ?? Ultrasound evaluation demonstrates a hypoechoic nodule versus cyst within the ?? axillary tail, 7 x 6 x 4 millimeters. ??No internal blood flow. ??Findings ?? nonspecific but suggestive of a sebaceous gland cyst or possibly a lymph node. ?? Ultrasound-guided tissue sampling could be performed if clinically indicated. ?? Otherwise clinical follow-up and annual screening mammography. ? RECOMMENDATIONS: ? CLINICAL EVALUATION. ? PLEASE NOTE: ??A NORMAL MAMMOGRAM DOES NOT EXCLUDE THE POSSIBILITY OF BREAST ?? CANCER. ??A CLINICALLY SUSPICIOUS PALPABLE LUMP SHOULD BE BIOPSIED. ? Dictated by: Vito Yusuf M.D. on 06/14/2024 at 16:11 ? Approved by: Vito Yusuf M.D. on 06/14/2024 at 16:14 ? Dictated By: ?Vito Yusuf M.D. ? Signed By: ?06/14/245 ? DD/ 1614 ? TD/TT: ? Entry Writer: Procedure Note Radiology, Radiologist, MD - 06/14/2024 [place] [address] Mammography Report Signed Patient: JONES PANIAGUA BMR#: [id number] : 1980Acct:[id number] Age/Sex: 43 / FADM Date: 06/14/24 Loc: MAMMO Attending Dr: Oly Plascencia Ordering Physician: Oly PlascenciaResults: Date of Service: 06/14/24Follow Up: Procedure(s): MM tomosynthesis diagnostic LT Accession Number(s): [id number] cc: Oly Plascencia; GAY DE LA TORRE Patient Name: JONES PANIAGUA MR#: [id number] : 1980 Exam Date: 06/14/2024 Ordering Doctor: KELVIN Plascencia . RADIOLOGY REPORT PROCEDURE: MM TOMOSYNTHESIS DIAGNOSTIC LT COMPARISON: US BREAST LT LIMITED, 06/14/2024. MM TOMOSYNTHESISDIAGNOSTIC BI, 04/06/2024. MM TOMOSYNTHESIS SCREENING BI, 09/23/2023. MG MAMM BGMGCU5S MARK CAD, 09/01/2022. INDICATIONS: Left Axilla Nodule Calculator Name NCI Breast Cancer Risk Assessment Tool 5 Year Breast Cancer Risk 1.00% Lifetime Breast Cancer Risk 13.20% Personal Breast Cancer No Personal Ovarian Cancer No Treatments None Family Cancers Grandmother-paternal with breast cancer at age 67; Aunt-paternal with breast cancer at age 50; Father with stomach cancer at age 56. LOCATION: [facility] BREAST COMPOSITION: There are scattered areas of [...] M.D. Signed By:06/14/24 1615 DD/ 1614 TD/TT: Entry Writer: Authorizing ProviderResult TypeResult StatusAmy Aneta PACLMOBILE INFIRMARY MEDICAL CENTERYN IMAGINGFinal Result documented in this encounter Visit Diagnoses Not on filedocumented in this encounter Care Teams Team MemberRelationshipSpecialtyStart DateEnd Charles Nicole MD PCP - GeneralFamily Medicine/ Gay De La Torre MD [address] [place] [address] Referring PhysicianFamily Medicine07/18/24documented as of this encounter
--- OUTSIDE RECORDS SUMMARY | 2025-04-05 18:47 | XMS_ITS | Encounter Summary ---
Author Organization [facility] Address [address] [facility] [place] [address] Care Team Providers Care Pr Intern Name Role Phone Gay De La Torre MD Unavailable [phone] Encounter Details DateTypeDeshiprock-northern navajo medical centerbmentCare Team (Latest Contact Info)Gwwforfwsbe13/13/2025amboo flowsheet [facility] [address] [facility] [place] [address] Oly Plascencia PA [address] [facility] [address] [place], [place] [address] Social History Tobacco UseTypesPacks/DayYears UsedDateSmoking Tobacco: Every XfaQbgepwqdkv389.9 Started: 05/24/1995Smokeless Tobacco: Never Comments:Current smoker, carlos ryday, 11-20 cigarettes/day Alcohol UseStandard Drinks/WeekCommentsNever0 (1 standard drink = 0.6 oz pure alcohol)Caffeine intake : > 4 cups per dayCommentsNoSex and Gender InformationValueDate RecordedSex Assigned at BirthNot on fileLegal SexFemale 08/05/2022 7:18 PM EDTGender IdentityNot on fileSexual OrientationNot on file documented as of this encounter Plan of Treatment DateTypeDeshiprock-northern navajo medical centerbmentCare Team (Latest Contact Info)Juxliwitmer22/17/2025 9:30 AM ESTOffice Visit [facility] [address] [phone] Terence Blum MD 703 [facility] 150 [place] [address] 06/21/2025 8:00 AM ESTOffice Visit [facility] [place] [facility] [address] [place] [address] Kade Richardson MD [address] [address] 07/25/2025 11:00 AM ESTOffice Visit [facility] [place] [facility] [address] [place] [address] Cynthia English MD [address] [place] [address] documented as of this encounter Visit Diagnoses Not on filedocumented in this encounter Care Teams Team MemberRelationshipSpecialtyStart DateEnd Date Gay De La Torre MD [address] [place] [address] Referring PhysicianFamily Medicine07/18/24documented as of this encounter
--- OUTSIDE RECORDS SUMMARY | 2025-04-05 18:47 | XMS_ITS | Encounter Summary ---
Author Organization [facility] Address [address] [facility] [place] [address] Care Team Providers Care Vice President For Philanthropy Name Role Phone House, Charles Culver MD Primary Care Provider [phone] Gay De La Torre MD Unavailable [phone] Encounter Details DateTypeDemena regional health systemCare Team (Latest Contact Info)Asdmcbeiavz02/15/2024linisync Result Encounter [facility] Unsolicited Oly Parnell PA [address] [place] [address] Dr [place], [place] [id number] Social History Tobacco UseTypesPacks/DayYears UsedDateSmoking Tobacco: Every AcjYtszimztyf885.9 Started: 05/24/1995Smokeless Tobacco: Never Comments:Current smoker, carlos mars, 11-20 cigarettes/day Alcohol UseStandard Drinks/WeekCommentsNever0 (1 standard drink = 0.6 oz pure alcohol)Caffeine intake : > 4 cups per dayCommentsNoSex and Gender InformationValueDate RecordedSex Assigned at BirthNot on fileLegal SexFemale 08/05/2022 7:18 PM EDTGender IdentityNot on fileSexual OrientationNot on file documented as of this encounter Plan of Treatment DateTypeDem[facility] regional health systemCare Team (Latest Contact Info)Pvntszwmjuu17/17/2025 9:30 AM ESTOffice Visit [facility] [address] [phone] Terence Blum MD [address] [facility] [address] [place] [address] 06/21/2025 8:00 AM ESTOffice Visit [facility] [place] [facility] [address] [place] [phone] Kade Richardson MD [address] [facility] [address] [address] 07/25/2025 11:00 AM ESTOffice Visit [facility] [address] [place] [address] Cynthia English MD [address] [place], [place] [phone] documented as of this encounter Procedures Procedure NamePriorityDate/TimeAssociated DiagnosisCommentsUS PELVIS W/ XGWYMANOMTXG57/15/2024 4:48 AM EST documented in this encounter Results * US PELVIS W/ TRANSVAGINAL (04/07/2024 4:48 AM EST)Anatomical RegionLaterality ModalityOtherSpecimen (Source)Anatomical Location / LateralityCollection Method / VolumeCollection TimeReceived Time04/07/2024 4:48 AM EST Narrative 04/07/2024 4:[address] [facility] ?[address] ? [place] [address] ? Ultrasound Report ? Signed ? Patient: JONES PANIAGUA ?MR#: [id number] ?? : 1980 ?Acct:[id number] ?? Age/Sex: 43 / F ?ADM Date: 04/06/24 ?? Loc: LAB ? Attending Dr: Oly Parnell ? Ordering Physician: Oly Parnell ?? Date of Service: 04/06/24 ?? Procedure(s): US pelvis w/ transvaginal ?? Accession Number(s): [id number] ? cc: Oly Parnell; GAY DE LA TORRE ? [facility] ? [address] ? [place] [address] ? Patient Name: ?? JONES PANIAGUA ? MRN: [facility]:[id number] ? date: 1980 ?Sex: F ?? Assigned Patient Location: LAB ?? Current Patient Location: ? Accession/Order Number: [id number] ?? Exam Date: 04/06/2024 ??15:45 ?Report Date: 04/07/2024 ??04:48 ? At the request of: ?? OLY ??PARMJIT ? Procedure: ??US pelvis w/ transvaginal ? EXAMINATION: US pelvis w/ transvaginal ? HISTORY: Pelvic Pain , menorrhagia ? COMPARISON: Ultrasound pelvis 11/18/2023 ? TECHNIQUE: Transabdominal and/or transvaginal sonographic examination was ?? performed as indicated by examination type. ? FINDINGS: ?? UTERUS: Normal size and appearance. Uterus size: 8.4 x 4.2 x 5.2 cm ?? ENDOMETRIUM: Normal homogeneous appearance. Endometrial thickness: 7 mm ?? RIGHT OVARY: Contains a 2.2 cm benign-appearing cyst. Duplex Doppler ?? demonstrates normal waveform and flow; resistive index 0.6. Ovary size: 3.3 x ?? 2.6 x 2.7 cm ?? LEFT OVARY: Not seen. ?? CUL-DE-SAC: Unremarkable. No significant free fluid. ?? BLADDER: Unremarkable. ?? OTHER: None. ? US/US pelvis w/ transvaginal ?? IMPRESSION: ? 1. No suspicious findings to account for patient's menorrhagia. ?? 2. Right ovary contains a 2.2 cm benign-appearing cyst. ? Electronically authenticated by: VITO ??MARISSA ?? Date: 04/07/2024 ??04:48 ? Dictated By: ?Vito Yusuf M.D. ? Signed By: ?04/07/24 0451 ? DD/ 0448 ? TD/TT: ? Federal Java Developer: Procedure Note Radiology, Radiologist, MD - 04/07/2024 [place] [address] Ultrasound Report Signed Patient: JONES PANIAGUA BMR#: [id number] : 1980Acct:[id number] Age/Sex: 43 / FADM Date: 04/06/24 Loc: LAB Attending Dr: Oly Parnell Ordering Physician: Oly Parnell Date of Service: 04/06/24 Procedure(s): US pelvis w/ transvaginal Accession Number(s): [id number] cc: Oly Parnell; GAY DE LA TORRE The [place] [id number] Patient Name: JONES PANIAGUA MRN: [id number] date: 1980 Sex: F Assigned Patient Location: LAB Current Patient Location: Accession/Order Number: [id number] Exam Date: 04/06/2024 15:45 Report Date: 04/07/2024 [...] M.D. Signed By:04/07/24 0451 DD/ 0448 TD/TT: Federal Java Developer: Authorizing ProviderResult TypeResult StatusAmy Parmjit PACLINISYNC IMAGINGFinal Result documented in this encounter Visit Diagnoses Not on filedocumented in this encounter Care Teams Team MemberRelationshipSpecialtyStart DateEnd Date Charles Nicole MD PCP - GeneralFamily Medicine Gay De La Torre MD [address] [place] [address] Referring PhysicianFamily Medicine07/18/24documented as of this encounter
--- OUTSIDE RECORDS SUMMARY | 2025-04-05 18:47 | XMS_ITS | Clinical Summary ---
Author Organization [facility] Address [address] [facility], [address] [place] [address] Care Team Providers Care Basic Combatant Swimmer Name Role Phone Gay De La Torre APRN - TECHNICAL SPECIALIST CYTOGENETICS Primary Care Provide r Allergies Active AllergyReactionsCriticalityNoted DateComments Sulfamethoxazole-Tesgbycosnek03/17/2021 Medications MedicationSigDispense QuantityRefillsLast FilledStart DateEnd DateStatus famotidine [...] times daily07/29/2020ctive Active Problems ProblemNoted DateDiagnosed DateRheumatoid kowikfils49/05/2022 Social History Tobacco UseTypesPacks/DayYears UsedDateSmoking Tobacco: Every DaySmokeless Tobacco: NeverAlcohol UseStandard Drinks/WeekCommentsNever0 (1 standard drink = 0.6 oz pure alcohol)CommentsUnknownSex and Gender InformationValueDate RecordedSex Assigned at BirthNot on fileLegal XzmUqftqc07/11/2013 11:20 PM EST Gender IdentityNot on fileSexual OrientationNot on file Last Filed Vital Signs Vital SignReadingTime TakenCommentsBlood Prppxtsf871/6501 2:38 PM EST Obynd323806/03/2021 2:38 PM EFKZdupjtsclmy48 ??C (98.6 ??F)06/03/2021 2:38 PM EST Respiratory Lrgs229710/07/2020 10:45 AM EDTOxygen Qsbzbbryzx61%10/07/2020 12:45 PM EDTInhaled Oxygen Concentration--Uirvfk899 kg (231 lb 7.2 oz)06/03/2021 2:38 PM GFBEqzedg296.2 cm (5' 7 )10/07/2020 9:01 AM EDTBody Mass Index36.25010/07/2020 9:01 AM EDT Plan of Treatment Not on file Insurance Advance Directives * Full Code (Latest Code Status on File) Date ActivatedDate InactivatedComments10/07/2020 8:32 AM10/08/2020 2:43 AM Care Teams Team MemberRelationshipSpecialtyStart DateEnd Date Gay De La Torre, MEASURER MACHINE - TECHNICAL SPECIALIST CYTOGENETICS [address] [place] [address] [address] [facility] - General06/03/21
--- OUTSIDE RECORDS SUMMARY | 2025-04-05 18:47 | XMS_ITS | Clinical Summary ---
Author Organization [facility] Address [address] [place] [id number] Care Team Providers Care Numerical Control Nesting Operator Name Role Phone Manuel Klein MD Unavailable [phone] Manuel Klein MD Primary Care Provider [phone] Manuel Klein MD Unavailable [phone] Allergies Active AllergyReactionsCriticalityNoted DateCommentsSulfamethoxazoleOther: See Aakfbmrk58/08/2015 CAUSED ENLARGED LYMPH NODES YsvlqeztqtuXcoopxfOtv87/12/2022 Patient states it was a long time ago and she did not have a severe reaction. She does not believe she is allergic, she just thinks she just experienced side effects. CodeineOther: See Cupxxahq31/08/2015 Make her feel Jittery. OTHERWISE, NO SOB/WHEEZING, and NO DYSPHAGIA, NO URTICARIA, NO ANGIOEDEMA DoxycyclineOther: See XxqtrmgtZtd09/29/2022 Patient states it was a long time ago and she did not have a severe reaction. She does not believe she is allergic, she just thinks she just experienced side effects. XubweZkelXjn89/08/2015 Patient states it was a long time ago and she did not have a severe reaction. She does not believe she is allergic, she just thinks she just experienced side effects. Sulfamethoxazole-SeyuxdqntrwaIsgfrwphDrj22/12/2022 Patient states it was a long time ago and she did not have a severe reaction. She does not believe she is allergic, she just thinks she just experienced side effects. TrimethoprimOther: See MczoxeoyFdm74/29/2022 Patient states it was a long time [...] erythematosus with other organ involvement (HCC),Encounter for detention current use of azathioprineTAKE 3 TABLETS BY MOUTH DAILY WITH FOOD. HOLD IF ON ANTIBIOTICS OR ILL. 270 tablet 4Active folic acid 1 mg tablet Indications:Vitamin B12 deficiencyTake 1 tablet by mouth once daily. 90 tablet 4Active mzipjvmgrbYBHIM-sekczy-qmzhkclbc (BMX 1:1:1) 1:1:1 liqd Take 5 mL [...] once daily at evening/night time, 30 day cgygso4811/23/2024tive hydrOXYchloroQUINE (PLAQUENIL) 200 mg tablet Indications:CHRISTIAN positive,Other [...] 5Active Active Problems ProblemNoted DateDiagnosed DateIron deficiency byidks0606/16/2024 Bzfxkvxtqnlitsoiucugf65/09/2024Frequent mumxisnwlp68/09/2024History of vitamin D kmdjywcbrc04/14/2024hronic fatigue and jmqbfvs8806/10/2023ilateral wrist pain 02/04/2023Raynaud's disease without /14/2023Steroid-induced arkkrgakrrkb79/14/2023Long term current use of systemic nqahtwpu37/14/2023 Excessive and frequent menstruation with irregular cycle Obesity, Class III, BMI >= 40009/07/2022Long-term use of high-risk medication 06/15/2022NA ouoeyocc12/23/2023OSA (obstructive sleep apnea)05/20/2022 Somnolence, stubmjr8605/20/2022nemia, qifoqpccgts08 Megaloblastic anemia due to vitamin B12 chlutrufhr20/12/2022iscoid lupus hgkzfaxlgxbye88/24/6998Eeymbjvbckbq11/03/2022ystemic lupus erythematosus 10/24/2021Vitamin D lbxdbmfdty43/14/2021levated sed rate03/05/2021High total serum IgM03/05/2021econdary osteoarthritis of multiple sites03/05/2021ash and nonspecific skin oodmhygy95/13/2021welling of lymph nodes03/05/2021hronic pain of toes of both feet03/05/2021ilateral leg ftploxke53/13/2021Hair loss 03/05/2021Family history of Crohn's aixrsoo8103/05/2021ong-term use of Plaquenil 03/05/2021ilateral qudsmkpkzwvu27/22/2016Vitamin B12 /08/2015 Nvhzxnnqzwcjkd19/08/0588Wawlcl62/08/2015Chronic bilateral low back pain with bilateral cjabhact50/08/2015Depression, recurrentChronic pain syndromePain, hip ObesityTobacco use disorder Resolved Problems ProblemNoted DateDiagnosed DateResolved DateObesity, Class II, BMI 35-39.9 Obesity (BMI 30-39.9) Encounters DateTypeDepartmentCare AzmrFyacwxfuuct45/13/2025 2:00 PM ESTInfusion Center Hematology/Oncology [address] [place] [place] [address] Other systemic lupus erythematosus with other organ involvement (HCC) (Primary Dx)04/05/2025 Patient Msg Rheumatology [address] [place] [address] Sandra Park MD Appointment Vazngvj6804/04/2025Orders Only Hematology/Oncology [address] [place] [address] Jose Cho MD Frequent infections (Primary Dx); Hypogammaglobulinemia (HCC); Bilateral leg weakness; Discoid lupus ivdkttzwlawoz65/12/2025Orders Only Hematology/Oncology [address] [place] [place] [address] Rebekah Rojas APRN.C.O.D. AUDIT CLERK 04/04/2025Orders Only Hematology/Oncology [address] [place] [address] Fara Lopez APRN.C.O.D. AUDIT CLERK Frequent infections (Primary Dx); Hypogammaglobulinemia (HCC); Bilateral leg weakness; Discoid lupus kfcpltomgufgl63/04/2025 Patient Msg Integrated Medicine [address] [place], [place] [id number] Christie Phan MD Appointment Pwcjyzm5303/27/2025 Patient Msg Rheumatology [address] [place] [address] Sandra Park MD Appointment Nzrniyj8003/21/2025 9:40 AM [facility] Hematology/Oncology [address] [place] [address] [place] [address] Gabbi, Chair 4 Frequent infections (Primary Dx); Hypogammaglobulinemia (HCC); Bilateral leg weakness; Discoid lupus erythematosus; Elevated sed rate; Megaloblastic anemia due to vitamin B12 cbvsxlaolc36/29/2025 9:20 AM EDTVisit (SP) Office Hematology/Oncology [address] [place] [place] [address] Jose Cho MD Hypogammaglobulinemia (HCC) (Primary Dx); Frequent infections; Megaloblastic anemia due to vitamin B12 deficiency; Elevated sed rate; Bilateral leg weakness; Discoid lupus erythematosus; Infection of left breast; Immunodeficiency (HCC); Type 2 diabetes mellitus without complication, without long-term current use of insulin (HCC)03/21/20259084Xmljqw59/28/2025Telephone Hematology/Oncology [address] [place] [address] [place] [address] Jose Cho MD Lab Nkteqh1403/19/20255672Ieuinc55/01/2025 9:30 AM [facility] Hematology/Oncology [address] [place] [address] [place] [address] Frequent infections (Primary Dx); Hypogammaglobulinemia (HCC); Bilateral leg weakness; Discoid lupus vnwurxvvnkzll06/01/2025 9:00 AM EDTVisit (SP) Office Hematology/Oncology [address] [place] [address] [place] [address] Fara Lopez APRN.C.O.D. AUDIT CLERK Frequent infections (Primary Dx); Hypogammaglobulinemia (HCC); Bilateral leg weakness; Discoid lupus erythematosus; Vitamin B12 deficiency; Shortness of breath; Other iron deficiency anemia; Malaise and bmsyqgn4202/21/2025 Get Medical Advice Hematology/Oncology [address] [place] [address] [place] [address] Provider, Ccf Blood work02/21/2025Telephone Cancer Appts [address] [place] [address] Fara Lopez APRN.C.O.D. AUDIT CLERK Bhpllkb3902/12/2025Telephone Hematology/Oncology [address] [place] [address] [place] [address] Enma Hamm RN Lab Ienrau6802/08/2025 2:00 PM [facility] [address] [place] [address] [place] [address] Elevated sed rate (Primary Dx); Megaloblastic anemia due to vitamin B12 deficiency; Other systemic lupus erythematosus with other organ involvement (HCC)02/06/2025 Orders Only Hematology/Oncology [address] [place] [address] [place] [address] Jose Cho MD 01/24/2025 9:00 AM [facility] Hematology/Oncology [address] [place] [address] [place] [address] Frequent infections (Primary Dx); Hypogammaglobulinemia (HCC); Bilateral leg weakness; Discoid lupus erythematosus; Elevated sed rate; Megaloblastic anemia due to vitamin B12 eeaojaopiq26/03/2025Orders Only Hematology/Oncology [address] [place] [address] [place] [address] Jose Cho MD Frequent infections (Primary Dx); Hypogammaglobulinemia (HCC); Bilateral leg weakness; Discoid lupus fpmuutkajvook72/02/2025Refill Rheumatology [address] [place] [address] Sandra Park MD Refill Ckpggnb5801/22/20258792Sldsln39/28/2025Telephone Rheumatology [address] [place], [place] [address] Sandra Park MD Ntfwcwp1601/11/2025 2:[facility] [address] [place] [address] [place] [address] Other systemic lupus erythematosus with other organ involvement (HCC) (Primary Dx); Elevated LFTs; Anemia of chronic disease; Elevated sed rate; Elevated C-reactive protein (CRP); Vitamin D deficiency; Vitamin B12 deficiency; Screening-pulmonary TBfrom Last 3 Months Immunizations ImmunizationAdministration DatesNext DueCOVID-19 vaccine, age 12+ yr (Tube2Tone COMIRNAT)02/23/2023 Family History Medical HistoryRelationCommentsCancerFatherstomachCrohn's [Other]MotherRelation StatusCommentsDaughter 1AliveDaughter 2AliveFatherDeceased (Age 57)stomach cancerMotherAlive (Age 55)crohn's diseaseSisterAliveSonAlive Social History Tobacco UseTypesPacks/DayYears UsedDateSmoking Tobacco: Every KepIczoiizzln692 Smokeless Tobacco: Never Tobacco Cessation:Ready to Q uit: Not Asked; Counseling Given: Not Answered Alcohol UseStandard Drinks/WeekCommentsNo0 (1 standard drink = 0.6 oz pure alcohol)PHQ-2AnswerDate RecordedPHQ-2 wckvx228rea Deprivation Index AnswerDate RecordedNational Score (1-100), lower number is lower risk59 09/24/2022State Score (1-10), lower number is lower tlgw1803Data from: https://www.neighborhoodatlas.medicine.[facility].edu/. Last address used [address]CommentsNoSex and Gender InformationValueDate RecordedSex Assigned at BirthNot on fileLegal SexFemale 05/31/2014 2:51 PM ESTGender IdentityNot on fileSexual OrientationNot on file Last Filed Vital Signs Vital SignReadingTime TakenCommentsBlood Jlgfceru894/80106/05/2024 2:15 PM EST Qcpjh92648/13/2025 2:15 PM VBMVyxyckzdvta06.6 ??C (97.8 ??F)04/05/2025 2:15 PM ESTRespiratory Fmxc669706/05/2024 2:15 PM ESTOxygen Yypvszmtvm96%04/05/2025 2:15 PM ESTInhaled Oxygen Concentration--Ncdphs373.1 kg (284 lb 9.8 oz)03/21/2025 9:22 AM OTYZxftuk768.2 cm (5' 7.01 )03/21/2025 9:22 AM EDTBody Mass Index44.57 03/21/2025 9:22 AM EDT Plan of Treatment DateTypeDepartmentCare Team (Latest Contact Info)Qfixltulwyn81/19/2025 9:00 AM ESTInfusion Center Hematology/Oncology [address] [place] [address] [place] [address] GamunexC 35g Q 3 WEEKS05/02/2025 9:00 AM ESTInfusion Center Hematology/Oncology [address] [place] [address] [place] [address] IVIG Q 3 WEEKS05/03/2025 2:00 PM ESTInfusion Center Hematology/Oncology [address] [place] [address] [place] [address] BENLYSTA -05/07/2025 11:30 AM [facility] [address] [place], [place] [phone] Christie Phan MD [address] [address] MYCHART ZOOM05/23/2025 9:00 AM ESTInfusion Center Hematology/Oncology [address] [place] [address] IVIG Q 3 WEEKS06/13/2025 8:45 AM ESTOffice Visit [facility] [address] [place] [address] 12 week follow up IVIG06/13/2025 9:00 AM ESTVisit (SP) Office Hematology/Oncology [address] [place] [address] Fara Lopez, PROCESS TRAINER.C.O.D. AUDIT CLERK [address] [place] [address] 12 week follow up IVIG06/13/2025 9:30 AM [facility] Hematology/Oncology [address] [place] [address] [place] [address] 12 week follow up IVIGHealth MaintenanceDue DateLast DoneCommentsCervical Cancer Krsvumohc03/14/1992Anxiety Drycjlqgn81/14/1999HIV Ywvkwihvj84/14/1999 DTaP,Tdap,Td Vaccine (1 - Tdap)10/05/1999Pneumococcal Vaccine (1 of 2 - PCV) 10/05/1999Shingrix Vaccine (1 of 2)10/05/1999HPV Vaccine (1 - Risk 3-dose SCDM series)10/05/2007Mammogram Ncqzjtshw68/14/2021ovid-19 Vaccine ( season), 02/08/2022, 05/26/2021, Additional history exists Influenza Vaccine (#1)2025Hepatitis C LwbdwpbxzUxdznaliy74/21/2025, 03/05/2021 Procedures Procedure NamePriorityDate/TimeAssociated DiagnosisCommentsIMMUNOGLOBULINS MARGIE Moxuxnt1803/21/2025 10:51 AM EDT Vitamin B12 deficiency Hypogammaglobulinemia (HCC) COMPREHENSIVE METABOLIC LENYSIodcxyq86/29/2025 9:16 AM EDT Vitamin B12 deficiency Hypogammaglobulinemia (HCC) CBC + IAUCZshdxvm00/29/2025 9:16 AM EDT Vitamin B12 deficiency Hypogammaglobulinemia (HCC) IMMUNOGLOBULINS BHVUquletg49/01/2025 8:51 AM EDT Hypogammaglobulinemia (HCC) Vitamin B12 deficiency Other iron deficiency anemia FOLATE HCLQCRouwbdo50/01/2025 8:51 AM EDT Hypogammaglobulinemia (HCC) Vitamin B12 deficiency Other iron deficiency anemia VITAMIN B12 RXQCIDliqnat43/01/2025 8:51 AM EDT Hypogammaglobulinemia (HCC) Vitamin B12 deficiency Other iron deficiency anemia FERRITIN YNEMxlfsbt72/01/2025 8:51 AM EDT Hypogammaglobulinemia (HCC) Vitamin B12 deficiency Other iron deficiency anemia IRON + FTOPXnpkzjz20/01/2025 8:51 AM EDT Hypogammaglobulinemia (HCC) Vitamin B12 deficiency Other iron deficiency anemia COMPREHENSIVE METABOLIC ZGSSXWrmatbj86/01/2025 8:51 AM EDT Hypogammaglobulinemia (HCC) Vitamin B12 deficiency Other iron deficiency anemia CBC + LJDCDdcpokk24/01/2025 8:51 AM EDT Hypogammaglobulinemia (HCC) Vitamin B12 deficiency Other iron deficiency anemia HEP B CORE AB XTDOTItsqlen60/21/2025 1:48 PM EDT Elevated LFTs HEP B SURF AB RCMTDzkshea47/21/2025 1:48 PM EDT Elevated LFTs HEP B SURF AG LRWLAjjbusu77/21/2025 1:48 PM EDT Elevated LFTs HEPATITIS C ANTIBODY IA WITH POXMALVPDDEBPlyorxs14/21/2025 1:48 PM EDT Elevated LFTs BLOOD TB PGZRMXJbrskfx00/21/2025 1:48 PM EDT Screening-pulmonary TB HEP REMOTE PANEL NVPerqbut22/21/2025 1:48 PM EDT Elevated LFTs VITAMIN B12 FMNLWMxjytuh13/21/2025 1:48 PM EDT Vitamin B12 deficiency VITAMIN D 25 ECWGEIJNwnhcaf25/21/2025 1:48 PM EDT Vitamin D deficiency C-REACTIVE PROTEIN (CRP)Fcreirw4001/11/2025 1:48 PM EDT Elevated sed rate Elevated C-reactive protein (CRP) SEDIMENTATION SITCGumxglo21/21/2025 1:48 PM EDT Elevated sed rate Elevated C-reactive protein (CRP) COMPLETE BLOOD EQASSLspwhea17/21/2025 1:48 PM EDT Anemia of chronic disease COMPREHENSIVE METABOLIC AFWTRJltchzz68/21/2025 1:48 PM EDT Elevated LFTs from Last 3 Months Results * (ABNORMAL) IMMUNOGLOBULINS,IGG,IGA,IGM (03/21/2025 10:51 AM EDT) Only the most recent of2 resultswithin the time period is included. ComponentValueRef RangeTest MethodAnalysis TimePerformed AtPathologist Signature IlV553(L)700 - 1,600 mg/dL03/21/2025 7:55 [address] [facility]TC[facility] UUDEwY704 70 - 400 mg/dL03/21/2025 7:55 PM EDTCLEVEL[facility] LQPFtU962(H)40 - 230 mg/dL03/21/2025 7:55 PM EDTCLEVELAND CLINIC MAIN LABSpecimen (Source)Anatomical Location / LateralityCollection Method / VolumeCollection TimeReceived TimeBlood BLOOD SPECIMEN / UnknownVenipuncture / Iooagwq9603/21/2025 10:51 AM EDT1 10:51 AM EDT Narrative Authorizing ProviderResult TypeResult StatusHolly Bob PROCESS TRAINER.CNPLABORATORY Final ResultPerforming OrganizationAddressCity/State/ZIP CodePhone Number [facility] [address] [place] [address], * (ABNORMAL) COMPREHENSIVE METABOLIC PANEL (03/21/2025 9:16 AM EDT) Only the most recent of3 resultswithin the time period is included. ComponentValueRef RangeTest MethodAnalysis TimePerformed AtPathologist Signature Protein, Total7.46.3 - 8.0 g/dL03/21/2025 9:41 AM EDTNORTFORMERLY [facility] LABAlbumin4.33.9 - 4.9 g/dL03/21/2025 9:41 AM EDTNOWETZEL COUNTY [facility] LABCalcium, Total10.08.5 - 10.2 mg/dL03/21/2025 9:41 AM EDT [facility] LABBilirubin, Total0.20.2 - 1.3 mg/dL 03/21/2025 9:41 AM EDTRTFORMERLY [facility] LABAlkaline Phosphatase 8034 - 123 U/L1 9:41 AM EDTNORTFORMERLY [facility] IDIUNZ2807 - 35 U/L1 9:41 AM EDTRTFORMERLY [facility] EFTEBI735 - 38 U/L1 9:41 AM [facility] FNJNbdsbke782(H)74 - 99 mg/dL03/21/2025 9:41 AM EDTWE[facility] LABComment: The [place] Diabetes Association (ADA) provides guidance for cutoff [...] Standards of Medical Care in Diabetes 2016, [place] Diabetes Association. Diabetes Care. 2016.39(Suppl 1). RLQ746 - 21 mg/dL03/21/2025 9:41 AM [facility] Creatinine0.51(L)0.58 - 0.96 mg/dL03/21/2025 9:41 AM EDJ[facility] VNGEugqqd029796 - 144 mmol/L1 9:41 AM [facility] LABPotassium4.03.7 - 5.1 mmol/L1 9:41 AM EDT [facility] EMITaqtcocd02574 - 107 mmol/L1 9:41 AM EDJ[facility] EIVHT51261 - 30 mmol/L1 9:41 AM [facility] LABAnion Vpw314 - 15 mmol/L1 9:41 AM [facility] LABEstimated Glomerular Filtration Rate 118>=60 mL/min/1.73m 03/21/2025 9:41 AM [facility] LABComment:Estimated Glomerular Filtration Rate (eGFR) [...] VolumeCollection TimeReceived TimeBloodBLOOD SPECIMEN / UnknownVenipuncture / Icsnmaq7903/21/2025 9:16 AM EDT1 9:16 AM EDT Narrative Authorizing ProviderResult TypeResult StatusHolly Bob DODSONCNPLABORATORY Final ResultPerforming OrganizationAddressCity/State/ZIP CodePhone Number [facility] [address] [place] [address] * (ABNORMAL) COMPLETE BLOOD COUNT AND DIFFERENTIAL (03/21/2025 9:16 AM EDT) Only the most recent of2 resultswithin the time period is included. ComponentValueRef RangeTest MethodAnalysis TimePerformed AtPathologist Signature WBC13.02(H)3.70 - 11.00 k/uL03/21/2025 9:20 AM EDTNORTFORMERLY [facility] LABRBC4.683.90 - 5.20 m/uL03/21/2025 9:20 AM EDTWE[facility] CZCQkapntywyh00.911.5 - 15.5 g/dL03/21/2025 9:20 AM EDTWE[facility] BXWFizfxizomm19.436.0 - 46.0 %03/21/2025 9:20 AM EDT [facility] XTEZUM91.980.0 - 100.0 fL03/21/2025 9:20 AM EDJ[facility] VPWBZP72.826.0 - 34.0 pg03/21/2025 9:20 AM EDTWE[facility] MVPPVKP49.630.5 - 36.0 g/dL03/21/2025 9:20 AM EDJ.[facility]. [facility] LABRDW-CV14.111.5 - 15.0 %03/21/2025 9:20 AM [facility] LABPlatelet Diqbk171055 - 400 k/uL 03/21/2025 9:20 AM EDTWE[facility] GSMJTO93.39.0 - 12.7 fL 03/21/2025 9:20 AM EDJ.W. [facility] LABNeutrophils %74.8% 03/21/2025 9:20 AM EDTWEIR[facility] LABAbs Neut9.74(H)1.45 - 7.50 k/uL03/21/2025 9:20 AM EDJ.[facility]. [facility] LABLymphocytes %14.9%03/21/2025 9:20 AM EDJ.[facility]. [facility] LABAbs Lymph1.94 1.00 - 4.00 k/uL03/21/2025 9:20 AM EDJ.[facility]. [facility] LAB Monocytes %7.2%03/21/2025 9:20 AM EDJ.[facility]. [facility] LABAbs Mono0.94(H)<0.87 k/uL03/21/2025 9:20 AM EDJ.[facility]. [facility] LAB Eosinophils %1.1%03/21/2025 9:20 AM EDJ.[facility]. [facility] LABAbs Eosin0.14<0.46 k/uL03/21/2025 9:20 AM EDJ.[facility]. [facility] Basophils %0.8%03/21/2025 9:20 AM EDJ.[facility]. [facility] LABAbs Baso0.10<0.11 k/uL03/21/2025 9:20 AM [facility] Immature Granulocytes %1.2%03/21/2025 9:20 AM [facility] LABAbs Immature Gran0.16(H)<0.10 k/uL03/21/2025 9:20 AM [facility] LABNRBC0.0/100 WBC03/21/2025 9:20 AM [facility] LABAbsolute nRBC<0.01<0.01 k/uL03/21/2025 9:20 AM EDT [facility] LABDiff CupwNmdo25/29/2025 9:20 AM EDT [facility] LABSpecimen (Source)Anatomical Location / LateralityCollection Method / VolumeCollection TimeReceived TimeBloodBLOOD SPECIMEN / UnknownVenipuncture / Dfpbhxg4103/21/2025 9:16 AM EDT1 9:16 AM EDT Narrative Authorizing ProviderResult TypeResult StatusHolly Bob PROCESS TRAINER.CNPLABORATORY Final ResultPerforming OrganizationAddressCity/State/ZIP CodePhone Number [facility] [address] [place] [address] * VITAMIN B12 (02/21/2025 8:51 AM EDT) Only the most recent of2 resultswithin the time period is included. ComponentValueRef RangeTest MethodAnalysis TimePerformed AtPathologist Signature Vitamin [id number] - 1,245 pg/mL02/21/2025 10:05 PM EDTCFULTON [facility] LABSpecimen (Source)Anatomical Location / LateralityCollection Method / VolumeCollection TimeReceived TimeBloodBLOOD SPECIMEN / UnknownVenipuncture / Hupgrdb2402/21/2025 8:51 AM EDT1 8:51 AM EDT Narrative Authorizing ProviderResult TypeResult StatusJaimee John PROCESS TRAINER.CNPLABORATORYFinal ResultPerforming OrganizationAddressCity/State/ZIP CodePhone Number [facility] [address] [address], [place] * (ABNORMAL) IRON AND TIBC (02/21/2025 8:51 AM EDT)ComponentValueRef RangeTest MethodAnalysis TimePerformed AtPathologist EihgwonqtAoxg28820 - 186 ug/dL 02/21/2025 9:46 PM EDTCFULTON COUNTY [facility] RKHTVGP219(H)232 - 386 ug/dL02/21/2025 9:46 PM EDTCFULTON COUNTY [facility] LABTransferrin Bbuhujewgf52.215.0 - 57.0 %02/21/2025 9:46 PM EDTCFULTON COUNTY [facility] LABSpecimen (Source)Anatomical Location / LateralityCollection Method / Volume Collection TimeReceived TimeBloodBLOOD SPECIMEN / UnknownVenipuncture / Bkqlnhq6502/21/2025 8:51 AM EDT1 8:51 AM EDT Narrative Authorizing ProviderResult TypeResult StatusJaimee John SIMSN.CNPLABORATORYFinal ResultPerforming OrganizationAddressCity/State/ZIP CodePhone Number [facility] [address] [address], [place] * FOLATE, SERUM (02/21/2025 8:51 AM EDT)ComponentValueRef RangeTest Method Analysis TimePerformed AtPathologist SignatureFolate>20.0>4.7 ng/mL02/21/2025 10:05 PM [facility] LABComment: A result of > 20 ng/mL is not necessarily indicative of a pathologic or treatable condition: it reflects a limitation of the test methodology. Assay reference range: 4.8 to 24.2 ng/mL. Suitable for detection of folate deficiency. Reference: Folate III (Folate III) [package insert V 1.0 Telugu]. [employer], [place], [place]: March 2015. Specimen (Source)Anatomical Location / LateralityCollection Method / Volume Collection TimeReceived TimeBloodBLOOD SPECIMEN / UnknownVenipuncture / Unknown 02/21/2025 8:51 AM EDT1 8:51 AM EDT Narrative Authorizing ProviderResult TypeResult StatusJaimee John PROCESS TRAINER.CNPLABORATORYFinal ResultPerforming OrganizationAddressCity/State/ZIP CodePhone Number [facility] [address] [place] [address], * FERRITIN (02/21/2025 8:51 AM EDT)ComponentValueRef RangeTest MethodAnalysis TimePerformed AtPathologist EdhrpivjcFryjlrye36.614.7 - 205.1 ng/mL02/21/2025 10:05 PM [facility] LABSpecimen (Source)Anatomical Location / LateralityCollection Method / VolumeCollection TimeReceived Time BloodBLOOD SPECIMEN / UnknownVenipuncture / Psjexep8002/21/2025 8:51 AM EDT 02/21/2025 8:51 AM EDT Narrative Authorizing ProviderResult TypeResult StatusJaimee John PROCESS TRAINER.CNPLABORATORYFinal ResultPerforming OrganizationAddressCity/State/ZIP CodePhone Number [facility] [address] [place] [address], * BLOOD TB SCREEN (01/11/2025 1:48 PM EDT)ComponentValueRef RangeTest Method Analysis TimePerformed AtPathologist SignatureTB Nil0.03<=8.00 IU/mL01/13/2025 9:[facility] LABTB1 Ag minus Nil0.01<0.35 IU/mL 01/13/2025 9:22 PM [facility] LABTB2 Ag minus Nil0.01 <0.35 IU/mL01/13/2025 9:22 PM [facility] LABTB Result Tzvmjdxj97/23/2025 9:22 PM [facility] LABMitogen minus Nil>9.97>=0.50 IU/mL01/13/2025 9:22 PM [facility] LABTB Gamma InterpretationInfection with M. tuberculosis complex is unlikely. If latent tuberculosis infection is highly suspected, a negative result does not rule out the infection. Specimens from immunocompromised patients and those <5 years of age may show false negative results. In case of a contact investigation, please repeat 8-12 weeks after a known exposure.01/13/2025 9:22 PM [facility] LABSpecimen (Source)Anatomical Location / LateralityCollection Method / VolumeCollection TimeReceived TimeBloodBLOOD SPECIMEN / UnknownVenipuncture / [id number]/11/2025 1:48 PM EDT01/11/2025 2:06 PM EDT Narrative Authorizing ProviderResult TypeResult StatusSandra Park MDLABORATORYFinal ResultPerforming OrganizationAddressCity/State/ZIP CodePhone Number [facility] [address] [place] [address], * VITAMIN D 25 HYDROXY (01/11/2025 1:48 PM EDT)ComponentValueRef RangeTest MethodAnalysis TimePerformed AtPathologist SignatureVitamin D 25 Sqoiebs73.2 31.0 - 80.0 ng/mL01/12/2025 1:27 PM [facility] Specimen (Source)Anatomical Location / LateralityCollection Method / Volume Collection TimeReceived TimeBloodBLOOD SPECIMEN / UnknownVenipuncture / [id number]/11/2025 1:48 PM EDT01/11/2025 2:06 PM EDT Narrative Authorizing ProviderResult TypeResult StatusSandra FROSTORATORYFinal ResultPerforming OrganizationAddressCity/State/ZIP CodePhone Number [facility] [address] [place] [address], * (ABNORMAL) SEDIMENTATION RATE, WESTERGREN (01/11/2025 1:48 PM EDT)Component ValueRef RangeTest MethodAnalysis TimePerformed AtPathologist SignatureSed Rate, Jnhuryyjuj39(H)0 - 20 mm/hr01/12/2025 1:02 AM [facility] LABSpecimen (Source)Anatomical Location / LateralityCollection Method / VolumeCollection TimeReceived TimeBloodBLOOD SPECIMEN / UnknownVenipuncture / Attooso0901/11/2025 1:48 PM EDT01/11/2025 2:06 PM EDT Narrative Authorizing ProviderResult TypeResult StatusSandra Park MDLABORATORYFinal ResultPerforming OrganizationAddressCity/State/ZIP CodePhone Number [facility] [address] [place] [address], * HEPATITIS B SURFACE ANTIGEN (01/11/2025 1:48 PM EDT)ComponentValueRef Range Test MethodAnalysis TimePerformed AtPathologist SignatureHBsAgNegativeNegative 01/12/2025 11:45 AM [facility] LABSpecimen (Source) Anatomical Location / LateralityCollection Method / VolumeCollection Time Received TimeBloodBLOOD SPECIMEN / UnknownVenipuncture / Inovtvr8701/11/2025 1:48 PM EDT01/11/2025 2:06 PM EDT Narrative Authorizing ProviderResult TypeResult StatusSandra Park MDLABORATORYFinal ResultPerforming OrganizationAddressCity/State/ZIP CodePhone Number [facility] [address] [place] [address], [place] * HEPATITIS B SURFACE ANTIBODY (01/11/2025 1:48 PM EDT)ComponentValueRef Range Test MethodAnalysis TimePerformed AtPathologist SignatureHep B Surface Ab, XrqqNhklhjen96/22/2025 11:44 AM [facility] LABComment: Consistent with serological evidence of immunity to Hepatitis B Virus.Hep B Surface Ab Yhtag744.77mIU/mL01/12/2025 11:44 AM [facility] LABComment: <8 mIU/mL: No serological [...] Narrative Authorizing ProviderResult TypeResult StatusSandra FROSTORATORYFinal ResultPerforming OrganizationAddressCity/State/ZIP CodePhone Number [facility] [address] [place] [address], * HEPATITIS B CORE ANTIBODY TOTAL (01/11/2025 1:48 PM EDT)ComponentValueRef RangeTest MethodAnalysis TimePerformed AtPathologist SignatureHepatitis B Core Ab, HpjasVkijcisbTldjcbug77/22/2025 11:47 AM EDTCFULTON [facility] LABComment:No evidence of current or past infection with Hepatitis B virus. Should recent infection be suspected, repeat testing may be considered 3-4 weeks after this draw.Specimen (Source)Anatomical Location / Laterality Collection Method / VolumeCollection TimeReceived TimeBloodBLOOD SPECIMEN / UnknownVenipuncture / Lalauhc1601/11/2025 1:48 PM EDT01/11/2025 2:06 PM EDT Narrative Authorizing ProviderResult TypeResult StatusSandra FROSTORATORYFinal ResultPerforming OrganizationAddressty/State/ZIP CodePhone Number [facility] [address] [place] [address], * (ABNORMAL) COMPLETE BLOOD COUNT (01/11/2025 1:48 PM EDT)ComponentValueRef RangeTest MethodAnalysis TimePerformed AtPathologist UzrzasgjwCMD62.61(H)3.70 - 11.00 k/uL01/11/2025 2:10 PM EDTNORTHCOABEAUMONT [facility]ITAL LABRBC4.29 3.90 - 5.20 m/uL01/11/2025 2:10 PM EDTNOWETZEL [facility] Pumsdvqoev29.811.5 - 15.5 g/dL01/11/2025 2:10 PM EDTNORTFORMERLY [facility] VMUMxgtsmwvda79.536.0 - 46.0 %01/11/2025 2:10 PM [facility] JAXAFE17.780.0 - 100.0 fL01/11/2025 2:10 PM [facility] MJWTET11.226.0 - 34.0 pg01/11/2025 2:10 PM EDT [facility] BFWVLOI91.330.5 - 36.0 g/dL01/11/2025 2:10 PM EDTWE[facility] LABRDW-CV14.511.5 - 15.0 %01/11/2025 2:10 PM EDTWE[facility] LABPlatelet Hdexh755406 - 400 k/uL01/11/2025 2:10 PM EDJ[facility] ABCVSC94.69.0 - 12.7 [place]01/11/2025 2:10 PM EDJ.[facility]. [facility] LABAbsolute nRBC<0.01<0.01 k/uL01/11/2025 2:10 PM EDJ.[facility] Specimen (Source)Anatomical Location / LateralityCollection Method / Volume Collection TimeReceived TimeBloodBLOOD SPECIMEN / UnknownVenipuncture / Akkwyor6601/11/2025 1:48 PM EDT01/11/2025 2:06 PM EDT Narrative Authorizing ProviderResult TypeResult StatusSandra Park MDLABORATORYFinal ResultPerforming OrganizationAddressCity/State/ZIP CodePhone Number [facility] [address] [place] [address] * C-REACTIVE PROTEIN (01/11/2025 1:48 PM EDT)ComponentValueRef RangeTest Method Analysis TimePerformed AtPathologist SignatureCRP<0.3<0.9 mg/dL01/12/2025 3:28 AM EDTCFULTON [facility] LABSpecimen (Source)Anatomical Location / LateralityCollection Method / VolumeCollection TimeReceived TimeBloodBLOOD SPECIMEN / UnknownVenipuncture / Egbvobo8901/11/2025 1:48 PM EDT01/11/2025 2:06 PM EDT Narrative Authorizing ProviderResult TypeResult StatusAngeliaemmanuel Xavier LEELABORATORYFinal ResultPerforming OrganizationAddressCity/State/ZIP CodePhone Number [facility] [address] [place] [address], * HEPATITIS C ANTIBODY IA WITH CONFIRMATION (01/11/2025 1:48 PM EDT)Component ValueRef RangeTest MethodAnalysis TimePerformed AtPathologist SignatureHep C Antibody HUHgrmycocVuqmdmyj09/22/2025 11:34 AM EDTCFULTON COUNTY [facility]ALTH [facility] LABComment:The result suggests no evidence of infection with Hepatitis C virus. Should recent infection be suspected, repeat testing may be considered 4-6 weeks after this draw.Specimen (Source)Anatomical Location / Laterality Collection Method / VolumeCollection TimeReceived TimeBloodBLOOD SPECIMEN / UnknownVenipuncture / Gargbso4501/11/2025 1:48 PM EDT01/11/2025 2:06 PM EDT Narrative Authorizing ProviderResult TypeResult StatusSandra Park MDLABORATORYFinal ResultPerforming OrganizationAddressCity/State/ZIP CodePhone Number [facility] [address] [place] [address], from Last 3 Months Insurance Care Teams Team MemberRelationshipSpecialtyStart DateEnd Date Manuel Klein MD PCP - GeneralFamily Damlbprm44/7/22 Manuel Klein MD ReferringFamily Medicine02/12/22 Manuel Klein MD [address] [place] [address] ReferringFamily Medicine07/06/24
--- OUTSIDE RECORDS SUMMARY | 2025-04-05 18:47 | XMS_ITS | Clinical Summary ---
Author Organization [facility] Address [address] [facility] [address] [place] [address] Care Team Providers Care Finishing Area Supervisor Name Role Phone Gay Enciso MD Unavailable [phone] Allergies Active AllergyReactionsCriticalityNoted QzlfSxhmmutsUjithjmwcgfLpc19/12/2022 Other Reaction(s): Unknown Patient states it was a long time ago and she did not have a severe reaction. ??She does not believe she is allergic, she just thinks she just experienced side effects. Other Reaction(s): Unknown Reaction Vbnjyvs2505/31/2014 Other Reaction(s): Other: See Comments, Trouble breathing ?... Make her feel ??Jittery. ??OTHERWISE, NO SOB/WHEEZING, and NO DYSPHAGIA, NO URTICARIA, NO ANGIOEDEMA JcmukysxuuuMldrvwt63/17/4385ZpftqXsloGhb30/08/2015 Other Reaction(s): Rash Patient states it was a long time ago and she did not have a severe reaction. ??She does not believe she is allergic, she just thinks she just experienced side effects. ZhhiybrugdHopcm83/16/2024 Other Reaction(s): Other Cexoxxwsgazj03/16/2024 Other Reaction(s): Other Optayjqdosbocsff28/17/2023 Other Reaction(s): gi Other Reaction(s): lymph swelling Sulfamethoxazole-RfilkkbwrkcaTwkhxevhTsz40/03/2016 Other Reaction(s): Other, sick Patient states it was a long time ago and she did not have a severe reaction. ??She does not believe she is allergic, she just thinks she just experienced side effects. Jtywdmdlnwos50/17/2023 Other Reaction(s): gi Other Reaction(s): lymph swelling Medications MedicationSigDispense QuantityRefillsLast FilledStart DateEnd DateStatus Triamcinolone Acetonide 0.025 % lotion 1 coqtcslvife46/31/2023ctive ibuprofen 200 MG tablet every 8 (eight) [...] the morning.01/15/2023ctive ergocalciferol (Vitamin D2) 1.25 MG (57945 UT) capsule Take 50,000 Units by mouth [...] g 5Active cephalexin (Keflex) 500 MG capsule 5Active norethindrone-ethinyl estradiol-iron (Lo Loestrin Fe) 1 MG-10 MCG / 10 MCG tablet Take 1 tablet by mouth in the morning.5ActiveHospital, Clinic, or Other Facility Administered MedicationOrdered DoseRouteFrequencyStart DateEnd Date Status triamcinolone acetonide (Kenalog) injection 2.5 mg Indications:Hidradenitis suppurativa,Pain2.5 mgINTRA-LGJEKLEbgf04/03/2025tive Active Problems ProblemNoted DateDiagnosed DateAbdominal mass03/14/20255893Ydxqlevd34/22/2025 Erszvepanbie49/22/4780Mbpfalspw97/22/2025Fatty liver03/14/2025Leukocytosis 03/14/2025Nontoxic single thyroid bumnmu5303/14/2025Type 2 diabetes mellitus 03/14/2025Pilonidal twofisp3302/28/2025Lupus wfhuaweprbipt94/14/2024Sacroiliitis 04/06/2024Frequent hisqzftoew42/09/2044Helfxlltiylujqxdjoamv79/09/2024. difficile dyofsxgq96/15/4007Vpzxyryu83/15/2024uct ectasia of zjlcsk0803/07/2024 GERD (gastroesophageal reflux disease)03/07/2024Insulin ziosofodkd12/15/2024 Facet arthritis of lumbar rttohp9312/15/2023Nipple exhvwtmdr39/24/2024Irregular periods/menstrual vplygz9211/15/2023egenerative disc disease, moilcb7411/08/2023 Iiiiqoqvwmlq50/17/2024History of vitamin D qjddqoyjpo05/14/2024rediabetes 08/24/2023ure hypercholesterolemia, wmaqpktwjaa03/19/2570Zvclvm01/19/2024 Thyroid hohacs9608/10/2023Shortness of xqemoj9607/13/2023aroxysmal supraventricular uitzeuhsnig28/20/2024AC (premature atrial contraction)07/13/2023ervical bxovqmaqpxxuu44/13/2024Lumbosacral radiculopathy at L507/06/2023hronic dqgdivelnmzurtsenx80/13/2024urrent ofmcuk7507/06/2023 Overview (07/06/2023): Added secondary to documentation in Social History. Tobacco use hgtbymrg87/13/2024ytomegalovirus vkdvvtvuj91/13/2024Disturbance of skin soiugwzuj17/13/2024Enthesopathy of hip jllrki3507/06/2023LPRD (laryngopharyngeal reflux disease)07/06/20239608Wmwvueg69/13/2024Oral lesion 07/06/2023ain, hip07/06/2023hronic fatigue and xrtqanl3606/10/2023nxiety 06/09/2023epression, gbkzcuwgc59/17/2024Essential uhgwxboccqpf80/17/2024 Autoimmune apzqjod8506/01/20230719Ewkvyjjvrahl61/09/2024utonomic dysfunction 06/01/20239258Elbuvatwe49/09/8153Zyhasplpbbk82/09/2024Nonintractable episodic fymdabbc89/09/2024ilateral wrist pain02/04/2023Long term current use of systemic ydevbskz03/14/2023Steroid-induced kkkoopzfccxw04/14/2023Raynaud's disease without vceyvfrf38/14/2023Excessive and frequent menstruation with irregular cycle09/24/2022Obesity, Class III, BMI 40-49.9 (morbid obesity) 09/07/2022NA /23/2023Long-term use of high-risk dpijpvjmnv05/23/2023 Obstructive sleep apnea ujvhjejt72/28/2022omnolence, oetmdll6305/20/2022nemia, ggehjxzyccv21/19/2022Megaloblastic anemia due to vitamin B12 deficiency 03/04/2022iscoid lupus svnpqbvnmismz25/24/2022Vitamin D icsqvogyhh16/14/2021 Bilateral leg lmrytcmb03/13/2021hronic pain of toes of both feet03/05/2021 Elevated sed rate03/05/2021High total serum IgM03/05/2021Family history of Crohn's uhlzfow2003/05/2021Hair loss03/05/2021ong-term use of Filvokanp21/13/2021 Rash and nonspecific skin ukgxfmzr84/13/2021econdary osteoarthritis of multiple sites03/05/2021welling of lymph nodes03/05/20218859Noshct57/08/2015Hyperlipidemia 05/31/2014Vitamin B12 uxxpjfcouw70/08/2015 Encounters DateTypeDepartmentCare OxcbFpolgrxgvjj82/13/2025 9:20 AM ESTOffice Visit [facility] [address] [place] [address] Oly Plascencia PA Discharge from left nipple; Discharge from right kghmye4204/05/2025amboo flowsheet [facility] [place] [facility] [address] [place] [address] Oly Plascencia PA 03/23/2025 9:45 AM EDTOffice Visit [facility] [address] [facility] [address] [place] [phone] Terence Blum MD Pilonidal abscess (Primary Dx)03/23/20253211Yehrpb72/30/2025linisync Result Encounter [facility] External Department Unsolicited Mary Grace Barfield MD 03/14/2025bstract [facility] [address] [place] [address] Luan Valdivia, 03/13/2025Telephone [facility] [address] [place] [address] Elizabeth Lockhart MA Final path came back from [facility]03/09/2025bstract [facility] [address] [place] [address] Luan Valdivia, 03/07/2025Orders Only [facility] [address] [phone] Terence Blum MD 03/06/20250288Zeqzcf72/13/2025Telephone [facility] [address] [place] [address] [address] [place] [address] Elizabeth Lockhart MA Questions on medications.03/02/2025External Result Encounter [facility] External Department Unsolicited Terence Blum MD 02/28/2025 9:30 AM EDTConsult [facility] [address] [address] Terence Blum MD Pilonidal abscess (Primary Dx); Pilonidal cyst02/28/20252502Ltaoza73/07/7104Ucylib16/06/9735Jvbezo18/07/2024Travel 02/19/20253544Itsiwv84/24/2025 3:20 PM EDTOffice Visit [facility] [place] [facility] [address] [place] [phone] Cynthia English MD Pilonidal cyst (Primary Dx); Hidradenitis lgachecdngb95/24/2025amboo flowsheet [facility] [place] [facility] [address] [place] [phone] Cynthia English MD 02/14/20254851Fhjpfj67/09/2025Results Follow-Up [facility] [place] [address] Sabi Barker LPN Left breast lqzvjov1501/26/2025 11:45 AM EDTAncillary Procedure [facility] [address] [place] [address] Other benign mammary dysplasias of left gwqtjs2701/26/2025Travelfrom Last 3 Months Family History Medical HistoryRelationNameCommentslung issueChild1 son with lung issue, 3 daughtersNo Known ProblemsDaughter 1CancerFatherWilliamPancreatitisFatherWilliam Stomach cancerFatherWilliamDiabetesMaternal GrandmotherClelauraHeart failure Maternal GrandmotherClelauraRheum arthritisMaternal GrandmotherClelauraCrohn's diseaseMotherSallyThyroid diseaseMotherSallyNo Known EjrlkmuuAexlvh5Namj disease SonRelationNameStatusCommentsChildAliveDaughter 3Brgti9 daughtersDaughter 2Alive Daughter 3AliveFatherWilliamDeceasedMaternal GrandmotherClelauraMotherSallyAlive Mother's SisterDeceasedSisterAlive1 sisterSonAlive1 son Social History Tobacco UseTypesPacks/DayYears UsedDateSmoking Tobacco: Every HtwOxqzjpltjj181.9 Started: 05/24/1995Smokeless Tobacco: Never Tobacco Cessation:Ready to Q uit: Yes; Counseling Given: Yes Comments:Current smoker, everyday, 11-20 cigarettes/day Alcohol UseStandard Drinks/WeekCommentsNever0 (1 standard drink = 0.6 oz pure alcohol)Caffeine intake : > 4 cups per dayCommentsNoSex and Gender InformationValueDate RecordedSex Assigned at BirthNot on fileLegal SexFemale 08/05/2022 7:18 PM EDTGender IdentityNot on fileSexual OrientationNot on file Last Filed Vital Signs Vital SignReadingTime TakenCommentsBlood Znemlpua253/7810 9:25 AM EDT Gbgjv63952 3:04 PM CVKHjslixvckzl72.1 ??C (98.7 ??F)04/02/2024 1:27 PM ESTRespiratory Ipry063208/24/2023 8:22 AM EDTOxygen Uoekpemmci76%04/02/2024 1:27 PM ESTInhaled Oxygen Concentration--Dgsvfy855 kg (291 lb)03/23/2025 10:09 AM EDT Jxfvij111.2 cm (5' 7 )03/23/2025 10:09 AM EDTBody Mass Index45.5803/23/2025 10:09 AM EDT Plan of Treatment DateTypeDepartmentCare Team (Latest Contact Info)Odgrvoxffov82/17/2025 9:30 AM ESTOffice Visit [facility] [address] [facility] [address] [place] [address] Terence Blum MD [address] [facility] [address] [place] [address] 06/21/2025 8:00 AM ESTOffice Visit [facility] [address] [facility] [address] [place] [address] Kade Richardson MD [address] [facility] [address] [phone] 07/25/2025 11:00 AM ESTOffice Visit [facility] [address] [place] [phone] Cynthia English MD [address] [place] [address] Health MaintenanceDue DateLast DoneCommentsCOVID-19 Vaccine ( season) , 05/26/2021, 10/19/2020, Additional history existsInfluenza Vaccine (#1)01/22/20256400Xnjalmnvb87ap Smear06/06/2027 06/06/2024, 09/10/2022ervical Cancer Hkntuodki67/20/2028HPV/Hntndn2109/11/2027 Pneumococcal Vaccine: Pediatrics (0 to 5 Years) and At-Risk Patients (6 to 64 Years)Aged OutNo longer eligible based on patient's age to complete this topic Procedures Procedure NamePriorityDate/TimeAssociated DiagnosisCommentsUS VKTBGOR8403/22/2025 11:38 AM EDT AEROBIC ELPIDIO CHARGE (NMIC56)Aovuctz3303/02/2025 5:17 PM EDT ANAEROBIC JKCSYVPXinlhco25/10/2025 5:17 PM EDT AEROBIC GEPKIKNQljlqxs37/10/2025 5:17 PM EDT GRAM XREOCTjrfjzk33/10/2025 5:17 PM EDT GENERAL FXQPOZXGTChotokb09/10/2025 11:32 AM EDTBI US BREAST LIMITED LEFTRoutine 01/26/2025 12:14 PM EDT Other benign mammary dysplasias of left breast PAP JZJWDGpsjcyp65/14/2025 12:00 AM ESTMM TOMOSYNTHESIS DIAGNOSTIC BI04/07/2024 8:40 AM EST from Last 3 Months or Most Recently Relevant to Health Maintenance Results * US thyroid (03/22/2025 11:38 AM EDT)Anatomical RegionLateralityModalityHead, NeckUltrasoundSpecimen (Source)Anatomical Location / LateralityCollection Method / VolumeCollection TimeReceived Time03/22/2025 11:38 AM EDT Narrative 03/22/2025 11:41 AM EDT [facility] ?[address] ? [place] [address] ? Ultrasound Report ? Signed ? Patient: JONES PANIAGUA ?MR#: [id number] ?? : 1980 ?Acct:[id number] ?? Age/Sex: 44 / F ?ADM Date: 03/22/25 ?? Loc: US ? Attending Dr: Mary Grace Barfield M.D. ? Ordering Physician: Mary Grace Barfield M.D. ?? Date of Service: 03/22/25 ?? Procedure(s): US thyroid ?? Accession Number(s): [id number] ? cc: GAY ENCISO ; Mary Grace Barfield M.D. ? [facility] ? [address] [facility] ? [place] [address] ? Patient Name: ?? JONES PANIAGUA ? MRN: [facility]:[id number] ? date: 1980 ?Sex: F ?? Assigned Patient Location: US ?? Current Patient Location: RAD ?? Accession/Order Number: [id number] ?? Exam Date: 03/22/2025 ??09:30 ?Report Date: 03/22/2025 ??11:38 ? At the request of: ?? MARY GRACE ??LICO ? Procedure: ??US thyroid ? THYROID ULTRASOUND ? CLINICAL DATA: Follow-up nodularity ? COMPARISON: 08/24/2024 ? The right thyroid lobe measures 4.8 x 2.2 x 2.1 cm . Left lobe measures 4.1 x ?? 1.4 x 1.8 cm. ??The isthmus measures 3 - 4 mm. There is a heterogeneous ?? echogenicity. ??On the right, no discrete nodules are measured. ??On the left at ?? the inferior pole, there is a nodule measuring 9 x 6 x 9 mm. ??This appears to ?? be a colloid cyst on today's study. ??This is not significantly changed. ??No ?? new nodularity is seen. ? US/US thyroid ?? IMPRESSION: ? LEFT COLLOID CYST, SIMILAR IN SIZE TO THE PRIOR. ? Impression dictated by: Simin Nelson M.D. ??03/22/2025 11:38 AM ? Dictation Location: [place] [address] ? Electronically authenticated by: [id number] ??Y ?? Date: 03/22/2025 ??11:38 ? Dictated By: ?Simin Nelson M.D. ? Signed By: ?03/22/25 1141 ? DD/ 1138 ? TD/TT: ? Customs And Border Protection Officer: Procedure Note Radiology, Radiologist, MD - 03/22/2025 [place] [address] Ultrasound Report Signed Patient: JONES PANIAGUA BMR#: [id number] : 1980Acct:[id number] Age/Sex: 44 / FADM Date: 03/22/25 Loc: US Attending Dr: Mary Grace Barfield M.D. Ordering Physician: Mary Grace Barfield M.D. Date of Service: 03/22/25 Procedure(s): US thyroid Accession Number(s): [id number] cc: GAY ENCISO ; Mary Grace Barfield M.D. The [address] [address] Patient Name: JONES PANIAGUA MRN: [facility]:[id number] date: 1980 Sex: F Assigned Patient Location: Current Patient Location: [facility] Accession/Order Number: [id number] Exam Date: 03/22/2025 09:30 Report Date: 03/22/2025 11:38 At the request of: MARY GRACE BARFIELD MD Procedure: US thyroid THYROID ULTRASOUND CLINICAL DATA: Follow-up nodularity COMPARISON: 08/24/2024 The right thyroid lobe measures 4.8 x 2.2 x 2.1 cm . Left lobe measures4.1 x 1.4 x 1.8 cm. The isthmus measures 3 - 4 mm. There is a heterogeneous echogenicity. On the right, no discrete nodules are measured. On theleft at the inferior pole, there is a nodule measuring 9 x 6 x 9 mm. This appearsto be a colloid cyst on today's study. This is not significantly changed.No new nodularity is seen. US/US thyroid IMPRESSION: LEFT COLLOID CYST, SIMILAR IN SIZE TO THE PRIOR. Impression dictated by: Simin Nelson M.D. 03/22/2025 11:38 AM Dictation Location: [place] [address] Electronically authenticated by: [id number] Y Date: 1:38 Dictated By: Simin Nelson M.D. Signed By:03/22/25 1141 DD/ 1138 TD/TT: Customs And Border Protection Officer: Authorizing ProviderResult TypeResult StatusHilary Mitch Barfield MDIMG US PROCEDURES Final Result * (ABNORMAL) AEROBIC ELPIDIO CHARGE (NMIC56) (03/02/2025 5:17 PM EDT)ComponentValue Ref RangeTest MethodAnalysis TimePerformed AtPathologist SignatureAMIKACIN<16 (S)03/04/2025 9:13 AM [facility] CtrAZTREONAM<4(I) 03/04/2025 9:13 AM [facility] CtrCEFEPIME<2(S)03/04/2025 9:13 AM [facility] CtrCEFTAZIDIME<1(I)03/04/2025 9:13 AM [facility] CtrCEFTAZIDIME/AVIBACTAM<4(S)03/04/2025 9:13 AM [facility] CtrCEFTOLOZANE/TAZOBACTAM<2(S)03/04/2025 9:13 AM [facility] CtrCEFTRIAXONE<1(I)03/04/2025 9:13 AM [facility] CtrCIPROFLOXACIN>2(R)03/04/2025 9:13 AM [facility] CtrERTAPENEM<0.5(S)03/04/2025 9:13 AM [facility] CtrGENTAMICIN<2(S)03/04/2025 9:13 AM [facility] CtrLEVOFLOXACIN<0.5(S)03/04/2025 9:13 AM [facility] CtrMEROPENEM<1(S)03/04/2025 9:13 AM [facility] Ctr MEROPENEM/VABORBACTAM<2(S)03/04/2025 9:13 AM [facility] Ctr PIPERACILLIN/TAZOBACTAM<8(I)03/04/2025 9:13 AM [facility] CtrTETRACYCLINE>8(R)03/04/2025 9:13 AM [facility]tr TIGECYCLINE<2(S)03/04/2025 9:13 AM [facility] CtrTOBRAMYCIN <2(S)03/04/2025 9:13 AM [facility] Ctr TRIMETHOPRIM/SULFAMETHOXAZOLE<0.5/9.5(S)03/04/2025 9:13 AM [facility] CtrSpecimen (Source)Anatomical Location / Laterality Collection Method / VolumeCollection TimeReceived TimeOtherSpecimen from uterine cervix / Nssbrmp6203/02/2025 5:17 PM EDT1 5:38 PM EDTComment: Abscess Narrative Authorizing ProviderResult TypeResult StatusAlbert Kulwant Pacheco MDFIRELANDSFinal ResultPerforming OrganizationAddressCity/State/ZIP CodePhone Number [facility] [address] [place] [address], [facility] [address] [place] [address] * ANAEROBIC CULTURE (03/02/2025 5:17 PM EDT)ComponentValueRef RangeTest Method Analysis TimePerformed AtPathologist SignatureFRMC ORGANISMPrevotella species 03/13/2025 12:54 PM [facility] CtrCOMMENTS.03/13/2025 12:54 PM [facility] CtrQUANTITY OF GROWTHLight Xaxxbm4003/13/2025 12:54 PM [facility] CtrSEND TEST TO REF. LABSent to [facility] for CHRISTIAN ID03/13/2025 12:54 PM [facility] CtrComment: Identification performed at: ??CB - [facility] [address] ??[id number] Hull Inspector: Doyle Mendenhall PhD, Phone: ??[phone] Please contact Microbiology within 7 days if anaerobic susceptibilities are needed. Specimen (Source)Anatomical Location / LateralityCollection Method / Volume Collection TimeReceived TimeOtherSpecimen from uterine cervix / Unknown 03/02/2025 5:17 PM EDT1 5:38 PM EDTComment:Abscess Narrative [facility] - 03/13/2025 12:54 PM EDT Comment pilonidal abscess culture Authorizing ProviderResult TypeResult StatusMARGOT Salcedo BLOOD ORDERABLESFinal ResultPerforming OrganizationAddressty/State/[facility] CodePhone Number [facility] [address] [place] [address], [facility] [address] [place] [address] * AEROBIC CULTURE (03/02/2025 5:17 PM EDT)ComponentValueRef RangeTest Method Analysis TimePerformed AtPathologist SignatureFRMC ORGANISMSerratia marcescens 03/04/2025 9:13 AM [facility] CtrQUANTITY OF GROWTHLight Mfcyaf3403/04/2025 9:13 AM [facility] CtrSpecimen (Source) Anatomical Location / LateralityCollection Method / VolumeCollection Time Received TimeOtherSpecimen from uterine cervix / Mpnamxh7803/02/2025 5:17 PM EDT 03/02/2025 5:38 PM EDTComment:Abscess Narrative [facility] - 03/13/2025 12:54 PM EDT Comment pilonidal abscess culture Authorizing ProviderResult TypeResult MARGOT Celaya BLOOD ORDERABLESFinal ResultPerforming OrganizationAddBut[facility] CodePhone Number [facility] [address] [place] [address], [facility] [address] [place] [address] * (ABNORMAL) Gram stain (03/02/2025 5:17 PM EDT)ComponentValueRef RangeTest MethodAnalysis TimePerformed AtPathologist SignatureGRAM STAIN1+ Gram Positive Cocci(A)03/03/2025 2:17 PM [facility] CtrGRAM STAIN2+ White Blood Cells(A)03/03/2025 2:17 PM EDTFMet[facility] CtrSpecimen (Source)Anatomical Location / LateralityCollection Method / VolumeCollection TimeReceived TimeOtherSpecimen from uterine cervix / Hmtycdy5203/02/2025 5:17 PM EDT1 5:38 PM EDTComment:Abscess Narrative [facility] - 03/13/2025 12:54 PM EDT Comment pilonidal abscess culture Authorizing ProviderResult TypeResult StatusMARGOT Salcedo MICROBIOLOGY - GENERAL ORDERABLESFinal ResultPerforming OrganizationAddressCity/State/ZIP CodePhone Number [facility] [address] [place] [address], [facility] [address] [place] [address] * GENERAL PATHOLOGY (03/02/2025 11:32 AM EDT) Narrative Authorizing ProviderResult TypeResult GIUSEPPE CelayaLINISYNCFinal Result * Left breast US limited (01/26/2025 [...] obvious adenopathy. Authorizing ProviderResult TypeResult StatusAmy Temo PAIMG US PROCEDURESFinal Result * Pap Smear (06/06/2024 12:00 AM EST)Specimen (Source)Anatomical Location / LateralityCollection Method / VolumeCollection TimeReceived TimeSwabCervical swab / Unknown Narrative Authorizing ProviderResult TypeResult StatusAmy Temo PALAB CYTOLOGY ORDERABLES Final ResultPerforming OrganizationAddressCity/State/ZIP CodePhone Number EXTERNAL LAB * MM TOMOSYNTHESIS DIAGNOSTIC BI (04/07/2024 8:40 AM EST)Anatomical Region LateralityModalityOtherSpecimen (Source)Anatomical Location / Laterality Collection Method / VolumeCollection TimeReceived Time04/07/2024 8:40 AM EST Narrative 04/07/2024 8:41 AM EST [facility] ?[address] ? [place] [address] ? Mammography Report ? Signed ? Patient: TERAJONES B ?MR#: [id number] ?? : 1980 ?Acct:[id number] ?? Age/Sex: 43 / F ?ADM Date: 04/06/24 ?? Loc: US ? Attending Dr: Luan Valdivia D.O. ? Ordering Physician: Luan Valdivia D.O. ?Results: ? Date of Service: 04/06/24 ?Follow Up: ? Procedure(s): MM tomosynthesis diagnostic BI ?? Accession Number(s): [id number] ? cc: GAY ENCISO ; Luan Valdivia D.O. ? Patient Name: ? JONES PANIAGUA ? MR#: [id number] ? : 1980 ? Exam Date: 04/06/2024 [...] ?? age 56. ? LOCATION: ? [facility] ? BREAST COMPOSITION: ? There are [...] 0841 ? DD/ 0840 ? TD/TT: ? Customs And Border Protection Officer: Procedure Note Radiology, Radiologist, MD - 04/07/2024 [place] [address] Mammography Report Signed Patient: JONES PANIAGUA BMR#: [id number] : 1980Acct:[id number] Age/Sex: 43 / FADM Date: 04/06/24 Loc: US Attending Dr: Luan Valdivia D.O. Ordering Physician: Luan Valdivia D.O.Results: Date of Service: 04/06/24Follow Up: Procedure(s): MM tomosynthesis diagnostic BI Accession Number(s): [id number] cc: GAY ENCISO ; Luan Valdivia D.O. Patient Name: JONES PANIAGUA MR#: [id number] : 1980 Exam Date: 04/06/2024 Ordering Doctor: DR Luan Valdivia . RADIOLOGY REPORT PROCEDURE: MM TOMOSYNTHESIS DIAGNOSTIC BI, 04/06/2024, 15:20 US BREAST BI LIMITED, 04/06/2024, 15:37 COMPARISON: MM TOMOSYNTHESIS SCREENING BI, 09/23/2023. MG MAMM GBATGZ5Q MARK CAD, 09/01/2022. MG MAMM SCREEN 3D [...] stomach cancer at age 56. LOCATION: [facility] BREAST COMPOSITION: There are scattered areas [...] Vito Yusuf M.D. Signed By:04/07/24 0841 DD/ TD/TT: Customs And Border Protection Officer: Authorizing ProviderResult TypeResult StatusCorey Skip DOCLINISYNC IMAGINGFinal Result from Last 3 Months or Most Recently Relevant to Health Maintenance Insurance Care Teams Team MemberRelationshipSpecialtyStart DateEnd Date Gay Enciso MD [address] [place], [place] [id number] Referring PhysicianFamily Medicine07/18/24
--- OUTSIDE RECORDS SUMMARY | 2025-04-05 18:47 | XMS_ITS | Patient Health Record ---
Author Organization [facility] in [place] Address [address] [place] [address] Care Team Providers Care Licensed Occupational Therapy Assistant Name Role Phone Britt Gay Primary Care Provider Víctor Klein [phone] Allergies Allergen (clinical drug ingredient) Drug/Non Drug Allergy documented on EMR Reaction Allergy Type Onset Date Status sulfamethoxazole / trimethoprim Bactrim GI upset Drug Allergy ActivecodeineCodeinejitteryDrug AllergyActiveLatexLatexrashAllergyActive Substance with sulfonamide structure and antibacterial mechanism of action (substance)Sulfa AntibioticsswellingDrug AllergyActiveclindamycinClindamycin unknownDrug AllergyActivetrimethoprimTrimethoprimunknownDrug AllergyActive Results Component Value Reference Range Notes H. pylori Stool Ag, EIA Reviewed date:10/26/2024 09:21:53 AM Interpretation: Performing Lab: Notes/Report: STOOL [facility] , H. pylori Stool Ag, EIA Negative Negative Performed at: CB - [facility] [address] [id number] Geographic Information Systems Manager: Doyle Mendenhall PhD, Phone: [phone] Performing Lab: see note LC - [facility] LBLACTATE or LACTIC ACID Reviewed date:02/27/2025 08:35:01 AM Interpretation: Performing Lab: Notes/Report: [facility] ,Lactate/Lactic Acid3.20.4-2.0 mmol/LRESULTS CALLED TO MONICA MORA LPN at 1655 Performing Lab:see noteML - [facility] LBGLYCOHEMOGLOBIN A1C Reviewed date:02/26/2025 09:22:15 AM Interpretation: Performing Lab: Notes/Report: [facility] ,Glycohemoglobin A1C8.34.5-6.2 % ADA RECOMMENDED LIMIT 4.0 - 6.0 ADA THERAPEUTIC TARGET < 7.0 ACTION SUGGESTED > 7.0 Estimated Average Acvsixb229Lnkvygziao Lab:see noteML - [facility] LB CBC AUTO DIFF Reviewed date:02/27/2025 04:34:12 PM Interpretation: Performing Lab: Notes/Report: [facility] ,White Blood Count10.24.0-11.0 10 3/uLRed Blood Count4.094.20-5.40 10 6/uL Yqbwbrobvh07.112.0-16.0 g/wOHzdyluhkzw89.536.0-48.0 %Mean Corpuscular Oyqxiv98.6 81.0-99.0 fLMean Corpuscular Plracbyguz26.026.7-34.0 pgMean Corpuscular HGB Conc 33.229.9-35.2 g/dLRed Cell Distribution Width14.011.0-15.0 %Platelet Mrfur561 150-450 10 3/uLMean Platelet Ycngrw12.79.5-13.5 fLNeutrophils Percent Auto74.4 43.0-75.0 %Lymphocytes Percent Auto17.220.5-60.0 %Monocytes Percent Auto5.71.7- 12.0 %Eosinophils Percent Auto0.70.9-7.0 %Basophils Percent Auto0.60.2-2.0 % Immature Granulocytes Pct Auto1.40.0-0.5 %Neutrophils Absolute Auto7.61.4-6.5 10 3/uLLymphocytes Absolute Auto1.81.2-3.8 10 3/uLMonocytes Absolute Auto0.60.3-0.8 10 3/uLEosinophils Absolute Auto0.10.0-0.7 10 3/uLBasophils Absolute Auto0.10.0- 0.1 10 3/uLImmature Granulocytes Abs Auto0.140.00-0.03 10 3/uLPerforming Lab:see noteML - [facility] LBLACTATE or LACTIC ACID Reviewed date:02/27/2025 04:34:12 PM Interpretation: Performing Lab: Notes/Report: [facility] ,Lactate/Lactic Acid2.10.4-2.0 mmol/LRESULTS CALLED TO Adriel SAM Lab:see noteML - [facility] LBLACTATE or LACTIC ACID Reviewed date:03/02/2025 12:05:01 PM Interpretation: Performing Lab: Notes/Report: N [facility] ,Lactate/Lactic Acid2.10.4-2.0 mmol/LRESULTS CALLED TO Gay Muñozg Lab:see noteML - [facility] LBCBC AUTO DIFF Reviewed date:04/06/2024 03:52:49 PM Interpretation: Performing Lab: Notes/Report: [facility] ,White Blood Count11.44.0-11.0 10 3/uLRed Blood Count4.214.20-5.40 10 6/uL Olhxssrjgy46.012.0-16.0 g/qDGzzrqgdxjt19.736.0-48.0 %Mean Corpuscular Edvqdr73.3 81.0-99.0 fLMean Corpuscular Wgesoizmut34.926.7-34.0 pgMean Corpuscular HGB Conc 32.729.9-35.2 g/dLRed Cell Distribution Width15.111.0-15.0 %Platelet Scuqt239 150-450 10 3/uLMean Platelet Nxclof80.19.5-13.5 fLNeutrophils Percent Auto73.2 43.0-75.0 %Lymphocytes Percent Auto18.420.5-60.0 %Monocytes Percent Auto6.71.7- 12.0 %Eosinophils Percent Auto0.40.9-7.0 %Basophils Percent Auto0.40.2-2.0 % Immature Granulocytes Pct Auto0.90.0-0.5 %Neutrophils Absolute Auto8.31.4-6.5 10 3/uLLymphocytes Absolute Auto2.11.2-3.8 10 3/uLMonocytes Absolute Auto0.80.3-0.8 10 3/uLEosinophils Absolute Auto0.10.0-0.7 10 3/uLBasophils Absolute Auto0.10.0- 0.1 10 3/uLImmature Granulocytes Abs Auto0.100.00-0.03 10 3/uLPerforming Lab:see noteML - [facility] LBFREE T4 Reviewed date:04/07/2024 08:30:55 AM Interpretation: Performing Lab: Notes/Report: [facility] ,Free T41.010.76-1.46 ng/dLPerforming Lab:see note - [facility] LB GLYCOHEMOGLOBIN A1C Reviewed date:04/07/2024 08:30:55 AM Interpretation: Performing Lab: Notes/Report: [facility] ,Glycohemoglobin A1C6.34.5-6.2 % ADA RECOMMENDED LIMIT 4.0 - 6.0 ADA THERAPEUTIC TARGET < 7.0 ACTION SUGGESTED > 7.0 Estimated Average Jhwgwkz353Ebyowwmosf Lab:see note - [facility] LB PREG QUANT HCG Reviewed date:04/06/2024 03:52:49 PM Interpretation: Performing Lab: Notes/Report: [facility] ,HCG Quantitative<1 5-50 0.2-1 WEEK 50-500 1-2 WEEKS 100-5,000 2-3 WEEKS 500-10,000 3-4 WEEKS 1,000-50,000 4-5 WEEKS 10,000-100,000 5-6 WEEKS 15,000-200,000 6-8 WEEKS 10,000-100,000 2-3 MONTHS Performing Lab:see note - [facility] LBPTT Reviewed date:04/06/2024 03:52:49 PM Interpretation: Performing Lab: Notes/Report: [facility] ,Partial Thromboplastin Time25.622.3-36.2 secPerforming Lab:see noteML - [facility] LBTSH Reviewed date:04/06/2024 03:52:49 PM Interpretation: Performing Lab: Notes/Report: [facility] ,Thyroid Stimulating Hormone0.3330.358-3.740 uIU/mLPerforming Lab:see note - [facility] LBProthrombin Time INR Reviewed date:04/06/2024 03:52:49 PM Interpretation: Performing Lab: Notes/Report: [facility] ,Prothrombin Time9.69.0-11.6 secINR<0.93 DESIRED INR: 2.0-3.0 CONDITIONS NOT LISTED BELOW 2.5-3.5 FOR PROSTHETIC HEART VALVE REPLACEMENT 2.5-3.5 RECURRENT THROMBOSIS Performing Lab:see noteML - [facility] LBUS pelvis w/ transvaginal Reviewed date:04/07/2024 08:29:59 AM Interpretation: Performing Lab: Notes/Report: Source Facility: [facility]-[address] [place] [address] Ultrasound Report Signed Patient: JONES PANIAGUA MR#: [id number] : 1980 Acct:[id number] Age/Sex: 43 / F ADM Date: 04/06/24 Loc: LAB Attending Dr: Oly Parnell Ordering Physician: Oly Parnell Date of Service: 04/06/24 Procedure(s): US pelvis w/ transvaginal Accession Number(s): [id number] cc: Oly Parnell; GAY ENCISO [place] [address] Patient Name: JONES PANIAGUA MRN: [id number] date: 1980 Sex: F Assigned Patient Location: LAB Current Patient Location: Accession/Order Number: [id number] Exam Date: 04/06/2024 15:45 Report Date: 04/07/2024 [...] Dictated By: Vito Yusuf M.D. Signed By: 04/07/24450 DD/ 7 TD/TT: [employer] Stock Clerk:IGPAptima HPV,Age Gdln Reviewed date:06/12/2024 03:56:26 PM Interpretation: Performing Lab: Notes/Report: BRUSH-SPATULA CERVIX ENDOCERVIX [facility] ,Age Gdln ACOG TestingNote. TESTS RESULT FLAG UNITS REF RANGE LAB Clinician Provided Cytology Information Source.............Cervix;Endocervix No. of containers..01 ThinPrep Vial Age Algo ACOG Vicky... 30-65 01 FLAG LEGEND: L-Low Normal,H-High Normal,LL-Alert Low,HH-Alert High <-Panic Low,>-Panic High,A-Abnormal,AA-Critical Abnormal Performed at: 01 =G [facility] [address] [place] [address] Aparna Solorzano MD, IGP, Aptima HPV, rfx 16/18,45Note. TESTS RESULT FLAG UNITS REF RANGE LAB DIAGNOSIS: 02 NEGATIVE FOR INTRAEPITHELIAL LESION OR MALIGNANCY. Specimen adequacy: 02 Satisfactory for evaluation. Endocervical and/or squamous metaplastic cells (endocervical component) are present. Performed by: 02 Kenzie Kam, Manager Site ([facility]) . 02 Note: Note 02 The Pap [...] Abnormal Performed at: 02 WB [facility] [address] [place] [address] Aparna Solorzano MD, HPV AptimaNegativeNegative This nucleic acid amplification test detects fourteen high- risk HPV types (16,18,31,33,35,39,45,51,52,56,58,59,66,68) without differentiation. Performed at: =G - [facility] [address] [id number] Geographic Information Systems Manager: Aparna Solorzano MD, Phone: [phone] Performed at: [address] [place], [place] [id number] Geographic Information Systems Manager: Aparna Solorzano MD, Phone: [phone] Performing Lab:see [facility] LBINSULIN Reviewed date:08/15/2024 01:02:11 PM Interpretation: Performing Lab: Notes/Report: [facility] ,Rkrnytg28.12.6-24.9 uIU/mL Performed at: [address] [id number] Geographic Information Systems Manager: Doyle Mendenhall PhD, Phone: [phone] Performing [facility] LBIRON Reviewed date:08/08/2024 02:48:03 PM Interpretation: Performing Lab: Notes/Report: [facility] ,Edkb044.050.0-170.0 ug/dLPerforming Lab:see note - [facility] LB Vitamin B12 Reviewed date:08/15/2024 01:02:11 PM Interpretation: Performing Lab: Notes/Report: [facility] ,Vitamin W05235583-8928 pg/mL Performed at: [address] [id number] Geographic Information Systems Manager: Doyle Mendenhall PhD, Phone: [phone] Performing Lab:see [facility] LBUS THYROID Reviewed date:08/27/2024 09:41:57 PM Interpretation: Performing Lab: Notes/Report: Source Facility: [place] [address] Ultrasound Report Signed Patient: JONES PANIAGUA MR#: [id number] : 1980 Acct:[id number] Age/Sex: 43 / F ADM Date: 08/24/24 Loc: US Attending Dr: Mary Grace Barfield M.D. Ordering Physician: Mary Grace Barfield M.D. Date of Service: 08/24/24 Procedure(s): US thyroid Accession Number(s): [id number] cc: GAY ENCISO ; Mary Grace Barfield M.D. [address] [address] Patient Name: JONES PANIAGUA MRN: [id number] date: 1980 Sex: F Assigned Patient Location: US Current Patient Location: US Accession/Order Number: [id number] Exam Date: 08/24/2024 09:09 Report Date: 08/24/2024 [...] this was thought to be cystic. The commercial driver's license driver today considered it solid and it was given TI-RADS 4 classification. No internal color flow is shown. Size has not significantly changed when measuring in a comparable manner. No other nodularity is seen. US/US thyroid IMPRESSION: SIMILAR SMALL LEFT THYROID NODULE. FOLLOW-UP IN ONE YEAR IS SUGGESTED. Impression dictated by: Simin Nelson M.D.08/24/2024 9:22 AM Dictation Location: [place] [address] Electronically authenticated by: [id number] Y Date: 08/24/2024 09:22 Dictated By: Simin Nelson M.D. Signed By: 08/24/2424 DD/ 1 TD/TT: [employer] Stock Clerk:E coli Shiga Toxin EIA Reviewed date:10/26/2024 03:06:58 PM Interpretation: Performing Lab: Notes/Report: [facility] ,E coli Shiga Toxin EIASee Below For Report E coli Shiga Toxin EIA E coli Shiga Toxin EIANegative E coli Shiga Toxin EIA E coli Shiga Toxin EIAPerformed at: [facility] E coli Shiga Toxin EIA E coli Shiga Toxin [id number] [place], [place] [id number] E coli Shiga Toxin EIA E coli Shiga Toxin EIALab Director: Doyle Mendenhall PhD, Phone: [phone] E coli Shiga Toxin EIA Performing Lab:see note LC - [facility] LB SEE REPORT - Sourcing Manager Id information not found for OBX-specific pattern grader cutter legend Salmonella/Shigella Screen Reviewed date:10/30/2024 12:57:59 PM Interpretation: Performing Lab: Notes/Report: [facility] ,Salmonella/Shigella ScreenSee Below For Report Salmonella/Shigella Screen Salmonella/Shigella ScreenNo Salmonella or Shigella recovered. Salmonella/Shigella Screen Performing Lab:see noteLC - [facility] LBE coli Shiga Toxin EIA Reviewed date:10/30/2024 12:57:59 PM Interpretation: Performing Lab: Notes/Report: [facility] ,E coli Shiga Toxin EIASee Below For Report E coli Shiga Toxin EIA E coli Shiga Toxin EIANegative E coli Shiga Toxin EIA E coli Shiga Toxin EIAPerformed at: [facility] E coli Shiga Toxin EIA E coli Shiga Toxin [id number] [place], [place] [id number] E coli Shiga Toxin EIA E coli Shiga Toxin EIALab Director: Doyle Mendenhall PhD, Phone: [phone] E coli Shiga Toxin EIA Performing Lab:see note LC - [facility] LB SEE REPORT - Sourcing Manager Id information not found for OBX-specific pattern grader cutter legend CBC AUTO DIFF Reviewed date:02/26/2025 09:22:15 AM Interpretation: Performing Lab: Notes/Report: [facility] ,White Blood Count10.84.0-11.0 10 3/uLRed Blood Count4.394.20-5.40 10 6/uL Smxeqfbxla96.312.0-16.0 g/dVBwyxrzixxe95.336.0-48.0 %Mean Corpuscular Hbstqz44.4 81.0-99.0 fLMean Corpuscular Apsipbfhkl88.626.7-34.0 pgMean Corpuscular HGB Conc 33.829.9-35.2 g/dLRed Cell Distribution Width14.011.0-15.0 %Platelet Xultm456 150-450 10 3/uLMean Platelet Rarhqh22.49.5-13.5 fLNeutrophils Percent Auto79.7 43.0-75.0 %Lymphocytes Percent Auto12.520.5-60.0 %Monocytes Percent Auto5.21.7- 12.0 %Eosinophils Percent Auto0.60.9-7.0 %Basophils Percent Auto0.60.2-2.0 % Immature Granulocytes Pct Auto1.40.0-0.5 %Neutrophils Absolute Auto8.61.4-6.5 10 3/uLLymphocytes Absolute Auto1.41.2-3.8 10 3/uLMonocytes Absolute Auto0.60.3-0.8 10 3/uLEosinophils Absolute Auto0.10.0-0.7 10 3/uLBasophils Absolute Auto0.10.0- 0.1 10 3/uLImmature Granulocytes Abs Auto0.150.00-0.03 10 3/uLPerforming Lab:see note - [facility] LBLACTATE or LACTIC ACID Reviewed date:02/26/2025 09:22:15 AM Interpretation: Performing Lab: Notes/Report: [facility] ,Lactate/Lactic Acid3.30.4-2.0 mmol/L RESULTS CALLED TO LISA Patel RN @BY Cresencio Odom MLT at 0037 Performing Lab:see note - [facility] LBPROF CHEM 8 (BAS METB) Reviewed date:02/26/2025 09:22:15 AM Interpretation: Performing Lab: Notes/Report: [facility] ,Mmffks669195-763 mmol/LPotassium4.23.5-5.1 mmol/COqlecabq57719-802 mmol/LCarbon Oiagqop09.121.0-32.0 mmol/LAnion Gap20.7Uvhsxbc91572-414 mg/dLBlood Urea Dxlydzoy04.07.0-18.0 mg/dLCreatinine0.810.55-1.02 mg/dLEstimated GFR ( Cindi>60>=60 mL/min/1.73m 2Estimated GFR (Non- Coretta>60>=60 mL/min/1.73m 2BUN Creatinine Ratio21.7Yucquvk9.38.5-10.1 mg/dLPerforming Lab:see noteML - [facility] LBE coli Shiga Toxin EIA Reviewed date:03/05/2025 08:44:56 AM Interpretation: Performing Lab: Notes/Report: [facility] ,E coli Shiga Toxin EIASee Below For Report E coli Shiga Toxin EIA WILL FOLLOW E coli Shiga Toxin EIANegative E coli Shiga Toxin EIA WILL FOLLOW E coli Shiga Toxin EIAPerformed at: [facility] E coli Shiga Toxin EIA WILL FOLLOW E coli Shiga Toxin [id number] [place], [place] [id number] E coli Shiga Toxin EIA WILL FOLLOW E coli Shiga Toxin EIALab Director: Doyle Mendenhall PhD, Phone: [phone] E coli Shiga Toxin EIA WILL FOLLOW Performing Lab:see note LC - [facility] LB SEE REPORT - Sourcing Manager Id information not found for OBX-specific pattern grader cutter legend Salmonella/Shigella Screen Reviewed date:03/05/2025 08:44:56 AM Interpretation: Performing Lab: Notes/Report: [facility] ,Salmonella/Shigella ScreenSee Below For Report Salmonella/Shigella Screen Salmonella/Shigella ScreenNo Salmonella or Shigella recovered. Salmonella/Shigella Screen Performing Lab:see noteLC - [facility] LBCampylobacter Culture Reviewed date:03/05/2025 08:44:56 AM Interpretation: Performing Lab: Notes/Report: [facility] ,Campylobacter CultureSee Below For Report Campylobacter Culture No Campylobacter species isolated. Performing Lab:see noteLC - [facility] LBHCG Qualitative* Reviewed date:02/26/2025 09:22:15 AM Interpretation: Performing Lab: Notes/Report: [facility] ,HCG QualitativeNEGATIVENEGATIVEPerforming Lab:see noteML - [facility] LBCBC AUTO DIFF Reviewed date:02/27/2025 08:35:01 AM Interpretation: Performing Lab: Notes/Report: [facility] ,White Blood Count11.64.0-11.0 10 3/uLRed Blood Count4.314.20-5.40 10 6/uL Aaiatgnvsu21.912.0-16.0 g/sNLilbhlxkem87.336.0-48.0 %Mean Corpuscular Txyctt16.8 81.0-99.0 fLMean Corpuscular Cnwjwrteac26.326.7-34.0 pgMean Corpuscular HGB Conc 33.729.9-35.2 g/dLRed Cell Distribution Width13.911.0-15.0 %Platelet Tcsis775 150-450 10 3/uLMean Platelet Apyhhx91.19.5-13.5 fLNeutrophils Percent Auto69.0 43.0-75.0 %Lymphocytes Percent Auto20.620.5-60.0 %Monocytes Percent Auto7.11.7- 12.0 %Eosinophils Percent Auto1.20.9-7.0 %Basophils Percent Auto0.50.2-2.0 % Immature Granulocytes Pct Auto1.60.0-0.5 %Neutrophils Absolute Auto8.01.4-6.5 10 3/uLLymphocytes Absolute Auto2.41.2-3.8 10 3/uLMonocytes Absolute Auto0.80.3-0.8 10 3/uLEosinophils Absolute Auto0.10.0-0.7 10 3/uLBasophils Absolute Auto0.10.0- 0.1 10 3/uLImmature Granulocytes Abs Auto0.190.00-0.03 10 3/uLPerforming Lab:see noteML - [facility] LBLIPASE Reviewed date:02/27/2025 08:35:01 AM Interpretation: Performing Lab: Notes/Report: [facility] ,Ofvuld28.016.0-77.0 U/LPerforming Lab:see noteML - [facility] LB MAGNESIUM Reviewed date:02/27/2025 08:35:01 AM Interpretation: Performing Lab: Notes/Report: [facility] ,Magnesium1.71.8-2.4 mg/dLPerforming Lab:see noteML - [facility] LB PROF 14(COMP METB) Reviewed date:02/27/2025 08:35:01 AM Interpretation: Performing Lab: Notes/Report: [facility] ,Gkjtii374422-984 mmol/LPotassium3.73.5-5.1 mmol/JSxaofftd88612-234 mmol/LCarbon Ywstsuy77.421.0-32.0 mmol/LAnion Gap18.1Dxzbbir73904-469 mg/dLBlood Urea Ekyjxhjb52.07.0-18.0 mg/dLCreatinine0.760.55-1.02 mg/dLEstimated GFR ( Cindi>60>=60 mL/min/1.73m 2Estimated GFR (Non- Coretta>60>=60 mL/min/1.73m 2BUN Creatinine Ratio14.3Zqrtlbv2.18.5-10.1 mg/dLBilirubin Total0.20.2-1.0 mg/dL Aspartate Amino Tkblqusolje2580-32 U/LAlanine Lhjzhelhmhldvuus5025-80 U/L Alkaline Lvilaemprat6316-025 U/LTotal Protein7.96.4-8.2 g/dLAlbumin Level3.23.4- 5.0 g/dLGlobulin4.7Albumin Globulin Ratio0.7Performing Lab:see note - [facility] LBBlood Culture 1 Reviewed date:03/05/2025 08:44:56 AM Interpretation: Performing Lab: Notes/Report: RIGHT [facility] ,Blood Culture 1See Below For Report Blood Culture 1 NG5D NO GROWTH AT 5 DAYS.^NO GROWTH AT 5 DAYS. Performing Lab:see note - [facility] LBBlood Culture 2 Reviewed date:03/05/2025 08:44:56 AM Interpretation: Performing Lab: Notes/Report: LEFT [facility] ,Blood Culture 2See Below For Report Blood Culture 2 NG5D NO GROWTH AT 5 DAYS.^NO GROWTH AT 5 DAYS. Performing Lab:see [facility] LBC. Difficile PCR Reviewed date:02/27/2025 08:35:01 AM Interpretation: Performing Lab: Notes/Report: [facility] ,C. Difficile PCRNEGATIVEPerforming Lab:see [facility] LBUA Micro, reflex to culture Reviewed date:02/27/2025 08:35:01 AM Interpretation: Performing Lab: Notes/Report: [facility] ,Color UrineLT. YELLOWYELLOWClarity UrineCLEARCLEARSpecific [place] Urine1.025 1.005-1.025pH Urine5.55.0-9.0Protein UrineNEGATIVENEG/TRACE mg/dLGlucose Urine UANEGATIVENEGATIVE mg/dLBilirubin UrineNEGATIVENEGATIVEKetones UrineNEGATIVE NEGATIVE mg/dLBlood UrineNEGATIVENEGATIVENitrite UrineNEGATIVENEGATIVE Urobilinogen Urine0.20.2-1.0 EU/dLLeukocyte Esterase UrineTRACENEGATIVEWBC Urine 2-5NONE SEEN #/HPFRBC Urine2-50-2 #/HPFBacteria UrineSMALLNONE SEEN #/HPFMucus UrineNONE SEENNONE SEENSquamous Epithelial Cell UrineFEWNONE/RARE #/LPFCrystals Seen?None SeenNone Seen #/HPFCast Seen?NONE SEENNONE SEEN #/LPFUrine Culture IndicatedYES-FRMCPerforming Lab:see noteML - [facility] LBUrine Culture - [facility] Reviewed date:03/01/2025 03:16:08 PM Interpretation: Performing Lab: Notes/Report: [facility] ,Urine Culture - FRMCSee Below For Report Urine Culture - [facility] 20,000 colonies/ml mixed bacterial skin contaminants Urine Culture - FRMCincluding gram negative bacilli - 2 Days Urine Culture - [facility] 20,000 colonies/ml mixed bacterial skin contaminants Urine Culture - [facility] Urine Culture - [facility] 20,000 colonies/ml mixed bacterial skin contaminants Urine Culture - [facility]esting [facility] Urine Culture - [facility] 20,000 colonies/ml mixed bacterial skin contaminants Urine Culture - [id number] [place] [address] Urine Culture - [facility] 20,000 colonies/ml mixed bacterial skin contaminants Performing Lab:see noteML - [facility] LBPROF 14(COMP METB) Reviewed date:02/27/2025 08:35:01 AM Interpretation: Performing Lab: Notes/Report: [facility] ,Skrbbf074549-489 mmol/LPotassium3.53.5-5.1 mmol/ZJnlzejbc50901-555 mmol/LCarbon Xeyymxo12.321.0-32.0 mmol/LAnion Gap15.7Gbgcisr57426-932 mg/dLBlood Urea Nitrogen9.07.0-18.0 mg/dLCreatinine0.660.55-1.02 mg/dLEstimated GFR ( Cindi>60>=60 mL/min/1.73m 2Estimated GFR (Non- Coretta>60>=60 mL/min/1.73m 2BUN Creatinine Ratio13.8Ordrcbo9.78.5-10.1 mg/dLBilirubin Total0.20.2-1.0 mg/dL Aspartate Amino Hbyzmqvkude8906-85 U/LAlanine Wxuuokuzrroregxv7907-37 U/L Alkaline Mbuyollwbgw9667-243 U/LTotal Protein7.76.4-8.2 g/dLAlbumin Level3.33.4- 5.0 g/dLGlobulin4.4Albumin Globulin Ratio0.8Performing Lab:see noteML - [facility] LBPROF 14(COMP METB) Reviewed date:02/27/2025 04:34:12 PM Interpretation: Performing Lab: Notes/Report: [facility] ,Xisncg481966-436 mmol/LPotassium3.83.5-5.1 mmol/FNzeibdor41494-645 mmol/LCarbon Awtjrit52.421.0-32.0 mmol/LAnion Gap14.0Vvigjfk76096-566 mg/dLBlood Urea Xrocbhco81.07.0-18.0 mg/dLCreatinine0.610.55-1.02 mg/dLEstimated GFR ( Cindi>60>=60 mL/min/1.73m 2Estimated GFR (Non- Coretta>60>=60 mL/min/1.73m 2BUN Creatinine Ratio21.4Qflidji5.08.5-10.1 mg/dLBilirubin Total0.20.2-1.0 mg/dL Aspartate Amino Xklnwgejjvo514-79 U/LAlanine Vngpxsdrfzfgwyya1616-65 U/LAlkaline Afjbaahobpu3617-030 U/LTotal Protein7.46.4-8.2 g/dLAlbumin Level3.03.4-5.0 g/dL Globulin4.4Albumin Globulin Ratio0.7Performing Lab:see noteML - [facility] LBCBC AUTO DIFF Reviewed date:03/05/2025 08:44:56 AM Interpretation: Performing Lab: Notes/Report: [facility] ,White Blood Count10.34.0-11.0 10 3/uLRed Blood Count4.254.20-5.40 10 6/uL Dwhqjtuqux58.612.0-16.0 g/jSIowqzczbnh90.936.0-48.0 %Mean Corpuscular Hpfdrw64.2 81.0-99.0 fLMean Corpuscular Mkrlhkkkmy69.026.7-34.0 pgMean Corpuscular HGB Conc 33.329.9-35.2 g/dLRed Cell Distribution Width14.111.0-15.0 %Platelet Zscpe570 150-450 10 3/uLMean Platelet Zpasyn27.49.5-13.5 fLNeutrophils Percent Auto74.0 43.0-75.0 %Lymphocytes Percent Auto16.620.5-60.0 %Monocytes Percent Auto6.61.7- 12.0 %Eosinophils Percent Auto0.90.9-7.0 %Basophils Percent Auto0.50.2-2.0 % Immature Granulocytes Pct Auto1.40.0-0.5 %Neutrophils Absolute Auto7.71.4-6.5 10 3/uLLymphocytes Absolute Auto1.71.2-3.8 10 3/uLMonocytes Absolute Auto0.70.3-0.8 10 3/uLEosinophils Absolute Auto0.10.0-0.7 10 3/uLBasophils Absolute Auto0.10.0- 0.1 10 3/uLImmature Granulocytes Abs Auto0.140.00-0.03 10 3/uLPerforming Lab:see noteML - [facility] LBPROF CHEM 8 (BAS METB) Reviewed date:03/05/2025 08:44:56 AM Interpretation: Performing Lab: Notes/Report: [facility] ,[id number] mmol/LPotassium4.03.5-5.1 mmol/UHhvnozri77551-503 mmol/LCarbon Fewuydm18.121.0-32.0 mmol/LAnion Gap18.2Wqeebpi48477-693 mg/dLBlood Urea Nitrogen8.07.0-18.0 mg/dLCreatinine0.610.55-1.02 mg/dLEstimated GFR ( Cindi>60>=60 mL/min/1.73m 2Estimated GFR (Non- Coretta>60>=60 mL/min/1.73m 2BUN Creatinine Ratio13.8Raxfbge1.88.5-10.1 mg/dLPerforming Lab:see noteML - [facility] LBUA RANDOM W or MICROSCOPIC Reviewed date:03/05/2025 08:44:56 AM Interpretation: Performing Lab: Notes/Report: [facility] ,Color UrineLT. YELLOWYELLOWClarity UrineCLEARCLEARSpecific [place] Urine>=1.030 1.005-1.025pH Urine6.05.0-9.0Protein UrineTRACENEG/TRACE mg/dLGlucose Urine UA 250NEGATIVE mg/dLBilirubin UrineNEGATIVENEGATIVEKetones UrineNEGATIVENEGATIVE mg/dLBlood UrineNEGATIVENEGATIVENitrite UrineNEGATIVENEGATIVEUrobilinogen Urine 0.20.2-1.0 EU/dLLeukocyte Esterase UrineSMALLNEGATIVEWBC Urine5-10NONE SEEN #/HPFRBC Urine0-20-2 #/HPFBacteria UrineSMALLNONE SEEN #/HPFMucus UrineTRACENONE SEENSquamous Epithelial Cell UrineMANYNONE/RARE #/LPFCrystals Seen?None SeenNone Seen #/HPFCast Seen?NONE SEENNONE SEEN #/LPFUrine Culture IndicatedYES-FR Performing Lab:see noteML - [facility] LBUrine Culture - [facility] Reviewed date:03/09/2025 11:24:45 AM Interpretation: Performing Lab: Notes/Report: [facility] ,Urine Culture - FRMCSee Below For Report Urine Culture - [facility] Testing performed at [facility] O:CANALB Isolated Urine Culture - [facility] [place] Urine Culture - [id number] [place] [address] Urine Culture - [facility] Testing performed at [facility] O:CANALB Isolated Urine Culture - [facility] [place] Urine Culture - FRMCSee Below For Report Urine Culture - [facility] Testing performed at [facility] O:CANALB Isolated Urine Culture - [facility] [place] Urine Culture - FRMCSee Below For Report Urine Culture - [facility] Testing performed at [facility] O:CANALB Isolated Urine Culture - [facility] [place] Urine Culture - [facility]>100,000 Urine Culture - [facility] Testing performed at [facility] O:CANALB Isolated Urine Culture - [facility] [place] Performing Lab:see noteML - [facility] LBXR chest 1V Reviewed date:03/05/2025 08:44:56 AM Interpretation: Performing Lab: Notes/Report: Source Facility: [facility]-[address] [place] [address] [place] [address] XRay Report Signed Patient: JONES PANIAGUA MR#: [id number] : 1980 Acct:[id number] Age/Sex: 44 / F ADM Date: 03/03/25 Loc: ER Attending Dr: Ordering Physician: Zoe Lopez M.D. Date of Service: 03/03/25 Procedure(s): XR chest 1V Accession Number(s): [id number] cc: GAY ENCISO ; Zoe Lopez M.D. [place] [address] Patient Name: OJNES PANIAGUA MRN: [id number] date: 1980 Sex: F Assigned Patient Location: ER Current Patient Location: ER Accession/Order Number: [id number] Exam Date: 03/03/2025 16:20 Report Date: 03/03/2025 [...] Cox M.D. 03/03/2025 5:30 PM Dictation Location: [place] [address] Electronically authenticated by: [id number] Y Date: 03/03/2025 17:30 Dictated By: Rafal Cox M.D. Signed By: 03/03/25 173 DD/ 29 TD/TT: [employer] Stock Clerk:LACTATE or LACTIC ACID Reviewed date:03/05/2025 08:44:56 AM Interpretation: Performing Lab: Notes/Report: [facility] ,Lactate/Lactic Acid2.80.4-2.0 mmol/LRESULTS CALLED TO DR. Negreteforming Lab: see note - [facility] LBLACTATE or LACTIC ACID Reviewed date:03/06/2025 08:53:27 AM Interpretation: Performing Lab: Notes/Report: N [facility] ,Lactate/Lactic Acid2.20.4-2.0 mmol/LRESULTS CALLED TO MONICA MORA LPN at 1050 Performing Lab:see note - [facility] LBLACTATE or LACTIC ACID Reviewed date:03/08/2025 11:03:04 AM Interpretation: Performing Lab: Notes/Report: [facility] ,Lactate/Lactic Acid1.80.4-2.0 mmol/LPerforming Lab:see note - [facility] LBCBC AUTO DIFF Reviewed date:03/12/2025 08:33:57 AM Interpretation: Performing Lab: Notes/Report: [facility] ,White Blood Count12.24.0-11.0 10 3/uLRed Blood Count4.274.20-5.40 10 6/uL Cvkswunnkw09.612.0-16.0 g/hQIcrrpvkdsv60.436.0-48.0 %Mean Corpuscular Ukykrq23.0 81.0-99.0 fLMean Corpuscular Dpybzhphic67.926.7-34.0 pgMean Corpuscular HGB Conc 32.929.9-35.2 g/dLRed Cell Distribution Width14.111.0-15.0 %Platelet Fqltb336 150-450 10 3/uLMean Platelet Cheaft69.29.5-13.5 fLNeutrophils Percent Auto75.0 43.0-75.0 %Lymphocytes Percent Auto15.220.5-60.0 %Monocytes Percent Auto6.61.7- 12.0 %Eosinophils Percent Auto0.80.9-7.0 %Basophils Percent Auto0.40.2-2.0 % Immature Granulocytes Pct Auto2.00.0-0.5 %Neutrophils Absolute Auto9.21.4-6.5 10 3/uLLymphocytes Absolute Auto1.91.2-3.8 10 3/uLMonocytes Absolute Auto0.80.3-0.8 10 3/uLEosinophils Absolute Auto0.10.0-0.7 10 3/uLBasophils Absolute Auto0.10.0- 0.1 10 3/uLImmature Granulocytes Abs Auto0.240.00-0.03 10 3/uLPerforming Lab:see note - [facility] LBLACTATE or LACTIC ACID Reviewed date:03/05/2025 08:44:56 AM Interpretation: Performing Lab: Notes/Report: [facility] ,Lactate/Lactic Acid3.60.4-2.0 mmol/LRESULTS CALLED TO GAY Pazforming Lab:see note - [facility] LBLACTATE or LACTIC ACID Reviewed date:02/27/2025 08:35:01 AM Interpretation: Performing Lab: Notes/Report: [facility] ,Lactate/Lactic Acid2.30.4-2.0 mmol/L RESULTS CALLED TO OLY PATEL RN @BY Miroslava Aguilar at 1901 Performing Lab:see [facility] LBLACTATE or LACTIC ACID Reviewed date:03/12/2025 08:33:57 AM Interpretation: Performing Lab: Notes/Report: [facility] ,Lactate/Lactic Acid3.00.4-2.0 mmol/L RESULTS CALLED TO LISA Mckeon RN@BY Cresencio Odom MLT at 2333 Performing Lab:see [facility] - [facility] LBLACTATE or LACTIC ACID Reviewed date:03/12/2025 08:33:57 AM Interpretation: Performing Lab: Notes/Report: [facility] ,Lactate/Lactic Acid2.20.4-2.0 mmol/L RESULTS CALLED TO LISA Urbina RN @BY Cresencio Odom MLT at 0203 Performing Lab:see [facility] - [facility] LBPROF 14(COMP METB) Reviewed date:02/26/2025 09:22:15 AM Interpretation: Performing Lab: Notes/Report: [facility] ,Ynavhz673293-657 mmol/LPotassium3.83.5-5.1 mmol/AJxpyibvm78890-565 mmol/LCarbon Ppmffyd41.721.0-32.0 mmol/LAnion Gap16.2Sisyqnr15522-328 mg/dLBlood Urea Rkbsljyy08.07.0-18.0 mg/dLCreatinine0.710.55-1.02 mg/dLEstimated GFR ( Cindi>60>=60 mL/min/1.73m 2Estimated GFR (Non- Coretta>60>=60 mL/min/1.73m 2BUN Creatinine Ratio21.1Rswewoy0.88.5-10.1 mg/dLBilirubin Total0.30.2-1.0 mg/dL Aspartate Amino Pyyezcmmhtc0928-01 U/LAlanine Tgsdaxqvkjuozlul6182-50 U/L Alkaline Poxkkeocyha0044-051 U/LTotal Protein7.66.4-8.2 g/dLAlbumin Level3.13.4- 5.0 g/dLGlobulin4.5Albumin Globulin Ratio0.7Performing Lab:see note - [facility] LBLACTATE or LACTIC ACID Reviewed date:03/13/2025 08:32:42 AM Interpretation: Performing Lab: Notes/Report: N [facility] ,Lactate/Lactic Acid1.30.4-2.0 mmol/LPerforming Lab:see note - [facility] LBLACTATE or LACTIC ACID Reviewed date:03/15/2025 09:25:36 AM Interpretation: Performing Lab: Notes/Report: [facility] ,Lactate/Lactic Acid1.80.4-2.0 mmol/LPerforming Lab:see note - [facility] LBUS abdomen complete Reviewed date:01/01/2025 12:58:33 PM Interpretation: Performing Lab: Notes/Report: Source Facility: [facility]-[address] [place] [address] [place] [address] Ultrasound Report Signed Patient: JONES PANIAGUA MR#: [id number] : 1980 Acct:[id number] Age/Sex: 44 / F ADM Date: 12/30/24 Loc: US Attending Dr: Ingrid Portillo LANG PATH THERAPIST Ordering Physician: Ingrid Portillo NP Date of Service: 12/30/24 Procedure(s): US abdomen complete Accession Number(s): [id number] cc: GAY ENCISO ; Ingrid Portillo LANG PATH THERAPIST [place] [id number] Patient Name: JONES PANIAGUA MRN: [id number]:[id number] date: 1980 Sex: F Assigned Patient Location: US Current Patient Location: US Accession/Order Number: [id number] Exam Date: 12/30/2024 15:15 Report Date: 12/30/2024 [...] Jr., D.O. 12/30/2024 3:18 PM Dictation Location: [place] [address] Electronically authenticated by: [id number] Y Date: 12/30/2024 15:18 Dictated By: Karel Ricci M.D. Signed By: 12/30/24 1520 DD/ 1518 TD/TT: [employer] Stock Clerk:LACTATE or LACTIC ACID Reviewed date:03/22/2025 01:33:48 PM Interpretation: Performing Lab: Notes/Report: [facility] ,Lactate/Lactic Acid1.10.4-2.0 mmol/LPerforming Lab:see noteML - [facility] LBCampylobacter Culture Reviewed date:10/30/2024 12:57:59 PM Interpretation: Performing Lab: Notes/Report: [facility] ,Campylobacter CultureSee Below For Report Campylobacter Culture No Campylobacter species isolated. Performing Lab:see noteLC - [facility] LBC. Difficile PCR Reviewed date:10/25/2024 10:18:31 AM Interpretation: Performing Lab: Notes/Report: [facility] ,C. Difficile PCRNEGATIVEPerforming Lab:see noteML - [facility] LBUS THYROID Reviewed date:03/22/2025 01:33:48 PM Interpretation: Performing Lab: Notes/Report: Source Facility: [facility]-[address] [place] [address] [place] [address] Ultrasound Report Signed Patient: JONES PANIAGUA MR#: [id number] : 1980 Acct:[id number] Age/Sex: 44 / F ADM Date: 03/22/25 Loc: US Attending Dr: Mary Grace Barfield M.D. Ordering Physician: Mary Grace Barfield M.D. Date of Service: 03/22/25 Procedure(s): US thyroid Accession Number(s): [id number] cc: GAY ENCISO ; Mary Grace Barfield M.D. [place] [address] Patient Name: JONES PANIAGUA MRN: TBH:[id number] date: 1980 Sex: F Assigned Patient Location: Current Patient Location: [facility] Accession/Order Number: [id number] Exam Date: 03/22/2025 09:30 Report Date: 03/22/2025 11:38 At the request of: MARY GRACE BARFIELD MD Procedure: US thyroid THYROID ULTRASOUND CLINICAL DATA: Follow-up nodularity COMPARISON: 08/24/2024 The right thyroid lobe measures 4.8 x 2.2 x 2.1 cm . Left lobe measures 4.1 x 1.4 x 1.8 cm. The isthmus measures 3 - 4 mm. There is a heterogeneous echogenicity. On the right, no discrete nodules are measured. On the left at the inferior pole, there is a nodule measuring 9 x 6 x 9 mm. This appears to be a colloid cyst on today's study. This is not significantly changed. No new nodularity is seen. US/US thyroid IMPRESSION: LEFT COLLOID CYST, SIMILAR IN SIZE TO THE PRIOR. Impression dictated by: Simin Nelson M.D. 03/22/2025 11:38 AM Dictation Location: [place] [address] Electronically authenticated by: [id number] Y Date: 03/22/2025 11:38 Dictated By: Simin Nelson M.D. Signed By: 03/22/25 1141 DD/ 1138 TD/TT: [employer] Stock Clerk:Campylobacter Culture Reviewed date:10/17/2024 09:27:10 AM Interpretation: Performing Lab: Notes/Report: [facility] ,Campylobacter CultureSee Below For Report Campylobacter Culture No Campylobacter species isolated. Performing Lab:see noteLC - [facility] LBSalmonella/Shigella Screen Reviewed date:10/17/2024 09:27:10 AM Interpretation: Performing Lab: Notes/Report: [facility] ,Salmonella/Shigella ScreenSee Below For Report Salmonella/Shigella Screen Salmonella/Shigella ScreenNo Salmonella or Shigella recovered. Salmonella/Shigella Screen Performing Lab:see noteLC - [facility] LBE coli Shiga Toxin EIA Reviewed date:10/17/2024 09:27:10 AM Interpretation: Performing Lab: Notes/Report: [facility] ,E coli Shiga Toxin EIASee Below For Report E coli Shiga Toxin EIA Negative E coli Shiga Toxin EIAPerformed at: [facility] E coli Shiga Toxin EIA Negative E coli Shiga Toxin [id number] [place], [place] [id number] E coli Shiga Toxin EIA Negative E coli Shiga Toxin EIALab Director: Doyle Mendenhall PhD, Phone: [phone] E coli Shiga Toxin EIA Negative Performing Lab:see note LC - [facility] LB SEE REPORT - Sourcing Manager Id information not found for OBX-specific pattern grader cutter legend VITAMIN D 25 [place] Reviewed date:08/08/2024 02:48:03 PM Interpretation: Performing Lab: Notes/Report: [facility] ,Vitamin D27.7 <20 ng/mL Vit D deficient 20-<30 ng/mL Vit D insufficient 30-100 ng/mL Vit D sufficient >100 ng/mL Potential Toxicity Performing Lab:see note - [facility] Reviewed date:08/08/2024 02:48:03 PM Interpretation: Performing Lab: Notes/Report: [facility] ,Thyroid Stimulating Hormone0.6230.358-3.740 uIU/mLPerforming Lab:see noteML - [facility] LBT4 Reviewed date:08/08/2024 02:48:03 PM Interpretation: Performing Lab: Notes/Report: [facility] ,T4 Sdeiwopan71.404.80-13.90 ug/dLPerforming Lab:see noteML - [facility] LBPROF 14(COMP METB) Reviewed date:08/08/2024 02:48:03 PM Interpretation: Performing Lab: Notes/Report: [facility] ,Oxvsil611908-395 mmol/LPotassium3.43.5-5.1 mmol/JOiwuumha29099-003 mmol/LCarbon Femozab47.921.0-32.0 mmol/LAnion Gap12.5Lavhgyq6945-850 mg/dLBlood Urea Nitrogen 20.07.0-18.0 mg/dLCreatinine0.640.55-1.02 mg/dLEstimated GFR ( Cindi>60 >=60 mL/min/1.73m 2Estimated GFR (Non- Coretta>60>=60 mL/min/1.73m 2BUN Creatinine Ratio31.9Vnnpcoh8.28.5-10.1 mg/dLBilirubin Total0.20.2-1.0 mg/dL Aspartate Amino Ybauzqzdpal5568-87 U/LAlanine Owbcrmehknplxkym8567-27 U/L Alkaline Ctyrdcsujhg1902-196 U/LTotal Protein6.76.4-8.2 g/dLAlbumin Level3.23.4- 5.0 g/dLGlobulin3.5Albumin Globulin Ratio0.9Performing Lab:see noteML - [facility] LBLIPID PROFILE Reviewed date:08/08/2024 02:48:03 PM Interpretation: Performing Lab: Notes/Report: [facility] ,Zxchlcgvgckqp811<=150 mg/tCMdmohnebvfc894<=200 mg/dLHDL Rrghtnbjecc8292-89 mg/dL > or =60 mg/dl - LOW CARDIOVASCULAR RISK <40 mg/dl - HIGH CARDIOVASCULAR RISK LDL Cholesterol Gdjvrpdflh833.0 <100 mg/dl OPTIMAL 100-129 mg/dl NEAR OR ABOVE OPTIMAL 130-159 mg/dl BORDERLINE HIGH 160-189 mg/dl HIGH >190 mg/dl VERY HIGH VLDL IQLAEXPWETV96.8Chol HDL Ratio6.2 3.3 - 4.4 LOW RISK 4.4 - 7.1 AVERAGE RISK 7.1 - 11.0 MODERATE RISK >11.0 HIGH RISK Performing Lab:see note - [facility] LBGLYCOHEMOGLOBIN A1C Reviewed date:08/08/2024 02:48:03 PM Interpretation: Performing Lab: Notes/Report: [facility] ,Glycohemoglobin A1C6.74.5-6.2 % ADA RECOMMENDED LIMIT 4.0 - 6.0 ADA THERAPEUTIC TARGET < 7.0 ACTION SUGGESTED > 7.0 Estimated Average Jasplzk459Ndifwutwaz Lab:see note - [facility] LB FREE T3 Reviewed date:08/08/2024 02:48:03 PM Interpretation: Performing Lab: Notes/Report: [facility] ,Free T32.892.18-3.98 pg/mLPerforming Lab:see note - [facility] LB CBC AUTO DIFF Reviewed date:08/08/2024 08:30:17 AM Interpretation: Performing Lab: Notes/Report: [facility] ,White Blood Count12.04.0-11.0 10 3/uLRed Blood Count4.274.20-5.40 10 6/uL Nibxuvtwpk99.712.0-16.0 g/jWLmganolqgl79.836.0-48.0 %Mean Corpuscular Aiydtg97.2 81.0-99.0 fLMean Corpuscular Txsxnqdaom78.726.7-34.0 pgMean Corpuscular HGB Conc 31.929.9-35.2 g/dLRed Cell Distribution Width15.711.0-15.0 %Platelet Chjqi295 150-450 10 3/uLMean Platelet Cbgogg20.59.5-13.5 fLNeutrophils Percent Auto65.1 43.0-75.0 %Lymphocytes Percent Auto25.920.5-60.0 %Monocytes Percent Auto6.41.7- 12.0 %Eosinophils Percent Auto1.00.9-7.0 %Basophils Percent Auto0.40.2-2.0 % Immature Granulocytes Pct Auto1.20.0-0.5 %Neutrophils Absolute Auto7.81.4-6.5 10 3/uLLymphocytes Absolute Auto3.11.2-3.8 10 3/uLMonocytes Absolute Auto0.80.3-0.8 10 3/uLEosinophils Absolute Auto0.10.0-0.7 10 3/uLBasophils Absolute Auto0.10.0- 0.1 10 3/uLImmature Granulocytes Abs Auto0.140.00-0.03 10 3/uLPerforming Lab:see noteML - [facility] LBUS breast LT limited Reviewed date:07/14/2024 03:37:19 PM Interpretation: Performing Lab: Notes/Report: Source Facility: [facility]-[address] [place] [address] Ultrasound Report Signed Patient: JONES PANIAGUA MR#: [id number] : 1980 Acct:[id number] Age/Sex: 43 / F ADM Date: 06/14/24 Loc: MAMMO Attending Dr: Oly Parnell Ordering Physician: Oly Parnell Date of Service: 06/14/24 Procedure(s): US breast LT limited Accession Number(s): [id number] cc: Oly Parnell; GAY ENCISO Patient Name: JONES PANIAGUA MR#: [id number] : 1980 Exam Date: 06/14/2024 Ordering Doctor: BRIAN Parnell . RADIOLOGY REPORT PROCEDURE: US BREAST [...] Signed By: 06/14/24 1505 DD/ 1504 TD/TT: [employer] Stock Clerk:MM tomosynthesis diagnostic BI Reviewed date:07/14/2024 03:37:52 PM Interpretation: Performing Lab: Notes/Report: Source Facility: [place] [address] Mammography Report Signed Patient: JONES PANIAGUA MR#: [id number] : 1980 Acct:[id number] Age/Sex: 43 / F ADM Date: 06/14/24 Loc: MAMMO Attending Dr: Oly Parnell Ordering Physician: Oly Parnell Results: Date of Service: 06/14/24 Follow Up: Procedure(s): MM tomosynthesis diagnostic LT Accession Number(s): [id number] cc: Oly Parnell; GAY ENCISO Patient Name: JONES PANIAGUA MR#: [id number] : 1980 Exam Date: 06/14/2024 Ordering Doctor: BRIAN Parnell . RADIOLOGY REPORT PROCEDURE: MM TOMOSYNTHESIS [...] stomach cancer at age 56. LOCATION: [facility] BREAST COMPOSITION: There are scattered [...] M.D. Signed By: 06/14/241614 DD/ 13 TD/TT: [employer] Stock Clerk:CBC AUTO DIFF Reviewed date:05/15/2024 01:58:59 PM Interpretation: Performing Lab: Notes/Report: [facility] ,White Blood Count12.64.0-11.0 10 3/uLRed Blood Count4.444.20-5.40 10 6/uL Kipeyvsvvq28.412.0-16.0 g/jCLtjgaxhmex02.736.0-48.0 %Mean Corpuscular Nszgzp79.2 81.0-99.0 fLMean Corpuscular Nkqosqmaxq10.226.7-34.0 pgMean Corpuscular HGB Conc 31.429.9-35.2 g/dLRed Cell Distribution Width14.211.0-15.0 %Platelet Orhep249 150-450 10 3/uLMean Platelet Volume9.99.5-13.5 fLNeutrophils Percent Auto75.9 43.0-75.0 %Lymphocytes Percent Auto16.420.5-60.0 %Monocytes Percent Auto5.81.7- 12.0 %Eosinophils Percent Auto0.60.9-7.0 %Basophils Percent Auto0.60.2-2.0 % Immature Granulocytes Pct Auto0.70.0-0.5 %Neutrophils Absolute Auto9.61.4-6.5 10 3/uLLymphocytes Absolute Auto2.11.2-3.8 10 3/uLMonocytes Absolute Auto0.70.3-0.8 10 3/uLEosinophils Absolute Auto0.10.0-0.7 10 3/uLBasophils Absolute Auto0.10.0- 0.1 10 3/uLImmature Granulocytes Abs Auto0.090.00-0.03 10 3/uLPerforming Lab:see noteML - [facility] LBVC SEGMENTAL PRESSURES Reviewed date:04/27/2024 10:02:21 AM Interpretation: Performing Lab: Notes/Report: Source Facility: [place] [address] Vein Report Signed Patient: JONES PANIAGUA MR#: [id number] : 1980 Acct:[id number] Age/Sex: 43 / F ADM Date: 04/26/24 Loc: VC Attending Dr: Judy Arciniega M.D. Ordering Physician: Judy Arciniega M.D. Date of Service: 04/26/24 Procedure(s): VC SEGMENTAL PRESSURES Accession Number(s): [id number] cc: GAY ENCISO ; Judy Arciniega M.D. [place] [address] Patient Name: JONES PANIAGUA MRN: [facility]:[id number] date: 1980 Sex: F Assigned Patient Location: Current Patient Location: Accession/Order Number: [id number] Exam Date: 04/26/2024 10:45 Report Date: 04/26/2024 12:29 At the request of: JUDY ARCINIEGA Procedure: VC SEGMENTAL PRESSURES EXAM: VC SEGMENTAL PRESSURES HISTORY: I73.9 COMPARISON: None. FINDINGS: Segmental pressures presented as follows (right, left) in mmHg. Brachial: 102, 109 Upper thigh: 175, 183 Lower thigh: 166, 177 Calf: 140, 143 DPA: 123, 148 LINING LAYER: 139, 155 1st Toe: 141, 143 SAMUEL: [...] Signed By: 04/26/24 1231 DD/ 1229 TD/TT: [employer] Stock Clerk:US venous doppler LE BI Reviewed date:04/17/2024 03:30:15 PM Interpretation: Performing Lab: Notes/Report: Source Facility: [place] [address] Ultrasound Report Signed Patient: JONES PANIAGUA MR#: [id number] : 1980 Acct:[id number] Age/Sex: 43 / F ADM Date: 04/17/24 Loc: RAD Attending Dr: Enma WARREN Ordering Physician: Enma Murphy Date of Service: 04/17/24 Procedure(s): US venous doppler LE LT Accession Number(s): [id number] cc: GAY ENCISO ; Enma Murphy [place] [address] Patient Name: JONES PANIAGUA MRN: [facility]:[id number] date: 1980 Sex: F Assigned Patient Location: [facility] Current Patient Location: RAD Accession/Order Number: [id number] Exam Date: 04/17/2024 08:15 Report Date: 04/17/2024 [...] abnormality is identified. US/US venous doppler LE IMPRESSION: There is no direct or indirect [...] Signed By: 04/17/24 1458 DD/ 1456 TD/TT: [employer] Stock Clerk:C. Difficile PCR Reviewed date:04/11/2024 04:22:41 PM Interpretation: Performing Lab: Notes/Report: [facility] ,C. Difficile PCRNEGATIVEPerforming Lab:see noteML - [facility] LBMM tomosynthesis diagnostic BI Reviewed date:04/07/2024 08:58:17 AM Interpretation: Performing Lab: Notes/Report: Source Facility: [place] [address] Mammography Report Signed Patient: JONES PANIAGUA MR#: [id number] : 1980 Acct:[id number] Age/Sex: 43 / F ADM Date: 04/06/24 Loc: US Attending Dr: Luan Valdivia D.O. Ordering Physician: Luan Valdivia D.O. Results: Date of Service: 04/06/24 Follow Up: Procedure(s): MM tomosynthesis diagnostic BI Accession Number(s): [id number] cc: GAY ENCISO ; Luan Valdivia D.O. Patient Name: JONES PANIAGUA MR#: [id number] : 1980 Exam Date: 04/06/2024 Ordering Doctor: [...] stomach cancer at age 56. LOCATION: [facility] BREAST COMPOSITION: There are scattered [...] Signed By: 04/07/24 0841 DD/ 0840 TD/TT: [employer] Stock Clerk:US breast BI limited Reviewed date:04/07/2024 08:58:17 AM Interpretation: Performing Lab: Notes/Report: Source Facility: [facility]-[address] [place] [address] [place] [address] Ultrasound Report Signed Patient: JONES PANIAGUA MR#: [id number] : 1980 Acct:[id number] Age/Sex: 43 / F ADM Date: 04/06/24 Loc: US Attending Dr: Luan Valdivia D.O. Ordering Physician: Luan Valdivia D.O. Date of Service: 04/06/24 Procedure(s): US breast BI limited Accession Number(s): [id number] cc: GAY ENCISO ; Luan Valdivia D.O. Patient Name: JONES PANIAGUA MR#: [id number] : 1980 Exam Date: 04/06/2024 Ordering Doctor: [...] stomach cancer at age 56. LOCATION: [facility] BREAST COMPOSITION: There are scattered [...] Signed By: 04/07/24 0841 DD/ 0840 TD/TT: [employer] Stock Clerk:Celiac Disease Comprehensive Reviewed date:04/10/2024 09:26:28 AM Interpretation: Performing Lab: Notes/Report: [facility] ,Deamidated Gliadin Abs, AqM67-35 units Negative 0 - 19 Weak Positive 20 - 30 Moderate to Strong Positive >30 Deamidated Gliadin Abs, KwF35-93 units Negative 0 - 19 Weak Positive 20 - 30 Moderate to Strong Positive >30 t-Transglutaminase (tTG) IgA<20-3 U/mL Negative 0 - 3 Weak Positive 4 - 10 Positive >10 Tissue Transglutaminase (tTG) has been identified as the endomysial antigen. Studies have demonstr- ated that endomysial IgA antibodies have over 99% specificity for gluten sensitive enteropathy. t-Transglutaminase (tTG) IgG<20-5 U/mL Negative 0 - 5 Weak Positive 6 - 9 Positive >9 Endomysial Antibody IgANegativeNegativeImmunoglobulin A, Qn, Qrnfx47901-269 mg/dL Performed at: - [address] [id number] Geographic Information Systems Manager: Doyle Mendenhall PhD, Phone: [phone] Performing Lab:see noteLC - [facility] LBUrine Culture - [facility] Reviewed date:03/12/2025 11:26:52 AM Interpretation: Performing Lab: Notes/Report: [facility] ,Urine Culture - FRMCSee Below For Report Urine Culture - [facility] <9,000 colonies/ml mixed Urine Culture - FRMCbacterial skin contaminants Urine Culture - [facility] <9,000 colonies/ml mixed Urine Culture - [facility]2 Days Urine Culture - [facility] <9,000 colonies/ml mixed Urine Culture - [facility] Urine Culture - [facility] <9,000 colonies/ml mixed Urine Culture - [facility]esting [facility] Urine Culture - [facility] <9,000 colonies/ml mixed Urine Culture - [id number] [place] [address] Urine Culture - [facility] <9,000 colonies/ml mixed Performing Lab:see noteML - [facility] LBUA RANDOM W or MICROSCOPIC Reviewed date:03/12/2025 08:33:57 AM Interpretation: Performing Lab: Notes/Report: [facility] ,Color UrineYELLOWYELLOWClarity UrineCLEARCLEARSpecific [place] Urine1.025 1.005-1.025pH Urine5.55.0-9.0Protein UrineNEGATIVENEG/TRACE mg/dLGlucose Urine YT865TXYCUGJR mg/dLBilirubin UrineNEGATIVENEGATIVEKetones UrineNEGATIVENEGATIVE mg/dLBlood UrineNEGATIVENEGATIVENitrite UrineNEGATIVENEGATIVEUrobilinogen Urine 0.20.2-1.0 EU/dLLeukocyte Esterase UrineNEGATIVENEGATIVEWBC UrineNONE SEENNONE SEEN #/HPFRBC Urine0-20-2 #/HPFBacteria UrineTRACENONE SEEN #/HPFMucus UrineNONE SEENNONE SEENSquamous Epithelial Cell UrineMODERATENONE/RARE #/LPFCrystals Seen? None SeenNone Seen #/HPFCast Seen?NONE SEENNONE SEEN #/LPFUrine Culture IndicatedALREADY ORDEREDPerforming Lab:see note - [facility] LBPROF CHEM 8 (BAS METB) Reviewed date:03/12/2025 08:33:57 AM Interpretation: Performing Lab: Notes/Report: [facility] ,Wtfecc876553-250 mmol/LPotassium3.93.5-5.1 mmol/EHzmldokd23068-670 mmol/LCarbon Wthhlga10.421.0-32.0 mmol/LAnion Gap14.0Nnfhhzm53127-889 mg/dLBlood Urea Nitrogen9.07.0-18.0 mg/dLCreatinine0.630.55-1.02 mg/dLEstimated GFR ( Cindi>60>=60 mL/min/1.73m 2Estimated GFR (Non- Coretta>60>=60 mL/min/1.73m 2BUN Creatinine Ratio14.2Npoddxo2.98.5-10.1 mg/dLPerforming Lab:see note - [facility] LBLACTATE or LACTIC ACID Reviewed date:03/12/2025 08:33:57 AM Interpretation: Performing Lab: Notes/Report: N [facility] ,Lactate/Lactic Acid3.00.4-2.0 mmol/LRESULTS CALLED TO Gay EncisoPerforming Lab:see note - [facility] LBXR thoracic spine 3V Reviewed date:03/12/2025 08:33:57 AM Interpretation: Performing Lab: Notes/Report: Source Facility: [facility]-[address] [place] [address] The [place] [id number] XRay Report Signed Patient: JONES PANIAGUA MR#: [id number] : 1980 Acct:[id number] Age/Sex: 44 / F ADM Date: Loc: [facility] Attending Dr: KIMBERLY FLORES Ordering Physician: KIMBERLY FLORES Date of Service: 03/09/25 Procedure(s): XR thoracic spine 3V Accession Number(s): [id number] cc: GAY ENCISO ; KIMBERLY FLORES [place] [address] Patient Name: JONES PANIAGUA MRN: [id number] date: 1980 Sex: F Assigned Patient Location: [facility] Current Patient Location: [facility] Accession/Order Number: [id number] Exam Date: 03/09/2025 17:42 Report Date: 03/09/2025 [...] Cox M.D. 03/09/2025 9:50 PM Dictation Location: [place] [address] Electronically authenticated by: [id number] Y Date: 03/09/2025 21:50 Dictated By: Rafal Cox M.D. 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 GAY ENCISO at 1349 Performing Lab:see [facility] LBLACTATE or LACTIC ACID Reviewed date:03/23/2025 09:19:37 AM Interpretation: Performing Lab: Notes/Report: N [facility] ,Lactate/Lactic Acid2.70.4-2.0 mmol/LRESULTS CALLED TO allyson glez rn Performing Lab:see [facility] LBCT ABDOMEN W CON Reviewed date:03/22/2025 01:33:13 PM Interpretation: Performing Lab: Notes/Report: Source Facility: [facility]-[address] [place] [address] CT Scan Report Signed Patient: JONES PANIAGUA MR#: [id number] : 1980 Acct:[id number] Age/Sex: 44 / F ADM Date: 03/22/25 Loc: CT Attending Dr: Ingrid Portillo NP Ordering Physician: Ingrid Portillo NP Date of Service: 03/22/25 Procedure(s): CT abdomen w con Accession Number(s): [id number] cc: GAY ENCISO [place] [address] Patient Name: JONES PANIAGUA MRN: [id number] date: 1980 Sex: F Assigned Patient Location: CT Current Patient Location: [facility] Accession/Order Number: [id number] Exam Date: 03/22/2025 10:05 Report Date: 03/22/2025 13:02 At the request of: INGRID PORTILLO NP Procedure: CT abdomen w con CT ABDOMEN WITH CONTRAST CLINICAL DATA: Chronic upper abdominal pain and pressure. COMPARISON: 12/05/2023 Spiral images were obtained through the abdomen following oral and 100 mL of Omnipaque 300. This CT exam was performed using one or more following dose reduction techniques: Automated exposure control, adjustment of the mA and/or kV according to patient size, or use of iterative reconstruction technique. Limited cuts through the lung bases show no contributory findings. There is fatty infiltration of the liver. No calcified gallstones are identified. The spleen, pancreas and adrenal glands show no acute findings. There are symmetric renal nephrograms, without hydronephrosis. Tiny renal cysts are again visualized. The abdominal aorta is normal caliber. No enlarged lymph nodes or ascites are noted. The small bowel loops are normal caliber. There is is a small amount of colonic stool. There are segments of colon which are under distended and have apparent wall thickening. The bony structures are intact. There are tiny endplate spurs and mild lower lumbar facet disease. CT/CT abdomen w con IMPRESSION: FATTY LIVER. TINY RENAL CYSTS. NO ACUTE INTRA-ABDOMINAL FINDINGS. Impression dictated by: Simin Nelson M.D. 03/22/2025 1:02 PM Dictation Location: [place] [address] Electronically authenticated by: [id number] Y Date: 03/22/2025 13:02 Dictated By: Simin Nelson M.D. Signed By: 03/22/25 1305 DD/ 1302 TD/TT: [employer] Stock Clerk:XR hip MARK Reviewed date:03/22/2025 01:32:30 PM Interpretation: Performing Lab: Notes/Report: Source Facility: [place] [address] XRay Report Signed Patient: JONES PANIAGUA MR#: [id number] : 1980 Acct:[id number] Age/Sex: 44 / F ADM Date: 03/22/25 Loc: RAD Attending Dr: KIMBERLY FLORES Ordering Physician: KIMBERLY FLORES Date of Service: 03/22/25 Procedure(s): XR hip MARK Accession Number(s): [id number] cc: GAY ENCISO ; KIMBERLY FLORES [place] [id number] Patient Name: JONES PANIAGUA MRN: [facility]:[id number] date: 1980 Sex: F Assigned Patient Location: [facility] Current Patient Location: [facility] Accession/Order Number: [id number] Exam Date: 03/22/2025 09:50 Report Date: 03/22/2025 12:39 At the request of: KIMBERLY FLORES Procedure: XR hip MARK BILATERAL HIPS - 2 views each COMPARISON: CT 06/26/2023 and plain films 06/24/2023 CLINICAL DATA: Chronic bilateral hip pain. No injury. AP and frog-lateral views were obtained on both sides. No acute fracture or dislocation is identified. The hip joint spaces are symmetric and there is no significant hypertrophy. Tiny enthesophytes are seen at the greater trochanters. No soft tissue abnormalities are visualized. XR/XR hip MARK IMPRESSION: NO ACUTE BONY FINDINGS. Impression dictated by: Simin Nelson M.D. 03/22/2025 12:39 PM Dictation Location: [place] [address] Electronically authenticated by: [id number] Y Date: 03/22/2025 12:39 Dictated By: Simin Nelson M.D. Signed By: 03/22/25 1241 DD/ 1239 TD/TT: [employer] Stock Clerk:LACTATE or LACTIC ACID Reviewed date:03/27/2025 02:41:37 PM Interpretation: Performing Lab: Notes/Report: N [facility] ,Lactate/Lactic Acid2.60.4-2.0 mmol/LRESULTS CALLED TO OLY SMITHPerforming Lab: see noteML - [facility] LB Reason For Referral Diagnosis 1 Elevated lactic acid level (R79.89) Diagnosis 2 Pilonidal abscess (L 05.01) Referral Organization [facility] Medicine Referring Provider First Name Gay Referring Provider Last Name Britt Referring Provider Speciality Family Med icine Referred Provider Jazmyn Key Referred Provider Specialty Internal Med icinan Referral Priority Routine Medications Medication SIG (Take, Route, Frequency, Duration) Notes Start Date End Date Status Hydroxychloroquine Sulfate 400 MG 1 caps ule Orally once daily; Duration: 30 days ActiveFolic AcidActiveVoltaren 1 %as directed Externally as tkathg2202/01/2024 ActiveMetoprolol Tartrate 50 MGTAKE 2 TABLETS BY MOUTH TWICE A DAY WITH FOOD; Duration: 90 daysActiveKlonoPIN 0.5 MG 1 tablet Orally Once a day prn; Duration: 30 days F41.9 5ActiveVitamin D (Ergocalciferol) 1.25 MG (30348 UT)1 capsule Orally once weekly; Duration: 28 daysActiveCymbalta 20 MG1 capsule Orally Once a day; Duration: 30 days4ActiveTrulicity 0.75 MG/0.5MLas directed Subcutaneous weekly; Duration: 28 days5ActiveCyanocobalamin 1000 MCG/ML1 mL Injection dpzudfk72/06/2024ActiveTriamcinolone Acetonide 0.025 %APPLY TO AFFECTED AREA TWICE DAILY NEEDED FOR 30 DAYS External; Duration: 30 Days ActiveFluocinonide 0.05 %1 application Externally Once a day- as needed; Duration: 30 daysActiveNystatin 434927 UNIT/ML4 mL Mouth/Throat Four times a day; Duration: 7 daysActivePantoprazole Sodium 40 MG1 tablet 1/2 to 1 hour before morning meal Orally Once a day; Duration: 90 days5ActiveMounjaro 2.5 MG/0.5MLas directed Subcutaneous weekly; Duration: 28 dayscall for next dose 5ActiveClobetasol Propionate 0.05 %APPLY TO SCALP IN SHOWER 3 TO 4 TIMES A WEEK External; Duration: 30 DaysActivePregabalin 75 MG3 capsule Orally once daily- as needed; Duration: 30 daysPRNActiveBenlysta 200 MG/TI377oe Subcutaneous once weeklyActivepredniSONE 10 MG1 tablet Orally once daily; Duration: 30 daysActive Social History Tobacco Use: Social History Observation Description Date Details (start date - stop date) Current Smoker 05/24/1995 - NA Tobacco Use/Smoking Question Answer Notes Patient is a current smoker When did you start smoking?05/24/1995How often do you smoke cigarettes?every day How many cigarettes a day do you smoke?11-20Additional Findings: Tobacco User Moderate cigarette smoker (10-19 cigs/day)Alcohol Screen (Audit-C) Question Answer Notes Did you have a drink containing alcohol in the p ast year? No Icfgzi0CxhfpwafwvjiroScdycbkrEZDGC-D (Standard) Question Answer Notes Did you have a drink containing alcohol in the p ast year? No Rghpxn9RsigpdjtdsloazHctfmjtv Problems Problem Type SNOMED Code ICD Code Onset Dates Problem Status W/U Status Risk Notes Problem Chronic fatigue syndrome (86509779) Chron ic fatigue (780.79) ActiveconfirmedProblemNon-toxic single thyroid nodule (991017745)Nontoxic single thyroid nodule (E04.1)ActiveconfirmedProblemSleep apnea (08203924)Sleep apnea, unspecified (G47.30)ActiveconfirmedProblemGeneralized enlarged lymph nodes (143327706)Generalized enlarged lymph nodes (R59.1)ActiveconfirmedProblem Hypertension (11891884)Hypertension (I10)ActiveconfirmedProblemGastroesophageal reflux disease (707859085)GERD (gastroesophageal reflux disease) (K21.9)Active confirmedProblemAnxiety (84382190)Anxiety (F41.9)ActiveconfirmedProblemType 2 diabetes mellitus (40083615)Type 2 diabetes mellitus (E11.9)Activeconfirmed ProblemLeukocytosis (472032210)Elevated WBC count (D72.829)Activeconfirmed ProblemThyroid nodule (945678761)Thyroid nodule (E04.1)ActiveconfirmedProblem Fatty liver (827310089)Fatty liver (K76.0)ActiveconfirmedProblemLupus (252034989)Lupus (M32.9)ActiveconfirmedProblemAbdominal pressure (653000602) Abdominal pressure (R10.9)ActiveconfirmedProblemRaynaud's disease (584881153) Raynauds phenomenon (I73.00)ActiveconfirmedProblemPure hypercholesterolemia (381108516)Pure hypercholesterolemia, unspecified (E78.00)ActiveconfirmedProblem Prediabetes (217793772)Pre-diabetes (R73.03)Activeconfirmed Vital Signs Temperature 98.2 degrees Fahrenheit 05/15/2024 Blood pressure xobwwoyfa19 mm Hg03/08/20251256Jjzcpt93 in03/08/2025lood pressure fvfslzse261 mm Hg03/08/20254651Kbyjvv955.8 lbs1MI44.91 kg/m203/08/2025 Encounters Encounter Location Date Provider Diagnosis [facility] [address] [place] [address] 03/09/2025 Gay Enciso [facility] [place] [address] 03/12/2025Gay [facility] [place] [address]/[facility] [facility] [place] [address]/08/2024[facility] [place] [address]/01/2025[facility] [address] [place] [address]/Gay [facility] [address] [place] [address]/Gay [facility] [address] [place] [address]/Gay [facility] [facility] [facility] [address] [place] [address] 03/08/2025Gay [facility] [facility] [address] [place] [address]/[facility] [address] [address] [place] [address]/Gay [facility] [facility] [facility] [address] [place] [address]/ Gay Mace pain R68.84[facility] [facility] [place] [address]/07/2024Gay Aburto-diabetes R73.03 and Encounter for long-term current use of medication Z79.899[facility] [address] [place] [address]/10/2024[facility]ela [facility] [place] [address]/11/2024Pamela CramerElevated lactic acid level R79.89[facility] [place] [address]/11/2024Pamela CramerElevated lactic acid level R79.89[facility] [place] [address]/08/2024Pamela [facility] [place] [address]/09/2024[facility] [place] [address]/01/2025Pamela CramerThrush B37.0[facility] [place] [address] 11/03/2024Pamela [facility] [place] [address]/Doug HoyThrush B37.0 and Anxiety F41.9BMt. [facility] [place] [address]/ Gay CramerAnxiety F41.9BMt. [facility] [place] [address]/Pamela CramerPre-diabetes R73.03[facility] [place] [address]/07/2024Pamela [facility]ramer[facility] [place] [address]/03/2025Pamela CramerAnxiety F41.9BMt. [facility] [address] [place] [address]/Pamela CramerAnxiety F41.9 and Diarrhea R19.7BMt. [facility] [facility] [facility] [address] [place] [address]/Pamela [facility] [facility] [facility] [address] [place] [address]/Pamela [facility] [place] [address]/4Pamela CramerAnxiety F41.9BMt. [facility] [facility] [facility] [address] [place] [address] 4Pamela CramerHypertension I10 and Oral candidiasis B37.0[facility] [address] [place] [address]/ Gay [facility] [facility] [facility] [address] [place] [address]/Pamela CramerHypertension Q75GgjzlvnNorthern [facility] [address] [facility] [address] [place] [address]/03/2025P[facility]ela [facility] [facility] [address] [place] [address]/10/2024 Gay [facility] [facility] [address] [place] [address]/4Pamelbryce [facility] [facility] [facility] [address] [place] [address]/4Pamela [facility] [facility] [facility] [address] [place] [address]/4Pamela [facility] [place] [address]/10/2023 Gay CramerHypertension S07YcluefwNorthern [facility] [facility] [address] [place] [address]/06/2025Pamela CramerGERD (gastroesophageal reflux disease) K21.9 and Anxiety F41.9BPaul [place] [address] [facility] [place] [address]/Doug HoyGeneralized enlarged lymph nodes R59.1 and Elevated WBC count D72.829[place] [address] [place] [facility] [place] [address]/Pamela CramerElevated lactic acid level R79.89 ; Pilonidal abscess L05.01 and Type 2 diabetes mellitus E11.9 [facility] [facility] [place] [address] 4Pamela CramerEnlarged lymph nodes R59.9 and C. difficile diarrhea A04.72[place] [address] [place] [address]/4Pamela CramerOral candidiasis B37.0[place] [address] [facility] [place] [address]/4Pamela CramerLupus M32.9BPaul [place] [address]25 [place] [address] 07/04/2024Pamela CramerPre-diabetes R73.03 and Thrush B37.0[place] [address] [place] [address]/06/2024Pamela CramerDiarrhea R19.7 ; GERD (gastroesophageal reflux disease) K21.9 and Generalized enlarged lymph nodes R59.1BPaul [place] [address]25 [place] [address]/Pamela CramerRib pain on right side R07.81 ; Jaw pain R68.84 and Generalized enlarged lymph nodes R59.1BPaul [place] [address]25 [place] [address]/10/2024 Gay CramerElevated lactic acid level R79.89 and Type 2 diabetes mellitus E11.9BPaul [place] [address] [place] [address] 03/05/2025Pamela CramerPilonidal cyst with abscess L05.01 Assessments Encounter Date Diagnosis (ICD Code) Assessment Notes Treatment Notes Treatment Clinical Notes Section Notes 04/05/2024 Oral candidiasis (ICD-10 - B37.0 ) fu as ihbnoa2404/14/2024Lupus (ICD-10 - M32.9) c diff prophylaxis Vanco 125 mg 05/15/2024Enlarged lymph nodes (ICD-10 - R59.9)05/15/2024. difficile diarrhea (ICD-10 - A04.72) hx of on Amoxicillin, concerned for recurrence 07/04/2024Pre-diabetes (ICD-10 - R73.03)07/04/2024Thrush (ICD-10 - B37.0) requesting referral [facility] for second opinion recurrent thrush? roof of mouth sore, coating 07/27/2024GERD (gastroesophageal reflux disease) (ICD-10 - K21.9)07/27/2024 Anxiety (ICD-10 - F41.9) CSA signed OARRS reviewed discussed need to fu psych will prescribe klonopin short term, helped in past pt voices understanding 08/11/2024Generalized enlarged lymph nodes (ICD-10 - R59.1)08/11/2024Elevated WBC count (ICD-10 - D72.829)10/23/2024Diarrhea (ICD-10 - R19.7)03/05/2025 Pilonidal cyst with abscess (ICD-10 - L05.01) fu Blum, if needs ID referral Jennifer Shultz on Keflex currently continue monitor 04/28/2024Hypertension (ICD-10 - I10)04/28/2024nxiety (ICD-10 - F41.9) 05/01/2024Hypertension (ICD-10 - I10)02/26/2025Elevated lactic acid level (ICD- 10 - R79.89)02/26/2025Type 2 diabetes mellitus (ICD-10 - E11.9)03/08/2025 Elevated lactic acid level (ICD-10 - R79.89) [...] last A1c not great, recently restarted trulicity 03/08/2025Pilonidal abscess (ICD-10 - L05.01)06/16/2024Hypertension (ICD-10 - I10)08/16/2024Pre-diabetes (ICD-10 - R73.03)09/01/2024nxiety (ICD-10 - F41.9) 10/06/2024nxiety (ICD-10 - F41.9)01/08/2025Rib pain on right side (ICD-10 - R07.81)01/08/2025Jaw pain (ICD-10 - R68.84)10/30/2024Thrush (ICD-10 - B37.0) 11/06/2024Thrush (ICD-10 - B37.0)12/05/2024nxiety (ICD-10 - F41.9)02/09/2025Jaw pain (ICD-10 - R68.84)02/23/2025Pre-diabetes (ICD-10 - R73.03)02/23/2025 Encounter for long-term current use of medication (ICD-10 - Z79.899)02/27/2025 Elevated lactic acid level (ICD-10 - R79.89)02/27/2025Elevated lactic acid level (ICD-10 - R79.89)11/06/2024nxiety (ICD-10 - F41.9)01/08/2025Generalized enlarged lymph nodes (ICD-10 - R59.1)10/06/2024Diarrhea (ICD-10 - R19.7) 03/08/2025Type 2 diabetes mellitus (ICD-10 - E11.9)restart ozwkiprlo12/09/2024 Oral candidiasis (ICD-10 - B37.0)10/23/2024GERD (gastroesophageal reflux disease) (ICD-10 - K21.9)10/23/2024Generalized enlarged lymph nodes (ICD-10 - R59.1) Plan Of Treatment Pending Test Test Name Order Date CMP (COMPLETE METABOLIC PANEL) CMP (COMPLETE METABOLIC PANEL) UA (URINALYSIS, COMPLETE) 03/08/2025 CULTURE, STOOL 10/23/2024 HEMOGLOBIN A1C (GLYCO) 06/24/2023 HEMOGLOBIN A1C (GLYCO) 07/27/2024 IRON, TOTAL 07/27/2024 LIPID PANEL (CHOL/TRIG/HDL/LDL) 07/28/19 CBC WITH DIFF 07/27/2024 CBC WITH DIFF 06/24/2023 CBC WITH DIFF 05/15/2024 CBC WITH DIFF 01/03/2024 UA (REFLEX URINALYSIS TO CULTURE) 2023 VITAMIN D, 25 LEVEL (TOTAL) 07/27/2024 Echocardiogram 02/10/2024 XR Abdomen AP (1 view) (KUB) * CT Abdomen and Pelvis w/wo contrast 06/2023 US Thyroid 07/27/2023 C DIFFICILE BY PCR 02/26/2025 C DIFFICILE BY PCR 03/06/2024 Urine Culture 03/08/2025 PFT Complete 08/17/2023 Insulin Level 07/27/2024 COMPREHENSIVE METABOLIC PANEL 02/26/2025 C DIFF TOX PCR STOOL 07/20/2023 C DIFF TOX PCR STOOL 10/23/2024 C DIFF TOX PCR STOOL 09/08/2023 C DIFF TOX PCR STOOL 12/20/2023 C DIFF TOX PCR STOOL 10/06/2024 CMP - Comprehensive Metabolic Panel 07/2024 Comp. [...] End Date [employer] [place] [employer] [address] [place] [id number] Ro Paniaguaelf - patient is the insured Medical (General) History Medical History History ICD Code Chronic fatigue 780.79 Anxiety F41.9 Cervical lymphadenopathy R59.0 GERD (gastroesophageal reflux disease) K 21.9 Hypercholesterolemia E78.00 Hyperlipidemia E78.5 Lupus M32.9 Tachycardia R00.0 Prediabetes R73.09 Hypertension I10 Surgical History Surgery Date(Month/Year) Pynonidal Cyst 02/2025 lymph node biopsy 2020
--- OUTSIDE RECORDS SUMMARY | 2025-04-05 18:47 | XMS_ITS | Encounter Summary ---
Author Organization [facility] Address [address] [facility] [place] [address] Care Team Providers Care Billing Clinician Name Role Phone Gay De La Torre MD Unavailable [phone] Encounter Details DateTypeDepartmentCare Team (Latest Contact Info)Njlcckelrrf08/30/2025linisync Result Encounter [facility] External Department Unsolicited Mary Grace Mejias MD [address] [facility] [address] [place] [address] Social History Tobacco UseTypesPacks/DayYears UsedDateSmoking Tobacco: Every FoeTaawfgrusp679.9 Started: 05/24/1995Smokeless Tobacco: Never Comments:Current smoker, carlos ryday, 11-20 cigarettes/day Alcohol UseStandard Drinks/WeekCommentsNever0 (1 standard drink = 0.6 oz pure alcohol)Caffeine intake : > 4 cups per dayCommentsNoSex and Gender InformationValueDate RecordedSex Assigned at BirthNot on fileLegal SexFemale 08/05/2022 7:18 PM EDTGender IdentityNot on fileSexual OrientationNot on file documented as of this encounter Plan of Treatment DateTypeDepartmentCare Team (Latest Contact Info)Icyajlmnapj25/17/2025 9:30 AM ESTOffice Visit [facility] [address] [facility] 150 [place] [phone] Terence Blum MD [address] [facility] 150 [place] [address] 06/21/2025 8:00 AM ESTOffice Visit [facility] [address] [facility] [address] [place] [address] Kade Richardson MD [address] [facility] [address] [place] [address] 07/25/2025 11:00 AM ESTOffice Visit [facility] [address] [place] [phone] Cynthia English MD [address] [place] [address] documented as of this encounter Procedures Procedure NamePriorityDate/TimeAssociated DiagnosisCommentsUS [id number]/22/2025 11:38 AM EDT documented in this encounter Results * US thyroid (03/22/2025 11:38 AM EDT)Anatomical RegionLateralityModalityHead, NeckUltrasoundSpecimen (Source)Anatomical Location / LateralityCollection Method / VolumeCollection TimeReceived Time03/22/2025 11:38 AM EDT Narrative 03/22/2025 11:41 AM EDT [facility] ?[address] ? [place] [address] ? Ultrasound Report ? Signed ? Patient: JONES PANIAGUA ?MR#: [id number] ?? : 1980 ?Acct:[id number] ?? Age/Sex: 44 / F ?ADM Date: 03/22/25 ?? Loc: US ? Attending Dr: Mary Grace Mejias M.D. ? Ordering Physician: Mary Grace Mejias M.D. ?? Date of Service: 03/22/25 ?? Procedure(s): US thyroid ?? Accession Number(s): [id number] ? cc: GAY DE LA TORRE ; Mary Grace Mejias M.D. ? [facility] ? [address] ? [place] [address] ? Patient Name: ?? JONES PANIAGUA ? MRN: [facility]:[id number] ? date: 1980 ?Sex: F ?? Assigned Patient Location: US ?? Current Patient Location: RAD ?? Accession/Order Number: [id number] ?? Exam Date: 03/22/2025 ??09:30 ?Report Date: 03/22/2025 ??11:38 ? At the request of: ?? MARY GRACE ??TIMMIS ??MD ? Procedure: ??US thyroid ? THYROID ULTRASOUND [...] M.D. ??03/22/2025 11:38 AM ? Dictation Location: [facility]--02 ? Electronically authenticated by: [id number] ??Y ?? Date: 03/22/2025 ??11:38 ? Dictated By: ?Simin Nelson M.D. ? Signed By: ?03/22/25 1141 ? DD/ 1138 ? TD/TT: ? Sand Wheeler: Procedure Note Radiology, Radiologist, MD - 03/22/2025 [place] [address] Ultrasound Report Signed Patient: JONES PANIAGUA R#: [id number] : 1980Acct:[id number] Age/Sex: 44 / FADM Date: 03/22/25 Loc: US Attending Dr: Mary Grace Mejias M.D. Ordering Physician: Mary Grace Mejias M.D. Date of Service: 03/22/25 Procedure(s): US thyroid Accession Number(s): [id number] cc: GAY ED LA TORRE ; Mary Grace Mejias M.D. The [address] [address] Patient Name: JONES PANIAGUA MRN: [facility]:[id number] date: 1980 Sex: F Assigned Patient Location: Current Patient Location: RAD Accession/Order Number: [id number] Exam Date: 03/22/2025 09:30 Report Date: 03/22/2025 11:38 At the request of: MARY GRACE MEJIAS MD Procedure: US thyroid THYROID ULTRASOUND CLINICAL [...] Nelson M.D. 03/22/2025 11:38 AM Dictation Location: [place] [address] Electronically authenticated by: [id number] Y Date: 1:38 Dictated By: Simin Nelson M.D. Signed By:03/22/25 1141 DD/ 1138 TD/TT: Sand Wheeler: Authorizing ProviderResult TypeResult StatusHilaeleazar Mejias MDIMG US PROCEDURES Final Result documented in this encounter Visit Diagnoses Not on filedocumented in this encounter Care Teams Team MemberRelationshipSpecialtyStart DateEnd Date Gay De La Torre MD [address] [place], [place] [phone] Referring PhysicianFamily Medicine07/18/24documented as of this encounter
--- OUTSIDE RECORDS SUMMARY | 2025-04-05 18:47 | XMS_ITS | Encounter Summary ---
Author Organization [facility] Address [address] [facility] [place] [address] Care Team Providers Care Scrum Master Name Role Phone Gay De La Torre MD Unavailable [phone] Encounter Details DateTypeDepartmentCare Team (Latest Contact Info)Kstgtqyaliq37/31/2025Travel Social History Tobacco UseTypesPacks/DayYears UsedDateSmoking Tobacco: Every HoiHdmynodmlr672.9 Started: 05/24/1995Smokeless Tobacco: Never Comments:Current smoker, carlos ryday, 11-20 cigarettes/day Alcohol UseStandard Drinks/WeekCommentsNever0 (1 standard drink = 0.6 oz pure alcohol)Caffeine intake : > 4 cups per dayCommentsNoSex and Gender InformationValueDate RecordedSex Assigned at BirthNot on fileLegal SexFemale 08/05/2022 7:18 PM EDTGender IdentityNot on fileSexual OrientationNot on file documented as of this encounter Plan of Treatment DateTypeDesiloam springs regional hospitalCare Team (Latest Contact Info)Dbcgpdlfflz14/17/2025 9:30 AM ESTOffice Visit [facility] [address] [facility] 150 [place] [phone] Terence Blum MD [facility] [facility] [address] [place] [address] 06/21/2025 8:00 AM ESTOffice Visit [facility] [address] [facility] [address] [place] [address] Kade Richardson MD [address] [facility] [address] [id number] 07/25/2025 11:00 AM ESTOffice Visit [facility] [address] [place] [address] Cynthia English MD [address] [place] [address] documented as of this encounter Visit Diagnoses Not on filedocumented in this encounter Care Teams Team MemberRelationshipSpecialtyStart DateEnd Date Gay De La Torre MD [address] [place], [place] [phone] Referring PhysicianFamily Medicine07/18/24documented as of this encounter
--- OUTSIDE RECORDS SUMMARY | 2025-04-05 18:47 | XMS_ITS | Encounter Summary ---
Author Organization [facility] Address [address] [place] [address] Care Team Providers Care Community Outreach Coordinator Name Role Phone House, Charles Culver MD Primary Care Provider Gay De La Torre MD Unavailable [phone] Encounter Details DateTypeDeshiprock-northern navajo medical centerbmentCare Team (Latest Contact Info)Dsizptkholz29/15/2024linisync Result Encounter [facility] External Department Unsolicited Luan Valdivia, DO [address] [facility] [address] [place], [place] [phone] Social History Tobacco UseTypesPacks/DayYears UsedDateSmoking Tobacco: Every AenCavcuujwgc922.9 Started: 05/24/1995Smokeless Tobacco: Never Comments:Current smoker, carlos ryday, 11-20 cigarettes/day Alcohol UseStandard Drinks/WeekCommentsNever0 (1 standard drink = 0.6 oz pure alcohol)Caffeine intake : > 4 cups per dayCommentsNoSex and Gender InformationValueDate RecordedSex Assigned at BirthNot on fileLegal SexFemale 08/05/2022 7:18 PM EDTGender IdentityNot on fileSexual OrientationNot on file documented as of this encounter Plan of Treatment DateTypeDesummit medical centerCare Team (Latest Contact Info)Sobuywwctoj53/17/2025 9:30 AM ESTOffice Visit [facility] [address] [facility] 150 [place] [phone] Terence Blum MD 703 [facility] 150 [place] [address] 06/21/2025 8:00 AM ESTOffice Visit [facility] [address] [place] [address] Kade Richardson MD [address] [facility] [address], [place] [address] 07/25/2025 11:00 AM ESTOffice Visit [facility] [address] [place] [address] Cynthia English MD [address] [place] [address] documented as of this encounter Procedures Procedure NamePriorityDate/TimeAssociated DiagnosisCommentsMM TOMOSYNTHESIS DIAGNOSTIC BI04/07/2024 8:40 AM EST documented in this encounter Results * MM TOMOSYNTHESIS DIAGNOSTIC BI (04/07/2024 8:40 AM EST)Anatomical Region LateralityModalityOtherSpecimen (Source)Anatomical Location / Laterality Collection Method / VolumeCollection TimeReceived Time04/07/2024 8:40 AM EST Narrative 04/07/2024 8:41 AM EST The [facility] ?[address] ? [place] [address] ? Mammography Report ? Signed ? Patient: TERAJONES B ?MR#: [id number] ?? : 1980 ?Acct:[id number] ?? Age/Sex: 43 / F ?ADM Date: 04/06/ ?? Loc: US ? Attending Dr: Luan Hays.O. ? Ordering Physician: Luan Valdivia.O. ?Results: ? Date of Service: 04/06/24 ?Follow Up: ? Procedure(s): MM tomosynthesis diagnostic BI ?? Accession Number(s): [id number] ? cc: GAY DE LA TORRE ; Luan Valdivia D.O. ? Patient Name: ? JONES PANIAGUA ? MR#: [id number] ? : 1980 ? Exam Date: 04/06/2024 [...] ?? age 56. ? LOCATION: ? [facility] ? BREAST COMPOSITION: ? There are scattered [...] 0841 ? DD/ 0840 ? TD/TT: ? Gyroscopic Engineering Technician: Procedure Note Radiology, Radiologist, MD - 04/07/2024 [place] [address] Mammography Report Signed Patient: JONES PANIAGUA BMR#: [id number] : 1980Acct:[id number] Age/Sex: 43 / FADM Date: 04/06/24 Loc: US Attending Dr: Luan Valdivia D.O. Ordering Physician: Luan Valdivia D.O.Results: Date of Service: 04/06/24Follow Up: Procedure(s): MM tomosynthesis diagnostic BI Accession Number(s): [id number] cc: GAY DE LA TORRE ; Luan Valdivia D.O. Patient Name: JONES PANIAGUA MR#: [id number] : 1980 Exam Date: 04/06/2024 Ordering Doctor: DR Luan Valdivia . RADIOLOGY REPORT PROCEDURE: MM TOMOSYNTHESIS DIAGNOSTIC BI, 04/06/2024, 15:20 US BREAST BI LIMITED, 04/06/2024, 15:37 COMPARISON: MM TOMOSYNTHESIS SCREENING BI, 09/23/2023. MG MAMM [id number] MARK CAD, 09/01/2022. MG MAMM SCREEN 3D [...] Yusuf M.D. Signed By:04/07/24 0841 DD/ TD/TT: Gyroscopic Engineering Technician: Authorizing ProviderResult TypeResult StatusCorey Skip DOCLINISYNC IMAGINGFinal Result documented in this encounter Visit Diagnoses Not on filedocumented in this encounter Care Teams Team MemberRelationshipSpecialtyStart DateEnd Date Charles Nicole MD PCP - GeneralFamily Medicine/ Gay De La Torre MD [address] [place] [address] Referring PhysicianFamily Medicine07/18/24documented as of this encounter
--- OUTSIDE RECORDS SUMMARY | 2025-04-05 18:49 | XMS_ITS | CCD ---
Author Organization [facility] CliniSymt Care Team Providers [employer] Worker Name Role Phone VICTOR MANUEL GUZMAN Referring Unavailable Unavailable Primary Care Provider UnavailJONAS Stuart Referring Unavailable Britt MICROBIOLOGY TECHNICIAN.TRUE, Gay Primary Care Provider Mirela Baer Unavailable Britt MICROBIOLOGY TECHNICIAN.DIGITAL MEDIA ANALYST, Gay Primary Care Provider [phone] Manuel Ferris MD Unavailable Manuel Ferris MD [...] Unavailable HOY ., DR BURKETT Admitting Unavailable BUFFY, DR DIETZ Consulting Unavailable BUFFY, DR DIETZ Attending Unavailable BLANK, DR DIETZ [...] Charles Nicole DO Primary Care Provider Mitali THORPE-RTUE, Michelle L Unavailable Unavailable Primary Care Provider UnavailAurora Carney MD Unavailable Britt TABOR, Gay S Primary Care Provider Manuel Ferris MD Primary Care Provider [phone] MD Adolfo Kang Attending Provider CARISSA De La Torre-Ananya Gay Natalie Primary Care Provider Charles Nicole MD Primary Care Provider CALOS ARCE Attending Unavailable Unavailable Primary Care Provider UnavailManuel Calixto MD Unavailable Britt HATCHERY SUPERVISOR-C, Gay Natalie Primary Care Provider [phone] Jorge Luis LEE, Adolfo S Attending Provider ALHAJI VICTORIA Attending Unavailable MANUEL FERRIS Primary Care Unavailable ALHAJI VICTORIA Attending Unavailable VAIBHAV CARVALHO Referring Unavailable MANUEL FERRIS Primary Care Unavailable Gay De La Torre MD Unavailable Mitali THORPE-TRUE, Michelle Surya Unavailable Aurora Patel MD Unavailable Britt TABOR, Gay S Primary Care Provider LOIS HOLM Attending Unavailable BRITT, GAY S Primary Care Unavailable LOIS HOLM Attending Unavailable LOIS HOLM Referring Unavailable BRITT, GAY S Primary Care Unavailable Britt HATCHERY SUPERVISOR-C, Gay Natalie Primary Care Provider Jorge Luis LEE, Adolfo Jane Attending Provider [phone] Britt HATCHERY SUPERVISOR-C, Gay Natalie Primary Care Provider Jorge Luis LEE, Adolfo Jane Attending Provider Melquiades HATCHERY SUPERVISOR, Margie Attending Provider Britt HATCHERY SUPERVISOR-C, Gay Natalie Primary Care Provider [phone] Jorge Luis LEE, Adolfo Jane Attending Provider Bandar Portillo APRN Attending Provider Britt HATCHERY SUPERVISOR-C, Gay Natalie Primary Care Provider Adolfo Kang MD Attending Provider Janes Barfield MD Attending Provider [phone] Adolfo Kang MD Other Provider Britt HATCHERY SUPERVISOR-C, Gay Natalie Primary Care Provider Adolfo Kang MD Attending Provider Garrison LEE, Mathew Christian Attending Provider [phone] Britt HATCHERY SUPERVISOR-C, Gay Natalie Primary Care Provider Melquiades HATCHERY SUPERVISOR, Margie Attending Provider Terence Blum MD Attending Provider Jose Perez DO Attending Provider Britt HATCHERY SUPERVISOR-C, Gay Natalie Attending Provider [phone] Britt HATCHERY SUPERVISOR-C, Gay Natalie Primary Care Provider Bandar Portillo APRN Attending Provider NON STAFF Primary Care Provider Unavailabl e Britt, Gay Natalie Admitting Unavailable Britt, Gay Natalie Attending Unavailable Jose Perez Admitting Unavailable Jose [...] Admitting Unavailable Mathew Ji Attending Unavailable Britt BISWAS, Gay S Primary Care Provider GAY DE LA TORRE Primary Care Unavailable SELF, SELF Referring Unavailable TAB MAY Attending Unavailable Britt LEE, Gay Unavailable Charles Nicole MD Primary Care Provider ABHYANKAR, VERA Referring Unavailable HOY, MANUEL M Primary Care Unavailable ABHYANKAR, VERA Referring Unavailable TORIE CARVALHOIMEE Attending Unavailable HOY, MANUEL M Primary Care Unavailable TODD CARVALHOE Referring Unavailable HOY, MANUEL M Primary [...] Primary Care Unavailable [place], [place] Attending Unavailable LAST, LYNNE Referring Unavailable HOY, MANUEL M Primary Care Unavailable ABHYANKAR, VERA Referring Unavailable HOY, MANUEL M Primary Care Unavailable HOY, MANEUL M Primary Care Unavailable ABHYANKAR, VERA Referring [...] Unavailable HOY, MANUEL M Primary Care Unavailable ALST, LYNNE Referring Unavailable HOY, MANUEL M Primary [...] Primary Care Unavailable ABHYANKAR, VERA Attending Unavailable ABHYANKAR, VERA Referring Unavailable HOY, MANUEL M Primary Care Unavailable DEVEN, VAIBHAV Referring Unavailable HOY, MANUEL M Primary Care Unavailable HOY, MANUEL M Primary Care Unavailable ABHYANKAR, VERA Referring Unavailable PETITTI, BERNABE Melendez Attending Unavailable GORDO BARFIELD Attending Unavailable BALWINDER HUDDLESTON Attending Unavailable OLY PLASCENCIA Referring Unavailable PETBERNABE HOWE Attending Unavailable TERENCE DAY Attending Unavailable BERNABE ENGLISH Referring Unavailable MARKY NICHOLS Attending Unavailable GORDO BARFIELD Attending Unavailable GAY DE LA TORRE Referring Unavailable OLY PLASCENCIA Attending Unavailable TERENCE DAY Attending Unavailable Allergies Allergy ClassificationReported Allergen(s)Allergy TypeDate of OnsetReaction(s) FacilityDihydrofolate Reductase Inhibitors (antibiotic) (3 sources)TrimethoprimDrug Jmwqtog86-66-2705Hzwge: See CommentsDetwiler Memorial Hospital Doxycycline (3 sources)DoxycyclineDrug Rzseyzu08-84-8939Zgwus: See [facility] Latex (3 sources)LatexSubstance Ceygqrg67-23-5366QphtOmqvnfhxr ClinicLincosamides (antibiotic) (3 sources)ClindamycinDrug Tufxwig10-55-1519HogagypZviedahje ClinicOpioid Agonists (3 sources)CodeineDrug Trpewbz21-81-3421Pqivf: See CommentsDetwiler Memorial Hospital Sulfamethoxazole / Trimethoprim (4 sources)Sulfamethoxazole / TrimethoprimDrug Whurhke23-08-0434CrmpesiaEqriz HealthSulfonamides (antibiotic) (3 sources)SulfamethoxazoleDrug Aijggsq89-37-4864Ycofo: See [facility] Work Phone: (20 sources)Codeine; Translations: [CODEINE]Drug Mfahmxa19-50-1604Adtxw: See Comments, Shortness of BreathDetwiler Memorial Hospital (20 sources)Latex; Translations: [LATEX]Drug Cewabub49-96-9395LoipOisvgjavz Clinic (20 sources)Sulfamethoxazole; Translations: [SULFAMETHOXAZOLE]Drug Allergy 66-58-7016VL Upset, Other: See CommentsDetwiler Memorial Hospital (20 sources)Clindamycin; Translations: [CLINDAMYCIN]Drug Gjzinqz44-82-2709 UnknownDetwiler Memorial Hospital (4 sources)Sulfamethoxazole / TrimethoprimDrug AllergylyFort [facility], [place] [employer] Other (20 sources)Doxycycline; Translations: [DOXYCYCLINE]Drug Vfeuynv67-68-5348Xmhzg: See Comments, Other, Unknown, Other (See Comments)[facility] (20 sources)Sulfamethoxazole / Trimethoprim; Translations: [SULFAMETHOXAZOLE-TRIMETHOPRIM]Drug Hpxecgx07-59-0473Gmvzchkz, Other, GI Disturbance, Other (See Comments), DyspepsiaDetwiler Memorial Hospital (20 sources)Trimethoprim; Translations: [TRIMETHOPRIM]Drug Qafxmfl41-09-8461 Other: See CommentsDetwiler Memorial Hospital (1 source)LatexDrug allergy (disorder)35-70-4858Zof [facility] Repository (1 source)Sulfamethoxazole / TrimethoprimDrug Wgszeuk91-66-1287IzfSelect Medical [facility] [place] Rep[facility] (20 sources)SulfamethoxazoleAllergy to qtriajhaq29-63-4943JC[facility] (20 sources)LatexPropensity to adverse czbgflbim83-12-5175EuqfHEKW Healthcare (14 sources)Omeprazole; Translations: [OMEPRAZOLE]Drug Necazcj84-47-5298 [facility] Repository (14 sources)pantoprazole; Translations: [PANTOPRAZOLE]Drug Jceezlh36-24-5989 [facility] Repository (1 source)ClindamycinDrug Acbiouo34-18-1341XbvjelsmzThe [facility] Rep[facility] (1 source)SulfamethoxazoleDrug Nwzfzvl93-08-5211WhoewhnoqThe [facility] Repository (1 source)TrimethoprimDrug Okrkmnd86-17-1168UaegoxlrmThe [facility] Repository (1 source)Sulfonamides (Antibiotic)Propensity to adverse reactions to drug 67-25-5125FcupqysiAhmyhPaulding County Hospital Medications Current Medications MedicationDrug Class(es)DatesSig (Normalized)Sig (Original)acetaminophen 500 mg oral tablet (20 sources)Start: 40-77-0777trxu 2 tablets by mouth every six hours as needed for painAcetaminophen (Acetaminophen Extra Strength) 500 mg tablet Active 1000 MG PO Every 6 hours as needed for pain January 31, 2025 12:00am Complies with drug therapyStart: 01-24-2025 End: 58-33-0682ffgn 1 dose by mouth once, then take 4000 mg by mouth once daily 650 mg, ORAL, ONCE, 1 dose, On Wed01/24/25 at 0930, No more than 4000 mg of acetaminophen should be given per day (FROM ALL SOURCES)Start: 01-11-2025 End: 37-59-1432lgoe 1 dose by mouth once1,000 mg, ORAL, ONCE, 1 dose, On Wed01/11/25 at 1430Start: 12-14-2024 End: 53-06-0389rquh 1 dose by mouth once1,000 mg, ORAL, ONCE, 1 dose, On Wed12/14/24 at 1430Start: 11-29-2024 End: 93-56-9645xkir 1 dose by mouth once, then take 4000 mg by mouth once daily 650 mg, ORAL, ONCE, 1 dose, On Wed11/29/24 at 1000, No more than 4000 mg of acetaminophen should be given per day (FROM ALL SOURCES)Start: 11-16-2024 End: 83-38-7427unew 1 dose by mouth once1,000 mg, ORAL, ONCE, 1 dose, On Wed11/16/24 at 1400Start: 10-31-2024 End: 04-52-7456zxbe 1 dose by mouth once, then take 4000 mg by mouth once daily 650 mg, ORAL, ONCE, 1 dose, On Wed10/31/24 at 1000, No more than 4000 mg of acetaminophen should begiven per day (FROM ALL SOURCES)Start: 10-19-2024 End: 62-54-4857ictu 1 dose by mouth once1,000 mg, ORAL, ONCE, 1 dose, On Wed10/19/24 at 1430Start: 2024 End: 90-99-9323pcnq 1 dose by mouth once1,000 mg, ORAL, ONCE, 1 dose, On Wed10/04/24 at 1430Start: 10-02-2024 End: 34-45-4683eocg 1 dose by mouth once, then take 4000 mg by mouth once daily 650 mg, ORAL, ONCE, 1 dose, On Wed10/02/24 at 0900, No more than 4000 mg of acetaminophen should begiven per day (FROM ALL SOURCES)Start: 09-18-2024 End: 97-97-3588ytfc 1 dose by mouth once1,000 mg, ORAL, ONCE, 1 dose, On Wed09/18/24 at 1300Start: 09-06-2024 End: 20-53-5076glll 1 dose by mouth once, then take 4000 mg by mouth once daily 650 mg, ORAL, ONCE, 1 dose, On Wed09/06/24 at 0930, No more than 4000 mg of acetaminophen should begiven per day (FROM ALL SOURCES)Start: 08-08-2024 End: 05-89-8897nyhr 1 dose by mouth once, then take 4000 mg by mouth once daily 650 mg, ORAL, ONCE, 1 dose, On Wed08/08/24 at 0930, No more than 4000 mg of acetaminophen should begiven per day (FROM ALL SOURCES)Start: 07-11-2024 End: 43-75-1932vvry 1 dose by mouth once, then take 4000 mg by mouth once daily 650 mg, ORAL, ONCE, 1 dose, On Wed07/11/24 at 0900, No more than 4000 mg of acetaminophen should begiven per day (FROM ALL SOURCES)Start: 06-13-2024 End: 90-69-0772yerq 1 dose by mouth once, then take 4000 mg by mouth once daily 650 mg, ORAL, ONCE, 1 dose, On Wed06/13/24 at 1000, No more than 4000 mg of acetaminophen should begiven per day (FROM ALL SOURCES)Start: 05-19-2024 End: 03-17-7448hdsg 1 dose by mouth once, then take [...] 5 mg oral tablet (2 sources)Opioid AgonistStart: 17-41-1976krzn 1 tablet by mouth every six hours as neededhydroCODone-acetaminophen 5-325 MG tablet Take 1 tablet by mouth every 6 hours as needed. 02/26/2025 ActiveStart: 48-44-6063lfhw 1 tablet by mouth every six hours as neededhydroCODone-acetaminophen 7.5-325 MG tablet Take 1 tablet by mouth every 6 hours as needed. 01/08/2025 ActiveALPRAZolam 0.25 mg oral tablet (20 sources)BenzodiazepineStart: 06-24-2023 End: 62-70-3597igff 1 tablet by mouth once dailyALPRAZolam 0.25 MG tablet Take 1 tablet by mouth daily. 04/28/2024 Activeamoxicillin 875 mg oral tablet (2 sources)Penicillin-class AntibacterialStart: 42-30-8540nrma 1 tablet by mouth every twelve hoursAmoxicillin [...] tablet (20 sources)gamma-Aminobutyric Acid-ergic AgonistStart: 02-09-2024 End: 79-25-2839bcmx 1 tablet by mouth at bedtimebaclofen (Lioresal) 5 MG tablet Indications: Lumbosacral radiculopathy at L5 , Degenerative disc disease, lumbar , Cervical radiculopathy at C5 TAKE 1 TABLET BY MOUTH IN THE MORNING, EVENING AND BEFORE BEDTIME 270 tablet 1 03/02/2024 02/28/2025 Discontinued (Therapy completed)cephalexin 500 mg oral capsule (17 sources)Cephalosporin AntibacterialStart: 02-27-2025 End: 58-23-3366rgiedejfrj (Keflex) 500 MG capsule 02/27/2025 ActiveStart: 06-15-2024 End: 91-32-7056lbjs 1 capsule by mouth in the morningcephalexin (Keflex) 500 MG capsule Indications: Cyst, breast, sebaceous, left Take 1 capsule (500 mg) by mouth in the morning and 1 capsule (500 mg) before bedtime. Do all this for 7 days. 14 skouwio5706/15/2024 06/22/2024 ActiveStart: 87-71-3705dhcadktllk (Keflex) 500 MG capsule Indications: Postoperative stitch abscess Take 1 tablet twice a day x 7 days 14 capsule 0 01/07/2023 ActiveKeflex Activecetirizine hydrochloride 10 mg oral tablet (4 sources)Histamine-1 Receptor Antagonisttake 1 tablet by mouth once daily Cetirizine 10 MG tablet Take 1 tablet by mouth daily. Active End: 22-15-3633Rdftelvgqe (ZYRTEC) 10 mg cap Take by mouth. 0 02/25/2022 Discontinued (Course of therapy completed)Comment on above:Take by mouth. chlorhexidine gluconate 40 mg/ml medicated liquid soap (20 sources)Start: 95-21-9620Bytnzeeygtbux Gluconate (Hibiclens) 4 % solution Indications: Hidradenitis suppurativa Use every day in shower from the neck down to affected areas. 532 mL 11 07/25/2024 ActiveStart: 60-39-2206Voovjjgujsclu Gluconate 4 % Solution Apply 1 Application topically daily as needed for Other. 07/25/2024 ActiveStart: 11-01-2023 End: 81-46-7328Qfgozkmzblpwj Gluconate (Hibiclens) 4 % solution Indications: Hidradenitis suppurativa Apply 1 Application topically Daily LATHER ONTO AFFECTED AREAS ON THE BODY AND RINSE FROM THE NECK DOWN 2 TIMES A WEEK AVOIDING THE FACE. 30 day supply 236 mL 11 03/17/2024 04/16/2024 ActiveStart: 07-15-2023 End: 28-66-5351dmvvhyibptjuq (Hibiclens) 4 % external liquid Indications: Hidradenitis suppurativa Lather onto affected areas on the body and rinse from the neck down, 2 times a week avoiding the face, 30 day supply 118 mL 11 07/15/2023 03/16/2024 Discontinuedclindamycin 10 mg/ml topical lotion (20 sources)Lincosamide AntibacterialStart: 63-79-7132xfjwiynhyan (Cleocin T) 1 % lotion Indications: Hidradenitis suppurativa Apply thin later to affected areas on the thighs, once daily, 30 day supply 60 mL 11 07/25/2024 ActiveStart: 06-23-2022 End: 17-70-0163ozdxsnlpuda (Clindagel) 1 % gel Indications: Hidradenitis suppurativa APPLY TO AFFECTED AREA DAILY 75 mL 11 10/06/2023 06/06/2024 Discontinuedclobetasol propionate 0.5 mg/ml medicated shampoo (20 sources)CorticosteroidStart: 61-29-1973Gdsicauzjk Propionate 0.05 % Shampoo Apply 1 Application topically 3 times weekly. APPLY TO SCALP IN SHOWER 3 TO 4 TIMES A WEEK 07/25/2024 ActiveStart: 72-57-9793Ltohmsufjl 0.05 % shampoo Active 1 APPLIC TOPICAL As Directed October 20, 2023 12:00am Complies with drug therapy Start: 83-14-4386Duqxrzbpyb Active TOPICAL October 20, 2023 12:00amStart: 10-23-2022 End: 87-96-9534Zhbhdyujhw Propionate 0.05 % shampoo Indications: Other seborrheic dermatitis 1 application to the scalp in the shower topically 3-4 times a week 236 mL 11 07/25/2024 ActiveclonazePAM 0.5 mg oral tablet (20 sources)BenzodiazepineStart: 67-70-6106wjuw 1 tablet by mouth once daily as neededKlonoPIN 0.5 MG tablet 1 tablet Orally Once a day prn for 30 days 09/01/2024 Activeclotrimazole 10 mg oral lozenge (11 sources)Azole AntifungalStart: 48-32-6355cbzdmtufebcc (MYCELEX) 10 mg christel USE 1 CHRISTEL WHILE ON IMMUNOSUPPRESSIVE MEDICINE BY MOUTH/THROAT 3 TIMES A DAY 10/23/2024 ActiveStart: 36-40-4166txozkcgwgzis (MYCELEX) 10 mg christel Dissolve 1 Christel in the mouth in the morning and 1 Christel at noon and 1 Christel in the evening and 1 Christel before bedtime. 04/05/2024 ActiveCPAP/BIPAP/OTHER (20 sources)Start: 05-05-2022 End: 37-70-4208HLAL/BIPAP/OTHER Indications: JOSE RAFAEL (obstructive sleep apnea) Type .CPAPSettings into a note to see current settings/supplies/DME information. 1 Each 05/05/2022 09/19/2049 ActiveStart: 05-05-2022 End: 29-35-8788HVSX/BIPAP/OTHER Indications: JOSE RAFAEL (obstructive sleep apnea) Type .CPAPSettings into a note to see current settings/supplies/DME information. 1 Each 0 05/05/2022 09/19/2049 ActiveStart: 04-13-2022 End: 99-70-1446EKTS/BIPAP/OTHER Indications: JOSE RAFAEL (obstructive sleep apnea) Type .CPAPSettings into a note to see current settings/supplies/DME information. 1 Each 0 04/13/2022 04/26/2023 Discontinued (Duplicate Entry)Start: 04-13-2022 End: 13-06-1412RNMZ/BIPAP/OTHER Indications: JOSE RAFAEL (obstructive sleep apnea) Type .CPAPSettings into a note to see current settings/supplies/DME information. 1 Each 0 04/13/2022 08/28/2049 ActiveComment on above:Type .CPAPSettings into a note to see current settings/supplies/DME information.diclofenac sodium 0.01 mg/mg topical gel (20 sources)Nonsteroidal Anti-inflammatory DrugStart: 90-95-7773Ozjqgvgpnq sodium 1 % Gel gel Apply 2 g topically 4 times daily. 08/14/2024 ActiveStart: 72-76-5043vurvhaoagx sodium 1 % gel 02/01/2024 ActiveStart: 19-97-2560hgtvbdksij sodium (VOLTAREN ARTHRITIS PAIN) 1 % gel Apply 2 g topically 4 (four) times a day as needed. 02/01/2024 TxoqoydlfkyirpmzCLBYK-znrsme-bmqsthncm (BMX 1:1:1) 1:1:1 liqd (20 sources)Start: 73-64-9311zwwc 5 mL by mouth every six hours as needed mwpfxmtjmxRCNWX-yhxamf-xazjwsspo (BMX 1:1:1) 1:1:1 liqd Take 5 mL by mouth every 6 hours as needed.500 mL 1 07/12/2024 Active0.5 ml dulaglutide 3 mg/ml auto-injector (20 sources)GLP-1 Receptor AgonistStart: 66-18-9761Zrlyjamol 1.5 MG/0.5ML Solution Auto-injector injection Inject 0.5 mL under the skin every 7 days. 0 01/23/2025 ActiveStart: 08-17-2024 End: 56-70-0987Kxyiafpqn 1.5 MG/0.5ML solution auto-injector INJECT SUBCUTANEOUSLY ONCE A WEEK DIRECTED 08/17/2024 02/28/2025 Discontinued (Therapy completed)Start: 98-85-4770rlapge 0.75 mg by subcutaneous injection onceTRULICITY 0.75 mg/0.5 mL pen injector Inject 0.75 mg subcutaneously one time a week. Per PCP 07/29/2024 ActiveStart: 11-16-2022 End: 79-27-9561qwrqxt 1.5 mg by subcutaneous injection every weekdulaglutide (TRULICITY) 1.5 mg/0.5 mL pen injector Indications: Obesity, Class II, BMI 35- 39.9 , Prediabetes Inject 1.5 mg subcutaneously one time a week. 2 mL 0 11/16/2022 ActiveStart: 10-16-2022 End: 32-79-0707nkqdqp 0.75 mg by subcutaneous injection every weekdulaglutide (TRULICITY) 0.75 mg/0.5 mL pen injector Indications: Obesity, Class III, BMI 40- 49.9 (morbid obesity) (HCC) , Pre-diabetes Inject 0.75 mg subcutaneously one time a week. 2 mL 0 10/16/2022ctiveStart: 09-07-2022 End: 54-96-7614rkhypp 0.75 mg by subcutaneous injection every weekdulaglutide [...] capsule (20 sources)Serotonin and Norepinephrine Reuptake InhibitorStart: 43-51-8081vjkv 1 capsule by mouth once dailyDULoxetine [address] Particles capsule DR Take 1 capsule by mouth daily. 02/22/2025 ActiveStart: 28-40-6274wftx 1 capsule by mouth once dailyDuloxetine 20 mg capsule,delayed release(DR/EC) Active 20 MG PO Daily December 12, 2024 12:00am Complies with drug therapyStart: 02-01-2024 End: 55-85-6866wgrw 1 capsule by mouth once dailyDULoxetine (Cymbalta) [address] capsule Take 20 mg by mouth Daily 02/01/2024 03/16/2024 DiscontinuedStart: 10-29-2022 End: 47-88-8941xgxm 1 capsule by mouth once dailyDULoxetine (CYMBALTA) 20 mg capsule Indications: Depression, recurrent (HCC) , Chronic pain syndrome Take 1 capsule by mouth once daily. 30 capsule 2 10/29/2022 04/26/2023 Discontinued (Course of therapy completed)Start: 03-09-2022 End: 77-62-0616irjm 1 capsule by mouth once dailyDULoxetine (CYMBALTA) 20 mg capsule Take 1 capsule by mouth once daily. 30 capsule 2 03/09/2022 Active Comment on above:Take 1 capsule by mouth once daily.ergocalciferol 1.25 mg oral capsule (20 sources)Provitamin D2 CompoundStart: 92-43-0761Ogxoaphdqnemgg (Vitamin D2) 1,250 mcg (50,000 unit) capsule Active 62173 UNIT PO 3 Times a week November 13, 2024 11:23am Complies with drug therapyStart: 04-02-2024 End: 07-00-7320xxfocldtmazzit 50,000 unit capsule (VITAMIN D2, DRISDOL) Indications: Vitamin D deficiency Take 1cap by mouth twice a week x 10weeks, then once a week with food. 24 capsule 1 04/02/2024 07/09/2024 Discontinued Start: 10-20-2023 End: 42-60-3619uzfu 1 capsule by mouth every weekErgocalciferol 1.25 MG (08909 UT) capsule Take 1 capsule by mouth once a week. 10/06/2024 ActiveStart: 10-31-2022 End: 97-39-4291xdjx 1 capsule by mouth every weekergocalciferol (DRISDOL) 1,250 mcg (50,000 unit) capsule Take 1 capsule (50,000 Units total) by mouth once a week. 10/20/2023 ActiveStart: 55-58-7730xmexsdgeeqcxbo 50,000 unit capsule (VITAMIN D2, DRISDOL) Indications: Vitamin D deficiency (take bymouth with food 3times a week, ONE CAPSULE ON Mondays, Fridays) FOR A TOTAL OF 8 WEEKS, then once aweek thereafter. 28 capsule 1 05/18/2022 ActiveStart: 10-26-2021 End: 06-15-1938kzeclybxghmudd 50,000 unit capsule (VITAMIN D2, DRISDOL) Indications: Vitamin D deficiency (take bymouth with food 2times a week, ONE CAPSULE ON Mondays, Fridays) FOR A TOTAL OF 8 WEEKS, then once aweek thereafter. 20 capsule 1 03/05/2022 ActiveStart: 71-20-2141ucklvdwdfosncu 50,000 unit capsule (VITAMIN D2, DRISDOL) Indications: Vitamin D deficiency (take bymouth with food 3times a week, ONE CAPSULE ON Mondays, Wed, Fridays) FOR A TOTAL OF 8 WEEKS. 24 capsule 0 03/06/2021 Activetake 1 capsule by mouth every week ergocalciferol (Vitamin D2) 1.25 MG (20163 UT) capsule Take 50,000 Units by mouth [...] / Ferrous fumarate / Norethindrone (20 sources)EstrogenStart: 39-18-5214lmdd 1 tablet by mouth once dailyLo Loestrin Fe 1 MG-10 MCG / 10 MCG tablet Take 1 tablet by mouth daily. 11/17/2024 ActiveStart: 87-45-0630ysqn 1 tablet by mouth once dailyLO LOESTRIN FE 1 mg-10 mcg (24)/10 mcg (2) Take 1 tablet by mouth once daily. 11/17/2024 ActiveStart: 03-23-2024 End: 04-82-9859heyu 1 tablet by mouth once dailynorethindrone-ethinyl estradiol- iron (Lo Loestrin Fe) 1 MG-10 MCG / 10 MCG tablet Indications: Menorrhagia with regular cycle Take 1 tablet by mouth Daily Take 1 tablet by mouth daily 28 tablet 11 03/23/2024 02/28/2025 Discontinued (Therapy completed)Start: 03-23-2024 End: 54-25-1166ndjo 1 tablet by mouth once dailynorethindrone-ethinyl estradiol- iron (Lo Loestrin Fe) 1 MG-10 MCG / 10 MCG tablet Indications: Menorrhagia with regular cycle Take 1 tablet by mouth Daily Take 1 tablet by mouth daily 28 tablet 11 03/23/2024 02/22/2025 Activefidaxomicin 200 mg oral tablet (20 sources)Macrolide AntibacterialStart: 96-20-8148vvev 1 tablet by mouth twice dailyfidaxomicin 200 MG tablet Take 1 tablet by mouth 2 times daily. 02/28/2025 ActiveStart: 06-15-2024 End: 55-53-1776vyvx 1 tablet by mouth once in the morningfidaxomicin (Dificid) 200 MG tablet Indications: H/O Clostridium difficile infection Take 1 tablet ( 200 mg) by mouth in the morning and 1 tablet (200 mg) before bedtime. Do all this for 10 days. 20 tablet 06/15/2024 06/25/2024 ActiveStart: 10-20-2023 End: 59-27-2379boay 1 tablet by mouth every other dayFidaxomicin (Dificid) 200 mg tablet Discontinued 200 MG PO .every other day October 20, 2023 12:00am December 16, 2023 2:11pmStart: 10-20-2023 End: 10-88-7565zrst 1 tablet by mouth every twelve hoursFidaxomicin (Dificid) 200 mg tablet Discontinued 200 MG PO Every 12 hours 20 10 0 October 20, 2023 12: 00am December 16, 2023 2:11pmfludrocortisone acetate 0.1 mg oral tablet (3 sources)Start: 06-01-2023 End: 62-57-4785hqgq 1 tablet by mouth at bedtimefludrocortisone (Florinef) 0.1 MG tablet Indications: Autonomic dysfunction Take 1 tablet (0.1 mg) by mouth at bedtime 30 tablet 11 06/01/2023 05/31/2024 Activefluocinonide 0.5 mg/ml topical solution (20 sources)CorticosteroidStart: 07-15-2023 End: 80-02-3652ifcwbfyeuffe (Lidex) 0.05 % external solution Indications: Other seborrheic dermatitis Apply to affected areas on the scalp, up to twice a day when flared, 30 day supply 60 mL 11 07/25/2024 ActiveStart: 10-20-2022 Fluocinonide 0.05 % solution Active 1 APPLIC TOPICAL Daily as needed for rash October 20, 2023 12:00am Complies with drug therapyfluticasone propionate 0.05 mg/actuat metered dose nasal spray (20 sources)CorticosteroidStart: 18-41-7989kqzg 2 spray(s) nasal route in the morningfluticasone [...] acid 1 mg oral tablet (20 sources)Start: 07-93-5766Lmeur Acid 1 mg tablet Active PO Daily December 12, 2024 12:00am Complies with drug therapyStart: 03-18-2022 End: 77-08-0814hkbe 1 tablet by mouth in the morningfolic acid (Folvite) 1 MG tablet Take 1 mg by mouth in the morning. 01/15/2023 ActiveComment on above:Take 1 tablet by mouth once daily.TAKE 1 TABLET BY MOUTH EVERY DAYhydroxychloroquine sulfate 200 mg oral tablet (20 sources)Antimalarial, Antirheumatic AgentStart: 14-58-7883bqkzFANsbtgpxTOGVA (PLAQUENIL) 200 mg tablet Indications: CHRISTIAN positive , Other systemic lupus erythematosus with other organ involvement (HCC) TAKE 1 TAB TWICE A DAY WITH FOOD *SUNSCREEN WHILE OUTDOORS/OPHTHAMOLOGY EVERY 6-12 MONTHS WHILE ON* 60 tablet 11 01/23/2025 ActiveStart: 83-07-6724oeuz 2 tablets by mouth once daily Hydroxychloroquine 200 mg tablet Active 400 MG PO Daily October 20, 2023 12:00am Complies with drug therapyStart: 05-01-3840pmsb 400 mg by mouth once daily Hydroxychloroquine Active 400 MG PO Daily October 20, 2023 12:00amStart: 10-19-2023 End: 58-96-1652atveRNYyguhayBEQFX (PLAQUENIL) 200 mg tablet Indications: CHRISTIAN positive [...] 180 tablet 3 10/30/2022 ActiveStart: 05-05-2021 End: 87-46-8011ojerIGYzznurfBWWHD (PLAQUENIL) 200 mg tablet Indications: CHRISTIAN positive [...] at the same time. 0 Active End: 92-67-6563bfbrreqpqbikdohyyh sulfate (HYDROXYCHLOROQUINE ORAL) Hydroxychloroquine Sulfate Active 0 03/12/2022iscontinued (Duplicate Entry) Hydroxychloroquine Sulfate ActiveComment on above:Take one tab by mouth twice a day with food. Sunscreen when outdoors. See ophthalmology every 6-12months on med.Hydroxychloroquine Sulfate ActiveTAKE 1 TAB TWICE A DAY WITH FOOD *SUNSCREEN WHILE OUTDOORS/OPHTHAMOLOGY EVERY 6-12 MONTHS WHILE ON*hyoscyamine sulfate 0.125 mg oral tablet (2 sources)Start: 21-88-7455ephf 1 tablet by mouth every six hours as needed for painhyoscyamine (Anaspaz,Levsin) 0.125 MG tablet TAKE 1 TABLET BY MOUTH EVERY 6 HOURS NEEDED FOR ABDOMINAL PAIN 0 06/27/2023 Activeibuprofen 400 mg oral tablet (20 sources)Nonsteroidal Anti-inflammatory DrugStart: 64-46-8342Wupaolfhi 400 mg tablet Active 400 MG PO 2-3 TIMES PER DAY as needed for pain January 31, 2025 12:00am Complies with drug therapyibuprofen 200 MG tablet every 8 (eight) hours Activetake 4 tablets by mouth every eight hoursIbuprofen 200 MG tablet Take 4 tablets by mouth Every 8 hours. Activeibuprofen (MOTRIN) 200 mg tablet Take 600 mg by mouth. Activetake 1 tablet by mouth every six hours as needed for painibuprofen (ADVIL;MOTRIN) 200 MG tablet Take 200 mg by mouth every 6 hours as needed for Pain 0 ActiveComment on above:Take 600 mg by mouth. Immunoglobulin G (20 sources)Human Immunoglobulin GStart: 23-07-5058Nnurv: 73-32-4051usyurzfse Active IV EVERY 4 WEEKS December 12, 2024 10:58am Complies with drug therapyStart: 12-12-2024 End: 08-55-8383wzllnbkcr Discontinued IV December 12, 2024 12:00am December 12, 2024 10:58amimmune globulin, human, (Gammagard) infusion Infuse into a venous catheter Activeimmune globulin, human, (Gammagard) infusion Infuse into a venous catheter 1 time. Activemagnesium citrate 58.2 mg/ml oral solution (2 sources)Start: 16-40-0776RTA Magnesium Citrate oral solution TAKE HALF OF THE BOTTLE WITH 8 OZ OF WATER, TAKE THE OTHER HALFAFTER 1 HOUR WITH 8 OZ OF WATER 0 06/27/2023 Activemethocarbamol 750 mg oral tablet (1 source)Muscle RelaxantStart: 18-11-9990btmv 1 tablet by mouth twice daily Methocarbamol 750 MG tablet Take 1 tablet by mouth 2 times daily. 01/02/2025 Activemetoprolol tartrate 50 mg oral tablet (20 sources)beta-Adrenergic BlockerStart: 07-26-2024 End: 42-31-5438mlzx 1 tablet by mouth four times dailymetoprolol tartrate (Lopressor) 50 mg tablet Indications: Paroxysmal supraventricular tachycardia ([facility]) , Essential hypertension Take 1 tablet by mouth 4 times a day. 360 tablet 3 07/26/2024 07/26/2025 ActiveStart: 07-00-0685uckq 4 tablets by mouth once dailyMetoprolol Tartrate 50 mg tablet Active 200 MG PO Daily October 20, 2023 12:00am Complies with drug therapyStart: 56-33-5727mgmv 200 mg by mouth once dailyMetoprolol Tartrate Active 200 MG PO Daily October 20, 2023 12:00amStart: 02-68-3632splw 50 mg by mouth once dailyMetoprolol Tartrate Active 50 MG PO Daily October 20, 2023 12:00amStart: 05-25-2022 End: 41-85-6367yffv 2 tablets by mouth in the morningmetoprolol tartrate (Lopressor) 50 MG tablet Take 100 mg by mouth in the morning and 100 mg before b edtime. 04/23/2023 ActiveStart: 34-29-6951mbqm 1 tablet by mouth twice daily metoprolol tartrate, short acting, (LOPRESSOR) 50 mg tablet Take 50 mg by mouth twice daily. 05/25/2022 ActiveStart: 07-29-2020 End: 35-12-8140cfrk 1 tablet by mouth twice dailymetoprolol tartrate, short acting, (LOPRESSOR) 25 mg tablet Take 25 mg by mouth twice daily. 0 07/29/2020 ActiveComment on above:Take 25 mg by mouth twice daily.Take 50 mg by mouth twice daily.montelukast 10 mg oral tablet (5 sources)Leukotriene Receptor AntagonistStart: 05-25-2023 End: 26-65-3718kivj 1 tablet by mouth once daily at bedtimemontelukast (Singulair) 10 mg tablet Take 1 tablet (10 mg) by mouth once daily at bedtime. 0 05/25/2023 05/24/2024 ActiveNaltrexone (15 sources)Opioid AntagonistStart: 01-19-2022 End: 73-38-4110zzvk 1 capsule by mouth once dailynaltrexone capsule 1 mg TAKE ONE CAPSULE BY MOUTH DAILY 0 01/19/2022 07/25/2022 DiscontinuedStart: 01-19-2022 take 1 capsule by mouth once dailynaltrexone capsule 1 mg TAKE ONE CAPSULE BY MOUTH DAILY 0 01/19/2022 ActiveComment on above:TAKE ONE CAPSULE BY MOUTH DAILY nitroglycerin 0.4 mg sublingual tablet (20 sources)Nitrate VasodilatorStart: 10-07-2020 End: 31-88-1454ykohjifcajmao sublingual (NITROQUICK) 0.4 mg SL tablet Dissolve 0.4 mg under the tongue. 0 10/07/2020 07/25/2022 DiscontinuedComment on above: Dissolve 0.4 mg under the tongue.nystatin 474218 unt/ml oral suspension (20 sources)Polyene AntifungalStart: 30-57-3589kfli 4 mL by mouth every six hoursNystatin 928043 UNIT/ML oral suspension Swish and spit 4 mL Every 6 hours. 11/06/2024 ActiveStart: 81-51-5035oogv 4 mL by mouth four times dailynystatin (MYCOSTATIN) 100,000 unit/mL suspension TAKE 4 ML BY MOUTH / THROAT 4 TIMES A DAY FOR 7 DAYS 11/06/2024 ActiveStart: 07-31-2024 End: 13-65-8141qdol 1 mL by mouth once dailyNystatin 100,000 unit/mL suspension Discontinued 1 ML PO Daily July 31, 2024 12:00am December 12, 2024 10:49am swish and swallowStart: 07-25-2024 End: 18-26-4024jopgwqic (Mycostatin) 891090 UNIT/ML suspension Indications: Rash and other nonspecific skin eruption Take 4 mL (400,000 Units) by mouth in the morning and 4 mL (400,000 Units) at noon and 4 mL (400,000 Units) in the evening and 4 mL (400,000 Units) before bedtime. Do all this for 14 days. 224 mL 08/08/2024 ActiveStart: 01-27-2024 End: 73-07-6508nfhefwjn (MYCOSTATIN) 100,000 unit/mL suspension Take 5 mL by mouth four times daily for 7 days. SWISH AND SWALLOW 1 TEASPOON(S) (5ML) 4 TIMES PER DAY. 140 mL 01/27/2024 02/03/2024 ActiveStart: 21-24-5100rjrurmls (Mycostatin) cream Indications: Candidiasis of skin Apply to left armpit BID until clear 15 g 01/15/2023 Activeondansetron 4 mg disintegrating oral tablet (2 sources)Serotonin-3 Receptor AntagonistStart: 53-60-8071igps 1 tablet by mouth every six hours as needed for nausea and vomitingondansetron ODT (Zofran- ODT) 4 MG disintegrating tablet DISSOLVE 1 TABLET IN MOUTH EVERY 6 HOURS NEEDED FOR NAUSEA AND VOMITING 0 06/27/2023 Activepantoprazole 20 mg delayed release oral tablet (20 sources)Proton Pump InhibitorStart: 53-24-0451cdjv 2 tablets by mouth twice dailyPantoprazole 20 mg tablet,delayed release (DR/EC) Active 40 MG PO Twice daily November 13, 2024 11:24am Complies with drug therapyStart: 70-72-1926zqaw 2 tablets by mouth once dailyPantoprazole 20 mg tablet,delayed release (DR/EC) Active 40 MG PO Daily November 13, 2024 11:24am Complies with drug therapyStart: 07-38-6002cqgk 1 tablet by mouth at breakfastpantoprazole DR (PROTONIX) 40 mg tablet TAKE 1 TABLET BY MOUTH 1/2 TO 1 HOUR BEFORE MORNING MEAL 10/21/2024 ActiveStart: 07-19-2024 End: 94-04-1424wppr 1 tablet by mouth once dailyPantoprazole 20 mg tablet,delayed release (DR/EC) Discontinued 20 MG PO Daily July 19, 2024 1:00am November 13, 2024 11:24amStart: 01-26-2024 End: 33-54-9393poze 1 tablet by mouth once dailypantoprazole (ProtoNix) 40 MG EC tablet Take 40 mg by mouth Daily 01/26/2024 03/16/2024 DiscontinuedStart: 09-22-2023 End: 70-15-2234wvcl 1 tablet by mouth once dailyPantoprazole 40 mg tablet,delayed release (DR/EC) Discontinued 40 MG PO Daily September 22, 2023 12:00am October 20, 2023 1:07pm Take 1 tablet orally once a day.phentermine hydrochloride 37.5 mg oral tablet (20 sources)Sympathomimetic Amine AnorecticStart: 04-26-2023 End: 20-71-9369nyue 1 tablet by mouth before mealtimephentermine (Adipex-P) 37.5 MG tablet Take 37.5 mg by mouth in the morning. Take before meals. 05/26/2023 ActiveComment on above:Take 1 tablet by mouth daily before breakfast for 30 days.Take 1 tablet by mouth daily before breakfast for 90 days.pilocarpine hydrochloride 5 mg oral tablet (13 sources)Cholinergic Receptor AgonistStart: 95-29-1419epyi 1 tablet by mouth three times dailypilocarpine 5 MG tablet Take 1 tablet by mouth 3 (three) times a day. 2024 ActiveStart: 07-12-2024 End: 06-83-2286gcyc 1 tablet by mouth three times dailypilocarpine (SALAGEN) 5 mg tablet TAKE 1 TABLET BY MOUTH THREE TIMES A DAY 135 tablet 1 08/07/2024 0 09/06/2024 Activepravastatin sodium 20 mg oral tablet (20 sources)HMG-CoA Reductase InhibitorStart: 84-35-6206nnza 1 tablet by mouth once dailyPravastatin 20 MG tablet Take 1 tablet by mouth daily. 05/03/2024 ActiveStart: 01-26-2024 End: 84-25-7058smzw 1 tablet by mouth once dailypravastatin (Pravachol) 20 MG tablet Take 20 mg by mouth Daily 01/26/2024 03/16/2024 DiscontinuedStart: 10-20-2023 End: 59-65-7760ifxu 1 tablet by mouth once dailyPravastatin 20 mg tablet Discontinued 20 MG PO Daily October 20, 2023 12:00am October 20, 2023 1:08pmStart: 99-69-7901hlvm 1 tablet by mouth once dailypravastatin (Pravachol) 20 MG tablet TAKE 1 TABLET BY MOUTH EVERY DAY FOR 30 DAYS 0 06/24/2023 ActivepredniSONE 10 mg oral tablet (20 sources)Start: 08-38-9815uiog 1 tablet by mouth once daily at mealtime predniSONE 10 MG tablet Take 1 tablet by mouth As directed. Take 40mg daily x 3, decrease by 5mg every 3days until taking 10mg daily with food thereafter (no oral nsaids) 01/23/2025 ActiveStart: 88-51-2734jwkfagDTUN (DELTASONE) 10 mg tablet Indications: Other systemic lupus erythematosus with other organ involvement (HCC) Take 40mg daily x 3, decrease by 5mg every 3days until taking 10mg daily with food thereafter (no oral nsaids) 120 tablet 1 01/23/2025 Active Start: 06-22-2024 End: 12-35-3237lfvpivZONH (DELTASONE) 10 mg tablet Indications: Other systemic lupus erythematosus with other organ involvement (HCC) Take 40mg daily x 3, decrease by 5mg every 3days until taking 10mg daily with food thereafter (no oral nsaids) 120 tablet 1 10/07/2024 ActiveStart: 01-12-2024 End: 20-68-1770xpxiqdKOLD (DELTASONE) 10 mg tablet Indications: Other systemic [...] 12:00am Complies with drug therapyStart: 05-12-2023 End: 63-39-8560fady 1 tablet by mouth once dailyPrednisone 10 mg tablet Active 10 MG PO Daily October 20, 2023 12:00am Complies with drug therapyStart: 05-12-2023 End: 50-45-5404ayjzbwJUKK (DELTASONE) 10 mg tablet Indications: Other systemic lupus erythematosus with other organ involvement (HCC) Take 40mg daily x 5days, then decrease 5mg every 5days until 10mg daily thereafter 120 tablet 1 05/12/2023 10/05/2023 DiscontinuedStart: 61-95-9826aghjbkJIKO (DELTASONE) 10 mg tablet Indications: Other systemic lupus erythematosus with other organ involvement (HCC) Take 40mg daily x 5days, then decrease 5mg every 5days until 10mg daily thereafter 120 tablet 1 08/17/2022 ActiveStart: 06-01-2022 End: 18-19-4746jkhy 1 tablet by mouth once dailypredniSONE (DELTASONE) 10 mg tablet Take 10 mg by mouth once daily. 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 08/16/2023 Activethiamine 100 mg oral tablet (20 sources)Start: 15-08-1752etau 1 tablet by mouth once daily as neededThiamine Hcl (Vitamin B1) 100 mg tablet Active MG PO Daily as needed December 12, 2024 12:00am Complies with drug therapyStart: 06-01-2023 End: 11-38-4768evyf 1 tablet by mouth once dailyThiamine 100 MG tablet Take 1 tablet by mouth daily. 10/27/2024 ActiveTirzepatide (Mounjaro) 2.5 MG/0.5ML Solution Auto-injector (1 source)Start: 15-26-2807Kyuggljfhgf (Mounjaro) 2.5 MG/0.5ML Solution Auto- injector Inject 2.5 mg under the skin every 7 days. 02/26/2025 Activetopiramate 25 mg oral tablet (20 sources)Start: 04-26-2023 End: 71-09-7864kund 1 tablet by mouth twice dailytopiramate (TOPAMAX) 25 mg tablet Indications: Other chronic pain Take 1 tablet by mouth two times a day. 180 tablet 05/26/2023 03/18/2024 Discontinued (Course of therapy completed) Comment on above:Take 1 tablet by mouth two times a day.tretinoin 0.25 mg/ml topical cream (20 sources)RetinoidStart: 79-38-1412gjfshgdtr (Retin-A) 0.025 % cream Indications: Acne vulgaris Apply to face, once daily at evening/night time, 30 day supply 45 g 11 11/23/2024 ActiveStart: 50-49-7067ydhqnymkd (Retin-A) 0.05 % cream Indications: Striae atrophic Apply to face, once daily at evening/night time, 30 day supply 20 g 11 07/15/2023 ActiveVitamin D 50 MCG (2000 UT) (4 sources)take 1 tablet by mouth every weekVitamin D 50 MCG (2000 UT) 1 tablet Orally weekly Active Completed/Discontinued Medications MedicationDrug Class(es)DatesSig (Normalized)Sig (Original)acyclovir 400 mg oral tablet (20 sources)Herpesvirus Nucleoside Analog DNA Polymerase Inhibitor, Herpes Simplex Virus Nucleoside Analog DNA Polymerase Inhibitor, Herpes Zoster Virus Nucleoside Analog DNA Polymerase InhibitorStart: 10-03-2021 End: 88-01-8950lqlb 1 tablet by mouth once dailyacyclovir (ZOVIRAX) 400 mg tablet Take 400 mg by mouth once daily. 0 10/03/2021 04/26/2023 Discontinued (Discontinued by Patient)Comment on above:Take 400 mg by mouth once daily. amLODIPine 5 mg oral tablet (8 sources)Dihydropyridine Calcium Channel BlockerStart: 02-03-2024 End: 58-59-2629qjug 1 tablet by mouth once dailyamLODIPine (Norvasc) 5 MG tablet Take 5 mg by mouth Daily 02/03/2024 03/16/2024 DiscontinuedStart: 10-07-2020 take 1 tablet by mouth once dailyamLODIPine (NORVASC) 2.5 MG tablet Take 1 tablet by mouth daily 30 tablet 3 10/07/2020 ActiveazaTHIOprine 50 mg oral tablet (20 sources)Purine AntimetaboliteStart: 05-24-2023 End: 55-94-5349vbkf 1 tablet by mouth three times dailyAzathioprine 50 mg tablet Discontinued 50 MG PO Three times daily October 20, 2023 12:00am October 11:22amStart: 05-24-2023 End: 97-30-8222zzhg 3 tablets by mouth once dailyazaTHIOprine (Imuran) 50 MG tablet Take 150 mg by mouth Daily 05/24/2023 02/28/2025 Discontinued (Therapy completed)Start: 33-29-2262bfro 50 mg by mouth twice dailyAzathioprine Active 50 MG PO Twice daily October 20, 2023 12:00amStart: 14-97-8730ulyv 3 tablets by mouth three times dailyazaTHIOprine (Imuran) 50 mg tablet Take 3 tablets (150 mg) by mouth 3 times a day. 02/16/2023 ActiveStart: 11-24-2022 End: 57-89-3473ylds 3 tablets by mouth once daily at mealtimeazaTHIOprine (IMURAN) 50 mg tablet Indications: Other systemic lupus erythematosus with other organinvolvement (HCC) , Encounter for [facility] current use of azathioprine TAKE 3 TABLETS BY MOUTH DAILY WITH FOOD. HOLD IF ON ANTIBIOTICS OR ILL. 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 Hold if on antibiotics or ill. 60 tablet 3 08/19/2022 11/24/2022 DiscontinuedStart: 06-15-2022 End: 07-95-1594iava 1 tablet by mouth once daily at [...] (20 sources)B Lymphocyte Stimulator-specific InhibitorStart: 11-13-2024 End: 65-38-1585hqgqdkulj (Benlysta) Discontinued IV every month November 13, 2024 12:00am March 13, 2025 9:07amStart: 08-57-9140barxlyvpj (Benlysta) Active IV every month November 13, 2024 12:00am Complies with drug therapyStart: 11-13-2024 Start: 95-01-7131Cszexwhb 200 MG/ML Solution Auto-injector Inject 200 mg under the skin every 7 days. 09/18/2024 ActiveStart: 02-04-2023 End: 23-08-3861fvxarq 200 mg by subcutaneous injection every weekbelimumab (Benlysta) 200 MG/ML injection Inject 200 mg under the skin 1 (one) time per week 02/04/2023 ActiveComment on above:Inject 200mg (1 pen) subcutaneously once [...] 125 mL/hr, Administer over 120 Minutes, ONCE, 1dose, On Wed09/18/24 at 1400, Total Volume - EXP: 09/18/2024 1935 RT Protect From Lightbiotin 10 mg oral tablet (20 sources) End: 03-91-9458Habjhn 10 mg tab 2 0 04/26/2023 Discontinued (Discontinued by Patient)Comment on above:2dexamethasone 2 mg oral tablet (9 sources)CorticosteroidStart: 01-20-2024 End: 38-37-3522ytjRHZWHczfbn (Decadron) 2 MG tablet Indications: Lumbosacral radiculopathy at L5 2mg 3 pills po X3days,2 pills po daily X3 days , then 1 pill po daily X3 days then stop 9 days 18 pills 18 tablet 1 01/20/2024 03/16/2024 Discontinueddicyclomine hydrochloride 10 mg oral capsule (20 sources)AnticholinergicStart: 01-25-2024 End: 80-57-6211lied 1 capsule by mouth in the morning, then take 1 capsule by mouth in the evening, then take 1 capsule by mouth at bedtimedicyclomine (Bentyl) 10 MG capsule Take 10 mg by mouth in the morning and 10 mg in the evening and 10 mg before bedtime. 01/25/2024 03/16/2024 DiscontinuedStart: 09-22-2023 End: 21-70-8103isju 1 capsule by mouth twice daily as needed for painDicyclomine 10 mg capsule Discontinued 10 MG PO Twice daily as needed for abdominal pain 60 30 5 September 22, 2023 12:00am October 20, 2023 1:07pm Take 1 capsule orally twice a day prndiphenhydrAMINE (15 sources)Histamine-1 Receptor AntagonistStart: 01-24-2025 End: 13-41-971486 mg, INTRAVENOUS, ONCE, 1 dose, On Wed01/24/25 at 0930Start: 01-11-2025 End: 69-48-9181ksit 1 dose by mouth once25 mg, ORAL, ONCE, 1 dose, On Wed01/11/25 at 1430Start: 12-14-2024 End: 22-35-3140wrlq 1 dose by mouth once25 mg, ORAL, ONCE, 1 dose, On Wed12/14/24 at 1430Start: 11-29-2024 End: 38-28-488799 mg, INTRAVENOUS, ONCE, 1 dose, On Wed11/29/24 at 1000Start: 11-16-2024 End: 36-83-2120nthd 1 dose by mouth once25 mg, ORAL, ONCE, 1 dose, On Wed11/16/24 at 1400Start: 10-31-2024 End: 22-83-944617 mg, INTRAVENOUS, ONCE, 1 dose, On Wed10/31/24 at 1000Start: 10-19-2024 End: 55-40-3727wqqg 1 dose by mouth once25 mg, ORAL, ONCE, 1 dose, On Wed10/19/24 at 1430Start: 2024 End: 47-38-0315mvfm 1 dose by mouth once25 mg, ORAL, ONCE, 1 dose, On Wed10/04/24 at 1430Start: 10-02-2024 End: 88-00-251344 mg, INTRAVENOUS, ONCE, 1 dose, On Wed10/02/24 at 0900Start: 09-18-2024 End: 61-18-4683zwwv 1 dose by mouth once25 mg, ORAL, ONCE, 1 dose, On Wed09/18/24 at 1300Start: 09-06-2024 End: 25-63-059797 mg, INTRAVENOUS, ONCE, 1 dose, On Wed09/06/24 at 0930Start: 08-08-2024 End: 22-41-391918 mg, INTRAVENOUS, ONCE, 1 dose, On Wed08/08/24 at 0930Start: 07-11-2024 End: 55-11-783767 mg, INTRAVENOUS, ONCE, 1 dose, On Wed07/11/24 at 0900Start: 06-13-2024 End: 70-79-801904 mg, INTRAVENOUS, ONCE, 1 dose, On Wed06/13/24 at 1000Start: 05-19-2024 End: 95-46-098256 mg, INTRAVENOUS, ONCE, 1 dose, On Wed05/19/24 at 1000 famotidine 20 mg oral tablet (19 sources)Histamine-2 Receptor AntagonistStart: 04-10-2024 End: 94-92-2865nqjy 1 tablet by mouth at bedtimefamotidine (Pepcid) 20 MG tablet Indications: LPRD (laryngopharyngeal reflux disease) Take 1 tablet(20 mg) by mouth at bedtime 90 tablet 04/10/2024 09/04/2024 Discontinued (Therapy completed)Start: 07-21-2020 End: 47-89-2394amsx 1 tablet by mouth once daily at [...] mg/mg topical ointment (20 sources)Start: 11-22-2023 End: 73-60-5335Tontqxdqkn 0.1 % ointment Discontinued 1 APPLIC TOPICAL Three times daily 15 10 0 November 22, 2023 12:00am December 16, 2023 2:12pmhydrocortisone 100 mg injection (9 sources)CorticosteroidStart: 01-24-2025 End: 62-61-773435 mg, INTRAVENOUS, ONCE, 1 dose, On Wed01/24/25 at 0930Start: 11-29-2024 End: 22-83-972743 mg, INTRAVENOUS, ONCE, 1 dose, On Wed11/29/24 at 1000Start: 10-31-2024 End: 81-13-338182 mg, INTRAVENOUS, ONCE, 1 dose, On Wed10/31/24 at 1000Start: 10-02-2024 End: 73-94-956692 mg, INTRAVENOUS, ONCE, 1 dose, On Wed10/02/24 at 0900Start: 09-06-2024 End: 39-54-944210 mg, INTRAVENOUS, ONCE, 1 dose, On Wed09/06/24 at 0930Start: 08-08-2024 End: 40-82-154182 mg, INTRAVENOUS, ONCE, 1 dose, On Wed08/08/24 at 0930Start: 07-11-2024 End: 63-15-900495 mg, INTRAVENOUS, ONCE, 1 dose, On Wed07/11/24 at 0900Start: 06-13-2024 End: 40-06-399478 mg, INTRAVENOUS, ONCE, 1 dose, On Wed06/13/24 [...] oral capsule (3 sources)Azole AntifungalStart: 04-03-2024 End: 95-90-8631domx 1 capsule by mouth once dailyitraconazole (Sporanox) 100 MG capsule Indications: Oral thrush Take 1 capsule (100 mg) by mouth Daily for 5 days 5 capsule 04/03/2024 04/08/2024 Expiredomeprazole 40 mg delayed release oral capsule (20 sources)Proton Pump InhibitorStart: 03-16-2024 End: 81-25-7914wizt 1 capsule by mouth once dailyOmeprazole 40 mg capsule,delayed release(DR/EC) Discontinued 40 MG PO Daily 30 30 3 March 16, 2024 12:00am July 19, 2024 10:52amStart: 08-09-2020 End: 92-34-9026kxtg 1 capsule by mouth twice dailyomeprazole (PRILOSEC) [...] mg oral capsule (20 sources)Start: 12-15-2023 End: 83-85-1617cnro 1 capsule by mouth in the morning, then take 1 capsule by mouth in the evening, then take 1 capsule by mouth at bedtimepregabalin (Lyrica) 100 MG capsule Indications: Lumbosacral radiculopathy Take 1 capsule (100 mg) by mouth in the morning and 1 capsule (100 mg) in the evening and 1 capsule (100 mg) before bedtime. 90 capsule 2 12/15/2023 03/16/2024 DiscontinuedStart: 32-39-9237rszd 3 capsules by mouth once daily as needed for painPregabalin 75 mg capsule Active 225 MG PO Daily as needed for nerve pain October 20, 2023 12:00am Complies with drug therapyStart: 51-91-4402qzfe 225 mg by mouth once daily Pregabalin Active 225 MG PO Daily October 20, 2023 12:00amStart: 76-65-2750albq 1 capsule by mouth three times dailypregabalin (Lyrica) 100 MG capsule Indications: Lumbosacral radiculopathy TAKE 1 CAPSULE BY MOUTH THREE TIMES A DAY for 30 90 capsule 2 07/06/2023 ActiveStart: 10-13-2021 End: 04-08-8073jkud 1 capsule by mouth three times dailypregabalin [...] FUMARATE/FA ( VITAMIN ORAL) (2 sources) End: 33-50-5318tpxy 1 tablet by mouth once dailyPRENATAL VIT/IRON [...] tablet (9 sources)Factor Xa InhibitorStart: 12-06-2023 End: 97-75-6135spby 1 tablet by mouth at mealtimeXarelto 15 MG tablet Take 15 mg by mouth in the evening. Take with meals 12/06/2023 03/16/2024 Discontinued simvastatin 20 mg oral tablet (20 sources)HMG-CoA Reductase InhibitorStart: 03-10-2022 End: 45-99-8623hexddgwvtjp (ZOCOR) 20 mg tabletterbinafine 250 mg oral tablet (3 sources)Allylamine AntifungalStart: 04-02-2024 End: 50-61-2865mzdu 1 tablet by mouth once dailyterbinafine (LamISIL) 250 MG tablet Indications: Oral thrush Take 1 tablet (250 mg) by mouth Daily for 5 days 5 tablet 04/02/2024 04/03/2024 Discontinuedtriamcinolone acetonide 10 mg/ml injectable suspension (20 sources)CorticosteroidStart: 02-14-2025 End: 11-55-4344efobshbxdtaqw acetonide (Kenalog) injection 2.5 mgStart: 02-14-2025 End: .5 mg, Intra-lesional, Once, On Wed02/14/25 at 1545, For 1 dose Start: 11-23-2024 End: 48-26-0288ztpzzrigcgmrz 10 MG/ML injection 0.25 mL by Intralesional route once. 11/23/2024 ActiveStart: 15-38-7769gxmipejlmskpe acetonide (Kenalog) injection 2.5 mgStart: 75-96-3991Vcilzvzkdghyy Acetonide 0.025 % lotion 1 application 06/23/2022 Activetriamcinolone acetonide (KENALOG) 0.025 % lotion Apply 1 Application topically as needed. Activevitamin b12 1 mg/ml injectable solution (17 sources)Vitamin F44Mowjq: 11-29-2024 End: 32-30-9003wwxgdo 1 dose by intramuscular injection once1,000 mcg, INTRAMUSCULAR, ONCE, 1 dose, On Wed11/29/24 at 1000Start: 10-31-2024 End: 11-17-1013xevswd 1 dose by intramuscular injection once1,000 mcg, INTRAMUSCULAR, ONCE, 1 dose, On Wed10/31/24 at 1000Start: 10-02-2024 End: 73-23-7609qchnbl 1 dose by intramuscular injection once1,000 mcg, INTRAMUSCULAR, ONCE, 1 dose, On Wed10/02/24 at 0900Start: 09-06-2024 End: 82-14-9799osrqik 1 dose by intramuscular injection once1,000 mcg, INTRAMUSCULAR, ONCE, 1 dose, On Wed09/06/24 at 1000Start: 08-08-2024 End: 58-61-7797kdwdrf 1 dose by intramuscular injection once1,000 mcg, INTRAMUSCULAR, ONCE, 1 dose, On Wed08/08/24 at 0930Start: 07-11-2024 End: 55-15-2846xidlqk 1 dose by intramuscular injection once1,000 mcg, INTRAMUSCULAR, ONCE, 1 dose, On Wed07/11/24 at 0900Start: 06-13-2024 End: 05-40-2222wzfmqa 1 dose by intramuscular injection once1,000 mcg, INTRAMUSCULAR, ONCE, 1 dose, On Wed06/13/24 at 1000Start: 04-26-2024 End: 89-06-8363nhutln 1 dose by intramuscular injection once1,000 mcg, INTRAMUSCULAR, ONCE, 1 dose, On Wed04/26/24 at 0930Start: 03-23-2024 End: 70-29-2928fkzict 1 dose by intramuscular injection once1,000 mcg, INTRAMUSCULAR, ONCE, 1 dose, On Wed03/23/24 at 1030Start: 02-21-2024 End: 86-58-8159dwdazw 1 dose by intramuscular injection once1,000 mcg, INTRAMUSCULAR, ONCE, 1 dose, On Wed02/21/24 at 1100Start: 01-25-2024 End: 44-70-8498jeagys 1 dose by intramuscular injection once1,000 mcg, INTRAMUSCULAR, ONCE, 1 dose, On Wed01/25/24 at 1130Start: 61-99-7326ocnwel 1 mL by subcutaneous injection every 30 dayscyanocobalamin (VITAMIN B-12) 1,000 mcg/mL injection Inject 1 mL (1,000 mcg total) under the skin every 30 (thirty) days. 12/28/2023 ActiveStart: 12-27-2023 End: 18-28-8834zvqkwpnfmkezna 1,000 mcg injectionStart: 11-29-2023 End: 53-86-4459qgzfojjysgveja 1,000 mcg injectionStart: 10-27-2023 End: 05-19-3314cvxwmtbmmbqxjh 1,000 mcg injectionStart: 09-30-2023 End: 92-73-6830fbuaxbaxlkkogv 1,000 mcg injection Problems Active Problems Problem ClassificationProblemDateDocumented DateEpisodic/ChronicAbdominal pain (20 sources)Finding of sensation of abdomen; Translations: [Unspecified abdominal pain]Onset: 790911-11-9707DebvfaweLtdzogw disorders (20 sources)Anxiety; Translations: [Anxiety disorder, unspecified]Onset: 414075-41-0546RsnorgcJjlhimcpl infection; unspecified site (3 sources)Bacterial infection due to Pseudomonas; Translations: [Other bacterial infections of unspecified site]Onset: 302256-13-2128Cuxdisnd Cardiac dysrhythmias (20 sources)Postural orthostatic tachycardia syndrome ; Translations: [POTS (postural orthostatic tachycardia syndrome)]Onset: 14-28-0824ErrzeniXytnxedjgr and other anemia (9 sources)Anemia of chronic disease; Translations: [Anemia in other chronic diseases classified elsewhere]ChronicDeficiency and other anemia (1 source)Anemia in other chronic diseases classified elsewhere; Translations: [Anemia of chronic disease]Onset: 99-55-1920UzqqfwaNhzkgdzd mellitus without complication (15 sources)Type 2 diabetes mellitus; Translations: [Type 2 diabetes mellitus without complications]Onset: 396090-24-7752QaluhunCshnzxto of white blood cells (13 sources)Leukocytosis; Translations: [Elevated white blood cell count, unspecified]Onset: 927026-26-1314DqioopoJyjsnkrwn of lipid metabolism (20 sources)Hyperlipidemia; Translations: [Hyperlipidemia, unspecified]Onset: 132124-91-1110NicfzouYyvbwtamxh disorders (20 sources)Laryngopharyngeal reflux; Translations: [Gastro-esophageal reflux disease without esophagitis]Onset: 687090-31-7173CkqfmruRcptogbac hypertension (20 sources)Essential hypertension; Translations: [Essential (primary) hypertension]Onset: 853403-38-1709QltwbsbWrutm of unknown origin (1 source)Pyrexia of unknown origin; Translations: [Fever, unspecified] 09-83-1777RqbbwttuYyopwjru disorders (20 sources)Hypogammaglobulinemia; 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]Onset: 584000-63-8210QwdygqrEonwyksimtvbm and screening for infectious disease (20 sources)Anti-nuclear factor positive; Translations: [Other specified abnormal immunological findings in serum]Onset: 23-53-8049OmyilgftPcuhwtc and fatigue (20 sources)Malaise and fatigue; Translations: [Chronic fatigue, unspecified] Onset: 03-78-0575MwyrkvwIqpsdkhsd disorders (20 sources)Excessive and frequent menstruation with irregular cycle; Translations: [Menometrorrhagia]Onset: 88-60-9520UejsluvPspi disorders (20 sources)Recurrent depression; Translations: [Major depressive disorder, recurrent, unspecified]Onset: 214492-63-9431WtxrbxvRejhshn (3 sources)Candidiasis of mouth; Translations: [Candidal stomatitis]04-02-2024 EpisodicNeoplasms of unspecified nature or uncertain behavior (2 sources)Neoplasm of uncertain behavior of skin; Translations: [Neoplasm of uncertain behavior of skin]66-36-5062EnrmarzqXfnratcdnybv breast conditions (20 sources)Mammary duct ectasia; 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]Onset: 317314-89-5137ZmkegarOichchexrfrp breast conditions (20 sources)Discharge from nipple; Translations: [Nipple discharge]Onset: 751673-75-4145KahzawstYbguknbtjrk deficiencies (20 sources)Vitamin D deficiency; Translations: [Vitamin D deficiency, unspecified]Onset: 83-48-1843RxkvrehPhuzfarnevugyk (20 sources)Degenerative joint disease involving multiple joints; 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]Onset: 71-56-4008NgipkutNtbyigbsyyil (20 sources)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; Translations: [Other osteoporosis without current pathological fracture]Onset: 982369-06-9300 ChronicOther aftercare (3 sources)Drug therapy status; Translations: [Encounter for mcc current use of azathioprine]EpisodicOther aftercare (1 source)Polypharmacy ; Translations: [Other mcc (current) drug therapy] EpisodicOther aftercare (1 source)Long-term current use of drug therapy; Translations: [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]21-06-8653CkxubkycGiknj circulatory disease (20 sources)Raynaud's disease; Translations: [Raynaud's syndrome without gangrene]Onset: 546405-16-5293PtnjeisKimfu circulatory disease (2 sources)Spider nevus; Translations: [Nevus, non-neoplastic]15-92-6374Anfzoocn Other congenital anomalies (1 source)Emanuel-Danlos syndrome; 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, unspecified]67-31-6256OatjpyqAbjam connective tissue disease (1 source)Pain in left foot; Translations: [Pain in left foot]Onset: 09-14-2018 EpisodicOther connective tissue disease (1 source)Pain in right foot; Translations: [Pain in right foot]Onset: 03-92-7678DpihmfjiPirxt connective tissue disease (20 sources)Paraparesis; Translations: [Other symptoms and signs involving the musculoskeletal system]Onset: 455966-68-6607JufgfrwtTshgr connective tissue disease (3 sources)Pain of bilateral hands; Translations: [Pain in right hand]10-05-2023 EpisodicOther ear and sense organ disorders (2 sources)Pain of ear structure; Translations: [Otalgia, right ear]04-10-2024 EpisodicOther female genital disorders (2 sources)Abnormal uterine bleeding; Translations: [Abnormal uterine and vaginal bleeding, unspecified]48-11-6363GvtvolvMzatf gastrointestinal disorders (3 sources)Diarrhea, unspecified; Translations: [Diarrhea]46-99-9436Bhrhwbcf Other gastrointestinal disorders (20 sources)Abdominal mass; Translations: [Intra-abdominal and pelvic swelling, mass and lump, unspecified site]Onset: 340923-07-6324IopfvzvjOhcop gastrointestinal disorders (17 sources)Burning sensation; Translations: [Other specified symptoms and signs involving the digestive systemand abdomen]68-54-9917RuxmcvkiZxfvv gastrointestinal disorders (20 sources)Abdominal bloating; Translations: [Abdominal distension (gaseous)] Onset: 830217-96-8673YqqcxiapVsabq gastrointestinal disorders (20 sources)Constipation; Translations: [Constipation, unspecified]Onset: 152044-40-9299HynvvsevBewjl infections; including parasitic (1 source)Recurrent infectious disease; Translations: [Unspecified infectious disease]60-13-9861UletqjkeUyyng inflammatory condition of skin (20 sources)Discoid lupus erythematosus; 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]Onset: 429721-10-4532ZbslfreWdicr inflammatory condition of skin (4 sources)Discoid lupus erythematosus; Translations: [DISCOID LUPUS ERYTHEMATOSUS]Onset: 27-28-7927MfbjdjgWauly inflammatory condition of skin (20 sources)Lupus erythematosus; 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] Onset: 057204-73-1411TmfscjzTguqd inflammatory condition of skin (2 sources)Lupus erythematosus tumidus; 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]03-84-2103BwrcxabZxkuj inflammatory condition of skin (2 sources)Seborrheic dermatitis; Translations: [Other seborrheic dermatitis] 80-39-3714LnhsbrknFafts injuries and conditions due to external causes (1 source)Delayed healing of wound; Translations: [Other injury of unspecified body region, subsequent encounter]EpisodicOther liver diseases (20 sources)Steatosis of liver; Translations: [Fatty (change of) liver, not elsewhere classified]Onset: 375766-05-4716LzwwiuwQzpiy lower respiratory disease (2 sources)Snoring; Translations: [Snoring]EpisodicOther nervous system disorders (20 sources)Chronic pain syndrome; Translations: [Chronic pain syndrome]Onset: 117560-69-5160DcrswvkBbxof nervous system disorders (20 sources)Chronic pain; Translations: [Other chronic pain]51-26-5164Nhxrazx Other nervous system disorders (20 sources)Disorder of autonomic nervous system; Translations: [Disorder of the autonomic nervous system, unspecified]Onset: 115341-06-4524RluhoziCoeas nervous system disorders (13 sources)Other chronic pain; Translations: [Other chronic pain]Onset: 377026-75-3251XcjljpcSeeom nervous system disorders (1 source)Numbness; Translations: [Anesthesia of skin]24-00-9574SxoqvxzpJyytm nervous system disorders (4 sources)Cold extremity; Translations: [Unspecified disturbances of skin sensation]81-37-6802PiihhrhlWpcav non-traumatic joint disorders (1 source)Hypermobility syndrome; Translations: [Other specific joint derangements of unspecified joint, not elsewhere classified]78-82-4427Rcvxjql Other non-traumatic joint disorders (1 source)Other specific joint derangements of unspecified joint, not elsewhere classified; 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]Onset: 09-19-2024 ChronicOther nutritional; endocrine; and metabolic disorders (20 sources)Obesity; Translations: [Obesity, unspecified]Onset: 09-07-2022 21-87-7016ZjgkbzmMvrkh nutritional; endocrine; and metabolic disorders (20 sources)Body mass index 40+ - severely obese; Translations: [Morbid (severe) obesity due to excess calories]Onset: 82-63-9092IcpcgsbYsnmz nutritional; endocrine; and metabolic disorders (20 sources)Insulin resistance; Translations: [Insulin resistance, unspecified] Onset: 554461-43-6553PzduhirLubmp nutritional; endocrine; and metabolic disorders (2 sources)Morbid obesity; Translations: [Morbid (severe) obesity due to excess calories]30-65-1690FtpcfbaSroaq nutritional; endocrine; and metabolic disorders (2 sources)Morbid (severe) obesity due to excess calories; Translations: [Morbid (severe) obesity due to excess calories (Multi)]Onset: 71-71-8007LatcjqzTgflg nutritional; endocrine; and metabolic disorders (1 source)Childhood obesity; Translations: [Obesity, unspecified]03-14-2025 ChronicOther skin disorders (5 sources)Hidradenitis suppurativa; Translations: [Hidradenitis suppurativa] 49-22-0677UzqjxesfMmnlr skin disorders (4 sources)Acne vulgaris; Translations: [Acne vulgaris]42-87-2373KjfbkbcwXsrpm upper respiratory disease (20 sources)Chronic pharyngolaryngitis; Translations: [Chronic laryngitis]Onset: 913237-82-6001AcsiuwvQsxsqxe cyst (1 source)Unspecified ovarian cyst, left side; Translations: [UNSPECIFIED OVARIAN CYST LEFT SIDE]Onset: 60-12-7241IhyeaovuCvokjoymkg and visceral atherosclerosis (2 sources)Peripheral vascular disease; Translations: [Peripheral vascular disease, unspecified]60-45-2449RikfoywIuxnyxgl codes; unclassified (20 sources)Obstructive sleep apnea syndrome; Translations: [Obstructive sleep apnea (adult) (pediatric)]Onset: 61-53-1983GekwkftUdryyyva codes; unclassified (3 sources)Obstructive sleep apnea (adult) (pediatric); Translations: [Obstructive sleep apnea (adult) (pediatric)]Onset: 01-57-8035LfyjgeaGualbmsg codes; unclassified (1 source)Sleep apnea; Translations: [Sleep apnea, unspecified]Onset: 05-20-2022 27-75-9312YpfnkdvEjdsdbfh codes; unclassified (1 source)Family history of hereditary disease; Translations: [Family history of other specified conditions]EpisodicResidual codes; unclassified (1 source)Family history of malignant neoplasm of breast; Translations: [FAMILY HX MALIG NEOPLASM OF BREAST]Onset: 37-54-8028BuvuajzvUrgswzon codes; unclassified (1 source)Family history of malignant neoplasm of digestive organs; Translations: [FAM HX MALIG NEOPLASM DIGESTIV ORGN]Onset: 32-24-2477Puylutbu Residual codes; unclassified (1 source)Bilateral lower limb edema; Translations: [Localized edema]07-13-2023 EpisodicResidual codes; unclassified (1 source)Finding of mouth region; Translations: [Unspecified symptoms and signs involving general sensationsand perceptions]23-48-3418RomtxxybRhatzwhu codes; unclassified (1 source)FH: Cardiovascular disease; Translations: [Family history of ischemic heart disease and other diseases of the circulatory system]31-75-7168Bgrkxsam Residual codes; unclassified (2 sources)Family history of cancer; Translations: [Family history of malignant neoplasm, unspecified]50-93-3231OvzwiczrHjesufcx codes; unclassified (1 source)FH: Respiratory disease; Translations: [Family history of other diseases of the respiratory system]45-58-2498LgvroyyxJcaokgkp codes; unclassified (1 source)FH: Aortic aneurysm; Translations: [Family history of ischemic heart disease and other diseases of the circulatory system]56-51-7924NeyynorsDjysvbxz codes; unclassified (2 sources)Pain; Translations: [Pain, unspecified]46-75-5226LmbatremPvrpeebu codes; unclassified (1 source)Tobacco ukup54-69-7457UscptwgtRyaguczoic arthritis and related disease (4 sources)Rheumatoid arthritis; Translations: [Rheumatoid arthritis, unspecified]Onset: 367434-18-6439XykhzykOowf and subcutaneous tissue infections (20 sources)Pilonidal cyst; Translations: [Pilonidal cyst without abscess]Onset: 919170-91-6847XaxoiedgZeeawggjloz; intervertebral disc disorders; other back problems (20 sources)Bilateral inflammation of sacroiliac joint; Translations: [Sacroiliitis, not elsewhere classified]Onset: 035426-29-7208Vmxzvfz Substance-related disorders (20 sources)Tobacco user; Translations: [Nicotine dependence, unspecified, uncomplicated]Onset: 472585-62-8100FrdenxyGusgdtkw lupus erythematosus and connective tissue disorders (20 sources)Systemic lupus erythematosus; Translations: [Other organ or system involvement in systemic lupus erythematosus]Onset: 89-15-0784PupdsbrHwkdjwy disorders (20 sources)Thyroid nodule; Translations: [Nontoxic single thyroid nodule]Onset: 716257-93-2605IhzjiiwWrlaevhxnjgh (1 source)Supraventricular tachycardia, unspecified (CMS-HCC); Translations: [Supraventricular tachycardia, unspecified (CMS-HCC)]Onset: 07-13-2023 Unclassified (8 sources)Call Dr. Donaldson office to schedule a follow up appointment if you do not already have one scheduled Past or Other Problems Problem ClassificationProblemDateDocumented DateEpisodic/ChronicCardiac dysrhythmias (20 sources)Tachycardia, unspecified; Translations: [Tachycardia]Onset: 10-15-2021 Resolved: 95-71-7519JsajpxpcPjzu; stupor; and brain damage (20 sources)Daytime somnolence; Translations: [Somnolence]Onset: 05-20-2022 EpisodicConditions associated with dizziness or vertigo (20 sources)Dizziness; Translations: [Dizziness and giddiness]Onset: 06-01-2023 93-12-2731FozbolbwInkdhnolbl and other anemia (20 sources)Megaloblastic anemia due to vitamin B>12< deficiency; Translations: [Other megaloblastic anemias, not elsewhere classified]Onset: 03-04-2022 71-40-2724BeuohbpmHtjliolsqd and other anemia (1 source)Anemia, unspecified; Translations: [ANEMIA UNSPECIFIED]Onset: 95-96-4023AqzxrtiyQinqovjomc and other anemia (20 sources)Anemia; Translations: [Anemia, unspecified]Onset: 03-11-2022 38-48-5212EagstnnrVydqbnwyfw and other anemia (20 sources)Iron deficiency anemia; Translations: [Other iron deficiency anemias]Onset: 802836-42-1427QtjkhjmeNmqqjsspug and other anemia (1 source)Other megaloblastic anemias, not elsewhere classified; Translations: [Megaloblastic anemia due to vitamin B12 deficiency]Onset: 28-39-6128Hrjdvxsn Deficiency and other anemia (1 source)Other iron deficiency anemias; Translations: [Other iron deficiency anemia]Onset: 44-12-5114IeoqdqunIxbtsrjd mellitus without complication (20 sources)Increased glucose level; Translations: [Other abnormal glucose] Onset: 57-31-4176QkdxcvlaAucbnijh of mouth; excluding dental (20 sources)Oral lesion; Translations: [Unspecified lesions of oral mucosa] Onset: 617156-91-8459EgsyaizjS Codes: Fall (1 source)Fall on same level from slipping, tripping and stumbling without subsequent striking against object, initial encounter; Translations: [FALL SAME LVL SLIP NO STRK OBJ INIT]Onset: 17-86-4008FwidwbblHiyrsgwk; including migraine (20 sources)Headache; Translations: [Nonintractable episodic headache]Onset: 323157-45-2845UzbzakaeJgnkjgeycy infection (20 sources)Clostridium difficile diarrhea; Translations: [Enterocolitis due to Clostridium difficile, not specified as recurrent]Onset: EpisodicJoint disorders and dislocations; trauma-related (1 source)Unspecified subluxation of right patella, initial encounter; Translations: [UNS SUBLUXATION RT PATELLA INITIAL]Onset: 00-67-1587Dqxizlpd Lymphadenitis (20 sources)Lymphadenopathy; Translations: [Enlarged lymph nodes, unspecified] Onset: 155916-16-3197JjpqjinjKaeukxl and fatigue (4 sources)Malaise and fatigue; Translations: [Other malaise]Onset: 11-29-2024 10-78-5328XchdvwlwCgqxtcyrmcz deficiencies (20 sources)Cobalamin deficiency; Translations: [Deficiency of other specified B group vitamins]Onset: 70-05-9973JmzrrfhiJvqgu aftercare (20 sources)Drug therapy finding; Translations: [Other predatory animal exterminator (current) drug therapy]Onset: 16-58-4764ElaphehpQzmtz aftercare (20 sources)H/O: high risk medication; Translations: [Other predatory animal exterminator (current) drug therapy]Onset: 525248-68-5809TfqxlzrhYqexw aftercare (1 source)Other mcc (current) drug therapy; Translations: [OTH PARCEL POST DELIVERY 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 THERAPY]Onset: 84-18-4873JsvatrzvVlapr aftercare (20 sources)Long-term current use of systemic steroid; Translations: [skilled nursing (current) use of systemic steroids]Onset: 341922-59-2303ZolpemdaXzugo connective tissue disease (20 sources)Pain in toe; Translations: [Pain in right toe(s)]Onset: 03-05-2021 EpisodicOther connective tissue disease (20 sources)Fibromyalgia; Translations: [Fibromyalgia]Onset: 24-86-5170Ilovnzkt Other connective tissue disease (20 sources)Other symptoms and signs involving the musculoskeletal system; Translations: [Other musculoskeletalsymptoms referable to limbs]Onset: 067635-55-4252AqiyieppHacri connective tissue disease (20 sources)Enthesopathy of hip region; Translations: [Other specified enthesopathies of unspecified lower limb, excluding foot]Onset: 07-06-2023 72-90-8973TrpkxfzcNixjw connective tissue disease (20 sources)Muscle pain; Translations: [Myalgia, unspecified site]Onset: 739762-76-3522ZsauxhumKiggy connective tissue disease (2 sources)Pain in lower limb; Translations: [Pain in leg, unspecified] 71-60-0705GtamkjlmUmkld gastrointestinal disorders (20 sources)Diarrhea; Translations: [Diarrhea, unspecified]Onset: 03-07-2024 82-87-4468IiqiezmuDprwb hematologic conditions (20 sources)ESR raised; Translations: [Elevated erythrocyte sedimentation rate] Onset: 29-03-3815JihqybvmDxxig hematologic conditions (9 sources)Elevated erythrocyte sedimentation rate; Translations: [ELEVATED ERYTHROCYTE SED RATE]Onset: 03-05-2021 Resolved: 75-59-6360KaxbguvyDdpiy infections; including parasitic (20 sources)Disorder due to infection; Translations: [Personal history of other infectious and parasitic diseases]Onset: 910002-40-0224ScvzwudpPcvby infections; including parasitic (1 source)Personal history of other infectious and parasitic diseases; Translations: [Frequent infections]Onset: 65-85-7079CnfrlvcwUownc injuries and conditions due to external causes (3 sources)Unspecified injury of right lower leg, initial encounter; Translations: [UNS INJURY RT LOWER LEG INITIAL ENC]Onset: 67-37-9156Itydkriu Other lower respiratory disease (20 sources)Dyspnea; Translations: [Shortness of breath]Onset: 07-13-2023 30-74-2594JruvpkdwGsnjh lower respiratory disease (2 sources)Shortness of breath; Translations: [Shortness of breath]Onset: 15-90-4778VruxmirqXvuum nervous system disorders (20 sources)Ataxia; Translations: [Ataxia, unspecified]Onset: 05-31-2014 70-30-8058AjskjodzQrkha nervous system disorders (20 sources)Skin sensation disturbance; Translations: [Unspecified disturbances of skin sensation]Onset: 523086-20-5774PqdswwbgZrtcq nervous system disorders (20 sources)Paresthesia; Translations: [Paresthesia of skin]Onset: 11-08-2023 58-73-6535ZcmndjydYlane non-traumatic joint disorders (20 sources)Hip pain; Translations: [Pain in unspecified hip]Onset: 07-06-2023 83-25-8591GvwuhsubUfvif non-traumatic joint disorders (5 sources)Pain in right knee; Translations: [PAIN IN RIGHT KNEE]Onset: 28-91-3636UzpvpsmwYjcic non-traumatic joint disorders (1 source)Effusion, right knee; Translations: [EFFUSION RIGHT KNEE]Onset: 55-18-9268UytzfgchZqodz non-traumatic joint disorders (20 sources)Bilateral wrist pain; Translations: [Pain in right wrist]Onset: 424090-42-8834JflcjaqlGrpbh nutritional; endocrine; and metabolic disorders (20 sources)Obese class II; Translations: [Obesity, unspecified]Onset: 03-09-2022 Resolved: 459539-43-6060CdrlaejGnbrb nutritional; endocrine; and metabolic disorders (20 sources)Body mass index 30+ - obesity; Translations: [Obesity, unspecified] Onset: 05-31-2014 Resolved: 701444-00-4806FudycsgOhyeg nutritional; endocrine; and metabolic disorders (20 sources)History of nutritional deficiency; Translations: [Personal history of other endocrine, nutritional and metabolic disease]Onset: 10-05-2023 85-81-5160FcvfdqvoEdrva screening for suspected conditions (not mental disorders or infectious disease) (20 sources)Elevated C-reactive protein; Translations: [Elevated C-reactive protein (CRP)]Onset: 45-87-3308UrdrlbqpJesbj skin disorders (20 sources)Eruption; Translations: [Rash and other nonspecific skin eruption] Onset: 41-59-8955IrfllmbgFmxfb skin disorders (20 sources)Loss of hair; Translations: [Nonscarring hair loss, unspecified] Onset: 65-47-1517MjpaezfyPxiiq upper respiratory disease (20 sources)Hoarse; Translations: [Dysphonia]Onset: 039166-10-8774Pwlhnqoc Residual codes; unclassified (20 sources)FH: Crohn's disease; Translations: [Family history of other diseases of the digestive system]Onset: 74-74-1125PztoejmtMsnzjfgd codes; unclassified (3 sources)Flushing; Translations: [FLUSHING]Onset: 10-15-2021 Resolved: 48-97-0120GyxacfofKsimjtxh codes; unclassified (1 source)Family history of ischemic heart disease and other diseases of the circulatory system; Translations: [Family history of aortic aneurysm]Onset: 11-73-7244BvhbeftpCngvueafxhc; intervertebral disc disorders; other back problems (20 sources)Chronic low back pain; Translations: [Lumbago with sciatica, left side]Onset: 90-37-6468VazwkkmhEkymltrvpqhb (2 sources)Onset: 07-13-2023 Resolved: 171019-24-1171Bbynmqtldwcj (1 source)Supraventricular tachycardia, unspecified (CMS-HCC); Translations: [Supraventricular tachycardia, unspecified (CMS-HCC)]Onset: 09-11-4120Zvegk infection (20 sources)Cytomegaloviral disease, unspecified; 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 Ordering Physician: Gordo Barfield M.D. Date of Service: 03/22/25 Procedure(s): US thyroid Accession Number(s): [id number] cc: GAY DE LA TORRE ; Gordo Barfield M.D. [address] [id number] Patient Name: ARIADNA HALEY MRN: [id number] date: 1980 Sex: F Assigned Patient Location: US Current Patient Location: [facility] Accession/Order Number: [id number] Exam Date: 03/22/2025 09:30 Report Date: 03/22/2025 11:38 At the request of: GORDO BARFIELD MD [...] Nelson M.D. 03/22/2025 11:38 AM Dictation Location: [place] [address] Electronically authenticated by: [id number] Y Date: 03/22/2025 11:38 Dictated By: Simin Nelson M.D. Signed By: 03/22/25 1141 DD/ 1138 TD/TT: Admin Assistant:DARLENEHRadiology, Radiologist, - 03/22/[address] [address] Ultrasound Report Signed Patient: ARIADNA HALEY MR#: [id number] : 1980 Acct:[id number] Age/Sex: 44 / F ADM Date: 03/22/25 Loc: US Attending Dr: Gordo Barfield M.D. Ordering Physician: Gordo Barfield M.D. Date of Service: 03/22/25 Procedure(s): US thyroid Accession Number(s): [id number] cc: GAY DE LA TORRE ; Gordo Barfield M.D. The [place] [id number] Patient Name: ARIADNA HALEY MRN: [id number] date: 1980 Sex: F Assigned Patient Location: US Current Patient Location: RAD Accession/Order Number: [id number] Exam Date: 03/22/2025 09:30 Report Date: 03/22/2025 11:38 At the request of: GORDO BARFIELD MD [...] Nelson M.D. 03/22/2025 11:38 AM Dictation Location: [place] [address] Electronically authenticated by: [id number] Y Date: 03/22/2025 11:38 Dictated By: Simin Nelson M.D. Signed By: 03/22/25 1141 DD/ 1138 TD/TT: Admin Assistant: MABLE HealthcareRadiology Study observation (narrative)MABLE HealthcareUS Thyroid glandOrdered By: Radiologist Radiology on 78-68-9953[facility] Work Phone: cbc W Auto Differential panel (Bld)on 03-21-2025 Basophils (Bld) [#/Vol]0.10 10*3/uLNormal<0.11CSycamore Medical CenterComformerly [facility] on above:Order Comment: Specimen Type: BLOOD SPECIMENOrdering Facility: [facility] Address:[address] [place] [address] Performed By: #### 39910-7 ####[facility] LABCLIA [id number] [place], [place] [address]Sdmggswuc/100 WBC (Bld)0.8 % NormalOhio State Health System on above:Order Comment: Specimen Type: BLOOD SPECIMENOrdering Facility: [facility] Address:[address] [place], [place] [address]Performed By: #### 26245-9 ####[facility] LABCLIA [id number] [place] [address] Differential cell count method Nom (Bld)AutoNormalClevelFormerly [facility] Comment on above:Order Comment: Specimen Type: BLOOD SPECIMENOrdering Facility: [facility] Address:[address] [place] [address] Performed By: #### 50014-8 ####[facility] LABCLIA [id number] [place], [place] [address]Oagvqzfdxfl (Bld) [#/Vol]0.14 10*3/uLNormal<0.46[facility] on above:Order Comment: Specimen Type: BLOOD SPECIMENOrdering Facility: [facility] Address:[address] [place], [place] [address]Performed By: #### 47346-1 ####[facility] LABCLIA [id number] [place], [place] [address]Kestqrafjxi/100 WBC (Bld)1.1 %NormalOhio State Health System on above:Order Comment: Specimen Type: BLOOD SPECIMENOrdering Facility: [facility] Address:[address] [place], [place] [address]Performed By: #### 83881-7 ####[facility] LABIA [id number] [place], [place] [address]Ostjchrmmro distribution width (RBC) [Ratio]14.1 %Eprypl16.5-15.0[facility] on above: Order Comment: Specimen Type: BLOOD SPECIMENOrdering Facility: [facility] Address:[address] [place], [place] [address]Performed By: #### 64141- 8 ####[facility] LABCLIA [id number] [place], [place] [address]Yjcqvqaulq (Bld) [Volume fraction]44.4 %Josqlr98.0-46.0 [facility] on above:Order Comment: Specimen Type: BLOOD SPECIMENOrdering Facility: [facility] Address:[address] [place], [place] [address]Performed By: #### 43144-3 ####[facility] LABIA [id number] [place], [place] [address]Fjlooctvbg (Bld) [Mass/Vol]14.9 g/yQLenafb20.5-15.5CTrinity Health System [facility] Campus on above: Order Comment: Specimen Type: BLOOD SPECIMENOrdering Facility: [facility] Address:[address] [place], [place] [address]Performed By: #### 65904- 8 ####[facility] LABIA [id number] [place], [place] [address]Gzgcwqug granulocytes (Bld) [#/Vol]0.16 10*3/uLHigh<0.10 [facility] on above:Order Comment: Specimen Type: BLOOD SPECIMENOrdering Facility: [facility] Address:[address] [place], [place] [address]Performed By: #### 91711-7 ####[facility] LABCLIA [id number] [place], [place] [address]Kpnulzri granulocytes/100 WBC (Bld)1.2 %NormalOhio State Health System on above: Order Comment: Specimen Type: BLOOD SPECIMENOrdering Facility: [facility] Address:[address] [place], [place] [address]Performed By: #### 60044- 8 ####[facility] LABCLIA [id number] [place], [place] [address]Mmngudtlwhu (Bld) [#/Vol]1.94 10*3/uLNormal1.00-4.00 [facility] on above:Order Comment: Specimen Type: BLOOD SPECIMENOrdering Facility: [facility] Address:[address] [place], [place] [address]Performed By: #### 13610-0 ####[facility] LABIA [id number] [place], [place] [address]Ekgqntnidmy/100 WBC (Bld)14.9 %NormalOhio State Health System on above:Order Comment: Specimen Type: BLOOD SPECIMENOrdering Facility: [facility] Address:[address] [place], [place] [address]Performed By: #### 73361-1 ####[facility] LABIA [id number] [place], [place] [address]XLY (RBC) [Entitic mass]31.8 sdXdxmex95.0-34.0[facility] on above:Order Comment: Specimen Type: BLOOD SPECIMENOrdering Facility: [facility] Address:[address] [place], [place] [address]Performed By: #### 65521-3 ####[facility] LABCLIA [id number] [place], [place] [address]ORNL (RBC) [Mass/Vol]33.6 g/dRMyzfja13.5-36.0[facility] on above: Order Comment: Specimen Type: BLOOD SPECIMENOrdering Facility: [facility] Address:[address] [place], [place] [address]Performed By: #### 94532- 8 ####[facility] LABCLIA [id number] [place], [place] [address]HPH (RBC) [Entitic vol]94.9 kETwqpzq76.0-100.0[facility] on above:Order Comment: Specimen Type: BLOOD SPECIMENOrdering Facility: [facility] Address:[address] [place], [place] [address]Performed By: #### 04764-5 ####[facility] LABCLIA [id number] [place], [place] [address]Ikyfjaslr (Bld) [#/Vol]0.94 10*3/uLHigh<0.87[facility] on above:Order Comment: Specimen Type: BLOOD SPECIMENOrdering Facility: [facility] Address:[address] [place], [place] [address]Performed By: #### 10373- 8 ####[facility] LABCLIA [id number] [place], [place] [address]Vnttntfzc/100 WBC (Bld)7.2 %NormalOhio State Health System on above:Order Comment: Specimen Type: BLOOD SPECIMENOrdering Facility: [facility] Address:[address] [place], [place] [address]Performed By: #### 33406-5 ####[facility] LABCLIA [id number] [place], [place] [address]Walbgutzqdv (Bld) [#/Vol]9.74 10*3/uLHigh1.45-7.50[facility] on above:Order Comment: Specimen Type: BLOOD SPECIMENOrdering Facility: [facility] Address:[address] [place], [place] [address]Performed By: #### 16910-2 ####[facility] LABCLIA [id number] [place], [place] [address]Qcssnopajce/100 WBC (Bld)74.8 %NormalOhio State Health System on above:Order Comment: Specimen Type: BLOOD SPECIMENOrdering Facility: [facility] Address:[address] [place], [place] [address]Performed By: #### 92586-2 ####[facility] LABCLIA [id number] [place], [place] [address]Bmqxqfepm RBC (Bld) [#/Vol] 10*3/uLNormal<0.01[facility] on above:Order Comment: Specimen Type: BLOOD SPECIMENOrdering Facility: [facility] Address:[address] [place], [place] [address]Performed By: #### 27397-0 ####[facility] LABCLIA [id number] [place], [place] [address]Gandprpdb RBC/100 WBC (Bld) [Ratio]0.0 /100 WBCNormal [facility] on above:Order Comment: Specimen Type: BLOOD SPECIMENOrdering Facility: [facility] Address:[address] [place], [place] [address]Performed By: #### 59224-2 ####[facility] LABCLIA [id number] [place], [place] [address]Wmjojfdz mean volume (Bld) [Entitic vol]10.3 fLNormal9.0-12.7CTrinity Health System East Campus on above:Order Comment: Specimen Type: BLOOD SPECIMENOrdering Facility: [facility] Address:[address] [place] [address] Performed By: #### 79746-1 ####[facility] LABCLIA [id number] [place], [place] [address]Ckdzlraon (Bld) [#/Vol]319 10*3/mCDefayx854-122CvdsvmlvgOhio State Health System on above:Order Comment: Specimen Type: BLOOD SPECIMENOrdering Facility: [facility] Address:[address] [place], [place] [address]Performed By: #### 89803-0 ####[facility] LABCLIA [id number] [place], [place] [address]NYO (Bld) [#/Vol]4.68 10*6/uLNormal3.90-5.20[facility] on above:Order Comment: Specimen Type: BLOOD SPECIMENOrdering Facility: [facility] Address:[address] [place], [place] [address]Performed By: #### 21233-8 ####[facility] LABCLIA [id number] [facility] [place]ENTERMAGGY[place], [place] [address]EVS (Bld) [#/Vol]13.02 10*3/uLHigh3.70-11.00[facility] on above: Order Comment: Specimen Type: BLOOD SPECIMENOrdering Facility: [facility] Address:[address] [place], [place] [address]Performed By: #### 44135- 8 ####[facility] LABCLIA [id number] [facility] NEISHASELECT SPECIALTY HOSPITALGalRUBICON, [place] [address]QMOCSIwq 31-39-4361RGRDQSTplhxiKuakueiphSalem City Hospital metabolic 2000 panelon 11-31-7174Dcqgamm [Mass/Vol]4.3 g/dLNormal 3.9-4.9CTrinity Health System East Campus on above:Order Comment: Specimen Type: BLOOD SPECIMENOrdering Facility: [facility] Address:[address] [place], [place] [address]Performed By: #### 41578-2 ####[facility] LABCLIA [id number] [facility] MED[facility] CENTERMAGGYFO[place], [place] [address]IAT [Catalytic activity/Vol]80 U/UBoprqo44-757MvougluaxOhio State Health System on above:Order Comment: Specimen Type: BLOOD SPECIMENOrdering Facility: [facility] Address:[address] [place], [place] [address]Performed By: #### 41472-2 ####[facility] LABCLIA [id number] [facility] NEISHAPHOENIX INDIAN MEDICAL CENTERAMAYARUBICON, [place] [address]XMS [Catalytic activity/Vol]37 U/LNormal7-38[facility] on above:Order Comment: Specimen Type: BLOOD SPECIMENOrdering Facility: [facility] Address:[address] [place], [place] [address]Performed By: #### 26404-8 ####[facility] LABCLIA [id number] [facility] BARNESPHOENIX INDI[facility] [place] [address]Nihii gap [Moles/Vol]15 mmol/LNormal8-15[facility] on above:Order Comment: Specimen Type: BLOOD SPECIMENOrdering Facility: [facility] Address:[address] [place], [place] [address]Performed By: #### 91981- 8 ####[facility] LABCLIA [id number] OSORIO DRIVERSELECT SPECIALTY HOSPITALGalRUBICON, [place] [address]HPG [Catalytic activity/Vol]18 U/NGkcyuo25-09UqvyqwgqmOhio State Health System on above:Order Comment: Specimen Type: BLOOD SPECIMENOrdering Facility: [facility] Address:[address] [place], [place] [address]Performed By: #### 57851-6 ####[facility] LABCLIA [id number] OSORIO PERESMAGGYPHOENIX INDIAN MEDICAL CENTERAMAYARUBICON, [place] [address]Hevhpfcrv [Mass/Vol]0.2 mg/dLNormal0.2-1.3CTrinity Health System [facility] Campus on above:Order Comment: Specimen Type: BLOOD SPECIMENOrdering Facility: [facility] Address:[address] [place], [place] [address]Performed By: #### 81476- 8 ####[facility] LABCLIA [id number] [facility] DRIVERPHOENIX INDIAN [place] [address]Ohdssaq [Mass/Vol]10.0 mg/dLNormal8.5-10.2CTrinity Health System [facility] on above:Order Comment: Specimen Type: BLOOD SPECIMENOrdering Facility: [facility] Address:[address] [place], [place] [address]Performed By: #### 17866-3 ####[facility] LABCLIA [id number] [facility] BARNESPHOENIX INDIAN [place]ENTERAMAY[place] [address]Ulvbldpo [Moles/Vol]104 mmol/BXclnwk44-122AanpgbbszOhio State Health System on above: Order Comment: Specimen Type: BLOOD SPECIMENOrdering Facility: [facility] Address:[address] [place] [address]Oxqqoycvt By: #### 66457- 8 ####[facility] LABCLIA [id number] [place], [place] [address]IW1 [Moles/Vol]22 mmol/QZqggrm46-19VfgoqybxoOhio State Health System on above:Order Comment: Specimen Type: BLOOD SPECIMENOrdering Facility: [facility] Address:[address] [place], [place] [address]Performed By: #### 84231-6 ####[facility] LABCLIA [id number] [place], [place] [address]Linrrynvjd [Mass/Vol]0.51 mg/dL Low0.58-0.96[facility] on above:Order Comment: Specimen Type: BLOOD SPECIMENOrdering Facility: [facility] Address:[address] [place], [place] [address]Performed By: #### 21071-2 ####[facility] LABCLIA [id number] [place] [address] eGFRcr SerPlBld CKD-EPI 5261277 mL/min/1.73m???Normal>=60[facility] on above:Order Comment: Specimen Type: BLOOD SPECIMENOrdering Facility: [facility] Address:[address] [place], [place] [address]Result Comment: Estimated Glomerular Filtration Rate (eGFR) is [...] accurately reflect actual GFR. Performed By: #### 01448-6 ####[facility] LABCLIA [id number] [place], [place] [address]Rkxpzsz [Mass/Vol]193 mg/dLHigh 74-99[facility] on above:Order Comment: Specimen Type: BLOOD SPECIMENOrdering Facility: [facility] Address:[address] [place], [place] [address]Result Comment: The [place] [employer] (ADA) provides guidance for [...] Standards of Medical Care in Diabetes 2016, [place] [employer]. Diabetes Care. 2016.39(Suppl 1).Performed By: #### 13266-2 ####[facility] LABCLIA [id number] [place], [place] [address]Xndapermw [Moles/Vol]4.0 mmol/LNormal3.7-5.1CTrinity Health System [facility] on above:Order Comment: Specimen Type: BLOOD SPECIMENOrdering Facility: [facility] Address:[address] [place], [place] [address]Performed By: #### 72312-5 ####[facility] LABCLIA [id number] [place], [place] [address]Kqqvdfg [Mass/Vol]7.4 g/dLNormal6.3-8.0[facility] on above:Order Comment: Specimen Type: BLOOD SPECIMENOrdering Facility: [facility] Address:[address] [place], [place] [address]Performed By: #### 66972- 8 ####[facility] LABCLIA [id number] [place], [place] [address]Drqibn [Moles/Vol]141 mmol/NWltfav855-253IolapyuwaOhio State Health System on above:Order Comment: Specimen Type: BLOOD SPECIMENOrdering Facility: [facility] Address:[address] [place], [place] [address]Performed By: #### 17832-3 ####[facility] LABCLIA [id number] [place], [place] [address]Rzmi nitrogen [Mass/Vol]16 mg/dLNormal7-21[facility] on above:Order Comment: Specimen Type: BLOOD SPECIMENOrdering Facility: [facility] Address:[address] [place], [place] [address]Performed By: #### 73873-9 ####[facility] LABCLIA [id number] [place], [place] [address]MJQDKZPCKDVCHYJ,IGG,IGA,IGMon 36-78-1231NbA [Mass/Vol]167 mg/dCWklqdi58-893IggogmywgOhio State Health System on above:Order Comment: Specimen Type: BLOOD SPECIMENOrdering Facility: [facility] Address:[address] [place], [place] [address]Performed By: #### SERIMM ####[facility] LABCLIA [id number] [place] [address] [place] AMERICAIgG [Mass/Vol]579 mg/qOCyl698-2066VukqzxpahOhio State Health System on above:Order Comment: Specimen Type: BLOOD SPECIMENOrdering Facility: [facility] Address:[address] [place], [place] [address]Performed By: #### SERIMM ####[facility] LABCLIA [id number] [place] [address] [place] OF AMERICAIgM [Mass/Vol]391 mg/dL Frko47-460LriglckmiOhio State Health System on above:Order Comment: Specimen Type: BLOOD SPECIMENOrdering Facility: [facility] Address:[address] [place], [place] [address]Performed By: #### SERIMM ####[facility] LABCLIA [id number] [place] [address] [place] OF AMERICACNPNon 42-05-5570PNIBSphzbwIdyfnfxbt Clinic ClevelandWOUND CULTUREon 30-32-7554QDRXA CULTURESPECIMEN DESCRIPTION WOUND SPECIAL REQUESTS RIGHT NIPPLE DISCHARGE GRAM SMEAR NO * Result Note: WBC'S SEEN * * Result Note: NO ORGANISMS SEEN * COLONY COUNT LIGHT GROWTH CULTURE STAPHYLOCOCCUS EPIDERMIDIS * Result Note: Testing performed at [place] [address] * REPORT STATUS 03/18/2025 * Result Note: FINAL * ORGANISM STAPHYLOCOCCUS EPIDERMIDIS * Result Note: STAPHYLOCOCCUS EPIDERMIDIS * METHOD ELPIDIO CLINDAMYCIN >=8 RESISTANT ERYTHROMYCIN >=8 RESISTANT GENTAMICIN <=0.5 SUSCEPTIBLE PENICILLIN G >=0.5 RESISTANT RIFAMPIN <=0.5 SUSCEPTIBLE TETRACYCLINE 2 SUSCEPTIBLE TRIMETH-SULFA 80 RESISTANT VANCOMYCIN 1 SUSCEPTIBLE LEVOFLOXACIN >=8 RESISTANT OXACILLIN >=4 RESISTANT LINEZOLID 2 SUSCEPTIBLE INDUCIBLE CLINDAMYCIN RESISTANCE NEGATIVENoCrystal Clinic Orthopedic CenterComment on above:Performed By: #### WDC #### [place] [address] Testing performed at [place] [id number] CULTUREon 45-88-7609LBHQL CULTURESPECIMEN DESCRIPTION WOUND SPECIAL REQUESTS LEFT NIPPLE DISCHARGE GRAM SMEAR NO * Result Note: WBC'S SEEN * * Result Note: NO ORGANISMS SEEN * CULTURE NO GROWTH 2 DAYS * Result Note: Testing performed at [place] [address] * REPORT STATUS 03/16/2025 * Result Note: FINAL *[facility] Medical CenterComment on above:Performed By: #### WDC #### Testing performed at [place] [id number] Testing performed at [address] [address]Btgon Cultureon 30-75-7350Plgtboqn identified Cx Nom (U)<9,000 colonies/ml mixed bacterial skin contaminants 2 Days PERFORMED BY: [place] [address] PATHOLOGIST PARACHUTE CUSHION INSTALLER TIM FOOTE M.D.[facility] Physician GroupComment on above: Performed By: #### CUU #### [place] [address] USAUrine cultureOrdered By: Gay De La Torre on 03-09-2025 Bacteria identified Cx Nom (U)2 Trinity Health SystemUrine Cultureon 72-07-6029Nfhkqrkh identified Cx Nom (U)ORGANISM: Christine albicans (O:CANALB) [place] Count >100,000 PERFORMED BY: [place] [address] PATHOLOGIST PARACHUTE CUSHION INSTALLER TIM FOOTE M.D.[facility] Physician GroupComment on above: Performed By: #### CUU #### [place] [address] USAUrine cultureOrdered By: Jose Perez on 03-03-2025 Bacteria identified Cx Nom (U)Christine albicansAbnoCherrington HospitalAerobic Cultureon 07-55-8881Jygwhjn CultureComment pilonidal abscess culture ORGANISM: Serratia marcescens (O:SERMAR) Quantity of Growth Light Growth Comment pilonidal abscess culture ORGANISM: Prevotella species (O:PRESP) Comments . Quantity of Growth Light Growth Send Test to Ref. Lab Sent to [facility] for CHRISTIAN ID Identification performed at: [facility] [employer] [id number] Field Reimbursement Manager: Doyle Mendenhall PhD, Phone: [phone] Please contact Microbiology within 7 days if [...] RESISTANT TO ALL B-LACTAM DRUGS. PERFORMED BY: [facility] [address] [place] [address] PATHOLOGIST PARACHUTE CUSHION INSTALLER TIM FOOTE M.D.NormalKindred Hospital North Florida Physician GroupComment on above: Performed By: #### AERC #### [facility] [address] [place] [address] USAAerobic cultureOrdered By: Terence Blum on 03-02-2025 Bacteria identified Aer cx Nom (Unsp spec)Serratia marcescensAbnoCherrington HospitalGram stain microscopyOrdered By: Terence Blum on 24-66-6564Fpupegfbjxr observation Gram stain Nom (Unsp spec)[facility]vue HospitalLon 03-02-2025L Specimen: [id number] Received: 03/05/25 Status: BAIRON Garcia Num: [id number] Spec Type: Surgical Subm Dr: Terence Blum MD Tissues: A Pilonidal Cyst (PRODUCT OF DEBRIDEMENT) Procedures: HE/2, Gross/Micro L3 Age/ Patient Sex Location Account Attending Physician Ariadna Haley 44/F [place] [id number] Terence Blum MD SPEC NUM: [id number] RECD: 03/05/25 STATUS: BAIRON YON NUM: [id number] EDITA: 03/02/[address]: Terence Blum MD ENTERED: 03/05/25 [facility] DR: DANIELLA TYPE: Surgical DEPT: S ENTERED BY: [id number] RECV BY: [id number] ORDERED: HE/2, Gross/Micro L3 ORDERED: HE/2, Gross/Micro [...] each specimen submitted in A2. (2, ns, [id number] A) CPT Codes 69815 Specimen: [id number] Received: 03/05/25 Status: BAIRON Garcia Num: [id number] Spec Type: Surgical Subm Dr: Terence Blum MD Tissues: A Pilonidal Cyst (PRODUCT OF DEBRIDEMENT) Procedures: HE/Twan, Gross/Micro L3 Patient: Ariadna Haley [id number] (Continued) Signed (signature on file) Merry Grajeda MD 03/06/25 1111 [facility] Physician GroupUrine Cultureon 62-45-2794Budiolyq identified Cx Nom (U)20,000 colonies/ml mixed bacterial skin contaminants including mixed gram negative bacilli - 2 Days PERFORMED BY: [facility] [address] [facility] [place] [address] PATHOLOGIST PARACHUTE CUSHION INSTALLER TIM FOOTE M.D.[facility] Physician GroupComment on above: Performed By: #### CUU #### [facility] [address] [place] [address] USAUrine cultureOrdered By: Mathew Ji on 02-26-2025 Bacteria identified Cx Nom (U)bacilli - 2 DaysThe Bellevue Hospital CBC W Auto Differential panel (Bld)on 35-38-5559Dhrmlccxg (Bld) [#/Vol]0.09 10*3/uLNormal<0.11CTrinity Health [facility] on above:Order Comment: Specimen Type: BLOOD SPECIMENOrdering Facility: [facility] Address:[address] [place], [place] [address]Performed By: #### [id number] ####[facility] LABCLIA [id number] [place], [place] [address]Gyppbijnw/100 WBC (Bld)0.7 %NormalWhite HospitalComment on above:Order Comment: Specimen Type: BLOOD SPECIMENOrdering Facility: [facility] Address:[address] [place], [place] [address]Performed By: #### [id number] ####[facility] LABCLIA [id number] [place], [place] [address]Yahwcfvbbplo cell count method Nom (Bld)AutoNormalClevelFormerly Park Ridge HealthComment on above:Order Comment: Specimen Type: BLOOD SPECIMENOrdering Facility: [facility] Address:[address] [place], [place] [address]Performed By: #### 32460-4 ####[facility] LABCLIA [id number] [place], [place] [address]Ujeuwfzmsrf (Bld) [#/Vol]0.11 10*3/uLNormal<0.46[facility] on above:Order Comment: Specimen Type: BLOOD SPECIMENOrdering Facility: [facility] Address:[address] [place], [place] [address]Performed By: #### [id number] ####[facility] LABIA [id number] [place], [place] [address]Iwlsddmsoga/100 WBC (Bld)0.8 %NormalOhio State Health System on above:Order Comment: Specimen Type: BLOOD SPECIMENOrdering Facility: [facility] Address:[address] [place], [place] [address]Performed By: #### 58489-1 ####[facility] LABCLIA [id number] [place], [place] [address]Opknputobaq distribution width (RBC) [Ratio]14.3 %Normal 11.5-15.0[facility] on above:Order Comment: Specimen Type: BLOOD SPECIMENOrdering Facility: [facility] Address:[address] [place], [place] [address]Performed By: #### 04382-1 ####[facility] LABCLIA [id number] [place] [address] Hematocrit (Bld) [Volume fraction]46.0 %Mfsbnh35.0-46.0[facility] on above:Order Comment: Specimen Type: BLOOD SPECIMENOrdering Facility: [facility] Address:[address] [place], [place] [address]Performed By: #### 75825-1 ####[facility] LABCLIA [id number] [place], [place] [address]Zquexwlnfx (Bld) [Mass/Vol]15.1 g/bYHsmnvs52.5-15.5CTr[facility] on above:Order Comment: Specimen Type: BLOOD SPECIMENOrdering Facility: [facility] Address:[address] [place], [place] [address]Performed By: #### 81450-4 ####[facility] LABCLIA [id number] [place], [place] [address]Gcrqatcf granulocytes (Bld) [#/Vol]0.21 10*3/uLHigh<0.10 [facility] on above:Order Comment: Specimen Type: BLOOD SPECIMENOrdering Facility: [facility] Address:[address] [place], [place] [address]Performed By: #### 40268-2 ####[facility] LABCLIA [id number] [place], [place] [address]Kihvkill granulocytes/100 WBC (Bld)1.6 %[facility] on above: Order Comment: Specimen Type: BLOOD SPECIMENOrdering Facility: [facility] Address:[address] [place], [place] [address]Performed By: #### 01596- 8 ####[facility] LABCLIA [id number] [place], [place] [address]Tzwvyotwyst (Bld) [#/Vol]1.89 10*3/uLNormal1.00-4.00 [facility] on above:Order Comment: Specimen Type: BLOOD SPECIMENOrdering Facility: [facility] Address:[address] [place], [place] [address]Performed By: #### 85386-2 ####[facility] LABIA [id number] [place], [place] [address]Jkbhfhhvbwt/100 WBC (Bld)14.4 %[facility] on above:Order Comment: Specimen Type: BLOOD SPECIMENOrdering Facility: [facility] Address:[address] [place], [place] [address]Performed By: #### 32555-4 ####[facility] LABCLIA [id number] [place], [place] [address]WQD (RBC) [Entitic mass]31.7 ffQbfzma16.0-34.0[facility] on above:Order Comment: Specimen Type: BLOOD SPECIMENOrdering Facility: [facility] Address:[address] [place], [place] [address]Performed By: #### 41969-8 ####[facility] LABCLIA [id number] [place], [place] [address]OMXI (RBC) [Mass/Vol]32.8 g/mLPluvpt91.5-36.0[facility] on above: Order Comment: Specimen Type: BLOOD SPECIMENOrdering Facility: [facility] Address:[address] [place], [place] [address]Performed By: #### 90975- 8 ####[facility] LABCLIA [id number] [place], [place] [address]LWP (RBC) [Entitic vol]96.4 kRUbgazm40.0-100.0[facility] on above:Order Comment: Specimen Type: BLOOD SPECIMENOrdering Facility: [facility] Address:[address] [place], [place] [address]Performed By: #### 96480-0 ####[facility] LABCLIA [id number] [place], [place] [address]Juplxzoak (Bld) [#/Vol]0.92 10*3/uLHigh<0.87[facility] on above:Order Comment: Specimen Type: BLOOD SPECIMENOrdering Facility: [facility] Address:[address] [place], [place] [address]Performed By: #### 61680- 8 ####[facility] LABCLIA [id number] [place], [place] [address]Skquamaax/100 WBC (Bld)7.0 %NormalOhio State Health System on above:Order Comment: Specimen Type: BLOOD SPECIMENOrdering Facility: [facility] Address:[address] [place], [place] [address]Performed By: #### 03655-7 ####[facility] LABCLIA [id number] [place], [place] [address]Oryhnbcucbf (Bld) [#/Vol]9.94 10*3/uLHigh1.45-7.50[facility] on above:Order Comment: Specimen Type: BLOOD SPECIMENOrdering Facility: [facility] Address:[address] [place], [place] [address]Performed By: #### 98484-1 ####[facility] LABCLIA [id number] [place], [place] [address]Nvvqwbqnudt/100 WBC (Bld)75.5 %NormalOhio State Health System on above:Order Comment: Specimen Type: BLOOD SPECIMENOrdering Facility: [facility] Address:[address] [place], [place] [address]Performed By: #### 44768-1 ####[facility] LABCLIA [id number] [place], [place] [address]Rkwaewnod RBC (Bld) [#/Vol] 10*3/uLNormal<0.01[facility] on above:Order Comment: Specimen Type: BLOOD SPECIMENOrdering Facility: [facility] Address:[address] [place], [place] [address]Performed By: #### 74168-4 ####[facility] LABIA [id number] [place], [place] [address]Sksbnlvqq RBC/100 WBC (Bld) [Ratio]0.0 /100 WBCNormal [facility] on above:Order Comment: Specimen Type: BLOOD SPECIMENOrdering Facility: [facility] Address:[address] [place], [place] [address]Performed By: #### 56030-8 ####[facility] LABCLIA [id number] [place], [place] [address]Vtdicyxy mean volume (Bld) [Entitic vol]9.9 fLNormal9.0-12.7CTrinity [facility] on above:Order Comment: Specimen Type: BLOOD SPECIMENOrdering Facility: [facility] Address:[address] [place] [address] Performed By: #### 98696-3 ####[facility] LABCLIA [id number] [place], [place] [address]Ysvrqekcd (Bld) [#/Vol]305 10*3/gWNcsuvj044-803HdjkrluufOhio State Health System on above:Order Comment: Specimen Type: BLOOD SPECIMENOrdering Facility: [facility] Address:[address] [place], [place] [address]Performed By: #### 83000-6 ####[facility] LABCLIA [id number] [place], [place] [address]HHC (Bld) [#/Vol]4.77 10*6/uLNormal3.90-5.20[facility] on above:Order Comment: Specimen Type: BLOOD SPECIMENOrdering Facility: [facility] Address:[address] [place], [place] [address]Performed By: #### 09827-3 ####[facility] LABCLIA [id number] [place], [place] [address]SZD (Bld) [#/Vol]13.16 10*3/uLHigh3.70-11.00[facility] on above: Order Comment: Specimen Type: BLOOD SPECIMENOrdering Facility: [facility] Address:[address] [place], [place] [address]Performed By: #### 15620- 8 ####[facility] LABCLIA [id number] [facility] DRIVERPHOENIX INDI[facility] [place] [id number] 22-25-2883GOUPVCEkhaicQgporrvav Clinic [place] CNPNon 83-36-5655LTNYRiihquYocgqyfdj Clinic ClevelandComprehensive metabolic 2000 panelon 41-94-1229Aqjphny [Mass/Vol]4.3 g/dLNormal3.9-4.9CTrinity [facility] on above:Order Comment: Specimen Type: BLOOD SPECIMENOrdering Facility: [facility] Address:[address] [place], [place] [address]Performed By: #### 06298-8 ####[facility] LABCLIA [id number] OSORIO PERESMAGGYPHOENIX INDIAN MEDICAL CENTERAMAYARUBICON, [place] [address]QLH [Catalytic activity/Vol]83 U/DYapgfp76-202EqhfnktitOhio State Health System on above:Order Comment: Specimen Type: BLOOD SPECIMENOrdering Facility: [facility] Address:[address] [place], [place] [address]Performed By: #### 56282-1 ####[facility] LABCLIA [id number] [facility] NEISHAPHOENIX INDI[facility] MEDICAL CENTERAMAYARUBICON, [place] [address]YQW [Catalytic activity/Vol]49 U/LHigh7-38[facility] on above:Order Comment: Specimen Type: BLOOD SPECIMENOrdering Facility: [facility] Address:[address] [place], [place] [address]Performed By: #### 56494-6 ####[facility] LABCLIA [id number] [facility] MADRASMAGGYPHOENIX INDIAN MEDICAL CENTERCAYDENTOWNS[place], [place] [address]Aadvt gap [Moles/Vol]17 mmol/LHigh8-15[facility] on above:Order Comment: Specimen Type: BLOOD SPECIMENOrdering Facility: [facility] Address:[address] [place], [place] [address]Performed By: #### 46001- 8 ####[facility] LABCLIA [id number] [facility] NEISHAPHOENIX INDIAN MEDICAL CENTERAMAYARUBICON, [place] [address]DOW [Catalytic activity/Vol]20 U/HBbycli88-87CsrifpyobOhio State Health System on above:Order Comment: Specimen Type: BLOOD SPECIMENOrdering Facility: [facility] Address:[address] [place], [place] [address]Performed By: #### 12243-9 ####[facility] LABCLIA [id number] [facility] HOSPITALMAGGYPHOENIX INDIAN [place] [id number] [Mass/Vol]0.3 mg/dLNormal0.2-1.3CTrinity [facility] on above:Order Comment: Specimen Type: BLOOD SPECIMENOrdering Facility: [facility] Address:[address] [place], [place] [address]Performed By: #### 28448- 8 ####[facility] LABCLIA [id number] [facility] [place], [place] [address]Rhectqm [Mass/Vol]10.2 mg/dLNormal8.5-10.2CTrinity Health [facility] on above:Order Comment: Specimen Type: BLOOD SPECIMENOrdering Facility: [facility] Address:[address] [place], [place] [address]Performed By: #### 85001-7 ####[facility] LABCLIA [id number] [facility] [place]ASM[place], [place] [address]Wcmzzvtu [Moles/Vol]101 mmol/VWmukds76-003MbvthtxknOhio State Health System on above: Order Comment: Specimen Type: BLOOD SPECIMENOrdering Facility: [facility] Address:[address] [place], [place] [address]Performed By: #### 62577- 8 ####[facility] LABCLIA [id number] [facility] [place], [place] [address]OD4 [Moles/Vol]20 mmol/CKoj11-95HswllewuiOhio State Health System on above:Order Comment: Specimen Type: BLOOD SPECIMENOrdering Facility: [facility] Address:[address] [place], [place] [address]Performed By: #### 40307-3 ####[facility] LABCLIA [id number] [place], [place] [address]Oqxuudwkdi [Mass/Vol]0.49 mg/dL Low0.58-0.96[facility] on above:Order Comment: Specimen Type: BLOOD SPECIMENOrdering Facility: [facility] Address:[address] [place], [place] [address]Performed By: #### 84096-7 ####[facility] LABIA [id number] [place] [address] eGFRcr SerPlBld CKD-EPI 8858455 mL/min/1.73m???Normal>=60[facility] on above:Order Comment: Specimen Type: BLOOD SPECIMENOrdering Facility: [facility] Address:[address] [place], [place] [address]Result Comment: Estimated Glomerular Filtration Rate (eGFR) is [...] accurately reflect actual GFR. Performed By: #### 23319-6 ####[facility] LABIA [id number] [place], [place] [address]Hgvdsth [Mass/Vol]248 mg/dLHigh 74-99[facility] on above:Order Comment: Specimen Type: BLOOD SPECIMENOrdering Facility: [facility] Address:[address] [place], [place] [address]Result Comment: The [place] [employer] (ADA) provides guidance for [...] Standards of Medical Care in Diabetes 2016, [place] [employer]. Diabetes Care. 2016.39(Suppl 1).Performed By: #### 64763-3 ####[facility] LABCLIA [id number] [facility] [place], [place] [address]Fsgyqxyeu [Moles/Vol]4.1 mmol/LNormal3.7-5.1CTrinity Health [facility] on above:Order Comment: Specimen Type: BLOOD SPECIMENOrdering Facility: [facility] Address:[address] [place], [place] [address]Performed By: #### 15267-5 ####[facility] LABCLIA [id number] [place], [place] [address]Dasudsn [Mass/Vol]7.6 g/dLNormal6.3-8.0[facility] on above:Order Comment: Specimen Type: BLOOD SPECIMENOrdering Facility: [facility] Address:[address] [place], [place] [address]Performed By: #### 39213- 8 ####[facility] LABCLIA [id number] [place], [place] [address]Rtmpic [Moles/Vol]138 mmol/RGuumzr280-159IrogpzegwOhio State Health System on above:Order Comment: Specimen Type: BLOOD SPECIMENOrdering Facility: [facility] Address:[address] [place], [place] [address]Performed By: #### 35002-7 ####[facility] LABCLIA [id number] [place], [place] [address]Bibi nitrogen [Mass/Vol]16 mg/dLNormal7-21[facility] on above:Order Comment: Specimen Type: BLOOD SPECIMENOrdering Facility: [facility] Address:[address] [place], [place] [address]Performed By: #### 52046-9 ####[facility] LABCLIA [id number] [place], [place] [address]Mvfihipc SerPl-mCncon 91-79-3649Demxlblg [Mass/Vol]83.6 ng/iCIifhcl26.7-205.1CTrinity [facility] on above:Order Comment: Specimen Type: BLOOD SPECIMENOrdering Facility: [facility] Address:[address] [place], [place] [address]Performed By: #### 25639-2, 9, 8, 2275-4 ####[facility] LABCLIA [id number] [place] [address] [place] AMERICAFolate SerPl-mCncon 60-85-8207Diavnh [Mass/Vol]ng/mLNormal>4.7CTrinity Health System [facility] on above:Order Comment: Specimen Type: BLOOD SPECIMENOrdering Facility: [facility] Address:[address] [place], [place] [address]Result Comment: A result of > 20 ng/mL is not necessarily indicative of a pathologic or treatable condition: it reflects a limitation of the test methodology.Assay reference range: 4.8 to 24.2 ng/mL. Suitable for detection of folate deficiency.Reference:Folate III (Folate III) [package insert V 1.0 Luxembourger]. [facility], [place], [place]: March 2015.Performed By: #### 79568-5, 9, 8, 4 ####[facility] LABIA [id number] [place] [address] [place] IMMUNOGLOBULINS,IGG,IGA,IGMon 54-72-0791JsN [Mass/Vol]184 mg/oNFlonlv62-296 [facility] on above:Order Comment: Specimen Type: BLOOD SPECIMENOrdering Facility: [facility] Address:[address] [place], [place] [address]Performed By: #### SERIMM ####[facility] LABCLIA [id number] [place] [address] [place] AMERICAIgG [Mass/Vol]610 mg/yNUpw053-5631XlbpldzniOhio State Health System on above:Order Comment: Specimen Type: BLOOD SPECIMENOrdering Facility: [facility] Address:[address] [place], [place] [address]Performed By: #### SERIMM ####[facility] LABCLIA [id number] [address] [address] [place] AMERICAIgM [Mass/Vol]454 mg/dL Jdys25-179BubulzwmnOhio State Health System on above:Order Comment: Specimen Type: BLOOD SPECIMENOrdering Facility: [facility] Address:[address] [place], [place] [address]Performed By: #### SERIMM ####[facility] LABCLIA [id number] [address] [address] [place] OF AMERICAIron and Iron binding capacity panelon 74-75-5010Mkne [Mass/Vol]156 ug/uDRqffvp08-643UpdiobammOhio State Health System on above:Order Comment: Specimen Type: BLOOD SPECIMENOrdering Facility: [facility] Address:[address] [place], [place] [address]Performed By: #### 44000- 8, 9, 8, 2275-4 ####[facility] LABCLIA [id number] [address] [place] AMERICAIron binding capacity [Mass/Vol]443 ug/sAUqax069-818MxwrobetxOhio State Health System on above:Order Comment: Specimen Type: BLOOD SPECIMENOrdering Facility: [facility] Address:[address] [place], [place] [address] Performed By: #### 26044-9, 9, 8, 2275-4 ####[facility] LABCLIA [id number] [address] [address] [place] AMERICAIron/TIBC [Molar ratio]35.2 %Kyygkr96.0-57.0[facility] on above:Order Comment: Specimen Type: BLOOD SPECIMENOrdering Facility: [facility] Address:[address] [place] [address]Nywywyufr By: #### 14318-6, 9, 2283-8, 6-4 ####[facility] LABCLIA [id number] [address] [address] [place] AMERICAVit B12 SerPl-mCncon 98-45-3721Nfmqrjkjz (Vitamin B12) [Mass/Vol]694 pg/cAOsjfoz316-7822Inggebinf Clinic ClevelandComment on above: Order Comment: Specimen Type: BLOOD SPECIMENOrdering Facility: [facility] Address:[address] [place], [place] [address]Performed By: #### 67266- 8, 9, 4-8, 6-4 ####[facility] LABCLIA [id number] [place] [id number] [place] AMERICACNPNon 61-74-8634DYTLQsuspjXmjttrohu Clinic ClevelandHCG ( test) [place].rapid Ql (U)Ordered By: Adolfo Kang on 25-62-5544KBH ( test) Ql (U)Negative [facility] HospitalHCG,Urineon 08-30-6366Gdem HCG ( test) Ql (U)NegativeNoMission Family Health Center Physician GroupComment on above:Result Comment: PERFORMED BY: [facility] [address] [facility] [place] [address] PATHOLOGIST [employer]ST[employer] TIM FOOTE M.D.Performed By: #### UHCG #### [place] [id number] USABI US BREAST LIMITED LEFTon 27-74-6733AY US BREAST LIMITED LEFTThis is a summary [...] SIGNED BY: Yassine Owens M.D.NormalNot AvailableCNPNon 01-18-2025 CNPNNormalWhite Hospital25([place])D3 SerPl-mCncon 56-34-037264- hydroxyvitamin D3 [Mass/Vol]32.2 ng/jRKlsiqp80.0-80.0[facility] Comment on above:Order Comment: Specimen Type: BLOOD SPECIMENOrdering Facility: [facility] Address:[address] [place] [address] Performed By: #### 1989-3 ####[facility] LABCLIA [id number] [address] [place] BLOOD TB SCREENon 01-11-2025M. tuberculosis tuberculin stim IFN-g Ql (Bld) NegativeNormalCSycamore Medical CenterComment on above:Order Comment: Specimen Type: BLOOD SPECIMENOrdering Facility: [facility] Address:[address] [place], [place] [address]Performed By: #### INFTBP ####[facility] LABCLIA [id number] [place] [address] [place] AMERICAMITOGEN MINUS NIL>9.97Normal>=0.50[facility] on above:Order Comment: Specimen Type: BLOOD SPECIMENOrdering Facility: [facility] Address:[address] [place], [place] [address]Performed By: #### INFTBP ####[facility] LABCLIA [id number] [place] [address] [place] TB GAMMA INTERPRETATIONNormalCTrinity Health System East Campus on above:Order Comment: Specimen Type: BLOOD SPECIMENOrdering Facility: [facility] Address:[address] [place], [place] [address]Performed By: #### INFTBP ####[facility] LABCLIA [id number] [place] [address] [place] AMERICATB NIL0.03 IU/mLNormal<=8.00 [facility] on above:Order Comment: Specimen Type: BLOOD SPECIMENOrdering Facility: [facility] Address:[address] [place], [place] [address]Performed By: #### INFTBP ####[facility] LABCLIA [id number] [place] [address] [place] AMERICATB1 AG MINUS NIL0.01 IU/mLNormal<0.35[facility] on above:Order Comment: Specimen Type: BLOOD SPECIMENOrdering Facility: [facility] Address:[address] [place], [place] [address]Performed By: #### INFTBP ####[facility] LABCLIA [id number] [place] [address] [place] AMERICATB2 AG MINUS NIL0.01 IU/mLNormal<0.35[facility] on above:Order Comment: Specimen Type: BLOOD SPECIMENOrdering Facility: [facility] Address:[address] [place], [place] [address]Performed By: #### INFTBP ####[facility] LABCLIA [id number] [place] [id number] [facility] panel Auto (Bld)on 01-11-2025 Erythrocyte distribution width (RBC) [Ratio]14.5 %11.5 - 15.0 %[facility] Hematocrit (Bld) [Volume fraction]41.5 %36.0 - 46.0 %[facility] HospitalHemoglobin (Bld) [Mass/Vol]13.8 g/dL11.5 - 15.5 g/dLDetwiler Memorial HospitalInterpretation and review of laboratory resultsAbnormalCCleveland ClinicH (RBC) [Entitic mass]32.2 pg26.0 - 34.0 pgCCleveland ClinicHC (RBC) [Mass/Vol]33.3 g/dL30.5 - 36.0 g/dL [facility] HospitalMCV (RBC) [Entitic vol]96.7 fL80.0 - 100.0 fLCOhio Valley Surgical Hospital Nucleated RBC (Bld) [#/Vol]NINFCOhio Valley Surgical HospitalPlatelet mean volume (Bld) [Entitic vol]10.6 fL9.0 - 12.7 fLCOhio Valley Surgical HospitalPlatelets (Bld) [#/Vol]265 10*3/[facility] HospitalRBC (Bld) [#/Vol]4.29 10*6/uL3.90 - 5.20 m/[facility] Memorial HospitalWBC (Bld) [#/Vol]12.61 10*3/uLSt. Francis Hospital Erythrocyte distribution width (RBC) [Ratio]14.5 %Zzstfy77.5-15.0White HospitalComformerly [facility] on above:Order Comment: Specimen Type: BLOOD SPECIMENOrdering Facility: [facility] Address:[address] [place] [address]Ueepwdkwo By: #### 06094-1 ####[facility] LABCLIA [id number] [place], [place] [address]Iurghvvfyw (Bld) [Volume fraction]41.5 %Mvbhiz94.0-46.0[facility] on above:Order Comment: Specimen Type: BLOOD SPECIMENOrdering Facility: [facility] Address:[address] [place] [address]Dmyftdnuv By: #### 11909-6 ####[facility] LABCLIA [id number] [place], [place] [address]Aqbetjpjxo (Bld) [Mass/Vol]13.8 g/eNUbpxna05.5-15.5 [facility] on above:Order Comment: Specimen Type: BLOOD SPECIMENOrdering Facility: [facility] Address:[address] [place], [place] [address]Performed By: #### 87027-3 ####[facility] LABCLIA [id number] [place], [place] [address]YDJ (RBC) [Entitic mass]32.2 imTmgdxr41.0-34.0[facility] on above: Order Comment: Specimen Type: BLOOD SPECIMENOrdering Facility: [facility] Address:[address] [place], [place] [address]Performed By: #### 03902- 2 ####[facility] LABCLIA [id number] [place], [place] [address]AVPB (RBC) [Mass/Vol]33.3 g/kOMtyzgx43.5-36.0[facility] on above:Order Comment: Specimen Type: BLOOD SPECIMENOrdering Facility: [facility] Address:[address] [place], [place] [address]Performed By: #### 49821-9 ####[facility] LABCLIA [id number] [place], [place] [address]GID (RBC) [Entitic vol]96.7 dNFolxbs45.0-100.0[facility] on above: Order Comment: Specimen Type: BLOOD SPECIMENOrdering Facility: [facility] Address:[address] [place], [place] [address]Performed By: #### 33186- 2 ####[facility] LABCLIA [id number] [place], [place] [address]Eclocmjaz RBC (Bld) [#/Vol]10*3/uLNormal<0.01[facility] on above:Order Comment: Specimen Type: BLOOD SPECIMENOrdering Facility: [facility] Address:[address] [place], [place] [address]Performed By: #### 13303-6 ####[facility] LABCLIA [id number] [place], [place] [address]Zrorrnhq mean volume (Bld) [Entitic vol]10.6 fLNormal9.0-12.7CTr[facility] on above:Order Comment: Specimen Type: BLOOD SPECIMENOrdering Facility: [facility] Address:[address] [place] [address] Performed By: #### 77586-7 ####[facility] LABCLIA [id number] [place], [place] [address]Wfjbggtmr (Bld) [#/Vol]265 10*3/cUXzrafp676-310QramkkazxOhio [facility] on above:Order Comment: Specimen Type: BLOOD SPECIMENOrdering Facility: [facility] Address:[address] [place], [place] [address]Performed By: #### 42127-4 ####[facility] LABCLIA [id number] [place], [place] [address]LUD (Bld) [#/Vol]4.29 10*6/uLNormal3.90-5.20[facility] on above:Order Comment: Specimen Type: BLOOD SPECIMENOrdering Facility: [facility] Address:[address] [place], [place] [address]Performed By: #### 43218-9 ####[facility] LABIA [id number] [place], [place] [address]BNR (Bld) [#/Vol]12.61 10*3/uLHigh3.70-11.00[facility] on above: Order Comment: Specimen Type: BLOOD SPECIMENOrdering Facility: [facility] Address:[address] [place] [address]Yvrjclipt By: #### 48764- 2 ####[facility] LABCLIA [id number] [place], [place] [address]GJS SerPl-mCncon 94-41-2045CWE [Mass/Vol]mg/LNormal<0.9 [facility] HospitalComment on above:Order Comment: Specimen Type: BLOOD SPECIMENOrdering Facility: [facility] Address:[address] [place] [address]Fhhmafhpg By: #### 1988-5, 9 ####[facility] LABCLIA [id number] [address] OF [facility] CENTERComprehensive metabolic 2000 panelOrdered By: Josse Merlos on 37-02-9846Mqpovis [Mass/Vol]3.9 g/dL3.9 - 4.9 g/dLOcean Isle Beach ClinicALP [Catalytic activity/Vol]83 U/L34 - 123 U/LCleveland ClinicALT [Catalytic activity/Vol]42 U/LHigh7 - 38 U/LCleveland ClinicAnion gap [Moles/Vol]10 mmol/L8 - 15 mmol/L [place] [facility] ClinicAST [Catalytic activity/Vol]22 U/L13 - 35 U/LC[facility] Bilirubin [Mass/Vol]0.2 mg/dL0.2 - 1.3 mg/dLOcean Isle Beach ClinicCalcium [Mass/Vol] 9.7 mg/dL8.5 - 10.2 mg/dLOcean Isle Beach ClinicChloride [Moles/Vol]103 mmol/L98 - 107 mmol/LCleveland ClinicCO2 [Moles/Vol]23 mmol/L22 - 30 mmol/LC[facility] Clinic Creatinine [Mass/Vol]0.50 mg/dLLow0.58 - 0.96 mg/dLDetwiler Memorial HospitalGFR/1.73 sq M.predicted among non-blacks MDRD (S/P/Bld) [...] eGFRmay not accurately reflect actual GFR.Glucose [Mass/Vol]221 mg/gQChyf36 - 99 mg/dLProMedica Bay Park Hospital on above:The [place] Diabetes Association (ADA) provides guidance for [...] Standards of Medical Care in Diabetes 2016, [place] [employer] Association. Diabetes Care. 2016.39(Suppl 1). Interpretation and review of laboratory resultsAbnormalCleveland ClinicPotassium [Moles/Vol]4.1 mmol/L3.7 - 5.1 mmol/LCtrihealth good samaritan hospital ClinicProtein [Mass/Vol]6.8 g/dL 6.3 - 8.0 g/dLMount Carmel Health Systemodium [Moles/Vol]136 mmol/L136 - 144 mmol/L Detwiler Memorial HospitalUrea nitrogen [Mass/Vol]15 mg/dL7 - 21 mg/dLBarney Children's Medical Centerprehensive metabolic 2000 panelon 07-27-6659Jotkrqp [Mass/Vol]3.9 g/dLNormal3.9-4.9CTrinity Health System [facility] on above:Order Comment: Specimen Type: BLOOD SPECIMENOrdering Facility: [facility] Address:[address] [place], [place] [address]Bwjraapyc By: #### 60373- 8 ####[facility] LABCLIA [id number] [place], [place] [address]KXP [Catalytic activity/Vol]83 U/DZmwcrr03-220DoqsgnnnkOhio State Health System on above:Order Comment: Specimen Type: BLOOD SPECIMENOrdering Facility: [facility] Address:[address] [place], [place] [address]Performed By: #### 34062-6 ####[facility] LABCLIA [id number] [facility] HOSPITALCAYDENTOWNSEND, [place] [address]JSG [Catalytic activity/Vol]42 U/LHigh7-38[facility] on above:Order Comment: Specimen Type: BLOOD SPECIMENOrdering Facility: [facility] Address:[address] [place], [place] [address]Performed By: #### 06158- 8 ####[facility] LABCLIA [id number] [place], [place] [address]Zcwnv gap [Moles/Vol]10 mmol/LNormal8-15[facility] on above:Order Comment: Specimen Type: BLOOD SPECIMENOrdering Facility: [facility] Address:[address] [place], [place] [address]Performed By: #### 29634-8 ####[facility] LABCLIA [id number] [place], [place] [address]XNB [Catalytic activity/Vol]22 U/AKhzpyb00-62AtkgjvpmkOhio State Health System on above:Order Comment: Specimen Type: BLOOD SPECIMENOrdering Facility: [facility] Address:[address] [place], [place] [address]Performed By: #### 81532-0 ####[facility] LABCLIA [id number] [place] [address] Bilirubin [Mass/Vol]0.2 mg/dLNormal0.2-1.3CTrinity Health System [facility] Campus on above:Order Comment: Specimen Type: BLOOD SPECIMENOrdering Facility: [facility] Address:[address] [place], [place] [address]Performed By: #### 28283-5 ####[facility] LABCLIA [id number] [place], [place] [address]Nzaicsy [Mass/Vol]9.7 mg/dLNormal8.5-10.2CTrinity Health System [facility] on above:Order Comment: Specimen Type: BLOOD SPECIMENOrdering Facility: [facility] Address:[address] [place], [place] [address]Performed By: #### 90536-7 ####[facility] LABCLIA [id number] [place], [place] [address]Qfrbsitl [Moles/Vol]103 mmol/NYaqmad95-420DxmbkapvuOhio State Health System on above: Order Comment: Specimen Type: BLOOD SPECIMENOrdering Facility: [facility] Address:[address] [place], [place] [address]Performed By: #### 62842- 8 ####[facility] LABCLIA [id number] [place], [place] [address]TU1 [Moles/Vol]23 mmol/NDwsgxq85-07JfpckmmaxOhio State Health System on above:Order Comment: Specimen Type: BLOOD SPECIMENOrdering Facility: [facility] Address:[address] [place], [place] [address]Performed By: #### 60660-3 ####[facility] LABCLIA [id number] [place], [place] [address]Olqcqjyzha [Mass/Vol]0.50 mg/dL Low0.58-0.96[facility] on above:Order Comment: Specimen Type: BLOOD SPECIMENOrdering Facility: [facility] Address:[address] [place], [place] [address]Performed By: #### 07561-9 ####[facility] LABCLIA [id number] [place] [address] eGFRcr SerPlBld CKD-EPI 0523004 mL/min/1.73m???Normal>=60[facility] on above:Order Comment: Specimen Type: BLOOD SPECIMENOrdering Facility: [facility] Address:[address] [place], [place] [address]Result Comment: Estimated Glomerular Filtration Rate (eGFR) is [...] accurately reflect actual GFR. Performed By: #### 76394-6 ####[facility] LABCLIA [id number] [place], [place] [address]Kejroor [Mass/Vol]221 mg/dLHigh 74-99[facility] on above:Order Comment: Specimen Type: BLOOD SPECIMENOrdering Facility: [facility] Address:[address] [place], [place] [address]Result Comment: The [place] Diabetes Association (ADA) provides guidance for [...] Standards of Medical Care in Diabetes 2016, [place] Diabetes Association. Diabetes Care. 2016.39(Suppl 1).Performed By: #### 76746-4 ####[facility] LABCLIA [id number] [place], [place] [address]Pijoustss [Moles/Vol]4.1 mmol/LNormal3.7-5.1CTrinity Health System [facility] Campus on above:Order Comment: Specimen Type: BLOOD SPECIMENOrdering Facility: [facility] Address:[address] [address]Performed By: #### 08970-3 ####[facility] LABCLIA [id number] [place], [place] [address]Jpdvfbl [Mass/Vol]6.8 g/dLNormal6.3-8.0[facility] on above:Order Comment: Specimen Type: BLOOD SPECIMENOrdering Facility: [facility] Address:[address] [place], [place] [address]Performed By: #### 47378- 8 ####[facility] LABCLIA [id number] [place], [place] [address]Xrdvxb [Moles/Vol]136 mmol/SUypgkd129-595QgyqdpjvcOhio State Health System on above:Order Comment: Specimen Type: BLOOD SPECIMENOrdering Facility: [facility] Address:[address] [place], [place] [address]Performed By: #### 14734-8 ####[facility] LABCLIA [id number] [place], [place] [address]Hxbx nitrogen [Mass/Vol]15 mg/dLNormal7-21[facility] on above:Order Comment: Specimen Type: BLOOD SPECIMENOrdering Facility: [facility] Address:[address] [place], [place] [address]Performed By: #### 93286-3 ####[facility] LABCLIA [id number] [place], [place] [address]SGU Westergren method (Bld) [Velocity]on 27-24-3718SIX (Bld) [Velocity]34 mm/hHigh0-20[facility] on above:Order Comment: Specimen Type: BLOOD SPECIMENOrdering Facility: [facility] Address:[address] [place], [place] [address]Performed By: #### 4537-7 ####[facility] LABCLIA [id number] [place] [address] [place] AMERICAHBV core Ab Ser Qlon 01-11-2025 HBV core Ab Ql (S)NegativeNormalNegativeOhio State Health System on above:Order Comment: Specimen Type: BLOOD SPECIMENOrdering Facility: [facility] Address:[address] [place] [address]Xucgwt Comment: No evidence of current or past infection with Hepatitis B virus. Should recent infection be suspected, repeat testing may be considered 3-4 weeks after this draw.Performed By: #### 5195-3, 76862-1, 27177-0 ####[facility] LABIA [id number] [address] [place] AMERICAHBV surface Ab Ql (S)on 60-64-3904YPR surface Ab Qn (S)177.77 mIU/mLNormalWhite HospitalComformerly [facility] on above:Order Comment: Specimen Type: BLOOD SPECIMENOrdering Facility: [facility] Address:[address] [place], [place] [address]Result Comment: <8 mIU/mL: No serological evidence of immunity to Hepatitis B Virus.>/= 8 to <12 mIU/mL: No serological evidence of immunity to Hepatitis B Virus.>/= 12 mIU/mL: Consistentwith serological evidence of immunity to Hepatitis B Virus.Performed By: #### 5195-3, 77378-2, 85755-2 ####[facility] LABIA [id number] [address] [place] AMERICAHBV surface Ab Ser Ql on 69-59-6967QQW surface Ab Ql (S)PositiveNormalCSycamore Medical Center Comment on above:Order Comment: Specimen Type: BLOOD SPECIMENOrdering Facility: [facility] Address:[address] [place] [address]Qmvzxw Comment: Consistent with serological evidence of immunity to Hepatitis B Virus. Performed By: #### 5195-3, 47263-4, 84941-1 ####[facility] LABPOR[facility] [id number] [address] [place] AMER[place]AHBV surface Ag Ser Qlon 07-98-3845SXO surface Ag Ql (S)NegativeNormal NegativeOhio State Health System on above:Order Comment: Specimen Type: BLOOD SPECIMENOrdering Facility: [facility] Address:[address] [place], [place] [address]Performed By: #### 5195-3, 56588-8, 92118-2 ####[facility] LABCLIA [id number] [address] STATES OF [facility] MEDICAL CENTERHCV Ab Ser Qlon 78-52-8256XET Ab Ql (S)NegativeNormalNegativeOhio State Health System on above:Order Comment: Specimen Type: BLOOD SPECIMENOrdering Facility: [facility] Address:[address] [place], [place] [address]Result Comment: The result suggests no evidence of infection with Hepatitis C virus. Should recent i nfection be suspected, repeat testing may be considered 4-6 weeks after this draw.Performed By: #### 78242-9 ####[facility] LABCLIA [id number] [place] [address] [place] Vit B12 SerPl-mCncon 01-71-9070Xegduispe (Vitamin B12) [Mass/Vol]710 pg/mLNormal 232-1245CTrinity Health System [facility] on above:Order Comment: Specimen Type: BLOOD SPECIMENOrdering Facility: [facility] Address:[address] [place], [place] [address]Performed By: #### 1988-5, 2132-9 ####[facility] LABCLIA [id number] [place] [address] [place] [facility] CENTERCB W Auto Differential panel (Bld)on 11-29-2024 Basophils (Bld) [#/Vol]0.09 10*3/uLNormal<0.11CTrinity Health System [facility] on above:Order Comment: Specimen Type: BLOOD SPECIMENOrdering Facility: [facility] Address:[address] [place] [address] Performed By: #### 83796-9 ####[facility] LABCLIA [id number] [place], [place] [address]Latgrvyjm/100 WBC (Bld)0.7 % NormalOhio State Health System on above:Order Comment: Specimen Type: BLOOD SPECIMENOrdering Facility: [facility] Address:[address] [place], [place] [address]Performed By: #### 98237-0 ####[facility] LABIA [id number] [place] [address] Differential cell count method Nom (Bld)AutoNormalClevelFormerly [facility] Comment on above:Order Comment: Specimen Type: BLOOD SPECIMENOrdering Facility: [facility] Address:[address] [place] [address] Performed By: #### 33914-6 ####[facility] LABIA [id number] [place], [place] [address]Llhnvyzxmyx (Bld) [#/Vol]0.09 10*3/uLNormal<0.46[facility] on above:Order Comment: Specimen Type: BLOOD SPECIMENOrdering Facility: [facility] Address:[address] [place], [place] [address]Performed By: #### 13139-1 ####[facility] LABIA [id number] [place], [place] [address]Epflsadfuxi/100 WBC (Bld)0.7 %NormalOhio State Health System on above:Order Comment: Specimen Type: BLOOD SPECIMENOrdering Facility: [facility] Address:[address] [place], [place] [address]Performed By: #### 52157-7 ####[facility] LABIA [id number] [place], [place] [address]Aadcukhanwb distribution width (RBC) [Ratio]14.8 %Zyotxb59.5-15.0[facility] on above: Order Comment: Specimen Type: BLOOD SPECIMENOrdering Facility: [facility] Address:[address] [place], [place] [address]Performed By: #### 39134- 8 ####[facility] LABIA [id number] [place], [place] [address]Rztrhqnxcx (Bld) [Volume fraction]42.9 %Ytihgn39.0-46.0 [facility] on above:Order Comment: Specimen Type: BLOOD SPECIMENOrdering Facility: [facility] Address:[address] [place], [place] [address]Performed By: #### 86966-9 ####[facility] LABIA [id number] [place], [place] [address]Qusdatanrp (Bld) [Mass/Vol]14.0 g/qGErgqib09.5-15.5CTrinity Health System [facility] on above: Order Comment: Specimen Type: BLOOD SPECIMENOrdering Facility: [facility] Address:[address] [place], [place] [address]Performed By: #### 99899- 8 ####[facility] LABIA [id number] [place], [place] [address]Tyyhilmf granulocytes (Bld) [#/Vol]0.18 10*3/uLHigh<0.10 [facility] on above:Order Comment: Specimen Type: BLOOD SPECIMENOrdering Facility: [facility] Address:[address] [place], [place] [address]Performed By: #### 07193-2 ####[facility] LABIA [id number] [place], [place] [address]Qvrgaawj granulocytes/100 WBC (Bld)1.5 %NormalOhio State Health System on above: Order Comment: Specimen Type: BLOOD SPECIMENOrdering Facility: [facility] Address:[address] [place], [place] [address]Performed By: #### 64553- 8 ####[facility] LABIA [id number] [place], [place] [address]Gizxroesgtr (Bld) [#/Vol]1.99 10*3/uLNormal1.00-4.00 [facility] on above:Order Comment: Specimen Type: BLOOD SPECIMENOrdering Facility: [facility] Address:[address] [place], [place] [address]Performed By: #### 76356-5 ####[facility] LABIA [id number] [place], [place] [address]Gejnzjshxqk/100 WBC (Bld)16.4 %NormalOhio State Health System on above:Order Comment: Specimen Type: BLOOD SPECIMENOrdering Facility: [facility] Address:[address] [place], [place] [address]Performed By: #### 53894-0 ####[facility] LABCLIA [id number] [place], [place] [address]TZF (RBC) [Entitic mass]31.7 feZdvomw50.0-34.0[facility] on above:Order Comment: Specimen Type: BLOOD SPECIMENOrdering Facility: [facility] Address:[address] [place], [place] [address]Performed By: #### 16369-8 ####[facility] LABCLIA [id number] [place], [place] [address]NPYX (RBC) [Mass/Vol]32.6 g/rOKkhwsj62.5-36.0[facility] on above: Order Comment: Specimen Type: BLOOD SPECIMENOrdering Facility: [facility] Address:[address] [place], [place] [address]Performed By: #### 05145- 8 ####[facility] LABCLIA [id number] [place], [place] [address]FBO (RBC) [Entitic vol]97.1 nHShdbma68.0-100.0[facility] on above:Order Comment: Specimen Type: BLOOD SPECIMENOrdering Facility: [facility] Address:[address] [place], [place] [address]Performed By: #### 17051-3 ####[facility] LABCLIA [id number] [place], [place] [address]Cjjfnknts (Bld) [#/Vol]0.67 10*3/uLNormal<0.87[facility] on above:Order Comment: Specimen Type: BLOOD SPECIMENOrdering Facility: [facility] Address:[address] [place], [place] [address]Performed By: #### 70809- 8 ####[facility] LABCLIA [id number] [place], [place] [address]Jskucoecj/100 WBC (Bld)5.5 %NormalOhio State Health System on above:Order Comment: Specimen Type: BLOOD SPECIMENOrdering Facility: [facility] Address:[address] [place], [place] [address]Performed By: #### 88572-5 ####[facility] LABIA [id number] [place], [place] [address]Kdcyewgxzdb (Bld) [#/Vol]9.15 10*3/uLHigh1.45-7.50[facility] on above:Order Comment: Specimen Type: BLOOD SPECIMENOrdering Facility: [facility] Address:[address] [place], [place] [address]Performed By: #### 56745-7 ####[facility] LABCLIA [id number] [place], [place] [address]Ycubtezdxls/100 WBC (Bld)75.2 %NormalOhio State Health System on above:Order Comment: Specimen Type: BLOOD SPECIMENOrdering Facility: [facility] Address:[address] [place], [place] [address]Performed By: #### 64830-4 ####[facility] LABIA [id number] [place], [place] [address]Tslouvkqk RBC (Bld) [#/Vol] 10*3/uLNormal<0.01[facility] on above:Order Comment: Specimen Type: BLOOD SPECIMENOrdering Facility: [facility] Address:[address] [place], [place] [address]Performed By: #### 65208-8 ####[facility] LABCLIA [id number] [place], [place] [address]Wpzwwspjh RBC/100 WBC (Bld) [Ratio]0.0 /100 WBCNormal [facility] on above:Order Comment: Specimen Type: BLOOD SPECIMENOrdering Facility: [facility] Address:[address] [place], [place] [address]Performed By: #### 68127-5 ####[facility] LABCLIA [id number] [place], [place] [address]Ivcbpend mean volume (Bld) [Entitic vol]9.7 fLNormal9.0-12.7CTrinity Health System [facility] Campus on above:Order Comment: Specimen Type: BLOOD SPECIMENOrdering Facility: [facility] Address:[address] [place] [address] Performed By: #### 78610-8 ####[facility] LABCLIA [id number] [place], [place] [address]Vdceiioxk (Bld) [#/Vol]281 10*3/kTHrpvrc459-361HzziywpnfOhio State Health System on above:Order Comment: Specimen Type: BLOOD SPECIMENOrdering Facility: [facility] Address:[address] [place], [place] [address]Performed By: #### 19980-1 ####[facility] LABCLIA [id number] [place], [place] [address]OZI (Bld) [#/Vol]4.42 10*6/uLNormal3.90-5.20[facility] on above:Order Comment: Specimen Type: BLOOD SPECIMENOrdering Facility: [facility] Address:[address] [place], [place] [address]Performed By: #### 48979-3 ####[facility] LABCLIA [id number] [facility]ENTERPHOENIX INDI[facility] MEDICAL CENTERCAYDENTOWNSEND, [place] [address]DYG (Bld) [#/Vol]12.17 10*3/uLHigh3.70-11.00[facility] on above: Order Comment: Specimen Type: BLOOD SPECIMENOrdering Facility: [facility] Address:[address] [place], [place] [address]Performed By: #### 65510- 8 ####[facility] LABCLIA [id number] [facility] JA DRIVERPHOENIX INDIAN MEDICAL CENTERAMAYARUBICON, [place] [address]AHDFPNqy 66-50-0946KFEVNNWljzpiVelekacdzSalem City Hospital metabolic 2000 panelon 08-42-4388Xzkpzrc [Mass/Vol]4.1 g/dLNormal 3.9-4.9CTrinity [facility] on above:Order Comment: Specimen Type: BLOOD SPECIMENOrdering Facility: [facility] Address:[address] [place], [place] [address]Performed By: #### 31466-1 ####[facility] LABCLIA [id number] [facility] [place], [place] [address]USC [Catalytic activity/Vol]61 U/PCdrjph98-083TqkhxlbthOhio State Health System on above:Order Comment: Specimen Type: BLOOD SPECIMENOrdering Facility: [facility] Address:[address] [place], [place] [address]Performed By: #### 10520-3 ####[facility] LABCLIA [id number] [facility] [place], [place] [address]PCI [Catalytic activity/Vol]39 U/LHigh7-38[facility] on above:Order Comment: Specimen Type: BLOOD SPECIMENOrdering Facility: [facility] Address:[address] [place], [place] [address]Performed By: #### 00392-3 ####[facility] LABCLIA [id number] [facility] [place], [place] [address]Dwbco gap [Moles/Vol]13 mmol/LNormal8-15[facility] on above:Order Comment: Specimen Type: BLOOD SPECIMENOrdering Facility: [facility] Address:[address] [place], [place] [address]Performed By: #### 72231- 8 ####[facility] LABCLIA [id number] [facility] [place], [place] [address]IBY [Catalytic activity/Vol]16 U/EYfelcr98-38SzecmgemuOhio State Health System on above:Order Comment: Specimen Type: BLOOD SPECIMENOrdering Facility: [facility] Address:[address] [place], [place] [address]Performed By: #### 83620-1 ####[facility] LABCLIA [id number] [place], [place] [address]Qadaygdzt [Mass/Vol]0.2 mg/dLNormal0.2-1.3CTrinity [facility] on above:Order Comment: Specimen Type: BLOOD SPECIMENOrdering Facility: [facility] Address:[address] [place], [place] [address]Performed By: #### 52517- 8 ####[facility] LABCLIA [id number] [facility] [place], [place] [address]Amccpjd [Mass/Vol]9.7 mg/dLNormal8.5-10.2CTrinity Health [facility] on above:Order Comment: Specimen Type: BLOOD SPECIMENOrdering Facility: [facility] Address:[address] [place], [place] [address]Performed By: #### 88513-4 ####[facility] LABCLIA [id number] [place], [place] [address]Hzfyjnfg [Moles/Vol]102 mmol/L Pstwxz12-678DrtrasqehOhio State Health System on above:Order Comment: Specimen Type: BLOOD SPECIMENOrdering Facility: [facility] Address:[address] [place], [place] [address]Performed By: #### 49750-0 ####[facility] LABCLIA [id number] [place] [address] CO2 [Moles/Vol]23 mmol/VGlgafe15-14OperbfxpjOhio State Health System on above: Order Comment: Specimen Type: BLOOD SPECIMENOrdering Facility: [facility] Address:[address] [place], [place] [address]Performed By: #### 06965- 8 ####[facility] LABCLIA [id number] [place], [place] [address]Gfwdzxwoad [Mass/Vol]0.58 mg/dLNormal0.58-0.96[facility] on above:Order Comment: Specimen Type: BLOOD SPECIMENOrdering Facility: [facility] Address:[address] [place], [place] [address]Performed By: #### 34655-0 ####[facility] LABCLIA [id number] [place], [place] [address]Jcfhmohqtg and Glomerular filtration rate.predicted panel (S/P/Bld)115 mL/min/1.73m???Normal >=60[facility] on above:Order Comment: Specimen Type: BLOOD SPECIMENOrdering Facility: [facility] Address:[address] [place], [place] [address]Result Comment: Estimated Glomerular Filtration Rate (eGFR) is calculated using the 2020 CKD-EPI creatinine equation. This equation utilizes serum creatinine, sex, and age as parameters. The creatinine assay has traceable calibration to isotope dilution-mass spectrometry. Refer to KDIGO guidelines for clinical interpretation. In patients with unstable renal function, e.g. those with acute kidney injury, the eGFR may not accurately reflect actual GFR.Performed By: #### 92979-6 ####[facility] LABCLIA [id number] [place], [place] [address]Tblrqsn [Mass/Vol]233 mg/qGWzgq19-33TnnmaaefuOhio State Health System on above:Order Comment: Specimen Type: BLOOD SPECIMENOrdering Facility: [facility] Address:[address] [place], [place] [id number] Comment: The [place] [employer] (ADA) provides guidance for [...] Standards of Medical Care in Diabetes 2016, [place] [employer]. Diabetes Care. 2016.39(Suppl 1).Performed By: #### 44919-9 ####[facility] LABCLIA [id number] [place], [place] [address]Foinjqihz [Moles/Vol]4.0 mmol/LNormal3.7-5.1CTrinity [facility] on above: Order Comment: Specimen Type: BLOOD SPECIMENOrdering Facility: [facility] Address:[address] [address] [place], [place] [address]Performed By: #### 60067- 8 ####[facility] LABCLIA [id number] [place], [place] [address]Ljwuzqo [Mass/Vol]7.0 g/dLNormal6.3-8.0[facility] on above:Order Comment: Specimen Type: BLOOD SPECIMENOrdering Facility: [facility] Address:[address] [place], [place] [address]Performed By: #### 65336-1 ####[facility] LABCLIA [id number] [place], [place] [address]Czhsyg [Moles/Vol]138 mmol/L Lfledt692-040ErdtgtzrrOhio State Health System on above:Order Comment: Specimen Type: BLOOD SPECIMENOrdering Facility: [facility] Address:[address] [place], [place] [address]Performed By: #### 01397-2 ####[facility] LABCLIA [id number] [place] [address] Urea nitrogen [Mass/Vol]16 mg/dLNormal7-21[facility] on above:Order Comment: Specimen Type: BLOOD SPECIMENOrdering Facility: [facility] Address:[address] [place], [place] [address]Performed By: #### 18547-1 ####[facility] LABCL[facility] [id number] [place], [place] [address]Azkwyjiy SerPl-mCncon 01-47-5902Bphmyvjo [Mass/Vol] 63.6 ng/tYBsvydi23.7-205.1CTrinity Health System [facility] Campus on above:Order Comment: Specimen Type: BLOOD SPECIMENOrdering Facility: [facility] Address:[address] [place], [place] [address]Performed By: #### 98897- 8, 2284-8, 9, 4 ####[facility] LABCLIA [id number] [place] [address] [place] AMERICAFolate SerPl-mCncon 59-15-6962Cxtajb [Mass/Vol]ng/mLNormal>4.7CTrinity Health System East Campus on above:Order Comment: Specimen Type: BLOOD SPECIMENOrdering Facility: [facility] Address:[address] [place], [place] [address]Result Comment: A result of > 20 ng/mL is not necessarily indicative of a pathologic or treatable condition: it reflects a limitation of the test methodology.Assay reference range: 4.8 to 24.2 ng/mL. Suitable for detection of folate deficiency.Reference:Folate III (Folate III) [package insert V 1.0 Luxembourger]. [facility], [place], [place]: March 2015.Performed By: #### 46087-9, 4-8, 9, 2275-08 ####[facility] LABCLIA [id number] [place] [address] [place] IMMUNOGLOBULINS,IGG,IGA,IGMon 84-32-9619JoL [Mass/Vol]169 mg/tMBugsjy38-730 [facility] on above:Order Comment: Specimen Type: BLOOD SPECIMENOrdering Facility: [facility] Address:[address] [place], [place] [address]Performed By: #### SERIMM ####[facility] LABCLIA [id number] [address] [address] [place] AMERICAIgG [Mass/Vol]596 mg/fKQvs492-4585JsptfrfiwWhite HospitalComformerly [facility] on above:Order Comment: Specimen Type: BLOOD SPECIMENOrdering Facility: [facility] Address:[address] [place], [place] [address]Performed By: #### SERIMM ####[facility] LABCLIA [id number] [place] [address] [place] AMERICAIgM [Mass/Vol]410 mg/dL Ozkz07-141ZkbhivimaWhite HospitalComment on above:Order Comment: Specimen Type: BLOOD SPECIMENOrdering Facility: [facility] Address:[address] [place], [place] [address]Performed By: #### SERIMM ####[facility] LABCLIA [id number] [place] [address] [place] AMERICAIron and Iron binding capacity panelon 36-41-7901Qcyx [Mass/Vol]154 ug/jIUjuqmk24-949SpbudxwwyOhio State Health System on above:Order Comment: Specimen Type: BLOOD SPECIMENOrdering Facility: [facility] Address:[address] [place], [place] [address]Performed By: #### 81026- 8, 2284-8, 2132-9, 2276-4 ####[facility] LABCLIA [id number] [address] [address] [place] AMERICAIron binding capacity [Mass/Vol]363 ug/uEIxodrr662-447JmheufildWhite Hospital Comment on above:Order Comment: Specimen Type: BLOOD SPECIMENOrdering Facility: [facility] Address:[address] [place] [address] Performed By: #### 49133-0, 4-8, 9, 2275-4 ####[facility] LABIA [id number] [place] [id number] [place] AMERICAIron/TIBC [Molar ratio]42.4 %Frkmjk26.0-57.0[facility] on above:Order Comment: Specimen Type: BLOOD SPECIMENOrdering Facility: [facility] Address:[address] [place], [place] [address]Performed By: #### 07438-1, 2283-8, 9, 4 ####[facility] LABIA [id number] [place] [address] [place] AMERICAVit B12 SerPl-ncon 77-37-1367Phvqcmjun (Vitamin B12) [Mass/Vol]775 pg/mIPsyvvs366-1637LrlfwlizzTrinity Health System East Campus on above: Order Comment: Specimen Type: BLOOD SPECIMENOrdering Facility: [facility] Address:[address] [place], [place] [address]Performed By: #### 36489- 8, 2283-8, 9, 4 ####[facility] LABCLIA [id number] [place] [id number] [place] AMERICACNPNon 91-79-7246IVUOQkmefeWhfuuvfio Clinic ClevelandCNPNon 41-50-4452YVJPDtjdfv White HospitalCNPNon 98-94-3611GYRJKvhvenEyjmfwyoz Clinic [place] 25([place])D3 SerPl-mCncon 45-81-749452162018-tnusozleitnlld D3 [Mass/Vol]30.9 ng/mLLow 31.0-80.0[facility] on above:Order Comment: Specimen Type: BLOOD SPECIMENOrdering Facility: [facility] Address:[address] [place], [place] [address]Result Comment: Classification of 25 [place] Vitamin D status:Deficiency/Insufficiency: < or = 30 ng/ml.Sufficiency/Optimal Levels: 31-80 ng/mLToxicity: > 100 ng/mL.Test performed by chemiluminescent immunoassay. Performed By: #### 1989-3 ####[facility] LABCLIA [id number] [place] [id number] [place] 25-hydroxyvitamin D3 [Mass/Vol]on 22-90-4492Guvmiayvvewegm and review of laboratory resultsAbrmalCOhio Valley Surgical HospitalThe reference range interval was based on an analysis of samples from healthy adults and may not pertain to children from 0-18 years old. [facility]-REACTIVE PROTEINon 36-40-6519MFP [Mass/Vol] mg/dLNINF - 0.9 mg/dLEast [facility] panel Auto (Bld)on 10-02-2024 Erythrocyte distribution width (RBC) [Ratio]16.2 %High11.5 - 15.0 %[facility] HospitalHematocrit (Bld) [Volume fraction]41.3 %36.0 - 46.0 %[facility] Hemoglobin (Bld) [Mass/Vol]13.7 g/dL11.5 - 15.5 g/dLDetwiler Memorial Hospital Interpretation and review of laboratory resultsAbnormalCCleveland ClinicH (RBC) [Entitic mass]31.1 pg26.0 - 34.0 pgClevelSt. Gabriel HospitalHC (RBC) [Mass/Vol]33.2 g/dL30.5 - 36.0 g/dLUniversity Hospitals Beachwood Medical CenterV (RBC) [Entitic vol]93.7 fL80.0 - 100.0 fLCtrihealth good samaritan hospital ClinicNucleated RBC (Bld) [#/Vol]NINFClevelUniversity Hospitals Samaritan Medical CenterPlatelet mean volume (Bld) [Entitic vol]10.1 fL9.0 - 12.7 fLCOhio Valley Surgical HospitalPlatelets (Bld) [#/Vol]265 10*3/uLDetwiler Memorial HospitalRBC (Bld) [#/Vol]4.41 10*6/uL3.90 - 5.20 m/uL [facility] Memorial HospitalWBC (Bld) [#/Vol]10.07 10*3/uLWooster Community Hospital Erythrocyte distribution width (RBC) [Ratio]16.2 %High11.5-15.0[facility] on above:Order Comment: Specimen Type: BLOOD SPECIMENOrdering Facility: [facility] Address:[address] [place], [place] [address]Performed By: #### 80969-4 ####[facility] LABIA [id number] [place], [place] [address]Nrvoqfrnwm (Bld) [Volume fraction]41.3 %Bwmnrl25.0-46.0[facility] on above:Order Comment: Specimen Type: BLOOD SPECIMENOrdering Facility: [facility] Address:[address] [place], [place] [address]Performed By: #### 14679- 2 ####[facility] LABIA [id number] [place], [place] [address]Wkpvuhhrjm (Bld) [Mass/Vol]13.7 g/dUQwjrtc87.5-15.5 [facility] on above:Order Comment: Specimen Type: BLOOD SPECIMENOrdering Facility: [facility] Address:[address] [place], [place] [address]Performed By: #### 45984-9 ####[facility] LABIA [id number] [place], [place] [address]KEV (RBC) [Entitic mass]31.1 noXvclhn44.0-34.0[facility] on above: Order Comment: Specimen Type: BLOOD SPECIMENOrdering Facility: [facility] Address:[address] [place], [place] [address]Performed By: #### 69910- 2 ####[facility] LABIA [id number] [place], [place] [address]GTZA (RBC) [Mass/Vol]33.2 g/uYTvmlzv04.5-36.0[facility] on above:Order Comment: Specimen Type: BLOOD SPECIMENOrdering Facility: [facility] Address:[address] [place], [place] [address]Performed By: #### 30105-1 ####[facility] LABCLIA [id number] [place], [place] [address]PLU (RBC) [Entitic vol]93.7 pEVtnsbe05.0-100.0[facility] on above: Order Comment: Specimen Type: BLOOD SPECIMENOrdering Facility: [facility] Address:[address] [place], [place] [address]Performed By: #### 33616- 2 ####[facility] LABCLIA [id number] [place], [place] [address]Bbrktmtcc RBC (Bld) [#/Vol]10*3/uLNormal<0.01[facility] on above:Order Comment: Specimen Type: BLOOD SPECIMENOrdering Facility: [facility] Address:[address] [place], [place] [address]Performed By: #### 28649-7 ####[facility] LABCLIA [id number] [place], [place] [address]Jhzsninn mean volume (Bld) [Entitic vol]10.1 fLNormal9.0-12.7CTrinity Health System East Campus on above:Order Comment: Specimen Type: BLOOD SPECIMENOrdering Facility: [facility] Address:[address] [place] [address] Performed By: #### 07032-9 ####[facility] LABCLIA [id number] [place], [place] [address]Gejqragda (Bld) [#/Vol]265 10*3/gXGpijsv142-895RwtriugclOhio State Health System on above:Order Comment: Specimen Type: BLOOD SPECIMENOrdering Facility: [facility] Address:[address] [place], [place] [address]Performed By: #### 44389-0 ####[facility] LABCLIA [id number] [place], [place] [address]XGH (Bld) [#/Vol]4.41 10*6/uLNormal3.90-5.20[facility] on above:Order Comment: Specimen Type: BLOOD SPECIMENOrdering Facility: [facility] Address:[address] [place], [place] [address]Performed By: #### 61074-4 ####[facility] LABCLIA [id number] [place], [place] [address]QYK (Bld) [#/Vol]10.07 10*3/uLNormal3.70-11.00[facility] on above: Order Comment: Specimen Type: BLOOD SPECIMENOrdering Facility: [facility] Address:[address] [place], [place] [address]Performed By: #### 48040- 2 ####[facility] LABCLIA [id number] [place], [place] [address]ITY SerPl-mCncon 70-81-5225GDL [Mass/Vol]mg/LNormal<0.9 [facility] on above:Order Comment: Specimen Type: BLOOD SPECIMENOrdering Facility: [facility] Address:[address] [place], [place] [address]Performed By: #### 1988-5 ####[facility] LABCLIA [id number] [place] [id number] [place] AMERICACRP [Mass/Vol]on 34-41-0616Zrrhxncrijplmt and review of laboratory resultsNormalCleveland Kettering Health HamiltonComprehensive metabolic 2000 panel Ordered By: Josse Merlos on 62-14-8457Hwjesdg [Mass/Vol]3.9 g/dL3.9 - 4.9 g/dL [facility] ClinicALP [Catalytic activity/Vol]61 U/L34 - 123 U/LCleveland Clinic ALT [Catalytic activity/Vol]41 U/LHigh7 - 38 U/LCleveland ClinicAnion gap [Moles/Vol]14 mmol/L8 - 15 mmol/LCleveland ClinicAST [Catalytic activity/Vol]18 U/L13 - 35 U/LCleveland ClinicBilirubin [Mass/Vol]0.2 mg/dL0.2 - 1.3 mg/dL [facility] ClinicCalcium [Mass/Vol]9.6 mg/dL8.5 - 10.2 mg/dLDetwiler Memorial Hospital Chloride [Moles/Vol]107 mmol/L98 - 107 mmol/LCleveland ClinicCO2 [Moles/Vol]20 mmol/LLow22 - 30 mmol/LCleveland ClinicCreatinine [Mass/Vol]0.59 mg/dL0.58 - 0.96 mg/dLOcean Isle Beach ClinicGFR/1.73 sq M.predicted among non-blacks MDRD (S/P/Bld) [Vol rate/Area]115 mL/min/{1.73_m2}- PINFCleveland ClinicComment on above:Estimated Glomerular Filtration [...] not accurately reflect actual GFR.Glucose [Mass/Vol] 216 mg/sEBalx68 - 99 mg/dLDetwiler Memorial HospitalComment on above:The [place] Diabetes Association (ADA) provides guidance for [...] Standards of Medical Care in Diabetes 2016, [place] Diabetes Association. Diabetes Care. 2016.39(Suppl 1). Interpretation and review of laboratory resultsAbnormalCleveland ClinicPotassium [Moles/Vol]4.1 mmol/L3.7 - 5.1 mmol/LCleveland ClinicProtein [Mass/Vol]6.8 g/dL 6.3 - 8.0 g/dLCleohiohealth doctors hospital ClinicSodium [Moles/Vol]141 mmol/L136 - 144 mmol/L [facility] Memorial HospitalUrea nitrogen [Mass/Vol]19 mg/dL7 - 21 mg/dLAshtabula General HospitalComprehensive metabolic 2000 panelon 95-87-3863Kdcmfvr [Mass/Vol]3.9 g/dLNormal3.9-4.9CTrinity Health System [facility] on above:Order Comment: Specimen Type: BLOOD SPECIMENOrdering Facility: [facility] Address:[address] [place], [place] [address]Performed By: #### 88704- 8 ####[facility] LABCLIA [id number] [place], [place] [address]LHU [Catalytic activity/Vol]61 U/NGcvtcz06-289DayzfvfctOhio State Health System on above:Order Comment: Specimen Type: BLOOD SPECIMENOrdering Facility: [facility] Address:[address] [place], [place] [address]Performed By: #### 41128-4 ####[facility] LABCLIA [id number] [place], [place] [address]FCY [Catalytic activity/Vol]41 U/LHigh7-38[facility] on above:Order Comment: Specimen Type: BLOOD SPECIMENOrdering Facility: [facility] Address:[address] [place], [place] [address]Performed By: #### 22371- 8 ####[facility] LABCLIA [id number] [place], [place] [address]Wpcix gap [Moles/Vol]14 mmol/LNormal8-15[facility] on above:Order Comment: Specimen Type: BLOOD SPECIMENOrdering Facility: [facility] Address:[address] [place], [place] [address]Performed By: #### 11704-8 ####[facility] LABCLIA [id number] [place], [place] [address]EIC [Catalytic activity/Vol]18 U/JRrutho31-44CjhdzfkhdOhio State Health System on above:Order Comment: Specimen Type: BLOOD SPECIMENOrdering Facility: [facility] Address:[address] [place], [place] [address]Performed By: #### 08833-8 ####[facility] LABCLIA [id number] [facility] [place] [address] Bilirubin [Mass/Vol]0.2 mg/dLNormal0.2-1.3CTrinity Health System [facility] Campus on above:Order Comment: Specimen Type: BLOOD SPECIMENOrdering Facility: [facility] Address:[address] [place], [place] [address]Performed By: #### 61913-0 ####[facility] LABCLIA [id number] [facility] [place]ENTERMAGGY[place], [place] [address]Wfstpdv [Mass/Vol]9.6 mg/dLNormal8.5-10.2CTrinity Health System [facility] Campus on above:Order Comment: Specimen Type: BLOOD SPECIMENOrdering Facility: [facility] Address:[address] [place], [place] [address]Performed By: #### 99360-2 ####[facility] LABCLIA [id number] [facility] [place]ENTERMAGGY[place], [place] [address]Bbpwgwom [Moles/Vol]107 mmol/CElbfdx62-914FicpclbrqOhio State Health System on above: Order Comment: Specimen Type: BLOOD SPECIMENOrdering Facility: [facility] Address:[address] [place], [place] [address]Performed By: #### 05561- 8 ####[facility] LABCLIA [id number] [facility] [place], [place] [address]WC5 [Moles/Vol]20 mmol/WWcx23-52OvcnkzlvoOhio State Health System on above:Order Comment: Specimen Type: BLOOD SPECIMENOrdering Facility: [facility] Address:[address] [place], [place] [address]Performed By: #### 92155-3 ####[facility] LABCLIA [id number] [place], [place] [address]Csjxrwenbx [Mass/Vol]0.59 mg/dL Normal0.58-0.96[facility] on above:Order Comment: Specimen Type: BLOOD SPECIMENOrdering Facility: [facility] Address:[address] [place], [place] [address]Performed By: #### 85475-3 ####[facility] LABCLIA [id number] [place], [place] [address]Ksfndabyhc and Glomerular filtration rate.predicted panel (S/P/Bld)115 mL/min/1.73m???Normal>=60[facility] on above:Order Comment: Specimen Type: BLOOD SPECIMENOrdering Facility: [facility] Address:[address] [place], [place] [address]Result Comment: Estimated Glomerular Filtration Rate (eGFR) is [...] not accurately reflect actual GFR.Performed By: #### 33278-6 ####[facility] LABCLIA [id number] [place], [place] [address]Lqegmkx [Mass/Vol]216 mg/oOOhuj99-74EofvvdakaOhio State Health System on above:Order Comment: Specimen Type: BLOOD SPECIMENOrdering Facility: [facility] Address:[address] [place], [place] [address]Result Comment: The [place] Diabetes Association (ADA) provides guidance for [...] Standards of Medical Care in Diabetes 2016, [place] Diabetes Association. Diabetes Care. 2016.39(Suppl 1).Performed By: #### 73952-7 ####[facility] LABCLIA [id number] [place], [place] [address]Sicrxnobu [Moles/Vol]4.1 mmol/LNormal3.7-5.1CTrinity Health System [facility] on above:Order Comment: Specimen Type: BLOOD SPECIMENOrdering Facility: [facility] Address:[address] [place], [place] [address]Performed By: #### 73717-3 ####[facility] LABCLIA [id number] [place], [place] [address]Csrawyl [Mass/Vol]6.8 g/dLNormal6.3-8.0[facility] on above:Order Comment: Specimen Type: BLOOD SPECIMENOrdering Facility: [facility] Address:[address] [place], [place] [address]Performed By: #### 71174- 8 ####[facility] LABCLIA [id number] [place], [place] [address]Mtwayf [Moles/Vol]141 mmol/BIeiixa842-573KttlbnehiOhio State Health System on above:Order Comment: Specimen Type: BLOOD SPECIMENOrdering Facility: [facility] Address:[address] [place], [place] [address]Performed By: #### 73938-8 ####[facility] LABCLIA [id number] [place], [place] [address]Qnaw nitrogen [Mass/Vol]19 mg/dLNormal7-21[facility] on above:Order Comment: Specimen Type: BLOOD SPECIMENOrdering Facility: [facility] Address:[address] [place], [place] [address]Performed By: #### 11968-5 ####[facility] LABCLIA [id number] [place], [place] [address]BNI Westergren method (Bld) [Velocity]on 11-95-1659KYT (Bld) [Velocity]28 mm/hHighDetwiler Memorial HospitalInterpretation and review of laboratory resultsAbnormalCblanchard valley health systemand Kettering Health HamiltonESR (Bld) [Velocity]28 mm/hHigh0-20White HospitalComment on above:Order Comment: Specimen Type: BLOOD SPECIMENOrdering Facility: [facility] Address:[address] [place], [place] [address]Performed By: #### 4537-7 ####[facility] LABCLIA [id number] [place] [address] [place] OF AMERICAVITAMIN D 25 HYDROXYon 235982-chqkyrfrccvswc D3 [Mass/Vol]30.9 ng/mLLow31.0 - 80.0 ng/mLCOhio Valley Surgical HospitalComment on above: Classification of 25 [place] Vitamin D status: Deficiency/Insufficiency: < or = 30 ng/ml. Sufficiency/Optimal Levels: 31-80 ng/mL Toxicity: > 100 ng/mL. Test performed by chemiluminescent immunoassay. DNA EXTRACTION BLOODOrdered By: Dominga Araujo on 65-37-2822YHQYOIZHHBOFZ (NG/UL)189.3 ng/ulDetwiler Memorial HospitalTotal Yield94.65 ugDetwiler Memorial HospitalComformerly [facility] on above:Specimens will be available for 3 years from date of collection. To order testing on this specimen for [facility] patients, please place an [facility] order for DNA and RNA for Clinical Testing (SQNUCADD). To order for patients outside of the [facility] system, please request DNA and RNA for Clinical Testing, order code NUCADD. If additional paperwork is required for testing, please email completed forms to . VOLUME (UL) OF [id number] uLWooster Community HospitalCNOVon 55-40-7953OCMO NormalWhite HospitalDNA EXTRACTION BLOODon 77-79-9557XPXNCTSNDTAMD (NG/UL)189.3 ng/ulNormalCTrinity Health System East Campus on above:Order Comment: Specimen Type: BLOOD SPECIMENOrdering Facility: [facility] Address:[address] [place], [place] [address]Performed By: #### NUCBLD ####[facility] LIMSCLIA [id number] [place] [address] [place] AMERICATOTAL YIELD94.[address] [facility] on above:Order Comment: Specimen Type: BLOOD SPECIMENOrdering Facility: [facility] Address:[address] [place], [place] [address]Result Comment: Specimens will be available for 3 years from date of collection. To order testing on this specimen for [facility] patients, please place an [facility] order for DNA and RNA for Clinical Testing (SQNUCADD). To order for patients outside of the [facility] system, please request DNA and RNA for Clinical Testing, order code NUCADD.If additional paperwork is required for testing,please email completed forms to . Performed By: #### NUCBLD ####[facility] LIMSCLIA [id number] [place] [address] [place] AMERICAVOLUME (UL) OF [id number] [facility] on above:Order Comment: Specimen Type: BLOOD SPECIMENOrdering Facility: [facility] Address:[address] [place], [place] [address]Performed By: #### NUCBLD ####[facility] LIMSCLIA [id number] [place] [address] [place] AMERICACNPNon 26-82-6007BXIYLkymzkQcgltamxaAdena Pike Medical CenterCNPNon 09-13-2024 CNPNNAdena Pike Medical CenterCNOVSPon 45-94-2267HQOXLIZiscwsUlvmddaak Clinic ClevelandCNPNon 40-95-1606IRTKVubpytBfrckjoijAdena Pike Medical Center IMMUNOGLOBULINS,IGG,IGA,IGMon 25-52-8016DjK [Mass/Vol]163 mg/hSQdkqkz92-966 [facility] on above:Order Comment: Specimen Type: BLOOD SPECIMENOrdering Facility: [facility] Address:[address] [place], [place] [address]Performed By: #### SERIMM ####[facility] LABCLIA [id number] [address] [address] [place] AMERICAIgG [Mass/Vol]599 mg/iMGqp062-7190BroqkasddOhio State Health System on above:Order Comment: Specimen Type: BLOOD SPECIMENOrdering Facility: [facility] Address:[address] [place], [place] [address]Performed By: #### SERIMM ####[facility] LABCLIA [id number] [place] [address] [place] AMERICAIgM [Mass/Vol]387 mg/dL Tupq80-274SpdccpxttOhio State Health System on above:Order Comment: Specimen Type: BLOOD SPECIMENOrdering Facility: [facility] Address:[address] [place], [place] [address]Performed By: #### SERIMM ####[facility] LABCLIA [id number] [place] [address] [place] AMERICALaboratory - Chemistry and Chemistry - challengeon 90-89-4108ZxP [Mass/Vol]163 mg/dL70 - 400 mg/dLDetwiler Memorial HospitalIgG [Mass/Vol]599 mg/rBWrm648 - 1600 mg/dLDetwiler Memorial HospitalIgM [Mass/Vol]387 mg/jYRsyy45 - 230 mg/dLDetwiler Memorial HospitalNo Panel Informationon 62-67-2696Btiaiomsalcgqf and review of laboratory resultsAbnormalCBlanchard Valley Health System W Auto Differential panel (Bld)on 84-30-1403Itbokpyva (Bld) [#/Vol]0.06 10*3/uLNormal <0.11CTrinity Health System East Campus on above:Order Comment: Specimen Type: BLOOD SPECIMENOrdering Facility: [facility] Address:[address] [place], [place] [address]Performed By: #### [id number] ####[facility] LABCLIA [id number] [place] [address] Basophils/100 WBC (Bld)0.5 %NormalOhio State Health System on above: Order Comment: Specimen Type: BLOOD SPECIMENOrdering Facility: [facility] Address:[address] [place], [place] [address]Performed By: #### [id number]- [id number] ####[facility] LABIA [id number] [place], [place] [address]Irpmadmfoggn cell count method Nom (Bld)AutoNormal [facility] on above:Order Comment: Specimen Type: BLOOD SPECIMENOrdering Facility: [facility] Address:[address] [place], [place] [address]Performed By: #### [id number] ####[facility] LABIA [id number] [place], [place] [address]Utrnkqajuma (Bld) [#/Vol]0.08 10*3/uLNormal<0.46[facility] on above: Order Comment: Specimen Type: BLOOD SPECIMENOrdering Facility: [facility] Address:[address] [place], [place] [address]Performed By: #### 07785- 8 ####[facility] LABIA [id number] [place], [place] [address]Nnyxbfgrria/100 WBC (Bld)0.6 %NormalOhio State Health System on above:Order Comment: Specimen Type: BLOOD SPECIMENOrdering Facility: [facility] Address:[address] [place], [place] [address]Performed By: #### 95577-8 ####[facility] LABIA [id number] [place], [place] [address]Rohxlayvzjv distribution width (RBC) [Ratio]16.0 %High11.5-15.0[facility] on above:Order Comment: Specimen Type: BLOOD SPECIMENOrdering Facility: [facility] Address:[address] [place], [place] [address]Performed By: #### 01289- 8 ####[facility] [id number] [place], [place] [address]Rirnjumnka (Bld) [Volume fraction]42.9 %Jjwmbq26.0-46.0 [facility] on above:Order Comment: Specimen Type: BLOOD SPECIMENOrdering Facility: [facility] Address:[address] [place], [place] [address]Performed By: #### 26411-9 ####[facility] LABIA [id number] [place], [place] [address]Bajvbbrczo (Bld) [Mass/Vol]13.8 g/bEDlwycm53.5-15.5CTrinity Health System [facility] on above: Order Comment: Specimen Type: BLOOD SPECIMENOrdering Facility: [facility] Address:[address] [place], [place] [address]Performed By: #### 10811- 8 ####[facility] LABIA [id number] [place], [place] [address]Agtobece granulocytes (Bld) [#/Vol]0.23 10*3/uLHigh<0.10 [facility] on above:Order Comment: Specimen Type: BLOOD SPECIMENOrdering Facility: [facility] Address:[address] [place], [place] [address]Performed By: #### 00793-0 ####[facility] LABIA [id number] [place], [place] [address]Ahexeold granulocytes/100 WBC (Bld)1.8 %NormalOhio State Health System on above: Order Comment: Specimen Type: BLOOD SPECIMENOrdering Facility: [facility] Address:[address] [place], [place] [address]Performed By: #### 04524- 8 ####[facility] LABIA [id number] [place], [place] [address]Yojuehwiykc (Bld) [#/Vol]2.07 10*3/uLNormal1.00-4.00 [facility] ClevelandComment on above:Order Comment: Specimen Type: BLOOD SPECIMENOrdering Facility: [facility] Address:[address] [place], [place] [address]Performed By: #### 20210-3 ####[facility] LABCLIA [id number] [place], [place] [address]Dehecxmrckz/100 WBC (Bld)15.8 %NormalOhio State Health System on above:Order Comment: Specimen Type: BLOOD SPECIMENOrdering Facility: [facility] Address:[address] [place], [place] [address]Performed By: #### 42000-6 ####[facility] LABCLIA [id number] [place], [place] [address]XXB (RBC) [Entitic mass]30.2 hqNwaaqm34.0-34.0[facility] on above:Order Comment: Specimen Type: BLOOD SPECIMENOrdering Facility: [facility] Address:[address] [place], [place] [address]Performed By: #### 49816-0 ####[facility] LABCLIA [id number] [place], [place] [address]NLLZ (RBC) [Mass/Vol]32.2 g/rDSwgehs94.5-36.0[facility] on above: Order Comment: Specimen Type: BLOOD SPECIMENOrdering Facility: [facility] Address:[address] [place], [place] [address]Performed By: #### 64482- 8 ####[facility] LABCLIA [id number] [place], [place] [address]JSK (RBC) [Entitic vol]93.9 cDUyrrdt14.0-100.0[facility] on above:Order Comment: Specimen Type: BLOOD SPECIMENOrdering Facility: [facility] Address:[address] [place], [place] [address]Performed By: #### 55429-2 ####[facility] LABCLIA [id number] [place], [place] [address]Otcixxypj (Bld) [#/Vol]0.86 10*3/uLNormal<0.87[facility] on above:Order Comment: Specimen Type: BLOOD SPECIMENOrdering Facility: [facility] Address:[address] [place], [place] [address]Performed By: #### 61795- 8 ####[facility] LABIA [id number] [place], [place] [address]Wcixmaryh/100 WBC (Bld)6.6 %NormalOhio State Health System on above:Order Comment: Specimen Type: BLOOD SPECIMENOrdering Facility: [facility] Address:[address] [place], [place] [address]Performed By: #### 79642-7 ####[facility] LABIA [id number] [place], [place] [address]Lxudrguvurm (Bld) [#/Vol]9.82 10*3/uLHigh1.45-7.50[facility] on above:Order Comment: Specimen Type: BLOOD SPECIMENOrdering Facility: [facility] Address:[address] [place], [place] [address]Performed By: #### 27264-4 ####[facility] LABIA [id number] [place], [place] [address]Rgoukhqrgyb/100 WBC (Bld)74.7 %NormalOhio State Health System on above:Order Comment: Specimen Type: BLOOD SPECIMENOrdering Facility: [facility] Address:[address] [place], [place] [address]Performed By: #### 91811-4 ####[facility] LABIA [id number] [place], [place] [address]Ktljsloox RBC (Bld) [#/Vol] 10*3/uLNormal<0.01[facility] on above:Order Comment: Specimen Type: BLOOD SPECIMENOrdering Facility: [facility] Address:[address] [place], [place] [address]Performed By: #### 18406-0 ####[facility] LABCLIA [id number] [place], [place] [address]Flwqubvia RBC/100 WBC (Bld) [Ratio]0.0 /100 WBCNormal [facility] on above:Order Comment: Specimen Type: BLOOD SPECIMENOrdering Facility: [facility] Address:[address] [place], [place] [address]Performed By: #### 06677-0 ####[facility] LABCLIA [id number] [place], [place] [address]Reauvuba mean volume (Bld) [Entitic vol]9.5 fLNormal9.0-12.7CTrinity Health System [facility] Campus on above:Order Comment: Specimen Type: BLOOD SPECIMENOrdering Facility: [facility] Address:[address] [place] [address] Performed By: #### 56376-5 ####[facility] LABCLIA [id number] [place], [place] [address]Cdxgvafil (Bld) [#/Vol]291 10*3/kWZzynfd656-352QsgsrhvztOhio State Health System on above:Order Comment: Specimen Type: BLOOD SPECIMENOrdering Facility: [facility] Address:[address] [place], [place] [address]Performed By: #### 09880-7 ####[facility] LABCLIA [id number] [place], [place] [address]BQX (Bld) [#/Vol]4.57 10*6/uLNormal3.90-5.20[facility] on above:Order Comment: Specimen Type: BLOOD SPECIMENOrdering Facility: [facility] Address:[address] [place], [place] [address]Performed By: #### 02015-1 ####[facility] LABCLIA [id number] [place], [place] [address]RFL (Bld) [#/Vol]13.12 10*3/uLHigh3.70-11.00[facility] on above: Order Comment: Specimen Type: BLOOD SPECIMENOrdering Facility: [facility] Address:[address] [place], [place] [address]Performed By: #### 31957- 8 ####[facility] LABCLIA [id number] [place], [place] [address]Jhhoaaycrpulr metabolic 2000 panelon 50-36-3470Nowpojf [Mass/Vol]4.2 g/dLNormal3.9-4.9CTrinity Health System [facility] on above:Order Comment: Specimen Type: BLOOD SPECIMENOrdering Facility: [facility] Address:[address] [place], [place] [address]Performed By: #### 97919- 8 ####[facility] LABIA [id number] [place], [place] [address]KCV [Catalytic activity/Vol]69 U/DSaaoze03-059QtwtkecxhOhio State Health System on above:Order Comment: Specimen Type: BLOOD SPECIMENOrdering Facility: [facility] Address:[address] [place], [place] [address]Performed By: #### 29652-7 ####[facility] LABCLIA [id number] [place], [place] [address]GOR [Catalytic activity/Vol]38 U/LNormal7-38[facility] on above:Order Comment: Specimen Type: BLOOD SPECIMENOrdering Facility: [facility] Address:[address] [place], [place] [address]Performed By: #### 61061- 8 ####[facility] LABCLIA [id number] [place], [place] [address]Soryu gap [Moles/Vol]12 mmol/LNormal8-15[facility] on above:Order Comment: Specimen Type: BLOOD SPECIMENOrdering Facility: [facility] Address:[address] [place], [place] [address]Performed By: #### 07868-4 ####[facility] LABCLIA [id number] [place], [place] [address]QNM [Catalytic activity/Vol]15 U/RPnyxow11-86OhkedxwcfOhio State Health System on above:Order Comment: Specimen Type: BLOOD SPECIMENOrdering Facility: [facility] Address:[address] [place], [place] [address]Performed By: #### 73711-1 ####[facility] LABCLIA [id number] [place] [address] Bilirubin [Mass/Vol]0.2 mg/dLNormal0.2-1.3CTrinity Health System [facility] on above:Order Comment: Specimen Type: BLOOD SPECIMENOrdering Facility: [facility] Address:[address] [place], [place] [address]Performed By: #### 98710-0 ####[facility] LABCLIA [id number] [place], [place] [address]Llmzovg [Mass/Vol]10.3 mg/dLHigh8.5-10.2CTrinity Health [facility] on above:Order Comment: Specimen Type: BLOOD SPECIMENOrdering Facility: [facility] Address:[address] [place], [place] [address]Performed By: #### 74749-4 ####[facility] LABCLIA [id number] [place], [place] [address]Ouswetla [Moles/Vol]101 mmol/BXblfpm75-841VmubteizxOhio State Health System on above: Order Comment: Specimen Type: BLOOD SPECIMENOrdering Facility: [facility] Address:[address] [place], [place] [address]Performed By: #### 17432- 8 ####[facility] LABCLIA [id number] [facility] [place], [place] [address]SV3 [Moles/Vol]26 mmol/QBfaunx73-02EjnlmpcluOhio State Health System on above:Order Comment: Specimen Type: BLOOD SPECIMENOrdering Facility: [facility] Address:[address] [place], [place] [address]Performed By: #### 70910-4 ####[facility] LABCLIA [id number] [place], [place] [address]Rxxqjqkjcw [Mass/Vol]0.64 mg/dL Normal0.58-0.96[facility] on above:Order Comment: Specimen Type: BLOOD SPECIMENOrdering Facility: [facility] Address:[address] [place], [place] [address]Performed By: #### 40445-7 ####[facility] LABCLIA [id number] [place], [place] [address]Sbtvhvmqkp and Glomerular filtration rate.predicted panel (S/P/Bld)113 mL/min/1.73m???Normal>=60[facility] on above:Order Comment: Specimen Type: BLOOD SPECIMENOrdering Facility: [facility] Address:[address] [place], [place] [address]Result Comment: Estimated Glomerular Filtration Rate (eGFR) is [...] not accurately reflect actual GFR.Performed By: #### 41827-1 ####[facility] LABCLIA [id number] [place], [place] [address]Ekfxdrd [Mass/Vol]139 mg/yVDyfq78-42AupqaiebfOhio State Health System on above:Order Comment: Specimen Type: BLOOD SPECIMENOrdering Facility: [facility] Address:[address] [place] [address]Orywyn Comment: The [place] Diabetes Association (ADA) provides guidance for [...] Standards of Medical Care in Diabetes 2016, [place] [employer]. Diabetes Care. 2016.39(Suppl 1).Performed By: #### 30091-4 ####[facility] LABCLIA [id number] [place], [place] [address]Fxiszdtbs [Moles/Vol]4.4 mmol/LNormal3.7-5.1CTrinity Health System [facility] on above:Order Comment: Specimen Type: BLOOD SPECIMENOrdering Facility: [facility] Address:[address] [place], [place] [address]Performed By: #### 85173-0 ####[facility] LABCLIA [id number] [place], [place] [address]Xpnsxyn [Mass/Vol]7.1 g/dLNormal6.3-8.0[facility] on above:Order Comment: Specimen Type: BLOOD SPECIMENOrdering Facility: [facility] Address:[address] [place], [place] [address]Performed By: #### 47734- 8 ####[facility] LABCLIA [id number] [place], [place] [address]Rbghyk [Moles/Vol]139 mmol/IWfsdjz740-846PmlegvoaoOhio State Health System on above:Order Comment: Specimen Type: BLOOD SPECIMENOrdering Facility: [facility] Address:[address] [place], [place] [address]Performed By: #### 22771-2 ####[facility] LABCLIA [id number] [place], [place] [address]Gjli nitrogen [Mass/Vol]18 mg/dLNormal7-21[facility] on above:Order Comment: Specimen Type: BLOOD SPECIMENOrdering Facility: [facility] Address:[address] [place], [place] [address]Performed By: #### 06234-8 ####[facility] LABCLIA [id number] [place], [place] [address]Rneqwday SerPl-mCncon 07-31-0031Tmzhglqd [Mass/Vol]43.1 ng/yASlgvmm61.7-205.1CTrinity [facility] on above:Order Comment: Specimen Type: BLOOD SPECIMENOrdering Facility: [facility] Address:[address] [place], [place] [address]Performed By: #### 2132-9, 2284-8, 2276-4, 40588-1 ####[facility] LABCLIA [id number] [place] [address] [place] AMERICAFolate SerPl-mCncon 22-97-7175Rjvepo [Mass/Vol]ng/mLNormal>4.7CTrinity Health [facility] on above:Order Comment: Specimen Type: BLOOD SPECIMENOrdering Facility: [facility] Address:[address] [place], [place] [address]Result Comment: A result of > 20 ng/mL is not necessarily indicative of a pathologic or treatable condition: it reflects a limitation of the test methodology.Assay reference range: 4.8 to 24.2 ng/mL. Suitable for detection of folate deficiency.Reference:Folate III (Folate III) [package insert V 1.0 Luxembourger]. [facility], [place], [place]: March 2015.Performed By: #### 2132-9, 2284-8, 2276-4, 11715-0 ####[facility] LABCLIA [id number] [place] [address] [place] AMERICAIgG SerPl-mCnc on 80-61-8253ZoD [Mass/Vol]729 mg/gTUfngxe516-7682GxfxtmemxWhite Hospital Comment on above:Order Comment: Specimen Type: BLOOD SPECIMENOrdering Facility: [facility] Address:[address] [place] [address] Performed By: #### 2465-3 ####[facility] LABIA [id number] [place] [address] [place] [employer] binding capacity panelon 94-94-2036Vufo [Mass/Vol]80 ug/dLNormal 41-186[facility] on above:Order Comment: Specimen Type: BLOOD SPECIMENOrdering Facility: [facility] Address:[address] [place], [place] [address]Performed By: #### 2132-9, 2284-8, 2276-4, 69717-8 ####[facility] LABIA [id number] [address] STATES OF AMERICAIron binding capacity [Mass/Vol] 416 ug/dIMojl149-548NuafgxduwOhio State Health System on above:Order Comment: Specimen Type: BLOOD SPECIMENOrdering Facility: [facility] Address:[address] [place], [place] [address]Performed By: #### 2132-9, 2284-8, 2276-4, 98512-9 ####[facility] LABIA [id number] [place] [address] [place] AMERICAIron/TIBC [Molar ratio]19.2 %Wfeetb89.0-57.0[facility] on above:Order Comment: Specimen Type: BLOOD SPECIMENOrdering Facility: [facility] Address:[address] [place], [place] [address]Performed By: #### 2132- 9, 2284-8, 2276-4, 75765-7 ####[facility] LABCLIA [id number] [place] [address] [place] AMERICAVit B12 SerPl-mCncon 91-40-3259Kfyaonwpa (Vitamin B12) [Mass/Vol]555 pg/iYLqnhfm559-0505 [facility] on above:Order Comment: Specimen Type: BLOOD SPECIMENOrdering Facility: [facility] Address:[address] [place], [place] [address]Performed By: #### 2132-9, 2284-8, 2276-4, 83585-8 ####[facility] LABCLIA [id number] [place] [address] [place] AMERICACNPNon 88-78-8142GLXXFczspg [facility] Thyroid glandon 76-99-1024[place] [address] Ultrasound Report Signed Patient: ARIADNA HALEY MR#: [id number] : 1980 Acct:[id number] Age/Sex: 43 / F ADM Date: 08/24/24 Loc: US Attending Dr: Gordo Barfield M.D. Ordering Physician: Gorod Barfield M.D. Date of Service: 08/24/24 Procedure(s): US thyroid Accession Number(s): [id number] cc: GAY DE LA TORRE ; Gordo Barfield M.D. [address] [address] Patient Name: ARIADNA HALEY MRN: [id number] date: 1980 Sex: F Assigned Patient Location: US Current Patient Location: US Accession/Order Number: [id number] Exam Date: 08/24/2024 09:09 Report Date: 08/24/2024 [...] this was thought to be cystic. The silk brusher today considered it solid and it was given TI-RADS 4 classification. No internal color flow is shown. Size has not significantly changed when measuring in a comparable manner. No other nodularity is seen. US/US thyroid IMPRESSION: SIMILAR SMALL LEFT THYROID NODULE. FOLLOW-UP IN ONE YEAR IS SUGGESTED. Impression dictated by: Simin Nelson M.D.08/24/2024 9:22 AM Dictation Location: [place] [address] Electronically authenticated by: [id number] Y Date: 08/24/2024 09:22 Dictated By: Simin Nelson M.D. Signed By: 08/24/24923 DD/ 1 TD/TT: Admin Assistant:DARLENEHRadiology, Radiologist, - 08/24/2024 [place] [address] Ultrasound Report Signed Patient: ARIADNA HALEY MR#: [id number] : 1980 Acct:[id number] Age/Sex: 43 / F ADM Date: 08/24/24 Loc: US Attending Dr: Gordo Barfield M.D. Ordering Physician: Gordo Barfield M.D. Date of Service: 08/24/24 Procedure(s): US thyroid Accession Number(s): [id number] cc: GAY DE LA TORRE ; Gordo Barfield M.D. [place] [address] Patient Name: ARIADNA HALEY MRN: [id number] date: 1980 Sex: F Assigned Patient Location: US Current Patient Location: US Accession/Order Number: [id number] Exam Date: 08/24/2024 09:09 Report Date: 08/24/2024 [...] this was thought to be cystic. The silk brusher today considered it solid and it was given TI-RADS 4 classification. No internal color flow is shown. Size has not significantly changed when measuring in a comparable manner. No other nodularity is seen. US/US thyroid IMPRESSION: SIMILAR SMALL LEFT THYROID NODULE. FOLLOW-UP IN ONE YEAR IS SUGGESTED. Impression dictated by: Simin Nelson M.D.08/24/2024 9:22 AM Dictation Location: [place] [address] Electronically authenticated by: [id number] Y Date: 08/24/2024 09:22 Dictated By: Simin Nelson M.D. Signed By: 08/24/24923 DD/ 1 TD/TT: Admin Assistant: MABLE HealthcareRadiology Study observation (narrative)NOMLucinda HealthcareUS Thyroid glandOrdered By: Radiologist Radiology on 92-69-3190CTZA [employer] Work Phone: cNPNon 33-48-9941JBMCJmxtcbRifvnoirsAdena [facility] HCG ( test) [place].rapid Ql (U)Ordered By: Adolfo Kang on 51-18-4623OXD ( test) Ql (U)Urine human chorionic gonadotropin (hCG) detection by immunoassayThe Bellevue HospitalHCG,Urineon 07-42-9019Eako HCG ( test) Ql (U)NegativeNoMission Family Health Center Physician GroupComment on above:Result Comment: PERFORMED BY: [address] [address] PATHOLOGIST [employer]ER HAYDEN LLAMAS M.D.Performed By: #### UHCG #### [place] [address] USACNOVon 96-01-5049JUZYOxajnsXptgggeai Clinic ClevelandCNPN on 73-86-1938WTRTLqeaxpBzjwhpblf Clinic Xiewxwvkh19([place])D3 SerPl-mCncon 751428-pforlmwzzfghlm D3 [Mass/Vol]28.5 ng/mLLow31.0-80.0[facility] on above:Order Comment: Specimen Type: BLOOD SPECIMENOrdering Facility: [facility] Address:[address] [place], [place] [address]Result Comment: Classification of 25 [place] Vitamin D status:Deficiency/Insufficiency: < or = 30 ng/ml.Sufficiency/Optimal Levels: 31- 80 ng/mLToxicity: > 100 ng/mL.Test performed by chemiluminescent immunoassay. Performed By: #### 1989-3 ####[facility] LABCLIA [id number] [place] [address] [place] CBC panel Auto (Bld)on 83-42-1550Cvfxqrurrbq distribution width (RBC) [Ratio] 14.3 %Sqspsk33.5-15.0[facility] on above:Order Comment: Specimen Type: BLOOD SPECIMENOrdering Facility: [facility] Address:[address] [place], [place] [address]Performed By: #### 90310-8 ####[facility] LABIA [id number] [place] [address] [place] AMERICAHematocrit (Bld) [Volume fraction]41.3 %Oujrlf50.0-46.0 [facility] on above:Order Comment: Specimen Type: BLOOD SPECIMENOrdering Facility: [facility] Address:[address] [place], [place] [address]Performed By: #### 89780-9 ####[facility] LABIA [id number] [place] [address] [place] AMERICAHemoglobin (Bld) [Mass/Vol]13.5 g/xJLcbpzp98.5-15.5CTrinity [facility] on above:Order Comment: Specimen Type: BLOOD SPECIMENOrdering Facility: [facility] Address:[address] [place], [place] [address]Performed By: #### 35943-1 ####[facility] LABCLIA [id number] [place] [address] [facility] (RBC) [Entitic mass]30.4 vyNxivol20.0-34.0[facility] on above:Order Comment: Specimen Type: BLOOD SPECIMENOrdering Facility: [facility] Address:[address] [place], [place] [address]Performed By: #### 27861-3 ####[facility] LABIA [id number] [place] [address]53 [facility] (RBC) [Mass/Vol]32.7 g/rMClnsus43.5-36.0[facility] on above: Order Comment: Specimen Type: BLOOD SPECIMENOrdering Facility: [facility] Address:[address] [place], [place] [address]Performed By: #### 52579- 2 ####[facility] LABIA [id number] [address] (RBC) [Entitic vol]93.0 qRBdtgza83.0-100.0[facility] on above:Order Comment: Specimen Type: BLOOD SPECIMENOrdering Facility: [facility] Address:[address] [place], [place] [address]Performed By: #### 44747-8 ####[facility] LABIA [id number] [place] [address] [facility]LL CAMPUSucleated RBC (Bld) [#/Vol]10*3/uL Normal<0.01[facility] on above:Order Comment: Specimen Type: BLOOD SPECIMENOrdering Facility: [facility] Address:[address] [place], [place] [address]Performed By: #### 03029-2 ####[facility] LABIA [id number] [place] [address] [facility] Platelet mean volume (Bld) [Entitic vol]9.8 fLNormal9.0-12.7CTrinity [facility] on above:Order Comment: Specimen Type: BLOOD SPECIMENOrdering Facility: [facility] Address:[address] [place], [place] [address]Performed By: #### 60094-5 ####[facility] LABCLIA [id number] [place] [address] [facility]ITALPlatelets (Bld) [#/Vol]341 10*3/uL [id number] State Health System on above:Order Comment: Specimen Type: BLOOD SPECIMENOrdering Facility: [facility] Address:[address] [place], [place] [address]Performed By: #### 09336-7 ####[facility] LABIA [id number] [place] [address] [facility]ITALRB (Bld) [#/Vol]4.44 10*6/uLNormal3.90-5.20[facility] on above:Order Comment: Specimen Type: BLOOD SPECIMENOrdering Facility: [facility] Address:[address] [place], [place] [address]Performed By: #### 48625-8 ####[facility] LABIA [id number] [place] [id number] [facility]ITALWBC (Bld) [#/Vol]12.66 10*3/uLHigh3.70-11.00[facility] on above:Order Comment: Specimen Type: BLOOD SPECIMENOrdering Facility: [facility] Address:[address] [place], [place] [address]Performed By: #### 84242-3 ####[facility] LABIA [id number] [place] [id number] [facility]ITALCR SerPl-mCncon [id number] [Mass/Vol]0.1 mg/dLNormal<0.9CTrinity [facility] on above:Order Comment: Specimen Type: BLOOD SPECIMENOrdering Facility: [facility] Address:[address] [place], [place] [address] [id number] By: #### 38330-2, 1987-09 ####[facility] LABCLIA [id number] [place] [address] [place] OF AMERICAComprehensive metabolic 2000 panelon [id number] [Mass/Vol]4.0 g/dLNormal3.9-4.9CTr[facility] on above:Order Comment: Specimen Type: BLOOD SPECIMENOrdering Facility: [facility] Address:[address] [place], [place] [address]Performed By: #### 15512-6, 1987-09 ####[facility] LABIA [id number] [place] [address] [place] AMERICAALP [Catalytic activity/Vol]52 U/JQakyje99-056WxqxhdutjOhio State Health System on above:Order Comment: Specimen Type: BLOOD SPECIMENOrdering Facility: [facility] Address:[address] [place], [place] [address]Performed By: #### 71118- 8, 1987-09 ####[facility] LABIA [id number] [place] [address] [place] AMERICAALT [Catalytic activity/Vol]26 U/LNormal7-38[facility] on above:Order Comment: Specimen Type: BLOOD SPECIMENOrdering Facility: [facility] Address:[address] [place], [place] [address]Performed By: #### 31329-3, 1987-09 ####[facility] LABIA [id number] [place] [address] [place] AMERICAAnion gap [Moles/Vol]10 mmol/LNormal8-15[facility] on above:Order Comment: Specimen Type: BLOOD SPECIMENOrdering Facility: [facility] Address:[address] [place], [place] [address]l [place], [place] [address]Performed By: #### 43568- 8, 1987-09 ####[facility] LABIA [id number] [place] [address] [place] AMERICAAST [Catalytic activity/Vol]12 U/OUil74-87CdxomtuphOhio State Health System on above:Order Comment: Specimen Type: BLOOD SPECIMENOrdering Facility: [facility] Address:[address] [place], [place] [address]Performed By: #### 38157-7, 1987-09 ####[facility] LABCLIA [id number] [place] [address] [place] AMERICABilirubin [Mass/Vol]0.3 mg/dLNormal0.2-1.3CTrinity [facility] on above:Order Comment: Specimen Type: BLOOD SPECIMENOrdering Facility: [facility] Address:[address] [place], [place] [address]Performed By: #### 72010- 8, 1987-09 ####[facility] LABIA [id number] [place] [address] [place] AMERICACalcium [Mass/Vol]9.5 mg/dLNormal8.5-10.2CTrinity Health System [facility] on above:Order Comment: Specimen Type: BLOOD SPECIMENOrdering Facility: [facility] Address:[address] [place], [place] [address]Performed By: #### 88105-0, 1987-09 ####[facility] LABCLIA [id number] [place] [address] [place] AMERICAChloride [Moles/Vol]103 mmol/DXsemxf23-799HxznkytoeOhio State Health System on above: Order Comment: Specimen Type: BLOOD SPECIMENOrdering Facility: [facility] Address:[address] [place], [place] [address]Performed By: #### 94033- 8, 1987-09 ####[facility] LABIA [id number] [place] [address] [place] AMERICACO2 [Moles/Vol]27 mmol/GBqdffd95-36OczcaudcaOhio State Health System on above:Order Comment: Specimen Type: BLOOD SPECIMENOrdering Facility: [facility] Address:[address] [place], [place] [address]Performed By: #### 97213-3, 1987-09 ####[facility] LABIA [id number] [place] [address] [place] AMERICACreatinine [Mass/Vol]0.78 mg/dLNormal0.58-0.96White HospitalComment on above:Order Comment: Specimen Type: BLOOD SPECIMENOrdering Facility: [facility] Address:[address] [place], [place] [address]Performed By: #### 95894-3, 1987-09 ####[facility] LABIA [id number] [place] [address] [place] AMERICACreatinine and Glomerular filtration rate.predicted panel (S/P/Bld)97 mL/min/1.73m???Normal>=60[facility] on above: Order Comment: Specimen Type: BLOOD SPECIMENOrdering Facility: [facility] Address:[address] [place], [place] [address]Result Comment: Estimated Glomerular Filtration Rate (eGFR) is [...] not accurately reflect actual GFR.Performed By: #### 51743-3, 1987-09 ####[facility] LABIA [id number] [place] [address] [place] AMERICAGlucose [Mass/Vol]116 mg/fUCkdx67-05UjbejvlcgWhite Hospital Comment on above:Order Comment: Specimen Type: BLOOD SPECIMENOrdering Facility: [facility] Address:[address] [place], [place] [address]Result Comment: The [place] Diabetes Association (ADA) provides guidance for [...] Standards of Medical Care in Diabetes 2016, [place] [employer]. Diabetes Care. 2016.39(Suppl 1).Performed By: #### 28610-8, 1987-09 ####[facility] LABCLIA [id number] [place] [address] [place] AMERICAPotassium [Moles/Vol]3.8 mmol/LNormal3.7-5.1CTrinity Health System [facility] on above: Order Comment: Specimen Type: BLOOD SPECIMENOrdering Facility: [facility] Address:[address] [place], [place] [address]Performed By: #### 66378 8, 1987-09 ####[facility] LABIA [id number] [place] [address] [place] AMERICAProtein [Mass/Vol]7.6 g/dLNormal6.3-8.0[facility] on above:Order Comment: Specimen Type: BLOOD SPECIMENOrdering Facility: [facility] Address:[address] [place], [place] [address]Performed By: #### 71863-6, 1987-09 ####[facility] LABIA [id number] [place] [address] [place] AMERICASodium [Moles/Vol]140 mmol/YVqimnc484-675OxswykuqhOhio State Health System on above:Order Comment: Specimen Type: BLOOD SPECIMENOrdering Facility: [facility] Address:[address] [place], [place] [address]Performed By: #### 52883-6, 1987-09 ####[facility] LABCLIA [id number] [place] [address] [place] AMERICAUrea nitrogen [Mass/Vol]18 mg/dLNormal7-21[facility] on above:Order Comment: Specimen Type: BLOOD SPECIMENOrdering Facility: [facility] Address:[address] [place], [place] [address]Performed By: #### 65394-5, 1987-09 ####[facility] LABCLIA [id number] [place] [address] [place] AMERICAESR Westergren method (Bld) [Velocity]on 46-99-5908KNJ (Bld) [Velocity]28 mm/hHigh0-20[facility] on above:Order Comment: Specimen Type: BLOOD SPECIMENOrdering Facility: [facility] Address:[address] [place], [place] [address]Performed By: #### 4537-7 ####[facility] LABCLIA [id number] [address] [place] CNPNon 81-58-3733TYEIFxyflyTpzkltcns Clinic ClevelandMM TOMOSYNTHESIS DIAGNOSTIC LTon 31-86-3762[place]Mil[place], [place] [address] Mammography Report Signed Patient: ARIADNA HALEY MR#: [id number] : 1980 Acct:[id number] Age/Sex: 43 / F ADM Date: 06/14/24 Loc: MAMMO Attending Dr: Oly Plascencia Ordering Physician: Oly Plascencia Results: Date of Service: 06/14/24 Follow Up: Procedure(s): MM tomosynthesis diagnostic LT Accession Number(s): [id number] cc: Oly Plascencia; GAY DE LA TORRE Patient Name: ARIADNA HALEY MR#: [id number] : 1980 Exam Date: 06/14/2024 Ordering Doctor: KELVIN Plascencia . RADIOLOGY REPORT PROCEDURE: MM TOMOSYNTHESIS DIAGNOSTIC LT COMPARISON: US BREAST LT LIMITED, 06/14/2024. MM TOMOSYNTHESIS DIAGNOSTIC BI, 04/06/2024. MM TOMOSYNTHESIS SCREENING BI, 09/23/2023. MG MAMM SCREEN 3D SELENE CAD, 09/01/2022. INDICATIONS: Left Axilla Nodule Calculator [...] LUMP SHOULD BE BIOPSIED. Dictated by: Sayda Ann M.D. on 06/14/2024 at 16:11 Approved by: Sayda Ann M.D. on 06/14/2024 at 16:14 Dictated By: Sayda Ann M.D. Signed By: 06/14/24 1615 DD/ 1614 TD/TT: Admin Assistant:TBHRadiology, Radiologist, - 06/14/2024 [place] [address] Mammography Report Signed Patient: ARIADNA HALEY MR#: [id number] : 1980 Acct:[id number] Age/Sex: 43 / F ADM Date: 06/14/24 Loc: MAMMO Attending Dr: Oly Plascencia Ordering Physician: Oly Plascencia Results: Date of Service: 06/14/24 Follow Up: Procedure(s): MM tomosynthesis diagnostic LT Accession Number(s): [id number] cc: Oly Plascencia; GAY DE LA TORRE Patient Name: ARIADNA HALEY MR#: [id number] : 1980 Exam Date: 06/14/2024 Ordering Doctor: KELVIN Plascencia . RADIOLOGY REPORT PROCEDURE: MM TOMOSYNTHESIS DIAGNOSTIC LT COMPARISON: US BREAST LT LIMITED, 06/14/2024. MM TOMOSYNTHESIS DIAGNOSTIC BI, 04/06/2024. MM TOMOSYNTHESIS SCREENING BI, 09/23/2023. MG MAMM SCREEN 3D SELENE CAD, 09/01/2022. INDICATIONS: Left Axilla Nodule Calculator [...] LUMP SHOULD BE BIOPSIED. Dictated by: Sayda Ann M.D. on 06/14/2024 at 16:11 Approved by: Sayda Ann M.D. on 06/14/2024 at 16:14 Dictated By: Sayda Ann M.D. Signed By: 06/14/241614 DD/ 13 TD/TT: Admin Assistant: MABLE HealthcareRadiology Study observation (narrative)[facility]ARank[facility] TOMOSYNTHESIS DIAGNOSTIC LTOrdered By: Radiologist Radiology on 64-06-9741NNJA [facility] Work Phone: us BREAST LT LIMITEDon 85-14-8959Aak[place] [address] Ultrasound Report Signed Patient: ARIADNA HALEY MR#: [id number] : 1980 Acct:[id number] Age/Sex: 43 / F ADM Date: 06/14/24 Loc: MAMMO Attending Dr: Oly Plascencia Ordering Physician: Oly Plascencia Date of Service: 06/14/24 Procedure(s): US breast LT limited Accession Number(s): [id number] cc: Oly Plascencia; GAY DE LA TORRE Patient Name: ARIADNA HALEY MR#: [id number] : 1980 Exam Date: 06/14/2024 Ordering Doctor: [...] LUMP SHOULD BE BIOPSIED. Dictated by: Sayda Ann M.D. on 06/14/2024 at 15:01 Approved by: Sayda Ann M.D. on 06/14/2024 at 15:04 Dictated By: Sayda Ann M.D. Signed By: 06/14/24 1505 DD/ 1504 TD/TT: Admin Assistant:TBHRadiology, Radiologist, - 06/14/[address] [address] Ultrasound Report Signed Patient: ARIADNA HALEY MR#: [id number] : 1980 Acct:[id number] Age/Sex: 43 / F ADM Date: 06/14/24 Loc: MAMMO Attending Dr: Oly Plascencia Ordering Physician: Oly Plascencia Date of Service: 06/14/24 Procedure(s): US breast LT limited Accession Number(s): [id number] cc: Oly Plascencia; GAY DE LA TORRE Patient Name: ARIADNA HALEY MR#: [id number] : 1980 Exam Date: 06/14/2024 Ordering Doctor: [...] LUMP SHOULD BE BIOPSIED. Dictated by: Sayda Ann M.D. on 06/14/2024 at 15:01 Approved by: Sayda Ann M.D. on 06/14/2024 at 15:04 Dictated By: Sayda Ann M.D. Signed By: 06/14/24 1505 DD/ 1504 TD/TT: Admin Assistant: MABLE HealthcareRadiology Study observation (narrative)NOMS HealthcareUS BREAST LT LIMITEDOrdered By: Radiologist Radiology on 74-01-2403UDIU [employer] Work Phone: [employer] 31-63-8338HOHNOF [facility] W Auto Differential panel (Bld)on 64-25-8588Mgdiygipr (Bld) [#/Vol]0.10 10*3/uLNINFDetwiler Memorial HospitalBasophils/100 WBC (Bld)0.7 %[facility] Memorial HospitalDifferential cell count method Nom (Bld)AutoCleveland ClinicEosinophils (Bld) [#/Vol]0.15 10*3/uLNINFDetwiler Memorial HospitalEosinophils/100 WBC (Bld)1.1 % [facility] Memorial HospitalErythrocyte distribution width (RBC) [Ratio]14.2 %11.5 - 15.0 % [facility] HospitalHematocrit (Bld) [Volume fraction]39.0 %36.0 - 46.0 %[facility] Memorial HospitalHemoglobin (Bld) [Mass/Vol]13.0 g/dL11.5 - 15.5 g/dLDetwiler Memorial Hospital Immature granulocytes (Bld) [#/Vol]0.21 10*3/uLHighNINFDetwiler Memorial HospitalImmature granulocytes/100 WBC (Bld)1.5 %[facility] Memorial HospitalInterpretation and review of laboratory resultsAbnormalCleveland Tyler HospitalLymphocytes (Bld) [#/Vol]2.16 10*3/uL [facility] Memorial HospitalLymphocytes/100 WBC (Bld)15.4 %[facility] Medical CenterH (RBC) [Entitic mass]30.5 pg26.0 - 34.0 pgClevelSt. Gabriel HospitalHC (RBC) [Mass/Vol]33.3 g/dL30.5 - 36.0 g/dLUniversity Hospitals Beachwood Medical CenterV (RBC) [Entitic vol]91.5 fL80.0 - 100.0 fLClevelUniversity Hospitals Samaritan Medical CenterMonocytes (Bld) [#/Vol]0.79 10*3/uLNINFDetwiler Memorial Hospital Monocytes/100 WBC (Bld)5.6 %[facility] Memorial HospitalNeutrophils (Bld) [#/Vol]10.59 10*3/uLHighDetwiler Memorial HospitalNeutrophils/100 WBC (Bld)75.7 %[facility] Nucleated RBC (Bld) [#/Vol]NINFCleveland ClinicNucleated RBC/100 WBC (Bld) [Ratio]0.0 %/100 WBCDetwiler Memorial HospitalPlatelet mean volume (Bld) [Entitic vol]9.9 fL9.0 - 12.7 fLClevelnovant health/nhrmc ClinicPlatelets (Bld) [#/Vol]327 10*3/uLCleohiohealth doctors hospital ClinicRBC (Bld) [#/Vol]4.26 10*6/uL3.90 - 5.20 m/[facility] Memorial HospitalWBC (Bld) [#/Vol]14.00 10*3/uLHighWooster Community HospitalBasophils (Bld) [#/Vol] 0.10 10*3/uLNormal<0.11CTrinity Health System [facility] Campus on above:Order Comment: Specimen Type: BLOOD SPECIMENOrdering Facility: [facility] Address:[address] [place], [place] [address]Performed By: #### 75614-3 ####[facility] LABCLIA [id number] [place], [place] [address]Qcswbnmuv/100 WBC (Bld)0.7 %[facility] on above:Order Comment: Specimen Type: BLOOD SPECIMENOrdering Facility: [facility] Address:[address] [place], [place] [address]Performed By: #### 55628-6 ####[facility] LABCLIA [id number] [place], [place] [address]Zukfdywczbgl cell count method Nom (Bld)AutoNormalCTrinity Health System East Campus on above:Order Comment: Specimen Type: BLOOD SPECIMENOrdering Facility: [facility] Address:[address] [place], [place] [address]Performed By: #### 77706-5 ####[facility] LABCLIA [id number] [place], [place] [address]Hvlqcupbpze (Bld) [#/Vol]0.15 10*3/uLNormal<0.46[facility] on above:Order Comment: Specimen Type: BLOOD SPECIMENOrdering Facility: [facility] Address:[address] [place], [place] [address]Performed By: #### 17134-6 ####[facility] LABCLIA [id number] [place], [place] [address]Tyfvcyhdamq/100 WBC (Bld)1.1 %NormalOhio State Health System on above:Order Comment: Specimen Type: BLOOD SPECIMENOrdering Facility: [facility] Address:[address] [place], [place] [address]Performed By: #### 72201-8 ####[facility] LABIA [id number] [place], [place] [address]Kbzbhesnphs distribution width (RBC) [Ratio]14.2 %Normal 11.5-15.0[facility] on above:Order Comment: Specimen Type: BLOOD SPECIMENOrdering Facility: [facility] Address:[address] [place], [place] [address]Performed By: #### 96072-9 ####[facility] LABIA [id number] [place] [address] Hematocrit (Bld) [Volume fraction]39.0 %Uqcjpc07.0-46.0[facility] on above:Order Comment: Specimen Type: BLOOD SPECIMENOrdering Facility: [facility] Address:[address] [place], [place] [address]Performed By: #### 38998-2 ####[facility] LABIA [id number] [place], [place] [address]Ajvdgbxrjg (Bld) [Mass/Vol]13.0 g/wXQdxpix79.5-15.5CTrinity Health System [facility] Campus on above:Order Comment: Specimen Type: BLOOD SPECIMENOrdering Facility: [facility] Address:[address] [place], [place] [address]Performed By: #### 07773-5 ####[facility] LABIA [id number] [place], [place] [address]Ckigeqli granulocytes (Bld) [#/Vol]0.21 10*3/uLHigh<0.10 [facility] on above:Order Comment: Specimen Type: BLOOD SPECIMENOrdering Facility: [facility] Address:[address] [place], [place] [address]Performed By: #### 96696-5 ####[facility] LABCLIA [id number] [place], [place] [address]Prfmeonp granulocytes/100 WBC (Bld)1.5 %NormalOhio State Health System on above: Order Comment: Specimen Type: BLOOD SPECIMENOrdering Facility: [facility] Address:[address] [place], [place] [address]Performed By: #### 61301- 8 ####[facility] LABCLIA [id number] [place], [place] [address]Ngfrjkmghtj (Bld) [#/Vol]2.16 10*3/uLNormal1.00-4.00 [facility] on above:Order Comment: Specimen Type: BLOOD SPECIMENOrdering Facility: [facility] Address:[address] [place], [place] [address]Performed By: #### 84680-6 ####[facility] LABIA [id number] [place], [place] [address]Tufcveawchc/100 WBC (Bld)15.4 %NormalOhio State Health System on above:Order Comment: Specimen Type: BLOOD SPECIMENOrdering Facility: [facility] Address:[address] [place], [place] [address]Performed By: #### 77637-7 ####[facility] LABCLIA [id number] [place], [place] [address]QGS (RBC) [Entitic mass]30.5 voUmexon89.0-34.0[facility] on above:Order Comment: Specimen Type: BLOOD SPECIMENOrdering Facility: [facility] Address:[address] [place], [place] [address]Performed By: #### 87620-5 ####[facility] LABCLIA [id number] [place], [place] [address]PIIO (RBC) [Mass/Vol]33.3 g/fTGbmfsm52.5-36.0[facility] on above: Order Comment: Specimen Type: BLOOD SPECIMENOrdering Facility: [facility] Address:[address] [place], [place] [address]Performed By: #### 93288- 8 ####[facility] LABCLIA [id number] [place], [place] [address]ZAP (RBC) [Entitic vol]91.5 hHCaanxq06.0-100.0[facility] on above:Order Comment: Specimen Type: BLOOD SPECIMENOrdering Facility: [facility] Address:[address] [place], [place] [address]Performed By: #### 08891-6 ####[facility] LABIA [id number] [place], [place] [address]Xkxhplpkj (Bld) [#/Vol]0.79 10*3/uLNormal<0.87[facility] on above:Order Comment: Specimen Type: BLOOD SPECIMENOrdering Facility: [facility] Address:[address] [place], [place] [address]Performed By: #### 86562- 8 ####[facility] LABCLIA [id number] [place], [place] [address]Lclgfaqol/100 WBC (Bld)5.6 %NormalOhio State Health System on above:Order Comment: Specimen Type: BLOOD SPECIMENOrdering Facility: [facility] Address:[address] [place], [place] [address]Performed By: #### 58721-9 ####[facility] LABIA [id number] [place], [place] [address]Lmhpejvpdhz (Bld) [#/Vol]10.59 10*3/uLHigh1.45-7.50[facility] on above:Order Comment: Specimen Type: BLOOD SPECIMENOrdering Facility: [facility] Address:[address] [place], [place] [address]Performed By: #### 65371-0 ####[facility] LABCLIA [id number] [place], [place] [address]Ccsmjtwpkdy/100 WBC (Bld)75.7 %NormalOhio State Health System on above:Order Comment: Specimen Type: BLOOD SPECIMENOrdering Facility: [facility] Address:[address] [place], [place] [address]Performed By: #### 90650-6 ####[facility] LABCLIA [id number] [place], [place] [address]Gtpjhbbdn RBC (Bld) [#/Vol] 10*3/uLNormal<0.01[facility] on above:Order Comment: Specimen Type: BLOOD SPECIMENOrdering Facility: [facility] Address:[address] [place], [place] [address]Performed By: #### 89228-8 ####[facility] LABCLIA [id number] [place], [place] [address]Kdbzciqis RBC/100 WBC (Bld) [Ratio]0.0 /100 WBCNormal [facility] on above:Order Comment: Specimen Type: BLOOD SPECIMENOrdering Facility: [facility] Address:[address] [place], [place] [address]Performed By: #### 71952-6 ####[facility] LABCLIA [id number] [place], [place] [address]Xainczno mean volume (Bld) [Entitic vol]9.9 fLNormal9.0-12.7CTrinity Health System [facility] on above:Order Comment: Specimen Type: BLOOD SPECIMENOrdering Facility: [facility] Address:[address] [place] [address] Performed By: #### 44607-2 ####[facility] LABIA [id number] [place], [place] [address]Wpujdtuwl (Bld) [#/Vol]327 10*3/iEPrcaoa372-604TrqvmacrkOhio State Health System on above:Order Comment: Specimen Type: BLOOD SPECIMENOrdering Facility: [facility] Address:[address] [place] [address]Xppcrwfwp By: #### 26525-4 ####[facility] LABCLIA [id number] [place], [place] [address]NQI (Bld) [#/Vol]4.26 10*6/uLNormal3.90-5.20[facility] on above:Order Comment: Specimen Type: BLOOD SPECIMENOrdering Facility: [facility] Address:[address] [place] [address]Fdztktnwe By: #### 39244-5 ####[facility] LABCLIA [id number] [place], [place] [address]ZUF (Bld) [#/Vol]14.00 10*3/uLHigh3.70-11.00[facility] on above: Order Comment: Specimen Type: BLOOD SPECIMENOrdering Facility: [facility] Address:[address] [place] [address]Cgnzohcft By: #### 81359- 8 ####[facility] LABCLIA [id number] [place], [place] [address]QTIERSri 57-34-4561FRWLWSYxenuyUrjgfnqpv [facility] metabolic 2000 panelOrdered By: Josse Merlos on 23-93-4382Fbvneie [Mass/Vol]3.9 g/dL3.9 - 4.9 g/dLOcean Isle Beach ClinicALP [Catalytic activity/Vol]73 U/L34 - 123 U/LCleveland ClinicALT [Catalytic activity/Vol]24 U/L7 - 38 U/L [place] ClinicAnion gap [Moles/Vol]15 mmol/L8 - 15 mmol/LCleveland ClinicAST [Catalytic activity/Vol]12 U/LLow13 - 35 U/LCleveland ClinicBilirubin [Mass/Vol] mg/dLLow0.2 - 1.3 mg/dLCleohiohealth doctors hospital ClinicCalcium [Mass/Vol]9.2 mg/dL8.5 - 10.2 mg/dLCleveland ClinicChloride [Moles/Vol]104 mmol/L98 - 107 mmol/LCleveland ClinicCO2 [Moles/Vol]19 mmol/LLow22 - 30 mmol/LCleveland ClinicCreatinine [Mass/Vol]0.58 mg/dL0.58 - 0.96 mg/dLDetwiler Memorial HospitalGFR/1.73 sq M.predicted among non-blacks MDRD (S/P/Bld) [Vol rate/Area]115 mL/min/{1.73_m2}- PINF Detwiler Memorial HospitalComment on above:Estimated Glomerular Filtration Rate (eGFR) is calculated using the 2020 CKD-EPI creatinine equation. This equation utilizes serum creatinine, sex, and age as parameters. The creatinine assay has traceable calibration to isotope dilution-mass spectrometry. Refer to KDIGO guidelines for clinical interpretation. In patients with unstable renal function, e.g. those with acute kidney injury, the eGFRmay not accurately reflect actual GFR.Glucose [Mass/Vol]163 mg/kUFrsn11 - 99 mg/dLDetwiler Memorial HospitalComment on above:The [place] Diabetes Association (ADA) provides guidance for [...] Standards of Medical Care in Diabetes 2016, [place] [employer]. Diabetes Care. 2016.39(Suppl 1). Interpretation and review of laboratory resultsAbnormalCleveland ClinicPotassium [Moles/Vol]3.9 mmol/L3.7 - 5.1 mmol/LCleveland ClinicProtein [Mass/Vol]6.8 g/dL 6.3 - 8.0 g/dLOcean Isle Beach ClinicSodium [Moles/Vol]138 mmol/L136 - 144 mmol/L [facility]wiler Memorial HospitalUrea nitrogen [Mass/Vol]13 mg/dL7 - 21 mg/dLAshtabula General HospitalComprehensive metabolic 2000 panelon 48-34-1059Hctkeaa [Mass/Vol]3.9 g/dLNormal3.9-4.9CTrinity [facility] on above:Order Comment: Specimen Type: BLOOD SPECIMENOrdering Facility: [facility] Address:[address] [place], [place] [address]Performed By: #### 96861- [id number] ####JULIAN [facility] LABCLIA [id number] [facility] [place], [place] [address]MTZ [Catalytic activity/Vol]73 U/CVapevy73-562IwcwkrgxkOhio State Health System on above:Order Comment: Specimen Type: BLOOD SPECIMENOrdering Facility: [facility] Address:[address] [place], [place] [address]Performed By: #### 38623-5 ####[facility] LABCLIA [id number] [place], [place] [address]HAM [Catalytic activity/Vol]24 U/LNormal7-38[facility] on above:Order Comment: Specimen Type: BLOOD SPECIMENOrdering Facility: [facility] Address:[address] [place], [place] [address]Performed By: #### 04198- 8 ####[facility] LABCLIA [id number] [facility] [place], [place] [address]Thyhd gap [Moles/Vol]15 mmol/LNormal8-15[facility] on above:Order Comment: Specimen Type: BLOOD SPECIMENOrdering Facility: [facility] Address:[address] [place], [place] [address]Performed By: #### 02946-9 ####[facility] LABCLIA [id number] [place], [place] [address]YNY [Catalytic activity/Vol]12 U/RYhx86-00ZzkdfcufyOhio State Health System on above:Order Comment: Specimen Type: BLOOD SPECIMENOrdering Facility: [facility] Address:[address] [place], [place] [address]Performed By: #### 73586-7 ####[facility] LABCLIA [id number] [place] [address] Bilirubin [Mass/Vol]mg/dLLow0.2-1.3CTrinity Health System [facility] on above: Order Comment: Specimen Type: BLOOD SPECIMENOrdering Facility: [facility] Address:[address] [place], [place] [address]Performed By: #### 21610- 8 ####[facility] LABCLIA [id number] [place], [place] [address]Yguyvgm [Mass/Vol]9.2 mg/dLNormal8.5-10.2CTrinity Health System [facility] on above:Order Comment: Specimen Type: BLOOD SPECIMENOrdering Facility: [facility] Address:[address] [place], [place] [address]Performed By: #### 57906-4 ####[facility] LABCLIA [id number] [place], [place] [address]Ipsoazux [Moles/Vol]104 mmol/L Fqsamr42-666PvkixaucpOhio State Health System on above:Order Comment: Specimen Type: BLOOD SPECIMENOrdering Facility: [facility] Address:[address] [place], [place] [address]Performed By: #### 23628-6 ####[facility] LABCLIA [id number] [place] [address] CO2 [Moles/Vol]19 mmol/YLfp90-35WvttonxcjOhio State Health System on above:Order Comment: Specimen Type: BLOOD SPECIMENOrdering Facility: [facility] Address:[address] [place], [place] [address]Performed By: #### 34217- 8 ####[facility] LABIA [id number] [place], [place] [address]Uivtdkpaps [Mass/Vol]0.58 mg/dLNormal0.58-0.96[facility] on above:Order Comment: Specimen Type: BLOOD SPECIMENOrdering Facility: [facility] Address:[address] [place] [address]Knbguflzk By: #### 86657-0 ####[facility] LABCLIA [id number] [place], [place] [address]Ytxmczlijq and Glomerular filtration rate.predicted panel (S/P/Bld)115 mL/min/1.73m???Normal >=60[facility] on above:Order Comment: Specimen Type: BLOOD SPECIMENOrdering Facility: [facility] Address:[address] [place], [place] [address]Result Comment: Estimated Glomerular Filtration Rate (eGFR) is calculated using the 2020 CKD-EPI creatinine equation. This equation utilizes serum creatinine, sex, and age as parameters. The creatinine assay has traceable calibration to isotope dilution-mass spectrometry. Refer to KDIGO guidelines for clinical interpretation. In patients with unstable renal function, e.g. those with acute kidney injury, the eGFR may not accurately reflect actual GFR.Performed By: #### 57934-3 ####[facility] LABCLIA [id number] [place], [place] [address]Xonwbnw [Mass/Vol]163 mg/dIWimi16-93KesoislauOhio State Health System on above:Order Comment: Specimen Type: BLOOD SPECIMENOrdering Facility: [facility] Address:[address] [place] [address]Iofdrt Comment: The [place] Diabetes Association (ADA) provides guidance for [...] Standards of Medical Care in Diabetes 2016, [place] [employer] Association. Diabetes Care. 2016.39(Suppl 1).Performed By: #### 77032-5 ####[facility] LABCLIA [id number] [place], [place] [address]Ysjumreta [Moles/Vol]3.9 mmol/LNormal3.7-5.1CTrinity Health System [facility] on above: Order Comment: Specimen Type: BLOOD SPECIMENOrdering Facility: [facility] Address:[address] [place], [place] [address]Performed By: #### 47996- 8 ####[facility] LABIA [id number] [place], [place] [address]Cxdhuit [Mass/Vol]6.8 g/dLNormal6.3-8.0[facility] on above:Order Comment: Specimen Type: BLOOD SPECIMENOrdering Facility: [facility] Address:[address] [place], [place] [address]Performed By: #### 60075-0 ####[facility] LABIA [id number] [place], [place] [address]Edekdo [Moles/Vol]138 mmol/L Xmnazw380-949TxoykjfdkOhio State Health System on above:Order Comment: Specimen Type: BLOOD SPECIMENOrdering Facility: [facility] Address:[address] [place], [place] [address]Performed By: #### 77056-2 ####[facility] LABIA [id number] [place] [address] Urea nitrogen [Mass/Vol]13 mg/dLNormal7-21[facility] on above:Order Comment: Specimen Type: BLOOD SPECIMENOrdering Facility: [facility] Address:[address] [place], [place] [address]Performed By: #### 80173-5 ####[facility] [id number] [place], [place] [address]WPT Westergren method (Bld) [Velocity]on 06-13-2024 ESR (Bld) [Velocity]30 mm/hHighDetwiler Memorial HospitalInterpretation and review of laboratory resultsAbnormalCtrihealth good samaritan hospital Kettering Health HamiltonESR (Bld) [Velocity]30 mm/hHigh0-20[facility] on above:Order Comment: Specimen Type: BLOOD SPECIMENOrdering Facility: [facility] Address:[address] [place], [place] [address]Performed By: #### 4537-7 ####[facility] LABCLIA [id number] [place] [address] [place] OF AMERICAFERRITINon 57-96-7056Jnfqwjgp [Mass/Vol]30.9 ng/mL14.7 - 205.1 ng/mLCleveland ClinicFOLATE, SERUMon 63-75-3609Mikxxo [Mass/Vol]19.6 ng/mL4.7 - PINF ng/mLCleveland ClinicFerritin SerPl-mCncon 59-15-6889Rfusxjhn [Mass/Vol]30.9 ng/iAEouakt84.7-205.1ClevelHighland District Hospital on above: Order Comment: Specimen Type: BLOOD SPECIMENOrdering Facility: [facility] Address:[address] [place], [place] [address]Performed By: #### 2284- 8, 2276-4, 70375-7, 2132-01 ####[facility] LABCLIA [id number] [place] [address] [place] AMERICAFerritin [Mass/Vol]on 74-33-9285Gckmkaaqsaivia and review of laboratory resultsNormal [facility] Community HospitalFolate SerPl-mCncon 54-59-2387Xjjqbx [Mass/Vol] 19.6 ng/mLNormal>4.7ClevelHighland District Hospital on above:Order Comment: Specimen Type: BLOOD SPECIMENOrdering Facility: [facility] Address:[address] [place], [place] [address]Performed By: #### 2284-8, 2276-4, 52017-4, 2132-01 ####[facility] LABCLIA [id number] [place] [address] [place] IMMUNOGLOBULINS,IGG,IGA,IGMon 22-79-9201MzF [Mass/Vol]170 mg/pDOwjovh92-097 [facility] on above:Order Comment: Specimen Type: BLOOD SPECIMENOrdering Facility: [facility] Address:[address] [place], [place] [address]Performed By: #### SERIMM ####[facility] LABCLIA [id number] [address] [address] [place] AMERICAIgG [Mass/Vol]663 mg/uEPkt827-5155UosllidygOhio State Health System on above:Order Comment: Specimen Type: BLOOD SPECIMENOrdering Facility: [facility] Address:[address] [place], [place] [address]Performed By: #### SERIMM ####[facility] LABCLIA [id number] [address] [address] [place] AMERICAIgM [Mass/Vol]376 mg/dL Fekv47-947OqaaorjxuOhio State Health System on above:Order Comment: Specimen Type: BLOOD SPECIMENOrdering Facility: [facility] Address:[address] [place], [place] [address]Performed By: #### SERIMM ####[facility] LABCLIA [id number] [address] [address] [place] OF AMERICAIron and Iron binding capacity panelon 34-22-2088Bkun [Mass/Vol]64 ug/iKVwnqyg21-500YrehqjunmOhio State Health System on above:Order Comment: Specimen Type: BLOOD SPECIMENOrdering Facility: [facility] Address:[address] [place], [place] [address]Performed By: #### 2284- 8, 2276-4, 14074-3, 2132-9 ####[facility] LABCLIA [id number] [facility] [place] [address] [place] AMERICAIron binding capacity [Mass/Vol]409 ug/qAUanm142-245AddoudlviOhio State Health System on above:Order Comment: Specimen Type: BLOOD SPECIMENOrdering Facility: [facility] Address:[address] [place], [place] [address] Performed By: #### 2284-8, 2276-4, 75281-8, 2132-01 ####[facility] LABCLIA [id number] [place] [address] [place] AMERICAIron/TIBC [Molar ratio]15.6 %Wocgrx90.0-57.0[facility] on above:Order Comment: Specimen Type: BLOOD SPECIMENOrdering Facility: [facility] Address:[address] [place], [place] [address]Performed By: #### 2284-8, 6-4, 08155-3, 2132-01 ####[facility] LABCLIA [id number] [place] [address] [place] AMERICALaboratory - Chemistry and Chemistry - challengeon 37-79-4836DiO [Mass/Vol]170 mg/dL70 - 400 mg/dLDetwiler Memorial HospitalIgG [Mass/Vol]663 mg/sURug882 - 1600 mg/dLOcean Isle Beach ClinicIgM [Mass/Vol]376 mg/jRVmol71 - 230 mg/dLDetwiler Memorial HospitalNo Panel Informationon 69-48-0116Lxvotdjctkbbrp and review of laboratory resultsNormalCleveland Kettering Health HamiltonInterpretation and review of laboratory resultsAbnormalCleveland Kettering Health HamiltonVITAMIN B12 on 94-06-2838Qnynbggxr (Vitamin B12) [Mass/Vol]516 pg/mL232 - 1245 pg/mL Detwiler Memorial HospitalVit B12 SerPl-ncon 33-48-7914Hkrtdtcyk (Vitamin B12) [Mass/Vol]516 pg/cNZomlnv093-8859JxtkfxafiTrinity Health System East Campus on above: Order Comment: Specimen Type: BLOOD SPECIMENOrdering Facility: [facility] Address:[address] [place], [place] [address]Performed By: #### 2284- 8, 2276-4, 11457-2, 2132-01 ####[facility] LABCLIA [id number] [place] [id number] [place] OF AMERICACNPNon 17-77-3441RJZVOnlecdJvegtbwmv Clinic ClevelandIGP,APTIMA HPV,AGE GDLNon 92-83-5612LZE GDLN ACOG TESTINGNote.NOMS HealthcareComment on above:TESTS RESULT FLAG UNITS REF RANGE LAB Clinician Provided Cytology Information Source.............Cervix;Endocervix No. of containers..01 ThinPrep Vial Age Algo ACOG Vicky... FLAG LEGEND: L-Low Normal,H-High Normal,LL-Alert Low,HH-Alert High <-Panic Low,>-Panic High,A-Abnormal,AA-Critical Abnormal Performed at: 01 =[address] [address] Aparna Solorzano MD, HPV APTIMANegativeNegativeNOMS HealthcareComment on above:This nucleic acid amplification test detects fourteen high- risk HPV types (16,18,31,33,35,39,45,51,52,56,58,59,66,68) without differentiation. Performed at: =[address] [id number] Field Reimbursement Manager: Aparna Solorzano MD, Phone: [phone] Performed at: [address] [id number] Field Reimbursement Manager: Aparna Solorzano MD, Phone: [phone] IGP, APTIMA HPV, RFX 16/18,45Note.NOMS HealthcareComment on above:TESTS RESULT FLAG UNITS REF RANGE LAB DIAGNOSIS: 02 NEGATIVE FOR INTRAEPITHELIAL LESION OR MALIGNANCY. Specimen adequacy: 02 Satisfactory for evaluation. Endocervical and/or squamous metaplastic cells (endocervical component) are present. Performed by: 02 Kenzie Kam, Medicine And Health Service Manager ([facility]) . 02 Note: Note 02 [...] Abnormal Performed at: 02 [facility] [address] [place] [address] Aparna Solorzano MD, BRUSH-SPATULA CERVIX ENDOCERVIX CLINISYNCNOMS [facility] W Auto Differential panel (Bld)on 05-19-2024 Basophils (Bld) [#/Vol]0.08 10*3/uLNINFDetwiler Memorial HospitalBasophils/100 WBC (Bld) 0.6 %Detwiler Memorial HospitalDifferential cell count method Nom (Bld)AutoCleveland ClinicEosinophils (Bld) [#/Vol]0.17 10*3/uLNINFDetwiler Memorial HospitalEosinophils/100 WBC (Bld)1.2 %Detwiler Memorial HospitalErythrocyte distribution width (RBC) [Ratio]14.3 % 11.5 - 15.0 %Detwiler Memorial HospitalHematocrit (Bld) [Volume fraction]39.8 %36.0 - 46.0 %Detwiler Memorial HospitalHemoglobin (Bld) [Mass/Vol]13.4 g/dL11.5 - 15.5 g/dLDetwiler Memorial HospitalImmature granulocytes (Bld) [#/Vol]0.13 10*3/uLHighNIGalion Hospital Immature granulocytes/100 WBC (Bld)0.9 %[facility]wiler Memorial HospitalInterpretation and review of laboratory resultsAbnormalCleveland ClinicLymphocytes (Bld) [#/Vol] 2.96 10*3/uLDetwiler Memorial HospitalLymphocytes/100 WBC (Bld)20.5 %[facility] Medical CenterH (RBC) [Entitic mass]31.1 pg26.0 - 34.0 pgClevelSt. Gabriel HospitalHC (RBC) [Mass/Vol] 33.7 g/dL30.5 - 36.0 g/dLUniversity Hospitals Beachwood Medical CenterV (RBC) [Entitic vol]92.3 fL80.0 - 100.0 fLCleveland ClinicMonocytes (Bld) [#/Vol]0.87 10*3/uLHighNINFDetwiler Memorial HospitalMonocytes/100 WBC (Bld)6.0 %Detwiler Memorial HospitalNeutrophils (Bld) [#/Vol]10.20 10*3/uLHighDetwiler Memorial HospitalNeutrophils/100 WBC (Bld)70.8 %[facility] Nucleated RBC (Bld) [#/Vol]NINFCleveland ClinicNucleated RBC/100 WBC (Bld) [Ratio]0.0 %/100 WBCCleveland ClinicPlatelet mean volume (Bld) [Entitic vol]10.1 fL9.0 - 12.7 fLCOhio Valley Surgical HospitalPlatelets (Bld) [#/Vol]303 10*3/uLOcean Isle Beach ClinicRBC (Bld) [#/Vol]4.31 10*6/uL3.90 - 5.20 m/uLDetwiler Memorial HospitalWBC (Bld) [#/Vol]14.41 10*3/uLHighBucyrus Community Hospital ClinicBasophils (Bld) [#/Vol] 0.08 10*3/uLNormal<0.11CTrinity Health System East Campus on above:Order Comment: Specimen Type: BLOOD SPECIMENOrdering Facility: [facility] Address:[address] [place], [place] [address]Performed By: #### 75585-0 ####[facility] LABCLIA [id number] [place], [place] [address]Pzprnfkfm/100 WBC (Bld)0.6 %NormalOhio State Health System on above:Order Comment: Specimen Type: BLOOD SPECIMENOrdering Facility: [facility] Address:[address] [place], [place] [address]Performed By: #### 00289-5 ####[facility] LABCLIA [id number] [place], [place] [address]Vbkxtqhuiigh cell count method Nom (Bld)AutoNormalCTrinity Health System East Campus on above:Order Comment: Specimen Type: BLOOD SPECIMENOrdering Facility: [facility] Address:[address] [place], [place] [address]Performed By: #### 67719-5 ####[facility] LABCLIA [id number] [place], [place] [address]Tpwhxfaebrh (Bld) [#/Vol]0.17 10*3/uLNormal<0.46[facility] on above:Order Comment: Specimen Type: BLOOD SPECIMENOrdering Facility: [facility] Address:[address] [place], [place] [address]Performed By: #### 41603-4 ####[facility] LABIA [id number] [place], [place] [address]Iqdzgptbepq/100 WBC (Bld)1.2 %NormalOhio State Health System on above:Order Comment: Specimen Type: BLOOD SPECIMENOrdering Facility: [facility] Address:[address] [place], [place] [address]Performed By: #### 11396-8 ####[facility] LABIA [id number] [place], [place] [address]Veoehunxtew distribution width (RBC) [Ratio]14.3 %Normal 11.5-15.0[facility] on above:Order Comment: Specimen Type: BLOOD SPECIMENOrdering Facility: [facility] Address:[address] [place], [place] [address]Performed By: #### 94074-7 ####[facility] LABIA [id number] [place] [address] Hematocrit (Bld) [Volume fraction]39.8 %Ddyxgu40.0-46.0[facility] on above:Order Comment: Specimen Type: BLOOD SPECIMENOrdering Facility: [facility] Address:[address] [place], [place] [address]Performed By: #### 35435-8 ####[facility] LABIA [id number] [place], [place] [address]Jbevdtqusc (Bld) [Mass/Vol]13.4 g/eBNesjbd43.5-15.5CTrinity Health System East Campus on above:Order Comment: Specimen Type: BLOOD SPECIMENOrdering Facility: [facility] Address:[address] [place], [place] [address]Performed By: #### 67049-5 ####[facility] LABIA [id number] [place], [place] [address]Cquyiaqz granulocytes (Bld) [#/Vol]0.13 10*3/uLHigh<0.10 [facility] on above:Order Comment: Specimen Type: BLOOD SPECIMENOrdering Facility: [facility] Address:[address] [place], [place] [address]Performed By: #### 37685-0 ####[facility] LABCLIA [id number] [place], [place] [address]Vaapbipe granulocytes/100 WBC (Bld)0.9 %[facility] on above: Order Comment: Specimen Type: BLOOD SPECIMENOrdering Facility: [facility] Address:[address] [place], [place] [address]Performed By: #### 68572- 8 ####[facility] LABCLIA [id number] [place], [place] [address]Mjogipldegl (Bld) [#/Vol]2.96 10*3/uLNormal1.00-4.00 [facility] on above:Order Comment: Specimen Type: BLOOD SPECIMENOrdering Facility: [facility] Address:[address] [place], [place] [address]Performed By: #### 65946-8 ####[facility] LABIA [id number] [place], [place] [address]Uowxadrtwys/100 WBC (Bld)20.5 %NormalOhio State Health System on above:Order Comment: Specimen Type: BLOOD SPECIMENOrdering Facility: [facility] Address:[address] [place], [place] [address]Performed By: #### 76470-6 ####[facility] LABCLIA [id number] [place], [place] [address]DMD (RBC) [Entitic mass]31.1 qzYxbiwn90.0-34.0[facility] on above:Order Comment: Specimen Type: BLOOD SPECIMENOrdering Facility: [facility] Address:[address] [place], [place] [address]Performed By: #### 75442-5 ####[facility] LABCLIA [id number] [place], [place] [address]WWMZ (RBC) [Mass/Vol]33.7 g/wHBpejga43.5-36.0[facility] on above: Order Comment: Specimen Type: BLOOD SPECIMENOrdering Facility: [facility] Address:[address] [place], [place] [address]Performed By: #### 11460- 8 ####[facility] LABCLIA [id number] [place], [place] [address]TND (RBC) [Entitic vol]92.3 mGZcdkgr13.0-100.0[facility] on above:Order Comment: Specimen Type: BLOOD SPECIMENOrdering Facility: [facility] Address:[address] [place], [place] [address]Performed By: #### 02608-2 ####[facility] LABIA [id number] [place], [place] [address]Cdnnhzhim (Bld) [#/Vol]0.87 10*3/uLHigh<0.87[facility] on above:Order Comment: Specimen Type: BLOOD SPECIMENOrdering Facility: [facility] Address:[address] [place], [place] [address]Performed By: #### 42504- 8 ####[facility] LABCLIA [id number] [place], [place] [address]Xiielhfyu/100 WBC (Bld)6.0 %NormalOhio State Health System on above:Order Comment: Specimen Type: BLOOD SPECIMENOrdering Facility: [facility] Address:[address] [place], [place] [address]Performed By: #### 39867-0 ####[facility] LABIA [id number] [place], [place] [address]Hnjgatzzqjn (Bld) [#/Vol]10.20 10*3/uLHigh1.45-7.50[facility] on above:Order Comment: Specimen Type: BLOOD SPECIMENOrdering Facility: [facility] Address:[address] [place], [place] [address]Performed By: #### 25028-5 ####[facility] LABCLIA [id number] [place], [place] [address]Pjqpujliadv/100 WBC (Bld)70.8 %NormalOhio State Health System on above:Order Comment: Specimen Type: BLOOD SPECIMENOrdering Facility: [facility] Address:[address] [place], [place] [address]Performed By: #### 41071-1 ####[facility] LABCLIA [id number] [place], [place] [address]Gqllieauy RBC (Bld) [#/Vol] 10*3/uLNormal<0.01[facility] on above:Order Comment: Specimen Type: BLOOD SPECIMENOrdering Facility: [facility] Address:[address] [place], [place] [address]Performed By: #### 74865-7 ####[facility] LABCLIA [id number] [place], [place] [address]Vstuiazii RBC/100 WBC (Bld) [Ratio]0.0 /100 WBCNormal [facility] on above:Order Comment: Specimen Type: BLOOD SPECIMENOrdering Facility: [facility] Address:[address] [place], [place] [address]Performed By: #### 46348-7 ####[facility] LABCLIA [id number] [place], [place] [address]Inbyblac mean volume (Bld) [Entitic vol]10.1 fLNormal9.0-12.7CTrinity Health System East Campus on above:Order Comment: Specimen Type: BLOOD SPECIMENOrdering Facility: [facility] Address:[address] [place] [address] Performed By: #### 06636-3 ####[facility] LABCLIA [id number] [place], [place] [address]Fobzhjihp (Bld) [#/Vol]303 10*3/iPGcxlyh906-913VpaabjqpdOhio State Health System on above:Order Comment: Specimen Type: BLOOD SPECIMENOrdering Facility: [facility] Address:[address] [place], [place] [address]Performed By: #### 40852-7 ####[facility] LABCLIA [id number] [place], [place] [address]JXT (Bld) [#/Vol]4.31 10*6/uLNormal3.90-5.20[facility] on above:Order Comment: Specimen Type: BLOOD SPECIMENOrdering Facility: [facility] Address:[address] [place], [place] [address]Performed By: #### 20583-2 ####[facility] LABIA [id number] [place], [place] [address]SRA (Bld) [#/Vol]14.41 10*3/uLHigh3.70-11.00[facility] on above: Order Comment: Specimen Type: BLOOD SPECIMENOrdering Facility: [facility] Address:[address] [place], [place] [address]Performed By: #### 51865- 8 ####[facility] LABIA [id number] [place], [place] [address]Fzcijavgaxobr metabolic 2000 panelon 18-14-7791Hqshukb [Mass/Vol]4.0 g/dL3.9 - 4.9 g/dLAshtabula General Hospitalveland ClinicALP [Catalytic activity/Vol]79 U/L34 - 123 U/LCleveland ClinicALT [Catalytic activity/Vol]25 U/L7 - 38 U/L [place] [facility] Beach ClinicAnion gap [Moles/Vol]14 mmol/L8 - 15 mmol/LCleveland ClinicAST [Catalytic activity/Vol]12 U/LLow13 - 35 U/LCleveland ClinicBilirubin [Mass/Vol] mg/dLLow0.2 - 1.3 mg/dLOcean Isle Beach ClinicCalcium [Mass/Vol]9.4 mg/dL8.5 - 10.2 mg/dLCleohiohealth doctors hospital ClinicChloride [Moles/Vol]105 mmol/L98 - 107 mmol/LCleveland ClinicCO2 [Moles/Vol]21 mmol/LLow22 - 30 mmol/LCleveland ClinicCreatinine [Mass/Vol]0.49 mg/dLLow0.58 - 0.96 mg/dLOcean Isle Beach ClinicGFR/1.73 sq M.predicted among non-blacks MDRD (S/P/Bld) [Vol rate/Area]120 mL/min/{1.73_m2}- PINF Detwiler Memorial HospitalComment on above:Estimated Glomerular Filtration Rate (eGFR) is calculated using the 2020 CKD-EPI creatinine equation. This equation utilizes serum creatinine, sex, and age as parameters. The creatinine assay has traceable calibration to isotope dilution-mass spectrometry. Refer to KDIGO guidelines for clinical interpretation. In patients with unstable renal function, e.g. those with acute kidney injury, the eGFRmay not accurately reflect actual GFR.Glucose [Mass/Vol]155 mg/tWCazt48 - 99 mg/dLDetwiler Memorial HospitalComment on above:The [place] Diabetes Association (ADA) provides guidance for [...] Standards of Medical Care in Diabetes 2016, [place] [employer]. Diabetes Care. 2016.39(Suppl 1). Interpretation and review of laboratory resultsAbnormalCleveland ClinicPotassium [Moles/Vol]3.8 mmol/L3.7 - 5.1 mmol/LCleveland ClinicProtein [Mass/Vol]6.6 g/dL 6.3 - 8.0 g/dLCleveland ClinicSodium [Moles/Vol]140 mmol/L136 - 144 mmol/L [facility] ClinicUrea nitrogen [Mass/Vol]12 mg/dL7 - 21 mg/dLWhite Hospital ClinicAlbumin [Mass/Vol]4.0 g/dLNormal3.9-4.9CTrinity Health System [facility] on above:Order Comment: Specimen Type: BLOOD SPECIMENOrdering Facility: [facility] Address:[address] [place], [place] [address]Performed By: #### 72686-2 ####[facility] LABCLIA [id number] [place] [address] [place] ALP [Catalytic activity/Vol]79 U/OEtodid44-378QhskwzhcsOhio State Health System on above:Order Comment: Specimen Type: BLOOD SPECIMENOrdering Facility: [facility] Address:[address] [place] [address] Performed By: #### 17859-8 ####[facility] LABCLIA [id number] [place] [address] [place] [Catalytic activity/Vol]25 U/LNormal7-38[facility] on above:Order Comment: Specimen Type: BLOOD SPECIMENOrdering Facility: [facility] Address:[address] [place], [place] [address]Performed By: #### [id number] ####[facility] [id number] [place] [address] [place] AMERICAAn[place] gap [Moles/Vol] 14 mmol/LNormal8-15[facility] on above:Order Comment: Specimen Type: BLOOD SPECIMENOrdering Facility: [facility] Address:[address] [place], [place] [address]Performed By: #### 68062-6 ####[facility] [id number] [place] [address] [place] [Catalytic activity/Vol]12 U/XWsq83-44FhwhiugzzOhio State Health System on above:Order Comment: Specimen Type: BLOOD SPECIMENOrdering Facility: [facility] Address:[address] [place], [place] [address]Performed By: #### 34068-5 ####[facility] [id number] [place] [address] [place] AMERICABilirubin [Mass/Vol]mg/dLLow0.2-1.3CTrinity [facility] on above:Order Comment: Specimen Type: BLOOD SPECIMENOrdering Facility: [facility] Address:[address] [place], [place] [address]Performed By: #### [id number] ####[facility] [id number] [place] [address] [place] Calcium [Mass/Vol]9.4 mg/dLNormal8.5-10.2CTrinity [facility] on above:Order Comment: Specimen Type: BLOOD SPECIMENOrdering Facility: [facility] Address:[address] [place], [place] [address]Performed By: #### 39614-2 ####[facility] [id number] [place] [address] [place] AMERICAChloride [Moles/Vol] 105 mmol/UFxgyit96-629QjibbwknaOhio State Health System on above:Order Comment: Specimen Type: BLOOD SPECIMENOrdering Facility: [facility] Address:[address] [place], [place] [address]Performed By: #### 80249-2 ####[facility] [id number] [place] [address] [place] AMERICACO2 [Moles/Vol]21 mmol/YZhs59-03 [facility] on above:Order Comment: Specimen Type: BLOOD SPECIMENOrdering Facility: [facility] Address:[address] [place], [place] [address]Performed By: #### 48996-4 ####[facility] [id number] [place] [address] [place] AMERICACreatinine [Mass/Vol]0.49 mg/dLLow0.58-0.96[facility] Comment on above:Order Comment: Specimen Type: BLOOD SPECIMENOrdering Facility: [facility] Address:[address] [place] [address] Performed By: #### 93498-0 ####[facility] [id number] [place] [address] [place] Creatinine and Glomerular filtration rate.predicted panel (S/P/Bld)120 mL/min/1.73m???Normal>=60[facility] Hospitalment on above:Order Comment: Specimen Type: BLOOD SPECIMENOrdering Facility: [facility] Address:[address] [place], [place] [address]Result Comment: Estimated Glomerular Filtration Rate (eGFR) is [...] not accurately reflect actual GFR.Performed By: #### 79632-1 ####[facility] [id number] [place] [address] [place] AMERICAGlucose [Mass/Vol]155 mg/dLHigh 74-99Ak[facility] Children's Hospitalment on above:Order Comment: Specimen Type: BLOOD SPECIMENOrdering Facility: [facility] Address:[address] [place], [place] [address]Result Comment: The [place] Diabetes Association (ADA) provides guidance for [...] Standards of Medical Care in Diabetes 2016, [place] [employer]. Diabetes Care. 2016.39(Suppl 1).Performed By: #### 71815-4 ####[facility] [id number] [place] [address] [place] AMERICAPotassium [Moles/Vol]3.8 mmol/L Normal3.7-5.1CTrinity [facility] on above:Order Comment: Specimen Type: BLOOD SPECIMENOrdering Facility: [facility] Address:[address] [place], [place] [address]Performed By: #### 78830-7 ####[facility] [id number] [place] [address] [place] AMERICAProtein [Mass/Vol]6.6 g/dLNormal6.3-8.0[facility] on above:Order Comment: Specimen Type: BLOOD SPECIMENOrdering Facility: [facility] Address:[address] [place], [place] [address]Performed By: #### 65630-2 ####[facility] [id number] [place] [address] [place] Sodium [Moles/Vol]140 mmol/BMbaunx478-976JtgtulmunOhio State Health System on above:Order Comment: Specimen Type: BLOOD SPECIMENOrdering Facility: [facility] Address:[address] [place], [place] [address]Performed By: #### 49307-9 ####[facility] [id number] [place] [address] [place] AMERICAUrea nitrogen [Mass/Vol]12 mg/dLNormal7-21[facility] on above:Order Comment: Specimen Type: BLOOD SPECIMENOrdering Facility: [facility] Address:[address] [place], [place] [address]Performed By: #### 60365- 8 ####[facility] [id number] [place] [address] [place] AMERICAESR Westergren method (Bld) [Velocity]on 84-46-7621JHU (Bld) [Velocity]21 mm/[facility] Interpretation and review of laboratory resultsAbnormalCleveland Kettering Health HamiltonESR (Bld) [Velocity]21 mm/hHigh0-20[facility] on above:Order Comment: Specimen Type: BLOOD SPECIMENOrdering Facility: [facility] Address:[address] [place], [place] [address]Performed By: #### 4537-7 ####[facility] [id number] [place] [address] [place] AMERICAFERRITIN BLDon 65-29-2212Lpowxxee [Mass/Vol]20.6 ng/mL14.7 - 205.1 ng/mLCleveland ClinicFOLATE SERUMon 89-83-5864Sdlsac [Mass/Vol]11.1 ng/mL4.7 - PINF ng/mLCleveland Clinic Ferritin SerPl-mCncon 67-25-0218Xkqyopgi [Mass/Vol]20.6 ng/bWWqpyvf71.7-205.1 [facility] on above:Order Comment: Specimen Type: BLOOD SPECIMENOrdering Facility: [facility] Address:[address] [place], [place] [address]Performed By: #### 46472-2, 2284-8, 9, 2275-4 ####[facility] [id number] [place] [address] [place] AMERICAFolate SerPl-mCncon 05-19-2024 Folate [Mass/Vol]11.1 ng/mLNormal>4.7ClevelHighland District Hospital on above: Order Comment: Specimen Type: BLOOD SPECIMENOrdering Facility: [facility] Address:[address] [place], [place] [address]Performed By: #### 23412- 8, 2284-8, 9, 2275-4 ####[facility] [id number] [address] [address] [place] AMERICAIron and Iron binding capacity panelon 34-15-1268Pmffnjhqgiiqhz and review of laboratory resultsAbnormalCleveland ClinicIron [Mass/Vol]47 ug/dL41 - 186 ug/dLDetwiler Memorial HospitalIron binding capacity [Mass/Vol]420 ug/xQAibe030 - 386 ug/dLDetwiler Memorial HospitalIron/TIBC [Molar ratio]11.2 %Low15.0 - 57.0 %[facility] ClinicIron [Mass/Vol]47 ug/iBOadehk01-097FqzbpfsofWhite HospitalComment on above:Order Comment: Specimen Type: BLOOD SPECIMENOrdering Facility: [facility] Address:[address] [place], [place] [address]Performed By: #### 00591-8, 2283-8, 9, 4 ####[facility] [id number] [address] [place] Iron binding capacity [Mass/Vol]420 ug/jLGwnz682-754ZexsbtpcqWhite Hospital Comment on above:Order Comment: Specimen Type: BLOOD SPECIMENOrdering Facility: [facility] Address:[address] [place] [address] Performed By: #### 19579-8, 2283-8, 9, 4 ####[facility] [id number] [place] [id number] [facility]ICAL CENTERIron/TIBC [Molar ratio]11.2 %Low15.0-57.0White HospitalComformerly [facility] on above:Order Comment: Specimen Type: BLOOD SPECIMENOrdering Facility: [facility] Address:[address] [place], [place] [address]Performed By: #### 93092-5, 2283-8, 9, 2275-4 ####[facility] [id number] [place] [id number] [place] AMERICANo Panel Informationon 01-95-1936Fiijyaiktchxrw and review of laboratory resultsNormalCSamaritan North Health CenterVITAMIN B12 BLOODon 39-24-5005Mebbnhafn (Vitamin B12) [Mass/Vol]632 pg/mL232 - 1245 pg/mL Detwiler Memorial HospitalVit B12 SerPl-mCncon 44-24-6037Mycqqqsjw (Vitamin B12) [Mass/Vol]632 pg/rFRflsqg412-9154Mcpepyhgf Clinic ClevelandComment on above: Order Comment: Specimen Type: BLOOD SPECIMENOrdering Facility: [facility] Address:[address] [place], [place] [address]Performed By: #### 35386- 8, 2284-8, 2132-9, 2276-4 ####[facility] [id number] [address] STATES OF AMERICACNNURSE on 71-09-2274KAXOURKFaqajfDaudxbcef Clinic ClevelandSEGMENTAL BLOOD PRESSUREon 39-29-4433JycMil[place] [address] Vein Report Signed Patient: ARIADNA HALEY MR#: [id number] : 1980 Acct:[id number] Age/Sex: 43 / F ADM Date: 04/26/24 Loc: VC Attending Dr: Hayden Arcinigea M.D. Ordering Physician: Hayden Arciniega M.D. Date of Service: 04/26/24 Procedure(s): VC SEGMENTAL PRESSURES Accession Number(s): [id number] cc: GAY DE LA TORRE ; Hayden Arciniega M.D. [address] [address] Patient Name: ARIADNA HALEY MRN: [id number] date: 1980 Sex: F Assigned Patient Location: VC Current Patient Location: Accession/Order Number: [id number] Exam Date: 04/26/2024 10:45 Report Date: 04/26/2024 12:29 At the request of: HAYDEN ARCINIEGA Procedure: VC SEGMENTAL PRESSURES EXAM: VC SEGMENTAL PRESSURES HISTORY: I73.9 COMPARISON: None. FINDINGS: Segmental pressures presented as follows (right, left) in mmHg. Brachial: 102, 109 Upper thigh: 175, 183 Lower thigh: 166, 177 Calf: 140, 143 DPA: 123, 148 EMBROIDERY SUPERVISOR: 139, 155 1st Toe: 141, 143 SAMUEL: [...] Signed By: 04/26/24 1231 DD/ 1229 TD/TT: Admin Assistant:BAIRONadiologgal, Radiologist, - 04/26/2024 [place] [address] Vein Report Signed Patient: ARIADNA HALEY MR#: [id number] : 1980 Acct:[id number] Age/Sex: 43 / F ADM Date: 04/26/24 Loc: VC Attending Dr: Hayden Arciniega M.D. Ordering Physician: Hayden Arciniega M.D. Date of Service: 04/26/24 Procedure(s): VC SEGMENTAL PRESSURES Accession Number(s): [id number] cc: GAY DE LA TORRE ; Hayden Arciniega M.D. The [place] [address] Patient Name: ARIADNA HALEY MRN: [id number] date: 1980 Sex: F Assigned Patient Location: Current Patient Location: VC Accession/Order Number: [id number] Exam Date: 04/26/2024 10:45 Report Date: 04/26/2024 12:29 At the request of: HAYDEN ARCINIEGA Procedure: VC SEGMENTAL PRESSURES EXAM: VC SEGMENTAL PRESSURES HISTORY: I73.9 COMPARISON: None. FINDINGS: Segmental pressures presented as follows (right, left) in mmHg. Brachial: 102, 109 Upper thigh: 175, 183 Lower thigh: 166, 177 Calf: 140, 143 DPA: 123, 148 EMBROIDERY SUPERVISOR: 139, 155 1st Toe: 141, 143 SAMUEL: [...] Signed By: 04/26/24 1231 DD/ 1229 TD/TT: Admin Assistant: MABLE HealthcareRadiology Study observation (narrative)[facility] HealthcareSEGMENTAL BLOOD PRESSUREOrdered By: Radiologist Radiology on 52-93-4564LDRQ Healthcare Work Phone: cNPNon [phone] Clinic [place] MM TOMOSYNTHESIS DIAGNOSTIC BIon 37-66-9269[place] [address] Mammography Report Signed Patient: ARIADNA HALEY MR#: [id number] : 1980 Acct:[id number] Age/Sex: 43 / F ADM Date: 04/06/24 Loc: US Attending Dr: Luan Valdivia D.O. Ordering Physician: Luan Valdivia D.O. Results: Date of Service: 04/06/24 Follow Up: Procedure(s): MM tomosynthesis diagnostic BI Accession Number(s): [id number] cc: GAY DE LA TORRE Corey D.O. Patient Name: ARIADNA HALEY MR#: [id number] : 1980 Exam Date: 04/06/2024 Ordering Doctor: DR Luan Valdivia . RADIOLOGY REPORT PROCEDURE: MM TOMOSYNTHESIS DIAGNOSTIC BI, 04/06/2024, 15:20 US BREAST BI LIMITED, 04/06/2024, 15:37 COMPARISON: MM TOMOSYNTHESIS SCREENING BI, 09/23/2023. MG MAMM SCREEN 3D SELENE CAD, 09/01/2022. MG MAMM SCREEN 3D SELENE CAD, 12/05/2020. INDICATIONS: Nipple Discharge Calculator Name [...] LUMP SHOULD BE BIOPSIED. Dictated by: Sayda Ann M.D. on 04/07/2024 at 08:29 Approved by: Sayda Ann M.D. on 04/07/2024 at 08:40 Dictated By: Sayda Ann M.D. Signed By: 04/07/24 0841 DD/ 0840 TD/TT: Admin Assistant:TBHRadiology, Radiologist, MD - 04/07/2024 [place] [address] Mammography Report Signed Patient: ARIADNA HALEY MR#: [id number] : 1980 Acct:[id number] Age/Sex: 43 / F ADM Date: 04/06/24 Loc: US Attending Dr: Luan Valdivia D.O. Ordering Physician: Luan Valdivia D.O. Results: Date of Service: 04/06/24 Follow Up: Procedure(s): MM tomosynthesis diagnostic BI Accession Number(s): [id number] cc: GAY DE LA TORRE ; Luan Valdivia D.O. Patient Name: ARIADNA HALEY MR#: [id number] : 1980 Exam Date: 04/06/2024 Ordering Doctor: DR Luan Valdivia . RADIOLOGY REPORT PROCEDURE: MM TOMOSYNTHESIS DIAGNOSTIC BI, 04/06/2024, 15:20 US BREAST BI LIMITED, 04/06/2024, 15:37 COMPARISON: MM TOMOSYNTHESIS SCREENING BI, 09/23/2023. MG MAMM SCREEN 3D SELENE CAD, 09/01/2022. MG MAMM SCREEN 3D SELENE CAD, 12/05/2020. INDICATIONS: Nipple Discharge Calculator Name [...] LUMP SHOULD BE BIOPSIED. Dictated by: Sayda Ann M.D. on 04/07/2024 at 08:29 Approved by: Sayda Ann M.D. on 04/07/2024 at 08:40 Dictated By: Sayda Ann M.D. Signed By: 04/07/2441 DD/ TD/TT: Admin Assistant: MABLE GlezNo Panel InformationOrdered By: Radiologist Radiology on 51-81-3335PKTZ [employer] Work Phone: No Panel Informationon 79-67-7033Yyhkupccz Study observation (narrative)MABLE Rao BREAST BI LIMITEDon 44-88-5356KseAlexa [place] [address] Ultrasound Report Signed Patient: ARIADNA HALEY MR#: [id number] : 1980 Acct:[id number] Age/Sex: 43 / F ADM Date: 04/06/24 Loc: US Attending Dr: Luan Valdivia D.O. Ordering Physician: Luan Valdivia D.O. Date of Service: 04/06/24 Procedure(s): US breast BI limited Accession Number(s): [id number] cc: GAY DE LA TORRE ; Luan Valdivia D.O. Patient Name: ARIADNA HALEY MR#: [id number] : 1980 Exam Date: 04/06/2024 Ordering Doctor: DR Luan Valdivia . RADIOLOGY REPORT PROCEDURE: MM TOMOSYNTHESIS DIAGNOSTIC BI, 04/06/2024, 15:20 US BREAST BI LIMITED, 04/06/2024, 15:37 COMPARISON: MM TOMOSYNTHESIS SCREENING BI, 09/23/2023. MG MAMM SCREEN 3D SELENE CAD, 09/01/2022. MG MAMM SCREEN 3D SELENE CAD, 12/05/2020. INDICATIONS: Nipple Discharge Calculator Name [...] LUMP SHOULD BE BIOPSIED. Dictated by: Sayda Ann M.D. on 04/07/2024 at 08:29 Approved by: Sayda Ann M.D. on 04/07/2024 at 08:40 Dictated By: Sayda Ann M.D. Signed By: 04/07/2441 DD/ TD/TT: Admin Assistant:TBHRadiology, Radiologist, MD - 04/07/2024 [place] [address] Ultrasound Report Signed Patient: ARIADNA HALEY MR#: [id number] : 1980 Acct:[id number] Age/Sex: 43 / F ADM Date: 04/06/24 Loc: US Attending Dr: Luan Valdivia D.O. Ordering Physician: Luan Valdivia D.O. Date of Service: 04/06/24 Procedure(s): US breast BI limited Accession Number(s): [id number] cc: GAY DE LA TORRE ; Luan Valdivia D.O. Patient Name: ARIADNA HALEY MR#: [id number] : 1980 Exam Date: 04/06/2024 Ordering Doctor: DR Luan Valdivia . RADIOLOGY REPORT PROCEDURE: MM TOMOSYNTHESIS DIAGNOSTIC BI, 04/06/2024, 15:20 US BREAST BI LIMITED, 04/06/2024, 15:37 COMPARISON: MM TOMOSYNTHESIS SCREENING BI, 09/23/2023. MG MAMM SCREEN 3D SELENE CAD, 09/01/2022. MG MAMM SCREEN 3D SELENE CAD, 12/05/2020. INDICATIONS: Nipple Discharge Calculator Name [...] LUMP SHOULD BE BIOPSIED. Dictated by: Sayda Ann M.D. on 04/07/2024 at 08:29 Approved by: Sayda Ann M.D. on 04/07/2024 at 08:40 Dictated By: Sayda Ann M.D. Signed By: 04/07/2441 DD/ TD/TT: Admin Assistant: MABLE Rao PELVIS W/ TRANSVAGINALon 49-84-1967Icv[place]ld[place] [address] Ultrasound Report Signed Patient: ARIADNA HALEY MR#: [id number] : 1980 Acct:[id number] Age/Sex: 43 / F ADM Date: 04/06/24 Loc: LAB Attending Dr: Oly Plascencia Ordering Physician: Oly Plascencia Date of Service: 04/06/24 Procedure(s): US pelvis w/ transvaginal Accession Number(s): [id number] cc: GAY Mcpherson [place] [id number] Patient Name: ARIADNA HALEY MRN: [id number] date: 1980 Sex: F Assigned Patient Location: LAB Current Patient Location: Accession/Order Number: [id number] Exam Date: 04/06/2024 15:45 Report Date: 04/07/2024 04:48 At the request of: OLY PLASCENCIA Procedure: US pelvis w/ transvaginal EXAMINATION: US [...] cm benign-appearing cyst. Electronically authenticated by: SAYDA ANN Date: 04/07/2024 04:48 Dictated By: Sayda Ann M.D. Signed By: 04/07/24 0451 DD/ 0448 TD/TT: Admin Assistant:TBHRadiology, Radiologist, MD - 04/07/2024 The [place] [id number] Ultrasound Report Signed Patient: ARIADNA HALEY MR#: [id number] : 1980 Acct:[id number] Age/Sex: 43 / F ADM Date: 04/06/24 Loc: LAB Attending Dr: Oly Plascencia Ordering Physician: Oly Plascencia Date of Service: 04/06/24 Procedure(s): US pelvis w/ transvaginal Accession Number(s): [id number] cc: GAY Mcpherson The [address] [address] Patient Name: ARIADNA HALEY MRN: [id number] date: 1980 Sex: F Assigned Patient Location: LAB Current Patient Location: Accession/Order Number: [id number] Exam Date: 04/06/2024 15:45 Report Date: 04/07/2024 04:48 At the request of: OLY PLASCENCIA Procedure: US pelvis w/ transvaginal EXAMINATION: US [...] cm benign-appearing cyst. Electronically authenticated by: SAYDA ANN Date: 04/07/2024 04:48 Dictated By: Sayda Ann M.D. Signed By: 04/07/24 0451 DD/ 0448 TD/TT: Admin Assistant: MABLE HealthcareRadiology Study observation (narrative)NOM HealthcareUS PELVIS W/ TRANSVAGINALOrdered By: Radiologist Radiology on 68-91-9916CINZGolden Valley Memorial Hospital Work Phone: all CBC WITH AUTO DIFFon 87-32-7765SZWSXRWJW ABSOLUTE AUTO0.1NOMS HealthcareBasophils/100 WBC (Bld)0.4 %0.2 - 2.0 %[facility] Eosinophils/100 WBC (Bld)0.4 %Low0.9 - 7.0 %NOM HealthcareErythrocyte distribution width (RBC) [Ratio]15.1 %High11.0 - 15.0 %NOMS HealthcareHematocrit (Bld) [Volume fraction]39.7 %36.0 - 48.0 %NOM HealthcareHemoglobin (Bld) [Mass/Vol]13 g/dL12.0 - 16.0 g/dLNODE HealthcareIMMATURE GRANULOCYTES ABS AUTO 0.1HighNOMS HealthcareImmature granulocytes/100 WBC (Bld)0.9 %High0.0 - 0.5 % [facility] HospitalInterpretation and review of laboratory resultsAbnormEvangelical Community HospitalLYMPHOCYTES ABSOLUTE AUTO2.1NOMS [facility] HospitalLymphocytes/100 WBC (Bld) 18.4 %Low20.5 - 60.0 %[facility] HospitalH (RBC) [Entitic mass]30.9 pg26.7 - 34.0 pgGolden Valley Memorial HospitalMCHC (RBC) [Mass/Vol]32.7 g/dL29.9 - 35.2 g/dLGolden Valley Memorial Hospital MCV (RBC) [Entitic vol]94.3 fL81.0 - 99.0 fLGolden Valley Memorial HospitalMONOCYTES ABSOLUTE AUTO0.8[facility] HospitalMonocytes/100 WBC (Bld)6.7 %1.7 - 12.0 %[facility] NEUTROPHILS ABSOLUTE AUTO8.3HighGolden Valley Memorial HospitalNeutrophils/100 WBC (Bld)73.2 % 43.0 - 75.0 %[facility] HospitalPlatelet mean volume (Bld) [Entitic vol]10.1 fL9.5 - 13.5 fLGolden Valley Memorial HospitalTB EO #0.1NOMS [facility] HospitalTB GXS769QAUIKindred Hospital RBC 4.21NOKindred Hospital WBC11.4HBurnett Medical CenterCLINISYNCNWright Memorial Hospital THYROID STIM HORMONEon 12-46-9970Lozxvszjpidfvl and review of laboratory results AbnormalSaint John's Saint Francis Hospital Qn0.333 m[IU]/LLowCarondelet Health THYROXINE (T4) FREEon 59-68-4663Tetr T4 [Mass/Vol]1.01 ng/dL0.76 - 1.46 ng/dLGolden Valley Memorial Hospital CLINISYNCGolden Valley Memorial HospitalCCF APTTon 71-78-4237zDPU Coag (Bld) [Time]25.6 [facility] HospitalMLR HEMOGLOBIN A1Con 59-53-9156Glnjodo [Mass/Vol]134 mg/dLGolden Valley Memorial HospitalHbA1c (Bld) [Mass fraction]6.3 %High4.5 - 6.2 %[facility] HospitalComment on above:ADA RECOMMENDED LIMIT 4.0 - 6.0 ADA THERAPEUTIC TARGET < 7.0 ACTION SUGGESTED > 7.0 Interpretation and review of laboratory resultsAbnormalNOMS HealthcareCLINISYNC NOMS HealthcareNo Panel Informationon 80-57-9010XZHPGLFJLMCFV Healthcare CLINISYNCNOSoutheast Missouri Community Treatment CenterOH PROTHROMBIN TIME INR W/O COUMon 31-01-9482NW Coag (PPP) [Time]9.6 sNMEMORIAL HOSPITAL [facility] ST[facility] HealthcareTBH INR<0.93NOMS HealthcareComment on above: DESIRED INR: 2.0-3.0 CONDITIONS NOT LISTED BELOW 2.5-3.5 FOR PROSTHETIC HEART VALVE REPLACEMENT 2.5-3.5 RECURRENT THROMBOSIS TBH PREG QUANT HCGon 76-77-0232RXB QUANTITATIVE<1mIU/mLNOMS HealthcareComment on above:5-50 0.2-1 WEEK 50-500 1-2 WEEKS 100-5,000 2-3 WEEKS 500-10,000 3-4 WEEKS 1,000-50,000 4-5 WEEKS 10,000-100,000 5-6 WEEKS 15,000-200,000 6-8 WEEKS 10,000-100,000 2-3 MONTHS CNPNon 12-31-0375BVUBQvygafNhwglgtom Clinic ClevelandHCG ( test) Ql (U) on 21-60-1123Jynquzadpygsyi and review of laboratory resultsNormalGolden Valley Memorial HospitalPreg Test, UrNegativeNegativeNOProgress West Hospital HealthcareUrinalysis macro (dipstick) panel (U)on 75-55-8612Mxppruxoe, UANegativeNegative - 4(70) +++ mg/dLNOMS HealthcareBlood, UAPositiveNegative - 50 Dusty/mcLNOMS Healthcare Comment on above:largeClarity, UACloudyNOMS HealthcareColor, UADark AmberNOMS HealthcareGlucose, UAPositiveNegative - 1999(110) ++++ mg/dLNOMS Healthcare Comment on above:100 mgInterpretation and review of laboratory resultsAbrmEleanor Slater Hospital HealthcareKetones, UANegativeNegative - 160(16) ++++ mg/dLNOMS Healthcare Leukocytes, UAPositiveNegative - 500+++ Andi/mcLNOMS HealthcareComment on above: smallNitrite, UANegativeNegative - PositiveNOMS HealthcarepH, UA5.55 - 9NOMS HealthcareProtein, UAPositiveNegative - 1999(20) ++++ mg/dLNOMS Healthcare Comment on above:30 mgSpec Grav, UA1.031 - 1.03NOMS HealthcareUrobilinogen, UA 0.20.2 - 12 mg/dLNOMS HealthcareNOMS HealthcareOffice Visiton 80-89-0177Npzvfe- up [id number] Ariadna Haley Melissa 1980 F Date Provider Department Center 03/08/2024 271-[facility] Family History Problem Relation Age of Onset Heart failure Maternal Grandmother Heart attack Maternal Grandfather Family Status - Relation Status Age at Maternal Grandmother Maternal Grandfather Level of Service:[address] [place] OFFICE/OUTPATIENT NEW MODERATE MDM 45 MINUTESNormal [facility] CenterHCG ( test) IA.rapid Ql (U)Ordered By: Adolfo Kang on 82-10-3165OIH ( test) Ql (U)NegativeThe Bellevue HospitalALL DEHYDROEPIANDROSTERONEon 46-48-1578OBMU, SERUM25 ng/uLJwwuawmm77 - 701 ng/dLNOMS HealthcareComment on above:This test was developed and its performance characteristics determined by [facility]. It has not been cleared or approved by the Food and Drug Administration. Performed at: [address] [id number] Field Reimbursement Manager: Senait Hardin MD, Phone: [phone] Interpretation and review of laboratory resultsAbnormalNOMS HealthcareCLINISYNC NOMS HealthcareALL DHEA SULFATEon 68-90-3109DXOG-DLAZBNF92.4 ug/pLYpjyffjz96.3 - 279.2 ug/dLNOMS HealthcareALL FOLLICLE STIMULATING HORMONEon 38-87-4280JPW36.0. mIU/mLNOMS HealthcareComment on above:Adult Female Range Follicular phase 3.5 - 12.5 Ovulation phase 4.7 - 21.5 Luteal phase 1.7 - 7.7 Postmenopausal 25.8 - 134.8 ALL LUTEINIZING HORMONEon 44-31-3739ZOBQZWWZNZM HORMONE(LH)24.9. mIU/mLNOMS HealthcareComment on above:Adult Female Range Follicular phase 2.4 - 12.6 Ovulation phase 14.0 - 95.6 Luteal phase 1.0 - 11.4 Postmenopausal 7.7 - 58.5 No Panel Informationon 88-45-0092Tjrkkkxgplkxck and review of laboratory results AbnormalNOMS HealthcareCLINISYNCNOMS HealthcareTBH PROLACTINon 11-19-2023 PROLACTIN4.7 ng/mLAbnormal4.8 - 33.4 ng/mLNOMS HealthcareComment on above: Performed at: - [facility] [id number] Field Reimbursement Manager: Doyle Mendenhall PhD, Phone: [phone] US PELVIS W/ TRANSVAGINALon 06-86-8777FgwMil[place] [address] Ultrasound Report Signed Patient: ARIADNA HALEY MR#: [id number] : 1980 Acct:[id number] Age/Sex: 43 / F ADM Date: 11/18/23 Loc: US Attending Dr: Luan Valdivia D.O. Ordering Physician: Luan Valdivia D.O. Date of Service: 11/18/23 Procedure(s): US pelvis w/ transvaginal Accession Number(s): [id number] cc: GAY DE LA TORRE ; Luan Valdivia D.O. [place] [id number] Patient Name: ARIADNA HALEY MRN: [id number] date: 1980 Sex: F Assigned Patient Location: US Current Patient Location: US Accession/Order Number: [id number] Exam Date: 11/18/2023 14:00 Report Date: 11/18/2023 [...] Signed By: 11/18/23 1642 DD/ 1639 TD/TT: Admin Assistant:TBHRadiology, Radiologist, MD - 11/18/2023 [place] [address] Ultrasound Report Signed Patient: ARIADNA HALEY MR#: [id number] : 1980 Acct:[id number] Age/Sex: 43 / F ADM Date: 11/18/23 Loc: US Attending Dr: Luan Valdivia D.O. Ordering Physician: Luan Valdivia D.O. Date of Service: 11/18/23 Procedure(s): US pelvis w/ transvaginal Accession Number(s): [id number] cc: GAY DE [place] T[facility] ; Luan Valdivia D.O. The [place] [id number] Patient Name: ARIADNA HALEY MRN: [id number] date: 1980 Sex: F Assigned Patient Location: [place] Current Patient Location: [place] Accession/Order Number: [id number] Exam Date: 11/18/2023 14:00 Report Date: 11/18/2023 [...] Signed By: 11/18/23 1642 DD/ 1639 TD/TT: Admin Assistant: [facility] HealthcareRadiology Study observation (narrative)[facility] HealthcareUS PELVIS W/ TRANSVAGINALOrdered By: Radiologist Radiology on [id number] Work Phone: no Panel InformationOrdered By: Radiologist Radiology on [id number] Valley Memorial Hospital Work Phone: no Panel Informationon [id number] Study observation (narrative)[facility] HealthcareXR LUMBAR SPINE MIN 4Von [id number] [id number] XRay Report Signed Patient: ARIADNA HALEY MR#: [id number] : 1980 Acct:[id number] Age/Sex: 42 / F ADM Date: 09/28/23 Loc: [facility] Attending Dr: ZITA CUELLAR Ordering Physician: ZITA CUELLAR Date of Service: 09/28/23 Procedure(s): XR lumbar spine min 4V Accession Number(s): [id number] cc: GAY DE LA TORRE ; ZITA CUELLAR [address] [address] Patient Name: ARIADNA HALEY MRN: [id number] date: 1980 Sex: F Assigned Patient Location: [facility] Current Patient Location: Accession/Order Number: [id number] Exam Date: 09/28/2023 14:41 Report Date: 09/29/2023 07:22 At the request of: ZITA CUELLAR Procedure: XR lumbar spine min 4V EXAMINATION: [...] M.D. Signed By: 09/29/23724 DD/ 1 TD/TT: Admin Assistant:TBHRadiology, Radiologist, - 09/29/2023 [place] [address] XRay Report Signed Patient: ARIADNA HALEY MR#: [id number] : 1980 Acct:[id number] Age/Sex: 42 / F ADM Date: 09/28/23 Loc: [facility] Attending Dr: ZITA CUELLAR Ordering Physician: ZITA CUELLAR Date of Service: 09/28/23 Procedure(s): XR lumbar spine min 4V Accession Number(s): [id number] cc: GAY DE LA TORRE ; ZITA CUELLAR [address] [place] [address] Patient Name: ARIADNA HALEY MRN: [id number] date: 1980 Sex: F Assigned Patient Location: [facility] Current Patient Location: Accession/Order Number: [id number] Exam Date: 09/28/2023 14:41 Report Date: 09/29/2023 07:22 At the request of: ZITA CUELLAR Procedure: XR lumbar spine min 4V EXAMINATION: [...] M.D. Signed By: 09/29/23724 DD/ 1 TD/TT: Admin Assistant: MABLE [facility] SP[facility] 3Von 55-54[place] [address] XRay Report Signed Patient: ARIADNA HALEY MR#: [id number] : 1980 Acct:[id number] Age/Sex: 42 / F ADM Date: 09/28/23 Loc: RAD Attending Dr: ZITA CUELLAR Ordering Physician: ZITA CUELLAR Date of Service: 09/28/23 Procedure(s): XR thoracic spine 3V Accession Number(s): [id number] cc: GAY DE LA TORRE ; ZITA CUELLAR [place] [address] Patient Name: ARIADNA HALEY MRN: [id number] date: 1980 Sex: F Assigned Patient Location: [facility] Current Patient Location: Accession/Order Number: [id number] Exam Date: 09/28/2023 14:43 Report Date: 09/29/2023 07:22 At the request of: ZITA CUELALR Procedure: XR thoracic spine 3V EXAMINATION: XR [...] M.D. Signed By: 09/29/23724 DD/ 1 TD/TT: Admin Assistant:DARLENEHRadiology, Radiologist, - 09/29/2023 [place] [address] XRay Report Signed Patient: ARIADNA HALEY MR#: [id number] : 1980 Acct:[id number] Age/Sex: 42 / F ADM Date: 09/28/23 Loc: [facility] Attending Dr: ZITA CUELLAR Ordering Physician: ZITA CUELLAR Date of Service: 09/28/23 Procedure(s): XR thoracic spine 3V Accession Number(s): [id number] cc: GAY DE LA TORRE ; ZITA CUELLAR [address] [place] [address] Patient Name: ARIADNA HALEY MRN: [id number] date: 1980 Sex: F Assigned Patient Location: [facility] Current Patient Location: Accession/Order Number: [id number] Exam Date: 09/28/2023 14:43 Report Date: 09/29/2023 07:22 At the request of: ZITA CUELLAR Procedure: XR thoracic spine 3V EXAMINATION: XR [...] M.D. Signed By: 09/29/23724 DD/ 1 TD/TT: Admin Assistant: MABLE [facility] HospitalLINDA [address] [place] 27-07-9419IDA revealed normal sinus rhythmCPSheltering Arms Hospital Work Phone: cbc AUTO DIFFon 34-99-5472YVEF #0.1 103/ulNormal 0.0-0.1The [facility] SystemComment on above:Performed By: #### UAMIC #### [facility] [address] [place] [address] Dr. Manda YorkBasophils/100 WBC (Bld)0.6 %Normal0.2-2.0[facility] Comment on above:Performed By: #### UAMIC #### [facility] [address] [address] [address] Manda Shafer #0.1 103/ulNormal0.0-0.7The [facility] SystemComment on above: Performed By: #### UAMIC #### [facility] [address] [address] [address] Manda Noonanosinophils/100 WBC (Bld)0.6 %Critically low0.9-7.0The [facility] SystemComment on above:Performed By: #### UAMIC #### [facility] [address] [address] [address] Manda Noonanrythrocyte distribution width (RBC) [Ratio]14.6 %Wkxfax19.0-15.0 The [facility] SystemComment on above:Performed By: #### UAMIC #### [facility] [address] [address] [address] Manda YorkHematocrit (Bld) [Volume fraction]43.4 %Fsgxoh93.0-48.0The [facility] SystemComment on above:Performed By: #### UAMIC #### [facility] [address] [place] [address] Dr. Manda YorkHemoglobin (Bld) [Mass/Vol]13.7 g/fILitelq04.0-16.0The [facility] Lea HospitalComment on above:Performed By: #### UAMIC #### [facility] [address] [place] [address] Dr. Manda Calderon #0.12 10e3/ulCritically high0.00-0.03[facility] Comment on above:Performed By: #### UAMIC #### [facility] [address] [place] [address] Dr. Manda YorkIG %0.8 %Critically high0.0-0.5The [facility] SystemComment on above:Performed By: #### UAMIC #### [facility] [address] [place] [address] Dr. Manda Lgauna #2.6 103/ulNormal1.2-3.8The [facility] SystemComment on above:Performed By: #### UAMIC #### [facility] [address] [place] [address] Dr. Manda Kasperhocytes/100 WBC (Bld)18.3 %Critically low20.5-60.0The [facility] SystemComment on above:Performed By: #### UAMIC #### [facility] [address] [place] [address] Dr. Manda YorkMANUAL DIFF REQNONormalThe [facility] Health SystemComment on above: Performed By: #### UAMIC #### [facility] [address] [place] [address] Dr. Manda Gil (RBC) [Entitic mass]29.0 alSclmvs40.7-34.0The [facility] SystemComment on above:Performed By: #### UAMIC #### [facility] [address] [place] [address] Dr. Manda CardosoHC (RBC) [Mass/Vol]31.6 g/xIVwvbvz69.9-35.2The [facility] SystemComment on above:Performed By: #### UAMIC #### [facility] [address] [place] [address] Dr. Manda CardosoV (RBC) [Entitic vol]91.8 hTQrrbdp75.0-99.0The [facility] SystemComment on above:Performed By: #### UAMIC #### [facility] [address] [place] [address] Dr. Manda Maciel #0.7 103/ulNormal0.3-0.8The [facility] SystemComment on above:Performed By: #### UAMIC #### [facility] [address] [place] [address] Dr. Manda Coteocytes/100 WBC (Bld)5.1 %Normal1.7-12.0[facility] Comment on above:Performed By: #### UAMIC #### [facility] [address] [place] [address] Dr. Manda Claudio #10.6 103/ulCritically high1.4-6.5[facility] Comment on above:Performed By: #### UAMIC #### [facility] [address] [place] [address] Dr. Manda Longutrophils/100 WBC (Bld)74.6 %Cadcqj87.0-75.0The [facility] SystemComment on above:Performed By: #### UAMIC #### [facility] [address] [place] [address] Dr. Manda Ferreiralet mean volume (Bld) [Entitic vol]9.4 fLCritically low 9.5-13.5The [facility] SystemComment on above:Performed By: #### UAMIC #### [facility] [address] [place] [address] Dr. Manda YorkPLT307 103/azFukkyb100-048[facility] on above: Performed By: #### UAMIC #### [facility] [address] [place] [address] Dr. Manda YorkRBC4.73 106/ulNormal4.20-5.40[facility] on above:Performed By: #### UAMIC #### [facility] [address] [place] [address] Dr. Manda YorkWBC14.2 103/ulCritically high4.0-11.0The [facility] SystemComformerly [facility] on above:Performed By: #### UAMIC #### [facility] [address] [place] [address] Dr. Manda YorkFREE T4on 18-78-2016Dtbh T4 [Mass/Vol]1.31 ng/dLNormal0.76-1.46 The [facility] SystemComformerly [facility] on above:Performed By: #### FT4 #### [facility] [address] [place] [address] Dr. Manda YorkGLYCOHEMOGLOBIN A1Con 71-10-6276WOP RECOMMENDATIONSEE BELOWNormal The [facility] SystemComment on above:Result Comment: ADA RECOMMENDED LIMIT 4.0 - 6.0 ADA THERAPEUTIC TARGET < 7.0 ACTION SUGGESTED > 7.0Performed By: #### A1C #### [facility] [address] [place] [address] Dr. Manda YorkGlucose [Mass/Vol]120 mg/dLNormalThe [facility] on above:Performed By: #### A1C #### [facility] [address] [place] [address] Dr. Manda YorkHbA1c (Bld) [Mass fraction]5.8 %Normal4.5-6.2The [facility] SystemComformerly [facility] on above:Performed By: #### A1C #### [facility] [address] [place] [address] Dr. Manda YorkPREG QUANT HCGon 82-35-5432GXW QUANT<1NormalThe [facility] Comment on above:Performed By: #### FT4 #### [facility] [address] [place] [address] Anthony's HospitalComment on above: Result Comment: 5-50 0.2-1 WEEK 50-500 1-2 WEEKS 100-5,000 2-3 WEEKS 500-10,000 3-4 WEEKS 1,000-50,000 4-5 WEEKS 10,000-100,000 5-6 WEEKS 15,000-200,000 6-8 WEEKS 10,000-100,000 2-3 MONTHSPerformed By: #### FT4 #### [facility] [address] [place] [address] Dr. Manda Reagan 72-48-4937SED Coag (PPP) [Relative time]{INR}NormalThe [facility] Health SystemComment on above:Performed By: #### FT4 #### [facility] [address] [place] [address] Dr. Manda Bah [facility] BELOWProMedica Defiance Regional HospitalComment on above:Result Comment: DESIRED INR: 2.0 - 3.0 CONDITIONS NOT LISTED BELOW 2.5 - 3.5 FOR PROSTHETIC HEART VALVE REPLACEMENT 2.5 - 3.5 RECURRENT THROMBOSIS Performed By: #### FT4 #### [facility] [address] [place] [address] Dr. Manda YorkPT Coag (PPP) [Time]9.6 sNormal9.0-11.6[facility] Comment on above:Performed By: #### FT4 #### [facility] [address] [place] [address] Dr. Manda Crews 62-17-5504oZIP Coag (Bld) [Time]28.2 jWymslr27.3-36.2The [facility] SystemComment on above:Performed By: #### FT4 #### [facility] [address] [place] [address] Dr. Manda Fowler 41-60-9167DWI7.300 uIU/mLCritically low0.358-3.740The [facility] SystemComment on above:Performed By: #### FT4 #### [facility] [address] [place] [address] Dr. Manda Post PELVIS TRANSVAGon 29-19-8734ME PELVIS TRANSVAGEXAMINATION: US PELVIS TRANSVAG HISTORY: Excessive [...] Electronically authenticated by: AURORA SHAIKH Date: 2022-09-24 17:50[facility] ACOG PANEL 2: 30 to 65on 09-18-2022..NormalThe [facility] Health SystemComment on above:Result Comment: Performed at: WBPerformed By: #### FT4 #### [facility] [address] [place] [address] Dr. Manda Ceballos Gdln ACOG Irrkmst06-74DkkzxnEsaKnox Community HospitalComment on above:Performed By: #### FT4 #### [facility] [address] [place] [address] Dr. Manda YorkDIAGNOSIS:CommentProMedica Defiance Regional HospitalComment on above: Result Comment: NEGATIVE FOR INTRAEPITHELIAL LESION OR MALIGNANCY. Performed at: WBPerformed By: #### FT4 #### [facility] [address] [place] [address] Dr. Manda YorkHPV AptimaNegativeNormalNegativeSelect Medical Cleveland Clinic Rehabilitation Hospital, BeachwoodComment on above:Result Comment: This nucleic acid amplification test detects fourteen high-risk HPV types (16,18,31,33,35,39,45,51,52,56,58,59,66,68) without differentiation. Performed at: =GPerformed By: #### FT4 #### [facility] [address] [place] [address] Dr. Manda YorkHPV Genotype ReflexCommentTriHealth Bethesda North Hospital on above:Result Comment: Criteria not met, HPV Genotype not performed. Performed at: WBPerformed By: #### FT4 #### [facility] [address] [place] [address] Dr. Manda YorkMethodology:CommentTriHealth Bethesda North Hospital on above: Result Comment: This liquid based ThinPrep(R) pap test was screened with the use of an image guided system. Performed at: WBPerformed By: #### FT4 #### [place] [address] Dr[address] Manda YorkNote:CommentTriHealth Bethesda North Hospital on above:Result Comment: The Pap smear is a screening test designed to aid in the detection of premalignant and malignant conditions of the uterine cervix. It is not a diagnostic procedure and should not be used as the sole means of detecting cervical cancer. Both false-positive and false-negative reports do occur. . Performed at: WBPerformed By: #### FT4 #### [place] [address] Dr[address] Manda YorkPerformed by:CommentNoLouis Stokes Cleveland VA Medical Center on above: Result Comment: Charles Peters, Medicine And Health Service Manager (ASCP) Performed at: WBPerformed By: #### FT4 #### [facility] [address] [place] [address] Dr. Manda YorkSpecimen adequacy:CommentTriHealth Bethesda North Hospital on above:Result Comment: Satisfactory for evaluation. Endocervical and/or squamous metaplastic cells (endocervical component) are present. Performed at: WBPerformed By: #### FT4 #### [facility] [address] [place] [address] Dr. Manda YorkCytology Cervical or vaginal smear or scraping studyOrdered By: Hazel Torres on 51-01-2647VIRA HealthcareMG MAMM SCREEN 3D SELENE CADon 41-12-8822IH MAMM SCREEN 3D SELENE CADPatient: ARIADNA HALEY Exam Date: 09/01/2022 : 1980 Gender:F Ordering : DR MANUEL FERRIS . Admission #: [id number] Family : Order #: [id number] CLICK HERE TO VIEW EXAM RADIOLOGY REPORT [...] [facility] BREAST COMPOSITION: Scattered areas fibroglandular [...] LUMP SHOULD BE BIOPSIED. Dictated by: Sayda Ann M.D. on 09/02/2022 at 12:26 Approved by: Sayda Ann M.D. on 09/02/2022 at 12:32[facility] HospitalMRI KNEE RT WO CONon 23-35-7814BIJ KNEE RT WO CONHISTORY: Right knee pain [...] Electronically authenticated by: MANUEL READER Date: 2022-04-01 08:24[facility] Regional HospitalPNEUMOCOCCAL IGG ABS, 23 SEROTYPESon 02-26-1321Ziqchxnjwblv InterpretationSNewark Hospital. pneumoniae 1 IgG (S) [Mass/Vol]0.27 ug/mLCleveland ClinicS. pneumoniae 12 IgG (S) [Mass/Vol]0.08 ug/mLCleveland ClinicS. pneumoniae 14 IgG (S) [Mass/Vol]0.19 ug/mLCleveland ClinicS. pneumoniae 17 IgG (S) [Mass/Vol]1.72 ug/mLCleveland ClinicS. pneumoniae 19 IgG (S) [Mass/Vol]1.52 ug/mLCleveland ClinicS. pneumoniae 2 IgG (S) [Mass/Vol]0.44 ug/mL [facility]. pneumoniae 20 IgG (S) [Mass/Vol]1.53 ug/mLCleveland ClinicS. pneumoniae 22 IgG (S) [Mass/Vol]0.99 ug/mLCleveland ClinicS. pneumoniae 23 IgG (S) [Mass/Vol]0.14 ug/mLCleveland ClinicS. pneumoniae 3 IgG (S) [Mass/Vol]0.36 ug/mLCleveland ClinicS. pneumoniae 34 IgG (S) [Mass/Vol]5.77 ug/mLCleveland ClinicS. pneumoniae 4 IgG (S) [Mass/Vol]0.06 ug/mLCleveland ClinicS. pneumoniae 43 IgG (S) [Mass/Vol]0.93 ug/mLCleveland ClinicS. pneumoniae 5 IgG (S) [Mass/Vol]0.89 ug/mLCleveland ClinicS. pneumoniae 8 IgG (S) [Mass/Vol]0.58 ug/mL [facility]. pneumoniae 9 IgG (S) [Mass/Vol]0.4 ug/mLCleveland ClinicS. pneumoniae Latvian type 15B IgG (S) [Mass/Vol]8.27 ug/mLCleveland ClinicS. pneumoniae Latvian type 18C IgG (S) [Mass/Vol]0.39 ug/mLCleveland ClinicS. pneumoniae Latvian type 19A IgG (S) [Mass/Vol]17.72 ug/mLCleveland ClinicS. pneumoniae Latvian type 33F IgG (S) [Mass/Vol]3.04 ug/mLCleveland ClinicS. pneumoniae Latvian type 6B IgG (S) [Mass/Vol]0.82 ug/mLCleveland ClinicS. pneumoniae Latvian type 7F IgG (S) [Mass/Vol]0.34 ug/mLCleveland ClinicS. pneumoniae Latvian type 9V IgG (S) [Mass/Vol]0.78 ug/mLCleveland ClinicXR KNEE RT 4V or >on 22-56-0211GS KNEE RT 4V or >IMAGES REVIEWED: XR KNEE RT 4V or > COMPARISON: None available. CLINICAL INDICATION: Injury of right knee FINDINGS/IMPRESSION: 1. No evidence of acute osseous abnormality of the right knee. 2. Nonspecific small suprapatellar effusion. 3. Mild anterior infrapatellar knee soft tissue swelling. Electronically authenticated by: KRISTINA GARRETT Date: 2022-03-21 16:47[facility] Regional HospitalDIPHTHER/TETANUS ABon 03-20-2022. diphtheriae IgG Qn (S)0.1 IU/mLCleveland Long Prairie [facility]. tetani toxoid IgG IA Qn1 IU/mLCleveland ClinicIGA BLDon 19-36-2937DiM [Mass/Vol]182 mg/dL70 - 400 mg/dLDetwiler Memorial HospitalIGE BLDon 02-62-8972WxI Qn12.3 kU/l<114.0 kU/lCleveland ClinicIGGon 22-22-6032ZbI [Mass/Vol]618 mg/xNRkb021 - 1,600 mg/dLDetwiler Memorial HospitalIGMon 41-56-1465BpD [Mass/Vol]514 mg/rDZjaw46 - 230 mg/dLDetwiler Memorial HospitalImmunodeficiency panel FC (Bld)on 84-83-2855CM7 cells (Bld) [#/Vol]2841 cells/dXOlfl142 - 2,388 cells/uL [facility] HospitalCD3 cells/100 cells (Bld)81 %60 - 89 %[facility] HospitalCD3+CD4+ (T4 helper) cells (Bld) [#/Vol]1621 cells/uL533 - 1,674 cells/uLDetwiler Memorial Hospital CD3+CD4+ (T4 helper) cells/100 cells (Bld)46 %34 - 61 %[facility] HospitalCD3+CD4+ (T4 helper) cells/CD3+CD8+ (T8 suppressor cells) cells (Bld) [# ratio]1.55 %1.10 - 3.25Detwiler Memorial HospitalCD3+CD8+ (T8 suppressor cells) cells (Bld) [#/Vol]1049 cells/gPRtdv862 - 958 cells/uLDetwiler Memorial HospitalCD3+CD8+ (T8 suppressor cells) cells/100 cells (Bld)30 %10 - 41 %[facility] HospitalCD3-CD16+CD56+ (Natural killer) cells (Bld) [#/Vol]193 cells/uL102 - 565 cells/uLDetwiler Memorial HospitalCD3- CD16+CD56+ (Natural killer) cells/100 cells (Bld)5 %5 - 25 %[facility] HospitalCD3- CD19+ cells (Bld) [#/Vol]475 cells/uL75 - 660 cells/uLDetwiler Memorial HospitalCD3-CD19+ cells/100 cells (Bld)13 %5 - 22 %[facility] W Auto Differential panel (Bld)on 66-08-9456Yhmoknoog (Bld) [#/Vol]0.07 10*3/uL<0.11 k/uLDetwiler Memorial Hospital Basophils/100 WBC (Bld)0.6 %[facility] HospitalDifferential cell count method Nom (Bld)AutoCleveland ClinicEosinophils (Bld) [#/Vol]0.18 10*3/uL<0.46 k/uL [facility] HospitalEosinophils/100 WBC (Bld)1.6 %[facility] HospitalErythrocyte distribution width (RBC) [Ratio]14.6 %11.5 - 15.0 %[facility] HospitalHematocrit (Bld) [Volume fraction]40.5 %36.0 - 46.0 %[facility] HospitalHemoglobin (Bld) [Mass/Vol]13.0 g/dL11.5 - 15.5 g/dLDetwiler Memorial HospitalImmature granulocytes (Bld) [#/Vol]0.06 10*3/uL<0.10 k/uLDetwiler Memorial HospitalImmature granulocytes/100 WBC (Bld) 0.5 %[facility] Memorial HospitalLymphocytes (Bld) [#/Vol]2.97 10*3/uL1.00 - 4.00 k/uL [facility] HospitalLymphocytes/100 WBC (Bld)26.9 %[facility] Medical CenterH (RBC) [Entitic mass]28.4 pg26.0 - 34.0 pgClevelSt. Gabriel HospitalHC (RBC) [Mass/Vol]32.1 g/dL30.5 - 36.0 g/dLUniversity Hospitals Beachwood Medical CenterV (RBC) [Entitic vol]88.4 fL80.0 - 100.0 fLCleveland Tyler HospitalMonocytes (Bld) [#/Vol]0.79 10*3/uL<0.87 k/uLDetwiler Memorial Hospital Monocytes/100 WBC (Bld)7.2 %[facility] Memorial HospitalNeutrophils (Bld) [#/Vol]6.97 10*3/uL1.45 - 7.50 k/uLCleveland ClinicNeutrophils/100 WBC (Bld)63.2 %[facility] Memorial HospitalNucleated RBC (Bld) [#/Vol]<0.01 k/uLDetwiler Memorial HospitalNucleated RBC/100 WBC (Bld) [Ratio]0.0 /100 WBCDetwiler Memorial HospitalPlatelet mean volume (Bld) [Entitic vol]9.9 fL9.0 - 12.7 fLCOhio Valley Surgical HospitalPlatelets (Bld) [#/Vol]314 10*3/uL150 - 400 k/uLDetwiler Memorial HospitalRBC (Bld) [#/Vol]4.58 10*6/uL3.90 - 5.20 m/uLDetwiler Memorial HospitalWBC (Bld) [#/Vol]11.04 10*3/uLHigh3.70 - 11.00 k/[facility] ECHOCARDIO M/2D COMPLETEon 79-59-6697DNRSBWPHAD M/2D COMPLETEPatient: ARIADNA HALEY Exam Date: 03/12/2022 : 1980 Gender:F Ordering : DR MANUEL FERRIS . Admission #: [id number] Family : Order #: [id number] CLICK HERE TO VIEW EXAM ECHOCARDIOGRAM REPORT [...] by: Calos Arce M.D. on 03/16/2022 at 16:47NormalThAshtabula General HospitalINSULINon 54-22-5036Tbjykjn16.8 uIU/mLNormal2.6-24.9[facility], BeachwoodComment on above:Performed By: #### CBC #### [facility] [address] [place] [address] Dr. Manda Bruce AUTO DIFFon 33-40-5600BFIY #0.1 103/ulNormal0.0-0.1[facility], BeachwoodComment on above:Performed By: #### CBC #### [facility] [address] [place] [address] Dr. Manda YorkBasophils/100 WBC (Bld)0.4 %Normal0.2-2.0[facility] [place] Comment on above:Performed By: #### CBC #### [facility] [address] [place] [address] Dr. Manda Shafer #0.2 103/ulNormal0.0-0.7The [facility] SystemComment on above: Performed By: #### CBC #### [facility] [address] [place] [address] Dr. Manda Noonanosinophils/100 WBC (Bld)1.2 %Normal0.9-7.0[facility] [place] Comment on above:Performed By: #### CBC #### [facility] [address] [place] [address] Dr. Manda Noonanrythrocyte distribution width (RBC) [Ratio]14.6 %Zpjdvx29.0-15.0 [facility], BeachwoodComment on above:Performed By: #### CBC #### [facility] [address] [place] [address] Dr. Yilan ChangHematocrit (Bld) [Volume fraction]39.2 %Ulhelh01.0-48.0[facility] SystemComment on above:Performed By: #### CBC #### [facility] [address] [place] [address] Dr. Manda YorkHemoglobin (Bld) [Mass/Vol]12.7 g/dLVjhlgy89.0-16.0The [facility] Lea HospitalComment on above:Performed By: #### CBC #### [facility] [address] [place] [address] Dr. Manda YorkIG #0.06 10e3/ulCritically high0.00-0.03[facility] Comment on above:Performed By: #### CBC #### [facility] [address] [place] [address] Dr. Manda YorkIG %0.5 %Normal0.0-0.5The [facility] SystemComment on above: Performed By: #### CBC #### [facility] [address] [place] [address] Dr. Manda Laguna #3.7 103/ulNormal1.2-3.8[facility] SystemComment on above:Performed By: #### CBC #### [facility] [address] [place] [address] Dr. Manda Kasperhocytes/100 WBC (Bld)31.0 %Zcooch68.5-60.0[facility] SystemComment on above:Performed By: #### CBC #### [facility] [address] [place] [address] Dr. Manda YorkMANUAL DIFF REQNONormalThe [facility] SystemComment on above: Performed By: #### CBC #### [facility] [address] [place] [address] Dr. Manda Gil (RBC) [Entitic mass]28.9 xlFpnclf77.7-34.0[facility] SystemComment on above:Performed By: #### CBC #### [facility] [address] [place] [address] Dr. Manda Koch (RBC) [Mass/Vol]32.4 g/hMPznegn96.9-35.2The [facility] SystemComment on above:Performed By: #### CBC #### [facility] [address] [address] [address] Manda Bradshaw (RBC) [Entitic vol]89.1 zCHcelym11.0-99.0[facility] SystemComment on above:Performed By: #### CBC #### [facility] [address] [place] [address] Dr. Manda Maciel #0.7 103/ulNormal0.3-0.8[facility] SystemComment on above:Performed By: #### CBC #### [facility] [address] [place] [address] Dr. Manda Coteocytes/100 WBC (Bld)5.8 %Normal1.7-12.0[facility] [place] Comment on above:Performed By: #### CBC #### [facility] [address] [place] [address] Dr. Manda Claudio #7.3 103/ulCritically high1.4-6.5[facility] Comment on above:Performed By: #### CBC #### [facility] [address] [place] [address] Dr. Manda Longutrophils/100 WBC (Bld)61.1 %Hwdkfu96.0-75.0[facility] SystemComment on above:Performed By: #### CBC #### [facility] [address] [place] [address] Dr. Manda Ferreiralet mean volume (Bld) [Entitic vol]9.7 fLNormal9.5-13.5The [facility] Health SystemComment on above:Performed By: #### CBC #### [facility] [address] [place] [address] Dr. Manda YorkPLT297 103/skTziodv625-484Qdg [facility] SystemComment on above: Performed By: #### CBC #### [facility] [address] [address] [address] Manda YorkRBC4.40 106/ulNormal4.20-5.40The [facility] SystemComment on above:Performed By: #### CBC #### [facility] [address] [place] [address] Dr. Manda oYrkWBC12.0 103/ulCritically high4.0-11.0The [facility] SystemComment on above:Performed By: #### CBC #### [facility] [address] [place] [address] Dr. Manda YorkFRADAMA THYROXINE INDEX T7on 00-35-4036GDY1.84Ltvdrh6.30-4.50The [facility] SystemComment on above:Performed By: #### UAMIC #### [facility] [address] [place] [address] Dr. Manda YorkT3U34.0 %Acguqd78.0-39.0The [facility] SystemComment on above: Performed By: #### UAMIC #### [facility] [address] [place] [address] Dr. Manda YorkT4 [Mass/Vol]11.20 ug/dLNormal4.80-13.90The [facility] Comment on above:Performed By: #### UAMIC #### [facility] [address] [place] [address] Dr. Manda YorkGLYCOHEMOGLOBIN A1Con 75-29-9290OJN RECOMMENDATIONSEE BELOWNormal The [facility] SystemComment on above:Result Comment: ADA RECOMMENDED LIMIT 4.0 - 6.0 ADA THERAPEUTIC TARGET < 7.0 ACTION SUGGESTED > 7.0Performed By: #### SLEAl THYLC #### [facility] [address] [place] [address] Dr. Manda YorkGlucose [Mass/Vol]117 mg/dLNormalThe [facility] SystemComment on above:Performed By: #### SLEAl THYLC #### [facility] [address] [place] [address] Dr. Manda YorkHbA1c (Bld) [Mass fraction]5.7 %Normal4.5-6.2The [facility] Hospitalment on above:Performed By: #### LUIGI LAWLER #### [facility] [address] [address] [address] Manda Garcia 56-17-9829Nqon [Mass/Vol]61.0 ug/oECldsuo20.0-170.0The [facility] SystemComment on above:Performed By: #### CBC #### [facility] [address] [address] [address] Manda Gilbert PROFILEon 38-91-4152HXRQ-HDL RATIO NORMSEE [facility] CenterComformerly [facility] on above:Result Comment: 3.3 - 4.4 LOW RISK 4.4 - 7.1 AVERAGE RISK 7.1 - 11.0 MODERATE RISK >11.0 HIGH RISKPerformed By: #### UAMIC #### [facility] [address] [place] [address] Dr. Manda Dislaesterol [Mass/Vol]260 mg/dLCritically high<=200The [facility] on above:Performed By: #### UAMIC #### [facility] [address] [address] [address] Manda Dislaesterol in HDL [Mass/Vol]38 mg/dLCritically mtx80-00Kvq [facility] on above:Performed By: #### UAMIC #### [facility] [address] [address] [address] Manda YorkCholesterol in LDL [Mass/Vol]170.8 mg/dLTriHealth Bethesda North Hospital on above:Performed By: #### UAMIC #### [facility] [address] [place] [address] Dr. Manda Carroll.total/Cholesterol in HDL [Mass ratio]6.8 {ratio} NormalThe [facility] on above:Performed By: #### UAMIC #### [facility] [address] [address] [address] Manda Marte NORMAL> or = 60 mg/dl - LOW CARDIOVASCULAR RISK <40 mg/dl - HIGH CARDIOVASCULAR RISKProMedica Defiance Regional HospitalComment on above:Performed By: #### UAMIC #### [facility] [address] [place] [address] Dr. Manda Zamora CALC NORMALSEE BELOWProMedica Defiance Regional HospitalComformerly [facility] on above:Result Comment: <100 mg/dl OPTIMAL 100 - 129 mg/dl NEAR OR ABOVE OPTIMAL 130 - 159 mg/dl BORDERLINE HIGH 160 - 189 mg/dl HIGH >190 mg/dl VERY HIGH Performed By: #### UAMIC #### [facility] [address] [place] [address] Dr. Manda YorkTriglyceride [Mass/Vol]256 mg/dLCritically high<=150The [facility] on above:Performed By: #### UAMIC #### [facility] [address] [place] [address] Dr. Manda YorkVLDL CALC51.2 mg/dLNoKnox Community HospitalComment on above: Performed By: #### UAMIC #### [facility] [address] [place] [address] Dr. Manda YorkPROF 14(COMP METB)on 38-33-8284Lbumyaf [Mass/Vol]3.8 g/dLNormal 3.4-5.0The [facility] SystemComformerly [facility] on above:Performed By: #### UAMIC #### [facility] [address] [place] [address] Dr. Manda YorkAlbumin/Globulin [Mass ratio]1.0 {ratio}NormalThe [facility] SystemComformerly [facility] on above:Performed By: #### UAMIC #### [facility] [address] [place] [address] Dr. Manda Toney [Catalytic activity/Vol]66 U/VJrlbkm94-773Txg [facility] on above:Performed By: #### UAMIC #### [facility] [address] [place] [address] Dr. Manda Person [Catalytic activity/Vol]27 U/PYtaczf84-49Yst [facility] SystemComformerly [facility] on above:Performed By: #### UAMIC #### [facility] [address] [address] [address] Manda Gregoryon gap [Moles/Vol]11.8 mmol/LNormalThe [facility] Comment on above:Performed By: #### UAMIC #### [facility] [address] [address] [address] Manda YorkAST [Catalytic activity/Vol]9 U/LCritically ohr47-79Oru [facility] SystemComment on above:Performed By: #### UAMIC #### [facility] [address] [address] [address] Manda YorkBilirubin [Mass/Vol]0.2 mg/dLNormal0.2-1.0The [facility] Comment on above:Performed By: #### UAMIC #### [facility] [address] [address] [address] Manda YorkCalcium [Mass/Vol]9.1 mg/dLNormal8.5-10.1The [facility] Comment on above:Performed By: #### UAMIC #### [facility] [address] [address] [address] Manda YorkChloride [Moles/Vol]101 mmol/LDchadh81-011Fzf [facility] Comment on above:Performed By: #### UAMIC #### [facility] [address] [address] [address] Manda YorkCO2 [Moles/Vol]26.1 mmol/TMcjgle83.0-32.0The [facility] Comment on above:Performed By: #### UAMIC #### [facility] [address] [address] [address] Manda YorkCreatinine [Mass/Vol]0.80 mg/dLNormal0.55-1.02The [facility] SystemComment on above:Performed By: #### UAMIC #### [facility] [address] [address] [address] Holman ChangEGFR-AF ALGERIAN>60Normal>=60The [facility] SystemComment on above:Performed By: #### UAMIC #### [facility] [address] [address] [address] Manda NoonanGFR-NON AF ALGERIAN>60Normal>=60The [facility] SystemComment on above:Performed By: #### UAMIC #### [facility] [address] [address] [address] Manda YorkGlobulin (S) [Mass/Vol]3.8 g/dLNormAvita Health System Bucyrus HospitalComment on above:Performed By: #### UAMIC #### [facility] [address] [address] [address] Manda YorkGlucose [Mass/Vol]93 mg/qTHtnhvz14-295Num [facility] Comment on above:Performed By: #### UAMIC #### [facility] [address] [address] [address] Manda YorkPotassium [Moles/Vol]3.9 mmol/LNormal3.5-5.1The [facility] Comment on above:Performed By: #### UAMIC #### [facility] [address] [address] [address] Manda YorkProtein [Mass/Vol]7.6 g/dLNormal6.4-8.2The [facility] Comment on above:Performed By: #### UAMIC #### [facility] [address] [address] [address] Manda YorkSodium [Moles/Vol]135 mmol/LCritically jif419-043Llo [facility] SystemComment on above:Performed By: #### UAMIC #### [facility] [address] [address] [address] Manda YorkUrea nitrogen [Mass/Vol]10.0 mg/dLNormal7.0-18.0The [facility] SystemComment on above:Performed By: #### UAMIC #### [facility] [address] [address] [address] Manda YorkUrea nitrogen/Creatinine [Mass ratio]12.5 mg/mgNormalThAshtabula General HospitalComment on above:Performed By: #### UAMIC #### [facility] [address] [address] [address] Manda Fowler 22-56-1277QKE7.610 uIU/mLNormal0.358-3.740The [facility] SystemComment on above:Performed By: #### UAMIC #### [facility] [address] [address] [address] Manda YorkB2 MICROGLOBULIN Bon 81-10-1075Ymbg-2-Microglobulin [Mass/Vol]1.8 ug/mL0.8 - 2.4 mg/LCleveland ClinicFERRITIN BLDon 68-93-6724Owkqcwoa [Mass/Vol] 33.2 ng/mL14.7 - 205.1 ng/mLCleveland ClinicFOLATE SERUMon 17-85-0699Wmnqux [Mass/Vol]6.6 ng/mL>4.7 ng/mLCleveland ClinicIron and Iron binding capacity panelon 45-56-7412Qxbt [Mass/Vol]49 ug/dL41 - 186 ug/dLCleveland ClinicIron binding capacity [Mass/Vol]392 ug/nVQjaw433 - 386 ug/dLOcean Isle Beach ClinicIron/TIBC [Molar ratio]12.5 %Low15.0 - 57.0 %[facility] HospitalCBC W Auto Differential panel (Bld)on 61-71-3306Bcvsgepbd (Bld) [#/Vol]0.07 10*3/uL<0.11 k/uLDetwiler Memorial HospitalBasophils/100 WBC (Bld)0.6 %[facility] HospitalDifferential cell count method Nom (Bld)AutoCleveland ClinicEosinophils (Bld) [#/Vol]0.19 10*3/uL<0.46 k/uL [facility] HospitalEosinophils/100 WBC (Bld)1.7 %[facility] HospitalErythrocyte distribution width (RBC) [Ratio]14.7 %11.5 - 15.0 %[facility] HospitalHematocrit (Bld) [Volume fraction]40.0 %36.0 - 46.0 %[facility] HospitalHemoglobin (Bld) [Mass/Vol]13.0 g/dL11.5 - 15.5 g/dLDetwiler Memorial HospitalImmature granulocytes (Bld) [#/Vol]0.07 10*3/uL<0.10 k/uLDetwiler Memorial HospitalImmature granulocytes/100 WBC (Bld) 0.6 %[facility] HospitalLymphocytes (Bld) [#/Vol]3.31 10*3/uL1.00 - 4.00 k/uL [facility] HospitalLymphocytes/100 WBC (Bld)30.2 %[facility] CenterH (RBC) [Entitic mass]28.9 pg26.0 - 34.0 pgCCleveland ClinicHC (RBC) [Mass/Vol]32.5 g/dL30.5 - 36.0 g/dLUniversity Hospitals Beachwood Medical CenterV (RBC) [Entitic vol]88.9 fL80.0 - 100.0 fLClevelUniversity Hospitals Samaritan Medical CenterMonocytes (Bld) [#/Vol]0.70 10*3/uL<0.87 k/uLDetwiler Memorial Hospital Monocytes/100 WBC (Bld)6.4 %[facility] HospitalNeutrophils (Bld) [#/Vol]6.63 10*3/uL1.45 - 7.50 k/uLDetwiler Memorial HospitalNeutrophils/100 WBC (Bld)60.5 %[facility] HospitalNucleated RBC (Bld) [#/Vol]<0.01 k/uLDetwiler Memorial HospitalNucleated RBC/100 WBC (Bld) [Ratio]0.0 /100 WBCDetwiler Memorial HospitalPlatelet mean volume (Bld) [Entitic vol]9.6 fL9.0 - 12.7 fLCOhio Valley Surgical HospitalPlatelets (Bld) [#/Vol]355 10*3/uL150 - 400 k/uLDetwiler Memorial HospitalRBC (Bld) [#/Vol]4.50 10*6/uL3.90 - 5.20 m/[facility] HospitalWBC (Bld) [#/Vol]10.97 10*3/uL3.70 - 11.00 k/[facility] Calcium.ionized [Moles/Vol]on 15-16-9333Bxxmsej.ionized (Bld) [Mass/Vol]1.26 mmol/L1.08 - 1.30 mmol/LCOhio Valley Surgical HospitalCalcium.ionized adjusted to pH 7.4 (Bld) [Moles/Vol]1.25 mmol/L1.08 - 1.30 mmol/LCleveland Tyler HospitalComprehensive metabolic 2000 panelon 89-98-5706Uvlwhmd [Mass/Vol]4.3 g/dL3.9 - 4.9 g/dLDetwiler Memorial Hospital ALP [Catalytic activity/Vol]70 U/L34 - 123 U/LCleveland ClinicALT [Catalytic activity/Vol]26 U/L7 - 38 U/LCleveland ClinicAnion gap [Moles/Vol]7 mmol/LLow9 - 18 mmol/LCleveland ClinicAST [Catalytic activity/Vol]12 U/LLow13 - 35 U/L [facility] HospitalBilirubin [Mass/Vol]0.2 mg/dL0.2 - 1.3 mg/dLDetwiler Memorial Hospital Calcium [Mass/Vol]9.3 mg/dL8.5 - 10.2 mg/dLDetwiler Memorial HospitalChloride [Moles/Vol] 103 mmol/L97 - 105 mmol/LCleveland ClinicCO2 [Moles/Vol]28 mmol/L22 - 30 mmol/L [facility] HospitalCreatinine [Mass/Vol]0.69 mg/dL0.58 - 0.96 mg/dLDetwiler Memorial Hospital Estimated Glomerular Filtration Ilny304 mL/min/1.73m>=60 mL/min/1.73mCleveland Tyler HospitalGlucose [Mass/Vol]100 mg/fSNbtq15 - 99 mg/dLDetwiler Memorial HospitalPotassium [Moles/Vol]3.9 mmol/L3.7 - 5.1 mmol/LCleveland ClinicProtein [Mass/Vol]7.0 g/dL 6.3 - 8.0 g/dLMount Carmel Health Systemodium [Moles/Vol]138 mmol/L136 - 144 mmol/L [facility] HospitalUrea nitrogen [Mass/Vol]12 mg/dL7 - 21 mg/dLDetwiler Memorial HospitalLD LACTATE DEHYDROon 48-03-6492EFZ [Catalytic activity/Vol]135 U/L135 - 214 U/L [facility] HospitalPHOSPHORUS INORGANICon 59-38-1594Sleplhtqn [Mass/Vol]3.2 mg/dL 2.7 - 4.8 mg/dLDetwiler Memorial HospitalURIC ACID BLOODon 73-30-9920Pzdfe [Mass/Vol]5.2 mg/dL2.5 - 6.6 mg/dLDetwiler Memorial HospitalIMMUNOGLOBULINS IGA/IGM/IGG/IGE QUANTITAon 86-66-1503Gdaaxmpzhyacly A, Qn, Hgmev749 mg/yCUswuzt62-655AvzSelect Medical [facility] [place] Comment on above:Result Comment: Performed at: CBPerformed By: #### SLEA, THYLC #### [facility] [address] [address] [address] Manda YorkImmunoglobulin E, Total10 IU/mLNormal6-495[facility] [place] Comment on above:Result Comment: Performed at: BNPerformed By: #### SLEA, THYLC #### [facility] [address] [address] [address] Manda YorkImmunoglobulin G, Qn, Lhuay336 mg/pYAjteqo756-0589NypSelect Medical [facility] Rehabilitation Hospital, BeachwoodComment on above:Result Comment: Performed at: CBPerformed By: #### SLEA, THYLC #### [facility] [address] [address] [address] Manda YorkImmunoglobulin M, Qn, Aluki897 mg/dLCritically pxqz20-027VwlSelect Medical [facility] Clinic Rehabilitation Hospital, BeachwoodComment on above:Result Comment: Performed at: CBPerformed By: #### SLEA, THYLC #### [facility] [address] [place] [address] Dr. Manda Pickard by IFAon 65-25-7408Afxsrnkbqmf Antibodies, IFANegativeNormal The [facility] SystemComment on above:Result Comment: Negative <1:80 Borderline 1:80 Positive >1:80 ICAP nomenclature: AC-0 For more information about Hep-2 cell patterns use ANApatterns.org, the official website for the International Consensus on Antinuclear Antibody (CHRISTIAN) Patterns (ICAP).Performed By: #### SLEA, THYLC #### [facility] [address] [place] [address] Dr. Manda YorkTHYROID ANTIBODIESon 46-02-1554Mlsrwummqkkum Antibody<1.0Normal 0.0-0.9[facility], BeachwoodComment on above:Result Comment: Thyroglobulin Antibody measured by [employer] MethodologyPerformed By: #### FT4 #### [facility] [address] [place] [address] Dr. Manda YorkThyroid Peroxidase (TPO) Ab<4Neibse9-42Guv [facility] Comment on above:Performed By: #### FT4 #### [facility] [address] [place] [address] Dr. Manda YorkPROTEIN ELECTROPHERESISon 36-39-5444Axmllfg [Mass/Vol]3.2 g/dL Normal2.9-4.4The [facility] SystemComment on above:Performed By: #### FT4 #### [facility] [address] [place] [address] Dr. Manda YorkAlbumin/Globulin [Mass ratio]1.0 {ratio}Normal0.7-1.7The [facility] SystemComment on above:Performed By: #### FT4 #### [facility] [address] [place] [address] Dr. Manda YorkJdeodRlycr-5-Ensdeeky0.2 g/dLNormal0.0-0.4The [facility] SystemComment on above:Performed By: #### FT4 #### [facility] [address] [place] [address] Dr. Manda YorkOjeusKvscq-4-Qiitkppc7.9 g/dLNormal0.4-1.0The [facility] SystemComment on above:Performed By: #### FT4 #### [facility] [address] [place] [address] Dr. Manda YorkBeta Globulin1.2 g/dLNormal0.7-1.3The [facility] SystemComment on above:Performed By: #### FT4 #### [facility] [address] [place] [address] Dr. Manda YorkGamma Globulin0.9 g/dLNormal0.4-1.8The [facility] SystemComment on above:Performed By: #### FT4 #### [facility] [address] [place] [address] Dr. Manda YorkGlobulin (S) [Mass/Vol]3.2 g/dLNormal2.2-3.9[facility] [place] Comment on above:Performed By: #### FT4 #### [facility] [address] [place] [address] Dr. Manda Montes De Oca-SpikeNot ObservedNormalNot ObservedSelect Medical [facility] Clinic Rehabilitation Hospital, BeachwoodComment on above:Performed By: #### FT4 #### [facility] [address] [place] [address] Dr. Manda Mares.NormalThe [facility] SystemComment on above:Performed By: #### FT4 #### [facility] [address] [place] [address] Dr. Manda Oswald note:CommentNormalThe [facility] Health SystemComment on above: Result Comment: Protein electrophoresis scan will follow via computer, mail, or plant maintenance worker delivery.Performed By: #### FT4 #### [facility] [address] [place] [address] Dr. Manda YorkProtein [Mass/Vol]6.4 g/dLNormal6.0-8.5The [facility] Comment on above:Performed By: #### FT4 #### [facility] [address] [place] [address] Dr. Manda Echavarria PROFILE Aon 52-83-0358Epqd-DNA (DS) Ab Qn9 IU/mLNormal0-9[facility], BeachwoodComment on above:Result Comment: Negative <5 Equivocal 5 - 9 Positive >9Performed By: #### LEANN LAWLERC #### [facility] [address] [place] [address] Dr. Manda YorkAntichromatin Antibodies<0.4Azskxj2.0-0.9[facility] [place] Comment on above:Performed By: #### NURIS THYLC #### [facility] [address] [place] [address] Dr. Manda Sanches Latex Turbid.<10.0Normal<14.0The [facility] SystemComment on above:Performed By: #### LEANN LAWLERC #### [facility] [address] [place] [address] Dr. Manda Chowdary Antibodies<0.0Ktizvg1.0-0.9The [facility] SystemComment on above:Performed By: #### NURIS THYLC #### [facility] [address] [place] [address] Dr. Manda Harmon Anti-SS-A<0.6Wgtlfj7.0-0.9The [facility] SystemComment on above:Performed By: #### SLEAl THYLC #### [facility] [address] [place] [address] Dr. Manda Harmon Anti-SS-B<0.3Davnoa6.0-0.9The [facility] SystemComformerly [facility] on above:Performed By: #### NURIS THYLC #### [facility] [address] [place] [address] Dr. Manda Lloyd Antibodies<0.2Thfqnz1.0-0.9The [facility] SystemComment on above:Performed By: #### NURIS THYLC #### [facility] [address] [place] [address] Dr. Manda YorkANTISTREPTOLYSIN O AB (ASO)on 79-64-7964Zneginemrrpuwabo O Ab49.6 IU/mLNormal0.0-200.0The [facility] on above:Performed By: #### ASOAB #### [facility] [address] [place] [address] Dr. Manda YorkMICROALBUMIN URINEon 05-70-5084Ifypbvo, Urine<3.0NormalNot Estab. The [facility] SystemComment on above:Result Comment: Verified by repeat analysisPerformed By: #### CBC #### [facility] [address] [place] [address] Dr. Manda YorkT4, T3U, FTI LABCORPon 13-27-1078Jejs Thyroxine Index2.6Normal 1.2-4.9The [facility] Hospitalment on above:Performed By: #### SLEAl THYLC #### [facility] [address] [address] [address] Manda YorkT3 Udvrko19 %Uwzbgr85-58Yqt [facility] SystemComment on above: Performed By: #### LUIGI LAWLER #### [facility] [address] [address] [address] Manda YorkT4 [Mass/Vol]9.9 ug/dLNormal4.5-12.0The [facility] SystemComment on above:Performed By: #### LUIGI LAWLER #### [facility] [address] [place] [address] Dr. Manda Bruce AUTO DIFFon 59-46-8861PWLP #0.1 103/ulNormal0.0-0.1The [facility] SystemComment on above:Performed By: #### UAMIC #### [facility] [address] [place] [address] Dr. Manda YorkBasophils/100 WBC (Bld)0.6 %Normal0.2-2.0The [facility] Comment on above:Performed By: #### UAMIC #### [facility] [address] [place] [address] Dr. Manda Shafer #0.3 103/ulNormal0.0-0.7The [facility] SystemComment on above: Performed By: #### UAMIC #### [facility] [address] [place] [address] Dr. Manda Noonanosinophils/100 WBC (Bld)3.4 %Normal0.9-7.0The [facility] Comment on above:Performed By: #### UAMIC #### [facility] [address] [place] [address] Dr. Manda Noonanrythrocyte distribution width (RBC) [Ratio]14.6 %Wlncsq63.0-15.0 The [facility] SystemComment on above:Performed By: #### UAMIC #### [facility] [address] [place] [address] Dr. Manda YorkHematocrit (Bld) [Volume fraction]39.1 %Glions06.0-48.0The [facility] SystemComment on above:Performed By: #### UAMIC #### [facility] [address] [place] [address] Dr. Manda YorkHemoglobin (Bld) [Mass/Vol]12.4 g/iWBhiaeg08.0-16.0The [facility] SystemComment on above:Performed By: #### UAMIC #### [facility] [address] [place] [address] Dr. Manda Calderon #0.03 10e3/ulNormal0.00-0.03The [facility] SystemComment on above:Performed By: #### UAMIC #### [facility] [address] [place] [address] Dr. Manda Calderon %0.3 %Normal0.0-0.5The [facility] SystemComment on above: Performed By: #### UAMIC #### [facility] [address] [place] [address] Dr. Manda Laguna #3.6 103/ulNormal1.2-3.8The [facility] SystemComment on above:Performed By: #### UAMIC #### [facility] [address] [place] [address] Dr. Manda Kasperhocytes/100 WBC (Bld)39.9 %Eloilg02.5-60.0The [facility] SystemComment on above:Performed By: #### UAMIC #### [facility] [address] [place] [address] Dr. Manda Dela CruzUAL DIFF REQNONormalThe [facility] SystemComment on above: Performed By: #### UAMIC #### [facility] [address] [place] [address] Dr. Manda Cardoso (RBC) [Entitic mass]28.4 lxImmker63.7-34.0The [facility] SystemComment on above:Performed By: #### UAMIC #### [facility] [address] [place] [address] Dr. Manda Cardoso (RBC) [Mass/Vol]31.7 g/oKKtvuts98.9-35.2The [facility] SystemComment on above:Performed By: #### UAMIC #### [facility] [address] [place] [address] Dr. Manda CardosoV (RBC) [Entitic vol]89.7 aGAjpvqq88.0-99.0The [facility] SystemComment on above:Performed By: #### UAMIC #### [facility] [address] [place] [address] Dr. Manda Maciel #0.7 103/ulNormal0.3-0.8The [facility] SystemComment on above:Performed By: #### UAMIC #### [facility] [address] [place] [address] Dr. Manda Coteocytes/100 WBC (Bld)7.3 %Normal1.7-12.0The [facility] Comment on above:Performed By: #### UAMIC #### [facility] [address] [place] [address] Dr. Manda Claudio #4.4 103/ulNormal1.4-6.5The [facility] SystemComment on above:Performed By: #### UAMIC #### [facility] [address] [place] [address] Dr. Manda Tuttleophils/100 WBC (Bld)48.5 %Mkelfb86.0-75.0The [facility] SystemComment on above:Performed By: #### UAMIC #### [facility] [address] [place] [address] Dr. Manda Ferreiralet mean volume (Bld) [Entitic vol]10.1 fLNormal9.5-13.5The [facility] State Health SystemComment on above:Performed By: #### UAMIC #### [facility] [address] [place] [address] Dr. Manda LewisT310 103/dvIshina819-669Aof [facility] Health SystemComment on above: Performed By: #### UAMIC #### [facility] [address] [place] [address] Dr. Manda YorkRBC4.36 106/ulNormal4.20-5.40The [facility] Hospitalment on above:Performed By: #### UAMIC #### [facility] [address] [place] [address] Dr. Manda YorkWBC9.0 103/ulNormal4.0-11.0The [facility] SystemComment on above: Performed By: #### UAMIC #### [facility] [address] [place] [address] Dr. Manda YorkCROwen [id number] [Mass/Vol]mg/LNormal<=1.0The [facility] Hospitalment on above:Performed By: #### UAMIC #### [facility] [address] [place] [address] Dr. Manda YorkCULTKEILA URINEon 50-77-7687JKYJFHP URINECulture Observations: LIGHT GROWTH OF MIXED GENITAL AMBER. NO POTENTIAL PATHOGENS SEEN.NormalThe [facility] Health SystemComment on above:Performed By: #### CBC #### [facility] [address] [place] [address] Dr. Manda YorkPROF 14(COMP METB)on 67-58-3467Ohszsfv [Mass/Vol]3.5 g/dLNormal 3.4-5.0The [facility] SystemComment on above:Performed By: #### UAMIC #### [facility] [address] [place] [address] Dr. Manda YorkAlbumin/Globulin [Mass ratio]1.0 {ratio}NormalThe [facility] Health SystemComment on above:Performed By: #### UAMIC #### [facility] [address] [place] [address] Dr. Manda Toney [Catalytic activity/Vol]71 U/HLwmgmp55-016[facility] on above:Performed By: #### UAMIC #### [facility] [address] [place] [address] Dr. Manda Person [Catalytic activity/Vol]46 U/ZWmaqzz47-49Kmd [facility] SystemComment on above:Performed By: #### UAMIC #### [facility] [address] [address] [address] Manda Gregoryon gap [Moles/Vol]11.6 mmol/LNormalThe [facility] Comment on above:Performed By: #### UAMIC #### [facility] [address] [address] [address] Manda YorkAST [Catalytic activity/Vol]15 U/LWxmldl55-23Gfo [facility] SystemComment on above:Performed By: #### UAMIC #### [facility] [address] [address] [address] Manda YorkBilirubin [Mass/Vol]0.2 mg/dLNormal0.2-1.0The [facility] Comment on above:Performed By: #### UAMIC #### [facility] [address] [place] [address] Dr. Manda YorkCalcium [Mass/Vol]8.7 mg/dLNormal8.5-10.1The [facility] Comment on above:Performed By: #### UAMIC #### [facility] [address] [place] [address] Dr. Manda YorkChloride [Moles/Vol]104 mmol/VKiupwk84-078Cst [facility] Comment on above:Performed By: #### UAMIC #### [facility] [address] [place] [address] Dr. Manda YorkCO2 [Moles/Vol]25.1 mmol/CSgxuzv97.0-32.0The [facility] Comment on above:Performed By: #### UAMIC #### [facility] [address] [place] [address] Dr. Manda YorkCreatinine [Mass/Vol]0.80 mg/dLNormal0.55-1.02The [facility] SystemComment on above:Performed By: #### UAMIC #### [facility] [address] [place] [address] Dr. Manda NoonanGFR-AF ALGERIAN>60Normal>=60The [facility] SystemComment on above:Performed By: #### UAMIC #### [facility] [address] [address] [address] Manda NoonanGFR-NON AF ALGERIAN>60Normal>=60The [facility] SystemComment on above:Performed By: #### UAMIC #### [facility] [address] [address] [address] Manda YorkGlobulin (S) [Mass/Vol]3.6 g/dLNormAvita Health System Bucyrus HospitalComment on above:Performed By: #### UAMIC #### [facility] [address] [address] [address] Manda YorkGlucose [Mass/Vol]92 mg/eRZwbyau14-876NscSelect Medical [facility] [place] Comment on above:Performed By: #### UAMIC #### [facility] [address] [address] [address] Manda YorkPotassium [Moles/Vol]3.7 mmol/LNormal3.5-5.1The [facility] Comment on above:Performed By: #### UAMIC #### [facility] [address] [address] [address] Manda YorkProtein [Mass/Vol]7.1 g/dLNormal6.4-8.2[facility] [place] Comment on above:Performed By: #### UAMIC #### [facility] [address] [address] [address] Manda YorkSodium [Moles/Vol]137 mmol/YJumynt330-815Uyq [facility] Comment on above:Performed By: #### UAMIC #### [facility] [address] [address] [address] Manda YorkUrea nitrogen [Mass/Vol]17.0 mg/dLNormal7.0-18.0The [facility] SystemComment on above:Performed By: #### UAMIC #### [facility] [address] [address] [address] Manda YorkUrea nitrogen/Creatinine [Mass ratio]21.2 mg/mgNormAvita Health System Bucyrus HospitalComment on above:Performed By: #### UAMIC #### [facility] [address] [address] [address] Manda Mckeon RATE WESTERGRENon 44-45-6447CKM RATE40 mm/hrCritically high <=20The [facility] Hospitalment on above:Performed By: #### SEDR #### [facility] [address] [address] [address] Manda Fowler 80-52-0605OSL1.155 uIU/mLNormal0.358-3.740The [facility] SystemComment on above:Performed By: #### UAMIC #### [facility] [address] [address] [address] Manda Lynch RANDOM W/MICROSCOPICon 94-93-0218VFTPYMQYYLJL SEENNormalNONE SEENSelect Medical [facility] Hospital, BeachwoodComment on above:Performed By: #### UAMIC #### [facility] [address] [address] [address] Manda Plummer Ql (U)NegativeNormalNEGATIVEThe [facility] Comment on above:Performed By: #### UAMIC #### [facility] [address] [address] [address] Manda KimNONE SEENNormalNONE SEENSelect Medical [facility] Hospital, BeachwoodComment on above:Performed By: #### UAMIC #### [facility] [address] [address] [address] Manda Dietz (U)CLEARNormalCLEARThe [facility] SystemComment on above: Performed By: #### UAMIC #### [facility] [address] [address] [address] Manda Meadows (U)LT. YELLOWNormalYELLOWSelect Medical [facility] Hospital, BeachwoodComment on above:Performed By: #### UAMIC #### [facility] [address] [place] [address] Dr. Manda Oconnell LM Nom (Urine sed)NONE SEENNormalNONE SEENSelect Medical [facility] Hospital, BeachwoodComment on above:Performed By: #### UAMIC #### [facility] [address] [place] [address] Dr. Manda Donaldsonthelial cells LM Ql (Urine sed)RARENormalNONE SEEN /RAREThe [facility] SystemComment on above:Performed By: #### UAMIC #### [facility] [address] [address] [address] Manda YorkGlucose Ql (U)NegativeNormalNEGATIVESelect Medical [facility] Hospital, BeachwoodComment on above:Performed By: #### UAMIC #### [facility] [address] [address] [address] Manda YorkHemoglobin Ql (U)NegativeNormalNEGATIVEWestern Reserve Hospital on above:Performed By: #### UAMIC #### [facility] [address] [address] [address] Manda YorkKetones Ql (U)NegativeNormalNEGATIVESelect Medical [facility], BeachwoodComment on above:Performed By: #### UAMIC #### [facility] [address] [address] [address] Manda YorkLEUKOCYTESNegativeNormalNEGATIVESelect Medical [facility], BeachwoodComment on above:Performed By: #### UAMIC #### [facility] [address] [address] [address] Manda YorkMUCOUSNONE SEENNormalNONE SEENSelect Medical [facility] Hospital, BeachwoodComment on above:Performed By: #### UAMIC #### [facility] [address] [address] [address] Manda YorkNitrite Ql (U)NegativeNormalNEGATIVESelect Medical [facility] Hospital, BeachwoodComment on above:Performed By: #### UAMIC #### [facility] [address] [address] [address] Manda YorkpH (U)6.0 [pH]Normal5-9[facility], BeachwoodComment on above: Performed By: #### UAMIC #### [facility] [address] [address] [address] Manda YorkRBCNONE SEENAbnormal0-2The [facility] SystemComment on above: Performed By: #### UAMIC #### [facility] [address] [place] [address] Dr. Manda YorkSPEC GRAVITY1.164Atviqz0.005-<=1.025The [facility] Health SystemComment on above:Performed By: #### UAMIC #### [facility] [address] [place] [address] Dr. Manda Lynch PROTEINNegativeNormalNEGATIVE/ TRACEThe [facility] Comment on above:Performed By: #### UAMIC #### [facility] [address] [place] [address] Dr. Manda Thompsonbilinogen Qn (U)0.2 {Carmella'U}/dLNormal0.2 - 1.0The [facility] SystemComment on above:Performed By: #### UAMIC #### [facility] [address] [place] [address] Dr. Manda YenBCNONOzzy SEENNormalNONE SEENThe [facility] SystemComment on above: Performed By: #### UAMIC #### [facility] [address] [place] [address] Dr. Manda YorkURIC ACID SERUMon 22-41-5912Ykwkq [Mass/Vol]4.2 mg/dLNormal 2.6-6.0The [facility] SystemComment on above:Performed By: #### UAMIC #### [facility] [address] [place] [address] Dr. Manda YorkVITAMIN D 25 OHon 80-79-9519KDB D 25-OH22.4 ng/mLNormalThe [facility] Health SystemComment on above:Performed By: #### FT4 #### [facility] [address] [place] [address] Dr. Manda Hays RANGESSEE BELOWProMedica Defiance Regional HospitalComment on above: Result Comment: <20 ng/mL Vit D deficient 20 - <30 ng/mL Vit D insufficient 30 - 100 ng/mL Vit D sufficient >100 ng/mL Potential ToxicityPerformed By: #### FT4 #### [facility] [address] [place] [address] Dr. Yilan ChangMETANEPHRINES FRAC. QNT 24 HR URINEon 94-08-7096Cltsizuyvgkx, U,55tdTpqspriBlsxcc47-181Wup Bellevue HospitalComment on above:Result Comment: No total volume submitted. Unable to calculate 24 hour result.Performed By: #### LEANN LAWLERC #### [facility] [address] [place] [address] Dr. Manda YorkMetanephrine, Ur57 ug/LNormalUndefinedSelect Medical [facility] [place] Comment on above:Performed By: #### LEANN LAWLERC #### [facility] [address] [place] [address] Dr. Manda Barcenasrmetanephr.,U,49wPeugnhnRfginu563-755Bhe [facility] Comment on above:Result Comment: No total volume submitted. Unable to calculate 24 hour result.Performed By: #### LEANN LAWLERC #### [facility] [address] [place] [address] Dr. Manda Barcenasrmetanephrine, Ur116 ug/LNormalUndefinedSelect [facility] [place] Comment on above:Performed By: #### LEANN LAWLERC #### [facility] [address] [place] [address] Dr. Manda YorkMETANEPHRINES PLASMA FREEon 55-67-8710Zdkcozlriocn, Pl22.1 pg/mL Normal0.0-88.0[facility], BeachwoodComment on above:Performed By: #### LUIGI LAWLER #### [facility] [address] [place] [address] Dr. Manda YorkNormetanephrine, Pl50.7 pg/mLNormal0.0-218.9[facility] [place] Comment on above:Performed By: #### LEANN LAWLERC #### [facility] [address] [place] [address] Dr. Manda YorkCMV PLASMA PCRon [id number] Quant DNA PCR (Plasma)Negative NormalNegativeSelect Medical [facility] Rehabilitation Hospital, BeachwoodComment on above:Result Comment: No CMV DNA detected. The quantitative range of this assay is 200 to 1 million IU/mL.Performed By: #### SLEA, THYLC #### [facility] [address] [place] [address] Dr. Manda Yorklog10 CMV Qn DNA PlUPTCALNoKnox Community HospitalComment on above:Result Comment: Unable to calculate result since non-numeric result obtained for component test.Performed By: #### SLEAl THYLC #### [facility] [address] [place] [address] Dr. Manda NavarreteV AB IGMon 34-08-7787Nshkanfpylpoloy (CMV) Ab, IgM43.2 AU/mL Critically high0.0-29.9The [facility] SystemComment on above:Result Comment: Negative <30.0 Equivocal 30.0 - 34.9 Positive >34.9 A positive result is generally indicative of acute infection, reactivation or persistent IgM production.Performed By: #### NURIS THYLC #### [facility] [address] [place] [address] Dr. Manda NavarreteV AB, IGGon 71-30-1410Iqjeeqofupsfqep (CMV) Ab, IgG>10.00 Critically high0.00-0.59The [facility] SystemComment on above:Result Comment: Negative <0.60 Equivocal 0.60 - 0.69 Positive >0.69Performed By: #### CMVIGG #### [facility] [address] [place] [address] Dr. Manda Bruce AUTO DIFFon [id number] #0.1 103/ulNormal0.0-0.1The [facility] SystemComment on above:Performed By: #### CBC #### [facility] [address] [place] [address] Dr. Manda YorkBasophils/100 WBC (Bld)0.6 %Normal0.2-2.0The [facility] Comment on above:Performed By: #### CBC #### [facility] [address] [place] [address] Dr. Holman ChangEO #0.2 103/ulNormal0.0-0.7The [facility] SystemComment on above: Performed By: #### CBC #### [facility] [address] [address] [address] Manda Noonanosinophils/100 WBC (Bld)2.3 %Normal0.9-7.0The [facility] Comment on above:Performed By: #### CBC #### [facility] [address] [place] [address] Dr. Manda Noonanrythrocyte distribution width (RBC) [Ratio]14.2 %Koikwm29.0-15.0 The [facility] SystemComment on above:Performed By: #### CBC #### [facility] [address] [place] [address] Dr. Manda YorkHematocrit (Bld) [Volume fraction]40.2 %Ozjnes83.0-48.0The [facility] SystemComment on above:Performed By: #### CBC #### [facility] [address] [place] [address] Dr. Manda YorkHemoglobin (Bld) [Mass/Vol]12.8 g/kYGjylmw26.0-16.0The [facility] Hospitalment on above:Performed By: #### CBC #### [facility] [address] [place] [address] Dr. Manda Calderon #0.02 10e3/ulNormal0.00-0.03The [facility] Hospitalment on above:Performed By: #### CBC #### [facility] [address] [place] [address] Dr. Manda Calderon %0.2 %Normal0.0-0.5The [facility] Hospitalment on above: Performed By: #### CBC #### [facility] [address] [place] [address] Dr. Manda KasperH #2.5 103/ulNormal1.2-3.8The [facility] on above:Performed By: #### CBC #### [facility] [address] [place] [address] Dr. Manda Bolañosmphocytes/100 WBC (Bld)24.9 %Iestii70.5-60.0The Carl HospitalComment on above:Performed By: #### CBC #### [facility] [address] [address] [address] Manda Richards DIFF REQNONormalThe [facility] SystemComment on above: Performed By: #### CBC #### [facility] [address] [place] [address] Dr. Manda Cardoso (RBC) [Entitic mass]27.9 yhCewqpo20.7-34.0The [facility] Lea HospitalComment on above:Performed By: #### CBC #### [facility] [address] [place] [address] Dr. Manda Cardoso (RBC) [Mass/Vol]31.8 g/eYVxvmmy11.9-35.2The [facility] SystemComment on above:Performed By: #### CBC #### [facility] [address] [place] [address] Dr. Manda Cardoso (RBC) [Entitic vol]87.6 jWHqppmn30.0-99.0The [facility] SystemComment on above:Performed By: #### CBC #### [facility] [address] [place] [address] Dr. Manda Maciel #0.6 103/ulNormal0.3-0.8The [facility] SystemComment on above:Performed By: #### CBC #### [facility] [address] [place] [address] Dr. Manda Coteocytes/100 WBC (Bld)6.3 %Normal1.7-12.0The [facility] Comment on above:Performed By: #### CBC #### [facility] [address] [place] [address] Dr. Manda Claudio #6.5 103/ulNormal1.4-6.5The [facility] SystemComment on above:Performed By: #### CBC #### [facility] [address] [place] [address] Dr. Manda Longutrophils/100 WBC (Bld)65.7 %Riuwle11.0-75.0The [facility] SystemComment on above:Performed By: #### CBC #### [facility] [address] [place] [address] Dr. Manda YorkPlatelet mean volume (Bld) [Entitic vol]10.1 fLNormal9.5-13.5The [facility] SystemComment on above:Performed By: #### CBC #### [facility] [address] [place] [address] Dr. Manda YorkPLT304 103/gfLpvjfg095-051Sqd [facility] SystemComment on above: Performed By: #### CBC #### [facility] [address] [place] [address] Dr. Manda YorkRBC4.59 106/ulNormal4.20-5.40The [facility] on above:Performed By: #### CBC #### [facility] [address] [place] [address] Dr. Manda YorkWBC9.9 103/ulNormal4.0-11.0The [facility] SystemComformerly [facility] on above: Performed By: #### CBC #### [facility] [address] [place] [address] Dr. Manda Macdonald 14(COMP METB)on 66-79-4634Hyxganu [Mass/Vol]3.7 g/dLNormal 3.4-5.0The [facility] on above:Performed By: #### CBC #### [facility] [address] [place] [address] Dr. Manda YorkAlbumin/Globulin [Mass ratio]1.0 {ratio}NormalThe [facility] SystemComformerly [facility] on above:Performed By: #### CBC #### [facility] [address] [place] [address] Dr. Manda Toney [Catalytic activity/Vol]65 U/EVmhdpa75-365Pcv [facility] SystemComment on above:Performed By: #### CBC #### [facility] [address] [place] [address] Dr. Manda Person [Catalytic activity/Vol]35 U/WYpxhdm36-92Klr [facility] SystemComment on above:Performed By: #### CBC #### [facility] [address] [address] [address] Manda Gregoryon gap [Moles/Vol]13.0 mmol/LNormalSelect [facility] [place] Comment on above:Performed By: #### CBC #### [facility] [address] [address] [address] Manda YorkAST [Catalytic activity/Vol]12 U/LCritically sja93-66Fsf [facility] SystemComment on above:Performed By: #### CBC #### [facility] [address] [address] [address] Manda YorkBilirubin [Mass/Vol]0.2 mg/dLNormal0.2-1.0[facility] [place] Comment on above:Performed By: #### CBC #### [facility] [address] [address] [address] Manda YorkCalcium [Mass/Vol]8.7 mg/dLNormal8.5-10.1[facility] [place] Comment on above:Performed By: #### CBC #### [facility] [address] [address] [address] Manda YorkChloride [Moles/Vol]104 mmol/XOqmwol48-990WzwSelect Medical [facility] [place] Comment on above:Performed By: #### CBC #### [facility] [address] [address] [address] Manda YorkCO2 [Moles/Vol]24.9 mmol/PNnhkef13.0-32.0[facility] [place] Comment on above:Performed By: #### CBC #### [facility] [address] [address] [address] Manda YorkCreatinine [Mass/Vol]0.77 mg/dLNormal0.55-1.02The [facility] SystemComment on above:Performed By: #### CBC #### [facility] [address] [address] [address] Holman ChangEGFR-AF ALGERIAN>=60Normal>=60The [facility] SystemComment on above:Performed By: #### CBC #### [facility] [address] [address] [address] Manda NoonanGFR-NON AF ALGERIAN>=60Normal>=60The [facility] SystemComment on above:Performed By: #### CBC #### [facility] [address] [address] [address] Manda YorkGlobulin (S) [Mass/Vol]3.8 g/dLNormAvita Health System Bucyrus HospitalComment on above:Performed By: #### CBC #### [facility] [address] [address] [address] Manda YorkGlucose [Mass/Vol]110 mg/dLCritically ohtz28-504Ync [facility] SystemComment on above:Performed By: #### CBC #### [facility] [address] [address] [address] Manda YorkPotassium [Moles/Vol]3.9 mmol/LNormal3.5-5.1The [facility] Comment on above:Performed By: #### CBC #### [facility] [address] [address] [address] Manda YorkProtein [Mass/Vol]7.5 g/dLNormal6.4-8.2The [facility] Comment on above:Performed By: #### CBC #### [facility] [address] [address] [address] Manda YorkSodium [Moles/Vol]138 mmol/EMiwhck115-308Tzy [facility] Comment on above:Performed By: #### CBC #### [facility] [address] [address] [address] Manda YorkUrea nitrogen [Mass/Vol]17.0 mg/dLNormal7.0-18.0The [facility] SystemComment on above:Performed By: #### CBC #### [facility] [address] [address] [address] Manda YorkUrea nitrogen/Creatinine [Mass ratio]22.1 mg/mgNormalThe [facility] SystemComment on above:Performed By: #### CBC #### [facility] [address] [place] [address] Dr. Manda Mckeon RATE WESTERGRENon 88-45-5354BKE RATE45 mm/hrCritically high <=20The [facility] Hospitalment on above:Performed By: #### FT4 #### [facility] [address] [place] [address] Dr. Manda Pickard EIA W/REFLEX 5 BIOMARKERSon 61-70-6833QWY DirectPositive AbnormalNegativeThe [facility] SystemComment on above:Performed By: #### CBC #### [facility] [address] [place] [address] Dr. Manda Meza-DNA (DS) Ab Qn10 IU/mLCritically high0-9The [facility] on above:Result Comment: Negative <5 Equivocal 5 - 9 Positive >9Performed By: #### CBC #### [facility] [address] [place] [address] Dr. Manda Chowdary Antibodies<0.0Fgxsrg8.0-0.9The [facility] SystemComment on above:Performed By: #### CBC #### [facility] [address] [place] [address] Dr. Manda Lux BELOW:CommentNormalThe [facility] Hospitalment on above: Result Comment: Autoantibody Disease Association [...] Sm (anti-Schneider) SLE 15 - 30% --------- COMMERCIAL CREDIT LEAD Mixed Connective Tissue Disease 95% (U1 nRNP, SLE 30 - 50% anti-ribonucleoprotein) Polymyositis and/or Dermatomyositis 20% --------- Scl-70 (antiDNA Scleroderma (diffuse) 20 - 35% topoisomerase) Crest 13% --------- Felicita-1 Polymyositis and/or Dermatomyositis 20 - 40% --------- Centromere B Scleroderma - Crest variant 80%Performed By: #### CBC #### [facility] [address] [place] [address] Dr. Manda Harmon Anti-SS-A<0.4Zgfgcj2.0-0.9The [facility] Hospitalment on above:Performed By: #### CBC #### [facility] [address] [place] [address] Dr. Manda Harmon Anti-SS-B<0.1Cngrgc9.0-0.9[facility], BeachwoodComment on above:Performed By: #### CBC #### [facility] [address] [place] [address] Dr. Manda Lloyd Antibodies<0.1Rqatno7.0-0.9[facility], BeachwoodComment on above:Performed By: #### CBC #### [facility] [address] [place] [address] Dr. Manda Buenrostro PLASMA PCRon 57-01-4797XUL Quant DNA PCR (Plasma)Negative NormalNegativeToledo Hospital on above:Result Comment: No CMV DNA detected. The quantitative range of this assay is 200 to 1 million IU/mL.Performed By: #### CMVPL #### [facility] [address] [place] [address] Dr. Manda Yorklog10 CMV Qn DNA PlUPTCALNoKnox Community HospitalComment on above:Result Comment: Unable to calculate result since non-numeric result obtained for component test.Performed By: #### CMVPL #### [facility] [address] [place] [address] Dr. Manda NavarreteV AB IGMon 55-03-6359Jyzlmuvtrlqbnhj (CMV) Ab, IgM35.5 AU/mL Critically high0.0-29.9The [facility] SystemComment on above:Result Comment: Negative <30.0 Equivocal 30.0 - 34.9 Positive >34.9 A positive result is generally indicative of acute infection, reactivation or persistent IgM production.Performed By: #### LUIGI LAWLER #### [facility] [address] [place] [address] Dr. Manda YorkCMV AB, IGGon 44-56-0564Rgwrupkgzaxcbbj (CMV) Ab, IgG6.30 U/mL Critically high0.00-0.59The [facility] SystemComment on above:Result Comment: Negative <0.60 Equivocal 0.60 - 0.69 Positive >0.69Performed By: #### LUIGI LAWLER #### [facility] [address] [place] [address] Dr. Manda Bruce AUTO DIFFon 55-23-9913DCLB #0.1 103/ulNormal0.0-0.1The [facility] SystemComment on above:Performed By: #### CBC #### [facility] [address] [place] [address] Dr. Manda Stroudsophils/100 WBC (Bld)0.7 %Normal0.2-2.0[facility] [place] Comment on above:Performed By: #### CBC #### [facility] [address] [place] [address] Dr. Manda Shafer #0.2 103/ulNormal0.0-0.7The [facility] SystemComment on above: Performed By: #### CBC #### [facility] [address] [place] [address] Dr. Manda Noonanosinophils/100 WBC (Bld)2.0 %Normal0.9-7.0The [facility] Comment on above:Performed By: #### CBC #### [facility] [address] [place] [address] Dr. Manda Noonanrythrocyte distribution width (RBC) [Ratio]14.4 %Lslfrd54.0-15.0 The [facility] SystemComment on above:Performed By: #### CBC #### [facility] [address] [place] [address] Dr. Manda YorkHematocrit (Bld) [Volume fraction]37.2 %Ddmivm87.0-48.0The [facility] SystemComment on above:Performed By: #### CBC #### [facility] [address] [place] [address] Dr. Manda YorkHemoglobin (Bld) [Mass/Vol]12.3 g/eLZkeeqm01.0-16.0The [facility] SystemComment on above:Performed By: #### CBC #### [facility] [address] [place] [address] Dr. Manda Calderon #0.02 10e3/ulNormal0.00-0.03The [facility] SystemComment on above:Performed By: #### CBC #### [facility] [address] [place] [address] Dr. Manda Calderon %0.2 %Normal0.0-0.5The [facility] SystemComment on above: Performed By: #### CBC #### [facility] [address] [place] [address] Dr. Manda Laguna #2.1 103/ulNormal1.2-3.8The [facility] SystemComformerly [facility] on above:Performed By: #### CBC #### [facility] [address] [place] [address] Dr. Manda Bolañosmphocytes/100 WBC (Bld)26.4 %Mwjilq24.5-60.0The [facility] SystemComment on above:Performed By: #### CBC #### [facility] [address] [place] [address] Dr. Manda YorkMANUAL DIFF REQNONormalThe [facility] Health SystemComment on above: Performed By: #### CBC #### [facility] [address] [place] [address] Dr. Manda Gil (RBC) [Entitic mass]29.2 ssBopexh60.7-34.0The [facility] SystemComment on above:Performed By: #### CBC #### [facility] [address] [address] [address] Manda Cardoso (RBC) [Mass/Vol]33.1 g/zCQsucax89.9-35.2The [facility] SystemComment on above:Performed By: #### CBC #### [facility] [address] [place] [address] Dr. Manda CardosoV (RBC) [Entitic vol]88.4 nJGjgpsg73.0-99.0The [facility] SystemComment on above:Performed By: #### CBC #### [facility] [address] [place] [address] Dr. Manda Maciel #0.5 103/ulNormal0.3-0.8The [facility] SystemComment on above:Performed By: #### CBC #### [facility] [address] [place] [address] Dr. Manda Coteocytes/100 WBC (Bld)6.7 %Normal1.7-12.0[facility] Comment on above:Performed By: #### CBC #### [facility] [address] [place] [address] Dr. Manda Claudio #5.2 103/ulNormal1.4-6.5The [facility] SystemComment on above:Performed By: #### CBC #### [facility] [address] [place] [address] Dr. Manda Longutrophils/100 WBC (Bld)64.0 %Acalrh71.0-75.0The [facility] SystemComment on above:Performed By: #### CBC #### [facility] [address] [place] [address] Dr. Manda Ferreiralet mean volume (Bld) [Entitic vol]10.5 fLNormal9.5-13.5The [facility] SystemComment on above:Performed By: #### CBC #### [facility] [address] [place] [address] Dr. Manda YorkPLT265 103/abKntwco865-253Bsa [facility] SystemComment on above: Performed By: #### CBC #### [facility] [address] [address] [address] Manda YorkRBC4.21 106/ulNormal4.20-5.40The [facility] SystemComment on above:Performed By: #### CBC #### [facility] [address] [address] [address] Manda YorkWBC8.1 103/ulNormal4.0-11.0The [facility] SystemComment on above: Performed By: #### CBC #### [facility] [address] [address] [address] Manda Lopez 05-35-0954FPQ [Mass/Vol]mg/LNormal<=1.0The [facility] SystemComformerly [facility] on above:Performed By: #### FT4 #### [facility] [address] [place] [address] Dr. Manda Mckeon RATE WESTERGRENon 40-25-5789LHG RATE34 mm/hrCritically high <=20The [facility] SystemComformerly [facility] on above:Performed By: #### CBC #### [facility] [address] [place] [address] Dr. Manda YorkCHLORIDE (POC)Ordered By: Jonas Black on 49-31-3568Kvlwyxjv [Moles/Vol]106 mmol/L98 - 107 mmol/LMercy Health Work Phone: catheterization and angiography procedure details panelOrdered By: Jonas Black on 55-22-7538Nufahkl Diagnostic Report Demographics Patient TERA Torres Date of Study 10/07/2020 Name Dateof 1980 Gender Female Age 40 year(s) Race Room [id number]^GINO Height: 67 inch, 170.18 cm Number Corporate [id number] Weight: 234 pounds, 106.1 kg ID # Patient [id number] BSA:2.16 m^2 BMI: 36.65 kg/m^2 Acct # MR # [id number] Performing Jonas Black Physician Referring # Physician [...] was explained in detail to the patient. Risks,complications and alternative treatments were reviewed. Written consent was obtained. Diagnostic Cath Status: Elective Entry Locations - Retrograde Percutaneous access was performed through the RightRadial artery. A 6 Fr sheath was inserted. [...] Right coronary angiography. Contrast Material: - Isovue 42000 ml Fluoroscopy Time: Diagnostic: 2:12 minutes. Total: [...] assessed as CCS II according to the Surinamese clinical classification. Hemodynamics Condition: Baseline Room Air [...] -------+---------+---------+---------+ +---------+ + !Aortic (more content not included)...[employer] Phone: ejennifer, [facility] Incoming Cardio Results From [facility]/ - 10/07/2020 10:37 AM EDT Cardiac Diagnostic Report Demographics Patient TERA Torres Date of Study 10/07/2020 Name Date of 1980 Gender Female Age 40 year(s) Race Room 6484117^LEYDI^JONAS Height: 67 inch, 170.18 cm Number Corporate [id number] Weight: 234 pounds, 106.1 kg ID # Patient [id number] BSA: 2.16 m^2 BMI: 36.65 kg/m^2 Acct # MR # [id number] Performing Jonas Black Physician Referring # Physician [...] Right coronary angiography. Contrast Material: - Isovue 77778 ml Fluoroscopy Time: Diagnostic: 2:12 minutes. Total: [...] assessed as CCS II according to the Surinamese clinical classification. Hemodynamics Condition: Baseline Room Air [...] +---------+---------+---------+ +---------+ + Shunts Oxygen Values O2 Ernikabd261.4O2 Zueeikwkopa735.52 [employer] Phone: [employer] Phone: [employer] Phone: creatinine W/GFR Point of CareOrdered By: Jonas Black on 41-71-8920Hrujioxzke [Mass/Vol]0.64 mg/dL0.51 - 1.19 mg/dLSix Degrees Games Phone: GFR Non->60>60 mL/minSix [employer]rees Games Phone: GFR/1.73 sq M.predicted MDRD (S/P/Bld) [Vol rate/Area] mL/min/{1.73_m2}>60 mL/minSix [employer]rees Games Phone: GFR/1.73 sq M.predicted MDRD (S/P/Bld) [Vol rate/Area] [employer] Phone: comment on above:Average GFR for 40-49 years old: 99 mL/min/1.73sq m Chronic Kidney Disease: <60 mL/min/1.73sq m Kidney failure: <15 mL/min/1.73sq m eGFR calculated using average adult body mass. Additional eGFR calculator available at: http://www.[employer]/multiple_crcl_2012.htm Hemoglobin and hematocrit, bloodOrdered By: Jonas Black on 47-22-7618Gatcssuzoi (Bld) [Volume fraction]41 %36 - 46 %[employer] Phone: Hemoglobin (Bld) [Mass/Vol]14.0 g/dL12.0 - 16.0 g/dL [employer] Phone: No Panel InformationOrdered By: Jonas Black on 42-20-5720[facility] Work Phone: pOCT GlucoseOrdered By: Jonas Black on 10-07-2020 Glucose [Mass/Vol]98 mg/dL74 - 100 mg/dLMercy Health Lorain HospitalRoot3 Technologies Phone: pOCT urine pregnancyOrdered By: Jonas Black on 75-96-2695Aoya HCG ( test) Ql (U)NegativeNEGATIVEMercy Health Lorain HospitalRoot3 Technologies Phone: comment on above:Specimens with hCG levels near the threshold of the test (25 mIU/mL) may give a negative or indeterminate result. In such cases, another test should be performed with a new specimen in 48-72 hours. If early is suspected clinically in this setting, correlation with quantitative serum b-hCG level is suggested. [employer] Phone: pOTASSIUM (POC)Ordered By: Jonas Black on 10-07-2020 Potassium [Moles/Vol]3.8 mmol/L3.5 - 4.5 mmol/LMavita health system bucyrus hospitaly [employer] Phone: platelet Counton 46-69-3250Yfvoahetf (Bld) [#/Vol]299 10*3/yHKxrkrj895-375OuojiThe Surgical Hospital At SouthwoodsComment on above:Performed By: #### PLT #### [facility] [place], [place] [id number] Field Reimbursement Manager: Rick Serrano MDPlatelet countOrdered By: Jonas Black on 25-87-3317Yxdbusrnc (Bld) [#/Vol]299 10*3/uLMercy Health Work Phone: [facility] Work Phone: sODIUM (POC)Ordered By: Jonas Black on 10-07-2020 Sodium [Moles/Vol]141 mmol/L138 - 146 mmol/LMercy Health Work Phone: coding Summary.on 11-65-2761Ffkydu Summary.CODING DATE: 01/12/2019 FINAL [facility] STATUS: Home (Routine DC) PAYOR: Medicaid [...] mass index (BMI) 34.0-34.9, adult Z79.899 Other mcc (current) drug therapy PYMT PROC EA STAT DESCRIPTION DOCTOR NAME DATE NOTE: The code number assigned matches the documented diagnosis and / or procedure in the patient's chart. However, the narrative phrase printed from the coding software may appear abbreviated, or result in slightly different terminology. Coded By: Luz Judd Date Saved: 01/12/2019 10:25 amNOhioHealth Grant Medical CenterCoding Summary. CODING DATE: 01/12/2019 FINAL [facility] STATUS: Home (Routine DC) PAYOR: Medicaid [...] mass index (BMI) 34.0-34.9, adult Z79.899 Other mcc (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 However, the narrative phrase printed from the coding software may appear abbreviated, or result in slightly different terminology. Revised Coded By: Luz Judd Revised Date Saved: 01/12/2019 10:25 amNOhioHealth Grant Medical CenterXR Chest 2 Viewson 55-23-6710OO Chest 2 ViewsExam Date/Time: 01/11/2019 18:05 EDT [...] Micheal Valenzuela M.D. Transcribed by: BILL Technologist: DAYANARAOhioHealth Grant Medical CenterAuto Diffon 17-80-8182Pfhnphopy/100 WBC (Bld)0.8 %Normal0.0-2.0[facility] Comment on above:Order Comment: Order Added by Discern Expert.Performed By: #### [id number], 4252281, 4209332, 1860056, 11919190, 6337872, 2582629, 1940798, 9041696, 25529507, 8544911 #### [facility] [address], [place] [address]Unbrsrjsx/Leukocytes Auto (Bld) [Pure # fraction]0.1 E9/LNormal 0.0-0.2[facility]. Finan CenterComment on above:Order Comment: Order Added by Discern Expert.Performed By: #### [id number], 1129150, 6483778, 7193746, 45645068, 2301573, 0050553, 6991684, 6708423, 84113134, 4351506 #### [facility] [address] [place] [address]Sjfsgpcaxgn/100 WBC (Bld)1.9 %Normal0.0-8.0[facility] HospitalComment on above:Order Comment: Order Added by Discern Expert.Performed By: #### [id number], 9644534, 7481388, 1671591, 45123268, 5521842, 1249955, 1568963, 9703970, 17579466, 1272607 #### [facility] [address] [place] [address]Zynehotgeue/Leukocytes Auto (Bld) [Pure # fraction]0.1 E9/L Normal0.0-0.5FParkview HealthComment on above:Order Comment: Order Added by Discern Expert.Performed By: #### 83213931, 8068208, 7290107, 6300549, 57386554, 0413946, 3233437, 4472859, 9809647, 16374272, 2516236 #### [facility] [address] [place] [address]Nyplldmiiaa/100 WBC (Bld)28.0 %Rfssjy46.0-50.0[facility] HospitalComment on above:Order Comment: Order Added by Discern Expert. Performed By: #### [id number], 8998966, 0018025, 2876061, 73145701, 6292191, 3843388, 0513925, 5462802, 80460169, 8007187 #### [facility] [address] [place] [address]Vnqivloqmay/Leukocytes Auto (Bld) [Pure # fraction]2.2 E9/L Normal1.0-4.0[facility] HospitalComment on above:Order Comment: Order Added by Discern Expert.Performed By: #### 64160044, 4533324, 4347958, 7710440, 44883543, 5200860, 7561983, 5707703, 7102214, 03134902, 2119363 #### [facility] [address], [place] [address]Rqukjvhwi/100 WBC (Bld)7.0 %Normal4.0-14.0[facility] HospitalComment on above:Order Comment: Order Added by Discern Expert.Performed By: #### 33288719, 7782079, 7363197, 3012531, 95206358, 7566842, 2166774, 3476799, 3609830, 44014133, 6296885 #### [facility] [address], [place] [address]Isschauvv/Leukocytes Auto (Bld) [Pure # fraction]0.6 E9/LNormal 0.2-1.0[facility] HospitalComment on above:Order Comment: Order Added by Discern Expert.Performed By: #### 58894352, 3929817, 5125865, 6407465, 88844198, 6355419, 9196114, 7085870, 2941417, 44839943, 5520717 #### [facility] [address] [place] [address]Aohwslmxfxd/100 WBC (Bld)62.3 %Smxnyl35.0-75.0[facility] HospitalComment on above:Order Comment: Order Added by Discern Expert. Performed By: #### 14452830, 3263920, 1091386, 9885792, 07644367, 1129197, 7950100, 0772648, 5405286, 71646763, 9898933 #### [facility] [address], [place] [address]Ftrjvvxkerf/Leukocytes Auto (Bld) [Pure # fraction]4.9 E9/L Normal2.0-7.5FParkview HealthComment on above:Order Comment: Order Added by Discern Expert.Performed By: #### 85104258, 5171292, 2011211, 4284805, 40912249, 1362504, 2717361, 7757178, 4858202, 59806929, 2221454 #### [facility] [address], [place] [address]WFVcn 51-34-0165Oayceagnxi [Mass/Vol]0.7 mg/dLNormal0.5-1.3 [facility] HospitalComment on above:Performed By: #### 37849412, 9119452, 3528015, 7974774, 51091091, 9171559, 0579329, 7207926, 8594326, 78800567, 2135035 #### [facility] [address], [place] [address]Rubm nitrogen [Mass/Vol]11 mg/dLNormal5-21[facility] HospitalComment on above:Performed By: #### 00851458, 1910050, 8631060, 6806702, 46615568, 1582670, 0784590, 5901055, 0735136, 50362047, 8872200 #### [facility] [address], [place] [address]Gcby nitrogen/Creatinine [Mass ratio]16 No NzvkhVdjllh54-88 [facility] HospitalComment on above:Performed By: #### 02777216, 6712039, 0021582, 0800087, 48180928, 8839350, 5273391, 8760926, 3639506, 69737382, 7557673 #### [facility] [address], [place] [address]Unblj gap [Moles/Vol]14 mmol/LNormal6-16[facility] HospitalComment on above:Performed By: #### 86172996, 0540742, 8862217, 8364017, 07602277, 0321236, 7026617, 0168962, 1552355, 79468591, 8697921 #### [facility] [address], [place] [address]Ndzpaar [Mass/Vol]8.9 mg/dLNormal8.9-11.1FParkview HealthComment on above:Performed By: #### 87699852, 9348934, 5284942, 7537489, 67599019, 7774698, 3693519, 4419737, 0965206, 90699291, 7241568 #### [facility] [address], [place] [address]Mylhuqij [Moles/Vol]107 mmol/TObhcex101-741RnonizHolmes County Joel Pomerene Memorial HospitalComment on above:Performed By: #### 05620069, 3893918, 2618777, 4442205, 47081565, 7754334, 7059800, 6068390, 7833314, 29414646, 3552367 #### [facility] [address], [place] [address]GX9 [Moles/Vol]22 mmol/QBtprbx84-46DnqpydHolmes County [facility]rene Memorial Hospital Comment on above:Performed By: #### 11155399, 0823662, 0416385, 4116173, 95751962, 8007300, 3370797, 9813042, 9162232, 04585318, 3271612 #### [facility] [address], [place] [address]Mjporob [Mass/Vol]122 mg/fAVlvzqg37-234ButvehHolmes County Joel Pomerene Memorial HospitalComment on above:Result Comment: If this glucose result represents a fasting glucose, interpretation should refer tothe following reference range: 55-99 mg/dLPerformed By: #### 10243395, 7206354, 6233267, 1320157, 33262170, 2157086, 7570547, 3520852, 4870050, 23315251, 5184203 #### [facility] [address], [place] [address]Ofahnduao [Moles/Vol]3.8 mmol/LNormal3.5-5.3FParkview HealthComment on above:Performed By: #### 33388116, 0697834, 3480552, 1472302, 57163288, 0764228, 1757496, 3081434, 3252855, 26868679, 1994762 #### [facility] [address], [place] [address]Rgvezt [Moles/Vol]139 mmol/FAgsqdh751-458TxjbjoHolmes County Joel Pomerene Memorial HospitalComment on above:Performed By: #### 92107184, 8270733, 0976675, 5075620, 25969866, 1412823, 6090239, 6947065, 6592732, 77354230, 2517829 #### [facility] [address], [place] [address]ZJW w/ Auto Diffon 15-90-5208Idqjlfukvsv distribution width (RBC) [Ratio]14.0 %Wjbamj18.9-14.2FParkview HealthComment on above: Performed By: #### 23267012, 7137126, 4444713, 9665104, 04227728, 0726443, 4525362, 8145568, 6796836, 75030649, 7216002 #### [facility] [address], [place] [address]Xgvnoarmsh (Bld) [Volume fraction]39.9 %Scyaik13.0-46.0[facility] HospitalComment on above:Performed By: #### 64084638, 0953052, 9963391, 7362665, 42980765, 5226996, 3931360, 2518055, 1090440, 40847499, 5925875 #### [facility] [address], [place] [address]Lstolslcwd (Bld) [Mass/Vol]13.5 g/eLDzogzi05.0-16.0[facility] HospitalComment on above:Performed By: #### 38064970, 9784692, 0454223, 1803794, 77919784, 2649433, 3593969, 1034220, 3946172, 59643716, 8808191 #### [facility] [address], [place] [address]QIY (RBC) [Entitic mass]29.4 aiBoubmc76.0-34.0[facility] HospitalComment on above:Performed By: #### 92221963, 0980791, 8320209, 6750957, 33824112, 2377520, 2976861, 7969556, 3802270, 80912187, 1133776 #### [facility] [address], [place] [address]PBHN (RBC) [Mass/Vol]33.7 g/kBMewvht60.3-35.7FParkview HealthComment on above:Performed By: #### 33699510, 3114727, 7502139, 3996872, 72514480, 0957737, 1167308, 7913433, 4136454, 29655718, 8839269 #### [facility] [address], [place] [address]CHK (RBC) [Entitic vol]87.4 cEItixdi61.0-100.0[facility] HospitalComment on above:Performed By: #### 53488886, 6024420, 9413075, 6344633, 59208440, 6571369, 4066253, 3290787, 4068192, 40641980, 3548530 #### [facility] [address], [place] [address]Anmtnoqh mean volume (Bld) [Entitic vol]8.5 fLNormal6.4-10.8 [facility] HospitalComment on above:Performed By: #### 63074262, 9456429, 1499845, 6856878, 21826588, 4181795, 5649984, 1703118, 9409697, 31384749, 9553059 #### [facility] [address], [place] [address]Roqnlxabs (Bld) [#/Vol]244.0 E9/LQsidnp095.0-500.0[facility] HospitalComment on above:Performed By: #### 72821764, 1838868, 1426639, 5612781, 11433127, 5259246, 6206454, 2660314, 5510992, 85071821, 4861539 #### [facility] [address], [place] [address]EQV (Bld) [#/Vol]4.6 E12/LNormal4.3-5.9[facility] HospitalComment on above:Performed By: #### 18148457, 0605299, 1928349, 8314995, 77660471, 4796457, 4176572, 5387436, 8690740, 47203067, 9053077 #### [facility] [address], [place] [address]CVI corrected for nucl RBC Auto (Bld) [#/Vol]7.9 E9/LNormal 4.0-11.0[facility] HospitalComment on above:Performed By: #### 61916497, 6139889, 0509282, 2657955, 18031271, 4720061, 0065990, 1768846, 5338381, 85964588, 9862788 #### [facility] [address], [place] [address]C-Yuodpxx 66-85-8512Izobyp D-dimer FEU (PPP) [Mass/Vol]265 ng/iIPsaikr379-024IcuihxHolmes County Joel Pomerene Memorial HospitalComment on above:Result Comment: This D-Dimer assay [...] skin infections Liver cirrhosis PregnancyPerformed By: #### 07850949, 6450835, 8840259, 4164095, 22254361, 4651353, 2471347, 5225685, 8567147, 01241772, 8968096 #### [facility] [address], [place] [address]BO Clinical Summaryon 32-27-4455IQ Clinical Summary [address] [address] ED Clinical Summary Person Information Name: ARIADNA HALEY [facility] Age: 38 Years : 1980 12:00 AM Sex: Female Language: Luxembourger PCP: Charles Nicole DO Marital Status: Single Phone: [phone] Visit Id: Visit Reason: Chest pain; CHEST [...] 01/11/2019 6:42 PM 01/11/2019 6:42 PM ADDRESS: [address] [place] [id number] PHYS DOC NOTES: MEDICAL INFORMATION: Prescriptions Given: PATIENT EDUCATION INFORMATION: Instructions: Smoking Cessation; Chest Pain (Nonspecific) Follow up: With: Address: When: [place] [address] Business (1) Within 2 to 3 days Comments: Return to ED if symptoms worsen DIAGNOSIS: 1:Chest painNormalFisher Pushmataha Medical CenterED Note-Physicianon [id number] Note-PhysicianBasic Information Time Seen: Orin Browne DO [...] Charles Nicole Within 2 to 3 days [address] [place] [address]- Business (1) Additional Instructions: Return [...] Lymph Auto: 28 % (01/11/19 16:46:00 EDT) [place] Auto: 7 % (01/11/19 16:46:00 EDT) Eos Auto: 1.9 % (01/11/19 16:46:00 EDT) Basophil Auto: 0.8 % (01/11/19 16:46:00 EDT) Neutro Absolute: 4.9 E9/L (01/11/19 16:46:00 EDT) Lymph Absolute: 2.2 E9/L (01/11/19 16:46:00 EDT) [place] Absolute: 0.6 E9/L (01/11/19 16:46:00 EDT) Eos [...] ECG Signed By: Orin Browne DO 01/11/2019 15:54:18[facility] Comment on above:Result Comment: Electronically Signed By: Orin Browne DO\.br\Date and Time Signed: 01/11/19 18:36 EDTED Patient Education Noteon [id number] Patient Education NoteFamily Medicine Smoking Cessation Quitting [...] and skin patches. Some may be available sikm-ezu-ymrssno and others require a prescription. ? Antidepressant [...] Document Reviewed: 08/18/2012 ExitCare? Patient Information ?2014 WebNotes. This information is not intended to replace [...] Document Reviewed: 12/13/2008 ExitCare? Patient Information ?2014 [employer], [employer]. This information is not intended to replace advice given to you by your health care provider. Make sure you discuss any questions you have with yourhealth care provider.[facility] Patient Summaryon [id number] Patient Summary [address] [address] Patient Discharge Instructions Person Information Name: ARIADNA HALEY Age: 38 Years Arrival Date: 01/11/2019 3:44 PM Discharge Diagnosis: 1:Chest pain Primary Care Physician: Charles Nicole DO Provider Information Primary Provider: Orin Browne DO [employer] Room Attendant:None The exam and treatment you received in the Emergency Department were for an urgent problem and are not intended as complete care. It is important that you follow up with a doctor, nurse practitioner,or physician?s administrative library assistant for ongoing care. If your symptoms become worse or you do not improve as expected and you are unable to reach your usual health care provider, you should return to the Emergency Department. We are available 24 hours a day. ARIADNA HALEY has been given the following list of patient education materials, prescriptions and follow-up instructions: Follow-up Instructions: With: Address: When: [place] [address] Business (1) Within 2 to 3 days [...] opioids can be used to help relieve nsbcnggw-uk-xkctao pain and are often prescribed following a [...] your community drug take- back program or [employer] mail-back program, or flush them down the toilet, following guidance from the Food and Drug Administration (www.fda.gov/Drugs/ResourcesForYou). ? Visit www.cdc.gov/drugoverdose to learn about the risks of opioids abuse and overdose. ? If you believe you may be struggling with addiction, tell your health caregiver services home and ask for guidance or call SAM[employer]?S National Helpline at 7-543-610-DRJM. v Source: US Department of Health and Human Services/Center for Disease Control & Prevention [facility] Medications Given: Medication Dose Route No medications found. Medication Information: Medications to Continue with No Changes Other Medications metformin (metformin 500 mg ER Tab) 250 Milligram By Mouth 2 times a day. Comment: Pharmacy Information: Thank you for choosing [facility] Patient Education Materials: Smoking Cessation Quitting smoking [...] and skin patches. Some may be available byud-cpz-ychyfly and others require a prescription. ? Antidepressant [...] Document Reviewed: 08/18/2012 ExitCare? Patient Information ?2014 [employer]rics [facility]. This information is not intended to replace [...] Document Reviewed: 12/13/2008 ExitCare? Patient Information ?2015 WebNotes. This information is not intended to replace advice given to you by your health care provider. Make sure you discuss any questions you have with yourhealth care provider. TERA Dorantes NICOLE B , have received the following patient education materials/instructions and have verbalized understanding: Patient Education Materials: Smoking Cessation; Chest Pain (Nonspecific) Follow-up Instructions: With: Address: When: Charles Nicole [address] [place] [address] [place] [id number] Business (1) Within 2 to 3 days Comments: Return to ED if symptoms worsen Prescriptions: Patient Signature Date Clinician/Nurse Signature Date 01/11/19 18:42:28NormalHolmes County Joel Pomerene Memorial HospitalProgress Note-Nurseon [id number] Note-NursePt explained discharge instructions and voiced understanding. Pt sts she will follow up with her PCP and denies any furthe questions at this time.NormalHolmes County Joel Pomerene Memorial HospitalTroponin 0 Hr.on 32-11-5722Ykppxzha I.cardiac [Mass/Vol]ng/mLNormal<=0.03Hol[facility]ome[facility] Memorial HospitalComment on above:Result Comment: New Troponin Assay 10/05/13 KRISHNA CA Cutoff value > or = 0.03 ng/mL in conjunction with clinical conditions of myocardial infarction. (www.escardio.org/guidelines)Performed By: #### [id number], 6054347, 1366321, 0360551, 93730558, 7556204, 2538598, 3016845, 9869222, 64377307, 6400903 #### [facility] [address] [place] [id number] 02-33-7538CDO/1.73 sq M predicted among blacks MDRD (S/P/Bld) [Vol rate/Area]mL/min/{1.73_m2}Normal>=59[facility] Comment on above:Order Comment: Order added by Discern Expert.Result Comment: eGFR is race adjusted. AA=.Performed By: #### [id number], 7851451, 3678556, 2884038, 09935524, 8996332, 2566208, 1549530, 5341382, 07526379, 5716766 #### [facility] [address], [place] [address]DJJ/1.73 sq M predicted among non-blacks MDRD (S/P/Bld) [Vol rate/Area]mL/min/{1.73_m2}Normal>=59Hol[facility] Memorial HospitalComment on above: Order Comment: Order added by Discern Expert.Result Comment: Chronic kidney disease could be indicated at eGFR's of less than 60 mL/min/1.73m2. Kidney failure is indicated at less than 15 mL/min/1.73m2.Performed By: #### 53078247, 6082925, 4769159, 8688866, 89551289, 2814958, 7074492, 6566169, 9742073, 54387824, 4847506 #### [facility] [address], [place] [address]GGYXE, LUMBOSACRAL CMPLT(BENDING)on [id number], LUMBOSACRAL CMPLT(BENDING) Patient Name: ARIADNA HALEY STUDY: SPINE, LUMBOSACRAL; CMPLT(BENDING); 12/05/2018 1:47 pm INDICATION: LUMBAR XR. COMPARISON: None. ACCESSION NUMBER(S): [id number] ORDERING CLINICIAN: KADE EARLY FINDINGS: No lumbar spine fracture. Scattered small endplate osteophytes. Vertebral body and disc space heights are are maintained. 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 No spondylolisthesis. No instability on flexion or extension. IMPRESSION: Degenerative changes of the lumbar spine without instability. Electronically signed by: EARNESTINE MANUEL MDSelect Specialty Hospital [facility] Coding Summary.on [id number] Summary.CODING DATE: 09/15/2018 FINAL [facility] DSCH STATUS: Home (Routine DC) [...] F17.210 Nicotine dependence, cigarettes, uncomplicated Z79.899 Other mcc (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 However, the narrative phrase printed from the coding software may appear abbreviated, or result in slightly different terminology. Coded By: Luz Judd Date Saved: 09/15/2018 07:15 amNormalHolmes County Joel Pomerene Memorial HospitalAuto Diffon 11-96-5030Trvizngog/100 WBC (Bld)0.6 %Normal0.0-2.0[facility] Comment on above:Order Comment: Order Added by Discern Expert.Performed By: #### [id number], 9430664, 2579215, 7318839, 30953014, 5571753, 0961872, 2568001, 4265967, 00277372, 5504844 #### [facility] [address], [place] [address]Nddefdvvp/Leukocytes Auto (Bld) [Pure # fraction]0.1 E9/LNormal 0.0-0.2FParkview HealthComment on above:Order Comment: Order Added by Discern Expert.Performed By: #### 64174378, 4043346, 4524214, 1247842, 81984176, 8006540, 6002464, 2595683, 4579367, 48607953, 9526766 #### [facility] [address], [place] [address]Pbhcmlznnij/100 WBC (Bld)2.2 %Normal0.0-8.0[facility] Memorial HospitalComment on above:Order Comment: Order Added by Discern Expert.Performed By: #### 51027606, 9628973, 9255760, 9980010, 32948845, 1444948, 7687367, 6608135, 7129766, 81845028, 5785185 #### [facility] [address], [place] [address]Aupyerrkzls/Leukocytes Auto (Bld) [Pure # fraction]0.2 E9/L Normal0.0-0.5FParkview HealthComment on above:Order Comment: Order Added by Discern Expert.Performed By: #### 25319449, 0255349, 6656486, 4944043, 93795365, 4626330, 2844703, 7608550, 6292814, 92845035, 4856634 #### [facility] [address], [place] [address]Dytoaassckx/100 WBC (Bld)30.6 %Lardmq51.0-50.0[facility] Memorial HospitalComment on above:Order Comment: Order Added by Discern Expert. Performed By: #### 55457408, 7541185, 0281970, 7350391, 76909248, 3663575, 5937989, 6675119, 7060751, 87548772, 7740620 #### [facility] [address] [place], [place] [address]Wfwrhezfmop/Leukocytes Auto (Bld) [Pure # fraction]3.0 E9/L Normal1.0-4.0[facility] Memorial HospitalComment on above:Order Comment: Order Added by Discern Expert.Performed By: #### 34012726, 8592051, 7591665, 2388010, 32808093, 1370820, 8184080, 7869012, 1646361, 94119185, 8293375 #### [facility] [address], [place] [address]Ojgsfcbwc/100 WBC (Bld)7.2 %Normal4.0-14.0[facility] Memorial HospitalComment on above:Order Comment: Order Added by Discern Expert.Performed By: #### 29084913, 3804253, 9985208, 3699595, 29917736, 3547389, 8117645, 3512647, 6548563, 65445500, 5559872 #### [facility] [address] [place], [place] [address]Aakkmqrqz/Leukocytes Auto (Bld) [Pure # fraction]0.7 E9/LNormal 0.2-1.0[facility] Memorial HospitalComment on above:Order Comment: Order Added by Discern Expert.Performed By: #### 74064946, 4942361, 5684997, 2798307, 52359750, 3583329, 6006420, 1241152, 2105809, 42530767, 1129999 #### [facility] [address], [place] [address]Dtvlyttqlsj/100 WBC (Bld)59.4 %Jycezb71.0-75.0[facility] Memorial HospitalComment on above:Order Comment: Order Added by Discern Expert. Performed By: #### 23553145, 7843887, 9752378, 9266585, 36746968, 0506531, 3478461, 3018274, 9502273, 42056823, 6625123 #### [facility] [address], [place] [address]Aqubszvfanq/Leukocytes Auto (Bld) [Pure # fraction]5.9 E9/L Normal2.0-7.5FParkview HealthComment on above:Order Comment: Order Added by Discern Expert.Performed By: #### 48587982, 9734085, 1101471, 4713056, 74798839, 5947327, 2773732, 2091927, 3009033, 59525098, 7450004 #### [facility] [address] [place], [place] [address]TAEhj 24-77-2642Olsafjmltt [Mass/Vol]0.6 mg/dLNormal0.5-1.3 [facility] HospitalComment on above:Performed By: #### 21153310, 2216426, 1387061, 2310229, 52834485, 7623207, 2199777, 5153399, 5507117, 79459194, 3514471 #### [facility] [address] [place], [place] [address]Rqam nitrogen [Mass/Vol]15 mg/dLNormal5-21[facility] Memorial HospitalComment on above:Performed By: #### 58370849, 3562428, 0232493, 3197786, 67808767, 6703653, 0698011, 2321423, 9495311, 97998141, 9956199 #### [facility] [address] [place], [place] [address]Umcv nitrogen/Creatinine [Mass ratio]25 No FdoeiHhyx78-97JnphxwHolmes County Joel Pomerene Memorial HospitalComment on above:Performed By: #### 32939796, 3288427, 1928462, 7155968, 51354913, 0683789, 0237841, 0593584, 8205535, 99842955, 6546001 #### [facility] [address] [place], [place] [address]Viqij gap [Moles/Vol]13 mmol/LNormal6-16[facility] Memorial HospitalComment on above:Performed By: #### 44812222, 2399186, 7750644, 6816999, 31918191, 6814643, 3695695, 3600519, 7628802, 34514506, 9711147 #### [facility] [address], [place] [address]Rrdylfw [Mass/Vol]9.5 mg/dLNormal8.9-11.1FParkview HealthComment on above:Performed By: #### 50499374, 1552056, 2095886, 2536922, 53240541, 3424978, 2695412, 9550798, 4134300, 63904544, 6665098 #### [facility] [address], [place] [address]Difcngzh [Moles/Vol]103 mmol/DDfnvlt703-420ObunccHolmes County Joel Pomerene Memorial HospitalComment on above:Performed By: #### 39519571, 8280522, 2950970, 9096006, 56569592, 4999155, 3190071, 4415759, 7602073, 64565257, 4303603 #### [facility] [address], [place] [address]WF6 [Moles/Vol]24 mmol/UXxodtl73-17CtarfjHolmes County Joel Pomerene Memorial Hospital Comment on above:Performed By: #### 04775571, 8577505, 4111885, 3004541, 78413340, 3885703, 9365791, 1717415, 7889127, 20588212, 1933067 #### [facility] [address], [place] [address]Vcuqcxv [Mass/Vol]102 mg/pXNbvwrv11-614FysoizHolmes County Joel Pomerene Memorial HospitalComment on above:Result Comment: If this glucose result represents a fasting glucose, interpretation should refer tothe following reference range: 55-99 mg/dLPerformed By: #### 49834929, 8583015, 0302801, 4319009, 70846275, 7737374, 4964599, 1532112, 6283669, 64821040, 7722501 #### [facility] [address], [place] [address]Xzlzqevjw [Moles/Vol]3.6 mmol/LNormal3.5-5.3FParkview HealthComment on above:Performed By: #### 38885517, 4804237, 5662268, 7454238, 49109195, 2105484, 3935304, 7403811, 5657369, 35199809, 7948563 #### [facility] [address], [place] [address]Jqzzfy [Moles/Vol]136 mmol/HCxzblu792-417ByhfssHolmes County Joel Pomerene Memorial HospitalComment on above:Performed By: #### 18761651, 6376789, 1534153, 8990214, 22696298, 4509541, 8911640, 8553999, 5130842, 73858625, 8156656 #### [facility] [address], [place] [address]TTA w/ Auto Diffon 99-73-0548Awrsgdxofvv distribution width (RBC) [Ratio]14.2 %Qtlhoz88.9-14.2FParkview HealthComment on above: Performed By: #### 82920063, 9144414, 0763232, 8051847, 20297013, 1945762, 5478761, 7851212, 4250261, 99602597, 6365669 #### [facility] [address], [place] [address]Oclalfnfus (Bld) [Volume fraction]39.4 %Apvulv55.0-46.0[facility] Memorial HospitalComment on above:Performed By: #### 53845487, 6504521, 7725858, 2678162, 33822722, 6888847, 9386338, 3744891, 1731591, 48369905, 5369853 #### [facility] [address], [place] [address]Tbupcwlyjd (Bld) [Mass/Vol]13.3 g/gRHlfsvf67.0-16.0[facility] Memorial HospitalComment on above:Performed By: #### 97837511, 8167273, 3495922, 8078359, 83094450, 4738429, 1222789, 9590943, 5001121, 41356164, 3583541 #### [facility] [address], [place] [address]UZE (RBC) [Entitic mass]29.2 oiAkpdfc78.0-34.0[facility] Memorial HospitalComment on above:Performed By: #### 21043603, 7271495, 3033584, 8270640, 84193952, 2645803, 5192812, 8554318, 2658693, 26819134, 1062755 #### [facility] [address], [place] [address]HUPL (RBC) [Mass/Vol]33.8 g/tEMqdzzs36.3-35.7FParkview HealthComment on above:Performed By: #### 76212331, 0439168, 6929214, 9041984, 14293016, 1662842, 8824059, 8863755, 4533263, 24435256, 4354637 #### [facility] [address], [place] [address]OYH (RBC) [Entitic vol]86.6 vLAvghxw52.0-100.0[facility] Memorial HospitalComment on above:Performed By: #### 53200205, 6631546, 8545282, 5207511, 73657119, 2982610, 0637084, 1864249, 3051044, 56056128, 5108843 #### [facility] [address], [place] [address]Elbtltpt mean volume (Bld) [Entitic vol]8.8 fLNormal6.4-10.8 [facility] Memorial HospitalComment on above:Performed By: #### 30443845, 8427139, 9283905, 1203882, 28705351, 3285673, 8966189, 5032698, 8965720, 28714491, 6740412 #### [facility] [address] [place] [address]Jnbzydjmj (Bld) [#/Vol]307.0 E9/ENopkog887.0-500.0[facility] Memorial HospitalComment on above:Performed By: #### 69190400, 0649345, 5271606, 1784100, 31065281, 0667365, 9863717, 0425961, 7320857, 15766174, 2354876 #### [facility] [address], [place] [address]NXO (Bld) [#/Vol]4.6 E12/LNormal4.3-5.9[facility] HospitalComment on above:Performed By: #### 04775305, 1927192, 0612625, 5339771, 38946240, 1678946, 6573591, 8962870, 5583903, 04986289, 4081239 #### [facility] [address], [place] [address]JRN corrected for nucl RBC Auto (Bld) [#/Vol]9.9 E9/LNormal 4.0-11.0[facility] Memorial HospitalComment on above:Performed By: #### 31880683, 0673108, 6669988, 3491966, 68713128, 6427140, 1752670, 2686205, 1445920, 34955793, 8405312 #### [facility] [address], [place] [address]VWwj 83-59-2184WA [Catalytic activity/Vol]53 Int._Unit/LNormal 14-261[facility] Memorial HospitalComment on above:Performed By: #### 99684743, 4198817, 3685416, 7095248, 57624583, 5900085, 4566730, 8001099, 4795528, 50580503, 3270755 #### [facility] [address] [place] [address] Clinical Summaryon [id number] Clinical Summary [address] [address] ED Clinical Summary Person Information Name: ARIADNA HALEY [facility] Age: 37 Years : 1980 12:00 AM Sex: Female Language: Luxembourger PCP: Charles Nicole DO Marital Status: Single Phone: [phone] Visit Id: Visit Reason: Anxiety; Paraesthesia; NUMBNESS [...] 12:17 AM 09/14/2018 12:17 AM ADDRESS: [address] [place] [address] [place] [id number] PHYS DOC NOTES: MEDICAL INFORMATION: Prescriptions Given: Prescription Display gabapentin (gabapentin 100 mg Cap) 100 mg = 1 cap(s), Oral, Daily, X 7 day(s), # 7 cap(s), Refills(s) 0, Pharmacy: [facility] [place] [facility]24 gabapentin (gabapentin 100 mg Cap) 100 mg = 1 cap(s), Oral, Daily, X 7 day(s), # 7 cap(s), Refills(s) 0, Pharmacy: [facility]/pharmacy #[id number] magnesium oxide (magnesium oxide 400 mg Tab) 400 mg = 1 tab(s), Oral, Daily, X 7 day(s), # 7 tab(s), Refills(s) 0, Pharmacy: [facility] [place] #24 magnesium oxide (magnesium oxide 400 mg Tab) 400 mg = 1 tab(s), Oral, Daily, X 7 day(s), # 7 tab(s), Refills(s) 0, Pharmacy: [facility]/pharmacy #[id number] Home Meds Display metformin (metformin 500 mg ER Tab) 250 mg, Oral, BID, Refills(s) 0 PATIENT EDUCATION INFORMATION: Instructions: Paresthesia, Ozcy-cw-Dalj; Restless Legs Syndrome Follow up: With: Address: [facility] [address] [place] [address] Business (1) Within 1 to 2 days Comments: neurologist you may also follow up with him With: Address: When: [address] [address] Business (1) Within 1 to 2 days Comments: Return to ED if symptoms worsen DIAGNOSIS: 1:Restless leg syndromeNormalBonilla Pollard Medical CenterED Note-Nursingon 60-30-4317SB Note-NursingPt up to RR, gait steady.[facility] CenterED Note-NursingAware of need for urine specimen, denies urge at present, states will notify when able to produce sample, will monitor.[facility] CenterED Note-Physicianon [id number] Note-PhysicianBasic Information Time Seen: Génesis Lozoya DO [...] 1 to 2 days [facility] [address] [place] [address]- business (1) Additional Instructions: neurologist you may also follow up with him Charles Nicole Within 1 to [address] [place] [address]- Business (1) Additional Instructions: Return to ED if symptoms worsen Patient Education Paresthesia, Gmcf-vb-Pxoa Restless Legs Syndrome Problem List/Past Medical History [...] Lymph Auto: 30.6 % (09/13/18 23:03:00 EDT) [place] Auto: 7.2 % (09/13/18 23:03:00 EDT) Eos Auto: 2.2 % (09/13/18 23:03:00 EDT) Basophil Auto: 0.6 % (09/13/18 23:03:00 EDT) Neutro Absolute: 5.9 E9/L (09/13/18 23:03:00 EDT) Lymph Absolute: 3 E9/L (09/13/18 23:03:00 EDT) [place] Absolute: 0.7 E9/L (09/13/18 23:03:00 EDT) Eos [...] 00:08:00 EDT) Diagnostic Results No qualifying data available.[facility] HospitalComment on above: Result Comment: Electronically Signed By: Génesis Lozoya DO\.br\Date and Time Signed: 09/14/18 01:59 EDTED Patient Education Noteon [id number] Patient Education NoteFamily Medicine Paresthesia Paresthesia is [...] Document Reviewed: 01/29/2012 ExitCare? Patient Information ?2015 WebNotes. This information is not intended to replace [...] ? Drawing. ? Crawling. ? Worming. ? [place]. ? Tingling. ? Pins and needles. ? [...] Document Reviewed: 08/06/2011 ExitCare? Patient Information ?2014 [employer] [facility]. This information is not intended to replace advice given to you by your health care provider. Make sure you discuss any questions you have with yourhealth care provider.[facility] Patient Summaryon [id number] Patient Summary [place] [id number] Patient Discharge Instructions Person Information Name: ARIADNA HALEY Age: 37 Years Arrival Date: 09/13/2018 10:16 PM Discharge Diagnosis: 1:Restless leg syndrome Primary Care Physician: Charles Nicole DO Provider Information Primary Provider: Génesis Lozoya DO [employer] Room Attendant:None The exam and treatment you received in the Emergency Department were for an urgent problem and are not intended as complete care. It is important that you follow up with a doctor, nurse practitioner,or physician?s administrative library assistant for ongoing care. If your [...] Address: When: Sayda Kelley [facility], [address] [place], [place] [address] [address] Business (1) Within 1 to 2 days Comments: neurologist you may also follow up with him With: Address: When: Charles Nicole [address] [place] [address] Business (1) Within 1 to 2 days Comments: Return to ED if symptoms worsen In the event that this physician does not participate in your insurance network, please consult with your insurance company to find a nearby participating provider. Patient Education Materials: Paresthesia, Dngq-tx-Vwym; Restless Legs Syndrome A MESSAGE TO ALL PATIENTS REGARDING OPIOIDS PRESCRIPTION OPIOIDS: WHAT YOU NEED TO KNOW Prescription opioids can be used to help relieve jiruzcci-sm-cefbvo pain and are often prescribed following a [...] your community drug take- back program or Ship[employer] mail-back program, or flush them down the toilet, following guidance from the Food and Drug Administration (www.fda.gov/Drugs/ResourcesForYou). ? Visit www.cdc.gov/drugoverdose to learn about the risks of opioids abuse and overdose. ? If you believe you may be struggling with addiction, tell your health caregiver services home and ask for guidance or call [facility]?S National Helpline at [id number] f Source: [place] Department of Health and Human Services/Center for Disease Control & Prevention [facility] Medications Given: Medication Dose Route Sodium Chloride 0.9% intravenous solution 1000.00 mL Initial Volume 1000.00 mL/hr IV Piggyback Left Mid Forearm Medication Information: New Medications [facility]/pharmacy #[id number], [address], [place] [id number], [phone] gabapentin (gabapentin 100 mg Cap) 1 Capsules By Mouth every day for 7 Days. Refills: 0. magnesium oxide (magnesium oxide 400 mg Tab) 1 Tabs By Mouth every day for 7 Days. Refills: 0. [facility], [address], [place] [id number], [phone] gabapentin (gabapentin 100 mg Cap) 1 Capsules [...] for choosing [facility] Patient Education Materials: Paresthesia Paresthesia is a [...] Document Reviewed: 01/29/2012 ExitCare? Patient Information ?2015 [employer]. This information is not intended to replace [...] ? Drawing. ? Crawling. ? Worming. ? [place]. ? Tingling. ? Pins and needles. ? [...] Document Reviewed: 08/06/2011 ExitCare? Patient Information ?2015 [facility], [facility]. This information is not intended to replace advice given to you by your health care provider. Make sure you discuss any questions you have with yourhealth care provider. TERA Dorantes NICOLE B , have received the following patient education materials/instructions and have verbalized understanding: Patient Education Materials: Paresthesia, Raty-vm-Fmqy; Restless Legs Syndrome Follow-up Instructions: With: Address: When: Sayda Kelley [facility], [place] [address] Business (1) Within 1 to 2 days Comments: neurologist you may also follow up with him With: Address: When: Charles Nicole [address] [place] [address] [facility] (1) Within 1 to 2 days Comments: Return to ED if symptoms worsen Prescriptions: [gabapentin (gabapentin 100 mg Cap)] [gabapentin (gabapentin 100 mg Cap)] [magnesium oxide (magnesium oxide 400 mg Tab)] [magnesium oxide (magnesium oxide 400 mg Tab)] Patient Signature Clinician/Nurse Signature Date 09/14/18 00:21:38NormalHolmes County Joel [facility]omerene Memorial HospitalHep Func Panelon 09-14-2018 Bilirubin.direct [Mass/Vol]UTCAbnormal0.1-0.9[facility] HospitalComment on above:Result Comment: Result verified by Discern Rule. Performed result UTC (Unable to Calculate) was sent as an Alpha code due the inability to calculate a valid numeric value.Performed By: #### [id number], 5419984, 0552032, 6600415, 39778267, 2181071, 2842214, 8966067, 7027338, 51392449, 7877586 #### [facility] [address], [place] [address]Hrqkvvw [Mass/Vol]1.1 g/dLNormal1.1-2.2FParkview HealthComment on above:Performed By: #### [id number], 2852701, 8736916, 9938866, 21946665, 8320832, 9171113, 3133477, 2861769, 61135624, 5146795 #### [facility] [address], [place] [address]Uxlkmix [Mass/Vol]4.1 g/dLNormal3.3-5.0[facility] HospitalComment on above:Performed By: #### [id number], 7305371, 5280559, 5905803, 83474536, 2050621, 7753393, 6509146, 4496694, 81562160, 8366917 #### [facility] [address] [place] [address]VCS [Catalytic activity/Vol]69 Int._Unit/HIpltfa45-08DguznfHolmes County Joel Pomerene Memorial HospitalComment on above:Performed By: #### 44764279, 4637096, 3713140, 2648198, 23889298, 2444111, 9708018, 3474438, 5344467, 02365032, 2074122 #### [facility] [address] [place] [address]RXJ No additional P-5'-P [Catalytic activity/Vol]27 Int._Unit/L Normal6-46[facility] HospitalComment on above:Performed By: #### 47610444, 8700802, 1067056, 7384954, 14904313, 1159539, 2433785, 4600127, 3628208, 50814627, 1354239 #### [facility] [address] [place] [address]YWD [Catalytic activity/Vol]16 Int._Unit/LNormal5-43[facility] HospitalComment on above:Performed By: #### 25317910, 1340065, 8145950, 2847876, 52088641, 1401254, 6151524, 0664432, 8923171, 65782391, 4646488 #### [facility] [address] [place] [address]Lpghotnwe [Mass/Vol]0.5 mg/dLNormal0.0-1.1FParkview HealthComment on above:Performed By: #### 42210359, 4882991, 9100908, 6653803, 18890940, 3003164, 5826777, 3928166, 4637315, 16920109, 5310389 #### [facility] [address] [place] [address]Stbyihxja.direct [Mass/Vol]mg/dLNormal0.1-0.4FParkview HealthComment on above:Performed By: #### 87312386, 6992229, 1584221, 5034753, 51242726, 4794942, 8759225, 1705807, 0648029, 88447389, 6896163 #### [facility] [address], [place] [address]Tgouaxea (S) [Mass/Vol]3.7 g/dLNormal1.4-4.0[facility] Memorial HospitalComment on above:Performed By: #### 04676203, 6686347, 9107879, 7937581, 72046060, 2965955, 2254496, 7686913, 6861067, 68423169, 2476713 #### [facility] [address], [place] [address]Urinltg [Mass/Vol]7.8 g/dLNormal6.0-7.8[facility] Memorial HospitalComment on above:Performed By: #### 64975915, 7375686, 5640367, 1536448, 01568287, 6423976, 2197793, 6044082, 4077534, 83443167, 1867123 #### [facility] [address], [place] [address]Qiarmvviolu 40-46-9097Rxmtzgaed [Mass/Vol]1.9 mg/dLNormal 1.3-2.4FParkview HealthComment on above:Performed By: #### 69454445, 3072862, 4521500, 2893898, 12085564, 1546556, 4434209, 5602223, 1160125, 83564959, 4063808 #### [facility] [address], [place] [address]Dqprllmukwn 76-76-5356Dbsewrydw [Mass/Vol]9 ng/mLNormal<=69 [facility] HospitalComment on above:Performed By: #### 01318054, 8123379, 0405850, 4946102, 05352083, 0770618, 2630103, 1946578, 6831956, 68648175, 4926485 #### [facility] [address], [place] [address]SO & PTTon 69-41-7615xYEL Coag (PPP) [Time]34.5 second(s)Normal 25.1-36.5Fisher [facility] Finan CenterComment on above:Result Comment: Heparin therapeutic range (represented by Anti-Factor Xa activity of 0.2 - 0.4 U/mL) corresponds to PTT of 56.6 - 109.0 sec.Performed By: #### 77924528, 7148889, 7770760, 5455025, 14663822, 6315119, 5364241, 9434195, 5829289, 99245823, 1804038 #### [facility] [address], [place] [address]WLA Coag (PPP) [Relative time]1.0 {INR}[facility] Memorial HospitalComment on above:Result Comment: INR results are specifically intended to assess patients stabilized on long-term Anticoagulation therapy suggested INR?s ?Less Intensive Anticoagulation? 2.0 ? 3.0 Conventional Range 3.0 ? 4.5Performed By: #### 73552073, 0496551, 8114110, 5972368, 08375672, 1719702, 5419874, 9337562, 2358227, 83170269, 8203864 #### [facility] [address], [place] [address]GJ Coag (PPP) [Time]11.2 second(s)Rkeugt83.2-12.9[facility] Memorial HospitalComment on above:Performed By: #### 17116018, 0415519, 4967024, 2397531, 77995840, 0396842, 5079034, 1785912, 0581166, 71569058, 4790330 #### [facility] [address], [place] [address]Qhpqstamggdb 72-47-3437Owbmzrphh [Mass/Vol]3.8 mg/dLNormal 1.9-4.6Fisher [facility] Fin[facility] CenterComment on above:Performed By: #### 04446643, 9997984, 3814379, 1003455, 35277648, 1536025, 9994246, 3972275, 1685034, 04284212, 1406977 #### [facility] [address], [place] [address]Pfjkhixn 0 Hr.on 83-01-8816Phvxfejj I.cardiac [Mass/Vol]ng/mL Normal<=0.03[facility] Memorial HospitalComment on above:Result Comment: New Troponin Assay 10/05/13 KRISHNA CA Cutoff value > or = 0.03 ng/mL in conjunction with clinical conditions of myocardial infarction. ([email or web address].org/guidelines)Performed By: #### [id number], 7051425, 5406678, 6238669, 32032914, 9276392, 0888043, 3663220, 3262193, 70762494, 6207760 #### [facility] [address], [place] [address]XN With Cult Reflexon 91-10-1657Tlbxwmyk LM Ql (Urine sed)TRACE NormalTraceHolmes County Joel Pomerene Memorial HospitalComment on above:Performed By: #### 66795392, 5861917, 0892934, 7907078, 09687070, 0183993, 4623606, 0934535, 7635298, 45311129, 9803130 #### [facility] [address], [place] [address]Jrkhskwcy Ql (U)NegativeNormalNegativeHolmes County Joel Pomerene Memorial HospitalComment on above:Performed By: #### 55000358, 0713584, 7592436, 0163047, 66570927, 5715438, 9900446, 8933008, 4352183, 79693423, 6943097 #### [facility] [address], [place] [address]Swxwtkm (U)CLEARNormalClearHolmes County Joel Pomerene Memorial HospitalComment on above:Performed By: #### 38753978, 2251642, 6040118, 4711465, 97604902, 2696540, 0608447, 3441491, 9747614, 81931458, 5080148 #### [facility] [address], [place] [address]Rydvo (U)YELLOWNormalYellowAtrium Health Cabarruser Thomas [facility]. Finan CenterComment on above:Performed By: #### 36557271, 9242676, 5544953, 8845017, 47522187, 0348757, 4363795, 8853419, 7454121, 01145490, 3308109 #### [facility] [address], [place] [address]Enwpqzjtei cells.squamous LM.HPF (Urine sed) [#/Area]0-2Normal 0-2Fisher [facility]. Finan CenterComment on above:Performed By: #### 29044691, 9775621, 2112225, 5003148, 19403351, 3915013, 8601258, 9043735, 3758048, 47277554, 5755747 #### [facility] [address], [place] [address]Xpdahsw Test strip (U) [Mass/Vol]NegativeNormalNegativeHolmes County Joel Pomerene Memorial HospitalComment on above:Performed By: #### 88251037, 7765335, 5975831, 1909814, 36311429, 7589322, 1135246, 5058741, 8030999, 08424426, 0765705 #### [facility] [address] [place] [address]Wzsabkomgy Ql (U)NegativeNormalNegativeHolmes County Joel Pomerene Memorial HospitalComment on above:Performed By: #### 75432791, 2906121, 2435876, 3504770, 80224659, 8382588, 8855070, 6332241, 5993282, 32886891, 4123847 #### [facility] [address], [place] [address]Rovueey (U) [Mass/Vol]NegativeNormalNegativeHolmes County Joel Pomerene Memorial HospitalComment on above:Performed By: #### 95927414, 1867222, 3479361, 9360933, 25191183, 5085680, 5227048, 0187610, 5837175, 70677234, 5592337 #### [facility] [address], [place] [address]Xvbamfn.plasma/[place].RBC (Bld) [Mass ratio]5-0Evjdql5-6Hfwkqi [facility]. Finan CenterComment on above:Performed By: #### 30846682, 2897221, 0011920, 7886456, 56273585, 6925912, 3880485, 3718465, 7738190, 03629344, 8042937 #### [facility] [address] [place] [address]Wowax Ql (Urine sed)TRACENormalHolmes County Joel Pomerene Memorial Hospital Comment on above:Performed By: #### 97011890, 1927543, 7231859, 5383297, 81901249, 0375211, 0013681, 2702392, 1955122, 54618319, 0147305 #### [facility] [address], [place] [address]Atbowbs Ql (U)NegativeNormalNegativeHolmes County [facility] Hospital Comment on above:Performed By: #### 26659580, 9752574, 9350738, 9469079, 31431551, 5882613, 3900928, 8554694, 5464645, 29472170, 1945634 #### [facility] [address], [place] [address]sX (U)6.0 [pH]5.0-9.0[facility] Memorial HospitalComment on above:Performed By: #### 25839800, 9456790, 1689939, 0384398, 69963987, 6211586, 3431781, 9986248, 3477798, 45522818, 1752327 #### [facility] [address], [place] [address]Aewqrfu (U) [Mass/Vol]NegativeNormalNegativeHolmes County Joel Pomerene Memorial HospitalComment on above:Performed By: #### 36441482, 5538226, 1189585, 9020762, 79708277, 6101694, 6324431, 8141860, 8579659, 74947076, 2661337 #### [facility] [address] [place] [address]Gkulqzwe gravity (U) [Rel density]1.0101.005-1.030[facility] Memorial HospitalComment on above:Performed By: #### 34216059, 9602622, 7595245, 3975528, 42175075, 8473090, 0053155, 5152567, 0320312, 57563642, 2667889 #### [facility] [address] [place] [address]SA Spec DescClean CatchNormalHolmes County Joel Pomerene Memorial HospitalComment on above:Performed By: #### 38707607, 9928904, 1197190, 3380127, 26190211, 5466968, 5167808, 3174538, 2501360, 59082879, 5057247 #### [facility] [address] [place] [address]Xldtpgtpvrqh Qn (U)0.2 {Carmella'U}/dLNormal0.0-1.0[facility] HospitalComment on above:Performed By: #### 39772428, 9313644, 1404816, 8901323, 72443680, 1051524, 8536135, 6684123, 3058689, 58188375, 7374038 #### [facility] [address] [place] [address]DTE Auto Ql (U)NegativeNormalNegativeHolmes County Joel Pomerene Memorial HospitalComment on above:Performed By: #### 86356448, 8040437, 2957349, 6057875, 72179065, 0137065, 2474021, 0194462, 7388683, 66616098, 5132490 #### [facility] [address], [place] [address]TMG LM.HPF (Urine sed) [#/Area]2-1Cnbjtf6-1Uxeaac [facility]. Fin[facility] CenterComment on above:Performed By: #### 21717102, 7907659, 7157550, 7887544, 78879922, 8280089, 2986640, 1355525, 5596745, 36208059, 7659543 #### [facility] [address], [place] [address]UO Chest Single Viewon 62-33-8827DS Chest Single ViewExam Date/Time: 09/13/2018 23:44 EDT [...] Sanjay Alcocer M.D. Transcribed by: minoo Technologist: [facility] HospitalXR FOOT LEFT (MIN 3 VIEWS)on 69-09-0171DI FOOT LEFT (MIN 3 VIEWS)Radiology exam is complete. No Radiologist dictation. Please follow up with ordering provider. Final resultNoOhio Valley Surgical HospitalXR FOOT RIGHT (MIN 3 VIEWS)on 48-94-8831CT FOOT RIGHT (MIN 3 VIEWS)Radiology exam is complete. No Radiologist dictation. Please follow up with ordering provider. Final resultNormalSt. Francis HospitaleGFRon 14-25-2568KRJ/1.73 sq M predicted among blacks MDRD (S/P/Bld) [Vol rate/Area]mL/min/{1.73_m2}Normal>=59[facility] HospitalComment on above:Order Comment: Order added by Discern Expert.Result Comment: eGFR is race adjusted. AA=.Performed By: #### 94948989, 5374260, 2536143, 2510098, 07995980, 5014219, 2698324, 2016628, 0385069, 24048328, 1027007 #### [facility] [address], [place] [address]OCC/1.73 sq M predicted among non-blacks MDRD (S/P/Bld) [Vol rate/Area]mL/min/{1.73_m2}Normal>=59FishUPMC Western MarylandComment on above: Order Comment: Order added by Discern Expert.Result Comment: Chronic kidney disease could be indicated at eGFR's of less than 60 mL/min/1.73m2. Kidney failure is indicated at less than 15 mL/min/1.73m2.Performed By: #### 50928279, 0713656, 6409172, 9881152, 30962327, 9065610, 5378409, 7793114, 3528174, 16519515, 0168142 #### [facility] [address] [place] [address] Vital Signs Date TimeVital SignValuePerforming NmzbuigctDrytglga36-97-9463 10:09-0400Body jletve075.2 Bruno Pacheco MD Work Phone: [facility] HospitalVwzjdhdfic64-90-1699 10:09-0400Body mass index (BMI) [Ratio]45.58 kg/o3KemqwiTerence Pacheco MD Work Phone: [facility] HospitalOzzuuphjsz24-10-5659 10:09-0400Body lirfyw173 kg Terence Pacheco MD Work Phone: [facility] HospitalFezorkqawu48-38-2889 11:52-0400Body temperature 98.6 [degF]Tab May MD Work Phone: [facility]10-22-2025 11:52-0400Body weight 131.81 kgTab May MD Work Phone: [facility]10-22-2025 11:52-0400Diastolic blood oyzejudx90 mm[Hg]Tab May MD Work Phone: [facility]10-22-2025 11:52-0400Heart rate95 /minTab May MD Work Phone: [facility]10-22-2025 11:52-0400Respiratory rate18 /Keshia May MD Work Phone: 1([phone] [place], [place] [address]66[address]10-22-2025 11:52-1104LdF8% (BldA) [Mass fraction]96 %Tab May MD Work Phone: 1(885)631-[address] [place], [place] [address]66[address]10-22-2025 11:52-0400Systolic blood vvpiguct244 mm[Hg]Tab May MD Work Phone: 1(226)[address]10-21-2025 09:08-0400Diastolic blood dqccxzox86 mm[Hg]Gay Britt HATCHERY SUPERVISOR-C Work Phone: 1(419)[address] [place], [place] 7447010-21-2025 09:08-0400 Heart rate82 /minPamela Britt HATCHERY SUPERVISOR-C Work Phone: 1(419)[address] [place], [place] 7447010-21-2025 09:08-0400 SaO2% (BldA) [Mass fraction]97 %Gay Britt HATCHERY SUPERVISOR-C Work Phone: 1(419)[address] [place], [place] 7447010-21-2025 09:08-0400 Systolic blood ucefxmaw400 mm[Hg]Gay Britt HATCHERY SUPERVISOR-C Work Phone: 1(419)[address] [place], [place] 7447010-10-2025 17:29-0400 Diastolic blood opvowcox71 mm[Hg]Gay Britt HATCHERY SUPERVISOR-C Work Phone: 1(419)[facility]-[address] [place], [place] 0633310-10-2025 17:29-0400 Heart rate84 /minPamela Britt HATCHERY SUPERVISOR-C Work Phone: 1(419)[address] [place], [place] 7447010-10-2025 17:29-0400 Respiratory rate16 /minPamela Britt HATCHERY SUPERVISOR-C Work Phone: 1(419)[address] [place], [place] 7447010-10-2025 17:29-0400 SaO2% (BldA) [Mass fraction]97 %Gay Britt HATCHERY SUPERVISOR-C Work Phone: 1(377)[address] [place], [place] 7447010-10-2025 17:29-0400 Systolic blood lsizjwyu987 mm[Hg]Gay Britt HATCHERY SUPERVISOR-C Work Phone: 1(419)483-[address] [place], [place] 0633310-10-2025 15:06-0400 Body qhpqco653.18 cmPamela Britt HATCHERY SUPERVISOR-C Work Phone: 1(419)[address]10-10-2025 15:06-0400 Body uuectwratjo97.4 [degF]Gay Britt HATCHERY SUPERVISOR-C Work Phone: 1(419)[address]10-10-2025 15:06-0400 Body .27 kgPamela Britt HATCHERY SUPERVISOR-C Work Phone: 1(419)[address] [place], [place] 7447010-08-2025 13:34-0400 Body qhbsze217.18 cmPamela Britt HATCHERY SUPERVISOR-C Work Phone: 1(419)[address] [place], [place] 7447010-08-2025 13:34-0400 Body mass index (BMI) [Ratio]43.8 kg/h3Xvwdte Britt HATCHERY SUPERVISOR-C Work Phone: 1(419)[address] [place], [place] 7447010-08-2025 13:34-0400 Body kgPamela Britt HATCHERY SUPERVISOR-C Work Phone: 1(419)[address] [place], [place] 7447010-08-2025 13:34-0400 Diastolic blood yggopeqw72 mm[Hg]Gay Britt HATCHERY SUPERVISOR-C Work Phone: 1(419)[address] [place], [place] 7447010-08-2025 13:34-0400 Heart rate99 /minPamela Britt HATCHERY SUPERVISOR-C Work Phone: 1(419)[address]10-08-2025 13:34-0400 Respiratory rate18 /minPamela Britt HATCHERY SUPERVISOR-C Work Phone: 1(419)[address] [place], [place] 7447010-08-2025 13:34-0400 SaO2% (BldA) [Mass fraction]95 %Gay Britt HATCHERY SUPERVISOR-C Work Phone: 1(419)[address]10-08-2025 13:34-0400 Systolic blood eiqpohwz714 mm[Hg]Gay Britt HATCHERY SUPERVISOR-C Work Phone: 1(419)483-[address] [place], [place] 0633310-08-2025 09:25-0400 Body tuzbzo696.2 cmAyolanda Pacheco MD Work Phone: 1(636)[address] [place], [place] 7052610-08-2025 09:25-0400Body mass index (BMI) [Ratio]45.58 kg/w4RxyjbzTerence Pacheco MD Work Phone: 1(916)[address] [place], [place] 7052610-08-2025 09:25-0400Body eofgaa269 kg Terence Pacheco MD Work Phone: 1(035)[address] [place], [place] 7052610-08-2025 09:25-0400Diastolic blood mm[Hg]Terence Pacheco MD Work Phone: 1(034)[address] [place], [place] 7052610-08-2025 09:25-0400Systolic blood uzurdmqu895 mm[Hg]Terence Pacheco MD Work Phone: 1(273)[address] [place], [place] 7052609-24-2025 09:42-0400Body fadxxu389.18 cmPkendrick De La Torre HATCHERY SUPERVISOR-C Work Phone: 1(534)[address]09-24-2025 09:42-0400 Diastolic blood lzwahrzb30 mm[Hg]Gayomer Johnmer HATCHERY SUPERVISOR-C Work Phone: 1(515)[address] [place], [place] 7447009-24-2025 09:42-0400 Heart rate65 /Geovany Johnmer HATCHERY SUPERVISOR-C Work Phone: 1(939)[address]09-24-2025 09:42-0400 SaO2% (BldA) [Mass fraction]97 %Gayomer Johnmer HATCHERY SUPERVISOR-C Work Phone: 1(958)[address]09-24-2025 09:42-0400 Systolic blood csnafscu507 mm[Hg]Gay Johnmer HATCHERY SUPERVISOR-C Work Phone: 1(858)[address] [place], [place] 7447009-10-2025 11:40-0400 Diastolic blood oorhwckb15 mm[Hg]Gay De La Torre HATCHERY SUPERVISOR-C Work Phone: 1(633)[address]09-10-2025 11:40-0400 Heart rate86 /minPamela Britt HATCHERY SUPERVISOR-C Work Phone: 1(538)843-[address] [place], [place] 0633309-10-2025 11:40-0400 Respiratory rate18 /minGay Britt HATCHERY SUPERVISOR-C Work Phone: 1(683)824-[address] [place], [place] 0633309-10-2025 11:40-0400 SaO2% (BldA) [Mass fraction]94 %Gay Johnmer HATCHERY SUPERVISOR-C Work Phone: 1(556)740-[address] [place], [place] 0633309-10-2025 11:40-0400 Systolic blood ellnhikd220 mm[Hg]Gay Johnmer HATCHERY SUPERVISOR-C Work Phone: 1(811)[address]09-10-2025 10:11-0400 Body .18 cmPulia Britt HATCHERY SUPERVISOR-C Work Phone: 1(884)293-[address] [place], [place] 0633309-10-2025 10:11-0400 Body dfioan795 kgPajessea Britt HATCHERY SUPERVISOR-C Work Phone: 1(940)314-[address] [place], [place] 0633309-03-2025 14:20-0400 Diastolic blood rzhyeiva20 mm[Hg]Chair [place] Work Phone: [facility]09-03-2025 14:20-0400Heart rate82 /min Chair [place] Work Phone: [facility]09-03-2025 14:20-0400Respiratory rate 18 /minChair [place] Work Phone: [facility]09-03-2025 14:20-4226CsM2% (BldA) [Mass fraction]98 %Chair [place] Work Phone: [facility]09-03-2025 14:20-0400Systolic blood coetpahw887 mm[Hg]Chair [place] Work Phone: [facility]09-03-2025 10:42-0400Body temperature 97.81 [degF]Chair [place] Work Phone: [facility]08-27-2025 10:38-0400Body eznafk476.18 cmPamela Britt HATCHERY SUPERVISOR-C Work Phone: [facility]08-27-2025 10:38-0400 Diastolic blood klpoafgp79 mm[Hg]Gay De La Torre HATCHERY SUPERVISOR-C Work Phone: [facility]08-27-2025 10:38-0400 Heart rate92 /minGay De La Torre HATCHERY SUPERVISOR-C Work Phone: [facility]08-27-2025 10:38-0400 SaO2% (BldA) [Mass fraction]96 %Gay De La Torre HATCHERY SUPERVISOR-C Work Phone: [facility]08-27-2025 10:38-0400 Systolic blood bnuccqdb727 mm[Hg]Gay De La Torre HATCHERY SUPERVISOR-C Work Phone: [facility]08-21-2025 13:51-0400 Body ptnzokkvtax17.29 [degF]Chair [place] Work Phone: [facility]08-21-2025 13:51-0400Diastolic blood isoaupoo02 mm[Hg]Chair [place] Work Phone: [facility]08-21-2025 13:51-0400Heart rate76 /min Chair [place] Work Phone: [facility]08-21-2025 13:51-0400Respiratory rate 20 /minChair Gabbi Work Phone: [facility]08-21-2025 13:51-7983RqQ9% (BldA) [Mass fraction]98 %Chair [place] Work Phone: [facility]08-21-2025 13:51-0400Systolic blood kgmvlojx927 mm[Hg]Chair [place] Work Phone: [facility]07-24-2025 14:10-0400Diastolic blood gofetfxv86 mm[Hg]Chair Gabbi Work Phone: [facility]07-24-2025 14:10-0400Heart rate83 /min Chair Gabbi Work Phone: [facility]07-24-2025 14:10-0400Respiratory rate 18 /minChair [place] Work Phone: [facility]07-24-2025 14:10-4426RuW5% (BldA) [Mass fraction]96 %Chair [place]bi Work Phone: [facility]07-24-2025 14:10-0400Systolic blood nookkufg099 mm[Hg]Chair [place] Work Phone: [facility]07-22-2025 10:45-0400Body .18 cmPamela Britt HATCHERY SUPERVISOR-C Work Phone: [phone] [place], [place] 0633307-22-2025 10:45-0400 Body mass index (BMI) [Ratio]44.8 kg/o1Vuigyc Britt HATCHERY SUPERVISOR-C Work Phone: [phone] [address] [address] [place], [place] 0633307-22-2025 10:45-0400 Body dczgyl114.72 kgPamela Britt HATCHERY SUPERVISOR-C Work Phone: 1(139)837-[address] [place], [place] 0633307-22-2025 10:45-0400 Diastolic blood snljobro75 mm[Hg]Gay De La Torre HATCHERY SUPERVISOR-C Work Phone: 1(546)787-[address] [place], [place] 0633307-22-2025 10:45-0400 Heart rate63 /minPajessea Britt HATCHERY SUPERVISOR-C Work Phone: 5(028)308-[address] [place], [place] 0633307-22-2025 10:45-0400 Systolic blood coqnoxux701 mm[Hg]Gay Britt HATCHERY SUPERVISOR-C Work Phone: 1(491)858-[address] [place], [place] 0633307-10-2025 09:08-0400 Diastolic blood reyyxzeu55 mm[Hg]Gay Britt HATCHERY SUPERVISOR-C Work Phone: 1(146)589-[address] [place], [place] 0633307-10-2025 09:08-0400 Heart rate64 /minPajessea Britt HATCHERY SUPERVISOR-C Work Phone: 1(803)185-[address] [place], [place] 0633307-10-2025 09:08-0400 SaO2% (BldA) [Mass fraction]98 %Gay De La Torre HATCHERY SUPERVISOR-C Work Phone: [facility]07-10-2025 09:08-0400 Systolic blood mm[Hg]Gay Britt HATCHERY SUPERVISOR-C Work Phone: [facility]07-09-2025 14:46-0400 Body pbsfkftfqaq06.81 [degF]Chair Gabbi Work Phone: [facility]07-09-2025 14:46-0400Diastolic blood bcgyiqlp92 mm[Hg]Chair [place] Work Phone: [facility]07-09-2025 14:46-0400Heart rate77 /min Chair [place] Work Phone: [facility]07-09-2025 14:46-0400Respiratory rate 18 /minChair [place] Work Phone: [facility]07-09-2025 14:46-1312UiB8% (BldA) [Mass fraction]98 %Chair Gabbi Work Phone: [facility] HospitalComment on above:[id number] 14:46-0400Systolic blood tnbyutbk165 mm[Hg]Chair Gabbi Work Phone: [facility]07-09-2025 09:13-0400Body osxjsp530.2 cmVaibhav Carvalho MICROBIOLOGY TECHNICIAN.DIGITAL MEDIA ANALYST Work Phone: [facility]07-09-2025 09:13-0400Body mass index (BMI) [Ratio]45.12 kg/l6KjwculVaibhav Carvalho MICROBIOLOGY TECHNICIAN.DIGITAL MEDIA ANALYST Work Phone: [facility]07-09-2025 09:13-0400Body temperature 97.5 [degF]Vaibhav Carvalho MICROBIOLOGY TECHNICIAN.DIGITAL MEDIA ANALYST Work Phone: [facility]07-09-2025 09:13-0400Body ltahik497.7 kgVaibhav Carvalho MICROBIOLOGY TECHNICIAN.DIGITAL MEDIA ANALYST Work Phone: [facility]07-09-2025 09:13-0400Diastolic blood ywiemmfn26 mm[Hg]Vaibhav Deven MICROBIOLOGY TECHNICIAN.DIGITAL MEDIA ANALYST Work Phone: [facility]07-09-2025 09:13-0400Heart rate88 /min Vaibhav Deven MICROBIOLOGY TECHNICIAN.DIGITAL MEDIA ANALYST Work Phone: [facility]07-09-2025 09:13-0400Respiratory rate 18 /minJaimee Deven MICROBIOLOGY TECHNICIAN.DIGITAL MEDIA ANALYST Work Phone: [facility]07-09-2025 09:13-6311ItX7% (BldA) [Mass fraction]98 %Vaibhav Deven MICROBIOLOGY TECHNICIAN.DIGITAL MEDIA ANALYST Work Phone: [facility]07-09-2025 09:13-0400Systolic blood kdbclkoa403 mm[Hg]Vaibhav Deven MICROBIOLOGY TECHNICIAN.DIGITAL MEDIA ANALYST Work Phone: [facility]06-26-2025 13:47-0400Body temperature 98.01 [degF]Chair [place] Work Phone: [facility]06-26-2025 13:47-0400Diastolic blood mm[Hg]Chair [place] Work Phone: [facility]06-26-2025 13:47-0400Heart rate89 /min Chair [place] Work Phone: [facility]06-26-2025 13:47-0400Respiratory rate 20 /minChair Gabbi Work Phone: [facility]06-26-2025 13:47-4792TjH8% (BldA) [Mass fraction]97 %Chair [place] Work Phone: [facility]06-26-2025 13:47-0400Systolic blood tkgocrzm219 mm[Hg]Chair Gabbi Work Phone: [facility]06-23-2025 11:17-0400Body zxfuli812.18 Hilton LINC Work Phone: [facility]06-23-2025 11:17-0400 Body mass index (BMI) [Ratio]44.1 kg/k9HirlthGay Johnmer HATCHERY SUPERVISOR-C Work Phone: [facility]06-23-2025 11:17-0400 Body kuxije692.91 kgGay Johnmer HATCHERY SUPERVISOR-C Work Phone: [facility]06-23-2025 11:17-0400 Diastolic blood snsafbww41 mm[Hg]Gay Britt HATCHERY SUPERVISOR-C Work Phone: [facility]06-23-2025 11:17-0400 Heart rate96 /minGay Johnmer HATCHERY SUPERVISOR-C Work Phone: 1(053)013-[address] [place], [place] 0633306-23-2025 11:17-0400 Systolic blood cebvibqo592 mm[Hg]Gay Johnmer HATCHERY SUPERVISOR-C Work Phone: [facility]06-10-2025 14:46-0400 Diastolic blood waibzvbp74 mm[Hg]Chair [place] Work Phone: [facility]06-10-2025 14:46-0400Heart rate68 /min Chair Gabbi Work Phone: [facility]06-10-2025 14:46-0400Respiratory rate 20 /minChair Gabbi Work Phone: [facility]06-10-2025 14:46-4633CpQ1% (BldA) [Mass fraction]94 %Chair [place] Work Phone: [facility] HospitalComment on above:[id number] 14:46-0400Systolic blood banruuvh894 mm[Hg]Chair [place] Work Phone: [facility]06-10-2025 09:19-0400Body temperature 97.81 [degF]Chair [place] Work Phone: [facility]05-14-2025 14:16-0400Body mass index (BMI) [Ratio]44.01 kg/o0Toesv Gabbi Work Phone: [facility]05-14-2025 14:16-0400Body temperature 97.59 [degF]Chair Gabbi Work Phone: [facility]05-14-2025 14:16-0400Body plkenp238.5 kgChair [place] Work Phone: [facility]05-14-2025 14:16-0400Diastolic blood ytyrqwwm92 mm[Hg]Chair Gabbi Work Phone: [facility]05-14-2025 14:16-0400Heart rate85 /min Chair [place] Work Phone: [place] [address]-14-2025 14:16-0400Respiratory rate 16 /minChair [place] Work Phone: [facility]05-14-2025 14:16-8967UjM0% (BldA) [Mass fraction]96 %Chair [place] Work Phone: [facility]05-14-2025 14:16-0400Systolic blood ovjeykus022 mm[Hg]Chair [place] Work Phone: [facility]05-12-2025 14:15-0400Body temperature 98.29 [degF]Chair [place] Work Phone: [facility]05-12-2025 14:15-0400Diastolic blood ecxnidnj58 mm[Hg]Chair [place] Work Phone: [facility]05-12-2025 14:15-0400Heart rate76 /min Chair [place] Work Phone: [place] [address]-12-2025 14:15-0400Respiratory rate 16 /minChair Gabbi Work Phone: [place] [address]-12-2025 14:15-7694DgU1% (BldA) [Mass fraction]97 %Chair [place] Work Phone: [facility]05-12-2025 14:15-0400Systolic blood soivlkbf074 mm[Hg]Chair [place] Work Phone: [facility]04-28-2025 13:20-0400Body temperature 97.59 [degF]Chair [place] Work Phone: [place] [address]-28-2025 13:20-0400Diastolic blood ciquqnsa35 mm[Hg]Chair Gabbi Work Phone: [facility]04-28-2025 13:20-0400Heart gnlk729 /minChair [place] Work Phone: [place] [address]-28-2025 13:20-0400Respiratory rate 18 /minChair [place] Work Phone: [facility]04-28-2025 13:20-2739BwU1% (BldA) [Mass fraction]97 %Chair [place] Work Phone: [facility]04-28-2025 13:20-0400Systolic blood yqtckicr445 mm[Hg]Chair Gabbi Work Phone: [facility]04-16-2025 16:17-0400Heart rate90 /min Gay De La Torre HATCHERY SUPERVISOR-C Work Phone: 1(116)988-[address] [place], [place] 0633304-16-2025 16:17-0400 SaO2% (BldA) [Mass fraction]97 %Gay De La Torre HATCHERY SUPERVISOR-C Work Phone: 1(060)155-[address] [place], [place] 0633304-16-2025 13:54-0400 Diastolic blood mm[Hg]Chair [place] Work Phone: [facility]04-16-2025 13:54-0400Heart rate90 /min Chair [place] Work Phone: [place] [address]-16-2025 13:54-0400Respiratory rate 18 /minChair [place] Work Phone: [place] [address]-16-2025 13:54-8791FdK4% (BldA) [Mass fraction]97 %Chair [place] Work Phone: [facility]04-16-2025 13:54-0400Systolic blood qpiwreko195 mm[Hg]Chair Seo Work Phone: [facility]04-16-2025 08:43-0400Body .2 cmTodde Deven MICROBIOLOGY TECHNICIAN.DIGITAL MEDIA ANALYST Work Phone: [facility]04-16-2025 08:43-0400Body mass index (BMI) [Ratio]45.5 kg/r1Ullypi Deven MICROBIOLOGY TECHNICIAN.DIGITAL MEDIA ANALYST Work Phone: [facility]04-16-2025 08:43-0400Body temperature 97.5 [degF]Vaibhav Deven MICROBIOLOGY TECHNICIAN.DIGITAL MEDIA ANALYST Work Phone: [facility]04-16-2025 08:43-0400Body .8 kgVaibhav Deven MICROBIOLOGY TECHNICIAN.DIGITAL MEDIA ANALYST Work Phone: [facility]04-16-2025 08:43-0400Diastolic blood airfhanb89 mm[Hg]Vaibhav Deven MICROBIOLOGY TECHNICIAN.DIGITAL MEDIA ANALYST Work Phone: [facility]04-16-2025 08:43-0400Heart rate77 /min Vaibhav Deven MICROBIOLOGY TECHNICIAN.DIGITAL MEDIA ANALYST Work Phone: [facility]04-16-2025 08:43-0400Respiratory rate 18 /minVaibhav Deven MICROBIOLOGY TECHNICIAN.DIGITAL MEDIA ANALYST Work Phone: [facility]04-16-2025 08:43-3073WyK5% (BldA) [Mass fraction]97 %Vaibhav Deven MICROBIOLOGY TECHNICIAN.DIGITAL MEDIA ANALYST Work Phone: [place] [address]-16-2025 08:43-0400Systolic blood zafimqip411 mm[Hg]Vaibhav Deven MICROBIOLOGY TECHNICIAN.DIGITAL MEDIA ANALYST Work Phone: [facility]04-14-2025 15:04-0400Body kjgqli450.2 cmGordo Barfield MD Work Phone: 1(419)483-[address] [place], [place] [address]Zneydvfstb75-66-8820 15:04-0400Body mass index (BMI) [Ratio]44.32 kg/p0XokuvrGordo Barfield MD Work Phone: [facility] HospitalArhygbupnj23-50-3367 15:04-0400Body lpeyok967.37 kgGordo Barfield MD Work Phone: [facility] HospitalDmoxjovhed47-33-3227 15:04-0400Diastolic blood jmsniruf87 mm[Hg]Gordo Barfield MD Work Phone: [facility] HospitalTppjwqgbkl23-77-0903 15:04-0400Heart zmui496 /min Gordo Barfield MD Work Phone: [facility] HospitalHagxtpavnw68-00-5178 15:04-0400Systolic blood znpyaulk967 mm[Hg]Gordo Barfield MD Work Phone: [facility] HospitalYqlldnxssg53-92-5823 14:36-0400Diastolic blood mm[Hg]Chair Gabbi Work Phone: [facility]03-18-2025 14:36-0400Heart rate83 /min Chair Gabbi Work Phone: [facility]03-18-2025 14:36-0400Respiratory rate 18 /minChair Gabbi Work Phone: [facility]03-18-2025 14:36-2326CoX7% (BldA) [Mass fraction]97 %Chair [place] Work Phone: [facility]03-18-2025 14:36-0400Systolic blood vavbixsm541 mm[Hg]Chair [place] Work Phone: [facility]03-18-2025 10:54-0400Body temperature 98.01 [degF]Chair [place] Work Phone: [facility]03-10-2025 16:05-0400Diastolic blood ikjlbnxl17 mm[Hg]Gay De La Torre HATCHERY SUPERVISOR-C Work Phone: [facility]03-10-2025 16:05-0400 Heart lxvc142 /minJosephinea Britt HATCHERY SUPERVISOR-C Work Phone: [facility]03-10-2025 16:05-0400 SaO2% (BldA) [Mass fraction]96 %Gay De La Torre HATCHERY SUPERVISOR-C Work Phone: [facility]03-10-2025 16:05-0400 Systolic blood cpwkxhcy991 mm[Hg]Gay De La Torre HATCHERY SUPERVISOR-C Work Phone: [facility]03-05-2025 15:06-0500 Body .2 cmLois Holm MD Work Phone: 1(109)[address] [place], [place] 6050303-05-2025 15:06-0500 Body mass index (BMI) [Ratio]44.92 kg/p4GzquudLois Holm MD Work Phone: 1(971)[address]03-05-2025 15:06-0500 Body pkwpbu838.09 kgLois Holm MD Work Phone: 1(085)[address] [place], [place] 6050303-05-2025 15:06-0500 Diastolic blood mm[Hg]Lois Holm MD Work Phone: 1(393)[address] [place], [place] 6050303-05-2025 15:06-0500 Heart rate84 /Rosalie Holm MD Work Phone: 1(496)[address] [place], [place] 6050303-05-2025 15:06-0500 Systolic blood dxsmojap839 mm[Hg]Lois Holm MD Work Phone: 1(539)[address] [place], [place] 6050302-26-2025 11:27-0500 Diastolic blood kgmlyssb02 mm[Hg]Gay De La Torre HATCHERY SUPERVISOR-C Work Phone: [facility]02-26-2025 11:27-0500 Heart rate78 /minJosephinea Britt HATCHERY SUPERVISOR-C Work Phone: [facility]02-26-2025 11:27-0500 Respiratory rate16 /minPajessea Britt HATCHERY SUPERVISOR-C Work Phone: [facility]02-26-2025 11:27-0500 SaO2% (BldA) [Mass fraction]96 %Gay De La Torre HATCHERY SUPERVISOR-C Work Phone: [facility]02-26-2025 11:27-0500 Systolic blood rehclfyd615 mm[Hg]Gay De La Torre HATCHERY SUPERVISOR-C Work Phone: [facility]02-26-2025 09:54-0500 Body edvfeh895.18 cmPulial De La Torre HATCHERY SUPERVISOR-C Work Phone: [facility]02-26-2025 09:54-0500 Body owyvlk496 kgPamelal De La Torre HATCHERY SUPERVISOR-C Work Phone: [facility]02-19-2025 14:16-0500 Body uvtlwpqtxbv66.91 [degF]Marky WARREN-C Work Phone: [facility]02-18-2025 14:30-0500Body temperature 97.39 [degF]Chair [place] Work Phone: [facility]02-18-2025 14:30-0500Diastolic blood echwgexh64 mm[Hg]Chair [place] Work Phone: [facility]02-18-2025 14:30-0500Heart rate69 /min Chair Gabbi Work Phone: [facility]02-18-2025 14:30-0500Respiratory rate 18 /minChair [place] Work Phone: [facility]02-18-2025 14:30-9784GyX6% (BldA) [Mass fraction]98 %Chair Gabbi Work Phone: [facility]02-18-2025 14:30-0500Systolic blood gsxuhjwh229 mm[Hg]Chair [place] Work Phone: [facility]02-17-2025 15:25-0500Diastolic blood aqbrmhfp07 mm[Hg][facility]02-17-2025 15:25-0500Heart yuix626 /min[facility]02-17-2025 15:25-0572QgW0% (BldA) [Mass fraction]97 %[facility]02-17-2025 15:25-0500 Systolic blood mjgnadzu048 mm[Hg][facility]01-21-2025 14:55-0500Diastolic blood ycptjaax02 mm[Hg]Chair Gabbi Work Phone: [facility]01-21-2025 14:55-0500Heart rate70 /min Chair [place] Work Phone: [facility]01-21-2025 14:55-0500Respiratory rate 18 /minChair Gabbi Work Phone: [facility]01-21-2025 14:55-3960AuU7% (BldA) [Mass fraction]98 %Chair [place] Work Phone: [facility]01-21-2025 14:55-0500Systolic blood ozhxromf28 mm[Hg]Chair Gabbi Work Phone: [facility]01-21-2025 08:55-0500Body mass index (BMI) [Ratio]45.08 kg/r8BnfhucVaibhav Carvalho MICROBIOLOGY TECHNICIAN.DIGITAL MEDIA ANALYST Work Phone: [facility]01-21-2025 08:55-0500Body temperature 97.59 [degF]Vaibhav Carvalho MICROBIOLOGY TECHNICIAN.DIGITAL MEDIA ANALYST Work Phone: [facility]01-21-2025 08:55-0500Body .6 kgVaibhav Carvalho MICROBIOLOGY TECHNICIAN.DIGITAL MEDIA ANALYST Work Phone: [facility]01-21-2025 08:55-0500Diastolic blood jvemkwgr97 mm[Hg]Vaibhav Carvalho MICROBIOLOGY TECHNICIAN.DIGITAL MEDIA ANALYST Work Phone: [facility]01-21-2025 08:55-0500Heart rate79 /min Vaibhav Carvalho MICROBIOLOGY TECHNICIAN.DIGITAL MEDIA ANALYST Work Phone: [facility]01-21-2025 08:55-0500Respiratory rate 16 /minVaibhav Carvalho MICROBIOLOGY TECHNICIAN.DIGITAL MEDIA ANALYST Work Phone: [facility]01-21-2025 08:55-5089NeK4% (BldA) [Mass fraction]98 %Vaibhav Carvalho MICROBIOLOGY TECHNICIAN.DIGITAL MEDIA ANALYST Work Phone: [facility]01-21-2025 08:55-0500Systolic blood zxpuzsfi468 mm[Hg]Vaibhav Carvalho MICROBIOLOGY TECHNICIAN.DIGITAL MEDIA ANALYST Work Phone: [facility]01-14-2025 11:37-0500Body mass index (BMI) [Ratio]45.08 kg/m2Oly WARREN Work Phone: [facility] HospitalDnsdndntgc55-64-1637 11:37-0500Body joyxgc267.54 kgOly Temo WARREN Work Phone: [facility] HospitalSexbmojcit36-75-4476 11:37-0500Diastolic blood hjnbuyes41 mm[Hg]Oly WARREN Work Phone: [facility] HospitalJyspuxyjon06-12-5570 11:37-0500Systolic blood wstitlnv802 mm[Hg]Oly WARREN Work Phone: [facility] HospitalSmbmlphvtj19-09-6648 15:02-0500Body temperature 97.3 [degF]Chair [place] Work Phone: [facility]12-27-2024 15:02-0500Diastolic blood mqtelhef85 mm[Hg]Chair [place] Work Phone: [facility]12-27-2024 15:02-0500Heart rate73 /min Chair [place] Work Phone: [facility]12-27-2024 15:02-0500Respiratory rate 20 /minChair [place] Work Phone: [facility]12-27-2024 15:02-7385KgI1% (BldA) [Mass fraction]98 %Chair Gabbi Work Phone: [facility] HospitalComment on above:[id number] 15:02-0500Systolic blood ylmqpgmj330 mm[Hg]Chair Gabbi Work Phone: [facility]12-04-2024 09:31-0500Body temperature 97.59 [degF]Hoda Marshall Work Phone: [facility]12-04-2024 09:31-0500Diastolic blood acvnwxku36 mm[Hg]Ma Sand Work Phone: [facility] HospitalComment on above:Kksapp13-75-4571 09:31-0500Heart rate66 /minMa Sand Work Phone: [facility]12-04-2024 09:31-0500Respiratory rate 16 /minMa Sand Work Phone: [facility]12-04-2024 09:31-5168RkS7% (BldA) [Mass fraction]99 %Ma Sand Work Phone: [facility]12-04-2024 09:31-0500Systolic blood stcaixno380 mm[Hg]Ma Sand Work Phone: [facility] HospitalComment on above:Olrauy75-08-8293 10:12-0500Body sgpvko295.2 cmGordo Barfield MD Work Phone: [facility] HospitalPbmcjieqhb52-28-6410 10:12-0500Body mass index (BMI) [Ratio]44.95 kg/c7OnxqieGordo Barfield MD Work Phone: [place] [address]Aefnmzellh45-30-0325 10:12-0500Body uqihxl731.18 kgGordo Barfield MD Work Phone: [place] [address]Sefszpehqg63-11-8779 10:12-0500Diastolic blood qfqmgzcy25 mm[Hg]Gordo Barfield MD Work Phone: [place] [address]Rdahggfhfd42-26-2726 10:12-0500Systolic blood ldegcmxo012 mm[Hg]Gordo Barfield MD Work Phone: [place] [address]Ocujnawzsu72-31-8320 10:00-0500Body evuksn470.2 cmHayden Arciniega MD Work Phone: 1(667)[facility]11-14-2024 10:00-0500Body mass index (BMI) [Ratio]43.07 kg/q3YpqokugHayden Arciniega MD Work Phone: 1(357)[facility]11-14-2024 10:00-0500Body ugzguydghkl00 [degF]Hayden Arciniega MD Work Phone: 1(331)[facility]11-14-2024 10:00-0500Body cxuixz866.74 kgHayden Arciniega MD Work Phone: 1(958)[facility]11-14-2024 10:00-0500Diastolic blood xajiszhf69 mm[Hg]Hayden Arciniega MD Work Phone: 1(113)[facility]11-14-2024 10:00-0500Heart rate 86 /minHayden Arciniega MD Work Phone: 1(211)[facility]11-14-2024 10:00-9865EqM9% (BldA) [Mass fraction]97 %Hayden Arciniega MD Work Phone: 1(199)[facility]11-14-2024 10:00-0500Systolic blood fpriqenw367 mm[Hg]Hayden Arciniega MD Work Phone: 1(620)[facility]11-10-2024 13:27-0500Body mass index (BMI) [Ratio]45.42 kg/m2Marky Nichols DO Work Phone: [facility] HospitalLozbggtwfu33-09-7833 13:27-0500Body temperature 98.71 [degF]Marky Nichols DO Work Phone: [place] [address]Obddjoadvv21-75-8649 13:27-0500Body .54 kgPaul Rashid LIVE Work Phone: [place] [address]Pxqxrkcmdp35-19-7594 13:27-0500Diastolic blood tunqkyno88 mm[Hg]Marky Nichols DO Work Phone: noC[facility] BransonHtbukuvurd72-54-5616 13:27-0500Heart rate78 /min Marky Nichols DO Work Phone: noC[facility] BransonVxdudprjtm89-02-8379 13:27-3808ZcG1% (BldA) [Mass fraction]99 %Marky Nichols DO Work Phone: noCox BransonQrfnrlbfgm30-56-0161 13:27-0500Systolic blood qalanvij061 mm[Hg]Marky Nichols DO Work Phone: noCox BransonAjftkhaeup52-44-5104 14:35-0400Body mass index (BMI) [Ratio]44.17 kg/m2Oly Sotoey PA Work Phone: [facility] HospitalXfwspgcicm52-02-3828 14:35-0400Body mcotmh249.91 kgOly Temo PA Work Phone: [facility] HospitalJkpamaziki64-52-7452 14:35-0400Diastolic blood rkrcsiom46 mm[Hg]Oly Plascencia PA Work Phone: [facility] HospitalImwvdqypek64-96-1899 14:35-0400Systolic blood jqbqwyzk346 mm[Hg]Oly Sotoey PA Work Phone: [facility] HospitalXpvnxrqqzz16-97-7014 10:11-0400Body cqifxr621.2 cmMa Sand Work Phone: [facility]10-31-2024 10:11-0400Body mass index (BMI) [Ratio]43.06 kg/m2Ma Sand Work Phone: [facility]10-31-2024 10:11-0400Body temperature 97.59 [degF]Ma Sand Work Phone: [facility]10-31-2024 10:11-0400Body cenebf523.74 kgMa Sand Work Phone: [facility]10-31-2024 10:11-0400Diastolic blood fohujhne55 mm[Hg]Ma Sand Work Phone: [facility]10-31-2024 10:11-0400Heart rate71 /min Ma Sand Work Phone: [facility]10-31-2024 10:11-0400Respiratory rate 16 /minMa Sand Work Phone: [facility]10-31-2024 10:11-4826JqO8% (BldA) [Mass fraction]94 %Ma Sand Work Phone: [facility]10-31-2024 10:11-0400Systolic blood fjytwjuh325 mm[Hg]Ma Sand Work Phone: [facility]10-24-2024 11:24-0400Body mass index (BMI) [Ratio]43.67 kg/h7Ckttf Skip DO Work Phone: [facility] HospitalFtsrmuupil24-37-1967 11:24-040Body emlvbw074.46 kgCorey Skip DO Work Phone: 1(671)097-[facility] HospitalPwatgfgyrk96-66-0938 11:24-0400Diastolic blood sijisrmk18 mm[Hg]Luan Skip DO Work Phone: [facility] HospitalNeqmuwomsg30-06-9086 11:24-0400Systolic blood apqnhplk974 mm[Hg]Luan Skip DO Work Phone: [facility] HospitalCsrpxuomhb56-87-3142 09:20-0400Body .18 cmNP-C Gay De La Torre Work Phone: 4(473)384-[address] [place], [place] 0633310-24-2024 09:20-0400 Body mass index (BMI) [Ratio]43 kg/m2NP-C Gayomer Johnmer Work Phone: 6(358)675-[address] [place], [place] 0633[address]-24-2024 09:20-0400 Body .73 kgNP-C Gay Johnmer Work Phone: 9(677)[address]09-30-2024 11:04-0400 Body klecwpvfvjg94.2 [degF]Hoda Sand Work Phone: [facility]09-30-2024 11:04-0400Diastolic blood hbszrqju57 mm[Hg]Ma Sand Work Phone: [facility] HospitalComment on above:uigbwv74-55-9293 11:04-0400Heart rate95 /minMa Sand Work Phone: [facility]09-30-2024 11:04-0400Respiratory rate 16 /minMa Sand Work Phone: [facility]09-30-2024 11:04-2662NoT2% (BldA) [Mass fraction]98 %Ma Sand Work Phone: [facility]09-30-2024 11:04-0400Systolic blood jpxioaaq060 mm[Hg]Ma Sand Work Phone: [facility] HospitalComment on above:lduruk66-28-2111 09:23-0400Diastolic blood mm[Hg]HATCHERY SUPERVISOR-C Gay Johnmer Work Phone: 1(870)264-[address] [place], [place] [address]-25-2024 09:23-0400 Heart rate70 /minNP-C Gay Johnmer Work Phone: 1(085)[address]09-25-2024 09:23-0400 Respiratory rate16 /minNP-C Gay Johnmer Work Phone: 1(084)[address]09-25-2024 09:23-0400 SaO2% (BldA) [Mass fraction]96 %HATCHERY SUPERVISOR-C Gay Britt Work Phone: 1(584)239-[address] [place], [place] [id number] 09:23-0400 Systolic blood jjqgdigt379 mm[Hg]HATCHERY SUPERVISOR-C Gay Johnmer Work Phone: 1(256)[address]09-25-2024 07:27-0400 Body qejlmn276.18 cmNP-C Gayomer Johnmer Work Phone: 1(602)[address]09-25-2024 07:27-0400 Body vvauqn993.46 kgNP-C Gay Britt Work Phone: 1([phone])990-[address] [place], [place] [id number] 11:31-0400 [facility]581.6 [facility] 11:31-0400 Diastolic blood pxafgbcz07 mm[Hg][facility]09-06-2024 11:31-0400Heart rate69 /[facility] 11:31-5962VlG6% (BldA) [Mass fraction]98 %[facility] 01-28-2024 11:31-0400Systolic blood mm[Hg][facility]09-03-2024 11:30-0400Body watllwltvzv95.39 [degF]Ma Sand Work Phone: [facility]09-03-2024 11:30-0400Diastolic blood ijmmixrp57 mm[Hg]Ma Sand Work Phone: [facility]09-03-2024 11:30-0400Heart rate68 /min Ma Sand Work Phone: [facility]09-03-2024 11:30-0400Respiratory rate 16 /minMa Sand Work Phone: [facility]09-03-2024 11:30-7100JoH2% (BldA) [Mass fraction]99 %Ma Sand Work Phone: [facility]09-03-2024 11:30-0400Systolic blood mm[Hg]Ma Sand Work Phone: [facility]08-05-2024 11:16-0400Diastolic blood zweosohn03 mm[Hg]Neda Liz PA-C Work Phone: [facility]08-05-2024 11:16-0400Systolic blood opayhfuv42 mm[Hg]Neda Liz PA-C Work Phone: [facility]08-05-2024 11:02-0400Body ykfwdp588.2 cmMinedy Liz PA-C Work Phone: [facility]08-05-2024 11:02-0400Body mass index (BMI) [Ratio]43.08 kg/p1Mruss Liz PA-C Work Phone: [facility]08-05-2024 11:02-0400Body temperature 97.7 [degF]Neda Liz PA-C Work Phone: [facility]08-05-2024 11:02-0400Body elrise822.8 kgMinedy Hill PA-C Work Phone: [facility]08-05-2024 11:02-0400Heart rate89 /min Neda Hill PA-C Work Phone: [facility]08-05-2024 11:02-0400Respiratory rate 16 /minMinedy Hill PA-C Work Phone: [facility]08-05-2024 11:02-0556JnU6% (BldA) [Mass fraction]98 %Neda Hill PA-C Work Phone: [facility]07-25-2024 14:13-0400Body nglson249.18 cm[facility] 14:13-0400Body mass index (BMI) [Ratio]42.7 kg/q2XcdronenmThe [facility]07-25-2024 14:13-0400Body rwffrdqejad01.6 [degF][facility]07-25-2024 14:13-0400Body pemqbb612.83 kg[facility]07-25[facility]2024 14:13-0400Diastolic blood ajveivjz64 mm[Hg][facility]07-25-2024 14:13-0400 Heart rate75 /[facility]07[facility]25[facility]24 14:13-0400Systolic blood lkqjushq631 mm[Hg][facility]07-08-2024 13:43-0400 Body ztlyzgcgepx14.59 [degF]Ma Sand Work Phone: [facility]07-08-2024 13:43-0400Diastolic blood yqygaapj51 mm[Hg]Ma Sand Work Phone: [facility]07-08-2024 13:43-0400Heart rate73 /min Ma Sand Work Phone: [facility]07-08-2024 13:43-0400Respiratory rate 16 /minMa Sand Work Phone: [facility]07-08-2024 13:43-8548UfR4% (BldA) [Mass fraction]96 %Ma Sand Work Phone: [facility]07-08-2024 13:43-0400Systolic blood oukzmbib65 mm[Hg]Ma Sand Work Phone: [facility]06-13-2024 13:55-0400Body xqvezz453.18 cm[facility]06-13-2024 13:55-0400Body upukxqjoefc51.3 [degF][facility]06-13-2024 13:55-0400Diastolic blood uvcsrvdl12 mm[Hg][facility]06-13-2024 13:55-0400Heart rate62 /min[facility]06-13-2024 13:55-0400Systolic blood esdpdjoe924 mm[Hg][facility]06-05-2024 14:44-0400Body ifkedfpczdf57 [degF]Ma Sand Work Phone: [facility]06-05-2024 14:44-0400Diastolic blood yujdcyst20 mm[Hg]Ma Sand Work Phone: [facility]06-05-2024 14:44-0400Heart rate97 /min Ma Sand Work Phone: [facility]06-05-2024 14:44-0400Respiratory rate 18 /minMa Sand Work Phone: [facility]06-05-2024 14:44-6933UvI4% (BldA) [Mass fraction]97 %Ma Sand Work Phone: [facility]06-05-2024 14:44-0400Systolic blood kxxvzoys368 mm[Hg]Ma Sand Work Phone: [facility]05-29-2024 13:10-0400Body .18 cm[facility]05-29-2024 13:10-0400Body mass index (BMI) [Ratio]43.2 kg/j1PouphknayThe [facility]05-29-2024 13:10-0400Body wmdwqzwmneu45.3 [degF][facility]05-29-2024 13:10-0400Body .19 kg[facility]05-29-2024 13:10-0400Diastolic blood mm[Hg][facility]05-29-2024 13:10-0400 Heart rate74 /min[facility]05-29-2024 13:10-0400Systolic blood mcipcpjz242 mm[Hg][facility]05-09-2024 10:48-0400 Body ctnwgayalnf93 [degF]Ma Sand Work Phone: [facility]05-09-2024 10:48-0400Diastolic blood ivkvuoyd00 mm[Hg]Ma Sand Work Phone: [facility]05-09-2024 10:48-0400Heart rate71 /min Ma Sand Work Phone: [facility]05-09-2024 10:48-0400Respiratory rate 18 /minMa Sand Work Phone: [facility]05-09-2024 10:48-2031NgC4% (BldA) [Mass fraction]97 %Ma Sand Work Phone: [facility]05-09-2024 10:48-0400Systolic blood cuadgemh615 mm[Hg]Ma Sand Work Phone: [facility]05-01-2024 14:41-0400Body jvrave023.93 [facility]04-09-2024 10:34-0400Body bucizhkfjes16.3 [degF]Ma Sand Work Phone: [facility]04-09-2024 10:34-0400Diastolic blood nfamxtor86 mm[Hg]Ma Sand Work Phone: [facility]04-09-2024 10:34-0400Heart rate68 /min Ma Sand Work Phone: [facility]04-09-2024 10:34-0400Respiratory rate 18 /minMa Sand Work Phone: [facility]04-09-2024 10:34-9260PvW9% (BldA) [Mass fraction]99 %Ma Sand Work Phone: [facility]04-09-2024 10:34-0400Systolic blood svsouocl652 mm[Hg]Ma Sand Work Phone: [facility]03-14-2024 11:15-0400Body temperature 97.39 [degF]Ma Sand Work Phone: [place] [address]-14-2024 11:15-0400Diastolic blood xvrwibys00 mm[Hg]Ma Sand Work Phone: 1(976) [phone]14-2024 11:15-0400Heart rate68 /min Ma Sand Work Phone: [place] [address]-14-2024 11:15-0400Respiratory rate 18 /minMa Sand Work Phone: [place] [address]-14-2024 11:15-3039SjY2% (BldA) [Mass fraction]98 %Ma Sand Work Phone: [facility]03-14-2024 11:15-0400Systolic blood wfmoszhp59 mm[Hg]Ma Sand Work Phone: [facility]02-20-2024 11:49-0500Body temperature 97.5 [degF]Ma Sand Work Phone: [facility]02-20-2024 11:49-0500Diastolic blood ixwhhqed39 mm[Hg]Ma Sand Work Phone: [facility]02-20-2024 11:49-0500Heart rate83 /min Ma Sand Work Phone: [facility]02-20-2024 11:49-0500Respiratory rate 18 /minMa Sand Work Phone: [facility]02-20-2024 11:49-5735ZwP0% (BldA) [Mass fraction]96 %Hoda Marshall Work Phone: [facility]02-20-2024 11:49-0500Systolic blood jdghnjol922 mm[Hg]Hoda Marshall Work Phone: [facility]02-20-2024 10:01-0500Diastolic blood dhxvwohu33 mm[Hg]Lois Holm MD Work Phone: [facility]02-20-2024 10:01-0500 Systolic blood sommzlql793 mm[Hg]Lois Holm MD Work Phone: [phone]02-20-2024 09:41-0500 Body tocoqt758.2 cmLois Holm MD Work Phone: [facility]02-20-2024 09:41-0500 Body mass index (BMI) [Ratio]43.85 kg/o4YfrofnLois Holm MD Work Phone: [phone]02-20-2024 09:41-0500 Body kiawbv292.01 kgLois Holm MD Work Phone: [facility]02-20-2024 09:41-0500 Heart rate71 /minLois Holm MD Work Phone: [facility]02-13-2024 14:48-0500 Body mass index (BMI) [Ratio]41.81 kg/w2GauhebpKade Early MD Work Phone: [facility]Ibtmnyorgn15-20-2147 14:48-0500Body esszic841.3 kgKade Early MD Work Phone: [facility] HospitalHqtnrkvnrn26-43-9319 08:45-0500Body jrolue604.2 cmCarosurya Jasmine APRN-DIGITAL MEDIA ANALYST Work Phone: [facility]01-17-2024 08:45-0500 Body mass index (BMI) [Ratio]44.48 kg/w7Jdmmh Mitali THORPE-DIGITAL MEDIA ANALYST Work Phone: [facility]01-17-2024 08:45-0500 Body jgfjoo007.82 kgMichelle Jasmine MICROBIOLOGY TECHNICIAN-DIGITAL MEDIA ANALYST Work Phone: [facility]01-17-2024 08:45-0500 Diastolic blood nasvcsfn81 mm[Hg]Michelle Jasmine MICROBIOLOGY TECHNICIAN-DIGITAL MEDIA ANALYST Work Phone: [facility]01-17-2024 08:45-0500 Heart rate80 /minMichelle Jasmine MICROBIOLOGY TECHNICIAN-DIGITAL MEDIA ANALYST Work Phone: [facility]01-17-2024 08:45-0500 Systolic blood hfjkuysg809 mm[Hg]Michelle Jasmine MICROBIOLOGY TECHNICIAN-DIGITAL MEDIA ANALYST Work Phone: [facility]01-03-2024 17:17-0500 Body jnjteb185.83 kgChristie Phan MD Work Phone: [facility] HospitalCakqvp82-72-7787 14:42-0500Body iemjxl004.19 John Phan MD Work Phone: c[facility] HospitalFwijug19-69-7695 11:16-0400Body temperature 97.7 [degF]Ma Sand Work Phone: [facility]10-27-2023 11:16-0400Diastolic blood sazqwvke65 mm[Hg]Ma Sand Work Phone: [facility]10-27-2023 11:16-0400Heart rate75 /min Ma Sand Work Phone: [facility]10-27-2023 11:16-0400Respiratory rate 16 /minMa Sand Work Phone: [facility]10-27-2023 11:16-7063QlO0% (BldA) [Mass fraction]96 %Ma Sand Work Phone: [facility]10-27-2023 11:16-0400Systolic blood mm[Hg]Ma Sand Work Phone: [facility]09-29-2023 10:56-0400Body .2 cmVana Najera MD Work Phone: [facility]09-29-2023 10:56-0400Body temperature 97.39 [degF]Vera Najera MD Work Phone: [facility]09-29-2023 10:56-0400Body .75 kgVera Najera MD Work Phone: [facility]09-29-2023 10:56-0400Diastolic blood sncwateu12 mm[Hg]Vera Najera MD Work Phone: [facility]09-29-2023 10:56-0400Heart oqvj247 /minVera Najera MD Work Phone: [facility]09-29-2023 10:56-0400Respiratory rate 16 /minVera Najera MD Work Phone: [facility]09-29-2023 10:56-8890PpO0% (BldA) [Mass fraction]96 %Vera Najera MD Work Phone: [facility]09-29-2023 10:56-0400Systolic blood oxnfirlk002 mm[Hg]Vera Najera MD Work Phone: [facility]09-01-2023 12:09-0400Diastolic blood dcicspte18 mm[Hg]Ma Sand Work Phone: [facility]09-01-2023 12:09-0400Systolic blood yzncjkst771 mm[Hg]Ma Sand Work Phone: [facility]09-01-2023 12:08-0400Body temperature 97.59 [degF]Ma Sand Work Phone: [facility]09-01-2023 12:08-0400Heart ubiw913 /minMa Sand Work Phone: [facility]09-01-2023 12:08-0400Respiratory rate 16 /minMa Sand Work Phone: [facility]09-01-2023 12:08-6830ViG4% (BldA) [Mass fraction]97 %Ma Sand Work Phone: [facility]06-29-2023 11:00-0400Body temperature 97.2 [degF]Ma Sand Work Phone: [facility]06-29-2023 11:00-0400Diastolic blood faddwbsq09 mm[Hg]Ma Sand Work Phone: [facility]06-29-2023 11:00-0400Heart rate98 /min Ma Sand Work Phone: [facility]06-29-2023 11:00-0400Respiratory rate 16 /minMa Sand Work Phone: [facility]06-29-2023 11:00-8314TiK7% (BldA) [Mass fraction]98 %Ma Sand Work Phone: [facility]06-29-2023 11:00-0400Systolic blood wfsgbrli096 mm[Hg]Ma Sand Work Phone: [facility]06-01-2023 11:51-0400Body yobihu946.2 cmMa Sand Work Phone: [facility]06-01-2023 11:51-0400Body nlnhge514.66 kgMa Sand Work Phone: [facility]06-01-2023 11:51-0400Respiratory rate 16 /minMa Sand Work Phone: [facility]06-01-2023 10:50-0400Body ncfuva108.2 Semaj Najera MD Work Phone: [facility]06-01-2023 10:50-0400Body temperature 97 [degF]Vera Najera MD Work Phone: [facility]06-01-2023 10:50-0400Body .75 kgVera Najera MD Work Phone: [facility]06-01-2023 10:50-0400Diastolic blood mjeffgju39 mm[Hg]Vera Najera MD Work Phone: [facility]06-01-2023 10:50-0400Heart rate78 /min Vera Najera MD Work Phone: [facility]06-01-2023 10:50-0400Respiratory rate 16 /minVera Najera MD Work Phone: [facility]06-01-2023 10:50-8268MvW7% (BldA) [Mass fraction]98 %Vera Najera MD Work Phone: [facility]06-01-2023 10:50-0400Systolic blood xyvbkrjp078 mm[Hg]Vera Najera MD Work Phone: [facility]05-04-2023 10:22-0400Body ruddqe351.2 cmMa Sand Work Phone: [facility]05-04-2023 10:22-0400Body temperature 97 [degF]Ma Sand Work Phone: [facility]05-04-2023 10:22-0400Body dmnbao564.2 kgMa Sand Work Phone: [facility]05-04-2023 10:22-0400Diastolic blood kqqvjsiv71 mm[Hg]Ma Sand Work Phone: [facility]05-04-2023 10:22-0400Heart rate77 /min Ma Sand Work Phone: [facility]05-04-2023 10:22-0400Respiratory rate 16 /minMa Sand Work Phone: [facility]05-04-2023 10:22-3578XiY0% (BldA) [Mass fraction]97 %Ma Sand Work Phone: [facility]05-04-2023 10:22-0400Systolic blood mm[Hg]Ma Sand Work Phone: [facility]04-17-2023 14:03-0400Body kpydre944.2 kgChristie Phan MD Work Phone: [facility] HospitalOfsvur19-67-6109 09:45-0400Body .2 cmRebekah Rojas MICROBIOLOGY TECHNICIAN.DIGITAL MEDIA ANALYST Work Phone: [facility]04-06-2023 09:45-0400Body temperature 97.7 [degF]Rebekah Rojas MICROBIOLOGY TECHNICIAN.DIGITAL MEDIA ANALYST Work Phone: [facility]04-06-2023 09:45-0400Body zlkdag062.66 kgRebekah Rojas MICROBIOLOGY TECHNICIAN.DIGITAL MEDIA ANALYST Work Phone: [facility]04-06-2023 09:45-0400Diastolic blood lfpuvste80 mm[Hg]Rebekah Rojas MICROBIOLOGY TECHNICIAN.DIGITAL MEDIA ANALYST Work Phone: [facility]04-06-2023 09:45-0400Heart rate63 /min Rebekah Rojas APRN.DIGITAL MEDIA ANALYST Work Phone: [facility]04-06-2023 09:45-0400Respiratory rate 16 /minRebekah Rojas APRN.DIGITAL MEDIA ANALYST Work Phone: [facility]04-06-2023 09:45-6796OgJ0% (BldA) [Mass fraction]96 %Rebekah Rojas MICROBIOLOGY TECHNICIAN.DIGITAL MEDIA ANALYST Work Phone: [facility]04-06-2023 09:45-0400Systolic blood tpaxbmyi444 mm[Hg]Rebekah Rojas MICROBIOLOGY TECHNICIAN.DIGITAL MEDIA ANALYST Work Phone: [facility]12-28-2022 13:28-0500Body .2 Semaj Najera MD Work Phone: [facility]12-28-2022 13:28-0500Body temperature 97.7 [degF]Vera Najera MD Work Phone: [facility]12-28-2022 13:28-0500Diastolic blood zytshqnm41 mm[Hg]Vera Najera MD Work Phone: [facility]12-28-2022 13:28-0500Heart rate93 /min Vera Najera MD Work Phone: [facility]12-28-2022 13:28-0500Respiratory rate 16 /minVera Najera MD Work Phone: [facility]12-28-2022 13:28-0088ReK8% (BldA) [Mass fraction]97 %Vera Najera MD Work Phone: [facility]12-28-2022 13:28-0500Systolic blood creseblq126 mm[Hg]Vera Najera MD Work Phone: [facility]10-26-2022 10:49-0400Body .2 cmVana Najera MD Work Phone: [facility]10-26-2022 10:49-0400Body temperature 97.81 [degF]Vera Najera MD Work Phone: [facility]10-26-2022 10:49-0400Body ikohqm521.4 kgVera Najera MD Work Phone: [facility]10-26-2022 10:49-0400Diastolic blood tipjqyrn84 mm[Hg]Vera Najera MD Work Phone: [facility]10-26-2022 10:49-0400Heart rate86 /min Vera Najera MD Work Phone: [facility]10-26-2022 10:49-0400Respiratory rate 16 /minVera Najera MD Work Phone: [facility]10-26-2022 10:49-7323SwN8% (BldA) [Mass fraction]98 %Vera Najera MD Work Phone: [facility]10-26-2022 10:49-0400Systolic blood bvwnpxei216 mm[Hg]Vera Najera MD Work Phone: [facility]10-17-2022 11:41-0400Body .2 cmChristie Phan MD Work Phone: S[facility] HospitalVkaggi26-00-0758 11:41-0400Body .49 kgChristie Phan MD Work Phone: [phone] Valley Surgical HospitalKncfld07-82-5544 11:41-0400Diastolic blood pwpwcqzy036 mm[Hg]Christie Phan MD Work Phone: [phone] [facility] Surgical HospitalQkxpcn17-75-6999 11:41-0400Systolic blood dyvwsuan399 mm[Hg]Christie Phan MD Work Phone: B[facility] HospitalNeomsp15-58-6017 10:39-0400Body aifcip967.2 cmVana Najera MD Work Phone: [facility]10-12-2022 10:39-0400Body temperature 97.5 [degF]Vera Najera MD Work Phone: [facility]10-12-2022 10:39-0400Body yqfijv096.76 kgVera Najera MD Work Phone: [facility]10-12-2022 10:39-0400Diastolic blood ejfjzjov52 mm[Hg]Vera Najera MD Work Phone: [facility]10-12-2022 10:39-0400Heart rate79 /min Vera Najera MD Work Phone: [facility]10-12-2022 10:39-0400Respiratory rate 16 /minVera Najera MD Work Phone: [facility]10-12-2022 10:39-8722TeI8% (BldA) [Mass fraction]99 %Vera Najera MD Work Phone: [facility]10-12-2022 10:39-0400Systolic blood jnijiqyx757 mm[Hg]Vera Najera MD Work Phone: [facility]07-06-2022 16:00-0400Body .91 cmMichaesurya Blank Other [employer] Other 07-06-2022 16:00-0400Body mass index (BMI) [Ratio] 37.68 kg/e8Vnfdhfp Blank Other [employer] Other 07-06-2022 16:00-0400Body uffthoxjwiq09.4 [degF] [facility]irela Buffy Other [facility] Other 07-06-2022 16:00-0400Body .5 kgMichael Blank Other [employer] Other 07-06-2022 16:00-0400Diastolic blood czcktkwo92 mm[Hg] Mirela Buffy Other [employer] Other 07-06-2022 16:00-0400Systolic blood jpbnibkb384 mm[Hg] Mirela Buffy Other [employer] Other 06-03-2022 08:18-0400Body .86 kgLynne Ni MD Work Phone: [facility]06-03-2022 08:18-0400Diastolic blood nooonlor01 mm[Hg]Lynne Ni MD Work Phone: [facility]06-03-2022 08:18-0400Heart rate72 /min Lynne Ni MD Work Phone: [facility]06-03-2022 08:18-0400Systolic blood xhehozkk942 mm[Hg]Lynne Ni MD Work Phone: [address] [place], [place] [address]05-25-2022 15:45-0400Body vtauex060.91 cmMichael Blank Other [employer] Other 05-25-2022 15:45-0400Body mass index (BMI) [Ratio] 38.31 kg/o4Pibmmec Blank Other [employer] Other 05-25-2022 15:45-0400Body iruplnqoyei71.1 [degF] Mirela Blank Other [employer] Other 05-25-2022 15:45-0400Body lehfcl943.32 kgMichael Blank Other [employer] Other 05-25-2022 15:45-0400Diastolic blood lmbvofvc54 mm[Hg] Mirela Blank Other [employer] Other 05-25-2022 15:45-0400Systolic blood ylmkkxkc052 mm[Hg] Mirela Blank Other [employer] Other 04-21-2022 15:15-0400Body .91 cmMichael Blank Other [employer] Other 04-21-2022 15:15-0400Body mass index (BMI) [Ratio] 37.99 kg/p1Npppfar Blank Other [employer] Other 04-21-2022 15:15-0400Body wpqtgxuccea15.9 [degF] Mirela Blank Other [employer] Other 04-21-2022 15:15-0400Body .41 kgMichael Blank Other [employer] Other 04-21-2022 15:15-0400Diastolic blood ylaezleg22 mm[Hg] Mirela Baer Other [employer] Other 04-21-2022 15:15-0400Systolic blood wpaiqnpm848 mm[Hg] Mirela Baer Other [employer] Other 05-17-2021 12:45-0400Diastolic blood avzyxrnm70 mm[Hg] Stv [employer] Work Phone: 1(250) 575-283305-17-2021 12:45-0400Heart rate68 /minStv [employer] Work Phone: 1(985) 290-295205-17-2021 12:45-7415MlL1% (BldA) [Mass fraction]99 % Stv [facility] Work Phone: 1(110) 576-328405-17-2021 12:45-0400Systolic blood pbqzaeop680 mm[Hg] Stv [facility] Work Phone: 1(961) 112-750405-17-2021 10:45-0400Respiratory rate22 /minStv [facility] Work Phone: 1(354) 861-186105-17-2021 09:01-0400Body emcnxh712.2 cmStv [employer] Work Phone: 1(564) [phone] 09:01-0400Body mass index (BMI) [Ratio] 36.65 kg/m2Stv [employer] Work Phone: 1(367) 118-879805-17-2021 09:01-0400Body frsgxefmzly40.81 [degF]Stv [address] Work Phone: 1(899) [phone] 09:01-0400Body rgurdy845.14 kgStv [employer] Work Phone: Encounters Encounter DateEncounter TypeCare ProviderFacilityStart: 03-23-2025 End: 43-84-2406cknymiqsdaHPYRTP VARGAS VNot AvailableStart: 03-23-2025 End: 26-76-6186Iqwunq follow up visit related to original Sushil Blum MD Work Phone: [facility] AssociatesComment on above:Pilonidal abscess (Primary Dx)Start: 03-22-2025 End: 19-71-3651Rdnzbjirt Result EncounterGordo Barfield MD Work Phone: [facility] External Department UnsolicitedStart: 03-22-2025 End: 44-08-7700Smbkupvru Result EncounterGordo Barfield MD Work Phone: [facility] External Department UnsolicitedStart: 03-21-2025 End: 27-28-3623ghxqlltcchAMDHC ABHYANKARFacility:[facility] Centertart: 03-21-2025 End: 81-98-1434awigkbzsmnOLAII ABHYANKARFacility:[facility] HospitalStart: 03-14-2025 End: 56-20-5485Emknjk outpatient new 60 minutesNandanuta May MD Work Phone: [facility] Infectious DiseaseComment on above:Nipple discharge in female (Primary Dx); Type 2 diabetes mellitus with other specified complication, unspecified whether mcc insulin use; Obesity with serious comorbidity in pediatric patient, unspecified obesity class, unspecified obesity type; IgG deficiency; Recurrent infections; Pilonidal abscess; Tobacco use disorderStart: 18-00-4829znzvlfsxgoTOCYOBArcelia Ferreira [place] HospitalStart: 03-13-2025 End: 76-17-7672jxmpovhwaaMtelff Sue Cramer HATCHERY SUPERVISOR-C Work Phone: [phone]-KkgilzlvaFormerly [facility] MgmtStart: 03-13-2025 End: 53-48-8979Jdtnrle encounter Gamal Kang MD-[facility] Work Phone: Start: 03-09-2025 End: 89-09-7003zkxelzhigqZruaty Sue Cramer HATCHERY SUPERVISOR-C Work Phone: -[facility] HospStart: 03-09-2025 End: 56-53-5400Zeaocfev ReferredGay De La Torre DIGITAL MEDIA ANALYST-[facility] HospStart: 03-03-2025 End: 71-25-9781bwfhwxzjzcQzehww Sue Cramer HATCHERY SUPERVISOR-C Work Phone: [facility] Work Phone: Start: 03-03-2025 End: 64-04-2219Zlxyzdtl ReferredJose Hays DO-[facility] Start: 03-02-2025 End: 48-76-8896Gmaqtvucv to same day surgery centerTerence Blum MD-[facility] HospitalStart: 03-02-2025 End: 39-10-8519gyfohaumwePxiruh Sue Cramer HATCHERY SUPERVISOR-C Work Phone: [facility] Work Phone: Start: 03-02-2025 End: 82-58-8483Dcisxley Result EncounterTerence Blum MD Work Phone: [facility] External Department UnsolicitedStart: 03-02-2025 End: 48-23-2617Zmnkjlyg Result EncounterTerence Pacheco MD Work Phone: [facility] External Department UnsolicitedStart: 02-28-2025 End: 04-90-8458whcznzlbkwJtvtqr Sue Cramer HATCHERY SUPERVISOR-C Work Phone: [facility] Work Phone: Start: 02-28-2025 End: 39-73-3016Ttnzwty encounter procedureBandar Batista APRCritical [facility] Hospital [facility] Work Phone: Start: 02-28-2025 End: 48-43-8899Aoqqhs outpatient new 45 minutesTerence Blum MD Work Phone: [facility] AssociatesComment on above:Pilonidal abscess (Primary Dx); Pilonidal cystStart: 02-28-2025 End: 74-91-0881xzavdjgxahMOZEMO VARGAS VNot AvailableStart: 02-26-2025 End: 03-64-3968wucbspzfooHrobst Sue Cramer HATCHERY SUPERVISOR-C Work Phone: [facility] Work Phone: Start: 02-26-2025 End: 50-65-2622Nvbjrouk ReferredDahortencia Ji MD-[facility] Start: 02-21-2025 End: 95-61-6534jlpsqpkjutFVYJNFP M HOYFacility:[facility] Centertart: 02-14-2025 End: 10-52-8231Yfqids outpatient visit 15 minutesEmily Al English MD Work Phone: [facility] Gabbi DermatologyComment on above:Pilonidal cyst (Primary Dx); Hidradenitis suppurativaStart: 02-14-2025 End: 82-96-7700ejllwpzxvqYVTER Al SIMMONSINot AvailableStart: 02-14-2025 End: 91-57-5952Ujohrh flowsheetEmjennifer English MD Work Phone: [facility] DermatologyStart: 02-14-2025 End: 29-79-1420Euxaku flowsheetBernabe English MD Work Phone: [facility] DermatologyStart: 02-14-2025 End: 07-58-0820doypksodtuHsevlc Sue Cramer HATCHERY SUPERVISOR-C Work Phone: [facility] Work Phone: Start: 02-14-2025 End: 68-38-6299Vdcaucj encounter Joaquin Arnett NP-[facility] Work Phone: Start: 02-08-2025 End: 63-03-9040fwpwqnfyrmHOQOAIAO TSAIFacility:[facility]: 01-31-2025 End: 93-32-1468Zuqsjpxia to same day surgery centerSbobbi Kang MD-[facility] Work Phone: Start: 01-31-2025 End: 06-51-9900hcmczkwlsjJgofic Sue Cramer HATCHERY SUPERVISOR-C Work Phone: [facility] Work Phone: Start: 35-14-7764Vfl-patient / Non-visitSbobbi Kang MD-[facility] Work Phone: Start: 01-26-2025 End: 53-11-1008uzdmbueizgPDL RAMEYNot AvailableStart: 01-24-2025 End: 27-21-5131bhzybsdvuyMmnpk 2 [facility] Work Phone: Hematology/OncologyComment on above:Frequent infections (Primary Dx); Hypogammaglobulinemia (HCC); Bilateral leg weakness; Discoid lupus erythematosus; Elevated sed rate; Megaloblastic anemia due to vitamin B12 deficiencyStart: 01-18-2025 End: 29-91-7947Eyufdpbao encounterLynne Ni MD Work Phone: RheumatologyComment on above:ResultsStart: 01-17-2025 End: 55-69-0459biofzzkeetLukrak Sue Cramer HATCHERY SUPERVISOR-C Work Phone: [facility] Work Phone: Start: 01-17-2025 End: 53-21-9761Kekvydu encounter Joaquin Arnett NP-[facility] Work Phone: Start: 01-11-2025 End: 23-14-6672rlaxsttsklVcdpx 16 [facility] Work Phone: Hematology/OncologyComment on above:Other systemic lupus erythematosus with other organ involvement (HCC) (Primary Dx); Elevated LFTs; Anemia of chronic disease; Elevated sed rate; Elevated C-reactive protein (CRP); Vitamin D deficiency; Vitamin B12 deficiency; Screening-pulmonary TBStart: 12-27-2024 End: 60-88-8082obtnialddxVLHNZ ABHYANKARFacility:[facility] Centertart: 12-14-2024 End: 27-05-1887RixrrGood Samaritan Medical Center Main Work Phone: NeurologyComment on above:CMNStart: 12-14-2024 End: 04-17-0203hxxhzbqezpOpzjt [address] [place] Work Phone: Hematology/OncologyComment on above:Other systemic lupus erythematosus with other organ involvement (HCC) (Primary Dx)Start: 12-12-2024 End: 07-66-4895Yvrzbjr encounter procedureBandar Batista [facility] Gastro Work Phone: Start: 11-30-2024 End: 61-99-3070Lwoacx-up encounterVaibhav Carvalho APRN.CNP Work Phone: Hematology/OncologyComment on above:ResultsStart: 11-30-2024 End: 47-75-2220vsjmmbzhztBukcqd Sue Cramer NP-C Work Phone: [facility] Work Phone: Start: 11-30-2024 End: 58-18-3717Fesqfuy encounter procedureMargie Arnett NP-[facility] Pain Mgmt Work Phone: Start: 11-29-2024 End: 97-67-5489Vxnvpg outpatient visit 25 Crys Carvalho APRN.CNP Work Phone: Hematology/OncologyComment on above: Hypogammaglobulinemia (HCC) (Primary Dx); Vitamin B12 deficiency; Other iron deficiency anemia; Malaise and fatigue; Shortness of breath; Other specified disorders of breast; Pre-diabetes; Gastro-esophageal reflux disease without esophagitisStart: 11-29-2024 End: 86-22-7900svpddumqpvKskar [address] [place] Work Phone: Hematology/OncologyComment on above:Elevated sed rate (Primary Dx); Megaloblastic anemia due to vitamin B12 deficiency; Frequent infections; Hypogammaglobulinemia (HCC); Bilateral leg weakness; Discoid lupus erythematosusStart: 11-23-2024 End: 64-87-3028Ssqjum outpatient visit 25 minutesRyleozzy WARREN Work Phone: [facility] DERMComment on above:Hidradenitis suppurativa (Primary Dx); Pain; Acne vulgarisStart: 11-23-2024 End: 45-51-0666nprdijddolRNCKE NORTHEIMNot AvailableStart: 36-04-6489zdmcbutaer Janes BarfieldFacility:[facility] Centertart: 11-22-2024 Registered Sofia Barfield MDNOR[facility] CredibleStart: 11-21-2024 End: 48-05-8499dkjoclyergHscfde Sue Cramer HATCHERY SUPERVISOR-C Work Phone: [facility] Work Phone: Start: 11-21-2024 End: 88-74-6808Qgpdfxx encounter procedureShertobi Kang MD-[facility] Work Phone: Start: 75-52-7388Pjq-patient / Non-visitSbobbi Kang MD-[facility] Work Phone: Start: 11-20-2024 End: 86-94-7813Xklkenqrb encounterVaibhav Carvalho APRN.CNP Work Phone: Hematology/OncologyComment on above:Lab OrdersStart: 11-16-2024 End: 86-34-0228xibwluxewxUapor [address] [place] Work Phone: Hematology/OncologyComment on above:Other systemic lupus erythematosus with other organ involvement (HCC) (Primary Dx)Start: 11-15-2024 End: 54-55-6133Mihsmvrqz encounterLaura Whalen RP Work Phone: HOSPITAL [facility]ARMAC[facility] HB-3Start: 11-13-2024 End: 77-12-8005Rwnrttv encounter procedureSbobbi Kang MD-[facility] Pain [facility] Work Phone: Start: 10-31-2024 End: 96-30-6386dmbipeydsfEfmjx [address] [place] Work Phone: Hematology/OncologyComment on above:Elevated sed rate (Primary Dx); Megaloblastic anemia due to vitamin B12 deficiency; Frequent infections; Hypogammaglobulinemia (HCC); Bilateral leg weakness; Discoid lupus erythematosusStart: 10-19-2024 End: 78-69-5071jjcrfzicbnNcjzj [address] [place] Work Phone: Hematology/OncologyComment on above:Other systemic lupus erythematosus with other organ involvement (HCC) (Primary Dx)Start: 10-17-2024 End: 91-01-4564nadpghvggeYNJHYWZ M HOYFacility:[facility] Centertart: 10-07-2024 End: 50-28-9372Hibtjpf encounter procedureLynne Ni MD Work Phone: eumatologyComment [...] without gangrene; Bilateral wrist painStart: 10-07-2024 End: 77-65-8343Lufdzcvkkehy consultation with Jyothi Ni MD Work Phone: RheumatologyStart: 10-07-2024 End: 01-18-5348hszvfvqjoaSOJQVXIF TSAIFacility:[facility] Centertart: 10-06-2024 End: 86-36-4598Wyooimlyb encounterLynne Ni MD Work Phone: RheumatologyComment on above:ResultsStart: 2024 End: 22-63-7505hyxhpitdixSrfdt [address] [place] Work Phone: Hematology/OncologyComment on above:Other systemic lupus erythematosus with other organ involvement (HCC) (Primary Dx)Start: 10-02-2024 End: 16-31-6145arodmwyeygIerqk 2 [place] Work Phone: Hematology/OncologyComment on above:Frequent infections (Primary Dx); Hypogammaglobulinemia (HCC); Bilateral leg weakness; Discoid lupus erythematosus; Elevated sed rate; Megaloblastic anemia due to vitamin B12 deficiency; Elevated LFTs; Anemia of chronic disease; Elevated C-reactive protein (CRP); Vitamin D deficiencyStart: 09-20-2024 End: 95-66-1308Rkrdjlssa PharmacyCalhugo Quintanilla [facility] Specialty PharmacyComment on above:SPP Inflammatory Conditions - Medication Refill (Benlysta)Start: 09-19-2024 End: 36-48-7060vhgqwnvqvgNLUCRGY M HOYFacility:[facility] HospitalStart: 09-19-2024 End: 70-70-6662Qnmjoab encounter Ligia Arroyo [facility] Work Phone: GMOP MAIN WALKERComment on above:Fibromyalgia (Primary Dx); Family history of disease of aorta; Family history of cancerGeneralized articular hypermobility (Primary Dx); Chronic pain syndrome; Discoid lupus erythematosus; Family history of pneumothorax in son; Family history of cancer; Family history of mild aortic dilation in daughterStart: 09-19-2024 End: 28-11-2893adwrghhsfsPYZXLBME TSAIFacility:[facility] HospitalStart: 09-18-2024 End: 35-85-0218Vphhvciwu encounterVera Najera MD Work Phone: Cancer Appts MCComment on above:Future Appointment Start: 09-18-2024 End: 17-58-1750sqohvvvioaHihfb [address] [place] Work Phone: Hematology/OncologyComment on above:Other systemic lupus erythematosus with other organ involvement (HCC) (Primary Dx)Refill RequestStart: 09-07-2024 End: 34-61-4629Lhegtq-up encounterVaibhav Carvalho APRN.CNP Work Phone: Hematology/OncologyComment on above:ResultsStart: 09-06-2024 End: 61-18-4076Jfeywgi encounter Gamal Kang MD-[facility] Pain Mgmt Work Phone: Start: 09-06-2024 End: 97-51-7319Vjgdxpzzu encounterFearnaldo Samuel RNHematology/OncologyComment on above:Medication Preauthorization; AppointmentStart: 09-06-2024 End: 39-43-7795xhtifloersWefmi 3 [place] Work Phone: Hematology/OncologyComment on above:Frequent infections (Primary Dx); Hypogammaglobulinemia (HCC); Bilateral leg weakness; Discoid lupus erythematosus; Elevated sed rate; Megaloblastic anemia due to vitamin B12 deficiencyStart: 09-06-2024 End: 68-55-4785Alynmw outpatient visit 25 minutesVaibhav Carvalho APRN.CNP Work Phone: Hematology/OncologyComment on above: Hypogammaglobulinemia (HCC) (Primary Dx); Vitamin B12 deficiency; Other iron deficiency anemia; Megaloblastic anemia due to vitamin B12 deficiencyStart: 09-06-2024 End: 33-51-8235pfzzbvungaTTBKM ABHYANKARFacility:[facility] Centertart: 09-04-2024 End: 99-03-0688Jufckq outpatient visit 25 minutesGordo Barfield MD Work Phone: noms [facility] CENTERKComment on above:Thyroid nodule (CMS/HCC) (Primary Dx); LPRD (laryngopharyngeal reflux disease)Start: 09-04-2024 End: 74-65-7902lcqlvqyqczYINMYR H TIMMISNot AvailableStart: 09-04-2024 End: 47-52-1180Nscuxl flowsheetGordo Barfield MD Work Phone: noms ENT NORWALKStart: 09-04-2024 End: 50-19-4582Qpofor flowsFanta Barfield MD Work Phone: noms ENT NORWALKStart: 09-01-2024 End: 88-86-3416HauvqhTsvpvkhh Tsai MD Work Phone: RheumatologyComment on above:Refill RequestStart: 08-29-2024 End: 18-17-9268vzydjsevxtWCHOYTV M HOYFacility:[facility] Centertart: 08-28-2024 End: 70-34-4441Olxbojpci encounterVaibhav Carvalho APRN.CNP Work Phone: Hematology/OncologyComment on above:Lab OrdersStart: 08-24-2024 End: 17-90-8844Qzpyrlepq Result EncounterGordo Barfield MD Work Phone: noms External Department UnsolicitedStart: 08-24-2024 End: 87-36-5272Qfqkncqzq Result EncounterGordo Barfield MD Work Phone: noms External Department UnsolicitedStart: 08-22-2024 End: 93-65-7266wflzjmeoydYdazov Sue Cramer HATCHERY SUPERVISOR-C Work Phone: [facility] Work Phone: Start: 08-22-2024 End: 29-66-9624Evwdrce encounter procedureGay De La Torre HATCHERY SUPERVISOR-C Work Phone: [facility] Work Phone: Start: 08-17-2024 End: 14-70-3115Bzmhaaapt PharmacyCalhugo Quintanilla [facility] Specialty PharmacyComment on above:SPP Inflammatory Conditions - Medication Refill (Benlysta)Start: 08-08-2024 End: 83-69-4236Bkspufbsg encounterFearnaldo Samuel RNHematology/OncologyComment on above:Patient QuestionStart: 08-08-2024 End: 58-23-8496tgzqgyaokpPgvoh Quinn Seo Work Phone: Hematology/OncologyComment on above:Elevated sed rate (Primary Dx); Megaloblastic anemia due to vitamin B12 deficiency; Frequent infections; Hypogammaglobulinemia (HCC); Bilateral leg weakness; Discoid lupus erythematosusStart: 08-03-2024 End: 27-91-3435YtbvymReca Rozman PA-C Work Phone: OtolaryngologyComment on above:Med Change Request Start: 07-31-2024 End: 82-25-8135vyjunulpqsWyklgp Sue Cramer NP-C Work Phone: [facility] Work Phone: Start: 07-31-2024 End: 00-16-1572Ftdetpy encounter procedureGay LINC Work Phone: [facility] Pain Mgmt Work Phone: Start: 07-26-2024 End: 40-70-4750Jzwrtk outpatient visit 25 minutesLois Holm MD Work Phone: [facility]Comment on above:Sinus tachycardia (Primary Dx); Shortness of breath; Paroxysmal supraventricular tachycardia (CMS-HCC); Essential hypertension; Obstructive sleep apnea syndrome; Morbid obesity (Multi); Current smokerStart: 07-26-2024 End: 83-45-1119sokerpscyhBOOXTH M [facility] AmbulatoryStart: 07-25-2024 End: 26-78-0594Xukeff flowsheetEmjennifer English MD Work Phone: [facility] DERMStart: 07-25-2024 End: 98-00-2687Mhbypu flowsheetEmjennifer English MD Work Phone: [facility] DERMStart: 07-25-2024 End: 45-73-4321Mtqjaz outpatient visit 25 minutesEmjennifer English MD Work Phone: [facility] DERMComment on above:Hidradenitis suppurativa (Primary Dx); Other seborrheic dermatitis; Lupus erythematosus tumidus (CMS/HCC); Rash and other nonspecific skin eruption; Capillary angioma; Neoplasm of uncertain behavior of skinStart: 07-25-2024 End: 74-03-5965Fengqwbpd PharmacyCalhugo Quintanilla [facility] Specialty PharmacyComment on above:SPP Inflammatory Conditions - Medication Refill (Benlysta)Start: 07-20-2024 End: 80-63-2182Wwnoebxmivwp consultation with Mich Victoria DO Work Phone: Infectious DiseaseStart: 07-20-2024 End: 33-71-2271xzlyowzzqjHqzobhm Lehman DO Work Phone: Infectious DiseaseComment on above:Nipple discharge (Primary Dx); Other systemic lupus erythematosus with other organ involvement (HCC); On prednisone therapy; Long-term use of PlaquenilStart: 72-10-8996Hrj-patient / Non-visitGay De La Torre HATCHERY SUPERVISOR-C Work Phone: [facility] Pain Mgmt Work Phone: Start: 07-19-2024 End: 60-60-0792Qardoljfk to same day surgery painterGay De La Torre HATCHERY SUPERVISOR-C Work Phone: [facility]-Dig[facility]ive [facility] Work Phone: Start: 07-19-2024 End: 55-80-4475pwlrrfonfmXppzoq Sue Cramer HATCHERY SUPERVISOR-C Work Phone: [facility] C[facility] Work Phone: Start: 07-12-2024 End: 42-23-7547gquzwcweqlPHJK ROZMANFacility:[facility] Centertart: 07-12-2024 End: 32-39-4296Lcvztpn encounter procedurePatennille Gasca PA-C Work Phone: OtolaryngologyComment on above:LPRD (laryngopharyngeal reflux disease); Dry mouth; Current smoker; Abnormal mouth sensationStart: 07-11-2024 End: 47-36-6137tghkltpjqfNrrkb [address] [place] Work Phone: Hematology/OncologyComment on above:Elevated sed rate (Primary Dx); Megaloblastic anemia due to vitamin B12 deficiency; Frequent infections; Hypogammaglobulinemia (HCC); Bilateral leg weakness; Discoid lupus erythematosusStart: 07-10-2024 End: 49-56-4883oqqseiwtrnYxjyjapcsThe [facility] Work Phone: Start: 07-10-2024 End: 64-98-3337Ozbkmdn encounter procedureEdy Physician [facility] Work Phone: Start: 07-09-2024 End: 21-76-6191Mtqvcijez encounterLynne Ni MD Work Phone: RheumatologyComment on above:ResultsStart: 06-30-2024 End: 45-90-5314xamqtglrcpPTDANPHG TSAIFacility:[facility] Centertart: 06-29-2024 End: 53-62-7449Fstnyyeog PharmacyCalhugo Quintanilla [facility] Specialty PharmacyComment on above:SPP Inflammatory Conditions - Medication Refill (Benlysta)Start: 06-20-2024 End: 02-18-9311cpapsoqrvoQmu ProviderCancer Appts MCComment on above:Iron InfusionsStart: 06-20-2024 End: 12-33-8378X-mail encounter from caregiverCcf ProviderCancer Appts MCStart: 06-20-2024 End: 98-98-3716Xpwnutx encounter procedureLynne Ni MD Work Phone: RheumatologyComment on above:FlairStart: 06-16-2024 End: 55-76-7231Lneedqzfd encounterJaanil Carvalho APRN.DIGITAL MEDIA ANALYST Work Phone: Hematology/OncologyStart: 06-15-2024 End: 67-49-9442Wsynspcfr encounterOly WARREN Work Phone: [facility] BCP OBStart: 06-14-2024 End: 35-81-4267Nfontxnyo Result EncounterOly WARREN Work Phone: noms External Department UnsolicitedStart: 06-14-2024 End: 02-04-4326Syfnjoxqn Result EncounterOly WARREN Work Phone: noms External Department UnsolicitedStart: 06-14-2024 End: 56-36-0433Ztwkeuk evaluation of patient and reportBreath Test Silverio Cp Nsg Wl Work Phone: [facility] Comment on above:Diarrhea, unspecified type (Primary Dx); Abdominal pressureStart: 06-13-2024 End: 05-39-1019Veaoov outpatient visit 25 minutesVaibhav Carvalho APRN.TRUE Work Phone: Hematology/OncologyComment on above:Megaloblastic anemia due to vitamin B12 deficiency (Primary Dx); Hypogammaglobulinemia (HCC); Positive blood cultures; Malaise and fatigue; SOB (shortness of breath)Start: 06-13-2024 End: 25-76-4255fwigxneozrMmjb M Freeman Art TherapistArts & MedicineComment on above:Art TherapyElevated sed rate (Primary Dx); Megaloblastic anemia due to vitamin B12 deficiency; Hypogammaglobulinemia (HCC); Frequent infections; Bilateral leg weakness; Discoid lupus erythematosusStart: 06-12-2024 End: 31-63-7684IzmhxGood Samaritan [facility] Center Main Work Phone: NeurologyComment on above:CMNStart: 06-12-2024 End: 22-37-4339Qrlijkmos encounterVaibhav Carvalho APRN.DIGITAL MEDIA ANALYST Work Phone: Hematology/OncologyComment on above:Lab OrdersStart: 06-06-2024 End: 97-09-9383Zioyvm flowsSalbador WARREN Work Phone: noms BCP OBStart: 06-06-2024 End: 46-98-2545Gygmha flowsheetOly WARREN Work Phone: noms BCP OBStart: 06-06-2024 End: 43-64-2057Vgubbbxgt Result EncounterOly WARREN Work Phone: noms External Department UnsolicitedStart: 06-06-2024 End: 01-17-4573Mwgptxyqb PharmacyCalhugo Quintanilla [facility] Specialty PharmacyComment on above:SPP Inflammatory Conditions - Medication Refill (Benlysta)Start: 06-06-2024 End: 17-68-2974Nxfhcct encounter procedureAmy Temo WARREN Work Phone: [facility] Work Phone: Start: 06-06-2024 End: 53-69-3728Sbeyheus preventive med est patient 40-64yrsAmy Temo WARREN Work Phone: NOJY BCP OBComment on above:Well woman exam with routine gynecological exam; Breast cancer screening by mammogram; Breast noduleStart: 05-19-2024 End: 13-17-2373fwxykruwokOchvf 3 [place] Work Phone: Hematology/OncologyComment on above:Frequent infections (Primary Dx); Megaloblastic anemia due to vitamin B12 deficiency; Elevated sed rate; Hypogammaglobulinemia (HCC); Bilateral leg weakness; Discoid lupus erythematosusStart: 05-16-2024 End: 67-42-5588Ocxkho Glenn Carvalho APRN.CNP Work Phone: Hematology/OncologyStart: 05-15-2024 End: 04-49-2960Mphthd WorkLorgodwin Jaime WHematology/OncologyStart: 05-12-2024 End: 90-80-9006Wmvnoafet PharmacyCalhugo Quintanilal [facility] Specialty PharmacyComment on above:SPP Inflammatory Conditions - Medication Refill (Benlysta)Start: 04-28-2024 End: 94-60-2379Njmtwf OnlyTraci Vahe LPNProMedica Physicians Jobst Vascular Comment on above:Peripheral vascular disease, unspecified (CMS-HCC) (Primary Dx); Cold extremities; Systemic lupus erythematosus (CMS-HCC)Start: 04-26-2024 End: 16-74-6452Ojdujomic Result EncounterMohamed Teresa Arciniega MD Work Phone: [facility] External Department UnsolicitedStart: 04-26-2024 End: 83-43-0706Cgmiobkjz Result EncounterMohamed Teresa Arciniega MD Work Phone: HAPQ External Department UnsolicitedStart: 04-26-2024 End: 57-94-4404dvmjstidjbYVFLD ABHYANKARFacility:[facility] Centertart: 04-26-2024 End: 69-51-8935Rjaaiwh evaluation of patient and reportMa Nurse Sawyer Marshall Work Phone: Hematology/OncologyComment on above:Elevated sed rate (Primary Dx); Megaloblastic anemia due to vitamin B12 deficiencyStart: 04-14-2024 End: 13-86-4593Gsjmkevpp encounterNortSt. Josephs Area Health Services Gastroenter[facility] Work Phone: [facility] Comment on above:Patient Update; AppointmentStart: 04-11-2024 End: 49-38-8186Hpftljpxj PharmacyCalhugo Quintanilla [facility] Specialty PharmacyComment on above:SPP Inflammatory Conditions - Medication Refill (Benlysta)Start: 04-10-2024 End: 31-68-9651Wvtjmd flowsFanta Barfield MD Work Phone: noms ENT NORWALKStart: 04-10-2024 End: 41-51-3613Cdrcjg flowsheetGordo Barfield MD Work Phone: noms ENT NORWALKStart: 04-10-2024 End: 44-20-9438Xhdcddipk encounterVera Najera MD Work Phone: Cancer Appts MCComment on above:AppointmentStart: 04-10-2024 End: 75-75-1825Afmlbi outpatient visit 25 minutesHijorge l Barfield MD Work Phone: noms [facility]NT [facility] PSYCHIATRIC CENTERKComment on above:LPRD (laryngopharyngeal reflux disease) (Primary Dx); Acute otalgia, rightStart: 04-10-2024 End: 05-26-1198hotduouqixLSVCJB H TIMMISNot AvailableStart: 04-07-2024 End: 20-21-5186Haltogfkx Result EncounterCorey Skip DO Work Phone: noms External Department UnsolicitedStart: 04-07-2024 End: 40-30-0906Pwklscqil Result EncounterCorey Skip DO Work Phone: noms External Department UnsolicitedStart: 04-07-2024 End: 23-12-5684Cjbwgq WorkLorgodwin Jaime WHematology/OncologyStart: 04-06-2024 End: 71-23-3175Imbhgdbwn Result EncounterOly WARREN Work Phone: noms External Department UnsolicitedStart: 04-06-2024 End: 84-55-2835Abkkjycsy Result EncounterOly Temo WARREN Work Phone: noms External Department UnsolicitedStart: 04-06-2024 End: 03-00-9845Qpchcb outpatient new 30 minutesMohamanatoliy Arciniega MD Work Phone: [phone] Vascular SurgeryComment on above:Systemic lupus erythematosus (CMS-HCC) (Primary Dx); Cold extremities; Pain of lower extremity, unspecified laterality; Rheumatoid arthritis, involving unspecified site, unspecified whether rheumatoid factor present (CMS-HCC); Current smoker; 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Start: 04-03-2024 End: 14-41-7847VwwdypYqwz J Bruner DO Work Phone: noms SWS FM 230Comment on above:Oral thrush (Primary Dx)Start: 04-02-2024 End: 99-58-2626Nfsicmgqb encounterLynne Ni MD Work Phone: RheumatologyComment on above:ResultsStart: 04-02-2024 End: 74-17-5435Mggjpc outpatient visit 25 minutesMarky Nichols DO Work Phone: noMS SWS UCComment on above:Oral thrush (Primary Dx) Start: 04-02-2024 End: 92-24-6917cpnwzhcupeIGWE J BRUNERNot AvailableStart: 03-31-2024 End: 51-89-3719Bxdeo [facility] Main Work Phone: NeurologyComment on above:CMNStart: 03-30-2024 End: 80-19-0166vbtggnldvnTxbupt Tabbaa MD Work Phone: [facility] Start: 03-27-2024 End: 96-05-9986vcbosycnwjKespmNhan Najera MD Work Phone: Hematology/OncologyComment on above:Megaloblastic anemia due to vitamin B12 deficiency (Primary Dx); High total serum IgM; JOSE RAFAEL (obstructive sleep apnea); Elevated sed rate; Hypogammaglobulinemia (HCC); Frequent infectionsStart: 03-27-2024 End: 81-27-4601Ujvhdlylyevd consultation with Treasure Najera MD Work Phone: Hematology/OncologyStart: 03-27-2024 End: 61-82-8789scpvrotywpNAOIG ABHYANKARFacility:[facility] Centertart: 03-23-2024 End: 42-32-4343Rpgdss outpatient visit 15 minutesOly WARREN Work Phone: noms BCP OBComment on above:Abnormal uterine bleeding (AUB); Menorrhagia with regular cycleStart: 03-23-2024 End: 68-48-2695Tmrqbn flowsSalbador WARRNE Work Phone: noms [facility] OBStart: 03-23-2024 End: 40-04-6780Fvluma Ganesh WARREN Work Phone: noms [facility] OBStart: 03-23-2024 End: 98-35-3995Danxccw evaluation of patient and reportMa Nurse Sawyer Marshall Work Phone: Hematology/OncologyComment on above:Elevated sed rate (Primary Dx); Megaloblastic anemia due to vitamin B12 deficiencyStart: 03-20-2024 End: 19-14-9257Sojlguamo encounterAkiko Cooper MD Work Phone: [facility] Start: 03-18-2024 End: 82-74-4675Xscxamk encounter Florentino Ni MD Work Phone: RheumatologyComment on above:Other [...] B12 deficiency; Discoid lupus erythematosusStart: 03-18-2024 End: 82-16-9255Ltemmhcsabrr consultation with patientLynne Ni MD Work Phone: RheumatologyStart: 03-17-2024 End: 22-40-5823MuyudiOaagzxar Tsai MD Work Phone: RheumatologyComment on above:Refill RequestStart: 03-16-2024 End: 12-95-8058Uvvsro flowsheetCorey Skip DO Work Phone: noms BCP OBStart: 03-16-2024 End: 07-24-9705Zbsmie flowsheetCorey Skip DO Work Phone: noms BCP OBStart: 03-16-2024 End: 37-22-8218Algffz outpatient visit 15 minutesCorey Skip DO Work Phone: noms BCP OBComment on above:Nipple dischargeStart: 03-16-2024 End: 02-47-3518biodjixrjwVR-C Gay De La Torre Work Phone: [facility] Work Phone: Start: 03-16-2024 End: 83-17-1052Pcgsgou encounter procedureNP-C Gay De La Torre Work Phone: [facility] Gastroenterology Work Phone: Start: 03-13-2024 End: 19-13-7947Lspelmlir PharmacyCalhugo Quintanilla [facility] Specialty PharmacyComment on above:SPP Inflammatory Conditions - Medication Refill (Benlysta - [facility] 09/2024)Start: 03-08-2024 End: 17-66-6050aophlckgpzEBOO [facility] Hospitaltart: 03-07-2024 End: 31-53-7688Synel [facility] Main Work Phone: NeurologyComment on above:cmnStart: 03-02-2024 End: 19-68-7432EtzlkpZvtotueqwf M Graziani HATCHERY SUPERVISOR Work Phone: [facility] NEURO 210Comment on above:Lumbosacral radiculopathy at L5; Degenerative disc disease, lumbar; Cervical radiculopathy at C0Aenlf: 02-28-2024 End: 95-40-9994tuojhvjtxzOS-C Gay De La Torre Work Phone: [facility] Work Phone: Start: 02-28-2024 End: 55-64-5633Bltunlp encounter procedureNP-Ananya De La Torre Work Phone: [facility] Work Phone: Start: 02-22-2024 End: 08-78-1062Qubgozgit encounterOly Papa [facility] Work Phone: Genetic HealthcareComment on above:Cell Changer - Other (Eds scheduling)Start: 02-21-2024 End: 43-50-2759Vorzydx evaluation of patient and reportMa Nurse Sawyer Marshall Work Phone: Hematology/OncologyComment on above:Elevated sed rate (Primary Dx); Megaloblastic anemia due to vitamin B12 deficiencyStart: 02-18-2024 End: 77-15-0935Zifaoiypi encounterLynne Ni MD Work Phone: RheumatologyStart: 00-91-2034Zli-patient / Non-visit WALESKA De La Torre Work Phone: [facility] Work Phone: Start: 02-16-2024 End: 71-90-8697Wqrqdfxgk to same day surgery centerNP-C Gay Britt Work Phone: [facility] Work Phone: Start: 02-16-2024 End: 01-22-5456hcnyenllhqPJ-C Gay De La Torre Work Phone: [facility] Work Phone: Start: 02-15-2024 End: 28-09-8983Zzamdmyye encounterLexus Heck APRN.CNP Work Phone: NeurologyComment on above:Orders (PAP RX.)Start: 02-14-2024 End: 98-60-6365Mhzyaq-up encounterCalhugo Quintanilla [facility] Comment on above:SPP Inflammatory Conditions - Follow-up (Benlysta); Insurance Authorization ([place] Renew[place] Submitted)Start: 02-14-2024 End: 38-31-6546qpdtwoesclPazsagvvnEris Heck APRN.CNP Work Phone: NeurologyComment on above:JOSE RAFAEL (obstructive sleep apnea) (Primary Dx); Somnolence, daytimeSPP Inflammatory Conditions - Medication Refill (Benlysta - [facility] 09/2024)Start: 02-14-2024 End: 33-91-3686Qhevukswibmm consultation with Sara Heck APRN.CNP Work Phone: NeurologyStart: 02-09-2024 End: 94-91-3473Qcyvpy flowsheetZita Cuellar HATCHERY SUPERVISOR Work Phone: noms BM NEUROLOGYStart: 02-09-2024 End: 65-51-4112Wodvrr flowsNapoleon Cuellar HATCHERY SUPERVISOR Work Phone: noms BM NEUROLOGYStart: 02-09-2024 End: 46-49-9013Hreq/qhp telephone evaluation - Cesilia Cuellar HATCHERY SUPERVISOR Work Phone: noms [facility] NEURO 210Comment on above:Lumbosacral radiculopathy at L5 (Primary Dx); Degenerative disc disease, lumbar; Cervical radiculopathy at G0Utbhc: 02-07-2024 End: 29-70-7713DoquohRocqhvyepsGil Cuellar NP Work Phone: noms [facility] NEURO 210Comment on above:Autoimmune disease (CMS/HCC); Fibromyalgia; NumbnessStart: 01-28-2024 End: 64-13-7723alwgahwtzhDrglvda Adilene DO Work Phone: [facility] Work Phone: Comment on above:Blood workStart: 01-28-2024 End: 11-23-6836Haojvnk encounter procedureMission Hospital [facility] [place] Work Phone: Start: 01-27-2024 End: 92-02-7538Cvqorbbxpltw consultation with Mich Victoria DO Work Phone: Infectious DiseaseStart: 01-27-2024 End: 15-93-1334ffjxnncigdXheugqy Lehman DO Work Phone: Infectious DiseaseComment on above:Pseudomonas infection (Primary Dx); Other systemic lupus erythematosus with other organ involvement (HCC); On prednisone therapy; Long-term use of PlaquenilStart: 01-25-2024 End: 97-50-1211Emymker evaluation of patient and reportMa Nurse Sawyer Marshall Work Phone: Hematology/OncologyComment on above:Elevated sed rate (Primary Dx); Megaloblastic anemia due to vitamin B12 deficiencyStart: 01-20-2024 End: 77-08-5605XfypvyHsnhxwi W Bauer MD Work Phone: noms [facility] NEURO 210Comment on above:Degenerative disc disease, lumbar (Primary Dx); Lumbosacral radiculopathy at D7Ydnru: 01-18-2024 End: 10-45-7061Ndnsrbyyx PharmacyAidee Quintanilla [facility] Specialty PharmacyComment on above:SPP Inflammatory Conditions - Medication Refill (Benlysta)Start: 01-12-2024 End: 53-65-3903oyaybfpoybSchpmevo Tsai MD Work Phone: RheumatologyStart: 01-12-2024 End: 62-40-9255Ivgmfbi encounter procedureLynne Ni MD Work Phone: RheumatologyComment on above:FlairStart: 12-30-2023 Telephone encounterLynne Ni MD Work Phone: RheumatologyComment on above:ResultsStart: 12-27-2023 Telephone encounterNeda Hill PA-C Work Phone: Hematology/OncologyComment on above:ResultsStart: 12-27-2023 End: 68-21-0984Qdfiksl evaluation of patient and reportMa Nurse Sawyer Marshall Work Phone: Hematology/OncologyComment on above:Elevated sed rate (Primary Dx); Megaloblastic anemia due to vitamin B12 deficiencyStart: 12-27-2023 End: 69-39-8487Lwlyiz outpatient visit 15 minutesMinedy Hill PA-C Work Phone: Hematology/OncologyComment on above:Megaloblastic anemia due to vitamin B12 deficiency (Primary Dx); Elevated sed rate; Obstructive sleep apnea syndromeStart: 12-24-2023 End: 85-14-9559jxaudytueeSPXUIO [facility] AmbulatoryStart: 12-16-2023 End: 45-57-2958aavtcyvvyjIlniupsgoSelect [facility] Work Phone: Start: 12-16-2023 End: 25-94-5744Hsjahqg encounter procedureMission Hospital [facility] Infectious Disease Work Phone: Start: 36-37-0763Ctdjjzkdd PharmacyCalhugo Quintanilla [facility] Specialty PharmacyComment on above:SPP Inflammatory Conditions - Medication Refill (Benlysta - [facility] 09/2024)Start: 11-29-2023 End: 81-37-7275Acaovql evaluation of patient and reportMa Nurse Sawyer Marshall Work Phone: Hematology/OncologyComment on above:Elevated sed rate (Primary Dx); Megaloblastic anemia due to vitamin B12 deficiencyStart: 50-62-9564hwgvsyjwkg Vera Najera MD Work Phone: Hematology/OncologyComment on above:Folic acidStart: 11-18-2023 End: 52-29-5478Uxkilqssd Result EncounterCorey Skip DO Work Phone: noms External Department UnsolicitedStart: 11-18-2023 End: 75-08-4622Wemnsearz Result EncounterCorey Skip DO Work Phone: noms External Department UnsolicitedStart: 11-15-2023 Specialty PharmacyCalhugo Quintanilla [facility] Specialty PharmacyComment on above:SPP Inflammatory Conditions - Medication Refill (Benlysta - [facility] 09/2024)Start: 77-17-0745TrzmxtOcuyhcuy Tsai MD Work Phone: RheumatologyComment on above:Refill RequestStart: 11-04-2023 End: 18-26-7507zrrgjrobjkUjujlevyfThe [facility] of [facility] Work Phone: Start: 11-04-2023 End: 63-91-4577Whkszfh encounter procedureMission Hospital [facility] Infectious Disease Work Phone: Start: 10-27-2023 End: 61-41-8995Ggqqyop evaluation of patient and reportMa Nurse Sawyer Marshall Work Phone: Hematology/OncologyComment on above:Elevated sed rate (Primary Dx); Megaloblastic anemia due to vitamin B12 deficiencyStart: 28-91-0133xrducgmjpykarissa Ni MD Work Phone: RheumatologyStart: 76-31-6033Upyiahr encounter procedureLynne Ni MD Work Phone: RheumatologyComment on above:CdiffStart: 10-20-2023 End: 94-42-8409xclznlgxubSdilcqcopThe [facility] of [facility] Work Phone: Start: 10-20-2023 End: 74-25-7822Ikisrhu encounter procedureMission Hospital [facility] Infectious Disease Work Phone: Start: 98-54-2181Vyrqesrhh PharmacyCalhugo Quintanilla [facility] Specialty PharmacyComment on above:SPP Inflammatory Conditions - Medication Refill (Benlysta)Start: 10-05-2023 End: 49-85-3921Gnlnnig encounter procedureLynne Ni MD Work Phone: RheumatologyComment [...] History of vitamin D deficiencyStart: 10-05-2023 End: 69-23-9961Klinesztazdl consultation with patientLynne Ni MD Work Phone: RheumatologyStart: 09-30-2023 End: 87-58-9704Lpypdhy evaluation of patient and reportMa Nurse Sawyer Marshall Work Phone: Hematology/OncologyComment on above:Elevated sed rate (Primary Dx); Megaloblastic anemia due to vitamin B12 deficiencyStart: 09-29-2023 End: 24-39-8446Obuazoocw Result EncounterZita Cuellar HATCHERY SUPERVISOR Work Phone: noms External Department UnsolicitedStart: 09-29-2023 End: 17-24-5685Sbntxgedi Result EncounterZita Cuellar NP Work Phone: noms External Department UnsolicitedStart: 09-22-2023 End: 97-56-9421Pxnudch encounter procedureFirbon [facility] Gastroenterology Work Phone: Start: 23-76-2059Hhsmencbt PharmacyAidee Quintanilla [facility] Specialty PharmacyComment on above:SPP Inflammatory Conditions - Medication Refill (Benlysta)Start: 09-09-2023 End: 93-75-7539kehtxvmbcbVwqza Abhyankar MD Work Phone: Hematology/OncologyComment on above:Megaloblastic anemia due to vitamin B12 deficiency (Primary Dx); Obstructive sleep apnea syndrome; Chronic fatigue and malaise; High total serum IgM; JOSE RAFAEL (obstructive sleep apnea); Somnolence, daytimeStart: 09-09-2023 End: 93-43-8710Wmoilwihaukg consultation with Treasure Najera MD Work Phone: SANDUSKYStart: 52-32-3733Xplpgytqm encounterLynne Ni MD Work Phone: eumatologyComment on above:ResultsStart: 08-31-2023 End: 01-14-8704Ypuxuew evaluation of patient and reportMa Nurse Sawyer Sand Work Phone: Hematology/OncologyComment on above:Megaloblastic anemia due to vitamin B12 deficiency (Primary Dx); Elevated sed rateStart: 00-05-5345Iscyenyic PharmacySelect Medical Specialty [facility], Inchugo Quintanilla [facility] Specialty PharmacyComment on above:SPP Inflammatory Conditions - Medication Refill (Benlysta )Start: 08-05-2023 End: 34-13-1461Atsndww evaluation of patient and reportMa Nurse Sawyer Sand Work Phone: Hematology/OncologyComment on above:Megaloblastic anemia due to vitamin B12 deficiency (Primary Dx); Elevated sed rateStart: 88-39-5022Pvz-patient / Non-visitFirbon sec[facility] Gastroenterology Work Phone: Start: 23-25-9180wacewpbbrtAfffcg Bradley [facility] MAINStart: 07-13-2023 End: 49-08-4942Dhzaodt evaluation of patient and reportMa Nurse Sawyer Sand Work Phone: Hematology/OncologyComment on above:Megaloblastic anemia due to vitamin B12 deficiency (Primary Dx); Elevated sed rateSPP Inflammatory Conditions - Medication Refill (Benlysta ) Start: 07-13-2023 End: 86-18-7075Owuhbn outpatient new 45 Bonnie Holm MD Work Phone: [facility] HospitalComment on above:Shortness of breath (Primary Dx); Paroxysmal supraventricular tachycardia; PAC (premature atrial contraction); Current smoker; Systemic lupus erythematosus, unspecified SLE type, unspecified organ involvement status (CMS/HCC); Palpitations; Obstructive sleep apnea syndrome; Morbid obesity (CMS/HCC); Bilateral lower extremity edemaStart: 07-06-2023 End: 13-23-0789Twlklb outpatient visit 25 minutesKade Early MD Work Phone: noms [facility] NEURO 210Comment on above:Autoimmune disease (CMS/HCC) (Primary Dx); Autonomic dysfunction; Lumbosacral radiculopathy; Bilateral leg weaknessStart: 75-91-4802Wifyg abstractingKade Early MD Work Phone: noms [facility] NEURO 210Start: 06-09-2023 End: 74-12-1529Afzeft outpatient new 60 minutesFrankselene London Mitali THORPE-DIGITAL MEDIA ANALYST Work Phone: [facility] CenterComment on above:Irregular heart rate (Primary Dx); Essential hypertension; Autonomic dysfunction; Obstructive sleep apnea syndrome; Primary hypertensionStart: 05-26-2023 End: 61-85-7668Isadjx outpatient visit 40 Sirisha Phan MD Work Phone: Integrated MedicineComment on above:Obesity, Class III, BMI >= 40 (Primary Dx); Other chronic painStart: 04-26-2023 End: 38-14-2918Bvavnx outpatient visit 40 Sirisha Phan MD Work Phone: Integrative and Lifestyle MedicineComment on above: Obesity, Class III, BMI >= 40 (Primary Dx); FUO (fever of unknown origin); Other chronic painStart: 22-38-4738thccfoxvfkHmxlxks Ruff MD Work Phone: Integrative and Lifestyle MedicineComment on above: PhentermineStart: 25-07-9990Veaxbpdzv encounterEnma Hamm RN Hematology/OncologyComment on above:ResultsStart: 04-16-2023 End: 67-96-4472Sjygkdn evaluation of patient and reportMa Nurse Sawyer Sand Work Phone: Hematology/OncologyComment on above:Megaloblastic anemia due to vitamin B12 deficiency (Primary Dx); Elevated sed rateStart: 03-19-2023 End: 33-86-6281Gfgawpn evaluation of patient and reportMa Nurse Sawyer Sand Work Phone: Hematology/OncologyComment on above:Megaloblastic anemia due to vitamin B12 deficiency (Primary Dx); Elevated sed rateStart: 69-13-9181Jqupl [facility] Main Work Phone: NeurologyComment on above:CMNStart: 03-11-2023 End: 10-11-0780Paznpqc evaluation of patient and reportNurse [facility] Hospitalbharath [facility] Nickie Work Phone: RheumatologyComment on above:Systemic lupus erythematosus, unspecified SLE type, unspecified organ involvement status (HCC) (Primary Dx)Start: 09-94-1252Tunaddvde encounterLynne Ni MD Work Phone: RheumatologyComment on above:Results (Eye Exam)Start: 02-19-2023 End: 71-09-2360Gklqmzs evaluation of patient and reportMa Nurse Sawyer Sand Work Phone: Hematology/OncologyComment on above:Megaloblastic anemia due to vitamin B12 deficiency (Primary Dx); Elevated sed rateStart: 02-19-2023 End: 88-24-0903Fkxzzi outpatient visit 15 minutesVera Najera MD Work Phone: Hematology/OncologyComment on above:Megaloblastic anemia due to vitamin B12 deficiency (Primary Dx); Elevated sed rate; Chronic fatigue and malaise; High total serum IgM; JOSE RAFAEL (obstructive sleep apnea)Start: 32-77-5581BchkprSkblacgf Tsai MD Work Phone: eumatologyComment on above:Refill RequestStart: 02-04-2023 End: 95-55-8756pdnetdhoxdNizxljey Tsai MD Work Phone: eumatologyComment on above:Other [...] steroids; Steroid-induced osteoporosis; 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Start: 37-20-0163Wsekpvg encounter procedure Clinton Schroeder (Pharmacist)[facility] Specialty PharmacyComment on above:SPP Inflammatory Conditions - Treatment Referral (Benlysta); Insurance Authorization (KELVIN martinez)Start: 93-30-0868Neptavlfb encounterLynne Ni MD Work Phone: [facility] CentermatologyComment on above:Appointment; Orders; Medication AuthorizationStart: 02-04-2023 End: 01-89-9741Qrehdlnqkvtf consultation with Jyothi Ni MD Work Phone: [facility]ENTERtart: 69-06-2212ClpiiyVitwzqr Ruff MD Work Phone: Integrated MedicineComment on above:Refill Request Start: 73-25-0505Jmupscjwy encounterLynne Ni MD Work Phone: [facility] HospitaltologyComment on above:ResultsStart: 01-22-2023 End: 27-08-2770Bqodzns evaluation of patient and reportMa Nurse Sawyer Marshall Work Phone: Hematology/OncologyComment on above:Megaloblastic anemia due to vitamin B12 deficiency (Primary Dx); Elevated sed rateStart: 24-81-4334DbdgxvEduardo Najera MD Work Phone: Hematology/OncologyComment on above:Megaloblastic anemia due to vitamin B12 deficiency (Primary Dx); High total serum IgM; Elevated sed rateStart: 01-01-2023 End: 35-31-6564xiketbpllxPykgm Patadia MD Work Phone: AllergyComment on above:High total serum IgM (Primary Dx); Low serum IgG for age; Current smokerStart: 01-01-2023 End: 42-10-7575Iyfvyhsexxag consultation with Robson Nelson MD Work Phone: [facility] MAINStart: 01-01-2894Zkaqgq Christie Phan MD Work Phone: Integrated MedicineComment on above:Refill Request Start: 05-00-2352Xcrkrxece encounterLidia Argueta RN Work Phone: Hematology/OncologyComment on above:Care Coordination (appointment)Start: 12-17-2022 End: 09-34-4926mrnelkpyxoDlzbyKathy Rojas APRN.CNP Work Phone: Hematology/OncologyComment on above:Megaloblastic anemia due to vitamin B12 deficiency (Primary Dx); Chronic fatigue and malaiseStart: 12-17-2022 End: 75-91-7743Tcsqpfhhhdjt consultation with Sonali Rojas APRN.CNP Work Phone: SANDUSKYStart: 86-07-3134Wimkreqsv encounterPamella Bettencourt RN Work Phone: Hematology/OncologyComment on above:AppointmentStart: 95-92-6776tthovaqfgqMovpnNhan Najera MD Work Phone: Hematology/OncologyComment on above:Test resultsStart: 52-80-6466Bzweutuqo encounterNatalie Hamm RNHematology/OncologyComment on above:ResultsStart: 58-10-1128zllftawjdoFinqfdnk Tsai MD Work Phone: RheumatologyComment on above:updateStart: 11-19-2022 End: 09-62-6619Qbzzoey evaluation of patient and reportMa Nurse Sawyer Marshall Work Phone: Hematology/OncologyComment on above:Megaloblastic anemia due to vitamin B12 deficiency (Primary Dx); Elevated sed rateStart: 10-22-2022 End: 28-44-9755Zuseegy evaluation of patient and reportMa Nurse Sawyer Marshall Work Phone: Hematology/OncologyComment on above:Megaloblastic anemia due to vitamin B12 deficiency (Primary Dx); Elevated sed rateStart: 10-22-2022 End: 70-26-2206Vvyquc outpatient visit 15 minutesVera Najera MD Work Phone: Hematology/OncologyComment on above:Megaloblastic anemia due to vitamin B12 deficiency (Primary Dx); Elevated sed rate; High total serum IgM; Chronic fatigue and malaise; Obstructive sleep apnea syndromeStart: 09-24-2022 End: 67-66-8658gewpiqdxdaGRP RAMEY .Facility:E8Njjio: 09-24-2022 End: 61-75-8939Omzolcq evaluation of patient and reportMa Nurse Sawyer Marshall Work Phone: Hematology/OncologyComment on above:Megaloblastic anemia due to vitamin B12 deficiency (Primary Dx); Elevated sed rateStart: 09-10-2022 End: 71-70-9747mxzuuvszyuQQ DOUGLAS HOY .Facility:A4Cmnvz: 59-20-1428Mzebtbvbj encounterAngelia Washington [facility] Home Delivery - ComplianceComment on above:Compliance AdherenceStart: 09-07-2022 End: 37-19-6953Sxnxey outpatient visit 40 minutesChristie Phan MD Work Phone: Integrative and Lifestyle MedicineComment on above: Obesity, Class III, BMI >= 40 (Primary Dx); Polypharmacy; Pre-diabetesStart: 09-01-2022 End: 85-13-0226kcsaqcsyfmVI MANUEL FERRIS .Facility:J7Clnpc: 27-78-5697Qsyuhxarabella Ni MD Work Phone: RheumatologyComment on above:Refill RequestStart: 08-27-2022 End: 92-18-9614Jtxaxwj evaluation of patient and reportMa Nurse Sawyer Marshall Work Phone: Hematology/OncologyComment on above:Megaloblastic anemia due to vitamin B12 deficiency (Primary Dx); Elevated sed rateStart: 08-27-2022 End: 25-00-4278tlwiproddvVgilgKathy Rojas APRN.CNP Work Phone: Hematology/OncologyComment on above:Megaloblastic anemia due to vitamin B12 deficiency (Primary Dx); Elevated sed rate; High total serum IgM; Chronic fatigue and malaise; JOSE RAFAEL (obstructive sleep apnea)Start: 08-27-2022 End: 24-83-2538Tqyxvpq encounter Kaley Rojas APRN.CNP Work Phone: SANDUSKYStart: 56-54-0519Beicxbuvc encounterLynne Ni MD Work Phone: RheumatologyComment on above:ResultsStart: 08-15-2022 ambulatoryLynne Ni MD Work Phone: RheumatologyComment on above:updateStart: 08-10-2022 RefillChristie Phan MD Work Phone: [facility] Integrative MedComment on above:Refill Request Start: 07-27-2022 End: 85-72-1554jhmuoyhcyoOgtchtccnCeci Heck APRN.CNP Work Phone: NeurologyComment on above:JOSE RAFAEL (obstructive sleep apnea) (Primary Dx)Start: 07-27-2022 End: 85-55-1008Zqzykwxepcje consultation with Sara Heck APRN.CNP Work Phone: [facility]ILLCRESTStart: 13-35-8335lyzwzgiwaaGkcygpny Tsai MD Work Phone: RheumatologyComment on above:Blood workStart: 84-17-6349Ijtidogyf encounterVera Najera MD Work Phone: Hematology/OncologyComment on above:Orders (Lab Orders Before Appointment)Start: 00-66-7842yfnskzsyzmDrrjof Devnani MD Work Phone: [facility] MAINStart: 99-77-9503Nnckzpt encounter procedureLawanda Miranda MD Work Phone: NeurologyComment on above:AppointmentStart: 05-20-2022 End: 96-71-0046Orvgdxi evaluation of patient and reportMa Nurse Sawyer Marshall Work Phone: Hematology/OncologyComment on above:Megaloblastic anemia due to vitamin B12 deficiency (Primary Dx); Elevated sed rateStart: 05-20-2022 End: 91-92-9635juidrltibhVegqs Abhyankar MD Work Phone: Hematology/OncologyComment on above:High total serum IgM (Primary Dx); Elevated sed rate; Somnolence, daytime; JOSE RAFAEL (obstructive sleep apnea)Start: 05-20-2022 End: 16-85-7410Vgblngc encounter procedureVera Najera MD Work Phone: SANDUSKYStart: 74-99-3095ilvbpuckrzXczjaf Devnani MD Work Phone: NeurologyComment on above:CpapStart: 05-05-2022 Telephone encounterCarjan BILLINGSLEYHome Respiratory TherapyComment on above:PAP Therapy Follow UpPAP Rx Faxed (YUNIOR Seo)Start: 92-93-9372Idcnnwmip encounterNy Lance MD Work Phone: Pediatric GenomicsComment on above:Future Appointment (Scheduling questions/concerns)Start: 67-12-2015Sljfutvjp encounterEliza Licea Research CoordinatorGenetic HealthcareComment on above:Appointment; Cell Changer - OtherStart: 03-31-2022 End: 96-04-2233mxpjkzhukhNQ DOUGLAS HOY .Facility:E6Phzyo: 86-41-0707Rhkhda Christie Phan MD Work Phone: [facility] Integrative MedComment on above:Refill Request Start: 55-96-1416vrkzarhgtzUpzbz Patadia MD Work Phone: AllergyComment on above:PneumovaxStart: 05-99-2862I- mail encounter from Dana Nelson MD Work Phone: AMHERSTStart: 86-37-1812Oxumlamkr encounterMisty Nelson MD Work Phone: AllergyComment on above:PneumovaxStart: 03-21-2022 End: 91-24-6285inmyeogonrAM EL ROSSI .Facility:U9Nqxsp: 03-18-2022 End: 39-90-7168qyrgfpkchcXxbmn Abhyankar MD Work Phone: Hematology/OncologyComment on above:Megaloblastic anemia due to vitamin B12 deficiency (Primary Dx); High total serum OgTB7nWefjw: 79-82-8761S-mail encounter from John Phan MD Work Phone: NDH[facility]ST CAMPUSStart: 03-18-2022 End: 98-34-4236Zyymwbz encounter procedureVera Najera MD Work Phone: SANDUSKYStart: 03-12-2022 End: 50-11-4479zgwysgkcwwTW DOUGLAS HOY .Facility:W3Nehgg: 03-10-2022 End: 40-85-7296ulicrjbxduYdyjwvd Lehman DO Work Phone: Infectious DiseaseComment on above:resultsRaised level of immunoglobulins (Primary Dx); Wound healing, delayed; Current smokerStart: 08-44-8281M-mail encounter from Jean Victoria DO Work Phone: [facility] MAINStart: 03-10-2022 End: 21-29-4211Ipzbstcrkvap consultation with Robson Nelson MD Work Phone: AMHERSTStart: 03-09-2022 End: 78-41-8243vvmsqpneyqKKDJRJ CRAMERFacility:T1Lgvtt: 03-09-2022 End: 14-91-7783Xrldsn consultation new/estab patient 80 chitraChristie Delon Phan MD Work Phone: [facility] Integrative MedComment on above:Obesity, Class II, BMI 35-39.9 (Primary Dx); Somnolence, daytime; Chronic fatigue and malaise; Obesity, unspecified classification, unspecified obesity type, unspecified whether serious comorbidity present; Snoring; POTS (postural orthostatic tachycardia syndrome); Elevated glucose; Raised level of immunoglobulinsStart: 41-72-7078Bbmbeaatq encounterMarycaitlin Kelseyjuancarlos LIVE Work Phone: Infectious DiseaseComment on above:Opened In Error Start: 89-75-4342iqrymumledKyajozjg Tsai MD Work Phone: RheumatologyComment on above:resultsStart: 03-05-2022 Telephone encounterLynne Ni MD Work Phone: RheumatologyComment on above:ResultsStart: 03-04-2022 End: 11-96-3769tsrzhkwazqAsabyNhan Najera MD Work Phone: Hematology/OncologyComment on above:High total serum IgM (Primary Dx); Megaloblastic anemia due to vitamin B12 deficiency; Somnolence, daytime; Snoring; Chronic fatigue and malaise; Obesity, unspecified classification, unspecified obesity type, unspecified whether serious comorbidity presentStart: 03-04-2022 End: 53-51-2824Tzsvrce encounter procedureVera Najera MD Work Phone: SANDUSKYStart: 39-67-0268Vfeac abstractReji Najera MD Work Phone: Hematology/OncologyStart: 72-05-2106Xpdkemxqm encounterMilena Gandara MD Work Phone: Infectious DiseaseComment on above:Opened In Error Start: 02-24-2022 End: 67-97-3941rfrdvkbrnyKvnokbz Lehman DO Work Phone: Infectious DiseaseComment on above:Swelling of lymph nodes (Primary Dx); Other systemic lupus erythematosus with other organ involvement (HCC); On prednisone therapy; Hair loss; Bilateral sacroiliitis (HCC); Long-term use of PlaquenilStart: 02-24-2022 End: 76-47-5675Fmycoxbdymvx consultation with Mich Victoria DO Work Phone: [facility] MAINStart: 02-14-2022 End: 98-98-7842wgwyvcgmyrRI MANUEL FERRSI .Facility:Z8Hrrfa: 11-26-2021 End: 59-85-4258uthoohemchPnsooce Blank Other [employer] Other Start: 42-41-5246Jrrelg outpatient visit 25 minutes Mirela Odom Infectious DiseaseStart: 11-17-2021 End: 38-35-7470irenthxvqoURPrashanth Andersoncility:U9Ferwx: 10-24-2021 End: 86-55-8479Yastzux encounter procedureLynne Ni MD Work Phone: RheumatologyComment [...] history of Crohn's disease; FibromyalgiaStart: 10-15-2021 End: 17-54-3632wxnlnefxvlBmaxyuj Blank Other [employer] Other Start: 34-56-5957Ykcbqk outpatient visit 25 minutes Mirela Odom Infectious DiseaseStart: 10-03-2021 End: 18-00-3447ebdubazmsuFF MIRELA BLANKFacility:E9Yhkmw: 09-18-2021 End: 41-98-9586xnhupipsjbDgulryf Blank Other [facility] [employer] Other Start: 22-15-9078Ounjndulj encounterMichael BlankFPG Infectious DiseaseStart: 09-11-2021 End: 94-67-2235taszgcounfWcdrplr Blank Other [facility] [employer] Other Start: 75-84-5295Hxkyiw outpatient new 45 minutes Mirela BaerJOHN Infectious DiseaseStart: 10-07-2020 End: 98-57-8000kvpjduhbmnMYDKOOhio Valley Surgical Hospitaltart: 10-07-2020 End: 56-22-3222Manmumbfzk hospital visit by physicianStv Baseball Winder Rm ASTVZ Cath LabComment on above:ArrivedStart: 09-14-2018 End: 84-87-2993Efccltm encounter procedureROBERT [facility] Procedures DateProcedureProcedure DetailPerforming ClinicianStart: 85-65-6274Qp soft tissue head & neck real time imge docJinny Barfield MD Work Phone: Start: 62-55-4219Gweyl culturePajessea Britt HATCHERY SUPERVISOR-C Work Phone: Start: 21-31-7532Kxkkm culturePamela Britt HATCHERY SUPERVISOR-C Work Phone: Start: 26-37-5405JHTGJPB Berlin Blum MD Work Phone: Start: 68-53-2353MUAJQZWDX Berlin Blum MD Work Phone: Start: 46-25-5925Nwdbrck of pilonidal cystGay De La Torre HATCHERY SUPERVISOR-C Work Phone: [phone]: 03-18-9979Zscoxvx microbial cultureGay De La Torre HATCHERY SUPERVISOR-C Work Phone: Start: 36-63-8444Byjz stain microscopyGay De La Torre HATCHERY SUPERVISOR-C Work Phone: Start: 70-29-9700Hwnfh cultureGay De La Torre HATCHERY SUPERVISOR-C Work Phone: Start: 08-70-7006NQ Nerve Radio Frequency (Bilateral) Gay De La Torre HATCHERY SUPERVISOR-C Work Phone: Start: 43-92-7857Hmwqm count complete automated Lynne Ni MD Work Phone: Start: 07-43-1314Ioujw count complete automated Lynne Ni MD Work Phone: Start: 36-89-3428J-reactive proteinLynne Ni MD Work Phone: Start: 74-22-0216Xyngb of gammaglobulin iga igd igg igm eachJaimee Deven MICROBIOLOGY TECHNICIAN.DIGITAL MEDIA ANALYST Work Phone: Start: 55-91-1212Sg soft tissue head & neck real time imge docmHrima Barfield MD Work Phone: Start: 35-08-9148Aizahmmyw of local anesthetic into sacroiliac jointGay De La Torre HATCHERY SUPERVISOR-C Work Phone: Start: 27-43-4726ID TOMOSYNTHESIS DIAGNOSTIC LTOly WARREN Work Phone: Start: 06-43-7417DO BREAST LT LIMITEDOly WARREN Work Phone: Start: 99-24-8252Hposi count complete auto&auto difrntl wbcJaimee Deven MICROBIOLOGY TECHNICIAN.DIGITAL MEDIA ANALYST Work Phone: Start: 79-58-6188SEJ,APTIMA HPV,AGE GDLNOly WARREN Work Phone: Start: 22-06-6058Hdcjqypywks observation [Identifier] in Cervix by Cyto stainEmjennifer English MD Work Phone: Start: 15-21-8547Brbhv count complete auto&auto difrntl wbcVivek Marquis LEE Work Phone: Start: 67-05-8034SHXETHUEC BLOOD PRESSUREMohamed Teresa Arciniega MD Work Phone: Start: 79-73-3661ES TOMOSYNTHESIS DIAGNOSTIC BICorey Skip DO Work Phone: Start: 15-89-4681EQ BREAST BI LIMITEDCorey Skip DO Work Phone: Start: 56-42-1660AZ PELVIS W/ TRANSVAGINALAmy Temo WARREN Work Phone: Start: 31-02-6457ZabmqmjkhaaNenst Petitti MD Work Phone: Start: 45-23-5911TCB CBC WITH AUTO DIFFOly WARREN Work Phone: Start: 57-95-0531JWX THYROID STIM HORMONEOly WARREN Work Phone: Start: 04-94-1691WYB THYROXINE (T4) FREEOly WARREN Work Phone: Start: 16-90-2216POM APTTAjesenia WARREN Work Phone: Start: 18-79-5848YIM HEMOGLOBIN A1COly WARREN Work Phone: Start: 99-96-6566IMSNVO PROTHROMBIN TIME INR W/O COUM Oly WARREN Work Phone: Start: 88-56-1585GQX PREG QUANT HCGOly WARREN Work Phone: Start: 04-15-2241HfdkyzzbjdmEyzafu Ibrahim MD Work Phone: Start: 03-23-2024 End: 43-10-5519Soztb dip stick/tablet rgnt non-auto w/o micrscpAejsenia WARREN Work Phone: Start: 40-99-3419Hbuidrtzj of local anesthetic into sacroiliac jointNP-C Gay De La Torre Work Phone: Start: 17-96-5296ZH PELVIS W/ TRANSVAGINALCorey Skip DO Work Phone: Start: 83-87-4611EYC DEHYDROEPIANDROSTERONECorey Skip DO Work Phone: Start: 73-93-4079YST DHEA SULFATECorey Skip DO Work Phone: Start: 28-19-8672BJR FOLLICLE STIMULATING HORMONECorey Skip DO Work Phone: Start: 08-97-2255JAA LUTEINIZING HORMONECorey Skip DO Work Phone: Start: 24-77-7289GCG PROLACTINCorey Skip DO Work Phone: Start: 70-76-3863SU LUMBAR SPINE MIN 4VJacqueline M Graziani HATCHERY SUPERVISOR Work Phone: Start: 78-23-4186XG THORACIC SPINE 3VJacqueline M Graziani HATCHERY SUPERVISOR Work Phone: Start: 39-34-7062Zcv routine ecg w/least 12 lds w/i&r Lois Holm MD Work Phone: Start: 97-20-8437Dxv routine ecg w/least 12 lds w/i&r Michelle Jasmine MICROBIOLOGY TECHNICIAN-DIGITAL MEDIA ANALYST Work Phone: Start: 03-02-1419Mckwfgzfwug observation [Identifier] in Cervix by Cyto stainCorey Skip DO Work Phone: Start: 02-01-4241Alwq cerv/vag auto thin layer prep mnl screenCorey Skip DO Work Phone: Start: 10-07-2020 End: 83-43-9696Wrwromz catheterizationJonas Black MD Work Phone: Start: 77-66-2689Lbnoqwgx [Moles/volume] in Serum or PlasmaJonas Black MD Work Phone: Start: 42-56-5323ZJFJJUIZNN W/GFR POINT OF CAREJonas Black MD Work Phone: Start: 10-07-2020 End: 31-78-2534Yccd bld gluc mntr dev cleared fda spec home useJonas Black MD Work Phone: Start: 74-02-7036Xyqwfyxga [Moles/volume] in Serum or PlasmaJonas Black MD Work Phone: Start: 51-98-4183Gcuksn [Moles/volume] in Serum or PlasmaJonas Black MD Work Phone: Start: 70-57-4928Pxxab test visual color cmprsn methsAfabricio Black MD Work Phone: Start: 06-88-7177Sqzpb foot complete minimum 3 views VICTOR MANUEL GUZMAN Plan of Treatment DateCare ActivityDetailAuthorStart: 73-68-6510Xjjpooipg for malignant neoplasm of cervixNOMS HealthcareStart: 17-49-6409Kckysjams for malignant neoplasm of cervixNOMS HealthcareStart: 83-39-1252Hsvphjapx for malignant neoplasm of cervix Pap SmearCincinnati [facility] SystemStart: 07-26-2025 End: 41-14-9311Hnwunuf encounter zvuzyqdea88/05/2026 11:00 AM EST Office Visit [facility] [address] [facility] [address] [place] [address] Lois Holm [facility] [facility] [address] [place] [address] [facility]: 07-25[facility]2025 End: 31-26-8679Cgsfaex encounter procedureNOMS SWS DERMStart: 06-21-2025 End: 96-09-2939Owkdfwu encounter maonfoxil93/29/2026 8:00 AM EST Office Visit [facility] [address] [place] [address] Kade Early MD 0011 [facility] [address] [id number] [facility] NeurologyStart: 04-20-2025 End: 186649-maiygbwdnzwnzd D3 [Mass/volume] in Serum or PlasmaVITAMIN D 25 HYDROXY Lab Routine Vitamin D deficiency Expected: 04/20/2025 (Approximate), Expires: 01/18/2026leveland ClinicComment on above:Expected: 04/20/2025 (Approximate), Expires: 01/18/2026Start: 04-20-2025 End: 01-18-2026 reactive protein [Mass/volume] in Serum or PlasmaC-REACTIVE PROTEIN Lab Routine Elevated C-reactive protein (CRP) Elevated sed rate Expected: 04/20/2025 (Approximate), Expires: 01/18/2026leveland ClinicComment on above:Expected: 04/20/2025 (Approximate), Expires: 01/18/2026Start: 04-20-2025 End: 75-87-6740LOO panel - Blood by Automated countCOMPLETE BLOOD COUNT Lab Routine Anemia of chronic disease Expected: 04/20/2025 (Approximate), Expires: 01/18/2026leveland ClinicComment on above:Expected: 04/20/2025 (Approximate), Expires: 01/18/2026Start: 04-20-2025 End: 44-33-4062Jlteaxrpxuadd metabolic 2000 panel - Serum or PlasmaCOMPREHENSIVE METABOLIC PANEL Lab Routine Elevated LFTs Expected: 04/20/2025 (Approximate), Expires: 01/18/2026leveland [facility] Work Phone: Comment on above:Expected: 04/20/2025 (Approximate), Expires: 01/18/2026Start: 04-20-2025 End: 73-58-7139Yyykfrvfdzz sedimentation rateSEDIMENTATION RATE, WESTERGREN Lab Routine Elevated C-reactive protein (CRP) Elevated sed rate Expected: 04/20/2025 (Approximate), Expires: 01/18/2026leveland ClinicComment on above:Expected: 04/20/2025 (Approximate), Expires: 01/18/2026Start: 04-09-2025 End: 66-90-4239Uopjsdn encounter iybslrjum53/17/2025 9:30 AM EST Office Visit [facility] [address] [place] [phone] Terence Blum MD [address] [address] [facility] AssociatesStart: 04-07-2025 Screening for malignant neoplasm of breastMammogramNOMS HealthcareStart: 54-33-6406Efkem BMI ScreeningAdult BMI ScreeningProLutheran Hospitalca [facility] SystemStart: 12-03-0254Fvqtuugsu for malignant neoplasm of breastMammogramWVUMedicine Harrison Community HospitalStart: 56-46-5135Tuamgdc ScreeningTobacco Screening ProMMercy Hospital of [facility] SystemStart: 04-02-2025 End: 60-28-4053Bpjldiu encounter /10/2025 1:20 PM EST Office Visit [facility] [address] [place] [phone] Oly Plascencia PA [address] [facility] [place] [address] [facility] COLEMANtart: 03-23-2025 End: 12-93-6486Ynlrqgb encounter hrkbxixoh73/31/2025 11:30 AM EDT Office Visit [facility] [address] [place] [phone] Terence Blum MD [address] [address] [facility] AssociatesStart: 03-23-2025 End: 23-91-1129Okeiayl encounter zieivxaap45/31/2025 9:45 AM EDT Office Visit [facility] [address] [place] [phone] Terence Blum MD [address] [phone] [facility] AssociatesStart: 03-19-2025 End: 72-33-4393Wczwbqw encounter procedureNOMS ENT NORWALKStart: 03-17-2025 Diabetes mellitus screeningDiabetes [facility] Start: 03-14-2025 End: 76-39-1048Lxjhfwohc culture and sensitivityWexner Medical Center SystemComment on above:Expected: 03/14/2025, Expires: 03/14/2026Start: 98-56-6934Vequw culture [facility] Centertart: 51-76-2381Bhdlvqtz identified in Urine by CultureUrine [facility] Hospitaltart: 02-15-8427Cdths cultureChillicothe VA Medical Centertart: 85-66-8034Fhqhdxdy identified in Urine by CultureUrine [facility] Hospitaltart: 03-02-2025 End: 74-46-6360IapcvejlvChillicothe VA Medical Centertart: 00-63-6584Dbfozrz Culture Aerobic [facility] Hospitaltart: 29-82-3972Tddwrxfjl CultureAnaerobic [facility] Hospitaltart: 03-02-2025 Anaerobic microbial cultureAnaAultman Hospital Start: 05-27-5595Dkbrldkuzim observation [Identifier] in Unspecified specimen by Gram stainChillicothe VA Medical Centertart: 27-60-6641Fgeub culture [facility] Centertart: 24-59-0129Lxkcesuj identified in Urine by CultureUrine [facility] Hospitaltart: 02-21-2025 End: 65-53-3901tpcxhkifghLuzgxldaep/OncologyComment on above:3 mo F/U-IVIGStart: 02-21-2025 End: 41-00-8382Elbhdjc encounter buhdfnqko57/01/2025 8:45 AM EDT Office Visit [facility] [address] [place] [address] 3 mo F/U-IVIGNortHarper University [facility] Comment on above:3 mo F/U-IVIGStart: 02-14-2025 End: 05-05-7676Rurkyrx encounter azijrrjgm58/24/2025 3:20 PM EDT Office Visit [facility] [address] [place] [phone] Bernabe English MD [address] [place] [address] ArrivedMS Seo DermatologyComment on above:ArrivedStart: 02-08-2025 End: 43-21-1880kcdtrqnszv48/18/2025 2:00 PM EDT Infusion Center Hematology/Oncology [address] [place] [address] [place] [id number] BENLYSTA -Hematology/OncologyComment on above:BENLYSTA -Start: 01-43-4451UafjiymkiChillicothe VA Medical Centertart: 01-24-2025 End: 11-26-4406zsdftxozvrNkvgnfyrjw/OncologyComment on above:IVIG q4 weeks IVIG(5hours) q4 weeksStart: 14-26-6189WDDRQ-19 Vaccine ( season) COVID-19 Vaccine ( season)[facility] HealthcareStart: 70-79-1640ZMHAL-19 VACCINE ( season)COVID-19 VACCINE ( season)[facility] Hospitaltart: 65-89-6130Oadevqowu vaccinationHEBER VALLEY MEDICAL CENTER HealthcareStart: 01-06-2025 End: 400852-zirjrivaiykrvl D3 [Mass/volume] in Serum or PlasmaVITAMIN D 25 HYDROXY Lab Routine Vitamin D deficiency Expected: 01/06/2025 (Approximate), Expires: 10/06/2025[place] ClinicComment on above:Expected: 01/06/2025 (Approximate), Expires: 10/06/2025Start: 01-06-2025 End: 35-24-4782DBQVT TB SCREENBLOOD TB SCREEN Lab Routine Screening-pulmonary TB Expected: 01/06/2025 (Approximate), Expires: 10/06/2025[facility] ClinicComment on above:Expected: 01/06/2025 (Approximate), Expires: 10/06/2025Start: 01-06-2025 End: 10-06-2025 reactive protein [Mass/volume] in Serum or PlasmaC-REACTIVE PROTEIN Lab Routine Elevated sed rate Elevated C-reactive protein (CRP) Expected: 01/06/2025 (Approximate), Expires: 10/06/2025[facility] ClinicComment on above:Expected: 01/06/2025 (Approximate), Expires: 10/06/2025Start: 01-06-2025 End: 84-76-0742CZW panel - Blood by Automated countCOMPLETE BLOOD COUNT Lab Routine Anemia of chronic disease Expected: 01/06/2025 (Approximate), Expires: 10/06/2025[facility] ClinicComment on above:Expected: 01/06/2025 (Approximate), Expires: 10/06/2025Start: 01-06-2025 End: 20-45-1586Obbzwnf hepatitis differentiation between hepatitis B and C virus panel - Serum or PlasmaHEP REMOTE PANEL BL Lab Routine Elevated LFTs Expected: 01/06/2025 (Approximate), Expires: 10/06/2025[facility] ClinicComment on above: Expected: 01/06/2025 (Approximate), Expires: 10/06/2025Start: 01-06-2025 End: 88-18-2166Vhzxqfgfj (Vitamin B12) [Mass/volume] in Serum or PlasmaVITAMIN B12 Lab Routine Vitamin B12 deficiency Expected: 01/06/2025 (Approximate), Expires: 10/06/2025[facility] ClinicComment on above:Expected: 01/06/2025 (Approximate), Expires: 10/06/2025Start: 01-06-2025 End: 08-52-9502Bcfhwqwuufhkm metabolic 2000 panel - Serum or PlasmaCOMPREHENSIVE METABOLIC PANEL Lab Routine Elevated LFTs Expected: 01/06/2025 (Approximate), Expires: 10/06/2025[facility] Work Phone: Comment on above:Expected: 01/06/2025 (Approximate), Expires: 10/06/2025Start: 01-06-2025 End: 09-00-8115Hishkjdgjvo sedimentation rateSEDIMENTATION RATE, WESTERGREN Lab Routine Elevated sed rate Elevated C-reactive protein (CRP) Expected: 01/06/2025 (Approximate), Expires: 10/06/2025[facility] ClinicComment on above:Expected: 01/06/2025 (Approximate), Expires: 10/06/2025Start: 12-27-2024 End: 23-02-0136fargkkcrkl98/06/2025 9:00 AM EDT Infusion Center Hematology/Oncology [address] [place] [address] IVIG q4 weeksHematology/OncologyComment on above:IVIG q4 weeksStart: 12-14-2024 End: 97-14-9803eyqlkcnduz63/24/2025 2:00 PM EDT Infusion Center Hematology/Oncology [address] [place] [address] [place] [id number] BENLYSTA -Hematology/OncologyComment on above:BENLYSTA -Start: 11-29-2024 End: 54-49-3782yqzdupacezUspvvgubmw/OncologyComment on above:3 mo F/U-IVIG(slow infusion per pt request/B12 +/-IV iron labStart: 11-29-2024 End: 13-67-4316Gqwzpjl encounter snuweqdvk33/09/2025 8:45 AM EDT Office Visit [facility] [address] [place], [place] [address] [address] 3 mo F/U-IVIG(slow infusion per pt request/B12 +/-IV iron lab [facility] LaboratoryComment on above:3 mo F/U- IVIG(slow infusion per pt request/B12 +/-IV iron labStart: 11-20-2024 End: 16-64-1681VHN W Auto Differential panel - BloodCOMPLETE BLOOD COUNT AND DIFFERENTIAL Lab Routine Hypogammaglobulinemia (HCC) Expected: 11/20/2024, Expires: 02/19/2025[facility] Work Phone: Comment on above:Expected: 11/20/2024, Expires: 02/19/2025Start: 11-20-2024 End: 34-43-1662Qzyppkokg (Vitamin B12) [Mass/volume] in Serum or PlasmaVITAMIN B12 Lab Routine Hypogammaglobulinemia (HCC) Expected: 11/20/2024, Expires: 02/19/2025[facility] ClinicComment on above:Expected: 11/20/2024, Expires: 02/19/2025Start: 11-20-2024 End: 41-72-8105Tgqqvunmufmxd metabolic 2000 panel - Serum or PlasmaCOMPREHENSIVE METABOLIC PANEL Lab Routine Hypogammaglobulinemia (HCC) Expected: 11/20/2024, Expires: 02/19/2025[facility] ClinicComment on above:Expected: 11/20/2024, Expires: 02/19/2025Start: 11-20-2024 End: 36-16-4056Eyvgnuby [Mass/volume] in Serum or PlasmaFERRITIN Lab Routine Hypogammaglobulinemia (HCC) Expected: 11/20/2024, Expires: 02/19/2025[facility] ClinicComment on above:Expected: 11/20/2024, Expires: 02/19/2025Start: 11-20-2024 End: 20-07-2337Twtyas [Mass/volume] in Serum or PlasmaFOLATE, SERUM Lab Routine Hypogammaglobulinemia (HCC) Expected: 11/20/2024, Expires: 02/19/2025[facility] ClinicComment on above:Expected: 11/20/2024, Expires: 02/19/2025Start: 11-20-2024 End: 93-79-5830UDJYZFCEOUUHBJC,IGG,IGA,IGMIMMUNOGLOBULINS,IGG,IGA,IGM Lab Routine Hypogammaglobulinemia (HCC) Expected: 11/20/2024, Expires: 02/19/2025 [facility] ClinicComment on above:Expected: 11/20/2024, Expires: 02/19/2025Start: 87-61-0094Zgpmqlsct vaccinationInfluenza Vaccine (#1)[facility]OMS HealthcareComment on above:Postponed from 01/23/2024 (Patient Refused)Start: 11-20-2024 End: 64-69-9984Trlm and Iron binding capacity panel - Serum or PlasmaIRON AND TIBC Lab Routine Hypogammaglobulinemia (HCC) Expected: 11/20/2024, Expires: 02/19/2025[facility] ClinicComment on above:Expected: 11/20/2024, Expires: 02/19/2025Start: 11-16-2024 End: 94-75-7534ymtdrssvxh89/26/2025 2:00 PM EDT Infusion Center Hematology/Oncology [address] [place] [id number] BENLYSTA -Hematology/OncologyComment on above:BENLYSTA -Start: 11-01-2024 End: 77-99-7560yktkvntyfr06/11/2025 9:00 AM EDT Infusion Center Hematology/Oncology [address] [place] [address] [place] [id number] IVIG q 4 weeks with B 12 inj and labHematology/OncologyComment on above:IVIG q 4 weeks with B 12 inj and labStart: 10-31-2024 End: 37-30-6747njjliixbng94/10/2025 9:00 AM EDT Infusion Center Hematology/Oncology [address] [place] [address] [place] [id number] IVIG q 4 weeks with B 12 inj and labHematology/OncologyComment on above:IVIG q 4 weeks with B 12 inj and labStart: 10-19-2024 End: 56-68-4372cwqxadggqy99/29/2025 2:00 PM EDT Infusion Center Hematology/Oncology [address] [place] [address] [place] [id number] BENLYSTA - IVIG AND BENLYSTA AT LEAST 1 DAY APART FOR FUTURE APPTSHematology/Oncology Comment on above:BENLYSTA - IVIG AND BENLYSTA AT LEAST 1 DAY APART FOR FUTURE APPTSStart: 10-18-2024 End: 01-23-5816Suaewvdym Zbykpkxu35/28/2025 10:00 AM EDT Specialty Pharmacy [facility] [address] [place] [address] [id number], [place] [address] Pharmacist, [facility]ty[facility] [address] [place] [address] [address] [place], [place] [address] REFILL- Benlysta- PAx 02/11/25- - mult call attemptsCCF Specialty PharmacyComment on above:REFILL- Benlysta- PAx 02/11/25- - mult call attemptsStart: 10-07-2024 End: 55-82-1075Dltmat-up nvipyusvf83/17/2025 8:00 AM EDT [facility] Rheumatology [address] [facility] [address] Lynne Ni MD [address] [place] [address] follow up visitRheumatologyComment on above:follow up visit Start: 10-06-2024 End: 252289-dshkjvcwohjcjj D3 [Mass/volume] in Serum or PlasmaVITAMIN D 25 HYDROXY Lab Routine Vitamin D deficiency Expected: 10/06/2024 (Approximate), Expires: 07/09/2025[place] ClinicComment on above:Expected: 10/06/2024 (Approximate), Expires: 07/09/2025Start: 10-06-2024 End: 07-09-2025 reactive protein [Mass/volume] in Serum or PlasmaC-REACTIVE PROTEIN Lab Routine Elevated sed rate Elevated C-reactive protein (CRP) Expected: 10/06/2024 (Approximate), Expires: 07/09/2025[place] ClinicComment on above:Expected: 10/06/2024 (Approximate), Expires: 07/09/2025Start: 10-06-2024 End: 58-08-3051QXY panel - Blood by Automated countCOMPLETE BLOOD COUNT Lab Routine Anemia of chronic disease Expected: 10/06/2024 (Approximate), Expires: 07/09/2025[facility] ClinicComment on above:Expected: 10/06/2024 (Approximate), Expires: 07/09/2025Start: 10-06-2024 End: 69-12-1204Jbieegzruskbt metabolic 2000 panel - Serum or PlasmaCOMPREHENSIVE METABOLIC PANEL Lab Routine Elevated LFTs Expected: 10/06/2024 (Approximate), Expires: 07/09/2025[facility]and [facility] Work Phone: Comment on above:Expected: 10/06/2024 (Approximate), Expires: 07/09/2025Start: 10-06-2024 End: 17-95-6106Bxtbwrzrkbo sedimentation rateSEDIMENTATION RATE, WESTERGREN Lab Routine Elevated sed rate Elevated C-reactive protein (CRP) Expected: 10/06/2024 (Approximate), Expires: 07/09/2025[place] ClinicComment on above:Expected: 10/06/2024 (Approximate), Expires: 07/09/2025Start: 2024 End: 76-87-6072koknkrsjodHyhmkesvra/OncologyComment on above:IVIG q 4 weeks with B 12 inj and labBENLYSTA - IVIG AND BENLYSTA AT LEAST 1 DAY APART FOR FUTURE APPTSREFILL- Benlysta- PAx 02/11/25- - LVM 09/20, 09/25, 7Start: 10-02-2024 End: 77-58-8332kpmcnjnrtm14/12/2025 9:00 AM EDT Infusion Center Hematology/Oncology [address] [place] [address] [place] [address] IVIG q 4 weeks with B 12 inj and labHematology/OncologyComment on above:IVIG q 4 weeks with B 12 inj and labStart: 09-28-2024 End: 70-08-9649Iatildxzw Icanatjl77/08/2025 10:00 AM EDT Specialty Pharmacy [facility] [address] [place], [place] [id number] Pharmacist, [facility] [address] [place] [address] [place] [address] REFILL- Benlysta- PAx 02/11/25- - LVM 09/20, 55CCF Specialty PharmacyComment on above:REFILL- Benlysta- PAx 02/11/25- - LVM 09/20, 5Start: 09-25-2024 End: 63-30-4006Aczhvucgh Ztpfbjac93/05/2025 10:15 AM EDT Specialty Pharmacy [facility] [address] [place] [address] Pharmacist, [facility] [address] [place] [address] [address] [place], [place] [address] REFILL- Benlysta- PAx 02/11/25- - LVM 09/20CCF Specialty PharmacyComment on above:REFILL- Benlysta- PAx 02/11/25- - LVM tart: 09-20-2024 End: 05-55-6289Plbvnhgzx Tlirzdhw23/30/2025 10:15 AM EDT Specialty Pharmacy [facility] [address] [place] [address]-b[place] [address] Pharmacist, [facility] [address] [place] [address] [address] [place], [place] [address] REFILL- Benlysta- PAx 02/11/25- - pend new RxCCF Specialty PharmacyComment on above:REFILL- Benlysta- PAx 02/11/25 - pend new RxStart: 09-19-2024 End: 72-06-7162Nwbqnjc encounter procedureGMIT MAIN WALKERComment on above:hEDS with concerns and wants CTD evaluationStart: 09-18-2024 End: 49-33-1589Kjaovjgkv PharmacyCCF Specialty PharmacyComment on above:REFILL- Benlysta- PAx 02/11/25- BENLYSTAStart: 09-06-2024 End: 00-97-5769quhdibuqnr08/16/2025 9:30 AM EDT Infusion Center Hematology/Oncology [address] [place] [address] [place] [address] 3 mo F/U-IVIG(slow infusion per pt request/B12 +/-IV ironHematology/OncologyComment on above:3 mo F/U-IVIG(slow infusion per pt request/B12 +/-IV ironStart: 09-06-2024 End: 54-12-8977Zbfnud-up encounterHematology/OncologyComment on above:3 month follow up IVIG for hypogammaglobulinemia + z90Nkdsq: 09-06-2024 End: 11-94-6722Cdcnmbr encounter kuwuvxxet91/16/2025 8:45 AM EDT Office Visit [facility] [address] [place] [address] [place] [address] 3 month follow up IVIG for hypogammaglobulinemia + w23Gldka [facility] LaboratoryComment on above:3 month follow up IVIG for hypogammaglobulinemia + o82Phryq: 09-05-2024 End: 51-35-8984Fyimmd-up encounterHematology/OncologyComment on above:3 month follow up IVIG for hypogammaglobulinemia + r13Behki: 09-05-2024 End: 08-06-3362Jwoqpjt encounter olpwhbjhc68/15/2025 8:45 AM EDT Office Visit [facility] [address] [place] [address] 3 month follow up IVIG for hypogammaglobulinemia + x19Lkdax [facility] LaboratoryComment on above:3 month follow up IVIG for hypogammaglobulinemia + r05Ifmta: 09-04-2024 End: 50-36-7530Lwinoab encounter chqjjjusc10/14/2025 3:20 PM EDT [facility] [address] [facility] [address] [place] [address] Gordo Barfield MD [address] [facility] [address] [place] [address] ArrivedNOMS SELVIN HARTomment on above:ArrivedStart: 08-28-2024 End: 37-44-3707GQT W Auto Differential panel - BloodCOMPLETE BLOOD COUNT AND DIFFERENTIAL Lab Routine Vitamin B12 deficiency Other iron deficiency anemia Hypogammaglobulinemia (HCC) Expected: 08/28/2024, Expires: 11/27/2024[facility] Work Phone: Comment on above:Expected: 08/28/2024, Expires: 11/27/2024Start: 08-28-2024 End: 31-14-3772Jnzklrbzm (Vitamin B12) [Mass/volume] in Serum or PlasmaVITAMIN B12 Lab Routine Vitamin B12 deficiency Other iron deficiency anemia Hypogammaglobulinemia (HCC) Expected: 08/28/2024, Expires: 11/27/2024[facility]:Expected: 08/28/2024, Expires: 11/27/2024Start: 08-28-2024 End: 35-47-4581Opbiijyspluki metabolic 2000 panel - Serum or PlasmaCOMPREHENSIVE METABOLIC PANEL Lab Routine Vitamin B12 deficiency Other iron deficiency anemia Hypogammaglobulinemia (HCC) Expected: 08/28/2024, Expires: 11/27/2024[facility]:Expected: 08/28/2024, Expires: 11/27/2024Start: 08-28-2024 End: 32-35-6349Zyswtdfb [Mass/volume] in Serum or PlasmaFERRITIN Lab Routine Vitamin B12 deficiency Other iron deficiency anemia Hypogammaglobulinemia (HCC) Expected: 08/28/2024, Expires: 11/27/2024[facility] ClinicComment [facility] above: Expected: 08/28/2024, Expires: 11/27/2024Start: 08-28-2024 End: 85-12-6412Vifbtq [Mass/volume] in Serum or PlasmaFOLATE, SERUM Lab Routine Vitamin B12 deficiency Other iron deficiency anemia Hypogammaglobulinemia(HCC) Expected: 08/28/2024, Expires: 11/27/2024[facility] ClinicComment on above: Expected: 08/28/2024, Expires: 11/27/2024Start: 08-28-2024 End: 08-26-0508XcJ [Mass/volume] in Serum or PlasmaIMMUNOGLOBULIN G Lab Routine Vitamin B12 deficiency Other iron deficiency anemia Hypogammaglobulinemia (HCC) Expected: 08/28/2024, Expires: 11/27/2024[facility] ClinicComment on above: Expected: 08/28/2024, Expires: 11/27/2024Start: 08-28-2024 End: 55-51-4909Srtd and Iron binding capacity panel - Serum or PlasmaIRON AND TIBC Lab Routine Vitamin B12 deficiency Other iron deficiency anemia Hypogammaglobulinemia(HCC) Expected: 08/28/2024, Expires: 11/27/2024[facility] ClinicComment on above:Expected: 08/28/2024, Expires: 11/27/2024Start: 08-22-2024 End: 52-54-0294Bufsnqv encounter jmdolkrxg20/01/2025 1:30 PM EDT Office Visit [facility] [address] [place] [phone] Raj Kitchen MD [address] [place] [address] [facility]CRINOLOGYStart: 08-22-2024 End: 15-58-2813Nrnidebrl Unteqigf63/01/2025 10:15 AM EDT Specialty Pharmacy [facility] [address] [place] [address] Pharmacist, Specialtygroup [address] [place] [address] [address] [place] [address] 22 REFILL- Benlysta- PAx 02/11/25- lvm 08/17CC Specialty PharmacyComment on above:REFILL- Benlysta- PAx 02/11/25 lvm 08/17Start: 08-17-2024 End: 19-16-2986Zcutfaogp Jwrsiple02/27/2025 10:00 AM EDT Specialty Pharmacy [facility] [address] [place] [address] Pharmacist, Specialtygroup [address] [place] [address] [address] [place], [place] [address] REFILL- Benlysta- PAx 02/11/25- [facility] Specialty PharmacyComment on above:REFILL- Benlysta- PAx 02/11/25Start: 08-15-2024 End: 79-94-0267Iawbglp encounter cnxajxxol93/25/2025 10:20 AM EDT Office Visit [facility] [address] [facility] [address] [place] [phone] Gordo Barfield MD [address] [facility] [address] [place] [address] [facility] CI ENTStart: 08-08-2024 End: 91-75-6231eogdhmkuyp98/18/2025 9:30 AM EDT Infusion Center Hematology/Oncology [address] [place] [address] [place] [address] IVIG for hypogammaglobulinemia + c93Jhthxprtuq/OncologyComment on above:IVIG for hypogammaglobulinemia + p32Rcjas: 08-01-2024 End: 56-82-2739Clzgcdc encounter isvewfqey19/11/2025 10:30 AM EDT Office Visit [facility] [address] [place] [phone] Bernabe English MD [address] [place] [address] [facility] SWS DERMStart: 07-25-2024 End: 62-71-3738Ozhzhdivt PharmacyCCF Specialty PharmacyComment on above:REFILL- Benlysta- PAx 02/11/25- daysArrivedStart: 07-20-2024 End: 27-75-2878bkhxizznkj91/27/2025 11:30 AM EST [facility] Infectious Disease [address] [place] [phone] Alhaji Victoria DO [address] [place], [place] [id number] Positive blood cultures [R78.81]Infectious DiseaseComment on above:Positive blood cultures [R78.81]Start: 07-20-2024 End: 78-73-1187Zlwoeat encounter pxvhbpmvy13/27/2025 11:30 AM EST Office Visit Infectious Disease [address] [place] [address] Alhaji Victoria DO [address] [place], [place] [phone] Positive blood cultures [R78.81]Infectious DiseaseComment on above: Positive blood cultures [R78.81]Start: 67-88-6822RhgzluqttChillicothe VA Medical Centertart: 07-13-2024 End: 50-52-9609Epvixsm encounter jwjteecxu85/20/2025 9:20 AM EST Office Visit [address] [place] [phone] Lois Holm MD [address] [facility] [place] [address] [facility]: 07-12-2024 End: 08-11-9263Cxrksek encounter tjverfxnx76/19/2025 2:40 PM EST Office Visit Otolaryngology [address] [place] [address] Marky Gsaca PA-C [address] [place], [place] [phone] RecurrentThrush.OtolaryngologyComment on above:Recurrent Thrush.Start: 07-11-2024 End: 85-59-1222tzxirpkywc71/18/2025 9:30 AM EST Infusion Center Hematology/Oncology [address] [place] [address] [place] [address] IVIG for hypogammaglobulinemia + l74Xyyioyrwnr/OncologyComment on above:IVIG for hypogammaglobulinemia + x45Qotwr: 07-03-2024 End: 133132-jhqsldfaiszuhy D3 [Mass/volume] in Serum or PlasmaVITAMIN D 25 HYDROXY Lab Routine Vitamin D deficiency Expected: 07/03/2024 (Approximate), Expires: 04/02/2025[facility] ClinicComment on above:Expected: 07/03/2024 (Approximate), Expires: 04/02/2025Start: 07-03-2024 End: 04-02-2025 reactive protein [Mass/volume] in Serum or PlasmaC-REACTIVE PROTEIN Lab Routine Elevated sed rate Elevated C-reactive protein (CRP) Expected: 07/03/2024 (Approximate), Expires: 04/02/2025[facility] ClinicComment on above:Expected: 07/03/2024 (Approximate), Expires: 04/02/2025Start: 07-03-2024 End: 25-93-6167PSF panel - Blood by Automated countCOMPLETE BLOOD COUNT Lab Routine Anemia of chronic disease Expected: 07/03/2024 (Approximate), Expires: 04/02/2025[facility] ClinicComment on above:Expected: 07/03/2024 (Approximate), Expires: 04/02/2025Start: 07-03-2024 End: 25-88-5585Nxpwywxnvrtsl metabolic 2000 panel - Serum or PlasmaCOMPREHENSIVE METABOLIC PANEL Lab Routine Elevated LFTs Expected: 07/03/2024 (Approximate), Expires: 04/02/2025[facility] Work Phone: Comment on above:Expected: 07/03/2024 (Approximate), Expires: 04/02/2025Start: 07-03-2024 End: 01-44-6982Epefxyqsnhm sedimentation rateSEDIMENTATION RATE, WESTERGREN Lab Routine Elevated sed rate Elevated C-reactive protein (CRP) Expected: 07/03/2024 (Approximate), Expires: 04/02/2025[facility] ClinicComment on above:Expected: 07/03/2024 (Approximate), Expires: 04/02/2025Start: 06-29-2024 End: 09-84-1505Ofhnqhfzh Bqmkaidg60/06/2025 10:00 AM EST Specialty Pharmacy [facility] [address] [place], [place] [address], [place] [address] Pharmacist, Specialtygroup [address] [place] [address] [address] [place], [place] [address] REFILL- Benlysta- PAx 02/11/25- CC Specialty PharmacyComment on above:REFILL- Benlysta- PAx 02/11/25- daysStart: 06-26-2024 End: 70-28-0757Altpzph evaluation of patient and zoohym3406/26/2024 9:45 AM EST Nurse Visit Hematology/Oncology [address] [place] [address] Hoda Marshall Nurse Sawyer [address] [place] [address] G47Shjzutgwhg/OncologyComment on above:U80Ylfxs: 06-26-2024 End: 15-02-0953nvlwgucvitXofxbknvxn/OncologyComment on above:RTC 3 monthIVIG for hypogammaglobulinemiaStart: 06-26-2024 End: 33-45-3392Udbdopd encounter /03/2025 8:45 AM EST Office Visit [facility] [address] [facility] [place] [address] labsNoMary Babb [facility] Center LaboratoryComment on above:labsStart: 06-14-2024 End: 11-83-9965Smuptjt evaluation of patient and reportWest Baraboo Gastroenterology and Endoscopy CenterComment on above:Abdominal Pain/Diarrhea/Bandar S DIGITAL MEDIA ANALYST ordered/Patient has prep thru MyChart//ccSIBO - Abdominal Pain/Diarrhea/Bandar S DIGITAL MEDIA ANALYST ordered/Patient has prep thru MyChart//cc Order in Scanned DocumentsStart: 06-13-2024 End: 81-05-8464Xjwlxqoqq (Vitamin B12) [Mass/volume] in Serum or PlasmaCleveland ClinicComment on above:Expected: 06/13/2024, Expires: 09/12/2024Start: 06-13-2024 End: 00-89-7425Ccpsrhxk [Mass/volume] in Serum or PlasmaCleveland [facility] Work Phone: Comment on above:Expected: 06/13/2024, Expires: 09/12/2024Start: 06-13-2024 End: 84-10-9024Uxwoyg [Mass/volume] in Serum or PlasmaCleveland Tyler HospitalComment on above:Expected: 06/13/2024, Expires: 09/12/2024Start: 06-13-2024 End: 54-68-4731Bnzj and Iron binding capacity panel - Serum or PlasmaCleveland ClinicComment on above:Expected: 06/13/2024, Expires: 09/12/2024Start: 06-13-2024 End: 08-70-5537Cwhwtte evaluation of patient and gdgejt5406/13/2024 9:45 AM EST Nurse Visit Hematology/Oncology [address] [facility] [address] Hoda Marshall Nurse Sawyer [address] [place] [address] Y14Tvtlgufndd/OncologyComment on above:P95Wnics: 06-13-2024 End: 81-79-8289ybpgwbfvtdNdrwbtuxxt/OncologyComment on above:RTC 3 monthIVIG for hypogammaglobulinemiaStart: 06-13-2024 End: 27-90-5864Bubwgjm encounter ampzwkyeg01/21/2025 8:45 AM EST Office Visit [facility] Laboratory [address] [place] [address] labsNortHarper University Hospital LaboratoryComment on above:labsStart: 06-06-2024 End: 22-53-9044OF Breast - bilateral ScreeningBilateral screening mammogram Imaging Routine Breast cancer screening by mammogram Expected: 06/06/2024 (Approximate), Expires: 08/04/2025[facility] Work Phone: comment on above:Expected: 06/06/2024 (Approximate), Expires: 08/04/2025Start: 06-06-2024 End: 43-87-1266JV Breast - left DiagnosticLeft diagnostic mammogram Imaging Routine Breast nodule Expected: 06/06/2024 (Approximate), Expires: 08/04/2025 [facility] HealthcareComment on above:Expected: 06/06/2024 (Approximate), Expires: 08/04/2025Start: 06-06-2024 End: 43-31-8655Toeszht encounter procedureNOMS BCP OBComment on above:REFILL- Benlysta- PAx 02/11/25Start: 05-29-2024 End: 92-97-8179Yqnhbxr evaluation of patient and lwkktp7605/29/2024 9:30 AM EST Nurse Visit Hematology/Oncology [address] [place] [address] [phone] Hoda Marshall Nurse Sawyer [address] [place] [address] W95Bobwftlctt/OncologyComment on above:A26Wxopb: 05-19-2024 End: 84-24-0773oshryksiir05/27/2024 9:30 AM EST Infusion Center Hematology/Oncology [address] [place] [address] IVIG for hypogammaglobulinemiaHematology/OncologyComment on above:IVIG for hypogammaglobulinemiaStart: 05-12-2024 End: 65-99-5222Qewrnuohz Iotqzffv31/20/2024 10:00 AM EST Specialty Pharmacy [facility] [address] [place], [place] [address]34-b[address] [address] Pharmacist, Specialtygroup [address] [place] [address] [address] [place], [place] [address] REFILL- Benlysta- PAx 02/11/25CC Specialty PharmacyComment on above:REFILL- Benlysta- PAx 02/11/25Start: 04-28-2024 End: 73-91-6813ED.doppler Extremity arteries - bilateral for physiologic artery studyVas art doppler lwr bilat mult lev/PVR Vascular Ultrasound Routine Peripheral vascular disease, unspecified ([facility]) Cold extremities Systemic lupus erythematosus ([facility]-HCC) Expected: 04/28/2024, Expires: 04/28/2025[facility] Work Phone: Comment on above:Expected: 04/28/2024, Expires: 04/28/2025Start: 04-24-2024 End: 73-52-8459Pcwqecv evaluation of patient and dykmqt8404/24/2024 9:30 AM EST Nurse Visit Hematology/Oncology [address] [facility] [place] [address] [phone] Hoda Marshall Nurse Sawyer [address] [facility] [place] [address] T38Hoajklwzpx/OncologyComment on above:V07Atcec: 04-18-2024 End: 33-53-8069Hiawrkn evaluation of patient and reportWest Baraboo Gastroenterology and Endoscopy CenterComment on above:referSiboStart: 04-14-2024 End: 62-37-8185glrjnwbqxlDhwfbhbami/OncologyComment on above:IVIG for hypogammaglobulinemiaREFILL- Benlysta- PAx 02/11/25Start: 04-11-2024 End: 88-66-3438Fsifjyzaj PharmacyCCF Specialty PharmacyComment on above:REFILL- Benlysta- PAx 02/11/25- NCA REFILL- Benlysta- PAx 02/11/25- Start: 04-06-2024 End: 77-02-7490AT.doppler Extremity arteries - bilateral for physiologic artery studyVas art doppler lwr bilat mult lev/PVR Vascular Ultrasound Routine Cold extremities Pain of lower extremity, unspecified laterality Systemic lupus erythematosus ([facility]-HCC) Expected: 04/06/2024, Expires: 2025[facility] Work Phone: Comment on above:Expected: 04/06/2024, Expires: 2025Start: 03-28-2024 End: 57-29-5277doqpjieslc99/05/2024 1:00 PM [facility] Hematology/Oncology [address] [place] [address] [place] [address] Vera Najera MD [address] [place] [address] [place] [address] 13 wk virtual after labs last weekHematology/OncologyComment on above:13 wk virtual after labs last weekStart: 03-23-2024 End: 99-30-1004eJVH in Blood by Coagulation assayAPTT Lab Routine Menorrhagia with regular cycle Expected: 03/23/2024 (Approximate), Expires: 03/23/2025[facility] HealthcareComment on above:Expected: 03/23/2024 (Approximate), Expires: 03/23/2025Start: 03-23-2024 End: 00-70-3925IY for pregnancyUS PELVIS-TRANSVAG IF INDICATED Imaging Routine Menorrhagia with regular cycle Expected: 03/23/2024(Approximate), Expires: 03/23/2025[facility] HealthcareComment on above:Expected: 03/23/2024 (Approximate), Expires: 03/23/2025Start: 03-21-2024 End: 44-99-7684Cgpbgkh evaluation of patient and rvrybp0203/21/2024 11:45 AM EDT Nurse Visit Hematology/Oncology [address] [place] [address] [place] [address] Hoda Marshall Nurse Sawyer [address] [place] [address] j72Rbsszmtoqb/OncologyComment on above:c59Kuqig: 03-21-2024 End: 08-21-2911Yxtlpde encounter giwkaboqp54/29/2024 11:15 AM EDT Office Visit [facility] Laboratory [address] [place] [address] LAbNortHarper University Hospital LaboratoryComment on above:LAbStart: 03-20-2024 End: 528471-vfifulcyyufmki D3 [Mass/volume] in Serum or PlasmaVITAMIN D 25 HYDROXY Lab Routine Vitamin D deficiency Expected: 03/20/2024 (Approximate), Expires: 12/29/2024[facility] ClinicComment on above:Expected: 03/20/2024 (Approximate), Expires: 12/29/2024Start: 03-20-2024 End: 34-15-8389IKJOT TB SCREENBLOOD TB SCREEN Lab Routine Screening-pulmonary TB Expected: 03/20/2024 (Approximate), Expires: 12/29/2024[facility] ClinicComment on above:Expected: 03/20/2024 (Approximate), Expires: 12/29/2024Start: 03-20-2024 End: 12-29-2024 reactive protein [Mass/volume] in Serum or PlasmaC-REACTIVE PROTEIN Lab Routine Elevated C-reactive protein (CRP) Elevated sed rate Expected: 03/20/2024 (Approximate), Expires: 12/29/2024[facility] ClinicComment on above:Expected: 03/20/2024 (Approximate), Expires: 12/29/2024Start: 03-20-2024 End: 41-69-4115HVZ W Auto Differential panel - BloodCOMPLETE BLOOD COUNT AND DIFFERENTIAL Lab Routine Megaloblastic anemia due to vitamin B12 deficiency Elevated sed rate Obstructive sleep apnea syndrome Expected: 03/20/2024 (Approximate), Expires: 06/19/2024[facility] ClinicComment on above:Expected: 03/20/2024 (Approximate), Expires: 06/19/2024Start: 03-20-2024 End: 82-28-9645Jyrbznugb (Vitamin B12) [Mass/volume] in Serum or PlasmaVITAMIN B12 Lab Routine Megaloblastic anemia due to vitamin B12 deficiency Elevated sed rate Obstructive sleep apnea syndrome Expected: 03/20/2024 (Approximate), Expires: 06/19/2024[facility]:Expected: 03/20/2024 (Approximate), Expires: 06/19/2024Start: 03-20-2024 End: 63-73-6351Vjritmeorublk metabolic 2000 panel - Serum or PlasmaCOMPREHENSIVE METABOLIC PANEL Lab Routine Megaloblastic anemia due to vitamin B12 deficiency Elevated sed rate Obstructive sleep apnea syndrome Expected: 03/20/2024 (Approximate), Expires: 06/19/2024[facility] Work Phone: Comment on above:Expected: 03/20/2024 (Approximate), Expires: 06/19/2024Start: 03-20-2024 End: 40-45-8797Rmnasuvfaxy sedimentation rateSEDIMENTATION RATE, WESTERGREN Lab Routine Elevated C-reactive protein (CRP) Elevated sed rate Expected: 03/20/2024 (Approximate), Expires: 12/29/2024[facility] Work Phone: Comment on above:Expected: 03/20/2024 (Approximate), Expires: 12/29/2024Start: 03-20-2024 End: 06-23-5447Btypmhxv [Mass/volume] in Serum or PlasmaFERRITIN Lab Routine Megaloblastic anemia due to vitamin B12 deficiency Elevated sed rate Obstructive sleep apnea syndrome Expected: 03/20/2024 (Approximate), Expires: 06/19/2024 [facility]:Expected: 03/20/2024 (Approximate), Expires: 06/19/2024Start: 03-20-2024 End: 49-45-3591Zzbbod [Mass/volume] in Serum or PlasmaFOLATE, SERUM Lab Routine Megaloblastic anemia due to vitamin B12 deficiency Elevated sed rate Obstructive sleep apnea syndrome Expected: 03/20/2024 (Approximate), Expires: 06/19/2024 [facility]Comment [facility]:Expected: 03/20/2024 (Approximate), Expires: 06/19/2024Start: 03-20-2024 End: 54-97-6150KMLZXZQWGATGBAH,IGG,IGA,IGMIMMUNOGLOBULINS,IGG,IGA,IGM Lab Routine Megaloblastic anemia due to vitamin B12 deficiency Elevatedsed rate Obstructive sleep apnea syndrome Expected: 03/20/2024 (Approximate), Expires: 06/19/2024[facility] ClinicComment on above:Expected: 03/20/2024 (Approximate), Expires: 06/19/2024Start: 03-20-2024 End: 91-66-7201Qlxo and Iron binding capacity panel - Serum or PlasmaIRON AND TIBC Lab Routine Megaloblastic anemia due to vitamin B12 deficiency Elevated sed rate Obstructive sleep apnea syndrome Expected: 03/20/2024 (Approximate), Expires: 06/19/2024[facility] ClinicComment on above:Expected: 03/20/2024 (Approximate), Expires: 06/19/2024Start: 03-18-2024 End: 19-82-3890Lulevqi encounter /26/2024 9:00 AM EDT [facility] Rheumatology [address] [place] [address] Lynne Ni MD [address] [place] [address] May offer 03/18/24 Sat REJ 4th floor in person/virtual/phone for lupusRheumatologyComment on above:May offer 03/18/24 Sat REJ 4th floor in person/virtual/phone for lupusStart: 42-83-1199Gizzrsb [facility] Work Phone: Start: 03-16-2024 End: 16-15-1625OX Breast - bilateralBilateral breast US complete Imaging Routine Nipple discharge Expected: 03/16/2024, Expires: 05/16/2025[facility] Work Phone: comment on above:Expected: 03/16/2024, Expires: 05/16/2025Start: 03-16-2024 End: 26-55-2148Aolifocku PharmacyCCF Specialty PharmacyComment on above:REFILL- Benlysta- PAx 02/11/25- NCA 09/2024-l/m 03/13ArrivedStart: 03-13-2024 End: 53-89-8875Wvvvfujle PharmacyBAPTIST HEALTH CORBIN Specialty PharmacyComment on above:REFILL- Benlysta- PAx 02/04/24- NCA 09/2024-, ND 02/23-renewal sub 02/13REFILL- Benlysta- PAx 02/11/25- NCA 09/2024-,Start: 02-22-2024 End: 37-59-2689Extnhdr evaluation of patient and fymovi7702/22/2024 11:45 AM EDT Nurse Visit Hematology/Oncology [address] [place] [address] Hoda Marshall Nurse Sawyer [address] [place] [address] y49Obzlxyvnif/OncologyComment on above:s58Ilytv: 02-22-2024 End: 59-52-9263Scdqjnk encounter mfwermuqx28/01/2024 11:15 AM EDT Office Visit [facility] [address] [place] [address] [facility] LaboratoryComment on above:LAbStart: 02-21-2024 End: 94-14-3451Zvhzfuw evaluation of patient and xesdvg4302/21/2024 10:45 AM EDT Nurse Visit Hematology/Oncology [address] [place] [address] Hoda Marshall Nurse Sawyer [address] [place] [address] r49Hdtswifwhg/OncologyComment on above:v72Jeaxl: 02-21-2024 End: 15-99-1250Sloiiyo encounter vesvtntsi11/30/2024 10:30 AM EDT Office Visit [facility] Laboratory [address] [place] [address] [facility] LaboratoryComment on above:LAbStart: 09-43-5383MvrvwnfbkChillicothe VA Medical Centertart: 02-14-2024 End: 70-35-2042Jnoyam-up encounterNeurologyComment on above:Cpap follow up REFILL- Benlysta- PAx 02/04/24- NCA 09/2024-, ND 02/23Start: 02-09-2024 End: 13-54-6687Qjvaqoc encounter dczhnaaqe26/18/2024 8:00 AM EDT Office Visit [facility] [address] [facility] [address] [place] [address] Zita Cuellar, HATCHERY SUPERVISOR [address] [address], [place] [phone] (Work) [facility] NE[facility]O 210Start: 01-27-2024 End: 63-13-6536Wcysjlmh identified in Blood by CultureBLOOD CULTURE Microbiology Routine Pseudomonas infection Expected: 01/27/2024, Expires: 04/27/[address] [facility] Work Phone: comment on above:Expected: 01/27/2024, Expires: 04/27/2024Start: 01-27-2024 End: 16-74-6166Bqmtjg-up yqmrwxsgq45/05/2024 10:00 AM EDT [facility] Infectious Disease [address] [facility] [address] Alhaji Victoria, [facility] [address] [place] [address] follow upInfectious DiseaseComment on above:follow up Start: 01-25-2024 End: 12-90-4260Vtansya evaluation of patient and reportHematology/Oncology Comment on above:b12B12(change date)Start: 01-25-2024 End: 12-92-4258Xyuvude encounter procedureNoMary Babb [facility] Center LaboratoryComment on above:LAbNO LAB ORDERS LAbStart: 70-66-3373Huaratirj vaccinationInfluenza Vaccine (#1)[facility] HealthcareComment on above:Postponed from 01/22/2023 (Patient Refused)Start: 07-21-0103Chczo-19 Vaccine ( season)Covid-19 Vaccine ()[facility]: 01-23-2024 Covid-19 Vaccine ()Covid-19 Vaccine () [facility]: 64-30-8452Lpelskxyz vaccinationMount Carmel Health Systemtart: 01-20-2024 End: 10-63-1468Psckwwxqc PharmacyCC Specialty PharmacyComment on above:refill - benlysta- NCA 09/2024-- pa exp: 02/04/24-pseudomonas oryzihabitans in my breastStart: 12-27-2023 End: 45-29-2120Qkzaikf evaluation of patient and zcmato9712/27/2023 12:00 PM EDT Nurse Visit Hematology/Oncology [address] [place] [address] [place] [address] [phone] Hoda Marshall Nurse Sawyer [address] [place] [address] [place] [address] p98Ilsjrtuwuh/OncologyComment on above:i97Qcskb: 12-27-2023 End: 13-41-4579Httinr-up pokbbedlr95/05/2024 11:30 AM EDT Visit (SP) Office Hematology/Oncology [address] [place] [address] [place] [address] Neda Hill, PA-C [address] [place] [address] 13 week follow up, labs 1 week beforeHematology/OncologyComment on above:13 week follow up, labs 1 week beforeStart: 12-27-2023 End: 22-64-6651Firqglm encounter acxzhimwg58/05/2024 11:15 AM EDT Office Visit [facility] [address] [place] [address] [place] [address] LAbNortHarper University Hospital LaboratoryComment on above:LAbStart: 12-13-2023 End: 88-34-9770Hzvbyvjih Lobaawgh47/22/2024 10:00 AM EDT Specialty Pharmacy [facility] [address] [id number] [address] Pharmacist, Specialtygroup [address] [place] [address] [address] [place], [place] [address] refill - benlysta- NCA - pa exp: 02/04/24-CCF Specialty PharmacyComment on above:refill - benlysta- NCA - pa exp: 02/04/24-Start: 12-10-2023 End: 39-00-7042Cxnjci-up vnwjixsda12/19/2024 10:45 AM EDT Visit (SP) Office Hematology/Oncology [address] [place] [address] Vera Najera MD [address] [place] [address] 13 week follow up, labs 1 week beforeHematology/Oncology Comment on above:13 week follow up, labs 1 week beforeStart: 12-04-2023 End: 658081-ljzuudtdazsshd D3 [Mass/volume] in Serum or PlasmaVITAMIN D 25 HYDROXY Lab Routine Vitamin D deficiency Expected: 12/04/2023 (Approximate), Expires: 09/03/2024[facility] Work Phone: Comment on above:Expected: 12/04/2023 (Approximate), Expires: 09/03/2024Start: 12-04-2023 End: 09-03-2024 reactive protein [Mass/volume] in Serum or PlasmaC-REACTIVE PROTEIN Lab Routine Elevated sed rate Elevated C-reactive protein (CRP) Expected: 12/04/2023 (Approximate), Expires: 09/03/2024[facility] Work Phone: Comment on above:Expected: 12/04/2023 (Approximate), Expires: 09/03/2024Start: 12-04-2023 End: [id number] panel - Blood by Automated countCOMPLETE BLOOD COUNT Lab Routine Anemia of chronic disease Expected: 12/04/2023 (Approximate), Expires: 09/03/2024[facility] Work Phone: Comment on above:Expected: 12/04/2023 (Approximate), Expires: 09/03/2024Start: 12-04-2023 End: [id number] metabolic 2000 panel - Serum or PlasmaCOMPREHENSIVE METABOLIC PANEL Lab Routine Elevated LFTs Expected: 12/04/2023 (Approximate), Expires: 09/03/2024[facility] Work Phone: Comment on above:Expected: 12/04/2023 (Approximate), Expires: 09/03/2024Start: 12-04-2023 End: [id number] sedimentation rateSEDIMENTATION RATE, WESTERGREN Lab Routine Elevated sed rate Elevated C-reactive protein (CRP) Expected: 12/04/2023 (Approximate), Expires: 09/03/2024[facility] Work Phone: Comment on above:Expected: 12/04/2023 (Approximate), Expires: 09/03/2024Start: 12-03-2023 End: 75-38-5430Yqplrvv evaluation of patient and seebau4312/03/2023 11:00 AM EDT Nurse Visit Hematology/Oncology [address] [place] [address] oHda Marshall Nurse Sawyer [address] [place] [address] r90Xodswdyyhl/OncologyComment on above:h91Cmkwo: 12-03-2023 End: 23-70-0062Evroful encounter xosfvelrn97/12/2024 10:45 AM EDT Office Visit [facility] Laboratory [address] [place] [address] labNortHar[facility] LaboratoryComment on above:labStart: 12-02-2023 End: 91-40-7048ECU W Auto Differential panel - BloodCOMPLETE BLOOD COUNT AND DIFFERENTIAL Lab Routine Megaloblastic anemia due to vitamin B12 deficiency High total serum IgM Expected: 12/02/2023 (Approximate), Expires: 09/08/[address] [facility] Work Phone: Comment on above:Expected: 12/02/2023 (Approximate), Expires: 09/08/2024Start: 12-02-2023 End: 48-49-2695Plrlyqvjz (Vitamin B12) [Mass/volume] in Serum or PlasmaVITAMIN B12 Lab Routine Megaloblastic anemia due to vitamin B12 deficiency High total serum IgM Expected: 12/02/2023 (Approximate), Expires: 09/08/2024[facility] Work Phone: Comment on above:Expected: 12/02/2023 (Approximate), Expires: 09/08/2024Start: 12-02-2023 End: 44-20-6418Ejbrmordsabdj metabolic 2000 panel - Serum or PlasmaCOMPREHENSIVE METABOLIC PANEL Lab Routine Megaloblastic anemia due to vitamin B12 deficiency High total serum IgM Expected: 12/02/2023 (Approximate), Expires: 09/08/[address] [facility] Work Phone: Comment on above:Expected: 12/02/2023 (Approximate), Expires: 09/08/2024Start: 12-02-2023 End: 83-04-2715Sopcefzczwd sedimentation rateSEDIMENTATION RATE, WESTERGREN Lab Routine Megaloblastic anemia due to vitamin B12 deficiency High total serum IgM Expected: 12/02/2023 (Approximate), Expires: 03/02/2024[facility] Work Phone: Comment on above:Expected: 12/02/2023 (Approximate), Expires: 03/02/2024Start: 12-02-2023 End: 98-64-6120Whaordjs [Mass/volume] in Serum or PlasmaFERRITIN Lab Routine Megaloblastic anemia due to vitamin B12 deficiency High total serum IgM Expecte d: 12/02/2023 (Approximate), Expires: 09/08/2024[facility] Work Phone: Comment on above:Expected: 12/02/2023 (Approximate), Expires: 09/08/2024Start: 12-02-2023 End: 57-78-4955Tytywm [Mass/volume] in Serum or PlasmaFOLATE, SERUM Lab Routine Megaloblastic anemia due to vitamin B12 deficiency High total serum IgM Ex pected: 12/02/2023 (Approximate), Expires: 09/08/2024[facility] Work Phone: Comment on above:Expected: 12/02/2023 (Approximate), Expires: 09/08/2024Start: 12-02-2023 End: 53-15-7209SyS [Mass/volume] in Serum or PlasmaIMMUNOGLOBULIN A Lab Routine Megaloblastic anemia due to vitamin B12 deficiency High total serum IgM Expected: 12/02/2023 (Approximate), Expires: 03/02/2024[facility] Work Phone: Comment on above:Expected: 12/02/2023 (Approximate), Expires: 03/02/2024Start: 12-02-2023 End: 46-27-8612AxR [Units/volume] in Serum or PlasmaIMMUNOGLOBULIN E Lab Routine Megaloblastic anemia due to vitamin B12 deficiency High total serum IgM Expected: 12/02/2023 (Approximate), Expires: 03/02/2024[facility] Work Phone: Comment on above:Expected: 12/02/2023 (Approximate), Expires: 03/02/2024Start: 12-02-2023 End: 81-91-8575BrY [Mass/volume] in Serum or PlasmaIMMUNOGLOBULIN G Lab Routine Megaloblastic anemia due to vitamin B12 deficiency High total serum IgM Expected: 12/02/2023 (Approximate), Expires: 03/02/2024[facility] Work Phone: Comment on above:Expected: 12/02/2023 (Approximate), Expires: 03/02/2024Start: 12-02-2023 End: 75-69-3958YwG [Mass/volume] in Serum or PlasmaIMMUNOGLOBULIN M Lab Routine Megaloblastic anemia due to vitamin B12 deficiency High total serum IgM Expected: 12/02/2023 (Approximate), Expires: 03/02/2024[facility] Work Phone: Comment on above:Expected: 12/02/2023 (Approximate), Expires: 03/02/2024Start: 12-02-2023 End: 82-99-2038Txra and Iron binding capacity panel - Serum or PlasmaIRON AND TIBC Lab Routine Megaloblastic anemia due to vitamin B12 deficiency High total serum IgM Expected: 12/02/2023 (Approximate), Expires: 09/08/2024[facility] Work Phone: Comment on above:Expected: 12/02/2023 (Approximate), Expires: 09/08/2024Start: 11-29-2023 End: 04-88-2719Mzyztpg evaluation of patient and qzgshk9211/29/2023 2:15 PM EDT Nurse Visit Hematology/Oncology [address] [place] [address] [phone] Hoda Marshall Nurse Sawyer [address] [place] [address] p95Tvskaoskgt/OncologyComment on above:o06Ridct: 11-15-2023 End: 54-15-0052Zqvnpzhpz Ivritxhc45/24/2024 10:00 AM EDT Specialty Pharmacy [facility] [address] [place] [id number] Pharmacist, [facility] [address] [place] [address] [place], [place] [address] refill - benlysta- NCA - pa exp: 02/04/24-[facility]acyComment on above:refill - benlysta- NCA - pa exp: 02/04/24-Start: 10-29-2023 End: 59-48-3717Uwaubsr evaluation of patient and xacxwp7710/29/2023 11:00 AM EDT Nurse Visit Hematology/Oncology [address] [place] [address] Hoda Marshall Nurse Sawyer [address] [place] [address] p33Qqplggcmqn/OncologyComment on above:u05Toxyb: 10-15-2023 End: 81-05-2427Cnnpdjpmt Jjwzwqjl26/24/2024 10:00 AM EDT Specialty Pharmacy [facility] [address] [place] [id number] Pharmacist, [facility] [address] [place] [address] [place], [place] [address] refill - benlysta-Thursdays- pa exp: 02/04/24-l/m 10/11 Specialty PharmacyComment on above:refill - benlysta-Thursdays- pa exp: 02/04/24-l/m art: 10-12-2023 End: 14-99-5230Osxjdhnsm Qufztmti17/21/2024 10:00 AM EDT Specialty Pharmacy [facility] [address] [place] [id number] Pharmacist, [facility] [address] [place] [address] [place], [place] [address] refill - benlysta-Thursdays- pa exp: 02/04/24-[facility]acy[facility] on above:refill - benlysta-Thursdays- pa exp: 02/04/24-Start: 10-05-2023 End: 01-41-1608Eqjppkr encounter xyvounpqc18/14/2024 8:00 AM EDT [facility] Rheumatology [address] [place], [place] [id number] Lynne Ni MD [address] [place] [address] 6 mo f/u for LupusRheumatologyComment on above:6 mo f/u for LupusStart: 10-01-2023 End: 05-04-7273Xwgbxpm evaluation of patient and rfbldg1210/01/2023 11:00 AM EDT Nurse Visit Hematology/Oncology [address] [place] [address] [phone] Hoda Marshall Nurse Sawyer [address] [place] [address] m02Rzcyzsxrcf/OncologyComment on above:g33Skfws: 09-16-2023 End: 26-43-2112Hygwryqwi Drmntmhv54/25/2024 10:00 AM EDT Specialty Pharmacy [facility] [address] [id number] [address] Pharmacist, [facility] [address] [place] [address] [place] [address] refill - benlysta-- pa exp: 02/04/24-[facility] PharmacyComment on above:refill - benlysta-- pa exp: 02/04/24-lvmStart: 09-13-2023 End: 93-13-3249Hmlkfwl encounter nxccnjoxo91/22/2024 9:00 AM EDT Office Visit [facility] [address] [place] [address] Kade Early MD [address] [facility] [address] [id number] [facility] NEURStart: 07-19-2023 End: 29-69-5509Yedmmxv encounter procedureR[facility] Hospitaltart: 07-15-2023 End: 08-20-9854Poaribn encounter loccnqnnr71/22/2024 10:50 AM EST Office Visit [facility] [address] [place] [address] Bernabe English MD [address] [place] [address] [facility] DERMStart: 07-06-2023 End: 91-45-6728Xktlzad encounter szaksnvhy26/13/2024 2:30 PM EST Office Visit [facility] [address] [place] [address], [place] [phone] Kade Early MD [address] [facility] [address] [place] [address], [place] [address] [facility] NEURO 210Start: 07-06-2023 End: 50-35-6003Eoijpcj electrophoresis, serumProtein electrophoresis, serum Lab Routine Autoimmune disease (CMS/HCC) Autonomic dysfunction Expected: 07/06/2023 (Approximate), Expires: 07/06/2024[facility] Work Phone: Comment on above:Expected: 07/06/2023 (Approximate), Expires: 07/06/2024Start: 07-06-2023 End: 23-97-6272Cyewvun electrophoresis, urineProtein electrophoresis, urine Lab Routine Autoimmune disease (CMS/HCC) Autonomic dysfunction Expected: 07/06/2023 (Approximate), Expires: 07/06/2024[facility]Expected: 07/06/2023 (Approximate), Expires: 07/06/2024Start: 06-09-2023 End: 06-47-8847Blpxic monitor studyHolter Or Event Circulation Assistant Cardiac Services Routine Irregular heart rate Expected: 06/09/2023 (Approximate), Expires: 06/09/2024[facility] Work Phone: Comment on above:Expected: 06/09/2023 (Approximate), Expires: 06/09/2024Start: 06-09-2023 End: 88-00-1667Jugrx 1996 panel - Serum or PlasmaLipid Panel Lab Routine Primary hypertension Expected: 06/09/2023 (Approximate), Expires: 06/09/2024[facility] Work Phone: Comment on above:Expected: 06/09/2023 (Approximate), Expires: 06/09/2024Start: 06-09-2023 End: 31-51-8723Hwkuuhtysxh [Units/volume] in Serum or PlasmaThyroid Stimulating Hormone Lab Routine Irregular heart rate Expected: 06/09/2023 (Approximate), Exp ires: 06/09/2024[facility] Work Phone: Comment on above:Expected: 06/09/2023 (Approximate), Expires: 06/09/2024Start: 06-09-2023 End: 17-69-2789Fhqmzkrwe (T4) free [Mass/volume] in Serum or PlasmaThyroxine, Free Lab Routine Irregular heart rate Expected: 06/09/2023 (Approximate), Expires: 06/09/2024[facility] Work Phone: Comment on above:Expected: 06/09/2023 (Approximate), Expires: 06/09/2024Start: 06-09-2023 End: 77-24-2471QS Heart TransthoracicTransthoracic Echo (TTE) Complete Echocardiography Routine Irregular heart rate Obstructive sleep apnea syndrome Expected: 06/09/2023 (Approximate), Expires: 06/09/2025[facility] Service Area Work Phone: Comment on above:Expected: 06/09/2023 (Approximate), Expires: 06/09/2025Start: 04-25-2023 End: 898175-nwdwovbbpdhyue D3 [Mass/volume] in Serum or PlasmaVITAMIN D 25 HYDROXY Lab Routine Vitamin D deficiency Expected: 04/25/2023 (Approximate), Expires: 01/25/2024[facility] Work Phone: Comment on above:Expected: 04/25/2023 (Approximate), Expires: 01/25/2024Start: 04-25-2023 End: 01-25-2024 reactive protein [Mass/volume] in Serum or PlasmaC-REACTIVE PROTEIN (CRP) Lab Routine Elevated sed rate Elevated C-reactive protein (CRP) Expected: 04/25/2023 (Approximate), Expires: 01/25/2024[facility] Work Phone: Comment on above:Expected: 04/25/2023 (Approximate), Expires: 01/25/2024Start: 04-25-2023 End: 97-64-3370VUF panel - Blood by Automated countCBC Lab Routine Anemia of chronic disease Expected: 04/25/2023 (Approximate), Expires: 01/25/2024[facility] Work Phone: Comment on above:Expected: 04/25/2023 (Approximate), Expires: 01/25/2024Start: 04-25-2023 End: 71-41-8652Ucigerrltuuup metabolic 2000 panel - Serum or PlasmaCOMP METABOLIC PANEL Lab Routine Elevated LFTs Expected: 04/25/2023 (Approximate), Expires: 01/25/2024[facility] Work Phone: Comment on above:Expected: 04/25/2023 (Approximate), Expires: 01/25/2024Start: 04-25-2023 End: 07-07-7592Lvrkbmnqdno sedimentation rateSED RATE WESTERGREN Lab Routine Elevated sed rate Elevated C-reactive protein (CRP) Expected: 04/25/2023 (Approximate), Expires: 01/25/2024[facility] Work Phone: Comment on above:Expected: 04/25/2023 (Approximate), Expires: 01/25/2024Start: 55-68-4198ERKAC-19 Vaccine (4 - Pfizer risk series) COVID-19 Vaccine (4 - Pfizer risk series)[facility]: 71-09-6637Rqowj-19 Vaccine ()Covid-19 Vaccine ()[facility]: 67-50-7246Wdorg-19 Vaccine () Covid-19 Vaccine ()[facility]: 04-16-2023 End: 66-38-9454KUD W Auto Differential panel - BloodCBC + DIFF Lab Routine Megaloblastic anemia due to vitamin B12 deficiency Elevated sed rate Chronic fatigue and malaise High total serum IgM JOSE RAFAEL (obstructive sleep apnea) Expected: 04/16/2023 (Approximate), Expires: 02/20/2024[facility] Work Phone: Comment on above:Expected: 04/16/2023 (Approximate), Expires: 02/20/2024Start: 04-16-2023 End: 22-58-7384Nkxjapwsm (Vitamin B12) [Mass/volume] in Serum or PlasmaVITAMIN B12 BLOOD Lab Routine Megaloblastic anemia due to vitamin B12 deficiency Elevated sed rate Chronic fatigue and malaise High total serum IgM JOSE RAFAEL (obstructive sleep apnea) Expected: 04/16/2023 (Approximate), Expires: 02/20/2024[facility] Work Phone: Comment on above:Expected: 04/16/2023 (Approximate), Expires: 02/20/2024Start: 04-16-2023 End: 95-74-2610Qupqwqmdhstau metabolic 2000 panel - Serum or PlasmaCOMP METABOLIC PANEL Lab Routine Megaloblastic anemia due to vitamin B12 deficiency Elevated sed rate Chronic fatigue and malaise High total serum IgM JOSE RAFAEL (obstructive sleep apnea) Expected: 04/16/2023 (Approximate), Expires: 02/20/2024[facility] Work Phone: Comment on above:Expected: 04/16/2023 (Approximate), Expires: 02/20/2024Start: 04-16-2023 End: 33-79-5965Mzgjukfe [Mass/volume] in Serum or PlasmaFERRITIN BLD Lab Routine Megaloblastic anemia due to vitamin B12 deficiency Elevated sed rate Chronic fatigue and malaise High total serum IgM JOSE RAFAEL (obstructive sleep apnea) Expected: 04/16/2023 (Approximate), Expires: 02/20/2024[facility] Work Phone: Comment on above:Expected: 04/16/2023 (Approximate), Expires: 02/20/2024Start: 04-16-2023 End: 84-99-3679Wmytts [Mass/volume] in Serum or PlasmaFOLATE SERUM Lab Routine Megaloblastic anemia due to vitamin B12 deficiency Elevated sed rate Chronic fatigue and malaise High total serum IgM JOSE RAFAEL (obstructive sleep apnea) Expected: 04/16/2023 (Approximate), Expires: 02/20/2024[facility] Work Phone: Comment on above:Expected: 04/16/2023 (Approximate), Expires: 02/20/2024Start: 04-16-2023 End: 85-82-4598Qpte and Iron binding capacity panel - Serum or PlasmaIRON + TIBC Lab Routine Megaloblastic anemia due to vitamin B12 deficiency Elevated sed rate Chronic fatigue and malaise High total serum IgM JOSE RAFAEL (obstructive sleep apnea) Expected: 04/16/2023 (Approximate), Expires: 02/20/2024[facility] Work Phone: Comment on above:Expected: 04/16/2023 (Approximate), Expires: 02/20/2024Start: 13-30-1645RSMRT-19 Vaccine (3 - Pfizer risk series) COVID-19 Vaccine (3 - Pfizer risk series)[facility]: 42-09-3470Ipjreqgl mellitus screeningDiabetes ScreeningCincinnati Children's Hospital [facility]: 03-10-2023 End: 59-54-5981Cioaofh [Units/volume] in Serum or PlasmaINSULIN ASSAY BLOOD Lab Routine Insulin resistance, unspecified Expected: 03/10/2023, Expires: 06/09[facility] Work Phone: comment on above:Expected: 03/10/2023, Expires: 06/09/2023Start: 03-10-2023 End: 36-49-2686LKHIKAE ANTIBODY BLDINSULIN ANTIBODY BLD Lab Routine Insulin resistance, unspecified Expected: 03/10/2023, Expires: 06/09/2023[facility] Work Phone: comment on above:Expected: 03/10/2023, Expires: 06/09/2023Start: 02-11-2023 End: 33-68-9292Sdqq-2-Microglobulin [Mass/volume] in Serum or PlasmaB2 MICROGLOBULIN B Lab Routine Megaloblastic anemia due to vitamin B12 deficiency High total serum IgM Elevated sed rate Expected: 02/11/2023 (Approximate), Expires: 02/08/2024[facility] Work Phone: Comment on above:Expected: 02/11/2023 (Approximate), Expires: 02/08/2024Start: 02-11-2023 End: 51-44-0602Zozwqmv.ionized [Moles/volume] in BloodCALCIUM IONIZED BLOOD Lab Routine Megaloblastic anemia due to vitamin B12 deficiency High total serum IgM Elevated sed rate Expected: 02/11/2023 (Approximate), Expires: 02/08/[address] [facility] Work Phone: Comment on above:Expected: 02/11/2023 (Approximate), Expires: 02/08/2024Start: 02-11-2023 End: 38-93-0537OKM W Auto Differential panel - BloodCBC + DIFF Lab Routine Megaloblastic anemia due to vitamin B12 deficiency High total serum IgM Elevated sed rate Expected: 02/11/2023 (Approximate), Expires: 02/08/2024[facility] Work Phone: Comment on above:Expected: 02/11/2023 (Approximate), Expires: 02/08/2024Start: 02-11-2023 End: 89-77-2468Uefgcmyic (Vitamin B12) [Mass/volume] in Serum or PlasmaVITAMIN B12 BLOOD Lab Routine Megaloblastic anemia due to vitamin B12 deficiency High total serum IgM Elevated sed rate Expected: 02/11/2023 (Approximate), Expires: 02/08/2024[facility] Work Phone: Comment on above:Expected: 02/11/2023 (Approximate), Expires: 02/08/2024Start: 02-11-2023 End: 56-04-7515Ghlmviudgtezr metabolic 2000 panel - Serum or PlasmaCOMP METABOLIC PANEL Lab Routine Megaloblastic anemia due to vitamin B12 deficiency High total serum IgM Elevated sed rate Expected: 02/11/2023 (Approximate), Expires: 02/08/2024[facility] Work Phone: Comment on above:Expected: 02/11/2023 (Approximate), Expires: 02/08/2024Start: 02-11-2023 End: 00-78-7203Drngotxa [Mass/volume] in Serum or PlasmaFERRITIN BLD Lab Routine Megaloblastic anemia due to vitamin B12 deficiency High total serum IgM Nicole vated sed rate Expected: 02/11/2023 (Approximate), Expires: 02/08/2024[facility] Work Phone: Comment on above:Expected: 02/11/2023 (Approximate), Expires: 02/08/2024Start: 02-11-2023 End: 27-66-9478Dfuecl [Mass/volume] in Serum or PlasmaFOLATE SERUM Lab Routine Megaloblastic anemia due to vitamin B12 deficiency High total serum IgM Elevated sed rate Expected: 02/11/2023 (Approximate), Expires: 02/08/2024[facility] Work Phone: Comment on above:Expected: 02/11/2023 (Approximate), Expires: 02/08/2024Start: 02-11-2023 End: 80-01-0438Cmzf and Iron binding capacity panel - Serum or PlasmaIRON + TIBC Lab Routine Megaloblastic anemia due to vitamin B12 deficiency High total serum IgM Elevated sed rate Expected: 02/11/2023 (Approximate), Expires: 02/08/[address] [facility] Work Phone: Comment on above:Expected: 02/11/2023 (Approximate), Expires: 02/08/2024Start: 02-11-2023 End: 00-04-6808YPURO/FARMER,FREE,SERKAPPA/FARMER,FREE,SER Lab Routine Megaloblastic anemia due to vitamin B12 deficiency High total serumIgM Elevated sed rate Expected: 02/11/2023 (Approximate), Expires: 04/13/2023[facility] Work Phone: Comment on above:Expected: 02/11/2023 (Approximate), Expires: 04/13/2023Start: 02-11-2023 End: 66-92-9010Cnmrkav dehydrogenase [Enzymatic activity/volume] in Serum or PlasmaLD LACTATE DEHYDRO Lab Routine Megaloblastic anemia due to vitamin B12 deficiency High total serum IgM Elevated sed rate Expected: 02/11/2023 (Approximate), Expires: 02/08/2024[facility] Work Phone: Comment on above:Expected: 02/11/2023 (Approximate), Expires: 02/08/2024Start: 02-11-2023 End: 65-65-4499JDJSNXBXEH PROTEIN, SERUM (BLOOD)MONOCLONAL PROTEIN, SERUM (BLOOD) Lab Routine Megaloblastic anemia due to vitamin B12 deficiency High total serum IgM Elevated sed rate Expected: 02/11/2023 (Approximate), Expires: 02/08/2024[facility] Work Phone: Comment on above:Expected: 02/11/2023 (Approximate), Expires: 02/08/2024Start: 02-11-2023 End: 45-10-5086Ixgnidtnp [Mass/volume] in Serum or PlasmaPHOSPHORUS INORGANIC Lab Routine Megaloblastic anemia due to vitamin B12 deficiency High total serum IgM Elevated sed rate Expected: 02/11/2023 (Approximate), Expires: 02/08/[address] [facility] Work Phone: Comment on above:Expected: 02/11/2023 (Approximate), Expires: 02/08/2024Start: 02-11-2023 End: 79-82-8349ADAHWYJ ELECTROPHORESIS SERUM W/INTERPPROTEIN ELECTROPHORESIS SERUM W/INTERP Lab Routine Megaloblastic anemia due to vitamin B12 deficiency High total serum IgM Elevated sed rate Expected: 02/11/2023 (Approximate), Expires: 02/08/2024[facility] Work Phone: Comment on above:Expected: 02/11/2023 (Approximate), Expires: 02/08/2024Start: 02-11-2023 End: 45-41-2002Xtizb [Mass/volume] in Serum or PlasmaURIC ACID BLOOD Lab Routine Megaloblastic anemia due to vitamin B12 deficiency High total serum IgMElevated sed rate Expected: 02/11/2023 (Approximate), Expires: 02/08/2024[facility] Work Phone: Comment on above:Expected: 02/11/2023 (Approximate), Expires: 02/08/2024Start: 93-50-0887Zcmjwrrlm vaccinationMount Carmel Health Systemtart: 12-17-2022 End: 16-56-1288FAW W Auto Differential panel - BloodCBC + DIFF Lab Routine Megaloblastic anemia due to vitamin B12 deficiency Expected: 12/17/2022 (Appr oximate), Expires: 10/23/2023[facility] Work Phone: Comment on above:Expected: 12/17/2022 (Approximate), Expires: 10/23/2023Start: 12-17-2022 End: 14-78-4556Jdoorezie (Vitamin B12) [Mass/volume] in Serum or PlasmaVITAMIN B12 BLOOD Lab Routine Megaloblastic anemia due to vitamin B12 deficiency Expected: 12/17/2022 (Approximate), Expires: 10/23/2023[facility] Work Phone: Comment on above:Expected: 12/17/2022 (Approximate), Expires: 10/23/2023Start: 12-17-2022 End: 27-88-4385Eqnzqmlvsgoor metabolic 2000 panel - Serum or PlasmaCOMP METABOLIC PANEL Lab Routine Megaloblastic anemia due to vitamin B12 deficiency Expected: 12/17/2022 (Approximate), Expires: 10/23/2023[facility] Work Phone: Comment on above:Expected: 12/17/2022 (Approximate), Expires: 10/23/2023Start: 12-17-2022 End: 56-68-8472Xwnuuogy [Mass/volume] in Serum or PlasmaFERRITIN BLD Lab Routine Megaloblastic anemia due to vitamin B12 deficiency Expected: 12/17/2022 (Ap proximate), Expires: 10/23/2023[facility] Work Phone: Comment on above:Expected: 12/17/2022 (Approximate), Expires: 10/23/2023Start: 12-17-2022 End: 93-20-7947Pwrozo [Mass/volume] in Serum or PlasmaFOLATE SERUM Lab Routine Megaloblastic anemia due to vitamin B12 deficiency Expected: 12/17/2022 (Ap proximate), Expires: 10/23/2023[facility] Work Phone: Comment on above:Expected: 12/17/2022 (Approximate), Expires: 10/23/2023Start: 12-17-2022 End: 37-10-2347Ltij and Iron binding capacity panel - Serum or PlasmaIRON + TIBC Lab Routine Megaloblastic anemia due to vitamin B12 deficiency Expected: 12/17/2022 (Approximate), Expires: 10/23/2023[facility] Work Phone: Comment on above:Expected: 12/17/2022 (Approximate), Expires: 10/23/2023Start: 10-23-2022 End: 487200-ygumrsrzqlddoe D3 [Mass/volume] in Serum or PlasmaVITAMIN D 25 HYDROXY Lab Routine Megaloblastic anemia due to vitamin B12 deficiency Elevated sed rate High total serum IgM Chronic fatigue and malaise JOSE RAFAEL (obstructive sleep apnea) Expected: 10/23/2022, Expires: 12/23/2022[facility] Work Phone: Comment on above:Expected: 10/23/2022, Expires: 12/23/2022Start: 10-23-2022 End: 12-23-2022 reactive protein [Mass/volume] in Serum or PlasmaC-REACTIVE PROTEIN (CRP) Lab Routine Megaloblastic anemia due to vitamin B12 deficiency Elevated sed rate High total serum IgM Chronic fatigue and malaise JOSE RAFAEL (obstructive sleep apnea) Expected: 10/23/2022, Expires: 12/23/2022[facility] Work Phone: Comment on above:Expected: 10/23/2022, Expires: 12/23/2022Start: 10-23-2022 End: 50-09-1361XRM W Auto Differential panel - BloodCBC + DIFF Lab Routine Megaloblastic anemia due to vitamin B12 deficiency Elevated sed rate High total serum IgM Chronic fatigue and malaise JOSE RAFAEL (obstructive sleep apnea) Expected: 10/23/2022, Expires: 12/23/2022[facility] Work Phone: Comment on above:Expected: 10/23/2022, Expires: 12/23/2022Start: 10-23-2022 End: 58-44-7504Ngaewivbh (Vitamin B12) [Mass/volume] in Serum or PlasmaVITAMIN B12 BLOOD Lab Routine Megaloblastic anemia due to vitamin B12 deficiency Elevated sed rate High total serum IgM Chronic fatigue and malaise JOSE RAFAEL (obstructive sleep apnea) Expected: 10/23/2022,Expires: 12/23/2022[facility] Work Phone: Comment on above:Expected: 10/23/2022, Expires: 12/23/2022Start: 10-23-2022 End: 59-96-1678Wtbkqnovozmth metabolic 2000 panel - Serum or PlasmaCOMP METABOLIC PANEL Lab Routine Megaloblastic anemia due to vitamin B12 deficiency Elevated sed rate High total serum IgM Chronic fatigue and malaise JOSE RAFAEL (obstructive sleep apnea) Expected: 10/23/2022, Expires: 12/23/2022[facility] Work Phone: Comment on above:Expected: 10/23/2022, Expires: 12/23/2022Start: 10-23-2022 End: 72-41-4448Fjhcimlmxqy sedimentation rateSED RATE WESTERGREN Lab Routine Megaloblastic anemia due to vitamin B12 deficiency Elevated sed rate High total serum IgM Chronic fatigue and malaise JOSE RAFAEL (obstructive sleep apnea) Expected: 10/23/2022, Expires: 12/23/2022[facility] Work Phone: Comment on above:Expected: 10/23/2022, Expires: 12/23/2022Start: 10-23-2022 End: 45-39-7697Bxffgup dehydrogenase [Enzymatic activity/volume] in Serum or PlasmaLD LACTATE DEHYDRO Lab Routine Megaloblastic anemia due to vitamin B12 deficiency Elevated sed rateHigh total serum IgM Chronic fatigue and malaise JOSE RAFAEL (obstructive sleep apnea) Expected: 10/23/2022, Expires: 12/23/2022[facility] Work Phone: Comment on above:Expected: 10/23/2022, Expires: 12/23/2022Start: 10-23-2022 End: 75-18-7750CJIJARFDIC PROTEIN, SERUM (BLOOD)MONOCLONAL PROTEIN, SERUM (BLOOD) Lab Routine Megaloblastic anemia due to vitamin B12 deficiency Elevated sed rate High total serum IgM Chronic fatigue and malaise JOSE RAFAEL (obstructive sleep apnea) Expected: 10/23/2022, Expires: 12/23/2022[facility] Work Phone: Comment on above:Expected: 10/23/2022, Expires: 12/23/2022Start: 10-23-2022 End: 82-43-4934RPSA ELECT SERUM WITH DANA AND INTERPPROT ELECT SERUM WITH DANA AND INTERP Lab Routine Megaloblastic anemia due to vitamin B12 deficiencyElevated sed rate High total serum IgM Chronic fatigue and malaise JOSE RAFAEL (obstructive sleep apnea) Expected: 10/23/2022, Expires: 12/23/2022[facility] Work Phone: Comment on above:Expected: 10/23/2022, Expires: 12/23/2022Start: 09-19-2022 End: 94-81-4847GZQ panel - Blood by Automated countCBC Lab Routine Anemia of chronic disease Expected: 09/19/2022 (Approximate), Expires: 08/20/2023[facility] Work Phone: Comment on above:Expected: 09/19/2022 (Approximate), Expires: 08/20/2023Start: 09-19-2022 End: 79-82-9983Jdxyknjwxokkp metabolic 2000 panel - Serum or PlasmaCOMP METABOLIC PANEL Lab Routine Elevated LFTs Expected: 09/19/2022 (Approximate), Expires: 08/20/2023[facility] Work Phone: Comment on above:Expected: 09/19/2022 (Approximate), Expires: 08/20/2023Start: 09-19-2022 End: 71-62-3880WODB PHENOTYPE/ENZYME ACTIVITYTPMT PHENOTYPE/ENZYME ACTIVITY Lab Routine 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 Expected: 09/19/2022 (Approximate), Expires: 11/19/2022[facility] Work Phone: Comment on above:Expected: 09/19/2022 (Approximate), Expires: 11/19/2022Start: 08-28-2022 End: 06-53-315975469003-ubwpjhajgljaes D3 [Mass/volume] in Serum or PlasmaVITAMIN D 25 HYDROXY Lab Routine Megaloblastic anemia due to vitamin B12 deficiency Elevated sed rate High total serum IgM Chronic fatigue and malaise Expected: 08/28/2022 (Approximate), Expires: 10/28/2022[facility] Work Phone: Comment on above:Expected: 08/28/2022 (Approximate), Expires: 10/28/2022Start: 08-28-2022 End: 67-59-3618Upbe-2-Microglobulin [Mass/volume] in Serum or PlasmaB2 MICROGLOBULIN B Lab Routine Megaloblastic anemia due to vitamin B12 deficiency Elevated sed rateHigh total serum IgM Chronic fatigue and malaise Expected: 08/28/2022 (Approximate), Expires: 07/26/2023[facility] Work Phone: Comment on above:Expected: 08/28/2022 (Approximate), Expires: 07/26/2023Start: 08-28-2022 End: 10-28-2022 reactive protein [Mass/volume] in Serum or PlasmaC-REACTIVE PROTEIN (CRP) Lab Routine Megaloblastic anemia due to vitamin B12 deficiency Elevated sed rate High total serum IgM Chronic fatigue and malaise Expected: 08/28/2022 (Approximate), Expires:10/28/2022[facility] Work Phone: Comment on above:Expected: 08/28/2022 (Approximate), Expires: 10/28/2022Start: 08-28-2022 End: 40-13-6947Pauevla.ionized [Moles/volume] in BloodCALCIUM IONIZED BLOOD Lab Routine Megaloblastic anemia due to vitamin B12 deficiency Elevated sed rate High total serum IgM Chronic fatigue and malaise Expected: 08/28/2022 (Approximate), Expires: 07/26/2023[facility] Work Phone: Comment on above:Expected: 08/28/2022 (Approximate), Expires: 07/26/2023Start: 08-28-2022 End: 80-60-2111KJG W Auto Differential panel - BloodCBC + DIFF Lab Routine Megaloblastic anemia due to vitamin B12 deficiency Elevated sed rate High total serum IgM Chronic fatigue and malaise Expected: 08/28/2022 (Approximate), Expires: 07/26/2023[facility] Work Phone: Comment on above:Expected: 08/28/2022 (Approximate), Expires: 07/26/2023Start: 08-28-2022 End: 57-29-1838Ccxujyggg (Vitamin B12) [Mass/volume] in Serum or PlasmaVITAMIN B12 BLOOD Lab Routine Megaloblastic anemia due to vitamin B12 deficiency Elevated sed rate High total serum IgM Chronic fatigue and malaise Expected: 08/28/2022 (Approximate), Expires: 10/28/2022[facility] Work Phone: Comment on above:Expected: 08/28/2022 (Approximate), Expires: 10/28/2022Start: 08-28-2022 End: 23-80-6749Jnjsewlmlqzaw metabolic 2000 panel - Serum or PlasmaCOMP METABOLIC PANEL Lab Routine Megaloblastic anemia due to vitamin B12 deficiency Elevated sed rate High total serum IgM Chronic fatigue and malaise Expected: 08/28/2022 (Approximate), Expires: 07/26/2023[facility] Work Phone: Comment on above:Expected: 08/28/2022 (Approximate), Expires: 07/26/2023Start: 08-28-2022 End: 10-91-4172Bvppfmhdxrg sedimentation rateSED RATE WESTERGREN Lab Routine Megaloblastic anemia due to vitamin B12 deficiency Elevated sed rate High total serum IgM Chronic fatigue and malaise Expected: 08/28/2022 (Approximate), Expires: 10/28/2022[facility] Work Phone: Comment on above:Expected: 08/28/2022 (Approximate), Expires: 10/28/2022Start: 08-28-2022 End: 98-38-1808CFOUY/FARMER,FREE,SERKAPPA/FARMER,FREE,SER Lab Routine Megaloblastic anemia due to vitamin B12 deficiency Elevated sed rate High total serum IgM Chronic fatigue and malaise Expected: 08/28/2022 (Approximate), Expires: 10/28[facility] Work Phone: Comment on above:Expected: 08/28/2022 (Approximate), Expires: 10/28/2022Start: 08-28-2022 End: 75-07-7301Unmlkzg dehydrogenase [Enzymatic activity/volume] in Serum or PlasmaLD LACTATE DEHYDRO Lab Routine Megaloblastic anemia due to vitamin B12 deficiency Elevated sed rateHigh total serum IgM Chronic fatigue and malaise Expected: 08/28/2022 (Approximate), Expires: 07/26/2023[facility] Work Phone: Comment on above:Expected: 08/28/2022 (Approximate), Expires: 07/26/2023Start: 08-28-2022 End: 39-78-3679PWRGACWUVO PROTEIN, SERUM (BLOOD)MONOCLONAL PROTEIN, SERUM (BLOOD) Lab Routine Megaloblastic anemia due to vitamin B12 deficiency Elevated sed rate High total serum IgM Chronic fatigue and malaise Expected: 08/28/2022 (Approximate),Expires: 07/26/2023[facility] Work Phone: Comment on above:Expected: 08/28/2022 (Approximate), Expires: 07/26/2023Start: 08-28-2022 End: 21-20-8572Vjgspseuo [Mass/volume] in Serum or PlasmaPHOSPHORUS INORGANIC Lab Routine Megaloblastic anemia due to vitamin B12 deficiency Elevated sed rate High total serum IgM Chronic fatigue and malaise Expected: 08/28/2022 (Approximate), Expires: 07/26/2023[facility] Work Phone: Comment on above:Expected: 08/28/2022 (Approximate), Expires: 07/26/2023Start: 08-28-2022 End: 00-85-7979ANUIKRU ELECTROPHORESIS SERUM W/INTERPPROTEIN ELECTROPHORESIS SERUM W/INTERP Lab Routine Megaloblastic anemia due to vitamin B12 deficiency Elevated sed rate High total serum IgM Chronic fatigue and malaise Expected: 08/28/2022 (Approximate), Expires: 07/26/2023[facility] Work Phone: Comment on above:Expected: 08/28/2022 (Approximate), Expires: 07/26/2023Start: 08-28-2022 End: 52-73-9750Mcsri [Mass/volume] in Serum or PlasmaURIC ACID BLOOD Lab Routine Megaloblastic anemia due to vitamin B12 deficiency Elevated sed rate High total serum IgM Chronic fatigue and malaise Expected: 08/28/2022 (Approximate), Expires: 07/26/2023[facility] Work Phone: Comment on above:Expected: 08/28/2022 (Approximate), Expires: 07/26/2023Start: 07-15-2022 End: 79-87-3478Mhrk-2-Microglobulin [Mass/volume] in Serum or PlasmaB2 MICROGLOBULIN B Lab Routine High total serum IgM Expected: 07/15/2022 (Approximate), Expires: 05/20/2023[facility] Work Phone: Comment on above:Expected: 07/15/2022 (Approximate), Expires: 05/20/2023Start: 07-15-2022 End: 41-44-0096Cfjzfgj.ionized [Moles/volume] in BloodCALCIUM IONIZED BLOOD Lab Routine High total serum IgM Expected: 07/15/2022 (Approximate), Expires: 05/20/2023[facility] Work Phone: Comment on above:Expected: 07/15/2022 (Approximate), Expires: 05/20/2023Start: 07-15-2022 End: 59-36-0512ECT W Auto Differential panel - BloodCBC + DIFF Lab Routine High total serum IgM Expected: 07/15/2022 (Approximate), Expires: 05/20/2023[facility] Work Phone: Comment on above:Expected: 07/15/2022 (Approximate), Expires: 05/20/2023Start: 07-15-2022 End: 18-66-1885Kvciruxgflixt metabolic 2000 panel - Serum or PlasmaCOMP METABOLIC PANEL Lab Routine High total serum IgM Expected: 07/15/2022 (Approximate), Expires: 05/20/2023[facility] Work Phone: Comment on above:Expected: 07/15/2022 (Approximate), Expires: 05/20/2023Start: 07-15-2022 End: 39-85-5535VPVWG/FARMER,FREE,SERKAPPA/FARMER,FREE,SER Lab Routine High total serum IgM Expected: 07/15/2022 (Approximate), Expires: 09/14/2022[facility] Work Phone: Comment on above:Expected: 07/15/2022 (Approximate), Expires: 09/14/2022Start: 07-15-2022 End: 88-87-0775Pmtuziz dehydrogenase [Enzymatic activity/volume] in Serum or PlasmaLD LACTATE DEHYDRO Lab Routine High total serum IgM Expected: 07/15/2022 (Approximate), Expires: 05/20/2023[facility] Work Phone: Comment on above:Expected: 07/15/2022 (Approximate), Expires: 05/20/2023Start: 07-15-2022 End: 84-70-2958YCNZMZOOXU PROTEIN, SERUM (BLOOD)MONOCLONAL PROTEIN, SERUM (BLOOD) Lab Routine High total serum IgM Expected: 07/15/2022 (Approximate), Expires: 05/20/2023[facility] Work Phone: Comment on above:Expected: 07/15/2022 (Approximate), Expires: 05/20/2023Start: 07-15-2022 End: 33-37-1266Mkkhnzcoo [Mass/volume] in Serum or PlasmaPHOSPHORUS INORGANIC Lab Routine High total serum IgM Expected: 07/15/2022 (Approximate), Expires: 1 07/21/2022[facility] Work Phone: Comment on above:Expected: 07/15/2022 (Approximate), Expires: 05/20/2023Start: 07-15-2022 End: 89-75-5929WTSLJYJ ELECTROPHORESIS SERUM W/INTERPPROTEIN ELECTROPHORESIS SERUM W/INTERP Lab Routine High total serum IgM Expected: 07/15/2022 (Approx imate), Expires: 05/20/2023[facility] Work Phone: Comment on above:Expected: 07/15/2022 (Approximate), Expires: 05/20/2023Start: 07-15-2022 End: 25-12-8021Gronl [Mass/volume] in Serum or PlasmaURIC ACID BLOOD Lab Routine High total serum IgM Expected: 07/15/2022 (Approximate), Expires: 05/20/[address] [facility] Work Phone: Comment on above:Expected: 07/15/2022 (Approximate), Expires: 05/20/2023Start: 06-05-2022 End: 833557-zekneaqnwqqeqk D3 [Mass/volume] in Serum or PlasmaVITAMIN D 25 HYDROXY Lab Routine Vitamin D deficiency Expected: 06/05/2022 (Approximate), Expires: 03/05/2023[facility] Work Phone: Comment on above:Expected: 06/05/2022 (Approximate), Expires: 03/05/2023Start: 06-05-2022 End: 03-05-2023 reactive protein [Mass/volume] in Serum or PlasmaC-REACTIVE PROTEIN (CRP) Lab Routine Elevated sed rate Elevated C-reactive protein (CRP) Expected: 06/05/2022 (Approximate), Expires: 03/05/2023[facility] Work Phone: Comment on above:Expected: 06/05/2022 (Approximate), Expires: 03/05/2023Start: 06-05-2022 End: 97-87-1099Clhynnziq (Vitamin B12) [Mass/volume] in Serum or PlasmaVITAMIN B12 BLOOD Lab Routine Vitamin B12 deficiency Expected: 06/05/2022 (Approximate), Expires: 03/05/2023[facility] Work Phone: Comment on above:Expected: 06/05/2022 (Approximate), Expires: 03/05/2023Start: 06-05-2022 End: 03-05-9311Fxtvdiwukks sedimentation rateSED RATE WESTERGREN Lab Routine Elevated sed rate Elevated C-reactive protein (CRP) Expected: 06/05/2022 (Approximate), Expires: 03/05/2023[facility] Work Phone: Comment on above:Expected: 06/05/2022 (Approximate), Expires: 03/05/2023Start: 05-06-2022 End: 87-23-9987Jalg-2-Microglobulin [Mass/volume] in Serum or PlasmaB2 MICROGLOBULIN B Lab Routine Megaloblastic anemia due to vitamin B12 deficiency High total serum IgM Expected: 05/06/2022 (Approximate), Expires: 03/18/[address] [facility] Work Phone: Comment on above:Expected: 05/06/2022 (Approximate), Expires: 03/18/2023Start: 05-06-2022 End: 71-85-9912Bnywkcm.ionized [Moles/volume] in BloodCALCIUM IONIZED BLOOD Lab Routine Megaloblastic anemia due to vitamin B12 deficiency High total serum IgM Expected: 05/06/2022 (Approximate), Expires: 03/18/2023[facility] Work Phone: Comment on above:Expected: 05/06/2022 (Approximate), Expires: 03/18/2023Start: 05-06-2022 End: 66-89-6690DLI W Auto Differential panel - BloodCBC + DIFF Lab Routine Megaloblastic anemia due to vitamin B12 deficiency High total serum IgM Expec zabrina: 05/06/2022 (Approximate), Expires: 03/18/2023[facility] Work Phone: Comment on above:Expected: 05/06/2022 (Approximate), Expires: 03/18/2023Start: 05-06-2022 End: 00-78-8489Labgstkbsuoyv metabolic 2000 panel - Serum or PlasmaCOMP METABOLIC PANEL Lab Routine Megaloblastic anemia due to vitamin B12 deficiency High total serum IgM Expected: 05/06/2022 (Approximate), Expires: 03/18/[address] [facility] Work Phone: Comment on above:Expected: 05/06/2022 (Approximate), Expires: 03/18/2023Start: 05-06-2022 End: 21-35-5656Ygzhahzu [Mass/volume] in Serum or PlasmaFERRITIN BLD Lab Routine Megaloblastic anemia due to vitamin B12 deficiency High total serum IgM Exp ected: 05/06/2022 (Approximate), Expires: 03/18/2023[facility] Work Phone: Comment on above:Expected: 05/06/2022 (Approximate), Expires: 03/18/2023Start: 05-06-2022 End: 14-64-2485Myqu and Iron binding capacity panel - Serum or PlasmaIRON + TIBC Lab Routine Megaloblastic anemia due to vitamin B12 deficiency High total serum IgM Expected: 05/06/2022 (Approximate), Expires: 03/18/2023[facility] Work Phone: Comment on above:Expected: 05/06/2022 (Approximate), Expires: 03/18/2023Start: 05-06-2022 End: 38-02-7397Qriipyx dehydrogenase [Enzymatic activity/volume] in Serum or PlasmaLD LACTATE DEHYDRO Lab Routine Megaloblastic anemia due to vitamin B12 deficiency High total serum IgM Expected: 05/06/2022 (Approximate), Expires: 03/18/2023[facility] Work Phone: Comment on above:Expected: 05/06/2022 (Approximate), Expires: 03/18/2023Start: 05-06-2022 End: 47-55-1106TSUHSVKNUU PROTEIN, SERUM (BLOOD)MONOCLONAL PROTEIN, SERUM (BLOOD) Lab Routine Megaloblastic anemia due to vitamin B12 deficiency High total serum IgM Expected: 05/06/2022 (Approximate), Expires: 03/18/2023[facility] Work Phone: Comment on above:Expected: 05/06/2022 (Approximate), Expires: 03/18/2023Start: 05-06-2022 End: 11-96-2525Yrrmniejn [Mass/volume] in Serum or PlasmaPHOSPHORUS INORGANIC Lab Routine Megaloblastic anemia due to vitamin B12 deficiency High total serum IgM Expected: 05/06/2022 (Approximate), Expires: 03/18/2023[facility] Work Phone: Comment on above:Expected: 05/06/2022 (Approximate), Expires: 03/18/2023Start: 05-06-2022 End: 31-91-3629MENXPUG ELECTROPHORESIS SERUM W/INTERPPROTEIN ELECTROPHORESIS SERUM W/INTERP Lab Routine Megaloblastic anemia due to vitamin B12 deficiency High total serum IgM Expected: 05/06/2022 (Approximate), Expires: 03/18/[address] [facility] Work Phone: Comment on above:Expected: 05/06/2022 (Approximate), Expires: 03/18/2023Start: 05-06-2022 End: 01-28-7138Nvmlo [Mass/volume] in Serum or PlasmaURIC ACID BLOOD Lab Routine Megaloblastic anemia due to vitamin B12 deficiency High total serum IgM Expected: 05/06/2022 (Approximate), Expires: 03/18/2023[facility] Work Phone: Comment on above:Expected: 05/06/2022 (Approximate), Expires: 03/18/2023Start: 63-86-9882ZATRH-19 VACCINE (5 - Pfizer risk series) COVID-19 VACCINE (5 - Pfizer risk series)[facility]22 End: 11-00-3821Nmavcxqyyd A1c in BloodHGB A1C Lab Routine Elevated glucose Expected: 03/09/2022, Expires: 05/09/2022[facility] Work Phone: comment on above:Expected: 03/09/2022, Expires: 05/09/2022tart: 02-24-2022 End: 95-16-1576HMBKAGVFZP AB PANELBARTONELLA AB PANEL Lab Routine Swelling of lymph nodes Expected: 02/24/2022, Expires: 04/26/2022[facility] Work Phone: comment on above:Expected: 02/24/2022, Expires: 04/26/2022tart: 02-24-2022 End: 07-44-2388NCTEYHKW AB TOTALBRUCELLA AB TOTAL Lab Routine Swelling of lymph nodes Expected: 02/24/2022, Expires: 04/26/2022[facility] Work Phone: comlmru on above:Expected: 02/24/2022, Expires: 04/26/2022tart: 02-24-2022 End: 60-79-3414Bcadqczsasyh sp Ag [Presence] in Unspecified specimen by Latex agglutinationCRYPTOCOCCUS AG DET Microbiology Routine Swelling of lymph nodes Expected: 02/24/2022, Expires: 04/26/2022[facility] Work Phone: comment on above:Expected: 02/24/2022, Expires: 04/26/2022tart: 02-24-2022 End: 77-00-1935SCIYKFHYENC AG URINEHISTOPLASMA AG URINE Lab Routine Swelling of lymph nodes Expected: 02/24/2022, Expires: 04/26/2022[facility] Work Phone: comddce on above:Expected: 02/24/2022, Expires: 04/26/2022tart: 02-24-2022 End: 96-85-7658TUG 1 RNA [#/volume] (viral load) in Serum or Plasma by YESSI with probe detectionHIV RNA VIRAL LOAD Lab Routine Swelling of lymph nodes Expected: 02/24/2022, Expires: 04/26/2022[facility] Work Phone: comment on above:Expected: 02/24/2022, Expires: 04/26/2022tart: 02-24-2022 End: 93-48-7199CYSMXFMA TOTAL W/REFLEXSYPHILIS TOTAL W/REFLEX Lab Routine Swelling of lymph nodes Expected: 02/24/2022, Expires: 04/26/2022[facility] Work Phone: comment on above:Expected: 02/24/2022, Expires: 04/26/2022tart: 79-44-1118Qpcwnupvi vaccinationMount Carmel Health Systemtart: 62-96-9105ALUZJ-19 VACCINE (4 - Booster for Pfizer series)COVID-19 VACCINE (4 - Booster for Pfizer series)[facility]: 33-78-4134Tszyatsls vaccination Flu vaccine (Season Ended)[facility] Work Phone: start: 03-26-0156Awfcf panelGuernsey Memorial Hospitaltart: 50-08-8927KscbbpcftuoSdpzhbyge ClinicStart: 59-89-5728Owcdueihq for malignant neoplasm of breastMount Carmel Health Systemtart: 00-39-0717YES TESTINGHPV TESTING [facility]: 48-17-7818Pxhpxqpyt for malignant neoplasm of cervix [facility]: 16-50-6147LUS VACCINE (1 - 3-dose SCDM series)HPV VACCINE (1 - 3-dose SCDM series)[facility]: 38-59-1217OPW Vaccine (1 - Risk 3-dose SCDM series)HPV Vaccine (1 - Risk 3-dose SCDM series)[facility]: 72-22-8048XVY Vaccines (1 - 3-dose SCDM series)HPV Vaccines (1 - 3- dose SCDM series)[facility]Start: 61-50-2420YFwA/Tdap/Td Vaccines (1 - Tdap)DTaP/Tdap/Td Vaccines (1 - Tdap)[facility]Start: 71-86-7751BMU TESTINGPAP TESTINGMount Carmel Health Systemtart: 36-19-9463Mrsqgnhai for malignant neoplasm of cervixMount Carmel Health Systemtart: 40-69-9745BHfJ,Tdap and Td Vaccines (1 - Tdap)DTaP,Tdap and Td Vaccines (1 - Tdap)[facility] Start: 36-91-1097DHkL/Tdap/Td vaccine (1 - Tdap)DTaP/Tdap/Td vaccine (1 - Tdap) [facility] Work Phone: start: 52-95-1312Xlhehbpub B vaccinationHEP B VACCINE (1 of 3 - 19+ 3-dose series)[facility]: 32-71-0362Fnvfbiela B Vaccine (1 of 3 - 19+ 3-dose series)Hepatitis B Vaccine (1 of 3 - 19+ 3-dose series)[facility]: 92-17-0042Ehhupoywz B Vaccines (1 of 3 - 19+ 3- dose series)Hepatitis B Vaccines (1 of 3 - 19+ 3-dose series)[facility]: 19-44-1882Bidduibbycmd vaccinationPneumococcal Vaccine (1 of 2 - PCV)[facility]: 95-30-2433Crutgtmmqpon Vaccine: Pediatrics and At-Risk Adult Patients (1 of 2 - PCV)Pneumococcal Vaccine: Pediatrics and At-Risk Adult Patients (1 of 2 - PCV)[facility] HospitalSt[facility]: 16-23-5033XPSBZOVZ VACCINE (1 of 2)SHINGRIX VACCINE (1 of 2) [facility]: 37-49-2667Oeidc diphtheria, tetanus and acellular pertussis (DTaP) vaccinationTDAP (ADULT)[facility]: 10-05-1999 Urine microalbumin profileMount Carmel Health Systemtart: 10-30-6828Sabmwy Vaccines (1 of 2)Zoster Vaccines (1 of 2)[facility] HospitalStart: 1998 Adult BMI Follow Up PlanAdult BMI Follow Up PlanUNC Healthtart: 52-00-2063Dwtue BMI ScreeningAdult BMI ScreeningUNC Healthtart: 79-08-1392Owumxht ScreeningAnxiety ScreeningMount Carmel Health Systemtart: 1998 Hepatitis C screeningHepatitis C ScreeningWVUMedicine [facility] Hospital Start: 28-77-3656JUA SCREENINGHIV SCREENINGMount Carmel Health Systemtart: 38-61-8319JTG screeningHIV ScreeningMount Carmel Health Systemtart: 03-95-9034YSH screeningGuernsey Memorial Hospitaltart: 70-13-8161Udpcncs of varicella vaccinationVaricella Vaccines (1 of 2 - 13+ 2-dose series)[facility] HospitalStart: 50-38-3271Xtebjscrc vaccination Varicella Vaccines (1 of 2 - 13+ 2-dose series)[facility] Start: 30-50-7262LAUEQ-19 Vaccine (1)COVID-19 Vaccine (1)[employer] Phone: start: 22-73-3729Ljkwhczcrc ScreeningDepression ScreeningUNC Healthtart: 64-04-5320Srphlye ScreeningTobacco ScreeningUNC Healthtart: 69-39-2958Rzhnqpnlr for malignant neoplasm of cervixCervical Cancer ScreeningMount Carmel Health Systemtart: 10-05-1987 DTaP/Tdap/Td Vaccines (1 - Tdap)DTaP/Tdap/Td Vaccines (1 - Tdap)[facility] Start: 12-32-2709LOPWQQMYOJXO (1 - PCV)PNEUMOCOCCAL (1 - PCV)[facility] Start: 86-96-4648Tpryevympmnn vaccinationMount Carmel Health Systemtart: 1986 Pneumococcal Vaccine: Pediatrics (0 to 5 Years) and At-Risk Patients (6 to 64 Years) (1 - PCV)Pneumococcal Vaccine: Pediatrics (0 to 5 Years) and At-Risk Patients (6 to 64 Years) (1 - PCV)[facility]: 80-09-4065DZE Vaccines (1 of 1 - Standard series)MMR Vaccines (1 of 1 - Standard series)[facility]: 67-51-4609Xamkngpkl vaccination Varicella Vaccines (1 of 2 - 2-dose childhood series)[facility]: 94-77-1174Xbzkyohxw vaccine (1 of 2 - 2-dose childhood series) Varicella vaccine (1 of 2 - 2-dose childhood series)[employer] Phone: start: 38-92-3249VGTZSELUB B (1 of 3 - 3-dose series) HEPATITIS B (1 of 3 - 3-dose series)[facility]: 79-29-3829Sxlwsipnc B Vaccine (1 of 3 - 3-dose series)Hepatitis B Vaccine (1 of 3 - 3-dose series) [facility]: 08-67-2431Jqxlozgdq B Vaccines (1 of 3 - 3-dose series) Hepatitis B Vaccines (1 of 3 - 3-dose series)[facility] Start: 91-22-7619Scnuqibkw C screeningGuernsey Memorial Hospitaltart: 71-26-0031FDL screeningHIV ScreeningWVUMedicine Harrison Community HospitalStart: 20-02-1618UVI Vaccine: Recommended Based On RiskHPV Vaccine: Recommended Based On Risk [facility]: 94-86-0288Umsmi panelLipid PanelUnMercy Health Anderson HospitalStart: 51-88-5702Buvchvhaj for osteoporosisBone Density ScanCincinnati Children's Hospital [facility]: 13-07-5925Wgiguaj vaccinationTETANUSAOur Lady of Mercy Hospital SystemStart: 21-64-2806Ngmvdlp CounselingTobacco CounselingProTwin City Hospital SystemStart: 57-04-7180Thxyzs Adult PhysicalYearly Adult PhysicalUnMercy Health Anderson Hospital25-hydroxyvitamin D3 [Mass/volume] in Serum or Plasma VITAMIN D 25 HYDROXY Lab Routine Vitamin D deficiency 01/11/2025 1:48 PM EDT [facility]EROBIC CULTUREAEROBIC CULTURE Lab Routine 03/02/2025 5:17 PM [facility] Work Phone: ANAEROBIC CULTUREANAEROBIC CULTURE Lab Routine 03/02/2025 5:17 PM EDMillie E. Hale HospitalBacteria identified in Unspecified specimen by Aerobe cultureThe Bellevue HospitalBacteria identified in Unspecified specimen by Anaerobe cultureThe Bellevue HospitalBLOOD TB SCREENBLOOD TB SCREEN Lab Routine Screening-pulmonary TB 01/11/2025 1:48 PM EDTCleveland ClinicC reactive protein [Mass/volume] in Serum or PlasmaC-REACTIVE PROTEIN Lab Routine Elevated sed rate Elevated C-reactive protein (CRP) 01/11/2025 1:48 PM EDTCleveland ClinicCardiovascular function eval w/tilt table w/mntrTILT TABLE EVALUATION Cardiology Routine POTS (postural orthostatic tachycardia syndrome) Ordered: [facility]and [facility] Work Phone: comment on above:Ordered: 10/17/2022CBC W Auto Differential panel - BloodCBC and differential Lab Routine Menorrhagia with regular cycle Ordered: 03/23/2024[facility] Work Phone: comment on above:Ordered: 03/23/2024hronic hepatitis differentiation between hepatitis B and C virus panel - Serum or PlasmaHEP REMOTE PANEL BL Lab Routine Elevated LFTs 01/11/2025 1:48 PM [facility]TC[facility] Cobalamin (Vitamin B12) [Mass/volume] in Serum or PlasmaVITAMIN B12 Lab Routine Vitamin B12 deficiency 01/11/2025 1:48 PM EDTCOhio Valley Surgical HospitalCT Abdomen W contrast [facility] End: 42-04-0713BAN-AXIAL SKELETONDXA-AXIAL SKELETON Radiology Routine Steroid- induced osteoporosis 1 Occurrences starting 02/04/2023until 03/05/2024[facility] Work Phone: Comment on above:1 Occurrences starting 02/04/2023 until 03/05/2024 End: 21-06-2716NQJ-FOREARM SKELETONDXA-FOREARM SKELETON Radiology Routine Steroid-induced osteoporosis 1 Occurrences starting 02/04/2023 until 03/05/[address] [facility] Work Phone: Comment on above:1 Occurrences starting 02/04/2023 until 03/05/2024ECG 12 LeadECG 12 Lead ECG Routine Irregular heart rate 06/09/2023 8:28 AM [facility] Work Phone: Erythrocyte sedimentation rateSEDIMENTATION RATE, WESTERGREN Lab Routine Elevated sed rate Elevated C-reactive protein (CRP) 01/11 1:48 PM [facility] Work Phone: hCG, quantitative, pregnancyhCG, quantitative, Lab Routine Menorrhagia with regular cycle Ordered: 03/23/2024[facility] HealthcareComment on above:Ordered: 03/23/2024Hemoglobin A1c/Hemoglobin.total in BloodHemoglobin A1c Lab Routine Menorrhagia with regular cycle Ordered: 03/23/2024[facility] HealthcareComment on above:Ordered: 03/23/2024Hepatitis B [...] Elevated LFTs 01/11/2025 1:48 PM EDTCleveland Clinic End: 87-63-2097AXOK SLEEP APNEA TEST (HSAT)HOME SLEEP APNEA TEST (HSAT) Procedures Routine Somnolence, daytime Snoring 1 Occurrences starting 03/09/2022 until 03/09/2023[facility] Work Phone: comment on above:1 Occurrences starting 03/09/2022 until 03/09/2023HYDROGEN BREATH TEST B/OHYDROGEN BREATH TEST B/O Procedures Routine Diarrhea, unspecified type Abdominal pressure Ordered: 06/14/2024[facility] Work Phone: comment on above:Ordered: 06/14/2024Oxygen therapy [Minimum Data Set]Initiate Oxygen Therapy Protocol Respiratory Care Routine Daily until discontinued starting 10/07/2020[facility] Work Phone: comment on above:Daily until discontinued starting 10/07/2020atient EducationUniversity [facility] Work Phone: Patient referralUniversity Hospitals Tripoint [facility] Work Phone: End: 25-29-4535GcscwlknlwuloBVDLVXAFRCIWB (PSG) Procedures Routine Somnolence, daytime Snoring 1 Occurrences starting 03/04/2022 until 3C[facility] Work Phone: Comment on above:1 Occurrences starting 03/04/2022 until 3Prothrombin time (PT) in Blood by Coagulation assayProtime-INR Lab Routine Menorrhagia with regular cycle Ordered: 03/23/2024[facility] Comment on above:Ordered: 03/23/2024THIN PREP TIS PAP AND HR HPV DNATHIN PREP TIS PAP AND HR HPV DNA Pathology and Cytology Routine Well woman exam with routine gynecological exam Ordered: 06/06/2024[facility] HealthcareComment on above: Ordered: 06/06/2024Thyrotropin [Units/volume] in Serum or PlasmaTSH Lab Routine Menorrhagia with regular cycle Ordered: 03/23/2024[facility] HealthcareComment on above:Ordered: 03/23/2024Thyroxine (T4) free [Mass/volume] in Serum or PlasmaT4, free Lab Routine Menorrhagia with regular cycle Ordered: 03/23/2024[facility] HealthcareComment on above:Ordered: 03/23/2024XR Thoracic spine [address] [facility] Immunizations Immunization DateImmunizationNotesCare VggieyebFsuuuaaz64-90-8589TYMCQ-50 vaccine, age 12+ yr, season (PFIZER-BIONTLaser View)Lynne Ni MD Work Phone: [facility] HospitalJqtbtm45-95-1910JGKWM-65 mRNA Bivalent Booster (Pfizer)Gay De La Torre HATCHERY SUPERVISOR-C Work Phone: [facility]01-03-2022COVID-19 mRNA, Comirnaty (Pfizer)Gay De La Torre HATCHERY SUPERVISOR-C Work Phone: [facility]05-29-2021COVID-19 mRNA, Comirnaty (Pfizer)Gay De La Torre HATCHERY SUPERVISOR-C Work Phone: [facility]05-08-2021COVID-19 mRNA, Comirnaty (Pfizer)Gay De La Torre HATCHERY SUPERVISOR-C Work Phone: [facility] Payers DatePayer CategoryPayerPolicy [id number] [facility] [id number] 2017Medicaid (Managed Care) [id number] [facility] MEDICAID Member Subscriber Plan / Payer (Effective 2017-Present) Name: Ariadna Haley Relation to Subscriber: Self Name: Ariadna Haley Payer ID: Not on file Group ID: [id number] Type: Not on file Address: [address] [place] [id number] [facility] [id number] 2017-Present [address] [place] [id number] 2010MedicaidCARESOURCEidCARESOURCE MEDICAID CARESOURCE MEDICAID [id number] 2009-Present [phone] [address] [place] [address] [id number] 2010Medicaid [id number] 2.16.840.1.863097.3.57[id number] 2.16840.1.081171.3.57[id number] 2.16840.1.623755.3.57[id number] 2.16840.1.772167.3.57[id number] 2.16840.1.437675.3.57[id number] 2.16840.1.121272.3.57[id number] 2.840.1.772816.3.57[id number] 2.16840.1.471567.3.57[id number] 2.16840.1.564467.3.57[id number] 2.16840.1.588721.3.57[id number] 2.16840.1.841992.3.579.[id number] 2.16840.1.586781.3.57[id number] 2.16840.1.750066.3.579.2.0[id number] 2.0.1.655260.3.579.[id number] 2.16840.1.872960.3.579.2.51168-65-7391Lxaqglx76261104 2.0.1.860278.3.579.2.650971-26-9937Rrlnrfc28881285 2.0.1.179627.3.579.2.[id number] 2..1.898553.3.579.2.864966-53-7563Ornojfd33847196 2..1.674983.3.579.2.442467-31-5524Dvkzqby94436670 2..1.257832.3.579.2.171319-76-8011Xqjmmqs5930766 2..1.583393.3.579.2.042691-56-0836Umidmgg0499602 2..1.663432.3.579.2.464341-46-7118Sravglr6229278 2..1.463925.3.579.2.914781-76-1616Gxsvokp3497523 2..1.474564.3.579.2.506794-88-8764Ycyzwcf5539961 2..1.733452.3.579.2.132213-77-7303Ffzrxfn0571012093729-54-5346Uhbgaym [id number] 2.0.1.667556.3.579.2.161Ssptxlf31591589 2.0.1.687114.3.579.2.390Vxcpzvp30321973 2.16.840.1.336528.3.579.2.531 [id number] 2.16.840.1.750550.3.579.2.960Rfrfrjx81345450 2.16.840.1.540394.3.579.2.436Sddyzsb28465643 2.16.840.1.934503.3.579.2.531 Bsgacxw13686616 2.16.840.1.536166.3.579.2.531 Social History DateTypeDetailFacilityStart: 05-24-1995 End: 12-21-9490Trhvylj smoking status NHISCurrent every day smokerMount Carmel Health Systemtart: 10-07-2020 End: 06-67-1569Gcghbuh use and exposureNever usedElyria Memorial HospitalStart: 10-07-2020 End: 02-10-2502Qarwkrv intakeLifetime non-drinker (finding)[facility] [employer] Phone: start: 78-59-1848Yhgrhcd SDOH Alcohol Htmsqdjzo6Ctidd Health Work Phone: start: 98-58-4572Cbb Assigned At BirthNot on [facility] Phone: start: 02-22-2022 End: 54-55-7218Zxtdgrhq to SARS-CoV-2 (event)Not sureElyria Memorial HospitalStart: 98-75-3665Cuwgnpu of tobacco useCigarette SmokerMount Carmel Health Systemtart: 05-31-2014 End: 92-29-4111Vkrhcowbbn smoked current (pack per day) - Rjhxccrx8Yigyqeubq ClinicStart: 10-24-2021 End: 73-00-0193Owjfvvg intakeCurrent non-drinker of alcohol (finding)[facility] Systemtart: 10-14-2021 End: 40-38-5455Axigpipi to SARS-CoV-2 (event)Unable to assessDetwiler Memorial Hospital Start: 10-22-2022 End: 86-06-3491Nma Assigned At BirthMount Carmel Health Systemtart: 05-31-2014 End: 81-56-9298Nygxm Depression Screening Rnaijzkxar9Uljvoizov ClinicStart: 57-80-1992Ttyzlja CommentCurrent smoker, everyday, 11-20 cigarettes/dayNODE HealthcareStart: 54-44-2678Eapxnhd CommentCaffeine intake : > 4 cups per dayNODE HealthcareStart: 08-19-2016 End: 12-70-4097Zvmxfmp smoking status NHISSmoker (finding)[facility] Centertart: 28-48-0589Blc Assigned At [facility]tart: 07-02-2016 End: 00-05-3060ZsvMwmvbl (finding)[facility] [employer] [facility] Healthtart: 39-84-6344Hqnbyp identityIdentifies as female gender (finding)[facility] Goals DatePatient GoalDesired Activity/State Functional Status NnbnMlkwjuanouApjdbfKmtasxcg96-75-4930Ysk you deaf, or do you have serious difficulty hearingNo 12/25/2014 11:14 AM Chichi Womack Ma [facility] SystemHuclgn22-78-3569Hhb you blind, or do you have serious difficulty seeing, even when wearing glassesNo 12/25/2014 11:14 AM Chichi Womack Ma [facility]08-04-2015Do you have serious difficulty walking or climbing stairsYes 12/25/2014 11:14 AM Chichi Womack [facility]08-04-2015Do you have difficulty dressing or bathingYes 12/25/2014 11:14 AM Chichi Womack Ma [facility] ClinicWdhktj49-54-5002Molifsh of a physical, mental, or emotional condition, do you have difficulty doing errands alone such as visiting a physician's office or shoppingNo 12/25/2014 11:14 AM Chichi Womack Ma [facility] Mental Status PoaqGmffcsrpdfBdfxkcBdfklwux90-17-5761Yaqwcdn of a physical, mental, or emotional condition, do you have serious difficulty concentrating, remembering, or making decisionsNo 12/25/2014 11:14 AM Chichi Womack Ma [facility] Clinical Notes 05-31-2014 to 03-23-2025 Note Date & TimvFvkjVzjlaasi13-59-4305 History of Present illness Narrative* Terence Pacheco MD - 03/23/2025 9:45 AM [...] abscess. She is going to see her fruit stuffer regarding this. If the patient does require surgical procedure for this, she can contact us. No evidence of infection from her pilonidal incision and drainage site. She does not require prolonged antibiotics for this. Next appointment: 04/09/2025 documented in this encounterGolden Valley Memorial HospitalOsjzhdgcfw35-19-2668 NoteWhite Hospital10-22-2025 History of Present illness Narrative* Stacy Boyer - 03/14/2025 12:00 PM EDT [...] with abscess/Referralfrom Dr. Gay De La Torre- [facility]. 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 Ongoing [...] hydroxychloroquine, steroids pred 10 mg po daily ([facility]) Hx of 12/2024: Tb and HBV [...] Insecurity: No Food Insecurity (04/06/2024) Received from [employer] [facility] Hunger Screening Within the past [...] Personal Safety: Unknown (07/15/2023) Received from [facility] [employer] [...] - Patient has follow up by Rheumat[facility] in his on prednisone, hydroxychloroquine and Benlysta Opportunistic infection screening - Patient did have hepatitis-C, hepatitis-B and TB testing. Would recommend routine checking through her pantograph transferrer History of low IVIG - Follow up [...] required an extensive review of her history yeag-kx-qrgo aswell as through available records although further records are needed. Thank you for this consultation. Please note Portions of this note utilized Stratio dictation software, please excuse any typographical or [...] daily., Disp: , Rfl: Ergocalciferol 1.25 MG (17931 UT) capsule, Take 1 capsule by mouth [...] 2 times daily., Disp: , Rfl: Nystatin 035758 UNIT/ML oral suspension, Swish and spit 4 [...] Other., Disp: , Rfl: documented in this [facility]10-08-2025 History of Present illness Narrative* Terence Pacheco MD - 02/28/2025 9:30 AM EDT Images from the original note were not included. Ariadna Haley 1980 Ariadna B Tera is a 44 y.o. female presents with [...] and also on prednisone. She follows with [facility] rheumatology and also with [facility] sawyer tology/oncology. She states she does [...] Chronic laryngopharyngitis COVID-19 vaccine administered x 2 ([employer]) Difficulty walking Fatigue Fibromyalgia, primary GERD (gastroesophageal [...] her dressing changes at documented in this encounterGolden Valley Memorial HospitalHjwwlupzxs15-13-0247 NoteWhite Hospital10-01-2025 NoteWhite Hospital09-24-2025 History of Present illness Narrative* Bernabe [...] was obtained from the patient/parent. Method: See [facility] for details on administration. [...] Next Visit: as scheduled documented in this encounterGolden Valley Memorial HospitalXzcfgleoej85-51-5020 NoteWhite Hospital09-03-2025 History of Present illness Narrative* Elena Alfonso RN - 01/24/2025 3:40 PM EDT Pt did not receive B12 injection today. Pt called & agreeable to receive it when she returns in2 weeks for her Benlysta infusion. Pharmacy aware and moving date. Elena Alfonso, RN documented in this encounterDetwiler Memorial Hospital08-28-2025 Telephone encounter Note * Telephone Encounter - Merry Chairez RN - 01/18/2025 5:09 PM EDT MC message read by patient . [facility]08-28-2025 Miscellaneous Notes* Telephone Encounter - Merry [...] IV, start prior authorization documented in this encounterDetwiler Memorial Hospital08-28-2025 Telephone encounter Note * Telephone Encounter [...] sq benlysta to IV, start prior authorization [facility]08-27-2025 Chief complaint+Reason for visit Narrative* Chief [...] :50am Sacroiliitis March 13, 2025 8 :50am [facility] Work Phone: 1(363) 928-421208-27-2025 Evaluation note* Diagnosis Onset Date Resolution Status Admit Date Lumbosacral spondylosis acuteAugust 2024 10:29amOther chronic painacuteAugust 2024 10:29am SacroiliitisacuteAugust 2024 10:29amLumbosacral spondylosisacuteSeptember 2024 9:23amMid back painacuteSeptember 2024 9:23amOther chronic pain acuteSeptember 2024 9:23amSacroiliitisacuteSeptember 2024 9:23am Abdominal pressureacuteOctober 2024 1:29pmDyspepsiaacuteOctober 2024 1:29pmFatty liveracuteOctober 2024 1:29pmGERD (gastroesophageal reflux disease)acuteOctober 2024 1:29pmLumbosacral spondylosisacuteOctober 2024 8:50amOther chronic painacuteOctober 2024 8:50amSacroiliitisacute March 13, 2025 8:50am [facility] Work Phone: 1(873) 170-250007-24-2025 NoteHNO ID: [id number] Author: JHONATHAN CONDE RN Service: ? Author Type: Registered Nurse Type: Progress Notes Filed: 12/14/2024 16:36 Note Text: Ran over 2 hours per patient request.[facility]07-24-2025 History of Present illness Narrative* Jhonathan Conde RN - 12/14/2024 3:58 PM EDT Ran over 2 hours per patient request. documented in this encounterDetwiler Memorial Hospital07-24-2025 NoteWhite Hospital07-24-2025 History of Present illness Narrative* Ama Esparza - 12/14/2024 11:03 AM EDT CMN RECEIVED BY [employer] VIA FAX, COMPLETED, AND PLACED IN PROVIDER MAILBOX FOR SIGNATURE Ama Esparza Cardiology Associate II [employer] SENDING CMN: Josh SIGNED AND DATED CMN, FAXED TO DME & CONFIRMATION PAGE RECEIVED: 12.14.2024 documented in this encounterDetwiler Memorial Hospital07-22-2025 Evaluation note* Diagnosis Onset Date Resolution [...] 2024 1:29pmGERD (gastroesophageal reflux disease)acuteOctober 2024 1:29pm [facility] Work Phone: 1(581) 128-943507-10-2025 Evaluation note* Diagnosis Onset Date Resolution Status [...] painacuteSeptember 2024 9:23amSacroiliitisacute February 14, 2025 9:23am [facility] Work Phone: 1(595) 791-446107-10-2025 Telephone encounter Note* Telephone Encounter - Enma Hamm RN - 11/30/2024 8:36 AM EDT Pt updated on results. Will continue with IVIG, as previously scheduled. Denied further needs or concerns at this time. Enma Hamm RN [facility]07-10-2025 Miscellaneous Notes* Telephone Encounter - Enma Hamm RN - 11/30/2024 8:36 AM EDT Pt updated on results. Will continue with IVIG, as previously scheduled. Denied further needs or concerns at this time. Enma Hamm RN documented in this encounterDetwiler Memorial Hospital07-09-2025 NoteWhite Hospital07-09-2025 History of Present illness Narrative* Vaibhav Carvalho APRN.CNP - 11/29/2024 8:43 AM EDT Images from the original note were not included. NAME: Ariadna Haley [facility] NO.: [id number] DATE OF SERVICE: .November 29, 2024 (Deven) [...] to monitor; no current intervention required per [facility] recommendations. 7. Pre-diabetes (R73.03) Borderline [...] requiring a recent corticosteroid injection by her air traffic control specialist center. She experiences intermittent fatigue, shortness of breath, [...] injections. Shefollows with multiple doctors including and leader writer, pantograph transferrer, air traffic control specialist center and PCP. She has been told they [...] subcutaneously one time a week. Per PCP jktsgklasqOPGLA-ikurfp-fsvhpmfgy (BMX 1:1:1) 1:1:1 liqd Take 5 mL [...] (Crohn's [Other]) Mother . Vaibhav Carvalho APRN, HATCHERY SUPERVISOR-C, [facility] Provided at: [place], [place] CC: Manuel Ferris MD [address] [address] documented in this encounterDetwiler Memorial Hospital07-03-2025 History of Present illness Narrative* [...] treatment with ILK today. ILK today, see [facility] for details. Consent: The risks and benefits of intralesional kenalog were discussed prior to the procedure. Specifically, the risk of skin atrophy was reviewed. It was also emphasized that multiple treatments may be necessary. Verbal consent was obtained from the patient/parent. Method: See [facility] for details on administration. [...] Next Visit: as scheduled documented in this encounterDeborah [place] [address]Odygnrziou69-92-0113 Telephone encounter Note* Telephone Encounter - Renea Schneider MA - 11/20/2024 12:00 PM EDT Patient coming in for treatment visit Wednesday11/29/24. Please add lab orders. thanks. Renea Schneider MA [facility]06-23-2025 Chief complaint+Reason for visit Narrative* [...] :29am Sacroiliitis January 17, 2025 10 :29am [facility] Work Phone: 1(932) 162-929706-23-2025 Chief complaint+Reason for visit Narrative * Chief [...] :29am Sacroiliitis January 17, 2025 10 :29am [facility] Work Phone: 1(862) 112-634006-23-2025 Evaluation note* Diagnosis Onset Date Resolution Status Admit Date Lumbosacral spondylosis acuteJune 2024 11:15amOther chronic painacuteJune 2024 11:15am SacroiliitisacuteJune 2024 11:15amLumbosacral spondylosisacuteJuly 2024 9:03amOther chronic painacuteJuly 2024 9:03amSacroiliitisacuteJuly 2024 9:03amAbdominal burning sensation in left upper quadrantacuteJuly 2024 10:42amAbdominal massacuteJuly 2024 10:42amAbdominal painacute December 12, 2024 10:42amBloatingacuteJuly 2024 10:42amConstipationacuteJuly 2024 10:42amDyspepsiaacuteJuly 2024 10:42amLumbosacral spondylosis acuteAugust 2024 10:29amOther chronic painacuteAugust 2024 10:29am SacroiliitisacuteAugust 2024 10:29am [facility] Work Phone: 1(719) 833-957605-17-2025 History of Present illness Narrative* Lynne Ni [...] visit. Either the patient or their legal auto claim representative has been informed of the risks [...] easures, may consider osteoporosis treatment if on predatory animal exterminator steroids/abnormal bmd, take vitamin D script [...] neurology/on metoprolol for POTs, avoid aggravating triggers, predatory animal exterminator pain recommendations per primary care provider/pain [...] measures, may consider osteoporosis treatment if on predatory animal exterminator steroids/abnormal bmd, take vitamin D script [...] neurology/on metoprolol for POTs, avoid aggravating triggers, predatory animal exterminator pain recommendations per primary care provider/pain [...] measures, may consider osteoporosis treatment if on predatory animal exterminator steroids/abnormal bmd, take vitamin D script [...] neurology/on metoprolol for POTs, avoid aggravating triggers, predatory animal exterminator pain recommendations per primary care provider/pain [...] neurology/on metoprolol for POTs, avoid aggravating triggers, mcc pain recommendations per primary care provider/pain clinic/patient [...] Due for eye exam. Labs sent to [facility]/completed in 06/2021 (no results faxed to office, but patient pulled up results on her phone). Chronic current pain in neck, flank area, mid back, knees, legs, arms, all over pain. Better with lyrica 75mg 3times a day. Reports pain 4-8/10. Couple hrs AM stiffness. COVID vaccine [employer] 09/28/20, 10/19/20, 05/26/21. Feels safe at home. [...] pain: yes H/o precedent/frequent infection(s): as above Enthesopathy/[place]'s/heel/plantar tenderness: hands random painful/tingling Skin thickening, psoriasis, [...] COVID-19 original vaccine, age 12+ yr, monovalent ([employer] - PURPLE TOP) 09/28/2020 10/19/2020 05/26/2021 COVID-19 vaccine, age 12+ yr ([employer] COMIRNATY) 02/23/2023 COVID-19 vaccine, age 12+ yr, bivalent ([employer]) 02/08/2022 Pneumovax no Flu shot no Tetanus [...] (33);NL cbc, cmp, negative hla b27; Outside [place] 06/2021 low vitamin D 16, vitamin b12-307;high [...] ures, may consider osteoporosis treatment if on predatory animal exterminator steroids/abnormal bmd, take vitamin D script [...] neurology/on metoprolol for POTs, avoid aggravating triggers, mcc pain recommendations per primary care provider/pain clinic/patient [...] (200mg) daily with a meal Please see joint yarner every 6-12months while on Hydroxychloroquine. reStart azathioprine [...] touching your toes, sit-ups, using row machine mcc pain recommendations per primary care provider/pain clinic [...] video & audio (virtual) or phone or vltm-hu-xcdj patient care, completing clinical documentation, obtaining and/or [...] Workers' Compensation? No Do you need an it senior analyst? No [facility] MYCHART ZOOM MESSAGE Question 10/06/2024 9:06 [...] my health Strongly Agree documented in this encounterDetwiler Memorial Hospital05-17-2025 NoteWhite Hospital05-17-2025 Instructions* Patient Instructions* Lynne Ni MD [...] (200mg) daily with a meal Please see joint yarner every 6-12months while on Hydroxychloroquine. azathioprine daily [...] touching your toes, sit-ups, using row machine predatory animal exterminator pain recommendations per primary care provider/pain [...] your usual activities immediately. documented in this encounterDetwiler [facility] Note * Telephone Encounter - Beatriz Sanchez LPN - 10/06/2024 1:46 PM EDT VM left that below message forwarded to her MC. Requested return call if unable to view message. [facility]05-16-2025 Miscellaneous Notes* Telephone Encounter - [...] accordingly. Lynne Ni MD documented in this encounterDetwiler [facility]05-[facility] Telephone encounter Note * Telephone [...] above. Please process accordingly. Lynne Ni MD [facility]04-30-[facility] History of Present illness Narrative* Deborah Arroyo, [facility] - 09/19/2024 10:00 AM EDT Patient [...] C PAST SURGICAL HISTORY OF 1990s ablation PREVIOUS GENETIC TESTING: None. SOCIAL HISTORY: Lives in [place], [place] with her and daughter. 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 - Partner's ethnicity: not applicable. - No known -Solomon Islander, Mediterranean, /Greenlandic, Niuean-Surinamese/Cajun, or Ashkenazi Pentecostal ancestry unless noted above. - Parental consanguinity: [...] not yet known. After this discussion, Ariadna Torres harikafrancisco javier met with Dr. Lance. Please see [...] via the connective tissue disorder panel at [facility] for Ariadna's daughter. Follow up will [...] greater than 50% of which was spent znmc-yq-nuvf counseling. This plan is being carried out per Dr. Lance's recommendations. Deborah Arroyo, MS, [facility] Licensed Genetic Counselor EPIC CC: Dr. Last Lance CC: Ariadna Haley Via [employer] documented in this encounterDetwiler [facility] Hospital04-29-20[facility]04-29-20[facility]04-29-2025 History of Present illness Narrative* Ny Lance MD - 09/19/2024 7:46 AM EDT Images from the original note were not included. Department of Medical Genetics and Genomics OUTPATIENT NEW VISIT NOTE Recording using Digital Legends software for draft documentation of the visit was discussed with the patient/authorized auto claim representative; all questions welcomed and answered. Patient/authorized auto claim representative agreed to proceed Patient Name: Ariadna [...] has a history of using a palate tellers supervisor. She reports delayed wound healing, possible [...] Gangrene - 02/04/2023 Steroid-Induced Osteoporosis - 02/04/2023 Jewel Stringer Current Use of Systemic Steroids - 02/04/2023 [...] subcutaneously one time a week. Per PCP zgwzdwysudFUSBJ-rezvlo-smfzqfcms (BMX 1:1:1) 1:1:1 liqd Take 5 mL [...] have reviewed [facility] on September 19, 2024 PAST MEDICAL HISTORY [...] OF ablation SOCIAL HISTORY: - Lives in [place], [place] with her and daughters. - Highest level of education: High school. 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 Paternal - . - No known -Solomon Islander, Mediterranean, /Greenlandic, Ashkenazi Pentecostal, Niuean-Surinamese/Cajun, or Maxwell ancestry unless noted above. - [...] pedigree was collected by Deborah Arroyo MS, [facility] at the patient's separate genetic counseling encounter. The pedigree will be scanned into Rise. This information was reviewed with thefamily and [...] For Physiotherapists by Katarina Reza (Eds.), David Becerrilmann, Ho, 2003, ISBN [id number]; Examination and Treatment of a Patient with [...] symptoms when present, recommending follow-up with a boat dispatcher. 2. Chronic pain syndrome (G89.4) Chronic joint [...] 87 minutes was spent with patient for iysj-it-qbhn evaluation, discussion of genetic differential diagnoses, management plan, counseling, chart review, documentation and coordination of care. Portions of family history were obtained by Deborah Arroyo MS, [facility], which were reviewed with family and edited as necessary. All questions were answered to the best of my knowledge. Contact information has been provided to the patient. Ny Lance MD Staff Factory Representative Department of Medical Genetics and Genomics (DMGG) [facility] Appointments: [facility] CC: Deborah Arroyo MS, [facility] Ariadna Haley (via [employer]) [address] [place] [id number] Lynne Ni MD CC to PCP via fax: Manuel Ferris [address] [place] [address] documented in this encounterDetwiler [facility] Hospital04-28-2025 Telephone encounter Note * Telephone Encounter - Lynne Ni MD - 09/18/2024 4:52 PM EDT Notify patient medication sent as requested Thank you. Patient's request for medication is as follows: Requested Prescriptions Pending Prescriptions Disp Refills belimumab (BENLYSTA) 200 mg/mL auto-injector 12 mL 3 Sig: Inject 200mg (1 pen) subcutaneously once weekly Prescription(s) as above. Please process accordingly. Lynne Ni MD [facility]04-28-2025 Miscellaneous Notes* Telephone Encounter - [...] (1 pen) subcutaneously once weekly Patient prefers: [facility] Thank you! Maria Esther Pichardo, PharmD Clinical Pharmacist, [employer] [facility] ; Pool: P [facility] Pool #: [id number] documented in this encounterDetwiler Memorial Hospital04-28-2025 Telephone encounter Note * Telephone Encounter - Macarena Sanchez - 09/18/2024 4:03 PM EDT Patient will be calling to reschedule her IV IG and benlysta. She needs to find a senior communications specialist and will call back with the dates that she will be available. [facility]04-28-2025 Miscellaneous Notes* Telephone Encounter - Macarena Sanchez - 09/18/2024 4:03 PM EDT Patient will be calling to reschedule her IV IG and benlysta. She needs to find a senior communications specialist and will call back with the dates that she will be available. documented in this encounterDetwiler Memorial Hospital04-28-2025 Telephone encounter Note * Telephone Encounter - Pamella Pichardo RPh - 09/18/2024 10:52 AM EDT Patient needs refill of Benlysta Date of Ariadna Melissa Haley's last Rheumatology office visit: 03/18/24 Next appointment date: 10/07/24 Last labs: 08/29/24 Last TB test: TB Result Date Value Ref Range Status 03/23/2024 Negative Final Requested Prescriptions Pending Prescriptions Disp Refills belimumab (BENLYSTA) 200 mg/mL auto-injector 12 mL 3 Sig: Inject 200mg (1 pen) subcutaneously once weekly Patient prefers: [facility] Thank you! Maria Esther Pichardo, PharmD Clinical Pharmacist, [employer] [facility] ; Pool: P [facility] Pool #: [id number] [facility]04-22-2025 Telephone encounter Note* Telephone Encounter - Karina Pino - 09/12/2024 2:35 PM EDT Patient has been scheduled at [place] [facility]04-22-2025 Miscellaneous Notes* Telephone Encounter - Karina Pino - 09/12/2024 2:35 PM EDT Patient has been scheduled at [place] * Telephone Encounter - Sherrie Cortes - [...] below scheduling for the drug. Cesilia Hicks [facility] You25 minutes ago (11:20 AM) Please schedule her every 2 weeks for 3 doses, then every 4 weeks for Benlysta. Cesilia Vicente Laura [facility] You27 minutes ago (11:18 AM) [...] Thank you * Telephone Encounter - Basia Samuel, AVILA - 09/06/2024 4:20 PM EDT Patient has requested to switch from Benlysta injections to infusions. Will forward to Rheum provider. Anahi Becerril RN nurse manager school: patient would like to know if she [place] [facility] [place] 8 [facility]. Basia Samuel RN documented in this encounterDetwiler [facility] Hospital04-22-2025 Telephone encounter Note * Telephone [...] daughter recommendations and patient informed. Sherrie Cortes [facility]04-21-2025 Telephone encounter Note* Telephone Encounter [...] of the below scheduling for the drug. Ceislia Hicks RPh You25 minutes ago (11:20 AM) [...] week after her SQ dose. Cesilia Vicente [facility]04-17-2025 Telephone encounter Note* Telephone Encounter - Lynne Ni MD - 09/07/2024 12:52 PM EDT Please start prior authorization for IV benlysta Signed therapy plan with loading doses if approved by insurance. May schedule 1week after last sq injection benlysta pen if approved. Thank you [facility]04-17-2025 Telephone encounter Note* Telephone Encounter - Enma Hamm RN - 09/07/2024 9:04 AM EDT Results discussed with pt. She is set for IVIG 10/04/24. She denies further questions needs or concerns at this time. Enma Hmam RN [facility]04-17-2025 Miscellaneous Notes* Telephone Encounter - Enma Hamm RN - 09/07/2024 9:04 AM EDT Results discussed with pt. She is set for IVIG 10/04/24. She denies further questions needs or concerns at this time. Enma Hamm RN documented in this encounterDetwiler Memorial Hospital04-16-2025 Evaluation note* Diagnosis Onset Date Resolution Status Admit Date Lumbosacral spondylosis acuteApril 2024 3:42pmOther chronic painacuteApril 2024 3:42pm SacroiliitisacuteApril 2024 3:42pmLumbosacral spondylosisacuteJune 2024 11:15amOther chronic painacuteJune 2024 11:15amSacroiliitisacuteJune 2024 11:15am [facility] Work Phone: 1(329) 930-617004-16-2025 Evaluation note* Diagnosis Onset Date Resolution Status Admit Date Lumbosacral spondylosis acuteApril 2024 3:42pmOther chronic painacuteApril 2024 3:42pm SacroiliitisacuteApril 2024 3:42pmLumbosacral spondylosisacuteJune 2024 11:15amOther chronic painacuteJune 2024 11:15amSacroiliitisacuteJune 2024 11:15amLumbosacral spondylosisacuteJuly 2024 9:03amOther chronic painacuteJuly 2024 9:03amSacroiliitisacuteJuly 2024 9:03am [facility] Work Phone: 1(448) 825-232204-16-2025 Telephone encounter Note* Telephone Encounter - Basia Samuel RN - 09/06/2024 4:20 PM EDT Patient has requested to switch from Benlysta injections to infusions. Will forward to Rheum provider. Anahi Becerril RN nurse manager school: patient would like to know if she can bring her 8 year old to treatmentsin the summer. Basia Samuel RN [facility]04-16-2025 History of Present illness Narrative* Vaibhav Carvalho APRN.CNP - 09/06/2024 9:00 AM EDT Images from the original note were not included. NAME: Ariadna Haley CLINIC NO.: [id number] DATE OF SERVICE: September 06, 2024 (Deven) [...] injections. Shefollows with multiple doctors including and leader writer, pantograph transferrer, air traffic control specialist center and PCP. She has been told they [...] THREE TIMES A DAY^Disp: 135 tablet^Rfl: 1 cnsovgmrxeHLOWU-dmxrza-dvtwgphmu (BMX 1:1:1) 1:1:1 liqd^Take 5 mL by [...] (Crohn's [Other]) Mother . Vaibhav Carvalho APRN, HATCHERY SUPERVISOR-C, [facility] Provided at: [place], [place] CC: Manuel Ferris MD [address] [address] documented in this encounterDetwiler [facility] Hospital04-16-2025 NoteWhite [facility]04-14-2025 History of Present illness Narrative* Gordo Barfield MD - 09/04/2024 3:20 PM EDT Subjective Patient ID: Ariadna Haley is a 43 y.o. female who presents for Thyroid Nodule (Follow up ultrasound [facility] 08/24/24) Thyroid US shows a [id number] left inf pole TR4 nodule. 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/2023 Depression, recurrent (CMS/[facility]) 06/09/2023 Discoid lupus erythematosus (CMS/HCC) 02/14/2022 Disturbance of skin sensation 07/06/2023 Elevated sed rate 03/05/2021 High total serum IgM 03/05/2021 Enthesopathy of hip region 07/06/2023 Essential hypertension (CMS/HCC) 06/09/2023 Excessive and frequent menstruation with irregular cycle 09/24/2022 Family history of Crohn's disease 03/05/2021 Hair loss 03/05/2021 Hyperlipidemia ([facility]/HCC) 05/31/2014 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 02/04/2023 Long-term use of high-risk medication 06/15/2022 Long-term use of Plaquenil 03/05/2021 LPRD (laryngopharyngeal reflux disease) 07/06/2023 Megaloblastic anemia due to vitamin B12 deficiency 03/04/2022 Myalgia 07/06/2023 Obesity, Class III, BMI 40-49.9 (morbid obesity) ([facility]) 09/07/2022 Obstructive sleep apnea syndrome 05/20/2022 [...] Insulin resistance 03/07/2024 Lupus erythematosus 04/06/2024 Sacroiliitis (CMS/[facility]) 04/06/2024 Resolved Ambulatory Problems Diagnosis Date Noted No Resolved Ambulatory Problems Past Medical History: Diagnosis Date Cervical lymphadenopathy COVID-19 vaccine administered Difficulty walking Fatigue Fibromyalgia, primary History of removal of cyst 2012 HTN (hypertension) (CMS/HCC) Hx of abnormal cervical Pap smear 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 Patient stated will complete labs a walk in [facility]04-12-2025 Miscellaneous Notes* Telephone Encounter - [...] diagnoses: Vitamin D deficiency documented in this encounterDetwiler Memorial Hospital04-11-2025 Telephone encounter Note * Telephone [...] above. Please process accordingly. Lynne Ni MD [facility]04-11-2025 Telephone encounter Note* Telephone Encounter [...] Ni MD Assoc. diagnoses: Vitamin D deficiency [facility]04-07-2025 Telephone encounter Note* Telephone Encounter - Renea Schneider MA - 08/28/2024 11:04 AM EDT Do you want labs? Patient coming in Wednesday09/06/24 for follow up treatment. Thanks, Renea Schneider MA [facility]04-01-2025 Miscellaneous Notes* Telephone Encounter - Renea Schneider MA - 08/28/2024 11:04 AM EDT Do you want labs? Patient coming in Wednesday09/06/24 for follow up treatment. Thanks, Renea Schneider MA documented in this encounterDetwiler [facility] Hospital04-01-2025 Miscellaneous Notes* Telephone Encounter - Renea Schneider MA - 11/20/2024 12:00 PM EDT Patient coming in for treatment visit Wednesday11/29/24. Please add lab orders. thanks. Renea Schneidre MA documented in this encounterDetwiler [facility] Hospital03-27-2025 NoteWhite [facility]03-18-2025 Telephone encounter Note* Telephone Encounter - [...] and patient is aware. Basia Samuel RN [facility]03-18-2025 Miscellaneous Notes* Telephone Encounter - [...] aware. Basia Samuel RN documented in this encounterDetwiler [facility] Hospital03-18-2025 [facility]03-18-2025 History of Present illness Narrative* Basia Samuel RN - 08/08/2024 9:03 AM EDT Patient states that she spoke with provider and she will defer IV iron for now, she is taking oral iron and will have labs rechecked in 1 month Basia Samuel RN documented in this encounterDetwiler [facility] Hospital03-05-2025 History of Present illness Narrative* [...] lupus being treated by rheumatology at the [facility] on steroids, Plaquenil and monoclonal antibody [...] , Rfl: ergocalciferol (Vitamin D-2) 1.25 MG (72287 UT) capsule, Take 1 capsule (50,000 Units) [...] Attestation By signing my name below, Carina DorantesKimberly GILLIS , Scribe attest that this documentation [...] exam, discussion and plan. documented in this encounterWVUMedicine [facility] Work Phone: 1(449) 209-123303-05-2025 Instructions* Patient Instructions* Aissatou Hanson RN - [...] time of your visit. documented in this encounterWVUMedicine [facility] Community Hospital Work Phone: 1(578) 476-670103-04-2025 History of Present illness Narrative* Bernabe English [...] ointment bid. On Plaquenil and Benlysta from pantograph transferrer and started IVIG from wood last maker. Follow up Diagnosis: Hidradenitis Location: thighs Last [...] given frequent flares of thrush. Start Nystatin 647193 unit suspension qid x 14 days. Recommended [...] not swallow it. Related Medications nystatin (Mycostatin) 963313 UNIT/ML suspension Take 4 mL (400,000 Units) [...] is needed. Instructed to follow up with MANAGER BUSINESS BANKING for further work up. Next Visit: 1 year documented in this encounterGolden Valley Memorial [id number] History of Present illness Narrative* Luna Emanuel [...] been reviewed prior to dispensing the medication. Customer Consulting Manager Assessment Patient confirmed: Yes Med/dose confirmed: Yes Supplies needed: No supplies needed Missed doses: No Copay amount: 0 Payment confirmed: Yes Delivery method: FedEx Signature required: Waived on patient request Delivery address: [address] [place] [address] Delivery date: 07/27/24 Questions or concerns for the pharmacist?: No Did you have any side effects believed to be related to this medication, that resulted in hospitalization?: No Current Outpatient Medications on File Prior to Visit Medication Sig fkkbpwksdlYLCHJ-ktsrsp-tmpoygkvr (BMX 1:1:1) 1:1:1 liqd Take 5 mL [...] file prior to visit. [facility] RX SPECIALTY CLINICAL ASSESSMENT - [...] longer tolerated. Luna Emanuel documented in this encounterDetwiler Memorial Hospital03-04-2025 NoteWhite Hospital02-27-2025 NoteHNO ID: [id number] Author: ALHAJI VICTORIA, DO Service: ? Author Type: Physician Type: Progress Notes Filed: 07/21/2024 13:05 Note Text: VIRTUAL VISIT PROGRESS NOTE This is a virtual visit using S[employer] Video Visit. It required patient-provider interaction for the medical decision making as documented below. I have communicated my name and active licensure. The patient's identity and physical location were verified at the time of this visit. Either the patient or their legal auto claim representative has been informed of the risks [...] of 18 Current Outpatient Medications Medication Sig soxdwtscciLMHBY-kymsgf-fdoehfgwz (BMX 1:1:1) 1:1:1 liqd Take 5 mL [...] WHILE ON* belimumab ( (more content not included)...[facility]02-27-2025 History of Present illness Narrative* Alhaji Victoria DO - 07/20/2024 11:41 AM EST VIRTUAL VISIT PROGRESS NOTE This is a virtual visit using [employer] Zoom Video Visit. It required patient- provider interaction for the medical decision making as documented below. I have communicated my name and active licensure. The patient's identity and physical location wereverified at the time of this visit. Either the patient or their legal auto claim representative has been informed of the risks [...] of 18 Current Outpatient Medications Medication Sig rmefyepgeaHKHRL-hwpbci-rqxfkoaie (BMX 1:1:1) 1:1:1 liqd Take 5 mL [...] on the R. The patient or authorized auto claim representative has agreed to proceed with the [...] axillary nodule which is being followed by head wood grinder. Through shared decision making with the patient, [...] DO July 21, 2024 documented in this encounterDetwiler Memorial Hospital02-26-2025 [address] [id number] Pain Management Procedure Note Signed Patient: Ariadna Haley MR#: [id number] : 1980 Acct:[id number] Age/Sex: 43 / F Adm Date: 5 Loc: Room: Type: [facility] Attending Dr: Adolfo Kang MD [...] MD 07/19/24 1104 Signed By: 07/19/24 1134 [facility]02-19-2025 Instructions* Patient Instructions* Marky Gacsa PA-C - 07/12/2024 2:33 PM EST Alginate therapy (Reflux Raft, Reflux Gourmet) documented in this encounterDetwiler Memorial Hospital02-19-2025 NoteWhite Hospital02-19-2025 History of Present illness Narrative* Marky Gasca PA-C - 07/12/2024 2:14 PM EST Images from the original note were not included. [facility] NOTE CC: Ariadna Haley is a [...] Current medication(s): Current Outpatient Medications Medication Sig fvyvfumsziXLQZE-zxupbp-hhfyecuer (BMX 1:1:1) 1:1:1 liqd Take 5 mL [...] Level: 3 - Low documented in this encounterDetwiler Memorial Hospital02-17-2025 Evaluation note* Diagnosis Onset Date Resolution Status Admit Date Lumbosacral spondylosis acuteFebruary 2024 3:16pmOther chronic painacuteFebruary 2024 3:16pm SacroiliitisacuteFebruary 2024 3:16pm [facility] Work Phone: 1(836) 734-998802-17-2025 Evaluation note* Diagnosis Onset Date Resolution Status Admit Date Lumbosacral spondylosis acuteFebruary 2024 3:16pmOther chronic painacuteFebruary 2024 3:16pm SacroiliitisacuteFebruary 2024 3:16pmLumbosacral spondylosisacuteMarch 2024 3:40pmOther chronic painacuteMarch 2024 3:40pmSacroiliitisacute July 31, 2024 3:40pm [facility] Work Phone: 1(571) 710-531202-17-2025 Telephone encounter Note* Telephone Encounter - Krista Braswell MA - 07/10/2024 7:28 AM EST Pt was notified via . [facility]02-17-2025 Miscellaneous Notes* Telephone Encounter - [...] accordingly. Lynne Ni MD documented in this encounterDetwiler Memorial Hospital02-16-2025 Telephone encounter Note * Telephone Encounter - Lynen Ni MD - 07/09/2024 3:48 PM EST [...] above. Please process accordingly. Lynne Ni MD [facility]02-06-2025 History of Present illness Narrative* Luna Emanuel - 06/29/2024 1:13 PM EST [facility] Specialty Refill Assessment Medication(s): Benlysta Patient's current [...] been reviewed prior to dispensing the medication. Customer Consulting Manager Assessment Patient confirmed: Yes Med/dose confirmed: Yes Supplies needed: No supplies needed Missed doses: No Estimated days supply on hand: 1 Copay amount: 0 Payment confirmed: Yes Delivery method: FedEx Signature required: Waived on patient request Delivery address: [address] [place] [address], [facility] [address] Delivery date: 07/05/24 Questions or concerns for [...] facility-administered medications on file prior to visit. [facility] RX SPECIALTY CLINICAL ASSESSMENT - INFLAMMATORY [...] longer tolerated. Luna Emanuel documented in this encounterDetwiler Memorial Hospital02-06-2025 NoteWhite Hospital01-31-2025 Telephone encounter Note* Telephone Encounter - Krista Fonseca MA - 06/23/2024 8:27 AM EST Pt has been notified via [employer]. [facility]01-31-2025 Miscellaneous Notes* Telephone Encounter - Krista Fonseca MA - 06/23/2024 8:27 AM EST Pt has been notified via [employer]. * Telephone Encounter - Lynne Ni [...] accordingly. Lynne Ni MD documented in this encounterDetwiler Memorial Hospital01-30-2025 Telephone encounter Note * Telephone [...] above. Please process accordingly. Lynne Ni MD [facility]01-29-2025 Telephone encounter Note* Telephone Encounter - Sherrie Cortes - 06/21/2024 2:10 PM EST Thanks for the clarification! I didn't schedule the patient yet for Iron because of the question below so we are all good. Thank you! Sherrie Cortes [facility]01-29-2025 Miscellaneous Notes* Telephone Encounter - [...] we will recheck. thanks documented in this encounterDetwiler Memorial Hospital01-29-2025 Telephone encounter Note * Telephone [...] is aware you will call if needed. [facility]01-29-2025 Telephone encounter Note* Telephone Encounter - Vaibhav Carvalho APRN.CNP - 06/21/2024 1:07 PM EST Ok that is fine she can try oral iron Ferrous sulfate 325 mg every other day. Ok to keep her next appointment and we will recheck. thanks [facility]01-28-2025 Telephone encounter Note* Telephone Encounter - Sherrie Cortes - 06/20/2024 8:38 AM EST Left another message for patient. Sent Carbonlights Solutionshart to call back to schedule infusions when she's ready to schedule and provided phone number. Sherrie Cortes [facility] [facility] Miscellaneous Notes* Telephone Encounter - [...] callback with any questions. documented in this encounterDetwiler [facility] Hospital01-24-2025 Telephone encounter Note * Telephone Encounter - Sherrie Cortes - 06/16/2024 3:32 PM EST Call placed to patient, no answer. Left detailed message to call back to schedule for Venofer. Sherrie Cortes [facility]01-24-2025 Telephone encounter Note* Telephone Encounter - Vaibhav Carvalho APRN.CNP - 06/16/2024 12:26 PM EST Called patient and left a message regarding iron infusions. I did inform patient that she is low oniron and we can replace with IV infusion. Will have the office call to schedule. Encouraged to callback with any questions. [facility]01-23-2025 Telephone encounter Note* Telephone Encounter [...] Pt had recent mammogram that was negative [facility] HospitalDjfzaqxils03-30-8273 Miscellaneous Notes* Telephone Encounter - KELVIN Cabrera [...] mammogram that was negative documented in this encounterGolden Valley Memorial [id number] History of Present illness Narrative* Iraida Pate APRN.TRUE - 06/14/2024 10:43 AM EST Glucose - SIBO CPT 10774 Hydrogen Breath Test Ariadna Haley 1980 June 14, 2024 Referring Physician: Bandar Portillo NP Indication: NSG TEST INDICATIONS: Diarrhea R19.7, Abdominal Pressure R10.9 Weight: 275 lbs Location: [facility] Duration of Test: 2 hrs Hydrogen Methane CO2 MEASURED CORRECTION FACTOR TESTERS NAME Baseline 9:00 am 1 5 5.1 1.07 Christopher Sullivan HODA Test Solution Given: 100 gm glucose 10 oz liquid Christopher Rodriguezbaldemar HODA #1 - 15 minutes 9:15 am [...] 10:30 am 1 5 4.2 1.30 Christopher SullivanHODA mcdermott #7 - 105 minutes 10:45 am 1 5 4.5 1.22 Christopher Sullivan HODA #8 - 120 minutes 11:00 am 5 6 4.6 1.19 Christopher Sullivan MA Guidelines Baseline < 10 ppm Hydrogen (H2) > 20 ppm over baseline Methane (CH4) > 20 ppm over baseline Final Test Results: negative Physician Signature: Iraida Pate APRN.CNP documented in this encounterDetwiler Memorial Hospital01-21-2025 Progress note* Allied Health - [...] 13, 2024 TIME: 10:29 AM PAGER/CONTACT #: [facility]01-21-[facility] Miscellaneous Notes* Allied Health - [...] 10:29 AM PAGER/CONTACT #: documented in this encounterDetwiler Memorial Hospital01-21-2025 [facility]01-21-2025 History of Present illness Narrative* Vaibhav Carvalho APRN.CNP - 06/13/2024 9:07 AM EST Images from the original note were not included. NAME: Ariadna Haley [facility] NO.: [id number] DATE OF SERVICE: June 13, 2024 (Deven) [...] injections. Shefollows with multiple doctors including and leader writer, pantograph transferrer, air traffic control specialist center and PCP. She has been told they [...] (Crohn's [Other]) Mother . Vaibhav Carvalho APRN, HATCHERY SUPERVISOR-C, [facility] Hematology [facility] Oncology Services Provided at: [place], [place] CC: Manuel Ferris MD [address] [facility] [address] documented in this encounterDetwiler Memorial Hospital01-20-2025 NoteWhite [facility]01-20-2025 History of Present illness Narrative* Lee Friedman - 06/12/2024 2:31 PM EST CMN RECEIVED BY [employer] VIA FAX, COMPLETED, AND PLACED IN PROVIDER MAILBOX FOR SIGNATURE Lee Friedman Coordinator III [facility] SENDING CMN: Josh SIGNED AND DATED CMN, FAXED TO DME & CONFIRMATION PAGE RECEIVED: 06.28.2024 documented in this encounterDetwiler Memorial Hospital01-20-2025 Telephone encounter Note * Telephone Encounter - Margret Cuenca MA - 06/12/2024 12:00 PM EST Patient has an OTV appointment on 06/13. Please place lab orders. Margret Cuenca MA [facility]01-20-2025 Miscellaneous Notes* Telephone Encounter - Margret Cuenca MA - 06/12/2024 12:00 PM EST Patient has an OTV appointment on 06/13. Please place lab orders. Margret Cuenca MA documented in this encounterDetwiler Memorial Hospital01-14-2025 History of Present illness Narrative* [...] been reviewed prior to dispensing the medication. Customer Consulting Manager Assessment Patient confirmed: Yes Med/dose confirmed: Yes Supplies needed: No supplies needed Missed doses: No Estimated days supply on hand: 1 Copay amount: 0 Payment confirmed: Yes Delivery method: FedEx Signature required: Waived on patient request Delivery address: [address] [place] [id number] Delivery date: 06/08/24 Questions or concerns for [...] file prior to visit. [facility] RX SPECIALTY CLINICAL ASSESSMENT - [...] longer tolerated. Luna Emanuel documented in this encounterDetwiler Memorial Hospital01-14-2025 NoteWhite Hospital01-14-2025 History of Present illness Narrative* KELVIN [...] Ambulatory Problems Diagnosis Date Noted Autoimmune disease ([facility]) 06/01/2023 Fibromyalgia 06/01/2023 Autonomic dysfunction 06/01/2023 [...] use disorder 07/06/2023 Cytomegalovirus infection (HCC) ([facility]) 07/06/2023 Depression, recurrent ([facility]) 06/09/2023 Discoid lupus erythematosus ([facility]) 02/14/2022 Disturbance of skin sensation 07/06/2023 [...] Chronic laryngopharyngitis COVID-19 vaccine administered x 2 ([employer]) Difficulty walking Fatigue Fibromyalgia, primary GERD (gastroesophageal [...] behalf of: KELVIN Cabrera documented in this encounterGolden Valley Memorial [id number] NoteWhite Hospital12-23-2024 History of Present illness Narrative* Deisy Jaime LSW - 05/15/2024 9:09 AM EST Patient's name appears on the [facility] First Time Treatment Report for a non- oncology treatment. No psychosocial assessment is indicated. BILL Rosenberg Goals of Care Advance Directives are not on file. documented in this encounterDetwiler Memorial Hospital12-20-2024 History of Present illness Narrative* [...] been reviewed prior to dispensing the medication. Customer Consulting Manager Assessment Patient confirmed: Yes Med/dose confirmed: Yes Supplies needed: No supplies needed Missed doses: No Estimated days supply on hand: 1 Copay amount: 0 Payment confirmed: Yes Delivery method: FedEx Signature required: Waived on patient request Delivery address: [address] [place], [place] [id number] Delivery date: 05/16/24 Questions or concerns for [...] file prior to visit. [facility] RX SPECIALTY CLINICAL ASSESSMENT - [...] longer tolerated. Luna Emanuel documented in this encounterDetwiler Memorial Hospital12-20-2024 NoteWhite Hospital12-04-2024 Nurse Note* Radha Schofield MA - 04/26/2024 9:32 AM EST Patient Identification confirmed: yes. Injection given and documented on JUL per provider order. Radha Schofield MA [facility]12-04-2024 Nurse Note* Radha Schofield MA - 04/26/2024 9:32 AM EST Patient Identification confirmed: yes. Injection given and documented on MAR per provider order. Radha Schofield MA documented in this encounterDetwiler Memorial Hospital11-22-2024 Telephone encounter Note * Telephone Encounter - Gay Barnett - 04/14/2024 12:11 PM EST Patient coming in for a sibo breath test on Wednesday and has been on keflex for 3 days and needs to be on for ten so she will need to reschedule [facility]11-22-2024 Miscellaneous Notes* Telephone Encounter - Gay Barnett - 04/14/2024 12:11 PM EST Patient coming in for a sibo breath test on Wednesday and has been on keflex for 3 days and needs to be on for ten so she will need to reschedule documented in this encounterDetwiler Memorial Hospital11-19-2024 NoteWhite Hospital11-18-2024 Miscellaneous Notes* Telephone Encounter - Sherrie [...] Please advise. Sherrie Cortes documented in this encounterDetwiler Memorial Hospital11-18-2024 Telephone encounter Note * Telephone Encounter - Sherrie Cortes - 04/10/2024 2:12 PM EST Patient requested this appointment be rescheduled for the end of April. She has been scheduled for 05/19, she is all set. Thank you! Sherrie Cortes [facility]11-18-2024 Telephone encounter Note* Telephone Encounter - Shantel Arce RPh - 04/10/2024 2:07 PM EST SUBQ products (eg, 20% [Cuvitru, Hizentra, Xembify]) or IM products (eg, 16% [GamaSTAN]) intravenously. It would depend upon insurance coverage and would be done as a retail prescription at designated insurance specialty pharmacy. Elpidio Arce, PharmD, BCOP [facility] Work Phone: [phone]) 987-823011-18-2024 Telephone encounter Note* Telephone Encounter - Enma [...] r/s 04/14 appt per pt request Enma Hamm, RN [facility]11-18-2024 Telephone encounter Note* Telephone Encounter - Enma Hamm RN - 04/10/2024 12:54 PM EST Called to discuss with pt. She was researching online and found SCIG a weekly subq injection to give herself that is less dose, and has less side effects. Pharmacy/[facility]: please advise Enma Hamm RN [facility]11-18-2024 Telephone encounter Note* Telephone Encounter - Vera Najera MD - 04/10/2024 12:26 PM EST Really sorry - I don't recall the home infusion of IVIG - I think it is safer to give it to her in-house as IV so we can monitor infusion reactions. Sorry if I created a misunderstanding. [facility]11-18-2024 History of Present illness Narrative* [...] use disorder 07/06/2023 Cytomegalovirus infection (HCC) ([facility]) 07/06/2023 Depression, recurrent ([facility]) 06/09/2023 Discoid lupus erythematosus ([facility]) 02/14/2022 Disturbance of skin sensation 07/06/2023 Elevated sed rate 03/05/2021 High total serum IgM 03/05/2021 Enthesopathy of hip region 07/06/2023 Essential hypertension (CMS/HCC) 06/09/2023 Excessive and frequent menstruation with irregular cycle 09/24/2022 Family history of Crohn's disease 03/05/2021 Hair loss 03/05/2021 Hyperlipidemia ([facility]) 05/31/2014 skilled nursing current use of systemic steroids 02/04/2023 Long-term use of high-risk medication 06/15/2022 Long-term use of Plaquenil 03/05/2021 LPRD (laryngopharyngeal reflux disease) 07/06/2023 Megaloblastic anemia due to vitamin B12 deficiency 03/04/2022 Myalgia 07/06/2023 Obesity, Class III, BMI 40-49.9 (morbid obesity) ([facility]) 09/07/2022 Obstructive sleep apnea syndrome 05/20/2022 Oral lesion 07/06/2023 Pain, hip 07/06/2023 Rash and nonspecific skin eruption 03/05/2021 Steroid-induced osteoporosis ([facility]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) 02/04/2023 Somnolence, daytime 05/20/2022 Secondary osteoarthritis of multiple sites 03/05/2021 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 02/04/2023 Swelling of lymph nodes 03/05/2021 Vitamin D deficiency 03/06/2021 Vitamin B12 deficiency 05/31/2014 Pure hypercholesterolemia, unspecified ([facility]/H[facility]) 08/10/2023 Hoarse 08/10/2023 Thyroid nodule ([facility]) 08/10/2023 Shortness of breath 07/13/2023 Paroxysmal supraventricular tachycardia ([facility]) 07/13/2023 PAC (premature atrial contraction) 07/13/2023 [...] of removal of cyst 2012 HTN (hypertension) ([facility]) Hx of abnormal cervical Pap smear [...] AREA NEEDED ergocalciferol (Vitamin D2) 1.25 MG (08317 UT) capsule Take 50,000 Units by mouth [...] referred from the [facility] documented in this encounterGolden Valley Memorial [id number] Telephone encounter Note* Telephone Encounter - Sherrie [...] Triage was involved? Please advise. Sherrie Cortes [facility]11-15-2024 NoteWhite Hospital11-15-2024 History of Present illness Narrative* Deisy Jaime LSW - 04/07/2024 9:30 AM EST Patient's name appears on the [facility] First Time Treatment List for a non- oncology treatment. No psychosocial assessment is indicated. BILL Rosenberg Goals of Care Advance Directives are not on file SIGNATURE: JUSTICE Rosenberg PATIENT NAME: Ariadna Haley DATE: April 07, 2024 TIME: 9:31 AM PAGER/CONTACT #: documented in this encounterDetwiler Memorial Hospital11-14-2024 Evaluation + Plan note* Assessment [...] her Raynaud's. All her questions were answered. [facility]11-14-2024 Miscellaneous Notes* Assessment & Plan Note - [...] her questions were answered. documented in this encounterTrinity Health [facility]11-14-2024 History of Present illness Narrative* Hayden Arciniega [...] Assessment and Plan: Problem List Rheumatoid arthritis ([facility]) Relevant Medications ibuprofen (ADVIL,MOTRIN) 200 mg tablet predniSONE (STERAPRED DS) 10 mg tablet pack Systemic lupus erythematosus ([facility]) - Primary Relevant Medications ibuprofen (ADVIL,MOTRIN) 200 [...] orders for this visit: Systemic lupus erythematosus ([facility]) - Vas art doppler lwr bilat mult lev/PVR; Future Cold extremities - [facility] - [place], [place] - Vas art doppler lwr bilat mult lev/PVR; Future Pain of lower extremity, unspecified laterality - [facility] - [place], [place] - Vas art doppler lwr bilat mult lev/PVR; Future Rheumatoid arthritis, involving unspecified site, unspecified whether rheumatoid factor present ([facility]) Current smoker 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 Hayden Arciniega MD, ZIA, RPVI, FSVS, FACS [facility] This note was created with the assistance of a speech recognition program. While intending to generate a timely document that accurately reflects the content of the visit, no guarantee can be provided that every grammatical or spelling mistake has been or will be identified or corrected. Thank you for your understanding. documented in this encounterElyria Memorial HospitalGray Hawk Payment Technologies [facility] [id number] Instructions* Patient Instructions* Hayden Arciniega MD - 04/06/2024 9:40 AM EST Are You Ready To Kick The Habit? Free Tobacco Cessation Resources [facility] Services [facility] provide all employees with free tobacco cessation services that include: Counseling to understand nicotine addiction Education about medications that can help you successfully quit Assistance with developing a plan to quit Call to set up an individual appointment or find out when group classes will be held: [facility]: [phone] [facility]: [phone] [facility]: [phone] [facility]: [phone] Quit Smoking Action Plan and Resources [facility] offers an eight-week, online smoking cessation plan to all [facility] employees, regardless of whether [employer] is your medical insurance provider. Go to www.Hyphen 8.org/employeewellness and click the Health Risk Assessment and Resources link to get started. In the [employer] menu, click Action Plans instead of Health Risk Assessment to access the Quit Smoking Action Plan. Additional smoking cessation resources are also available to all [facility] employees on the [employer] web page at www.RAREFORM/quitsmoking. [facility] Tobacco Cessation Program If [employer] is your medical insurance provider, there are more free resources available to you, including: No copays or deductibles on local tobacco cessation counseling services to help you quit Prescription assistance for tobacco cessation medications to help you quit For details about the tobacco cessation program available to [employer] members, go to www.Wellsphere.APERA BAGS (Search: Tobacco Cessation Program). [place] Tobacco Quit Line 5-734-KFPT-NOW ( ) is a toll-free, telephonic service that helps [place] residents quit smoking and using tobacco. It is staffed by experts who tailor a quit plan for you and provide you with advice. [place] Tobacco Quit Line 5-048-NLRH-NOW ( ) is a toll-free, telephonic service that helps [place] residents quit smoking and using tobacco. It is staffed by experts who tailor a quit plan for you and provide you with advice. Two weeks of nicotine replacement therapy may be provided at no charge, if needed. Additional Resources These national organizations also offer free information and resources to help you quit tobacco: [place] [employer]--www.cancer.org/healthy/stayawayfromtobacco [place] [employer]--www.heart.org (Search: Quit Smoking) Centers for Disease Control and Prevention--www.cdc.gov/tobacco [place] [employer]--www.lungusa.org documented in this encounterTrinity [facility]11-11-2024 Telephone encounter Note* Telephone Encounter - Marky Nichols DO - 04/03/2024 9:36 AM EST Changed terbinafine to itraconazole at pt request. [facility] [id number] Miscellaneous Notes* Telephone Encounter - Marky Nichols DO - 04/03/2024 9:36 AM EST Changed terbinafine to itraconazole at pt request. documented in this encounterGolden Valley Memorial [id number] Telephone encounter Note* Telephone Encounter - Lynne [...] above. Please process accordingly. Lynne Ni MD [facility]11-10-2024 Miscellaneous Notes* Telephone Encounter - [...] accordingly. Lynne Ni MD documented in this encounterDetwiler Memorial Hospital11-10-2024 History of Present illness Narrative* [...] with her immunosuppressive therapy. documented in this encounterGolden Valley Memorial [id number] Instructions* Patient Instructions* Abhyankar, Vera, MD - 04/01/2024 4:28 PM EST Obtain body fluid culture from [facility]. B12 shot today and every 4 weeks. Continue Folic acid. Frequent infections plan IVIG for hypogammaglobulinemia Start when approved. RTC 3 months repeat labs same day. IVIG same day. documented in this encounterDetwiler Memorial Hospital11-08-2024 NoteWhite Hospital11-08-2024 History of Present illness Narrative* Ashly Castillo - 03/31/2024 12:29 PM EST CMN RECEIVED BY [employer] VIA FAX, COMPLETED, AND PLACED IN PROVIDER MAILBOX FOR SIGNATURE Ashly Castillo Cardiology Associate II 03/31/2024 [employer] SENDING CMN: JOSH SIGNED AND DATED CMN, FAXED TO DME & CONFIRMATION PAGE RECEIVED: 04/11/2024 documented in this encounterDetwiler Memorial Hospital11-07-2024 Telephone encounter Note * Telephone Encounter - Mae Elaine - 03/30/2024 8:01 AM EST Pt is scheduled and instructions were sent thru my chart. [facility]11-07-2024 Miscellaneous Notes* Telephone Encounter - [...] note were not included. documented in this encounterDetwiler Memorial Hospital11-06-2024 Telephone encounter Note * Telephone Encounter - Mae Elaine - 03/29/2024 9:02 AM EST Im for pt- saved time on 04/18 7:45 Also sent mychart msg. dm [facility]11-04-2024 NoteWhite [facility]11-04-2024 History of Present illness Narrative* Vera Najera MD - 03/27/2024 3:03 PM EST Images from the original note were not included. NAME: TeraAriadna CLINIC NO.: [id number] DATE OF SERVICE: March 27, 2024 (Marquis) Some elements in this clinic note that are critical to medical decision making have been carefully reviewed and included from a prior clinic note dated: December 27, 2023 (Liz) Referring Provider: Dr. Manuel Ferris Additional Clinicians involved in Ariadna Haley's care: VIRTUAL VISIT PROGRESS NOTE This is a virtual visit using [employer] Video Call. It required patient- provider interaction for the medical decision making as documented below. I have communicated my name and active licensure. The patient's identity and physical location wereverified at the time of this visit. Either the patient or their legal auto claim representative has been informed of the risks [...] noted. PLAN: Obtain body fluid culture from [facility]. B12 shot today and every 4 [...] injections. Shefollows with multiple doctors including and leader writer, pantograph transferrer, air traffic control specialist center and PCP. She has been told they [...] [facility] Hematology and Oncology Services Provided at: [place], [place] CC: Manuel Ferris MD [address] [address] documented in this encounterDetwiler Memorial Hospital10-31-2024 History of Present illness Narrative* [...] Ambulatory Problems Diagnosis Date Noted Autoimmune disease ([facility]) 06/01/2023 Fibromyalgia 06/01/2023 Autonomic dysfunction 06/01/2023 [...] use disorder 07/06/2023 Cytomegalovirus infection (HCC) ([facility]) 07/06/2023 Depression, recurrent ([facility]) 06/09/2023 Discoid lupus erythematosus ([facility]) 02/14/2022 Disturbance of skin sensation 07/06/2023 Elevated sed rate 03/05/2021 High total serum IgM 03/05/2021 Enthesopathy of hip region 07/06/2023 Essential hypertension ([facility]) 06/09/2023 Excessive and frequent menstruation with irregular cycle 09/24/2022 Family history of Crohn's disease 03/05/2021 Hair loss 03/05/2021 Hyperlipidemia ([facility]) 05/31/2014 skilled nursing current use of systemic steroids 02/04/2023 Long-term use of high-risk medication 06/15/2022 Long-term use of Plaquenil 03/05/2021 LPRD (laryngopharyngeal reflux disease) 07/06/2023 Megaloblastic anemia due to vitamin B12 deficiency 03/04/2022 Myalgia 07/06/2023 Obesity, Class III, BMI 40-49.9 (morbid obesity) ([facility]) 09/07/2022 Obstructive sleep apnea syndrome 05/20/2022 Oral lesion 07/06/2023 Pain, hip 07/06/2023 Rash and nonspecific skin eruption 03/05/2021 Steroid-induced osteoporosis ([facility]) 02/04/2023 Somnolence, daytime 05/20/2022 Secondary osteoarthritis of multiple sites 03/05/2021 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 02/04/2023 Swelling of lymph nodes 03/05/2021 Vitamin D deficiency 03/06/2021 Vitamin B12 deficiency 05/31/2014 Pure hypercholesterolemia, unspecified ([facility]) 08/10/2023 Hoarse 08/10/2023 Thyroid nodule ([facility]) 08/10/2023 Shortness of breath 07/13/2023 Paroxysmal supraventricular tachycardia ([facility]) 07/13/2023 PAC (premature atrial contraction) 07/13/2023 [...] of removal of cyst 2012 HTN (hypertension) ([facility]) Hx of abnormal cervical Pap smear Insulin resistance Laryngopharyngeal reflux disease Lupus Numbness Oral thrush Prediabetes Sleep apnea Weakness of limb HISTORY PAST MEDICAL HISTORY SOCIAL HISTORY Past Medical History: Diagnosis Date Anxiety Cervical lymphadenopathy Chronic laryngopharyngitis COVID-19 vaccine administered x 2 ([employer]) Difficulty walking Fatigue Fibromyalgia, primary GERD (gastroesophageal reflux disease) History of removal of cyst 2012 tailbone x2 HTN (hypertension) ([facility]) Hx of abnormal cervical Pap smear Hyperlipidemia ([facility]) Insulin resistance Laryngopharyngeal reflux disease Lupus [...] behalf of: KELVIN Cabrera documented in this encounterGolden Valley Memorial [id number] Nurse Note* Stacy Gutiérrez MA - 03/23/2024 10:16 AM EDT Patient Identification confirmed: yes. Injection given and documented on MAR per provider order. Stacy Gutiérrez MA [facility]10-31-2024 Nurse Note* Stacy Gutiérrez MA - 03/23/2024 10:16 AM EDT Patient Identification confirmed: yes. Injection given and documented on MAR per provider order. Stacy Gutiérrez MA documented in this encounterDetwiler Memorial Hospital10-28-2024 Telephone encounter Note * Telephone Encounter - Mae Elaine - 03/20/2024 12:37 PM EDT Images from the original note were not included. [facility]10-26-2024 History of Present illness Narrative* [...] visit. Either the patient or their legal auto claim representative has been informed of the risks [...] measures, may consider osteoporosis treatment if on predatory animal exterminator steroids/abnormal bmd, take vitamin D script [...] neurology/on metoprolol for POTs, avoid aggravating triggers, mcc pain recommendations per primary care provider/pain clinic/patient [...] measures, may consider osteoporosis treatment if on predatory animal exterminator steroids/abnormal bmd, take vitamin D script [...] neurology/on metoprolol for POTs, avoid aggravating triggers, mcc pain recommendations per primary care provider/pain clinic/patient [...] neurology/on metoprolol for POTs, avoid aggravating triggers, predatory animal exterminator pain recommendations per primary care provider/pain [...] nausea, vomiting, night sweats,scalp tenderness, visual changes, hernnadez, bowel/bladder changes, or other complaints. Last visit [...] Due for eye exam. Labs sent to [facility]/completed in 06/2021 (no results faxed to office, but patient pulled up results on her phone). Chronic current pain in neck, flank area, mid back, knees, legs, arms, all over pain. Better with lyrica 75mg 3times a day. Reports pain 4-8/10. Couple hrs AM stiffness. COVID vaccine [employer] 09/28/20, 10/19/20, 05/26/21. Feels safe at home. [...] pain: yes H/o precedent/frequent infection(s): as above Enthesopathy/[place]'s/heel/plantar tenderness: hands random painful/tingling Skin thickening, psoriasis, [...] COVID-19 original vaccine, age 12+ yr, monovalent ([employer] - PURPLE TOP) 09/28/2020 10/19/2020 05/26/2021 COVID-19 vaccine, age 12+ yr ([employer] COMIRNATY) 02/23/2023 COVID-19 vaccine, age 12+ yr, bivalent ([employer]) 02/08/2022 Pneumovax no Flu shot no Tetanus [...] (33);NL cbc, cmp, negative hla b27; Outside [place] 06/2021 low vitamin D 16, vitamin b12-307;high [...] unspecified SLE type, unspecified organ involvement status ([facility]) E53.8 Vitamin B12 deficiency L93.0 Discoid [...] measures, may consider osteoporosis treatment if on mcc steroids/abnormal bmd, take vitamin D script once [...] neurology/on metoprolol for POTs, avoid aggravating triggers, predatory animal exterminator pain recommendations per primary care provider/pain [...] (200mg) daily with a meal Please see joint yarner every 6-12months while on Hydroxychloroquine. Start azathioprine [...] touching your toes, sit-ups, using row machine predatory animal exterminator pain recommendations per primary care provider/pain [...] video & audio (virtual) or phone or [id number] patient care, completing clinical documentation, obtaining and/or [...] Workers' Compensation? No Do you need an it senior analyst? No [facility] MYCHART ZOOM MESSAGE Question 03/16/2024 7:44 [...] Percentile (range: 0 - 100) 4 5 [facility] SLAQ QUESTIONNAIRE Question 03/16/2024 7:51 PM EDT [...] of Right Forearm or Lower Left Leg. [facility] PROMIS 10 ADULT SHORT FORM V1.0 GLOBAL [...] my health Strongly Agree documented in this encounterDetwiler [facility]10-26-[facility]24 Instructions* Patient Instructions* Lynne Ni MD [...] (200mg) daily with a meal Please see joint yarner every 6-12months while on Hydroxychloroquine. azathioprine daily [...] touching your toes, sit-ups, using row machine mcc pain recommendations per primary care provider/pain clinic [...] your usual activities immediately. documented in this encounterDetwiler [facility] Hospital10-25-2024 Telephone encounter Note * Telephone [...] above. Please process accordingly. Lynne Ni MD [facility]10-25-2024 Miscellaneous Notes* Telephone Encounter - [...] VIDEO SPEC EST 03/18/2024 9:00 AM [facility] Last Ophthalmology Check for Plaquenil [...] Assoc. diagnoses: Pseudomonas infection documented in this encounterDetwiler [facility] Hospital10-25-2024 Telephone encounter Note * Telephone [...] VIDEO SPEC EST 03/18/2024 9:00 AM [facility] Last Ophthalmology Check for Plaquenil [...] Alhaji Victoria DO Assoc. diagnoses: Pseudomonas infection [facility]10-24-2024 History of Present illness Narrative* Luan DO Skip - 03/16/2024 11:30 AM EDT Reason for [...] Ambulatory Problems Diagnosis Date Noted Autoimmune disease ([facility]) 06/01/2023 Fibromyalgia 06/01/2023 Autonomic dysfunction 06/01/2023 [...] nursing note reviewed. Exam conducted with a truck driver supervisor present. Vitals: Estimated body mass index is [...] Disease with Dr. Baer and Specialist at [facility]. Patient voiced that Dr. Baer recommended surgery, but patient feels that maybe excessive. Specialist at [facility] suggested monitoring. Patient has had mammogram. Patient does not put anything on her breast.Ruled out Mondor's Breast concerns. Discussed [place] Oil at night and Vitamin E lotion. Patient voiced that her breast feel brambila and heavier. Discussed growth of breast and proper support. Breastare not hot nor warm to the touch. Patient to obtain bilateral breast ultrasound. Patient to followup with routine annual appointment and as needed. Documented by Alicia Christine LPN on behalf of: Luan Valdivia DO documented in this encounterGolden Valley Memorial [id number] [facility]BE[facility] Note Chief Complaint: New patient here to establish care. Ref from Gay De La Torre CNP for hypertension. Former [facility] cardiology patient. Had echo a few weeks ago at [facility]. Says her BP is very low [...] past several months. 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 She has undergone a [...] on any stimulants including caffeinated beverages, alcohol, fhel-pys-nayebzx Sudafed etc. If her symptoms of palpitations persist, particular if she has lightheadedness or dizziness, head upright tilt table test may be reasonable to evaluate for possible dysautonomia's I discussed the side effects and risks of long-term steroid therapy and recommended she discuss with her pantograph transferrer weaning off soon as possible Given her morbid obesity, her current symptoms and comorbidities are likely related to excessive weight: I encouraged physical activity, attempts to lose weigh (more content not included)...[facility] 03-07-2024 History of Present illness Narrative* Lee Friedman - 03/07/2024 8:35 AM EDT CMN RECEIVED BY [employer] VIA FAX, COMPLETED, AND PLACED IN PROVIDER MAILBOX FOR SIGNATURE Lee Friedman Coordinator III 03.07.2024 [employer] SENDING CMN: [email or web address] SIGNED AND DATED CMN, FAXED TO DME & CONFIRMATION PAGE RECEIVED: 03.07.2024 documented in this encounterDetwiler Memorial Hospital10-01-2024 Telephone encounter Note * Telephone [...] terrified to drive that far to [place].' Further reviewed the reasoning behind the visit needing to be in-person and stated that I would have our press secretary reach out if she is willingto accept an in-person appt. PT requested that I review with our clinical team if this can be a VV before she schedules. I let her know I will do so and be in touch. She had no further questions at this time. Luda Vargas Genetic Counseling Electronic Science Teacher Additional: see Khoa for documentation of scheduling and cancellation with genetics in 2021 [facility]10-01-2024 Miscellaneous Notes* Telephone Encounter - [...] terrified to drive that far to [place].' Further reviewed the reasoning behind the visit needing to be in-person and stated that I would have our press secretary reach out if she is willingto accept an in-person appt. PT requested that I review with our clinical team if this can be a VV before she schedules. I let her know I will do so and be in touch. She had no further questions at this time. Luda Vargas Genetic Counseling Electronic Science Teacher Additional: see Khoa for documentation of scheduling and cancellation with genetics in 2021 documented in this encounterDetwiler [facility] Hospital09-30-2024 Nurse Note* Kenzie Shannon MA - 02/21/2024 11:13 AM EDT Patient Identification confirmed: yes. Injection given and documented on MAR per provider order. Kenzie Shannon MA [facility]09-30-2024 Nurse Note* Kenzie Shannon MA - 02/21/2024 11:13 AM EDT Patient Identification confirmed: yes. Injection given and documented on MAR per provider order. Kenzie Shannon MA documented in this encounterDetwiler Memorial Hospital09-27-2024 Telephone encounter Note * Telephone Encounter - Sherrie Jimenes - 02/18/2024 1:26 PM EDT Patient is calling the [place] office requesting Dr. Ni to place a referral to genetics. Please advise. [facility]09-27-2024 Miscellaneous Notes* Telephone Encounter - Sherrie Jimenes - 02/18/2024 1:26 PM EDT Patient is calling the [place] office requesting Dr. Ni to place a referral to genetics. Please advise. documented in this encounterDetwiler Memorial Hospital09-24-2024 Telephone encounter Note * Telephone Encounter - Hansa Javed LPN - 02/15/2024 9:49 AM EDT PAP ORDER FAXED TO [facility] WITH DEMOGRAPHICS, OFFICE NOTES WITH CONFIRMATON NOTED. [facility]09-24-2024 Miscellaneous Notes* Telephone Encounter - Hansa Javed LPN - 02/15/2024 9:49 AM EDT [facility], OFFICE NOTES WITH CONFIRMATON NOTED. documented in this encounterDetwiler Memorial Hospital09-23-2024 History of Present illness Narrative* Elton (Textile Artist)Luda - 02/14/2024 2:32 PM EDT [facility] [...] been reviewed prior to dispensing the medication. Customer Consulting Manager Assessment Patient confirmed: Yes Med/dose confirmed: Yes Missed doses: No Estimated days supply on hand: 1 Next cycle/dose due: 02/17/24 Copay amount: 0 Payment confirmed: Yes Delivery method: FedEx Signature required: Waived on patient request Delivery address: [address] [place], [place] Delivery date: 02/17/24 Questions or concerns [...] file prior to visit. [facility] RX SPECIALTY CLINICAL ASSESSMENT - [...] efficacy and/or no longer tolerated. Luda Conde [facility] [phone] documented in this encounterDetwiler Memorial Hospital09-23-2024 History of Present illness Narrative* Elton EpsteinzeeWAVESLuda Benz - 02/14/2024 2:26 PM EDT Benefits investigation was conducted, indicating that a re-authorization is required for [employer]. PA was initiated and pending review. Plan Name: Keesha LionMedlucinda Balderrama: [id number] Ldua Conde CPhT [facility] [phone] documented in this encounterDetwiler Memorial Hospital09-23-2024 Instructions* Patient Instructions* Lexus Heck [...] treatment, there are resources available at the [facility] such as a nutrition consultation or referral to weight management programs at our [facility]. Please let us know if we can [...] and out of pocket expenses. DME: [employer] [phone] - Remember to clean your mask and equipment regularly, as directed. - Avoid use of ozone recycling operator, SoClean devices, or UV cleaning devices [...] the central scheduling system for the [facility] at [phone]. [facility] now offers direct scheduling for patients to schedule appointments. Virtual visits are also available. Call the office at [phone], option #5 for questions. documented in this encounterDetwiler Memorial Hospital09-23-2024 History of Present illness Narrative* Lexus Heck APRN.CNP - 02/14/2024 8:00 AM EDT Images from the original note were not included. [facility] Virtual Visit Follow up/ Established patient visit Date of last visit : 07/27/2022 I have communicated my name and active licensure. The patient's identity and physical location wereverified at the time of this visit. Either the patient or their legal auto claim representative has been informed of the risks [...] Return Visit in 6 months. Lexus Heck APRN.DIGITAL MEDIA ANALYST Interval history : Here for follow up for sleep apnea management. SLEEP APNEA Sleep apnea type : JOSE RAFAEL Most Recent Apnea-Hypopnea Index (AHI): 5.3 (HSAT scored 4 %) Treatment : PAP therapy DME: Josh [facility] fax: [phone] DME ph: [phone] PAP History: Current PAP settin-15 cm H2O. [...] are sorted in reverse-chronological order 04/12/2022 07/23/2022 [place] Sleepiness Scale Score 4 (No clinically significant [...] months. Lexus Heck APRN.TRUE documented in this encounterDetwiler Memorial Hospital09-18-2024 History of Present illness Narrative* Zita Cuellar NP - 02/09/2024 8:00 AM EDT Images from the original note were not included. CHIEF COMPLAINT REASON FOR VISIT : leg pain HPI: Ariadna Haley is a 43 y.o. female who presents for [facility] audiovisit. She is at home. She consents [...] Chronic laryngopharyngitis COVID-19 vaccine administered x 2 ([employer]) Difficulty walking Fatigue Fibromyalgia, primary GERD (gastroesophageal [...] Maternal Grandmother Clelagiovany Heart failure Maternal Grandmother Clelaura Rheum arthritis Maternal Grandmother Lisandro Depression: Not at risk (12/27/2023) Received from [facility] PHQ-2 PHQ-2 score: 1 REVIEW [...] patient, and coordinating care. documented in this encounterGolden Valley Memorial [id number] NoteHNO ID: [id number] Author: ALHAJI VICTORIA, DO Service: ? Author Type: Physician Type: Progress Notes Filed: 01/27/2024 16:54 Note Text: VIRTUAL VISIT PROGRESS NOTE This is a virtual visit using [employer] Video Visit. It required patient-provider interaction for the medical decision making as documented below. I have communicated my name and active licensure. The patient's identity and physical location were verified at the time of this visit. Either the patient or their legal auto claim representative has been informed of the risks [...] of green drainage. 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 This was thought to be secondary to [...] SOB/WHEEZING, and NO DYSPHAG (more content not included)...[facility]09-05-2024 History of Present illness Narrative* Alhaji Victoria, - 01/27/2024 10:10 AM EDT Images from the original note were not included. VIRTUAL VISIT PROGRESS NOTE This is a virtual visit using [employer] Zoom Video Visit. It required patient- provider interaction for the medical decision making as documented below. I have communicated my name and active licensure. The patient's identity and physical location wereverified at the time of this visit. Either the patient or their legal auto claim representative has been informed of the risks [...] of green drainage. 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 This was thought to be secondary to [...] thrush Alhaji Victoria DO documented in this encounterDetwiler Memorial Hospital09-03-2024 Nurse Note* Margret Cuenca MA - 01/25/2024 11:30 AM EDT Patient Identification confirmed: yes. Injection given and documented on JUL per provider order. Margret Cuenca MA [facility]09-03-2024 Nurse Note* Margret Cuenca MA - 01/25/2024 11:30 AM EDT Patient Identification confirmed: yes. Injection given and documented on JUL per provider order. Margret Cuenca MA documented in this encounterDetwiler Memorial Hospital08-27-2024 History of Present illness Narrative* [...] outcomes. Aidee Quintanilla PharmD Clinical Pharmacist, [employer] [facility] ; Pool: P [facility] Pool #: [id number] Customer Consulting Manager Assessment Patient confirmed: Yes Med/dose confirmed: Yes Supplies needed: No supplies needed Missed doses: No Estimated days supply on hand: (At least 1 dose) Next cycle/dose due: 01/20/24 Copay amount: 0 Payment confirmed: Yes Delivery method: FedEx Signature required: Waived on patient request Delivery address: [address] [place] [address] Delivery date: 01/21/24 Questions or concerns for [...] file prior to visit. [facility] RX SPECIALTY CLINICAL ASSESSMENT - [...] no longer tolerated. Arianne Mckinley CPhT, Inflammatory/Allergy [facility] [phone] documented in this encounterDetwiler Memorial Hospital08-21-2024 Telephone encounter Note * Telephone Encounter - Krista Braswell MA - 01/12/2024 10:45 AM EDT Pt has been notified via [employer]. [facility]08-21-2024 Miscellaneous Notes* Telephone Encounter - Krista Fonseca MA - 01/12/2024 10:45 AM EDT Pt has been notified via [employer]. * Telephone Encounter - Lynne Ni [...] Assoc. 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 Please process accordingly. Lynne Ni MD [facility]08-21-2024 Telephone encounter Note* Telephone Encounter [...] Lynne Ni MD Assoc. 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 [facility]08-08-2024 Miscellaneous Notes* Telephone Encounter - [...] vitamin b12 every month documented in this encounterDetwiler Memorial Hospital08-08-2024 Telephone encounter Note * Telephone [...] likely reactive, continue vitamin b12 every month [facility]08-05-2024 Telephone encounter Note* Telephone Encounter - Enma Hamm RN - 12/27/2023 12:49 PM EDT Pt informed of MM message and denies any questions, needs or concerns at this time. Appointments verified. Enma Hamm RN [facility]08-05-2024 Miscellaneous Notes* Telephone Encounter - Enma Hamm RN - 12/27/2023 12:49 PM EDT Pt informed of MM message and denies any questions, needs or concerns at this time. Appointments verified. Enma Hamm RN * Telephone Encounter - Neda Hill PA-C - 12/27/2023 12:44 PM EDT Please call and inform the patient that I reviewed her [facility] records and there is no evidence of a blood clot and she does not need to be on blood thinners. Neda Hill PA-C documented in this encounterDetwiler Memorial Hospital08-05-2024 Telephone encounter Note * Telephone Encounter - Neda Hill PA-C - 12/27/2023 12:44 PM EDT Please call and inform the patient that I reviewed her [facility] records and there is no evidence of a blood clot and she does not need to be on blood thinners. Neda Hill PA-C [facility] Work Phone: [phone] Nurse Note* Margret Cuenca MA - 12/27/2023 11:44 AM EDT Patient Identification confirmed: yes. Injection given and documented on MAR per provider order. Margret Cuenca MA [facility]08-05-2024 Nurse Note* Margret Cuenca MA - 12/27/2023 11:44 AM EDT Patient Identification confirmed: yes. Injection given and documented on MAR per provider order. Margret Cuenca MA documented in this encounterDetwiler Memorial Hospital08-05-2024 History of Present illness Narrative* Neda Hill PA-C - 12/27/2023 11:30 AM EDT Images from the original note were not included. NAME: Ariadna Haley CLINIC NO.: [id number] DATE OF SERVICE: December 27, 2023 (Liz) [...] labs 1 week before. Request records from [facility] from PE/elevated d-dimer Frequent infections and [...] injections. Shefollows with multiple doctors including and leader writer, pantograph transferrer, air traffic control specialist center and PCP. She has been told they [...] which included preparing to see the patient, [id number] patient care, completing clinical documentation, obtaining and/or reviewing separately obtained history, performing a medically appropriate examination, counseling and educating the pat ient/family/caregiver, ordering medications, tests, or procedures, communicating with other HCPs (not separately reported), independently interpreting results (not separately reported), communicatingresults to the patient/family/caregiver, and care coordination (not separately reported). Neda Hill PA-C Hematology and Oncology Services Provided at: [place], [place] CC: Manuel Ferris MD [address] [facility] [address] documented in this encounterDetwiler Memorial Hospital07-22-2024 History of Present illness Narrative* Elton (Textile Artist)Luda - 12/13/2023 11:44 AM EDT [facility] [...] laboratory parameters, disease state markers and outcomes. Customer Consulting Manager Assessment Patient confirmed: Yes Med/dose confirmed: Yes Missed doses: No Estimated days supply on hand: 1 Next cycle/dose due: 12/16/23 Copay amount: 0 Payment confirmed: Yes Delivery method: FedEx Signature required: Waived on patient request Delivery address: [address] [place] [address] Delivery date: 12/17/23 Questions or concerns for [...] file prior to visit. [facility] RX SPECIALTY CLINICAL ASSESSMENT - INFLAMMATORY CONDITIONS V6: Assessment to use: Refill [facility] VACCINE INFORMATION [facility] TREATMENT PLAN INFORMATION Luda Conde CPhT [facility] [phone] documented in this encounterDetwiler Memorial Hospital07-08-2024 Nurse Note* Stacy Gutiérrez MA - 11/29/2023 1:47 PM EDT Patient Identification confirmed: yes. Injection given and documented on JUL per provider order. Stacy Gutiérrez MA [facility]07-08-2024 Nurse Note* Stacy Gutiérrez MA - 11/29/2023 1:47 PM EDT Patient Identification confirmed: yes. Injection given and documented on JUL per provider order. Stacy Gutiérrez MA documented in this encounterDetwiler Memorial Hospital07-05-2024 Telephone encounter Note * Telephone Encounter - Katherin Schneider RN - 11/26/2023 11:34 AM EDT Please sign pended script Maryam Schneider RN [facility]07-05-2024 Miscellaneous Notes* Telephone Encounter - Katherin Schneider RN - 11/26/2023 11:34 AM EDT Please sign pended script Maryam Schneider RN documented in this encounterDetwiler Memorial Hospital06-24-2024 History of Present illness Narrative* Aidee Quintanilla, [facility] - 11/15/2023 1:00 PM EDT [...] laboratory parameters, disease state markers and outcomes. Customer Consulting Manager Assessment Patient confirmed: Yes Med/dose confirmed: Yes Missed doses: No Estimated days supply on hand: 1 Next cycle/dose due: 11/18/23 Copay amount: 0 Payment confirmed: Yes Delivery method: FedEx Signature required: Waived on patient request Delivery address: [address] [place] [address] [address]. [place], [place] Delivery date: 11/17/23 Questions or concerns [...] facility-administered medications on file prior to visit. [facility] Visit Assessment - [...] Yes Aidee Quintanilla PharmD Clinical Pharmacist, [employer] [facility] ; Pool: P [facility] Pool #: [id number] documented in this encounterDetwiler Memorial Hospital06-20-2024 Telephone encounter Note * Telephone [...] above. Please process accordingly. Lynne Ni MD [facility]06-20-2024 Miscellaneous Notes* Telephone Encounter - [...] [SQSERFOL] 12/02/23 09/08/24 09/09/23 Auth. provider: Vera Najrea MD Assoc. diagnoses: Megaloblastic anemia due to [...] High total serum IgM documented in this encounterDetwiler Memorial Hospital06-20-2024 Telephone encounter Note * Telephone [...] vitamin B12 deficiency, High total serum IgM [facility]06-06-2024 Telephone encounter Note* Telephone Encounter - Karina Morales RN - 10/28/2023 1:33 PM EDT Pt read [employer] message. [facility]06-06-2024 Miscellaneous Notes* Telephone Encounter - Karina Morales RN - 10/28/2023 1:33 PM EDT Pt read [employer] message. * Telephone Encounter - Lynne [...] soon! Warm regards, :) documented in this [facility]Det[facility] Telephone encounter Note * Telephone [...] you feel better soon! Dr.Tsai Harshal :) [facility] Nurse Note* Margret Cuenca MA - 10/27/2023 2:43 PM EDT Patient Identification confirmed: yes. Injection given and documented on JUL per provider order. Margret Cuenca MA [facility]06-05-2024 Nurse Note* Margret Cuenca MA - 10/27/2023 2:43 PM EDT Patient Identification confirmed: yes. Injection given and documented on JUL per provider order. Margret Cuenca MA documented in this encounterDetwiler [facility] Hospital05-14-2024 History of Present illness Narrative* [...] visit. 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, see primary care provider for recurrent flank pain/UTIs, improved with plaquenil 2tabs daily, start photoprotection, see ophthalmology, steroids/prednisone 10mg daily/ per p [place] care provider/try weaning off, see derm/?eval recurrent boils, see spine/pain clinic/improved with lyrica/may increase if needed, see derm, start prn heat/ice/otc arthritis creams, low impact weightbearing exercise as tolerated, see neurology/on metoprolol for POTs, avoid aggravating triggers, mcc pain recommendations per primary care provider/pain clinic/patient [...] neurology/on metoprolol for POTs, avoid aggravating triggers, predatory animal exterminator pain recommendations per primary care provider/pain [...] Due for eye exam. Labs sent to [facility]/completed in 06/2021 (no results faxed to office, but patient pulled up results on her phone). Chronic current pain in neck, flank area, mid back, knees, legs, arms, all over pain. Better with lyrica 75mg 3times a day. Reports pain 4-10. Couple hrs AM stiffness. COVID vaccine Pfizer [...] pain: yes H/o precedent/frequent infection(s): as above Enthesopathy/[place]'s/heel/plantar tenderness: hands random painful/tingling Skin thickening, psoriasis, [...] COVID-19 original vaccine, age 12+ yr, monovalent ([employer] - PURPLE TOP) 09/28/2020 10/19/2020 05/26/2021 COVID-19 vaccine, age 12+ yr, 2022- season ([employer]) 02/23/2023 COVID-19 vaccine, age 12+ yr, bivalent ([employer]) 02/08/2022 Pneumovax no Flu shot no Tetanus [...] (33);NL cbc, cmp, negative hla b27; Outside [place] 06/2021 low vitamin D 16, vitamin b12-307;high [...] measures, may consider osteoporosis treatment if on predatory animal exterminator steroids/abnormal bmd, take vitamin D script [...] neurology/on metoprolol for POTs, avoid aggravating triggers, predatory animal exterminator pain recommendations per primary care provider/pain [...] (200mg) daily with a meal Please see joint yarner every 6-12months while on Hydroxychloroquine. Start azathioprine [...] touching your toes, sit-ups, using row machine mcc pain recommendations per primary care provider/pain clinic [...] video & audio (virtual) or phone or qthl-ot-dkff patient care, completing clinical documentation, obtaining and/or [...] Workers' Compensation? No Do you need an it senior analyst? No [facility] MYCHART ZOOM MESSAGE Question 2023 11:04 [...] SLAQ Score (range: 0 - 47) 15 [facility] PROVIDER UNDERSTANDING CURRENT HEALTH RHEUMATOLOGY Question 2023 [...] 3 (WITHIN +/- 5) documented in this encounterDetwiler [facility] Hospital05-09-2024 Nurse Note* Renea Schneider MA - 09/30/2023 10:53 AM EDT Patient Identification confirmed: yes. Injection given and documented on JUL per provider order. Renea Schneider MA [facility]05-01-[facility]24 Evaluation note* Author Ketty Mccall [facility] HospitalAuthoredMay 2023 [id number] female referred to the gastroenterology clinic for [...] switch omeprazole to pantoprazole and monitor symptoms [facility] Work Phone: 1(662) 870-428704-18-2024 Instructions* Patient Instructions* Vera Najera MD - 09/09/2023 4:47 PM EDT Follow up in 13 Weeks - labs 1 week before. B12 shot every 4 weeks. Continue Folic acid. documented in this encounterDetwiler [facility] Hospital04-18-2024 History of Present illness Narrative* Vera Najera MD - 09/09/2023 4:30 PM EDT NAME: Ariadna Haley [facility] NO.: [id number] DATE OF SERVICE: September 09, 2023 ([place]) Some elements in this clinic note that are critical to medical decision making have been carefully reviewed and included from a prior clinic note dated: June 10, 2023 ([facility]) Referring Provider: Dr. Manuel Ferris Additional Clinicians involved in Ariadna Haley's care: VIRTUAL VISIT PROGRESS NOTE This is a virtual visit using [employer] Video Call. It required patient- provider interaction for the medical decision making as documented below. I have communicated my name and active licensure. The patient's identity and physical location wereverified at the time of this visit. Either the patient or their legal auto claim representative has been informed of the risks [...] injections. Shefollows with multiple doctors including and leader writer, pantograph transferrer, air traffic control specialist center and PCP. She has been told they [...] CPE Hematology and Oncology Services Provided at: [place], [place] CC: Manuel Ferris MD [address] [facility] [address] documented in this encounterDetwiler [facility] Hospital04-15-2024 Miscellaneous Notes* Telephone Encounter - Maynor Bryson MA - 09/06/2023 7:21 AM EDT patient has viewed the [employer] message per [employer]. * Telephone Encounter - Lynne Ni MD - 09/04/2023 6:30 PM EDT Please Call patient if Carbonlights Solutionshart note not read to review results/released to [...] accordingly. Lynne Ni MD documented in this [facility]04-09-2024 Nurse Note* Margret Cuenca MA - 08/31/2023 10:35 AM EDT Patient Identification confirmed: yes. Injection given and documented on MAR per provider order. Margret Cuenca MA documented in this [facility]04-01-20[facility] Nurse Note* Renea Schneider MA - 09/30/2023 10:53 AM EDT Patient Identification confirmed: yes. Injection given and documented on MAR per provider order. Renea Schneider MA documented in this [facility]03-14-2024 Nurse Note* Margret Cuenca - 08/05/2023 11:16 AM EDT Patient Identification confirmed: yes. Injection given and documented on JUL per provider order. Margret Cuenca documented in this [facility]-20-[facility] Nurse Note* Margret Cuenca - 07/13/2023 12:01 PM EST Patient Identification confirmed: yes. Injection given and documented on MAR per provider order. Margret Cuenca documented in this [facility]-20-[facility] History of Present illness Narrative* Lois [...] and is being cared for at the [facility] utilizing steroids, Plaquenil and injectable medic ation(Benlystal). The patient record indicating having had cardiac catheterization in [place] 3 years ago which was normal. I have the report available for my review. [facility] [...] lupus being treated by rheumatology at the [facility] on steroids, Plaquenil and monoclonal antibody [...] , Rfl: ergocalciferol (Vitamin D-2) 1.25 MG (11626 UT) capsule, Take 1 capsule (50,000 Units) [...] signing my name below, I, [email or web address] , Orionibe attest that this documentation has been prepared [...] exam, discussion and plan. documented in this encounterWVUMed[facility] Work Phone: 1(326) 253-885402-20-2024 Instructions* Patient Instructions* Lila Tejeda LPN - [...] time of your visit. documented in this encounterWVUMedicine [facility] Work Phone: 1(632) 794-778502-13-2024 History of Present illness Narrative* Kade Early [...] , Rfl: ergocalciferol (Vitamin D2) 1.25 MG (88484 UT) capsule, Take 50,000 Units by mouth [...] Chronic laryngopharyngitis COVID-19 vaccine administered x 2 ([employer]) History of removal of cyst 2013 tailbone [...] reflexes: Stu's absent. Ankle clonus absent. Coordination Rlydnr-zr-wmnt, rapid alternating movements and wtvi-wm-bbjb normal bilaterally without dysmetria. Gait Normal casual, toe, heel and tandem gait. Romberg is absent. Assessment/Plan Diagnoses and all orders for this visit: Autoimmune disease ([facility]) - Protein electrophoresis, serum; Future - [...] Lyrica 100 mg TID. She is on hxetdkjkou67 mg once daily. Increase prednisone 10 mg BID for 10 days. documented in this encounterGolden Valley Memorial [id number] History of Present illness Narrative* Michelle London Mitali, MICROBIOLOGY TECHNICIAN-DIGITAL MEDIA ANALYST - 06/09/2023 8:30 AM EST Ariadna Haley is a 42 y.o. female that presents to the office today for new patient evaluation asself referral for palpitations and elevated heart rates. She has a PMH of HTN, HLD, tachycardia, anemia, JOSE RAFAEL with CPAP compliance, lupus, autonomic dysfunction, arthritis, chronic back pain. She has undergone cardiac workup in the past in [place] as noted below. She also states that she follows withNeurology for possible POTS syndrome. Admits to daily tobacco use, 1 pack of cigarettes per day. Denies vaping, ETOH, recreational drugs. Admits to drinking approximately 1 pot of coffee per day. Denies daily exercise. 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 Family history negative [...] , Rfl: ergocalciferol (Vitamin D-2) 1.25 MG (47877 UT) capsule, Take 1 capsule (50,000 Units) [...] Anemia, unspecified Anxiety Autonomic dysfunction Depression, recurrent ([facility]) Discoid lupus erythematosus Chronic bilateral low back pain with bilateral sciatica Hyperlipidemia Obesity, Class III, BMI 40-49.9 (morbid obesity) ([facility]) Obstructive sleep apnea syndrome Arthritis Tachycardia [...] prepare this document. documented in this [facility] Work Phone: 1(173) 604-800301-03-2024 Instructions* Patient Instructions* Christie Phan MD - 05/26/2023 5:43 PM EST Images from the original note were not included. https://Ameriprime/tofu-bolognese/ https://nutritionstudies.org/jht-ma-sjbxhsuhw-nbhpshwh-av-krzpj-d-fwiaf-mhws-randee xm-kbadu-enozyrluh/ https://www.Attune/blog/plantbasedkids https://Clinical Data/mgtyd-fhtbt-lths-for-kids/ https://Pastry Group/cpc-og-wxjdoqxfoq-mryt-ulbj-iq-g-iessu-raxbh-diet/ WHAT TO EAT? Breakfast: Overnight Oats Base ingredients: 1/3 cup rolled oats, 1/3 cup plain almond milk, 1tsp kyle seeds. Optional add-ins: cinnamon, flax seeds, honey or maple syrup, nut butter, chopped nuts. Toppings: Any fresh fruit chopped. Mix together and place in refrigerator. Can make 5 at a time for the whole week. Homemade fresh oatmeal. Can also make in the crockpot. Luxembourger muffin/almond butter topped with fresh berries Luxembourger muffin, cooked egg/egg white, tomato, thin slice estonian cheese Fresh berries, hard boiled egg, whole wheat toast Plain yogurt topped with berries, unsalted nuts, drizzle of honey Whole grain toast/Luxembourger muffin topped with mashed avocado and tomatoes Lunch: Dinner leftovers packed in Tupperware, side of fruit Salad mixture topped with a protein (chick breast/tuna/hard boiled egg/beans), dressing and side offruit Dinner - Refer to plate naval surface [...] grain rice. Make your own bowls - Stateless/Barbadian/ theme [place] with Zoodles (spiralized vegetable noodles). Roasted vegetable wraps Alter traditional recipes to reflect HIGH QUALITY ingredients in the right QUANTITIES. Snacks - portion controlled: Raw veggies (can have with hummus, mashed avocado, salsa). Unsalted nuts Fruit (1 serving). (optional side of peanut butter) Air pop popcorn [place] and low fat estonian cheese rolled up String cheese Protein balls [...] baked potato, sprouted grain bread, chick peas https://www.Rackspace.com/article/1094827/iyfjnwjygubmh-isci-rcer-for-beginners / https://www.Rackspace.com/category/4274/hxvpungfblqli-pcie-trrelf/ https://www.Rackspace.com/category/4300/pltsutawajivd-cdlp-cfve-plans/ My current favorite cookbooks are documented in this encounterDetwiler [facility]01-03-2024 History of Present illness Narrative* Christie Phan MD - 05/26/2023 5:00 PM EST Images from the original note were not included. [facility] Follow-Up Appointment [...] the date of the service which included qitg-ou-riyt patient care, completing clinical documentation, performing a medically appropriate examination, counseling and educating the patient/family/caregiver, and ordering medications, tests, or procedures. Christie Phan MD, MA, [facility] Lifestyle Medicine Specialist documented in this encounterDetwiler Memorial Hospital12-04-2023 Miscellaneous Notes* Telephone Encounter - Renate Lawrence MA - 04/26/2023 5:26 PM EST Medication pending with new pharmacy information. documented in this encounterDetwiler Memorial Hospital12-04-2023 History of Present illness Narrative* Christie Phan MD - 04/26/2023 4:15 PM EST Images from the original note were not included. [facility] Virtual Follow-Up [...] the date of the service which included yhsn-uf-qref patient care, completing clinical documentation, performing a medically appropriate examination, counseling and educating the patient/family/caregiver, and ordering medications, tests, or procedures. I have communicated my name and active licensure. The patient's identity and physical location wereverified at the time of this visit. Either the patient or their legal auto claim representative has been informed of the risks and benefits of -- and alternatives to -- treatment through a remote evaluation andconsents to proceed with the evaluation remotely. Christie Phan MD, MA, [facility] Lifestyle Medicine Specialist documented in this encounterDetwiler Memorial Hospital12-04-2023 Nurse Note* Renate Lawrence MA - 04/26/2023 2:46 PM EST Spoke to Ariadna Haley, confirmed patient is registered on [employer] and is prepared for their appointment. Confirmed the patient has updated medications, allergies, and questionnaires via [employer]. Informed patient if there is an issue with the connection, provider will send the patient a secure link. If provider is running late, patient should remain connected to the visit. Patient verbalized understanding. documented in this [facility]11-30-2023 Miscellaneous Notes* Telephone Encounter - Enma Hamm, RN - 04/22/2023 3:48 PM EST Pt called for Iron results; possible need for transfusion. Pt aware no need for iron infusion at this time. Enma Hamm, RN documented in this [facility]11-24-[facility]23 History of Present illness Narrative* Kenzie Shannon - 04/16/2023 10:55 AM EST Patient Identification confirmed: yes. Injection given and documented on JUL per provider order. Kenize Shannon documented in this [facility]10-27-[facility] History of Present illness Narrative* Kenzie Shannon - 03/19/2023 11:06 AM EDT Patient Identification confirmed: yes. Injection given and documented on JUL per provider order. Kenzie Shannon documented in this [facility] History of Present illness Narrative* Marija Ziegler - 03/16/2023 10:13 AM EDT CMN RECEIVED BY [employer] VIA FAX, COMPLETED, AND PLACED IN PROVIDER MAILBOX FOR SIGNATURE On 2022 By Marija Ziegler Cardiology Associate II. [employer] SENDING CMN: JOSH SIGNED AND DATED CMN, FAXED TO DME & CONFIRMATION PAGE RECEIVED: 03.24.23 documented in this [facility]-19[facility] History of Present illness Narrative* Beatriz [...] LPN In Department: RHEUMATOLOGY documented in this encounterDetwiler [facility] Hospital10-18-2023 Miscellaneous Notes* Telephone Encounter - Christie Phan MD - 03/10/2023 2:18 PM EDT Spoke with patient. We stopped her trulicity because of side effects. She only took the cymbalta for a week. She will restart and we will see how she is doing in 2 months. Have also ordered insulin labs to check for insulin resistance. documented in this encounterDetwiler [facility] Hospital10-09-2023 Miscellaneous Notes* Telephone Encounter - Lynne Ni MD - 03/01/2023 3:27 PM EDT For chart: Eye exam 02/26/23 no ocular complication related to medication. * Telephone Encounter - Beatriz Sanchez LPN - 03/01/2023 2:38 PM EDT Received eye exam from [facility] on your desk for review. documented in this encounterDetwiler Memorial Hospital09-29-2023 Nurse Note* Radha Kebede MA - 02/19/2023 11:48 AM EDT Patient Identification confirmed: yes. Injection given and documented on JUL per provider order. Radha Schofield MA documented in this encounterDetwiler Memorial Hospital09-29-2023 Instructions* Patient Instructions* Vera Najera MD - 02/19/2023 11:40 AM EDT B12 shot today and every 4 weeks. Continue Folic acid. Follow up in 8 Weeks - labs 1 week before. documented in this encounterDetwiler [facility] Hospital09-29-2023 History of Present illness Narrative* Vera Najera MD - 02/19/2023 11:32 AM EDT Images from the original note were not included. AMBULATORY TELEPHONE VISIT Ariadna B hugo has consented to this telephone encounter. Persons Present: Patient and myself Chief Complaint/Reason: Anemia; To review recent blood work. HPI: Total Time Spent: 21 minutes Rebekah Rojas APRN.DIGITAL MEDIA ANALYST NAME: Ariadna Haley CLINIC NO.: [id number] DATE OF SERVICE: February 19, 2023 ([place]) [...] injections. Shefollows with multiple doctors including and leader writer, pantograph transferrer, air traffic control specialist center and PCP. She has been told they [...] which included preparing to see the patient, adnm-mj-diqm patient care, completing clinical documentation, performing a medically appropriate examination, counseling and educating the patient/family/caregiver, ordering medications, tests, or p rocedures, and independently interpreting results (not separately reported). Vera Najera MD, CPE Hematology and Oncology Services Provided at: [place], [place] CC: Manuel Ferris MD [address] [facility] [address] documented in this encounterDetwiler Memorial Hospital09-26-2023 Miscellaneous Notes* Telephone Encounter - [...] RAYRAY INJECTION TEACHING 03/11/2023 7:30 AM [facility] VIDEO SPEC EST 08/12/2023 9:[address] [facility] Last Ophthalmology Check for Plaquenil [...] diagnoses: Vitamin D deficiency documented in this encounterDetwiler Memorial Hospital09-18-2023 Miscellaneous Notes* Telephone Encounter - Mirela Carlos - 02/08/2023 11:12 AM EDT Spoke with patient Will get labs done when she does labs in Dec for [place]/Onc Mailed orders for DXA to pt so she can go to [facility] Pre cert Benlyst Scheduled Teaching [...] accordingly. Lynne Ni MD documented in this encounterDetwiler Memorial Hospital09-14-2023 History of Present illness Narrative* Carlene Rendon - 02/04/2023 9:31 AM EDT [facility](s) for Benlysta from Dr. Ni. Benefits investigation was conducted, indicating that a prior authorization is required by patients plan with [facility]. Encounter will be updated once prior authorization has been submitted by [facility]. Carlene Rendon CPhT [facility], Inflammatory P: [phone] F: [phone] documented in this encounterDetwiler Memorial Hospital09-14-2023 History of Present illness Narrative* [...] visit. Either the patient or their legal auto claim representative has been informed of the risks [...] neurology/on metoprolol for POTs, avoid aggravating triggers, mcc pain recommendations per primary care provider/pain clinic/patient [...] 4-8/10. Couple hrs AM stiffness. COVID vaccine [employer] 09/28/20, 10/19/20, 05/26/21. Feels safe at home. 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 RECOMMENDATION/PLAN: [facility] on 02/04/23 DXA-AXIAL SKELETON DXA-FOREARM SKELETON [...] (200mg) daily with a meal Please see joint yarner every 6-12months while on Hydroxychloroquine. Start azathioprine [...] touching your toes, sit-ups, using row machine mcc pain recommendations per primary care provider/pain clinic [...] video & audio (virtual) or phone or eoia-vw-oeoy patient care, completing clinical documentation, obtaining and/or [...] medical records. cc Gay De La Torre CNP;MD ISABEL Maria AMBULATORY VISIT INTAKE QUESTIONNAIRE [...] Workers' Compensation? No Do you need an it senior analyst? No [facility] MYCHART ZOOM MESSAGE Question 02/02/2023 10:32 [...] Yes Memory Loss: No Swollen Glands: Yes [facility] SLAQ QUESTIONNAIRE Question 02/02/2023 10:38 PM EDT [...] SLAQ Score (range: 0 - 47) 24 [facility] PROVIDER UNDERSTANDING CURRENT HEALTH RHEUMATOLOGY Question 02/02/2023 [...] < or = 5) documented in this encounterDetwiler [facility] Hospital09-14-2023 Instructions* Patient Instructions* Lynne Ni [...] (200mg) daily with a meal Please see joint yarner every 6-12months while on Hydroxychloroquine. azathioprine daily [...] touching your toes, sit-ups, using row machine mcc pain recommendations per primary care provider/pain clinic [...] your usual activities immediately. documented in this encounterDetwiler [facility] Hospital09-05-2023 Miscellaneous Notes* Telephone Encounter - Maynor Bryson MA - 01/26/2023 7:46 AM EDT patient has viewed the [employer] message per [employer]. * Telephone Encounter - Lynne Ni MD - 01/24/2023 8:04 PM EDT Please Call patient if [employer] note not read to review results/released to My Chart if tests completed at [facility]: mildly high normal wbc- will monitor. Mildly [...] accordingly. Lynne Ni MD documented in this encounterDetwiler Memorial Hospital09-01-2023 Nurse Note* Radha Kebede MA - 01/22/2023 12:17 PM EDT Patient Identification confirmed: yes. Injection given and documented on JUL per provider order. Radha Schofield MA documented in this encounterDetwiler Memorial Hospital08-22-2023 Miscellaneous Notes* Telephone Encounter - [...] the above prescription(s) to electronically send to [facility] pharmacy. Milagro Mendiola MA documented in this encounterDetwiler Memorial Hospital08-11-2023 History of Present illness Narrative* iMsty Nelson MD - 01/01/2023 10:51 AM EDT VIRTUAL VISIT PROGRESS NOTE This is a virtual visit using [employer] video visit. It required patient-provider interaction for themedical decision making as documented below. I have communicated my name and active licensure. The patient's identity and physical location wereverified at the time of this visit. Either the patient or their legal auto claim representative has been informed of the risks [...] otitis or sinusitis No pneumonia She sees pantograph transferrer and was diagnosed with lupus She is on Plaquenil, azathioprine Prednisone 10mg once daily for the past year; every few months she gets treated with higher doses of prednisone for flares of her symptoms The medications seem to help the body aches She saw the wood last maker Treated with B12 and folic acid We [...] visit. Misty Nelson MD documented in this encounterDetwiler [facility]07-28-2023 Miscellaneous Notes* Telephone Encounter - Rebekah Rojas APRN.CNP - 12/18/2022 10:48 AM EDT Spoke with patient this morning, 12/18/2022. Rebekah Rojas APRN.TRUE * Telephone Encounter - Lidia Argueta RN - 12/18/2022 9:31 AM EDT Pt called automobile relocation engineer service last evening stating she was suppose to have a phone call with Rebekah at 330 and never received a call. Pt is still waiting (536 pm 12/17/22). Please advise Lidia Argueta RN documented in this encounterDetwiler [facility] Hospital07-28-2023 History of Present illness Narrative* [...] Total Time Spent: 21 minutes Rebekah Rojas APRN.DIGITAL MEDIA ANALYST NAME: Tera Ariadna CLINIC NO.: [id number] DATE OF SERVICE: October 22, 2022 ([place]) [...] injections. Shefollows with multiple doctors including and leader writer, pantograph transferrer, air traffic control specialist center and PCP. She has been told they [...] which included preparing to see the patient, hkms-ot-yqry patient care, completing clinical documentation, performing a medically appropriate examination, counseling and educating the patient/family/caregiver, ordering medications, tests, or p rocedures, and independently interpreting results (not separately reported). Vera Najera MD, CPE Hematology and Oncology Services Provided at: [place], [place] CC: Manuel Ferris MD [address] [facility] [address] documented in this encounterDetwiler [facility] Hospital07-26-2023 Miscellaneous Notes* Telephone Encounter - Pamella Bettencourt RN - 12/16/2022 1:14 PM EDT Pt notified and verbalizes understanding. Clerical: Please change tomorrow's appointment to a phone visit at the end of Rebekah's day. Preferred number is [phone]. In addition, pt will be in next 12/25/22 @ 1130 for her B12 shot. Please add her to the MA schedule. Thanks! Pamella Bettencourt RN * Telephone Encounter - Rebekah Rojas APRN.TRUE - 12/16/2022 12:56 PM EDT That would be okay. Have her added at the end of the day. Thanks, Rebekah Rojas APRN.DIGITAL MEDIA ANALYST * Telephone Encounter - Pamella Bettencourt RN [...] schedule? Pamella Bettencourt RN documented in this encounterDetwiler [facility] Hospital07-23-2023 Miscellaneous Notes* Telephone Encounter - [...] advise Enma Hamm RN documented in this encounterDetwiler Memorial Hospital07-04-2023 Miscellaneous Notes* Telephone Encounter - [...] accordingly. Lynne Ni MD documented in this encounterDetwiler Memorial Hospital06-29-2023 Nurse Note* Margret Cuenca - 11/19/2022 11:01 AM EDT Patient Identification confirmed: yes. Injection given and documented on MAR per provider order. Margret Cuenca documented in this encounterDetwiler Memorial Hospital06-01-2023 Nurse Note* Stacy Gutiérrez Ma - 10/22/2022 11:50 AM EDT Patient Identification confirmed: yes. Injection given and documented on MAR per provider order. Stacy Gutiérrez Ma documented in this encounterDetwiler Memorial Hospital06-01-2023 Instructions* Patient Instructions* Vera Najera MD - 10/22/2022 11:43 AM EDT B12 Shot today and every 4 weeks. Continue Folic acid. Follow up in 8 Weeks - labs 1 week before. documented in this encounterDetwiler Memorial Hospital06-01-2023 History of Present illness Narrative* Vera Najera MD - 10/22/2022 11:35 AM EDT Images from the original note were not included. NAME: Tera Ariadna [facility] NO.: [id number] DATE OF SERVICE: October 22, 2022 ([place]) [...] injections. Shefollows with multiple doctors including and leader writer, pantograph transferrer, air traffic control specialist center and PCP. She has been told they [...] which included preparing to see the patient, hign-dj-btpj patient care, completing clinical documentation, performing a medically appropriate examination, counseling and educating the patient/family/caregiver, ordering medications, tests, or p rocedures, and independently interpreting results (not separately reported). Vera Najera MD, CPE Hematology and Oncology Services Provided at: [place], [place] CC: Manuel Ferris MD [address] [address] documented in this encounterDetwiler [facility] Hospital05-04-2023 Nurse Note* Stacy Gutiérrez Ma - 09/24/2022 10:22 AM EDT Patient Identification confirmed: yes. Injection given and documented on JUL per provider order. Stacy Gutiérrez Ma documented in this encounterDetwiler Memorial Hospital04-18-2023 Miscellaneous Notes* Telephone Encounter - Stacy Hernandez - 09/08/2022 2:27 PM EDT Pharmacy-Reviewed Medication History Patient Name:.Ariadna Haley : 1980 Patient Contact Attempt: First attempt Adherence Packing Program Accepted? No, patient does not wish to participate. Patient is not eligible for adherence packaging because PCP is not within [facility]. Patient wishes to continue at [facility] since medication bottles will look the same and then she can pick-up the medications when she needs them. Stacy Hernandez September 08, 2022 2:28 PM [facility] [phone] documented in this encounterDetwiler Memorial Hospital04-17-2023 History of Present illness Narrative* Christie Phan MD - 09/07/2022 2:00 PM EDT Images from the original note were not included. [facility] Virtual Follow-Up [...] which included preparing to see the patient, wiww-gc-fxak patient care, completing clinical documentation, performing a medically appropriate examination, counseling and educating the patient/family/caregiver, ordering medications, tests, or p rocedures, and communicating with other HCPs (not separately reported). I have communicated my name and active licensure. The patient's identity and physical location wereverified at the time of this visit. Either the patient or their legal auto claim representative has been informed of the risks and benefits of -- and alternatives to -- treatment through a remote evaluation andconsents to proceed with the evaluation remotely. Christie Phan MD, MA, [facility] Lifestyle Medicine Specialist documented in this encounterDetwiler Memorial Hospital04-17-2023 Nurse Note* Milagro Mendiola MA - 09/07/2022 2:00 PM EDT Called pt to do intake for video visit pt unavailable lft vm msg sent my chart. Milagro Mendiola MA documented in this encounterDetwiler Memorial Hospital04-10-2023 Miscellaneous Notes* Telephone Encounter - Shantel Higgins MA - 08/31/2022 8:38 AM EDT called [facility] pharmacy - pharmacy had 1 refill remaining no action needed from our office documented in this encounterDetwiler Memorial Hospital04-06-2023 Nurse Note* Stacy Gutiérrez Ma - 08/27/2022 10:31 AM EDT Patient Identification confirmed: yes. Injection given and documented on JUL per provider order. Stacy Gutiérrez Ma documented in this encounterDetwiler Memorial Hospital04-06-2023 History of Present illness Narrative* Rebekah Rojas APRN.TRUE - 08/27/2022 10:00 AM EDT Images from the original note were not included. NAME: Ariadna Haley [facility] NO.: [id number] DATE OF SERVICE: August 27, 2022 (Bob) [...] injections. Shefollows with multiple doctors including and leader writer, pantograph transferrer, air traffic control specialist center and PCP. She has been told they [...] stomach other (Crohn's [Other]) Mother Rebekah Rojas, MICROBIOLOGY TECHNICIAN.DIGITAL MEDIA ANALYST Hematology and Oncology Services Provided at: [place], [place] CC: Manuel Ferris MD [address] [facility] [address] I spent a total of 30 minutes on the date of the service which included preparing to see the patient, virl-om-oevc patient care, completing clinical documentation, obtaining and/or reviewing separately obtained history, performing a medically appropriate examination, counseling and educating the pat ient/family/caregiver, ordering medications, tests, or procedures, independently interpreting results (not separately reported), and communicating results to the patient/family/caregiver. documented in this encounterDetwiler Memorial Hospital03-29-2023 Miscellaneous Notes* Telephone Encounter - [...] low vitamin b12- take over the counter 9698-4039 mcg daily. Improved/ normal rest of rheum [...] accordingly. Lynne Ni MD documented in this encounterDetwiler Memorial Hospital03-28-2023 Miscellaneous Notes* Telephone Encounter - [...] accordingly. Lynne Ni MD documented in this encounterDetwiler Memorial Hospital03-20-2023 Miscellaneous Notes* Telephone Encounter - Christie Phan MD - 08/10/2022 9:46 AM EDT [facility] requesting refill, patient never started according to the chart and I have not seen her in follow-up. * Telephone Encounter - Jami Everett Cma - 08/10/2022 7:40 AM EDT [facility] Pharmacy request for the following refill(s): Requested Prescriptions Pending Prescriptions Disp Refills DULoxetine (CYMBALTA) 20 mg capsule [Pharmacy Med Name: DULOXETINE HCL DR 20 MG CAP] 30 capsule 2 Sig: TAKE 1 CAPSULE BY MOUTH ONCE DAILY Please review and advise. Jami Everett Cma documented in this encounterDetwiler Memorial Hospital03-06-2023 Instructions* Patient Instructions* Lexus Heck [...] treatment, there are resources available at the [facility] such as a nutrition consultation or referral to weight management programs at our [facility]. Please let us know if we can assist with a referral. - Continue CPAP at 5-15 cmH2O. - Remember to clean your mask and equipment regularly, as directed. - You should be eligible for new supplies approximately every 3-6 months, depending on your insurance coverage. Contact your [facility] [employer] ([employer] company for new supplies. -Your insurance requires [...] the central scheduling system for the [facility] at [phone]. [employer] now offers direct scheduling for patients to schedule appointments. Virtual visits are also available. If not covered by your insurance, there is a 35% discount. Please contact your insurance to determine coverage. Call the office at [phone], option #5 for questions. documented in this encounterDetwiler Memorial Hospital03-06-2023 History of Present illness Narrative* Lexus Heck APRN.CNP - 07/27/2022 10:30 AM EST Images from the original note were not included. [facility] Virtual Visit [...] will have a prescription sent to a [employer] medical [employer]) company - [employer] who will be calling you in the [...] Tips for good sleep hygiene shared in [employer]. - Follow up in 2 months in the office. Recommend scheduling this appointment now to ensure the besttime for you. [facility] on 04/13/22 CONSULT TO SLEEP MEDICINE - ADULT CPAP/BIPAP/OTHER PAP THERAPY ORDER Lawanda Miranda MD Interval history : Here for follow up for sleep apnea management. SLEEP APNEA Sleep apnea type : JOSE RAFAEL Most Recent Apnea-Hypopnea Index (AHI): 5.3 Treatment : PAP therapy DME: Josh MOJICA fax: [phone] [facility] ph: [phone] PAP History: Current PAP settin-15 cm H2O. [...] or near accidents due to drowsy drivin [place] Sleepiness Scale 04/12/2022 07/23/2022 Score 4 (No [...] medications, tests, or procedures. documented in this encounterDetwiler Memorial Hospital03-03-2023 Miscellaneous Notes* Telephone Encounter - [...] complete patient specific tasks. documented in this [facility]03-01-2023 Miscellaneous Notes* Telephone Encounter - Gem Mercedes RN - 07/22/2022 2:37 PM EST [employer] message sent documented in this [facility]12-28-2022 History of Present illness Narrative* Kenzie Shannon - 05/20/2022 2:28 PM EST Patient Identification confirmed: yes. Injection given and documented on JUL per provider order. Kenzie Shannon documented in this [facility]12-28-2022 Miscellaneous Notes* Addendum Note - Vera Najera MD - 05/20/2022 2:27 PM ESTAddended by: VERA NAJERA on: 05/20/2022 02:27 PM Modules accepted: Orders documented in this [facility]12-28-2022 Instructions* Patient Instructions* Vera Najera MD - 05/20/2022 2:23 PM EST B12 Shot Today and every 4 weeks Get fit for CPAP mask and setting this 05/28/2021 Continue Folic acid. RTC in 8 Weeks - labs 1 week before. documented in this encounterDetwiler Memorial Hospital12-28-2022 History of Present illness Narrative* Vera Najera MD - 05/20/2022 1:30 PM EST Images from the original note were not included. NAME: Jose Carlosfrancisco javierAriadna [facility] NO.: [id number] DATE OF SERVICE: May 20, 2022 ([place]) [...] which included preparing to see the patient, pglg-ld-hxus patient care, completing clinical documentation, performing a medically appropriate examination, counseling and educating the patient/family/caregiver, ordering medications, tests, or p rocedures, and independently interpreting results (not separately reported). Vera Najera MD, CPE Hematology and Oncology Services Provided at: [place], [place] CC: Vera Najera [address] [place] [address] [place] [id number] Manuel Ferris MD, MD [address] [facility] [address] [place]: [place] [address] [place] [address] documented in this encounterDetwiler Memorial Hospital12-13-2022 Miscellaneous Notes* Telephone Encounter - Gem Mercedes RN - 05/05/2022 2:39 PM EST Faxed order, office notes, demographics, and sleep study to: DME name: Josh Seo DME fax: [phone] DME ph: [phone] Confirmation received. documented in this encounterDetwiler Memorial Hospital12-13-2022 Miscellaneous Notes* Telephone Encounter - Gem Mercedes RN - 05/05/2022 12:00 PM EST MyChart message sent documented in this encounterDetwiler Memorial Hospital12-13-2022 Miscellaneous Notes* Telephone Encounter - ANALILIA Monterroso - 05/05/2022 11:36 AM EST [facility] received [facility] PAP order. Due to a major [employer] recall and manufacturing shortage, we are unable to fulfill the request to provide your patient with a CPAP/BIPAP machine at this time. We will keep the request on file and provide when inventory is available or you can forward the order to another DME provider such as [employer], [employer] or [employer]. Caring for our patients is our top priority and we apologize for this delay. Thank you for your patience during this time. [phone] #1 documented in this encounterDetwiler Memorial Hospital12-02-2022 Miscellaneous Notes* Telephone Encounter - [...] doctor has noted concern for EDS. Her pantograph transferrer has told her that she has Lupus. Based on her history, I noted we can offer in-person evaluations for herself and/or her son to see if any genetic testing may be useful. I validated and provided support on the difficulty with her ambulation and transport concerns. [facility] and only available at [facility]. I offered social work and/or transport assistance for the visit. She declined this and will discuss with her regarding the transport. She verbalized understanding the reasons for in-person evaluation recommended. She has the [facility] line and will call to reschedule for an in-person evaluation at [facility]. Ny Lance MD Factory Representative, Associate Staff [facility] documented in this encounterDetwiler Memorial Hospital11-30-2022 Miscellaneous Notes* Telephone Encounter - [...] copy of the report. Confirmed patient's email [email or web address] Eliza Licea Genetic Counselor Electronic Science Teacher documented in this encounterDetwiler Memorial Hospital11-08-2022 Miscellaneous Notes* Telephone Encounter - Renate Lawrence MA - 03/31/2022 2:34 PM EST [facility] pharmacy electronically requests the following refill(s) Requested Prescriptions Pending Prescriptions Disp Refills DULoxetine (CYMBALTA) 20 mg capsule [Pharmacy Med Name: DULOXETINE HCL DR 20 MG CAP] 30 capsule 2 Sig: TAKE 1 CAPSULE BY MOUTH ONCE DAILY Renate Lawrence MA documented in this encounterDetwiler Memorial Hospital11-07-2022 Miscellaneous Notes* Telephone Encounter - [...] Thanks. Misty Nelson MD documented in this [facility]11-07-2022 Miscellaneous Notes* Telephone Encounter - Maria Eugneia Sheehan LPN - 03/30/2022 11:49 AM EST LVM and sent MyChart regarding Dr. Nelson's directive. documented in this encounterDetwiler Memorial Hospital10-26-2022 Instructions* Patient Instructions* Vera Najera MD - 03/18/2022 11:16 AM EDT Referral for sleep study pending Start on Folic acid. RTC in 8 Weeks - labs 1 week before. documented in this encounterDetwiler Memorial Hospital10-26-2022 History of Present illness Narrative* Vera Najera MD - 03/18/2022 10:45 AM EDT Images from the original note were not included. NAME: Ariadna Haley [facility] NO.: [id number] DATE OF SERVICE: March 18, 2022 ([place]) [...] which included preparing to see the patient, ifhr-zb-cwba patient care, completing clinical documentation, performing a medically appropriate examination, counseling and educating the patient/family/caregiver, ordering medications, tests, or p rocedures, and independently interpreting results (not separately reported). Vera Najera MD, CPE Hematology and Oncology Services Provided at: [place], [place] CC: Manuel Ferris MD [address] [facility] [address] documented in this encounterDetwiler Memorial Hospital10-18-2022 History of Present illness Narrative* Misty Nelson MD - 03/10/2022 2:14 PM EDT VIRTUAL VISIT PROGRESS NOTE This is a virtual visit using [employer] video visit. 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 Misty Nelson MD documented in this encounterDetwiler Memorial Hospital10-17-2022 History of Past illness Narrative* ProblemNoted DateDiagnosed DateResolved DateObesity, Class II, BMI 35-39.910//Obesity (BMI 30-39.9)/documented as of this encounter (statuses as of 03/10/2023) [address]17-2022 History of Past illness Narrative* ProblemNoted Date Diagnosed DateResolved DateObesity, Class II, BMI 35-39.910// Obesity (BMI 30-39.9)documented as of this encounter (statuses as of 03/11/2023) [address]17-2022 History of Past illness Narrative* ProblemNoted Date Diagnosed DateResolved DateObesity, Class II, BMI 35-39.910// Obesity (BMI 30-39.9)documented as of this encounter (statuses as of 03/19/2023) [facility] of Past illness Narrative* ProblemNoted Date Diagnosed DateResolved DateObesity, Class II, BMI 35-39.910// Obesity (BMI 30-39.9)documented as of this encounter (statuses as of 03/24/2023) [facility] of Past illness Narrative* ProblemNoted Date Diagnosed DateResolved DateObesity, Class II, BMI 35-39.910// Obesity (BMI 30-39.9)documented as of this encounter (statuses as of 04/16/2023) [address]17-2022 History of Past illness Narrative* ProblemNoted Date Diagnosed DateResolved DateObesity, Class II, BMI 35-39.910// Obesity (BMI 30-39.9)documented as of this encounter (statuses as of 04/23/2023) [address]17-2022 History of Past illness Narrative* ProblemNoted Date Diagnosed DateResolved DateObesity, Class II, BMI 35-39.910/17/ Obesity (BMI 30-39.9)documented as of this encounter (statuses as of 04/27/2023) [address]17-2022 History of Past illness Narrative* ProblemNoted Date Diagnosed DateResolved DateObesity, Class II, BMI 35-39.910/ Obesity (BMI 30-39.9)documented as of this encounter (statuses as of 04/27/2023) [address]17-2022 History of Past illness Narrative* ProblemNoted Date Diagnosed DateResolved DateObesity, Class II, BMI 35-39.91/ Obesity (BMI 30-39.9)documented as of this encounter (statuses as of 05/31/2023) [address]17-2022 History of Past illness Narrative* ProblemNoted Date Diagnosed DateResolved DateObesity, Class II, BMI 35-39.910/ Obesity (BMI 30-39.9)documented as of this encounter (statuses as of 07/13/2023) [address]17-2022 History of Past illness Narrative* ProblemNoted Date Diagnosed DateResolved DateObesity, Class II, BMI 35-39.910/ Obesity (BMI 30-39.9)documented as of this encounter (statuses as of 07/13/2023) [address]17-2022 History of Past illness Narrative* ProblemNoted Date Diagnosed DateResolved DateObesity, Class II, BMI 35-39.910/ Obesity (BMI 30-39.9)documented as of this encounter (statuses as of 08/05/2023) [address]17-2022 History of Past illness Narrative* ProblemNoted Date Diagnosed DateResolved DateObesity, Class II, BMI 35-39.910// Obesity (BMI 30-39.9)documented as of this encounter (statuses as of 08/12/2023) [facility] of Past illness Narrative* ProblemNoted Date Diagnosed DateResolved DateObesity, Class II, BMI 35-39.910// Obesity (BMI 30-39.9)documented as of this encounter (statuses as of 09/01/2023) [facility] of Past illness Narrative* ProblemNoted Date Diagnosed DateResolved DateObesity, Class II, BMI 35-39.910// Obesity (BMI 30-39.9)documented as of this encounter (statuses as of 09/06/2023) [facility] of Past illness Narrative* ProblemNoted Date Diagnosed DateResolved DateObesity, Class II, BMI 35-39.910// Obesity (BMI 30-39.9)documented as of this encounter (statuses as of 09/11/2023) [facility]10-17-[facility] Instructions* Patient Instructions* Christie Phan MD - 03/09/2022 12:47 PM EDT Check EKG for prolonged QT. If normal, I would try going back on the Lexapro, can recheck an EKG inabout a month to make sure that things are going ok. (I'm leaving this, but we are changing to Cymbalta) Tilt Table Test [email or web address] documented in this encounterDetwiler Memorial Hospital10-17-2022 History of Present illness Narrative* Christie Phan MD - 03/09/2022 12:08 PM EDT Images from the original note were not included. 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 documented in this encounterDetwiler [facility] Hospital10-14-2022 Miscellaneous Notes* Telephone Encounter - Krista Braswell MA - 03/06/2022 7:08 AM EDT Pt was notified via . * Telephone Encounter - Lynne Ni MD - 03/05/2022 5:56 PM EDT Please Call patient if MyChart note not read to review results/released to My Chart if tests completed at [facility]: Mildly high vitamin b12- decrease over the [...] accordingly. Lynne Ni MD documented in this encounterDetwiler [facility] Hospital10-12-2022 Instructions* Patient Instructions* Vera Najera MD - 03/04/2022 11:42 AM EDT Labs today. Referral for sleep study. RTC in 2 weeks. Consider immunology referral. Referral to lifestyle medicine documented in this encounterDetwiler [facility] Hospital10-12-2022 History of Present illness Narrative* Vera Najera MD - 03/04/2022 11:19 AM EDT Images from the original note were not included. NAME: Ariadna Haley [facility] NO.: [id number] DATE OF SERVICE: March 04, 2022 Referring [...] which included preparing to see the patient, alst-vt-rkgc patient care, completing clinical documentation, obtaining and/or reviewing separately obtained history, performing a medically appropriate examination, counseling and educating the pat ient/family/caregiver, ordering medications, tests, or procedures, and independently interpreting results (not separately reported). Vera Najera MD, CPE [facility] Provided at: [place], [place] CC: Manuel Ferris MD [address] [id number] Manuel Ferris MD, MD [address] [id number] documented [facility] History of Present illness Narrative* Alhaji Patrickhman, - 02/24/2022 6:00 PM EDT VIRTUAL VISIT PROGRESS NOTE This is a virtual visit using [employer] video visit. 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 Most of her travel is [...] DO February 24, 2022 documented in this encounter[facility] Evaluation note* Encounter Date Diagnosis [...] see rheumatology and is on hydroxychloroquine. Her pantograph transferrer is Dr. Ni. Dr. Ni and I [...] (ICD-10 - R00.0) Nov,Flushing (ICD-10 - R23.2) [facility] Other 06-03-2022 Nurse Note* Lynne Ni MD - 10/24/2021 8:32 AM EDT See progress note documented in this encounterDet[facility]06-[facility] History of Present illness Narrative* [...] Due for eye exam. Labs sent to [facility]/completed in 06/2021 (no results faxed to office, [...] pain: yes H/o precedent/frequent infection(s): as above Enthesopathy/[place]'s/heel/plantar tenderness: hands random painful/tingling Skin thickening, psoriasis, [...] Date(s) Administered COVID-19 vaccine, age 12+ yr ([employer] - PURPLE TOP) 09/28/2020 10/19/2020 Pneumovax no [...] Diagnostic tests reviewed for today's visit: Outside [place] 06/2021 low vitamin D 16, vitamin b12-307;high [...] (200mg) daily with a meal Please see joint yarner every 6-12months while on Hydroxychloroquine. Recommend goal: [...] touching your toes, sit-ups, using row machine m[facility] pain recommendations per primary care provider/pain clinic [...] video & audio (virtual) or phone or [id number] patient care, completing clinical documentation, obtaining and/or [...] my health Strongly Agree documented in this encounterDetw[facility]06-03-2022 Instructions* Patient Instructions* Lynne Ni [...] (200mg) daily with a meal Please see joint yarner every 6-12months while on Hydroxychloroquine. Recommend goal: [...] touching your toes, sit-ups, using row machine mcc pain recommendations per primary care provider/pain clinic Thank you. documented in this encounterDet[facility]05-25-[facility] Evaluation note* Encounter Date Diagnosis [...] lupus diagnosis Rachel defer that to her pantograph transferrer. September,Tachycardia (ICD-10 - R00.0) September,Flushing (ICD-10 - R23.2) [facility] Other 04-28-2022 Evaluation note* Encounter Date Diagnosis Assessment Notes Treatment Notes Treatment Clinical Notes Aug, Elevated sed rate (ICD-10 - R70. 0) [facility] Other 04-21-2022 Evaluation note* Encounter Date Diagnosis [...] lupus diagnosis Rachel defer that to her pantograph transferrer. [facility] Other 05-17-2021 Hospital Discharge instructions* Instructions* So [...] be sent through Care Everywhere. * amlodipine (Luxembourger) * nitroglycerin (oral/sublingual) (Luxembourger) [facility] Phone: [phone]) 495-304605-17-2021 History of Present illness Narrative* So [place] [...] needs to be completed. documented [facility] Phone: [phone]) 134-296001-08-2015 History of Past illness Narrative* Problem Noted DateResolved DateObesity (BMI 30-39.9)documented as of this encounter (statuses as of 10/24/2021) [facility] Narrative* ProblemNoted Date Resolved DateObesity (BMI 30-39.9)documented as of this encounter (statuses as of 02/25/2022) [facility] Narrative* ProblemNoted Date Resolved DateObesity (BMI 30-39.9)documented as of this encounter (statuses as of 03/02/2022) [facility] Narrative* ProblemNoted Date Resolved DateObesity (BMI 30-39.9)documented as of this encounter (statuses as of 03/04/2022) [facility] Narrative* ProblemNoted Date Resolved DateObesity (BMI 30-39.9)documented as of this encounter (statuses as of 03/05/2022) [facility] Narrative* ProblemNoted Date Resolved DateObesity (BMI 30-39.9)documented as of this encounter (statuses as of 03/06/2022) [facility] Narrative* ProblemNoted Date Resolved DateObesity (BMI 30-39.9)documented as of this encounter (statuses as of 03/09/2022) [facility] Narrative* ProblemNoted Date Resolved DateObesity (BMI 30-39.9)documented as of this encounter (statuses as of 03/10/2022) [facility] Narrative* ProblemNoted Date Resolved DateObesity (BMI 30-39.9)documented as of this encounter (statuses as of 03/10/2022) [facility] Narrative* ProblemNoted Date Resolved DateObesity (BMI 30-39.9)documented as of this encounter (statuses as of 03/12/2022) [facility] Narrative* ProblemNoted Date Resolved DateObesity (BMI 30-39.9)documented as of this encounter (statuses as of 03/18/2022) [facility] Narrative* ProblemNoted Date Resolved DateObesity (BMI 30-39.9)documented as of this encounter (statuses as of 03/22/2022) [facility] Narrative* ProblemNoted Date Resolved DateObesity (BMI 30-39.9)documented as of this encounter (statuses as of 03/30/2022) [address]08-2015 History of Past illness Narrative* ProblemNoted Date Resolved DateObesity (BMI 30-39.9)documented as of this encounter (statuses as of 03/30/2022) [facility] Narrative* ProblemNoted Date Resolved DateObesity (BMI 30-39.9)documented as of this encounter (statuses as of 04/03/2022) [facility] Narrative* ProblemNoted Date Resolved DateObesity (BMI 30-39.9)documented as of this encounter (statuses as of 04/03/2022) [address]08-2015 History of Past illness Narrative* ProblemNoted Date Resolved DateObesity (BMI 30-39.9)documented as of this encounter (statuses as of 04/22/2022) [facility] Narrative* ProblemNoted Date Resolved DateObesity (BMI 30-39.9)documented as of this encounter (statuses as of 04/24/2022) [address]08-2015 History of Past illness Narrative* ProblemNoted Date Resolved DateObesity (BMI 30-39.9)documented as of this encounter (statuses as of 05/05/2022) [facility] Narrative* ProblemNoted Date Resolved DateObesity (BMI 30-39.9)documented as of this encounter (statuses as of 05/05/2022) [facility] Narrative* ProblemNoted Date Resolved DateObesity (BMI 30-39.9)documented as of this encounter (statuses as of 05/05/2022) [facility] Narrative* ProblemNoted Date Resolved DateObesity (BMI 30-39.9)documented as of this encounter (statuses as of 05/26/2022) [facility] Narrative* ProblemNoted Date Resolved DateObesity (BMI 30-39.9)documented as of this encounter (statuses as of 05/27/2022) [facility] Narrative* ProblemNoted Date Resolved DateObesity (BMI 30-39.9)documented as of this encounter (statuses as of 07/22/2022) [facility] Narrative* ProblemNoted Date Resolved DateObesity (BMI 30-39.9)documented as of this encounter (statuses as of 07/25/2022) [facility] Narrative* ProblemNoted Date Resolved DateObesity (BMI 30-39.9)documented as of this encounter (statuses as of 07/27/2022) [facility] Narrative* ProblemNoted Date Resolved DateObesity (BMI 30-39.9)documented as of this encounter (statuses as of 07/28/2022) [facility] Narrative* ProblemNoted Date Resolved DateObesity (BMI 30-39.9)documented as of this encounter (statuses as of 08/10/2022) [facility] Narrative* ProblemNoted Date Resolved DateObesity (BMI 30-39.9)documented as of this encounter (statuses as of 08/18/2022) [facility] Narrative* ProblemNoted Date Resolved DateObesity (BMI 30-39.9)documented as of this encounter (statuses as of 08/19/2022) [facility] N[facility]* ProblemNoted Date Resolved DateObesity (BMI 30-39.9)documented as of this encounter (statuses as of 08/27/2022) [facility] N[facility]* ProblemNoted Date Resolved DateObesity (BMI 30-39.9)documented as of this encounter (statuses as of 08/29/2022) [facility] N[facility]ative* ProblemNoted Date Resolved DateObesity (BMI 30-39.9)documented as of this encounter (statuses as of 08/31/2022) [facility] N[facility]* ProblemNoted Date Resolved DateObesity (BMI 30-39.9)documented as of this encounter (statuses as of 09/08/2022) [facility] N[facility]ative* ProblemNoted Date Resolved DateObesity (BMI 30-39.9)documented as of this encounter (statuses as of 09/08/2022) [facility] N[facility]* ProblemNoted Date Resolved DateObesity (BMI 30-39.9)documented as of this encounter (statuses as of 09/24/2022) [facility] N[facility]ative* ProblemNoted Date Resolved DateObesity (BMI 30-39.9)documented as of this encounter (statuses as of 10/22/2022) [facility]* ProblemNoted Date Resolved DateObesity (BMI 30-39.9)documented as of this encounter (statuses as of 10/25/2022) [facility]* ProblemNoted Date Resolved DateObesity (BMI 30-39.9)documented as of this encounter (statuses as of 11/19/2022) [facility]* ProblemNoted Date Resolved DateObesity (BMI 30-39.9)documented as of this encounter (statuses as of 11/25/2022) [facility]* ProblemNoted Date Diagnosed DateResolved DateObesity (BMI 30-39.9)documented as of this encounter (statuses as of 12/08/2022) [facility]* ProblemNoted Date Diagnosed DateResolved DateObesity (BMI 30-39.9)documented as of this encounter (statuses as of 12/18/2022) [facility]* ProblemNoted Date Diagnosed DateResolved DateObesity (BMI 30-39.9)documented as of this encounter (statuses as of 12/18/2022) [facility]* ProblemNoted Date Diagnosed DateResolved DateObesity (BMI 30-39.9)documented as of this encounter (statuses as of 12/21/2022) [facility]* ProblemNoted Date Diagnosed DateResolved DateObesity (BMI 30-39.9)documented as of this encounter (statuses as of 12/22/2022) [facility]* ProblemNoted Date Diagnosed DateResolved DateObesity (BMI 30-39.9)documented as of this encounter (statuses as of 01/02/2023) [facility]* ProblemNoted Date Diagnosed DateResolved DateObesity (BMI 30-39.9)documented as of this encounter (statuses as of 01/13/2023) [facility]* ProblemNoted Date Diagnosed DateResolved DateObesity (BMI 30-39.9)documented as of this encounter (statuses as of 01/22/2023) [facility]* ProblemNoted Date Diagnosed DateResolved DateObesity (BMI 30-39.9)documented as of this encounter (statuses as of 01/26/2023) [facility]* ProblemNoted Date Diagnosed DateResolved DateObesity (BMI 30-39.9)documented as of this encounter (statuses as of 02/04/2023) [facility]* ProblemNoted Date Diagnosed DateResolved DateObesity (BMI 30-39.9)documented as of this encounter (statuses as of 02/04/2023) [facility]* ProblemNoted Date Diagnosed DateResolved DateObesity (BMI 30-39.9)documented as of this encounter (statuses as of 02/07/2023) [facility]* ProblemNoted Date Diagnosed DateResolved DateObesity (BMI 30-39.9)documented as of this encounter (statuses as of 02/08/2023) [facility]* ProblemNoted Date Diagnosed DateResolved DateObesity (BMI 30-39.9)documented as of this encounter (statuses as of 02/16/2023) [facility]* ProblemNoted Date Diagnosed DateResolved DateObesity (BMI 30-39.9)documented as of this encounter (statuses as of 02/19/2023) [facility]* ProblemNoted Date Diagnosed DateResolved DateObesity (BMI 30-39.9)documented as of this encounter (statuses as of 02/21/2023) [facility] Narrative* ProblemNoted Date Diagnosed DateResolved DateObesity (BMI 30-39.9)documented as of this encounter (statuses as of 03/02/2023) [facility] Diagnosis Other systemic lupus [...] and myositis, unspecified [facility] Swelling of lymph nodes- [...] C-reactive protein (CRP) [facility] Diagnosis 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 Other vitamin B12 deficiency anemia Somnolence, daytime Hypersomnia, unspecified Snoring Other dyspnea and respiratory abnormality Chronic fatigue and malaise Chronic fatigue syndrome Obesity, unspecified classification, unspecified obesity type, unspecified whether serious comorbidity present [facility] Diagnosis Obesity, Class II, [...] nonspecific immunological findings [facility] Diagnosis Megaloblastic anemia due to vitamin B12 deficiency- Primary Other vitamin B12 deficiency anemia High total serum IgM [facility] Diagnosis Raised level of immunoglobulins- Primary Other and unspecified nonspecific immunological findings Wound healing, delayed Open wound(s) (multiple) of unspecified site(s), complicated Current smoker Tobacco use disorder [facility] Diagnosis Family history of genetic disease- Primary Family history of other condition [facility] Diagnosis High total serum IgM- [...] Anemia of other chronic disease 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 Encounter for long-term (current) use of other medications [facility] Diagnosis Megaloblastic anemia due to vitamin B12 deficiency- Primary Other vitamin B12 deficiency anemia Elevated sed rate Elevated sedimentation rate [facility] Diagnosis Megaloblastic anemia due [...] apnea (adult) (pediatric) [facility] Diagnosis Megaloblastic anemia due to vitamin B12 deficiency- Primary Other vitamin B12 deficiency anemia Elevated sed rate Elevated sedimentation rate [facility] Diagnosis Other systemic lupus erythematosus with other organ involvement (HCC) 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 Encounter for long-term (current) use of other medications [facility] Diagnosis Megaloblastic anemia due to vitamin B12 deficiency- Primary Other vitamin B12 deficiency anemia Chronic fatigue and malaise Chronic fatigue syndrome [facility]* Diagnosis High total serum IgM- Primary Low serum IgG for age Current smoker Tobacco use disorder [facility] Diagnosis Obesity, Class II, BMI 35-39.9 Obesity, unspecified Prediabetes Other abnormal glucose [facility]* Diagnosis Megaloblastic anemia due to vitamin B12 deficiency- Primary Other vitamin B12 deficiency anemia Elevated sed rate Elevated sedimentation rate [facility]* Diagnosis Other systemic lupus erythematosus with other organ involvement (HCC)- Primary Vitamin D deficiency Unspecified vitamin D deficiency Elevated LFTs Other abnormal blood chemistry Anemia of chronic disease Anemia of other chronic disease Elevated sed rate Elevated sedimentation rate Elevated C-reactive protein (CRP) [facility]* Diagnosis Other systemic lupus [...] involvement (HCC)- Primary [facility]* Diagnosis Megaloblastic anemia due to vitamin B12 deficiency- Primary Other vitamin B12 deficiency anemia High total serum IgM Elevated sed rate Elevated sedimentation rate [facility]* Diagnosis Other systemic lupus erythematosus with other organ involvement (HCC)- Primary [facility] Diagnosis Other systemic lupus erythematosus with other organ involvement (HCC) Encounter for mcc current use of azathioprine Encounter for long-term (current) use of other medications [facility]* Diagnosis Megaloblastic anemia due to vitamin B12 deficiency- Primary Other vitamin B12 deficiency anemia Elevated sed rate Elevated sedimentation rate [facility]* Diagnosis Megaloblastic anemia due to vitamin B12 deficiency- Primary Other vitamin B12 deficiency anemia Elevated sed rate Elevated sedimentation rate Chronic fatigue and malaise Chronic fatigue syndrome High total serum IgM JOSE RAFAEL (obstructive sleep apnea) Obstructive sleep apnea (adult) (pediatric) documented [facility] this encounter [facility]* Diagnosis Insulin resistance, unspecified- Primary Depression, recurrent (HCC) Major depressive disorder, recurrent episode, unspecified Chronic pain syndrome [facility]* Diagnosis Systemic lupus erythematosus, unspecified SLE type, unspecified organ involvement status (HCC)- Primary [facility]* Diagnosis Megaloblastic anemia due to vitamin B12 deficiency- Primary Other vitamin B12 deficiency anemia Elevated sed rate Elevated sedimentation rate [facility]* Diagnosis Megaloblastic anemia due to vitamin B12 deficiency- Primary Other vitamin B12 deficiency anemia Elevated sed rate Elevated sedimentation rate [facility] this [facility]* Diagnosis Obesity, Class III, BMI >= 40- Primary Morbid obesity FUO (fever of unknown origin) Fever, unspecified Other chronic pain documented [facility] this encounter [facility]* Diagnosis Obesity, Class III, BMI >= 40 Morbid obesity documented [facility] this encounter [facility]* Diagnosis Obesity, Class III, BMI >= 40- Primary Morbid obesity Other chronic pain [facility] Diagnosis Irregular heart rate- Primary Essential hypertension Unspecified essential hypertension Autonomic dysfunction Obstructive sleep apnea syndrome Obstructive sleep apnea (adult) (pediatric) Primary hypertension Unspecified essential hypertension documented [facility] this encounter [facility] Work Phone: Evaluation note* Diagnosis Autoimmune disease (CMS/HCC)- Primary Autoimmune disease, not elsewhere classified Autonomic dysfunction Lumbosacral radiculopathy Thoracic or lumbosacral neuritis or radiculitis, unspecified Bilateral leg weakness Muscle weakness (generalized) [facility] Shortness of breath- Primary Paroxysmal supraventricular tachycardia PAC (premature atrial contraction) Supraventricular premature beats Current smoker Systemic lupus erythematosus, unspecified SLE type, unspecified organ involvement status ([facility]) Palpitations Obstructive sleep apnea syndrome Obstructive sleep apnea (adult) (pediatric) Morbid obesity ([facility]/HCC) Morbid obesity Bilateral lower extremity edema documented in this encounter [facility] Work Phone: Evaluation note* Diagnosis Megaloblastic anemia due to vitamin B12 deficiency- Primary Other vitamin B12 deficiency anemia Elevated sed rate Elevated sedimentation rate [facility] this encounter [facility]* Diagnosis Systemic lupus erythematosus with other organ involvement (HCC)- Primary [facility]* Diagnosis Systemic lupus erythematosus with other organ involvement (HCC)- Primary [facility] this [facility]* Diagnosis Megaloblastic anemia due to vitamin B12 deficiency- Primary Other vitamin B12 deficiency anemia Elevated sed rate Elevated sedimentation rate [facility] this [facility]* Diagnosis Other systemic lupus erythematosus with other organ involvement (HCC)- Primary Vitamin D deficiency Unspecified vitamin D deficiency Elevated LFTs Other abnormal blood chemistry Anemia of chronic disease Anemia of other chronic disease Elevated sed rate Elevated sedimentation rate Elevated C-reactive protein (CRP) [facility] Diagnosis Megaloblastic anemia due to vitamin B12 deficiency- Primary Other vitamin B12 deficiency anemia Obstructive sleep apnea syndrome Obstructive sleep apnea (adult) (pediatric) Chronic fatigue and malaise Chronic fatigue syndrome High total serum IgM JOSE RAFAEL (obstructive sleep apnea) Obstructive sleep apnea (adult) (pediatric) Somnolence, daytime Hypersomnia, unspecified [facility] Elevated sed rate- [...] other medications Long-term use of high-risk medication skilled nursing current use of systemic steroids Encounter for long-term (current) use of steroids 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 Bilateral hand pain Pain in limb History of vitamin D deficiency Personal history of nutritional deficiency [facility] Elevated sed rate- Primary Elevated sedimentation rate Megaloblastic anemia due to vitamin B12 deficiency Other vitamin B12 deficiency anemia [facility] Other systemic lupus erythematosus with other organ involvement (HCC) Encounter for [facility] current use of azathioprine Encounter for long-term [...] for pulmonary tuberculosis [facility] Diagnosis Other systemic lupus erythematosus with other organ involvement (HCC) [facility] Diagnosis Systemic lupus erythematosus with other organ involvement (HCC)- Primary [facility]* Diagnosis Elevated sed rate- Primary Elevated sedimentation rate Megaloblastic anemia due to vitamin B12 deficiency Other vitamin B12 deficiency anemia [facility]* Diagnosis Pseudomonas infection- Primary Pseudomonas infection in conditions classified elsewhere and of unspecified site Other systemic lupus erythematosus with other organ involvement (HCC) On prednisone therapy Long-term use of Plaquenil Encounter for long-term (current) use of other medications [facility]* Diagnosis Onset Date Resolution Status Lupus acuteRecurrent Clostridioides difficile diarrheaacuteNipple discharge in female acuteRecurrent Clostridioides difficile diarrheaacuteLumbosacral spondylosis acuteOther chronic painacuteSacroiliitisacute [facility] Work Phone: Evaluation note* Diagnosis JOSE RAFAEL (obstructive sleep apnea)- Primary Obstructive sleep apnea (adult) (pediatric) Somnolence, daytime Hypersomnia, unspecified [facility]* Diagnosis Systemic lupus erythematosus with other organ involvement (HCC)- Primary [facility]* Diagnosis Systemic lupus erythematosus with other organ involvement (HCC)- Primary [facility]* Diagnosis Onset Date Resolution Status Nipple discharge in female acuteRecurrent Clostridioides difficile diarrheaacuteLumbosacral spondylosis acuteOther chronic painacuteSacroiliitisacute [facility] Work Phone: Evaluation note* Diagnosis Elevated sed rate- Primary Elevated sedimentation rate Megaloblastic anemia due to vitamin B12 deficiency Other vitamin B12 deficiency anemia [facility]* Diagnosis Onset Date Resolution Status Nipple discharge in female acuteRecurrent Clostridioides difficile diarrheaacuteLumbosacral spondylosis acuteOther chronic painacuteSacroiliitisacuteLumbosacral spondylosisacuteOther chronic painacuteSacroiliitisK[facility] Work Phone: Evaluation note* Diagnosis Lumbosacral radiculopathy at L5 Degenerative disc disease, lumbar Cervical radiculopathy at C5 documented in this encounter [facility]* Diagnosis Onset Date Resolution Status Lumbosacral spondylosis acuteOther chronic painacuteSacroiliitisacuteLumbosacral spondylosisacuteOther chronic painacuteSacroiliitisacute [facility] Work Phone: Evaluation note* Diagnosis Other systemic lupus erythematosus with other organ involvement (HCC) [facility] Diagnosis Other systemic lupus [...] erythematosus Lupus erythematosus [facility] Diagnosis Nipple discharge Other sign and symptom in breast documented in this encounter [facility] HealthcareEvaluation note* Diagnosis Elevated sed rate- Primary Elevated sedimentation rate Megaloblastic anemia due to vitamin B12 deficiency Other vitamin B12 deficiency anemia [facility] Diagnosis Abnormal uterine bleeding [...] unspecified Frequent infections [facility] Diagnosis Oral thrush- Primary Candidiasis of mouth documented in this encounter [facility]Evaluation note* Diagnosis Oral thrush- Primary Candidiasis of mouth documented in this encounter [facility] HealthcareEvaluation note* Diagnosis Systemic lupus erythematosus with other organ involvement (HCC)- Primary [facility] Diagnosis LPRD (laryngopharyngeal reflux disease)- Primary Acute laryngitis, without mention of obstruction Acute otalgia, right documented in this encounter [facility] HealthcareEvaluation note* Diagnosis Autoimmune disease (CMS/HCC) Autoimmune disease, not elsewhere classified Fibromyalgia Unspecified myalgia and myositis Numbness Disturbance of skin sensation documented in this encounter [facility] HealthcareEvaluation note* Diagnosis Lumbosacral radiculopathy at L5- Primary Degenerative disc disease, lumbar Cervical radiculopathy at C5 documented in this encounter [facility] HealthcareEvaluation note* Diagnosis Degenerative disc disease, lumbar- Primary Lumbosacral radiculopathy at L5 documented in this encounter [facility] HealthcareEvaluation note* Diagnosis Frequent infections- Primary Megaloblastic anemia due to vitamin B12 deficiency Other vitamin B12 deficiency anemia Elevated sed rate Elevated sedimentation rate Hypogammaglobulinemia (HCC) Hypogammaglobulinaemia, unspecified Bilateral leg weakness Other musculoskeletal symptoms referable to limbs Discoid lupus erythematosus Lupus erythematosus [facility] Diagnosis Well woman exam with routine gynecological exam Routine gynecological examination Breast cancer screening by mammogram Breast nodule Other (abnormal) findings on radiological examination of breast [facility] Diagnosis Megaloblastic anemia due to vitamin B12 deficiency- Primary Other vitamin B12 deficiency anemia Hypogammaglobulinemia (HCC) Hypogammaglobulinaemia, unspecified Positive blood cultures Bacteremia Malaise and fatigue Other malaise and fatigue SOB (shortness of breath) Shortness of breath [facility] Diagnosis Elevated sed rate- Primary Elevated sedimentation rate Megaloblastic anemia due to vitamin B12 deficiency Other vitamin B12 deficiency anemia Hypogammaglobulinemia (HCC) Hypogammaglobulinaemia, unspecified Frequent infections Bilateral leg weakness Other musculoskeletal symptoms referable to limbs Discoid lupus erythematosus Lupus erythematosus [facility] Diagnosis Diarrhea, unspecified type- Primary Abdominal pressure Abdominal pain, unspecified site [facility] Diagnosis Other iron deficiency anemia- Primary [facility] Diagnosis Other systemic lupus erythematosus with other organ involvement (HCC) [facility] Diagnosis Systemic lupus erythematosus with other organ involvement (HCC)- Primary [facility]* Diagnosis Systemic lupus erythematosus (CMS-HCC)- Primary Cold extremities Pain of lower extremity, unspecified laterality Rheumatoid arthritis, involving unspecified site, unspecified whether rheumatoid factor present (CMS-HCC) Current smoker 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 documented in this encounter [facility]* Diagnosis Systemic lupus erythematosus (CMS-HCC)- Primary Cold extremities Pain of lower extremity, unspecified laterality Rheumatoid arthritis, involving unspecified site, unspecified whether rheumatoid factor present (CMS-HCC) Current smoker 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 Peripheral vascular disease, unspecified ([facility]-HCC)- Primary Peripheral vascular disease, unspecified Cold extremities Systemic lupus erythematosus ([facility]-HCC) documented in this encounter [facility]* Diagnosis Other systemic lupus erythematosus with other organ involvement (HCC)- Primary Vitamin D deficiency Unspecified vitamin D deficiency Elevated LFTs Other abnormal blood chemistry Anemia of chronic disease Anemia of other chronic disease Elevated sed rate Elevated sedimentation rate Elevated C-reactive protein (CRP) documented [facility]* Diagnosis Onset Date Resolution Status Admit Date Lumbosacral spondylosis acuteFebruary 2024 3:16pmOther chronic painacuteFebruary 2024 3:16pm SacroiliitisacuteFebruary 2024 3:16pm [facility] Work Phone: Evaluation note* Diagnosis Elevated sed rate- Primary Elevated sedimentation rate Megaloblastic anemia due to vitamin B12 deficiency Other vitamin B12 deficiency anemia Frequent infections Hypogammaglobulinemia (HCC) Hypogammaglobulinaemia, unspecified Bilateral leg weakness Other musculoskeletal symptoms referable to limbs Discoid lupus erythematosus Lupus erythematosus [facility] Diagnosis LPRD (laryngopharyngeal reflux disease) Other diseases of larynx Dry mouth Disturbance of salivary secretion Current smoker Tobacco use disorder Abnormal mouth sensation Other and unspecified diseases of the oral soft tissues [facility]* Diagnosis Nipple discharge- Primary Other sign and symptom in breast Other systemic lupus erythematosus with other organ involvement (HCC) On prednisone therapy Long-term use of Plaquenil Encounter for long-term (current) use of other medications [facility] Diagnosis Hidradenitis suppurativa- Primary Hidradenitis Other seborrheic dermatitis Lupus erythematosus tumidus (CMS/HCC) Rash and other nonspecific skin eruption Capillary angioma Nevus, non-neoplastic Neoplasm of uncertain behavior of skin documented in this encounter [facility] HealthcareEvaluation note* Diagnosis Sinus tachycardia- Primary Other specified cardiac dysrhythmias Shortness of breath Paroxysmal supraventricular tachycardia (CMS-HCC) Paroxysmal supraventricular tachycardia Essential hypertension Unspecified essential hypertension Obstructive sleep apnea syndrome Obstructive sleep apnea (adult) (pediatric) Morbid obesity (Multi) Morbid obesity Current smoker documented in this encounter [facility] Work Phone: Evaluation note* Diagnosis Elevated sed rate- Primary Elevated sedimentation rate Megaloblastic anemia due to vitamin B12 deficiency Other vitamin B12 deficiency anemia Frequent infections Hypogammaglobulinemia (HCC) Hypogammaglobulinaemia, unspecified Bilateral leg weakness Other musculoskeletal symptoms referable to limbs Discoid lupus erythematosus Lupus erythematosus [facility] Diagnosis Systemic lupus erythematosus with other organ involvement (HCC)- Primary [facility] Diagnosis Vitamin B12 deficiency- Primary Other B-complex deficiencies Other iron deficiency anemia Hypogammaglobulinemia (HCC) Hypogammaglobulinaemia, unspecified [facility]* Diagnosis Other systemic lupus erythematosus with other organ involvement (HCC) [facility] Diagnosis Thyroid nodule (CMS/HCC)- Primary Nontoxic uninodular goiter LPRD (laryngopharyngeal reflux disease) Acute laryngitis, without mention of obstruction documented in this encounter [facility] HealthcareEvaluation note* Diagnosis Hypogammaglobulinemia (HCC)- Primary Hypogammaglobulinaemia, unspecified Vitamin B12 deficiency Other B-complex deficiencies Other iron deficiency anemia Megaloblastic anemia due to vitamin B12 deficiency Other vitamin B12 deficiency anemia [facility]* Diagnosis Frequent infections- Primary Hypogammaglobulinemia (HCC) Hypogammaglobulinaemia, unspecified Bilateral leg weakness Other musculoskeletal symptoms referable to limbs Discoid lupus erythematosus Lupus erythematosus Elevated sed rate Elevated sedimentation rate Megaloblastic anemia due to vitamin B12 deficiency Other vitamin B12 deficiency anemia [facility] Diagnosis Other systemic lupus erythematosus with other organ involvement (HCC)- Primary [facility] Diagnosis Other systemic lupus erythematosus with other organ involvement (HCC) [facility] Diagnosis Systemic lupus erythematosus with other organ involvement (HCC)- Primary [facility]* Diagnosis Fibromyalgia- Primary Mylagia and myositis, unspecified Family history of disease of aorta Family history of cancer Family history of unspecified malignant neoplasm [facility]* Diagnosis Frequent infections- Primary [...] vitamin D deficiency documented [facility]* Diagnosis Other systemic lupus erythematosus with other organ involvement (HCC)- Primary [facility]* Diagnosis Other systemic lupus erythematosus with other organ involvement (HCC)- Primary Elevated LFTs Other abnormal blood chemistry Anemia of chronic disease Anemia of other chronic disease Elevated sed rate Elevated sedimentation rate Elevated C-reactive protein (CRP) Vitamin B12 deficiency Other B-complex deficiencies Screening-pulmonary TB Screening examination for pulmonary tuberculosis Vitamin D deficiency Unspecified vitamin D deficiency [facility]* Diagnosis Other systemic lupus [...] in joint, forearm [facility]* Diagnosis Other systemic lupus erythematosus with other organ involvement (HCC)- Primary [facility]* Diagnosis 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 documented [facility] this [facility]* Diagnosis Elevated sed rate- Primary Elevated sedimentation rate Megaloblastic anemia due to vitamin B12 deficiency Other vitamin B12 deficiency anemia Frequent infections Hypogammaglobulinemia (HCC) Hypogammaglobulinaemia, unspecified Bilateral leg weakness Other musculoskeletal symptoms referable to limbs Discoid lupus erythematosus Lupus erythematosus documented in this [facility]* Diagnosis Other systemic lupus erythematosus with other organ involvement (HCC)- Primary documented in this [facility]* Diagnosis Hypogammaglobulinemia (HCC)- Primary Hypogammaglobulinaemia, unspecified documented in this [facility]* Diagnosis Hidradenitis suppurativa- Primary Hidradenitis Pain Generalized pain Acne vulgaris Other acne [facility]* Diagnosis Hypogammaglobulinemia (HCC)- Primary Hypogammaglobulinaemia, unspecified Vitamin B12 deficiency Other B-complex deficiencies Other iron deficiency anemia Malaise and fatigue Other malaise and fatigue Shortness of breath Other specified disorders of breast Pre-diabetes Other abnormal glucose Gastro-esophageal reflux disease without esophagitis Esophageal reflux [facility]* Diagnosis Elevated sed rate- Primary Elevated sedimentation rate Megaloblastic anemia due to vitamin B12 deficiency Other vitamin B12 deficiency anemia Frequent infections Hypogammaglobulinemia (HCC) Hypogammaglobulinaemia, unspecified Bilateral leg weakness Other musculoskeletal symptoms referable to limbs Discoid lupus erythematosus Lupus erythematosus documented in this [facility]* Diagnosis Other systemic lupus erythematosus with other organ involvement (HCC)- Primary [facility]* Diagnosis Other systemic lupus erythematosus with other organ involvement (HCC)- Primary Elevated LFTs Other abnormal blood chemistry Anemia of chronic disease Anemia of other chronic disease Elevated sed rate Elevated sedimentation rate Elevated C-reactive protein (CRP) Vitamin D deficiency Unspecified vitamin D deficiency Vitamin B12 deficiency Other B-complex deficiencies Screening-pulmonary TB Screening examination for pulmonary tuberculosis [facility]* Diagnosis Other systemic lupus erythematosus with other organ involvement (HCC)- Primary Elevated LFTs Other abnormal blood chemistry Anemia of chronic disease Anemia of other chronic disease Elevated C-reactive protein (CRP) Elevated sed rate Elevated sedimentation rate Vitamin D deficiency Unspecified vitamin D deficiency [facility]* Diagnosis Frequent infections- Primary Hypogammaglobulinemia (HCC) Hypogammaglobulinaemia, unspecified Bilateral leg weakness Other musculoskeletal symptoms referable to limbs Discoid lupus erythematosus Lupus erythematosus Elevated sed rate Elevated sedimentation rate Megaloblastic anemia due to vitamin B12 deficiency Other vitamin B12 deficiency anemia [facility]* Diagnosis Pilonidal cyst- Primary Hidradenitis suppurativa Hidradenitis [facility] Diagnosis Pilonidal abscess- Primary Pilonidal cyst with abscess Pilonidal cyst documented in this encounter [facility]Evaluation [facility]* Diagnosis Nipple discharge [...] Tobacco use disorder [facility] Pilonidal abscess- Primary Pilonidal cyst with abscess documented in this encounter [facility] HealthcareHistory general Narrative - Reported* Type Description Date Medical History hyperlipidemia Medical Historyinsulin resistanceMedical HistoryCMVSurgical Historycyst removal pilonidalSurgical HistoryD&CHospitalization Historypregnancy Apriva Other Hospital Discharge instructionsAmbulatory Orders* Referral to Gastroenterology Location: None [facility] Work Phone: Hospital Discharge instructions Additional Instructions Dressing changes to sacral region daily: Remove packing, irrigate with saline, repack with saline moistened 2 x 2 gauze and cover with dry dressingN[facility]wide [facility] Work Phone: InstructionsNot on filedocumented in this encounter [facility] (n[facility]ative)* Diagnostic Procedure Only (Routine) - Pending ReviewSpecialtyDiagnoses / ProceduresReferred By ContactReferred To ContactXR IMAGING Diagnoses Steroid-induced osteoporosis Procedures DXA-FOREARM SKELETON DXA BONE DENSITY STUDY /SITES APPENDICLR Lynne Perera MD [address] [place] [address] [place] [id number] Referral IDStatusReasonStart DateExpiration DateVisits RequestedVisits [id number] Auto-Generated Referral [facility] for referral (narrative)* Consultation (Routine) - AuthorizedSpecialtyDiagnoses / ProceduresReferred By ContactReferred To ContactCardiology Diagnoses Irregular heart rate Essential hypertension Autonomic dysfunction Obstructive sleep apnea syndrome Primary hypertension Procedures Follow Up In Cardiology Michelle Jasmine APRN-CNP [address] [facility] [address] [place] [address] Aurora Patel MD [address] [address] Referral IDStatusReasonStart DateExpiration DateVisits RequestedVisits [id number] * Cardiovascular (Routine) - Pending ReviewSpecialtyDiagnoses / Procedures Referred By ContactReferred To ContactCardiology Diagnoses Irregular heart rate Procedures Holter Or Event Circulation Assistant Michelle Jasmine APRN-CNP [address] [place] [address] Referral IDStatusReasonStart DateExpiration DateVisits RequestedVisits [id number] * CV Imaging (Routine) - Pending ReviewSpecialtyDiagnoses / ProceduresReferred By ContactReferred To ContactCardiology Diagnoses Irregular heart rate Obstructive sleep apnea syndrome Procedures Transthoracic Echo (TTE) Complete [place] ECHO TTHRC R-T 2D W/WOM-MODE COMPL SPEC&COLR D Michelle Jasmine, [facility] [address] [facility] [address] [place] [address] Referral IDStatusReasonStart DateExpiration DateVisits RequestedVisits [id number] Perform Procedure * Cardiovascular (Routine) - AuthorizedSpecialtyDiagnoses / ProceduresReferred By ContactReferred To Contact Diagnoses Irregular heart rate Procedures ECG 12 Lead Michelle Jasmine [facility] [address] [facility] [address] [place] [address] Referral IDStatusReasonStart DateExpiration DateVisits RequestedVisits [id number]/17/20241/16/202511 [facility] Work Phone: Reason for referral (narrative)* Consultation (Routine) - Pending ReviewSpecialtyDiagnoses / ProceduresReferred By Contact Referred To ContactPain Medicine Diagnoses Lumbosacral radiculopathy at L5 Degenerative disc disease, lumbar Procedures [place] OFFICE/OUTPATIENT [facility] 60 MINUTES Kade Early MD [address] [address] Adolfo Kang MD [address] [address] Referral IDStatusReasonStart DateExpiration DateVisits RequestedVisits [id number] Review Specialty Services Required [facility] HospitalReason for referral (narrative)No reason for referral information availableParma Community [facility] Work Phone: Reason for visit Narrative* [place] Prior Authorization (Routine) - AuthorizedSpecialtyDiagnoses / ProceduresReferred By Contact Referred To Contact Diagnoses Frequent infections Hypogammaglobulinemia (HCC) Bilateral leg weakness Discoid lupus erythematosus Procedures GAMMAGARD LIQUID INJECTION Vera Najera MD [address] [place] [address] [place] [address] Phone: tel: fax: Hematology/Oncology [address] [place] [address] [place] [address] Phone: tel: fax: Referral IDStatusReasonStart DateExpiration DateVisits RequestedVisits [id number]/11/20245/ [facility] for visit Narrative* [place] Prior Authorization (Routine) - AuthorizedSpecialtyDiagnoses / ProceduresReferred By ContactReferred To Contact Diagnoses Other systemic lupus erythematosus with other organ involvement (HCC) Procedures BELIMUMAB INJECTION Lynne Ni MD [address] [place] [address] Phone: tel: fax: Lynne Ni MD [address] [place] [address] Phone: tel: fax: Referral IDStatusReasonStart DateExpiration DateVisits RequestedVisits [id number]/18/202510/ [facility] for visit Narrative* [place] Prior Authorization (Routine) - AuthorizedSpecialtyDiagnoses / ProceduresReferred By ContactReferred To Contact Diagnoses Other iron deficiency anemia Procedures IRON SUCROSE INJECTION PER 1 MG Vaibhav Carvalho APRN.DIGITAL MEDIA ANALYST [address] [place] [address] [place] [address] Phone: tel: fax: Hematology/Oncology [address] [facility] [address] Phone: tel: fax: Referral IDStatusReasonStart DateExpiration DateVisits RequestedVisits [id number]/24/202512/31/20259999 [facility] for visit Narrative* [place] Prior Authorization (Routine) - AuthorizedSpecialtyDiagnoses / ProceduresReferred By ContactReferred To Contact Diagnoses Frequent infections Hypogammaglobulinemia (HCC) Bilateral leg weakness Discoid lupus erythematosus Procedures GAMMAGARD LIQUID INJECTION Vera Najera MD [address] [facility] [place] [address] Phone: tel: fax: Hematology/Oncology [address] [place] [address] [place] [id number] Phone: tel: fax: Referral IDStatusReasonStart DateExpiration DateVisits RequestedVisits [id number] Patient Cleared - Admin/Tennis Director/Director advise to proceed or did not respond / [facility] for visit Narrative* [place] Prior Authorization (Routine) - AuthorizedSpecialtyDiagnoses / ProceduresReferred By ContactReferred To Contact Diagnoses Frequent infections Hypogammaglobulinemia (HCC) Bilateral leg weakness Discoid lupus erythematosus Procedures GAMMAGARD LIQUID INJECTION Vera Najera MD [address] [place] [address] Phone: tel: fax: Hematology/Oncology [address] [place] [address] [place] [address] Phone: tel: fax: Referral IDStatusReasonStart DateExpiration DateVisits RequestedVisits [id number] Patient Cleared - Admin/Tennis Director/Director advise to proceed or did not respond [facility] HospitalReason [facility] Narrative* [place] Prior Authorization (Routine) - AuthorizedSpecialtyDiagnoses / ProceduresReferred By ContactReferred To Contact Diagnoses Frequent infections Hypogammaglobulinemia (HCC) Bilateral leg weakness Discoid lupus erythematosus Procedures GAMMAGARD LIQUID INJECTION IMMUNE GLOBULIN INJECTION Vera Najera MD [address] [facility] [place] [address] Phone: tel: fax: Hematology/Oncology [address] [place] [address] [place] [address] Phone: tel: fax: Referral IDStatusReasonStart DateExpiration DateVisits RequestedVisits [id number] Patient Cleared - Admin/Tennis Director/Director advise to proceed or did not respond 919 [facility] Summary Purpose Family History No [...] cultures Procedures CONSULT TO INFECTIOUS DISEASES OFFICE/OUTPATIENT [facility]IGH MDM 60 MINUTES Vaibhav Carvalho APRN.DIGITAL MEDIA ANALYST [address] [facility] [place] [address] Referral IDStatusReasonStfork union DateExpiration DateVisits RequestedVisits [id number] PCP Requested Referral [id number] / ProceduresReferred By ContactReferred To Contact Diagnoses Paroxysmal supraventricular tachycardia PAC (premature atrial contraction) Procedures ECG 12 Lead Lois Holm MD [address] [place] [address] 2, [address] [place] [address] Referral IDStatusReasonStfork union DateExpiration DateVisits RequestedVisits [id number]/20/20242/19/335089LfwaggbfpOyaekpckm / Procedures Referred By ContactReferred To ContactCardiology Diagnoses Shortness of breath Paroxysmal supraventricular tachycardia PAC (premature atrial contraction) Procedures Follow Up In Cardiology Lois Holm MD [address] [facility] [address], [address] [place] [address] Lois Holm MD [address] [place] [address] 2, [address] [place] [address] Referral [facility]StatusRe[facility] DateExpiration DateVisits RequestedVisits [id number]/20/20242/19/343448CpydyrnaiScbqiyfzk / Procedures Referred By ContactReferred To Contact Diagnoses Obesity, Class III, BMI 40-49.9 (morbid obesity) (HCC) Pre-diabetes Christie Phan MD [address] [place] [address] Referral IDStatusReexcelsior springs medical centerStfork union DateExpiration DateVisits RequestedVisits [id number] / ProceduresReferred By Contact Referred To Contact Diagnoses Wound healing, delayed Procedures CONSULT TO MEDICAL GENETICS - GENERAL OFFICE/OUTPATIENT [facility] 60-74 MINUTES MEDICAL GENETICS COUNSELING EACH 30 MINUTES Misty Nelson MD [facility] [place] [address] [facility] [place] [address] Referral IDStatusReasonStart DateExpiration DateVisits RequestedVisits [id number] PCP Requested Referral Auto-Generated Referral [id number] / ProceduresReferred By ContactReferred To ContactNeurology Diagnoses POTS (postural orthostatic tachycardia syndrome) Procedures CONSULT TO NEUROLOGY OFFICE/OUTPATIENT [facility] 60-74 MINUTES Christie Phan MD [address] [place] [address] Referral IDStatusReasonStart DateExpiration DateVisits RequestedVisits [id number] PCP Requested Referral [id number] / ProceduresReferred By ContactReferred To ContactImmunology Diagnoses Raised level of immunoglobulins Procedures CONSULT TO IMMUNOLOGY OFFICE/OUTPATIENT [facility] 60-74 MINUTES Christie Phan MD [address] [place] [address] Referral IDStatusReason[place] DateExpiration DateVisits RequestedVisits [id number] PCP Requested Referral [id number] / ProceduresReferred By ContactReferred To ContactNEUROLOGICAL INSTITUTE Diagnoses Somnolence, daytime Snoring Procedures HOME SLEEP APNEA TEST (HSAT) SLEEP STD AIRFLOW HRT RATE&O2 SAT EFFORT UNATT Christie Phan MD [address] [place] [address] [place] [address] Referral IDStatusReasonart DateExpiration DateVisits RequestedVisits [id number] Auto-Generated Referral [id number] / ProceduresReferred By ContactReferred To Contact Diagnoses Somnolence, daytime Chronic fatigue and malaise Obesity, unspecified classification, unspecified obesity type, unspecified whether serious comorbidity present Procedures CONSULT TO LIFESTYLE MEDICINE MD OFFICE/[facility]IENT [facility] M[facility] 60-74 MINUTES Vera Najera MD [address] [place] [address] Referral IDStatusReasonStfork union DateExpiration DateVisits RequestedVisits [id number] PCP Requested Referral [id number] / ProceduresReferred By ContactReferred To Contact Diagnoses Somnolence, daytime Snoring Procedures CONSULT TO SLEEP MEDICINE - ADULT OFFICE/[facility]PATIENT [facility] MDM 60-74 MINUTES Vera Najera MD [address] [place] [address] Referral IDStatusReasonStfork union DateExpiration DateVisits RequestedVisits [id number] PCP Requested Referral Medications Administered Section Medication [...] and content) DATE CREATED AUTHOR 09/20/2018 [facility] DATE CREATED AUTHOR AUTHOR'S ORGANIZ ATION 12/10/2018 [facility] DATE CREATED AUTHOR AUTHOR'S ORGANIZ ATION 01/13/2019 [facility] DATE CREATED AUTHOR AUTHOR'S ORGANIZ ATION 06/28/2021 [facility] DATE CREATED AUTHOR AUTHOR'S ORGANIZ ATION 10/01/2022 [facility] DATE CREATED AUTHOR AUTHOR'S ORGANIZ ATION 03/10/2024 [facility] DATE CREATED AUTHOR AUTHOR'S ORGANIZ ATION 07/22/2024 [facility] DATE CREATED AUTHOR AUTHOR'S ORGANIZ ATION 07/28/2024 [facility] DATE CREATED AUTHOR AUTHOR'S ORGANIZ ATION 03/14/2025 [facility] DATE CREATED AUTHOR AUTHOR'S ORGANIZ ATION 03/18/2025 [facility] DATE CREATED AUTHOR AUTHOR'S ORGANIZ ATION 03/23/2025 [facility] DATE CREATED AUTHOR AUTHOR'S ORGANIZ ATION 03/24/2025 [facility] EPIC Reason for Visit (unrecogniz ed section and content) ReasonCommentsInfection Follow UpSpecialtyDiagnoses / ProceduresReferred By ContactReferred To ContactInfectious Diseases Diagnoses Positive blood cultures Procedures CONSULT TO INFECTIOUS DISEASES OFFICE/OUTPATIENT [facility] 60 MINUTES Vaibhav Carvalho APRN.[address] [place] [address] Phone: tel: fax: Referral IDStatusReasonStart DateExpiration DateVisits RequestedVisits [id number] PCP Requested Referral /[id number]eaoxtv / ProceduresReferred By ContactReferred To Contact [employer] [facility] ReasonCommentsPainongoing generalized pain.ReasonCommentsNewReasonCommentsOpened In ErrorReasonCommentsResultsReasonCommentsAbnormal labsNew patient consult ReasonCommentsNew PatientVirtual visitSpecialtyDiagnoses / ProceduresReferred By ContactReferred To Contact Diagnoses Somnolence, daytime Chronic fatigue and malaise Obesity, unspecified classification, unspecified obesity type, unspecified whether serious comorbidity present Procedures CONSULT TO LIFESTYLE MEDICINE [place] OFFICE/OUTPATIENT [facility] 60-74 MINUTES Vera Najera MD [address] [place] [address] [place] [address] Referral IDStatusReasonStart DateExpiration DateVisits RequestedVisits [id number] PCP Requested Referral [id number] Total serum IgMAnemiaReasonComments ConsultSpecialtyDiagnoses / ProceduresReferred By ContactReferred To Contact Immunology Diagnoses Raised level of immunoglobulins Procedures CONSULT TO IMMUNOLOGY OFFICE/OUTPATIENT [facility] 60-74 MINUTES Christie Phan MD [address] [address] Referral IDStatusReasonStfork union DateExpiration DateVisits RequestedVisits [id number] PCP Requested Referral [id number]ixdnmBkrdxtrbOccilz RequestReason CommentsAppointmentCare Coordinator - OtherReasonCommentsFuture Appointment Scheduling questions/concernsReasonCommentsPAP Therapy Follow UpReasonComments PAP Rx FaxedDME [facility] [place]ReasonCommentsAnemia8 week follow upReason CommentsOrdersLab Orders Before AppointmentReasonCommentsSleep Apnea ReasonCommentsAnemiaReasonCommentsPainWeight ManagementReasonCommentsReason CommentsCare CoordinationappointmentReasonCommentsEstablished PatientReason CommentsAppointmentReasonCommentsFollow UpReasonOnset DateCommentsRefill Request 12/24/2022ReasonCommentsSLEReasonOnset DateCommentsSPP Inflammatory Conditions - Treatment Pcoazfal31/14/2023enlystaInsurance Mhirbqdpmeclo89/14/2023A submission pendingReasonCommentsAppointmentOrdersMedication AuthorizationReason CommentsResultsEye ExamReasonCommentsAllied Health VisitBenlysta teachingReason CommentsCMNReasonCommentsEstablished Patient Follow-UpReasonCommentsWeight ManagementReasonCommentsNew Patient VisitHEART RATE/ BPSpecialtyDiagnoses / ProceduresReferred By ContactReferred To Contact Diagnoses Irregular heart rate Procedures ECG 12 Lead Michelle Jasmine, MICROBIOLOGY TECHNICIAN-DIGITAL MEDIA ANALYST [address] [facility] [address] [place] [address] Referral IDStatusReasonStart DateExpiration DateVisits RequestedVisits [id number]/17/20241/538095RgbupwHtlotlzrUdy Patient Visit Leg Swelling, [facility]ialtyDiagnoses / ProceduresReferred By ContactReferred To Contact Diagnoses Paroxysmal supraventricular tachycardia PAC (premature atrial contraction) Procedures ECG 12 Lead Lois Holm MD [address] [facility] [address], [address] [place] [address] Referral IDStatusReasonStart DateExpiration DateVisits RequestedVisits [id number]/20/20242/602367HrhxwiFvjta DateCommentsSPP Inflammatory Conditions - Medication Aqzofv0907/13/2023enlystaReasonOnset Date CommentsSPP Inflammatory Conditions - Medication Igvfeg4008/12/2023enlystaReason Onset DateCommentsSPP Inflammatory Conditions - Medication Vcdbou6209/13/2023 BenlystaReasonCommentsSLEReasonOnset DateCommentsSPP Inflammatory Conditions - Medication Nnivwa0710/12/2023enlystaReasonOnset DateCommentsRefill Request 4ReasonOnset DateCommentsSPP Inflammatory Conditions - Medication Qhxxde304Benlysta - NCA 09/2024ReasonOnset DateCommentsSPP Inflammatory Conditions - Medication Gbtmwo0612/13/2023enlysta - NCA 09/2024ReasonOnset Date CommentsSPP Inflammatory Conditions - Medication Phrnwg2101/18/2024enlystaReason Onset DateCommentsSPP Inflammatory Conditions - Medication Oaxqnl7202/14/2024 Benlysta - NCA 5/2025ReasonOnset DateCommentsSPP Inflammatory Conditions - Follow-up4BenlystaInsurance Ubespxqjcyrfc13/23/2024PA Renewal Submitted ReasonCommentsOrdersPAP RX.ReasonCommentsCare Coordinator - OtherEds scheduling ReasonCommentsMed Change RequestReasonCommentscmnReasonOnset DateCommentsSPP Inflammatory Conditions - Medication Qevgle614Benlysta - NCA 09/2024Reason CommentsBreast ProblemReasonCommentsVaginal BleedingPt present today for bleeding when she wipes.ReasonOnset DateCommentsSPP Inflammatory Conditions - Medication Jmprse2804/11/2024enlystaReasonCommentsEar ProblemPossible thrush, ear painReasonCommentsMed RefillReasonOnset DateCommentsSPP Inflammatory Conditions - Medication Fkncqn7705/12/2024enlystaSpecialtyDiagnoses / ProceduresReferred By ContactReferred To Contact Diagnoses Frequent infections Hypogammaglobulinemia (HCC) Bilateral leg weakness Discoid lupus erythematosus Procedures GAMMAGARD LIQUID INJECTION Vera Najera MD [address] [place] [address] [place] [address] [facility] [address] [place] [address] Referral IDStatusReasonStart DateExpiration DateVisits RequestedVisits [id number]/11/20245/11/311502JamuqmAsfwhtilCgez Women Visit ReasonOnset DateCommentsSPP Inflammatory Conditions - Medication Refill 5BenlystaReasonCommentsLab OrdersReasonCommentsArt TherapyReason CommentsAnemiaReasonCommentsBreath Hydrogen TestSIBO Breath TestReasonOnset Date CommentsSPP Inflammatory Conditions - Medication Ctrayx1706/29/2024enlystaReason Commentsposs raynaudsSpecialtyDiagnoses / ProceduresReferred By ContactReferred To ContactVascular Surgery Diagnoses Cold extremities Pain of lower extremity, unspecified laterality Gay De La Torre, MICROBIOLOGY TECHNICIAN-DIGITAL MEDIA ANALYST [address] [facility], [place] [address] Phone: tel: fax: Hayden Arciniega MD [address] [place] [address] Phone: tel:[phone] fax: Referral IDStatusReasonStart DateExpiration DateVisits RequestedVisits [id number] Review Specialty Services Required [id number]/Lip ProblemSince OctoberReasonOnset DateCommentsSPP Inflammatory Conditions - Medication Azaajs9307/25/2024enlysta ReasonCommentsFollow-upSkin CheckReasonCommentsAnnual ExamSpecialtyDiagnoses / ProceduresReferred By ContactReferred To ContactCardiology Diagnoses Shortness of breath Paroxysmal supraventricular tachycardia (CMS-HCC) PAC (premature atrial contraction) Procedures Follow Up In Cardiology Lois Holm MD [address] [place] [address], [address] [address] Phone: tel: fax: Lois Holm MD [address] [place] [address] [address], [address] [address] Phone: tel: fax: Referral IDStatusReasonStart DateExpiration DateVisits RequestedVisits [id number]/20/20242/19/345881UfcfymUgdmmwfhStn Change Request ReasonCommentsPatient QuestionReasonOnset DateCommentsSPP Inflammatory Conditions - Medication Udulpc755BenlystaReasonOnset DateCommentsRefill Hnocjqg8909/01/2024ReasonCommentsThyroid NoduleFollow up ultrasound [facility] 08/24/24 ReasonCommentsMegaloblastic anemia due to vitamin B12 deficiencyTreatment visit ReasonOnset EnslMhyhdmlrVcqlynw77/17/2025ReasonCommentsMedication PreauthorizationAppointmentReasonCommentsFuture AppointmentReasonOnset Date CommentsSPP Inflammatory Conditions - Medication Gwhqdo2409/20/2024enlystaReason CommentsJoint PainReasonCommentsPatient UpdateAppointmentReasonCommentsSLE OsteoarthritisReasonCommentsConsulthypermobilitySpecialtyDiagnoses / Procedures Referred By ContactReferred To ContactGenetics / MEDICAL GENETICS Diagnoses hEDS with concerns and wants CTD evaluation Procedures EST PATIENT Self Ny Lance MD [address] [address] Phone: tel: fax: Referral IDStatusReasonStart DateExpiration DateVisits RequestedVisits [id number] Review/179240BlshqxBobntmgiGqqjpe-ek ReasonCommentsHypogammagloblinemiaMegablastic anemiaOTVReasonOnset DateComments Qpsucai2511/30/2024ReasonCommentsFollow-upSuspicious Skin LesionReasonComments ConsultPilonidal cyst- Pt had a pilonidal cyst and sinus removal about 15 yrs ago- [facility] did procedure. Everything went well and was doing fine until about 2-3 weeks ago.SpecialtyDiagnoses / ProceduresReferred By ContactReferred To Contact General Surgery Diagnoses Pilonidal cyst Procedures [place] OFFICE/OUTPATIENT NEW HIGH MDM 60 MINUTES Bernabe English MD [address] [facility] [address] [place] [address] Phone: tel: fax: Terence Blum MD 703 [facility] [address] [place] [address] Phone: tel: fax: Referral IDStatusReasonStart DateExpiration DateVisits RequestedVisits [id number] Specialty Services Required /[id number] PatientPilonidal cyst with abscessReferral from Dr. Gay De La Torre- [facility]. Patient denies fever, nausea, vomiting or diarrheaNo current complaints of SOB, cough or congestionReason Jqblhnvd8se po I&D of pilonidal cyst Ordered Prescriptions (unrec ognized section and content) [...] or prosecute any alcohol or drug abuse patient.[facility] HospitalIn the event this information is protected by the Federal Confidentiality of Alcohol and Drug Abuse Patient Records regulations: The Federal rules restrict any use of the information to criminally investigate or prosecute any alcohol or drug abuse patient.[facility] HospitalIn the event this information is protected by the Federal Confidentiality of Alcohol and Drug Abuse Patient Records regulations: The Federal rules restrict any use of the information to criminally investigate or prosecute any alcohol or drug abuse patient.[facility] HospitalIn the event this information is protected by the Federal Confidentiality of Alcohol and Drug Abuse Patient Records regulations: The Federal rules restrict any use of the information to criminally investigate or prosecute any alcohol or drug abuse patient.[facility] HospitalIn the event this information is protected by the Federal Confidentiality of Alcohol and Drug Abuse Patient Records regulations: The Federal rules restrict any use of the information to criminally investigate or prosecute any alcohol or drug abuse patient.[facility] HospitalIn the event this information is protected by the Federal Confidentiality of Alcohol and Drug Abuse Patient Records regulations: The Federal rules restrict any use of the information to criminally investigate or prosecute any alcohol or drug abuse patient.[facility] HospitalIn the event this information is protected by the Federal Confidentiality of Alcohol and Drug Abuse Patient Records regulations: The Federal rules restrict any use of the information to criminally investigate or prosecute any alcohol or drug abuse patient.[facility] HospitalIn the event this information is protected by the Federal Confidentiality of Alcohol and Drug Abuse Patient Records regulations: The Federal rules restrict any use of the information to criminally investigate or prosecute any alcohol or drug abuse patient.[facility] HospitalIn the event this information is protected by the Federal Confidentiality of Alcohol and Drug Abuse Patient Records regulations: The Federal rules restrict any use of the information to criminally investigate or prosecute any alcohol or drug abuse patient.[facility] HospitalIn the event this information is protected by the Federal Confidentiality of Alcohol and Drug Abuse Patient Records regulations: The Federal rules restrict any use of the information to criminally investigate or prosecute any alcohol or drug abuse patient.[facility] HospitalIn the event this information is protected by the Federal Confidentiality of Alcohol and Drug Abuse Patient Records regulations: The Federal rules restrict any use of the information to criminally investigate or prosecute any alcohol or drug abuse patient.[facility] HospitalIn the event this information is protected by the Federal Confidentiality of Alcohol and Drug Abuse Patient Records regulations: The Federal rules restrict any use of the information to criminally investigate or prosecute any alcohol or drug abuse patient.[facility] HospitalIn the event this information is protected by the Federal Confidentiality of Alcohol and Drug Abuse Patient Records regulations: The Federal rules restrict any use of the information to criminally investigate or prosecute any alcohol or drug abuse patient.[facility] HospitalIn the event this information is protected by the Federal Confidentiality of Alcohol and Drug Abuse Patient Records regulations: The Federal rules restrict any use of the information to criminally investigate or prosecute any alcohol or drug abuse patient.[facility] HospitalIn the event this information is protected by the Federal Confidentiality of Alcohol and Drug Abuse Patient Records regulations: The Federal rules restrict any use of the information to criminally investigate or prosecute any alcohol or drug abuse patient.[facility] HospitalIn the event this information is protected by the Federal Confidentiality of Alcohol and Drug Abuse Patient Records regulations: The Federal rules restrict any use of the information to criminally investigate or prosecute any alcohol or drug abuse patient.[facility]In the event this information is protected by the Federal Confidentiality of Alcohol and Drug Abuse Patient Records regulations: The Federal rules restrict any use of the information to criminally investigate or prosecute any alcohol or drug abuse patient.[facility] HospitalIn the event this information is protected by the Federal Confidentiality of Alcohol and Drug Abuse Patient Records regulations: The Federal rules restrict any use of the information to criminally investigate or prosecute any alcohol or drug abuse patient.[facility] HospitalIn the event this information is protected by the Federal Confidentiality of Alcohol and Drug Abuse Patient Records regulations: The Federal rules restrict any use of the information to criminally investigate or prosecute any alcohol or drug abuse patient.[facility] HospitalIn the event this information is protected by the Federal Confidentiality of Alcohol and Drug Abuse Patient Records regulations: The Federal rules restrict any use of the information to criminally investigate or prosecute any alcohol or drug abuse patient.[facility] HospitalIn the event this information is protected by the Federal Confidentiality of Alcohol and Drug Abuse Patient Records regulations: The Federal rules restrict any use of the information to criminally investigate or prosecute any alcohol or drug abuse patient.[facility] HospitalIn the event this information is protected by the Federal Confidentiality of Alcohol and Drug Abuse Patient Records regulations: The Federal rules restrict any use of the information to criminally investigate or prosecute any alcohol or drug abuse patient.[facility] HospitalIn the event this information is protected by the Federal Confidentiality of Alcohol and Drug Abuse Patient Records regulations: The Federal rules restrict any use of the information to criminally investigate or prosecute any alcohol or drug abuse patient.[facility] HospitalIn the event this information is protected by the Federal Confidentiality of Alcohol and Drug Abuse Patient Records regulations: The Federal rules restrict any use of the information to criminally investigate or prosecute any alcohol or drug abuse patient.[facility] HospitalIn the event this information is protected by the Federal Confidentiality of Alcohol and Drug Abuse Patient Records regulations: The Federal rules restrict any use of the information to criminally investigate or prosecute any alcohol or drug abuse patient.[facility] HospitalIn the event this information is protected by the Federal Confidentiality of Alcohol and Drug Abuse Patient Records regulations: The Federal rules restrict any use of the information to criminally investigate or prosecute any alcohol or drug abuse patient.[facility] HospitalIn the event this information is protected by the Federal Confidentiality of Alcohol and Drug Abuse Patient Records regulations: The Federal rules restrict any use of the information to criminally investigate or prosecute any alcohol or drug abuse patient.[facility] HospitalIn the event this information is protected by the Federal Confidentiality of Alcohol and Drug Abuse Patient Records regulations: The Federal rules restrict any use of the information to criminally investigate or prosecute any alcohol or drug abuse patient.[facility] HospitalIn the event this information is protected by the Federal Confidentiality of Alcohol and Drug Abuse Patient Records regulations: The Federal rules restrict any use of the information to criminally investigate or prosecute any alcohol or drug abuse patient.[facility] HospitalIn the event this information is protected by the Federal Confidentiality of Alcohol and Drug Abuse Patient Records regulations: The Federal rules restrict any use of the information to criminally investigate or prosecute any alcohol or drug abuse patient.[facility] HospitalIn the event this information is protected by the Federal Confidentiality of Alcohol and Drug Abuse Patient Records regulations: The Federal rules restrict any use of the information to criminally investigate or prosecute any alcohol or drug abuse patient.[facility] HospitalIn the event this information is protected by the Federal Confidentiality of Alcohol and Drug Abuse Patient Records regulations: The Federal rules restrict any use of the information to criminally investigate or prosecute any alcohol or drug abuse patient.[facility] HospitalIn the event this information is protected by the Federal Confidentiality of Alcohol and Drug Abuse Patient Records regulations: The Federal rules restrict any use of the information to criminally investigate or prosecute any alcohol or drug abuse patient.[facility] HospitalIn the event this information is protected by the Federal Confidentiality of Alcohol and Drug Abuse Patient Records regulations: The Federal rules restrict any use of the information to criminally investigate or prosecute any alcohol or drug abuse patient.[facility] HospitalIn the event this information is protected by the Federal Confidentiality of Alcohol and Drug Abuse Patient Records regulations: The Federal rules restrict any use of the information to criminally investigate or prosecute any alcohol or drug abuse patient.[facility] HospitalIn the event this information is protected by the Federal Confidentiality of Alcohol and Drug Abuse Patient Records regulations: The Federal rules restrict any use of the information to criminally investigate or prosecute any alcohol or drug abuse patient.[facility] HospitalIn the event this information is protected by the Federal Confidentiality of Alcohol and Drug Abuse Patient Records regulations: The Federal rules restrict any use of the information to criminally investigate or prosecute any alcohol or drug abuse patient.[facility] HospitalIn the event this information is protected by the Federal Confidentiality of Alcohol and Drug Abuse Patient Records regulations: The Federal rules restrict any use of the information to criminally investigate or prosecute any alcohol or drug abuse patient.[facility] HospitalIn the event this information is protected by the Federal Confidentiality of Alcohol and Drug Abuse Patient Records regulations: The Federal rules restrict any use of the information to criminally investigate or prosecute any alcohol or drug abuse patient.[facility] HospitalIn the event this information is protected by the Federal Confidentiality of Alcohol and Drug Abuse Patient Records regulations: The Federal rules restrict any use of the information to criminally investigate or prosecute any alcohol or drug abuse patient.[facility] HospitalIn the event this information is protected by the Federal Confidentiality of Alcohol and Drug Abuse Patient Records regulations: The Federal rules restrict any use of the information to criminally investigate or prosecute any alcohol or drug abuse patient.[facility] HospitalIn the event this information is protected by the Federal Confidentiality of Alcohol and Drug Abuse Patient Records regulations: The Federal rules restrict any use of the information to criminally investigate or prosecute any alcohol or drug abuse patient.[facility] HospitalIn the event this information is protected by the Federal Confidentiality of Alcohol and Drug Abuse Patient Records regulations: The Federal rules restrict any use of the information to criminally investigate or prosecute any alcohol or drug abuse patient.[facility] HospitalIn the event this information is protected by the Federal Confidentiality of Alcohol and Drug Abuse Patient Records regulations: The Federal rules restrict any use of the information to criminally investigate or prosecute any alcohol or drug abuse patient.[facility] HospitalIn the event this information is protected by the Federal Confidentiality of Alcohol and Drug Abuse Patient Records regulations: The Federal rules restrict any use of the information to criminally investigate or prosecute any alcohol or drug abuse patient.[facility] HospitalIn the event this information is protected by the Federal Confidentiality of Alcohol and Drug Abuse Patient Records regulations: The Federal rules restrict any use of the information to criminally investigate or prosecute any alcohol or drug abuse patient.[facility] HospitalIn the event this information is protected by the Federal Confidentiality of Alcohol and Drug Abuse Patient Records regulations: The Federal rules restrict any use of the information to criminally investigate or prosecute any alcohol or drug abuse patient.[facility] HospitalIn the event this information is protected by the Federal Confidentiality of Alcohol and Drug Abuse Patient Records regulations: The Federal rules restrict any use of the information to criminally investigate or prosecute any alcohol or drug abuse patient.[facility] HospitalIn the event this information is protected by the Federal Confidentiality of Alcohol and Drug Abuse Patient Records regulations: The Federal rules restrict any use of the information to criminally investigate or prosecute any alcohol or drug abuse patient.[facility] HospitalIn the event this information is protected by the Federal Confidentiality of Alcohol and Drug Abuse Patient Records regulations: The Federal rules restrict any use of the information to criminally investigate or prosecute any alcohol or drug abuse patient.[facility] HospitalIn the event this information is protected by the Federal Confidentiality of Alcohol and Drug Abuse Patient Records regulations: The Federal rules restrict any use of the information to criminally investigate or prosecute any alcohol or drug abuse patient.[facility] HospitalIn the event this information is protected by the Federal Confidentiality of Alcohol and Drug Abuse Patient Records regulations: The Federal rules restrict any use of the information to criminally investigate or prosecute any alcohol or drug abuse patient.[facility] HospitalIn the event this information is protected by the Federal Confidentiality of Alcohol and Drug Abuse Patient Records regulations: The Federal rules restrict any use of the information to criminally investigate or prosecute any alcohol or drug abuse patient.[facility] HospitalIn the event this information is protected by the Federal Confidentiality of Alcohol and Drug Abuse Patient Records regulations: The Federal rules restrict any use of the information to criminally investigate or prosecute any alcohol or drug abuse patient.[facility] HospitalIn the event this information is protected by the Federal Confidentiality of Alcohol and Drug Abuse Patient Records regulations: The Federal rules restrict any use of the information to criminally investigate or prosecute any alcohol or drug abuse patient.[facility] HospitalIn the event this information is protected by the Federal Confidentiality of Alcohol and Drug Abuse Patient Records regulations: The Federal rules restrict any use of the information to criminally investigate or prosecute any alcohol or drug abuse patient.[facility] HospitalIn the event this information is protected by the Federal Confidentiality of Alcohol and Drug Abuse Patient Records regulations: The Federal rules restrict any use of the information to criminally investigate or prosecute any alcohol or drug abuse patient.[facility] HospitalIn the event this information is protected by the Federal Confidentiality of Alcohol and Drug Abuse Patient Records regulations: The Federal rules restrict any use of the information to criminally investigate or prosecute any alcohol or drug abuse patient.[facility] HospitalIn the event this information is protected by the Federal Confidentiality of Alcohol and Drug Abuse Patient Records regulations: The Federal rules restrict any use of the information to criminally investigate or prosecute any alcohol or drug abuse patient.[facility] HospitalIn the event this information is protected by the Federal Confidentiality of Alcohol and Drug Abuse Patient Records regulations: The Federal rules restrict any use of the information to criminally investigate or prosecute any alcohol or drug abuse patient.[facility] HospitalIn the event this information is protected by the Federal Confidentiality of Alcohol and Drug Abuse Patient Records regulations: The Federal rules restrict any use of the information to criminally investigate or prosecute any alcohol or drug abuse patient.[facility] HospitalIn the event this information is protected by the Federal Confidentiality of Alcohol and Drug Abuse Patient Records regulations: The Federal rules restrict any use of the information to criminally investigate or prosecute any alcohol or drug abuse patient.[facility] HospitalIn the event this information is protected by the Federal Confidentiality of Alcohol and Drug Abuse Patient Records regulations: The Federal rules restrict any use of the information to criminally investigate or prosecute any alcohol or drug abuse patient.[facility] HospitalIn the event this information is protected by the Federal Confidentiality of Alcohol and Drug Abuse Patient Records regulations: The Federal rules restrict any use of the information to criminally investigate or prosecute any alcohol or drug abuse patient.[facility] HospitalIn the event this information is protected by the Federal Confidentiality of Alcohol and Drug Abuse Patient Records regulations: The Federal rules restrict any use of the information to criminally investigate or prosecute any alcohol or drug abuse patient.[facility] HospitalIn the event this information is protected by the Federal Confidentiality of Alcohol and Drug Abuse Patient Records regulations: The Federal rules restrict any use of the information to criminally investigate or prosecute any alcohol or drug abuse patient.[facility] HospitalIn the event this information is protected by the Federal Confidentiality of Alcohol and Drug Abuse Patient Records regulations: The Federal rules restrict any use of the information to criminally investigate or prosecute any alcohol or drug abuse patient.[facility] HospitalIn the event this information is protected by the Federal Confidentiality of Alcohol and Drug Abuse Patient Records regulations: The Federal rules restrict any use of the information to criminally investigate or prosecute any alcohol or drug abuse patient.[facility] HospitalIn the event this information is protected by the Federal Confidentiality of Alcohol and Drug Abuse Patient Records regulations: The Federal rules restrict any use of the information to criminally investigate or prosecute any alcohol or drug abuse patient.[facility] HospitalIn the event this information is protected by the Federal Confidentiality of Alcohol and Drug Abuse Patient Records regulations: The Federal rules restrict any use of the information to criminally investigate or prosecute any alcohol or drug abuse patient.[facility] HospitalIn the event this information is protected by the Federal Confidentiality of Alcohol and Drug Abuse Patient Records regulations: The Federal rules restrict any use of the information to criminally investigate or prosecute any alcohol or drug abuse patient.[facility] HospitalIn the event this information is protected by the Federal Confidentiality of Alcohol and Drug Abuse Patient Records regulations: The Federal rules restrict any use of the information to criminally investigate or prosecute any alcohol or drug abuse patient.[facility] HospitalIn the event this information is protected by the Federal Confidentiality of Alcohol and Drug Abuse Patient Records regulations: The Federal rules restrict any use of the information to criminally investigate or prosecute any alcohol or drug abuse patient.[facility] HospitalIn the event this information is protected by the Federal Confidentiality of Alcohol and Drug Abuse Patient Records regulations: The Federal rules restrict any use of the information to criminally investigate or prosecute any alcohol or drug abuse patient.[facility] HospitalIn the event this information is protected by the Federal Confidentiality of Alcohol and Drug Abuse Patient Records regulations: The Federal rules restrict any use of the information to criminally investigate or prosecute any alcohol or drug abuse patient.[facility] HospitalIn the event this information is protected by the Federal Confidentiality of Alcohol and Drug Abuse Patient Records regulations: The Federal rules restrict any use of the information to criminally investigate or prosecute any alcohol or drug abuse patient.[facility] HospitalIn the event this information is protected by the Federal Confidentiality of Alcohol and Drug Abuse Patient Records regulations: The Federal rules restrict any use of the information to criminally investigate or prosecute any alcohol or drug abuse patient.[facility] HospitalIn the event this information is protected by the Federal Confidentiality of Alcohol and Drug Abuse Patient Records regulations: The Federal rules restrict any use of the information to criminally investigate or prosecute any alcohol or drug abuse patient.[facility] HospitalIn the event this information is protected by the Federal Confidentiality of Alcohol and Drug Abuse Patient Records regulations: The Federal rules restrict any use of the information to criminally investigate or prosecute any alcohol or drug abuse patient.[facility] HospitalIn the event this information is protected by the Federal Confidentiality of Alcohol and Drug Abuse Patient Records regulations: The Federal rules restrict any use of the information to criminally investigate or prosecute any alcohol or drug abuse patient.[facility] HospitalIn the event this information is protected by the Federal Confidentiality of Alcohol and Drug Abuse Patient Records regulations: The Federal rules restrict any use of the information to criminally investigate or prosecute any alcohol or drug abuse patient.[facility] HospitalIn the event this information is protected by the Federal Confidentiality of Alcohol and Drug Abuse Patient Records regulations: The Federal rules restrict any use of the information to criminally investigate or prosecute any alcohol or drug abuse patient.[facility] HospitalIn the event this information is protected by the Federal Confidentiality of Alcohol and Drug Abuse Patient Records regulations: The Federal rules restrict any use of the information to criminally investigate or prosecute any alcohol or drug abuse patient.[facility] HospitalIn the event this information is protected by the Federal Confidentiality of Alcohol and Drug Abuse Patient Records regulations: The Federal rules restrict any use of the information to criminally investigate or prosecute any alcohol or drug abuse patient.[facility] HospitalIn the event this information is protected by the Federal Confidentiality of Alcohol and Drug Abuse Patient Records regulations: The Federal rules restrict any use of the information to criminally investigate or prosecute any alcohol or drug abuse patient.[facility] HospitalIn the event this information is protected by the Federal Confidentiality of Alcohol and Drug Abuse Patient Records regulations: The Federal rules restrict any use of the information to criminally investigate or prosecute any alcohol or drug abuse patient.[facility] HospitalIn the event this information is protected by the Federal Confidentiality of Alcohol and Drug Abuse Patient Records regulations: The Federal rules restrict any use of the information to criminally investigate or prosecute any alcohol or drug abuse patient.[facility] HospitalIn the event this information is protected by the Federal Confidentiality of Alcohol and Drug Abuse Patient Records regulations: The Federal rules restrict any use of the information to criminally investigate or prosecute any alcohol or drug abuse patient.[facility] HospitalIn the event this information is protected by the Federal Confidentiality of Alcohol and Drug Abuse Patient Records regulations: The Federal rules restrict any use of the information to criminally investigate or prosecute any alcohol or drug abuse patient.[facility] HospitalIn the event this information is protected by the Federal Confidentiality of Alcohol and Drug Abuse Patient Records regulations: The Federal rules restrict any use of the information to criminally investigate or prosecute any alcohol or drug abuse patient.[facility]In the event this information is protected by the Federal Confidentiality of Alcohol and Drug Abuse Patient Records regulations: The Federal rules restrict any use of the information to criminally investigate or prosecute any alcohol or drug abuse patient.[facility]In the event this information is protected by the Federal Confidentiality of Alcohol and Drug Abuse Patient Records regulations: The Federal rules restrict any use of the information to criminally investigate or prosecute any alcohol or drug abuse patient.[facility]In the event this information is protected by the Federal Confidentiality of Alcohol and Drug Abuse Patient Records regulations: The Federal rules restrict any use of the information to criminally investigate or prosecute any alcohol or drug abuse patient.[facility] HospitalIn the event this information is protected by the Federal Confidentiality of Alcohol and Drug Abuse Patient Records regulations: The Federal rules restrict any use of the information to criminally investigate or prosecute any alcohol or drug abuse patient.[facility]In the event this information is protected by the Federal Confidentiality of Alcohol and Drug Abuse Patient Records regulations: The Federal rules restrict any use of the information to criminally investigate or prosecute any alcohol or drug abuse patient.[facility]In the event this information is protected by the Federal Confidentiality of Alcohol and Drug Abuse Patient Records regulations: The Federal rules restrict any use of the information to criminally investigate or prosecute any alcohol or drug abuse patient.[facility] HospitalIn the event this information is protected by the Federal Confidentiality of Alcohol and Drug Abuse Patient Records regulations: The Federal rules restrict any use of the information to criminally investigate or prosecute any alcohol or drug abuse patient.[facility]In the event this information is protected by the Federal Confidentiality of Alcohol and Drug Abuse Patient Records regulations: The Federal rules restrict any use of the information to criminally investigate or prosecute any alcohol or drug abuse patient.[facility] HospitalIn the event this information is protected by the Federal Confidentiality of Alcohol and Drug Abuse Patient Records regulations: The Federal rules restrict any use of the information to criminally investigate or prosecute any alcohol or drug abuse patient.[facility] HospitalIn the event this information is protected by the Federal Confidentiality of Alcohol and Drug Abuse Patient Records regulations: The Federal rules restrict any use of the information to criminally investigate or prosecute any alcohol or drug abuse patient.[facility] HospitalIn the event this information is protected by the Federal Confidentiality of Alcohol and Drug Abuse Patient Records regulations: The Federal rules restrict any use of the information to criminally investigate or prosecute any alcohol or drug abuse patient.[facility] HospitalIn the event this information is protected by the Federal Confidentiality of Alcohol and Drug Abuse Patient Records regulations: The Federal rules restrict any use of the information to criminally investigate or prosecute any alcohol or drug abuse patient.[facility] HospitalIn the event this information is protected by the Federal Confidentiality of Alcohol and Drug Abuse Patient Records regulations: The Federal rules restrict any use of the information to criminally investigate or prosecute any alcohol or drug abuse patient.[facility] HospitalIn the event this information is protected by the Federal Confidentiality of Alcohol and Drug Abuse Patient Records regulations: The Federal rules restrict any use of the information to criminally investigate or prosecute any alcohol or drug abuse patient.[facility] HospitalIn the event this information is protected by the Federal Confidentiality of Alcohol and Drug Abuse Patient Records regulations: The Federal rules restrict any use of the information to criminally investigate or prosecute any alcohol or drug abuse patient.[facility] HospitalIn the event this information is protected by the Federal Confidentiality of Alcohol and Drug Abuse Patient Records regulations: The Federal rules restrict any use of the information to criminally investigate or prosecute any alcohol or drug abuse patient.[facility] HospitalIn the event this information is protected by the Federal Confidentiality of Alcohol and Drug Abuse Patient Records regulations: The Federal rules restrict any use of the information to criminally investigate or prosecute any alcohol or drug abuse patient.[facility] HospitalIn the event this information is protected by the Federal Confidentiality of Alcohol and Drug Abuse Patient Records regulations: The Federal rules restrict any use of the information to criminally investigate or prosecute any alcohol or drug abuse patient.[facility] HospitalIn the event this information is protected by the Federal Confidentiality of Alcohol and Drug Abuse Patient Records regulations: The Federal rules restrict any use of the information to criminally investigate or prosecute any alcohol or drug abuse patient.[facility] HospitalIn the event this information is protected by the Federal Confidentiality of Alcohol and Drug Abuse Patient Records regulations: The Federal rules restrict any use of the information to criminally investigate or prosecute any alcohol or drug abuse patient.[facility] HospitalIn the event this information is protected by the Federal Confidentiality of Alcohol and Drug Abuse Patient Records regulations: The Federal rules restrict any use of the information to criminally investigate or prosecute any alcohol or drug abuse patient.[facility] HospitalIn the event this information is protected by the Federal Confidentiality of Alcohol and Drug Abuse Patient Records regulations: The Federal rules restrict any use of the information to criminally investigate or prosecute any alcohol or drug abuse patient.[facility] HospitalIn the event this information is protected by the Federal Confidentiality of Alcohol and Drug Abuse Patient Records regulations: The Federal rules restrict any use of the information to criminally investigate or prosecute any alcohol or drug abuse patient.[facility] HospitalIn the event this information is protected by the Federal Confidentiality of Alcohol and Drug Abuse Patient Records regulations: The Federal rules restrict any use of the information to criminally investigate or prosecute any alcohol or drug abuse patient.[facility] HospitalIn the event this information is protected by the Federal Confidentiality of Alcohol and Drug Abuse Patient Records regulations: The Federal rules restrict any use of the information to criminally investigate or prosecute any alcohol or drug abuse patient.[facility] HospitalIn the event this information is protected by the Federal Confidentiality of Alcohol and Drug Abuse Patient Records regulations: The Federal rules restrict any use of the information to criminally investigate or prosecute any alcohol or drug abuse patient.[facility] HospitalIn the event this information is protected by the Federal Confidentiality of Alcohol and Drug Abuse Patient Records regulations: The Federal rules restrict any use of the information to criminally investigate or prosecute any alcohol or drug abuse patient.[facility] HospitalIn the event this information is protected by the Federal Confidentiality of Alcohol and Drug Abuse Patient Records regulations: The Federal rules restrict any use of the information to criminally investigate or prosecute any alcohol or drug abuse patient.[facility] HospitalIn the event this information is protected by the Federal Confidentiality of Alcohol and Drug Abuse Patient Records regulations: The Federal rules restrict any use of the information to criminally investigate or prosecute any alcohol or drug abuse patient.[facility] HospitalIn the event this information is protected by the Federal Confidentiality of Alcohol and Drug Abuse Patient Records regulations: The Federal rules restrict any use of the information to criminally investigate or prosecute any alcohol or drug abuse patient.[facility] HospitalIn the event this information is protected by the Federal Confidentiality of Alcohol and Drug Abuse Patient Records regulations: The Federal rules restrict any use of the information to criminally investigate or prosecute any alcohol or drug abuse patient.[facility] HospitalIn the event this information is protected by the Federal Confidentiality of Alcohol and Drug Abuse Patient Records regulations: The Federal rules restrict any use of the information to criminally investigate or prosecute any alcohol or drug abuse patient.[facility] HospitalIn the event this information is protected by the Federal Confidentiality of Alcohol and Drug Abuse Patient Records regulations: The Federal rules restrict any use of the information to criminally investigate or prosecute any alcohol or drug abuse patient.[facility] HospitalIn the event this information is protected by the Federal Confidentiality of Alcohol and Drug Abuse Patient Records regulations: The Federal rules restrict any use of the information to criminally investigate or prosecute any alcohol or drug abuse patient.[facility] HospitalIn the event this information is protected by the Federal Confidentiality of Alcohol and Drug Abuse Patient Records regulations: The Federal rules restrict any use of the information to criminally investigate or prosecute any alcohol or drug abuse patient.[facility] HospitalIn the event this information is protected by the Federal Confidentiality of Alcohol and Drug Abuse Patient Records regulations: The Federal rules restrict any use of the information to criminally investigate or prosecute any alcohol or drug abuse patient.[facility] HospitalIn the event this information is protected by the Federal Confidentiality of Alcohol and Drug Abuse Patient Records regulations: The Federal rules restrict any use of the information to criminally investigate or prosecute any alcohol or drug abuse patient.[facility] HospitalIn the event this information is protected by the Federal Confidentiality of Alcohol and Drug Abuse Patient Records regulations: The Federal rules restrict any use of the information to criminally investigate or prosecute any alcohol or drug abuse patient.[facility] HospitalIn the event this information is protected by the Federal Confidentiality of Alcohol and Drug Abuse Patient Records regulations: The Federal rules restrict any use of the information to criminally investigate or prosecute any alcohol or drug abuse patient.[facility] HospitalIn the event this information is protected by the Federal Confidentiality of Alcohol and Drug Abuse Patient Records regulations: The Federal rules restrict any use of the information to criminally investigate or prosecute any alcohol or drug abuse patient.[facility] HospitalIn the event this information is protected by the Federal Confidentiality of Alcohol and Drug Abuse Patient Records regulations: The Federal rules restrict any use of the information to criminally investigate or prosecute any alcohol or drug abuse patient.[facility] HospitalIn the event this information is protected by the Federal Confidentiality of Alcohol and Drug Abuse Patient Records regulations: The Federal rules restrict any use of the information to criminally investigate or prosecute any alcohol or drug abuse patient.[facility] HospitalIn the event this information is protected by the Federal Confidentiality of Alcohol and Drug Abuse Patient Records regulations: The Federal rules restrict any use of the information to criminally investigate or prosecute any alcohol or drug abuse patient.[facility] HospitalIn the event this information is protected by the Federal Confidentiality of Alcohol and Drug Abuse Patient Records regulations: The Federal rules restrict any use of the information to criminally investigate or prosecute any alcohol or drug abuse patient.[facility] HospitalIn the event this information is protected by the Federal Confidentiality of Alcohol and Drug Abuse Patient Records regulations: The Federal rules restrict any use of the information to criminally investigate or prosecute any alcohol or drug abuse patient.[facility] HospitalIn the event this information is protected by the Federal Confidentiality of Alcohol and Drug Abuse Patient Records regulations: The Federal rules restrict any use of the information to criminally investigate or prosecute any alcohol or drug abuse patient.[facility] HospitalIn the event this information is protected by the Federal Confidentiality of Alcohol and Drug Abuse Patient Records regulations: The Federal rules restrict any use of the information to criminally investigate or prosecute any alcohol or drug abuse patient.[facility] HospitalIn the event this information is protected by the Federal Confidentiality of Alcohol and Drug Abuse Patient Records regulations: The Federal rules restrict any use of the information to criminally investigate or prosecute any alcohol or drug abuse patient.[facility] HospitalIn the event this information is protected by the Federal Confidentiality of Alcohol and Drug Abuse Patient Records regulations: The Federal rules restrict any use of the information to criminally investigate or prosecute any alcohol or drug abuse patient.[facility] HospitalIn the event this information is protected by the Federal Confidentiality of Alcohol and Drug Abuse Patient Records regulations: The Federal rules restrict any use of the information to criminally investigate or prosecute any alcohol or drug abuse patient.[facility] HospitalIn the event this information is protected by the Federal Confidentiality of Alcohol and Drug Abuse Patient Records regulations: The Federal rules restrict any use of the information to criminally investigate or prosecute any alcohol or drug abuse patient.[facility] HospitalIn the event this information is protected by the Federal Confidentiality of Alcohol and Drug Abuse Patient Records regulations: The Federal rules restrict any use of the information to criminally investigate or prosecute any alcohol or drug abuse patient.[facility] HospitalIn the event this information is protected by the Federal Confidentiality of Alcohol and Drug Abuse Patient Records regulations: The Federal rules restrict any use of the information to criminally investigate or prosecute any alcohol or drug abuse patient.[facility] HospitalIn the event this information is protected by the Federal Confidentiality of Alcohol and Drug Abuse Patient Records regulations: The Federal rules restrict any use of the information to criminally investigate or prosecute any alcohol or drug abuse patient.[facility] HospitalIn the event this information is protected by the Federal Confidentiality of Alcohol and Drug Abuse Patient Records regulations: The Federal rules restrict any use of the information to criminally investigate or prosecute any alcohol or drug abuse patient.[facility] HospitalIn the event this information is protected by the Federal Confidentiality of Alcohol and Drug Abuse Patient Records regulations: The Federal rules restrict any use of the information to criminally investigate or prosecute any alcohol or drug abuse patient.[facility] HospitalIn the event this information is protected by the Federal Confidentiality of Alcohol and Drug Abuse Patient Records regulations: The Federal rules restrict any use of the information to criminally investigate or prosecute any alcohol or drug abuse patient.[facility] HospitalIn the event this information is protected by the Federal Confidentiality of Alcohol and Drug Abuse Patient Records regulations: The Federal rules restrict any use of the information to criminally investigate or prosecute any alcohol or drug abuse patient.[facility] HospitalIn the event this information is protected by the Federal Confidentiality of Alcohol and Drug Abuse Patient Records regulations: The Federal rules restrict any use of the information to criminally investigate or prosecute any alcohol or drug abuse patient.[facility] HospitalIn the event this information is protected by the Federal Confidentiality of Alcohol and Drug Abuse Patient Records regulations: The Federal rules restrict any use of the information to criminally investigate or prosecute any alcohol or drug abuse patient.[facility] HospitalIn the event this information is protected by the Federal Confidentiality of Alcohol and Drug Abuse Patient Records regulations: The Federal rules restrict any use of the information to criminally investigate or prosecute any alcohol or drug abuse patient.[facility] HospitalIn the event this information is protected by the Federal Confidentiality of Alcohol and Drug Abuse Patient Records regulations: The Federal rules restrict any use of the information to criminally investigate or prosecute any alcohol or drug abuse patient.[facility] HospitalIn the event this information is protected by the Federal Confidentiality of Alcohol and Drug Abuse Patient Records regulations: The Federal rules restrict any use of the information to criminally investigate or prosecute any alcohol or drug abuse patient.[facility] HospitalIn the event this information is protected by the Federal Confidentiality of Alcohol and Drug Abuse Patient Records regulations: The Federal rules restrict any use of the information to criminally investigate or prosecute any alcohol or drug abuse patient.[facility] HospitalIn the event this information is protected by the Federal Confidentiality of Alcohol and Drug Abuse Patient Records regulations: The Federal rules restrict any use of the information to criminally investigate or prosecute any alcohol or drug abuse patient.[facility] HospitalIn the event this information is protected by the Federal Confidentiality of Alcohol and Drug Abuse Patient Records regulations: The Federal rules restrict any use of the information to criminally investigate or prosecute any alcohol or drug abuse patient.[facility] HospitalIn the event this information is protected by the Federal Confidentiality of Alcohol and Drug Abuse Patient Records regulations: The Federal rules restrict any use of the information to criminally investigate or prosecute any alcohol or drug abuse patient.[facility] HospitalIn the event this information is protected by the Federal Confidentiality of Alcohol and Drug Abuse Patient Records regulations: The Federal rules restrict any use of the information to criminally investigate or prosecute any alcohol or drug abuse patient.[facility] HospitalIn the event this information is protected by the Federal Confidentiality of Alcohol and Drug Abuse Patient Records regulations: The Federal rules restrict any use of the information to criminally investigate or prosecute any alcohol or drug abuse patient.[facility] HospitalIn the event this information is protected by the Federal Confidentiality of Alcohol and Drug Abuse Patient Records regulations: The Federal rules restrict any use of the information to criminally investigate or prosecute any alcohol or drug abuse patient.[facility] HospitalIn the event this information is protected by the Federal Confidentiality of Alcohol and Drug Abuse Patient Records regulations: The Federal rules restrict any use of the information to criminally investigate or prosecute any alcohol or drug abuse patient.[facility] HospitalIn the event this information is protected by the Federal Confidentiality of Alcohol and Drug Abuse Patient Records regulations: The Federal rules restrict any use of the information to criminally investigate or prosecute any alcohol or drug abuse patient.[facility] HospitalIn the event this information is protected by the Federal Confidentiality of Alcohol and Drug Abuse Patient Records regulations: The Federal rules restrict any use of the information to criminally investigate or prosecute any alcohol or drug abuse patient.[facility] HospitalIn the event this information is protected by the Federal Confidentiality of Alcohol and Drug Abuse Patient Records regulations: The Federal rules restrict any use of the information to criminally investigate or prosecute any alcohol or drug abuse patient.[facility] HospitalIn the event this information is protected by the Federal Confidentiality of Alcohol and Drug Abuse Patient Records regulations: The Federal rules restrict any use of the information to criminally investigate or prosecute any alcohol or drug abuse patient.[facility] HospitalIn the event this information is protected by the Federal Confidentiality of Alcohol and Drug Abuse Patient Records regulations: The Federal rules restrict any use of the information to criminally investigate or prosecute any alcohol or drug abuse patient.[facility] HospitalIn the event this information is protected by the Federal Confidentiality of Alcohol and Drug Abuse Patient Records regulations: The Federal rules restrict any use of the information to criminally investigate or prosecute any alcohol or drug abuse patient.[facility] HospitalIn the event this information is protected by the Federal Confidentiality of Alcohol and Drug Abuse Patient Records regulations: The Federal rules restrict any use of the information to criminally investigate or prosecute any alcohol or drug abuse patient.[facility] HospitalIn the event this information is protected by the Federal Confidentiality of Alcohol and Drug Abuse Patient Records regulations: The Federal rules restrict any use of the information to criminally investigate or prosecute any alcohol or drug abuse patient.[facility] HospitalIn the event this information is protected by the Federal Confidentiality of Alcohol and Drug Abuse Patient Records regulations: The Federal rules restrict any use of the information to criminally investigate or prosecute any alcohol or drug abuse patient.[facility] Care Teams (unrecognized sec tion and content) Team Status: Active Member Role Status Dates Gay De La Torre NP-C Primary Care Provider Active Team Status: Inactive Member Role Status Dates Gay De La Torre NP-C Primary Care Provider Active Start: November 30, 2024 End: November 30, 2024Pefrank Arnett NPAttchristopher ProviderActiveStart: November 30, 2024 End: November 30, 2024 Team Status: Inactive Member Role Status Dates Gay De La Torre NP-Ananya Primary Care Provider Active Start: December 12, 2024 End: December 12, 2024Luiz Gee ProviderActiveStart: December 12, 2024 End: December 12, 2024 Team Status: Inactive Member Role Status Dates Gay De La Torre NP-C Primary Care Provider Active Start: January 17, 2025 End: January 17, 2025Jm Casarez ProviderActiveStart: January 17, 2025 End: January 17, 2025 Team Status: Active Member Role Status Dates Gay De La Torre NP-C Primary Care Provider Active Start: January 31, 2025 Zarina Pickering ProviderActiveStart: January 31, 2025 Amy Pickering ProviderActiveStart: January 31, 2025 Team Status: Inactive Member Role Status Dates Gay Natalie Britt , HATCHERY SUPERVISOR-C Primary Care Provider Active Start: February 14, 2025 End: February 14, 2025Margie Arnett NPAttending ProviderActiveStart: February 14, 2025 End: February 14, 2025 Team Status: Inactive Member Role Status Dates Mathew Ji MD Attending Provider Active St art: February 26, 2025 End: February 26, 2025 Team Status: Inactive Member Role Status Dates Bandar Portillo APRN Attending Provider Active Start: February 28, 2025 End: February 28, 2025Gay De La Torre , HATCHERY SUPERVISOR-CPrimary Care ProviderActiveStart: February 28, 2025 End: February 28, 2025 Team Status: Active Member Role Status Dates Gay De La Torre HATCHERY SUPERVISOR-C Primary Care Provider Active Start: November 21, 2024 Adolfo Kang , MDAttending ProviderActiveStart: November 21, 2024 Team Status: Inactive Member Role Status Dates Gay De La Torre HATCHERY SUPERVISOR-C Primary Care Provider Active Start: November 21, 2024 End: November 21, 2024Shana Kang , MDAttending ProviderActiveStart: November 21, 2024 End: November 21, 2024 Team Status: Active Member Role Status Dates Gay De La Torre HATCHERY SUPERVISOR-C Primary Care Provider Active Start: November 22, 2024 Janes Barfield MDAttending ProviderActiveStart: November 22, 2024 Team Status: Active Member Role Status Dates Lui Salomon MD Primary Care Provider Active Team Status: Inactive Member Role Status Dates Lui Salomon MD Primary Care Provider Active Start: September 22, 2023 End: September 22, 2023Ketty Mccall MDAttending ProviderActiveStart: September 22, 2023 End: September 22, 2023 Team Status: Inactive Member Role Status Dates Lui Salomon MD Primary Care Provider Active Start: October 20, 2023 End: October 20, 2023Microdrick Baer MDAttending ProviderActiveStart: October 20, 2023 End: October 20, 2023 Team Status: Inactive Member Role Status Dates Lui Salomon MD Primary Care Provider Active Start: November 04, 2023 End: November 04, 2023Microdrick Baer MDAttending ProviderActiveStart: November 04, 2023 End: November 04, 2023Team MemberRelationshipSpecialtyStart DateEnd Date Gay De La Torre, MICROBIOLOGY TECHNICIAN.DIGITAL MEDIA ANALYST [address] [place] [address] PCP - GeneralFamily Practice10/24/21Team MemberRelationshipSpecialtyStart DateEnd Date Gay De La Torre, MICROBIOLOGY TECHNICIAN.DIGITAL MEDIA ANALYST [address] [place] [address] PCP - GeneralAd[facility] Health Systemly Medicine10/24/21 Manuel Ferris MD [address] [place] [address] ReferringFami Medicine02/12/22Team MemberRelationshipSpecialtyStart DateEnd Date Manuel Ferris MD [address] [place] [address] PCP - Generalmily [id number]/7/22 Manuel Ferris MD [address] [place] [address] ReferringFamily Medicine02/12/22Team MemberRelationshipSpecialtyStart DateEnd Date Manuel Ferris MD [address] [place] [address] PCP - Generalmily Shiggmwy44/7/22 Manuel Ferris MD [address] [place] [address] ReferringFamily Medicine02/12/22Team MemberRelationshipSpecialtyStart DateEnd Date Manuel Ferris MD [address] [place] [address] PCP - GeneralFamily [id number]/7/22 Manuel Ferris MD [address] [facility] [place] [address] ReferringFamily Medicine02/12/22Team MemberRelationshipSpecialtyStart DateEnd Date Manuel Ferris MD [address] [facility] [place] [address] PCP - GeneralFamily [id number]/7/22 Manuel Ferris MD [address] [facility] [place] [address] ReferringFamily Medicine02/12/22Team MemberRelationshipSpecialtyStart DateEnd Date Manuel Ferris MD [address] [place] [address] PCP - GeneralFamily Hhuokfco84/7/22 Manuel Ferris MD [address] [facility] [place] [id number] ReferringFamily Medicine02/12/22Team MemberRelationshipSpecialtyStart DateEnd Date Manuel Ferris MD [address] [facility] [place] [id number] PCP - GeneralFamily Szeuvihn62/7/22 Manuel Ferris MD [address] [facility] [place] [address] ReferringFamily Medicine02/12/22Team MemberRelationshipSpecialtyStart DateEnd Date Manuel Ferris MD [address] [facility] [place] [address] PCP - GeneralFamily Plsphujx10/7/22 Manuel Ferris MD [address] [facility] [place] [address] ReferringFamily Medicine02/12/22Team MemberRelationshipSpecialtyStart DateEnd Date Manuel Ferris MD [address] [facility] [place] [address] PCP - Generalmily Qbnipbwh93/7/22 Manuel Ferris MD [address] [facility] [place] [address] ReferringFamily Medicine02/12/22Team MemberRelationshipSpecialtyStart DateEnd Date Manuel Ferris MD [address] [facility] [place] [address] PCP - GeneralFamily Qbdgghla10/7/22 Manuel Ferris MD [address] [facility] [place] [address] ReferringFamily Medicine02/12/22Team MemberRelationshipSpecialtyStart DateEnd Date Manuel Ferris MD [address] [facility] [place] [address] PCP - Generalmily Maytafhr19/7/22 Manuel Ferris MD [address] [facility] [place] [address] ReferringFamily Medicine02/12/22Team MemberRelationshipSpecialtyStart DateEnd Date Manuel Ferris MD [address] [facility] [place] [address] PCP - GeneralFamily Vfvedbtt90/7/22 Manuel Ferris MD [address] [facility] [place] [address] ReferringFamily Medicine02/12/22Team MemberRelationshipSpecialtyStart DateEnd Date Manuel Ferris MD [address] [facility] [place] [address] PCP - GeneralFamily Owoylxqj22/7/22 Manuel Ferris MD [address] [facility] [place] [id number] ReferringFamily Medicine02/12/22Team MemberRelationshipSpecialtyStart DateEnd Date Manuel Ferris MD [address] [facility] [place] [address] PCP - GeneralFamily Brihtkcr69/7/22 Manuel Ferris MD [address] [facility] [place] [address] ReferringFamily Medicine02/12/22Team MemberRelationshipSpecialtyStart DateEnd Date Manuel Ferris MD [address] [facility] [place] [address] PCP - GeneralFamily Lzxanrmw13/7/22 Manuel Ferris MD [address] [facility] [place] [address] ReferringFamily Medicine02/12/22Team MemberRelationshipSpecialtyStart DateEnd Date Manuel Ferris MD [address] [facility] [place] [address] PCP - GeneralFamily Bkbbpuho19/7/22 Manuel Ferris MD [address] [facility] [place] [address] ReferringFamily Medicine02/12/22Team MemberRelationshipSpecialtyStart DateEnd Date Manuel Ferris MD [address] [facility] [place] [address] PCP - GeneralFamily Qjnctjhy45/7/22 Manuel Ferris MD [address] [facility] [place] [address] ReferringFamily Medicine02/12/22Team MemberRelationshipSpecialtyStart DateEnd Date Manuel Ferris MD [address] [place] [address] PCP - GeneralFamily Uvbvxlcu60/7/22 Manuel Ferris MD [address] [facility] [place] [id number] ReferringFamily Medicine02/12/22Team MemberRelationshipSpecialtyStart DateEnd Date Manuel Ferris MD [address] [facility] [place] [address] PCP - GeneralFamily Fxcyshyc85/7/22 Manuel Ferris MD [address] [facility] [place] [address] ReferringFamily Medicine02/12/22Team MemberRelationshipSpecialtyStart DateEnd Date Manuel Ferris MD [address] [facility] [place] [address] PCP - GeneralFamily Qbzgmfje98/7/22 Manuel Ferris MD [address] [facility] [place] [address] ReferringFamily Medicine02/12/22Team MemberRelationshipSpecialtyStart DateEnd Date Manuel Ferris MD [address] [facility] [place] [address] PCP - GeneralFamily Gmxrceha40/7/22 Manuel Ferris MD [address] [facility] [place] [address] ReferringFamily Medicine02/12/22Team MemberRelationshipSpecialtyStart DateEnd Date Manuel Ferris, [address] [place] [address] PCP - GeneralFamily Ldxxbhqw91/7/22 Manuel Ferris MD [address] [place] [address] ReferringFamily Medicine02/12/22Team MemberRelationshipSpecialtyStart DateEnd Date Manuel Ferris MD PCP - GeneralFamily Dfitghhg77/7/22 Manuel Ferris MD ReferringFamily Medicine02/12/22Team MemberRelationshipSpecialtyStart DateEnd Date Manuel Ferris MD PCP - GeneralFamily Kofqobvi21/7/22 Manuel Ferris MD ReferringFamily Medicine02/12/22Team MemberRelationshipSpecialtyStart DateEnd Date Manuel Ferris MD PCP - GeneralFamily Tiptxmff29/7/22 Manuel Ferris MD ReferringFamily Medicine02/12/22Team MemberRelationshipSpecialtyStart DateEnd Date Manuel Ferris MD PCP - GeneralFamily Npsltmut46/7/22 Manuel Ferris MD ReferringFamily Medicine02/12/22Team MemberRelationshipSpecialtyStart DateEnd Date Manuel Ferris MD PCP - GeneralFamily Fbfrfufr88/7/22 Manuel Ferris MD ReferringFamily Medicine02/12/22Team MemberRelationshipSpecialtyStart DateEnd Date Manuel Ferris MD PCP - GeneralFamily Lwqfoyfb88/7/22 Manuel Ferris MD ReferringFamily Medicine02/12/22Team MemberRelationshipSpecialtyStart DateEnd Date Manuel Ferris MD PCP - GeneralFamily Suabvfdh59/7/22 Manuel Ferris MD ReferringFamily Medicine02/12/22Team MemberRelationshipSpecialtyStart DateEnd Date Manuel Ferris MD PCP - GeneralFamily Cdxzcooc38/7/22 Manuel Ferris MD ReferringFamily Medicine02/12/22Team MemberRelationshipSpecialtyStart DateEnd Date Manuel Ferris MD PCP - GeneralFamily Ppjrimcx52/7/22 Manuel Ferris MD ReferringFamily Medicine02/12/22Team MemberRelationshipSpecialtyStart DateEnd Date Manuel Ferris MD PCP - GeneralFamily Iwhddzvm58/7/22 Manuel Ferris MD ReferringFamily Medicine02/12/22Team MemberRelationshipSpecialtyStart DateEnd Date Manuel Ferris MD PCP - GeneralFamily Mlwzqxvi75/7/22 Manuel Ferris MD ReferringFamily Medicine02/12/22Team MemberRelationshipSpecialtyStart DateEnd Date Manuel Ferris MD PCP - GeneralFamily Cqpwxfuk21/7/22 Manuel Ferris MD ReferringFamily Medicine02/12/22Team MemberRelationshipSpecialtyStart DateEnd Date Manuel Ferris MD PCP - Generalmily Zdcdfthr56/7/22 Manuel Ferris MD ReferringFamily Medicine02/12/22Team MemberRelationshipSpecialtyStart DateEnd Date Manuel Ferris MD PCP - GeneralFamily Rmeisjor18/7/22 Manuel Ferris MD ReferringFamily Medicine02/12/22Team MemberRelationshipSpecialtyStart DateEnd Date Manuel Ferris MD PCP - GeneralFamily Uftrdkyq86/7/22 Manuel Ferris MD ReferringFamily Medicine02/12/22Team MemberRelationshipSpecialtyStart DateEnd Date Manuel Ferris MD PCP - GeneralFamily Suaofzxm19/7/22 Manuel Ferris MD ReferringFamily Medicine02/12/22Team MemberRelationshipSpecialtyStart DateEnd Date Manuel Ferris MD PCP - GeneralFamily Dowalfoh93/7/22 Manuel Ferris MD ReferringFamily Medicine02/12/22Team MemberRelationshipSpecialtyStart DateEnd Date Manuel Ferris MD PCP - GeneralFamily Njdllpkx78/7/22 Manuel Ferris MD ReferringFamily Medicine02/12/22Team MemberRelationshipSpecialtyStart DateEnd Date Manuel Ferris MD PCP - GeneralFamily Owkvnndq67/7/22 Manuel Ferris MD ReferringFamily Medicine02/12/22Team MemberRelationshipSpecialtyStart DateEnd Date Manuel Ferris MD PCP - GeneralFamily Tuaviefd87/7/22 Manuel Ferris MD ReferringFamily Medicine02/12/22Team MemberRelationshipSpecialtyStart DateEnd Date Manuel Ferris MD PCP - [facility] Gmoidxjb30/7/22 Manuel Ferris MD Referringmily Medicine02/12/22Team MemberRelationshipSpecialtyStart DateEnd Date Manuel Ferris MD PCP - [facility] Ocyqlcqu18/7/22 Manuel Ferris MD [facility]erring[facility] Medicine02/12/22Team MemberRelationshipSpecialtyStart DateEnd Date Manuel Ferris MD PCP - [facility] Ubkrrpez98/7/22 Manuel Ferris MD ReferringBoston [facility] Medicine02/12/22Team MemberRelationshipSpecialtyStart DateEnd Date Manuel Ferris MD PCP - [facility] Scgxauts60/7/22 Manuel Ferris MD Referringmily Medicine02/12/22Team MemberRelationshipSpecialtyStart DateEnd Date Manuel Ferris MD PCP - [facility] Cfkocpkl96/7/22 Manuel Ferris MD ReferringFamily Medicine02/12/22Team MemberRelationshipSpecialtyStart DateEnd Date Manuel Ferris MD PCP - GeneralFamily Bogigwpl43/7/22 Manuel Ferris MD ReferringFamily Medicine02/12/22Team MemberRelationshipSpecialtyStart DateEnd Date Charles Nicole DO [address] [place] [address] PCP - General10/22/18 Michelle Jasmine, MICROBIOLOGY TECHNICIAN-DIGITAL MEDIA ANALYST [address] [facility] [address] [place] [address] Nurse PractitionerCardiology06/08/23Te MemberRelationshipSpecialtyStart DateEnd Date Gay De La Torre, MICROBIOLOGY TECHNICIAN-DIGITAL MEDIA ANALYST [address] [place] [address] PCP - General07/13/23 Michelle Jasmine, MICROBIOLOGY TECHNICIAN-DIGITAL MEDIA ANALYST [address] [facility] [address] [place] [address] Nurse PractitionerCardiology06/08/23 Aurora Patel MD [address] [facility] [address] [place] [address] Consulting PhysicianCardiology06/23/23Team MemberRelationshipSpecialtyStart Date End Date Manuel Ferris MD PCP - GeneralFamily Afyhvglk53/7/22 Manuel Ferris MD ReferringFamily Medicine02/12/22Team MemberRelationshipSpecialtyStart DateEnd Date Manuel Ferris MD PCP - Generalmily Qtxklrfb33/7/22 Manuel Ferris MD ReferringAdair [facility] Systemly Medicine02/12/22 Team Status: Active Member Role Status Mark Salomon MD Primary Care Provider Active Start: July 28, 2023 Zarina Thomas ProviderActiveStart: July 28, 2023 Team MemberRelationshipSpecialtyStart DateEnd Date Manuel Ferris MD PCP - [facility] Hfuuhgzk56/7/22 Manuel Ferris MD Referring[facility] Medicine02/12/22 Team Status: Inactive Member Role Status Mark Salomon MD Primary Care Provider Active Start: December 16, 2023 End: December 16, 2023MicZarina Barraza ProviderActiveStart: December 16, 2023 End: December 16, 2023Team MemberRelationshipSpecialtyStart DateEnd Date Manuel Ferris MD PCP - [facility] Fzvdbdxi70/7/22 Manuel Ferris MD Referring[facility] Medicine02/12/22Team MemberRelationshipSpecialtyStart DateEnd Date Manuel Ferris MD PCP - [facility]02/27/22 Manuel Ferris MD [facility]erring[facility]02/12/22Team MemberRelationshipSpecialtyStart End Manuel Ferris MD PCP - [facility]02/27/22 Manuel Ferris MD [facility]02/12/22Team MemberRelationshipSpecialtyStart DateEnd Manuel Ferris MD PCP - [facility]02/27/22 Manuel Ferris MD [facility]02/12/22 Team Status: Inactive Member Role Status Dates Lui Salomon MD Primary Care Provider Active Start: January 28, 2024 End: January 28, 2024Adolfo Kang MDAttending ProviderActiveStart: January 28, 2024 End: [address]referring ProviderActiveStart: January 28, 2024 End: January 28, 2024 Team Status: Inactive Member Role Status Dates Adolfo Knag MD Attending Provider Active Sta rt: February 16, 2024 End: February 15kendrick De La Torre HATCHERY SUPERVISOR-CPrimary Care ProviderActive Start: February 16, 2024 End: February 16, 2024 Team Status: Active Member Role Status Dates Adolfo Kang MD Attending Provider, Other Provider Active Start: February 16, 2024 Gay De La Torre HATCHERY SUPERVISOR-CPrimary Care ProviderActiveStart: February 16, 2024 Team Status: Inactive Member Role Status Dates Adolfo Kang MD Attending Provider Active Sta rt: February 28, 2024 End: February 27kendrick De La Torre HATCHERY SUPERVISOR-CPrimary Care ProviderActiveStart: February 28, 2024 End: February 28, 2024Team MemberRelationshipSpecialtyStart DateEnd Charles Russell MD [address] [place] [address] PCP - GeneralFamily Medicine02/09/24 Team Status: Inactive Member Role Status Dates Gay De La Torre , HATCHERY SUPERVISOR-C Primary Care Provider Active Start: March 16, 2024 End: March 16Luiz Park ProviderActiveStart: March 16, 2024 End: March 16, 2024Team MemberRelationshipSpecialtyStart Charles Quiros MD [address] [place] [address] PCP - Generalmily Medicine02/09/24Team MemberRelationshipSpecialtyStart DateEnd Charles Russell MD [address] [place] [address] PCP - Generalmily Medicine02/09/24Team MemberRelationshipSpecialtyStart DateEnd Charles Russell MD [address] [place] [address] PCP - GeneralFamily Medicine02/09/24Team MemberRelationshipSpecialtyStart DateEnd Charles Russell MD [address] [place] [address] PCP - Generalmily Medicine02/09/24Team MemberRelationshipSpecialtyStart Charles Quiros MD [address] [place] [address] PCP - GeneralFamily Medicine02/09/24Team MemberRelationshipSpecialtyStart DateEnd Date Manuel Ferris MD PCP - GeneralFamily Yiffugix67/7/22 Manuel Ferris MD ReferringFamily Medicine02/12/22Team MemberRelationshipSpecialtyStart DateEnd Date Charles Nicole MD [address] [place] [address] PCP - Generalmily Medicine02/09/24Team MemberRelationshipSpecialtyStart DateEnd Date Charles Nicole MD [address] [place] [address] PCP - Generalmily Medicine02/09/24Team MemberRelationshipSpecialtyStart DateEnd Date Charles Nicole MD [address] [place] [address] PCP - Generalmily Medicine02/09/24Team MemberRelationshipSpecialtyStart DateEnd Date Charles Nicole MD [address] [place] [address] PCP - Generalmily Medicine02/09/24Team MemberRelationshipSpecialtyStart DateEnd Date Manuel Ferris MD PCP - GeneralFamily Ylkritvd83/7/22 Manuel Ferris MD ReferringFamily Medicine02/12/22Team MemberRelationshipSpecialtyStart DateEnd Date Charles Nicole MD [address] [place] [address] PCP - GeneralFamily Medicine02/09/24Team MemberRelationshipSpecialtyStart DateEnd Date Manuel Ferris MD PCP - GeneralFamily Wfyzqeip84/7/22 Manuel Ferris MD ReferringFamily Medicine02/12/22Team MemberRelationshipSpecialtyStart DateEnd Date Manuel Ferris MD PCP - GeneralFamily Govzunst73/7/22 Manuel Ferris MD ReferringFamily Medicine02/12/22Team MemberRelationshipSpecialtyStart DateEnd Date Charles Nicole MD [address] [place] [address] PCP - GeneralFamily Medicine02/09/24Team MemberRelationshipSpecialtyStart DateEnd Date Manuel Ferris MD PCP - GeneralFamily Xpzikvbl40/7/22 Manuel Ferris MD ReferringFamily Medicine02/12/22 Manuel Ferris MD [address] [place] [address] ReferringFamily Medicine07/06/24 Team Status: Inactive Member Role Status Dates Gay De La Torre NP-C Primary Care Provider Active Start: July 10, 2024 End: July 10, 2024Zarina Pickering ProviderActiveStart: July 10, 2024 End: July 10, 2024Team MemberRelationshipSpecialtyStart DateEnd Date Manuel Ferris MD PCP - GeneralFamily Sfiajnnq04/7/22 Manuel Ferris MD ReferringFami Medicine02/12/22 Manuel Ferris MD [address] [place] [id number] ReferringTaylor [facility]07/06/24Team MemberRelationshipSpecialtyStart DateEnd Date Manuel Ferris MD PCP - Generalmily Vxobspvy96/7/22 Manuel Ferris MD ReferringFami Medicine02/12/22 Manuel Ferris MD [address] [place] [id number] Referring[facility]07/06/24 Team Status: Inactive Member Role Status Dates Gay De La Torre NP-C Primary Care Provider Active Start: July 19, 2024 End: July 19, 2024Zarina Pickering ProviderActiveStart: July 19, 2024 End: July 19, 2024Team MemberRelationshipSpecialtyStart DateEnd Date Gay De La Torre MD [address] [place] [phone] Referring Physicianmily Medicine07/18/24Team MemberRelationshipSpecialtyStart DateEnd Date Manuel Ferris MD P[facility] - [facility]Ad[facility] Systemly Hibfenkk39/7/22 Manuel Ferris MD ReferringFamily Medicine02/12/22 Manuel Ferris MD [address] [place] [address] ReferringBoston [facility] Hospital Medicine07/06/24Team MemberRelationshipSpecialtyStart DateEnd Date Gay De La Torre MD [address] [place] [address] Referring PhysicianBoston University Medical Center Hospital Medicine07/18/24Team MemberRelationshipSpecialtyStart DateEnd Date Gay De La Torre, MICROBIOLOGY TECHNICIAN-DIGITAL MEDIA ANALYST [address] [place] [address] PCP - General07/13/23 Michelle Jasmine, MICROBIOLOGY TECHNICIAN-DIGITAL MEDIA ANALYST Nurse PractitionerCardiology06/08/23 Aurora Patel MD Consulting PhysicianCardiology06/23/23 Team Status: Active Member Role Status Dates Gay De La Torre NP-C Primary Care Provider Active Start: July 19, 2024 Zarina Pickering Provider, Other ProviderActiveStart: July 19, 2024 Team Status: Inactive Member Role Status Dates Gay De La Torre NP-C Primary Care Provider Active Start: July 31, 2024 End: July 31, 2024Zarina Pickering ProviderActiveStart: July 31, 2024 End: July 31, 2024Team MemberRelationshipSpecialtyStart DateEnd Date Manuel Ferris MD PCP - GeneralAd[facility] Systemly Tvwwjlop31/7/22 Manuel Ferris MD ReferringAdair County Health Systemly Medicine02/12/22 Manuel Ferris MD [address] [place] [address] ReferringTaylor [facility]07/06/24Team MemberRelationshipSpecialtyStart End Manuel Ferris MD PCP - GeneralAd[facility] Systemly Ottjcvec60/7/22 Manuel Ferris MD ReferringBoston [facility] Hospital Medicine02/12/22 Manuel Ferris MD [address] [place] [address] ReferringTaylor [facility]07/06/24Team MemberRelationshipSpecialtyStart End Date Manuel Ferris MD P[facility] - [facility] Iowdtidl96/7/22 Manuel Ferris MD ReferringBoston [facility] Medicine02/12/22 Manuel Ferris MD [address] [place] [address] ReferringTaylor [facility]07/06/24 Team Status: Inactive Member Role Status Dates Gay De La Torre , HATCHERY SUPERVISOR-C Primary Care Provider Active Start: August 22, 2024 End: August 22, 2024Shana Kang MDAttending ProviderActiveStart: August 22, 2024 End: August 22, 2024Team MemberRelationshipSpecialtyStart DateEnd Date Gay De La Torre MD [facility] [place] [address] Referring Physicianmi Medicine07/18/24Team MemberRelationshipSpecialtyStart DateEnd Date Manuel Ferris MD PCP - Generalmily Bctfgrlj53/7/22 Manuel Ferris MD ReferringFamily Medicine02/12/22 Manuel Ferris MD [address] [place] [address] ReferringFami Medicine07/06/24Team MemberRelationshipSpecialtyStart DateEnd Date Manuel Ferris MD PCP - GeneralAd[facility] Systemly Ccyebzis38/7/22 Manuel Ferris MD ReferringFamily Medicine02/12/22 [place] [address] [place] [address] ReferringBoston [facility] Hospital Medicine07/06/24Team MemberRelationshipSpecialtyStart DateEnd Date Gay De La Torre MD [address] [place] [address] Referring PhysicianBoston University Medical Center Hospital Medicine07/18/24Team MemberRelationshipSpecialtyStart DateEnd Date Gay De La Torre MD [address] [place], [place] [phone] Referring PhysicianFamily Medicine07/18/24Team MemberRelationshipSpecialtyStart DateEnd Date Manuel Ferris MD PCP - GeneralFamily Wwqykgak14/7/22 Manuel Ferris MD ReferringFamily Medicine02/12/22 Manuel Ferris MD [address] [place] [address] Referringmily Medicine07/06/24Team MemberRelationshipSpecialtyStart DateEnd Manuel Ferris MD PCP - Generalmily Sudfrgfc20/7/22 Manuel Ferris MD ReferringFamily Medicine02/12/22 Manuel Ferris MD [address] [place], [place] [address] ReferringFamily Medicine07/06/24Team MemberRelationshipSpecialtyStart DateEnd Date Manuel Ferris MD PCP - GeneralFamily Uasefclh68/7/22 Manuel Ferris MD ReferringFamily Medicine02/12/22 Manuel Ferris MD [address] [facility] [place] [address] ReferringFamily Medicine07/06/24Te MemberRelationshipSpecialtyStart DateEnd Manuel Ferris MD PCP - GeneralFamily Lgqmiblf65/7/22 Manuel Ferris MD ReferringFamily Medicine02/12/22 Manuel Ferris MD [address] [place] [address] Referringmi Medicine07/06/24Te MemberRelationshipSpecialtyStart End Manuel Ferris MD PCP - GeneralFamily Umokvbpa83/7/22 Manuel Ferris MD ReferringFamily Medicine02/12/22 Manuel Ferris MD [address] [facility] [place] [address] ReferringFami Medicine07/06/24Team MemberRelationshipSpecialtyStart DateEnd Date Manuel Ferris MD PCP - Generalmily Tajntxsc48/7/22 Manuel Ferris MD ReferringFamily Medicine02/12/22 Manuel Ferris MD [address] [facility] [place] [address] ReferringFamily Medicine07/06/24Team MemberRelationshipSpecialtyStart End Manuel Ferris MD PCP - GeneralFamily Abhxuztw62/7/22 Manuel Ferris MD ReferringFamily Medicine02/12/22 Manuel Ferris MD [address] [place] [address] ReferringFamily Medicine07/06/24Team MemberRelationshipSpecialtyStart DateEnd Manuel Ferris MD PCP - GeneralFamily Sknjqxro23/7/22 Manuel Ferris MD ReferringFamily Medicine02/12/22 Manuel Ferris MD [address] [place] [address] ReferringFamily Medicine07/06/24Team MemberRelationshipSpecialtyStart End Manuel Ferris MD PCP - GeneralFamily Wxxplyig17/7/22 Manuel Ferris MD ReferringFamily Medicine02/12/22 Manuel Ferris MD [address] [place] [address] ReferringFamily Medicine07/06/24Team MemberRelationshipSpecialtyStart DateEnd Date Manuel Ferris MD PCP - GeneralFamily Czmlrgjb16/7/22 Manuel Ferris MD ReferringFamily Medicine02/12/22 Manuel Ferris MD [address] [place] [address] ReferringFamily Medicine07/06/24Team MemberRelationshipSpecialtyStart DateEnd Date Manuel Ferris MD PCP - GeneralFamily Lbmpvzkt04/7/22 Manuel Ferris MD ReferringFamily Medicine02/12/22 Manuel Ferris MD [address] [place] [address] ReferringTaylor [facility]07/06/24Team MemberRelationshipSpecialtyStart DateEnd Date Manuel Ferris MD PCP - Generalmily Xzuujgwt45/7/22 Manuel Ferris MD ReferringFamily Medicine02/12/22 Manuel Ferris MD [address] [place] [address] ReferringFamily Medicine07/06/24Team MemberRelationshipSpecialtyStart DateEnd Date Manuel Ferris MD PCP - GeneralFamily Nayfkbbv54/7/22 Manuel Ferris MD ReferringFamily Medicine02/12/22 Manuel Ferris MD [address] [place] [address] ReferringBoston [facility] Hospital Medicine07/06/24 Team Status: Inactive Member Role Status [...] DateEnd Date Gay De La Torre MD [address] [place], [place] [phone] Referring [facility]07/18/24Team MemberRelationshipSpecialtyStart DateEnd Date Manuel Ferris MD PCP - GeneralFamily Untlfyfg29/7/22 Manuel Ferris MD ReferringFamily Medicine02/12/22 Manuel Ferris MD [address] [place] [address] ReferringBoston [facility] Medicine07/06/24Team MemberRelationshipSpecialtyStart DateEnd Date Manuel Ferris MD PCP - [facility]Boston [facility] Burqpyza57/7/22 Manuel Ferris MD ReferringFalahey hospital & medical center Medicine02/12/22 Manuel Ferris MD [address] [place] [address] ReferringTaylor [facility]07/06/24Team MemberRelationshipSpecialtyStart End Manuel Ferris MD PCP - [facility]Taylor [facility]02/27/22 Manuel Ferris MD ReferringTaylor [facility]02/12/22 Manuel Ferris MD [address] [place] [address] Referring[facility]07/06/24 Team Status: Inactive Member Role Status Dates Gay De La Torre HATCHERY SUPERVISOR-C Primary Care Provider Active Start: January 31, 2025 End: January 31, 2025Shana Kang MDAttchristopher ProviderActiveStart: January 31, 2025 End: January 31, 2025Team MemberRelationshipSpecialtyStart DateEnd Gay De La Torre MD [address] [place] [address] Referring PhysicianTaylor Regional Hospital07/18/24Team MemberRelationshipSpecialtyStart DateEnd Gay De La Torre MD [address] [place] [address] Referring [facility]icianTaylor [facility]07/18/24Team MemberRelationshipSpecialtyStart DateEnd Date Gay De La Torre MD [address] [place] [address] Referring [facility]07/18/24 Team Status: Inactive Member Role Status Dates Terence Blum MD Attending Provider Active Sta rt: March 02, 2025 End: March 02, 2025Gay De La Torre NP-CPrimary Care ProviderActiveStart: March 02, 2025 End: March 02, 2025Team MemberRelationshipSpecialtyStart DateEnd Date Gay De La Torre MD [address] [place] [address] Referring [facility]07/18/24 Team Status: Inactive Member Role Status Dates Jose Perez DO Attending Provider Active S tart: March 03, 2025 End: March 03, 2025 Team Status: Inactive Member Role/Relationship Status Dates Gay De La Torre HATCHERY SUPERVISOR-C Primary Care Provider Active Start: December 12, 2024 End: December 12, 2024Luiz Gee ProviderActiveStart: December 12, 2024 End: December 12, 2024 Team Status: Inactive Member Role/Relationship Status Dates Gay De La Torre HATCHERY SUPERVISOR-C Primary Care Provider Active Start: January 17, 2025 End: January 17, 2025Pefrank Arnett NPAttending ProviderActiveStart: January 17, 2025 End: January 17, 2025 Team Status: Active Member Role/Relationship Status Dates Gay De La Torre HATCHERY SUPERVISOR-C Primary Care Provider Active Start: January 31, 2025 Zarina Pickering ProviderActiveStart: January 31, 2025 Amy Pickering ProviderActiveStart: January 31, 2025 Team Status: Inactive Member Role/Relationship Status Dates Gay De La Torre HATCHERY SUPERVISOR-C Primary Care Provider Active Start: February 14, 2025 End: February 14, 2025Jm Casarez ProviderActiveStart: February 14, 2025 End: February 14, 2025 Team Status: Inactive Member Role/Relationship Status Dates Mathew Ji MD Attending Provider Active St art: February 26, 2025 End: February 26, 2025 Team Status: Inactive Member Role/Relationship Status Dates Bandar Portillo APRN Attending Provider Active Start: February 28, 2025 End: February 28, 2025Pafrancesco De La Torre , HATCHERY SUPERVISOR-CPrimary Care ProviderActiveStart: February 28, 2025 End: February 28, 2025 Team Status: Inactive Member Role/Relationship Status Dates Terence Blum MD Attending Provider Active Sta rt: March 02, 2025 End: March 02, 2025Pamelal De La Torre , HATCHERY SUPERVISOR-CPrimary Care ProviderActiveStart: March 02, 2025 End: March 02, 2025 Team Status: Inactive Member Role/Relationship Status Dates Jose Perez DO Attending Provider Active S tart: March 03, 2025 End: March 03, 2025 Team Status: Inactive Member Role/Relationship Status Dates Gay De La Torre , HATCHERY SUPERVISOR-C Attending Provider Active Start: March 09, 2025 End: March 09, 2025 Team Status: Active Member Role/Relationship Status Dates NON STAFF Primary Care Provider Active Team Status: Inactive Member Role/Relationship Status Dates Adolfo Kang MD Attending Provider Active Sta rt: March 13, 2025 End: March 13, 2025NON STAFFPrimary Care ProviderActiveStart: March 13, 2025 End: March 13, 2025Team MemberRelationshipSpecialtyStart DateEnd Date Gay De La Torre CNP [address] [place] [phone] PCP - GeneralNurse Practitioner - Mcemre00/4/24Team MemberRelationshipSpecialty Start DateEnd Date Gay De La Torre MD [address] [place] [address] Referring PhysicianFamily [facility]07/18/24Team MemberRelationshipSpecialtyStart DateEnd Date Charles Nicole MD PCP - GeneralFamily Medicine Gay De La Torre MD [address] [place], [place] [id number] Referring [facility]07/18/24Team MemberRelationshipSpecialtyStart [facility] Charles Nicole MD PCP - GeneralFamily Medicine Gay De La Torre MD [address] [place] [address] Referring [facility]Taylor [facility]07/18/24Team MemberRelationshipSpecialtyStart [facility] Charles Nicole MD PCP - Generalmily Medicine Gay De La Torre MD [address] [place], [place] [id number] Referring [facility]icianTaylor [facility]07/18/24Team MemberRelationshipSpecialtyStart [facility] Gay De La Torre MD [address] [place], [place] [phone] Referring [facility]icianTaylor [facility] Hospital07/18/24 Inactive Administered Medications - up to 3 most recent administrations Administered Medications (un recognized section and content) Medication OrderMAR ActionAction DateDoseRateSite cyanocobalamin 1,000 mcg injection 1,000 mcg, INTRAMUSCULAR, ONCE, 1 dose, On Wed07/13/23 at 1200 Given07/13/2023 12:00 PM EST1,000 mcgDeltoid, RightMedication OrderMAR Action Action DateDoseRateSite cyanocobalamin 1,000 mcg injection 1,000 mcg, INTRAMUSCULAR, ONCE, 1 dose, On Delmi 08/05/23 at 1130 Given08/05/2023 11:30 AM EDT1,000 mcgDeltoid, RightMedication OrderMAR Action Action DateDoseRateSite cyanocobalamin 1,000 mcg injection 1,000 mcg, INTRAMUSCULAR, ONCE, 1 dose, On Tu08/31/23 at 1030 Given08/31/2023 10:30 AM EDT1,000 mcgDeltoid, [...] BE BASED ON THE PRIMARY CLINICAL RECORDS. [employer] [facility]. provides no warranty or guarantee of the accuracy or completeness of information in this document.
== END 2025-04-05 18:42 | disposition home or self-care (01) ==
LOC: LAB 18:41
PROVIDERS: PCP Nurse Practitioner Family; Visit Provider Physician Assistant
DX: N64.52 Nipple discharge (principal)
CPT/HCPCS: 87070; 87075

== ENCOUNTER 2025-05-05 23:51 | Emergency (ER) | payer OTHER, SELFPAY ==
--- OUTSIDE RECORDS SUMMARY | 2025-04-26 03:31 | XMS_ITS ---
Author Organization [facility] in [place] Address [address] [place] [address] Care Team Providers Care Supervisor Microfilm Duplicating Unit Name Role Phone Gay De La Torre Primary Care Provider [phone] REASON FOR VISIT sob Medications Medication SIG (Take, Route, Frequency, Duration) Notes Start Date End Date Status Fluticasone Propionate (Inhal) 100 MCG/A CT 1 puff Inhalation Twice a day; Duration: 30 days 04/27/2025tive Encounters Encounter Location Date Provider Diagnosis [address] [address] 04/26/2025 Gay De La Torre Plan Of Treatment Medication Medication Name Sig Start Date Stop Date Notes Fluticasone Propionate (Inha l) 100 MCG/ACT 1 puff Inhalation Twice a day; Duration: 30 days 04/27/2025 Progress Notes * Ariadna HALEY BDOB:1980 (44 yo F)Acc No.[id number]:04/26/2025 Patient:?Ariadna HALEY :1980???Age:44 Y???Sex:FemalePhone:[phone] Address:[address] [place] [address], [address] * Refills Start Fluticasone Propionate (Inhal) Aerosol Powder Breath Activated, 100 MCG/ACT, Inhalation, 1, 1puff, Twice a day, 30 days, Refills=5 Subjective: * Chief Complaints: * S ob * Medical History: * Surgical History: * Hospitalization/Major Diagno stic Procedure: * Medications: Objective: * Vitals: * Physical Examination: ??? Assessment: Plan: * Treatment: Start Fluticasone Propionate (Inhal) Aerosol Powder Breath Activated, 100 MCG/ACT, 1 puff, Inhalation, Twice a day, 30 days, 1, Refills 5.?? * Procedure Codes: * true * Date:?Generated for Printing/Faxing/eTransmitting on:?05/06/2025 12:36 AM EST
--- OUTSIDE RECORDS SUMMARY | 2025-05-01 09:30 | XMS_ITS | Encounter Summary ---
Author Organization [facility] Address [address] [place] [address] Care Team Providers Care Lead Accountant Name Role Phone Manuel Klein MD Unavailable Manuel Klein MD Primary Care Provider +-4 Manuel Klein MD Unavailable [phone] Source Comments In the event this information is protected by the Federal Confidentiality of Alcohol and Drug AbusePatient Records regulations: The Federal rules restrict any use of the information to criminally investigate or prosecute any alcohol or drug abuse patient.[facility] Reason for Visit * [place] Prior Authorization (Routine) - AuthorizedSpecialtyDiagnoses / ProceduresReferred By ContactReferred To Contact Diagnoses Frequent infections Hypogammaglobulinemia (HCC) Bilateral leg weakness Discoid lupus erythematosus Procedures GAMMAGARD LIQUID INJECTION IMMUNE GLOBULIN INJECTION Jose Cho MD [address] [place] [address] [place] [address] Phone: tel: fax: Hematology/Oncology [address] [place] [address] [place] [address] Phone: tel: fax: Referral IDStatusReasonStart DateExpiration DateVisits RequestedVisits [id number] Patient Cleared - Admin/Pumper Helper/Director advise to proceed or did not respond [id number] Encounter Details DateTypeDepartmentCare Team (Latest Contact Info)Jmqfrmjnvvv98/09/2025 9:30 AM [facility] Hematology/Oncology [address] [place] [address] [place] [address] Frequent infections (Primary Dx); Hypogammaglobulinemia (HCC); Bilateral leg weakness; Discoid lupus erythematosus; Elevated sed rate; Megaloblastic anemia due to vitamin B12 deficiency Social History Tobacco UseTypesPacks/DayYears UsedDateSmoking Tobacco: Every LqkQlzkdxasqy245 Smokeless Tobacco: NeverAlcohol UseStandard Drinks/WeekCommentsNo0 (1 standard drink = 0.6 oz pure alcohol)PHQ-2AnswerDate RecordedPHQ-2 omefn634rea Deprivation IndexAnswerDate RecordedNational Score (1-100), lower number is lower bnml537509/24/2022State Score (1-10), lower number is lower pdeh104 Data from: https://www.neighborhoodatlas.medicine.[facility].edu/. Last address used for eyddnmhnd[address]3CommentsNoSex and Gender InformationValueDate RecordedSex Assigned at BirthNot on fileLegal SexFemale 05/31/2014 2:51 PM ESTGender IdentityNot on fileSexual OrientationNot on file documented as of this encounter Last Filed Vital Signs Vital SignReadingTime TakenCommentsBlood Sfvuhtqo208/6005/01/2025 3:08 PM EST Wjjcf745805/01/2025 3:08 PM ZYEAppfyftdhmt27.6 ??C (97.9 ??F)05/01/2025 10:24 AM ESTRespiratory Vvrz325007/02/2024 3:08 PM ESTOxygen Ohowokptvy26%05/01/2025 3:08 PM ESTInhaled Oxygen Concentration--Weight--Height--Body Mass Index--documented in this encounter Functional Status * Are you deaf or do you have serious difficulty hearing?AnswerDate of QvpspywobsHcmjcjKy39/04/2015 11:14 AM Chichi Stevens Ma * Are you blind or do you have serious difficulty seeing, even when wearing glasses?AnswerDate of QdtewolrelGgcqthHs78/04/2015 11:14 AM Chichi Stevens Ma * Do you have serious difficulty walking or climbing stairs?AnswerDate of BvmyggyxrsEvvoolZeo28/04/2015 11:14 AM Chichi Stevens Ma * Do you have difficulty dressing or bathing?AnswerDate of AssessmentAuthorYes 12/25/2014 11:14 AM Chichi Stevens Ma * Because of a physical, mental, or emotional condition, do you have difficulty doing errands alone such as visiting a doctor's office or shopping?AnswerDate of GdvrwlkwvaZhghgaJx60/04/2015 11:14 AM Chichi Stevens Ma documented as of this encounter Mental Status * Because of a physical, mental, or emotional condition, do you have serious difficulty concentrating, remembering, or making decisions?AnswerEntry Date HmhdcaQi71/04/2015 11:14 AM Chichi Stevens Ma documented in this encounter Plan of Treatment DateTypeDepartmentCare Team (Latest Contact Info)Yrqxqnufstf61/20/2025 9:00 AM [facility] Rheumatology [address] [place] [address] Sandra Park MD [address] [place] [address] follow up per acvldwff55/31/2025 9:00 [facility] [address] [place] [address] IVIG Q 3 WEEKS06/13/2025 8:45 AM ESTOffice Visit [facility] [address] [address] 12 week follow up IVIG06/13/2025 9:00 AM ESTVisit (SP) Office Hematology/Oncology [address] [place] [address] Fara Lopez APRN.CERTIFIED SOLID WASTE FACILITY OPERATOR [address] [place] [address] 12 week follow up IVIG06/13/2025 9:30 AM [facility] Hematology/Oncology [address] [place] [address] 12 week follow up IVIGdocumented as of this encounter Visit Diagnoses Diagnosis Frequent infections- Primary Hypogammaglobulinemia (HCC) Hypogammaglobulinaemia, unspecified Bilateral leg weakness Other musculoskeletal symptoms referable to limbs Discoid lupus erythematosus Lupus erythematosus Elevated sed rate Elevated sedimentation rate Megaloblastic anemia due to vitamin B12 deficiency Other vitamin B12 deficiency anemia documented in this encounter Administered Medications Medication OrderMAR ActionAction DateDoseRateSite acetaminophen 650 mg tab(s) (TYLENOL) 650 mg, ORAL, ONCE, 1 dose, On Wed05/01/25 at 1030, No more than 4000 mg of acetaminophen should begiven per day (FROM ALL SOURCES) Indications:Frequent infections,Hypogammaglobulinemia (HCC),Bilateral leg weakness,Discoid lupus gzipjbzvdgtlvWwyrg20/09/2025 10:14 AM VSH477 mg cyanocobalamin 1,000 mcg injection 1,000 mcg, INTRAMUSCULAR, ONCE, 1 dose, On Wed05/01/25 at 1100 Indications:Elevated sed rate,Megaloblastic anemia due to vitamin B12 deficiency Given05/01/2025 10:54 AM EST1,000 mcgArm, Right diphenhydrAMINE 25 mg injection (BENADRYL) 25 mg, INTRAVENOUS, ONCE, 1 dose, On Wed05/01/25 at 1030 Indications:Frequent infections,Hypogammaglobulinemia (HCC),Bilateral leg weakness,Discoid lupus uqxozgeubdnbgRjpni64/09/2025 10:13 AM EST25 mg hydrocortisone sodium succinate (PF) 50 mg injection (Solu-CORTEF) 50 mg, INTRAVENOUS, ONCE, 1 dose, On Wed05/01/25 at 1030 Indications:Frequent infections,Hypogammaglobulinemia (HCC),Bilateral leg weakness,Discoid lupus cfamcsrikocxyZykdr46/09/2025 10:17 AM EST50 mg immune globulin (human) (IgG) 35 g in empty bag Total Volume 350 mL (GAMUNEX-C) 35 g (rounded from 34.72 g = 0.4 g/kg/dose ?? 86.8 kg Treatment plan adjusted weight), INTRAVENOUS,ONCE, 1 dose, On Wed05/01/25 at 1100, EXP: 05/10/2025 Refrigerated Refrigerate - Prepared as a 10% solution - Brand: Lot: Total Volume., Infusion regimen: Standard, Starting rate (mL/kg/hr): 0.5 mL/kg/hr, Rate after 30 min (mL/kg/hr): 1 mL/kg/hr, Titration rate/max: Increase by1 mL/kg/hr every 30 minutes thereafter to a max of 5 mL/kg/hr unless signs or symptoms of reaction Indications:Frequent infections,Hypogammaglobulinemia (HCC),Bilateral leg weakness,Discoid lupus erythematosusRate/Dose Stnxsz8805/01/2025 11:25 AM EST86 mL/hrNew Bag/Syringe/Nfxxdh8405/01/2025 10:48 AM EST35 g40 mL/hrdocumented in this encounter Care Teams Team MemberRelationshipSpecialtyStart DateEnd Date Manuel Klein MD PCP - GeneralFamily Cduzlsbl07/7/22 Manuel Klein MD ReferringFamily Medicine02/12/22 Manuel Klein MD [facility] [place] [address] ReferringFamily Medicine07/06/24documented as of this encounter
--- OUTSIDE RECORDS SUMMARY | 2025-05-02 07:28 | XMS_ITS ---
Author Organization [facility] in [place] Address [address] [place] [address] Care Team Providers Care Senior Safety Support Manager Name Role Phone Gay De La Torre Primary Care Provider [phone] Encounters Encounter Location Date Provider Diagnosis Electronic Health Records [address] [place] [address] 05/02/2025 Gay De La Torre Plan Of Treatment No Information Progress Notes * Ariadna HALEY BDOB:1980 (44 yo F)Acc No.[id number]:05/02/2025 Patient:?Ariadna HALEY :1980???Age:44 Y???Sex:FemalePhone:[phone] Address:[address] [place] [address], [address] Subjective: * Chief Complaints: * * Medical History: * Surgical History: * Hospitalization/Major Diagno stic Procedure: * Medications: Objective: * Vitals: * Physical Examination: ??? Assessment: Plan: * Treatment: * Procedure Codes: * Preventive Medicine: ??Screenings/Counseling:?TOBACCO ACTION PLAN?Patient counselled on the dangers of tobacco use and urged to quit.? 07/27/2024 - -Date counseled * true * Date:?Generated for Printing/Faxing/eTransmitting on:?05/06/2025 12:36 AM EST
--- OUTSIDE RECORDS SUMMARY | 2025-05-03 14:00 | XMS_ITS | Encounter Summary ---
Author Organization [facility] Address [address] [place] [address] Care Team Providers Care Virtualization Engineer Name Role Phone Manuel Klein MD Unavailable [phone] Manuel Klein MD Primary Care Provider +-4 Manuel Klein MD Unavailable [phone] Source Comments In the event this information is protected by the Federal Confidentiality of Alcohol and Drug AbusePatient Records regulations: The Federal rules restrict any use of the information to criminally investigate or prosecute any alcohol or drug abuse patient.[facility] Reason for Visit * [place] Prior Authorization (Routine) - AuthorizedSpecialtyDiagnoses / ProceduresReferred By ContactReferred To Contact Diagnoses Other systemic lupus erythematosus with other organ involvement (HCC) Procedures BELIMUMAB INJECTION Sandra Park MD [address] [place] [address] Phone: tel: fax: Sandra Park MD [address] [place] [address] Phone: tel: fax: Referral IDStatusReasonStart DateExpiration DateVisits RequestedVisits [id number]/121 Encounter Details DateTypeDepartmentCare Team (Latest Contact Info)Bcrrrxxdytf71/11/2025 2:00 PM ESTInfusion Center Hematology/Oncology [address] [place] [address] [place] [address] Other systemic lupus erythematosus with other organ involvement (HCC) (Primary Dx) Social History Tobacco UseTypesPacks/DayYears UsedDateSmoking Tobacco: Every BopGhlezwtatx780 Smokeless Tobacco: NeverAlcohol UseStandard Drinks/WeekCommentsNo0 (1 standard drink = 0.6 oz pure alcohol)PHQ-2AnswerDate RecordedPHQ-2 jsfdw864rea Deprivation IndexAnswerDate RecordedNational Score (1-100), lower number is lower ummz559909/24/2022State Score (1-10), lower number is lower whjb048 Data from: https://www.neighborhoodatlas.[facility].edu/. Last address used for xqvomkeoyhx[address]3CommentsNoSex and Gender InformationValueDate RecordedSex Assigned at BirthNot on fileLegal SexFemale 05/31/2014 2:51 PM ESTGender IdentityNot on fileSexual OrientationNot on file documented as of this encounter Last Filed Vital Signs Vital SignReadingTime TakenCommentsBlood Ctbatmwh768/8305/03/2025 2:05 PM EST Hqkdr3951/11/2025 2:05 PM WTOXpiycaghaop18.5 ??C (97.7 ??F)05/03/2025 2:05 PM ESTRespiratory Hqql993707/04/2024 2:05 PM ESTOxygen Uxxxpovuug54%05/03/2025 2:05 PM ESTInhaled Oxygen Concentration--Weight--Height--Body Mass Index--documented in this encounter Functional Status * Are you deaf or do you have serious difficulty hearing?AnswerDate of WlvuagccxfJmgkmrXl33/04/2015 11:14 AM Chichi Stevens Ma * Are you blind or do you have serious difficulty seeing, even when wearing glasses?AnswerDate of IbgghkbohyWekcpnVz86/04/2015 11:14 AM Chichi Stevens Ma * Do you have serious difficulty walking or climbing stairs?AnswerDate of VrwymztliaXxbugzDtv94/04/2015 11:14 AM Chichi Stevens Ma * Do you have difficulty dressing or bathing?AnswerDate of AssessmentAuthorYes 12/25/2014 11:14 AM Chichi Stevens Ma * Because of a physical, mental, or emotional condition, do you have difficulty doing errands alone such as visiting a doctor's office or shopping?AnswerDate of RyfmntfmdvXeikfpFi00/04/2015 11:14 AM Chichi Stevens Ma documented as of this encounter Mental Status * Because of a physical, mental, or emotional condition, do you have serious difficulty concentrating, remembering, or making decisions?AnswerEntry Date ArkhxwJa90/04/2015 11:14 AM Chichi Stevens Ma documented in this encounter Plan of Treatment DateTypeDepartmentCare Team (Latest Contact Info)Okkxadkyvbb40/20/2025 9:00 AM [facility] Rheumatology [address] [place] [address] Sandra Park MD [address] [place], [place] [id number] follow up per otlcriru81/31/2025 9:00 AM [facility] Hematology/Oncology [address] [place] [address] IVIG Q 3 WEEKS06/13/2025 8:[address] [facility] Laboratory [address] [place] [address] 12 week follow up IVIG06/13/2025 9:00 AM ESTVisit (SP) Office Hematology/Oncology [address] [place] [address] Fara Lopez APRN.AWNING HANGER HELPER [address] [place] [address] 12 week follow up IVIG06/13/2025 9:30 [facility] [address] [place] [address] 12 week follow up IVIGdocumented as of this encounter Visit Diagnoses Diagnosis Other systemic lupus erythematosus with other organ involvement (HCC)- Primary documented in this encounter Administered Medications Medication OrderMAR ActionAction DateDoseRateSite acetaminophen 1,000 mg tab(s) (TYLENOL) 1,000 mg, ORAL, ONCE, 1 dose, On Delmi 05/03/25 at 1430 Indications:Other systemic lupus erythematosus with other organ involvement (HCC)Given05/03/2025 2:18 PM EST1,000 mg belimumab 1,280 mg in NaCl 0.9% 250 mL (BENLYSTA) 1,280 mg (rounded from 1,297 mg = 10 mg/kg/dose ?? 129.7 kg), INTRAVENOUS, at 250 mL/hr, Administerover 60 Minutes, ONCE, 1 dose, On Delmi 05/03/25 at 1430, Total Volume - EXP: 05/03/2025 2200 RT Protect From Light Indications:Other systemic lupus erythematosus with other organ involvement (HCC)New Bag/Syringe/Vqbrng1005/03/2025 2:30 PM EST1,280 mg250 mL/hr diphenhydrAMINE 25 mg tablet (BENADRYL) 25 mg, ORAL, ONCE, 1 dose, On Delmi 05/03/25 at 1430 Indications:Other systemic lupus erythematosus with other organ involvement (HCC)Given05/03/2025 2:18 PM EST25 mgdocumented in this encounter Care Teams Team MemberRelationshipSpecialtyStart DateEnd Date Manuel Klein MD PCP - GeneralFamily Sijjhvqe19/7/22 Manuel Klein MD ReferringFamily Medicine02/12/22 Manuel Klein MD [facility] [place] [address] ReferringFamily Medicine07/06/24documented as of this encounter
--- OUTSIDE RECORDS SUMMARY | 2025-05-04 06:30 | XMS_ITS ---
Author Organization [facility] in [place] Address [address] [place] [address] Care Team Providers Care Cv/Cvn Cv Tsc System Operator Name Role Phone Gay De La Torre Primary Care Provider REASON FOR VISIT [phone] heart rate Medications Medication SIG (Take, Route, Frequency, Duration) Notes Start Date End Date Status Singulair 10 MG 1 tablet Orally Once a day; Dura tion: 30 days 5ActiveClobetasol Propionate 0.05 %APPLY TO SCALP IN SHOWER 3 TO 4 TIMES A WEEK External; Duration: 30 DaysActiveTrulicity 1.5 MG/0.5MLas directed Subcutaneous weekly; Duration: 28 days5ActiveMetoprolol Tartrate 100 MG 1 tablet Orally 3 times a day; Duration: 90 daysActiveBenlysta 200 MG/QT697fa Subcutaneous once weeklyActiveNizatidine 150 MG1 capsule Orally Once a day; Duration: 30 days5ActiveVoltaren 1 %as directed Externally as needed 4ActiveBlood Glucose Test -as directed In Vitro daily; Duration: 90 days5ActiveNystatin 886315 UNIT/ML5 ml Mouth/Throat Four times a day; Duration: 7 daysActiveFluticasone Propionate (Inhal) 100 MCG/ACT1 puff Inhalation Twice a day; Duration: 30 days5ActivePregabalin 75 MG3 capsule Orally once daily- as needed; Duration: 30 daysPRNActiveTriamcinolone Acetonide 0.025 %APPLY TO AFFECTED AREA TWICE DAILY NEEDED FOR 30 DAYS External; Duration: 30 DaysActiveVitamin D (Ergocalciferol) 1.25 MG (52129 UT)1 capsule Orally once weekly; Duration: 28 daysActivePantoprazole Sodium 40 MG1 tablet 1/2 to 1 hour before morning meal Orally Once a day; Duration: 90 days 5ActivepredniSONE 10 MG1 tablet Orally once daily; Duration: 30 days ActiveBlood Glucose Monitor System w/Deviceas laufepye16/12/2025ActiveMounjaro 2.5 MG/0.5MLas directed Subcutaneous weekly; Duration: 28 dayscall for next dose 5ActiveLancets -daily; Duration: 90 days05/04/2025tive Hydroxychloroquine Sulfate 400 MG1 capsule Orally once daily; Duration: 30 days ActiveKlonoPIN 0.5 MG 1 tablet Orally Once a day prn; Duration: 30 days F41.9 5ActiveCyanocobalamin 1000 MCG/ML1 mL Injection glqpqsq2712/28/2023ctive Cymbalta 20 MG1 capsule Orally Once a day; Duration: 30 days02/01/2024ctive Fluocinonide 0.05 %1 application Externally Once a day- as needed; Duration: 30 daysActiveFolic AcidActive Encounters Encounter Location Date Provider Diagnosis [facility] [address] [place] [address] 05/04/2025 Gay De La Torre GERD (gastroesophage al reflux disease) K21.9 ; Type 2 diabetes mellitus E11.9 ; SOB (shortness of breath) on exertion R06.02 and Hypertension I10 Assessments Encounter Date Diagnosis (ICD Code) Assessment Notes Treatment Notes Treatment Clinical Notes Section Notes 05/04/2025 GERD (gastroesophageal reflux di sease) (ICD-10 - K21.9) 05/04/2025Type 2 diabetes mellitus (ICD-10 - E11.9)05/04/2025SOB (shortness of breath) on exertion (ICD-10 - R06.02)stress test?05/04/2025Hypertension (ICD-10 - I10) Plan Of Treatment Medication Medication Name Sig Start Date Stop Date Notes Singulair 10 MG 1 tablet Orally Once a day; Duration: 30 days 05/04/2025 Trulicity 1.5 MG/0.5MLas directed Subcutaneous weekly; Duration: 28 days 03/05/2025Metoprolol Tartrate 100 MG1 tablet Orally 3 times a day; Duration: 90 daysNizatidine 150 MG1 capsule Orally Once a day; Duration: 30 days05/04/2025 Blood Glucose Test -as directed In Vitro daily; Duration: 90 days05/04/2025lood Glucose Monitor System w/Deviceas dwokbqry44/12/2025Lancets -daily; Duration: 90 days05/04/2025Treatment Notes Assessment Notes SOB (shortness of breath) on exertion st ress test? Next Appt Details Follow Up: prn, Reason: Progress Notes * Ariadna PANIAGUA BDOB:1980 (44 yo F)Acc No.[id number]:05/04/2025 UNLOCKED PROGRESS NOTE TeleMed via Doxy Patient: Abiola GUARDADOMICHAEL Ariadna Melissa :?Gay De La Torre ([facility]), CNPDOB:1980 ???Age:44 Y???Sex:FemaleDate:05/04/2025Phone:[phone]:[address] [facility], [place]Evxoa In:11:10 AM KATARZYNACheck Out:12:57 PM EST Subjective: * Chief Complaints: * 1 . [phone] heart rate. * HPI: ???General:? HR 130 this am metoprolol seems to wear off in middle of the day and heart rate goes up oxygen 95-96%, drops down to 91% with exertion is sedentary? took singulair in past wants to restart heartburn , ppi helps some, wants to add a med she looked up needs glucose meter BS 200 last labs telephone visit. * ROS: ???General/Constitutional:?Fever?denies.?Headache?denies.?Weight loss denies.?Ophthalmologic:?Discharge?denies.?Eye Pain?denies.?Itching and redness?denies.?ENT:?Nasal discharge?denies.?Nasal congestion?denies. Sore throat?denies.?Cardiovascular:?Chest tightness/ heavy pressure?denies.?Rapid heart rate?with activity.?Swelling of extremities?denies.?Chest pain?denies.?Respiratory:?Productive cough?denies.?Chest pain?denies.?Cough?denies.?Shortness of breath?admits, with activity.?Wheezing?denies.?Gastrointestinal:?Acid Reflux/GERD/Heartburn?admits.?Abdominal pain?denies.?Constipation?denies.?Decreased appetite?denie s.?Diarrhea?denies.?Nausea?denies.?Vomiting?denies.?Genitourinary:?Urinary incontinence?denies.?Painful urination?denies.?Musculoskeletal:?Back pain?denies.?Neck pain?denies.?Muscle aches?denies.?Skin:?Rash?denies.?Skin lesion(s)?denies.? * Medical History: * Medications: T paty Benlysta(Belimumab) 200 MG/ML Solution Prefilled Syringe 200mg [...] Once a day- as needed , Taking Fluticasone Propionate (Inhal) 100 MCG/ACT Aerosol Powder Breath Activated 1 puff Inhalation Twice a day , Taking Folic Acid , Taking Hydroxychloroquine [...] to Pharmacist: call for next dose, Taking Nystatin 337643 UNIT/ML Suspension 5 ml Mouth/Throat Four times a day , Taking [...] , Taking Vitamin D (Ergocalciferol) 1.25 MG (35803 UT) Capsule 1 capsule Orally once weekly , Taking Voltaren 1 % Gel as directed Externally as needed , Notes: Apply up to 4 g to each affected area up to 4 times daily Objective: * Vitals: Assessment: * Assessment: 1.?GERD (gastroesophageal reflux disease) - K21.9 (Primary)???2.?Type 2 diabetes mellitus - E11.9???3.?SOB (shortness of breath) on exertion - R06.02? ??4.?Hypertension - I10??? Plan: * Treatment: Start Nizatidine Capsule, 150 MG, 1 capsule, Orally, Once a day, 30 days, 30 Capsule, Refills 5. ?2.?Type 2 diabetes mellitus? Refill Trulicity Solution Auto-injector, 1.5 MG/0.5ML, as directed, Subcutaneous, weekly, 28 days, 4, Refills 5;?Start Blood Glucose Monitor System Kit, w/Device, as directed, 1, Refills 0;?Start Blood Glucose Test Strip, -, as directed, In Vitro, daily, 90 days, 90, Refills 3;?StartLancets Miscellaneous, - , daily, 90 days, 90, Refills 3.??3.?SOB (shortness of breath) on exertion? Start Singulair Tablet, 10 MG, 1 tablet, Orally, Once a day, 30 days, 30 Tablet, Refills 5.? Notes: stress test???4.?Hypertension? Refill Metoprolol Tartrate Tablet, 100 MG, 1 tablet, Orally, 3 times a day, 90 days, 270 Tablet, Refills 3.?? * Procedure Codes: 9 8968 TELEPHONE ASSES-21-30 MIN * Follow Up: p rn * * Electronic signature of Gay De La Torre NP, [employer] ROLL[employer].[id number] on 05/06/2025 at 12:35 AM ESTSign off status: PendingVisit Status:?CHK (Check Out) * Provider: Abiola De La Torre ([facility]), [employer] Date: 1 07/05/2024 Generated for Printing/Faxing/eTransmitting on:?05/06/2025 12:35 AM EST History and Physical Notes * HPI (History of Present Illness) CategorySub-CategoryDetailNotesCategory NotesGeneral HR 130 this am metoprolol seems to wear off in middle of the day and heart rate goes up oxygen 95-96%, drops down to 91% with exertion is sedentary took singulair in past wants to restart heartburn , ppi helps some, wants to add a med she looked up needs glucose meter BS 200 last labs telephone visit
--- OUTSIDE RECORDS SUMMARY | 2025-05-04 07:16 | XMS_ITS ---
Author Organization [facility] in [place] Address [address] [place] [address] Care Team Providers Care Choir Accompanist Name Role Phone Gay De La Torre Primary Care Provider REASON FOR VISIT needs stress test Procedures Procedure Date Ordered Date Performed Result Body Sit e *CARDIO Stress Test - Lexiscan Nuclear 5 N/A Encounters Encounter Location Date Provider Diagnosis [facility] [address] [place] [address] 05/04/2025 Gay De La Torre SOB (shortness of breath) on exertion R06.02 Assessments Encounter Date Diagnosis (ICD Code) Assessment Notes Treatment Notes Treatment Clinical Notes Section Notes 05/04/2025 SOB (shortness of breath) on exe rtion (ICD-10 - R06.02) Plan Of Treatment Pending Test Test Name Order Date *CARDIO Stress Test - Lexiscan Nuclear 1 07/05/2024 Progress Notes * Ariadna HALEY BDOB:1980 (44 yo F)Acc No.[id number]:05/04/2025 Patient:?Ariadna HALEY :1980???Age:44 Y???Sex:FemalePhone:[phone] Address:[address] [place] [address], [address] Subjective: * Chief Complaints: * N eeds stress test * Medical History: * Surgical History: * Hospitalization/Major Diagno stic Procedure: * Medications: Objective: * Vitals: * Physical Examination: ??? Assessment: * Assessment: 1.?SOB (shortness of breath) on exertion - R06.02 (Primary)??? Plan: * Treatment: ?Procedure: *CARDIO Stress Test - Lexiscan Nuclear * Procedure Codes: * true * Date:?Generated for Printing/Faxing/eTransmitting on:?05/06/2025 12:37 AM EST
[2025-05-05 23:55] VITALS: BP 138/90; PULSE 95; TEMP 36.7; O2SAT 98; BMI 43.9
[2025-05-05 23:56] VITALS: BP 138/90; O2SAT 98
[2025-05-05 23:58] VITALS: PULSE 82
[2025-05-06] VITALS (33 sets, daily range): BP systolic 83–129; BP diastolic 50–92; PULSE 70–87; O2SAT 94–99
--- NOTE | 2025-05-06 00:12 | ECG_ITS ---
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 Measurements Intervals [place] Rate: 82 P: 55 RI: 166 QRS: 7 QRSD: 80 T: 56 QT: 360 QTc: 398 Interpretive Statements 1100 Sinus rhythm 8102 Low QRS voltage in chest leads 9120 atypical ECG Compared to ECG 12/05/2023 16:27:52 No significant changes Electronically Signed On 05-06-2025 10:34:38 EST by GURWINDER BARONE M.D.
--- OUTSIDE RECORDS SUMMARY | 2025-05-06 00:36 | XMS_ITS | Encounter Summary ---
Author Organization [facility] Address [address] [place] [address] Care Team Providers Care After School Counselor Name Role Phone Manuel Klein MD Unavailable [phone] Manuel Klein MD Primary Care Provider [phone] Manuel Klein MD Unavailable [phone] Source Comments In the event this information is protected by the Federal Confidentiality of Alcohol and Drug AbusePatient Records regulations: The Federal rules restrict any use of the information to criminally investigate or prosecute any alcohol or drug abuse patient.[facility] Encounter Details DateTypeDepartmentCare Team (Latest Contact Info)Mtgwrryalvk82/07/2025Travel Social History Tobacco UseTypesPacks/DayYears UsedDateSmoking Tobacco: Every UeaFypewkzziz670 Smokeless Tobacco: NeverAlcohol UseStandard Drinks/WeekCommentsNo0 (1 standard drink = 0.6 oz pure alcohol)PHQ-2AnswerDate RecordedPHQ-2 ayqxk1914Area Deprivation IndexAnswerDate RecordedNational Score (1-100), lower number is lower pviq970809/24/2022State Score (1-10), lower number is lower pvga382 Data from: https://www.neighborhoodatlas.[facility]/. Last address used for dywrowztpma[address]CommentsNoSex and Gender InformationValueDate RecordedSex Assigned at BirthNot on fileLegal SexFemale 05/31/2014 2:51 PM ESTGender IdentityNot on fileSexual OrientationNot on file documented as of this encounter Functional Status * Are you deaf or do you have serious difficulty hearing?AnswerDate of LsfwnnwhxxRmrvgwYv87/04/2015 11:14 AM Chichi Stevens Ma * Are you blind or do you have serious difficulty seeing, even when wearing glasses?AnswerDate of BpyouuwozcDeqzzaMi18/04/2015 11:14 AM Chichi Stevens Ma * Do you have serious difficulty walking or climbing stairs?AnswerDate of PtkugihhhiOfjfxrNmt33/04/2015 11:14 AM Chichi Stevens Ma * Do you have difficulty dressing or bathing?AnswerDate of AssessmentAuthorYes 12/25/2014 11:14 AM Chichi Stevens Ma * Because of a physical, mental, or emotional condition, do you have difficulty doing errands alone such as visiting a doctor's office or shopping?AnswerDate of HoqjtaoyefWjfltvSg69/04/2015 11:14 AM Chichi Stevens Ma documented as of this encounter Mental Status * Because of a physical, mental, or emotional condition, do you have serious difficulty concentrating, remembering, or making decisions?AnswerEntry Date HyqwsrJe77/04/2015 11:14 AM Chichi Stevens Ma documented in this encounter Plan of Treatment DateTypeDepartmentCare Team (Latest Contact Info)Iwnzipjrqav35/20/2025 9:[address] [facility] Rheumatology [address] [place] [address] Sandra Park MD [address] [facility] [place] [address] follow up per xouultdj19/31/2025 9:00 AM [facility] Hematology/Oncology [address] [place] [address] [place] [address] IVIG Q 3 WEEKS01/ 8:45 AM ESTOffice Visit [facility] [address] [place] [address] 12 week follow up IVIG06/13/2025 9:00 AM ESTVisit (SP) Office Hematology/Oncology [address] [place] [address] Fara Lopez APRN.MARKETING DEVELOPMENT REPRESENTATIVE [address] [place] [address] 12 week follow up IVIG06/13/2025 9:[facility] [address] [place] [address] 12 week follow up IVIGdocumented as of this encounter Visit Diagnoses Not on filedocumented in this encounter Care Teams Team MemberRelationshipSpecialtyStart DateEnd Date Manuel Klein MD PCP - GeneralFamily Ajsiqiow32/7/22 Manuel Klein MD ReferringFamily Medicine02/12/22 Manuel Klein MD [facility] [place] [address] ReferringFamily Medicine07/06/24documented as of this encounter
--- OUTSIDE RECORDS SUMMARY | 2025-05-06 00:36 | XMS_ITS | Clinical Summary ---
Author Organization [facility] Address [address] [place] [address] Phone Care Team Providers Care Secretary Book Keeper Name Role Phone Mitali, Michelle London DRYWALL STRIPPER HELPER-QA AUTOMATION ARCHITECT Unavailable [phone] Kenneth Patel MD Unavailable [phone] Gay De La Torre DRYWALL STRIPPER HELPER-QA AUTOMATION ARCHITECT Primary Care Provider Allergies Active AllergyReactionsCriticalityNoted DateCommentsDoxycyclineOther,UnknownLow 01/19/2022 Patient states it was a long time ago and she did not have a severe reaction. She does not believe she is allergic, she just thinks she just experienced side effects. Sulfamethoxazole-TrimethoprimSwelling,CzqjuJtj37/03/2016 Patient states it was a long time [...] a week10/23/2022ctive ergocalciferol (Vitamin D-2) 1.25 MG (32477 UT) capsule Take 1 capsule (50,000 Units) [...] tablet /ctive Active Problems ProblemNoted DateDiagnosed DateCurrent tkmxor1807/13/2023aroxysmal supraventricular gvxiogwtopn37/20/2024Shortness of prahcr9707/13/2023AC (premature atrial contraction)07/13/20230053Fegnlgy71/17/2024epression, recurrent 06/09/20237644Lcgldxtbx02/17/2024Essential bjtmoaydzrmg78/17/2024utonomic coyjgkkqaal11/09/2024Obesity, Class III, BMI 40-49.9 (morbid obesity)09/07/2022 Obstructive sleep apnea yxsymrkz42/28/2022nemia, bhuknbybtpv48/19/2022iscoid lupus ojuodusseqigy27/24/2022Vitamin D vxodaobxxb36/14/2021hronic bilateral low back pain with bilateral fdbohvoh95/08/1839Oupbkguvefimuk46/08/2015Vitamin B12 iqwhttvuvk67/08/2015 Resolved Problems ProblemNoted DateDiagnosed DateResolved BbtmJpmwpmsjoah13/09/202403/09/2024 Family History Medical HistoryRelationNameCommentsNo Known ProblemsBrotherCancerFatherCrohn's diseaseMotherHeart diseaseSisterRelationNameStatusCommentsBrotherFatherMother Sister Social History Tobacco UseTypesPacks/DayYears UsedDateSmoking Tobacco: Every DayCigarettes Smokeless Tobacco: Never Tobacco Cessation:Ready to Q uit: No; Counseling Given: Yes Alcohol UseStandard Drinks/WeekCommentsNever0 (1 standard drink = 0.6 oz pure alcohol)CommentsUnknownSex and Gender InformationValueDate RecordedSex Assigned at BirthNot on fileLegal ZlaEuvdce76/25/2022 9:42 PM ESTGender Identity Ygiwte6702/21/2024 7:13 PM EDTSexual OrientationNot on file Last Filed Vital Signs Vital SignReadingTime TakenCommentsBlood Rctigjah958/6003 3:06 PM EST Pmvlw928907/26/2024 3:06 PM ESTTemperature--Respiratory Rate--Oxygen Saturation-- Inhaled Oxygen Concentration--Enezhf712 kg (286 lb 12.8 oz)07/26/2024 3:06 PM ZOFEkvvfl072.2 cm (5' 7 )07/26/2024 3:06 PM ESTBody Mass Index44.9207/26/2024 3:06 PM EST Plan of Treatment DateTypeDepartmentCare Team (Latest Contact Info)Sjlogfpvlku09/05/2026 11:00 AM ESTOffice Visit [facility] [address] [facility] [address] [place] [address] Lois Arguelles MD [address] [facility] [address] [place] [address] Health MaintenanceDue DateLast DoneCommentsHIV Jvduhkfld86/14/1981Lipid Panel 1980MMR Vaccines (1 of 1 - Standard series)1981Hepatitis C Screening 1998Hepatitis B Vaccines (1 of 3 - 19+ 3-dose series)10/05/1999 Pneumococcal Vaccine: Pediatrics and At-Risk Adult Patients (1 of 2 - PCV) 10/05/1999Zoster Vaccines (1 of 2)10/05/1999HPV/Aycrfi9110/04/2001DTaP/Tdap/Td Vaccines (1 - Tdap)2002HPV Vaccines (1 - Risk 3-dose Standard series) 10/05/2007Diabetes Qzgtihgog472COVID-19 Vaccine (3 - Pfizer risk series)/07/2022, 02/08/2022Influenza Vaccine (#1)2024 Rrotozrci17/14/493746/Yearly Adult Psscemjq06/15/449772/5Cervical Cancer Eppgambbh18/14/2028Pap Smear801/, 05/04/2008HIB Vaccines Aged OutNo longer eligible [...] complete this topic Procedures Procedure NamePriorityDate/TimeAssociated DiagnosisCommentsCONVERTED CHANNELING MACHINE RUNNER PUUCMQGMLzlmirs16/12/2008 12:00 AM EST from Last 3 Months or Most Recently Relevant to Health Maintenance Results * CONVERTED CHANNELING MACHINE RUNNER CYTOLOGY (05/04/2008 12:00 AM EST)ComponentValueRef RangeTest MethodAnalysis [...] ? - Signed by: JESSICA ORTIZ [facility] ?05/09/08 Electronically Signed Out By [facility], Cytology/ By the signature on this report, [...] Specimen A: Unknown Part Type [facility] Department of Pathology [address] COPATHCONVERTED FINAL DIAGNOSISSatisfactory for evaluation. Transformation [...] ? - Signed by: JESSICA ORTIZ [facility] ?05/09/08 [facility] COPATHCONVERTED CLINICAL DIAGNOSIS-HISTORY- HISTORY [...] ORTIZ ? SOUT ?05/09/08 1524 ??ANGELMEANTORIE ?- [place] Conversion Report - [facility] COPATHCONVERTED FINAL REPORT PDF LINK TO COPY AND PASTE \copathshare\copath\PDF \[id number].pdfSELECT [facility] COPATHSpecimen (Source) Anatomical Location / LateralityCollection Method / VolumeCollection Time Received TimeUnrecognized Part Type 11:28 AM EST Narrative Authorizing ProviderResult TypeResult StatusCopath ConversionLAB CYTOLOGY ORDERABLESFinal ResultPerforming OrganizationAddressCity/State/ZIP CodePhone Number [facility] COPATH [address] [place] [address] from Last 3 Months or Most Recently Relevant to Health Maintenance Insurance MemberSubscriberPlan / Payer (Effective 2017-Present)Name:Ariadna Paniagua Relation to Subscriber:SelfName:Ariadna arias Payer ID:[id number] (NAIC) Group ID:[id number] Type:Not on file Address: [address] [place] [id number] Care Teams Team MemberRelationshipSpecialtyStart DateEnd Date Gay De La Torre, DRYWALL STRIPPER HELPER-QA AUTOMATION ARCHITECT [address] [place] [address] PCP - General07/13/23 Michelle Jasmine, DRYWALL STRIPPER HELPER-QA AUTOMATION ARCHITECT Nurse PractitionerCardiology06/08/23 Kenneth Patel MD Consulting PhysicianCardiology06/23/23
--- OUTSIDE RECORDS SUMMARY | 2025-05-06 00:37 | XMS_ITS | Clinical Summary ---
[facility] Organization [facility] Address [address] [place] [address] Care Team Providers Care Grid Molder Name Role Phone Gay De La Torre Lucinda [facility] Primary Care Provider [phone] Allergies Active AllergyReactionsCriticalityNoted ZowgZrpeuymcMdbdopgyjxbXse70/12/2022 Other Reaction(s): Unknown Patient states it was [...] she just experienced side effects. CodeineShortness of NeghctEqxf71/22/2025 Other Reaction(s): jittery Bivleujrogs43/17/2023 Other Reaction(s): Unknown KcccdNcrqNsw23/08/2015 Other Reaction(s): Rash Patient states it was [...] just thinks she just experienced side effects. Tqwovwcpeo45/16/2024 Other Reaction(s): Other Ykasderekazy43/16/2024 Other Reaction(s): Other Sulfa QcnqfwcyelyGajdcrib49/22/2025Sulfamethoxazole-TrimethoprimDyspepsia, FdjnvvvlZot23/17/2021 Patient states it was a long time ago and she did not have a severe reaction. She does not believe she is allergic, she just thinks she just experienced side effects. Ytunapvfzldq60/22/2025 Other Reaction(s): unknown Medications MedicationSigDispense QuantityRefillsLast FilledStart [...] capsule by mouth daily.02/22/2025tive Ergocalciferol 1.25 MG (46610 UT) capsule Take 1 capsule by mouth [...] Take 1 tablet by mouth daily.11/17/2024tive Nystatin 627165 UNIT/ML oral suspension Swish and spit 4 [...] route once.11/23/2024tive Active Problems ProblemNoted DateDiagnosed DateFatty liver03/14/20254244Rklyxdxjbjyj66/22/2025 Nontoxic single thyroid rqiegh9803/14/2025Type 2 diabetes aoplesxi00/22/2025 Pilonidal kkunnhx7302/28/20259063Aanfbounkrqugoggdaihi35/09/2024. difficile diarrhea 03/07/20249689Sxvetnik74/15/2024uct ectasia of wbzgib2403/07/2024Gastroesophageal reflux qmlxzkd9403/07/2024Insulin ozkqoohucx76/15/2024Facet arthritis of lumbar rkwjwj9412/15/2023ischarge from oahoco6811/15/2023Irregular periods/menstrual sopwtn9811/15/20238048Ssfygcnxhdeo23/17/2024Lumbosacral havmlxzname07/17/2024 Bwehamwomuy67/02/7737Nelaim42/19/2024ure uttjyqnxlcyjnfawpmdd52/19/2024Thyroid ckntbr8708/10/2023AC (premature atrial contraction)07/13/2023aroxysmal supraventricular dlvqojsyyov93/20/2024Shortness of resfjv0807/13/2023ervical tfukxusnlfuio15/13/2024hronic qqotccylffkogwrmjx69/13/2024Tobacco use disorder 07/06/2023 Overview (03/14/2025): Added secondary to documentation in Social History. Added secondary to documentation in Social History. Cytomegalovirus ijzhhfvxu29/13/2024isturbance of skin gusngubmn80/13/2024 Enthesopathy of hip xzxrxh6207/06/2023LPRD (laryngopharyngeal reflux disease) 07/06/2023Lumbosacral radiculopathy at L507/06/20236876Ebydnpr13/13/2024Oral lesion 07/06/2023ain, hip07/06/2023hronic fatigue bvzvgzul34/18/4320Eiziwnu11/17/2024 Depression, xfmbvyimz86/17/2024Essential grqewpikpneu20/17/2024utonomic /09/2024Nonintractable episodic iqarjqmb36/09/2024izziness 06/01/20230128Rzkzzhdgjej38/09/2024ilateral wrist pain02/04/2023Raynaud's disease 02/04/2023Steroid-induced sihktmgseacx81/14/2023Excessive and frequent menstruation with irregular cycle09/24/20222126Omrsqwy96/17/2023NA positive 06/15/2022Sleep apnea05/20/2022omnolence, hhiwmjk6005/20/2022nemia, unspecified 03/11/2022Megaloblastic anemia due to vitamin B12 ubqpskfifm60/12/2022iscoid lupus zhgdjxzidibrg20/24/0718Jekcqojbxalm00/03/2022ystemic lupus erythematosus 10/24/2021heumatoid citkjndrp67/05/2022Vitamin D gdsewjgifv80/14/2021ilateral leg /13/2021hronic pain of toes of both feet03/05/2021High total serum IgM03/05/2021Hair loss03/05/2021ash and nonspecific skin eruption 03/05/2021econdary osteoarthritis of multiple sites03/05/2021welling of lymph nodes03/05/2021ilateral nlktuxoddbeo40/22/7661Leslwd64/08/2015Chronic pain hepctuqo84/08/6199Jsydnsndxdsthq23/08/2015Vitamin B12 gapbfeunbl03/08/2015 Encounters DateTypeDepartmentCare RkcfChzkijbxwrd88/27/2025Telephone [facility] Infectious Disease [address] [place] [address] Stacy Boyer Gxvbmvd2103/14/2025 12:00 PM EDTOffice Visit [facility] [address], [place] [id number] Colleen Hamilton MD Nipple discharge in female (Primary Dx); Type 2 diabetes mellitus with other specified complication, unspecified whether alf insulin use; Obesity with serious comorbidity in pediatric patient, unspecified obesity class, unspecified obesity type; IgG deficiency; Recurrent infections; Pilonidal abscess; Tobacco use disorderfrom Last 3 Months Social History Tobacco UseTypesPacks/DayYears UsedDateSmoking Tobacco: Every DayCigarettes Smokeless Tobacco: Never Tobacco Cessation:Ready to Q uit: No; Counseling Given: No CommentsNoSex and Gender InformationValueDate RecordedSex Assigned at BirthNot on fileLegal KjiCaruzu36/04/2024 9:51 AM ESTGender IdentityNot on file Sexual OrientationNot on file Last Filed Vital Signs Vital SignReadingTime TakenCommentsBlood Vsdhjwtc420/8203/14/2025 11:52 AM EDT Vejsc431703/14/2025 11:52 AM ZLEIbxlroigeou34 ??C (98.6 ??F)03/14/2025 11:52 AM EDTRespiratory Npjd6572 11:52 AM EDTOxygen Ychgnzqgdh69%03/14/2025 11:52 AM EDTInhaled Oxygen Concentration--Svdjdc036.8 kg (290 lb 9.6 oz)03/14/2025 11:52 AM EDTHeight--Body Mass Index-- Plan of Treatment Health MaintenanceDue DateLast DoneCommentsHEPATITIS C VIRUS RVAUAYVZD90/14/1981 XQVCEPA78 1980HIV SCREENING NLMFFDUKCS67/14/1996HEP B VACCINE (1 of 3 - 19+ 3-dose series)10/05/1999PNEUMOCOCCAL VACCINE SERIES (1 of 2 - PCV)10/05/1999TDAP (ADULT)10/05/1999ZOSTER (SHINGLES) VACCINE (1 of 2)10/05/1999CERVICAL CANCER SCREENING SZAWJDBVHE50/14/2002HPV VACCINE (1 - 3-dose SCDM series)10/05/2007 LIPID EXTXYKYPR45/14/2021MAMMOGRAM SCREENING TBSEVQBOPZ76/14/2021OVID-19 VACCINE ( season)51, 02/08/2022, 05/26/2021, Additional history existsINFLUENZA VACCINE (#1)01/22/2025 Procedures Procedure NamePriorityDate/TimeAssociated DiagnosisCommentsCULTURE WOUNDToday 03/14/2025 1:00 PM EDT Nipple discharge in female CULTURE BAZQIOdfkj69/22/2025 1:00 PM EDT Nipple discharge in female REFERRAL (OUTSIDE)Wpdchpy8303/08/2025 2:11 PM EDTfrom Last 3 Months Results * CULTURE WOUND (03/14/2025 1:00 PM EDT) Only the most recent of2 resultswithin the time period is included. ComponentValueRef RangeTest MethodAnalysis TimePerformed AtPathologist Signature SPECIMEN DESCRIPTIONWOUNDEAST [facility] - [address] - BUCYRUSCOMMENTLEFT NIPPLE DISCHARGEBUCLINTON MEMORIAL [facility] - [address] - BUCYRUSGRAM STAINNO[address]Comment: WBC'S SEEN NO ORGANISMS SEEN RESULT-CULTNO GROWTH [address]Comment:Testing performed at [place] [address] Report Cynupy2803/16/2025[address] Comment:FINALSpecimen (Source)Anatomical Location / LateralityCollection Method / VolumeCollection TimeReceived TimeWoundSPECIMEN COLLECTION BY DRAINAGE / Gbdavbk9703/14/2025 1:00 PM EDT1 1:18 PM EDT Narrative Authorizing ProviderResult TypeResult StatusNancy F Alfonso MDMICROBIOLOGY - GENERAL ORDERABLESFinal ResultPerforming OrganizationAddressCity/State/ZIP Code Phone Number [facility] - [address] [place] [id number] [facility] - [address] - [address] [address] [place] [address] * REFERRAL (OUTSIDE) (03/08/2025 2:11 PM EDT) Narrative Authorizing ProviderResult TypeResult StatusHistorical ProviderOSU OUTPATIENT REFERRALSFinal Result from Last 3 Months Insurance Care Teams Team MemberRelationshipSpecialtyStart DateEnd Date Gay De La Torre, TRUE [address] [place] [address] PCP - GeneralNurse Practitioner - Opmtci29/4/24
--- OUTSIDE RECORDS SUMMARY | 2025-05-06 00:37 | XMS_ITS | Clinical Summary ---
Author Organization [facility] Address [address] [place] [address] Care Team Providers Care Dampener Operator Name Role Phone Gay De La Torre CNP Primary Care Provider [phone] Allergies Active AllergyReactionsCriticalityNoted MgqbOvqndttgCfthyawyaxBemik26/16/2024 FifevhqeqbecHnpxt45/16/9958PqmypxsajshuvieiFanbn68/08/2015 Other Reaction(s): gi Other Reaction(s): lymph swelling CAUSED ENLARGED LYMPH NODES Sulfamethoxazole-TrimethoprimOther,GI intolerance,LxdhgsmyBkq99/03/2016 Patient states it was a long time [...] auto-injector Inject 200mg (1 pen) subcutaneously once dwhfir7602/04/2023ctive Active Problems ProblemNoted DateDiagnosed LtrtTdkofpei21/15/2024uct ectasia of breast 03/07/2024GERD (gastroesophageal reflux disease)03/07/2024Insulin resistance 03/07/2024Lumbosacral lkdumknlsgu46/15/2024bdominal sytoduqx27/15/2024. difficile asmjxpzh71/15/2024Facet arthritis of lumbar mchofr6812/15/2023ischarge from miihyd2111/15/2023Irregular periods/menstrual tgkjpr4311/15/2023egenerative disc disease, svypmv9211/08/2023History of vitamin D pbtugibobq28/14/2024Hoarse 08/10/2023ure hypercholesterolemia, ooqjtgohdwk95/19/2024Thyroid nodule 08/10/2023AC (premature atrial contraction)07/13/2023aroxysmal supraventricular eteuxqnkvzz50/20/2024Shortness of pbfxdj0807/13/2023ervical zuvhrkzlimifu79/13/2024hronic zsgdntnyyjkactlpbc02/13/2024urrent smoker 07/06/2023 Overview (03/07/2024): Added secondary to documentation in Social History. Added secondary to documentation in Social History. Cytomegalovirus mcaujdwtq50/13/2024isturbance of skin zsbobsssk06/13/2024 Enthesopathy of hip qyhwlb8807/06/2023LPRD (laryngopharyngeal reflux disease) 07/06/2023Lumbosacral radiculopathy at L507/06/20237547Wczzspu23/13/2024Oral lesion 07/06/2023ain, hip07/06/2023hronic fatigue and ixfolud0506/10/2023nxiety 06/09/20239682Bamklbsdc02/17/2024epression, hismjdzba19/17/2024Essential ezwnsmebjnpf98/17/2024utonomic /09/3298Opdrrxuip28/09/2024 Isgswhvptqd48/09/2024ilateral wrist pain02/04/2023Long term current use of systemic gdytipum64/14/2023Raynaud's disease without ohyeoevh72/14/2023Steroid- induced tkvrpdyxckzd55/14/2023Excessive and frequent menstruation with irregular cycle09/24/2022Obesity, Class III, BMI 40-49.9 (morbid obesity)09/07/2022NA /23/2023Long-term use of high-risk imfiketwcz42/23/2023Obstructive sleep apnea /28/2022omnolence, rulolxf2505/20/2022nemia, unspecified 03/11/2022Megaloblastic anemia due to vitamin B12 xcltpbuhdi82/12/2022iscoid lupus frhbrcwsynkeb39/24/2022Vitamin D wenjsfcffr40/14/2021ilateral leg kxnqmebu28/13/2021hronic pain of toes of both feet03/05/2021levated sed rate 03/05/2021Family history of Crohn's unqeqtv3803/05/2021Hair loss03/05/2021ong- term use of Rfldkclnf17/13/2021Rash and nonspecific skin ucwlxqtg84/13/2021 Secondary osteoarthritis of multiple sites03/05/2021welling of lymph nodes 03/05/20216830Hgajyf48/08/2015Chronic bilateral low back pain with bilateral rfgjbopg18/08/0398Qrasmjauzdwhbu27/08/2015Vitamin B12 stdqlsirdw54/08/2015 Family History Medical HistoryRelationNameCommentsHeart attackMaternal GrandfatherHeart failure [...] InformationValueDate RecordedSex Assigned at BirthNot on fileLegal DzkZtntcf12/30/2022 8:07 PM ESTGender IdentityNot on fileSexual OrientationNot on file Last Filed Vital Signs Vital SignReadingTime TakenCommentsBlood Uyxtqmcv605/8210/ 10:12 AM EDT Vxhcu534903/08/2024 10:12 AM EDTTemperature--Respiratory Rate--Oxygen Saturation 98%03/08/2024 10:00 AM EDTInhaled Oxygen Concentration--Dfadeh062 kg (275 lb) 03/08/2024 10:00 AM IBBSaklpc095.2 cm (5' 7 )03/08/2024 10:00 AM EDTBody Mass Index43.0703/08/2024 10:00 AM EDT Plan of Treatment Health MaintenanceDue DateLast DoneCommentsDepression Dqqylyvwt88/14/1993 Varicella Vaccines (1 of 2 - 13+ 2-dose series)1993Hepatitis B Vaccines (1 of 3 - 19+ 3-dose series)10/05/1999Pneumococcal Vaccine: Pediatrics (0 to 5 Years) and At-Risk Patients (6 to 64 Years) (1 of 2 - PCV)10/05/1999Adult Ocxkdfs0810/04/2002HPV Vaccines (1 - 3-dose SCDM series)10/05/2007HPV/Cotest 2010Cervical Cancer Lrjpvvooq34/12/2011Pap Smear Ihubfsjvl48/14/2021OVID-19 Vaccine ( season)51, 02/08/2022, 05/26/2021, Additional history [...] MemberRelationshipSpecialtyStart DateEnd Gay De La Torre CNP [facility] [facility], [address] [place], [place] [id number] PCP - GeneralFamily Movnsmwg08/9/24
--- OUTSIDE RECORDS SUMMARY | 2025-05-06 00:37 | XMS_ITS | Clinical Summary ---
Author Organization [employer] Address [id number] 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 Tyehdhz8305/31/2014 Other Reaction(s): jittmayra, Other: See Comments, Trouble [...] as needed.Active Active Problems ProblemNoted DateDiagnosed DateLupus ibafedhacmpzg32/14/2024Sacroiliitis 04/06/2024hronic pain cuohsmhj75/14/2024aynaud's disease without gangrene 04/06/2024 Assessment & Plan (04/06/2024 10:10 AM EST): We will get lower extremity PVR with cold immersion test. I counseled her on the diagnosis and identifying and avoiding provoking factors. I also counseled her that managing her SLE and autoimmune connective tissue disorders is balderrama for managing her Raynaud's. All her questions were answered. Degenerative disc disease, nweqke9911/08/2023urrent denlfu1507/06/2023 Overview (04/06/2024): Added secondary to documentation in Social History. Added secondary to documentation in Social History. Cytomegalovirus hnsynipsr50/13/2024hronic fatigue and xhxlvyt95/ Zgglhnaaq73/17/9919Qgutslh08/17/2024utonomic wsligsfozhg87/09/2024utoimmune lzydsva4306/01/2023Systemic lupus tvuckbvzvitao22/03/5117Eoqlzbfbxjba06/03/2022 Rheumatoid dayfytzyh77/05/2022ilateral leg sahurhlr90/13/2021 Social History Tobacco UseTypesPacks/DayYears UsedDateSmoking Tobacco: Every DayCigarettes Smokeless Tobacco: Never Tobacco Cessation:Ready to Q uit: Not Asked; Counseling Given: Not Answered ChildcareAnswerDate CuhyzttmBampcgpogFrfajgj84/12/2019EmploymentAnswerDate AcilwfdnOqemcxlzmbXtiyxur01/12/2019Hunger ScreeningAnswerDate RecordedWithin the past 12 months we worried whether our food would run out before we got money to buy more.Never True04/06/2024Within the past 12 months the food we bought just didn't last and we didn't have money to get more.Never True04/06/2024 CommentsUnknownSex and Gender InformationValueDate RecordedSex Assigned at Not on fileLegal NjuVdagfx15/09/2017 3:06 PM ESTGender IdentityNot on fileSexual OrientationNot on file Last Filed Vital Signs Vital SignReadingTime TakenCommentsBlood Icqeiaar700/80106/06/2023 10:00 AM EST Xwudt275504/06/2024 10:00 AM MVJXxeugrdhnbp86.1 ??C (97 ??F)04/06/2024 10:00 AM ESTRespiratory Rate--Oxygen Wugzdkszuk81%04/06/2024 10:00 AM ESTInhaled Oxygen Concentration--Infyay007.7 kg (275 lb)04/06/2024 10:00 AM FSNWqprjg763.2 cm (5' 7 )04/06/2024 10:00 AM ESTBody Mass Index43.0704/06/2024 10:00 AM EST Plan of Treatment Health MaintenanceDue DateLast DoneCommentsTobacco Zajuwfjfrc44/14/1981 Depression Hvvwpffbw26/14/1993DTaP,Tdap and Td Vaccines (1 - Tdap)10/05/1999 COVID-19 Vaccine (6 - 2025-26 season), 02/08/2022, 05/26/2021, Additional history existsInfluenza Cfivufk83/01/2025Adult BMI Dlppdwkbg19/Tobacco Ejqgwfjnm564Pap Smear Medical Devices Not on file Insurance
--- OUTSIDE RECORDS SUMMARY | 2025-05-06 00:37 | XMS_ITS | Clinical Summary ---
Author Organization [facility] Address [address] [place] [address] Care Team Providers Care Toll Testboard Worker Name Role Phone Manuel Klein MD Unavailable [phone] Manuel Klein MD Primary Care Provider [phone] Manuel Klein MD Unavailable [phone] Allergies Active AllergyReactionsCriticalityNoted DateCommentsSulfamethoxazoleOther: See Yjikerne45/08/2015 CAUSED ENLARGED LYMPH NODES HursrbuwpxiRkahjkiOoe78/12/2022 Patient states it was a long time ago and she did not have a severe reaction. She does not believe she is allergic, she just thinks she just experienced side effects. CodeineOther: See Qtnuoevq86/08/2015 Make her feel Jittery. OTHERWISE, NO SOB/WHEEZING, and NO DYSPHAGIA, NO URTICARIA, NO ANGIOEDEMA DoxycyclineOther: See XnshmrksIlm13/29/2022 Patient states it was a long time ago and she did not have a severe reaction. She does not believe she is allergic, she just thinks she just experienced side effects. QlmcyIuobDyj75/08/2015 Patient states it was a long time ago and she did not have a severe reaction. She does not believe she is allergic, she just thinks she just experienced side effects. OmeprazoleOther: See Wyxcopcd74/16/2024 Other Reaction(s): Other PantoprazoleOther: See Bptqfmjr98/16/2024Sulfamethoxazole-TrimethoprimSwelling Low03/04/2022 Patient states it was a long time ago and she did not have a severe reaction. She does not believe she is allergic, she just thinks she just experienced side effects. TrimethoprimOther: See ZkabmoqxWiw59/29/2022 Patient states it was a long time [...] mouth three times a day 270 capsule 3Active azaTHIOprine (IMURAN) 50 mg tablet Indications:Other systemic lupus erythematosus with other organ involvement (HCC),Encounter for longterm current use of azathioprineTAKE 3 TABLETS BY MOUTH DAILY WITH FOOD. HOLD IF ON ANTIBIOTICS OR ILL. 270 tablet ctive folic acid 1 mg tablet Indications:Vitamin B12 deficiencyTake 1 tablet by mouth once daily. 90 tablet 4Active hbuquphsknVDSKW-cxdxff-ohnwuobgh (BMX 1:1:1) 1:1:1 liqd Take 5 mL by mouth every 6 hours as needed. 500 mL 5Active TRULICITY 0.75 mg/0.5 mL pen injector Inject 0.75 mg subcutaneously one time a week. Per PCP5Active pantoprazole DR (PROTONIX) 40 mg tablet TAKE 1 TABLET BY MOUTH 1/2 TO 1 HOUR BEFORE MORNING MEAL5Active tacrolimus (PROTOPIC) 0.1 % ointment APPLY TO AFFECTED AREA ON FOREHEAD TWICE A DAY NEEDED FOR FLARES, HOLD IF CLEAR5Active thiamine (VITAMIN B1) 100 mg tablet Take 100 mg by mouth every morning.5Active nystatin (MYCOSTATIN) 100,000 unit/mL suspension TAKE 4 ML BY MOUTH / THROAT 4 TIMES A DAY FOR 7 DAYS5Active LO LOESTRIN FE 1 mg-10 mcg (24)/10 mcg (2) Take 1 tablet by mouth once daily.5Active fluocinonide (LIDEX) 0.05 % external solution 11/29/2024tive clotrimazole (MYCELEX) 10 mg bk USE 1 BK WHILE ON IMMUNOSUPPRESSIVE MEDICINE BY MOUTH/THROAT 3 TIMES A DAY 5Active Clobetasol Propionate 0.05 % sham 11/29/2024tive KLONOPIN 0.5 mg tablet 1 tablet Orally Once a day prn for 30 days F41.9007/31/2024tive Clindamycin Phosphate (CLEOCIN T) 1 % lotion APPLY A THIN LAYER TO AFFECTED AREAS ON THE THIGHS ONCE A DAY5Active HIBICLENS 4 % external liquid 11/29/2024tive tretinoin (RETIN-A) 0.025 % topical cream Apply to face, once daily at evening/night time, 30 day claqmn985Active hydrOXYchloroQUINE (PLAQUENIL) 200 mg tablet Indications:CHRISTIAN positive,Other systemic lupus erythematosus with other organ involvement (HCC)TAKE 1 TAB TWICE A DAY WITH FOOD *SUNSCREEN WHILE OUTDOORS/OPHTHAMOLOGY EVERY 6-12 MONTHS WHILE ON* [address] (CYMBALTA) 30 mg capsule Take 1 capsule by mouth once daily.5Active predniSONE (DELTASONE) 10 mg tablet Indications:Other systemic lupus erythematosus with other organ involvement (HCC)Take 40mg daily x 3, decrease by 5mg every 3days until taking 10mg daily with food thereafter (no oral nsaids) 120 tablet 5Active belimumab (BENLYSTA) 200 mg/mL auto-injector Indications:Other systemic lupus erythematosus with other organ involvement (HCC)Inject 200mg (1 pen) subcutaneously once weekly 12 mL 5Active ergocalciferol 50,000 unit capsule (VITAMIN D2, DRISDOL) Indications:Vitamin D deficiencyTake 1cap by mouth 3times a week x 12weeks, then once a week with food. 40 capsule 5Active belimumab (BENLYSTA) 200 mg/mL auto-injector Indications:Other systemic lupus erythematosus with other organ involvement (HCC)Inject 200mg (1 pen) subcutaneously once weekly 12 mL Discontinued ergocalciferol 50,000 unit capsule (VITAMIN D2, DRISDOL) Indications:Vitamin D deficiencyTake 1cap by mouth 3times a week x 10weeks, then once a week with food. 34 capsule Discontinued DULoxetine (CYMBALTA) 20 mg capsule Take 1 capsule by mouth once daily.Discontinued predniSONE (DELTASONE) 10 mg tablet Indications:Other systemic lupus erythematosus with other organ involvement (HCC)Take 40mg daily x 3, decrease by 5mg every 3days until taking 10mg daily with food thereafter (no oral nsaids) 120 tablet Discontinued Active Problems ProblemNoted DateDiagnosed DateGeneralized articular fhyemvemjuddr70/17/2025Iron deficiency pqoncq2306/16/20240317Abmkbcdlgjsbykafpboqy84/09/2024Frequent infections 04/01/2024History of vitamin D tjwjaoguxy41/14/2024hronic fatigue and malaise 06/10/2023ilateral wrist pain02/04/2023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 02/04/2023Steroid-induced uwfntirgnvjk98/14/2023Long term current use of systemic /14/2023Excessive and frequent menstruation with irregular cycleObesity, Class III, BMI >= 4004Long-term use of high-risk jrdjepitjz68/23/2023NA uwpjlwrl24/23/2023OSA (obstructive sleep apnea)05/20/2022omnolence, azjlxnt5405/20/2022nemia, szekjzvfuii85/19/2022 03/10/2023Megaloblastic anemia due to vitamin B12 birbrsjufs71/12/2022iscoid lupus jtpffoncuxwnb83/24/3574Yglagzkgyykq39/03/2022ystemic lupus erythematosus 10/24/2021Vitamin D kapzjyskkp48/14/2021levated sed rate03/05/2021High total serum IgM03/05/2021econdary osteoarthritis of multiple sites03/05/2021ash and nonspecific skin darrakbh64/13/2021welling of lymph nodes03/05/2021hronic pain of toes of both feet03/05/2021ilateral leg funnwwal70/13/2021Hair loss 03/05/2021Family history of Crohn's gaymmhy9903/05/2021ong-term use of Plaquenil 03/05/2021ilateral evvxlovikcci92/22/2016Vitamin B12 ssagwplluj77/08/2015 Jvecihoqiqgurz42/08/7659Pfcpts73/08/2015Chronic bilateral low back pain with bilateral lgxmeppa00/08/2015Depression, recurrentChronic pain syndromePain, hip ObesityTobacco use disorder Resolved Problems ProblemNoted DateDiagnosed DateResolved DateObesity, Class II, BMI 35-39.9 Obesity (BMI 30-39.9) Encounters DateTypeDepartmentCare SraqMrehfviumbb70/11/2025 2:00 PM [facility] [address] [place] [address] [place] [address] Other systemic lupus erythematosus with other organ involvement (HCC) (Primary Dx)05/01/2025 9:30 AM [facility] Hematology/Oncology [address] [place] [address] [place] [address] Frequent infections (Primary Dx); Hypogammaglobulinemia (HCC); Bilateral leg weakness; Discoid lupus erythematosus; Elevated sed rate; Megaloblastic anemia due to vitamin B12 lmjhbnazak44/07/4459Bxhsiu47/23/2025 Telephone Rheumatology [address] [facility] [place] [address] Sandra Park MD Teryslq8304/11/2025 9:00 AM [facility] [address] [place] [address] [place] [address] Frequent infections (Primary Dx); Elevated LFTs; Anemia of chronic disease; Elevated C-reactive protein (CRP); Elevated sed rate; Vitamin D deficiency; Hypogammaglobulinemia (HCC); Bilateral leg weakness; Discoid lupus erythematosus; Megaloblastic anemia due to vitamin B12 omivxytkcs85/18/2025bstract Neurology [address] [place] [address] [facility] Center Rejected CMN106/09/2024 11:00 AM [facility] [address] [place] [address] Christie Phan MD Type 2 diabetes mellitus with other specified complication, without long-term current use of insulin (HCC) (Primary Dx); Generalized articular hypermobility; Tachycardia; assisted (current) use of systemic steroids; Immunodeficiency (HCC); Class 3 severe obesity with serious comorbidity and body mass index (BMI) of 40.0 to 44.9 in adult,unspecified obesity type (HCC); History of Clostridioides difficile infection; Shortness of breath; Fatty (change of) liver, not elsewhere ilqwxwetgb69/17/2025 Get Medical Advice Rheumatology [address] [place] [address] Sandra Park MD Abzybyio11/17/2025Refill Rheumatology [address] [place] [address] Sandra Park MD Refill Ebuetkq9204/05/2025 2:00 PM [facility] Hematology/Oncology [address] [facility] [place] [address] Other systemic lupus erythematosus with other organ involvement (HCC) (Primary Dx)04/05/2025 Patient Msg Rheumatology [address] [place] [address] Sandra Park MD Appointment Urgyvhy1404/04/2025Orders Only Hematology/Oncology [address] [facility] [place] [address] Jose Cho MD Frequent infections (Primary Dx); Hypogammaglobulinemia (HCC); Bilateral leg weakness; Discoid lupus qoslvxndrtbfu64/12/2025Orders Only Hematology/Oncology [address] [place] [address] Rebekah Rojas, WASTE BALER.TRANSFER WORKER 04/04/2025Orders Only Hematology/Oncology [address] [facility] [place] [address] Fara Lopez APRN.TRANSFER WORKER Frequent infections (Primary Dx); Hypogammaglobulinemia (HCC); Bilateral leg weakness; Discoid lupus enzibiinxxdmk44/04/2025 Patient Msg Integrated Medicine [address] [place] [address] Christie Phan MD Appointment Xojuonp9103/27/2025 Patient [facility] Rheumatology [address] [place] [address] Sandra Park MD Appointment Udeznvq4003/21/2025 9:40 AM [facility] Hematology/Oncology [address] [place] [address] [place] [address] [address] 4 Frequent infections (Primary Dx); Hypogammaglobulinemia (HCC); Bilateral leg weakness; Discoid lupus erythematosus; Elevated sed rate; Megaloblastic anemia due to vitamin B12 suxomnbkjm19/29/2025 9:20 AM EDTVisit (SP) Office Hematology/Oncology [address] [place] [address] [place] [address] Jose Cho MD Hypogammaglobulinemia (HCC) (Primary Dx); Frequent infections; Megaloblastic anemia due to vitamin B12 deficiency; Elevated sed rate; Bilateral leg weakness; Discoid lupus erythematosus; Infection of left breast; Immunodeficiency (HCC); Type 2 diabetes mellitus without complication, without long-term current use of insulin (HCC)03/21/20254545Dweqtc62/28/2025Telephone Hematology/Oncology [address] [place] [address] [place] [address] Jose Cho MD Lab Krkeyv6303/19/20259629Inqbzz73/01/2025 9:30 AM [facility] Hematology/Oncology [address] [place] [address] [place] [address] Frequent infections (Primary Dx); Hypogammaglobulinemia (HCC); Bilateral leg weakness; Discoid lupus fkqldxgfrjhaa67/01/2025 9:00 AM EDTVisit (SP) Office Hematology/Oncology [address] [place] [address] [place] [address] John, Fara, WASTE BALER.TRANSFER WORKER Frequent infections (Primary Dx); Hypogammaglobulinemia (HCC); Bilateral leg weakness; Discoid lupus erythematosus; Vitamin B12 deficiency; Shortness of breath; Other iron deficiency anemia; Malaise and vjawzjm9002/21/2025 Get Medical Advice Hematology/Oncology [address] [place] [address] [place] [address] Provider, Ccf Blood work02/21/2025Telephone Cancer Appts [address] [place] [address] Fara Lopez, MAURILIO.TRANSFER WORKER Ivmvtqy6402/12/2025Telephone Hematology/Oncology [address] [place] [address] [place] [address] Enma Hamm RN Lab Ykcbzk9302/08/2025 2:00 PM EDTInfusion Center Hematology/Oncology [address] [place] [address] [place] [address] Elevated sed rate (Primary Dx); Megaloblastic anemia due to vitamin B12 deficiency; Other systemic lupus erythematosus with other organ involvement (HCC)02/06/2025 Orders Only Hematology/Oncology [address] [place] [address] [place] [address] Jose Cho MD from Last 3 Months Immunizations ImmunizationAdministration DatesNext DueCOVID-19 vaccine, age 12+ yr (imo.im- [facility])02/23/2023 Family History Medical HistoryRelationCommentsCancerFatherstomachCrohn's [Other]MotherRelation StatusCommentsDaughter 1AliveDaughter 2AliveFatherDeceased (Age 57)stomach cancerMotherAlive (Age 55)crohn's diseaseSisterAliveSonAlive Social History Tobacco UseTypesPacks/DayYears UsedDateSmoking Tobacco: Every LavQcbxuefjwy866 Smokeless Tobacco: Never Tobacco Cessation:Ready to Q uit: Not Asked; Counseling Given: Not Answered Alcohol UseStandard Drinks/WeekCommentsNo0 (1 standard drink = 0.6 oz pure alcohol)PHQ-2AnswerDate RecordedPHQ-2 fmzxs804rea Deprivation Index AnswerDate RecordedNational Score (1-100), lower number is lower risk59 09/24/2022State Score (1-10), lower number is lower obxy7453Data from: https://www.neighborhoodatlas.medicine.[facility].edu/. Last address used for ene[address]3CommentsNoSex and Gender InformationValueDate RecordedSex Assigned at BirthNot on fileLegal SexFemale 05/31/2014 2:51 PM ESTGender IdentityNot on fileSexual OrientationNot on file Last Filed Vital Signs Vital SignReadingTime TakenCommentsBlood Fesordok761/8305/03/2025 2:05 PM EST Tfjgp9378/11/2025 2:05 PM PKWNnudxyoynav59.5 ??C (97.7 ??F)05/03/2025 2:05 PM ESTRespiratory Ycjs994207/04/2024 2:05 PM ESTOxygen Ffcdnvvutf85%05/03/2025 2:05 PM ESTInhaled Oxygen Concentration--Hnhyqa676.7 kg (286 lb)04/09/2025 10:04 AM GUGZtlcvc196.2 cm (5' 7 )04/09/2025 10:04 AM ESTBody Mass Index44.7904/09/2025 10:04 AM EST Plan of Treatment DateTypeDepartmentCare Team (Latest Contact Info)Qfazuankcmi00/20/2025 9:[facility] [address] [place] [address] Sandra Park MD [address] [place] [address] follow up per snaxcgqq61/31/2025 9:00 AM ESTInfusion Center Hematology/Oncology [address] [facility] [place] [address] IVIG Q 3 WEEKS06/13/2025 8:45 AM ESTOffice Visit [facility] [address] [facility] [place] [address] 12 week follow up IVIG06/13/2025 9:00 AM ESTVisit (SP) Office Hematology/Oncology [address] [facility] [place] [address] Fara Lopez, MAURILIO.TRANSFER WORKER [address] [facility] [place] [address] 12 week follow up IVIG06/13/2025 9:30 AM [facility] [address] [place] [address] [place] [address] 12 week follow up IVIGHealth MaintenanceDue DateLast DoneCommentsCervical Cancer Lbotvumrx63/14/1992Anxiety Vminolaoh03/14/1999HIV Rljtsjbln86/14/1999 DTaP,Tdap,Td Vaccine (1 - Tdap)10/05/1999Pneumococcal Vaccine (1 of 2 - PCV) 10/05/1999Shingrix Vaccine (1 of 2)10/05/1999HPV Vaccine (1 - Risk 3-dose SCDM series)10/05/2007Mammogram Qgvzojfvy07/14/2021Covid-19 Vaccine (6 - season)51, 02/08/2022, 05/26/2021, Additional history exists Influenza Vaccine (#1)2025Hepatitis C TrdrxuajhRmnxcwfva40/21/2025, 03/05/2021 Procedures Procedure NamePriorityDate/TimeAssociated DiagnosisCommentsVITAMIN D 25 HYDROXY Giqzfvl5404/11/2025 9:28 AM EST Vitamin D deficiency C-REACTIVE PROTEIN (CRP)Lkejyvf3104/11/2025 9:28 AM EST Elevated C-reactive protein (CRP) Elevated sed rate COMPLETE BLOOD TYWRTBphoqku55/19/2025 9:28 AM EST Anemia of chronic disease COMPREHENSIVE METABOLIC HJKJFCelwdmr76/19/2025 9:28 AM EST Elevated LFTs IMMUNOGLOBULINS PXOEpixztm77/29/2025 10:51 AM EDT Vitamin B12 deficiency Hypogammaglobulinemia (HCC) COMPREHENSIVE METABOLIC SJAZCJrjicjo13/29/2025 9:16 AM EDT Vitamin B12 deficiency Hypogammaglobulinemia (HCC) CBC + EYMAXvqwpmf63/29/2025 9:16 AM EDT Vitamin B12 deficiency Hypogammaglobulinemia (HCC) IMMUNOGLOBULINS BPJIttxavs74/01/2025 8:51 AM EDT Hypogammaglobulinemia (HCC) Vitamin B12 deficiency Other iron deficiency anemia FOLATE IIFLNChwbwlw63/01/2025 8:51 AM EDT Hypogammaglobulinemia (HCC) Vitamin B12 deficiency Other iron deficiency anemia VITAMIN B12 NSCVRZumgvwt08/01/2025 8:51 AM EDT Hypogammaglobulinemia (HCC) Vitamin B12 deficiency Other iron deficiency anemia FERRITIN TWRHsdfmsk28/01/2025 8:51 AM EDT Hypogammaglobulinemia (HCC) Vitamin B12 deficiency Other iron deficiency anemia IRON + GUIUPujanxs41/01/2025 8:51 AM EDT Hypogammaglobulinemia (HCC) Vitamin B12 deficiency Other iron deficiency anemia COMPREHENSIVE METABOLIC FGJEXFjekqkv85/01/2025 8:51 AM EDT Hypogammaglobulinemia (HCC) Vitamin B12 deficiency Other iron deficiency anemia CBC + YYBLHssgvhh90/01/2025 8:51 AM EDT Hypogammaglobulinemia (HCC) Vitamin B12 deficiency Other iron deficiency anemia HEPATITIS C ANTIBODY IA WITH YQEOKPMWHMRWTweompn39/21/2025 1:48 PM EDT Elevated LFTs from Last 3 Months or Most Recently Relevant to Health Maintenance Results * (ABNORMAL) VITAMIN D 25 HYDROXY (04/11/2025 9:28 AM EST)ComponentValueRef RangeTest MethodAnalysis TimePerformed AtPathologist SignatureVitamin D 25 Qdzkslz68.0(L)31.0 - 80.0 ng/mL04/12/2025 10:40 AM ESTDAY[facility] MAIN LABSpecimen (Source)Anatomical Location / LateralityCollection Method / Volume Collection TimeReceived TimeBloodBLOOD SPECIMEN / UnknownVenipuncture / Atuiapk4004/11/2025 9:28 AM EST04/11/2025 9:29 AM EST Narrative Authorizing ProviderResult TypeResult StatusSandra Park MDLABORATORYFinal ResultPerforming OrganizationAddressCity/State/ZIP CodePhone Number [facility] [address] [place] [address], * (ABNORMAL) COMPREHENSIVE METABOLIC PANEL (04/11/2025 9:28 AM EST) Only the most recent of3 resultswithin the time period is included. ComponentValueRef RangeTest MethodAnalysis TimePerformed AtPathologist Signature Protein, Total6.86.3 - 8.0 g/dL04/11/2025 9:56 AM ESTNORTHCT[facility] LABAlbumin3.93.9 - 4.9 g/dL04/11/2025 9:56 AM ESTNORTPROM[facility] LABCalcium, Total9.38.5 - 10.2 mg/dL04/11/2025 9:56 AM EST [facility] LABBilirubin, Total0.20.2 - 1.3 mg/dL 04/11/2025 9:56 AM ESTNORTPROM[facility] LABAlkaline Phosphatase 7734 - 123 U/L106/11/2024 9:56 AM ESTNORTPROMED[facility] CGESXI3851 - 35 U/L106/11/2024 9:[address] [facility] JOWXUJ014 - 38 U/L106/11/2024 9:[address] [facility] KYTBnzxpcu189(H)74 - 99 mg/dL04/11/2025 9:[address] [facility]RT[facility] LABComment: The [place] Diabetes Association (ADA) provides guidance for cutoff [...] Standards of Medical Care in Diabetes 2016, [place] [employer]. Diabetes Care. 2016.39(Suppl 1). GZI761 - 21 mg/dL04/11/2025 9:56 AM [facility] LAB Creatinine0.52(L)0.58 - 0.96 mg/dL04/11/2025 9:56 AM [facility] WZOCeglif213905 - 144 mmol/L106/11/2024 9:56 AM [facility] LABPotassium4.23.7 - 5.1 mmol/L106/11/2024 9:56 AM EST [facility] IOXWnsniyrj62638 - 107 mmol/L106/11/2024 9:56 AM [facility] ONFGX846(L)22 - 30 mmol/L106/11/2024 9:56 AM [facility] LABAnion Dsf419 - 15 mmol/L106/11/2024 9:56 AM [facility] LABEstimated Glomerular Filtration Crop153>=60 mL/min/1.73m 04/11/2025 9:56 AM [facility] LABComment:Estimated Glomerular Filtration Rate (eGFR) is [...] VolumeCollection TimeReceived TimeBloodBLOOD SPECIMEN / UnknownVenipuncture / Tbdigyj3504/11/2025 9:28 AM EST04/11/2025 9:29 AM EST Narrative Authorizing ProviderResult TypeResult StatusMarjose a Park MDLABORATORYFinal ResultPerforming OrganizationAddressCity/State/ZIP CodePhone Number [facility] [address] [place] [address] * (ABNORMAL) COMPLETE BLOOD COUNT (04/11/2025 9:28 AM EST)ComponentValueRef RangeTest MethodAnalysis TimePerformed AtPathologist YkqtbewjaLAQ30.89(H)3.70 - 11.00 k/uL04/11/2025 9:40 AM ESTNORTPROMEDICA [facility] LABRBC4.41 3.90 - 5.20 m/uL04/11/2025 9:40 AM [facility] LAB Evxfhkxjsl09.711.5 - 15.5 g/dL04/11/2025 9:40 AM [facility] LMWApqxmbczox91.536.0 - 46.0 %04/11/2025 9:40 AM [facility] EFMFBO45.180.0 - 100.0 fL04/11/2025 9:40 AM EST [facility] LPQQBY93.126.0 - 34.0 pg04/11/2025 9:40 AM [facility] UQKLLCF55.030.5 - 36.0 g/dL04/11/2025 9:40 AM [facility] LABRDW-CV14.411.5 - 15.0 % 04/11/2025 9:40 AM [facility] LABPlatelet Yqdks175 150 - 400 k/uL04/11/2025 9:40 AM [facility] LABMPV 11.59.0 - 12.7 fL04/11/2025 9:40 AM [facility] LAB Absolute nRBC<0.01<0.01 k/uL04/11/2025 9:40 AM [facility] LABSpecimen (Source)Anatomical Location / LateralityCollection Method / VolumeCollection TimeReceived TimeBloodBLOOD SPECIMEN / UnknownVenipuncture / Ttorbcq2304/11/2025 9:28 AM EST04/11/2025 9:29 AM EST Narrative Authorizing ProviderResult TypeResult StatusMarjose a Xavier MDLABORATORYFinal ResultPerforming OrganizationAddressCity/State/ZIP CodePhone Number [facility] [address] [place] [address] * C-REACTIVE PROTEIN (04/11/2025 9:28 AM EST)ComponentValueRef RangeTest Method Analysis TimePerformed AtPathologist SignatureCRP0.4<0.9 mg/dL04/11/2025 7:03 PM ESTTR[facility]HEALTH [facility] LABSpecimen (Source)Anatomical Location / LateralityCollection Method / VolumeCollection TimeReceived TimeBloodBLOOD SPECIMEN / UnknownVenipuncture / Bljeomh0304/11/2025 9:28 AM EST04/11/2025 9:29 AM EST Narrative Authorizing ProviderResult TypeResult StatusAngeliaemmanuel Park MDLABORATORYFinal ResultPerforming OrganizationAddressCity/State/ZIP CodePhone Number [facility] [address] [place] [address], [place] * (ABNORMAL) IMMUNOGLOBULINS,IGG,IGA,IGM (03/21/2025 10:51 AM EDT) Only the most recent of2 resultswithin the time period is included. ComponentValueRef RangeTest MethodAnalysis TimePerformed AtPathologist Signature IbU829(L)700 - 1,600 mg/dL03/21/2025 7:55 PM EDTCTHE [facility] IQWWrE237 70 - 400 mg/dL03/21/2025 7:55 PM EDCH[facility] HNHGsT061(H)40 - 230 mg/dL03/21/2025 7:55 PM EDTCTHE [facility] LABSpecimen (Source)Anatomical Location / LateralityCollection Method / VolumeCollection TimeReceived TimeBlood BLOOD SPECIMEN / UnknownVenipuncture / Vrjpsar1903/21/2025 10:51 AM EDT1 10:51 AM EDT Narrative Authorizing ProviderResult TypeResult StatusRebekah Rojas APRN.CNPLABORATORY Final ResultPerforming OrganizationAddressCity/State/ZIP CodePhone Number [facility] [address] [place] [address], [place] * (ABNORMAL) COMPLETE BLOOD COUNT AND DIFFERENTIAL (03/21/2025 9:16 AM EDT) Only the most recent of2 resultswithin the time period is included. ComponentValueRef RangeTest MethodAnalysis TimePerformed AtPathologist Signature WBC13.02(H)3.70 - 11.00 k/uL03/21/2025 9:20 AM EDTNORTPROMEDICA [facility] LABRBC4.683.90 - 5.20 m/uL03/21/2025 9:20 AM EDTNORTPROMED[facility] XWTUaetbnypbc03.911.5 - 15.5 g/dL03/21/2025 9:20 AM EDTNORTPROMEDICA [facility] CLRPsgmyuhkay69.436.0 - 46.0 %03/21/2025 9:20 AM EDT [facility] QJTMQO63.980.0 - 100.0 fL03/21/2025 9:20 AM EDTNORTPROMEDICA [facility] LMYQOO83.826.0 - 34.0 pg03/21/2025 9:20 AM EDTNORTPROM[facility] [id number] - 36.0 g/dL03/21/2025 9:20 AM [facility] LABRDW-[id number] - 15.0 %03/21/2025 9:20 [facility] LABPlatelet [id number] - 400 k/uL 03/21/2025 9:20 [facility] [id number] - 12.7 fL 03/21/2025 9:20 AM [facility] [facility] LABNeutrophils %74.8% 03/21/2025 9:20 AM [facility] LABAbs Neut9.74(H)1.45 - 7.50 k/uL03/21/2025 9:20 AM [facility] LABLymphocytes %14.9%03/21/2025 9:20 [facility] Lymph1.94 1.00 - 4.00 k/uL03/21/2025 9:20 [facility] Monocytes %7.2%03/21/2025 9:20 AM [facility] LABAbs Mono0.94(H)<0.87 k/uL03/21/2025 9:20 AM [facility] Eosinophils %1.1%03/21/2025 9:20 AM [facility] LABAbs Eosin0.14<0.46 k/uL03/21/2025 9:20 AM [facility] Basophils %0.8%03/21/2025 9:20 AM [facility] LABAbs Baso0.10<0.11 k/uL03/21/2025 9:20 AM [facility] Immature Granulocytes %1.2%03/21/2025 9:20 AM [facility] LABAbs Immature Gran0.16(H)<0.10 k/uL03/21/2025 9:20 AM [facility] LABNRBC0.0/100 WBC03/21/2025 9:20 AM [facility] LABAbsolute nRBC<0.01<0.01 k/uL03/21/2025 9:20 AM EDT [facility] LABDiff KxlfWlhm26/29/2025 9:20 AM EDT [facility] LABSpecimen (Source)Anatomical Location / LateralityCollection Method / VolumeCollection TimeReceived TimeBloodBLOOD SPECIMEN / UnknownVenipuncture / Qzmmctb9403/21/2025 9:16 AM EDT1 9:16 AM EDT Narrative Authorizing ProviderResult TypeResult StatusHolly Bob SIMSNKimberlyCNPLABORATORY Final ResultPerforming OrganizationAddressCity/State/ZIP CodePhone Number [facility] [address] [place] [address] * VITAMIN B12 (02/21/2025 8:51 AM EDT)ComponentValueRef RangeTest MethodAnalysis TimePerformed AtPathologist SignatureVitamin [id number] - 1,245 pg/mL 02/21/2025 10:05 PM [facility]TCC[facility] LABSpecimen (Source) Anatomical Location / LateralityCollection Method / VolumeCollection Time Received TimeBloodBLOOD SPECIMEN / UnknownVenipuncture / Smtalnx3002/21/2025 8:51 AM EDT1 8:51 AM EDT Narrative Authorizing ProviderResult TypeResult StatusJaimee John WASTE BALER.CNPLABORATORYFinal ResultPerforming OrganizationAddressCity/State/ZIP CodePhone Number [facility] [address] [phone], [place] * (ABNORMAL) IRON AND TIBC (02/21/2025 8:51 AM EDT)ComponentValueRef RangeTest MethodAnalysis TimePerformed AtPathologist SirryhishQweb49612 - 186 ug/dL 02/21/2025 9:46 PM EDTCCH[facility] BHNXKAW433(H)232 - 386 ug/dL02/21/2025 9:46 PM EDTCC[facility] LABTransferrin Rpvvjzyrex43.215.0 - 57.0 %02/21/2025 9:46 PM EDTCC[facility] LABSpecimen (Source)Anatomical Location / LateralityCollection Method / Volume Collection TimeReceived TimeBloodBLOOD SPECIMEN / UnknownVenipuncture / Rqlyubt2702/21/2025 8:51 AM EDT1 8:51 AM EDT Narrative Authorizing ProviderResult TypeResult StatusJaimee John WASTE BALER.CNPLABORATORYFinal ResultPerforming OrganizationAddressCity/State/ZIP CodePhone Number [facility] [address] [phone], [place] * FOLATE, SERUM (02/21/2025 8:51 AM EDT)ComponentValueRef RangeTest Method Analysis TimePerformed AtPathologist SignatureFolate>20.0>4.7 ng/mL02/21/2025 10:05 PM [facility] LABComment: A result of > 20 ng/mL is not necessarily indicative of a pathologic or treatable condition: it reflects a limitation of the test methodology. Assay reference range: 4.8 to 24.2 ng/mL. Suitable for detection of folate deficiency. Reference: Folate III (Folate III) [package insert V 1.0 Nepali]. [facility], [place], [place]: March 2015. Specimen (Source)Anatomical Location / LateralityCollection Method / Volume Collection TimeReceived TimeBloodBLOOD SPECIMEN / UnknownVenipuncture / Unknown 02/21/2025 8:51 AM EDT1 8:51 AM EDT Narrative Authorizing ProviderResult TypeResult StatusMarvelimedane Lopez APRN.CNPLABORATORYFinal ResultPerforming OrganizationAddressCity/State/ZIP CodePhone Number [facility] [phone], [place] * FERRITIN (02/21/2025 8:51 AM EDT)ComponentValueRef RangeTest MethodAnalysis TimePerformed AtPathologist FnxhrjgwhLcrynoiq02.614.7 - 205.1 ng/mL02/21/2025 10:05 PM [facility] LABSpecimen (Source)Anatomical Location / LateralityCollection Method / VolumeCollection TimeReceived Time BloodBLOOD SPECIMEN / UnknownVenipuncture / Jrmdeae5202/21/2025 8:51 AM EDT 02/21/2025 8:51 AM EDT Narrative Authorizing ProviderResult TypeResult StatusJaimedane Lopez APRN.CNPLABORATORYFinal ResultPerforming OrganizationAddressty/State/ZIP CodePhone Number [facility] [address] [phone], [place] * HEPATITIS C ANTIBODY IA WITH CONFIRMATION (01/11/2025 1:48 PM EDT)Component ValueRef RangeTest MethodAnalysis TimePerformed AtPathologist SignatureHep C Antibody KLExvigrrpDjfyxrsi13/22/2025 11:34 AM [facility] LABComment:The result suggests no evidence of infection with Hepatitis C virus. Should recent infection be suspected, repeat testing may be considered 4-6 weeks after this draw.Specimen (Source)Anatomical Location / Laterality Collection Method / VolumeCollection TimeReceived TimeBloodBLOOD SPECIMEN / UnknownVenipuncture / Kmqgemv5601/11/2025 1:48 PM EDT01/11/2025 2:06 PM EDT Narrative Authorizing ProviderResult TypeResult StatusSandra Park MDLABORATORYFinal ResultPerforming OrganizationAddressCity/State/ZIP CodePhone Number [facility] [address] [phone], from Last 3 Months or Most Recently Relevant to Health Maintenance Insurance MemberSubscriberPlan / Payer (Effective 2022-Present)Name:Ariadna Paniagua Relation to Subscriber:SelfName:Ariadna Paniagua Payer ID:[id number] (NAIC) Group ID:[id number] Type:Medicaid Address: [place] [id number] Care Teams Team MemberRelationshipSpecialtyStart DateEnd Manuel Klein MD PCP - GeneralFamily Wfinsblp91/7/22 Manuel Klein MD ReferringFamily Medicine02/12/22 Manuel Klein MD [address] [place] [address] ReferringFamily Medicine07/06/24
--- OUTSIDE RECORDS SUMMARY | 2025-05-06 00:37 | XMS_ITS | Clinical Summary ---
Author Organization [facility] Address [address], [address] [place] [address] Care Team Providers Care Dumper Bailer Operator Name Role Phone Gay De La Torre APRN - DUMB WAITER OPERATOR Primary Care Provide r Allergies Active AllergyReactionsCriticalityNoted DateComments Sulfamethoxazole-Qbwmekjsspif41/17/2021 Medications MedicationSigDispense QuantityRefillsLast FilledStart DateEnd DateStatus famotidine [...] times daily07/29/2020ctive Active Problems ProblemNoted DateDiagnosed DateRheumatoid srgahwcer01/05/2022 Social History Tobacco UseTypesPacks/DayYears UsedDateSmoking Tobacco: Every DaySmokeless Tobacco: NeverAlcohol UseStandard Drinks/WeekCommentsNever0 (1 standard drink = 0.6 oz pure alcohol)CommentsUnknownSex and Gender InformationValueDate RecordedSex Assigned at BirthNot on fileLegal KfuZsdaua18/11/2013 11:20 PM EST Gender IdentityNot on fileSexual OrientationNot on file Last Filed Vital Signs Vital SignReadingTime TakenCommentsBlood Hljuozhr300/6501 2:38 PM EST Sqifn974306/03/2021 2:38 PM WCWDjpeftskdbg17 ??C (98.6 ??F)06/03/2021 2:38 PM EST Respiratory Uwqe608110/07/2020 10:45 AM EDTOxygen Qggoyohnom47%10/07/2020 12:45 PM EDTInhaled Oxygen Concentration--Eprsyj842 kg (231 lb 7.2 oz)06/03/2021 2:38 PM PGFSozmwr176.2 cm (5' 7 )10/07/2020 9:01 AM EDTBody Mass Index36.25010/07/2020 9:01 AM EDT Plan of Treatment Not on file Insurance Advance Directives * Full Code (Latest Code Status on File) Date ActivatedDate InactivatedComments10/07/2020 8:32 AM10/08/2020 2:43 AM Care Teams Team MemberRelationshipSpecialtyStart DateEnd Date Gay De La Torre, IT OPERATIONS SPECIALIST - DUMB WAITER OPERATOR [address] [place] [id number] [facility] - General06/03/21
--- OUTSIDE RECORDS SUMMARY | 2025-05-06 00:38 | XMS_ITS | Clinical Summary ---
Author Organization [facility] Healthcare Address [address] [facility] [place] [address] Care Team Providers Care Radio Antenna Installer Name Role Phone Gay Enciso MD Unavailable [phone] Manuel Klein MD Primary Care Provider [phone] Allergies Active AllergyReactionsCriticalityNoted BzpvIuaohlrbXlyhevdoplgSmi54/12/2022 Other Reaction(s): Unknown Patient states it was a long time ago and she did not have a severe reaction. ??She does not believe she is allergic, she just thinks she just experienced side effects. Other Reaction(s): Unknown Reaction Fnrvtxq9605/31/2014 Other Reaction(s): Other: See Comments, Trouble breathing ?... Make her feel ??Jittery. ??OTHERWISE, NO SOB/WHEEZING, and NO DYSPHAGIA, NO URTICARIA, NO ANGIOEDEMA IhiluhfrhecStrqjxu86/17/9367LwxeaFrynDwi62/08/2015 Other Reaction(s): Rash Patient states it was a long time ago and she did not have a severe reaction. ??She does not believe she is allergic, she just thinks she just experienced side effects. AkaudshuncEsgdr22/16/2024 Other Reaction(s): Other Elcsqkyhjkll14/16/2024 Other Reaction(s): Other Tmqmcwcifeztcoho08/17/2023 Other Reaction(s): gi Other Reaction(s): lymph swelling Sulfamethoxazole-ZqepfnqigkiqNemtmlimBwf31/03/2016 Other Reaction(s): Other, sick Patient states it was a long time ago and she did not have a severe reaction. ??She does not believe she is allergic, she just thinks she just experienced side effects. Vletzkxwlfyf04/17/2023 Other Reaction(s): gi Other Reaction(s): lymph swelling Medications MedicationSigDispense QuantityRefillsLast FilledStart DateEnd DateStatus Triamcinolone Acetonide 0.025 % lotion 1 pczpxdvhgiu16/31/2023ctive ibuprofen 200 MG tablet every 8 (eight) [...] the morning.01/15/2023ctive ergocalciferol (Vitamin D2) 1.25 MG (27178 UT) capsule Take 50,000 Units by mouth [...] Take 1 tablet by mouth in the morning.11/17/2024tiveHospital, Clinic, or Other Facility Administered MedicationOrdered DoseRouteFrequencyStart DateEnd Date Status triamcinolone acetonide (Kenalog) injection 2.5 mg Indications:Hidradenitis suppurativa,Pain2.5 mgINTRA-RKFGCWAcxk16/03/2025tive Active Problems ProblemNoted DateDiagnosed DateAbdominal mass03/14/20251212Tttzudle65/22/2025 Husudygfhons00/22/6256Ragdclxrq28/22/2025Fatty liver03/14/2025Leukocytosis 03/14/2025Nontoxic single thyroid crenxg4403/14/2025Type 2 diabetes mellitus 03/14/2025Pilonidal lvywuax3502/28/2025Lupus upxvlwdgdxugy31/14/2024Sacroiliitis 04/06/2024Frequent dpvexvznts44/09/0948Aeocgjsuaobtisntdbepj65/09/2024. difficile akaieuba96/15/6000Slgmitjh58/15/2024uct ectasia of twjhvf4903/07/2024 GERD (gastroesophageal reflux disease)03/07/2024Insulin kadjiyhnhs00/15/2024 Facet arthritis of lumbar bqhquo3412/15/2023Nipple xvddidrbu83/24/2024Irregular periods/menstrual fnarks5711/15/2023egenerative disc disease, xqevyr2011/08/2023 Qhziiwpuvfjp72/17/2024History of vitamin D bofgmrellh15/14/2024rediabetes 08/24/2023ure hypercholesterolemia, zphllapuvjq65/19/4664Mvbtdi04/19/2024 Thyroid shaone6808/10/2023Shortness of ybdrgk4007/13/2023aroxysmal supraventricular oqatmralfrh26/20/2024AC (premature atrial contraction)07/13/2023ervical wvusteouyzaoj40/13/2024Lumbosacral radiculopathy at L507/06/2023hronic lqwyaqaaaovxipztyb62/13/2024urrent ghlvup0207/06/2023 Overview (07/06/2023): Added secondary to documentation in Social History. Tobacco use nlkonwll36/13/2024ytomegalovirus cwmfrabgw11/13/2024isturbance of skin wmzivaimq42/13/2024Enthesopathy of hip dqsrzx6207/06/2023LPRD (laryngopharyngeal reflux disease)07/06/20233772Stmtqjf12/13/2024Oral lesion 07/06/2023ain, hip07/06/2023hronic fatigue and awggtnr4506/10/2023nxiety 06/09/2023epression, bufizbrpy77/17/2024Essential ahqrehhkiurc64/17/2024 Autoimmune euxyxnt4506/01/20235174Sizidtbdtihy65/09/2024utonomic dysfunction 06/01/20231342Grfcidqxu07/09/6004Qxpsmxkofgz12/09/2024Nonintractable episodic dprenurf72/09/2024ilateral wrist pain02/04/2023Long term current use of systemic dhykydmc35/14/2023Steroid-induced reggfftzeaps37/14/2023Raynaud's disease without pzkopxsv21/14/2023Excessive and frequent menstruation with irregular cycle09/24/2022Obesity, Class III, BMI 40-49.9 (morbid obesity) 09/07/2022NA uctaijeu40/23/2023Long-term use of high-risk jghqygzwii17/23/2023 Obstructive sleep apnea helgyztz90/28/2022omnolence, qrnrklb9705/20/2022nemia, dqyuzxvuctu15/19/2022Megaloblastic anemia due to vitamin B12 deficiency 03/04/2022iscoid lupus uygpsuixkkaga52/24/2022Vitamin D zeyqvmhhbg57/14/2021 Bilateral leg irefwmeo97/13/2021hronic pain of toes of both feet03/05/2021 Elevated sed rate03/05/2021High total serum IgM03/05/2021Family history of Crohn's egqxxdb2803/05/2021Hair loss03/05/2021ong-term use of Ohcgfmpac16/13/2021 Rash and nonspecific skin yvgioczj71/13/2021econdary osteoarthritis of multiple sites03/05/2021welling of lymph nodes03/05/20216782Cdkqns02/08/2015Hyperlipidemia 05/31/2014Vitamin B12 brjchpqkys77/08/2015 Encounters DateTypeDepartmentCare UrwbXxbwdaxgnhq34/17/2025 9:30 AM ESTOffice Visit [facility] [address] [facility] [address] [place] [address] Terence Blum MD Pilonidal abscess (Primary Dx)04/09/20253727Delnkv58/13/2025 9:20 AM ESTOffice Visit [facility] [address] [place] [address] Oly Plascencia PA Discharge from left nipple; Discharge from right utytjd7504/05/2025linisync Result Encounter [facility] External Department Unsolicited Oly Plascencia PA 04/05/2025amboo flowsheet [facility] [address] [place] [address] Oly Plascencia PA 03/23/2025 9:45 AM EDTOffice Visit [facility] [address] [facility] [address] [place] [address] Terence Blum MD Pilonidal abscess (Primary Dx)03/23/20254258Ybbjek51/30/2025linisync Result Encounter [facility] External Department Unsolicited Mary Grace Barfield MD 03/14/2025bstract [facility] [address] [address] Luan Valdivia, DO 03/13/2025Telephone [facility] [address] [facility] [address] [place] [address] Elizabeth Lockhart MA Final path came back from [facility]03/09/2025bstract [facility] [address] [address] Luan Valdivia, 03/07/2025Orders Only [facility] [address] [facility] [address] [place] [address] Terence Blum MD 03/06/20256857Adaiij94/13/2025Telephone [facility] [address] [place] [address] Elizabeth Lockhart MA Questions on medications.03/02/2025External Result Encounter [facility] External Department Unsolicited Terence Blum MD 02/28/2025 9:30 AM EDTConsult [facility] [address] [place] [address] Terence Blum MD Pilonidal abscess (Primary Dx); Pilonidal cyst02/28/20256590Ygvxxi54/11/20242869Iinxqy47/06/1680Jlexdu87/07/2024Travel 02/19/20251794Tjfhpk03/24/2025 3:20 PM EDTOffice Visit [facility] [place] [facility] [address] [place] [phone] Cynthia English MD Pilonidal cyst (Primary Dx); Hidradenitis rmxzuuhklvq36/24/2025amboo flowsheet [facility] [address] [place] [address] Cynthia English MD 02/14/2025Travelfrom Last 3 Months Family History Medical HistoryRelationNameCommentslung issueChild1 son with lung issue, 3 daughtersNo Known ProblemsDaughter 1CancerFatherWilliamPancreatitisFatherWilliam Stomach cancerFatherWilliamDiabetesMaternal GrandmotherClelauraHeart failure Maternal GrandmotherClelauraRheum arthritisMaternal GrandmotherClelauraCrohn's diseaseMotherSallyThyroid diseaseMotherSallyNo Known AdbecxpiXhvzny9Zfgy disease SonRelationNameStatusCommentsChildAliveDaughter 1Wmrhy9 daughtersDaughter 2Alive Daughter 3AliveFatherWilliamDeceasedMaternal GrandmotherClelauraMotherSallyAlive Mother's SisterDeceasedSisterAlive1 sisterSonAlive1 son Social History Tobacco UseTypesPacks/DayYears UsedDateSmoking Tobacco: Every HsdIgooeuuivq929 Started: 05/24/1995Smokeless Tobacco: Never Tobacco Cessation:Ready to Q uit: Yes; Counseling Given: Yes Comments:Current smoker, everyday, 11-20 cigarettes/day Alcohol UseStandard Drinks/WeekCommentsNever0 (1 standard drink = 0.6 oz pure alcohol)Caffeine intake : > 4 cups per dayCommentsNoSex and Gender InformationValueDate RecordedSex Assigned at BirthNot on fileLegal SexFemale 08/05/2022 7:18 PM EDTGender IdentityNot on fileSexual OrientationNot on file Last Filed Vital Signs Vital SignReadingTime TakenCommentsBlood Xiajlaek614/7810 9:25 AM EDT Alfkw41745 3:04 PM TOGVqjymshesjd01.1 ??C (98.7 ??F)04/02/2024 1:27 PM ESTRespiratory Uvon515508/24/2023 8:22 AM EDTOxygen Uxonzjgcjz33%04/02/2024 1:27 PM ESTInhaled Oxygen Concentration--Hkqjdb234 kg (291 lb)03/23/2025 10:09 AM EDT Bcnrlb731.2 cm (5' 7 )03/23/2025 10:09 AM EDTBody Mass Index45.5803/23/2025 10:09 AM EDT Plan of Treatment DateTypeDepartmentCare Team (Latest Contact Info)Fxqbzvjmach92/29/2026 8:00 AM ESTOffice Visit [facility] [address] [facility] [address] [place] [address] Kade Richardson MD [address] [facility] [address] [id number] 07/25/2025 11:00 AM ESTOffice Visit [facility] [address] [facility] [address] [place] [address] Cynthia English MD [address] [facility] [address] [place] [address] Health MaintenanceDue DateLast DoneCommentsCOVID-19 Vaccine ( season) , 05/26/2021, 10/19/2020, Additional history existsInfluenza Vaccine (#1)01/22/20252935Kjocstpuh414Pap Smear06/06/2027 06/06/2024, 09/10/2022ervical Cancer Djefmtjnq94/20/2028HPV/Bobxli3109/11/2027 Pneumococcal Vaccine: Pediatrics (0 to 5 Years) and At-Risk Patients (6 to 64 Years)Aged OutNo longer eligible based on patient's age to complete this topic Procedures Procedure NamePriorityDate/TimeAssociated DiagnosisCommentsANAEROBIC CULTURE Bvrazvh3004/05/2025 10:00 AM EST AEROBIC SYRWXEFBjkjwgj78/13/2025 10:00 AM EST US FDTBHQZ4003/22/2025 11:38 AM EDT AEROBIC ELPIDIO CHARGE (NMIC56)Wcgwzal3903/02/2025 5:17 PM EDT ANAEROBIC BRTTHXYMcmublm27/10/2025 5:17 PM EDT AEROBIC CNDJCYULjoyjyt79/10/2025 5:17 PM EDT GRAM KUAUBGqnfgas52/10/2025 5:17 PM EDT GENERAL HKKREVPDTEfmliug02/10/2025 11:32 AM EDTPAP JJUXFUpqktni37/14/2025 12:00 AM ESTMM TOMOSYNTHESIS DIAGNOSTIC BI04/07/2024 8:40 AM EST from Last 3 Months or Most Recently Relevant to Health Maintenance Results * ANAEROBIC CULTURE (04/05/2025 10:00 AM EST)ComponentValueRef RangeTest Method Analysis TimePerformed AtPathologist SignatureANAEROBIC CULTURE ??Anaerobic Culture TBHANAEROBIC CULTURENo anaerobic growth in 72 hours.TBHSpecimen (Source) Anatomical Location / LateralityCollection Method / VolumeCollection Time Received Time04/05/2025 10:00 AM EST04/05/2025 7:50 PM EST Narrative CLINISYNC - 04/12/2025 5:08 PM EST Authorizing ProviderResult TypeResult StatusAmy Austin PALAB BLOOD ORDERABLES Final ResultPerforming OrganizationAddressCity/State/ZIP CodePhone Number [facility] * AEROBIC CULTURE (04/05/2025 10:00 AM EST)ComponentValueRef RangeTest Method Analysis TimePerformed AtPathologist SignatureAEROBIC CULTURE ??Aerobic Culture TBHAEROBIC CULTUREMixed skin floraTBHAEROBIC CULTUREPerformed at: [facility]HAER[facility] [id number] [place], [place] [id number] CULTURE Returned Case Inspector: Doyle Mendenhall PhD, Phone: [phone] (Source) Anatomical Location / LateralityCollection Method / VolumeCollection Time Received Time04/05/2025 10:00 AM EST04/05/2025 7:50 PM EST Narrative CLINISYNC - 04/12/2025 5:08 PM EST Authorizing ProviderResult TypeResult StatusAmy Austin PALAB BLOOD ORDERABLES Final ResultPerforming OrganizationAddressCity/State/ZIP CodePhone Number [facility] * US thyroid (03/22/2025 11:38 AM EDT)Anatomical RegionLateralityModalityHead, NeckUltrasoundSpecimen (Source)Anatomical Location / LateralityCollection Method / VolumeCollection TimeReceived Time03/22/2025 11:38 AM EDT Narrative 03/22/2025 11:41 AM EDT [facility] ?[address] ? [place] [address] ? Ultrasound Report ? Signed ? Patient: TERAJONES B ?MR#: [id number] ?? : 1980 ?Acct:[id number] ?? Age/Sex: 44 / F ?ADM Date: 03/22/25 ?? Loc: US ? Attending Dr: Mary Grace Barfield M.D. ? Ordering Physician: Mary Grace Barfield M.D. ?? Date of Service: 03/22/25 ?? Procedure(s): US thyroid ?? Accession Number(s): [id number] ? cc: GAY ENCISO ; Mary Grace Barfield M.D. ? [facility] ? [address] ? [place] [address] ? Patient Name: ?? JONES PANIAGUA ? MRN: [facility]:[id number] ? date: 1980 ?Sex: F ?? Assigned Patient Location: ?? Current Patient Location: [facility] ?? Accession/Order Number: [id number] ?? Exam Date: 03/22/2025 ??09:30 ?Report Date: [...] M.D. ??03/22/2025 11:38 AM ? Dictation Location: [facility] ? Electronically authenticated by: [id number] ??Y ?? Date: 03/22/2025 ??11:38 ? Dictated By: ?Simin Nelson M.D. ? Signed By: ?03/22/25 1141 ? DD/ 1138 ? TD/TT: ? E Business Manager: Procedure Note Radiology, Radiologist, MD - 03/22/[address] [address] Ultrasound Report Signed Patient: JONES PANIAGUA BMR#: [id number] : 1980Acct:[id number] Age/Sex: 44 / FADM Date: 03/22/25 Loc: US Attending Dr: Mary Grace Barfield M.D. Ordering Physician: Mary Grace Barfield M.D. Date of Service: 03/22/25 Procedure(s): US thyroid Accession Number(s): [id number] cc: GAY ENCISO ; Mary Grace Barfield M.D. [place] [address] Patient Name: JONES PANIAGUA MRN: [facility]:[id number] date: 1980 Sex: F Assigned Patient Location: Current Patient Location: [facility] Accession/Order Number: [id number] Exam Date: 03/22/2025 09:30 Report Date: 03/22/2025 [...] Nelson M.D. 03/22/2025 11:38 AM Dictation Location: [place] [address] Electronically authenticated by: [id number] Y Date: 1:38 Dictated By: Simin Nelson M.D. Signed By:03/22/25 1141 DD/ 1138 TD/TT: E Business Manager: Authorizing ProviderResult TypeResult StatusHilaeleazar Barfield MDIMAdrienne US PROCEDURES Final Result * (ABNORMAL) AEROBIC ELPIDIO CHARGE (NMIC56) (03/02/2025 5:17 PM EDT)ComponentValue Ref RangeTest MethodAnalysis TimePerformed AtPathologist SignatureAMIKACIN<16 (S)03/04/2025 9:13 AM [facility] CtrAZTREONAM<4(I) 03/04/2025 9:13 AM [facility] CtrCEFEPIME<2(S)03/04/2025 9:13 AM [facility] CtrCEFTAZIDIME<1(I)03/04/2025 9:13 AM [facility] CtrCEFTAZIDIME/AVIBACTAM<4(S)03/04/2025 9:13 AM [facility] CtrCEFTOLOZANE/TAZOBACTAM<2(S)03/04/2025 9:13 AM [facility] CtrCEFTRIAXONE<1(I)03/04/2025 9:13 AM [facility] CtrCIPROFLOXACIN>2(R)03/04/2025 9:13 AM [facility] CtrERTAPENEM<0.5(S)03/04/2025 9:13 AM [facility] CtrGENTAMICIN<2(S)03/04/2025 9:13 AM [facility] CtrLEVOFLOXACIN<0.5(S)03/04/2025 9:13 AM [facility] CtrMEROPENEM<1(S)03/04/2025 9:13 AM [facility] MEROPENEM/VABORBACTAM<2(S)03/04/2025 9:13 AM [facility] PIPERACILLIN/TAZOBACTAM<8(I)03/04/2025 9:13 AM [facility] CtrTETRACYCLINE>8(R)03/04/2025 9:13 AM [facility] TIGECYCLINE<2(S)03/04/2025 9:13 AM [facility] CtrTOBRAMYCIN <2(S)03/04/2025 9:13 AM [facility] TRIMETHOPRIM/SULFAMETHOXAZOLE<0.5/9.5(S)03/04/2025 9:13 AM [facility] CtrSpecimen (Source)Anatomical Location / Laterality Collection Method / VolumeCollection TimeReceived TimeOtherSpecimen from uterine cervix / Ymsnwqn9403/02/2025 5:17 PM EDT1 5:38 PM EDTComment: Abscess Narrative Authorizing ProviderResult TypeResult StatusTerence Pacheco MDFIRELANDSFinal ResultPerforming OrganizationAddressCity/State/ZIP CodePhone Number [facility] [address] [place] [address], [facility] [address] [place] [address] * ANAEROBIC CULTURE (03/02/2025 5:17 PM EDT)ComponentValueRef RangeTest Method Analysis TimePerformed AtPathologist SignatureFRMC ORGANISMPrevotella species 03/13/2025 12:54 PM [facility] CtrCOMMENTS.03/13/2025 12:54 PM [facility] CtrQUANTITY OF GROWTHLight Zahind2503/13/2025 12:54 PM [facility] CtrSEND TEST TO REF. LABSent to [facility] for [facility]STIAN ID03/13/2025 12:54 PM [facility] CtrComment: Identification performed at: ??CB - [facility] [address] ??[id number] Returned Case Inspector: Doyle Mendenhall PhD, Phone: ??[phone] Please contact Microbiology within 7 days if anaerobic susceptibilities are needed. Specimen (Source)Anatomical Location / LateralityCollection Method / Volume Collection TimeReceived TimeOtherSpecimen from uterine cervix / Unknown 03/02/2025 5:17 PM EDT1 5:38 PM EDTComment:Abscess Narrative [facility] - 03/13/2025 12:54 PM EDT Comment pilonidal abscess culture Authorizing ProviderResult TypeResult Lisa Pacheco MDLAB BLOOD ORDERABLESFinal ResultPerforming OrganizationAddressCity/State/ZIP CodePhone Number [facility] [address] [place] [address], [facility] [address] [place] [address] * AEROBIC CULTURE (03/02/2025 5:17 PM EDT)ComponentValueRef RangeTest Method Analysis TimePerformed AtPathologist SignatureFRMC ORGANISMSerratia marcescens 03/04/2025 9:13 AM [facility] CtrQUANTITY OF GROWTHLight Aazpga5103/04/2025 9:13 AM [facility] CtrSpecimen (Source) Anatomical Location / LateralityCollection Method / VolumeCollection Time Received TimeOtherSpecimen from uterine cervix / Qbsuykr6503/02/2025 5:17 PM EDT 03/02/2025 5:38 PM EDTComment:Abscess Narrative [facility] - 03/13/2025 12:54 PM EDT Comment pilonidal abscess culture Authorizing ProviderResult TypeResult StatusMARGOT Salcedo BLOOD ORDERABLESFinal ResultPerforming OrganizationAddressCity/State/[facility] CodePhone Number [facility] [address] [place] [address], [facility] [address] [place] [address] * (ABNORMAL) Gram stain (03/02/2025 5:17 PM EDT)ComponentValueRef RangeTest MethodAnalysis TimePerformed AtPathologist SignatureGRAM STAIN1+ Gram Positive Cocci(A)03/03/2025 2:17 PM [facility] CtrGRAM STAIN2+ White Blood Cells(A)03/03/2025 2:17 PM [facility] CtrSpecimen (Source)Anatomical Location / LateralityCollection Method / VolumeCollection TimeReceived TimeOtherSpecimen from uterine cervix / Edrqbsu4603/02/2025 5:17 PM EDT1 5:38 PM EDTComment:Abscess Narrative [facility] - 03/13/2025 12:54 PM EDT Comment pilonidal abscess culture Authorizing ProviderResult TypeResult MARGOT Celaya MICROBIOLOGY - GENERAL ORDERABLESFinal ResultPerforming OrganizationAddressCity/State/ZIP CodePhone Number [facility] [address] [place] [address], [facility] [address] [place] [address] * GENERAL PATHOLOGY (03/02/2025 11:32 AM EDT) Narrative Authorizing ProviderResult TypeResult StatusAlbert Blum Tara, MDCLINISYNCFinal Result * Pap Smear (06/06/2024 12:00 AM EST)Specimen (Source)Anatomical Location / LateralityCollection Method / VolumeCollection TimeReceived TimeSwabCervical swab / Unknown Narrative Authorizing ProviderResult TypeResult StatusAmy Austin PALAB CYTOLOGY ORDERABLES Final ResultPerforming OrganizationAddressCity/State/ZIP CodePhone Number EXTERNAL LAB * MM TOMOSYNTHESIS DIAGNOSTIC BI (04/07/2024 8:40 AM EST)Anatomical Region LateralityModalityOtherSpecimen (Source)Anatomical Location / Laterality Collection Method / VolumeCollection TimeReceived Time04/07/2024 8:40 AM EST Narrative 04/07/2024 8:41 AM EST [facility] ?[address] ? [place] [address] ? Mammography Report ? Signed ? Patient: JONES PANIAGUA ?MR#: [id number] ?? : 1980 ?Acct:[id number] ?? Age/Sex: 43 / F ?ADM Date: 04/06/24 ?? Loc: US ? Attending Dr: Luan Valdivia D.O. ? Ordering Physician: Luan Valdivia D.O. ?Results: ? Date of Service: 14/24 ?Follow Up: ? Procedure(s): MM tomosynthesis diagnostic BI ?? Accession Number(s): [id number] ? cc: FERNIE,GAY ; Luan Valdivia D.O. ? Patient Name: ? JONES PANIAGUA ? MR#: [id number] ? : 1980 ? Exam Date: 04/06/2024 [...] ?? age 56. ? LOCATION: ? [facility] ? BREAST COMPOSITION: ? There are [...] 0841 ? DD/ 0840 ? TD/TT: ? E Business Manager: Procedure Note Radiology, Radiologist, MD - 04/07/2024 [place] [address] Mammography Report Signed Patient: JONES PANIAGUA BMR#: [id number] : 1980Acct:[id number] Age/Sex: 43 / FADM Date: 04/06/24 Loc: US Attending Dr: Luan Valdivia D.O. Ordering Physician: Luan Valdivia D.O.Results: Date of Service: 04/06/24Follow Up: Procedure(s): MM tomosynthesis diagnostic BI Accession Number(s): [id number] cc: GAY ENCISO ; Luan Valdivia D.O. Patient Name: JONES PANIAGUA MR#: [id number] : 1980 Exam Date: 04/06/2024 Ordering Doctor: DR Luan Valdivia . RADIOLOGY REPORT PROCEDURE: MM TOMOSYNTHESIS DIAGNOSTIC BI, 04/06/2024, 15:20 BREAST BI LIMITED, 04/06/2024, 15:37 COMPARISON: MM TOMOSYNTHESIS SCREENING BI, 09/23/2023. MG MAMM ULNMHE2G MARK CAD, 09/01/2022. MG MAMM SCREEN 3D [...] stomach cancer at age 56. LOCATION: [facility] BREAST COMPOSITION: There are scattered [...] Vito Yusuf M.D. Signed By:04/07/2441 DD/ TD/TT: E Business Manager: Authorizing ProviderResult TypeResult StatusCorey Skip DOCLINISYNC IMAGINGFinal Result from Last 3 Months or Most Recently Relevant to Health Maintenance Insurance Care Teams Team MemberRelationshipSpecialtyStart DateEnd Manuel Klein MD [address] [place] [phone] PCP - GeneralFamily Awkwozol47/17/25 Gay Enciso MD [address] [place] [id number] Referring PhysicianFamily Medicine07/18/24
--- OUTSIDE RECORDS SUMMARY | 2025-05-06 00:38 | XMS_ITS | Encounter Summary ---
Author Organization [facility] Address [address] [place] [id number] Care Team Providers Care President And Chief Executive Officer Name Role Phone Manuel Klein MD Unavailable [phone] Manuel Klein MD Primary Care Provider +-4 Manuel Klein MD Unavailable Source Comments In the event this information is protected by the Federal Confidentiality of Alcohol and Drug AbusePatient Records regulations: The Federal rules restrict any use of the information to criminally investigate or prosecute any alcohol or drug abuse patient.[facility] Reason for Visit * ReasonCommentsRefill Request Encounter Details DateTypeDepartmentCare Team (Latest Contact Info)Fpegkrfmfwy13/04/2024Refill Rheumatology [address] [place] [address] Sandra Park MD [address] [place] [address] Refill Request Social History Tobacco UseTypesPacks/DayYears UsedDateSmoking Tobacco: Every LurDqpozbhihk009 Smokeless Tobacco: NeverAlcohol UseStandard Drinks/WeekCommentsNo0 (1 standard drink = 0.6 oz pure alcohol)PHQ-2AnswerDate RecordedPHQ-2 [id number] Deprivation IndexAnswerDate RecordedNational Score (1-100), lower number is lower gmvq951109/24/2022State Score (1-10), lower number is lower lbov058 Data from: https://www.neighborhoodatlas.medicine.[facility]/. Last address used for gix[address]CommentsNoSex and Gender InformationValueDate RecordedSex Assigned at BirthNot on fileLegal SexFemale 05/31/2014 2:51 PM ESTGender IdentityNot on fileSexual OrientationNot on file documented as of this encounter Functional Status * Are you deaf or do you have serious difficulty hearing?AnswerDate of HtkaskrwsqLkymuvWn39/04/2015 11:14 AM Chichi Stevens Ma * Are you blind or do you have serious difficulty seeing, even when wearing glasses?AnswerDate of KpgdihzmxdEmjabnHm71/04/2015 11:14 AM Chichi Stevens Ma * Do you have serious difficulty walking or climbing stairs?AnswerDate of CnzpazdnnyPblqrmUqs69/04/2015 11:14 AM Chichi Stevens Ma * Do you have difficulty dressing or bathing?AnswerDate of AssessmentAuthorYes 12/25/2014 11:14 AM Chichi Stevens Ma * Because of a physical, mental, or emotional condition, do you have difficulty doing errands alone such as visiting a doctor's office or shopping?AnswerDate of PigntrjecvCogzagQr70/04/2015 11:14 AM Chichi Stevens Ma documented as of this encounter Mental Status * Because of a physical, mental, or emotional condition, do you have serious difficulty concentrating, remembering, or making decisions?AnswerEntry Date YtjptkXr25/04/2015 11:14 AM Chichi Stevens Ma documented in this encounter Plan of Treatment DateTypeDepartmentCare Team (Latest Contact Info)Rvxftogeyxp59/20/2025 9:00 AM [facility] Rheumatology [address] [place] [address] Sandra Park MD [address] [place] [address] follow up per enkgbtqy24/31/2025 9:00 AM [facility] Hematology/Oncology [address] [place] [address] IVIG Q 3 WEEKS06/13/2025 8:45 AM ESTOffice Visit [facility] [address] [place] [place] [address] 12 week follow up IVIG06/13/2025 9:00 AM ESTVisit (SP) Office Hematology/Oncology [address] [place] [place] [address] Fara Lopez APRN.[employer] [address] [place] [address] 12 week follow up IVIG06/13/2025 9:30 AM [facility] Hematology/Oncology [address] [place] [address] 12 week follow up IVIGdocumented as of this encounter Visit Diagnoses Diagnosis Other systemic lupus erythematosus with other organ involvement (HCC) documented in this encounter Care Teams Team MemberRelationshipSpecialtyStart DateEnd Date Manuel Klein MD PCP - GeneralFamily Gpkbfgdj75/7/22 Manuel Klein MD ReferringFamily Medicine02/12/22 Manuel Klein MD [address] [place] [address] ReferringFamily Medicine07/06/24documented as of this encounter
--- OUTSIDE RECORDS SUMMARY | 2025-05-06 00:38 | XMS_ITS | Patient Health Record ---
Author Organization The [facility] in [place] Address [address] [place] [address] Care Team Providers Care Clinical Training Specialist Name Role Phone BrittGay ordaz Primary Care Provider [phone] V[address] Klein [phone] Allergies Allergen (clinical drug ingredient) Drug/Non Drug Allergy documented on EMR Reaction Allergy Type Onset Date Status sulfamethoxazole / trimethoprim Bactrim GI upset Drug Allergy ActivecodeineCodeinejitteryDrug AllergyActiveLatexLatexrashAllergyActive Substance with sulfonamide structure and antibacterial mechanism of action (substance)Sulfa AntibioticsswellingDrug AllergyActiveclindamycinClindamycin unknownDrug AllergyActivetrimethoprimTrimethoprimunknownDrug AllergyActive Results Component Value Reference Range Notes LACTATE or LACTIC ACID Reviewed date:02/27/2025 08:35:01 AM Interpretation: Performing Lab: Notes/Report: [facility] , Lactate/Lactic Acid 3.2 0.4-2.0 mmol/L RESULT S CALLED TO MONICA MORA LPN at 1655 Performing Lab: see note ML - [facility] LBIGP,Aptima HPV,Age Gdln Reviewed date:06/12/2024 03:56:26 PM Interpretation: Performing Lab: Notes/Report: BRUSH-SPATULA CERVIX ENDOCERVIX [facility] ,Age Gdln ACOG TestingNote. TESTS RESULT FLAG UNITS REF RANGE LAB Clinician Provided Cytology Information Source.............Cervix;Endocervix No. of containers..01 ThinPrep Vial Age Hannah Perry... 30 FLAG LEGEND: L-Low Normal,H-High Normal,LL-Alert Low,HH-Alert High <-Panic Low,>-Panic High,A-Abnormal,AA-Critical Abnormal Performed at: 01 =[address] [facility] [address] Aparna Solorzano MD, IGP, Aptima HPV, rfx 16/18,45Note. TESTS RESULT FLAG UNITS REF RANGE LAB DIAGNOSIS: 02 NEGATIVE FOR INTRAEPITHELIAL LESION OR MALIGNANCY. Specimen adequacy: 02 Satisfactory for evaluation. Endocervical and/or squamous metaplastic cells (endocervical component) are present. Performed by: 02 Kenzie Kam, Literature Teacher ([facility]) . 02 Note: Note 02 The [...] <-Panic Low,>-Panic High,A-Abnormal,AA-Critical Abnormal Performed at: [address] [address] Aparna Solorzano MD, HPV AptimaNegativeNegative This nucleic acid amplification test detects fourteen high- risk HPV types (16,18,31,33,35,39,45,51,52,56,58,59,66,68) without differentiation. Performed at: =[address] [id number] Diamond Die Maker: Aparna Solorzano MD, Phone: [phone] Performed at: [address] [id number] Diamond Die Maker: Aparna Solorzano MD, Phone: [phone] [facility]FF Reviewed date:08/08/2024 08:30:17 AM Interpretation: Performing Lab: Notes/Report: [facility] ,White Blood Count12.04.0-11.0 10 3/uLRed Blood Count4.274.20-5.40 10 6/uL Ylebsvagho07.712.0-16.0 g/sDBcwyzmjxbv20.836.0-48.0 %Mean Corpuscular Gavefm27.2 81.0-99.0 fLMean Corpuscular Llenuznmfg43.726.7-34.0 pgMean Corpuscular HGB Conc 31.929.9-35.2 g/dLRed Cell Distribution Width15.711.0-15.0 %Platelet Lfwrf999 150-450 10 3/uLMean Platelet Qonrwy66.59.5-13.5 fLNeutrophils Percent Auto65.1 43.0-75.0 %Lymphocytes Percent Auto25.920.5-60.0 %Monocytes Percent Auto6.41.7- 12.0 %Eosinophils Percent Auto1.00.9-7.0 %Basophils Percent Auto0.40.2-2.0 % Immature Granulocytes Pct Auto1.20.0-0.5 %Neutrophils Absolute Auto7.81.4-6.5 10 3/uLLymphocytes Absolute Auto3.11.2-3.8 10 3/uLMonocytes Absolute Auto0.80.3-0.8 10 3/uLEosinophils Absolute Auto0.10.0-0.7 10 3/uLBasophils Absolute Auto0.10.0- 0.1 10 3/uLImmature Granulocytes Abs Auto0.140.00-0.03 10 3/uLPerforming Lab:see noteML - [facility] LBUS breast LT limited Reviewed date:07/14/2024 03:37:19 PM Interpretation: Performing Lab: Notes/Report: Source Facility: [facility]-[address] [place] [address] Ultrasound Report Signed Patient: JONES PANIAGUA MR#: [id number] : 1980 Acct:[id number] Age/Sex: 43 / F ADM Date: 06/14/24 Loc: MAMMO Attending Dr: Oly Plascencia Ordering Physician: Oly Plascencia Date of Service: 06/14/24 Procedure(s): US breast LT limited Accession Number(s): [id number] cc: Oly Plascencia; GAY ENCISO Patient Name: JONES PANIAGUA MR#: [id number] : 1980 Exam Date: 06/14/2024 Ordering Doctor: [...] Signed By: 06/14/24 1505 DD/ 1504 TD/TT: Blister Packing Machine Tender:MM tomosynthesis diagnostic BI Reviewed date:07/14/2024 03:37:52 PM Interpretation: Performing Lab: Notes/Report: Source Facility: [place] [address] Mammography Report Signed Patient: JONES PANIAGUA MR#: [id number] : 1980 Acct:[id number] Age/Sex: 43 / F ADM Date: 06/14/24 Loc: MAMMO Attending Dr: Oly Plascencia Ordering Physician: Oly Plascencia Results: Date of Service: 06/14/24 Follow Up: Procedure(s): MM tomosynthesis diagnostic LT Accession Number(s): [id number] cc: Oly Plascencia; GAY ENCISO Patient Name: JONES PANIAGUA MR#: [id number] : 1980 Exam Date: 06/14/2024 Ordering Doctor: [...] LOCATION: [facility] BREAST COMPOSITION: There are scattered areas of [...] Signed By: 06/14/24 1615 DD/ 1614 TD/TT: Blister Packing Machine Tender:CBC AUTO DIFF Reviewed date:05/15/2024 01:58:59 PM Interpretation: Performing Lab: Notes/Report: [facility] ,White Blood Count12.64.0-11.0 10 3/uLRed Blood Count4.444.20-5.40 10 6/uL Xgvpvuvdck61.412.0-16.0 g/cFQkbmpaqltl64.736.0-48.0 %Mean Corpuscular Nibzyf22.2 81.0-99.0 fLMean Corpuscular Gypmotbonw99.226.7-34.0 pgMean Corpuscular HGB Conc 31.429.9-35.2 g/dLRed Cell Distribution Width14.211.0-15.0 %Platelet Layol578 150-450 10 3/uLMean Platelet Volume9.99.5-13.5 fLNeutrophils Percent Auto75.9 43.0-75.0 %Lymphocytes Percent Auto16.420.5-60.0 %Monocytes Percent Auto5.81.7- 12.0 %Eosinophils Percent Auto0.60.9-7.0 %Basophils Percent Auto0.60.2-2.0 % Immature Granulocytes Pct Auto0.70.0-0.5 %Neutrophils Absolute Auto9.61.4-6.5 10 3/uLLymphocytes Absolute Auto2.11.2-3.8 10 3/uLMonocytes Absolute Auto0.70.3-0.8 10 3/uLEosinophils Absolute Auto0.10.0-0.7 10 3/uLBasophils Absolute Auto0.10.0- 0.1 10 3/uLImmature Granulocytes Abs Auto0.090.00-0.03 10 3/uLPerforming Lab:see noteML - [facility] LBE coli Shiga Toxin EIA Reviewed date:10/17/2024 09:27:10 AM Interpretation: Performing Lab: Notes/Report: [facility] ,E coli Shiga Toxin EIASee Below For Report E coli Shiga Toxin EIA Negative E coli Shiga Toxin EIAPerformed at: [facility] E coli Shiga Toxin EIA Negative E coli Shiga Toxin [id number] [place], [place] [id number] E coli Shiga Toxin EIA Negative E coli Shiga Toxin EIALab Director: Doyle Mendenhall PhD, Phone: [phone] E coli Shiga Toxin EIA Negative Performing Lab:see note LC - [facility] LB SEE REPORT - Cut Plug Packer Id information not found for OBX-specific skiver machine operator legend Salmonella/Shigella Screen Reviewed date:10/17/2024 09:27:10 AM Interpretation: Performing Lab: Notes/Report: [facility] ,Salmonella/Shigella ScreenSee Below For Report Salmonella/Shigella Screen Salmonella/Shigella ScreenNo Salmonella or Shigella recovered. Salmonella/Shigella Screen Performing Lab:see noteLC - [facility] LBE coli Shiga Toxin EIA Reviewed date:10/26/2024 03:06:58 PM Interpretation: Performing Lab: Notes/Report: [facility] ,E coli Shiga Toxin EIASee Below For Report E coli Shiga Toxin EIA E coli Shiga Toxin EIANegative E coli Shiga Toxin EIA E coli Shiga Toxin EIAPerformed at: [facility] E coli Shiga Toxin EIA E coli Shiga Toxin [id number] [place], [place] [id number] E coli Shiga Toxin EIA E coli Shiga Toxin EIALab Director: Doyle Mendenhall PhD, Phone: [phone] E coli Shiga Toxin EIA Performing Lab:see note LC - [facility] LB SEE REPORT - Cut Plug Packer Id information not found for OBX-specific skiver machine operator legend Salmonella/Shigella Screen Reviewed date:10/30/2024 12:57:59 PM Interpretation: Performing Lab: Notes/Report: [facility] ,Salmonella/Shigella ScreenSee Below For Report Salmonella/Shigella Screen Salmonella/Shigella ScreenNo Salmonella or Shigella recovered. Salmonella/Shigella Screen Performing Lab:see note - [facility] LBE coli Shiga Toxin EIA Reviewed date:10/30/2024 12:57:59 PM Interpretation: Performing Lab: Notes/Report: [facility] ,E coli Shiga Toxin EIASee Below For Report E coli Shiga Toxin EIA E coli Shiga Toxin EIANegative E coli Shiga Toxin EIA E coli Shiga Toxin EIAPerformed at: [facility] E coli Shiga Toxin EIA E coli Shiga Toxin [id number] [place], [place] [id number] E coli Shiga Toxin EIA E coli Shiga Toxin EIALab Director: Doyle Mendenhall PhD, Phone: [phone] E coli Shiga Toxin EIA Performing Lab:see note LC - [facility] LB SEE REPORT - Cut Plug Packer Id information not found for OBX-specific skiver machine operator legend PROF 14(COMP METB) Reviewed date:02/26/2025 09:22:15 AM Interpretation: Performing Lab: Notes/Report: [facility] ,Vdavfu081634-178 mmol/LPotassium3.83.5-5.1 mmol/WNvbfucno59288-890 mmol/LCarbon Ufktjne13.721.0-32.0 mmol/LAnion Gap16.2Kkauzjl51926-802 mg/dLBlood Urea Znbsywlq01.07.0-18.0 mg/dLCreatinine0.710.55-1.02 mg/dLEstimated GFR ( Cindi>60>=60 mL/min/1.73m 2Estimated GFR (Non- Coretta>60>=60 mL/min/1.73m 2BUN Creatinine Ratio21.5Vtjqatr1.88.5-10.1 mg/dLBilirubin Total0.30.2-1.0 mg/dL Aspartate Amino Okdnggpbrrv9412-20 U/LAlanine Ygkybisfooqvloqn3343-97 U/L Alkaline Fngarrcwzky9003-127 U/LTotal Protein7.66.4-8.2 g/dLAlbumin Level3.13.4- 5.0 g/dLGlobulin4.5Albumin Globulin Ratio0.7Performing Lab:see note - [facility] LBE coli Shiga Toxin EIA Reviewed date:03/05/2025 08:44:56 AM Interpretation: Performing Lab: Notes/Report: [facility] ,E coli Shiga Toxin EIASee Below For Report E coli Shiga Toxin EIA WILL FOLLOW E coli Shiga Toxin EIANegative E coli Shiga Toxin EIA WILL FOLLOW E coli Shiga Toxin EIAPerformed at: [facility] E coli Shiga Toxin EIA WILL FOLLOW E coli Shiga Toxin [id number] [place], [place] [id number] E coli Shiga Toxin EIA WILL FOLLOW E coli Shiga Toxin EIALab Director: Doyle Mendenhall PhD, Phone: [phone] E coli Shiga Toxin EIA WILL FOLLOW Performing Lab:see note LC - [facility] LB SEE REPORT - Cut Plug Packer Id information not found for OBX-specific skiver machine operator legend Salmonella/Shigella Screen Reviewed date:03/05/2025 08:44:56 AM Interpretation: Performing Lab: Notes/Report: [facility] ,Salmonella/Shigella ScreenSee Below For Report Salmonella/Shigella Screen Salmonella/Shigella ScreenNo Salmonella or Shigella recovered. Salmonella/Shigella Screen Performing Lab:see noteLC - [facility] LBCampylobacter Culture Reviewed date:03/05/2025 08:44:56 AM Interpretation: Performing Lab: Notes/Report: [facility] ,Campylobacter CultureSee Below For Report Campylobacter Culture No Campylobacter species isolated. Performing Lab:see noteLC - [facility] LBCBC AUTO DIFF Reviewed date:02/27/2025 08:35:01 AM Interpretation: Performing Lab: Notes/Report: [facility] ,White Blood Count11.64.0-11.0 10 3/uLRed Blood Count4.314.20-5.40 10 6/uL Tinduoefuv69.912.0-16.0 g/eHGsjzqdryuw24.336.0-48.0 %Mean Corpuscular Hoqauf29.8 81.0-99.0 fLMean Corpuscular Bqqwrbtwmj34.326.7-34.0 pgMean Corpuscular HGB Conc 33.729.9-35.2 g/dLRed Cell Distribution Width13.911.0-15.0 %Platelet Qavte653 150-450 10 3/uLMean Platelet Hlzavh97.19.5-13.5 fLNeutrophils Percent Auto69.0 43.0-75.0 %Lymphocytes Percent Auto20.620.5-60.0 %Monocytes Percent Auto7.11.7- 12.0 %Eosinophils Percent Auto1.20.9-7.0 %Basophils Percent Auto0.50.2-2.0 % Immature Granulocytes Pct Auto1.60.0-0.5 %Neutrophils Absolute Auto8.01.4-6.5 10 3/uLLymphocytes Absolute Auto2.41.2-3.8 10 3/uLMonocytes Absolute Auto0.80.3-0.8 10 3/uLEosinophils Absolute Auto0.10.0-0.7 10 3/uLBasophils Absolute Auto0.10.0- 0.1 10 3/uLImmature Granulocytes Abs Auto0.190.00-0.03 10 3/uLPerforming Lab:see noteML - [facility] LBPROF 14(COMP METB) Reviewed date:02/27/2025 08:35:01 AM Interpretation: Performing Lab: Notes/Report: [facility] ,Abdejk840040-050 mmol/LPotassium3.73.5-5.1 mmol/YErbijoao15640-567 mmol/LCarbon Mqvrjej19.421.0-32.0 mmol/LAnion Gap18.9Qpkxiyf98586-154 mg/dLBlood Urea Cnjubnxa39.07.0-18.0 mg/dLCreatinine0.760.55-1.02 mg/dLEstimated GFR ( Cindi>60>=60 mL/min/1.73m 2Estimated GFR (Non- Coretta>60>=60 mL/min/1.73m 2BUN Creatinine Ratio14.6Jaloivc2.18.5-10.1 mg/dLBilirubin Total0.20.2-1.0 mg/dL Aspartate Amino Ljxkvubcvzf9971-79 U/LAlanine Ylmwsicmjwmnunal2846-13 U/L Alkaline Iulbrzcquhj8228-531 U/LTotal Protein7.96.4-8.2 g/dLAlbumin Level3.23.4- 5.0 g/dLGlobulin4.7Albumin Globulin Ratio0.7Performing Lab:see note - [facility] LBBlood Culture 1 Reviewed date:03/05/2025 08:44:56 AM Interpretation: Performing Lab: Notes/Report: RIGHT [facility] ,Blood Culture 1See Below For Report Blood Culture 1 NG5D NO GROWTH AT 5 DAYS.^NO GROWTH AT 5 DAYS. [facility] LBBlood [facility] 2 Reviewed date:03/05/2025 08:44:56 AM Interpretation: Performing Lab: Notes/Report: LEFT [facility] ,Blood Culture 2See Below For Report Blood Culture 2 NG5D NO GROWTH AT 5 DAYS.^NO GROWTH AT 5 DAYS. Performing Lab:see [facility] LBC. Difficile PCR Reviewed date:02/27/2025 08:35:01 AM Interpretation: Performing Lab: Notes/Report: [facility] ,C. Difficile PCRNEGATIVEPerforming Lab:see note - [facility] LBUA Micro, reflex to culture Reviewed date:02/27/2025 08:35:01 AM Interpretation: Performing Lab: Notes/Report: [facility] ,Color UrineLT. YELLOWYELLOWClarity UrineCLEARCLEARSpecific Pala Urine1.025 1.005-1.025pH Urine5.55.0-9.0Protein UrineNEGATIVENEG/TRACE mg/dLGlucose Urine UANEGATIVENEGATIVE mg/dLBilirubin UrineNEGATIVENEGATIVEKetones UrineNEGATIVE NEGATIVE mg/dLBlood UrineNEGATIVENEGATIVENitrite UrineNEGATIVENEGATIVE Urobilinogen Urine0.20.2-1.0 EU/dLLeukocyte Esterase UrineTRACENEGATIVEWBC Urine 2-5NONE SEEN #/HPFRBC Urine2-50-2 #/HPFBacteria UrineSMALLNONE SEEN #/HPFMucus UrineNONE SEENNONE SEENSquamous Epithelial Cell UrineFEWNONE/RARE #/LPFCrystals Seen?None SeenNone Seen #/HPFCast Seen?NONE SEENNONE SEEN #/LPFUrine Culture IndicatedYES-FRMCPerforming Lab:see noteML - [facility] LBUrine Culture - [facility] Reviewed date:03/01/2025 03:16:08 PM Interpretation: Performing Lab: Notes/Report: [facility] ,Urine Culture - FRMCSee Below For Report Urine Culture - [facility] 20,000 colonies/ml mixed bacterial skin contaminants Urine Culture - FRMCincluding gram negative bacilli - 2 Days Urine Culture - [facility] 20,000 colonies/ml mixed bacterial skin contaminants Urine Culture - [facility] Urine Culture - [facility] 20,000 colonies/ml mixed bacterial skin contaminants Urine Culture - FRMCTesting [facility] Urine Culture - [facility] 20,000 colonies/ml mixed bacterial skin contaminants Urine Culture - [id number] [place] [address] Urine Culture - [facility] 20,000 colonies/ml mixed bacterial skin contaminants Performing Lab:see noteML - [facility] LBPROF 14(COMP METB) Reviewed date:02/27/2025 08:35:01 AM Interpretation: Performing Lab: Notes/Report: [facility] ,Myaayx836537-586 mmol/LPotassium3.53.5-5.1 mmol/JOasrxjbl58750-008 mmol/LCarbon Eczfyuv48.321.0-32.0 mmol/LAnion Gap15.3Ummgyon19545-078 mg/dLBlood Urea Nitrogen9.07.0-18.0 mg/dLCreatinine0.660.55-1.02 mg/dLEstimated GFR ( Cindi>60>=60 mL/min/1.73m 2Estimated GFR (Non- Coretta>60>=60 mL/min/1.73m 2BUN Creatinine Ratio13.9Hipkaxf8.78.5-10.1 mg/dLBilirubin Total0.20.2-1.0 mg/dL Aspartate Amino Fkaihrwjrok6875-05 U/LAlanine Pelbybrvgjcjesqq2697-43 U/L Alkaline Hfjaxfbmxki4246-492 U/LTotal Protein7.76.4-8.2 g/dLAlbumin Level3.33.4- 5.0 g/dLGlobulin4.4Albumin Globulin Ratio0.8Performing Lab:see noteML - [facility] LBCBC AUTO DIFF Reviewed date:03/05/2025 08:44:56 AM Interpretation: Performing Lab: Notes/Report: [facility] ,White Blood Count10.34.0-11.0 10 3/uLRed Blood Count4.254.20-5.40 10 6/uL Srhijibvnt42.612.0-16.0 g/hZNfdzuiilrt84.936.0-48.0 %Mean Corpuscular Tniiub88.2 81.0-99.0 fLMean Corpuscular Nyovaotvgr47.026.7-34.0 pgMean Corpuscular HGB Conc 33.329.9-35.2 g/dLRed Cell Distribution Width14.111.0-15.0 %Platelet Ggnxg148 150-450 10 3/uLMean Platelet Visqvu44.49.5-13.5 fLNeutrophils Percent Auto74.0 43.0-75.0 %Lymphocytes Percent Auto16.620.5-60.0 %Monocytes Percent Auto6.61.7- 12.0 %Eosinophils Percent Auto0.90.9-7.0 %Basophils Percent Auto0.50.2-2.0 % Immature Granulocytes Pct Auto1.40.0-0.5 %Neutrophils Absolute Auto7.71.4-6.5 10 3/uLLymphocytes Absolute Auto1.71.2-3.8 10 3/uLMonocytes Absolute Auto0.70.3-0.8 10 3/uLEosinophils Absolute Auto0.10.0-0.7 10 3/uLBasophils Absolute Auto0.10.0- 0.1 10 3/uLImmature Granulocytes Abs Auto0.140.00-0.03 10 3/uLPerforming Lab:see noteML - [facility] LBLACTATE or LACTIC ACID Reviewed date:03/05/2025 08:44:56 AM Interpretation: Performing Lab: Notes/Report: [facility] ,Lactate/Lactic Acid3.60.4-2.0 mmol/LRESULTS CALLED TO GAY ENCISOPerforming Lab:see noteML - [facility] LBPROF CHEM 8 (BAS METB) Reviewed date:03/05/2025 08:44:56 AM Interpretation: Performing Lab: Notes/Report: [facility] ,Amhlqo661994-134 mmol/LPotassium4.03.5-5.1 mmol/MQkrwkgwd91917-670 mmol/LCarbon Oyaived86.121.0-32.0 mmol/LAnion Gap18.5Iuckcdb80495-184 mg/dLBlood Urea Nitrogen8.07.0-18.0 mg/dLCreatinine0.610.55-1.02 mg/dLEstimated GFR ( Cindi>60>=60 mL/min/1.73m 2Estimated GFR (Non- Coretta>60>=60 mL/min/1.73m 2BUN Creatinine Ratio13.7Wtlfcdp1.88.5-10.1 mg/dLPerforming Lab:see note - [facility] LBUA RANDOM W or MICROSCOPIC Reviewed date:03/05/2025 08:44:56 AM Interpretation: Performing Lab: Notes/Report: [facility] ,Color UrineLT. YELLOWYELLOWClarity UrineCLEARCLEARSpecific Pala Urine>=1.030 1.005-1.025pH Urine6.05.0-9.0Protein UrineTRACENEG/TRACE mg/dLGlucose Urine UA 250NEGATIVE mg/dLBilirubin UrineNEGATIVENEGATIVEKetones UrineNEGATIVENEGATIVE mg/dLBlood UrineNEGATIVENEGATIVENitrite UrineNEGATIVENEGATIVEUrobilinogen Urine 0.20.2-1.0 EU/dLLeukocyte Esterase UrineSMALLNEGATIVEWBC Urine5-10NONE SEEN #/HPFRBC Urine0-20-2 #/HPFBacteria UrineSMALLNONE SEEN #/HPFMucus UrineTRACENONE SEENSquamous Epithelial Cell UrineMANYNONE/RARE #/LPFCrystals Seen?None SeenNone Seen #/HPFCast Seen?NONE SEENNONE SEEN #/LPFUrine Culture IndicatedYES-FR Performing Lab:see noteML - [facility] LBUrine Culture - [facility] Reviewed date:03/09/2025 11:24:45 AM Interpretation: Performing Lab: Notes/Report: [facility] ,Urine Culture - FRMCSee Below For Report Urine Culture - [facility] Testing performed at [facility] O:CANALB Isolated Urine Culture - [facility] [place] Urine Culture - [id number] [place] [address] Urine Culture - [facility] Testing performed at [facility] O:CANALB Isolated Urine Culture - [facility] [place] Urine Culture - FRMCSee Below For Report Urine Culture - [facility] Testing performed at [facility] O:CANALB Isolated Urine Culture - [facility] [place] Urine Culture - FRMCSee Below For Report Urine Culture - [facility] Testing performed at [facility] O:CANALB Isolated Urine Culture - [facility] [place] Urine Culture - [facility]>100,000 Urine Culture - [facility] Testing performed at [facility] O:CANALB Isolated Urine Culture - [facility] [place] Performing Lab:see note - [facility] LBXR chest 1V Reviewed date:03/05/2025 08:44:56 AM Interpretation: Performing Lab: Notes/Report: Source Facility: [place] [address] [place] [address] XRay Report Signed Patient: JONES PANIAGUA MR#: [id number] : 1980 Acct:[id number] Age/Sex: 44 / F ADM Date: 03/03/25 Loc: ER Attending Dr: Ordering Physician: Zoe Lopez M.D. Date of Service: 03/03/25 Procedure(s): XR chest 1V Accession Number(s): [id number] cc: GAY ENCISO ; Zoe Lopez M.D. [place] [address] Patient Name: JONES PANIAGUA MRN: [id number] date: 1980 Sex: F Assigned Patient Location: ER Current Patient Location: ER Accession/Order Number: [id number] Exam Date: 03/03/2025 16:20 Report Date: 03/03/2025 [...] Cox M.D. 03/03/2025 5:30 PM Dictation Location: [place] [address] Electronically authenticated by: [id number] Y Date: 03/03/2025 17:30 Dictated By: Rafal Cox M.D. Signed By: 03/03/25 1732 DD/ 173 TD/TT: Blister Packing Machine Tender:LACTATE or LACTIC ACID Reviewed date:03/05/2025 08:44:56 AM Interpretation: Performing Lab: Notes/Report: [facility] ,Lactate/Lactic Acid2.80.4-2.0 mmol/LRESULTS CALLED TO DR. Lewis Lab: see note - [facility] LBLACTATE or LACTIC ACID Reviewed date:03/06/2025 08:53:27 AM Interpretation: Performing Lab: Notes/Report: N [facility] ,Lactate/Lactic Acid2.20.4-2.0 mmol/LRESULTS CALLED TO MONICA MORA LPN at 1050 Performing Lab:see note - [facility] LBLACTATE or LACTIC ACID Reviewed date:03/08/2025 11:03:04 AM Interpretation: Performing Lab: Notes/Report: N [facility] ,Lactate/Lactic Acid1.80.4-2.0 mmol/LPerforming Lab:see note - [facility] LBCBC AUTO DIFF Reviewed date:03/12/2025 08:33:57 AM Interpretation: Performing Lab: Notes/Report: [facility] ,White Blood Count12.24.0-11.0 10 3/uLRed Blood Count4.274.20-5.40 10 6/uL Bdxdecnduk59.612.0-16.0 g/uFShlncqszfx65.436.0-48.0 %Mean Corpuscular Nhafmw96.0 81.0-99.0 fLMean Corpuscular Kfuthxbdrc15.926.7-34.0 pgMean Corpuscular HGB Conc 32.929.9-35.2 g/dLRed Cell Distribution Width14.111.0-15.0 %Platelet Xzrvw943 150-450 10 3/uLMean Platelet Wegaqb38.29.5-13.5 fLNeutrophils Percent Auto75.0 43.0-75.0 %Lymphocytes Percent Auto15.220.5-60.0 %Monocytes Percent Auto6.61.7- 12.0 %Eosinophils Percent Auto0.80.9-7.0 %Basophils Percent Auto0.40.2-2.0 % Immature Granulocytes Pct Auto2.00.0-0.5 %Neutrophils Absolute Auto9.21.4-6.5 10 3/uLLymphocytes Absolute Auto1.91.2-3.8 10 3/uLMonocytes Absolute Auto0.80.3-0.8 10 3/uLEosinophils Absolute Auto0.10.0-0.7 10 3/uLBasophils Absolute Auto0.10.0- 0.1 10 3/uLImmature Granulocytes Abs Auto0.240.00-0.03 10 3/uLPerforming Lab:see noteML - [facility] LBPROF CHEM 8 (BAS METB) Reviewed date:03/12/2025 08:33:57 AM Interpretation: Performing Lab: Notes/Report: [facility] ,Ohwwgq100481-953 mmol/LPotassium3.93.5-5.1 mmol/OLauzwsft82413-848 mmol/LCarbon Getnhtn82.421.0-32.0 mmol/LAnion Gap14.5Bysegme89117-149 mg/dLBlood Urea Nitrogen9.07.0-18.0 mg/dLCreatinine0.630.55-1.02 mg/dLEstimated GFR ( Cindi>60>=60 mL/min/1.73m 2Estimated GFR (Non- Coretta>60>=60 mL/min/1.73m 2BUN Creatinine Ratio14.0Qnhynoh0.98.5-10.1 mg/dLPerforming Lab:see noteML - [facility] LBXR thoracic spine 3V Reviewed date:03/12/2025 08:33:57 AM Interpretation: Performing Lab: Notes/Report: Source Facility: [place] [address] XRay Report Signed Patient: JONES PANIAGUA MR#: [id number] : 1980 Acct:[id number] Age/Sex: 44 / F ADM Date: Loc: [facility] Attending Dr: KIMBERLY FLORES Ordering Physician: KIMBERLY FLORES Date of Service: 03/09/25 Procedure(s): XR thoracic spine 3V Accession Number(s): [id number] cc: GAY ENCISO ; KIMBERLY FLORES [place] [id number] Patient Name: JONES PANIAGUA MRN: [id number] date: 1980 Sex: F Assigned Patient Location: [facility] Current Patient Location: [facility] Accession/Order Number: [id number] Exam Date: 03/09/2025 17:42 Report Date: 03/09/2025 [...] Cox M.D. 03/09/2025 9:50 PM Dictation Location: [place] [address] Electronically authenticated by: [id number] Y Date: 03/09/2025 21:50 Dictated By: Rafal Cox M.D. 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:LACTATE or LACTIC ACID Reviewed date:03/12/2025 08:33:57 AM Interpretation: Performing Lab: Notes/Report: [facility] ,Lactate/Lactic Acid3.00.4-2.0 mmol/L RESULTS CALLED TO LISA Mckeon RN@BY Cresencio Odom MLT at 2333 Performing Lab:see note - [facility] LBLACTATE or LACTIC ACID Reviewed date:03/12/2025 08:33:57 AM Interpretation: Performing Lab: Notes/Report: [facility] ,Lactate/Lactic Acid2.20.4-2.0 mmol/L RESULTS CALLED TO LISA Urbina RN @BY Cresencio Odom MLT at 0203 Performing Lab:see note - [facility] LBLACTATE or LACTIC ACID Reviewed date:03/13/2025 08:32:42 AM Interpretation: Performing Lab: Notes/Report: N [facility] ,Lactate/Lactic Acid1.30.4-2.0 mmol/LPerforming Lab:see note - [facility] LBLACTATE or LACTIC ACID Reviewed date:03/15/2025 09:25:36 AM Interpretation: Performing Lab: Notes/Report: N [facility] ,Lactate/Lactic Acid1.80.4-2.0 mmol/LPerforming Lab:see note - [facility] LBLACTATE or LACTIC ACID Reviewed date:03/22/2025 01:33:48 PM Interpretation: Performing Lab: Notes/Report: [facility] ,Lactate/Lactic Acid1.10.4-2.0 mmol/LPerforming Lab:see note - [facility] LBLACTATE or LACTIC ACID Reviewed date:03/23/2025 09:19:37 AM Interpretation: Performing Lab: Notes/Report: [facility] ,Lactate/Lactic Acid2.70.4-2.0 mmol/LRESULTS CALLED TO allyson glez rn Performing Lab:see noteML - [facility] LBLACTATE or LACTIC ACID Reviewed date:03/27/2025 02:41:37 PM Interpretation: Performing Lab: Notes/Report: N [facility] ,Lactate/Lactic Acid2.60.4-2.0 mmol/LRESULTS CALLED TO OLY SMITHPerforming Lab: see note - [facility] LBAerobic Culture Reviewed date:04/09/2025 10:39:49 AM Interpretation: Performing Lab: Notes/Report: [facility] ,Aerobic CultureSee Below For Report Aerobic Culture Aerobic CultureMixed skin osmany Aerobic Culture Aerobic CulturePerformed at: [facility] Aerobic Culture Aerobic [address] [place], [place] [id number] Aerobic Culture Aerobic CultureLab Director: Doyle Mendenhall PhD, Phone: [phone] Aerobic Culture Performing Lab:see note - [facility] LB SEE REPORT - Cut Plug Packer Id information not found for OBX-specific skiver machine operator legend Anaerobic Culture Reviewed date:04/17/2025 08:17:09 AM Interpretation: Performing Lab: Notes/Report: [facility] ,Anaerobic CultureSee Below For Report Anaerobic Culture Anaerobic CultureNo anaerobic growth in 72 hours. Anaerobic Culture Performing Lab:see note - [facility] LBAerobic Culture Reviewed date:04/09/2025 10:39:49 AM Interpretation: Performing Lab: Notes/Report: [facility] ,Aerobic CultureSee Below For Report Aerobic Culture Aerobic CultureMixed skin osmany Aerobic Culture Aerobic CulturePerformed at: [facility] Aerobic Culture Aerobic [address] [place], [place] [id number] Aerobic Culture Aerobic CultureLab Director: Doyle Mendenhall PhD, Phone: [phone] Aerobic Culture Performing Lab:see note - [facility] LB SEE REPORT - Cut Plug Packer Id information not found for OBX-specific skiver machine operator legend Aerobic Culture Reviewed date:04/17/2025 08:17:09 AM Interpretation: Performing Lab: Notes/Report: [facility] ,Aerobic CultureSee Below For Report Aerobic Culture Aerobic CultureMixed skin osmany Aerobic Culture Aerobic CulturePerformed at: [facility] Aerobic Culture Aerobic [address] [place], [place] [id number] Aerobic Culture Aerobic CultureLab Director: Doyle Mendenhall PhD, Phone: [phone] Aerobic Culture Performing Lab:see note - [facility] LB SEE REPORT - Cut Plug Packer Id information not found for OBX-specific skiver machine operator legend Anaerobic Culture Reviewed date:04/17/2025 08:17:09 AM Interpretation: Performing Lab: Notes/Report: [facility] ,Anaerobic CultureSee Below For Report Anaerobic Culture Anaerobic CultureNo anaerobic growth in 72 hours. Anaerobic Culture Performing Lab:see note - [facility] LBH. pylori Stool Ag, EIA Reviewed date:10/26/2024 09:21:53 AM Interpretation: Performing Lab: Notes/Report: STOOL [facility] ,H. pylori Stool Ag, EIANegativeNegative Performed at: [address] [id number] Diamond Die Maker: Doyle Mendehnall PhD, Phone: [phone] Performing Lab[facility] LBCBC AUTO DIFF Reviewed date:02/27/2025 04:34:12 PM Interpretation: Performing Lab: Notes/Report: [facility] ,White Blood Count10.24.0-11.0 10 3/uLRed Blood Count4.094.20-5.40 10 6/uL Wrhpenafwq79.112.0-16.0 g/lDJhksjwksae50.536.0-48.0 %Mean Corpuscular Sjhnbn92.6 81.0-99.0 fLMean Corpuscular Jzhcebjlwu07.026.7-34.0 pgMean Corpuscular HGB Conc 33.229.9-35.2 g/dLRed Cell Distribution Width14.011.0-15.0 %Platelet Xkuas514 150-450 10 3/uLMean Platelet Nojqup28.79.5-13.5 fLNeutrophils Percent Auto74.4 43.0-75.0 %Lymphocytes Percent Auto17.220.5-60.0 %Monocytes Percent Auto5.71.7- 12.0 %Eosinophils Percent Auto0.70.9-7.0 %Basophils Percent Auto0.60.2-2.0 % Immature Granulocytes Pct Auto1.40.0-0.5 %Neutrophils Absolute Auto7.61.4-6.5 10 3/uLLymphocytes Absolute Auto1.81.2-3.8 10 3/uLMonocytes Absolute Auto0.60.3-0.8 10 3/uLEosinophils Absolute Auto0.10.0-0.7 10 3/uLBasophils Absolute Auto0.10.0- 0.1 10 3/uLImmature Granulocytes Abs Auto0.140.00-0.03 10 3/uLPerforming Lab:see noteML - [facility] LBLACTATE or LACTIC ACID Reviewed date:02/27/2025 04:34:12 PM Interpretation: Performing Lab: Notes/Report: [facility] ,Lactate/Lactic Acid2.10.4-2.0 mmol/LRESULTS CALLED TO OLY SMITH LPNPerforming Lab:see note - [facility] LBLACTATE or LACTIC ACID Reviewed date:03/02/2025 12:05:01 PM Interpretation: Performing Lab: Notes/Report: N [facility] ,Lactate/Lactic Acid2.10.4-2.0 mmol/LRESULTS CALLED TO Gay EncisoPerforming Lab:see note - [facility] LBGLYCOHEMOGLOBIN A1C Reviewed date:02/26/2025 09:22:15 AM Interpretation: Performing Lab: Notes/Report: [facility] ,Glycohemoglobin A1C8.34.5-6.2 % ADA RECOMMENDED LIMIT 4.0 - 6.0 ADA THERAPEUTIC TARGET < 7.0 ACTION SUGGESTED > 7.0 Estimated Average Wympmiy986Sqvhzjelau Lab:see noteML - [facility] LB T4 Reviewed date:08/08/2024 02:48:03 PM Interpretation: Performing Lab: Notes/Report: [facility] ,T4 Tsgwjxxkb42.404.80-13.90 ug/dLPerforming Lab:see noteML - [facility] LBPROF 14(COMP METB) Reviewed date:08/08/2024 02:48:03 PM Interpretation: Performing Lab: Notes/Report: [facility] ,Eubzds673166-975 mmol/LPotassium3.43.5-5.1 mmol/DClcsleqi32728-388 mmol/LCarbon Pcnvsdk76.921.0-32.0 mmol/LAnion Gap12.1Brrywtn9184-738 mg/dLBlood Urea Nitrogen 20.07.0-18.0 mg/dLCreatinine0.640.55-1.02 mg/dLEstimated GFR ( Cindi>60 >=60 mL/min/1.73m 2Estimated GFR (Non- Coretta>60>=60 mL/min/1.73m 2BUN Creatinine Ratio31.7Ksqyxna0.28.5-10.1 mg/dLBilirubin Total0.20.2-1.0 mg/dL Aspartate Amino Flmpqlaxczl0694-27 U/LAlanine Kcjlkkmsdakyuork2938-49 U/L Alkaline Ceqriguuvio4269-643 U/LTotal Protein6.76.4-8.2 g/dLAlbumin Level3.23.4- 5.0 g/dLGlobulin3.5Albumin Globulin Ratio0.9Performing Lab:see note - [facility] LBLIPID PROFILE Reviewed date:08/08/2024 02:48:03 PM Interpretation: Performing Lab: Notes/Report: [facility] ,Ydczrsvawhrgg726<=150 mg/uEFqqmqrlwulg978<=200 mg/dLHDL Dcoxtfophwi4874-17 mg/dL > or =60 mg/dl - LOW CARDIOVASCULAR RISK <40 mg/dl - HIGH CARDIOVASCULAR RISK LDL Cholesterol Qfjltehrzg514.0 <100 mg/dl OPTIMAL 100-129 mg/dl NEAR OR ABOVE OPTIMAL 130-159 mg/dl BORDERLINE HIGH 160-189 mg/dl HIGH >190 mg/dl VERY HIGH VLDL YIDJBXAQNIK01.8Chol HDL Ratio6.2 3.3 - 4.4 LOW RISK 4.4 - 7.1 AVERAGE RISK 7.1 - 11.0 MODERATE RISK >11.0 HIGH RISK Performing Lab:see note - [facility] LBIRON Reviewed date:08/08/2024 02:48:03 PM Interpretation: Performing Lab: Notes/Report: [facility] ,Emdi189.050.0-170.0 ug/dLPerforming Lab:see note - [facility] LB INSULIN Reviewed date:08/15/2024 01:02:11 PM Interpretation: Performing Lab: Notes/Report: [facility] ,Gixdxli81.12.6-24.9 uIU/mL Performed at: [facility] [address] [id number] Diamond Die Maker: Doyle Mendenhall PhD, Phone: [phone] Performing Lab:see note - [facility] LBGLYCOHEMOGLOBIN A1C Reviewed date:08/08/2024 02:48:03 PM Interpretation: Performing Lab: Notes/Report: [facility] ,Glycohemoglobin A1C6.74.5-6.2 % ADA RECOMMENDED LIMIT 4.0 - 6.0 ADA THERAPEUTIC TARGET < 7.0 ACTION SUGGESTED > 7.0 Estimated Average Jifqnfv913Qatafvqlxv Lab:see note - [facility] LB FREE T3 Reviewed date:08/08/2024 02:48:03 PM Interpretation: Performing Lab: Notes/Report: [facility] ,Free T32.892.18-3.98 pg/mLPerforming Lab:[facility] LB TSH Reviewed date:08/08/2024 02:48:03 PM Interpretation: Performing Lab: Notes/Report: [facility] ,Thyroid Stimulating Hormone0.6230.358-3.740 uIU/mLPerforming Lab:see noteSouth[facility] LBVITAMIN D 25 [place] Reviewed date:08/08/2024 02:48:03 PM Interpretation: Performing Lab: Notes/Report: [facility] ,Vitamin D27.7 <20 ng/mL Vit D deficient 20-<30 ng/mL Vit D insufficient 30-100 ng/mL Vit D sufficient >100 ng/mL Potential Toxicity Performing Lab:see [facility] LBVitamin B12 Reviewed date:08/15/2024 01:02:11 PM Interpretation: Performing Lab: Notes/Report: [facility] ,Vitamin S21161040-9142 pg/mL Performed at: - [facility] [id number] Diamond Die Maker: Doyle Mendenhall PhD, Phone: [phone] Performing Lab:see katya - [facility] LBCampylobacter Culture Reviewed date:10/17/2024 09:27:10 AM Interpretation: Performing Lab: Notes/Report: [facility] ,Campylobacter CultureSee Below For Report Campylobacter Culture No Campylobacter species isolated. Performing Lab:see katya - [facility] LBC. Difficile PCR Reviewed date:10/25/2024 10:18:31 AM Interpretation: Performing Lab: Notes/Report: [facility] ,C. Difficile PCRNEGATIVEPerforming Lab:see noteML - [facility] LB Campylobacter Culture Reviewed date:10/30/2024 12:57:59 PM Interpretation: Performing Lab: Notes/Report: [facility] ,Campylobacter CultureSee Below For Report Campylobacter Culture No Campylobacter species isolated. Performing Lab:see noteLC - [facility] LBUS abdomen complete Reviewed date:01/01/2025 12:58:33 PM Interpretation: Performing Lab: Notes/Report: Source Facility: [place] [address] Ultrasound Report Signed Patient: JONES PANIAGUA MR#: [id number] : 1980 Acct:[id number] Age/Sex: 44 / F ADM Date: 12/30/24 Loc: US Attending Dr: Ingrid Portillo NP Ordering Physician: Ingrid Portillo NP Date of Service: 12/30/24 Procedure(s): US abdomen complete Accession Number(s): [id number] cc: GAY ENCISO ; Ingrid Portillo NP [place] [address] Patient Name: JONES PANIAGUA MRN: [id number] date: 1980 Sex: F Assigned Patient Location: Current Patient Location: Accession/Order Number: [id number] Exam Date: 12/30/2024 15:15 Report Date: 12/30/2024 [...] Jr., D.O. 12/30/2024 3:18 PM Dictation Location: [place] [address] Electronically authenticated by: [id number] Y Date: 12/30/2024 15:18 Dictated By: Karel Ricci M.D. Signed By: 12/30/24 1520 DD/ 1518 TD/TT: Blister Packing Machine Tender:CBC AUTO DIFF Reviewed date:02/26/2025 09:22:15 AM Interpretation: Performing Lab: Notes/Report: [facility] ,White Blood Count10.84.0-11.0 10 3/uLRed Blood Count4.394.20-5.40 10 6/uL Zwakonibmr41.312.0-16.0 g/uLTfdtlhgpsx79.336.0-48.0 %Mean Corpuscular Wamjpi96.4 81.0-99.0 fLMean Corpuscular Bbtdyyckul42.626.7-34.0 pgMean Corpuscular HGB Conc 33.829.9-35.2 g/dLRed Cell Distribution Width14.011.0-15.0 %Platelet Nuvrn480 150-450 10 3/uLMean Platelet Ntykdv57.49.5-13.5 fLNeutrophils Percent Auto79.7 43.0-75.0 %Lymphocytes Percent Auto12.520.5-60.0 %Monocytes Percent Auto5.21.7- 12.0 %Eosinophils Percent Auto0.60.9-7.0 %Basophils Percent Auto0.60.2-2.0 % Immature Granulocytes Pct Auto1.40.0-0.5 %Neutrophils Absolute Auto8.61.4-6.5 10 3/uLLymphocytes Absolute Auto1.41.2-3.8 10 3/uLMonocytes Absolute Auto0.60.3-0.8 10 3/uLEosinophils Absolute Auto0.10.0-0.7 10 3/uLBasophils Absolute Auto0.10.0- 0.1 10 3/uLImmature Granulocytes Abs Auto0.150.00-0.03 10 3/uLPerforming Lab:see noteML - [facility] LBLACTATE or LACTIC ACID Reviewed date:02/26/2025 09:22:15 AM Interpretation: Performing Lab: Notes/Report: [facility] ,Lactate/Lactic Acid3.30.4-2.0 mmol/L RESULTS CALLED TO LISA Patel, RN @BY JAIMEE ChicasT at 0037 Performing Lab:see note - [facility] LBPROF CHEM 8 (BAS METB) Reviewed date:02/26/2025 09:22:15 AM Interpretation: Performing Lab: Notes/Report: [facility] ,Ocpzec553870-593 mmol/LPotassium4.23.5-5.1 mmol/ZOwbmfjgk39972-641 mmol/LCarbon Ufalhlq71.121.0-32.0 mmol/LAnion Gap20.9Cnybuhv96565-514 mg/dLBlood Urea Pucrshcp58.07.0-18.0 mg/dLCreatinine0.810.55-1.02 mg/dLEstimated GFR ( Cindi>60>=60 mL/min/1.73m 2Estimated GFR (Non- Coretta>60>=60 mL/min/1.73m 2BUN Creatinine Ratio21.0Ehulwlq0.38.5-10.1 mg/dLPerforming Lab:see note - [facility] LBHCG Qualitative* Reviewed date:02/26/2025 09:22:15 AM Interpretation: Performing Lab: Notes/Report: [facility] ,HCG QualitativeNEGATIVENEGATIVEPerforming Lab:see note - [facility] LBLACTATE or LACTIC ACID Reviewed date:02/27/2025 08:35:01 AM Interpretation: Performing Lab: Notes/Report: [facility] ,Lactate/Lactic Acid2.30.4-2.0 mmol/L RESULTS CALLED TO OLY PATEL RN @BY Miroslava Aguilar at 1901 Performing Lab:see note - [facility] LBLIPASE Reviewed date:02/27/2025 08:35:01 AM Interpretation: Performing Lab: Notes/Report: [facility] ,Adblrk48.016.0-77.0 U/LPerforming Lab:see note - [facility] LB MAGNESIUM Reviewed date:02/27/2025 08:35:01 AM Interpretation: Performing Lab: Notes/Report: [facility] ,Magnesium1.71.8-2.4 mg/dLPerforming Lab:see noteML - [facility] LB PROF 14(COMP METB) Reviewed date:02/27/2025 04:34:12 PM Interpretation: Performing Lab: Notes/Report: [facility] ,Xvpgwk962958-098 mmol/LPotassium3.83.5-5.1 mmol/NOpzowsuv73796-233 mmol/LCarbon Jgkqjlv64.421.0-32.0 mmol/LAnion Gap14.8Cksuahi45233-599 mg/dLBlood Urea Gfrefszk43.07.0-18.0 mg/dLCreatinine0.610.55-1.02 mg/dLEstimated GFR ( Cindi>60>=60 mL/min/1.73m 2Estimated GFR (Non- Coretta>60>=60 mL/min/1.73m 2BUN Creatinine Ratio21.6Acahvcf5.08.5-10.1 mg/dLBilirubin Total0.20.2-1.0 mg/dL Aspartate Amino Cddrdvbpeii273-10 U/LAlanine Vyugdhwmappshecy9997-00 U/LAlkaline Hmknjcahyuu8246-513 U/LTotal Protein7.46.4-8.2 g/dLAlbumin Level3.03.4-5.0 g/dL Globulin4.4Albumin Globulin Ratio0.7Performing Lab:see noteML - [facility] LBUS THYROID Reviewed date:08/27/2024 09:41:57 PM Interpretation: Performing Lab: Notes/Report: Source Facility: [facility] [place] [address] [place] [address] Ultrasound Report Signed Patient: JONES PANIAGUA MR#: [id number] : 1980 Acct:[id number] Age/Sex: 43 / F ADM Date: 08/24/24 Loc: US Attending Dr: Mary Grace Barfield M.D. Ordering Physician: Mary Grace Barfield M.D. Date of Service: 08/24/24 Procedure(s): US thyroid Accession Number(s): [id number] cc: GAY ENCISO ; Mary Grace Barfield M.D. [place] [address] Patient Name: JONES PANIAGUA MRN: [id number] date: 1980 Sex: F Assigned Patient Location: US Current Patient Location: US Accession/Order Number: [id number] Exam Date: 08/24/2024 09:09 Report Date: 08/24/2024 [...] this was thought to be cystic. The high school combination teacher today considered it solid and it was given TI-RADS 4 classification. No internal color flow is shown. Size has not significantly changed when measuring in a comparable manner. No other nodularity is seen. US/US thyroid IMPRESSION: SIMILAR SMALL LEFT THYROID NODULE. FOLLOW-UP IN ONE YEAR IS SUGGESTED. Impression dictated by: Simin Nelson M.D.08/24/2024 9:22 AM Dictation Location: [place] [address] Electronically authenticated by: [id number] Y Date: 08/24/2024 09:22 Dictated By: Simin Nelson M.D. Signed By: 08/24/24923 DD/ 1 TD/TT: Blister Packing Machine Tender:LACTATE or LACTIC ACID Reviewed date:03/12/2025 08:33:57 AM Interpretation: Performing Lab: Notes/Report: N [facility] ,Lactate/Lactic Acid3.00.4-2.0 mmol/LRESULTS CALLED TO Gay CramerPerforming Lab:see noteML - [facility] LBUA RANDOM W or MICROSCOPIC Reviewed date:03/12/2025 08:33:57 AM Interpretation: Performing Lab: Notes/Report: [facility] ,Color UrineYELLOWYELLOWClarity UrineCLEARCLEARSpecific Pala Urine1.025 1.005-1.025pH Urine5.55.0-9.0Protein UrineNEGATIVENEG/TRACE mg/dLGlucose Urine DE660TMDJYBAG mg/dLBilirubin UrineNEGATIVENEGATIVEKetones UrineNEGATIVENEGATIVE mg/dLBlood UrineNEGATIVENEGATIVENitrite UrineNEGATIVENEGATIVEUrobilinogen Urine 0.20.2-1.0 EU/dLLeukocyte Esterase UrineNEGATIVENEGATIVEWBC UrineNONE SEENNONE SEEN #/HPFRBC Urine0-20-2 #/HPFBacteria UrineTRACENONE SEEN #/HPFMucus UrineNONE SEENNONE SEENSquamous Epithelial Cell UrineMODERATENONE/RARE #/LPFCrystals Seen? None SeenNone Seen #/HPFCast Seen?NONE SEENNONE SEEN #/LPFUrine Culture IndicatedALREADY ORDEREDPerforming Lab:see noteML - [facility] LB Urine Culture - [facility] Reviewed date:03/12/2025 11:26:52 AM Interpretation: Performing Lab: Notes/Report: [facility] ,Urine Culture - FRMCSee Below For Report Urine Culture - [facility] <9,000 colonies/ml mixed Urine Culture - FRMCbacterial skin contaminants Urine Culture - [facility] <9,000 colonies/ml mixed Urine Culture - [facility]2 Days Urine Culture - [facility] <9,000 colonies/ml mixed Urine Culture - [facility] Urine Culture - [facility] <9,000 colonies/ml mixed Urine Culture - [facility]esting [facility] U[facility] - [facility] <9,000 colonies/ml mixed Urine Culture - [id number] [place] [address] Urine Culture - [facility] <9,000 colonies/ml mixed Performing Lab:see noteML - [facility] LBLACTATE or LACTIC ACID Reviewed date:03/12/2025 08:33:57 AM Interpretation: Performing Lab: Notes/Report: [facility] ,Lactate/Lactic Acid2.00.4-2.0 mmol/LPerforming Lab:see noteML - [facility] LBLACTATE or LACTIC ACID Reviewed date:03/19/2025 08:16:28 AM Interpretation: Performing Lab: Notes/Report: [facility] ,Lactate/Lactic Acid2.50.4-2.0 mmol/LRESULTS CALLED TO DR. GAY ENCISO at 1349 Performing Lab:see noteML - [facility] LBCT ABDOMEN W CON Reviewed date:03/22/2025 01:33:13 PM Interpretation: Performing Lab: Notes/Report: Source Facility: [facility] [place] [address] [place] [address] CT Scan Report Signed Patient: JONES PANIAGUA MR#: [id number] : 1980 Acct:[id number] Age/Sex: 44 / F ADM Date: 03/22/25 Loc: CT Attending Dr: Ingrid Portillo NP Ordering Physician: Ingrid Portillo NP Date of Service: 03/22/25 Procedure(s): CT abdomen w con Accession Number(s): [id number] cc: GAY ENCISO [place] [address] Patient Name: JNOES PANIAGUA MRN: [id number] date: 1980 Sex: F Assigned Patient Location: CT Current Patient Location: [facility] Accession/Order Number: [id number] Exam Date: 03/22/2025 10:05 Report Date: 03/22/2025 [...] Nelson M.D. 03/22/2025 1:02 PM Dictation Location: [place] [address] Electronically authenticated by: [id number] Y Date: 03/22/2025 13:02 Dictated By: Simin Nelson M.D. Signed By: 03/22/25 1305 DD/ 1302 TD/TT: Blister Packing Machine Tender:US THYROID Reviewed date:03/22/2025 01:33:48 PM Interpretation: Performing Lab: Notes/Report: Source Facility: [place] [address] Ultrasound Report Signed Patient: JONES PANIAGUA MR#: [id number] : 1980 Acct:[id number] Age/Sex: 44 / F ADM Date: 03/22/25 Loc: US Attending Dr: Mary Grace Barfield M.D. Ordering Physician: Mary Grace Barfield M.D. Date of Service: 03/22/25 Procedure(s): US thyroid Accession Number(s): [id number] cc: GAY ENCISO ; Mary Grace Barfield M.D. [place] [address] Patient Name: JONES PANIAGUA MRN: [id number] date: 1980 Sex: F Assigned Patient Location: Current Patient Location: [facility] Accession/Order Number: [id number] Exam Date: 03/22/2025 09:30 Report Date: 03/22/2025 [...] Nelson M.D. 03/22/2025 11:38 AM Dictation Location: [place] [address] Electronically authenticated by: [id number] Y Date: 03/22/2025 11:38 Dictated By: Simin Nelson M.D. Signed By: 03/22/25 1141 DD/ 1138 TD/TT: Blister Packing Machine Tender:GERDA alvarado MARK Reviewed date:03/22/2025 01:32:30 PM Interpretation: Performing Lab: Notes/Report: Source Facility: [place] [address] XRay Report Signed Patient: JONES PANIAGUA MR#: [id number] : 1980 Acct:[id number] Age/Sex: 44 / F ADM Date: 03/22/25 Loc: RAD Attending Dr: KIMBERLY FLORES Ordering Physician: KIMBERLY FLORES Date of Service: 03/22/25 Procedure(s): XR hip MARK Accession Number(s): [id number] cc: GAY ENCISO ; KIMBERLY FLORES [place] [address] Patient Name: JONES PANIAGUA MRN: [facility]:[id number] date: 1980 Sex: F Assigned Patient Location: [facility] Current Patient Location: [facility] Accession/Order Number: [id number] Exam Date: 03/22/2025 09:50 Report Date: 03/22/2025 [...] Nelson M.D. 03/22/2025 12:39 PM Dictation Location: [place] [address] Electronically authenticated by: [id number] Y Date: 03/22/2025 12:39 Dictated By: Simin Nelson M.D. Signed By: 03/22/25 1241 DD/ 1239 TD/TT: Blister Packing Machine Tender: Reason For Referral Diagnosis 1 Elevated lactic acid level (R79.89) Diagnosis 2 Pilonidal abscess (L 05.01) Referral Organization [facility] Referring Provider First Name Gay Referring Provider Last Name Britt Referring Provider Speciality Family Med kylene Referred Provider Jazmyn Key Referred Provider Specialty [...] Orally once daily- as needed; Duration: 30 daysPRNActiveTrulicity 1.5 MG/0.5MLas directed Subcutaneous weekly; Duration: 28 days5ActiveCyanocobalamin 1000 MCG/ML1 mL Injection ueyisws66/06/2024ActiveTriamcinolone Acetonide 0.025 % APPLY TO AFFECTED AREA TWICE DAILY NEEDED FOR 30 DAYS External; Duration: 30 DaysActiveCymbalta 20 MG1 capsule Orally Once a day; Duration: 30 days02/01/2024 ActiveMetoprolol Tartrate 100 MG1 tablet Orally 3 times a day; Duration: 90 days ActiveBlood Glucose Monitor System w/Deviceas qgxedqjx93/12/2025Active Fluocinonide 0.05 %1 application Externally Once a day- as needed; Duration: 30 daysActiveVitamin D (Ergocalciferol) 1.25 MG (08521 UT)1 capsule Orally once weekly; Duration: 28 daysActiveNizatidine 150 MG1 capsule Orally Once a day; Duration: 30 days05/04/2025tiveMounjaro 2.5 MG/0.5MLas directed Subcutaneous weekly; Duration: 28 dayscall for next dose02/26/2025tivePantoprazole Sodium 40 MG1 tablet 1/2 to 1 hour before morning meal Orally Once a day; Duration: 90 days5ActiveBenlysta 200 MG/[id number] Subcutaneous once weeklyActive predniSONE 10 MG1 tablet Orally once daily; Duration: 30 daysActiveLancets - daily; Duration: 90 days05/04/2025tiveBlood Glucose Test -as directed In Vitro daily; Duration: 90 days05/04/2025tiveFolic AcidActiveVoltaren 1 %as directed Externally as nuyrvz354ActiveHydroxychloroquine Sulfate 400 MG1 capsule Orally once daily; Duration: 30 daysActiveNystatin 194502 UNIT/ML5 ml Mouth/Throat Four times a day; Duration: 7 daysActiveKlonoPIN 0.5 MG 1 tablet Orally Once a day prn; Duration: 30 days F41.9 5ActiveFluticasone Propionate (Inhal) 100 MCG/ACT1 puff Inhalation Twice a day; Duration: 30 days5Active Social History Tobacco Use: Social History Observation [...] alcohol in the p ast year? No Ekjckt8RvykpckluaevdmCusrmbxmFRINS-Y (Standard) Question Answer Notes Did you have a drink containing alcohol in the p ast year? No Ricutg6SqrnwojretrzpkJvnpjjzl Problems Problem Type SNOMED Code ICD Code Onset Dates Problem Status W/U Status Risk Notes Problem Chronic fatigue syndrome (10907495) Chron ic fatigue (780.79) ActiveconfirmedProblemNon-toxic single thyroid nodule (753282312)Nontoxic single thyroid nodule (E04.1)ActiveconfirmedProblemSleep apnea (90149762)Sleep apnea, unspecified (G47.30)ActiveconfirmedProblemGeneralized enlarged lymph nodes (254632595)Generalized enlarged lymph nodes (R59.1)ActiveconfirmedProblem Hypertension (75716948)Hypertension (I10)ActiveconfirmedProblemGastroesophageal reflux disease (546929581)GERD (gastroesophageal reflux disease) (K21.9)Active confirmedProblemAnxiety (08022151)Anxiety (F41.9)ActiveconfirmedProblemType 2 diabetes mellitus (35309456)Type 2 diabetes mellitus (E11.9)Activeconfirmed ProblemLeukocytosis (743985175)Elevated WBC count (D72.829)Activeconfirmed ProblemThyroid nodule (968472735)Thyroid nodule (E04.1)ActiveconfirmedProblem Fatty liver (748640615)Fatty liver (K76.0)ActiveconfirmedProblemLupus (065318626)Lupus (M32.9)ActiveconfirmedProblemAbdominal pressure (758264695) Abdominal pressure (R10.9)ActiveconfirmedProblemRaynaud's disease (509561726) Raynauds phenomenon (I73.00)ActiveconfirmedProblemPure hypercholesterolemia (235340274)Pure hypercholesterolemia, unspecified (E78.00)ActiveconfirmedProblem Prediabetes (441149231)Pre-diabetes (R73.03)Activeconfirmed Vital Signs Temperature 98.2 degrees Fahrenheit 05/15/2024 Blood pressure atnkjslxl99 mm Hg03/08/20257715Pqimfq41 in03/08/2025lood pressure lwnnnejf565 mm Hg03/08/20257074Ygdrtf367.8 lbs1MI44.91 kg/m203/08/2025 Procedures Procedure Date Ordered Date Performed Result Body Sit e *CARDIO Stress Test - Momo Nuclear N/A Encounters Encounter Location Date Provider Diagnosis [facility] [address] [place] [address] 05/15/2024 Gay Enciso Enlarged lymph nodes R59.9 and C. difficile diarrhea A04.72 [facility] [address] [place] [address] 07/27/2024 Gay Enciso GERD (gastroesophageal reflux disease) K21.9 and Anxiety F41.9 [facility] [address] [place] [address] 08/11/2024 Víctor Hoy Generalized enlarged lymph nodes R59.1 and Elevated WBC count D72.8[address] [place] [address] 03/08/2025 Gay Enciso Elevated lactic acid level R79.89 ; Pilonidal abscess L05.01 and Type 2 diabetes mellitus E11.9 [facility] [address] [place] [address] 05/15/2024 Gay Enciso [facility] [place] [address] 06/16/2024Pamela AlvaromerHypertension P89PouhcrdMontrose Memorial Hospital[address] [place] [address]/03/2025Pamela BrittMont[facility] [place] [address]/10/2024Pamela BrittMont[facility] [place] [address]/Pafrancesco EncisoPre-diabetes R73.03[facility] [place] [address]/07/2024Pamela [facility] [place] [address] 09/01/2024Pamela CramerAnxiety F41.9BSt. [facility] [place] [address]/Pamela CramerAnxiety F41.9 and Diarrhea R19.7BSt. [facility] [place] [address]/Pamela [facility] [place] [address]/Pamela [facility] [place] [address]/08/2024Pamela [facility] [place] [address] 10/26/2024Pamela [facility]ramerUC[facility] [place] [address]/01/2025Pamela CramerThrush B37.0[facility] [address] [place] [address]/Pamela [facility] [place] [address]/ Víctor HoyThrush B37.0 and Anxiety F41.9BSt. [facility] [place] [address]/Pamela CramerAnxiety F41.9BSt. [facility] [place] [address]/ Gay [facility] [place] [address]/Pamela Lexyw pain R68.84[facility] [address] [place] [address]/07/2024Pamelbryce JohnRegency Hospital [facility]-diabetes R73.03 and Encounter for long-term current use of medication Z79.[address] [place], [place] [address] [place] [address]/10/2024 Gay EncisoUC[facility] [place] [address]/11/2024Pamela CramerElevated lactic acid level R79.89[facility] [place] [address]/11/2024Pamela CramerElevated lactic acid level R79.89[facility] [place] [address]/01/2025[facility]bryce [facility] [place] [address]/Pa[facility] [place] [address]/Pamohawk valley general hospitala [facility] [place] [address]/[facility] [place] [address]/PaUnity[facility] [place] [address] 03/08/2025PaThe [facility] [place] [address]/Pa[facility] [address] [place] [address]/[facility] [place] [address]/ Gay EncisoUCHealth [facility] Hospital[address] [place] [address]/08/2024Pamela [facility] [place] [address]/Doug HoyType 2 diabetes mellitus E11.9 [address] [place] [address] 04/26/2025Pamela [facility] [place] [place], [place] [address]/02/2025Pamela [facility] [place] [address]/04/2025Pamela CramerSOB (shortness of breath) on exertion R06.02[address] [place] [address]/06/2024Pamela CramerDiarrhea R19.7 ; GERD (gastroesophageal reflux disease) K21.9 and Generalized enlarged lymph nodes R59.1BBenjamin [address] [place] [address]/Pamela CramerRib pain on right side R07.81 ; Jaw pain R68.84 and Generalized enlarged lymph nodes R59.1BBenjamin [address] [place] [address] 02/26/2025Pamela CramerElevated lactic acid level R79.89 and Type 2 diabetes mellitus E11.9BBenjamin [address] [place] [address]/Pamela CramerPilonidal cyst with abscess L05.[address] [address]/04/2025 Gay CramerGERD (gastroesophageal reflux disease) K21.9 ; Type 2 diabetes mellitus E11.9 ; SOB (shortness of breath) on exertion R06.02 and Hypertension W41DgnxxdjMichael [address] [place] [address] 07/04/2024Pamela CramerPre-diabetes R73.03 and Thrush B37.0 Assessments Encounter Date Diagnosis (ICD Code) Assessment Notes Treatment Notes Treatment Clinical Notes Section Notes 05/15/2024 Enlarged lymph nodes (ICD-10 - R 59.9) 05/15/2024. difficile diarrhea (ICD-10 - A04.72) hx of [...] WBC count (ICD-10 - D72.829)10/23/2024Diarrhea (ICD-10 - R19.7)02/26/2025 Elevated lactic acid level (ICD-10 - R79.89)02/26/2025Type 2 diabetes mellitus (ICD-10 - E11.9)03/08/2025Elevated lactic acid level (ICD-10 - R79.89) patient [...] recently restarted trulicity 03/08/2025Pilonidal abscess (ICD-10 - L05.01)03/05/2025Pilonidal cyst with abscess (ICD-10 - L05.01) fu Kulwant, if needs ID referral Jennifer Shultz on Keflex currently continue monitor 05/04/2025GERD (gastroesophageal reflux disease) (ICD-10 - K21.9)05/04/2025Type 2 diabetes mellitus (ICD-10 - E11.9)06/16/2024Hypertension (ICD-10 - I10) 08/16/2024Pre-diabetes (ICD-10 - R73.03)09/01/2024nxiety (ICD-10 - F41.9) 10/06/2024nxiety (ICD-10 - F41.9)01/08/2025Rib pain on right side (ICD-10 - R07.81)01/08/2025Jaw pain (ICD-10 - R68.84)10/30/2024Thrush (ICD-10 - B37.0) 11/06/2024Thrush (ICD-10 - B37.0)12/05/2024nxiety (ICD-10 - F41.9)02/09/2025Jaw pain (ICD-10 - R68.84)02/23/2025Pre-diabetes (ICD-10 - R73.03)02/23/2025 Encounter for long-term current use of medication (ICD-10 - Z79.899)02/27/2025 Elevated lactic acid level (ICD-10 - R79.89)02/27/2025Elevated lactic acid level (ICD-10 - R79.89)04/18/2025Type 2 diabetes mellitus (ICD-10 - E11.9)05/04/2025 SOB (shortness of breath) on exertion (ICD-10 - R06.02)11/06/2024nxiety (ICD-10 - F41.9)01/08/2025Generalized enlarged lymph nodes (ICD-10 - R59.1)10/06/2024 Diarrhea (ICD-10 - R19.7)05/04/2025SOB (shortness of breath) on exertion (ICD-10 - R06.02)stress test?03/08/2025Type 2 diabetes mellitus (ICD-10 - E11.9)restart osvujuyyk03/02/2025GERD (gastroesophageal reflux disease) (ICD-10 - K21.9) 10/23/2024Generalized enlarged lymph nodes (ICD-10 - R59.1)05/04/2025 Hypertension (ICD-10 - I10) Plan Of Treatment Pending Test Test Name Order Date CMP (COMPLETE METABOLIC PANEL) CMP (COMPLETE METABOLIC PANEL) UA (URINALYSIS, COMPLETE) 03/08/2025 CULTURE, STOOL 10/23/2024 HEMOGLOBIN A1C (GLYCO) 06/24/2023 HEMOGLOBIN A1C (GLYCO) 07/27/2024 IRON, TOTAL 07/27/2024 LIPID PANEL (CHOL/TRIG/HDL/LDL) 07/28/19 CBC WITH DIFF (03/2025) 07/27/2024 CBC WITH DIFF (03/2025) 01/03/2024 CBC WITH DIFF (03/2025) 05/15/2024 CBC WITH DIFF (03/2025) 06/24/2023 UA (REFLEX URINALYSIS TO CULTURE) 2023 VITAMIN [...] STOOL 07/20/2023 C DIFF TOX PCR STOOL 12/20/2023 C DIFF TOX PCR STOOL 09/08/2023 C DIFF TOX PCR STOOL 10/06/2024 CMP [...] PANEL (T4/TSH/FREE T3) CT angio chest 12/08/2023 *CARDIO Stress Test - Lexiscan Nuclear 1 07/05/2024 CMP (COMP MET ONEIL) w/eGFR CKD-EPI 2024 Insurance Providers Payer Name Payer Address Payer Phone Subscriber Number Group Number Insured Name Patient Relationship to Insured Coverage Start Date Coverage End Date [employer] [place] [employer] [address] [place] [address] [id number] Ro Paniaguaelf - patient is the insured Medical (General) History Medical History History ICD Code Chronic fatigue 780.79 Anxiety F41.9 Cervical lymphadenopathy R59.0 GERD (gastroesophageal reflux disease) K 21.9 Hypercholesterolemia E78.00 Hyperlipidemia E78.5 Lupus M32.9 Tachycardia R00.0 Prediabetes R73.09 Hypertension I10 Surgical History Surgery Date(Month/Year) lymph node biopsy 2020 Pynonidal Cyst 02/2025
[2025-05-06 00:53] LABS: Hematocrit 42.3 % (36.0-48.0); Hemoglobin 13.9 g/dL (12.0-16.0); Immature Granulocytes Abs Auto 0.19 10^3/uL (0.00-0.03); Immature Granulocytes Pct Auto 1.3 % (0.0-0.5); Lymphocytes Absolute Auto 1.8 10^3/uL (1.2-3.8); Mean Corpuscular HGB Conc 32.9 g/dL (29.9-35.2); Mean Corpuscular Hemoglobin 31.4 pg (26.7-34.0); Mean Corpuscular Volume 95.5 fL (81.0-99.0); Platelet Count 283 10^3/uL (150-450); Red Blood Count 4.43 10^6/uL (4.20-5.40); White Blood Count 14.1 10^3/uL (4.0-11.0)
[2025-05-06 01:08] LABS: Alanine Aminotransferase 31 U/L (14-59); Albumin Globulin Ratio 0.8; Albumin Level 3.3 g/dL (3.4-5.0); Alkaline Phosphatase 70 U/L (46-116); Anion Gap 11.3; Aspartate Amino Transferase <5 U/L (15-37); Blood Urea Nitrogen 15.0 mg/dL (7.0-18.0); Calcium 9.3 mg/dL (8.5-10.1); Carbon Dioxide 25.5 mmol/L (21.0-32.0); Chloride 101 mmol/L (98-107); Estimated GFR (African America >60 (>=60 mL/min/1.73m^2); Estimated GFR (Non-African Ame >60 (>=60 mL/min/1.73m^2); Globulin 4.3 g/dL; Glucose 189 mg/dL (74-106); Potassium 3.8 mmol/L (3.5-5.1); Sodium 134 mmol/L (136-145); Total Protein 7.6 g/dL (6.4-8.2)
[2025-05-06 01:15] LABS: NT Pro B Type Natriuretic Pept 32.0 pg/mL (<=450.0)
--- NOTE | 2025-05-06 02:59 | ED.GENADUL1 ---
HPI HPI - General Adult General Chief complaint: Chest Pain Stated complaint: CHEST PAIN, SOB Time Seen by Provider: 05/05/25 23:57 Source: patient Mode of arrival: walk-in Limitations: no limitations History of Present Illness HPI narrative: Patient is a 44-year-old female presenting to the emergency department for evaluation of shortness of breath. Patient states that over the last week she has been having progressively worsening shortness of breath with exertion. She states that at rest and at nighttime her symptoms actually improved. Additionally, the patient states she has a history of intermittent tachycardia. She was placed on metoprolol many months ago for this. However, she has recently needed an increased dose of her metoprolol as she has been having increased frequency of her tachycardic episodes. Her last dose of metoprolol was 4 hours prior to ED arrival. She denies any associated chest pain. She denies fevers, chills, or flulike symptoms. She denies history of DVT/PE. She has had no leg swelling, hemoptysis, recent immobilizations, or recent surgeries. She denies history of previous NV or history of heart failure. She does have a history of lupus, and recently started Trulicity for diabetes. Related Data Home Medications ?Medication ?Instructions ?Recorded ?Confirmed ergocalciferol (vitamin D2) 1,250 1,250 mcg PO .3 times weekly 12/18/22 03/03/25 mcg (50,000 unit) capsule folic acid 1 mg tablet 1 mg PO DAILY 12/18/22 03/03/25 hydroxychloroquine 200 mg tablet 200 mg PO BID 12/18/22 03/03/25 prednisone 10 mg tablet 10 mg PO DAILY 12/18/22 03/03/25 pregabalin 75 mg capsule 75 mg PO Q8H PRN pain 12/18/22 03/03/25 metoprolol tartrate 50 mg tablet 200 mg PO DAILY 07/07/23 03/03/25 duloxetine 20 mg capsule,delayed 20 mg PO DAILY 04/15/24 03/03/25 release chlorhexidine gluconate 4 % 1 applic topical DAILY 03/03/25 03/03/25 topical liquid (Hibiclens) clindamycin phosphate 1 % lotion 1 applic topical DAILY 03/03/25 03/03/25 clonazepam 0.5 mg tablet 0.5 mg PO Q12H PRN anxiety 03/03/25 03/03/25 dulaglutide 0.75 mg/0.5 mL 1.5 mg subcut .WEEKLY 03/03/25 03/03/25 subcutaneous [facility] fluocinonide 0.05 % topical topical 03/03/25 solution pantoprazole 40 mg tablet,delayed mg PO 03/03/25 release tacrolimus 0.1 % topical ointment topical 03/03/25 tretinoin 0.025 % topical cream applic topical 03/03/25 Previous Rx's ?Medication ?Instructions ?Recorded cephalexin 500 mg capsule 500 mg PO TID 10 days #30 caps 02/26/25 fidaxomicin 200 mg tablet 200 mg PO BID 10 days #20 tabs 02/26/25 Allergies Allergy/AdvReac Type Severity Reaction Status Date / Time clindamycin Allergy Mild Unknown Verified 05/05/25 23:54 sulfamethoxazole (From Allergy Unknown Verified 05/05/25 23:54 Sulfamethoxazole-Trimethoprim) trimethoprim (From Allergy Unknown Verified 05/05/25 23:54 Sulfamethoxazole-Trimethoprim) Bactrim Allergy Intermediate Unknown Uncoded 05/05/25 23:54 Opioid HPI Opioid Management Most Recent Opioid Data: Last Pain Scale 4 05/05/25, 23:55 Review of Systems ROS Status of ROS 10 or more systems reviewed and unremarkable except as noted in history and below [facility] Social History Smoking status: Current every day smoker Little interest or pleasure in doing things: not at all Feeling down, depressed, or hopeless: not at all Exam Narrative Exam Narrative: CONSTITUTIONAL: Well-appearing, answering questions and following commands appropriately SKIN: Was warm and dry. EYES: Sclerae white. EARS, NOSE, THROAT: Moist oral mucosa. RESPIRATORY: Clear to auscultation bilaterally, no wheezes, crackles, or stridor, no use of accessory muscles CARDIOVASCULAR: Normal rate and regular rhythm. There is no S3, S4, murmur, rub. GASTROINTESTINAL: Abdomen is soft, nontender, nondistended. MUSCULOSKELETAL: No peripheral edema. NEUROLOGIC: Patient is awake and alert. Facies were symmetrical. Constitutional Vital Signs, click to edit/add: Last Vital Signs Temp 98.1 F 05/05/25 23:55 Pulse 81 05/06/25 04:10 Resp 24 H 05/06/25 04:10 BP 119/79 05/06/25 03:31 Pulse Ox 97 05/06/25 04:10 O2 Del Method Room Air 05/05/25 23:55 Course Vital Signs Vital signs: Vital Signs Temperature 98.1 F 05/05/25 23:55 Pulse Rate 95 H 05/05/25 23:55 Respiratory Rate 19 05/05/25 23:55 Blood Pressure 138/90 05/05/25 23:55 Pulse Oximetry 98 05/05/25 23:55 Oxygen Delivery Method Room Air 05/05/25 23:55 Temperature 98.1 F 05/05/25 23:55 Pulse Rate 81 05/06/25 04:10 Respiratory Rate 24 H 05/06/25 04:10 Blood Pressure 119/79 05/06/25 03:31 Pulse Oximetry 97 05/06/25 04:10 Oxygen Delivery Method Room Air 05/05/25 23:55 Medical Decision Making MDM Narrative Medical decision making narrative: Patient is a 44-year-old female presenting to the emergency department for 1 week history of exertional dyspnea. Her vital signs on arrival are within normal limits. She is afebrile and hemodynamically stable. She is saturating 98% on room air with clear breath sounds bilaterally. She has a normal physical examination otherwise. Differential diagnosis includes ACS, arrhythmia, pneumothorax, pneumonia, CHF, PE, deconditioning, symptomatic anemia, or other electrolyte/metabolic derangement. I did consider pericardial effusion given her history of SLE, however there is only trace pericardial fluid on bedside ihwyj-bg-zlsh ultrasound. She has normal ejection fraction and no evidence of RV dilation. IV was established and laboratory studies were obtained. CT angiogram of the chest was ordered. Laboratory studies were unremarkable. No significant electrolyte or metabolic derangement. No evidence of acute kidney injury. Mild leukocytosis. No anemia or thrombocytopenia. No transaminitis or hyperbilirubinemia. Troponin and BNP nonelevated. 12 Lead EKG: Normal sinus rhythm at a rate of 82. Normal axis. No ST segment elevations. QRS, [place], and QTc interval within normal limits. Final impression: normal sinus rhythm without evidence of acute myocardial ischemia CT angiography of the chest independently reviewed and interpreted by myself and radiology demonstrated no acute cardiopulmonary process. I do believe the patient is stable for discharge. They were instructed to follow up with her PCP for further care. Return precautions were given including any new or worsening symptoms. Patient understands and agrees to the plan. FINAL IMPRESSION: #Acute dyspnea DISPOSITION: Discharged home CONDITION: Good Lab Data Lab results reviewed: Yes I reviewed the patient's lab results Labs: Lab Results 05/06/25 Range/Units 00:44 WBC 14.1 H (4.0-11.0) 10^3/uL RBC 4.43 (4.20-5.40) 10^6/uL Hgb 13.9 (12.0-16.0) g/dL Hct 42.3 (36.0-48.0) % MCV 95.5 (81.0-99.0) fL MCH 31.4 (26.7-34.0) pg MCHC 32.9 (29.9-35.2) g/dL RDW 14.3 (11.0-15.0) % Plt Count 283 (150-450) 10^3/uL MPV 9.9 (9.5-13.5) fL Neut % (Auto) 78.6 H (43.0-75.0) % Lymph % (Auto) 12.5 L (20.5-60.0) % [place] % (Auto) 6.4 (1.7-12.0) % Eos % (Auto) 0.8 L (0.9-7.0) % Baso % (Auto) 0.4 (0.2-2.0) % Neut # (Auto) 11.1 H (1.4-6.5) 10^3/uL Lymph # (Auto) 1.8 (1.2-3.8) 10^3/uL [place] # (Auto) 0.9 H (0.3-0.8) 10^3/uL Eos # (Auto) 0.1 (0.0-0.7) 10^3/uL Baso # (Auto) 0.1 (0.0-0.1) 10^3/uL Abs Immat Gran (auto) 0.19 H (0.00-0.03) 10^3/uL Imm/Tot Granulo (auto) 1.3 H (0.0-0.5) % Sodium 134 L (136-145) mmol/L Potassium 3.8 (3.5-5.1) mmol/L Chloride 101 (98-107) mmol/L Carbon Dioxide 25.5 (21.0-32.0) mmol/L Anion Gap 11.3 BUN 15.0 (7.0-18.0) mg/dL Creatinine 0.77 (0.55-1.02) mg/dL Est GFR ( Amer) >60 (>=60 mL/min/1.73m^2) Est GFR (Non-Af Amer) >60 (>=60 mL/min/1.73m^2) BUN/Creatinine Ratio 19.5 Glucose 189 H (74-106) mg/dL Calcium 9.3 (8.5-10.1) mg/dL Total Bilirubin 0.2 (0.2-1.0) mg/dL AST <5 L (15-37) U/L ALT 31 (14-59) U/L Alkaline Phosphatase 70 (46-116) U/L Troponin I High Sens 12.6 (4.0-51.3) pg/mL NT-Pro-B Natriuret Pep 32.0 (<=450.0) pg/mL Total Protein 7.6 (6.4-8.2) g/dL Albumin 3.3 L (3.4-5.0) g/dL Globulin 4.3 g/dL Albumin/Globulin Ratio 0.[address] scan - chest: Attestation: I personally reviewed and interpreted this imaging study as follows: ECG Data Attestation: I personally reviewed and interpreted this ECG as follows: Discharge Plan Discharge Chief Complaint: Chest Pain Clinical Impression: Acute dyspnea Patient Disposition: Home, Self-Care Time of Disposition Decision: 04:23 Condition: Good Mode of Transportation: Private Vehicle Prescriptions / Home Meds: No Action ergocalciferol (vitamin D2) 1,250 mcg (50,000 unit) capsule 1,250 mcg PO .3 times weekly folic acid 1 mg tablet 1 mg PO DAILY hydroxychloroquine 200 mg tablet 200 mg PO BID prednisone 10 mg tablet 10 mg PO DAILY pregabalin 75 mg capsule 75 mg PO Q8H PRN (Reason: pain) metoprolol tartrate 50 mg tablet 200 mg PO DAILY duloxetine 20 mg capsule,delayed release(DR/EC) 20 mg PO DAILY fidaxomicin 200 mg tablet 200 mg PO BID 10 Days Qty: 20 0RF cephalexin 500 mg capsule 500 mg PO TID 10 Days Qty: 30 0RF chlorhexidine gluconate [Hibiclens] 4 % liquid 1 applic TOPICAL DAILY clindamycin phosphate 1 % lotion 1 applic TOPICAL DAILY clonazepam 0.5 mg tablet 0.5 mg PO Q12H PRN (Reason: anxiety) tretinoin 0.025 % cream TOPICAL pantoprazole 40 mg tablet,delayed release (DR/EC) PO tacrolimus 0.1 % ointment TOPICAL fluocinonide 0.05 % solution TOPICAL Trulicity 0.75 mg/0.5 mL pen injector 1.5 mg SUBCUT .WEEKLY Print Language: Hungarian Instructions: Dyspnea (ED) Referrals: SAMSON ENCISO [Primary Care Provider, Family Practice] - 1 week
== END 2025-05-06 04:30 | disposition home or self-care (01) ==
PROVIDERS: Emergency Provider Student in an Organized Health Care Education/Training Program; PCP Nurse Practitioner Family
DX: R06.00 Dyspnea, unspecified (principal); E11.9 Type 2 diabetes mellitus without complications; Z79.85 Long-term (current) use of injectable non-insulin antidiabetic drugs; R00.0 Tachycardia, unspecified; Z79.899 Other long term (current) drug therapy; F17.200 Nicotine dependence, unspecified, uncomplicated; M32.9 Systemic lupus erythematosus, unspecified
CPT/HCPCS: 36415; 71275; 80053; 83880; 84484; 85025; 93005; 99285; Q9967

== ENCOUNTER 2025-05-19 05:15 | Emergency (ER) | payer OTHER, SELFPAY ==
--- OUTSIDE RECORDS SUMMARY | 2025-05-12 09:00 | XMS_ITS | Encounter Summary ---
Author Organization [facility] Address [address] [place] [id number] Care Team Providers Care Clinic Manager Name Role Phone Manuel Klein MD Unavailable [phone] Manuel Klein MD Primary Care Provider +-[phone] Manuel Klein MD Unavailable [phone] Source Comments In the event this information is protected by the Federal Confidentiality of Alcohol and Drug AbusePatient Records regulations: The Federal rules restrict any use of the information to criminally investigate or prosecute any alcohol or drug abuse patient.[facility] Reason for Visit * ReasonCommentsSLEOsteoarthritis Encounter Details DateTypeDepartmentCare Team (Latest Contact Info)Xnyurmrdcmg13/20/2025 9:[address] 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 Last address used for z[address]muolezedl[address]3CommentsNoSex and Gender InformationValueDate RecordedSex Assigned at BirthNot on fileLegal SexFemale 05/31/2014 2:51 PM ESTGender IdentityNot on fileSexual OrientationNot on file documented as of this encounter Functional Status * Are you deaf or do you have serious difficulty hearing?AnswerDate of MdnxcpmwenUhyglhRk11/04/2015 11:14 AM Chichi Stevens Ma * Are you blind or do you have serious difficulty seeing, even when wearing glasses?AnswerDate of LoksruodjmCribjtZk26/04/2015 11:14 AM Chichi Stevens Ma * Do you have serious difficulty walking or climbing stairs?AnswerDate of SbxensorolFzaozxBsm92/04/2015 11:14 AM Chichi Stevens Ma * Do you have difficulty dressing or bathing?AnswerDate of AssessmentAuthorYes 12/25/2014 11:14 AM Chichi Stevens Ma * Because of a physical, mental, or emotional condition, do you have difficulty doing errands alone such as visiting a doctor's office or shopping?AnswerDate of BqyicqvrokKoyfofHu95/04/2015 11:14 AM Chichi Stevens Ma documented as of this encounter Mental Status * Because of a physical, mental, or emotional condition, do you have serious difficulty concentrating, remembering, or making decisions?AnswerEntry Date BzknjpJi48/04/2015 11:14 AM Hilda Oakley Chichi documented in this encounter Progress Notes * Sandra Park MD - 05/12/2025 9:00 AM EST THIS IS A AMBULATORY VIRTUAL VISIT Patient [...] visit. Either the patient or their legal authorization representative has been informed of the risks and benefits of -- and alternatives to -- treatment through a remote evaluation andconsents to proceed with the evaluation remotely. It required patient-provider interaction for the medical decision making as documented below. Persons Present: self (in home) Provider: (in office) VIRTUAL VISIT Follow up for:osteoarthritis/low vitamin D/b12/ +CHRISTIAN/high esr/+tumid lupus biopsy Today's visit 05/12/25:labs due 06/2025. taking plaquenil 2tabs daily, motrin 600mg, tylenol, azathioprine 3tabs daily, benlysta IV (6 so far) better than weekly sq injection, getting IVIG every 3weeks, vitamin D script, off and on lyrica 75mg for burning pain in back, lopressor, protonix, prednisone 10mg daily (had increase a few times a year). due eye exam, last visit no medication toxicity. Arms rash improved with plaquenil. Red rash on chest, saw derm. On trulicity for new diabetes diagnosed, and now has high HR and Shortness of Breath, now on zyrtec and inhalers and PPI. Thus, holding trulicity to see high HR and Shortness of Breath is related. Thrush in mouth once 1-2months, no other sores, on nystatin. Raynauds better with warmer weather, no digital ulcers. 04/11/25 high glucose 227, wbc 13.89;low vitamin D 22;normal rest of cmp, cbc, crp 0.4; 01/11/25 high glucose 221, alt 42, wbc 12.61, esr 34;normal rest of cbc, cmp, crp <0.3, vitamin D32.2, vitamin b12-710;negative hepatitis panel, quantiferon tb; 50-60% improvement from benlysta, worse pain 1week prior to infusion and more pain 1week prior to infusion. Has less stiffness with benlysta. limited exercise due to pain. Feet if standing longtime noticed some swelling. Hands occasionally sore when in a flare. Better with increased prednisone. A bd discomfort, due to imaging, found fatty liver. Skipped benlysta due to pilonidal cyst/high lactic a jasiel. Chronic current pain in back/hip, better with radiofrequency ablation and steroid injections. Numb hips afterwards. Reports pain /10. Has minimal AM stiffness. Feels safe at home. Has enough food, supplies and medications. Overall mildly uncomfortable but happy with rheum care. No falls/fx/tra olinda/illness/oral sores/rash/hairloss/jaw pain/dysphagia/epistaxis/hemoptysis since last visit. No adverse effects with meds. No other complaints. Patient denies fever, chills, cp, dyspnea, nausea, vomiting, night sweats, scalp tenderness, visual changes, hernandez, bowel/bladder changes, weight changes orother complaints. 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 Did fine with last [...] easures, may consider osteoporosis treatment if on [facility] steroids/abnormal bmd, take vitamin D script once [...] hair loss lately. Due eye exam. Onprednisone 2-3months ago 5-10mg daily from . original skin changes from biopsy improved with p laquenil. Steroids improved rest of skin except red [...] but happy with rheum care. No falls/fx/trauma/illness/oral sore s/rash/hairloss/jaw pain/dysphagia/epistaxis/hemoptysis since last visit. No adverse effects [...] Due for eye exam. Labs sent to media/completed in 06/2021 (no results faxed to office, but patient pulled up results on her phone). Chronic current pain in neck, flank area, mid back, knees, legs, arms, all over pain. Better with lyrica 75mg 3times a day. Reports pain -12/31. Couple hrs AM stiffness. COVID vaccine [employer] 09/28/20, 10/19/20, 05/26/21. Feels safe at home. [...] care, start plaquenil/notify office if not tolerated, startphotoprotection, see ophthalmology, see spine clinic, see derm, start prn heat/ice/otc arthritis cre ams, low impact weightbearing exercise as tolerated, avoid aggravating triggers March 05, 2021 SUBJECTIVE Ms. Paniagua is a 40 year old female who [...] pain: yes H/o precedent/frequent infection(s): as above Enthesopathy/[place]'s/heel/plantar tenderness: hands random painful/tingling Skin thickening, psoriasis, [...] COVID-19 original vaccine, age 12+ yr, monovalent ([employer] - PURPLE TOP) 09/28/2020 10/19/2020 05/26/2021 COVID-19 vaccine, age 12+ yr ([employer] COMIRNATY) 02/23/2023 COVID-19 vaccine, age 12+ yr, bivalent ([employer]) 02/08/2022 Pneumovax no Flu shot no Tetanus [...] etoh no No gout MEDICATIONS: reviewed medlist 05/12/25 Calcium no Vitamin D script CURRENT ALLERGIES: Allergies As of Date: 05/12/2025 Allergen Noted Reaction BACTRIM [SULFAMETHOXAZOLE] 05/31/2014 Other: See Comments CODEINE 05/31/2014 Other: See Comments OMEPRAZOLE 03/08/2024 Other: See Comments PANTOPRAZOLE 03/08/2024 Other: See Comments CLINDAMYCIN 03/04/2022 Unknown DOXYCYCLINE 01/19/2022 Other: See Comments LATEX 05/31/2014 Rash SULFAMETHOXAZOLE-TRIMETHOPRIM 03/04/2022 Swelling TRIMETHOPRIM 01/19/2022 Other: See Comments Fully Assessed 05/11/2025 TESTS:All Diagnostic tests reviewed for today's visit: 04/11/25 high glucose 227, wbc 13.89;low vitamin D 22;normal rest of cmp, cbc, crp 0.4; 01/11/25 high glucose 221, alt 42, wbc 12.61, esr 34;normal rest of cbc, cmp, crp <0.3, vitamin D32.2, vitamin b12-710;negative hepatitis panel, quantiferon tb; 10/02/24 high alt 41, glucose 216, esr [...] (33);NL cbc, cmp, negative hla b27; Outside [place] 06/2021 low vitamin D 16, vitamin b12-307;high [...] pain LIMITATION of Motion of Joints: yes IMPRESSION/DIAGNOSIS:05/12/25 M32.19 Other systemic lupus erythematosus with other organ involvement (HCC) (primary encounter diagnosis) R76.89 CHRISTIAN positive R70.0 Elevated sed rate E55.9 Vitamin D deficiency 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 M79.7 Fibromyalgia E53.8 Vitamin B12 deficiency M54.42, M54.41, G89.29 Chronic bilateral low back pain with bilateral sciatica Z79.899 Long-term use of high-risk medication Z79.52 long-term current use of systemic steroids M79.641, M79.642 Bilateral hand pain I73.00 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 Ms. Paniagua is a 44 year old female with [...] several weeks due to two boils/HS, C.diff, Recently tested +C.diff with recent increased diarrhea, [...] Whole body feels very heavy and stiff. Less fevers with IV benlysta vs sq [...] quantiferon tb; 50% improvement from IV benlysta. Now, labs due 06/2025. taking plaquenil 2tabs daily, motrin 600mg, tylenol, azathioprine 3tabs daily, benlysta IV (6 so far) better than weekly sq injection, getting IVIG every 3weeks, vitamin D script, off and on lyrica 75mg for burning pain in back, lopressor, protonix, prednisone 10mg daily (had increa se a few times a year). due eye exam, last visit no medication toxicity. Arms rash improved with plaquenil. Red rash on chest, saw derm. On trulicity for new diabetes diagnosed, and now has high HR and Shortness of Breath, now on zyrtec and inhalers and PPI. Thus, holding trulicity to see high HR and Shortness of Breath is related. Thrush in mouth once 1-2months, no other sores, on nystatin. Raynauds better with warmer weather, no digital ulcers. 04/11/25 high glucose 227, wbc 13.89;low vitamin D 22;normal rest of cmp, cbc, crp 0.4; 01/11/25 high glucose 221, alt 42, wbc 12.61, esr 34;normal rest of cbc, cmp, crp <0.3, vitamin D32.2, vitamin b12-710;negative hepatitis panel, quantiferon tb; 50-60% improvement from benlysta, worse pain 1week prior to infusion and more pain 1week prior to infusion. Has less stiffness with benlysta. limited exercise due to pain. Feet if standing longtime noticed some swelling. Hands occasionally sore when in a flare. Better with increased prednisone. A bd discomfort, due to imaging, found fatty liver. Skipped benlysta due to pilonidal cyst/high lactic acid. Chronic current pain in back/hip, better with radiofrequency ablation and steroid injections. Numb hips afterwards. Reports pain 6/10. Has minimal AM stiffness. Feels safe at home. Has enough food, supplies and medications. Overall mildly uncomfortable but happy with rheum care. Will complete workup for reported symptoms = supportive care, see ID for recurrent thrush while on prednisone/better with nystatin/NO infection now, check labs in 3months, see vascular, see GI, tolerating azathioprine 3tabs daily (hold during infection), improved with benlysta IV every 4weeks(hold during infection/patient requesting extra bagof NS), start raynauds general measures, may consider osteoporosis treatment if on [facility] steroids/abnormal bmd, take vitamin D script once [...] 10/07/24 SLAQ 22;10/05/23 SLAQ 15;02/04/23 SLAQ 24;Modified 05/12/25 KRISTEN 0, pain 60%;10/07/24 KRISTEN 0, pain 80%;03/18/24 KRISTEN 1, pain 50-60%;10/05/23 KRISTEN 0, pain 50%;02/04/23 KRISTEN 0, pain 60%;06/15/22 KRISTEN 0, pain60%;10/24/21 KRISTEN 0, pain 40- 80%;March 05, 2021 KRISTEN 0, pain 20-70%; May [...] (200mg) daily with a meal Please see teachers assistant every 6-12months while on Hydroxychloroquine. reStart azathioprine [...] touching your toes, sit-ups, using row machine [facility] pain recommendations per primary care provider/pain clinic [...] I spent a total of 30 minutes 8:51-9:21AM on the date of the service in addition to 10-15min preparing to talk with the patient, video & audio (virtual) or phone or [id number] patient care, completing clinical documentation, obtaining and/or reviewing separately obtained history, performing a medically appropriate examination, counseling and educating the patient/family/caregiver, ordering medications, tests, or procedures, communicating with other HCPs (not separately reported), independently interpreting results (not separatelyreported), communicating results to the patient/family/caregiver and care coordination (not separately reported) Follow up 4-6months, earlier if needed Recommendations to share with referring physician/Primary care physician : Dear Dr.Douglas Sai Klein MD and Gay De La Torre CNP: I had the pleasure of seeing your patient, Ariadna Paniagua. I have enclosed a copy of my [...] participate in the care of your patient. Sandra Park MD I will relay my findings and recommendations to the physician requesting the consult by letter/electronic shared medical records. cc Gay De La Torre, TRUE;Dr.Douglas Sai Klein MD [facility] AMBULATORY VISIT INTAKE QUESTIONNAIRE Question 05/11/2025 11:34 AM EST - Filed by Patient 04/08/2025 3:40 PM EST - Filed by Patient 03/19/2025 8:51 PM EST - Filed by Patient Has the Patient Had 2 Falls in the Last Year or 1 Fall with Injury or Currently Using an AmbulatoryAssistive Device (Walker, Cane, Wheelchair, Crutches, etc.) No No Yes, Patient High Risk for Falls,Notify provider if applicable Are you having pain associated with your visit today? Yes Yes No What is your Pain Level? 4 5 Pain Location Other: See Comment Other: See Comment Description Bloating Aching Pressure Bloating Sore Burning Stiffness Stiffness Duration Amount of Time 24 Duration Units Years Years Frequency Intermittent Continuous Intervention/Comfort measure Medication Medication Reposition Reposition Relaxation Relaxation Cold Cold Heat Distractions Massage Heat Pillow support Positioning Positioning Comments Just pain usually have from lupus and everything else documented in this encounter Plan of Treatment DateTypeDepartmentCare Team (Latest Contact Info)Aupvbpftizk31/31/2025 9:00 AM [facility] [address] [place] [address] IVIG Q 3 WEEKS05/31/2025 2:00 PM ESTInfusion Center Hematology/Oncology [address] [place] [address] BENLYSTA -06/13/2025 8:45 AM ESTOffice Visit [facility] [address] [place] [address] 12 week follow up IVIG06/13/2025 9:00 AM ESTVisit (SP) Office Hematology/Oncology [address] [place] [address] Fara Lopez, BEAUTY PARLOR CLEANER.WAREHOUSE ORDER SELECTOR [address] [place] [address] 12 week follow up IVIG06/13/2025 9:30 AM [facility] Hematology/Oncology [address] [place] [address] [place] [address] 12 week follow up IVIG06/28/2025 2:00 PM [facility] Hematology/Oncology [address] [place] [address] [place] [address] BENLYSTA -07/26/2025 2:00 PM [facility] Hematology/Oncology [address] [place] [address] [place] [address] BENLYSTA -documented as of this encounter Visit Diagnoses Diagnosis Other systemic lupus erythematosus with other organ involvement (HCC)- Primary CHRISTIAN positive Other and unspecified nonspecific immunological findings Elevated sed rate Elevated sedimentation rate Vitamin D deficiency Unspecified vitamin D deficiency Secondary osteoarthritis of multiple sites Osteoarthrosis involving, or with mention of more than one site, but not specified as generalized, multiple sites Fibromyalgia Mylagia and myositis, unspecified Vitamin B12 deficiency Other B-complex deficiencies Chronic bilateral low back pain with bilateral sciatica Long-term use of high-risk medication long-term current use of systemic steroids Encounter for long-term (current) use of steroids Bilateral hand pain Pain in limb Raynaud's disease without gangrene documented in this encounter Care Teams Team MemberRelationshipSpecialtyStart DateEnd Date Manuel Klein MD PCP - GeneralFamily Wzeigvie60/7/22 Manuel Klein MD ReferringFamily Medicine02/12/22 Manuel Klein MD [address] [place] [address] ReferringFamily Medicine07/06/24documented as of this encounter
--- OUTSIDE RECORDS SUMMARY | 2025-05-14 06:12 | XMS_ITS | Continuity of Care Document ---
Author Organization [facility] Address [address] [place] [address] Phone Care Team Providers Care Switch Operators Supervisor Name Role Phone Gay De La Torre NP-C Primary Care Provider Margie Arnett NP Attending Provider Mathew Ji MD Attending Provider Bandar Portillo APRN Attending Provider [phone] Terence Blum MD Attending Provider Jose Perez DO Attending Provider Gay De La Torre LEAD CASHIER-C Attending Provider Adolfo Kang MD Attending Provider NON STAFF Primary Care Provider [...] February 28, 2025Pafrancesco De La Torre , LEAD CASHIER-CPrimary Care ProviderActiveStart: February 28, 2025 End: February 28, 2025 Visit Care Team Team Status: Inactive Member Role/Relationship Status Dates Terence Blum MD Attending Provider Active Sta rt: March 02, 2025 End: March 02, 2025Pafrancesco De La Torre , LEAD CASHIER-CPrimary Care ProviderActiveStart: March 02, 2025 End: March 02, 2025 Visit Care Team Team Status: Inactive Member Role/Relationship Status Dates Jose Perez DO Attending Provider Active S tart: March 03, 2025 End: March 03, 2025 Visit Care Team Team Status: Inactive Member Role/Relationship Status Dates Gay De La Torre , LEAD CASHIER-C Attending Provider Active Start: March 09, 2025 End: March 09, 2025 Visit Care Team Team Status: Inactive Member Role/Relationship Status Dates Adolfo Kang MD Attending Provider Active Sta rt: March 13, 2025 End: March 13, 2025NON STAFFPrimary Care ProviderActiveStart: March 13, 2025 End: March 13, 2025 Visit Care Team Team Status: Inactive Member Role/Relationship Status Dates NON STAFF Primary Care Provider Active Start: April 13, 2025 End: April 13, 2025Luiz Gee ProviderActiveStart: April 13, 2025 End: April 13, 2025 Patient Care Team Team Status: Inactive Member Role/Relationship Status Dates NON STAFF Primary Care Provider Active Start: May 14, 2025 End: May 14, 2025Zarina Pickering ProviderActiveStart: May 14, 2025 End: May 14, 2025 Chief Complaint and Reason for Visit Chief Complaint Admit Date 2 week follow up after RFA January 9:23am Unknown February 26, 2025 7: 30pm 8 wk f/u-constipation/dyspepsia/abd. robb n February 28, 2025 1:29pm Pilonidal Cyst March 02, 2025 2 :46pm Unknown March 03, 2025 4 :14pm Unknown March 09, 2025 4 :38pm 6 week follow up after RFA/review imagin g March 13, 2025 8:50am 1 mo f/u-gerd/IBS/Fatty liver March 252024 9:49am low back pain May 14, 2025 10:26am Reason for Visit Admit Date Lumbosacral spondylosis February 14, 2025 9:23am Mid back pain February 14, 2025 9:23am Other chronic pain February 14, 2025 9:23am Sacroiliitis February 14, 2025 9:23am Abdominal pressure February 28, 2025 1: 29pm Dyspepsia February 28, 2025 1: 29pm Fatty liver February 28, 2025 1: 29pm GERD (gastroesophageal reflux disease) O ctober 2024 1:29pm Hip pain March 13, 2025 8 :50am Lumbosacral spondylosis March 13 8:50am Other chronic pain March 13, 2025 8 :50am Sacroiliitis March 13, 2025 8 :50am Fatty liver April 13, 2025 9:49am GERD (gastroesophageal reflux disease) N ovember 2024 9:49am Irritable bowel syndrome with constipati on April 13, 2025 9:49am Lumbosacral spondylosis May 14, 2 025 10:26am Other chronic pain May 14, 2025 10:26am Sacroiliitis May 14, 2025 10:26am Allergies, Adverse Reactions, Alerts Allergen Type Severity Reaction Last Updated Verified Status clindamycin Allergy Unknown Unknown Reaction Decembe r 2024 9:23am Yes Active sulfamethoxazole Allergy Unknown lymph swelling Dece mber 2024 9:23am Yes Active trimethoprim Allergy Unknown lymph swelling May 14, 2025 9:23am Yes Active Social History Smoking Status Status [...] us Mid back pain February 14, 2025 8:59am Unknown Active Duct ectasia of breast December 16, 2023 2:05pm Unknown Active C. difficile diarrhea September 22, 2023 1:39pm Unknown Active Recurrent Clostridioides dif ficile diarrhea October 20, 2023 12:33pm Unknown Active Nipple discharge in female December 16, 2023 2:04pm Unkn own Active Sacroiliitis January 28, 2024 10:54am Unknown Active Lupus October 20, 2023 7:38am Unknown Active Fatty liver February 28, 2025 3:31pm Unknown Act kaycee Abdominal mass December 12, 2024 10:12am Unknown Ac tive Diarrhea September 22, 2023 1:45pm Unknown Active Dyspepsia March 16, 2024 8:49am Unknown Ac tive Dyspepsia December 12, 2024 10:12am Unknown Acti ve Hyperlipidemia October 20, 2023 7:37am Unknown Acti ve Insulin resistance October 20, 2023 7:37am Unknown Active Abdominal burning sensation in left upper quadrant December 12, 2024 9:54am Unknown Active Lumbosacral spondylosis January 28, 2024 10:54am Un known Active Other chronic pain January 28, 2024 10:55am Unknown Active Bloating December 12, 2024 10:00am Unknown Acti ve Hip pain March 13, 2025 8:28am Unknown Ac tive Abdominal pressure September 22, 2023 1:45pm Unknown A ctive GERD (gastroesophageal reflux disease) September 22, 2023 1 :44pm Unknown Active Abdominal pain March 16, 2024 8:49am Unknown Active Abdominal pain December 12, 2024 10:00am Unknown Ac tive Irritable bowel syndrome wit h constipation April 13, 2025 9:53am Unknown Active Hypertension October 20, 2023 7:38am Unknown Active Constipation December 12, 2024 10:11am Unknown Acti ve Medications Medication Status Dose Units Route Directions Qty Days Refills S tart Date Stop Date End Date Reason(s) Instructions Adherence Pantoprazole 20 mg tablet,delayed release (DR/EC) Discontinued 2 0 MG PO Daily July 19, 2024 12:00amJune 2024 10:24amPantoprazole 20 mg tablet,delayed release (DR/EC)Forjon44NKMQZwjtr dailyJune 2024 10:24am Complies with drug therapyAcetaminophen (Acetaminophen Extra Strength) 500 mg bfbphdJfzogn0800WZAJXtsrs 6 hours as needed for painSeptember 2024 11:00pm Complies with drug therapyIbuprofen 400 mg bvxtmuChzcsx953GFKQ4-1 TIMES PER DAY as needed for painSeptember 2024 11:00pmComplies with drug therapy Alprazolam 0.25 mg tabletDiscontinued0.25MGPODaily as needed for anxietyMay 2023 11:00pmMarch 2024 3:04pmBelimumab (Benlysta) 200 mg/mL auto-fndkqkwzYbcdxsjxtper416JLDXRFTArsfpf weekMay 2023 11:00pmJune 2024 10:23amClobetasol 0.05 % ykhrybfMeydcf1ADLGHOUOWHHDYHe DirectedMay 2023 11:00pmComplies with drug therapyFluocinonide 0.05 % foxhmgdpEqnuiv0FSUTSS TOPICALDaily as needed for rashMay 2023 11:00pmComplies with drug therapy Hydroxychloroquine 200 mg mwzrbuPljccs354UYYETzszyKqi 2023 11:00pmComplies with drug therapyAzathioprine 50 mg goyhirQoyrfbcaqqdf89SKKHOdqaq times dailyMay 2023 11:00pmJune 2024 10:22amPravastatin 20 mg opsyggEybkzciwthry74 MGPODailyMay 2023 11:00pmMay 2023 12:08pmPrednisone 10 mg tablet Urgenb43FCCWJdagkKnb 2023 11:00pmComplies with drug therapyPregabalin 75 mg yoobwmmYnbgof200QNCSSzykp as needed for nerve painMay 2023 11:00pm Complies with drug therapyErgocalciferol (Vitamin D2) 1,250 mcg (50,000 unit) nyzkjvcRogzbkypwbjv35629OQRELFszckz weekOctober 19, 2023 11:00pmJune 2024 10:24amMetoprolol Tartrate 50 mg nwqryiTwhzao584VTONRmasfTyt 2023 11:00pm Complies with drug therapyFidaxomicin (Dificid) 200 mg wvsmedGpmculxcuuke609MQUF .every other dayOctober 19, 2023 11:00pmJuly 2023 1:11pmFidaxomicin (Dificid) 200 mg thvmygFhqnujtuxhen066XPVQZpmyx 12 kixja61769Ilq2023 11:00pmJuly 2023 1:11pmErgocalciferol (Vitamin D2) 1,250 mcg (50,000 unit) pxoypbvDmzvvv09786FEWNJQ4 Times a weekJun2024 10:23amComplies with drug therapyGentamicin 0.1 % umxxjosgWysgofnfmfzr6SNWQFDMKSLOPURkvln times kvmrp24217 November 21, 2023 11:00pmJuly 2023 1:12pmbelimumab (Benlysta)DiscontinuedIV every monthJun2024 11:00pmOctober 2024 8:07amCephalexin 500 mg frpeiymDxcknswanhmx627ZBWGGeeyk times dailyOct2024 11:00pmOctober 2024 8:07amDicyclomine 10 mg jpprllxCeeutmuktmuo46EKQRHjftk daily as needed for abdominal jvnn59077Mwfns 2023 11:00pmMay 2023 12:07pmTake 1 capsule orally twice a day prnPantoprazole 40 mg tablet,delayed release (DR/EC)Sdrdwfshpstj84YCIBUenyu852185Snoan 2023 11:00pmMay 2023 12:07pmTake 1 tablet orally once a day.Omeprazole 40 mg capsule,delayed release(DR/EC)Khznhmfzpwdv24EGPDSckvq08379Ufizewt 2023 11:00pmFebruary 2024 9:52amClonazepam (Klonopin) 0.5 mg tabletActive0.5MGPODailyMarch 2024 11:00pmComplies with drug therapyNystatin 100,000 unit/mL suspension Xtsdnztdqrnd6EHCSImfxpNsyzi 2024 11:00pmJuly 2024 9:49amswish and swallowThiamine Hcl (Vitamin B1) 100 mg iaveykKyyevm428NZODIisanRzbf 2024 11:00pmComplies with drug therapyFolic Acid 1 mg ogpphkDvqocz6SOWYOrbgcRgxs 2024 11:00pmComplies with drug therapyDuloxetine 20 mg capsule,delayed release(DR/EC)Jaqlfb29KAIGWwpnbJuny 2024 11:00pmComplies with drug therapy gammagardDiscontinuedIVJuly 2024 11:00pmJuly 2024 9:58amgammagard ActiveIVEVERY 4 WEEKSJuly 2024 9:58amComplies with drug therapy Immunizations Immunization Event Date Not Given Reason Dose Number Echocardiograph Tech Lot Number Reason(s) Given Vaccine Information Statement (VIS) Detail Administration Location COVID-19 mRNA, Comirnaty (Rock Content) September 28, 2020 COVID-19 mRNA, Comirnaty (Rock Content)October 19OVID-19 mRNA, Comirnaty (Rock Content) May 26OVID-19 mRNA Bivalent Booster (Pfizer)February 08, 2022 COVID-19 ([employer] Network) [id number] 12Y and olderOctober 2022 Procedures Procedure Date Performed Status Urine Culture March 03, 2025 completed Urine Culture March 09, 2025 completed Urine Culture February 26, 2025 completed Aerobic Culture March 02, 2025 completed Anaerobic Culture March 02, 2025 completed Gram Stain March 02, 2025 completed OR Pilonidal Cystectomy (Not Applicable) March 02, 2025 3:00pm completed Relevant Diagnostic Tests and/or Laboratory Data Microbiology Results Procedure Source Result Collection Date/Time Result Date/Time Result Comment Performing Site Urine Culture Urine bacilli - 2 Days February 7:30pm February 28, 2025 11:08am [facility] [id number] [address] [place] [address]Vasfl CultureUrine, Clean-Voided MidstreamCandida albicans March 03, 2025 4:14pmOctober 2024 10:41[facility] [id number] [address] [facility] [id number] CultureUrine, Clean-Voided Midstream2 DaysOct2024 4:38pmOctober 2024 10:00[facility] [id number] [address] [id number] CultureCoccyx, AbscessSerratia marcescensOct2024 5:17pmOctober 2024 9:14[facility] [id number] [address] [address]Wgxkgwkkd CultureCoccyx, AbscessPrevotella speciesOct2024 5:17pmOctober 2024 12:54pm[facility] [id number] [address] [id number] StainCoccyx, AbscessOctober 2024 5:17pmOctober 2024 2:17pm[facility] [id number] [address] [facility] [address] Vital Signs Vital Reading Result Reference Range Collection Date/Time Height 67 [in_i] February 14, 2025 8:42amHeart Rate65 /boe14-636Zmmmdvdxb 2024 8:42am Oxygen saturation by Pulse sfnlewzm64 %95-100Sept2024 8:42amBP Qfevoxzo525 mm[Hg]100-140September 2024 8:42amBP Pejcgqmcv03 mm[Hg]60-100 February 14, 2025 8:35alOateoj11 [in_i]February 28, 2025 12:23otSzqdha106.00 kgOctober 2024 12:34pmHeart Rate99 /upd04-138Kxjlfcn 8th, 2025 12:34pm Respiratory rate18 /qew54-11Czzvapg 8th, 2025 12:34pmOxygen saturation by Pulse tajpvokh50 %95-100Oct2024 12:34pmBP Aesxfrrt797 mm[Hg]100-140Oct2024 12:34pmBP Bnvrqjljm44 mm[Hg]60-100Oct2024 12:34pmBMI (Body Mass Index)43.8 kg/t1Xhtqoos2024 12:32qsPcfvwa52 [in_i]March 02, 2025 2:66xqRjvjsr131.27 kgOctober 2024 2:06pmBody Qbbsfwmeeut32.4 [degF] 97.6-99.0Oct2024 2:06pmHeart Rate84 /wmn60-809Njyairo 2024 4:29pmRespiratory rate16 /ord77-77Emnvgqz 10th, 2025 4:29pmOxygen saturation by Pulse uwizhagi19 %95-100October 2024 4:29pmBP Rggdrkkh828 mm[Hg]100-140 March 02, 2025 4:29pmBP Orplezdic54 mm[Hg]60-100October 2024 4:29pm Heart Rate82 /bsb51-411Pzgrcrt 2024 8:08amOxygen saturation by Pulse %95-100October 2024 8:08amBP Jscvewwr498 mm[Hg]100-140October 2024 8:08amBP Ubulstnbe54 mm[Hg]60-100October 2024 8:33mzGzvxps19 [in_i]April 13, 2025 9:53fzHgkxcy079.20 kgNov2024 9:53amHeart Rate75 /kbh44-371Xizquwdj 21st, 2025 9:53amBP Jpczcsql278 mm[Hg]100-140Nov2024 9:53amBP Plugjnacj62 mm[Hg]60-100Nov2024 9:53amBMI (Body Mass Index)44.6 kg/a5Yxceiylu2024 9:99wsEmcgxi34 [in_i]May 14, 2025 9:45oiVnkyfz542.27 kgDeceer 2024 9:22amHeart Rate80 /dfd38-955 May 14, 2025 9:22amRespiratory rate16 /ihi93-17Smunmpjx 2024 9:22am Oxygen saturation by Pulse %95-100December 2024 9:22amBP Mobzspdc657 mm[Hg]100-140December 2024 9:22amBP Baokchyyd54 mm[Hg]60-100 May 14, 2025 9:22amBMI (Body Mass Index)44.6 kg/v1Rgezfung 2024 9:22am Advance Directives Advance Directive Response Recorded Date/ Time Advance Directives No September 17 1:40pm Insurance Providers Guarantor Ariadna Paniagua Address [address] [facility] [id number] Info.Home Phone: Payer Group Member ID Coverage Type Subscriber Relationship to Subscriber Effective Date Expiration Date [employer] [id number] B Prinnier Id: [id number] [address] [facility] [facility] [address] Home Phone: Email: [email or web address] Encounters Encounter Location(s) Arrival/Admit Date Discharge/Departure Date Discharge/Departure Disposition Provider(s) Departed Physician/ Provider Office Visit [facility] February 14, 2025 9:23am February 14, 2025 10:07am Discharged to home care or self care (routine discharge) Margie Arnett NP Departed Referred -[facility] February 26, 2025 7:30pm February 26, 2025 7:31pm Discharged to home care or self care (routine discharge) Mathew Ji MD Departed Physician/ Provider Office Visit -[facility] February 28, 2025 1:29pm February 28, 2025 2:17pm Discharged to home care or self care (routine discharge) Lynne Childers APRN Departed Surgical Day Care -[facility] March 02, 2025 2:46pm March 02, 2025 5:35pm Discharged to home care or self care (routine discharge) Terence Pacheco MD Departed Referred -[facility] March 03, 2025 4:14pm March 03, 2025 4:15pm Discharged to home care or self care (routine discharge) Saúl Mary DO Departed Referred -[facility] March 09, 2025 4:38pm March 09, 2025 4:39pm Discharged to home care or self care (routine discharge) Gay De La Torre CNP Departed Physician/ Provider Office Visit -[facility] March 13, 2025 8:50am March 13, 2025 9:28am Discharged to home care or self care (routine discharge) Adolfo Kang MD Departed Physician/ Provider Office Visit -[facility] April 13, 2025 9:49am April 13, 2025 10:28am Discharged to home care or self care (routine discharge) Lynne Childers APRN Departed Physician/ Provider Office Visit [facility] May 14, 2025 10:26am May 14, 2025 11:11am Discharged to home care or self care (routine discharge) Adolfo Kang MD Recent Diagnosis Onset Date Admit Date Lumbosacral spondylosis Unknown 2024 9:23am Mid back pain Unknown February 14, 2025 9:23am Other chronic pain Unknown January 9:23am Sacroiliitis Unknown February 14, 2025 9:23am Abdominal pressure Unknown February 28, 2025 1:29pm Dyspepsia Unknown February 28 1:29pm Fatty liver Unknown February 28 1:29pm GERD (gastroesophageal reflux disease) Unknown February 28, 2025 1:29pm Hip pain Unknown March 13 8:50am Lumbosacral spondylosis Unknown March 13, 2025 8:50am Other chronic pain Unknown March 13, 2025 8:50am Sacroiliitis Unknown March 13 8:50am Fatty liver Unknown April 13, 025 9:49am GERD (gastroesophageal reflux disease) Unknown April 13, 2025 9:49am Irritable bowel syndrome with constipation Unkno wn April 13, 2025 9:49am Lumbosacral spondylosis Unknown May 14, 2025 10:26am Other chronic pain Unknown April 10:26am Sacroiliitis Unknown May 14, 2 025 10:26am Assessments Diagnosis Onset Date Resolution Status Admit Date Lumbosacral spondylosis acuteSeptember 2024 9:23amMid back painacuteSeptember 2024 9:23am Other chronic painacuteSeptember 2024 9:23amSacroiliitisacuteSeptember 2024 9:23amAbdominal pressureacuteOctober 2024 1:29pmDyspepsiaacute February 28, 2025 1:29pmFatty liveracuteOctober 2024 1:29pmGERD (gastroesophageal reflux disease)acuteOct2024 1:29pmHip painacute March 13, 2025 8:50amLumbosacral spondylosisacuteOctober 2024 8:50am Other chronic painacuteOctober 2024 8:50amSacroiliitisacuteOctober 2024 8:50amFatty liveracuteNov2024 9:49amGERD (gastroesophageal reflux disease)acuteNov2024 9:49amIrritable bowel syndrome with constipationacuteNov2024 9:49amLumbosacral spondylosisacuteDecember 2024 10:26amOther chronic painacuteDecember 2024 10:26amSacroiliitis acuteDecember 2024 10:26am Plan of Treatment Author Bandar Portillo [facility]AutredOctober 2024 3:36pmA 44-year-old female patient with diagnosis of GERD, dyspepsia, abdominal pressure and MASH Continue Protonix 40 mg twice daily as patient dyspeptic complaints including epigastric pain and heartburn have been resolved. Patient negative for dysphagia as well Patient ordered CT scan for evaluation abdominal pressure/mass bulge in abdomen. Patient did undergo ultrasound with unremarkable findings but continues with abdominal pressure. Patient prefers [place] location and has approval from insurance if [...] FibroScan would be warranted Author Chet Galicia [facility] NorthAuthoredSeptember 2024 9:07am44 year old female here for follow up [...] and movements while managing her pain. Author [facility] CenterAuthoredOctober 2024 8:30amPatient reports more than 80% pain relief to [...] injection. Follow up after infection is cleared. I recommend we proceed with updated imaging of the bilateral hips to further evaluate her pain. Author Bandar Portillo [facility] NorthAuthoredRobley [facility] 20[facility] 1:05pmA 44-year-old female patient with diagnosis of fatty liver disease per ultrasound and CT scan, GERD and IBS with constipation Continue lifestyle management with regard to IBS symptoms including increasing fiber supplementation, probiotic and ensuring adequate water intake Continue MiraLAX titration as needed for bowel frequency, patient does utilize enemas from time to time which she states more effective for her Initiate fatty liver workup including laboratory studies for hepatitis, autoimmune factors as well as iron storage complications Patient ordered FibroScan for further clarification on degree of steatosis as well as degree of fibrosis Continue Protonix 40 mg twice daily as patient describes some improvement with regard to abdominal pressure and complete resolution of epigastric pain as well as heartburn with this regimen Follow-up in this office after completion of FibroScan Author Karly Broussard [facility] 2024 11:11am44 y/o female here for follow up to discuss her chronic pain. She voices complaints of low back and bilateral hip pain. Discussed with patient different treatment options, patient is a candidate for a bilateral SI joint injection under fluoroscopic guidance. Risks and benefits of procedure explained to patient; patient verbalizes understanding. She last had this injection in June 2024 which provided her with 80-90% relief of pain until recently. Risks and benefits of procedure explained to patient; patient verbalizes understanding. Proceed with treatment of the sacral area. Follow up after procedure Future Tests Future scheduled test information is unavailable Pending Tests Test Name Ordered Date Scheduled Date XR thoracic spine 3V* February 14, 2025 9:03a m XR hips BI 4V adultOctober 2024 8:28amAlpha 1 Anti-TrypsinNov2024 10:23amANA with ReflexNovember 2024 10:23amCeruloplasminNovember 2024 10:23amHepatitis B Surface AntibodyNov2024 10:23am Mitochondrial (M2) AntibodyNov2024 10:23amSmooth Muscle Antibody April 13, 2025 10:23am Future Visits Future appointment information is unavailable Future Procedures Procedure Name Ordered Date Scheduled Date Discharge Order March 02, 2025 4:32pm Octobe r 2024 4:32pm Ovofm-6-Trwnxnwqaxj Phenotype April 13 10:23am Anti-Mitochondrial AntibodyNovwickenburg [facility] 2024 10:23amComplete Blood Count Auto DiffNov2024 10:23amEnhanced Liver Fibrosis TestNovwickenburg regional hospital 2024 10:24amIron and TIBC ProfileNovember 2024 10:23amFerritinNovwickenburg regional hospital 2024 10:23amHepatitis B Core AntibodyNovwickenburg regional hospital 2024 10:23amHepatitis B Surface AntigenNovwickenburg [facility] hospital 2024 10:23amHep C Ab wRfx to Qnt PCRNovwickenburg regional hospital 2024 10:23amHepatic PanelNovwickenburg regional hospital 2024 10:23amLipid PanelRobley [facility] 2024 10:23amProthrombin Time INRApril 13, 2025 10:23am Future Medications Future medication information is unavailable Patient Instructions Instruction Admit Date Skin abscess drainage - Disc harge instructions How to change a dressing [facility] 20[facility] 2:46pm Goals Acute Goals Author Authored Date Experience reduced anxiety * Identifies current stressors * Develops effective coping behaviors * Uses support services as appropriateReg[facility]Octsaint [facility] 2024 5:46pmRemain free of complications [facility] 2024 5:46pmUnderstand preop/postop care/sensations * Verbalizes understanding of surgical procedure * Verbalizes understanding of sensations following surgery * Verbalizes understanding of post-op treatment planOly [facility] HospitalOcts[facility] 2024 5:46pmReport pain at tolerable level * Uses pain scale appropriately * Identify options for pain control - Analgesics - Narcotics - Non-medication measuresOly [facility] HospitalOcts[facility] 2024 5:46pmAbsence of imbalanced fluid volume s/s O[facility] HospitalOctober 2024 5:46pmAbsence of physical injury Oly [facility]Oct[facility] 2024 5:46pmAbsence of surgical site infection O[facility] 2024 5:46pm
--- OUTSIDE RECORDS SUMMARY | 2025-05-15 11:25 | XMS_ITS | Encounter Summary ---
Author Organization [facility] Address [address] [place] [address] Care Team Providers Care Computer Repair Instructor Name Role Phone Gay De La Torre MD Unavailable [phone] Manuel Klein MD Primary Care Provider [phone] Reason for Visit * ReasonCommentsFollow-up Encounter Details DateTypeDepartmentCare Team (Latest Contact Info)Pjucrlbzrgb06/23/2025 11:25 AM ESTOffice Visit [facility] [address] [facility] [address] [place] [id number] Cynthia English MD [address] [facility] [address] [place] [address] Hidradenitis suppurativa (Primary Dx); Pain Social History Tobacco UseTypesPacks/DayYears UsedDateSmoking Tobacco: Every [id number] Started: 05/24/1995Smokeless Tobacco: Never Comments:Current smoker, carlos ry, 11-20 cigarettes/day Alcohol UseStandard Drinks/WeekCommentsNever0 (1 standard drink = 0.6 oz pure alcohol)Caffeine intake : > 4 cups per dayCommentsNoSex and Gender InformationValueDate RecordedSex Assigned at BirthNot on fileLegal SexFemale 08/05/2022 7:18 PM EDTGender IdentityNot on fileSexual OrientationNot on file documented as of this encounter Progress Notes * Cynthia English MD - 05/15/2025 11:25 AM EST Follow up Diagnosis: Hidradenitis Location: generalized Last visit: 3 months ago Symptoms: currently has a breakout on the buttocks and right leg that both started a couple days ago Status: flared, very painful, hurts to sit Previous treatments: ILK injections in the past Current treatment: Clindamycin lotion and Hibiclens All pertinent medical history, medications, and allergies were reviewed. General Exam: alert, oriented to person, place, and time, normal affect, well appearing A focused exam completed based on patient reported problems, see below: Skin Exam 1. HIDRADENITIS SUPPURATIVA Left Buttock, Right Medial Thigh Erythematous nodules, double comedones, and scarring. Martines Stage 2. Flaring today At this time as patient has 2 inflamed areas, plan to inject smaller cyst with ILK on the right medial thigh and perform punch deroofing on the left buttock. Will start Keflex 500mg bid x 14 days today. Also added refills to the ATB for patient to take at the first signs of any new breakouts. Given symptoms, recommend treatment with ILK today. ILK today, see [facility] for details. Consent: The risks and benefits of intralesional kenalog were discussed prior to the procedure. Specifically, the risk of skin atrophy was reviewed. It was also emphasized that multiple treatments may be necessary. Verbal consent was obtained from the patient/parent. Method: See [facility] for details on administration. 0.1 ml of K5 was injected intradermally. The patient/parents were instructed to massage the injection site(s) following the procedure. Instructed to call for any questions or problems that occur. Procedure: Punch deroofing Dx: Hidradenitis suppurativa Location: left buttock Indication: Symptomatic inflammatory nodule causing pain and/or drainage. Risks (including scarring, infection, bleeding, and incomplete relief), benefits, and alternatives (including medical management and surgical excision) were discussed with the patient. Informed consent was obtained verbally. Anesthesia: Local anesthesia with 1% lidocaine w/ epinephrine 1-100,000 buffered w/ 8.4% NaHCO3 1 mL Procedure: The area was prepped with hibiclens. A 2 mm punch was used to remove the roof of the sinus tract. Tract contents were expressed. Hemostasis achieved with pressure. Wound left open to heal by secondary intention, discussed area will continue to drain post-procedure. Complications: None Tolerance: Patient tolerated procedure well Plan: Open wound care instructions given. Patient instructed to notify office for any signs of infection or concerns post-procedure. This Visit - cephalexin (Keflex) 500 MG capsule - Take 1 tablet bid x 14 days - triamcinolone acetonide (Kenalog) injection 5 mg Existing Treatments - clindamycin (Cleocin T) 1 % lotion - Apply thin later to affected areas on the thighs, once daily, 30 day supply - Chlorhexidine Gluconate (Hibiclens) 4 % solution - Use every day in shower from the neck down to affected areas. - triamcinolone acetonide (Kenalog) injection 2.5 mg 2. PAIN Existing Treatments - triamcinolone acetonide (Kenalog) injection 2.5 mg Next Visit: as scheduled documented in this encounter Plan of Treatment DateTypeDepartmentCare Team (Latest Contact Info)Gxadmugusge81/04/2026 11:00 AM ESTOffice Visit [facility] [address] [facility] [address] [place] [address] Cynthia English MD [address] [facility] [address] [place] [address] documented as of this encounter Visit Diagnoses Diagnosis Hidradenitis suppurativa- Primary Hidradenitis Pain Generalized pain documented in this encounter Administered Medications Medication OrderMAR ActionAction DateDoseRateSite triamcinolone acetonide (Kenalog) injection 5 mg 5 mg, Intra-lesional, Once, On Wed05/15/25 at 1200, For 1 dose Indications:Hidradenitis ewiqpmtdgqmYbdln99/23/2025 11:47 AM EST5 mgdocumented in this encounter Care Teams Team MemberRelationshipSpecialtyStart DateEnd Date Manuel Klein MD [address] [place] [id number] PCP - GeneralFamily Kebromek77/17/25 Gay De La Torre MD [address] [place] [address] Referring PhysicianFamily Medicine07/18/24documented as of this encounter
--- OUTSIDE RECORDS SUMMARY | 2025-05-18 23:59 | XMS_ITS | Continuity of Care Document ---
Author Organization [facility] Address [address] [facility], [facility] [place] [address] Care Team Providers Care Preform Machine Operator Name Role Phone LADY MITCHELL Primary Care Physician Encounter FT_AMBFIN [id number] Date(s): 05/18/25 - 05/18/25 [facility] [address], [facility] [place] [address]- [place] Encounter Diagnosis BMI 45.0-49.9, adult(Discharge Diagnosis) - 05/18/25 Hidradenitis suppurativa(Discharge Diagnosis) - 05/18/25 Discharge Disposition: Home (Routine DC) Attending Physician: Henny Godoy Encounter Type: Clinic Allergies, Adverse Reactions, Alerts SubstanceCriticalitySeverityReactionReaction SeverityStatuscodeineTrouble breathing......ActiveLatexRashActiveBactrimsickActive Functional Status 05/18/25 Symptomatic After Exposure to ContagionNoSymptomatic After Travel High-Risk Area NoDroplet, Contact Isolation VerificationN/AAirborne,Contact Isolation VerificationN/A Medications No Known Medications Problem List ConditionConfirmationCourseEffective DatesStatusHealth StatusInformantAnxiety ConfirmedActiveArthritisConfirmedActiveInsulin resistanceConfirmedResolved CpiwjwbWeukoeelxVnynqoQgpkwd4SvzuufhebYzyefu 1Added secondary to documentation in Social History. Procedures ProcedureDateRelated DiagnosisBody YgbvCkdwecYbhpyemcdq9UkzqaevrgP&C - Dilatation and gryunnbrl8LdkgxadjwYzoxqhjexy laparoscopyCompleted 1pilonital 2x2 Vital Signs Most recent to oldest [Reference Range]:1Temperature Temporal Artery [36.3-37.8 DegC]36.7 DegC (05/18/25 2:56 PM)Peripheral Pulse Rate [60-100 bpm]100 bpm (05/18/25 2:56 PM)Respiratory Rate [14-20 br/min]18 br/min (05/18/25 2:56 PM)Blood Pressure [89-139/59-89 mmHg]126/86mmHg (05/18/25 2:56 PM)Blood Pressure LocationLeft arm (05/18/25 2:56 PM)SpO2 [89 %]98 % (05/18/25 2:56 PM) Social History Social History TypeResponseSmoking Gbsfxv61 or more cigarettes (1/2 pack or more)/day in last 30 days entered on: 05/18/25Birth SexFemaleSex RepresentationFemale (finding) Hospital Discharge Instructions Patient Education 05/18/2025 15:12:54 Hidradenitis Suppurativa Hidradenitis Suppurativa Hidradenitis suppurativa is a long-term (chronic) skin disease. It is similar to a severe form of acne, but it affects areas of the body where acne would be unusual, especially areas of the body where skin rubs against skin and becomes moist. These include: ??? Underarms. ??? Groin. ??? Genital area. ??? Buttocks. ??? Upper thighs. ??? Breasts. Hidradenitis suppurativa may start out as small lumps or pimples caused by blocked skin pores, sweat glands, or hair follicles. Pimples may develop into deep sores that break open (rupture) and drainpus. Over time, affected areas of skin may thicken and become scarred. This condition is rare and does not spread from person to person (non-contagious). What are the causes? The exact cause of this condition is not known. It may be related to: ??? Male and female hormones. ??? An overactive disease-fighting system (immune system). The immune system may over-react to blocked hair follicles or sweat glands and cause swelling and pus- filled sores. What increases the risk? You are more likely to develop this condition if you: ??? Are female. ??? Are 11???55 years old. ??? Have a family history of hidradenitis suppurativa. ??? Have a personal history of acne. ??? Are overweight. ??? Smoke. ??? Take the medicine lithium. What are the signs or symptoms? The first symptoms are usually painful bumps in the skin, similar to pimples. The condition may getworse over time (progress), or it may only cause mild symptoms. If the disease progresses, symptomsmay include: ??? Skin bumps getting bigger and growing deeper into the skin. ??? Bumps rupturing and draining pus. ??? Itchy, infected skin. ??? Skin getting thicker and scarred. ??? Tunnels under the skin (fistulas) where pus drains from a bump. ??? Pain during daily activities, such as pain during walking if your groin area is affected. ??? Emotional problems, such as stress or depression. This condition may affect your appearance andyour ability or willingness to wear certain clothes or do certain activities. How is this diagnosed? This condition is diagnosed by a health care provider who specializes in skin conditions (occupancy specialist). You may be diagnosed based on: ??? Your symptoms and medical history. ??? A physical exam. ??? Testing a pus sample for infection. ??? Blood tests. How is this treated? Your treatment will depend on how severe your symptoms are. The same treatment will not work for everybody with this condition. You may need to try several treatments to find what works best for you.Treatment may include: ??? Cleaning and bandaging (dressing) your wounds as needed. ??? Lifestyle changes, such as new skin care routines. ??? Taking medicines, such as: ??? Antibiotics. ??? Acne medicines. ??? Medicines to reduce the activity of the immune system. ??? A diabetes medicine (metformin). ??? control pills, for women. ??? Steroids to reduce swelling and pain. ??? Working with a mental health care provider, if you experience emotional distress due to this condition. If you have severe symptoms that do not get better with medicine, you may need surgery. Surgery mayinvolve: ??? Using a laser to clear the skin and remove hair follicles. ??? Opening and draining deep sores. ??? Removing the areas of skin that are diseased and scarred. Follow these instructions at home: Medicines ??? Take zbty-cqq-yqcugem and prescription medicines only as told by your health care provider. ??? If you were prescribed antibiotics, take them as told by your health care provider. Do not stopusing the antibiotic even if your condition improves. Skin care ??? If you have open wounds, cover them with a clean dressing as told by your health care provider.Keep wounds clean by washing them gently with soap and water when you bathe. ??? Do not shave the areas where you get hidradenitis suppurativa. ??? Wear loose-fitting clothes. ??? Try to avoid getting overheated or sweaty. If you get sweaty or wet, change into clean, dry clothes as soon as you can. ??? To help relieve pain and itchiness, cover sore areas with a warm, clean washcloth (warm compress) for 5???10 minutes as often as needed. ??? Your healthcare provider may recommend an antiperspirant deodorant that may be gentle on your skin. ??? A daily antiseptic wash to cleanse affected areas may be suggested by your healthcare provider. General instructions ??? Learn as much as you can about your disease so that you have an active role in your treatment. Work closely with your health care provider to find treatments that work for you. ??? If you are overweight, work with your health care provider to lose weight as recommended. ??? Do not use any products that contain nicotine or tobacco. These products include cigarettes, chewing tobacco, and vaping devices, such as e-cigarettes. If you need help quitting, ask your health care provider. ??? If you struggle with living with this condition, talk with your health care provider or work with a mental health care provider as recommended. ??? Keep all follow-up visits. Where to find more information ??? Hidradenitis Suppurativa Foundation[employer] Inc.: www.hs-foundation.org ??? [place] [employer]: www.aad.org Contact a health care provider if: ??? You have a flare-up of hidradenitis suppurativa. ??? You have a fever or chills. ??? You have trouble controlling your symptoms at home. ??? You have trouble doing your daily activities because of your symptoms. ??? You have trouble dealing with emotional problems related to your condition. Summary ??? Hidradenitis suppurativa is a long-term (chronic) skin disease. It is similar to a severe form of acne, but it affects areas of the body where acne would be unusual. ??? The first symptoms are usually painful bumps in the skin, similar to pimples. The condition mayonly cause mild symptoms, or it may get worse over time (progress). ??? If you have open wounds, cover them with a clean dressing as told by your health care provider.Keep wounds clean by washing them gently with soap and water when you bathe. ??? Besides skin care, treatment may include medicines, laser treatment, and surgery. This information is not intended to replace advice given to you by your health care provider. Make sure you discuss any questions you have with your health care provider. Document Revised: 07/01/2022 Document Reviewed: 07/01/2022 [employer] Patient Education ?? 2023 [employer]. Follow Up Care 05/18/2025 09:50:38 With:LADY MITCHELL DO Address: [address] [place] [address]- When: Unknown Patient Care team information Care Team Personnel Name: LADY MITCHELL DO Member Role: Primary Care Physician Address: [address] [place] [address]- Telecom: Care Team Related Persons Name: ALE ALCOCER Insurance Providers Guarantor name: JONES [facility] Information #: 1 Payer: [facility] Payer Identifier: [id number] Member Number: [id number] Group Number: [id number] Subscriber Identifier: [id number] Relationship to Subscriber: self Coverage Type: MEDICAID Coverage Verification Date: NA Telecom: [phone] Address: [facility] [address] [place] [address]
[2025-05-19 05:19] VITALS: BP 157/105; PULSE 104; TEMP 36.4; O2SAT 98; BMI 45.4
[2025-05-19] MEDS: LIDOCAINE HCL 1% 100 MG/10 ML MDV INJ (05:43)
--- NOTE | 2025-05-19 05:54 | ED.SKABFB1 ---
HPI - Skin/Abscess/Foreign Bdy General Chief complaint: Skin/Abscess/Foreign Body Stated complaint: boil Time Seen by Provider: 05/19/25 05:30 Source: patient Mode of arrival: walk-in History of Present Illness HPI narrative: cc - boil/abscess to right medial buttock. Pt with hydradenitis suppurativa presents with painful area of swelling and redness to the medial right buttock suspicious for abscess. Pt regularly sees a university lecturer and has these lanced. Sometimes she gets kenalog injections into the cystic areas. She said that she is currently taking oral keflex after developing and abscess of the LEFT buttock that was treated last week by the university lecturer. No systemic symptoms such as fever or vomiting. Related Data Home Medications ?Medication ?Instructions ?Recorded ?Confirmed ergocalciferol (vitamin D2) 1,250 1,250 mcg PO .3 times weekly 12/18/22 05/19/25 mcg (50,000 unit) capsule folic acid 1 mg tablet 1 mg PO DAILY 12/18/22 05/19/25 hydroxychloroquine 200 mg tablet 200 mg PO BID 12/18/22 05/19/25 prednisone 10 mg tablet 10 mg PO DAILY 12/18/22 05/19/25 pregabalin 75 mg capsule 75 mg PO Q8H PRN pain 12/18/22 05/19/25 metoprolol tartrate 50 mg tablet 200 mg PO DAILY 07/07/23 05/19/25 duloxetine 20 mg capsule,delayed 20 mg PO DAILY 04/15/24 05/19/25 release chlorhexidine gluconate 4 % 1 applic topical DAILY 03/03/25 03/03/25 topical liquid (Hibiclens) clindamycin phosphate 1 % lotion 1 applic topical DAILY 03/03/25 05/19/25 clonazepam 0.5 mg tablet 0.5 mg PO Q12H PRN anxiety 03/03/25 05/19/25 dulaglutide 0.75 mg/0.5 mL 1.5 mg subcut .WEEKLY 03/03/25 05/19/25 subcutaneous pen injector ([facility]) fluocinonide 0.05 % topical 1 applic topical DAILY 03/03/25 05/19/25 solution pantoprazole 40 mg tablet,delayed 40 mg PO DAILY 03/03/25 05/19/25 release tacrolimus 0.1 % topical ointment 1 applic topical Q12H 03/03/25 05/19/25 tretinoin 0.025 % topical cream 1 applic topical Q3D 03/03/25 05/19/25 Previous Rx's ?Medication ?Instructions ?Recorded cephalexin 500 mg capsule 500 mg PO TID 10 days #30 caps 02/26/25 fidaxomicin 200 mg tablet 200 mg PO BID 10 days #20 tabs 02/26/25 Allergies Allergy/AdvReac Type Severity Reaction Status Date / Time clindamycin Allergy Mild Unknown Verified 05/19/25 05:18 sulfamethoxazole (From Allergy Unknown Verified 05/19/25 05:18 Sulfamethoxazole-Trimethoprim) trimethoprim (From Allergy Unknown Verified 05/19/25 05:18 Sulfamethoxazole-Trimethoprim) Bactrim Allergy Intermediate Unknown Uncoded 05/19/25 05:18 PFSH PFSH Social History Smoking status: Current every day smoker Little interest or pleasure in doing things: not at all Feeling down, depressed, or hopeless: not at all Exam Narrative Exam Narrative: Nurses notes and vital signs reviewed and patient is not hypoxic. afebrile General: Well-appearing and in no apparent distress. Skin: Warm, dry, no pallor noted. RIGHT BUTTOCK = 4cm diameter area of induration, erythema and tenderness to the medial right buttock. Central fluctuance noted. Eye: Pupils are equal, round and EOMI. No scleral icterus. Cardiovascular: normal peripheral perfusion. Respiratory: No accessory muscle use or respiratory distress. Neurological: A&O x4. No cranial nerve dysfunction observed. No truncal ataxia. Moves all extremities. Sensation intact. Psychiatric: Cooperative and interactive. Normal mood and affect. Constitutional Vital Signs, click to edit/add: Last Vital Signs Temp 97.5 F L 05/19/25 05:19 Pulse 104 H 05/19/25 05:19 Resp 20 05/19/25 05:19 BP 157/105 H 05/19/25 05:19 Pulse Ox 98 05/19/25 05:19 O2 Del Method Room Air 05/19/25 05:19 Course Vital Signs Vital signs: Vital Signs Temperature 97.5 F L 05/19/25 05:19 Pulse Rate 104 H 05/19/25 05:19 Respiratory Rate 20 05/19/25 05:19 Blood Pressure 157/105 H 05/19/25 05:19 Pulse Oximetry 98 05/19/25 05:19 Oxygen Delivery Method Room Air 05/19/25 05:19 Temperature 97.5 F L 05/19/25 05:19 Pulse Rate 104 H 05/19/25 05:19 Respiratory Rate 20 05/19/25 05:19 Blood Pressure 157/105 H 05/19/25 05:19 Pulse Oximetry 98 05/19/25 05:19 Oxygen Delivery Method Room Air 05/19/25 05:19 MDM - Skin/Abscess/Foreign Bdy MDM Narrative Medical decision making narrative: After applying 4 mL of 1% lidocaine surrounding the area of fluctuance, I was able to use an 11 blade scalpel to make a small incision central to the abscess and drained a large amount of purulent material. I used the scalpel to deloculated the abscess and was able to remove all of the material. Patient tolerated the procedure well. She told me that she cannot take antibiotics aside from Keflex and Augmentin. She told that she could not take doxycycline or clindamycin and she has a documented allergy to Bactrim. Patient was instructed to continue to take her Keflex as prescribed and call her university lecturer for follow-up. ED return if she worsens. Discharge Plan Discharge Chief Complaint: Skin/Abscess/Foreign Body Clinical Impression: Abscess of skin or subcutaneous tissue Patient Disposition: Home, Self-Care Time of Disposition Decision: 05:58 Prescriptions / Home Meds: No Action ergocalciferol (vitamin D2) 1,250 mcg (50,000 unit) capsule 1,250 mcg PO .3 times weekly folic acid 1 mg tablet 1 mg PO DAILY hydroxychloroquine 200 mg tablet 200 mg PO BID prednisone 10 mg tablet 10 mg PO DAILY pregabalin 75 mg capsule 75 mg PO Q8H PRN (Reason: pain) metoprolol tartrate 50 mg tablet 200 mg PO DAILY duloxetine 20 mg capsule,delayed release(DR/EC) 20 mg PO DAILY fidaxomicin 200 mg tablet 200 mg PO BID 10 Days Qty: 20 0RF cephalexin 500 mg capsule 500 mg PO TID 10 Days Qty: 30 0RF chlorhexidine gluconate [Hibiclens] 4 % liquid 1 applic TOPICAL DAILY clindamycin phosphate 1 % lotion 1 applic TOPICAL DAILY clonazepam 0.5 mg tablet 0.5 mg PO Q12H PRN (Reason: anxiety) tretinoin 0.025 % cream 1 applic TOPICAL Q3D pantoprazole 40 mg tablet,delayed release (DR/EC) 40 mg PO DAILY tacrolimus 0.1 % ointment 1 applic TOPICAL Q12H fluocinonide 0.05 % solution 1 applic TOPICAL DAILY Trulicity 0.75 mg/0.5 mL pen injector 1.5 mg SUBCUT .WEEKLY Print Language: Bhutanese Instructions: Abscess (ED), Abscess Incision and Drainage (DC) Referrals: SAMSON ENCISO [Primary Care Provider, Family Practice] - 1 week
--- OUTSIDE RECORDS SUMMARY | 2025-05-19 06:03 | XMS_ITS | Encounter Summary ---
Author Organization [facility] Address [address] [place] [address] Care Team Providers Care Lead Cytogenetic Technologist Name Role Phone Manuel Klein MD Unavailable [phone] Manuel Klein MD Primary Care Provider +-4 Manuel Klein MD Unavailable [phone] Source Comments In the event this information is protected by the Federal Confidentiality of Alcohol and Drug AbusePatient Records regulations: The Federal rules restrict any use of the information to criminally investigate or prosecute any alcohol or drug abuse patient.[facility] Encounter Details DateTypeDepartmentCare Team (Latest Contact Info)Mfcvvlmvxmg79/19/2025Orders Only Hematology/Oncology [address] [facility] [address] Neda Hill, PAJuliusC [address] [place] [address] Social History Tobacco UseTypesPacks/DayYears UsedDateSmoking Tobacco: Every XseUpmkniqkiu603 Smokeless Tobacco: NeverAlcohol UseStandard Drinks/WeekCommentsNo0 (1 standard drink = 0.6 oz pure alcohol)PHQ-2AnswerDate RecordedPHQ-2 lrtfr0514Area Deprivation IndexAnswerDate RecordedNational Score (1-100), lower number is lower qnyk034009/24/2022State Score (1-10), lower number is lower avno627 Data from: https://www.neighborhoodatlas.medicine.[facility]/. Last address used for fubvlfzpyiq[address]3CommentsNoSex and Gender InformationValueDate RecordedSex Assigned at BirthNot on fileLegal SexFemale 05/31/2014 2:51 PM ESTGender IdentityNot on fileSexual OrientationNot on file documented as of this encounter Functional Status * Are you deaf or do you have serious difficulty hearing?AnswerDate of UmvsuxlxksShsjxvZs03/04/2015 11:14 AM Chichi Stevens Ma * Are you blind or do you have serious difficulty seeing, even when wearing glasses?AnswerDate of ZjvtapalczKsgyxlKj44/04/2015 11:14 AM Chichi Stevens Ma * Do you have serious difficulty walking or climbing stairs?AnswerDate of RybezgbrhdStmwewBhc12/04/2015 11:14 AM Chichi Stevens Ma * Do you have difficulty dressing or bathing?AnswerDate of AssessmentAuthorYes 12/25/2014 11:14 AM Chichi Stevens Ma * Because of a physical, mental, or emotional condition, do you have difficulty doing errands alone such as visiting a doctor's office or shopping?AnswerDate of OxbvypgnucQiycinWt25/04/2015 11:14 AM Chichi Stevens Ma documented as of this encounter Mental Status * Because of a physical, mental, or emotional condition, do you have serious difficulty concentrating, remembering, or making decisions?AnswerEntry Date EmwqadTj54/04/2015 11:14 AM Chichi Stevens Ma documented in this encounter Plan of Treatment DateTypeDepartmentCare Team (Latest Contact Info)Ldvsiqatkdj22/31/2025 9:00 AM [facility] [address] [place] [address] [place] [address] IVIG Q 3 WEEKS05/31/2025 2:00 PM [facility] Hematology/Oncology [address] [place] [address] BENLYSTA -06/13/2025 8:45 AM ESTOffice Visit [facility] [address] [place] [address] 12 week follow up IVIG06/13/2025 9:00 AM ESTVisit (SP) Office Hematology/Oncology [address] [place] [address] Fara Lopez, MAURILIO.HAND II TUBE BENDER [address] [place] [address] 12 week follow up IVIG06/13/2025 9:30 AM [facility] Hematology/Oncology [address] [place] [address] 12 week follow up IVIG06/28/2025 2:00 PM [facility] Hematology/Oncology [address] [place] [address] BENLYSTA -07/26/2025 2:00 PM [facility] Hematology/Oncology [address] [place] [address] BENLYSTA -documented as of this encounter Visit Diagnoses Not on filedocumented in this encounter Care Teams Team MemberRelationshipSpecialtyStart DateEnd Date Manuel Klein MD PCP - GeneralFamily Trycnkbu87/7/22 Manuel Klein MD ReferringFamily Medicine02/12/22 Manuel Klein MD [facility] [place] [address] ReferringFamily Medicine07/06/24documented as of this encounter
--- OUTSIDE RECORDS SUMMARY | 2025-05-19 06:03 | XMS_ITS | Clinical Summary ---
Author Organization [facility] Address [address] [place] [address] Care Team Providers Care Migratory Game Bird Biologist Name Role Phone Gay De La Torre CNP Primary Care Provider [phone] Allergies Active AllergyReactionsCriticalityNoted KbtoCloxhsxwZermatmndiDjpvk47/16/2024 QrxyoqidcwyoQwixy30/16/5586TpmhvrtbvpdahmetNvljf86/08/2015 Other Reaction(s): gi Other Reaction(s): lymph swelling CAUSED ENLARGED LYMPH NODES Sulfamethoxazole-TrimethoprimOther,GI intolerance,UaalujobByq11/03/2016 Patient states it was a long time [...] auto-injector Inject 200mg (1 pen) subcutaneously once litscl0402/04/2023ctive Active Problems ProblemNoted DateDiagnosed AhjnQmzujxpc92/15/2024uct ectasia of breast 03/07/2024GERD (gastroesophageal reflux disease)03/07/2024Insulin resistance 03/07/2024Lumbosacral symtenbceqn11/15/2024bdominal qgjzmcky84/15/2024. difficile yfajtojg09/15/2024Facet arthritis of lumbar yzrlee3112/15/2023ischarge from agbwmo7011/15/2023Irregular periods/menstrual ydqluq2411/15/2023egenerative disc disease, jzkeia5611/08/2023History of vitamin D uiqzpbkkyq90/14/2024Hoarse 08/10/2023ure hypercholesterolemia, oxujnnxgmve30/19/2024Thyroid nodule 08/10/2023AC (premature atrial contraction)07/13/2023aroxysmal supraventricular vwxjsymimoh41/20/2024Shortness of petxrf4407/13/2023ervical tikinbcpgsknm43/13/2024hronic bydyjotisuguhtqxap08/13/2024urrent smoker 07/06/2023 Overview (03/07/2024): Added secondary to documentation in Social History. Added secondary to documentation in Social History. Cytomegalovirus sgrwvfoxh33/13/2024isturbance of skin xifjtccjj99/13/2024 Enthesopathy of hip akujoj3107/06/2023LPRD (laryngopharyngeal reflux disease) 07/06/2023Lumbosacral radiculopathy at L507/06/20233588Casvymg40/13/2024Oral lesion 07/06/2023ain, hip07/06/2023hronic fatigue and uitskcl4706/10/2023nxiety 06/09/20239357Vhtrifaov22/17/2024epression, xbkjkjoll61/17/2024Essential hvtrclucxhsh18/17/2024utonomic rlagelkeizp85/09/2829Sprsvgcdk81/09/2024 Nlhtulnyrym39/09/2024ilateral wrist pain02/04/2023Long term current use of systemic psksowlz43/14/2023Raynaud's disease without vgaroxoj93/14/2023Steroid- induced fqfkrzukgqjg16/14/2023Excessive and frequent menstruation with irregular cycle09/24/2022Obesity, Class III, BMI 40-49.9 (morbid obesity)09/07/2022NA smuiccgx81/23/2023Long-term use of high-risk htsbucgdkd78/23/2023Obstructive sleep apnea /28/2022omnolence, gwjufwq1305/20/2022nemia, unspecified 03/11/2022Megaloblastic anemia due to vitamin B12 dbnegdkple15/12/2022iscoid lupus gdzkeroakjsrv59/24/2022Vitamin D jwekjhrser76/14/2021ilateral leg /13/2021hronic pain of toes of both feet03/05/2021levated sed rate 03/05/2021Family history of Crohn's rudthzz8303/05/2021Hair loss03/05/2021ong- term use of Ckeiwrpsw90/13/2021Rash and nonspecific skin dwobpvah60/13/2021 Secondary osteoarthritis of multiple sites03/05/2021welling of lymph nodes 03/05/20216054Zafcsn45/08/2015Chronic bilateral low back pain with bilateral bmbuxlua76/08/4613Ayzwzelsqrzrft61/08/2015Vitamin B12 ozotcqnqva78/08/2015 Family History Medical HistoryRelationNameCommentsHeart attackMaternal GrandfatherHeart failure [...] InformationValueDate RecordedSex Assigned at BirthNot on fileLegal ZabOegxdh22/30/2022 8:07 PM ESTGender IdentityNot on fileSexual OrientationNot on file Last Filed Vital Signs Vital SignReadingTime TakenCommentsBlood Jmigayis741/8210/ 10:12 AM EDT Tottg352703/08/2024 10:12 AM EDTTemperature--Respiratory Rate--Oxygen Saturation 98%03/08/2024 10:00 AM EDTInhaled Oxygen Concentration--Zlnfja394 kg (275 lb) 03/08/2024 10:00 AM JQCYkcfan554.2 cm (5' 7 )03/08/2024 10:00 AM EDTBody Mass Index43.0703/08/2024 10:00 AM EDT Plan of Treatment Health MaintenanceDue DateLast DoneCommentsDepression Qepxpljiv55/14/1993 Varicella Vaccines (1 of 2 - 13+ 2-dose series)1993Hepatitis B Vaccines (1 of 3 - 19+ 3-dose series)10/05/1999Pneumococcal Vaccine: Pediatrics (0 to 5 Years) and At-Risk Patients (6 to 64 Years) (1 of 2 - PCV)10/05/1999Adult Nsrkvnz9610/04/2002HPV Vaccines (1 - 3-dose SCDM series)10/05/2007HPV/Cotest 2010Cervical Cancer Otxvsafee30/12/2011Pap Smear Bzkogmvgd91/14/2021OVID-19 Vaccine ( season)51, 02/08/2022, 05/26/2021, Additional history [...] MemberRelationshipSpecialtyStart DateEnd Gay De La Torre CNP [facility] [facility], [address] [place], [place] [id number] PCP - GeneralFamily Xvwkwvaz97/9/24
--- OUTSIDE RECORDS SUMMARY | 2025-05-19 06:03 | XMS_ITS | Encounter Summary ---
Author Organization [facility] Address [address] [place] [address] Care Team Providers Care Can Tender Name Role Phone Manuel Klein MD Unavailable [phone] Manuel Klein MD Primary Care Provider [phone] Manuel Klein MD Unavailable [phone] Source Comments In the event this information is protected by the Federal Confidentiality of Alcohol and Drug AbusePatient Records regulations: The Federal rules restrict any use of the information to criminally investigate or prosecute any alcohol or drug abuse patient.[facility] Encounter Details DateTypeDepartmentCare Team (Latest Contact Info)Xytckdpommy63/18/2025Orders Only Hematology/Oncology [address] [facility] [place] [address] Rebekah Rojas, MAURIILO.HUMAN RESOURCES FILE CLERK [address] [place] [address] Social History Tobacco UseTypesPacks/DayYears UsedDateSmoking Tobacco: Every FrlQvtaiosuuf088 Smokeless Tobacco: NeverAlcohol UseStandard Drinks/WeekCommentsNo0 (1 standard drink = 0.6 oz pure alcohol)PHQ-2AnswerDate RecordedPHQ-2 spqei7874Area Deprivation IndexAnswerDate RecordedNational Score (1-100), lower number is lower mryx963409/24/2022State Score (1-10), lower number is lower uqzx600 Data from: https://www.neighborhoodatlas.medicine.[facility]/. Last address used for fl[address]3CommentsNoSex and Gender InformationValueDate RecordedSex Assigned at BirthNot on fileLegal SexFemale 05/31/2014 2:51 PM ESTGender IdentityNot on fileSexual OrientationNot on file documented as of this encounter Functional Status * Are you deaf or do you have serious difficulty hearing?AnswerDate of XbueunctywGeevemEf56/04/2015 11:14 AM Chichi Stevens Ma * Are you blind or do you have serious difficulty seeing, even when wearing glasses?AnswerDate of ObpziyaazjBvmkcoKs76/04/2015 11:14 AM Chichi Stevens Ma * Do you have serious difficulty walking or climbing stairs?AnswerDate of PfniqdvimqIgdwqeJbf07/04/2015 11:14 AM Chichi Stevens Ma * Do you have difficulty dressing or bathing?AnswerDate of AssessmentAuthorYes 12/25/2014 11:14 AM Chichi Stevens Ma * Because of a physical, mental, or emotional condition, do you have difficulty doing errands alone such as visiting a doctor's office or shopping?AnswerDate of OcdhmqdmpsCwebspCv91/04/2015 11:14 AM Chichi Stevens Ma documented as of this encounter Mental Status * Because of a physical, mental, or emotional condition, do you have serious difficulty concentrating, remembering, or making decisions?AnswerEntry Date UhuxicEx47/04/2015 11:14 AM Chichi Stevens Ma documented in this encounter Plan of Treatment DateTypeDepartmentCare Team (Latest Contact Info)Ykczvnpcagn36/31/2025 9:00 AM [facility] [address] [place] [address] [place] [address] IVIG Q 3 WEEKS05/31/2025 2:00 PM [facility] Hematology/Oncology [address] [facility] [place] [address] BENLYSTA -06/13/2025 8:45 AM ESTOffice Visit [facility] [address] [place] [address] 12 week follow up IVIG06/13/2025 9:00 AM ESTVisit (SP) Office Hematology/Oncology [address] [place] [address] Fara Lopez, MAURILIO.HUMAN RESOURCES FILE CLERK [address] [place] [address] 12 week follow up IVIG06/13/2025 9:30 AM [facility] Hematology/Oncology [address] [place] [address] 12 week follow up IVIG06/28/2025 2:00 PM [facility] Hematology/Oncology [address] [facility] [place] [address] BENLYSTA -07/26/2025 2:00 PM [facility] Hematology/Oncology [address] [facility] [place] [address] BENLYSTA -documented as of this encounter Visit Diagnoses Not on filedocumented in this encounter Care Teams Team MemberRelationshipSpecialtyStart DateEnd Date Manuel Klein MD PCP - GeneralFamily Gctztjgn06/7/22 Manuel Klein MD ReferringFamily Medicine02/12/22 Manuel Klein MD [facility] [place] [address] ReferringFamily Medicine07/06/24documented as of this encounter
--- OUTSIDE RECORDS SUMMARY | 2025-05-19 06:03 | XMS_ITS | Clinical Summary ---
Author Organization [facility] Address [address] [place] [address] Phone Care Team Providers Care Optician Apprentice Name Role Phone Mitali, Michelle London QUALITY CONTROL PROJECTIONIST-DATABASE MODELER Unavailable [phone] Kenneth Patel MD Unavailable [phone] Gay De La Torre QUALITY CONTROL PROJECTIONIST-DATABASE MODELER Primary Care Provider Allergies Active AllergyReactionsCriticalityNoted DateCommentsDoxycyclineOther,UnknownLow 01/19/2022 Patient states it was a long time ago and she did not have a severe reaction. She does not believe she is allergic, she just thinks she just experienced side effects. Sulfamethoxazole-TrimethoprimSwelling,ZvvesQap83/03/2016 Patient states it was a long time [...] a week10/23/2022ctive ergocalciferol (Vitamin D-2) 1.25 MG (63853 UT) capsule Take 1 capsule (50,000 Units) [...] tablet /ctive Active Problems ProblemNoted DateDiagnosed DateCurrent aujups6707/13/2023aroxysmal supraventricular yvxetpfjica59/20/2024Shortness of dkszdm9407/13/2023AC (premature atrial contraction)07/13/20235240Ciuzhqu36/17/2024epression, recurrent 06/09/20239349Jcrxkctvj31/17/2024Essential ppkmcutcwcly02/17/2024utonomic sodcliaxbib28/09/2024Obesity, Class III, BMI 40-49.9 (morbid obesity)09/07/2022 Obstructive sleep apnea zldrzpry95/28/2022nemia, lwmnydtnukz28/19/2022iscoid lupus tvatmpynzhioe80/24/2022Vitamin D uyljorbfkn28/14/2021hronic bilateral low back pain with bilateral eevdyvhg95/08/2085Rekvjgotmmrhpz13/08/2015Vitamin B12 /08/2015 Resolved Problems ProblemNoted DateDiagnosed DateResolved EherQystpfaljso53/09/202403/09/2024 Family History Medical HistoryRelationNameCommentsNo Known ProblemsBrotherCancerFatherCrohn's diseaseMotherHeart diseaseSisterRelationNameStatusCommentsBrotherFatherMother Sister Social History Tobacco UseTypesPacks/DayYears UsedDateSmoking Tobacco: Every DayCigarettes Smokeless Tobacco: Never Tobacco Cessation:Ready to Q uit: No; Counseling Given: Yes Alcohol UseStandard Drinks/WeekCommentsNever0 (1 standard drink = 0.6 oz pure alcohol)CommentsUnknownSex and Gender InformationValueDate RecordedSex Assigned at BirthNot on fileLegal TjoFdofik26/25/2022 9:42 PM ESTGender Identity Dblniu7302/21/2024 7:13 PM EDTSexual OrientationNot on file Last Filed Vital Signs Vital SignReadingTime TakenCommentsBlood Hsyyvdbx143/6003 3:06 PM EST Bdkxe397907/26/2024 3:06 PM ESTTemperature--Respiratory Rate--Oxygen Saturation-- Inhaled Oxygen Concentration--Zwbjci392 kg (286 lb 12.8 oz)07/26/2024 3:06 PM DXXDcukhp121.2 cm (5' 7 )07/26/2024 3:06 PM ESTBody Mass Index44.9207/26/2024 3:06 PM EST Plan of Treatment DateTypeDepartmentCare Team (Latest Contact Info)Cvxgxdgwybq74/05/2026 11:00 AM ESTOffice Visit [facility] [address] [phone] Lois Arguelles MD [address] [facility] [address] [place] [address] Health MaintenanceDue DateLast DoneCommentsHIV Okvhoesnq00/14/1981Lipid Panel 1980MMR Vaccines (1 of 1 - Standard series)1981Hepatitis C Screening 1998Hepatitis B Vaccines (1 of 3 - 19+ 3-dose series)10/05/1999 Pneumococcal Vaccine: Pediatrics and At-Risk Adult Patients (1 of 2 - PCV) 10/05/1999Zoster Vaccines (1 of 2)10/05/1999HPV/Qxgzyt6610/04/2001DTaP/Tdap/Td Vaccines (1 - Tdap)2002HPV Vaccines (1 - Risk 3-dose Standard series) 10/05/2007Diabetes Ujrgqzymt33/2COVID-19 Vaccine (3 - Pfizer risk series)/07/2022, 02/08/2022Influenza Vaccine (#1)2025 Glcadnaro91/Yearly Adult Fujoeank33/15/970197/5Cervical Cancer Lnylfztmu05/14/2028Pap Smear801/, 05/04/2008HIB Vaccines Aged OutNo longer eligible [...] complete this topic Procedures Procedure NamePriorityDate/TimeAssociated DiagnosisCommentsCONVERTED SENSOR OPERATOR SLXMMODUEuxqcjm96/12/2008 12:00 AM EST from Last 3 Months or Most Recently Relevant to Health Maintenance Results * CONVERTED SENSOR OPERATOR CYTOLOGY (05/04/2008 12:00 AM EST)ComponentValueRef RangeTest MethodAnalysis [...] findings. ? - Signed by: JESSICA ORTIZ Mitch ?05/09/08 Electronically Signed Out By [facility], Cytology/ By the signature on this [...] Source of Specimen A: Unknown Part Type [facility] Department of Pathology [address] COPATHCONVERTED FINAL DIAGNOSISSatisfactory for evaluation. Transformation [...] findings. ? - Signed by: JESSICA ORTIZ [facility] ?05/09/08 [facility] COPATHCONVERTED CLINICAL DIAGNOSIS-HISTORY- HISTORY & [...] 0750 ??JESSICA ORTIZ ? SOUT ?05/09/08 1524 ??JESSICA ORTIZ ?- [place] Conversion Report - [facility] COPATHCONVERTED FINAL REPORT PDF LINK TO COPY AND PASTE \copathshare\copath\PDF \[id number].pdfLANCASTER RE[facility]ILITATION [facility] COPATHSpecimen (Source) Anatomical Location / LateralityCollection Method / VolumeCollection Time Received TimeUnrecognized Part Type05/04/200812/ 11:28 AM EST Narrative Authorizing ProviderResult TypeResult StatusCopath ConversionLAB CYTOLOGY ORDERABLESFinal ResultPerforming OrganizationAddressCity/State/ZIP CodePhone Number [facility] COPATH [address] [place] [address] from Last 3 Months or Most Recently Relevant to Health Maintenance Insurance Care Teams Team MemberRelationshipSpecialtyStart DateEnd Gay De La Torre QUALITY CONTROL PROJECTIONIST-DATABASE MODELER [address] [place] [address] PCP - General07/13/23 Michelle Jasmine QUALITY CONTROL PROJECTIONIST-DATABASE MODELER Nurse PractitionerCardiology06/08/23 Kenneth Patel MD Consulting PhysicianCardiology06/23/23
--- OUTSIDE RECORDS SUMMARY | 2025-05-19 06:03 | XMS_ITS | Encounter Summary ---
Author Organization [facility] Address [address] [facility] [place] [address] Care Team Providers Care Cruise Agent Name Role Phone Gay De La Torre MD Unavailable [phone] Manuel Klein MD Primary Care Provider [phone] Encounter Details DateTypeDepartmentCare Team (Latest Contact Info)Hfgpazllhmo89/23/2025Telephone [facility] [address] [facility] [address] [place] [phone] Evy Gee LPN Social History Tobacco UseTypesPacks/DayYears UsedDateSmoking Tobacco: Every MyrCeecrgsbga658 Started: 05/24/1995Smokeless Tobacco: Never Comments:Current smoker, carlos ryday, 11-20 cigarettes/day Alcohol UseStandard Drinks/WeekCommentsNever0 (1 standard drink = 0.6 oz pure alcohol)Caffeine intake : > 4 cups per dayCommentsNoSex and Gender InformationValueDate RecordedSex Assigned at BirthNot on fileLegal SexFemale 08/05/2022 7:18 PM EDTGender IdentityNot on fileSexual OrientationNot on file documented as of this encounter Miscellaneous Notes * Telephone Encounter - Evy Gee LPN - 05/15/2025 8:36 AM EST T/C from pt, tearful, stating she has a very painful HS flare on her buttocks and she cannot sit down. Added to schedule today at 11:25 am. documented in this encounter Plan of Treatment DateTypeDepartmentCare Team (Latest Contact Info)Ilcvtqxxrzs30/08/2025 11:00 AM ESTOffice Visit [facility] [place] [facility] [address] [place] [phone] Cynthia English MD [address] [place] [address] documented as of this encounter Visit Diagnoses Not on filedocumented in this encounter Care Teams Team MemberRelationshipSpecialtyStart DateEnd Manuel Klein MD [address] [place] [phone] PCP - GeneralFamily Qwlcoxgj71/17/25 Gay De La Torre MD [address] [place] [address] Referring PhysicianFamily Medicine07/18/24documented as of this encounter
--- OUTSIDE RECORDS SUMMARY | 2025-05-19 06:03 | XMS_ITS | Clinical Summary ---
Author Organization [facility] Address [id number] [place] [address] Care Team Providers Care Assistant Fitness Manager Name Role Phone Unavailable Primary Care Provider Unavailabl e Allergies Active AllergyReactionsCriticalityNoted QzlqQqmkjrfcRdnaitltzwbJvz98/12/2022 Other Reaction(s): Unknown, Unknown Reaction Other Reaction(s): [...] just thinks she just experienced side effects. Nmexnpe2105/31/2014 Other Reaction(s): jittmayra, Other: See Comments, Trouble [...] as needed.Active Active Problems ProblemNoted DateDiagnosed DateLupus mhckgpwpfldul08/14/2024Sacroiliitis 04/06/2024hronic pain mukjshxc31/14/2024aynaud's disease without gangrene 04/06/2024 Assessment & Plan (04/06/2024 10:10 AM EST): We will get lower extremity PVR with cold immersion test. I counseled her on the diagnosis and identifying and avoiding provoking factors. I also counseled her that managing her SLE and autoimmune connective tissue disorders is balderrama for managing her Raynaud's. All her questions were answered. Degenerative disc disease, qcwnpe3711/08/2023urrent sumdom6507/06/2023 Overview (04/06/2024): Added secondary to documentation in Social History. Added secondary to documentation in Social History. Cytomegalovirus mzetkndtk27/13/2024hronic fatigue and elvxigs29/ Ccfzpswor75/17/4507Jjtmjxk53/17/2024utonomic pqmfbhdojot32/09/2024utoimmune wwdjobe0006/01/2023Systemic lupus eubobzrrqhito94/03/8756Lwcvynqzdyae72/03/2022 Rheumatoid syogmbkii74/05/2022ilateral leg ygjutmfr28/13/2021 Social History Tobacco UseTypesPacks/DayYears UsedDateSmoking Tobacco: Every DayCigarettes Smokeless Tobacco: Never Tobacco Cessation:Ready to Q uit: Not Asked; Counseling Given: Not Answered ChildcareAnswerDate QwvannyaLypiodrrySvsgcef17/12/2019EmploymentAnswerDate ZljcpxbcHigkhgxyveWxavfkt53/12/2019Hunger ScreeningAnswerDate RecordedWithin the past 12 months we worried whether our food would run out before we got money to buy more.Never True04/06/2024Within the past 12 months the food we bought just didn't last and we didn't have money to get more.Never True04/06/2024 CommentsUnknownSex and Gender InformationValueDate RecordedSex Assigned at Not on fileLegal KsbEqbpfy20/09/2017 3:06 PM ESTGender IdentityNot on fileSexual OrientationNot on file Last Filed Vital Signs Vital SignReadingTime TakenCommentsBlood Yvaxvkce954/80106/06/2023 10:00 AM EST Inlbt524904/06/2024 10:00 AM TVXVvexcmtwmjr85.1 ??C (97 ??F)04/06/2024 10:00 AM ESTRespiratory Rate--Oxygen Fztapcdgwe78%04/06/2024 10:00 AM ESTInhaled Oxygen Concentration--Vdzomy801.7 kg (275 lb)04/06/2024 10:00 AM YHAJpebru110.2 cm (5' 7 )04/06/2024 10:00 AM ESTBody Mass Index43.0704/06/2024 10:00 AM EST Plan of Treatment Health MaintenanceDue DateLast DoneCommentsDepression Mhcllcckw60/14/1993 DTaP,Tdap and Td Vaccines (1 - Tdap)10/05/1999COVID-19 Vaccine (6 season), 02/08/2022, 05/26/2021, Additional history exists Influenza Ipixoen92/01/2025Adult BMI Jsytrakfq39/Tobacco Lynnaxjuw29ap Sm[employer] Not on file Insurance
--- OUTSIDE RECORDS SUMMARY | 2025-05-19 06:03 | XMS_ITS | Encounter Summary ---
Author Organization [facility] Address [address] [place] [address] Care Team Providers Care Newspaper Editor Managing Name Role Phone Manuel Klein MD Unavailable [phone] Manuel Klein MD Primary Care Provider +-4 Manuel Klein MD Unavailable [phone] Source Comments In the event this information is protected by the Federal Confidentiality of Alcohol and Drug AbusePatient Records regulations: The Federal rules restrict any use of the information to criminally investigate or prosecute any alcohol or drug abuse patient.[facility] Encounter Details DateTypeDepartmentCare Team (Latest Contact Info)Mtfmlguqhtw32/18/2025Orders Only Hematology/Oncology [address] [place] [address] Fara Lopez APRN.UPPER CUTTER MACHINE [address] [place] [address] Frequent infections (Primary Dx); Hypogammaglobulinemia (HCC); Bilateral leg weakness; Discoid lupus erythematosus Social History Tobacco UseTypesPacks/DayYears UsedDateSmoking Tobacco: Every WdlUhrdnydzft498 Smokeless Tobacco: NeverAlcohol UseStandard Drinks/WeekCommentsNo0 (1 standard drink = 0.6 oz pure alcohol)PHQ-2AnswerDate RecordedPHQ-2 agnmu5144Area Deprivation IndexAnswerDate RecordedNational Score (1-100), lower number is lower dizx716009/24/2022State Score (1-10), lower number is lower aznd964 Data from: https://www.neighborhoodatlas.medicine.[facility]/. Last address used for pqu[address]3CommentsNoSex and Gender InformationValueDate RecordedSex Assigned at BirthNot on fileLegal SexFemale 05/31/2014 2:51 PM ESTGender IdentityNot on fileSexual OrientationNot on file documented as of this encounter Functional Status * Are you deaf or do you have serious difficulty hearing?AnswerDate of SzrcinyzboBzmyfgDu70/04/2015 11:14 AM Chichi Stevens Ma * Are you blind or do you have serious difficulty seeing, even when wearing glasses?AnswerDate of YgykhzqkzxGhjrjfJu73/04/2015 11:14 AM Chichi Stevens Ma * Do you have serious difficulty walking or climbing stairs?AnswerDate of ImuhndxeskJfrzvySmy47/04/2015 11:14 AM Chichi Stevens Ma * Do you have difficulty dressing or bathing?AnswerDate of AssessmentAuthorYes 12/25/2014 11:14 AM Chichi Stevens Ma * Because of a physical, mental, or emotional condition, do you have difficulty doing errands alone such as visiting a doctor's office or shopping?AnswerDate of EbnvlnysfaEwrwalVy61/04/2015 11:14 AM Chichi Stevens Ma documented as of this encounter Mental Status * Because of a physical, mental, or emotional condition, do you have serious difficulty concentrating, remembering, or making decisions?AnswerEntry Date WoamzpLl45/04/2015 11:14 AM Chichi Stevens Ma documented in this encounter Plan of Treatment DateTypeDepartmentCare Team (Latest Contact Info)Ecsmsihlwqn59/31/2025 9:00 AM [facility] Hematology/Oncology [address] [place] [address] [place] [address] IVIG Q 3 WEEKS05/31/2025 2:00 PM [facility] Hematology/Oncology [address] [place] [address] BENLYSTA -06/13/2025 8:45 AM ESTOffice Visit [facility] [address] [place] [address] 12 week follow up IVIG06/13/2025 9:00 AM ESTVisit (SP) Office Hematology/Oncology [address] [place] [address] Fara Lopez, MAURILIO.UPPER CUTTER MACHINE [address] [place] [address] 12 week follow up IVIG06/13/2025 9:30 AM [facility] Hematology/Oncology [address] [place] [address] [place] [address] 12 week follow up IVIG06/28/2025 2:00 PM [facility] Hematology/Oncology [address] [place] [address] BENLYSTA -07/26/2025 2:00 PM [facility] Hematology/Oncology [address] [place] [place] [address] BENLYSTA -documented as of this encounter Visit Diagnoses Diagnosis Frequent infections- Primary Hypogammaglobulinemia (HCC) Hypogammaglobulinaemia, unspecified Bilateral leg weakness Other musculoskeletal symptoms referable to limbs Discoid lupus erythematosus Lupus erythematosus documented in this encounter Care Teams Team MemberRelationshipSpecialtyStart DateEnd Date Manuel Klein MD PCP - GeneralFamily Tfrzgoiy12/7/22 Manuel Klein MD ReferringFamily Medicine02/12/22 Manuel Klein MD [address] [place] [address] ReferringFamily Medicine07/06/24documented as of this encounter
--- OUTSIDE RECORDS SUMMARY | 2025-05-19 06:03 | XMS_ITS | Encounter Summary ---
Author Organization [facility] Address [address] [place] [address] Care Team Providers Care Agricultural Service Worker Name Role Phone Manuel Klein MD Unavailable [phone] Manuel Klein MD Primary Care Provider [phone] Manuel Klein MD Unavailable [phone] Source Comments In the event this information is protected by the Federal Confidentiality of Alcohol and Drug AbusePatient Records regulations: The Federal rules restrict any use of the information to criminally investigate or prosecute any alcohol or drug abuse patient.[facility] Encounter Details DateTypeDepartmentCare Team (Latest Contact Info)Sucjszcznkm70/23/2025Orders Only Hematology/Oncology [facility] [place] [address] Jose Cho MD [address] [place] [address] [place] [address] Social History Tobacco UseTypesPacks/DayYears UsedDateSmoking Tobacco: Every VxsWmdgunvcks390 Smokeless Tobacco: NeverAlcohol UseStandard Drinks/WeekCommentsNo0 (1 standard drink = 0.6 oz pure alcohol)PHQ-2AnswerDate RecordedPHQ-2 ezmum0404Area Deprivation IndexAnswerDate RecordedNational Score (1-100), lower number is lower txyi521509/24/2022State Score (1-10), lower number is lower rgyt055 Data from: https://www.neighborhoodatlas.medicine.[facility]/. Last address used for [address]3CommentsNoSex and Gender InformationValueDate RecordedSex Assigned at BirthNot on fileLegal SexFemale 05/31/2014 2:51 PM ESTGender IdentityNot on fileSexual OrientationNot on file documented as of this encounter Functional Status * Are you deaf or do you have serious difficulty hearing?AnswerDate of DoqcxujxwmQyboarLg05/04/2015 11:14 AM Chichi Stevens Ma * Are you blind or do you have serious difficulty seeing, even when wearing glasses?AnswerDate of ArsimdfprmJmmqjlRo42/04/2015 11:14 AM Chichi Stevens Ma * Do you have serious difficulty walking or climbing stairs?AnswerDate of JwljvuimpcMokkfxDds57/04/2015 11:14 AM Chichi Stevens Ma * Do you have difficulty dressing or bathing?AnswerDate of AssessmentAuthorYes 12/25/2014 11:14 AM Chichi Stevens Ma * Because of a physical, mental, or emotional condition, do you have difficulty doing errands alone such as visiting a doctor's office or shopping?AnswerDate of JbkhqwrqikIzvyojBi02/04/2015 11:14 AM Chichi Stevens Ma documented as of this encounter Mental Status * Because of a physical, mental, or emotional condition, do you have serious difficulty concentrating, remembering, or making decisions?AnswerEntry Date CgylbsJu98/04/2015 11:14 AM Chichi Stevens Ma documented in this encounter Plan of Treatment DateTypeDepartmentCare Team (Latest Contact Info)Hzpttptpagg34/31/2025 9:00 AM [facility] Hematology/Oncology [address] [place] [address] [place] [address] IVIG Q 3 WEEKS05/31/2025 2:00 PM [facility] Hematology/Oncology [address] [facility] [address] BENLYSTA -06/13/2025 8:45 AM ESTOffice Visit [facility] [address] [place] [address] 12 week follow up IVIG06/13/2025 9:00 AM ESTVisit (SP) Office Hematology/Oncology [address] [place] [address] Fara Lopez, MAURILIO.STONE CHIMNEY MASON [address] [place] [address] 12 week follow up IVIG06/13/2025 9:30 AM [facility] Hematology/Oncology [address] [place] [address] 12 week follow up IVIG06/28/2025 2:00 PM [facility] Hematology/Oncology [address] [facility] [address] BENLYSTA -07/26/2025 2:00 PM [facility] Hematology/Oncology [address] [place] [address] BENLYSTA -documented as of this encounter Visit Diagnoses Not on filedocumented in this encounter Care Teams Team MemberRelationshipSpecialtyStart DateEnd Date Manuel Klein MD PCP - GeneralFamily Qgclihus25/7/22 Manuel Klein MD ReferringFamily Medicine02/12/22 Manuel Klein MD [facility] [place] [address] ReferringFamily Medicine07/06/24documented as of this encounter
--- OUTSIDE RECORDS SUMMARY | 2025-05-19 06:03 | XMS_ITS | Encounter Summary ---
Author Organization [facility] Address [address] [facility] [place] [address] Care Team Providers Care Textile Coating Machine Operator Name Role Phone Gay De La Torre MD Unavailable [phone] Manuel Klein MD Primary Care Provider [phone] Encounter Details DateTypeDepartmentCare Team (Latest Contact Info)Okxireqinud99/23/2025Travel Social History Tobacco UseTypesPacks/DayYears UsedDateSmoking Tobacco: Every OswTuftxswbwo171 Started: 05/24/1995Smokeless Tobacco: Never Comments:Current smoker, carlos mars, 11-20 cigarettes/day Alcohol UseStandard Drinks/WeekCommentsNever0 (1 standard drink = 0.6 oz pure alcohol)Caffeine intake : > 4 cups per dayCommentsNoSex and Gender InformationValueDate RecordedSex Assigned at BirthNot on fileLegal SexFemale 08/05/2022 7:18 PM EDTGender IdentityNot on fileSexual OrientationNot on file documented as of this encounter Plan of Treatment DateTypeDepartmentCare Team (Latest Contact Info)Xhzcgpztgqf89/04/2026 11:00 AM ESTOffice Visit [facility] [address] [facility] [address] [place] [phone] Cynthia English MD [address] [facility] [address] [place] [address] documented as of this encounter Visit Diagnoses Not on filedocumented in this encounter Care Teams Team MemberRelationshipSpecialtyStart DateEnd Manuel Klein MD [address] [facility] [place] [address] PCP - GeneralFamily Khzflvha89/17/25 Gay De La Torre MD [address] [place] [address] Referring PhysicianFamily Medicine07/18/24documented as of this encounter
--- OUTSIDE RECORDS SUMMARY | 2025-05-19 06:03 | XMS_ITS | Clinical Summary ---
[facility] Address [address] [place] [address] Care Team Providers Care Market Risk Manager Name Role Phone Gay De La Torre Lucinda [facility] Primary Care Provider [phone] Allergies Active AllergyReactionsCriticalityNoted JhctRisztjrhBdehgmljtysGyk19/12/2022 Other Reaction(s): Unknown Patient states it was [...] she just experienced side effects. CodeineShortness of ChcgqbIccv58/22/2025 Other Reaction(s): jittery Sjqctxnehdk82/17/2023 Other Reaction(s): Unknown InkolYjjzYqh21/08/2015 Other Reaction(s): Rash Patient states it was [...] just thinks she just experienced side effects. Yahlxcdapg45/16/2024 Other Reaction(s): Other Kvuscztpfene14/16/2024 Other Reaction(s): Other Sulfa StmvllozharAyuxlpjy89/22/2025Sulfamethoxazole-TrimethoprimDyspepsia, KotfaoohGyi67/17/2021 Patient states it was a long time ago and she did not have a severe reaction. She does not believe she is allergic, she just thinks she just experienced side effects. Lnagvnwmjbgo88/22/2025 Other Reaction(s): unknown Medications MedicationSigDispense QuantityRefillsLast FilledStart [...] capsule by mouth daily.02/22/2025tive Ergocalciferol 1.25 MG (30296 UT) capsule Take 1 capsule by mouth [...] Take 1 tablet by mouth daily.11/17/2024tive Nystatin 748834 UNIT/ML oral suspension Swish and spit 4 [...] route once.11/23/2024tive Active Problems ProblemNoted DateDiagnosed DateFatty liver03/14/20253102Xhdvybcbunwx04/22/2025 Nontoxic single thyroid ewomit0503/14/2025Type 2 diabetes gxmrugkk49/22/2025 Pilonidal awlblhw9902/28/20250028Rjhsqytntfxkuzrpeymxp30/09/2024. difficile diarrhea 03/07/20249473Xahyapwc60/15/2024uct ectasia of juomgu2503/07/2024Gastroesophageal reflux smzsiul7403/07/2024Insulin ikinszusop99/15/2024Facet arthritis of lumbar lxykel7212/15/2023ischarge from xicogy1411/15/2023Irregular periods/menstrual rmnzes5811/15/20239866Gsxdsgqdeymw10/17/2024Lumbosacral /17/2024 Ifldcwtozog01/02/9013Uwjavx97/19/2024ure ggnchilsvszsectyuslv01/19/2024Thyroid qqyzwj1508/10/2023AC (premature atrial contraction)07/13/2023aroxysmal supraventricular gfdhaottmag13/20/2024Shortness of aplsrv0507/13/2023ervical icfiumswmtvyz39/13/2024hronic jgxoomaaizxxizvmjy23/13/2024Tobacco use disorder 07/06/2023 Overview (03/14/2025): Added secondary to documentation in Social History. Added secondary to documentation in Social History. Cytomegalovirus /13/2024isturbance of skin qozdaxnia74/13/2024 Enthesopathy of hip hyvkmx0507/06/2023LPRD (laryngopharyngeal reflux disease) 07/06/2023Lumbosacral radiculopathy at L507/06/20230975Zimbreu94/13/2024Oral lesion 07/06/2023ain, hip07/06/2023hronic fatigue /18/6173Fzpqlwx65/17/2024 Depression, yldnszihd16/17/2024Essential uscfvhlryjub46/17/2024utonomic wdogsvwxkno41/09/2024Nonintractable episodic cwktonmy22/09/2024izziness 06/01/20232484Zxfcjowxsun43/09/2024ilateral wrist pain02/04/2023Raynaud's disease 02/04/2023Steroid-induced rjifmdxbzung69/14/2023Excessive and frequent menstruation with irregular cycle09/24/20226229Uedlkvs83/17/2023NA positive 06/15/2022Sleep apnea05/20/2022omnolence, eovkgle6905/20/2022nemia, unspecified 03/11/2022Megaloblastic anemia due to vitamin B12 qtnrrqbmyd26/12/2022iscoid lupus rgayjtsdtqkxs42/24/5580Dyncopgwpghi70/03/2022ystemic lupus erythematosus 10/24/2021heumatoid mpkkjruul76/05/2022Vitamin D /14/2021ilateral leg vivnrqyh14/13/2021hronic pain of toes of both feet03/05/2021High total serum IgM03/05/2021Hair loss03/05/2021ash and nonspecific skin eruption 03/05/2021econdary osteoarthritis of multiple sites03/05/2021welling of lymph nodes03/05/2021ilateral viqslnqszwcl94/22/1070Dpljhl10/08/2015Chronic pain sivunrnq88/08/6055Bxaptrajiwtdwd05/08/2015Vitamin B12 ejtpazjvez24/08/2015 Encounters DateTypeDepartmentCare FfifIihwmefrafc66/27/2025Telephone [facility] Infectious Disease [address] [place] [address] Stacy Boyer Ruldsfb1503/14/2025 12:00 PM EDTOffice Visit [facility] [address], [place] [address] Colleen Hamilton MD Nipple discharge in female (Primary Dx); Type 2 diabetes mellitus with other specified complication, unspecified whether senior living insulin use; Obesity with serious comorbidity in pediatric patient, unspecified obesity class, unspecified obesity type; IgG deficiency; Recurrent infections; Pilonidal abscess; Tobacco use disorderfrom Last 3 Months Social History Tobacco UseTypesPacks/DayYears UsedDateSmoking Tobacco: Every DayCigarettes Smokeless Tobacco: Never Tobacco Cessation:Ready to Q uit: No; Counseling Given: No CommentsNoSex and Gender InformationValueDate RecordedSex Assigned at BirthNot on fileLegal FfgKyszyg33/04/2024 9:51 AM ESTGender IdentityNot on file Sexual OrientationNot on file Last Filed Vital Signs Vital SignReadingTime TakenCommentsBlood Ahomxvzk133/8203/14/2025 11:52 AM EDT Msoip045503/14/2025 11:52 AM CVNKthawbjxtez43 ??C (98.6 ??F)03/14/2025 11:52 AM EDTRespiratory Fbry1873 11:52 AM EDTOxygen Lowwwwblrj97%03/14/2025 11:52 AM EDTInhaled Oxygen Concentration--Ctdjkn934.8 kg (290 lb 9.6 oz)03/14/2025 11:52 AM EDTHeight--Body Mass Index-- Plan of Treatment Health MaintenanceDue DateLast DoneCommentsHEPATITIS C VIRUS BUJJQZDYR95/14/1981 IPCWFQS00 1980HIV SCREENING VLFIZOWOCZ58/14/1996HEP B VACCINE (1 of 3 - 19+ 3-dose series)10/05/1999PNEUMOCOCCAL VACCINE SERIES (1 of 2 - PCV)10/05/1999TDAP (ADULT)10/05/1999ZOSTER (SHINGLES) VACCINE (1 of 2)10/05/1999CERVICAL CANCER SCREENING OHHRSTUPWT32/14/2002HPV VACCINE (1 - 3-dose SCDM series)10/05/2007 LIPID ZHBRNBQZW44/14/2021MAMMOGRAM SCREENING TSBZZSNHSQ33/14/2021OVID-19 VACCINE ( season)51, 02/08/2022, 05/26/2021, Additional history existsINFLUENZA VACCINE (#1)01/22/2025 Procedures Procedure NamePriorityDate/TimeAssociated DiagnosisCommentsCULTURE WOUNDToday 03/14/2025 1:00 PM EDT Nipple discharge in female CULTURE IQSRCKgaay54/22/2025 1:00 PM EDT Nipple discharge in female REFERRAL (OUTSIDE)Slrkalg2703/08/2025 2:11 PM EDTfrom Last 3 Months Results * CULTURE WOUND (03/14/2025 1:00 PM EDT) Only the most recent of2 resultswithin the time period is included. ComponentValueRef RangeTest MethodAnalysis TimePerformed AtPathologist Signature SPECIMEN DESCRIPTIONWOUNDPROMEDICA BAY [facility]ARK [facility] - [address] - BUCYRUSCOMMENTLEFT NIPPLE DISCHARGEBUOHIOHEALTH GRANT [facility] - [address] - BUCYRUSGRAM STAINNO[address]Comment: WBC'S SEEN NO ORGANISMS SEEN RESULT-CULTNO GROWTH [address]Comment:Testing performed at [place] [address] Report Lyuzcs4303/16/2025[address] Comment:FINALSpecimen (Source)Anatomical Location / LateralityCollection Method / VolumeCollection TimeReceived TimeWoundSPECIMEN COLLECTION BY DRAINAGE / Gnzrncx4903/14/2025 1:00 PM EDT1 1:18 PM EDT Narrative Authorizing ProviderResult TypeResult StatusNancy F Alfonso MDMICROBIOLOGY - GENERAL ORDERABLESFinal ResultPerforming OrganizationAddressCity/State/ZIP Code Phone Number [facility] - [address] [place] [address] [facility] - [address] - [address] [address] [place] [address] * REFERRAL (OUTSIDE) (03/08/2025 2:11 PM EDT) Narrative Authorizing ProviderResult TypeResult StatusHistorical ProviderOSU OUTPATIENT REFERRALSFinal Result from Last 3 Months Insurance Care Teams Team MemberRelationshipSpecialtyStart DateEnd Date Gay De La Torre, TRUE [address] [place] [address] PCP - GeneralNurse Practitioner - Exklii36/4/24
--- OUTSIDE RECORDS SUMMARY | 2025-05-19 06:04 | XMS_ITS | Clinical Summary ---
Author Organization [facility] Healthcare Address [address] [place] [address] Care Team Providers Care Chemistry Account Manager Name Role Phone Gay Enciso MD Unavailable [phone] Manuel Klein MD Primary Care Provider [phone] Allergies Active AllergyReactionsCriticalityNoted XdljSlviszumHxeosajqbpjRjr50/12/2022 Other Reaction(s): Unknown Patient states it was a long time ago and she did not have a severe reaction. ??She does not believe she is allergic, she just thinks she just experienced side effects. Other Reaction(s): Unknown Reaction Dshtlub9905/31/2014 Other Reaction(s): Other: See Comments, Trouble breathing ?... Make her feel ??Jittery. ??OTHERWISE, NO SOB/WHEEZING, and NO DYSPHAGIA, NO URTICARIA, NO ANGIOEDEMA AdtfhqdhaxwGdptjfh73/17/8114QwcenUsdmLby32/08/2015 Other Reaction(s): Rash Patient states it was a long time ago and she did not have a severe reaction. ??She does not believe she is allergic, she just thinks she just experienced side effects. BcwwcqvdslQjwki78/16/2024 Other Reaction(s): Other Kgqiqgonrhlp58/16/2024 Other Reaction(s): Other Gpjgxocgodqztokt67/17/2023 Other Reaction(s): gi Other Reaction(s): lymph swelling Sulfamethoxazole-RhrowpqcxmvaFuyedcoaNfz88/03/2016 Other Reaction(s): Other, sick Patient states it was a long time ago and she did not have a severe reaction. ??She does not believe she is allergic, she just thinks she just experienced side effects. Lfsknwjquepz11/17/2023 Other Reaction(s): gi Other Reaction(s): lymph swelling Medications MedicationSigDispense QuantityRefillsLast FilledStart DateEnd DateStatus Triamcinolone Acetonide 0.025 % lotion 1 pinqomtnvov18/31/2023ctive ibuprofen 200 MG tablet every 8 (eight) [...] the morning.01/15/2023ctive ergocalciferol (Vitamin D2) 1.25 MG (21019 UT) capsule Take 50,000 Units by mouth [...] Take 1 tablet by mouth in the morning.5Active cephalexin (Keflex) 500 MG capsule Indications:Hidradenitis suppurativaTake 1 tablet bid x 14 days 28 capsule 5ActiveHospital, Clinic, or Other Facility Administered Medication Ordered DoseRouteFrequencyStart DateEnd DateStatus triamcinolone acetonide (Kenalog) injection 2.5 mg Indications:Hidradenitis suppurativa,Pain2.5 mgINTRA-NRWWRAEssr65/03/2025 05/15/2025Discontinued triamcinolone acetonide (Kenalog) injection 5 mg Indications:Hidradenitis suppurativa5 mgINTRA-ABPZDVRzaf89 Ended Active Problems ProblemNoted DateDiagnosed DateAbdominal mass03/14/20256421Nioylugy92/22/2025 Toeajhyqhvxo40/22/2315Hekwrxlyy72/22/2025Fatty liver03/14/2025Leukocytosis 03/14/2025Nontoxic single thyroid rfxcek2903/14/2025Type 2 diabetes mellitus 03/14/2025Pilonidal iarwfgs5902/28/2025Lupus ycjzawotifgqn00/14/2024Sacroiliitis 04/06/2024Frequent kltsuyvfgv06/09/9427Oeensmpklkpfhxsgrgjde04/09/2024. difficile kpqbtswy88/15/3490Qhmycgmj27/15/2024uct ectasia of hrkeml1003/07/2024 GERD (gastroesophageal reflux disease)03/07/2024Insulin kqlvkaxoby23/15/2024 Facet arthritis of lumbar kdgoeb3312/15/2023Nipple weqwcvynm96/24/2024Irregular periods/menstrual peifmk9311/15/2023egenerative disc disease, hztraj2311/08/2023 Nmlotmhdpqkl44/17/2024History of vitamin D aavfbhnmyb74/14/2024rediabetes 08/24/2023ure hypercholesterolemia, axrbaqqdavh81/19/1005Siyfkb09/19/2024 Thyroid fqylaw1608/10/2023Shortness of vqjsgx9807/13/2023aroxysmal supraventricular smsenkuufcm11/20/2024AC (premature atrial contraction)07/13/2023ervical qljpzmrpwtlyz95/13/2024Lumbosacral radiculopathy at L507/06/2023hronic osgndpsodpaqbccovg98/13/2024urrent ervrjc2707/06/2023 Overview (07/06/2023): Added secondary to documentation in Social History. Tobacco use haqvmzmt73/13/2024ytomegalovirus xlqlkiwow00/13/2024isturbance of skin umpckkjfp10/13/2024Enthesopathy of hip psmkzy1507/06/2023LPRD (laryngopharyngeal reflux disease)07/06/20239211Nvxirxe16/13/2024Oral lesion 07/06/2023ain, hip07/06/2023hronic fatigue and gsicrdk5006/10/2023nxiety 06/09/2023epression, khdqyyjdl02/17/2024Essential olenzxwlkkwm19/17/2024 Autoimmune dsynenp5306/01/20237537Blbztuawokdm35/09/2024utonomic dysfunction 06/01/20235226Zgtrstkih39/09/4228Olowlmosrxz94/09/2024Nonintractable episodic kgscneen45/09/2024ilateral wrist pain02/04/2023Long term current use of systemic aogifkik98/14/2023Steroid-induced mlpgwhzcdhup40/14/2023Raynaud's disease without phzkgszu94/14/2023Excessive and frequent menstruation with irregular cycle09/24/2022Obesity, Class III, BMI 40-49.9 (morbid obesity) 09/07/2022NA iszfyenf92/23/2023Long-term use of high-risk xncdlhujsl90/23/2023 Obstructive sleep apnea etzrzxle12/28/2022omnolence, gvdfigs1905/20/2022nemia, etroaatyjxf70/19/2022Megaloblastic anemia due to vitamin B12 deficiency 03/04/2022iscoid lupus nmfzzxpmsqyjb59/24/2022Vitamin D guzvyxjjpb23/14/2021 Bilateral leg adzyxjyv59/13/2021hronic pain of toes of both feet03/05/2021 Elevated sed rate03/05/2021High total serum IgM03/05/2021Family history of Crohn's gzopegc3403/05/2021Hair loss03/05/2021ong-term use of Xgxnfmmsz03/13/2021 Rash and nonspecific skin wldentnw32/13/2021econdary osteoarthritis of multiple sites03/05/2021welling of lymph nodes03/05/20211870Xdiwtl79/08/2015Hyperlipidemia 05/31/2014Vitamin B12 mvncsbachc75/08/2015 Encounters DateTypeDepartmentCare OzeeMiwqajjcioq37/23/2025 11:25 AM ESTOffice Visit [facility] [address] [place] [phone] Cynthia English MD Hidradenitis suppurativa (Primary Dx); Pain05/15/20258328Tfvrdk03/23/2025Telephone [facility] [address] [place] [phone] Evy Gee LPN 04/09/2025 9:30 AM ESTOffice Visit [facility] [address] [facility] [facility] [address] [place] [address] Terence Blum MD Pilonidal abscess (Primary Dx)04/09/20258062Cuflvc10/13/2025 9:20 AM ESTOffice Visit [facility] [address] [place] [address] Oly Plascencia PA Discharge from left nipple; Discharge from right qheixb1404/05/2025linisync Result Encounter [facility] External Department Unsolicited Oly Plascencia PA 04/05/2025amboo flowsheet [facility] [address] [place] [address] Oly Plascencia PA 03/23/2025 9:45 AM EDTOffice Visit [facility] [address] [place] [address] Terence Blum MD Pilonidal abscess (Primary Dx)03/23/20256524Gpdcbi99/30/2025linisync Result Encounter [facility] External Department Unsolicited Timmis, Mary Grace H, MD 03/14/2025bstract [facility] [address] [place] [address] Luan Valdivia, DO 03/13/2025Telephone [facility] [address] [place] [address], [place] [phone] Elizabeth Lockhart [place] Final path came back from [facility]03/09/2025bstract [facility] [address] [place] [address] Luan Valdivia, DO 03/07/2025Orders Only [facility] [address] [place] [address], [place] [phone] Terence Blum MD 03/06/20255242Mjiayh89/13/2025Telephone [facility] [address] [place] [phone] Elizabeth Lockhart MT Questions on medications.03/02/2025External Result Encounter [facility] External Department Unsolicited Terence Blum MD 02/28/2025 9:30 AM EDTConsult [facility] [address] [place] [address], [place] [phone] Terence Blum MD Pilonidal abscess (Primary Dx); Pilonidal cyst02/28/20258053Bxhxrb27/07/7840Jhtkhb07/06/2743Jausvq56/03/2025Travel 02/19/2025Travelfrom Last 3 Months Family History Medical HistoryRelationNameCommentslung issueChild1 son with lung issue, 3 daughtersNo Known ProblemsDaughter 1CancerFatherWilliamPancreatitisFatherWilliam Stomach cancerFatherWilliamDiabetesMaternal GrandmotherClelauraHeart failure Maternal GrandmotherClelauraRheum arthritisMaternal GrandmotherClelauraCrohn's diseaseMotherSallyThyroid diseaseMotherSallyNo Known XpzzyjmeUlzqrn6Isoe disease SonRelationNameStatusCommentsChildAliveDaughter 1Cydfm9 daughtersDaughter 2Alive Daughter 3AliveFatherWilliamDeceasedMaternal GrandmotherClelauraMotherSallyAlive Mother's SisterDeceasedSisterAlive1 sisterSonAlive1 son Social History Tobacco UseTypesPacks/DayYears UsedDateSmoking Tobacco: Every RzaAvygmvxden653 Started: 05/24/1995Smokeless Tobacco: Never Tobacco Cessation:Ready to Q uit: Yes; Counseling Given: Yes Comments:Current smoker, everyday, 11-20 cigarettes/day Alcohol UseStandard Drinks/WeekCommentsNever0 (1 standard drink = 0.6 oz pure alcohol)Caffeine intake : > 4 cups per dayCommentsNoSex and Gender InformationValueDate RecordedSex Assigned at BirthNot on fileLegal SexFemale 08/05/2022 7:18 PM EDTGender IdentityNot on fileSexual OrientationNot on file Last Filed Vital Signs Vital SignReadingTime TakenCommentsBlood Dluqczvd653/7810 9:25 AM EDT Jdhig97206 3:04 PM MBSNxolbrpuopi83.1 ??C (98.7 ??F)04/02/2024 1:27 PM ESTRespiratory Ziqz055808/24/2023 8:22 AM EDTOxygen Cudugsmein26%04/02/2024 1:27 PM ESTInhaled Oxygen Concentration--Iprxav255 kg (291 lb)03/23/2025 10:09 AM EDT Rvuzqr473.2 cm (5' 7 )03/23/2025 10:09 AM EDTBody Mass Index45.5803/23/2025 10:09 AM EDT Plan of Treatment DateTypeDepartmentCare Team (Latest Contact Info)Qwvyxkcshyi80/04/2026 11:00 AM ESTOffice Visit [facility] [address] [place] [address] Cynthia English MD [address] [place] [address] Health MaintenanceDue DateLast DoneCommentsInfluenza Vaccine (#1)01/22/2025 Lmysshthh98/15/549125/4Pap Smear8006/06/2024, 3Cervical Cancer Qyeqxzhkl16/20/2028HPV/Qncddp4609/11/2027Pneumococcal Vaccine: Pediatrics (0 to 5 Years) and At-Risk Patients (6 to 64 Years)Aged OutNo longer eligible based on patient's age to complete this topic Procedures Procedure NamePriorityDate/TimeAssociated DiagnosisCommentsANAEROBIC CULTURE Fsovxzq3104/05/2025 10:00 AM EST AEROBIC AAXOUTWMjutvsn65/13/2025 10:00 AM EST US UIRNTAQ3903/22/2025 11:38 AM EDT AEROBIC ELPIDIO CHARGE (NMIC56)Yvdljyx1403/02/2025 5:17 PM EDT ANAEROBIC TYSNVBIUntcafx66/10/2025 5:17 PM EDT AEROBIC HOLHBMVPtidrmp47/10/2025 5:17 PM EDT GRAM IDKPFXhlpmnr51/10/2025 5:17 PM EDT GENERAL PBIEVMTWTFlnazly29/10/2025 11:32 AM EDTPAP QMNHLHfrvvqp84/14/2025 12:00 AM ESTMM TOMOSYNTHESIS DIAGNOSTIC BI04/07/2024 8:40 [...] 5:08 PM EST Authorizing ProviderResult TypeResult StatusAmy Temo PALAB BLOOD ORDERABLES Final ResultPerforming OrganizationAddressCity/State/ZIP CodePhone Number [facility] [place] [facility] * AEROBIC CULTURE (04/05/2025 10:00 AM EST)ComponentValueRef RangeTest Method Analysis TimePerformed AtPathologist SignatureAEROBIC CULTURE ??Aerobic Culture TBHAEROBIC CULTUREMixed skin floraTBHAEROBIC CULTUREPerformed at: - [facility] for RehabilitationTBHAEROBIC [id number] [place], [place] [address]ICEPVWKWDZ CULTURE Shelf Filler: Doyle Mendenhall PhD, Phone: [phone] (Source) Anatomical Location / LateralityCollection Method / VolumeCollection Time Received Time04/05/2025 10:00 AM EST04/05/2025 7:50 PM EST Narrative [facility] - 04/12/2025 5:08 PM EST Authorizing ProviderResult TypeResult StatusAmy Temo PALAB BLOOD ORDERABLES Final ResultPerforming OrganizationAddressCity/State/ZIP CodePhone Number [facility] * US thyroid (03/22/2025 11:38 AM EDT)Anatomical RegionLateralityModalityHead, NeckUltrasoundSpecimen (Source)Anatomical Location / LateralityCollection Method / VolumeCollection TimeReceived Time03/22/2025 11:38 AM EDT Narrative 03/22/2025 11:41 AM EDT [facility] ?[address] ? [place] [address] ? Ultrasound Report ? Signed ? Patient: JONES PANIAGUA ?MR#: [id number] ?? : 1980 ?Acct:[id number] ?? Age/Sex: 44 / F ?ADM Date: 03/22/25 ?? Loc: US ? Attending Dr: Mary Grace Barfield M.D. ? Ordering Physician: Mary Grace Barfield M.D. ?? Date of Service: 03/22/25 ?? Procedure(s): US thyroid ?? Accession Number(s): [id number] ? cc: GAY ENCISO ; Mary Grace Barfield M.D. ? [facility] ? [address] ? [place] [address] ? Patient Name: ?? JONES PANIAGUA ? MRN: [facility]:[id number] ? date: 1980 ?Sex: F ?? Assigned Patient Location: ?? Current Patient Location: RAD ?? Accession/Order Number: [id number] ?? Exam Date: 03/22/2025 ??09:30 ?Report Date: [...] M.D. ??03/22/2025 11:38 AM ? Dictation Location: [facility]02 ? Electronically authenticated by: [id number] ??Y ?? Date: 03/22/2025 ??11:38 ? Dictated By: ?Simin Nelson M.D. ? Signed By: ?03/22/25 1141 ? DD/ 1138 ? TD/TT: ? Pattern Generator Operator: Procedure Note Radiology, Radiologist, MD - 03/22/2025 [place] [address] Ultrasound Report Signed Patient: JONES PANIAGUA BMR#: [id number] : 1980Acct:[id number] Age/Sex: 44 / FADM Date: 03/22/25 Loc: US Attending Dr: Mary Grace Barfield M.D. Ordering Physician: Mary Grace Barfield M.D. Date of Service: 03/22/25 Procedure(s): US thyroid Accession Number(s): [id number] cc: GAY ENCISO ; Mary Grace Barfield M.D. [facility] [place] [address] Patient Name: JONES PANIAGUA MRN: [facility]:[id number] date: 1980 Sex: F Assigned Patient Location: US Current Patient Location: [facility] Accession/Order Number: [id number] Exam Date: 03/22/2025 09:30 Report Date: 03/22/2025 [...] Nelson M.D. 03/22/2025 11:38 AM Dictation Location: [place] [address] Electronically authenticated by: [id number] Y Date: 1:38 Dictated By: Simin Nelson M.D. Signed By:03/22/25 1141 DD/ 1138 TD/TT: Pattern Generator Operator: Authorizing ProviderResult TypeResult StatusHilaeleazar Barfield MDIMAdrienne US PROCEDURES Final Result * (ABNORMAL) AEROBIC ELPIDIO CHARGE (NMIC56) (03/02/2025 5:17 PM EDT)ComponentValue Ref RangeTest MethodAnalysis TimePerformed AtPathologist SignatureAMIKACIN<16 (S)03/04/2025 9:13 AM [facility] CtrAZTREONAM<4(I) 03/04/2025 9:13 AM [facility] CtrCEFEPIME<2(S)03/04/2025 9:13 AM [facility] CtrCEFTAZIDIME<1(I)03/04/2025 9:13 AM [facility] CtrCEFTAZIDIME/AVIBACTAM<4(S)03/04/2025 9:13 AM [facility] CtrCEFTOLOZANE/TAZOBACTAM<2(S)03/04/2025 9:13 AM [facility] CtrCEFTRIAXONE<1(I)03/04/2025 9:13 AM [facility] CtrCIPROFLOXACIN>2(R)03/04/2025 9:13 AM [facility] CtrERTAPENEM<0.5(S)03/04/2025 9:13 AM [facility] CtrGENTAMICIN<2(S)03/04/2025 9:13 AM [facility] CtrLEVOFLOXACIN<0.5(S)03/04/2025 9:13 AM [facility] CtrMEROPENEM<1(S)03/04/2025 9:13 AM [facility]tr MEROPENEM/VABORBACTAM<2(S)03/04/2025 9:13 AM [facility] PIPERACILLIN/TAZOBACTAM<8(I)03/04/2025 9:13 AM [facility] CtrTETRACYCLINE>8(R)03/04/2025 9:13 AM [facility] TIGECYCLINE<2(S)03/04/2025 9:13 AM [facility] CtrTOBRAMYCIN <2(S)03/04/2025 9:13 AM [facility]tr TRIMETHOPRIM/SULFAMETHOXAZOLE<0.5/9.5(S)03/04/2025 9:13 AM [facility] CtrSpecimen (Source)Anatomical Location / Laterality Collection Method / VolumeCollection TimeReceived TimeOtherSpecimen from uterine cervix / Yltweyf1803/02/2025 5:17 PM EDT1 5:38 PM EDTComment: Abscess Narrative Authorizing ProviderResult TypeResult StatusTerence Pacheco MDFIRELANDSFinal ResultPerforming OrganizationAddressCity/State/ZIP CodePhone Number [facility] [address] [place] [address], [facility] [address] [place] [address] * ANAEROBIC CULTURE (03/02/2025 5:17 PM EDT)ComponentValueRef RangeTest Method Analysis TimePerformed AtPathologist SignatureFRMC ORGANISMPrevotella species 03/13/2025 12:54 PM [facility] CtrCOMMENTS.03/13/2025 12:54 PM [facility] CtrQUANTITY OF GROWTHLight Diyqwk4403/13/2025 12:54 PM [facility] CtrSEND TEST TO REF. LABSent to [facility] for [facility]STIAN ID03/13/2025 12:54 PM [facility] CtrComment: Identification performed at: ?? - [facility] ??[id number] Shelf Filler: Doyle Mendenhall PhD, Phone: ??[phone] Please contact Microbiology within 7 days if anaerobic susceptibilities are needed. Specimen (Source)Anatomical Location / LateralityCollection Method / Volume Collection TimeReceived TimeOtherSpecimen from uterine cervix / Unknown 03/02/2025 5:17 PM EDT1 5:38 PM EDTComment:Abscess Narrative [facility] - 03/13/2025 12:54 PM EDT Comment pilonidal abscess culture Authorizing ProviderResult TypeResult StatusTerence Pacheco MDLAB BLOOD ORDERABLESFinal ResultPerforming OrganizationAddressCity/State/ZIP CodePhone Number [facility] [address] [place] [address], [facility] [address] [place] [address] * AEROBIC CULTURE (03/02/2025 5:17 PM EDT)ComponentValueRef RangeTest Method Analysis TimePerformed AtPathologist SignatureFRMC ORGANISMSerratia marcescens 03/04/2025 9:13 AM [facility] CtrQUANTITY OF GROWTHLight Rbxbgk1903/04/2025 9:13 AM [facility] CtrSpecimen (Source) Anatomical Location / LateralityCollection Method / VolumeCollection Time Received TimeOtherSpecimen from uterine cervix / Tijrjuq4203/02/2025 5:17 PM EDT 03/02/2025 5:38 PM EDTComment:Abscess Narrative [facility] - 03/13/2025 12:54 PM EDT Comment pilonidal abscess culture Authorizing ProviderResult TypeResult MARGOT Celaya BLOOD ORDERABLESFinal ResultPerforming OrganizationAddressCity/State/[facility] CodePhone Number [facility] [address] [place] [address], [facility] [address] [place] [address] * (ABNORMAL) Gram stain (03/02/2025 5:17 PM EDT)ComponentValueRef RangeTest MethodAnalysis TimePerformed AtPathologist SignatureGRAM STAIN1+ Gram Positive Cocci(A)03/03/2025 2:17 PM [facility] CtrGRAM STAIN2+ White Blood Cells(A)03/03/2025 2:17 PM [facility] CtrSpecimen (Source)Anatomical Location / LateralityCollection Method / VolumeCollection TimeReceived TimeOtherSpecimen from uterine cervix / Lpadcak9803/02/2025 5:17 PM EDT1 5:38 PM EDTComment:Abscess Narrative [facility] - 03/13/2025 12:54 PM EDT Comment pilonidal abscess culture Authorizing ProviderResult TypeResult MARGOT Celaya MICROBIOLOGY - GENERAL ORDERABLESFinal ResultPerforming OrganizationAddressty/State/ZIP CodePhone Number [facility] [address] [place] [address], [facility] [address] [place] [address] * GENERAL PATHOLOGY (03/02/2025 11:32 AM EDT) Narrative Authorizing ProviderResult TypeResult GIUSEPPE CelayaLINISYNCFinal Result * Pap Smear (06/06/2024 12:00 AM EST)Specimen (Source)Anatomical Location / LateralityCollection Method / VolumeCollection TimeReceived TimeSwabCervical swab / Unknown Narrative Authorizing ProviderResult TypeResult StatusAmy Washington PALAB CYTOLOGY ORDERABLES Final ResultPerforming OrganizationAddressCity/State/ZIP CodePhone Number EXTERNAL LAB * MM TOMOSYNTHESIS DIAGNOSTIC BI (04/07/2024 8:40 AM EST)Anatomical Region LateralityModalityOtherSpecimen (Source)Anatomical Location / Laterality Collection Method / VolumeCollection TimeReceived Time04/07/2024 8:40 AM EST Narrative 04/07/2024 8:41 AM EST [facility] ?[address] ? [place] [address] ? Mammography Report ? Signed ? Patient: JONES PANIAGUA B ?MR#: [id number] ?? : 1980 ?Acct:[id number] ?? Age/Sex: 43 / F ?ADM Date: 04/06/24 ?? Loc: US ? Attending Dr: Luan Valdivia D.O. ? Ordering Physician: Luan Valdivia D.O. ?Results: ? Date of Service: 04/06/24 ?Follow Up: ? Procedure(s): MM tomosynthesis diagnostic BI ?? Accession Number(s): [id number] ? cc: GAY ENCISO ; Luan Valdivia D.O. ? Patient Name: ? JONES PANIAGUA ? MR#: [id number] ? : 1980 ? Exam Date: 04/06/2024 [...] ?? age 56. ? LOCATION: ? [facility] ? BREAST COMPOSITION: ? There are scattered [...] 0841 ? DD/ 0840 ? TD/TT: ? Pattern Generator Operator: Procedure Note Radiology, Radiologist, MD - 04/07/2024 [place] [address] Mammography Report Signed Patient: JONES PANIAGUA BMR#: [id number] : 1980Acct:[id number] Age/Sex: 43 / FADM Date: 04/06/24 Loc: US Attending Dr: Luan Valdivia D.O. Ordering Physician: Luan Valdivia D.O.Results: Date of Service: 04/06/24Follow Up: Procedure(s): MM tomosynthesis diagnostic BI Accession Number(s): [id number] cc: GAY ENCISO ; Luan Valdivia D.O. Patient Name: JONES PANIAGUA MR#: [id number] : 1980 Exam Date: 04/06/2024 Ordering Doctor: DR Luan Valdivia . RADIOLOGY REPORT PROCEDURE: MM TOMOSYNTHESIS DIAGNOSTIC BI, 04/06/2024, 15:20 US BREAST BI LIMITED, 04/06/2024, 15:37 COMPARISON: MM TOMOSYNTHESIS SCREENING BI, 09/23/2023. MG MAMM HROXFX7M MARK CAD, 09/01/2022. MG MAMM SCREEN 3D [...] stomach cancer at age 56. LOCATION: [facility] BREAST COMPOSITION: There are scattered areas of [...] By: Vito Yusuf M.D. Signed By:04/07/2441 DD/ 9 TD/TT: Pattern Generator Operator: Authorizing ProviderResult TypeResult StatusCorey Skip DOCLINISYNC IMAGINGFinal Result from Last 3 Months or Most Recently Relevant to Health Maintenance Insurance Care Teams Team MemberRelationshipSpecialtyStart DateEnd Manuel Klein MD [address] [place] [phone] PCP - GeneralFamily Oqpwchev79/17/25 Gay Enciso MD [address] [place] [phone] Referring PhysicianFamily Medicine07/18/24
--- OUTSIDE RECORDS SUMMARY | 2025-05-19 06:04 | XMS_ITS | Clinical Summary ---
Author Organization [facility] Address [address] [place] [id number] Care Team Providers Care Workers Compensation Coordinator Name Role Phone Manuel Klein MD Unavailable Manuel Klein MD Primary Care Provider [phone] Manuel Klein MD Unavailable [phone] Allergies Active AllergyReactionsCriticalityNoted DateCommentsSulfamethoxazoleOther: See Qwwbsphy43/08/2015 CAUSED ENLARGED LYMPH NODES UeyroctmcfkMhutiyrKql90/12/2022 Patient states it was a long time ago and she did not have a severe reaction. She does not believe she is allergic, she just thinks she just experienced side effects. CodeineOther: See Hpzbkgsu84/08/2015 Make her feel Jittery. OTHERWISE, NO SOB/WHEEZING, and NO DYSPHAGIA, NO URTICARIA, NO ANGIOEDEMA DoxycyclineOther: See LufdvanmJna10/29/2022 Patient states it was a long time ago and she did not have a severe reaction. She does not believe she is allergic, she just thinks she just experienced side effects. HuqugRfesEkd22/08/2015 Patient states it was a long time ago and she did not have a severe reaction. She does not believe she is allergic, she just thinks she just experienced side effects. OmeprazoleOther: See Yizphavw73/16/2024 Other Reaction(s): Other PantoprazoleOther: See Udrcmgag48/16/2024Sulfamethoxazole-TrimethoprimSwelling Low03/04/2022 Patient states it was a long time ago and she did not have a severe reaction. She does not believe she is allergic, she just thinks she just experienced side effects. TrimethoprimOther: See ShcvpqmyJgl06/29/2022 Patient states it was a long time [...] erythematosus with other organ involvement (HCC),Encounter for retirement current use of azathioprineTAKE 3 TABLETS BY MOUTH DAILY WITH FOOD. HOLD IF ON ANTIBIOTICS OR ILL. 270 tablet ctive folic acid 1 mg tablet Indications:Vitamin B12 deficiencyTake 1 tablet by mouth once daily. 90 tablet 4Active orczwnraspNGQKU-skdpfu-wbzydpukz (BMX 1:1:1) 1:1:1 liqd Take 5 mL [...] Once a day prn for 30 days F41.905Active Clindamycin Phosphate (CLEOCIN T) 1 % lotion APPLY A THIN LAYER TO AFFECTED AREAS ON THE THIGHS ONCE A DAY5Active HIBICLENS 4 % external liquid 11/29/2024tive tretinoin (RETIN-A) 0.025 % topical cream Apply to face, once daily at evening/night time, 30 day dkyhdr665Active hydrOXYchloroQUINE (PLAQUENIL) 200 mg tablet Indications:CHRISTIAN positive,Other [...] a week with food. 40 capsule 5Active Active Problems ProblemNoted DateDiagnosed DateGeneralized articular bttjtpudswabe89/17/2025Iron deficiency bwjvwi0906/16/20240545Qjqganvkskagiwmxxqrel34/09/2024Frequent infections 04/01/2024History of vitamin D oittvpwkjz86/14/2024hronic fatigue and malaise 06/10/2023ilateral wrist pain02/04/2023Raynaud's disease without gangrene 02/04/2023Steroid-induced mnyogwljnwws20/14/2023Long term current use of systemic bblrmsky01/14/2023Excessive and frequent menstruation with irregular cycleObesity, Class III, BMI >= 40009/07/2022Long-term use of high-risk jenkqqvjov05/23/2023NA jqtwijuz70/23/2023OSA (obstructive sleep apnea)05/20/2022omnolence, nzwxfrn7805/20/2022nemia, yrebaxdpppw82/19/2022 03/10/2023Megaloblastic anemia due to vitamin B12 yxrlndxtoo62/12/2022iscoid lupus prudahilbgcsz72/24/2749Phwaevvozxig58/03/2022ystemic lupus erythematosus 10/24/2021Vitamin D gblxmnbboy30/14/2021levated sed rate03/05/2021High total serum IgM03/05/2021econdary osteoarthritis of multiple sites03/05/2021ash and nonspecific skin eudwhrqv25/13/2021welling of lymph nodes03/05/2021hronic pain of toes of both feet03/05/2021ilateral leg gwrvqyjr51/13/2021Hair loss 03/05/2021Family history of Crohn's snmowfn7403/05/2021ong-term use of Plaquenil 03/05/2021ilateral auavasralhyu40/22/2016Vitamin B12 gtdiwfkpad66/08/2015 Wcyknxuznomcfa67/08/0730Ocqlsp54/08/2015Chronic bilateral low back pain with bilateral sywdwsgg59/08/2015Depression, recurrentChronic pain syndromePain, hip ObesityTobacco use disorder Resolved Problems ProblemNoted DateDiagnosed DateResolved DateObesity, Class II, BMI 35-39.9 Obesity (BMI 30-39.9) Encounters DateTypeDepartmentCare TpzoTabhevfttkd66/23/2025Orders Only Hematology/Oncology [address] [place] [address] Jose Cho MD 05/12/2025 9:00 AM [facility] Rheumatology [address] [facility] [place] [place] [address] Sandra Park MD Other systemic lupus erythematosus with other organ involvement (HCC) (Primary Dx); CHRISTIAN positive; Elevated sed rate; Vitamin D deficiency; Secondary osteoarthritis of multiple sites; Fibromyalgia; Vitamin B12 deficiency; Chronic bilateral low back pain with bilateral sciatica; Long-term use of high-risk medication; buttermaker current use of systemic steroids; Bilateral hand pain; Raynaud's disease without paddkfmy16/19/2025Orders Only Hematology/Oncology [address] [place] [address] Neda Hill PAJuliusC 05/10/2025Orders Only Hematology/Oncology [address] [place] [address] [place] [address] Fara Lopez APRN.STATE DIRECTOR Frequent infections (Primary Dx); Hypogammaglobulinemia (HCC); Bilateral leg weakness; Discoid lupus xgjhlqcrdsagy05/18/2025Orders Only Hematology/Oncology [address] [place] [address] [place] [address] Rebekah Rojas, MAURILIO.STATE DIRECTOR 05/03/2025 2:00 PM [facility]Inffirst[facility] H[facility]ology/Oncology [address] [place] [address] [place] [address] Other systemic lupus erythematosus with other organ involvement (HCC) (Primary Dx)05/01/2025 9:30 AM [facility] Hematology/Oncology [address] [place] [address] [place] [address] Frequent infections (Primary Dx); Hypogammaglobulinemia (HCC); Bilateral leg weakness; Discoid lupus erythematosus; Elevated sed rate; Megaloblastic anemia due to vitamin B12 niaytxnvba06/07/6771Wcaxuz29/23/2025 [place] [facility] [address] [facility] [place] [address] Sandra Park MD Rgeovud1204/11/2025 9:00 AM [facility] Hematology/Oncology [address] [place] [address] Frequent infections (Primary Dx); Elevated LFTs; Anemia of chronic disease; Elevated C-reactive protein (CRP); Elevated sed rate; Vitamin D deficiency; Hypogammaglobulinemia (HCC); Bilateral leg weakness; Discoid lupus erythematosus; Megaloblastic anemia due to vitamin B12 /18/2025bstract Neurology [address] [place] [address] [facility] Rejected CMN106/09/2024 11:00 AM [facility] [address] [place] [address] Christie Phan MD Type 2 diabetes mellitus with other specified complication, without long-term current use of insulin (HCC) (Primary Dx); Generalized articular hypermobility; Tachycardia; half-way (current) use of systemic steroids; Immunodeficiency (HCC); Class 3 severe obesity with serious comorbidity and body mass index (BMI) of 40.0 to 44.9 in adult,unspecified obesity type (HCC); History of Clostridioides difficile infection; Shortness of breath; Fatty (change of) liver, not elsewhere ttdiphprbp35/17/2025 Get Medical Advice Rheumatology [address] [place] [address] Sandra Park MD Jzowbeut52/17/2025Refill Rheumatology [address] [place] [address] Sandra Park MD Refill Luuoles7204/05/2025 2:00 PM [facility] Hematology/Oncology [address] [place] [address] Other systemic lupus erythematosus with other organ involvement (HCC) (Primary Dx)04/05/2025 Patient Msg Rheumatology [address] [place] [address] Sandra Park MD Appointment Wqmomwc3604/04/2025Orders Only Hematology/Oncology [address] [place] [address] Jose Cho MD Frequent infections (Primary Dx); Hypogammaglobulinemia (HCC); Bilateral leg weakness; Discoid lupus uhmmsbrmsqddf01/12/2025Orders Only Hematology/Oncology [address] [place] [address] [place] [address] Rebekah Rojas APRN.STATE DIRECTOR 04/04/2025Orders Only Hematology/Oncology [address] [place] [address] [place] [address] Fara Lopez APRN.TRUE Frequent infections (Primary Dx); Hypogammaglobulinemia (HCC); Bilateral leg weakness; Discoid lupus efrzuijmiarko07/04/2025 Patient Msg Integrated Medicine [address] [place] [address] Christie Phan MD Appointment Tjkqgxy0203/27/2025 Patient Msg Rheumatology [address] [facility] [place] [address] Sandra Park MD Appointment Lginncb4803/21/2025 9:40 AM [facility] Hematology/Oncology [address] [place] [address] [place] [address] Gabbi, Chair 4 Frequent infections (Primary Dx); Hypogammaglobulinemia (HCC); Bilateral leg weakness; Discoid lupus erythematosus; Elevated sed rate; Megaloblastic anemia due to vitamin B12 dmcqclohdk24/29/2025 9:20 AM EDTVisit (SP) Office Hematology/Oncology [address] [place] [address] [place] [address] Jose Cho MD Hypogammaglobulinemia (HCC) (Primary Dx); Frequent infections; Megaloblastic anemia due to vitamin B12 deficiency; Elevated sed rate; Bilateral leg weakness; Discoid lupus erythematosus; Infection of left breast; Immunodeficiency (HCC); Type 2 diabetes mellitus without complication, without long-term current use of insulin (HCC)03/21/20255160Roopre58/28/2025Telephone Hematology/Oncology [address] [place] [address] [place] [address] Jose Cho MD Lab Sqsbvk5803/19/20255471Cwzheo58/01/2025 9:30 AM [facility] Hematology/Oncology [address] [place] [address] [place] [address] Frequent infections (Primary Dx); Hypogammaglobulinemia (HCC); Bilateral leg weakness; Discoid lupus pmnywwhqpzkid56/01/2025 9:00 AM EDTVisit (SP) Office Hematology/Oncology [address] [place] [address] [place] [address] Fara Lopez APRN.STATE DIRECTOR Frequent infections (Primary Dx); Hypogammaglobulinemia (HCC); Bilateral leg weakness; Discoid lupus erythematosus; Vitamin B12 deficiency; Shortness of breath; Other iron deficiency anemia; Malaise and eeasapn4602/21/2025 Get Medical Advice Hematology/Oncology [address] [place] [address] [place] [address] Provider, Ccf Blood work02/21/2025Telephone Cancer Appts [address] [place] [address] Fara Lopez APRN.STATE DIRECTOR Resultsfrom Last 3 Months Immunizations ImmunizationAdministration DatesNext DueCOVID-19 vaccine, age 12+ yr ([employer] COMIRNATY)02/23/2023 Family History Medical HistoryRelationCommentsCancerFatherstomachCrohn's [Other]MotherRelation StatusCommentsDaughter 1AliveDaughter 2AliveFatherDeceased (Age 57)stomach cancerMotherAlive (Age 55)crohn's diseaseSisterAliveSonAlive Social History Tobacco UseTypesPacks/DayYears UsedDateSmoking Tobacco: Every RcvHobfzwfnht504 Smokeless Tobacco: Never Tobacco Cessation:Ready to Q uit: Not Asked; Counseling Given: Not Answered Alcohol UseStandard Drinks/WeekCommentsNo0 (1 standard drink = 0.6 oz pure alcohol)PHQ-2AnswerDate RecordedPHQ-2 jxysi4684Area Deprivation Index AnswerDate RecordedNational Score (1-100), lower number is lower risk59 09/24/2022State Score (1-10), lower number is lower qbfo2663Data from: https://www.neighborhoodatlas.medicine.[facility].edu/. Last address used [address]CommentsNoSex and Gender InformationValueDate RecordedSex Assigned at BirthNot on fileLegal SexFemale 05/31/2014 2:51 PM ESTGender IdentityNot on fileSexual OrientationNot on file Last Filed Vital Signs Vital SignReadingTime TakenCommentsBlood Luuyqtti244/8305/03/2025 2:05 PM EST Fwmzh9269/11/2025 2:05 PM BOLUicacytklxj85.5 ??C (97.7 ??F)05/03/2025 2:05 PM ESTRespiratory Zusj002107/04/2024 2:05 PM ESTOxygen Cxddbemlez52%05/03/2025 2:05 PM ESTInhaled Oxygen Concentration--Wkoccz648.7 kg (286 lb)04/09/2025 10:04 AM BKBGkbjdo987.2 cm (5' 7 )04/09/2025 10:04 AM ESTBody Mass Index44.7904/09/2025 10:04 AM EST Plan of Treatment DateTypeDepartmentCare Team (Latest Contact Info)Pelbolyualn04/31/2025 9:00 AM ESTInfusion Center Hematology/Oncology [address] [facility] [place] [address] IVIG Q 3 WEEKS05/31/2025 2:00 PM ESTInfusion Center Hematology/Oncology [address] [place] [address] BENLYSTA -06/13/2025 8:45 AM ESTOffice Visit [facility] [address] [facility] [place] [address] 12 week follow up IVIG06/13/2025 9:00 AM ESTVisit (SP) Office Hematology/Oncology [address] [facility] [place] [address] Fara Lopez, WINDOW INSTALLATION SUBCONTRACTOR.STATE DIRECTOR [address] [place] [address] 12 week follow up IVIG06/13/2025 9:30 AM ESTInfusion Center Hematology/Oncology [address] [place] [address] 12 week follow up IVIG06/28/2025 2:00 PM ESTInfusion Center Hematology/Oncology [address] [place] [address] BENLYS -07/26/2025 2:00 PM [facility]On[facility] [address] [place] [address] [place] [address] BENLYSTA -Health MaintenanceDue DateLast DoneCommentsCervical Cancer Screening 10/05/1991Anxiety Rfcitvvph10/14/1999HIV Emuaqlhfv89/14/1999DTaP,Tdap,Td Vaccine (1 - Tdap)10/05/1999Pneumococcal Vaccine (1 of 2 - PCV)10/05/1999Shingrix Vaccine (1 of 2)10/05/1999HPV Vaccine (1 - Risk 3-dose SCDM series)10/05/2007 Mammogram Uohrxbdca93/14/2021Covid-19 Vaccine ( - season)2025 02/23/2023, 02/08/2022, 05/26/2021, Additional history existsInfluenza Vaccine (#1)01/22/2025Hepatitis C WwxmomcxtUipuzhsyk94/21/2025, 03/05/2021 Procedures Procedure NamePriorityDate/TimeAssociated DiagnosisCommentsVITAMIN D 25 HYDROXY Qgxxyue2904/11/2025 9:28 AM EST Vitamin D deficiency C-REACTIVE PROTEIN (CRP)Qjjrajh8304/11/2025 9:28 AM EST Elevated C-reactive protein (CRP) Elevated sed rate COMPLETE BLOOD FZJURMxmbfcx99/19/2025 9:28 AM EST Anemia of chronic disease COMPREHENSIVE METABOLIC CKUHNScvqzij22/19/2025 9:28 AM EST Elevated LFTs IMMUNOGLOBULINS JLVQdzpxvl30/29/2025 10:51 AM EDT Vitamin B12 deficiency Hypogammaglobulinemia (HCC) COMPREHENSIVE METABOLIC DTYBPJxujlrj91/29/2025 9:16 AM EDT Vitamin B12 deficiency Hypogammaglobulinemia (HCC) CBC + HVVJVqptuit55/29/2025 9:16 AM EDT Vitamin B12 deficiency Hypogammaglobulinemia (HCC) IMMUNOGLOBULINS FQGKwnlqgw47/01/2025 8:51 AM EDT Hypogammaglobulinemia (HCC) Vitamin B12 deficiency Other iron deficiency anemia FOLATE TSYVEPzlvrxh98/01/2025 8:51 AM EDT Hypogammaglobulinemia (HCC) Vitamin B12 deficiency Other iron deficiency anemia VITAMIN B12 GXUEAVvimyvi72/01/2025 8:51 AM EDT Hypogammaglobulinemia (HCC) Vitamin B12 deficiency Other iron deficiency anemia FERRITIN XEPDatorfw34/01/2025 8:51 AM EDT Hypogammaglobulinemia (HCC) Vitamin B12 deficiency Other iron deficiency anemia IRON + CEOVKyszird82/01/2025 8:51 AM EDT Hypogammaglobulinemia (HCC) Vitamin B12 deficiency Other iron deficiency anemia COMPREHENSIVE METABOLIC CDVWCQgmkoof91/01/2025 8:51 AM EDT Hypogammaglobulinemia (HCC) Vitamin B12 deficiency Other iron deficiency anemia CBC + BEAFKtkdzos65/01/2025 8:51 AM EDT Hypogammaglobulinemia (HCC) Vitamin B12 deficiency Other iron deficiency anemia HEPATITIS C ANTIBODY IA WITH JVGKGWPJRLPCRexysjd12/21/2025 1:48 PM EDT Elevated LFTs from Last 3 Months or Most Recently Relevant to Health Maintenance Results * (ABNORMAL) VITAMIN D 25 HYDROXY (04/11/2025 9:28 AM EST)ComponentValueRef RangeTest MethodAnalysis TimePerformed AtPathologist SignatureVitamin D 25 Zddmcyj57.0(L)31.0 - 80.0 ng/mL04/12/2025 10:40 AM ESTCLEREGENCY HOS[facility] MAIN LABSpecimen (Source)Anatomical Location / LateralityCollection Method / Volume Collection TimeReceived TimeBloodBLOOD SPECIMEN / UnknownVenipuncture / Wevcmqs4204/11/2025 9:28 AM EST04/11/2025 9:29 AM EST Narrative Authorizing ProviderResult TypeResult StatusSandra Park MDLABORATORYFinal ResultPerforming OrganizationAddressCity/State/ZIP CodePhone Number [facility] [address] [place] [address], * (ABNORMAL) COMPREHENSIVE METABOLIC PANEL (04/11/2025 9:28 AM EST) Only the most recent of3 resultswithin the time period is included. ComponentValueRef RangeTest MethodAnalysis TimePerformed AtPathologist Signature Protein, Total6.86.3 - 8.0 g/dL04/11/2025 9:56 AM ESTNOR[facility]COAASCENSION [facility] LABAlbumin3.93.9 - 4.9 g/dL04/11/2025 9:56 AM ESTNORTMCLAREN C[facility] LABCalcium, Total9.38.5 - 10.2 mg/dL04/11/2025 9:56 AM EST [facility] LABBilirubin, Total0.20.2 - 1.3 mg/dL 04/11/2025 9:56 AM ESTRTMCLAREN C[facility]TRAL [place] LABAlkaline Phosphatase 7734 - 123 U/L106/11/2024 9:56 AM ESTNORTMCLAREN C[facility] LDAOJA0801 - 35 U/L106/11/2024 9:56 AM ESTRTMCLAREN C[facility] [place] LXFYWQ975 - 38 U/L106/11/2024 9:56 AM [facility] HTAZkzgzck173(H)74 - 99 mg/dL04/11/2025 9:56 AM [facility] LABComment: The [place] Diabetes Association (ADA) provides guidance for cutoff [...] Standards of Medical Care in Diabetes 2016, [place] [employer] Association. Diabetes Care. 2016.39(Suppl 1). GJV131 - 21 mg/dL04/11/2025 9:56 AM [facility] Creatinine0.52(L)0.58 - 0.96 mg/dL04/11/2025 9:56 AM [facility] ENMQppnxb734590 - 144 mmol/L106/11/2024 9:56 AM [facility] LABPotassium4.23.7 - 5.1 mmol/L106/11/2024 9:56 AM EST [facility] ICUPvdugacp38352 - 107 mmol/L106/11/2024 9:56 AM [facility] YQZEA724(L)22 - 30 mmol/L106/11/2024 9:56 AM [facility] LABAnion Fcj190 - 15 mmol/L106/11/2024 9:56 AM [facility] LABEstimated Glomerular Filtration Xlxl442>=60 mL/min/1.73m 04/11/2025 9:56 AM [facility] LABComment:Estimated Glomerular Filtration Rate (eGFR) is calculated [...] VolumeCollection TimeReceived TimeBloodBLOOD SPECIMEN / UnknownVenipuncture / Pimbvmg7504/11/2025 9:28 AM EST04/11/2025 9:29 AM EST Narrative Authorizing ProviderResult TypeResult StatusMarjose a Park MDLABORATORYFinal ResultPerforming OrganizationAddressCity/State/ZIP CodePhone Number [facility] [address] [place] [address] * (ABNORMAL) COMPLETE BLOOD COUNT (04/11/2025 9:28 AM EST)ComponentValueRef RangeTest MethodAnalysis TimePerformed AtPathologist QsulrdkvsOIC83.89(H)3.70 - 11.00 k/uL04/11/2025 9:40 AM [facility] LABRBC4.41 3.90 - 5.20 m/uL04/11/2025 9:40 AM [facility] LAB Bzosdmwvbs25.711.5 - 15.5 g/dL04/11/2025 9:40 AM [facility] IWMIkvejgntqk18.536.0 - 46.0 %04/11/2025 9:40 AM [facility] YYLFEW40.180.0 - 100.0 MS04/11/2025 9:40 AM EST [facility] XZDKGZ81.126.0 - 34.0 pg04/11/2025 9:40 AM [facility] XQVGNEX43.030.5 - 36.0 g/dL04/11/2025 9:40 AM [facility] LABRDW-CV14.411.5 - 15.0 % 04/11/2025 9:40 AM [facility] LABPlatelet Xnfzx253 150 - 400 k/uL04/11/2025 9:40 AM [facility] LABMPV 11.59.0 - 12.7 MS04/11/2025 9:40 AM [facility] LAB Absolute nRBC<0.01<0.01 k/uL04/11/2025 9:40 AM [facility] LABSpecimen (Source)Anatomical Location / LateralityCollection Method / VolumeCollection TimeReceived TimeBloodBLOOD SPECIMEN / UnknownVenipuncture / Rnlzine4804/11/2025 9:28 AM EST04/11/2025 9:29 AM EST Narrative Authorizing ProviderResult TypeResult StatusMargaret Xavier MDLABORATORYFinal ResultPerforming OrganizationAddressCity/State/ZIP CodePhone Number [facility] [address] [place] [address] * C-REACTIVE PROTEIN (04/11/2025 9:28 AM EST)ComponentValueRef RangeTest Method Analysis TimePerformed AtPathologist SignatureCRP0.4<0.9 mg/dL04/11/2025 7:03 PM ESTOH[facility]HE[facility]IN LABSpecimen (Source)Anatomical Location / LateralityCollection Method / VolumeCollection TimeReceived TimeBloodBLOOD SPECIMEN / UnknownVenipuncture / Zvznmjk9104/11/2025 9:28 AM EST04/11/2025 9:29 AM EST Narrative Authorizing ProviderResult TypeResult StatusSandra Park MDLABORATORYFinal ResultPerforming OrganizationAddressCity/State/ZIP CodePhone Number [facility] [address] [place] [address], [place] * (ABNORMAL) IMMUNOGLOBULINS,IGG,IGA,IGM (03/21/2025 10:51 AM EDT) Only the most recent of2 resultswithin the time period is included. ComponentValueRef RangeTest MethodAnalysis TimePerformed AtPathologist Signature QcZ336(L)700 - 1,600 mg/dL03/21/2025 7:55 PM EDTCLEVELAND [facility]IN XQOBrK519 70 - 400 mg/dL03/21/2025 7:55 PM EDTCMADISON [facility]ALTH [facility]IN RXIQtP646(H)40 - 230 mg/dL03/21/2025 7:55 PM EDTCMADISON HEALTH MAIN LABSpecimen (Source)Anatomical Location / LateralityCollection Method / VolumeCollection TimeReceived TimeBlood BLOOD SPECIMEN / UnknownVenipuncture / Gboxgqf8903/21/2025 10:51 AM EDT1 10:51 AM EDT Narrative Authorizing ProviderResult TypeResult StatusRebekah Rojas APRNKimberlyCNPLABORATORY Final ResultPerforming OrganizationAddressCity/State/ZIP CodePhone Number [facility] [address] [place] [address], [place] * (ABNORMAL) COMPLETE BLOOD COUNT AND DIFFERENTIAL (03/21/2025 9:16 AM EDT) Only the most recent of2 resultswithin the time period is included. ComponentValueRef RangeTest MethodAnalysis TimePerformed AtPathologist Signature WBC13.02(H)3.70 - 11.00 k/uL03/21/2025 9:20 AM EDTNORTMCLAREN C[facility] LABRBC4.683.90 - 5.20 m/uL03/21/2025 9:20 AM EDTNORTMCL[facility] ZNLSjzkyqqlqj67.911.5 - 15.5 g/dL03/21/2025 9:20 AM EDTNORTMCL[facility]EN [facility] GRUIzgzirlsmu96.436.0 - 46.0 %03/21/2025 9:20 AM EDT [facility] RKPUIH10.980.0 - 100.0 fL03/21/2025 9:20 AM [facility]TJE[facility] JQUFDR11.826.0 - 34.0 pg03/21/2025 9:20 AM EDTNOWEBSTER [facility] ZSWQWST36.630.5 - 36.0 g/dL03/21/2025 9:20 AM EDTNOWEBSTER COUNTY MEMORIAL [facility] LABRDW-CV14.111.5 - 15.0 %03/21/2025 9:20 AM EDTJEFF[facility] LABPlatelet Dfgzq706714 - 400 k/uL 03/21/2025 9:20 AM EDTJE[facility] HMGVXE84.39.0 - 12.7 fL 03/21/2025 9:20 AM EDTNORTMCLAREN [facility] LABNeutrophils %74.8% 03/21/2025 9:20 AM EDTJEFF[facility] LABAbs Neut9.74(H)1.45 - 7.50 k/uL03/21/2025 9:20 AM EDTNOWEBSTER COUNTY [facility]ORIAL [facility] LABLymphocytes %14.9%03/21/2025 9:20 AM EDTJEFF[facility] LABAbs Lymph1.94 1.00 - 4.00 k/uL03/21/2025 9:20 [facility] Monocytes %7.2%03/21/2025 9:20 AM [facility] LABAbs Mono0.94(H)<0.87 k/uL03/21/2025 9:20 AM [facility] Eosinophils %1.1%03/21/2025 9:20 AM [facility] LABAbs Eosin0.14<0.46 k/uL03/21/2025 9:20 AM [facility] Basophils %0.8%03/21/2025 9:20 AM [facility] LABAbs Baso0.10<0.11 k/uL03/21/2025 9:20 AM [facility] Immature Granulocytes %1.2%03/21/2025 9:20 AM [facility] LABAbs Immature Gran0.16(H)<0.10 k/uL03/21/2025 9:20 AM [facility] LABNRBC0.0/100 WBC03/21/2025 9:20 AM [facility] LABAbsolute nRBC<0.01<0.01 k/uL03/21/2025 9:20 AM EDT [facility] LABDiff AjokKnvx69/29/2025 9:20 AM EDT [facility] LABSpecimen (Source)Anatomical Location / LateralityCollection Method / VolumeCollection TimeReceived TimeBloodBLOOD SPECIMEN / UnknownVenipuncture / Dqqjcls9703/21/2025 9:16 AM EDT1 9:16 AM EDT Narrative Authorizing ProviderResult TypeResult StatusHolly Bob SIMSNKimberlyCNPLABORATORY Final ResultPerforming OrganizationAddressCity/State/ZIP CodePhone Number [facility] [address] [place] [phone] * VITAMIN B12 (02/21/2025 8:51 AM EDT)ComponentValueRef RangeTest MethodAnalysis TimePerformed AtPathologist SignatureVitamin [id number] - 1,245 pg/mL 02/21/2025 10:05 PM [facility] LABSpecimen (Source) Anatomical Location / LateralityCollection Method / VolumeCollection Time Received TimeBloodBLOOD SPECIMEN / UnknownVenipuncture / Iczilmw9502/21/2025 8:51 AM EDT1 8:51 AM EDT Narrative Authorizing ProviderResult TypeResult StatusJaimee John WINDOW INSTALLATION SUBCONTRACTOR.CNPLABORATORYFinal ResultPerforming OrganizationAddressCity/State/ZIP CodePhone Number [facility] [address] [phone], [place] * (ABNORMAL) IRON AND TIBC (02/21/2025 8:51 AM EDT)ComponentValueRef RangeTest MethodAnalysis TimePerformed AtPathologist VyelwqvxjBnky53422 - 186 ug/dL 02/21/2025 9:46 PM [facility] FPDMDIU460(H)232 - 386 ug/dL02/21/2025 9:46 PM [facility] LABTransferrin Kqustwkwnb14.215.0 - 57.0 %02/21/2025 9:46 PM [facility] LABSpecimen (Source)Anatomical Location / LateralityCollection Method / Volume Collection TimeReceived TimeBloodBLOOD SPECIMEN / UnknownVenipuncture / Hzakwbj2102/21/2025 8:51 AM EDT1 8:51 AM EDT Narrative Authorizing ProviderResult TypeResult StatusJaimee John WINDOW INSTALLATION SUBCONTRACTOR.CNPLABORATORYFinal ResultPerforming OrganizationAddressCity/State/ZIP CodePhone Number [facility] [address] [phone], [place] * FOLATE, SERUM (02/21/2025 8:51 AM EDT)ComponentValueRef RangeTest Method Analysis TimePerformed AtPathologist SignatureFolate>20.0>4.7 ng/mL02/21/2025 10:05 PM [facility] LABComment: A result of > 20 ng/mL is not necessarily indicative of a pathologic or treatable condition: it reflects a limitation of the test methodology. Assay reference range: 4.8 to 24.2 ng/mL. Suitable for detection of folate deficiency. Reference: Folate III (Folate III) [package insert V 1.0 Setswana]. [facility], [place], [place]: March 2015. 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.CNPLABORATORYFinal ResultPerforming OrganizationAddressCity/State/ZIP CodePhone Number [facility] [phone], * FERRITIN (02/21/2025 8:51 AM EDT)ComponentValueRef RangeTest MethodAnalysis TimePerformed AtPathologist UpkhrqealAwxeqzzd71.614.7 - 205.1 ng/mL02/21/2025 10:05 PM [facility] LABSpecimen (Source)Anatomical Location / LateralityCollection Method / VolumeCollection TimeReceived Time BloodBLOOD SPECIMEN / UnknownVenipuncture / Dviswem4402/21/2025 8:51 AM EDT 02/21/2025 8:51 AM EDT Narrative Authorizing ProviderResult TypeResult StatusJaimedane Lopez WINDOW INSTALLATION SUBCONTRACTOR.CNPLABORATORYFinal ResultPerforming OrganizationAddressCity/State/ZIP CodePhone Number [facility] [address] [phone], [place] * HEPATITIS C ANTIBODY IA WITH CONFIRMATION (01/11/2025 1:48 PM EDT)Component ValueRef RangeTest MethodAnalysis TimePerformed AtPathologist SignatureHep C Antibody PMDabfqrjwFnyxrhbx68/22/2025 11:34 AM [facility] LABComment:The result suggests no evidence of infection with Hepatitis C virus. Should recent infection be suspected, repeat testing may be considered 4-6 weeks after this draw.Specimen (Source)Anatomical Location / Laterality Collection Method / VolumeCollection TimeReceived TimeBloodBLOOD SPECIMEN / UnknownVenipuncture / Rrsbytg0601/11/2025 1:48 PM EDT01/11/2025 2:06 PM EDT Narrative Authorizing ProviderResult TypeResult StatusSandra Park MDLABORATORYFinal ResultPerforming OrganizationAddressCity/State/ZIP CodePhone Number [facility] [address] [facility] [address] [place] [phone], from Last 3 Months or Most Recently Relevant to Health Maintenance Insurance Care Teams Team MemberRelationshipSpecialtyStart DateEnd Manuel Klein MD PCP - GeneralFamily Ltnwnlkn04/7/22 Manuel Klein MD ReferringFamily Medicine02/12/22 [place] [address] [place] [address] ReferringFamily Medicine07/06/24
--- OUTSIDE RECORDS SUMMARY | 2025-05-19 06:04 | XMS_ITS | Clinical Summary ---
Author Organization [facility] Address [address] [facility], [address] [place] [address] Care Team Providers Care Orthopedics Teacher Name Role Phone Gay De La Torre APRN - COMPOSITION WEATHERBOARD APPLIER Primary Care Provide r Allergies Active AllergyReactionsCriticalityNoted DateComments Sulfamethoxazole-Ncjgifldqzst40/17/2021 Medications MedicationSigDispense QuantityRefillsLast FilledStart DateEnd DateStatus famotidine [...] times daily07/29/2020ctive Active Problems ProblemNoted DateDiagnosed DateRheumatoid kgwmbqsta11/05/2022 Social History Tobacco UseTypesPacks/DayYears UsedDateSmoking Tobacco: Every DaySmokeless Tobacco: NeverAlcohol UseStandard Drinks/WeekCommentsNever0 (1 standard drink = 0.6 oz pure alcohol)CommentsUnknownSex and Gender InformationValueDate RecordedSex Assigned at BirthNot on fileLegal GgvUhlofo49/11/2013 11:20 PM EST Gender IdentityNot on fileSexual OrientationNot on file Last Filed Vital Signs Vital SignReadingTime TakenCommentsBlood Ixkedrwe184/6501 2:38 PM EST Uzocu762006/03/2021 2:38 PM SLRZqtysdyhajg80 ??C (98.6 ??F)06/03/2021 2:38 PM EST Respiratory Ulpt695110/07/2020 10:45 AM EDTOxygen Dgfiarxwrg71%10/07/2020 12:45 PM EDTInhaled Oxygen Concentration--Mupofc136 kg (231 lb 7.2 oz)06/03/2021 2:38 PM NFIEogxio086.2 cm (5' 7 )10/07/2020 9:01 AM EDTBody Mass Index36.25010/07/2020 9:01 AM EDT Plan of Treatment Not on file Insurance Advance Directives * Full Code (Latest Code Status on File) Date ActivatedDate InactivatedComments10/07/2020 8:32 AM10/08/2020 2:43 AM Care Teams Team MemberRelationshipSpecialtyStart DateEnd Date Gay De La Torre, CORD SPLICER - COMPOSITION WEATHERBOARD APPLIER [address] [place] [phone] [facility] - General06/03/21
--- OUTSIDE RECORDS SUMMARY | 2025-05-19 06:04 | XMS_ITS | Patient Health Record ---
Author Organization [facility] in [place] Address [address] [place] [address] Care Team Providers Care Electric Clock Mechanic Name Role Phone Britt Gay Primary Care Provider Víctor Klein [phone] Allergies Allergen (clinical drug ingredient) Drug/Non Drug Allergy documented on EMR Reaction Allergy Type Onset Date Status sulfamethoxazole / trimethoprim Bactrim GI upset Drug Allergy ActivecodeineCodeinejitteryDrug AllergyActiveLatexLatexrashAllergyActive Substance with sulfonamide structure and antibacterial mechanism of action (substance)Sulfa AntibioticsswellingDrug AllergyActiveclindamycinClindamycin unknownDrug AllergyActivetrimethoprimTrimethoprimunknownDrug AllergyActive Results Component Value Reference Range Notes CBC AUTO DIFF Reviewed date:02/27/2025 04:34:12 PM Interpretation: Performing Lab: Notes/Report: [facility] , White Blood Count 10.2 4.0-11.0 10 3/uL Red Blood Count4.094.20-5.40 10 6/mIOixzsoafls53.112.0-16.0 g/gUWwwjeiqexr26.5 36.0-48.0 %Mean Corpuscular Edjfki59.681.0-99.0 fLMean Corpuscular Hemoglobin 32.026.7-34.0 pgMean Corpuscular HGB Conc33.229.9-35.2 g/dLRed Cell Distribution Width14.011.0-15.0 %Platelet Jdfhu833626-441 10 3/uLMean Platelet Jkvbyx83.79.5- 13.5 fLNeutrophils Percent Auto74.443.0-75.0 %Lymphocytes Percent Auto17.220.5- 60.0 %Monocytes Percent Auto5.71.7-12.0 %Eosinophils Percent Auto0.70.9-7.0 % Basophils Percent Auto0.60.2-2.0 %Immature Granulocytes Pct Auto1.40.0-0.5 % Neutrophils Absolute Auto7.61.4-6.5 10 3/uLLymphocytes Absolute Auto1.81.2-3.8 10 3/uLMonocytes Absolute Auto0.60.3-0.8 10 3/uLEosinophils Absolute Auto0.10.0- 0.7 10 3/uLBasophils Absolute Auto0.10.0-0.1 10 3/uLImmature Granulocytes Abs Auto0.140.00-0.03 10 3/uLPerforming Lab:see noteML - [facility] LB LACTATE or LACTIC ACID Reviewed date:02/27/2025 08:35:01 AM Interpretation: Performing Lab: Notes/Report: [facility] ,Lactate/Lactic Acid3.20.4-2.0 mmol/LRESULTS CALLED TO MONICA MORA LPN at 1655 Performing Lab:see noteML - [facility] LBCBC AUTO DIFF Reviewed date:08/08/2024 08:30:17 AM Interpretation: Performing Lab: Notes/Report: [facility] ,White Blood Count12.04.0-11.0 10 3/uLRed Blood Count4.274.20-5.40 10 6/uL Ncahjsbrqy43.712.0-16.0 g/wAXzobpsjyxq49.836.0-48.0 %Mean Corpuscular Iohfhc95.2 81.0-99.0 fLMean Corpuscular Jvfdoofntw93.726.7-34.0 pgMean Corpuscular HGB Conc 31.929.9-35.2 g/dLRed Cell Distribution Width15.711.0-15.0 %Platelet Klhkx351 150-450 10 3/uLMean Platelet Iuqnjw74.59.5-13.5 fLNeutrophils Percent Auto65.1 43.0-75.0 %Lymphocytes Percent Auto25.920.5-60.0 %Monocytes Percent Auto6.41.7- 12.0 %Eosinophils Percent Auto1.00.9-7.0 %Basophils Percent Auto0.40.2-2.0 % Immature Granulocytes Pct Auto1.20.0-0.5 %Neutrophils Absolute Auto7.81.4-6.5 10 3/uLLymphocytes Absolute Auto3.11.2-3.8 10 3/uLMonocytes Absolute Auto0.80.3-0.8 10 3/uLEosinophils Absolute Auto0.10.0-0.7 10 3/uLBasophils Absolute Auto0.10.0- 0.1 10 3/uLImmature Granulocytes Abs Auto0.140.00-0.03 10 3/uLPerforming Lab:see noteML - [facility] LBUS breast LT limited Reviewed date:07/14/2024 03:37:19 PM Interpretation: Performing Lab: Notes/Report: Source Facility: [place] [address] Ultrasound Report Signed Patient: JONES PANIAGUA MR#: [id number] : 1980 Acct:[id number] Age/Sex: 43 / F ADM Date: 06/14/24 Loc: MAMMO Attending Dr: Oly Plascencia Ordering Physician: Oly Plascencia Date of Service: 06/14/24 Procedure(s): US breast LT limited Accession Number(s): [id number] cc: GAY Mcpherson Patient Name: JONES PANIAGUA MR#: [id number] : 1980 Exam Date: 06/14/2024 Ordering Doctor: [...] Signed By: 06/14/24 1505 DD/ 1504 TD/TT: Wire Spiral Binder:MM tomosynthesis diagnostic BI Reviewed date:07/14/2024 03:37:52 PM Interpretation: Performing Lab: Notes/Report: Source Facility: [place] [address] Mammography Report Signed Patient: JONES PANIAGUA MR#: [id number] : 1980 Acct:[id number] Age/Sex: 43 / F ADM Date: 06/14/24 Loc: MAMMO Attending Dr: Oly Plascencia Ordering Physician: Oly Plascencia Results: Date of Service: 06/14/24 Follow Up: Procedure(s): MM tomosynthesis diagnostic LT Accession Number(s): [id number] cc: Oly Plascencia; GAY ENCISO Patient Name: JONES PANIAGUA MR#: [id number] : 1980 Exam Date: 06/14/2024 Ordering Doctor: [...] stomach cancer at age 56. LOCATION: [facility] BREAST COMPOSITION: There are scattered areas [...] M.D. Signed By: 06/14/24 1615 DD/ TD/TT: Wire Spiral Binder:Serina RAE,Age Gdln Reviewed date:06/12/2024 03:56:26 PM Interpretation: Performing Lab: Notes/Report: BRUSH-SPATULA CERVIX ENDOCERVIX [facility] ,Age Gdln ACOG TestingNote. TESTS RESULT FLAG UNITS REF RANGE LAB Clinician Provided Cytology Information Source.............Cervix;Endocervix No. of containers..01 ThinPrep Vial Pranav SCHAFER Vicky... 30 FLAG LEGEND: L-Low Normal,H-High Normal,LL-Alert Low,HH-Alert High <-Panic Low,>-Panic High,A-Abnormal,AA-Critical Abnormal Performed at: 01 =G [facility] [place] [address] [place] [address] Aparna Solorzano MD, IGP, Aptima HPV, rfx 16/18,45Note. TESTS RESULT FLAG UNITS REF RANGE LAB DIAGNOSIS: 02 NEGATIVE FOR INTRAEPITHELIAL LESION OR MALIGNANCY. Specimen adequacy: 02 Satisfactory for evaluation. Endocervical and/or squamous metaplastic cells (endocervical component) are present. Performed by: David Kam, Pail Tester (ASC) . 02 Note: Note 02 The [...] <-Panic Low,>-Panic High,A-Abnormal,AA-Critical Abnormal Performed at: [address] [address] Aparna Solorzano MD, HPV AptimaNegativeNegative This nucleic acid amplification test detects fourteen high- risk HPV types (16,18,31,33,35,39,45,51,52,56,58,59,66,68) without differentiation. Performed at: =[address] [id number] Physician'S Aide: Aparna Solorzano MD, Phone: [phone] Performed at: [address] [id number] Physician'S Aide: Aparna Solorzano MD, Phone: [phone] Performing Lab:see note - [facility] LBE coli Shiga Toxin EIA Reviewed date:10/26/2024 03:06:58 PM Interpretation: Performing Lab: Notes/Report: [facility] ,E coli Shiga Toxin EIASee Below For Report E coli Shiga Toxin EIA E coli Shiga Toxin EIANegative E coli Shiga Toxin EIA E coli Shiga Toxin EIAPerformed at: [facility] E coli Shiga Toxin EIA E coli Shiga Toxin [id number] [place], [place] [id number] E coli Shiga Toxin EIA E coli Shiga Toxin EIALab Director: Doyle Mendenhall PhD, Phone: [phone] E coli Shiga Toxin EIA Performing Lab:see note - [facility] LB SEE REPORT - Superintendent Plant Protection Id information not found for OBX-specific newscast producer legend PROF 14(COMP METB) Reviewed date:02/26/2025 09:22:15 AM Interpretation: Performing Lab: Notes/Report: [facility] ,Dwkiqr974706-954 mmol/LPotassium3.83.5-5.1 mmol/RAjyvnzfa85182-078 mmol/LCarbon Opxebvc44.721.0-32.0 mmol/LAnion Gap16.3Ixuabqt63961-553 mg/dLBlood Urea Sfhbuhme17.07.0-18.0 mg/dLCreatinine0.710.55-1.02 mg/dLEstimated GFR ( Cindi>60>=60 mL/min/1.73m 2Estimated GFR (Non- Coretta>60>=60 mL/min/1.73m 2BUN Creatinine Ratio21.1Criapar9.88.5-10.1 mg/dLBilirubin Total0.30.2-1.0 mg/dL Aspartate Amino Glcavyaycys5820-38 U/LAlanine Tyblgyhptcxiuntx1823-93 U/L Alkaline Yuvjixaxegm6727-124 U/LTotal Protein7.66.4-8.2 g/dLAlbumin Level3.13.4- 5.0 g/dLGlobulin4.5Albumin Globulin Ratio0.7Performing Lab:see note - [facility] LBE coli Shiga Toxin EIA Reviewed date:03/05/2025 08:44:56 AM Interpretation: Performing Lab: Notes/Report: [facility] ,E coli Shiga Toxin EIASee Below For Report E coli Shiga Toxin EIA WILL FOLLOW E coli Shiga Toxin EIANegative E coli Shiga Toxin EIA WILL FOLLOW E coli Shiga Toxin EIAPerformed at: - [facility] E coli Shiga Toxin EIA WILL FOLLOW E coli Shiga Toxin [id number] [place], [place] [id number] E coli Shiga Toxin EIA WILL FOLLOW E coli Shiga Toxin EIALab Director: Doyle Mendenhall PhD, Phone: [phone] E coli Shiga Toxin EIA WILL FOLLOW Performing Lab:see note LC - [facility] LB SEE REPORT - Superintendent Plant Protection Id information not found for OBX-specific newscast producer legend Salmonella/Shigella Screen Reviewed date:03/05/2025 08:44:56 AM Interpretation: Performing Lab: Notes/Report: [facility] ,Salmonella/Shigella ScreenSee Below For Report Salmonella/Shigella Screen Salmonella/Shigella ScreenNo Salmonella or Shigella recovered. Salmonella/Shigella Screen Performing Lab:see noteLC - [facility] LBCampylobacter Culture Reviewed date:03/05/2025 08:44:56 AM Interpretation: Performing Lab: Notes/Report: [facility] ,Campylobacter CultureSee Below For Report Campylobacter Culture No Campylobacter species isolated. Performing Lab:see note - [facility] LBLIPASE Reviewed date:02/27/2025 08:35:01 AM Interpretation: Performing Lab: Notes/Report: [facility] ,Cvucft41.016.0-77.0 U/LPerforming Lab:see note - [facility] LB MAGNESIUM Reviewed date:02/27/2025 08:35:01 AM Interpretation: Performing Lab: Notes/Report: [facility] ,Magnesium1.71.8-2.4 mg/dLPerforming Lab:see note - [facility] LBC. Difficile PCR Reviewed date:02/27/2025 08:35:01 AM Interpretation: Performing Lab: Notes/Report: [facility] ,C. Difficile PCRNEGATIVEPerforming Lab:[facility] LB LACTATE or LACTIC ACID Reviewed date:03/05/2025 08:44:56 AM Interpretation: Performing Lab: Notes/Report: [facility] ,Lactate/Lactic Acid3.60.4-2.0 mmol/LRESULTS CALLED TO GAY ENCISOPerforming Lab:see [facility] LBGLYCOHEMOGLOBIN A1C Reviewed date:02/26/2025 09:22:15 AM Interpretation: Performing Lab: Notes/Report: [facility] ,Glycohemoglobin A1C8.34.5-6.2 % ADA RECOMMENDED LIMIT 4.0 - 6.0 ADA THERAPEUTIC TARGET < 7.0 ACTION SUGGESTED > 7.0 Estimated Average Fqhltww228Tgacmdxias Lab:see note - [facility] LB LACTATE or LACTIC ACID Reviewed date:02/27/2025 04:34:12 PM Interpretation: Performing Lab: Notes/Report: [facility] ,Lactate/Lactic Acid2.10.4-2.0 mmol/LRESULTS CALLED TO Hebert SAMforming Lab:see [facility] LBLACTATE or LACTIC ACID Reviewed date:03/12/2025 08:33:57 AM Interpretation: Performing Lab: Notes/Report: N [facility] ,Lactate/Lactic Acid3.00.4-2.0 mmol/LRESULTS CALLED TO Gay EncisoPerforming Lab:see noteML - [facility] LBUA RANDOM W or MICROSCOPIC Reviewed date:03/12/2025 08:33:57 AM Interpretation: Performing Lab: Notes/Report: [facility] ,Color UrineYELLOWYELLOWClarity UrineCLEARCLEARSpecific [place] Urine1.025 1.005-1.025pH Urine5.55.0-9.0Protein UrineNEGATIVENEG/TRACE mg/dLGlucose Urine PL982SIIOEPQX mg/dLBilirubin UrineNEGATIVENEGATIVEKetones UrineNEGATIVENEGATIVE mg/dLBlood UrineNEGATIVENEGATIVENitrite UrineNEGATIVENEGATIVEUrobilinogen Urine 0.20.2-1.0 EU/dLLeukocyte Esterase UrineNEGATIVENEGATIVEWBC UrineNONE SEENNONE SEEN #/HPFRBC Urine0-20-2 #/HPFBacteria UrineTRACENONE SEEN #/HPFMucus UrineNONE SEENNONE SEENSquamous Epithelial Cell UrineMODERATENONE/RARE #/LPFCrystals Seen? None SeenNone Seen #/HPFCast Seen?NONE SEENNONE SEEN #/LPFUrine Culture IndicatedALREADY ORDEREDPerforming Lab:see noteML - [facility] LB Urine Culture - [facility] Reviewed date:03/12/2025 11:26:52 AM Interpretation: Performing Lab: Notes/Report: [facility] ,Urine Culture - FRMCSee Below For Report Urine Culture - [facility] <9,000 colonies/ml mixed Urine Culture - FRMCbacterial skin contaminants Urine Culture - [facility] <9,000 colonies/ml mixed Urine Culture - [facility]2 Days Urine Culture - [facility] <9,000 colonies/ml mixed Urine Culture - [facility] Urine Culture - [facility] <9,000 colonies/ml mixed Urine Culture - [facility]CTesting [facility] Urine Culture - [facility] <9,000 colonies/ml mixed Urine Culture - [id number] [place] [address] Urine Culture - [facility] <9,000 colonies/ml mixed Performing Lab:see noteML - [facility] LBLACTATE or LACTIC ACID Reviewed date:03/12/2025 08:33:57 AM Interpretation: Performing Lab: Notes/Report: [facility] ,Lactate/Lactic Acid3.00.4-2.0 mmol/L RESULTS CALLED TO ER Iwona Mckeon RN@BY Cresencio Odom MLT at 2333 Performing Lab:see note - [facility] LBLACTATE or LACTIC ACID Reviewed date:03/12/2025 08:33:57 AM Interpretation: Performing Lab: Notes/Report: [facility] ,Lactate/Lactic Acid2.00.4-2.0 mmol/LPerforming Lab:see noteML - [facility] LBLACTATE or LACTIC ACID Reviewed date:03/19/2025 08:16:28 AM Interpretation: Performing Lab: Notes/Report: [facility] ,Lactate/Lactic Acid2.50.4-2.0 mmol/LRESULTS CALLED TO DR. GAY ENCISO at 1349 Performing Lab:see noteML - [facility] LBAnaerobic Culture Reviewed date:04/17/2025 08:17:09 AM Interpretation: Performing Lab: Notes/Report: [facility] ,Anaerobic CultureSee Below For Report Anaerobic Culture Anaerobic CultureNo anaerobic growth in 72 hours. Anaerobic Culture Performing Lab:see noteLC - [facility] LBAerobic Culture Reviewed date:04/17/2025 08:17:09 AM Interpretation: Performing Lab: Notes/Report: [facility] ,Aerobic CultureSee Below For Report Aerobic Culture Aerobic CultureMixed skin osmany Aerobic Culture Aerobic CulturePerformed at: - LabFormer[facility] Aerobic Culture Aerobic [address] [place], [place] [id number] Aerobic Culture Aerobic CultureLab Director: Doyle Mendenhall PhD, Phone: [phone] Aerobic Culture Performing Lab:see note LC - [facility] LB SEE REPORT - Superintendent Plant Protection Id information not found for OBX-specific newscast producer legend Anaerobic Culture Reviewed date:04/17/2025 08:17:09 AM Interpretation: Performing Lab: Notes/Report: [facility] ,Anaerobic CultureSee Below For Report Anaerobic Culture Anaerobic CultureNo anaerobic growth in 72 hours. Anaerobic Culture Performing Lab:see note - [facility] LBECG 12 lead Reviewed date:05/07/2025 08:20:00 AM Interpretation: Performing Lab: Notes/Report: Source Facility: [facility] [place] [address] Electrocardiograph Report Signed Patient: JONES PANIAGUA MR#: [id number] : 1980 Acct:[id number] Age/Sex: 44 / F ADM Date: 05/05/25 Loc: ER Attending Dr: Ordering Physician: Randy Maddox Date of Service: 05/06/25 Procedure(s): ECG 12 lead Accession Number(s): [id number] cc: [facility] Test Date: 2025-05-05 Pat Name: JONES PANIAGUA Department: Room: - Gender: Female City Letter Carrier: : 1980 Requested By: [id number] Order Number: [id number] Reading MD: GURWINDER BARONE M.D. Measurements Intervals [place] Rate: 82 P: 55 [place]: 166 QRS: 7 QRSD: 80 T: 56 QT: 360 QTc: 398 Interpretive Statements 1100 Sinus rhythm 8102 Low QRS voltage in chest leads 9120 atypical ECG Compared to ECG 12/05/2023 16:27:52 No significant changes Electronically Signed On 05-06-2025 10:34:38 EST by GURWINDER BARONE M.D. Dictated By: GURWINDER BARONE Signed By: 05/06/25 1034 DD/ 2358 TD/TT: Wire Spiral Binder:BNP Reviewed date:05/07/2025 08:20:00 AM Interpretation: Performing Lab: Notes/Report: [facility] ,NT Pro B Type Natriuretic Pept32.0<=450.0 pg/mLPerforming Lab:see noteML - [facility] LBCBC AUTO DIFF Reviewed date:05/07/2025 08:20:00 AM Interpretation: Performing Lab: Notes/Report: [facility] ,White Blood Count14.14.0-11.0 10 3/uLRed Blood Count4.434.20-5.40 10 6/uL Flprpjqyau61.912.0-16.0 g/dUWagftmvptb98.336.0-48.0 %Mean Corpuscular Nwirry18.5 81.0-99.0 fLMean Corpuscular Uhsouyswpu15.426.7-34.0 pgMean Corpuscular HGB Conc 32.929.9-35.2 g/dLRed Cell Distribution Width14.311.0-15.0 %Platelet Mlovx523 150-450 10 3/uLMean Platelet Volume9.99.5-13.5 fLNeutrophils Percent Auto78.6 43.0-75.0 %Lymphocytes Percent Auto12.520.5-60.0 %Monocytes Percent Auto6.41.7- 12.0 %Eosinophils Percent Auto0.80.9-7.0 %Basophils Percent Auto0.40.2-2.0 % Immature Granulocytes Pct Auto1.30.0-0.5 %Neutrophils Absolute Auto11.11.4-6.5 10 3/uLLymphocytes Absolute Auto1.81.2-3.8 10 3/uLMonocytes Absolute Auto0.90.3- 0.8 10 3/uLEosinophils Absolute Auto0.10.0-0.7 10 3/uLBasophils Absolute Auto0.1 0.0-0.1 10 3/uLImmature Granulocytes Abs Auto0.190.00-0.03 10 3/uLPerforming Lab:see noteML - [facility] LBPROF 14(COMP METB) Reviewed date:05/07/2025 08:20:00 AM Interpretation: Performing Lab: Notes/Report: [facility] ,Fjxcru871302-712 mmol/LPotassium3.83.5-5.1 mmol/XAwbjrinc85677-495 mmol/LCarbon Gksvgtg23.521.0-32.0 mmol/LAnion Gap11.8Habwijh27421-412 mg/dLBlood Urea Alkrbwge78.07.0-18.0 mg/dLCreatinine0.770.55-1.02 mg/dLEstimated GFR ( Cindi>60>=60 mL/min/1.73m 2Estimated GFR (Non- Coretta>60>=60 mL/min/1.73m 2BUN Creatinine Ratio19.2Rhviqzr3.38.5-10.1 mg/dLBilirubin Total0.20.2-1.0 mg/dL Aspartate Amino Transferase<515-37 U/LAlanine Zkxxrpuyywvmrboy3774-01 U/L Alkaline Giicnrqvarn1422-151 U/LTotal Protein7.66.4-8.2 g/dLAlbumin Level3.33.4- 5.0 g/dLGlobulin4.3Albumin Globulin Ratio0.8Performing Lab:see noteML - [facility] LBTroponin I High Sensitivity Reviewed date:05/07/2025 08:20:00 AM Interpretation: Performing Lab: Notes/Report: [facility] ,Troponin I High Twtrglhkded73.64.0-51.3 pg/mL CUT-OFF POINTS HAVE BEEN ESTABLISHED BASED ON THE FOURTH UNIVERSAL DEFINITION OF MYOCARDIAL INFARCTION. THE UPPER REFERENCE LIMIT (URL) OF TROPONIN, DEFINED THE 99TH PERCENTILE OF cTnI DISTRIBUTION IN A REFERENCE POPULATION, HAS BEEN CONFIRMED THE DECISION THRESHOLD FOR ND DIAGNOSIS. 99TH PERCENTILE = 51.4 PG/ML NOTE: HIGH-SENSITIVITY TROPONIN ASSAY IS NOT INTENDED TO BE USED IN ISOLATION BUT SHOULD BE INTERPRETED IN CONJUNCTION WITH OTHER DIAGNOSTIC AND CLINICAL INFORMATION. Performing Lab:see note - [facility] LBCT ABDOMEN W CON Reviewed date:03/22/2025 01:33:13 PM Interpretation: Performing Lab: Notes/Report: Source Facility: [facility]-[address] [place] [address] CT Scan Report Signed Patient: JONES PANIAGUA MR#: [id number] : 1980 Acct:[id number] Age/Sex: 44 / F ADM Date: 03/22/25 Loc: CT Attending Dr: Ingrid Portillo SEA SHELL GATHERER Ordering Physician: Ingrid Portillo NP Date of Service: 03/22/25 Procedure(s): CT abdomen w con Accession Number(s): [id number] cc: GAY ENCISO [place] [address] Patient Name: JONES PANIAGUA MRN: [id number] date: 1980 Sex: F Assigned Patient Location: CT Current Patient Location: [facility] Accession/Order Number: [id number] Exam Date: 03/22/2025 10:05 Report Date: 03/22/2025 [...] Nelson M.D. 03/22/2025 1:02 PM Dictation Location: [place] [address] Electronically authenticated by: [id number] Y Date: 03/22/2025 13:02 Dictated By: Simin Nelson M.D. Signed By: 03/22/25 1305 DD/ 1302 TD/TT: Wire Spiral Binder:Blood Culture 2 Reviewed date:03/05/2025 08:44:56 AM Interpretation: Performing Lab: Notes/Report: LEFT AC [facility] ,Blood Culture 2See Below For Report Blood Culture 2 NG5D NO GROWTH AT 5 DAYS.^NO GROWTH AT 5 DAYS. Performing Lab:see note - [facility] LBBlood Culture 1 Reviewed date:03/05/2025 08:44:56 AM Interpretation: Performing Lab: Notes/Report: RIGHT [facility] ,Blood Culture 1See Below For Report Blood Culture 1 NG5D NO GROWTH AT 5 DAYS.^NO GROWTH AT 5 DAYS. Performing Lab:see noteML - [facility] LBLACTATE or LACTIC ACID Reviewed date:03/02/2025 12:05:01 PM Interpretation: Performing Lab: Notes/Report: N [facility] ,Lactate/Lactic Acid2.10.4-2.0 mmol/LRESULTS CALLED TO Gay EncisoPerforming Lab:see noteML - [facility] LBTSH Reviewed date:08/08/2024 02:48:03 PM Interpretation: Performing Lab: Notes/Report: [facility] ,Thyroid Stimulating Hormone0.6230.358-3.740 uIU/mLPerforming Lab:see noteML - [facility] LBT4 Reviewed date:08/08/2024 02:48:03 PM Interpretation: Performing Lab: Notes/Report: [facility] ,T4 Ayocsqmjm01.404.80-13.90 ug/dLPerforming Lab:see note - [facility] LBPROF 14(COMP METB) Reviewed date:08/08/2024 02:48:03 PM Interpretation: Performing Lab: Notes/Report: [facility] ,Ybthnv886184-000 mmol/LPotassium3.43.5-5.1 mmol/AHbhaccwh22618-056 mmol/LCarbon Wcbpxpq81.921.0-32.0 mmol/LAnion Gap12.8Ixposel1852-069 mg/dLBlood Urea Nitrogen 20.07.0-18.0 mg/dLCreatinine0.640.55-1.02 mg/dLEstimated GFR ( Cindi>60 >=60 mL/min/1.73m 2Estimated GFR (Non- Coretta>60>=60 mL/min/1.73m 2BUN Creatinine Ratio31.6Dlbyasy1.28.5-10.1 mg/dLBilirubin Total0.20.2-1.0 mg/dL Aspartate Amino Ozxqkxpamqf6269-95 U/LAlanine Slpzsyylnpydndhc9620-13 U/L Alkaline Ekqvrfwdvxh3155-760 U/LTotal Protein6.76.4-8.2 g/dLAlbumin Level3.23.4- 5.0 g/dLGlobulin3.5Albumin Globulin Ratio0.9Performing Lab:see noteML - [facility] LBLIPID PROFILE Reviewed date:08/08/2024 02:48:03 PM Interpretation: Performing Lab: Notes/Report: [facility] ,Trignwiuciges513<=150 mg/vSSzemkdecztu627<=200 mg/dLHDL Xnfmirfovgw5984-77 mg/dL > or =60 mg/dl - LOW CARDIOVASCULAR RISK <40 mg/dl - HIGH CARDIOVASCULAR RISK LDL Cholesterol Uojwqoihya423.0 <100 mg/dl OPTIMAL 100-129 mg/dl NEAR OR ABOVE OPTIMAL 130-159 mg/dl BORDERLINE HIGH 160-189 mg/dl HIGH >190 mg/dl VERY HIGH VLDL QHRYILSYBSL00.8Chol HDL Ratio6.2 3.3 - 4.4 LOW RISK 4.4 - 7.1 AVERAGE RISK 7.1 - 11.0 MODERATE RISK >11.0 HIGH RISK Performing [facility] LBIRON Reviewed date:08/08/2024 02:48:03 PM Interpretation: Performing Lab: Notes/Report: [facility] ,Iddi907.050.0-170.0 ug/dLPerforming Lab:[facility] LB INSULIN Reviewed date:08/15/2024 01:02:11 PM Interpretation: Performing Lab: Notes/Report: [facility] ,Xzcrptk24.12.6-24.9 uIU/mL Performed at: [address] [id number] Physician'S Aide: Doyle Mendenhall PhD, Phone: [phone] Performing Lab:see [facility] LBFREE T3 Reviewed date:08/08/2024 02:48:03 PM Interpretation: Performing Lab: Notes/Report: [facility] ,Free T32.892.18-3.98 pg/mLPerforming Lab:see [facility] LB Vitamin B12 Reviewed date:08/15/2024 01:02:11 PM Interpretation: Performing Lab: Notes/Report: [facility] ,Vitamin X76690810-7655 pg/mL Performed at: [address] [id number] Physician'S Aide: Doyle Mendenhall PhD, Phone: [phone] Performing Lab:see [facility] LBE coli Shiga Toxin EIA Reviewed date:10/17/2024 09:27:10 AM Interpretation: Performing Lab: Notes/Report: [facility] ,E coli Shiga Toxin EIASee Below For Report E coli Shiga Toxin EIA Negative E coli Shiga Toxin EIAPerformed at: [facility] E coli Shiga Toxin EIA Negative E coli Shiga Toxin [id number] [place], [place] [id number] E coli Shiga Toxin EIA Negative E coli Shiga Toxin EIALab Director: Doyle Mendenhall PhD, Phone: [phone] E coli Shiga Toxin EIA Negative Performing Lab:see note LC - [facility] LB SEE REPORT - Superintendent Plant Protection Id information not found for OBX-specific newscast producer legend Salmonella/Shigella Screen Reviewed date:10/17/2024 09:27:10 AM Interpretation: Performing Lab: Notes/Report: [facility] ,Salmonella/Shigella ScreenSee Below For Report Salmonella/Shigella Screen Salmonella/Shigella ScreenNo Salmonella or Shigella recovered. Salmonella/Shigella Screen Performing Lab:see noteLC - [facility] LBCampylobacter Culture Reviewed date:10/17/2024 09:27:10 AM Interpretation: Performing Lab: Notes/Report: [facility] ,Campylobacter CultureSee Below For Report Campylobacter Culture No Campylobacter species isolated. Performing Lab:see noteLC - [facility] LBC. Difficile PCR Reviewed date:10/25/2024 10:18:31 AM Interpretation: Performing Lab: Notes/Report: [facility] ,C. 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 legend US abdomen complete Reviewed date:01/01/2025 12:58:33 PM Interpretation: Performing Lab: Notes/Report: Source Facility: [place] [address] Ultrasound Report Signed Patient: JONES PANIAGUA MR#: [id number] : 1980 Acct:[id number] Age/Sex: 44 / F ADM Date: 12/30/24 Loc: US Attending Dr: Ingrid Portillo NP Ordering Physician: Ingrid Portilol NP Date of Service: 12/30/24 Procedure(s): US abdomen complete Accession Number(s): [id number] cc: GAY ENCISO ; Ingrid Portillo NP [place] [address] Patient Name: JONES PANIAGUA MRN: [id number] date: 1980 Sex: F Assigned Patient Location: Current Patient Location: Accession/Order Number: [id number] Exam Date: 12/30/2024 15:15 Report Date: 12/30/2024 [...] Jr., D.O. 12/30/2024 3:18 PM Dictation Location: [place] [address] Electronically authenticated by: [id number] Y Date: 12/30/2024 15:18 Dictated By: Karel Ricci M.D. Signed By: 12/30/24 1520 DD/ 1518 TD/TT: Wire Spiral Binder:CBC AUTO DIFF Reviewed date:02/27/2025 08:35:01 AM Interpretation: Performing Lab: Notes/Report: [facility] ,White Blood Count11.64.0-11.0 10 3/uLRed Blood Count4.314.20-5.40 10 6/uL Oupbxtgydt97.912.0-16.0 g/tLLwdysoyuot59.336.0-48.0 %Mean Corpuscular Borebh11.8 81.0-99.0 fLMean Corpuscular Ermiuvffkr90.326.7-34.0 pgMean Corpuscular HGB Conc 33.729.9-35.2 g/dLRed Cell Distribution Width13.911.0-15.0 %Platelet Gtufu980 150-450 10 3/uLMean Platelet Aksmtv77.19.5-13.5 fLNeutrophils Percent Auto69.0 43.0-75.0 %Lymphocytes Percent Auto20.620.5-60.0 %Monocytes Percent Auto7.11.7- 12.0 %Eosinophils Percent Auto1.20.9-7.0 %Basophils Percent Auto0.50.2-2.0 % Immature Granulocytes Pct Auto1.60.0-0.5 %Neutrophils Absolute Auto8.01.4-6.5 10 3/uLLymphocytes Absolute Auto2.41.2-3.8 10 3/uLMonocytes Absolute Auto0.80.3-0.8 10 3/uLEosinophils Absolute Auto0.10.0-0.7 10 3/uLBasophils Absolute Auto0.10.0- 0.1 10 3/uLImmature Granulocytes Abs Auto0.190.00-0.03 10 3/uLPerforming Lab:see noteML - [facility] LBLACTATE or LACTIC ACID Reviewed date:02/27/2025 08:35:01 AM Interpretation: Performing Lab: Notes/Report: [facility] ,Lactate/Lactic Acid2.30.4-2.0 mmol/L RESULTS CALLED TO OLY PATEL RN @BY Miroslava Aguilar at 1901 Performing Lab:see noteML - [facility] LBPROF 14(COMP METB) Reviewed date:02/27/2025 08:35:01 AM Interpretation: Performing Lab: Notes/Report: [facility] ,Uiedii219690-075 mmol/LPotassium3.73.5-5.1 mmol/RYwawnchy10759-224 mmol/LCarbon Ntqydub61.421.0-32.0 mmol/LAnion Gap18.7Rbehkyy99673-313 mg/dLBlood Urea Wrvoecds98.07.0-18.0 mg/dLCreatinine0.760.55-1.02 mg/dLEstimated GFR ( Cindi>60>=60 mL/min/1.73m 2Estimated GFR (Non- Coretta>60>=60 mL/min/1.73m 2BUN Creatinine Ratio14.2Wauvsuh0.18.5-10.1 mg/dLBilirubin Total0.20.2-1.0 mg/dL Aspartate Amino Hrcgmcmhecs2961-38 U/LAlanine Fzvwfsxoxwwichky8957-70 U/L Alkaline Simusjtumxp3824-551 U/LTotal Protein7.96.4-8.2 g/dLAlbumin Level3.23.4- 5.0 g/dLGlobulin4.7Albumin Globulin Ratio0.7Performing Lab:see noteML - [facility] LBUA Micro, reflex to culture Reviewed date:02/27/2025 08:35:01 AM Interpretation: Performing Lab: Notes/Report: [facility] ,Color UrineLT. YELLOWYELLOWClarity UrineCLEARCLEARSpecific [place] Urine1.025 1.005-1.025pH Urine5.55.0-9.0Protein UrineNEGATIVENEG/TRACE mg/dLGlucose Urine UANEGATIVENEGATIVE mg/dLBilirubin UrineNEGATIVENEGATIVEKetones UrineNEGATIVE NEGATIVE mg/dLBlood UrineNEGATIVENEGATIVENitrite UrineNEGATIVENEGATIVE Urobilinogen Urine0.20.2-1.0 EU/dLLeukocyte Esterase UrineTRACENEGATIVEWBC Urine 2-5NONE SEEN #/HPFRBC Urine2-50-2 #/HPFBacteria UrineSMALLNONE SEEN #/HPFMucus UrineNONE SEENNONE SEENSquamous Epithelial Cell UrineFEWNONE/RARE #/LPFCrystals Seen?None SeenNone Seen #/HPFCast Seen?NONE SEENNONE SEEN #/LPFUrine Culture IndicatedYES-FRMCPerforming Lab:see noteML - [facility] LBUrine Culture - [facility] Reviewed date:03/01/2025 03:16:08 PM Interpretation: Performing Lab: Notes/Report: [facility] ,Urine Culture - FRMCSee Below For Report Urine Culture - [facility] 20,000 colonies/ml mixed bacterial skin contaminants Urine Culture - FRMCincluding gram negative bacilli - 2 Days Urine Culture - [facility] 20,000 colonies/ml mixed bacterial skin contaminants Urine Culture - [facility] Urine Culture - [facility] 20,000 colonies/ml mixed bacterial skin contaminants Urine Culture - FRMCTesting performed at [facility] Urine Culture - [facility] 20,000 colonies/ml mixed bacterial skin contaminants Urine Culture - [id number] [place] [address] Urine Culture - [facility] 20,000 colonies/ml mixed bacterial skin contaminants Performing Lab:see noteML - [facility] LBPROF 14(COMP METB) Reviewed date:02/27/2025 08:35:01 AM Interpretation: Performing Lab: Notes/Report: [facility] ,Slfvja753649-835 mmol/LPotassium3.53.5-5.1 mmol/AKmmqusqj13014-042 mmol/LCarbon Bczzylc91.321.0-32.0 mmol/LAnion Gap15.7Qryvacd02430-954 mg/dLBlood Urea Nitrogen9.07.0-18.0 mg/dLCreatinine0.660.55-1.02 mg/dLEstimated GFR ( Cindi>60>=60 mL/min/1.73m 2Estimated GFR (Non- Coretta>60>=60 mL/min/1.73m 2BUN Creatinine Ratio13.2Ldpzqqx2.78.5-10.1 mg/dLBilirubin Total0.20.2-1.0 mg/dL Aspartate Amino Qdppqtxfmge9135-94 U/LAlanine Egiquxdvjkplnpik8875-75 U/L Alkaline Kqxjbdfsauc1960-121 U/LTotal Protein7.76.4-8.2 g/dLAlbumin Level3.33.4- 5.0 g/dLGlobulin4.4Albumin Globulin Ratio0.8Performing Lab:see noteML - [facility] LBPROF 14(COMP METB) Reviewed date:02/27/2025 04:34:12 PM Interpretation: Performing Lab: Notes/Report: [facility] ,Ybkeni258888-428 mmol/LPotassium3.83.5-5.1 mmol/LIvoasxdj21798-342 mmol/LCarbon Rwsykul33.421.0-32.0 mmol/LAnion Gap14.5Kbpavpb14056-575 mg/dLBlood Urea Nklvvdzs02.07.0-18.0 mg/dLCreatinine0.610.55-1.02 mg/dLEstimated GFR ( Cindi>60>=60 mL/min/1.73m 2Estimated GFR (Non- Coretta>60>=60 mL/min/1.73m 2BUN Creatinine Ratio21.6Joixaun0.08.5-10.1 mg/dLBilirubin Total0.20.2-1.0 mg/dL Aspartate Amino Izihgwnywqc502-94 U/LAlanine Ibqxoxyqzoaegzhg2569-04 U/LAlkaline Xbkydshugpe9724-287 U/LTotal Protein7.46.4-8.2 g/dLAlbumin Level3.03.4-5.0 g/dL Globulin4.4Albumin Globulin Ratio0.7Performing Lab:see noteML - [facility] LBCBC AUTO DIFF Reviewed date:03/05/2025 08:44:56 AM Interpretation: Performing Lab: Notes/Report: [facility] ,White Blood Count10.34.0-11.0 10 3/uLRed Blood Count4.254.20-5.40 10 6/uL Oneomgzhry81.612.0-16.0 g/pZMwgslfpvay40.936.0-48.0 %Mean Corpuscular Wcefpz98.2 81.0-99.0 fLMean Corpuscular Wrnqxksqgp43.026.7-34.0 pgMean Corpuscular HGB Conc 33.329.9-35.2 g/dLRed Cell Distribution Width14.111.0-15.0 %Platelet Vqzxm200 150-450 10 3/uLMean Platelet Sckegl37.49.5-13.5 fLNeutrophils Percent Auto74.0 43.0-75.0 %Lymphocytes Percent Auto16.620.5-60.0 %Monocytes Percent Auto6.61.7- 12.0 %Eosinophils Percent Auto0.90.9-7.0 %Basophils Percent Auto0.50.2-2.0 % Immature Granulocytes Pct Auto1.40.0-0.5 %Neutrophils Absolute Auto7.71.4-6.5 10 3/uLLymphocytes Absolute Auto1.71.2-3.8 10 3/uLMonocytes Absolute Auto0.70.3-0.8 10 3/uLEosinophils Absolute Auto0.10.0-0.7 10 3/uLBasophils Absolute Auto0.10.0- 0.1 10 3/uLImmature Granulocytes Abs Auto0.140.00-0.03 10 3/uLPerforming Lab:see noteML - [facility] LBPROF CHEM 8 (BAS METB) Reviewed date:03/05/2025 08:44:56 AM Interpretation: Performing Lab: Notes/Report: [facility] ,Rzoila660411-928 mmol/LPotassium4.03.5-5.1 mmol/LOgzavrew71475-100 mmol/LCarbon Sodwqxd49.121.0-32.0 mmol/LAnion Gap18.0Fypmglf32837-209 mg/dLBlood Urea Nitrogen8.07.0-18.0 mg/dLCreatinine0.610.55-1.02 mg/dLEstimated GFR ( Cindi>60>=60 mL/min/1.73m 2Estimated GFR (Non- Coretta>60>=60 mL/min/1.73m 2BUN Creatinine Ratio13.6Qiygzfm0.88.5-10.1 mg/dLPerforming Lab:see noteML - [facility] LBUA RANDOM W or MICROSCOPIC Reviewed date:03/05/2025 08:44:56 AM Interpretation: Performing Lab: Notes/Report: [facility] ,Color UrineLT. YELLOWYELLOWClarity UrineCLEARCLEARSpecific [place] Urine>=1.030 1.005-1.025pH Urine6.05.0-9.0Protein UrineTRACENEG/TRACE mg/dLGlucose Urine UA 250NEGATIVE mg/dLBilirubin UrineNEGATIVENEGATIVEKetones UrineNEGATIVENEGATIVE mg/dLBlood UrineNEGATIVENEGATIVENitrite UrineNEGATIVENEGATIVEUrobilinogen Urine 0.20.2-1.0 EU/dLLeukocyte Esterase UrineSMALLNEGATIVEWBC Urine5-10NONE SEEN #/HPFRBC Urine0-20-2 #/HPFBacteria UrineSMALLNONE SEEN #/HPFMucus UrineTRACENONE SEENSquamous Epithelial Cell UrineMANYNONE/RARE #/LPFCrystals Seen?None SeenNone Seen #/HPFCast Seen?NONE SEENNONE SEEN #/LPFUrine Culture IndicatedYES-[facility] Performing Lab:see noteML - [facility] LBUrine Culture - [facility] Reviewed date:03/09/2025 11:24:45 AM Interpretation: Performing Lab: Notes/Report: [facility] ,Urine Culture - FRMCSee Below For Report Urine Culture - [facility] Testing performed at [facility] O:CANALB Isolated Urine Culture - [facility] [place] Count Urine Culture - [id number] [place] [address] Urine Culture - [facility] Testing performed at [facility] O:CANALB Isolated Urine Culture - [facility] [place] Count Urine Culture - FRMCSee Below For Report Urine Culture - [facility] Testing performed at [facility] O:CANALB Isolated Urine Culture - [facility] [place] Count Urine Culture - FRMCSee Below For Report Urine Culture - [facility] Testing performed at [facility] O:CANALB Isolated Urine Culture - [facility] [place] Count Urine Culture - [facility]>100,000 Urine Culture - [facility] Testing performed at [facility] O:CANALB Isolated Urine Culture - [facility] [place] Count Performing Lab:see noteML - [facility] LBXR chest 1V Reviewed date:03/05/2025 08:44:56 AM Interpretation: Performing Lab: Notes/Report: Source Facility: [place] [address] [place] [address] XRay Report Signed Patient: JONES PANIAGUA MR#: [id number] : 1980 Acct:[id number] Age/Sex: 44 / F ADM Date: 03/03/25 Loc: ER Attending Dr: Ordering Physician: Zoe Lopez M.D. Date of Service: 03/03/25 Procedure(s): XR chest 1V Accession Number(s): [id number] cc: GAY ENCISO ; Zoe Lopez M.D. [place] [address] Patient Name: JONES PANIAGUA MRN: [id number] date: 1980 Sex: F Assigned Patient Location: ER Current Patient Location: ER Accession/Order Number: [id number] Exam Date: 03/03/2025 16:20 Report Date: 03/03/2025 [...] Cox M.D. 03/03/2025 5:30 PM Dictation Location: [place] [address] Electronically authenticated by: [id number] Y Date: 03/03/2025 17:30 Dictated By: Rafal Cox M.D. Signed By: 03/03/251731 DD/ 29 TD/TT: Wire Spiral Binder:LACTATE or LACTIC ACID Reviewed date:03/05/2025 08:44:56 AM Interpretation: Performing Lab: Notes/Report: [facility] ,Lactate/Lactic Acid2.80.4-2.0 mmol/LRESULTS CALLED TO DR. Negreteforming Lab: see noteML - [facility] LBLACTATE or LACTIC ACID Reviewed date:03/08/2025 11:03:04 AM Interpretation: Performing Lab: Notes/Report: [facility] ,Lactate/Lactic Acid1.80.4-2.0 mmol/LPerforming Lab:see noteML - [facility] LBCBC AUTO DIFF Reviewed date:03/12/2025 08:33:57 AM Interpretation: Performing Lab: Notes/Report: [facility] ,White Blood Count12.24.0-11.0 10 3/uLRed Blood Count4.274.20-5.40 10 6/uL Socwnrcwvf30.612.0-16.0 g/uUAnbgqinlnt51.436.0-48.0 %Mean Corpuscular Dnkndd60.0 81.0-99.0 fLMean Corpuscular Gbdpoqdjcf98.926.7-34.0 pgMean Corpuscular HGB Conc 32.929.9-35.2 g/dLRed Cell Distribution Width14.111.0-15.0 %Platelet Mgbuh834 150-450 10 3/uLMean Platelet Igpoyy12.29.5-13.5 fLNeutrophils Percent Auto75.0 43.0-75.0 %Lymphocytes Percent Auto15.220.5-60.0 %Monocytes Percent Auto6.61.7- 12.0 %Eosinophils Percent Auto0.80.9-7.0 %Basophils Percent Auto0.40.2-2.0 % Immature Granulocytes Pct Auto2.00.0-0.5 %Neutrophils Absolute Auto9.21.4-6.5 10 3/uLLymphocytes Absolute Auto1.91.2-3.8 10 3/uLMonocytes Absolute Auto0.80.3-0.8 10 3/uLEosinophils Absolute Auto0.10.0-0.7 10 3/uLBasophils Absolute Auto0.10.0- 0.1 10 3/uLImmature Granulocytes Abs Auto0.240.00-0.03 10 3/uLPerforming Lab:see noteML - [facility] LBPROF CHEM 8 (BAS METB) Reviewed date:03/12/2025 08:33:57 AM Interpretation: Performing Lab: Notes/Report: [facility] ,Tfdopr072982-634 mmol/LPotassium3.93.5-5.1 mmol/MRfxcczjq35141-212 mmol/LCarbon Ikvhasu94.421.0-32.0 mmol/LAnion Gap14.2Rilbdtr73055-833 mg/dLBlood Urea Nitrogen9.07.0-18.0 mg/dLCreatinine0.630.55-1.02 mg/dLEstimated GFR ( Cindi>60>=60 mL/min/1.73m 2Estimated GFR (Non- Coretta>60>=60 mL/min/1.73m 2BUN Creatinine Ratio14.2Grhqhss3.98.5-10.1 mg/dLPerforming Lab:see noteML - [facility] LBXR thoracic spine 3V Reviewed date:03/12/2025 08:33:57 AM Interpretation: Performing Lab: Notes/Report: Source Facility: [place] [address] XRay Report Signed Patient: JONES PANIAGUA MR#: [id number] : 1980 Acct:[id number] Age/Sex: 44 / F ADM Date: Loc: [facility] Attending Dr: KIMBERLY FLORES Ordering Physician: KIMBERLY FLORES Date of Service: 03/09/25 Procedure(s): XR thoracic spine 3V Accession Number(s): [id number] cc: GAY ENCISO ; KIMBERLY FLORES [place] [address] Patient Name: JONES PANIAGUA MRN: [id number] date: 1980 Sex: F Assigned Patient Location: [facility] Current Patient Location: [facility] Accession/Order Number: [id number] Exam Date: 03/09/2025 17:42 Report Date: 03/09/2025 [...] Cox M.D. 03/09/2025 9:50 PM Dictation Location: [place] [address] Electronically authenticated by: [id number] Y Date: 03/09/2025 21:50 Dictated By: Rafal Cox M.D. Signed By: 03/09/252151 DD/ 49 TD/TT: Wire Spiral Binder:LACTATE or LACTIC ACID Reviewed date:03/12/2025 08:33:57 AM Interpretation: Performing Lab: Notes/Report: [facility] ,Lactate/Lactic Acid2.20.4-2.0 mmol/L RESULTS CALLED TO LISA Urbina RN @BY Cresencio Odom MLT at 0203 Performing Lab:see noteML - [facility] LBLACTATE or LACTIC ACID Reviewed date:03/13/2025 08:32:42 AM Interpretation: Performing Lab: Notes/Report: [facility] ,Lactate/Lactic Acid1.30.4-2.0 mmol/LPerforming Lab:see noteML - [facility] LBLACTATE or LACTIC ACID Reviewed date:03/15/2025 09:25:36 AM Interpretation: Performing Lab: Notes/Report: [facility] ,Lactate/Lactic Acid1.80.4-2.0 mmol/LPerforming Lab:see noteML - [facility] LBLACTATE or LACTIC ACID Reviewed date:03/22/2025 01:33:48 PM Interpretation: Performing Lab: Notes/Report: [facility] ,Lactate/Lactic Acid1.10.4-2.0 mmol/LPerforming Lab:see noteML - [facility] LBUS THYROID Reviewed date:03/22/2025 01:33:48 PM Interpretation: Performing Lab: Notes/Report: Source Facility: [facility]-[address], [place] [address] [address] Ultrasound Report Signed Patient: JONES PANIAGUA MR#: [id number] : 1980 Acct:[id number] Age/Sex: 44 / F ADM Date: 03/22/25 Loc: US Attending Dr: Mary Grace Barfield M.D. Ordering Physician: Mary Grace Barfield M.D. Date of Service: 03/22/25 Procedure(s): US thyroid Accession Number(s): [id number] cc: GAY ENCISO ; Mary Grace Barfield M.D. [address] [address] Patient Name: JONES PANIAGUA MRN: [id number] date: 1980 Sex: F Assigned Patient Location: Current Patient Location: [facility] Accession/Order Number: [id number] Exam Date: 03/22/2025 09:30 Report Date: 03/22/2025 [...] Nelson M.D. 03/22/2025 11:38 AM Dictation Location: [place] [address] Electronically authenticated by: [id number] Y Date: 03/22/2025 11:38 Dictated By: Simin Nelson M.D. Signed By: 03/22/25 1141 DD/ 1138 TD/TT: Wire Spiral Binder:XR hip MARK Reviewed date:03/22/2025 01:32:30 PM Interpretation: Performing Lab: Notes/Report: Source Facility: [place] [address] XRay Report Signed Patient: JONES PANIAGUA MR#: [id number] : 1980 Acct:[id number] Age/Sex: 44 / F ADM Date: 03/22/25 Loc: RAD Attending Dr: KIMBERLY FLORES Ordering Physician: KIMBERLY FLORES Date of Service: 03/22/25 Procedure(s): XR hip MARK Accession Number(s): [id number] cc: GAY ENCISO ; KIMBERLY FLORES [place] [address] Patient Name: JONES PANIAGUA MRN: [id number] date: 1980 Sex: F Assigned Patient Location: [facility] Current Patient Location: [facility] Accession/Order Number: [id number] Exam Date: 03/22/2025 09:50 Report Date: 03/22/2025 [...] soft tissue abnormalities are visualized. XR/XR hip AMRK IMPRESSION: NO ACUTE BONY FINDINGS. Impression dictated by: Simin Nelson M.D. 03/22/2025 12:39 PM Dictation Location: [place] [address] Electronically authenticated by: [id number] Y Date: 03/22/2025 12:39 Dictated By: Simin Nelson M.D. Signed By: 03/22/25 1241 DD/ 1239 TD/TT: Wire Spiral Binder:LACTATE or LACTIC ACID Reviewed date:03/27/2025 02:41:37 PM Interpretation: Performing Lab: Notes/Report: [facility] ,Lactate/Lactic Acid2.60.4-2.0 mmol/LRESULTS CALLED TO OLY SMITHPerforming Lab: see note - [facility] LBAerobic Culture Reviewed date:04/09/2025 10:39:49 AM Interpretation: Performing Lab: Notes/Report: [facility] ,Aerobic CultureSee Below For Report Aerobic Culture Aerobic CultureMixed skin osmany Aerobic Culture Aerobic CulturePerformed at: - [facility] [place] Aerobic Culture Aerobic [address] [place], [place] [id number] Aerobic Culture Aerobic CultureLab Director: Doyle Mendenhall PhD, Phone: [phone] Aerobic Culture Performing Lab:see note LC - [facility] LB SEE REPORT - Superintendent Plant Protection Id information not found for OBX-specific newscast producer legend Aerobic Culture Reviewed date:04/09/2025 10:39:49 AM Interpretation: Performing Lab: Notes/Report: [facility] ,Aerobic CultureSee Below For Report Aerobic Culture Aerobic CultureMixed skin osmany Aerobic Culture Aerobic CulturePerformed at: - [facility] [place] Aerobic Culture Aerobic [address] [place], [place] [id number] Aerobic Culture Aerobic CultureLab Director: Doyle Mendenhall PhD, Phone: [phone] Aerobic Culture Performing Lab:see note LC - [facility] LB SEE REPORT - Superintendent Plant Protection Id information not found for OBX-specific newscast producer legend LACTATE or LACTIC ACID Reviewed date:03/23/2025 09:19:37 AM Interpretation: Performing Lab: Notes/Report: [facility] ,Lactate/Lactic Acid2.70.4-2.0 mmol/LRESULTS CALLED TO allyson glez rn Performing Lab:see noteML - [facility] LBHCG Qualitative* Reviewed date:02/26/2025 09:22:15 AM Interpretation: Performing Lab: Notes/Report: [facility] ,HCG QualitativeNEGATIVENEGATIVEPerforming Lab:see note - [facility] LBPROF CHEM 8 (BAS METB) Reviewed date:02/26/2025 09:22:15 AM Interpretation: Performing Lab: Notes/Report: [facility] ,Izpxdf081575-979 mmol/LPotassium4.23.5-5.1 mmol/MFggnmudr79949-837 mmol/LCarbon Vyovhml19.121.0-32.0 mmol/LAnion Gap20.5Kmivuda42236-687 mg/dLBlood Urea Duwtmdwv24.07.0-18.0 mg/dLCreatinine0.810.55-1.02 mg/dLEstimated GFR ( Cindi>60>=60 mL/min/1.73m 2Estimated GFR (Non- Coretta>60>=60 mL/min/1.73m 2BUN Creatinine Ratio21.4Loocqer8.38.5-10.1 mg/dLPerforming Lab:see noteML - [facility] LBLACTATE or LACTIC ACID Reviewed date:02/26/2025 09:22:15 AM Interpretation: Performing Lab: Notes/Report: [facility] ,Lactate/Lactic Acid3.30.4-2.0 mmol/L RESULTS CALLED TO LISA Patel RN @BY Cresencio Odom MLT at 0037 Performing Lab:see noteML - [facility] LBCBC AUTO DIFF Reviewed date:02/26/2025 09:22:15 AM Interpretation: Performing Lab: Notes/Report: [facility] ,White Blood Count10.84.0-11.0 10 3/uLRed Blood Count4.394.20-5.40 10 6/uL Pvwsuzjuln42.312.0-16.0 g/pDGmnkxtquwi01.336.0-48.0 %Mean Corpuscular Hvxovf54.4 81.0-99.0 fLMean Corpuscular Ekbpuwhkvo31.626.7-34.0 pgMean Corpuscular HGB Conc 33.829.9-35.2 g/dLRed Cell Distribution Width14.011.0-15.0 %Platelet Kyopb453 150-450 10 3/uLMean Platelet Vqnnzi13.49.5-13.5 fLNeutrophils Percent Auto79.7 43.0-75.0 %Lymphocytes Percent Auto12.520.5-60.0 %Monocytes Percent Auto5.21.7- 12.0 %Eosinophils Percent Auto0.60.9-7.0 %Basophils Percent Auto0.60.2-2.0 % Immature Granulocytes Pct Auto1.40.0-0.5 %Neutrophils Absolute Auto8.61.4-6.5 10 3/uLLymphocytes Absolute Auto1.41.2-3.8 10 3/uLMonocytes Absolute Auto0.60.3-0.8 10 3/uLEosinophils Absolute Auto0.10.0-0.7 10 3/uLBasophils Absolute Auto0.10.0- 0.1 10 3/uLImmature Granulocytes Abs Auto0.150.00-0.03 10 3/uLPerforming Lab:[facility] LBH. pylori Stool Ag, EIA Reviewed date:10/26/2024 09:21:53 AM Interpretation: Performing Lab: Notes/Report: STOOL [facility] ,H. pylori Stool Ag, EIANegativeNegative Performed at: [address] [id number] Physician'S Aide: Doyle Mendenhall PhD, Phone: [phone] Performing Lab[facility] LBVITAMIN D 25 [place] Reviewed date:08/08/2024 02:48:03 PM Interpretation: Performing Lab: Notes/Report: [facility] ,Vitamin D27.7 <20 ng/mL Vit D deficient 20-<30 ng/mL Vit D insufficient 30-100 ng/mL Vit D sufficient >100 ng/mL Potential Toxicity Performing Lab:see [facility] LBGLYCOHEMOGLOBIN A1C Reviewed date:08/08/2024 02:48:03 PM Interpretation: Performing Lab: Notes/Report: [facility] ,Glycohemoglobin A1C6.74.5-6.2 % ADA RECOMMENDED LIMIT 4.0 - 6.0 ADA THERAPEUTIC TARGET < 7.0 ACTION SUGGESTED > 7.0 Estimated Average Ojkhovy105Qdornnphmg Lab:see [facility] LB US THYROID Reviewed date:08/27/2024 09:41:57 PM Interpretation: Performing Lab: Notes/Report: Source Facility: [facility]-[address] [place] [address] [place] [address] Ultrasound Report Signed Patient: JONES PANIAGUA MR#: [id number] : 1980 Acct:[id number] Age/Sex: 43 / F ADM Date: 08/24/24 Loc: US Attending Dr: Mary Grace Barfield M.D. Ordering Physician: Mary Grace Barfield M.D. Date of Service: 08/24/24 Procedure(s): US thyroid Accession Number(s): [id number] cc: GAY ENCISO ; Mary Grace Barfield M.D. [place] [id number] Patient Name: JONES PANIAGUA MRN: [id number] date: 1980 Sex: F Assigned Patient Location: US Current Patient Location: US Accession/Order Number: [id number] Exam Date: 08/24/2024 09:09 Report Date: 08/24/2024 [...] this was thought to be cystic. The prosthetic dentist today considered it solid and it was given TI-RADS 4 classification. No internal color flow is shown. Size has not significantly changed when measuring in a comparable manner. No other nodularity is seen. US/US thyroid IMPRESSION: SIMILAR SMALL LEFT THYROID NODULE. FOLLOW-UP IN ONE YEAR IS SUGGESTED. Impression dictated by: Simin Nelson M.D.08/24/2024 9:22 AM Dictation Location: [place] [address] Electronically authenticated by: [id number] Y Date: 08/24/2024 09:22 Dictated By: Simin Nelson M.D. Signed By: 08/24/24923 DD/ 1 TD/TT: Wire Spiral Binder:LACTATE or LACTIC ACID Reviewed date:03/06/2025 08:53:27 AM Interpretation: Performing Lab: Notes/Report: N [facility] ,Lactate/Lactic Acid2.20.4-2.0 mmol/LRESULTS CALLED TO MONICA MORA LPN at 1050 Performing Lab:see noteML - [facility] LBCampylobacter Culture Reviewed date:10/30/2024 12:57:59 PM Interpretation: Performing Lab: Notes/Report: [facility] ,Campylobacter CultureSee Below For Report Campylobacter Culture No Campylobacter species isolated. Performing Lab:see noteLC - [facility] LB Reason For Referral Diagnosis 1 Elevated lactic acid level (R79.89) Diagnosis 2 Pilonidal abscess (L 05.01) Referral Organization [facility] Referring Provider First Name Gay Referring Provider Last Name Britt Referring Provider Speciality Family [facility] marko Referred Provider Jazmyn Key Referred Provider [facility] Priority Routine Medications Medication SIG (Take, [...] Duration: 28 days5ActiveCyanocobalamin 1000 MCG/ML1 mL Injection lhmcupl21/06/2024ActiveTriamcinolone Acetonide 0.025 % APPLY TO AFFECTED AREA TWICE DAILY NEEDED FOR 30 DAYS External; Duration: 30 DaysActiveCymbalta 20 MG1 capsule Orally Once a day; Duration: 30 days02/01/2024 ActiveMetoprolol Tartrate 100 MG1 tablet Orally 3 times a day; Duration: 90 days ActiveBlood Glucose Monitor System w/Deviceas iyeymsjc42/12/2025Active Fluocinonide 0.05 %1 application Externally Once a day- as needed; Duration: 30 daysActiveVitamin D (Ergocalciferol) 1.25 MG (04755 UT)1 capsule Orally once weekly; Duration: 28 daysActiveNizatidine 150 MG1 capsule Orally Once a day; Duration: 30 days5ActiveMounjaro 2.5 MG/0.5MLas directed Subcutaneous weekly; Duration: 28 dayscall for next dose5ActivePantoprazole Sodium 40 MG1 tablet 1/2 to 1 hour before morning meal Orally Once a day; Duration: 90 days5ActiveBenlysta 200 MG/JV673da Subcutaneous once weeklyActive predniSONE 10 MG1 tablet Orally once daily; Duration: 30 daysActiveLancets - daily; Duration: 90 days5ActiveBlood Glucose Test -as directed In Vitro daily; Duration: days5ActiveFolic AcidActiveVoltaren 1 %as directed Externally as iawqsf324ActiveHydroxychloroquine Sulfate 400 MG1 capsule Orally once daily; Duration: 30 daysActiveNystatin 495898 UNIT/ML5 ml Mouth/Throat Four times a day; [...] alcohol in the p ast year? No Gobdkd2EprygqhkxaedviJqvjbmlsNCZVQ-C (Standard) Question Answer Notes Did you have a drink containing alcohol in the p ast year? No Qxqrcb0VaevpdolapsdeuQokefujt Problems Problem Type SNOMED Code ICD Code Onset Dates Problem Status W/U Status Risk Notes Problem Chronic fatigue syndrome (46996948) Chron ic fatigue (780.79) ActiveconfirmedProblemNon-toxic single thyroid nodule (202998912)Nontoxic single thyroid nodule (E04.1)ActiveconfirmedProblemSleep apnea (27696065)Sleep apnea, unspecified (G47.30)ActiveconfirmedProblemGeneralized enlarged lymph nodes (043150335)Generalized enlarged lymph nodes (R59.1)ActiveconfirmedProblem Hypertension (06087709)Hypertension (I10)ActiveconfirmedProblemGastroesophageal reflux disease (105541996)GERD (gastroesophageal reflux disease) (K21.9)Active confirmedProblemAnxiety (64272198)Anxiety (F41.9)ActiveconfirmedProblemType 2 diabetes mellitus (67051744)Type 2 diabetes mellitus (E11.9)Activeconfirmed ProblemLeukocytosis (342512845)Elevated WBC count (D72.829)Activeconfirmed ProblemThyroid nodule (045487161)Thyroid nodule (E04.1)ActiveconfirmedProblem Fatty liver (962101387)Fatty liver (K76.0)ActiveconfirmedProblemLupus (126315184)Lupus (M32.9)ActiveconfirmedProblemAbdominal pressure (621588526) Abdominal pressure (R10.9)ActiveconfirmedProblemRaynaud's disease (868857402) Raynauds phenomenon (I73.00)ActiveconfirmedProblemPure hypercholesterolemia (142325766)Pure hypercholesterolemia, unspecified (E78.00)ActiveconfirmedProblem Prediabetes (304677919)Pre-diabetes (R73.03)Activeconfirmed Vital Signs Blood pressure diastolic 78 mm Hg 03/08/2025 Pcfuhj71 in03/08/2025lood pressure fchrcacb009 mm Hg03/08/20254522Ztcqgs783.8 lbs 03/08/2025BMI44.91 kg/m203/08/2025 Procedures Procedure Date Ordered Date Performed Result Body Sit e *CARDIO Stress Test - Lexiscan Nuclear 5 N/A Encounters Encounter Location Date Provider Diagnosis [facility] [address] [place] [address] 03/08/2025 Gay Britt Elevated lactic acid level R79.89 ; Pilonidal abscess L05.01 and Type 2 diabetes mellitus E11.9 [facility] [address] [place] [facility] [address] 07/27/2024 Gay Enciso GERD (gastroesophage al reflux disease) K21.9 and Anxiety F41.9 [facility] [address] [place] [facility] [address] 08/11/2024 Víctor Hoy Generalized enlarged lymph nodes R59.1 and Elevated WBC count D72.829 [facility] [address] [place] [facility] [place] [address] 06/16/2024 Gay Enciso Hypertension I10 [facility] [address] [place] [facility] [address] 07/04/2024 Gay Enciso [facility] [place] [facility] [place] [address] 07/27/2024Pafrancesco [facility] [place] [facility] [place] [place] [address]/Gay EncisoPre-diabetes R73.03[facility] [place] [facility] [place] [address]/07/2024Pafrancesco [facility] [place] [facility] [address]/03/2025Pamela CramerAnxiety F41.9[facility] [address] [place] [facility] [place] [place] [address]/Pamela CramerAnxiety F41.9 and Diarrhea R19.7[facility] [place] [facility] [address]/Pamelbryce [facility] [place] [facility] [address]/Pafrancesco [facility] [place] [facility] [address]/08/2024Gay Enciso [facility] [place] [facility] [address] 10/26/2024[facility] [place] [address]/01/2025Pamela CramerThrush B37.0[facility] [address] [facility] [place] [address]/Pamela AlvaromerKit [facility] [facility] [place] [address]/ Víctor HoyThrush B37.0 and Anxiety F41.9[facility] [facility] [place] [address]/Pamela CramerAnxiety F41.9[facility] [facility] [place] [address]/ Gay [facility]isoKit [facility] [facility] [place] [address]/Pamela CramerJaw pain R68.84[facility] [address] [facility] [place] [address]/07/2024Pamela AlvaromerPre-diabetes R73.03 and Encounter for long-term current use of medication Z79.899[facility] [facility] [place] [address]/10/2024 [facility] [place] [address]/11/2024Pamela CramerElevated lactic acid level R79.89[facility] [place] [address]/11/2024Pamela CramerElevated lactic acid level R79.89[facility] [facility] [place] [address]/01/2025Pamela CramerKit [facility] [facility] [place] [address]/[facility] [facility] [place] [address]/[facility] [facility] [place] [address]/[facility] [facility] [place] [address]/[facility] [facility] [place] [address] 03/08/2025[facility] hospital[facility] [facility] [place] [address]/[facility] [address] [facility] [place] [address]/Gay [facility] [facility] [place] [address]/ Gay [facility]iso[facility] [facility] [place] [facility] [place] [address]/08/2024Pafrancesco [facility] [facility] [place] [address]/Doug HoyType 2 diabetes mellitus E11.9 [facility] [facility] [place] [address] 04/26/2025Pajessea [facility] [place], [place] [address]/02/2025Pamela [facility] [facility] [place] [address]/04/2025Pamela CramerSOB (shortness of breath) on exertion R06.02[facility] [facility] [place] [address]/06/2024Pamela CramerDiarrhea R19.7 ; GERD (gastroesophageal reflux disease) K21.9 and Generalized enlarged lymph nodes R59.1B[address] [address]/Pamela CramerRib pain on right side R07.81 ; Jaw pain R68.84 and Generalized enlarged lymph nodes R59.1B[address] [address] 02/26/2025Pamela CramerElevated lactic acid level R79.89 and Type 2 diabetes mellitus E11.9B[address] [address]/Pamela CramerPilonidal cyst with abscess L05.[address] [address]/04/2025 Gay CramerGERD (gastroesophageal reflux disease) K21.9 ; Type 2 diabetes mellitus E11.9 ; SOB (shortness of breath) on exertion R06.02 and Hypertension I[address] [address] 07/04/2024Pamela CramerPre-diabetes R73.03 and Thrush B37.0 Assessments Encounter Date Diagnosis (ICD Code) Assessment Notes Treatment Notes Treatment Clinical Notes Section Notes 07/04/2024 Pre-diabetes (ICD-10 - R73.03) 07/04/2024Thrush (ICD-10 - B37.0) requesting referral [facility] [...] L05.01)03/05/2025Pilonidal cyst with abscess (ICD-10 - L05.01) shayan Blum, if needs ID referral Jennifer Shultz [...] test?03/08/2025Type 2 diabetes mellitus (ICD-10 - E11.9)restart /02/2025GERD (gastroesophageal reflux disease) (ICD-10 - K21.9) 10/23/2024Generalized enlarged lymph nodes (ICD-10 - R59.1)05/04/2025 Hypertension (ICD-10 - I10) Plan Of Treatment Pending Test Test Name Order Date CMP (COMPLETE METABOLIC PANEL) CMP (COMPLETE METABOLIC PANEL) UA (URINALYSIS, COMPLETE) 03/08/2025 CULTURE, STOOL 10/23/2024 HEMOGLOBIN A1C (GLYCO) 07/27/2024 HEMOGLOBIN A1C (GLYCO) 06/24/2023 IRON, TOTAL 07/27/2024 LIPID PANEL (CHOL/TRIG/HDL/LDL) 07/28/19 25 CBC WITH DIFF (EXP 03/2025) 07/27/2024 CBC WITH DIFF (EXP 03/2025) 01/03/2024 CBC WITH DIFF (EXP 03/2025) 06/24/2023 CBC WITH DIFF (EXP 03/2025) 05/15/2024 UA (REFLEX URINALYSIS TO CULTURE) 2023 [...] Date [employer] [place] [employer] [address] [place] [address] [id number] Ro Paniaguaelf - patient is the insured Medical (General) History Medical History History ICD Code Chronic fatigue 780.79 Anxiety F41.9 Cervical lymphadenopathy R59.0 GERD (gastroesophageal reflux disease) K 21.9 Hypercholesterolemia E78.00 Hyperlipidemia E78.5 Lupus M32.9 Tachycardia R00.0 Prediabetes R73.09 Hypertension I10 Surgical History Surgery Date(Month/Year) lymph node biopsy 2020 Pynonidal Cyst 02/2025
--- OUTSIDE RECORDS SUMMARY | 2025-05-19 06:06 | XMS_ITS | CCD ---
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 Machinist Name Role Phone VICTOR MANUEL GUZMAN Referring Unavailable Unavailable Primary Care Provider UnavailJONAS Stuart Referring Unavailable Britt CLOTH DYEING RANGE TENDER.TRUE, Gay Primary Care Provider Mirela Baer Unavailable Britt CLOTH DYEING RANGE TENDER.SINGLE POINTED OPERATOR, Gay Primary Care Provider Manuel Ferris MD [...] Admitting Unavailable BUFFY, DR DIETZ Consulting Unavailable BLANK, [...] Charles Nicole DO Primary Care Provider Mitali THORPE-TREU, Michelle L Unavailable Unavailable Primary Care Provider UnavailAurora Carney MD Unavailable Britt TABOR, Gay S Primary Care Provider Manuel Ferris MD Primary Care Provider [phone] MD Adolfo Kang Attending Provider [phone] CARISSA De La Torre-Ananya Gay Natalie Primary Care Provider [phone] Charles Nicole MD Primary Care Provider CALOS ARCE Attending Unavailable Unavailable Primary Care Provider UnavailManuel Calixto MD Unavailable Britt FLAT SHEET MAKER-C, Gay Natalie Primary Care Provider [phone] Jorge Luis LEE, Adolfo S Attending Provider [...] BRITT, GAY S Primary Care Unavailable Britt FLAT SHEET MAKER-C, Gay Natalie Primary Care Provider Jorge Luis LEE, Adolfo Jane Attending Provider [phone] Britt FLAT SHEET MAKER-C, Gay Natalie Primary Care Provider [phone] Jorge Luis LEE, Adolfo Jane Attending Provider [phone] Melquiades FLAT SHEET MAKER, Margie Attending Provider Britt FLAT SHEET MAKER-C, Gay Natalie Primary Care Provider Jorge Luis LEE, Adolfo Jane Attending Provider [phone] Bandar Portillo APRN Attending Provider Britt FLAT SHEET MAKER-C, Gay Natalie Primary Care Provider Adolfo Kang MD Attending Provider Janes Barfield MD Attending Provider [phone] Adolfo Kang MD Other Provider Britt FLAT SHEET MAKER-C, Gay Natalie Primary Care Provider Adolfo Kang MD Attending Provider Garrison LEE, Mathew Christian Attending Provider [phone] Britt FLAT SHEET MAKER-C, Gay Natalie Primary Care Provider Melquiades FLAT SHEET MAKER, Margie Attending Provider Terence Blum MD Attending Provider [phone] Jose Perez DO Attending Provider Britt FLAT SHEET MAKER-C, Gay Natalie Attending Provider Britt FLAT SHEET MAKER-C, Gay Natalie Primary Care Provider [phone] Bandar Portillo APRN Attending Provider NON STAFF [...] Britt BISWAS, Gay S Primary Care Provider [phone] GAY DE LA TORRE Primary Care Unavailable [...] Primary Care Unavailable ABHYANKAR, VERA Referring Unavailable EDVEN, VAIBHAV Attending Unavailable HOY, MANUEL M Primary [...] OnsetReaction(s) FacilityDihydrofolate Reductase Inhibitors (antibiotic) (3 sources)TrimethoprimDrug Uajzcrt98-16-9799Myrik: See CommentsScci Hospital Lima Doxycycline (3 sources)DoxycyclineDrug Pdnhpyg70-73-3146Neljv: See [facility] Latex (3 sources)LatexSubstance Xfowccy77-81-4109NkqiYcbalaxyi ClinicLincosamides (antibiotic) (3 sources)ClindamycinDrug Wggrwio71-64-7871PgbbiayZoazdbnnh ClinicOpioid Agonists (3 sources)CodeineDrug Ommepby78-22-2262Gergh: See CommentsScci Hospital Lima Sulfamethoxazole / Trimethoprim (4 sources)Sulfamethoxazole / TrimethoprimDrug Szhqkfd27-43-7330SejnszkxGepqd HealthSulfonamides (antibiotic) (3 sources)SulfamethoxazoleDrug Bgsdtwn92-94-5455Bhccw: See [facility] Work Phone: (20 sources)Codeine; Translations: [CODEINE]Drug Omemezx92-72-5503Fppdn: See Comments, Shortness of BreathS[facility] (20 sources)Latex; Translations: [LATEX]Drug Mgsqgii28-26-3915OmblOrtvmylmq Clinic (20 sources)Sulfamethoxazole; Translations: [SULFAMETHOXAZOLE]Drug Allergy 51-05-9807BW Upset, Other: See CommentsScci Hospital Lima (20 sources)Clindamycin; Translations: [CLINDAMYCIN]Drug Hdszdnx87-79-9925 UnknownScci Hospital Lima (4 sources)Sulfamethoxazole / TrimethoprimDrug AllergylyMonroe Carell [facility]. [facility] Simfinit Other (20 sources)Doxycycline; Translations: [DOXYCYCLINE]Drug Njfnngv21-43-6505Mdrks: See Comments, Other, Unknown, Other (See Comments)[facility] (20 sources)Sulfamethoxazole / Trimethoprim; Translations: [SULFAMETHOXAZOLE-TRIMETHOPRIM]Drug Sfbgkbi28-82-9869Nrdhvhec, Other, GI Disturbance, Other (See Comments), DyspepsiaScci Hospital Lima (20 sources)Trimethoprim; Translations: [TRIMETHOPRIM]Drug Kaynkau43-07-6687 Other: See CommentsScci Hospital Lima (1 source)LatexDrug allergy (disorder)78-06-0243Lcp [facility] Repository (1 source)Sulfamethoxazole / TrimethoprimDrug Seewjjm96-65-2020CdyBlanchard [facility] Rep[facility] (20 sources)SulfamethoxazoleAllergy to -44-4268[facility] (20 sources)LatexPropensity to adverse drdumgyzv89-25-5544KqgeXYNP Healthcare (14 sources)Omeprazole; Translations: [OMEPRAZOLE]Drug Aowstzd87-00-5547 [facility] Repository (14 sources)pantoprazole; Translations: [PANTOPRAZOLE]Drug Vwwejan24-72-2348 [facility] Repository (1 source)ClindamycinDrug Eycuvtx79-27-2067VqgrmyiucUniversity [facility]als [facility] Rep[facility] (1 source)SulfamethoxazoleDrug Kngwobf14-03-0470TpmqtrctuUniversity Hospitals St. [facility] Repository (1 source)TrimethoprimDrug Bzajvkg60-65-2542NrmkjphxnUniversity Hospitals St. [facility] Repository (1 source)Sulfonamides (Antibiotic)Propensity to adverse reactions to drug 60-76-0599NrjderjkBcpwsOhioHealth O'[facility]len[facility] Medications Current Medications MedicationDrug Class(es)DatesSig (Normalized)Sig (Original)acetaminophen 500 mg oral tablet (20 sources)Start: 38-49-2990okpi 2 tablets by mouth every six hours as needed for painAcetaminophen (Acetaminophen Extra Strength) 500 mg tablet Active 1000 MG PO Every 6 hours as needed for pain January 31, 2025 12:00am Complies with drug therapyStart: 01-24-2025 End: 58-50-8944vwks 1 dose by mouth once, then take 4000 mg by mouth once daily 650 mg, ORAL, ONCE, 1 dose, On Wed01/24/25 at 0930, No more than 4000 mg of acetaminophen should be given per day (FROM ALL SOURCES)Start: 01-11-2025 End: 87-08-7150yqzb 1 dose by mouth once1,000 mg, ORAL, ONCE, 1 dose, On Wed01/11/25 at 1430Start: 12-14-2024 End: 91-01-2001tqze 1 dose by mouth once1,000 mg, ORAL, ONCE, 1 dose, On Wed12/14/24 at 1430Start: 11-29-2024 End: 57-27-8091jgpd 1 dose by mouth once, then take 4000 mg by mouth once daily 650 mg, ORAL, ONCE, 1 dose, On Wed11/29/24 at 1000, No more than 4000 mg of acetaminophen should be given per day (FROM ALL SOURCES)Start: 11-16-2024 End: 96-79-1913fhlo 1 dose by mouth once1,000 mg, ORAL, ONCE, 1 dose, On Wed11/16/24 at 1400Start: 10-31-2024 End: 25-10-5737doem 1 dose by mouth once, then take 4000 mg by mouth once daily 650 mg, ORAL, ONCE, 1 dose, On Wed10/31/24 at 1000, No more than 4000 mg of acetaminophen should begiven per day (FROM ALL SOURCES)Start: 10-19-2024 End: 75-76-1100fztj 1 dose by mouth once1,000 mg, ORAL, ONCE, 1 dose, On Wed10/19/24 at 1430Start: 2024 End: 10-63-8270masd 1 dose by mouth once1,000 mg, ORAL, ONCE, 1 dose, On Wed10/04/24 at 1430Start: 10-02-2024 End: 90-50-6130cpwr 1 dose by mouth once, then take 4000 mg by mouth once daily 650 mg, ORAL, ONCE, 1 dose, On Wed10/02/24 at 0900, No more than 4000 mg of acetaminophen should begiven per day (FROM ALL SOURCES)Start: 09-18-2024 End: 63-31-9680bedu 1 dose by mouth once1,000 mg, ORAL, ONCE, 1 dose, On Wed09/18/24 at 1300Start: 09-06-2024 End: 25-84-4248pxeq 1 dose by mouth once, then take 4000 mg by mouth once daily 650 mg, ORAL, ONCE, 1 dose, On Wed09/06/24 at 0930, No more than 4000 mg of acetaminophen should begiven per day (FROM ALL SOURCES)Start: 08-08-2024 End: 64-14-8126mmij 1 dose by mouth once, then take 4000 mg by mouth once daily 650 mg, ORAL, ONCE, 1 dose, On Wed08/08/24 at 0930, No more than 4000 mg of acetaminophen should begiven per day (FROM ALL SOURCES)Start: 07-11-2024 End: 44-86-2786ueig 1 dose by mouth once, then take 4000 mg by mouth once daily 650 mg, ORAL, ONCE, 1 dose, On Wed07/11/24 at 0900, No more than 4000 mg of acetaminophen should begiven per day (FROM ALL SOURCES)Start: 06-13-2024 End: 53-99-8429bwil 1 dose by mouth once, then take 4000 mg by mouth once daily 650 mg, ORAL, ONCE, 1 dose, On Wed06/13/24 at 1000, No more than 4000 mg of acetaminophen should begiven per day (FROM ALL SOURCES)Start: 05-19-2024 End: 95-46-0567vglr 1 dose by mouth once, then take [...] 5 mg oral tablet (2 sources)Opioid AgonistStart: 77-32-3182xufz 1 tablet by mouth every six hours as neededhydroCODone-acetaminophen 5-325 MG tablet Take 1 tablet by mouth every 6 hours as needed. 02/26/2025 ActiveStart: 16-13-9328cjwr 1 tablet by mouth every six hours as neededhydroCODone-acetaminophen 7.5-325 MG tablet Take 1 tablet by mouth every 6 hours as needed. 01/08/2025 ActiveALPRAZolam 0.25 mg oral tablet (20 sources)BenzodiazepineStart: 06-24-2023 End: 33-61-3312llrx 1 tablet by mouth once dailyALPRAZolam 0.25 MG tablet Take 1 tablet by mouth daily. 04/28/2024 Activeamoxicillin 875 mg oral tablet (2 sources)Penicillin-class AntibacterialStart: 71-55-6882mtsq 1 tablet by mouth every twelve hoursAmoxicillin [...] tablet (20 sources)gamma-Aminobutyric Acid-ergic AgonistStart: 02-09-2024 End: 22-35-5092itkn 1 tablet by mouth at bedtimebaclofen (Lioresal) 5 MG tablet Indications: Lumbosacral radiculopathy at L5 , Degenerative disc disease, lumbar , Cervical radiculopathy at C5 TAKE 1 TABLET BY MOUTH IN THE MORNING, EVENING AND BEFORE BEDTIME 270 tablet 1 03/02/2024 02/28/2025 Discontinued (Therapy completed)cephalexin 500 mg oral capsule (17 sources)Cephalosporin AntibacterialStart: 02-27-2025 End: 42-07-5042wqsbmgcfgx (Keflex) 500 MG capsule 02/27/2025 ActiveStart: 06-15-2024 End: 26-12-1346rpsz 1 capsule by mouth in the morningcephalexin (Keflex) 500 MG capsule Indications: Cyst, breast, sebaceous, left Take 1 capsule (500 mg) by mouth in the morning and 1 capsule (500 mg) before bedtime. Do all this for 7 days. 14 autvxzs3206/15/2024 06/22/2024 ActiveStart: 34-18-5692nkzeuihcux (Keflex) 500 MG capsule Indications: Postoperative stitch abscess Take 1 tablet twice a day x 7 days 14 capsule 0 01/07/2023 ActiveKeflex Activecetirizine hydrochloride 10 mg oral tablet (4 sources)Histamine-1 Receptor Antagonisttake 1 tablet by mouth once daily Cetirizine 10 MG tablet Take 1 tablet by mouth daily. Active End: 75-45-4045Idqxktinym (ZYRTEC) 10 mg cap Take by mouth. 0 02/25/2022 Discontinued (Course of therapy completed)Comment on above:Take by mouth. chlorhexidine gluconate 40 mg/ml medicated liquid soap (20 sources)Start: 29-71-6273Ogogvftmbpdhs Gluconate (Hibiclens) 4 % solution Indications: Hidradenitis suppurativa Use every day in shower from the neck down to affected areas. 532 mL 11 07/25/2024 ActiveStart: 16-16-8799Cjcxufjkhfktg Gluconate 4 % Solution Apply 1 Application topically daily as needed for Other. 07/25/2024 ActiveStart: 11-01-2023 End: 35-98-6067Ztmmeaomrmhie Gluconate (Hibiclens) 4 % solution Indications: Hidradenitis suppurativa Apply 1 Application topically Daily LATHER ONTO AFFECTED AREAS ON THE BODY AND RINSE FROM THE NECK DOWN 2 TIMES A WEEK AVOIDING THE FACE. 30 day supply 236 mL 11 03/17/2024 04/16/2024 ActiveStart: 07-15-2023 End: 95-13-6355vnoskwxvafqlk (Hibiclens) 4 % external liquid Indications: Hidradenitis suppurativa Lather onto affected areas on the body and rinse from the neck down, 2 times a week avoiding the face, 30 day supply 118 mL 11 07/15/2023 03/16/2024 Discontinuedclindamycin 10 mg/ml topical lotion (20 sources)Lincosamide AntibacterialStart: 33-80-2443wfhogmbqdyn (Cleocin T) 1 % lotion Indications: Hidradenitis suppurativa Apply thin later to affected areas on the thighs, once daily, 30 day supply 60 mL 11 07/25/2024 ActiveStart: 06-23-2022 End: 92-04-5761ordvrmdejta (Clindagel) 1 % gel Indications: Hidradenitis suppurativa APPLY TO AFFECTED AREA DAILY 75 mL 11 10/06/2023 06/06/2024 Discontinuedclobetasol propionate 0.5 mg/ml medicated shampoo (20 sources)CorticosteroidStart: 38-11-6782Qgctdhjges Propionate 0.05 % Shampoo Apply 1 Application topically 3 times weekly. APPLY TO SCALP IN SHOWER 3 TO 4 TIMES A WEEK 07/25/2024 ActiveStart: 96-85-5394Qyuylfmtvs 0.05 % shampoo Active 1 APPLIC TOPICAL As Directed October 20, 2023 12:00am Complies with drug therapy Start: 89-60-3241Gittphbmns Active TOPICAL October 20, 2023 12:00amStart: 10-23-2022 End: 69-61-6227Gddbxsvsma Propionate 0.05 % shampoo Indications: Other seborrheic dermatitis 1 application to the scalp in the shower topically 3-4 times a week 236 mL 11 07/25/2024 ActiveclonazePAM 0.5 mg oral tablet (20 sources)BenzodiazepineStart: 67-32-0443htkc 1 tablet by mouth once daily as neededKlonoPIN 0.5 MG tablet 1 tablet Orally Once a day prn for 30 days 09/01/2024 Activeclotrimazole 10 mg oral lozenge (11 sources)Azole AntifungalStart: 72-72-9489jipuxxzktpnt (MYCELEX) 10 mg christel USE 1 CHRISTEL WHILE ON IMMUNOSUPPRESSIVE MEDICINE BY MOUTH/THROAT 3 TIMES A DAY 10/23/2024 ActiveStart: 62-66-8050benjtcwtchcx (MYCELEX) 10 mg christel Dissolve 1 Christel in the mouth in the morning and 1 Christel at noon and 1 Christel in the evening and 1 Christel before bedtime. 04/05/2024 ActiveCPAP/BIPAP/OTHER (20 sources)Start: 05-05-2022 End: 27-69-2041QIMM/BIPAP/OTHER Indications: JOSE RAFAEL (obstructive sleep apnea) Type .CPAPSettings into a note to see current settings/supplies/DME information. 1 Each 05/05/2022 09/19/2049 ActiveStart: 05-05-2022 End: 85-75-6371PTPD/BIPAP/OTHER Indications: JOSE RAFAEL (obstructive sleep apnea) Type .CPAPSettings into a note to see current settings/supplies/DME information. 1 Each 0 05/05/2022 09/19/2049 ActiveStart: 04-13-2022 End: 16-50-1232BDVR/BIPAP/OTHER Indications: JOSE RAFAEL (obstructive sleep apnea) Type .CPAPSettings into a note to see current settings/supplies/DME information. 1 Each 0 04/13/2022 04/26/2023 Discontinued (Duplicate Entry)Start: 04-13-2022 End: 20-10-6146GAPS/BIPAP/OTHER Indications: JOSE RAFAEL (obstructive sleep apnea) Type .CPAPSettings into a note to see current settings/supplies/DME information. 1 Each 0 04/13/2022 08/28/2049 ActiveComment on above:Type .CPAPSettings into a note to see current settings/supplies/DME information.diclofenac sodium 0.01 mg/mg topical gel (20 sources)Nonsteroidal Anti-inflammatory DrugStart: 58-97-2231Qbgqwdtylf sodium 1 % Gel gel Apply 2 g topically 4 times daily. 08/14/2024 ActiveStart: 78-78-1902ougpaldflb sodium 1 % gel 02/01/2024 ActiveStart: 66-79-8951faipbrrjxw sodium (VOLTAREN ARTHRITIS PAIN) 1 % gel Apply 2 g topically 4 (four) times a day as needed. 02/01/2024 GthisntmiinrxefqWEWCW-horixl-izzolokad (BMX 1:1:1) 1:1:1 liqd (20 sources)Start: 95-44-7617osft 5 mL by mouth every six hours as needed xxzxxpwxqvJFJCA-otehca-kmvixwfwx (BMX 1:1:1) 1:1:1 liqd Take 5 mL by mouth every 6 hours as needed.500 mL 1 07/12/2024 Active0.5 ml dulaglutide 3 mg/ml auto-injector (20 sources)GLP-1 Receptor AgonistStart: 15-17-6565Zvndwnpru 1.5 MG/0.5ML Solution Auto-injector injection Inject 0.5 mL under the skin every 7 days. 0 01/23/2025 ActiveStart: 08-17-2024 End: 90-65-9445Rbdmymahd 1.5 MG/0.5ML solution auto-injector INJECT SUBCUTANEOUSLY ONCE A WEEK DIRECTED 08/17/2024 02/28/2025 Discontinued (Therapy completed)Start: 34-85-2088wdbjjg 0.75 mg by subcutaneous injection onceTRULICITY 0.75 mg/0.5 mL pen injector Inject 0.75 mg subcutaneously one time a week. Per PCP 07/29/2024 ActiveStart: 11-16-2022 End: 02-47-6722ssxcos 1.5 mg by subcutaneous injection every weekdulaglutide (TRULICITY) 1.5 mg/0.5 mL pen injector Indications: Obesity, Class II, BMI 35- 39.9 , Prediabetes Inject 1.5 mg subcutaneously one time a week. 2 mL 0 11/16/2022 ActiveStart: 10-16-2022 End: 54-65-6581evwbgl 0.75 mg by subcutaneous injection every weekdulaglutide (TRULICITY) 0.75 mg/0.5 mL pen injector Indications: Obesity, Class III, BMI 40- 49.9 (morbid obesity) (HCC) , Pre-diabetes Inject 0.75 mg subcutaneously one time a week. 2 mL 0 10/16/2022ctiveStart: 09-07-2022 End: 10-61-4365yshaob 0.75 mg by subcutaneous injection every weekdulaglutide [...] capsule (20 sources)Serotonin and Norepinephrine Reuptake InhibitorStart: 47-36-7722njrv 1 capsule by mouth once dailyDULoxetine [address] Particles capsule DR Take 1 capsule by mouth daily. 02/22/2025 ActiveStart: 69-63-8935jrdl 1 capsule by mouth once dailyDuloxetine 20 mg capsule,delayed release(DR/EC) Active 20 MG PO Daily December 12, 2024 12:00am Complies with drug therapyStart: 02-01-2024 End: 91-97-8465zumg 1 capsule by mouth once dailyDULoxetine (Cymbalta) [address] capsule Take 20 mg by mouth Daily 02/01/2024 03/16/2024 DiscontinuedStart: 10-29-2022 End: 47-33-9223eybi 1 capsule by mouth once dailyDULoxetine (CYMBALTA) 20 mg capsule Indications: Depression, recurrent (HCC) , Chronic pain syndrome Take 1 capsule by mouth once daily. 30 capsule 2 10/29/2022 04/26/2023 Discontinued (Course of therapy completed)Start: 03-09-2022 End: 07-63-6661injp 1 capsule by mouth once dailyDULoxetine (CYMBALTA) 20 mg capsule Take 1 capsule by mouth once daily. 30 capsule 2 03/09/2022 Active Comment on above:Take 1 capsule by mouth once daily.ergocalciferol 1.25 mg oral capsule (20 sources)Provitamin D2 CompoundStart: 01-90-5320Bwffihsgoyzqhe (Vitamin D2) 1,250 mcg (50,000 unit) capsule Active 34198 UNIT PO 3 Times a week November 13, 2024 11:23am Complies with drug therapyStart: 04-02-2024 End: 09-83-2687vwdkzqlcxomgxl 50,000 unit capsule (VITAMIN D2, DRISDOL) Indications: Vitamin D deficiency Take 1cap by mouth twice a week x 10weeks, then once a week with food. 24 capsule 1 04/02/2024 07/09/2024 Discontinued Start: 10-20-2023 End: 56-00-9426wkud 1 capsule by mouth every weekErgocalciferol 1.25 MG (35244 UT) capsule Take 1 capsule by mouth once a week. 10/06/2024 ActiveStart: 10-31-2022 End: 41-59-7447cgbr 1 capsule by mouth every weekergocalciferol (DRISDOL) 1,250 mcg (50,000 unit) capsule Take 1 capsule (50,000 Units total) by mouth once a week. 10/20/2023 ActiveStart: 88-73-8829qjwjmgsnpvstti 50,000 unit capsule (VITAMIN D2, DRISDOL) Indications: Vitamin D deficiency (take bymouth with food 3times a week, ONE CAPSULE ON Mondays, Fridays) FOR A TOTAL OF 8 WEEKS, then once aweek thereafter. 28 capsule 1 05/18/2022 ActiveStart: 10-26-2021 End: 53-67-8537jmhdnwqopinzqk 50,000 unit capsule (VITAMIN D2, DRISDOL) Indications: Vitamin D deficiency (take bymouth with food 2times a week, ONE CAPSULE ON Mondays, Fridays) FOR A TOTAL OF 8 WEEKS, then once aweek thereafter. 20 capsule 1 03/05/2022 ActiveStart: 55-81-0267ifmmjjoywwvetx 50,000 unit capsule (VITAMIN D2, DRISDOL) Indications: Vitamin D deficiency (take bymouth with food 3times a week, ONE CAPSULE ON Mondays, Wed, Fridays) FOR A TOTAL OF 8 WEEKS. 24 capsule 0 03/06/2021 Activetake 1 capsule by mouth every week ergocalciferol (Vitamin D2) 1.25 MG (98442 UT) capsule Take 50,000 Units by mouth [...] / Ferrous fumarate / Norethindrone (20 sources)EstrogenStart: 33-79-5268lwqr 1 tablet by mouth once dailyLo Loestrin Fe 1 MG-10 MCG / 10 MCG tablet Take 1 tablet by mouth daily. 11/17/2024 ActiveStart: 43-33-4935qkty 1 tablet by mouth once dailyLO LOESTRIN FE 1 mg-10 mcg (24)/10 mcg (2) Take 1 tablet by mouth once daily. 11/17/2024 ActiveStart: 03-23-2024 End: 13-40-3441akbb 1 tablet by mouth once dailynorethindrone-ethinyl estradiol- iron (Lo Loestrin Fe) 1 MG-10 MCG / 10 MCG tablet Indications: Menorrhagia with regular cycle Take 1 tablet by mouth Daily Take 1 tablet by mouth daily 28 tablet 11 03/23/2024 02/28/2025 Discontinued (Therapy completed)Start: 03-23-2024 End: 81-44-3758rgtn 1 tablet by mouth once dailynorethindrone-ethinyl estradiol- iron (Lo Loestrin Fe) 1 MG-10 MCG / 10 MCG tablet Indications: Menorrhagia with regular cycle Take 1 tablet by mouth Daily Take 1 tablet by mouth daily 28 tablet 11 03/23/2024 02/22/2025 Activefidaxomicin 200 mg oral tablet (20 sources)Macrolide AntibacterialStart: 87-87-6095kdox 1 tablet by mouth twice dailyfidaxomicin 200 MG tablet Take 1 tablet by mouth 2 times daily. 02/28/2025 ActiveStart: 06-15-2024 End: 55-75-3354rblw 1 tablet by mouth once in the morningfidaxomicin (Dificid) 200 MG tablet Indications: H/O Clostridium difficile infection Take 1 tablet ( 200 mg) by mouth in the morning and 1 tablet (200 mg) before bedtime. Do all this for 10 days. 20 tablet 06/15/2024 06/25/2024 ActiveStart: 10-20-2023 End: 32-47-0685egmf 1 tablet by mouth every other dayFidaxomicin (Dificid) 200 mg tablet Discontinued 200 MG PO .every other day October 20, 2023 12:00am December 16, 2023 2:11pmStart: 10-20-2023 End: 22-37-3649zrvc 1 tablet by mouth every twelve hoursFidaxomicin (Dificid) 200 mg tablet Discontinued 200 MG PO Every 12 hours 20 10 0 October 20, 2023 12: 00am December 16, 2023 2:11pmfludrocortisone acetate 0.1 mg oral tablet (3 sources)Start: 06-01-2023 End: 83-38-5000fanf 1 tablet by mouth at bedtimefludrocortisone (Florinef) 0.1 MG tablet Indications: Autonomic dysfunction Take 1 tablet (0.1 mg) by mouth at bedtime 30 tablet 11 06/01/2023 05/31/2024 Activefluocinonide 0.5 mg/ml topical solution (20 sources)CorticosteroidStart: 07-15-2023 End: 90-37-9639akuoymcsqwwt (Lidex) 0.05 % external solution Indications: Other seborrheic dermatitis Apply to affected areas on the scalp, up to twice a day when flared, 30 day supply 60 mL 11 07/25/2024 ActiveStart: 10-20-2022 Fluocinonide 0.05 % solution Active 1 APPLIC TOPICAL Daily as needed for rash October 20, 2023 12:00am Complies with drug therapyfluticasone propionate 0.05 mg/actuat metered dose nasal spray (20 sources)CorticosteroidStart: 34-04-9712jhou 2 spray(s) nasal route in the morningfluticasone [...] acid 1 mg oral tablet (20 sources)Start: 63-30-6178Qviqh Acid 1 mg tablet Active PO Daily December 12, 2024 12:00am Complies with drug therapyStart: 03-18-2022 End: 87-16-9197wchp 1 tablet by mouth in the morningfolic acid (Folvite) 1 MG tablet Take 1 mg by mouth in the morning. 01/15/2023 ActiveComment on above:Take 1 tablet by mouth once daily.TAKE 1 TABLET BY MOUTH EVERY DAYhydroxychloroquine sulfate 200 mg oral tablet (20 sources)Antimalarial, Antirheumatic AgentStart: 65-88-5411phvwIAZiuqsquLGGTL (PLAQUENIL) 200 mg tablet Indications: CHRISTIAN positive , Other systemic lupus erythematosus with other organ involvement (HCC) TAKE 1 TAB TWICE A DAY WITH FOOD *SUNSCREEN WHILE OUTDOORS/OPHTHAMOLOGY EVERY 6-12 MONTHS WHILE ON* 60 tablet 11 01/23/2025 ActiveStart: 10-17-6302mpzs 2 tablets by mouth once daily Hydroxychloroquine 200 mg tablet Active 400 MG PO Daily October 20, 2023 12:00am Complies with drug therapyStart: 48-08-3390pdop 400 mg by mouth once daily Hydroxychloroquine Active 400 MG PO Daily October 20, 2023 12:00amStart: 10-19-2023 End: 93-89-1749cpanYSDlnotxnKNFAF (PLAQUENIL) 200 mg tablet Indications: CHRISTIAN positive [...] 180 tablet 3 10/30/2022 ActiveStart: 05-05-2021 End: 33-05-4125qpwaESIohkkriIHGQE (PLAQUENIL) 200 mg tablet Indications: CHRISTIAN positive [...] at the same time. 0 Active End: 26-70-7622jbrjawswvhzkpkebaz sulfate (HYDROXYCHLOROQUINE ORAL) Hydroxychloroquine Sulfate Active 0 03/12/2022iscontinued (Duplicate Entry) Hydroxychloroquine Sulfate ActiveComment on above:Take one tab by mouth twice a day with food. Sunscreen when outdoors. See ophthalmology every 6-12months on med.Hydroxychloroquine Sulfate ActiveTAKE 1 TAB TWICE A DAY WITH FOOD *SUNSCREEN WHILE OUTDOORS/OPHTHAMOLOGY EVERY 6-12 MONTHS WHILE ON*hyoscyamine sulfate 0.125 mg oral tablet (2 sources)Start: 08-41-3652mnwz 1 tablet by mouth every six hours as needed for painhyoscyamine (Anaspaz,Levsin) 0.125 MG tablet TAKE 1 TABLET BY MOUTH EVERY 6 HOURS NEEDED FOR ABDOMINAL PAIN 0 06/27/2023 Activeibuprofen 400 mg oral tablet (20 sources)Nonsteroidal Anti-inflammatory DrugStart: 11-56-5732Twxwpwkbh 400 mg tablet Active 400 MG PO [...] mouth. Immunoglobulin G (20 sources)Human Immunoglobulin GStart: 36-15-2393Vezwq: 05-41-3944dfoowubmk Active IV EVERY 4 WEEKS December 12, 2024 10:58am Complies with drug therapyStart: 12-12-2024 End: 80-87-6746lvqkowhfm Discontinued IV December 12, 2024 12:00am December 12, 2024 10:58amimmune globulin, human, (Gammagard) infusion Infuse into a venous catheter Activeimmune globulin, human, (Gammagard) infusion Infuse into a venous catheter 1 time. Activemagnesium citrate 58.2 mg/ml oral solution (2 sources)Start: 15-24-9059TUT Magnesium Citrate oral solution TAKE HALF OF THE BOTTLE WITH 8 OZ OF WATER, TAKE THE OTHER HALFAFTER 1 HOUR WITH 8 OZ OF WATER 0 06/27/2023 Activemethocarbamol 750 mg oral tablet (1 source)Muscle RelaxantStart: 49-86-9907czws 1 tablet by mouth twice daily Methocarbamol 750 MG tablet Take 1 tablet by mouth 2 times daily. 01/02/2025 Activemetoprolol tartrate 50 mg oral tablet (20 sources)beta-Adrenergic BlockerStart: 07-26-2024 End: 90-48-7340qzki 1 tablet by mouth four times dailymetoprolol tartrate (Lopressor) 50 mg tablet Indications: Paroxysmal supraventricular tachycardia ([facility]) , Essential hypertension Take 1 tablet by mouth 4 times a day. 360 tablet 3 07/26/2024 07/26/2025 ActiveStart: 61-14-6164rwgj 4 tablets by mouth once dailyMetoprolol Tartrate 50 mg tablet Active 200 MG PO Daily October 20, 2023 12:00am Complies with drug therapyStart: 72-06-3402dfpn 200 mg by mouth once dailyMetoprolol Tartrate Active 200 MG PO Daily October 20, 2023 12:00amStart: 06-50-7673ehxg 50 mg by mouth once dailyMetoprolol Tartrate Active 50 MG PO Daily October 20, 2023 12:00amStart: 05-25-2022 End: 15-30-1035etho 2 tablets by mouth in the morningmetoprolol tartrate (Lopressor) 50 MG tablet Take 100 mg by mouth in the morning and 100 mg before b edtime. 04/23/2023 ActiveStart: 12-98-8887sneq 1 tablet by mouth twice daily metoprolol tartrate, short acting, (LOPRESSOR) 50 mg tablet Take 50 mg by mouth twice daily. 05/25/2022 ActiveStart: 07-29-2020 End: 99-50-8478gemm 1 tablet by mouth twice dailymetoprolol tartrate, short acting, (LOPRESSOR) 25 mg tablet Take 25 mg by mouth twice daily. 0 07/29/2020 ActiveComment on above:Take 25 mg by mouth twice daily.Take 50 mg by mouth twice daily.montelukast 10 mg oral tablet (5 sources)Leukotriene Receptor AntagonistStart: 05-25-2023 End: 23-49-6670apde 1 tablet by mouth once daily at bedtimemontelukast (Singulair) 10 mg tablet Take 1 tablet (10 mg) by mouth once daily at bedtime. 0 05/25/2023 05/24/2024 ActiveNaltrexone (15 sources)Opioid AntagonistStart: 01-19-2022 End: 34-49-1193duws 1 capsule by mouth once dailynaltrexone capsule 1 mg TAKE ONE CAPSULE BY MOUTH DAILY 0 01/19/2022 07/25/2022 DiscontinuedStart: 01-19-2022 take 1 capsule by mouth once dailynaltrexone capsule 1 mg TAKE ONE CAPSULE BY MOUTH DAILY 0 01/19/2022 ActiveComment on above:TAKE ONE CAPSULE BY MOUTH DAILY nitroglycerin 0.4 mg sublingual tablet (20 sources)Nitrate VasodilatorStart: 10-07-2020 End: 98-76-6863lwdqwdwfjkayp sublingual (NITROQUICK) 0.4 mg SL tablet Dissolve 0.4 mg under the tongue. 0 10/07/2020 07/25/2022 DiscontinuedComment on above: Dissolve 0.4 mg under the tongue.nystatin 725506 unt/ml oral suspension (20 sources)Polyene AntifungalStart: 29-50-7766ddav 4 mL by mouth every six hoursNystatin 865836 UNIT/ML oral suspension Swish and spit 4 mL Every 6 hours. 11/06/2024 ActiveStart: 49-50-0186vcke 4 mL by mouth four times dailynystatin (MYCOSTATIN) 100,000 unit/mL suspension TAKE 4 ML BY MOUTH / THROAT 4 TIMES A DAY FOR 7 DAYS 11/06/2024 ActiveStart: 07-31-2024 End: 78-89-0798abzm 1 mL by mouth once dailyNystatin 100,000 unit/mL suspension Discontinued 1 ML PO Daily July 31, 2024 12:00am December 12, 2024 10:49am swish and swallowStart: 07-25-2024 End: 11-22-3287btqqkuhx (Mycostatin) 426597 UNIT/ML suspension Indications: Rash and other nonspecific skin eruption Take 4 mL (400,000 Units) by mouth in the morning and 4 mL (400,000 Units) at noon and 4 mL (400,000 Units) in the evening and 4 mL (400,000 Units) before bedtime. Do all this for 14 days. 224 mL 08/08/2024 ActiveStart: 01-27-2024 End: 65-63-8554pguuoymb (MYCOSTATIN) 100,000 unit/mL suspension Take 5 mL by mouth four times daily for 7 days. SWISH AND SWALLOW 1 TEASPOON(S) (5ML) 4 TIMES PER DAY. 140 mL 01/27/2024 02/03/2024 ActiveStart: 14-64-0218qwqsgihm (Mycostatin) cream Indications: Candidiasis of skin Apply to left armpit BID until clear 15 g 01/15/2023 Activeondansetron 4 mg disintegrating oral tablet (2 sources)Serotonin-3 Receptor AntagonistStart: 80-54-8216lllw 1 tablet by mouth every six hours as needed for nausea and vomitingondansetron ODT (Zofran- ODT) 4 MG disintegrating tablet DISSOLVE 1 TABLET IN MOUTH EVERY 6 HOURS NEEDED FOR NAUSEA AND VOMITING 0 06/27/2023 Activepantoprazole 20 mg delayed release oral tablet (20 sources)Proton Pump InhibitorStart: 83-84-2460tvad 2 tablets by mouth twice dailyPantoprazole 20 mg tablet,delayed release (DR/EC) Active 40 MG PO Twice daily November 13, 2024 11:24am Complies with drug therapyStart: 87-48-1608hxoz 2 tablets by mouth once dailyPantoprazole 20 mg tablet,delayed release (DR/EC) Active 40 MG PO Daily November 13, 2024 11:24am Complies with drug therapyStart: 40-89-4567cbge 1 tablet by mouth at breakfastpantoprazole DR (PROTONIX) 40 mg tablet TAKE 1 TABLET BY MOUTH 1/2 TO 1 HOUR BEFORE MORNING MEAL 10/21/2024 ActiveStart: 07-19-2024 End: 67-63-3420dgrc 1 tablet by mouth once dailyPantoprazole 20 mg tablet,delayed release (DR/EC) Discontinued 20 MG PO Daily July 19, 2024 1:00am November 13, 2024 11:24amStart: 01-26-2024 End: 05-29-7996jcbq 1 tablet by mouth once dailypantoprazole (ProtoNix) 40 MG EC tablet Take 40 mg by mouth Daily 01/26/2024 03/16/2024 DiscontinuedStart: 09-22-2023 End: 77-28-4791yuab 1 tablet by mouth once dailyPantoprazole 40 mg tablet,delayed release (DR/EC) Discontinued 40 MG PO Daily September 22, 2023 12:00am October 20, 2023 1:07pm Take 1 tablet orally once a day.phentermine hydrochloride 37.5 mg oral tablet (20 sources)Sympathomimetic Amine AnorecticStart: 04-26-2023 End: 80-48-6249xseb 1 tablet by mouth before mealtimephentermine (Adipex-P) 37.5 MG tablet Take 37.5 mg by mouth in the morning. Take before meals. 05/26/2023 ActiveComment on above:Take 1 tablet by mouth daily before breakfast for 30 days.Take 1 tablet by mouth daily before breakfast for 90 days.pilocarpine hydrochloride 5 mg oral tablet (13 sources)Cholinergic Receptor AgonistStart: 95-31-0190ixbm 1 tablet by mouth three times dailypilocarpine 5 MG tablet Take 1 tablet by mouth 3 (three) times a day. 2024 ActiveStart: 07-12-2024 End: 56-92-9596alyx 1 tablet by mouth three times dailypilocarpine (SALAGEN) 5 mg tablet TAKE 1 TABLET BY MOUTH THREE TIMES A DAY 135 tablet 1 08/07/2024 0 09/06/2024 Activepravastatin sodium 20 mg oral tablet (20 sources)HMG-CoA Reductase InhibitorStart: 95-59-1839egvc 1 tablet by mouth once dailyPravastatin 20 MG tablet Take 1 tablet by mouth daily. 05/03/2024 ActiveStart: 01-26-2024 End: 23-31-6660vgcv 1 tablet by mouth once dailypravastatin (Pravachol) 20 MG tablet Take 20 mg by mouth Daily 01/26/2024 03/16/2024 DiscontinuedStart: 10-20-2023 End: 01-62-3335nqid 1 tablet by mouth once dailyPravastatin 20 mg tablet Discontinued 20 MG PO Daily October 20, 2023 12:00am October 20, 2023 1:08pmStart: 93-65-5390yvin 1 tablet by mouth once dailypravastatin (Pravachol) 20 MG tablet TAKE 1 TABLET BY MOUTH EVERY DAY FOR 30 DAYS 0 06/24/2023 ActivepredniSONE 10 mg oral tablet (20 sources)Start: 00-92-3291hdpa 1 tablet by mouth once daily at mealtime predniSONE 10 MG tablet Take 1 tablet by mouth As directed. Take 40mg daily x 3, decrease by 5mg every 3days until taking 10mg daily with food thereafter (no oral nsaids) 01/23/2025 ActiveStart: 84-37-3160ijwnzxGFQW (DELTASONE) 10 mg tablet Indications: Other systemic lupus erythematosus with other organ involvement (HCC) Take 40mg daily x 3, decrease by 5mg every 3days until taking 10mg daily with food thereafter (no oral nsaids) 120 tablet 1 01/23/2025 Active Start: 06-22-2024 End: 46-13-3525uizonqZFWK (DELTASONE) 10 mg tablet Indications: Other systemic lupus erythematosus with other organ involvement (HCC) Take 40mg daily x 3, decrease by 5mg every 3days until taking 10mg daily with food thereafter (no oral nsaids) 120 tablet 1 10/07/2024 ActiveStart: 01-12-2024 End: 70-17-0664jzqrbgSXHE (DELTASONE) 10 mg tablet Indications: Other systemic [...] 12:00am Complies with drug therapyStart: 05-12-2023 End: 87-34-2982gbvy 1 tablet by mouth once dailyPrednisone 10 mg tablet Active 10 MG PO Daily October 20, 2023 12:00am Complies with drug therapyStart: 05-12-2023 End: 83-93-7813hmrvmlDTHL (DELTASONE) 10 mg tablet Indications: Other systemic lupus erythematosus with other organ involvement (HCC) Take 40mg daily x 5days, then decrease 5mg every 5days until 10mg daily thereafter 120 tablet 1 05/12/2023 10/05/2023 DiscontinuedStart: 08-59-9822kbzzjyRSAE (DELTASONE) 10 mg tablet Indications: Other systemic lupus erythematosus with other organ involvement (HCC) Take 40mg daily x 5days, then decrease 5mg every 5days until 10mg daily thereafter 120 tablet 1 08/17/2022 ActiveStart: 06-01-2022 End: 10-45-1901padl 1 tablet by mouth once dailypredniSONE (DELTASONE) 10 mg tablet Take 10 mg by mouth once daily. 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 08/16/2023 Activethiamine 100 mg oral tablet (20 sources)Start: 52-46-5244ofhs 1 tablet by mouth once daily as neededThiamine Hcl (Vitamin B1) 100 mg tablet Active MG PO Daily as needed December 12, 2024 12:00am Complies with drug therapyStart: 06-01-2023 End: 93-17-6252jzbi 1 tablet by mouth once dailyThiamine 100 MG tablet Take 1 tablet by mouth daily. 10/27/2024 ActiveTirzepatide (Mounjaro) 2.5 MG/0.5ML Solution Auto-injector (1 source)Start: 22-07-0511Wenjqwuhnbs (Mounjaro) 2.5 MG/0.5ML Solution Auto- injector Inject 2.5 mg under the skin every 7 days. 02/26/2025 Activetopiramate 25 mg oral tablet (20 sources)Start: 04-26-2023 End: 01-51-9595vvgj 1 tablet by mouth twice dailytopiramate (TOPAMAX) 25 mg tablet Indications: Other chronic pain Take 1 tablet by mouth two times a day. 180 tablet 05/26/2023 03/18/2024 Discontinued (Course of therapy completed) Comment on above:Take 1 tablet by mouth two times a day.tretinoin 0.25 mg/ml topical cream (20 sources)RetinoidStart: 65-07-5196zkczupiva (Retin-A) 0.025 % cream Indications: Acne vulgaris Apply to face, once daily at evening/night time, 30 day supply 45 g 11 11/23/2024 ActiveStart: 09-44-1097weckcmqtv (Retin-A) 0.05 % cream Indications: Striae atrophic [...] Nucleoside Analog DNA Polymerase InhibitorStart: 10-03-2021 End: 02-79-4389qzkf 1 tablet by mouth once dailyacyclovir (ZOVIRAX) 400 mg tablet Take 400 mg by mouth once daily. 0 10/03/2021 04/26/2023 Discontinued (Discontinued by Patient)Comment on above:Take 400 mg by mouth once daily. amLODIPine 5 mg oral tablet (8 sources)Dihydropyridine Calcium Channel BlockerStart: 02-03-2024 End: 04-10-2273wimv 1 tablet by mouth once dailyamLODIPine (Norvasc) 5 MG tablet Take 5 mg by mouth Daily 02/03/2024 03/16/2024 DiscontinuedStart: 10-07-2020 take 1 tablet by mouth once dailyamLODIPine (NORVASC) 2.5 MG tablet Take 1 tablet by mouth daily 30 tablet 3 10/07/2020 ActiveazaTHIOprine 50 mg oral tablet (20 sources)Purine AntimetaboliteStart: 05-24-2023 End: 32-70-9505ibyc 1 tablet by mouth three times dailyAzathioprine 50 mg tablet Discontinued 50 MG PO Three times daily October 20, 2023 12:00am October 11:22amStart: 05-24-2023 End: 15-85-7735pxbw 3 tablets by mouth once dailyazaTHIOprine (Imuran) 50 MG tablet Take 150 mg by mouth Daily 05/24/2023 02/28/2025 Discontinued (Therapy completed)Start: 99-62-2090fglo 50 mg by mouth twice dailyAzathioprine Active 50 MG PO Twice daily October 20, 2023 12:00amStart: 26-20-0839nsdw 3 tablets by mouth three times dailyazaTHIOprine (Imuran) 50 mg tablet Take 3 tablets (150 mg) by mouth 3 times a day. 02/16/2023 ActiveStart: 11-24-2022 End: 14-82-2694pzrg 3 tablets by mouth once daily at mealtimeazaTHIOprine (IMURAN) 50 mg tablet Indications: Other systemic lupus erythematosus with other organinvolvement (HCC) , Encounter for correction current use of azathioprine TAKE 3 TABLETS BY MOUTH DAILY WITH FOOD. HOLD IF ON ANTIBIOTICS OR ILL. 90 tablet 3 02/16/2023 ActiveStart: 08-19-2022 End: 52-00-5198cprs 2 tablets by mouth once daily at mealtimeazaTHIOprine (IMURAN) 50 mg tablet Indications: Other systemic lupus erythematosus with other organinvolvement (HCC) , 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 Take 2tab daily by mouth with food. Hold if on antibiotics or ill. 60 tablet 3 08/19/2022 11/24/2022 DiscontinuedStart: 06-15-2022 End: 76-66-9254lnwj 1 tablet by mouth once daily at [...] (20 sources)B Lymphocyte Stimulator-specific InhibitorStart: 11-13-2024 End: 26-61-1449hbawrmsex (Benlysta) Discontinued IV every month November 13, 2024 12:00am March 13, 2025 9:07amStart: 31-27-2993scgdbeatp (Benlysta) Active IV every month November 13, 2024 12:00am Complies with drug therapyStart: 11-13-2024 Start: 41-53-1007Ojfvffss 200 MG/ML Solution Auto-injector Inject 200 mg under the skin every 7 days. 09/18/2024 ActiveStart: 02-04-2023 End: 11-10-8696lrpako 200 mg by subcutaneous injection every weekbelimumab [...] 10 mg oral tablet (20 sources) End: 72-66-4218Tmgduz 10 mg tab 2 0 04/26/2023 Discontinued (Discontinued by Patient)Comment on above:2dexamethasone 2 mg oral tablet (9 sources)CorticosteroidStart: 01-20-2024 End: 65-65-1647ujsCNZFOgjkot (Decadron) 2 MG tablet Indications: Lumbosacral radiculopathy at L5 2mg 3 pills po X3days,2 pills po daily X3 days , then 1 pill po daily X3 days then stop 9 days 18 pills 18 tablet 1 01/20/2024 03/16/2024 Discontinueddicyclomine hydrochloride 10 mg oral capsule (20 sources)AnticholinergicStart: 01-25-2024 End: 34-50-2839ankm 1 capsule by mouth in the morning, then take 1 capsule by mouth in the evening, then take 1 capsule by mouth at bedtimedicyclomine (Bentyl) 10 MG capsule Take 10 mg by mouth in the morning and 10 mg in the evening and 10 mg before bedtime. 01/25/2024 03/16/2024 DiscontinuedStart: 09-22-2023 End: 81-49-8768ypfa 1 capsule by mouth twice daily as needed for painDicyclomine 10 mg capsule Discontinued 10 MG PO Twice daily as needed for abdominal pain 60 30 5 September 22, 2023 12:00am October 20, 2023 1:07pm Take 1 capsule orally twice a day prndiphenhydrAMINE (15 sources)Histamine-1 Receptor AntagonistStart: 01-24-2025 End: 78-03-009937 mg, INTRAVENOUS, ONCE, 1 dose, On Wed01/24/25 at 0930Start: 01-11-2025 End: 43-98-4354pvxd 1 dose by mouth once25 mg, ORAL, ONCE, 1 dose, On Wed01/11/25 at 1430Start: 12-14-2024 End: 86-79-8835tdqz 1 dose by mouth once25 mg, ORAL, ONCE, 1 dose, On Wed12/14/24 at 1430Start: 11-29-2024 End: 19-73-998909 mg, INTRAVENOUS, ONCE, 1 dose, On Wed11/29/24 at 1000Start: 11-16-2024 End: 91-14-1040agyx 1 dose by mouth once25 mg, ORAL, ONCE, 1 dose, On Wed11/16/24 at 1400Start: 10-31-2024 End: 03-15-029528 mg, INTRAVENOUS, ONCE, 1 dose, On Wed10/31/24 at 1000Start: 10-19-2024 End: 04-98-5351cdfb 1 dose by mouth once25 mg, ORAL, ONCE, 1 dose, On Wed10/19/24 at 1430Start: 2024 End: 59-87-2010vjav 1 dose by mouth once25 mg, ORAL, ONCE, 1 dose, On Wed10/04/24 at 1430Start: 10-02-2024 End: 61-15-832405 mg, INTRAVENOUS, ONCE, 1 dose, On Wed10/02/24 at 0900Start: 09-18-2024 End: 63-63-4374flsg 1 dose by mouth once25 mg, ORAL, ONCE, 1 dose, On Wed09/18/24 at 1300Start: 09-06-2024 End: 93-94-224549 mg, INTRAVENOUS, ONCE, 1 dose, On Wed09/06/24 at 0930Start: 08-08-2024 End: 47-24-182442 mg, INTRAVENOUS, ONCE, 1 dose, On Wed08/08/24 at 0930Start: 07-11-2024 End: 76-73-053095 mg, INTRAVENOUS, ONCE, 1 dose, On Wed07/11/24 at 0900Start: 06-13-2024 End: 67-12-358155 mg, INTRAVENOUS, ONCE, 1 dose, On Wed06/13/24 at 1000Start: 05-19-2024 End: 14-39-873622 mg, INTRAVENOUS, ONCE, 1 dose, On Wed05/19/24 at 1000 famotidine 20 mg oral tablet (19 sources)Histamine-2 Receptor AntagonistStart: 04-10-2024 End: 90-18-8271cacf 1 tablet by mouth at bedtimefamotidine (Pepcid) 20 MG tablet Indications: LPRD (laryngopharyngeal reflux disease) Take 1 tablet(20 mg) by mouth at bedtime 90 tablet 04/10/2024 09/04/2024 Discontinued (Therapy completed)Start: 07-21-2020 End: 33-47-6720dgdm 1 tablet by mouth once daily at [...] mg/mg topical ointment (20 sources)Start: 11-22-2023 End: 21-47-3490Ezsycwpwsx 0.1 % ointment Discontinued 1 APPLIC TOPICAL Three times daily 15 10 0 November 22, 2023 12:00am December 16, 2023 2:12pmhydrocortisone 100 mg injection (9 sources)CorticosteroidStart: 01-24-2025 End: 00-92-625068 mg, INTRAVENOUS, ONCE, 1 dose, On Wed01/24/25 at 0930Start: 11-29-2024 End: 02-84-874741 mg, INTRAVENOUS, ONCE, 1 dose, On Wed11/29/24 at 1000Start: 10-31-2024 End: 37-60-802304 mg, INTRAVENOUS, ONCE, 1 dose, On Wed10/31/24 at 1000Start: 10-02-2024 End: 34-98-499248 mg, INTRAVENOUS, ONCE, 1 dose, On Wed10/02/24 at 0900Start: 09-06-2024 End: 34-47-543847 mg, INTRAVENOUS, ONCE, 1 dose, On Wed09/06/24 at 0930Start: 08-08-2024 End: 36-05-117648 mg, INTRAVENOUS, ONCE, 1 dose, On Wed08/08/24 at 0930Start: 07-11-2024 End: 48-49-408622 mg, INTRAVENOUS, ONCE, 1 dose, On Wed07/11/24 at 0900Start: 06-13-2024 End: 57-59-612951 mg, INTRAVENOUS, ONCE, 1 dose, On Wed06/13/24 [...] oral capsule (3 sources)Azole AntifungalStart: 04-03-2024 End: 02-11-5245cpbj 1 capsule by mouth once dailyitraconazole (Sporanox) 100 MG capsule Indications: Oral thrush Take 1 capsule (100 mg) by mouth Daily for 5 days 5 capsule 04/03/2024 04/08/2024 Expiredomeprazole 40 mg delayed release oral capsule (20 sources)Proton Pump InhibitorStart: 03-16-2024 End: 19-23-0382ojjp 1 capsule by mouth once dailyOmeprazole 40 mg capsule,delayed release(DR/EC) Discontinued 40 MG PO Daily 30 30 3 March 16, 2024 12:00am July 19, 2024 10:52amStart: 08-09-2020 End: 47-62-5869xuox 1 capsule by mouth twice dailyomeprazole (PRILOSEC) [...] mg oral capsule (20 sources)Start: 12-15-2023 End: 47-53-3410ienb 1 capsule by mouth in the morning, then take 1 capsule by mouth in the evening, then take 1 capsule by mouth at bedtimepregabalin (Lyrica) 100 MG capsule Indications: Lumbosacral radiculopathy Take 1 capsule (100 mg) by mouth in the morning and 1 capsule (100 mg) in the evening and 1 capsule (100 mg) before bedtime. 90 capsule 2 12/15/2023 03/16/2024 DiscontinuedStart: 08-35-5234gllh 3 capsules by mouth once daily as needed for painPregabalin 75 mg capsule Active 225 MG PO Daily as needed for nerve pain October 20, 2023 12:00am Complies with drug therapyStart: 42-25-2450pyhn 225 mg by mouth once daily Pregabalin Active 225 MG PO Daily October 20, 2023 12:00amStart: 82-01-4945ejuj 1 capsule by mouth three times dailypregabalin (Lyrica) 100 MG capsule Indications: Lumbosacral radiculopathy TAKE 1 CAPSULE BY MOUTH THREE TIMES A DAY for 30 90 capsule 2 07/06/2023 ActiveStart: 10-13-2021 End: 23-73-9199tirl 1 capsule by mouth three times dailypregabalin [...] FUMARATE/FA ( VITAMIN ORAL) (2 sources) End: 08-00-5413jhcw 1 tablet by mouth once dailyPRENATAL VIT/IRON [...] tablet (9 sources)Factor Xa InhibitorStart: 12-06-2023 End: 64-82-0743ygig 1 tablet by mouth at mealtimeXarelto 15 MG tablet Take 15 mg by mouth in the evening. Take with meals 12/06/2023 03/16/2024 Discontinued simvastatin 20 mg oral tablet (20 sources)HMG-CoA Reductase InhibitorStart: 03-10-2022 End: 95-20-6418cqhldphzhhc (ZOCOR) 20 mg tabletterbinafine 250 mg oral tablet (3 sources)Allylamine AntifungalStart: 04-02-2024 End: 25-66-0568etsk 1 tablet by mouth once dailyterbinafine (LamISIL) 250 MG tablet Indications: Oral thrush Take 1 tablet (250 mg) by mouth Daily for 5 days 5 tablet 04/02/2024 04/03/2024 Discontinuedtriamcinolone acetonide 10 mg/ml injectable suspension (20 sources)CorticosteroidStart: 02-14-2025 End: 39-33-1702zvdrothfxgzao acetonide (Kenalog) injection 2.5 mgStart: 02-14-2025 End: .5 mg, Intra-lesional, Once, On Wed02/14/25 at 1545, For 1 dose Start: 11-23-2024 End: 67-75-0588dhrjdkemvgobb 10 MG/ML injection 0.25 mL by Intralesional route once. 11/23/2024 ActiveStart: 55-48-3080vekysbovxkjoy acetonide (Kenalog) injection 2.5 mgStart: 29-25-1514Rxsiwfhmhzctw Acetonide 0.025 % lotion 1 application 06/23/2022 Activetriamcinolone acetonide (KENALOG) 0.025 % lotion Apply 1 Application topically as needed. Activevitamin b12 1 mg/ml injectable solution (17 sources)Vitamin C84Uxlvh: 11-29-2024 End: 64-90-8911tweqkm 1 dose by intramuscular injection once1,000 mcg, INTRAMUSCULAR, ONCE, 1 dose, On Wed11/29/24 at 1000Start: 10-31-2024 End: 44-74-3944wizwnh 1 dose by intramuscular injection once1,000 mcg, INTRAMUSCULAR, ONCE, 1 dose, On Wed10/31/24 at 1000Start: 10-02-2024 End: 25-56-0636kfrkkr 1 dose by intramuscular injection once1,000 mcg, INTRAMUSCULAR, ONCE, 1 dose, On Wed10/02/24 at 0900Start: 09-06-2024 End: 18-50-8184fjvfzl 1 dose by intramuscular injection once1,000 mcg, INTRAMUSCULAR, ONCE, 1 dose, On Wed09/06/24 at 1000Start: 08-08-2024 End: 69-11-8445vmflhp 1 dose by intramuscular injection once1,000 mcg, INTRAMUSCULAR, ONCE, 1 dose, On Wed08/08/24 at 0930Start: 07-11-2024 End: 56-75-7541eznwyn 1 dose by intramuscular injection once1,000 mcg, INTRAMUSCULAR, ONCE, 1 dose, On Wed07/11/24 at 0900Start: 06-13-2024 End: 83-55-7911erqpvn 1 dose by intramuscular injection once1,000 mcg, INTRAMUSCULAR, ONCE, 1 dose, On Wed06/13/24 at 1000Start: 04-26-2024 End: 95-72-7773xmmxoh 1 dose by intramuscular injection once1,000 mcg, INTRAMUSCULAR, ONCE, 1 dose, On Wed04/26/24 at 0930Start: 03-23-2024 End: 17-84-0136ihsupc 1 dose by intramuscular injection once1,000 mcg, INTRAMUSCULAR, ONCE, 1 dose, On Wed03/23/24 at 1030Start: 02-21-2024 End: 10-40-7999zdpypp 1 dose by intramuscular injection once1,000 mcg, INTRAMUSCULAR, ONCE, 1 dose, On Wed02/21/24 at 1100Start: 01-25-2024 End: 31-99-0666vdktid 1 dose by intramuscular injection once1,000 mcg, INTRAMUSCULAR, ONCE, 1 dose, On Wed01/25/24 at 1130Start: 50-10-4968bvkbjx 1 mL by subcutaneous injection every 30 dayscyanocobalamin (VITAMIN B-12) 1,000 mcg/mL injection Inject 1 mL (1,000 mcg total) under the skin every 30 (thirty) days. 12/28/2023 ActiveStart: 12-27-2023 End: 84-20-8241ixxthkcpsfzqbq 1,000 mcg injectionStart: 11-29-2023 End: 76-12-4673oraycvgcyrurwl 1,000 mcg injectionStart: 10-27-2023 End: 89-62-9455bybfbdlmpiwtth 1,000 mcg injectionStart: 09-30-2023 End: 72-03-2253dvyyiwctnjarje 1,000 mcg injection Problems Active Problems Problem ClassificationProblemDateDocumented DateEpisodic/ChronicAbdominal pain (20 sources)Finding of sensation of abdomen; Translations: [Unspecified abdominal pain]Onset: [id number] disorders (20 sources)Anxiety; Translations: [Anxiety disorder, unspecified]Onset: [id number] infection; unspecified site (3 sources)Bacterial infection due to Pseudomonas; Translations: [Other bacterial infections of unspecified site]Onset: [id number] Cardiac dysrhythmias (20 sources)Postural orthostatic tachycardia syndrome ; Translations: [POTS (postural orthostatic tachycardia syndrome)]Onset: 73-95-9028TzdjgupUosemzhojk and other anemia (9 sources)Anemia of chronic disease; Translations: [Anemia in other chronic diseases classified elsewhere]ChronicDeficiency and other anemia (1 source)Anemia in other chronic diseases classified elsewhere; Translations: [Anemia of chronic disease]Onset: 24-57-2931KqjqzjrAtflgmim mellitus without complication (15 sources)Type 2 diabetes mellitus; Translations: [Type 2 diabetes mellitus without complications]Onset: [id number] of white blood cells (13 sources)Leukocytosis; Translations: [Elevated white blood cell count, unspecified]Onset: 536338-76-5138ElvawuvDiyvekkwy of lipid metabolism (20 sources)Hyperlipidemia; Translations: [Hyperlipidemia, unspecified]Onset: 144072-48-7749IjsffdeFezgbzsoew disorders (20 sources)Laryngopharyngeal reflux; Translations: [Gastro-esophageal reflux disease without esophagitis]Onset: 132260-31-4679NufiowkHhnkibfpo hypertension (20 sources)Essential hypertension; Translations: [Essential (primary) hypertension]Onset: 359874-81-3524EeetmldPjeao of unknown origin (1 source)Pyrexia of unknown origin; Translations: [Fever, unspecified] 25-04-6223RdsyyvslMmrzcucg disorders (20 sources)Hypogammaglobulinemia; 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]Onset: 796359-74-4017SlonreyNymaorfcjtjaf and screening for infectious disease (20 sources)Anti-nuclear factor positive; Translations: [Other specified abnormal immunological findings in serum]Onset: 00-86-7485ShjkdsxeLjfynet and fatigue (20 sources)Malaise and fatigue; Translations: [Chronic fatigue, unspecified] Onset: 59-19-6595OmjahkzHiqwnevmo disorders (20 sources)Excessive and frequent menstruation with irregular cycle; Translations: [Menometrorrhagia]Onset: 74-68-6641QzkqpxoAtlg disorders (20 sources)Recurrent depression; Translations: [Major depressive disorder, recurrent, unspecified]Onset: 131022-95-2986XnlwgqmSxzesqx (3 sources)Candidiasis of mouth; Translations: [Candidal stomatitis]04-02-2024 EpisodicNeoplasms of unspecified nature or uncertain behavior (2 sources)Neoplasm of uncertain behavior of skin; Translations: [Neoplasm of uncertain behavior of skin]55-56-1232KkpmpwvtIfxlsdheluar breast conditions (20 sources)Mammary duct ectasia; 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]Onset: 911528-88-4964QgmnvrfMcavkbfwhgdd breast conditions (20 sources)Discharge from nipple; Translations: [Nipple discharge]Onset: 567699-22-2695IcpfswgbPpcynvdevxq deficiencies (20 sources)Vitamin D deficiency; Translations: [Vitamin D deficiency, unspecified]Onset: 89-47-1833YnvndrzDgymvugasvopvy (20 sources)Degenerative joint disease involving multiple joints; 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]Onset: 69-04-6273CsfjnixNlxpiyehlnra (20 sources)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; Translations: [Other osteoporosis without current pathological fracture]Onset: 308822-78-3168 ChronicOther aftercare (3 sources)Drug therapy status; Translations: [Encounter for correction current use of azathioprine]EpisodicOther aftercare (1 source)Polypharmacy ; Translations: [Other correction (current) drug therapy] EpisodicOther aftercare (1 source)Long-term current use of drug therapy; Translations: [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]37-49-1430PsicyhadOpmgo circulatory disease (20 sources)Raynaud's disease; Translations: [Raynaud's syndrome without gangrene]Onset: 374029-75-9447OzjhdqzNddev circulatory disease (2 sources)Spider nevus; Translations: [Nevus, non-neoplastic]70-29-7201Nyzlwedd Other congenital anomalies (1 source)Emanuel-Danlos syndrome; 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, unspecified]15-14-9937QyncgimUsgha connective tissue disease (1 source)Pain in left foot; Translations: [Pain in left foot]Onset: 09-14-2018 EpisodicOther connective tissue disease (1 source)Pain in right foot; Translations: [Pain in right foot]Onset: 33-86-3922NhronjmeCcgef connective tissue disease (20 sources)Paraparesis; Translations: [Other symptoms and signs involving the musculoskeletal system]Onset: 850777-23-6206MyfbpyujMfvaw connective tissue disease (3 sources)Pain of bilateral hands; Translations: [Pain in right hand]10-05-2023 EpisodicOther ear and sense organ disorders (2 sources)Pain of ear structure; Translations: [Otalgia, right ear]04-10-2024 EpisodicOther female genital disorders (2 sources)Abnormal uterine bleeding; Translations: [Abnormal uterine and vaginal bleeding, unspecified]80-46-1447SsjsjoiYlprb gastrointestinal disorders (3 sources)Diarrhea, unspecified; Translations: [Diarrhea]31-78-1349Ibkztizs Other gastrointestinal disorders (20 sources)Abdominal mass; Translations: [Intra-abdominal and pelvic swelling, mass and lump, unspecified site]Onset: 266764-77-3484TukhruwrZdgry gastrointestinal disorders (17 sources)Burning sensation; Translations: [Other specified symptoms and signs involving the digestive systemand abdomen]62-56-5354MaafuhdzJajgx gastrointestinal disorders (20 sources)Abdominal bloating; Translations: [Abdominal distension (gaseous)] Onset: 114077-39-9045GebwwfwmEgboe gastrointestinal disorders (20 sources)Constipation; Translations: [Constipation, unspecified]Onset: 147281-59-5886BjehjdjkBonar infections; including parasitic (1 source)Recurrent infectious disease; Translations: [Unspecified infectious disease]23-80-7496OqyfjszbHhorx inflammatory condition of skin (20 sources)Discoid lupus erythematosus; 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]Onset: 192587-18-3708BlidsweWttus inflammatory condition of skin (4 sources)Discoid lupus erythematosus; Translations: [DISCOID LUPUS ERYTHEMATOSUS]Onset: 72-48-2252EnnvynaJtlym inflammatory condition of skin (20 sources)Lupus erythematosus; 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] Onset: 613976-91-0079LrtabzlZyqez inflammatory condition of skin (2 sources)Lupus erythematosus tumidus; 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]03-64-8498AwtbjjcKfvjo inflammatory condition of skin (2 sources)Seborrheic dermatitis; Translations: [Other seborrheic dermatitis] 56-99-7121GlwfovjqUjwlc injuries and conditions due to external causes (1 source)Delayed healing of wound; Translations: [Other injury of unspecified body region, subsequent encounter]EpisodicOther liver diseases (20 sources)Steatosis of liver; Translations: [Fatty (change of) liver, not elsewhere classified]Onset: 254246-21-0746XvzopxpStfdb lower respiratory disease (2 sources)Snoring; Translations: [Snoring]EpisodicOther nervous system disorders (20 sources)Chronic pain syndrome; Translations: [Chronic pain syndrome]Onset: 157691-59-9182PfmprclQwzkw nervous system disorders (20 sources)Chronic pain; Translations: [Other chronic pain]04-51-4915Vkvbsht Other nervous system disorders (20 sources)Disorder of autonomic nervous system; Translations: [Disorder of the autonomic nervous system, unspecified]Onset: 693176-49-7877CqfdgvhAnjlr nervous system disorders (13 sources)Other chronic pain; Translations: [Other chronic pain]Onset: 610992-23-3142KttjgtwJrlpf nervous system disorders (1 source)Numbness; Translations: [Anesthesia of skin]73-65-6007YajfmvsuDyljh nervous system disorders (4 sources)Cold extremity; Translations: [Unspecified disturbances of skin sensation]27-90-2114NquondfiIjhdk non-traumatic joint disorders (1 source)Hypermobility syndrome; Translations: [Other specific joint derangements of unspecified joint, not elsewhere classified]73-05-9821Hcdgfab Other non-traumatic joint disorders (1 source)Other specific joint derangements of unspecified joint, not elsewhere classified; 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]Onset: 09-19-2024 ChronicOther nutritional; endocrine; and metabolic disorders (20 sources)Obesity; Translations: [Obesity, unspecified]Onset: 09-07-2022 27-92-9160YyyogfjGzyfz nutritional; endocrine; and metabolic disorders (20 sources)Body mass index 40+ - severely obese; Translations: [Morbid (severe) obesity due to excess calories]Onset: 52-91-7138XtzolriIxfrx nutritional; endocrine; and metabolic disorders (20 sources)Insulin resistance; Translations: [Insulin resistance, unspecified] Onset: 771413-56-0181LlzomdhXdvno nutritional; endocrine; and metabolic disorders (2 sources)Morbid obesity; Translations: [Morbid (severe) obesity due to excess calories]44-28-5174SkjrfwfDnzqb nutritional; endocrine; and metabolic disorders (2 sources)Morbid (severe) obesity due to excess calories; Translations: [Morbid (severe) obesity due to excess calories (Multi)]Onset: 24-63-1394HomtxzrFirzg nutritional; endocrine; and metabolic disorders (1 source)Childhood obesity; Translations: [Obesity, unspecified]03-14-2025 ChronicOther skin disorders (5 sources)Hidradenitis suppurativa; Translations: [Hidradenitis suppurativa] 40-72-1285YyqjahtwGbwwy skin disorders (4 sources)Acne vulgaris; Translations: [Acne vulgaris]34-71-1990WdriqgtvMiwxf upper respiratory disease (20 sources)Chronic pharyngolaryngitis; Translations: [Chronic laryngitis]Onset: 039730-58-6025BizkktwCgzsmza cyst (1 source)Unspecified ovarian cyst, left side; Translations: [UNSPECIFIED OVARIAN CYST LEFT SIDE]Onset: 83-12-9268QtnydmivAjxfxyzdyd and visceral atherosclerosis (2 sources)Peripheral vascular disease; Translations: [Peripheral vascular disease, unspecified]13-13-4115NikwipqIbftjlsc codes; unclassified (20 sources)Obstructive sleep apnea syndrome; Translations: [Obstructive sleep apnea (adult) (pediatric)]Onset: 47-78-7104YtrucvaGksduehi codes; unclassified (3 sources)Obstructive sleep apnea (adult) (pediatric); Translations: [Obstructive sleep apnea (adult) (pediatric)]Onset: 25-20-7888ErkpiynKxdavbgw codes; unclassified (1 source)Sleep apnea; Translations: [Sleep apnea, unspecified]Onset: 05-20-2022 70-16-9789AyfrgqfXwcdxtoe codes; unclassified (1 source)Family history of hereditary disease; Translations: [Family history of other specified conditions]EpisodicResidual codes; unclassified (1 source)Family history of malignant neoplasm of breast; Translations: [FAMILY HX MALIG NEOPLASM OF BREAST]Onset: 45-25-0359YnhugqadCcnjnfsn codes; unclassified (1 source)Family history of malignant neoplasm of digestive organs; Translations: [FAM HX MALIG NEOPLASM DIGESTIV ORGN]Onset: 85-76-3614Exyvvmdz Residual codes; unclassified (1 source)Bilateral lower limb edema; Translations: [Localized edema]07-13-2023 EpisodicResidual codes; unclassified (1 source)Finding of mouth region; Translations: [Unspecified symptoms and signs involving general sensationsand perceptions]52-50-3327IatwbqmaVtcglefg codes; unclassified (1 source)FH: Cardiovascular disease; Translations: [Family history of ischemic heart disease and other diseases of the circulatory system]03-42-8498Jgpaynmh Residual codes; unclassified (2 sources)Family history of cancer; Translations: [Family history of malignant neoplasm, unspecified]55-78-2797CiwwpmcnCwtlhvhe codes; unclassified (1 source)FH: Respiratory disease; Translations: [Family history of other diseases of the respiratory system]48-34-3958NccqojipSvkxmzkk codes; unclassified (1 source)FH: Aortic aneurysm; Translations: [Family history of ischemic heart disease and other diseases of the circulatory system]39-90-7513HphmysvzUqpvlqei codes; unclassified (2 sources)Pain; Translations: [Pain, unspecified]62-68-2183StlytrnbOguvrxng codes; unclassified (1 source)Tobacco igel03-44-7785KkvfiipgJwqalojeua arthritis and related disease (4 sources)Rheumatoid arthritis; Translations: [Rheumatoid arthritis, unspecified]Onset: 122841-98-1175TwboatkGfqq and subcutaneous tissue infections (20 sources)Pilonidal cyst; Translations: [Pilonidal cyst without abscess]Onset: 832000-20-4348NgkuxgrrYfdnzfnqllu; intervertebral disc disorders; other back problems (20 sources)Bilateral inflammation of sacroiliac joint; Translations: [Sacroiliitis, not elsewhere classified]Onset: 229410-30-0239Ltqjbmy Substance-related disorders (20 sources)Tobacco user; Translations: [Nicotine dependence, unspecified, uncomplicated]Onset: 035603-06-2125EknfdauDjbdtgav lupus erythematosus and connective tissue disorders (20 sources)Systemic lupus erythematosus; Translations: [Other organ or system involvement in systemic lupus erythematosus]Onset: 61-78-9146NijetkkLemrglo disorders (20 sources)Thyroid nodule; Translations: [Nontoxic single thyroid nodule]Onset: 774587-71-9339KlonwyaLbtamyfbviif (1 source)Supraventricular tachycardia, unspecified (CMS-HCC); Translations: [Supraventricular tachycardia, unspecified (CMS-HCC)]Onset: 07-13-2023 Unclassified (8 sources)Call Dr. Donaldson office to schedule a follow up appointment if you do not already have one scheduled Past or Other Problems Problem ClassificationProblemDateDocumented DateEpisodic/ChronicCardiac dysrhythmias (20 sources)Tachycardia, unspecified; Translations: [Tachycardia]Onset: 10-15-2021 Resolved: 02-96-5317KtkvuxhqXpij; stupor; and brain damage (20 sources)Daytime somnolence; Translations: [Somnolence]Onset: 05-20-2022 EpisodicConditions associated with dizziness or vertigo (20 sources)Dizziness; Translations: [Dizziness and giddiness]Onset: 06-01-2023 30-86-8482QrloecboZlrvuxxuri and other anemia (20 sources)Megaloblastic anemia due to vitamin B>12< deficiency; Translations: [Other megaloblastic anemias, not elsewhere classified]Onset: 03-04-2022 48-86-0881KlktqzohUsmztimfsp and other anemia (1 source)Anemia, unspecified; Translations: [ANEMIA UNSPECIFIED]Onset: 35-24-6273QukrpazzFeijjvxftv and other anemia (20 sources)Anemia; Translations: [Anemia, unspecified]Onset: 03-11-2022 65-45-5839BqrserkwScrtovyukt and other anemia (20 sources)Iron deficiency anemia; Translations: [Other iron deficiency anemias]Onset: 126595-96-4872OixrvfrfIglcmympur and other anemia (1 source)Other megaloblastic anemias, not elsewhere classified; Translations: [Megaloblastic anemia due to vitamin B12 deficiency]Onset: 35-42-3051Gmutupxk Deficiency and other anemia (1 source)Other iron deficiency anemias; Translations: [Other iron deficiency anemia]Onset: 14-31-0730FjqwdvpnPhfthxhq mellitus without complication (20 sources)Increased glucose level; Translations: [Other abnormal glucose] Onset: 36-42-7790XlfyxadfLjcjtjcg of mouth; excluding dental (20 sources)Oral lesion; Translations: [Unspecified lesions of oral mucosa] Onset: 110439-44-7450NpqboshhR Codes: Fall (1 source)Fall on same level from slipping, tripping and stumbling without subsequent striking against object, initial encounter; Translations: [FALL SAME LVL SLIP NO STRK OBJ INIT]Onset: 70-92-6799OcgesqalLkhjmxng; including migraine (20 sources)Headache; Translations: [Nonintractable episodic headache]Onset: 341619-85-6602XgwmxsmoFvbvppqoym infection (20 sources)Clostridium difficile diarrhea; Translations: [Enterocolitis due to Clostridium difficile, not specified as recurrent]Onset: EpisodicJoint disorders and dislocations; trauma-related (1 source)Unspecified subluxation of right patella, initial encounter; Translations: [UNS SUBLUXATION RT PATELLA INITIAL]Onset: 67-01-6322Pfynhnap Lymphadenitis (20 sources)Lymphadenopathy; Translations: [Enlarged lymph nodes, unspecified] Onset: 404119-28-7218MqrbhbnnBycsphr and fatigue (4 sources)Malaise and fatigue; Translations: [Other malaise]Onset: 11-29-2024 20-15-0415PkjnwwhmQhgczwdzepx deficiencies (20 sources)Cobalamin deficiency; Translations: [Deficiency of other specified B group vitamins]Onset: 42-92-6902IkbgrfcjOuwko aftercare (20 sources)Drug therapy finding; Translations: [Other 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) drug therapy]Onset: 97-15-0997PeabdedbWszmz aftercare (20 sources)H/O: high risk medication; Translations: [Other 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) drug therapy]Onset: 092604-00-6647DgwvsqdnIrmez aftercare (1 source)Other correction (current) drug therapy; Translations: [OTH COMMUNICATIONS SCIENTIST 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 THERAPY]Onset: 61-43-5259GpypgmcbPchbu aftercare (20 sources)Long-term current use of systemic steroid; Translations: [[facility] (current) use of systemic steroids]Onset: 383771-28-5909YhlueogjBjiux connective tissue disease (20 sources)Pain in toe; Translations: [Pain in right toe(s)]Onset: 03-05-2021 EpisodicOther connective tissue disease (20 sources)Fibromyalgia; Translations: [Fibromyalgia]Onset: 28-03-4482Zngziuat Other connective tissue disease (20 sources)Other symptoms and signs involving the musculoskeletal system; Translations: [Other musculoskeletalsymptoms referable to limbs]Onset: 643086-96-4685UtufsuogLeoxf connective tissue disease (20 sources)Enthesopathy of hip region; Translations: [Other specified enthesopathies of unspecified lower limb, excluding foot]Onset: 07-06-2023 40-96-7082SsswtkdjDlccz connective tissue disease (20 sources)Muscle pain; Translations: [Myalgia, unspecified site]Onset: 438358-14-5626LbcgyjadWfipm connective tissue disease (2 sources)Pain in lower limb; Translations: [Pain in leg, unspecified] 77-71-0126UhkylmujNcyhi gastrointestinal disorders (20 sources)Diarrhea; Translations: [Diarrhea, unspecified]Onset: 03-07-2024 90-14-0634RyzlblysDbwwe hematologic conditions (20 sources)ESR raised; Translations: [Elevated erythrocyte sedimentation rate] Onset: 18-63-9055ZsphhlpdFlqrx hematologic conditions (9 sources)Elevated erythrocyte sedimentation rate; Translations: [ELEVATED ERYTHROCYTE SED RATE]Onset: 03-05-2021 Resolved: 86-27-4429QdozuhcePkdzw infections; including parasitic (20 sources)Disorder due to infection; Translations: [Personal history of other infectious and parasitic diseases]Onset: 531148-92-7617YhzcpmqtNrorc infections; including parasitic (1 source)Personal history of other infectious and parasitic diseases; Translations: [Frequent infections]Onset: 52-70-0387AteuprfdGlvid injuries and conditions due to external causes (3 sources)Unspecified injury of right lower leg, initial encounter; Translations: [UNS INJURY RT LOWER LEG INITIAL ENC]Onset: 78-25-3817Fwtuclab Other lower respiratory disease (20 sources)Dyspnea; Translations: [Shortness of breath]Onset: 07-13-2023 61-31-2440HvfourlaSkiyh lower respiratory disease (2 sources)Shortness of breath; Translations: [Shortness of breath]Onset: 97-41-6404WndkskhxYhrvo nervous system disorders (20 sources)Ataxia; Translations: [Ataxia, unspecified]Onset: 05-31-2014 00-26-6389KdnmwgrpXwlxm nervous system disorders (20 sources)Skin sensation disturbance; Translations: [Unspecified disturbances of skin sensation]Onset: 979033-70-5439UtqgqblzKhfwn nervous system disorders (20 sources)Paresthesia; Translations: [Paresthesia of skin]Onset: 11-08-2023 45-21-5388KhjmxkrhCddwj non-traumatic joint disorders (20 sources)Hip pain; Translations: [Pain in unspecified hip]Onset: 07-06-2023 07-53-8504QsjkswfzPmkkb non-traumatic joint disorders (5 sources)Pain in right knee; Translations: [PAIN IN RIGHT KNEE]Onset: 07-44-5477MahgkpkgUitqm non-traumatic joint disorders (1 source)Effusion, right knee; Translations: [EFFUSION RIGHT KNEE]Onset: 31-27-2879GcjmxlzsOozni non-traumatic joint disorders (20 sources)Bilateral wrist pain; Translations: [Pain in right wrist]Onset: 137589-86-4119SubotrumKkskw nutritional; endocrine; and metabolic disorders (20 sources)Obese class II; Translations: [Obesity, unspecified]Onset: 03-09-2022 Resolved: 798792-06-3766CtovboqVzcea nutritional; endocrine; and metabolic disorders (20 sources)Body mass index 30+ - obesity; Translations: [Obesity, unspecified] Onset: 05-31-2014 Resolved: 275626-79-3690HqpgemiWutok nutritional; endocrine; and metabolic disorders (20 sources)History of nutritional deficiency; Translations: [Personal history of other endocrine, nutritional and metabolic disease]Onset: 10-05-2023 27-90-1402RkxeueddNthsq screening for suspected conditions (not mental disorders or infectious disease) (20 sources)Elevated C-reactive protein; Translations: [Elevated C-reactive protein (CRP)]Onset: 53-66-5837IlxbsztmSaqut skin disorders (20 sources)Eruption; Translations: [Rash and other nonspecific skin eruption] Onset: 98-01-9557EmdjuzjrXhquq skin disorders (20 sources)Loss of hair; Translations: [Nonscarring hair loss, unspecified] Onset: 80-63-6437GoswsrxbVtaee upper respiratory disease (20 sources)Hoarse; Translations: [Dysphonia]Onset: 550659-75-9428Apheuzaa Residual codes; unclassified (20 sources)FH: Crohn's disease; Translations: [Family history of other diseases of the digestive system]Onset: 40-15-0585WwkphohqEsaikspa codes; unclassified (3 sources)Flushing; Translations: [FLUSHING]Onset: 10-15-2021 Resolved: 54-78-1631IhzkxqsbXaxddhgv codes; unclassified (1 source)Family history of ischemic heart disease and other diseases of the circulatory system; Translations: [Family history of aortic aneurysm]Onset: 98-87-3421VjbzgnjoTlrpobcxdtg; intervertebral disc disorders; other back problems (20 sources)Chronic low back pain; Translations: [Lumbago with sciatica, left side]Onset: 69-63-3771KaaftkfoZvsmwlcaljxg (2 sources)Onset: 07-13-2023 Resolved: 269062-98-9532Jgbuhjhtjiaz (1 source)Supraventricular tachycardia, unspecified (CMS-HCC); Translations: [Supraventricular tachycardia, unspecified (CMS-HCC)]Onset: 97-90-0522Fevnc infection (20 sources)Cytomegaloviral disease, unspecified; 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]Onset: 09-11-2021 Resolved: 93-81-4007Qurzhdnm Results Test NameValueInterpretationReference RangeFacilityUS Thyroid glandon 03-22-[address] [address] Ultrasound Report Signed Patient: ARIADNA HALEY MR#: [id number] : 1980 Acct:[id number] Age/Sex: 44 / F ADM Date: 03/22/25 Loc: US Attending Dr: Gordo Barfield M.D. Ordering Physician: Gordo Barfield M.D. Date of Service: 03/22/25 Procedure(s): US thyroid Accession Number(s): [id number] cc: GAY DE LA TORRE ; Gordo Barfield M.D. [address] [id number] Patient Name: ARIADNA HALEY MRN: [id number] date: 1980 Sex: F Assigned Patient Location: US Current Patient Location: [facility] Accession/Order Number: [id number] Exam Date: 03/22/2025 09:30 Report Date: 03/22/2025 [...] Nelson M.D. 03/22/2025 11:38 AM Dictation Location: [place] [address] Electronically authenticated by: [id number] Y Date: 03/22/2025 11:38 Dictated By: Simin Nelson M.D. Signed By: 03/22/25 1141 DD/ 1138 TD/TT: Lead Assistant Manager:DARLENEHRadiology, Radiologist, - 03/22/[address] [address] Ultrasound Report Signed Patient: ARIADNA HALEY MR#: [id number] : 1980 Acct:[id number] Age/Sex: 44 / F ADM Date: 03/22/25 Loc: US Attending Dr: Gordo Barfield M.D. Ordering Physician: Gordo Barfield M.D. Date of Service: 03/22/25 Procedure(s): US thyroid Accession Number(s): [id number] cc: GAY DE LA TORRE ; Gordo Barfield M.D. The [place] [id number] Patient Name: ARIADNA HALEY MRN: [id number] date: 1980 Sex: F Assigned Patient Location: US Current Patient Location: RAD Accession/Order Number: [id number] Exam Date: 03/22/2025 09:30 Report Date: 03/22/2025 [...] Nelson M.D. 03/22/2025 11:38 AM Dictation Location: [place] [address] Electronically authenticated by: [id number] Y Date: 03/22/2025 11:38 Dictated By: Simin Nelson M.D. Signed By: 03/22/25 1141 DD/ 1138 TD/TT: Lead Assistant Manager: MABLE HealthcareRadiology Study observation (narrative)MABLE HealthcareUS Thyroid glandOrdered By: Radiologist Radiology on 82-19-5737TDWF Healthcare Work Phone: cbc W Auto Differential panel (Bld)on 03-21-2025 Basophils (Bld) [#/Vol]0.10 10*3/uLNormal<0.11CSelect Medical Specialty Hospital - [facility] SouthCommymichigan medical center sault on above:Order Comment: Specimen Type: BLOOD SPECIMENOrdering Facility: [facility] Address:[address] [place] [address] Performed By: #### [id number] ####[facility] LABCLIA [id number] [place], [place] [address]Twkagjasf/100 WBC (Bld)0.8 % NormalKettering Memorial Hospital on above:Order Comment: Specimen Type: BLOOD SPECIMENOrdering Facility: [facility] Address:[address] [place], [place] [address]Performed By: #### [id number] ####[facility] LABCLIA [id number] [place] [address] Differential cell count method Nom (Bld)AutoNormalClevelOur Community Hospital Comment on above:Order Comment: Specimen Type: BLOOD SPECIMENOrdering Facility: [facility] Address:[address] [place] [address] Performed By: #### [id number] ####[facility] LABCLIA [id number] [place], [place] [address]Nbenihyooev (Bld) [#/Vol]0.14 10*3/uLNormal<0.46[facility] on above:Order Comment: Specimen Type: BLOOD SPECIMENOrdering Facility: [facility] Address:[address] [place], [place] [address]Performed By: #### [id number] ####[facility] LABCLIA [id number] [place], [place] [address]Tgkexanqkgr/100 WBC (Bld)1.1 %NormalKettering [facility]:Order Comment: Specimen Type: BLOOD SPECIMENOrdering Facility: [facility] Address:[address] [place], [place] [address]Performed By: #### 95788-9 ####[facility] LABIA [id number] [place], [place] [address]Jkfykvgbskf distribution width (RBC) [Ratio]14.1 %Qcriui86.5-15.0[facility] on above: Order Comment: Specimen Type: BLOOD SPECIMENOrdering Facility: [facility] Address:[address] [place], [place] [address]Performed By: #### 27166- 8 ####[facility] LABCLIA [id number] [place], [place] [address]Sxziasmaaz (Bld) [Volume fraction]44.4 %Lnjawj60.0-46.0 [facility] on above:Order Comment: Specimen Type: BLOOD SPECIMENOrdering Facility: [facility] Address:[address] [place], [place] [address]Performed By: #### 58545-5 ####[facility] LABIA [id number] [place], [place] [address]Rltfmhkdkx (Bld) [Mass/Vol]14.9 g/kQWmaaln98.5-15.5CC[facility] on above: Order Comment: Specimen Type: BLOOD SPECIMENOrdering Facility: [facility] Address:[address] [place], [place] [address]Performed By: #### 31014- 8 ####[facility] LABIA [id number] [place], [place] [address]Tkreotmp granulocytes (Bld) [#/Vol]0.16 10*3/uLHigh<0.10 [facility] on above:Order Comment: Specimen Type: BLOOD SPECIMENOrdering Facility: [facility] Address:[address] [place], [place] [address]Performed By: #### 65852-9 ####[facility] LABCLIA [id number] [place], [place] [address]Cksdlefe granulocytes/100 WBC (Bld)1.2 %NormalKettering Memorial Hospital on above: Order Comment: Specimen Type: BLOOD SPECIMENOrdering Facility: [facility] Address:[address] [place], [place] [address]Performed By: #### 84038- 8 ####[facility] LABCLIA [id number] [place], [place] [address]Qxajrnfbeqk (Bld) [#/Vol]1.94 10*3/uLNormal1.00-4.00 [facility] on above:Order Comment: Specimen Type: BLOOD SPECIMENOrdering Facility: [facility] Address:[address] [place], [place] [address]Performed By: #### 18586-2 ####[facility] LABIA [id number] [place], [place] [address]Xsjfkdhecxx/100 WBC (Bld)14.9 %NormalKettering Memorial Hospital on above:Order Comment: Specimen Type: BLOOD SPECIMENOrdering Facility: [facility] Address:[address] [place], [place] [address]Performed By: #### 01842-6 ####[facility] LABIA [id number] [place], [place] [address]FGP (RBC) [Entitic mass]31.8 gwOmwrlq62.0-34.0[facility] on above:Order Comment: Specimen Type: BLOOD SPECIMENOrdering Facility: [facility] Address:[address] [place], [place] [address]Performed By: #### 69638-1 ####[facility] LABCLIA [id number] [place], [place] [address]KTWS (RBC) [Mass/Vol]33.6 g/xNJxnwfv88.5-36.0[facility] on above: Order Comment: Specimen Type: BLOOD SPECIMENOrdering Facility: [facility] Address:[address] [place], [place] [address]Performed By: #### 98797- 8 ####[facility] LABCLIA [id number] [place], [place] [address]IZF (RBC) [Entitic vol]94.9 nUJaelad20.0-100.0[facility] on above:Order Comment: Specimen Type: BLOOD SPECIMENOrdering Facility: [facility] Address:[address] [place], [place] [address]Performed By: #### 74535-2 ####[facility] LABCLIA [id number] [place], [place] [address]Dyuaausmx (Bld) [#/Vol]0.94 10*3/uLHigh<0.87[facility] on above:Order Comment: Specimen Type: BLOOD SPECIMENOrdering Facility: [facility] Address:[address] [place], [place] [address]Performed By: #### 60183- 8 ####[facility] LABCLIA [id number] [place], [place] [address]Okgseciah/100 WBC (Bld)7.2 %NormalKettering [facility] Hospital on above:Order Comment: Specimen Type: BLOOD SPECIMENOrdering Facility: [facility] Address:[address] [place], [place] [address]Performed By: #### 99277-2 ####[facility] LABCLIA [id number] [place], [place] [address]Ltuffffzthx (Bld) [#/Vol]9.74 10*3/uLHigh1.45-7.50[facility] on above:Order Comment: Specimen Type: BLOOD SPECIMENOrdering Facility: [facility] Address:[address] [place], [place] [address]Performed By: #### 16281-8 ####[facility] LABCLIA [id number] [place], [place] [address]Qklczkycizy/100 WBC (Bld)74.8 %NormalKettering [facility] on above:Order Comment: Specimen Type: BLOOD SPECIMENOrdering Facility: [facility] Address:[address] [place], [place] [address]Performed By: #### 32849-7 ####[facility] LABCLIA [id number] [place], [place] [address]Wborwuavh RBC (Bld) [#/Vol] 10*3/uLNormal<0.01[facility] on above:Order Comment: Specimen Type: BLOOD SPECIMENOrdering Facility: [facility] Address:[address] [place], [place] [address]Performed By: #### 42123-2 ####[facility] LABCLIA [id number] [place], [place] [address]Krjouxyun RBC/100 WBC (Bld) [Ratio]0.0 /100 WBCNormal [facility] on above:Order Comment: Specimen Type: BLOOD SPECIMENOrdering Facility: [facility] Address:[address] [place], [place] [address]Performed By: #### 20339-2 ####[facility] LABCLIA [id number] [place], [place] [address]Muavwcwc mean volume (Bld) [Entitic vol]10.3 fLNormal9.0-12.7CCoshoct[facility] on above:Order Comment: Specimen Type: BLOOD SPECIMENOrdering Facility: [facility] Address:[address] [place] [address] Performed By: #### 76285-6 ####[facility] LABCLIA [id number] [place], [place] [address]Pqwnkmerv (Bld) [#/Vol]319 10*3/uUYmixte996-036KkxyubgvvKettering [facility] Hospital on above:Order Comment: Specimen Type: BLOOD SPECIMENOrdering Facility: [facility] Address:[address] [place], [place] [address]Performed By: #### 12863-0 ####[facility] LABCLIA [id number] [place], [place] [address]PQY (Bld) [#/Vol]4.68 10*6/uLNormal3.90-5.20[facility] on above:Order Comment: Specimen Type: BLOOD SPECIMENOrdering Facility: [facility] Address:[address] [place], [place] [address]Performed By: #### 59494-8 ####[facility] LABCLIA [id number] [facility] [address]EYR (Bld) [#/Vol]13.02 10*3/uLHigh3.70-11.00[facility] on above: Order Comment: Specimen Type: BLOOD SPECIMENOrdering Facility: [facility] Address:[address] [place], [place] [address]Performed By: #### 28059- 8 ####[facility] LABCLIA [id number] [facility] MEDICAL CENTERGalMINDEN [place], [place] [address]PQAAEYvw 90-20-9011VKXNMOZapubuBxxhdwthdBarnesville Hospital metabolic 2000 panelon 03-36-6681Gerlkir [Mass/Vol]4.3 g/dLNormal 3.9-4.9CCosho[facility] on above:Order Comment: Specimen Type: BLOOD SPECIMENOrdering Facility: [facility] Address:[address] [place], [place] [address]Performed By: #### 26587-9 ####[facility]APH[facility] LABCLIA [id number] [facility], [place] [address]XKM [Catalytic activity/Vol]80 U/BCcmmfc82-866ZmxtzoghtKettering [facility] on above:Order Comment: Specimen Type: BLOOD SPECIMENOrdering Facility: [facility] Address:[address] [place], [place] [address]Performed By: #### 15843-9 ####[facility] LABCLIA [id number] [facility]ACOP[facility]INGS HOSPITALAMAYAMINDEN [place], [place] [address]TEM [Catalytic activity/Vol]37 U/LNormal7-38[facility] on above:Order Comment: Specimen Type: BLOOD SPECIMENOrdering Facility: [facility] Address:[address] [place], [place] [address]Performed By: #### 06012-5 ####[facility]APH[facility] LABCLIA [id number] [facility] [place] [place] [address]Ltgwe gap [Moles/Vol]15 mmol/LNormal8-15[facility] on above:Order Comment: Specimen Type: BLOOD SPECIMENOrdering Facility: [facility] Address:[address] [place], [place] [address]Performed By: #### 38269- 8 ####[facility] LABCLIA [id number] [facility]IVEREAST [facility] MEDICAL CENTERGalMINDEN [place], [place] [address]TPQ [Catalytic activity/Vol]18 U/SNwsgtb65-87FqzjqvoqhKettering [facility] on above:Order Comment: Specimen Type: BLOOD SPECIMENOrdering Facility: [facility] Address:[address] [place], [place] [address]Performed By: #### 61206-4 ####[facility] LABCLIA [id number] [facility] PERESMAGGYCOPPER SPRINGS HOSPITALAMAYAM[place], [place] [address]Owdvgxlod [Mass/Vol]0.2 mg/dLNormal0.2-1.3CCoshoct[facility] on above:Order Comment: Specimen Type: BLOOD SPECIMENOrdering Facility: [facility] Address:[address] [place], [place] [address]Performed By: #### 34939- 8 ####[facility] LABCLIA [id number] [facility] [address]Pwwtlnr [Mass/Vol]10.0 mg/dLNormal8.5-10.2CCoshoct[facility] on above:Order Comment: Specimen Type: BLOOD SPECIMENOrdering Facility: [facility] Address:[address] [place], [place] [address]Performed By: #### 02889-0 ####[facility] LABCLIA [id number] [facility] [place] [address]Kpzwphdc [Moles/Vol]104 mmol/DHjohdc29-101JxswlfzjxKettering [facility] on above: Order Comment: Specimen Type: BLOOD SPECIMENOrdering Facility: [facility] Address:[address] [place] [address]Nkjnqlgzx By: #### 57533- 8 ####[facility] LABCLIA [id number] [place], [place] [address]MV8 [Moles/Vol]22 mmol/WNqxtnp27-86VqqfvyoynKettering [facility] on above:Order Comment: Specimen Type: BLOOD SPECIMENOrdering Facility: [facility] Address:[address] [place], [place] [address]Performed By: #### 79526-8 ####[facility] LABCLIA [id number] [place], [place] [address]Ljyflckkie [Mass/Vol]0.51 mg/dL Low0.58-0.96[facility] on above:Order Comment: Specimen Type: BLOOD SPECIMENOrdering Facility: [facility] Address:[address] [place], [place] [address]Performed By: #### 65178-4 ####[facility] LABCLIA [id number] [place] [address] eGFRcr SerPlBld CKD-EPI 1774838 mL/min/1.73m???Normal>=60[facility] on above:Order Comment: Specimen Type: BLOOD SPECIMENOrdering Facility: [facility] Address:[address] [place], [place] [address]Result Comment: Estimated Glomerular Filtration Rate (eGFR) is [...] accurately reflect actual GFR. Performed By: #### 18146-4 ####[facility] LABCLIA [id number] [place], [place] [address]Afvtawb [Mass/Vol]193 mg/dLHigh 74-99[facility] on above:Order Comment: Specimen Type: BLOOD SPECIMENOrdering Facility: [facility] Address:[address] [place], [place] [address]Result Comment: The [place] [employer] (ADA) provides guidance for cutoff [...] Standards of Medical Care in Diabetes 2016, [place] [employer]. Diabetes Care. 2016.39(Suppl 1).Performed By: #### 76482-2 ####[facility] LABCLIA [id number] [place], [place] [address]Znkwpgwad [Moles/Vol]4.0 mmol/LNormal3.7-5.1CCosho[facility] on above:Order Comment: Specimen Type: BLOOD SPECIMENOrdering Facility: [facility] Address:[address] [place], [place] [address]Performed By: #### 96246-5 ####[facility] LABCLIA [id number] [place], [place] [address]Nonziqp [Mass/Vol]7.4 g/dLNormal6.3-8.0[facility] on above:Order Comment: Specimen Type: BLOOD SPECIMENOrdering Facility: [facility] Address:[address] [place], [place] [address]Performed By: #### 36484- 8 ####[facility] LABCLIA [id number] [place], [place] [address]Eccict [Moles/Vol]141 mmol/GWgoyor926-062UczgqxvvbKettering [facility] Hospital on above:Order Comment: Specimen Type: BLOOD SPECIMENOrdering Facility: [facility] Address:[address] [place], [place] [address]Performed By: #### 48635-6 ####[facility] LABCLIA [id number] [place], [place] [address]Ikhx nitrogen [Mass/Vol]16 mg/dLNormal7-21[facility] on above:Order Comment: Specimen Type: BLOOD SPECIMENOrdering Facility: [facility] Address:[address] [place], [place] [address]Performed By: #### 40896-2 ####[facility] LABCLIA [id number] [place], [place] [address]IJQTQTJXZTSAKWE,IGG,IGA,IGMon 43-85-3098IjE [Mass/Vol]167 mg/dNEovxhv60-331MabvzhhqmKettering [facility] on above:Order Comment: Specimen Type: BLOOD SPECIMENOrdering Facility: [facility] Address:[address] [place], [place] [address]Performed By: #### SERIMM ####[facility] LABCLIA [id number] [place] [address] [place] AMERICAIgG [Mass/Vol]579 mg/cWMwn283-6529HcmuxsiycKettering [facility] on above:Order Comment: Specimen Type: BLOOD SPECIMENOrdering Facility: [facility] Address:[address] [place], [place] [address]Performed By: #### SERIMM ####[facility] LABCLIA [id number] [place] [id number] [place] AMERICAIgM [Mass/Vol]391 mg/dL Scmt90-633LsgjwxizpKettering [facility] on above:Order Comment: Specimen Type: BLOOD SPECIMENOrdering Facility: [facility] Address:[address] [place], [place] [address]Performed By: #### SERIMM ####[facility] LABCLIA [id number] [place] [address] [place] AMERICACNPNon 03-03-0921MSPLGximqyXepgbdqbs Clinic ClevelandWOUND CULTUREon 90-99-9246JJORL CULTURESPECIMEN DESCRIPTION WOUND SPECIAL REQUESTS RIGHT NIPPLE DISCHARGE GRAM SMEAR NO * Result Note: WBC'S SEEN * * Result Note: NO ORGANISMS SEEN * COLONY COUNT LIGHT GROWTH CULTURE STAPHYLOCOCCUS EPIDERMIDIS * Result Note: Testing performed at [place] [address] * REPORT STATUS 03/18/2025 * Result Note: FINAL * ORGANISM STAPHYLOCOCCUS EPIDERMIDIS * Result Note: STAPHYLOCOCCUS EPIDERMIDIS * METHOD ELPIDIO CLINDAMYCIN >=8 RESISTANT ERYTHROMYCIN >=8 RESISTANT GENTAMICIN <=0.5 SUSCEPTIBLE PENICILLIN G >=0.5 RESISTANT RIFAMPIN <=0.5 SUSCEPTIBLE TETRACYCLINE 2 SUSCEPTIBLE TRIMETH-SULFA 80 RESISTANT VANCOMYCIN 1 SUSCEPTIBLE LEVOFLOXACIN >=8 RESISTANT OXACILLIN >=4 RESISTANT LINEZOLID 2 SUSCEPTIBLE INDUCIBLE CLINDAMYCIN RESISTANCE NEGATIVENoNationwide Children's HospitalComment on above:Performed By: #### WDC #### [place] [address] Testing performed at [place] [id number] CULTUREon 75-21-4358WLQAW CULTURESPECIMEN DESCRIPTION WOUND SPECIAL REQUESTS LEFT NIPPLE DISCHARGE GRAM SMEAR NO * Result Note: WBC'S SEEN * * Result Note: NO ORGANISMS SEEN * CULTURE NO GROWTH 2 DAYS * Result Note: Testing performed at [place] [address] * REPORT STATUS 03/16/2025 * Result Note: FINAL *[facility] HospitalComment on above:Performed By: #### WDC #### Testing performed at [place] [id number] Testing performed at [address] [address]Frifr Cultureon 50-68-1691Dffkcqtq identified Cx Nom (U)<9,000 colonies/ml mixed bacterial skin contaminants 2 Days PERFORMED BY: [place] [address] PATHOLOGIST LABORATORY CHIEF TIM FOOTE M.D.[facility] Physician GroupComment on above: Performed By: #### CUU #### [place] [address] USAUrine cultureOrdered By: Gay De La Torre on 03-09-2025 Bacteria identified Cx Nom (U)2 [facility] Medical CenterUrine Cultureon 17-14-2097Jgagplxx identified Cx Nom (U)ORGANISM: Christine albicans (O:CANALB) Lometa Count >100,000 PERFORMED BY: [place] [address] PATHOLOGIST LABORATORY CHIEF ITM FOOTE M.D.[facility] Physician GroupComment on above: Performed By: #### CUU #### [place] [address] USAUrine cultureOrdered By: Jose Perez on 03-03-2025 Bacteria identified Cx Nom (U)Christine albicansAbnoClermont County HospitalAerobic Cultureon 06-06-1908Zgnmpvr CultureComment pilonidal abscess culture ORGANISM: Serratia marcescens (O:SERMAR) Quantity of Growth Light Growth Comment pilonidal abscess culture ORGANISM: Prevotella species (O:PRESP) Comments . Quantity of Growth Light Growth Send Test to Ref. Lab Sent to [facility] for CHRISTIAN ID Identification performed at: [place] [employer] [id number] Assistant Analyst: Doyle Mendenhall PhD, Phone: [phone] Please contact Microbiology within 7 days if [...] RESISTANT TO ALL B-LACTAM DRUGS. PERFORMED BY: [facility] [address] [place] [address] PATHOLOGIST LABORATORY CHIEF TIM FOOTE M.D.NormalShorepoint Health Punta Gorda Physician GroupComment on above: Performed By: #### AERC #### [facility] [address] [place] [address] USAAerobic cultureOrdered By: Terence Blum on 03-02-2025 Bacteria identified Aer cx Nom (Unsp spec)Serratia marcescensAbnoClermont County HospitalGram stain microscopyOrdered By: Terence Blum on 96-76-0404Szidgiyklmn observation Gram stain Nom (Unsp spec)[facility] Medical CenterLon 03-02-2025L Specimen: [id number] Received: 03/05/25 Status: BAIRON Garcia Num: [id number] Spec Type: Surgical Subm Dr: Terence Blum MD Tissues: A Pilonidal Cyst (PRODUCT OF DEBRIDEMENT) Procedures: HE/2, Gross/Micro L3 Age/ Patient Sex Location Account Attending Physician Ariadna Haley 44/F [place] [id number] Terence Blum MD SPEC NUM: [id number] RECD: 03/05/25 STATUS: BAIRON YON NUM: [id number] EDITA: 03/02/[address]: Terence Blum MD ENTERED: 03/05/25 [facility] [address]: DANIELLA TYPE: Surgical DEPT: S ENTERED BY: [id number] RECV BY: [id number] ORDERED: HE/2, Gross/Micro L3 ORDERED: HE/2, Gross/Micro [...] each specimen submitted in A2. (2, ns, [id number] A) CPT Codes 55619 Specimen: [id number] Received: 03/05/25 Status: BAIRON Garcia Num: [id number] Spec Type: Surgical Subm Dr: Terence Blum MD Tissues: A Pilonidal Cyst (PRODUCT OF DEBRIDEMENT) Procedures: HE/Twan, Gross/Micro L3 Patient: Ariadna Haley [id number] (Continued) Signed (signature on file) Merry Grajeda MD 03/06/25 [address] [facility] Physician GroupUrine Cultureon 10-72-0841Pwrhhexk identified Cx Nom (U)20,000 colonies/ml mixed bacterial skin contaminants including mixed gram negative bacilli - 2 Days PERFORMED BY: [facility] [address] [facility] [place] [address] PATHOLOGIST LABORATORY CHIEF TIM FOOTE M.D.[facility] Physician GroupComment on above: Performed By: #### CUU #### [facility] [address] [place] [address] USAUrine cultureOrdered By: Mathew Ji on 02-26-2025 Bacteria identified Cx Nom (U)bacilli - [address] [facility] CBC W Auto Differential panel (Bld)on 36-68-6564Pupejbkdw (Bld) [#/Vol]0.09 10*3/uLNormal<0.11CCoshoct[facility] on above:Order Comment: Specimen Type: BLOOD SPECIMENOrdering Facility: [facility] Address:[address] [place], [place] [address]Performed By: #### 17414-9 ####[facility] LABCLIA [id number] [place], [place] [address]Lphxvmnls/100 WBC (Bld)0.7 %NormalTuscarawas HospitalComment on above:Order Comment: Specimen Type: BLOOD SPECIMENOrdering Facility: [facility] Address:[address] [place], [place] [address]Performed By: #### 12142-4 ####[facility] LABCLIA [id number] [place], [place] [address]Fslntalgzrid cell count method Nom (Bld)AutoNormalClevelOur Community HospitalComment on above:Order Comment: Specimen Type: BLOOD SPECIMENOrdering Facility: [facility] Address:[address] [place], [place] [address]Performed By: #### 83910-8 ####[facility] LABCLIA [id number] [place], [place] [address]Jgsrmdvoxfq (Bld) [#/Vol]0.11 10*3/uLNormal<0.46[facility] on above:Order Comment: Specimen Type: BLOOD SPECIMENOrdering Facility: [facility] Address:[address] [place], [place] [address]Performed By: #### 72892-5 ####[facility] LABIA [id number] [place], [place] [address]Vlaophpagnp/100 WBC (Bld)0.8 %NormalKettering Memorial Hospital on above:Order Comment: Specimen Type: BLOOD SPECIMENOrdering Facility: [facility] Address:[address] [place], [place] [address]Performed By: #### 88253-2 ####[facility] LABCLIA [id number] [place], [place] [address]Virvnixaoyh distribution width (RBC) [Ratio]14.3 %Normal 11.5-15.0[facility] on above:Order Comment: Specimen Type: BLOOD SPECIMENOrdering Facility: [facility] Address:[address] [place], [place] [address]Performed By: #### 90694-5 ####[facility] LABCLIA [id number] [place] [address] Hematocrit (Bld) [Volume fraction]46.0 %Lvuxfj54.0-46.0[facility] on above:Order Comment: Specimen Type: BLOOD SPECIMENOrdering Facility: [facility] Address:[address] [place], [place] [address]Performed By: #### 39561-4 ####[facility] LABCLIA [id number] [place], [place] [address]Wsgckimpcf (Bld) [Mass/Vol]15.1 g/pDDxvksg61.5-15.5CCoshocton [facility] Center on above:Order Comment: Specimen Type: BLOOD SPECIMENOrdering Facility: [facility] Address:[address] [place], [place] [address]Performed By: #### 58443-9 ####[facility] LABCLIA [id number] [place], [place] [address]Cxdurrlm granulocytes (Bld) [#/Vol]0.21 10*3/uLHigh<0.10 [facility] on above:Order Comment: Specimen Type: BLOOD SPECIMENOrdering Facility: [facility] Address:[address] [place], [place] [address]Performed By: #### 38380-3 ####[facility] LABCLIA [id number] [place], [place] [address]Mwgrxbtt granulocytes/100 WBC (Bld)1.6 %[facility] on above: Order Comment: Specimen Type: BLOOD SPECIMENOrdering Facility: [facility] Address:[address] [place], [place] [address]Performed By: #### 49263- 8 ####[facility] LABCLIA [id number] [place], [place] [address]Hqrkdgmqhrw (Bld) [#/Vol]1.89 10*3/uLNormal1.00-4.00 [facility] on above:Order Comment: Specimen Type: BLOOD SPECIMENOrdering Facility: [facility] Address:[address] [place], [place] [address]Performed By: #### 33919-2 ####[facility] LABIA [id number] [place], [place] [address]Rkdtbpeceaj/100 WBC (Bld)14.4 %[facility] on above:Order Comment: Specimen Type: BLOOD SPECIMENOrdering Facility: [facility] Address:[address] [place], [place] [address]Performed By: #### 95727-9 ####[facility] LABCLIA [id number] [place], [place] [address]WBL (RBC) [Entitic mass]31.7 abKhxizf62.0-34.0[facility] on above:Order Comment: Specimen Type: BLOOD SPECIMENOrdering Facility: [facility] Address:[address] [place], [place] [address]Performed By: #### 90050-2 ####[facility] LABCLIA [id number] [place], [place] [address]QWEX (RBC) [Mass/Vol]32.8 g/nLRrvafr17.5-36.0[facility] on above: Order Comment: Specimen Type: BLOOD SPECIMENOrdering Facility: [facility] Address:[address] [place], [place] [address]Performed By: #### [id number]- 8 ####[facility] LABCLIA [id number] [place] [address]TKE (RBC) [Entitic vol]96.4 lJAwqjqe01.0-100.0[facility] on above:Order Comment: Specimen Type: BLOOD SPECIMENOrdering Facility: [facility] Address:[address] [place], [place] [address]Performed By: #### 16468-9 ####[facility] LABCLIA [id number] [place], [place] [address]Xzjqaaktb (Bld) [#/Vol]0.92 10*3/uLHigh<0.87[facility] on above:Order Comment: Specimen Type: BLOOD SPECIMENOrdering Facility: [facility] Address:[address] [place], [place] [address]Performed By: #### 86895- 8 ####[facility] LABCLIA [id number] [place], [place] [address]Lrdxmxmkx/100 WBC (Bld)7.0 %NormalKettering Memorial Hospital on above:Order Comment: Specimen Type: BLOOD SPECIMENOrdering Facility: [facility] Address:[address] [place], [place] [address]Performed By: #### 02272-0 ####[facility] LABCLIA [id number] [place], [place] [address]Lrwzewfpegf (Bld) [#/Vol]9.94 10*3/uLHigh1.45-7.50[facility] on above:Order Comment: Specimen Type: BLOOD SPECIMENOrdering Facility: [facility] Address:[address] [place], [place] [address]Performed By: #### 54155-3 ####[facility] LABCLIA [id number] [place], [place] [address]Ynsjjgiuyjm/100 WBC (Bld)75.5 %NormalKettering Memorial Hospital on above:Order Comment: Specimen Type: BLOOD SPECIMENOrdering Facility: [facility] Address:[address] [place], [place] [address]Performed By: #### 39201-9 ####[facility] LABCLIA [id number] [place], [place] [address]Szuqzvntu RBC (Bld) [#/Vol] 10*3/uLNormal<0.01[facility] on above:Order Comment: Specimen Type: BLOOD SPECIMENOrdering Facility: [facility] Address:[address] [place], [place] [address]Performed By: #### 96585-5 ####[facility] LABIA [id number] [place], [place] [address]Tvjbgunda RBC/100 WBC (Bld) [Ratio]0.0 /100 WBCNormal [facility] on above:Order Comment: Specimen Type: BLOOD SPECIMENOrdering Facility: [facility] Address:[address] [place], [place] [address]Performed By: #### 20201-3 ####[facility] LABCLIA [id number] [place], [place] [address]Sufcjicb mean volume (Bld) [Entitic vol]9.9 fLNormal9.0-12.7CCoshocton Regional [facility] on above:Order Comment: Specimen Type: BLOOD SPECIMENOrdering Facility: [facility] Address:[address] [place] [address] Performed By: #### 63828-9 ####[facility] LABCLIA [id number] [place], [place] [address]Nykmgarqn (Bld) [#/Vol]305 10*3/lTDuuiml813-641MuafwjbehKettering Memorial Hospital on above:Order Comment: Specimen Type: BLOOD SPECIMENOrdering Facility: [facility] Address:[address] [place], [place] [address]Performed By: #### 07549-6 ####[facility] LABCLIA [id number] [place], [place] [address]CSF (Bld) [#/Vol]4.77 10*6/uLNormal3.90-5.20[facility] on above:Order Comment: Specimen Type: BLOOD SPECIMENOrdering Facility: [facility] Address:[address] [place], [place] [address]Performed By: #### 77153-3 ####[facility] LABCLIA [id number] [place], [place] [address]ZAO (Bld) [#/Vol]13.16 10*3/uLHigh3.70-11.00[facility] on above: Order Comment: Specimen Type: BLOOD SPECIMENOrdering Facility: [facility] Address:[address] [place], [place] [address]Performed By: #### 47766- 8 ####[facility] LABCLIA [id number] [facility] [place] [address]AMKUOJcz 43-92-0911PXDIGLRiowdpBaovgojgg [facility] CNPNon 12-66-5671PDYYOioiijGoeyscssp Clinic ClevelandComprehensive metabolic 2000 panelon 45-30-7037Ltiivgl [Mass/Vol]4.3 g/dLNormal3.9-4.9CCoshocton Regional [facility] on above:Order Comment: Specimen Type: BLOOD SPECIMENOrdering Facility: [facility] Address:[address] [place], [place] [address]Performed By: #### 25758-1 ####[facility] LABCLIA [id number] [facility] PERESMAGGYCOPPER SPRINGS HOSPITALAMAYAMIND[place], [place] [address]WTY [Catalytic activity/Vol]83 U/WMkgydl55-165HrjwvhaxrKettering [facility] Hospital on above:Order Comment: Specimen Type: BLOOD SPECIMENOrdering Facility: [facility] Address:[address] [place], [place] [address]Performed By: #### 33414-7 ####[facility] LABCLIA [id number] [facility] NEISHACOPPER SPRINGS HOSPITALAMAYAMINDEN [place], [place] [address]ARG [Catalytic activity/Vol]49 U/LHigh7-38[facility] on above:Order Comment: Specimen Type: BLOOD SPECIMENOrdering Facility: [facility] Address:[address] [place], [place] [address]Performed By: #### 08717-7 ####[facility] LABCLIA [id number] KERRIKAISER WESTSIDE MEDICAL CENTERMAGGYCOPPER SPRINGS HOSPITALCAYDENDOW[place], [place] [address]Zvsof gap [Moles/Vol]17 mmol/LHigh8-15[facility] on above:Order Comment: Specimen Type: BLOOD SPECIMENOrdering Facility: [facility] Address:[address] [place], [place] [address]Performed By: #### 68709- 8 ####[facility] LABCLIA [id number] [facility] NEISHACOPPER SPRINGS HOSPITALAMAYAMINDEN [place], [place] [address]RYX [Catalytic activity/Vol]20 U/QRgrhza92-21GflyzhexwK[facility]tering [facility] Hospital on above:Order Comment: Specimen Type: BLOOD SPECIMENOrdering Facility: [facility] Address:[address] [place], [place] [address]Performed By: #### 40836-3 ####[facility] LABCLIA [id number] [facility] CENTERMAGGYCOPPER SPRINGS [place] [address]Hwphmtwqx [Mass/Vol]0.3 mg/dLNormal0.2-1.3CCoshocton Regional [facility] Center on above:Order Comment: Specimen Type: BLOOD SPECIMENOrdering Facility: [facility] Address:[address] [place], [place] [address]Performed By: #### 89359- 8 ####[facility] LABCLIA [id number] [facility] [place], [place] [address]Bozkhdr [Mass/Vol]10.2 mg/dLNormal8.5-10.2CCoshocton [facility] on above:Order Comment: Specimen Type: BLOOD SPECIMENOrdering Facility: [facility] Address:[address] [place], [place] [address]Performed By: #### 47190-3 ####[facility] LABCLIA [id number] KERRIKAISER WESTSIDE MEDICAL CENTERMAGGYHIGHLANDS, [place] [address]Mpwqutwr [Moles/Vol]101 mmol/HXohfqr23-297AshsgxgciKettering [facility] Hospital on above: Order Comment: Specimen Type: BLOOD SPECIMENOrdering Facility: [facility] Address:[address] [place], [place] [address]Performed By: #### 05344- 8 ####[facility] LABCLIA [id number] [facility] [place] [address]JP5 [Moles/Vol]20 mmol/GFev25-07FhhoncupgKettering [facility] Hospital on above:Order Comment: Specimen Type: BLOOD SPECIMENOrdering Facility: [facility] Address:[address] [place], [place] [address]Performed By: #### 18351-2 ####[facility] LABCLIA [id number] [place], [place] [address]Neqthmszfx [Mass/Vol]0.49 mg/dL Low0.58-0.96[facility] on above:Order Comment: Specimen Type: BLOOD SPECIMENOrdering Facility: [facility] Address:[address] [place], [place] [address]Performed By: #### 79397-4 ####[facility] LABIA [id number] [place] [address] eGFRcr SerPlBld CKD-EPI 2609431 mL/min/1.73m???Normal>=60[facility] on above:Order Comment: Specimen Type: BLOOD SPECIMENOrdering Facility: [facility] Address:[address] [place], [place] [address]Result Comment: Estimated Glomerular Filtration Rate (eGFR) is [...] accurately reflect actual GFR. Performed By: #### 77168-7 ####[facility] LABIA [id number] [place], [place] [address]Uejjrij [Mass/Vol]248 mg/dLHigh 74-99[facility] on above:Order Comment: Specimen Type: BLOOD SPECIMENOrdering Facility: [facility] Address:[address] [place], [place] [address]Result Comment: The [place] [employer] (ADA) provides guidance for cutoff [...] Standards of Medical Care in Diabetes 2016, [place] [employer]. Diabetes Care. 2016.39(Suppl 1).Performed By: #### 27321-9 ####[facility] LABCLIA [id number] [facility] [place] [address]Cflwprwyx [Moles/Vol]4.1 mmol/LNormal3.7-5.1CCoshocton Regional [facility] Center on above:Order Comment: Specimen Type: BLOOD SPECIMENOrdering Facility: [facility] Address:[address] [place], [place] [address]Performed By: #### 04513-2 ####[facility] LABCLIA [id number] [place], [place] [address]Tqaznjk [Mass/Vol]7.6 g/dLNormal6.3-8.0[facility] on above:Order Comment: Specimen Type: BLOOD SPECIMENOrdering Facility: [facility] Address:[address] [place], [place] [address]Performed By: #### 81034- 8 ####[facility] LABCLIA [id number] [place], [place] [address]Sjuimi [Moles/Vol]138 mmol/RVvgphi441-639GlujqrwukKettering Memorial Hospital on above:Order Comment: Specimen Type: BLOOD SPECIMENOrdering Facility: [facility] Address:[address] [place], [place] [address]Performed By: #### 58571-8 ####[facility] LABCLIA [id number] [place], [place] [address]Skvo nitrogen [Mass/Vol]16 mg/dLNormal7-21[facility] on above:Order Comment: Specimen Type: BLOOD SPECIMENOrdering Facility: [facility] Address:[address] [place], [place] [address]Performed By: #### 81546-6 ####[facility] LABCLIA [id number] [place], [place] [address]Ijopqanc SerPl-mCncon 19-03-4457Uwbabfvb [Mass/Vol]83.6 ng/vLIvdqls18.7-205.1CCoshocton [facility] on above:Order Comment: Specimen Type: BLOOD SPECIMENOrdering Facility: [facility] Address:[address] [place], [place] [address]Performed By: #### 91732-9, 9, 8, 2275-4 ####[facility] LABCLIA [id number] [place] [address] [place] AMERICAFolate SerPl-mCncon 54-50-0782Hxwavm [Mass/Vol]ng/mLNormal>4.7CCoshocton [facility] on above:Order Comment: Specimen Type: BLOOD SPECIMENOrdering Facility: [facility] Address:[address] [place], [place] [address]Result Comment: A result of > 20 ng/mL is not necessarily indicative of a pathologic or treatable condition: it reflects a limitation of the test methodology.Assay reference range: 4.8 to 24.2 ng/mL. Suitable for detection of folate deficiency.Reference:Folate III (Folate III) [package insert V 1.0 Berm[place]ian]. [facility], [place], [place]: March 2015.Performed By: #### 19156-8, 9, 8, 4 ####[facility] LABIA [id number] [place] [address] [place] IMMUNOGLOBULINS,IGG,IGA,IGMon 09-22-3200RrJ [Mass/Vol]184 mg/uFAezeii23-880 [facility] on above:Order Comment: Specimen Type: BLOOD SPECIMENOrdering Facility: [facility] Address:[address] [place], [place] [address]Performed By: #### SERIMM ####[facility] LABCLIA [id number] [place] [address] [place] AMERICAIgG [Mass/Vol]610 mg/aAObk338-6696ThqqgfdsnK[facility] on above:Order Comment: Specimen Type: BLOOD SPECIMENOrdering Facility: [facility] Address:[address] [place], [place] [address]Performed By: #### SERIMM ####[facility] LABCLIA [id number] [address] [address] [place] AMERICAIgM [Mass/Vol]454 mg/dL Qcvi47-251HvkuwnozwKettering [facility] Hospital on above:Order Comment: Specimen Type: BLOOD SPECIMENOrdering Facility: [facility] Address:[address] [place], [place] [address]Performed By: #### SERIMM ####[facility] LABCLIA [id number] [address] [address] [place] OF AMERICAIron and Iron binding capacity panelon 16-58-3599Bmwb [Mass/Vol]156 ug/oEWctsux14-398ZzhsohsqoK[facility]tering [facility] Hospital on above:Order Comment: Specimen Type: BLOOD SPECIMENOrdering Facility: [facility] Address:[address] [place], [place] [address]Performed By: #### 24185- 8, 9, 8, 2275-4 ####[facility] LABCLIA [id number] [address] [place] AMERICAIron binding capacity [Mass/Vol]443 ug/eZKaxt906-262VqgzstlbmK[facility] Hospital on above:Order Comment: Specimen Type: BLOOD SPECIMENOrdering Facility: [facility] Address:[address] [place], [place] [address] Performed By: #### 29967-9, 9, 8, 2275-4 ####[facility] LABCLIA [id number] [address] [address] [place] AMERICAIron/TIBC [Molar ratio]35.2 %Dieqnt08.0-57.0[facility] on above:Order Comment: Specimen Type: BLOOD SPECIMENOrdering Facility: [facility] Address:[address] [place] [address]Mpfugylpg By: #### 62723-3, 9, 2283-8, 6-4 ####[facility] LABCLIA [id number] [address] [address] [place] AMERICAVit B12 SerPl-mCncon 93-38-3036Yghssugxb (Vitamin B12) [Mass/Vol]694 pg/aJAddxot691-6613Ftpqmalru Clinic ClevelandComment on above: Order Comment: Specimen Type: BLOOD SPECIMENOrdering Facility: [facility] Address:[address] [place], [place] [address]Performed By: #### 00219- 8, 9, 4-8, 6-4 ####[facility] LABCLIA [id number] [place] [address] [place] AMERICACNPNon 48-83-3519AILAUfpgluJqsoutufd Clinic ClevelandHCG ( test) IA.rapid Ql (U)Ordered By: Adolfo Kang on 53-48-2114VYN ( test) Ql (U)Negative [facility] Medical CenterHCG,Urineon 21-73-2460Jytz HCG ( test) Ql (U)NegativeNoWake Forest Baptist Health Davie Hospital Physician GroupComment on above:Result Comment: PERFORMED BY: [facility] [address] [facility] [place] [address] PATHOLOGIST LABORATORY CHIEF TIM FOOTE M.D.Performed By: #### UHCG #### [place] [id number] USABI US BREAST LIMITED LEFTon 48-50-5729ZF US BREAST LIMITED LEFTThis is a summary [...] SIGNED BY: Yassine Owens M.D.NormalNot AvailableCNPNon 01-18-2025 CNPNNormalTuscarawas Hospital25([place])D3 SerPl-mCncon 84-74-290972- hydroxyvitamin D3 [Mass/Vol]32.2 ng/cSWqkzem54.0-80.0[facility] Comment on above:Order Comment: Specimen Type: BLOOD SPECIMENOrdering Facility: [facility] Address:[address] [place] [address] Performed By: #### 1989-3 ####[facility] LABCLIA [id number] [address] [place] BLOOD TB SCREENon 01-11-2025M. tuberculosis tuberculin stim IFN-g Ql (Bld) NegativeNormalCSelect Medical Specialty Hospital - Columbus SouthComment on above:Order Comment: Specimen Type: BLOOD SPECIMENOrdering Facility: [facility] Address:[address] [place], [place] [address]Performed By: #### INFTBP ####[facility] LABCLIA [id number] [place] [address] [place] AMERICAMITOGEN MINUS NIL>9.97Normal>=0.50[facility] on above:Order Comment: Specimen Type: BLOOD SPECIMENOrdering Facility: [facility] Address:[address] [place], [place] [address]Performed By: #### INFTBP ####[facility] LABCLIA [id number] [place] [address] [place] TB GAMMA INTERPRETATIONNormalCCoshocton Regional Medical Center on above:Order Comment: Specimen Type: BLOOD SPECIMENOrdering Facility: [facility] Address:[address] [place], [place] [address]Performed By: #### INFTBP ####[facility] LABCLIA [id number] [place] [address] [place] AMERICATB NIL0.03 IU/mLNormal<=8.00 [facility] on above:Order Comment: Specimen Type: BLOOD SPECIMENOrdering Facility: [facility] Address:[address] [place], [place] [address]Performed By: #### INFTBP ####[facility] LABCLIA [id number] [place] [address] [place] AMERICATB1 AG MINUS NIL0.01 IU/mLNormal<0.35[facility] on above:Order Comment: Specimen Type: BLOOD SPECIMENOrdering Facility: [facility] Address:[address] [place], [place] [address]Performed By: #### INFTBP ####[facility] LABCLIA [id number] [place] [address] [place] AMERICATB2 AG MINUS NIL0.01 IU/mLNormal<0.35[facility] on above:Order Comment: Specimen Type: BLOOD SPECIMENOrdering Facility: [facility] Address:[address] [place], [place] [address]Performed By: #### INFTBP ####[facility] LABCLIA [id number] [place] [id number] [facility] panel Auto (Bld)on 01-11-2025 Erythrocyte distribution width (RBC) [Ratio]14.5 %11.5 - 15.0 %[facility] Hematocrit (Bld) [Volume fraction]41.5 %36.0 - 46.0 %[facility]imaHemoglobin (Bld) [Mass/Vol]13.8 g/dL11.5 - 15.5 g/dLScci Hospital LimaInterpretation and review of laboratory resultsAbnormalCSelect Medical Cleveland Clinic Rehabilitation Hospital, Edwin ShawH (RBC) [Entitic mass]32.2 pg26.0 - 34.0 pgCSelect Medical Cleveland Clinic Rehabilitation Hospital, Edwin ShawHC (RBC) [Mass/Vol]33.3 g/dL30.5 - 36.0 g/dL [facility] LimaMCV (RBC) [Entitic vol]96.7 fL80.0 - 100.0 fLCMercy Health Willard Hospital Nucleated RBC (Bld) [#/Vol]NINFCMercy Health Willard HospitalPlatelet mean volume (Bld) [Entitic vol]10.6 fL9.0 - 12.7 fLCMercy Health Willard HospitalPlatelets (Bld) [#/Vol]265 10*3/[facility]omerene HospitalRBC (Bld) [#/Vol]4.29 10*6/uL3.90 - 5.20 m/Pomerene HospitalWBC (Bld) [#/Vol]12.61 10*3/uLHolzer Health System Erythrocyte distribution width (RBC) [Ratio]14.5 %Ewkhds00.5-15.0Tuscarawas HospitalCommymichigan medical center sault on above:Order Comment: Specimen Type: BLOOD SPECIMENOrdering Facility: [facility] Address:[address] [place] [address]Tlpmoelai By: #### 68377-2 ####[facility] LABCLIA [id number] [place], [place] [address]Syqghlaxop (Bld) [Volume fraction]41.5 %Gokdqr85.0-46.0[facility] on above:Order Comment: Specimen Type: BLOOD SPECIMENOrdering Facility: [facility] Address:[address] [place] [address]Tssmurkpv By: #### 58865-7 ####[facility] LABCLIA [id number] [place], [place] [address]Zkflxdfkfd (Bld) [Mass/Vol]13.8 g/lXAcpgfq86.5-15.5 [facility] on above:Order Comment: Specimen Type: BLOOD SPECIMENOrdering Facility: [facility] Address:[address] [place], [place] [address]Performed By: #### 25177-7 ####[facility] LABCLIA [id number] [place], [place] [address]AGM (RBC) [Entitic mass]32.2 onYvpeub63.0-34.0[facility] on above: Order Comment: Specimen Type: BLOOD SPECIMENOrdering Facility: [facility] Address:[address] [place], [place] [address]Performed By: #### 71005- 2 ####[facility] LABCLIA [id number] [place], [place] [address]UWHO (RBC) [Mass/Vol]33.3 g/dVJvmnlj29.5-36.0[facility] on above:Order Comment: Specimen Type: BLOOD SPECIMENOrdering Facility: [facility] Address:[address] [place], [place] [address]Performed By: #### 50999-5 ####[facility] LABCLIA [id number] [place], [place] [address]EFM (RBC) [Entitic vol]96.7 mSUybhon64.0-100.0[facility] on above: Order Comment: Specimen Type: BLOOD SPECIMENOrdering Facility: [facility] Address:[address] [place], [place] [address]Performed By: #### 78700- 2 ####[facility] LABCLIA [id number] [place], [place] [address]Shjbtsmje RBC (Bld) [#/Vol]10*3/uLNormal<0.01[facility] on above:Order Comment: Specimen Type: BLOOD SPECIMENOrdering Facility: [facility] Address:[address] [place], [place] [address]Performed By: #### 76071-6 ####[facility] LABCLIA [id number] [place], [place] [address]Eswymhle mean volume (Bld) [Entitic vol]10.6 fLNormal9.0-12.7CCoshocton Regional Medical Center on above:Order Comment: Specimen Type: BLOOD SPECIMENOrdering Facility: [facility] Address:[address] [place] [address] Performed By: #### 59686-7 ####[facility] LABCLIA [id number] [place], [place] [address]Odimqqzzn (Bld) [#/Vol]265 10*3/lHGgertc173-690GyngaevrcKettering Memorial Hospital on above:Order Comment: Specimen Type: BLOOD SPECIMENOrdering Facility: [facility] Address:[address] [place], [place] [address]Performed By: #### 26763-8 ####[facility] LABCLIA [id number] [place], [place] [address]TWT (Bld) [#/Vol]4.29 10*6/uLNormal3.90-5.20[facility] on above:Order Comment: Specimen Type: BLOOD SPECIMENOrdering Facility: [facility] Address:[address] [place], [place] [address]Performed By: #### 48537-1 ####[facility] LABIA [id number] [place], [place] [address]GXL (Bld) [#/Vol]12.61 10*3/uLHigh3.70-11.00[facility] on above: Order Comment: Specimen Type: BLOOD SPECIMENOrdering Facility: [facility] Address:[address] [place] [address]Nadjprpcw By: #### 56770- 2 ####[facility] LABCLIA [id number] [place], [place] [address]AYW SerPl-mCncon 44-07-5060MPP [Mass/Vol]mg/LNormal<0.9 [facility] HospitalComment on above:Order Comment: Specimen Type: BLOOD SPECIMENOrdering Facility: [facility] Address:[address] [place] [address]Afhbotfxo By: #### 1988-5, 9 ####[facility] LABCLIA [id number] [address] OF [facility] HOSPITALComprehensive metabolic 2000 panelOrdered By: Josse Merlos on 48-82-6852Rvemynx [Mass/Vol]3.9 g/dL3.9 - 4.9 g/dLLewisville ClinicALP [Catalytic activity/Vol]83 U/L34 - 123 U/LCleveland ClinicALT [Catalytic activity/Vol]42 U/LHigh7 - 38 U/LCleveland ClinicAnion gap [Moles/Vol]10 mmol/L8 - 15 mmol/L [facility] ClinicAST [Catalytic activity/Vol]22 U/L13 - 35 U/LCleveland [facility] Bilirubin [Mass/Vol]0.2 mg/dL0.2 - 1.3 mg/dLLewisville ClinicCalcium [Mass/Vol] 9.7 mg/dL8.5 - 10.2 mg/dLLewisville ClinicChloride [Moles/Vol]103 mmol/L98 - 107 mmol/LCleveland ClinicCO2 [Moles/Vol]23 mmol/L22 - 30 mmol/LCleveland Clinic Creatinine [Mass/Vol]0.50 mg/dLLow0.58 - 0.96 mg/dLScci Hospital LimaGFR/1.73 sq M.predicted among non-blacks MDRD (S/P/Bld) [Vol [...] eGFRmay not accurately reflect actual GFR.Glucose [Mass/Vol]221 mg/jVAcua18 - 99 mg/dLThe [facility] Hospital on above:The [place] [employer] (ADA) provides guidance for cutoff [...] Standards of Medical Care in Diabetes 2016, [place] [employer]. Diabetes Care. 2016.39(Suppl 1). Interpretation and review of laboratory resultsAbnormalCleveland ClinicPotassium [Moles/Vol]4.1 mmol/L3.7 - 5.1 mmol/LCcommunity memorial hospital ClinicProtein [Mass/Vol]6.8 g/dL 6.3 - 8.0 g/dLKettering Health Daytonodium [Moles/Vol]136 mmol/L136 - 144 mmol/L Scci Hospital LimaUrea nitrogen [Mass/Vol]15 mg/dL7 - 21 mg/dLAshtabula General Hospitalprehensive metabolic 2000 panelon [id number] [Mass/Vol]3.9 g/dLNormal3.9-4.9CCoshocton Regional Medical Center on above:Order Comment: Specimen Type: BLOOD SPECIMENOrdering Facility: [facility] Address:[address] [place], [place] [address]Zlonaspva By: #### [id number] ####[facility] LABCLIA [id number] [place], [place] [address]LPI [Catalytic activity/Vol]83 U/QRtybot32-880SizzauinqKettering Memorial Hospital on above:Order Comment: Specimen Type: BLOOD SPECIMENOrdering Facility: FI[facility]ANDS [facility] Address:[address] [place], [place] [address]Performed By: #### 70783-4 ####[facility] LABCLIA [id number] [facility], [place] [address]QNO [Catalytic activity/Vol]42 U/LHigh7-38[facility] on above:Order Comment: Specimen Type: BLOOD SPECIMENOrdering Facility: [facility] Address:[address] [place], [place] [address]Performed By: #### 70743- 8 ####[facility] LABCLIA [id number] [place], [place] [address]Twdsw gap [Moles/Vol]10 mmol/LNormal8-15[facility] on above:Order Comment: Specimen Type: BLOOD SPECIMENOrdering Facility: [facility] Address:[address] [place], [place] [address]Performed By: #### 61337-7 ####[facility] LABCLIA [id number] [place], [place] [address]KEB [Catalytic activity/Vol]22 U/IXueaaf28-14MkruzeqykKettering Memorial Hospital on above:Order Comment: Specimen Type: BLOOD SPECIMENOrdering Facility: [facility] Address:[address] [place], [place] [address]Performed By: #### 94201-9 ####[facility] LABCLIA [id number] [place] [address] Bilirubin [Mass/Vol]0.2 mg/dLNormal0.2-1.3CCoshoct[facility] on above:Order Comment: Specimen Type: BLOOD SPECIMENOrdering Facility: [facility] Address:[address] [place], [place] [address]Performed By: #### 26197-8 ####[facility] LABCLIA [id number] [place], [place] [address]Bnuykei [Mass/Vol]9.7 mg/dLNormal8.5-10.2CCoshocton [facility] on above:Order Comment: Specimen Type: BLOOD SPECIMENOrdering Facility: [facility] Address:[address] [place], [place] [address]Performed By: #### 92428-3 ####[facility] LABCLIA [id number] [place], [place] [address]Uaosxdbn [Moles/Vol]103 mmol/OSsawyi20-621NzhsdoldqKettering Memorial Hospital on above: Order Comment: Specimen Type: BLOOD SPECIMENOrdering Facility: [facility] Address:[address] [place], [place] [address]Performed By: #### 24406- 8 ####[facility] LABCLIA [id number] [place], [place] [address]XF0 [Moles/Vol]23 mmol/RAzzkvv94-59PdrniischKettering Memorial Hospital on above:Order Comment: Specimen Type: BLOOD SPECIMENOrdering Facility: [facility] Address:[address] [place], [place] [address]Performed By: #### 52002-8 ####[facility] LABCLIA [id number] [place], [place] [address]Sosftwgiqn [Mass/Vol]0.50 mg/dL Low0.58-0.96[facility] on above:Order Comment: Specimen Type: BLOOD SPECIMENOrdering Facility: [facility] Address:[address] [place], [place] [address]Performed By: #### 53795-5 ####[facility] LABCLIA [id number] [place] [address] eGFRcr SerPlBld CKD-EPI 1304173 mL/min/1.73m???Normal>=60[facility] on above:Order Comment: Specimen Type: BLOOD SPECIMENOrdering Facility: [facility] Address:[address] [place], [place] [address]Result Comment: Estimated Glomerular Filtration Rate (eGFR) is [...] accurately reflect actual GFR. Performed By: #### 96324-4 ####[facility] LABCLIA [id number] [place], [place] [address]Kznmdnx [Mass/Vol]221 mg/dLHigh 74-99[facility] on above:Order Comment: Specimen Type: BLOOD SPECIMENOrdering Facility: [facility] Address:[address] [place], [place] [address]Result Comment: The [place] [employer] (ADA) provides guidance for cutoff [...] Standards of Medical Care in Diabetes 2016, [place] [employer]. Diabetes Care. 2016.39(Suppl 1).Performed By: #### 85780-5 ####[facility] LABCLIA [id number] [place], [place] [address]Rabkpkzlb [Moles/Vol]4.1 mmol/LNormal3.7-5.1CCoshocton [facility] on above:Order Comment: Specimen Type: BLOOD SPECIMENOrdering Facility: [facility] Address:[address] [address]Performed By: #### 95381-5 ####[facility] LABCLIA [id number] [place], [place] [address]Rxwcxti [Mass/Vol]6.8 g/dLNormal6.3-8.0[facility] on above:Order Comment: Specimen Type: BLOOD SPECIMENOrdering Facility: [facility] Address:[address] [place], [place] [address]Performed By: #### 34081- 8 ####[facility] LABCLIA [id number] [place], [place] [address]Tpxxcl [Moles/Vol]136 mmol/TRhgwdm809-288WukyfwzulKettering Memorial Hospital on above:Order Comment: Specimen Type: BLOOD SPECIMENOrdering Facility: [facility] Address:[address] [place], [place] [address]Performed By: #### 37231-0 ####[facility] LABCLIA [id number] [place], [place] [address]Tfwb nitrogen [Mass/Vol]15 mg/dLNormal7-21[facility] on above:Order Comment: Specimen Type: BLOOD SPECIMENOrdering Facility: [facility] Address:[address] [place], [place] [address]Performed By: #### 95465-9 ####[facility] LABCLIA [id number] [place], [place] [address]HKJ Westergren method (Bld) [Velocity]on 98-34-4034FEV (Bld) [Velocity]34 mm/hHigh0-20[facility] on above:Order Comment: Specimen Type: BLOOD SPECIMENOrdering Facility: [facility] Address:[address] [place], [place] [address]Performed By: #### 4537-7 ####[facility] LABCLIA [id number] [place] [address] [place] AMER[place]AHBV core Ab Ser Qlon 01-11-2025 HBV core Ab Ql (S)NegativeNormalNegativeKettering Memorial Hospital on above:Order Comment: Specimen Type: BLOOD SPECIMENOrdering Facility: [facility] Address:[address] [place] [address]Yhwzja Comment: No evidence of current or past infection with Hepatitis B virus. Should recent infection be suspected, repeat testing may be considered 3-4 weeks after this draw.Performed By: #### 5195-3, 92401-2, 40448-3 ####[facility] LABIA [id number] [address] [place] AMERICAHBV surface Ab Ql (S)on 34-06-4267RHM surface Ab Qn (S)177.77 mIU/mLNormalTuscarawas HospitalCommymichigan medical center sault on above:Order Comment: Specimen Type: BLOOD SPECIMENOrdering Facility: [facility] Address:[address] [place], [place] [address]Result Comment: <8 mIU/mL: No serological evidence of immunity to Hepatitis B Virus.>/= 8 to <12 mIU/mL: No serological evidence of immunity to Hepatitis B Virus.>/= 12 mIU/mL: Consistentwith serological evidence of immunity to Hepatitis B Virus.Performed By: #### 5195-3, 71022-0, 01426-0 ####[facility] LABIA [id number] [address] [place] AMERICAHBV surface Ab Ser Ql on 96-20-9474ADP surface Ab Ql (S)PositiveNormalCSelect Medical Specialty [facility] Comment on above:Order Comment: Specimen Type: BLOOD SPECIMENOrdering Facility: [facility] Address:[address] [place] [address]Vuqxgj Comment: Consistent with serological evidence of immunity to Hepatitis B Virus. Performed By: #### 5195-3, 47931-6, 94737-7 ####[facility] LABVERMONT STATE [facility] [id number] [address] [place] AMERICAHBV surface Ag Ser Qlon 93-79-7855SVX surface Ag Ql (S)NegativeNormal NegativeKettering Memorial Hospital on above:Order Comment: Specimen Type: BLOOD SPECIMENOrdering Facility: [facility] Address:[address] [place], [place] [address]Performed By: #### 5195-3, 36779-8, 55336-0 ####[facility] LABCLIA [id number] [address] STATES OF MIAMI VALLEY HOSPITALHCV Ab Ser Qlon 90-77-9586XCB Ab Ql (S)NegativeNormalNegativeK[facility] on above:Order Comment: Specimen Type: BLOOD SPECIMENOrdering Facility: [facility] Address:[address] [place], [place] [address]Result Comment: The result suggests no evidence of infection with Hepatitis C virus. Should recent i nfection be suspected, repeat testing may be considered 4-6 weeks after this draw.Performed By: #### 45746-7 ####[facility] LABCLIA [id number] [place] [address] [place] Vit B12 SerPl-mCncon 94-74-7866Vazjgfpdl (Vitamin B12) [Mass/Vol]710 pg/mLNormal 232-1245CCos[facility] on above:Order Comment: Specimen Type: BLOOD SPECIMENOrdering Facility: [facility] Address:[address] [place], [place] [address]Performed By: #### 1988-5, 2132-9 ####[facility] LABCLIA [id number] [place] [address] [place] [facility] VALLEY HOSPITALCB W Auto Differential panel (Bld)on 11-29-2024 Basophils (Bld) [#/Vol]0.09 10*3/uLNormal<0.11CCoshoct[facility] on above:Order Comment: Specimen Type: BLOOD SPECIMENOrdering Facility: [facility] Address:[address] [place] [address] Performed By: #### 18966-2 ####[facility] LABCLIA [id number] [place], [place] [address]Iwjgmlfwb/100 WBC (Bld)0.7 % NormalKettering Memorial Hospital on above:Order Comment: Specimen Type: BLOOD SPECIMENOrdering Facility: [facility] Address:[address] [place], [place] [address]Performed By: #### 02552-9 ####[facility] LABIA [id number] [place] [address] Differential cell count method Nom (Bld)AutoNormalClevelOur Community Hospital Comment on above:Order Comment: Specimen Type: BLOOD SPECIMENOrdering Facility: [facility] Address:[address] [place] [address] Performed By: #### 86438-6 ####[facility] LABIA [id number] [place], [place] [address]Tajsralexpk (Bld) [#/Vol]0.09 10*3/uLNormal<0.46[facility] on above:Order Comment: Specimen Type: BLOOD SPECIMENOrdering Facility: [facility] Address:[address] [place], [place] [address]Performed By: #### 66262-7 ####[facility] LABIA [id number] [place], [place] [address]Lyugxzkyjhf/100 WBC (Bld)0.7 %NormalKettering Memorial Hospital on above:Order Comment: Specimen Type: BLOOD SPECIMENOrdering Facility: [facility] Address:[address] [place], [place] [address]Performed By: #### 27799-1 ####[facility] LABIA [id number] [place], [place] [address]Hcubklffnug distribution width (RBC) [Ratio]14.8 %Vbgbip55.5-15.0[facility] on above: Order Comment: Specimen Type: BLOOD SPECIMENOrdering Facility: [facility] Address:[address] [place], [place] [address]Performed By: #### 74462- 8 ####[facility] LABIA [id number] [place], [place] [address]Ynkeirqfcb (Bld) [Volume fraction]42.9 %Gtxwin55.0-46.0 [facility] on above:Order Comment: Specimen Type: BLOOD SPECIMENOrdering Facility: [facility] Address:[address] [place], [place] [address]Performed By: #### 85204-2 ####[facility] LABIA [id number] [place], [place] [address]Yeejojphwe (Bld) [Mass/Vol]14.0 g/jFXqrfsv70.5-15.5CCoshocton [facility] on above: Order Comment: Specimen Type: BLOOD SPECIMENOrdering Facility: [facility] Address:[address] [place], [place] [address]Performed By: #### 21659- 8 ####[facility] LABIA [id number] [place], [place] [address]Rlocpmlm granulocytes (Bld) [#/Vol]0.18 10*3/uLHigh<0.10 [facility] on above:Order Comment: Specimen Type: BLOOD SPECIMENOrdering Facility: [facility] Address:[address] [place], [place] [address]Performed By: #### 39882-1 ####[facility] LABIA [id number] [place], [place] [address]Ujjqolbo granulocytes/100 WBC (Bld)1.5 %NormalKettering Memorial Hospital on above: Order Comment: Specimen Type: BLOOD SPECIMENOrdering Facility: [facility] Address:[address] [place], [place] [address]Performed By: #### 95609- 8 ####[facility] LABIA [id number] [place], [place] [address]Vzycwlfqxoy (Bld) [#/Vol]1.99 10*3/uLNormal1.00-4.00 [facility] on above:Order Comment: Specimen Type: BLOOD SPECIMENOrdering Facility: [facility] Address:[address] [place], [place] [address]Performed By: #### 53727-9 ####[facility] LABIA [id number] [place], [place] [address]Gsldphvbgae/100 WBC (Bld)16.4 %NormalKettering Memorial Hospital on above:Order Comment: Specimen Type: BLOOD SPECIMENOrdering Facility: [facility] Address:[address] [place], [place] [address]Performed By: #### 84161-2 ####[facility] LABCLIA [id number] [place], [place] [address]VRS (RBC) [Entitic mass]31.7 phVcawbj93.0-34.0[facility] on above:Order Comment: Specimen Type: BLOOD SPECIMENOrdering Facility: [facility] Address:[address] [place], [place] [address]Performed By: #### 76877-5 ####[facility] LABCLIA [id number] [place], [place] [address]RLBQ (RBC) [Mass/Vol]32.6 g/dWBnmmyy87.5-36.0[facility] on above: Order Comment: Specimen Type: BLOOD SPECIMENOrdering Facility: [facility] Address:[address] [place], [place] [address]Performed By: #### 21134- 8 ####[facility] LABCLIA [id number] [place], [place] [address]JPQ (RBC) [Entitic vol]97.1 nWEvfcxu21.0-100.0[facility] on above:Order Comment: Specimen Type: BLOOD SPECIMENOrdering Facility: [facility] Address:[address] [place], [place] [address]Performed By: #### 45142-4 ####[facility] LABCLIA [id number] [place], [place] [address]Uzcioygbn (Bld) [#/Vol]0.67 10*3/uLNormal<0.87[facility] on above:Order Comment: Specimen Type: BLOOD SPECIMENOrdering Facility: [facility] Address:[address] [place], [place] [address]Performed By: #### 44156- 8 ####[facility] LABCLIA [id number] [place], [place] [address]Fqwbdulio/100 WBC (Bld)5.5 %NormalKettering Memorial Hospital on above:Order Comment: Specimen Type: BLOOD SPECIMENOrdering Facility: [facility] Address:[address] [place], [place] [address]Performed By: #### 29765-6 ####[facility] LABIA [id number] [place], [place] [address]Rneuorgwarp (Bld) [#/Vol]9.15 10*3/uLHigh1.45-7.50[facility] on above:Order Comment: Specimen Type: BLOOD SPECIMENOrdering Facility: [facility] Address:[address] [place], [place] [address]Performed By: #### 00523-0 ####[facility] LABCLIA [id number] [place], [place] [address]Nafakphpvif/100 WBC (Bld)75.2 %NormalKettering Memorial Hospital on above:Order Comment: Specimen Type: BLOOD SPECIMENOrdering Facility: [facility] Address:[address] [place], [place] [address]Performed By: #### 17778-1 ####[facility] LABIA [id number] [place], [place] [address]Iiagualkt RBC (Bld) [#/Vol] 10*3/uLNormal<0.01[facility] on above:Order Comment: Specimen Type: BLOOD SPECIMENOrdering Facility: [facility] Address:[address] [place], [place] [address]Performed By: #### 35281-0 ####[facility] LABCLIA [id number] [place], [place] [address]Pmounuuju RBC/100 WBC (Bld) [Ratio]0.0 /100 WBCNormal [facility] on above:Order Comment: Specimen Type: BLOOD SPECIMENOrdering Facility: [facility] Address:[address] [place], [place] [address]Performed By: #### 47537-3 ####[facility] LABCLIA [id number] [place], [place] [address]Nxeutygs mean volume (Bld) [Entitic vol]9.7 fLNormal9.0-12.7CCoshocton [facility] on above:Order Comment: Specimen Type: BLOOD SPECIMENOrdering Facility: [facility] Address:[address] [place] [address] Performed By: #### 07668-0 ####[facility] LABCLIA [id number] [place], [place] [address]Doxaxrnvh (Bld) [#/Vol]281 10*3/bRBbruqz061-968OyqpryiyeKettering Memorial Hospital on above:Order Comment: Specimen Type: BLOOD SPECIMENOrdering Facility: [facility] Address:[address] [place], [place] [address]Performed By: #### 32532-7 ####[facility] LABCLIA [id number] [place], [place] [address]RHH (Bld) [#/Vol]4.42 10*6/uLNormal3.90-5.20[facility] on above:Order Comment: Specimen Type: BLOOD SPECIMENOrdering Facility: [facility] Address:[address] [place], [place] [address]Performed By: #### 48928-0 ####[facility] LABCLIA [id number] [facility] [place], [place] [address]VCK (Bld) [#/Vol]12.17 10*3/uLHigh3.70-11.00[facility] on above: Order Comment: Specimen Type: BLOOD SPECIMENOrdering Facility: [facility] Address:[address] [place], [place] [address]Performed By: #### 32709- 8 ####[facility] LABCLIA [id number] [facility] JA DRIVERCOPPER SPRINGS HOSPITALAMAYAMINDEN [place], [place] [address]WQXQKRsj 50-77-2794QHTDOZAqtnwtNrscyfftoBarnesville Hospital metabolic 2000 panelon 91-35-3841Iqcsbjj [Mass/Vol]4.1 g/dLNormal 3.9-4.9CCosho[facility] on above:Order Comment: Specimen Type: BLOOD SPECIMENOrdering Facility: [facility] Address:[address] [place], [place] [address]Performed By: #### 63419-9 ####[facility] LABCLIA [id number] [facility] [place], [place] [address]URQ [Catalytic activity/Vol]61 U/BFsalwi79-565GqzipfgmsKettering Memorial Hospital on above:Order Comment: Specimen Type: BLOOD SPECIMENOrdering Facility: [facility] Address:[address] [place], [place] [address]Performed By: #### 42260-2 ####[facility] LABCLIA [id number] [facility] [place], [place] [address]YFK [Catalytic activity/Vol]39 U/LHigh7-38[facility] on above:Order Comment: Specimen Type: BLOOD SPECIMENOrdering Facility: [facility] Address:[address] [place], [place] [address]Performed By: #### 33110-2 ####[facility] LABCLIA [id number] [facility] [place], [place] [address]Umzys gap [Moles/Vol]13 mmol/LNormal8-15[facility] on above:Order Comment: Specimen Type: BLOOD SPECIMENOrdering Facility: [facility] Address:[address] [place], [place] [address]Performed By: #### 57777- 8 ####[facility] LABCLIA [id number] [facility] [place] [address]XXF [Catalytic activity/Vol]16 U/YUzyuqw49-69BnivwyovhKettering Memorial Hospital on above:Order Comment: Specimen Type: BLOOD SPECIMENOrdering Facility: [facility] Address:[address] [place], [place] [address]Performed By: #### 82516-1 ####[facility] LABCLIA [id number] [place], [place] [address]Zdamaqjqk [Mass/Vol]0.2 mg/dLNormal0.2-1.3CCoshocton [facility] on above:Order Comment: Specimen Type: BLOOD SPECIMENOrdering Facility: [facility] Address:[address] [place], [place] [address]Performed By: #### 16779- 8 ####[facility] LABCLIA [id number] [facility] [place], [place] [address]Bgoqttk [Mass/Vol]9.7 mg/dLNormal8.5-10.2CCoshocton [facility] on above:Order Comment: Specimen Type: BLOOD SPECIMENOrdering Facility: [facility] Address:[address] [place], [place] [address]Performed By: #### 77599-5 ####[facility] LABCLIA [id number] [place], [place] [address]Dbiwpuer [Moles/Vol]102 mmol/L Dlnnvf48-613AcnfwknidKettering Memorial Hospital on above:Order Comment: Specimen Type: BLOOD SPECIMENOrdering Facility: [facility] Address:[address] [place], [place] [address]Performed By: #### 44916-4 ####[facility] LABCLIA [id number] [place] [address] CO2 [Moles/Vol]23 mmol/QRfhhhw52-00AuaogrqxgKettering Memorial Hospital on above: Order Comment: Specimen Type: BLOOD SPECIMENOrdering Facility: [facility] Address:[address] [place], [place] [address]Performed By: #### 19294- 8 ####[facility] LABCLIA [id number] [place], [place] [address]Zyfczbuhhe [Mass/Vol]0.58 mg/dLNormal0.58-0.96[facility] on above:Order Comment: Specimen Type: BLOOD SPECIMENOrdering Facility: [facility] Address:[address] [place], [place] [address]Performed By: #### 12699-0 ####[facility] LABCLIA [id number] [place], [place] [address]Yhywtgzkru and Glomerular filtration rate.predicted panel (S/P/Bld)115 mL/min/1.73m???Normal >=60[facility] on above:Order Comment: Specimen Type: BLOOD SPECIMENOrdering Facility: [facility] Address:[address] [place], [place] [address]Result Comment: Estimated Glomerular Filtration Rate (eGFR) is calculated using the 2020 CKD-EPI creatinine equation. This equation utilizes serum creatinine, sex, and age as parameters. The creatinine assay has traceable calibration to isotope dilution-mass spectrometry. Refer to KDIGO guidelines for clinical interpretation. In patients with unstable renal function, e.g. those with acute kidney injury, the eGFR may not accurately reflect actual GFR.Performed By: #### 60277-3 ####[facility] LABCLIA [id number] [place], [place] [address]Fvwfkis [Mass/Vol]233 mg/sEZwmw35-98UdginuwrtKettering Memorial Hospital on above:Order Comment: Specimen Type: BLOOD SPECIMENOrdering Facility: [facility] Address:[address] [place], [place] [address]Result Comment: The [place] [employer] (ADA) provides guidance for cutoff [...] Standards of Medical Care in Diabetes 2016, [place] [employer]. Diabetes Care. 2016.39(Suppl 1).Performed By: #### 13382-4 ####[facility] LABCLIA [id number] [place], [place] [address]Halcuqrmg [Moles/Vol]4.0 mmol/LNormal3.7-5.1CCoshocton [facility] on above: Order Comment: Specimen Type: BLOOD SPECIMENOrdering Facility: [facility] Address:[address] [place], [place] [address]Performed By: #### 14677- 8 ####[facility] LABCLIA [id number] [place], [place] [address] [Mass/Vol]7.0 g/dLNormal6.3-8.0[facility] on above:Order Comment: Specimen Type: BLOOD SPECIMENOrdering Facility: [facility] Address:[address] [place], [place] [address]Performed By: #### 90114-1 ####[facility] LABCLIA [id number] [place], [place] [address]Zhxnks [Moles/Vol]138 mmol/L Ururcb687-348PgfqytlglKettering Memorial Hospital on above:Order Comment: Specimen Type: BLOOD SPECIMENOrdering Facility: [facility] Address:[address] [place], [place] [address]Performed By: #### 70900-9 ####[facility] LABCLIA [id number] [place] [address] Urea nitrogen [Mass/Vol]16 mg/dLNormal7-21[facility] on above:Order Comment: Specimen Type: BLOOD SPECIMENOrdering Facility: [facility] Address:[address] [place], [place] [address]Performed By: #### 00659-6 ####[facility] LABCLIA [id number] [place], [place] [address]Mczltnbk SerPl-mCncon 20-16-9683Nghxftxc [Mass/Vol] 63.6 ng/oTKlqvnn86.7-205.1CCoshoct[facility] on above:Order Comment: Specimen Type: BLOOD SPECIMENOrdering Facility: [facility] Address:[address] [place], [place] [address]Performed By: #### 45332- 8, 2284-8, 9, 4 ####[facility] LABCLIA [id number] [place] [address] [place] AMERICAFolate SerPl-mCncon 73-30-7426Aqhona [Mass/Vol]ng/mLNormal>4.7CCoshocton Regional [facility] on above:Order Comment: Specimen Type: BLOOD SPECIMENOrdering Facility: [facility] Address:[address] [place], [place] [address]Result Comment: A result of > 20 ng/mL is not necessarily indicative of a pathologic or treatable condition: it reflects a limitation of the test methodology.Assay reference range: 4.8 to 24.2 ng/mL. Suitable for detection of folate deficiency.Reference:Folate III (Folate III) [package insert V 1.0 Berm[place]ian]. [facility], [place], [place]: March 2015.Performed By: #### 31481-9, 4-8, 9, 2275-08 ####[facility] LABCLIA [id number] [place] [address] [place] IMMUNOGLOBULINS,IGG,IGA,IGMon 10-59-9355JfN [Mass/Vol]169 mg/aSIknukx04-280 [facility] on above:Order Comment: Specimen Type: BLOOD SPECIMENOrdering Facility: [facility] Address:[address] [place], [place] [address]Performed By: #### SERIMM ####[facility] LABCLIA [id number] [address] [address] [place] OF AMERICAIgG [Mass/Vol]596 mg/vWOqi945-7869ItdwfsglzTuscarawas HospitalCommymichigan medical center sault on above:Order Comment: Specimen Type: BLOOD SPECIMENOrdering Facility: [facility] Address:[address] [place], [place] [address]Performed By: #### SERIMM ####[facility] LABCLIA [id number] [place] [address] [place] AMERICAIgM [Mass/Vol]410 mg/dL Coik06-752VpbahfetgTuscarawas HospitalComment on above:Order Comment: Specimen Type: BLOOD SPECIMENOrdering Facility: [facility] Address:[address] [place], [place] [address]Performed By: #### SERIMM ####[facility] LABCLIA [id number] [place] [address] [place] AMERICAIron and Iron binding capacity panelon 37-32-7936Hmsp [Mass/Vol]154 ug/nPPjnwca87-834ScnjmmhatKettering Memorial Hospital on above:Order Comment: Specimen Type: BLOOD SPECIMENOrdering Facility: [facility] Address:[address] [place], [place] [address]Performed By: #### 70853- 8, 2284-8, 2132-9, 2276-4 ####[facility] LABCLIA [id number] [address] [address] [place] AMERICAIron binding capacity [Mass/Vol]363 ug/zOOgfibh061-585CaopashbxTuscarawas Hospital Comment on above:Order Comment: Specimen Type: BLOOD SPECIMENOrdering Facility: [facility] Address:[address] [place] [address] Performed By: #### 49239-0, 4-8, 9, 2275-4 ####[facility] LABIA [id number] [place] [id number] [place] AMERICAIron/TIBC [Molar ratio]42.4 %Gsiudn52.0-57.0[facility] on above:Order Comment: Specimen Type: BLOOD SPECIMENOrdering Facility: [facility] Address:[address] [place], [place] [address]Performed By: #### 80676-3, 2283-8, 9, 4 ####[facility] LABIA [id number] [place] [address] [place] AMERICAVit B12 SerPl-ncon 08-72-9638Zjfjvoozs (Vitamin B12) [Mass/Vol]775 pg/lAOuppzs699-2840ItlrjntpmCoshocton Regional Medical Center on above: Order Comment: Specimen Type: BLOOD SPECIMENOrdering Facility: [facility] Address:[address] [place], [place] [address]Performed By: #### 86707- 8, 2283-8, 9, 4 ####[facility] LABCLIA [id number] [place] [address] [place] AMERICACNPNon 47-95-4153SSGAVjdbsmNaadiisxi Clinic ClevelandCNPNon 80-19-8732RBPUUukyqk Tuscarawas HospitalCNPNon 49-45-0489BVXEIgkllhVosabwrfm Clinic [place] 25([place])D3 SerPl-mCncon 71-98-482092043059-jvfnkvuzfnbxaq D3 [Mass/Vol]30.9 ng/mLLow 31.0-80.0[facility] on above:Order Comment: Specimen Type: BLOOD SPECIMENOrdering Facility: [facility] Address:[address] [place], [place] [address]Result Comment: Classification of 25 [place] Vitamin D status:Deficiency/Insufficiency: < or = 30 ng/ml.Sufficiency/Optimal Levels: 31-80 ng/mLToxicity: > 100 ng/mL.Test performed by chemiluminescent immunoassay. Performed By: #### 1989-3 ####[facility] LABCLIA [id number] [place] [id number] [place] 25-hydroxyvitamin D3 [Mass/Vol]on 96-29-4177Aejlnmoelbihmd and review of laboratory resultsAbrmalCMercy Health Willard HospitalThe reference range interval was based on an analysis of samples from healthy adults and may not pertain to children from 0-18 years old. [facility]-REACTIVE PROTEINon 39-23-7944XIN [Mass/Vol] mg/dLNINF - 0.9 mg/dLOhioHealth Grant Medical Center panel Auto (Bld)on 10-02-2024 Erythrocyte distribution width (RBC) [Ratio]16.2 %High11.5 - 15.0 %[facility]cci Hospital LimaHematocrit (Bld) [Volume fraction]41.3 %36.0 - 46.0 %[facility] Hemoglobin (Bld) [Mass/Vol]13.7 g/dL11.5 - 15.5 g/dLScci Hospital Lima Interpretation and review of laboratory resultsAbnormalCSelect Medical Cleveland Clinic Rehabilitation Hospital, Edwin ShawH (RBC) [Entitic mass]31.1 pg26.0 - 34.0 pgClevelRiver's Edge HospitalHC (RBC) [Mass/Vol]33.2 g/dL30.5 - 36.0 g/dLHarrison Community HospitalV (RBC) [Entitic vol]93.7 fL80.0 - 100.0 fLCcommunity memorial hospital ClinicNucleated RBC (Bld) [#/Vol]NINFClevelCleveland Clinic Medina HospitalPlatelet mean volume (Bld) [Entitic vol]10.1 fL9.0 - 12.7 fLCMercy Health Willard HospitalPlatelets (Bld) [#/Vol]265 10*3/uLScci Hospital LimaRBC (Bld) [#/Vol]4.41 10*6/uL3.90 - 5.20 m/uL [facility]cci Hospital LimaWBC (Bld) [#/Vol]10.07 10*3/uLMiami Valley Hospital Erythrocyte distribution width (RBC) [Ratio]16.2 %High11.5-15.0[facility] on above:Order Comment: Specimen Type: BLOOD SPECIMENOrdering Facility: [facility] Address:[address] [place], [place] [address]Performed By: #### 41895-4 ####[facility] LABIA [id number] [place], [place] [address]Cdorxkjsyx (Bld) [Volume fraction]41.3 %Izdfka35.0-46.0[facility] on above:Order Comment: Specimen Type: BLOOD SPECIMENOrdering Facility: [facility] Address:[address] [place], [place] [address]Performed By: #### 97054- 2 ####[facility] LABIA [id number] [place], [place] [address]Tuvopnbtqq (Bld) [Mass/Vol]13.7 g/kVBwufsf81.5-15.5 [facility] on above:Order Comment: Specimen Type: BLOOD SPECIMENOrdering Facility: [facility] Address:[address] [place], [place] [address]Performed By: #### 69884-9 ####[facility] LABIA [id number] [place], [place] [address]YWS (RBC) [Entitic mass]31.1 wbCudnxz86.0-34.0[facility] on above: Order Comment: Specimen Type: BLOOD SPECIMENOrdering Facility: [facility] Address:[address] [place], [place] [address]Performed By: #### 88317- 2 ####[facility] LABIA [id number] [place], [place] [address]TNXM (RBC) [Mass/Vol]33.2 g/wGMzofbo67.5-36.0[facility] on above:Order Comment: Specimen Type: BLOOD SPECIMENOrdering Facility: [facility] Address:[address] [place], [place] [address]Performed By: #### 58453-2 ####[facility] LABCLIA [id number] [place], [place] [address]WNK (RBC) [Entitic vol]93.7 pSZukejd92.0-100.0[facility] on above: Order Comment: Specimen Type: BLOOD SPECIMENOrdering Facility: [facility] Address:[address] [place], [place] [address]Performed By: #### 79465- 2 ####[facility] LABCLIA [id number] [place], [place] [address]Rpuriffza RBC (Bld) [#/Vol]10*3/uLNormal<0.01[facility] on above:Order Comment: Specimen Type: BLOOD SPECIMENOrdering Facility: [facility] Address:[address] [place], [place] [address]Performed By: #### 85372-8 ####[facility] LABCLIA [id number] [place], [place] [address]Ojlgphwx mean volume (Bld) [Entitic vol]10.1 fLNormal9.0-12.7CCoshocton Regional Medical Center on above:Order Comment: Specimen Type: BLOOD SPECIMENOrdering Facility: [facility] Address:[address] [place] [address] Performed By: #### 50447-4 ####[facility] LABCLIA [id number] [place], [place] [address]Udmupreka (Bld) [#/Vol]265 10*3/tTXzzeyz055-320CqvrcljkrKettering Memorial Hospital on above:Order Comment: Specimen Type: BLOOD SPECIMENOrdering Facility: [facility] Address:[address] [place], [place] [address]Performed By: #### 22475-9 ####[facility] LABCLIA [id number] [place], [place] [address]INF (Bld) [#/Vol]4.41 10*6/uLNormal3.90-5.20[facility] on above:Order Comment: Specimen Type: BLOOD SPECIMENOrdering Facility: [facility] Address:[address] [place], [place] [address]Performed By: #### 66448-7 ####[facility] LABCLIA [id number] [place], [place] [address]ILT (Bld) [#/Vol]10.07 10*3/uLNormal3.70-11.00[facility] on above: Order Comment: Specimen Type: BLOOD SPECIMENOrdering Facility: [facility] Address:[address] [place], [place] [address]Performed By: #### 71063- 2 ####[facility]ENTERDAPH[facility] LABCLIA [id number] [place], [place] [address]JWB SerPl-mCncon 23-88-5660IQW [Mass/Vol]mg/LNormal<0.9 [facility] on above:Order Comment: Specimen Type: BLOOD SPECIMENOrdering Facility: [facility] Address:[address] [place], [place] [address]Performed By: #### 1988-5 ####[facility] LABCLIA [id number] [place] [id number] [place] AMERICACRP [Mass/Vol]on 17-14-7436Cxeklvhpeyobis and review of laboratory resultsNormalCleveland [facility] Hospitals Geneva Medical CenterComprehensive metabolic 2000 panel Ordered By: Josse Merlos on 63-64-7017Ieyykdg [Mass/Vol]3.9 g/dL3.9 - 4.9 g/dL [facility] ClinicALP [Catalytic activity/Vol]61 U/L34 - 123 U/LCleveland Clinic ALT [Catalytic activity/Vol]41 U/LHigh7 - 38 U/LCleveland ClinicAnion gap [Moles/Vol]14 mmol/L8 - 15 mmol/LCleveland ClinicAST [Catalytic activity/Vol]18 U/L13 - 35 U/LCleveland ClinicBilirubin [Mass/Vol]0.2 mg/dL0.2 - 1.3 mg/dL [facility] ClinicCalcium [Mass/Vol]9.6 mg/dL8.5 - 10.2 mg/dLScci Hospital Lima Chloride [Moles/Vol]107 mmol/L98 - 107 mmol/LCleveland ClinicCO2 [Moles/Vol]20 mmol/LLow22 - 30 mmol/LCleveland ClinicCreatinine [Mass/Vol]0.59 mg/dL0.58 - 0.96 mg/dLLewisville ClinicGFR/1.73 sq M.predicted among non-blacks MDRD (S/P/Bld) [...] not accurately reflect actual GFR.Glucose [Mass/Vol] 216 mg/kUXeqp64 - 99 mg/dLScci Hospital LimaComment on above:The [place] Diabetes Association (ADA) provides guidance for cutoff [...] Standards of Medical Care in Diabetes 2016, [place] Diabetes Association. Diabetes Care. 2016.39(Suppl 1). Interpretation and review of laboratory resultsAbnormalCleveland ClinicPotassium [Moles/Vol]4.1 mmol/L3.7 - 5.1 mmol/LCleveland ClinicProtein [Mass/Vol]6.8 g/dL 6.3 - 8.0 g/dLClesouthwest general health center ClinicSodium [Moles/Vol]141 mmol/L136 - 144 mmol/L [facility] Hospital LimaUrea nitrogen [Mass/Vol]19 mg/dL7 - 21 mg/dLAvita Health System Ontario HospitalComprehensive metabolic 2000 panelon 36-01-8306Vgzfrcr [Mass/Vol]3.9 g/dLNormal3.9-4.9CCoshocton Regional Medical Center on above:Order Comment: Specimen Type: BLOOD SPECIMENOrdering Facility: [facility] Address:[address] [place], [place] [address]Performed By: #### 23051- 8 ####[facility] LABCLIA [id number] [place], [place] [address]ZIQ [Catalytic activity/Vol]61 U/LWvglfq25-696UlqvfalezKettering Memorial Hospital on above:Order Comment: Specimen Type: BLOOD SPECIMENOrdering Facility: [facility] Address:[address] [place], [place] [address]Performed By: #### 15277-5 ####[facility] LABCLIA [id number] [place], [place] [address]PUX [Catalytic activity/Vol]41 U/LHigh7-38[facility] on above:Order Comment: Specimen Type: BLOOD SPECIMENOrdering Facility: [facility] Address:[address] [place], [place] [address]Performed By: #### 34363- 8 ####[facility] LABCLIA [id number] [place], [place] [address]Nvbpb gap [Moles/Vol]14 mmol/LNormal8-15[facility] on above:Order Comment: Specimen Type: BLOOD SPECIMENOrdering Facility: [facility] Address:[address] [place], [place] [address]Performed By: #### 46384-2 ####[facility] LABCLIA [id number] [place], [place] [address]BPZ [Catalytic activity/Vol]18 U/FFudgro51-65ItxllorgbKettering Memorial Hospital on above:Order Comment: Specimen Type: BLOOD SPECIMENOrdering Facility: [facility] Address:[address] [place], [place] [address]Performed By: #### 31750-3 ####[facility] LABCLIA [id number] [place] [address] Bilirubin [Mass/Vol]0.2 mg/dLNormal0.2-1.3CCoshocton Regional Medical Center on above:Order Comment: Specimen Type: BLOOD SPECIMENOrdering Facility: [facility] Address:[address] [place], [place] [address]Performed By: #### 94413-5 ####[facility] LABCLIA [id number] [facility], [place] [address]Liimvwl [Mass/Vol]9.6 mg/dLNormal8.5-10.2CCoshocton Regional Medical Center on above:Order Comment: Specimen Type: BLOOD SPECIMENOrdering Facility: [facility] Address:[address] [place], [place] [address]Performed By: #### 81870-6 ####[facility] LABCLIA [id number] [facility], [place] [address]Qlkdxadu [Moles/Vol]107 mmol/MVhstqn55-254TnhnioomxKettering Memorial Hospital on above: Order Comment: Specimen Type: BLOOD SPECIMENOrdering Facility: [facility] Address:[address] [place], [place] [address]Performed By: #### 87009- 8 ####[facility] LABCLIA [id number] [facility] [place] [address]AW2 [Moles/Vol]20 mmol/DNfa05-76KopsvjsonKettering Memorial Hospital on above:Order Comment: Specimen Type: BLOOD SPECIMENOrdering Facility: [facility] Address:[address] [place], [place] [address]Performed By: #### 80247-4 ####[facility] LABCLIA [id number] [place], [place] [address]Qbechjnvwj [Mass/Vol]0.59 mg/dL Normal0.58-0.96[facility] on above:Order Comment: Specimen Type: BLOOD SPECIMENOrdering Facility: [facility] Address:[address] [place], [place] [address]Performed By: #### 47488-0 ####[facility] LABCLIA [id number] [place], [place] [address]Yygqqfzvfm and Glomerular filtration rate.predicted panel (S/P/Bld)115 mL/min/1.73m???Normal>=60[facility] on above:Order Comment: Specimen Type: BLOOD SPECIMENOrdering Facility: [facility] Address:[address] [place], [place] [address]Result Comment: Estimated Glomerular Filtration Rate (eGFR) is [...] not accurately reflect actual GFR.Performed By: #### 16301-8 ####[facility] LABCLIA [id number] [place], [place] [address]Hohcdhj [Mass/Vol]216 mg/qFVgni82-64AuemwlkubKettering Memorial Hospital on above:Order Comment: Specimen Type: BLOOD SPECIMENOrdering Facility: [facility] Address:[address] [place], [place] [address]Result Comment: The [place] Diabetes Association (ADA) provides guidance for cutoff [...] Standards of Medical Care in Diabetes 2016, [place] Diabetes [employer]. Diabetes Care. 2016.39(Suppl 1).Performed By: #### 82304-4 ####[facility] LABCLIA [id number] [place], [place] [address]Awzwunotp [Moles/Vol]4.1 mmol/LNormal3.7-5.1CCoshocton Regional Medical Center on above:Order Comment: Specimen Type: BLOOD SPECIMENOrdering Facility: [facility] Address:[address] [place], [place] [address]Performed By: #### 69186-6 ####[facility] LABCLIA [id number] [place], [place] [address]Uwspgsr [Mass/Vol]6.8 g/dLNormal6.3-8.0[facility] on above:Order Comment: Specimen Type: BLOOD SPECIMENOrdering Facility: [facility] Address:[address] [place], [place] [address]Performed By: #### 91164- 8 ####[facility] LABCLIA [id number] [place], [place] [address]Blhqhi [Moles/Vol]141 mmol/UChegia789-955WhbtejgssKettering Memorial Hospital on above:Order Comment: Specimen Type: BLOOD SPECIMENOrdering Facility: [facility] Address:[address] [place], [place] [address]Performed By: #### 80990-1 ####[facility] LABCLIA [id number] [place], [place] [address]Ktsv nitrogen [Mass/Vol]19 mg/dLNormal7-21[facility] on above:Order Comment: Specimen Type: BLOOD SPECIMENOrdering Facility: [facility] Address:[address] [place], [place] [address]Performed By: #### 55301-3 ####[facility] LABCLIA [id number] [place], [place] [address]RPM Westergren method (Bld) [Velocity]on 10-67-1619IGS (Bld) [Velocity]28 mm/hHighScci Hospital LimaInterpretation and review of laboratory resultsAbnormalCkettering health hamiltonand University Hospitals Geneva Medical CenterESR (Bld) [Velocity]28 mm/hHigh0-20Tuscarawas HospitalComment on above:Order Comment: Specimen Type: BLOOD SPECIMENOrdering Facility: [facility] Address:[address] [place], [place] [address]Performed By: #### 4537-7 ####[facility] LABCLIA [id number] [place] [address] [place] OF AMERICAVITAMIN D 25 HYDROXYon 816311-kaocejjgmpqmqy D3 [Mass/Vol]30.9 ng/mLLow31.0 - 80.0 ng/mLCMercy Health Willard HospitalComment on above: Classification of 25 [place] Vitamin D status: Deficiency/Insufficiency: < or = 30 ng/ml. Sufficiency/Optimal Levels: 31-80 ng/mL Toxicity: > 100 ng/mL. Test performed by chemiluminescent immunoassay. DNA EXTRACTION BLOODOrdered By: Dominga Araujo on 26-12-2104JDVIVVPRCPXAL (NG/UL)189.3 ng/ulScci Hospital LimaTotal Yield94.65 ugScci Hospital LimaCommymichigan medical center sault on above:Specimens will be available for 3 years from date of collection. To order testing on this specimen for [facility] patients, please place an [facility] order for DNA and RNA for Clinical Testing (SQNUCADD). To order for patients outside of the [facility] system, please request DNA and RNA for Clinical Testing, order code NUCADD. If additional paperwork is required for testing, please email completed forms to . VOLUME (UL) OF [id number] uLMiami Valley HospitalCNOVon 84-53-4054SVNK NormalTuscarawas HospitalDNA EXTRACTION BLOODon 66-65-8460HGSZXQXLNIIUY (NG/UL)189.3 ng/ulNormalCCoshocton Regional Medical Center on above:Order Comment: Specimen Type: BLOOD SPECIMENOrdering Facility: [facility] Address:[address] [place], [place] [address]Performed By: #### NUCBLD ####[facility] LIMSCLIA [id number] [place] [address] [place] AMERICATOTAL YIELD94.65 ugSelect Medical [facility] on above:Order Comment: Specimen Type: BLOOD SPECIMENOrdering Facility: [facility] Address:[address] [place], [place] [address]Result Comment: Specimens will be available for 3 years from date of collection. To order testing on this specimen for [facility] patients, please place an [facility] order for DNA and RNA for Clinical Testing (SQNUCADD). To order for patients outside of the [facility] system, please request DNA and RNA for Clinical Testing, order code NUCADD.If additional paperwork is required for testing,please email completed forms to . Performed By: #### NUCBLD ####[facility] LIMSCLIA [id number] [place] [address] [place] AMERICAVOLUME (UL) OF [id number] uLSelect Medical [facility] on above:Order Comment: Specimen Type: BLOOD SPECIMENOrdering Facility: [facility] Address:[address] [place], [place] [address]Performed By: #### NUCBLD ####[facility] LIMSCLIA [id number] [place] [address] [place] AMERICACNPNon 38-76-6319JHPEUwbsnkWglyqzxezMemorial Health SystemCNPNon 09-13-2024 CNPNNMemorial Health SystemCNOVSPon 12-02-6471WOAIPORlwdjiUchfjpyin Clinic ClevelandCNPNon 11-77-8626VWECZnnkfcXteiqcemhMemorial Health System IMMUNOGLOBULINS,IGG,IGA,IGMon 23-75-6783DqI [Mass/Vol]163 mg/oKPypxha40-322 [facility] on above:Order Comment: Specimen Type: BLOOD SPECIMENOrdering Facility: [facility] Address:[address] [place], [place] [address]Performed By: #### SERIMM ####[facility] LABCLIA [id number] [address] [address] [place] OF AMERICAIgG [Mass/Vol]599 mg/qQKah651-7659NghnsqrrpKettering Memorial Hospital on above:Order Comment: Specimen Type: BLOOD SPECIMENOrdering Facility: [facility] Address:[address] [place], [place] [address]Performed By: #### SERIMM ####[facility] LABCLIA [id number] [place] [address] [place] AMERICAIgM [Mass/Vol]387 mg/dL Dxep41-718OuevuukgtKettering Memorial Hospital on above:Order Comment: Specimen Type: BLOOD SPECIMENOrdering Facility: [facility] Address:[address] [place], [place] [address]Performed By: #### SERIMM ####[facility] LABCLIA [id number] [place] [address] [place] AMERICALaboratory - Chemistry and Chemistry - challengeon 67-38-1088XhC [Mass/Vol]163 mg/dL70 - 400 mg/dLScci Hospital LimaIgG [Mass/Vol]599 mg/kYFjd402 - 1600 mg/dLScci Hospital LimaIgM [Mass/Vol]387 mg/rNPpuz52 - 230 mg/dLScci Hospital LimaNo Panel Informationon 37-61-9353Tzkyfftvdjlhdd and review of laboratory resultsAbnormalCFairfield Medical Center W Auto Differential panel (Bld)on 26-33-0027Hrsxpyedh (Bld) [#/Vol]0.06 10*3/uLNormal <0.11CCoshocton Regional Medical Center on above:Order Comment: Specimen Type: BLOOD SPECIMENOrdering Facility: [facility] Address:[address] [place], [place] [address]Performed By: #### 81376-2 ####[facility] LABCLIA [id number] [place] [address] Basophils/100 WBC (Bld)0.5 %NormalKettering Memorial Hospital on above: Order Comment: Specimen Type: BLOOD SPECIMENOrdering Facility: [facility] Address:[address] [place], [place] [address]Performed By: #### 55236- 8 ####[facility] LABIA [id number] [place], [place] [address]Wdqhbvssjhsq cell count method Nom (Bld)AutoNormal [facility] on above:Order Comment: Specimen Type: BLOOD SPECIMENOrdering Facility: [facility] Address:[address] [place], [place] [address]Performed By: #### 56378-4 ####[facility] LABIA [id number] [place], [place] [address]Itmnpcrxpmu (Bld) [#/Vol]0.08 10*3/uLNormal<0.46[facility] on above: Order Comment: Specimen Type: BLOOD SPECIMENOrdering Facility: [facility] Address:[address] [place], [place] [address]Performed By: #### 21155- 8 ####[facility] LABIA [id number] [place], [place] [address]Rujkquccljn/100 WBC (Bld)0.6 %NormalKettering [facility] Hospital on above:Order Comment: Specimen Type: BLOOD SPECIMENOrdering Facility: [facility] Address:[address] [place], [place] [address]Performed By: #### [id number] ####[facility]IA [id number] [place], [place] [address]Vmetevnqczg distribution width (RBC) [Ratio]16.0 %High11.5-15.0[facility] on above:Order Comment: Specimen Type: BLOOD SPECIMENOrdering Facility: [facility] Address:[address] [place], [place] [address]Performed By: #### [id number]- 8 ####[facility] LABVER[facility] [id number] [place], [place] [address]Bnaqiwktpt (Bld) [Volume fraction]42.9 %Qafdmj24.0-46.0 [facility] on above:Order Comment: Specimen Type: BLOOD SPECIMENOrdering Facility: [facility] Address:[address] [place], [place] [address]Performed By: #### [id number] ####[facility]IA [id number] [place], [place] [address]Nkzedhxnoq (Bld) [Mass/Vol]13.8 g/nLLfmmsl23.5-15.5CCoshoct[facility] Medical Center on above: Order Comment: Specimen Type: BLOOD SPECIMENOrdering Facility: [facility] Address:[address] [place], [place] [address]Performed By: #### 89572- 8 ####[facility] LABIA [id number] [place], [place] [address]Xspnuwcq granulocytes (Bld) [#/Vol]0.23 10*3/uLHigh<0.10 [facility] on above:Order Comment: Specimen Type: BLOOD SPECIMENOrdering Facility: [facility] Address:[address] [place], [place] [address]Performed By: #### 39780-7 ####[facility] LABIA [id number] [place], [place] [address]Uxldiuks granulocytes/100 WBC (Bld)1.8 %NormalKettering Memorial Hospital on above: Order Comment: Specimen Type: BLOOD SPECIMENOrdering Facility: [facility] Address:[address] [place], [place] [address]Performed By: #### 99634- 8 ####[facility] LABIA [id number] [place], [place] [address]Mqdxhtgdwba (Bld) [#/Vol]2.07 10*3/uLNormal1.00-4.00 [facility] ClevelandComment on above:Order Comment: Specimen Type: BLOOD SPECIMENOrdering Facility: [facility] Address:[address] [place], [place] [address]Performed By: #### 94218-4 ####[facility] LABCLIA [id number] [place], [place] [address]Tyduhsypaux/100 WBC (Bld)15.8 %NormalKettering Memorial Hospital on above:Order Comment: Specimen Type: BLOOD SPECIMENOrdering Facility: [facility] Address:[address] [place], [place] [address]Performed By: #### 00220-3 ####[facility] LABCLIA [id number] [place], [place] [address]HKY (RBC) [Entitic mass]30.2 keTsykao97.0-34.0[facility] on above:Order Comment: Specimen Type: BLOOD SPECIMENOrdering Facility: [facility] Address:[address] [place], [place] [address]Performed By: #### 58417-5 ####[facility] LABCLIA [id number] [place], [place] [address]ARZD (RBC) [Mass/Vol]32.2 g/tDGlovhp29.5-36.0[facility] on above: Order Comment: Specimen Type: BLOOD SPECIMENOrdering Facility: [facility] Address:[address] [place], [place] [address]Performed By: #### 37691- 8 ####[facility] LABCLIA [id number] [place], [place] [address]DOF (RBC) [Entitic vol]93.9 sXLzjgyh57.0-100.0[facility] on above:Order Comment: Specimen Type: BLOOD SPECIMENOrdering Facility: [facility] Address:[address] [place], [place] [address]Performed By: #### 62264-3 ####[facility] LABCLIA [id number] [place], [place] [address]Umzfsicgi (Bld) [#/Vol]0.86 10*3/uLNormal<0.87[facility] on above:Order Comment: Specimen Type: BLOOD SPECIMENOrdering Facility: [facility] Address:[address] [place], [place] [address]Performed By: #### 61529- 8 ####[facility] LABIA [id number] [place], [place] [address]Ypjmfalqo/100 WBC (Bld)6.6 %NormalKettering Memorial Hospital on above:Order Comment: Specimen Type: BLOOD SPECIMENOrdering Facility: [facility] Address:[address] [place], [place] [address]Performed By: #### 91382-1 ####[facility] LABIA [id number] [place], [place] [address]Womdqzhmbvk (Bld) [#/Vol]9.82 10*3/uLHigh1.45-7.50[facility] on above:Order Comment: Specimen Type: BLOOD SPECIMENOrdering Facility: [facility] Address:[address] [place], [place] [address]Performed By: #### 55322-8 ####[facility] LABIA [id number] [place], [place] [address]Xnlbblbjvwf/100 WBC (Bld)74.7 %NormalKettering Memorial Hospital on above:Order Comment: Specimen Type: BLOOD SPECIMENOrdering Facility: [facility] Address:[address] [place], [place] [address]Performed By: #### 21528-6 ####[facility] LABIA [id number] [place], [place] [address]Jysbedugd RBC (Bld) [#/Vol] 10*3/uLNormal<0.01[facility] on above:Order Comment: Specimen Type: BLOOD SPECIMENOrdering Facility: [facility] Address:[address] [place], [place] [address]Performed By: #### 14935-7 ####[facility] LABCLIA [id number] [place], [place] [address]Decoxhlhy RBC/100 WBC (Bld) [Ratio]0.0 /100 WBCNormal [facility] on above:Order Comment: Specimen Type: BLOOD SPECIMENOrdering Facility: [facility] Address:[address] [place], [place] [address]Performed By: #### 12015-0 ####[facility] LABCLIA [id number] [place], [place] [address]Gwssrkyu mean volume (Bld) [Entitic vol]9.5 fLNormal9.0-12.7CCoshocton [facility] on above:Order Comment: Specimen Type: BLOOD SPECIMENOrdering Facility: [facility] Address:[address] [place] [address] Performed By: #### 32201-7 ####[facility] LABCLIA [id number] [place], [place] [address]Ttiouvjit (Bld) [#/Vol]291 10*3/lXCaxloi455-183MbsmuodtrKettering Memorial Hospital on above:Order Comment: Specimen Type: BLOOD SPECIMENOrdering Facility: [facility] Address:[address] [place], [place] [address]Performed By: #### 94382-1 ####[facility] LABCLIA [id number] [place], [place] [address]PGA (Bld) [#/Vol]4.57 10*6/uLNormal3.90-5.20[facility] on above:Order Comment: Specimen Type: BLOOD SPECIMENOrdering Facility: [facility] Address:[address] [place], [place] [address]Performed By: #### 53463-5 ####[facility] LABCLIA [id number] [place], [place] [address]MCV (Bld) [#/Vol]13.12 10*3/uLHigh3.70-11.00[facility] on above: Order Comment: Specimen Type: BLOOD SPECIMENOrdering Facility: [facility] Address:[address] [place], [place] [address]Performed By: #### 27199- 8 ####[facility] LABCLIA [id number] [place], [place] [address]Vnlwnuvkhlsrd metabolic 2000 panelon 56-59-0177Mktlqgy [Mass/Vol]4.2 g/dLNormal3.9-4.9CCoshocton [facility] on above:Order Comment: Specimen Type: BLOOD SPECIMENOrdering Facility: [facility] Address:[address] [place], [place] [address]Performed By: #### 30328- 8 ####[facility] LABIA [id number] [place], [place] [address]WKL [Catalytic activity/Vol]69 U/THxnpnx60-582NbzbyoxasKettering Memorial Hospital on above:Order Comment: Specimen Type: BLOOD SPECIMENOrdering Facility: [facility] Address:[address] [place], [place] [address]Performed By: #### 17522-8 ####[facility] LABCLIA [id number] [place], [place] [address]IMZ [Catalytic activity/Vol]38 U/LNormal7-38[facility] on above:Order Comment: Specimen Type: BLOOD SPECIMENOrdering Facility: [facility] Address:[address] [place], [place] [address]Performed By: #### 99432- 8 ####[facility] LABCLIA [id number] [place], [place] [address]Pfchm gap [Moles/Vol]12 mmol/LNormal8-15[facility] on above:Order Comment: Specimen Type: BLOOD SPECIMENOrdering Facility: [facility] Address:[address] [place], [place] [address]Performed By: #### 90794-3 ####[facility] LABCLIA [id number] [place], [place] [address]GMC [Catalytic activity/Vol]15 U/MJhmvdw80-11JjqmuokfuKettering Memorial Hospital on above:Order Comment: Specimen Type: BLOOD SPECIMENOrdering Facility: [facility] Address:[address] [place], [place] [address]Performed By: #### 19731-4 ####[facility] LABCLIA [id number] [place] [address] Bilirubin [Mass/Vol]0.2 mg/dLNormal0.2-1.3CCoshoct[facility] on above:Order Comment: Specimen Type: BLOOD SPECIMENOrdering Facility: [facility] Address:[address] [place], [place] [address]Performed By: #### 86932-6 ####[facility] LABCLIA [id number] [place], [place] [address]Esmxicm [Mass/Vol]10.3 mg/dLHigh8.5-10.2CCoshoct[facility] on above:Order Comment: Specimen Type: BLOOD SPECIMENOrdering Facility: [facility] Address:[address] [place], [place] [address]Performed By: #### 26493-7 ####[facility] LABCLIA [id number] [place], [place] [address]Ufieefph [Moles/Vol]101 mmol/PIiqmng15-377MzzohxckoKettering Memorial Hospital on above: Order Comment: Specimen Type: BLOOD SPECIMENOrdering Facility: [facility] Address:[address] [place], [place] [address]Performed By: #### 28561- 8 ####[facility] LABCLIA [id number] [facility] [place], [place] [address]ZJ0 [Moles/Vol]26 mmol/RKvyobe35-14PmkhnebygKettering Memorial Hospital on above:Order Comment: Specimen Type: BLOOD SPECIMENOrdering Facility: [facility] Address:[address] [place], [place] [address]Performed By: #### 89423-1 ####[facility] LABCLIA [id number] [place], [place] [address]Truucoaxbg [Mass/Vol]0.64 mg/dL Normal0.58-0.96[facility] on above:Order Comment: Specimen Type: BLOOD SPECIMENOrdering Facility: [facility] Address:[address] [place], [place] [address]Performed By: #### 72267-3 ####[facility] LABCLIA [id number] [place], [place] [address]Qnsvcqlkkh and Glomerular filtration rate.predicted panel (S/P/Bld)113 mL/min/1.73m???Normal>=60[facility] on above:Order Comment: Specimen Type: BLOOD SPECIMENOrdering Facility: [facility] Address:[address] [place], [place] [address]Result Comment: Estimated Glomerular Filtration Rate (eGFR) is [...] not accurately reflect actual GFR.Performed By: #### 91383-7 ####[facility] LABCLIA [id number] [place], [place] [address]Ahlypmh [Mass/Vol]139 mg/cJKmpt97-66YzjmjffcqKettering Memorial Hospital on above:Order Comment: Specimen Type: BLOOD SPECIMENOrdering Facility: [facility] Address:[address] [place] [address]Yfwnaf Comment: The [place] [employer] (ADA) provides guidance for cutoff [...] Standards of Medical Care in Diabetes 2016, [place] [employer]. Diabetes Care. 2016.39(Suppl 1).Performed By: #### 15107-7 ####[facility] LABCLIA [id number] [place], [place] [address]Pnqrzezdd [Moles/Vol]4.4 mmol/LNormal3.7-5.1CCoshoct[facility] on above:Order Comment: Specimen Type: BLOOD SPECIMENOrdering Facility: [facility] Address:[address] [place], [place] [address]Performed By: #### 25486-0 ####[facility] LABCLIA [id number] [place], [place] [address]Ffqveib [Mass/Vol]7.1 g/dLNormal6.3-8.0[facility] on above:Order Comment: Specimen Type: BLOOD SPECIMENOrdering Facility: [facility] Address:[address] [place], [place] [address]Performed By: #### 20787- 8 ####[facility] LABCLIA [id number] [place], [place] [address]Vtaqta [Moles/Vol]139 mmol/ZKzgkdd131-551EytzeumpcKettering Memorial Hospital on above:Order Comment: Specimen Type: BLOOD SPECIMENOrdering Facility: [facility] Address:[address] [place], [place] [address]Performed By: #### 50570-6 ####[facility] LABCLIA [id number] [place], [place] [address]Jhix nitrogen [Mass/Vol]18 mg/dLNormal7-21[facility] on above:Order Comment: Specimen Type: BLOOD SPECIMENOrdering Facility: [facility] Address:[address] [place], [place] [address]Performed By: #### 93208-3 ####[facility] LABCLIA [id number] [place], [place] [address]Pnrnqizj SerPl-mCncon 48-38-5793Qdichklj [Mass/Vol]43.1 ng/iJFkedli80.7-205.1CCoshoct[facility] on above:Order Comment: Specimen Type: BLOOD SPECIMENOrdering Facility: [facility] Address:[address] [place], [place] [address]Performed By: #### 2132-9, 2284-8, 2276-4, 27504-6 ####[facility] LABCLIA [id number] [place] [address] [place] OF AMERICAFolate SerPl-mCncon 83-48-8794Nplcdz [Mass/Vol]ng/mLNormal>4.7CCos[facility] on above:Order Comment: Specimen Type: BLOOD SPECIMENOrdering Facility: [facility] Address:[address] [place], [place] [address]Result Comment: A result of > 20 ng/mL is not necessarily indicative of a pathologic or treatable condition: it reflects a limitation of the test methodology.Assay reference range: 4.8 to 24.2 ng/mL. Suitable for detection of folate deficiency.Reference:Folate III (Folate III) [package insert V 1.0 B[place]ian]. [facility], [place], [place]: March 2015.Performed By: #### 2132-9, 2284-8, 2276-4, 62656-5 ####[facility] LABCLIA [id number] [place] [address] [place] OF AMERICAIgG SerPl-mCnc on 88-11-1313VuI [Mass/Vol]729 mg/aVQpbyul052-6720IcbvadfcoTuscarawas Hospital Comment on above:Order Comment: Specimen Type: BLOOD SPECIMENOrdering Facility: [facility] Address:[address] [place] [address] Performed By: #### 2465-3 ####[facility] LABIA [id number] [place] [address] [place] [employer] binding capacity panelon 98-15-8197Jubm [Mass/Vol]80 ug/dLNormal 41-186[facility] on above:Order Comment: Specimen Type: BLOOD SPECIMENOrdering Facility: [facility] Address:[address] [place], [place] [address]Performed By: #### 2132-9, 2284-8, 2276-4, 21660-3 ####[facility] LABIA [id number] [address] STATES OF AMERICAIron binding capacity [Mass/Vol] 416 ug/lRCllt449-146GlejskbnpKettering Memorial Hospital on above:Order Comment: Specimen Type: BLOOD SPECIMENOrdering Facility: [facility] Address:[address] [place], [place] [address]Performed By: #### 2132-9, 2284-8, 2276-4, 06584-6 ####[facility] LABIA [id number] [place] [address] [place] AMERICAIron/TIBC [Molar ratio]19.2 %Fbhdcw05.0-57.0[facility] on above:Order Comment: Specimen Type: BLOOD SPECIMENOrdering Facility: [facility] Address:[address] [place], [place] [address]Performed By: #### 2132- 9, 2284-8, 2276-4, 90059-9 ####[facility] LABCLIA [id number] [place] [address] [place] AMERICAVit B12 SerPl-mCncon 02-79-6014Niuqlpimy (Vitamin B12) [Mass/Vol]555 pg/yUBfhdjl149-7518 [facility] on above:Order Comment: Specimen Type: BLOOD SPECIMENOrdering Facility: [facility] Address:[address] [place], [place] [address]Performed By: #### 2132-9, 2284-8, 2276-4, 00644-1 ####[facility] LABCLIA [id number] [place] [address] [place] AMERICACNPNon 09-23-8434LETBMvvzmw [facility] Thyroid glandon 43-03-40[place] [address] Ultrasound Report Signed Patient: ARIADNA HALEY MR#: [id number] : 1980 Acct:[id number] Age/Sex: 43 / F ADM Date: 08/24/24 Loc: US Attending Dr: Gordo Barfield M.D. Ordering Physician: Gordo Barfield M.D. Date of Service: 08/24/24 Procedure(s): US thyroid Accession Number(s): [id number] cc: GAY DE LA TORRE ; Gordo Barfield M.D. [address] [address] Patient Name: ARIADNA HALEY MRN: [id number] date: 1980 Sex: F Assigned Patient Location: US Current Patient Location: US Accession/Order Number: [id number] Exam Date: 08/24/2024 09:09 Report Date: 08/24/2024 [...] this was thought to be cystic. The vendor management associate today considered it solid and it was given TI-RADS 4 classification. No internal color flow is shown. Size has not significantly changed when measuring in a comparable manner. No other nodularity is seen. US/US thyroid IMPRESSION: SIMILAR SMALL LEFT THYROID NODULE. FOLLOW-UP IN ONE YEAR IS SUGGESTED. Impression dictated by: Simin Nelson M.D.08/24/2024 9:22 AM Dictation Location: [place] [address] Electronically authenticated by: [id number] Y Date: 08/24/2024 09:22 Dictated By: Simin Nelson M.D. Signed By: 08/24/24923 DD/ 1 TD/TT: Lead Assistant Manager:DARLENEHRadiology, Radiologist, - 08/24/2024 [place] [address] Ultrasound Report Signed Patient: ARIADNA HALEY MR#: [id number] : 1980 Acct:[id number] Age/Sex: 43 / F ADM Date: 08/24/24 Loc: US Attending Dr: Gordo Barfield M.D. Ordering Physician: Gordo Barfield M.D. Date of Service: 08/24/24 Procedure(s): US thyroid Accession Number(s): [id number] cc: GAY DE LA TORRE ; Gordo Barfield M.D. [place] [address] Patient Name: ARIADNA HALEY MRN: [id number] date: 1980 Sex: F Assigned Patient Location: US Current Patient Location: US Accession/Order Number: [id number] Exam Date: 08/24/2024 09:09 Report Date: 08/24/2024 [...] this was thought to be cystic. The vendor management associate today considered it solid and it was given TI-RADS 4 classification. No internal color flow is shown. Size has not significantly changed when measuring in a comparable manner. No other nodularity is seen. US/US thyroid IMPRESSION: SIMILAR SMALL LEFT THYROID NODULE. FOLLOW-UP IN ONE YEAR IS SUGGESTED. Impression dictated by: Simin Nelson M.D.08/24/2024 9:22 AM Dictation Location: [place] [address] Electronically authenticated by: [id number] Y Date: 08/24/2024 09:22 Dictated By: Simin Nelson M.D. Signed By: 08/24/24923 DD/ 1 TD/TT: Lead Assistant Manager: MABLE HealthcareRadiology Study observation (narrative)NOMLucinda HealthcareUS Thyroid glandOrdered By: Radiologist Radiology on 25-57-4289OADV Evoz Work Phone: cNPNon 98-42-7071NNNNOjdljsAzmudsioeMemorial Health System HCG ( test) IA.rapid Ql (U)Ordered By: Adolfo Kang on 49-91-8224GYU ( test) Ql (U)Urine human chorionic gonadotropin (hCG) detection by immunoassayUniversity Hospitals St. John Medical CenterHCG,Urineon 91-32-8076Oyxy HCG ( test) Ql (U)NegativeNoWake Forest Baptist Health [facility]ie [facility] Physician GroupComment on above:Result Comment: PERFORMED BY: [address] [address] PATHOLOGIST LABORATORY CHIEF HAYDEN LLAMAS M.D.Performed By: #### UHCG #### [place] [address] USACNOVon 66-95-2668BODDIgcqkqDxzxxbpsn Clinic ClevelandCNPN on 41-19-1998LWAYZzhwzxFzaeellab Clinic Jrjypobml48([place])D3 SerPl-mCncon 665806-gembhogbvzyzdo D3 [Mass/Vol]28.5 ng/mLLow31.0-80.0[facility] on above:Order Comment: Specimen Type: BLOOD SPECIMENOrdering Facility: [facility] Address:[address] [place], [place] [address]Result Comment: Classification of 25 [place] Vitamin D status:Deficiency/Insufficiency: < or = 30 ng/ml.Sufficiency/Optimal Levels: 31- 80 ng/mLToxicity: > 100 ng/mL.Test performed by chemiluminescent immunoassay. Performed By: #### 1989-3 ####[facility] LABCLIA [id number] [place] [address] [place] CBC panel Auto (Bld)on 05-94-4991Xcipyiqddpu distribution width (RBC) [Ratio] 14.3 %Bqlfui42.5-15.0[facility] on above:Order Comment: Specimen Type: BLOOD SPECIMENOrdering Facility: [facility] Address:[address] [place], [place] [address]Performed By: #### 53100-3 ####AMHGILA REGIONAL MEDICAL CENTERAnahi [facility] LABIA [id number] [place] [address] [place] AMERICAHematocrit (Bld) [Volume fraction]41.3 %Efkhqc95.0-46.0 [facility] on above:Order Comment: Specimen Type: BLOOD SPECIMENOrdering Facility: [facility] Address:[address] [place], [place] [address]Performed By: #### 55290-1 ####[facility]AMPUSAnahi [facility] LABIA [id number] [place] [address] [place] AMERICAHemoglobin (Bld) [Mass/Vol]13.5 g/rZAkojtm01.5-15.5CCoshocton [facility] on above:Order Comment: Specimen Type: BLOOD SPECIMENOrdering Facility: [facility] Address:[address] [place], [place] [address]Performed By: #### 58096-4 ####[facility] LABCLIA [id number] [place] [address] [facility] (RBC) [Entitic mass]30.4 bhJfnlfi03.0-34.0[facility] on above:Order Comment: Specimen Type: BLOOD SPECIMENOrdering Facility: [facility] Address:[address] [place], [place] [address]Performed By: #### 22078-1 ####[facility]AMPUSAnahi [facility] LABIA [id number] [place] [id number] [facility] (RBC) [Mass/Vol]32.7 g/oMIjwako38.5-36.0[facility] on above: Order Comment: Specimen Type: BLOOD SPECIMENOrdering Facility: [facility] Address:[address] [place], [place] [address]Performed By: #### 54292- 2 ####[facility]AMPUSAnahi [facility] LABIA [id number] [address] (RBC) [Entitic vol]93.0 tDSsgshk90.0-100.0[facility] on above:Order Comment: Specimen Type: BLOOD SPECIMENOrdering Facility: [facility] Address:[address] [place], [place] [address]Performed By: #### 70908-7 ####[facility]AMPUSAnahi [facility] LABIA [id number] [place] [id number] [facility]ICAL CENTERucleated RBC (Bld) [#/Vol]10*3/uL Normal<0.01[facility] on above:Order Comment: Specimen Type: BLOOD SPECIMENOrdering Facility: [facility] Address:[address] [place], [place] [address]Performed By: #### 33439-7 ####[facility] CAMPUST [facility] LABIA [id number] [place] [id number] [facility] Platelet mean volume (Bld) [Entitic vol]9.8 fLNormal9.0-12.7CCoshocton [facility] on above:Order Comment: Specimen Type: BLOOD SPECIMENOrdering Facility: [facility] Address:[address] [place], [place] [address]Performed By: #### 73770-7 ####[facility] LABCLIA [id number] [place] [address] [facility] MEDICAL CENTERPlatelets (Bld) [#/Vol]341 10*3/uL Bwzmnc492-787MimnxvqxcKettering Memorial Hospital on above:Order Comment: Specimen Type: BLOOD SPECIMENOrdering Facility: [facility] Address:[address] [place], [place] [address]Performed By: #### 58134-8 ####[facility]AMPUSAnahi [facility] LABIA [id number] [place] [address] [facility] MEDICAL CENTERRB (Bld) [#/Vol]4.44 10*6/uLNormal3.90-5.20[facility] on above:Order Comment: Specimen Type: BLOOD SPECIMENOrdering Facility: [facility] Address:[address] [place], [place] [address]Performed By: #### 79526-5 ####[facility] CAMPUST [facility] LABIA [id number] [place] [id number] [facility] CENTERWBC (Bld) [#/Vol]12.66 10*3/uLHigh3.70-11.00[facility] on above:Order Comment: Specimen Type: BLOOD SPECIMENOrdering Facility: [facility] Address:[address] [place], [place] [address]Performed By: #### 99979-8 ####[facility]ENTERT [facility] LABIA [id number] [place] [id number] [facility] CENTERCR SerPl-mCncon [id number] [Mass/Vol]0.1 mg/dLNormal<0.9CCos[facility] on above:Order Comment: Specimen Type: BLOOD SPECIMENOrdering Facility: [facility] Address:[address] [place], [place] [address] [id number] By: #### 37704-8, 1987-09 ####[facility] LABCLIA [id number] [place] [address] [place] OF AMERICAComprehensive metabolic 2000 panelon 01-02-0450Wsdbdzn [Mass/Vol]4.0 g/dLNormal3.9-4.9CCoshocton [facility] on above:Order Comment: Specimen Type: BLOOD SPECIMENOrdering Facility: [facility] Address:[address] [place], [place] [address]Performed By: #### 71754-6, 1987-09 ####[facility] LABIA [id number] [place] [address] [place] AMERICAALP [Catalytic activity/Vol]52 U/UEvbhof79-422PuoirozrjKettering Memorial Hospital on above:Order Comment: Specimen Type: BLOOD SPECIMENOrdering Facility: [facility] Address:[address] [place], [place] [address]Performed By: #### 04496- 8, 1987-09 ####[facility] LABIA [id number] [place] [address] [place] AMERICAALT [Catalytic activity/Vol]26 U/LNormal7-38[facility] on above:Order Comment: Specimen Type: BLOOD SPECIMENOrdering Facility: [facility] Address:[address] [place], [place] [address]Performed By: #### 74491-6, 1987-09 ####[facility] LABIA [id number] [place] [address] [place] AMERICAAnion gap [Moles/Vol]10 mmol/LNormal8-15[facility] on above:Order Comment: Specimen Type: BLOOD SPECIMENOrdering Facility: [facility] Address:[address] [place], [place] [address]Saúl [place], [place] [address]Performed By: #### 78188- 8, 1987-09 ####[facility] LABIA [id number] [place] [address] [place] AMERICAAST [Catalytic activity/Vol]12 U/TLeq86-38TbpeqylmuKettering Memorial Hospital on above:Order Comment: Specimen Type: BLOOD SPECIMENOrdering Facility: [facility] Address:[address] [place], [place] [address]Performed By: #### 17416-3, 1987-09 ####[facility] LABCLIA [id number] [place] [address] [place] AMERICABilirubin [Mass/Vol]0.3 mg/dLNormal0.2-1.3CCoshocton Regional Medical Center on above:Order Comment: Specimen Type: BLOOD SPECIMENOrdering Facility: [facility] Address:[address] [place], [place] [address]Performed By: #### 69681- 8, 1987-09 ####[facility] LABIA [id number] [place] [id number] [place] AMERICACalcium [Mass/Vol]9.5 mg/dLNormal8.5-10.2CCoshocton Regional Medical Center on above:Order Comment: Specimen Type: BLOOD SPECIMENOrdering Facility: [facility] Address:[address] [place], [place] [address]Performed By: #### 12829-5, 1987-09 ####[facility] LABCLIA [id number] [place] [address] [place] AMERICAChloride [Moles/Vol]103 mmol/FLsuuyz44-479ChauousbcKettering Memorial Hospital on above: Order Comment: Specimen Type: BLOOD SPECIMENOrdering Facility: [facility] Address:[address] [place], [place] [address]Performed By: #### 45074- 8, 1987-09 ####[facility] LABIA [id number] [place] [address] [place] AMERICACO2 [Moles/Vol]27 mmol/PXwbaph46-27ChhcsqgnsKettering Memorial Hospital on above:Order Comment: Specimen Type: BLOOD SPECIMENOrdering Facility: [facility] Address:[address] [place], [place] [address]Performed By: #### 39131-3, 1987-09 ####[facility] LABIA [id number] [place] [address] [place] AMERICACreatinine [Mass/Vol]0.78 mg/dLNormal0.58-0.96Tuscarawas HospitalComment on above:Order Comment: Specimen Type: BLOOD SPECIMENOrdering Facility: [facility] Address:[address] [place], [place] [address]Performed By: #### 73498-5, 1987-09 ####[facility] LABIA [id number] [place] [address] [place] AMERICACreatinine and Glomerular filtration rate.predicted panel (S/P/Bld)97 mL/min/1.73m???Normal>=60[facility] on above: Order Comment: Specimen Type: BLOOD SPECIMENOrdering Facility: [facility] Address:[address] [place], [place] [address]Result Comment: Estimated Glomerular Filtration Rate (eGFR) is [...] not accurately reflect actual GFR.Performed By: #### 70183-3, 1987-09 ####[facility] LABIA [id number] [place] [address] [place] AMERICAGlucose [Mass/Vol]116 mg/eQFkab37-34SrmjrawgiTuscarawas Hospital Comment on above:Order Comment: Specimen Type: BLOOD SPECIMENOrdering Facility: [facility] Address:[address] [place], [place] [address]Result Comment: The [place] Diabetes Association (ADA) provides guidance for cutoff [...] Standards of Medical Care in Diabetes 2016, [place] [employer]. Diabetes Care. 2016.39(Suppl 1).Performed By: #### 54309-1, 1987-09 ####[facility] LABCLIA [id number] [place] [address] [place] AMERICAPotassium [Moles/Vol]3.8 mmol/LNormal3.7-5.1CCoshocton Regional Medical Center on above: Order Comment: Specimen Type: BLOOD SPECIMENOrdering Facility: [facility] Address:[address] [place], [place] [address]Performed By: #### 27831 8, 1987-09 ####[facility] LABIA [id number] [place] [id number] [place] AMERICAProtein [Mass/Vol]7.6 g/dLNormal6.3-8.0[facility] on above:Order Comment: Specimen Type: BLOOD SPECIMENOrdering Facility: [facility] Address:[address] [place], [place] [address]Performed By: #### 57072-9, 1987-09 ####[facility] LABIA [id number] [place] [address] [place] AMERICASodium [Moles/Vol]140 mmol/FQxyafa080-092JjpzkfjykKettering Memorial Hospital on above:Order Comment: Specimen Type: BLOOD SPECIMENOrdering Facility: [facility] Address:[address] [place], [place] [address]Performed By: #### 36558-8, 1987-09 ####[facility] LABCLIA [id number] [place] [address] [place] AMERICAUrea nitrogen [Mass/Vol]18 mg/dLNormal7-21[facility] on above:Order Comment: Specimen Type: BLOOD SPECIMENOrdering Facility: [facility] Address:[address] [place], [place] [address]Performed By: #### 19947-5, 1987-09 ####[facility] LABCLIA [id number] [place] [address] [place] AMERICAESR Westergren method (Bld) [Velocity]on 39-24-2616GEU (Bld) [Velocity]28 mm/hHigh0-20[facility] on above:Order Comment: Specimen Type: BLOOD SPECIMENOrdering Facility: [facility] Address:[address] [place], [place] [address]Performed By: #### 4537-7 ####[facility] LABCLIA [id number] [address] STATES [place] CNPNon 36-12-7362RXIGHqvtmoHrutmgqdi Clinic ClevelandMM TOMOSYNTHESIS DIAGNOSTIC LTon 93-93-5382[place] [address] Mammography Report Signed Patient: ARIADNA HALEY MR#: [id number] : 1980 Acct:[id number] Age/Sex: 43 / F ADM Date: 06/14/24 Loc: MAMMO Attending Dr: Oly Plascencia Ordering Physician: Oly Plascencia Results: Date of Service: 06/14/24 Follow Up: Procedure(s): MM tomosynthesis diagnostic LT Accession Number(s): [id number] cc: Oly Plascencia; GAY DE LA TORRE Patient Name: ARIADNA HALEY MR#: [id number] : 1980 Exam Date: 06/14/2024 Ordering Doctor: [...] stomach cancer at age 56. LOCATION: [facility] BREAST COMPOSITION: There are scattered [...] Signed By: 06/14/24 1615 DD/ 1614 TD/TT: Lead Assistant Manager:TBHRadiology, Radiologist, - 06/14/2024 [place] [address] Mammography Report Signed Patient: ARIADNA HALEY MR#: [id number] : 1980 Acct:[id number] Age/Sex: 43 / F ADM Date: 06/14/24 Loc: MAMMO Attending Dr: Oly Plascencia Ordering Physician: Oly Plascencia Results: Date of Service: 06/14/24 Follow Up: Procedure(s): MM tomosynthesis diagnostic LT Accession Number(s): [id number] cc: Oly Plascencia; GAY DE LA TORRE Patient Name: ARIADNA HALEY MR#: [id number] : 1980 Exam Date: 06/14/2024 Ordering Doctor: [...] stomach cancer at age 56. LOCATION: [facility] BREAST COMPOSITION: There are scattered [...] M.D. Signed By: 06/14/241614 DD/ 13 TD/TT: Lead Assistant Manager: MABLE HealthcareRadiology Study observation (narrative)[facility]ARusk [facility] TOMOSYNTHESIS DIAGNOSTIC LTOrdered By: Radiologist Radiology on 67-16-8423[facility] Work Phone: us BREAST LT LIMITEDon [phone] [address] Ultrasound Report Signed Patient: ARIADNA HALEY MR#: [id number] : 1980 Acct:[id number] Age/Sex: 43 / F ADM Date: 06/14/24 Loc: MAMMO Attending Dr: Oly Plascencia Ordering Physician: Oly Plascencia Date of Service: 06/14/24 Procedure(s): US breast LT limited Accession Number(s): [id number] cc: Oly Plascencia; GAY DE LA TORRE Patient Name: ARIADNA HALEY MR#: [id number] : 1980 Exam Date: 06/14/2024 Ordering Doctor: [...] Signed By: 06/14/24 1505 DD/ 1504 TD/TT: Lead Assistant Manager:TBHRadiology, Radiologist, - 06/14/[address] [address] Ultrasound Report Signed Patient: ARIADNA HALEY MR#: [id number] : 1980 Acct:[id number] Age/Sex: 43 / F ADM Date: 06/14/24 Loc: MAMMO Attending Dr: Oly Plascencia Ordering Physician: Oly Plascencia Date of Service: 06/14/24 Procedure(s): US breast LT limited Accession Number(s): [id number] cc: Oly Plascencia; GAY DE LA TORRE Patient Name: ARIADNA HALEY MR#: [id number] : 1980 Exam Date: 06/14/2024 Ordering Doctor: [...] Signed By: 06/14/24 1505 DD/ 1504 TD/TT: Lead Assistant Manager: MABLE HealthcareRadiology Study observation (narrative)NOMS HealthcareUS BREAST LT LIMITEDOrdered By: Radiologist Radiology on 86-84-7358MWJR Evoz Work Phone: aLLIED [email or web address] [phone] [facility] W Auto Differential panel (Bld)on 48-37-3580Ierenrrjf (Bld) [#/Vol]0.10 10*3/uLNINFScci Hospital LimaBasophils/100 WBC (Bld)0.7 %Scci Hospital LimaDifferential cell count method Nom (Bld)AutoCleveland ClinicEosinophils (Bld) [#/Vol]0.15 10*3/uLNINFScci Hospital LimaEosinophils/100 WBC (Bld)1.1 % [facility]cci Hospital LimaErythrocyte distribution width (RBC) [Ratio]14.2 %11.5 - 15.0 % [facility] Hospital LimaHematocrit (Bld) [Volume fraction]39.0 %36.0 - 46.0 %Scci Hospital LimaHemoglobin (Bld) [Mass/Vol]13.0 g/dL11.5 - 15.5 g/dLScci Hospital Lima Immature granulocytes (Bld) [#/Vol]0.21 10*3/uLHighNINFScci Hospital LimaImmature granulocytes/100 WBC (Bld)1.5 %[facility] LimaInterpretation and review of laboratory resultsAbnormalCleveland St. Luke'S HospitalLymphocytes (Bld) [#/Vol]2.16 10*3/uL [facility] Hospital LimaLymphocytes/100 WBC (Bld)15.4 %[facility] HospitalH (RBC) [Entitic mass]30.5 pg26.0 - 34.0 pgClevelRiver's Edge HospitalHC (RBC) [Mass/Vol]33.3 g/dL30.5 - 36.0 g/dLHarrison Community HospitalV (RBC) [Entitic vol]91.5 fL80.0 - 100.0 fLClevelCleveland Clinic Medina HospitalMonocytes (Bld) [#/Vol]0.79 10*3/uLNINFScci Hospital Lima Monocytes/100 WBC (Bld)5.6 %[facility] Hospital LimaNeutrophils (Bld) [#/Vol]10.59 10*3/uLHighScci Hospital LimaNeutrophils/100 WBC (Bld)75.7 %[facility] Nucleated RBC (Bld) [#/Vol]NINFCleveland ClinicNucleated RBC/100 WBC (Bld) [Ratio]0.0 %/100 WBCScci Hospital LimaPlatelet mean volume (Bld) [Entitic vol]9.9 fL9.0 - 12.7 fLClevelformerly [facility] ClinicPlatelets (Bld) [#/Vol]327 10*3/uLClesouthwest general health center ClinicRBC (Bld) [#/Vol]4.26 10*6/uL3.90 - 5.20 m/Pomerene HospitalWBC (Bld) [#/Vol]14.00 10*3/uLHighMiami Valley HospitalBasophils (Bld) [#/Vol] 0.10 10*3/uLNormal<0.11CCoshocton Regional Medical Center on above:Order Comment: Specimen Type: BLOOD SPECIMENOrdering Facility: [facility] Address:[address] [place], [place] [address]Performed By: #### 52921-9 ####[facility] LABCLIA [id number] [place], [place] [address]Qhojzgyvo/100 WBC (Bld)0.7 %[facility] on above:Order Comment: Specimen Type: BLOOD SPECIMENOrdering Facility: [facility] Address:[address] [place], [place] [address]Performed By: #### 04352-6 ####[facility] LABCLIA [id number] [place], [place] [address]Rzpzpukhnmji cell count method Nom (Bld)AutoNormalCCoshocton Regional Medical Center on above:Order Comment: Specimen Type: BLOOD SPECIMENOrdering Facility: [facility] Address:[address] [place], [place] [address]Performed By: #### 37813-4 ####[facility] LABCLIA [id number] [place], [place] [address]Jvhahtxhmwk (Bld) [#/Vol]0.15 10*3/uLNormal<0.46[facility] on above:Order Comment: Specimen Type: BLOOD SPECIMENOrdering Facility: [facility] Address:[address] [place], [place] [address]Performed By: #### 49562-5 ####[facility] LABCLIA [id number] [place], [place] [address]Phiqngffhvf/100 WBC (Bld)1.1 %NormalKettering Memorial Hospital on above:Order Comment: Specimen Type: BLOOD SPECIMENOrdering Facility: [facility] Address:[address] [place], [place] [address]Performed By: #### 00572-8 ####[facility] LABIA [id number] [place], [place] [address]Xbectswrosq distribution width (RBC) [Ratio]14.2 %Normal 11.5-15.0[facility] on above:Order Comment: Specimen Type: BLOOD SPECIMENOrdering Facility: [facility] Address:[address] [place], [place] [address]Performed By: #### 98963-1 ####[facility] CENTERDAPHNE [facility] LABIA [id number] [place] [address] Hematocrit (Bld) [Volume fraction]39.0 %Cmgwpk35.0-46.0[facility] on above:Order Comment: Specimen Type: BLOOD SPECIMENOrdering Facility: [facility] Address:[address] [place], [place] [address]Performed By: #### 43514-4 ####[facility] LABIA [id number] [place], [place] [address]Kcbfvrlvua (Bld) [Mass/Vol]13.0 g/hYIqkakn52.5-15.5CCoshocton Regional Medical Center on above:Order Comment: Specimen Type: BLOOD SPECIMENOrdering Facility: [facility] Address:[address] [place], [place] [address]Performed By: #### 23723-3 ####[facility] LABIA [id number] [place], [place] [address]Epmwftsy granulocytes (Bld) [#/Vol]0.21 10*3/uLHigh<0.10 [facility] on above:Order Comment: Specimen Type: BLOOD SPECIMENOrdering Facility: [facility] Address:[address] [place], [place] [address]Performed By: #### 51865-5 ####[facility] LABCLIA [id number] [place], [place] [address]Ujxusczq granulocytes/100 WBC (Bld)1.5 %NormalKettering Memorial Hospital on above: Order Comment: Specimen Type: BLOOD SPECIMENOrdering Facility: [facility] Address:[address] [place], [place] [address]Performed By: #### 23726- 8 ####[facility] LABCLIA [id number] [place], [place] [address]Nbhrqfisbtk (Bld) [#/Vol]2.16 10*3/uLNormal1.00-4.00 [facility] on above:Order Comment: Specimen Type: BLOOD SPECIMENOrdering Facility: [facility] Address:[address] [place], [place] [address]Performed By: #### 26433-3 ####[facility] LABIA [id number] [place], [place] [address]Geskqicnndx/100 WBC (Bld)15.4 %NormalKettering Memorial Hospital on above:Order Comment: Specimen Type: BLOOD SPECIMENOrdering Facility: [facility] Address:[address] [place], [place] [address]Performed By: #### 62395-9 ####[facility] LABCLIA [id number] [place], [place] [address]JKU (RBC) [Entitic mass]30.5 ivZcmmrp62.0-34.0[facility] on above:Order Comment: Specimen Type: BLOOD SPECIMENOrdering Facility: [facility] Address:[address] [place], [place] [address]Performed By: #### 63862-2 ####[facility] LABCLIA [id number] [place], [place] [address]MJGB (RBC) [Mass/Vol]33.3 g/lSNcjvzy35.5-36.0[facility] on above: Order Comment: Specimen Type: BLOOD SPECIMENOrdering Facility: [facility] Address:[address] [place], [place] [address]Performed By: #### 26868- 8 ####[facility] LABCLIA [id number] [place], [place] [address]FTQ (RBC) [Entitic vol]91.5 yMKdprrb98.0-100.0[facility] on above:Order Comment: Specimen Type: BLOOD SPECIMENOrdering Facility: [facility] Address:[address] [place], [place] [address]Performed By: #### 60441-7 ####[facility] LABIA [id number] [place], [place] [address]Elxqxfcco (Bld) [#/Vol]0.79 10*3/uLNormal<0.87[facility] on above:Order Comment: Specimen Type: BLOOD SPECIMENOrdering Facility: [facility] Address:[address] [place], [place] [address]Performed By: #### 83996- 8 ####[facility] LABCLIA [id number] [place], [place] [address]Mgbatjdvn/100 WBC (Bld)5.6 %NormalKettering Memorial Hospital on above:Order Comment: Specimen Type: BLOOD SPECIMENOrdering Facility: [facility] Address:[address] [place], [place] [address]Performed By: #### 87512-7 ####[facility] LABIA [id number] [place], [place] [address]Qombxtzppvu (Bld) [#/Vol]10.59 10*3/uLHigh1.45-7.50[facility] on above:Order Comment: Specimen Type: BLOOD SPECIMENOrdering Facility: [facility] Address:[address] [place], [place] [address]Performed By: #### 83806-7 ####[facility] LABCLIA [id number] [place], [place] [address]Sublrhfvqdq/100 WBC (Bld)75.7 %NormalKettering Memorial Hospital on above:Order Comment: Specimen Type: BLOOD SPECIMENOrdering Facility: [facility] Address:[address] [place], [place] [address]Performed By: #### 00773-2 ####[facility] LABCLIA [id number] [place], [place] [address]Iikjmzozv RBC (Bld) [#/Vol] 10*3/uLNormal<0.01[facility] on above:Order Comment: Specimen Type: BLOOD SPECIMENOrdering Facility: [facility] Address:[address] [place], [place] [address]Performed By: #### 08693-8 ####[facility] LABCLIA [id number] [place], [place] [address]Czhyucnms RBC/100 WBC (Bld) [Ratio]0.0 /100 WBCNormal [facility] on above:Order Comment: Specimen Type: BLOOD SPECIMENOrdering Facility: [facility] Address:[address] [place], [place] [address]Performed By: #### 50594-0 ####[facility] LABCLIA [id number] [place], [place] [address] mean volume (Bld) [Entitic vol]9.9 fLNormal9.0-12.7CCoshocton Regional Medical Center on above:Order Comment: Specimen Type: BLOOD SPECIMENOrdering Facility: [facility] Address:[address] [place] [address] Performed By: #### 32041-9 ####[facility] LABIA [id number] [place], [place] [address]Ouldxinxq (Bld) [#/Vol]327 10*3/dMZonxqo005-149SjkggihgiKettering Memorial Hospital on above:Order Comment: Specimen Type: BLOOD SPECIMENOrdering Facility: [facility] Address:[address] [place] [address]Svzbjbrrz By: #### 20903-6 ####[facility]APH[facility] LABCLIA [id number] [place], [place] [address]BEL (Bld) [#/Vol]4.26 10*6/uLNormal3.90-5.20[facility] on above:Order Comment: Specimen Type: BLOOD SPECIMENOrdering Facility: [facility] Address:[address] [place] [address]Fhqrjmhmm By: #### 13138-2 ####[facility] LABCLIA [id number] [place], [place] [address]YFZ (Bld) [#/Vol]14.00 10*3/uLHigh3.70-11.00[facility] on above: Order Comment: Specimen Type: BLOOD SPECIMENOrdering Facility: [facility] Address:[address] [place] [address]Pzprlwsmu By: #### 12957- 8 ####[facility] LABCLIA [id number] [place], [place] [address]JKGNWHox 57-46-0604ZFVWPJQwdxvlCwhjckvma [facility] metabolic 2000 panelOrdered By: Josse Merlos on 79-65-7517Tbvqwjq [Mass/Vol]3.9 g/dL3.9 - 4.9 g/dLLewisville ClinicALP [Catalytic activity/Vol]73 U/L34 - 123 U/LCleveland ClinicALT [Catalytic activity/Vol]24 U/L7 - 38 U/L [facility] ClinicAnion gap [Moles/Vol]15 mmol/L8 - 15 mmol/LCleveland ClinicAST [Catalytic activity/Vol]12 U/LLow13 - 35 U/LCleveland ClinicBilirubin [Mass/Vol] mg/dLLow0.2 - 1.3 mg/dLClesouthwest general health center ClinicCalcium [Mass/Vol]9.2 mg/dL8.5 - 10.2 mg/dLCleveland ClinicChloride [Moles/Vol]104 mmol/L98 - 107 mmol/LCleveland ClinicCO2 [Moles/Vol]19 mmol/LLow22 - 30 mmol/LCleveland ClinicCreatinine [Mass/Vol]0.58 mg/dL0.58 - 0.96 mg/dLScci Hospital LimaGFR/1.73 sq M.predicted among non-blacks MDRD (S/P/Bld) [Vol rate/Area]115 mL/min/{1.73_m2}- PINF Scci Hospital LimaComment on above:Estimated Glomerular Filtration Rate (eGFR) is calculated using the 2020 CKD-EPI creatinine equation. This equation utilizes serum creatinine, sex, and age as parameters. The creatinine assay has traceable calibration to isotope dilution-mass spectrometry. Refer to KDIGO guidelines for clinical interpretation. In patients with unstable renal function, e.g. those with acute kidney injury, the eGFRmay not accurately reflect actual GFR.Glucose [Mass/Vol]163 mg/mSXwqt81 - 99 mg/dLScci Hospital LimaComment on above:The [place] Diabetes Association (ADA) provides guidance for cutoff [...] Standards of Medical Care in Diabetes 2016, [place] [employer]. Diabetes Care. 2016.39(Suppl 1). Interpretation and review of laboratory resultsAbnormalCleveland ClinicPotassium [Moles/Vol]3.9 mmol/L3.7 - 5.1 mmol/LCleveland ClinicProtein [Mass/Vol]6.8 g/dL 6.3 - 8.0 g/dLLewisville ClinicSodium [Moles/Vol]138 mmol/L136 - 144 mmol/L Scci Hospital LimaUrea nitrogen [Mass/Vol]13 mg/dL7 - 21 mg/dLAvita Health System Ontario HospitalComprehensive metabolic 2000 panelon 57-14-5830Qvqccel [Mass/Vol]3.9 g/dLNormal3.9-4.9CCoshocton Regional Medical Center on above:Order Comment: Specimen Type: BLOOD SPECIMENOrdering Facility: [facility] Address:[address] [place], [place] [address]Performed By: #### 40165- 8 ####[facility] LABCLIA [id number] [facility] [place], [place] [address]WOM [Catalytic activity/Vol]73 U/AOwfpji72-694KmrnnygehKettering Memorial Hospital on above:Order Comment: Specimen Type: BLOOD SPECIMENOrdering Facility: [facility] Address:[address] [place], [place] [address]Performed By: #### 25604-7 ####[facility] LABCLIA [id number] [place], [place] [address]FKR [Catalytic activity/Vol]24 U/LNormal7-38[facility] on above:Order Comment: Specimen Type: BLOOD SPECIMENOrdering Facility: [facility] Address:[address] [place], [place] [address]Performed By: #### 42456- 8 ####[facility] LABCLIA [id number] [facility] [place], [place] [address]Whkns gap [Moles/Vol]15 mmol/LNormal8-15[facility] on above:Order Comment: Specimen Type: BLOOD SPECIMENOrdering Facility: [facility] Address:[address] [place], [place] [address]Performed By: #### 47909-8 ####[facility] LABCLIA [id number] [place], [place] [address]JMA [Catalytic activity/Vol]12 U/DTfy88-96WhhtrerszKettering [facility] Hospital on above:Order Comment: Specimen Type: BLOOD SPECIMENOrdering Facility: [facility] Address:[address] [place], [place] [address]Performed By: #### 21429-0 ####[facility] LABCLIA [id number] [place] [address] Bilirubin [Mass/Vol]mg/dLLow0.2-1.3CCos[facility] on above: Order Comment: Specimen Type: BLOOD SPECIMENOrdering Facility: [facility] Address:[address] [place], [place] [address]Performed By: #### [id number]- 8 ####[facility] LABCLIA [id number] [place], [place] [address]Ctqqntu [Mass/Vol]9.2 mg/dLNormal8.5-10.2CCoshocton [facility] on above:Order Comment: Specimen Type: BLOOD SPECIMENOrdering Facility: [facility] Address:[address] [place], [place] [address]Performed By: #### 24326-0 ####[facility] LABCLIA [id number] [place], [place] [address]Zuyzxjjn [Moles/Vol]104 mmol/L Nrdjkf75-096TjarzgqfuKettering [facility] Hospital on above:Order Comment: Specimen Type: BLOOD SPECIMENOrdering Facility: [facility] Address:[address] [place], [place] [address]Performed By: #### 28174-6 ####[facility] LABCLIA [id number] [place] [address] CO2 [Moles/Vol]19 mmol/CRsb34-33BfgfmsrhxKettering Memorial Hospital on above:Order Comment: Specimen Type: BLOOD SPECIMENOrdering Facility: [facility] Address:[address] [place], [place] [address]Performed By: #### 32356- 8 ####[facility] LABIA [id number] [place], [place] [address]Grbnrtpsnm [Mass/Vol]0.58 mg/dLNormal0.58-0.96[facility] on above:Order Comment: Specimen Type: BLOOD SPECIMENOrdering Facility: [facility] Address:[address] [place] [address]Rmrriujox By: #### 84002-4 ####[facility] LABCLIA [id number] [place], [place] [address]Fmdapgntoo and Glomerular filtration rate.predicted panel (S/P/Bld)115 mL/min/1.73m???Normal >=60[facility] on above:Order Comment: Specimen Type: BLOOD SPECIMENOrdering Facility: [facility] Address:[address] [place], [place] [id number] Comment: Estimated Glomerular Filtration Rate (eGFR) is calculated using the 2020 CKD-EPI creatinine equation. This equation utilizes serum creatinine, sex, and age as parameters. The creatinine assay has traceable calibration to isotope dilution-mass spectrometry. Refer to KDIGO guidelines for clinical interpretation. In patients with unstable renal function, e.g. those with acute kidney injury, the eGFR may not accurately reflect actual GFR.Performed By: #### 92105-0 ####[facility] LABCLIA [id number] [place], [place] [address]Yyiqmew [Mass/Vol]163 mg/gPKszr54-99YluzybduxKettering Memorial Hospital on above:Order Comment: Specimen Type: BLOOD SPECIMENOrdering Facility: [facility] Address:[address] [place] [address]Auxifa Comment: The [place] Diabetes Association (ADA) provides guidance for cutoff [...] Standards of Medical Care in Diabetes 2016, [place] [employer]. Diabetes Care. 2016.39(Suppl 1).Performed By: #### 67202-5 ####[facility] LABCLIA [id number] [place], [place] [address]Tlqgjvums [Moles/Vol]3.9 mmol/LNormal3.7-5.1CCoshocton Regional Medical Center on above: Order Comment: Specimen Type: BLOOD SPECIMENOrdering Facility: [facility] Address:[address] [place], [place] [address]Performed By: #### 44390- 8 ####[facility] LABIA [id number] [place], [place] [address]Vzuzxmg [Mass/Vol]6.8 g/dLNormal6.3-8.0[facility] on above:Order Comment: Specimen Type: BLOOD SPECIMENOrdering Facility: [facility] Address:[address] [place], [place] [address]Performed By: #### 66509-2 ####[facility] LABIA [id number] [place], [place] [address]Bhkbkb [Moles/Vol]138 mmol/L Kbazmk850-213KpxasqrssKettering Memorial Hospital on above:Order Comment: Specimen Type: BLOOD SPECIMENOrdering Facility: [facility] Address:[address] [place], [place] [address]Performed By: #### 68569-8 ####[facility] LABIA [id number] [place] [address] Urea nitrogen [Mass/Vol]13 mg/dLNormal7-21[facility] on above:Order Comment: Specimen Type: BLOOD SPECIMENOrdering Facility: [facility] Address:[address] [place], [place] [address]Performed By: #### 34145-6 ####[facility]ITAL[facility] [id number] [place], [place] [address]IUI Westergren method (Bld) [Velocity]on 06-13-2024 ESR (Bld) [Velocity]30 mm/hHighScci Hospital LimaInterpretation and review of laboratory resultsAbnormalCcommunity memorial hospital [facility] Hospit[facility] Geneva Medical CenterESR (Bld) [Velocity]30 mm/hHigh0-20[facility] on above:Order Comment: Specimen Type: BLOOD SPECIMENOrdering Facility: [facility] Address:[address] [place], [place] [address]Performed By: #### 4537-7 ####[facility] LABCLIA [id number] [place] [address] [place] AMERICAFERRITINon 74-37-4140Gtsrmnte [Mass/Vol]30.9 ng/mL14.7 - 205.1 ng/mLCleveland ClinicFOLATE, SERUMon 66-07-7787Esaonx [Mass/Vol]19.6 ng/mL4.7 - PINF ng/mLCleveland ClinicFerritin SerPl-mCncon 52-21-6881Ggpngsqa [Mass/Vol]30.9 ng/eOZptiul23.7-205.1ClevelThe Jewish Hospital on above: Order Comment: Specimen Type: BLOOD SPECIMENOrdering Facility: [facility] Address:[address] [place], [place] [address]Performed By: #### 2284- 8, 2276-4, 89017-2, 2132-01 ####[facility] LABCLIA [id number] [place] [address] [place] AMERICAFerritin [Mass/Vol]on 58-70-5342Hnssbwwkexifpb and review of laboratory resultsNormal Miami Valley HospitalFolate SerPl-mCncon 25-85-4427Urzyae [Mass/Vol] 19.6 ng/mLNormal>4.7ClevelThe Jewish Hospital on above:Order Comment: Specimen Type: BLOOD SPECIMENOrdering Facility: [facility] Address:[address] [place], [place] [address]Performed By: #### 2284-8, 2276-4, 81428-3, 2132-01 ####[facility] LABCLIA [id number] [place] [address] [place] IMMUNOGLOBULINS,IGG,IGA,IGMon 22-77-7592JfE [Mass/Vol]170 mg/bDOyaefl78-371 [facility] on above:Order Comment: Specimen Type: BLOOD SPECIMENOrdering Facility: [facility] Address:[address] [place], [place] [address]Performed By: #### SERIMM ####[facility] LABCLIA [id number] [address] [address] [place] AMERICAIgG [Mass/Vol]663 mg/nFDnq580-9921KlwbgzfbgKettering Memorial Hospital on above:Order Comment: Specimen Type: BLOOD SPECIMENOrdering Facility: [facility] Address:[address] [place], [place] [address]Performed By: #### SERIMM ####[facility] LABCLIA [id number] [address] [address] [place] AMERICAIgM [Mass/Vol]376 mg/dL Bufu45-614SfakpdswhKettering Memorial Hospital on above:Order Comment: Specimen Type: BLOOD SPECIMENOrdering Facility: [facility] Address:[address] [place], [place] [address]Performed By: #### SERIMM ####[facility] LABCLIA [id number] [address] [address] [place] OF AMERICAIron and Iron binding capacity panelon 07-72-7485Zezi [Mass/Vol]64 ug/xKCpxuts43-814KoxoumnnzKettering Memorial Hospital on above:Order Comment: Specimen Type: BLOOD SPECIMENOrdering Facility: [facility] Address:[address] [place], [place] [address]Performed By: #### 2284- 8, 2276-4, 51882-6, 2132-9 ####[facility] LABCLIA [id number] [facility] [place] [address] [place] AMERICAIron binding capacity [Mass/Vol]409 ug/hIZykk940-001OnmxohcayKettering Memorial Hospital on above:Order Comment: Specimen Type: BLOOD SPECIMENOrdering Facility: [facility] Address:[address] [place], [place] [address] Performed By: #### 2284-8, 2276-4, 42195-7, 2132-01 ####[facility] LABCLIA [id number] [place] [address] [place] AMERICAIron/TIBC [Molar ratio]15.6 %Ytfiyr94.0-57.0[facility] on above:Order Comment: Specimen Type: BLOOD SPECIMENOrdering Facility: [facility] Address:[address] [place], [place] [address]Performed By: #### 2284-8, 6-4, 30889-5, 2132-01 ####[facility] LABCLIA [id number] [place] [address] [place] AMERICALaboratory - Chemistry and Chemistry - challengeon 74-71-7183KuL [Mass/Vol]170 mg/dL70 - 400 mg/dLScci Hospital LimaIgG [Mass/Vol]663 mg/qWJai088 - 1600 mg/dLLewisville ClinicIgM [Mass/Vol]376 mg/jVOkkb26 - 230 mg/dLScci Hospital LimaNo Panel Informationon 96-25-5672Yuzmrgwljmyglz and review of laboratory resultsNormalCleveland [facility] Hospit[facility] Geneva Medical CenterInterpretation and review of laboratory resultsAbnormalCleveland [facility] Hospitals Geneva Medical CenterVITAMIN B12 on 39-16-0121Jzgzihaxx (Vitamin B12) [Mass/Vol]516 pg/mL232 - 1245 pg/mL Scci Hospital LimaVit B12 SerPl-ncon 44-36-4264Lzzndvsck (Vitamin B12) [Mass/Vol]516 pg/lHXlnmob025-8864HscfaqshwCoshocton Regional Medical Center on above: Order Comment: Specimen Type: BLOOD SPECIMENOrdering Facility: [facility] Address:[address] [place], [place] [address]Performed By: #### 2284- 8, 2276-4, 74616-0, 2132-01 ####[facility] LABCLIA [id number] [place] [id number] [place] OF AMERICACNPNon 99-43-4430IPLZQcyakdKdpndlhif Clinic ClevelandIGP,APTIMA HPV,AGE GDLNon 33-80-0288JRI GDLN ACOG TESTINGNote.NOMS HealthcareComment on above:TESTS RESULT FLAG UNITS REF RANGE LAB Clinician Provided Cytology Information Source.............Cervix;Endocervix No. of containers..01 ThinPrep Vial Age Algo ACOG Vicky... FLAG LEGEND: L-Low Normal,H-High Normal,LL-Alert Low,HH-Alert High <-Panic Low,>-Panic High,A-Abnormal,AA-Critical Abnormal Performed at: 01 =[address] [address] Aparna Solrozano MD, HPV APTIMANegativeNegativeNOMS HealthcareComment on above:This nucleic acid amplification test detects fourteen high- risk HPV types (16,18,31,33,35,39,45,51,52,56,58,59,66,68) without differentiation. Performed at: =[address] [id number] Assistant Analyst: Aparna Solorzano MD, Phone: [phone] Performed at: [address] [id number] Assistant Analyst: Aparna Solorzano MD, Phone: [phone] IGP, APTIMA HPV, RFX 16/18,45Note.NOMS HealthcareComment on above:TESTS RESULT FLAG UNITS REF RANGE LAB DIAGNOSIS: 02 NEGATIVE FOR INTRAEPITHELIAL LESION OR MALIGNANCY. Specimen adequacy: 02 Satisfactory for evaluation. Endocervical and/or squamous metaplastic cells (endocervical component) are present. Performed by: 02 Kenzie Kam, Medicinal Plant Picker ([facility]) . 02 Note: Note 02 The [...] High,A-Abnormal,AA-Critical Abnormal Performed at: 02 [facility] [address] [place] [address] Aparna Solorzano MD, BRUSH-SPATULA CERVIX ENDOCERVIX CLINISYNCNOMS [facility] Auto Differential panel (Bld)on 05-19-2024 Basophils (Bld) [#/Vol]0.08 10*3/uLNINFScci Hospital LimaBasophils/100 WBC (Bld) 0.6 %Scci Hospital LimaDifferential cell count method Nom (Bld)AutoCleveland ClinicEosinophils (Bld) [#/Vol]0.17 10*3/uLNINFScci Hospital LimaEosinophils/100 WBC (Bld)1.2 %Scci Hospital LimaErythrocyte distribution width (RBC) [Ratio]14.3 % 11.5 - 15.0 %Scci Hospital LimaHematocrit (Bld) [Volume fraction]39.8 %36.0 - 46.0 %Scci Hospital LimaHemoglobin (Bld) [Mass/Vol]13.4 g/dL11.5 - 15.5 g/dLScci Hospital LimaImmature granulocytes (Bld) [#/Vol]0.13 10*3/uLHighNIPomerene Hospital Immature granulocytes/100 WBC (Bld)0.9 %[facility] LimaInterpretation and review of laboratory resultsAbnormalCleveland ClinicLymphocytes (Bld) [#/Vol] 2.96 10*3/uLScci Hospital LimaLymphocytes/100 WBC (Bld)20.5 %[facility] HospitalH (RBC) [Entitic mass]31.1 pg26.0 - 34.0 pgClevelRiver's Edge HospitalHC (RBC) [Mass/Vol] 33.7 g/dL30.5 - 36.0 g/dLHarrison Community HospitalV (RBC) [Entitic vol]92.3 fL80.0 - 100.0 fLCleveland ClinicMonocytes (Bld) [#/Vol]0.87 10*3/uLHighNINFScci Hospital LimaMonocytes/100 WBC (Bld)6.0 %Scci Hospital LimaNeutrophils (Bld) [#/Vol]10.20 10*3/uLHighScci Hospital LimaNeutrophils/100 WBC (Bld)70.8 %[facility] Nucleated RBC (Bld) [#/Vol]NINFCleveland ClinicNucleated RBC/100 WBC (Bld) [Ratio]0.0 %/100 WBCCleveland ClinicPlatelet mean volume (Bld) [Entitic vol]10.1 fL9.0 - 12.7 fLCMercy Health Willard HospitalPlatelets (Bld) [#/Vol]303 10*3/uLLewisville ClinicRBC (Bld) [#/Vol]4.31 10*6/uL3.90 - 5.20 m/uLScci Hospital LimaWBC (Bld) [#/Vol]14.41 10*3/uLHighGerman Hospital ClinicBasophils (Bld) [#/Vol] 0.08 10*3/uLNormal<0.11CCoshocton Regional Medical Center on above:Order Comment: Specimen Type: BLOOD SPECIMENOrdering Facility: [facility] Address:[address] [place], [place] [address]Performed By: #### 85193-5 ####[facility] LABCLIA [id number] [place], [place] [address]Inpfdsxav/100 WBC (Bld)0.6 %NormalKettering Memorial Hospital on above:Order Comment: Specimen Type: BLOOD SPECIMENOrdering Facility: [facility] Address:[address] [place], [place] [address]Performed By: #### 71491-7 ####[facility] LABCLIA [id number] [place], [place] [address]Hhrszbqfbedb cell count method Nom (Bld)AutoNormalCCoshocton Regional Medical Center on above:Order Comment: Specimen Type: BLOOD SPECIMENOrdering Facility: [facility] Address:[address] [place], [place] [address]Performed By: #### 20208-7 ####[facility] LABCLIA [id number] [place], [place] [address]Rjdevpmikyb (Bld) [#/Vol]0.17 10*3/uLNormal<0.46[facility] on above:Order Comment: Specimen Type: BLOOD SPECIMENOrdering Facility: [facility] Address:[address] [place], [place] [address]Performed By: #### 40087-8 ####[facility] LABIA [id number] [place], [place] [address]Szncssqfwat/100 WBC (Bld)1.2 %NormalKettering Memorial Hospital on above:Order Comment: Specimen Type: BLOOD SPECIMENOrdering Facility: [facility] Address:[address] [place], [place] [address]Performed By: #### 67366-6 ####[facility] LABIA [id number] [place], [place] [address]Akmyzjssfjh distribution width (RBC) [Ratio]14.3 %Normal 11.5-15.0[facility] on above:Order Comment: Specimen Type: BLOOD SPECIMENOrdering Facility: [facility] Address:[address] [place], [place] [address]Performed By: #### 82697-1 ####[facility] LABIA [id number] [place] [address] Hematocrit (Bld) [Volume fraction]39.8 %Crqarw09.0-46.0[facility] on above:Order Comment: Specimen Type: BLOOD SPECIMENOrdering Facility: [facility] Address:[address] [place], [place] [address]Performed By: #### 00055-2 ####[facility] LABIA [id number] [place], [place] [address]Vknztyciyx (Bld) [Mass/Vol]13.4 g/nCOnrjtr40.5-15.5CCoshocton Regional Medical Center on above:Order Comment: Specimen Type: BLOOD SPECIMENOrdering Facility: [facility] Address:[address] [place], [place] [address]Performed By: #### 57927-3 ####[facility] LABIA [id number] [place], [place] [address]Rcenxwor granulocytes (Bld) [#/Vol]0.13 10*3/uLHigh<0.10 [facility] on above:Order Comment: Specimen Type: BLOOD SPECIMENOrdering Facility: [facility] Address:[address] [place], [place] [address]Performed By: #### 64433-8 ####[facility] LABCLIA [id number] [place], [place] [address]Hbhyjmmb granulocytes/100 WBC (Bld)0.9 %[facility] on above: Order Comment: Specimen Type: BLOOD SPECIMENOrdering Facility: [facility] Address:[address] [place], [place] [address]Performed By: #### 97342- 8 ####[facility] LABCLIA [id number] [place], [place] [address]Jmmssxwsaid (Bld) [#/Vol]2.96 10*3/uLNormal1.00-4.00 [facility] on above:Order Comment: Specimen Type: BLOOD SPECIMENOrdering Facility: [facility] Address:[address] [place], [place] [address]Performed By: #### 09937-6 ####[facility] CENTERDAPHNE [facility] LABIA [id number] [place], [place] [address]Tmzcelddxtb/100 WBC (Bld)20.5 %NormalKettering Memorial Hospital on above:Order Comment: Specimen Type: BLOOD SPECIMENOrdering Facility: [facility] Address:[address] [place], [place] [address]Performed By: #### 94163-9 ####[facility] LABCLIA [id number] [place], [place] [address]CDT (RBC) [Entitic mass]31.1 cqRqaolc76.0-34.0[facility] on above:Order Comment: Specimen Type: BLOOD SPECIMENOrdering Facility: [facility] Address:[address] [place], [place] [address]Performed By: #### 87150-9 ####[facility] LABCLIA [id number] [place], [place] [address]XWYQ (RBC) [Mass/Vol]33.7 g/xFCfegbv49.5-36.0[facility] on above: Order Comment: Specimen Type: BLOOD SPECIMENOrdering Facility: [facility] Address:[address] [place], [place] [address]Performed By: #### 92373- 8 ####[facility] LABCLIA [id number] [place], [place] [address]BMZ (RBC) [Entitic vol]92.3 xNZzpywg46.0-100.0[facility] on above:Order Comment: Specimen Type: BLOOD SPECIMENOrdering Facility: [facility] Address:[address] [place], [place] [address]Performed By: #### 66127-8 ####[facility] LABIA [id number] [place], [place] [address]Jivimcczb (Bld) [#/Vol]0.87 10*3/uLHigh<0.87[facility] on above:Order Comment: Specimen Type: BLOOD SPECIMENOrdering Facility: [facility] Address:[address] [place], [place] [address]Performed By: #### 16417- 8 ####[facility] LABCLIA [id number] [place], [place] [address]Umfwhufha/100 WBC (Bld)6.0 %NormalKettering Memorial Hospital on above:Order Comment: Specimen Type: BLOOD SPECIMENOrdering Facility: [facility] Address:[address] [place], [place] [address]Performed By: #### 45339-9 ####[facility] LABIA [id number] [place], [place] [address]Zandwwmlzwj (Bld) [#/Vol]10.20 10*3/uLHigh1.45-7.50[facility] on above:Order Comment: Specimen Type: BLOOD SPECIMENOrdering Facility: [facility] Address:[address] [place], [place] [address]Performed By: #### 09477-3 ####[facility] LABCLIA [id number] [place], [place] [address]Ktwetxguruf/100 WBC (Bld)70.8 %NormalKettering Memorial Hospital on above:Order Comment: Specimen Type: BLOOD SPECIMENOrdering Facility: [facility] Address:[address] [place], [place] [address]Performed By: #### 34693-1 ####[facility] LABCLIA [id number] [place], [place] [address]Otmahrxhz RBC (Bld) [#/Vol] 10*3/uLNormal<0.01[facility] on above:Order Comment: Specimen Type: BLOOD SPECIMENOrdering Facility: [facility] Address:[address] [place], [place] [address]Performed By: #### 10305-9 ####[facility] LABCLIA [id number] [place], [place] [address]Pfgwpfjyn RBC/100 WBC (Bld) [Ratio]0.0 /100 WBCNormal [facility] on above:Order Comment: Specimen Type: BLOOD SPECIMENOrdering Facility: [facility] Address:[address] [place], [place] [address]Performed By: #### 29939-6 ####[facility] LABCLIA [id number] [place], [place] [address]Xkxqpyoo mean volume (Bld) [Entitic vol]10.1 fLNormal9.0-12.7CCoshocton Regional Medical Center on above:Order Comment: Specimen Type: BLOOD SPECIMENOrdering Facility: [facility] Address:[address] [place] [address] Performed By: #### 32368-5 ####[facility] LABCLIA [id number] [place], [place] [address]Ezxtlxjzp (Bld) [#/Vol]303 10*3/qCItirkc037-174WvvtxfhcrKettering Memorial Hospital on above:Order Comment: Specimen Type: BLOOD SPECIMENOrdering Facility: [facility] Address:[address] [place], [place] [address]Performed By: #### 42360-0 ####[facility] LABCLIA [id number] [place], [place] [address]XMM (Bld) [#/Vol]4.31 10*6/uLNormal3.90-5.20[facility] on above:Order Comment: Specimen Type: BLOOD SPECIMENOrdering Facility: [facility] Address:[address] [place], [place] [address]Performed By: #### 71713-2 ####[facility] LABIA [id number] [place], [place] [address]BTB (Bld) [#/Vol]14.41 10*3/uLHigh3.70-11.00[facility] on above: Order Comment: Specimen Type: BLOOD SPECIMENOrdering Facility: [facility] Address:[address] [place], [place] [address]Performed By: #### 13978- 8 ####[facility] LABIA [id number] [place], [place] [address]Wfafexhncprki metabolic 2000 panelon 72-61-4487Qqpxirx [Mass/Vol]4.0 g/dL3.9 - 4.9 g/dLPromedica Bay Park Hospitalveland ClinicALP [Catalytic activity/Vol]79 U/L34 - 123 U/LCleveland ClinicALT [Catalytic activity/Vol]25 U/L7 - 38 U/L [facility] ClinicAnion gap [Moles/Vol]14 mmol/L8 - 15 mmol/LCleveland ClinicAST [Catalytic activity/Vol]12 U/LLow13 - 35 U/LCleveland ClinicBilirubin [Mass/Vol] mg/dLLow0.2 - 1.3 mg/dLLewisville ClinicCalcium [Mass/Vol]9.4 mg/dL8.5 - 10.2 mg/dLClesouthwest general health center ClinicChloride [Moles/Vol]105 mmol/L98 - 107 mmol/LCleveland ClinicCO2 [Moles/Vol]21 mmol/LLow22 - 30 mmol/LCleveland ClinicCreatinine [Mass/Vol]0.49 mg/dLLow0.58 - 0.96 mg/dLLewisville ClinicGFR/1.73 sq M.predicted among non-blacks MDRD (S/P/Bld) [Vol rate/Area]120 mL/min/{1.73_m2}- PINF Scci Hospital LimaComment on above:Estimated Glomerular Filtration Rate (eGFR) is calculated using the 2020 CKD-EPI creatinine equation. This equation utilizes serum creatinine, sex, and age as parameters. The creatinine assay has traceable calibration to isotope dilution-mass spectrometry. Refer to KDIGO guidelines for clinical interpretation. In patients with unstable renal function, e.g. those with acute kidney injury, the eGFRmay not accurately reflect actual GFR.Glucose [Mass/Vol]155 mg/gZSgau74 - 99 mg/dLScci Hospital LimaComment on above:The [place] [employer] (ADA) provides guidance for cutoff [...] Standards of Medical Care in Diabetes 2016, [place] [employer]. Diabetes Care. 2016.39(Suppl 1). Interpretation and review of laboratory resultsAbnormalCleveland ClinicPotassium [Moles/Vol]3.8 mmol/L3.7 - 5.1 mmol/LCleveland ClinicProtein [Mass/Vol]6.6 g/dL 6.3 - 8.0 g/dLCleveland ClinicSodium [Moles/Vol]140 mmol/L136 - 144 mmol/L [facility] ClinicUrea nitrogen [Mass/Vol]12 mg/dL7 - 21 mg/dLTuscarawas Hospital ClinicAlbumin [Mass/Vol]4.0 g/dLNormal3.9-4.9CCoshocton Regional Medical Center on above:Order Comment: Specimen Type: BLOOD SPECIMENOrdering Facility: [facility] Address:[address] [place], [place] [address]Performed By: #### 10643-5 ####[facility] LABCLIA [id number] [place] [address] [place] ALP [Catalytic activity/Vol]79 U/GQfmhfs00-588KytnvodmdKettering Memorial Hospital on above:Order Comment: Specimen Type: BLOOD SPECIMENOrdering Facility: [facility] Address:[address] [place] [address] Performed By: #### 45504-4 ####[facility] LABCLIA [id number] [place] [address] [place] [Catalytic activity/Vol]25 U/LNormal7-38[facility] on above:Order Comment: Specimen Type: BLOOD SPECIMENOrdering Facility: [facility] Address:[address] [place], [place] [address]Performed By: #### 22997-3 ####[facility] LABCLIA [id number] [place] [address] [place] AMERICAAnion gap [Moles/Vol] 14 mmol/LNormal8-15[facility] on above:Order Comment: Specimen Type: BLOOD SPECIMENOrdering Facility: [facility] Address:[address] [place], [place] [address]Performed By: #### 93226-5 ####[facility] LABCLIA [id number] [place] [address] [place]AAST [Catalytic activity/Vol]12 U/VGru95-09EatxxoixlKettering Memorial Hospital on above:Order Comment: Specimen Type: BLOOD SPECIMENOrdering Facility: [facility] Address:[address] [place], [place] [address]Performed By: #### 80867-3 ####[facility] LABCLIA [id number] [place] [address] [place] AMERICABilirubin [Mass/Vol]mg/dLLow0.2-1.3CCoshocton Regional [facility] on above:Order Comment: Specimen Type: BLOOD SPECIMENOrdering Facility: [facility] Address:[address] [place], [place] [address]Performed By: #### 65634-6 ####[facility] [facility] [id number] [place] [address] [place] Calcium [Mass/Vol]9.4 mg/dLNormal8.5-10.2CCoshocton Regional [facility] on above:Order Comment: Specimen Type: BLOOD SPECIMENOrdering Facility: [facility] Address:[address] [place], [place] [address]Performed By: #### 33229-4 ####[facility] [id number] [place] [address] [place] AMERICAChloride [Moles/Vol] 105 mmol/BJlyjzm08-254YowrqbqqhKettering Memorial Hospital on above:Order Comment: Specimen Type: BLOOD SPECIMENOrdering Facility: [facility] Address:[address] [place], [place] [address]Performed By: #### 88496-6 ####[facility] [id number] [place] [address] [place] AMERICACO2 [Moles/Vol]21 mmol/RUqy82-10 [facility] on above:Order Comment: Specimen Type: BLOOD SPECIMENOrdering Facility: [facility] Address:[address] [place], [place] [address]Performed By: #### 62044-0 ####[facility] [id number] [place] [address] [place] AMERICACreatinine [Mass/Vol]0.49 mg/dLLow0.58-0.96[facility] Comment on above:Order Comment: Specimen Type: BLOOD SPECIMENOrdering Facility: [facility] Address:[address] [place] [address] Performed By: #### 47172-0 ####[facility] [id number] [place] [address] [place] Creatinine and Glomerular filtration rate.predicted panel (S/P/Bld)120 mL/min/1.73m???Normal>=60[facility]ittman Medical Centerment on above:Order Comment: Specimen Type: BLOOD SPECIMENOrdering Facility: [facility] Address:[address] [place], [place] [address]Result Comment: Estimated Glomerular Filtration Rate (eGFR) is [...] not accurately reflect actual GFR.Performed By: #### 99308-8 ####[facility] LABIA [id number] [place] [address] [place] AMERICAGlucose [Mass/Vol]155 mg/dLHigh 74-99Sum[facility] Rittman Medical Centerment on above:Order Comment: Specimen Type: BLOOD SPECIMENOrdering Facility: [facility] Address:[address] [place], [place] [address]Result Comment: The [place] [employer] (ADA) provides guidance for cutoff [...] Standards of Medical Care in Diabetes 2016, [place] [employer]. Diabetes Care. 2016.39(Suppl 1).Performed By: #### 15769-0 ####[facility] LABIA [id number] [place] [address] [place] AMERICAPotassium [Moles/Vol]3.8 mmol/L Normal3.7-5.1CCoshocton [facility] on above:Order Comment: Specimen Type: BLOOD SPECIMENOrdering Facility: [facility] Address:[address] [place], [place] [address]Performed By: #### 78749-9 ####[facility] LABIA [id number] [place] [address] [place] AMERICAProtein [Mass/Vol]6.6 g/dLNormal6.3-8.0[facility] on above:Order Comment: Specimen Type: BLOOD SPECIMENOrdering Facility: [facility] Address:[address] [place], [place] [address]Performed By: #### 26921-4 ####[facility] LABIA [id number] [place] [address] [place] Sodium [Moles/Vol]140 mmol/MTlzhkl250-362FiqmmihwcKettering Memorial Hospital on above:Order Comment: Specimen Type: BLOOD SPECIMENOrdering Facility: [facility] Address:[address] [place], [place] [address]Performed By: #### 99862-6 ####[facility] LABIA [id number] [place] [address] [place] AMERICAUrea nitrogen [Mass/Vol]12 mg/dLNormal7-21[facility] on above:Order Comment: Specimen Type: BLOOD SPECIMENOrdering Facility: [facility] Address:[address] [place], [place] [address]Performed By: #### 51661- 8 ####[facility] LABIA [id number] [place] [address] [place] AMERICAESR Westergren method (Bld) [Velocity]on 87-43-7602DQM (Bld) [Velocity]21 mm/[facility] Interpretation and review of laboratory resultsAbnormalCleveland University Hospitals Geneva Medical CenterESR (Bld) [Velocity]21 mm/hHigh0-20[facility] on above:Order Comment: Specimen Type: BLOOD SPECIMENOrdering Facility: [facility] Address:[address] [place], [place] [address]Performed By: #### 4537-7 ####[facility] [id number] [place] [address] [place] AMERICAFERRITIN BLDon 08-56-5344Pamhmniy [Mass/Vol]20.6 ng/mL14.7 - 205.1 ng/mLCleveland ClinicFOLATE SERUMon 71-83-7507Qsqfqp [Mass/Vol]11.1 ng/mL4.7 - PINF ng/mLCleveland Clinic Ferritin SerPl-mCncon 41-49-1008Lpkrbdoj [Mass/Vol]20.6 ng/bAZuiusj84.7-205.1 [facility] on above:Order Comment: Specimen Type: BLOOD SPECIMENOrdering Facility: [facility] Address:[address] [place], [place] [address]Performed By: #### 97734-7, 2284-8, 9, 2275-4 ####[facility] [id number] [place] [address] [place] AMERICAFolate SerPl-mCncon 05-19-2024 Folate [Mass/Vol]11.1 ng/mLNormal>4.7ClevelThe [facility] Hospital on above: Order Comment: Specimen Type: BLOOD SPECIMENOrdering Facility: [facility] Address:[address] [place], [place] [address]Performed By: #### 16348- 8, 2284-8, 9, 2275-4 ####[facility] LABCLIA [id number] [address] [place] OF AMERICAIron and Iron binding capacity panelon 58-29-6696Exmcelrhccqkoi and review of laboratory resultsAbnormalCleveland ClinicIron [Mass/Vol]47 ug/dL41 - 186 ug/dLScci Hospital LimaIron binding capacity [Mass/Vol]420 ug/pWPwck279 - 386 ug/dLScci Hospital LimaIron/TIBC [Molar ratio]11.2 %Low15.0 - 57.0 %[facility] Hospital ClinicIron [Mass/Vol]47 ug/lRTgqatp74-017GgpxjrqfpTuscarawas HospitalComment on above:Order Comment: Specimen Type: BLOOD SPECIMENOrdering Facility: [facility] Address:[address] [place], [place] [address]Performed By: #### 87622-8, 2283-8, 9, 4 ####[facility] LABIA [id number] [address] [place] Iron binding capacity [Mass/Vol]420 ug/zOYgik656-250DmafabghpTuscarawas Hospital Comment on above:Order Comment: Specimen Type: BLOOD SPECIMENOrdering Facility: [facility] Address:[address] [place] [address] Performed By: #### 03077-1, 2283-8, 9, 4 ####[facility] LABIA [id number] [place] [id number] [facility] HOSPITALIron/TIBC [Molar ratio]11.2 %Low15.0-57.0Tuscarawas HospitalCommymichigan medical center sault on above:Order Comment: Specimen Type: BLOOD SPECIMENOrdering Facility: [facility] Address:[address] [place], [place] [address]Performed By: #### 93627-2, 2283-8, 9, 2275-4 ####[facility] [id number] [place] [address] [place] AMERICANo Panel Informationon 52-08-9884Ukdhzvbslfjdgw and review of laboratory resultsNormalCSelect Medical Specialty Hospital - Cleveland-FairhillVITAMIN B12 BLOODon 73-29-5668Kpeopiwea (Vitamin B12) [Mass/Vol]632 pg/mL232 - 1245 pg/mL Scci Hospital LimaVit B12 SerPl-mCncon 42-19-7825Uqygnqatt (Vitamin B12) [Mass/Vol]632 pg/mYXaiqlo482-4141Gciwudeao Clinic ClevelandComment on above: Order Comment: Specimen Type: BLOOD SPECIMENOrdering Facility: [facility] Address:[address] [place], [place] [address]Performed By: #### 59165- 8, 2284-8, 2132-9, 2276-4 ####[facility] LABCLIA [id number] STATES OF AMERICACNNURSE on 36-36-9380KOQIRWGIqtabhKvhxoocgc Clinic ClevelandSEGMENTAL BLOOD PRESSUREon 16-88-2669[place]dq[place] [address] Vein Report Signed Patient: ARIADNA HALEY MR#: [id number] : 1980 Acct:[id number] Age/Sex: 43 / F ADM Date: 04/26/24 Loc: VC Attending Dr: Hayden Arciniega M.D. Ordering Physician: Hayden Arciniega M.D. Date of Service: 04/26/24 Procedure(s): VC SEGMENTAL PRESSURES Accession Number(s): [id number] cc: GAY DE LA TORRE ; Hayden Arciniega M.D. [address] [address] Patient Name: ARIADNA HALEY MRN: [id number] date: 1980 Sex: F Assigned Patient Location: VC Current Patient Location: Accession/Order Number: [id number] Exam Date: 04/26/2024 10:45 Report Date: 04/26/2024 12:29 At the request of: HAYDEN ARCINIEGA Procedure: VC SEGMENTAL PRESSURES EXAM: VC SEGMENTAL PRESSURES HISTORY: I73.9 COMPARISON: None. FINDINGS: Segmental pressures presented as follows (right, left) in mmHg. 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 Ordering Physician: Hayden Arciniega M.D. Date of Service: 04/26/24 Procedure(s): VC SEGMENTAL PRESSURES Accession Number(s): [id number] cc: GAY DE LA TORRE ; Hayden Arciniega M.D. The [place] [address] Patient Name: ARIADNA HALEY MRN: [id number] date: 1980 Sex: F Assigned Patient Location: Current Patient Location: VC Accession/Order Number: [id number] Exam Date: 04/26/2024 10:45 Report Date: 04/26/2024 12:29 At the request of: HAYDEN ARCINIEGA Procedure: VC SEGMENTAL PRESSURES EXAM: VC SEGMENTAL PRESSURES HISTORY: I73.9 COMPARISON: None. FINDINGS: Segmental pressures presented as follows (right, left) in mmHg. 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 Ordering Physician: Luan Valdivia D.O. Results: Date of Service: 04/06/24 Follow Up: Procedure(s): MM tomosynthesis diagnostic BI Accession Number(s): [id number] cc: GAY DE LA TORRE Corey D.O. Patient Name: ARIADNA HALEY MR#: [id number] : 1980 Exam Date: 04/06/2024 Ordering Doctor: [...] stomach cancer at age 56. LOCATION: [facility] BREAST COMPOSITION: There are scattered [...] Signed By: 04/07/24 0841 DD/ 0840 TD/TT: Lead Assistant Manager:TBHRadiology, Radiologist, MD - 04/07/2024 [place] [address] Mammography Report Signed Patient: ARIADNA HALEY MR#: [id number] : 1980 Acct:[id number] Age/Sex: 43 / F ADM Date: 04/06/24 Loc: US Attending Dr: Luan Valdivia D.O. Ordering Physician: Luan Valdivia D.O. Results: Date of Service: 04/06/24 Follow Up: Procedure(s): MM tomosynthesis diagnostic BI Accession Number(s): [id number] cc: GAY DE LA TORRE ; Luan Valdivia D.O. Patient Name: ARIADNA HALEY MR#: [id number] : 1980 Exam Date: 04/06/2024 Ordering Doctor: [...] stomach cancer at age 56. LOCATION: [facility] BREAST COMPOSITION: There are scattered [...] Ann M.D. Signed By: 04/07/2441 DD/ TD/TT: Lead Assistant Manager: MABLE GlezNo Panel InformationOrdered By: Radiologist Radiology on 99-90-8521JMMY Evoz Work Phone: No Panel Informationon 01-49-1401Ebndpyfzr Study observation (narrative)MABLE Rao BREAST BI LIMITEDon 89-15-4398[place] [id number] Ultrasound Report Signed Patient: ARIADNA HALEY MR#: [id number] : 1980 Acct:[id number] Age/Sex: 43 / F ADM Date: 04/06/24 Loc: US Attending Dr: Luan Valdivia D.O. Ordering Physician: Luan Valdivia D.O. Date of Service: 04/06/24 Procedure(s): US breast BI limited Accession Number(s): [id number] cc: GAY DE LA TORRE ; Luan Valdivia D.O. Patient Name: ARIADNA HALEY MR#: [id number] : 1980 Exam Date: 04/06/2024 Ordering Doctor: [...] stomach cancer at age 56. LOCATION: [facility] BREAST COMPOSITION: There are scattered [...] Ann M.D. Signed By: 04/07/2441 DD/ TD/TT: Lead Assistant Manager:TBHRadiology, Radiologist, MD - 04/07/2024 [place] [address] Ultrasound Report Signed Patient: ARIADNA HALEY MR#: [id number] : 1980 Acct:[id number] Age/Sex: 43 / F ADM Date: 04/06/24 Loc: US Attending Dr: Luan Valdivia D.O. Ordering Physician: Luan Valdivia D.O. Date of Service: 04/06/24 Procedure(s): US breast BI limited Accession Number(s): [id number] cc: GAY DE LA TORRE ; Luan Valdivia D.O. Patient Name: ARIADNA HALEY MR#: [id number] : 1980 Exam Date: 04/06/2024 Ordering Doctor: [...] stomach cancer at age 56. LOCATION: [facility] BREAST COMPOSITION: There are scattered [...] Ann M.D. Signed By: 04/07/2441 DD/ TD/TT: Lead Assistant Manager: MABLE Rao PELVIS W/ TRANSVAGINALon 71-41-8269[place] [address] Ultrasound Report Signed Patient: ARIADNA HALEY MR#: [id number] : 1980 Acct:[id number] Age/Sex: 43 / F ADM Date: 04/06/24 Loc: LAB Attending Dr: Oly Plascencia Ordering Physician: Oly Plascencia Date of Service: 04/06/24 Procedure(s): US pelvis w/ transvaginal Accession Number(s): [id number] cc: GAY Mcpherson [place] [id number] Patient Name: ARIADNA HALEY MRN: [id number] date: 1980 Sex: F Assigned Patient Location: LAB Current Patient Location: Accession/Order Number: [id number] Exam Date: 04/06/2024 15:45 Report Date: 04/07/2024 [...] Signed By: 04/07/24 0451 DD/ 0448 TD/TT: Lead Assistant Manager:TBHRadiology, Radiologist, MD - 04/07/2024 The [place] [id number] Ultrasound Report Signed Patient: ARIADNA HALEY MR#: [id number] : 1980 Acct:[id number] Age/Sex: 43 / F ADM Date: 04/06/24 Loc: LAB Attending Dr: Oly Plascencia Ordering Physician: Oly Plascencia Date of Service: 04/06/24 Procedure(s): US pelvis w/ transvaginal Accession Number(s): [id number] cc: GAY Mcpherson The [address] [address] Patient Name: ARIADNA HALEY MRN: [id number] date: 1980 Sex: F Assigned Patient Location: LAB Current Patient Location: Accession/Order Number: [id number] Exam Date: 04/06/2024 15:45 Report Date: 04/07/2024 [...] Signed By: 04/07/24 0451 DD/ 0448 TD/TT: Lead Assistant Manager: MABLE HealthcareRadiology Study observation (narrative)NOM HealthcareUS PELVIS W/ TRANSVAGINALOrdered By: Radiologist Radiology on 24-58-2694KSYCSSM DePaul Health Center Work Phone: all CBC WITH AUTO DIFFon 76-19-2757JHTDHLIWN ABSOLUTE AUTO0.1NOMS HealthcareBasophils/100 WBC (Bld)0.4 %0.2 - 2.0 %[facility]OMS Healthcare Eosinophils/100 WBC (Bld)0.4 %Low0.9 - 7.0 %NOM HealthcareErythrocyte distribution width (RBC) [Ratio]15.1 %High11.0 - 15.0 %NOMS HealthcareHematocrit (Bld) [Volume fraction]39.7 %36.0 - 48.0 %NOM HealthcareHemoglobin (Bld) [Mass/Vol]13 g/dL12.0 - 16.0 g/dLNOMI HealthcareIMMATURE GRANULOCYTES ABS AUTO 0.1HighNOMS HealthcareImmature granulocytes/100 WBC (Bld)0.9 %High0.0 - 0.5 % [facility] Health CenterInterpretation and review of laboratory resultsAbnormJefferson HealthLYMPHOCYTES ABSOLUTE AUTO2.1NOMS [facility]itt[facility] Medical CenterLymphocytes/100 WBC (Bld) 18.4 %Low20.5 - 60.0 %[facility] CenterH (RBC) [Entitic mass]30.9 pg26.7 - 34.0 pgSSM DePaul Health CenterMCHC (RBC) [Mass/Vol]32.7 g/dL29.9 - 35.2 g/dLSSM DePaul Health Center MCV (RBC) [Entitic vol]94.3 fL81.0 - 99.0 fLSSM DePaul Health CenterMONOCYTES ABSOLUTE AUTO0.8SSM [facility] Health CenterMonocytes/100 WBC (Bld)6.7 %1.7 - 12.0 %[facility] NEUTROPHILS ABSOLUTE AUTO8.3HighSSM DePaul Health CenterNeutrophils/100 WBC (Bld)73.2 % 43.0 - 75.0 %[facility] Health CenterPlatelet mean volume (Bld) [Entitic vol]10.1 fL9.5 - 13.5 fLSSM DePaul Health CenterTB EO #0.1NOMS [facility] Medical CenterTB KMK763MQFDFreeman Health System RBC 4.21NOFreeman Health System WBC11.4HMidwest Orthopedic Specialty HospitalCLINISYNCNFitzgibbon Hospital THYROID STIM HORMONEon 18-62-8152Iiqahzztfienrs and review of laboratory results AbnormalWashington County Memorial Hospital Qn0.333 m[IU]/LLowThree Rivers Healthcare THYROXINE (T4) FREEon 68-29-8180Sapm T4 [Mass/Vol]1.01 ng/dL0.76 - 1.46 ng/dLSSM DePaul Health Center CLINISYNCSSM DePaul Health CenterCCF APTTon 63-74-4346vYCI Coag (Bld) [Time]25.6 [facility] Medical CenterMLR HEMOGLOBIN A1Con 21-32-1817Ibclpkf [Mass/Vol]134 mg/dLSSM DePaul Health CenterHbA1c (Bld) [Mass fraction]6.3 %High4.5 - 6.2 %SSM DePaul Health CenterComment on above:ADA RECOMMENDED LIMIT 4.0 - 6.0 ADA THERAPEUTIC TARGET < 7.0 ACTION SUGGESTED > 7.0 Interpretation and review of laboratory resultsAbnormalNOMS HealthcareCLINISYNC NOMS HealthcareNo Panel Informationon 08-45-6143PGLVQPZJZYUWC Healthcare CLINISYNCNOCenterPointe HospitalOH PROTHROMBIN TIME INR W/O COUMon 91-36-6391HH Coag (PPP) [Time]9.6 sNARBUCKLE MEMORIAL [facility] SULPHUR HealthcareTBH INR<0.93NOMS HealthcareComment on above: DESIRED INR: 2.0-3.0 CONDITIONS NOT LISTED BELOW 2.5-3.5 FOR PROSTHETIC HEART VALVE REPLACEMENT 2.5-3.5 RECURRENT THROMBOSIS TBH PREG QUANT HCGon 77-62-6625DXM QUANTITATIVE<1mIU/mLNOMS HealthcareComment on above:5-50 0.2-1 WEEK 50-500 1-2 WEEKS 100-5,000 2-3 WEEKS 500-10,000 3-4 WEEKS 1,000-50,000 4-5 WEEKS 10,000-100,000 5-6 WEEKS 15,000-200,000 6-8 WEEKS 10,000-100,000 2-3 MONTHS CNPNon 73-16-0594BRVUYfdxhwJwfkabafx Clinic ClevelandHCG ( test) Ql (U) on 87-37-5719Eiiakcgagwfrpk and review of laboratory resultsNormalSSM DePaul Health CenterPreg Test, UrNegativeNegativeNOMissouri Rehabilitation Center HealthcareUrinalysis macro (dipstick) panel (U)on 54-41-9382Paeufgfsb, UANegativeNegative - 4(70) +++ mg/dLNOMS HealthcareBlood, UAPositiveNegative - 50 Dusty/mcLNOMS Healthcare Comment on above:largeClarity, UACloudyNOMS HealthcareColor, UADark AmberNOMS HealthcareGlucose, UAPositiveNegative - 1999(110) ++++ mg/dLNOMS Healthcare Comment on above:100 mgInterpretation and review of laboratory resultsAbrmJohn E. Fogarty Memorial Hospital HealthcareKetones, UANegativeNegative - 160(16) ++++ mg/dLNOMS Healthcare Leukocytes, UAPositiveNegative - 500+++ Andi/mcLNOMS HealthcareComment on above: smallNitrite, UANegativeNegative - PositiveNOMS HealthcarepH, UA5.55 - 9NOMS HealthcareProtein, UAPositiveNegative - 1999(20) ++++ mg/dLNOMS Healthcare Comment on above:30 mgSpec Grav, UA1.031 - 1.03NOMS HealthcareUrobilinogen, UA 0.20.2 - 12 mg/dLNOMS HealthcareNOMS HealthcareOffice Visiton 10-03-3906Lbnlvd- up [id number] Ariadna Haley Melissa 1980 F Date Provider Department Center 03/08/2024 271-[facility] Family History Problem Relation Age of Onset Heart failure Maternal Grandmother Heart attack Maternal Grandfather Family Status - Relation Status Age at Maternal Grandmother Maternal Grandfather Level of Service:[address] CT OFFICE/OUTPATIENT NEW MODERATE MDM 45 MINUTESNormal Mansfield HospitalHCG ( test) IA.rapid Ql (U)Ordered By: Adolfo Kang on 12-99-3994YAG ( test) Ql (U)NegativeUniversity Hospitals St. John Medical CenterALL DEHYDROEPIANDROSTERONEon 98-83-0925KRVE, SERUM25 ng/rIHvxqsfox80 - 701 ng/dLNOMS HealthcareComment on above:This test was developed and its performance characteristics determined by [employer]. It has not been cleared or approved by the Food and Drug Administration. Performed at: [address] [id number] Assistant Analyst: Senait Hardin MD, Phone: [phone] Interpretation and review of laboratory resultsAbnormalNOMS HealthcareCLINISYNC NOMS HealthcareALL DHEA SULFATEon 35-58-0460OYRP-OGPDKAO67.4 ug/nAWvzmhjyp86.3 - 279.2 ug/dLNOMS HealthcareALL FOLLICLE STIMULATING HORMONEon 12-46-9613BTH93.0. mIU/mLNOMS HealthcareComment on above:Adult Female Range Follicular phase 3.5 - 12.5 Ovulation phase 4.7 - 21.5 Luteal phase 1.7 - 7.7 Postmenopausal 25.8 - 134.8 ALL LUTEINIZING HORMONEon 99-79-8332IUVFODFBWUE HORMONE(LH)24.9. mIU/mLNOMS HealthcareComment on above:Adult Female Range Follicular phase 2.4 - 12.6 Ovulation phase 14.0 - 95.6 Luteal phase 1.0 - 11.4 Postmenopausal 7.7 - 58.5 No Panel Informationon 77-13-7129Lzykkrybbwccda and review of laboratory results AbnormalNOMS HealthcareCLINISYNCNOMS HealthcareTBH PROLACTINon 11-19-2023 PROLACTIN4.7 ng/mLAbnormal4.8 - 33.4 ng/mLNOMS HealthcareComment on above: Performed at: - [facility] [id number] Assistant Analyst: Doyle Mendenhall PhD, Phone: [phone] US PELVIS W/ TRANSVAGINALon 25-06-0394[place]oe[place] [address] Ultrasound Report Signed Patient: ARIADNA HALEY MR#: [id number] : 1980 Acct:[id number] Age/Sex: 43 / F ADM Date: 11/18/23 Loc: US Attending Dr: Luan Valdivia D.O. Ordering Physician: Luan Valdivia D.O. Date of Service: 11/18/23 Procedure(s): US pelvis w/ transvaginal Accession Number(s): [id number] cc: GAY DE LA TORRE ; Luan Valdivia D.O. [place] [id number] Patient Name: ARIADNA HALEY MRN: [id number] date: 1980 Sex: F Assigned Patient Location: US Current Patient Location: US Accession/Order Number: [id number] Exam Date: 11/18/2023 14:00 Report Date: 11/18/2023 [...] Signed By: 11/18/23 1642 DD/ 1639 TD/TT: Lead Assistant Manager:TBHRadiology, Radiologist, MD - 11/18/2023 [place] [address] Ultrasound Report Signed Patient: ARIADNA HALEY MR#: [id number] : 1980 Acct:[id number] Age/Sex: 43 / F ADM Date: 11/18/23 Loc: US Attending Dr: Luan Valdivia D.O. Ordering Physician: Luan Valdivia D.O. Date of Service: 11/18/23 Procedure(s): US pelvis w/ transvaginal Accession Number(s): [id number] cc: GAY DE LA TORRE ; Luan Valdivia D.O. The [place] [id number] Patient Name: ARIADNA HALEY MRN: [id number] date: 1980 Sex: F Assigned Patient Location: US Current Patient Location: US Accession/Order Number: [id number] Exam Date: 11/18/2023 14:00 Report Date: 11/18/2023 [...] Signed By: 11/18/23 1642 DD/ 1639 TD/TT: Lead Assistant Manager: NOMS HealthcareRadiology Study observation (narrative)NOMS HealthcareUS PELVIS W/ TRANSVAGINALOrdered By: Radiologist Radiology on 16-81-0615NFAVSSM DePaul Health Center Work Phone: no Panel InformationOrdered By: Radiologist Radiology on 86-36-7592UJCLSSM DePaul Health Center Work Phone: no Panel Informationon 43-39-0362Mnhxkfoaz Study observation (narrative)[facility] SANITARIUMS HealthcareXR LUMBAR SPINE MIN 4Von 74-59-9512PngBon[place] [id number] XRay Report Signed Patient: ARIADNA HALEY MR#: [id number] : 1980 Acct:[id number] Age/Sex: 42 / F ADM Date: 09/28/23 Loc: [facility] Attending Dr: ZITA CUELLAR Ordering Physician: ZITA CUELLAR Date of Service: 09/28/23 Procedure(s): XR lumbar spine min 4V Accession Number(s): [id number] cc: GAY DE LA TORRE ; ZITA CUELLAR [address] [address] Patient Name: ARIADNA HALEY MRN: [id number] date: 1980 Sex: F Assigned Patient Location: [facility] Current Patient Location: Accession/Order Number: [id number] Exam Date: 09/28/2023 14:41 Report Date: 09/29/2023 [...] M.D. Signed By: 09/29/23724 DD/ 1 TD/TT: Lead Assistant Manager:TBHRadiology, Radiologist, - 09/29/2023 [place] [address] XRay Report Signed Patient: ARIADNA HALEY MR#: [id number] : 1980 Acct:[id number] Age/Sex: 42 / F ADM Date: 09/28/23 Loc: [facility] Attending Dr: ZITA CUELLAR Ordering Physician: ZITA CUELLAR Date of Service: 09/28/23 Procedure(s): XR lumbar spine min 4V Accession Number(s): [id number] cc: GAY DE LA TORRE ; ZITA CUELLAR [place] [address] Patient Name: ARIADNA HALEY MRN: [id number] date: 1980 Sex: F Assigned Patient Location: [facility] Current Patient Location: Accession/Order Number: [id number] Exam Date: 09/28/2023 14:41 Report Date: 09/29/2023 [...] M.D. Signed By: 09/29/23724 DD/ 1 TD/TT: Lead Assistant Manager: MABLE [facility] 3Von [id number] [place] [address] XRay Report Signed Patient: ARIADNA HALEY MR#: [id number] : 1980 Acct:[id number] Age/Sex: 42 / F ADM Date: 09/28/23 Loc: RAD Attending Dr: ZITA CUELLAR Ordering Physician: ZITA CUELLAR Date of Service: 09/28/23 Procedure(s): XR thoracic spine 3V Accession Number(s): [id number] cc: GAY DE LA TORRE ; ZITA CUELLAR [place] [address] Patient Name: ARIADNA HALEY MRN: [id number] date: 1980 Sex: F Assigned Patient Location: [facility] Current Patient Location: Accession/Order Number: [id number] Exam Date: 09/28/2023 14:43 Report Date: 09/29/2023 [...] M.D. Signed By: 09/29/23724 DD/ 1 TD/TT: Lead Assistant Manager:DARLENEHRadiology, Radiologist, - 09/29/2023 [place] [address] XRay Report Signed Patient: ARIADNA HALEY MR#: [id number] : 1980 Acct:[id number] Age/Sex: 42 / F ADM Date: 09/28/23 Loc: [facility] Attending Dr: ZITA CUELLAR Ordering Physician: ZITA CUELLAR Date of Service: 09/28/23 Procedure(s): XR thoracic spine 3V Accession Number(s): [id number] cc: GAY DE LA TORRE ; ZITA CUELLAR [address] [place] [address] Patient Name: ARIADNA HALEY MRN: [id number] date: 1980 Sex: F Assigned Patient Location: [facility] Current Patient Location: Accession/Order Number: [id number] Exam Date: 09/28/2023 14:43 Report Date: 09/29/2023 [...] M.D. Signed By: 09/29/23724 DD/ 1 TD/TT: Lead Assistant Manager: MABLE [facility]itt[facility] Medical CenterLINDA 12 [place] 56-69-5791CNG revealed normal sinus rhythmCPCincinnati Shriners Hospital Work Phone: cbc AUTO DIFFon 08-20-1535RLZO #0.1 103/ulNormal 0.0-0.1The [facility] HospitalComment on above:Performed By: #### UAMIC #### [facility] [address] [place] [address] Dr. Manda YorkBasophils/100 WBC (Bld)0.6 %Normal0.2-2.0The [facility] Comment on above:Performed By: #### UAMIC #### [facility] [address] [place] [address] [address] Manda Shafer #0.1 103/ulNormal0.0-0.7The [facility] HospitalComment on above: Performed By: #### UAMIC #### [facility] [address] [address] [address] Manda Noonanosinophils/100 WBC (Bld)0.6 %Critically low0.9-7.0The [facility] HospitalComment on above:Performed By: #### UAMIC #### [facility] [address] [address] [address] Manda Noonanrythrocyte distribution width (RBC) [Ratio]14.6 %Ysayxp79.0-15.0 The [facility] HospitalComment on above:Performed By: #### UAMIC #### [facility] [address] [address] [address] Manda YorkHematocrit (Bld) [Volume fraction]43.4 %Fnlpfn19.0-48.0The [facility] HospitalComment on above:Performed By: #### UAMIC #### [facility] [address] [place] [address] Dr. Manda YorkHemoglobin (Bld) [Mass/Vol]13.7 g/eCWcmels45.0-16.0The [facility]ckley HospitalComment on above:Performed By: #### UAMIC #### [facility] [address] [place] [address] Dr. Manda Calderon #0.12 10e3/ulCritically high0.00-0.03The [facility] Comment on above:Performed By: #### UAMIC #### [facility] [address] [place] [address] Dr. Manda YorkIG %0.8 %Critically high0.0-0.5The [facility] HospitalComment on above:Performed By: #### UAMIC #### [facility] [address] [place] [address] Dr. Manda Laguna #2.6 103/ulNormal1.2-3.8The [facility] HospitalComment on above:Performed By: #### UAMIC #### [facility] [address] [place] [address] Dr. Manda Kasperhocytes/100 WBC (Bld)18.3 %Critically low20.5-60.0The [facility] HospitalComment on above:Performed By: #### UAMIC #### [facility] [address] [place] [address] Dr. Manda YorkMANUAL DIFF REQNONormalThe [facility] County HospitalComment on above: Performed By: #### UAMIC #### [facility] [address] [place] [address] Dr. Manda Gil (RBC) [Entitic mass]29.0 axArwriq58.7-34.0The [facility] HospitalComment on above:Performed By: #### UAMIC #### [facility] [address] [place] [address] Dr. Manda CardosoHC (RBC) [Mass/Vol]31.6 g/wGDogybz82.9-35.2The [facility] HospitalComment on above:Performed By: #### UAMIC #### [facility] [address] [place] [address] Dr. Manda CardosoV (RBC) [Entitic vol]91.8 tHUwtphv35.0-99.0The [facility] HospitalComment on above:Performed By: #### UAMIC #### [facility] [address] [place] [address] Dr. Manda Maciel #0.7 103/ulNormal0.3-0.8The [facility] HospitalComment on above:Performed By: #### UAMIC #### [facility] [address] [place] [address] Dr. Manda Coteocytes/100 WBC (Bld)5.1 %Normal1.7-12.0The [facility] Comment on above:Performed By: #### UAMIC #### [facility] [address] [place] [address] Dr. Manda Claudio #10.6 103/ulCritically high1.4-6.5The [facility] Comment on above:Performed By: #### UAMIC #### [facility] [address] [place] [address] Dr. Manda Longutrophils/100 WBC (Bld)74.6 %Giyldj68.0-75.0The [facility] HospitalComment on above:Performed By: #### UAMIC #### [facility] [address] [place] [address] Dr. Manda Ferreiralet mean volume (Bld) [Entitic vol]9.4 fLCritically low 9.5-13.5The [facility] HospitalComment on above:Performed By: #### UAMIC #### [facility] [address] [place] [address] Dr. Manda YorkPLT307 103/onYmujcs262-732[facility] on above: Performed By: #### UAMIC #### [facility] [address] [place] [address] Dr. Manda YorkRBC4.73 106/ulNormal4.20-5.40The [facility] on above:Performed By: #### UAMIC #### [facility] [address] [place] [address] Dr. Manda YorkWBC14.2 103/ulCritically high4.0-11.0The [facility] HospitalCommymichigan medical center sault on above:Performed By: #### UAMIC #### [facility] [address] [place] [address] Dr. Manda YorkFREE T4on 78-13-2082Upej T4 [Mass/Vol]1.31 ng/dLNormal0.76-1.46 The [facility] HospitalCommymichigan medical center sault on above:Performed By: #### FT4 #### [facility] [address] [place] [address] Dr. Manda YorkGLYCOHEMOGLOBIN A1Con 61-93-7191IWK RECOMMENDATIONSEE BELOWNormal The [facility] HospitalComment on above:Result Comment: ADA RECOMMENDED LIMIT 4.0 - 6.0 ADA THERAPEUTIC TARGET < 7.0 ACTION SUGGESTED > 7.0Performed By: #### A1C #### [facility] [address] [place] [address] Dr. Manda YorkGlucose [Mass/Vol]120 mg/dLNormalThe [facility] on above:Performed By: #### A1C #### [facility] [address] [place] [address] Dr. Manda YorkHbA1c (Bld) [Mass fraction]5.8 %Normal4.5-6.2The [facility] HospitalCommymichigan medical center sault on above:Performed By: #### A1C #### [facility] [address] [place] [address] Dr. Manda YorkPREG QUANT HCGon 69-52-2249YNB QUANT<1NormalThe [facility] Comment on above:Performed By: #### FT4 #### [facility] [address] [place] [address] [address] HospitalComment on above: Result Comment: 5-50 0.2-1 WEEK 50-500 1-2 WEEKS 100-5,000 2-3 WEEKS 500-10,000 3-4 WEEKS 1,000-50,000 4-5 WEEKS 10,000-100,000 5-6 WEEKS 15,000-200,000 6-8 WEEKS 10,000-100,000 2-3 MONTHSPerformed By: #### FT4 #### [facility] [address] [place] [address] Dr. Manda Reagan 24-15-1960SPE Coag (PPP) [Relative time]{INR}NormalThe [facility] County HospitalComment on above:Performed By: #### FT4 #### [facility] [address] [place] [address] Dr. Manda Bah [facility] BELOWThe Surgical Hospital at SouthwoodsComment on above:Result Comment: DESIRED INR: 2.0 - 3.0 CONDITIONS NOT LISTED BELOW 2.5 - 3.5 FOR PROSTHETIC HEART VALVE REPLACEMENT 2.5 - 3.5 RECURRENT THROMBOSIS Performed By: #### FT4 #### [facility] [address] [place] [address] Dr. Manda YorkPT Coag (PPP) [Time]9.6 sNormal9.0-11.6The [facility] Comment on above:Performed By: #### FT4 #### [facility] [address] [place] [address] Dr. Manda Crews 93-60-0845gQJA Coag (Bld) [Time]28.2 fBzfudj12.3-36.2The [facility] HospitalComment on above:Performed By: #### FT4 #### [facility] [address] [place] [address] Dr. Manda Fowler 03-01-4559WBV1.300 uIU/mLCritically low0.358-3.740The [facility] HospitalComment on above:Performed By: #### FT4 #### [facility] [address] [place] [address] Dr. Manda Post PELVIS TRANSVAGon 60-81-9348JJ PELVIS TRANSVAGEXAMINATION: US PELVIS TRANSVAG HISTORY: Excessive [...] Electronically authenticated by: AURORA SHAIKH Date: 2022-09-24 17:50[facility] ACOG PANEL 2: 30 to 65on 09-18-2022..NormalThe [facility] HospitalComment on above:Result Comment: Performed at: WBPerformed By: #### FT4 #### [facility] [address] [place] [address] Dr. Manda Ceballos Gdln ACOG Rsvanxt52-43NktyhoQtlSelect Medical Specialty Hospital - CincinnatiComment on above:Performed By: #### FT4 #### [facility] [address] [place] [address] Dr. Manda YorkDIAGNOSIS:CommentThe Surgical Hospital at SouthwoodsComment on above: Result Comment: NEGATIVE FOR INTRAEPITHELIAL LESION OR MALIGNANCY. Performed at: WBPerformed By: #### FT4 #### [facility] [address] [place] [address] Dr. Manda YorkHPV AptimaNegativeNormalNegativeBlanchard Valley Health SystemComment on above:Result Comment: This nucleic acid amplification test detects fourteen high-risk HPV types (16,18,31,33,35,39,45,51,52,56,58,59,66,68) without differentiation. Performed at: =GPerformed By: #### FT4 #### [facility] [address] [place] [address] Dr. Manda YorkHPV Genotype ReflexCommentMiami Valley Hospital on above:Result Comment: Criteria not met, HPV Genotype not performed. Performed at: WBPerformed By: #### FT4 #### [facility] [address] [place] [address] Dr. Manda YokrMethodology:CommentMiami Valley Hospital on above: Result Comment: This liquid based ThinPrep(R) pap test was screened with the use of an image guided system. Performed at: WBPerformed By: #### FT4 #### [place] [address] Dr[address] Manda YorkNote:CommentMiami Valley Hospital on above:Result Comment: The Pap smear is a screening test designed to aid in the detection of premalignant and malignant conditions of the uterine cervix. It is not a diagnostic procedure and should not be used as the sole means of detecting cervical cancer. Both false-positive and false-negative reports do occur. . Performed at: WBPerformed By: #### FT4 #### [place] [address] Dr. Manda YorkPerformed by:CommentNoMorrow County Hospital on above: Result Comment: Charles Peters, Medicinal Plant Picker (ASCP) Performed at: WBPerformed By: #### FT4 #### [facility] [address] [place] [address] Dr. Manda YorkSpecimen adequacy:CommentMiami Valley Hospital on above:Result Comment: Satisfactory for evaluation. Endocervical and/or squamous metaplastic cells (endocervical component) are present. Performed at: WBPerformed By: #### FT4 #### [facility] [address] [place] [address] Dr. Manda YorkCytology Cervical or vaginal smear or scraping studyOrdered By: Hazel Torres on 50-50-4570STTM HealthcareMG MAMM SCREEN 3D SELENE CADon 51-21-8968FT MAMM SCREEN 3D SELENE CADPatient: ARIADNA HALEY Exam Date: 09/01/2022 : 1980 Gender:F Ordering : DR MANUEL FERRIS . Admission #: [id number] Family : Order #: [id number] CLICK HERE TO VIEW EXAM RADIOLOGY REPORT [...] stomach cancer at age 56. LOCATION: [facility] BREAST COMPOSITION: Scattered areas fibroglandular density. [...] by: Sayda Ann M.D. on 09/02/2022 at 12:32The [facility] Hospital [facility] SouthwoodsMRI KNEE RT WO CONon 30-82-2264OCH KNEE RT WO CONHISTORY: Right knee pain [...] Electronically authenticated by: MANUEL READER Date: 2022-04-01 08:24The [facility] Hospital at SouthwoodsPNEUMOCOCCAL IGG ABS, 23 SEROTYPESon 68-22-0900Wxcgbdsdcbme InterpretationSMercy Memorial Hospital. pneumoniae 1 IgG (S) [Mass/Vol]0.27 ug/mLCleveland ClinicS. pneumoniae 12 IgG (S) [Mass/Vol]0.08 ug/mLCleveland ClinicS. pneumoniae 14 IgG (S) [Mass/Vol]0.19 ug/mLCleveland ClinicS. pneumoniae 17 IgG (S) [Mass/Vol]1.72 ug/mLCleveland ClinicS. pneumoniae 19 IgG (S) [Mass/Vol]1.52 ug/mLCleveland ClinicS. pneumoniae 2 IgG (S) [Mass/Vol]0.44 ug/mL [facility]. pneumoniae 20 IgG (S) [Mass/Vol]1.53 ug/mLCleveland [...] 8 IgG (S) [Mass/Vol]0.58 ug/mL [facility]. pneumoniae 9 IgG (S) [Mass/Vol]0.4 ug/mLCleveland ClinicS. pneumoniae Ugandan type 15B IgG (S) [Mass/Vol]8.27 ug/mLCleveland ClinicS. pneumoniae Ugandan type 18C IgG (S) [Mass/Vol]0.39 ug/mLCleveland ClinicS. pneumoniae Ugandan type 19A IgG (S) [Mass/Vol]17.72 ug/mLCleveland ClinicS. pneumoniae Ugandan type 33F IgG (S) [Mass/Vol]3.04 ug/mLCleveland ClinicS. pneumoniae Ugandan type 6B IgG (S) [Mass/Vol]0.82 ug/mLCleveland ClinicS. pneumoniae Ugandan type 7F IgG (S) [Mass/Vol]0.34 ug/mLCleveland ClinicS. pneumoniae Ugandan type 9V IgG (S) [Mass/Vol]0.78 ug/mLCleveland ClinicXR KNEE RT 4V or >on 40-92-5825BE KNEE RT 4V or >IMAGES REVIEWED: XR KNEE RT 4V or > COMPARISON: None available. CLINICAL INDICATION: Injury of right knee FINDINGS/IMPRESSION: 1. No evidence of acute osseous abnormality of the right knee. 2. Nonspecific small suprapatellar effusion. 3. Mild anterior infrapatellar knee soft tissue swelling. Electronically authenticated by: KRISTINA GARRETT Date: 2022-03-21 16:47The [facility] Hospital at SouthwoodsDIPHTHER/TETANUS ABon 03-20-2022. diphtheriae IgG Qn (S)0.1 IU/mLCleveland United Hospital. tetani toxoid IgG IA Qn1 IU/mLCleveland ClinicIGA BLDon 54-46-8859RlM [Mass/Vol]182 mg/dL70 - 400 mg/dLScci Hospital LimaIGE BLDon 14-10-7874RiD Qn12.3 kU/l<114.0 kU/lCleveland ClinicIGGon 64-35-0925MwD [Mass/Vol]618 mg/nWHkb319 - 1,600 mg/dLScci Hospital LimaIGMon 90-46-7568QdH [Mass/Vol]514 mg/gUNrav47 - 230 mg/dLScci Hospital LimaImmunodeficiency panel FC (Bld)on 71-85-4941WF1 cells (Bld) [#/Vol]2841 cells/zAPcnt545 - 2,388 cells/uL [facility] Hospital LimaCD3 cells/100 cells (Bld)81 %60 - 89 %[facility] Hospital LimaCD3+CD4+ (T4 helper) cells (Bld) [#/Vol]1621 cells/uL533 - 1,674 cells/uLScci Hospital Lima CD3+CD4+ (T4 helper) cells/100 cells (Bld)46 %34 - 61 %[facility] Hospital LimaCD3+CD4+ (T4 helper) cells/CD3+CD8+ (T8 suppressor cells) cells (Bld) [# ratio]1.55 %1.10 - 3.25Scci Hospital LimaCD3+CD8+ (T8 suppressor cells) cells (Bld) [#/Vol]1049 cells/jFHctl042 - 958 cells/uLScci Hospital LimaCD3+CD8+ (T8 suppressor cells) cells/100 cells (Bld)30 %10 - 41 %[facility] LimaCD3-CD16+CD56+ (Natural killer) cells (Bld) [#/Vol]193 cells/uL102 - 565 cells/uLScci Hospital LimaCD3- CD16+CD56+ (Natural killer) cells/100 cells (Bld)5 %5 - 25 %[facility] LimaCD3- CD19+ cells (Bld) [#/Vol]475 cells/uL75 - 660 cells/uLScci Hospital LimaCD3-CD19+ cells/100 cells (Bld)13 %5 - 22 %[facility] W Auto Differential panel (Bld)on 10-63-2741Jtcbspphf (Bld) [#/Vol]0.07 10*3/uL<0.11 k/uLScci Hospital Lima Basophils/100 WBC (Bld)0.6 %[facility] Hospital LimaDifferential cell count method Nom (Bld)AutoCleveland ClinicEosinophils (Bld) [#/Vol]0.18 10*3/uL<0.46 k/uL [facility] LimaEosinophils/100 WBC (Bld)1.6 %[facility] Hospital LimaErythrocyte distribution width (RBC) [Ratio]14.6 %11.5 - 15.0 %[facility] Hospital LimaHematocrit (Bld) [Volume fraction]40.5 %36.0 - 46.0 %[facility] LimaHemoglobin (Bld) [Mass/Vol]13.0 g/dL11.5 - 15.5 g/dLScci Hospital LimaImmature granulocytes (Bld) [#/Vol]0.06 10*3/uL<0.10 k/uLScci Hospital LimaImmature granulocytes/100 WBC (Bld) 0.5 %[facility] Hospital LimaLymphocytes (Bld) [#/Vol]2.97 10*3/uL1.00 - 4.00 k/uL [facility] LimaLymphocytes/100 WBC (Bld)26.9 %[facility] HospitalH (RBC) [Entitic mass]28.4 pg26.0 - 34.0 pgClevelRiver's Edge HospitalHC (RBC) [Mass/Vol]32.1 g/dL30.5 - 36.0 g/dLHarrison Community HospitalV (RBC) [Entitic vol]88.4 fL80.0 - 100.[address] Luke'S HospitalMonocytes (Bld) [#/Vol]0.79 10*3/uL<0.87 k/uLScci Hospital Lima Monocytes/100 WBC (Bld)7.2 %[facility] Hospital LimaNeutrophils (Bld) [#/Vol]6.97 10*3/uL1.45 - 7.50 k/uLCleveland ClinicNeutrophils/100 WBC (Bld)63.2 %[facility] Hospital LimaNucleated RBC (Bld) [#/Vol]<0.01 k/uLScci Hospital LimaNucleated RBC/100 WBC (Bld) [Ratio]0.0 /100 WBCScci Hospital LimaPlatelet mean volume (Bld) [Entitic vol]9.9 fL9.0 - 12.7 fLCMercy Health Willard HospitalPlatelets (Bld) [#/Vol]314 10*3/uL150 - 400 k/uLScci Hospital LimaRBC (Bld) [#/Vol]4.58 10*6/uL3.90 - 5.20 m/uLScci Hospital LimaWBC (Bld) [#/Vol]11.04 10*3/uLHigh3.70 - 11.00 k/[facility] ECHOCARDIO M/2D COMPLETEon 71-64-8731SYOZWSQJOV M/2D COMPLETEPatient: ARIADNA HALEY Exam Date: 03/12/2022 : 1980 Gender:F Ordering : DR MANUEL FERRIS . Admission #: [id number] Family : Order #: [id number] CLICK HERE TO VIEW EXAM ECHOCARDIOGRAM REPORT [...] at 16:47NormalThUniversity Hospitals Lake West Medical CenterINSULINon 49-77-2320Qzzthav48.8 uIU/mLNormal2.6-24.9Bl[facility] Valley Health SystemComment on above:Performed By: #### CBC #### [facility] [address] [place] [address] Dr. Manda Bruce AUTO DIFFon 69-27-6301JSZY #0.1 103/ulNormal0.0-0.1[facility] Health SystemComment on above:Performed By: #### CBC #### [facility] [address] [place] [address] Dr. Manda YorkBasophils/100 WBC (Bld)0.4 %Normal0.2-2.0[facility] Comment on above:Performed By: #### CBC #### [facility] [address] [place] [address] Dr. Manda Shafer #0.2 103/ulNormal0.0-0.7The [facility] HospitalComment on above: Performed By: #### CBC #### [facility] [address] [place] [address] Dr. Manda Noonanosinophils/100 WBC (Bld)1.2 %Normal0.9-7.0[facility] Comment on above:Performed By: #### CBC #### [facility] [address] [place] [address] Dr. Manda Noonanrythrocyte distribution width (RBC) [Ratio]14.6 %Jfwtsu04.0-15.0 [facility] SystemComment on above:Performed By: #### CBC #### [facility] [address] [place] [address] Dr. Yilan ChangHematocrit (Bld) [Volume fraction]39.2 %Ottauf60.0-48.0The [facility] HospitalComment on above:Performed By: #### CBC #### [facility] [address] [place] [address] Dr. Manda YorkHemoglobin (Bld) [Mass/Vol]12.7 g/zAHjjdbe99.0-16.0The Ackley HospitalComment on above:Performed By: #### CBC #### [facility] [address] [place] [address] Dr. Manda YorkIG #0.06 10e3/ulCritically high0.00-0.03The [facility] Comment on above:Performed By: #### CBC #### [facility] [address] [place] [address] Dr. Manda YorkIG %0.5 %Normal0.0-0.5The [facility] HospitalComment on above: Performed By: #### CBC #### [facility] [address] [place] [address] Dr. Manda Laguna #3.7 103/ulNormal1.2-3.8The [facility] HospitalComment on above:Performed By: #### CBC #### [facility] [address] [place] [address] Dr. Manda Kasperhocytes/100 WBC (Bld)31.0 %Gceqkf87.5-60.0The [facility] HospitalComment on above:Performed By: #### CBC #### [facility] [address] [place] [address] Dr. Manda YorkMANUAL DIFF REQNONormalThe [facility] HospitalComment on above: Performed By: #### CBC #### [facility] [address] [place] [address] Dr. Manda Gil (RBC) [Entitic mass]28.9 rzMqzvfw42.7-34.0The [facility] HospitalComment on above:Performed By: #### CBC #### [facility] [address] [place] [address] Dr. Manda Koch (RBC) [Mass/Vol]32.4 g/oAZbsidk59.9-35.2The [facility] HospitalComment on above:Performed By: #### CBC #### [facility] [address] [place] [address] [address] Manda Bradshaw (RBC) [Entitic vol]89.1 cCSmxuyn19.0-99.0The [facility] HospitalComment on above:Performed By: #### CBC #### [facility] [address] [place] [address] Dr. Manda Maciel #0.7 103/ulNormal0.3-0.8The [facility] HospitalComment on above:Performed By: #### CBC #### [facility] [address] [place] [address] Dr. Manda Coteocytes/100 WBC (Bld)5.8 %Normal1.7-12.0[facility] Comment on above:Performed By: #### CBC #### [facility] [address] [place] [address] Dr. Manda Claudio #7.3 103/ulCritically high1.4-6.5The [facility] Comment on above:Performed By: #### CBC #### [facility] [address] [place] [address] Dr. Manda Longutrophils/100 WBC (Bld)61.1 %Cduupn67.0-75.0The [facility] HospitalComment on above:Performed By: #### CBC #### [facility] [address] [place] [address] Dr. Manda Ferreiralet mean volume (Bld) [Entitic vol]9.7 fLNormal9.5-13.5The [facility] HospitalComment on above:Performed By: #### CBC #### [facility] [address] [place] [address] Dr. Manda YorkPLT297 103/veRkpnqw191-224Ubu [facility] HospitalComment on above: Performed By: #### CBC #### [facility] [address] [address] [address] Manda YorkRBC4.40 106/ulNormal4.20-5.40The [facility] HospitalComment on above:Performed By: #### CBC #### [facility] [address] [place] [address] Dr. Manda YorkWBC12.0 103/ulCritically high4.0-11.0The [facility] HospitalComment on above:Performed By: #### CBC #### [facility] [address] [place] [address] Dr. Manda YorkFRADAMA THYROXINE INDEX T7on 13-39-7448EQU2.19Gddzvn5.30-4.50The [facility] HospitalComment on above:Performed By: #### UAMIC #### [facility] [address] [place] [address] Dr. Manda YorkT3U34.0 %Swkubp21.0-39.0The [facility] HospitalComment on above: Performed By: #### UAMIC #### [facility] [address] [place] [address] Dr. Manda YorkT4 [Mass/Vol]11.20 ug/dLNormal4.80-13.90The [facility] Comment on above:Performed By: #### UAMIC #### [facility] [address] [place] [address] Dr. Manda YorkGLYCOHEMOGLOBIN A1Con 05-32-2840GPQ RECOMMENDATIONSEE BELOWNormal The [facility] HospitalComment on above:Result Comment: ADA RECOMMENDED LIMIT 4.0 - 6.0 ADA THERAPEUTIC TARGET < 7.0 ACTION SUGGESTED > 7.0Performed By: #### SLEAl THYLC #### [facility] [address] [place] [address] Dr. Manda YorkGlucose [Mass/Vol]117 mg/dLNormalThe [facility] HospitalComment on above:Performed By: #### SLEAl THYLC #### [facility] [address] [place] [address] Dr. Manda YorkHbA1c (Bld) [Mass fraction]5.7 %Normal4.5-6.2The [facility] Hospital - Dublinment on above:Performed By: #### LUIGI LAWLER #### [facility] [address] [place] [address] [address] Manda Garcia 34-52-3758Jdgm [Mass/Vol]61.0 ug/nZUvunin93.0-170.0The [facility] HospitalComment on above:Performed By: #### CBC #### [facility] [address] [place] [address] [address] Manda Gilbert PROFILEon 93-81-2577TXKR-HDL RATIO NORMSEE [facility] Medical CenterCommymichigan medical center sault on above:Result Comment: 3.3 - 4.4 LOW RISK 4.4 - 7.1 AVERAGE RISK 7.1 - 11.0 MODERATE RISK >11.0 HIGH RISKPerformed By: #### UAMIC #### [facility] [facility] [address] [place] [address] Dr. Manda Dislaesterol [Mass/Vol]260 mg/dLCritically high<=200The [facility] on above:Performed By: #### UAMIC #### [facility] [address] [address] [address] Manda Dislaesterol in HDL [Mass/Vol]38 mg/dLCritically blr00-69Ezx [facility] on above:Performed By: #### UAMIC #### [facility] [address] [address] [address] Manda YorkCholesterol in LDL [Mass/Vol]170.8 mg/dLMiami Valley Hospital on above:Performed By: #### UAMIC #### [facility] [address] [place] [address] Dr. Manda Carroll.total/Cholesterol in HDL [Mass ratio]6.8 {ratio} NormalThe [facility] on above:Performed By: #### UAMIC #### [facility] [address] [address] [address] Manda Marte NORMAL> or = 60 mg/dl - LOW CARDIOVASCULAR RISK <40 mg/dl - HIGH CARDIOVASCULAR RISKThe Surgical Hospital at SouthwoodsComment on above:Performed By: #### UAMIC #### [facility] [address] [place] [address] Dr. Manda Zamora CALC NORMALSEE BELOWThe Surgical Hospital at SouthwoodsCommymichigan medical center sault on above:Result Comment: <100 mg/dl OPTIMAL 100 - 129 mg/dl NEAR OR ABOVE OPTIMAL 130 - 159 mg/dl BORDERLINE HIGH 160 - 189 mg/dl HIGH >190 mg/dl VERY HIGH Performed By: #### UAMIC #### [facility] [address] [place] [address] Dr. Manda YorkTriglyceride [Mass/Vol]256 mg/dLCritically high<=150[facility] on above:Performed By: #### UAMIC #### [facility] [address] [place] [address] Dr. Manda YorkVLDL CALC51.2 mg/dLNoSelect Medical Specialty Hospital - CincinnatiComment on above: Performed By: #### UAMIC #### [facility] [address] [place] [address] Dr. Manda YorkPROF 14(COMP METB)on 27-88-3566Ssugfbd [Mass/Vol]3.8 g/dLNormal 3.4-5.0The [facility] HospitalCommymichigan [facility] sault on above:Performed By: #### UAMIC #### [facility] [address] [place] [address] Dr. Manda YorkAlbumin/Globulin [Mass ratio]1.0 {ratio}NormalThe [facility] HospitalCommymichigan medical center sault on above:Performed By: #### UAMIC #### [facility] [address] [place] [address] Dr. Manda Toney [Catalytic activity/Vol]66 U/YCkmqxv07-978Rgc [facility] on above:Performed By: #### UAMIC #### [facility] [address] [place] [address] Dr. Manda Person [Catalytic activity/Vol]27 U/JHfmbjq00-25Eih [facility]Commymich[facility] sault on above:Performed By: #### UAMIC #### [facility] [address] [address] [address] Manda Gregoryon gap [Moles/Vol]11.8 mmol/LNormalThe [facility] Comment on above:Performed By: #### UAMIC #### [facility] [address] [address] [address] Manda YorkAST [Catalytic activity/Vol]9 U/LCritically wvy22-27Tkt [facility] HospitalComment on above:Performed By: #### UAMIC #### [facility] [address] [address] [address] Manda YorkBilirubin [Mass/Vol]0.2 mg/dLNormal0.2-1.0The [facility] Comment on above:Performed By: #### UAMIC #### [facility] [address] [address] [address] Manda YorkCalcium [Mass/Vol]9.1 mg/dLNormal8.5-10.1The [facility] Comment on above:Performed By: #### UAMIC #### [facility] [address] [address] [address] Manda YorkChloride [Moles/Vol]101 mmol/FZjazcs00-600Jai [facility] Comment on above:Performed By: #### UAMIC #### [facility] [address] [address] [address] Manda YorkCO2 [Moles/Vol]26.1 mmol/TZhwjdy20.0-32.0The [facility] Comment on above:Performed By: #### UAMIC #### [facility] [address] [address] [address] Manda YorkCreatinine [Mass/Vol]0.80 mg/dLNormal0.55-1.02The [facility] HospitalComment on above:Performed By: #### UAMIC #### [facility] [address] [address] [address] Holman ChangEGFR-AF BOTSWANAN>60Normal>=60The [facility] HospitalComment on above:Performed By: #### UAMIC #### [facility] [address] [address] [address] Manda NoonanGFR-NON AF BOTSWANAN>60Normal>=60The [facility] HospitalComment on above:Performed By: #### UAMIC #### [facility] [address] [address] [address] Manda YorkGlobulin (S) [Mass/Vol]3.8 g/dLNormOhioHealth Arthur G.H. Bing, MD, Cancer CenterComment on above:Performed By: #### UAMIC #### [facility] [address] [address] [address] Manda YorkGlucose [Mass/Vol]93 mg/hISuevfp98-833Ocr [facility] Comment on above:Performed By: #### UAMIC #### [facility] [address] [address] [address] Manda YorkPotassium [Moles/Vol]3.9 mmol/LNormal3.5-5.1The [facility] Comment on above:Performed By: #### UAMIC #### [facility] [address] [address] [address] Manda YorkProtein [Mass/Vol]7.6 g/dLNormal6.4-8.2The [facility] Comment on above:Performed By: #### UAMIC #### [facility] [address] [address] [address] Manda YorkSodium [Moles/Vol]135 mmol/LCritically lgr640-401Ehe [facility] HospitalComment on above:Performed By: #### UAMIC #### [facility] [address] [address] [address] Manda YorkUrea nitrogen [Mass/Vol]10.0 mg/dLNormal7.0-18.0The [facility] HospitalComment on above:Performed By: #### UAMIC #### [facility] [address] [address] [address] Manda YorkUrea nitrogen/Creatinine [Mass ratio]12.5 mg/mgNormalThUniversity Hospitals Lake West Medical CenterComment on above:Performed By: #### UAMIC #### [facility] [address] [address] [address] Manda Fowler 14-76-6347GMM6.610 uIU/mLNormal0.358-3.740The [facility] HospitalComment on above:Performed By: #### UAMIC #### [facility] [address] [address] [address] Manda YorkB2 MICROGLOBULIN Bon 52-58-5550Zxji-2-Microglobulin [Mass/Vol]1.8 ug/mL0.8 - 2.4 mg/LCleveland ClinicFERRITIN BLDon 48-10-9456Ljvqtmth [Mass/Vol] 33.2 ng/mL14.7 - 205.1 ng/mLCleveland ClinicFOLATE SERUMon 87-78-4193Nlkcpy [Mass/Vol]6.6 ng/mL>4.7 ng/mLCleveland ClinicIron and Iron binding capacity panelon 32-90-0063Ztld [Mass/Vol]49 ug/dL41 - 186 ug/dLCleveland ClinicIron binding capacity [Mass/Vol]392 ug/vJVufg579 - 386 ug/dLLewisville ClinicIron/TIBC [Molar ratio]12.5 %Low15.0 - 57.0 %[facility] LimaCBC W Auto Differential panel (Bld)on 45-35-1530Qvxqqrnow (Bld) [#/Vol]0.07 10*3/uL<0.11 k/uLScci Hospital LimaBasophils/100 WBC (Bld)0.6 %[facility] LimaDifferential cell count method Nom (Bld)AutoCleveland ClinicEosinophils (Bld) [#/Vol]0.19 10*3/uL<0.46 k/uL [facility] LimaEosinophils/100 WBC (Bld)1.7 %[facility] Hospital LimaErythrocyte distribution width (RBC) [Ratio]14.7 %11.5 - 15.0 %[facility] LimaHematocrit (Bld) [Volume fraction]40.0 %36.0 - 46.0 %[facility] LimaHemoglobin (Bld) [Mass/Vol]13.0 g/dL11.5 - 15.5 g/dLScci Hospital LimaImmature granulocytes (Bld) [#/Vol]0.07 10*3/uL<0.10 k/uLScci Hospital LimaImmature granulocytes/100 WBC (Bld) 0.6 %[facility] Hospital LimaLymphocytes (Bld) [#/Vol]3.31 10*3/uL1.00 - 4.00 k/uL [facility] LimaLymphocytes/100 WBC (Bld)30.2 %[facility] HospitalH (RBC) [Entitic mass]28.9 pg26.0 - 34.0 pgCSelect Medical Cleveland Clinic Rehabilitation Hospital, Edwin ShawHC (RBC) [Mass/Vol]32.5 g/dL30.5 - 36.0 g/dLHarrison Community HospitalV (RBC) [Entitic vol]88.9 fL80.0 - 100.0 fLClevelCleveland Clinic Medina HospitalMonocytes (Bld) [#/Vol]0.70 10*3/uL<0.87 k/uLScci Hospital Lima Monocytes/100 WBC (Bld)6.4 %[facility] Hospital LimaNeutrophils (Bld) [#/Vol]6.63 10*3/uL1.45 - 7.50 k/uLScci Hospital LimaNeutrophils/100 WBC (Bld)60.5 %[facility] Hospital LimaNucleated RBC (Bld) [#/Vol]<0.01 k/uLScci Hospital LimaNucleated RBC/100 WBC (Bld) [Ratio]0.0 /100 WBCScci Hospital LimaPlatelet mean volume (Bld) [Entitic vol]9.6 fL9.0 - 12.7 fLCMercy Health Willard HospitalPlatelets (Bld) [#/Vol]355 10*3/uL150 - 400 k/uLScci Hospital LimaRBC (Bld) [#/Vol]4.50 10*6/uL3.90 - 5.20 m/[facility]omerene HospitalWBC (Bld) [#/Vol]10.97 10*3/uL3.70 - 11.00 k/[facility] Calcium.ionized [Moles/Vol]on [id number].ionized (Bld) [Mass/Vol]1.26 mmol/L1.08 - 1.30 mmol/LCMercy Health Willard HospitalCalcium.ionized adjusted to pH 7.4 (Bld) [Moles/Vol]1.25 mmol/L1.08 - 1.30 mmol/LCleveland St. Luke'S HospitalComprehensive metabolic 2000 panelon 95-84-0480Fowvfzn [Mass/Vol]4.3 g/dL3.9 - 4.9 g/dLScci Hospital Lima ALP [Catalytic activity/Vol]70 U/L34 - 123 U/LCleveland ClinicALT [Catalytic activity/Vol]26 U/L7 - 38 U/LCleveland ClinicAnion gap [Moles/Vol]7 mmol/LLow9 - 18 mmol/LCleveland ClinicAST [Catalytic activity/Vol]12 U/LLow13 - 35 U/L [facility] LimaBilirubin [Mass/Vol]0.2 mg/dL0.2 - 1.3 mg/dLScci Hospital Lima Calcium [Mass/Vol]9.3 mg/dL8.5 - 10.2 mg/dLScci Hospital LimaChloride [Moles/Vol] 103 mmol/L97 - 105 mmol/LCleveland ClinicCO2 [Moles/Vol]28 mmol/L22 - 30 mmol/L [facility] LimaCreatinine [Mass/Vol]0.69 mg/dL0.58 - 0.96 mg/dLScci Hospital Lima Estimated Glomerular Filtration Utmw011 mL/min/1.73m>=60 mL/min/1.73mCleveland St. Luke'S HospitalGlucose [Mass/Vol]100 mg/iGPevn15 - 99 mg/dLScci Hospital LimaPotassium [Moles/Vol]3.9 mmol/L3.7 - 5.1 mmol/LCleveland ClinicProtein [Mass/Vol]7.0 g/dL 6.3 - 8.0 g/dLKettering Health Daytonodium [Moles/Vol]138 mmol/L136 - 144 mmol/L [facility] LimaUrea nitrogen [Mass/Vol]12 mg/dL7 - 21 mg/dLScci Hospital LimaLD LACTATE DEHYDROon 06-90-9546MVN [Catalytic activity/Vol]135 U/L135 - 214 U/L [facility] LimaPHOSPHORUS INORGANICon 50-48-1681Krjhzqrmg [Mass/Vol]3.2 mg/dL 2.7 - 4.8 mg/dLScci Hospital LimaURIC ACID BLOODon 05-18-0718Dtpdk [Mass/Vol]5.2 mg/dL2.5 - 6.6 mg/dLScci Hospital LimaIMMUNOGLOBULINS IGA/IGM/IGG/IGE QUANTITAon 70-38-3413Llwulvoiobyoex A, Qn, Wceks240 mg/ySDuoage15-042RlfBlanchard Valley Health System Comment on above:Result Comment: Performed at: CBPerformed By: #### SLEA, THYLC #### [facility] [address] [address] [address] Manda YorkImmunoglobulin E, Total10 IU/mLNormal6-495[facility] Comment on above:Result Comment: Performed at: BNPerformed By: #### SLEA, THYLC #### [facility] [address] [address] [address] Manda YorkImmunoglobulin G, Qn, Ioral843 mg/lMRilypv200-4357QiqBlanchard Valley Health SystemComment on above:Result Comment: Performed at: CBPerformed By: #### SLEA, THYLC #### [facility] [address] [address] [address] Manda YorkImmunoglobulin M, Qn, Fnfln921 mg/dLCritically cdyw41-205LpaBlanchard Valley Health SystemComment on above:Result Comment: Performed at: CBPerformed By: #### SLEA, THYLC #### [facility] [address] [place] [address] Dr. Manda Pickard by IFAon 55-83-7059Iqngepfmmkz Antibodies, IFANegativeNormal The [facility] HospitalComment on above:Result Comment: Negative <1:80 Borderline 1:80 Positive >1:80 ICAP nomenclature: AC-0 For more information about Hep-2 cell patterns use ANApatterns.org, the official website for the International Consensus on Antinuclear Antibody (CHRISTIAN) Patterns (ICAP).Performed By: #### SLEA, THYLC #### [facility] [address] [place] [address] Dr. Manda YorkTHYROID ANTIBODIESon 31-40-4662Ikwukwlvdnyze Antibody<1.0Normal 0.0-0.9[facility] SystemComment on above:Result Comment: Thyroglobulin Antibody measured by [employer] MethodologyPerformed By: #### FT4 #### [facility] [address] [place] [address] Dr. Manda YorkThyroid Peroxidase (TPO) Ab<5Opkcdj5-18Yed [facility] Comment on above:Performed By: #### FT4 #### [facility] [address] [place] [address] Dr. Manda YorkPROTEIN ELECTROPHERESISon 79-32-0990Ewkhcee [Mass/Vol]3.2 g/dL Normal2.9-4.4The [facility] HospitalComment on above:Performed By: #### FT4 #### [facility] [address] [place] [address] Dr. Manda YorkAlbumin/Globulin [Mass ratio]1.0 {ratio}Normal0.7-1.7The [facility] HospitalComment on above:Performed By: #### FT4 #### [facility] [address] [place] [address] Dr. Manda YorkQifhqFuyxq-3-Mgcvvrnz1.2 g/dLNormal0.0-0.4The [facility] HospitalComment on above:Performed By: #### FT4 #### [facility] [address] [place] [address] Dr. Manda YorkZsyzuBceub-0-Wbxjeflf2.9 g/dLNormal0.4-1.0The [facility] HospitalComment on above:Performed By: #### FT4 #### [facility] [address] [place] [address] Dr. Manda YorkBeta Globulin1.2 g/dLNormal0.7-1.3The [facility] HospitalComment on above:Performed By: #### FT4 #### [facility] [address] [place] [address] Dr. Manda YorkGamma Globulin0.9 g/dLNormal0.4-1.8The [facility] HospitalComment on above:Performed By: #### FT4 #### [facility] [address] [place] [address] Dr. Manda YorkGlobulin (S) [Mass/Vol]3.2 g/dLNormal2.2-3.9[facility] Comment on above:Performed By: #### FT4 #### [facility] [address] [place] [address] Dr. Manda Montes De Oca-SpikeNot ObservedNormalNot ObservedBlanchard Valley Health SystemComment on above:Performed By: #### FT4 #### [facility] [address] [place] [address] Dr. Manda Mares.NormalThe [facility] HospitalComment on above:Performed By: #### FT4 #### [facility] [address] [place] [address] Dr. Manda Oswald note:CommentNormalThe [facility] HospitalComment on above: Result Comment: Protein electrophoresis scan will follow via computer, mail, or special services coordinator delivery.Performed By: #### FT4 #### [facility] [address] [place] [address] Dr. Manda YorkProtein [Mass/Vol]6.4 g/dLNormal6.0-8.5The [facility] Comment on above:Performed By: #### FT4 #### [facility] [address] [place] [address] Dr. Manda Echavarria PROFILE Aon 94-49-8444Fxed-DNA (DS) Ab Qn9 IU/mLNormal0-9[facility] SystemComment on above:Result Comment: Negative <5 Equivocal 5 - 9 Positive >9Performed By: #### LEANN LAWLERC #### [facility] [address] [place] [address] Dr. Manda YorkAntichromatin Antibodies<0.9Syoxdv4.0-0.9[facility] Comment on above:Performed By: #### NURIS THYLC #### [facility] [address] [place] [address] Dr. Manda Sanches Latex Turbid.<10.0Normal<14.0The [facility] HospitalComment on above:Performed By: #### LEANN LAWLERC #### [facility] [address] [place] [address] Dr. Manda Chowdary Antibodies<0.5Chrbjf5.0-0.9The [facility] HospitalComment on above:Performed By: #### NURIS THYLC #### [facility] [address] [place] [address] Dr. Manda Harmon Anti-SS-A<0.9Nisvun3.0-0.9The [facility] HospitalComment on above:Performed By: #### SLEAl THYLC #### [facility] [address] [place] [address] Dr. Manda Harmon Anti-SS-B<0.9Aecxkp7.0-0.9The [facility] HospitalCommymichigan medical center sault on above:Performed By: #### NURIS THYLC #### [facility] [address] [place] [address] Dr. Manda Lloyd Antibodies<0.4Wualrg3.0-0.9The [facility] HospitalComment on above:Performed By: #### NURIS THYLC #### [facility] [address] [place] [address] Dr. Manda YorkANTISTREPTOLYSIN O AB (ASO)on 35-25-8963Uilxrirbcgbrgpqy O Ab49.6 IU/mLNormal0.0-200.0The [facility] on above:Performed By: #### ASOAB #### [facility] [address] [place] [address] Dr. Manda YorkMICROALBUMIN URINEon 43-65-5837Iyqmwmk, Urine<3.0NormalNot Estab. The [facility] HospitalComment on above:Result Comment: Verified by repeat analysisPerformed By: #### CBC #### [facility] [address] [place] [address] Dr. Manda YorkT4, T3U, FTI LABCORPon 44-19-7772Dadl Thyroxine Index2.6Normal 1.2-4.9The [facility] Hospital - Dublinment on above:Performed By: #### SLEAl THYLC #### [facility] [address] [address] [address] Manda YorkT3 Zzgdmt51 %Ykykqv39-30Jyo [facility] HospitalComment on above: Performed By: #### LUIGI LAWLER #### [facility] [address] [address] [address] Manda YorkT4 [Mass/Vol]9.9 ug/dLNormal4.5-12.0The [facility] HospitalComment on above:Performed By: #### LUIGI LAWLER #### [facility] [address] [place] [address] Dr. Manda Bruce AUTO DIFFon 32-87-2697PBEP #0.1 103/ulNormal0.0-0.1The [facility] HospitalComment on above:Performed By: #### UAMIC #### [facility] [address] [place] [address] Dr. Manda YorkBasophils/100 WBC (Bld)0.6 %Normal0.2-2.0The [facility] Comment on above:Performed By: #### UAMIC #### [facility] [address] [place] [address] Dr. Manda Shafer #0.3 103/ulNormal0.0-0.7The [facility] HospitalComment on above: Performed By: #### UAMIC #### [facility] [address] [place] [address] Dr. Manda Noonanosinophils/100 WBC (Bld)3.4 %Normal0.9-7.0The [facility] Comment on above:Performed By: #### UAMIC #### [facility] [address] [place] [address] Dr. Manda Noonanrythrocyte distribution width (RBC) [Ratio]14.6 %Mdvmld72.0-15.0 The [facility] HospitalComment on above:Performed By: #### UAMIC #### [facility] [address] [place] [address] Dr. Manda YorkHematocrit (Bld) [Volume fraction]39.1 %Rnaxog05.0-48.0The [facility] HospitalComment on above:Performed By: #### UAMIC #### [facility] [address] [place] [address] Dr. Manda YorkHemoglobin (Bld) [Mass/Vol]12.4 g/oITgbejb90.0-16.0The [facility] HospitalComment on above:Performed By: #### UAMIC #### [facility] [address] [place] [address] Dr. Manda Calderon #0.03 10e3/ulNormal0.00-0.03The [facility] HospitalComment on above:Performed By: #### UAMIC #### [facility] [address] [place] [address] Dr. Manda Calderon %0.3 %Normal0.0-0.5The [facility] HospitalComment on above: Performed By: #### UAMIC #### [facility] [address] [place] [address] Dr. Manda Laguna #3.6 103/ulNormal1.2-3.8The [facility] HospitalComment on above:Performed By: #### UAMIC #### [facility] [address] [place] [address] Dr. Manda Kasperhocytes/100 WBC (Bld)39.9 %Anajbg37.5-60.0The [facility] HospitalComment on above:Performed By: #### UAMIC #### [facility] [address] [place] [address] Dr. Manda Dela CruzUAL DIFF REQNONormalThe [facility] HospitalComment on above: Performed By: #### UAMIC #### [facility] [address] [place] [address] Dr. Manda Cardoso (RBC) [Entitic mass]28.4 rgYzmyxx95.7-34.0The [facility] HospitalComment on above:Performed By: #### UAMIC #### [facility] [address] [place] [address] Dr. Manda Cardoso (RBC) [Mass/Vol]31.7 g/jUMlmnpj34.9-35.2The [facility] HospitalComment on above:Performed By: #### UAMIC #### [facility] [address] [place] [address] Dr. Manda CardosoV (RBC) [Entitic vol]89.7 zIFcveac39.0-99.0The [facility] HospitalComment on above:Performed By: #### UAMIC #### [facility] [address] [place] [address] Dr. Manda Maciel #0.7 103/ulNormal0.3-0.8The [facility] HospitalComment on above:Performed By: #### UAMIC #### [facility] [address] [place] [address] Dr. Manda Coteocytes/100 WBC (Bld)7.3 %Normal1.7-12.0The [facility] Comment on above:Performed By: #### UAMIC #### [facility] [address] [place] [address] Dr. Manda Claudio #4.4 103/ulNormal1.4-6.5The [facility] HospitalComment on above:Performed By: #### UAMIC #### [facility] [address] [place] [address] Dr. Manda Tuttleophils/100 WBC (Bld)48.5 %Ehhqhb72.0-75.0The [facility] HospitalComment on above:Performed By: #### UAMIC #### [facility] [address] [place] [address] Dr. Manda Ferreiralet mean volume (Bld) [Entitic vol]10.1 fLNormal9.5-13.5The [facility] HospitalComment on above:Performed By: #### UAMIC #### [facility] [address] [place] [address] Dr. Manda LewisT310 103/djAskthc677-821Iem [facility] HospitalComment on above: Performed By: #### UAMIC #### [facility] [address] [place] [address] Dr. Manda YorkRBC4.36 106/ulNormal4.20-5.40The [facility] - Dublinment on above:Performed By: #### UAMIC #### [facility] [address] [place] [address] Dr. Manda YorkWBC9.0 103/ulNormal4.0-11.0The [facility] HospitalComment on above: Performed By: #### UAMIC #### [facility] [address] [place] [address] Dr. Manda YorkCROwen 85-59-1354ICJ [Mass/Vol]mg/LNormal<=1.0The [facility] - Dublinment on above:Performed By: #### UAMIC #### [facility] [address] [place] [address] Dr. Manda YorkCULTKEILA URINEon 87-54-2190PTUFRWW URINECulture Observations: LIGHT GROWTH OF MIXED GENITAL AMBER. NO POTENTIAL PATHOGENS SEEN.NormalThe [facility] HospitalComment on above:Performed By: #### CBC #### [facility] [address] [place] [address] Dr. Manda YorkPROF 14(COMP METB)on 83-56-8815Updrnah [Mass/Vol]3.5 g/dLNormal 3.4-5.0The [facility] HospitalComment on above:Performed By: #### UAMIC #### [facility] [address] [place] [address] Dr. Manda YorkAlbumin/Globulin [Mass ratio]1.0 {ratio}NormalThe [facility] HospitalComment on above:Performed By: #### UAMIC #### [facility] [address] [place] [address] Dr. Manda Toney [Catalytic activity/Vol]71 U/WYpnbxu81-656Aqp [facility] on above:Performed By: #### UAMIC #### [facility] [address] [place] [address] Dr. Manda Person [Catalytic activity/Vol]46 U/NHxgsvb61-18Jha [facility] HospitalComment on above:Performed By: #### UAMIC #### [facility] [address] [address] [address] Manda Gregoryon gap [Moles/Vol]11.6 mmol/LNormalThe [facility] Comment on above:Performed By: #### UAMIC #### [facility] [address] [address] [address] Manda YorkAST [Catalytic activity/Vol]15 U/RWgavee40-05Eex [facility] HospitalComment on above:Performed By: #### UAMIC #### [facility] [address] [address] [address] Manda YorkBilirubin [Mass/Vol]0.2 mg/dLNormal0.2-1.0The [facility] Comment on above:Performed By: #### UAMIC #### [facility] [address] [place] [address] Dr. Manda YorkCalcium [Mass/Vol]8.7 mg/dLNormal8.5-10.1The [facility] Comment on above:Performed By: #### UAMIC #### [facility] [address] [place] [address] Dr. Manda YorkChloride [Moles/Vol]104 mmol/HNacnce38-407Icf [facility] Comment on above:Performed By: #### UAMIC #### [facility] [address] [place] [address] Dr. Manda YorkCO2 [Moles/Vol]25.1 mmol/OEdbhxk20.0-32.0The [facility] Comment on above:Performed By: #### UAMIC #### [facility] [address] [place] [address] Dr. Manda YorkCreatinine [Mass/Vol]0.80 mg/dLNormal0.55-1.02The [facility] HospitalComment on above:Performed By: #### UAMIC #### [facility] [address] [place] [address] Dr. Manda NoonanGFR-AF BOTSWANAN>60Normal>=60The [facility] HospitalComment on above:Performed By: #### UAMIC #### [facility] [address] [address] [address] Manda NoonanGFR-NON AF BOTSWANAN>60Normal>=60The [facility] HospitalComment on above:Performed By: #### UAMIC #### [facility] [address] [address] [address] Manda YorkGlobulin (S) [Mass/Vol]3.6 g/dLNormOhioHealth Arthur G.H. Bing, MD, Cancer CenterComment on above:Performed By: #### UAMIC #### [facility] [address] [address] [address] Manda YorkGlucose [Mass/Vol]92 mg/vSRrcgvq12-402RvpBlanchard Valley Health System Comment on above:Performed By: #### UAMIC #### [facility] [address] [address] [address] Manda YorkPotassium [Moles/Vol]3.7 mmol/LNormal3.5-5.1The [facility] Comment on above:Performed By: #### UAMIC #### [facility] [address] [address] [address] Manda YorkProtein [Mass/Vol]7.1 g/dLNormal6.4-8.2[facility] Comment on above:Performed By: #### UAMIC #### [facility] [address] [address] [address] Manda YorkSodium [Moles/Vol]137 mmol/WMqrwis077-745Gum [facility] Comment on above:Performed By: #### UAMIC #### [facility] [address] [address] [address] Manda YorkUrea nitrogen [Mass/Vol]17.0 mg/dLNormal7.0-18.0The [facility] HospitalComment on above:Performed By: #### UAMIC #### [facility] [address] [address] [address] Manda YorkUrea nitrogen/Creatinine [Mass ratio]21.2 mg/mgNormOhioHealth Arthur G.H. Bing, MD, Cancer CenterComment on above:Performed By: #### UAMIC #### [facility] [address] [address] [address] Manda Mckeon RATE WESTERGRENon 72-21-0472OVS RATE40 mm/hrCritically high <=20The [facility] Dublinment on above:Performed By: #### SEDR #### [facility] [address] [address] [address] Manda Fowler 50-95-5939QIB7.155 uIU/mLNormal0.358-3.740The [facility] HospitalComment on above:Performed By: #### UAMIC #### [facility] [address] [address] [address] Manda Lynch RANDOM W/MICROSCOPICon [id number] SEENNormalNONE SEENBlanchard Valley Health SystemComment on above:Performed By: #### UAMIC #### [facility] [address] [address] [address] Manda Plummer Ql (U)NegativeNormalNEGATIVEThe [facility] Comment on above:Performed By: #### UAMIC #### [facility] [address] [address] [address] Manda KimNONE SEENNormalNONE SEENBlanchard Valley Health SystemComment on above:Performed By: #### UAMIC #### [facility] [address] [address] [address] Manda Dietz (U)CLEARNormalCLEARThe [facility] HospitalComment on above: Performed By: #### UAMIC #### [facility] [address] [address] [address] Manda Meadows (U)LT. YELLOWNormalYELLOWBlanchard Valley Health SystemComment on above:Performed By: #### UAMIC #### [facility] [address] [place] [address] Dr. Manda Oconnell LM Nom (Urine sed)NONE SEENNormalNONE SEENBlanchard Valley Health SystemComment on above:Performed By: #### UAMIC #### [facility] [address] [place] [address] Dr. Manda Donaldsonthelial cells LM Ql (Urine sed)RARENormalNONE SEEN /RAREThe [facility] HospitalComment on above:Performed By: #### UAMIC #### [facility] [address] [address] [address] Manda YorkGlucose Ql (U)NegativeNormalNEGATIVEBlanchard Valley Health SystemComment on above:Performed By: #### UAMIC #### [facility] [address] [address] [address] Manda YorkHemoglobin Ql (U)NegativeNormalNEGATIVEBethesda North Hospital on above:Performed By: #### UAMIC #### [facility] [address] [address] [address] Manda YorkKetones Ql (U)NegativeNormalNEGATIVEBlanchard Valley Health SystemComment on above:Performed By: #### UAMIC #### [facility] [address] [address] [address] Manda YorkLEUKOCYTESNegativeNormalNEGATIVEBlanchard Valley Health SystemComment on above:Performed By: #### UAMIC #### [facility] [address] [address] [address] Manda YorkMUCOUSNONE SEENNormalNONE SEENBlanchard Valley Health SystemComment on above:Performed By: #### UAMIC #### [facility] [address] [address] [address] Manda YokrNitrite Ql (U)NegativeNormalNEGATIVEBlanchard Valley Health SystemComment on above:Performed By: #### UAMIC #### [facility] [address] [address] [address] Manda YorkpH (U)6.0 [pH]Normal5-9[facility] Health SystemComment on above: Performed By: #### UAMIC #### [facility] [address] [address] [address] Manda YorkRBCNONE SEENAbnormal0-2The [facility] HospitalComment on above: Performed By: #### UAMIC #### [facility] [address] [place] [address] Dr. aMnda YorkSPEC GRAVITY1.516Yesthu5.005-<=1.025The [facility] HospitalComment on above:Performed By: #### UAMIC #### [facility] [address] [place] [address] Dr. Manda Lynch PROTEINNegativeNormalNEGATIVE/ TRACEThe [facility] Comment on above:Performed By: #### UAMIC #### [facility] [address] [place] [address] Dr. Manda Thompsonbilinogen Qn (U)0.2 {Carmella'U}/dLNormal0.2 - 1.0The [facility] HospitalComment on above:Performed By: #### UAMIC #### [facility] [address] [place] [address] Dr. Manda YenBCNONOzzy SEENNormalNONE SEENThe [facility] HospitalComment on above: Performed By: #### UAMIC #### [facility] [address] [place] [address] Dr. Manda YorkURIC ACID SERUMon [id number] [Mass/Vol]4.2 mg/dLNormal 2.6-6.0The [facility] HospitalComment on above:Performed By: #### UAMIC #### [facility] [address] [place] [address] Dr. Manda YorkVITAMIN D 25 OHon [id number] D 25-OH22.4 ng/mLNormalThe [facility] HospitalComment on above:Performed By: #### FT4 #### [facility] [address] [place] [address] Dr. Manda Hays RANGESSEE BELOWThe Surgical Hospital at SouthwoodsComment on above: Result Comment: <20 ng/mL Vit D deficient 20 - <30 ng/mL Vit D insufficient 30 - 100 ng/mL Vit D sufficient >100 ng/mL Potential ToxicityPerformed By: #### FT4 #### [facility] [address] [place] [address] Dr. Yilan ChangMETANEPHRINES FRAC. QNT 24 HR URINEon [id number], U,19qgQfpovnhJljpzw88-158Phj Bellevue HospitalComment on above:Result Comment: No total volume submitted. Unable to calculate 24 hour result.Performed By: #### LEANN LAWLERC #### [facility] [address] [place] [address] Dr. Manda YorkMetanephrine, Ur57 ug/LNormalUndefinedBlanchard Valley Health System Comment on above:Performed By: #### LEANN LAWLERC #### [facility] [address] [place] [address] Dr. Manda Barcenasrmetanephr.,U,64wPdmlaclGkvpde659-546Kcp [facility] Comment on above:Result Comment: No total volume submitted. Unable to calculate 24 hour result.Performed By: #### LEANN LAWLERC #### [facility] [address] [place] [address] Dr. Manda Barcenasrmetanephrine, Ur116 ug/LNormalUndefinedBlanchard Valley Health System Comment on above:Performed By: #### LEANN LAWLERC #### [facility] [address] [place] [address] Dr. Manda YorkMETANEPHRINES PLASMA FREEon [id number], Pl22.1 pg/mL Normal0.0-88.0[facility] Health SystemComment on above:Performed By: #### LUIGI LAWLER #### [facility] [address] [place] [address] Dr. Manda YorkNormetanephrine, Pl50.7 pg/mLNormal0.0-218.9[facility] Comment on above:Performed By: #### LEANN LAWLERC #### [facility] [address] [place] [address] Dr. Manda YorkCMV PLASMA PCRon [id number] Quant DNA PCR (Plasma)Negative NormalNegativeBlanchard Valley Health SystemComment on above:Result Comment: No CMV DNA detected. The quantitative range of this assay is 200 to 1 million IU/mL.Performed By: #### SLEA, THYLC #### [facility] [address] [place] [address] Dr. Manda Yorklog10 CMV Qn DNA PlUPTCALNoSelect Medical Specialty Hospital - CincinnatiComment on above:Result Comment: Unable to calculate result since non-numeric result obtained for component test.Performed By: #### SLEAl THYLC #### [facility] [address] [place] [address] Dr. Manda NavarreteV AB IGMon [id number] (CMV) Ab, IgM43.2 AU/mL Critically high0.0-29.9The [facility] HospitalComment on above:Result Comment: Negative <30.0 Equivocal 30.0 - 34.9 Positive >34.9 A positive result is generally indicative of acute infection, reactivation or persistent IgM production.Performed By: #### NURIS THYLC #### [facility] [address] [place] [address] Dr. Manda NavarreteV AB, IGGon [id number] (CMV) Ab, IgG>10.00 Critically high0.00-0.59The [facility] HospitalComment on above:Result Comment: Negative <0.60 Equivocal 0.60 - 0.69 Positive >0.69Performed By: #### CMVIGG #### [facility] [address] [place] [address] Dr. Manda Bruce AUTO DIFFon [id number] #0.1 103/ulNormal0.0-0.1The [facility] HospitalComment on above:Performed By: #### CBC #### [facility] [address] [place] [address] Dr. Manda YorkBasophils/100 WBC (Bld)0.6 %Normal0.2-2.0The [facility] Comment on above:Performed By: #### CBC #### [facility] [address] [place] [address] Dr. Holman ChangEO #0.2 103/ulNormal0.0-0.7The [facility] HospitalComment on above: Performed By: #### CBC #### [facility] [address] [address] [address] Manda Noonanosinophils/100 WBC (Bld)2.3 %Normal0.9-7.0The [facility] Comment on above:Performed By: #### CBC #### [facility] [address] [place] [address] Dr. Manda Noonanrythrocyte distribution width (RBC) [Ratio]14.2 %Fzqiyz35.0-15.0 The [facility] HospitalComment on above:Performed By: #### CBC #### [facility] [address] [place] [address] Dr. Manda YorkHematocrit (Bld) [Volume fraction]40.2 %Xltsia22.0-48.0The [facility] HospitalComment on above:Performed By: #### CBC #### [facility] [address] [place] [address] Dr. Manda YorkHemoglobin (Bld) [Mass/Vol]12.8 g/sDDskqee49.0-16.0The [facility] Dublinment on above:Performed By: #### CBC #### [facility] [address] [place] [address] Dr. Manda Calderon #0.02 10e3/ulNormal0.00-0.03The [facility] Dublinment on above:Performed By: #### CBC #### [facility] [address] [place] [address] Dr. Manda Calderon %0.2 %Normal0.0-0.5The [facility] Dublinment on above: Performed By: #### CBC #### [facility] [address] [place] [address] Dr. Manda KasperH #2.5 103/ulNormal1.2-3.8The [facility] on above:Performed By: #### CBC #### [facility] [address] [place] [address] Dr. Manda Bolañosmphocytes/100 WBC (Bld)24.9 %Iqlgwl19.5-60.0The Carl HospitalComment on above:Performed By: #### CBC #### [facility] [address] [address] [address] Manda Richards DIFF REQNONormalThe [facility] HospitalComment on above: Performed By: #### CBC #### [facility] [address] [place] [address] Dr. Manda Cardoso (RBC) [Entitic mass]27.9 gaVjhlbl36.7-34.0The [facility]ckley HospitalComment on above:Performed By: #### CBC #### [facility] [address] [place] [address] Dr. Manda Cardoso (RBC) [Mass/Vol]31.8 g/xYUfnqis84.9-35.2The [facility] HospitalComment on above:Performed By: #### CBC #### [facility] [address] [place] [address] Dr. Manda Cardoso (RBC) [Entitic vol]87.6 vKXxxsfl89.0-99.0The [facility] HospitalComment on above:Performed By: #### CBC #### [facility] [address] [place] [address] Dr. Manda Maciel #0.6 103/ulNormal0.3-0.8The [facility] HospitalComment on above:Performed By: #### CBC #### [facility] [address] [place] [address] Dr. Manda Coteocytes/100 WBC (Bld)6.3 %Normal1.7-12.0The [facility] Comment on above:Performed By: #### CBC #### [facility] [address] [place] [address] Dr. Manda Claudio #6.5 103/ulNormal1.4-6.5The [facility] HospitalComment on above:Performed By: #### CBC #### [facility] [address] [place] [address] Dr. Manda Longutrophils/100 WBC (Bld)65.7 %Nadryw15.0-75.0The [facility] HospitalComment on above:Performed By: #### CBC #### [facility] [address] [place] [address] Dr. Manda YorkPlatelet mean volume (Bld) [Entitic vol]10.1 fLNormal9.5-13.5The [facility] HospitalComment on above:Performed By: #### CBC #### [facility] [address] [place] [address] Dr. Manda YorkPLT304 103/hsWajpjb787-212Njp [facility] HospitalComment on above: Performed By: #### CBC #### [facility] [address] [place] [address] Dr. Manda YorkRBC4.59 106/ulNormal4.20-5.40The [facility] on above:Performed By: #### CBC #### [facility] [address] [place] [address] Dr. Manda YorkWBC9.9 103/ulNormal4.0-11.0The [facility] HospitalCommymichigan medical center sault on above: Performed By: #### CBC #### [facility] [address] [place] [address] Dr. Manda Macdonald 14(COMP METB)on 54-46-0240Rpudpfc [Mass/Vol]3.7 g/dLNormal 3.4-5.0The [facility] on above:Performed By: #### CBC #### [facility] [address] [place] [address] Dr. Manda YorkAlbumin/Globulin [Mass ratio]1.0 {ratio}NormalThe [facility] HospitalCommymichigan medical center sault on above:Performed By: #### CBC #### [facility] [address] [place] [address] Dr. Manda Toney [Catalytic activity/Vol]65 U/CFavdoa87-270Xba [facility] HospitalComment on above:Performed By: #### CBC #### [facility] [address] [place] [address] Dr. Manda Person [Catalytic activity/Vol]35 U/QYbzqxn18-17Lvw [facility] HospitalComment on above:Performed By: #### CBC #### [facility] [address] [address] [address] Manda Gregoryon gap [Moles/Vol]13.0 mmol/LNormalBlanchard Valley Health System Comment on above:Performed By: #### CBC #### [facility] [address] [address] [address] Manda YorkAST [Catalytic activity/Vol]12 U/LCritically wnf05-99Kzy [facility] HospitalComment on above:Performed By: #### CBC #### [facility] [address] [address] [address] Manda YorkBilirubin [Mass/Vol]0.2 mg/dLNormal0.2-1.0[facility] Comment on above:Performed By: #### CBC #### [facility] [address] [address] [address] Manda YorkCalcium [Mass/Vol]8.7 mg/dLNormal8.5-10.1[facility] Comment on above:Performed By: #### CBC #### [facility] [address] [address] [address] Manda YorkChloride [Moles/Vol]104 mmol/TAcjkvu69-812XusBlanchard Valley Health System Comment on above:Performed By: #### CBC #### [facility] [address] [address] [address] Manda YorkCO2 [Moles/Vol]24.9 mmol/HHlobyj71.0-32.0[facility] Comment on above:Performed By: #### CBC #### [facility] [address] [address] [address] Manda YorkCreatinine [Mass/Vol]0.77 mg/dLNormal0.55-1.02The [facility] HospitalComment on above:Performed By: #### CBC #### [facility] [address] [address] [address] Holamn ChangEGFR-AF BOTSWANAN>=60Normal>=60The [facility] HospitalComment on above:Performed By: #### CBC #### [facility] [address] [address] [address] Manda NoonanGFR-NON AF BOTSWANAN>=60Normal>=60The [facility] HospitalComment on above:Performed By: #### CBC #### [facility] [address] [address] [address] Manda YorkGlobulin (S) [Mass/Vol]3.8 g/dLNormOhioHealth Arthur G.H. Bing, MD, Cancer CenterComment on above:Performed By: #### CBC #### [facility] [address] [address] [address] Manda YorkGlucose [Mass/Vol]110 mg/dLCritically nptx32-835Nos [facility] HospitalComment on above:Performed By: #### CBC #### [facility] [address] [address] [address] Manda YorkPotassium [Moles/Vol]3.9 mmol/LNormal3.5-5.1The [facility] Comment on above:Performed By: #### CBC #### [facility] [address] [address] [address] Manda YorkProtein [Mass/Vol]7.5 g/dLNormal6.4-8.2The [facility] Comment on above:Performed By: #### CBC #### [facility] [address] [address] [address] Manda YorkSodium [Moles/Vol]138 mmol/WXhduwu798-080Phn [facility] Comment on above:Performed By: #### CBC #### [facility] [address] [address] [address] Manda YorkUrea nitrogen [Mass/Vol]17.0 mg/dLNormal7.0-18.0The [facility] HospitalComment on above:Performed By: #### CBC #### [facility] [address] [address] [address] Manda YorkUrea nitrogen/Creatinine [Mass ratio]22.1 mg/mgNormalThe [facility] HospitalComment on above:Performed By: #### CBC #### [facility] [address] [place] [address] Dr. Manda Mckeon RATE WESTERGRENon 13-59-3724CYX RATE45 mm/hrCritically high <=20The [facility] Dublinment on above:Performed By: #### FT4 #### [facility] [address] [place] [address] Dr. Manda Pickard EIA W/REFLEX 5 BIOMARKERSon [id number] DirectPositive AbnormalNegativeThe [facility] HospitalComment on above:Performed By: #### CBC #### [facility] [address] [place] [address] Dr. Manda Meza-DNA (DS) Ab Qn10 IU/mLCritically high0-9The [facility] on above:Result Comment: Negative <5 Equivocal 5 - 9 Positive >9Performed By: #### CBC #### [facility] [address] [place] [address] Dr. Manda Chowdary Antibodies<0.2Yvfjjq9.0-0.9The [facility] HospitalComment on above:Performed By: #### CBC #### [facility] [address] [place] [address] Dr. Manda Lux BELOW:CommentNormalThe [facility] Dublinment on above: Result Comment: Autoantibody Disease Association [...] Sm (anti-Schneider) SLE 15 - 30% --------- PATIENT REGISTRATION MANAGER Mixed Connective Tissue Disease 95% (U1 nRNP, SLE 30 - 50% anti-ribonucleoprotein) Polymyositis and/or Dermatomyositis 20% --------- Scl-70 (antiDNA Scleroderma (diffuse) 20 - 35% topoisomerase) Crest 13% --------- Felicita-1 Polymyositis and/or Dermatomyositis 20 - 40% --------- Centromere B Scleroderma - Crest variant 80%Performed By: #### CBC #### [facility] [address] [place] [address] Dr. Manda Harmon Anti-SS-A<0.4Awzndq0.0-0.9The [facility] Dublinment on above:Performed By: #### CBC #### [facility] [address] [place] [address] Dr. Manda Harmon Anti-SS-B<0.0Qefahp1.0-0.9[facility] SystemComment on above:Performed By: #### CBC #### [facility] [address] [place] [address] Dr. Manda Lloyd Antibodies<0.6Qnrdkz2.0-0.9[facility] SystemComment on above:Performed By: #### CBC #### [facility] [address] [place] [address] Dr. Manda Buenrostro PLASMA PCRon [id number] Quant DNA PCR (Plasma)Negative NormalNegativeProvidence Hospital on above:Result Comment: No CMV DNA detected. The quantitative range of this assay is 200 to 1 million IU/mL.Performed By: #### CMVPL #### [facility] [address] [place] [address] Dr. Manda Yorklog10 CMV Qn DNA PlUPTCALNoSelect Medical Specialty Hospital - CincinnatiComment on above:Result Comment: Unable to calculate result since non-numeric result obtained for component test.Performed By: #### CMVPL #### [facility] [address] [place] [address] Dr. Manda NavarreteV AB IGMon [id number] (CMV) Ab, IgM35.5 AU/mL Critically high0.0-29.9The [facility] HospitalComment on above:Result Comment: Negative <30.0 Equivocal 30.0 - 34.9 Positive >34.9 A positive result is generally indicative of acute infection, reactivation or persistent IgM production.Performed By: #### LUIGI LAWLER #### [facility] [address] [place] [address] Dr. Manda YorkCMV AB, IGGon [id number] (CMV) Ab, IgG6.30 U/mL Critically high0.00-0.59The [facility] HospitalComment on above:Result Comment: Negative <0.60 Equivocal 0.60 - 0.69 Positive >0.69Performed By: #### LUIGI LAWLER #### [facility] [address] [place] [address] Dr. Manda Bruce AUTO DIFFon [id number] #0.1 103/ulNormal0.0-0.1The [facility] HospitalComment on above:Performed By: #### CBC #### [facility] [address] [place] [address] Dr. Manda Stroudsophils/100 WBC (Bld)0.7 %Normal0.2-2.0[facility] Comment on above:Performed By: #### CBC #### [facility] [address] [place] [address] Dr. Manda Shafer #0.2 103/ulNormal0.0-0.7The [facility] HospitalComment on above: Performed By: #### CBC #### [facility] [address] [place] [address] Dr. Manda Noonanosinophils/100 WBC (Bld)2.0 %Normal0.9-7.0The [facility] Comment on above:Performed By: #### CBC #### [facility] [address] [place] [address] Dr. Manda Noonanrythrocyte distribution width (RBC) [Ratio]14.4 %Cbvedw76.0-15.0 The [facility] HospitalComment on above:Performed By: #### CBC #### [facility] [address] [place] [address] Dr. Manda YorkHematocrit (Bld) [Volume fraction]37.2 %Hrqugz29.0-48.0The [facility] HospitalComment on above:Performed By: #### CBC #### [facility] [address] [place] [address] Dr. Manda YorkHemoglobin (Bld) [Mass/Vol]12.3 g/uOMwlncw13.0-16.0The [facility] HospitalComment on above:Performed By: #### CBC #### [facility] [address] [place] [address] Dr. Manda Calderon #0.02 10e3/ulNormal0.00-0.03The [facility] HospitalComment on above:Performed By: #### CBC #### [facility] [address] [place] [address] Dr. Manda Calderon %0.2 %Normal0.0-0.5The [facility] HospitalComment on above: Performed By: #### CBC #### [facility] [address] [place] [address] Dr. Manda Laguna #2.1 103/ulNormal1.2-3.8The Van [facility]Comm[facility] center sault on above:Performed By: #### CBC #### [facility] [address] [place] [address] Dr. Manda Bolañosmphocytes/100 WBC (Bld)26.4 %Xchcet51.5-60.0The [facility] HospitalComment on above:Performed By: #### CBC #### [facility] [address] [place] [address] Dr. Manda YorkMANUAL DIFF REQNONormalThe [facility] HospitalComment on above: Performed By: #### CBC #### [facility] [address] [place] [address] Dr. Manda Gil (RBC) [Entitic mass]29.2 ipDrapmd14.7-34.0The [facility] HospitalComment on above:Performed By: #### CBC #### [facility] [address] [address] [address] Manda Cardoso (RBC) [Mass/Vol]33.1 g/hVSvqsqj50.9-35.2The [facility] HospitalComment on above:Performed By: #### CBC #### [facility] [address] [place] [address] Dr. Manda CardosoV (RBC) [Entitic vol]88.4 gLTbcjdy38.0-99.0The [facility] HospitalComment on above:Performed By: #### CBC #### [facility] [address] [place] [address] Dr. Manda Maciel #0.5 103/ulNormal0.3-0.8The [facility] HospitalComment on above:Performed By: #### CBC #### [facility] [address] [place] [address] Dr. Manda Coteocytes/100 WBC (Bld)6.7 %Normal1.7-12.0The [facility] Comment on above:Performed By: #### CBC #### [facility] [address] [place] [address] Dr. Manda Claudio #5.2 103/ulNormal1.4-6.5The [facility] HospitalComment on above:Performed By: #### CBC #### [facility] [address] [place] [address] Dr. Manda Longutrophils/100 WBC (Bld)64.0 %Dxhwmx38.0-75.0The [facility] HospitalComment on above:Performed By: #### CBC #### [facility] [address] [place] [address] Dr. Manda Ferreiralet mean volume (Bld) [Entitic vol]10.5 fLNormal9.5-13.5The [facility] HospitalComment on above:Performed By: #### CBC #### [facility] [address] [place] [address] Dr. Manda YorkPLT265 103/qzAjzzfu324-837Nxk [facility] HospitalComment on above: Performed By: #### CBC #### [facility] [address] [address] [address] Manda YorkRBC4.21 106/ulNormal4.20-5.40The [facility] HospitalComment on above:Performed By: #### CBC #### [facility] [address] [address] [address] Manda YorkWBC8.1 103/ulNormal4.0-11.0The [facility] HospitalComment on above: Performed By: #### CBC #### [facility] [address] [address] [address] Manda Lopez 90-12-6255LGJ [Mass/Vol]mg/LNormal<=1.0The [facility]Commym[facility] sault on above:Performed By: #### FT4 #### [facility] [address] [place] [address] Dr. Manda Mckeon RATE WESTERGRENon 75-50-8451RON RATE34 mm/hrCritically high <=20The [facility] HospitalCommym[facility] sault on above:Performed By: #### CBC #### [facility] [address] [place] [address] Dr. Manda YorkCHLORIDE (POC)Ordered By: Jonas Black on 47-58-9934Botnflyr [Moles/Vol]106 mmol/L98 - 107 mmol/LMercy Health Work Phone: catheterization and angiography procedure details panelOrdered By: Jonas Black on 29-58-4647Znocrtc Diagnostic Report Demographics Patient TERA Torres Date of Study 10/07/2020 Name Dateof 1980 Gender Female Age 40 year(s) Race Room [id number]^GINO Height: 67 inch, 170.18 cm Number Corporate [id number] Weight: 234 pounds, 106.1 kg ID # Patient [id number] BSA:2.16 m^2 BMI: 36.65 kg/m^2 Acct # MR # [id number] Performing Jonas Black Physician Referring # Physician [...] Right coronary angiography. Contrast Material: - Isovue 29499 ml Fluoroscopy Time: Diagnostic: 2:12 minutes. Total: [...] assessed as CCS II according to the British clinical classification. Hemodynamics Condition: Baseline Room Air [...] -------+---------+---------+---------+ +---------+ + !Aortic (more content not included)...[employer]™ Phone: ejennifer, [facility] Incoming Cardio Results From [facility] - 10/07/2020 10:37 AM EDT Cardiac Diagnostic Report Demographics Patient TERA Torres Date of Study 10/07/2020 Name Date of 1980 Gender Female Age 40 year(s) Race Room [id number]^LEYDI^JONAS Height: 67 inch, 170.18 cm Number Corporate [id number] Weight: 234 pounds, 106.1 kg ID # Patient [id number] BSA: 2.16 m^2 BMI: 36.65 kg/m^2 Acct # MR # [id number] Performing Jonas Black Physician Referring # Physician [...] Right coronary angiography. Contrast Material: - Isovue 28623 ml Fluoroscopy Time: Diagnostic: 2:12 minutes. Total: [...] assessed as CCS II according to the British clinical classification. Hemodynamics Condition: Baseline Room Air [...] +---------+---------+---------+ +---------+ + Shunts Oxygen Values O2 Tkvloqwt148.4O2 Srismhykcnr200.52 [employer]™ Phone: [employer]™ Phone: [employer]™ Phone: creatinine W/GFR Point of CareOrdered By: Jonas Black on 56-87-1930Zrwuykzddb [Mass/Vol]0.64 mg/dL0.51 - 1.19 mg/dLAvocado™ Phone: GFR Non->60>60 mL/minAvocado™ Phone: GFR/1.73 sq M.predicted MDRD (S/P/Bld) [Vol rate/Area] mL/min/{1.73_m2}>60 mL/minAvocado™ Phone: GFR/1.73 sq M.predicted MDRD (S/P/Bld) [Vol rate/Area] [employer]™ Phone: comment on above:Average GFR for 40-49 years old: 99 mL/min/1.73sq m Chronic Kidney Disease: <60 mL/min/1.73sq m Kidney failure: <15 mL/min/1.73sq m eGFR calculated using average adult body mass. Additional eGFR calculator available at: http://www.[employer]/multiple_crcl_2012.htm Hemoglobin and hematocrit, bloodOrdered By: Jonas Black on 70-12-6033Mlucxgkbrj (Bld) [Volume fraction]41 %36 - 46 %[employer]™ Phone: Hemoglobin (Bld) [Mass/Vol]14.0 g/dL12.0 - 16.0 g/dL [employer]™ Phone: No Panel InformationOrdered By: Jonas Black on 07-69-9385[facility] Work Phone: pOCT GlucoseOrdered By: Jonas Black on 10-07-2020 Glucose [Mass/Vol]98 mg/dL74 - 100 mg/dLSelect Medical Trihealth Rehabilitation HospitalHeart Genetics Phone: pOCT urine pregnancyOrdered By: Jonas Black on 74-92-0093Nptp HCG ( test) Ql (U)NegativeNEGATIVESelect Medical Trihealth Rehabilitation HospitalHeart Genetics Phone: comment on above:Specimens with hCG levels near the threshold of the test (25 mIU/mL) may give a negative or indeterminate result. In such cases, another test should be performed with a new specimen in 48-72 hours. If early is suspected clinically in this setting, correlation with quantitative serum b-hCG level is suggested. [employer]™ Phone: pOTASSIUM (POC)Ordered By: Jonas Black on 10-07-2020 Potassium [Moles/Vol]3.8 mmol/L3.5 - 4.5 mmol/LMcoshocton regional medical centery [address].com Phone: platelet Counton 34-22-8048Feqxcjbnw (Bld) [#/Vol]299 10*3/xWDkddqa699-507BqwdfWright-Patterson Medical CenterComment on above:Performed By: #### PLT #### [facility] [place], [place] [id number] Assistant Analyst: Rick Serrano MDPlatelet countOrdered By: Jonas Black on 14-13-1747Eswuwqtsg (Bld) [#/Vol]299 10*3/uLMercy Health Work Phone: [facility] Work Phone: sODIUM (POC)Ordered By: Jonas Black on 10-07-2020 Sodium [Moles/Vol]141 mmol/L138 - 146 mmol/LMercy Health Work Phone: coding Summary.on 38-39-9044Pidnso Summary.CODING DATE: 01/12/2019 FINAL [facility] STATUS: Home (Routine DC) PAYOR: Medicaid [...] By: Luz Judd Date Saved: 01/12/2019 10:25 amNMercy Health Willard HospitalCoding Summary. CODING DATE: 01/12/2019 FINAL [facility] STATUS: Home (Routine DC) PAYOR: Medicaid [...] Luz Judd Revised Date Saved: 01/12/2019 10:25 amNMercy Health Willard HospitalXR Chest 2 Viewson [id number] Chest 2 ViewsExam Date/Time: 01/11/2019 18:05 EDT [...] Micheal Valenzuela M.D. Transcribed by: BILL Technologist: DAYANARAMercy Health Willard HospitalAuto Diffon 43-46-3913Vsieaklni/100 WBC (Bld)0.8 %Normal0.0-2.0[facility] Comment on above:Order Comment: Order Added by Discern Expert.Performed By: #### [id number], 7125587, 4498297, 9818460, 66510428, 1220617, 2857714, 5946142, 6900705, 56193463, 8359412 #### [facility] [address], [place] [address]Efqtyejyc/Leukocytes Auto (Bld) [Pure # fraction]0.1 E9/LNormal 0.0-0.2Fisher [facility] Pratt HospitalComment on above:Order Comment: Order Added by Discern Expert.Performed By: #### [id number], 6845250, 2104018, 3897454, 42723383, 0374214, 4363358, 7527929, 7774580, 96051682, 6299443 #### [facility] [address] [place] [address]Yvcornmzxqh/100 WBC (Bld)1.9 %Normal0.0-8.0[facility] HospitalComment on above:Order Comment: Order Added by Discern Expert.Performed By: #### [id number], 2721316, 7829828, 7116584, 92765221, 4646768, 0523217, 1506121, 8676193, 67866816, 8176071 #### [facility] [address] [place] [address]Venvibdrmbf/Leukocytes Auto (Bld) [Pure # fraction]0.1 E9/L Normal0.0-0.5FMercy Health Defiance HospitalComment on above:Order Comment: Order Added by Discern Expert.Performed By: #### 82914637, 7739230, 8349691, 5398573, 60065376, 9057246, 1212394, 3169788, 3720734, 01519089, 7396692 #### [facility] [address] [place] [address]Pbdjfuezrlh/100 WBC (Bld)28.0 %Yydfhq54.0-50.0[facility] HospitalComment on above:Order Comment: Order Added by Discern Expert. Performed By: #### [id number], 2198636, 7535156, 6625202, 68881795, 6100565, 7586182, 1312694, 9015424, 77052232, 9127637 #### [facility] [address] [place] [address]Edbfgluwxzr/Leukocytes Auto (Bld) [Pure # fraction]2.2 E9/L Normal1.0-4.0[facility] HospitalComment on above:Order Comment: Order Added by Discern Expert.Performed By: #### 83508971, 7944517, 4708489, 2049437, 02922812, 3753319, 7695552, 7139933, 6831643, 17127276, 6971271 #### [facility] [address], [place] [address]Ppdxitokp/100 WBC (Bld)7.0 %Normal4.0-14.0[facility] HospitalComment on above:Order Comment: Order Added by Discern Expert.Performed By: #### 17614157, 0981943, 9895874, 9042675, 42134456, 0117780, 9176067, 2218435, 3543210, 47287933, 0849635 #### [facility] [address], [place] [address]Pysbqwwee/Leukocytes Auto (Bld) [Pure # fraction]0.6 E9/LNormal 0.2-1.0[facility] HospitalComment on above:Order Comment: Order Added by Discern Expert.Performed By: #### 21792226, 0730267, 0337511, 1572768, 57780762, 2077148, 2412551, 5268204, 6738275, 19529119, 8183855 #### [facility] [address] [place] [address]Vgsjgeillxi/100 WBC (Bld)62.3 %Dnjxxa13.0-75.0[facility] HospitalComment on above:Order Comment: Order Added by Discern Expert. Performed By: #### 73083170, 5451153, 8887593, 2876253, 77765276, 0625838, 5391342, 4460503, 3527071, 56970099, 6487214 #### [facility] [address], [place] [address]Cplhkuogmvc/Leukocytes Auto (Bld) [Pure # fraction]4.9 E9/L Normal2.0-7.5FMercy Health Defiance HospitalComment on above:Order Comment: Order Added by Discern Expert.Performed By: #### 62199663, 6375830, 9984529, 9652546, 41697828, 9765916, 6483472, 8649116, 6928913, 35466251, 0258412 #### [facility] [address], [place] [address]DPDpk 85-81-5184Jleunlnngi [Mass/Vol]0.7 mg/dLNormal0.5-1.3 [facility] HospitalComment on above:Performed By: #### 81950662, 4863683, 9494283, 6869207, 91233940, 2522109, 9846331, 4347216, 6094903, 92524202, 3111472 #### [facility] [address], [place] [address]Ggxk nitrogen [Mass/Vol]11 mg/dLNormal5-21[facility] HospitalComment on above:Performed By: #### 09358422, 8294330, 6682333, 3795545, 54770432, 4778526, 6819129, 8708598, 8503404, 18117150, 3168818 #### [facility] [address], [place] [address]Gxwm nitrogen/Creatinine [Mass ratio]16 No ExjwyDljktj74-79 [facility] HospitalComment on above:Performed By: #### 36739373, 4389795, 0778862, 2295907, 48955954, 5290066, 5997673, 6436562, 2263131, 04254579, 4884581 #### [facility] [address], [place] [address]Lkzcw gap [Moles/Vol]14 mmol/LNormal6-16[facility] HospitalComment on above:Performed By: #### 64202867, 7972338, 7558244, 2195158, 41486262, 7002104, 3559736, 4812711, 2431036, 92430791, 2328958 #### [facility] [address], [place] [address]Heiohiw [Mass/Vol]8.9 mg/dLNormal8.9-11.1FMercy Health Defiance HospitalComment on above:Performed By: #### 44237007, 0110791, 8892441, 2145291, 39132732, 2819240, 1884513, 0223890, 8682744, 89247749, 0344456 #### [facility] [address], [place] [address]Uceftetn [Moles/Vol]107 mmol/WUrzrxe237-013HaonaaMedina HospitalComment on above:Performed By: #### 37059793, 8953123, 4473753, 2970527, 11808705, 3411293, 5496872, 2315294, 8375388, 16564750, 6851106 #### [facility] [address], [place] [address]IB4 [Moles/Vol]22 mmol/PEjrpkf85-85EnuevxMedina Hospital Comment on above:Performed By: #### 14604054, 4086763, 5159999, 6806822, 03471507, 3557242, 6547731, 1702306, 6764282, 64045195, 9928673 #### [facility] [address], [place] [address]Ahfftgb [Mass/Vol]122 mg/jQRskcgd26-899CctzrmMedina HospitalComment on above:Result Comment: If this glucose result represents a fasting glucose, interpretation should refer tothe following reference range: 55-99 mg/dLPerformed By: #### 65817620, 4558286, 3944071, 2150031, 83890945, 1476790, 6100294, 5181540, 0895275, 65353963, 8392602 #### [facility] [address], [place] [address]Zxqozzkrv [Moles/Vol]3.8 mmol/LNormal3.5-5.3FMercy Health Defiance HospitalComment on above:Performed By: #### 06526585, 5171893, 1144031, 7228273, 60455060, 9462179, 2866131, 8420557, 8198724, 06951586, 5214817 #### [facility] [address], [place] [address]Eiavgx [Moles/Vol]139 mmol/QRgtyto460-745PbdsqoMedina HospitalComment on above:Performed By: #### 13111288, 3030111, 2195084, 2477924, 78900688, 9977740, 0521473, 8106215, 3883319, 24128923, 5542136 #### [facility] [address], [place] [address]XKI w/ Auto Diffon 09-99-5539Aoxwrnzayjb distribution width (RBC) [Ratio]14.0 %Gqpxwy42.9-14.2FMercy Health Defiance HospitalComment on above: Performed By: #### 12025538, 8316623, 3554396, 1325868, 06117758, 3211819, 8786978, 5887063, 8701837, 74080997, 8081188 #### [facility] [address], [place] [address]Vkxkzxvjzb (Bld) [Volume fraction]39.9 %Prsewq35.0-46.0[facility] HospitalComment on above:Performed By: #### 07443890, 6287090, 0946580, 1313987, 47808450, 2817840, 2713369, 6327837, 3357324, 62809743, 9816694 #### [facility] [address], [place] [address]Tegnermrpt (Bld) [Mass/Vol]13.5 g/qGGfzamv83.0-16.0[facility] HospitalComment on above:Performed By: #### 37586373, 0542412, 4806170, 3515868, 02711235, 8299497, 0056463, 3060921, 8638909, 16366883, 5079766 #### [facility] [address], [place] [address]NHZ (RBC) [Entitic mass]29.4 onJskoaa78.0-34.0[facility] HospitalComment on above:Performed By: #### 26397310, 5450523, 1608009, 2285750, 80858311, 1734078, 3117305, 2380105, 2341710, 08191400, 1532180 #### [facility] [address], [place] [address]YPFO (RBC) [Mass/Vol]33.7 g/dTNoiobc36.3-35.7FMercy Health Defiance HospitalComment on above:Performed By: #### 37690931, 0888224, 1969667, 5004829, 88796799, 8716967, 7629907, 9464374, 1290853, 95472740, 8547106 #### [facility] [address], [place] [address]NAY (RBC) [Entitic vol]87.4 zNFyuoah58.0-100.0[facility] HospitalComment on above:Performed By: #### 83660894, 2135312, 5882975, 8854555, 34925782, 8816916, 0252295, 1532555, 2079125, 47117136, 3128379 #### [facility] [address], [place] [address]Megpsrmq mean volume (Bld) [Entitic vol]8.5 fLNormal6.4-10.8 [facility] HospitalComment on above:Performed By: #### 91782017, 7322726, 6002982, 9148649, 78962254, 7895240, 7750972, 7259133, 7954167, 59626147, 5624228 #### [facility] [address], [place] [address]Aesalqjcj (Bld) [#/Vol]244.0 E9/PUpywbq117.0-500.0[facility] HospitalComment on above:Performed By: #### 48096596, 9684222, 6474713, 5301082, 04278142, 1746678, 6580440, 1856078, 9863433, 69408284, 0620715 #### [facility] [address], [place] [address]NAR (Bld) [#/Vol]4.6 E12/LNormal4.3-5.9[facility] HospitalComment on above:Performed By: #### 17091691, 9106648, 7623527, 8644904, 36216701, 7521016, 3104174, 3502452, 2249127, 21938974, 9132767 #### [facility] [address], [place] [address]LIO corrected for nucl RBC Auto (Bld) [#/Vol]7.9 E9/LNormal 4.0-11.0[facility] HospitalComment on above:Performed By: #### 17184245, 9159492, 4409281, 8803640, 26371323, 3897075, 9385138, 6377858, 9493484, 78185402, 9060787 #### [facility] [address], [place] [address]C-Kmuhrhg 41-73-0608Audcyg D-dimer FEU (PPP) [Mass/Vol]265 ng/lDRpcnbk067-397MwmycyMedina HospitalComment on above:Result Comment: This D-Dimer assay [...] skin infections Liver cirrhosis PregnancyPerformed By: #### 00082752, 3896738, 2738878, 4649731, 06403304, 7202621, 5033016, 9715111, 2221926, 07651481, 6807058 #### [facility] [address], [place] [address]YD Clinical Summaryon [id number] Clinical Summary [address] [address] ED Clinical Summary Person Information Name: ARIADNA HALEY [facility] Age: 38 Years : 1980 12:00 AM Sex: Female Language: Bermudian PCP: Charles Nicole DO Marital Status: Single Phone: [phone] Visit Id: Visit Reason: Chest pain; CHEST [...] 6:42 PM 01/11/2019 6:42 PM ADDRESS: [address] [place] [id number] PHYS DOC NOTES: MEDICAL INFORMATION: Prescriptions Given: PATIENT EDUCATION INFORMATION: Instructions: Smoking Cessation; Chest Pain (Nonspecific) Follow up: With: Address: When: [place] [address] Business (1) Within 2 to 3 days Comments: Return to ED if symptoms worsen DIAGNOSIS: 1:Chest painNormalFisher Platte Medical CenterED Note-Physicianon 43-03-7880WL Note-PhysicianBasic Information Time Seen: Orin Browne DO [...] Charles Nicole Within 2 to 3 days [address] [place] [address]- Business (1) Additional Instructions: Return [...] Lymph Auto: 28 % (01/11/19 16:46:00 EDT) Gladwin Auto: 7 % (01/11/19 16:46:00 EDT) Eos Auto: 1.9 % (01/11/19 16:46:00 EDT) Basophil Auto: 0.8 % (01/11/19 16:46:00 EDT) Neutro Absolute: 4.9 E9/L (01/11/19 16:46:00 EDT) Lymph Absolute: 2.2 E9/L (01/11/19 16:46:00 EDT) Gladwin Absolute: 0.6 E9/L (01/11/19 16:46:00 EDT) Eos [...] Results EC01/11/19: SINUS RHYTHM RATE 84, NORMAL CT AND QRS, NO ST ELEVATION OR DEPRSSION, NORMAL AXIS, NORMAL QTC NORMAL ECG Signed By: Orin Browne DO 01/11/2019 15:54:18[facility] Comment on above:Result Comment: Electronically Signed By: Orin Browne DO\.br\Date and Time Signed: 01/11/19 18:36 EDTED Patient Education Noteon 82-78-2387RF Patient Education NoteFamily Medicine Smoking Cessation Quitting [...] and skin patches. Some may be available dsvv-ghe-mcnlnsa and others require a prescription. ? Antidepressant [...] Document Reviewed: 08/18/2012 ExitCare? Patient Information ?2014 [employer]. This information is not intended to replace [...] Document Reviewed: 12/13/2008 ExitCare? Patient Information ?2014 [employer], [employer]. This information is not intended to replace advice given to you by your health care provider. Make sure you discuss any questions you have with yourhealth care provider.[facility] Patient Summaryon [id number] Patient Summary [address] [address] Patient Discharge Instructions Person Information Name: ARIADNA HALEY Age: 38 Years Arrival Date: 01/11/2019 3:44 PM Discharge Diagnosis: 1:Chest pain Primary Care Physician: Charles Nicole DO Provider Information Primary Provider: Orin Browne DO Advanced Sales Floor Team Leader:None The exam and treatment you received in the Emergency Department were for an urgent problem and are not intended as complete care. It is important that you follow up with a doctor, nurse practitioner,or physician?s lead assistant manager for ongoing care. If your symptoms become worse or you do not improve as expected and you are unable to reach your usual health care provider, you should return to the Emergency Department. We are available 24 hours a day. ARIADNA HALEY has been given the following list of patient education materials, prescriptions and follow-up instructions: Follow-up Instructions: With: Address: When: [place] [address] Business (1) Within 2 to 3 days [...] opioids can be used to help relieve zuiicuwi-ke-sijquh pain and are often prescribed following a [...] your community drug take- back program or [employer] mail-back program, or flush them down the toilet, following guidance from the Food and Drug Administration (www.fda.gov/Drugs/ResourcesForYou). ? Visit www.cdc.gov/drugoverdose to learn about the risks of opioids abuse and overdose. ? If you believe you may be struggling with addiction, tell your health personal care home administrator and ask for guidance or call SAMHSA?S National Helpline at 3-015-371-JDAW. v Source: US Department of Health and Human Services/Center for Disease Control & Prevention [facility] Medications Given: Medication Dose Route No medications found. Medication Information: Medications to Continue with No Changes Other Medications metformin (metformin 500 mg ER Tab) 250 Milligram By Mouth 2 times a day. Comment: Pharmacy Information: Thank you for choosing [facility] Patient Education Materials: Smoking Cessation Quitting [...] and skin patches. Some may be available xvci-ggl-kmaivoo and others require a prescription. ? Antidepressant [...] Document Reviewed: 08/18/2012 ExitCare? Patient Information ?2014 [employer] [facility]. This information is not intended to [...] Document Reviewed: 12/13/2008 ExitCare? Patient Information ?2015 [employer]. This information is not intended to replace advice given to you by your health care provider. Make sure you discuss any questions you have with yourhealth care provider. TERA Dorantes NICOLE B , have received the following patient education materials/instructions and have verbalized understanding: Patient Education Materials: Smoking Cessation; Chest Pain (Nonspecific) Follow-up Instructions: With: Address: When: Charles Nicole [address] [place] [address] [place] [address] Business (1) Within 2 to 3 days Comments: Return to ED if symptoms worsen Prescriptions: Patient Signature Date Clinician/Nurse Signature Date 01/11/19 18:42:28NormalMedina HospitalProgress Note-Nurseon 53-76-7028Bzackzpu Note-NursePt explained discharge instructions and voiced understanding. Pt sts she will follow up with her PCP and denies any furthe questions at this time.NormalMedina HospitalTroponin 0 Hr.on 80-55-1966Shmutqgn I.cardiac [Mass/Vol]ng/mLNormal<=0.03[facility] HospitalComment on above:Result Comment: New Troponin Assay 10/05/13 KRISHNA PA Cutoff value > or = 0.03 ng/mL in conjunction with clinical conditions of myocardial infarction. (www.escardio.org/guidelines)Performed By: #### 30957384, 3660835, 4615799, 4149553, 01546628, 6727105, 5435361, 7137152, 3589763, 60070969, 7013633 #### [facility] [address] [place] [address]bDCKqy 00-51-9757MRS/1.73 sq M predicted among blacks MDRD (S/P/Bld) [Vol rate/Area]mL/min/{1.73_m2}Normal>=59[facility] Comment on above:Order Comment: Order added by Discern Expert.Result Comment: eGFR is race adjusted. AA=.Performed By: #### 94039426, 2585330, 6319090, 0938622, 59161490, 3205790, 4555220, 4195578, 2075207, 11345581, 4366968 #### [facility] [address], [place] [address]XSI/1.73 sq M predicted among non-blacks MDRD (S/P/Bld) [Vol rate/Area]mL/min/{1.73_m2}Normal>=59[facility] HospitalComment on above: Order Comment: Order added by Discern Expert.Result Comment: Chronic kidney disease could be indicated at eGFR's of less than 60 mL/min/1.73m2. Kidney failure is indicated at less than 15 mL/min/1.73m2.Performed By: #### 19153627, 3535969, 6567520, 0913152, 80891503, 0401074, 7853195, 8293404, 2716950, 69650677, 8590878 #### [facility] [address], [place] [address]WOARG, LUMBOSACRAL CMPLT(BENDING)on [id number], LUMBOSACRAL CMPLT(BENDING) Patient Name: ARIADNA HALEY STUDY: SPINE, LUMBOSACRAL; CMPLT(BENDING); 12/05/2018 1:47 pm INDICATION: LUMBAR XR. COMPARISON: None. ACCESSION NUMBER(S): [id number] ORDERING CLINICIAN: KADE EARLY FINDINGS: No lumbar spine fracture. Scattered small endplate osteophytes. Vertebral body and disc space heights are are maintained. 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 No spondylolisthesis. No instability on flexion or extension. IMPRESSION: Degenerative changes of the lumbar spine without instability. Electronically signed by: EARNESTINE MANUEL MDThe Children's Hospital Foundation Coding Summary.on [id number] Summary.CODING DATE: 09/15/2018 FINAL [facility] DSCH STATUS: Home (Routine DC) PAYOR: [...] By: Luz Judd Date Saved: 09/15/2018 07:15 amNormalMedina HospitalAuto Diffon 66-02-5357Xxunglqji/100 WBC (Bld)0.6 %Normal0.0-2.0[facility] Comment on above:Order Comment: Order Added by Discern Expert.Performed By: #### [id number], 1249145, 1116866, 9569039, 74596260, 3828938, 6027529, 7314772, 4400994, 68483403, 8119652 #### [facility] [address], [place] [address]Drisgxwau/Leukocytes Auto (Bld) [Pure # fraction]0.1 E9/LNormal 0.0-0.2FMercy Health Defiance HospitalComment on above:Order Comment: Order Added by Discern Expert.Performed By: #### 69740464, 4225004, 0151203, 5902050, 56263978, 0263625, 6638524, 3780658, 3707273, 12602614, 2375020 #### [facility] [address], [place] [address]Vtplimpntbi/100 WBC (Bld)2.2 %Normal0.0-8.0[facility] HospitalComment on above:Order Comment: Order Added by Discern Expert.Performed By: #### 46856978, 4899972, 0580924, 7627114, 93170733, 9732900, 7817637, 3526030, 8300009, 04138442, 1851370 #### [facility] [address], [place] [address]Zgufralgxio/Leukocytes Auto (Bld) [Pure # fraction]0.2 E9/L Normal0.0-0.5FMercy Health Defiance HospitalComment on above:Order Comment: Order Added by Discern Expert.Performed By: #### 00724196, 3137853, 0678988, 5933131, 36371763, 8328060, 5282819, 2089933, 9380708, 33300087, 1340714 #### [facility] [address], [place] [address]Zupmojlwpmm/100 WBC (Bld)30.6 %Ntptnu36.0-50.0[facility] HospitalComment on above:Order Comment: Order Added by Discern Expert. Performed By: #### 85336711, 1108607, 0589489, 4176360, 00845127, 8325994, 2624522, 0953994, 7110316, 23012512, 8465107 #### [facility] [address], [place] [address]Otcglzuvflb/Leukocytes Auto (Bld) [Pure # fraction]3.0 E9/L Normal1.0-4.0[facility] HospitalComment on above:Order Comment: Order Added by Discern Expert.Performed By: #### 27241178, 9084306, 1864503, 8565962, 16899985, 8470912, 8588480, 4147834, 9404751, 10454550, 6028247 #### [facility] [address], [place] [address]Wiuwpmcjc/100 WBC (Bld)7.2 %Normal4.0-14.0[facility] HospitalComment on above:Order Comment: Order Added by Discern Expert.Performed By: #### 41413090, 1977038, 0225662, 5989182, 28533452, 2710037, 9551462, 2187800, 6452641, 76162206, 8864002 #### [facility] [address], [place] [address]Tebzubwdm/Leukocytes Auto (Bld) [Pure # fraction]0.7 E9/LNormal 0.2-1.0[facility] HospitalComment on above:Order Comment: Order Added by Discern Expert.Performed By: #### 88310609, 0377247, 4437475, 9841569, 44290925, 6572947, 7943021, 4727369, 2288134, 25315410, 2659438 #### [facility] [address], [place] [address]Zpcxzbjsmqw/100 WBC (Bld)59.4 %Tdnhcm94.0-75.0[facility] HospitalComment on above:Order Comment: Order Added by Discern Expert. Performed By: #### 20184700, 0141328, 5517103, 6332040, 25990264, 3388198, 7249999, 2405798, 8743487, 24714571, 6498455 #### [facility] [address], [place] [address]Btnwxupqeby/Leukocytes Auto (Bld) [Pure # fraction]5.9 E9/L Normal2.0-7.5FMercy Health Defiance HospitalComment on above:Order Comment: Order Added by Discern Expert.Performed By: #### 05526068, 2099203, 3987205, 6509265, 12074726, 2370125, 0198805, 0224779, 5192360, 39987198, 0226821 #### [facility] [address], [place] [address]AZXfh 71-88-4511Yxekoqcvoi [Mass/Vol]0.6 mg/dLNormal0.5-1.3 [facility] HospitalComment on above:Performed By: #### 57667618, 3382753, 1064129, 7505084, 80114001, 6165825, 2206355, 1228517, 7733213, 79690618, 1621168 #### [facility] [address], [place] [address]Gdde nitrogen [Mass/Vol]15 mg/dLNormal5-21Medina HospitalComment on above:Performed By: #### 27386518, 3740424, 6179692, 6294580, 97018533, 3058802, 0967378, 9870953, 3372959, 00207581, 4263367 #### [facility] [address], [place] [address]Ackj nitrogen/Creatinine [Mass ratio]25 No QmrpcEkre96-28BdkeglMedina HospitalComment on above:Performed By: #### 63989774, 5714260, 8583350, 6486886, 01211006, 7446826, 8847354, 6415720, 3518780, 27118323, 2378717 #### [facility] [address], [place] [address]Zankt gap [Moles/Vol]13 mmol/LNormal6-16[facility] HospitalComment on above:Performed By: #### 61941639, 5717832, 4538327, 9381296, 55850415, 2836771, 5330235, 5920635, 7335716, 51055976, 3280355 #### [facility] [address], [place] [address]Hqvbotb [Mass/Vol]9.5 mg/dLNormal8.9-11.1FMercy Health Defiance HospitalComment on above:Performed By: #### 91062851, 6594600, 0728996, 1020277, 48787743, 6144900, 4611508, 3234204, 2573022, 19018040, 9849464 #### [facility] [address], [place] [address]Jcuwqiwr [Moles/Vol]103 mmol/ZMaxlqd868-117XsbbgbMedina HospitalComment on above:Performed By: #### 84865700, 6253308, 3546889, 3900238, 09917908, 8788166, 5543796, 0831273, 8128946, 15923970, 7440473 #### [facility] [address], [place] [address]KR1 [Moles/Vol]24 mmol/JWhojhj97-79SxeddwMedina Hospital Comment on above:Performed By: #### 13118464, 5554327, 6305514, 8122098, 31161867, 3332815, 0867311, 0252267, 5673200, 09086435, 8220636 #### [facility] [address], [place] [address]Hzpqjvq [Mass/Vol]102 mg/xPOppkyh15-524AeldzuMedina HospitalComment on above:Result Comment: If this glucose result represents a fasting glucose, interpretation should refer tothe following reference range: 55-99 mg/dLPerformed By: #### 38307040, 7242745, 5495613, 6129149, 67551766, 4635006, 4983586, 8032449, 6479082, 89249984, 3546686 #### [facility] [address], [place] [address]Ojcpdofwl [Moles/Vol]3.6 mmol/LNormal3.5-5.3FMercy Health Defiance HospitalComment on above:Performed By: #### 61082945, 9965368, 0984953, 0265762, 16834703, 0169948, 3789391, 7927817, 4714724, 65557367, 5368372 #### [facility] [address], [place] [address]Jascri [Moles/Vol]136 mmol/FHjdqgt641-273VxandsMedina HospitalComment on above:Performed By: #### 89268073, 5022587, 5356803, 6397544, 61847580, 5660234, 9516719, 4814112, 5905692, 13973721, 2093535 #### [facility] [address], [place] [address]ESW w/ Auto Diffon 66-93-4055Vxsarhqxpme distribution width (RBC) [Ratio]14.2 %Tjljcn42.9-14.2FMercy Health Defiance HospitalComment on above: Performed By: #### 95477196, 9724123, 0196438, 4179987, 12058314, 1644704, 0870343, 7787221, 0741894, 93497980, 0577567 #### [facility] [address], [place] [address]Hqsqneltvk (Bld) [Volume fraction]39.4 %Cpsaas55.0-46.0[facility] HospitalComment on above:Performed By: #### 23659292, 4123842, 7143234, 1950942, 07797174, 4655026, 9916857, 2521680, 7194442, 71272979, 8419122 #### [facility] [address], [place] [address]Hwfyxojsnv (Bld) [Mass/Vol]13.3 g/fCOgaccr25.0-16.0[facility] HospitalComment on above:Performed By: #### 90727688, 4383501, 6599870, 5135788, 01284472, 9985851, 5892269, 8997057, 7393169, 49891063, 8853090 #### [facility] [address], [place] [address]ZXZ (RBC) [Entitic mass]29.2 ayTtlhoa06.0-34.0[facility] HospitalComment on above:Performed By: #### 83049391, 4277730, 3660728, 3432545, 26313437, 9515839, 8866924, 5595465, 4456909, 08502298, 6546605 #### [facility] [address], [place] [address]NFOB (RBC) [Mass/Vol]33.8 g/gCAvylso63.3-35.7FMercy Health Defiance HospitalComment on above:Performed By: #### 99921272, 8034892, 4044705, 7805329, 04107365, 9048083, 2080627, 9312212, 5880559, 51335828, 5117295 #### [facility] [address], [place] [address]RPE (RBC) [Entitic vol]86.6 dCMbefks87.0-100.0[facility] HospitalComment on above:Performed By: #### 00492164, 9948021, 2304824, 2432604, 32790218, 0449768, 6794977, 8615030, 8651572, 14458559, 2510576 #### [facility] [address], [place] [address]Vxuccten mean volume (Bld) [Entitic vol]8.8 fLNormal6.4-10.8 [facility] HospitalComment on above:Performed By: #### 46027567, 6122147, 0003128, 9400984, 40430782, 7149980, 8847045, 5331682, 3603888, 31807526, 1416647 #### [facility] [address] [place] [address]Aqdhyexwx (Bld) [#/Vol]307.0 E9/YGccmjf464.0-500.0[facility] HospitalComment on above:Performed By: #### 84653575, 6228195, 4736121, 1875902, 57214829, 1932807, 3303043, 2455640, 0067212, 03575314, 6592860 #### [facility] [address], [place] [address]AFF (Bld) [#/Vol]4.6 E12/LNormal4.3-5.9[facility] HospitalComment on above:Performed By: #### 27304486, 8533043, 0308586, 9084968, 54251496, 2062162, 2911545, 1075712, 3368204, 39709708, 6559554 #### [facility] [address], [place] [address]NYO corrected for nucl RBC Auto (Bld) [#/Vol]9.9 E9/LNormal 4.0-11.0[facility] HospitalComment on above:Performed By: #### 45681915, 2313142, 3365153, 7989103, 92896430, 6349075, 0564573, 9767268, 0040257, 73390860, 0076375 #### [facility] [address], [place] [address]UFoj 30-59-3363GE [Catalytic activity/Vol]53 Int._Unit/LNormal 14-261[facility] HospitalComment on above:Performed By: #### 79048930, 4686878, 1547550, 2604014, 02701189, 3375709, 4350841, 7878348, 9747061, 34632916, 1528318 #### [facility] [address] [place] [address]WJ Clinical Summaryon 52-26-3176UW Clinical Summary [address] [address] ED Clinical Summary Person Information Name: ARIADNA HALEY [facility] Age: 37 Years : 1980 12:00 AM Sex: Female Language: Bermudian PCP: Charles Nicole DO Marital Status: Single Phone: [phone] Visit Id: Visit Reason: Anxiety; Paraesthesia; NUMBNESS [...] 09/14/2018 12:17 AM 09/14/2018 12:17 AM ADDRESS: [address] [place] [address] [place] [id number] PHYS DOC NOTES: MEDICAL INFORMATION: Prescriptions Given: Prescription Display gabapentin (gabapentin 100 mg Cap) 100 mg = 1 cap(s), Oral, Daily, X 7 day(s), # 7 cap(s), Refills(s) 0, Pharmacy: [facility] gabapentin (gabapentin 100 mg Cap) 100 mg = 1 cap(s), Oral, Daily, X 7 day(s), # 7 cap(s), Refills(s) 0, Pharmacy: [facility]/pharmacy #[id number] magnesium oxide (magnesium oxide 400 mg Tab) 400 mg = 1 tab(s), Oral, Daily, X 7 day(s), # 7 tab(s), Refills(s) 0, Pharmacy: [facility] #24 magnesium oxide (magnesium oxide 400 mg Tab) 400 mg = 1 tab(s), Oral, Daily, X 7 day(s), # 7 tab(s), Refills(s) 0, Pharmacy: [facility]/pharmacy #[id number] Home Meds Display metformin (metformin 500 mg ER Tab) 250 mg, Oral, BID, Refills(s) 0 PATIENT EDUCATION INFORMATION: Instructions: Paresthesia, Desy-ny-Aojh; Restless Legs Syndrome Follow up: With: Address: [facility] [address] [place] [address] Business (1) Within 1 to 2 days Comments: neurologist you may also follow up with him With: Address: When: [address] [address] Business (1) Within 1 to 2 days Comments: Return to ED if symptoms worsen DIAGNOSIS: 1:Restless leg syndromeNormalBonilla Pollard Medical CenterED Note-Nursingon 53-48-3362VF Note-NursingPt up to RR, gait steady.[facility] CenterED Note-NursingAware of need for urine specimen, denies urge at present, states will notify when able to produce sample, will monitor.[facility] CenterED Note-Physicianon [id number] Note-PhysicianBasic Information Time Seen: Génesis Lozoya DO [...] 1 to 2 days [facility] [address] [address]- business (1) Additional Instructions: neurologist you may also follow up with him Charles Nicole Within 1 to [address] [place] [address]- Business (1) Additional Instructions: Return to ED if symptoms worsen Patient Education Paresthesia, Tlqy-wk-Vgvm Restless Legs Syndrome Problem List/Past Medical History [...] Lymph Auto: 30.6 % (09/13/18 23:03:00 EDT) Gladwin Auto: 7.2 % (09/13/18 23:03:00 EDT) Eos Auto: 2.2 % (09/13/18 23:03:00 EDT) Basophil Auto: 0.6 % (09/13/18 23:03:00 EDT) Neutro Absolute: 5.9 E9/L (09/13/18 23:03:00 EDT) Lymph Absolute: 3 E9/L (09/13/18 23:03:00 EDT) Gladwin Absolute: 0.7 E9/L (09/13/18 23:03:00 EDT) Eos [...] 00:08:00 EDT) Diagnostic Results No qualifying data available.[facility] CenterComment on above: Result Comment: Electronically Signed By: Génesis Lozoya DO\.br\Date and Time Signed: 09/14/18 01:59 EDTED Patient Education Noteon [id number] Patient Education NoteFamily Medicine Paresthesia Paresthesia is [...] Document Reviewed: 01/29/2012 ExitCare? Patient Information ?2015 [employer]. This information is not intended to replace [...] ? Drawing. ? Crawling. ? Worming. ? Beaufort. ? Tingling. ? Pins and needles. ? [...] Document Reviewed: 08/06/2011 ExitCare? Patient Information ?2014 [employer] [facility]. This information is not intended to replace advice given to you by your health care provider. Make sure you discuss any questions you have with yourhealth care provider.[facility] Patient Summaryon [id number] Patient Summary [place] [id number] Patient Discharge Instructions Person Information Name: ARIADNA HALEY Age: 37 Years Arrival Date: 09/13/2018 10:16 PM Discharge Diagnosis: 1:Restless leg syndrome Primary Care Physician: Charles Nicole DO Provider Information Primary Provider: Génesis Lozoya DO Advanced Sales Floor Team Leader:None The exam and treatment you received in the Emergency Department were for an urgent problem and are not intended as complete care. It is important that you follow up with a doctor, nurse practitioner,or physician?s lead assistant manager for ongoing care. If your [...] With: Address: When: Sayda Kelley [facility], [address] [place], [place] [address] [address] Business (1) Within 1 to 2 days Comments: neurologist you may also follow up with him With: Address: When: Charles [address] [place] [address] Business (1) Within 1 to 2 days Comments: Return to ED if symptoms worsen In the event that this physician does not participate in your insurance network, please consult with your insurance company to find a nearby participating provider. Patient Education Materials: Paresthesia, Ymcb-sj-Vyst; Restless Legs Syndrome A MESSAGE TO ALL PATIENTS REGARDING OPIOIDS PRESCRIPTION OPIOIDS: WHAT YOU NEED TO KNOW Prescription opioids can be used to help relieve dpcgjoqj-zm-rnmfgp pain and are often prescribed following a [...] your community drug take- back program or Harry [employer] David mail-back program, or flush them down the toilet, following guidance from the Food and Drug Administration (www.fda.gov/Drugs/ResourcesForYou). ? Visit www.cdc.gov/drugoverdose to learn about the risks of opioids abuse and overdose. ? If you believe you may be struggling with addiction, tell your health personal care home administrator and ask for guidance or call [facility]?S National Helpline at 3-016-511-FTZK. r Source: US Department of Health and Human Services/Center for Disease Control & Prevention [facility] Medications Given: Medication Dose Route Sodium Chloride 0.9% intravenous solution 1000.00 mL Initial Volume 1000.00 mL/hr IV Piggyback Left Mid Forearm Medication Information: New Medications [facility]/pharmacy #[id number], [address], [place] [id number], [phone] gabapentin (gabapentin 100 mg Cap) 1 Capsules By Mouth every day for 7 Days. Refills: 0. magnesium oxide (magnesium oxide 400 mg Tab) 1 Tabs By Mouth every day for 7 Days. Refills: 0. [facility] #77, [address], [place] [id number], [phone] gabapentin (gabapentin 100 mg Cap) 1 Capsules By Mouth every day for 7 Days. Refills: 0. magnesium oxide (magnesium oxide 400 mg Tab) 1 Tabs By Mouth every day for 7 Days. Refills: 0. Medications to Continue with No Changes Other Medications metformin (metformin 500 mg ER Tab) 250 Milligram By Mouth 2 times a day. Comment: Pharmacy Information: Thank you for choosing [facility] Patient Education Materials: Paresthesia Paresthesia is [...] Document Reviewed: 01/29/2012 ExitCare? Patient Information ?2015 [employer]. This information is not intended to replace [...] ? Drawing. ? Crawling. ? Worming. ? Beaufort. ? Tingling. ? Pins and needles. ? [...] Document Reviewed: 08/06/2011 ExitCare? Patient Information ?2015 [facility], [facility]. This information is not intended to replace advice given to you by your health care provider. Make sure you discuss any questions you have with yourhealth care provider. TERA Dorantes NICOLE B , have received the following patient education materials/instructions and have verbalized understanding: Patient Education Materials: Paresthesia, Cazc-iw-Izwp; Restless Legs Syndrome Follow-up Instructions: With: Address: When: Sayda Kelley [facility], [place] [address] Business (1) Within 1 to 2 days Comments: neurologist you may also follow up with him With: Address: When: Charles Nicole [address] [place] [address] [facility] (1) Within 1 to 2 days Comments: Return to ED if symptoms worsen Prescriptions: [gabapentin (gabapentin 100 mg Cap)] [gabapentin (gabapentin 100 mg Cap)] [magnesium oxide (magnesium oxide 400 mg Tab)] [magnesium oxide (magnesium oxide 400 mg Tab)] Patient Signature Clinician/Nurse Signature Date 09/14/18 00:21:38NormalMedina HospitalHep Func Panelon 09-14-2018 Bilirubin.direct [Mass/Vol]UTCAbnormal0.1-0.9[facility] HospitalComment on above:Result Comment: Result verified by Discern Rule. Performed result UTC (Unable to Calculate) was sent as an Alpha code due the inability to calculate a valid numeric value.Performed By: #### 56785708, 7701339, 8407651, 8884433, 52225883, 0211588, 6918176, 8255069, 6777911, 86830886, 6869013 #### [facility] [address], [place] [address]Tnfwcmv [Mass/Vol]1.1 g/dLNormal1.1-2.2FMercy Health Defiance HospitalComment on above:Performed By: #### 80643252, 6580719, 5638113, 1591736, 28660673, 4573874, 8114960, 4830087, 0964106, 60570094, 8009724 #### [facility] [address], [place] [address]Khmlnng [Mass/Vol]4.1 g/dLNormal3.3-5.0[facility] HospitalComment on above:Performed By: #### 74842156, 4019300, 2004792, 8127786, 11277439, 6220561, 3163772, 6537499, 1606952, 96114094, 3168107 #### [facility] [address] [place] [address]ZZA [Catalytic activity/Vol]69 Int._Unit/PBmeulz57-67KxoetrMedina HospitalComment on above:Performed By: #### 36174904, 5301024, 1441913, 0719597, 72086476, 8304469, 9803726, 4545407, 0033667, 26669477, 6394185 #### [facility] [address] [place] [address]K No additional P-5'-P [Catalytic activity/Vol]27 Int._Unit/L Normal6-46[facility] HospitalComment on above:Performed By: #### 72623896, 5611903, 7375290, 6781466, 13396621, 5005352, 8684540, 3535391, 9285317, 19259029, 8146682 #### [facility] [address] [place] [address]QKB [Catalytic activity/Vol]16 Int._Unit/LNormal5-43[facility] HospitalComment on above:Performed By: #### 38253252, 4968823, 6907735, 6327159, 04567358, 9716725, 2936803, 6638653, 9556036, 75684336, 5831481 #### [facility] [address] [place] [address]Xnvjoxcpb [Mass/Vol]0.5 mg/dLNormal0.0-1.1FMercy Health Defiance HospitalComment on above:Performed By: #### 95725854, 0877190, 2169329, 6401483, 71324716, 8890735, 7486862, 5878833, 8490927, 87285163, 9098970 #### [facility] [address] [place] [address]Ipohsvmci.direct [Mass/Vol]mg/dLNormal0.1-0.4FMercy Health Defiance HospitalComment on above:Performed By: #### 84835997, 1143933, 9040334, 9237673, 36100099, 8704607, 8715112, 2507917, 1006868, 75529018, 8334345 #### [facility] [address], [place] [address]Hcckdgpk (S) [Mass/Vol]3.7 g/dLNormal1.4-4.0[facility] HospitalComment on above:Performed By: #### 67174215, 6492996, 5801241, 2769109, 17053774, 8144437, 6499996, 4896113, 2770035, 91055529, 1650954 #### [facility] [address], [place] [address]Fyqhgfq [Mass/Vol]7.8 g/dLNormal6.0-7.8[facility] HospitalComment on above:Performed By: #### 44080454, 7882641, 7672171, 4598022, 16321634, 4479576, 5504914, 7731162, 1686999, 91155931, 4791552 #### [facility] [address], [place] [address]Vjatlxdioch 67-14-0358Zlndzsfyc [Mass/Vol]1.9 mg/dLNormal 1.3-2.4FMercy Health Defiance HospitalComment on above:Performed By: #### 76736129, 8940838, 5481403, 8462943, 78912374, 4152574, 3000482, 7976352, 6227429, 05474429, 4682728 #### [facility] [address], [place] [address]Icubnbaekfj 82-37-6867Rsmrpjdtd [Mass/Vol]9 ng/mLNormal<=69 [facility] HospitalComment on above:Performed By: #### 91694635, 6406451, 4770541, 0714185, 69529021, 5099272, 1765336, 7547639, 2659465, 68592617, 2410685 #### [facility] [address], [place] [address]XE & PTTon 49-75-6049sMYW Coag (PPP) [Time]34.5 second(s)Normal 25.1-36.5Fisher [facility] Pratt HospitalComment on above:Result Comment: Heparin therapeutic range (represented by Anti-Factor Xa activity of 0.2 - 0.4 U/mL) corresponds to PTT of 56.6 - 109.0 sec.Performed By: #### 23910111, 0834408, 0225694, 1412934, 41052876, 1940915, 0838547, 9323745, 3043731, 56473801, 4287047 #### [facility] [address], [place] [address]UEA Coag (PPP) [Relative time]1.0 {INR}[facility] HospitalComment on above:Result Comment: INR results are specifically intended to assess patients stabilized on long-term Anticoagulation therapy suggested INR?s ?Less Intensive Anticoagulation? 2.0 ? 3.0 Conventional Range 3.0 ? 4.5Performed By: #### 91264836, 3192025, 6929429, 0206882, 93198746, 7587748, 6941931, 3802416, 2759874, 08730755, 6411915 #### [facility] [address], [place] [address]UM Coag (PPP) [Time]11.2 second(s)Avytbk11.2-12.9[facility] HospitalComment on above:Performed By: #### 07293097, 9446688, 0423545, 6303192, 08447203, 7690394, 8203414, 0862690, 1047865, 14884089, 5337403 #### [facility] [address], [place] [address]Eqveochelmsi 35-14-4773Sdbxzzzdc [Mass/Vol]3.8 mg/dLNormal 1.9-4.6Fisher [facility] Pr[facility] HospitalComment on above:Performed By: #### 25940947, 7534476, 9843066, 6751843, 66445501, 0757058, 3578173, 7176668, 0092874, 97058594, 5377515 #### [facility] [address], [place] [address]Vpfloqif 0 Hr.on 66-78-1434Owcnfwmh I.cardiac [Mass/Vol]ng/mL Normal<=0.03[facility] HospitalComment on above:Result Comment: New Troponin Assay 10/05/13 KRISHNA PA Cutoff value > or = 0.03 ng/mL in conjunction with clinical conditions of myocardial infarction. (www.escardio.org/guidelines)Performed By: #### 63948582, 7626163, 8756954, 6019303, 42381211, 9194392, 3667810, 7174948, 8945464, 85152291, 8994837 #### [facility] [address], [place] [address]HF With Cult Reflexon 81-01-7352Jccjuvhm LM Ql (Urine sed)TRACE NormalTraceMedina HospitalComment on above:Performed By: #### 67790409, 3099017, 9951627, 0279397, 64887284, 8170962, 8112238, 9514443, 5227529, 77308046, 2999340 #### [facility] [address], [place] [address]Fccxifvtu Ql (U)NegativeNormalNegativeMedina HospitalComment on above:Performed By: #### 96772559, 4528964, 1185013, 2156963, 61807057, 1149494, 2842167, 6066678, 6037157, 02031248, 1511973 #### [facility] [address] [address]Wqwmyye (U)CLEARNormalClearMedina HospitalComment on above:Performed By: #### [id number], 4298837, 3166495, 8304638, 13431422, 8431809, 0221200, 5924443, 6116937, 34553282, 8784086 #### [place] [facility] [address], [place] [address]Bhcmg (U)YELLOWNormalYellowNovant Health Rehabilitation Hospitaler [facility] HospitalComment on above:Performed By: #### [id number], 9654025, 0915799, 9801915, 31903050, 5667348, 5393070, 8602337, 4613255, 13228234, 1423810 #### [facility] [address], [place] [address]Qcbkqwmvee cells.squamous LM.HPF (Urine sed) [#/Area]0-2Normal 0-2Fisher [facility] Pr[facility] HospitalComment on above:Performed By: #### [id number], 9672263, 0803539, 1329184, 72208393, 9210208, 0414655, 9058103, 8233570, 90751863, 7169909 #### [facility] [address], [place] [address]Mfqfsfg Test strip (U) [Mass/Vol]NegativeNormalNegativeMedina HospitalComment on above:Performed By: #### [id number], 6700004, 3728680, 2353573, 90754201, 6161304, 2101280, 8092101, 1578722, 41069755, 4008365 #### [facility] [address] [place] [address]Chrlrkatnk Ql (U)NegativeNormalNegativeMedina HospitalComment on above:Performed By: #### [id number], 3429669, 0003757, 2004277, 75752930, 7549473, 1421364, 9122543, 2095286, 02864562, 1237330 #### [facility] [address], [place] [address]Lrvwdri (U) [Mass/Vol]NegativeNormalNegativeMedina HospitalComment on above:Performed By: #### 16940729, 3322113, 7241102, 8513226, 18970891, 3255868, 8407247, 5467884, 7945841, 38162941, 4223823 #### Crystal [facility] [address], [place] [address]Ialjhnl.plasma/[place].RBC (Bld) [Mass ratio]8-6Zrdsjq0-9Mwmwev [facility] HospitalComment on above:Performed By: #### [id number], 5929531, 2372743, 7822846, 22921504, 2353838, 4069203, 6680945, 8394145, 66171847, 4258949 #### [place] [facility] [address] [place] [address]Zsqsu Ql (Urine sed)TRACENormalMedina Hospital Comment on above:Performed By: #### [id number], 0367960, 5784393, 1659323, 96902545, 8321471, 1568245, 3855783, 7633646, 35911926, 7140203 #### [place] [facility] [address], [place] [address]Fojicqa Ql (U)NegativeNormalNegativeMedina Hospital Comment on above:Performed By: #### [id number], 9014540, 3042489, 3122208, 17738073, 4455044, 3800988, 4451710, 0663996, 60139638, 2691821 #### [facility] [address], [place] [address]wC (U)6.0 [pH]5.0-9.0Medina HospitalComment on above:Performed By: #### 35875869, 8087958, 2452953, 8107847, 44366209, 2377471, 2716715, 2230504, 7910328, 20615078, 7977883 #### [place] [facility] [address], [place] [address]Tugdvww (U) [Mass/Vol]NegativeNormalNegativeMedina HospitalComment on above:Performed By: #### 24820714, 2944467, 3098547, 4578100, 63988388, 8454279, 6231080, 3021220, 6181907, 34933169, 8278323 #### [facility] [address] [place] [address]Hehyumyu gravity (U) [Rel density]1.0101.005-1.030Medina HospitalComment on above:Performed By: #### 63797284, 9990008, 0754270, 8502324, 80401771, 9845784, 1893513, 0679362, 2475245, 64318480, 9609562 #### [facility] [address] [place] [address]RO Spec DescClean CatchNormalMedina HospitalComment on above:Performed By: #### 38531023, 0445632, 3593705, 0875018, 29905438, 6365453, 3217753, 2140256, 7190072, 06683414, 0383196 #### [facility] [address] [place] [address]Tbzctuqaqkks Qn (U)0.2 {Carmella'U}/dLNormal0.0-1.0Medina HospitalComment on above:Performed By: #### 59185386, 4232073, 8162775, 3224519, 57333257, 3540253, 1266465, 6340121, 8212703, 68784105, 1271972 #### [facility] [address] [place] [address]BFE Auto Ql (U)NegativeNormalNegativeMedina HospitalComment on above:Performed By: #### 00401559, 5775615, 2320911, 0263729, 27663586, 6242179, 7559898, 5784984, 9715461, 56588815, 5263588 #### [facility] [address], [place] [address]TEJ LM.HPF (Urine sed) [#/Area]7-9Ideqmv0-7Etuqkg [facility] HospitalComment on above:Performed By: #### 57385063, 9023368, 4610949, 8780124, 57549798, 1148410, 4627707, 3964214, 4470576, 18275257, 8759085 #### Crystal [facility] [address], [place] [address]ON Chest Single Viewon [id number] Chest Single ViewExam Date/Time: 09/13/2018 23:44 EDT [...] M.D. Transcribed by: minoo Technologist: [facility] SystemXR FOOT LEFT (MIN 3 VIEWS)on 72-89-3497TK FOOT LEFT (MIN 3 VIEWS)Radiology exam is complete. No Radiologist dictation. Please follow up with ordering provider. Final resultNoOhioHealth O'Bleness HospitalXR FOOT RIGHT (MIN 3 VIEWS)on [id number] FOOT RIGHT (MIN 3 VIEWS)Radiology exam is complete. No Radiologist dictation. Please follow up with ordering provider. Final resultNormalToledo HospitaleGFRon 12-57-7360WQN/1.73 sq M predicted among blacks MDRD (S/P/Bld) [Vol rate/Area]mL/min/{1.73_m2}Normal>=59Medina HospitalComment on above:Order Comment: Order added by Discern Expert.Result Comment: eGFR is race adjusted. AA=.Performed By: #### [id number], 3992918, 2756921, 9638336, 43385447, 4485207, 3250303, 3245516, 9974761, 11219972, 0187632 #### [place] [facility] [address], [place] [address]GKQ/1.73 sq M predicted among non-blacks MDRD (S/P/Bld) [Vol rate/Area]mL/min/{1.73_m2}Normal>=59FishWestern Maryland Hospital CenterComment on above: Order Comment: Order added by Discern Expert.Result Comment: Chronic kidney disease could be indicated at eGFR's of less than 60 mL/min/1.73m2. Kidney failure is indicated at less than 15 mL/min/1.73m2.Performed By: #### [id number], 6501229, 5480370, 0837439, 88383348, 0999032, 5028570, 6506717, 3871568, 73379174, 5212778 #### [place] [facility] [address] [place] [address] Vital Signs Date TimeVital SignValuePerforming EanzbqqsdEpuwhbks97-60-9726 10:09-0400Body .2 Bruno Pacheco MD Work Phone: [facility] CenterIuswgfiaup92-19-1434 10:09-0400Body mass index (BMI) [Ratio]45.58 kg/n3PxmlvsTerence Pacheco MD Work Phone: [facility] CenterVnkcwmxdwy38-51-1388 10:09-0400Body ilcqaz039 kg Terence Pacheco MD Work Phone: [facility] CenterBsquzxegsc56-59-8922 11:52-0400Body temperature 98.6 [degF]Tab May MD Work Phone: [facility]10-22-2025 11:52-0400Body weight 131.81 kgTab May MD Work Phone: [facility]10-22-2025 11:52-0400Diastolic blood vnfojitr33 mm[Hg]Tab May MD Work Phone: [facility]10-22-2025 11:52-0400Heart rate95 /minTab May MD Work Phone: [facility]10-22-2025 11:52-0400Respiratory rate18 /Keshia May MD Work Phone: 1(992)161-[address] [place], [place] 5777310-22-2025 11:52-6140ErA2% (BldA) [Mass fraction]96 %Tab May MD Work Phone: 1(093)918-[address] [place], [place] 5777310-22-2025 11:52-0400Systolic blood sjglythc505 mm[Hg]Tab May MD Work Phone: 1(908)[address]10-21-2025 09:08-0400Diastolic blood cawjkytj36 mm[Hg]Gay Britt [employer] Work Phone: 1(419)[address] [place], [place] 6070710-21-2025 09:08-0400 Heart rate82 /minPamela Britt [employer] SHEET [employer]ER[employer]C Work Phone: 1(419)[address] [place], [place] 6070710-21-2025 09:08-0400 SaO2% (BldA) [Mass fraction]97 %Gay Britt [employer] Work Phone: 1(419)[address] [place], [place] 6070710-21-2025 09:08-0400 Systolic blood dintsltz175 mm[Hg]Gay Britt [employer] SHE[employer]C Work Phone: 1(419)[address] [place], [place] 6070710-10-2025 17:29-0400 Diastolic blood kjjfvofy80 mm[Hg]Gay Britt [employer]AT SHE[employer] MAKER-C Work Phone: 1(419)[facility]-[address] [place], [place] 5235110-10-2025 17:29-0400 Heart rate84 /minPamela Britt FLAT SHEET MA[employer]ER-C Work Phone: 1(419)[address] [place], [place] 6070710-10-2025 17:29-0400 Respiratory rate16 /minPamela Britt FL[employer] SHEET MA[employer]ER-C Work Phone: 1(419)[address] [place], [place] 6070710-10-2025 17:29-0400 SaO2% (BldA) [Mass fraction]97 %Gay Britt [employer] Work Phone: 1(188)[address] [place], [place] 6070710-10-2025 17:29-0400 Systolic blood vnpglwin425 mm[Hg]Gay Britt [employer] SHE[employer]C Work Phone: 1(419)483-[address] [place], [place] 5235110-10-2025 15:06-0400 Body kzcdap117.18 cmPamela Britt FL[employer] SHEET MA[employer]ER[employer]C Work Phone: 1(419)[address]10-10-2025 15:06-0400 Body leaarlwvhyk87.4 [degF]Gay Britt [employer] Work Phone: 1(419)[address]10-10-2025 15:06-0400 Body fydged357.27 kgPamela Britt FLAT SHEET MAKER-C Work Phone: 1(419)[address] [place], [place] 6070710-08-2025 13:34-0400 Body kyhnmu364.18 cmPamela Britt FLAT SHEET MA[employer]ER[employer]C Work Phone: 1(419)[address] [place], [place] 6070710-08-2025 13:34-0400 Body mass index (BMI) [Ratio]43.8 kg/m1Iwdfid Britt FL[employer] SHEET MA[employer]ER[employer]C Work Phone: 1(419)[address] [place], [place] 6070710-08-2025 13:34-0400 Body ueiyfo149 kgPamela Britt FLAT SHEET MAKER-C Work Phone: 1(419)[address] [place], [place] 6070710-08-2025 13:34-0400 Diastolic blood mm[Hg]Gay Britt [employer] Work Phone: 1(419)[address] [place], [place] 6070710-08-2025 13:34-0400 Heart rate99 /minPamela Britt FL[employer] SHEET MA[employer]ER[employer]C Work Phone: 1(419)[address]10-08-2025 13:34-0400 Respiratory rate18 /minPamela Britt FL[employer] SHEET MA[employer]ER[employer]C Work Phone: 1(419)[address] [place], [place] 6070710-08-2025 13:34-0400 SaO2% (BldA) [Mass fraction]95 %Gay Britt [employer] SHE[employer]C Work Phone: 1(419)[address]10-08-2025 13:34-0400 Systolic blood hokdjxsl807 mm[Hg]Gay Britt [employer] SHE[employer] MA[employer]C Work Phone: 1(419)483-[address] [place], [place] 5235110-08-2025 09:25-0400 Body wcweoe364.2 cmAyolanda Pacheco MD Work Phone: 1(632)[address] [place], [place] 5485510-08-2025 09:25-0400Body mass index (BMI) [Ratio]45.58 kg/k6UmtlhnTerence Pacheco MD Work Phone: 1(435)[address] [place], [place] 5485510-08-2025 09:25-0400Body rpshdy941 kg Terence Pacheco MD Work Phone: 1(017)[address] [place], [place] 5485510-08-2025 09:25-0400Diastolic blood ewksvtob14 mm[Hg]Terence Pacheco MD Work Phone: 1(715)[address] [place], [place] 5485510-08-2025 09:25-0400Systolic blood rpudyqse628 mm[Hg]Terence Pacheco MD Work Phone: 1(829)[address] [place], [place] 5485509-24-2025 09:42-0400Body .18 cmPkendrick De La Torre [employer] Work Phone: 1(516)[address]09-24-2025 09:42-0400 Diastolic blood ehvyverh87 mm[Hg]Gayomer Johnmer [employer] Work Phone: 1(161)[address] [place], [place] 6070709-24-2025 09:42-0400 Heart rate65 /Geovany Johnmer [employer] Work Phone: 1(812)[address]09-24-2025 09:42-0400 SaO2% (BldA) [Mass fraction]97 %Gayomer Johnmer [employer] Work Phone: 1(379)[address]09-24-2025 09:42-0400 Systolic blood tjzjojmy032 mm[Hg]Gay Johnmer [employer] SHE[employer]C Work Phone: 1(429)[address] [place], [place] 6070709-10-2025 11:40-0400 Diastolic blood tysnelpa93 mm[Hg]Gay De La Torre [employer] SHE[employer] Work Phone: 1(315)[address]09-10-2025 11:40-0400 Heart rate86 /minPamela Britt [employer] SHE[employer] Work Phone: 1(870)362-[address] [place], [place] 5235109-10-2025 11:40-0400 Respiratory rate18 /minGay Britt [employer] SHE[employer] MA[employer]ER[employer]C Work Phone: 1(463)507-[address] [place], [place] 5235109-10-2025 11:40-0400 SaO2% (BldA) [Mass fraction]94 %Gay Johnmer [employer] Work Phone: 1(732)976-[address] [place], [place] 5235109-10-2025 11:40-0400 Systolic blood eseqjwam575 mm[Hg]Gay Johnmer [employer] Work Phone: 1(613)[address]09-10-2025 10:11-0400 Body taplmp675.18 cmPulia Britt [employer] SHE[employer] MA[employer]ER[employer]C Work Phone: 1(380)553-[address] [place], [place] 5235109-10-2025 10:11-0400 Body qknpej986 kgPajessea Britt [employer] Work Phone: 1(018)662-[address] [place], [place] 5235109-03-2025 14:20-0400 Diastolic blood milsizzk79 mm[Hg]Chair Shorter Work Phone: [facility]09-03-2025 14:20-0400Heart rate82 /min Chair Shorter Work Phone: [facility]09-03-2025 14:20-0400Respiratory rate 18 /minChair Shorter Work Phone: [facility]09-03-2025 14:20-1624KsK1% (BldA) [Mass fraction]98 %Chair Shorter Work Phone: [facility]09-03-2025 14:20-0400Systolic blood tijqsfpb951 mm[Hg]Chair Shorter Work Phone: [facility]09-03-2025 10:42-0400Body temperature 97.81 [degF]Chair Shorter Work Phone: [facility]08-27-2025 10:38-0400Body qyfiob896.18 cmPamela Britt FL[employer] SHE[employer] MAKER[employer]C Work Phone: [facility]08-27-2025 10:38-0400 Diastolic blood ikanpets16 mm[Hg]Gay De La Torre [employer] SHE[employer]ER[employer]C Work Phone: [facility]08-27-2025 10:38-0400 Heart rate92 /minGay De La Torre FLAT SHEET MAKER[employer]C Work Phone: [facility]08-27-2025 10:38-0400 SaO2% (BldA) [Mass fraction]96 %Gay De La Torre [employer] SHE[employer]KER[employer] Work Phone: [facility]08-27-2025 10:38-0400 Systolic blood djtwlakl213 mm[Hg]Gay De La Torre [employer] SHE[employer] MAKER[employer]C Work Phone: [facility]08-21-2025 13:51-0400 Body wdmqujybftw27.29 [degF]Chair Shorter Work Phone: [facility]08-21-2025 13:51-0400Diastolic blood tobhrgvo05 mm[Hg]Chair Shorter Work Phone: [facility]08-21-2025 13:51-0400Heart rate76 /min Chair Shorter Work Phone: [facility]08-21-2025 13:51-0400Respiratory rate 20 /minChair Gabbi Work Phone: [facility]08-21-2025 13:51-0421HhK6% (BldA) [Mass fraction]98 %Chair Shorter Work Phone: [facility]08-21-2025 13:51-0400Systolic blood obtvjfqv780 mm[Hg]Chair Shorter Work Phone: [facility]07-24-2025 14:10-0400Diastolic blood evjmpwoy18 mm[Hg]Chair Gabbi Work Phone: [facility]07-24-2025 14:10-0400Heart rate83 /min Chair Gabbi Work Phone: [facility]07-24-2025 14:10-0400Respiratory rate 18 /minChair Shorter Work Phone: [facility]07-24-2025 14:10-1610IgH3% (BldA) [Mass fraction]96 %Chair Gabbi Work Phone: [facility]07-24-2025 14:10-0400Systolic blood ighepazf023 mm[Hg]Chair Gabbi Work Phone: [facility]07-22-2025 10:45-0400Body qwtocp828.18 cmPamela Britt FL[employer] SHE[employer] MAKER[employer]C Work Phone: 1(292)661-[address] [place], [place] 5235107-22-2025 10:45-0400 Body mass index (BMI) [Ratio]44.8 kg/k4Scknxk Britt [employer]ER[employer]C Work Phone: 1(953)307-[address] [place], [place] 5235107-22-2025 10:45-0400 Body enzzok969.72 kgPamela Britt [employer] SHE[employer] MAKER[employer]C Work Phone: 1(170)958-[address] [place], [place] 5235107-22-2025 10:45-0400 Diastolic blood gaphvsld29 mm[Hg]Gay De La Torre [employer]C Work Phone: 1(830)040-[address] [place], [place] 5235107-22-2025 10:45-0400 Heart rate63 /minPajessea Britt [employer] SHE[employer] MAKER[employer]C Work Phone: 2(901)475-[address] [place], [place] 5235107-22-2025 10:45-0400 Systolic blood ojlreynp368 mm[Hg]Gay Britt [employer]C Work Phone: 1(661)731-[address] [place], [place] 5235107-10-2025 09:08-0400 Diastolic blood seehushj82 mm[Hg]Gay Britt [employer]C Work Phone: 1(112)281-[address] [place], [place] 5235107-10-2025 09:08-0400 Heart rate64 /minPajessea Britt [employer] SHE[employer] MAKER[employer]C Work Phone: 1(562)870-[address] [place], [place] 5235107-10-2025 09:08-0400 SaO2% (BldA) [Mass fraction]98 %Gay De La Torre [employer]ER[employer]C Work Phone: [facility]07-10-2025 09:08-0400 Systolic blood mm[Hg]Gay Britt [employer]KER[employer]C Work Phone: [facility]07-09-2025 14:46-0400 Body fuswvwkoabl89.81 [degF]Chair Gabbi Work Phone: [facility]07-09-2025 14:46-0400Diastolic blood ozhltmfe03 mm[Hg]Chair Shorter Work Phone: [facility]07-09-2025 14:46-0400Heart rate77 /min Chair Shorter Work Phone: [facility]07-09-2025 14:46-0400Respiratory rate 18 /minChair Shorter Work Phone: [facility]07-09-2025 14:46-0602OgK9% (BldA) [Mass fraction]98 %Chair Gabbi Work Phone: [facility] LimaComment on above:[id number] 14:46-0400Systolic blood oeljsgqk887 mm[Hg]Chair Gabbi Work Phone: [facility]07-09-2025 09:13-0400Body ufkbhe802.2 cmVaibhav Carvalho CLOTH DYEING RANGE TENDER.SINGLE POINTED OPERATOR Work Phone: [facility]07-09-2025 09:13-0400Body mass index (BMI) [Ratio]45.12 kg/w8RkzyckVaibhav Carvalho CLOTH DYEING RANGE TENDER.SINGLE POINTED OPERATOR Work Phone: [facility]07-09-2025 09:13-0400Body temperature 97.5 [degF]Vaibhav Carvalho CLOTH DYEING RANGE TENDER.SINGLE POINTED OPERATOR Work Phone: [facility]07-09-2025 09:13-0400Body fvbvec378.7 kgVaibhav Carvalho CLOTH DYEING RANGE TENDER.SINGLE POINTED OPERATOR Work Phone: [facility]07-09-2025 09:13-0400Diastolic blood wbwhpeta23 mm[Hg]Vaibhav Deven CLOTH DYEING RANGE TENDER.SINGLE POINTED OPERATOR Work Phone: [facility]07-09-2025 09:13-0400Heart rate88 /min Vaibhav Deven CLOTH DYEING RANGE TENDER.SINGLE POINTED OPERATOR Work Phone: [facility]07-09-2025 09:13-0400Respiratory rate 18 /minJaimee Deven CLOTH DYEING RANGE TENDER.SINGLE POINTED OPERATOR Work Phone: [facility]07-09-2025 09:13-8977OdW6% (BldA) [Mass fraction]98 %Vaibhav Deven CLOTH DYEING RANGE TENDER.SINGLE POINTED OPERATOR Work Phone: [facility]07-09-2025 09:13-0400Systolic blood wvcqmdho402 mm[Hg]Vaibhav Deven CLOTH DYEING RANGE TENDER.SINGLE POINTED OPERATOR Work Phone: [facility]06-26-2025 13:47-0400Body temperature 98.01 [degF]Chair Shorter Work Phone: [facility]06-26-2025 13:47-0400Diastolic blood huogwsmi63 mm[Hg]Chair Shorter Work Phone: [facility]06-26-2025 13:47-0400Heart rate89 /min Chair Shorter Work Phone: [facility]06-26-2025 13:47-0400Respiratory rate 20 /minChair Gabbi Work Phone: [facility]06-26-2025 13:47-5457KzU2% (BldA) [Mass fraction]97 %Chair Shorter Work Phone: [facility]06-26-2025 13:47-0400Systolic blood fisfhtlq386 mm[Hg]Chair Gabbi Work Phone: [facility]06-23-2025 11:17-0400Body kgvuci644.18 Hilton LINC Work Phone: [facility]06-23-2025 11:17-0400 Body mass index (BMI) [Ratio]44.1 kg/b5UtmdvjGay Johnmer FLAT SHEET MAKER-C Work Phone: [facility]06-23-2025 11:17-0400 Body mkuczh480.91 kgGay Johnmer FLAT SHEET MAKER-C Work Phone: [facility]06-23-2025 11:17-0400 Diastolic blood npvgayrs68 mm[Hg]Gay Britt [employer] SHE[employer] MAKER-C Work Phone: [facility]06-23-2025 11:17-0400 Heart rate96 /minGay Johnmer FLAT SHEET MAKER-C Work Phone: 1(937)816-[address] [place], [place] 5235106-23-2025 11:17-0400 Systolic blood ccgidbzl704 mm[Hg]Gay Johnmer [employer] SHE[employer] MAKER-C Work Phone: [facility]06-10-2025 14:46-0400 Diastolic blood jusqpomp58 mm[Hg]Chair Shorter Work Phone: [facility]06-10-2025 14:46-0400Heart rate68 /min Chair Gabbi Work Phone: [facility]06-10-2025 14:46-0400Respiratory rate 20 /minChair Gabbi Work Phone: [facility]06-10-2025 14:46-0640UhJ6% (BldA) [Mass fraction]94 %Chair Shorter Work Phone: [facility] LimaComment on above:[id number] 14:46-0400Systolic blood cenrdpen037 mm[Hg]Chair Shorter Work Phone: [facility]06-10-2025 09:19-0400Body temperature 97.81 [degF]Chair Shorter Work Phone: [facility]05-14-2025 14:16-0400Body mass index (BMI) [Ratio]44.01 kg/k9Nnfqx Gabbi Work Phone: [facility]05-14-2025 14:16-0400Body temperature 97.59 [degF]Chair Gabbi Work Phone: [facility]05-14-2025 14:16-0400Body epdxju445.5 kgChair Shorter Work Phone: [facility]05-14-2025 14:16-0400Diastolic blood sydhxmph43 mm[Hg]Chair Gabbi Work Phone: [facility]05-14-2025 14:16-0400Heart rate85 /min Chair Shorter Work Phone: [place] [address]-14-2025 14:16-0400Respiratory rate 16 /minChair Shorter Work Phone: [facility]05-14-2025 14:16-2045KgP8% (BldA) [Mass fraction]96 %Chair Shorter Work Phone: [facility]05-14-2025 14:16-0400Systolic blood actdfjlw777 mm[Hg]Chair Shorter Work Phone: [facility]05-12-2025 14:15-0400Body temperature 98.29 [degF]Chair Shorter Work Phone: [facility]05-12-2025 14:15-0400Diastolic blood msdtbpao75 mm[Hg]Chair Shorter Work Phone: [facility]05-12-2025 14:15-0400Heart rate76 /min Chair Shorter Work Phone: [place] [address]-12-2025 14:15-0400Respiratory rate 16 /minChair Gabbi Work Phone: [place] [address]-12-2025 14:15-7457HpA0% (BldA) [Mass fraction]97 %Chair Shorter Work Phone: [facility]05-12-2025 14:15-0400Systolic blood cdpmgebc730 mm[Hg]Chair Shorter Work Phone: [facility]04-28-2025 13:20-0400Body temperature 97.59 [degF]Chair Shorter Work Phone: [place] [address]-28-2025 13:20-0400Diastolic blood ktiirpln59 mm[Hg]Chair Gabbi Work Phone: [facility]04-28-2025 13:20-0400Heart axvo228 /minChair Shorter Work Phone: [place] [address]-28-2025 13:20-0400Respiratory rate 18 /minChair Shorter Work Phone: [facility]04-28-2025 13:20-4019GlK0% (BldA) [Mass fraction]97 %Chair Shorter Work Phone: [facility]04-28-2025 13:20-0400Systolic blood ofdkdsth057 mm[Hg]Chair Gabbi Work Phone: [facility]04-16-2025 16:17-0400Heart rate90 /min Gay De La Torre [employer] SHEET MAKER-C Work Phone: 1(009)946-[address] [place], [place] 5235104-16-2025 16:17-0400 SaO2% (BldA) [Mass fraction]97 %Gay De La Torre [employer] SHE[employer] MAKER-C Work Phone: 0(561)824-[address] [place], [place] 5235104-16-2025 13:54-0400 Diastolic blood sykozmbc99 mm[Hg]Chair Shorter Work Phone: [facility]04-16-2025 13:54-0400Heart rate90 /min Chair Shorter Work Phone: [place] [address]-16-2025 13:54-0400Respiratory rate 18 /minChair Shorter Work Phone: [place] [address]-16-2025 13:54-7630ZqE3% (BldA) [Mass fraction]97 %Chair Shorter Work Phone: [facility]04-16-2025 13:54-0400Systolic blood tnfvsvon391 mm[Hg]Chair Seo Work Phone: [facility]04-16-2025 08:43-0400Body iqpder847.2 cmTodde Deven [employer]OTH DYEING RANGE TENDER.SINGLE POINTED OPERATOR Work Phone: [facility]04-16-2025 08:43-0400Body mass index (BMI) [Ratio]45.5 kg/h3Hwbvcu Deven [employer]OTH DYEING RANGE TENDER.SINGLE POINTED OPERATOR Work Phone: [facility]04-16-2025 08:43-0400Body temperature 97.5 [degF]Vaibhav Deven [employer]OTH DYEING RANGE TENDER.SINGLE POINTED OPERATOR Work Phone: [facility]04-16-2025 08:43-0400Body iabdxh140.8 kgVaibhav Deven CLOTH DYEING RANGE TENDER.SINGLE POINTED OPERATOR Work Phone: [facility]04-16-2025 08:43-0400Diastolic blood tthwbuio19 mm[Hg]Vaibhav Deven [employer]OTH DYEING RANGE TENDER.SINGLE POINTED OPERATOR Work Phone: [facility]04-16-2025 08:43-0400Heart rate77 /min Vaibhav Deven [employer]OTH DYEING RANGE TENDER.SINGLE POINTED OPERATOR Work Phone: [facility]04-16-2025 08:43-0400Respiratory rate 18 /minVaibhav Deven CLOTH DYEING RANGE TENDER.SINGLE POINTED OPERATOR Work Phone: [facility]04-16-2025 08:43-2234GaQ4% (BldA) [Mass fraction]97 %Vaibhav Deven [employer] DYEING RANGE TENDER.SINGLE POINTED OPERATOR Work Phone: [place] [address]-16-2025 08:43-0400Systolic blood akzohins532 mm[Hg]Vaibhav Deven [employer]OTH DYEING RANGE TENDER.SINGLE POINTED OPERATOR Work Phone: [facility]04-14-2025 15:04-0400Body iqzikd073.2 cmGordo Barfield MD Work Phone: [phone] [place], [place] [id number] 15:04-0400Body mass index (BMI) [Ratio]44.32 kg/g1CefsomGordo Barfield MD Work Phone: [facility] [id number] 15:04-0400Body nflojz068.37 kgGordo Barfield MD Work Phone: [facility] [phone] 15:04-0400Diastolic blood givwphuw17 mm[Hg]Gordo Barfield MD Work Phone: [facility] [id number] 15:04-0400Heart xjgy224 /min Gordo Barfield MD Work Phone: [facility] [id number] 15:04-0400Systolic blood mm[Hg]Gordo Barfield MD Work Phone: [facility] [id number] 14:36-0400Diastolic blood amkzizjf56 mm[Hg]Chair Gabbi Work Phone: [facility]03-18-2025 14:36-0400Heart rate83 /min Chair Gabbi Work Phone: [facility]03-18-2025 14:36-0400Respiratory rate 18 /minChair Gabbi Work Phone: [facility]03-18-2025 14:36-1275FcP2% (BldA) [Mass fraction]97 %Chair Shorter Work Phone: [facility]03-18-2025 14:36-0400Systolic blood mm[Hg]Chair Shorter Work Phone: [facility]03-18-2025 10:54-0400Body temperature 98.01 [degF]Chair Shorter Work Phone: [facility]03-10-2025 16:05-0400Diastolic blood omzhhdab00 mm[Hg]Gay De La Torre FLAT SHEET MAKER-C Work Phone: [facility]03-10-2025 16:05-0400 Heart ojag226 /minJosephinea Britt FLAT SHEET MAKER-C Work Phone: [facility]03-10-2025 16:05-0400 SaO2% (BldA) [Mass fraction]96 %Gay De La Torre FLAT SHEET MAKER-C Work Phone: [facility]03-10-2025 16:05-0400 Systolic blood wlionyky652 mm[Hg]Gay De La Torre FLAT SHEET MAKER-C Work Phone: [facility]03-05-2025 15:06-0500 Body btmier853.2 cmLois Holm MD Work Phone: 1(378)[address] [place], [place] 0184503-05-2025 15:06-0500 Body mass index (BMI) [Ratio]44.92 kg/m9ZzquntLois Holm MD Work Phone: 1(919)[address]03-05-2025 15:06-0500 Body eoiwzj987.09 kgLois Holm MD Work Phone: 1(972)[address] [place], [place] 0184503-05-2025 15:06-0500 Diastolic blood kknereum16 mm[Hg]Lois Holm MD Work Phone: 1(773)[address] [place], [place] 0184503-05-2025 15:06-0500 Heart rate84 /Rosalie Holm MD Work Phone: [address] [place], [place] 0184503-05-2025 15:06-0500 Systolic blood hazoeqfh367 mm[Hg]Lois Holm MD Work Phone: 1(844)[address] [place], [place] 0184502-26-2025 11:27-0500 Diastolic blood rvoaurfa66 mm[Hg]Gay De La Torre FLAT SHEET MAKER-C Work Phone: [facility]02-26-2025 11:27-0500 Heart rate78 /minJosephinea Britt FLAT SHEET MAKER-C Work Phone: [facility]02-26-2025 11:27-0500 Respiratory rate16 /minPajessea Britt FLAT SHEET MAKER-C Work Phone: [facility]02-26-2025 11:27-0500 SaO2% (BldA) [Mass fraction]96 %Gay De La Torre FLAT SHEET MAKER-C Work Phone: [facility]02-26-2025 11:27-0500 Systolic blood hofslpoy599 mm[Hg]Gay De La Torre FLAT SHEET MAKER-C Work Phone: [facility]02-26-2025 09:54-0500 Body .18 cmPulial De La Torre FLAT SHEET MAKER-C Work Phone: [facility]02-26-2025 09:54-0500 Body ndkgum341 kgPamelal De La Torre FLAT SHEET MAKER-C Work Phone: [facility]02-19-2025 14:16-0500 Body aznynrpwanq17.91 [degF]Marky WARREN-C Work Phone: [facility]02-18-2025 14:30-0500Body temperature 97.39 [degF]Chair Shorter Work Phone: [facility]02-18-2025 14:30-0500Diastolic blood sdsmuqxu01 mm[Hg]Chair Shorter Work Phone: [facility]02-18-2025 14:30-0500Heart rate69 /min Chair Gabbi Work Phone: [facility]02-18-2025 14:30-0500Respiratory rate 18 /minChair Shorter Work Phone: [facility]02-18-2025 14:30-2571MfY2% (BldA) [Mass fraction]98 %Chair Gabbi Work Phone: [facility]02-18-2025 14:30-0500Systolic blood mm[Hg]Chair Shorter Work Phone: [facility]02-17-2025 15:25-0500Diastolic blood acpinket02 mm[Hg][facility]02-17-2025 15:25-0500Heart wium684 /min[facility]02-17-2025 15:25-9065HjH0% (BldA) [Mass fraction]97 %[facility]02-17-2025 15:25-0500 Systolic blood dfnaaqyz320 mm[Hg][facility]01-21-2025 14:55-0500Diastolic blood rynphuic20 mm[Hg]Chair Gabbi Work Phone: [facility]01-21-2025 14:55-0500Heart rate70 /min Chair Shorter Work Phone: [facility]01-21-2025 14:55-0500Respiratory rate 18 /minChair Gabbi Work Phone: [facility]01-21-2025 14:55-5844YqD0% (BldA) [Mass fraction]98 %Chair Shorter Work Phone: [facility]01-21-2025 14:55-0500Systolic blood icgasdak02 mm[Hg]Chair Gabbi Work Phone: [facility]01-21-2025 08:55-0500Body mass index (BMI) [Ratio]45.08 kg/p5BetawmVaibhav Carvalho CLOTH DYEING RANGE TENDER.SINGLE POINTED OPERATOR Work Phone: [facility]01-21-2025 08:55-0500Body temperature 97.59 [degF]Vaibhav Carvalho CLOTH DYEING RANGE TENDER.SINGLE POINTED OPERATOR Work Phone: [facility]01-21-2025 08:55-0500Body ucuwop032.6 kgVaibhav Carvalho CLOTH DYEING RANGE TENDER.SINGLE POINTED OPERATOR Work Phone: [facility]01-21-2025 08:55-0500Diastolic blood mm[Hg]Vaibhav Carvalho CLOTH DYEING RANGE TENDER.SINGLE POINTED OPERATOR Work Phone: [facility]01-21-2025 08:55-0500Heart rate79 /min Vaibhav Carvalho CLOTH DYEING RANGE TENDER.SINGLE POINTED OPERATOR Work Phone: [facility]01-21-2025 08:55-0500Respiratory rate 16 /minVaibhav Carvalho CLOTH DYEING RANGE TENDER.SINGLE POINTED OPERATOR Work Phone: [facility]01-21-2025 08:55-6096NnZ4% (BldA) [Mass fraction]98 %Vaibhav Carvalho CLOTH DYEING RANGE TENDER.SINGLE POINTED OPERATOR Work Phone: [facility]01-21-2025 08:55-0500Systolic blood iwbdihcp840 mm[Hg]Vaibhav Carvalho CLOTH DYEING RANGE TENDER.SINGLE POINTED OPERATOR Work Phone: [facility]01-14-2025 11:37-0500Body mass index (BMI) [Ratio]45.08 kg/m2Oly WARREN Work Phone: [facility] CenterHdvamysvor29-23-1304 11:37-0500Body bapjfj015.54 kgOly Temo WARREN Work Phone: [facility] CenterZspckkmyjo04-90-7338 11:37-0500Diastolic blood gtcadejd29 mm[Hg]Oly WARREN Work Phone: [facility] CenterRocqovpwaa79-53-2510 11:37-0500Systolic blood mm[Hg]Oly WARREN Work Phone: [facility] CenterEntddcijcb51-65-7560 15:02-0500Body temperature 97.3 [degF]Chair Shorter Work Phone: [facility]12-27-2024 15:02-0500Diastolic blood ezhtzsvo32 mm[Hg]Chair Shorter Work Phone: [facility]12-27-2024 15:02-0500Heart rate73 /min Chair Shorter Work Phone: [facility]12-27-2024 15:02-0500Respiratory rate 20 /minChair Shorter Work Phone: [facility]12-27-2024 15:02-4644XnK6% (BldA) [Mass fraction]98 %Chair Gabbi Work Phone: [facility]:[id number] 15:02-0500Systolic blood tgufijjc993 mm[Hg]Chair Gabbi Work Phone: [facility]12-04-2024 09:31-0500Body temperature 97.59 [degF]Hoda Marshall Work Phone: [facility]12-04-2024 09:31-0500Diastolic blood dwlwowdp80 mm[Hg]Ma Sand Work Phone: [facility]:Wxjrvn08-16-4614 09:31-0500Heart rate66 /minMa Sand Work Phone: [facility]12-04-2024 09:31-0500Respiratory rate 16 /minMa Sand Work Phone: [facility]12-04-2024 09:31-3645LoZ9% (BldA) [Mass fraction]99 %Ma Sand Work Phone: [facility]12-04-2024 09:31-0500Systolic blood dgtakktc028 mm[Hg]Ma Sand Work Phone: [facility]:Bzmfoc04-02-3155 10:12-0500Body .2 cmGordo Barfield MD Work Phone: [facility] CenterAcgqwlvaaw25-53-9073 10:12-0500Body mass index (BMI) [Ratio]44.95 kg/v6XafnmuGordo Barfield MD Work Phone: [place] [address]Zienohacql80-20-1809 10:12-0500Body esktmq508.18 kgGordo Barfield MD Work Phone: [place] [address]Xjacjuohdk21-80-4557 10:12-0500Diastolic blood ucqmkarr24 mm[Hg]Gordo Barfield MD Work Phone: [place] [address]Yggrhxfjmp33-16-1666 10:12-0500Systolic blood kxqiipft323 mm[Hg]Gordo Barfield MD Work Phone: [place] [address]Orszjwnxiq16-73-8974 10:00-0500Body pzzixa625.2 cmHayden Arciniega MD Work Phone: 1(362)[facility]11-14-2024 10:00-0500Body mass index (BMI) [Ratio]43.07 kg/k8VgaqttyHayden Arciniega MD Work Phone: 1(966)[facility]11-14-2024 10:00-0500Body unmmlnfwvok88 [degF]Hayden Arciniega MD Work Phone: 1(821)[facility]11-14-2024 10:00-0500Body liurnb798.74 kgHayden Arciniega MD Work Phone: 1(096)[facility]11-14-2024 10:00-0500Diastolic blood pusqqfna66 mm[Hg]Hayden Arciniega MD Work Phone: 1(392)[facility]11-14-2024 10:00-0500Heart rate 86 /minHayden Arciniega MD Work Phone: 1(794)[facility]11-14-2024 10:00-2681UbD8% (BldA) [Mass fraction]97 %Hayden Arciniega MD Work Phone: 1(140)[facility]11-14-2024 10:00-0500Systolic blood iooolwlz757 mm[Hg]Hayden Arciniega MD Work Phone: 1(487)[facility]11-10-2024 13:27-0500Body mass index (BMI) [Ratio]45.42 kg/m2Marky Nichols DO Work Phone: [facility] CenterAkevoafxye35-44-3378 13:27-0500Body temperature 98.71 [degF]Marky Nichols DO Work Phone: [place] [address]Pjvnvibpqa41-57-6347 13:27-0500Body .54 kgPaul Rashid LIVE Work Phone: [place] [address]Jbunosfwew58-41-1346 13:27-0500Diastolic blood mm[Hg]Marky Nichols DO Work Phone: noC[facility] SouthFsigmzkpyz88-69-9889 13:27-0500Heart rate78 /min Marky Nichols DO Work Phone: noCox SouthDhnkkyfjma25-99-3364 13:27-2685UfT3% (BldA) [Mass fraction]99 %Marky Nichols DO Work Phone: noCox SouthTqfbszffiz00-93-4170 13:27-0500Systolic blood jwnrcnce905 mm[Hg]Marky Nichols DO Work Phone: noCox SouthOdjzjekaop78-25-6013 14:35-0400Body mass index (BMI) [Ratio]44.17 kg/m2Oly Sotoey PA Work Phone: [facility] CenterFmikehiixx32-32-9339 14:35-0400Body sujfio680.91 kgOly Temo PA Work Phone: [facility] CenterEohgdtvddh01-02-1632 14:35-0400Diastolic blood mm[Hg]Oly Plascencia PA Work Phone: [facility] CenterTcqgjhjljm60-41-7171 14:35-0400Systolic blood oqpikzoe236 mm[Hg]Oly Sotoey PA Work Phone: [facility] CenterLnlrpupstx72-16-7891 10:11-0400Body zypvch114.2 cmMa Sand Work Phone: [facility]10-31-2024 10:11-0400Body mass index (BMI) [Ratio]43.06 kg/m2Ma Sand Work Phone: [facility]10-31-2024 10:11-0400Body temperature 97.59 [degF]Ma Sand Work Phone: [facility]10-31-2024 10:11-0400Body asmepd460.74 kgMa Sand Work Phone: [facility]10-31-2024 10:11-0400Diastolic blood wdgehduz16 mm[Hg]Ma Sand Work Phone: [facility]10-31-2024 10:11-0400Heart rate71 /min Ma Sand Work Phone: [facility]10-31-2024 10:11-0400Respiratory rate 16 /minMa Sand Work Phone: [facility]10-31-2024 10:11-0544YhX5% (BldA) [Mass fraction]94 %Ma Sand Work Phone: [facility]10-31-2024 10:11-0400Systolic blood dinpxdds800 mm[Hg]Ma Sand Work Phone: [facility]10-24-2024 11:24-0400Body mass index (BMI) [Ratio]43.67 kg/b9Ysjwf Skip DO Work Phone: [facility] CenterRtcpmeamfk51-23-0187 11:24-040Body .46 kgCorey Skip DO Work Phone: 1(101)667-[facility] CenterRqpvozwgki13-11-4020 11:24-0400Diastolic blood mm[Hg]Luan Skip DO Work Phone: [facility] CenterFbhocpgefv60-84-6920 11:24-0400Systolic blood fsyltfli551 mm[Hg]Luan Skip DO Work Phone: [facility] CenterWlkihuppkx86-73-2643 09:20-0400Body utlkod109.18 cmNP-C Gay De La Torre Work Phone: 5(346)938-[address] [place], [place] 5235110-24-2024 09:20-0400 Body mass index (BMI) [Ratio]43 kg/m2NP-C Gayomer Johnmer Work Phone: 6(047)549-[address] [place], [place] [address]5110-24-2024 09:20-0400 Body .73 kgNP-C Gay Johnmer Work Phone: 9(628)[address]09-30-2024 11:04-0400 Body jquirrumaoq86.2 [degF]Hoda Sand Work Phone: [facility]09-30-2024 11:04-0400Diastolic blood uklfjnbw50 mm[Hg]Ma Sand Work Phone: [facility]:tsaluc12-99-7316 11:04-0400Heart rate95 /minMa Sand Work Phone: [facility]09-30-2024 11:04-0400Respiratory rate 16 /minMa Sand Work Phone: [facility]09-30-2024 11:04-6136TuG6% (BldA) [Mass fraction]98 %Ma Sand Work Phone: [facility]09-30-2024 11:04-0400Systolic blood mm[Hg]Ma Sand Work Phone: [facility]:dgrkui04-33-3195 09:23-0400Diastolic blood phsrkniu82 mm[Hg]FLAT SHEET MAKER-C Gay Johnmer Work Phone: 1(171)864-[address] [place], [place] [address]109-25-2024 09:23-0400 Heart rate70 /minNP-C Gay Johnmer Work Phone: 1(677)[address]09-25-2024 09:23-0400 Respiratory rate16 /minNP-C Gay Johnmer Work Phone: 1(420)[address]09-25-2024 09:23-0400 SaO2% (BldA) [Mass fraction]96 %FLAT SHEET MAKER-C Gay Britt Work Phone: 1(659)320-[address] [place], [place] [address]235109-25-2024 09:23-0400 Systolic blood lebkvmxp701 mm[Hg]FLAT SHEET MAKER-C Gya Johnmer Work Phone: 1(687)[address]09-25-2024 07:27-0400 Body wtocpt588.18 cmNP-C Gayomer Johnmer Work Phone: 1(847)[address]09-25-2024 07:27-0400 Body oqoszh628.46 kgNP-C Gay Britt Work Phone: 1(499)674-[address] [place], [place] [address]109-06-2024 11:31-0400 Body .[address] [facility]09-06-2024 11:31-0400 Diastolic blood ijioetwr43 mm[Hg][facility]09-06-2024 11:31-0400Heart rate69 /minUniversity [facility]09-06-2024 11:31-5814YfE1% (BldA) [Mass fraction]98 %[facility] 01-28-2024 11:31-0400Systolic blood mm[Hg][facility]09-03-2024 11:30-0400Body qcltbnfaolf24.39 [degF]Ma Sand Work Phone: [facility]09-03-2024 11:30-0400Diastolic blood lkuiqtuw84 mm[Hg]Ma Sand Work Phone: [facility]09-03-2024 11:30-0400Heart rate68 /min Ma Sand Work Phone: [facility]09-03-2024 11:30-0400Respiratory rate 16 /minMa Sand Work Phone: [facility]09-03-2024 11:30-8915RgE9% (BldA) [Mass fraction]99 %Ma Sand Work Phone: [facility]09-03-2024 11:30-0400Systolic blood ifsmyapj61 mm[Hg]Ma Sand Work Phone: [facility]08-05-2024 11:16-0400Diastolic blood gmuqwmzt68 mm[Hg]Neda Liz PA-C Work Phone: [facility]08-05-2024 11:16-0400Systolic blood tbkblhuk28 mm[Hg]Neda Liz PA-C Work Phone: [facility]08-05-2024 11:02-0400Body akjyyv585.2 cmMinedy Liz PA-C Work Phone: [facility]08-05-2024 11:02-0400Body mass index (BMI) [Ratio]43.08 kg/f0Zcugz Liz PA-C Work Phone: [facility]08-05-2024 11:02-0400Body temperature 97.7 [degF]Neda Liz PA-C Work Phone: [facility]08-05-2024 11:02-0400Body dcattf350.8 kgMinedy Hill PA-C Work Phone: [facility]08-05-2024 11:02-0400Heart rate89 /min Neda Hill PA-C Work Phone: [facility]08-05-2024 11:02-0400Respiratory rate 16 /minMinedy Hill PA-C Work Phone: [facility]08-05-2024 11:02-1338BlJ0% (BldA) [Mass fraction]98 %Neda Hill PA-C Work Phone: [facility]07-25-2024 14:13-0400Body .[address] [facility]07-25-2024 14:13-0400Body mass index (BMI) [Ratio]42.7 kg/p6AtncuavtvUniversity Hospitals St. [facility]07-25-2024 14:13-0400Body enahpgrliom29.6 [degF][facility]07-25-2024 14:13-0400Body ihdgsq229.[address] [facility]07-25-2024 14:13-0400Diastolic blood eabaucvu55 mm[Hg][facility]07-25-2024 14:13-0400 Heart rate75 /min[facility]07-25-2024 14:13-0400Systolic blood jvanhsxs264 mm[Hg][facility]07-08-2024 13:43-0400 Body eqsnefzbdwt98.59 [degF]Ma Sand Work Phone: [facility]07-08-2024 13:43-0400Diastolic blood mm[Hg]Ma Sand Work Phone: [facility]07-08-2024 13:43-0400Heart rate73 /min Ma Sand Work Phone: [facility]07-08-2024 13:43-0400Respiratory rate 16 /minMa Sand Work Phone: [facility]07-08-2024 13:43-1502KmD5% (BldA) [Mass fraction]96 %Ma Sand Work Phone: [facility]07-08-2024 13:43-0400Systolic blood tpeejewd23 mm[Hg]Ma Sand Work Phone: [facility]06-13-2024 13:55-0400Body .[address] [facility]06-13-2024 13:55-0400Body uqvjcyfarto88.3 [degF][facility]06-13-2024 13:55-0400Diastolic blood mrexvrfx77 mm[Hg][facility]06-13-2024 13:55-0400Heart rate62 /min[facility]06-13-2024 13:55-0400Systolic blood rrokjzrb918 mm[Hg][facility]06-05-2024 14:44-0400Body uvtrbckenmd24 [degF]Ma Sand Work Phone: [facility]06-05-2024 14:44-0400Diastolic blood rxuqqluk01 mm[Hg]Ma Sand Work Phone: [facility]06-05-2024 14:44-0400Heart rate97 /min Ma Sand Work Phone: [facility]06-05-2024 14:44-0400Respiratory rate 18 /minMa Sand Work Phone: [facility]06-05-2024 14:44-3685YtQ8% (BldA) [Mass fraction]97 %Ma Sand Work Phone: [facility]06-05-2024 14:44-0400Systolic blood iyqoxfqa790 mm[Hg]Ma Sand Work Phone: [facility]05-29-2024 13:10-0400Body enbftm089.[address] [facility]05-29-2024 13:10-0400Body mass index (BMI) [Ratio]43.2 kg/z7LvrzikxdgUniversity Hospitals St. [facility]05-29-2024 13:10-0400Body owtcyimjcdc82.3 [degF][facility]05-29-2024 13:10-0400Body wlefxr235.[address] [facility]05-29-2024 13:10-0400Diastolic blood kilacpdo93 mm[Hg][facility]05-29-2024 13:10-0400 Heart rate74 /minUniversity [facility]05-29-2024 13:10-0400Systolic blood kygxliix987 mm[Hg][facility]05-09-2024 10:48-0400 Body hbeqgqluduf28 [degF]Ma Sand Work Phone: [facility]05-09-2024 10:48-0400Diastolic blood zlvhueht68 mm[Hg]Ma Sand Work Phone: [facility]05-09-2024 10:48-0400Heart rate71 /min Ma Sand Work Phone: [facility]05-09-2024 10:48-0400Respiratory rate 18 /minMa Sand Work Phone: [facility]05-09-2024 10:48-4529DlE9% (BldA) [Mass fraction]97 %Ma Sand Work Phone: [facility]05-09-2024 10:48-0400Systolic blood cjawuznt537 mm[Hg]Ma Sand Work Phone: [facility]05-01-2024 14:41-0400Body iiqwpm503.93 [facility]04-09-2024 10:34-0400Body gyeumgapjes90.3 [degF]Ma Sand Work Phone: [facility]04-09-2024 10:34-0400Diastolic blood euivomoe71 mm[Hg]Ma Sand Work Phone: [facility]04-09-2024 10:34-0400Heart rate68 /min Ma Sand Work Phone: [facility]04-09-2024 10:34-0400Respiratory rate 18 /minMa Sand Work Phone: [facility]04-09-2024 10:34-2493BnL9% (BldA) [Mass fraction]99 %Ma Sand Work Phone: [facility]04-09-2024 10:34-0400Systolic blood vqhzmrty483 mm[Hg]Ma Sand Work Phone: [facility]03-14-2024 11:15-0400Body temperature 97.39 [degF]Ma Sand Work Phone: [place] [address]-14-2024 11:15-0400Diastolic blood bhxynudc89 mm[Hg]Ma Sand Work Phone: 1(358) 833-304107 [address]14-2024 11:15-0400Heart rate68 /min Ma Sand Work Phone: [place] [address]-14-2024 11:15-0400Respiratory rate 18 /minMa Sand Work Phone: [place] [address]-14-2024 11:15-1983IxI5% (BldA) [Mass fraction]98 %Ma Sand Work Phone: [facility]03-14-2024 11:15-0400Systolic blood jawqsfrq82 mm[Hg]Ma Sand Work Phone: [facility]02-20-2024 11:49-0500Body temperature 97.5 [degF]Ma Sand Work Phone: [facility]02-20-2024 11:49-0500Diastolic blood bhjqhzut95 mm[Hg]Ma Sand Work Phone: [facility]02-20-2024 11:49-0500Heart rate83 /min Ma Sand Work Phone: [facility]02-20-2024 11:49-0500Respiratory rate 18 /minMa Sand Work Phone: [facility]02-20-2024 11:49-3704VuV1% (BldA) [Mass fraction]96 %Hoda Marshall Work Phone: [facility]02-20-2024 11:49-0500Systolic blood dewmqkhj375 mm[Hg]Hoda Marshall Work Phone: [facility]02-20-2024 10:01-0500Diastolic blood axjkrpvv68 mm[Hg]Lois Holm MD Work Phone: [facility]02-20-2024 10:01-0500 Systolic blood ouvttzdg545 mm[Hg]Lois Holm MD Work Phone: [phone](046)912-08[facility]02-20-2024 09:41-0500 Body edaway431.2 cmLois Holm MD Work Phone: [facility]02-20-2024 09:41-0500 Body mass index (BMI) [Ratio]43.85 kg/w0CgxnnyLois Holm MD Work Phone: 1([phone])[phone]02-20-2024 09:41-0500 Body lluwjd459.01 kgLois Holm MD Work Phone: [facility]02-20-2024 09:41-0500 Heart rate71 /minLois Holm MD Work Phone: [facility]02-13-2024 14:48-0500 Body mass index (BMI) [Ratio]41.81 kg/j0NrvwbevKade Early MD Work Phone: [facility] CenterUdzilfckrc37-76-1967 14:48-0500Body ihcyga150.3 kgKade Early MD Work Phone: [facility] CenterVefxicprza42-93-4514 08:45-0500Body eetvlt720.2 cmCarosurya Jasmine APRN-SINGLE POINTED OPERATOR Work Phone: [facility]01-17-2024 08:45-0500 Body mass index (BMI) [Ratio]44.48 kg/v2Zulki Mitali THORPE-SINGLE POINTED OPERATOR Work Phone: [facility]01-17-2024 08:45-0500 Body krctas170.82 kgMichelle Jasmine CLOTH DYEING RANGE TENDER-SINGLE POINTED OPERATOR Work Phone: [facility]01-17-2024 08:45-0500 Diastolic blood stqirhyf13 mm[Hg]Michelle Jasmine CLOTH DYEING RANGE TENDER-SINGLE POINTED OPERATOR Work Phone: [facility]01-17-2024 08:45-0500 Heart rate80 /minMichelle Jasmine CLOTH DYEING RANGE TENDER-SINGLE POINTED OPERATOR Work Phone: [facility]01-17-2024 08:45-0500 Systolic blood hrzlwfeg476 mm[Hg]Michelle Jasmine CLOTH DYEING RANGE TENDER-SINGLE POINTED OPERATOR Work Phone: [facility]01-03-2024 17:17-0500 Body .83 kgChristie Phan MD Work Phone: [facility] HospitalZtykqd40-68-0438 14:42-0500Body fuwyfd588.19 John hPan MD Work Phone: c[facility] HospitalAejksv93-24-7356 11:16-0400Body temperature 97.7 [degF]Ma Sand Work Phone: [facility]10-27-2023 11:16-0400Diastolic blood wiexwccp79 mm[Hg]Ma Sand Work Phone: [facility]10-27-2023 11:16-0400Heart rate75 /min Ma Sand Work Phone: [facility]10-27-2023 11:16-0400Respiratory rate 16 /minMa Sand Work Phone: [facility]10-27-2023 11:16-5848LjZ3% (BldA) [Mass fraction]96 %Ma Sand Work Phone: [facility]10-27-2023 11:16-0400Systolic blood qflpolva998 mm[Hg]Ma Sand Work Phone: [facility]09-29-2023 10:56-0400Body clloai491.2 cmVana Najera MD Work Phone: [facility]09-29-2023 10:56-0400Body temperature 97.39 [degF]Vera Najera MD Work Phone: [facility]09-29-2023 10:56-0400Body blatxc158.75 kgVera Najera MD Work Phone: [facility]09-29-2023 10:56-0400Diastolic blood gfyklyyp62 mm[Hg]Vera Najera MD Work Phone: [facility]09-29-2023 10:56-0400Heart xzqs701 /minVera Najera MD Work Phone: [facility]09-29-2023 10:56-0400Respiratory rate 16 /minVera Najera MD Work Phone: [facility]09-29-2023 10:56-7345XmU1% (BldA) [Mass fraction]96 %Vera Najera MD Work Phone: [facility]09-29-2023 10:56-0400Systolic blood xsrvefgs535 mm[Hg]Vera Najera MD Work Phone: [facility]09-01-2023 12:09-0400Diastolic blood zgrbrcag71 mm[Hg]Ma Sand Work Phone: [facility]09-01-2023 12:09-0400Systolic blood woaffxkl673 mm[Hg]Ma Sand Work Phone: [facility]09-01-2023 12:08-0400Body temperature 97.59 [degF]Ma Sand Work Phone: [facility]09-01-2023 12:08-0400Heart rofa438 /minMa Sand Work Phone: [facility]09-01-2023 12:08-0400Respiratory rate 16 /minMa Sand Work Phone: [facility]09-01-2023 12:08-4051MqW4% (BldA) [Mass fraction]97 %Ma Sand Work Phone: [facility]06-29-2023 11:00-0400Body temperature 97.2 [degF]Ma Sand Work Phone: [facility]06-29-2023 11:00-0400Diastolic blood qzajwccu45 mm[Hg]Ma Sand Work Phone: [facility]06-29-2023 11:00-0400Heart rate98 /min Ma Sand Work Phone: [facility]06-29-2023 11:00-0400Respiratory rate 16 /minMa Sand Work Phone: [facility]06-29-2023 11:00-9232WeH9% (BldA) [Mass fraction]98 %Ma Sand Work Phone: [facility]06-29-2023 11:00-0400Systolic blood fklixcqn826 mm[Hg]Ma Sand Work Phone: [facility]06-01-2023 11:51-0400Body .2 cmMa Sand Work Phone: [facility]06-01-2023 11:51-0400Body .66 kgMa Sand Work Phone: [facility]06-01-2023 11:51-0400Respiratory rate 16 /minMa Sand Work Phone: [facility]06-01-2023 10:50-0400Body nuxcxe908.2 Semaj Najera MD Work Phone: [facility]06-01-2023 10:50-0400Body temperature 97 [degF]Vera Najera MD Work Phone: [facility]06-01-2023 10:50-0400Body kowzbj008.75 kgVera Najera MD Work Phone: [facility] [facility] 10:50-0400Diastolic blood dxhxivpe86 mm[Hg]Vera Najera MD Work Phone: [facility]06-01-2023 10:50-0400Heart rate78 /min Vera Najera MD Work Phone: [facility]06-01-2023 10:50-0400Respiratory rate 16 /minVera Najera MD Work Phone: [facility]06-01-2023 10:50-7769LmU8% (BldA) [Mass fraction]98 %Vera Najera MD Work Phone: [facility]06-01-2023 10:50-0400Systolic blood dmftkozc887 mm[Hg]Vera Najera MD Work Phone: [facility]05-04-2023 10:22-0400Body cjtush838.2 cmMa Sand Work Phone: [facility]05-04-2023 10:22-0400Body temperature 97 [degF]Ma Sand Work Phone: [facility]05-04-2023 10:22-0400Body waojwz312.2 kgMa Sand Work Phone: [facility]05-04-2023 10:22-0400Diastolic blood ukdhacgb10 mm[Hg]Ma Sand Work Phone: [facility]05-04-2023 10:22-0400Heart rate77 /min Ma Sand Work Phone: [facility]05-04-2023 10:22-0400Respiratory rate 16 /minMa Sand Work Phone: [facility]05-04-2023 10:22-2677FqA4% (BldA) [Mass fraction]97 %Ma Sand Work Phone: [facility]05-04-2023 10:22-0400Systolic blood mm[Hg]Ma Sand Work Phone: [facility]04-17-2023 14:03-0400Body qeztos550.2 kgChristie Phan MD Work Phone: [facility] HospitalHbhzvh18-45-4781 09:45-0400Body jqajeb637.2 cmRebekah Rojas CLOTH DYEING RANGE TENDER.SINGLE POINTED OPERATOR Work Phone: [facility]04-06-2023 09:45-0400Body temperature 97.7 [degF]Rebekah Roajs CLOTH DYEING RANGE TENDER.SINGLE POINTED OPERATOR Work Phone: [facility]04-06-2023 09:45-0400Body psitgy472.66 kgRebekah Rojas CLOTH DYEING RANGE TENDER.SINGLE POINTED OPERATOR Work Phone: [facility]04-06-2023 09:45-0400Diastolic blood sizpeyti42 mm[Hg]Rebekah Rojas CLOTH DYEING RANGE TENDER.SINGLE POINTED OPERATOR Work Phone: [facility]04-06-2023 09:45-0400Heart rate63 /min Rebekah Rojas APRN.SINGLE POINTED OPERATOR Work Phone: [facility]04-06-2023 09:45-0400Respiratory rate 16 /minRebekah Rojas APRN.SINGLE POINTED OPERATOR Work Phone: [facility]04-06-2023 09:45-0390NqO0% (BldA) [Mass fraction]96 %Rebekah Rojas CLOTH DYEING RANGE TENDER.SINGLE POINTED OPERATOR Work Phone: [facility]04-06-2023 09:45-0400Systolic blood fvzgbaiu717 mm[Hg]Rebekah Rojas CLOTH DYEING RANGE TENDER.SINGLE POINTED OPERATOR Work Phone: [facility]12-28-2022 13:28-0500Body nqyfxf451.2 Semaj Najera MD Work Phone: [facility]12-28-2022 13:28-0500Body temperature 97.7 [degF]Vera Najera MD Work Phone: [facility]12-28-2022 13:28-0500Diastolic blood sgchbioq38 mm[Hg]Vera Najera MD Work Phone: [facility]12-28-2022 13:28-0500Heart rate93 /min Vera Najera MD Work Phone: [facility]12-28-2022 13:28-0500Respiratory rate 16 /minVera Najera MD Work Phone: [facility]12-28-2022 13:28-4874TgZ6% (BldA) [Mass fraction]97 %Vera Najera MD Work Phone: [facility]12-28-2022 13:28-0500Systolic blood tapvsfwy978 mm[Hg]Vera Najera MD Work Phone: [facility]10-26-2022 10:49-0400Body bjzmat034.2 cmVana Najera MD Work Phone: [facility]10-26-2022 10:49-0400Body temperature 97.81 [degF]Vera Najera MD Work Phone: [facility]10-26-2022 10:49-0400Body .4 kgVera Najera MD Work Phone: [facility]10-26-2022 10:49-0400Diastolic blood dxrumzvy31 mm[Hg]Vera Najera MD Work Phone: [facility]10-26-2022 10:49-0400Heart rate86 /min Vera Najera MD Work Phone: [facility]10-26-2022 10:49-0400Respiratory rate 16 /minVera Najera MD Work Phone: [facility]10-26-2022 10:49-0404YxB8% (BldA) [Mass fraction]98 %Vera Najera MD Work Phone: [facility]10-26-2022 10:49-0400Systolic blood ueryhwxi404 mm[Hg]Vera Najera MD Work Phone: [facility]10-17-2022 11:41-0400Body .2 cmChristie Phan MD Work Phone: U[facility] HospitalZpmoxi95-78-9186 11:41-0400Body .49 kgChristie Phan MD Work Phone: [phone] Health Willard HospitalDvsnio06-85-4935 11:41-0400Diastolic blood xgquslyy163 mm[Hg]Christie Phan MD Work Phone: [phone] Health Willard HospitalEdbvrl84-78-9534 11:41-0400Systolic blood erhiqavs604 mm[Hg]Christie Phan MD Work Phone: OMer[facility] Willard HospitalNbhrzy70-00-2373 10:39-0400Body ejsxia758.2 cmVana Najera MD Work Phone: [facility]10-12-2022 10:39-0400Body temperature 97.5 [degF]Vera Najera MD Work Phone: [facility]10-12-2022 10:39-0400Body gzrmlo754.76 kgVera Najera MD Work Phone: [facility]10-12-2022 10:39-0400Diastolic blood adxstiaq05 mm[Hg]Vera Najera MD Work Phone: [facility]10-12-2022 10:39-0400Heart rate79 /min Vera Najera MD Work Phone: [facility]10-12-2022 10:39-0400Respiratory rate 16 /minVera Najera MD Work Phone: [facility]10-12-2022 10:39-6751ItU8% (BldA) [Mass fraction]99 %Vera Najera MD Work Phone: [facility]10-12-2022 10:39-0400Systolic blood txcnesnb222 mm[Hg]Vera Najera MD Work Phone: [facility]07-06-2022 16:00-0400Body juhmpp006.91 cmMichaesurya Blank Other [employer] Other 07-06-2022 16:00-0400Body mass index (BMI) [Ratio] 37.68 kg/y1Esqgxee Blank Other [employer] Other 07-06-2022 16:00-0400Body nuotcwsyxmc95.4 [degF] Mirela Buffy Other [facility] Other 07-06-2022 16:00-0400Body ypgcqf092.5 kgMichael Blank Other [place] [facility]: water Other 07-06-2022 16:00-0400Diastolic blood tmbidkmu96 mm[Hg] Mirela Buffy Other [employer] Other 07-06-2022 16:00-0400Systolic blood jxacaniw131 mm[Hg] Mirela Buffy Other [employer] Other 06-03-2022 08:18-0400Body csibvw007.86 kgLynne iN MD Work Phone: [facility]06-03-2022 08:18-0400Diastolic blood rzejimaa48 mm[Hg]Lynne Ni MD Work Phone: [facility]06-03-2022 08:18-0400Heart rate72 /min Lynne Ni MD Work Phone: [facility]06-03-2022 08:18-0400Systolic blood yznfvkxg350 mm[Hg]Lynne Ni MD Work Phone: [address] [place], [place] [address]05-25-2022 15:45-0400Body .91 cmMichael Blank Other [employer] Other 05-25-2022 15:45-0400Body mass index (BMI) [Ratio] 38.31 kg/l2Vfvnkfq Blank Other [employer] Other 05-25-2022 15:45-0400Body ccdpzbaeoze58.1 [degF] Mirela Blank Other [employer] Other 05-25-2022 15:45-0400Body .32 kgMichael Blank Other [employer] Other 05-25-2022 15:45-0400Diastolic blood nfurkzrf58 mm[Hg] Mirela Blank Other [employer] Other 05-25-2022 15:45-0400Systolic blood nxfmosnq474 mm[Hg] Mirela Blank Other [employer] Other 04-21-2022 15:15-0400Body vqzpda240.91 cmMichael Blank Other [employer] Other 04-21-2022 15:15-0400Body mass index (BMI) [Ratio] 37.99 kg/k4Xpbrwfw Blank Other [employer] Other 04-21-2022 15:15-0400Body amfywfmhjbw71.9 [degF] Mirela Blank Other [employer] Other 04-21-2022 15:15-0400Body .41 kgMichael Blank Other [facility] [facility] water Other 04-21-2022 15:15-0400Diastolic blood mmbxccun77 mm[Hg] Mirela Baer Other [facility] water Other 04-21-2022 15:15-0400Systolic blood jcpueyxs447 mm[Hg] Mirela Baer Other [employer] Other 05-17-2021 12:45-0400Diastolic blood tdgzljit52 mm[Hg] Stv [facility] Work Phone: 1(471) 356-238005-17-2021 12:45-0400Heart rate68 /minStv [facility] Work Phone: 1(206) 671-429605-17-2021 12:45-1917IdH5% (BldA) [Mass fraction]99 % Stv [facility] [employer] Work Phone: 1(185) 481-614105-17-2021 12:45-0400Systolic blood topbzceu096 mm[Hg] Stv AM[facility] Work Phone: 1(218) 958-474805-17-2021 10:45-0400Respiratory rate22 /minStv [facility]er[facility] Work Phone: 1(989) 604-551605-17-2021 09:01-0400Body obvfkr002.2 cmStv [facility] Work Phone: 1(338) 163-578605-17-2021 09:01-0400Body mass index (BMI) [Ratio] 36.65 kg/m2Stv [facility] Work Phone: 1(851) 335-718705-17-2021 09:01-0400Body bktvibipcyf14.81 [degF]Stv A [employer] Work Phone: 1(808) 733-288105-17-2021 09:01-0400Body zckohh056.14 kgStv [facility] Work Phone: Encounters Encounter DateEncounter TypeCare ProviderFacilityStart: 03-23-2025 End: 32-77-3125bgsbsqtoxnUDEXLH VARGAS VNot AvailableStart: 03-23-2025 End: 46-76-7313Teafwo follow up visit related to original Sushil Blum MD Work Phone: [facility] AssociatesComment on above:Pilonidal abscess (Primary Dx)Start: 03-22-2025 End: 02-92-1732Hxnhdfvoy Result EncounterGordo Barfield MD Work Phone: noms External Department UnsolicitedStart: 03-22-2025 End: 16-87-9268Mltbtrhuj Result EncounterGordo Barfield MD Work Phone: noms External Department UnsolicitedStart: 03-21-2025 End: 92-65-6088scxvvxrhlaQURTG ABHYANKARFacility:[facility] Hospitaltart: 03-21-2025 End: 06-42-0563fueywvkqyyAGZGS ABHYANKARFacility:[facility] HospitalStart: 03-14-2025 End: 73-64-2709Jhnbha outpatient new 60 minutesNandanuta May MD Work Phone: [facility] Infectious DiseaseComment on above:Nipple discharge in female (Primary Dx); Type 2 diabetes mellitus with other specified complication, unspecified whether correction insulin use; Obesity with serious comorbidity in pediatric patient, unspecified obesity class, unspecified obesity type; IgG deficiency; Recurrent infections; Pilonidal abscess; Tobacco use disorderStart: 38-43-7701nfoalegxvuGMNNMCArcelia Ferreira [facility] HospitalStart: 03-13-2025 End: 20-73-1493xlimeeauzqNvazqw Sue Cramer FLAT SHEET MAKER-C Work Phone: [phone]-DafwenpfcThe University Of [facility] MgmtStart: 03-13-2025 End: 14-33-1372Vzhbziz encounter Gamal Kang MD-[facility] Work Phone: Start: 03-09-2025 End: 73-56-1625mzbcvwczckFdmljo Sue Cramer FLAT SHEET MAKER-C Work Phone: -[facility] HospStart: 03-09-2025 End: 75-32-0708Ggzhayta ReferredGay De La Torre SINGLE POINTED OPERATOR-[facility] Path [facility] Carl HospStart: 03-03-2025 End: 91-34-1622llewbbgwkiUjpknt Sue Cramer FLAT SHEET MAKER-C Work Phone: [facility] Work Phone: Start: 03-03-2025 End: 06-88-3946Pkhpovkz ReferredJose Hays DO-[facility] Start: 03-02-2025 End: 80-93-1241Swoqwbofr to same day surgery centerTerence Blum MD-[facility]Start: 03-02-2025 End: 04-32-9707xglxmcuwpjNxfppo Sue Cramer FLAT SHEET MAKER-C Work Phone: [facility] Work Phone: Start: 03-02-2025 End: 17-37-3404Mefqyvbw Result EncounterTerence Blum MD Work Phone: noms External Department UnsolicitedStart: 03-02-2025 End: 61-61-7482Oaekttdt Result EncounterTerence aPcheco MD Work Phone: noms External Department UnsolicitedStart: 02-28-2025 End: 80-21-1456sfeqcwebueDlapet Sue Cramer FLAT SHEET MAKER-C Work Phone: [facility] Work Phone: Start: 02-28-2025 End: 34-10-6203Sqplnvb encounter procedureBandar Batista APRCape Fear [facility] Work Phone: Start: 02-28-2025 End: 78-36-9860Ofaens outpatient new 45 minutesTerence Blum MD Work Phone: [facility] Surgical AssociatesComment on above:Pilonidal abscess (Primary Dx); Pilonidal cystStart: 02-28-2025 End: 35-76-2809jywitapqsgAGKRZG VARGAS VNot AvailableStart: 02-26-2025 End: 94-59-1634pxxshoelatXyqeqb Sue Cramer FLAT SHEET MAKER-C Work Phone: [facility] Work Phone: Start: 02-26-2025 End: 96-61-8766Xzwkxhvt ReferredDahortencia Ji MD-[facility] Start: 02-21-2025 End: 00-73-9718vuguxaazsdCBIYUCJ M HOYFacility:[facility] Hospitaltart: 02-14-2025 End: 84-88-7602Gmkncz outpatient visit 15 minutesEmily Al English MD Work Phone: [facility] [place] DermatologyComment on above:Pilonidal cyst (Primary Dx); Hidradenitis suppurativaStart: 02-14-2025 End: 44-74-3203dexwkgumljNGUNW Al SIMMONSINot AvailableStart: 02-14-2025 End: 84-76-6139Hihbsz flowsheetEmjennifer English MD Work Phone: [facility] [place] DermatologyStart: 02-14-2025 End: 22-70-1449Mqlvqr flowsheetBernabe English MD Work Phone: [facility] [place] DermatologyStart: 02-14-2025 End: 98-41-6686wqtwwvjuwkXxfjad Sue Cramer FLAT SHEET MAKER-C Work Phone: [facility] Work Phone: Start: 02-14-2025 End: 23-08-1728Wtgadhr encounter Joaquin Arnett NP-[facility] Pain Mgmt Work Phone: Start: 02-08-2025 End: 27-02-5691yrcxfgvobaJMDVAQZK TSAIFacility:[facility] Hospitaltart: 01-31-2025 End: 72-62-2992Sekybvbzs to same day surgery centerSbobbi Kang MD-[facility] Work Phone: Start: 01-31-2025 End: 64-54-8179oduhpufoptCqfkaq Sue Cramer FLAT SHEET MAKER-C Work Phone: [facility] Work Phone: Start: 87-90-2436Als-patient / Non-visitSbobbi Kang MD-[facility] Work Phone: Start: 01-26-2025 End: 24-82-5768ivnrieluwkVGD RAMEYNot AvailableStart: 01-24-2025 End: 30-05-7540tkxslsxoqsLcbtm 2 [place] Work Phone: Hematology/OncologyComment on above:Frequent infections (Primary Dx); Hypogammaglobulinemia (HCC); Bilateral leg weakness; Discoid lupus erythematosus; Elevated sed rate; Megaloblastic anemia due to vitamin B12 deficiencyStart: 01-18-2025 End: 14-87-2662Dkwhotaji encounterLynne Ni MD Work Phone: RheumatologyComment on above:ResultsStart: 01-17-2025 End: 27-70-3697lsabfqqxghWjvszd Sue Cramer FLAT SHEET MAKER-C Work Phone: [facility] Work Phone: Start: 01-17-2025 End: 20-34-7969Ggjysea encounter Joaquin Arnett NP-[facility] Work Phone: Start: 01-11-2025 End: 54-73-3287qknhatyfurZekzu 16 [place] Work Phone: Hematology/OncologyComment on above:Other systemic lupus erythematosus with other organ involvement (HCC) (Primary Dx); Elevated LFTs; Anemia of chronic disease; Elevated sed rate; Elevated C-reactive protein (CRP); Vitamin D deficiency; Vitamin B12 deficiency; Screening-pulmonary TBStart: 12-27-2024 End: 40-35-7940mwevgxmibmYGBMW ABHYANKARFacility:[facility] Hospitaltart: 12-14-2024 End: 53-68-9672VwskvKenmore Hospital Main Work Phone: NeurologyComment on above:CMNStart: 12-14-2024 End: 48-65-8053ofewhlooxnQnqhz 16 [address] Work Phone: Hematology/OncologyComment on above:Other systemic lupus erythematosus with other organ involvement (HCC) (Primary Dx)Start: 12-12-2024 End: 00-81-7186Eepwahc encounter procedureBandar Batista [facility] Gastro Work Phone: Start: 11-30-2024 End: 86-17-5528Gnfngn-up encounterVaibhav Carvalho APRN.CNP Work Phone: Hematology/OncologyComment on above:ResultsStart: 11-30-2024 End: 15-80-8617xaobrcyntzEsxtws Sue Cramer NP-C Work Phone: [facility] Work Phone: Start: 11-30-2024 End: 22-16-9857Xuqrenu encounter procedureMargie Arnett NP-[facility] Pain Mgmt Work Phone: Start: 11-29-2024 End: 19-42-8426Qbgdzs outpatient visit 25 Crys Carvalho APRN.CNP Work Phone: Hematology/OncologyComment on above: Hypogammaglobulinemia (HCC) (Primary Dx); Vitamin B12 deficiency; Other iron deficiency anemia; Malaise and fatigue; Shortness of breath; Other specified disorders of breast; Pre-diabetes; Gastro-esophageal reflux disease without esophagitisStart: 11-29-2024 End: 93-36-9212dzjckpwhiiYjorb 3 [address]orter Work Phone: Hematology/OncologyComment on above:Elevated sed rate (Primary Dx); Megaloblastic anemia due to vitamin B12 deficiency; Frequent infections; Hypogammaglobulinemia (HCC); Bilateral leg weakness; Discoid lupus erythematosusStart: 11-23-2024 End: 05-62-3478Jvqgjm outpatient visit 25 minutesRyleozzy WARREN Work Phone: [facility] DERMComment on above:Hidradenitis suppurativa (Primary Dx); Pain; Acne vulgarisStart: 11-23-2024 End: 32-85-2942xlodjyhydjIREUW NORTHEIMNot AvailableStart: 45-47-8780kuonlqoyro Janes BarfieldFacility:[facility] Centertart: 11-22-2024 Registered Sofia Barfield [facility] CredibleStart: 11-21-2024 End: 07-54-5847jidbkiikgxGxnvws Sue Cramer FLAT SHEET MAKER-C Work Phone: [facility] Work Phone: Start: 11-21-2024 End: 20-50-7293Wkrdrpo encounter procedureShertobi Kang MD-[facility] Work Phone: Start: 12-41-0750Qoa-patient / Non-visitSbobbi Kang MD-[facility] Work Phone: Start: 11-20-2024 End: 97-80-0416Nuduhgkhr encounterVaibhav Carvalho APRN.CNP Work Phone: Hematology/OncologyComment on above:Lab OrdersStart: 11-16-2024 End: 49-88-7549zgiysoqbyhFhbdy 16 [address] Work Phone: Hematology/OncologyComment on above:Other systemic lupus erythematosus with other organ involvement (HCC) (Primary Dx)Start: 11-15-2024 End: 52-26-6585Bdttgvknk encounterLaura Whalen RP Work Phone: [facility] HB-3Start: 11-13-2024 End: 58-82-9727Hwmhmmj encounter procedureSbobbi Kang MD-[facility] Work Phone: Start: 10-31-2024 End: 94-75-4816kbhwwmbhkpGhydu 2 [address]orter Work Phone: Hematology/OncologyComment on above:Elevated sed rate (Primary Dx); Megaloblastic anemia due to vitamin B12 deficiency; Frequent infections; Hypogammaglobulinemia (HCC); Bilateral leg weakness; Discoid lupus erythematosusStart: 10-19-2024 End: 30-37-9864itvyjndftdFksjf 14 [employer] Work Phone: Hematology/OncologyComment on above:Other systemic lupus erythematosus with other organ involvement (HCC) (Primary Dx)Start: 10-17-2024 End: 09-81-2052jtrlzazcitJSQVUYY M HOYFacility:[facility] Hospitaltart: 10-07-2024 End: 77-92-8129Lxayywj encounter procedureLynne Ni MD Work Phone: eumatologyComment on above:Other systemic lupus erythematosus with other organ involvement (HCC) (Primary Dx); Vitamin D deficiency; Fibromyalgia; CHRISTIAN positive; Elevated sed rate; Vitamin B12 deficiency; Secondary osteoarthritis of multiple sites; Chronic bilateral low back pain with bilateral sciatica; Chronic pain of toes of both feet; Long-term use of high-risk medication; 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; Bilateral hand pain; Family history of Crohn's disease; 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; Bilateral wrist painStart: 10-07-2024 End: 68-74-3918Hzjdhausoeyc consultation with Jyothi Ni MD Work Phone: RheumatologyStart: 10-07-2024 End: 48-46-7437rbrxlsytakVPCRUVXE TSAIFacility:[facility] Hospitaltart: 10-06-2024 End: 92-27-3884Xcbwancgi encounterLynne Ni MD Work Phone: RheumatologyComment on above:ResultsStart: 2024 End: 30-89-3502ofdwvuomprHeosh 14 [employer] Work Phone: Hematology/OncologyComment on above:Other systemic lupus erythematosus with other organ involvement (HCC) (Primary Dx)Start: 10-02-2024 End: 33-30-0590klubvnztquXijtb 2 [place] Work Phone: Hematology/OncologyComment on above:Frequent infections (Primary Dx); Hypogammaglobulinemia (HCC); Bilateral leg weakness; Discoid lupus erythematosus; Elevated sed rate; Megaloblastic anemia due to vitamin B12 deficiency; Elevated LFTs; Anemia of chronic disease; Elevated C-reactive protein (CRP); Vitamin D deficiencyStart: 09-20-2024 End: 12-86-6967Dkvocjxgr PharmacyCalhugo Quintanilla [facility]ty PharmacyComment on above:SPP Inflammatory Conditions - Medication Refill (Benlysta)Start: 09-19-2024 End: 04-58-9671glgbsruiecZJWJHZT M HOYFacility:[facility] HospitalStart: 09-19-2024 End: 20-30-7648Pvbhmyf encounter Ligia Arroyo [facility] Work Phone: GM[facility] MAIN WALKERComment on above:Fibromyalgia (Primary Dx); Family history of disease of aorta; Family history of cancerGeneralized articular hypermobility (Primary Dx); Chronic pain syndrome; Discoid lupus erythematosus; Family history of pneumothorax in son; Family history of cancer; Family history of mild aortic dilation in daughterStart: 09-19-2024 End: 58-20-2250vvsqtrullhIQLHZWQS TSAIFacility:[facility] HospitalStart: 09-18-2024 End: 56-27-0313Ybgtyabsq encounterVera Najera MD Work Phone: Cancer Appts MCComment on above:Future Appointment Start: 09-18-2024 End: 08-68-6322hoomgwkcebClbbq 19 [place] Work Phone: Hematology/OncologyComment on above:Other systemic lupus erythematosus with other organ involvement (HCC) (Primary Dx)Refill RequestStart: 09-07-2024 End: 39-87-2594Lyhfks-up encounterVaibhav Carvalho APRN.CNP Work Phone: Hematology/OncologyComment on above:ResultsStart: 09-06-2024 End: 32-31-0903Txsexcu encounter Gamal Kagn MD-[facility] Pain Mgmt Work Phone: Start: 09-06-2024 End: 67-32-2727Luncfdmbw encounterFearnaldo Samuel RNHematology/OncologyComment on above:Medication Preauthorization; AppointmentStart: 09-06-2024 End: 40-02-9010jbvznqekgvNzwvt 3 [place] Work Phone: Hematology/OncologyComment on above:Frequent infections (Primary Dx); Hypogammaglobulinemia (HCC); Bilateral leg weakness; Discoid lupus erythematosus; Elevated sed rate; Megaloblastic anemia due to vitamin B12 deficiencyStart: 09-06-2024 End: 09-36-3597Qukqej outpatient visit 25 minutesVaibhav Carvalho APRN.CNP Work Phone: Hematology/OncologyComment on above: Hypogammaglobulinemia (HCC) (Primary Dx); Vitamin B12 deficiency; Other iron deficiency anemia; Megaloblastic anemia due to vitamin B12 deficiencyStart: 09-06-2024 End: 12-41-9474gaiytrbbqsPMPRV ABHYANKARFacility:[facility] Hospitaltart: 09-04-2024 End: 14-60-0032Hfcpvc outpatient visit 25 minutesGordo Barfield MD Work Phone: [facility]KComment on above:Thyroid nodule (CMS/HCC) (Primary Dx); LPRD (laryngopharyngeal reflux disease)Start: 09-04-2024 End: 18-36-2690rdcsiqdyjfTTZASX H TIMMISNot AvailableStart: 09-04-2024 End: 35-01-7184Alxgkr flowsheetGordo Barfield MD Work Phone: noms ENT NORWALKStart: 09-04-2024 End: 02-03-3171Vytjeb flowsFanta Barfield MD Work Phone: noms ENT NORWALKStart: 09-01-2024 End: 79-55-7711QexqtjClnedldc Tsai MD Work Phone: RheumatologyComment on above:Refill RequestStart: 08-29-2024 End: 38-05-2275lwkhjzztbaAUVCCBY M HOYFacility:[facility] Hospitaltart: 08-28-2024 End: 90-30-3888Ifymaljug encounterVaibhav Carvalho APRN.CNP Work Phone: Hematology/OncologyComment on above:Lab OrdersStart: 08-24-2024 End: 13-11-2179Pzujrmjcv Result EncounterGordo Barfield MD Work Phone: noms External Department UnsolicitedStart: 08-24-2024 End: 97-95-2209Jkcfgncil Result EncounterGordo Barfield MD Work Phone: noms External Department UnsolicitedStart: 08-22-2024 End: 96-66-1555bknxkkahkeWbnfxv Sue Cramer FLAT SHEET MAKER-C Work Phone: [facility] Work Phone: Start: 08-22-2024 End: 33-99-8832Fvqpkaz encounter procedureGay De La Torre FLAT SHEET MAKER-C Work Phone: [facility] Work Phone: Start: 08-17-2024 End: 74-15-0168Bdqikhwag PharmacyCalhugo Quintanilla [facility] Specialty PharmacyComment on above:SPP Inflammatory Conditions - Medication Refill (Benlysta)Start: 08-08-2024 End: 31-40-4612Rohkadzdl encounterFearnaldo Samuel RNHematology/OncologyComment on above:Patient QuestionStart: 08-08-2024 End: 51-74-7693wfmsxbhtxcMuoth Quinn Seo Work Phone: Hematology/OncologyComment on above:Elevated sed rate (Primary Dx); Megaloblastic anemia due to vitamin B12 deficiency; Frequent infections; Hypogammaglobulinemia (HCC); Bilateral leg weakness; Discoid lupus erythematosusStart: 08-03-2024 End: 51-36-6104FrtfliEofg Rozman PA-C Work Phone: OtolaryngologyComment on above:Med Change Request Start: 07-31-2024 End: 27-53-4821ynaqvvlxtaZjjgzs Sue Cramer NP-C Work Phone: [facility] Work Phone: Start: 07-31-2024 End: 47-64-7615Yddklid encounter procedureGay LINC Work Phone: [facility] Work Phone: Start: 07-26-2024 End: [id number] outpatient visit 25 minutesLois Holm MD Work Phone: [facility] HospitalComment [facility] above:Sinus tachycardia (Primary Dx); Shortness of breath; Paroxysmal supraventricular tachycardia (CMS-HCC); Essential hypertension; Obstructive sleep apnea syndrome; Morbid obesity (Multi); Current smokerStart: 07-26-2024 End: [id number] M [facility] AmbulatoryStart: 07-25-2024 End: 49-24-9694Wuyxvu flowsheetEmjennifer English MD Work Phone: [facility] DERMStart: 07-25-2024 End: 80-58-1611Bmvnwp flowsheetEmjennifer English MD Work Phone: [facility] DERMStart: 07-25-2024 End: 01-80-6029Yevrhq outpatient visit 25 minutesEmjennifer English MD Work Phone: noms [facility] DERMComment on above:Hidradenitis suppurativa (Primary Dx); Other seborrheic dermatitis; Lupus erythematosus tumidus (CMS/HCC); Rash and other nonspecific skin eruption; Capillary angioma; Neoplasm of uncertain behavior of skinStart: 07-25-2024 End: 96-85-7864Kvxrcsemw PharmacyCalhugo Quintanilla [facility] Specialty PharmacyComment on above:SPP Inflammatory Conditions - Medication Refill (Benlysta)Start: 07-20-2024 End: 46-89-9319Swrgzwlzjatu consultation with Mich Victoria DO Work Phone: Infectious DiseaseStart: 07-20-2024 End: 96-27-5379ivqajulfnnIuasnxw Lehman DO Work Phone: Infectious DiseaseComment on above:Nipple discharge (Primary Dx); Other systemic lupus erythematosus with other organ involvement (HCC); On prednisone therapy; Long-term use of PlaquenilStart: 50-49-4189Igz-patient / Non-visitGay De La Torre FLAT SHEET MAKER-C Work Phone: [facility] Pain [facility] Work Phone: Start: 07-19-2024 End: 66-23-3674Iyvktfmto to same day surgery ashvilleGay De La Torre FLAT SHEET MAKER-C Work Phone: [facility] Work Phone: Start: 07-19-2024 End: 09-73-7227onechjwxxeTfdhug Sue Cramer FLAT SHEET MAKER-C Work Phone: [facility] Work Phone: Start: 07-12-2024 End: 44-13-7002afglxxyfjcUMSA ROZMANFacility:[facility] Hospitaltart: 07-12-2024 End: 33-68-1548Msvbkfr encounter procedurePatennille Gasac PA-C Work Phone: OtolaryngologyComment on above:LPRD (laryngopharyngeal reflux disease); Dry mouth; Current smoker; Abnormal mouth sensationStart: 07-11-2024 End: 70-92-4462aujrepmmcgLejxt 3 Shorter Work Phone: Hematology/OncologyComment on above:Elevated sed rate (Primary Dx); Megaloblastic anemia due to vitamin B12 deficiency; Frequent infections; Hypogammaglobulinemia (HCC); Bilateral leg weakness; Discoid lupus erythematosusStart: 07-10-2024 End: 31-72-6884mbitjmtjabVbukmtbqxPomerene Hospital Work Phone: Start: 07-10-2024 End: 11-61-7994Megsafx encounter procedureEdy [facility] Work Phone: Start: 07-09-2024 End: 96-08-2842Bdgtkeucv encounterLynne Ni MD Work Phone: RheumatologyComment on above:ResultsStart: 06-30-2024 End: 91-78-0242sobytgwgezTFEARRZM TSAIFacility:[facility] Hospitaltart: 06-29-2024 End: 56-71-3672Uadarcjcz PharmacyCalhugo Quintanilla [facility] Specialty PharmacyComment on above:SPP Inflammatory Conditions - Medication Refill (Benlysta)Start: 06-20-2024 End: 28-47-9476ryuknydssgVjj ProviderCancer Appts MCComment on above:Iron InfusionsStart: 06-20-2024 End: 47-68-8519R-mail encounter from caregiverCcf ProviderCancer Appts MCStart: 06-20-2024 End: 56-98-7524Myfucew encounter procedureLynne Ni MD Work Phone: RheumatologyComment on above:FlairStart: 06-16-2024 End: 21-08-6317Ivyqgxoyg encounterJaanil Carvalho APRN.SINGLE POINTED OPERATOR Work Phone: Hematology/OncologyStart: 06-15-2024 End: 55-31-3043Gyvwaynsw encounterOly WARREN Work Phone: NOMS BCP OBStart: 06-14-2024 End: 03-17-9448Usesadieu Result EncounterOly WARREN Work Phone: noms External Department UnsolicitedStart: 06-14-2024 End: 17-68-4013Jjwdckcju Result EncounterOly WARREN Work Phone: noms External Department UnsolicitedStart: 06-14-2024 End: 33-78-1201Zymaenv evaluation of patient and reportBreath Test Silverio Cp Nsg Wl Work Phone: [facility] Comment on above:Diarrhea, unspecified type (Primary Dx); Abdominal pressureStart: 06-13-2024 End: 93-03-2691Xlqpci outpatient visit 25 minutesVaibhav Carvalho APRN.TRUE Work Phone: Hematology/OncologyComment on above:Megaloblastic anemia due to vitamin B12 deficiency (Primary Dx); Hypogammaglobulinemia (HCC); Positive blood cultures; Malaise and fatigue; SOB (shortness of breath)Start: 06-13-2024 End: 97-44-9144uxnobsdtvkIuir M Freeman Art TherapistArts & MedicineComment on above:Art TherapyElevated sed rate (Primary Dx); Megaloblastic anemia due to vitamin B12 deficiency; Hypogammaglobulinemia (HCC); Frequent infections; Bilateral leg weakness; Discoid lupus erythematosusStart: 06-12-2024 End: 98-82-1901KjfebKenmore Hospital Main Work Phone: NeurologyComment on above:CMNStart: 06-12-2024 End: 60-58-3622Dxmhtvmee encounterVaibhav Carvalho APRN.SINGLE POINTED OPERATOR Work Phone: Hematology/OncologyComment on above:Lab OrdersStart: 06-06-2024 End: 48-45-5477Htfets flowsSalbador WARREN Work Phone: noms BCP OBStart: 06-06-2024 End: 34-71-9632Gjvgih flowsheetOly WARREN Work Phone: noms BCP OBStart: 06-06-2024 End: 05-06-7595Bkpryftwz Result EncounterOly WARREN Work Phone: noms External Department UnsolicitedStart: 06-06-2024 End: 16-84-7750Knrmldjjm PharmacyCalhugo Quintanilla [facility] Specialty PharmacyComment on above:SPP Inflammatory Conditions - Medication Refill (Benlysta)Start: 06-06-2024 End: 85-12-5389Nqbtozt encounter procedureAmy Temo WARREN Work Phone: [facility] Work Phone: Start: 06-06-2024 End: 54-18-8871Bfhnrflf preventive med est patient 40-64yrsAmy Temo WARREN Work Phone: NOHV BCP OBComment on above:Well woman exam with routine gynecological exam; Breast cancer screening by mammogram; Breast noduleStart: 05-19-2024 End: 47-65-2864rmiamyqpieIrbwt 3 Gabbi Work Phone: Hematology/OncologyComment on above:Frequent infections (Primary Dx); Megaloblastic anemia due to vitamin B12 deficiency; Elevated sed rate; Hypogammaglobulinemia (HCC); Bilateral leg weakness; Discoid lupus erythematosusStart: 05-16-2024 End: 69-19-2517Futyhm Glenn Carvalho APRN.CNP Work Phone: Hematology/OncologyStart: 05-15-2024 End: 10-94-0891Exiyie WorkLorgodwin Jaime WHematology/OncologyStart: 05-12-2024 End: 24-03-2575Qzlzaotxy PharmacyCalhugo Quintanilla [facility] Specialty PharmacyComment on above:SPP Inflammatory Conditions - Medication Refill (Benlysta)Start: 04-28-2024 End: 63-33-0611Juwhla OnlyTraci Vahe LPNProMedica Physicians Jobst Vascular Comment on above:Peripheral vascular disease, unspecified (CMS-HCC) (Primary Dx); Cold extremities; Systemic lupus erythematosus (CMS-HCC)Start: 04-26-2024 End: 61-05-0717Gmhffpqfx Result EncounterMohamed Teresa Arciniega MD Work Phone: ABWN External Department UnsolicitedStart: 04-26-2024 End: 53-93-8704Krhzwaipb Result EncounterMohamed Teresa Arciniega MD Work Phone: RBCR External Department UnsolicitedStart: 04-26-2024 End: 28-27-0354eihqqdygkyUQTFA ABHYANKARFacility:[facility] Hospitaltart: 04-26-2024 End: 50-20-2081Fnpsses evaluation of patient and reportMa Nurse Sawyer Marshall Work Phone: Hematology/OncologyComment on above:Elevated sed rate (Primary Dx); Megaloblastic anemia due to vitamin B12 deficiencyStart: 04-14-2024 End: 64-08-3475Wnztkjyum encounterNortWestbrook Medical Center [facility] Work Phone: [facility] Comment on above:Patient Update; AppointmentStart: 04-11-2024 End: 72-29-9672Qhlslrjxu PharmacyCalhugo Quintanilla [facility] Specialty PharmacyComment on above:SPP Inflammatory Conditions - Medication Refill (Benlysta)Start: 04-10-2024 End: 49-33-8137Svmyfc flowsFanta Barfield MD Work Phone: noms ENT NORWALKStart: 04-10-2024 End: 37-35-4036Owvnru flowsheetGordo Barfield MD Work Phone: noms ENT NORWALKStart: 04-10-2024 End: 65-20-3898Dvcafahnp encounterVera Najera MD Work Phone: Cancer Appts MCComment on above:AppointmentStart: 04-10-2024 End: 63-07-4631Plqvas outpatient visit 25 minutesHijorge l Barfield MD Work Phone: noms [facility]ILL HOSPITALKComment on above:LPRD (laryngopharyngeal reflux disease) (Primary Dx); Acute otalgia, rightStart: 04-10-2024 End: 19-94-3036wtmcwfgwakIJZZTH H TIMMISNot AvailableStart: 04-07-2024 End: 51-36-8546Lgpwkaalw Result EncounterCorey Skip DO Work Phone: noms External Department UnsolicitedStart: 04-07-2024 End: 01-77-1766Tmpbnbvxk Result EncounterCorey Skip DO Work Phone: noms External Department UnsolicitedStart: 04-07-2024 End: 38-77-1464Qyykbl WorkLorgodwin Jaime WHematology/OncologyStart: 04-06-2024 End: 16-71-5195Wnncbdcdv Result EncounterOly WARREN Work Phone: noms External Department UnsolicitedStart: 04-06-2024 End: 55-74-7625Ckzupvaer Result EncounterOly Temo WARREN Work Phone: noms External Department UnsolicitedStart: 04-06-2024 End: 00-35-3200Bfnolb outpatient new 30 minutesMohamanatoliy Arciniega MD Work Phone: [phone] SurgeryComment on above:Systemic lupus erythematosus (CMS-HCC) (Primary Dx); Cold extremities; Pain of lower extremity, unspecified laterality; Rheumatoid arthritis, involving unspecified site, unspecified whether rheumatoid factor present (CMS-HCC); Current smoker; Raynaud's disease without gangreneStart: 04-03-2024 End: 48-56-3102HjmpaySztc J Bruner DO Work Phone: noms SWS FM 230Comment on above:Oral thrush (Primary Dx)Start: 04-02-2024 End: 18-16-2186Ldtktqxln encounterLynne Ni MD Work Phone: RheumatologyComment on above:ResultsStart: 04-02-2024 End: 61-99-3205Cqdcdw outpatient visit 25 minutesMarky Nichols DO Work Phone: noMS SWS UCComment on above:Oral thrush (Primary Dx) Start: 04-02-2024 End: 76-10-3861bqdraqfvaoCOFY J BRUNERNot AvailableStart: 03-31-2024 End: 65-40-6201Hcfbm [facility] Main Work Phone: NeurologyComment on above:CMNStart: 03-30-2024 End: 57-37-7420wygavzwgjkStdzyd Tabbaa MD Work Phone: [facility] Start: 03-27-2024 End: 67-99-6933ccbqmxkmfnGrdwsNhan Najera MD Work Phone: Hematology/OncologyComment on above:Megaloblastic anemia due to vitamin B12 deficiency (Primary Dx); High total serum IgM; JOSE RAFAEL (obstructive sleep apnea); Elevated sed rate; Hypogammaglobulinemia (HCC); Frequent infectionsStart: 03-27-2024 End: 08-82-0845Uxtccfjxhjpi consultation with Treasure Najera MD Work Phone: Hematology/OncologyStart: 03-27-2024 End: 74-72-4783niytubeymhJZUWB ABHYANKARFacility:[facility] Hospitaltart: 03-23-2024 End: 27-54-8415Qfdtbz outpatient visit 15 minutesOly WARREN Work Phone: noms BCP OBComment on above:Abnormal uterine bleeding (AUB); Menorrhagia with regular cycleStart: 03-23-2024 End: 44-71-6228Pzaocp flowsSalbador WARREN Work Phone: noms [facility] OBStart: 03-23-2024 End: 56-45-3116Lbaoby Ganesh WARREN Work Phone: noms [facility] OBStart: 03-23-2024 End: 64-83-0958Yfgpxgq evaluation of patient and reportMa Nurse Sawyer Marshall Work Phone: Hematology/OncologyComment on above:Elevated sed rate (Primary Dx); Megaloblastic anemia due to vitamin B12 deficiencyStart: 03-20-2024 End: 70-80-7933Plrryhcjc encounterAkiko Cooper MD Work Phone: [facility] Start: 03-18-2024 End: 84-44-2471Rolaaae encounter Florentino Ni MD Work Phone: RheumatologyComment on above:Other systemic lupus erythematosus with other organ involvement (HCC) (Primary Dx); Fibromyalgia; CHRISTIAN positive; EDS (Emanuel-Danlos syndrome); Elevated sed rate; Vitamin D deficiency; Secondary osteoarthritis of multiple sites; Chronic bilateral low back pain with bilateral sciatica; Chronic pain of toes of both feet; Long-term use of high-risk medication; 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; Bilateral hand pain; Systemic lupus erythematosus, unspecified SLE type, unspecified organ involvement status (HCC); Vitamin B12 deficiency; Discoid lupus erythematosusStart: 03-18-2024 End: 67-54-5582Pifslhbnoiaa consultation with patientLynne Ni MD Work Phone: RheumatologyStart: 03-17-2024 End: 38-47-7616DgzbpkKhjkskoz Tsai MD Work Phone: RheumatologyComment on above:Refill RequestStart: 03-16-2024 End: 05-77-0335Hxuwci flowsheetCorey Skip DO Work Phone: noms BCP OBStart: 03-16-2024 End: 71-75-2451Hegbme flowsheetCorey Skip DO Work Phone: noms BCP OBStart: 03-16-2024 End: 40-65-0323Kyllsv outpatient visit 15 minutesCorey Skip DO Work Phone: noms BCP OBComment on above:Nipple dischargeStart: 03-16-2024 End: 88-59-0252iiekloskmfXP-C Gay De La Torre Work Phone: [facility] Work Phone: Start: 03-16-2024 End: 96-71-7919Nxvmepj encounter procedureNP-C Gay De La Torre Work Phone: [facility] Gastroenterology Work Phone: Start: 03-13-2024 End: 95-16-3052Weigqezsa PharmacyCalhugo Quintanilla [facility] Specialty PharmacyComment on above:SPP Inflammatory Conditions - Medication Refill (Benlysta - NCA 09/2024)Start: 03-08-2024 End: 83-95-7638sjtoahcfsaKNNL UK Healthcaretart: 03-07-2024 End: 68-72-3251Jugne [facility] Main Work Phone: NeurologyComment on above:cmnStart: 03-02-2024 End: 83-92-7623DjifobWxilktidfm M Graziani FLAT SHEET MAKER Work Phone: [facility] 210Comment on above:Lumbosacral radiculopathy at L5; Degenerative disc disease, lumbar; Cervical radiculopathy at X6Ashbd: 02-28-2024 End: 15-28-5783azatoaaynxOX-C Gya De La Torre Work Phone: [facility] Work Phone: Start: 02-28-2024 End: 57-56-4567Emurima encounter procedureNP-Ananya De La Torre Work Phone: [facility] Work Phone: Start: 02-22-2024 End: 78-62-9596Kswpmibhk encounterOly Papa [facility] Work Phone: Genetic HealthcareComment on above:High Pressure Cleaner - Other (Eds scheduling)Start: 02-21-2024 End: 14-34-0056Ncirrzq evaluation of patient and reportMa Nurse Sawyer Marshall Work Phone: Hematology/OncologyComment on above:Elevated sed rate (Primary Dx); Megaloblastic anemia due to vitamin B12 deficiencyStart: 02-18-2024 End: 35-85-6632Saohekdzc encounterLynne Ni MD Work Phone: RheumatologyStart: 46-95-6838Gfe-patient / Non-visit WALESKA De La Torre Work Phone: [facility] Work Phone: Start: 02-16-2024 End: 91-54-8075Fxoywidsr to same day surgery centerNP-C Gay Britt Work Phone: [facility] Work Phone: Start: 02-16-2024 End: 16-27-3070resdfsbmgiJA-C Gay De La Torre Work Phone: [facility] Work Phone: Start: 02-15-2024 End: 74-35-8963Oaduqbfvq encounterLexus Heck APRN.CNP Work Phone: NeurologyComment on above:Orders (PAP RX.)Start: 02-14-2024 End: 62-73-1426Xixxmp-up encounterCalhugo Quintanilla [facility] Comment on above:SPP Inflammatory Conditions - Follow-up (Benlysta); Insurance Authorization ([place] Renewal Submitted)Start: 02-14-2024 End: 27-23-5888prmvhreqfbAlffvhhejEris Heck APRN.CNP Work Phone: NeurologyComment on above:JOSE RAFAEL (obstructive sleep apnea) (Primary Dx); Somnolence, daytimeSPP Inflammatory Conditions - Medication Refill (Benlysta - NCA 09/2024)Start: 02-14-2024 End: 32-18-8137Lqtdpkbquhcf consultation with Sara Heck APRN.CNP Work Phone: NeurologyStart: 02-09-2024 End: 59-76-6681Smcsef flowsheetZita Cuellar FLAT SHEET MAKER Work Phone: noms BM NEUROLOGYStart: 02-09-2024 End: 86-24-1691Wytenl flowsNapoleon Cuellar FLAT SHEET MAKER Work Phone: noms BM NEUROLOGYStart: 02-09-2024 End: 32-56-9582Cjho/qhp telephone evaluation - Cesilia Cuellar FLAT SHEET MAKER Work Phone: noms [facility] NEURO 210Comment on above:Lumbosacral radiculopathy at L5 (Primary Dx); Degenerative disc disease, lumbar; Cervical radiculopathy at Q6Cskhl: 02-07-2024 End: 41-97-6306FcajqqRpgfasbtabGil Cuellar NP Work Phone: noms [facility] NEURO 210Comment on above:Autoimmune disease (CMS/HCC); Fibromyalgia; NumbnessStart: 01-28-2024 End: 23-08-1517wwvmhqchecUlqtiom Adilene DO Work Phone: [facility] Work Phone: Comment on above:Blood workStart: 01-28-2024 End: 78-76-1740Ikompir encounter procedureLake [facility] [place] Work Phone: Start: 01-27-2024 End: 55-73-0256Xqqjuocebrpl consultation with Mich Victoria DO Work Phone: Infectious DiseaseStart: 01-27-2024 End: 92-02-3438uywsfohamdRndqncm Lehman DO Work Phone: Infectious DiseaseComment on above:Pseudomonas infection (Primary Dx); Other systemic lupus erythematosus with other organ involvement (HCC); On prednisone therapy; Long-term use of PlaquenilStart: 01-25-2024 End: 54-88-3639Mvnceeu evaluation of patient and reportMa Nurse Sawyer Marshall Work Phone: Hematology/OncologyComment on above:Elevated sed rate (Primary Dx); Megaloblastic anemia due to vitamin B12 deficiencyStart: 01-20-2024 End: 90-15-1038BubeiuLxllspg W Bauer MD Work Phone: noms [facility] NEURO 210Comment on above:Degenerative disc disease, lumbar (Primary Dx); Lumbosacral radiculopathy at H2Ndziw: 01-18-2024 End: 48-37-1028Rbivgtpzd PharmacyAidee Quintanilla [facility] Specialty PharmacyComment on above:SPP Inflammatory Conditions - Medication Refill (Benlysta)Start: 01-12-2024 End: 49-95-9829ootacsdtzpJxakcbbi Tsai MD Work Phone: RheumatologyStart: 01-12-2024 End: 64-54-5768Xeoigai encounter procedureLynne Ni MD Work Phone: RheumatologyComment on above:FlairStart: 12-30-2023 Telephone encounterLynne Ni MD Work Phone: RheumatologyComment on above:ResultsStart: 12-27-2023 Telephone encounterNeda Hill PA-C Work Phone: Hematology/OncologyComment on above:ResultsStart: 12-27-2023 End: 06-08-2346Qbfadzh evaluation of patient and reportMa Nurse Sawyer Marshall Work Phone: Hematology/OncologyComment on above:Elevated sed rate (Primary Dx); Megaloblastic anemia due to vitamin B12 deficiencyStart: 12-27-2023 End: 75-99-3155Cozuxj outpatient visit 15 minutesMinedy Hill PA-C Work Phone: Hematology/OncologyComment on above:Megaloblastic anemia due to vitamin B12 deficiency (Primary Dx); Elevated sed rate; Obstructive sleep apnea syndromeStart: 12-24-2023 End: 76-22-1642oiibwwkxfhZZUTBX [facility] AmbulatoryStart: 12-16-2023 End: 87-07-9379dfoxhygbmpNtcwibgfmCleveland Clinic [facility] Work Phone: Start: 12-16-2023 End: 81-06-6422Yhmuwgo encounter procedureLake [facility] Infectious Disease Work Phone: Start: 54-09-6398Bwfhwnfnj PharmacyCalhugo Quintanilla [facility] Specialty PharmacyComment on above:SPP Inflammatory Conditions - Medication Refill (Benlysta - NCA 09/2024)Start: 11-29-2023 End: 94-51-9230Zcodglz evaluation of patient and reportMa Nurse Sawyer Marshall Work Phone: Hematology/OncologyComment on above:Elevated sed rate (Primary Dx); Megaloblastic anemia due to vitamin B12 deficiencyStart: 47-57-6620dlkvxuswgr Vera Najera MD Work Phone: Hematology/OncologyComment on above:Folic acidStart: 11-18-2023 End: 85-67-1706Hfrpqdkpn Result EncounterCorey Skip DO Work Phone: noms External Department UnsolicitedStart: 11-18-2023 End: 10-46-6407Jeqhbnxqx Result EncounterCorey Skip DO Work Phone: noms External Department UnsolicitedStart: 11-15-2023 Specialty PharmacyCalhugo Quintanilla [facility] Specialty PharmacyComment on above:SPP Inflammatory Conditions - Medication Refill (Benlysta - NCA 09/2024)Start: 88-01-9152QwxlqvGfjhriqg Tsai MD Work Phone: RheumatologyComment on above:Refill RequestStart: 11-04-2023 End: 37-45-2568ngtvwibrkiXpmeyzjanPomerene Hospital Work Phone: Start: 11-04-2023 End: 13-34-1069Varwghf encounter procedureLake [facility] Infectious Disease Work Phone: Start: 10-27-2023 End: 32-21-4019Srmxbte evaluation of patient and reportMa Nurse Sawyer Marshall Work Phone: Hematology/OncologyComment on above:Elevated sed rate (Primary Dx); Megaloblastic anemia due to vitamin B12 deficiencyStart: 55-87-9893eahscdvevnkarissa Ni MD Work Phone: RheumatologyStart: 99-42-5750Ewfcfga encounter procedureLynne Ni MD Work Phone: RheumatologyComment on above:CdiffStart: 10-20-2023 End: 91-82-3651gtixjxgylhEezrazfboPomerene Hospital Work Phone: Start: 10-20-2023 End: 73-66-9393Qpngtxu encounter procedureLake [facility] Infectious Disease Work Phone: Start: 54-50-0675Swwfdarfv PharmacyCalhugo Quintanilla [facility] Specialty PharmacyComment on above:SPP Inflammatory Conditions - Medication Refill (Benlysta)Start: 10-05-2023 End: 25-13-9859Heklume encounter procedureLynne Ni MD Work Phone: RheumatologyComment on above:Other systemic lupus erythematosus with other organ involvement (HCC) (Primary Dx); Elevated sed rate; Fibromyalgia; CHRISTIAN positive; Family history of Crohn's disease; Secondary osteoarthritis of multiple sites; Chronic bilateral low back pain with bilateral sciatica; Chronic pain of toes of both feet; Long-term use of Plaquenil; Long-term use of high-risk medication; 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; Raynaud's disease without gangrene; Bilateral hand pain; History of vitamin D deficiencyStart: 10-05-2023 End: 74-45-5502Mmdmjdipcdjy consultation with patientLynne Ni MD Work Phone: RheumatologyStart: 09-30-2023 End: 61-17-8917Zszczmp evaluation of patient and reportMa Nurse Sawyer Marshall Work Phone: Hematology/OncologyComment on above:Elevated sed rate (Primary Dx); Megaloblastic anemia due to vitamin B12 deficiencyStart: 09-29-2023 End: 05-44-6336Ffoxawfcz Result EncounterZita Cuellar FLAT SHEET MAKER Work Phone: noms External Department UnsolicitedStart: 09-29-2023 End: 33-93-8320Thejmwoyh Result EncounterZita Cuellar NP Work Phone: noms External Department UnsolicitedStart: 09-22-2023 End: 01-44-3338Sqbrxuq encounter procedureFirballad health Physician Group-[facility] Gastroenterology Work Phone: Start: 35-09-3498Sttcrsmlt PharmacyAidee Quintanilla [facility] Specialty PharmacyComment on above:SPP Inflammatory Conditions - Medication Refill (Benlysta)Start: 09-09-2023 End: 05-38-1897pavjevjuieTagmd Abhyankar MD Work Phone: Hematology/OncologyComment on above:Megaloblastic anemia due to vitamin B12 deficiency (Primary Dx); Obstructive sleep apnea syndrome; Chronic fatigue and malaise; High total serum IgM; JOSE RAFAEL (obstructive sleep apnea); Somnolence, daytimeStart: 09-09-2023 End: 87-76-0194Siphmtylgazi consultation with Treasure Najera MD Work Phone: SANDUSKYStart: 03-69-5917Gujwzvpxh encounterLynne Ni MD Work Phone: eumatologyComment on above:ResultsStart: 08-31-2023 End: 02-58-0292Bxklfqh evaluation of patient and reportMa Nurse Sawyer Sand Work Phone: Hematology/OncologyComment on above: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); Elevated sed rateStart: 97-89-2414Llkiubgpm PharmacySelect Medical Ohiohealth Rehabilitation Hospitalhugo Quintanilla [facility] Specialty PharmacyComment on above:SPP Inflammatory Conditions - Medication Refill (Benlysta )Start: 08-05-2023 End: 48-11-6188Zkfxfqt evaluation of patient and reportMa Nurse Sawyer Sand Work Phone: Hematology/OncologyComment on above:Megaloblastic anemia due to vitamin B12 deficiency (Primary Dx); Elevated sed rateStart: 72-91-7132Woa-patient / Non-visitFirballad health Physician Group-[facility] Gastroenterology Work Phone: Start: 88-00-4265wuhvcudygjUckdyk [facility] MAINStart: 07-13-2023 End: 65-51-2900Jtdzqti evaluation of patient and reportMa Nurse Sawyer Sand Work Phone: Hematology/OncologyComment on above:Megaloblastic anemia due to vitamin B12 deficiency (Primary Dx); Elevated sed rateSPP Inflammatory Conditions - Medication Refill (Benlysta ) Start: 07-13-2023 End: 30-44-1718Bpdygb outpatient new 45 Bonnie Holm MD Work Phone: [facility] CenterComment on above:Shortness of breath (Primary Dx); Paroxysmal supraventricular tachycardia; PAC (premature atrial contraction); Current smoker; Systemic lupus erythematosus, unspecified SLE type, unspecified organ involvement status (CMS/HCC); Palpitations; Obstructive sleep apnea syndrome; Morbid obesity (CMS/HCC); Bilateral lower extremity edemaStart: 07-06-2023 End: 47-63-5779Uelanq outpatient visit 25 minutesKade Early MD Work Phone: noms [facility] 210Comment on above:Autoimmune disease (CMS/HCC) (Primary Dx); Autonomic dysfunction; Lumbosacral radiculopathy; Bilateral leg weaknessStart: 07-57-3778Sxokq abstractingKade Early MD Work Phone: noms [facility] 210Start: 06-09-2023 End: 73-15-7783Wsvvix outpatient new 60 minutesFrankselene London Mitali THORPE-SINGLE POINTED OPERATOR Work Phone: [facility] HospitalComment on above:Irregular heart rate (Primary Dx); Essential hypertension; Autonomic dysfunction; Obstructive sleep apnea syndrome; Primary hypertensionStart: 05-26-2023 End: 49-53-6028Zkryxf outpatient visit 40 Sirisha Phan MD Work Phone: Integrated MedicineComment on above:Obesity, Class III, BMI >= 40 (Primary Dx); Other chronic painStart: 04-26-2023 End: 90-07-7042Kldirt outpatient visit 40 Sirisha Phan MD Work Phone: Integrative and Lifestyle MedicineComment on above: Obesity, Class III, BMI >= 40 (Primary Dx); FUO (fever of unknown origin); Other chronic painStart: 92-58-9062bgrgxoywisWbkrgzk Ruff MD Work Phone: Integrative and Lifestyle MedicineComment on above: PhentermineStart: 55-29-0904Izjdrxgdm encounterEnma Hamm RN Hematology/OncologyComment on above:ResultsStart: 04-16-2023 End: 43-86-6517Gudpvnz evaluation of patient and reportMa Nurse Sawyer Sand Work Phone: Hematology/OncologyComment on above:Megaloblastic anemia due to vitamin B12 deficiency (Primary Dx); Elevated sed rateStart: 03-19-2023 End: 59-58-7414Nvdzwlu evaluation of patient and reportMa Nurse Sawyer Sand Work Phone: Hematology/OncologyComment on above:Megaloblastic anemia due to vitamin B12 deficiency (Primary Dx); Elevated sed rateStart: 35-89-4483Xhmlm [facility] Main Work Phone: NeurologyComment on above:CMNStart: 03-11-2023 End: 75-88-0763Zqwqsvg evaluation of patient and reportNurse Holzer Hospitalbharath [facility] Nickie Work Phone: RheumatologyComment on above:Systemic lupus erythematosus, unspecified SLE type, unspecified organ involvement status (HCC) (Primary Dx)Start: 09-91-0885Wrublqfms encounterLynne Ni MD Work Phone: RheumatologyComment on above:Results (Eye Exam)Start: 02-19-2023 End: 40-35-9715Vysqzyy evaluation of patient and reportMa Nurse Sawyer Sand Work Phone: Hematology/OncologyComment on above:Megaloblastic anemia due to vitamin B12 deficiency (Primary Dx); Elevated sed rateStart: 02-19-2023 End: 54-91-3898Ezvecs outpatient visit 15 minutesVera Najera MD Work Phone: Hematology/OncologyComment on above: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); Elevated sed rate; Chronic fatigue and malaise; High total serum IgM; JOSE RAFAEL (obstructive sleep apnea)Start: 83-60-6231ZnmdjnJwpbztya Tsai MD Work Phone: eumatologyComment on above:Refill RequestStart: 02-04-2023 End: 76-59-0137qtxcuzxphjWtabruuc Tsai MD Work Phone: eumatologyComment on above:Other [...] Elevated sed rate; Bilateral wrist pain; 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; Steroid-induced osteoporosis; Raynaud's disease without gangreneStart: 16-27-4295Cmieltk encounter procedure Clinton Schroeder (Pharmacist)[facility] Specialty PharmacyComment on above:SPP Inflammatory Conditions - Treatment Referral (Benlysta); Insurance Authorization (KELVIN martinez)Start: 21-28-4237Xlhtscnlc encounterLynne Ni MD Work Phone: [facility] FacilitymatologyComment on above:Appointment; Orders; Medication AuthorizationStart: 02-04-2023 End: 52-84-2399Mlfbmnheoxuk consultation with Jyothi Ni MD Work Phone: [facility]ITALtart: 02-15-7951EdhtdnHwmqsrb Ruff MD Work Phone: Integrated MedicineComment on above:Refill Request Start: 57-19-2058Oxxtivnpx encounterLynne Ni MD Work Phone: [facility] HospitaltologyComment on above:ResultsStart: 01-22-2023 End: 86-29-5214Vkdpjpn evaluation of patient and reportMa Nurse Sawyer Marshall Work Phone: Hematology/OncologyComment on above:Megaloblastic anemia due to vitamin B12 deficiency (Primary Dx); Elevated sed rateStart: 83-46-5455BgfecuEduardo Najera MD Work Phone: Hematology/OncologyComment on above:Megaloblastic anemia due to vitamin B12 deficiency (Primary Dx); High total serum IgM; Elevated sed rateStart: 01-01-2023 End: 96-32-5856ecwizkdytaWuwyq Patadia MD Work Phone: AllergyComment on above:High total serum IgM (Primary Dx); Low serum IgG for age; Current smokerStart: 01-01-2023 End: 50-86-1325Hsipvpqsktdq consultation with Robson Nelson MD Work Phone: [facility] MAINStart: 53-35-4689Xpvkwo Christie Phan MD Work Phone: Integrated MedicineComment on above:Refill Request Start: 47-75-1162Rsvqvuedb encounterLidia Argueta RN Work Phone: Hematology/OncologyComment on above:Care Coordination (appointment)Start: 12-17-2022 End: 43-94-6422jeeklccqyeTynpfKathy Rojas APRN.CNP Work Phone: Hematology/OncologyComment on above:Megaloblastic anemia due to vitamin B12 deficiency (Primary Dx); Chronic fatigue and malaiseStart: 12-17-2022 End: 74-53-9839Oankqnaarccd consultation with Sonali Rojas APRN.CNP Work Phone: SANDUSKYStart: 51-71-7086Lerxegrdh encounterPamella Bettencourt RN Work Phone: Hematology/OncologyComment on above:AppointmentStart: 24-63-9814objmmnhjfwDtnhxNhan Najera MD Work Phone: Hematology/OncologyComment on above:Test resultsStart: 63-92-5356Pkiiohere encounterNatalie Hamm RNHematology/OncologyComment on above:ResultsStart: 25-94-5125gsdxydkynsSrcdspjk Tsai MD Work Phone: RheumatologyComment on above:updateStart: 11-19-2022 End: 02-42-2774Tuqfghd evaluation of patient and reportMa Nurse Sawyer Marshall Work Phone: Hematology/OncologyComment on above:Megaloblastic anemia due to vitamin B12 deficiency (Primary Dx); Elevated sed rateStart: 10-22-2022 End: 67-70-0807Lhbeoyi evaluation of patient and reportMa Nurse Sawyer Marshall Work Phone: Hematology/OncologyComment on above:Megaloblastic anemia due to vitamin B12 deficiency (Primary Dx); Elevated sed rateStart: 10-22-2022 End: 33-78-1311Paijah outpatient visit 15 minutesVera Najera MD Work Phone: Hematology/OncologyComment on above:Megaloblastic anemia due to vitamin B12 deficiency (Primary Dx); Elevated sed rate; High total serum IgM; Chronic fatigue and malaise; Obstructive sleep apnea syndromeStart: 09-24-2022 End: 02-95-4578ssqrmdvtabDLK RAMEY .Facility:K6Ffhib: 09-24-2022 End: 27-89-2795Rpnhtgx evaluation of patient and reportMa Nurse Sawyer Marshall Work Phone: Hematology/OncologyComment on above:Megaloblastic anemia due to vitamin B12 deficiency (Primary Dx); Elevated sed rateStart: 09-10-2022 End: 70-08-3066fliyjlezofOQ DOUGLAS HOY .Facility:A2Zghak: 55-50-5049Zwabzudku encounterAngelia Washington [facility] Home Delivery - ComplianceComment on above:Compliance AdherenceStart: 09-07-2022 End: 81-39-9789Cswoir outpatient visit 40 minutesChristie Phan MD Work Phone: Integrative and Lifestyle MedicineComment on above: Obesity, Class III, BMI >= 40 (Primary Dx); Polypharmacy; Pre-diabetesStart: 09-01-2022 End: 42-01-2089dpmglqanzsZC MANUEL FERRIS .Facility:H8Ylnhm: 61-46-0119Dbmobqarabella Ni MD Work Phone: RheumatologyComment on above:Refill RequestStart: 08-27-2022 End: 27-35-7679Byxpssa evaluation of patient and reportMa Nurse Sawyer Marshall Work Phone: Hematology/OncologyComment on above:Megaloblastic anemia due to vitamin B12 deficiency (Primary Dx); Elevated sed rateStart: 08-27-2022 End: 94-24-3728sxfadyeubbIicvcKathy Rojas APRN.CNP Work Phone: Hematology/OncologyComment on above:Megaloblastic anemia due to vitamin B12 deficiency (Primary Dx); Elevated sed rate; High total serum IgM; Chronic fatigue and malaise; JOSE RAFAEL (obstructive sleep apnea)Start: 08-27-2022 End: 26-79-0411Uxqitrc encounter Kaley Rojas APRN.CNP Work Phone: SANDUSKYStart: 95-64-5839Dfecwcsfi encounterLynne iN MD Work Phone: RheumatologyComment on above:ResultsStart: 08-15-2022 ambulatoryLynne Ni MD Work Phone: RheumatologyComment on above:updateStart: 08-10-2022 RefillChristie Phan MD Work Phone: [facility] for Integrative MedComment on above:Refill Request Start: 07-27-2022 End: 04-09-8486mcdwwxazklOfgwfmlmqCeci Heck APRN.CNP Work Phone: NeurologyComment on above:JOSE RAFAEL (obstructive sleep apnea) (Primary Dx)Start: 07-27-2022 End: 68-03-8432Flsedqmswtok consultation with Sara Heck APRN.CNP Work Phone: [facility] HILLCRESTStart: 37-86-3631bsnubwjidjXlxhuxea Tsai MD Work Phone: RheumatologyComment on above:Blood workStart: 49-41-5295Qfyktzrtd encounterVera Najera MD Work Phone: Hematology/OncologyComment on above:Orders (Lab Orders Before Appointment)Start: 26-45-8145ogqxokrisoXdkgyk Devnani MD Work Phone: [facility] MAINStart: 20-67-8496Rdldssr encounter procedureLawanda Miranda MD Work Phone: NeurologyComment on above:AppointmentStart: 05-20-2022 End: 13-21-9422Nsznkxe evaluation of patient and reportMa Nurse Sawyer Marshall Work Phone: Hematology/OncologyComment on above:Megaloblastic anemia due to vitamin B12 deficiency (Primary Dx); Elevated sed rateStart: 05-20-2022 End: 00-36-3948ggfsmhjncwOmycz Abhyankar MD Work Phone: Hematology/OncologyComment on above:High total serum IgM (Primary Dx); Elevated sed rate; Somnolence, daytime; JOSE RAFAEL (obstructive sleep apnea)Start: 05-20-2022 End: 10-99-2911Ujkatmb encounter procedureVera Najera MD Work Phone: SANDUSKYStart: 96-24-9042awlcalqubdIrwjgs Devnani MD Work Phone: NeurologyComment on above:CpapStart: 05-05-2022 Telephone encounterCarjan BILLINGSLEYHome Respiratory TherapyComment on above:PAP Therapy Follow UpPAP Rx Faxed (YUNIOR Seo)Start: 28-57-5849Wqxqtigvp encounterNy Lance MD Work Phone: Pediatric GenomicsComment on above:Future Appointment (Scheduling questions/concerns)Start: 75-05-7847Dihagmfcq encounterEliza Licea Research CoordinatorGenetic HealthcareComment on above:Appointment; High Pressure Cleaner - OtherStart: 03-31-2022 End: 79-71-4759pjafvupofeAF DOUGLAS HOY .Facility:P7Hssey: 77-05-0197Svgdja Christie Phan MD Work Phone: [facility] for Integrative MedComment on above:Refill Request Start: 41-56-0857knmvmxflgqRgxfa Patadia MD Work Phone: AllergyComment on above:PneumovaxStart: 19-32-3251O- mail encounter from Dana Nelson MD Work Phone: AMHERSTStart: 76-46-7591Qzoyoiula encounterMisty Nelson MD Work Phone: AllergyComment on above:PneumovaxStart: 03-21-2022 End: 15-08-2115uubwnqqaflDU EL ROSSI .Facility:V3Yhscq: 03-18-2022 End: 26-65-2677dqchkmxgqmFolvf Abhyankar MD Work Phone: Hematology/OncologyComment on above:Megaloblastic anemia due to vitamin B12 deficiency (Primary Dx); High total serum CuUG4yNxuzv: 33-54-5743W-mail encounter from John Phan MD Work Phone: [facility]ST CAMPUSStart: 03-18-2022 End: 07-83-5210Avrjdpj encounter procedureVera Najera MD Work Phone: SANDUSKYStart: 03-12-2022 End: 84-93-4748lkfhrprailBI DOUGLAS HOY .Facility:S1Osxfy: 03-10-2022 End: 84-95-0814cbbskgxcbjBsbqqbj Lehman DO Work Phone: Infectious DiseaseComment on above:resultsRaised level of immunoglobulins (Primary Dx); Wound healing, delayed; Current smokerStart: 68-75-9219T-mail encounter from Jean Victoria DO Work Phone: [facility] MAINStart: 03-10-2022 End: 11-01-5793Qhyaabvjdnvj consultation with Robson Nelson MD Work Phone: AMHERSTStart: 03-09-2022 End: 94-93-4876gtfjdtjbfpMNKQFL CRAMERFacility:D8Rzgsu: 03-09-2022 End: 37-43-4712Cliphx consultation new/estab patient 80 chitraChristie Delon Phan MD Work Phone: [facility] for Integrative MedComment on above:Obesity, Class II, BMI 35-39.9 (Primary Dx); Somnolence, daytime; Chronic fatigue and malaise; Obesity, unspecified classification, unspecified obesity type, unspecified whether serious comorbidity present; Snoring; POTS (postural orthostatic tachycardia syndrome); Elevated glucose; Raised level of immunoglobulinsStart: 32-42-8417Ctzedqnlu encounterMarycaitlin Kelseyjuancarlos LIVE Work Phone: Infectious DiseaseComment on above:Opened In Error Start: 29-17-9894nupiyrxasoEuwevypa Tsai MD Work Phone: RheumatologyComment on above:resultsStart: 03-05-2022 Telephone encounterLynne Ni MD Work Phone: RheumatologyComment on above:ResultsStart: 03-04-2022 End: 82-68-3941dvlnzyjfosApmriNhan Najera MD Work Phone: Hematology/OncologyComment on above:High total serum IgM (Primary Dx); Megaloblastic anemia due to vitamin B12 deficiency; Somnolence, daytime; Snoring; Chronic fatigue and malaise; Obesity, unspecified classification, unspecified obesity type, unspecified whether serious comorbidity presentStart: 03-04-2022 End: 48-93-3049Biqimcb encounter procedureVera Najera MD Work Phone: SANDUSKYStart: 98-18-5990Bycxg abstractReji Najera MD Work Phone: Hematology/OncologyStart: 62-56-5896Nohxwytfq encounterMilena Gandara MD Work Phone: Infectious DiseaseComment on above:Opened In Error Start: 02-24-2022 End: 07-49-1312njytukatodMpotntu Lehman DO Work Phone: Infectious DiseaseComment on above:Swelling of lymph nodes (Primary Dx); Other systemic lupus erythematosus with other organ involvement (HCC); On prednisone therapy; Hair loss; Bilateral sacroiliitis (HCC); Long-term use of PlaquenilStart: 02-24-2022 End: 16-52-9969Duqwunlklmnq consultation with Mich Victoria DO Work Phone: [facility] MAINStart: 02-14-2022 End: 08-85-5113ixzrpigmdyOS MANUEL FERRIS .Facility:X9Yvanc: 11-26-2021 End: 77-87-1360bbirtgvbsyZjuquoc Blank Other [employer] Other Start: 24-39-1958Vpavtw outpatient visit 25 minutes Mirela Odom Infectious DiseaseStart: 11-17-2021 End: 55-18-1037zbdpyldzulNEPrashanth Andersoncility:B2Svavm: 10-24-2021 End: 72-35-8611Mrdufoc encounter procedureLynne Ni MD Work Phone: RheumatologyComment [...] history of Crohn's disease; FibromyalgiaStart: 10-15-2021 End: 87-16-6077wtmnqxwtpnGgcdfqy Blank Other [employer] Other Start: 81-06-6988Oqbbap outpatient visit 25 minutes Mirela Odom Infectious DiseaseStart: 10-03-2021 End: 26-41-2919ibapnoxebwHI MIRELA BLANKFacility:Y9Ifgbq: 09-18-2021 End: 99-03-8759qehkwipgjsReucmsa Blank Other [facility] water Other Start: 03-42-0009Mtmeqxtcd encounterMichael BlankFPG Infectious DiseaseStart: 09-11-2021 End: 00-45-4648ymbohyyavwUkzgdyg Blank Other [facility] Other Start: 83-42-8589Plimzh outpatient new 45 minutes Mirela BaerJOHN Infectious DiseaseStart: 10-07-2020 End: 11-45-7698prgvqpcyyaNWJOZWright-Patterson Medical Centertart: 10-07-2020 End: 59-31-2446Kdjxvvetrq hospital visit by physicianStv Conventional Mortgage Underwriter Rm ASTVZ Cath LabComment on above:ArrivedStart: 09-14-2018 End: 50-39-2868Wjoiljy encounter procedureROBERT [facility] Procedures DateProcedureProcedure DetailPerforming ClinicianStart: 07-78-2185Zs soft tissue head & neck real time imge docJinny Barfield MD Work Phone: Start: 75-16-9488Lfsrq culturePajessea Britt FLAT SHEET MAKER-C Work Phone: Start: 65-55-2650Emvna culturePamela Britt FLAT SHEET MAKER-C Work Phone: Start: 78-41-3899OWBIEBZ Berlin Blum MD Work Phone: Start: 41-98-1598LCHTUKQZG Berlin Blum MD Work Phone: Start: 12-78-0046Stvrkwh of pilonidal cystGay De La Torre FLAT SHEET MAKER-C Work Phone: [phone]-art: 36-40-5569Nsijqzx microbial cultureGay De La Torre FLAT SHEET MAKER-C Work Phone: Start: 91-08-8619Eamp stain microscopyGay De La Torre FLAT SHEET MAKER-C Work Phone: Start: 27-86-3721Waupx cultureGay De La Torre FLAT SHEET MAKER-C Work Phone: Start: 38-99-4824KN Nerve Radio Frequency (Bilateral) Gay De La Torre FLAT SHEET MAKER-C Work Phone: Start: 03-95-7841Hsnqh count complete automated Lynne Ni MD Work Phone: Start: 24-54-2505Rrlye count complete automated Lynne Ni MD Work Phone: Start: 72-52-0971S-reactive proteinLynne Ni MD Work Phone: Start: 04-47-3608Kymhx of gammaglobulin iga igd igg igm eachJaimee Deven CLOTH DYEING RANGE TENDER.SINGLE POINTED OPERATOR Work Phone: Start: 79-37-5139Ww soft tissue head & neck real time imge docmHrima Barfield MD Work Phone: Start: 31-70-4241Tegmmqoel of local anesthetic into sacroiliac jointGay De La Torre FLAT SHEET MAKER-C Work Phone: Start: 64-05-1191FK TOMOSYNTHESIS DIAGNOSTIC LTOly WARREN Work Phone: Start: 76-08-8262RP BREAST LT LIMITEDOly WARREN Work Phone: Start: 40-12-5686Rfmtf count complete auto&auto difrntl wbcJaimee Deven CLOTH DYEING RANGE TENDER.SINGLE POINTED OPERATOR Work Phone: Start: 23-28-0551LAC,APTIMA HPV,AGE GDLNOly WARREN Work Phone: Start: 08-23-0367Ffjqtxyddld observation [Identifier] in Cervix by Cyto stainEmjennifer English MD Work Phone: Start: 03-63-2940Qkdjt count complete auto&auto difrntl wbcVivek Marquis LEE Work Phone: Start: 89-23-1663PEIDSABHX BLOOD PRESSUREMohamed Teresa Arciniega MD Work Phone: Start: 97-89-5504HQ TOMOSYNTHESIS DIAGNOSTIC BICorey Skip DO Work Phone: Start: 28-78-2376LW BREAST BI LIMITEDCorey Skip DO Work Phone: Start: 08-93-1589TN PELVIS W/ TRANSVAGINALAmy Temo WARREN Work Phone: Start: 98-36-7580QdplkxfveiyZefvo Petitti MD Work Phone: Start: 66-50-3511NVW CBC WITH AUTO DIFFOly WARREN Work Phone: Start: 77-77-1960OMZ THYROID STIM HORMONEOly WARREN Work Phone: Start: 18-85-3477HWZ THYROXINE (T4) FREEOly WARREN Work Phone: Start: 21-14-4868MGT APTTAjesenia WARREN Work Phone: Start: 93-24-9866WQL HEMOGLOBIN A1COly WARREN Work Phone: Start: 68-91-2620NGEQKC PROTHROMBIN TIME INR W/O COUM Oly WARREN Work Phone: Start: 51-05-3154MLS PREG QUANT HCGOly WARREN Work Phone: Start: 22-81-8044XocpaiyqzmtUyxzdm Ibrahim MD Work Phone: Start: 03-23-2024 End: 90-30-2526Gqmgq dip stick/tablet rgnt non-auto w/o micrscpAjesenia WARREN Work Phone: Start: 45-11-6118Kftdxbkma of local anesthetic into sacroiliac jointNP-C Gay De La Torre Work Phone: Start: 49-08-6112JW PELVIS W/ TRANSVAGINALCorey Skip DO Work Phone: Start: 04-62-3274VNM DEHYDROEPIANDROSTERONECorey Skip DO Work Phone: Start: 09-54-0959UZA DHEA SULFATECorey Skip DO Work Phone: Start: 26-30-7616NUJ FOLLICLE STIMULATING HORMONECorey Skip DO Work Phone: Start: 86-96-0506GKS LUTEINIZING HORMONECorey Skip DO Work Phone: Start: 14-67-5529HHP PROLACTINCorey Skip DO Work Phone: Start: 48-32-7128VG LUMBAR SPINE MIN 4VJacqueline M Graziani FLAT SHEET MAKER Work Phone: Start: 99-54-9397YC THORACIC SPINE 3VJacqueline M Graziani FLAT SHEET MAKER Work Phone: Start: 67-66-5474Kqo routine ecg w/least 12 lds w/i&r Lois Holm MD Work Phone: Start: 30-28-1405Jjm routine ecg w/least 12 lds w/i&r Michelle Jasmine CLOTH DYEING RANGE TENDER-SINGLE POINTED OPERATOR Work Phone: Start: 84-78-1076Tfycjqefhea observation [Identifier] in Cervix by Cyto stainCorey Skip DO Work Phone: Start: 82-42-8375Zfym cerv/vag auto thin layer prep mnl screenCorey Skip DO Work Phone: Start: 10-07-2020 End: 73-56-4402Yvwtpmj catheterizationJonas Black MD Work Phone: Start: 28-97-2863Kmfwnqdy [Moles/volume] in Serum or PlasmaJonas Black MD Work Phone: Start: 38-76-7727PAINAOVCTC W/GFR POINT OF CAREJonas Black MD Work Phone: Start: 10-07-2020 End: 29-28-3108Albo bld gluc mntr dev cleared fda spec home useJonas Black MD Work Phone: Start: 52-53-4236Fsotdkdfo [Moles/volume] in Serum or PlasmaJonas Black MD Work Phone: Start: 01-27-0279Hbqpii [Moles/volume] in Serum or PlasmaJonas Black MD Work Phone: Start: 39-58-5411Hogvp test visual color cmprsn methsAfabricio Black MD Work Phone: Start: 02-45-2807Wduhc foot complete minimum 3 views VICTOR MANUEL GUZMAN Plan of Treatment DateCare ActivityDetailAuthorStart: 17-51-7841Yftokcith for malignant neoplasm of cervixNOMS HealthcareStart: 07-79-7097Supoimgoq for malignant neoplasm of cervixNOMS HealthcareStart: 50-47-2567Uyqkakqdr for malignant neoplasm of cervix Pap SmearTrumbull Memorial Hospital SystemStart: 07-26-2025 End: 08-43-3526Rbdqmwi encounter yyjtcfoyt41/05/2026 11:00 AM EST Office Visit [facility] [address] [facility] [address] [place] [address] Lois Holm MD [address] [facility] [address] [place] [address] [facility]Start: 07-25-2025 End: 12-50-7907Kxnnyym encounter procedureNOMS SWS DERMStart: 06-21-2025 End: 45-72-7960Hiayfzl encounter hgzbiywip08/29/2026 8:00 AM EST Office Visit [facility] [address] [place] [address] Kade Early MD [address] [facility] [address] [phone] [facility] NeurologyStart: 04-20-2025 End: 632992-aptypmedlziqpy D3 [Mass/volume] in Serum or PlasmaVITAMIN D 25 HYDROXY Lab Routine Vitamin D deficiency Expected: 04/20/2025 (Approximate), Expires: 01/18/2026leveland ClinicComment on above:Expected: 04/20/2025 (Approximate), Expires: 01/18/2026Start: 04-20-2025 End: 01-18-2026 reactive protein [Mass/volume] in Serum or PlasmaC-REACTIVE PROTEIN Lab Routine Elevated C-reactive protein (CRP) Elevated sed rate Expected: 04/20/2025 (Approximate), Expires: 01/18/2026leveland ClinicComment on above:Expected: 04/20/2025 (Approximate), Expires: 01/18/2026Start: 04-20-2025 End: 97-86-7057QFC panel - Blood by Automated countCOMPLETE BLOOD COUNT Lab Routine Anemia of chronic disease Expected: 04/20/2025 (Approximate), Expires: 01/18/2026leveland ClinicComment on above:Expected: 04/20/2025 (Approximate), Expires: 01/18/2026Start: 04-20-2025 End: 17-21-1487Lfchiuodkniih metabolic 2000 panel - Serum or PlasmaCOMPREHENSIVE METABOLIC PANEL Lab Routine Elevated LFTs Expected: 04/20/2025 (Approximate), Expires: 01/18/2026[facility] Work Phone: Comment on above:Expected: 04/20/2025 (Approximate), Expires: 01/18/2026Start: 04-20-2025 End: 28-17-1766Rbmldvqibub sedimentation rateSEDIMENTATION RATE, WESTERGREN Lab Routine Elevated C-reactive protein (CRP) Elevated sed rate Expected: 04/20/2025 (Approximate), Expires: 01/18/2026leveland ClinicComment on above:Expected: 04/20/2025 (Approximate), Expires: 01/18/2026Start: 04-09-2025 End: 58-93-4120Kjxqvfz encounter /17/2025 9:30 AM EST Office Visit [facility] [address] [place] [phone] Terence Blum MD [address] [address] [facility] AssociatesStart: 04-07-2025 Screening for malignant neoplasm of breastMammogramNOMS HealthcareStart: 00-58-7011Kryns BMI ScreeningAdult BMI ScreeningProToledo Hospitalca Med[facility] Hospital SystemStart: 61-48-8036Iapfqktsr for malignant neoplasm of breastMammogramSt. Vincent HospitalStart: 90-35-8821Wuxmoxd ScreeningTobacco Screening ProMWorthington Medical Center SystemStart: 04-02-2025 End: 73-55-5383Wzcoqaj encounter lfdcjzdti31/10/2025 1:20 PM EST Office Visit [facility] [address] [place] [phone] Oly Plascencia PA [address] [place] [address] M[facility] COLEMANtart: 03-23-2025 End: 18-57-2010Ckusgdy encounter wlebwnqnq11/31/2025 11:30 AM EDT Office [facility] [address] [place] [phone] Terence Blum MD [address] [address] [facility] AssociatesStart: 03-23-2025 End: 57-61-6315Rakcgpe encounter orgmrcydp88/31/2025 9:45 AM EDT Office [facility] [address] [place] [phone] Terence Blum MD [address] [phone] [facility] AssociatesStart: 03-19-2025 End: 16-49-1853Dyyrqcc encounter procedureNOMS ENT NORWALKStart: 03-17-2025 Diabetes mellitus screeningDiabetes [facility] Start: 03-14-2025 End: 34-87-8402Zpasfedzk culture and sensitivityOhiohealth Doctors Hospital SystemComment on above:Expected: 03/14/2025, Expires: 03/14/2026Start: 90-12-8683Evhlv culture [facility] Centertart: 11-08-6990Fpgjatbg identified in Urine by CultureUrine Madison Healthtart: 16-99-9226Kkhcc cultureMain Campus Medical Centertart: 72-70-1459Ymzfotlt identified in Urine by CultureUrine [facility] Healthtart: 03-02-2025 End: 68-75-9181JbamyedyiMain Campus Medical Centertart: 58-46-7549Tbupbfz Culture Aerobic [facility]althtart: 29-56-0753Ycceoejgd CultureAnaerobic [facility] Healthtart: 03-02-2025 Anaerobic microbial cultureAnaMarion Hospital Start: 96-25-8673Toxahboxped observation [Identifier] in Unspecified specimen by Gram stainMain Campus Medical Centertart: 39-64-7133Wnwjt culture [facility] Centertart: 19-57-4854Enewrpjx identified in Urine by CultureUrine Madison Healthtart: 02-21-2025 End: 36-07-1573itvgfenqbzErdkttyggd/OncologyComment on above:3 mo F/U-IVIGStart: 02-21-2025 End: 95-42-2928Bizflhu encounter ulqdjwwkz20/01/2025 8:45 AM EDT Office Visit [facility] Laboratory [address] [place] [address] 3 mo F/U-IVIGNortCorewell [facility] Comment on above:3 mo F/U-IVIGStart: 02-14-2025 End: 36-96-2522Gnjyybv encounter mvpkevduv73/24/2025 3:20 PM EDT Office Visit [facility] [address] [place] [phone] Bernabe English MD [address] [place] [address] ArrivedMS Seo DermatologyComment on above:ArrivedStart: 02-08-2025 End: 86-26-1491rfyalsjkrq38/18/2025 2:00 PM EDT Infusion Center Hematology/Oncology [address] [place] [address] [place] [address] BENLYSTA -Hematology/OncologyComment on above:BENLYSTA -Start: 21-91-1397CkuxbwdyzMain Campus Medical Centertart: 01-24-2025 End: 06-51-3252qukgswvsydMyozedbicz/OncologyComment on above:IVIG q4 weeks IVIG(5hours) q4 weeksStart: 97-17-4646GFUBM-19 Vaccine ( season) COVID-19 Vaccine ( season)[facility] HealthcareStart: 80-93-4601AYCVL-19 VACCINE ( season)COVID-19 VACCINE ( season)[facility] Hospitaltart: 16-95-7861Uqrmoztyd vaccinationTIMPANOGOS REGIONAL HOSPITAL HealthcareStart: 01-06-2025 End: 656732-nhlhnfxzbnrlly D3 [Mass/volume] in Serum or PlasmaVITAMIN D 25 HYDROXY Lab Routine Vitamin D deficiency Expected: 01/06/2025 (Approximate), Expires: 10/06/2025[facility] ClinicComment on above:Expected: 01/06/2025 (Approximate), Expires: 10/06/2025Start: 01-06-2025 End: 48-19-7193FOYQI TB SCREENBLOOD TB SCREEN Lab Routine Screening-pulmonary TB Expected: 01/06/2025 (Approximate), Expires: 10/06/2025[facility] ClinicComment on above:Expected: 01/06/2025 (Approximate), Expires: 10/06/2025Start: 01-06-2025 End: 10-06-2025 reactive protein [Mass/volume] in Serum or PlasmaC-REACTIVE PROTEIN Lab Routine Elevated sed rate Elevated C-reactive protein (CRP) Expected: 01/06/2025 (Approximate), Expires: 10/06/2025[facility] ClinicComment on above:Expected: 01/06/2025 (Approximate), Expires: 10/06/2025Start: 01-06-2025 End: 71-17-4876SHC panel - Blood by Automated countCOMPLETE BLOOD COUNT Lab Routine Anemia of chronic disease Expected: 01/06/2025 (Approximate), Expires: 10/06/2025[facility] ClinicComment on above:Expected: 01/06/2025 (Approximate), Expires: 10/06/2025Start: 01-06-2025 End: 91-43-6297Ocsuxoz hepatitis differentiation between hepatitis B and C virus panel - Serum or PlasmaHEP REMOTE PANEL BL Lab Routine Elevated LFTs Expected: 01/06/2025 (Approximate), Expires: 10/06/2025[facility] ClinicComment on above: Expected: 01/06/2025 (Approximate), Expires: 10/06/2025Start: 01-06-2025 End: 44-59-8764Uretuntus (Vitamin B12) [Mass/volume] in Serum or PlasmaVITAMIN B12 Lab Routine Vitamin B12 deficiency Expected: 01/06/2025 (Approximate), Expires: 10/06/2025[facility] ClinicComment on above:Expected: 01/06/2025 (Approximate), Expires: 10/06/2025Start: 01-06-2025 End: 18-71-8655Zohotfbzsyyxz metabolic 2000 panel - Serum or PlasmaCOMPREHENSIVE METABOLIC PANEL Lab Routine Elevated LFTs Expected: 01/06/2025 (Approximate), Expires: 10/06/2025[facility] Work Phone: Comment on above:Expected: 01/06/2025 (Approximate), Expires: 10/06/2025Start: 01-06-2025 End: 78-31-7559Bjytbgwfpso sedimentation rateSEDIMENTATION RATE, WESTERGREN Lab Routine Elevated sed rate Elevated C-reactive protein (CRP) Expected: 01/06/2025 (Approximate), Expires: 10/06/2025[facility] ClinicComment on above:Expected: 01/06/2025 (Approximate), Expires: 10/06/2025Start: 12-27-2024 End: 17-56-2361mbsqzexkmb52/06/2025 9:00 AM EDT Infusion Center Hematology/Oncology [address] [place] [place] [address] IVIG q4 weeksHematology/OncologyComment on above:IVIG q4 weeksStart: 12-14-2024 End: 66-68-0467oraqfcnhbu75/24/2025 2:00 PM EDT Infusion Center Hematology/Oncology [address] [place] [address] [place] [address] BENLYSTA -Hematology/OncologyComment on above:BENLYSTA -Start: 11-29-2024 End: 81-53-4971mpubxxeohcZzbkvebuvp/OncologyComment on above:3 mo F/U-IVIG(slow infusion per pt request/B12 +/-IV iron labStart: 11-29-2024 End: 42-08-8849Llzeszh encounter srpebmgnh74/09/2025 8:45 AM EDT Office Visit [facility] Laboratory [address] [place], [place] [address] [address] 3 mo F/U-IVIG(slow infusion per pt request/B12 +/-IV iron lab [facility] LaboratoryComment on above:3 mo F/U- IVIG(slow infusion per pt request/B12 +/-IV iron labStart: 11-20-2024 End: 62-63-0092CWG W Auto Differential panel - BloodCOMPLETE BLOOD COUNT AND DIFFERENTIAL Lab Routine Hypogammaglobulinemia (HCC) Expected: 11/20/2024, Expires: 02/19/2025[facility] Work Phone: Comment on above:Expected: 11/20/2024, Expires: 02/19/2025Start: 11-20-2024 End: 97-37-6568Oqyxwaxxo (Vitamin B12) [Mass/volume] in Serum or PlasmaVITAMIN B12 Lab Routine Hypogammaglobulinemia (HCC) Expected: 11/20/2024, Expires: 02/19/2025[facility] ClinicComment on above:Expected: 11/20/2024, Expires: 02/19/2025Start: 11-20-2024 End: 07-88-2937Rdccdggcdzgnf metabolic 2000 panel - Serum or PlasmaCOMPREHENSIVE METABOLIC PANEL Lab Routine Hypogammaglobulinemia (HCC) Expected: 11/20/2024, Expires: 02/19/2025[facility] ClinicComment on above:Expected: 11/20/2024, Expires: 02/19/2025Start: 11-20-2024 End: 80-66-4363Ynzydhrg [Mass/volume] in Serum or PlasmaFERRITIN Lab Routine Hypogammaglobulinemia (HCC) Expected: 11/20/2024, Expires: 02/19/2025[facility] ClinicComment on above:Expected: 11/20/2024, Expires: 02/19/2025Start: 11-20-2024 End: 07-62-0384Wpaucj [Mass/volume] in Serum or PlasmaFOLATE, SERUM Lab Routine Hypogammaglobulinemia (HCC) Expected: 11/20/2024, Expires: 02/19/2025[facility] ClinicComment on above:Expected: 11/20/2024, Expires: 02/19/2025Start: 11-20-2024 End: 26-84-4623QSKIOSGNMPLQPII,IGG,IGA,IGMIMMUNOGLOBULINS,IGG,IGA,IGM Lab Routine Hypogammaglobulinemia (HCC) Expected: 11/20/2024, Expires: 02/19/2025 [facility] ClinicComment on above:Expected: 11/20/2024, Expires: 02/19/2025Start: 06-35-0098Nhmwyfgep vaccinationInfluenza Vaccine (#1)[facility] HealthcareComment on above:Postponed from 01/23/2024 (Patient Refused)Start: 11-20-2024 End: 06-67-1453Gjyt and Iron binding capacity panel - Serum or PlasmaIRON AND TIBC Lab Routine Hypogammaglobulinemia (HCC) Expected: 11/20/2024, Expires: 02/19/2025[facility] ClinicComment on above:Expected: 11/20/2024, Expires: 02/19/2025Start: 11-16-2024 End: 36-81-5245mqyqelnojw62/26/2025 2:00 PM EDT Infusion Center Hematology/Oncology [address] [place] [address] BENLYSTA -Hematology/OncologyComment on above:BENLYSTA -Start: 11-01-2024 End: 96-10-1708baouerplwq19/11/2025 9:00 AM EDT Infusion Center Hematology/Oncology [address] [place] [address] [place] [address] IVIG q 4 weeks with B 12 inj and labHematology/OncologyComment on above:IVIG q 4 weeks with B 12 inj and labStart: 10-31-2024 End: 43-40-6303oyisyngwzf61/10/2025 9:00 AM EDT Infusion Center Hematology/Oncology [address] [place] [address] [place] [address] IVIG q 4 weeks with B 12 inj and labHematology/OncologyComment on above:IVIG q 4 weeks with B 12 inj and labStart: 10-19-2024 End: 84-34-7837vaxglyxbne14/29/2025 2:00 PM EDT Infusion Center Hematology/Oncology [address] [place] [address] [place] [address] BENLYSTA - IVIG AND BENLYSTA AT LEAST 1 DAY APART FOR FUTURE APPTSHematology/Oncology Comment on above:BENLYSTA - IVIG AND BENLYSTA AT LEAST 1 DAY APART FOR FUTURE APPTSStart: 10-18-2024 End: 65-00-6412Vskaiocfk Uqpsdphu39/28/2025 10:00 AM EDT Specialty Pharmacy [facility] [address] [place] [address] [id number] [address] Pharmacist, Specialtygroup [address] [place] [address] [place] [address] REFILL- Benlysta- PAx 02/11/25- - mult call attemptsCCF Specialty PharmacyComment on above:REFILL- Benlysta- PAx 02/11/25- - mult call attemptsStart: 10-07-2024 End: 58-62-3862Tvknqm-up ebrjkezoq64/17/2025 8:00 AM EDT [facility] Rheumatology [address] [facility] [place] [address] Lynne Ni MD [address] [place] [address] follow up visitRheumatologyComment on above:follow up visit Start: 10-06-2024 End: 483650-tjuckrfsvjrezz D3 [Mass/volume] in Serum or PlasmaVITAMIN D 25 HYDROXY Lab Routine Vitamin D deficiency Expected: 10/06/2024 (Approximate), Expires: 07/09/2025[facility] ClinicComment on above:Expected: 10/06/2024 (Approximate), Expires: 07/09/2025Start: 10-06-2024 End: 07-09-2025 reactive protein [Mass/volume] in Serum or PlasmaC-REACTIVE PROTEIN Lab Routine Elevated sed rate Elevated C-reactive protein (CRP) Expected: 10/06/2024 (Approximate), Expires: 07/09/2025[facility] ClinicComment on above:Expected: 10/06/2024 (Approximate), Expires: 07/09/2025Start: 10-06-2024 End: 57-72-4470ZKU panel - Blood by Automated countCOMPLETE BLOOD COUNT Lab Routine Anemia of chronic disease Expected: 10/06/2024 (Approximate), Expires: 07/09/2025[facility] ClinicComment on above:Expected: 10/06/2024 (Approximate), Expires: 07/09/2025Start: 10-06-2024 End: 30-27-8723Cruweodkumpta metabolic 2000 panel - Serum or PlasmaCOMPREHENSIVE METABOLIC PANEL Lab Routine Elevated LFTs Expected: 10/06/2024 (Approximate), Expires: 07/09/2025[facility] Work Phone: Comment on above:Expected: 10/06/2024 (Approximate), Expires: 07/09/2025Start: 10-06-2024 End: 58-03-0182Qeqxzlgfjcg sedimentation rateSEDIMENTATION RATE, WESTERGREN Lab Routine Elevated sed rate Elevated C-reactive protein (CRP) Expected: 10/06/2024 (Approximate), Expires: 07/09/2025[facility] ClinicComment on above:Expected: 10/06/2024 (Approximate), Expires: 07/09/2025Start: 2024 End: 17-71-5695caglpdsfmoTtkomcxhmk/OncologyComment on above:IVIG q 4 weeks with B 12 inj and labBENLYSTA - IVIG AND BENLYSTA AT LEAST 1 DAY APART FOR FUTURE APPTSREFILL- Benlysta- PAx 02/11/25- - LVM 09/20, 09/25, 7Start: 10-02-2024 End: 96-46-2864ychtedobxe00/12/2025 9:00 AM EDT Infusion Center Hematology/Oncology [address] [place] [address] [place] [address] IVIG q 4 weeks with B 12 inj and labHematology/OncologyComment on above:IVIG q 4 weeks with B 12 inj and labStart: 09-28-2024 End: 12-87-5734Jwltwigqr Cwiljezj82/08/2025 10:00 AM EDT Specialty Pharmacy [facility] [address] [place], [place] [id number] Pharmacist, Specialtygroup [address] [place] [address] [place] [address] REFILL- Benlysta- PAx 02/11/25- - LVM 09/20, 55CCF Specialty PharmacyComment on above:REFILL- Benlysta- PAx 02/11/25- - LVM 09/20, 5Start: 09-25-2024 End: 85-11-5957Rizbgglig Swlttrht33/05/2025 10:15 AM EDT Specialty Pharmacy [facility] [address] [place] [address] Pharmacist, Specialtygroup [address] [place] [address] [place] [address] REFILL- Benlysta- PAx 02/11/25- - LVM 09/20CCF Specialty PharmacyComment on above:REFILL- Benlysta- PAx 02/11/25- - LVM tart: 09-20-2024 End: 48-57-6151Voeewmejk Gcbxpfsc16/30/2025 10:15 AM EDT Specialty Pharmacy [facility] [address] [place] [address]-b[place]100[place] [address] Pharmacist, [facility]ty[facility] [address] [place] [address] [place] [address] REFILL- Benlysta- PAx 02/11/25- - pend new RxCCF Specialty PharmacyComment on above:REFILL- Benlysta- PAx 02/11/25 - pend new RxStart: 09-19-2024 End: 97-18-0993Vebkfgq encounter procedureGMIT MAIN WALKERComment on above:hEDS with concerns and wants CTD evaluationStart: 09-18-2024 End: 30-34-6987Aisuoilrb PharmacyCCF Specialty PharmacyComment on above:REFILL- Benlysta- PAx 02/11/25- BENLYSTAStart: 09-06-2024 End: 15-19-9972orgerupxza38/16/2025 9:30 AM EDT Infusion Center Hematology/Oncology [address] [place] [address] [place] [address] 3 mo F/U-IVIG(slow infusion per pt request/B12 +/-IV ironHematology/OncologyComment on above:3 mo F/U-IVIG(slow infusion per pt request/B12 +/-IV ironStart: 09-06-2024 End: 89-17-8059Zhozvt-up encounterHematology/OncologyComment on above:3 month follow up IVIG for hypogammaglobulinemia + s25Dgdcw: 09-06-2024 End: 55-40-2660Eyoyprg encounter tcidcblxx33/16/2025 8:45 AM EDT Office Visit [facility] Laboratory [address] [place] [address] [place] [address] 3 month follow up IVIG for hypogammaglobulinemia + o59Kxesl [facility] LaboratoryComment on above:3 month follow up IVIG for hypogammaglobulinemia + l53Oqezg: 09-05-2024 End: 74-89-3946Pnmnyg-up encounterHematology/OncologyComment on above:3 month follow up IVIG for hypogammaglobulinemia + u92Wsksm: 09-05-2024 End: 13-64-0066Cjljgvz encounter uwtddumcg41/15/2025 8:45 AM EDT Office Visit [facility] Laboratory [address] [place] [address] 3 month follow up IVIG for hypogammaglobulinemia + c22Klofq [facility] LaboratoryComment on above:3 month follow up IVIG for hypogammaglobulinemia + a58Kayxs: 09-04-2024 End: 68-70-6753Qzsvyvk encounter iagnegofw08/14/2025 3:20 PM EDT [facility] [address] [facility] [address] [place] [address] Gordo Barfield MD [address] [facility] [address] [place] [address] ArrivedNOMS SELVIN HARTomment on above:ArrivedStart: 08-28-2024 End: 85-43-8084UCV W Auto Differential panel - BloodCOMPLETE BLOOD COUNT AND DIFFERENTIAL Lab Routine Vitamin B12 deficiency Other iron deficiency anemia Hypogammaglobulinemia (HCC) Expected: 08/28/2024, Expires: 11/27/2024[facility] Work Phone: Comment on above:Expected: 08/28/2024, Expires: 11/27/2024Start: 08-28-2024 End: 36-15-0536Tnqurvonm (Vitamin B12) [Mass/volume] in Serum or PlasmaVITAMIN B12 Lab Routine Vitamin B12 deficiency Other iron deficiency anemia Hypogammaglobulinemia (HCC) Expected: 08/28/2024, Expires: 11/27/2024[facility] ClinicComment on above:Expected: 08/28/2024, Expires: 11/27/2024Start: 08-28-2024 End: 12-05-9324Fewxspywpzzdb metabolic 2000 panel - Serum or PlasmaCOMPREHENSIVE METABOLIC PANEL Lab Routine Vitamin B12 deficiency Other iron deficiency anemia Hypogammaglobulinemia (HCC) Expected: 08/28/2024, Expires: 11/27/2024[facility] ClinicComment on above:Expected: 08/28/2024, Expires: 11/27/2024Start: 08-28-2024 End: 81-14-1666Zhfcnkyz [Mass/volume] in Serum or PlasmaFERRITIN Lab Routine Vitamin B12 deficiency Other iron deficiency anemia Hypogammaglobulinemia (HCC) Expected: 08/28/2024, Expires: 11/27/2024[facility] ClinicComment on above: Expected: 08/28/2024, Expires: 11/27/2024Start: 08-28-2024 End: 83-79-6211Vdrnzd [Mass/volume] in Serum or PlasmaFOLATE, SERUM Lab Routine Vitamin B12 deficiency Other iron deficiency anemia Hypogammaglobulinemia(HCC) Expected: 08/28/2024, Expires: 11/27/2024[facility] ClinicComment on above: Expected: 08/28/2024, Expires: 11/27/2024Start: 08-28-2024 End: 21-81-5186RqR [Mass/volume] in Serum or PlasmaIMMUNOGLOBULIN G Lab Routine Vitamin B12 deficiency Other iron deficiency anemia Hypogammaglobulinemia (HCC) Expected: 08/28/2024, Expires: 11/27/2024[facility] ClinicComment on above: Expected: 08/28/2024, Expires: 11/27/2024Start: 08-28-2024 End: 44-90-9422Imnc and Iron binding capacity panel - Serum or PlasmaIRON AND TIBC Lab Routine Vitamin B12 deficiency Other iron deficiency anemia Hypogammaglobulinemia(HCC) Expected: 08/28/2024, Expires: 11/27/2024[facility] ClinicComment on above:Expected: 08/28/2024, Expires: 11/27/2024Start: 08-22-2024 End: 43-02-2251Ssymqoo encounter xeuvgmuvr40/01/2025 1:30 PM EDT Office Visit [facility] [address] [place] [phone] Raj Kitchen MD [address] [place] [address] [facility] ENDOCRINOLOGYStart: 08-22-2024 End: 77-55-3534Xoudayzso Yklpgjpd35/01/2025 10:15 AM EDT Specialty Pharmacy [facility] [address] [place] [address] Pharmacist, Specialtygroup [address] [place] [address] [address] [place] [address] REFILL- Benlysta- PAx 02/11/25- lvm 08/17CC Specialty PharmacyComment on above:REFILL- Benlysta- PAx 02/11/25 lvm 08/17Start: 08-17-2024 End: 46-48-3369Ftsfbpsgm Rwtitmng31/27/2025 10:00 AM EDT Specialty Pharmacy [facility] [address] [place] [address] Pharmacist, Specialtygroup [address] [place] [address] [place] [address] REFILL- Benlysta- PAx 02/11/25- CCF Specialty PharmacyComment on above:REFILL- Benlysta- PAx 02/11/25Start: 08-15-2024 End: 23-45-8527Ydnfidu encounter wmragjiwj93/25/2025 10:20 AM EDT Office Visit [facility] [address] [facility] [address] [place] [address] Gordo Barfield MD [address] [facility] [address] [place] [address] [facility] CI ENTStart: 08-08-2024 End: 81-61-3967kojnqqsexl92/18/2025 9:30 AM EDT Infusion Center Hematology/Oncology [address] [place] [address] [place] [address] IVIG for hypogammaglobulinemia + o47Mptrmfcmuq/OncologyComment on above:IVIG for hypogammaglobulinemia + j33Xdxba: 08-01-2024 End: 34-88-7359Pgufggq encounter nbqjodbls25/11/2025 10:30 AM EDT Office Visit [facility] [address] [place] [address] Bernabe English MD [address] [place] [address] [facility] SWS DERMStart: 07-25-2024 End: 74-52-1873Qdeewwlmt PharmacyCCF Specialty PharmacyComment on above:REFILL- Benlysta- PAx 02/11/25- daysArrivedStart: 07-20-2024 End: 06-94-3357xkgfrenkck34/27/2025 11:30 AM EST [facility] Infectious Disease [address] [place] [address] Alhaji Victoria DO [address] [place], [place] [id number] Positive blood cultures [R78.81]Infectious DiseaseComment on above:Positive blood cultures [R78.81]Start: 07-20-2024 End: 89-02-3787Uleynzh encounter wmgbnxbri87/27/2025 11:30 AM EST Office Visit Infectious Disease [address] [place] [address] Alhaji Victoria DO [address] [place], [place] [address] Positive blood cultures [R78.81]Infectious DiseaseComment on above: Positive blood cultures [R78.81]Start: 48-64-1857LxvlyjvgjMain Campus Medical Centertart: 07-13-2024 End: 32-77-4560Lonuwhs encounter /20/2025 9:20 AM EST Office Visit [address] [place] [phone] Lois Holm MD [address] [facility] [address] [place] [address] [facility]: 07-12-2024 End: 20-60-1278Rwmzlgp encounter /19/2025 2:40 PM EST Office Visit Otolaryngology [address] [place] [address] Marky Gasca PA-C [address] [place], [place] [id number] RecurrentThrush.OtolaryngologyComment on above:Recurrent Thrush.Start: 07-11-2024 End: 31-67-7077tujulbeexf99/18/2025 9:30 AM EST Infusion Center Hematology/Oncology [address] [place] [address] [place] [address] IVIG for hypogammaglobulinemia + y89Zyfvauobqw/OncologyComment on above:IVIG for hypogammaglobulinemia + a12Rrzpr: 07-03-2024 End: 741946-vaksuuugwlqpmq D3 [Mass/volume] in Serum or PlasmaVITAMIN D 25 HYDROXY Lab Routine Vitamin D deficiency Expected: 07/03/2024 (Approximate), Expires: 04/02/2025[facility] ClinicComment on above:Expected: 07/03/2024 (Approximate), Expires: 04/02/2025Start: 07-03-2024 End: 04-02-2025 reactive protein [Mass/volume] in Serum or PlasmaC-REACTIVE PROTEIN Lab Routine Elevated sed rate Elevated C-reactive protein (CRP) Expected: 07/03/2024 (Approximate), Expires: 04/02/2025[facility] ClinicComment on above:Expected: 07/03/2024 (Approximate), Expires: 04/02/2025Start: 07-03-2024 End: 62-65-3807SND panel - Blood by Automated countCOMPLETE BLOOD COUNT Lab Routine Anemia of chronic disease Expected: 07/03/2024 (Approximate), Expires: 04/02/2025[facility] ClinicComment on above:Expected: 07/03/2024 (Approximate), Expires: 04/02/2025Start: 07-03-2024 End: 31-66-2569Vovemskjxslym metabolic 2000 panel - Serum or PlasmaCOMPREHENSIVE METABOLIC PANEL Lab Routine Elevated LFTs Expected: 07/03/2024 (Approximate), Expires: 04/02/2025[facility] Work Phone: Comment on above:Expected: 07/03/2024 (Approximate), Expires: 04/02/2025Start: 07-03-2024 End: 20-91-9896Hbcbwziuhow sedimentation rateSEDIMENTATION RATE, WESTERGREN Lab Routine Elevated sed rate Elevated C-reactive protein (CRP) Expected: 07/03/2024 (Approximate), Expires: 04/02/2025[facility] ClinicComment on above:Expected: 07/03/2024 (Approximate), Expires: 04/02/2025Start: 06-29-2024 End: 06-46-1547Hvqsjvael Disauizq95/06/2025 10:00 AM EST Specialty Pharmacy [facility] [address] [place], [place] [address], [place] [address] Pharmacist, Specialtygroup [address] [place] [address] [place], [place] [address] REFILL- Benlysta- PAx 02/11/25- CC Specialty PharmacyComment on above:REFILL- Benlysta- PAx 02/11/25- daysStart: 06-26-2024 End: 17-23-2579Mebfpzz evaluation of patient and yfqllp3006/26/2024 9:45 AM EST Nurse Visit Hematology/Oncology [address] [place] [address] Hoda Marshall Nurse Sawyer [address] [place] [address] K10Mkqodktqgd/OncologyComment on above:P89Zyuky: 06-26-2024 End: 68-09-2268afmslgazjuQjlrnjtfgm/OncologyComment on above:RTC 3 monthIVIG for hypogammaglobulinemiaStart: 06-26-2024 End: 20-29-7816Ewhraen encounter trxbtrmyr82/03/2025 8:45 AM EST Office Visit [facility] Laboratory [address] [facility] [place] [address] labsNoWebster County [facility] LaboratoryComment on above:labsStart: 06-14-2024 End: 26-73-0704Nbbrzqo evaluation of patient and reportCoalfield Gastroenterology and Endoscopy CenterComment on above:Abdominal Pain/Diarrhea/Bandar S SINGLE POINTED OPERATOR ordered/Patient has prep thru MyChart//ccSIBO - Abdominal Pain/Diarrhea/Bandar S SINGLE POINTED OPERATOR ordered/Patient has prep thru MyChart//cc Order in Scanned DocumentsStart: 06-13-2024 End: 84-61-0892Qbfoyajpi (Vitamin B12) [Mass/volume] in Serum or PlasmaCleveland ClinicComment on above:Expected: 06/13/2024, Expires: 09/12/2024Start: 06-13-2024 End: 56-26-2869Sofkvgqa [Mass/volume] in Serum or PlasmaCleveland [facility] Work Phone: Comment on above:Expected: 06/13/2024, Expires: 09/12/2024Start: 06-13-2024 End: 28-23-0268Mmvrzx [Mass/volume] in Serum or PlasmaCleveland St. Luke'S HospitalComment on above:Expected: 06/13/2024, Expires: 09/12/2024Start: 06-13-2024 End: 98-28-0175Tigj and Iron binding capacity panel - Serum or PlasmaCleveland ClinicComment on above:Expected: 06/13/2024, Expires: 09/12/2024Start: 06-13-2024 End: 62-84-9396Pmcgnxs evaluation of patient and amirhk1006/13/2024 9:45 AM EST Nurse Visit Hematology/Oncology [address] [place] [address] [phone] Hoda Marshall Nurse Sawyer [address] [place] [address] D18Bygwjhbmla/OncologyComment on above:D74Gdzpe: 06-13-2024 End: 72-42-1649plngmksodfPgfkedpnyj/OncologyComment on above:RTC 3 monthIVIG for hypogammaglobulinemiaStart: 06-13-2024 End: 07-66-3461Ynmhcri encounter ohentvcmc83/21/2025 8:45 AM EST Office Visit [facility] [address] [place] [address] labsNortCorewell Health [facility] LaboratoryComment on above:labsStart: 06-06-2024 End: 46-21-7872UA Breast - bilateral ScreeningBilateral screening mammogram Imaging Routine Breast cancer screening by mammogram Expected: 06/06/2024 (Approximate), Expires: 08/04/2025[facility] Work Phone: comment on above:Expected: 06/06/2024 (Approximate), Expires: 08/04/2025Start: 06-06-2024 End: 74-60-6302ZL Breast - left DiagnosticLeft diagnostic mammogram Imaging Routine Breast nodule Expected: 06/06/2024 (Approximate), Expires: 08/04/2025 [facility] HealthcareComment [facility]:Expected: 06/06/2024 (Approximate), Expires: 08/04/2025Start: 06-06-2024 End: 90-89-7694Bxyfbfq encounter procedureNOMS BCP OBComment on above:REFILL- Benlysta- PAx 02/11/25Start: 05-29-2024 End: 95-35-4574Oxlzfno evaluation of patient and hlbwia0405/29/2024 9:30 AM EST Nurse Visit Hematology/Oncology [address] [place] [address] Hoda Marshall Nurse Sawyer [address] [place] [address] B94Eehqmqgboc/OncologyComment on above:B03Dlrzv: 05-19-2024 End: 47-21-3210nktlzylbwp22/27/2024 9:30 AM EST Infusion Center Hematology/Oncology [address] [place] [address] IVIG for hypogammaglobulinemiaHematology/OncologyComment on above:IVIG for hypogammaglobulinemiaStart: 05-12-2024 End: 03-50-3691Vvvmtcinq Fpdfwuvt00/20/2024 10:00 AM EST Specialty Pharmacy [facility] [address] [place], [place] [address]-b-[address], [place] [address] Pharmacist, Specialtygroup [address] [place] [address] [address] [place], [place] [address] REFILL- Benlysta- PAx 02/11/25CC Specialty PharmacyComment on above:REFILL- Benlysta- PAx 02/11/25Start: 04-28-2024 End: 15-56-3685UX.doppler Extremity arteries - bilateral for physiologic artery studyVas art doppler lwr bilat mult lev/PVR Vascular Ultrasound Routine Peripheral vascular disease, unspecified ([facility]) Cold extremities Systemic lupus erythematosus ([facility]) Expected: 04/28/2024, Expires: 04/28/2025[facility] Work Phone: Comment on above:Expected: 04/28/2024, Expires: 04/28/2025Start: 04-24-2024 End: 97-02-6944Npclvwp evaluation of patient and bwpnog9404/24/2024 9:30 AM EST Nurse Visit Hematology/Oncology [address] [place] [place] [address] Hoda Marshall Nurse Sawyer [address] [place] [place] [address] B01Wmzkciixkn/OncologyComment on above:C08Kjlub: 04-18-2024 End: 85-72-6581Fulvvxy evaluation of patient and reportCoalfield Gastroenterology and Endoscopy CenterComment on above:referSiboStart: 04-14-2024 End: 59-47-8193qglflbedmhMdcgcyegbu/OncologyComment on above:IVIG for hypogammaglobulinemiaREFILL- Benlysta- PAx 02/11/25Start: 04-11-2024 End: 54-12-8900Wtpwaqkad PharmacyCCF Specialty PharmacyComment on above:REFILL- Benlysta- PAx 02/11/25- NCA REFILL- Benlysta- PAx 02/11/25- Start: 04-06-2024 End: 59-07-4007YI.doppler Extremity arteries - bilateral for physiologic artery studyVas art doppler lwr bilat mult lev/PVR Vascular Ultrasound Routine Cold extremities Pain of lower extremity, unspecified laterality Systemic lupus erythematosus ([facility]-HCC) Expected: 04/06/2024, Expires: 2025[facility] Work Phone: Comment on above:Expected: 04/06/2024, Expires: 2025Start: 03-28-2024 End: 59-15-8491zvzitjappb24/05/2024 1:00 PM [facility] Hematology/Oncology [address] [place] [address] [place] [address] Vera Najera MD [address] [place] [address] [place] [address] 13 wk virtual after labs last weekHematology/OncologyComment on above:13 wk virtual after labs last weekStart: 03-23-2024 End: 82-94-9329jNMT in Blood by Coagulation assayAPTT Lab Routine Menorrhagia with regular cycle Expected: 03/23/2024 (Approximate), Expires: 03/23/2025[facility] HealthcareComment on above:Expected: 03/23/2024 (Approximate), Expires: 03/23/2025Start: 03-23-2024 End: 69-81-5054RY for pregnancyUS PELVIS-TRANSVAG IF INDICATED Imaging Routine Menorrhagia with regular cycle Expected: 03/23/2024(Approximate), Expires: 03/23/2025[facility] HealthcareComment on above:Expected: 03/23/2024 (Approximate), Expires: 03/23/2025Start: 03-21-2024 End: 96-19-9441Gccyoew evaluation of patient and pyqjmw4803/21/2024 11:45 AM EDT Nurse Visit Hematology/Oncology [address] [place] [address] [place] [address] Hoda Marshall Nurse Sawyer [address] [place] [address] o94Mihzgtiygp/OncologyComment on above:o57Himlw: 03-21-2024 End: 25-60-1120Lezmjhm encounter offdgypea95/29/2024 11:15 AM EDT Office Visit [facility] Laboratory [address] [place] [address] LAbNortCorewell [facility] LaboratoryComment on above:LAbStart: 03-20-2024 End: 179531-ebukjglylwykjs D3 [Mass/volume] in Serum or PlasmaVITAMIN D 25 HYDROXY Lab Routine Vitamin D deficiency Expected: 03/20/2024 (Approximate), Expires: 12/29/2024[facility] ClinicComment on above:Expected: 03/20/2024 (Approximate), Expires: 12/29/2024Start: 03-20-2024 End: 83-50-1874ECOVJ TB SCREENBLOOD TB SCREEN Lab Routine Screening-pulmonary TB Expected: 03/20/2024 (Approximate), Expires: 12/29/2024[facility] ClinicComment on above:Expected: 03/20/2024 (Approximate), Expires: 12/29/2024Start: 03-20-2024 End: 12-29-2024 reactive protein [Mass/volume] in Serum or PlasmaC-REACTIVE PROTEIN Lab Routine Elevated C-reactive protein (CRP) Elevated sed rate Expected: 03/20/2024 (Approximate), Expires: 12/29/2024[facility] ClinicComment on above:Expected: 03/20/2024 (Approximate), Expires: 12/29/2024Start: 03-20-2024 End: 28-61-5479OEL W Auto Differential panel - BloodCOMPLETE BLOOD COUNT AND DIFFERENTIAL Lab Routine Megaloblastic anemia due to vitamin B12 deficiency Elevated sed rate Obstructive sleep apnea syndrome Expected: 03/20/2024 (Approximate), Expires: 06/19/2024[facility] ClinicComment on above:Expected: 03/20/2024 (Approximate), Expires: 06/19/2024Start: 03-20-2024 End: 07-39-9459Jbmyhmyzj (Vitamin B12) [Mass/volume] in Serum or PlasmaVITAMIN B12 Lab Routine Megaloblastic anemia due to vitamin B12 deficiency Elevated sed rate Obstructive sleep apnea syndrome Expected: 03/20/2024 (Approximate), Expires: 06/19/2024[facility] HospitalComment on above:Expected: 03/20/2024 (Approximate), Expires: 06/19/2024Start: 03-20-2024 End: 57-45-2548Pwexlwftiplvb metabolic 2000 panel - Serum or PlasmaCOMPREHENSIVE METABOLIC PANEL Lab Routine Megaloblastic anemia due to vitamin B12 deficiency Elevated sed rate Obstructive sleep apnea syndrome Expected: 03/20/2024 (Approximate), Expires: 06/19/2024[facility] Work Phone: Comment on above:Expected: 03/20/2024 (Approximate), Expires: 06/19/2024Start: 03-20-2024 End: 74-00-3945Qwuludzzimb sedimentation rateSEDIMENTATION RATE, WESTERGREN Lab Routine Elevated C-reactive protein (CRP) Elevated sed rate Expected: 03/20/2024 (Approximate), Expires: 12/29/2024[facility] Work Phone: Comment on above:Expected: 03/20/2024 (Approximate), Expires: 12/29/2024Start: 03-20-2024 End: 69-09-5299Omoysphn [Mass/volume] in Serum or PlasmaFERRITIN Lab Routine Megaloblastic anemia due to vitamin B12 deficiency Elevated sed rate Obstructive sleep apnea syndrome Expected: 03/20/2024 (Approximate), Expires: 06/19/2024 [facility]:Expected: 03/20/2024 (Approximate), Expires: 06/19/2024Start: 03-20-2024 End: 62-24-3544Wtalkw [Mass/volume] in Serum or PlasmaFOLATE, SERUM Lab Routine Megaloblastic anemia due to vitamin B12 deficiency Elevated sed rate Obstructive sleep apnea syndrome Expected: 03/20/2024 (Approximate), Expires: 06/19/2024 [facility]Comment on above:Expected: 03/20/2024 (Approximate), Expires: 06/19/2024Start: 03-20-2024 End: 68-85-8356GQPWYXYVSYAHJDK,IGG,IGA,IGMIMMUNOGLOBULINS,IGG,IGA,IGM Lab Routine Megaloblastic anemia due to vitamin B12 deficiency Elevatedsed rate Obstructive sleep apnea syndrome Expected: 03/20/2024 (Approximate), Expires: 06/19/2024[facility] ClinicComment on above:Expected: 03/20/2024 (Approximate), Expires: 06/19/2024Start: 03-20-2024 End: 24-04-4951Pubr and Iron binding capacity panel - Serum or PlasmaIRON AND TIBC Lab Routine Megaloblastic anemia due to vitamin B12 deficiency Elevated sed rate Obstructive sleep apnea syndrome Expected: 03/20/2024 (Approximate), Expires: 06/19/2024[facility] ClinicComment on above:Expected: 03/20/2024 (Approximate), Expires: 06/19/2024Start: 03-18-2024 End: 87-43-8512Cmsjfaf encounter facgfeeja52/26/2024 9:00 AM EDT [facility] Rheumatology [address] [place] [address] Lynne Ni MD [address] [place] [address] May offer 03/18/24 Sat REJ 4th floor in person/virtual/phone for lupusRheumatologyComment on above:May offer 03/18/24 Sat REJ 4th floor in person/virtual/phone for lupusStart: 81-18-9631Neoftre [facility] Work Phone: Start: 03-16-2024 End: 98-86-8671MD Breast - bilateralBilateral breast US complete Imaging Routine Nipple discharge Expected: 03/16/2024, Expires: 05/16/2025[facility] Work Phone: comment on above:Expected: 03/16/2024, Expires: 05/16/2025Start: 03-16-2024 End: 21-56-8791Otofstkmn PharmacyCCF Specialty PharmacyComment on above:REFILL- Benlysta- PAx 02/11/25- NCA 09/2024-l/m 03/13ArrivedStart: 03-13-2024 End: 07-59-9847Xtxvksglj PharmacyHARD[facility] Specialty PharmacyComment on above:REFILL- Benlysta- PAx 02/04/24- NCA 09/2024-, ND 02/23-renewal sub 02/13REFILL- Benlysta- PAx 02/11/25- NCA 09/2024-,Start: 02-22-2024 End: 34-58-0513Wuvmgsu evaluation of patient and cyaswx9802/22/2024 11:45 AM EDT Nurse Visit Hematology/Oncology [address] [place] [address] Hoda Marshall Nurse Sawyer [address] [place] [address] t44Gfhugpvwdh/OncologyComment on above:f72Gzsmn: 02-22-2024 End: 88-64-2903Otvepoq encounter kblbsporp08/01/2024 11:15 AM EDT Office Visit [facility] Laboratory [address] [place] [address] [facility] LaboratoryComment on above:LAbStart: 02-21-2024 End: 27-42-5825Vtufste evaluation of patient and yvyppp4202/21/2024 10:45 AM EDT Nurse Visit Hematology/Oncology [address] [place] [address] [phone] Hoda Marshall Nurse Sawyer [address] [place] [address] l54Ryimoldvox/OncologyComment on above:e18Mqbql: 02-21-2024 End: 46-88-5676Tuxnhsi encounter gdmcdpdop38/30/2024 10:30 AM EDT Office Visit [facility] Laboratory [address] [place] [address] [facility] LaboratoryComment on above:LAbStart: 92-03-3728XohgywlyrMain Campus Medical Centertart: 02-14-2024 End: 11-03-1262Ekrwdy-up encounterNeurologyComment on above:Cpap follow up REFILL- Benlysta- PAx 02/04/24- NCA 09/2024-, ND 02/23Start: 02-09-2024 End: 62-59-8570Cmrfiuc encounter ypypjljan52/18/2024 8:00 AM EDT Office Visit [facility] [address] [facility] [place] [address] Zita Cuellar, [employer] [address] [facility] [address], [place] [phone] (Work) [facility] 210Start: 01-27-2024 End: 01-96-8752Msjomnhr identified in Blood by CultureBLOOD CULTURE Microbiology Routine Pseudomonas infection Expected: 01/27/2024, Expires: 04/27/[address] [facility] Work Phone: comment on above:Expected: 01/27/2024, Expires: 04/27/2024Start: 01-27-2024 End: 26-12-1696Qywyds-up wzmjavusb27/05/2024 10:00 AM EDT [facility] Infectious Disease [address] [facility] [place] [address] Alhaji Victoria, [facility] [address] [place] [address] follow upInfectious DiseaseComment on above:follow up Start: 01-25-2024 End: 94-71-0228Sankptj evaluation of patient and reportHematology/Oncology Comment on above:b12B12(change date)Start: 01-25-2024 End: 12-86-2612Osjxrih encounter procedureNoWebster County Memorial Hospital LaboratoryComment on above:LAbNO LAB ORDERS LAbStart: 91-57-1849Cexyvvpqu vaccinationInfluenza Vaccine (#1)[facility] HealthcareComment on above:Postponed from 01/22/2023 (Patient Refused)Start: 17-58-5068Gydut-19 Vaccine ( season)Covid-19 Vaccine ()[facility]: 01-23-2024 Covid-19 Vaccine ()Covid-19 Vaccine () [facility]: 27-68-7125Ktkwfkobb vaccinationKettering Health Daytontart: 01-20-2024 End: 21-30-5840Vdxjuhwfd PharmacyCC Specialty PharmacyComment on above:refill - benlysta- NCA 09/2024-- pa exp: 02/04/24-pseudomonas oryzihabitans in my breastStart: 12-27-2023 End: 68-98-6625Ntxdlqu evaluation of patient and kxdhpt3112/27/2023 12:00 PM EDT Nurse Visit Hematology/Oncology [address] [place] [address] [place] [address] Hoda Marshall Nurse Sawyer [address] [place] [address] [place] [address] v73Stonqjuxkz/OncologyComment on above:l69Fkatw: 12-27-2023 End: 95-14-8708Tzjfyw-up msrsxjqeu11/05/2024 11:30 AM EDT Visit (SP) Office Hematology/Oncology [address] [place] [address] [place] [address] Neda Hill, PA-C [address] [place] [place] [address] 13 week follow up, labs 1 week beforeHematology/OncologyComment on above:13 week follow up, labs 1 week beforeStart: 12-27-2023 End: 43-35-6697Jnzxdad encounter /05/2024 11:15 AM EDT Office Visit [facility] Laboratory [address] [place] [address] [place] [address] LAbNortCorewell Health [facility] LaboratoryComment on above:LAbStart: 12-13-2023 End: 82-35-7494Dgowsogoj Qsxrfmcd51/22/2024 10:00 AM EDT Specialty Pharmacy [facility] [address] [id number] [address] Pharmacist, Specialtygroup [address] [place] [address] [address] [place], [place] [address] refill - benlysta- NCA - pa exp: 02/04/24-CCF Specialty PharmacyComment on above:refill - benlysta- NCA - pa exp: 02/04/24-Start: 12-10-2023 End: 08-18-8864Dalctr-up xpjgtmiwh36/19/2024 10:45 AM EDT Visit (SP) Office Hematology/Oncology [address] [place] [address] Vera Najera MD [address] [place] [address] 13 week follow up, labs 1 week beforeHematology/Oncology Comment on above:13 week follow up, labs 1 week beforeStart: 12-04-2023 End: 796569-wfonvvzgkwglkt D3 [Mass/volume] in Serum or PlasmaVITAMIN D 25 HYDROXY Lab Routine Vitamin D deficiency Expected: 12/04/2023 (Approximate), Expires: 09/03/2024[facility] Work Phone: Comment on above:Expected: 12/04/2023 (Approximate), Expires: 09/03/2024Start: 12-04-2023 End: 09-03-2024 reactive protein [Mass/volume] in Serum or PlasmaC-REACTIVE PROTEIN Lab Routine Elevated sed rate Elevated C-reactive protein (CRP) Expected: 12/04/2023 (Approximate), Expires: 09/03/2024[facility] Work Phone: Comment on above:Expected: 12/04/2023 (Approximate), Expires: 09/03/2024Start: 12-04-2023 End: 22-49-2848GLB panel - Blood by Automated countCOMPLETE BLOOD COUNT Lab Routine Anemia of chronic disease Expected: 12/04/2023 (Approximate), Expires: 09/03/2024[facility] Work Phone: Comment on above:Expected: 12/04/2023 (Approximate), Expires: 09/03/2024Start: 12-04-2023 End: 02-46-2308Ztrhljqtdunbl metabolic 2000 panel - Serum or PlasmaCOMPREHENSIVE METABOLIC PANEL Lab Routine Elevated LFTs Expected: 12/04/2023 (Approximate), Expires: 09/03/2024[facility] Work Phone: Comment on above:Expected: 12/04/2023 (Approximate), Expires: 09/03/2024Start: 12-04-2023 End: 15-12-1290Ldivbjeqezg sedimentation rateSEDIMENTATION RATE, WESTERGREN Lab Routine Elevated sed rate Elevated C-reactive protein (CRP) Expected: 12/04/2023 (Approximate), Expires: 09/03/2024[facility] Work Phone: Comment on above:Expected: 12/04/2023 (Approximate), Expires: 09/03/2024Start: 12-03-2023 End: 08-86-6236Cxfxxkp evaluation of patient and xknork7312/03/2023 11:00 AM EDT Nurse Visit Hematology/Oncology [address] [place] [address] Hoda Marshall Nurse Sawyer [address] [place] [address] u44Qwdjimrqbr/OncologyComment on above:t66Psvxs: 12-03-2023 End: 93-25-3353Jaltgeh encounter raqqcspcz89/12/2024 10:45 AM EDT Office Visit [facility] Laboratory [address] [place] [address] labNortCorewell Health [facility] Hospital LaboratoryComment on above:labStart: 12-02-2023 End: 09-85-4562BAZ W Auto Differential panel - BloodCOMPLETE BLOOD COUNT AND DIFFERENTIAL Lab Routine Megaloblastic anemia due to vitamin B12 deficiency High total serum IgM Expected: 12/02/2023 (Approximate), Expires: 09/08/[address] [facility] Work Phone: Comment on above:Expected: 12/02/2023 (Approximate), Expires: 09/08/2024Start: 12-02-2023 End: 05-38-0303Kktzqkllf (Vitamin B12) [Mass/volume] in Serum or PlasmaVITAMIN B12 Lab Routine Megaloblastic anemia due to vitamin B12 deficiency High total serum IgM Expected: 12/02/2023 (Approximate), Expires: 09/08/2024[facility] Work Phone: Comment on above:Expected: 12/02/2023 (Approximate), Expires: 09/08/2024Start: 12-02-2023 End: 61-96-4495Epudpmbkehadx metabolic 2000 panel - Serum or PlasmaCOMPREHENSIVE METABOLIC PANEL Lab Routine Megaloblastic anemia due to vitamin B12 deficiency High total serum IgM Expected: 12/02/2023 (Approximate), Expires: 09/08/[address] [facility] Work Phone: Comment on above:Expected: 12/02/2023 (Approximate), Expires: 09/08/2024Start: 12-02-2023 End: 77-37-1877Ywvoxvrfavq sedimentation rateSEDIMENTATION RATE, WESTERGREN Lab Routine Megaloblastic anemia due to vitamin B12 deficiency High total serum IgM Expected: 12/02/2023 (Approximate), Expires: 03/02/2024[facility] Work Phone: Comment on above:Expected: 12/02/2023 (Approximate), Expires: 03/02/2024Start: 12-02-2023 End: 14-30-8825Lilhmtyo [Mass/volume] in Serum or PlasmaFERRITIN Lab Routine Megaloblastic anemia due to vitamin B12 deficiency High total serum IgM Expecte d: 12/02/2023 (Approximate), Expires: 09/08/2024[facility] Work Phone: Comment on above:Expected: 12/02/2023 (Approximate), Expires: 09/08/2024Start: 12-02-2023 End: 77-59-3626Ahkpqj [Mass/volume] in Serum or PlasmaFOLATE, SERUM Lab Routine Megaloblastic anemia due to vitamin B12 deficiency High total serum IgM Ex pected: 12/02/2023 (Approximate), Expires: 09/08/2024[facility] Work Phone: Comment on above:Expected: 12/02/2023 (Approximate), Expires: 09/08/2024Start: 12-02-2023 End: 02-22-8171XdV [Mass/volume] in Serum or PlasmaIMMUNOGLOBULIN A Lab Routine Megaloblastic anemia due to vitamin B12 deficiency High total serum IgM Expected: 12/02/2023 (Approximate), Expires: 03/02/2024[facility] Work Phone: Comment on above:Expected: 12/02/2023 (Approximate), Expires: 03/02/2024Start: 12-02-2023 End: 37-89-5470SzT [Units/volume] in Serum or PlasmaIMMUNOGLOBULIN E Lab Routine Megaloblastic anemia due to vitamin B12 deficiency High total serum IgM Expected: 12/02/2023 (Approximate), Expires: 03/02/2024[facility] Work Phone: Comment on above:Expected: 12/02/2023 (Approximate), Expires: 03/02/2024Start: 12-02-2023 End: 36-15-0290MoM [Mass/volume] in Serum or PlasmaIMMUNOGLOBULIN G Lab Routine Megaloblastic anemia due to vitamin B12 deficiency High total serum IgM Expected: 12/02/2023 (Approximate), Expires: 03/02/2024[facility] Work Phone: Comment on above:Expected: 12/02/2023 (Approximate), Expires: 03/02/2024Start: 12-02-2023 End: 32-15-9777TpG [Mass/volume] in Serum or PlasmaIMMUNOGLOBULIN M Lab Routine Megaloblastic anemia due to vitamin B12 deficiency High total serum IgM Expected: 12/02/2023 (Approximate), Expires: 03/02/2024[facility] Work Phone: Comment on above:Expected: 12/02/2023 (Approximate), Expires: 03/02/2024Start: 12-02-2023 End: 90-50-8971Lubh and Iron binding capacity panel - Serum or PlasmaIRON AND TIBC Lab Routine Megaloblastic anemia due to vitamin B12 deficiency High total serum IgM Expected: 12/02/2023 (Approximate), Expires: 09/08/2024[facility] Work Phone: Comment on above:Expected: 12/02/2023 (Approximate), Expires: 09/08/2024Start: 11-29-2023 End: 23-59-2738Ioeajnj evaluation of patient and jmnifn0211/29/2023 2:15 PM EDT Nurse Visit Hematology/Oncology [address] [place] [place] [address] [phone] Hoda Marshall Nurse Sawyer [address] [place] [place] [address] n97Paeqvqxksj/OncologyComment on above:f63Mtbzc: 11-15-2023 End: 01-19-3078Povisnpza Ryahlcfc66/24/2024 10:00 AM EDT Specialty Pharmacy [facility] [address] [place] [id number] Pharmacist, Specialtygroup [address] [place] [address] [place], [place] [address] refill - benlysta- NCA - pa exp: 02/04/24-CCF Specialty PharmacyComment on above:refill - benlysta- NCA - pa exp: 02/04/24-Start: 10-29-2023 End: 20-95-1240Saytklt evaluation of patient and dmokaf2010/29/2023 11:00 AM EDT Nurse Visit Hematology/Oncology [address] [place] [address] [phone] Hoda Marshall Nurse Sawyer [address] [place] [place] [address] p31Rqycnfdfod/OncologyComment on above:r66Wddsk: 10-15-2023 End: 65-64-7539Ytbqixqfw Yumljcad44/24/2024 10:00 AM EDT Specialty Pharmacy [facility] [address] [place] [address] Pharmacist, Specialtygroup [address] [place] [address] [address] [place] [address] refill - benlysta-Thursdays- pa exp: 02/04/24-l/m 10/11 Specialty PharmacyComment on above:refill - benlysta-Thursdays- pa exp: 02/04/24-l/m art: 10-12-2023 End: 44-57-6828Ufxbifity Diwcisla30/21/2024 10:00 AM EDT Specialty Pharmacy [facility] [address] [place] [address] Pharmacist, Specialtygroup [address] [place] [address] [address] [place], [place] [address] refill - benlysta-Thursdays- pa exp: 02/04/24-[facility] Specialty PharmacyComment on above:refill - benlysta-Thursdays- pa exp: 02/04/24-Start: 10-05-2023 End: 68-09-9275Uvbedoh encounter fiqivjphh81/14/2024 8:00 AM EDT [facility] Rheumatology [address] [place], [place] [id number] Lynne Ni MD [address] [place] [address] 6 mo f/u for LupusRheumatologyComment on above:6 mo f/u for LupusStart: 10-01-2023 End: 69-16-6429Zrzhagg evaluation of patient and cptdaz2010/01/2023 11:00 AM EDT Nurse Visit Hematology/Oncology [address] [place] [address] Hoda Marshall Nurse Sawyer [address] [place] [place] [address] f67Isnkqigpuz/OncologyComment on above:a35Vozkj: 09-16-2023 End: 93-37-0781Mvvndenyp Egokhcfc65/25/2024 10:00 AM EDT Specialty Pharmacy [facility] [address] [id number], [place] [address] Pharmacist, Specialtygroup [address] [place] [address] [address] [place], [place] [address] refill - benlysta-- pa exp: 02/04/24-lvMy[facility] Specialty PharmacyComment on above:refill - benlysta-- pa exp: 02/04/24-lvmStart: 09-13-2023 End: 38-86-0926Kfndpse encounter cgwzcfqah86/22/2024 9:00 AM EDT Office Visit [facility] [address] [place] [address] Kade Early MD [address] [facility] [address] [id number] [facility] NEURStart: 07-19-2023 End: 64-61-3129Vittwku encounter procedureHospital Sisters [facility] Medical Centertart: 07-15-2023 End: 16-17-7731Tnetfar encounter ccktgufhk03/22/2024 10:50 AM EST Office Visit [facility] [address] [place] [address] Bernabe English MD [address] [place] [address] [facility] DERMStart: 07-06-2023 End: 54-30-9904Cajzska encounter jtgtoxrol57/13/2024 2:30 PM EST Office Visit [facility] [address] [place] [address], [place] [phone] Kade Early MD [address] [facility] [address] [place] [address], [place] [address] [facility] NEURO 210Start: 07-06-2023 End: 08-85-7694Omwxlqr electrophoresis, serumProtein electrophoresis, serum Lab Routine Autoimmune disease (CMS/HCC) Autonomic dysfunction Expected: 07/06/2023 (Approximate), Expires: 07/06/2024[facility] Work Phone: Comment on above:Expected: 07/06/2023 (Approximate), Expires: 07/06/2024Start: 07-06-2023 End: 87-53-8623Yjkhxpx electrophoresis, urineProtein electrophoresis, urine Lab Routine Autoimmune disease (CMS/HCC) Autonomic dysfunction Expected: 07/06/2023 (Approximate), Expires: 07/06/2024[facility]Comment [facility]:Expected: 07/06/2023 (Approximate), Expires: 07/06/2024Start: 06-09-2023 End: 53-85-3487Jproky monitor study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 Cardiac Services Routine Irregular heart rate Expected: 06/09/2023 (Approximate), Expires: 06/09/2024[facility] Work Phone: Comment on above:Expected: 06/09/2023 (Approximate), Expires: 06/09/2024Start: 06-09-2023 End: 63-09-3573Tccxj 1996 panel - Serum or PlasmaLipid Panel Lab Routine Primary hypertension Expected: 06/09/2023 (Approximate), Expires: 06/09/2024[facility] Work Phone: Comment on above:Expected: 06/09/2023 (Approximate), Expires: 06/09/2024Start: 06-09-2023 End: 99-50-3006Azwkupcuiar [Units/volume] in Serum or PlasmaThyroid Stimulating Hormone Lab Routine Irregular heart rate Expected: 06/09/2023 (Approximate), Exp ires: 06/09/2024[facility] Work Phone: Comment on above:Expected: 06/09/2023 (Approximate), Expires: 06/09/2024Start: 06-09-2023 End: 75-50-9611Smnwfcsrs (T4) free [Mass/volume] in Serum or PlasmaThyroxine, Free Lab Routine Irregular heart rate Expected: 06/09/2023 (Approximate), Expires: 06/09/2024[facility] Work Phone: Comment on above:Expected: 06/09/2023 (Approximate), Expires: 06/09/2024Start: 06-09-2023 End: 01-30-4291LE Heart TransthoracicTransthoracic Echo (TTE) Complete Echocardiography Routine Irregular heart rate Obstructive sleep apnea syndrome Expected: 06/09/2023 (Approximate), Expires: 06/09/2025[facility] Work Phone: Comment on above:Expected: 06/09/2023 (Approximate), Expires: 06/09/2025Start: 04-25-2023 End: 560893-ibnhuzdbmcwfsx D3 [Mass/volume] in Serum or PlasmaVITAMIN D 25 HYDROXY Lab Routine Vitamin D deficiency Expected: 04/25/2023 (Approximate), Expires: 01/25/2024[facility] Work Phone: Comment on above:Expected: 04/25/2023 (Approximate), Expires: 01/25/2024Start: 04-25-2023 End: 01-25-2024 reactive protein [Mass/volume] in Serum or PlasmaC-REACTIVE PROTEIN (CRP) Lab Routine Elevated sed rate Elevated C-reactive protein (CRP) Expected: 04/25/2023 (Approximate), Expires: 01/25/2024[facility] Work Phone: Comment on above:Expected: 04/25/2023 (Approximate), Expires: 01/25/2024Start: 04-25-2023 End: 69-93-0895HYS panel - Blood by Automated countCBC Lab Routine Anemia of chronic disease Expected: 04/25/2023 (Approximate), Expires: 01/25/2024[facility] Work Phone: Comment on above:Expected: 04/25/2023 (Approximate), Expires: 01/25/2024Start: 04-25-2023 End: 24-58-8186Gzykidcgjyhde metabolic 2000 panel - Serum or PlasmaCOMP METABOLIC PANEL Lab Routine Elevated LFTs Expected: 04/25/2023 (Approximate), Expires: 01/25/2024[facility] Work Phone: Comment on above:Expected: 04/25/2023 (Approximate), Expires: 01/25/2024Start: 04-25-2023 End: 98-28-9984Nbjoblskxyz sedimentation rateSED RATE WESTERGREN Lab Routine Elevated sed rate Elevated C-reactive protein (CRP) Expected: 04/25/2023 (Approximate), Expires: 01/25/2024[facility] Work Phone: Comment on above:Expected: 04/25/2023 (Approximate), Expires: 01/25/2024Start: 41-79-8811GLCQM-19 Vaccine (4 - Pfizer risk series) COVID-19 Vaccine (4 - Pfizer risk series)[facility]: 97-74-1268Fdgop-19 Vaccine ()Covid-19 Vaccine ()[facility]: 85-66-9503Aknbr-19 Vaccine () Covid-19 Vaccine ()[facility]: 04-16-2023 End: 30-05-2879LTV W Auto Differential panel - BloodCBC + DIFF Lab Routine Megaloblastic anemia due to vitamin B12 deficiency Elevated sed rate Chronic fatigue and malaise High total serum IgM JOSE RAFAEL (obstructive sleep apnea) Expected: 04/16/2023 (Approximate), Expires: 02/20/2024[facility] Work Phone: Comment on above:Expected: 04/16/2023 (Approximate), Expires: 02/20/2024Start: 04-16-2023 End: 33-99-3253Eijyqmtpq (Vitamin B12) [Mass/volume] in Serum or PlasmaVITAMIN B12 BLOOD Lab Routine Megaloblastic anemia due to vitamin B12 deficiency Elevated sed rate Chronic fatigue and malaise High total serum IgM JOSE RAFAEL (obstructive sleep apnea) Expected: 04/16/2023 (Approximate), Expires: 02/20/2024[facility] Work Phone: Comment on above:Expected: 04/16/2023 (Approximate), Expires: 02/20/2024Start: 04-16-2023 End: 48-90-6762Lalmfxfdfvjjm metabolic 2000 panel - Serum or PlasmaCOMP METABOLIC PANEL Lab Routine Megaloblastic anemia due to vitamin B12 deficiency Elevated sed rate Chronic fatigue and malaise High total serum IgM JOSE RAFAEL (obstructive sleep apnea) Expected: 04/16/2023 (Approximate), Expires: 02/20/2024[facility] Work Phone: Comment on above:Expected: 04/16/2023 (Approximate), Expires: 02/20/2024Start: 04-16-2023 End: 81-35-7942Tozqephp [Mass/volume] in Serum or PlasmaFERRITIN BLD Lab Routine Megaloblastic anemia due to vitamin B12 deficiency Elevated sed rate Chronic fatigue and malaise High total serum IgM JOSE RAFAEL (obstructive sleep apnea) Expected: 04/16/2023 (Approximate), Expires: 02/20/2024[facility] Work Phone: Comment on above:Expected: 04/16/2023 (Approximate), Expires: 02/20/2024Start: 04-16-2023 End: 10-00-4411Jdlson [Mass/volume] in Serum or PlasmaFOLATE SERUM Lab Routine Megaloblastic anemia due to vitamin B12 deficiency Elevated sed rate Chronic fatigue and malaise High total serum IgM JOSE RAFAEL (obstructive sleep apnea) Expected: 04/16/2023 (Approximate), Expires: 02/20/2024[facility] Work Phone: Comment on above:Expected: 04/16/2023 (Approximate), Expires: 02/20/2024Start: 04-16-2023 End: 32-53-2181Tlnx and Iron binding capacity panel - Serum or PlasmaIRON + TIBC Lab Routine Megaloblastic anemia due to vitamin B12 deficiency Elevated sed rate Chronic fatigue and malaise High total serum IgM JOSE RAFAEL (obstructive sleep apnea) Expected: 04/16/2023 (Approximate), Expires: 02/20/2024[facility] Work Phone: Comment on above:Expected: 04/16/2023 (Approximate), Expires: 02/20/2024Start: 39-34-3038JRQTD-19 Vaccine (3 - Pfizer risk series) COVID-19 Vaccine (3 - Pfizer risk series)[facility]: 13-22-2417Aebtqucx mellitus screeningDiabetes ScreeningUniversity Hospitals [facility]: 03-10-2023 End: 95-89-8161Jtfmycb [Units/volume] in Serum or PlasmaINSULIN ASSAY BLOOD Lab Routine Insulin resistance, unspecified Expected: 03/10/2023, Expires: 06/09[facility] Work Phone: comment on above:Expected: 03/10/2023, Expires: 06/09/2023Start: 03-10-2023 End: 76-22-2907FBHNGYT ANTIBODY BLDINSULIN ANTIBODY BLD Lab Routine Insulin resistance, unspecified Expected: 03/10/2023, Expires: 06/09/2023[facility] Work Phone: comment on above:Expected: 03/10/2023, Expires: 06/09/2023Start: 02-11-2023 End: 57-29-7215Wuta-2-Microglobulin [Mass/volume] in Serum or PlasmaB2 MICROGLOBULIN B Lab Routine Megaloblastic anemia due to vitamin B12 deficiency High total serum IgM Elevated sed rate Expected: 02/11/2023 (Approximate), Expires: 02/08/2024[facility] Work Phone: Comment on above:Expected: 02/11/2023 (Approximate), Expires: 02/08/2024Start: 02-11-2023 End: 04-24-8782Lxrpxoc.ionized [Moles/volume] in BloodCALCIUM IONIZED BLOOD Lab Routine Megaloblastic anemia due to vitamin B12 deficiency High total serum IgM Elevated sed rate Expected: 02/11/2023 (Approximate), Expires: 02/08/[address] [facility] Work Phone: Comment on above:Expected: 02/11/2023 (Approximate), Expires: 02/08/2024Start: 02-11-2023 End: 11-52-9361GCI W Auto Differential panel - BloodCBC + DIFF Lab Routine Megaloblastic anemia due to vitamin B12 deficiency High total serum IgM Elevated sed rate Expected: 02/11/2023 (Approximate), Expires: 02/08/2024[facility] Work Phone: Comment on above:Expected: 02/11/2023 (Approximate), Expires: 02/08/2024Start: 02-11-2023 End: 41-47-1802Uwqaofqah (Vitamin B12) [Mass/volume] in Serum or PlasmaVITAMIN B12 BLOOD Lab Routine Megaloblastic anemia due to vitamin B12 deficiency High total serum IgM Elevated sed rate Expected: 02/11/2023 (Approximate), Expires: 02/08/2024[facility] Work Phone: Comment on above:Expected: 02/11/2023 (Approximate), Expires: 02/08/2024Start: 02-11-2023 End: 24-33-2521Gifhpubyvjsav metabolic 2000 panel - Serum or PlasmaCOMP METABOLIC PANEL Lab Routine Megaloblastic anemia due to vitamin B12 deficiency High total serum IgM Elevated sed rate Expected: 02/11/2023 (Approximate), Expires: 02/08/2024[facility] Work Phone: Comment on above:Expected: 02/11/2023 (Approximate), Expires: 02/08/2024Start: 02-11-2023 End: 31-56-7820Hgyhfbap [Mass/volume] in Serum or PlasmaFERRITIN BLD Lab Routine Megaloblastic anemia due to vitamin B12 deficiency High total serum IgM Nicole vated sed rate Expected: 02/11/2023 (Approximate), Expires: 02/08/2024[facility] Work Phone: Comment on above:Expected: 02/11/2023 (Approximate), Expires: 02/08/2024Start: 02-11-2023 End: 83-20-5236Xczkly [Mass/volume] in Serum or PlasmaFOLATE SERUM Lab Routine Megaloblastic anemia due to vitamin B12 deficiency High total serum IgM Elevated sed rate Expected: 02/11/2023 (Approximate), Expires: 02/08/2024[facility] Work Phone: Comment on above:Expected: 02/11/2023 (Approximate), Expires: 02/08/2024Start: 02-11-2023 End: 37-05-4454Vqay and Iron binding capacity panel - Serum or PlasmaIRON + TIBC Lab Routine Megaloblastic anemia due to vitamin B12 deficiency High total serum IgM Elevated sed rate Expected: 02/11/2023 (Approximate), Expires: 02/08/[address] [facility] Work Phone: Comment on above:Expected: 02/11/2023 (Approximate), Expires: 02/08/2024Start: 02-11-2023 End: 69-99-7550VGVWW/FARMER,FREE,SERKAPPA/FARMER,FREE,SER Lab Routine Megaloblastic anemia due to vitamin B12 deficiency High total serumIgM Elevated sed rate Expected: 02/11/2023 (Approximate), Expires: 04/13/2023[facility] Work Phone: Comment on above:Expected: 02/11/2023 (Approximate), Expires: 04/13/2023Start: 02-11-2023 End: 98-51-7302Wqjcewq dehydrogenase [Enzymatic activity/volume] in Serum or PlasmaLD LACTATE DEHYDRO Lab Routine Megaloblastic anemia due to vitamin B12 deficiency High total serum IgM Elevated sed rate Expected: 02/11/2023 (Approximate), Expires: 02/08/2024[facility] Work Phone: Comment on above:Expected: 02/11/2023 (Approximate), Expires: 02/08/2024Start: 02-11-2023 End: 13-20-9466YDMBKMMYID PROTEIN, SERUM (BLOOD)MONOCLONAL PROTEIN, SERUM (BLOOD) Lab Routine Megaloblastic anemia due to vitamin B12 deficiency High total serum IgM Elevated sed rate Expected: 02/11/2023 (Approximate), Expires: 02/08/2024[facility] Work Phone: Comment on above:Expected: 02/11/2023 (Approximate), Expires: 02/08/2024Start: 02-11-2023 End: 99-40-7114Dixpollhg [Mass/volume] in Serum or PlasmaPHOSPHORUS INORGANIC Lab Routine Megaloblastic anemia due to vitamin B12 deficiency High total serum IgM Elevated sed rate Expected: 02/11/2023 (Approximate), Expires: 02/08/[address] [facility] Work Phone: Comment on above:Expected: 02/11/2023 (Approximate), Expires: 02/08/2024Start: 02-11-2023 End: 76-80-0322ZSDZCOQ ELECTROPHORESIS SERUM W/INTERPPROTEIN ELECTROPHORESIS SERUM W/INTERP Lab Routine Megaloblastic anemia due to vitamin B12 deficiency High total serum IgM Elevated sed rate Expected: 02/11/2023 (Approximate), Expires: 02/08/2024[facility] Work Phone: Comment on above:Expected: 02/11/2023 (Approximate), Expires: 02/08/2024Start: 02-11-2023 End: 57-22-7610Qvfgj [Mass/volume] in Serum or PlasmaURIC ACID BLOOD Lab Routine Megaloblastic anemia due to vitamin B12 deficiency High total serum IgMElevated sed rate Expected: 02/11/2023 (Approximate), Expires: 02/08/2024[facility] Work Phone: Comment on above:Expected: 02/11/2023 (Approximate), Expires: 02/08/2024Start: 27-56-3318Pymbxtxtd vaccinationKettering Health [facility]: 12-17-2022 End: 90-24-3349VNT W Auto Differential panel - BloodCBC + DIFF Lab Routine Megaloblastic anemia due to vitamin B12 deficiency Expected: 12/17/2022 (Appr oximate), Expires: 10/23/2023[facility] Work Phone: Comment on above:Expected: 12/17/2022 (Approximate), Expires: 10/23/2023Start: 12-17-2022 End: 29-25-5853Roizkhwbd (Vitamin B12) [Mass/volume] in Serum or PlasmaVITAMIN B12 BLOOD Lab Routine Megaloblastic anemia due to vitamin B12 deficiency Expected: 12/17/2022 (Approximate), Expires: 10/23/2023[facility] Work Phone: Comment on above:Expected: 12/17/2022 (Approximate), Expires: 10/23/2023Start: 12-17-2022 End: 29-25-8372Gcipubimjojyc metabolic 2000 panel - Serum or PlasmaCOMP METABOLIC PANEL Lab Routine Megaloblastic anemia due to vitamin B12 deficiency Expected: 12/17/2022 (Approximate), Expires: 10/23/2023[facility] Work Phone: Comment on above:Expected: 12/17/2022 (Approximate), Expires: 10/23/2023Start: 12-17-2022 End: 01-44-9916Xufktrxt [Mass/volume] in Serum or PlasmaFERRITIN BLD Lab Routine Megaloblastic anemia due to vitamin B12 deficiency Expected: 12/17/2022 (Ap proximate), Expires: 10/23/2023[facility] Work Phone: Comment on above:Expected: 12/17/2022 (Approximate), Expires: 10/23/2023Start: 12-17-2022 End: 85-15-9466Vcoaop [Mass/volume] in Serum or PlasmaFOLATE SERUM Lab Routine Megaloblastic anemia due to vitamin B12 deficiency Expected: 12/17/2022 (Ap proximate), Expires: 10/23/2023[facility] Work Phone: Comment on above:Expected: 12/17/2022 (Approximate), Expires: 10/23/2023Start: 12-17-2022 End: 71-42-4571Nngx and Iron binding capacity panel - Serum or PlasmaIRON + TIBC Lab Routine Megaloblastic anemia due to vitamin B12 deficiency Expected: 12/17/2022 (Approximate), Expires: 10/23/2023[facility] Work Phone: Comment on above:Expected: 12/17/2022 (Approximate), Expires: 10/23/2023Start: 10-23-2022 End: 863681-lhzkhkqbklezhd D3 [Mass/volume] in Serum or PlasmaVITAMIN D 25 HYDROXY Lab Routine Megaloblastic anemia due to vitamin B12 deficiency Elevated sed rate High total serum IgM Chronic fatigue and malaise JOSE RAFAEL (obstructive sleep apnea) Expected: 10/23/2022, Expires: 12/23/2022[facility] Work Phone: Comment on above:Expected: 10/23/2022, Expires: 12/23/2022Start: 10-23-2022 End: 12-23-2022 reactive protein [Mass/volume] in Serum or PlasmaC-REACTIVE PROTEIN (CRP) Lab Routine Megaloblastic anemia due to vitamin B12 deficiency Elevated sed rate High total serum IgM Chronic fatigue and malaise JOSE RAFAEL (obstructive sleep apnea) Expected: 10/23/2022, Expires: 12/23/2022[facility] Work Phone: Comment on above:Expected: 10/23/2022, Expires: 12/23/2022Start: 10-23-2022 End: 79-58-1692RRO W Auto Differential panel - BloodCBC + DIFF Lab Routine Megaloblastic anemia due to vitamin B12 deficiency Elevated sed rate High total serum IgM Chronic fatigue and malaise JOSE RAFAEL (obstructive sleep apnea) Expected: 10/23/2022, Expires: 12/23/2022[facility] Work Phone: Comment on above:Expected: 10/23/2022, Expires: 12/23/2022Start: 10-23-2022 End: 05-97-4564Tzshaapth (Vitamin B12) [Mass/volume] in Serum or PlasmaVITAMIN B12 BLOOD Lab Routine Megaloblastic anemia due to vitamin B12 deficiency Elevated sed rate High total serum IgM Chronic fatigue and malaise JOSE RAFAEL (obstructive sleep apnea) Expected: 10/23/2022,Expires: 12/23/2022[facility] Work Phone: Comment on above:Expected: 10/23/2022, Expires: 12/23/2022Start: 10-23-2022 End: 84-48-3011Jqhwkstduprod metabolic 2000 panel - Serum or PlasmaCOMP METABOLIC PANEL Lab Routine Megaloblastic anemia due to vitamin B12 deficiency Elevated sed rate High total serum IgM Chronic fatigue and malaise JOSE RAFAEL (obstructive sleep apnea) Expected: 10/23/2022, Expires: 12/23/2022[facility] Work Phone: Comment on above:Expected: 10/23/2022, Expires: 12/23/2022Start: 10-23-2022 End: 40-46-1862Mkvpqpsszxp sedimentation rateSED RATE WESTERGREN Lab Routine Megaloblastic anemia due to vitamin B12 deficiency Elevated sed rate High total serum IgM Chronic fatigue and malaise JOSE RAFAEL (obstructive sleep apnea) Expected: 10/23/2022, Expires: 12/23/2022[facility] Work Phone: Comment on above:Expected: 10/23/2022, Expires: 12/23/2022Start: 10-23-2022 End: 03-14-9369Mdikyto dehydrogenase [Enzymatic activity/volume] in Serum or PlasmaLD LACTATE DEHYDRO Lab Routine Megaloblastic anemia due to vitamin B12 deficiency Elevated sed rateHigh total serum IgM Chronic fatigue and malaise JOSE RAFAEL (obstructive sleep apnea) Expected: 10/23/2022, Expires: 12/23/2022[facility] Work Phone: Comment on above:Expected: 10/23/2022, Expires: 12/23/2022Start: 10-23-2022 End: 04-64-4521HMSBVROWZT PROTEIN, SERUM (BLOOD)MONOCLONAL PROTEIN, SERUM (BLOOD) Lab Routine Megaloblastic anemia due to vitamin B12 deficiency Elevated sed rate High total serum IgM Chronic fatigue and malaise JOSE RAFAEL (obstructive sleep apnea) Expected: 10/23/2022, Expires: 12/23/2022[facility] Work Phone: Comment on above:Expected: 10/23/2022, Expires: 12/23/2022Start: 10-23-2022 End: 69-44-8242JNFK ELECT SERUM WITH DANA AND INTERPPROT ELECT SERUM WITH DANA AND INTERP Lab Routine Megaloblastic anemia due to vitamin B12 deficiencyElevated sed rate High total serum IgM Chronic fatigue and malaise JOSE RAFAEL (obstructive sleep apnea) Expected: 10/23/2022, Expires: 12/23/2022[facility] Work Phone: Comment on above:Expected: 10/23/2022, Expires: 12/23/2022Start: 09-19-2022 End: 75-72-9122QQC panel - Blood by Automated countCBC Lab Routine Anemia of chronic disease Expected: 09/19/2022 (Approximate), Expires: 08/20/2023[facility] Work Phone: Comment on above:Expected: 09/19/2022 (Approximate), Expires: 08/20/2023Start: 09-19-2022 End: 14-80-7497Eolocxqlpwzki metabolic 2000 panel - Serum or PlasmaCOMP METABOLIC PANEL Lab Routine Elevated LFTs Expected: 09/19/2022 (Approximate), Expires: 08/20/2023[facility] Work Phone: Comment on above:Expected: 09/19/2022 (Approximate), Expires: 08/20/2023Start: 09-19-2022 End: 25-22-5829BNMG PHENOTYPE/ENZYME ACTIVITYTPMT PHENOTYPE/ENZYME ACTIVITY Lab Routine 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 Expected: 09/19/2022 (Approximate), Expires: 11/19/2022[facility] Work Phone: Comment on above:Expected: 09/19/2022 (Approximate), Expires: 11/19/2022Start: 08-28-2022 End: 46-56-788199855251-fvwtuktwlzmhfe D3 [Mass/volume] in Serum or PlasmaVITAMIN D 25 HYDROXY Lab Routine Megaloblastic anemia due to vitamin B12 deficiency Elevated sed rate High total serum IgM Chronic fatigue and malaise Expected: 08/28/2022 (Approximate), Expires: 10/28/2022[facility] Work Phone: Comment on above:Expected: 08/28/2022 (Approximate), Expires: 10/28/2022Start: 08-28-2022 End: 26-29-9016Bmba-2-Microglobulin [Mass/volume] in Serum or PlasmaB2 MICROGLOBULIN B Lab Routine Megaloblastic anemia due to vitamin B12 deficiency Elevated sed rateHigh total serum IgM Chronic fatigue and malaise Expected: 08/28/2022 (Approximate), Expires: 07/26/2023[facility] Work Phone: Comment on above:Expected: 08/28/2022 (Approximate), Expires: 07/26/2023Start: 08-28-2022 End: 10-28-2022 reactive protein [Mass/volume] in Serum or PlasmaC-REACTIVE PROTEIN (CRP) Lab Routine Megaloblastic anemia due to vitamin B12 deficiency Elevated sed rate High total serum IgM Chronic fatigue and malaise Expected: 08/28/2022 (Approximate), Expires:10/28/2022[facility] Work Phone: Comment on above:Expected: 08/28/2022 (Approximate), Expires: 10/28/2022Start: 08-28-2022 End: 96-51-5295Ulplcvg.ionized [Moles/volume] in BloodCALCIUM IONIZED BLOOD Lab Routine Megaloblastic anemia due to vitamin B12 deficiency Elevated sed rate High total serum IgM Chronic fatigue and malaise Expected: 08/28/2022 (Approximate), Expires: 07/26/2023[facility] Work Phone: Comment on above:Expected: 08/28/2022 (Approximate), Expires: 07/26/2023Start: 08-28-2022 End: 63-23-7231GDO W Auto Differential panel - BloodCBC + DIFF Lab Routine Megaloblastic anemia due to vitamin B12 deficiency Elevated sed rate High total serum IgM Chronic fatigue and malaise Expected: 08/28/2022 (Approximate), Expires: 07/26/2023[facility] Work Phone: Comment on above:Expected: 08/28/2022 (Approximate), Expires: 07/26/2023Start: 08-28-2022 End: 39-49-9456Jnjistxhv (Vitamin B12) [Mass/volume] in Serum or PlasmaVITAMIN B12 BLOOD Lab Routine Megaloblastic anemia due to vitamin B12 deficiency Elevated sed rate High total serum IgM Chronic fatigue and malaise Expected: 08/28/2022 (Approximate), Expires: 10/28/2022[facility] Work Phone: Comment on above:Expected: 08/28/2022 (Approximate), Expires: 10/28/2022Start: 08-28-2022 End: 44-53-7130Vnaehhqdzdzht metabolic 2000 panel - Serum or PlasmaCOMP METABOLIC PANEL Lab Routine Megaloblastic anemia due to vitamin B12 deficiency Elevated sed rate High total serum IgM Chronic fatigue and malaise Expected: 08/28/2022 (Approximate), Expires: 07/26/2023[facility] Work Phone: Comment on above:Expected: 08/28/2022 (Approximate), Expires: 07/26/2023Start: 08-28-2022 End: 88-76-8090Qrubfazpjcp sedimentation rateSED RATE WESTERGREN Lab Routine Megaloblastic anemia due to vitamin B12 deficiency Elevated sed rate High total serum IgM Chronic fatigue and malaise Expected: 08/28/2022 (Approximate), Expires: 10/28/2022[facility] Work Phone: Comment on above:Expected: 08/28/2022 (Approximate), Expires: 10/28/2022Start: 08-28-2022 End: 01-44-7542YXUDP/FARMER,FREE,SERKAPPA/FARMER,FREE,SER Lab Routine Megaloblastic anemia due to vitamin B12 deficiency Elevated sed rate High total serum IgM Chronic fatigue and malaise Expected: 08/28/2022 (Approximate), Expires: 10/28[facility] Work Phone: Comment on above:Expected: 08/28/2022 (Approximate), Expires: 10/28/2022Start: 08-28-2022 End: 47-81-8071Jbdccgv dehydrogenase [Enzymatic activity/volume] in Serum or PlasmaLD LACTATE DEHYDRO Lab Routine Megaloblastic anemia due to vitamin B12 deficiency Elevated sed rateHigh total serum IgM Chronic fatigue and malaise Expected: 08/28/2022 (Approximate), Expires: 07/26/2023[facility] Work Phone: Comment on above:Expected: 08/28/2022 (Approximate), Expires: 07/26/2023Start: 08-28-2022 End: 11-32-5136QYJDUTICCQ PROTEIN, SERUM (BLOOD)MONOCLONAL PROTEIN, SERUM (BLOOD) Lab Routine Megaloblastic anemia due to vitamin B12 deficiency Elevated sed rate High total serum IgM Chronic fatigue and malaise Expected: 08/28/2022 (Approximate),Expires: 07/26/2023[facility] Work Phone: Comment on above:Expected: 08/28/2022 (Approximate), Expires: 07/26/2023Start: 08-28-2022 End: 51-07-3480Hpoddenwa [Mass/volume] in Serum or PlasmaPHOSPHORUS INORGANIC Lab Routine Megaloblastic anemia due to vitamin B12 deficiency Elevated sed rate High total serum IgM Chronic fatigue and malaise Expected: 08/28/2022 (Approximate), Expires: 07/26/2023[facility] Work Phone: Comment on above:Expected: 08/28/2022 (Approximate), Expires: 07/26/2023Start: 08-28-2022 End: 20-65-1129ZLDKBTI ELECTROPHORESIS SERUM W/INTERPPROTEIN ELECTROPHORESIS SERUM W/INTERP Lab Routine Megaloblastic anemia due to vitamin B12 deficiency Elevated sed rate High total serum IgM Chronic fatigue and malaise Expected: 08/28/2022 (Approximate), Expires: 07/26/2023[facility] Work Phone: Comment on above:Expected: 08/28/2022 (Approximate), Expires: 07/26/2023Start: 08-28-2022 End: 38-80-1389Lujmy [Mass/volume] in Serum or PlasmaURIC ACID BLOOD Lab Routine Megaloblastic anemia due to vitamin B12 deficiency Elevated sed rate High total serum IgM Chronic fatigue and malaise Expected: 08/28/2022 (Approximate), Expires: 07/26/2023[facility] Work Phone: Comment on above:Expected: 08/28/2022 (Approximate), Expires: 07/26/2023Start: 07-15-2022 End: 63-12-9346Vrig-2-Microglobulin [Mass/volume] in Serum or PlasmaB2 MICROGLOBULIN B Lab Routine High total serum IgM Expected: 07/15/2022 (Approximate), Expires: 05/20/2023[facility] Work Phone: Comment on above:Expected: 07/15/2022 (Approximate), Expires: 05/20/2023Start: 07-15-2022 End: 36-34-5867Rglyrgw.ionized [Moles/volume] in BloodCALCIUM IONIZED BLOOD Lab Routine High total serum IgM Expected: 07/15/2022 (Approximate), Expires: 05/20/2023[facility] Work Phone: Comment on above:Expected: 07/15/2022 (Approximate), Expires: 05/20/2023Start: 07-15-2022 End: 36-71-9136DLO W Auto Differential panel - BloodCBC + DIFF Lab Routine High total serum IgM Expected: 07/15/2022 (Approximate), Expires: 05/20/2023[facility] Work Phone: Comment on above:Expected: 07/15/2022 (Approximate), Expires: 05/20/2023Start: 07-15-2022 End: 81-10-0663Dtwaasfqtbvqr metabolic 2000 panel - Serum or PlasmaCOMP METABOLIC PANEL Lab Routine High total serum IgM Expected: 07/15/2022 (Approximate), Expires: 05/20/2023[facility] Work Phone: Comment on above:Expected: 07/15/2022 (Approximate), Expires: 05/20/2023Start: 07-15-2022 End: 59-41-3779JNUXJ/FARMER,FREE,SERKAPPA/FARMER,FREE,SER Lab Routine High total serum IgM Expected: 07/15/2022 (Approximate), Expires: 09/14/2022[facility] Work Phone: Comment on above:Expected: 07/15/2022 (Approximate), Expires: 09/14/2022Start: 07-15-2022 End: 97-55-3652Vlbbnmi dehydrogenase [Enzymatic activity/volume] in Serum or PlasmaLD LACTATE DEHYDRO Lab Routine High total serum IgM Expected: 07/15/2022 (Approximate), Expires: 05/20/2023[facility] Work Phone: Comment on above:Expected: 07/15/2022 (Approximate), Expires: 05/20/2023Start: 07-15-2022 End: 05-31-0129ZRMYAJREJN PROTEIN, SERUM (BLOOD)MONOCLONAL PROTEIN, SERUM (BLOOD) Lab Routine High total serum IgM Expected: 07/15/2022 (Approximate), Expires: 05/20/2023[facility] Work Phone: Comment on above:Expected: 07/15/2022 (Approximate), Expires: 05/20/2023Start: 07-15-2022 End: 67-45-5494Emgnvmlsj [Mass/volume] in Serum or PlasmaPHOSPHORUS INORGANIC Lab Routine High total serum IgM Expected: 07/15/2022 (Approximate), Expires: 1 07/21/2022[facility] Work Phone: Comment on above:Expected: 07/15/2022 (Approximate), Expires: 05/20/2023Start: 07-15-2022 End: 35-75-7790MDVYWAZ ELECTROPHORESIS SERUM W/INTERPPROTEIN ELECTROPHORESIS SERUM W/INTERP Lab Routine High total serum IgM Expected: 07/15/2022 (Approx imate), Expires: 05/20/2023[facility] Work Phone: Comment on above:Expected: 07/15/2022 (Approximate), Expires: 05/20/2023Start: 07-15-2022 End: 17-18-1542Sesvy [Mass/volume] in Serum or PlasmaURIC ACID BLOOD Lab Routine High total serum IgM Expected: 07/15/2022 (Approximate), Expires: 05/20/[address] [facility] Work Phone: Comment on above:Expected: 07/15/2022 (Approximate), Expires: 05/20/2023Start: 06-05-2022 End: 189720-uobpqervqlabqs D3 [Mass/volume] in Serum or PlasmaVITAMIN D 25 HYDROXY Lab Routine Vitamin D deficiency Expected: 06/05/2022 (Approximate), Expires: 03/05/2023[facility] Work Phone: Comment on above:Expected: 06/05/2022 (Approximate), Expires: 03/05/2023Start: 06-05-2022 End: 03-05-2023 reactive protein [Mass/volume] in Serum or PlasmaC-REACTIVE PROTEIN (CRP) Lab Routine Elevated sed rate Elevated C-reactive protein (CRP) Expected: 06/05/2022 (Approximate), Expires: 03/05/2023[facility] Work Phone: Comment on above:Expected: 06/05/2022 (Approximate), Expires: 03/05/2023Start: 06-05-2022 End: 68-99-7353Sejvrmqtk (Vitamin B12) [Mass/volume] in Serum or PlasmaVITAMIN B12 BLOOD Lab Routine Vitamin B12 deficiency Expected: 06/05/2022 (Approximate), Expires: 03/05/2023[facility] Work Phone: Comment on above:Expected: 06/05/2022 (Approximate), Expires: 03/05/2023Start: 06-05-2022 End: 10-27-2312Qpriugsubfn sedimentation rateSED RATE WESTERGREN Lab Routine Elevated sed rate Elevated C-reactive protein (CRP) Expected: 06/05/2022 (Approximate), Expires: 03/05/2023[facility] Work Phone: Comment on above:Expected: 06/05/2022 (Approximate), Expires: 03/05/2023Start: 05-06-2022 End: 99-05-5673Zdgc-2-Microglobulin [Mass/volume] in Serum or PlasmaB2 MICROGLOBULIN B Lab Routine Megaloblastic anemia due to vitamin B12 deficiency High total serum IgM Expected: 05/06/2022 (Approximate), Expires: 03/18/[address] [facility] Work Phone: Comment on above:Expected: 05/06/2022 (Approximate), Expires: 03/18/2023Start: 05-06-2022 End: 54-08-5499Bwauxcm.ionized [Moles/volume] in BloodCALCIUM IONIZED BLOOD Lab Routine Megaloblastic anemia due to vitamin B12 deficiency High total serum IgM Expected: 05/06/2022 (Approximate), Expires: 03/18/2023[facility] Work Phone: Comment on above:Expected: 05/06/2022 (Approximate), Expires: 03/18/2023Start: 05-06-2022 End: 43-15-2148TMC W Auto Differential panel - BloodCBC + DIFF Lab Routine Megaloblastic anemia due to vitamin B12 deficiency High total serum IgM Expec zabrina: 05/06/2022 (Approximate), Expires: 03/18/2023[facility] Work Phone: Comment on above:Expected: 05/06/2022 (Approximate), Expires: 03/18/2023Start: 05-06-2022 End: 79-41-4647Rxkshwrvnxfrg metabolic 2000 panel - Serum or PlasmaCOMP METABOLIC PANEL Lab Routine Megaloblastic anemia due to vitamin B12 deficiency High total serum IgM Expected: 05/06/2022 (Approximate), Expires: 03/18/[address] [facility] Work Phone: Comment on above:Expected: 05/06/2022 (Approximate), Expires: 03/18/2023Start: 05-06-2022 End: 50-08-2321Fsqsflhs [Mass/volume] in Serum or PlasmaFERRITIN BLD Lab Routine Megaloblastic anemia due to vitamin B12 deficiency High total serum IgM Exp ected: 05/06/2022 (Approximate), Expires: 03/18/2023[facility] Work Phone: Comment on above:Expected: 05/06/2022 (Approximate), Expires: 03/18/2023Start: 05-06-2022 End: 43-38-3073Wwqr and Iron binding capacity panel - Serum or PlasmaIRON + TIBC Lab Routine Megaloblastic anemia due to vitamin B12 deficiency High total serum IgM Expected: 05/06/2022 (Approximate), Expires: 03/18/2023[facility] Work Phone: Comment on above:Expected: 05/06/2022 (Approximate), Expires: 03/18/2023Start: 05-06-2022 End: 88-04-9565Irnlzgo dehydrogenase [Enzymatic activity/volume] in Serum or PlasmaLD LACTATE DEHYDRO Lab Routine Megaloblastic anemia due to vitamin B12 deficiency High total serum IgM Expected: 05/06/2022 (Approximate), Expires: 03/18/2023[facility] Work Phone: Comment on above:Expected: 05/06/2022 (Approximate), Expires: 03/18/2023Start: 05-06-2022 End: 42-41-3309OWYDEKJSKX PROTEIN, SERUM (BLOOD)MONOCLONAL PROTEIN, SERUM (BLOOD) Lab Routine Megaloblastic anemia due to vitamin B12 deficiency High total serum IgM Expected: 05/06/2022 (Approximate), Expires: 03/18/2023[facility] Work Phone: Comment on above:Expected: 05/06/2022 (Approximate), Expires: 03/18/2023Start: 05-06-2022 End: 79-89-4080Plpxbggov [Mass/volume] in Serum or PlasmaPHOSPHORUS INORGANIC Lab Routine Megaloblastic anemia due to vitamin B12 deficiency High total serum IgM Expected: 05/06/2022 (Approximate), Expires: 03/18/2023[facility] Work Phone: Comment on above:Expected: 05/06/2022 (Approximate), Expires: 03/18/2023Start: 05-06-2022 End: 09-46-1215MXNXVTW ELECTROPHORESIS SERUM W/INTERPPROTEIN ELECTROPHORESIS SERUM W/INTERP Lab Routine Megaloblastic anemia due to vitamin B12 deficiency High total serum IgM Expected: 05/06/2022 (Approximate), Expires: 03/18/[address] [facility] Work Phone: Comment on above:Expected: 05/06/2022 (Approximate), Expires: 03/18/2023Start: 05-06-2022 End: 34-86-8108Yjojh [Mass/volume] in Serum or PlasmaURIC ACID BLOOD Lab Routine Megaloblastic anemia due to vitamin B12 deficiency High total serum IgM Expected: 05/06/2022 (Approximate), Expires: 03/18/2023[facility] Work Phone: Comment on above:Expected: 05/06/2022 (Approximate), Expires: 03/18/2023Start: 16-65-3999WUNOP-19 VACCINE (5 - Pfizer risk series) COVID-19 VACCINE (5 - Pfizer risk series)[facility]22 End: 20-34-7412Yazpnxltty A1c in BloodHGB A1C Lab Routine Elevated glucose Expected: 03/09/2022, Expires: 05/09/2022[facility] Work Phone: comment on above:Expected: 03/09/2022, Expires: 05/09/2022tart: 02-24-2022 End: 95-75-3689EBPUJSTZUH AB PANELBARTONELLA AB PANEL Lab Routine Swelling of lymph nodes Expected: 02/24/2022, Expires: 04/26/2022[facility] Work Phone: comment on above:Expected: 02/24/2022, Expires: 04/26/2022tart: 02-24-2022 End: 36-49-9245UDVOLXOP AB TOTALBRUCELLA AB TOTAL Lab Routine Swelling of lymph nodes Expected: 02/24/2022, Expires: 04/26/2022[facility] Work Phone: comnlba on above:Expected: 02/24/2022, Expires: 04/26/2022tart: 02-24-2022 End: 46-75-7643Jcgmutyxrsmz sp Ag [Presence] in Unspecified specimen by Latex agglutinationCRYPTOCOCCUS AG DET Microbiology Routine Swelling of lymph nodes Expected: 02/24/2022, Expires: 04/26/2022[facility] Work Phone: comment on above:Expected: 02/24/2022, Expires: 04/26/2022tart: 02-24-2022 End: 29-36-5690KERHKYEUABS AG URINEHISTOPLASMA AG URINE Lab Routine Swelling of lymph nodes Expected: 02/24/2022, Expires: 04/26/2022[facility] Work Phone: comifsk on above:Expected: 02/24/2022, Expires: 04/26/2022tart: 02-24-2022 End: 94-63-4905NXA 1 RNA [#/volume] (viral load) in Serum or Plasma by YESSI with probe detectionHIV RNA VIRAL LOAD Lab Routine Swelling of lymph nodes Expected: 02/24/2022, Expires: 04/26/2022[facility] Work Phone: comment on above:Expected: 02/24/2022, Expires: 04/26/2022tart: 02-24-2022 End: 42-92-5888MMRCWDGD TOTAL W/REFLEXSYPHILIS TOTAL W/REFLEX Lab Routine Swelling of lymph nodes Expected: 02/24/2022, Expires: 04/26/2022[facility] Work Phone: comment on above:Expected: 02/24/2022, Expires: 04/26/2022tart: 63-50-7529Cfrgtiktl vaccinationKettering Health Daytontart: 06-30-1868HRTOC-19 VACCINE (4 - Booster for Pfizer series)COVID-19 VACCINE (4 - Booster for Pfizer series)[facility]: 05-37-7711Ruksqsnzu vaccination Flu vaccine (Season Ended)[facility] Work Phone: start: 09-33-1870Seyut panelCincinnati Shriners Hospitaltart: 94-92-5018YmtytggwypzPsphlzdfi ClinicStart: 59-97-1869Lyjxppnyl for malignant neoplasm of breastK[facility]tering Health Daytontart: 73-25-4468MCL TESTINGHPV TESTING [facility]: 20-78-9193Domrvczxi for malignant neoplasm of cervix [facility]: 04-83-2102UYH VACCINE (1 - 3-dose SCDM series)HPV VACCINE (1 - 3-dose SCDM series)[facility]: 75-21-5522WYS Vaccine (1 - Risk 3-dose SCDM series)HPV Vaccine (1 - Risk 3-dose SCDM series)[facility]: 64-11-9033MBD Vaccines (1 - 3-dose SCDM series)HPV Vaccines (1 - 3- dose SCDM series)[facility]: 06-15-1540CIhE/Tdap/Td Vaccines (1 - Tdap)DTaP/Tdap/Td Vaccines (1 - Tdap)[facility]Start: 14-02-4790IPY TESTINGPAP TESTINGKettering Health Daytontart: 42-68-7626Ncwzdyatv for malignant neoplasm of cervixKettering Health Daytontart: 60-66-5411XWwJ,Tdap and Td Vaccines (1 - Tdap)DTaP,Tdap and Td Vaccines (1 - Tdap)[facility] Start: 68-77-2418NOrW/Tdap/Td vaccine (1 - Tdap)DTaP/Tdap/Td vaccine (1 - Tdap) [employer] Work Phone: start: 69-41-9736Zbpcxokiz B vaccinationHEP B VACCINE (1 of 3 - 19+ 3-dose series)[facility]: 14-34-9982Ffotihtns B Vaccine (1 of 3 - 19+ 3-dose series)Hepatitis B Vaccine (1 of 3 - 19+ 3-dose series)[facility]: 11-00-3840Wclflmund B Vaccines (1 of 3 - 19+ 3- dose series)Hepatitis B Vaccines (1 of 3 - 19+ 3-dose series)[facility]: 85-42-4335Kqmrvnjfzlao vaccinationPneumococcal Vaccine (1 of 2 - PCV)[facility]: 00-00-8395Unxjcibzwfkc Vaccine: Pediatrics and At-Risk Adult Patients (1 of 2 - PCV)Pneumococcal Vaccine: Pediatrics and At-Risk Adult Patients (1 of 2 - PCV)[facility] HospitalStanguilla: 96-17-2759CQOJPXED VACCINE (1 of 2)SHINGRIX VACCINE (1 of 2) [facility]: 94-13-7098Akwce diphtheria, tetanus and acellular pertussis (DTaP) vaccinationTDAP (ADULT)[facility]: 10-05-1999 Urine microalbumin profileKettering Health Daytontart: 34-02-3487Lrlgdt Vaccines (1 of 2)Zoster Vaccines (1 of 2)[facility] HospitalStart: 1998 Adult BMI Follow Up PlanAdult BMI Follow Up PlanFormerly Albemarle Hospitaltart: 52-75-5377Bowgu BMI ScreeningAdult BMI ScreeningFormerly Albemarle Hospitaltart: 17-66-0327Ufvcxol ScreeningAnxiety ScreeningKettering Health Daytontart: 1998 Hepatitis C screeningHepatitis C ScreeningSt. Vincent Hospital Start: 75-50-6333JXT SCREENINGHIV SCREENINGKettering Health Daytontart: 41-30-6054ARH screeningHIV ScreeningKettering Health Daytontart: 59-63-7180QTL screeningCincinnati Shriners Hospitaltart: 56-52-9029Wzabmcl of varicella vaccinationVaricella Vaccines (1 of 2 - 13+ 2-dose series)[facility] CenterStart: 99-54-6103Pcrykvloq vaccination Varicella Vaccines (1 of 2 - 13+ 2-dose series)[facility] Start: 74-42-9937LDGAI-19 Vaccine (1)COVID-19 Vaccine (1)[employer] Phone: start: 52-45-6815Uvgeekkcum ScreeningDepression ScreeningFormerly Albem[facility]le Hospitaltart: 05-54-7073Yttlbwd ScreeningTobacco ScreeningFormerly [facility]em[facility]le Hospitaltart: 52-06-0714Umlfhtzxz for malignant neoplasm of cervixCervical Cancer ScreeningKettering Health Daytontart: 10-05-1987 DTaP/Tdap/Td Vaccines (1 - Tdap)DTaP/Tdap/Td Vaccines (1 - Tdap)[facility] Start: 09-40-3294SJUZNOFWTERP (1 - PCV)PNEUMOCOCCAL (1 - PCV)[facility] Start: 44-56-3728Rxkennrrwkdo vaccinationKettering Health Daytontart: 1986 Pneumococcal Vaccine: Pediatrics (0 to 5 Years) and At-Risk Patients (6 to 64 Years) (1 - PCV)Pneumococcal Vaccine: Pediatrics (0 to 5 Years) and At-Risk Patients (6 to 64 Years) (1 - PCV)[facility]: 99-47-9163GVU Vaccines (1 of 1 - Standard series)MMR Vaccines (1 of 1 - Standard series)[facility]: 18-48-0203Ogmcxgnhf vaccination Varicella Vaccines (1 of 2 - 2-dose childhood series)[facility]: 27-81-3755Uaoezcoav vaccine (1 of 2 - 2-dose childhood series) Varicella vaccine (1 of 2 - 2-dose childhood series)[employer] Phone: start: 03-12-8669HQGBSIGTR B (1 of 3 - 3-dose series) HEPATITIS B (1 of 3 - 3-dose series)[facility]: 00-71-5139Vszxkyinv B Vaccine (1 of 3 - 3-dose series)Hepatitis B Vaccine (1 of 3 - 3-dose series) [facility]: 36-83-2711Ofglkyvga B Vaccines (1 of 3 - 3-dose series) Hepatitis B Vaccines (1 of 3 - 3-dose series)[facility] Start: 33-17-0469Bgkcjlvja C screeningCincinnati Shriners Hospitaltart: 20-52-2252CVP screeningHIV ScreeningSt. Vincent HospitalStart: 29-94-5261JVT Vaccine: Recommended Based On RiskHPV Vaccine: Recommended Based On Risk [facility]: 46-58-3772Hcbrw panelLipid PanelUnAshtabula General HospitalStart: 56-10-0951Kvvcnaivp for osteoporosisBone Density ScanUniversity Hospitals TriPoint [facility]: 39-33-6499Uuzrebm vaccinationTETANUSAHocking Valley Community Hospital SystemStart: 27-23-4265Rerlgle CounselingTobacco CounselingProEast Liverpool City Hospital SystemStart: 80-10-2882Xktxad Adult PhysicalYearly Adult PhysicalUnAshtabula General Hospital25-hydroxyvitamin D3 [Mass/volume] in Serum or Plasma VITAMIN D 25 HYDROXY Lab Routine Vitamin D deficiency 01/11/2025 1:48 PM EDT [facility]imaAEROBIC CULTUREAEROBIC CULTURE Lab Routine 03/02/2025 5:17 PM [facility] [place] Work Phone: ANAEROBIC CULTUREANAEROBIC CULTURE Lab Routine 03/02/2025 5:17 PM EDSy[facility], [place]abethtonBacteria identified in Unspecified specimen by Aerobe cultureUniversity Hospitals St. John Medical CenterBacteria identified in Unspecified specimen by Anaerobe cultureUniversity Hospitals St. John Medical CenterBLOOD TB SCREENBLOOD TB SCREEN Lab Routine Screening-pulmonary TB 01/11/2025 1:48 PM EDTCleveland ClinicC reactive protein [Mass/volume] in Serum or PlasmaC-REACTIVE PROTEIN Lab Routine Elevated sed rate Elevated C-reactive protein (CRP) 01/11/2025 1:48 PM EDTCleveland ClinicCardiovascular function eval w/tilt table w/mntrTILT TABLE EVALUATION Cardiology Routine POTS (postural orthostatic tachycardia syndrome) Ordered: 2Ckettering health ham[facility]and [facility] Work Phone: comment on above:Ordered: 10/17/2022CBC W Auto Differential panel - BloodCBC and differential Lab Routine Menorrhagia with regular cycle Ordered: 03/23/2024[facility] Work Phone: comment on above:Ordered: 03/23/2024hronic hepatitis differentiation between hepatitis B and C virus panel - Serum or PlasmaHEP REMOTE PANEL BL Lab Routine Elevated LFTs 01/11/2025 1:48 PM [facility]TCM[facility] Cobalamin (Vitamin B12) [Mass/volume] in Serum or PlasmaVITAMIN B12 Lab Routine Vitamin B12 deficiency 01/11/2025 1:48 PM EDTCMercy Health Willard HospitalCT Abdomen W contrast [facility] End: 50-64-6599TGR-AXIAL SKELETONDXA-AXIAL SKELETON Radiology Routine Steroid- induced osteoporosis 1 Occurrences starting 02/04/2023until 03/05/2024[facility] Work Phone: Comment on above:1 Occurrences starting 02/04/2023 until 03/05/2024 End: 09-05-4781GEK-FOREARM SKELETONDXA-FOREARM SKELETON Radiology Routine Steroid-induced osteoporosis 1 Occurrences starting 02/04/2023 until 03/05/[address] [facility] Work Phone: Comment on above:1 Occurrences starting 02/04/2023 until 03/05/2024ECG 12 LeadECG 12 Lead ECG Routine Irregular heart rate 06/09/2023 8:28 AM [facility] Work Phone: Erythrocyte sedimentation rateSEDIMENTATION RATE, WESTERGREN Lab Routine Elevated sed rate Elevated C-reactive protein (CRP) 01/11 1:48 PM [facility] Work Phone: hCG, quantitative, pregnancyhCG, quantitative, Lab Routine Menorrhagia with regular cycle Ordered: 03/23/2024[facility] HealthcareComment on above:Ordered: 03/23/2024Hemoglobin A1c/Hemoglobin.total in BloodHemoglobin A1c Lab Routine Menorrhagia with regular cycle Ordered: 03/23/2024[facility] HealthcareComment on above:Ordered: 03/23/2024Hepatitis B virus [...] LFTs 01/11/2025 1:48 PM EDTCleveland Clinic End: 55-24-0131TKQH SLEEP APNEA TEST (HSAT)HOME SLEEP APNEA TEST (HSAT) Procedures Routine Somnolence, daytime Snoring 1 Occurrences starting 03/09/2022 until 03/09/2023[facility] Work Phone: comment on above:1 Occurrences starting 03/09/2022 until 03/09/2023HYDROGEN BREATH TEST B/OHYDROGEN BREATH TEST B/O Procedures Routine Diarrhea, unspecified type Abdominal pressure Ordered: 06/14/2024[facility] Work Phone: comment on above:Ordered: 06/14/2024Oxygen therapy [Minimum Data Set]Initiate Oxygen Therapy Protocol Respiratory Care Routine Daily until discontinued starting 10/07/2020[facility] Work Phone: comment on above:Daily until discontinued starting 10/07/2020atient EducationC[facility] Clinic [facility] Work Phone: Patient referralCleveland Clinic [facility] Work Phone: End: 39-33-6803TyuoehcuwvbalCTAPPNQCLLFAV (PSG) Procedures Routine Somnolence, daytime Snoring 1 Occurrences starting 03/04/2022 until [facility] Work Phone: Comment on above:1 Occurrences starting 03/04/2022 until 3Prothrombin time (PT) in Blood by Coagulation assayProtime-INR Lab Routine Menorrhagia with regular cycle Ordered: 03/23/2024[facility] Comment on above:Ordered: 03/23/2024THIN PREP TIS PAP AND HR HPV DNATHIN PREP TIS PAP AND HR HPV DNA Pathology and Cytology Routine Well woman exam with routine gynecological exam Ordered: 06/06/2024[facility] HealthcareComment on above: Ordered: 06/06/2024Thyrotropin [Units/volume] in Serum or PlasmaTSH Lab Routine Menorrhagia with regular cycle Ordered: 03/23/2024[facility] HealthcareComment on above:Ordered: 03/23/2024Thyroxine (T4) free [Mass/volume] in Serum or PlasmaT4, free Lab Routine Menorrhagia with regular cycle Ordered: 03/23/2024[facility] HealthcareComment on above:Ordered: 03/23/2024XR Thoracic spine 3 [facility] Immunizations Immunization DateImmunizationNotesCare ScmdxdyaIdrcgruz19-34-8600PSOUZ-46 vaccine, age 12+ yr, season (PFIZER-BIONTMaxLinear)Lynne Ni MD Work Phone: [facility] LimaOixyoj74-84-9343ZNRLF-80 mRNA Bivalent Booster (Pfizer)[employer] De [employer] Work Phone: [facility]01-03-2022COVID-19 mRNA, Comirnaty (Pfizer)Gay De [employer] Work Phone: [facility]05-29-2021COVID-19 mRNA, Comirnaty (Pfizer)Gay De [employer] Work Phone: [facility]05-08-2021COVID-19 mRNA, Comirnaty (Pfizer)Gay De La [employer]re [employer] Work Phone: [facility] Payers DatePayer CategoryPayerPolicy [id number] [facility] [id number] 2017Medicaid (Managed Care) [id number] Hospital MEDICAID Member Subscriber Plan / Payer (Effective 2017-Present) Name: Ariadna Haley Relation to Subscriber: Self Name: Ariadna Haley Payer ID: Not on file Group ID: [id number] Type: Not on file Address: [address] [place] [id number] [facility] [id number] 2017-Present [address] [place] [id number] 2010MedicaidCARESOURCEidCARESOURCE MEDICAID CARESOURCE MEDICAID [id number] 2009-Present [phone] [address] [place] [address] [id number] 2010Medicaid [id number] 2.16840.1.360082.3.579.2.27884-54-6051Yuczrsz3481677 2.840.1.575227.3.579.2.77219-23-8046Reomyvg0370076 2.16840.1.216531.3.579.2.37464-06-9330Ndqckra6876145 2.16840.1.840635.3.579.2.15232-21-1651Vffucln4425611 2.16840.1.677332.3.579.2.62774-44-1701Hbpqiuw6476216 2.16840.1.603716.3.579.2.84566-90-5074Likmzmg7881530 2.16840.1.923759.3.579.2.41398-18-6003Pyvrkgi337149627 2.16840.1.821245.3.579.2.782222-94-3536Mqsmsdy10556911 2.0.1.084225.3.579.2.284264-80-8769Jmsbkom88231557 2.16840.1.796436.3.579.2.38550-67-5996Ytlkshp45121603 2.0.1.948000.3.579.2.165786-51-4432Sgjhugo88233739 2.0.1.161693.3.579.2.309795-10-9943Ouagxeo51700092 2..1.592457.3.579.2.337548-52-9963Eudzkcz10068198 2..1.368810.3.579.2.016879-25-5632Nygxlmb36578542 2..1.196055.3.579.2.491777-28-7916Dttqpmm8336281 2..1.116955.3.579.2.959245-14-8396Bghftsc6825572 2..1.671384.3.579.2.873108-77-6695Rltpeaf4306344 2..1.310985.3.579.2.385483-02-4938Ogyxfhy5759308 2..1.718894.3.579.2.147828-43-4983Vyrgkee1919174 2..1.946752.3.579.2.793205-97-9166Wkmoftg5221280390873-45-7610Ybzirnj 307857838493Kzhpdka38742020 2.0.1.033542.3.579.2.380Fwwfqze85981070 2.0.1.279996.3.579.2.055Osquulm28013073 2.16.840.1.641861.3.579.2.531 Euhjtav43520303 2.16.840.1.210906.3.579.2.340Zblbmqk60495754 2.16.840.1.492077.3.579.2.286Luseosc87106030 2.16.840.1.848651.3.579.2.531 Xlifdlg59541424 2.16.840.1.589085.3.579.2.531 Social History DateTypeDetailFacilityStart: 05-24-1995 End: 69-21-7298Jeklfmy smoking status NHISCurrent every day smokerKettering Health Daytontart: 10-07-2020 End: 23-14-7951Hethgbk use and exposureNever usedOhiohealth Mansfield HospitalStart: 10-07-2020 End: 37-86-2501Tiaotoz intakeLifetime non-drinker (finding)[facility] [email or web address].com Phone: start: 84-81-4777Pohzjsu SDOH Alcohol Jvryktwzq3Qactg Health Work Phone: start: 66-52-0343Oil Assigned At BirthNot on [facility] Phone: start: 02-22-2022 End: 07-32-5370Sdmxmpne to SARS-CoV-2 (event)Not sureOhiohealth Mansfield HospitalStart: 55-21-0587Zwxiklp of tobacco useCigarette SmokerKettering Health Daytontart: 05-31-2014 End: 28-97-8683Ipvgvxiayv smoked current (pack per day) - Yaznxbuv0Napeyxiny ClinicStart: 10-24-2021 End: 32-07-3791Kbtsyuh intakeCurrent non-drinker of alcohol (finding)[facility]art: 10-14-2021 End: 16-30-6559Trkphwpq to SARS-CoV-2 (event)Unable to assessScci Hospital Lima Start: 10-22-2022 End: 19-98-5516Jvs Assigned At BirthKettering Health Daytontart: 05-31-2014 End: 23-87-4205Fkwdm Depression Screening Ciloifuxgc6Erzgzwxsk ClinicStart: 70-89-5076Rawmyip CommentCurrent smoker, everyday, 11-20 cigarettes/dayNOMI HealthcareStart: 52-98-7732Fbxsnme CommentCaffeine intake : > 4 cups per dayNOMI HealthcareStart: 08-19-2016 End: 84-84-9557Ecylwof smoking status NHISSmoker (finding)[facility] Cent[facility]art: 08-18-0671Hup Assigned At [facility] Centertart: 07-02-2016 End: 21-68-8908LniJxhfaw (finding)[facility] Centertart: 41-03-1756Tjpjrs identityIdentifies as female gender (finding)[facility] Goals DatePatient GoalDesired Activity/State Functional Status UeqeGfhdliysrvSkijsvNqhlvrah17-47-2579Yge you deaf, or do you have serious difficulty hearingNo 12/25/2014 11:14 AM Chichi Womack Ma [facility] HospitalAgerpj97-10-0584Lba you blind, or do you have serious difficulty seeing, even when wearing glassesNo 12/25/2014 11:14 AM Chichi Womack Ma [facility]08-04-2015Do you have serious difficulty walking or climbing stairsYes 12/25/2014 11:14 AM Chichi Womack Ma [facility]08-04-2015Do you have difficulty dressing or bathingYes 12/25/2014 11:14 AM Chichi Womack [facility] CenterIwhwor00-19-3178Leyxqug of a physical, mental, or emotional condition, do you have difficulty doing errands alone such as visiting a physician's office or shoppingNo 12/25/2014 11:14 AM Chichi Womack Ma [facility] Mental Status ZnrnQozbkauuaaLpptvqDsifmruu45-98-0169Uiqhokc of a physical, mental, or emotional condition, do you have serious difficulty concentrating, remembering, or making decisionsNo 12/25/2014 11:14 AM Chichi Womack Ma [facility] Clinical Notes 05-31-2014 to 03-23-2025 Note Date & GkfqHoraRwmpvlbi32-65-6050 History of Present illness Narrative* Terence Pacheco [...] abscess. 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 If the patient does require surgical procedure for this, she can contact us. No evidence of infection from her pilonidal incision and drainage site. She does not require prolonged antibiotics for this. Next appointment: 04/09/2025 documented in this encounterSSM DePaul Health CenterOziaqwgfux62-07-2713 NoteTuscarawas Hospital10-22-2025 History of Present illness Narrative* Stacy [...] with abscess/Referralfrom Dr. Gay De La Torre- [facility]. 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 Ongoing [...] hydroxychloroquine, steroids pred 10 mg po daily ([facility]) Hx of 12/2024: Tb and HBV and [...] Insecurity: No Food Insecurity (04/06/2024) Received from [employer] [facility] Hunger Screening Within the past [...] Personal Safety: Unknown (07/15/2023) Received from [facility] [...] - Patient has follow up by Rheumatology [facility] in his on prednisone, hydroxychloroquine and Benlysta Opportunistic infection screening - Patient did have hepatitis-C, hepatitis-B and TB testing. 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 Thank you for this consultation. Please note Portions of this note utilized [employer] dictation software, please excuse any typographical or [...] daily., Disp: , Rfl: Ergocalciferol 1.25 MG (14713 UT) capsule, Take 1 capsule by mouth [...] 2 times daily., Disp: , Rfl: Nystatin 657130 UNIT/ML oral suspension, Swish and spit 4 [...] Other., Disp: , Rfl: documented in this [facility]10-08-2025 History of Present illness Narrative* Terence Pacheco [...] on prednisone. She follows with [facility] rheumatology and also with [facility] sawyer tology/oncology. She states she does have [...] Chronic laryngopharyngitis COVID-19 vaccine administered x 2 (PollVaultr) Difficulty walking Fatigue Fibromyalgia, primary GERD (gastroesophageal [...] her dressing changes at documented in this encounterSSM DePaul Health CenterErwlwagwni15-20-4911 NoteTuscarawas Hospital10-01-2025 NoteTuscarawas Hospital09-24-2025 History of Present illness Narrative* Bernabe [...] obtained from the patient/parent. Method: See [facility] for details on administration. 0.1 [...] Next Visit: as scheduled documented in this encounterSSM DePaul Health CenterIutamfvlun38-05-9541 NoteTuscarawas Hospital09-03-2025 History of Present illness Narrative* Elena Alfonso RN - 01/24/2025 3:40 PM EDT Pt did not receive B12 injection today. Pt called & agreeable to receive it when she returns in2 weeks for her Benlysta infusion. Pharmacy aware and moving date. Elena Alfonso, RN documented in this encounterScci Hospital [facility]ima08-28-2025 Telephone encounter Note * Telephone Encounter - Merry Chairez RN - 01/18/2025 5:09 PM EDT MC message read by patient . [facility]08-28-2025 Miscellaneous Notes* Telephone Encounter - Merry Chairez [...] IV, start prior authorization documented in this encounterScci Hospital Lima08-28-2025 Telephone encounter Note * Telephone Encounter - [...] sq benlysta to IV, start prior authorization [facility]08-27-2025 Chief complaint+Reason for visit Narrative* Chief Complaint [...] :50am Sacroiliitis March 13, 2025 8 :50am [facility] Work Phone: 1(211) 858-888208-27-2025 Evaluation note* Diagnosis Onset Date Resolution Status Admit Date Lumbosacral spondylosis acuteAugust 2024 10:29amOther chronic painacuteAugust 2024 10:29am SacroiliitisacuteAugust 2024 10:29amLumbosacral spondylosisacuteSeptember 2024 9:23amMid back painacuteSeptember 2024 9:23amOther chronic pain acuteSeptember 2024 9:23amSacroiliitisacuteSeptember 2024 9:23am Abdominal pressureacuteOctober 2024 1:29pmDyspepsiaacuteOctober 2024 1:29pmFatty liveracuteOctober 2024 1:29pmGERD (gastroesophageal reflux disease)acuteOctober 2024 1:29pmLumbosacral spondylosisacuteOctober 2024 8:50amOther chronic painacuteOctober 2024 8:50amSacroiliitisacute March 13, 2025 8:50am [facility] Work Phone: 1(170) 808-793907-24-2025 NoteHNO ID: [id number] Author: JHONATHAN CONDE RN Service: ? Author Type: Registered Nurse Type: Progress Notes Filed: 12/14/2024 16:36 Note Text: Ran over 2 hours per patient request.[facility]07-24-2025 History of Present illness Narrative* Jhonathan Conde RN - 12/14/2024 3:58 PM EDT Ran over 2 hours per patient request. documented in this encounterScci Hospital Lima07-24-2025 NoteTuscarawas Hospital07-24-2025 History of Present illness Narrative* Ama Esparza - 12/14/2024 11:03 AM EDT CMN RECEIVED BY [email or web address] VIA FAX, COMPLETED, AND PLACED IN PROVIDER MAILBOX FOR SIGNATURE Ama Esparza [employer] SENDING CMN: Josh SIGNED AND DATED CMN, FAXED TO DME & CONFIRMATION PAGE RECEIVED: 12.14.2024 documented in this encounterScci Hospital Lima07-22-2025 Evaluation note* Diagnosis Onset Date Resolution Status [...] 2024 1:29pmGERD (gastroesophageal reflux disease)acuteOctober 2024 1:29pm [facility] Work Phone: 1(335) 997-280907-10-2025 Evaluation note* Diagnosis Onset Date Resolution Status [...] painacuteSeptember 2024 9:23amSacroiliitisacute February 14, 2025 9:23am [facility] Work Phone: 1(728) 740-114107-10-2025 Telephone encounter Note* Telephone Encounter - Enma Hamm RN - 11/30/2024 8:36 AM EDT Pt updated on results. Will continue with IVIG, as previously scheduled. Denied further needs or concerns at this time. Enma Hamm RN [facility]07-10-2025 Miscellaneous Notes* Telephone Encounter - Enma Hamm RN - 11/30/2024 8:36 AM EDT Pt updated on results. Will continue with IVIG, as previously scheduled. Denied further needs or concerns at this time. Enma Hamm RN documented in this encounterScci Hospital Lima07-09-2025 NoteTuscarawas Hospital07-09-2025 History of Present illness Narrative* Vaibhav Carvalho APRN.CNP - 11/29/2024 8:43 AM EDT Images from the original note were not included. NAME: Ariadna Haley [facility] NO.: [id number] DATE OF SERVICE: .November 29, 2024 (Deven) [...] to monitor; no current intervention required per [facility] recommendations. 7. Pre-diabetes (R73.03) Borderline diabetic. Previously [...] requiring a recent corticosteroid injection by her switchboard inspector. She experiences intermittent fatigue, shortness of breath, [...] B12 today. Updated Visit, June 13, 2024: Aridana returns today for a follow-up visit. She [...] lower lip done 2 days ago at [facility] - awaiting results. B12 helps [...] injections. 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 She has been told they [...] subcutaneously one time a week. Per PCP juimetogsfZQWHX-vfibyr-navigrgld (BMX 1:1:1) 1:1:1 liqd Take 5 mL [...] (Crohn's [Other]) Mother . Vaibhav Carvalho APRN, FLAT SHEET MAKER-C, [facility] Provided at: [place], [place] CC: Manuel Ferris MD [address] [address] documented in this encounterScci Hospital Lima07-03-2025 History of Present illness Narrative* KELVIN Pope [...] with ILK today. ILK today, see [facility] for details. Consent: The risks and benefits of intralesional kenalog were discussed prior to the procedure. Specifically, the risk of skin atrophy was reviewed. It was also emphasized that multiple treatments may be necessary. Verbal consent was obtained from the patient/parent. Method: See [facility] for details on administration. 0.2 [...] Next Visit: as scheduled documented in this encounterRhonda [place] [address]Juqyzuhosu34-20-8083 Telephone encounter Note* Telephone Encounter - Renea Schneider MA - 11/20/2024 12:00 PM EDT Patient coming in for treatment visit Wednesday11/29/24. Please add lab orders. thanks. Renea Schneider MA [facility]06-23-2025 Chief complaint+Reason for visit Narrative* Chief Complaint [...] :29am Sacroiliitis January 17, 2025 10 :29am [facility] Work Phone: 1(647) 698-762306-23-2025 Chief complaint+Reason for visit Narrative * Chief [...] :29am Sacroiliitis January 17, 2025 10 :29am [facility] Work Phone: 1(466) 840-216006-23-2025 Evaluation note* Diagnosis Onset Date Resolution Status Admit Date Lumbosacral spondylosis acuteJune 2024 11:15amOther chronic painacuteJune 2024 11:15am SacroiliitisacuteJune 2024 11:15amLumbosacral spondylosisacuteJuly 2024 9:03amOther chronic painacuteJuly 2024 9:03amSacroiliitisacuteJuly 2024 9:03amAbdominal burning sensation in left upper quadrantacuteJuly 2024 10:42amAbdominal massacuteJuly 2024 10:42amAbdominal painacute December 12, 2024 10:42amBloatingacuteJuly 2024 10:42amConstipationacuteJuly 2024 10:42amDyspepsiaacuteJuly 2024 10:42amLumbosacral spondylosis acuteAugust 2024 10:29amOther chronic painacuteAugust 2024 10:29am SacroiliitisacuteAugust 2024 10:29am [facility] Work Phone: 1(529) 834-220105-17-2025 History of Present illness Narrative* Lynne Ni [...] Either the patient or their legal medical device sales representative has been informed of the [...] easures, may consider osteoporosis treatment if on laborer marine terminal steroids/abnormal bmd, take vitamin D script once [...] neurology/on metoprolol for POTs, avoid aggravating triggers, laborer marine terminal pain recommendations per primary care provider/pain clinic/patient [...] measures, may consider osteoporosis treatment if on laborer marine terminal steroids/abnormal bmd, take vitamin D script once [...] neurology/on metoprolol for POTs, avoid aggravating triggers, laborer marine terminal pain recommendations per primary care provider/pain clinic/patient [...] measures, may consider osteoporosis treatment if on laborer marine terminal steroids/abnormal bmd, take vitamin D script [...] neurology/on metoprolol for POTs, avoid aggravating triggers, 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 Labs sent to [place]/completed in 06/2021 (no results faxed to office, but patient pulled up results on her phone). Chronic current pain in neck, flank area, mid back, knees, legs, arms, all over pain. Better with lyrica 75mg 3times a day. Reports pain 4-8/10. Couple hrs AM stiffness. COVID vaccine PollVaultr 09/28/20, 10/19/20, 05/26/21. Feels safe at home. [...] pain: yes H/o precedent/frequent infection(s): as above Enthesopathy/Morriston's/heel/plantar tenderness: hands random painful/tingling Skin thickening, psoriasis, [...] COVID-19 original vaccine, age 12+ yr, monovalent (Carticipate - PURPLE TOP) 09/28/2020 10/19/2020 05/26/2021 COVID-19 vaccine, age 12+ yr (Carticipate COMIRNATY) 02/23/2023 COVID-19 vaccine, age 12+ yr, bivalent (Carticipate) 02/08/2022 Pneumovax no Flu shot no Tetanus [...] (33);NL cbc, cmp, negative hla b27; Outside [place] 06/2021 low vitamin D 16, vitamin b12-307;high [...] Z79.899 Long-term use of high-risk medication Z79.52 [facility] current use of systemic steroids M79.641, M79.642 [...] ures, may consider osteoporosis treatment if on laborer marine terminal steroids/abnormal bmd, take vitamin D script once [...] (200mg) daily with a meal Please see job coach every 6-12months while on Hydroxychloroquine. reStart azathioprine [...] video & audio (virtual) or phone or svpi-as-mpnj patient care, completing clinical documentation, obtaining and/or [...] Workers' Compensation? No Do you need an data entry assistant? No [facility] MYCHART ZOOM MESSAGE Question 10/06/2024 9:06 PM [...] my health Strongly Agree documented in this encounterScci Hospital [facility]ima05-17-2025 NoteTuscarawas Hospital05-17-2025 Instructions* Patient Instructions* Lynne Ni MD [...] (200mg) daily with a meal Please see job coach every 6-12months while on Hydroxychloroquine. azathioprine daily [...] touching your toes, sit-ups, using row machine laborer marine terminal pain recommendations per primary care provider/pain [...] your usual activities immediately. documented in this encounterScci Hospital Lima05-16-2025 Telephone encounter Note * Telephone Encounter - Beatriz Sanchez LPN - 10/06/2024 1:46 PM EDT VM left that below message forwarded to her MC. Requested return call if unable to view message. [facility]05-16-2025 Miscellaneous Notes* Telephone Encounter - Beatriz Sanchez [...] accordingly. Lynne Ni MD documented in this encounterScci Hospital Lima05-16-2025 Telephone encounter Note * Telephone Encounter - [...] above. Please process accordingly. Lynne Ni MD [facility]04-30-2025 NoteTuscarawas Hospital04-30-2025 Note [facility]04-29-2025 History of Present illness Narrative* Deborah Arroyo, [facility] - 09/19/2024 10:00 AM EDT Patient Name [...] GENETIC TESTING: None. SOCIAL HISTORY: Lives in [place], [place] with her and daughter. 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 - Partner's ethnicity: not applicable. - No known -Tajik, Mediterranean, /Fijian, Bangladeshi-British/Cajun, or Ashkenazi Sabianist ancestry unless noted above. - Parental consanguinity: [...] via the connective tissue disorder panel at [facility] for Ariadna's daughter. Follow up [...] greater than 50% of which was spent bdwk-vg-itxa counseling. This plan is being carried out per Dr. Lance's recommendations. Deborah Arroyo, MS, [facility] [place] Licensed Genetic Counselor EPIC CC: Dr. Last Lance CC: Ariadna Haley Via [email or web address] documented in this encounterScci Hospital [facility]ima04-29-2025 NoteTuscarawas Hospital04-29-2025 NoteTuscarawas Hospital04-29-2025 History of Present illness Narrative* Ny Lance MD - 09/19/2024 7:46 AM EDT Images from the original note were not included. Department of Medical Genetics and Genomics OUTPATIENT NEW VISIT NOTE Recording using [employer] software for draft documentation of the visit was discussed with the patient/authorized medical device sales representative; all questions welcomed and answered. Patient/authorized medical device sales representative agreed to proceed Patient Name: [...] has a history of using a palate hair clipper power. She reports delayed wound healing, possible hyperextensible [...] Gangrene - 02/04/2023 Steroid-Induced Osteoporosis - 02/04/2023 Parking Attendant Current Use of Systemic Steroids - 02/04/2023 [...] subcutaneously one time a week. Per PCP hpkqfxactrLXZEM-rlnyaf-hoeggetuf (BMX 1:1:1) 1:1:1 liqd Take 5 mL [...] visit. PAST MEDICAL HISTORY: I have reviewed [facility] on September 19, 2024 PAST MEDICAL HISTORY [...] OF ablation SOCIAL HISTORY: - Lives in [place], [place] with her and daughters. - Highest level of education: High school. 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 Paternal - . - No known -Tajik, Mediterranean, /Fijian, Ashkenazi Sabianist, Bangladeshi-British/Cajun, or Maxwell ancestry unless noted above. - [...] pedigree was collected by Deborah Arroyo MS, [facility] [place] at the patient's separate genetic counseling encounter. The pedigree will be scanned into [employer]. This information was reviewed with thefamily and [...] Reza (Eds.), David Becerrilmann, Ho, 2003, ISBN [phone]; Examination and Treatment of a Patient with [...] symptoms when present, recommending follow-up with a scalloper. 2. Chronic pain syndrome (G89.4) Chronic joint [...] 87 minutes was spent with patient for qwao-xv-bett evaluation, discussion of genetic differential diagnoses, management plan, counseling, chart review, documentation and coordination of care. Portions of family history were obtained by Deborah Arroyo MS, [facility] [place], which were reviewed with family and edited as necessary. All questions were answered to the best of my knowledge. Contact information has been provided to the patient. Ny Lance MD Staff Contractor Field Hauling Department of Medical Genetics and Genomics (DMGG) [facility] Appointments: [facility] CC: Deborah Arroyo MS, [facility] [place] [place] Ariadna Haley (via [email or web address]) [address] [place] [id number] Lynne Ni MD CC to PCP via fax: Manuel Ferris [address] [place] [address] documented in this encounterScci Hospital Lima04-28-2025 Telephone encounter Note * Telephone Encounter - Lynne Ni MD - 09/18/2024 4:52 PM EDT Notify patient medication sent as requested Thank you. Patient's request for medication is as follows: Requested Prescriptions Pending Prescriptions Disp Refills belimumab (BENLYSTA) 200 mg/mL auto-injector 12 mL 3 Sig: Inject 200mg (1 pen) subcutaneously once weekly Prescription(s) as above. Please process accordingly. Lynne Ni MD [facility]04-28-2025 Miscellaneous Notes* Telephone Encounter - Lynne Ni [...] (1 pen) subcutaneously once weekly Patient prefers: [facility] Thank you! Maria Esther Pichardo, PharmD Clinical Pharmacist, [employer] [facility] ; Pool: P [facility] Pool #: [id number] documented in this encounterScci Hospital Lima04-28-2025 Telephone encounter Note * Telephone Encounter - Macarena Sanchez - 09/18/2024 4:03 PM EDT Patient will be calling to reschedule her IV IG and benlysta. She needs to find a account development representative and will call back with the dates that she will be available. [facility]04-28-2025 Miscellaneous Notes* Telephone Encounter - Macarena Sanchez - 09/18/2024 4:03 PM EDT Patient will be calling to reschedule her IV IG and benlysta. She needs to find a account development representative and will call back with the dates that she will be available. documented in this encounterScci Hospital Lima04-28-2025 Telephone encounter Note * Telephone Encounter - [...] (1 pen) subcutaneously once weekly Patient prefers: [facility] Thank you! Maria Esther Pichardo, PharmD Clinical Pharmacist, [employer] [facility] ; Pool: P [facility] Pool #: [id number] [facility]04-22-2025 Telephone encounter Note* Telephone Encounter - Karina Pino - 09/12/2024 2:35 PM EDT Patient has been scheduled at [facility]04-22-2025 Miscellaneous Notes* Telephone Encounter - Karina Pino - 09/12/2024 2:35 PM EDT Patient has been scheduled at [facility] * Telephone Encounter - Sherrie Cortes - [...] scheduling for the drug. Cesilia Hicks [facility] You25 minutes ago (11:20 AM) Please schedule her every 2 weeks for 3 doses, then every 4 weeks for Benlysta. Cesilia Vicente Laura [facility] You27 minutes ago (11:18 AM) LS [...] to Rheum provider. Anahi Becerril RN nurse occupational health manager: patient would like to know if she can bring her 8 year old [facility] institutein the summer. Basia Samuel RN documented in this encounterS[facility]04-22-2025 Telephone encounter Note * Telephone Encounter - Sherrie Cortes - 09/12/2024 2:13 PM EDT Patient called back and is now in agreement to schedule for Benlysta. Patient has been scheduled for Wednesday, 09/18. She will make her future appointments at this visit when she can work around her family arrangements. Spoke w/ T Wyatt regarding daughter recommendations and patient informed. Sherrie Cortes [facility]04-21-2025 Telephone encounter Note* Telephone Encounter - Sherrie [...] week after her SQ dose. Cesilia Vicente [facility]04-17-2025 Telephone encounter Note* Telephone Encounter - Lynne Ni MD - 09/07/2024 12:52 PM EDT Please start prior authorization for IV benlysta Signed therapy plan with loading doses if approved by insurance. May schedule 1week after last sq injection benlysta pen if approved. Thank you [facility]04-17-2025 Telephone encounter Note* Telephone Encounter - Enma Hamm RN - 09/07/2024 9:04 AM EDT Results discussed with pt. She is set for IVIG 10/04/24. She denies further questions needs or concerns at this time. Enma Hamm RN [facility]04-17-2025 Miscellaneous Notes* Telephone Encounter - Enma Hamm RN - 09/07/2024 9:04 AM EDT Results discussed with pt. She is set for IVIG 10/04/24. She denies further questions needs or concerns at this time. Enma Hamm RN documented in this encounterScci Hospital [facility]ima04-16-2025 Evaluation note* Diagnosis Onset Date Resolution Status Admit Date Lumbosacral spondylosis acuteApril 2024 3:42pmOther chronic painacuteApril 2024 3:42pm SacroiliitisacuteApril 2024 3:42pmLumbosacral spondylosisacuteJune 2024 11:15amOther chronic painacuteJune 2024 11:15amSacroiliitisacuteJune 2024 11:15am [facility] Work Phone: 1(556) 228-151104-16-2025 Evaluation note* Diagnosis Onset Date Resolution Status Admit Date Lumbosacral spondylosis acuteApril 2024 3:42pmOther chronic painacuteApril 2024 3:42pm SacroiliitisacuteApril 2024 3:42pmLumbosacral spondylosisacuteJune 2024 11:15amOther chronic painacuteJune 2024 11:15amSacroiliitisacuteJune 2024 11:15amLumbosacral spondylosisacuteJuly 2024 9:03amOther chronic painacuteJuly 2024 9:03amSacroiliitisacuteJuly 2024 9:03am [facility] Work Phone: 1(746) 525-325804-16-2025 Telephone encounter Note* Telephone Encounter - Basia Samuel RN - 09/06/2024 4:20 PM EDT Patient has requested to switch from Benlysta injections to infusions. Will forward to Rheum provider. Anahi Becerril RN nurse occupational health manager: patient would like to know if she can bring her 8 year old to treatmentsin the summer. Basia Samuel RN [facility]04-16-2025 History of Present illness Narrative* Vaibhav Carvalho APRN.CNP - 09/06/2024 9:00 AM EDT Images from the original note were not included. NAME: Ariadna Haley CLINIC NO.: [id number] DATE OF SERVICE: September 06, 2024 (Deven) [...] lower lip done 2 days ago at [facility] - awaiting results. B12 helps [...] injections. 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 She has been told they [...] but decreasing. Initial Visit, March 04, 2022: Aridana Haley presents today Hematology and Oncology evaluation. [...] THREE TIMES A DAY^Disp: 135 tablet^Rfl: 1 mwokprqxojRLAGY-nxmdjw-uqdfdtett (BMX 1:1:1) 1:1:1 liqd^Take 5 mL by [...] (Crohn's [Other]) Mother . Vaibhav Carvalho APRN, FLAT SHEET MAKER-C, OCN Hematology and Oncology Services Provided at: [place], [place] CC: Manuel Ferris MD [address] [address] documented in this encounterScci Hospital [facility]ima04-16-2025 NoteT[facility]car[facility]04-14-2025 History of Present illness Narrative* Gordo Barfield MD - 09/04/2024 3:20 PM EDT Subjective Patient ID: Ariadna Haley is a 43 y.o. female who presents for Thyroid Nodule (Follow up ultrasound [facility] 08/24/24) Thyroid US shows a 99c2h2co left inf pole TR4 nodule. 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 02/04/2023 Long-term use of high-risk medication 06/15/2022 Long-term use of Plaquenil 03/05/2021 LPRD (laryngopharyngeal reflux disease) 07/06/2023 Megaloblastic anemia due to vitamin B12 deficiency 03/04/2022 Myalgia 07/06/2023 Obesity, Class III, BMI 40-49.9 (morbid obesity) ([facility]) 09/07/2022 Obstructive sleep apnea syndrome [...] Insulin resistance 03/07/2024 Lupus erythematosus 04/06/2024 Sacroiliitis (CMS/[facility]) 04/06/2024 Resolved Ambulatory Problems Diagnosis Date Noted No Resolved Ambulatory Problems Past Medical History: Diagnosis Date Cervical lymphadenopathy COVID-19 vaccine administered Difficulty walking Fatigue Fibromyalgia, primary History of removal of cyst 2012 HTN (hypertension) (CMS/HCC) Hx of abnormal cervical Pap smear 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 Patient stated will complete labs a walk in [facility]04-[facility] Miscellaneous Notes* Telephone Encounter - Blank Kimball [...] diagnoses: Vitamin D deficiency documented in this encounterScci Hospital [facility]ima04-11-2025 Telephone encounter Note * Telephone Encounter - [...] above. Please process accordingly. Lynne Ni MD [facility]04-11-2025 Telephone encounter Note* Telephone Encounter - Cora [...] Ni MD Assoc. diagnoses: Vitamin D deficiency [facility]04-07-2025 Telephone encounter Note* Telephone Encounter - Renea Schneider MA - 08/28/2024 11:04 AM EDT Do you want labs? Patient coming in Wednesday09/06/24 for follow up treatment. Thanks, Renea Schneider MA [facility]04-01-2025 Miscellaneous Notes* Telephone Encounter - Renea Schneider MA - 08/28/2024 11:04 AM EDT Do you want labs? Patient coming in Wednesday09/06/24 for follow up treatment. Thanks, Renea Schneider MA documented in this encounterScci Hospital [facility]ima04-01-2025 Miscellaneous Notes* Telephone Encounter - Renea Schneider MA - 11/20/2024 12:00 PM EDT Patient coming in for treatment visit Wednesday11/29/24. Please add lab orders. thanks. Renea Schneider MA documented in this encounterScci Hospital [facility]ima03-27-2025 NoteTuscarawas Hospital03-18-2025 Telephone encounter Note* Telephone Encounter - [...] and patient is aware. Basia Samuel RN [facility]03-18-2025 Miscellaneous Notes* Telephone Encounter - Basia Samuel [...] aware. Basia Samuel RN documented in this encounterScci Hospital [facility]ima03-18-2025 NoteTuscarawas Hospital03-18-2025 History of Present illness Narrative* Basia Samuel RN - 08/08/2024 9:03 AM EDT Patient states that she spoke with provider and she will defer IV iron for now, she is taking oral iron and will have labs rechecked in 1 month Basia Samuel RN documented in this encounterScci Hospital [facility]ima03-05-2025 History of Present illness Narrative* Lois Holm [...] treated by rheumatology at the [facility] on steroids, Plaquenil and monoclonal antibody [...] , Rfl: ergocalciferol (Vitamin D-2) 1.25 MG (70636 UT) capsule, Take 1 capsule (50,000 Units) [...] discussion and plan. documented in [facility] encounterSt. [facility] Work Phone: 1(249) 109-492903-05-2025 Instructions* Patient Instructions* Aissatou Hanson RN - [...] of your visit. documented in this encounterSt. [facility] Hospital Work Phone: 1(379) 445-259403-04-2025 History of Present illness Narrative* Bernabe English [...] ointment bid. On Plaquenil and Benlysta from pond worker and started IVIG from etl informatica developer. Follow up Diagnosis: Hidradenitis Location: thighs [...] given frequent flares of thrush. Start Nystatin 397414 unit suspension qid x 14 days. Recommended [...] not swallow it. Related Medications nystatin (Mycostatin) 999516 UNIT/ML suspension Take 4 mL (400,000 Units) [...] is needed. Instructed to follow up with OIL PIPELINE DISPATCHER for further work up. Next Visit: 1 year documented in this encounterSSM DePaul Health [id number] History of Present illness Narrative* Luna Emanuel [...] been reviewed prior to dispensing the medication. Water Attendant Assessment Patient confirmed: Yes Med/dose confirmed: Yes Supplies needed: No supplies needed Missed doses: No Copay amount: 0 Payment confirmed: Yes Delivery method: FedEx Signature required: Waived on patient request Delivery address: [address] [place] [address] Delivery date: 07/27/24 Questions or concerns for the pharmacist?: No Did you have any side effects believed to be related to this medication, that resulted in hospitalization?: No Current Outpatient Medications on File Prior to Visit Medication Sig jhybgnkxthHLWWT-svqnny-dfrdhiedb (BMX 1:1:1) 1:1:1 liqd Take 5 mL [...] facility-administered medications on file prior to visit. [facility] RX SPECIALTY CLINICAL ASSESSMENT - [...] longer tolerated. Luna Emanuel documented in this encounterScci Hospital [facility]ima03-04-2025 NoteTuscarawas Hospital02-27-2025 NoteHNO ID: [id number] Author: ALHAJI VICTORIA, DO Service: ? Author Type: Physician Type: Progress Notes Filed: 07/21/2024 13:05 Note Text: VIRTUAL VISIT PROGRESS NOTE This is a virtual visit using [employer] Video Visit. It required patient-provider interaction for the medical decision making as documented below. I have communicated my name and active licensure. The patient's identity and physical location were verified at the time of this visit. Either the patient or their legal medical device sales representative has been informed of the [...] of 18 Current Outpatient Medications Medication Sig bfeoutehodTQGDM-pusifn-etsydabfp (BMX 1:1:1) 1:1:1 liqd Take 5 mL [...] WHILE ON* belimumab ( (more content not included)...[facility]02-27-2025 History of Present illness Narrative* Alhaji Victoria DO - 07/20/2024 11:41 AM EST VIRTUAL VISIT PROGRESS NOTE This is a virtual visit using [email or web address] Zoom Video Visit. It required patient- provider interaction for the medical decision making as documented below. I have communicated my name and active licensure. The patient's identity and physical location wereverified at the time of this visit. Either the patient or their legal medical device sales representative has been informed of the [...] of 18 Current Outpatient Medications Medication Sig aboilscjtpQKYPZ-siyihc-wzviubets (BMX 1:1:1) 1:1:1 liqd Take 5 mL [...] the R. The patient or authorized medical device sales representative has agreed to proceed with the sensitive examination. (Sensitive examination includes inspection and/or palpation of the breasts, pelvis, prostate and anorectal regions) Review OSH labs and breast imaging results CRP 0.1 Sed rate stable for the past 8 months, (27-32 consistently) ASSESSMENT/ PLAN: Impressions brought forward from prior, reviewed and edited as needed today. Airadna Haley is a 43 year old female [...] axillary nodule which is being followed by montessori paraprofessional. Through shared decision making with the patient, [...] DO July 21, 2024 documented in this encounterScci Hospital [facility]ima02-26-2025 [address] [id number] Pain Management Procedure Note Signed Patient: Ariadna Haley MR#: [id number] : 1980 Acct:[id number] Age/Sex: 43 / F Adm Date: 5 Loc: Room: Type: [facility] Attending Dr: Adolfo Kang MD Copies [...] MD 07/19/24 1104 Signed By: 07/19/[address] [facility]02-19-2025 Instructions* Patient Instructions* Marky Gasca PA-C - 07/12/2024 2:33 PM EST Alginate therapy (Reflux Raft, Reflux Gourmet) documented in this encounterScci Hospital Lima02-19-2025 NoteTuscarawas Hospital02-19-2025 History of Present illness Narrative* Marky Gasca PA-C - 07/12/2024 2:14 PM EST Images from the original note were not included. [facility] [place] [facility] NOTE CC: Ariadna Haley is a [...] Current medication(s): Current Outpatient Medications Medication Sig ahghdzkculUIMWW-txusee-cwbswdywv (BMX 1:1:1) 1:1:1 liqd Take 5 mL [...] Level: 3 - Low documented in this encounterScci Hospital [facility]ima02-17-2025 Evaluation note* Diagnosis Onset Date Resolution Status Admit Date Lumbosacral spondylosis acuteFebruary 2024 3:16pmOther chronic painacuteFebruary 2024 3:16pm SacroiliitisacuteFebruary 2024 3:16pm [facility] Work Phone: 1(662) 838-425102-17-2025 Evaluation note* Diagnosis Onset Date Resolution Status Admit Date Lumbosacral spondylosis acuteFebruary 2024 3:16pmOther chronic painacuteFebruary 2024 3:16pm SacroiliitisacuteFebruary 2024 3:16pmLumbosacral spondylosisacuteMarch 2024 3:40pmOther chronic painacuteMarch 2024 3:40pmSacroiliitisacute July 31, 2024 3:40pm [facility] Work Phone: 1(877) 275-449002-17-2025 Telephone encounter Note* Telephone Encounter - Krista Braswell MA - 07/10/2024 7:28 AM EST Pt was notified via . [facility]02-17-2025 Miscellaneous Notes* Telephone Encounter - Krista Fonseca [...] accordingly. Lynne Ni MD documented in this encounterScci Hospital [facility]ima02-16-2025 Telephone encounter Note * Telephone Encounter - Lynne Ni MD - 07/09/2024 3:48 PM EST Please Call patient if MyChart note not read to review results/released to My Chart if tests completed at [facility]: Mildly high normal wbc, glucose, one [...] above. Please process accordingly. Lynne Ni MD [facility]02-06-2025 History of Present illness Narrative* Luna Emanuel - 06/29/2024 1:13 PM EST [facility] Specialty Refill Assessment Medication(s): Benlysta Patient's [...] been reviewed prior to dispensing the medication. Water Attendant Assessment Patient confirmed: Yes Med/dose confirmed: Yes Supplies needed: No supplies needed Missed doses: No Estimated days supply on hand: 1 Copay amount: 0 Payment confirmed: Yes Delivery method: FedEx Signature required: Waived on patient request Delivery address: [address] [place] [address], [facility] [id number] Delivery date: 07/05/24 Questions or concerns for [...] facility-administered medications on file prior to visit. [facility] RX SPECIALTY CLINICAL ASSESSMENT - INFLAMMATORY CONDITIONS [...] of efficacy and/or no longer tolerated. Luna Emanule documented in this encounterScci Hospital [facility]ima02-06-2025 NoteTuscarawas Hospital01-31-2025 Telephone encounter Note* Telephone Encounter - Krista Fonseca MA - 06/23/2024 8:27 AM EST Pt has been notified via [employer]. [facility]01-31-2025 Miscellaneous Notes* Telephone Encounter - Krista Fonseca MA - 06/23/2024 8:27 AM EST Pt has been notified via [employer]. * Telephone Encounter - Lynne Ni MD [...] accordingly. Lynne Ni MD documented in this encounterScci Hospital [facility]ima01-30-2025 Telephone encounter Note * Telephone Encounter - [...] above. Please process accordingly. Lynne Ni MD [facility]01-29-2025 Telephone encounter Note* Telephone Encounter - Sherrie Cortes - 06/21/2024 2:10 PM EST Thanks for the clarification! I didn't schedule the patient yet for Iron because of the question below so we are all good. Thank you! Sherrie Cortes [facility]01-29-2025 Miscellaneous Notes* Telephone Encounter - Sherrie Cortes [...] we will recheck. thanks documented in this encounterScci Hospital [facility]ima01-29-2025 Telephone encounter Note * Telephone Encounter - [...] is aware you will call if needed. [facility]01-29-2025 Telephone encounter Note* Telephone Encounter - Vaihbav Carvalho APRN.CNP - 06/21/2024 1:07 PM EST Ok that is fine she can try oral iron Ferrous sulfate 325 mg every other day. Ok to keep her next appointment and we will recheck. thanks [facility]01-28-2025 Telephone encounter Note* Telephone Encounter - Sherrie Cortes - 06/20/2024 8:38 AM EST Left another message for patient. Sent NinthDecimalhart to call back to schedule infusions when she's ready to schedule and provided phone number. Sherrie Cortes [facility]01-28-2025 Miscellaneous Notes* Telephone Encounter - Sherrie Cortes [...] callback with any questions. documented in this encounterScci Hospital [facility]ima01-24-2025 Telephone encounter Note * Telephone Encounter - Sherrie Cortes - 06/16/2024 3:32 PM EST Call placed to patient, no answer. Left detailed message to call back to schedule for Venofer. Sherrie Cortes [facility]01-24-2025 Telephone encounter Note* Telephone Encounter - Vaibhav Carvalho APRN.CNP - 06/16/2024 12:26 PM EST Called patient and left a message regarding iron infusions. I did inform patient that she is low oniron and we can replace with IV infusion. Will have the office call to schedule. Encouraged to callback with any questions. [facility]01-23-2025 Telephone encounter Note* Telephone Encounter - KELVIN [...] Pt had recent mammogram that was negative [facility] [id number] Miscellaneous Notes* Telephone Encounter - KELVIN Cabrera [...] mammogram that was negative documented in this encounterSSM DePaul Health CenterQjzdgetgbe29-37-7188 History of Present illness Narrative* Iraida Pate APRN.TRUE - 06/14/2024 10:43 AM EST Glucose - SIBO CPT 43604 Hydrogen Breath Test Ariadna Haley 1980 June 14, 2024 Referring Physician: Bandar Portillo NP Indication: NSG TEST INDICATIONS: Diarrhea R19.7, Abdominal Pressure R10.9 Weight: 275 lbs Location: [facility] Duration of Test: 2 hrs [...] Signature: Iraida Pate APRN.CNP documented in this encounterScci Hospital [facility]ima01-21-2025 Progress note* [facility] - Dionne Driver, [...] 13, 2024 TIME: 10:29 AM PAGER/CONTACT #: [facility]01-21-2025 Miscellaneous Notes* [facility] - Dionne Driver, [...] 10:29 AM PAGER/CONTACT #: documented in this encounterScci Hospital [facility]01-21-2025 NoteTuscarawas Hospital01-21-2025 History of Present illness Narrative* Vaibhav Carvalho APRN.CNP - 06/13/2024 9:07 AM EST Images from the original note were not included. NAME: Ariadna Haley [facility] NO.: [id number] DATE OF SERVICE: June 13, 2024 (Deven) [...] lower lip done 2 days ago at [facility] - awaiting results. B12 helps [...] there. Updated Visit, August 27, 2022: Ariadna Hlaey returns for follow-up and B12 injection. She has missed a few B12 injections. 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 She has been told they [...] (Crohn's [Other]) Mother . Vaibhav Carvalho APRN, FLAT SHEET MAKER-C, OCN Hematology and Oncology Services Provided at: [place], [place] CC: Manuel Ferris MD [address] [facility] [id number] documented in this encounterScci Hospital [facility]01-20-2025 NoteTuscarawas Hospital01-20-2025 History of Present illness Narrative* Lee Friedman - 06/12/2024 2:31 PM EST CMN RECEIVED BY [email or web address] VIA FAX, COMPLETED, AND PLACED IN PROVIDER MAILBOX FOR SIGNATURE Lee Friedman Coordinator III [facility] SENDING CMN: Josh SIGNED AND DATED CMN, FAXED TO DME & CONFIRMATION PAGE RECEIVED: 06.28.2024 documented in this encounterScci Hospital [facility]01-20-2025 Telephone encounter Note * Telephone Encounter - Margret Cuenca MA - 06/12/2024 12:00 PM EST Patient has an OTV appointment on 06/13. Please place lab orders. Margret Cuenca MA [facility]01-20-2025 Miscellaneous Notes* Telephone Encounter - Margret Cuenca MA - 06/12/2024 12:00 PM EST Patient has an OTV appointment on 06/13. Please place lab orders. Margret Cuenca MA documented in this encounterScci Hospital [facility]01-14-2025 History of Present illness Narrative* Luna Emanuel [...] been reviewed prior to dispensing the medication. Water Attendant Assessment Patient confirmed: Yes Med/dose confirmed: Yes Supplies needed: No supplies needed Missed doses: No Estimated days supply on hand: 1 Copay amount: 0 Payment confirmed: Yes Delivery method: FedEx Signature required: Waived on patient request Delivery address: [address] [place] [id number] Delivery date: 06/08/24 Questions or concerns for [...] facility-administered medications on file prior to visit. [facility] RX SPECIALTY CLINICAL ASSESSMENT - [...] longer tolerated. Luna Emanuel documented in this encounterScci Hospital [facility]ima01-14-2025 NoteTuscarawas Hospital01-14-2025 History of Present illness Narrative* KELVIN [...] Ambulatory Problems Diagnosis Date Noted Autoimmune disease ([facility]) 06/01/2023 Fibromyalgia 06/01/2023 Autonomic dysfunction [...] Tobacco use disorder 07/06/2023 Cytomegalovirus infection (HCC) ([facility]) 07/06/2023 Depression, recurrent ([facility]) 06/09/2023 Discoid lupus erythematosus ([facility]) 02/14/2022 Disturbance of skin sensation [...] Chronic laryngopharyngitis COVID-19 vaccine administered x 2 ([employer]) Difficulty walking Fatigue Fibromyalgia, primary GERD (gastroesophageal [...] behalf of: KELVIN Cabrera documented in this encounterSSM DePaul Health CenterTdtaihhmuq66-43-0491 NoteTuscarawas Hospital12-23-2024 History of Present illness Narrative* Deisy Jaime LSW - 05/15/2024 9:09 AM EST Patient's name appears on the [facility] First Time Treatment Report for a non- oncology treatment. No psychosocial assessment is indicated. BILL Rosenberg Goals of Care Advance Directives are not on file. documented in this encounterScci Hospital [facility]ima12-20-2024 History of Present illness Narrative* Luna Emanuel [...] been reviewed prior to dispensing the medication. Water Attendant Assessment Patient confirmed: Yes Med/dose confirmed: Yes Supplies needed: No supplies needed Missed doses: No Estimated days supply on hand: 1 Copay amount: 0 Payment confirmed: Yes Delivery method: FedEx Signature required: Waived on patient request Delivery address: [address] [place], [place] [id number] Delivery date: 05/16/24 Questions or concerns for [...] facility-administered medications on file prior to visit. [facility] RX SPECIALTY CLINICAL ASSESSMENT - [...] longer tolerated. Luna Emanuel documented in this encounterScci Hospital [facility]ima12-20-2024 NoteTuscarawas Hospital12-04-2024 Nurse Note* Radha Schofield MA - 04/26/2024 9:32 AM EST Patient Identification confirmed: yes. Injection given and documented on JUL per provider order. Radha Schofield MA [facility]12-04-2024 Nurse Note* Radha Schofield MA - 04/26/2024 9:32 AM EST Patient Identification confirmed: yes. Injection given and documented on MAR per provider order. Radha Schofield MA documented in this encounterScci Hospital [facility]ima11-22-2024 Telephone encounter Note * Telephone Encounter - Gay Barnett - 04/14/2024 12:11 PM EST Patient coming in for a sibo breath test on Wednesday and has been on keflex for 3 days and needs to be on for ten so she will need to reschedule [facility]-22-[facility]24 Miscellaneous Notes* Telephone Encounter - Gay Barnett - 04/14/2024 12:11 PM EST Patient coming in for a sibo breath test on Wednesday and has been on keflex for 3 days and needs to be on for ten so she will need to reschedule documented in this encounterS[facility]11-19-2024 NoteTuscarawas Hospital11-18-2024 Miscellaneous Notes* Telephone Encounter - Sherrie [...] retail prescription at designated insurance specialty pharmacy. Elpiido Arce, PharmD, BCOP * Telephone Encounter - [...] if Triage was involved? Please advise. Sherrie Cortse documented in this encounterScci Hospital [facility]11-18-2024 Telephone encounter Note * Telephone Encounter - Sherrie Cortes - 04/10/2024 2:12 PM EST Patient requested this appointment be rescheduled for the end of April. She has been scheduled for 05/19, she is all set. Thank you! Sherrie Cortes [facility]11-18-2024 Telephone encounter Note* Telephone Encounter - Shantel Arce RPh - 04/10/2024 2:07 PM EST SUBQ products (eg, 20% [Cuvitru, Hizentra, Xembify]) or IM products (eg, 16% [GamaSTAN]) intravenously. It would depend upon insurance coverage and would be done as a retail prescription at designated insurance specialty pharmacy. Elpidio Arce, PharmD, BCOP [facility] Work Phone: [phone] Telephone encounter Note* Telephone Encounter - Enma [...] appt per pt request Enma Hamm, RN [facility]11-18-2024 Telephone encounter Note* Telephone Encounter - Enma Hamm RN - 04/10/2024 12:54 PM EST Called to discuss with pt. She was researching online and found SCIG a weekly subq injection to give herself that is less dose, and has less side effects. Pharmacy/Mason: please advise Enma Hamm RN [facility]11-18-2024 Telephone encounter Note* Telephone Encounter - Vera Najera MD - 04/10/2024 12:26 PM EST Really sorry - I don't recall the home infusion of IVIG - I think it is safer to give it to her in-house as IV so we can monitor infusion reactions. Sorry if I created a misunderstanding. [facility]11-18-2024 History of Present illness Narrative* Gordo Barfield [...] Tobacco use disorder 07/06/2023 Cytomegalovirus infection (HCC) ([facility]) 07/06/2023 Depression, recurrent (CMS/[facility]) 06/09/2023 Discoid lupus erythematosus (CMS/[facility]) 02/14/2022 Disturbance of skin sensation 07/06/2023 Elevated sed rate 03/05/2021 High total serum IgM 03/05/2021 Enthesopathy of hip region 07/06/2023 Essential hypertension (CMS/HCC) 06/09/2023 Excessive and frequent menstruation with irregular cycle 09/24/2022 Family history of Crohn's disease 03/05/2021 Hair loss 03/05/2021 Hyperlipidemia ([facility]/HCC) 05/31/2014 [facility] current use of systemic steroids 02/04/2023 Long-term use of high-risk medication 06/15/2022 Long-term use of Plaquenil 03/05/2021 LPRD (laryngopharyngeal reflux disease) 07/06/2023 Megaloblastic anemia due to vitamin B12 deficiency 03/04/2022 Myalgia 07/06/2023 Obesity, Class III, BMI 40-49.9 (morbid obesity) ([facility]) 09/07/2022 Obstructive sleep apnea syndrome 05/20/2022 Oral lesion 07/06/2023 Pain, hip 07/06/2023 Rash and nonspecific skin eruption 03/05/2021 Steroid-induced osteoporosis ([facility]/HCC) 02/04/2023 Somnolence, daytime 05/20/2022 Secondary osteoarthritis of multiple sites 03/05/2021 Raynaud's disease without gangrene 02/04/2023 Swelling of lymph nodes 03/05/2021 Vitamin D deficiency 03/06/2021 Vitamin B12 deficiency 05/31/2014 Pure hypercholesterolemia, unspecified ([facility]/HCC) 08/10/2023 Hoarse 08/10/2023 Thyroid nodule ([facility]) 08/10/2023 Shortness of breath 07/13/2023 Paroxysmal supraventricular tachycardia ([facility]) 07/13/2023 PAC (premature atrial contraction) [...] of removal of cyst 2012 HTN (hypertension) ([facility]) Hx of abnormal cervical Pap [...] AREA NEEDED ergocalciferol (Vitamin D2) 1.25 MG (22408 UT) capsule Take 50,000 Units by mouth [...] referred from the [facility] documented in this encounterSSM DePaul Health [id number] Telephone encounter Note* Telephone Encounter - Sherrie [...] Triage was involved? Please advise. Sherrie Cortes [facility]11-15-2024 NoteTuscarawas Hospital11-15-2024 History of Present illness Narrative* Deisy Jaime LSW - 04/07/2024 9:30 AM EST Patient's name appears on the [facility] First Time Treatment List for a non- oncology treatment. No psychosocial assessment is indicated. BILL Rosenberg Goals of Care Advance Directives are not on file SIGNATURE: JUSTICE Rosenberg PATIENT NAME: Ariadna Haley DATE: April 07, 2024 TIME: 9:31 AM PAGER/CONTACT #: documented in this encounterScci Hospital [facility]ima11-14-2024 Evaluation + Plan note* Assessment & Plan Note - Hadyen Arciniega MD - 04/06/2024 10:10 AM EST Associated Problem(s): Raynaud's disease without gangrene We will get lower extremity PVR with cold immersion test. I counseled her on the diagnosis and identifying and avoiding provoking factors. I also counseled her that managing her SLE and autoimmune connective tissue disorders is balderrama for managing her Raynaud's. All her questions were answered. [facility]11-14-2024 Miscellaneous Notes* Assessment & Plan [...] her questions were answered. documented in this encounterOhio State University [facility] Center11-14-2024 History of Present illness Narrative* [...] Assessment and Plan: Problem List Rheumatoid arthritis ([facility]-HCC) Relevant Medications ibuprofen (ADVIL,MOTRIN) 200 mg tablet predniSONE (STERAPRED DS) 10 mg tablet pack Systemic lupus erythematosus ([facility]) - Primary Relevant Medications ibuprofen [...] orders for this visit: Systemic lupus erythematosus ([facility]) - Vas art doppler lwr bilat mult lev/PVR; Future Cold extremities - [facility] - [place], [place] - Vas art doppler lwr bilat mult lev/PVR; Future Pain of lower extremity, unspecified laterality - [facility] - [place], [place] - Vas art doppler lwr bilat mult lev/PVR; Future Rheumatoid arthritis, involving unspecified site, unspecified whether rheumatoid factor present ([facility]) Current smoker Raynaud's disease without gangrene Hayden [...] you for your understanding. documented in this encounterGlenbeigh HospitalClicko Select Specialty [id number] Instructions* Patient Instructions* Hayden Arciniega MD - 04/06/2024 9:40 AM EST Are You Ready To Kick The Habit? Free Tobacco Cessation Resources [facility] Services [facility] provide all employees with free tobacco cessation services that include: Counseling to understand nicotine addiction Education about medications that can help you successfully quit Assistance with developing a plan to quit Call to set up an individual appointment or find out when group classes will be held: [facility]: [phone] [facility]: [phone] [facility]: [phone] [facility]: [phone] Quit Smoking Action Plan and Resources [facility] offers an eight-week, online smoking cessation plan to all [facility] employees, regardless of whether [employer] is your medical insurance provider. Go to www.[email or web address]/employeewellness and click the Health Risk Assessment and Resources link to get started. In the [employer] menu, click Action Plans instead of Health Risk Assessment to access the Quit Smoking Action Plan. Additional smoking cessation resources are also available to all [facility] employees on the [employer] web page at www.BoxCat/quitsmoking. [employer] Tobacco Cessation Program If [employer] is your medical insurance provider, there are more free resources available to you, including: No copays or deductibles on local tobacco cessation counseling services to help you quit Prescription assistance for tobacco cessation medications to help you quit For details about the tobacco cessation program available to [employer] members, go to www.BeavEx.Fan TV (Search: Tobacco Cessation Program). [place] Tobacco Quit Line 3-009-HMKK-NOW ( ) is a toll-free, telephonic service that helps [place] residents quit smoking and using tobacco. It is staffed by experts who tailor a quit plan for you and provide you with advice. [place] Tobacco Quit Line 5-120-PYYU-NOW ( ) is a toll-free, telephonic service that helps [place] residents quit smoking and using tobacco. It is staffed by experts who tailor a quit plan for you and provide you with advice. Two weeks of nicotine replacement therapy may be provided at no charge, if needed. Additional Resources These national organizations also offer free information and resources to help you quit tobacco: [place] [employer]--www.cancer.org/healthy/stayawayfromtobacco [place] [employer]--www.heart.org (Search: Quit Smoking) Centers for Disease Control and Prevention--www.cdc.gov/tobacco [place] [employer]--www.lungusa.org documented in this encounterOhio State University [facility]11-11-2024 Telephone encounter Note* Telephone Encounter - Marky Nichols DO - 04/03/2024 9:36 AM EST Changed terbinafine to itraconazole at pt request. [facility] Health [id number] Miscellaneous Notes* Telephone Encounter - Marky Nichols DO - 04/03/2024 9:36 AM EST Changed terbinafine to itraconazole at pt request. documented in this encounterSSM DePaul Health CenterWpandtaqgx84-70-2186 Telephone encounter Note* Telephone Encounter - Lynne Ni MD - 04/02/2024 2:36 PM EST Please Call patient if MyChart note not read to review results/released to My Chart if tests completed at [facility]: Mildly high normal wbc, glucose, one [...] above. Please process accordingly. Lynne Ni MD [facility]11-10-2024 Miscellaneous Notes* Telephone Encounter - Lynne Ni [...] accordingly. Lynne Ni MD documented in this encounterScci Hospital [facility]ima11-10-2024 History of Present illness Narrative* Marky Nichols [...] with her immunosuppressive therapy. documented in this encounterSSM DePaul Health [id number] Instructions* Patient Instructions* Abhyankar, Vera, MD - 04/01/2024 4:28 PM EST Obtain body fluid culture from [facility]. B12 shot today and every 4 weeks. Continue Folic acid. Frequent infections plan IVIG for hypogammaglobulinemia Start when approved. RTC 3 months repeat labs same day. IVIG same day. documented in this encounterScci Hospital [facility]ima11-08-2024 NoteTuscarawas Hospital11-08-2024 History of Present illness Narrative* Ashly Castillo - 03/31/2024 12:29 PM EST CMN RECEIVED BY [email or web address] VIA FAX, COMPLETED, AND PLACED IN PROVIDER MAILBOX FOR SIGNATURE Ashly Castillo [employer] II 03/31/2024 [employer] COMPANY SENDING CMN: JOSH SIGNED AND DATED CMN, FAXED TO DME & CONFIRMATION PAGE RECEIVED: 04/11/2024 documented in this encounterScci Hospital [facility]ima11-07-2024 Telephone encounter Note * Telephone Encounter - Mae Elaine - 03/30/2024 8:01 AM EST Pt is scheduled and instructions were sent thru my chart. [facility]11-07-2024 Miscellaneous Notes* Telephone Encounter - Mae Elaine [...] note were not included. documented in this encounterScci Hospital [facility]ima11-06-2024 Telephone encounter Note * Telephone Encounter - Mae Elaine - 03/29/2024 9:02 AM EST Im for pt- saved time on 04/18 7:45 Also sent mychart msg. dm [facility]11-04-2024 NoteTuscarawas Hospital11-04-2024 History of Present illness Narrative* Vera Najera MD - 03/27/2024 3:03 PM EST Images from the original note were not included. NAME: TeraAriadna CLINIC NO.: [id number] DATE OF SERVICE: March 27, 2024 (Marquis) Some elements in this clinic note that are critical to medical decision making have been carefully reviewed and included from a prior clinic note dated: December 27, 2023 (Liz) Referring Provider: Dr. Manuel Ferris Additional Clinicians involved in Ariadna Haley's care: VIRTUAL VISIT PROGRESS NOTE This is a virtual visit using OnApper Video Call. It required patient- provider interaction for the medical decision making as documented below. I have communicated my name and active licensure. The patient's identity and physical location wereverified at the time of this visit. Either the patient or their legal medical device sales representative has been informed of the [...] noted. PLAN: Obtain body fluid culture from [facility]. B12 shot today and every [...] lower lip done 2 days ago at [facility] - awaiting results. B12 helps [...] injections. 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 She has been told they [...] [facility]ology [facility] On[facility] Provided at: [place], [place] CC: Manuel Ferris MD [id number] [id number] documented in this encounterScci Hospital Lima10-31-2024 History of Present illness Narrative* KELVIN Cabrera [...] Ambulatory Problems Diagnosis Date Noted Autoimmune disease ([facility]) 06/01/2023 Fibromyalgia 06/01/2023 Autonomic dysfunction [...] Tobacco use disorder 07/06/2023 Cytomegalovirus infection (HCC) ([facility]) 07/06/2023 Depression, recurrent ([facility]) 06/09/2023 Discoid lupus erythematosus ([facility]) 02/14/2022 Disturbance of skin sensation 07/06/2023 Elevated sed rate 03/05/2021 High total serum IgM 03/05/2021 Enthesopathy of hip region 07/06/2023 Essential hypertension ([facility]) 06/09/2023 Excessive and frequent menstruation with irregular cycle 09/24/2022 Family history of Crohn's disease 03/05/2021 Hair loss 03/05/2021 Hyperlipidemia ([facility]) 05/31/2014 [facility] current use of systemic steroids 02/04/2023 Long-term use of high-risk medication 06/15/2022 Long-term use of Plaquenil 03/05/2021 LPRD (laryngopharyngeal reflux disease) 07/06/2023 Megaloblastic anemia due to vitamin B12 deficiency 03/04/2022 Myalgia 07/06/2023 Obesity, Class III, BMI 40-49.9 (morbid obesity) ([facility]) 09/07/2022 Obstructive sleep apnea syndrome 05/20/2022 Oral lesion 07/06/2023 Pain, hip 07/06/2023 Rash and nonspecific skin eruption 03/05/2021 Steroid-induced osteoporosis ([facility]) 02/04/2023 Somnolence, daytime 05/20/2022 Secondary osteoarthritis of multiple sites 03/05/2021 Raynaud's disease without gangrene 02/04/2023 Swelling of lymph nodes 03/05/2021 Vitamin D deficiency 03/06/2021 Vitamin B12 deficiency 05/31/2014 Pure hypercholesterolemia, unspecified ([facility]) 08/10/2023 Hoarse 08/10/2023 Thyroid nodule ([facility]) 08/10/2023 Shortness of breath 07/13/2023 Paroxysmal supraventricular tachycardia ([facility]) 07/13/2023 PAC (premature atrial contraction) [...] of removal of cyst 2012 HTN (hypertension) ([facility]) Hx of abnormal cervical Pap smear Insulin resistance Laryngopharyngeal reflux disease Lupus Numbness Oral thrush Prediabetes Sleep apnea Weakness of limb HISTORY PAST MEDICAL HISTORY SOCIAL HISTORY Past Medical History: Diagnosis Date Anxiety Cervical lymphadenopathy Chronic laryngopharyngitis COVID-19 vaccine administered x 2 (PollVaultr) Difficulty walking Fatigue Fibromyalgia, primary GERD (gastroesophageal reflux disease) History of removal of cyst 2012 tailbone x2 HTN (hypertension) ([facility]) Hx of abnormal cervical Pap smear Hyperlipidemia ([facility]) Insulin resistance Laryngopharyngeal reflux disease [...] behalf of: KELVIN Cabrera documented in this encounterSSM DePaul Health [id number] Nurse Note* Stacy Gutiérrez MA - 03/23/2024 10:16 AM EDT Patient Identification confirmed: yes. Injection given and documented on MAR per provider order. Stacy Gutiérrez MA [facility]10-31-20[facility] Nurse Note* Stacy Gutiérrez MA - 03/23/2024 10:16 AM EDT Patient Identification confirmed: yes. Injection given and documented on MAR per provider order. Stacy Gutiérrez MA documented in this encounterScci Hospital [facility]ima10-28-2024 Telephone encounter Note * Telephone Encounter - Mae Elaine - 03/20/2024 12:37 PM EDT Images from the original note were not included. 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 Labs sent to [place]/completed in 06/2021 (no results faxed to office, but patient pulled up results on her phone). Chronic current pain in neck, flank area, mid back, knees, legs, arms, all over pain. Better with lyrica 75mg 3times a day. Reports pain 4-8/10. Couple hrs AM stiffness. COVID vaccine PollVaultr 09/28/20, 10/19/20, 05/26/21. Feels safe at home. [...] pain: yes H/o precedent/frequent infection(s): as above Enthesopathy/Morriston's/heel/plantar tenderness: hands random painful/tingling Skin thickening, psoriasis, [...] COVID-19 original vaccine, age 12+ yr, monovalent (Carticipate - PURPLE TOP) 09/28/2020 10/19/2020 05/26/2021 COVID-19 vaccine, age 12+ yr (Carticipate COMIRNATY) 02/23/2023 COVID-19 vaccine, age 12+ yr, bivalent (Carticipate) 02/08/2022 Pneumovax no Flu shot no Tetanus [...] (33);NL cbc, cmp, negative hla b27; Outside [place] 06/2021 low vitamin D 16, vitamin b12-307;high [...] Z79.899 Long-term use of high-risk medication Z79.52 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 No Do you need an data entry assistant? No [facility] MYCHART ZOOM MESSAGE Question 03/16/2024 7:44 PM [...] Percentile (range: 0 - 100) 4 5 [facility] SLAQ QUESTIONNAIRE Question 03/16/2024 7:51 PM EDT [...] of Right Forearm or Lower Left Leg. [facility] PROMIS 10 ADULT SHORT FORM V1.0 GLOBAL [...] my health Strongly Agree documented in this encounterScci Hospital [facility]ima10-26-2024 Instructions* Patient Instructions* Lynne Ni MD - [...] (200mg) daily with a meal Please see job coach every 6-12months while on Hydroxychloroquine. azathioprine daily [...] your usual activities immediately. documented in this encounterScci Hospital Lima10-25-2024 Telephone encounter Note * Telephone Encounter - [...] above. Please process accordingly. Lynne Ni MD [facility]10-25-2024 Miscellaneous Notes* Telephone Encounter - Lynne Ni [...] VIDEO SPEC EST 03/18/2024 9:00 AM R[facility]U [facility] REJ Last Ophthalmology Check for Plaquenil [...] Assoc. diagnoses: Pseudomonas infection documented in this encounterScci Hospital [facility]ima10-25-2024 Telephone encounter Note * Telephone Encounter - [...] VIDEO SPEC EST 03/18/2024 9:00 AM RHEU [facility] REJ Last Ophthalmology Check for Plaquenil [...] Alhaji Victoria DO Assoc. 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 Exam conducted with a block handler present. Vitals: Estimated body mass index is [...] Disease with Dr. Baer and Specialist [facility]. Patient voiced that Dr. Baer recommended surgery, but patient feels that maybe excessive. Specialist at [facility] suggested monitoring. Patient has had mammogram. Patient does not put anything on her breast.Ruled out Mondor's Breast concerns. Discussed Highland Oil at night and Vitamin E lotion. Patient voiced that her breast feel brambila and heavier. Discussed growth of breast and proper support. Breastare not hot nor warm to the touch. Patient to obtain bilateral breast ultrasound. Patient to followup with routine annual appointment and as needed. Documented by Alicia Christine LPN on behalf of: Luan Valdivia DO documented in this encounterSSM DePaul Health [id number] [facility]BE[facility] Note Chief Complaint: New patient here to establish care. Ref from Gay De La Torre CNP for hypertension. Former [facility] cardiology patient. Had echo a few weeks ago at [facility]. Says her BP is very [...] past several months. She has seen 2-3 scalloper in the past. She has undergone a [...] on any stimulants including caffeinated beverages, alcohol, [id number] Sudafed etc. If her symptoms of palpitations persist, particular if she has lightheadedness or dizziness, head upright tilt table test may be reasonable to evaluate for possible dysautonomia's I discussed the side effects and risks of long-term steroid therapy and recommended she discuss with her pond worker weaning off soon as possible Given her morbid obesity, her current symptoms and comorbidities are likely related to excessive weight: I encouraged physical activity, attempts to lose weigh (more content not included)...[facility] 03-07-2024 History of Present illness Narrative* Lee Friedman - 03/07/2024 8:35 AM EDT CMN RECEIVED BY [email or web address] VIA FAX, COMPLETED, AND PLACED IN PROVIDER MAILBOX FOR SIGNATURE Lee Friedman Coordinator III 03.07.2024 [employer] COMPANY SENDING CMN: Josh SIGNED AND DATED CMN, FAXED TO DME & CONFIRMATION PAGE RECEIVED: 03.07.2024 documented in this encounterScci Hospital [facility]ima10-01-2024 Telephone encounter Note * Telephone Encounter - [...] terrified to drive that far to [place].' Further reviewed the reasoning behind the visit needing to be in-person and stated that I would have our racing driver reach out if she is willingto accept an in-person appt. PT requested that I review with our clinical team if this can be a VV before she schedules. I let her know I will do so and be in touch. She had no further questions at this time. Luda Vargas Genetic Counseling Transmitter Tester Additional: see Khoa for documentation of scheduling and cancellation with genetics in 2021 [facility]10-01-2024 Miscellaneous Notes* Telephone Encounter - Luda Vargas [...] terrified to drive that far to [place].' Further reviewed the reasoning behind the visit needing to be in-person and stated that I would have our racing driver reach out if she is willingto accept an in-person appt. PT requested that I review with our clinical team if this can be a VV before she schedules. I let her know I will do so and be in touch. She had no further questions at this time. Luda Vargas Genetic Counseling Transmitter Tester Additional: see Khoa for documentation of scheduling and cancellation with genetics in 2021 documented in this encounterS[facility] Nurse Note* Kenzie Shannon MA - 02/21/2024 11:13 AM EDT Patient Identification confirmed: yes. Injection given and documented on MAR per provider order. Kenzie Shannon MA [facility]09-30-2024 Nurse Note* Kenzie Shannon MA - 02/21/2024 11:13 AM EDT Patient Identification confirmed: yes. Injection given and documented on MAR per provider order. Kenzie Shannon MA documented in this encounterS[facility]-2024 Telephone encounter Note * Telephone Encounter - Sherrie Jimenes - 02/18/2024 1:26 PM EDT Patient is calling the [place] office requesting Dr. Ni to place a referral to genetics. Please advise. [facility]-27-2024 Miscellaneous Notes* Telephone Encounter - Sherrie Jimenes - 02/18/2024 1:26 PM EDT Patient is calling the [place] office requesting Dr. Ni to place a referral to genetics. Please advise. documented in this encounterS[facility]09-24-2024 Telephone encounter Note * Telephone Encounter - Hansa Javed LPN - 02/15/2024 9:49 AM EDT PAP ORDER FAXED TO [facility] WITH DEMOGRAPHICS, OFFICE NOTES WITH CONFIRMATON NOTED. [facility]09-24-2024 Miscellaneous Notes* Telephone Encounter - Hansa Javed LPN - 02/15/2024 9:49 AM EDT [facility], OFFICE NOTES WITH CONFIRMATON NOTED. documented in this encounterScci Hospital [facility]09-23-2024 History of Present illness Narrative* Elton (Brine Plant Operator)Luda - 02/14/2024 2:32 PM EDT [facility] [...] been reviewed prior to dispensing the medication. Water Attendant Assessment Patient confirmed: Yes Med/dose confirmed: Yes Missed doses: No Estimated days supply on hand: 1 Next cycle/dose due: 02/17/24 Copay amount: 0 Payment confirmed: Yes Delivery method: FedEx Signature required: Waived on patient request Delivery address: [address] [place], [place] Delivery date: 02/17/24 Questions or concerns [...] facility-administered medications on file prior to visit. [facility] SPECIALTY CLINICAL ASSESSMENT - [...] efficacy and/or no longer tolerated. Luda Conde [facility] [phone] documented in this encounterScci Hospital [facility]ima09-23-2024 History of Present illness Narrative* Elton EpsteinSnapteeLuda Benz - 02/14/2024 2:26 PM EDT Benefits investigation was conducted, indicating that a re-authorization is required for Benlysta. PA was initiated and pending review. Plan Name: Keesha LionMedlucinda Balderrama: [id number] Luda Conde CPhT [facility] [phone] documented in this encounterScci Hospital [facility]09-23-2024 Instructions* Patient Instructions* Lexus Heck APRN.CNP - [...] treatment, there are resources available at the [facility] such as a nutrition consultation or referral to weight management programs at our [facility]. Please let us know if we can [...] and out of pocket expenses. DME: [facility] [phone] - Remember to clean your mask and equipment regularly, as directed. - Avoid use of ozone flue lining dipper, SoClean devices, or UV cleaning devices - [...] the central scheduling system for the [facility] at [phone]. [facility] now offers direct scheduling for patients to schedule appointments. Virtual visits are also available. Call the office at [phone], option #5 for questions. documented in this encounterScci Hospital [facility]ima09-23-2024 History of Present illness Narrative* Lexus Heck APRN.CNP - 02/14/2024 8:00 AM EDT Images from the original note were not included. [facility] Virtual Visit Follow up/ Established patient visit Date of last visit : 07/27/2022 I have communicated my name and active licensure. The patient's identity and physical location wereverified at the time of this visit. Either the patient or their legal medical device sales representative has been informed of the [...] Return Visit in 6 months. Lexus Heck APRN.SINGLE POINTED OPERATOR Interval history : Here for follow up for sleep apnea management. SLEEP APNEA Sleep apnea type : JOSE RAFAEL Most Recent Apnea-Hypopnea Index (AHI): 5.3 (HSAT scored 4 %) Treatment : PAP therapy DME: Josh [facility] fax: [phone] DME ph: [phone] PAP History: Current PAP settin-15 cm H2O. [...] sorted in reverse-chronological order 04/12/2022 07/23/2022 [place] Sleepiness Scale Score 4 (No clinically significant [...] months. Lexus Heck APRN.TRUE documented in this encounterS[facility] Hospital [facility]09-18-2024 History of Present illness Narrative* Zita Cuellar NP - 02/09/2024 8:00 AM EDT Images from the original note were not included. CHIEF COMPLAINT REASON FOR VISIT : leg pain HPI: Ariadna Haley is a 43 y.o. female who presents for [facility]. She is at home. She consents [...] Chronic laryngopharyngitis COVID-19 vaccine administered x 2 (PollVaultr) Difficulty walking Fatigue Fibromyalgia, primary GERD (gastroesophageal [...] Depression: Not at risk (12/27/2023) Received from [facility] PHQ-2 PHQ-2 score: 1 REVIEW OF SYMPTOMS: [...] patient, and coordinating care. documented in this encounterSSM DePaul Health [id number] NoteHNO ID: [id number] Author: ALHAJI VICTORIA, DO Service: ? Author Type: Physician Type: Progress Notes Filed: 01/27/2024 16:54 Note Text: VIRTUAL VISIT PROGRESS NOTE This is a virtual visit using Creat[employer] Video Visit. It required patient-provider interaction for the medical decision making as documented below. I have communicated my name and active licensure. The patient's identity and physical location were verified at the time of this visit. Either the patient or their legal medical device sales representative has been informed of the [...] of green drainage. She saw her OB/ digital forensics examiner. This was thought to be secondary to [...] SOB/WHEEZING, and NO DYSPHAG (more content not included)...[facility]09-05-2024 History of Present illness Narrative* Alhaji Victoria, - 01/27/2024 10:10 AM EDT Images from the original note were not included. VIRTUAL VISIT PROGRESS NOTE This is a virtual visit using [email or web address] Zoom Video Visit. It required patient- provider interaction for the medical decision making as documented below. I have communicated my name and active licensure. The patient's identity and physical location wereverified at the time of this visit. Either the patient or their legal medical device sales representative has been informed of the [...] of green drainage. She saw her OB/ digital forensics examiner. This was thought to be secondary to [...] thrush Alhaji Victoria DO documented in this encounterScci Hospital [facility]09-03-2024 Nurse Note* Margret Cuenca MA - 01/25/2024 11:30 AM EDT Patient Identification confirmed: yes. Injection given and documented on JUL per provider order. Margret Cuenca MA [facility]09-03-2024 Nurse Note* Margret Cuenca MA - 01/25/2024 11:30 AM EDT Patient Identification confirmed: yes. Injection given and documented on JUL per provider order. Margret Cuenca MA documented in this encounterScci Hospital [facility]08-27-2024 History of Present illness Narrative* Arianne Mckinley [...] outcomes. Aidee Quintanilla PharmD Clinical Pharmacist, Biologics [facility] ; Pool: P [facility] Pool #: [id number] Water Attendant Assessment Patient confirmed: Yes Med/dose confirmed: Yes Supplies needed: No supplies needed Missed doses: No Estimated days supply on hand: (At least 1 dose) Next cycle/dose due: 01/20/24 Copay amount: 0 Payment confirmed: Yes Delivery method: FedEx Signature required: Waived on patient request Delivery address: [address] [place] [address] Delivery date: 01/21/24 Questions or concerns for [...] facility-administered medications on file prior to visit. [facility] RX SPECIALTY CLINICAL ASSESSMENT - [...] no longer tolerated. Arianne Mckinley CPhT, Inflammatory/Allergy [facility] [phone] documented in this encounterScci Hospital [facility]ima08-21-2024 Telephone encounter Note * Telephone Encounter - Krista Braswell MA - 01/12/2024 10:45 AM EDT Pt has been notified via Emergent One. [facility]08-21-2024 Miscellaneous Notes* Telephone Encounter - Krista Fonseca MA - 01/12/2024 10:45 AM EDT Pt has been notified via Emergent One. * Telephone Encounter - Lynne Ni MD [...] months 06/02/24 06/03/23 11/24/23 Auth. provider: Vera Najear MD Assoc. diagnoses: [...] Assoc. diagnoses: Screening-pulmonary TB documented in this encounterScci Hospital [facility]ima08-21-2024 Telephone encounter Note * Telephone Encounter - [...] above. Please process accordingly. Lynne Ni MD [facility]08-21-2024 Telephone encounter Note* Telephone Encounter - Beatriz [...] Lynne Ni MD Assoc. diagnoses: Screening-pulmonary TB [place] [address]-08-2024 Telephone encounter Note* Telephone Encounter - Krista Braswell MA - 12/30/2023 1:34 PM EDT Spoke to pt aware of results and recommendations. [facility]-08-[facility]24 Miscellaneous Notes* Telephone Encounter - Krista Fonseca [...] vitamin b12 every month documented in this encounterScci Hospital [facility]08-08-2024 Telephone encounter Note * Telephone Encounter - [...] likely reactive, continue vitamin b12 every month [facility]08-05-2024 Telephone encounter Note* Telephone Encounter - Enma Hamm RN - 12/27/2023 12:49 PM EDT Pt informed of MM message and denies any questions, needs or concerns at this time. Appointments verified. Enma Hamm RN [facility]-05-2024 Miscellaneous Notes* Telephone Encounter - Enma Hamm RN - 12/27/2023 12:49 PM EDT Pt informed of MM message and denies any questions, needs or concerns at this time. Appointments verified. Enma Hamm RN * Telephone Encounter - Neda Hill PA-C - 12/27/2023 12:44 PM EDT Please call and inform the patient that I reviewed her [facility] records and there is no evidence of a blood clot and she does not need to be on blood thinners. Neda Hill PA-C documented in this encounterScci Hospital [facility]08-05-2024 Telephone encounter Note * Telephone Encounter - Neda Hill PA-C - 12/27/2023 12:44 PM EDT Please call and inform the patient that I reviewed her [facility] records and there is no evidence of a blood clot and she does not need to be on blood thinners. Neda Hill PA-C [facility] Work Phone: [phone] Nurse Note* Margret Cuenca MA - 12/27/2023 11:44 AM EDT Patient Identification confirmed: yes. Injection given and documented on MAR per provider order. Margret Cuenca MA [facility]08-05-2024 Nurse Note* Margret Cuenca MA - 12/27/2023 11:44 AM EDT Patient Identification confirmed: yes. Injection given and documented on MAR per provider order. Margret Cuenca MA documented in this encounterScci Hospital [facility]08-05-2024 History of Present illness Narrative* Neda Hill PA-C - 12/27/2023 11:30 AM EDT Images from the original note were not included. NAME: Ariadna Haley CLINIC NO.: [id number] DATE OF SERVICE: December 27, 2023 (Liz) [...] labs 1 week before. Request records from [facility] from PE/elevated d-dimer Frequent infections [...] lower lip done 2 days ago at [facility] - awaiting results. B12 helps [...] injections. 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 She has been told they [...] which included preparing to see the patient, fulp-ia-apev patient care, completing clinical documentation, obtaining and/or reviewing separately obtained history, performing a medically appropriate examination, counseling and educating the pat ient/family/caregiver, ordering medications, tests, or procedures, communicating with other HCPs (not separately reported), independently interpreting results (not separately reported), communicatingresults to the patient/family/caregiver, and care coordination (not separately reported). Neda Hill PA-C Hematology and Oncology Services Provided at: [place], [place] CC: Manuel Ferris MD [address] [facility] [address] documented in this encounterScci Hospital [facility]ima07-22-2024 History of Present illness Narrative* Elton (Brine Plant Operator)Luda - 12/13/2023 11:44 AM EDT [facility] [...] laboratory parameters, disease state markers and outcomes. 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 [facility] RX SPECIALTY CLINICAL ASSESSMENT - INFLAMMATORY CONDITIONS V6: Assessment to use: Refill [facility] VACCINE INFORMATION [facility] TREATMENT PLAN INFORMATION Luda Conde CPhT [facility] [phone] documented in this encounterScci Hospital [facility]ima07-08-2024 Nurse Note* Stacy Gutiérrez MA - 11/29/2023 1:47 PM EDT Patient Identification confirmed: yes. Injection given and documented on JUL per provider order. Stacy Gutiérrez MA [facility]07-08-2024 Nurse Note* Stacy Gutiérrez MA - 11/29/2023 1:47 PM EDT Patient Identification confirmed: yes. Injection given and documented on JUL per provider order. Stacy Gutiérrez MA documented in this encounterScci Hospital [facility]07-05-2024 Telephone encounter Note * Telephone Encounter - Katherin Schneider RN - 11/26/2023 11:34 AM EDT Please sign pended script Maryam Schneider RN [facility]07-05-2024 Miscellaneous Notes* Telephone Encounter - Katherin Schneider RN - 11/26/2023 11:34 AM EDT Please sign pended script Maryam Schneider RN documented in this encounterScci Hospital [facility]ima06-24-2024 History of Present illness Narrative* Aidee Quintanilla, [facility] - 11/15/2023 1:00 PM EDT [facility] [...] laboratory parameters, disease state markers and outcomes. Water Attendant Assessment Patient confirmed: Yes Med/dose confirmed: Yes Missed doses: No Estimated days supply on hand: 1 Next cycle/dose due: 11/18/23 Copay amount: 0 Payment confirmed: Yes Delivery method: FedEx Signature required: Waived on patient request Delivery address: [address] [place] [address] [address]. [place], [place] Delivery date: 11/17/23 Questions or concerns [...] facility-administered medications on file prior to visit. [facility] Visit Assessment - Inflammatory Conditions: [...] Yes Aidee Quintanilla PharmD Clinical Pharmacist, Biologics [facility] ; Pool: P [facility] Pool #: [id number] documented in this encounterScci Hospital [facility]06-20-2024 Telephone encounter Note * Telephone Encounter - [...] above. Please process accordingly. Lynne Ni MD [facility]06-20-2024 Miscellaneous Notes* Telephone Encounter - Lynne Ni [...] High total serum IgM documented in this encounterScci Hospital [facility]ima06-20-2024 Telephone encounter Note * Telephone Encounter - [...] vitamin B12 deficiency, High total serum IgM [facility]06-06-2024 Telephone encounter Note* Telephone Encounter - Karina Morales RN - 10/28/2023 1:33 PM EDT Pt read Emergent One message. [facility]-06-20[facility] Miscellaneous Notes* Telephone Encounter - Karina Morales RN - 10/28/2023 1:33 PM EDT Pt read Emergent One message. * Telephone Encounter - Lynne Ni [...] soon! Warm regards, :) documented in this encounterScci Hospital [facility]ima06-06-2024 Telephone encounter Note * Telephone Encounter - [...] you feel better soon! Dr.Tsai Harshal :) [facility]06-05-20[facility] Nurse Note* Margret Cuenca MA - 10/27/2023 2:43 PM EDT Patient Identification confirmed: yes. Injection given and documented on JUL per provider order. Margret Cuenca MA [facility]06-05-2024 Nurse Note* Margret Cuenca MA - 10/27/2023 2:43 PM EDT Patient Identification confirmed: yes. Injection given and documented on JUL per provider order. Margret Cuenca MA documented in this encounterScci Hospital [facility]ima05-14-2024 History of Present illness Narrative* Lynne Ni [...] Either the patient or their legal medical device sales representative has been informed of the risks and benefits of -- and alternatives to -- treatment through a remote evaluation andconsents to proceed with the evaluation remotely. It required patient-provider interaction for the medical decision making as documented below. 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 Labs sent to [place]/completed in 06/2021 (no results faxed to office, [...] pain: yes H/o precedent/frequent infection(s): as above Enthesopathy/Morriston's/heel/plantar tenderness: hands random painful/tingling Skin thickening, psoriasis, [...] COVID-19 original vaccine, age 12+ yr, monovalent (Carticipate - PURPLE TOP) 09/28/2020 10/19/2020 05/26/2021 COVID-19 vaccine, age 12+ yr, 2022- season (Carticipate) 02/23/2023 COVID-19 vaccine, age 12+ yr, bivalent (Carticipate) 02/08/2022 Pneumovax no Flu shot no Tetanus [...] (33);NL cbc, cmp, negative hla b27; Outside [place] 06/2021 low vitamin D 16, vitamin b12-307;high [...] measures, may consider osteoporosis treatment if on 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 Start azathioprine [...] video & audio (virtual) or phone or oodh-go-umlq patient care, completing clinical documentation, obtaining and/or [...] Workers' Compensation? No Do you need an data entry assistant? No [facility] MYCHART ZOOM MESSAGE Question 2023 11:04 PM [...] SLAQ Score (range: 0 - 47) 15 [facility] PROVIDER UNDERSTANDING CURRENT HEALTH RHEUMATOLOGY Question 2023 [...] 3 (WITHIN +/- 5) documented in this encounterScci Hospital [facility]ima05-09-2024 Nurse Note* Renea Schneider MA - 09/30/2023 10:53 AM EDT Patient Identification confirmed: yes. Injection given and documented on JUL per provider order. Renea Schneider MA [facility]05-01-2024 Evaluation note* Author Ket[facility] Mccall [facility] Medical CenterAuthoredMay 2023 [id number] female referred to the gastroenterology clinic for [...] to pantoprazole and monitor symptoms [facility] Work Phone: 1(526) 486-672904-18-2024 Instructions* Patient Instructions* Vera Najera MD - 09/09/2023 4:47 PM EDT Follow up in 13 Weeks - labs 1 week before. B12 shot every 4 weeks. Continue Folic acid. documented in this encounterScci Hospital [facility]ima04-18-2024 History of Present illness Narrative* Vera Najera MD - 09/09/2023 4:30 PM EDT NAME: Ariadna Haley [facility] NO.: [id number] DATE OF SERVICE: September 09, 2023 ([place]) Some elements in this clinic note that are critical to medical decision making have been carefully reviewed and included from a prior clinic note dated: June 10, 2023 (Marquis) Referring Provider: Dr. Manuel Ferris Additional Clinicians involved in Ariadna Haley's care: VIRTUAL VISIT PROGRESS NOTE This is a virtual visit using [employer]Apper Video Call. It required patient- provider interaction for the medical decision making as documented below. I have communicated my name and active licensure. The patient's identity and physical location wereverified at the time of this visit. Either the patient or their legal medical device sales representative has been informed of the [...] lower lip done 2 days ago at [facility] - awaiting results. B12 helps [...] injections. 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 She has been told they [...] CPE Hematology and Oncology Services Provided at: [place], [place] CC: Manuel Ferris MD [address] [facility] [address] documented in this encounterScci Hospital [facility]ima04-15-2024 Miscellaneous Notes* Telephone Encounter - Maynor Bryson MA - 09/06/2023 7:21 AM EDT patient has viewed the Emergent One message per [employer]. * Telephone Encounter - Lynne Ni MD - 09/04/2023 6:30 PM EDT Please Call patient if NinthDecimalhart note not read to review results/released to [...] accordingly. Lynne Ni MD documented in this [facility]04-09-2024 Nurse Note* Margret Cuenca MA - 08/31/2023 10:35 AM EDT Patient Identification confirmed: yes. Injection given and documented on MAR per provider order. Margret Cuenca MA documented in this [facility]04-01-2024 Nurse Note* Renea Schneider MA - 09/30/2023 10:53 AM EDT Patient Identification confirmed: yes. Injection given and documented on MAR per provider order. Renea Schneider MA documented in this [facility]03-14-2024 Nurse Note* Margret Cuenca - 08/05/2023 11:16 AM EDT Patient Identification confirmed: yes. Injection given and documented on JUL per provider order. Margret Cuenca documented in this [facility]02-20-2024 Nurse Note* Margret Cuenca - 07/13/2023 12:01 PM EST Patient Identification confirmed: yes. Injection given and documented on MAR per provider order. Margret Cuenca documented in this [facility]02-20-2024 History of Present illness Narrative* Lois Holm [...] being cared for at the [facility] utilizing steroids, Plaquenil and injectable medic ation(Benlystal). The patient record indicating having had cardiac catheterization in [place] 3 years ago which was normal. I have the report available for my review. [facility] [...] treated by rheumatology at the [facility] on steroids, Plaquenil and monoclonal antibody [...] , Rfl: ergocalciferol (Vitamin D-2) 1.25 MG (32389 UT) capsule, Take 1 capsule (50,000 Units) [...] discussion and plan. [facility]St[facility] Work Phone: 1(309) 398-156902-20-2024 Instructions* Patient Instructions* Lila Tejeda LPN - [...] of your visit. documented in this [facility]: 1(724) 631-723002-13-2024 History of Present illness Narrative* Kade Early [...] , Rfl: ergocalciferol (Vitamin D2) 1.25 MG (92067 UT) capsule, Take 50,000 Units by mouth [...] Chronic laryngopharyngitis COVID-19 vaccine administered x 2 (PollVaultr) History of removal of cyst 2013 tailbone [...] reflexes: Stu's absent. Ankle clonus absent. Coordination Tfxixa-ot-wbwn, rapid alternating movements and iwix-th-hbej normal bilaterally without dysmetria. Gait Normal casual, toe, heel and tandem gait. Romberg is absent. Assessment/Plan Diagnoses and all orders for this visit: Autoimmune disease ([facility]) - Protein electrophoresis, serum; Future [...] Lyrica 100 mg TID. She is on kdwpikoccr17 mg once daily. Increase prednisone 10 mg BID for 10 days. documented in this encounterSSM DePaul Health [id number] History of Present illness Narrative* Michelle London Mitali, CLOTH DYEING RANGE TENDER-SINGLE POINTED OPERATOR - 06/09/2023 8:30 AM EST Ariadna Haley is a 42 y.o. female that presents to the office today for new patient evaluation asself referral for palpitations and elevated heart rates. She has a PMH of HTN, HLD, tachycardia, anemia, JOSE RAFAEL with CPAP compliance, lupus, autonomic dysfunction, arthritis, chronic back pain. She has undergone cardiac workup in the past in [place] as noted below. She also states that she follows withNeurology for possible POTS syndrome. Admits to daily tobacco use, 1 pack of cigarettes per day. Denies vaping, ETOH, recreational drugs. Admits to drinking approximately 1 pot of coffee per day. Denies daily exercise. 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 Family history negative [...] , Rfl: ergocalciferol (Vitamin D-2) 1.25 MG (23049 UT) capsule, Take 1 capsule (50,000 Units) [...] Anemia, unspecified Anxiety Autonomic dysfunction Depression, recurrent ([facility]) Discoid lupus erythematosus Chronic bilateral low back pain with bilateral sciatica Hyperlipidemia Obesity, Class III, BMI 40-49.9 (morbid obesity) ([facility]) Obstructive sleep apnea syndrome Arthritis [...] to prepare this document. documented in this [facility] Work Phone: 1(923) 312-219701-03-2024 Instructions* Patient Instructions* Christie Phan MD - 05/26/2023 5:43 PM EST Images from the original note were not included. https://CheckBonus/tofu-bolognese/ https://nutritionstudies.org/htv-rj-iujvfddgb-ohhbkarw-do-hcwvd-b-fhqpt-zctw-randee hv-bmacw-rctfscksx/ https://www.Rapt/blog/plantbasedkids https://Slicebooks/hzeht-mhzum-ncst-for-kids/ https://Micromidas/kwn-tt-vfrmcsgpmm-zywk-krce-fv-o-ctpkn-tfjvg-diet/ WHAT TO EAT? Breakfast: Overnight Oats Base [...] muffin, cooked egg/egg white, tomato, thin slice jamaican cheese Fresh berries, hard boiled egg, whole wheat toast Plain yogurt topped with berries, unsalted nuts, drizzle of honey Whole grain toast/Bermudian muffin topped with mashed avocado and tomatoes Lunch: Dinner leftovers packed in Tupperware, side of fruit Salad mixture topped with a protein (chick breast/tuna/hard boiled egg/beans), dressing and side offruit Dinner - Refer to plate senior production planner pictures to help select foods and portion ratios of protein, vegetables/starches. Keep it simple and rotate your favorite meals. Sheet nix meals Soups Grilled protein/vegetables/side of starch (plate senior production planner picture) Stir can with protein, mixed vegetables, and riced cauliflower or portion controlled whole grain rice. Make your own bowls - North Korean/South Sudanese/ theme Aguila with Zoodles (spiralized vegetable noodles). Roasted vegetable wraps Alter traditional recipes to reflect HIGH QUALITY ingredients in the right QUANTITIES. Snacks - portion controlled: Raw veggies (can have with hummus, mashed avocado, salsa). Unsalted nuts Fruit (1 serving). (optional side of peanut butter) Air pop popcorn Buckner and low fat jamaican cheese rolled up String cheese Protein balls (mix rolled oats, nut butter, flax seeds, dash almond milk). Beverages: Water Coffee, Hot tea Unsweetened ice tea EATING OUT: Research menu online, include nutritional information. Make your order decision before getting to restaurant. Stick to recommended portions (plate senior production planner picture). Ask for substitutions or modifications. [...] baked potato, sprouted grain bread, chick peas https://www.Ziklag Systems.com/article/4814412/gwumpyjmwpqvn-wstg-qvbl-for-beginners / https://www.[employer].com/category/4274/fuveyorssdidy-xuox-kvanyw/ https://www.[employer].com/category/4300/weyjjlswkyinf-rnbf-uvcj-plans/ My current favorite cookbooks are documented in this encounterScci Hospital [facility]01-03-2024 History of Present illness Narrative* Christie Phan MD - 05/26/2023 5:00 PM EST Images from the original note were not included. [facility] Follow-Up Appointment [...] to nutrition to work towards a [facility] diet Plan Diagnoses and all orders [...] the date of the service which included mrvf-ay-kszy patient care, completing clinical documentation, performing a medically appropriate examination, counseling and educating the patient/family/caregiver, and ordering medications, tests, or procedures. Christie Phan MD, MA, [facility] Lifestyle Medicine Specialist documented in this encounterScci Hospital [facility]ima12-04-2023 Miscellaneous Notes* Telephone Encounter - Renate Lawrence MA - 04/26/2023 5:26 PM EST Medication pending with new pharmacy information. documented in this encounterScci Hospital [facility]ima12-04-2023 History of Present illness Narrative* Christie Phan MD - 04/26/2023 4:15 PM EST Images from the original note were not included. [facility] Virtual Follow-Up [...] the date of the service which included rhup-wt-xgeg patient care, completing clinical documentation, performing a medically appropriate examination, counseling and educating the patient/family/caregiver, and ordering medications, tests, or procedures. I have communicated my name and active licensure. The patient's identity and physical location wereverified at the time of this visit. Either the patient or their legal medical device sales representative has been informed of the risks and benefits of -- and alternatives to -- treatment through a remote evaluation andconsents to proceed with the evaluation remotely. Christie Phan MD, MA, [facility] Lifestyle Medicine Specialist documented in this encounterScci Hospital [facility]ima12-04-2023 Nurse Note* Renate Lawrence MA - 04/26/2023 2:46 PM EST Spoke to Ariadna Haley, confirmed patient is registered on [email or web address] and is prepared for their appointment. Confirmed the patient has updated medications, allergies, and questionnaires via [email or web address]. Informed patient if there is an issue with the connection, provider will send the patient a secure link. If provider is running late, patient should remain connected to the visit. Patient verbalized understanding. documented in this [facility]11-30-2023 Miscellaneous Notes* Telephone Encounter - Enma Hamm, RN - 04/22/2023 3:48 PM EST Pt called for Iron results; possible need for transfusion. Pt aware no need for iron infusion at this time. Enma Hamm, RN documented in this [facility]11-24-2023 History of Present illness Narrative* Kenzie Shannon - 04/16/2023 10:55 AM EST Patient Identification confirmed: yes. Injection given and documented on JUL per provider order. Kenzie Shannon documented in this [facility]10-27-2023 History of Present illness Narrative* Kenzie Shannon - 03/19/2023 11:06 AM EDT Patient Identification confirmed: yes. Injection given and documented on JUL per provider order. Kenzie Shannon documented in this [facility]10-24-2023 History of Present illness Narrative* Marija Ziegler - 03/16/2023 10:13 AM EDT CMN RECEIVED BY [email or web address] VIA FAX, COMPLETED, AND PLACED IN PROVIDER MAILBOX FOR SIGNATURE On 2022 By Marija Ziegler [employer] SENDING CMN: JOSH SIGNED AND DATED CMN, FAXED TO DME & CONFIRMATION PAGE RECEIVED: 03.24.23 documented in this [facility]10-19-2023 History of Present illness Narrative* Beatriz Sanchez [...] LPN In Department: RHEUMATOLOGY documented in this encounterScci Hospital [facility]ima10-18-2023 Miscellaneous Notes* Telephone Encounter - Christie Phan MD - 03/10/2023 2:18 PM EDT Spoke with patient. We stopped her trulicity because of side effects. She only took the cymbalta for a week. She will restart and we will see how she is doing in 2 months. Have also ordered insulin labs to check for insulin resistance. documented in this encounterScci Hospital [facility]ima10-09-2023 Miscellaneous Notes* Telephone Encounter - Lynne Ni MD - 03/01/2023 3:27 PM EDT For chart: Eye exam 02/26/23 no ocular complication related to medication. * Telephone Encounter - Beatriz Sanchez LPN - 03/01/2023 2:38 PM EDT Received eye exam from [facility] on your desk for review. documented in this encounterScci Hospital [facility]ima09-29-2023 Nurse Note* Radha Kebede MA - 02/19/2023 11:48 AM EDT Patient Identification confirmed: yes. Injection given and documented on JUL per provider order. Radha Schofield MA documented in this encounterScci Hospital [facility]ima09-29-2023 Instructions* Patient Instructions* Vera Najera MD - 02/19/2023 11:40 AM EDT B12 shot today and every 4 weeks. Continue Folic acid. Follow up in 8 Weeks - labs 1 week before. documented in this encounterScci Hospital [facility]ima09-29-2023 History of Present illness Narrative* Vera Najera MD - 02/19/2023 11:32 AM EDT Images from the original note were not included. AMBULATORY TELEPHONE VISIT Ariadna B hugo has consented to this telephone encounter. Persons Present: Patient and myself Chief Complaint/Reason: Anemia; To review recent blood work. HPI: Total Time Spent: 21 minutes Rebekah Rojas APRN.SINGLE POINTED OPERATOR NAME: Ariadna Haley CLINIC NO.: [id number] DATE OF SERVICE: February 19, 2023 (Marquis) [...] lower lip done 2 days ago at [facility] - awaiting results. B12 helps [...] injections. 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 She has been told they [...] which included preparing to see the patient, ibuz-zc-qhog patient care, completing clinical documentation, performing a medically appropriate examination, counseling and educating the patient/family/caregiver, ordering medications, tests, or p rocedures, and independently interpreting results (not separately reported). Vera Najera MD, CPE Hematology and Oncology Services Provided at: [place], [place] CC: Manuel Ferris MD [address] [facility] [address] documented in this encounterScci Hospital [facility]ima09-26-2023 Miscellaneous Notes* Telephone Encounter - Lynne Ni [...] RAYRAY INJECTION TEACHING 03/11/2023 7:30 AM RHEU [facility] NICKIE VIDEO SPEC EST 08/12/2023 9:[address] [facility] Last Ophthalmology Check for Plaquenil [...] CBC [SQCBC] 04/25/23 01/25/24 01/24/23 Auth. provider: yLnne Ni MD Assoc. diagnoses: Anemia of chronic [...] diagnoses: Vitamin D deficiency documented in this encounterScci Hospital [facility]ima09-18-2023 Miscellaneous Notes* Telephone Encounter - Mirela Carlos - 02/08/2023 11:12 AM EDT Spoke with patient Will get labs done when she does labs in Dec for [place]yer/Onc Mailed orders for DXA to pt so she can go to [facility] Pre cert Benlyst Scheduled Teaching [...] accordingly. Lynne Ni MD documented in this encounterScci Hospital [facility]ima09-14-2023 History of Present illness Narrative* Carlene Rendon - 02/04/2023 9:31 AM EDT [facility] received prescription(s) for Benlysta from Dr. Ni. Benefits investigation was conducted, indicating that a prior authorization is required by patients plan with [facility]. Encounter will be updated once prior authorization has been submitted by [facility]. Carlene Rendon CPhT [facility], Inflammatory P: [phone] F: [phone] documented in this encounterScci Hospital [facility]09-14-2023 History of Present illness Narrative* Lynne Ni [...] Either the patient or their legal medical device sales representative has been informed of the [...] 4-8/10. Couple hrs AM stiffness. COVID vaccine PollVaultr 09/28/20, 10/19/20, 05/26/21. Feels safe at home. 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 Start azathioprine [...] video & audio (virtual) or phone or nudz-qm-ixsh patient care, completing clinical documentation, obtaining and/or [...] Workers' Compensation? No Do you need an data entry assistant? No [facility] MYCHART ZOOM MESSAGE Question 02/02/2023 10:32 PM [...] Yes Memory Loss: No Swollen Glands: Yes [facility] SLAQ QUESTIONNAIRE Question 02/02/2023 10:38 PM EDT [...] SLAQ Score (range: 0 - 47) 24 [facility] PROVIDER UNDERSTANDING CURRENT HEALTH RHEUMATOLOGY Question 02/02/2023 [...] < or = 5) documented in this encounterScci Hospital [facility]ima09-14-2023 Instructions* Patient Instructions* Lynne Ni MD - [...] (200mg) daily with a meal Please see job coach every 6-12months while on Hydroxychloroquine. azathioprine daily [...] your usual activities immediately. documented in this encounterScci Hospital [facility]ima09-05-2023 Miscellaneous Notes* Telephone Encounter - Maynor Bryson MA - 01/26/2023 7:46 AM EDT patient has viewed the Emergent One message per [employer]. * Telephone Encounter - Lynne Ni MD - 01/24/2023 8:04 PM EDT Please Call patient if [email or web address] note not read to review results/released to My Chart if tests completed at [facility]: mildly high normal wbc- will [...] accordingly. Lynne Ni MD documented in this encounterScci Hospital [facility]ima09-01-2023 Nurse Note* Radha Kebede MA - 01/22/2023 12:17 PM EDT Patient Identification confirmed: yes. Injection given and documented on JUL per provider order. Radha Schofield MA documented in this encounterScci Hospital [facility]ima08-22-2023 Miscellaneous Notes* Telephone Encounter - Christie Phan [...] the above prescription(s) to electronically send to [facility] pharmacy. Milagro Mendiola MA documented in this encounterScci Hospital [facility]ima08-11-2023 History of Present illness Narrative* Misty Nelson MD - 01/01/2023 10:51 AM EDT VIRTUAL VISIT PROGRESS NOTE This is a virtual visit using [email or web address] video visit. It required patient-provider interaction for themedical decision making as documented below. I have communicated my name and active licensure. The patient's identity and physical location wereverified at the time of this visit. 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 Misty Nelson MD documented in this encounterScci Hospital [facility]ima07-28-2023 Miscellaneous Notes* Telephone Encounter - Rebekah Rojas APRN.CNP - 12/18/2022 10:48 AM EDT Spoke with patient this morning, 12/18/2022. Rebekah Rojas APRN.TRUE * Telephone Encounter - Lidia Argueta RN - 12/18/2022 9:31 AM EDT Pt called restaurant front manager service last evening stating she was suppose to have a phone call with Rebekah at 330 and never received a call. Pt is still waiting (536 pm 12/17/22). Please advise Lidia Argueta RN documented in this encounterScci Hospital [facility]ima07-28-2023 History of Present illness Narrative* Rebekah Rojas [...] Total Time Spent: 21 minutes Rebekah Rojas APRN.SINGLE POINTED OPERATOR NAME: Tera Ariadna CLINIC NO.: [id number] DATE OF SERVICE: October 22, 2022 ([place]) [...] lower lip done 2 days ago at [facility] - awaiting results. B12 helps [...] injections. 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 She has been told they [...] which included preparing to see the patient, xrwu-dm-siyb patient care, completing clinical documentation, performing a medically appropriate examination, counseling and educating the patient/family/caregiver, ordering medications, tests, or p rocedures, and independently interpreting results (not separately reported). Vera Najera MD, CPE Hematology and Oncology Services Provided at: [place], [place] CC: Manuel Ferris MD [address] [facility] [address] documented in this encounterScci Hospital [facility]ima07-26-2023 Miscellaneous Notes* Telephone Encounter - Pamella Bettencourt RN - 12/16/2022 1:14 PM EDT Pt notified and verbalizes understanding. Clerical: Please change tomorrow's appointment to a phone visit at the end of Rebekah's day. Preferred number is [phone]. In addition, pt will be in next 12/25/22 @ 1130 for her B12 shot. Please add her to the MA schedule. Thanks! Pamella Bettencourt RN * Telephone Encounter - Rebekah Rojas APRN.TRUE - 12/16/2022 12:56 PM EDT That would be okay. Have her added at the end of the day. Thanks, Rebekah Rojas APRN.SINGLE POINTED OPERATOR * Telephone Encounter - Pamella Bettencourt RN [...] schedule? Pamella Bettencourt RN documented in this encounterScci Hospital [facility]ima07-23-2023 Miscellaneous Notes* Telephone Encounter - Vera Najera [...] advise Enma Hamm RN documented in this encounterScci Hospital [facility]ima07-04-2023 Miscellaneous Notes* Telephone Encounter - Lynne Ni [...] accordingly. Lynne Ni MD documented in this encounterScci Hospital [facility]ima06-29-2023 Nurse Note* Margret Cuenca - 11/19/2022 11:01 AM EDT Patient Identification confirmed: yes. Injection given and documented on MAR per provider order. Margret Cuenca documented in this encounterScci Hospital [facility]ima06-01-2023 Nurse Note* Stacy Gutiérrez Ma - 10/22/2022 11:50 AM EDT Patient Identification confirmed: yes. Injection given and documented on MAR per provider order. Stacy Gutiérrez Ma documented in this encounterScci Hospital [facility]ima06-01-2023 Instructions* Patient Instructions* Vera Najera MD - 10/22/2022 11:43 AM EDT B12 Shot today and every 4 weeks. Continue Folic acid. Follow up in 8 Weeks - labs 1 week before. documented in this encounterScci Hospital [facility]06-01-2023 History of Present illness Narrative* Vera Najera MD - 10/22/2022 11:35 AM EDT Images from the original note were not included. NAME: Tera Ariadna [facility] NO.: [id number] DATE OF SERVICE: October 22, 2022 ([place]) [...] lower lip done 2 days ago at [facility] - awaiting results. B12 helps [...] injections. 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 She has been told they [...] which included preparing to see the patient, zsqs-yd-bohx patient care, completing clinical documentation, performing a medically appropriate examination, counseling and educating the patient/family/caregiver, ordering medications, tests, or p rocedures, and independently interpreting results (not separately reported). Vera Najera MD, CPE Hematology and Oncology Services Provided at: [place], [place] CC: Manuel Ferris MD [address] [address] documented in this encounterScci Hospital [facility]ima05-04-2023 Nurse Note* Stacy Gutiérrez Ma - 09/24/2022 10:22 AM EDT Patient Identification confirmed: yes. Injection given and documented on JUL per provider order. Stacy Gutiérrez Ma documented in this encounterScci Hospital [facility]ima04-18-2023 Miscellaneous Notes* Telephone Encounter - Stacy Hernandez - 09/08/2022 2:27 PM EDT Pharmacy-Reviewed Medication History Patient Name:.Ariadna Haley : 1980 Patient Contact Attempt: First attempt Adherence Packing Program Accepted? No, patient does not wish to participate. Patient is not eligible for adherence packaging because PCP is not within [facility]. Patient wishes to continue at [facility] since medication bottles will look the same and then she can pick-up the medications when she needs them. Stacy Hernandez September 08, 2022 2:28 PM [facility] [phone] documented in this encounterScci Hospital [facility]ima04-17-2023 History of Present illness Narrative* Christie Phan MD - 09/07/2022 2:00 PM EDT Images from the original note were not included. [facility] Virtual Follow-Up [...] which included preparing to see the patient, nsln-pq-pnxh patient care, completing clinical documentation, performing a medically appropriate examination, counseling and educating the patient/family/caregiver, ordering medications, tests, or p rocedures, and communicating with other HCPs (not separately reported). I have communicated my name and active licensure. The patient's identity and physical location wereverified at the time of this visit. Either the patient or their legal medical device sales representative has been informed of the risks and benefits of -- and alternatives to -- treatment through a remote evaluation andconsents to proceed with the evaluation remotely. Christie Phan MD, MA, [facility] Lifestyle Medicine Specialist documented in this encounterScci Hospital [facility]ima04-17-2023 Nurse Note* Milagro Mendiola MA - 09/07/2022 2:00 PM EDT Called pt to do intake for video visit pt unavailable lft vm msg sent my chart. Milagro Mendiola MA documented in this encounterScci Hospital [facility]04-10-2023 Miscellaneous Notes* Telephone Encounter - Shantel Higgins MA - 08/31/2022 8:38 AM EDT called [facility] pharmacy - pharmacy had 1 refill remaining no action needed from our office documented in this encounterScci Hospital [facility]ima04-06-2023 Nurse Note* Stacy Gutiérrez Ma - 08/27/2022 10:31 AM EDT Patient Identification confirmed: yes. Injection given and documented on JUL per provider order. Stacy Gutiérrez Ma documented in this encounterScci Hospital [facility]ima04-06-2023 History of Present illness Narrative* Rebekah Rojas APRN.TRUE - 08/27/2022 10:00 AM EDT Images from the original note were not included. NAME: Ariadna Haley [facility] NO.: [id number] DATE OF SERVICE: August 27, 2022 (Bob) [...] injections. 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 She has been told they [...] stomach other (Crohn's [Other]) Mother Rebekah Rojas, CLOTH DYEING RANGE TENDER.SINGLE POINTED OPERATOR Hematology and Oncology Services Provided at: [place], [place] CC: Manuel Ferris MD [address] [facility] [address] I spent a total of 30 minutes on the date of the service which included preparing to see the patient, qbwi-ge-utfi patient care, completing clinical documentation, obtaining and/or reviewing separately obtained history, performing a medically appropriate examination, counseling and educating the pat ient/family/caregiver, ordering medications, tests, or procedures, independently interpreting results (not separately reported), and communicating results to the patient/family/caregiver. documented in this encounterScci [facility]03-29-2023 Miscellaneous Notes* Telephone Encounter - Freda Noland [...] low vitamin b12- take over the counter 2761-1111 mcg daily. Improved/ normal rest of rheum [...] accordingly. Lynne Ni MD documented in this encounterScci Hospital [facility]03-28-2023 Miscellaneous Notes* Telephone Encounter - Beatriz Sanchez [...] accordingly. Lynne Ni MD documented in this encounterScci Hospital [facility]03-20-2023 Miscellaneous Notes* Telephone Encounter - Christie Phan MD - 08/10/2022 9:46 AM EDT [facility] requesting refill, patient never started according to the chart and I have not seen her in follow-up. * Telephone Encounter - Jami Everett Cma - 08/10/2022 7:40 AM EDT [facility] Pharmacy request for the following refill(s): Requested Prescriptions Pending Prescriptions Disp Refills DULoxetine (CYMBALTA) 20 mg capsule [Pharmacy Med Name: DULOXETINE HCL DR 20 MG CAP] 30 capsule 2 Sig: TAKE 1 CAPSULE BY MOUTH ONCE DAILY Please review and advise. Jami Everett Cma documented in this encounterScci Hospital [facility]03-06-2023 Instructions* Patient Instructions* Lexus Heck APRN.TRUE - [...] treatment, there are resources available at the [facility] such as a nutrition consultation or referral to weight management programs at our [facility]. Please let us know if we can assist with a referral. - Continue CPAP at 5-15 cmH2O. - Remember to clean your mask and equipment regularly, as directed. - You should be eligible for new supplies approximately every 3-6 months, depending on your insurance coverage. Contact your [employer] ([employer]) company for new supplies. -Your insurance requires [...] the central scheduling system for the [facility] at [phone]. [facility] now offers direct scheduling for patients to schedule appointments. Virtual visits are also available. If not covered by your insurance, there is a 35% discount. Please contact your insurance to determine coverage. Call the office at [phone], option #5 for questions. documented in this encounterScci Hospital [facility]03-06-2023 History of Present illness Narrative* Lexus Heck APRN.CNP - 07/27/2022 10:30 AM EST Images from the original note were not included. [facility] Virtual Visit Follow up/ [...] will have a prescription sent to a [employer]u ([employer]) company - [employer] who will be calling you in the [...] Tips for good sleep hygiene shared in [facility]. - Follow up in 2 months in the office. Recommend scheduling this appointment now to ensure the besttime for you. [facility] on 04/13/22 CONSULT TO SLEEP MEDICINE - ADULT CPAP/BIPAP/OTHER PAP THERAPY ORDER Lawanda Miranda MD Interval history : Here for follow up for sleep apnea management. SLEEP APNEA Sleep apnea type : JOSE RAFAEL Most Recent Apnea-Hypopnea Index (AHI): 5.3 Treatment : PAP therapy DME: Josh MOJICA fax: [phone] [facility] ph: [phone] PAP History: Current PAP settin-15 cm H2O. [...] near accidents due to drowsy drivin [place] Sleepiness Scale 04/12/2022 07/23/2022 Score 4 (No [...] medications, tests, or procedures. documented in this encounterScci Hospital [facility]03-03-2023 Miscellaneous Notes* Telephone Encounter - Kyara Basurto [...] complete patient specific tasks. documented in this [facility]03-01-2023 Miscellaneous Notes* Telephone Encounter - Gem Mercedes RN - 07/22/2022 2:37 PM EST [email or web address] message sent documented in this [facility]12-28-2022 History of Present illness Narrative* Kenzie Shannon - 05/20/2022 2:28 PM EST Patient Identification confirmed: yes. Injection given and documented on JUL per provider order. Kenzie Shannon documented in this [facility]12-28-2022 Miscellaneous Notes* Addendum Note - Vera Najera MD - 05/20/2022 2:27 PM ESTAddended by: VERA NAJERA on: 05/20/2022 02:27 PM Modules accepted: Orders documented in this [facility]12-28-2022 Instructions* Patient Instructions* Vera Najera MD - 05/20/2022 2:23 PM EST B12 Shot Today and every 4 weeks Get fit for CPAP mask and setting this 05/28/2021 Continue Folic acid. RTC in 8 Weeks - labs 1 week before. documented in this encounterScci Hospital [facility]12-28-2022 History of Present illness Narrative* Vera Najera MD - 05/20/2022 1:30 PM EST Images from the original note were not included. NAME: Jose Carlosfrancisco javierAriadna [facility] NO.: [id number] DATE OF SERVICE: May 20, 2022 ([place]) [...] which included preparing to see the patient, [id number]-[id number] patient care, completing clinical documentation, performing a medically appropriate examination, counseling and educating the patient/family/caregiver, ordering medications, tests, or p rocedures, and independently interpreting results (not separately reported). Vera Najera MD, CPE Hematology and Oncology Services Provided at: [place], [place] CC: Vera Najera [address] [place] [address] [place] [address] Manuel Ferris MD, MD [address] [facility] [address] [place]: [place] [address] [place] [id number] documented in this encounterScci Hospital [facility]12-13-2022 Miscellaneous Notes* Telephone Encounter - Gem Mercedes RN - 05/05/2022 2:39 PM EST Faxed order, office notes, demographics, and sleep study to: DME name: Josh Seo DME fax: [phone] DME ph: [phone] Confirmation received. documented in this encounterScci Hospital [facility]12-13-2022 Miscellaneous Notes* Telephone Encounter - Gem Mercedes RN - 05/05/2022 12:00 PM EST MyChart message sent documented in this encounterScci Hospital [facility]12-13-2022 Miscellaneous Notes* Telephone Encounter - ANALILIA Monterroso - 05/05/2022 11:36 AM EST [facility] received your PAP order. Due to a major [employer] recall and manufacturing shortage, we are unable to fulfill the request to provide your patient with a CPAP/BIPAP machine at this time. We will keep the request on file and provide when inventory is available or you can forward the order to another DME provider such as [employer], [employer] or [employer]. Caring for our patients is our top priority and we apologize for this delay. Thank you for your patience during this time. [phone] #1 documented in this encounterScci Hospital [facility]12-02-2022 Miscellaneous Notes* Telephone Encounter - Ny Lance [...] doctor has noted concern for EDS. Her pond worker has told her that she has Lupus. Based on her history, I noted we can offer in-person evaluations for herself and/or her son to see if any genetic testing may be useful. I validated and provided support on the difficulty with her ambulation and transport concerns. [facility] at [facility]. I offered social work and/or transport assistance for the visit. She declined this and will discuss with her regarding the transport. She verbalized understanding the reasons for in-person evaluation recommended. She has the [facility] line and will call to reschedule for an in-person evaluation at [facility]. Ny Lance MD [employer], Associate Staff [facility] documented in this encounterScci Hospital [facility]11-30-2022 Miscellaneous Notes* Telephone Encounter - Eliza Licea, [...] copy of the report. Confirmed patient's email [email or web address] Eliza Licea Genetic Counselor Transmitter Tester documented in this encounterScci Hospital [facility]ima11-08-2022 Miscellaneous Notes* Telephone Encounter - Renate Lawrence MA - 03/31/2022 2:34 PM EST [facility] pharmacy electronically requests the following refill(s) Requested Prescriptions Pending Prescriptions Disp Refills DULoxetine (CYMBALTA) 20 mg capsule [Pharmacy Med Name: DULOXETINE HCL DR 20 MG CAP] 30 capsule 2 Sig: TAKE 1 CAPSULE BY MOUTH ONCE DAILY Renate Lawrence MA documented in this encounterScci Hospital [facility]11-07-2022 Miscellaneous Notes* Telephone Encounter - Maria Eugenia [...] Thanks. Misty Nelson MD documented in this [facility]11-07-2022 Miscellaneous Notes* Telephone Encounter - Maria Eugenia Sheehan LPN - 03/30/2022 11:49 AM EST LVM and sent MyChart regarding Dr. Nelson's directive. documented in this encounterScci Hospital [facility]ima10-26-2022 Instructions* Patient Instructions* Vera Najera MD - 03/18/2022 11:16 AM EDT Referral for sleep study pending Start on Folic acid. RTC in 8 Weeks - labs 1 week before. documented in this encounterScci Hospital [facility]10-26-2022 History of Present illness Narrative* Vera Najera MD - 03/18/2022 10:45 AM EDT Images from the original note were not included. NAME: Ariadna Haley [facility] NO.: [id number] DATE OF SERVICE: March 18, 2022 ([place]) [...] but decreasing. Initial Visit, March 04, 2022: Araidna Haley presents today Hematology and Oncology evaluation. [...] which included preparing to see the patient, [id number] patient care, completing clinical documentation, performing a medically appropriate examination, counseling and educating the patient/family/caregiver, ordering medications, tests, or p rocedures, and independently interpreting results (not separately reported). Vera Najera MD, CPE Hematology and Oncology Services Provided at: [place], [place] CC: Manuel Ferris MD [address] [facility] [address] documented in this encounterScci Hospital [facility]ima10-18-2022 History of Present illness Narrative* Misty Nelson MD - 03/10/2022 2:14 PM EDT VIRTUAL VISIT PROGRESS NOTE This is a virtual visit using [email or web address] video visit. It required patient-provider interaction for [...] the HR increases again She sees a scalloper in [place] PCP is running the Holter and echo [...] but was not pursued yet Lives in [place] She did have LN biopsy in the [...] visit. Misty Nelson MD documented in this encounterScci Hospital [facility]10-17-2022 History of Past illness Narrative* ProblemNoted DateDiagnosed DateResolved DateObesity, Class II, BMI 35-39.910//Obesity (BMI 30-39.9)/documented as of this encounter (statuses as of 03/10/2023) [address]17-2022 History of Past illness Narrative* ProblemNoted Date Diagnosed DateResolved DateObesity, Class II, BMI 35-39.910// Obesity (BMI 30-39.9)documented as of this encounter (statuses as of 03/11/2023) [address]17-2022 History of Past illness Narrative* ProblemNoted Date Diagnosed DateResolved DateObesity, Class II, BMI 35-39.910// Obesity (BMI 30-39.9)documented as of this encounter (statuses as of 03/19/2023) [facility] of Past illness Narrative* ProblemNoted Date Diagnosed DateResolved DateObesity, Class II, BMI 35-39.910// Obesity (BMI 30-39.9)documented as of this encounter (statuses as of 03/24/2023) [facility] History of Past illness Narrative* ProblemNoted Date Diagnosed DateResolved DateObesity, Class II, BMI 35-39.910// Obesity (BMI 30-39.9)documented as of this encounter (statuses as of 04/16/2023) [address]17-2022 History of Past illness Narrative* ProblemNoted Date Diagnosed DateResolved DateObesity, Class II, BMI 35-39.910// Obesity (BMI 30-39.9)documented as of this encounter (statuses as of 04/23/2023) [address]17-2022 History of Past illness Narrative* ProblemNoted Date Diagnosed DateResolved DateObesity, Class II, BMI 35-39.910/17/ Obesity (BMI 30-39.9)documented as of this encounter (statuses as of 04/27/2023) [address]17-2022 History of Past illness Narrative* ProblemNoted Date Diagnosed DateResolved DateObesity, Class II, BMI 35-39.910/ Obesity (BMI 30-39.9)documented as of this encounter (statuses as of 04/27/2023) [address]17-2022 History of Past illness Narrative* ProblemNoted Date Diagnosed DateResolved DateObesity, Class II, BMI 35-39.91/ Obesity (BMI 30-39.9)documented as of this encounter (statuses as of 05/31/2023) [address]17-2022 History of Past illness Narrative* ProblemNoted Date Diagnosed DateResolved DateObesity, Class II, BMI 35-39.910/ Obesity (BMI 30-39.9)documented as of this encounter (statuses as of 07/13/2023) [address]17-2022 History of Past illness Narrative* ProblemNoted Date Diagnosed DateResolved DateObesity, Class II, BMI 35-39.910/ Obesity (BMI 30-39.9)documented as of this encounter (statuses as of 07/13/2023) [address]17-2022 History of Past illness Narrative* ProblemNoted Date Diagnosed DateResolved DateObesity, Class II, BMI 35-39.910/ Obesity (BMI 30-39.9)documented as of this encounter (statuses as of 08/05/2023) [address]17-2022 History of Past illness Narrative* ProblemNoted Date Diagnosed DateResolved DateObesity, Class II, BMI 35-39.910// Obesity (BMI 30-39.9)documented as of this encounter (statuses as of 08/12/2023) [facility] of Past illness Narrative* ProblemNoted Date Diagnosed DateResolved DateObesity, Class II, BMI 35-39.910// Obesity (BMI 30-39.9)documented as of this encounter (statuses as of 09/01/2023) [facility] of Past illness Narrative* ProblemNoted Date Diagnosed DateResolved DateObesity, Class II, BMI 35-39.910// Obesity (BMI 30-39.9)documented as of this encounter (statuses as of 09/06/2023) [facility] History of Past illness Narrative* ProblemNoted Date Diagnosed DateResolved DateObesity, Class II, BMI 35-39.910// Obesity (BMI 30-39.9)documented as of this encounter (statuses as of 09/11/2023) [facility] Instructions* Patient Instructions* Christie Phan MD - 03/09/2022 12:47 PM EDT Check EKG for prolonged QT. If normal, I would try going back on the Lexapro, can recheck an EKG inabout a month to make sure that things are going ok. (I'm leaving this, but we are changing to Cymbalta) Tilt Table Test [email or web address] documented in this encounterScci Hospital [facility]ima10-17-2022 History of Present illness Narrative* Christie Phan MD - 03/09/2022 12:08 PM EDT Images from the original note were not included. [facility] Virtual Initial [...] ago Has never really been a great clinical liaison Went to [place] was able to walk [...] the date of the service which included ncpy-sa-kyiw patient care and counseling and educating the patient/family/caregiver. documented in this encounterScci Hospital [facility]10-14-2022 Miscellaneous Notes* Telephone Encounter - Krista Braswell MA - 03/06/2022 7:08 AM EDT Pt was notified via . * Telephone Encounter - Lynne Ni MD - 03/05/2022 5:56 PM EDT Please Call patient if MyChart note not read to review results/released to My Chart if tests completed at [facility]: Mildly high vitamin b12- decrease over [...] accordingly. Lynne Ni MD documented in this encounterScci Hospital [facility]10-12-2022 Instructions* Patient Instructions* Vera Najera MD - 03/04/2022 11:42 AM EDT Labs today. Referral for sleep study. RTC in 2 weeks. Consider immunology referral. Referral to lifestyle medicine documented in this encounterScci Hospital [facility]10-12-2022 History of Present illness Narrative* Vera Najera MD - 03/04/2022 11:19 AM EDT Images from the original note were not included. NAME: Ariadna Haley [facility] NO.: [id number] DATE OF SERVICE: March 04, 2022 Referring [...] which included preparing to see the patient, yqls-cu-ugth patient care, completing clinical documentation, obtaining and/or reviewing separately obtained history, performing a medically appropriate examination, counseling and educating the pat ient/family/caregiver, ordering medications, tests, or procedures, and independently interpreting results (not separately reported). Vera Najera MD, CPE Hematology and Oncology Services Provided at: [place], [place] CC: Manuel Ferris MD [address] [id number] Manuel Ferris MD, MD [address] [id number] documented in this encounterScci Hospital [facility]ima2022 History of Present illness Narrative* Alhaji Patrickhman, - 02/24/2022 6:00 PM EDT VIRTUAL VISIT PROGRESS NOTE This is a virtual visit using [email or web address] video visit. 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 Most of her travel is [...] DO February 24, 2022 documented in this encounterScci [facility]07-06-2022 Evaluation note* Encounter Date Diagnosis Assessment Notes [...] see rheumatology and is on hydroxychloroquine. Her pond worker is Dr. Ni. Dr. Ni and I [...] (ICD-10 - R00.0) Nov,Flushing (ICD-10 - R23.2) Planitax Other 06-03-2022 Nurse Note* Lynne Ni MD - 10/24/2021 8:32 AM EDT See progress note documented in this encounterScci Hospital [facility]06-03-2022 History of Present illness Narrative* Lynne Ni [...] Due for eye exam. Labs sent to [place]/completed in 06/2021 (no results faxed to office, [...] pain: yes H/o precedent/frequent infection(s): as above Enthesopathy/Morriston's/heel/plantar tenderness: hands random painful/tingling Skin thickening, psoriasis, [...] Date(s) Administered COVID-19 vaccine, age 12+ yr (Carticipate - PURPLE TOP) 09/28/2020 10/19/2020 Pneumovax no [...] Diagnostic tests reviewed for today's visit: Outside [place] 06/2021 low vitamin D 16, vitamin b12-307;high [...] (200mg) daily with a meal Please see job coach every 6-12months while on Hydroxychloroquine. Recommend goal: [...] video & audio (virtual) or phone or kcky-nj-lcmq patient care, completing clinical documentation, obtaining and/or [...] the pleasure of seeing your patient, Ariadna Halye. I have enclosed a copy of my [...] body? With SOME difficulty Bend down to corn picker clothing from the floor? With SOME [...] my health Strongly Agree documented in this encounterScci Hospital [facility]06-03-2022 Instructions* Patient Instructions* Lynne Ni MD - [...] (200mg) daily with a meal Please see job coach every 6-12months while on Hydroxychloroquine. Recommend goal: [...] provider/pain clinic Thank you. documented in this encounterScci Hospital [facility]05-25-2022 Evaluation note* Encounter Date Diagnosis Assessment Notes [...] lupus diagnosis Rachel defer that to her pond worker. September,Tachycardia (ICD-10 - R00.0) September,Flushing (ICD-10 - R23.2) Planitax Other 04-28-2022 Evaluation note* Encounter Date Diagnosis Assessment Notes Treatment Notes Treatment Clinical Notes Aug, Elevated sed rate (ICD-10 - R70. 0) Planitax Other 04-21-2022 Evaluation note* Encounter Date Diagnosis [...] lupus diagnosis Rachel defer that to her pond worker. Planitax Other 05-17-2021 Hospital Discharge instructions* Instructions* So [...] * nitroglycerin (oral/sublingual) (Bermudian) documented in this encounterSelect [facility] Phone: [phone]) 183-766705-17-2021 History of Present illness Narrative* So [place] [...] be completed. documented in this encounterSelect [facility] Hospital[facility] Phone: [phone] 713-203101-08-2015 History of Past illness Narrative* Problem Noted DateResolved DateObesity (BMI 30-39.9)documented as of this encounter (statuses as of 10/24/2021) [facility] of [facility] illness Narrative* ProblemNoted Date Resolved DateObesity (BMI 30-39.9)documented as of this encounter (statuses as of 02/25/2022) [facility] of Past illness Narrative* ProblemNoted Date Resolved DateObesity (BMI 30-39.9)documented as of this encounter (statuses as of 03/02/2022) [facility] of Past illness Narrative* ProblemNoted Date Resolved DateObesity (BMI 30-39.9)documented as of this encounter (statuses as of 03/04/2022) [facility] of Past illness Narrative* ProblemNoted Date Resolved DateObesity (BMI 30-39.9)documented as of this encounter (statuses as of 03/05/2022) [facility] of Past illness Narrative* ProblemNoted Date Resolved DateObesity (BMI 30-39.9)documented as of this encounter (statuses as of 03/06/2022) [facility] of Past illness Narrative* ProblemNoted Date Resolved DateObesity (BMI 30-39.9)documented as of this encounter (statuses as of 03/09/2022) [facility] History of Past illness Narrative* ProblemNoted Date Resolved DateObesity (BMI 30-39.9)documented as of this encounter (statuses as of 03/10/2022) [facility] History of Past illness Narrative* ProblemNoted Date Resolved DateObesity (BMI 30-39.9)documented as of this encounter (statuses as of 03/10/2022) [facility] of Past illness Narrative* ProblemNoted Date Resolved DateObesity (BMI 30-39.9)documented as of this encounter (statuses as of 03/12/2022) [facility] of Past illness Narrative* ProblemNoted Date Resolved DateObesity (BMI 30-39.9)documented as of this encounter (statuses as of 03/18/2022) [facility] of Past illness Narrative* ProblemNoted Date Resolved DateObesity (BMI 30-39.9)documented as of this encounter (statuses as of 03/22/2022) [facility] of Past illness Narrative* ProblemNoted Date Resolved DateObesity (BMI 30-39.9)documented as of this encounter (statuses as of 03/30/2022) [address]08-2015 History of Past illness Narrative* ProblemNoted Date Resolved DateObesity (BMI 30-39.9)documented as of this encounter (statuses as of 03/30/2022) [facility] of Past illness Narrative* ProblemNoted Date Resolved DateObesity (BMI 30-39.9)documented as of this encounter (statuses as of 04/03/2022) [facility] of Past illness Narrative* ProblemNoted Date Resolved DateObesity (BMI 30-39.9)documented as of this encounter (statuses as of 04/03/2022) [address]08-2015 History of Past illness Narrative* ProblemNoted Date Resolved DateObesity (BMI 30-39.9)documented as of this encounter (statuses as of 04/22/2022) [facility] of Past illness Narrative* ProblemNoted Date Resolved DateObesity (BMI 30-39.9)documented as of this encounter (statuses as of 04/24/2022) [address]08-2015 History of Past illness Narrative* ProblemNoted Date Resolved DateObesity (BMI 30-39.9)documented as of this encounter (statuses as of 05/05/2022) [facility] of Past illness Narrative* ProblemNoted Date Resolved DateObesity (BMI 30-39.9)documented as of this encounter (statuses as of 05/05/2022) [facility] of Past illness Narrative* ProblemNoted Date Resolved DateObesity (BMI 30-39.9)documented as of this encounter (statuses as of 05/05/2022) [facility] of Past illness Narrative* ProblemNoted Date Resolved DateObesity (BMI 30-39.9)documented as of this encounter (statuses as of 05/26/2022) [facility] of Past illness Narrative* ProblemNoted Date Resolved DateObesity (BMI 30-39.9)documented as of this encounter (statuses as of 05/27/2022) [facility] of Past illness Narrative* ProblemNoted Date Resolved DateObesity (BMI 30-39.9)documented as of this encounter (statuses as of 07/22/2022) [facility] of [facility] illness Narrative* ProblemNoted Date Resolved DateObesity (BMI 30-39.9)documented as of this encounter (statuses as of 07/25/2022) [facility] of [facility] illness Narrative* ProblemNoted Date Resolved DateObesity (BMI 30-39.9)documented as of this encounter (statuses as of 07/27/2022) [facility] of Past illness Narrative* ProblemNoted Date Resolved DateObesity (BMI 30-39.9)documented as of this encounter (statuses as of 07/28/2022) [facility] of Past illness Narrative* ProblemNoted Date Resolved DateObesity (BMI 30-39.9)documented as of this encounter (statuses as of 08/10/2022) [facility] History of Past illness Narrative* ProblemNoted Date Resolved DateObesity (BMI 30-39.9)documented as of this encounter (statuses as of 08/18/2022) [facility] History of Past illness Narrative* ProblemNoted Date Resolved DateObesity (BMI 30-39.9)documented as of this encounter (statuses as of 08/19/2022) [facility] History of Past illness Narrative* ProblemNoted Date Resolved DateObesity (BMI 30-39.9)documented as of this encounter (statuses as of 08/27/2022) [facility] History of Past illness Narrative* ProblemNoted Date Resolved DateObesity (BMI 30-39.9)documented as of this encounter (statuses as of 08/29/2022) [facility] History of Past illness Narrative* ProblemNoted Date Resolved DateObesity (BMI 30-39.9)documented as of this encounter (statuses as of 08/31/2022) [facility] History of Past illness Narrative* ProblemNoted Date Resolved DateObesity (BMI 30-39.9)documented as of this encounter (statuses as of 09/08/2022) [facility] History of Past illness Narrative* ProblemNoted Date Resolved DateObesity (BMI 30-39.9)documented as of this encounter (statuses as of 09/08/2022) [facility] History of Past illness Narrative* ProblemNoted Date Resolved DateObesity (BMI 30-39.9)documented as of this encounter (statuses as of 09/24/2022) [facility] History of Past illness Narrative* ProblemNoted Date Resolved DateObesity (BMI 30-39.9)documented as of this encounter (statuses as of 10/22/2022) [facility] History of Past illness Narrative* ProblemNoted Date Resolved DateObesity (BMI 30-39.9)documented as of this encounter (statuses as of 10/25/2022) [facility] History of Past illness Narrative* ProblemNoted Date Resolved DateObesity (BMI 30-39.9)documented as of this encounter (statuses as of 11/19/2022) [facility] History of Past illness Narrative* ProblemNoted Date Resolved DateObesity (BMI 30-39.9)documented as of this encounter (statuses as of 11/25/2022) [facility] History of Past illness Narrative* ProblemNoted Date Diagnosed DateResolved DateObesity (BMI 30-39.9)documented as of this encounter (statuses as of 12/08/2022) [facility] History of Past illness Narrative* ProblemNoted Date Diagnosed DateResolved DateObesity (BMI 30-39.9)documented as of this encounter (statuses as of 12/18/2022) [facility] History of Past illness Narrative* ProblemNoted Date Diagnosed DateResolved DateObesity (BMI 30-39.9)documented as of this encounter (statuses as of 12/18/2022) [facility] History of Past illness Narrative* ProblemNoted Date Diagnosed DateResolved DateObesity (BMI 30-39.9)documented as of this encounter (statuses as of 12/21/2022) [facility] History of Past illness Narrative* ProblemNoted Date Diagnosed DateResolved DateObesity (BMI 30-39.9)documented as of this encounter (statuses as of 12/22/2022) [facility] History of Past illness Narrative* ProblemNoted Date Diagnosed DateResolved DateObesity (BMI 30-39.9)documented as of this encounter (statuses as of 01/02/2023) [facility] History of Past illness Narrative* ProblemNoted Date Diagnosed DateResolved DateObesity (BMI 30-39.9)documented as of this encounter (statuses as of 01/13/2023) [facility] History of Past illness Narrative* ProblemNoted Date Diagnosed DateResolved DateObesity (BMI 30-39.9)documented as of this encounter (statuses as of 01/22/2023) [facility] History of Past illness Narrative* ProblemNoted Date Diagnosed DateResolved DateObesity (BMI 30-39.9)documented as of this encounter (statuses as of 01/26/2023) [facility] History of Past illness Narrative* ProblemNoted Date Diagnosed DateResolved DateObesity (BMI 30-39.9)documented as of this encounter (statuses as of 02/04/2023) [facility] History of Past illness Narrative* ProblemNoted Date Diagnosed DateResolved DateObesity (BMI 30-39.9)documented as of this encounter (statuses as of 02/04/2023) [facility] History of Past illness Narrative* ProblemNoted Date Diagnosed DateResolved DateObesity (BMI 30-39.9)documented as of this encounter (statuses as of 02/07/2023) [facility] History of Past illness Narrative* ProblemNoted Date Diagnosed DateResolved DateObesity (BMI 30-39.9)documented as of this encounter (statuses as of 02/08/2023) [facility] History of Past illness Narrative* ProblemNoted Date Diagnosed DateResolved DateObesity (BMI 30-39.9)documented as of this encounter (statuses as of 02/16/2023) [facility] History of Past illness Narrative* ProblemNoted Date Diagnosed DateResolved DateObesity (BMI 30-39.9)documented as of this encounter (statuses as of 02/19/2023) [facility] History of Past illness Narrative* ProblemNoted Date Diagnosed DateResolved DateObesity (BMI 30-39.9)documented as of this encounter (statuses as of 02/21/2023) [facility] History of Past illness Narrative* ProblemNoted Date Diagnosed DateResolved DateObesity (BMI 30-39.9)documented as of this encounter (statuses as of 03/02/2023) [facility] Other systemic lupus erythematosus with [...] and myositis, unspecified [facility] Swelling of lymph nodes- [...] C-reactive protein (CRP) [facility] Diagnosis 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 Other vitamin B12 deficiency anemia Somnolence, daytime Hypersomnia, unspecified Snoring Other dyspnea and respiratory abnormality Chronic fatigue and malaise Chronic fatigue syndrome Obesity, unspecified classification, unspecified obesity type, unspecified whether serious comorbidity present [facility] Diagnosis Obesity, Class II, BMI [...] nonspecific immunological findings [facility] Diagnosis Megaloblastic anemia due to vitamin B12 deficiency- Primary Other vitamin B12 deficiency anemia High total serum IgM [facility] Diagnosis Raised level of immunoglobulins- Primary Other and unspecified nonspecific immunological findings Wound healing, delayed Open wound(s) (multiple) of unspecified site(s), complicated Current smoker Tobacco use disorder [facility] Family history of genetic disease- Primary Family history of other condition [facility] Diagnosis High total serum IgM- [...] Anemia of other chronic disease 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 Encounter for long-term (current) use of other medications [facility] Megaloblastic anemia due to vitamin B12 deficiency- Primary Other vitamin B12 deficiency anemia Elevated sed rate Elevated sedimentation rate [facility] Diagnosis Megaloblastic anemia due to [...] apnea (adult) (pediatric) [facility] [place] [facility] Diagnosis Megaloblastic anemia due to vitamin B12 deficiency- Primary Other vitamin B12 deficiency anemia Elevated sed rate Elevated sedimentation rate [facility] [place] [facility] Diagnosis Other systemic lupus erythematosus with other organ involvement (HCC) 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 Encounter for long-term (current) use of other medications [facility] Diagnosis Megaloblastic anemia due to vitamin B12 deficiency- Primary Other vitamin B12 deficiency anemia Chronic fatigue and malaise Chronic fatigue syndrome [facility] [place] [facility] Diagnosis High total serum IgM- Primary Low serum IgG for age Current smoker Tobacco use disorder [facility] Diagnosis Obesity, Class II, BMI 35-39.9 Obesity, unspecified Prediabetes Other abnormal glucose [facility] [place] [facility] Diagnosis Megaloblastic anemia due to vitamin B12 deficiency- Primary Other vitamin B12 deficiency anemia Elevated sed rate Elevated sedimentation rate [facility] [place] [facility] Diagnosis Other systemic lupus erythematosus with other organ involvement (HCC)- Primary Vitamin D deficiency Unspecified vitamin D deficiency Elevated LFTs Other abnormal blood chemistry Anemia of chronic disease Anemia of other chronic disease Elevated sed rate Elevated sedimentation rate Elevated C-reactive protein (CRP) [facility] [place] [facility] Diagnosis Other [...] involvement (HCC)- Primary [facility] [place] [facility]* Diagnosis Megaloblastic anemia due to vitamin B12 deficiency- Primary Other vitamin B12 deficiency anemia High total serum IgM Elevated sed rate Elevated sedimentation rate [facility] [place] [facility] Diagnosis Other systemic lupus erythematosus with other organ involvement (HCC)- Primary [facility] Diagnosis Other systemic lupus erythematosus with other organ involvement (HCC) Encounter for correction current use of azathioprine Encounter for long-term (current) use of other medications [facility] [place] [facility] Diagnosis Megaloblastic anemia due to vitamin B12 deficiency- Primary Other vitamin B12 deficiency anemia Elevated sed rate Elevated sedimentation rate [facility] [place] [facility] Diagnosis Megaloblastic anemia due to vitamin B12 deficiency- Primary Other vitamin B12 deficiency anemia Elevated sed rate Elevated sedimentation rate Chronic fatigue and malaise Chronic fatigue syndrome High total serum IgM JOSE RAFAEL (obstructive sleep apnea) Obstructive sleep apnea (adult) (pediatric) [facility] [place] [facility] Diagnosis Insulin resistance, unspecified- Primary Depression, recurrent (HCC) Major depressive disorder, recurrent episode, unspecified Chronic pain syndrome [facility] [place] [facility]* Diagnosis Systemic lupus erythematosus, unspecified SLE type, unspecified organ involvement status (HCC)- Primary [facility] [place] [facility]* Diagnosis Megaloblastic anemia due to vitamin B12 deficiency- Primary Other vitamin B12 deficiency anemia Elevated sed rate Elevated sedimentation rate [facility] [place] [facility]* Diagnosis Megaloblastic anemia due to vitamin B12 deficiency- Primary Other vitamin B12 deficiency anemia Elevated sed rate Elevated sedimentation rate [facility] [place] [facility] Diagnosis Obesity, Class III, BMI >= 40- Primary Morbid obesity FUO (fever of unknown origin) Fever, unspecified Other chronic pain [facility] [place] [facility] Diagnosis Obesity, Class III, BMI >= 40 Morbid obesity [facility] [place] [facility] Diagnosis Obesity, Class III, BMI >= 40- Primary Morbid obesity Other chronic pain [facility] Diagnosis Irregular heart rate- Primary Essential hypertension Unspecified essential hypertension Autonomic dysfunction Obstructive sleep apnea syndrome Obstructive sleep apnea (adult) (pediatric) Primary hypertension Unspecified essential hypertension documented in this encounter [facility] Work Phone: Evaluation note* Diagnosis Autoimmune disease (CMS/HCC)- Primary Autoimmune disease, not elsewhere classified Autonomic dysfunction Lumbosacral radiculopathy Thoracic or lumbosacral neuritis or radiculitis, unspecified Bilateral leg weakness Muscle weakness (generalized) [facility] Shortness of breath- Primary Paroxysmal supraventricular tachycardia PAC (premature atrial contraction) Supraventricular premature beats Current smoker Systemic lupus erythematosus, unspecified SLE type, unspecified organ involvement status ([facility]) Palpitations Obstructive sleep apnea syndrome Obstructive sleep apnea (adult) (pediatric) Morbid obesity ([facility]/HCC) Morbid obesity Bilateral lower extremity edema documented in this encounter [facility] Work Phone: Evaluation note* Diagnosis Megaloblastic anemia due to vitamin B12 deficiency- Primary Other vitamin B12 deficiency anemia Elevated sed rate Elevated sedimentation rate [facility] [place] [facility] Diagnosis Systemic lupus erythematosus with other organ involvement (HCC)- Primary [facility] [place] [facility] Diagnosis Systemic lupus erythematosus with other organ involvement (HCC)- Primary [facility] [place] [facility] Diagnosis Megaloblastic anemia due to vitamin B12 deficiency- Primary Other vitamin B12 deficiency anemia Elevated sed rate Elevated sedimentation rate [facility] [place] [facility] Diagnosis Other systemic lupus erythematosus with other organ involvement (HCC)- Primary Vitamin D deficiency Unspecified vitamin D deficiency Elevated LFTs Other abnormal blood chemistry Anemia of chronic disease Anemia of other chronic disease Elevated sed rate Elevated sedimentation rate Elevated C-reactive protein (CRP) [facility] [place] [facility] Diagnosis Megaloblastic anemia due to vitamin B12 deficiency- Primary Other vitamin B12 deficiency anemia Obstructive sleep apnea syndrome Obstructive sleep apnea (adult) (pediatric) Chronic fatigue and malaise Chronic fatigue syndrome High total serum IgM JOSE RAFAEL (obstructive sleep apnea) Obstructive sleep apnea (adult) (pediatric) Somnolence, daytime Hypersomnia, unspecified [facility] Diagnosis Elevated sed rate- Primary Elevated [...] of nutritional deficiency [facility] Diagnosis Elevated sed rate- Primary [...] for pulmonary tuberculosis [facility] [place] [facility] Diagnosis Other systemic lupus erythematosus with other organ involvement (HCC) [facility] [place] [facility] Diagnosis Systemic lupus erythematosus with other organ involvement (HCC)- Primary [facility] [place] [facility]* Diagnosis Elevated sed rate- Primary Elevated sedimentation rate Megaloblastic anemia due to vitamin B12 deficiency Other vitamin B12 deficiency anemia [facility] [place] [facility] Diagnosis Pseudomonas infection- Primary Pseudomonas infection in conditions classified elsewhere and of unspecified site Other systemic lupus erythematosus with other organ involvement (HCC) On prednisone therapy Long-term use of Plaquenil Encounter for long-term (current) use of other medications [facility] [place] [facility] Diagnosis Onset Date Resolution Status Lupus acuteRecurrent Clostridioides difficile diarrheaacuteNipple discharge in female acuteRecurrent Clostridioides difficile diarrheaacuteLumbosacral spondylosis acuteOther chronic painacuteSacroiliitisacute [facility] Work Phone: Evaluation note* Diagnosis JOSE RAFAEL (obstructive sleep apnea)- Primary Obstructive sleep apnea (adult) (pediatric) Somnolence, daytime Hypersomnia, unspecified [facility] [place] [facility]* Diagnosis Systemic lupus erythematosus with other organ involvement (HCC)- Primary [facility] [place] [facility]* Diagnosis Systemic lupus erythematosus with other organ involvement (HCC)- Primary [facility] [place] [facility]* Diagnosis Onset Date Resolution Status Nipple discharge in female acuteRecurrent Clostridioides difficile diarrheaacuteLumbosacral spondylosis acuteOther chronic painacuteSacroiliitisacute [facility] Work Phone: Evaluation note* Diagnosis Elevated sed rate- Primary Elevated sedimentation rate Megaloblastic anemia due to vitamin B12 deficiency Other vitamin B12 deficiency anemia [facility] [place] [facility] Diagnosis Onset Date Resolution Status Nipple discharge in female acuteRecurrent Clostridioides difficile diarrheaacuteLumbosacral spondylosis acuteOther chronic painacuteSacroiliitisacuteLumbosacral spondylosisacuteOther chronic painacuteS[facility]iliitis[facility] Work [facility]: [facility] note* Diagnosis Lumbosacral radiculopathy at L5 Degenerative disc disease, lumbar Cervical radiculopathy at C5 documented [facility] encounter [facility]* Diagnosis Onset Date Resolution Status Lumbosacral spondylosis acuteOther chronic painacuteSacroiliitisacuteLumbosacral spondylosisacuteOther chronic painacuteSacroiliitisacute [facility] Work Phone: Evaluation note* Diagnosis Other systemic lupus erythematosus with other organ involvement (HCC) [facility] Diagnosis Other systemic lupus erythematosus with [...] both feet 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 Encounter for long-term (current) use of steroids Bilateral hand pain Pain in limb Systemic lupus erythematosus, unspecified SLE type, unspecified organ involvement status (HCC) Vitamin B12 deficiency Other B-complex deficiencies Discoid lupus erythematosus Lupus erythematosus [facility] Diagnosis Nipple discharge Other sign and symptom in breast documented in this encounter [facility]* Diagnosis Elevated sed rate- Primary Elevated sedimentation rate Megaloblastic anemia due to vitamin B12 deficiency Other vitamin B12 deficiency anemia [facility] Diagnosis Abnormal uterine bleeding (AUB) Menorrhagia with regular cycle documented in this encounter [facility]* Diagnosis Megaloblastic anemia due to vitamin B12 deficiency- Primary Other vitamin B12 deficiency anemia High total serum IgM JOSE RAFAEL (obstructive sleep apnea) Obstructive sleep apnea (adult) (pediatric) Elevated sed rate Elevated sedimentation rate Hypogammaglobulinemia (HCC) Hypogammaglobulinaemia, unspecified Frequent infections [facility] Diagnosis Oral thrush- Primary Candidiasis of mouth documented in this encounter [facility]* Diagnosis Oral thrush- Primary Candidiasis of mouth documented in this encounter [facility]* Diagnosis Systemic lupus erythematosus with other organ involvement (HCC)- Primary [facility] Diagnosis LPRD (laryngopharyngeal reflux disease)- Primary Acute laryngitis, without mention of obstruction Acute otalgia, right documented in this encounter [facility]* Diagnosis Autoimmune disease (CMS/HCC) Autoimmune disease, not elsewhere classified Fibromyalgia Unspecified myalgia and myositis Numbness Disturbance of skin sensation documented in this encounter [facility]* Diagnosis Lumbosacral radiculopathy at L5- Primary Degenerative disc disease, lumbar Cervical radiculopathy at C5 documented in this encounter [facility]* Diagnosis Degenerative disc disease, lumbar- Primary Lumbosacral radiculopathy at L5 documented in this encounter [facility]* Diagnosis Frequent infections- Primary Megaloblastic anemia due to vitamin B12 deficiency Other vitamin B12 deficiency anemia Elevated sed rate Elevated sedimentation rate Hypogammaglobulinemia (HCC) Hypogammaglobulinaemia, unspecified Bilateral leg weakness Other musculoskeletal symptoms referable to limbs Discoid lupus erythematosus Lupus erythematosus [facility] Diagnosis Well woman exam with routine gynecological exam Routine gynecological examination Breast cancer screening by mammogram Breast nodule Other (abnormal) findings on radiological examination of breast [facility] Diagnosis Megaloblastic anemia due to vitamin B12 deficiency- Primary Other vitamin B12 deficiency anemia Hypogammaglobulinemia (HCC) Hypogammaglobulinaemia, unspecified Positive blood cultures Bacteremia Malaise and fatigue Other malaise and fatigue SOB (shortness of breath) Shortness of breath [facility] Diagnosis Elevated sed rate- Primary Elevated sedimentation rate Megaloblastic anemia due to vitamin B12 deficiency Other vitamin B12 deficiency anemia Hypogammaglobulinemia (HCC) Hypogammaglobulinaemia, unspecified Frequent infections Bilateral leg weakness Other musculoskeletal symptoms referable to limbs Discoid lupus erythematosus Lupus erythematosus [facility] Diagnosis Diarrhea, unspecified type- Primary Abdominal pressure Abdominal pain, unspecified site [facility] Diagnosis Other iron deficiency anemia- Primary [facility] Diagnosis Other systemic lupus erythematosus with other organ involvement (HCC) [facility] Diagnosis Systemic lupus erythematosus with other organ involvement (HCC)- Primary [facility] [place] [facility] Diagnosis Systemic lupus erythematosus (CMS-HCC)- Primary Cold extremities Pain of lower extremity, unspecified laterality Rheumatoid arthritis, involving unspecified site, unspecified whether rheumatoid factor present (CMS-HCC) Current smoker Raynaud's disease without gangrene [facility] Diagnosis Systemic lupus erythematosus (CMS-HCC)- Primary Cold extremities Pain of lower extremity, unspecified laterality Rheumatoid arthritis, involving unspecified site, unspecified whether rheumatoid factor present (CMS-HCC) Current smoker Raynaud's disease without gangrene Peripheral vascular disease, unspecified ([facility]-HCC)- Primary Peripheral vascular disease, unspecified Cold extremities Systemic lupus erythematosus ([facility]-HCC) [facility] Diagnosis Other systemic lupus erythematosus with other organ involvement (HCC)- Primary Vitamin D deficiency Unspecified vitamin D deficiency Elevated LFTs Other abnormal blood chemistry Anemia of chronic disease Anemia of other chronic disease Elevated sed rate Elevated sedimentation rate Elevated C-reactive protein (CRP) [facility] [place] [facility] Diagnosis Onset Date Resolution Status Admit Date Lumbosacral spondylosis acuteFebruary 2024 3:16pmOther chronic painacuteFebruary 2024 3:16pm SacroiliitisacuteFebruary 2024 3:16pm [facility] Work Phone: Evaluation note* Diagnosis Elevated sed rate- Primary Elevated sedimentation rate Megaloblastic anemia due to vitamin B12 deficiency Other vitamin B12 deficiency anemia Frequent infections Hypogammaglobulinemia (HCC) Hypogammaglobulinaemia, unspecified Bilateral leg weakness Other musculoskeletal symptoms referable to limbs Discoid lupus erythematosus Lupus erythematosus [facility] Diagnosis LPRD (laryngopharyngeal reflux disease) Other diseases of larynx Dry mouth Disturbance of salivary secretion Current smoker Tobacco use disorder Abnormal mouth sensation Other and unspecified diseases of the oral soft tissues [facility] [place] [facility]* Diagnosis Nipple discharge- [...] behavior of skin documented in this encounter [facility]* Diagnosis Sinus tachycardia- Primary Other specified cardiac dysrhythmias Shortness of breath Paroxysmal supraventricular tachycardia (CMS-HCC) Paroxysmal supraventricular tachycardia Essential hypertension Unspecified essential hypertension Obstructive sleep apnea syndrome Obstructive sleep apnea (adult) (pediatric) Morbid obesity (Multi) Morbid obesity Current smoker documented in this encounter [facility] Work Phone: Evaluation note* Diagnosis Elevated sed rate- Primary Elevated sedimentation rate Megaloblastic anemia due to vitamin B12 deficiency Other vitamin B12 deficiency anemia Frequent infections Hypogammaglobulinemia (HCC) Hypogammaglobulinaemia, unspecified Bilateral leg weakness Other musculoskeletal symptoms referable to limbs Discoid lupus erythematosus Lupus erythematosus [facility] Diagnosis Systemic lupus erythematosus with other organ involvement (HCC)- Primary [facility]* Diagnosis Vitamin B12 deficiency- Primary Other B-complex deficiencies Other iron deficiency anemia Hypogammaglobulinemia (HCC) Hypogammaglobulinaemia, unspecified [facility] Diagnosis Other systemic lupus erythematosus with other organ involvement (HCC) [facility] Diagnosis Thyroid nodule (CMS/HCC)- Primary Nontoxic uninodular goiter LPRD (laryngopharyngeal reflux disease) Acute laryngitis, without mention of obstruction documented in this encounter [facility]* Diagnosis Hypogammaglobulinemia (HCC)- Primary Hypogammaglobulinaemia, unspecified Vitamin B12 deficiency Other B-complex deficiencies Other iron deficiency anemia Megaloblastic anemia due to vitamin B12 deficiency Other vitamin B12 deficiency anemia [facility] Diagnosis Frequent infections- Primary Hypogammaglobulinemia (HCC) Hypogammaglobulinaemia, unspecified Bilateral leg weakness Other musculoskeletal symptoms referable to limbs Discoid lupus erythematosus Lupus erythematosus Elevated sed rate Elevated sedimentation rate Megaloblastic anemia due to vitamin B12 deficiency Other vitamin B12 deficiency anemia [facility] Diagnosis Other systemic lupus erythematosus with other organ involvement (HCC)- Primary [facility]* Diagnosis Other systemic lupus erythematosus with other organ involvement (HCC) [facility] Diagnosis Systemic lupus erythematosus with other organ involvement (HCC)- Primary [facility]* Diagnosis Fibromyalgia- Primary Mylagia and myositis, unspecified Family history of disease of aorta Family history of cancer Family history of unspecified malignant neoplasm [facility] [place] [facility]* Diagnosis Frequent infections- [...] vitamin D deficiency [facility] [place] [facility]* Diagnosis Other systemic lupus erythematosus with other organ involvement (HCC)- Primary [facility]* Diagnosis Other systemic lupus erythematosus with other organ involvement (HCC)- Primary Elevated LFTs Other abnormal blood chemistry Anemia of chronic disease Anemia of other chronic disease Elevated sed rate Elevated sedimentation rate Elevated C-reactive protein (CRP) Vitamin B12 deficiency Other B-complex deficiencies Screening-pulmonary TB Screening examination for pulmonary tuberculosis Vitamin D deficiency Unspecified vitamin D deficiency [facility] Diagnosis Other systemic lupus erythematosus [...] both feet 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 Encounter for long-term (current) use of steroids Bilateral hand pain Pain in limb Family history of Crohn's disease Family history of other digestive disorders Raynaud's disease without gangrene Bilateral wrist pain 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, forearm [facility] [place] [facility]* Diagnosis Other systemic lupus erythematosus with other organ involvement (HCC)- Primary [facility] [place] [facility]* Diagnosis Generalized articular [...] diseases documented [facility] [place] [facility]* Diagnosis Elevated sed rate- Primary Elevated sedimentation rate Megaloblastic anemia due to vitamin B12 deficiency Other vitamin B12 deficiency anemia Frequent infections Hypogammaglobulinemia (HCC) Hypogammaglobulinaemia, unspecified Bilateral leg weakness Other musculoskeletal symptoms referable to limbs Discoid lupus erythematosus Lupus erythematosus documented [facility] [place] [facility]* Diagnosis Other systemic lupus erythematosus with other organ involvement (HCC)- Primary documented [facility] [place] [facility]* Diagnosis Hypogammaglobulinemia (HCC)- Primary Hypogammaglobulinaemia, unspecified documented [facility] [place] [facility]* Diagnosis Hidradenitis suppurativa- Primary Hidradenitis Pain Generalized pain Acne vulgaris Other acne [facility] [place] [facility] Diagnosis Hypogammaglobulinemia (HCC)- Primary Hypogammaglobulinaemia, unspecified Vitamin B12 deficiency Other B-complex deficiencies Other iron deficiency anemia Malaise and fatigue Other malaise and fatigue Shortness of breath Other specified disorders of breast Pre-diabetes Other abnormal glucose Gastro-esophageal reflux disease without esophagitis Esophageal reflux documented [facility] [place] [facility]* Diagnosis Elevated sed rate- Primary Elevated sedimentation rate Megaloblastic anemia due to vitamin B12 deficiency Other vitamin B12 deficiency anemia Frequent infections Hypogammaglobulinemia (HCC) Hypogammaglobulinaemia, unspecified Bilateral leg weakness Other musculoskeletal symptoms referable to limbs Discoid lupus erythematosus Lupus erythematosus documented [facility] [place] [facility]* Diagnosis Other systemic lupus erythematosus with other organ involvement (HCC)- Primary [facility] [place] [facility]* Diagnosis Other systemic [...] for pulmonary tuberculosis [facility] [place] [facility]* Diagnosis Other systemic lupus erythematosus with other organ involvement (HCC)- Primary Elevated LFTs Other abnormal blood chemistry Anemia of chronic disease Anemia of other chronic disease Elevated C-reactive protein (CRP) Elevated sed rate Elevated sedimentation rate Vitamin D deficiency Unspecified vitamin D deficiency documented [facility] [place] [facility]* Diagnosis Frequent infections- Primary Hypogammaglobulinemia (HCC) Hypogammaglobulinaemia, unspecified Bilateral leg weakness Other musculoskeletal symptoms referable to limbs Discoid lupus erythematosus Lupus erythematosus Elevated sed rate Elevated sedimentation rate Megaloblastic anemia due to vitamin B12 deficiency Other vitamin B12 deficiency anemia documented [facility] [place] [facility]* Diagnosis Pilonidal cyst- Primary Hidradenitis suppurativa Hidradenitis [facility] Diagnosis Pilonidal abscess- Primary Pilonidal cyst with abscess Pilonidal cyst documented in this encounter [facility]* Diagnosis Nipple discharge in female- Primary Other sign and symptom in breast Type 2 diabetes mellitus with other specified complication, unspecified whether correction insulin use Obesity with serious comorbidity in pediatric patient, unspecified obesity class, unspecified obesity type IgG deficiency Other selective immunoglobulin deficiencies Recurrent infections Unspecified infectious and parasitic diseases Pilonidal abscess Pilonidal cyst with abscess Tobacco use disorder [facility] Diagnosis Pilonidal abscess- Primary Pilonidal cyst with abscess documented in this encounter [facility] HealthcareHistory general Narrative - Reported* Type Description Date Medical History hyperlipidemia Medical Historyinsulin resistanceMedical HistoryCMVSurgical Historycyst removal pilonidalSurgical HistoryD&CHospitalization Historypregnancy Planitax Other Hospital Discharge instructionsAmbulatory Orders* Referral to Gastroenterology Location: None [facility] Work Phone: Hospital Discharge instructions Additional Instructions Dressing changes to sacral region daily: Remove packing, irrigate with saline, repack with saline moistened 2 x 2 gauze and cover with dry dressingT[facility]awas [facility] Work Phone: InstructionsNot on filedocumented in this encounter [facility] (narrative)* Diagnostic Procedure Only (Routine) - Pending ReviewSpecialtyDiagnoses / ProceduresReferred By ContactReferred To ContactXR IMAGING Diagnoses Steroid-induced osteoporosis Procedures DXA-FOREARM SKELETON DXA BONE DENSITY STUDY /SITES APPENDICLR Lynne Perera MD [address] [place] [address] [place] [address] Referral IDStatusReasonStart DateExpiration DateVisits RequestedVisits [id number] Review Auto-Generated Referral [facility] for referral (narrative)* Consultation (Routine) - AuthorizedSpecialtyDiagnoses / ProceduresReferred By ContactReferred To ContactCardiology Diagnoses Irregular heart rate Essential hypertension Autonomic dysfunction Obstructive sleep apnea syndrome Primary hypertension Procedures Follow Up In Cardiology Michelle Jasmine APRN-CNP [address] [facility] [address] [place] [address] Aurora Patel MD [address] [address] Referral IDStatusReasonStart DateExpiration DateVisits RequestedVisits [id number]/17/20241/16/202511 * Cardiovascular (Routine) - Pending ReviewSpecialtyDiagnoses / Procedures Referred By ContactReferred To ContactCardiology Diagnoses Irregular heart rate Procedures 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 Michelle Jasmine APRN-CNP [address] [place] [address] Referral IDStatusReasonStart DateExpiration DateVisits RequestedVisits [id number] Review * CV Imaging (Routine) - Pending ReviewSpecialtyDiagnoses / ProceduresReferred By ContactReferred To ContactCardiology Diagnoses Irregular heart rate Obstructive sleep apnea syndrome Procedures Transthoracic Echo (TTE) Complete CT ECHO TTHRC R-T 2D W/WOM-MODE COMPL SPEC&COLR D Michelle Jasmine, [facility] [address] [facility] [address] [place] [address] Referral IDStatusReasonStart DateExpiration DateVisits RequestedVisits [id number] Review Perform Procedure * Cardiovascular (Routine) - AuthorizedSpecialtyDiagnoses / ProceduresReferred By ContactReferred To Contact Diagnoses Irregular heart rate Procedures ECG 12 Lead Michelle Jasmine [facility]NMED[facility] [address] [facility] [address] [place] [address] Referral IDStatusReasonStart DateExpiration DateVisits RequestedVisits [id number]/17/20241/16/202511 [facility] Work Phone: Reason for referral (narrative)* Consultation (Routine) - Pending ReviewSpecialtyDiagnoses / ProceduresReferred By Contact Referred To ContactPain Medicine Diagnoses Lumbosacral radiculopathy at L5 Degenerative disc disease, lumbar Procedures CT OFFICE/OUTPATIENT [facility] 60 MINUTES Kade Early MD [address] [address] Adolfo Kang MD [address] [address] Referral IDStatusReasonStart DateExpiration DateVisits RequestedVisits [id number] Review Specialty Services Required [facility] CenterReason for referral (narrative)No reason for referral information availableK[facility] Work Phone: Reason for visit Narrative* [place] Prior Authorization (Routine) - AuthorizedSpecialtyDiagnoses / ProceduresReferred By Contact Referred To Contact Diagnoses Frequent infections Hypogammaglobulinemia (HCC) Bilateral leg weakness Discoid lupus erythematosus Procedures GAMMAGARD LIQUID INJECTION Vera Najera MD [address] [place] [address] [place] [address] Phone: tel: fax: Hematology/Oncology [address] [place] [address] [place] [address] Phone: tel: fax: Referral IDStatusReasonStart DateExpiration DateVisits RequestedVisits [id number]/11/20245/ [facility] for visit Narrative* [place] Prior Authorization (Routine) - AuthorizedSpecialtyDiagnoses / ProceduresReferred By ContactReferred To Contact Diagnoses Other systemic lupus erythematosus with other organ involvement (HCC) Procedures BELIMUMAB INJECTION Lynne Ni MD [address] [place] [address] Phone: tel: fax: Lynne Ni MD [address] [place] [address] Phone: tel: fax: Referral IDStatusReasonStart DateExpiration DateVisits RequestedVisits [id number]/18/202510/ [facility] for visit Narrative* [place] Prior Authorization (Routine) - AuthorizedSpecialtyDiagnoses / ProceduresReferred By ContactReferred To Contact Diagnoses Other iron deficiency anemia Procedures IRON SUCROSE INJECTION PER 1 MG Vaibhav Carvalho APRN.SINGLE POINTED OPERATOR [address] [place] [address] [place] [address] Phone: tel: fax: Hematology/Oncology [address] [place] [address] Phone: tel: fax: Referral IDStatusReasonStart DateExpiration DateVisits RequestedVisits [id number]/24/202512/31/20259999 [facility] for visit Narrative* [place] Prior Authorization (Routine) - AuthorizedSpecialtyDiagnoses / ProceduresReferred By ContactReferred To Contact Diagnoses Frequent infections Hypogammaglobulinemia (HCC) Bilateral leg weakness Discoid lupus erythematosus Procedures GAMMAGARD LIQUID INJECTION Vera Najera MD [address] [place] [place] [address] Phone: tel: fax: Hematology/Oncology [address] [place] [address] [address] [place] [id number] Phone: tel: fax: Referral IDStatusReasonStart DateExpiration DateVisits RequestedVisits [id number] Patient Cleared - Admin/Director Of Sales And Marketing/Director advise to proceed or did not respond / [facility] for visit Narrative* [place] Prior Authorization (Routine) - AuthorizedSpecialtyDiagnoses / ProceduresReferred By ContactReferred To Contact Diagnoses Frequent infections Hypogammaglobulinemia (HCC) Bilateral leg weakness Discoid lupus erythematosus Procedures GAMMAGARD LIQUID INJECTION Vera Najera MD [address] [place] [address] Phone: tel: fax: Hematology/Oncology [address] [place] [address] [place] [address] Phone: tel: fax: Referral IDStatusReasonStart DateExpiration DateVisits RequestedVisits [id number] Patient Cleared - Admin/Director Of Sales And Marketing/Director advise to proceed or did not respond [facility] N[facility]* [place] Prior Authorization (Routine) - AuthorizedSpecialtyDiagnoses / ProceduresReferred By ContactReferred To Contact Diagnoses Frequent infections Hypogammaglobulinemia (HCC) Bilateral leg weakness Discoid lupus erythematosus Procedures GAMMAGARD LIQUID INJECTION IMMUNE GLOBULIN INJECTION Vera Najera MD [address] [place] [place] [address] Phone: tel: fax: Hematology/Oncology [address] [place] [address] [place] [address] Phone: tel: fax: Referral IDStatusReasonStart DateExpiration DateVisits RequestedVisits [id number] Patient Cleared - Admin/Director Of Sales And Marketing/Director advise to proceed or did not respond [facility] Summary Purpose Family History No Family History [...] cultures Procedures CONSULT TO INFECTIOUS DISEASES OFFICE/OUTPATIENT [facility] HIGH MDM 60 MINUTES Vaibhav Carvalho APRN.SINGLE POINTED OPERATOR [address] [place] [place] [address] Referral IDStatusReasonStanguilla DateExpiration DateVisits RequestedVisits [id number] PCP Requested Referral [id number] / ProceduresReferred By ContactReferred To Contact Diagnoses Paroxysmal supraventricular tachycardia PAC (premature atrial contraction) Procedures ECG 12 Lead Lois Holm MD [address] [place] [address] [address] [place] [address] Referral IDStatusReasonStanguilla DateExpiration DateVisits RequestedVisits [id number]/20/20242/19/465255QvzdzntjpQdpvdtzlp / Procedures Referred By ContactReferred To ContactCardiology Diagnoses Shortness of breath Paroxysmal supraventricular tachycardia PAC (premature atrial contraction) Procedures Follow Up In Cardiology Lois Holm MD [address] [facility] [address], [address] [place] [address] Lois Holm MD [address] [place] [address] [address], [address] [place] [address] Referral IDStatusReM[facility] DateExpiration DateVisits RequestedVisits [id number]/20/20242/19/535362ZbyvacfcrUtlhqrlva / Procedures Referred By ContactReferred To Contact Diagnoses Obesity, Class III, BMI 40-49.9 (morbid obesity) (HCC) Pre-diabetes Christie Phan MD [address] [place] [address] Referral IDStatusRewashington university medical centerStanguilla DateExpiration DateVisits RequestedVisits [id number] / ProceduresReferred By Contact Referred To Contact Diagnoses Wound healing, delayed Procedures CONSULT TO MEDICAL GENETICS - GENERAL OFFICE/OUTPATIENT [facility] 60-74 MINUTES MEDICAL GENETICS COUNSELING EACH 30 MINUTES Misty Nelson MD [facility] [place] [address] [facility] [place] [address] Referral IDStatusReasonStart DateExpiration DateVisits RequestedVisits [id number] PCP Requested Referral Auto-Generated Referral [id number] / ProceduresReferred By ContactReferred To ContactNeurology Diagnoses POTS (postural orthostatic tachycardia syndrome) Procedures CONSULT TO NEUROLOGY OFFICE/OUTPATIENT [facility] 60-74 MINUTES Christie Phan MD [address] [place] [address] Referral IDStatusReasonStart DateExpiration DateVisits RequestedVisits [id number] PCP Requested Referral [id number] / ProceduresReferred By ContactReferred To ContactImmunology Diagnoses Raised level of immunoglobulins Procedures CONSULT TO IMMUNOLOGY OFFICE/OUTPATIENT [facility] 60-74 MINUTES Christie Phan MD [address] [place] [address] Referral IDStatusReasonDunnellon DateExpiration DateVisits RequestedVisits [id number] PCP Requested Referral [id number] / ProceduresReferred By ContactReferred To ContactNEUROLOGICAL INSTITUTE Diagnoses Somnolence, daytime Snoring Procedures HOME SLEEP APNEA TEST (HSAT) SLEEP STD AIRFLOW HRT RATE&O2 SAT EFFORT UNATT Christie Phan MD [address] [place] [address] [place] [address] Referral IDStatusReasonart DateExpiration DateVisits RequestedVisits [id number] Auto-Generated Referral [id number] / ProceduresReferred By ContactReferred To Contact Diagnoses Somnolence, daytime Chronic fatigue and malaise Obesity, unspecified classification, unspecified obesity type, unspecified whether serious comorbidity present Procedures CONSULT TO LIFESTYLE MEDICINE MD OFFICE/OUTPATIENT [facility] MDM 60-74 MINUTES Vera Najera MD [address] [place] [address] Referral IDStatusReasonStanguilla DateExpiration DateVisits RequestedVisits [id number] PCP Requested Referral [id number] / ProceduresReferred By ContactReferred To Contact Diagnoses Somnolence, daytime Snoring Procedures CONSULT TO SLEEP MEDICINE - ADULT OFFICE/OUTPATIENT [facility] MDM 60-74 MINUTES Vera Najera MD [address] [place] [address] Referral IDStatusReasonStanguilla DateExpiration DateVisits RequestedVisits [id number] PCP Requested Referral Medications Administered Section Medication [...] section and content) DATE CREATED AUTHOR 09/20/2018 [facility] DATE CREATED AUTHOR AUTHOR'S ORGANIZ ATION 12/10/2018 [facility] DATE CREATED AUTHOR AUTHOR'S ORGANIZ ATION 01/13/2019 [facility] DATE CREATED AUTHOR AUTHOR'S ORGANIZ ATION 06/28/2021 [facility] DATE CREATED AUTHOR AUTHOR'S ORGANIZ ATION 10/01/2022 [facility] DATE CREATED AUTHOR AUTHOR'S ORGANIZ ATION 03/10/2024 [facility] DATE CREATED AUTHOR AUTHOR'S ORGANIZ ATION 07/22/2024 [facility] DATE CREATED AUTHOR AUTHOR'S ORGANIZ ATION 07/28/2024 [facility] DATE CREATED AUTHOR AUTHOR'S ORGANIZ ATION 03/14/2025 [facility] DATE CREATED AUTHOR AUTHOR'S ORGANIZ ATION 03/18/2025 [facility] DATE CREATED AUTHOR AUTHOR'S ORGANIZ ATION 03/23/2025 [facility] DATE CREATED AUTHOR AUTHOR'S ORGANIZ ATION 03/24/2025 [facility] EPIC Reason for Visit (unrecogniz ed section and content) ReasonCommentsInfection Follow UpSpecialtyDiagnoses / ProceduresReferred By ContactReferred To ContactInfectious Diseases Diagnoses Positive blood cultures Procedures CONSULT TO INFECTIOUS DISEASES OFFICE/OUTPATIENT [facility] 60 MINUTES Vaibhav Carvalho APRN.[address] [place] [address] Phone: tel: fax: Referral IDStatusReasonStart DateExpiration DateVisits RequestedVisits [id number] PCP Requested Referral /[id number]oqcule / ProceduresReferred By ContactReferred To Contact [facility] ReasonCommentsPainongoing generalized pain.ReasonCommentsNewReasonCommentsOpened In ErrorReasonCommentsResultsReasonCommentsAbnormal labsNew patient consult ReasonCommentsNew PatientVirtual visitSpecialtyDiagnoses / ProceduresReferred By ContactReferred To Contact Diagnoses Somnolence, daytime Chronic fatigue and malaise Obesity, unspecified classification, unspecified obesity type, unspecified whether serious comorbidity present Procedures CONSULT TO LIFESTYLE MEDICINE MD OFFICE/OUTPATIENT [facility] 60-74 MINUTES Vera Najera MD [address] [place] [address] [place] [address] Referral IDStatusReasonStart DateExpiration DateVisits RequestedVisits [id number] PCP Requested Referral [id number] Total serum IgMAnemiaReasonComments ConsultSpecialtyDiagnoses / ProceduresReferred By ContactReferred To Contact Immunology Diagnoses Raised level of immunoglobulins Procedures CONSULT TO IMMUNOLOGY OFFICE/OUTPATIENT [facility] 60-74 MINUTES Christie Phan MD [address] [address] Referral IDStatusReasonStanguilla DateExpiration DateVisits RequestedVisits [id number] PCP Requested Referral [id number]lqcbpOpyvzwfgLkuumf RequestReason CommentsAppointmentCare Coordinator - OtherReasonCommentsFuture Appointment Scheduling questions/concernsReasonCommentsPAP Therapy Follow UpReasonComments PAP Rx FaxedDME [facility] [place]ReasonCommentsAnemia8 week follow upReason CommentsOrdersLab Orders Before AppointmentReasonCommentsSleep Apnea ReasonCommentsAnemiaReasonCommentsPainWeight ManagementReasonCommentsReason CommentsCare CoordinationappointmentReasonCommentsEstablished PatientReason CommentsAppointmentReasonCommentsFollow UpReasonOnset DateCommentsRefill Request 12/24/2022ReasonCommentsSLEReasonOnset DateCommentsSPP Inflammatory Conditions - Treatment Pkiaszxu49/14/2023enlystaInsurance Bodsczparhqha44/14/2023A submission pendingReasonCommentsAppointmentOrdersMedication AuthorizationReason CommentsResultsEye ExamReasonCommentsAllied Health VisitBenlysta teachingReason CommentsCMNReasonCommentsEstablished Patient Follow-UpReasonCommentsWeight ManagementReasonCommentsNew Patient VisitHEART RATE/ BPSpecialtyDiagnoses / ProceduresReferred By ContactReferred To Contact Diagnoses Irregular heart rate Procedures ECG 12 Lead Michelle Jasmine, CLOTH DYEING RANGE TENDER-SINGLE POINTED OPERATOR [address] [facility] [address] [place] [address] Referral IDStatusReasonStart DateExpiration DateVisits RequestedVisits [id number]/17/20241/[id number] Patient Visit Leg Swelling, [facility]ialtyDiagnoses / ProceduresReferred By ContactReferred To Contact Diagnoses Paroxysmal supraventricular tachycardia PAC (premature atrial contraction) Procedures ECG 12 Lead Lois Holm MD [address] [facility] [address] [place] [address] Referral IDStatusReasonStart DateExpiration DateVisits RequestedVisits [id number]/20/20242/[id number] DateCommentsSPP Inflammatory Conditions - Medication Fstxts4707/13/2023enlystaReasonOnset Date CommentsSPP Inflammatory Conditions - Medication Lksifz4108/12/2023enlystaReason Onset DateCommentsSPP Inflammatory Conditions - Medication Weldzr3109/13/2023 BenlystaReasonCommentsSLEReasonOnset DateCommentsSPP Inflammatory Conditions - Medication Wluepc0710/12/2023enlystaReasonOnset DateCommentsRefill Request 4ReasonOnset DateCommentsSPP Inflammatory Conditions - Medication Jxlfhp164Benlysta - NCA 09/2024ReasonOnset DateCommentsSPP Inflammatory Conditions - Medication Zhgssq9112/13/2023enlysta - NCA 09/2024ReasonOnset Date CommentsSPP Inflammatory Conditions - Medication Wmcdvx0801/18/2024enlystaReason Onset DateCommentsSPP Inflammatory Conditions - Medication Ftezpb9602/14/2024 Benlysta - NCA 5/2025ReasonOnset DateCommentsSPP Inflammatory Conditions - Follow-up4BenlystaInsurance Ppzalsajlnezp98/23/2024PA Renewal Submitted ReasonCommentsOrdersPAP RX.ReasonCommentsCare Coordinator - OtherEds scheduling ReasonCommentsMed Change RequestReasonCommentscmnReasonOnset DateCommentsSPP Inflammatory Conditions - Medication Qazmqc134Benlysta - NCA 09/2024Reason CommentsBreast ProblemReasonCommentsVaginal BleedingPt present today for bleeding when she wipes.ReasonOnset DateCommentsSPP Inflammatory Conditions - Medication Whllza3804/11/2024enlystaReasonCommentsEar ProblemPossible thrush, ear painReasonCommentsMed RefillReasonOnset DateCommentsSPP Inflammatory Conditions - Medication Wwfogb8805/12/2024enlystaSpecialtyDiagnoses / ProceduresReferred By ContactReferred To Contact Diagnoses Frequent infections Hypogammaglobulinemia (HCC) Bilateral leg weakness Discoid lupus erythematosus Procedures GAMMAGARD LIQUID INJECTION Vera Najera MD [address] [place] [address] [place] [address] [facility] [address] [place] [address] Referral IDStatusReasonStart DateExpiration DateVisits RequestedVisits [id number]/11/20245/11/[id number] Women Visit ReasonOnset DateCommentsSPP Inflammatory Conditions - Medication Refill 5BenlystaReasonCommentsLab OrdersReasonCommentsArt TherapyReason CommentsAnemiaReasonCommentsBreath Hydrogen TestSIBO Breath TestReasonOnset Date CommentsSPP Inflammatory Conditions - Medication Ymuxjc3806/29/2024enlystaReason Commentsposs raynaudsSpecialtyDiagnoses / ProceduresReferred By ContactReferred To ContactVascular Surgery Diagnoses Cold extremities Pain of lower extremity, unspecified laterality Gay De La Torre, CLOTH DYEING RANGE TENDER-SINGLE POINTED OPERATOR [address] [facility], [place] [address] Phone: tel: fax: Hayden Arciniega MD [address] [place] [address] Phone: tel:[phone] fax: Referral IDStatusReasonStart DateExpiration DateVisits RequestedVisits [id number] Review Specialty Services Required [id number]/Lip ProblemSince OctoberReasonOnset DateCommentsSPP Inflammatory Conditions - Medication Eubpju6607/25/2024enlysta ReasonCommentsFollow-upSkin CheckReasonCommentsAnnual ExamSpecialtyDiagnoses / ProceduresReferred By ContactReferred To ContactCardiology Diagnoses Shortness of breath Paroxysmal supraventricular tachycardia (CMS-HCC) PAC (premature atrial contraction) Procedures Follow Up In Cardiology Lois Holm MD [address] [place] [address], [address] [address] Phone: tel: fax: Lois Holm MD [address] [place] [address] [address], [address] [address] Phone: tel: fax: Referral IDStatusReasonStart DateExpiration DateVisits RequestedVisits [id number]/20/20242/19/[id number] Change Request ReasonCommentsPatient QuestionReasonOnset DateCommentsSPP Inflammatory Conditions - Medication Uhpdst985BenlystaReasonOnset DateCommentsRefill Snitxmu9809/01/2024ReasonCommentsThyroid NoduleFollow up ultrasound [facility] 08/24/24 ReasonCommentsMegaloblastic anemia due to vitamin B12 deficiencyTreatment visit ReasonOnset BuutObqklabfKfhjpth25/17/2025ReasonCommentsMedication PreauthorizationAppointmentReasonCommentsFuture AppointmentReasonOnset Date CommentsSPP Inflammatory Conditions - Medication Sgdeim6509/20/2024enlystaReason CommentsJoint PainReasonCommentsPatient UpdateAppointmentReasonCommentsSLE OsteoarthritisReasonCommentsConsulthypermobilitySpecialtyDiagnoses / Procedures Referred By ContactReferred To ContactGenetics / MEDICAL GENETICS Diagnoses hEDS with concerns and wants CTD evaluation Procedures EST PATIENT Self Ny Lance MD [address] [address] Phone: tel: fax: Referral IDStatusReasonStart DateExpiration DateVisits RequestedVisits [id number] Review/[id number]-hl ReasonCommentsHypogammagloblinemiaMegablastic anemiaOTVReasonOnset DateComments Rsujmyp4111/30/2024ReasonCommentsFollow-upSuspicious Skin LesionReasonComments ConsultPilonidal cyst- Pt had a pilonidal cyst and sinus removal about 15 yrs ago- [facility] did procedure. Everything went well and was doing fine until about 2-3 weeks ago.SpecialtyDiagnoses / ProceduresReferred By ContactReferred To Contact General Surgery Diagnoses Pilonidal cyst Procedures CT OFFICE/OUTPATIENT NEW HIGH MDM 60 MINUTES Bernabe English MD [address] [facility] [address] [place] [address] Phone: tel: fax: Terence Blum MD [address] [facility] [address] [place] [address] Phone: tel: fax: Referral IDStatusReasonStart DateExpiration DateVisits RequestedVisits [id number] Specialty Services Required /[id number] PatientPilonidal cyst with abscessReferral from Dr. Gay De La Torre- [facility]. Patient denies fever, nausea, vomiting or diarrheaNo current complaints of SOB, cough or congestionReason Tkwehnfi5rf po I&D of pilonidal cyst Ordered Prescriptions [...] any alcohol or drug abuse patient.[facility]imaIn the event this information is protected by the Federal Confidentiality of Alcohol and Drug Abuse Patient Records regulations: The Federal rules restrict any use of the information to criminally investigate or prosecute any alcohol or drug abuse patient.[facility]imaIn the event this information is protected by the Federal Confidentiality of Alcohol and Drug Abuse Patient Records regulations: The Federal rules restrict any use of the information to criminally investigate or prosecute any alcohol or drug abuse patient.[facility]imaIn the event this information is protected by the Federal Confidentiality of Alcohol and Drug Abuse Patient Records regulations: The Federal rules restrict any use of the information to criminally investigate or prosecute any alcohol or drug abuse patient.[facility]imaIn the event this information is protected by the Federal Confidentiality of Alcohol and Drug Abuse Patient Records regulations: The Federal rules restrict any use of the information to criminally investigate or prosecute any alcohol or drug abuse patient.[facility]imaIn the event this information is protected by the Federal Confidentiality of Alcohol and Drug Abuse Patient Records regulations: The Federal rules restrict any use of the information to criminally investigate or prosecute any alcohol or drug abuse patient.[facility]imaIn the event this information is protected by the Federal Confidentiality of Alcohol and Drug Abuse Patient Records regulations: The Federal rules restrict any use of the information to criminally investigate or prosecute any alcohol or drug abuse patient.[facility]imaIn the event this information is protected by the Federal Confidentiality of Alcohol and Drug Abuse Patient Records regulations: The Federal rules restrict any use of the information to criminally investigate or prosecute any alcohol or drug abuse patient.[facility]imaIn the event this information is protected by the Federal Confidentiality of Alcohol and Drug Abuse Patient Records regulations: The Federal rules restrict any use of the information to criminally investigate or prosecute any alcohol or drug abuse patient.[facility]imaIn the event this information is protected by the Federal Confidentiality of Alcohol and Drug Abuse Patient Records regulations: The Federal rules restrict any use of the information to criminally investigate or prosecute any alcohol or drug abuse patient.[facility]imaIn the event this information is protected by the Federal Confidentiality of Alcohol and Drug Abuse Patient Records regulations: The Federal rules restrict any use of the information to criminally investigate or prosecute any alcohol or drug abuse patient.[facility]imaIn the event this information is protected by the Federal Confidentiality of Alcohol and Drug Abuse Patient Records regulations: The Federal rules restrict any use of the information to criminally investigate or prosecute any alcohol or drug abuse patient.[facility]imaIn the event this information is protected by the Federal Confidentiality of Alcohol and Drug Abuse Patient Records regulations: The Federal rules restrict any use of the information to criminally investigate or prosecute any alcohol or drug abuse patient.[facility]imaIn the event this information is protected by the Federal Confidentiality of Alcohol and Drug Abuse Patient Records regulations: The Federal rules restrict any use of the information to criminally investigate or prosecute any alcohol or drug abuse patient.[facility]imaIn the event this information is protected by the Federal Confidentiality of Alcohol and Drug Abuse Patient Records regulations: The Federal rules restrict any use of the information to criminally investigate or prosecute any alcohol or drug abuse patient.[facility]imaIn the event this information is protected by the Federal Confidentiality of Alcohol and Drug Abuse Patient Records regulations: The Federal rules restrict any use of the information to criminally investigate or prosecute any alcohol or drug abuse patient.[facility]imaIn the event this information is protected by the Federal Confidentiality of Alcohol and Drug Abuse Patient Records regulations: The Federal rules restrict any use of the information to criminally investigate or prosecute any alcohol or drug abuse patient.[facility]imaIn the event this information is protected by the Federal Confidentiality of Alcohol and Drug Abuse Patient Records regulations: The Federal rules restrict any use of the information to criminally investigate or prosecute any alcohol or drug abuse patient.[facility]imaIn the event this information is protected by the Federal Confidentiality of Alcohol and Drug Abuse Patient Records regulations: The Federal rules restrict any use of the information to criminally investigate or prosecute any alcohol or drug abuse patient.[facility]imaIn the event this information is protected by the Federal Confidentiality of Alcohol and Drug Abuse Patient Records regulations: The Federal rules restrict any use of the information to criminally investigate or prosecute any alcohol or drug abuse patient.[facility]imaIn the event this information is protected by the Federal Confidentiality of Alcohol and Drug Abuse Patient Records regulations: The Federal rules restrict any use of the information to criminally investigate or prosecute any alcohol or drug abuse patient.[facility]imaIn the event this information is protected by the Federal Confidentiality of Alcohol and Drug Abuse Patient Records regulations: The Federal rules restrict any use of the information to criminally investigate or prosecute any alcohol or drug abuse patient.[facility]imaIn the event this information is protected by the Federal Confidentiality of Alcohol and Drug Abuse Patient Records regulations: The Federal rules restrict any use of the information to criminally investigate or prosecute any alcohol or drug abuse patient.[facility]imaIn the event this information is protected by the Federal Confidentiality of Alcohol and Drug Abuse Patient Records regulations: The Federal rules restrict any use of the information to criminally investigate or prosecute any alcohol or drug abuse patient.[facility]imaIn the event this information is protected by the Federal Confidentiality of Alcohol and Drug Abuse Patient Records regulations: The Federal rules restrict any use of the information to criminally investigate or prosecute any alcohol or drug abuse patient.[facility]imaIn the event this information is protected by the Federal Confidentiality of Alcohol and Drug Abuse Patient Records regulations: The Federal rules restrict any use of the information to criminally investigate or prosecute any alcohol or drug abuse patient.[facility]imaIn the event this information is protected by the Federal Confidentiality of Alcohol and Drug Abuse Patient Records regulations: The Federal rules restrict any use of the information to criminally investigate or prosecute any alcohol or drug abuse patient.[facility]imaIn the event this information is protected by the Federal Confidentiality of Alcohol and Drug Abuse Patient Records regulations: The Federal rules restrict any use of the information to criminally investigate or prosecute any alcohol or drug abuse patient.[facility]imaIn the event this information is protected by the Federal Confidentiality of Alcohol and Drug Abuse Patient Records regulations: The Federal rules restrict any use of the information to criminally investigate or prosecute any alcohol or drug abuse patient.[facility]imaIn the event this information is protected by the Federal Confidentiality of Alcohol and Drug Abuse Patient Records regulations: The Federal rules restrict any use of the information to criminally investigate or prosecute any alcohol or drug abuse patient.[facility]imaIn the event this information is protected by the Federal Confidentiality of Alcohol and Drug Abuse Patient Records regulations: The Federal rules restrict any use of the information to criminally investigate or prosecute any alcohol or drug abuse patient.[facility]imaIn the event this information is protected by the Federal Confidentiality of Alcohol and Drug Abuse Patient Records regulations: The Federal rules restrict any use of the information to criminally investigate or prosecute any alcohol or drug abuse patient.[facility]imaIn the event this information is protected by the Federal Confidentiality of Alcohol and Drug Abuse Patient Records regulations: The Federal rules restrict any use of the information to criminally investigate or prosecute any alcohol or drug abuse patient.[facility]imaIn the event this information is protected by the Federal Confidentiality of Alcohol and Drug Abuse Patient Records regulations: The Federal rules restrict any use of the information to criminally investigate or prosecute any alcohol or drug abuse patient.[facility]imaIn the event this information is protected by the Federal Confidentiality of Alcohol and Drug Abuse Patient Records regulations: The Federal rules restrict any use of the information to criminally investigate or prosecute any alcohol or drug abuse patient.[facility]imaIn the event this information is protected by the Federal Confidentiality of Alcohol and Drug Abuse Patient Records regulations: The Federal rules restrict any use of the information to criminally investigate or prosecute any alcohol or drug abuse patient.[facility]imaIn the event this information is protected by the Federal Confidentiality of Alcohol and Drug Abuse Patient Records regulations: The Federal rules restrict any use of the information to criminally investigate or prosecute any alcohol or drug abuse patient.[facility]imaIn the event this information is protected by the Federal Confidentiality of Alcohol and Drug Abuse Patient Records regulations: The Federal rules restrict any use of the information to criminally investigate or prosecute any alcohol or drug abuse patient.[facility]imaIn the event this information is protected by the Federal Confidentiality of Alcohol and Drug Abuse Patient Records regulations: The Federal rules restrict any use of the information to criminally investigate or prosecute any alcohol or drug abuse patient.[facility]imaIn the event this information is protected by the Federal Confidentiality of Alcohol and Drug Abuse Patient Records regulations: The Federal rules restrict any use of the information to criminally investigate or prosecute any alcohol or drug abuse patient.[facility]imaIn the event this information is protected by the Federal Confidentiality of Alcohol and Drug Abuse Patient Records regulations: The Federal rules restrict any use of the information to criminally investigate or prosecute any alcohol or drug abuse patient.[facility]imaIn the event this information is protected by the Federal Confidentiality of Alcohol and Drug Abuse Patient Records regulations: The Federal rules restrict any use of the information to criminally investigate or prosecute any alcohol or drug abuse patient.[facility]imaIn the event this information is protected by the Federal Confidentiality of Alcohol and Drug Abuse Patient Records regulations: The Federal rules restrict any use of the information to criminally investigate or prosecute any alcohol or drug abuse patient.[facility]imaIn the event this information is protected by the Federal Confidentiality of Alcohol and Drug Abuse Patient Records regulations: The Federal rules restrict any use of the information to criminally investigate or prosecute any alcohol or drug abuse patient.[facility]imaIn the event this information is protected by the Federal Confidentiality of Alcohol and Drug Abuse Patient Records regulations: The Federal rules restrict any use of the information to criminally investigate or prosecute any alcohol or drug abuse patient.[facility]imaIn the event this information is protected by the Federal Confidentiality of Alcohol and Drug Abuse Patient Records regulations: The Federal rules restrict any use of the information to criminally investigate or prosecute any alcohol or drug abuse patient.[facility]imaIn the event this information is protected by the Federal Confidentiality of Alcohol and Drug Abuse Patient Records regulations: The Federal rules restrict any use of the information to criminally investigate or prosecute any alcohol or drug abuse patient.[facility]imaIn the event this information is protected by the Federal Confidentiality of Alcohol and Drug Abuse Patient Records regulations: The Federal rules restrict any use of the information to criminally investigate or prosecute any alcohol or drug abuse patient.[facility]imaIn the event this information is protected by the Federal Confidentiality of Alcohol and Drug Abuse Patient Records regulations: The Federal rules restrict any use of the information to criminally investigate or prosecute any alcohol or drug abuse patient.[facility]imaIn the event this information is protected by the Federal Confidentiality of Alcohol and Drug Abuse Patient Records regulations: The Federal rules restrict any use of the information to criminally investigate or prosecute any alcohol or drug abuse patient.[facility]imaIn the event this information is protected by the Federal Confidentiality of Alcohol and Drug Abuse Patient Records regulations: The Federal rules restrict any use of the information to criminally investigate or prosecute any alcohol or drug abuse patient.[facility]imaIn the event this information is protected by the Federal Confidentiality of Alcohol and Drug Abuse Patient Records regulations: The Federal rules restrict any use of the information to criminally investigate or prosecute any alcohol or drug abuse patient.[facility]imaIn the event this information is protected by the Federal Confidentiality of Alcohol and Drug Abuse Patient Records regulations: The Federal rules restrict any use of the information to criminally investigate or prosecute any alcohol or drug abuse patient.[facility]imaIn the event this information is protected by the Federal Confidentiality of Alcohol and Drug Abuse Patient Records regulations: The Federal rules restrict any use of the information to criminally investigate or prosecute any alcohol or drug abuse patient.[facility]In the event this information is protected by the Federal Confidentiality of Alcohol and Drug Abuse Patient Records regulations: The Federal rules restrict any use of the information to criminally investigate or prosecute any alcohol or drug abuse patient.[facility] [place]In the event this information is protected by the Federal Confidentiality of Alcohol and Drug Abuse Patient Records regulations: The Federal rules restrict any use of the information to criminally investigate or prosecute any alcohol or drug abuse patient.[facility] [place]In the event this information is protected by the Federal Confidentiality of Alcohol and Drug Abuse Patient Records regulations: The Federal rules restrict any use of the information to criminally investigate or prosecute any alcohol or drug abuse patient.[facility] [place]In the event this information is protected by the Federal Confidentiality of Alcohol and Drug Abuse Patient Records regulations: The Federal rules restrict any use of the information to criminally investigate or prosecute any alcohol or drug abuse patient.[facility]In the event this information is protected by the Federal Confidentiality of Alcohol and Drug Abuse Patient Records regulations: The Federal rules restrict any use of the information to criminally investigate or prosecute any alcohol or drug abuse patient.[facility]In the event this information is protected by the Federal Confidentiality of Alcohol and Drug Abuse Patient Records regulations: The Federal rules restrict any use of the information to criminally investigate or prosecute any alcohol or drug abuse patient.[facility] [place]In the event this information is protected by the Federal Confidentiality of Alcohol and Drug Abuse Patient Records regulations: The Federal rules restrict any use of the information to criminally investigate or prosecute any alcohol or drug abuse patient.[facility] [place]In the event this information is protected by the Federal Confidentiality of Alcohol and Drug Abuse Patient Records regulations: The Federal rules restrict any use of the information to criminally investigate or prosecute any alcohol or drug abuse patient.[facility] [place]In the event this information is protected by the Federal Confidentiality of Alcohol and Drug Abuse Patient Records regulations: The Federal rules restrict any use of the information to criminally investigate or prosecute any alcohol or drug abuse patient.[facility] [place]In the event this information is protected by the Federal Confidentiality of Alcohol and Drug Abuse Patient Records regulations: The Federal rules restrict any use of the information to criminally investigate or prosecute any alcohol or drug abuse patient.[facility] [place]In the event this information is protected by the Federal Confidentiality of Alcohol and Drug Abuse Patient Records regulations: The Federal rules restrict any use of the information to criminally investigate or prosecute any alcohol or drug abuse patient.[facility] [place]In the event this information is protected by the Federal Confidentiality of Alcohol and Drug Abuse Patient Records regulations: The Federal rules restrict any use of the information to criminally investigate or prosecute any alcohol or drug abuse patient.[facility] [place]In the event this information is protected by the Federal Confidentiality of Alcohol and Drug Abuse Patient Records regulations: The Federal rules restrict any use of the information to criminally investigate or prosecute any alcohol or drug abuse patient.[facility] [place]In the event this information is protected by the Federal Confidentiality of Alcohol and Drug Abuse Patient Records regulations: The Federal rules restrict any use of the information to criminally investigate or prosecute any alcohol or drug abuse patient.[facility] [place]In the event this information is protected by the Federal Confidentiality of Alcohol and Drug Abuse Patient Records regulations: The Federal rules restrict any use of the information to criminally investigate or prosecute any alcohol or drug abuse patient.[facility]In the event this information is protected by the Federal Confidentiality of Alcohol and Drug Abuse Patient Records regulations: The Federal rules restrict any use of the information to criminally investigate or prosecute any alcohol or drug abuse patient.[facility] [place]In the event this information is protected by the Federal Confidentiality of Alcohol and Drug Abuse Patient Records regulations: The Federal rules restrict any use of the information to criminally investigate or prosecute any alcohol or drug abuse patient.[facility] [place]In the event this information is protected by the Federal Confidentiality of Alcohol and Drug Abuse Patient Records regulations: The Federal rules restrict any use of the information to criminally investigate or prosecute any alcohol or drug abuse patient.[facility] [place]In the event this information is protected by the Federal Confidentiality of Alcohol and Drug Abuse Patient Records regulations: The Federal rules restrict any use of the information to criminally investigate or prosecute any alcohol or drug abuse patient.[facility] [place]In the event this information is protected by the Federal Confidentiality of Alcohol and Drug Abuse Patient Records regulations: The Federal rules restrict any use of the information to criminally investigate or prosecute any alcohol or drug abuse patient.[facility] [place]In the event this information is protected by the Federal Confidentiality of Alcohol and Drug Abuse Patient Records regulations: The Federal rules restrict any use of the information to criminally investigate or prosecute any alcohol or drug abuse patient.[facility]In the event this information is protected by the Federal Confidentiality of Alcohol and Drug Abuse Patient Records regulations: The Federal rules restrict any use of the information to criminally investigate or prosecute any alcohol or drug abuse patient.[facility] [place]In the event this information is protected by the Federal Confidentiality of Alcohol and Drug Abuse Patient Records regulations: The Federal rules restrict any use of the information to criminally investigate or prosecute any alcohol or drug abuse patient.[facility] [place]In the event this information is protected by the Federal Confidentiality of Alcohol and Drug Abuse Patient Records regulations: The Federal rules restrict any use of the information to criminally investigate or prosecute any alcohol or drug abuse patient.[facility] [place]In the event this information is protected by the Federal Confidentiality of Alcohol and Drug Abuse Patient Records regulations: The Federal rules restrict any use of the information to criminally investigate or prosecute any alcohol or drug abuse patient.[facility] [place]In the event this information is protected by the Federal Confidentiality of Alcohol and Drug Abuse Patient Records regulations: The Federal rules restrict any use of the information to criminally investigate or prosecute any alcohol or drug abuse patient.[facility] [place]In the event this information is protected by the Federal Confidentiality of Alcohol and Drug Abuse Patient Records regulations: The Federal rules restrict any use of the information to criminally investigate or prosecute any alcohol or drug abuse patient.[facility] [place]In the event this information is protected by the Federal Confidentiality of Alcohol and Drug Abuse Patient Records regulations: The Federal rules restrict any use of the information to criminally investigate or prosecute any alcohol or drug abuse patient.[facility]In the event this information is protected by the Federal Confidentiality of Alcohol and Drug Abuse Patient Records regulations: The Federal rules restrict any use of the information to criminally investigate or prosecute any alcohol or drug abuse patient.[facility] [place]In the event this information is protected by the Federal Confidentiality of Alcohol and Drug Abuse Patient Records regulations: The Federal rules restrict any use of the information to criminally investigate or prosecute any alcohol or drug abuse patient.[facility]In the event this information is protected by the Federal Confidentiality of Alcohol and Drug Abuse Patient Records regulations: The Federal rules restrict any use of the information to criminally investigate or prosecute any alcohol or drug abuse patient.[facility]In the event this information is protected by the Federal Confidentiality of Alcohol and Drug Abuse Patient Records regulations: The Federal rules restrict any use of the information to criminally investigate or prosecute any alcohol or drug abuse patient.[facility] [place]In the event this information is protected by the Federal Confidentiality of Alcohol and Drug Abuse Patient Records regulations: The Federal rules restrict any use of the information to criminally investigate or prosecute any alcohol or drug abuse patient.[facility] [place]In the event this information is protected by the Federal Confidentiality of Alcohol and Drug Abuse Patient Records regulations: The Federal rules restrict any use of the information to criminally investigate or prosecute any alcohol or drug abuse patient.[facility] [place]In the event this information is protected by the Federal Confidentiality of Alcohol and Drug Abuse Patient Records regulations: The Federal rules restrict any use of the information to criminally investigate or prosecute any alcohol or drug abuse patient.[facility] [place]In the event this information is protected by the Federal Confidentiality of Alcohol and Drug Abuse Patient Records regulations: The Federal rules restrict any use of the information to criminally investigate or prosecute any alcohol or drug abuse patient.[facility] [place]In the event this information is protected by the Federal Confidentiality of Alcohol and Drug Abuse Patient Records regulations: The Federal rules restrict any use of the information to criminally investigate or prosecute any alcohol or drug abuse patient.[facility] [place]In the event this information is protected by the Federal Confidentiality of Alcohol and Drug Abuse Patient Records regulations: The Federal rules restrict any use of the information to criminally investigate or prosecute any alcohol or drug abuse patient.[facility] [place]In the event this information is protected by the Federal Confidentiality of Alcohol and Drug Abuse Patient Records regulations: The Federal rules restrict any use of the information to criminally investigate or prosecute any alcohol or drug abuse patient.[facility] [place]In the event this information is protected by the Federal Confidentiality of Alcohol and Drug Abuse Patient Records regulations: The Federal rules restrict any use of the information to criminally investigate or prosecute any alcohol or drug abuse patient.[facility]In the event this information is protected by the Federal Confidentiality of Alcohol and Drug Abuse Patient Records regulations: The Federal rules restrict any use of the information to criminally investigate or prosecute any alcohol or drug abuse patient.[facility] [place]In the event this information is protected by the Federal Confidentiality of Alcohol and Drug Abuse Patient Records regulations: The Federal rules restrict any use of the information to criminally investigate or prosecute any alcohol or drug abuse patient.[facility] [place]In the event this information is protected by the Federal Confidentiality of Alcohol and Drug Abuse Patient Records regulations: The Federal rules restrict any use of the information to criminally investigate or prosecute any alcohol or drug abuse patient.[facility]imaIn the event this information is protected by the Federal Confidentiality of Alcohol and Drug Abuse Patient Records regulations: The Federal rules restrict any use of the information to criminally investigate or prosecute any alcohol or drug abuse patient.[facility]In the event this information is protected by the Federal Confidentiality of Alcohol and Drug Abuse Patient Records regulations: The Federal rules restrict any use of the information to criminally investigate or prosecute any alcohol or drug abuse patient.[facility] [place]In the event this information is protected by the Federal Confidentiality of Alcohol and Drug Abuse Patient Records regulations: The Federal rules restrict any use of the information to criminally investigate or prosecute any alcohol or drug abuse patient.[facility]In the event this information is protected by the Federal Confidentiality of Alcohol and Drug Abuse Patient Records regulations: The Federal rules restrict any use of the information to criminally investigate or prosecute any alcohol or drug abuse patient.[facility]In the event this information is protected by the Federal Confidentiality of Alcohol and Drug Abuse Patient Records regulations: The Federal rules restrict any use of the information to criminally investigate or prosecute any alcohol or drug abuse patient.[facility] [place]In the event this information is protected by the Federal Confidentiality of Alcohol and Drug Abuse Patient Records regulations: The Federal rules restrict any use of the information to criminally investigate or prosecute any alcohol or drug abuse patient.[facility] [place]In the event this information is protected by the Federal Confidentiality of Alcohol and Drug Abuse Patient Records regulations: The Federal rules restrict any use of the information to criminally investigate or prosecute any alcohol or drug abuse patient.[facility] [place]In the event this information is protected by the Federal Confidentiality of Alcohol and Drug Abuse Patient Records regulations: The Federal rules restrict any use of the information to criminally investigate or prosecute any alcohol or drug abuse patient.[facility]In the event this information is protected by the Federal Confidentiality of Alcohol and Drug Abuse Patient Records regulations: The Federal rules restrict any use of the information to criminally investigate or prosecute any alcohol or drug abuse patient.[facility] [place]In the event this information is protected by the Federal Confidentiality of Alcohol and Drug Abuse Patient Records regulations: The Federal rules restrict any use of the information to criminally investigate or prosecute any alcohol or drug abuse patient.[facility]In the event this information is protected by the Federal Confidentiality of Alcohol and Drug Abuse Patient Records regulations: The Federal rules restrict any use of the information to criminally investigate or prosecute any alcohol or drug abuse patient.[facility]In the event this information is protected by the Federal Confidentiality of Alcohol and Drug Abuse Patient Records regulations: The Federal rules restrict any use of the information to criminally investigate or prosecute any alcohol or drug abuse patient.[facility] [place]In the event this information is protected by the Federal Confidentiality of Alcohol and Drug Abuse Patient Records regulations: The Federal rules restrict any use of the information to criminally investigate or prosecute any alcohol or drug abuse patient.[facility] [place]In the event this information is protected by the Federal Confidentiality of Alcohol and Drug Abuse Patient Records regulations: The Federal rules restrict any use of the information to criminally investigate or prosecute any alcohol or drug abuse patient.[facility] [place]In the event this information is protected by the Federal Confidentiality of Alcohol and Drug Abuse Patient Records regulations: The Federal rules restrict any use of the information to criminally investigate or prosecute any alcohol or drug abuse patient.[facility]In the event this information is protected by the Federal Confidentiality of Alcohol and Drug Abuse Patient Records regulations: The Federal rules restrict any use of the information to criminally investigate or prosecute any alcohol or drug abuse patient.[facility] [place]imaIn the event this information is protected by the Federal Confidentiality of Alcohol and Drug Abuse Patient Records regulations: The Federal rules restrict any use of the information to criminally investigate or prosecute any alcohol or drug abuse patient.[facility] [place]In the event this information is protected by the Federal Confidentiality of Alcohol and Drug Abuse Patient Records regulations: The Federal rules restrict any use of the information to criminally investigate or prosecute any alcohol or drug abuse patient.[facility] [place]In the event this information is protected by the Federal Confidentiality of Alcohol and Drug Abuse Patient Records regulations: The Federal rules restrict any use of the information to criminally investigate or prosecute any alcohol or drug abuse patient.[facility]imaIn the event this information is protected by the Federal Confidentiality of Alcohol and Drug Abuse Patient Records regulations: The Federal rules restrict any use of the information to criminally investigate or prosecute any alcohol or drug abuse patient.[facility]In the event this information is protected by the Federal Confidentiality of Alcohol and Drug Abuse Patient Records regulations: The Federal rules restrict any use of the information to criminally investigate or prosecute any alcohol or drug abuse patient.[facility]In the event this information is protected by the Federal Confidentiality of Alcohol and Drug Abuse Patient Records regulations: The Federal rules restrict any use of the information to criminally investigate or prosecute any alcohol or drug abuse patient.[facility]imaIn the event this information is protected by the Federal Confidentiality of Alcohol and Drug Abuse Patient Records regulations: The Federal rules restrict any use of the information to criminally investigate or prosecute any alcohol or drug abuse patient.[facility]In the event this information is protected by the Federal Confidentiality of Alcohol and Drug Abuse Patient Records regulations: The Federal rules restrict any use of the information to criminally investigate or prosecute any alcohol or drug abuse patient.[facility]In the event this information is protected by the Federal Confidentiality of Alcohol and Drug Abuse Patient Records regulations: The Federal rules restrict any use of the information to criminally investigate or prosecute any alcohol or drug abuse patient.[facility]In the event this information is protected by the Federal Confidentiality of Alcohol and Drug Abuse Patient Records regulations: The Federal rules restrict any use of the information to criminally investigate or prosecute any alcohol or drug abuse patient.[facility]In the event this information is protected by the Federal Confidentiality of Alcohol and Drug Abuse Patient Records regulations: The Federal rules restrict any use of the information to criminally investigate or prosecute any alcohol or drug abuse patient.[facility]In the event this information is protected by the Federal Confidentiality of Alcohol and Drug Abuse Patient Records regulations: The Federal rules restrict any use of the information to criminally investigate or prosecute any alcohol or drug abuse patient.[facility] [place]In the event this information is protected by the Federal Confidentiality of Alcohol and Drug Abuse Patient Records regulations: The Federal rules restrict any use of the information to criminally investigate or prosecute any alcohol or drug abuse patient.[facility] [place]imaIn the event this information is protected by the Federal Confidentiality of Alcohol and Drug Abuse Patient Records regulations: The Federal rules restrict any use of the information to criminally investigate or prosecute any alcohol or drug abuse patient.[facility]imaIn the event this information is protected by the Federal Confidentiality of Alcohol and Drug Abuse Patient Records regulations: The Federal rules restrict any use of the information to criminally investigate or prosecute any alcohol or drug abuse patient.[facility]imaIn the event this information is protected by the Federal Confidentiality of Alcohol and Drug Abuse Patient Records regulations: The Federal rules restrict any use of the information to criminally investigate or prosecute any alcohol or drug abuse patient.[facility]imaIn the event this information is protected by the Federal Confidentiality of Alcohol and Drug Abuse Patient Records regulations: The Federal rules restrict any use of the information to criminally investigate or prosecute any alcohol or drug abuse patient.[facility]imaIn the event this information is protected by the Federal Confidentiality of Alcohol and Drug Abuse Patient Records regulations: The Federal rules restrict any use of the information to criminally investigate or prosecute any alcohol or drug abuse patient.[facility]imaIn the event this information is protected by the Federal Confidentiality of Alcohol and Drug Abuse Patient Records regulations: The Federal rules restrict any use of the information to criminally investigate or prosecute any alcohol or drug abuse patient.[facility]imaIn the event this information is protected by the Federal Confidentiality of Alcohol and Drug Abuse Patient Records regulations: The Federal rules restrict any use of the information to criminally investigate or prosecute any alcohol or drug abuse patient.[facility]imaIn the event this information is protected by the Federal Confidentiality of Alcohol and Drug Abuse Patient Records regulations: The Federal rules restrict any use of the information to criminally investigate or prosecute any alcohol or drug abuse patient.[facility]imaIn the event this information is protected by the Federal Confidentiality of Alcohol and Drug Abuse Patient Records regulations: The Federal rules restrict any use of the information to criminally investigate or prosecute any alcohol or drug abuse patient.[facility]imaIn the event this information is protected by the Federal Confidentiality of Alcohol and Drug Abuse Patient Records regulations: The Federal rules restrict any use of the information to criminally investigate or prosecute any alcohol or drug abuse patient.[facility]imaIn the event this information is protected by the Federal Confidentiality of Alcohol and Drug Abuse Patient Records regulations: The Federal rules restrict any use of the information to criminally investigate or prosecute any alcohol or drug abuse patient.[facility]imaIn the event this information is protected by the Federal Confidentiality of Alcohol and Drug Abuse Patient Records regulations: The Federal rules restrict any use of the information to criminally investigate or prosecute any alcohol or drug abuse patient.[facility]imaIn the event this information is protected by the Federal Confidentiality of Alcohol and Drug Abuse Patient Records regulations: The Federal rules restrict any use of the information to criminally investigate or prosecute any alcohol or drug abuse patient.[facility]imaIn the event this information is protected by the Federal Confidentiality of Alcohol and Drug Abuse Patient Records regulations: The Federal rules restrict any use of the information to criminally investigate or prosecute any alcohol or drug abuse patient.[facility]imaIn the event this information is protected by the Federal Confidentiality of Alcohol and Drug Abuse Patient Records regulations: The Federal rules restrict any use of the information to criminally investigate or prosecute any alcohol or drug abuse patient.[facility]imaIn the event this information is protected by the Federal Confidentiality of Alcohol and Drug Abuse Patient Records regulations: The Federal rules restrict any use of the information to criminally investigate or prosecute any alcohol or drug abuse patient.[facility] LimaIn the event this information is protected by the Federal Confidentiality of Alcohol and Drug Abuse Patient Records regulations: The Federal rules restrict any use of the information to criminally investigate or prosecute any alcohol or drug abuse patient.[facility]imaIn the event this information is protected by the Federal Confidentiality of Alcohol and Drug Abuse Patient Records regulations: The Federal rules restrict any use of the information to criminally investigate or prosecute any alcohol or drug abuse patient.[facility]imaIn the event this information is protected by the Federal Confidentiality of Alcohol and Drug Abuse Patient Records regulations: The Federal rules restrict any use of the information to criminally investigate or prosecute any alcohol or drug abuse patient.[facility]imaIn the event this information is protected by the Federal Confidentiality of Alcohol and Drug Abuse Patient Records regulations: The Federal rules restrict any use of the information to criminally investigate or prosecute any alcohol or drug abuse patient.[facility]imaIn the event this information is protected by the Federal Confidentiality of Alcohol and Drug Abuse Patient Records regulations: The Federal rules restrict any use of the information to criminally investigate or prosecute any alcohol or drug abuse patient.[facility]imaIn the event this information is protected by the Federal Confidentiality of Alcohol and Drug Abuse Patient Records regulations: The Federal rules restrict any use of the information to criminally investigate or prosecute any alcohol or drug abuse patient.[facility]imaIn the event this information is protected by the Federal Confidentiality of Alcohol and Drug Abuse Patient Records regulations: The Federal rules restrict any use of the information to criminally investigate or prosecute any alcohol or drug abuse patient.[facility]imaIn the event this information is protected by the Federal Confidentiality of Alcohol and Drug Abuse Patient Records regulations: The Federal rules restrict any use of the information to criminally investigate or prosecute any alcohol or drug abuse patient.[facility]imaIn the event this information is protected by the Federal Confidentiality of Alcohol and Drug Abuse Patient Records regulations: The Federal rules restrict any use of the information to criminally investigate or prosecute any alcohol or drug abuse patient.[facility]imaIn the event this information is protected by the Federal Confidentiality of Alcohol and Drug Abuse Patient Records regulations: The Federal rules restrict any use of the information to criminally investigate or prosecute any alcohol or drug abuse patient.[facility]imaIn the event this information is protected by the Federal Confidentiality of Alcohol and Drug Abuse Patient Records regulations: The Federal rules restrict any use of the information to criminally investigate or prosecute any alcohol or drug abuse patient.[facility]imaIn the event this information is protected by the Federal Confidentiality of Alcohol and Drug Abuse Patient Records regulations: The Federal rules restrict any use of the information to criminally investigate or prosecute any alcohol or drug abuse patient.[facility]imaIn the event this information is protected by the Federal Confidentiality of Alcohol and Drug Abuse Patient Records regulations: The Federal rules restrict any use of the information to criminally investigate or prosecute any alcohol or drug abuse patient.[facility]imaIn the event this information is protected by the Federal Confidentiality of Alcohol and Drug Abuse Patient Records regulations: The Federal rules restrict any use of the information to criminally investigate or prosecute any alcohol or drug abuse patient.[facility]imaIn the event this information is protected by the Federal Confidentiality of Alcohol and Drug Abuse Patient Records regulations: The Federal rules restrict any use of the information to criminally investigate or prosecute any alcohol or drug abuse patient.[facility]imaIn the event this information is protected by the Federal Confidentiality of Alcohol and Drug Abuse Patient Records regulations: The Federal rules restrict any use of the information to criminally investigate or prosecute any alcohol or drug abuse patient.[facility]imaIn the event this information is protected by the Federal Confidentiality of Alcohol and Drug Abuse Patient Records regulations: The Federal rules restrict any use of the information to criminally investigate or prosecute any alcohol or drug abuse patient.[facility]imaIn the event this information is protected by the Federal Confidentiality of Alcohol and Drug Abuse Patient Records regulations: The Federal rules restrict any use of the information to criminally investigate or prosecute any alcohol or drug abuse patient.[facility]imaIn the event this information is protected by the Federal Confidentiality of Alcohol and Drug Abuse Patient Records regulations: The Federal rules restrict any use of the information to criminally investigate or prosecute any alcohol or drug abuse patient.[facility]imaIn the event this information is protected by the Federal Confidentiality of Alcohol and Drug Abuse Patient Records regulations: The Federal rules restrict any use of the information to criminally investigate or prosecute any alcohol or drug abuse patient.[facility]imaIn the event this information is protected by the Federal Confidentiality of Alcohol and Drug Abuse Patient Records regulations: The Federal rules restrict any use of the information to criminally investigate or prosecute any alcohol or drug abuse patient.[facility]imaIn the event this information is protected by the Federal Confidentiality of Alcohol and Drug Abuse Patient Records regulations: The Federal rules restrict any use of the information to criminally investigate or prosecute any alcohol or drug abuse patient.[facility]imaIn the event this information is protected by the Federal Confidentiality of Alcohol and Drug Abuse Patient Records regulations: The Federal rules restrict any use of the information to criminally investigate or prosecute any alcohol or drug abuse patient.[facility]imaIn the event this information is protected by the Federal Confidentiality of Alcohol and Drug Abuse Patient Records regulations: The Federal rules restrict any use of the information to criminally investigate or prosecute any alcohol or drug abuse patient.[facility]imaIn the event this information is protected by the Federal Confidentiality of Alcohol and Drug Abuse Patient Records regulations: The Federal rules restrict any use of the information to criminally investigate or prosecute any alcohol or drug abuse patient.[facility]imaIn the event this information is protected by the Federal Confidentiality of Alcohol and Drug Abuse Patient Records regulations: The Federal rules restrict any use of the information to criminally investigate or prosecute any alcohol or drug abuse patient.[facility]imaIn the event this information is protected by the Federal Confidentiality of Alcohol and Drug Abuse Patient Records regulations: The Federal rules restrict any use of the information to criminally investigate or prosecute any alcohol or drug abuse patient.[facility]imaIn the event this information is protected by the Federal Confidentiality of Alcohol and Drug Abuse Patient Records regulations: The Federal rules restrict any use of the information to criminally investigate or prosecute any alcohol or drug abuse patient.[facility] Care Teams (unrecognized sec tion and content) [...] Role Status Dates Gay Natalie Britt , FLAT SHEET MAKER-C Primary Care Provider Active Start: February 14, [...] February 28, 2025Gay De La Torre , FLAT SHEET MAKER-CPrimary Care ProviderActiveStart: February 28, 2025 End: February 28, 2025 Team Status: Active Member Role Status Dates Gay De La Torre FLAT SHEET MAKER-C Primary Care Provider Active Start: November 21, 2024 Adolfo Kang , MDAttending ProviderActiveStart: November 21, 2024 Team Status: Inactive Member Role Status Dates Gay De La Torre FLAT SHEET MAKER-C Primary Care Provider Active Start: November 21, 2024 End: November 21, 2024Shana Kang , MDAttending ProviderActiveStart: November 21, 2024 End: November 21, 2024 Team Status: Active Member Role Status Dates Gay De La Torre FLAT SHEET MAKER-C Primary Care Provider Active Start: November 22, [...] November 04, 2023 End: November 04, 2023Microdrick aBer MDAttending ProviderActiveStart: November 04, 2023 End: November 04, 2023Team MemberRelationshipSpecialtyStart DateEnd Date Gay De La Torre, CLOTH DYEING RANGE TENDER.SINGLE POINTED OPERATOR [address] [place] [address] PCP - GeneralFamily Practice10/24/21Team MemberRelationshipSpecialtyStart DateEnd Date Gay De La Torre, CLOTH DYEING RANGE TENDER.SINGLE POINTED OPERATOR [address] [place] [address] PCP - GeneralClarinda Regional Health Centerly Medicine10/24/21 Manuel Ferris MD [address] [place] [address] ReferringFami Medicine02/12/22Team MemberRelationshipSpecialtyStart DateEnd Date Manuel Ferris MD [address] [place] [address] PCP - Generalmily Oscyrfqq99/7/22 Manuel Ferris MD [address] [place] [address] ReferringFamily Medicine02/12/22Team MemberRelationshipSpecialtyStart DateEnd Date Manuel Ferris MD [address] [place] [address] PCP - Generalmily Cdihooro92/7/22 Manuel Ferris MD [address] [place] [address] ReferringFamily Medicine02/12/22Team MemberRelationshipSpecialtyStart DateEnd Date Manuel Ferris MD [address] [place] [address] PCP - GeneralFamily Vdmvwlgy98/7/22 Manuel Ferris MD [address] [place] [facility] [place] [address] ReferringFamily Medicine02/12/22Team MemberRelationshipSpecialtyStart DateEnd Date Manuel Ferris MD [address] [place] [facility] [place] [address] PCP - GeneralFamily Nelhxkzy80/7/22 Manuel Ferris MD [address] [place] [place] [address] ReferringFamily Medicine02/12/22Team MemberRelationshipSpecialtyStart DateEnd Date Manuel Ferris MD [address] [place] [address] PCP - GeneralFamily Pziqgcio29/7/22 Manuel Ferris MD [address] [place] [place] [address] ReferringFamily Medicine02/12/22Team MemberRelationshipSpecialtyStart DateEnd Date Manuel Ferris MD [address] [place] [place] [address] PCP - GeneralFamily Ghymirdm36/7/22 Manuel Ferris MD [address] [place] [place] [address] ReferringFamily Medicine02/12/22Team MemberRelationshipSpecialtyStart DateEnd Date Manuel Ferris MD [address] [place] [place] [address] PCP - GeneralFamily Zpjstpjq31/7/22 Manuel Ferris MD [address] [place] [place] [address] ReferringFamily Medicine02/12/22Team MemberRelationshipSpecialtyStart DateEnd Date Manuel Ferris MD [address] [place] [place] [address] PCP - Generalmily Wyxdzqjx49/7/22 Manuel Ferris MD [address] [place] [place] [address] ReferringFamily Medicine02/12/22Team MemberRelationshipSpecialtyStart DateEnd Date Manuel Ferris MD [address] [place] [place] [address] PCP - GeneralFamily Kkwjgtdm73/7/22 Manuel Ferris MD [address] [place] [place] [address] ReferringFamily Medicine02/12/22Team MemberRelationshipSpecialtyStart DateEnd Date Manuel Ferris MD [address] [place] [place] [address] PCP - Generalmily Wkbgledf70/7/22 Manuel Ferris MD [address] [place] [place] [address] ReferringFamily Medicine02/12/22Team MemberRelationshipSpecialtyStart DateEnd Date Manuel Ferris MD [address] [place] [place] [address] PCP - GeneralFamily Dzpmnmnq50/7/22 Manuel Ferris MD [address] [place] [place] [address] ReferringFamily Medicine02/12/22Team MemberRelationshipSpecialtyStart DateEnd Date Manuel Ferris MD [address] [place] [place] [address] PCP - GeneralFamily Yqqfozrp09/7/22 Manuel Ferris MD [address] [place] [place] [address] ReferringFamily Medicine02/12/22Team MemberRelationshipSpecialtyStart DateEnd Date Manuel Ferris MD [address] [place] [place] [address] PCP - GeneralFamily Nvvkwpog29/7/22 Manuel Ferris MD [address] [place] [place] [address] ReferringFamily Medicine02/12/22Team MemberRelationshipSpecialtyStart DateEnd Date Manuel Ferris MD [address] [place] [place] [address] PCP - GeneralFamily Lahnstue64/7/22 Manuel Ferris MD [address] [place] [place] [address] ReferringFamily Medicine02/12/22Team MemberRelationshipSpecialtyStart DateEnd Date Manuel Ferris MD [address] [place] [place] [address] PCP - GeneralFamily Dstantbn85/7/22 Manuel Ferris MD [address] [place] [place] [address] ReferringFamily Medicine02/12/22Team MemberRelationshipSpecialtyStart DateEnd Date Manuel Ferris MD [address] [place] [place] [address] PCP - GeneralFamily Ppztawfy60/7/22 Manuel Ferris MD [address] [place] [place] [address] ReferringFamily Medicine02/12/22Team MemberRelationshipSpecialtyStart DateEnd Date Manuel Ferris MD [address] [place] [address] PCP - GeneralFamily Qrxeivtz04/7/22 Manuel Ferris MD [address] [place] [place] [address] ReferringFamily Medicine02/12/22Team MemberRelationshipSpecialtyStart DateEnd Date Manuel Ferris MD [address] [place] [place] [address] PCP - GeneralFamily Rizazddl84/7/22 Manuel Ferris MD [address] [place] [place] [address] ReferringFamily Medicine02/12/22Team MemberRelationshipSpecialtyStart DateEnd Date Manuel Ferris MD [address] [place] [place] [address] PCP - GeneralFamily Ohrhebpf53/7/22 Manuel Ferris MD [address] [place] [place] [address] ReferringFamily Medicine02/12/22Team MemberRelationshipSpecialtyStart DateEnd Date Manuel Ferris MD [address] [place] [place] [address] PCP - GeneralFamily Fcukyche55/7/22 Manuel Ferris MD [address] [place] [place] [address] ReferringFamily Medicine02/12/22Team MemberRelationshipSpecialtyStart DateEnd Date Manuel Ferris, [address] [place] [address] PCP - GeneralFamily Syukhitu58/7/22 Manuel Ferris MD [address] [place] [address] ReferringFamily Medicine02/12/22Team MemberRelationshipSpecialtyStart DateEnd Date Manuel Ferris MD PCP - GeneralFamily Vyrqlwsx78/7/22 Manuel Ferris MD ReferringFamily Medicine02/12/22Team MemberRelationshipSpecialtyStart DateEnd Date Manuel Ferris MD PCP - GeneralFamily Dvickeel03/7/22 Manuel Ferris MD ReferringFamily Medicine02/12/22Team MemberRelationshipSpecialtyStart DateEnd Date Manuel Ferris MD PCP - GeneralFamily Ycwayysa57/7/22 Manuel Ferris MD ReferringFamily Medicine02/12/22Team MemberRelationshipSpecialtyStart DateEnd Date Manuel Ferris MD PCP - GeneralFamily Zoziknep86/7/22 Manuel Ferris MD ReferringFamily Medicine02/12/22Team MemberRelationshipSpecialtyStart DateEnd Date Manuel Ferris MD PCP - GeneralFamily Ekfkzhlj40/7/22 Manuel Ferris MD ReferringFamily Medicine02/12/22Team MemberRelationshipSpecialtyStart DateEnd Date Manuel Ferris MD PCP - GeneralFamily Hykzyrln29/7/22 Manuel Ferris MD ReferringFamily Medicine02/12/22Team MemberRelationshipSpecialtyStart DateEnd Date Manuel Ferris MD PCP - GeneralFamily Hzbmauql73/7/22 Manuel Ferris MD ReferringFamily Medicine02/12/22Team MemberRelationshipSpecialtyStart DateEnd Date Manuel Ferris MD PCP - GeneralFamily Xqjfzvro62/7/22 Manuel Ferris MD ReferringFamily Medicine02/12/22Team MemberRelationshipSpecialtyStart DateEnd Date Manuel Ferris MD PCP - GeneralFamily Cejybmju56/7/22 Manuel Ferris MD ReferringFamily Medicine02/12/22Team MemberRelationshipSpecialtyStart DateEnd Date Manuel Ferris MD PCP - GeneralFamily Iwgpqwrq33/7/22 Manuel Ferris MD ReferringFamily Medicine02/12/22Team MemberRelationshipSpecialtyStart DateEnd Date Manuel Ferris MD PCP - GeneralFamily Aibtgyuv57/7/22 Manuel Ferris MD ReferringFamily Medicine02/12/22Team MemberRelationshipSpecialtyStart DateEnd Date Manuel Ferris MD PCP - GeneralFamily Haxgaega75/7/22 Manuel Ferris MD ReferringFamily Medicine02/12/22Team MemberRelationshipSpecialtyStart DateEnd Date Manuel Ferris MD PCP - Generalmily Rbemzpij24/7/22 Manuel Ferris MD ReferringFamily Medicine02/12/22Team MemberRelationshipSpecialtyStart DateEnd Date Manuel Ferris MD PCP - GeneralFamily Ezfkbxox18/7/22 Manuel Ferris MD ReferringFamily Medicine02/12/22Team MemberRelationshipSpecialtyStart DateEnd Date Manuel Ferris MD PCP - GeneralFamily Jviikmbg52/7/22 Manuel Ferris MD ReferringFamily Medicine02/12/22Team MemberRelationshipSpecialtyStart DateEnd Date Manuel Ferris MD PCP - GeneralFamily Xiicgcud47/7/22 Manuel Ferris MD ReferringFamily Medicine02/12/22Team MemberRelationshipSpecialtyStart DateEnd Date Manuel Ferris MD PCP - GeneralFamily Juzugdqd41/7/22 Manuel Ferris MD ReferringFamily Medicine02/12/22Team MemberRelationshipSpecialtyStart DateEnd Date Manuel Ferris MD PCP - GeneralFamily Nemmjkeq69/7/22 Manuel Ferris MD ReferringFamily Medicine02/12/22Team MemberRelationshipSpecialtyStart DateEnd Date Manuel Ferris MD PCP - GeneralFamily Rjnsdqar98/7/22 Manuel Ferris MD ReferringFamily Medicine02/12/22Team MemberRelationshipSpecialtyStart DateEnd Date Manuel Ferris MD PCP - GeneralFamily Sfqnumre42/7/22 Manuel Ferris MD ReferringFamily Medicine02/12/22Team MemberRelationshipSpecialtyStart DateEnd Date Manuel Ferris MD PCP - [facility] Obhdmvcv22/7/22 Manuel Ferris MD Referringmily Medicine02/12/22Team MemberRelationshipSpecialtyStart DateEnd Date Manuel Ferris MD PCP - [facility] Edjjmkdc46/7/22 Manuel Ferris MD [facility]erringPen[facility] Medicine02/12/22Team MemberRelationshipSpecialtyStart DateEnd Date Manuel Ferris MD PCP - [facility] Gmlkouvc99/7/22 Manuel Ferris MD ReferringPen[facility] Medicine02/12/22Team MemberRelationshipSpecialtyStart DateEnd Date Manuel Ferris MD PCP - [facility] Fqnkcujm72/7/22 Manuel Ferris MD Referringmily Medicine02/12/22Team MemberRelationshipSpecialtyStart DateEnd Date Manuel Ferris MD PCP - [facility] Kxuqhzcb30/7/22 Manuel Ferris MD ReferringFamily Medicine02/12/22Team MemberRelationshipSpecialtyStart DateEnd Date Manuel Ferris MD PCP - GeneralFamily Uogkgubv31/7/22 Manuel Ferris MD ReferringFamily Medicine02/12/22Team MemberRelationshipSpecialtyStart DateEnd Date Charles Nicole DO [address] [place] [address] PCP - General10/22/18 Michelle Jasmine, CLOTH DYEING RANGE TENDER-SINGLE POINTED OPERATOR [address] [facility] [address] [place] [address] Nurse PractitionerCardiology06/08/23Te MemberRelationshipSpecialtyStart DateEnd Date Gay De La Torre, CLOTH DYEING RANGE TENDER-SINGLE POINTED OPERATOR [address] [place] [address] PCP - General07/13/23 Michelle Jasmine, CLOTH DYEING RANGE TENDER-SINGLE POINTED OPERATOR [address] [facility] [address] [place] [address] Nurse PractitionerCardiology06/08/23 Aurora Patel MD [address] [facility] [address] [place] [address] Consulting PhysicianCardiology06/23/23Team MemberRelationshipSpecialtyStart Date End Date Manuel Ferrsi MD PCP - GeneralFamily Liznbeyn29/7/22 Manuel Ferris MD ReferringFamily Medicine02/12/22Team MemberRelationshipSpecialtyStart DateEnd Date Manuel Ferris MD PCP - Generalmily Valnsstg53/7/22 Manuel Ferris MD ReferringClarinda [facility] Centerly Medicine02/12/22 Team Status: Active Member Role Status Mark Salomon MD Primary Care Provider Active Start: July 28, 2023 Zarina Thomas ProviderActiveStart: July 28, 2023 Team MemberRelationshipSpecialtyStart DateEnd Date Manuel Ferris MD PCP - [facility] Xjhgbgkf49/7/22 Manuel Ferris MD ReferringPen[facility] Medicine02/12/22 Team Status: Inactive Member Role Status Mark Salomon MD Primary Care Provider Active Start: December 16, 2023 End: December 16, 2023MicZarina Barraza ProviderActiveStart: December 16, 2023 End: December 16, 2023Team MemberRelationshipSpecialtyStart DateEnd Date [facility] Ncbbjcrb41/7/22 Manuel Ferris MD ReferringPen[facility] Medicine02/12/22Team MemberRelationshipSpecialtyStart DateEnd Date Manuel Ferris MD PCP - [facility]02/27/22 [facility]/22Team MemberRelationshipSpecialtyStart End Manuel Ferris MD PCP - [facility]02/27/22 Manuel Ferris MD [facility]02/12/22Team MemberRelationshipSpecialtyStart DateEnd Manuel Ferris MD PCP - [facility]02/27/22 Manuel Ferris MD [facility]02/12/22 Team Status: Inactive Member Role Status Dates [...] 2024 End: February 15kendrick De La Torre FLAT SHEET MAKER-CPrimary Care ProviderActive Start: February 16, 2024 End: February 16, 2024 Team Status: Active Member Role Status Dates Adolfo Kang MD Attending Provider, Other Provider Active Start: February 16, 2024 Gay De La Torre FLAT SHEET MAKER-CPrimary Care ProviderActiveStart: February 16, 2024 Team Status: Inactive Member Role Status Dates Adolfo Kang MD Attending Provider Active Sta rt: February 28, 2024 End: February 27kendirck De La Torre FLAT SHEET MAKER-CPrimary Care ProviderActiveStart: February 28, 2024 End: February 28, 2024Team MemberRelationshipSpecialtyStart DateEnd Charles Russell MD [address] [place] [address] PCP - GeneralFamily Medicine02/09/24 Team Status: Inactive Member Role Status Dates Gay De La Torre , FLAT SHEET MAKER-C Primary Care Provider Active Start: March 16, 2024 End: March 16Luiz Park ProviderActiveStart: March 16, 2024 End: March 16, 2024Team MemberRelationshipSpecialtyStart Charles Quiros MD [address] [place] [address] PCP - Generalmily Medicine02/09/24Team MemberRelationshipSpecialtyStart DateEnd Charles Russell MD [address] [place] [address] PCP - Generalmily Medicine02/09/24Team MemberRelationshipSpecialtyStart DateEnd Charles Russell MD [address] [place] [address] PCP - GeneralFamily Medicine02/09/24Team MemberRelationshipSpecialtyStart DateEnd Charles Russell MD [address] [place] [address] PCP - Generalmily Medicine02/09/24Team MemberRelationshipSpecialtyStart Charles Quiros MD [address] [place] [address] PCP - GeneralFamily Medicine02/09/24Team MemberRelationshipSpecialtyStart DateEnd Date Manuel Ferris MD PCP - GeneralFamily Cdnrpsno19/7/22 Manuel Ferris MD ReferringFamily Medicine02/12/22Team MemberRelationshipSpecialtyStart DateEnd Date Charles Nicole MD [address] [place] [address] PCP - Generalmily Medicine02/09/24Team MemberRelationshipSpecialtyStart DateEnd Date Charles Nicole MD [address] [place] [address] PCP - Generalmily Medicine02/09/24Team MemberRelationshipSpecialtyStart DateEnd Date Charles Nicole MD [address] [place] [address] PCP - Generalmily Medicine02/09/24Team MemberRelationshipSpecialtyStart DateEnd Date Charles Nicole MD [address] [place] [address] PCP - Generalmily Medicine02/09/24Team MemberRelationshipSpecialtyStart DateEnd Date Manuel Ferris MD PCP - GeneralFamily Resieekn74/7/22 Manuel Ferris MD ReferringFamily Medicine02/12/22Team MemberRelationshipSpecialtyStart DateEnd Date Charles Nicole MD [address] [place] [address] PCP - GeneralFamily Medicine02/09/24Team MemberRelationshipSpecialtyStart DateEnd Date Manuel Ferris MD PCP - GeneralFamily Gqdvjcku77/7/22 Manuel Ferris MD ReferringFamily Medicine02/12/22Team MemberRelationshipSpecialtyStart DateEnd Date Manuel Ferris MD PCP - GeneralFamily Mpgjiimt38/7/22 Manuel Ferris MD ReferringFamily Medicine02/12/22Team MemberRelationshipSpecialtyStart DateEnd Date Charles Nicole MD [address] [place] [address] PCP - GeneralFamily Medicine02/09/24Team MemberRelationshipSpecialtyStart DateEnd Date Manuel Ferris MD PCP - GeneralFamily Pkmowmru09/7/22 Manuel Ferris MD ReferringFamily Medicine02/12/22 Manuel Ferris MD [address] [place] [address] ReferringFamily Medicine07/06/24 Team Status: Inactive Member Role Status Dates Gay De La Torre NP-C Primary Care Provider Active Start: July 10, 2024 End: July 10, 2024Zarina Pickering ProviderActiveStart: July 10, 2024 End: July 10, 2024Team MemberRelationshipSpecialtyStart DateEnd Date Manuel Ferris MD PCP - GeneralFamily Qaesbbsi22/7/22 Manuel Ferris MD ReferringFami Medicine02/12/22 Manuel Ferris MD [address] [phone] [facility]erring[facility]07/06/24Team MemberRelationshipSpecialtyStart DateEnd Date Manuel Ferris MD PCP - Generalmily Fbbhldmh78/7/22 Manuel Ferris MD ReferringFami Medicine02/12/22 Manuel Ferris MD [address] [phone] [facility]erring[facility]07/06/24 Team Status: Inactive Member Role Status Dates Gay De La Torre NP-C Primary Care Provider Active Start: July 19, 2024 End: July 19, 2024Zarina Pickering ProviderActiveStart: July 19, 2024 End: July 19, 2024Team MemberRelationshipSpecialtyStart DateEnd Date Gay De La Torre MD [address] [phone] Referring Physicianmily Medicine07/18/24Team MemberRelationshipSpecialtyStart DateEnd Date Manuel Ferris MD PCP - GeneralClarinda [facility] Health Centerly Hxycqwtj77/7/22 Manuel Ferris MD ReferringFamily Medicine02/12/22 Manuel Ferris MD [address] [place] [address] [facility]erringPen[facility] Medicine07/06/24Team MemberRelationshipSpecialtyStart DateEnd Date Gay De La Torre MD [address] [place] [address] Referring PhysicianPenikese [facility] Medicine07/18/24Team MemberRelationshipSpecialtyStart DateEnd Date Gay De La Torre, CLOTH DYEING RANGE TENDER-SINGLE POINTED OPERATOR [address] [place] [address] PCP - General07/13/23 Michelle Jasmine, CLOTH DYEING RANGE TENDER-SINGLE POINTED OPERATOR Nurse PractitionerCardiology06/08/23 Aurora Patel MD Consulting PhysicianCardiology06/23/23 [...] DateEnd Date Manuel Ferris MD PCP - GeneralClarinda Regional Health Centerly Pbwtatjc81/7/22 Manuel Ferris MD ReferringClarinda Regional Health Centerly Medicine02/12/22 Manuel Ferris MD [address] [place] [address] [facility]erring[facility]07/06/24Team MemberRelationshipSpecialtyStart End Manuel Ferris MD PCP - GeneralClarinda Regional Health Centerly Nrefvsfe17/7/22 Manuel Ferris MD ReferringPenik[facility] Medicine02/12/22 Manuel Ferris MD [address] [place] [address] ReferringSt[facility]07/06/24Team MemberRelationshipSpecialtyStart End Date Manuel Ferris MD PCP - GeneralPenik[facility] Likychrp27/7/22 Manuel Ferris MD ReferringPen[facility] Medicine02/12/22 Manuel Ferris MD [address] [place] [address] [facility]erring[facility]07/06/24 Team Status: Inactive Member Role Status Dates Gay De La Torre , FLAT SHEET MAKER-C Primary Care Provider Active Start: August 22, 2024 End: August 22, 2024Shana Kang MDAttending ProviderActiveStart: August 22, 2024 End: August 22, 2024Team MemberRelationshipSpecialtyStart DateEnd Date Gay De La Torre MD [facility] [place] [address] Referring Physicianmi Medicine07/18/24Team MemberRelationshipSpecialtyStart DateEnd Date Manuel Ferris MD PCP - Generalmily Bbwugzhn49/7/22 Manuel Ferris MD ReferringFamily Medicine02/12/22 Manuel Ferris MD [address] [place] [address] ReferringFami Medicine07/06/24Team MemberRelationshipSpecialtyStart DateEnd Date Manuel Ferris MD PCP - GeneralClarinda Regional Health Centerly Anmesjac19/7/22 Manuel Ferris MD ReferringFamily Medicine02/12/22 [place] [address] [place] [address] ReferringPen[facility] Medicine07/06/24Team MemberRelationshipSpecialtyStart DateEnd Date Gay De La Torre MD [address] [place] [address] Referring PhysicianPenikese [facility] Medicine07/18/24Team MemberRelationshipSpecialtyStart DateEnd Date Gay De La Torre MD [address] [place], [place] [phone] Referring PhysicianFamily Medicine07/18/24Team MemberRelationshipSpecialtyStart DateEnd Date Manuel Ferris MD PCP - GeneralFamily Igdzizbd53/7/22 Manuel Ferris MD ReferringFamily Medicine02/12/22 Manuel Ferris MD [address] [place] [address] Referringmily Medicine07/06/24Team MemberRelationshipSpecialtyStart DateEnd Manuel Ferris MD PCP - Generalmily Bmtjaald11/7/22 Manuel Ferris MD ReferringFamily Medicine02/12/22 Manuel Ferris MD [address] [place], [place] [phone] ReferringFamily Medicine07/06/24Team MemberRelationshipSpecialtyStart DateEnd Date Manuel Ferris MD PCP - GeneralFamily Wqcdskzb42/7/22 Manuel Ferris MD ReferringFamily Medicine02/12/22 Manuel Ferris MD [address] [place] [facility] [place] [address] ReferringFamily Medicine07/06/24Te MemberRelationshipSpecialtyStart DateEnd Manuel Ferris MD PCP - GeneralFamily Kpcjxrzi87/7/22 Manuel Ferris MD ReferringFamily Medicine02/12/22 Manuel Ferris MD [address] [place] [address] Referringmi Medicine07/06/24Te MemberRelationshipSpecialtyStart End Manuel Ferris MD PCP - GeneralFamily Mniiwknq44/7/22 Manuel Ferris MD ReferringFamily Medicine02/12/22 Manuel Ferris MD [address] [place] [facility] [place] [address] ReferringFami Medicine07/06/24Team MemberRelationshipSpecialtyStart DateEnd Date Manuel Ferris MD PCP - Generalmily Vsrlvmtc32/7/22 Manuel Ferris MD ReferringFamily Medicine02/12/22 Manuel Ferris MD [address] [place] [facility] [place] [address] ReferringFamily Medicine07/06/24Team MemberRelationshipSpecialtyStart End Manuel Ferris MD PCP - GeneralFamily Nyasdpho30/7/22 Manuel Ferris MD ReferringFamily Medicine02/12/22 Manuel Ferris MD [address] [place] [address] ReferringFamily Medicine07/06/24Team MemberRelationshipSpecialtyStart DateEnd Manuel Ferris MD PCP - GeneralFamily Ionghcki68/7/22 Manuel Ferris MD ReferringFamily Medicine02/12/22 Manuel Ferris MD [address] [place] [address] ReferringFamily Medicine07/06/24Team MemberRelationshipSpecialtyStart End Manuel Ferris MD PCP - GeneralFamily Fzeckdim32/7/22 Manuel Ferris MD ReferringFamily Medicine02/12/22 Manuel Ferris MD [address] [place] [address] ReferringFamily Medicine07/06/24Team MemberRelationshipSpecialtyStart DateEnd Date Manuel Ferris MD PCP - GeneralFamily Zdszrpqr39/7/22 Manuel Ferris MD ReferringFamily Medicine02/12/22 Manuel Ferris MD [address] [place] [address] ReferringFamily Medicine07/06/24Team MemberRelationshipSpecialtyStart DateEnd Date Manuel Ferris MD PCP - GeneralFamily Pzohopxt65/7/22 Manuel Ferris MD ReferringFamily Medicine02/12/22 Manuel Ferris MD [address] [place] [address] ReferringSt[facility]07/06/24Team MemberRelationshipSpecialtyStart DateEnd Date Manuel Ferris MD PCP - Generalmily Cmupgdsa13/7/22 Manuel Ferris MD ReferringFamily Medicine02/12/22 Manuel Ferris MD [address] [place] [address] ReferringFamily Medicine07/06/24Team MemberRelationshipSpecialtyStart DateEnd Date Manuel Ferris MD PCP - GeneralFamily Cslyzfox81/7/22 Manuel Ferris MD ReferringFamily Medicine02/12/22 Manuel Ferris MD [address] [place] [address] ReferringPenikese [facility] Medicine07/06/24 Team Status: Inactive Member Role [...] DateEnd Date Gay De La Torre MD [address] [place], [place] [phone] Referring [facility]07/18/24Team MemberRelationshipSpecialtyStart DateEnd Date Manuel Ferris MD PCP - GeneralFamily Nkyhhzkb09/7/22 Manuel Ferris MD ReferringFamily Medicine02/12/22 Manuel Ferris MD [address] [place] [address] ReferringPenik[facility] Medicine07/06/24Team MemberRelationshipSpecialtyStart DateEnd Date Manuel Ferris MD PCP - GeneralPenik[facility] Usonsfeq34/7/22 Manuel Ferris MD ReferringFanorfolk state hospital Medicine02/12/22 Manuel Ferris MD [address] [place] [address] ReferringSt. [facility]07/06/24Team MemberRelationshipSpecialtyStart End Manuel Ferris MD PCP - GeneralSt. [facility] Hospital02/27/22 Manuel Ferris MD ReferringSt. [facility] Hospital02/12/22 Manuel Ferris MD [address] [place] [address] ReferringSt. [facility]07/06/24 Team Status: Inactive Member Role Status Dates Gay De La Torre FLAT SHEET MAKER-C Primary Care Provider Active Start: January 31, 2025 End: January 31, 2025Shana Kang MDAttchristopher ProviderActiveStart: January 31, 2025 End: January 31, 2025Team MemberRelationshipSpecialtyStart DateEnd Gay De La Torre MD [address] [place] [address] Referring PhysicianSt. [facility] Hospital07/18/24Team MemberRelationshipSpecialtyStart DateEnd Gay De La Torre MD [address] [place] [address] Referring PhysicianSt. Francis Hospital07/18/24Team MemberRelationshipSpecialtyStart DateEnd Date Gay De La Torre MD [address] [place] [address] Referring [facility]07/18/24 Team Status: Inactive Member Role Status Dates Terence Blum MD Attending Provider Active Sta rt: March 02, 2025 End: March 02, 2025Gay De La Torre NP-CPrimary Care ProviderActiveStart: March 02, 2025 End: March 02, 2025Team MemberRelationshipSpecialtyStart DateEnd Date Gay De La Torre MD [address] [place] [address] Referring [facility]07/18/24 Team Status: Inactive Member Role Status Dates Jose Perez DO Attending Provider Active S tart: March 03, 2025 End: March 03, 2025 Team Status: Inactive Member Role/Relationship Status Dates Gay De La Torre FLAT SHEET MAKER-C Primary Care Provider Active Start: December 12, 2024 End: December 12, 2024Luiz Gee ProviderActiveStart: December 12, 2024 End: December 12, 2024 Team Status: Inactive Member Role/Relationship Status Dates Gay De La Torre FLAT SHEET MAKER-C Primary Care Provider Active Start: January 17, 2025 End: January 17, 2025Pefrank Arnett NPAttending ProviderActiveStart: January 17, 2025 End: January 17, 2025 Team Status: Active Member Role/Relationship Status Dates Gay De La Torre FLAT SHEET MAKER-C Primary Care Provider Active Start: January 31, 2025 Zarina Pickering ProviderActiveStart: January 31, 2025 Amy Pickering ProviderActiveStart: January 31, 2025 Team Status: Inactive Member Role/Relationship Status Dates Gay De La Torre FLAT SHEET MAKER-C Primary Care Provider Active Start: February 14, [...] February 28, 2025Pafrancesco De La Torre , FLAT SHEET MAKER-CPrimary Care ProviderActiveStart: February 28, 2025 End: February 28, 2025 Team Status: Inactive Member Role/Relationship Status Dates Terence Blum MD Attending Provider Active Sta rt: March 02, 2025 End: March 02, 2025Pamelal De La Torre , FLAT SHEET MAKER-CPrimary Care ProviderActiveStart: March 02, 2025 End: March 02, 2025 Team Status: Inactive Member Role/Relationship Status Dates Jose Perez DO Attending Provider Active S tart: March 03, 2025 End: March 03, 2025 Team Status: Inactive Member Role/Relationship Status Dates Gay De La Torre , FLAT SHEET MAKER-C Attending Provider Active Start: March 09, 2025 [...] DateEnd Date Gay De La Torre CNP [address] [place] [phone] PCP - GeneralNurse Practitioner - Xvzldu71/4/24Team MemberRelationshipSpecialty Start DateEnd Date Gay De La Torre MD [address] [place] [address] Referring PhysicianFamily [facility]07/18/24Team MemberRelationshipSpecialtyStart DateEnd Date Charles Nicole MD PCP - GeneralFamily Medicine Gay De La Torre MD [address] [place], [place] [phone] Referring [facility]icianmiJeff [facility]07/18/24Team MemberRelationshipSpecialtyStart [facility] Charles Nicole MD PCP - GeneralFamily Medicine Gay De La Torre MD [address] [place] [address] Referring [facility]icianSt. [facility]07/18/24Team MemberRelationshipSpecialtyStart [facility] Charles Nicole MD PCP - Generalmily Medicine Gay De La Torre MD [address] [place], [place] [phone] Referring PhysicianSt. Francis Hospital07/18/24Team MemberRelationshipSpecialtyStart [facility] Gay De La Torre MD [address] [place], [place] [phone] Referring PhysicianSt. Francis Hospital07/18/24 Inactive Administered Medications - up to [...] BE BASED ON THE PRIMARY CLINICAL RECORDS. [employer] [facility]. provides no warranty or guarantee of the accuracy or completeness of information in this document.
== END 2025-05-19 06:09 | disposition home or self-care (01) ==
PROVIDERS: Emergency Provider Emergency Medicine; PCP Nurse Practitioner Family
DX: L02.31 Cutaneous abscess of buttock (principal); R52 Pain, unspecified; L53.8 Other specified erythematous conditions
CPT/HCPCS: 99284